=== PATIENT | female | born 1995 | race Caucasian/White ===

== ENCOUNTER 2023-08-15 21:17 | Outpatient (REF) | payer BC, OTHER, SELFPAY ==
[2023-08-21 12:09] LABS: Age Gdln ACOG Testing Note (.); IGP, rfx Aptima HPV ASCU Note (.)
== END 2023-08-15 21:18 | disposition home or self-care (01) ==
LOC: LAB 21:17
PROVIDERS: Family Provider Family Medicine; Visit Provider Physician Assistant
DX: Z01.419 Encounter for gynecological examination (general) (routine) without abnormal findings (principal)
CPT/HCPCS: G0145

== ENCOUNTER 2024-01-15 07:55 | Outpatient (OUT) | payer BC, OTHER, SELFPAY ==
--- NOTE | 2024-01-15 07:57 | US_ITS ---
[address] [address] Patient Name: JUHI COPE MRN: [id number] date: 1995 Sex: F Assigned Patient Location: [facility] Current Patient Location: [facility] Accession/Order Number: [id number] Exam Date: 01/15/2024 07:57 Report Date: 01/15/2024 11:42 At the request of: JONY MEJÍA Procedure: US pelvis w/ transvaginal EXAMINATION: US pelvis w/ transvaginal HISTORY: PELVIC PAIN COMPARISON: No relevant comparison available. TECHNIQUE: Transabdominal and/or transvaginal sonographic examination was performed as indicated by examination type. FINDINGS: UTERUS: Normal size and appearance. Uterus size: 7.3 x 3.1 x 4.4 cm ENDOMETRIUM: Normal homogeneous appearance. Endometrial thickness: 3 mm RIGHT OVARY: Normal size and appearance. Duplex Doppler demonstrates normal waveform and flow; resistive index 0.6. Ovary size: 2.5 x 1.3 x 2.7 cm LEFT OVARY: Normal size and appearance. Duplex Doppler demonstrates normal waveform and flow; resistive index 0.6. Ovary size: 3.6 x 1.2 x 2.3 cm CUL-DE-SAC: Unremarkable. No significant free fluid. BLADDER: Unremarkable. OTHER: None. US/US pelvis w/ transvaginal IMPRESSION: 1. Normal pelvic ultrasound. No suspicious findings to account for patient's symptoms. Electronically authenticated by: JOE WATERMAN Date: 01/15/2024 11:42
== END 2024-01-15 07:56 | disposition home or self-care (01) ==
LOC: NOMS 07:55
PROVIDERS: Family Provider Family Medicine; Visit Provider Obstetrics & Gynecology
DX: R10.2 Pelvic and perineal pain (principal)
CPT/HCPCS: 76830; 76856

== ENCOUNTER 2024-02-13 14:30 | Outpatient (OUT) | payer BC, OTHER, SELFPAY ==
--- NOTE | 2024-02-13 14:32 | ECG_ITS ---
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
--- OUTSIDE RECORDS SUMMARY | 2024-02-13 14:46 | XMS_ITS | CCD ---
Author Organization [facility] Care Team Providers Care Compressor Technician Name Role Phone Unavailable Unavailable OPAL LARA Referring Unavailable RODRÍGUEZ, CRUZ Primary Care Unavailable OPAL LARA Referring Unavailable RODRÍGUEZ, CRUZ Primary Care Unavailable RODRÍGUEZ, CRUZ Primary Care Physician Domo Hodges Unavailable PAOLO DIALLO Attending Unavailable KATHE RYDER Admitting Unavailable KATHE RYDER Attending Unavailable Rodríguez, Cruz Primary Care Unavailable PrintyCurz Admitting Unavailable Cruz Meza Attending Unavailable Rodríguez, Cruz Admitting Unavailable Rodríguez, Cruz Primary Care Unavailable RodríguezCruz Attending Unavailable Rodríguez, Cruz Primary Care Unavailable RodríguezCruz Attending Unavailable Rodríguez, Cruz Admitting Unavailable Rodríguez Cruz BLACKWELL Primary Care Provider Lara, Astrit H Admitting Unavailable Nathan POP Attending Unavailable MD Cruz Meza Admitting Unavailable MD Cruz Meza Attending Unavailable Von Loco Attending Unavailable Haferoz, Astrit H Attending Unavailable Fredi DORSEY Admitting Unavailable Fredi DORSEY Attending Unavailable GRIS DOWNSIN N Attending Unavailable MARGIER SRINIVASA N Referring Unavailable RODRÍGUEZ, CRUZ SAHIL Primary Care Unavailable MARCY RODRIGUEZN Attending Unavailable RODRÍGUEZ, CRUZ SAHIL Primary Care Unavailable MARGIER SRINIVASA Attending Unavailable RODRÍGUEZ, CRUZ SAHIL Primary Care Unavailable CHARLENE RODRIGUEZ Attending Unavailable RODRÍGUEZ, CRUZ SAHIL Primary Care Unavailable CHARLENE RODRIGUEZ Attending Unavailable RODRÍGUEZ, CRUZ SAHIL Primary Care Unavailable REAPER, SRINIVASA Referring Unavailable REAPER, SRINIVASA Attending Unavailable RODRÍGUEZ, CRUZ SAHIL Referring Unavailable CRUZ RODRÍGUEZ Primary Care Unavailable CHARLENE RODRIGUEZ Attending Unavailable CRUZ RODRÍGUEZ Primary Care Unavailable CHARLENE RODRIGUEZ Referring Unavailable Cruz Rodríguez MD Unavailable Cruz Rodríguez MD Primary Care Provider [phone] Cruz Rodríguez MD Unavailable iKta BLEACH ANALYST, Zenobia Unavailable Keesha BLEACH ANALYST, Trista Hurtado Unavailable [phone] NATHAN POP Attending Unavailable NATHAN POP Attending Unavailable CRUZ RODRÍGUEZ Attending Unavailable Allergies Allergy Classification Reported Allergen(s) Allergy Type Date of Onset Reaction(s) Facility (1 source) No Known Medication Allergies; Translations: [No Known Medication Allergies] Propensity to adverse reactions (disorder) [facility] Medications Current Medications Medication Drug Class(es) Dates Sig (Normalized) Sig (Original) atenolol 25 mg oral tablet (3 sources) beta-Adrenergic Negro Start: 02-02-2021 take 1 mg by mouth once daily atenolol 25 mg Tab mg tab(s), Oral, Daily, Refills(s) 0 Start Date: 02/02/21 Status: Ordered cephalexin 500 mg oral capsule (5 sources) Cephalosporin Antibacterial Start: 02-14-2021 End: 07-21-2022 take 1 capsule by mouth every twelve hours Keflex 500 mg Cap 500 mg = 1 cap(s), Oral, q12hr, X 7 day(s), # 14 cap(s), Refills(s) 0 Start Date: 07/14/22 Stop Date: 07/21/22 Status: Ordered cyproheptadine hydrochloride 4 mg oral tablet (8 sources) Start: 02-02-2021 take 1 mg by mouth three times daily cyproheptadine 4 mg Tab mg tab(s), Oral, TID, Refills(s) 0 Start Date: 02/02/21 Status: Ordered Dasetta 7/7/7 oral tablet (1 source) Start: 11-23-2016 take 1 tablet by mouth once daily Dasetta 7/7/7 oral tablet 1 tab(s), Oral, Daily, Refill(s) 0, control/menstrual regulation Start Date: 11/23/16 Status: Ordered docusate sodium 100 mg oral capsule (2 sources) Start: 07-14-2022 End: 07-24-2022 take 1 capsule by mouth twice daily Colace 100 mg Cap 100 mg = 1 cap(s), Oral, BID, X 10 day(s), # 20 cap(s), Refills(s) 0 Start Date: 07/14/22 Stop Date: 07/24/22 Status: Ordered ergocalciferol 0.05 mg oral capsule (1 source) Provitamin D2 Compound Start: 02-02-2021 Vitamin D2 2000 intl units oral capsule Oral, Daily, Refills(s) 0 Start Date: 02/02/21 Status: Ordered Ethinyl Estradiol / Levonorgestrel (2 sources) Progestin, Estrogen, Progestin-containin g Intrauterine Device Start: 01-10-2024 End: 04-09-2024 take 1 tablet by mouth in the morning, then take 1 tablet by mouth once daily levonorgestrel-ethi nyl estradiol (Jolessa) 0.15-0.03 MG tablet Indications: Uses control Take 1 tablet by mouth in the morning. Take 1 tablet by mouth daily. 90 tablet 0 01/10/2024 04/09/2024 Active {7 (Ethinyl Estradiol 0.035 MG / Norethindrone 0.5 MG Oral Tablet) / 7 (Ethinyl Estradiol 0.035 MG / Norethindrone 0.75 MG Oral Tablet) / 7 (Ethinyl Estradiol 0.035 MG / Norethindrone 1 MG Oral Tablet) / 7 (Inert Ingredients 1 MG Oral Tablet) } Pack [Dase (2 sources) Estrogen Start: 11-23-2016 take 1 tablet by mouth once daily Dasetta 7//7 oral tablet 1 tab(s), Oral, Daily, Refill(s) 0, control/menstrual regulation Start Date: 11/23/16 Status: Ordered ethinyl estradiol 0.035 mg / norgestimate 0.25 mg oral tablet (3 sources) Progestin, Estrogen Start: 01-15-2023 norgestimate-ethiny l estradiol (Ortho-Cyclen) 0.25-35 MG-MCG tablet 1 (one) time each day at the same time. 0 01/15/2023 Active Bibb-Linyah 0.25 -35 MG-MCG Oral for 28 Not-Taking hydrOXYzine hydrochloride 25 mg oral tablet (8 sources) Antihistamine Start: 02-02-2021 take 1 mg by mouth four times daily hydrOXYzine hydrochloride 25 mg Tab mg tab(s), Oral, QID, Refills(s) 0 Start Date: 02/02/21 Status: Ordered hyoscyamine sulfate 0.125 mg oral tablet (8 sources) Start: 03-10-2021 take 1 tablet by mouth every six hours Levsin 0.125 mg SL Tab 0.125 mg = 1 tab(s), Oral, q6hr, # 20 tab(s), Refills(s) 1, [facility]: [id number], 161, cm, 03/10/21 11:21:00 EDT, Height/Length Dosing, 56, kg, 03/10/21 11:21:00 EDT, Weight Dosing Start Date: 03/10/21 Status: Ordered ibuprofen 600 mg oral tablet (8 sources) Nonsteroidal Anti-inflammatory Drug Start: 01-23-2022 take 1 tablet by mouth every six hours ibuprofen 600 mg Tab 600 mg = 1 tab(s), Oral, q6hr, # 40 tab(s), Refills(s) 0, [facility]: [facility], 157, cm, 01/23/22 7:20:00 EST, Height/Length Dosing, 55, kg, 01/23/22 7:20:00 EST, Weight Dosing Start Date: 01/23/22 Status: Ordered meloxicam 15 mg oral tablet (3 sources) Nonsteroidal Anti-inflammatory Drug Start: 02-02-2021 take 1 mg by mouth once daily meloxicam 15 mg oral tablet mg tab(s), Oral, Daily, Refills(s) 0 Start Date: 02/02/21 Status: Ordered 24 hr metoprolol succinate 25 mg extended release oral tablet (15 sources) beta-Adrenergic Negro Start: 10-23-2023 take 1 tablet by mouth once daily metoprolol succinate XL (Toprol-XL) 25 MG 24 hr tablet Indications: Hypertension, unspecified type (CMS/HCC) Take 1 tablet by mouth daily 90 tablet 1 10/23/2023 Active Start: 02-27-2023 metoprolol suc cinate ER (TOPROL XL) 25 mg 24 hr tablet norethindrone acetate 5 mg oral tablet (20 sources) Start: 05-17-2023 End: 07-01-2024 take 2 tablets by mouth once daily norethindrone (AYGESTIN) 5 mg tablet Take 2 tablets by mouth once daily. 60 tablet 5 01/03/2024 07/01/2024 Active Start: 04-11-2023 End: 04-10-2024 norethindrone (Aygestin) 5 M G tablet Start: 07-21-2020 take 1 tablet by ghada th once daily Norethindrone Acetate 5 MG Oral Tablet TAKE 1 TABLET DAILY. Quantity: 1 Refills: 0 Ordered: 21-Jul-2020 Meñofanny Charlene DAY Start : 21-Jul-2020 Active Comment on above: Take 1 tablet by ghada th once daily. Take 2 tablets by [facility] once daily. ondansetron 4 mg oral tablet (8 sources) Serotonin-3 Receptor Antagonist Start: 07-14-2022 take 1 tablet by mouth every six hours as needed for nausea Zofran 4 mg Tab 1 tab(s), Oral, q6hr, PRN Nausea, # 8, Refills(s) 0 Start Date: 07/14/22 Status: Ordered Start: 06-08-2020 take 1 tablet by ghada th three times daily Zofran 4 MG 1 tablet Orally THREE TIMES A DAY for 30 day(s) May, Not-Taking pramoxine hydrochloride 10 mg/ml rectal foam (2 sources) Start: 07-14-2022 End: 07-21-2022 take 15 g rectal route twice daily ProctoFoam 1% Foam apply, Rectal, BID for 7 day(s), 15 gm, Refill(s) 0 Start Date: 07/14/22 Stop Date: 07/21/22 Status: Ordered Multivitamins with Vitamin B Complex, Vitamin C, Minerals and L-Methylfolate oral capsule (7 sources) Start: 07-14-2022 Multivitamins with Vitamin B Complex, Vitamin C, Minerals and L-Methylfolate oral capsule 1 cap(s), Oral, Daily, 30 cap(s), Refill(s) 0 Start Date: 07/14/22 Status: Ordered SUMAtriptan 100 mg oral tablet (8 sources) Serotonin-1b and Serotonin-1d Receptor Agonist Start: 02-02-2021 take 1 mg by mouth once Imitrex 100 mg Tab mg tab(s), Oral, Once, Refills(s) 0 Start Date: 02/02/21 Status: Ordered tiZANidine 4 mg oral tablet (3 sources) Central alpha-2 Adrenergic Agonist Start: 02-02-2021 take 1 mg by mouth every eight hours tiZANidine 4 mg Tab mg tab(s), Oral, q8hr, Refills(s) 0 Start Date: 02/02/21 Status: Ordered Vitamin D2 2000 intl units oral capsule (7 sources) Start: 02-02-2021 Vitamin D2 200 0 intl units oral capsule Oral, Daily, Refills(s) 0 Start Date: 02/02/21 Status: Ordered Completed/Discontinued Medications Medication Drug Class(es) Dates Sig (Normalized) Sig (Original) atropine sulfate 0.0194 mg / hyoscyamine sulfate 0.1037 mg / PHENobarbital 16.2 mg / scopolamine hydrobromide 0.0065 mg oral tablet (1 source) Anticholinergic, Cholinergic Muscarinic Antagonist Start: 05-27-2020 take 1 tablet by mouth every eight hours 16.2 MG 1 tablet Orally Three times a day for 30 day(s) May, Not-Taking baclofen suppository 10 mg (CPD) (6 sources) Start: 08-24-2023 baclofen suppository 10 mg (CPD) Indications: High-tone pelvic floor dysfunction , Chronic pelvic pain in female Unwrap and insert one suppository vaginally daily at bedtime. 30 Suppository 2 08/24/2023 Active Comment on above: Unwrap and insert on e suppository vaginally daily at bedtime. chlordiazePOXIDE hydrochloride 5 mg / clidinium bromide 2.5 mg oral capsule (1 source) Anticholinergic, Benzodiazepine Start: 06-02-2020 take 1 capsule by mouth every eight hours chlordiazePOXIDE-Cl idinium 5-2.5 MG 1 capsule before meals Orally Three times a day for 30 day(s) May, Not-Taking cyclobenzaprine hydrochloride 5 mg oral tablet (20 sources) Muscle Relaxant Start: 05-01-2023 End: 01-10-2024 take 1 tablet by mouth every twenty-four hours as needed cyclobenzaprine (Flexeril) 5 MG tablet Take 5 mg by mouth Daily as needed. 0 05/01/2023 01/10/2024 Discontinued (Therapy completed) Start: 11-07-2021 take 1 tablet by ghada th three times daily as needed for muscle spasms cyclobenzaprine 10 mg Tab 10 mg = 1 tab(s), Oral, TID, PRN for spasm, # 30 tab(s), Refills(s) 0, Pharmacy: [facility], 157, cm, 01/23/22 7:20:00 EST, Height/Length Dosing, 55, kg, 01/23/22 7:20:00 EST, Weight Dosing Start Date: 01/23/22 Status: Ordered Comment on above: Take 1 tablet by ghada th at bedtime as needed. elagolix 150 mg oral tablet (11 sources) Start: 07-16-2023 End: 07-15-2024 take 1 tablet by mouth in the morning Orilissa tablet Take 150 mg by mouth in the morning. 0 07/16/2023 01/10/2024 Discontinued (Therapy completed) Start: 02-09-2022 take 1 tablet by ghada th twice daily Orilissa 200 MG Oral Tablet take 1 tablet by mouth twice a day Quantity: 60 Refills: 4 Ordered: 09-Feb-2022 Charlene Rodriguez DO Start : 09-Feb-2022 Active Comment on above: Take 1 tablet (150 m g) by mouth once daily. FLUoxetine 20 mg oral capsule (14 sources) Serotonin Reuptake Inhibitor Start: 06-02-2021 take 1 capsule by mouth once daily FLUoxetine HCl - 20 MG Oral Capsule TAKE 1 CAPSULE Daily Quantity: 30 Refills: 11 Ordered: 02-Jun-2021 Charlene Rodriguez DO Start : 02-Jun-2021 Active take 1 capsule by mouth once chapis ly FLUoxetine (PROZAC) 10 mg capsule Take 10 mg by mouth once daily. 0 Active Comment on above: Take 10 mg by mouth once daily. iv contrast (will be provided with radiology test) (10 sources) Start: 023 iv contrast (will be provided with radiology test) MRI Female Pelvis Inject, intravenously, once for 1 dose. No IV access, insert saline lock prior to the beginning of sedation, infusion, injection of imaging exam. Discontinue saline lock post exam. If Pt has a central line or IVAD, may access for administration according to line specific nursing protocol. Once exam is complete flush line and de-access according to line specific nursing protocol in the MR contrast administration guidelines link. 1 Each 0 05/17/2023 Active Comment on above: MRI Female Pelvis In ject, intravenously, once for 1 dose. No IV access, insert saline lock prior to the beginning of sedation, infusion, injection of imaging exam. Discontinue saline lock post exam. If Pt has a central line or IVAD, may access for administration according to line specific nursing protocol. Once exam is complete flush line and de-access according to line specific nursing protocol in the MR contrast administration guidelines link. metoclopramide 10 mg oral tablet (1 source) Dopamine-2 Receptor Antagonist Start: 020 take 1 tablet by mouth every eight hours Reglan 10 MG 1 tablet before meals Orally tid for 30 day(s) March, Not-Taking naproxen 500 mg oral tablet (20 sources) Nonsteroidal Anti-inflammatory Drug Start: 021 take 1 tablet by mouth twice daily naproxen 500 mg oral enteric coated tablet 500 mg = 1 tab(s), Oral, BID, # 28 tab(s), Refills(s) 0 Start Date: 11/07/21 Status: Ordered Start: 03-04-2021 End: 07-10-2023 take 1 tablet by mouth every twelve hours as needed naproxen (NAPROSYN) 500 mg tablet Take 1 tablet by mouth twice daily as needed. for pain. Take with food. 30 tablet 3 04/11/2023 07/10/2023 Comment on above: Take 1 tablet by ghada twice daily as needed. for pain. Take with food. nitrofurantoin, macrocrystals 25 mg / nitrofurantoin, monohydrate 75 mg oral capsule (6 sources) Nitrofuran Antibacterial Start: 021 Nitrofurantoin Monohyd Macro 100 MG Oral Capsule TAKE 1 CAPSULE Other Please take one capsule after sexual intercourse to prevent UTI Quantity: 30 Refills: 11 Ordered: 01-Apr-2021 Nicholas Chau MD Start : 01-Apr-2021 Active phenazopyridine hydrochloride 200 mg oral tablet (8 sources) Start: take 1 tablet by mouth three times daily Pyridium 200 mg Tab 200 mg = 1 tab(s), Oral, TID, Take one tab by mouth three times a day for three days, # 9 tab(s), Refills(s) 0, Pharmacy: [facility], 157, cm, 03/04/21 7:22:00 EDT, Height/Length Dosing, 52, kg, 03/04/21 7:22:00 EDT, Weight Dosing Start Date: 03/04/21 Status: Ordered predniSONE 10 mg oral tablet (2 sources) Start: End: take 2 tablets by mouth twice daily, then take 1 tablet by mouth twice daily, then take 1 tablet by mouth once daily predniSONE (Deltasone) 10 MG tablet Indications: Plantar fasciitis Take 2 pills by mouth twice daily for 5 days, take 1 pill twice daily for 5 days then 1 pill once daily for 5 days. 35 tablet 0 09/10/2023 01/10/2024 Discontinued (Therapy completed) Surgical Lubricant Jelly gel (10 sources) Start: Surgical Lubricant Jelly gel For MRI Female Pelvis, MRI department to provide. Administer intra-vaginal Surgilube immediately prior the MRI procedure (total amount to patient toleranace). 1 g 0 05/17/2023 Active Comment on above: For MRI Female Pelvi s, MRI department to provide. Administer intra-vaginal Surgilube immediately prior the MRI procedure (total amount to patient toleranace). traMADol hydrochloride 50 mg oral tablet (7 sources) Opioid Agonist Start: take 1 tablet by mouth every four hours as needed for pain traMADol (ULTRAM) 50 mg tablet Indications: Pelvic pain in female Take 1 tablet by mouth every 4 hours as needed for pain. 20 tablet 0 08/30/2023 Active Start: 08-18-2020 take 1 tablet by ghada th every six hours traMADol HCl - 50 MG Oral Tablet TAKE 1 TABLET Every 6 hours Quantity: 20 Refills: 0 Ordered: 18-Aug-2020 Charlene Rodriguez DO Start : 18-Aug-2020 Active Comment on above: Take 1 tablet by ghada th every 4 hours as needed for pain. Problems Active Problems Problem Classification Problem Date Documented Da te Episodic/Chronic Abdominal pain (16 sources) Epigastric pain; Translations: [Epigastric pain] Onset: 07-14-2022 Episodic Anxiety disorders (16 sources) Anxiety; Translations: [Anxiety state, unspecified] Onset: 10-08-2020 10-08-2020 Chronic Cardiac dysrhythmias (2 sources) Paroxysmal tachycardia; Translations: [Paroxysmal tachycardia, unspecified] Onset: 03-29-2023 03-29-2023 Chronic Deficiency and other anemia (1 source) Anemia, unspecified; Translations: [Anemia, unspecified] Onset: 03-23-2023 Episodic Endometriosis (7 sources) Endometriosis (clinical); Translations: [Endometriosis, site unspecified] Onset: 03-29-2023 Chronic Essential hypertension (16 sources) Essential (primary) hypertension; Translations: [Hypertensive disorder] Onset: 03-23-2023 10-08-2020 Chronic Genitourinary symptoms and ill-defined conditions (20 sources) Microscopic hematuria; Translations: [Nocturia] 02-02-2021 Episodic Headache; including migraine (20 sources) Migraine; Translations: [Migraine, unspecified, not intractable, without status migrainosus] Onset: 10-08-2020 08-07-2018 Chronic Headache; including migraine (10 sources) Headache; Translations: [Headache, unspecified] Onset: 01-31-2023 02-14-2021 Episodic Hemorrhoids (1 source) Hemorrhoids; Translations: [Unspecified hemorrhoids] Onset: 07-14-2022 Episodic Hypertension complicating ; childbirth and the puerperium (4 sources) Severe pre-eclampsia complicating childbirth; Translations: [Severe pre-eclampsia, third trimester] Onset: 11-28-2022 Episodic Joint disorders and dislocations; trauma-related (2 sources) Disorder of left patellofemoral joint; Translations: [Patellofemoral disorders, left knee] Onset: 03-29-2023 03-29-2023 Chronic Joint disorders and dislocations; trauma-related (2 sources) Disorder of right patellofemoral joint; Translations: [Patellofemoral disorders, right knee] Onset: 03-29-2023 03-29-2023 Chronic Menstrual disorders (20 sources) Dysmenorrhea; Translations: [Dysmenorrhea, unspecified] Onset: 10-08-2020 04-23-2019 Chronic Nausea and vomiting (1 source) Nausea and vomiting; Translations: [Nausea with vomiting, unspecified] Episodic Nonspecific chest pain (1 source) Chest pain; Translations: [Chest pain, unspecified] Episodic Nutritional deficiencies (2 sources) Vitamin D deficiency; Translations: [Vitamin D deficiency, unspecified] Onset: 03-29-2023 03-29-2023 Chronic Other acquired deformities (2 sources) Scoliosis deformity of spine; Translations: [Scoliosis, unspecified] Onset: 03-29-2023 03-29-2023 Chronic Other bone disease and musculoskeletal deformities (8 sources) Disorder of bone 08-07-2018 Episodic Comment on above: right shoulder right shoulder Other circulatory disease (1 source) Elevated blood-pressure reading without diagnosis of hypertension; Translations: [Elevated blood-pressure reading, without diagnosis of hypertension] Onset: 09-12-2023 Episodic Other complications of ; puerperium affecting management of mother (1 source) Delayed AND/OR secondary hemorrhage; Translations: [Delayed and secondary hemorrhage] Onset: 12-30-2022 Episodic Other complications of (1 source) Finding related to ; Translations: [Other specified related conditions, unspecified trimester] Onset: 07-14-2022 Episodic Other connective tissue disease (1 source) Diastasis recti; Translations: [Separation of muscle (nontraumatic), other site] Episodic Other female genital disorders (8 sources) Abnormal uterine bleeding 04-23-2019 Chronic Other female genital disorders (1 source) Dyspareunia; Translations: [Other specified dyspareunia] Chronic Other female genital disorders (2 sources) Pain in female genitalia on intercourse; Translations: [Unspecified dyspareunia] Onset: 03-29-2023 03-29-2023 Chronic Other female genital disorders (2 sources) Pelvic floor dysfunction; Translations: [Other specified conditions associated with female genital organs and menstrual cycle] Episodic Other gastrointestinal disorders (1 source) Constipation, unspecified; Translations: [Constipation, unspecified] Onset: 07-14-2022 Episodic Other hereditary and degenerative nervous system conditions (2 sources) Finding of scapular structure; Translations: [Other specified extrapyramidal and movement disorders] Onset: 05-04-2023 05-04-2023 Chronic Other nervous system disorders (1 source) Other chronic pain; Translations: [Chronic pelvic pain in female] Onset: 08-24-2023 Chronic Other nervous system disorders (2 sources) Chronic pain; Translations: [Other chronic pain] Onset: 03-29-2023 03-29-2023 Chronic Other screening for suspected conditions (not mental disorders or infectious disease) (2 sources) Elevated liver enzymes level; Translations: [Other specified abnormal findings of blood chemistry] Onset: 04-18-2022 Resolved: 04-18-2022 Episodic Other upper respiratory disease (2 sources) Allergic rhinitis due to pollen; Translations: [Allergic rhinitis due to pollen] Onset: 03-29-2023 03-29-2023 Chronic Residual codes; unclassified (2 sources) Contraception ; Translations: [Other specified health status] 01-10-2024 Episodic Spondylosis; intervertebral disc disorders; other back problems (2 sources) 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; Translations: [Other cervical disc displacement, unspecified cervical region] Onset: 03-29-2023 03-29-2023 Chronic Unclassified (1 source) Paroxysmal tachycardia, unspecified; Translations: [Paroxysmal tachycardia, unspecified] Onset: 08-23-2022 Unclassified (1 source) Z34.01 - Encounter for supervision of normal first , first trimester; Translations: [Z34.01 - Encounter for supervision of normal first , first trimester] Onset: 05-16-2022 Urinary tract infections (20 sources) Recurrent urinary tract infection; Translations: [Urinary tract infection, site not specified] Onset: 07-14-2022 03-10-2021 Episodic Past or Other Problems Problem Classification Problem Date Documented Da te Episodic/Chronic Acquired foot deformities (2 sources) Acquired equinus deformity of foot; Translations: [Other acquired deformities of unspecified foot] Onset: 03-29-2023 03-29-2023 Episodic Nutritional deficiencies (2 sources) Cobalamin deficiency; Translations: [Deficiency of other specified B group vitamins] Onset: 03-29-2023 03-29-2023 Episodic Other connective tissue disease (2 sources) Posterior calcaneal exostosis; Translations: [Calcaneal spur, unspecified foot] Onset: 03-29-2023 03-29-2023 Episodic Other disorders of stomach and duodenum (3 sources) Gastroparesis syndrome; Translations: [Gastroparesis] Onset: 03-29-2023 03-29-2023 Episodic Other female genital disorders (1 source) Other specified conditions associated with female genital organs and menstrual cycle; Translations: [High-tone pelvic floor dysfunction] Onset: 08-24-2023 Episodic Other gastrointestinal disorders (15 sources) Constipation; Translations: [Constipation, unspecified] Onset: 10-08-2020 10-08-2020 Episodic Other gastrointestinal disorders (2 sources) Swallowing painful; Translations: [Dysphagia, unspecified] Onset: 03-29-2023 03-29-2023 Episodic Other nutritional; endocrine; and metabolic disorders (14 sources) Loss of appetite; Translations: [Anorexia] Onset: 05-27-2020 10-08-2020 Episodic Syncope (13 sources) Vasovagal syncope; Translations: [Syncope and collapse] Onset: 12-08-2014 12-08-2014 Episodic Unclassified (7 sources) Onset: 07-14-2022 Resolved: 03-26-2023 07-14-2022 Results Test Name Value Interpretation Reference Range Facility [facility] 12-12-2023 [facility] Telephone ([facility]) DRISS COPE ([id number]) 1995 F Date Time Provider Department 12/12/23 CHARLENE RODRIGUEZ [facility] During your visit today, we recorded the following information about you: Christa Garces 12/12/2023 2:16 PM Signed 1st attempt to contact the patient to schedule surgery. Allergies As of Date: 12/12/2023 (No Known Allergies) Date Reviewed: 12/10/2023 Reviewed by: Alayna Faye - Fully Assessed Reason for Visit: Schedule Surgery [1330] Prescriptions as of 12/12/2023 - traMADol (ULTRAM) 50 mg tablet Take 1 tablet by mouth every 4 hours as needed for pain. - baclofen suppository 10 mg (CPD) Unwrap and insert one suppository vaginally daily at bedtime. - elagolix (ORILISSA) 150 mg tablet Take 1 tablet (150 mg) by mouth once daily. - norethindrone (AYGESTIN) 5 mg tablet Take 2 tablets by mouth once daily. - iv contrast (will be provided with radiology test) MRI Female Pelvis Inject, intravenously, once for 1 dose. No IV access, insert saline lock prior to the beginning of sedation, infusion, injection of imaging exam. Discontinue saline lock post exam. If Pt has a central line or IVAD, may access for administration according to line specific nursing protocol. Once exam is complete flush line and de-access according to line specific nursing protocol in the MR contrast administration guidelines link. - Surgical Lubricant Jelly gel For MRI Female Pelvis, MRI department to provide. Administer intra-vaginal Surgilube immediately prior the MRI procedure (total amount to patient toleranace). - cyclobenzaprine (FLEXERIL) 5 mg tablet Take 1 tablet by mouth at bedtime as needed. - metoprolol succinate ER (TOPROL XL) 25 mg 24 hr tablet - norethindrone (AYGESTIN) 5 mg tablet Take 1 tablet by mouth once daily. - FLUoxetine (PROZAC) 10 mg capsule Take 10 mg by mouth once daily. Problem List As Of Date 12/12/2023 Noted Resolved Vasovagal attack [R55] 12/08/2014 Dysmenorrhea [N94.6] 10/08/2020 Anorexia [R63.0] 05/27/2020 Anxiety [F41.9] 10/08/2020 Constipation [K59.00] 10/08/2020 Migraine [G43.909] 10/08/2020 HTN (hypertension) [I10] Encounter Status:Closed by CHRISTA GARCES on 12/12/23 [facility] CNOVon 12-10-2023 [facility] DRISS COPE ([id number]) 1995 F Date Time Provider Department 12/10/23 10:30 AM CHARLENE RODRIGUEZ During your visit today, we recorded the following information about you: Pulse Blood pressure Weight 98/minute 124/84 68.9 kg MeñoCharlene escobedoDO 12/10/2023 3:[address] [facility] SECTION FOR MINIMALLY INVASIVE GYNECOLOGIC SURGERY OUTPATIENT VISIT DATE 12/10/2023 OUTPATIENT VISIT TYPE Follow-up visit PRIMARY CARE PHYSICIAN: Cruz Rodríguez [address] [place] [address] REFERRING PHYSICIAN: Self CHIEF COMPLAINT: No chief complaint on file. HISTORY OF PRESENT ILLNESS: Driss Cope is a pleasant 28 year old female who presents for evaluation of pelvic pain. ========= MEGAN 07/16/23: IMPRESSION: Ms. Cope is a 28 year old female who presents today with pelvic pain Reviewed pelvic MRI. Discussed findings with patient. Discussed medical and surgical management options. Rx'd Orilissa 150 mg daily. If patient continues to have pain, will proceed with diagnostic laparoscopy. Encouraged follow up with pelvic floor PT. Written and verbal health teaching given to patient, patient verbalizes understanding and agrees with treatment plan. Charlene DO Kuldip In clinic today, pt reports she still has pain monthly but no bleeding. States Orilissa has not improved her pain. She continues to have cramping and discomfort. Has failed norethindrone and Orilissa. 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 History Comments: Sexual Activity: Never; No partner data on record Contraception: Pill Past Obstetrical History: OB History T0 L1 SAB0 IAB0 Ectopic0 Multiple0 Live Births0 Past Medical History: PAST MEDICAL HISTORY Diagnosis Date Endometriosis HTN (hypertension) PONV (postoperative nausea and vomiting) Past Surgical History: PAST SURGICAL HISTORY Procedure Laterality Date APPENDECTOMY 2016 COLONOSCOPY COLONOSCOPY 10/25/2020 repeat 5 years PAST SURGICAL HISTORY OF 02/2019; 08/2020 laparoscopy for endometriosis Family History: FAMILY HISTORY Problem Relation Age of Onset Cancer Father Hypertension Maternal Grandfather Anesthesia Problems No Family History Blood Clots No Family History Clotting Disorder No Family History Social History: Social History Tobacco Use Smoking status: Never Smokeless tobacco: Never Substance Use Topics Alcohol use: Yes Comment: maybe a few drinks a month Drug use: No Current Outpatient Medications Medication Sig traMADol (ULTRAM) 50 mg tablet Take 1 tablet by mouth every 4 hours as needed for pain. elagolix (ORILISSA) 150 mg tablet Take 1 tablet (150 mg) by mouth once daily. metoprolol succinate ER (TOPROL XL) 25 mg 24 hr tablet norethindrone (AYGESTIN) 5 mg tablet Take 1 tablet by mouth once daily. baclofen suppository 10 mg (CPD) Unwrap and insert one suppository vaginally daily at bedtime. (Patient not taking: Reported on 12/10/2023) norethindrone (AYGESTIN) 5 mg tablet Take 2 tablets by mouth once daily. iv contrast (will be provided with radiology test) MRI Female Pelvis Inject, intravenously, once for 1 dose. No IV access, insert saline lock prior to the beginning of sedation, infusion, injection of imaging exam. Discontinue saline lock post exam. If Pt has a central line or IVAD, may access for administration according to line specific nursing protocol. Once exam is complete flush line and de-access according to line specific nursing protocol in the MR contrast administration guidelines link. Surgical Lubricant Jelly gel For MRI Female Pelvis, MRI department to provide. Administer intra-vaginal Surgilube immediately prior the MRI procedure (total amount to patient toleranace). cyclobenzaprine (FLEXERIL) 5 mg tablet Take 1 tablet by mouth at bedtime as needed. (Patient not taking: Reported on 12/10/2023) FLUoxetine (PROZAC) 10 mg capsule Take 10 mg by mouth once daily. (Patient not taking: Reported on 05/01/2023) No current facility-administered medications for this visit. Allergies As of Date: 12/10/2023 (No Known Allergies) Fully Assessed 12/10/2023 REVIEW OF SYSTEMS: POSITIVES IN BOLD Constitutional: Denies fever or chills GI: Denies abdominal pain, nausea, vomiting, bloody stools or diarrhea : Denies dysuria Psychiatric: Denies depression or anxiety PHYSICAL EXAMINATION: Vital Signs: 12/10/23 1019 BP: 124/84 Pulse: 98 Weight: 68.9 kg (151 lb 14.4 oz) Body mass index is 27.78 kg/m?. General appearance: Well appearing, alert, in no acute distress, well-hydrated, well nourished. Skin: Skin color, texture (more content not included)... [facility] Consent for Treatmenton 08-26 Consent for Treatment [id number] IFF [facility] Discharge Instructionson Discharge Instructions [id number] IFF [facility] ED Clinical Summaryon 2022 ED Clinical Summary (Inserted Image. Poly ble to display) [place] [id number] ED Clinical Summary Person Information Name: DRISS COPE [facility] Age: 28 Years : 1995 Sex: Female Language: Paraguayan PCP: CRUZ RODRÍGUEZ MD Marital Status: Single Visit Id: Visit Reason: Blood pressure check; Headache; HEADACHE Speciality: Acuity: 3 Enc Type: Emergency Med Service: Emergency Arrival: 09/12/2023 17:21:17 Discharge: 09/12/2023 18:18:02 LOS: 000 00:57 Checkin: 09/12/2023 17:21:17 Checkout: 09/12/2023 18:18:02 Dispo Type: Home (Routine DC) EVENTS: Event Name Event Status Request Date/Time Start Date/Time Complete Date/Time Arrive Complete 09/12/2023 17:21:17 09/12/2023 17:21:17 09/12/2023 17:21:17 Document Home Meds Request 09/12/2023 17:21:17 Triage Complete 09/12/2023 17:21:17 09/12/2023 17:36:42 09/12/2023 17:36:42 Registration Complete 09/12/2023 17:23:06 09/12/2023 17:23:06 09/12/2023 17:23:06 Reg Complete Request 09/12/2023 17:23:06 Reg Bed Request Complete 09/12/2023 17:23:06 09/12/2023 17:23:06 09/12/2023 17:23:06 Bed Assign Complete 09/12/2023 17:23:45 09/12/2023 17:23:45 09/12/2023 17:23:45 Dr Exam Complete 09/12/2023 17:23:45 09/12/2023 17:27:54 09/12/2023 17:27:54 RN Exam Complete 09/12/2023 17:23:45 09/12/2023 17:38:29 09/12/2023 17:38:29 Registration Request 09/12/2023 17:27:54 Dr Exam Complete 09/12/2023 17:28:07 09/12/2023 17:28:07 09/12/2023 17:28:07 Meds Admin Complete 09/12/2023 18:02:41 09/12/2023 18:13:56 Discharge Complete 09/12/2023 18:03:45 09/12/2023 18:18:13 09/12/2023 18:18:13 Transfer Complete 09/12/2023 18:18:13 09/12/2023 18:18:13 09/12/2023 18:18:13 ADDRESS: [address] [place] [id number] PHYS DOC NOTES: MEDICAL INFORMATION: Prescriptions Given: Medications to Continue with No Changes Other Medications cyclobenzaprine (cyclobenzaprine 10 mg Tab) 1 Tablets By Mouth 3 times a day as needed for spasm. Refills: 0. cyclobenzaprine (cyclobenzaprine 10 mg Tab) 1 Tablets By Mouth 3 times a day as needed Spasm. Refills: 0. cyproheptadine (cyproheptadine 4 mg Tab) By Mouth 3 times a day. ergocalciferol (Vitamin D2 2000 intl units oral capsule) By Mouth every day. hydrOXYzine (hydrOXYzine hydrochloride 25 mg Tab) By Mouth 4 times a day. hyoscyamine (Levsin 0.125 mg SL Tab) 1 Tablets By Mouth every 6 hours. Refills: 1. ibuprofen (ibuprofen 600 mg Tab) 1 Tablets By Mouth every 6 hours. Refills: 0. multivitamin, ( Multivitamins with Vitamin B Complex, Vitamin C, Minerals and L-Methylfolate oral capsule) 1 Capsules By Mouth every day. naproxen (naproxen 500 mg oral enteric coated tablet) 1 Tablets By Mouth 2 times a day. Refills: 0. naproxen (naproxen 500 mg Tab) 1 Tablets By Mouth 2 times a day. Take one tab by mouth two times a day. Refills: 0. ondansetron (Zofran 4 mg Tab) By Mouth every 6 hours as needed Nausea. phenazopyridine (Pyridium 200 mg Tab) 1 Tablets By Mouth 3 times a day. Take one tab by mouth three times a day for three days. Refills: 0. sumatriptan (Imitrex 100 mg Tab) By Mouth Once. PATIENT EDUCATION INFORMATION: Instructions: How to Take Your Blood Pressure; Hypertension, Adult, Uopg-iu-Pbyx; General Headache Without Cause, Pcwp-bi-Xcqp Follow up: With: Address: When: CRUZ RODRÍGUEZ [facility] [place] [id number] [facility] () In 3 days 09/15/2023 Comments: Follow-up with your primary care provider in 3 to 5 days. If symptoms worsen, do not improve, or new symptoms arise please report back to emergency department for further evaluation. DIAGNOSIS: Elevated blood pressure reading; Headache [facility] ED Note-Physicianon 09-12-20 ED Note-Physician Basic Information Time Seen: Eric CLAYTON, Nikita Justin. 09/12/2023 17:27 Chief Complaint patient states that her blood pressure has been fluctuating and headache. Patient sttaes frontal headache. History of Present Illness 28-year-old female reports to the emergency department with a chief complaint of a frontal headache. Reports has been going on for the last week or so. She states that she has noticed her blood pressure has been fluctuating as well. Reports that she takes it at random times throughout the day. Reports that she is currently on metoprolol for this. States that she is on the lower dose. Reports that she does have a history of preeclampsia with during , and just wanted to get checked out. Denies any visual changes, chest pain or shortness of breath. Denies any heart issues otherwise. Review of Systems A 10 point review of systems is negative except as noted above. Medical and Surgical History: Reviewed and noted Social history: Lives at home Family History: Reviewed. Tobacco: Denies Physical Exam Vitals & Measurements T: 37.2 ?C(Oral) HR: 122(Peripheral) RR: 16 BP: 135/91 HT: 157 cm WT: 65 kg BMI: 26.37 General: The patient appears well and in no apparent distress. Patient is resting comfortably in chair. Afebrile Skin: Warm, dry, no pallor noted. Head: Normocephalic, atraumatic Neck: No JVD Eye: PERRLA, EOMI ENT: Moist mucus membranes Cardiovascular: Regular rate normal peripheral perfusion Respiratory: No respiratory distress no accessory muscle use no obvious audible wheezing Chest Wall: no deformity Musculoskeletal: normal ROM, no deformity, no swelling GI: No obvious distention soft nontender nondistended no guarding rebounding or rigidity Neurological: A&Ox4. moves all extremities equal strength and symmetry. No focal neurological defects. Psychiatric: Cooperative and appropriate Medical Decision Making MEDICAL DECISION MAKING Number and Complexity of Problems Differential Diagnosis: [] [facility] Data External documents reviewed: [] My EKG interpretation: [] My CT interpretation: [] My X-ray interpretation: [] My Ultrasound interpretation: [] Decision rules/scores evaluated: [] Discussed with: [] Treatment and Disposition ED Course: 28-year-old female reports to the emergency department with a chief complaint of headache, as well as changes in the blood pressure. Reports that she does have a history of migraines. Reports that headache is in the front of her headache. Denies any visual changes or nausea or vomiting. She states that she has not any chest pain or shortness of breath. Physical exam of the patient is completely benign. No focal neurological defects. Her blood pressure here initially is 135/91. Is relatively benign blood pressure. Due for headache, I am not seeing any warning red flag symptoms. Denies the worst headache of her life. States it was gradual in onset and not sudden. Denies any thunderclap headache. Due to this, no CT was performed. Due to her symptoms, I did give her Benadryl, ibuprofen, and Reglan. Discussed follow-up with PCP. Follow-up with your primary care provider in 3 to 5 days. If symptoms worsen, do not improve, or new symptoms arise please report back to emergency department for further evaluation. The patient was understanding and agreeable to plan moving forward. Shared decision making: [] Code status: [] Assessment/Plan Elevated blood pressure reading (R03.0: Elevated blood-pressure reading, without diagnosis of hypertension) Headache (R51.9: Headache, unspecified) Orders: diphenhydrAMINE, 25 mg = 1 cap(s), Cap, Oral, Once, Stop date 09/12/23 18:02:00 EDT, STAT, Start date 09/12/23 18:02:00 EDT, 09/12/23 18:02:00 EDT ibuprofen, 800 mg = 1 tab(s), Tab, Oral, Once, Stop date 09/12/23 18:01:00 EDT, STAT, Start date 09/12/23 18:01:00 EDT, 09/12/23 18:01:00 EDT metoclopramide, 10 mg = 2 tab(s), Tab, Oral, Once, Stop date 09/12/23 18:02:00 EDT, STAT, Start date 09/12/23 18:02:00 EDT, 09/12/23 18:02:00 EDT Disposition Plan Patient Discharge Condition Stable Discharge Disposition to home Discharge Prescription List Prescriptions No active prescription medications Follow-up With When Contact Information CRUZ RODRÍGUEZ In 3 days 09/15/2023 EDT [address] [place] [address]- Business (1) Additional Instructions: Follow-up with your primary care provider in 3 to 5 days. If symptoms worsen, do not improve, or new symptoms arise please report back to emergency department for further evaluation. Patient Education How to Take Your Blood Pressure Hypertension, Adult, Oipd-av-Bmkb General Headache Without Cause, Zmks-if-Epzu Attestation Patient seen and evaluated by the physician health center assistant. Attending physician was present in the emergency department and supervised care. This visit was performed by both the physician and an APC. I performed all aspects of the MDM as doc (more content not included)... [facility] Comment on above: Result Comment: Elec tronically Signed By: Nikita Reyes PA-C\.br\Date and Time Signed: 09/12/23 18:09 EDT\.br\Electronically Co-Signed By: Von Loco DO\.br\Date and Time Co-Signed: 09/12/23 19:10 EDT ED Patient Education Noteon 09-12-2023 ED Patient Education Note Cardiovascular Hypertension, Adult Hypertension is another name for high blood pressure. High blood pressure forces your heart to work harder to pump blood. This can cause problems over time. There are two numbers in a blood pressure reading. There is a top number (systolic) over a bottom number (diastolic). It is best to have a blood pressure that is below 120/80. What are the causes? The cause of this condition is not known. Some other conditions can lead to high blood pressure. What increases the risk? Some lifestyle factors can make you more likely to develop high blood pressure: ? Smoking. ? Not getting enough exercise or physical activity. ? Being overweight. ? Having too much fat, sugar, calories, or salt (sodium) in your diet. ? Drinking too much alcohol. Other risk factors include: ? Having any of these conditions: ? Heart disease. ? Diabetes. ? High cholesterol. ? Kidney disease. ? Obstructive sleep apnea. ? Having a family history of high blood pressure and high cholesterol. ? Age. The risk increases with age. ? Stress. What are the signs or symptoms? High blood pressure may not cause symptoms. Very high blood pressure (hypertensive crisis) may cause: ? Headache. ? Fast or uneven heartbeats (palpitations). ? Shortness of breath. ? Nosebleed. ? Vomiting or feeling like you may vomit (nauseous). ? Changes in how you see. ? Very bad chest pain. ? Feeling dizzy. ? Seizures. How is this treated? ? This condition is treated by making healthy lifestyle changes, such as: ? Eating healthy foods. ? Exercising more. ? Drinking less alcohol. ? Your doctor may prescribe medicine if lifestyle changes do not help enough and if: ? Your top number is above 130. ? Your bottom number is above 80. ? Your personal target blood pressure may vary. Follow these instructions at home: Eating and drinking ? If told, follow the DASH eating plan. To follow this plan: ? Fill one half of your plate at each meal with fruits and vegetables. ? Fill one fourth of your plate at each meal with whole grains. Whole grains include whole-wheat pasta, brown rice, and whole-grain bread. ? Eat or drink low-fat dairy products, such as skim milk or low-fat yogurt. ? Fill one fourth of your plate at each meal with low-fat (lean) proteins. Low-fat proteins include fish, chicken without skin, eggs, beans, and tofu. ? Avoid fatty meat, cured and processed meat, or chicken with skin. ? Avoid pre-made or processed food. ? Limit the amount of salt in your diet to less than 1,500 mg each day. ? Do not drink alcohol if: ? Your doctor tells you not to drink. ? You are , may be , or are planning to become . ? If you drink alcohol: ? Limit how much you have to: ? 0?1 drink a day for women. ? 0?2 drinks a day for men. ? Know how much alcohol is in your drink. In the [place] one drink equals one 12 oz bottle of beer (355 mL), one 5 oz glass of wine (148 mL), or one 1? oz glass of hard liquor (44 mL). Lifestyle ? Work with your doctor to stay at a healthy weight or to lose weight. Ask your doctor what the best weight is for you. ? Get at least 30 minutes of exercise that causes your heart to beat faster (aerobic exercise) most days of the week. This may include walking, swimming, or biking. ? Get at least 30 minutes of exercise that strengthens your muscles (resistance exercise) at least 3 days a week. This may include lifting weights or doing Pilates. ? Do not smoke or use any products that contain nicotine or tobacco. If you need help quitting, ask your doctor. ? Check your blood pressure at home as told by your doctor. ? Keep all follow-up visits. Medicines ? Take fezf-sxw-sjymtvj and prescription medicines only as told by your doctor. Follow directions carefully. ? Do not skip doses of blood pressure medicine. The medicine does not work as well if you skip doses. Skipping doses also puts you at risk for problems. ? Ask your doctor about side effects or reactions to medicines that you should watch for. Contact a doctor if: ? You think you are having a reaction to the medicine you are taking. ? You have headaches that keep coming back. ? You feel dizzy. ? You have swelling in your ankles. ? You have trouble with your vision. Get help right away if: ? You get a very bad headache. ? You start to feel mixed up (confused). ? You feel weak or numb. ? You feel faint. ? You have very bad pain in your: ? Chest. ? Belly (abdomen). ? You vomit more than once. ? You have trouble breathing. These symptoms may be an emergency. Get help right away. Call 911. ? Do not wait to see if the symptoms will go away. ? Do not drive yourself to the hospital. Summary ? Hypertension is another name for high blood pressure. ? High blood pressure forces your heart to work harder to pump blood. ? For m (more content not included)... [facility] ED Patient Summaryon 023 ED Patient Summary (Inserted Image. Poly ble to display) [place] [id number] Patient Discharge Instructions Person Information Name: DRISS COPE Age: 28 Years Arrival Date: 09/12/2023 17:21:17 Discharge Diagnosis: Elevated blood pressure reading; Headache Primary Care Physician: CRUZ RODRÍGUEZ MD Provider Information Primary Provider: Von Loco DO Advanced Seismic Plotter:None The exam and treatment you received in the Emergency Department were for an urgent problem and are not intended as complete care. It is important that you follow up with a doctor, nurse practitioner, or physician?s health center assistant for ongoing care. If your symptoms become worse or you do not improve as expected and you are unable to reach your usual health care provider, you should return to the Emergency Department. We are available 24 hours a day. DRISS COPE has been given the following list of patient education materials, prescriptions and follow-up instructions: Follow-up Instructions: With: Address: When: CRUZ RODRÍGUEZ [facility] [place] [address] Business (1) In 3 days 09/15/2023 Comments: Follow-up with your primary care provider in 3 to 5 days. If symptoms worsen, do not improve, or new symptoms arise please report back to emergency department for further evaluation. In the event that this physician does not participate in your insurance network, please consult with your insurance company to find a nearby participating provider. Patient Education Materials: How to Take Your Blood Pressure; Hypertension, Adult, Ysos-sm-Lwmj; General Headache Without Cause, Ztge-ai-Rsxc A MESSAGE TO ALL PATIENTS REGARDING OPIOIDS PRESCRIPTION OPIOIDS: WHAT YOU NEED TO KNOW Prescription opioids can be used to help relieve esfireyh-hc-kdjyha pain and are often prescribed following a surgery or injury, or for certain health conditions. These medications can be an important part of the treatment but also come with serious risks. It is important to work with your healthcare provider to make sure you are getting the safest, most effective care. WHAT ARE THE RISKS AND SIDE EFFECTS OF OPIOID USE? Prescription opioids carry serious risks of addiction and overdose, especially with prolonged use. An opioid overdose, often marked by slowed breathing, can cause sudden . The use of prescription opioids can have a number of side effects as well, even when taken as directed: ? Tolerance?meaning you might need to take more of the medication for the same pain relief ? Physical dependence?meaning you have symptoms of withdrawal when a medication is stopped ? Increased sensitivity to pain ? Constipation ? Nausea, vomiting, and dry mouth ? Sleepiness and dizziness ? Confusion ? Depression ? Low levels of testosterone that can result in lower sex drive, energy, and strength ? Itching and sweating RISKS ARE GREATER WITH: ? History of drug misuse, substance use disorder, or overdose ? Mental health conditions (such as depression or anxiety) ? Sleep apnea ? Older age (65 years and older) ? Avoid alcohol while taking prescription opioids. Also, unless specifically advised by your health care provider, medications to avoid include: ? Benzodiazepines (such as Xanax or Valium) ? Muscle relaxants (such as Soma or Flexeril) ? Hypnotics (such as Ambien or Lunesta) ? Other prescription opioids KNOW YOUR OPTIONS Talk to your health care provider about ways to manage your pain that don?t involve prescription opioids. Some of these options may actually work better and have fewer risks and side effects. Options may include: ? Pain relievers such as acetaminophen, ibuprofen, and naproxen ? Some medication that are also used for depression or seizures ? Physical therapy and exercise ? Cognitive behavioral therapy, a psychological, goal-directed approach, in which patients learn how to modify physical, behavioral, and emotional triggers of pain and stress. IF YOU ARE PRESCRIBED OPIOIDS FOR PAIN: ? Never take opioids in greater amounts or more often than prescribed. ? Follow up with your primary health care provider. o Work together to create a plan on how to manage your pain. o Talk about ways to help manage your pain that don?t involve prescription opioids. o Talk about any and all concerns and side effects. ? Help prevent misuse and abuse o Never sell or share prescription opioids. o Never use another person?s prescription opioids. ? Store prescription opioids in a secure place and out of reach of others (this may include visitors, children, friends, and family). ? Safely dispose of unused prescription opioids: Find your community drug take-back program or your pharmacy mail-back program, or flush them down the toilet, following guidance from the Food and Drug Administration (www.fda.gov/Drugs/Reso (more content not included)... [facility] Cytology Cervical or vaginal smear or scraping [facility] 08-15-2023 [facility] DRISS COPE ([id number]) 1995 F Date Time Provider Department 08/02/23 CHARLENE RODRIGUEZ [facility] During your visit today, we recorded the following information about you: Lesley Lynn 08/02/2023 10:06 AM Signed Pt calling stating that Dr. Rodriguez prescribed Orilissa 150 mg on 07/16. Pt states pharmacy needed a Authorization sent to the pharmacy. Says the pharmacy sent it but still has not heard anything and would like to follow up and see when it is going to be authorized. Pt said she is at work, and if you need to leave a message you are able too. Please advise. Thanks. Christa Suárez RN 08/02/2023 12:02 PM Signed PA for orilissa completed via Cover MyMeds. Driss Cope (Morales: [id number]) - [id number] Orilissa 150MG tablets Status: Sent To Plan Created: August 02, 2023 Sent: August 02, 2023 DIALLO Coffey Ashley 08/03/2023 10:22 AM Signed Christa Suárez RN 08/09/2023 1:36 PM Signed Patient notified of approval via MyC message. Encounter closed. Christa Suárez RN Allergies As of Date: 08/02/2023 (No Known Allergies) Date Reviewed: 07/16/2023 Reviewed by: Zenobia Lyman RN - Fully Assessed Reason for Visit: Insurance Authorization [[id number]] Cmt: Orilissa Prescriptions as of 08/09/2023 - elagolix (ORILISSA) 150 mg tablet Take 1 tablet (150 mg) by mouth once daily. - norethindrone (AYGESTIN) 5 mg tablet Take 2 tablets by mouth once daily. - iv contrast (will be provided with radiology test) MRI Female Pelvis Inject, intravenously, once for 1 dose. No IV access, insert saline lock prior to the beginning of sedation, infusion, injection of imaging exam. Discontinue saline lock post exam. If Pt has a central line or IVAD, may access for administration according to line specific nursing protocol. Once exam is complete flush line and de-access according to line specific nursing protocol in the MR contrast administration guidelines link. - Surgical Lubricant Jelly gel For MRI Female Pelvis, MRI department to provide. Administer intra-vaginal Surgilube immediately prior the MRI procedure (total amount to patient toleranace). - cyclobenzaprine (FLEXERIL) 5 mg tablet Take 1 tablet by mouth at bedtime as needed. - metoprolol succinate ER (TOPROL XL) 25 mg 24 hr tablet - norethindrone (AYGESTIN) 5 mg tablet Take 1 tablet by mouth once daily. - FLUoxetine (PROZAC) 10 mg capsule Take 10 mg by mouth once daily. Problem List As Of Date 08/02/2023 Noted Resolved Vasovagal attack [R55] 12/08/2014 Dysmenorrhea [N94.6] 10/08/2020 Anorexia [R63.0] 05/27/2020 Anxiety [F41.9] 10/08/2020 Constipation [K59.00] 10/08/2020 Migraine [G43.909] 10/08/2020 HTN (hypertension) [I10] Encounter Status:Closed by LESLEY LYNN on 08/02/23 [facility] CNOVon 07-16-2023 CNOV Office Visit ([facility] ) DRISS COPE ([id number]) 1995 F Date Time Provider Department 07/16/23 11:30 AM CHARLENE RODRIGUEZ During your visit today, we recorded the following information about you: Blood pressure Last Period 136/90 07/08/23 Charlene Rodriguez DO 07/16/2023 12:41 PM Signed [facility] SECTION FOR MINIMALLY INVASIVE GYNECOLOGIC SURGERY OUTPATIENT VISIT DATE 07/16/2023 OUTPATIENT VISIT TYPE Follow-up visit PRIMARY CARE PHYSICIAN: Cruz Rodríguez [address] [place] [address] REFERRING PHYSICIAN: Cruz Rodríguez CHIEF COMPLAINT: No chief complaint on file. HISTORY OF PRESENT ILLNESS: Driss Cope is a pleasant 28 year old female who presents for evaluation of endometriosis, pelvic pain On daily norethindrone 10 mg - continues to have pelvic pain and bleeding. Sharp, stabbing, cramping pain Lower back and pelvic area Week prior to bleeding Pelvic floor PT - went to one session No bladder/bowel symptoms Flexeril: did not help Constipation: tried miralax Pelvic MRI: RESULT: Uterus: Size: 7.0 x 3.4 x 4.8cm Orientation: Anteverted Endometrium: Homogeneous signal intensity with no mass measuring 6 mm. Junctional zone: Maximum thickness: 7 mm, Homogeneous T2 hypointense signal Cervix: Normal Leiomyomas: None Anterior compartment: Bladder: Normal with no endometriosis Ureters: No involvement. No hydronephrosis. Vesicouterine pouch: No endometriosis Vesicovaginal septum: No endometriosis Prevesicular space: No endometriosis Middle Compartment Disease: Ovaries: - Right ovary: 2.6 x 1.5 x 3.6cm Physiologic follicles present, no endometrioma - Left ovary: 3.1 x 2.0 x 3.1 cm Physiologic follicles present, no endometrioma Fallopian tubes: No hydrosalpinx Torus uterinus (Uterine body): Normal Uterine ligaments: Unremarkable Vagina: No endometriosis Posterior compartment disease: Retrocervical Space: No evidence of endometriosis Anterior rectal wall: No rectal wall involvement Uterosacral ligament: No thickening to suggest endometriosis Rectovaginal space / septum: Normal Additional bowel lesions present? 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 History LMP: 07/08/2023 (Exact Date), Having periods Age at Menarche: 14 Age at First : 27 Age at Menopause: Business Support Specialist History Comments: Sexual Activity: Never; No partner data on record Contraception: Pill Past Obstetrical History: OB History T0 L1 SAB0 IAB0 Ectopic0 Multiple0 Live Births0 Past Medical History: PAST MEDICAL HISTORY Diagnosis Date Endometriosis HTN (hypertension) PONV (postoperative nausea and vomiting) Past Surgical History: PAST SURGICAL HISTORY Procedure Laterality Date APPENDECTOMY 2016 COLONOSCOPY COLONOSCOPY 10/25/2020 repeat 5 years PAST SURGICAL HISTORY OF 02/2019; 08/2020 laparoscopy for endometriosis Family History: FAMILY HISTORY Problem Relation Age of Onset Cancer Father Hypertension Maternal Grandfather Anesthesia Problems No Family History Blood Clots No Family History Clotting Disorder No Family History Social History: Social History Tobacco Use Smoking status: Never Smokeless tobacco: Never Substance Use Topics Alcohol use: Yes Comment: maybe a few drinks a month Drug use: No Current Outpatient Medications Medication Sig elagolix (ORILISSA) 150 mg tablet Take 1 tablet (150 mg) by mouth once daily. norethindrone (AYGESTIN) 5 mg tablet Take 2 tablets by mouth once daily. iv contrast (will be provided with radiology test) MRI Female Pelvis Inject, intravenously, once for 1 dose. No IV access, insert saline lock prior to the beginning of sedation, infusion, injection of imaging exam. Discontinue saline lock post exam. If Pt has a central line or IVAD, may access for administration according to line specific nursing protocol. Once exam is complete flush line and de-access according to line specific nursing protocol in the MR contrast administration guidelines link. Surgical Lubricant Jelly gel For MRI Female Pelvis, MRI department to provide. Administer intra-vaginal Surgilube immediately prior the MRI procedure (total amount to patient toleranace). cyclobenzaprine (FLEXERIL) 5 mg tablet Take 1 tablet by mouth at bedtime as needed. metoprolol succinate ER (TOPROL XL) 25 mg 24 hr tablet norethindrone (AYGESTIN) 5 mg tablet Take 1 tablet by mouth once daily. FLUoxetine (PROZAC) 10 mg capsule Take 10 mg by mouth once daily. (Patient not taking: Reported on 05/01/2023) No current facility-administered medications for this visit. Allergies As of Date: 07/16/2023 (No Known Allergies) Fully Assessed 07/16/2023 REVIEW OF SYSTEMS: POSITIVES IN BOLD Cons (more content not included)... [facility] Nonvisit Note - PTon 023 Nonvisit Note - PT she canceled in the reminder system on 06-18-23 for her appointment 06-19-23. [facility] PT - Otheron 06-18-2023 PT - Other [id number]#[id number] CD:127 [facility] MRI FEMALE PELVIS WO/W IVCON on 06-12-2023 MRI FEMALE PELVIS WO/W IVCON * * *Final Report* * * DATE OF EXAM: Jun 12 2023 2:47PM BRM [id number] - MRI FEMALE PELVIS WO/W IVCON / PROCEDURE REASON: Pelvic and perineal pain * * * * Physician Interpretation * * * * MRI OF THE PELVIS WITHOUT AND WITH CONTRAST (ENDOMETRIOSIS PROTOCOL) CLINICAL HISTORY: History of laparoscopy confirmed endometriosis (2020). Back/pelvic pain. Evaluate for deep infiltrative endometriosis. TECHNIQUE: Magnet: Siemens 3T Skyra scanner. Coil: Torso phased array Sequences / planes: Multisequence, multiplanar MR imaging of the pelvis was performed with and without intravenous contrast. Contrast: Contrast Media 1: IV administration of 14 ml of Dotarem Contrast Media 2: Vaginal administration of 30 ml of gel COMPARISON: MRI pelvis 05/17/2016 RESULT: Uterus: Size: 7.0 x 3.4 x 4.8cm Orientation: Anteverted Endometrium: Homogeneous signal intensity with no mass measuring 6 mm. Junctional zone: Maximum thickness: 7 mm, Homogeneous T2 hypointense signal Cervix: Normal Leiomyomas: None Anterior compartment: Bladder: Normal with no endometriosis Ureters: No involvement. No hydronephrosis. Vesicouterine pouch: No endometriosis Vesicovaginal septum: No endometriosis Prevesicular space: No endometriosis Middle Compartment Disease: Ovaries: - Right ovary: 2.6 x 1.5 x 3.6cm Physiologic follicles present, no endometrioma - Left ovary: 3.1 x 2.0 x 3.1 cm Physiologic follicles present, no endometrioma Fallopian tubes: No hydrosalpinx Torus uterinus (Uterine body): Normal Uterine ligaments: Unremarkable Vagina: No endometriosis Posterior compartment disease: Retrocervical Space: No evidence of endometriosis Anterior rectal wall: No rectal wall involvement Uterosacral ligament: No thickening to suggest endometriosis Rectovaginal space / septum: Normal Additional bowel lesions present? (Sigmoid colon/ small bowel): -No additional bowel lesions identified Additional sites of endometriosis: - No abdominal wall lesions Pelvis free fluid: None Lymph nodes: No lymph nodes enlarged by size criteria. Bones:Normal marrow signal. Localizer: No additional findings. IMPRESSION: No deep infiltrating endometriosis. 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 [facility] Nonvisit Note - PTon 023 Nonvisit Note - PT didn't show for her appointment today. [facility] Insurance Correspondenceon 0 05-14-2023 Insurance Correspondence [id number] D:127 [facility] Gladys 05-11-2023 CNPN Telephone (GYNMN) DRISS COPE ([id number]) 1995 F Date Time Provider Department 05/11/23 CHARLENE RODRIGUEZ [facility] During your visit today, we recorded the following information about you: Tawana Joanie [facility] 05/11/2023 1:21 PM Signed Reason for call: other - Vaginal bleeding Provider name: Dr Rodriguez Additional comments: patient having more vaginal bleeding and concerned she is getting worse. Recommendation: routed to nurse triage pool Christa Suárez RN 05/11/2023 4:32 PM Signed Reports vaginal bleeding, using panty liners, changing a few times a day, not severe. Biggest complaint is cramping. Has had 3 periods of bleeding recently - 04/22/2023 LMP, last a few days, 05/04-05/10 bleeding again 05/11/2023 started again today. Takes aygestin 5mg daily. She did not crop picker flexeril. Encourage to crop picker the flexeril as this will help with the cramping. Reviewed red flag bleeding symptoms that require trip to ER (soaking greater than one overnight pad per hour, chest pain, shortness of breath, fatigue, palpitations).. Advised keep appt. Gives verbal understanding. Appointments for Next 60 Days Date Time Provider Location Dept Phone 05/17/2023 1:00 PM CHARLENE RODRIGUEZ [facility] Stro [phone] Christa Suárez RN Allergies As of Date: 05/11/2023 (No Known Allergies) Date Reviewed: 05/09/2023 Reviewed by: Srinivasa Downs APRN.[facility] - Fully Assessed Reason for Visit: Vaginal Bleeding [203] Prescriptions as of 05/11/2023 - cyclobenzaprine (FLEXERIL) 5 mg tablet Take 1 tablet by mouth at bedtime as needed. - metoprolol succinate ER (TOPROL XL) 25 mg 24 hr tablet - norethindrone (AYGESTIN) 5 mg tablet Take 1 tablet by mouth once daily. - naproxen (NAPROSYN) 500 mg tablet Take 1 tablet by mouth twice daily as needed. for pain. Take with food. - FLUoxetine (PROZAC) 10 mg capsule Take 10 mg by mouth once daily. Problem List As Of Date 05/11/2023 Noted Resolved Vasovagal attack [R55] 12/08/2014 Dysmenorrhea [N94.6] 10/08/2020 Anorexia [R63.0] 05/27/2020 Anxiety [F41.9] 10/08/2020 Constipation [K59.00] 10/08/2020 Migraine [G43.909] 10/08/2020 HTN (hypertension) [I10] Encounter Status:Closed by CHRISTA WILLINGHAM on 05/11/23 [facility] Operative Reporton 3 Operative Report SURGERY DATE: 12/30/2022 TECHNICAL OPERATIONS MANAGER: None PREOPERATIVE DIAGNOSES: 1. Vaginal bleeding 2. Retained products of conception POSTOPERATIVE DIAGNOSES: 1. Vaginal bleeding 2. Retained products of conception OPERATION: Suction dilation and curettage ANESTHESIA: General URINE OUTPUT: Yellow and clear FINDINGS: Products of conception SPECIMEN: Products of conception BLOOD LOSS: 20 mL PROCEDURE: The patient was taken back to the Operating Room where she was given general anesthesia without difficulty. She was prepped and draped in normal sinus rhythm after being placed in dorsal lithotomy position. A weighted speculum was placed in the patient's vagina. The anterior lip of the cervix was identified and grasped with a single tooth tenaculum. The patient was then gently sounded to roughly 9 cm. The patient was then gently dilated using Hegar dilators. The suction curette attached to the wall was then used and products of conception were gently removed. Exploration of the patient utilizing the curettes was performed without difficulty. All instruments were then removed from the patient's vagina. The patient tolerated the procedure well. Sponge, lap and needle counts were correct x2. The patient taken to Recovery Room in stable condition. Nathan Pop D.O. stanislav Dictated: 12/30/2022 [id number] Transcribed: 01/01/2023 [facility] Comment on above: Result Comment: Elec tronically Signed By: Nathan POP DO\Date and Time Signed: 05/10/23 11:28 EDT PT - Consentson 05-10-2023 PT - Consents [id number]#1.00C D:127 [facility] Consent for Treatmenton 04-26 Consent for Treatment [id number] D:127 [facility] PT - Orderson 05-09-2023 PT - Orders [id number]#1.00 CD:127 [facility] Nonvisit Note - PTon 023 Nonvisit Note - PT Chart reviewed with eval prepped for scheduled eval. [facility] CNOVon 05-01-2023 [facility] DRISS COPE ([id number]) 1995 F Date Time Provider Department 05/01/23 10:30 AM SRINIVASA DOWNS [facility] During your visit today, we recorded the following information about you: Blood pressure Weight Height Last Period 148/64 64.9 kg 1.575 m 04/22/23 Srinivasa Downs APRN.ACCOUNT INSTALLATION SPECIALIST 05/09/2023 11:46 AM Signed Driss Cope is a 28 year old female who presents for problem visit for pain HPI: Pain is week before period and week of period. Worse on her period for every day she's bleeding Urinary - No symptoms GI - Always constipated. No meds [place] - painful always Pain is on left side and goes to the back. Whole lower back. Sometimes on right but not very often. No concerns No falls, car accidents, scoliosis. No trauma history Endo. 2 lap - 2020 - pain improved after surgery In the past Aygestin had helped No Pelvic floor physical therapy. Dr Rodriguez recommend but hasn't been able to go. Tore with delivery but doesn't think it was bad. Here with a friend and her baby. 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 History LMP: 03/26/2023 (Approximate), Having periods Age at Menarche: Age at First : Age at Menopause: Business Support Specialist History Comments: Sexual Activity: Never; No partner data on record Contraception: Pill PAST MEDICAL HISTORY Diagnosis Date - HTN (hypertension) - PONV (postoperative nausea and vomiting) PAST SURGICAL HISTORY Procedure Laterality Date - APPENDECTOMY 2015 - COLONOSCOPY - COLONOSCOPY 10/25/2020 repeat 5 years - PAST SURGICAL HISTORY OF 02/2019; 08/2020 laparoscopy for endometriosis FAMILY HISTORY Problem Relation Age of Onset - Cancer Father - Hypertension Maternal Grandfather - Anesthesia Problems No Family History - Blood Clots No Family History - Clotting Disorder No Family History Social History Tobacco Use - Smoking status: Never - Smokeless tobacco: Never Substance Use Topics - Alcohol use: Yes Comment: maybe a few drinks a month - Drug use: No Current Outpatient Medications Medication Sig - metoprolol succinate ER (TOPROL XL) 25 mg 24 hr tablet - norethindrone (AYGESTIN) 5 mg tablet Take 1 tablet by mouth once daily. - naproxen (NAPROSYN) 500 mg tablet Take 1 tablet by mouth twice daily as needed. for pain. Take with food. - FLUoxetine (PROZAC) 10 mg capsule Take 10 mg by mouth once daily. No current facility-administered medications for this visit. Allergies As of Date: 05/01/2023 (No Known Allergies) Fully Assessed 04/11/2023 REVIEW OF SYSTEMS See HPI EXAM: BP 148/64 Ht 5' 2 (1.58m) Wt 143 lb (64.9kg) LMP 04/22/2023 BMI 26.15 kg/(m2). GENERAL: pleasant, female in no apparent distress HEENT: Normocephalic and atraumatic NECK: Supple and full range of motion DERMATOLOGY: BREAST: deferred CHEST: Normal inspiratory effort MWDPAINEXAM Spine tenderness negative SI joint nontender Pubic symphysis tenderness negative Pubic bones negative Abdominal tenderness left side Abdominal myofacial trigger points - equivocal Diastasis recti noted on exam Vaginal Vestibular tenderness negative Rectal tenderness negative, stool noted on exam Bladder base tenderness negative Uterus nontender, mobile Pelvic Floor Musculature - tender and high tone bilaterally RV exam - deferred NEURO: alert and oriented x3,exam grossly non-focal EXTREMITIES: normal ASSESSMENT AND PLAN: Encounter Diagnosis ICD-10-CM 1. Chronic pelvic pain in female R10.2 cyclobenzaprine (FLEXERIL) 5 mg tablet G89.29 CONSULT TO PHYSICAL THERAPY 2. Constipation, unspecified constipation type K59.00 CONSULT TO PHYSICAL THERAPY 3. High-tone pelvic floor dysfunction N94.89 CONSULT TO PHYSICAL THERAPY 4. Diastasis of rectus abdominis M62.08 CONSULT TO PHYSICAL THERAPY 5. Dysmenorrhea N94.6 cyclobenzaprine (FLEXERIL) 5 mg tablet CONSULT TO PHYSICAL THERAPY 6. Other specified dyspareunia N94.19 CONSULT TO PHYSICAL THERAPY Pelvic floor physical therapy - or can go locally [facility] Trial flexeril at bedtime Can consider Baclofen suppositories Continue Norethindrone - can take up to 3 months for it to stop periods, take at same time every day Relaxation techniques Srinivasa Downs APRN.CNP Medical Decision Making: Problems: Moderate: New problem with uncertain prognosis Data: Unique source(s) for external note(s) reviewed: 1 Unique test result(s) reviewed: 1 Risk: Moderate: Drug management Medical Decision Making Level: 4 - Moderate Srinivasa Downs APRN.CNP 05/01/2023 11:49 AM Addendum Plan Pelvic floor physical therapy - or can go locally [facility] Trial flexeril at bedtime Can consider Baclofen suppositories - let me know if you want to trial after you go to PT Contin (more content not included)... [facility] CNOVon 04-11-2023 CNOV Office Visit (GY[facility] ) DRISS CPOE ([id number]) 1995 F Date Time Provider Department 04/11/23 11:00 AM CHARLENE RODRIGUEZ During your visit today, we recorded the following information about you: Blood pressure Last Period 123/84 03/26/23 Charlene Rodriguez DO 04/11/2023 8:18 PM Signed [facility] SECTION FOR MINIMALLY INVASIVE GYNECOLOGIC SURGERY OUTPATIENT VISIT DATE 04/11/2023 OUTPATIENT VISIT TYPE NEW PRIMARY CARE PHYSICIAN: Cruz Rodríguez [address] [place] [address] REFERRING PHYSICIAN: Self Patient is a former [facility] patient with confirmed endometriosis. CHIEF COMPLAINT: Menstrual Problem HISTORY OF PRESENT ILLNESS: Driss Cope is a pleasant 28 year old female who presents for evaluation of endometriosis. 2020 - diagnostic laparoscopy, confirmed endometriosis at [facility] No issues getting : nov 30, 2022 - no complications - but had heavy bleeding and had dANDC 12/30/2022 due to retained POC Since january, she has had pain with menses - feels like endometriosis. No current contraception. Not . 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 LMP: 03/26/2023 (Approximate), Having periods Age at Menarche: Age at First : Age at Menopause: Business Support Specialist History Comments: Sexual Activity: Never; No partner data on record Contraception: Pill Past Obstetrical History: OB History T0 L0 SAB0 IAB0 Ectopic0 Multiple0 Live Births0 Past Medical History: PAST MEDICAL HISTORY Diagnosis Date HTN (hypertension) PONV (postoperative nausea and vomiting) Past Surgical History: PAST SURGICAL HISTORY Procedure Laterality Date APPENDECTOMY 2016 COLONOSCOPY COLONOSCOPY 10/25/2020 repeat 5 years PAST SURGICAL HISTORY OF 02/2019; 08/2020 laparoscopy for endometriosis Family History: FAMILY HISTORY Problem Relation Age of Onset Cancer Father Hypertension Maternal Grandfather Anesthesia Problems No Family History Blood Clots No Family History Clotting Disorder No Family History Social History: Social History Tobacco Use Smoking status: Never Smokeless tobacco: Never Substance Use Topics Alcohol use: Yes Comment: maybe a few drinks a month Drug use: No Current Outpatient Medications Medication Sig metoprolol succinate ER (TOPROL XL) 25 mg 24 hr tablet norethindrone (AYGESTIN) 5 mg tablet Take 1 tablet by mouth once daily. naproxen (NAPROSYN) 500 mg tablet Take 1 tablet by mouth twice daily as needed. for pain. Take with food. FLUoxetine (PROZAC) 10 mg capsule Take 10 mg by mouth once daily. No current facility-administered medications for this visit. Allergies As of Date: 04/11/2023 (No Known Allergies) Fully Assessed 04/11/2023 REVIEW OF SYSTEMS: POSITIVES IN BOLD Constitutional: Denies fever or chills GI: Denies abdominal pain, nausea, vomiting, bloody stools or diarrhea : Denies dysuria Psychiatric: Denies depression or anxiety PHYSICAL EXAMINATION: Vital Signs: 04/11/23 1111 BP: 123/84 There is no height or weight on file to calculate BMI. General appearance: Well appearing, alert, in no acute distress, well-hydrated, well nourished. Skin: Skin color, texture, turgor normal, no suspicious rashes or lesions IMPRESSION: Ms. Cope is a 28 year old female who presents today with endometriosis Endometriosis: reviewed history, etiology, diagnosis and management options. Patient did well on norethindrone. Rx'd norethindrone 5 mg daily. Rtc in 3 months. Written and verbal health teaching given to patient, patient verbalizes understanding and agrees with treatment plan. DO Alena Johnson 04/25/2023 11:41 AM Signed Pt calling because still having terribly painful periods. Had to leave work. Please call [phone] Referring Provider: SELF [[id number]] Allergies As of Date: 04/11/2023 (No Known Allergies) Date Reviewed: 04/11/2023 Reviewed by: Zenobia Lyman RN - Fully Assessed Reason for Visit: Menstrual Problem [67] Primary Visit Diagnosis:Pelvic pain in female [R10.2] Other Visit Diagnosis:Endometriosis [N80.9] Order(s):norethindrone (AYGESTIN) 5 mg tabletTake 1 tablet by mouth once daily.Disp: 30 tabletRfl: 11 naproxen (NAPROSYN) 500 mg tabletTake 1 tablet by mouth twice daily as needed. for pain. Take with food.Disp: 30 tabletRfl: 3 CONSULT TO PHYSICAL THERAPY [9826] Order #: [id number]: 1 FUTURE Prescriptions as of 04/25/2023 - metoprolol succinate ER (TOPROL XL) 25 mg 24 hr tablet - norethindrone (AYGESTIN) 5 mg tablet Take 1 tablet (more content not included)... Normal [facility] Metabolic Pane siomara 03-23-2023 Albumin [Mass/Vol] 4.4 g/dL Normal 3.5-5.7 [facility] Comment on above: Order Comment: Reaso n for Exam Hypertension Reason for Exam Anemia Performed By: #### M G, CMP, CBC #### [facility] [address] [place] [id number] [facility] Albumin/Globulin [Mass ratio] 1.4 {ratio} Normal [facility] Comment on above: Order Comment: Reaso n for Exam Hypertension Reason for Exam Anemia Performed By: #### M G, CMP, CBC #### [facility] [address] [place] [address] [place] ALP [Catalytic activity/Vol] 104 U/L Normal 34-104 [facility] Comment on above: Order Comment: Reaso n for Exam Hypertension Reason for Exam Anemia Performed By: #### M G, CMP, CBC #### [facility] [address] [place] [address] [place] ALT [Catalytic activity/Vol] 32 U/L Normal 7-52 [facility] Comment on above: Order Comment: Reaso n for Exam Hypertension Reason for Exam Anemia Performed By: #### M G, CMP, CBC #### [facility] [address] [place] [address] [place] Anion gap [Moles/Vol] 11.2 mmol/L Normal 6.0-15.0 [facility] Comment on above: Order Comment: Reaso n for Exam Hypertension Reason for Exam Anemia Performed By: #### M G, CMP, CBC #### [facility] [address] [place] [id number] [facility] AST [Catalytic activity/Vol] 23 U/L Normal 13-39 [facility] Comment on above: Order Comment: Reaso n for Exam Hypertension Reason for Exam Anemia Performed By: #### M G, CMP, CBC #### [facility] [address] [place] [id number] [place] Bilirubin [Mass/Vol] 0.6 mg/dL Normal 0.3-1.0 [facility] Comment on above: Order Comment: Reaso n for Exam Hypertension Reason for Exam Anemia Performed By: #### M G, CMP, CBC #### [facility] [address] Calcium [Mass/Vol] 9.1 mg/dL Normal 8.6-10.3 [facility] Comment on above: Order Comment: Reaso n for Exam Hypertension Reason for Exam Anemia Performed By: #### M G, CMP, CBC #### [facility] [address] [place] [address] [place] Chloride [Moles/Vol] 103 mmol/L Normal 98-107 [facility] Comment on above: Order Comment: Reaso n for Exam Hypertension Reason for Exam Anemia Performed By: #### M G, CMP, CBC #### [facility] [address] [place] [address] [place] CO2 [Moles/Vol] 26.9 mmol/L Normal 21.0-31.0 [facility] Comment on above: Order Comment: Reaso n for Exam Hypertension Reason for Exam Anemia Performed By: #### M G, CMP, CBC #### [facility] [address] [place] [id number] [place] Creatinine [Mass/Vol] 0.87 mg/dL Normal 0.60-1.20 [facility] Comment on above: Order Comment: Reaso n for Exam Hypertension Reason for Exam Anemia Performed By: #### M G, CMP, CBC #### [facility] [address] [place] [id number] [place] GFR/1.73 sq M.predicted MDRD (S/P/Bld) [Vol rate/Area] mL/min/{1.73_m2} [facility] Comment on above: Order Comment: Reaso n for Exam Hypertension Reason for Exam Anemia Performed By: #### M G, CMP, CBC #### [facility] [address] [place] [id number] [place] Globulin (S) [Mass/Vol] 3.1 g/dL [facility] Comment on above: Order Comment: Reaso n for Exam Hypertension Reason for Exam Anemia Performed By: #### M G, CMP, CBC #### [facility] [address] Glucose [Mass/Vol] 100 mg/dL Normal 70-100 [facility] Comment on above: Order Comment: Reaso n for Exam Hypertension Reason for Exam Anemia Result Comment: [facility] Glucose Reference Range is dependent on time and content of last meal. Glucose of more than 200 mg/dL in a nonstressed, ambulatory subject supports the diagnosis of Diabetes Mellitus. ADA recommended reference range Performed By: #### M G, CMP, CBC #### [facility] [address] [place] [address] [place] Potassium [Moles/Vol] 4.1 mmol/L Normal 3.5-5.1 [facility] Comment on above: Order Comment: Reaso n for Exam Hypertension Reason for Exam Anemia Performed By: #### M G, CMP, CBC #### [facility] [address] [place] [id number] [place] Protein [Mass/Vol] 7.5 g/dL Normal 6.4-8.9 [facility] Comment on above: Order Comment: Reaso n for Exam Hypertension Reason for Exam Anemia Performed By: #### M G, CMP, CBC #### [facility] [address] [place] [id number] [place] Sodium [Moles/Vol] 137 mmol/L Normal 136-145 [facility] Comment on above: Order Comment: Reaso n for Exam Hypertension Reason for Exam Anemia Performed By: #### M G, CMP, CBC #### [facility] [address] [place] [id number] [facility] Urea nitrogen [Mass/Vol] 14 mg/dL Normal 7-25 [facility] Comment on above: Order Comment: Reaso n for Exam Hypertension Reason for Exam Anemia Performed By: #### M G, CMP, CBC #### [facility] [address] [place] [address] [place] Ferritinon 03-23-2023 Ferritin [Mass/Vol] 2.8 ng/mL Low 11.0-306.8 [facility] Comment on above: Order Comment: Reaso n for Exam Hypertension Reason for Exam Anemia Performed By: #### M G, CMP, CBC #### [facility] [address] [place] [address] [place] Iron and TIBC Profileon 02-25 % Iron Saturation 3.9 % Low 20-50 [facility] Comment on above: Order Comment: Reaso n for Exam Hypertension Reason for Exam Anemia Performed By: #### M G, CMP, CBC #### [facility] [address] [place] [id number] [facility] Iron [Mass/Vol] 21 ug/dL Low 50-212 [facility] Comment on above: Order Comment: Reaso n for Exam Hypertension Reason for Exam Anemia Performed By: #### M G, CMP, CBC #### [facility] [address] [place] [address] [facility] Total Iron Binding Capacity 538 ug/dL High 255-450 [facility] Comment on above: Order Comment: Reaso n for Exam Hypertension Reason for Exam Anemia Performed By: #### M G, CMP, CBC #### [facility] [address] [place] [id number] [place] Transferrin [Mass/Vol] 384 mg/dL High 203-362 [facility] Comment on above: Order Comment: Reaso n for Exam Hypertension Reason for Exam Anemia Performed By: #### M G, CMP, CBC #### [facility] [address] [place] [address] [place] Magnesiumon 03-23-2023 Magnesium [Mass/Vol] 1.9 mg/dL Normal 1.9-2.7 [facility] Comment on above: Order Comment: Reaso n for Exam Hypertension Reason for Exam Anemia Performed By: #### M G, CMP, CBC #### [facility] [address] Scan and CBCon 03-23-2023 Anisocytosis Ql (Bld) Slight Normal [facility] Comment on above: Order Comment: Reaso n for Exam Hypertension;Anemia Performed By: #### M G, CMP, CBC #### [facility] [address] [place] [address] [place] Basophils (Bld) [#/Vol] 0.1 10*3/uL Normal 0.0-0.2 [facility] Comment on above: Order Comment: Reaso n for Exam Hypertension;Anemia Performed By: #### M G, CMP, CBC #### [facility] [address] Basophils/100 WBC (Bld) 1.3 % Normal . [facility] Comment on above: Order Comment: Reaso n for Exam Hypertension;Anemia Performed By: #### M G, CMP, CBC #### [facility] [address] Eosinophils (Bld) [#/Vol] 0.1 10*3/uL Normal 0.0-0.45 [facility] Comment on above: Order Comment: Reaso n for Exam Hypertension;Anemia Performed By: #### M G, CMP, CBC #### [facility] [address] [place] [address] [place] Eosinophils/100 WBC (Bld) 1.3 % Normal . [facility] Comment on above: Order Comment: Reaso n for Exam Hypertension;Anemia Performed By: #### M G, CMP, CBC #### [facility] [address] Erythrocyte distribution width (RBC) [Ratio] 16.1 % High 11.9-15.3 [facility] Comment on above: Order Comment: Reaso n for Exam Hypertension;Anemia Performed By: #### M G, CMP, CBC #### [facility] [address] Hematocrit (Bld) [Volume fraction] 32.9 % Low 34.0-46.4 [facility] Comment on above: Order Comment: Reaso n for Exam Hypertension;Anemia Performed By: #### M G, CMP, CBC #### [address] Hemoglobin (Bld) [Mass/Vol] 10.1 g/dL Low 11.8-15.4 [facility] Comment on above: Order Comment: Reaso n for Exam Hypertension;Anemia Performed By: #### M G, CMP, CBC #### [address] Lymphocytes (Bld) [#/Vol] 3.3 10*3/uL Normal 1.00-4.8 [facility] Comment on above: Order Comment: Reaso n for Exam Hypertension;Anemia Performed By: #### M G, CMP, CBC #### [address] Lymphocytes/100 WBC (Bld) 41.6 % Normal . [facility] Comment on above: Order Comment: Reaso n for Exam Hypertension;Anemia Performed By: #### M G, CMP, CBC #### [address] MCH (RBC) [Entitic mass] 21.2 pg Low 24.7-34.3 [facility] Comment on above: Order Comment: Reaso n for Exam Hypertension;Anemia Performed By: #### M G, CMP, CBC #### [facility] [address] [place] [address] MCV (RBC) [Entitic vol] 69.2 fL Low 80-100 [facility] Comment on above: Order Comment: Reaso n for Exam Hypertension;Anemia Performed By: #### M G, CMP, CBC #### [facility] [address] [place] [address] Mean Corpuscular HGB Conc 30.6 g/dL Low 32.0-35.0 [facility] Comment on above: Order Comment: Reaso n for Exam Hypertension;Anemia Performed By: #### M G, CMP, CBC #### [address] [place] [address] [place] Microcytosis Moderate Normal [facility] Comment on above: Order Comment: Reaso n for Exam Hypertension;Anemia Performed By: #### M G, CMP, CBC #### [facility] [address] Monocytes (Bld) [#/Vol] 0.7 10*3/uL Normal 0.0-0.8 [facility] Comment on above: Order Comment: Reaso n for Exam Hypertension;Anemia Performed By: #### M G, CMP, CBC #### [facility] [address] [place] [address] Monocytes/100 WBC (Bld) 8.2 % Normal . [facility] Comment on above: Order Comment: Reaso n for Exam Hypertension;Anemia Performed By: #### M G, CMP, CBC #### [facility] [address] [place] [address] [place] Neutrophils (Bld) [#/Vol] 3.8 10*3/uL Normal 1.8-7.7 [facility] Comment on above: Order Comment: Reaso n for Exam Hypertension;Anemia Performed By: #### M G, CMP, CBC #### [facility] [address] [place] [address] Neutrophils/100 WBC (Bld) 47.6 % Normal . [facility] Comment on above: Order Comment: Reaso n for Exam Hypertension;Anemia Performed By: #### M G, CMP, CBC #### [facility] [address] [place] [address] [place] NRBC% 0.1 /100{WBC} Normal 0-0.5 [facility] Comment on above: Order Comment: Reaso n for Exam Hypertension;Anemia Performed By: #### M G, CMP, CBC #### [facility] [address] [place] [address] [place] Platelet Estimate Normal Normal Normal [facility] Comment on above: Order Comment: Reaso n for Exam Hypertension;Anemia Result Comment: PERF ORMED BY: [place] [address] PATHOLOGIST DOOR MANAGER JESUS JIN M.D. Performed By: #### M G, CMP, CBC #### [address] Platelet mean volume (Bld) [Entitic vol] 8.2 fL Normal 6.3-10.7 [facility] Comment on above: Order Comment: Reaso n for Exam Hypertension;Anemia Performed By: #### M G, CMP, CBC #### [address] Platelets (Bld) [#/Vol] 393 10*3/uL Normal 150-450 [facility] Comment on above: Order Comment: Reaso n for Exam Hypertension;Anemia Performed By: #### M G, CMP, CBC #### [address] RBC (Bld) [#/Vol] 4.75 10*6/uL Normal 3.60-5.00 [facility] Comment on above: Order Comment: Reaso n for Exam Hypertension;Anemia Performed By: #### M G, CMP, CBC #### [address] WBC (Bld) [#/Vol] 8.0 10*3/uL Normal 3.8-11.6 [facility] Comment on above: Order Comment: Reaso n for Exam Hypertension;Anemia Performed By: #### M G, CMP, CBC #### [address] Thyroid Stimulating Hormoneo n 03-23-2023 TSH Qn 1.24 m[IU]/L Normal 0.45-5.33 [facility] Comment on above: Order Comment: Reaso n for Exam Hypertension Reason for Exam Anemia Performed By: #### M G, CMP, CBC #### [address] Vitamin B12on 03-23-2023 Cobalamin (Vitamin B12) [Mass/Vol] 238 pg/mL Normal 180-914 [facility] Comment on above: Order Comment: Reaso n for Exam Hypertension Reason for Exam Anemia Performed By: #### M G, CMP, CBC #### [facility] [address] [place] [address] [facility] Vitamin D 25 Hydroxy Totalon 03-23-2023 Vitamin D 25 Hydroxy Total 19.2 ng/mL Low 30-100 [facility] Comment on above: Order Comment: Reaso n for Exam Hypertension Reason for Exam Anemia Result Comment: KIRSTIE MIN D STATUS 25(OH)VITAMIN D RANGE (ng/mL) Deficient <20 Insufficient 20 to <30 Sufficient 30 to 100 Reference: Aaron MF,Lee STEWART, Gloria USH, et al. Evaluation,treatment, and prevention of vitamin D deficiency; an Endocrine Society clinical practice guideline. JCEM. 2010; 96(7):1911-30. PERFORMED BY: [place] [id number] PATHOLOGIST DOOR MANAGER JESUS JIN M.D. Performed By: #### M G, CMP, CBC #### [facility] [address] [id number] [facility] Coding Summary.on 02-03-2023 Coding Summary. [id number] Gh0 bWw+PGhlYWQ+CA4NOWGfI18 mhAZwuY4bV5FWEQdDPkjnGA FVCGiSUtAjloRvMQ9tcJBjC XJu IC8+PI5aLXOvRiauhTBsp5H 5jWT2Q02emm3nBKxjpJA5CM IyGlAkxdtfy8vvpFu8YLqgT mluOyBt IYGisZ70DMB8pY34Cm18fBX jqXYmy3zluZu9UiTpPWDdMZ U5qOenLRsno4PsBBOqB56ka UBgw6K7 NQViuUihuUMfYzEfeFW0rI2 bDLftergxk0ofrsykSlj0at 73dZYvj8S7cBT0O7JwqbJ6X GJvbGQg McwomLSKlF7nhmhtm8qhatn aNvLdZPDwZWj1JWa1YXXdfE azJoBsBM46HYH3OKIkdoPrQ 2FsLWFs nWebJiW9x8U1Si5WW1MWDgd bH9JHGUBXYHkpxNY+PC90cj 56M4FxVeyfMyy3NIQiJST9m LN0aY9e UXCuBFtbj7Q1rTI5J5JpfuY zxw5nd9ueNECeGUvlZ47bgB Pcj0K5MZIfsKC9GXDzdFzsL iBzaG93 Oyc+BVEkwDjdq1QiVsupf3i np0qktUh3LsgaQVOwwuYkoD tnXSG0t1NiXi9nAWAjcBW1m RJ6wU6v QkVsQkJ6ZVpiH531SzJmmYK xMcphN76oS9YvmYS+PHRyPj z8HTFujVgbZH2tA6YiQCNsa mctbGVm hArpDI4kEGRfdwxjEZRbxU3 oRIEcG3c6TuTsStP8OHlcO5 JwROMfgcrjFu68oJ5wVuJyP kG7QBad D2ZobfY8MOVneLOkXYxhPPB 5P32tz8K7NHXxYGVfWCM3uC T4rF4crXrivetglIAshWhjw mVydGlj VVynBYtyJ170ISCvvXfoShF vZGluZyBEYXRlOiAgMDMvMT EvMjAyMzwvdGQ+BLEmTPH7w WxlPSAn cEJjLOhbYb9iaYmtnHewTB6 mIWDufsaiRFVcsO7hPWYpvD SseOpeNF3fRNWsjyukf679Q iAxMHB0 GZMnuTJrF1McxL3jUcQhFYY cLOUrW1QhfEOlNJbxR643WU xzQbL3WMQjqrCuA5OnDERtw WduOiB0 u4Z6Hi5Mc8IryzscV4DlnJR xLhGfAmhkBGc3F5TzUrovpN I+ZT84OVEeEP31VJc0QKO0i WxlPSdi CUNyV8QpwU4eVkNvOWUoOVN kOyc+PHRhYmxlIHdpZHRoPS zkKIRzQdHmpPjqGG3yNm9uQ GVyLWNv mNdrrYWnEaYwc2gaCHJlXGk fAE4kkWkuR4EonVE8UZZiq8 n8Ac16P19hU7QqdOA+PGNvb CC9bBB7 nE1aQiWdQvP9YEalB837JfL vhPIyFppmn1igg9chyZs2Vz O7WHIbtbIoxUtkXSL4y5SoG e50K65s IHdpZHRoPSIxNSUiIHZhbGl ucc5oeU4gHk0+SXIdfBC8iP N6eG8jCoSsCiM6DZcsR776N nRvcCIv Bzanp1yty3csmEd7BsGlBAQ egoLkjNfbIFD1h6EfXu01T2 ThwPgrm1MoAtj0vm77mBBhy 8H2vMF9 M0XrVHDmjqgycEUezKmrSB2 kTLWnoxpgADGstQ5uYEOwD2 c2IvOjTiP6XMftK2KnuwJ4I GJvbGQg OXRvrOMXlN5hsqlvk8tvxbt sCvXmYXMaAVo3XZu0MUJkkY cwKsQuZOV8ShT9DNQ2bZJda P3mmZwt ogtvuT5jAzv+ZQP2fMLxnKG GUO0zTqdclYE+SGEhXSZ1zU jjOWszVHBvuQ1mHGHrE4q8N iAwLjA1 QYcaU8FtrfC4OFPpvGGzAPK lxJRCzL2nwpckw0obkgkxTs JqTBMsMJo4BQg2WSEwaOhuZ iBsZWZ0 VcN0NOV3cEUdwE6xzTfwohz dzI0uXao+HebecRvpSDQ0MP a8L9ZxMeu3THOgaVviRY7gj GFkZGlu Ch7laRmjdCwpKC2hHVPfzol dc299VbYfb9hjWLQwxNLyML vhCAT4U52fm0P2NABmWTNuL PA2eSM8 eF9jqCptuwxtfQNnjJvlxpB gtCmuZBdbYAicA855UXFksP bgSkSfAJk0R0QgMrq1EYIwa GvqYZ1b rCNaPDnbSj4jwHblfIbfLO7 nFESzidmog445HyRzr0lxHK HbmTFdWIgoINA2L72ry9P9X CMwMDAw MHQ8pOJ6sY3adQlorzmypCA mdDsgdmVydGljYWwtYWxpZ2 81QZIakBrkObEtwHd0O0ZaN uz3XPLs rGffAV8xhFEoIVgrCw0qmVr frZihMN1xAHExzqhth661Pr Llt0npRTJsaICpKPvkLMY3G 58ht4H5 HWToANEfRHH8lJU2vG6fmCu nbjogbGVmdDsgdmVydGljYW joIZlcY916GVIxdLabMgDni GllbnQg JZheMRz7C3RdReybzSG+PC9 2RXJxKK63cZSgmURcz9bgzI v4HyXzBFQrWHH3sKzgSHwkv 3JkZXIt J45mxUDbz0V7MHZhiQqkhYC oLgVurHH7kF0qMDclruyqf4 sgvlxmIbtjq7ibyf27tQ95U 29sIHdp ZHRoPSIzMCUiIHZhbGlnbj0 gtH7iYr4+DHBmrCR9dUQ2bD 8iOPEjTaP9EWknN839NwOet CIvPjxj l3usk0mjpEr6WvH4JMMwurA ctOqkIDI4w8HqMz09F89dMI dpZHRoPSIyMCUiIHZhbGlnb z2bfT2x Ii8+NJVhqQM1hCH4yT2hTgE hJhG6KZzzH980ItZpjHPrJe zjA19mE9RbaNT+ASIhUur6K CBzdHls UC7hlKVzOKuiPz7iRDY5YoQ vJuFvRTspJ0SlOXGftayjgw rlmXA4DLBhOKMuoG54Uk0be DogMTBw zTTDyY9cakuuo5qqucigGlO pHWNhAAf7WBl9QUOkeBtxIc VlKCW0NtD2IWA4wZSylS8xi Glnbjog eH7cH4SdVWOpnuneEc58jG8 oMrVeSwU1PHdiYql+Q0FOVE nPBLfuTCoNDAzSGS34T9SmO yn6JBRq oJjlBN6eqEAmUOwwHg6nuYf hyGqgYI1iCCDatjuqBXFxfC 7mGQJumVOzhLehNR7lMKAmz aqhx464 WuEyKTN3UFAkcJUhO6NfbR7 jKeIaFPPdFZIuZ4LwuMRlQE imJ675LKcfWfR4ENLevaQmN 2FsLWFs iMnrWoL3s7J7Dk9gDE9kLV5 tJYq6ZI77BF35hIWou3I6nH S7I3VxREKkyuuupdkpqBK5J DAuMDUw qH14dNNsZTvtPx5sx1C7y65 3SNQzLDHrtI24Va4kwTqoZD XckKWMaM1eysczk0qdduztM zAwMDAw KSd0QNb9ARGbwEjyMlDkETI 0GcI6DBP3fTGmuU4xkRwtyt wqtR4zHrq+XopeXFXdwbH4O 8UsLwh7 ZSXkzZquOM6hzHRbFMxqLv0 hzSjugGrkBF8oLLXrpjiwVK GllZ0gREZnbDHvwXqdUI3jJ TBpbjtm k774LzIiPMI7WHCcmVYtV0S viY3jLjBoKVRhLUKaZ9MfqX BdRJgxV491TKrvAfH2PHUku uLiF7Fy FLBubJlxAzQ9r4H1Ge7ZVI4 wyYH5Z3KhEre8OYYuoCorKR 8zfOMmEQqjMm7ikWflgIfjQ U5qPHLw asbzOSDmxD5eJVZatCJsmFw tSK0qSDHikujuw120NbSxAA I3WBLbpHNsS7OcqY3sLmFbD DAwMDAw V2IgbOEgTVokC176EZzaDiG 7VFTvuaYvJ8JoIWGdmApxRt Z2u9W7Be5MeIJqN8QiW7v3E 3RkPjwv dHI+UU06UFLjQG19hIGzyOP gx6tgbGk0TyLnBLNlBZB2tS mwSXydm5DeWFGtI00cwRScr 6J6WQZc uDovzJKlAuWhwWG0mC9iSEs yazunz8bcizuyCytaa7gkbl 15xC96X97yJBpfPUGeBHEcI CUiIHZh nVnxka8trS9wXa3+PGNvbCB 2wBY0fC3gOuWsNyK4UHduA0 81JmAouYIxTfuge4vqk3wsk Pl9NyGm LJCtjeShoKhzMGJ1y7VvEq3 7K43kPBpbJCYhRNXpXTImXL YygEesnt0qaV9wAo5+PC9jb 2dblw33 kH14wHD+VQSnCLS9qLbxJHd vKKNprM5nDMczOjL6HPGeNe UubR05hYYgURiwWz8ocOroa ViwHS1z GVQayklyv309DgFpu0twNKV jtRFnWLpsUZH1K72pe8C8AV VyLYQgKQY2bVN5qG4ibLlql jogbGVm nJbmayWtoGsdEMgvRAtrJ15 0SOModZerQpHzdFUfE9bsey HVXI8rRitkuEM+WGGjPDZ7o WxlPSdw KFZmgM8kGBHmI8d8SzUqLfJ 8OAwwS9MaqyN9PRQbbNXqOO ZooEGKiQ3olhtqx5utatiaL zAwMDAw THo4TJe0JSDgeJljCbMoQRQ 0RnP3CAR8cLIkjA2xsOcayt nkxW0yAlz+RklOOjwvdGQ+P HRkIHN0 jNdcCXrfGOTbfR9nZMGfS4k 0UqZcLkJ9NSqdH8NoefU9XY NgfWItEWCveGYReQ9obgiwg 2xvcjog OlFkYHLyMWb9EXh7QSZcxOy uUtLrXVO3VcC4FVD0hUHwfK 2cjVsxdcqjqU4ySsa+TVJOO jwvdGQ+ YBSeMFY2kBoqQGviOPCdgL2 lJJBrE8j5YmUzJtG1VAmhQ6 IittM1SKZkyEWmDNEkkACCt I2bussx p9wyzdpmDfTnTTUqODr4XAx 9FHKvmCbfNuBqGSK8ZcV0IS I1lQLzvD7bsXuahurdiC5qC yc+UGF5 FNM6MQ80OE04A4SzFzkevCR ibGU+PHRhYmxlIHdpZHRoPS wtWVHaZnYdrEglYA2mSq2pD GVyLWNv bGxh (more content not included)... Normal [facility] Auto Diffon 01-31-2023 Basophils/100 WBC (Bld) 0.7 % Normal 0.0-2.0 [facility] Comment on above: Order Comment: Order Added by Discern Expert. Performed By: #### 2 [id number], 2567670, 2634455, 68615500, [id number], [id number] ####[facility] [address] [place] [address] Basophils/Leukocytes Auto (Bld) [Pure # fraction] 0.1 E9/L Normal 0.0-0.2 [facility] Comment on above: Order Comment: Order Added by Dominick Expert. Performed By: #### 2 087622, 1764146, 0146015, 88564427, [id number], 6222574 ####[facility] [address] [place] [address] Eosinophils/100 WBC (Bld) 1.1 % Normal 0.0-8.0 [facility] Comment on above: Order Comment: Order Added by Discern Expert. Performed By: #### 2 [id number], 6847486, 3323428, 53101627, 26352538, 6695981 ####[address] [place] [address] Eosinophils/Leukocyte s Auto (Bld) [Pure # fraction] 0.1 E9/L Normal 0.0-0.5 [facility] Comment on above: Order Comment: Order Added by Dominick Expert. Performed By: #### 2 803053, 9930257, 8362519, 88236542, [id number], 2438119 ####[address] [place] [address] Lymphocytes/100 WBC (Bld) 31.7 % Normal 14.0-50.0 [facility] Comment on above: Order Comment: Order Added by Dominick Expert. Performed By: #### 2 609276, 8661842, 9878957, 33803198, 01109733, 5509635 ####[address] [place] [address] Lymphocytes/Leukocyte s Auto (Bld) [Pure # fraction] 2.4 E9/L Normal 1.0-4.0 [facility] Comment on above: Order Comment: Order Added by Dominick Expert. Performed By: #### 2 648268, 7606680, 9760483, 48984652, 72106654, 2055338 ####[address] [place] [address] Monocytes/100 WBC (Bld) 9.1 % Normal 4.0-14.0 [facility] Comment on above: Order Comment: Order Added by Dominick Expert. Performed By: #### 2 136531, 1750844, 9050176, 79194192, 54955475, 0887810 ####[facility] [address] [place] [address] Monocytes/Leukocytes Auto (Bld) [Pure # fraction] 0.7 E9/L Normal 0.2-1.0 [facility] Comment on above: Order Comment: Order Added by Discern Expert. Performed By: #### 2 336799, 9321841, 4624188, 36605112, 97711457, 5283431 ####[address] [place] [address] Neutrophils/100 WBC (Bld) 57.4 % Normal 36.0-75.0 [facility] Comment on above: Order Comment: Order Added by Discern Expert. Performed By: #### 2 801839, 4551054, 0343826, 38842728, 92041407, 2565848 ####[address] [address] Neutrophils/Leukocyte s Auto (Bld) [Pure # fraction] 4.3 E9/L Normal 2.0-7.5 [facility] Comment on above: Order Comment: Order Added by Discern Expert. Performed By: #### 2 148546, 5243727, 8682688, 54245907, 69343502, 9910035 ####[address] [place] [address] BMPon 01-31-2023 Creatinine [Mass/Vol] 1.0 mg/dL Normal 0.5-1.3 [facility] Comment on above: Performed By: #### 2 236235, 7982197, 5256438, 46379888, 36581185, 4283371 ####[address] [place] [address] Urea nitrogen [Mass/Vol] 10 mg/dL Normal 5-21 [facility] Comment on above: Performed By: #### 2 116260, 9722289, 2919598, 52130210, 95043699, 5468944 ####[address] [place] [address] Urea nitrogen/Creatinine [Mass ratio] 10 No Units Normal 10-20 [facility] Comment on above: Performed By: #### 2 281424, 7756094, 9218901, 96342707, 77129007, 0192213 ####[facility] [address] [place] [address] Anion gap [Moles/Vol] 14 mmol/L Normal 6-16 [facility] Comment on above: Performed By: #### 2 078752, 7340829, 2660982, 81154592, 18735707, 8636594 ####[facility] [address] [place] [address] Calcium [Mass/Vol] 8.8 mg/dL Low 8.9-11.1 [facility] Comment on above: Performed By: #### 2 067395, 7010644, 2257813, 06235093, [id number], 9439060 ####[facility] [address] [place] [address] Chloride [Moles/Vol] 100 mmol/L Low 101-111 [facility] Comment on above: Performed By: #### 2 258347, 8476504, 0902113, 30921546, 37677842, 4246158 ####[facility] [address] [facility] [address] CO2 [Moles/Vol] 24 mmol/L Normal 21-[address] [facility] Comment on above: Performed By: #### 2 796088, 3423609, 3628878, 54982946, 40617594, 4707150 ####[facility] [address] [place] [address] Glucose [Mass/Vol] 104 mg/dL Normal 55-199 [facility] Comment on above: Result Comment: If t his glucose result represents a fasting glucose, interpretation should refer to the following reference range: 55-99 mg/dL Performed By: #### 2 404835, 1072986, 3458703, 85962217, 64406769, 0587927 ####[facility] [address] [place] [address] Potassium [Moles/Vol] 3.6 mmol/L Normal 3.5-5.3 [facility] Comment on above: Performed By: #### 2 273094, 8822912, 8904606, 23973763, 36445215, 1631183 ####[facility] [address] [place] [address] Sodium [Moles/Vol] 134 mmol/L Low 135-145 [facility] Comment on above: Performed By: #### 2 396413, 1225510, 5138390, 90548170, 73967704, 3478075 ####[address] [address] CBC w/ Auto Diffon Erythrocyte distribution width (RBC) [Ratio] 15.8 % High 10.9-14.2 [facility] Comment on above: Performed By: #### 2 940912, 4993211, 4831144, 84183720, 25705358, 4950298 ####[address] [address] Hematocrit (Bld) [Volume fraction] 31.7 % Low 34.0-46.0 [facility] Comment on above: Performed By: #### 2 929341, 9155881, 0168451, 91707781, 48778391, 0529347 ####[address] [address] Hemoglobin (Bld) [Mass/Vol] 9.8 g/dL Low 12.0-16.0 [facility] Comment on above: Performed By: #### 2 021166, 7656929, 9179688, 53573704, 90917161, 9420461 ####[facility] [address] [place] [address] MCH (RBC) [Entitic mass] 22.8 pg Low 27.0-34.0 [facility] Comment on above: Performed By: #### 2 942104, 8870069, 3116099, 90616152, 30558497, 4815534 ####[address] [address] MCHC (RBC) [Mass/Vol] 30.9 g/dL Low 31.4-36.0 [facility] Comment on above: Performed By: #### 2 645289, 9134444, 2553129, 77074545, 22620053, 5401067 ####[address] [address] MCV (RBC) [Entitic vol] 73.9 fL Low 80.0-100.0 [facility] Comment on above: Performed By: #### 2 530538, 8734360, 7488779, 46456393, 83521290, 9035913 ####[address] [address] Platelet mean volume (Bld) [Entitic vol] 7.0 fL Normal 6.4-10.8 [facility] Comment on above: Performed By: #### 2 210822, 3568584, 6189251, 14862694, 44497994, 9350808 ####[address] [address] Platelets (Bld) [#/Vol] 471.0 E9/L Normal 150.0-500.0 [facility] Comment on above: Performed By: #### 2 740676, 7547910, 3252741, 65829764, 63728335, 8396059 ####[address] [address] RBC (Bld) [#/Vol] 4.3 E12/L Normal 4.3-5.9 [facility] Comment on above: Performed By: #### 2 904279, 2620601, 2316110, 58404729, 14825728, 6552213 ####[address] [address] WBC corrected for nucl RBC Auto (Bld) [#/Vol] 7.6 E9/L Normal 4.0-11.0 [facility] Comment on above: Performed By: #### 2 066354, 0657150, 6105080, 70006176, 26626809, 6564045 ####[facility] [address] [place] [address] CHEMISTRYOrdered By: SYSTEM SYSTEM on 01-31-2023 Albumin [Mass/Vol] 4.3 g/dL Normal 3.3 - 5.0 gm/dL [facility] Albumin/Globulin [Mass ratio] 1.2 {ratio} Normal 1.1 - 2.2 [facility] ALP [Catalytic activity/Vol] 106 [iU]/d High 21 - 98 Int._Unit/L [facility] ALT No additional P-5'-P [Catalytic activity/Vol] 46 [iU]/d Normal 6 - 46 Int._Unit/L [facility] Anion gap [Moles/Vol] 14 mmol/L Normal 6 - 16 mEq/L F [facility] AST [Catalytic activity/Vol] 37 [iU]/d Normal 5 - 43 Int._Unit/L [facility] Bilirubin [Mass/Vol] 1.2 mg/dL High 0.0 - 1 .1 mg/dL [facility] Bilirubin.direct [Mass/Vol] mg/dL Normal 0.1 - 0.4 mg/dL [facility] Bilirubin.indirect [Mass or moles/Vol] Unable to Calculate mg/dL Invalid Interpretation Code 0.1 - 0.9 mg/dL [facility] Calcium [Mass/Vol] 8.8 mg/dL Low 8.9 - 11. 1 mg/dL [facility] Chloride [Moles/Vol] 100 mmol/L Low 101 - 1 11 mmol/L [facility] CO2 [Moles/Vol] 24 mmol/L Normal 21 - 31 mmol/L [facility] Creatinine [Mass/Vol] 1.0 mg/dL Normal 0.5 - 1.3 mg/dL [facility] GFR/1.73 sq M.predicted among blacks MDRD (S/P/Bld) [Vol rate/Area] mL/min/1.73 m2 Normal >=59mL/min/1 .73 m2 [facility] Chem S GFR/1.73 sq M.predicted among non-blacks MDRD (S/P/Bld) [Vol rate/Area] mL/min/1.73 m2 Normal >=59mL/min/1 .73 m2 [facility] [place] Globulin (S) [Mass/Vol] 3.6 g/dL Normal 1.4 - 4.0 gm/dL [facility] Glucose [Mass/Vol] 104 mg/dL Normal 55 - 199 mg/dL [facility] Potassium [Moles/Vol] 3.6 mmol/L Normal 3.5 - 5.3 mmol/L [facility] Protein [Mass/Vol] 7.9 g/dL High 6.0 - 7.8 gm/dL [facility] Sodium [Moles/Vol] 134 mmol/L Low 135 - 145 mmol/L [facility] Urea nitrogen [Mass/Vol] 10 mg/dL Normal 5 - 21 mg/dL [facility] Urea nitrogen/Creatinine [Mass ratio] 10 mg/mg Normal 10 - 20 [facility] CTA Cheston 01-31-2023 CTA Chest Exam Date/Time: 01/31/2023 17:06 EST Reason for Exam: Pulmonary embolism (PE) suspected, high prob;Other (please specify) Report IMPRESSION: No CT evidence of pulmonary embolism or other acute process in the thorax. EXAMINATION: CHEST CT WITH CONTRAST (PULMONARY EMBOLISM PROTOCOL) CLINICAL HISTORY: Pulmonary embolism (PE) suspected, high prob right-sided chest pain radiating to the flank. Headache. Technique: Spiral CTA acquisition of the chest from the thoracic inlet to the upper abdomen following IV contrast. Including MIP reconstructions in coronal plane. Other sagittal and coronal reconstructions. Contrast: IV administration of 58 ml [address] scans at this facility use dose modulation, iterative reconstruction, and/or weight based dosing when appropriate to reduce radiation dose to as low as reasonably achievable. Comparison: Chest x-ray 01/23/2022. No prior CTA chest. RESULT: Evaluation for thromboembolic disease: No evidence for thromboembolic disease in the main, lobar, segmental, and visualized subsegmental pulmonary arteries. No evidence for right heart strain. Lung parenchyma and pleura: Central airways are patent. No consolidation. No suspicious pulmonary nodules. No pleural effusion. No pneumothorax. Thoracic inlet, heart, and mediastinum: Visualized thyroid unremarkable. No axillary, mediastinal, or hilar lymphadenopathy. Normal thoracic aorta. Normal pulmonary artery size. Normal heart size. No coronary artery calcifications. No pericardial effusion or thickening. Esophagus nondilated. Bones: No acute osseous findings. No destructive osseous lesions. Soft tissues: Unremarkable. Upper abdomen: No acute abnormality in the imaged upper abdomen. Report Ordering Provider: Mayur Mabry FINAL REPORT Dictated: 01/31/2023 5:16 pm Roberto Hughes MD Signed (Electronic Signature): 01/31/2023 5:16 pm Signed by: Roberto Hughes MD Transcribed by: ELOISA Technologist: CHRISTIANO Technical Comments GFR (mL/min/1/73m2) na/ age Contrast: Isovue 370 Contrast amount in ml's: 58 [facility] Consent for Treatmenton Consent for Treatment [id number] D:127 [facility] Discharge Instructionson Discharge Instructions [id number] CD:127 [facility] ED Clinical Summaryon 2022 ED Clinical Summary (Inserted Image. Poly ble to display) [place] [id number] ED Clinical Summary Person Information Name: DRISS COPE [facility] Age: 27 Years : 1995 Sex: Female Language: Paraguayan PCP: CRUZ RODRÍGUEZ MD Marital Status: Single Visit Id: Visit Reason: Abdominal pain; Flank pain; RIGHT FLANK PAIN Speciality: Acuity: 3 Enc Type: Emergency Med Service: Emergency Arrival: 01/31/2023 13:41:52 Discharge: 01/31/2023 19:20:28 LOS: 000 05:39 Checkin: 01/31/2023 13:41:52 Checkout: 01/31/2023 19:20:28 Dispo Type: Home (Routine DC) EVENTS: Event Name Event Status Request Date/Time Start Date/Time Complete Date/Time Arrive Complete 01/31/2023 13:41:52 01/31/2023 13:41:52 01/31/2023 13:41:52 Document Home Meds Request 01/31/2023 13:41:52 Triage Complete 01/31/2023 13:41:52 01/31/2023 13:51:26 01/31/2023 13:51:26 Pending Labs Complete 01/31/2023 13:53:04 01/31/2023 14:47:17 Lab Complete 01/31/2023 13:53:04 01/31/2023 14:47:17 Urine Collect Complete 01/31/2023 13:53:04 01/31/2023 14:47:17 Pending Labs Complete 01/31/2023 14:14:51 01/31/2023 14:14:51 01/31/2023 14:45:24 Lab Complete 01/31/2023 14:14:51 01/31/2023 14:14:51 01/31/2023 14:45:24 Pending Labs Complete 01/31/2023 14:40:50 01/31/2023 14:40:50 01/31/2023 14:41:01 Lab Complete 01/31/2023 14:40:50 01/31/2023 14:40:50 01/31/2023 14:41:01 Pending Labs Complete 01/31/2023 14:40:50 01/31/2023 14:40:50 01/31/2023 14:41:41 Pending Labs Complete 01/31/2023 14:47:30 01/31/2023 14:47:30 01/31/2023 14:47:30 Bed Assign Complete 01/31/2023 15:27:23 01/31/2023 15:27:23 01/31/2023 15:27:23 Dr Exam Complete 01/31/2023 15:27:23 01/31/2023 15:30:22 01/31/2023 15:30:22 RN Exam Complete 01/31/2023 15:27:23 01/31/2023 16:04:10 01/31/2023 16:04:10 Registration Complete 01/31/2023 15:30:22 01/31/2023 16:13:04 01/31/2023 16:13:04 Dr Exam Complete 01/31/2023 15:31:01 01/31/2023 15:31:01 01/31/2023 15:31:01 Dr Exam Complete 01/31/2023 15:34:28 01/31/2023 15:34:28 01/31/2023 15:34:28 Reg Complete Request 01/31/2023 16:13:04 Reg Bed Request Complete 01/31/2023 16:13:04 01/31/2023 16:13:04 01/31/2023 16:13:04 CT Complete 01/31/2023 16:23:00 01/31/2023 16:51:12 01/31/2023 17:06:40 Pending Labs Cancel 01/31/2023 16:23:00 01/31/2023 16:27:42 Lab Cancel 01/31/2023 16:23:00 01/31/2023 16:27:42 Pending Labs Complete 01/31/2023 16:28:21 01/31/2023 16:28:21 01/31/2023 17:10:04 Lab Complete 01/31/2023 16:28:21 01/31/2023 16:28:21 01/31/2023 17:10:04 Discharge Complete 01/31/2023 18:59:54 01/31/2023 19:20:33 01/31/2023 19:20:33 Transfer Complete 01/31/2023 19:20:33 01/31/2023 19:20:33 01/31/2023 19:20:33 ADDRESS: [address] [place] [address] [id number] PHYS DOC NOTES: MEDICAL INFORMATION: Prescriptions Given: Medications to Continue with No Changes Other Medications cyclobenzaprine (cyclobenzaprine 10 mg Tab) 1 Tablets By Mouth 3 times a day as needed for spasm. Refills: 0. cyclobenzaprine (cyclobenzaprine 10 mg Tab) 1 Tablets By Mouth 3 times a day as needed Spasm. Refills: 0. cyproheptadine (cyproheptadine 4 mg Tab) By Mouth 3 times a day. ergocalciferol (Vitamin D2 2000 intl units oral capsule) By Mouth every day. hydrOXYzine (hydrOXYzine hydrochloride 25 mg Tab) By Mouth 4 times a day. hyoscyamine (Levsin 0.125 mg SL Tab) 1 Tablets By Mouth every 6 hours. Refills: 1. ibuprofen (ibuprofen 600 mg Tab) 1 Tablets By Mouth every 6 hours. Refills: 0. multivitamin, ( Multivitamins with Vitamin B Complex, Vitamin C, Minerals and L-Methylfolate oral capsule) 1 Capsules By Mouth every day. naproxen (naproxen 500 mg oral enteric coated tablet) 1 Tablets By Mouth 2 times a day. Refills: 0. naproxen (naproxen 500 mg Tab) 1 Tablets By Mouth 2 times a day. Take one tab by mouth two times a day. Refills: 0. ondansetron (Zofran 4 mg Tab) By Mouth every 6 hours as needed Nausea. phenazopyridine (Pyridium 200 mg Tab) 1 Tablets By Mouth 3 times a day. Take one tab by mouth three times a day for three days. Refills: 0. sumatriptan (Imitrex 100 mg Tab) By Mouth Once. PATIENT EDUCATION INFORMATION: Instructions: Flank Pain, Adult Follow up: With: Address: When: Cruz Meza In 3 days 02/03/2023 Comments: Follow-up for evaluation of hypertension in context of known preeclampsia in the period With: Address: When: CRUZ RODRÍGUEZ [facility] [place] [address] [facility] () In 3 days DIAGNOSIS: Flank pain; Headache [facility] ED Note-Physicianon 02-01-20 ED Note-Physician Basic Information Time Seen: Mayur Mabry PA-C 01/31/2023 15:30 Chief Complaint Pt states R sided pain that radiates to flank area that started this morning. SUH this morning. Denies dysuria, n/v. History of Present Illness Patient is a 27-year-old female presents the ED complaining of right-sided flank pain, headache, elevated blood pressure since this morning. Patient is just short of 5 weeks , with a history of preeclampsia necessitating early induction. Patient reports that she has been well since that time. Patient reports that she daily takes her blood pressure, is not currently on any blood pressure medication. Patient is endorsing a dull global headache. Patient denies thunderclap onset, worst headache of life. Patient has any focal neurologic deficits. Patient is also endorsing a right-sided flank pain which is sharp and exacerbated by movement. Patient denies any known injury. Patient denies any dysuria or hematuria. Patient denies any nausea or vomiting. Patient denies any fever or chills. Patient denies any respiratory symptoms. Patient reports to feeling overall well. Patient main concern was that her blood pressure has been elevated today in the 150s over 90s. Review of Systems Full 10 system ROS performed. Pt denies symptoms except as noted above in the HPI. Physical Exam Vitals & Measurements T: 36.6 ?C(Oral) HR: 110(Monitored) RR: 16 BP: 138/92 SpO2: 99% HT: 157 cm WT: 66 kg BMI: 26.78 VITALS: I have reviewed the triage vital signs. GENERAL: Well developed, well appearing adult in no acute distress. NEURO: Alert and oriented. Moves all extremities. Face is symmetric and expressive. EYES: PERRL. No scleral icterus or conjunctival injection. No discharge. HENT: Normocephalic, atraumatic. Hearing is grossly intact. Nares grossly patent and without discharge. Mucous membranes moist. NECK: No JVD. Patient moves neck without restriction. CARDIO: Rhythm regular. Tachycardic. No murmur, rub, or gallop. Pulses equal bilaterally in the upper and lower extremity. No lower extremity edema. PULM: Lungs clear to auscultation in all muro. No wheezes, rales, or rhonchi. No conversational dyspnea. No splinting, stridor, or accessory muscle use. GI/: Abdomen is soft and non-tender. Normoactive bowel sounds. EXTREMITIES: Symmetric muscle bulk. No joint swelling. No clubbing, cyanosis, or deformity. SKIN: Warm and dry. Normal turgor. No rash or lesions appreciated. PSYCH: Mood, affect, and interaction is appropriate to the setting. Medical Decision Making MEDICAL DECISION MAKING Number and Complexity of Problems Differential Diagnosis: PE, nephrolithiasis, preeclampsia, viral illness MDM Data External documents reviewed: [] My EKG interpretation: [] My CT interpretation: No evidence of PE My X-ray interpretation: [] My Ultrasound interpretation: [] Decision rules/scores evaluated: [] Discussed with: Patient discussed with patient BELL HOLE DIGGER, Dr Meza. Patient INSULATION ESTIMATOR was unconcerned with patient presentation as described and work-up as described. Instructed patient to follow-up in about 1 week. Treatment and Disposition ED Course: Patient presents ED for evaluation of headache, elevated blood pressure, flank pain. On exam, patient flank pain most consistent with musculoskeletal injury. Due to the fact the patient was tachycardic on presentation the ED as well as with pain close to the right ribs, did obtain a CTA to rule out PE. No evidence of PE on CTA. No evidence of RAYO on labs, no evidence of nephrolithiasis on UA, patient presentation inconsistent with nephrolithiasis overall. Concerns for preeclampsia discussed with patient INSULATION ESTIMATOR, who stated the patient blood pressure may still be elevated due to preeclampsia, was not concerned overall. Patient most likely with a musculoskeletal injury versus viral illness. Patient tachycardia and hypertension resolved over the course of patient's stay in the ED. Return precautions discussed with patient. Patient discharged home for outpatient follow-up with INSULATION ESTIMATOR. Shared decision making: [] Code status: [] Assessment/Plan Flank pain (R10.9: Unspecified abdominal pain) Headache (R51.9: Headache, unspecified) Orders: CTA Chest Hepatic Function Panel Disposition Plan Patient Discharge Condition Stable Discharge Disposition To home Discharge Prescription List Prescriptions No active prescription medications Follow-up With When Contact Information Cruz Meza In 3 days 02/03/2023 EST Additional Instructions: Follow-up for evaluation of hypertension in context of known preeclampsia in the period CRUZ RODRÍGUEZ In 3 days [address] [place] [address]- Business (1) Additional Instructions: Patient Education Flank Pain, Adult Attestation Patient seen and evaluated by the physician health center assistant. Attending physician was present in the emergency department and supervised care. This (more content not included)... [facility] Comment on above: Result Comment: Elec tronically Signed By: Mayur Mabry PA-C\.br\Date and Time Signed: 01/31/23 19:22 EST\.br\Electronically Co-Signed By: Edin Bermudez M.D..br\Date and Time Co-Signed: 01/31/23 19:42 EST ED Patient Education Noteon 01-31-2023 ED Patient Education Note Urology Flank Pain, Adult Flank pain is pain that is located on the side of the body between the upper abdomen and the back. This area is called the flank. The pain may occur over a short period of time (acute), or it may be long-term or recurring (chronic). It may be mild or severe. Flank pain can be caused by many things, including: ? Muscle soreness or injury. ? Kidney stones or kidney disease. ? Stress. ? A disease of the spine (vertebral disk disease). ? A lung infection (pneumonia). ? Fluid around the lungs (pulmonary edema). ? A skin rash caused by the chickenpox virus (shingles). ? Tumors that affect the back of the abdomen. ? Gallbladder disease. Follow these instructions at home: ? Drink enough fluid to keep your urine clear or pale yellow. ? Rest as told by your health care provider. ? Take gbxp-nac-nhwbrmr and prescription medicines only as told by your health care provider. ? Keep a journal to track what has caused your flank pain and what has made it feel better. ? Keep all follow-up visits as told by your health care provider. This is important. Contact a health care provider if: ? Your pain is not controlled with medicine. ? You have new symptoms. ? Your pain gets worse. ? You have a fever. ? Your symptoms last longer than 2?3 days. ? You have trouble urinating or you are urinating very frequently. Get help right away if: ? You have trouble breathing or you are short of breath. ? Your abdomen hurts or it is swollen or red. ? You have nausea or vomiting. ? You feel faint or you pass out. ? You have blood in your urine. Summary ? Flank pain is pain that is located on the side of the body between the upper abdomen and the back. ? The pain may occur over a short period of time (acute), or it may be long-term or recurring (chronic). It may be mild or severe. ? Flank pain can be caused by many things. ? Contact your health care provider if your symptoms get worse or they last longer than 2?3 days. This information is not intended to replace advice given to you by your health care provider. Make sure you discuss any questions you have with your health care provider. Document Released: 01/03/2007 Document Revised: 10/25/2018 Document Reviewed: 01/25/2018 Elsevier Patient Education ? 2019 [employer]. [facility] ED Patient Summaryon 023 ED Patient Summary (Inserted Image. Poly ble to display) [address] [address] Patient Discharge Instructions Person Information Name: DRISS COPE Age: 27 Years Arrival Date: 01/31/2023 13:41:52 Discharge Diagnosis: Flank pain; Headache Primary Care Physician: CRUZ RODRÍGUEZ MD Provider Information Primary Provider: Edin Bermudez M.D. Advanced Seismic Plotter:Mayur Mabry PA-C The exam and treatment you received in the Emergency Department were for an urgent problem and are not intended as complete care. It is important that you follow up with a doctor, nurse practitioner, or physician?s health center assistant for ongoing care. If your symptoms become worse or you do not improve as expected and you are unable to reach your usual health care provider, you should return to the Emergency Department. We are available 24 hours a day. DRISS COPE has been given the following list of patient education materials, prescriptions and follow-up instructions: Follow-up Instructions: With: Address: When: Cruz Meza In 3 days 02/03/2023 Comments: Follow-up for evaluation of hypertension in context of known preeclampsia in the period With: Address: When: CRUZ RODRÍGUEZ [address] [place] [address] [facility] (1) In 3 days In the event that this physician does not participate in your insurance network, please consult with your insurance company to find a nearby participating provider. Patient Education Materials: Flank Pain, Adult A MESSAGE TO ALL PATIENTS REGARDING OPIOIDS PRESCRIPTION OPIOIDS: WHAT YOU NEED TO KNOW Prescription opioids can be used to help relieve udfabxcw-hr-dqvzth pain and are often prescribed following a surgery or injury, or for certain health conditions. These medications can be an important part of the treatment but also come with serious risks. It is important to work with your healthcare provider to make sure you are getting the safest, most effective care. WHAT ARE THE RISKS AND SIDE EFFECTS OF OPIOID USE? Prescription opioids carry serious risks of addiction and overdose, especially with prolonged use. An opioid overdose, often marked by slowed breathing, can cause sudden . The use of prescription opioids can have a number of side effects as well, even when taken as directed: ? Tolerance?meaning you might need to take more of the medication for the same pain relief ? Physical dependence?meaning you have symptoms of withdrawal when a medication is stopped ? Increased sensitivity to pain ? Constipation ? Nausea, vomiting, and dry mouth ? Sleepiness and dizziness ? Confusion ? Depression ? Low levels of testosterone that can result in lower sex drive, energy, and strength ? Itching and sweating RISKS ARE GREATER WITH: ? History of drug misuse, substance use disorder, or overdose ? Mental health conditions (such as depression or anxiety) ? Sleep apnea ? Older age (65 years and older) ? Avoid alcohol while taking prescription opioids. Also, unless specifically advised by your health care provider, medications to avoid include: ? Benzodiazepines (such as Xanax or Valium) ? Muscle relaxants (such as Soma or Flexeril) ? Hypnotics (such as Ambien or Lunesta) ? Other prescription opioids KNOW YOUR OPTIONS Talk to your health care provider about ways to manage your pain that don?t involve prescription opioids. Some of these options may actually work better and have fewer risks and side effects. Options may include: ? Pain relievers such as acetaminophen, ibuprofen, and naproxen ? Some medication that are also used for depression or seizures ? Physical therapy and exercise ? Cognitive behavioral therapy, a psychological, goal-directed approach, in which patients learn how to modify physical, behavioral, and emotional triggers of pain and stress. IF YOU ARE PRESCRIBED OPIOIDS FOR PAIN: ? Never take opioids in greater amounts or more often than prescribed. ? Follow up with your primary health care provider. o Work together to create a plan on how to manage your pain. o Talk about ways to help manage your pain that don?t involve prescription opioids. o Talk about any and all concerns and side effects. ? Help prevent misuse and abuse o Never sell or share prescription opioids. o Never use another person?s prescription opioids. ? Store prescription opioids in a secure place and out of reach of others (this may include visitors, children, friends, and family). ? Safely dispose of unused prescription opioids: Find your community drug take-back program or your pharmacy mail-back program, or flush them down the toilet, following guidance from the Food and Drug Administration (www.fda.gov/Drugs/Reso hildaForTwinu). ? Visit www.cdc.gov/drugoverdos e to learn about the risks of opioids abuse and overdose. ? If you believe you may be (more content not included)... Normal [facility] HEMATOLOGYOrdered By: Rufus Jenkins on 01-31-2023 Anisocytosis Ql (Bld) Present (01/31/23 2:10 PM) Normal [facility] HemeManSS Erythrocyte distribution width (RBC) [Ratio] 15.8 % High 10.9 - 14.2 % [facility] HemeAutoSS Hematocrit (Bld) [Volume fraction] 31.7 % Low 34.0 - 46.0 % [facility] HemeAutoSS Hemoglobin (Bld) [Mass/Vol] 9.8 g/dL Low 12.0 - 16.0 gm/dL [facility]eAutoSS Hypochromia Auto Ql (Bld) Present (01/31/23 2:10 PM) Normal [facility] HemeManSS MCH (RBC) [Entitic mass] 22.8 pg Low 27.0 - 34.0 pg [facility] HemeAutoSS MCHC (RBC) [Mass/Vol] 30.9 g/dL Low 31.4 - 36.0 gm/dL [facility]eAuto[facility] MCV (RBC) [Entitic vol] 73.9 fL Low 80.0 - 100.0 fL [facility] HemeAutoSS Morphology Blair (Bld) [Interp] See Morphology (01/31/23 2:10 PM) Normal [facility] HemeManSS Platelet mean volume (Bld) [Entitic vol] 7.0 fL Normal 6.4 - 10.8 fL [facility] HemeAutoSS Platelets (Bld) [#/Vol] 471.0 E9/L Normal 150.0 - 500.0 E9/L [facility] HemeAutoSS RBC (Bld) [#/Vol] 4.3 E12/L Normal 4.3 - 5.9 E12/L [facility]eAuto[facility] WBC corrected for nucl RBC Auto (Bld) [#/Vol] 7.6 E9/L Normal 4.0 - 11.0 E9/L [facility] HemeAutoSS HEMATOLOGYOrdered By: SYSTEM SYSTEM on 01-31-2023 Basophils/100 WBC (Bld) 0.7 % Normal 0.0 - 2.0 % [facility] HemeAutoSS Basophils/Leukocytes Auto (Bld) [Pure # fraction] 0.1 E9/L Normal 0.0 - 0.2 E9/L [facility]eAutoSS Eosinophils/100 WBC (Bld) 1.1 % Normal 0.0 - 8.0 % [facility] HemeAutoSS Eosinophils/Leukocyte s Auto (Bld) [Pure # fraction] 0.1 E9/L Normal 0.0 - 0.5 E9/L [facility]eAutoSS Lymphocytes/100 WBC (Bld) 31.7 % Normal 14.0 - 50.0 % [facility] HemeAutoSS Lymphocytes/Leukocyte s Auto (Bld) [Pure # fraction] 2.4 E9/L Normal 1.0 - 4.0 E9/L [facility] HemeAutoSS Monocytes/100 WBC (Bld) 9.1 % Normal 4.0 - 14.0 % [facility] HemeAutoSS Monocytes/Leukocytes Auto (Bld) [Pure # fraction] 0.7 E9/L Normal 0.2 - 1.0 E9/L [facility]Auto[facility] Neutrophils/100 WBC (Bld) 57.4 % Normal 36.0 - 75.0 % [facility] HemeAutoSS Neutrophils/Leukocyte s Auto (Bld) [Pure # fraction] 4.3 E9/L Normal 2.0 - 7.5 E9/L [facility] HemeAutoSS Hep Func Panelon 01-31-2023 Bilirubin.indirect [Mass or moles/Vol] UTC Abnormal 0.1-0.9 [facility] Comment on above: Result Comment: Resu lt verified by Discern Rule. Performed result UTC (Unable to Calculate) was sent as an Alpha code due the inability to calculate a valid numeric value. Performed By: #### 2 518503, 4523779, 1682711, [id number], [id number], 7479028 ####[facility] [address] [place] [address] Albumin [Mass/Vol] 4.3 g/dL Normal 3.3-5.0 [facility] Comment on above: Performed By: #### 2 621637, 6099031, 2654942, 17911541, 03334041, 2864879 ####[facility] [address] [place] [address] Albumin/Globulin (S) [Mass conc ratio] 1.2 Normal 1.1-2.2 [facility] Comment on above: Performed By: #### 2 229803, 9760301, 6509098, 82735557, 24771474, 6038823 ####[facility] [address] [place] [address] ALP [Catalytic activity/Vol] 106 Int._Unit/L High 21-98 [facility] Comment on above: Performed By: #### 2 617713, 5809964, 9343648, 69488407, 85617088, 6841678 ####[address] [address] ALT No additional P-5'-P [Catalytic activity/Vol] 46 Int._Unit/L Normal 6-46 [facility] Comment on above: Performed By: #### 2 325312, 4776350, 4166591, 32702125, 47728414, 4825256 ####[facility] [address] [place] [address] AST [Catalytic activity/Vol] 37 Int._Unit/L Normal 5-43 [facility] Comment on above: Performed By: #### 2 795206, 2923863, 0847553, 97466761, 25300620, 8383222 ####[facility] [address] [place] [address] Bilirubin [Mass/Vol] 1.2 mg/dL High 0.0-1.1 [facility] Comment on above: Performed By: #### 2 719992, 0482636, 0510131, 05141482, 87504489, 9639737 ####[facility] [address] [place] [address] Bilirubin.direct [Mass/Vol] mg/dL Normal 0.1-0.4 [facility] Comment on above: Performed By: #### 2 577890, 8615446, 5671988, 43394631, 75391665, 3899779 ####[facility] [address] [place] [address] Globulin (S) [Mass/Vol] 3.6 g/dL Normal 1.4-4.0 [facility] Comment on above: Performed By: #### 2 026950, 5821900, 7625815, 68463832, 60896657, 1272795 ####[facility] [address] [place] [address] Protein [Mass/Vol] 7.9 g/dL High 6.0-7.8 [facility] Comment on above: Performed By: #### 2 297630, 8660584, 6338751, 26487635, 12902755, 7516220 ####[facility] [address] [place] [address] Morphon 01-31-2023 Anisocytosis Ql (Bld) Present Normal [facility] Comment on above: Order Comment: Order Added by Discern Expert. Performed By: #### 2 359171, 7937717, 3720182, 04791332, 99217667, 6236036 ####[facility] [address] [place] [address] Hypochromia Auto Ql (Bld) Present Normal [facility] Comment on above: Order Comment: Order Added by Discern Expert. Performed By: #### 2 241509, 8633961, 8349403, 62337315, 98531386, 4736296 ####[facility] [address] [place] [address] Morphology Blair (Bld) [Interp] See Morphology Normal [facility] Comment on above: Order Comment: Order Added by Discern Expert. Performed By: #### 2 177996, 0150855, 4721657, 52956907, 77102854, 3952538 ####[facility] [address] [place] [address] SEROLOGYOrdered By: Eleonora Newton on 01-31-2023 HCG.beta subunit (U) [Moles/Vol] Negative Normal [facility] [place] Sero U BetaHcg Qualon 01-31-2023 HCG.beta subunit (U) [Moles/Vol] Negative Normal [facility] Comment on above: Performed By: #### 1 [id number], 89315204 ####[facility] [address] [place] [address] UA With Cult Reflexon 2022 Bilirubin Ql (U) Negative Normal Negative [facility] Comment on above: Performed By: #### 1 2918263, 60790029 ####[facility] [address] [place] [address] Clarity (U) CLEAR Normal Clear [facility] Comment on above: Performed By: #### 1 0080192, 58725318 ####[facility] [address] [place] [address] Color (U) YELLOW Normal Yellow [facility] Comment on above: Performed By: #### 1 5088681, 33648643 ####[address] [address] Epithelial cells.squamous LM.HPF (Urine sed) [#/Area] 3-4 Normal 0-2 [facility] Comment on above: Performed By: #### 1 7953355, 40944411 ####[facility] [address] [place] [address] Glucose Test strip (U) [Mass/Vol] Negative Normal Negative [facility] Comment on above: Performed By: #### 1 6450471, 11501739 ####[facility] [address] [place] [address] Hemoglobin Ql (U) Negative Normal Negative [facility] Comment on above: Performed By: #### 1 6030304, 27690567 ####[facility] [address] [place] [address] Ketones (U) [Mass/Vol] Negative Normal Negative [facility] Comment on above: Performed By: #### 1 1470267, 26581059 ####[address] [address] [facility].plasma/Lithiu m.RBC (Bld) [Mass ratio] 0-3 Normal 0-3 [facility] Comment on above: Performed By: #### 1 0910997, 14744991 ####[place] [address] Nitrite Ql (U) Negative Normal Negative [facility] Comment on above: Performed By: #### 1 0203172, 02865909 ####[place] [address] pH (U) 6.0 [pH] Invalid Interpretation Code 5.0-9.0 [facility] Comment on above: Performed By: #### 1 2276580, 02146325 ####[place] [address] Protein (U) [Mass/Vol] Negative Normal Negative [facility] Comment on above: Performed By: #### 1 7182340, 89974963 ####[place] [address]34[address] Specific gravity (U) [Rel density] 1.010 Invalid Interpretation Code 1.005-1.030 [facility] Comment on above: Performed By: #### 1 7935305, 26965979 ####[place] [address] Type of Urine collection method Clean Catch Normal [facility] Comment on above: Performed By: #### 1 8033422, 14118493 ####[address] [address] Urobilinogen Qn (U) 0.2 {Aspen'U}/dL Normal 0.0-1.0 [facility] Comment on above: Performed By: #### 1 8380327, 09235534 ####[address] [address] WBC Auto Ql (U) Negative Normal Negative [facility] Comment on above: Performed By: #### 1 3710302, 89103329 ####[facility] [address] [place] [address] WBC LM.HPF (Urine sed) [#/Area] 0-5 Normal 0-5 [facility] Comment on above: Performed By: #### 1 6754129, 53885254 ####[facility] [address] [place] [address] URINALYSISOrdered By: Solomon flores on 01-31-2023 Bilirubin Ql (U) Negative (01/31/23 1:57 PM) Normal Negative [facility] UA Auto SS Clarity (U) Clear (01/31/23 1:57 PM) Normal Clear [facility] UA Auto SS Color (U) Yellow (01/31/23 1:57 PM) Normal Yellow [facility] UA Auto SS Epithelial cells.squamous LM.HPF (Urine sed) [#/Area] 3-4 /HPF Normal 0-2/HPF [facility] UA Aut o SS Glucose Test strip (U) [Mass/Vol] Negative (01/31/23 1:57 PM) Normal Negative [facility] UA Auto SS Hemoglobin Ql (U) Negative (01/31/23 1:57 PM) Normal Negative [facility] UA Auto SS Ketones (U) [Mass/Vol] Negative (01/31/23 1:57 PM) Normal Negative [facility] UA Auto SS [facility].plasma/Lithiu m.RBC (Bld) [Mass ratio] 0-3 /HPF Normal 0-3/HPF [facility] UA Auto SS Nitrite Ql (U) Negative (01/31/23 1:57 PM) Normal Negative [facility] UA Auto SS pH (U) 6.0 *NA* (01/31/23 1:57 PM) Invalid Interpretation Code 5.0 - 9.0 [facility] UA Auto SS Protein (U) [Mass/Vol] Negative (01/31/23 1:57 PM) Normal Negative [facility] UA Auto SS Specific gravity (U) [Rel density] 1.010 *NA* (01/31/23 1:57 PM) Invalid Interpretation Code 1.005 - 1.030 [facility] UA Auto SS UA Spec Desc Clean Catch (01/31/23 1:57 PM) Normal [facility] UA Auto SS Urobilinogen Qn (U) 0.0949499 {Aspen'U}/dL Normal 0.0 - 1.0 EU/dL [facility] UA Auto SS WBC Auto Ql (U) Negative (01/31/23 1:57 PM) Normal Negative [facility] UA Auto SS WBC LM.HPF (Urine sed) [#/Area] 0-5 /HPF Normal 0-5/HPF [facility] UA Auto SS eGFRon 01-31-2023 GFR/1.73 sq M.predicted among blacks MDRD (S/P/Bld) [Vol rate/Area] mL/min/{1.73_m2} Normal >=59 [facility] Comment on above: Order Comment: Order added by Discern Expert. Result Comment: eGFR is race adjusted. AA=. Performed By: #### 2 708058, 3876265, 1575508, 23787094, 34270192, 2510088 ####[facility] [address] [place] [address] GFR/1.73 sq M.predicted among non-blacks MDRD (S/P/Bld) [Vol rate/Area] mL/min/{1.73_m2} Normal >=59 [facility] Comment on above: Order Comment: Order added by Discern Expert. Result Comment: Volcanology Professor jose kidney disease could be indicated at eGFR's of less than 60 mL/min/1.73m2. Kidney failure is indicated at less than 15 mL/min/1.73m2. Performed By: #### 2 624062, 9074824, 5448670, 03676037, 05237960, 7193076 ####[facility] [address] [place] [address] IntraOperative Documentson 0 01-08-2023 IntraOperative Documents [id number] CD:127 Normal [facility] Coding Summary.on 01-02-2023 Coding Summary. CD:[id number] Gh0 bWw+PGhlYWQ+JS4FMAXdU69 qdTIjpG7HM5lMPF5DYNMLXB BCVN5ECE5yaVQ9BLmjG5Vaa iAv ViykyKDrXO32SXd3IYW6bXu hMVedfA3liWSeI7c6UdGkKH 19uI17LLxpHQYaGhM0QlTxf jsgbWFy M5jlKqKsuYNqJzq+PHRhYmx lIHdpZHRoPScxMDAlJyBzdH bqQM5oZx2fILGvYJBdqUkbb HNlOiBj r9icVRSxPXbnZN9epCzyH9U vbPP4WNTjf0e3Xm28eWW+PH KzWSW9oLcyFIidc907HvCbg 6xzCNB7 bCMbJZtxTYR5J10iw9N6JVA eZZJqOJE6wPF1kJ8cuRtexl lpW7NvgNDfLkC9YCY0jNPem E9ebSac wcpyxD6pVot+V67ETH3PMRC NJN1SJdf2X8FnBoxuvOK+PC 55XXDvHU13yXNxhCVbi0qox Hn0RlQo DWYzPPG6bYuuHOacd1NpULS qA50lgVBba6I9HUNkpBluiQ LrAoItyMF9eU0oDImsrwgjm 2hvdzsn Zifcj7ikde40wU92W93yICa yEAFoIQV2GOVbCBEnmVvvqf 6toB5ySw9+GErou6csi8nxx Xy8PwDa UZRevdRnuZvtMKX6f5DbFz2 8K3VfaTcmv8VlMes1ue69sA Qwy0V0hBX7GHkrTLOkgK2cF WxlZnQ6 AJVlSuEbdN28jMRsAJftBf1 fiNdmgHjuMP5yJDUklwerQK FkpX2rIBKupQFanEwqRQ6dG TBpbjtm r570HfQmAUF8MLPbvWYaU2U rtD6uAbMaZOCiEZAgJ6AvzZ KlXHfyZ549AGvvHmL5KSThc hZdE6Fu PXIisRcrXtA0g5A4Ow1Qa9W uytqcPBI0ULhhLPDxMpZ8Eu CnKtV0Z0SdJml0HBDlcEitC F8qQ6Ek LHEhetekfkexiMP3QEIgDOQ bwB07gXIfXDttSi1cj8K8u8 34HIFmJHQzvB32Le6wfLusF TBwdCBU vL6yalcha0mprnlxNeMtLFO eBQj3BGy3OFTmcOjlLiJwVY Y1JlT8TQC7oYJvvG6wzJyed ewdzW6v Oyc+K38vvZ5zSDO4NKF0coa lTDQwmtYxYG32TH64V5KdJu wvdGFibGU+PGRpdiBzdHlsZ T4aRbVr k8bmj8YoQHfoY9NfJBGoSTq sMdq2RCYpZNI1xMH7mA0mVQ MyTPwih2F1uFB7A2RbfvLiz u8rf6oe PFQcWOtrL48xqJZaf2L0NWQ xcKI0SUMpvOowQuTqtI92Vg c+JJYhoFcxn4BlWmihp1voz 9brkKm2 DcPsRVIwljEsjWbfVKA2b8F bHh90S52ySSzzZAWpOKYoNB HgBRVwqZgdlm2ozM9wHi9+P GNvbCB3 pYB1pY8kTLInVyY2KYekL47 8SpIvbZPeQbtqc6mwn9sabR e0AxQtSOQhdkBapOziDXO9m 2RpHx81 J16cUDrqYUBxGDOlESQlDSX vfMbecd4riN0fCv5+PC9jb2 qnee79dQ77eYT+JZFyDZH7b WxlPSdw ALQkpN5fJHiiTcB8RDNbKbB ioK21iWJmCYjwZo5btSfnxW aqLV4pWUKlkltgc419VpFrf 2xkIDEw lZRzQHlaFRX3N96tt3R8XKV zXFCtARL6mFO0qX4dlHgngf ogbGVmdDsgdmVydGljYWwtY TyhR781 IHRvcDsnPlBhdGllbnQgTmF gUBo5D9DdVev3LNFupOoeIU 9kfVZcEHpvUl9afXbiuGfbL S2pYZNj echqs954AiFxj9wsXDCpqGY nBCqnVFT7G56lj7S2XVNvSP DoTYF9aXC8jX2drNvjhenty GVmdDsg txUahAgtZEthOKdlV890ZTT beCqyElCedaJuWITwdOU8KS 55IP59cEVkg7S6dTK8M9OyP GRpbmct wspxxXO3EVEjITLmjO28Av4 exDarXw9sTFFzPJR0PBBzfQ DrL0RvdS8sJnTiRAJcORDlS 3RleHQt UExlT389EHekOeX1OWAdauU nN2DqRQPwnJbkPfZ0y7D9Jb 9SM2I6CI60IJ52jSLrs0W8w MD4B9Kb AGCqoyxoglzajIA3FBQpRKB nmD21Uz7uxAlqKc5aYBKeIE L1ZJZriXMkH0TqdW5jZxRnD DAwMDAw L6VunNPgVUfpD863NOeqUdM 5LZConyGtV7HoVSKdzOjyMa M0t7C8Ur2NITj7VE69PR28b KXis4E4 eON3U4GlOHNzbpirnsgngQG 7SKAyGEBmaI46Hh3wwWxqOr 2cTIGoNZF8GHNpyYEyL2Azk R8cUsQz ONMxFCZiA9FwcXBuLQntQ97 0XYjpBwE9AEFvdbHoY1RkRK GgfFyhOoK9d0I8Mo4WCXExP B59YVR5 cLH0XR04KX51J9FuQxiouNM ibGU+PHRhYmxlIHdpZHRoPS mmGURdOnVcyBmlAE4iSm3fF GVyLWNv lHhwmRXpReBtk0xcHTOxHTl gGX6eiVhpQ0ZfhCL6TSJrd8 d6Va47I87sM8SkmIS+PGNvb RY7yLX0 wQ5yQmWzRaQ6WSefN103VrY jfRGoEvwex3qhb6xmfKm6Mz W2WAMxfyQesIipSLD5n1AtP v37Q48l IHdpZHRoPSIxNSUiIHZhbGl hbo0qqT7sGf9+CZJnnZL2nB O1cD6gPjFeBzS1DXoeB888W nRvcCIv Ihqhf7ikp1tjaQe3OuDfSBT kntVloFfqZSJ8l2KgHl61S2 LhmVbkq6ToFxs9np47vZFao 5Y6fGV3 N7DkDZOkakjwqGDzoIdtNP2 qCTSuysiwGEFvjM1bCOTkR9 h7DcPfXoJ2ALmcT6UcmfR6R DEwcHQg EBliZOH0H26ri7D2DWRdYRI eXCI2tOH3vS2xgNrfdktkqD VmdDsgdmVydGljYWwtYWxpZ 246IHRv kWvsNHUllM2vTLOshBYatKt pIZ4cRVMeierbKeLHOaWSWE ajTSYVVZgITaZTAN96PP73d LFuj0I1 fRI0G1QfMVSejqtewwnscGW 7FSIhJJZytX80fPYuPWysQw 4wn8M2i980ZZCcSHNeeZ57Q l4lkBuv NUTisKIUmG1iysseb3vlnga rBqJiSRMgJCq7PNt2HZShhA zeWfWtBCD6BwP9BIZ2sKWvh Q6tnCwf whjetI9tRre+MDQvMDgvMTk 5NTwvdGQ+FVOcFTZ8vMpwRR gjHWRqcH0pLDAeK1x3GkEdE gN4MLlz R9PhCPShcqjoMd83qG6uWhZ sOiI9SCqtQ8LadsN6QURifC FtFYwyBKG1T98ss4M1WOZnD DAwMDA7 xJK1uA9byOnmeazqmEVfaVj tpkQyvIyjSGazVWqhW313WS OebWrqSzC5QKowUWLpTW34H S28kKSm v3N3aAI4C6VdOPEivqjxcce rbKV7YOZaMBEtiL90jEVgPM guJc8mq2I3k336LIOuZDXjc J08Vv2c jUsyVRWfuLNKgR2uvbcwc6v jqgqqBcRgWHLeVFw1DTa9VK GjoGhpAiQvXJE4WvX7JOC5v VUjjZ8u tXlhqheowL9hAzh+RmVtYWx gUF49UJ37kDBpa0U6kBW7A1 BnEDPefkjuqxtlkEN9OZHtL DUwaW47 dAXfTKlnPp4qf4M7l851GXC mSXWyaA82Cw6ebZfsOTJgrC OQaO8uqvrqs4uhgmgqRgXwU DAwMDt0 RZt9EXJrbWjsDqUwMUN6KrV 5PZS2qHMosL4nyWndkhblhF 9wOyc+J7Z3rAV7hOMrySuxa GQ+PC90 sg03J9WxKpuoRqx3ZQTbKNH 9aLL2kB6nTBYdHJyoa8B5fB F6Z9OivwWtvk4tm6szGVAzB WbcL60s yXEwd8A6FJXeiDF3LUEghLl iBkTndC72Goi+PGNvbGdyb3 XlQimur6mpw1sjfUg9FmIeB SIgdmFs oFucBQG9j5LhNf18Q56wBYj pZHRoPSIzMCUiIHZhbGlnbj 0zhD5rLh7+NUNsbDJ5mKQ4z P6uUjWx BzC0HOfrZ825QiSwhQMjRsd qq4fqi1xkyXf1EzSrNHHpmo FukSxeFGW9n6OiXf37P3Xzh Esiw7Uz Ija8eu04rOVly9P4nVZ7N4F qKUPnbvxycREncEwaLD2uYV OvtndjWMViyY5wPNMmO2y2R iAwLjA1 VZloP2SeqsB8KELdpZKnXYI ycUUWgV6fvumft0ewoopyDf WfJZXpWHm5YJp6VUNgeHngA iBsZWZ0 SyD8DIY6pPRxvS7dhLkozvd kzY2jLhf+GCd4k8ippGXhPS 7ttNJ8HB19QN57mJFth8Q8j RD3H9Bd TMYfbhfuulkabUA7GJTxOIK izM50Uu7mxKdoXf6oUVQtRO I2XSQblVFhA5SwfQ5fIqPkS DAwMDAw Z2IgiZIdHOcoZ874DBcxUcX 9CPDdegDbD2LbFZRbrUhyFz I0k8M2Ki0HXO88EM55FU54d BFka3O9 vEP4A6PlJEAzrkmxxxpyzXJ 2YTSvLBTehS44Jv9czIzxKt 2nKREpAGH1XYEkmUXxK1Rxr P1vTpUt DQJlIPEhD0YxlBYxDNyhX42 6KYeeCyI1PPCnfrHdQ4WiTG SkjQtkMvY1m6E0Ri4EGp26E N09ZK57 uHJlm4A5gXE5N8DdMOCljgh dsuztvVN8WZIwPGMrdL66Pa 9mlBxfSo9fIDXmOEC4XZWrs KVnI1Ha bN8mGsKnZTLxGZHlP0JdjBB rASljD833XLufVnD6LPBwbw HqO5JhJJMsnQuaQwD3l9V6A n3OUUqj tgp8Y2SoMatqbSS+KL76RWN lEF25qGIokHWou2mheVm3In LcHIOmSXD5hAllAQrzx4HjZ FXzC39i bGFw (more content not included)... Normal [facility] Main OR Intraoperative Recor don 01-02-2023 Main OR Intraoperative Record IntraOp Document Type FT Summary Primary Physician: Nathan POP DO Finalized Date/Time: 01/02/23 14:06:20 Pt. Name: DRISS COPE/Sex: 1995 Female Med Rec #: [id number] Physician: Edin Bermudez M.D. Financial #: [id number] Pt. Type: O Room/Bed: / Admit/Disch: 12/30/22 08:13:06 - 12/30/22 15:00:09 Institution: Case Times FT Entry 1 Patient Times In Room 12/30/22 12:21:00 Out Room 12/30/22 13:04:00 Procedure Times Start 12/30/22 12:40:00 Stop 12/30/22 12:56:00 Anesthesia Times Start 12/30/22 12:21:00 Stop 12/30/22 13:04:00 Last Modified By: Danny Cortez RN 12/30/22 13:47:39 General Comments: 01/02/23 Chart opened to review and send charges LRoth CSFA Case Attendance FT Entry 1 Entry 2 Entry 3 Case Attendee Vamsi BLACKWELL, Nathan Morris DO, RN, Andrea L Role Performed Anesthesiologist of Surgeon - Primary Cream Gatherer - Primary Record Time In 12/30/22 12:21:00 12/30/22 12:21:00 12/30/22 12:21:00 Time Out 12/30/22 13:04:00 12/30/22 13:04:00 12/30/22 13:04:00 Procedure DILATATION and SUCTION DILATATION and SUCTION DILATATION and SUCTION CURETTAGE CURETTAGE CURETTAGE Comments Preceptor and room assist Last Modified By: Diego RN, Danny Cortez RN, Danny Vidal RN 12/30/22 13:47:48 12/30/22 13:47:48 12/30/22 13:47:48 Entry 4 Entry 5 Case Attendee Danny Cortez RN, CST, Yahaira Perkins Role Performed Cream Gatherer - Primary Scrub - Primary Time In 12/30/22 12:21:00 12/30/22 12:21:00 Time Out 12/30/22 13:04:00 12/30/22 13:04:00 Procedure DILATATION and SUCTION DILATATION and SUCTION CURETTAGE CURETTAGE Comments Orientation Last Modified By: Danny Cortez RN, RN, Sheminith A 12/30/22 13:47:48 12/30/22 13:47:48 Perioperative Protocols FT Pre-Care Text: Implements protective measures prior to operative or invasive procedure, confirms identity before the operative or invasive procedure, verifies operative procedure, surgical site, and laterality Entry 1 Procedure(s) DILATATION and SUCTION Patient Identity Birthday, Blood Band, CURETTAGE Verified (select at ID Band Check, Patient least 2): Participation Consents / H and P Anesthesia Consent, Operative Site N/A Verified HandP, Surgery/Procedure Marking Verified Consent, Transfusion Consent Surgical Site Yes Laterality Verified Yes Verified Procedure Verified Yes Correct Patient Yes Position Verified Availability Equipment, Medication Prep Dry No Verified (If Applicable) PreOp Antibiotic No Time Out Vamsi BLACKWELL, Art Barron, Given Participants Nathan POP DO, Krupp RN, Diego Mireles RN, Sheminith A, McClain CST, Yahaira Perkins Time Out Complete 12/30/22 12:39:00 Outcomes Met? Yes Last Modified By: Danny Cortez RN 12/30/22 12:53:32 Post-Care Text: The patient is free from signs and symptoms of injury caused by extraneous objects Allergy Information FT Pre-Care Text: Verifies allergies Entry 1 Allergies Reviewed? Yes Allergies Reviewed Self/Patient With Outcomes Met? Yes Last Modified By: Danny Cortez RN 12/30/22 13:13:01 Post-Care Text: The patient received appropriate medication(s) safely administered during the perioperative period Surgical Procedures FT Entry 1 Procedure Description Procedure DILATATION and SUCTION Surgeon Description SUCTION DILATATION AND CURETTAGE CURETTAGE Primary Procedure Yes Primary Surgeon Nathan POP DO Start 12/30/22 12:40:00 Stop 12/30/22 12:56:00 Anesthesia Type General Surgical Service Obstetric Gynecology Wound Class 2 - Clean-Contaminated Last Modified By: Danny Cortez RN 12/30/22 13:52:19 General Case Data FT Pre-Care Text: Classifies surgical wound, implements aseptic technique, initiates traffic control Entry 1 Case Information OR OR 2 FT Case Level Level 2 Wound Class 2 - Clean-Contaminated Specialty Obstetric Gynecology ASA Class 2E Preop Diagnosis RETAINED PRODUCTS OF Postop Same As Preop Yes CONCEPTION WITH HEMORRHAGE Postop Diagnosis RETAINED PRODUCTS OF Outcomes Met? Yes CONCEPTION WITH HEMORRHAGE Last Modified By: Danny Cortez RN 12/30/22 13:14:49 Post-Care Text: The patient is free from signs and symptoms of infection Skin Assessment (Pre Procedure) FT Pre-Care Text: Implements protective measures to prevent skin/ tissue injury due to thermal or mechanical sources Evaluates for signs and symptoms of physical injury to skin and tissue Entry 1 Skin Integrity Intact, [place], Warm, and Skin Abnormality No Dry Outcomes Met? Yes Last Modified By: Danny Cortez RN 12/30/22 13:14:59 Post-Care Text: The patient is free from signs and symptoms of injury caused by extraneous objects Patient Positioning FT Pre-Care Text: Identifies physical alterations that require additional precautions for procedure-specific positioning, verifies presence of prost (more content not included)... [facility] Consent for Anesthesiaon Consent for Anesthesia [id number]#1.00C D:127 [facility] Consent for Procedure/Surger yon 01-01-2023 Consent for Procedure/Surgery [id number]#1.00C D:127 [facility] Discharge Instructionson Discharge Instructions [id number]#1.00C D:127 [facility] IntraOperative Documentson 0 01-01-2023 IntraOperative Documents [id number]#1.00C D:127 [facility] IntraOperative Documents [id number]#1.00C D:127 [facility] IntraOperative Documents [id number]#1.00C D:127 [facility] Prescriptions/Work Noteson 0 01-01-2023 Prescriptions/Work Notes [id number]#1.00C D:127 [facility] ABO/Rhon 12-30-2022 ABO/Rh Positive Invalid Interpretation Code [facility] Comment on above: Performed By: #### 1 [id number] #### [facility] [address] [place] [address] ABO/Rh History Checkon 12-30 ABO/Rh History Check Patient discharged prior [facility] Comment on above: Performed By: #### 1 [id number] #### [facility] [address] [place] [address] ABSCon 12-30-2022 ABSC Gel Interp Negative Normal [facility] Comment on above: Performed By: #### 1 [id number] #### [facility] [address] [place] [address] Auto Diffon 12-30-2022 Basophils/100 WBC (Bld) 1.2 % Normal 0.0-2.0 [facility] Comment on above: Order Comment: Order Added by Discern Expert. Performed By: #### 1 [id number] #### [facility] [address] [place] [address] Basophils/Leukocytes Auto (Bld) [Pure # fraction] 0.1 E9/L Normal 0.0-0.2 [facility] Comment on above: Order Comment: Order Added by Discern Expert. Performed By: #### 1 [id number] #### [facility] [address] [place] [address] Eosinophils/100 WBC (Bld) 4.1 % Normal 0.0-8.0 [facility] Comment on above: Order Comment: Order Added by Discern Expert. Performed By: #### 1 [id number] #### [facility] [address] [place] [address] Eosinophils/Leukocyte s Auto (Bld) [Pure # fraction] 0.2 E9/L Normal 0.0-0.5 [facility] Comment on above: Order Comment: Order Added by Discern Expert. Performed By: #### 1 [id number] #### [facility] [address] [place] [address] Lymphocytes/100 WBC (Bld) 40.5 % Normal 14.0-50.0 [facility] Comment on above: Order Comment: Order Added by Discern Expert. Performed By: #### 1 [id number] #### [facility] [address] [place] [address] Lymphocytes/Leukocyte s Auto (Bld) [Pure # fraction] 2.3 E9/L Normal 1.0-4.0 [facility] Comment on above: Order Comment: Order Added by Discern Expert. Performed By: #### 1 [id number] #### [facility] [address] [place] [address] Monocytes/100 WBC (Bld) 7.6 % Normal 4.0-14.0 [facility] Comment on above: Order Comment: Order Added by Discern Expert. Performed By: #### 1 [id number] #### [facility] [address] [place] [address] Monocytes/Leukocytes Auto (Bld) [Pure # fraction] 0.4 E9/L Normal 0.2-1.0 [facility] Comment on above: Order Comment: Order Added by Discern Expert. Performed By: #### 1 [id number] #### [facility] [address] [place] [address] Neutrophils/100 WBC (Bld) 46.6 % Normal 36.0-75.0 [facility] Comment on above: Order Comment: Order Added by Discern Expert. Performed By: #### 1 [id number] #### [facility] [address] [place] [address] Neutrophils/Leukocyte s Auto (Bld) [Pure # fraction] 2.6 E9/L Normal 2.0-7.5 [facility] Comment on above: Order Comment: Order Added by Discern Expert. Performed By: #### 1 [id number] #### [facility] [address] [place] [address] BLOOD BANKOrdered By: Teena Quiroz on 12-30-2022 ABO/Rh Interp Positive Invalid Interpretation Code [facility] [place] Subsection ABSC Gel Interp Negative (12/30/22 11:28 AM) Normal [facility] [place] Subsection BMPon 12-30-2022 Creatinine [Mass/Vol] 0.9 mg/dL Normal 0.5-1.3 [facility] Comment on above: Performed By: #### 1 [id number] #### [facility] [address] [place] [address] Urea nitrogen [Mass/Vol] 17 mg/dL Normal 5-21 [facility] Comment on above: Performed By: #### 1 [id number] #### [facility] [address] [place] [address] Urea nitrogen/Creatinine [Mass ratio] 19 No Units Normal 10-20 [facility] Comment on above: Performed By: #### 1 [id number] #### [facility] [address] [place] [address] Anion gap [Moles/Vol] 12 mmol/L Normal 6-16 [facility] Comment on above: Performed By: #### 1 [id number] #### [facility] [address] [place] [address] Calcium [Mass/Vol] 8.6 mg/dL Low 8.9-11.1 [facility] Comment on above: Performed By: #### 1 [id number] #### [facility] [address] [place] [address] Chloride [Moles/Vol] 103 mmol/L Normal 101-111 [facility] Comment on above: Performed By: #### 1 [id number] #### [facility] [address] [place] [address] CO2 [Moles/Vol] 26 mmol/L Normal 21-[address] [facility] Comment on above: Performed By: #### 1 [id number] #### [facility] [address] [place] [address] Glucose [Mass/Vol] 105 mg/dL Normal 55-199 [facility] Comment on above: Result Comment: If t his glucose result represents a fasting glucose, interpretation should refer to the following reference range: 55-99 mg/dL Performed By: #### 1 [id number] #### [facility] [address] [place] [address] Potassium [Moles/Vol] 3.8 mmol/L Normal 3.5-5.3 [facility] Comment on above: Performed By: #### 1 [id number] #### [facility] [address] [place] [address] Sodium [Moles/Vol] 137 mmol/L Normal 135-145 [facility] Comment on above: Performed By: #### 1 [id number] #### [facility] [address] [place] [address] Blood Bank ID#on 12-30-2022 BBID# [id number] Invalid Interpretation Code [facility] Comment on above: Performed By: #### 1 [id number] #### [facility] [address] [place] [address] CBC w/ Auto Diffon 3 Erythrocyte distribution width (RBC) [Ratio] 14.1 % Normal 10.9-14.2 [facility] Comment on above: Performed By: #### 1 [id number], [id number], [id number], [id number], [id number] ####[facility] [address] [place] [address] Hematocrit (Bld) [Volume fraction] 31.5 % Low 34.0-46.0 [facility] Comment on above: Performed By: #### 1 [id number], [id number], 2998946, [id number], 5001400 ####[facility] [address] [place] [address] Hemoglobin (Bld) [Mass/Vol] 10.0 g/dL Low 12.0-16.0 [facility] Comment on above: Performed By: #### 1 [id number], [id number], 8681712, 2566048, [id number] ####[place] [address] [place] [id number] MCH (RBC) [Entitic mass] 25.3 pg Low 27.0-34.0 [facility] Comment on above: Performed By: #### 1 [id number], [id number], 0715756, 8291280, 7259098 ####[place] [address] MCHC (RBC) [Mass/Vol] 31.8 g/dL Normal 31.4-36.0 [facility] Comment on above: Performed By: #### 1 [id number], [id number], 8269578, 4380413, 5902965 ####[place] [address] MCV (RBC) [Entitic vol] 79.6 fL Low 80.0-100.0 [facility] Comment on above: Performed By: #### 1 [id number], 21255015, 7174605, 2518820, 6886589 ####[place] [address] Platelet mean volume (Bld) [Entitic vol] 7.7 fL Normal 6.4-10.8 [facility] Comment on above: Performed By: #### 1 [id number], [id number], 2303226, 2896925, 9019893 ####[place] [address] Platelets (Bld) [#/Vol] 264.0 E9/L Normal 150.0-500.0 [facility] Comment on above: Performed By: #### 1 [id number], 04554284, 0412367, 7567064, 8134975 ####[address] [address] RBC (Bld) [#/Vol] 4.0 E12/L Low 4.3-5.9 [facility] Comment on above: Performed By: #### 1 [id number], 82610103, 8958146, 3860484, 0238783 ####[facility] [address] [place] [address] WBC corrected for nucl RBC Auto (Bld) [#/Vol] 5.7 E9/L Normal 4.0-11.0 [facility] Comment on above: Performed By: #### 1 [id number], 62723514, 6160047, 5359220, 1208957 ####[facility] [address] [place] [address] CHEMISTRYOrdered By: SYSTEM SYSTEM on 12-30-2022 Anion gap [Moles/Vol] 12 mmol/L Normal 6 - 16 mEq/L [facility] Remisol Calcium [Mass/Vol] 8.6 mg/dL Low 8.9 - 11. 1 mg/dL [facility] Remisol Chloride [Moles/Vol] 103 mmol/L Normal 101 - 1 11 mmol/L [facility] Remisol CO2 [Moles/Vol] 26 mmol/L Normal 21 - 31 mmol/L [facility] Remisol Creatinine [Mass/Vol] 0.9 mg/dL Normal 0.5 - 1.3 mg/dL [facility] Remisol GFR/1.73 sq M.predicted among blacks MDRD (S/P/Bld) [Vol rate/Area] mL/min/1.73 m2 Normal >=59mL/min/1 .73 m2 [facility] S GFR/1.73 sq M.predicted among non-blacks MDRD (S/P/Bld) [Vol rate/Area] mL/min/1.73 m2 Normal >=59mL/min/1 .73 m2 [facility] Chem S Glucose [Mass/Vol] 105 mg/dL Normal 55 - 199 mg/dL [facility] Remisol Potassium [Moles/Vol] 3.8 mmol/L Normal 3.5 - 5.3 mmol/L [facility] Sodium [Moles/Vol] 137 mmol/L Normal 135 - 145 mmol/L [facility] Urea nitrogen [Mass/Vol] 17 mg/dL Normal 5 - 21 mg/dL [facility] Urea nitrogen/Creatinine [Mass ratio] 19 mg/mg Normal 10 - 20 [facility]isol COAGULATIONOrdered By: Courtney Case on 12-30-2022 aPTT Coag (PPP) [Time] 31.5 s Normal 25.1 - 36.5 second(s) [facility] Auto Coag INR Coag (PPP) [Relative time] 1.0 {INR} Invalid Interpretation Code [facility] Auto Coag PT Coag (PPP) [Time] 11.7 s Normal 9.4 - 1 2.5 second(s) [facility] Auto Coag Consent for Treatmenton Consent for Treatment [id number] D:127 Normal [facility] ED Note-Physicianon 12-30-19 ED Note-Physician Basic Information Time Seen: Edin Bermudez M.D. 12/30/2022 08:22 Chief Complaint pt rorts heavy vaginal bleeding and come cramping. states she had a baby a month ago. denies any other symtpoms. no complications, vaginal . History of Present Illness The patient is 27-year-old female who presented to the emergency room with vaginal bleeding. The patient states a month ago she gave to her son. It was vaginal delivery. The patient states she continued to have spotting after the delivery until yesterday her bleeding got worse. The patient is complaining of lower pelvic cramping. The patient denies passing any tissues. She states her bleeding is worse than her menstrual cycle. The patient states she has not started having sex yet. She denies any fever, denies any chills. She denies any burning with urination. The patient denies any other associated symptoms. Review of Systems Additional ROS info: Except as noted in the above Review of Systems and in the History of Present Illness all other systems have been reviewed and are negative or noncontributory. Physical Exam Vitals & Measurements T: 36.8 ?C(Oral) HR: 89(Monitored) RR: 14 BP: 143/103 SpO2: 96% HT: 157 cm WT: 66 kg BMI: 26.78 General: alert, no acute distress Skin: warm, dry Head: no trauma, normocephalic Neck: Trachea midline Eye: normal conjunctiva, sclera clear Cardiovascular: regular rate and rhythm Respiratory: Lungs CTA, respirations non labored, breath sounds equal Gastrointestinal: soft, non distended, mild tenderness in the suprapubic region, no guarding Extremities: no deformity, no trauma Neurological: Alert and oriented, speech normal, no focal neuro deficits Psychiatric: cooperative, affect appropriate for age Medical Decision Making MEDICAL DECISION MAKING Number and Complexity of Problems Differential Diagnosis: [] MDM Data External documents reviewed: [] My EKG interpretation: [] My CT interpretation: [] My X-ray interpretation: [] My Ultrasound interpretation: [] Decision rules/scores evaluated: [] Discussed with: Dr. Pop Treatment and Disposition ED Course: The patient presented with vaginal bleeding post delivery. Blood work reviewed. The ultrasound of the pelvis shows retained products. The case was discussed with Dr. Pop who will take patient to the operating room for D&C. Shared decision making: [] Code status: [] Assessment/Plan 1. Retained products of conception with hemorrhage (O72.2: Delayed and secondary hemorrhage) Orders: ABO/Rh ABO/Rh History Check Antibody Screen Automated Diff Basic Metabolic Panel Blood Bank ID# CBC w/ Auto Diff eGFR Extra SST Tube PT & PTT Saline Lock Insert UA With Cult Reflex US Pelvis Non-OB Complete Disposition Plan Patient Discharge Condition Stable Discharge Disposition Taken to the operating room Discharge Prescription List Prescriptions No active prescription medications Follow-up With When Contact Information CRUZ RODRÍGUEZ In 3 days 01/02/2023 EST [address] [place] [address]- Business (1) Additional Instructions: Problem List/Past Medical History Ongoing Abnormal uterine bleeding Dysmenorrhea Headache Microscopic hematuria Nocturia Postinfective urethral stricture in female Recurrent UTI UTI symptoms Historical No qualifying data Procedure/Surgical History Cystoscopy (02/28/2021), RIGHT SHOULDER OPEN DISTAL CLAVICLE EXCISION (08/07/2018), Appendectomy, Betamethasone, Colonoscopy. Medications Inpatient No active inpatient medications Home cyclobenzaprine 10 mg Tab, 10 mg= 1 tab(s), Oral, TID, PRN, Not taking cyclobenzaprine 10 mg Tab, 10 mg= 1 tab(s), Oral, TID, PRN, Not taking cyproheptadine 4 mg Tab, Oral, TID, Not taking hydrOXYzine hydrochloride 25 mg Tab, Oral, QID, Not taking ibuprofen 600 mg Tab, 600 mg= 1 tab(s), Oral, q6hr, Not taking Imitrex 100 mg Tab, Oral, Once, Not taking Levsin 0.125 mg SL Tab, 0.125 mg= 1 tab(s), Oral, q6hr, 1 refills, Not taking naproxen 500 mg oral enteric coated tablet, 500 mg= 1 tab(s), Oral, BID, Not taking naproxen 500 mg Tab, 500 mg= 1 tab(s), Oral, BID, Not taking Multivitamins with Vitamin B Complex, Vitamin C, Minerals and L-Methylfolate oral capsule, 1 cap(s), Oral, Daily Pyridium 200 mg Tab, 200 mg= 1 tab(s), Oral, TID, Not taking Vitamin D2 2000 intl units oral capsule, Oral, Daily, Not taking Zofran 4 mg Tab, Oral, q6hr, PRN, Not taking Allergies No Known Medication Allergies Social History Alcohol - Denies Alcohol Use, 11/27/2022 Employment/School 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 Never Smokeless Tob (more content not included)... Normal [facility] Comment on above: Result Comment: Elec tronically Signed By: Lara Murphy, Edin Friend\.br\Date and Time Signed: 12/30/22 13:18 EST HEMATOLOGYOrdered By: SYSTEM SYSTEM on 12-30-2022 Basophils/100 WBC (Bld) 1.2 % Normal 0.0 - 2.0 % [facility] HemeAutoSS Basophils/Leukocytes Auto (Bld) [Pure # fraction] 0.1 E9/L Normal 0.0 - 0.2 E9/L [facility]eAutoSS Eosinophils/100 WBC (Bld) 4.1 % Normal 0.0 - 8.0 % [facility]eAutoSS Eosinophils/Leukocyte s Auto (Bld) [Pure # fraction] 0.2 E9/L Normal 0.0 - 0.5 E9/L [facility]eAutoSS Lymphocytes/100 WBC (Bld) 40.5 % Normal 14.0 - 50.0 % [facility] HemeAutoSS Lymphocytes/Leukocyte s Auto (Bld) [Pure # fraction] 2.3 E9/L Normal 1.0 - 4.0 E9/L [facility]eAutoSS Monocytes/100 WBC (Bld) 7.6 % Normal 4.0 - 14.0 % [facility]eAutoSS Monocytes/Leukocytes Auto (Bld) [Pure # fraction] 0.4 E9/L Normal 0.2 - 1.0 E9/L [facility] Neutrophils/100 WBC (Bld) 46.6 % Normal 36.0 - 75.0 % [facility] Neutrophils/Leukocyte s Auto (Bld) [Pure # fraction] 2.6 E9/L Normal 2.0 - 7.5 E9/L [facility] HEMATOLOGYOrdered By: Courtney elizabeth on 12-30-2022 Erythrocyte distribution width (RBC) [Ratio] 14.1 % Normal 10.9 - 14.2 % [facility] Hematocrit (Bld) [Volume fraction] 31.5 % Low 34.0 - 46.0 % [facility] Hemoglobin (Bld) [Mass/Vol] 10.0 g/dL Low 12.0 - 16.0 gm/dL [facility] MCH (RBC) [Entitic mass] 25.3 pg Low 27.0 - 34.0 pg [facility] MCHC (RBC) [Mass/Vol] 31.8 g/dL Normal 31.4 - 36.0 gm/dL [facility] MCV (RBC) [Entitic vol] 79.6 fL Low 80.0 - 100.0 fL [facility]Auto[facility] Platelet mean volume (Bld) [Entitic vol] 7.7 fL Normal 6.4 - 10.8 fL [facility]eAuto[facility] Platelets (Bld) [#/Vol] 264.0 E9/L Normal 150.0 - 500.0 E9/L [facility]eAuto[facility] RBC (Bld) [#/Vol] 4.0 E12/L Low 4.3 - 5.9 E12/L [facility] WBC corrected for nucl RBC Auto (Bld) [#/Vol] 5.7 E9/L Normal 4.0 - 11.0 E9/L [facility] Inpatient Patient Summaryon 12-30-2022 Inpatient Patient Summary [address] [address] [facility] Clinical Discharge Instructions PERSON INFORMATION Name: DRISS COPE [facility]#:[id number] PHYSICIANS Admitting Physician: Edin Bermudez M.D. Attending Physician: Edin Bermudez M.D. PCP: NICK BLACKWELL, CRUZ Discharge Diagnosis: 1:Retained products of conception with hemorrhage Comment: PATIENT EDUCATION INFORMATION Instructions: BRIDGE DESIGN ENGINEER - Post D&C, Hysteroscopy, LEEP or Essure/Laparoscopy (Custom); Post Op Patient Instructions - FT (Custom) (Custom); BRIDGE DESIGN ENGINEER - Post D&C, Hysteroscopy, LEEP or Essure/Laparoscopy (Custom) Medication Leaflets: Follow up: With: Address: When: Cruz Meza [address] [place] [address] Business (1) Comments: follow up in 1-2 weeks With: Address: When: CRUZ RODRÍGUEZ [address] [place] [address] Business (1) In 3 days 01/02/2023 MEDICATION LIST Medications to Continue with No Changes Other Medications cyclobenzaprine (cyclobenzaprine 10 mg Tab) 1 Tablets By Mouth 3 times a day as needed for spasm. Refills: 0. cyclobenzaprine (cyclobenzaprine 10 mg Tab) 1 Tablets By Mouth 3 times a day as needed Spasm. Refills: 0. cyproheptadine (cyproheptadine 4 mg Tab) By Mouth 3 times a day. ergocalciferol (Vitamin D2 2000 intl units oral capsule) By Mouth every day. hydrOXYzine (hydrOXYzine hydrochloride 25 mg Tab) By Mouth 4 times a day. hyoscyamine (Levsin 0.125 mg SL Tab) 1 Tablets By Mouth every 6 hours. Refills: 1. ibuprofen (ibuprofen 600 mg Tab) 1 Tablets By Mouth every 6 hours. Refills: 0. multivitamin, ( Multivitamins with Vitamin B Complex, Vitamin C, Minerals and L-Methylfolate oral capsule) 1 Capsules By Mouth every day. naproxen (naproxen 500 mg oral enteric coated tablet) 1 Tablets By Mouth 2 times a day. Refills: 0. naproxen (naproxen 500 mg Tab) 1 Tablets By Mouth 2 times a day. Take one tab by mouth two times a day. Refills: 0. ondansetron (Zofran 4 mg Tab) By Mouth every 6 hours as needed Nausea. phenazopyridine (Pyridium 200 mg Tab) 1 Tablets By Mouth 3 times a day. Take one tab by mouth three times a day for three days. Refills: 0. sumatriptan (Imitrex 100 mg Tab) By Mouth Once. Comment: [facility] Main OR PACU I [facility] Main OR PACU I Record PACU Phase I Docum ent Type FT Summary Primary Physician: Nathan POP DO Finalized Date/Time: 12/30/22 13:56:42 Pt. Name: DRISS COPE/Sex: 1995 Female Med Rec #: [id number] Physician: Edin Bermudez M.D. Financial #: [id number] Pt. Type: O Room/Bed: / Admit/Disch: 12/30/22 08:13:06 - Institution: Case Times PACU I FT Pre-Care Text: Identifies barriers to communication and implements measures to provide psychological support Develops individualized plan of care, and ensures continuity of care Maintains patient's dignity and privacy, and maintains patient confidentiality Identifies and reports philosophical, cultural, and spiritual beliefs and values Identifies individual values and wishes concerning care Implements aseptic technique, and administers prescribed antibiotic therapy and immunizing agents as ordered Evaluates postoperative tissue perfusion Implements thermoregulation measures, and monitors body temperature Evaluates postoperative respiratory status Evaluates postoperative cardiac status Evaluates postoperative neurological status Assesses pain control, collaborated in initiating patient-controlled analgesia and implements alternative methods of pain control Verifies allergies, administers prescribed medications and solutions, evaluates response to medications Entry 1 In PACU I 12/30/22 13:06:00 Discharge from PACU 12/30/22 13:36:00 I Outcomes Met? Yes Last Modified By: Ligia Bowden RN 12/30/22 13:56:27 Post-Care Text: The patient demonstrates knowledge of the expected response to the operative or invasive procedure The patient's care is consistent with the individualized perioperative plan of care The patient's right to privacy is maintained The patient's value system, lifestyle, ethnicity, and culture are considered, respected, and incorporated into the perioperative plan of care The patient participates in decisions affecting his or her perioperative plan of care The patient is free from signs and symptoms of infection The patient has wound/tissue perfusion consistent with or improved from baseline levels established preoperatively The patient is at or returning to normothermia at the conclusion of the immediate postoperative period The patient's respiratory function is consistent with or improved from baseline levels established preoperatively The patient's cardiovascular status is consistent with or improved from baseline levels established preoperatively The patient's cardiovascular status is consistent with or improved from baseline levels established preoperatively The patient demonstrates and/or reports adequate pain control throughout the perioperative period The patient received appropriate medication(s), safely administered during the perioperative period Acuity Level PACU I FT Entry 1 Start Time 12/30/22 13:06:00 Stop Time 12/30/22 13:36:00 Acuity Level Acuity Level I Last Modified By: Ligia Bowden RN 12/30/22 13:56:40 Finalized By: Ligia Bowden RN Document Signatures Signed By: Ligia Bowden RN 12/30/22 13:56 [facility] Main OR PACU II [facility] Main OR PACU II Record PACU Phase II Document Type FT Summary Primary Physician: Nathan POP DO Finalized Date/Time: 12/30/22 15:18:57 Pt. Name: DRISS COPE/Sex: 1995 Female Med Rec #: [id number] Physician: Edin Bermudez M.D. Financial #: [id number] Pt. Type: O Room/Bed: / Admit/Disch: 12/30/22 08:13:06 - Institution: Case Times PACU II FT Pre-Care Text: Identifies barriers to communication and implements measures to provide psychological support and determines knowledge level Develops individualized plan of care, and ensures continuity of care Maintains patient's dignity and privacy, and maintains patient confidentiality Identifies and reports philosophical, cultural, and spiritual beliefs and values Identifies individual values and wishes concerning care administers prescribed antibiotic therapy and immunizing agents as ordered, Evaluates postoperative tissue perfusion Implements thermoregulation measures, and monitors body temperature Evaluates postoperative respiratory status Evaluates postoperative cardiac status Evaluates postoperative neurological status Assesses pain control, collaborated in initiating patient-controlled analgesia and implements alternative methods of pain control Verifies allergies, administers prescribed medications and solutions, evaluates response to medications Entry 1 In PACU II 12/30/22 13:36:00 Discharge from PACU 12/30/22 15:00:00 II Outcomes Met? Yes Last Modified By: Ligia Bowden RN 12/30/22 15:18:49 Post-Care Text: The patient demonstrates knowledge of the expected response to the operative or invasive procedure The patient's care is consistent with the individualized perioperative plan of care The patient's right to privacy is maintained The patient's value system, lifestyle, ethnicity, and culture are considered, respected, and incorporated into the perioperative plan of care The patient participates in decisions affecting his or her perioperative plan of care. The patient is free from signs and symptoms of infection The patient has wound/tissue perfusion consistent with or improved from baseline levels established preoperatively The patient is at or returning to normothermia at the conclusion of the immediate postoperative period The patient's respiratory function is consistent with or improved from baseline levels established preoperatively The patient's cardiovascular status is consistent with or improved from baseline levels established preoperatively The patient's neurological status is consistent with or improved from baseline levels established preoperatively The patient demonstrates and/or reports adequate pain control throughout the perioperative period The patient received appropriate medication(s), safely administered during the perioperative period Finalized By: Ligia Bowden RN Document Signatures Signed By: Ligia Bowden RN 12/30/22 15:18 [facility] Main OR Preoperative Recordo n 12-30-2022 Main OR Preoperative Record Holding Area Document Type FT Summary Primary Physician: Nathan POP DO Finalized Date/Time: 12/30/22 14:07:12 Pt. Name: DRISS COPE/Sex: 1995 Female Med Rec #: [id number] Physician: Edin Bermudez M.D. Financial #: [id number] Pt. Type: O Room/Bed: / Admit/Disch: 12/30/22 08:13:06 - Institution: Case Times Holding FT Pre-Care Text: Verifies consent for planned procedure, identifies individual values and wishes concerning care, includes family members in perioperative teaching Secures patient's records' belongings, and valuables, maintains patient's dignity and privacy, and maintains patient confidentiality Entry 1 In Holding 12/30/22 12:10:00 Outcomes Met? Yes Last Modified By: Danny Cortez RN 12/30/22 13:48:24 Post-Care Text: The patient participates in decisions affecting his or her perioperative plan of care The patient's right to privacy is maintained Surgery Checklist FT Entry 1 Patient Birthday, Blood Band, Procedure Blood Consent, History Identification: ID Band Check, Patient Verification: and Physical, Surgical Participation Consent, With Family NPO after Midnight: Yes Date/Time: 12/30/22 12:10:00 Preop Results Labs Personal Items: Glasses, Jewelry Reviewed: Personal Items Clothes, underwear Complaints of Pain: No Comment: placed inside the plastic bag, ring x 1 Operative Site n/a Availability Equipment Marking: Verified: Does Patient Smoke No Patient states Yes Comment - Adult Yes - fiance present postop adult Supervision supervision available Case Cancelled in No Holding Area see comments below for reason Last Modified By: Danny Cortez RN 12/30/22 14:07:08 Finalized By: Danny Cortez RN Document Signatures Signed By: Danny Cortez RN 12/30/22 13:50 Danny Cortez RN 12/30/22 14:07 [facility] Monitor Recordon 12-30-2022 Monitor Record [id number] CD:127 [facility] Monitor Record [id number] CD:127 [facility] Outpatient Surgery Discharge Instructionon 12-30-2022 Outpatient Surgery Discharge Instruction [address] [address] Patient Discharge Instructions PERSON INFORMATION Name: DRISS COPE Date of : 1995 Current Date: 12/30/2022 13:59:53 PHYSICIANS Admitting Physician: Edin Bermudez M.D. Discharge Diagnosis: 1:Retained products of conception with hemorrhage DRISS COPE has been given the following list of follow-up instructions, prescriptions, and patient education materials: PATIENT FOLLOW-UP INFORMATION Diet: Regular Discharge Activity: Arrange for a responsible adult supervision for 24 hours, Expect minimal amount of drainage and/or bleeding Discharge Restrictions: No driving for 24 hrs, Do not operate machinery or tools, Do not make important decisions for 24 hours, Do not drink alcoholic beverages for 24 hours Call Your Doctor For: Persistent or heavy bleeding, Temperature above 101.5 degrees, Severe pain at the operative site, Persistent vomiting Additional Instructions: may have some light bleeding for next few weeks IF UNABLE TO CONTACT YOUR PHYSICIAN AND YOU FEEL IT IS AN EMERGENCY, GO TO THE NEAREST EMERGENCY ROOM OR CALL 911 I, DRISS COPE, have received the attached patient education materials/instructions and have verbalized understanding: May we do a follow up call? Yes No I was present when discharge instructions were given Patient Signature Date Clinican/Nurse Signature _ Date Follow up: With: Address: When: [facility] [address], [place] [address] Business (1) Comments: follow up in 1-2 weeks With: Address: When: [facility] [address] [place] [address] Business (1) In 3 days 01/02/2023 Pharmacy Information: You may receive a survey from [employer] asking you to rate your care experience. Your feedback is important and will help us understand what we do well and how we can improve the quality of care we provide to you, your loved ones and our community. It?s an honor to serve you. Thank you for choosing [facility] HERE ARE THE MEDICATION CHANGES THAT OCCURRED DURING YOUR HOSPITAL STAY Medications to Continue with No Changes Other Medications cyclobenzaprine (cyclobenzaprine 10 mg Tab) 1 Tablets By Mouth 3 times a day as needed for spasm. Refills: 0. cyclobenzaprine (cyclobenzaprine 10 mg Tab) 1 Tablets By Mouth 3 times a day as needed Spasm. Refills: 0. cyproheptadine (cyproheptadine 4 mg Tab) By Mouth 3 times a day. ergocalciferol (Vitamin D2 2000 intl units oral capsule) By Mouth every day. hydrOXYzine (hydrOXYzine hydrochloride 25 mg Tab) By Mouth 4 times a day. hyoscyamine (Levsin 0.125 mg SL Tab) 1 Tablets By Mouth every 6 hours. Refills: 1. ibuprofen (ibuprofen 600 mg Tab) 1 Tablets By Mouth every 6 hours. Refills: 0. multivitamin, ( Multivitamins with Vitamin B Complex, Vitamin C, Minerals and L-Methylfolate oral capsule) 1 Capsules By Mouth every day. naproxen (naproxen 500 mg oral enteric coated tablet) 1 Tablets By Mouth 2 times a day. Refills: 0. naproxen (naproxen 500 mg Tab) 1 Tablets By Mouth 2 times a day. Take one tab by mouth two times a day. Refills: 0. ondansetron (Zofran 4 mg Tab) By Mouth every 6 hours as needed Nausea. phenazopyridine (Pyridium 200 mg Tab) 1 Tablets By Mouth 3 times a day. Take one tab by mouth three times a day for three days. Refills: 0. sumatriptan (Imitrex 100 mg Tab) By Mouth Once. PATIENT EDUCATION INFORMATION Instructions: Instructions post D & C, hysteroscopy, LEEP or Essure/laparoscopy You can resume all normal activities within 24 hours following surgery. For 24 hours: no driving, making any important decisions, drinking alcohol ? and a responsible adult should stay with you today. Please refrain from intercourse, douches, and tampons for the next two weeks. You can expect some vaginal spotting, cramps, or light bleeding for a week and up to ten days after surgery. This is normal. If you are soaking a pad an hour or more frequently ? you need to call your doctor. Your first period may not be normal, but most women resume their normal cycles within a month or two. It is helpful for your doctor if you keep a written record of your bleeding following surgery. When abnormal bleeding persists for 2-3 cycles, please bring the record to your doctor. Return to the office for post-operative check, and to go over any biopsy results at your scheduled appointment; usually two weeks following surgery. If you are uncertain if an appointment has been made, please call the office. CALL THE DOCTOR if you have severe loida (more content not included)... [facility] PT & PTTon 12-30-2022 aPTT Coag (PPP) [Time] 31.5 second(s) Normal 25.1-36.5 [facility] Comment on above: Result Comment: Para meter 15 days - 4 weeks 1 - 5 months 6 - 11 months 1 - 5 years 6 - 10 years 11 - 17 years PTT Mean: 35.4 (27.6-45.6) Mean: 33.5 (24.8-40.7) Mean: 32.4 (25.1-40.7) Mean: 31.6 (24.0-39.2) Mean: 31.6 (26.9-38.7) Mean: 31.0 (24.6-38.4) Pediatric Reference ranges were obtained from a study by lex Coker al. prepared from 1437 samples obtained at 7 different centers using the same coagulation reagent and instrumentation [place] [facility] Currently there are no coagulation studies available worldwide for children to 14 days, and no normal ranges. Heparin therapeutic range (represented by Anti-Factor Xa activity of 0.2 - 0.4 U/mL) corresponds to PTT of 56.6 - 109.0 sec. Performed By: #### 1 [id number] #### [facility] [address] [place] [address] INR Coag (PPP) [Relative time] 1.0 {INR} Invalid Interpretation Code [facility] Comment on above: Result Comment: INR results are specifically intended to assess patients stabilized on long-term Anticoagulation therapy suggested INR?s ?Less Intensive Anticoagulation? 2.0 ? 3.0 Conventional Range 3.0 ? 4.5 Performed By: #### 1 [id number] #### [facility] [address] [place] [address] PT Coag (PPP) [Time] 11.7 second(s) Normal 9.4-12.5 [facility] Comment on above: Result Comment: 15 d ays - 4 weeks 1 - 5 months 6 -11 months 1- 5 years 6-10 years 11 -17 years Mean: 11.2 (9.5-12.6) Mean: 11.0 (9.7-12.8) Mean: 11.0 (9.8-13.0) Mean: 11.3 (9.9-13.4) Mean: 11.7 (10.0-14.6) Mean: 11.8 (10.0 - 14.1) Pediatric Reference ranges were obtained from a study by Javi Moore et al. prepared from 1437 samples obtained at 7 different centers using the same coagulation reagent and instrumentation [place] [facility]. Currently there are no coagulation studies available worldwide for children to 14 days, and no normal ranges. Performed By: #### 1 [id number] #### [facility] [address] [place] [address] Patient Education - Texton 0 12-30-2022 Patient Education - Text Instructions post D & C, hysteroscopy, LEEP or Essure/laparoscopy You can resume all normal activities within 24 hours following surgery. For 24 hours: no driving, making any important decisions, drinking alcohol ? and a responsible adult should stay with you today. Please refrain from intercourse, douches, and tampons for the next two weeks. You can expect some vaginal spotting, cramps, or light bleeding for a week and up to ten days after surgery. This is normal. If you are soaking a pad an hour or more frequently ? you need to call your doctor. Your first period may not be normal, but most women resume their normal cycles within a month or two. It is helpful for your doctor if you keep a written record of your bleeding following surgery. When abnormal bleeding persists for 2-3 cycles, please bring the record to your doctor. Return to the office for post-operative check, and to go over any biopsy results at your scheduled appointment; usually two weeks following surgery. If you are uncertain if an appointment has been made, please call the office. CALL THE DOCTOR if you have severe pain, heavy bleeding, or a temperature of 100.5 or higher. Resume your regular home medication schedule as soon as you are eating a regular diet. You can either take the prescribed medications as directed for pain, or you can take over the counter pain medication such as Motrin, as indicated on the package for pain or cramps. PLEASE CALL FOR ANY PROBLEMS Instructions post D & C, hysteroscopy, LEEP or Essure/laparoscopy You can resume all normal activities within 24 hours following surgery. For 24 hours: no driving, making any important decisions, drinking alcohol ? and a responsible adult should stay with you today. Please refrain from intercourse, douches, and tampons for the next two weeks. You can expect some vaginal spotting, cramps, or light bleeding for a week and up to ten days after surgery. This is normal. If you are soaking a pad an hour or more frequently ? you need to call your doctor. Your first period may not be normal, but most women resume their normal cycles within a month or two. It is helpful for your doctor if you keep a written record of your bleeding following surgery. When abnormal bleeding persists for 2-3 cycles, please bring the record to your doctor. Return to the office for post-operative check, and to go over any biopsy results at your scheduled appointment; usually two weeks following surgery. If you are uncertain if an appointment has been made, please call the office. CALL THE DOCTOR if you have severe pain, heavy bleeding, or a temperature of 100.5 or higher. Resume your regular home medication schedule as soon as you are eating a regular diet. You can either take the prescribed medications as directed for pain, or you can take over the counter pain medication such as Motrin, as indicated on the package for pain or cramps. PLEASE CALL FOR ANY PROBLEMS [facility] Progress Note-Physicianon Progress Note-Physician Patient: DRISS COPE Age: 27 years Sex: Female : 1995 Associated Diagnoses: None Author: Art Agustin MD Postoperative Information Postoperative disposition: Postoperative disposition: To PACU. Optimetrix number: Optimetrix number [id number]. Anesthetic utilized: General. Special techniques: Warming device. Health Status Problem list: All Problems Abnormal uterine bleeding / SNOMED CT 4681707052 / Confirmed Bony prominence / SNOMED CT 3318453724 / Confirmed right shoulder Dysmenorrhea / SNOMED CT 097657181 / Confirmed Headache / SNOMED CT 32527571 / Confirmed Microscopic hematuria / SNOMED CT 981042549 / Confirmed Migraine / SNOMED CT 59641488 / Confirmed Nocturia / SNOMED CT 437888167 / Confirmed Postinfective urethral stricture in female / SNOMED CT 8381065819 / Confirmed / SNOMED CT 527494119 / Confirmed Recurrent UTI / SNOMED CT 634482648 / Confirmed UTI symptoms / SNOMED CT 608885443 / Confirmed Physical Examination Vital Signs 12/30/2022 13:00 EST Heart Rate Monitored 100 bpm bpm Respiratory Rate 12 br/min br/min Systolic Blood Pressure 117 mmHg mmHg Diastolic Blood Pressure 76 mmHg mmHg SpO2 97 % % Pain Assessment: Controlled. General: Awake, Alert, Appropriate. Respiratory: Adequate air exchange. Cardiovascular: Stable. Neurological: Normal sensory function, Normal motor function. Assessment Anesthetic outcome No anesthetic complications noted. Adequate pain relief. Review / Management Condition: Stable. Plan Transfer/Discharge: Transfer/Discharge Discharge when meets criteria ( From PACU to Ambulatory Surgery Unit, and To home ). [facility] Comment on above: Result Comment: Elec tronically Signed By: Vamsi BLACKWELL, Art Ngo.br\Date and Time Signed: 12/30/22 13:12 EST Progress Note-Physician Patient: DRISS COPE Age: 27 years Sex: Female : 1995 Associated Diagnoses: None Author: Nathan POP DO Chief Complaint 12/30/2022 8:15 EST pt rorts heavy vaginal bleeding and come cramping. states she had a baby a month ago. denies any other symtpoms. no complications, vaginal . (Modified) History of Present Illness ultrasound revealed retained products of conception Review of Systems Constitutional: Negative. Cardiovascular: Negative. Gastrointestinal: Negative. Gynecologic: Negative. All other systems are negative Health Status Allergies: Allergic Reactions (All) No Known Medication Allergies, Allergies (1) Active Reaction No Known Medication Allergies None Documented Current medications: (Selected) Inpatient Medications Ordered HYDROmorphone 1 mg/mL injectable solution: 0.2 mg = 0.2 mL, Injection, IV Push, q2min PRN Pain for 10 dose(s), Stop date Limited # of times, Routine, Start date 12/30/22 11:43:00 EST, 12/30/22 11:43:00 EST Lactated Ringers IV Karina 1000 mL 1,000 mL: 1,000 mL, IV, 100 mL/hr, Routine, Start date 12/30/22 11:43:00 EST, 10 hour(s), Total volume (mL): 1,000, 66 kg, 1.7, m2 Phenergan 25 mg/mL Injection: 12.5 mg = 0.5 mL, Injection, IV Push, q2min PRN Other (see comment) for 2 dose(s), Stop date Limited # of times, Routine, Start date 12/30/22 11:43:00 EST, 12/30/22 11:43:00 EST Prescriptions Prescribed Levsin 0.125 mg SL Tab: 0.125 mg = 1 tab(s), Oral, q6hr, # 20 tab(s), Refills(s) 1, [facility]: [facility], 161, cm, 03/10/21 11:21:00 EDT, Height/Length Dosing, 56, kg, 03/10/21 11:21:00 EDT, Weight Dosing Pyridium 200 mg Tab: 200 mg = 1 tab(s), Oral, TID, Take one tab by mouth three times a day for three days, # 9 tab(s), Refills(s) 0, [facility]acy: [facility], 157, cm, 03/04/21 7:22:00 EDT, Height/Length Dosing, 52, kg, 03/04/21 7:22:00 EDT, Weight Dosing cyclobenzaprine 10 mg Tab: 10 mg = 1 tab(s), Oral, TID, PRN Spasm, # 12 tab(s), Refills(s) 0 cyclobenzaprine 10 mg Tab: 10 mg = 1 tab(s), Oral, TID, PRN for spasm, # 30 tab(s), Refills(s) 0, [facility]: [facility], 157, cm, 01/23/22 7:20:00 EST, Height/Length Dosing, 55, kg, 01/23/22 7:20:00 EST, Weight Dosing ibuprofen 600 mg Tab: 600 mg = 1 tab(s), Oral, q6hr, # 40 tab(s), Refills(s) 0, [facility]: [facility], 157, cm, 01/23/22 7:20:00 EST, Height/Length Dosing, 55, kg, 01/23/22 7:20:00 EST, Weight Dosing naproxen 500 mg Tab: 500 mg = 1 tab(s), Oral, BID, Take one tab by mouth two times a day, # 14 tab(s), Refills(s) 0, [facility]: [facility], 157, cm, 03/04/21 7:22:00 EDT, Height/Length Dosing, 52, kg, 03/04/21 7:22:00 EDT, Weight Dosing naproxen 500 mg oral enteric coated tablet: 500 mg = 1 tab(s), Oral, BID, # 28 tab(s), Refills(s) 0 Documented Medications Documented Imitrex 100 mg Tab: mg tab(s), Oral, Once, Refills(s) 0 Multivitamins with Vitamin B Complex, Vitamin C, Minerals and L-Methylfolate oral capsule...: 1 cap(s), Oral, Daily, 30 cap(s), Refill(s) 0 Vitamin D2 2000 intl units oral capsule: Oral, Daily, Refills(s) 0 Zofran 4 mg Tab: 1 tab(s), Oral, q6hr, PRN Nausea, # 8, Refills(s) 0 cyproheptadine 4 mg Tab: mg tab(s), Oral, TID, Refills(s) 0 hydrOXYzine hydrochloride 25 mg Tab: mg tab(s), Oral, QID, Refills(s) 0, Home Medications (13) Active cyclobenzaprine 10 mg Tab 10 mg = 1 tab(s), PRN, Oral, TID cyclobenzaprine 10 mg Tab 10 mg = 1 tab(s), PRN, Oral, TID cyproheptadine 4 mg Tab , Oral, TID hydrOXYzine hydrochloride 25 mg Tab , Oral, QID ibuprofen 600 mg Tab 600 mg = 1 tab(s), Oral, q6hr Imitrex 100 mg Tab , Oral, Once Levsin 0.125 mg SL Tab 0.125 mg = 1 tab(s), Oral, q6hr naproxen 500 mg oral enteric coated tablet 500 mg = 1 tab(s), Oral, BID naproxen 500 mg Tab 500 mg = 1 tab(s), Oral, BID Multivitamins with Vitamin B Complex, Vitamin C, Minerals and L-Methylfolate oral capsule 1 cap(s), Oral, Daily Pyridium 200 mg Tab 200 mg = 1 tab(s), Oral, TID Vitamin D2 2000 intl units oral capsule , Oral, Daily Zofran 4 mg Tab 1, PRN, Oral, q6hr Problem list: All Problems Abnormal uterine bleeding / SNOMED CT 6871368146 / Confirmed Bony prominence / SNOMED CT 6513464617 / Confirmed right shoulder Dysmenorrhea / SNOMED CT 932843649 / Confirmed Headache / SNOMED CT 79192891 / Confirmed Microscopic hematuria / SNOMED CT 655063695 / Confirmed Migraine / SNOMED CT 00449165 / Confirmed Nocturia / SNOMED CT 543183377 / Confirmed Postinfective urethral 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 [facility] Comment on above: Result Comment: Elec tronically Signed By: Nathan POP DO\Date and Time Signed: 12/30/22 13:00 EST Progress Note-Physician Patient: DRISS COPE Age: 27 years Sex: Female : 1995 Associated Diagnoses: None Author: Art Agustin MD Preoperative Information Anesthesia Preop Info: Time patient last ate or drank 12/30/2022 09:30:00. Anesthesia history: Patient history: None. Family history+: None. Anesthesia results: Anesthesia results from flowsheet : Results 12/30/2022 8:43 EST WBC 5.7 E9/L RBC 4.0 E12/L LOW HGB 10.0 gm/dL LOW Hct 31.5 % LOW MCV 79.6 fL LOW MCH 25.3 pg LOW MCHC 31.8 gm/dL RDW 14.1 % Platelet 264.0 E9/L MPV 7.7 fL Neutro Auto 46.6 % Lymph Auto 40.5 % Bibb Auto 7.6 % Eos Auto 4.1 % Basophil Auto 1.2 % Neutro Absolute 2.6 E9/L Lymph Absolute 2.3 E9/L Bibb Absolute 0.4 E9/L Eos Absolute 0.2 E9/L Basophil Absolute 0.1 E9/L PT 11.7 second(s) INR 1.0 NA PTT 31.5 second(s) Glucose Lvl 105 mg/dL BUN 17 mg/dL Creatinine 0.9 mg/dL eGFR >60 mL/min/1.73 m2 eGFR AA >60 mL/min/1.73 m2 BUN/Creat Ratio 19 Sodium Lvl 137 mmol/L Potassium Lvl 3.8 mmol/L Chloride 103 mmol/L CO2 26 mmol/L AGAP 12 mEq/L Calcium Lvl 8.6 mg/dL LOW . Informed consent: Signed by patient. Including risks, benefits, and alternatives related to the: Anesthetic plan. Re-evaluation prior to induction: Vamsi MD, Art S.. Initial evaluation reviewed: No significant change. Review of Systems Eye: Negative. Ear/Nose/Mouth/Throat: Negative. Respiratory: Negative. Cardiovascular: Negative. Gastrointestinal: Negative. Genitourinary: Negative except as documented in history of present illness. Hematology/Lymphatics: Negative. Endocrine: Negative. Musculoskeletal: Negative. Neurologic: Negative. Health Status Allergies: Allergic Reactions (Selected) No Known Medication Allergies, Allergies (1) Active Reaction No Known Medication Allergies None Documented Current medications: (Selected) Inpatient Medications Ordered HYDROmorphone 1 mg/mL injectable solution: 0.2 mg = 0.2 mL, Injection, IV Push, q2min PRN Pain for 10 dose(s), Stop date Limited # of times, Routine, Start date 12/30/22 11:43:00 EST, 12/30/22 11:43:00 EST Lactated Ringers IV Karina 1000 mL 1,000 mL: 1,000 mL, IV, 100 mL/hr, Routine, Start date 12/30/22 11:43:00 EST, 10 hour(s), Total volume (mL): 1,000, 66 kg, 1.7, m2 Phenergan 25 mg/mL Injection: 12.5 mg = 0.5 mL, Injection, IV Push, q2min PRN Other (see comment) for 2 dose(s), Stop date Limited # of times, Routine, Start date 12/30/22 11:43:00 EST, 12/30/22 11:43:00 EST Prescriptions Prescribed Levsin 0.125 mg SL Tab: 0.125 mg = 1 tab(s), Oral, q6hr, # 20 tab(s), Refills(s) 1, [facility]: [facility], 161, cm, 03/10/21 11:21:00 EDT, Height/Length Dosing, 56, kg, 03/10/21 11:21:00 EDT, Weight Dosing Pyridium 200 mg Tab: 200 mg = 1 tab(s), Oral, TID, Take one tab by mouth three times a day for three days, # 9 tab(s), Refills(s) 0, [facility]: [facility], 157, cm, 03/04/21 7:22:00 EDT, Height/Length Dosing, 52, kg, 03/04/21 7:22:00 EDT, Weight Dosing cyclobenzaprine 10 mg Tab: 10 mg = 1 tab(s), Oral, TID, PRN Spasm, # 12 tab(s), Refills(s) 0 cyclobenzaprine 10 mg Tab: 10 mg = 1 tab(s), Oral, TID, PRN for spasm, # 30 tab(s), Refills(s) 0, [facility]: [facility], 157, cm, 01/23/22 7:20:00 EST, Height/Length Dosing, 55, kg, 01/23/22 7:20:00 EST, Weight Dosing ibuprofen 600 mg Tab: 600 mg = 1 tab(s), Oral, q6hr, # 40 tab(s), Refills(s) 0, [facility]: [facility], 157, cm, 01/23/22 7:20:00 EST, Height/Length Dosing, 55, kg, 01/23/22 7:20:00 EST, Weight Dosing naproxen 500 mg Tab: 500 mg = 1 tab(s), Oral, BID, Take one tab by mouth two times a day, # 14 tab(s), Refills(s) 0, [facility]: [facility], 157, cm, 03/04/21 7:22:00 EDT, Height/Length Dosing, 52, kg, 03/04/21 7:22:00 EDT, Weight Dosing naproxen 500 mg oral enteric coated tablet: 500 mg = 1 tab(s), Oral, BID, # 28 tab(s), Refills(s) 0 Documented Medications Documented Imitrex 100 mg Tab: mg tab(s), Oral, Once, Refills(s) 0 Multivitamins with Vitamin B Complex, Vitamin C, Minerals and L-Methylfolate oral capsule...: 1 cap(s), Oral, Daily, 30 cap(s), Refill(s) 0 Vitamin D2 2000 intl units oral capsule: Oral, Daily, Refills(s) 0 Zofran 4 mg Tab: 1 tab(s), Oral, q6hr, PRN Nausea, # 8, Refills(s) 0 cyproheptadine 4 mg Tab: mg tab(s), Oral, TID, Refills(s) 0 hydrOXYzine hydrochloride 25 mg Tab: mg tab(s), Oral, QID, Refills(s) 0, Home Medications (13) Active cyclobenzaprine 10 mg Tab 10 mg = 1 tab(s), PRN, Oral, TID cyclobenzaprine 10 mg Tab 10 mg = 1 tab(s), PRN, Oral, TID cyproheptadine 4 mg Tab , Oral, TID hydrOXYzine hydrochloride 25 mg Tab , Oral, QID ibuprofen 600 mg Tab 600 mg = 1 tab(s), Oral, q6hr Imitrex 100 mg Tab , Oral, Once Levsin 0.125 mg SL Tab 0.125 mg = 1 tab(s), Oral, q6hr naproxen 500 mg oral enteric coated tablet 500 mg = 1 tab(s), Oral, BID naproxen 500 mg Tab 500 mg = 1 tab(s), Oral, BID Multivitamin (more content not included)... [facility] Comment on above: Result Comment: Elec tronically Signed By: Vamsi BLACKWELL, Art Barron\.br\Date and Time Signed: 12/30/22 11:46 EST UA With Cult Reflexon 2022 Bacteria LM Ql (Urine sed) TRACE [facility] Comment on above: Performed By: #### 1 [id number] #### [facility] [address] [place] [address] Bilirubin Ql (U) Negative Normal Negative [facility] Comment on above: Performed By: #### 1 [id number] #### [facility] [address] [place] [address] Clarity (U) CLEAR Normal [facility] Comment on above: Performed By: #### 1 [id number] #### [facility] [address] [place] [address] Color (U) YELLOW Normal Yellow [facility] Comment on above: Performed By: #### 1 [id number] #### [facility] [address] [place] [address] Epithelial cells.squamous LM.HPF (Urine sed) [#/Area] 0-2 Normal 0-2 [facility] Comment on above: Performed By: #### 1 [id number] #### [facility] [address] [place] [address] Glucose Test strip (U) [Mass/Vol] Negative Normal Negative [facility] Comment on above: Performed By: #### 1 [id number] #### [facility] [address] [place] [address] Hemoglobin Ql (U) 2+ Abnormal Negative [facility] Comment on above: Performed By: #### 1 [id number] #### [facility] [address] [place] [address] Ketones (U) [Mass/Vol] Negative Normal Negative [facility] Comment on above: Performed By: #### 1 [id number] #### [facility] [address] [place] [address] [facility].plasma/Lithiu m.RBC (Bld) [Mass ratio] 4-20 Normal 0-3 [facility] Comment on above: Performed By: #### 1 [id number] #### [facility] [address] [place] [address] Nitrite Ql (U) Negative Normal Negative [facility] Comment on above: Performed By: #### 1 [id number] #### [facility] [address] [place] [address] pH (U) 6.0 [pH] Invalid Interpretation Code 5.0-9.0 [facility] Comment on above: Performed By: #### 1 [id number] #### [facility] [address] [place] [address] Protein (U) [Mass/Vol] Negative Normal Negative [facility] Comment on above: Performed By: #### 1 [id number] #### [facility] [address] [place] [address] Specific gravity (U) [Rel density] 1.025 Invalid Interpretation Code 1.005-1.030 [facility] Comment on above: Performed By: #### 1 [id number] #### [facility] [address] [place] [address] Type of Urine collection method Clean Catch Normal [facility] Comment on above: Performed By: #### 1 [id number] #### [facility] [address] [place] [address] Urobilinogen Qn (U) 0.2 {Aspen'U}/dL Normal 0.0-1.0 [facility] Comment on above: Performed By: #### 1 [id number] #### [facility] [address] [place] [address] WBC Auto Ql (U) Negative Normal Negative [facility] Comment on above: Performed By: #### 1 [id number] #### [facility] [address] [place] [address] WBC LM.HPF (Urine sed) [#/Area] 0-5 Normal 0-5 [facility] Comment on above: Performed By: #### 1 [id number] #### [facility] [address] [place] [address] URINALYSISOrdered By: Courtney elizabeth on 12-30-2022 Bacteria LM Ql (Urine sed) Trace /HPF Normal Trace/HPF [facility] UA Auto SS Bilirubin Ql (U) Negative (12/30/22 8:53 AM) Normal Negative [facility] UA Auto SS Clarity (U) Clear (12/30/22 8:53 AM) Normal Clear [facility] Auto SS Color (U) Yellow (12/30/22 8:53 AM) Normal Yellow [facility] UA Auto SS Epithelial cells.squamous LM.HPF (Urine sed) [#/Area] 0-2 /HPF Normal 0-2/HPF [facility] UA Aut o SS Glucose Test strip (U) [Mass/Vol] Negative (12/30/22 8:53 AM) Normal Negative [facility] UA Auto SS Hemoglobin Ql (U) 2+ *ABN* (12/30/22 8:53 AM) Invalid Interpretation Code Negative [facility] UA Auto SS Ketones (U) [Mass/Vol] Negative (12/30/22 8:53 AM) Normal Negative [facility] UA Auto SS [facility].plasma/Lithiu m.RBC (Bld) [Mass ratio] 4-20 /HPF Normal 0-3/HPF [facility] UA Auto SS Nitrite Ql (U) Negative (12/30/22 8:53 AM) Normal Negative [facility] Auto SS pH (U) 6.0 *NA* (12/30/22 8:53 AM) Invalid Interpretation Code 5.0 - 9.0 [facility] UA Auto SS Protein (U) [Mass/Vol] Negative (12/30/22 8:53 AM) Normal Negative [facility] UA Auto SS Specific gravity (U) [Rel density] 1.025 *NA* (12/30/22 8:53 AM) Invalid Interpretation Code 1.005 - 1.030 [facility] UA Auto SS UA Spec Desc Clean Catch (12/30/22 8:53 AM) Normal [facility] UA Auto SS Urobilinogen Qn (U) 0.3285239 {Aspen'U}/dL Normal 0.0 - 1.0 EU/dL [facility]A Auto SS WBC Auto Ql (U) Negative (12/30/22 8:53 AM) Normal Negative [facility] UA Auto SS WBC LM.HPF (Urine sed) [#/Area] 0-5 /HPF Normal 0-5/HPF [facility] UA Auto SS US Pelvis Non-OB Completeon 12-30-2022 US Pelvis Non-OB Complete Exam Date/Time: 12/30/2022 09:58 EST Reason for Exam: Rule out retained products of conception;Abnormal vaginal bleeding Report IMPRESSION: THICKENED HETEROGENEOUS HYPERVASCULAR CENTRAL ENDOMETRIAL COMPLEX WITHIN THE FUNDUS SUGGESTING RETAINED PRODUCTS OF CONCEPTION AND/OR ENDOMETRITIS. EXAM: US Pelvis Non-OB Complete DATE: 12/30/2022 CLINICAL HISTORY: Abnormal vaginal bleeding, Rule out retained products of conception. Spontaneous vaginal delivery 4 weeks ago. COMPARISON: CT abdomen and pelvis 12/28/2021. TECHNIQUE: Transabdominal ultrasound was performed of the pelvis. FINDINGS: The central endometrial complex is thickened heterogeneous and hypervascular in the fundus, suggesting retained products of conception and/or endometritis. The uterus is normal in size and otherwise unremarkable in appearance. Both ovaries appear within normal limits for the patient's age group, with small follicles. Equivalent blood flow is noted to both ovaries on Doppler analysis. There is no significant free fluid, abnormal adnexal masses, or other findings of concern identified. The uterus is anteverted and mildly anteflexed in position, with measurements and estimated volume: Uterus Length: 9.1 cm Uterus Width: 6.0 cm Uterus Height: 4.5 cm Uterus Volume: 127.3 cm3 Endometrium Thickness: 1.6 cm The right ovary measurements and estimated volume: Right Ovary Length: 1.7 cm Right Ovary Width: 2.1 cm Right Ovary Height: 1.7 cm Report Right Ovary Volume: 3.1 cm3 The left ovary measurements and an estimated volume are: Left Ovary Length: 2.9 cm Left Ovary Width: 2.9 cm Left Ovary Height: 3.0 cm Left Ovary Volume: 13.1 cm3 FINAL REPORT Dictated: 12/30/2022 10:10 am Bruno Foy MD Signed (Electronic Signature): 12/30/2022 10:10 am Signed by: Bruno Foy MD Transcribed by: ELOISA Technologist: RAE Technical Comments Transabdominal Ultrasound Performed Normal [facility] eGFRon 12-30-2022 GFR/1.73 sq M.predicted among blacks MDRD (S/P/Bld) [Vol rate/Area] mL/min/{1.73_m2} Normal >=59 [facility] Comment on above: Order Comment: Order added by Discern Expert. Result Comment: eGFR is race adjusted. AA=. Performed By: #### 1 [id number] #### [facility] [address] [place] [address] GFR/1.73 sq M.predicted among non-blacks MDRD (S/P/Bld) [Vol rate/Area] mL/min/{1.73_m2} Normal >=59 [facility] Comment on above: Order Comment: Order added by Discern Expert. Result Comment: Volcanology Professor jose kidney disease could be indicated at eGFR's of less than 60 mL/min/1.73m2. Kidney failure is indicated at less than 15 mL/min/1.73m2. Performed By: #### 1 [id number] #### [facility] [address] [place] [address] Office Visiton 12-05-2022 Follow-up visit [id number] Aislinn Cope 1995 F Date Provider Department Center 12/05/2022 [facility] None Chart Close Cosign Required by: Opal Ross MD[VARUND] No family history on file Level of Service:78003 MO OFFICE/OUTPATIENT ESTABLISHED LOW MDM 20-29 MIN (GE,GC) Reason for Visit and Comments: Blood Pressure Check [299] Normal [facility] Progress Noteon 12-05-2022 Progress Note --- Attestation signed by Opal Ross MD at 12/05/2022 3:19 PM [facility]: This patient was seen in the [facility] by the resident. I reviewed and agree with the care provided by the resident during or immediately following the visit including the patient's medical history, the resident's finding in the physical exam, patient's diagnosis and treatment plan. Driss Cope 12/05/2022 27 y.o. Chief Complaint Patient presents with Blood Pressure Check HPI: Patient here today for BP check. She was diagnosed with PreEwSF due to persistent severe range BPs requiring acute treatment. She is s/p on 11/30/22. She received magnesium sulfate for seizure prophylaxis. She was started on Procardia XL 30 mg daily and her BPs were well controlled upon discharge. Today she is doing well. She denies headache, vision changes, chest pain, shortness of breath, RUQ pain, or increased swelling in extremities. Her pain is minimal. Her lochia is light. She is bottle feeding. She does not want any contraception at this time. There were no vitals filed for this visit. Gen: No acute distress Cardio: RRR Pulm: CTA b/l Abdomen: No RUQ tenderness Neuro: AOx3, no gross motor deficits Assessment and Plan: Diagnosis Plan 1. Pre-eclampsia, severe, delivered - BP 127/87 today - Antihypertensive agent: Procardia XL 30 mg daily - Return precautions reviewed - Patient will follow up in 4 weeks for visit Follow up in about 4 weeks (around 01/02/2023) for Visit . Normal [facility] Progress Note Vital signs BP 127/87 Weight 149.2lb Pulse 106 Temp 96.7 Normal [facility] Coding Summary.on 12-04-2022 Coding Summary. CD:[id number] Gh0 bWw+PGhlYWQ+DQ7VHTEzM66 vmUGbhG5MG6wROB2GKCPSBW TKYC2PGQ1onYB1IGiuK2Dqu iAv FifwmOEvBB93ZPc0RGW6aQk lXGlewF7xgAPnR1b0NwDpPI 67vJ00KQsgONKbBxT9TcSmg jsgbWFy X3jiOcKbbUHwJcc+PHRhYmx lIHdpZHRoPScxMDAlJyBzdH xlHB4cHi1jHCUlPEMisEgoo HNlOiBj u1ztDQLbBPbrSS3vhVltP0V rdAD3UMEfd3q3Kc68eHL+PH EkCZH6jRmhUKqxj572BlBnp 9cuSOL7 kQKyJZzcFJV9C13nk8O2ETL iNAJkEBL9sHS3xM8igVxfwk poH7BcaUOlRfD2UGZ6uVTga I0ejEvr iqodcQ8aHrm+J91FDM1YKSE DRE1RPig4T5DsVjpfrEW+PC 78WKGjGO06sAQmuHNan3lhy Pg2QmKf IAGvLMZ1sXrvZGxuy8GjVUN xA44ahHFzb0H1SKHsmQjmrH CyUgMiyRZ7qS0uKFxdprlmx 2hvdzsn Agpkf1fphu45qA48B08iOHl fCWOdRKO8YYOvKVYvkZdqmj 5lrU1eIw2+JJluf5anf4opw Do7NvVi XVNklmEwvSqbAZW4s7WyXg4 7D2UqxMzza5HaOif7al08mV Wvo0Y4bHW6PXdeUMBipM2hD WxlZnQ6 QUSaDrYutW19aBCiTSdnJi6 lmHcumMyiTD4cTOCvezitBC AmpF3nEACsjUZecTenKX6cF TBpbjtm b277HwYwZEO6ONAtiNHqP8R efG0lNyBqKXQbOSIfB9DneO QlCNocL530RVkvZrT6HJNbl zOfT1Js HKSzwHokCmI7n0H2Uz5Hz0X ykfbqIGX8VKjjJVIzFmU5Dj AeJgY9N6OsRhl9NGXsrMtiK Q0gL2Vj SOSephssdftugEI1SUKsMBL krC11qIAkFLypGm8kr8S3v2 82JTXcSPWokO87Yh8fmRfvW TBwdCBU cC8pdzjqn7bsoimeSdWxZIL bBCy4RBp1ONQahOhbDuRaJN L4ZzN6BOU5uQGecO3kcIdkp nlxaE6w Oyc+S98lxF2dDBR3QNF0phk qPYMhwcYcMI58VE74N5IvSt wvdGFibGU+PGRpdiBzdHlsZ W9zVlCj i0qmb2IzNNvgC2OxALVuNGl mRwv3BUDlKYH6cRJ7oG8nWB FcOZvng4V7kPE3G9QxplVhu o0ad4fh NOQoFHjvJ16hlLKoy2P2XMQ opFM3NBDiwVmuQpYkbL64Id c+BXElyWuri4AhYfunx7zaf 9dseJh4 QsXlVZBzhrLvuQniLNG2i6P uKw74J44uTGltHQUoXPEfPW XdUPRauLyfsm1clL7cWf8+P GNvbCB3 nVJ8zQ7aIQCyDmM3TDhfP88 3GlLwcXRtQumtf0vfz4lmpR u9RcNkNKYjtdAdaDxpZHE3b 5FlKo00 S97fTAkeMSJvJDBqAZHfAJN dhVuxbh5jcT1hRv7+PC9jb2 yvuz00kF85aQT+BYJsBYU4h WxlPSdw QZAotC0eAXycZvN6MHMyNzB lbU30nMGnPSudOa1rsAwjaV wzNU7sBPAqxsdxx127JjTdz 2xkIDEw oABxVSktTMJ7N14qb7R0UPO zXNRpTBD9cUG3vS7dhQyzoi ogbGVmdDsgdmVydGljYWwtY OjtI491 IHRvcDsnPlBhdGllbnQgTmF iYDh9U3SnHuq1WSFsoGozXO 2blNWqKDeiTk5tvPzudIiyP J7zDTDy pqglh825SkSub7stILIpwSB bXObhONV6Y26ol2M3AOFhNN ThCUT3nGV5oF8kyIwubxlfw GVmdDsg eyZygSjrTFetXTtxI402PWC nkPwqWzOhxvIcEPJbvHB6OE 90YN15rWEfm0E2lBL3S6McE GRpbmct auzajJI8GVJeQJPqdA29Sa6 quPkfFi3bVAPhGJS7DKFomH RlQ1MwbU7nIfXaFWVfWHSfF 3RleHQt KPesL091IOomSrY2GRQghwP vZ3HhQRFhpMszJcQ7x2Z9Rq 0NY4B2HC72QU11bZXqf1D4m WD1W2Qz WOYfnvdrmfscnCX7OAOvPFE bjG89Xk0yeDmsGc0bUVOeKL I3GBOvuQBmO4MxsM6wZoOcG DAwMDAw N6YwhKAsDUtjU803ZOnoLvE 8YIHzeaDxG9WoLQBzaHicWf L5z4G3Eg4YQGh0UD17RX35l GKjo1X8 cDU4U3KqZKJnckuxxocgbGP 3HZCoYWXjsR72Xj7isPitVq 9iXTUcXPW0FPIxaQFmY2Gqt Z9oDtDw OUKtRLKsE4LhjEPfMEkyA11 3VKxqKdF4PSHiapCyG8LwPO WryYqpUxW8l5Q5Pu7WWRXsY S83FOD0 rTO2CZ22GJ74O2FtRyymkLQ ibGU+PHRhYmxlIHdpZHRoPS xjBXVkPyGamPdlXM8lEb4wM GVyLWNv rNljaHGvYwHzc5kaOTAcKQl dSC0zxTdrT1DzlUD4BCGgf9 o1Jq52T83bH5XzkRJ+PGNvb RN5dUH5 sE6aGzLdAzM9PZnjN081MhY tkNCiLgopm7fgp5ozrNl8Pv X9MDLdkeKcwGxcOWX5f0KtN s63N64r IHdpZHRoPSIxNSUiIHZhbGl eqk1ixZ5lCl9+JVLfoXZ9lU H7jS9bBgNvYkK9DLzoV117A nRvcCIv Mewfm1kpd9kqsAn3AxWgXTF htxYmbDemNPF5t1PtUv16C5 JktDsyb2EtVqc5np34gPFpj 7E9sAD8 F4QtBOCteibptVJnyOikZI2 eUFBfcsjfOBAayQ8eSZHwJ7 v4KuDhDcQ3OHgaO4EpqaC2U DEwcHQg HTzeRUU2F53nw8T0BCFrXKR dQPU9yZF5bO9xsYoqclavzA VmdDsgdmVydGljYWwtYWxpZ 246IHRv wTksNMTisP7dAFFfwJAmtFd vYI5vMEAenmxmZxPJVpQNGE xtNHEWZQyOCiRLOX73VD85f RJhi6H5 vAC0C9JnXIAmigzfckhzjPW 2XWGkXVUtdG47wVHrKRveCc 3cv2L8m203MNJoELLgrG22Y c9hxAui CRQrwGPMyL9kroutz1xgbco eYpIzHOCeSQl5GIs0NMIkrL ikMgDtKHC8HbF9FOI3mCSex U4xyGdy ptttxM1jUzh+MDQvMDgvMTk 5NTwvdGQ+GGXwBFP9yPysLU mlQHGhyP3hHWSoB1o2VlSzJ eD6FNii P4ChWODpbemlAn76zL1iBqH yCbA7IYwsK3FqnyC1YYYsnX UuYNtaEFX3X74it3U4NXRdL DAwMDA7 yJV1gA2whCxeetsywNCcqVg skiPtaUuyYZlhBIabX461AB GenNhfDjV7XKntTELpGC08M J47cYGl o1H7rID2H4NeODOgzqntsdy egJM7UOMaUHHczD61ySAfKY poSf1rc6T8k226WFChAPLye B47Ag5d oFyhVGPwqSPBiV4ldkqvv0a jheuxBuKePMRjZCn5ABg7AS DspYwsQyUpFZV8LaR3XQF3a MXgyZ9o xIxneicqjI8aCrb+RmVtYWx vGN51YB18wPQti8Z0mNQ8Z5 MfOAAgdbebpbbfqHB9IABvL DUwaW47 yIUfUFhdIn2wv0M5h211PKS lQEQmrF73Xy9trNwiPPKcgT LSoG4pyxfcl6itmmsaAzJbN DAwMDt0 GQk3HQWylXsfQtCiTKE6VvL 7OKR2rDEcaD7ysWmpblqueP 9wOyc+X4DaYVKsHDntKQ10W F72F5Hu PjwvdGFibGU+PHRhYmxlIHd pZHRoPScxMDAlJyBzdHlsZT 4fIp5kAYPbMKNrzTifmFSeI gTnb9lb SIZuVWogAK7asPsvP8LwtZF 4KMGha7t7Sa39L69sU2ZayY A+JBEkbUY1nXM2yA4hXuNmX dK2VQra F500FsKsgYEfHrtee8tcs4x hiEu7IxTzIRVnhcLyrMstPH F0d4IfGc04G86eRVdrJFQuG SIyMCUi HHWflYeoxr5cqY1tQy1+PGN enNJ2yHP3cN9bWcElEaQ8QE auJ248ZfEjaZKyLzvcI06nW 3JvdXA+ CQWuWsf6EIEwlZhmVB2geYR jANrqRa2oCJZ5QvAsLzFbKU ugR8CoEJAfjcatgytgdOR9F DAuMDUw pM28Gk3zlLwhWo4nAXClRSM 9DNOwfPHhD9FunF4cIeQeJR TpGTOoL2JylCAuHLbkA945Z GxlZnQ7 RVGkzoDqF6RdBILxoAxqUmQ 6i3I8Gy8QkMzjhSIeYE3jAb QlLQk6M1UlIpr1KYBaqBcmW P1tpUVu XGfdXa4kgOstbQovLR4zCJK vjqkzg783SeJha4nhFBGmuS VpFWytLQT3D44mg8N8LXKfB DAwMDA7 kYL7wO4odFnkckzfzCZliYs edpKthNjfZKkdOAhcY933QU UywTbiYtQJAbm2M0WsGgv4C CBzdHls TD2liZScQVdkZq4ruEujdUu qRC9nSXJplugwt534HsFna0 tpMOIzgTAiXCmiNCH2K62xk 9R2AFVv TZYrHRJ1gSL0oW2hxWzmrvw gbGVmdDsgdmVydGljYWwtYW weF705LKMxtRxpRe0BRub4D 2ErRth7 HXXwnDzgMW3xhREiMMhkEy3 efYmkbNypNA5dRYCwmvdbs5 92AiByu3ruZISoiMAiXZpbQ QX3K47m l9H2UKCbOJMjNSO0rPP0pR6 hbGlnbjogbGVmdDsgdmVydG fnMDszHUkuW704SIZaoIymF lBheWVy OjwvdGQ+WL85bq75K3RwAho cHeg3YBDzQAF1eAZ1xO8eAE ZkUOlva3K2uJE7H4WpnkEdf c3pv3jy YXBz (more content not included)... [facility] Coding Summary. CD:[id number] Gh0 bWw+PGhlYWQ+OJ3QZNLfN37 gjQZetM7IG4uHAB5QHUYTUK AGTT7YKR2tcHP2SElqV0Hzg iAv MarorJPoQZ10EGe1KGC9zGq lYRtevZ7utLIsX3h5RcGgWW 99nI69AEiqQDRqVeA7MnGrn jsgbWFy U7tcMjWfvCWxYxn+PHRhYmx lIHdpZHRoPScxMDAlJyBzdH bkPD4sJx7nGNNtRYMnuOehw HNlOiBj s5zmIQHvPHsaSC0smEfwM3Z hhRA1GCKww2d0Jz14qOA+PH XgYNU1fPlfORlts180KoWpo 9hkUGD3 fWFrVPjjRLP0J08dr6K9LOD jMKWiAZE6jMW8wV0uyIdngq mgJ3NxrOKmIoA8KSC2wAWgu P1qkDxq wgxxmT5oTro+R82BHI7YSNF EJM3EJda3U4YqBqebpGP+PC 38OVTjSJ11bOHumJItb7jrh Bu8KpQx FMDtXJL2bTqeWVibq0HiBVL bM32myPCpc3R6QCPghKghcH WfXzBfgOG9cY1fCNpxsjfxd 2hvdzsn Swfif4rvsk50bB28B49lDGz oKVFpLTY9BUKvRPZujTgymw 8obL5tJt0+NRund6lby8xyt Nv9LpIa ACMwocGazNduDAD4f6QaXh9 5L3EgfRuai4SsXwg2eh63fO Gll3L8zUN2BXcrHYKpeQ4qV WxlZnQ6 GLKbIzXlwX59kJAmEOjjKi8 ymLaqaApoLM8nCXLelysyXV GfkX2rQVUeaPEodEqbMF4qM TBpbjtm h385ZfBdGPR2DMMbdOLyW3W jaA5aUkWbHLFpOFCaD4NcyB VqOBwvG312WEchQvQ9FSUdy zAmU7Uh HZUayIsjHzE1c8S5Zs5Ok0K ehcbdJOI3KMidPMQxXrM5Ws SlTcK0C3LvDkv2DFCnzUhzW B4dS8Ry TATmklywglsuwMN5OZWsHWG bbP03bNPzTLelVi3az8A2a9 55YMUyRVZoyS00Qe2csUssS TBwdCBU tO2ieusru3zodykgAtRyMOW bGRo5QUq8THKkkGfrInRvTH Z9RhY5TNB0mJRuxS0gyAeuh zmwkS0u Oyc+P76nfU6vEZI2PCM6wnv pEKVbwfAbXY29TT24L6LxPh wvdGFibGU+PGRpdiBzdHlsZ A2oBsGq c1qej8NxQKpyH5SuRXJmPVx wZpg0THHnAVZ6mFP9hN8tQQ TrUBxxp2I9zIO2U5KvhuFsb r7oj9jt YQDtJAweE09qbOMky0Y0LLD fsNL9OUTmaXyxTdVieS72Be c+UENhzSeie1QbCgrxp7fqi 9bpbOz2 DbDvOUBgbwWerRdzSQU5u4X gPc15B91hSDqlDXEsPIQhQF QgBQMkuBacvq9toX1rZu8+P GNvbCB3 cGC4zO8hURDqJkK5GXwtG44 6LvMtlHEeBgyma6cpl7wqlY e2GlDsOXVecjDaqKgrVDS8u 3NpOy74 Y29yWWipOGXbTWVpBEDgZEY lzXkynq9tnV8wNz7+PC9jb2 kvbp01vE70cGQ+COLfTUU9w WxlPSdw JJToeM3yJRkyXnY0YQJjFmQ efB47iHFoQBftOo8vvXfbhR twUS9xVHXawmttw555WtWih 2xkIDEw lEXlXGlcROS2U98rv3X2BHO wIAJfPTB7bQE3rX4wsBkoti ogbGVmdDsgdmVydGljYWwtY ZjnQ840 IHRvcDsnPlBhdGllbnQgTmF zDJx1L7WyGng8MWJnvTruWW 0okHRkKOjrAn5kvDczhVclW Q5bBHSw ipvov819RzWor3ypKRExaMO xOTioPYV0A30im0H2PXPxVA HlAGV7oFY1hH8moKrluntyn GVmdDsg mdOkrCayDMuzNUikF763UER bxGlwZcHmcmOqYYYtbBE7WU 98TO98hGQaq4M4nCL3C5DsO GRpbmct qiploZS1BXXuZRFznN13Sq9 rtBrxCy4eMYWuLXT7UPEogV YzW0NwhB2jDrRqEAUeHEMkW 3RleHQt CSbaX679PGmyQxH6OVIijbZ hQ2HvSFGesIujBbM1b0J7Un 9EQ0H8BW63KM26wCMru7N1n NA4V7Jx OHIbdwjnqvqhrUV5KJCsAVA grX23Ms7vvQtfSr5qXDIwPL T6RSVaoGIkI2EwmQ4zPpUdK DAwMDAw F5VemKSiWGusD246WEklZbR 8XUDtuzHwB6KmKJDshHzoIf Y0u1M8Bb4LVHo8TJ11MC89u HMtw8A8 mEU4V4ZbHDQcbrdafxhkaGO 3MXAvROQdrB38Uf1lxPjwYu 1oQEUhTJI2IPUlcYFaO6Shv D1sBaSr RODsHEBjP0JmwOUzKPtnG62 4YUsrDnQ2XTUfbtKeS3HbAW CaxQtgJnJ6j8Z5Rw8ZRFBqZ Z19OPL9 dCW4GD79XW78I0ZbUfaoaDO ibGU+PHRhYmxlIHdpZHRoPS rnLHCuBeUngGgjHA1jJy2iQ GVyLWNv mXnoiKJiGfBww5ieSWRdVBe jMP1joVotB8HkoKD4ZQVcr6 w7Nw21Y89hJ7SddUW+PGNvb EL9sDN7 hM3dRaJsFdO3XGruS990HtK gkABuTvedv3uab7wvzPy7Tx P6EUZslrMheJrxQLL8o1YzC a57M73i IHdpZHRoPSIxNSUiIHZhbGl adl6vvS1lTk8+QQZxhQC7mE C1eA5hRsXkZkM8XKbxB280S nRvcCIv Tyqdx5lgh6dhpEo0AaAzWEV lkyRzdIpiCYR0v2KnFv01F7 AxyRoej3OzTya8tm95dZOpw 2J6wED0 Y3QmGWYxzdyugTWdrJzrZU7 mSJMkbhyqJAZcyU1sUPVaE8 k6WpUuKbA6NRviM0YvkyN5O DEwcHQg VVjbKQL2X20yp5X9NANhVNU fXCX9xTT4cT8cwAdlrjykqQ VmdDsgdmVydGljYWwtYWxpZ 246IHRv cKamPKWfpS8mYZTolRNlrIh uLU5pAXWqwtdhMeQSLyPGID ogKZXOPEfQHfUWBG10OX55f IGdb1G2 fQF1X9GkSPRdbvvqdhcfnTS 1UBXrZDZdmJ37bMNpGTzoEh 8di4U3v274GIMiOJFdnJ77M s9tbDmj XAGswSYWrN5xzbbjk3wvpva uDlWeAOEpXDm3DLv9OHNjtF ioDqRfEBV0CaL0JJZ9oPGlz M1dzAto dqoumW7rRxs+MDQvMDgvMTk 5NTwvdGQ+AVEqNDY8uOfpNG epPTEspY5eRWVdW8e5AoTpN yC1NPih C8IuGCDdtggrNb87zK6vGfC mJaN5QEroR6AzqvL9TMPkrN FvEFktOBT4V16zg9S2IDOhD DAwMDA7 iCW9tM0luTvyrnlllNSopNq bjwKrpFrwVJrlHLbcN014VE CjaHpdDuW0JEdrNGHnEU69T B31sGId u3E0nIP3E2IwSJZdpfttxkx vbQP5QWXxMRSbaE22bSRtHT pnSr7fe2H0y475KREzNNOcv T74Be1e iZgkVRKftBVKuI8tfzyrc3x hipwoOxLtSNVdMDs2TLp9PI CfiSidPjHdCMV2IeD5VTF9l RMfjN2w vYwxtqtdvV4iAut+RmVtYWx nWU39GU86mKDhc8K7bNB6J0 ZrNRAclxkimwglgKE8QIImX DUwaW47 lBArQFsiQj6ii7Q9x074MPM vSPHxoE60At8qyFuyZRIvxN SAeK1zlxlis9rsfuovQuLoQ DAwMDt0 KSk3HOPbqKatTxNaUIZ8XoH 3AUD3bZXezX1djEjfxqrvyE 9wOyc+E4TrHMVfVSyoVA04U W04A0Oi PjwvdGFibGU+PHRhYmxlIHd pZHRoPScxMDAlJyBzdHlsZT 2lEn5dJMUfZFOutJpmlOYrX yAwb8gh UNFoPVpbVE2eoOoaY8EsdEN 6MBXmq0k3Hx92O15jJ1FaoM A+CNHrbDN8iNK4aF4qYaWuD iW1OKle P639ZxQfbHQyHjopu8mbv7o mxEq1DkQkTVNytjLchOkwLR Z3v2UaPm25J83nCKxyJPLzZ SIyMCUi OBCssCiaud4qkX1cVo1+PGN gyKG7cQG3bJ4qCcFnVpH6VI eyY182YsIrdMYyBsmgN26lK 3JvdXA+ SVYrBng2LGAvgZwnXK4sxCZ yOTypRv2xXHJ7BvLeRiZqCN mkM4BtYGQybxhijxcjbKZ3A DAuMDUw dJ20Sd4wzTbkJk3mBODwFBL 5XDPsxDGhX7KkjH8dApSjBL TzXZYzS1EelTKoORgfD659T GxlZnQ7 LNZvwlFmU1TbSQQlxBvrZoB 3b4E8Hl5NpWpaaSFaII9fHe KkHIp5F0UmMsu6NVAhuJucH J1ciWQh XMzjPg7ryWuroKqfZE7uEFX cpgrgr498EiNpy7ydBFOifT NhGMhxUGN2I91we9Q5FJOpU DAwMDA7 mRN1pN7khRukkuvetEAfnHi pfjFdjDgzQLwkQZirS124HA FgcIndGiVPMmx5P2XkVlt2P CBzdHls LC4njNKlAZesNr7zfFubnZl pUJ6kILYvlwyll476KhVpu7 iqLMIkgLWxDAktCKS9H66eg 8R3NAJx XAUuNTW9iKJ1eV3zlNcnqsm gbGVmdDsgdmVydGljYWwtYW jeL046HUSvtZmdWt9PNvm8E 3IyUxp4 BRFsuFbqFB6dgZOsXOpkEn4 yfOfnuMizRX5vHPNldlseb6 51VnMuu9qxWGWkpEJoRRikE SB0V49p f2T6UZFxAOIxQWV1lWS2vR3 hbGlnbjogbGVmdDsgdmVydG xzKUtqZFsdY792FKZxmNpeY lBheWVy OjwvdGQ+DJ86nx78A0YuBkh wVuu0TUCrIZF2qRR4gU1vKE RbDVknz5Q1aNS0H1TvmcEug x8of8dk YXBz (more content not included)... [facility] Coding Summary. CD:[id number]:3092300O Gh0 bWw+PGhlYWQ+DV0VZUIuZ66 svPRefK0UZ8wHHO2LDAOSID SUYC9MCG6axEJ3NGljK6Zrg iAv RvjenJMvLL46GHb0HKU5qBd xLQsfhJ5hiQThP5p4PrNlXG 66bX83BHsbWTGpRiU1YqIjl jsgbWFy V2sfVwWuhIMmXyw+PHRhYmx lIHdpZHRoPScxMDAlJyBzdH ktZG4eLb8cPAScDVWrrMtjj HNlOiBj f3mzGRSkNAfmTX4rmOchR3Q kxRX8OJPtg3s7Tx78tYL+PH RqZXZ8kFixXCdar938OvLdp 1gqFMU8 wYOlGGyyNYL5J32su8C2OJR qBUFvJCQ7dHE5uI9loMudiy gsU8OpiZMoVrZ1ISF8yCJwf P8fcKub djjrfW0rUkc+P73YXS2HMLL GIT2WPld0V3ZrAsskxEG+PC 47TDJyCH62pWLhyIEvu7cyp Sd9EnWp RDCyGOC2rFuuMAedd9XrTLI mB31auVUil7Y4FOWpvCiqqU PrPnTmrBO4dT4dDYzjemtdg 2hvdzsn Hxhck6sjam00fY47B41nYCu bZVElQPH9CHYwDXVcxGjcbr 3nvW6tVz7+YYkwz2hrv6rxx Ry9VcVo FATpndKkzXweWQS6a8LhHn4 6Z6RiuYwvj0JnKcp8mr98xA Yuw8K1uBP8SHfyHFTuiL9lF WxlZnQ6 SVJtPmBhbU55jWHdDWssAu2 mrMqerYjiPT7uFEWylufkVD TcdS6bDOCsdGGicYdyAV8gZ TBpbjtm j613AcNiXIX2MKZrjVQhN9B slE8uFsGbYIWxKDSsK8OnrH LsJVwaE497ITrcVfY4ODWnc iXiZ0Nu BKGxvAinEwR6u2T2Cd1Ap5M wydfrJZG2RSdnAQZiWgP4Et PtSbE0L7JkTnx7WULtcPnlB F8jF6Qs GVCqkbxnfdyhiBA3CERzSCX txL01kXLkIUowGe8uf3N6y1 88HTHmRPYpbC38Yl9nqJuvU TBwdCBU kV1zalrpl0vcpewvOmPnDXU wTHs9KDd0WAPpkHxcKiJvTD Z2YsN4ASN4lYJmlO8gqPiop fhlcL2l Oyc+G02shR1sUEW2KPZ5myb bJPRsaxRkNX91JO69S1XdJh wvdGFibGU+PGRpdiBzdHlsZ F0cJfTn w5cif1JvOYgpI9PzIKPzSJz hOyh3TCLyLZE7vPT7iY0pVU AnNIzkk0M8xVI8B2HpmvUdu v9ep5ph YDPhBTksA55nyFFfj6G3VOU mgIW7SUTyfAtzAoUpbX53Jz c+YTDdaJsyn5OjKchkv1iqs 2cvfWi9 NuLcESZskdGayLubJOE8o4R oAo65E21fIUgwDNYfMWYhPO LsCXFzeTmhdu1baL6sWh1+P GNvbCB3 gVT3wY7zYPFfJuX7WKmbS36 9VdJfrPPyGvaop0izw9tfwZ j4CkEiLXHtfrRckIgmYHJ4i 9XuIu97 D09lNHylLWVdOMOqGDWaYCM knZsqpc3cpS4oDb0+PC9jb2 tclv47nE24nMC+SKHpCTX9s WxlPSdw PDJxsQ6xSJucDsA8WDVlZvM uaT07zMTmZXmjRi0pfPvwzN dcHU4bZFNxhvqew423KlObc 2xkIDEw oSXtAUwpPYG7A30gq9L9TBU kMTClVGA1dAV6aC1soCoayb ogbGVmdDsgdmVydGljYWwtY IqiT782 IHRvcDsnPlBhdGllbnQgTmF bJSp3N9DuGob3QQCjiBhrXC 1maQFfBXtaZd9sdHcftEhaS L7fKSDo flyhr261EeTsi3akQIHpdAH nVIcvHPP1B65rw6C6GKQeRP RlPPK5bJT6wZ4hxVuhuaetf GVmdDsg gaOiwRieFRnrZUvkS647EJE hmXhkIoAqezEyEBIxgSI2HL 46ER10hJGld3G8vZB0Z6RnF GRpbmct pxgbwOR1YBYtMJPnlB23Es9 raDfgGm8uSSXoTRU5IJAdoX MlB1KfmI5eJxJsKPPzMZRzR 3RleHQt LVbrC426EUqkGaW3ZLWqaaB gC4GsLASggHfiPuS9w8B7Yq 4HC1I2FX10UL36bWMby0E0c FY7I0Lk TCBxrnxsgfbgyKN5LBOoYSJ idN46Ke2ggRzlHk4wCXAjIX E3GLNmzXStE0FtlL2vCqVxE DAwMDAw H5SspRBjJHieP622TBivTlY 0KCXtbaKoO9UiKYNbnItsNr K6z2K5Ep1SBNt6UW16NZ08v IUut2X9 kAP8W2TsEEKcrgtkjuxnxZE 0YAVbOFGggV35Dw1feTxxEw 9oURNiXTL5BWOvwHLnT2Pux V9rXzQw EVEeTROuZ9LnlGQmRXozP58 8IPsaRnE0EXHqiiBsR7WpNQ ZerFkxXyU5i8R4To2VCZQkM K62YZP8 xQL7DS52NG79C0OuYqtjqSA ibGU+PHRhYmxlIHdpZHRoPS evGLPpVwSjeGtnLG3mSf4vW GVyLWNv aAxbkPPlZwXmj0vlEIMnPVz tTY9bgYbfF5OpvDN2IWBmf7 h2Dd14N45vJ0XoxFL+PGNvb YK6gLO4 pE8uQsJkOtL7EWteP791LeM zzEMpXigof4ttj5uogPm2Fi Z3TAFvxpXmyIxsRSA9o9NuL t60L43y IHdpZHRoPSIxNSUiIHZhbGl nbp6vpH7rLh5+PHMqcYL8eK N5jS7xUpPwMwS0RJsaI637M nRvcCIv Gqlfx1nwe7jbxVu7ZaJeGGI temMdxMkxYAF2c0TmOw27P0 RecQoal8KiJnk6qn28zGDlk 0W1dVS1 E1CfWYOvynebcZUcuTpvHD8 xVZQrrwbdEIJwhR8tEPGuH5 x9OsYhHqI7JPkuG8VdgfY9A DEwcHQg NBpuTWB6X29ly5D7TLSnIGI sBNJ8cJT4pG9ltJufqxgqpF VmdDsgdmVydGljYWwtYWxpZ 246IHRv qBxzJKSifP6dFCOfbUTonDk cMQ2xCOCdjetuFiQGMoMATZ xcKWUKXSqBAmVYJP82UL89l JBzs5N6 bRQ2K4YnHPUinxyuhdebnPE 2RKHrJPNkgU40nJQvYQowCu 0pv3B4d598YVUfXEXkjP28G m4sbJyw JYBguZRUsL7hiqkix1rsxkz oXsDeMFYoFLm4MJd4ZYEghF dcMnUpSFM6QlI8KCG2tSFmb F7wnRwg firvtA8dCel+MDQvMDgvMTk 5NTwvdGQ+XIRpPTO6uOgaDE yaDEWfwJ9yTFMaX3v8YaTpI uC8SKyq J1PzNJBqabuvTm73uV4lJmU pVkW4NHbpW6YnzhY0YBIjkB ZyIKwjVUI4J04zf2Q0KGGnY DAwMDA7 bAP1mW2muKcbcnibcOGjoCw truEklXmoUKnlHDncQ247ZQ QhcGbcOhP2IKzuSBPpRN78L P56aQVm x8L8gWA2Z7KdUVUzvkqcgcv koPG8MSAvRRPkhX07vAZcVF jlSj9jr6E3o008XBXmSRVnj Z20Ng4l nWqkVWPupWGLsD3ihdglx7n wdrddPdLtOIZwUUl4UHm5HZ YnmPzcGyMsZJT6HxL6FDH9z IJdpP8w vUhaaawwkQ3sDwr+RmVtYWx hXU44YM84gVWyc8N6oFV3L0 YkNKEvbvsfdpzhwKH7XSTyS DUwaW47 vUXiMVidHr3zq1O6z456PRT pFZWllV84Pl7ifDczWZZvdU MJtW9uxzkge5zpalhnFiXjB DAwMDt0 TSb9GVUlvJplPyYtINZ0DeG 4OPW8kPDvcX6uqRmgblfrjR 9wOyc+V7NuZKOiYSafKA62Q L25H0Uf PjwvdGFibGU+PHRhYmxlIHd pZHRoPScxMDAlJyBzdHlsZT 9eKi6iEIBcPETkdLxfzXNdO bDcw5rw XXIqAJrgVJ9daCpqD2YavNS 0HFFcw7p7As55J11lK5SwoV A+MWAaiKV8vGO5uV6fPmOvN oG7UQfu B869NqFryWEyLnmca1fyj6a nwTd4KoQzFFEjpaDbqTolCI X0e8NhZe28U24wFOhdFUNaW SIyMCUi SYTteFkjgp3qaW7vEc7+PGN eqWW5lPI4yZ7zGcObBuO1ES emC492QxMmfUHhUqutZ48oB 3JvdXA+ GKHqQue2SVHzlInsCK3fkIY hBYwdEo6iFLE9PrFnHhFeUE ylU5RvNECfsvqnbgqzjPU4X DAuMDUw oA99Hv9pqJacFp9hNZOgACT 5BRZyyGMrW5CavC4xXeKgPC CdMONhV4ZioMIrKNrqS538G GxlZnQ7 YATrktWqS0NpEVCvjXccMwY 9m6P0Ai4YjPkqkEScQU5aGq UmNGy2P2ZoLbj5MWWhzRflQ K2zrMDf OXneHg8rvWvpzJjeBX4sFSX xyiosw156WmYov2wpKPWgaQ VxIKkuKSR9U13ib0M4LVZjH DAwMDA7 vZX2xU2wyMemjfocdSJngAw lndPlfFgmXStdAPgpR163WX ZigExvNaGDJuw0T0PmXil4T CBzdHls LD4nhEEjKWrlLo4wqFgfjAh uRR5rVJVnlsmrn510FtRml4 onBVTuwEZtGYzdVUW5F90cz 7U9OLRj BGUqJGA1mMK1vF2yqZbkarc gbGVmdDsgdmVydGljYWwtYW ufJ981ZFAiwEvqPb6AEgt8N 4EmSyr5 PGWvkYdqTP9riRTtDVbeAe1 soVznhFxqBP6aAXWvmrdwm8 56EtDgc8zeCHTzsZMzOBllC IY5R25s d8Q0FYOaBNOjMNN9dRY3tT0 hbGlnbjogbGVmdDsgdmVydG suLXetUEdyI458EGOogJakP lBheWVy OjwvdGQ+FE09no77J4ZxAia eLbi5VMJzBDX5gKM6tX6tEQ PzPWvez8K3nPW7X3HzafStc o6lv0nb YXBz (more content not included)... [facility] Progress Noteon 12-02-2022 Progress Note Late entry due to patient care. Resident Diallo notified of B.P 138/96 heart rate 119 around 1236 see flowsheet. Also notified checked in 1 hour via orders and B.P 143/87 pulse 111. Clarified if should check in 1 hour according to orders. . Also notified patient has discharge order in. Resident Diallo states No on rechecking. Ok to discharge. Will make patient aware. [facility] Progress Note VAGINAL DELIVERY POST DAY # 2 Driss Cope, 27 y.o. This patient was seen & examined today. Her was complicated by: Patient Active Problem List Diagnosis Preeclampsia, severe, third trimester Today she is doing well without any chief complaint. Her lochia is light. She denies Headache, Chest Pain, Vision Changes, Shortness of Breath, and Epigastric Pain. She is ambulating well. She is tolerating solids. Vital Signs: Vitals: 12/01/22 0757 12/01/22 1048 12/01/22 1528 12/01/22 2327 BP: 134/84 132/85 130/80 139/88 BP Location: Right arm Left arm Patient Position: Sitting Sitting Pulse: 85 104 93 94 Resp: 18 18 16 16 Temp: 36.8 ?C (98.3 ?F) 37.4 ?C (99.4 ?F) 36.9 ?C (98.4 ?F) 36.1 ?C (97 ?F) TempSrc: Temporal Temporal Temporal Temporal SpO2: 98% 96% 97% 98% Weight: Height: Physical Exam: GENERAL APPEARANCE: alert, well appearing, in no apparent distress LUNGS: clear to auscultation, no wheezes, rales or rhonchi, symmetric air entry HEART: no murmurs ABDOMEN : benign non-tender, without masses or organomegaly palpable EXTREMITIES: no redness or tenderness in the calves or thighs, no edema SKIN: normal coloration and turgor, no rashes, no suspicious skin lesions noted Lab: Lab Results Component Value Date HGB 11.2 (L) 11/28/2022 Lab Results Component Value Date HCT 33.8 (L) 11/28/2022 O Antibody Screen: No results found for: LABANTI No results found for: RUBELLAIGG LABOR DELIVERY ??? SCD's ONLY (labor through ambulation) SCD's PLUS Prophylactic Anticoagulation until discharge SCD's PLUS Prophylactic Anticoagulation for 6 weeks SCD's PLUS Therapeutic Anticoagulation for 6 weeks Vaginal Delivery [] BMI ? 40 kg/m2 Delivery All patients Vaginal Delivery [] BMI ? 40 kg/m2 AND [] Antepartum hospitalization ? 72 hours within the past month Delivery 1 Major Risk Factor: [] BMI ? 35 kg/m2 [] Low Risk Thrombophilia [] PPH+RBCs, IR, or operation [] Infection+Antibiotics [] Antepartum hospitalization ? 72 hours within the past month [] PMH: Sickle Cell, SLE, Cardiac Dz, Active IBD, Active Cancer, Nephrotic Syndrome OR 2 Minor Risk Factors: [] Multiple gestation [] Age > 40 [] PPH ? 1,000cc [] (+)FMH of VTE [] Smoker [] Preeclampsia [] BMI ? 40 kg/m2 AND [] Low Risk Thrombophilia OR ANY OF THE FOLLOWING: [] High Risk Thrombophilia without prior VTE [] Low Risk Thrombophilia with (+)FMH of VTE [] Any single prior VTE ANY OF THE FOLLOWING: [] Already on LMWH/UFH [] Multiple prior VTE [] High Risk Thrombophilia with prior VTE Low Risk Thrombophilia: FVL (heterozygous), Prothrombin (heterozygous), Protein C, Protein S High Risk Thrombophilia: FVL (homozygous), Prothrombin (homozygous), FVL+Prothrombin (heterozygous), Antithrombin III, APLS Assessment/Plan: Driss Cope is PPD # 2 s/p Care - Doing well, VSS - Female - breast feeding - Contraception: Per Private Attending - Encourage ambulation - VTE Prophylaxis: Not Indicated PreEwSF - s/p magnesium sulfate for 24 hours for seizure ppx - BP normotensive overnight - continue procardia 30mg XL daily - asymptomatic Urinary retention- Resolved Disposition: Continue current care. Based on my clinical assessment, this patient is safe for self discharge (does not need transport by wheelchair) if she so chooses. Provider's Name: DO Vanessa Zambrano DO 12/02/2022, 5:09 AM [facility] 42on 12-01-2022 42 22.5mm flanges given to patient. Encouraged her to call for observation of pump session and smaller flanges. Martha in NICU to assist with personal pump. [facility] CARECOORDon 12-01-2022 CARECOORD 27 year old admitted for induction of labor for preeclampsia at 34/6 weeks. Vaginal delivery. in NICU. Patient is independent and has insurance. She is prepared with her baby supplies. Denies any needs for housing, transportation or food. Discussion on the A. B. C's of safe sleep. Always place your baby on his or her back to sleep, use a firm sleep surface and your baby should not sleep in an adult bed, on a couch or chair. Keep soft objects, toys and loose bedding out of your baby's sleep area. Reviewed post depression. It is common to have blues. This is a normal response to many of the hormonal changes, stress and lack of sleep that go with raising a and physically recovering from the . Don't hesitate to talk to your provider with any concerns. There are resources in your home going booklet. To help prevent germs from spreading to you and your baby, make sure everyone washes their hands before they handle your . Avoid crowds, and keep away from sick people, anyone who is sick with a cough or fever, including family members. To be discharged to home. Denies any concerns at this time. [facility] Progress Noteon 12-01-2022 Progress Note NOTE - VAGINAL DELIVERY POST DAY #1 Driss Cope, 27 y.o. This patient was seen & examined today. Her was complicated by: Patient Active Problem List Diagnosis Preeclampsia, severe, third trimester Today she is doing well without any chief complaint. Her lochia is light. She denies chest pain, shortness of breath, headache, blurred vision, and RUQ pain. She is ambulating well. She is tolerating solids. She was not able to void after delivery and required straight cath'd x2. Again was not able to void and therefore chauhan catheter was placed, still in place this AM. Vital Signs: Vitals: 11/30/22 1512 11/30/22 1932 11/30/22 2302 12/01/22 0308 BP: (!) 125/90 138/84 131/80 125/79 BP Location: Right arm Right arm Patient Position: Sitting Lying Pulse: 98 110 92 94 Resp: 17 16 16 Temp: 37.4 ?C (99.4 ?F) 37.6 ?C (99.6 ?F) 37.2 ?C (99 ?F) TempSrc: Temporal Temporal Temporal SpO2: 96% 95% 96% 96% Weight: Height: Physical Exam: GENERAL APPEARANCE: alert, well appearing, in no apparent distress LUNGS: no increased work of breathing, good air exchange HEART: regular rate and rhythm ABDOMEN : benign, appropriately tender to palpation without masses or organomegaly UTERUS : normal size, well involuted, firm, non-tender Lab: Lab Results Component Value Date HGB 11.2 (L) 11/28/2022 Lab Results Component Value Date HCT 33.8 (L) 11/28/2022 O Antibody Screen: No results found for: LABANTI No results found for: RUBELLAIGG LABOR DELIVERY ??? SCD's ONLY (labor through ambulation) SCD's PLUS Prophylactic Anticoagulation until discharge SCD's PLUS Prophylactic Anticoagulation for 6 weeks SCD's PLUS Therapeutic Anticoagulation for 6 weeks Vaginal Delivery [] BMI ? 40 kg/m2 Delivery All patients Vaginal Delivery [] BMI ? 40 kg/m2 AND [] Antepartum hospitalization ? 72 hours within the past month Delivery 1 Major Risk Factor: [] BMI ? 35 kg/m2 [] Low Risk Thrombophilia [] PPH+RBCs, IR, or operation [] Infection+Antibiotics [] Antepartum hospitalization ? 72 hours within the past month [] PMH: Sickle Cell, SLE, Cardiac Dz, Active IBD, Active Cancer, Nephrotic Syndrome OR 2 Minor Risk Factors: [] Multiple gestation [] Age > 40 [] PPH ? 1,000cc [] (+)FMH of VTE [] Smoker [] Preeclampsia [] BMI ? 40 kg/m2 AND [] Low Risk Thrombophilia OR ANY OF THE FOLLOWING: [] High Risk Thrombophilia without prior VTE [] Low Risk Thrombophilia with (+)FMH of VTE [] Any single prior VTE ANY OF THE FOLLOWING: [] Already on LMWH/UFH [] Multiple prior VTE [] High Risk Thrombophilia with prior VTE Low Risk Thrombophilia: FVL (heterozygous), Prothrombin (heterozygous), Protein C, Protein S High Risk Thrombophilia: FVL (homozygous), Prothrombin (homozygous), FVL+Prothrombin (heterozygous), Antithrombin III, APLS Assessment/Plan: Driss Cope is PPD #1 s/p Care - Doing well, VSS - Female infant - breast feeding - Contraception: Per Private Attending - Encourage ambulation - VTE Prophylaxis: Not Indicated PreEwSF - Met criteria at OSH with persistent headache and severe range BPs requiring acute treatment with IV Labetalol 20 mg - PreE labs negative, UPC 0.53 on admission - S/p magnesium sulfate x24 hours for seizure prophylaxis - BP normotensive to low mild range past 24 hours - Asymptomatic this AM - Continue Procardia XL 30 mg daily, titrate as needed Urinary Retention - Patient unable to void after delivery and required straight cath x2 - Still unable to void spontaneously and chauhan catheter placed on 11/30 - Plan to remove chauhan catheter this AM Disposition: Continue current care. Based on my clinical assessment, this patient is safe for self discharge (does not need transport by wheelchair) if she so chooses. Provider's Name: DO PAOLO Zambrano DO 12/01/2022, 5:32 AM Attestation Statement I saw and evaluated the patient. I agree with the findings and plans of the resident physician, and agree as documented in her note. Doing well PPD#1, chauhan catheter still in place for urinary retention - plan to remove today and re-attempt spontaneous void. Blood pressures stable on Procardia 30XL, continue to monitor. Consider discharge tomorrow if blood pressures remain controlled and urinary retention resolved. I spent 15 minutes in the visit, with more than 50% of the total [id number] time of the visit in counseling/coordination of care. , 9:22 AM [facility] 42on 11-30-2022 42 Swabs given to patie nt and educated how to use and to bring to infant [facility] 42 Breast pump use indicated for this pt. Due to: in [facility] breast pump, supplies kit, swabs and colostrum collectors provided and set up for patient at the bedside. Instruction given on pump operation, settings, technique and frequency/duration. Return demonstration given by patient. Observation of pumping session and flange fitting done. Flange size 25mm (needs 22.5 flanges but not available). Mom instructed to double pump every 2-3 hours for 8-10 times per day with at least one pump session between 12 and 6 AM. Suction to be set for comfort but recommend between 20-60%. Reassured patient that it is normal to not collect any significant amounts of breast milk in the first days of pumping, but consistent pumping is important and typically results in increased milk production. Discussed projected amounts and daily goals. Reviewed breast massage and hand expression for increasing milk production. Reviewed colostrum collectors and swabs- how to use and collect colostrum and label swabs/syringes. Breast milk storage guidelines reviewed. Cleaning of pump parts reviewed and basin, soap and clean towels provided for this purpose. Encouraged skin to skin as soon as baby's condition is stable. Discussed plans for home electric breast pump. All questions answered. Will continue to monitor, encourage and support patient. Script sent to aminata huffman and info given to patient Educated patient that she will most likely need 21 or 19 mm flanges for home pump and how to measure flange size for home pump Told patient to check with in [facility] for smaller flange sizes [facility] Labor and Delivery Noteon Labor and Delivery Note Attestation with edits by Carol Bowden MD at 12/01/2022 8:22 AM Procedures or Surgery: I was present for all morales elements of the procedure or surgery as described in the resident note. Vaginal Delivery Note Department of Obstetrics and Gynecology Patient: Driss Cope : 1995 Date of delivery: 11/30/2022 Pre-operative Diagnosis: Driss Cope at 35w1d 1. <37 weeks 2. 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 Bowden; Dr. Kramer Information: Information for the patient's : Francie Cope [[id number]] Information for the patient's : Francie Cope [[id number]] Description: normal Meconium Noted: No Anesthesia: epidural anesthesia Complications: None Application and Delivery: Driss Cope at 35w1d admitted for IOL-PreEwSF. Her labor course consisted of cytotec, 60 ml chauhan bulb, pitocin, and AROM. Once complete she pushed for 1.5-2 hrs prior to . She was known to be GBS negative and did not receive prophylaxis. After pushing with contractions the head delivered Cephalic, right occiput anterior over an intact perineum. A nuchal cord was present, found to be loose and delivered over. The anterior, then posterior shoulder delivered easily and atraumatically followed by the rest of the infant. The was placed on the maternal abdomen and attended by the RN for evaluation. The was stimulated and dried. The cord was clamped and cut. The delivery of the placenta was spontaneous and appeared intact. Pitocin was started. The vagina was swept of all clots and debris. The perineum and vagina were evaluated. 1000 mcg rectal cytotec were given for uterine tone and persistent bleeding. A 2nd degree perineal laceration was found and repaired in standard fashion with 3-0 Vicryl. A right labial laceration was found and repaired with 4-0 vicryl. Her bleeding was controlled and uterine tone was firm. All counts were correct. Mother and baby tolerated procedure well. EBL: 400ml QBL: VTE Prophylaxis: Not Indicated LABOR DELIVERY ??? SCD's ONLY (labor through ambulation) SCD's PLUS Prophylactic Anticoagulation until discharge SCD's PLUS Prophylactic Anticoagulation for 6 weeks SCD's PLUS Therapeutic Anticoagulation for 6 weeks Vaginal Delivery [] BMI ? 40 kg/m2 Delivery All patients Vaginal Delivery [] BMI ? 40 kg/m2 AND [] Antepartum hospitalization ? 72 hours within the past month Delivery 1 Major Risk Factor: [] BMI ? 35 kg/m2 [] Low Risk Thrombophilia [] PPH+RBCs, IR, or operation [] Infection+Antibiotics [] Antepartum hospitalization ? 72 hours within the past month [] PMH: Sickle Cell, SLE, Cardiac Dz, Active IBD, Active Cancer, Nephrotic Syndrome OR 2 Minor Risk Factors: [] Multiple gestation [] Age > 40 [] PPH ? 1,000cc [] (+)FMH of VTE [] Smoker [] Preeclampsia [] BMI ? 40 kg/m2 AND [] Low Risk Thrombophilia OR ANY OF THE FOLLOWING: [] High Risk Thrombophilia without prior VTE [] Low Risk Thrombophilia with (+)FMH of VTE [] Any single prior VTE ANY OF THE FOLLOWING: [] Already on LMWH/UFH [] Multiple prior VTE [] High Risk Thrombophilia with prior VTE Low Risk Thrombophilia: FVL (heterozygous), Prothrombin (heterozygous), Protein C, Protein S High Risk Thrombophilia: FVL (homozygous), Prothrombin (homozygous), FVL+Prothrombin (heterozygous), Antithrombin III, APLS Delivery Summary: Specimen: placenta Blood Type and Rh: O Rubella Immunity Status: No results found for: RUBELLAIGG Irina Kramer DO 11/30/2022, 4:04 AM [facility] Progress Noteon 11-30-2022 Progress Note Chauhan catheter inser tank by Andi Bacon RN, catheter drained and emptied for 900cc. Catheter secured to leg. [facility] Progress Note Patient up to bathro om but remains unable to void. Bladder scan completed and reads >570. Sent secure message to Dr. Ruiz letting her know the above. Instructed to place chauhan catheter. [facility] Progress Note Secure message sent to Dr. Gamez stating patient is having difficulty voiding, patient's perineum is very swollen, and that patient was straight cathed for 950ml at noon. Received order for benadryl to help with swelling. [facility] Progress Note Nutrition rescreen completed. Chart reviewed. Patient to be monitored and followed by the diet network control technician. CRISS Oshea [facility] Progress Note Patient unable to vo id, last straight cathed at 0400. Bladder scan obtained for >928 ml, fundus +2 and shifted to right. Patient straight cathed on attempt x2 by Andi Bacon RN for 950cc. Will continue to monitor. [facility] CAREPLNon 11-29-2022 CAREPLN The patient will continue to make cervical change. Clotilde Mg RN [facility] Coding Summary.on 11-29-2022 Coding Summary. [id number] Gh0 bWw+PGhlYWQ+OP2MGBAeI83 knGEvqV8XG0aHAE1DQLEIKP XPVN5HWG1leOW3EBveH0Lgl iAv XegorBZeFH43XNj4FCR3xQm dRAmkjG7pwWTiD9w1FtVkEU 74vW11GXqpNPQmZcB0NfAud jsgbWFy X0pxNlKzaPIlDid+PHRhYmx lIHdpZHRoPScxMDAlJyBzdH onNI8qKd0hLGVvFBOvkXlqb HNlOiBj o9hpOQIfVHxoUK4noSskK2C pwIK5VHRcv3c6Cq72sMX+PH KoGIF0vUzqYZygw510XwQfv 7rcNXL2 aKAeBUmiHZT3O03at4Z9ZYF dEGIpHYT1jGY5oB7ngMalka ttZ0XsuZYgBrV6BWL5sKXbk G8itJez xftoqX6bGjl+V13WXI8FQEA KSJ2GPsl8M8SgFzuaqWH+PC 02LKVcQI15gTBrqKYwc2dvh La5UgCf OEQrMYJ2cDwlQPown0NzKJV sO93ikGRsn7X6TNApyMmjjX XiLeLugRA4dN1iJTjyehqmj 2hvdzsn Txznc0tplf78aG38M06zLCd wQUXwBSU8GLUvANQmkRdjqr 2hoH9jSy6+DYoyp4ywo4scc Pw4TuIl RVPrmpGgaItuQJG8z8YlAu8 8A8KknFhjt6GcHfa3vg96jR Wmq4A6xQO9VMjiTFIiwS2xV WxlZnQ6 GVPiOnUemK13nRBbSWsaSe2 zyWkljJlbSA7wSNLnhcpxVO EhmT2nQZAgwVHcuDxkBZ4pZ TBpbjtm p442ZpNsRAL3APFxmHNbU3Q wbD1nUcKtORRiNDCxN1CfyK AyWRtvU885VPgtRpM3GJRxp hLkD1Zv FDDscWcvZcW1b9E5Gd9Fe7C emlseHJG1RPlfWBJmZfO3Kb MsFnM4J0LcTgm0KVZvvEpnW F3rW3Sx KUGyfslulicmvFO7UAGnBJL ucC09pSYiZIchRl0cc3W5n1 68MOScRJXobW36Tp9ylIuzB TBwdCBU eJ2flubyv6xghgmaBtOrZHF eZTm1PKy0RXBvrEfdBhEbHO H6SeV5ZRW6xLBnfI1yhPlav wxhgZ7j Oyc+J26svV6vMEU4BYA4zwl wPNLxanXyPK74GV21J6JkBp wvdGFibGU+PGRpdiBzdHlsZ L8fAoKp f5sfy6NgLSpqI3HhIRHhRHq bYqe1WPHpVBT9iXT0xP5qCH FeWCgww3H4zBA0L6OifoLql c1ae9db WRFoVRcxM18jfLDhq0E3ERY zrNA6OKHfxHpzDpKrrR46Ke c+KISvjKwte0PaDxooz5wob 6zkhAv3 FaZwELPpftAvwFoaUCZ8p4M oCg71A23aJNkoTIKcFAIsFO UsCECfgHodpv0qlO0dYq0+P GNvbCB3 lTS4kQ2eLRWgZbY6JKbhY26 3JeMdeLCvClsco3nfd3oamE l9QbHfCOCbumMsiHlqRXZ4y 6BzDx00 J27cWPjfSDCmALSuROFzBMH wdVbnkx3wxZ5cGn4+PC9jb2 cvdb37tV32gMH+VUOkGYS4a WxlPSdw HUHlaX9qBAqsBnG9CODhOdX gbF38uCPvQKxoEc5hcZubtQ dwNX6hXBKiodczw514CmNji 2xkIDEw iEWbPDpaMXI6W16sz6K9VBV wGUOpMXB5qOS4uY0ywPtcho ogbGVmdDsgdmVydGljYWwtY BrxS080 IHRvcDsnPlBhdGllbnQgTmF fWYl3I3QsAlu7CMKciGnkPX 5zzELaZOrwIw2jaQslmWvfU P0vSYPs yrnfd891NoUek3fzKLNnaOM sOEexQFD3T86bt5V8BHUwMU UaFJR3bPR2gS8wyQajoauav GVmdDsg kxEzbHhkEExhXXgrO568CZI ddZrvEmNnjpPlXYXoiYD0HE 25XN86mDDub4F4uGC5P7BfR GRpbmct zfekgIX3XSWvWMIxxC87Ug5 tjJztPp5aCXNrWPN8SGMzgI IuE2NuoO2qXqEoMGQdVZRtG 3RleHQt JYziE334FEexRmU9BHQhmrS yG2CvFZYcgLxbKmT6a1N5Mp 9UQ3C4XH13AN04tEGgr1U5j XW0A1Ns VEKhkclpwopbgEQ1RKTrIKE foE15Ep2tyIokTw6gJUDjXJ C7NAXjwPCaU8WueI2cRrZyA DAwMDAw Z8NimGMzFBfpK355VRofGhY 0ALWqolVuH9FgLRGsvZbtKn A4r2G3Qx8MEWe7EU31BD51u ODxt9V6 qEV7G9QpIIAynvvxssymoPL 4SPHmMRPczY92If8iqZbcYe 1uXBKdNFG3AKBvbELhC9Swx H7eLlSm TYBxFDVuB4PnuMZwKGtlP63 4LVjsQkX1PCFsmeCtS6WrBZ QxzVjzIsF2r8I3Pb4ZIWMfN K06LQU7 bEE6BB26UL48W8HzJdhauKK ibGU+PHRhYmxlIHdpZHRoPS tjIDPiSjHtwZukFV2hQx8vH GVyLWNv aIikjCWlYtJgx7igOWEaOAi yWH6woQpdR7KuqIW1JWMmb3 m0Rz96Z67xU2JjgYW+PGNvb MF9bBL7 fP8fUrVfBdC5HGsfK687OtE apXDaHxatw4zfy6pwpJz6Sd F4FVWwrwMewJloVEA1n7TcY g68Y15f IHdpZHRoPSIxNSUiIHZhbGl jsn4ksI3gQz3+RXTbxFW4mU A2dJ3wUfVcAhJ5NHqlJ476P nRvcCIv Uyvqk2ema6jwdAy0AzGcZHZ hpvDpuDdyGCK3w0UqIq90E2 CpgMwpg7CcXqm6rg63iDWgj 5U8rXX6 T2QjHZPubrsupDNysOobYU5 vUYYgteiyKYUgbJ0kRMUrN8 l5KcPvOrX2FOdoB4ClikE9D DEwcHQg KXdxNRX5O10bm2Y1TTCvMLL vNZP3tUX5xT4bmJdxjhqzpN VmdDsgdmVydGljYWwtYWxpZ 246IHRv tKgvFPZwrS8yVQZzuLPygSu vGY5cHQJaaewsCvTQBnZVSR ezUHBXHJfLPxZZYW51CG26r CGbs5H7 jNY8K1DnFPPvgaasmbdxoYF 9JECsHJCbwB95tWAvGHjaEs 0vl5I6c024VNWdJATzvA32U r4owMqf ODJzpKMFwY8rwlgkw0ssgzh bTkOpDXFiMQc5QXe3LDSwnQ yyWtAjMJO0IkO4ZKL3sMAlo S6kyYsr kvvxfO9zJlp+MDQvMDgvMTk 5NTwvdGQ+KFYmWEX3iCgcIN fkIIWxaS4vJKTvB7s3UfWkJ aP3KMcn F7NvHFSulzoiVz44eD2tDxH cAyT9KShqK9KoaoD5QZBjnA HjIElzLNH7L21hc1A8VXDcJ DAwMDA7 rPL9aS4cyUaargwseIPbhLa poaYfqHrlYHxiQHptY096DJ PijCjlSfH4LXuxGVMoYY99S D21uVDu f3Y5rUJ1Y9JwHCScnguguci ixEZ3TLJmAFPlwR19mCBgUZ yqKf4kk5V4e734VWGaHHXnb Y23Zy0a jZvjYUKaiAZMfN9rqdrvv2t farbyPgUcHUXbUVc6DOq3BX ZujXzsLqDgXAF7OkK4LHG1t RRysG5l nOwhcidtwU7sJns+RmVtYWx vBD44PS89kSJal7P2qRR4Q4 IxTKPdlcehoddveEN4FJWpD DUwaW47 yDDdBHrzYw9wx3K9n631IUP vKFPdfS48Yy5eqRdgGNPbpD VEvU3mxndgb8otmbsvRlPuA DAwMDt0 IPg6THUsrOjvVcErMDJ4SoZ 6GAW8lLPgqF7atWnsqosdcJ 9wOyc+D9NdGDZpILwfAT47E H58V9Tg PjwvdGFibGU+PHRhYmxlIHd pZHRoPScxMDAlJyBzdHlsZT 8aFs4nUAXnZRHyhHderCThG mXvq9st JMZePVjiVW3kaCkdG6YcqWQ 3CZAnu8a0Ly19S26dA8GanP A+AKMzpJG0pEN0sY8wAfCyD yV4KRim D436UvOufXZkRbnze3bud5z kkTt8BjJqQYSzyrLmgGwwMS M8v6ThZw86U61rIIjcQJZkY SIyMCUi GNWzqIqqee3yhK1sFk3+PGN foTD9dNZ8yX8qAlXyLvD8VX seF776YyUjbPGrJbsrD55eE 3JvdXA+ ICUaGrt5YYUumCrbFE2fpFW iMWdqXm5zSTE8NgWtYtYtFK ugZ7HsBXZneamvgszqqUQ9V DAuMDUw hM78Hk2avHekJk6sCOIpTSA 1KFBevKZkP3OlyN9rGjLiJT KhHORwG8AleEBgBEowD517T GxlZnQ7 FDKtjwElM9QkHIPdzKeeIaX 3u5J3Al6IdFaybYCmIK2wDz KbRZr1P3NbZhl4NMOuxPifL X7yrEJf UTxcUk4hpMiueXhuKG9sCHD pbmsdg549FhLev2jbPLNvaR ScPIooNZV1U59ne4I4USHhR DAwMDA7 sPS5wS9otOptufgztMCseIk ztqQpxNsuWVmkEZcwB273IF NidDftEnTJYcs1D8KrTox9G CBzdHls XA7xfPOrSLfxPc6dcBurgCh rPD4gKLFgokxxt696CwDrl5 hsKYTeyUIlGTkrZYS2N44vz 3G4BYTt RTSzBXJ4tTH8hB0eqJwzgjv gbGVmdDsgdmVydGljYWwtYW zoJ915LGSlrCldAb7MScp2Y 6BgUmz8 IQQiqZrhJF7egETgPWgfQs6 qwCxkyMjuGX8lVEWutnuje2 52OhLvm0qcJEAakSHyJNydQ GH6A73v x5X0GZJoQLHwIUC4oMB0xX1 hbGlnbjogbGVmdDsgdmVydG voADtfGBcgH011WCCjlAwjD lBheWVy OjwvdGQ+YR19tt93W9PmFne hWiq3KZXsMZC6rXF0uG5kDL TbJEbmx4U6eCV9H0VdlzTkk m0ha9vi YXBz (more content not included)... [facility] In[facility] Clinical Summaryon 11-28-2022 Inpatient Clinical Summary [address] [address] Clinical Summary Person Information Name: DRISS COPE Chela/[facility]Export Age: 27 Years : 1995 Sex: Female PCP: CRUZ RODRÍGUEZ MD Marital Status: Single Race: White Ethnicity: Non- or Language: Paraguayan Visit Id: Visit Reason: CRAMPING, VAGINAL PAIN Speciality: Acuity: Obs Enc Type: OB Triage Med Service: Obstetrics Arrival: 11/27/2022 13:42:15 Discharge: 11/27/2022 22:26:00 Dispo Type: Short-Term Hosp as IP Address: [address] [place] [phone] Provider Notes: Diagnosis: Problems Active (07/14/2022) Recurrent UTI Nocturia Postinfective urethral stricture in female Headache Microscopic hematuria UTI symptoms Abnormal uterine bleeding Dysmenorrhea Smoking Status: Never Smoker Functional Status: Sensory Deficits: History of Falls: Mobility Assistance Prior to Admission: ADLs: Current Level of Assistance for Self-Care/Mobility: Cognitive Status: Allergies No Known Medication Allergies Laboratory or Other Results This Visit (last charted value for your 11/27/2022 visit) Hematology 11/27/2022 3:14 PM Hct: 34.2 % -- Normal range between ( 34.0 and 46.0 ) HGB: 11.0 gm/dL -- Normal range between ( 12.0 and 16.0 ) RBC: 4.0 E12/L -- Normal range between ( 4.3 and 5.9 ) RDW: 12.9 % -- Normal range between ( 10.9 and 14.2 ) MCH: 27.3 pg -- Normal range between ( 27.0 and 34.0 ) MCHC: 32.3 gm/dL -- Normal range between ( 31.4 and 36.0 ) MCV: 84.6 fL -- Normal range between ( 80.0 and 100.0 ) MPV: 8.2 fL -- Normal range between ( 6.4 and 10.8 ) Platelet: 273.0 E9/L -- Normal range between ( 150.0 and 500.0 ) WBC: 15.7 E9/L -- Normal range between ( 4.0 and 11.0 ) Coagulation 11/27/2022 3:14 PM FSP: >10 and <40 INR: 0.9 Fibrinogen: 539 mg/dL -- Normal range between ( 200 and 393 ) PT: 10.1 second(s) -- Normal range between ( 9.4 and 12.5 ) PTT: 25.3 second(s) -- Normal range between ( 25.1 and 36.5 ) Urinalysis 11/27/2022 1:55 PM UA Bili: Negative UA Color: Yellow UA Glucose: Negative UA Ketones: Negative UA Leuk Est: Negative UA Nitrite: Negative UA Protein: Negative UA RBC: 4-20 /HPF UA Squam Epithelial: 3-4 /HPF UA Urobilinogen: 0.2 EU/dL -- Normal range between ( 0.0 and 1.0 ) UA WBC: 0-5 /HPF UA Spec Desc: Clean Catch UA Blood: 1+ UA Clarity: Clear UA pH: 6.5 -- Normal range between ( 5.0 and 9.0 ) UA Spec Grav: 1.010 -- Normal range between ( 1.005 and 1.030 ) Chemistry 11/27/2022 6:54 PM FTI: 5.98 ng/dL -- Normal range between ( 5.90 and 13.10 ) T3 Uptake: 31.9 % -- Normal range between ( 32.0 and 48.4 ) T4: 7.5 mcg/dL -- Normal range between ( 4.6 and 9.1 ) TSH: 1.65 mcIU/mL -- Normal range between ( 0.34 and 5.60 ) 11/27/2022 3:14 PM Creatinine: 0.6 mg/dL -- Normal range between ( 0.5 and 1.3 ) A/G Ratio: 0.8 -- Normal range between ( 1.1 and 2.2 ) AGAP: 16 mEq/L -- Normal range between ( 6 and 16 ) Albumin Lvl: 3.1 gm/dL -- Normal range between ( 3.3 and 5.0 ) Alk Phos: 145 Int._Unit/L -- Normal range between ( 21 and 98 ) ALT: 13 Int._Unit/L -- Normal range between ( 6 and 46 ) AST: 22 Int._Unit/L -- Normal range between ( 5 and 43 ) Bili Direct: <0.1 mg/dL -- Normal range between ( 0.1 and 0.4 ) Bili Total: 1.0 mg/dL -- Normal range between ( 0.0 and 1.1 ) CO2: 18 mmol/L -- Normal range between ( 21 and 31 ) Sodium Lvl: 132 mmol/L -- Normal range between ( 135 and 145 ) Total Protein: 7.1 gm/dL -- Normal range between ( 6.0 and 7.8 ) BUN: 7 mg/dL -- Normal range between ( 5 and 21 ) Potassium Lvl: 3.7 mmol/L -- Normal range between ( 3.5 and 5.3 ) Uric Acid: 4.9 mg/dL -- Normal range between ( 2.2 and 7.4 ) Chloride: 102 mmol/L -- Normal range between ( 101 and 111 ) Bili Indirect: Unable to Calculate mg/dL -- Normal range between ( 0.1 and 0.9 ) eGFR: >60 mL/min/1.73 m2 eGFR AA: >60 mL/min/1.73 m2 Globulin: 4.0 gm/dL -- Normal range between ( 1.4 and 4.0 ) Measurements: Height: 157.5 cm Weight: 66 kg Blood Pressure: 154 mmHg / 97 mmHg BMI: 26.61 kg/m2 Procedures Betamethasone Immunizations No Immunizations Documented This Visit Final Med List: cyclobenzaprine (cyclobenzaprine 10 mg Tab) 1 Tablets By Mouth 3 times a day as needed for spasm. Refills: 0. cyclobenzaprine (cyclobenzaprine 10 mg Tab) 1 Tablets By Mouth 3 times a day as needed Spasm. Refills: 0. cyproheptadine (cyproheptadine 4 mg Tab) By Mouth 3 times a day. ergocalciferol (Vitamin D2 2000 intl units oral capsule) By Mouth every day. hydrOXYzine (hydrOXYzine hydrochloride 25 mg Tab) By Mouth 4 times a day. hyoscyamine (Levsin 0.125 mg SL Tab) 1 Tablets By Mouth every 6 hours. Refills: 1. ibuprofen (ibuprofen 600 mg Tab) 1 Tablets By Mouth every 6 hours. Refills: 0. (more content not included)... [facility] Inpatient Patient Summaryon 11-28-2022 Inpatient Patient Summary [place] [address] Patient Discharge Instructions PERSON INFORMATION Name: DRISS COPE Date of : 1995 Current Date: 11/27/2022 23:40:35 PHYSICIANS Admitting Physician: Fredi DORSEY MD Primary Care Physician: NICK BLACKWELL, CRUZ PCP Comment: Discharge Diagnosis: Condition at Discharge: DRISS COPE has been given the following list of follow-up instructions, prescriptions, and patient education materials: PATIENT FOLLOW-UP INFORMATION Diet: Activity: Wound Care Instructions: Remove Your Dressing IN: Days Call Your Doctor For: IF UNABLE TO CONTACT YOUR PHYSICIAN AND YOU FEEL IT IS AN EMERGENCY, GO TO THE NEAREST EMERGENCY ROOM OR CALL 911 Home Treatment: Devices/Equipment: Special Services: Additional Instructions: Physician to provide the following pending test results: Follow up: In the event that this physician does not participate in your insurance network, please consult with your insurance company to find a nearby participating provider. Comment: Divya SUNILDRISS NIX, have received the attached patient education materials/instructions and have verbalized understanding. Patient Signature Date Clinican/Nurse Signature _ Date MEDICATION LIST Medications to Continue with No Changes Other Medications cyclobenzaprine (cyclobenzaprine 10 mg Tab) 1 Tablets By Mouth 3 times a day as needed for spasm. Refills: 0. Last Dose: __Next Dose: __ cyclobenzaprine (cyclobenzaprine 10 mg Tab) 1 Tablets By Mouth 3 times a day as needed Spasm. Refills: 0. Last Dose: __Next Dose: __ cyproheptadine (cyproheptadine 4 mg Tab) By Mouth 3 times a day. Last Dose: __Next Dose: __ ergocalciferol (Vitamin D2 2000 intl units oral capsule) By Mouth every day. Last Dose: __Next Dose: __ hydrOXYzine (hydrOXYzine hydrochloride 25 mg Tab) By Mouth 4 times a day. Last Dose: __Next Dose: __ hyoscyamine (Levsin 0.125 mg SL Tab) 1 Tablets By Mouth every 6 hours. Refills: 1. Last Dose: __Next Dose: __ ibuprofen (ibuprofen 600 mg Tab) 1 Tablets By Mouth every 6 hours. Refills: 0. Last Dose: __Next Dose: __ multivitamin, ( Multivitamins with Vitamin B Complex, Vitamin C, Minerals and L-Methylfolate oral capsule) 1 Capsules By Mouth every day. Last Dose: __Next Dose: __ naproxen (naproxen 500 mg oral enteric coated tablet) 1 Tablets By Mouth 2 times a day. Refills: 0. Last Dose: __Next Dose: __ naproxen (naproxen 500 mg Tab) 1 Tablets By Mouth 2 times a day. Take one tab by mouth two times a day. Refills: 0. Last Dose: __Next Dose: __ ondansetron (Zofran 4 mg Tab) By Mouth every 6 hours as needed Nausea. Last Dose: __Next Dose: __ phenazopyridine (Pyridium 200 mg Tab) 1 Tablets By Mouth 3 times a day. Take one tab by mouth three times a day for three days. Refills: 0. Last Dose: __Next Dose: __ sumatriptan (Imitrex 100 mg Tab) By Mouth Once. Last Dose: __Next Dose: __ Pharmacy Information: [facility]al[facility] PATIENT EDUCATION INFORMATION Instructions: Medication Leaflets: You may receive a survey from Tony Leggett asking you to rate your care experience. Your feedback is important and will help us understand what we do well and how we can improve the quality of care we provide to you, your loved ones and our community. It?s an honor to serve you. Thank you for choosing [facility] Insurance Correspondenceon 0 11-28-2022 Insurance Correspondence [id number]#1.00 CD:127 [facility] Nursing Assessmenton Nursing Assessment [id number] 020 [id number]#1.00 CD:127 [facility] Transfer Documentson 023 Transfer Documents 88. 020 [id number]#1.00 CD:127 [facility] Transfer Documents .88. 020 [id number]#1.00 CD:127 [facility] Transfer Documents . 020 [id number]#1.00 CD:127 [facility] Comment on above: Other Comment: Not l abeled Transfer Documents 88. 020 [id number]#1.00 CD:127 [facility] BB Draw & Holdon 11-27-2022 BB D&H Sample drawn for Blo od Ba [facility] Comment on above: Performed By: #### 2 681417, 5432477, 7150671, 3805582, 8727451, 11373233, 8284262, 3053461, 82800058, 6795069, 93058901 ####[facility] [address] [place] [address] BUNon 11-27-2022 Urea nitrogen [Mass/Vol] 7 mg/dL Normal 5-21 [facility] Comment on above: Performed By: #### 2 985149, 7625614, 4573473, 0272571, 5249627, 26185564, 8022952, 6135313, 34820073, 9956745, 73657906 #### [facility] [address] [place] [address] CBC w/Indiceson 11-27-2022 Erythrocyte distribution width (RBC) [Ratio] 12.9 % Normal 10.9-14.2 [facility] Comment on above: Performed By: #### 2 742768, 5200532, 4930393, 5836750, 2277386, 63646431, 7450007, 9228305, 03552478, 4753241, 89442419 ####[facility] [address] [place] [address] Hematocrit (Bld) [Volume fraction] 34.2 % Normal 34.0-46.0 [facility] Comment on above: Performed By: #### 2 705007, 6145808, 6127022, 4700646, 4195694, 51748065, 7103796, 7656729, 59080916, 1481429, 17179630 ####[facility] [address] [place] [address] Hemoglobin (Bld) [Mass/Vol] 11.0 g/dL Low 12.0-16.0 [facility] Comment on above: Performed By: #### 2 525716, 9755535, 0746319, 3928196, 6850203, 51462138, 9610850, 5124673, 58057996, 7277236, 91215811 ####[facility] [address] [place] [address] MCH (RBC) [Entitic mass] 27.3 pg Normal 27.0-34.0 [facility] Comment on above: Performed By: #### 2 998665, 6928407, 6216108, 8580053, 4205377, 17716767, 4161012, 8220063, 36581033, 7494073, 13051990 ####[facility] [address] [place] [address] MCHC (RBC) [Mass/Vol] 32.3 g/dL Normal 31.4-36.0 [facility] Comment on above: Performed By: #### 2 567882, 8531298, 1519753, 1422909, 3351734, 71146502, 6215593, 1079657, 27872039, 4696015, 80549751 ####[address] [address] MCV (RBC) [Entitic vol] 84.6 fL Normal 80.0-100.0 [facility] Comment on above: Performed By: #### 2 868211, 9076067, 1824345, 2694476, 1041226, 57930614, 5478797, 6801192, 51914973, 8444017, 43819113 ####[address] [address] Platelet mean volume (Bld) [Entitic vol] 8.2 fL Normal 6.4-10.8 [facility] Comment on above: Performed By: #### 2 097759, 9583749, 6102803, 5119523, 8127851, 13331103, 7864290, 5341368, 81284084, 5320689, 62253075 ####[address] [address] Platelets (Bld) [#/Vol] 273.0 E9/L Normal 150.0-500.0 [facility] Comment on above: Performed By: #### 2 855274, 1254295, 0992462, 8688918, 9823641, 41764625, 2643090, 1341623, 27892788, 8575190, 24815080 ####[place] [address] [place] [address] RBC (Bld) [#/Vol] 4.0 E12/L Low 4.3-5.9 [facility] Comment on above: Performed By: #### 2 820640, 7908368, 7163162, 5516524, 7198988, 14815958, 7397966, 9479618, 47054329, 7094073, 71904130 ####[facility] [address] [place] [address] WBC corrected for nucl RBC Auto (Bld) [#/Vol] 15.7 E9/L High 4.0-11.0 [facility] Comment on above: Result Comment: Slid e reviewed by ts Unable to obtain accurate platelet count due to platelet clumping. Platelet count estimate appears normal on slide.. Performed By: #### 2 373897, 5560925, 6700944, 2165736, 5157816, 55415524, 1638437, 6428003, 32353081, 3214932, 42609132 ####[facility] [address] [place] [address] CHEMISTRYOrdered By: SYSTEM SYSTEM on 11-27-2022 Free T4 index Calc [Mass/Vol] 5.98 ng/dL Normal 5.90 - 13.10 ng/dL [facility] T4 [Mass/Vol] 7.5 ug/dL Normal 4.6 - 9.1 mcg/dL [facility] T4 uptake [Mass/Vol] 31.9 % Low 32.0 - 48.4 % [facility] TSH Qn 1.65 m[IU]/L Normal 0.34 - 5.60 mcIU/mL [facility] Albumin [Mass/Vol] 3.1 g/dL Low 3.3 - 5.0 gm/dL [facility] Albumin/Globulin [Mass ratio] 0.8 {ratio} Low 1.1 - 2.2 [facility] ALP [Catalytic activity/Vol] 145 [iU]/d High 21 - 98 Int._Unit/L [facility] ALT No additional P-5'-P [Catalytic activity/Vol] 13 [iU]/d Normal 6 - 46 Int._Unit/L [facility] Anion gap [Moles/Vol] 16 mmol/L Normal 6 - 16 mEq/L F [facility] AST [Catalytic activity/Vol] 22 [iU]/d Normal 5 - 43 Int._Unit/L [facility] Bilirubin [Mass/Vol] 1.0 mg/dL Normal 0.0 - 1 .1 mg/dL [facility] Bilirubin.direct [Mass/Vol] mg/dL Normal 0.1 - 0.4 mg/dL [facility] Bilirubin.indirect [Mass or moles/Vol] Unable to Calculate mg/dL Invalid Interpretation Code 0.1 - 0.9 mg/dL [facility] Chloride [Moles/Vol] 102 mmol/L Normal 101 - 1 11 mmol/L [facility] CO2 [Moles/Vol] 18 mmol/L Low 21 - 31 mmol/L [facility] Creatinine [Mass/Vol] 0.6 mg/dL Normal 0.5 - 1.3 mg/dL [facility] GFR/1.73 sq M.predicted among blacks MDRD (S/P/Bld) [Vol rate/Area] mL/min/1.73 m2 Normal >=59mL/min/1 .73 m2 FT Chem S GFR/1.73 sq M.predicted among non-blacks MDRD (S/P/Bld) [Vol rate/Area] mL/min/1.73 m2 Normal >=59mL/min/1 .73 m2 FT Chem S Globulin (S) [Mass/Vol] 4.0 g/dL Normal 1.4 - 4.0 gm/dL [facility] Potassium [Moles/Vol] 3.7 mmol/L Normal 3.5 - 5.3 mmol/L [facility] Protein [Mass/Vol] 7.1 g/dL Normal 6.0 - 7.8 gm/dL [facility] Sodium [Moles/Vol] 132 mmol/L Low 135 - 145 mmol/L [facility] Urate [Mass/Vol] 4.9 mg/dL Normal 2.2 - 7.4 mg/dL [facility] Urea nitrogen [Mass/Vol] 7 mg/dL Normal 5 - 21 mg/dL [facility] COAGULATIONOrdered By: Amol Jenkins on 11-27-2022 aPTT Coag (PPP) [Time] 25.3 s Normal 25.1 - 36.5 second(s) [facility] Auto Coag Fibrin+Fibrinogen fragments (S) [Mass/Vol] >10 and <40 *ABN* (11/27/22 3:14 PM) Invalid Interpretation Code <10 [facility] [place] Fibrinogen Coag (PPP) [Mass/Vol] 539 mg/dL High 200 - 393 mg/dL [facility] Auto Coag INR Coag (PPP) [Relative time] 0.9 {INR} Invalid Interpretation Code [facility] Auto Coag PT Coag (PPP) [Time] 10.1 s Normal 9.4 - 1 2.5 second(s) [facility] Auto Coag Consent for Treatmenton Consent for Treatment [id number] D:127 [facility] Creatinineon 11-27-2022 Creatinine [Mass/Vol] 0.6 mg/dL Normal 0.5-1.3 [facility] Comment on above: Performed By: #### 2 250503, 9521624, 7187352, 3311595, 2821875, 59392324, 3675214, 0197736, 17203141, 4413208, 09183827 #### [facility] [address] [place] [address] FSPon 11-27-2022 Fibrin+Fibrinogen fragments (S) [Mass/Vol] >10 and <40 Abnormal <10 [facility] Comment on above: Performed By: #### 2 922040, 2074920, 6922851, 6259201, 6765524, 55810554, 4301668, 5346574, 39746094, 4721018, 30392779 ####[facility] [address] [place] [address] Fibrinogenon 11-27-2022 Fibrinogen Coag (PPP) [Mass/Vol] 539 mg/dL High 200-393 [facility] Comment on above: Performed By: #### 2 921318, 0332311, 2074572, 2747603, 3947021, 32609795, 0951755, 6773283, 33729021, 0404948, 37853682 #### [facility] [address] [place] [address] HEMATOLOGYOrdered By: Raquel Arteaga on 11-27-2022 Erythrocyte distribution width (RBC) [Ratio] 12.9 % Normal 10.9 - 14.2 % [facility]SS Hematocrit (Bld) [Volume fraction] 34.2 % Normal 34.0 - 46.0 % [facility] Hemoglobin (Bld) [Mass/Vol] 11.0 g/dL Low 12.0 - 16.0 gm/dL [facility] HemeAutoSS MCH (RBC) [Entitic mass] 27.3 pg Normal 27.0 - 34.0 pg [facility]eAutoSS MCHC (RBC) [Mass/Vol] 32.3 g/dL Normal 31.4 - 36.0 gm/dL [facility]eAutoSS MCV (RBC) [Entitic vol] 84.6 fL Normal 80.0 - 100.0 fL [facility]eAutoSS Platelet mean volume (Bld) [Entitic vol] 8.2 fL Normal 6.4 - 10.8 fL [facility] HemeAutoSS Platelets (Bld) [#/Vol] 273.0 E9/L Normal 150.0 - 500.0 E9/L [facility]eAutoSS RBC (Bld) [#/Vol] 4.0 E12/L Low 4.3 - 5.9 E12/L [facility]eAutoSS WBC corrected for nucl RBC Auto (Bld) [#/Vol] 15.7 E9/L High 4.0 - 11.0 E9/L [facility] Comment on above: Result Comment: Slid e reviewed by ts Unable to obtain accurate platelet count due to platelet clumping. Platelet count estimate appears normal on slide.. Hep Func Panelon 11-27-2022 Bilirubin.indirect [Mass or moles/Vol] UTC Abnormal 0.1-0.9 [facility] Comment on above: Result Comment: Resu lt verified by Discern Rule. Performed result UTC (Unable to Calculate) was sent as an Alpha code due the inability to calculate a valid numeric value. Performed By: #### 2 386050, 3999334, 5149559, 9462240, 0892015, 54521730, 2404102, 5012513, 88037959, 9577290, 72958112 ####[facility] [address] [place] [address] Albumin [Mass/Vol] 3.1 g/dL Low 3.3-5.0 [facility] Comment on above: Performed By: #### 2 952636, 3324863, 6646017, 9567563, 4504454, 27721722, 5832135, 0632189, 23663398, 6598806, 22891839 ####[facility] [address] [place] [address] Albumin/Globulin (S) [Mass conc ratio] 0.8 Low 1.1-2.2 [facility] Comment on above: Performed By: #### 2 592740, 0032837, 0035512, 2213933, 9115944, 56248200, 6237285, 0443778, 05053079, 6998515, 13341987 ####[place] [address] [place] [address] ALP [Catalytic activity/Vol] 145 Int._Unit/L High 21-98 [facility] Comment on above: Performed By: #### 2 076395, 1220247, 0588097, 4150325, 4578433, 29509001, 0135739, 6573929, 69375199, 7252728, 96337227 ####[facility] [address] [place] [address] ALT No additional P-5'-P [Catalytic activity/Vol] 13 Int._Unit/L Normal 6-46 [facility] Comment on above: Performed By: #### 2 178213, 7365416, 5794394, 1916853, 5879678, 46533334, 9901741, 3127954, 04908741, 3776815, 43646095 ####[facility] [address] [place] [address] AST [Catalytic activity/Vol] 22 Int._Unit/L Normal 5-43 [facility] Comment on above: Performed By: #### 2 793444, 6087967, 7420215, 1653740, 4449753, 23758866, 7851835, 7948115, 15162564, 6557456, 28550933 ####[facility] [address] [place] [address] Bilirubin [Mass/Vol] 1.0 mg/dL Normal 0.0-1.1 [facility] Comment on above: Performed By: #### 2 305883, 3601752, 2540915, 4947143, 7166092, 73795906, 9408716, 5896858, 96706745, 8124566, 13944656 ####[facility] [address] [place] [address] Bilirubin.direct [Mass/Vol] mg/dL Normal 0.1-0.4 [facility] Comment on above: Performed By: #### 2 424086, 1792938, 2477812, 6723936, 2513651, 17229121, 0034126, 5413485, 34649706, 8320686, 03462571 ####[facility] [address] [place] [address] Globulin (S) [Mass/Vol] 4.0 g/dL Normal 1.4-4.0 [facility] Comment on above: Performed By: #### 2 630768, 8036352, 6150915, 0025373, 9593028, 58716095, 7643950, 8018042, 70757061, 4442136, 50562873 ####[facility] [address] [place] [address] Protein [Mass/Vol] 7.1 g/dL Normal 6.0-7.8 [facility] Comment on above: Performed By: #### 2 567900, 9577017, 3301323, 5364555, 7207291, 85785576, 7901426, 0667178, 45489484, 4022332, 63663631 ####[facility] [address] [place] [address] Lyteson 11-27-2022 Anion gap [Moles/Vol] 16 mmol/L Normal 6-16 [facility] Comment on above: Performed By: #### 2 105955, 8144706, 7166092, 8030158, 7327058, 47564419, 0447548, 0921254, 27822243, 9884608, 86664737 #### [facility] [address] [place] [address] Chloride [Moles/Vol] 102 mmol/L Normal 101-111 [facility] Comment on above: Performed By: #### 2 213228, 7297001, 6322483, 6476294, 0735120, 20921386, 0307581, 6525243, 00320764, 3630773, 69130961 #### [facility] [address] [place] [address] CO2 [Moles/Vol] 18 mmol/L Low 21-[address] [facility] Comment on above: Performed By: #### 2 866080, 0243347, 5099055, 4927508, 4865052, 96657219, 5261465, 6353192, 51689152, 4959882, 12704034 #### [facility] [address] [place] [address] Potassium [Moles/Vol] 3.7 mmol/L Normal 3.5-5.3 [facility] Comment on above: Performed By: #### 2 451635, 9639704, 6268542, 2540172, 1611565, 64320075, 4578714, 3645841, 11195971, 2509101, 68357875 #### [facility] [address] [place] [address] Sodium [Moles/Vol] 132 mmol/L Low 135-145 [facility] Comment on above: Performed By: #### 2 553499, 1582923, 8882451, 4843857, 4974235, 20657640, 9373842, 5625565, 84887345, 5520557, 81840134 #### [facility] [address] [place] [address] PT & PTTon 11-27-2022 aPTT Coag (PPP) [Time] 25.3 second(s) Normal 25.1-36.5 [facility] Comment on above: Result Comment: Para meter 15 days - 4 weeks 1 - 5 months 6 - 11 months 1 - 5 years 6 - 10 years 11 - 17 years PTT Mean: 35.4 (27.6-45.6) Mean: 33.5 (24.8-40.7) Mean: 32.4 (25.1-40.7) Mean: 31.6 (24.0-39.2) Mean: 31.6 (26.9-38.7) Mean: 31.0 (24.6-38.4) Pediatric Reference ranges were obtained from a study by Javi Moore et al. prepared from 1437 samples obtained at 7 different centers using the same coagulation reagent and instrumentation as [facility]. Currently there are no coagulation studies available worldwide for children to 14 days, and no normal ranges. Heparin therapeutic range (represented by Anti-Factor Xa activity of 0.2 - 0.4 U/mL) corresponds to PTT of 56.6 - 109.0 sec. Performed By: #### 2 071375, 6778316, 3342446, 1451313, 0104749, 24875403, 8714840, 7769485, 18781423, 9396597, 53923222 #### [facility] [address] [place] [address] INR Coag (PPP) [Relative time] 0.9 {INR} Invalid Interpretation Code [facility] Comment on above: Result Comment: INR results are specifically intended to assess patients stabilized on long-term Anticoagulation therapy suggested INR?s ?Less Intensive Anticoagulation? 2.0 ? 3.0 Conventional Range 3.0 ? 4.5 Performed By: #### 2 172936, 1526586, 6942836, 4290748, 5947607, 53946017, 1510330, 7743426, 65309543, 4868541, 56224269 #### [facility] [address] [place] [address] PT Coag (PPP) [Time] 10.1 second(s) Normal 9.4-12.5 [facility] Comment on above: Result Comment: 15 d ays - 4 weeks 1 - 5 months 6 -11 months 1 ? 5 years 6 ? 10 years 11 -17 years Mean: 11.2 (9.5 ? 12.6) Mean: 11.0 (9.7 ? 12.8) Mean: 11.0 (9.8 ? 13.0) Mean: 11.3 (9.9 ? 13.4) Mean: 11.7 (10.0 ? 14.6) Mean: 11.8 (10.0 - 14.1) Pediatric Reference ranges were obtained from a study by Javi Moore et al. prepared from 1437 samples obtained at 7 different centers using the same coagulation reagent and instrumentation as [facility]. Currently there are no coagulation studies available worldwide for children to 14 days, and no normal ranges. Performed By: #### 2 464345, 7926525, 0416626, 2393067, 8084021, 97823928, 6787233, 9623151, 89009064, 3909779, 02958853 #### [facility] [address] [place] [address] Thyroid IIon 11-27-2022 TSH Qn 1.65 m[IU]/L Normal 0.34-5.60 [facility] Comment on above: Performed By: #### 1 9739831 ####[facility] [address] [place] [address] Free T4 index Calc [Mass/Vol] 5.98 ng/dL Normal 5.90-13.10 [facility] Comment on above: Performed By: #### 1 1503285 ####[facility] [address] [place] [address] T4 [Mass/Vol] 7.5 microgram/dL Normal 4.6-9.1 [facility] Comment on above: Performed By: #### 1 9471480 ####[place] [address] [place] [address] T4 uptake [Mass/Vol] 31.9 % Low 32.0-48.4 [facility] Comment on above: Performed By: #### 1 1615350 ####[facility] [address] [place] [address] UA With Cult Reflexon 2022 Bilirubin Ql (U) Negative Normal Negative [facility] Comment on above: Performed By: #### 1 7383542 ####[facility] [address] [place] [address] Clarity (U) CLEAR Normal Clear [facility] Comment on above: Performed By: #### 1 7861717 ####[place] [address] [place] [address] Color (U) YELLOW Normal Yellow [facility] Comment on above: Performed By: #### 1 1762806 ####[facility] [address] [place] [address] Epithelial cells.squamous LM.HPF (Urine sed) [#/Area] 3-4 Normal 0-2 [facility] Comment on above: Performed By: #### 1 8957206 ####[facility] [address] [place] [address], [place] [address] Glucose Test strip (U) [Mass/Vol] Negative Normal Negative [facility] Comment on above: Performed By: #### 1 3462647 ####[facility] [address] [place] [address] Hemoglobin Ql (U) 1+ Abnormal Negative [facility] Comment on above: Performed By: #### 1 8118080 ####[facility] [address] [place] [address] Ketones (U) [Mass/Vol] Negative Normal Negative [facility] Comment on above: Performed By: #### 1 9560724 ####[facility] [address] [place] [address] [facility].plasma/Lithiu m.RBC (Bld) [Mass ratio] 4-20 Normal 0-3 [facility] Comment on above: Performed By: #### 1 2435745 ####[facility] [address] [place] [address] Nitrite Ql (U) Negative Normal Negative [facility] Comment on above: Performed By: #### 1 1870495 ####[place] [address] pH (U) 6.5 [pH] Invalid Interpretation Code 5.0-9.0 [facility] Comment on above: Performed By: #### 1 2297322 ####[address] [address] Protein (U) [Mass/Vol] Negative Normal Negative [facility] Comment on above: Performed By: #### 1 6205798 ####[address] [address] Specific gravity (U) [Rel density] 1.010 Invalid Interpretation Code 1.005-1.030 [facility] Comment on above: Performed By: #### 1 3717669 ####[place] [address] Type of Urine collection method Clean Catch Normal [facility] Comment on above: Performed By: #### 1 1407686 ####[place] [address] Urobilinogen Qn (U) 0.2 {Aspen'U}/dL Normal 0.0-1.0 [facility] Comment on above: Performed By: #### 1 [id number] ####[address] [address] WBC Auto Ql (U) Negative Normal Negative [facility] Comment on above: Performed By: #### 1 [id number] ####[place] [id number] WBC LM.HPF (Urine sed) [#/Area] 0-5 Normal 0-5 [facility] Comment on above: Performed By: #### 1 [id number] ####[address] [address] URINALYSISOrdered By: Rufus Jenkins on 11-27-2022 Bilirubin Ql (U) Negative (11/27/22 1:55 PM) Normal Negative [facility] Auto SS Clarity (U) Clear (11/27/22 1:55 PM) Normal Clear [facility] UA Auto SS Color (U) Yellow (11/27/22 1:55 PM) Normal Yellow [facility] UA Auto SS Epithelial cells.squamous LM.HPF (Urine sed) [#/Area] 3-4 /HPF Normal 0-2/HPF [facility] UA Aut o SS Glucose Test strip (U) [Mass/Vol] Negative (11/27/22 1:55 PM) Normal Negative [facility] UA Auto SS Hemoglobin Ql (U) 1+ *ABN* (11/27/22 1:55 PM) Invalid Interpretation Code Negative [facility] UA Auto SS Ketones (U) [Mass/Vol] Negative (11/27/22 1:55 PM) Normal Negative [facility] UA Auto SS [place].plasma/Lithiu m.RBC (Bld) [Mass ratio] 4-20 /HPF Normal 0-3/HPF [facility] UA Auto SS Nitrite Ql (U) Negative (11/27/22 1:55 PM) Normal Negative [facility] UA Auto SS pH (U) 6.5 *NA* (11/27/22 1:55 PM) Invalid Interpretation Code 5.0 - 9.0 [facility] UA Auto SS Protein (U) [Mass/Vol] Negative (11/27/22 1:55 PM) Normal Negative [facility] UA Auto SS Specific gravity (U) [Rel density] 1.010 *NA* (11/27/22 1:55 PM) Invalid Interpretation Code 1.005 - 1.030 [facility] UA Auto SS UA Spec Desc Clean Catch (11/27/22 1:55 PM) Normal [facility] UA Auto SS Urobilinogen Qn (U) 0.8287972 {Aspen'U}/dL Normal 0.0 - 1.0 EU/dL [facility] UA Auto SS WBC Auto Ql (U) Negative (11/27/22 1:55 PM) Normal Negative [facility] UA Auto SS WBC LM.HPF (Urine sed) [#/Area] 0-5 /HPF Normal 0-5/HPF [facility] UA Auto SS Uric Acidon 11-27-2022 Urate [Mass/Vol] 4.9 mg/dL Normal 2.2-7.4 [facility] Comment on above: Performed By: #### 2 [id number], [id number], [id number], 0159944, 5800906, [id number], 8534762, 9990363, [id number], 1469012, [id number] ####[facility] [address] [place] [address] eGFRon 11-27-2022 GFR/1.73 sq M.predicted among blacks MDRD (S/P/Bld) [Vol rate/Area] mL/min/{1.73_m2} Normal >=59 [facility] Comment on above: Order Comment: Order added by Discern Expert. Result Comment: eGFR is race adjusted. AA=. Performed By: #### 2 [id number], [id number], 3038149, 6232779, 1070472, [id number], 0786634, 5930102, [id number], 7019892, [id number] #### [facility] [address] [place] [address] GFR/1.73 sq M.predicted among non-blacks MDRD (S/P/Bld) [Vol rate/Area] mL/min/{1.73_m2} Normal >=59 [facility] Comment on above: Order Comment: Order added by Discern Expert. Result Comment: Volcanology Professor jose kidney disease could be indicated at eGFR's of less than 60 mL/min/1.73m2. Kidney failure is indicated at less than 15 mL/min/1.73m2. Performed By: #### 2 078516, [id number], 9466960, 4949867, 6693235, 87792760, 1573123, 6600430, 28709861, 9494708, 07779841 #### [facility] [address] [place] [address] Coding Summary.on 09-27-2022 Coding Summary. CD:[id number] Gh0 bWw+PGhlYWQ+NA7RIGQqP23 txFZbjY4BK3rPWD5DJLUSZD ZRAS3HLN7gePM2OMkzD0Epg iAv AyjqwNOoFJ36ARf1GUH0vLl zRVejlE1laRAuZ5n9OtJqQI 61bL92TNtzFQNxNmK3BaYzw jsgbWFy I9jqInQtyURvRgk+PHRhYmx lIHdpZHRoPScxMDAlJyBzdH kiNY5sZz6uHUIdZOZicDjwx HNlOiBj k8vhAROyRHmaCE2icVomK9Z npXN3KZQnt9o0Pj66mEE+PH BwWTC2aFuzZUdox641NkSkj 9xsXPC8 nYAuNNbiBEP6Y78ti5O0CKF dBTZuEAH8fZI5gT7vyBtxkx fiO4EcnDFnWvS8QNB2dNHdc P6mtBmq fitfgC4pRhm+L15JYG6EALS MNL9ZCms8Q7ZoYnvdlKO+PC 11ZLNqXT64aIUpnWWxt2afi Ws5TqTz XQUtFXU7nKxjMLwkn2IeCUC pM20ydFAdw2Q3BZRcbHgggZ SlXyBliXZ1xW3sDTpnhpylu 2hvdzsn Uyozj3ftxv06aJ61G65rQXi dHHWlRXE7EGUqOKLmdKosdb 7tvV7jUj1+GHjwe3jjx9njl Wn8KuAb DLNglbKblSfmPIF1n4HaEt1 7K9NclTfok9KkXhi8yq44fB Nwx2B3zIH0JOjzMOCmnN4dZ WxlZnQ6 CPXmLdAqyB71dEBzFJhpVv6 wuPxpvMsrWL9gNZZqsafbTI McfT3vGCOwfSKxsDfwDS4wH TBpbjtm g962DqYiOGR7QOPboVXzH6K mhH7tEvRyXHPpZXIsF8GbwC OxRMxvW686YSjkRnA0STExi mUvA4Rk WDMweGpvUrB7e3B9Mh7Kb9O djnttTFO1ETrfCSEfWvEpKn FhZlO9U9OmPrb8TAEmtJkoR M2hN7Cp AQWxjyojucdhrEX5HEJnMPE aoV92lXTgQOicEb4lu7P5s9 28MFRzYERwpT42Mp3rrNaeL TBwdCBU hN3yqslda6nyropkJtEbWJQ qELs9ODy1EKTzvPjcXoIjXZ C4YrZ6SSA9oHRysM8vbPmnd lardY2g Oyc+B81ieM8zWDW4BMS3iil fCRKdfsUmTU02OG31C3ViBc wvdGFibGU+PGRpdiBzdHlsZ O2bCoOy j2osy4AjFEcsA2FaKARgHCx pLie4RFEfQGJ0yIO9aM2yCG NiPEeks3A8cAD4F1DlzsKyy g2og2mf VASdCTuiK93wcFUwx1N9OSK cjFH1GYAodFspZwFouL29Nd c+FJPvzRqhc5QeAikqz5fmh 1hieIy6 IiQsKWYesdDrsZdhHOQ2t5W tHn60D91pLBbjPKEmLUXdSR ReVQIqzQgpxw4ktQ0bLc8+P GNvbCB3 bVC4gM1rSQJrFoD3XAnsE31 6RdVvzTXaFndkj4kbd6cnoD o1GfDkDPJalaCooSfeIGU4r 9YrZe56 Y86sGNwzZJIkYRMbSAUxAOS xxSzuhh3pqG9mFv2+PC9jb2 ezew32xS41uNM+JGBnOWQ7y WxlPSdw DRMkcU7cCGebScL7FVWqJuV dvX33uZSoQHjbTa2ihWpscZ xpPE0dAASgtifea258SqIno 2xkIDEw gIFdGEngISZ7A14jf2E0TQW eYSYvTKL3qMA3qD6slEmucf ogbGVmdDsgdmVydGljYWwtY ZvgV565 IHRvcDsnPlBhdGllbnQgTmF bCHc2R6DnMex0BAWidQgdRL 2qhXNjXByyVa0orCvmnNsjC Q1uTERt mvack240YsYgr1thMYBicYS tDIjtJLF3Q75hi0B4OVOmSV LzTLG6bRO3yA8pgCbdjedlf GVmdDsg yfKdqLniQYrjLBvjF482TFR ddKehNwUniuBrXBUbsCU7SX 57UE85pXAlz2Z2lNL9B4RcF GRpbmct epngtZJ6VMTdOQYqfM01Lz1 xrKxrOm0lFITbANO4PNNzqK TpL8KolE0zJsBeDQGlCCBvF 3RleHQt ZTcrD037PFhkFoW6VCAndfR dP3NiBJXogXrwJvQ3m4K9Pv 9RN5J3LY07KG73zSPxp7P8h JN5J6Es VRKdbjfljbyksFE8XCVzFDC rbX77Zq2adZnnYi8fXYZwEZ R2KYGkiZSkJ1AwbL5sWuFqG DAwMDAw T0JroCIuDTmnE829FUosSwN 8XAXmzeGkG9TzVJPafBqtPj K1p3B5Dk1RPOj0MP68LQ26f COwk9Z5 kXH3E2OaKDTmverfkfdmmRK 2RSOnGNHfvB14Lg3wcZwwKw 5aEVWsZDU3QPRlcUXiC1Uey G1lJkGu IXJeAGCkJ9CctVTkHVbaV77 9UDcmOqK4SABchmToV1ArNO OcvTjgLpF7f0K0Ye4QBOLoW D69WAU6 dTS8UI53UB50I2QsQwqvjBX ibGU+PHRhYmxlIHdpZHRoPS dqQJMgKtXrsCejFE7hGz9tN GVyLWNv tGyvqKFxQuAzi6ioZBKuUTf uWU5dbHrcT7SokXY4ZMFtp2 n4Ir18T30yB0OehQH+PGNvb QH3zAD7 yS9bBcBnCrQ2FHiaD611MmO ppGBeUdkfj7zyx1uigVg9Xf K2QMJikvVmiYbmXKH1t3PoB m48S73u IHdpZHRoPSIxNSUiIHZhbGl lmx6fxQ4lRf1+PIWsrRH6eX S3qV4vBxZlFuG7ZDvjX464H nRvcCIv Srfwd8nhx7tkdKk4LeDtWVX aanYpvUpeCCX5n5FjTa37Q4 LizLayk1JuCwy4zy18aFYab 7I0sEJ2 X5VsNPOmomeqrDCsvYjqGB3 iAKYvcwupQQLbbD8vQPGfI9 g3HiIgReS6YQsiV3LepcS0A DEwcHQg PMioXNJ2I22mz3X6VVXxUYX pWBG6rGG0mK1fyXemjxnvlD VmdDsgdmVydGljYWwtYWxpZ 246IHRv wRhgYSDdfR2bMHHydJBmrLv iYY0dYEQthhrrCdSOTpGIFA bxCMKAHYqXTwKWRT61NN52a WDxt3S8 qIJ5O7XnZWNrfvsrtoaihBP 6ODPjHXSiwL00xCWdSCldFq 5bj5V6o050XRMrAMBpwR12N p7yyUxp VNFroIANjB7oktdzw2oqvpi aNxOwYSPlUMm9JZv7HWEvbM ytJmMmWTI3EhJ9VPF0eRUvy A9mnIvs atiloX6nUna+MDQvMDgvMTk 5NTwvdGQ+CMAtCQI3qMqnJG toWEWvpF1eUAGbW4p9EqJiB gV9VTpk N8CfPXYgtslyGm56hV2xWmL rQyD7YJwmO5VxrnD7HXJvkY KtEElkFWN3J24uk4D6CFIaB DAwMDA7 dZG9pE7ioNccxkzsoXKojKx ceoNqeVlkQRfzOWitU723QT GaeMlcLaW8QHkbKSOvJW56M C12sKUa s5K6hEJ8D5QtSNMjwncjojy wsWJ8LUOfPOSrkL03dYBxFC vdUt1bh7I6e881PWXpWSDvq R03Wc5k pTncEBRcmNHEqR5tbqiot3v yrtqdXvEzUJTkQGr9VFf5KC XayVqcTwFvXVL3OkH7PCD0c JRjgK0w rInnydcicH2zLxq+RmVtYWx yZR97EQ52tUCwx5Q9aAC3J2 ToWISppvdfioxcfOL2WUVnT DUwaW47 fFSfQHtlAk7as4P1e985CQN xVALmnC79Ic2bvJruQSDrzR BHsK9ahsivw9ldbaeoApHvZ DAwMDt0 NMr5RROwwRarSiTrHNW8MxJ 9XMA5zIErzD3flEmozidxdP 9wOyc+D5L1dAM6hNSsqXxsf GQ+PC90 uf84D9EqXivrVub6VGEfMOB 7jEP0pU7zTJEySNhzr7K3fO V7R9JwzuVyqb9aq0vvBDWgV PnoI38t sGAmk6C8SVJdxLA6UAYxaJl gOqFflB28Ipm+PGNvbGdyb3 AlNncat2chi0qfuHs5BmWoA SIgdmFs hKyvPKB7i4LpNo89G17sFWw pZHRoPSIzMCUiIHZhbGlnbj 0xfD6vEj5+SVPpuNJ8rDM5x Y5rOaDt XbE7MPrwI801BuKqsNJzRvq ov2qld3ureKj7UdPpNQTfrx UheTnaBXT6i4XnVh23E8Lhu Ogzv3Lw Cmp0ni96zKJdu7H2rZD0M1N yWXYhznkdkHRxuMojOF5gZO BlbnybCBCsfB6dCKXwC3k3W iAwLjA1 WGgpY1WwtqZ7USNgnFNySUD fpGPSqT5bjuxts9vgbpxlHu CrRSMlQSo8SEf7BKCzlLypW iBsZWZ0 LeQ1LSV7nSQgvW0hlNpmafn qgG0mCcp+DCi5x7pbvAIkKT 2fkLN8DZ99NH69dXRqa8M9j QJ0I1Cg SUXuiwjctnymjJM1XPTxDDC fnK37Wv4byHxlNv1jXPMnSH J7QDJgoIDjC4RvvV4kNtIrJ DAwMDAw Z7DvvXNkDQfjI737ADvyYqT 7LRSkldLtO8RzAYVpdRmaRu Z4b4A1Fn8RJC96WU02IS90a KZvw4U1 qXU1C5ToKAFubwgdmrtmxPK 1CLKxGCJecZ63Pv7wyAcyMs 8aGXQdDPJ4LFKoiMIoG0Dzw Z1iJtOk MTBhICSnL7GqiFApGCdzG66 0XLvuSuQ2JRKicjOfY9UzLQ QlsHbdOfF4q5R1Nv7ZCq41H S98KZ02 pDEew4W7dVB2X6NhMHWdhwt lxmpzoXJ3RJCmDFIubV44Mt 8dqOaoGt8lLRNbHNT0RJMcy YFeK5Rf nM4cHwAiTBXfPDLeN2DxbTU pZPzxS329JQcaZdF4HGUevz XlT5JfDVLbpNcxWgY7z1H8Q h9NVJmv jfo6N8YuHylnqLW+QE67HJM hFS69bVQjrEAym2bvpXe3Bh AvOSQhOKX6dDprFJjaw9BzW BKuU86b bGFw (more content not included)... [facility] Consent for Treatmenton 08-27 Consent for Treatment [id number] D:127 Normal [facility] Gest Scr Glu 1 Hron 09-20-20 Glucose [Mass/Vol] 140 mg/dL Normal 55-140 [facility] Comment on above: Result Comment: Posi tive Screen =1 HR > 140mg/dL Performed By: #### 3 [id number], [id number] ####[facility] [address] [place] [address] Hct & Hgbon 09-20-2022 Hematocrit (Bld) [Volume fraction] 29.7 % Low 34.0-46.0 [facility] Comment on above: Performed By: #### 3 [id number], [id number] ####[facility] [address] [place] [address] Hemoglobin (Bld) [Mass/Vol] 10.1 g/dL Low 12.0-16.0 [facility] Comment on above: Performed By: #### 3 [id number], [id number] ####[facility] [address] [place] [address] Physician Orderon 09-20-2022 Physician Order [id number] CD:127 Normal [facility] Complete Blood Count Auto Di ffon 08-23-2022 Basophils (Bld) [#/Vol] 0.0 10*3/uL Normal 0.0-0.2 [facility] Comment on above: Result Comment: PERF ORMED BY: [place] [address] PATHOLOGIST DOOR MANAGER JESUS JIN M.D. Performed By: #### M G, CMP, CBC #### [facility] [address] [place] [address] [place] Basophils/100 WBC (Bld) 0.4 % Normal . [facility] Comment on above: Performed By: #### M G, CMP, CBC #### [facility] [address] [place] [address] [place] Eosinophils (Bld) [#/Vol] 0.0 10*3/uL Normal 0.0-0.45 [facility] Comment on above: Performed By: #### M G, CMP, CBC #### [facility] [address] [place] [address] [place] Eosinophils/100 WBC (Bld) 0.5 % Normal . [facility] Comment on above: Performed By: #### M G, CMP, CBC #### [facility] [address] Erythrocyte distribution width (RBC) [Ratio] 13.0 % Normal 11.9-15.3 [facility] Comment on above: Performed By: #### M G, CMP, CBC #### [address] Hematocrit (Bld) [Volume fraction] 33.9 % Low 34.0-46.4 [facility] Comment on above: Performed By: #### M G, CMP, CBC #### [facility] [address] Hemoglobin (Bld) [Mass/Vol] 11.3 g/dL Low 11.8-15.4 [facility] Comment on above: Performed By: #### M G, CMP, CBC #### [place] [address] [place] Lymphocytes (Bld) [#/Vol] 1.7 10*3/uL Normal 1.00-4.8 [facility] Comment on above: Performed By: #### M G, CMP, CBC #### [facility] [address] [place] [address] [place] Lymphocytes/100 WBC (Bld) 18.4 % Normal . [facility] Comment on above: Performed By: #### M G, CMP, CBC #### [facility] [address] [place] [address] [place] MCH (RBC) [Entitic mass] 28.8 pg Normal 24.7-34.3 [facility] Comment on above: Performed By: #### M G, CMP, CBC #### [facility] [address] [place] [address] [place] MCV (RBC) [Entitic vol] 86.5 fL Normal 80-100 [facility] Comment on above: Performed By: #### M G, CMP, CBC #### [facility] [address] Mean Corpuscular HGB Conc 33.3 g/dL Normal 32.0-35.0 [facility] Comment on above: Performed By: #### M G, CMP, CBC #### [facility] [address] Monocytes (Bld) [#/Vol] 0.7 10*3/uL Normal 0.0-0.8 [facility] Comment on above: Performed By: #### M G, CMP, CBC #### [facility] [address] Monocytes/100 WBC (Bld) 7.7 % Normal . [facility] Comment on above: Performed By: #### M G, CMP, CBC #### [address] Neutrophils (Bld) [#/Vol] 6.8 10*3/uL Normal 1.8-7.7 [facility] Comment on above: Performed By: #### M G, CMP, CBC #### [place] [address] [place] Neutrophils/100 WBC (Bld) 73.0 % Normal . [facility] Comment on above: Performed By: #### M G, CMP, CBC #### [facility] [address] [place] [address] [place] Nucleated RBC/100 WBC (Bld) [Ratio] 0.1 % Normal 0-0.5 [facility] Comment on above: Performed By: #### M G, CMP, CBC #### [facility] [address] [place] [address] [place] Platelet mean volume (Bld) [Entitic vol] 8.1 fL Normal 6.3-10.7 [facility] Comment on above: Performed By: #### M G, CMP, CBC #### [facility] [address] [place] [address] [place] Platelets (Bld) [#/Vol] 305 10*3/uL Normal 150-450 [facility] Comment on above: Performed By: #### M Yomaira, CMP, CBC #### [facility] [address] [place] [address] RBC (Bld) [#/Vol] 3.92 10*6/uL Normal 3.60-5.00 [facility] Comment on above: Performed By: #### M Yomaira, CMP, CBC #### [address] WBC (Bld) [#/Vol] 9.3 10*3/uL Normal 4.5-11.0 [facility] Comment on above: Performed By: #### M Yomaira CMP, CBC #### [address] Comprehensive Metabolic Pane siomara 08-23-2022 Albumin [Mass/Vol] 3.4 g/dL Normal 3.2-5.5 [facility] Comment on above: Performed By: #### M Yomaira, CMP, CBC #### [address] Albumin/Globulin [Mass ratio] 1.2 {ratio} Normal [facility] Comment on above: Performed By: #### Daniel Burnette, CMP, CBC #### [address] ALP [Catalytic activity/Vol] 56 U/L Normal 32-92 [facility] Comment on above: Performed By: #### M Yomaira, CMP, CBC #### [facility] [address] [place] [address] ALT [Catalytic activity/Vol] 26 U/L Normal 10-60 [facility] Comment on above: Performed By: #### M Yomaira CMP, CBC #### [address] Anion gap [Moles/Vol] 12.9 mmol/L Normal 6.0-15.0 [facility] Comment on above: Performed By: #### Daniel Burnette, CMP, CBC #### [address] [place] [address] [facility] AST [Catalytic activity/Vol] 22 U/L Normal 10-42 [facility] Comment on above: Performed By: #### M Yomaira CMP, CBC #### [facility] [address] [place] [id number] [place] Bilirubin [Mass/Vol] 1.0 mg/dL Normal 0.3-1.2 [facility] Comment on above: Performed By: #### Daniel Burnette CMP, CBC #### [facility] [address] [place] [address] [place] Calcium [Mass/Vol] 9.2 mg/dL Normal 8.2-10.2 [facility] Comment on above: Performed By: #### Daniel Burnette CMP, CBC #### [address] Chloride [Moles/Vol] 100 mmol/L Normal 95-114 [facility] Comment on above: Performed By: #### M Yomaira CMP, CBC #### [place] [address] [place] CO2 [Moles/Vol] 23.0 mmol/L Normal 22.0-30.0 [facility] Comment on above: Performed By: #### Daniel Burnette CMP, CBC #### [place] [address] [place] Creatinine [Mass/Vol] 0.53 mg/dL Normal 0.44-1.03 [facility] Comment on above: Performed By: #### Daniel Burnette CMP, CBC #### [facility] [address] [place] [address] [place] Estimated GFR ( [place] > 60 Normal [facility] Comment on above: Result Comment: GFR estimated reference range: According to KDOQI guidelines, <60 ml/min/1.73m2 is sufficient to diagnose a patient with chronic kidney disease. Performed By: #### Daniel Burnette CMP, CBC #### [facility] [address] [place] [address] [place] Estimated GFR (Non- Am > 60 Normal [facility] Comment on above: Performed By: #### M G, CMP, CBC #### [facility] [address] Globulin (S) [Mass/Vol] 2.9 g/dL Normal [facility] Comment on above: Performed By: #### Daniel Burnette CMP, CBC #### [address] Glucose [Mass/Vol] 85 mg/dL Normal 70-100 [facility] Comment on above: Result Comment: [facility] Glucose Reference Range is dependent on time and content of last meal. Glucose of more than 200 mg/dL in a nonstressed, ambulatory subject supports the diagnosis of Diabetes Mellitus. ADA recommended reference range Performed By: #### M HA Burnette, CBC #### [address] Potassium [Moles/Vol] 3.9 mmol/L Normal 3.5-5.1 [facility] Comment on above: Performed By: #### Daniel Burnette CMP, CBC #### [address] Protein [Mass/Vol] 6.3 g/dL Normal 6.1-7.9 [facility] Comment on above: Performed By: #### Daniel Burnette CMP, CBC #### [address] Sodium [Moles/Vol] 132 mmol/L Low 136-146 [facility] Comment on above: Performed By: #### Daniel Burnette CMP, CBC #### [facility] [address] [place] [address] Urea nitrogen [Mass/Vol] 5 mg/dL Low 9-23 [facility] Comment on above: Performed By: #### Daniel Burnette CMP, CBC #### [facility] [address] [place] [address] Magnesiumon 08-23-2022 Magnesium [Mass/Vol] 1.6 mg/dL Normal 1.6-2.6 [facility] Comment on above: Result Comment: PERF ORMED BY: [place] [address] PATHOLOGIST DOOR MANAGER JESUS JIN M.D. Performed By: #### M G, CMP, CBC #### [facility] [address] CHEMISTRYOrdered By: SYSTEM SYSTEM on 07-14-2022 Albumin [Mass/Vol] 3.6 g/dL Normal 3.3 - 5.0 gm/dL [facility] Albumin/Globulin [Mass ratio] 1.1 {ratio} Normal 1.1 - 2.2 [facility] ALP [Catalytic activity/Vol] 41 [iU]/d Normal 21 - 98 Int._Unit/L [facility] ALT No additional P-5'-P [Catalytic activity/Vol] 19 [iU]/d Normal 6 - 46 Int._Unit/L [facility] Anion gap [Moles/Vol] 11 mmol/L Normal 6 - 16 mEq/L [facility] AST [Catalytic activity/Vol] 21 [iU]/d Normal 5 - 43 Int._Unit/L [facility] Bilirubin [Mass/Vol] 0.7 mg/dL Normal 0.0 - 1 .1 mg/dL [facility] Bilirubin.direct [Mass/Vol] 0.1 mg/dL Normal 0.1 - 0.4 mg/dL [facility] Bilirubin.indirect [Mass or moles/Vol] 0.6 mg/dL Normal 0.1 - 0.9 mg/dL [facility] Calcium [Mass/Vol] 8.9 mg/dL Normal 8.9 - 11. 1 mg/dL [facility] Chloride [Moles/Vol] 107 mmol/L Normal 101 - 1 11 mmol/L [facility] CO2 [Moles/Vol] 22 mmol/L Normal 21 - 31 mmol/L [facility] Creatinine [Mass/Vol] 0.6 mg/dL Normal 0.5 - 1.3 mg/dL [facility] GFR/1.73 sq M.predicted among blacks MDRD (S/P/Bld) [Vol rate/Area] mL/min/1.73 m2 Normal >=59mL/min/1 .73 m2 [facility] Chem S GFR/1.73 sq M.predicted among non-blacks MDRD (S/P/Bld) [Vol rate/Area] mL/min/1.73 m2 Normal >=59mL/min/1 .73 m2 [facility] Chem S Globulin (S) [Mass/Vol] 3.3 g/dL Normal 1.4 - 4.0 gm/dL [facility] Remisol Glucose [Mass/Vol] 99 mg/dL Normal 55 - 199 mg/dL [facility] Remisol Potassium [Moles/Vol] 3.5 mmol/L Normal 3.5 - 5.3 mmol/L [facility] Remisol Protein [Mass/Vol] 6.9 g/dL Normal 6.0 - 7.8 gm/dL [facility] Remisol Sodium [Moles/Vol] 136 mmol/L Normal 135 - 145 mmol/L [facility] Remisol Urea nitrogen [Mass/Vol] 8 mg/dL Normal 5 - 21 mg/dL [facility] Remisol Urea nitrogen/Creatinine [Mass ratio] 13 mg/mg Normal 10 - 20 [facility] Remisol HEMATOLOGYOrdered By: SYSTEM SYSTEM on 07-14-2022 Basophils/100 WBC (Bld) 0.3 % Normal 0.0 - 2.0 % [facility] HemeAutoSS Basophils/Leukocytes Auto (Bld) [Pure # fraction] 0.0 E9/L Normal 0.0 - 0.2 E9/L [facility]eAutoSS Eosinophils/100 WBC (Bld) 0.0 % Normal 0.0 - 8.0 % [facility]eAutoSS Eosinophils/Leukocyte s Auto (Bld) [Pure # fraction] 0.0 E9/L Normal 0.0 - 0.5 E9/L [facility] Lymphocytes/100 WBC (Bld) 6.9 % Low 14.0 - 50.0 % [facility]eAutoSS Lymphocytes/Leukocyte s Auto (Bld) [Pure # fraction] 1.0 E9/L Normal 1.0 - 4.0 E9/L [facility] Monocytes/100 WBC (Bld) 4.1 % Normal 4.0 - 14.0 % [facility]eAutoSS Monocytes/Leukocytes Auto (Bld) [Pure # fraction] 0.6 E9/L Normal 0.2 - 1.0 E9/L [facility] Neutrophils/100 WBC (Bld) 88.7 % High 36.0 - 75.0 % [facility]SS Neutrophils/Leukocyte s Auto (Bld) [Pure # fraction] 12.3 E9/L High 2.0 - 7.5 E9/L [facility] HEMATOLOGYOrdered By: Teena Quiroz on 07-14-2022 Erythrocyte distribution width (RBC) [Ratio] 12.9 % Normal 10.9 - 14.2 % [facility]SS Hematocrit (Bld) [Volume fraction] 33.6 % Low 34.0 - 46.0 % [facility] Hemoglobin (Bld) [Mass/Vol] 11.5 g/dL Low 12.0 - 16.0 gm/dL [facility] MCH (RBC) [Entitic mass] 28.5 pg Normal 27.0 - 34.0 pg [facility] MCHC (RBC) [Mass/Vol] 34.1 g/dL Normal 31.4 - 36.0 gm/dL [facility] MCV (RBC) [Entitic vol] 83.5 fL Normal 80.0 - 100.0 fL [facility] Platelet mean volume (Bld) [Entitic vol] 8.1 fL Normal 6.4 - 10.8 fL [facility] Platelets (Bld) [#/Vol] 271.0 E9/L Normal 150.0 - 500.0 E9/L [facility] RBC (Bld) [#/Vol] 4.0 E12/L Low 4.3 - 5.9 E12/L [facility] WBC corrected for nucl RBC Auto (Bld) [#/Vol] 13.9 E9/L High 4.0 - 11.0 E9/L [facility] URINALYSISOrdered By: Alliso n Tawana on 07-14-2022 Bacteria LM Ql (Urine sed) Trace /HPF Normal Trace/HPF [facility] UA Auto SS Bilirubin Ql (U) Negative (07/14/22 5:00 AM) Normal Negative [facility] UA Auto SS Clarity (U) Clear (07/14/22 5:00 AM) Normal Clear [facility] UA Auto SS Color (U) Yellow (07/14/22 5:00 AM) Normal Yellow [facility] UA Auto SS Epithelial cells.squamous LM.HPF (Urine sed) [#/Area] 3-4 /HPF Normal 0-2/HPF [facility] UA Aut o SS Glucose Test strip (U) [Mass/Vol] Negative (07/14/22 5:00 AM) Normal Negative [facility] UA Auto SS Hemoglobin Ql (U) Trace *ABN* (07/14/22 5:00 AM) Invalid Interpretation Code Negative [facility] UA Auto SS Ketones (U) [Mass/Vol] Negative (07/14/22 5:00 AM) Normal Negative [facility] UA Auto SS [place].plasma/Lithiu m.RBC (Bld) [Mass ratio] 0-3 /HPF Normal 0-3/HPF [facility] UA Auto SS Mucus Ql (Urine sed) Trace (07/14/22 5:00 AM) Normal [facility]A Auto SS Nitrite Ql (U) Negative (07/14/22 5:00 AM) Normal Negative [facility] UA Auto SS pH (U) 6.0 *NA* (07/14/22 5:00 AM) Invalid Interpretation Code 5.0 - 9.0 [facility] [place] Protein (U) [Mass/Vol] Negative (07/14/22 5:00 AM) Normal Negative [facility] UA Auto SS Specific gravity (U) [Rel density] 1.020 *NA* (07/14/22 5:00 AM) Invalid Interpretation Code 1.005 - 1.030 [facility] UA Auto SS UA Spec Desc Clean Catch (07/14/22 5:00 AM) Normal [facility] [place] [facility] Urobilinogen Qn (U) [id number] {Asepn'U}/dL Normal 0.0 - 1.0 EU/dL [facility] UA Auto SS WBC Auto Ql (U) Negative (07/14/22 5:00 AM) Normal Negative [facility] UA Auto SS WBC LM.HPF (Urine sed) [#/Area] 0-5 /HPF Normal 0-5/HPF [facility] UA Auto SS Complete Blood Count Auto Di ffon 05-16-2022 Basophils (Bld) [#/Vol] 0.0 10*3/uL Normal 0.0-0.2 [facility] Comment on above: Order Comment: Reaso n for Exam Encounter for care in first trimester of first preg Result Comment: PERF ORMED BY: [address] [place] [address] PATHOLOGIST DOOR MANAGER JESUS JIN M.D. Performed By: #### R MO W RFX, VZIGG, RUBELLA IGG, HIV SCREEN, HBSAG #### [facility] , #### CUU, CBC, HCGQNT #### [facility] [address] [place] [address] Basophils/100 WBC (Bld) 0.5 % Normal . [facility] Comment on above: Order Comment: Reaso n for Exam Encounter for care in first trimester of first preg Performed By: #### R MO W RFX, VZIGG, RUBELLA IGG, HIV SCREEN, HBSAG #### [facility] , #### CUU, CBC, HCGQNT #### [facility] [address] [place] [address] Eosinophils (Bld) [#/Vol] 0.1 10*3/uL Normal 0.0-0.45 [facility] Comment on above: Order Comment: Reaso n for Exam Encounter for care in first trimester of first preg Performed By: #### R MO W RFX, VZIGG, RUBELLA IGG, HIV SCREEN, HBSAG #### [facility] , #### CUU, CBC, HCGQNT #### [address] Eosinophils/100 WBC (Bld) 0.7 % Normal . [facility] Comment on above: Order Comment: Reaso n for Exam Encounter for care in first trimester of first preg Performed By: #### R MO W RFX, VZIGG, RUBELLA IGG, HIV SCREEN, HBSAG #### [facility] , #### CUU, CBC, HCGQNT #### [place] [facility] [address] [place] [address] Erythrocyte distribution width (RBC) [Ratio] 13.0 % Normal 11.9-15.3 [facility] Comment on above: Order Comment: Reaso n for Exam Encounter for care in first trimester of first preg Performed By: #### R MO W RFX, VZIGG, RUBELLA IGG, HIV SCREEN, HBSAG #### [facility] , #### CUU, CBC, HCGQNT #### [facility] [address] [place] [address] [place] Hematocrit (Bld) [Volume fraction] 37.8 % Normal 34.0-46.4 [facility] Comment on above: Order Comment: Reaso n for Exam Encounter for care in first trimester of first preg Performed By: #### R MO W RFX, VZIGG, RUBELLA IGG, HIV SCREEN, HBSAG #### [facility] , #### CUU, CBC, HCGQNT #### [facility] [address] [place] [address] [place] Hemoglobin (Bld) [Mass/Vol] 12.7 g/dL Normal 11.8-15.4 [facility] Comment on above: Order Comment: Reaso n for Exam Encounter for care in first trimester of first preg Performed By: #### R MO W RFX, VZIGG, RUBELLA IGG, HIV SCREEN, HBSAG #### [facility] , #### CUU, CBC, HCGQNT #### [place] [address] [place] Lymphocytes (Bld) [#/Vol] 2.0 10*3/uL Normal 1.00-4.8 [facility] Comment on above: Order Comment: Reaso n for Exam Encounter for care in first trimester of first preg Performed By: #### R MO W RFX, VZIGG, RUBELLA IGG, HIV SCREEN, HBSAG #### [facility] , #### CUU, CBC, HCGQNT #### [facility] [address] [place] [address] [place] Lymphocytes/100 WBC (Bld) 24.2 % Normal . [facility] Comment on above: Order Comment: Reaso n for Exam Encounter for care in first trimester of first preg Performed By: #### R MO W RFX, VZIGG, RUBELLA IGG, HIV SCREEN, HBSAG #### [facility] , #### CUU, CBC, HCGQNT #### [address] MCH (RBC) [Entitic mass] 28.4 pg Normal 24.7-34.3 [facility] Comment on above: Order Comment: Reaso n for Exam Encounter for care in first trimester of first preg Performed By: #### R MO W RFX, VZIGG, RUBELLA IGG, HIV SCREEN, HBSAG #### [facility] , #### CUU, CBC, HCGQNT #### [address] MCV (RBC) [Entitic vol] 85.0 fL Normal 80-100 [facility] Comment on above: Order Comment: Reaso n for Exam Encounter for care in first trimester of first preg Performed By: #### R MO W RFX, VZIGG, RUBELLA IGG, HIV SCREEN, HBSAG #### [facility] , #### CUU, CBC, HCGQNT #### [address] Mean Corpuscular HGB Conc 33.5 g/dL Normal 32.0-35.0 [facility] Comment on above: Order Comment: Reaso n for Exam Encounter for care in first trimester of first preg Performed By: #### R MO W RFX, VZIGG, RUBELLA IGG, HIV SCREEN, HBSAG #### [facility] , #### CUU, CBC, HCGQNT #### [address] Monocytes (Bld) [#/Vol] 0.8 10*3/uL Normal 0.0-0.8 [facility] Comment on above: Order Comment: Reaso n for Exam Encounter for care in first trimester of first preg Performed By: #### R MO W RFX, VZIGG, RUBELLA IGG, HIV SCREEN, HBSAG #### [facility] , #### CUU, CBC, HCGQNT #### [address] Monocytes/100 WBC (Bld) 9.1 % Normal . [facility] Comment on above: Order Comment: Reaso n for Exam Encounter for care in first trimester of first preg Performed By: #### R MO W RFX, VZIGG, RUBELLA IGG, HIV SCREEN, HBSAG #### [facility] , #### CUU, CBC, HCGQNT #### [facility] [address] [place] [address] [place] Neutrophils (Bld) [#/Vol] 5.5 10*3/uL Normal 1.8-7.7 [facility] Comment on above: Order Comment: Reaso n for Exam Encounter for care in first trimester of first preg Performed By: #### R MO W RFX, VZIGG, RUBELLA IGG, HIV SCREEN, HBSAG #### [facility] , #### CUU, CBC, HCGQNT #### [facility] [address] [place] [address] Neutrophils/100 WBC (Bld) 65.5 % Normal . [facility] Comment on above: Order Comment: Reaso n for Exam Encounter for care in first trimester of first preg Performed By: #### R MO W RFX, VZIGG, RUBELLA IGG, HIV SCREEN, HBSAG #### [facility] , #### CUU, CBC, HCGQNT #### [facility] [address] [place] [address] [place] Nucleated RBC/100 WBC (Bld) [Ratio] 0.0 % Normal 0-0.5 [facility] Comment on above: Order Comment: Reaso n for Exam Encounter for care in first trimester of first preg Performed By: #### R MO W RFX, VZIGG, RUBELLA IGG, HIV SCREEN, HBSAG #### [facility] , #### CUU, CBC, HCGQNT #### [facility] [address] [place] [address] Platelet mean volume (Bld) [Entitic vol] 7.9 fL Normal 6.3-10.7 [facility] Comment on above: Order Comment: Reaso n for Exam Encounter for care in first trimester of first preg Performed By: #### R MO W RFX, VZIGG, RUBELLA IGG, HIV SCREEN, HBSAG #### [facility] , #### CUU, CBC, HCGQNT #### [facility] [address] Platelets (Bld) [#/Vol] 347 10*3/uL Normal 150-450 [facility] Comment on above: Order Comment: Reaso n for Exam Encounter for care in first trimester of first preg Performed By: #### R MO W RFX, VZIGG, RUBELLA IGG, HIV SCREEN, HBSAG #### [facility] , #### CUU, CBC, HCGQNT #### [address] RBC (Bld) [#/Vol] 4.45 10*6/uL Normal 3.60-5.00 [facility] Comment on above: Order Comment: Reaso n for Exam Encounter for care in first trimester of first preg Performed By: #### R MO W RFX, VZIGG, RUBELLA IGG, HIV SCREEN, HBSAG #### [facility] , #### CUU, CBC, HCGQNT #### [address] WBC (Bld) [#/Vol] 8.4 10*3/uL Normal 4.5-11.0 [facility] Comment on above: Order Comment: Reaso n for Exam Encounter for care in first trimester of first preg Performed By: #### R MO W RFX, VZIGG, RUBELLA IGG, HIV SCREEN, HBSAG #### [facility] , #### CUU, CBC, HCGQNT #### [address] HCG,Quantitativeon 2 HCG,Quantitative 992998.00 m[iU]/mL Normal [facility] Comment on above: Order Comment: Reaso n for Exam Encounter for care in first trimester of first preg Result Comment: Appr oximate Approximate hCG Gestational Age Range (mIU/ml) (weeks) 0.2-1 5-50 1-2 50-500 2-3 100-5,000 3-4 500-10,000 4-5 1,000-50,000 5-6 10,000-100,000 6-8 15,000-200,000 8-12 10,000-100,000 PERFORMED BY: [place] [address] PATHOLOGIST DOOR MANAGER JESUS JIN M.D. Performed By: #### R MO W RFX, VZIGG, RUBELLA IGG, HIV SCREEN, HBSAG #### [facility] , #### CUU, CBC, HCGQNT #### [facility] [address] [place], [place] [address] [facility] HIV 1/O/2 Antigen/Antibodyon 05-16-2022 HIV Screen 4th Generation Non-Reactive Normal Non Reactive [facility] Comment on above: Order Comment: Reaso n for Exam Encounter for care in first trimester of first preg Result Comment: HIV Negative HIV-1/HIV-2 antibodies and HIV-1 p24 antigen were NOT detected. There is no laboratory evidence of HIV infection. Performed at: [facility] [employer] [id number] Apparel Designer: Cm Sandoval PhD, Phone: [phone] Performed By: #### M G, CMP, CBC #### [facility] [address] [place], [place] [id number] [facility] Hepatitis B Surface Antigeno n 05-16-2022 HBsAg Screen Negative Normal Negative [facility] Comment on above: Order Comment: Reaso n for Exam Encounter for care in first trimester of first preg Result Comment: Perf ormed at: [place] [id number] Apparel Designer: Cm Sandoval PhD, Phone: [phone] PERFORMED BY: [place] [address] PATHOLOGIST DOOR MANAGER JESUS JIN M.D. Performed By: #### R MO W RFX, VZIGG, RUBELLA IGG, HIV SCREEN, HBSAG #### [facility] , #### CUU, CBC, HCGQNT #### [facility] [address] [place] [address] [place] RPR w/rfx to Quant TP Abson 05-16-2022 RPR, Rfx Quant RPR Non-Reactive Normal Non Reactive [facility] Comment on above: Order Comment: Reaso n for Exam Encounter for care in first trimester of first preg Result Comment: PERF ORMED BY: [place] [address] PATHOLOGIST DOOR MANAGER JESUS JIN M.D. Performed By: #### M G, CMP, CBC #### [facility] [address] [place] [address] [place] Rubella IgG Antibodyon 05-16 Rubella IgG Antibody <0.90 Low Immune >0.99 [facility] Comment on above: Order Comment: Reaso n for Exam Encounter for care in first trimester of first preg Result Comment: Non- immune <0.90 Equivocal 0.90 - 0.99 Immune >0.99 Performed at: [facility] [address] [id number] Apparel Designer: Cm Sandoval PhD, Phone: [phone] Performed By: #### R MO W RFX, VZIGG, RUBELLA IGG, HIV SCREEN, HBSAG #### [facility] , #### CUU, CBC, HCGQNT #### [facility] [address] [place] [address] [place] Type and Screenon 05-16-2022 ABO and Rh group Nom (Bld) Blood group O Rh(D) positive Normal [facility] Comment on above: Order Comment: Reaso n for Exam Encounter for care in first trimester of first preg Result Comment: PERF ORMED BY: [place] [address] PATHOLOGIST DOOR MANAGER JESUS JIN M.D. Performed By: #### R MO W RFX, VZIGG, RUBELLA IGG, HIV SCREEN, HBSAG #### [facility] , #### CUU, CBC, HCGQNT #### [facility] [address] [place] [address] Urine Cultureon 05-16-2022 Bacteria identified Cx Nom (U) Reason for Exam Encounter for care in first trimester of first preg Reason for Exam: Encounter for care in first trimester of first preg 50,000 colonies/ml mixed bacterial skin contaminants 2 Days PERFORMED BY: [place] [address] PATHOLOGIST DOOR MANAGER JESUS JIN M.D. Normal [facility] Comment on above: Performed By: #### R MO W RFX, VZIGG, RUBELLA IGG, HIV SCREEN, HBSAG #### [facility] , #### CUU, CBC, HCGQNT #### [facility] [address] [place] [address] Varicella IgG Antibodyon Varicella IgG Antibody <135 Low Immune >165 [facility] Comment on above: Order Comment: Reaso n for Exam Encounter for care in first trimester of first preg Result Comment: Nega tive <135 Equivocal 135 - 165 Positive >165 A positive result generally indicates exposure to the pathogen or administration of specific immunoglobulins, but it is not indication of active infection or stage of disease. Performed at: [facility] [address] [id number] Apparel Designer: Cm Sandoval PhD, Phone: [phone] Performed By: #### R MO W RFX, VZIGG, RUBELLA IGG, HIV SCREEN, HBSAG #### [facility] , #### CUU, CBC, HCGQNT #### [facility] [address] [place] [address] CHEMISTRYOrdered By: SYSTEM SYSTEM on 04-25-2022 Albumin [Mass/Vol] 4.4 g/dL Normal 3.3 - 5.0 gm/dL [facility] Albumin/Globulin [Mass ratio] 1.1 {ratio} Normal 1.1 - 2.2 [facility] ALP [Catalytic activity/Vol] 64 [iU]/d Normal 21 - 98 Int._Unit/L [facility] ALT No additional P-5'-P [Catalytic activity/Vol] 107 [iU]/d High 6 - 46 Int._Unit/L [facility] AST [Catalytic activity/Vol] 63 [iU]/d High 5 - 43 Int._Unit/L [facility] Bilirubin [Mass/Vol] 1.5 mg/dL High 0.0 - 1 .1 mg/dL [facility] Bilirubin.direct [Mass/Vol] 0.2 mg/dL Normal 0.1 - 0.4 mg/dL [facility] Bilirubin.indirect [Mass or moles/Vol] 1.3 mg/dL High 0.1 - 0.9 mg/dL [facility] Cholesterol [Mass/Vol] 193 mg/dL Normal 120 - 200 mg/dL [facility] Cholesterol in HDL [Mass/Vol] 64 mg/dL Invalid Interpretation Code [facility] Cholesterol in LDL [Mass/Vol] 116 mg/dL Normal <=129mg/dL [facility] Cholesterol in VLDL [Mass/Vol] 13 mg/dL Normal 7 - 40 mg/dL [facility] Globulin (S) [Mass/Vol] 3.9 g/dL Normal 1.4 - 4.0 gm/dL [facility] Protein [Mass/Vol] 8.3 g/dL High 6.0 - 7.8 gm/dL [facility] Triglyceride [Mass/Vol] 67 mg/dL Normal <=149mg/dL [facility] COAGULATIONOrdered By: Courtney Case on 04-25-2022 INR Coag (PPP) [Relative time] 1.0 {INR} Invalid Interpretation Code [facility] Auto Coag PT Coag (PPP) [Time] 12.4 s Normal 10.2 - 12.9 second(s) [facility] HEMATOLOGYOrdered By: SYSTEM SYSTEM on 04-25-2022 Basophils/100 WBC (Bld) 0.7 % Normal 0.0 - 2.0 % [facility] Basophils/Leukocytes Auto (Bld) [Pure # fraction] 0.0 E9/L Normal 0.0 - 0.2 E9/L [facility] Eosinophils/100 WBC (Bld) 3.2 % Normal 0.0 - 8.0 % [facility] Eosinophils/Leukocyte s Auto (Bld) [Pure # fraction] 0.2 E9/L Normal 0.0 - 0.5 E9/L [facility] Lymphocytes/100 WBC (Bld) 31.9 % Normal 14.0 - 50.0 % [facility] Lymphocytes/Leukocyte s Auto (Bld) [Pure # fraction] 1.9 E9/L Normal 1.0 - 4.0 E9/L [facility] Monocytes/100 WBC (Bld) 9.1 % Normal 4.0 - 14.0 % [facility] Monocytes/Leukocytes Auto (Bld) [Pure # fraction] 0.5 E9/L Normal 0.2 - 1.0 E9/L [facility] Neutrophils/100 WBC (Bld) 55.1 % Normal 36.0 - 75.0 % [facility] Neutrophils/Leukocyte s Auto (Bld) [Pure # fraction] 3.3 E9/L Normal 2.0 - 7.5 E9/L [facility] HEMATOLOGYOrdered By: Sean Ward on 04-25-2022 Erythrocyte distribution width (RBC) [Ratio] 12.9 % Normal 10.9 - 14.2 % [facility] Hematocrit (Bld) [Volume fraction] 40.1 % Normal 34.0 - 46.0 % [facility] Hemoglobin (Bld) [Mass/Vol] 13.2 g/dL Normal 12.0 - 16.0 gm/dL [facility] MCH (RBC) [Entitic mass] 27.7 pg Normal 27.0 - 34.0 pg [facility] MCHC (RBC) [Mass/Vol] 32.8 g/dL Normal 31.4 - 36.0 gm/dL [facility] MCV (RBC) [Entitic vol] 84.3 fL Normal 80.0 - 100.0 fL [facility] Platelet mean volume (Bld) [Entitic vol] 8.5 fL Normal 6.4 - 10.8 fL [facility] Platelets (Bld) [#/Vol] 299.0 E9/L Normal 150.0 - 500.0 E9/L [facility] RBC (Bld) [#/Vol] 4.8 E12/L Normal 4.3 - 5.9 E12/L [facility] WBC corrected for nucl RBC Auto (Bld) [#/Vol] 5.9 E9/L Normal 4.0 - 11.0 E9/L [facility] LMPon 02-09-2022 Fall risk assessment a) No falls within the last year [id number] man 320 Work Phone: Last menstrual period start date unsure [id number] man 320 Work Phone: Tobacco use status CPHS b) No [id number] man 320 Work Phone: 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 ANTHONY DONAHUE History of Present [id number] yo presents as a follow up for endometriosis pain worsening recently states she is not bleeding but is having cramping and new dyspareunia 2020 - lx excision of endo cramping - so bad she had to leave work end of month, beginning of month several days off and on nothing helps has tried NSAIDs GI issues: constipation issues: none pelvic floor PT: no due to insurance issues dyspareunia: yes, had prior to surgery then was doing well and now starting again engaged x 1 year working at [employer] in [employer] Review of Systems Constitutional: no fever, no chills, no recent weight gain, no recent weight loss and no fatigue. Eyes: no eye pain, no vision problems and no dryness of the eyes. ENT: no hearing loss, no nosebleeds, no sinus congestion, no mouth sores and no sore throat. Cardiovascular: no chest pain, no palpitations and no orthopnea. Respiratory: no shortness of breath, no cough and no wheezing. Gastrointestinal: no abdominal pain, no constipation, no nausea, no diarrhea, no vomiting and no melena. Genitourinary: no dysuria, no urinary incontinence, no vaginal dryness, no vaginal itching, no dyspareunia, no pelvic pain, no dysmenorrhea, no sexual problems, no change in urinary frequency, no vaginal discharge, no unexplained vaginal bleeding, no lesion/sore and no vulvar/vaginal pain. Musculoskeletal: no back pain, no joint swelling, no leg edema and no myalgias. Integumentary: no rashes, no skin lesions, no nipple discharge, no breast pain, no breast lump, no acne and no itching. Neurological: no headache, no numbness, no dizziness, no confusion and no memory loss. Psychiatric: no sleep disturbances, no anxiety and no depression. Endocrine: no hot flashes, no loss of hair, no hirsutism, no muscle weakness and no deepening of the voice. Hematologic/Lymphatic: no swollen glands, no tendency for easy bleeding and no tendency for easy bruising. All other systems have been reviewed and are negative for complaint. Active Problems Problems Anxiety (300.00) (F41.9) Endometriosis (617.9) (N80.9) Recurrent UTI (599.0) (N39.0) Surgical History Problems History of Exploratory laparoscopy Family History Mother No pertinent family history Social History Problems Always uses seat belt Never smoker Allergies Medication No Known Drug Allergies Recorded By: Sue Shen; 07/12/2020 1:58:50 PM Current Meds Medication NameInstruction FLUoxetine HCl - 20 MG Oral CapsuleTAKE 1 CAPSULE Daily Nitrofurantoin Monohyd Macro 100 MG Oral CapsuleTAKE 1 CAPSULE Other Please take one capsule after sexual intercourse to prevent UTI Nitrofurantoin Monohyd Macro 100 MG Oral CapsuleTAKE 1 CAPSULE Twice daily PRN as needed for UTI Norethindrone Acetate 5 MG Oral TabletTAKE 1 TABLET DAILY. traMADol HCl - 50 MG Oral TabletTAKE 1 TABLET Every 6 hours Vitals Vital Signs Recorded: 09Feb2022 11:41AM [id number] Eocnpyezp33 Height5 ft 2 in Eyvbob143 lb BMI Kthgbghifw96.51 kg/m2 BSA Calculated1.61 Tobacco Useb) No Fall Screeninga) No falls within the last year LMPunsure Gravida0 Para0 Pain Scale0 Physical Exam Constitutional: Alert and in no acute distress. Well developed, well nourished Abdomen: soft nontender; no abdominal mass palpated Genitourinary: external genitalia: normal Vagina: normal. Cervix: Normal. Uterus: Normal. Right Adnexa/parametria: Normal. Left Adnexa/parametria: Normal. Signatures Electronically signed by : Charlene Rodriguez DO; Feb 09 2022 12:21PM EST (Author) Normal [facility] XR KNEE LEFT (MIN 4 VIEWS)on 09-29-2021 XR KNEE LEFT (MIN 4 VIEWS) EXAM: XR KNEE LEFT (MIN 4 VIEWS) HISTORY: M25.562 Left knee pain. COMPARISON: None. FINDINGS: 4 views of the left knee were obtained. No acute fracture or dislocation. Joint spaces maintained. Articular surfaces smooth in contour. The patella is appropriately positioned. No significant joint effusion. Visualized portions of right knee are unremarkable. IMPRESSION: No acute abnormality in the left knee. Interpreted by: Tashi Lopez MD Signed by: Tashi Lopez MD 09/29/21 Final result Normal [facility] INSULATION ESTIMATOR - Office Visiton 07-0 INSULATION ESTIMATOR - Office Visit Diagnoses/Problems Assessed Anxiety (300.00) (F41.9) Orders Start: FLUoxetine HCl - 20 MG Oral Capsule; TAKE 1 CAPSULE Daily Provider Impressions 26 yo 1. 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 Eyes: no eye pain, no vision problems and no dryness of the eyes. ENT: no hearing loss, no nosebleeds, no sinus congestion, no mouth sores and no sore throat. Cardiovascular: no chest pain, no palpitations and no orthopnea. Respiratory: no shortness of breath, no cough and no wheezing. Gastrointestinal: abdominal pain, but no constipation, no nausea, no diarrhea, no vomiting and no melena. Genitourinary: dyspareunia, pelvic pain and vaginal discharge, but no dysuria, no urinary incontinence, no vaginal dryness, no vaginal itching, no dysmenorrhea, no sexual problems, no change in urinary frequency, no unexplained vaginal bleeding, no lesion/sore and no vulvar/vaginal pain. Musculoskeletal: no back pain, no joint swelling, no leg edema and no myalgias. Integumentary: no rashes, no skin lesions, no nipple discharge, no breast pain, no breast lump, no acne and no itching. Neurological: no headache, no numbness, no dizziness, no confusion and no memory loss. Psychiatric: no sleep disturbances, no anxiety and no depression. Endocrine: no hot flashes, no loss of hair, no hirsutism, no muscle weakness and no deepening of the voice. Hematologic/Lymphatic: no swollen glands, no tendency for easy bleeding and no tendency for easy bruising. All other systems have been reviewed and are negative for complaint. Active Problems Problems Endometriosis (617.9) (N80.9) Recurrent UTI (599.0) (N39.0) Surgical History Problems History of Exploratory laparoscopy Family History Mother No pertinent family history Social History Problems Always uses seat belt Never smoker Allergies Medication No Known Drug Allergies Recorded By: Sue Shen; 07/12/2020 1:58:50 PM Current Meds Medication NameInstruction Nitrofurantoin Monohyd Macro 100 MG Oral CapsuleTAKE 1 CAPSULE Other Please take one capsule after sexual intercourse to prevent UTI Nitrofurantoin Monohyd Macro 100 MG Oral CapsuleTAKE 1 CAPSULE Twice daily PRN as needed for UTI Norethindrone Acetate 5 MG Oral TabletTAKE 1 TABLET DAILY. traMADol HCl - 50 MG Oral TabletTAKE 1 TABLET Every 6 hours Vitals Vital Signs Recorded: 02Jun2021 01:19PM [id number] Yfaleygxh38 Height5 ft 2 in Ppsvir111 lb BMI Giinjrixzm01.58 kg/m2 BSA Calculated1.53 Tobacco Useb) No Fall Screeninga) No falls within the last year [id number] Pain Scale0 Signatures Electronically signed by : Charlene Rodriguez DO; Jun 03 2021 10:55AM EST (Author) Normal [facility] INSULATION ESTIMATOR - Office Visiton 03-27 INSULATION ESTIMATOR - Office Visit Diagnoses/Problems Assessed Endometriosis (617.9) (N80.9) Never smoker Orders Stop: Norethindrone Acetate 5 MG Oral Tablet Tobacco Use Screening; Status:Complete; Done: [id number] Provider Impressions 26 yo 1. 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 Eyes: no eye pain, no vision problems and no dryness of the eyes. ENT: no hearing loss, no nosebleeds and no sinus congestion. Cardiovascular: no chest pain, no palpitations and no orthopnea. Respiratory: no shortness of breath, no cough and no wheezing. Gastrointestinal: abdominal pain, but no constipation, no nausea, no diarrhea and no vomiting. Genitourinary: dysuria, dysmenorrhea and sexual problems, but no urinary incontinence, no vaginal dryness, no vaginal itching, no dyspareunia, no pelvic pain, no change in urinary frequency, no vaginal discharge, no unexplained vaginal bleeding and no lesion/sore. Musculoskeletal: no back pain, no joint swelling and no leg edema. Integumentary: no rashes, no skin lesions, no nipple discharge, no breast pain and no breast lump. Neurological: no headache, no numbness and no dizziness. Psychiatric: no sleep disturbances, no anxiety and no depression. Endocrine: no hot flashes, no loss of hair and no hirsutism. Hematologic/Lymphatic: no swollen glands, no tendency for easy bleeding and no tendency for easy bruising. All other systems have been reviewed and are negative for complaint. Active Problems Problems Endometriosis (617.9) (N80.9) Recurrent UTI (599.0) (N39.0) Surgical History Problems History of Exploratory laparoscopy Family History Mother No pertinent family history Social History Problems Always uses seat belt Never smoker Allergies Medication No Known Drug Allergies Recorded By: Sue Shen; 07/12/2020 1:58:50 PM Current Meds Medication NameInstruction Nitrofurantoin Monohyd Macro 100 MG Oral CapsuleTAKE 1 CAPSULE Other Please take one capsule after sexual intercourse to prevent UTI Nitrofurantoin Monohyd Macro 100 MG Oral CapsuleTAKE 1 CAPSULE Twice daily PRN as needed for UTI Norethindrone Acetate 5 MG Oral TabletTAKE 1 TABLET DAILY. traMADol HCl - 50 MG Oral TabletTAKE 1 TABLET Every 6 hours Signatures Electronically signed by : Charlene Rodriguez DO; Apr 20 2021 11:04AM EST (Author) Normal [employer] Tobacco Screening.on Fall risk assessment a) No falls within the last year [id number] man 320 Work Phone: Last menstrual period start date 11Apr2021 [id number] man 320 Work Phone: Tobacco Screening. b) No MG-OBG YN-Ris man 320 Work Phone: Radiologyon 04-14-2021 US Kidney - bilateral Normal [facility] [place] Work Phone: US RENAL BILATon 04-14-2021 US RENAL BILAT Patient Name: DRSIS COPE STUDY: US RENAL BILAT; 04/14/2021 1:14 pm INDICATION: Recurrent UTI. COMPARISON: None. ACCESSION NUMBER(S): [id number] ORDERING CLINICIAN: NICHOLAS CHAU TECHNIQUE: Multiple images of the kidneys were obtained . FINDINGS: RIGHT KIDNEY: The right kidney measures 8.9 cm in length. The renal cortical echogenicity and thickness are within normal limits. No hydronephrosis is present; no evidence of nephrolithiasis. LEFT KIDNEY: The left kidney measures 10.5 cm in length. The renal cortical echogenicity and thickness are within normal limits. No hydronephrosis is present; no evidence of nephrolithiasis. BLADDER: Unremarkable. IMPRESSION: Unremarkable renal ultrasound. Electronically signed by: GENEVIEVE BREEN MD Normal [facility] Office Visit (Urology)on Follow-up visit Diagnoses/Problems Assessed Recurrent UTI (599.0) (N39.0) Orders Recurrent UTI Start: Nitrofurantoin Monohyd Macro 100 MG Oral Capsule; TAKE 1 CAPSULE Other Please take one capsule after sexual intercourse to prevent UTI Rx By: Nicholas Chau; Dispense: 30 Days ; #:30 Capsule; Refill: 11;For: Recurrent UTI; ROSY = N; Verified Transmission to [place] [address] Ultrasound Kidney Bilateral; Status:Hold For - Scheduling; Requested for:[id number]; Perform:[facility] Radiology Services Imaging; Due:[id number]; Last Updated By:Isela Terrazas; 04/01/2021 9:16:17 AM;Ordered; For:Recurrent UTI; Ordered By:Nicholas Chau; Radiologist to Determine Optimal Study : Y What are the patient's signs and symptoms? : Recurrent UTI Start: Nitrofurantoin Monohyd Macro 100 MG Oral Capsule; TAKE 1 CAPSULE Twice daily PRN as needed for UTI Rx By: Nicholas Chau; Dispense: 5 Days ; #:10 Capsule; Refill: 15;For: Recurrent UTI; ROSY = N; Verified Transmission to [place] [address] Provider Impressions 26 year old female with history of endometriosis presents today via telehealth as a new patient for evaluation of recurrent UTIs. She reports getting UTIs at least once per month, noting occasional nocturia. Symptoms include burning, frequency, and back pain. She states that some UTIs are related to sexual intercourse but most are not. Patient reports she saw Dr. Booth at [facility] in [place], noting she was only treated with medications and urethral dilation for a supposed stricture. Denies gross hematuria. Patient is a non-smoker. Urine culture from [facility] on 03/04/21 was positive for E. coli, susceptible to Ciprofloxacin and Cefazolin, resistant to Bactrim. Cystoscopy results were reviewed and were negative. I recommend a renal ultrasound for further evaluation, explained. We recommend D-Mannose for preventing frequent UTIs. We recommend 2 g once daily or 1 g twice daily. We discussed that side effects are rare but some patients may have loose stools or diarrhea. We discussed with the patient that post coital antibiotic prophylaxis is an effective measure to prevent UTIs in women when sexual activity usually precedes UTI. Postcoital treatment involves taking an antibiotic within 2 hours of intercourse. Common side effects of antibiotics were discussed including rash, yeast infections, diarrhea, and antibiotic resistance. Patient understands all of the risks and wishes to proceed. Will initiate postcoital Macrobid. She will follow up in a few weeks for re-evaluation of symptoms after the renal ultrasound. All questions and concerns were addressed. Patient verbalizes understanding and has no other questions at this time. IPatricia, am scribing for and in the presence of Dr. Chau. I, Nicholas Chau, agree that all documentation by the scribe, Patricia Ruano, was under my direction and is an accurate representation of the discussion, physical exam, assessment and plan. Chief Complaint An interactive audio and video telecommunication system which permits real time communications between the patient (at the originating site) and provider (at the distant site) was utilized to provide this telehealth service. Verbal consent was requested and obtained from DRISS ANATOLIY on this date, 04/01/2021 08:40 AM , for a telehealth visit. NPV - recurrent UTI History of Present Swcyerh88 year old female with history of endometriosis presents today via telehealth as a new patient for evaluation of recurrent UTIs. She reports getting UTIs at least once per month, noting occasional nocturia. Symptoms include burning, frequency, and back pain. She states that some UTIs are related to sexual intercourse but most are not. Patient reports she saw Dr. Booth at [facility] in [place], noting she was only treated with medications and urethral dilation for a supposed stricture. Denies gross hematuria. Patient is a non-smoker. Review of Systems Please refer to intake forms, which have been scanned into the chart. Active Problems Problems Endometriosis (617.9) (N80.9) Surgical History Problems History of Exploratory laparoscopy Social History Problems Always uses seat belt Never smoker Allergies Medication No Known Drug Allergies Recorded By: Sue Shen; 07/12/2020 1:58:50 PM Current Meds Medication NameInstruction Norethindrone Acetate 5 MG Oral TabletTAKE 1 TABLET DAILY. traMADol HCl - 50 MG Oral TabletTAKE 1 TABLET Every 6 hours Physical Exam Constitutional: No acute distress, well appearing and well nourished. Pulmonary: Respiratory effort: No retractions, no use of accessory muscles, normal diaphragmatic movement. Skin: No rash, no lesions, no ulcers, no pretibial edema, no jaundice. Neurological: Alert and oriented to person, place, and time. Sensation: Grossly intact, no focal deficit. Psychiatric: No appreciable depression, no anxiety, no agitation. Normal mood and affect. Signature (more content not included)... Normal [employer] [place] GASTRIC EMPTYING SOLIDon 11-05-2020 NM GASTRIC EMPTYING SOLID * * *Final Report* * * DATE OF EXAM: Nov 05 2020 12:26PM [facility] 0017 - [place] GASTRIC EMPTYING SOLID / PROCEDURE REASON: Nausea * * * * Physician Interpretation * * * * SOLID MEAL GASTRIC EMPTYING STUDY 11/05/2020 1:09 PM: CLINICAL HISTORY: History of nausea. To assess for abnormal gastric emptying of a solid meal. TECHNIQUE: 1.1 mCi Tc-99m sulfur colloid was given orally in a meal consisting of 8 oz Ensure, consumed over 5 to 10 minutes. 1-minute posterior and anterior spot images of the stomach region at times 0, 1, 2, and 4 hours were obtained. Geometric mean was used to plot a time-activity curve. RESULT: Solid study demonstrates 71% gastric retention at 1 hour (normal range, 37-90%), 51% retention at 2 hours (normal range, 30-60%), and 17% retention at 4 hours (normal range, 0-10%). There is no evidence of accelerated emptying of gastric contents, with 71% retention at 1 hour (rapid emptying is <30% retention at 1 hour). IMPRESSION: REDUCED RATE OF GASTRIC EMPTYING OF A SOLID MEAL. 11-20% GASTRIC RETENTION AT 4 HOURS IS CONSISTENT WITH MILD GASTROPARESIS. Ammunition Storage Superintendent: DAVID Transcribe Date/Time: Nov 05 2020 1:09P Dictated by : BRUNO PEREA MD This examination was interpreted and the report reviewed and electronically signed by: BRUNO PEREA MD on Nov 05 2020 1:24PM EST [id number] Normal [facility] ANES POSTPROC EVALon 020 ANES POSTPROC EVAL HNO ID: [id number] Author: Austin Story Service: ? Author Type: Anesthesiologist Type: Anesthesia Postprocedure Evaluation Filed: 10/25/2020 2:52 PM Note Text: POST ANESTHESIA EVALUATION NOTE : 1995 Procedure Summary Date: 10/25/20 Room / Location: AV ENDO 01 / ENDO Anesthesia Start: 1324 Anesthesia Stop: 1352 Procedures: COLONOSCOPY (N/A Colon Sigmoid) EGD (N/A Throat) Diagnosis: Gastroesophageal reflux disease without esophagitis Surgeons: David Cruz Responsible Provider: Austin Story Anesthesia Type: MAC ASA Status: 1 Anesthesia Type: MAC Last vitals Vitals Value Taken Time BP 116/76 10/25/20 1420 Temp 36.1 ?C (96.9 ?F) 10/25/20 1354 HR SpO2 77 10/25/20 1420 Resp 16 10/25/20 1420 SpO2 99 % 10/25/20 1420 Post Anesthesia Patient Status Patient Evaluation: PACU. PACU/ICU Patient Condition: stable. Anticipated Disposition: phase 2 then home. Neurological Status: aware and responsive. Pulmonary Status: breathing comfortably on room air Airway Control: returned to baseline unsupported. Cardiovascular Status: stable. Pain Management: clinically adequate - multimodal analgesia pain management approach Postoperative Hydration: acceptable. Intraoperative Events: no significant anesthesia events Post Operative Nausea/Vomiting Status: Anesthetic Observations: no significant anesthetic observations Recommendation: continue current plan of care. SIGNATURE: Austin Story MD PATIENT NAME: Driss Cope DATE: October 25, 2020 TIME: 2:52 PM CSN: [id number] [facility] ANES PRE-OPon 10-25-2020 ANES PRE-OP HNO ID: [id number] Author: Austin Story Service: ? Author Type: Anesthesiologist Type: Anesthesia Preprocedure Evaluation Filed: 10/25/2020 1:09 PM Note Text: ANESTHESIOLOGY DAY OF SURGERY NOTE : 1995 Procedure(s) (LRB): COLONOSCOPY (N/A) EGD (N/A) Surgeon(s): David Cruz Estimated body mass index is 21.95 kg/m? as calculated from the following: Height as of 10/08/20: 157.5 cm (5' 2 ). Weight as of 10/08/20: 54.4 kg (120 lb). Most recent hematocrit and potassium results: No results found for this basename: HCT,HEMATOCRIT,K,POTASS IUM Relevant Problems CARDIO (+) HTN (hypertension) (+) Migraine I - PHYSICAL EVALUATION AIRWAY Patient intubated: No. Mallampati: II. TM distance: >3 FB. Neck ROM: full ROM without neurological symptoms. Mouth opening: adequate. Short neck: no. Thick neck: no DENTAL Normal dental observations. Dental findings: teeth intact. Additional exam findings: no II - ANESTHESIA PLAN ASA Score: 1 Anesthetic Plan: MAC NPO Status: adequate Monitoring plan: Standard ASA. Postoperative analgesic plan: parenteral or oral opioids and multimodal analgesia. Anesthetic Risks, Benefits, Alternatives, Personnel Discussed. Consent obtained from: patient. Patient / Surrogate agrees to blood products: blood products not planned DNR status not reviewed with patient and/or family prior to surgery. Significant changes in the patient condition since the History and Physical, not otherwise documented in primary service progress note: no. Potential Anesthesia issues that may suggest increased risk of complications or contraindication to planned procedure: none. No vitals data found for the desired time range. Facility-Administered Medications as of 10/25/2020 Medication Dose Route Frequency - NaCl 0.9% iv infusion 30 mL/hr INTRAVENOUS CONTINUOUS Outpatient Medications as of 10/25/2020 Medication Sig - polyethylene glycol 3350 (MIRALAX, GLYCOLAX) 17 gram/dose powder TAKE 17GM (DISSOLVED IN WATER) BY MOUTH TWICE A DAY - levonorgestrel-ethinyl estradiol (JOLESSA) 0.15 mg-30 mcg per tab, 3 month pack Take 1 tablet by mouth once daily. - NORETHINDRONE-ETHINYL ESTRAD (ALYACEN , 28, ORAL) Take by mouth once daily. I have interviewed and examined the patient. I have reviewed the medical record and/or the pre-anesthesia evaluation, pertinent labs, and test results. This contains updated information obtained within 48 hours of Surgery/Procedure. SIGNATURE: Austin Story MD PATIENT NAME: Driss Cope DATE: October 25, 2020 TIME: 1:08 PM CSN: [id number] Normal [facility] SURGICAL PATHOLOGYon 020 SURGICAL PATHOLOGY Specimen originated from [facility] Specimen #: [id number] Submitting Physician: DAVID CRUZ MD FINAL DIAGNOSIS 1. Small bowel, biopsy (A) - Small bowel mucosa with no pathologic diagnostic abnormality; negative for celiac disease, granulomas and dysplasia. 2. Stomach, biopsy (B) - Gastric oxyntic-type mucosa with no pathologic diagnostic abnormality; see comment. /[facility] 10/26/2020 COMMENT 2. No microorganisms morphologically compatible with H.pylori are identified on routine FARHAN-stained sections. Radha Golden M.D. (Electronic Signature) SPECIMEN SUBMITTED A: SMALL BOWEL, BIOPSY B: GASTRIC, BIOPSY CLINICAL DATA GASTROESOPHAGEAL REFLUX DISEASE WITHOUT ESOPHAGITIS A: R/O CELIAC B: R/O H.PYLORI GROSS DESCRIPTION A. Received in alcoholic formalin are multiple pieces of russell, soft tissue aggregating to 1.2 x 0.3 x 0.2 cm. Totally submitted in one cassette. B. Received in alcoholic formalin are multiple pieces of russell, soft tissue aggregating to 1.4 x 0.2 x 0.2 cm. Totally submitted in one cassette. Gross examination performed at [facility], [address] [place] [address] EJ 10/25/2020 7:59:40 PM Date of Report: 10/26/2020 Date of Procedure: 10/25/2020 Date of Receipt: 10/25/2020 Submitted by: DAVID CRUZ MD Location: [facility] Diagnostic interpretation performed at [facility], [address] [place] [address]. CLIA Number: [id number] Normal [facility] Reference Lab Comment on above: Performed By: #### S #### See report for performing lab information. SURGICAL PATHOLOGY Specimen originated from [facility] Specimen #: [id number] Submitting Physician: DAVID CRUZ MD FINAL DIAGNOSIS 1. Small bowel, biopsy (A) - Small bowel mucosa with no pathologic diagnostic abnormality; negative for celiac disease, granulomas and dysplasia. 2. Stomach, biopsy (B) - Gastric oxyntic-type mucosa with no pathologic diagnostic abnormality; see comment. /[facility] 10/26/2020 COMMENT 2. No microorganisms morphologically compatible with H.pylori are identified on routine H&E-stained sections. Radha Golden M.D. (Electronic Signature) SPECIMEN SUBMITTED A: SMALL BOWEL, BIOPSY B: GASTRIC, BIOPSY CLINICAL DATA GASTROESOPHAGEAL REFLUX DISEASE WITHOUT ESOPHAGITIS A: R/O CELIAC B: R/O H.PYLORI GROSS DESCRIPTION A. Received in alcoholic formalin are multiple pieces of russell, soft tissue aggregating to 1.2 x 0.3 x 0.2 cm. Totally submitted in one cassette. B. Received in alcoholic formalin are multiple pieces of russell, soft tissue aggregating to 1.4 x 0.2 x 0.2 cm. Totally submitted in one cassette. Gross examination performed at [facility], [address] [place] [address] EJL 10/25/2020 7:59:40 PM Date of Report: 10/26/2020 Date of Procedure: 10/25/2020 Date of Receipt: 10/25/2020 Submitted by: DAVID CRUZ MD Location: [facility] Diagnostic interpretation performed at [facility], [address] [place] [address]. CLIA Number: [id number] [facility] ABO/RH GROUP TESTon 09-01-20 ABO TYPE O Normal [facility] Comment on above: Performed By: #### V ERAB #### [facility] [address] [place] [address] RH TYPE Positive Normal [facility] Comment on above: Performed By: #### V ERAB #### [facility] [address] [place] [address] [facility] Surgical Pathology Dep artmenton 09-01-2020 [facility] Surgical Pathology Department Name DRISS COPE Pathologist: ASHLEY HURTADO MD Date of Procedure: 09/01/2020 Date Received: 09/01/2020 Date Reported 09/03/2020 Submitting Physician: CHARLENE RODRIGUEZ D.O. Location: [facility] External # FINAL DIAGNOSIS A. LEFT PELVIC SIDE WALL PERITONEUM, BIOPSY: - BENIGN FIBROADIPOSE TISSUE WITH FEATURES CONSISTENT WITH ENDOMETRIOSIS. B. LEFT URETERAL SACRAL LIGAMENT NODULE, BIOPSY: - BENIGN FIBROADIPOSE TISSUE. C. RIGHT PELVIC SIDE WALL NODULE, BIOPSY: - BENIGN FIBROADIPOSE TISSUE WITH FEATURES CONSISTENT WITH ENDOMETRIOSIS. D. RIGHT PELVIC SIDE WALL PERITONEUM, BIOPSY: - BENIGN FIBROADIPOSE TISSUE WITH FEATURES CONSISTENT WITH ENDOMETRIOSIS. E. RIGHT URETERAL SACRAL LIGAMENT, BIOPSY: - BENIGN FIBROADIPOSE TISSUE WITH FEATURES CONSISTENT WITH ENDOMETRIOSIS. F. RECTAL VAGINAL, BIOPSY: - BENIGN FIBROADIPOSE TISSUE WITH FEATURES CONSISTENT WITH ENDOMETRIOSIS. G. ANTERIOR PELVIC PERITONEUM, BIOPSY: - BENIGN FIBROADIPOSE TISSUE WITH FEATURES CONSISTENT WITH ENDOMETRIOSIS. Electronically Signed Out By ASHLEY HURTADO MD/DOMINIK By the signature on this report, the individual or group listed as making the Final Interpretation/Diagnosi s certifies that they have reviewed this case. Clinical History: Acute pain in female pelvis, R/O endometriosis Specimens Submitted As: A: LEFT PELVIC SIDE WALL PERITONEUM B: LEFT URETERAL SACRAL LIGAMENT NODULE C: RIGHT PELVIC SIDE WALL NODULE D: RIGHT PELVIC SIDE WALL PERITONEUM E: RIGHT URETERAL SACRAL LIGAMENT F: RECTAL VAGINAL G: ANTERIOR PELVIC PERITONEUM Gross Description: A: Received in formalin, labeled with the patient's name, number and A. Left pelvic sidewall peritoneum are multiple pink-russell, irregular fragments of tissue measuring 3.7 x 3.5 x 0.8 cm in aggregate. The larger fragments are trisected. The smaller fragments are bisected. The specimen is filtered and entirely submitted in 3 cassettes. SB B: Received in formalin, labeled with the patient's name, number and B. Left uterosacral ligament nodule is one pink-russell, irregular fragmented tissue measuring 1.1 x 0.7 x 0.4 cm. The specimen is trisected and entirely submitted in one cassette. SB C: Received in formalin, labeled with the patient's name, number and C. Right pelvic sidewall nodule are 3 pink-russell, irregular fragments of tissue measuring 0.3 x 0.3 x 0.1 cm, 1.2 x 0.7 x 0.2 cm and 1.4 x 1.1 x 0.5 cm. The largest fragment is serially sectioned. The specimen is filtered and entirely submitted in one cassette. SB D: Received in formalin, labeled with the patient's name, number and D. Right pelvic sidewall peritoneum are 2 [id number], irregular fragments of tissue measuring 1.3 x 0.8 x 0.2 cm and 2.4 x 1.1 x 0.1 cm. The larger fragment is trisected. The smaller fragment is bisected. The specimen is filtered and entirely submitted in one cassette. SB E: Received in formalin, labeled with the patient's name, number and E. Right uterosacral ligament are 3 pink-russell, irregular fragments of tissue measuring 0.7 x 0.5 x 0.4 cm, 1.2 x 0.7 x 0.1 cm and 1.3 x 0.8 x 0.5 cm. The 2 largest fragments are bisected. The specimen is filtered and entirely submitted in one cassette. SB F: Received in formalin, labeled with the patient's name, number and F. Rectal vaginal are 3 pink-russell, irregular fragments of tissue measuring 0.4 x 0.3 x 0.2 cm, 0.6 x 0.3 x 0.2 cm and 0.7 x 0.3 x 0.2 cm. The specimen is filtered and submitted in toto in one cassette. SB G: Received in formalin, labeled with the patient's name, number and G. Anterior pelvic peritoneum are multiple pink-russell, irregular fragments of tissue measuring 1.7 x 1.5 x 0.5 cm in aggregate. The specimen is filtered and submitted in toto in one cassette. SB amisha/09/02/2020 [facility] Department of Pathology [address] [place] [address] Comment on above: Performed By: #### A #### [facility] [address] [facility] [address] History and Physical - Surge ry > 30 dayson 09-01-2020 History and Physical - Surgery > 30 days History of Present Illness: /Lactating: Are You no Are You Currently Breastfeedingno History Present Illness: Reason for surgery: endometriosis/pelvic pain HPI: 25-year-old G0 presenting for laparoscopic endometriosis excision due to pelvic pain. Patient had an ablation of endometriosis on the uterosacral ligament in 02/2019 which relieved her pain for approximately one year; however, over the past few months her pain has been worsening. She has regular menses with pain one week prior to menses and cramping with her menses. Admits to dyspareunia. Continuous cOPCs have not relieved her pain. Labs: 08/30: Hgb: 12.6, platelets: 333, T&S: O+, COVID-19: negative OB Hx: None. Business Support Specialist Hx: As above. PMHx: endometriosis Surg Hx: diagnostic laparoscopy, appendectomy (2015) Meds: Meloxicam, Bibb-Linyah, Norethindrone acetate Social Hx: No tobacco, no alcohol, no illicit drugs Family Hx: CRC (father in 30s, grandparent), Breast CA (grandmother) Home Medication Review: Home Medications Reviewed: yes Impression/Procedure: Impression and Planned Procedure: laparoscopic endometriosis excision ERAS (Enhanced Recovery After Surgery): ERAS Patient: no Physical Exam by System: Constitutional: NAD Eyes: Nonicteric ENMT: MMM Head/Neck: NCAT Respiratory/Thorax: Breathing well on RA Cardiovascular: Hemodynamically stable Musculoskeletal: ROM grossly normal Extremities: No LE edema Neurological: Grossly intact Psychological: Appropriate affect Skin: WWP Consent: COVID-19 Consent: COVID-19 Risk ConsentSurgeon has reviewed morales risks related to the risk of rudi COVID-19 and if they contract COVID-19 what the risks are. Signatures/Attestation: Note Completion: I am a: Resident/Fellow Attending AttestationI saw and evaluated the patient. I personally obtained the morales and critical portions of the history and physical exam or was physically present for morales and critical portions performed by the resident/fellow. I reviewed the resident/fellows documentation and discussed the patient with the resident/fellow. I agree with the resident/fellows medical decision making as documented in the note. I personally evaluated the patient [id number] Attending Provider Inpatient Certification StatementObservation patient/other outpatient visits Electronic Signatures: Charlene Rodriguez () (Signed 01-Sep-2020 10:04) Authored: Note Completion Co-Signer: History of Present Illness, Home Medication Review, Impression/Procedure, ERAS, Physical Exam, Consent, Note Completion Chelsie Leal (Resident)) (Signed 31-Aug-2020 15:44) Authored: History of Present Illness, Home Medication Review, Impression/Procedure, ERAS, Physical Exam, Consent, Note Completion Last Updated: 01-Sep-2020 10:04 by Charlene Rodriguez () Normal [facility] Homegoing Instructionson Homegoing Instructions Additional Instructions: Handouts Given: Topic 1Anesthesia Homegoing Instructions Topic 2Surgical Site Infection Handout Topic 3New Medication Education Topic 4Suggamedex handout Electronic Signatures: Aminata Gomez) (Signed 01-Sep-2020 16:07) Authored: Additional Instructions Last Updated: 01-Sep-2020 16:07 by Aminata Gomez (DIALLO) Normal [facility] Patient Profile - Preop v2on 09-01-2020 Patient Profile - Preop v2 Profile: Initial Info: How to be Addressedalexis Spoken Language PreferredEnglish Are you currently using the Personal Electronic Health Record or Connectyx TechnologiesTransfer To Stated Reason for Admissionseeing if my endometriosis is back Primary Contact Name and Numberlogan [phone] Patient Belongingsclothing locker glasses with bf Medications Brought to Hospitalno General Health: Weight in kg55.6 kilogram(s) Weight in rtl972.5 pound(s) Weight Methodactual (measured) Scale Typestanding Height in feet5 feet Height in inches2 inch(es) Height in cm157.4 centimeter(s) Height Methodstated BMI (kg/m2)22.442 square meter Patient or Family Member Reaction to Anesthesiano previous reaction Blood Avoidance/Restrictionsn one Previous Transfusion Reactionno Health Mgmt: Symptoms/Conditions Managed at Homeendometriosis Are You no Are You Currently Breastfeedingno (1) Barriers to Managing Healthnone Relationship/Environ: Living Arrangementshouse Lives Withparent(s) Resource/Environmental Concernsnone Anticipated Transition Toloop Services Anticipated at Transitionnone Substance: Current or Former Substance Use never: Cigarette/Tobacco, e-Cigarette/Vaping, Alcohol, Street Drugs Risk Screens: COVID-19 Screening Completedno exposure or symptoms Advance Directive/DNRno Advance Directive Information Givenpatient/family declined During the past month, have you often been bothered by feeling down, depressed or hopelessno During the past month, have you often had little interest or pleasure in doing thingsno Have you had any thoughts of harming yourselfno Have you had any thoughts of harming anyone elseno Are you or have you been threatened or abused physically,emotionally or sexually abused by anyoneno Do you feel UNSAFE going back to the place you are livingno Patient is Able to be Assessed for Learningyes Factors Influencing Readiness to Learnanxiety Factors that Impact Ability to Learnnone Devices/Methods Used to Communicateglasses Learning Preferencesverbal instruction Cultural Considerationsnone Developmental Considerationsnone Cheondoism Considerationsnone Other learner availableno Falls RiskPatient location auto qualifies him/her for HIGH RISK. Are there any cultural, spiritual, restorationism practices/values/needs that are important for us to knowno Pain Scalenumerical 0-10 Pain Scale Educationteaching provided Current Pain Level0 = None Acceptable Pain Level5 = Moderate Chronic Painno Information Review: Allergies, Home Meds and Significant Events have been Reviewed and Verified with Patient/Familyyes Allergy, Intolerance, Adverse Event: Allergies: No Known Allergies: Active Electronic Signatures: Sierra Kraft (DIALLO) (Signed 01-Sep-2020 12:39) Authored: Initial Info, General Health, Health Mgmt, Relationship/Environ, Substance, Risk Screens, Additional Information Last Updated: 01-Sep-2020 12:39 by Sierra Kraft (DIALLO) References: 1. Data Referenced From History and Physical - Surgery > 30 days 01-Sep-2020 03:42 Normal [facility] Preop Checkliston 09-01-2020 Preop Checklist Preop Checklist: Preop Checklist: Arrival [id number] Arrival Time12:30 Procedure Typelaparoscopic endometriosis excision NPO [id number] 00:00 ID Band Onyes Allergy Bandno known allergies Consent Signedyes H&P Completepending Anesthesia Assessment Completedpending EKG Performedsee results tab Chest X-Ray Performedsee results tab HCG Urine TestComplete Chlorhexadine Bath Givennot applicable Nasal Antiseptic Appliednot applicable Hair Washedyes Soap and water bath with hair shampoo the night before surgeryyes Hat placed on infant prior to transportnot applicable SCD's Appliedsent to OR TANK Hose Appliedyes Denturesnot applicable Prostheticsnot applicable Hearing Aidsnot applicable Valuables Securedplaced in locker Glasses / Contactssent with family Bowel Prepno Cardiovascular Assessment: Extremitieswarm Respiratory Assessment: Respirationsunlabored Air Exchangeequal Neurological Assessment: Level of Consciousnessalert, oriented Mobilitymoves all extremities Able to Express Selfyes Age Appropriateyes Emotional Statuscalm Preop Education: Surgical Site Infection Preventionyes Pain Scales and Managementyes Language / Communication: Language / CommunicationEnglish Electronic Signatures: Sierra Kraft (RN) (Signed 01-Sep-2020 12:35) Authored: Preop Checklist Last Updated: 01-Sep-2020 12:35 by Sierra Kraft (RN) Normal [facility] ANTIBODY IDENT.on 08-31-2020 ANTIBODY IDENT. SEE BELOW Normal [facility] Comment on above: Result Comment: NO C LINICALLY SIGNIFICANT ANTIBODIES IDENTIFIED. Performed By: #### A BID #### [facility] [address] [place] [address] CBCon 08-30-2020 Erythrocyte distribution width (RBC) [Ratio] 12.1 % Normal 11.5 - 14.5 [facility] Comment on above: Performed By: #### C BC #### [address] [id number] Hematocrit (Bld) [Volume fraction] 39.6 % Normal 36.0 - 46.0 [facility] Comment on above: Performed By: #### C BC #### [address] [id number] Hemoglobin (Bld) [Mass/Vol] 12.6 g/dL Normal 12.0 - 16.0 [facility] Comment on above: Performed By: #### C BC #### [address] [id number] MCHC (RBC) [Mass/Vol] 31.8 g/dL Low 32.0 - 36.0 [facility] Comment on above: Performed By: #### C BC #### [address] [id number] MCV (RBC) [Entitic vol] 90 fL Normal 80 - 100 [facility] Comment on above: Performed By: #### C BC #### [address] [id number] Platelets (Bld) [#/Vol] 333 10*3/uL Normal 150 - 450 [facility] Comment on above: Performed By: #### C BC #### [address] [id number] RBC 4.42 x10E12/L Normal 4.00 - 5.20 [facility] Comment on above: Performed By: #### C BC #### [address] [id number] WBC (Bld) [#/Vol] 5.6 10*3/uL Normal 4.4 - 11.3 [facility] [place] Comment on above: Performed By: #### C BC #### [address] [id number] CORONAVIRUS 2019, SCREEN ASY MPTOMATICon 08-30-2020 SARS-CoV-2 (COVID-19) RNA TENA+probe Ql (Unsp spec) Not detected Normal Not Detected [facility] Comment on above: Result Comment: This assay is designed to detect the N, ORF1ab and/or S genes of SARS-CoV-2 via nucleic acid amplification. A Negative (NOT DETECTED) result does not preclude 2019-nCoV infection since the adequacy of sample collection and/or low viral burden may result in presence of viral nucleic acids below the clinical sensitivity of this test method. Negative (NOT DETECTED) result should not be used as the sole basis for treatment or other patient management decisions. Rather negative results should be combined with clinical observations, patient history, and epidemiological information to make patient management decisions. Fact sheet for providers: https://www.fda.gov/media/498615/download Fact sheet for patients: https://www.fda.gov/media/422881/download This test has received FDA Emergency Use Authorization (EUA) and has been verified by [facility] ([facility]). This test is only authorized for the duration of time that circumstances exist to justify the authorization of the emergency use of in vitro diagnostic tests for the detection of SARS-CoV-2 virus and/or diagnosis of COVID-19 infection under section 564(b)(1) of the Act, 21 U.S.C. 360bbb-3(b)(1), unless the authorization is terminated or revoked sooner. [facility] is certified under CLIA-88 as qualified to perform high complexity testing. Testing is performed in the [facility] laboratories located at [address] [place] [address]. Performed By: #### C OVSC #### [place] [address] Lab Specimen Source Nasal, Nasopharyngeal Normal [facility] Comment on above: Performed By: #### C OVSC #### [place] [address] TYPE + SCREENon 08-30-2020 ABO TYPE O Normal [facility] Comment on above: Performed By: #### T +S #### [facility] [address] [place] [address] RH TYPE Positive Normal [facility] Comment on above: Performed By: #### T +S #### [facility] [address] [place] [address] ABO TYPE Canceled Normal [facility] Comment on above: Order Comment: TEST TYPE + SCREEN WAS CANCELLED, 08/30/2020 13:37 JOP. Performed By: #### T +S #### [place] [address] RH TYPE Canceled Normal [facility] Comment on above: Order Comment: TEST TYPE + SCREEN WAS CANCELLED, 08/30/2020 13:37 JOP. Performed By: #### T +S #### [place] [address] HOSPon 07-29-2020 HOSP Patient:Flavio Cope MRN: Height:5' 2 (1.575 m) Weight:120 lb (54.432 kg) Outpatient Medications as of 10/25/20: polyethylene glycol 3350 (MIRALAX, GLYCOLAX) 17 gram/dose powder polyethylene glycol 3350 (MIRALAX, GLYCOLAX) 17 gram/dose powder Gatorade Sports Drink Bisacodyl (DULCOLAX) 5 mg tab levonorgestrel-ethinyl estradiol (JOLESSA) 0.15 mg-30 mcg per tab, 3 month pack NORETHINDRONE-ETHINYL ESTRAD (ALYACEN , 28, ORAL) Admission/Clinic Administered Medications as of 10/25/20: NaCl 0.9% iv infusion Problem List: Vasovagal attack [R55] Dysmenorrhea [N94.6] Anorexia [R63.0] Anxiety [F41.9] Constipation [K59.00] Migraine [G43.909] HTN (hypertension) [I10] Allergies: No Known Allergies Date Verified:10/25/20 Lab Values No results within the last 30 days for the following basenames: K,HCT Progress Notes ([facility] REJ AV4): Jaquelin Wesley Ma 10/19/2020 2:35 PM Signed COVID-19 testing is required to be completed 72 hours prior to your procedure. You be contacted to schedule your testing . If your testing is not completed within the appropriate time frame your procedure will be rescheduled. The surgical center will call you the afternoon prior to your procedure with your arrival time. The time you see om your MyChart does not reflect your arrival time and is inaccurate. You will need to have a responsible adult to come and remain with you until discharge. If you have joint or valve Replacement, are diabetic or are taking taking blood thinners; please contact your doctor who ordered these medications or your surgeon and ask if you need to take any antibiotics or need to change your dosages. Take all other medications as instructed by your doctor. On the day of the procedure take your medications with a sip of water. ? ? ?Miralax Prep ? ? What you need to obtain now: ? 1. Purchase one (1) Miralax 238 gram bottle (over the counter) 2. Purchase four (2) Ducolax laxative tablets (over the counter) 3. Purchase one (1) 64 oz Gatorade, Propel, or Powerade (No red , blue or purple) 4. 1 10 oz. Bottle of Magnesium Citrate (Lemon/[place]) ? A test for COVID 19 test MUST be completed within 3 days prior to your scheduled procedure or you run the risk of your procedure not being done. Everyone's safety is our highest priority. ? Medications Some of the medicines you take may need to be stopped or adjusted before your colonoscopy. You MUST call the doctor who ordered any of the following medicines at least 2 weeks before your colonoscopy. Blood Thinners -- such as Coumadin? (warfarin), Plavix ? (clopidogrel), Ticlid ? (ticlopidine hydorchloride), Agrylin ? (anagrelide), Xarelto (Rivaroxaban), Pradaxa (Dabigatran), and Effient (Prasugrel). ? Insulin or diabetes pills. Please call the doctor that monitors your glucose levels. Your insulin and/or diabetes pills dosages may need to be adjusted due to diet restrictions required with this bowel preparation. (Please bring your diabetes medications with you on the day of your procedure.) ? If you take seizure, blood pressure,or thyroid medications-?You should take them?on the day of your colonoscopy with a sip of water. ? Five (5) Days Before Your Colonoscopy ? Do NOT take medications that stop diarrhea-- such as Imodium?, Kaopectate?, or Pepto Bismol?. ? Do NOT take fiber supplements--such as Metamucil?, Citrucel?, or Perdiem?. ? Do NOT take products that contain iron--such as multi-vitamins--(the label lists what is in the products). ? Do not take vitamin E, Fish oil, Flax seed oil ? Three (3) Days Before Your Colonoscopy ? Do not eat high-fiber foods--such as popcorn, beans, seeds (flax, sunflower, quinoa), multigrain bread, nuts, salad/vegetables, or fresh and dried fruit. ? Some low fiber foods that are acceptable to have 2 and 3 days before your colonoscopy include: ?chicken, turkey, fish; eggs; smooth peanut butter; bread/rolls/biscuits/cr oissants/zafar toast without seeds (not multigrain); pretzels; waffles, [place] toast and pancakes; white rice, noodles, pasta, macaroni, peeled cooked potatoes; Special K, Rice Krispies or [place] Flakes cereals; ripe bananas; melons (except watermelon because of the seeds); milk, yogurt, ice cream, cottage cheese; plain cakes and cookies. ? One (1) Day Before Your Colonoscopy ? You will receive a call the afternoon before your procedure to provide your exact arrival time, or on a Sunday afternoon if your procedure is on a Sunday. ? ? Only drink clear liquids the ENTIRE DAY before your colonoscopy. Do not eat any solid foods. Drink at least 8 ounces of clear liquids every hour after waking up. The clear liquids you can drink include: water, apple or white grape juice; broth; coffee or tea (without milk or creamer); clear carbonated beverages such as chi aislinn or lemon-[place] soda; Gatorade? or other sports drinks (not red or purple); Cheko-Aid? or other flavored drinks (not red or purple); plain jello or other gelatins (not red or purple); popsicles (not red or purple) Do not drink alcohol on the day before or the day of the procedure. ? IF PROCEDURE IS BEFORE 9:00A.M. : ? ?1-In the morning mix a pitcher- 64 oz sport drink and the entire bottle of Miralax powder and refrigerate. ? 2-No solid food the entire day. Drink one glass of clear liquid every hour until bedtime (or until midnight whichever comes first). Examples of clear liquids include: water, lemonade, Sprite, apple juice, coffee or tea with NO creamer, jello or popsicles (no red, blue or purple)..... ? 3-At 3 pm take (2) Ducolax tablets ? 4-At 5 pm drink the Miralax prep sports drink that you should have mixed up this morning. Drink one large glass (8 oz) ?Every 15 minutes until gone. ? 5-9:00 pm Drink bottle of Magnesium Citrate. ? 6-Follow a clear liquid diet until bedtime or midnight (whichever comes first). ? NO solid food the day of your procedure until the procedure is completed. You may have up to a cup (8 oz) of clear liquids up until 4 hours prior to your procedure. ? Follow a clear liquid diet until bedtime or midnight (whichever comes first). ? IF YOUR PROCEDURE IS AFTER 9:00 A.M. ? 1-In the morning mix a pitcher- 64 oz sport drink and the entire bottle of Mirilax powder and refrigerate ? 2-No solid food the entire day. Drink one glass of clear liquid every hour until bedtime (or until midnight whichever comes first). Examples of clear liquids include: water, lemonade, Sprite, apple juice, coffee or tea with NO creamer, jello or popsicles (no red, blue or purple)..... ? 3-At 3 pm take (2) Ducolax tablets ? 4-At 5 pm drink the Miralax prep sports drink that you should have mixed up this morning. Drink one large glass (8 oz) ?Every 15 minutes until gone. ? 5-Follow a clear liquid diet until bedtime or midnight (whichever comes first). ? ? NO solid food the day of your procedure until the procedure is completed. You may have up to a cup (8 oz) of clear liquids up until 4 hours prior to your procedure. DAY OF PROCEDURE: 1. 6:00 a.m. - Drink bottle of Magneseum Citrate. ? Please make sure you have a responsible adult commercial driver to take you home after procedure. Due to having sedation, you may not drive the rest of the day. ? If you need to reschedule, please call [phone] ?Date/Provider Dr Cruz Procedure:colonoscpy Facility:[facility] Prep ordered( if aware):miralax Knowledge of prep instructions:posted to shoply Diabetic:no Blood Thinners:no Pacemaker with defibrillator:no left message for patient to return call. Nurse triage please give below message. PLEASE READ PATIENT INSTRUCTIONS BELOW. THANK YOU. Normal [facility] PROGRESSon 07-29-2020 PROGRESS HNO ID: [id number] Author: Fito Stapleton (Rt) Service: Radiology Author Type: Stave Inspector Type: Progress Notes Filed: 07/29/2020 11:06 AM Note Text: Radiology Service Progress Note PATIENT NAME: Driss Cope DATE OF SERVICE: July 29, 2020 TIME: 11:01 AM PATIENT IDENTITY VERIFICATION COMPLETED USING TWO (2) IDENTIFIERS: Name and Date of confirmed by patient verbally and Name and Date of confirmed by identification band. FALL SCREENING: Has the patient had 2 falls in the last year or 1 fall with injury or currently using an Ambulatory Assistive Device (Walker, Cane, Wheelchair, Crutches, etc.)? No PATIENT GENDER DATA: Female. status: : No status: NO. PATIENT RELEVANT IMPLANT DATA REVIEWED: Yes RADIOLOGY DEPARTMENT: General X-ray: Exam(s) Completed: Abdomen X-Ray Abdomen PERIPHERAL IV DATA: Not applicable SIGNED BY: RT Daya July 29, 2020 11:01 AM [facility] XR ABD 2V SUPINE W UPR/DECUB /CTLon 07-29-2020 XR ABD 2V SUPINE W UPR/DECUB/CTL * * *Final Report* * * DATE OF EXAM: Jul 29 2020 11:09AM [id number] - XR ABD 2V SUPINE W UPR/DECUB/CTL / PROCEDURE REASON: Constipation, unspecified constipation type * * * * Physician Interpretation * * * * EXAMINATION: XR ABD 2V SUPINE W UPR/DECUB/CTL HISTORY: RECENT NAUSEA/VOMITING, CONSTIPATION Constipation, unspecified constipation type . TECHNIQUE: XR ABD 2V SUPINE W UPR/DECUB/CTL Laterality: NOT APPLICABLE Number of different views (projections): 2 M: XB_1 COMPARISON: None RESULT: See impression IMPRESSION: No gaseous dilation of bowel. Moderate stool burden throughout the colon and rectum. No pathologic calcifications. Bony structures are normal. No other significant abnormality. 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 Transcribe Date/Time: Jul 29 2020 11:19A Dictated by : LALI ORNELAS MD This examination was interpreted and the report reviewed and electronically signed by: LALI ORNELAS MD on Jul 29 2020 11:19AM EST [id number] [facility] Vital Signs Date Time Vital Sign Value Performing Clinician Facility 01-10-2024 10:55-0500 Body mass index (BMI) [Ratio] 28.17 kg/m2 [employer] Work Phone: [facility] 01-10-2024 10:55-0500 Body weight 69.85 kg Nathan Kiesha DO Work Phone: [facility] 01-10-2024 10:55-0500 Diastolic blood pressure 84 mm[Hg] Nathan Kiesha DO Work Phone: [facility] 01-10-2024 10:55-0500 Systolic blood pressure 128 mm[Hg] Nathan Kiesha DO Work Phone: [facility] 09-12-2023 17:31-0400 Body temperature 98.96 [degF] [facility] 09-12-2023 17:31-0400 Diastolic blood pressure 91 mm[Hg] [facility] 09-12-2023 17:31-0400 FIO2 99 % [facility] 09-12-2023 17:31-0400 Heart rate 122 /min [facility] 09-12-2023 17:31-0400 Respiratory rate 16 /min [facility] 09-12-2023 17:31-0400 Systolic blood pressure 135 mm[Hg] [facility] 05-01-2023 10:55-0400 Body height 157.5 cm Srinivasa Reaper CMS EXPERT.ACCOUNT INSTALLATION SPECIALIST Work Phone: [facility] 05-01-2023 10:55-0400 Body weight 64.86 kg Srinivasa Reaper CMS EXPERT.ACCOUNT INSTALLATION SPECIALIST Work Phone: [facility] 05-01-2023 10:55-0400 Diastolic blood pressure 64 mm[Hg] Srinivasa Reaper CMS EXPERT.ACCOUNT INSTALLATION SPECIALIST Work Phone: [facility] 05-01-2023 10:55-0400 Systolic blood pressure 148 mm[Hg] Srinivasa Reaper CMS EXPERT.ACCOUNT INSTALLATION SPECIALIST Work Phone: [facility] 01-31-2023 19:18-0500 Diastolic blood pressure 82 mm[Hg] [facility] 01-31-2023 19:18-0500 Heart rate 98 /min [facility] 01-31-2023 19:18-0500 Nursing Progress Note Reason Other: this RN discharged pt. pt verbalizes understanding and denies questiosn prior to discharge. [facility] 01-31-2023 19:18-0500 Respiratory rate 16 /min [facility] 01-31-2023 19:18-0500 SaO2% (BldA) [Mass fraction] 100 % [facility] 01-31-2023 19:18-0500 Systolic blood pressure 126 mm[Hg] [facility] 01-31-2023 18:00-0500 Diastolic blood pressure 92 mm[Hg] [facility] 01-31-2023 18:00-0500 Heart rate 110 /min [facility] 01-31-2023 18:00-0500 Mean blood pressure 107 mm[Hg] [facility] 01-31-2023 18:00-0500 SaO2% (BldA) [Mass fraction] 99 % [facility] 01-31-2023 18:00-0500 Systolic blood pressure 138 mm[Hg] [facility] 01-31-2023 17:00-0500 Diastolic blood pressure 97 mm[Hg] [facility] 01-31-2023 17:00-0500 Mean blood pressure 104 mm[Hg] [facility] 01-31-2023 17:00-0500 Systolic blood pressure 117 mm[Hg] [facility] 01-31-2023 16:38-0500 Heart rate 105 /min [facility] 01-31-2023 16:38-0500 Mean blood pressure 114 mm[Hg] [facility] 01-31-2023 16:38-0500 Respiratory rate 18 /min [facility] 01-31-2023 13:49-0500 Body temperature 97.88 [degF] [facility] 01-31-2023 13:49-0500 Heart rate 118 /min [facility] 12-30-2022 14:55-0500 Body temperature 97.88 [degF] [facility] 12-30-2022 14:55-0500 Diastolic blood pressure 81 mm[Hg] [facility] 12-30-2022 14:55-0500 Heart rate 84 /min [facility] 12-30-2022 14:55-0500 Mean blood pressure 100 mm[Hg] [facility] 12-30-2022 14:55-0500 Respiratory rate 20 /min [facility] 12-30-2022 14:55-0500 SaO2% (BldA) [Mass fraction] 98 % [facility] 12-30-2022 14:55-0500 Systolic blood pressure 137 mm[Hg] [facility] 12-30-2022 14:35-0500 Body temperature 97.88 [degF] [facility] 12-30-2022 14:35-0500 Diastolic blood pressure 79 mm[Hg] [facility] 12-30-2022 14:35-0500 Heart rate 82 /min [facility] 12-30-2022 14:35-0500 Mean blood pressure 94 mm[Hg] [facility] 12-30-2022 14:35-0500 Respiratory rate 16 /min [facility] 12-30-2022 14:35-0500 SaO2% (BldA) [Mass fraction] 97 % [facility] 12-30-2022 14:35-0500 Systolic blood pressure 123 mm[Hg] [facility] 12-30-2022 13:35-0500 Body temperature 97.88 [degF] [facility] 12-30-2022 13:35-0500 Diastolic blood pressure 70 mm[Hg] [facility] 12-30-2022 13:35-0500 Heart rate 80 /min [facility] 12-30-2022 13:35-0500 Mean blood pressure 89 mm[Hg] [facility] 12-30-2022 13:35-0500 Respiratory rate 17 /min [facility] 12-30-2022 13:35-0500 SaO2% (BldA) [Mass fraction] 96 % [facility] 12-30-2022 13:35-0500 Systolic blood pressure 126 mm[Hg] [facility] 12-30-2022 13:00-0500 Respiratory rate 12 /min [facility] 12-30-2022 12:55-0500 Respiratory rate 9 /min [facility] 12-30-2022 12:50-0500 Respiratory rate 10 /min [facility] 12-30-2022 08:15-0500 Body temperature 98.24 [degF] [facility] 12-30-2022 08:15-0500 Heart rate 111 /min [facility] 11-27-2022 22:26-0500 [facility] Comment on above: Result Comment: ensured that all pt belo ngings are sent with pt. pt has no questions or concerns. report given to EMS. pt stable and no s/s of distress. pt off unit to transfer 11-27-2022 22:00-0500 Diastolic blood pressure 97 mm[Hg] [facility] 11-27-2022 22:00-0500 Heart rate 134 /min [facility] 11-27-2022 22:00-0500 Hourly Rounding [facility]i [facility] 11-27-2022 22:00-0500 Mean blood pressure 116 mm[Hg] [facility]i [facility] 11-27-2022 22:00-0500 Systolic blood pressure 154 mm[Hg] [facility]i [facility] 11-27-2022 21:50-0500 Blood Pressure Location Fredi [facility] 11-27-2022 21:50-0500 Diastolic blood pressure 90 mm[Hg] [facility]i [facility] 11-27-2022 21:50-0500 Heart rate 133 /min Fredi [facility] 11-27-2022 21:50-0500 Hourly Rounding Fredi [facility] 11-27-2022 21:50-0500 Mean blood pressure 113 mm[Hg] [facility]i [facility] 11-27-2022 21:50-0500 Respiratory rate 18 /min [facility]i [facility] 11-27-2022 21:50-0500 SaO2% (BldA) [Mass fraction] 98 % Fredi [facility] 11-27-2022 21:50-0500 Systolic blood pressure 159 mm[Hg] Fredi [facility] 11-27-2022 21:37-0500 Blood Pressure Location Fredi K[facility] 11-27-2022 21:37-0500 Diastolic blood pressure 88 mm[Hg] Fredi [facility] 11-27-2022 21:37-0500 Heart rate 131 /min Fredi [facility] 11-27-2022 21:37-0500 Mean blood pressure 111 mm[Hg] Fredi [facility] 11-27-2022 21:37-0500 SaO2% (BldA) [Mass fraction] 97 % Fredi [facility]UMACHERAS[facility] 11-27-2022 21:37-0500 Systolic blood pressure 158 mm[Hg] Fredi [facility] 11-27-2022 21:30-0500 Blood Pressure Location Fredi [facility]UMACHERAS[facility] 11-27-2022 21:30-0500 Body temperature 98.6 [degF] Fredi [facility] 11-27-2022 19:00-0500 Body temperature 98.24 [degF] Fredi [facility] 11-27-2022 17:15-0500 Body temperature 98.06 [degF] [facility]i [facility] 11-27-2022 14:02-0500 Heart rate 99 /min Fredi [facility] 07-14-2022 07:00-0400 Body temperature 98.6 [degF] Charlottesveta Villagomez [facility] 07-14-2022 07:00-0400 Diastolic blood pressure 67 mm[Hg] Kaylinn D[facility]ken [facility] 07-14-2022 07:00-0400 Heart rate 80 /min Kaylinn D[facility] 07-14-2022 07:00-0400 Mean blood pressure 83 mm[Hg] Kaylinn D[facility] 07-14-2022 07:00-0400 Respiratory rate 17 /min Kaylinn D[facility] 07-14-2022 07:00-0400 Systolic blood pressure 115 mm[Hg] Kaylinn D[facility] 07-14-2022 06:07-0400 Body temperature 98.24 [degF] Kaylinn D[facility] 07-14-2022 06:07-0400 Diastolic blood pressure 79 mm[Hg] Kaylinn D[facility]ken [facility] 07-14-2022 06:07-0400 Heart rate 90 /min Kaylinn Dokken [facility] 07-14-2022 06:07-0400 Respiratory rate 18 /min Kaylinn D[facility]ken [facility] 07-14-2022 06:07-0400 SaO2% (BldA) [Mass fraction] 100 % Kaylinn D[facility]ken [facility] 07-14-2022 06:07-0400 Systolic blood pressure 134 mm[Hg] Kaylinn Dokken [facility] 07-14-2022 05:30-0400 Hourly Rounding Nathan POP [facility] Comment on above: Result Comment: Pt discharged per physic santiago orders. Pt ambulates off unit with a steady gait 07-14-2022 05:15-0400 Diastolic blood pressure 77 mm[Hg] Nathan KIESHA [facility] 07-14-2022 05:15-0400 Heart rate 105 /min Nathan KIESHA [facility] 07-14-2022 05:15-0400 Hourly Rounding Nathan KIESHA [facility] 07-14-2022 05:15-0400 Mean blood pressure 89 mm[Hg] Nathan KIESHA [facility] 07-14-2022 05:15-0400 Respiratory rate 18 /min Nathan KIESHA [facility] 07-14-2022 05:15-0400 Systolic blood pressure 113 mm[Hg] Nathan KIESHA [facility] 04-18-2022 11:00-0400 Body height 160.02 cm Domo Hodges Other [facility] [employer] Other 04-18-2022 11:00-0400 Body mass index (BMI) [Ratio] 23.03 kg/m2 Domo Hodges Other [employer] Other 04-18-2022 11:00-0400 Body weight 58.97 kg Domo Genotrisha Other [employer] Other 02-09-2022 11:41-0400 Body height 157.48 cm Charlene Billow DO Work Phone: BM-AWAPS-Obeuwy 320 Work Phone: 02-09-2022 11:41-0400 Body mass index (BMI) [Ratio] 24.51 kg/m2 Charlene Billow DO Work Phone: ZE-YQVAP-Vwcnjb 320 Work Phone: 02-09-2022 11:41-0400 Body surface area Derived from formula 1.61 m2 Charlene Billow DO Work Phone: UZ-DKMTG-Otmlhw 320 Work Phone: 02-09-2022 11:41-0400 Body weight 60.78 kg Charlene Billow DO Work Phone: EC-JNUIJ-Dystst 320 Work Phone: 02-09-2022 11:41-0400 Diastolic blood pressure 87 mm[Hg] Charlene Billow DO Work Phone: BY-PUGYO-Bkutki 320 Work Phone: 02-09-2022 11:41-0400 Systolic blood pressure 136 mm[Hg] Charlene Billow DO Work Phone: LI-LEKWC-Klstce 320 Work Phone: 02-09-2022 11:41-0400 0 1 Charlene Billow DO Work Phone: AU-IHZQT-Mnagfr 320 Work Phone: Comment on above: GRAV PARA [employer] 04-19-2021 14:53-0400 Body height 157.48 cm Charlene Billow DO Work Phone: RV-BKTWD-Hppjwt 320 Work Phone: 04-19-2021 14:53-0400 Body mass index (BMI) [Ratio] 21.77 kg/m2 Charlene Billow DO Work Phone: VM-YNDDP-Qarwik 320 Work Phone: 04-19-2021 14:53-0400 Body surface area Derived from formula 1.53 m2 Charlene Billow DO Work Phone: MG-EBQXC-Esggun 320 Work Phone: 04-19-2021 14:53-0400 Body weight 53.98 kg Charlene Billow DO Work Phone: XY-PAVVT-Wbemvz 320 Work Phone: 04-19-2021 14:53-0400 Diastolic blood pressure 83 mm[Hg] Charlene Billow DO Work Phone: EM-FAGNP-Wpyamh 320 Work Phone: 04-19-2021 14:53-0400 Heart rate 108 /min Charlene Billow DO Work Phone: FZ-AXIRB-Goftvt 320 Work Phone: 04-19-2021 14:53-0400 Systolic blood pressure 142 mm[Hg] Charlene Billow DO Work Phone: NK-CZLPN-Zohskl 320 Work Phone: 04-19-2021 14:53-0400 0 1 Charlene Billow DO Work Phone: HL-BZVJS-Xjirrx 320 Work Phone: Comment on above: GRAV PARA [employer] Encounters Encounter Date Encounter Type Care Provider Facility Start: 01-30-2024 End: 01-30-2024 ambulatory NATHAN KIESHA Not Available Start: 01-10-2024 End: 01-10-2024 ambulatory NATHAN KIESHA Not Available Start: 01-10-2024 End: 01-10-2024 Office outpatient visit 15 minutes Nathan Kiesha DO Work Phone: [facility] Comment on above: Menorrhagia with reg ular cycle; Pelvic pain in female; Uses control Start: 01-02-2024 Refill Charlene Billow D O Work Phone: [facility] Comment on above: Refill Request Start: 12-31-2023 ambulatory Charlene Billow D O Work Phone: Obstetrics/Gynecology Comment on above: pain Start: 12-10-2023 End: 12-10-2023 ambulatory CRUZ RODRÍGUEZ Facility:[facility] Start: 10-23-2023 End: 10-23-2023 ambulatory CRUZ Gregorio NICK Not Available Start: 10-22-2023 ambulatory Charlene Billow D O Work Phone: [facility] Start: 10-22-2023 Patient encounter procedure Charlene Billow DO Work Phone: Obstetrics/Gynecology Comment on above: office visit Start: 09-12-2023 End: 09-12-2023 Emergency department patient visit [facility] Start: 09-12-2023 End: 09-12-2023 Emergency department patient visit [facility] Start: 08-30-2023 Manual pelvic examination Charlene Billow DO Work Phone: Obstetrics/Gynecology Comment on above: Pelvic pain in femal e (Primary Dx) Start: 08-26-2023 ambulatory Charlene Billow D O Work Phone: Obstetrics/Gynecology Comment on above: painful periods Start: 08-24-2023 End: 08-24-2023 [facility] Start: 08-24-2023 End: 08-24-2023 Manual pelvic examination Srinivasa Himanshu FARRELL.ACCOUNT INSTALLATION SPECIALIST Work Phone: Gynecology Comment on above: High-tone pelvic stella or dysfunction (Primary Dx); Chronic pelvic pain in female Start: 08-24-2023 End: 08-24-2023 Telemedicine consultation with patient Srinivasa Hickmaner CMS EXPERT.ACCOUNT INSTALLATION SPECIALIST Work Phone: [facility] Start: 08-13-2023 ambulatory Charlene Billow D O Work Phone: Obstetrics/Gynecology Comment on above: painful period Start: 08-02-2023 Telephone encounter Charlene Bill ow DO Work Phone: Gynecology Comment on above: Insurance Authorizat ion (Orilissa) Start: 07-16-2023 End: 07-16-2023 ambulatory CRUZ RODRÍGUEZ Facility:[facility] Start: 06-12-2023 End: 06-12-2023 ambulatory [facility] Facility:[facility] Start: 06-12-2023 End: 06-12-2023 Subsequent hospital visit by physician [facility] Suki (I-Stat/1.5t) Radiology Comment on above: Pelvic and perineal pain [R10.2] Start: 05-17-2023 End: 05-17-2023 ambulatory [facility] Facility:[facility] Start: 05-17-2023 End: 05-17-2023 Manual pelvic examination Charlene Rodriguez DO Work Phone: Obstetrics/Gynecology Comment on above: Endometriosis (Prima ry Dx); Pelvic and perineal pain Start: 05-17-2023 End: 05-17-2023 Telemedicine consultation with patient Charlene Rodriguez DO Work Phone: [facility] Start: 05-11-2023 Telephone encounter Charlene escobedo DO Work Phone: Gynecology Comment on above: Vaginal Bleeding Start: 05-09-2023 End: 07-20-2023 ambulatory SRINIVASA DOWNS [place] Start: 05-01-2023 End: 05-01-2023 ambulatory [facility] Facility:[facility] Start: 05-01-2023 End: 05-01-2023 Patient encounter procedure Srinivasa Hickmaner CMS EXPERT.ACCOUNT INSTALLATION SPECIALIST Work Phone: Gynecology Comment on above: Chronic pelvic pain in female (Primary Dx); Constipation, unspecified constipation type; High-tone pelvic floor dysfunction; Diastasis of rectus abdominis; Dysmenorrhea; Other specified dyspareunia Start: 04-22-2023 ambulatory Charlene Rodriguez D O Work Phone: Obstetrics/Gynecology Comment on above: painful Start: 04-11-2023 End: 04-11-2023 ambulatory [facility] Facility:[facility] Start: 03-23-2023 End: 03-23-2023 [facility] Facility:[facility] Start: 01-31-2023 End: 01-31-2023 Emergency department patient visit Edin Bermudez [facility] Start: 01-31-2023 End: 01-31-2023 [facility] Start: 12-30-2022 End: 12-30-2022 ambulatory Edin Bermudez [facility] Start: 12-30-2022 End: 12-30-2022 Patient encounter procedure Edin [facility] Start: 12-05-2022 End: 12-05-2022 [facility] Start: 11-28-2022 End: 12-02-2022 Evaluation and management of inpatient KATHE [facility] Start: 11-28-2022 End: 12-27-2022 Pre-admission assessment [facility]i [facility] Start: 11-27-2022 End: 11-28-2022 ambulatory Fredi DORSEY [facility] Start: 11-27-2022 End: 11-27-2022 OB Triage [facility]i [facility] Start: 09-20-2022 End: 09-21-2022 ambulatory MD Cruz Meza [facility] Start: 08-23-2022 End: 08-23-2022 ambulatory Cruz Rodríguez Facility:[facility] Start: 07-14-2022 End: 07-14-2022 Emergency department patient visit Kumar [facility] Start: 07-14-2022 End: 07-14-2022 OB Triage Nathan POP [facility] Start: 05-16-2022 End: 05-16-2022 ambulatory Cruz Rodríguez Facility:[facility] Start: 04-25-2022 End: 04-25-2022 Patient encounter procedure [facility] Start: 04-18-2022 End: 04-18-2022 ambulatory Domo Hodges Other [facility] [employer] Other Start: 04-18-2022 Patient encounter procedure Domo Carroll [facility] Start: 02-09-2022 Office outpatient vi sit 15 minutes Charlene Rodriguez DO Work Phone: MQ-UXSWA-Kxsrls 320 Work Phone: Start: 09-29-2021 End: 10-02-2021 ambulatory [facility] Start: 09-29-2021 End: 10-02-2021 ambulatory OPAL [facility] Start: 04-19-2021 AUDIT Charlene Rodriguez D O Work Phone: CB-KHAPX-Tzdlmb 320 Work Phone: Start: 04-19-2021 PLVCPOBGYN, Provider : Charlene Rodriguez, Status: Pen, Time: 2:45 PM Nicholas Chau MD Work Phone: RY-Aynnvtf-Lueesdyxs Work Phone: Start: 04-18-2021 Chart Update Nicholas Keating Work Phone: RX-Wcpzzpl-Winrhryfd Work Phone: Procedures Date Procedure Procedure Detail Performing Clinician Start: 08-15-2023 Cytp cerv/vag auto t hin layer prep mnl screen Nathan Kiesha DO Work Phone: Start: 06-12-2023 Mri pelvis w/o & w/c ontrast material Charlene Rodriguez DO Work Phone: Start: 05-16-2022 Antibody screen Cruz parra Comment on above: Order Comment: Reaso n for Exam Encounter for care in first trimester of first preg Result Comment: PERF ORMED BY: [facility] [address] [place] [address] PATHOLOGIST DOOR MANAGER JESUS JIN M.D. Performed By: #### R MO W RFX, VZIGG, RUBELLA IGG, HIV SCREEN, HBSAG #### [facility] , #### CUU, CBC, HCGQNT #### [facility] [address] Start: 02-28-2021 Cystoscopy DOMO BROWNE Start: 08-30-2020 End: 08-30-2020 Antibody screen Comment on above: Performed By: #### T +S #### [facility] [address] [place] [address] Order Comment: TEST TYPE + SCREEN WAS CANCELLED, 08/30/2020 13:37 JOP. Performed By: #### T +S #### [facility] [address] [place] [address] Start: 08-07-2018 RIGHT SHOULDER OPEN DISTAL CLAVICLE EXCISION 1 DOMO HODGES Comment on above: RIGHT SHOULDER OPEN DISTAL CLAVICLE EXCISION RIGHT SHOULDER OPEN DISTAL CLAVICLE EXCISION Appendectomy DOMO HODGES Betamethasone (substance) Gr dorinarosa BRADYK Comment on above: Dose #1: 11/27/22 Colonoscopy DOMO HODGES Endoscope, device (p hysical object) [facility] Nicholas Chau MD Work Phone: Plan of Treatment Date Care Activity Detail Author Start: 08-18-2024 End: 08-18-2024 Patient encounter procedure 08/18/2024 11:00 AM EDT Office Visit [facility] [address] [place] [address] Nathan Pop, DO [address] [address] [facility] Start: 05-25-2024 Influenza vaccination Influenza Vacc ine (#1) [facility] Comment on above: Postponed from 07/27 (Patient Refused) Start: 04-22-2024 End: 04-22-2024 Patient encounter procedure 04/22/2024 9:00 AM EDT Office Visit [facility] [address] [place] [address] Cruz Rodríguez MD [address] [place] [address] [facility] Start: 2024 Urine microalbumin profile DTaP,Tdap,Td Vaccine (7 - Td or Tdap) [facility] Start: 01-30-2024 End: 01-30-2024 Patient encounter procedure 01/30/2024 11:10 AM EST Consult [facility] [address] [id number] Nathan Pop, DO [address] [place] [address] [facility] Start: 01-15-2024 End: 01-15-2024 Professional / ancillary services management 01/15/2024 8:00 AM EST Ancillary Procedure [facility] [address] [id number] [facility] Start: 01-10-2024 End: 01-10-2025 US for US PELVIS-TRANSVAG IF INDICATED Imaging Routine Pelvic pain in female Expected: 01/10/2024 (Approximate), Expires: 01/10/2025 [facility] Work Phone: Comment on above: Expected: 01/10/2024 (Approximate), Expires: 01/10/2025 Start: 11-26-2023 Depression Assessment Depression Ass essment [facility] Start: 07-27-2023 Influenza vaccination [facility] Start: 11-26-2022 DEPRESSION ASSESSMENT DEPRESSION ASS ESSMENT [facility] Start: 05-23-2022 FUV, Provider: Charlene Rodriguez, Status: Pen, Time: 1:30 PM FUV, Provider: Charlene Rodriguez, Status: Pen, Time: 1:30 PM RP-JZLKI-Suebak 320 Work Phone: Start: 08-16-2021 FUV, Provider: Charlene Rodriguez, Status: Pen, Time: 11:15 AM FUV, Provider: Charlene Rodriguez, Status: Pen, Time: 11:15 AM AW-UIUDS-Pmyzng 320 Work Phone: Start: 2016 PAP TESTING PAP TESTING [facility] Start: 2016 Screening for malign ant neoplasm of cervix Pap Testing [facility] Start: [address] 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 Start: 2013 BP CONTROLLED (<130/80) BP CON TROLLED (<130/80) [facility] Start: 2013 HEPATITIS C SCREENING HEPATITIS C [facility] Start: 2013 Hepatitis C screening Hepatitis C [facility] Start: 2013 HIV SCREENING HIV SCREENING [facility] Start: 2013 HIV screening HIV Screening [facility] Start: 1995 COVID-19 VACCINE (#1) COVID-19 VACCI NE (#1) [facility] Start: 1995 HEPATITIS B (1 of 3 - 3-dose series) HEPATITIS B (1 of 3 - 3-dose series) [facility] Start: 1995 Hepatitis B Vaccine (1 of 3 - 3-dose series) Hepatitis B Vaccine (1 of 3 - 3-dose series) [facility] End: 06-15-2024 Mri pelvis w/o & w/contrast material MRI FEMALE PELVIS WO/W IVCON Radiology Routine Pelvic and perineal pain 1 Occurrences starting 05/17/2023 until 06/15/2024 [facility] Work Phone: Comment on above: 1 Occurrences starti ng 05/17/2023 until 06/15/2024 [facility] Immunizations Immunization Date Immunization Notes Care Provider [facility] 09-11-2014 hepatitis A vaccine, adult dosage Nathan Kiesha DO Work Phone: [facility] 09-11-2014 human papilloma viru s vaccine, quadrivalent Nathan Kiesha DO Work Phone: [facility] 09-11-2014 influenza, seasonal, injectable, preservative free Nathan Kiesha DO Work Phone: [facility] 09-11-2014 influenza virus vacc ine, unspecified formulation Charlene Rodriguez DO Work Phone: [facility] 05-04-2014 human papilloma viru s vaccine, quadrivalent Nathna Kiesha DO Work Phone: [facility] 2014 hepatitis A vaccine, adult dosage Nathan Kiesha DO Work Phone: [facility] 2014 human papilloma viru s vaccine, quadrivalent Nathan Kiesha DO Work Phone: [facility] 2014 tetanus toxoid, redu quinton diphtheria toxoid, and acellular pertussis vaccine, adsorbed Nathan Kiesha DO Work Phone: [facility] 04-03-2007 meningococcal polysaccharide (groups A, C, Y and W-135) diphtheria toxoid conjugate vaccine (MCV4P) Nathan Kiesha DO Work Phone: [facility] 05-03-2000 diphtheria, tetanus toxoids and acellular pertussis vaccine, unspecified formulation Nathan Kiesha DO Work Phone: [facility] 05-03-2000 measles, mumps and rubella virus vaccine Nathan Kiesha DO Work Phone: [facility] 05-03-2000 poliovirus vaccine, inactivated Nathan Kiesha DO Work Phone: [facility] 12-29-1997 diphtheria, tetanus toxoids and acellular pertussis vaccine, unspecified formulation Nathan Kiesha DO Work Phone: [facility] 08-01-1996 DTP-Haemophilus influenzae type b conjugate vaccine Nathan Kiesha DO Work Phone: [facility] 08-01-1996 hepatitis B vaccine, pediatric or pediatric/adolescent dosage Nathan Kiesha DO Work Phone: [facility] 08-01-1996 measles, mumps and rubella virus vaccine Nathan Kiesha DO Work Phone: [facility] 08-01-1996 trivalent poliovirus vaccine, live, oral Nathan Kiesha DO Work Phone: [facility] 1995 DTP-Haemophilus influenzae type b conjugate vaccine Nathan Kiesha DO Work Phone: [facility] 1995 hepatitis B vaccine, pediatric or pediatric/adolescent dosage Nathan Kiesha DO Work Phone: [facility] 1995 trivalent poliovirus vaccine, live, oral Nathan Kiesha DO Work Phone: [facility] 1995 DTP-Haemophilus influenzae type b conjugate vaccine Nathan Kiesha DO Work Phone: [facility] 1995 hepatitis B vaccine, pediatric or pediatric/adolescent dosage Nathan Kiesha DO Work Phone: [facility] 1995 trivalent poliovirus vaccine, live, oral Nathan Kiesah DO Work Phone: [facility] Payers Date Payer Category Payer Unknown 2022 Unknown [id number] 2022 Medicaid [id number] 2022 Private Health Insurance [id number] 2022 Self-pay 2020 Unknown [id number] 2018 Private Health Insurance [id number] 1995 Unknown [id number] 2.16.8 [id number] 1995 Unknown [id number] 2.16.8 [id number] 1995 Unknown [id number] 2.16.8 [id number] 1995 Unknown [id number] 2.16.8 [id number] 1995 Unknown [id number] 2.16.8 [id number] 1995 Unknown [id number] 2.16.8 [id number] 1995 Unknown [id number] 2.16.8 [id number] 1995 Unknown [id number] 2.16.8 [id number] 1995 Unknown [id number] 2.16.84 [id number] 1995 Unknown [id number] 2.16.84 [id number] 1995 Unknown [id number] Unknown [id number] 2.16.8 [id number] Unknown [id number] 2.16.8 [id number] Unknown [id number] 2.16.8 [id number] Social History Date Type Detail Facility Start: 07-16-2023 End: 09-19-2023 Always uses seat belt Always uses seat belt [facility] Start: 03-10-2021 End: 05-01-2023 Tobacco smoking status Never smoked tobacco (finding) [facility] Tobacco smoking status Never [facility] Start: 07-16-2023 End: 09-19-2023 Sex Assigned At Female [facility] [employer] Other [facility] Comment on above: denies. Tobacco smoking status No Smokin g Status Entered [facility] Start: 04-11-2023 End: 05-01-2023 Tobacco use and exposure Smokeless tobacco non-user [facility] Start: 04-11-2023 End: 12-10-2023 Alcohol intake Current drinker of alcohol (finding) [facility] Start: 10-08-2020 Alcohol Comment maybe a few dr martinez a month [facility] Start: 1995 Sex Assigned At Not on file [facility] Start: 01-10-2024 Alcohol intake Lifetime non-d rome (finding) [facility] Within the last year , have you been afraid of your partner or ex-partner? No [facility] Are you now , , , , never or living with a partner? Living with partner [facility] How often to you hav e a drink containing alcohol? Monthly or less [facility] How many standard drinks containing alcohol do you have on a typical day? 1 or 2 [facility] How often do you hav e 6 or more drinks on 1 occasion? Never [facility] Do you feel stress - tense, restless, nervous, or anxious, or unable to sleep at night because your mind is troubled all the time - these days [OSQ] Not at all [facility] (I/We) worried wheth er (my/our) food would run out before (I/we) got money to buy more. Never true [facility] Start: 04-23-2023 Education 13 [facility] Start: 04-23-2023 Alcohol Comment caffeine: 1-2 cups per day, coffee and pop [facility] Functional Status Date Assessment Result Facility 09-12-2023 Functional Status N/A [facility] 01-31-2023 Functional Status N/A [facility] 12-30-2022 Functional Status N/A [facility] 11-27-2022 Functional Status N/A [facility] 07-14-2022 N/A [facility] Clinical Notes 04-18-2022 to 01-10-2024 Nathan Pop DO - 01/10/2024 10:30 AM ESTTelephone Encounter - Pippa Simon RN - 01/03/2024 4:29 PM ESTTelephone Encounter - Alena Tracy - 01/02/2024 3:52 PM EST Note Date & Type Note Facility 01-10-2024 History of Presen t illness Narrative Reason for Appointment: Patient ID: Driss Cope is a 28 y.o. female who presents for Menorrhagia (Cramping with bleeding) Patient presents today for Acute Visit appointment. Current Medications: has a current medication list which includes the following prescription(s): levonorgestrel-ethinyl estradiol, metoprolol succinate xl, norethindrone, and norgestimate-ethinyl estradiol. Medical History: Active Ambulatory Problems Diagnosis Date Noted Acquired equinus deformity of foot 03/29/2023 Displacement of cervical intervertebral disc without myelopathy 03/29/2023 Dysmenorrhea 03/29/2023 Endometriosis 03/29/2023 Gastroparesis 03/29/2023 Hypertension (CMS/HCC) 03/29/2023 Intractable migraine without aura and with status migrainosus (CMS/HCC) 03/29/2023 Migraines (CMS/HCC) 03/29/2023 Chronic pelvic pain in female 03/29/2023 Pain in female genitalia on intercourse 03/29/2023 Pain on swallowing 03/29/2023 Panic disorder (CMS/HCC) 03/29/2023 Patellofemoral disorders, left knee 03/29/2023 Patellofemoral disorders, right knee 03/29/2023 Posterior calcaneal exostosis 03/29/2023 Scapular dyskinesis 03/29/2023 Scoliosis 03/29/2023 Seasonal allergic rhinitis due to pollen 03/29/2023 Tachycardia, paroxysmal (CMS/HCC) 03/29/2023 Tension headache 03/29/2023 Vitamin B12 deficiency 03/29/2023 Vitamin D deficiency 03/29/2023 Other chronic pain 03/29/2023 Resolved Ambulatory Problems Diagnosis Date Noted No Resolved Ambulatory Problems Past Medical History: Diagnosis Date Amenorrhea d/t oral contraceptive pills John San infection History of menstrual cramps Varicella zoster Visual impairment Family History Problem Relation Name Age of Onset Hypertension Mother Colon cancer Father Anemia Father Breast cancer Maternal Grandmother Hypertension Maternal Grandfather Cancer Maternal Grandfather Colon cancer Paternal Grandfather Social History Tobacco Use Smoking status: Never Smokeless tobacco: Never Substance Use Topics Alcohol use: Never Comment: caffeine: 1-2 cups per day, coffee and pop Drug use: Never Past Surgical History: Procedure Laterality Date APPENDECTOMY 05/2016 at [facility] 12/2022 retained placenta DISTAL CLAVICLE EXCISION Right 07/2018 Shoulder - open - DAP LAPAROSCOPY DIAGNOSTIC / BIOPSY / ASPIRATION / LYSIS 02/2019 endometriosis, 2019 SHOULDER SURGERY Right open distal clavicle excision-DAP VAGINAL DELIVERY 11/2022 No Known Allergies Review of Systems: Review of Systems Constitutional: Negative. HENT: Negative. Eyes: Negative. Respiratory: Negative. Cardiovascular: Negative. Gastrointestinal: Negative. Genitourinary: Negative. Musculoskeletal: Negative. Skin: Negative. Neurological: Negative. All other systems reviewed and are negative. Hematological: Negative. Endocrine: Negative. Allergic/Immunologic: Negative. Objective Physical Exam Constitutional: Appearance: Normal appearance. She is well-developed. Cardiovascular: Rate and Rhythm: Normal rate and regular rhythm. Pulmonary: Effort: Pulmonary effort is normal. Breath sounds: Normal breath sounds. Abdominal: General: Bowel sounds are normal. There is no distension. Palpations: Abdomen is soft. Tenderness: There is no abdominal tenderness. There is no guarding or rebound. Musculoskeletal: General: No swelling. Normal range of motion. Right lower leg: No edema. Left lower leg: No edema. Neurological: Mental Status: She is alert and oriented to person, place, and time. Skin: General: Skin is warm and dry. Psychiatric: Mood and Affect: Mood normal. Behavior: Behavior normal. Vitals and nursing note reviewed. Exam conducted with a low emission automobile designer present. Vitals: Estimated body mass index is 28.17 kg/m as calculated from the following: Height as of 10/23/23: 5' 2 . Weight as of this encounter: 154 lb. BP: 128/84 No LMP recorded. Assessment/Plan Encounter Diagnoses Name Primary? Menorrhagia with regular cycle Pelvic pain in female Uses control Will stop current ocp regimen, will switch to jolessa, obtain ultrasound, pt desires surgical mgmt for ho endometriosis, will schedule pt for dx lap with possibles, discussed myfembree and orilissa, states tried orilissa before, pt desire future fertility Documented by Nathan Pop DO on behalf of: Nathan Pop DO documented in this encounter [facility] 01-03-2024 Miscellaneous Notes Refill(s) request: Requested Prescriptions Pending Prescriptions Disp Refills norethindrone (AYGESTIN) 5 mg tablet 60 tablet 5 Sig: Take 2 tablets by mouth once daily. Request from: Patient Last order: Disp Refills Start End norethindrone (AYGESTIN) 5 mg tablet 60 tablet 5 05/17/2023 11/13/2023 Sig: Take 2 tablets by mouth once daily. Sent to pharmacy as: norethindrone (AYGESTIN) 5 mg tablet Class: Normal Route: ORAL Order: [id number] E-Prescribing Status: Receipt confirmed by pharmacy (05/17/2023 1:16 PM EDT) Last visit: Office visit with provider Dr. Rodriguez on date 12/10/23 IMPRESSION: Ms. Cope is a 28 year old female who presents today with pelvic pain, endometriosis We discussed at length what is known about the pathophysiology of endometriosis. Educated that there is little if any correlation between the severity of endometriosis seen at the time of surgery and the severity of pain symptoms or even implications for fertility. The diagnosis can only be confirmed by surgery with tissue sample examined by pathology. Educated that endometriosis is often a chronic condition that may recur and often requires a senior care treatment plan. Once endometriosis is identified, there are many effective therapies for endometriosis, but, unfortunately, there is no single therapy that is effective for all women with endometriosis-related pelvic pain. The first line therapy for women with endometriosis who are not trying to conceive is often hormonal suppression and approximately 70% of women experience improvement in their pain with hormonal suppression (i.e., progestins, oral contraceptives). Surgical therapy with excision and/or ablation of endometriosis provides a similar chance for pain improvement (~ 70%), but the risk of recurrent pain approaches 50% just 2 - 4 years after surgery. Repetitive surgeries tend to be less successful than the initial surgery for the treatment of pain. Finally, we also discussed that even when endometriosis is identified in women with pelvic pain, it is often not the only cause of pain and other possible sources of pain should be identified and treated. These causes may include gastrointestinal, genitourinary, psychological, or musculoskeletal. Patient has failed multiple non-surgical treatment modalities. Patient desires to proceed with surgical management. We discussed proceeding with diagnostic laparoscopy, excision of endometriosis. We discussed the risks of the procedure including risks of bleeding, infection and injury to surrounding organ structures such as bowel, bladder and major vessels. Surgical consent signed. Future appointments: Future Appointments Date Time Provider Department Center 05/20/2024 10:00 AM Kevin Crenshaw [facility] 06/23/2024 10:30 AM Charlene Rodriguez DO [facility] Appointment scheduled: As listed above Action taken: Refill request routed to clinician Pippa Simon RN January 03, 2024 4:29 PM Patient: Driss Cope : 1995 Provider: Charlene Rodriguez DO Caller Phone #: [phone] (home) [phone] (cell) Reason for call: b/c refill Message routed to nurse triage Date of next visit: MEGAN: 12/10/2023 documented in this encounter [facility] 12-10-2023 Note HNO ID: [id number] Author: CHARLENE RODRIGUEZ DO Service: ? Author Type: Physician Type: Progress Notes Filed: 12/10/2023 15:14 Note Text: [facility] SECTION FOR MINIMALLY INVASIVE GYNECOLOGIC SURGERY OUTPATIENT VISIT DATE 12/10/2023 OUTPATIENT VISIT TYPE Follow-up visit PRIMARY CARE PHYSICIAN: Cruz Rodríguez [address] [place] [id number] REFERRING PHYSICIAN: Self CHIEF COMPLAINT: No chief complaint on file. HISTORY OF PRESENT ILLNESS: Driss Cope is a pleasant 28 year old female who presents for evaluation of pelvic pain. ========= MEGAN 07/16/23: IMPRESSION: Ms. Cope is a 28 year old female who presents today with pelvic pain Reviewed pelvic MRI. Discussed findings with patient. Discussed medical and surgical management options. Rx'd Orilissa 150 mg daily. If patient continues to have pain, will proceed with diagnostic laparoscopy. Encouraged follow up with pelvic floor PT. Written and verbal health teaching given to patient, patient verbalizes understanding and agrees with treatment plan. Charlene Rodriguez, DO In clinic today, pt reports she still has pain monthly but no bleeding. States Orilissa has not improved her pain. She continues to have cramping and discomfort. Has failed norethindrone and Orilissa. 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 History Comments: Sexual Activity: Never; No partner data on record Contraception: Pill Past Obstetrical History: OB History T0 L1 SAB0 IAB0 Ectopic0 Multiple0 Live Births0 Past Medical History: PAST MEDICAL HISTORY Diagnosis Date Endometriosis HTN (hypertension) PONV (postoperative nausea and vomiting) Past Surgical History: PAST SURGICAL HISTORY Procedure Laterality Date APPENDECTOMY 2016 COLONOSCOPY COLONOSCOPY 10/25/2020 repeat 5 years PAST SURGICAL HISTORY OF 02/2019; 08/2020 laparoscopy for endometriosis Family History: FAMILY HISTORY Problem Relation Age of Onset Cancer Father Hypertension Maternal Grandfather Anesthesia Problems No Family History Blood Clots No Family History Clotting Disorder No Family History Social History: Social History Tobacco Use Smoking status: Never Smokeless tobacco: Never Substance Use Topics Alcohol use: Yes Comment: maybe a few drinks a month Drug use: No Current Outpatient Medications Medication Sig traMADol (ULTRAM) 50 mg tablet Take 1 tablet by mouth every 4 hours as needed for pain. elagolix (ORILISSA) 150 mg tablet Take 1 tablet (150 mg) by mouth once daily. metoprolol succinate ER (TOPROL XL) 25 mg 24 hr tablet norethindrone (AYGESTIN) 5 mg tablet Take 1 tablet by mouth once daily. baclofen suppository 10 mg (CPD) Unwrap and insert one suppository vaginally daily at bedtime. (Patient not taking: Reported on 12/10/2023) norethindrone (AYGESTIN) 5 mg tablet Take 2 tablets by mouth once daily. iv contrast (will be provided with radiology test) MRI Female Pelvis Inject, intravenously, once for 1 dose. No IV access, insert saline lock prior to the beginning of sedation, infusion, injection of imaging exam. Discontinue saline lock post exam. If Pt has a central line or IVAD, may access for administration according to line specific nursing protocol. Once exam is complete flush line and de-access according to line specific nursing protocol in the MR contrast administration guidelines link. Surgical Lubricant Jelly gel For MRI Female Pelvis, MRI department to provide. Administer intra-vaginal Surgilube immediately prior the MRI procedure (total amount to patient toleranace). cyclobenzaprine (FLEXERIL) 5 mg tablet Take 1 tablet by mouth at bedtime as needed. (Patient not taking: Reported on 12/10/2023) FLUoxetine (PROZAC) 10 mg capsule Take 10 mg by mouth once daily. (Patient not taking: Reported on 05/01/2023) No current facility-administered medications for this visit. Allergies As of Date: 12/10/2023 (No Known Allergies) Fully Assessed 12/10/2023 REVIEW OF SYSTEMS: POSITIVES IN BOLD Constitutional: Denies fever or chills GI: Denies abdominal pain, nausea, vomiting, bloody stools or diarrhea : Denies dysuria Psychiatric: Denies depression or anxiety PHYSICAL EXAMINATION: Vital Signs: 12/10/23 1019 BP: 124/84 Pulse: 98 Weight: 68.9 kg (151 lb 14.4 oz) Body mass index is 27.78 kg/m?. General appearance: Well appearing, alert, in no acute distress, well-hydrated, well nourished. Skin: Skin color, texture, turgor normal, no suspicious rashes or lesions Abdomen: Normal abdominal exam, Abdomen soft, non-tender. Bowel sounds normal. No masses, organomegaly see below IMPRESSION: Ms. Cope is a 28 year old female who presents today with pelvic (more content not included)... [facility] 09-12-2023 Hospital Discharg e instructions Patient Education 09/12/2023 18:18:13 How to Take Your Blood Pressure How to Take Your Blood Pressure Blood pressure is a measurement of how strongly your blood is pressing against the guidry of your arteries. Arteries are blood vessels that carry blood from your heart throughout your body. Your health care provider takes your blood pressure at each office visit. You can also take your own blood pressure at home with a blood pressure monitor. You may need to take your own blood pressure to: Confirm a diagnosis of high blood pressure (hypertension). Monitor your blood pressure over time. Make sure your blood pressure medicine is working. Supplies needed: Blood pressure monitor. A chair to sit in. This should be a chair where you can sit upright with your back supported. Do not sit on a soft couch or an armchair. Table or desk. Small notebook and pencil or pen. How to prepare To get the most accurate reading, avoid the following for 30 minutes before you check your blood pressure: Drinking caffeine. Drinking alcohol. Eating. Smoking. Exercising. Five minutes before you check your blood pressure: Use the bathroom and urinate so that you have an empty bladder. Sit quietly in a chair. Do not talk. How to take your blood pressure To check your blood pressure, follow the instructions in the manual that came with your blood pressure monitor. If you have a digital blood pressure monitor, the instructions may be as follows: 1.Sit up straight in a chair. 2.Place your feet on the floor. Do not cross your ankles or legs. 3.Rest your left arm at the level of your heart on a table or desk or on the arm of a chair. 4.Pull up your shirt sleeve. 5.Wrap the blood pressure cuff around the upper part of your left arm, 1 inch (2.5 cm) above your elbow. It is best to wrap the cuff around bare skin. 6.Fit the cuff snugly, but not too tightly, around your arm. You should be able to place only one finger between the cuff and your arm. 7.Position the cord so that it rests in the bend of your elbow. 8.Press the power button. 9.Sit quietly while the cuff inflates and deflates. 10.Read the digital reading on the monitor screen and write the numbers down (record them) in a notebook. 11.Wait 2 3 minutes, then repeat the steps, starting at step 1. What does my blood pressure reading mean? A blood pressure reading consists of a higher number over a lower number. Ideally, your blood pressure should be below 120/80. The first ( top ) number is called the systolic pressure. It is a measure of the pressure in your arteries as your heart beats. The second ( bottom ) number is called the diastolic pressure. It is a measure of the pressure in your arteries as the heart relaxes. Blood pressure is classified into four stages. The following are the stages for adults who do not have a short-term serious illness or a chronic condition. Systolic pressure and diastolic pressure are measured in a unit called mm Hg (millimeters of mercury). Normal Systolic pressure: below 120. Diastolic pressure: below 80. Elevated Systolic pressure: 120 129. Diastolic pressure: below 80. Hypertension stage 1 Systolic pressure: 130 139. Diastolic pressure: 80 89. Hypertension stage 2 Systolic pressure: 140 or above. Diastolic pressure: 90 or above. You can have elevated blood pressure or hypertension even if only the systolic or only the diastolic number in your reading is higher than normal. Follow these instructions at home: Medicines Take dtwn-xec-xrdwddn and prescription medicines only as told by your health care provider. Tell your health care provider if you are having any side effects from blood pressure medicine. General instructions Check your blood pressure as often as recommended by your health care provider. Check your blood pressure at the same time every day. Take your monitor to the next appointment with your health care provider to make sure that: ?You are using it correctly. ?It provides accurate readings. Understand what your goal blood pressure numbers are. Keep all follow-up visits. This is important. General tips Your health care provider can suggest a reliable monitor that will meet your needs. There are several types of home blood pressure monitors. Choose a monitor that has an arm cuff. Do not choose a monitor that measures your blood pressure from your wrist or finger. Choose a cuff that wraps snugly, not too tight or too loose, around your upper arm. You should be able to fit only one finger between your arm and the cuff. You can buy a blood pressure monitor at most [employer] or online. Where to find more information [place] [employer]: www.heart.org Contact a health care provider if: Your blood pressure is consistently high. Your blood pressure is suddenly low. Get help right away if: Your systolic blood pressure is higher than 180. Your diastolic blood pressure is higher than 120. These symptoms may be an emergency. Get help right away. Call 911. Do not wait to see if the symptoms will go away. Do not drive yourself to the hospital. Summary Blood pressure is a measurement of how strongly your blood is pressing against the guidry of your arteries. A blood pressure reading consists of a higher number over a lower number. Ideally, your blood pressure should be below 120/80. Check your blood pressure at the same time every day. Avoid caffeine, alcohol, smoking, and exercise for 30 minutes prior to checking your blood pressure. These agents can affect the accuracy of the blood pressure reading. This information is not intended to replace advice given to you by your health care provider. Make sure you discuss any questions you have with your health care provider. Document Revised: 07/27/2022 Document Reviewed: 07/27/2022 [employer] Patient Education 2022 [employer]. 09/12/2023 18:18:13 Hypertension, Adult, Rktr-ds-Rtcw Hypertension, Adult Hypertension is another name for high blood pressure. High blood pressure forces your heart to work harder to pump blood. This can cause problems over time. There are two numbers in a blood pressure reading. There is a top number (systolic) over a bottom number (diastolic). It is best to have a blood pressure that is below 120/80. What are the causes? The cause of this condition is not known. Some other conditions can lead to high blood pressure. What increases the risk? Some lifestyle factors can make you more likely to develop high blood pressure: Smoking. Not getting enough exercise or physical activity. Being overweight. Having too much fat, sugar, calories, or salt (sodium) in your diet. Drinking too much alcohol. Other risk factors include: Having any of these conditions: ?Heart disease. ?Diabetes. ? High cholesterol. ?Kidney disease. ?Obstructive sleep apnea. Having a family history of high blood pressure and high cholesterol. Age. The risk increases with age. Stress. What are the signs or symptoms? High blood pressure may not cause symptoms. Very high blood pressure (hypertensive crisis) may cause: Headache. Fast or uneven heartbeats (palpitations). Shortness of breath. Nosebleed. Vomiting or feeling like you may vomit (nauseous). Changes in how you see. Very bad chest pain. Feeling dizzy. Seizures. How is this treated? This condition is treated by making healthy lifestyle changes, such as: ?Eating healthy foods. ?Exercising more. ?Drinking less alcohol. Your doctor may prescribe medicine if lifestyle changes do not help enough and if: ?Your top number is above 130. ?Your bottom number is above 80. Your personal target blood pressure may vary. Follow these instructions at home: Eating and drinking If told, follow the DASH eating plan. To follow this plan: ?Fill one half of your plate at each meal with fruits and vegetables. ?Fill one fourth of your plate at each meal with whole grains. Whole grains include whole-wheat pasta, brown rice, and whole-grain bread. ?Eat or drink low-fat dairy products, such as skim milk or low-fat yogurt. ?Fill one fourth of your plate at each meal with low-fat (lean) proteins. Low-fat proteins include fish, chicken without skin, eggs, beans, and tofu. ?Avoid fatty meat, cured and processed meat, or chicken with skin. ?Avoid pre-made or processed food. Limit the amount of salt in your diet to less than 1,500 mg each day. Do not drink alcohol if: ?Your doctor tells you not to drink. ?You are , may be , or are planning to become . If you drink alcohol: ?Limit how much you have to: ?0 1 drink a day for women. ?0 2 drinks a day for men. ?Know how much alcohol is in your drink. In the [place] one drink equals one 12 oz bottle of beer (355 mL), one 5 oz glass of wine (148 mL), or one 1 oz glass of hard liquor (44 mL). Lifestyle Work with your doctor to stay at a healthy weight or to lose weight. Ask your doctor what the best weight is for you. Get at least 30 minutes of exercise that causes your heart to beat faster (aerobic exercise) most days of the week. This may include walking, swimming, or biking. Get at least 30 minutes of exercise that strengthens your muscles (resistance exercise) at least 3 days a week. This may include lifting weights or doing Pilates. Do not smoke or use any products that contain nicotine or tobacco. If you need help quitting, ask your doctor. Check your blood pressure at home as told by your doctor. Keep all follow-up visits. Medicines Take qdba-pwe-ogbyfmq and prescription medicines only as told by your doctor. Follow directions carefully. Do not skip doses of blood pressure medicine. The medicine does not work as well if you skip doses. Skipping doses also puts you at risk for problems. Ask your doctor about side effects or reactions to medicines that you should watch for. Contact a doctor if: You think you are having a reaction to the medicine you are taking. You have headaches that keep coming back. You feel dizzy. You have swelling in your ankles. You have trouble with your vision. Get help right away if: You get a very bad headache. You start to feel mixed up (confused). You feel weak or numb. You feel faint. You have very bad pain in your: ?Chest. ?Belly (abdomen). You vomit more than once. You have trouble breathing. These symptoms may be an emergency. Get help right away. Call 911. Do not wait to see if the symptoms will go away. Do not drive yourself to the hospital. Summary Hypertension is another name for high blood pressure. High blood pressure forces your heart to work harder to pump blood. For most people, a normal blood pressure is less than 120/80. Making healthy choices can help lower blood pressure. If your blood pressure does not get lower with healthy choices, you may need to take medicine. This information is not intended to replace advice given to you by your health care provider. Make sure you discuss any questions you have with your health care provider. Document Revised: 08/31/2022 Document Reviewed: 08/31/2022 [employer] Patient Education 2022 [employer]. 09/12/2023 18:18:13 General Headache Without Cause, Assg-kq-Mjlv General Headache Without Cause A headache is pain or discomfort you feel around the head or neck area. There are many causes and types of headaches. In some cases, the cause may not be found. Follow these instructions at home: Watch your condition for any changes. Let your doctor know about them. Take these steps to help with your condition: Managing pain Take ywzt-rzf-thwjlzq and prescription medicines only as told by your doctor. This includes medicines for pain that are taken by mouth or put on the skin. Lie down in a dark, quiet room when you have a headache. If told, put ice on your head and neck area: ?Put ice in a plastic bag. ?Place a towel between your skin and the bag. ?Leave the ice on for 20 minutes, 2 3 times per day. ?Take off the ice if your skin turns bright red. This is very important. If you cannot feel pain, heat, or cold, you have a greater risk of damage to the area. If told, put heat on the affected area. Use the heat source that your doctor recommends, such as a moist heat pack or a heating pad. ? Place a towel between your skin and the heat source. ?Leave the heat on for 20 30 minutes. ?Take off the heat if your skin turns bright red. This is very important. If you cannot feel pain, heat, or cold, you have a greater risk of getting burned. Keep lights dim if bright lights bother you or make your headaches worse. Eating and drinking Eat meals on a regular schedule. If you drink alcohol: ?Limit how much you have to: ?0 1 drink a day for women who are not . ? 0 2 drinks a day for men. ?Know how much alcohol is in a drink. In the [place] one drink equals one 12 oz bottle of beer (355 mL), one 5 oz glass of wine (148 mL), or one 1 oz glass of hard liquor (44 mL). Stop drinking caffeine, or drink less caffeine. General instructions Keep a journal to find out if certain things bring on headaches. For example, write down: ?What you eat and drink. ?How much sleep you get. ?Any change to your diet or medicines. Get a massage or try other ways to relax. Limit stress. Sit up straight. Do not tighten (tense) your muscles. Do not smoke or use any products that contain nicotine or tobacco. If you need help quitting, ask your doctor. Exercise regularly as told by your doctor. Get enough sleep. This often means 7 9 hours of sleep each night. Keep all follow-up visits. This is important. Contact a doctor if: Medicine does not help your symptoms. You have a headache that feels different than the other headaches. You feel like you may vomit (nauseous) or you vomit. You have a fever. Get help right away if: Your headache: ?Gets very bad quickly. ?Gets worse after a lot of physical activity. You have any of these symptoms: ?You continue to vomit. ?A stiff neck. ?Trouble seeing. ?Your eye or ear hurts. ?Trouble speaking. ?Weak muscles or you lose muscle control. ?You lose your balance or have trouble walking. You feel like you will pass out (faint) or you pass out. You are mixed up (confused). You have a seizure. These symptoms may be an emergency. Get help right away. Call your local emergency services (911 in the [place] Do not wait to see if the symptoms will go away. Do not drive yourself to the hospital. Summary A headache is pain or discomfort that is felt around the head or neck area. There are many causes and types of headaches. In some cases, the cause may not be found. Keep a journal to help find out what causes your headaches. Watch your condition for any changes. Let your doctor know about them. Contact a doctor if you have a headache that is different from usual, or if medicine does not help your headache. Get help right away if your headache gets very bad, you throw up, you have trouble seeing, you lose your balance, or you have a seizure. This information is not intended to replace advice given to you by your health care provider. Make sure you discuss any questions you have with your health care provider. Document Revised: 04/12/2022 Document Reviewed: 04/12/2022 [employer] Patient Education 2022 [employer]. Follow Up Care 09/12/2023 17:21:57 With:CRUZ RODRÍGUEZ Address[address] [place] [address] Business (1) When:09/15/2023 18:03:37 Comments:Follow-up with your primary care provider in 3 to 5 days. If symptoms worsen, do not improve, or new symptoms arise please report back to emergency department for further evaluation. [facility] 09-12-2023 Evaluation + Plan note Extrac tank from: Title:ED Note Author:Nikita Reyes PA-C te:09/12/23 Elevated blood pressure read ing (R03.0: Elevated blood-pressure reading, without diagnosis of hypertension) Headache (R51.9: Headache, unspecified) Orders: diphenhydrAMINE, 25 mg = 1 cap(s), Cap, Oral, Once, Stop date 09/12/23 18:02:00 EDT, STAT, Start date 09/12/23 18:02:00 EDT, 09/12/23 18:02:00 EDT ibuprofen, 800 mg = 1 tab(s), Tab, Oral, Once, Stop date 09/12/23 18:01:00 EDT, STAT, Start date 09/12/23 18:01:00 EDT, 09/12/23 18:01:00 EDT metoclopramide, 10 mg = 2 tab(s), Tab, Oral, Once, Stop date 09/12/23 18:02:00 EDT, STAT, Start date 09/12/23 18:02:00 EDT, 09/12/23 18:02:00 EDT [facility]10-16[facility]20[facility] Instructions* Patient Instructions* Srinivasa Downs APRN.CNP - 09/10/2023 9:52 AM EDT Plan: Trial baclofen suppositories - can switch to pill vaginally if suppositories are not affordable Consider Pelvic floor physical therapy - can find local provider [email or web address] Consider going back to see Dr Kuldip Downs APRN.ACCOUNT INSTALLATION SPECIALIST documented [facility] NoteHNO ID: [id number] Author: Charlene Rodriguez DO Service: ? Author Type: Physician Type: Progress Notes Filed: 08/30/2023 11:15 AM Note Text: Tramadol rx sent to pharmacy.[facility]10-05-2023 History of Present illness Narrative* Charlene Rodriguez DO - 08/30/2023 11:13 AM EDT Tramadol rx sent to pharmacy. documented in this encounterSt. [facility]10-[facility]23 Miscellaneous Notes* Telephone Encounter - Chelsie Dueñas RN - 08/30/2023 10:50 AM EDT Last office visit: 08/24/2023 Assessment and Plan No diagnosis found. Trial baclofen suppositories Will send list of PTs Consider going back to [facility] SIGNATURE: Srinivasa Downs APRN.ACCOUNT INSTALLATION SPECIALIST Office visit with Dr. Rodriguez 07/16/2023 IMPRESSION: Ms. Cope is a 28 year old female who presents today with pelvic pain Reviewed pelvic MRI. Discussed findings with patient. Discussed medical and surgical management options. Rx'd Orilissa 150 mg daily. If patient continues to have pain, will proceed with diagnostic laparoscopy. Encouraged follow up with pelvic floor PT. Written and verbal health teaching given to patient, patient verbalizes understanding and agrees with treatment plan. Charlene Rodriguez DO documented in this encounterSt. [facility]09-29-2023 NoteHNO ID: [id number] Author: Srinivasa Downs APRN.ANA LAURA Service: ? Author Type: Nurse Practitioner Type: Progress Notes Filed: 09/10/2023 9:53 AM Note Text: [facility] PATIENT NAME: Driss Cope DATE: 08/24/2023 Patient Name and verified: Yes Patient Location: [place] This Virtual Visit was completed using My Chart Zoom platform. I have communicated my name and active licensure. The patient's identity and physical location were verified at the time of this visit. Either the patient or their legal patient admitting representative has been informed of the risks and benefits of -- and alternatives to -- treatment through a remote evaluation and consents to proceed with the evaluation remotely. Chief Complaint CC/REASON FOR VIRTUAL VISIT: Pelvic pain History of Present Illness: Driss is a 28 year old who presents for a Distance Health visit to discuss pelvic pain. Pain is worsening. Dr Rodriguez put her on Orlissa - not helping. Has only been on it less than a month. Taking muscle relaxer at bedtime. Still having pain at night. Still bleeding but not biggest concern. Left side of stomach and lower back. Naproxen helps for an hour. Pelvic floor physical therapy - hard with baby and work. Hasn't tried to get appointment yet. GI - constipation is improved [place] - hasn't tried due to pain and bleeding 07/16/23 IMPRESSION: Ms. Cope is a 28 year old female who presents today with pelvic pain Reviewed pelvic MRI. Discussed findings with patient. Discussed medical and surgical management options. Rx'd Orilissa 150 mg daily. If patient continues to have pain, will proceed with diagnostic laparoscopy. Encouraged follow up with pelvic floor PT. Written and verbal health teaching given to patient, patient verbalizes understanding and agrees with treatment plan. Charlene Rodriguez, DO 05/01/23 Pelvic floor physical therapy - or can go locally [facility] Trial flexeril at bedtime Can consider Baclofen suppositories Continue Norethindrone - can take up to 3 months for it to stop periods, take at same time every day Relaxation techniques Srinivasa Downs, JAMI.ACCOUNT INSTALLATION SPECIALIST OB History T0 L1 SAB0 IAB0 Ectopic0 Multiple0 Live Births0 Business Support Specialist History LMP: 07/08/2023 (Exact Date), Having periods Age at Menarche: 14 Age at First : 27 Age at Menopause: Business Support Specialist History Comments: Sexual Activity: Never; No partner data on record Contraception: Pill Review of Systems: See HPI Past Medical History: PAST MEDICAL HISTORY Diagnosis Date Endometriosis HTN (hypertension) PONV (postoperative nausea and vomiting) Family History: Family History Problem Relation Age of Onset Cancer Father Hypertension Maternal Grandfather Anesthesia Problems No Family History Blood Clots No Family History Clotting Disorder No Family History Past Surgical History: PAST SURGICAL HISTORY Procedure Laterality Date APPENDECTOMY 2016 COLONOSCOPY COLONOSCOPY 10/25/2020 repeat 5 years PAST SURGICAL HISTORY OF 02/2019; 08/2020 laparoscopy for endometriosis Social History: Social History Tobacco Use Smoking status: Never Smokeless tobacco: Never Substance Use Topics Alcohol use: Yes Comment: maybe a few drinks a month Drug use: No Allergies: ALLERGIES No Known Allergies Allergies updated: Yes Medications: Current Outpatient Medications Medication Sig elagolix (ORILISSA) 150 mg tablet Take 1 tablet (150 mg) by mouth once daily. norethindrone (AYGESTIN) 5 mg tablet Take 2 tablets by mouth once daily. iv contrast (will be provided with radiology test) MRI Female Pelvis Inject, intravenously, once for 1 dose. No IV access, insert saline lock prior to the beginning of sedation, infusion, injection of imaging exam. Discontinue saline lock post exam. If Pt has a central line or IVAD, may access for administration according to line specific nursing protocol. Once exam is complete flush line and de-access according to line specific nursing protocol in the MR contrast administration guidelines link. Surgical Lubricant Jelly gel For MRI Female Pelvis, MRI department to provide. Administer intra-vaginal Surgilube immediately prior the MRI procedure (total amount to patient toleranace). cyclobenzaprine (FLEXERIL) 5 mg tablet Take 1 tablet by mouth at bedtime as needed. metoprolol succinate ER (TOPROL XL) 25 mg 24 hr tablet norethindrone (AYGESTIN) 5 mg tablet Take 1 tablet by mouth once daily. FLUoxetine (PROZAC) 10 mg capsule Take 10 mg by mouth once daily. (Patient not taking: Reported on 05/01/2023) No current facility-administered medications for this visit. Medications reviewed in detail and updated PRN. Yes Physical Exam: VS: not taken General Appearance: 28 year old female in no apparent distress; not ill or toxic appearing HEENT nor (more content not included)...[facility]09-29-2023 History of Present illness Narrative* Srinivasa Downs APRN.ACCOUNT INSTALLATION SPECIALIST - 08/24/2023 9:24 AM EDT Images from the original note were not included. [facility] PATIENT NAME: Driss Cope DATE: 08/24/2023 Patient Name and verified: Yes Patient Location: [place] This Virtual Visit was completed using My Chart Zoom platform. I have communicated my name and active licensure. The patient's identity and physical location wereverified at the time of this visit. Either the patient or their legal patient admitting representative has been informed of the risks and benefits of -- and alternatives to -- treatment through a remote evaluation andconsents to proceed with the evaluation remotely. Chief Complaint CC/REASON FOR VIRTUAL VISIT: Pelvic pain History of Present Illness: Driss is a 28 year old who presents for a Distance Health visit to discuss pelvic pain. Pain is worsening. Dr Rodriguez put her on Orlissa - not helping. Has only been on it less than a month. Taking muscle relaxer at bedtime. Still having pain at night. Still bleeding but not biggest concern. Left side of stomach and lower back. Naproxen helps for an hour. Pelvic floor physical therapy - hard with baby and work. Hasn't tried to get appointment yet. GI - constipation is improved [place] - hasn't tried due to pain and bleeding 07/16/23 IMPRESSION: Ms. Cope is a 28 year old female who presents today with pelvic pain Reviewed pelvic MRI. Discussed findings with patient. Discussed medical and surgical management options. Rx'd Orilissa 150 mg daily. If patient continues to have pain, will proceed with diagnostic laparoscopy. Encouraged follow up with pelvic floor PT. Written and verbal health teaching given to patient, patient verbalizes understanding and agrees with treatment plan. Charlene Rodriguez, DO 05/01/23 Pelvic floor physical therapy - or can go locally [facility] Trial flexeril at bedtime Can consider Baclofen suppositories Continue Norethindrone - can take up to 3 months for it to stop periods, take at same time every day Relaxation techniques Srinivasa Downs APRN.ACCOUNT INSTALLATION SPECIALIST OB History T0 L1 SAB0 IAB0 Ectopic0 Multiple0 Live Births0 Business Support Specialist History LMP: 07/08/2023 (Exact Date), Having periods Age at Menarche: 14 Age at First : 27 Age at Menopause: Business Support Specialist History Comments: Sexual Activity: Never; No partner data on record Contraception: Pill Review of Systems: See HPI Past Medical History: PAST MEDICAL HISTORY Diagnosis Date Endometriosis HTN (hypertension) PONV (postoperative nausea and vomiting) Family History: Family History Problem Relation Age of Onset Cancer Father Hypertension Maternal Grandfather Anesthesia Problems No Family History Blood Clots No Family History Clotting Disorder No Family History Past Surgical History: PAST SURGICAL HISTORY Procedure Laterality Date APPENDECTOMY 2016 COLONOSCOPY COLONOSCOPY 10/25/2020 repeat 5 years PAST SURGICAL HISTORY OF 02/2019; 08/2020 laparoscopy for endometriosis Social History: Social History Tobacco Use Smoking status: Never Smokeless tobacco: Never Substance Use Topics Alcohol use: Yes Comment: maybe a few drinks a month Drug use: No Allergies: ALLERGIES No Known Allergies Allergies updated: Yes Medications: Current Outpatient Medications Medication Sig elagolix (ORILISSA) 150 mg tablet Take 1 tablet (150 mg) by mouth once daily. norethindrone (AYGESTIN) 5 mg tablet Take 2 tablets by mouth once daily. iv contrast (will be provided with radiology test) MRI Female Pelvis Inject, intravenously, once for 1 dose. No IV access, insert saline lock prior to the beginning of sedation, infusion, injection of imaging exam. Discontinue saline lock post exam. If Pt has a central line or IVAD, may access for administration according to line specific nursing protocol. Once exam is complete flush line and de-access according to line specific nursing protocol in the MR contrast administration guidelines link. Surgical Lubricant Jelly gel For MRI Female Pelvis, MRI department to provide. Administer intra-vaginal Surgilube immediately prior the MRI procedure (total amount to patient toleranace). cyclobenzaprine (FLEXERIL) 5 mg tablet Take 1 tablet by mouth at bedtime as needed. metoprolol succinate ER (TOPROL XL) 25 mg 24 hr tablet norethindrone (AYGESTIN) 5 mg tablet Take 1 tablet by mouth once daily. FLUoxetine (PROZAC) 10 mg capsule Take 10 mg by mouth once daily. (Patient not taking: Reported on 05/01/2023) No current facility-administered medications for this visit. Medications reviewed in detail and updated PRN. Yes Physical Exam: VS: not taken General Appearance: 28 year old female in no apparent distress; not ill or toxic appearing HEENT normal facies, no self-reported vision or hearing impairment, normal speech CHEST normal speech pace and normal respiratory effort Recent labs/Diagnostic studies: I have thoroughly reviewed this patients previous notes, encounters, labs, and results prior to this visit. Assessment and Plan Encounter Diagnosis ICD-10-CM 1. High-tone pelvic floor dysfunction N94.89 baclofen suppository 10 mg (CPD) 2. Chronic pelvic pain in female R10.2 baclofen suppository 10 mg (CPD) G89.29 Trial baclofen suppositories Consider Pelvic floor physical therapy - can find local provider [email or web address] Consider going back to see Dr Rodriguez SIGNATURE: Srinviasa Downs APRN.ANA LAURA Medical Decision Making: Problems: Low: Stable chronic illness Risk: Moderate: Drug management Medical Decision Making Level: 3 - Low documented [facility] encounter[facility] Miscellaneous Notes* Telephone Encounter - Marilee Valdez APRN.CNP - 08/17/2023 3:17 PM EDT Recommend sooner appt with [facility] if available vs appt with Srinivasa Downs CNP with CPP team in addition to keeping her scheduled follow up with DR. Rodriguez. Marilee Valdze APRN.CNP August 17, 2023 3:18 PM * Telephone Encounter - Jenn Lopez RN - 08/17/2023 11:45 AM EDT Called pt; verified name/. Pt started Orilissa 150 mg/day on Sunday (pt also taking Aygestin 10 mg/day). Pt says her bleeding has been fine; is only spotting and can wear a panty liner (confirmed LMP 07/08/23). However, pt states she already had severe lower abdominal and lower back cramping before starting Orilissa, which has not improved at all. Pt has tried Motrin, Tylenol, and heat without relief of symptoms; says Naproxen slightly helpful for one hour. RN advised pt to rotate/alternate Motrin and Tylenol (Motrin at 12:00 and 6:00, Tylenolat 3:00 and 9:00, for example), use in combination with heat. Pt open and receptive to trying. Pt also advised to go to ER for severe pain unresolved by home remedies. Routing to providers for additional recommendations. Pt advised providers out of office today and would not respond until next week. MEGAN - Dr. Rodriguez 07/16/23 IMPRESSION: Ms. Cope is a 28 year old female who presents today with pelvic pain Reviewed pelvic MRI. Discussed findings with patient. Discussed medical and surgical management options. Rx'd Orilissa 150 mg daily. If patient continues to have pain, will proceed with diagnostic laparoscopy. Encouraged follow up with pelvic floor PT. Jenn Lopez RN August 17, 2023 11:57 AM * Telephone Encounter - Alena Tracy - 08/16/2023 11:19 AM EDT Patient: Driss Cope : 1995 Provider: Charlene Rodriguez DO Caller Phone #: [phone] (home) [phone] (cell) Reason for call: pt calling regarding message., still in pain. Please call [phone] Message routed to nurse triage Date of next visit: documented in this encounterSt[facility] Miscellaneous Notes* Telephone Encounter - Christa Suárez RN - 08/02/2023 11:29 AM EDT PA for orilissa completed via Cover MyMeds. Driss Cope (Morales: [id number]) - [id number] Orilissa 150MG tablets Status: Sent To Plan Created: August 02, 2023 Sent: August 02, 2023 Christa Suárez RN * Telephone Encounter - Lesley Lynn - 08/02/2023 10:03 AM EDT Pt calling stating that Dr. Rodriguez prescribed Orilissa 150 mg on 07/16. Pt states pharmacy needed a Authorization sent to the pharmacy. Says the pharmacy sent it but still has not heard anything and would like to follow up and see when it is going to be authorized. Pt said she is at work, and if you need to leave a message you are able too. Please advise. Thanks. documented in this encounterSt. [facility]08-[facility]23 NoteHNO ID: [id number] Author: Charlene Rodriguez, DO Service: ? Author Type: Physician Type: Progress Notes Filed: 07/16/2023 12:41 PM Note Text: [facility] FOR MINIMALLY INVASIVE GYNECOLOGIC SURGERY OUTPATIENT VISIT DATE 07/16/2023 OUTPATIENT VISIT TYPE Follow-up visit PRIMARY CARE PHYSICIAN: Cruz Rodríguez [address] [place] [address] REFERRING PHYSICIAN: Cruz Rodríguez CHIEF COMPLAINT: No chief complaint on file. HISTORY OF PRESENT ILLNESS: Driss Cope is a pleasant 28 year old female who presents for evaluation of endometriosis, pelvic pain On daily norethindrone 10 mg - continues to have pelvic pain and bleeding. Sharp, stabbing, cramping pain Lower back and pelvic area Week prior to bleeding Pelvic floor PT - went to one session No bladder/bowel symptoms Flexeril: did not help Constipation: tried miralax Pelvic MRI: RESULT: Uterus: Size: 7.0 x 3.4 x 4.8cm Orientation: Anteverted Endometrium: Homogeneous signal intensity with no mass measuring 6 mm. Junctional zone: Maximum thickness: 7 mm, Homogeneous T2 hypointense signal Cervix: Normal Leiomyomas: None Anterior compartment: Bladder: Normal with no endometriosis Ureters: No involvement. No hydronephrosis. Vesicouterine pouch: No endometriosis Vesicovaginal septum: No endometriosis Prevesicular space: No endometriosis Middle Compartment Disease: Ovaries: - Right ovary: 2.6 x 1.5 x 3.6cm Physiologic follicles present, no endometrioma - Left ovary: 3.1 x 2.0 x 3.1 cm Physiologic follicles present, no endometrioma Fallopian tubes: No hydrosalpinx Torus uterinus (Uterine body): Normal Uterine ligaments: Unremarkable Vagina: No endometriosis Posterior compartment disease: Retrocervical Space: No evidence of endometriosis Anterior rectal wall: No rectal wall involvement Uterosacral ligament: No thickening to suggest endometriosis Rectovaginal space / septum: Normal Additional bowel lesions present? 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 History LMP: 07/08/2023 (Exact Date), Having periods Age at Menarche: 14 Age at First : 27 Age at Menopause: Business Support Specialist History Comments: Sexual Activity: Never; No partner data on record Contraception: Pill Past Obstetrical History: OB History T0 L1 SAB0 IAB0 Ectopic0 Multiple0 Live Births0 Past Medical History: PAST MEDICAL HISTORY Diagnosis Date Endometriosis HTN (hypertension) PONV (postoperative nausea and vomiting) Past Surgical History: PAST SURGICAL HISTORY Procedure Laterality Date APPENDECTOMY 2016 COLONOSCOPY COLONOSCOPY 10/25/2020 repeat 5 years PAST SURGICAL HISTORY OF 02/2019; 08/2020 laparoscopy for endometriosis Family History: FAMILY HISTORY Problem Relation Age of Onset Cancer Father Hypertension Maternal Grandfather Anesthesia Problems No Family History Blood Clots No Family History Clotting Disorder No Family History Social History: Social History Tobacco Use Smoking status: Never Smokeless tobacco: Never Substance Use Topics Alcohol use: Yes Comment: maybe a few drinks a month Drug use: No Current Outpatient Medications Medication Sig elagolix (ORILISSA) 150 mg tablet Take 1 tablet (150 mg) by mouth once daily. norethindrone (AYGESTIN) 5 mg tablet Take 2 tablets by mouth once daily. iv contrast (will be provided with radiology test) MRI Female Pelvis Inject, intravenously, once for 1 dose. No IV access, insert saline lock prior to the beginning of sedation, infusion, injection of imaging exam. Discontinue saline lock post exam. If Pt has a central line or IVAD, may access for administration according to line specific nursing protocol. Once exam is complete flush line and de-access according to line specific nursing protocol in the MR contrast administration guidelines link. Surgical Lubricant Jelly gel For MRI Female Pelvis, MRI department to provide. Administer intra-vaginal Surgilube immediately prior the MRI procedure (total amount to patient toleranace). cyclobenzaprine (FLEXERIL) 5 mg tablet Take 1 tablet by mouth at bedtime as needed. metoprolol succinate ER (TOPROL XL) 25 mg 24 hr tablet norethindrone (AYGESTIN) 5 mg tablet Take 1 tablet by mouth once daily. FLUoxetine (PROZAC) 10 mg capsule Take 10 mg by mouth once daily. (Patient not taking: Reported on 05/01/2023) No current facility-administered medications for this visit. Allergies As of Date: 07/16/2023 (No Known Allergies) Fully Assessed 07/16/2023 REVIEW OF SYSTEMS: POSITIVES IN BOLD Constitutional: Denies fever or chills GI: Denies abdominal pain, nausea, vomiting, bloody stools or diarrhea : Denies dysuria Psychiatric: Denies depression or anxiety PHYSICAL EXAMINATION: Vital Signs: 07/16/23 1115 BP: (more content not included)...[facility]07-18-2023 NoteHNO ID: [id number] Author: Rosio Malcolm RT(R) Service: ? Author Type: Stave Inspector Type: Progress Notes Filed: 06/12/2023 4:32 PM Note Text: Radiology Service Progress Note PATIENT NAME: Driss Cope DATE OF SERVICE: June 12, 2023 TIME: 4:32 PM PATIENT IDENTITY VERIFICATION COMPLETED USING TWO (2) IDENTIFIERS: Name and Date of confirmed by patient verbally. FALL SCREENING: Has the patient had 2 falls in the last year or 1 fall with injury or currently using an Ambulatory Assistive Device (Walker, Cane, Wheelchair, Crutches, etc.)? No PATIENT GENDER DATA: Female. status: : No status: NO. PATIENT RELEVANT IMPLANT DATA REVIEWED: Yes RADIOLOGY DEPARTMENT: MR; Exam(s) Completed: Body: Female Pelvis PERIPHERAL IV DATA: Site assessment: Clean,Dry and Intact, Site disposition Discontinued SIGNED BY: RT Claudia(R) June 12, 2023 4:32 [facility]07-18-2023 NoteHNO ID: [id number] Author: Boo Singh RN Service: Nursing Author Type: Registered Nurse Type: Progress Notes Filed: 06/12/2023 1:49 PM Note Text: Radiology Service Progress Note DATE OF SERVICE: June 12, 2023 TIME: 1:43 PM PATIENT WEIGHT: 140 LBS PATIENT IDENTITY VERIFICATION COMPLETED USING TWO (2) STANDARD IDENTIFIERS: Name and Date of confirmed by patient verbally. FALL SCREENING: Has the patient had 2 falls in the last year or 1 fall with injury or currently using an Ambulatory Assistive Device (Walker, Cane, Wheelchair, Crutches, etc.)? No PATIENT GENDER DATA: Female. status: : No status: NO. ALLERGIES: Reviewed and unchanged CONTRAST ALLERGY: No EXAM: MRI - CONTRAST TYPE: GROUP II IV SITE: Ambulatory: A peripheral IV was started in the Right antecubital site with a Angio cath: 22 gauge. IV SITE APPEARANCE: Clean,Dry and Intact SIGNATURE: Boo Singh RN PATIENT NAME: Driss Cope DATE: June 12, 2023 TIME: 1:[facility] History of Present illness Narrative* Boo Singh RN - 06/12/2023 1:30 PM EDT Radiology Service Progress Note DATE OF SERVICE: June 12, 2023 TIME: 1:43 PM PATIENT WEIGHT: 140 LBS PATIENT IDENTITY VERIFICATION COMPLETED USING TWO (2) STANDARD IDENTIFIERS: Name and Date of confirmed by patient verbally. FALL SCREENING: Has the patient had 2 falls in the last year or 1 fall with injury or currently using an Ambulatory Assistive Device (Walker, Cane, Wheelchair, Crutches, etc.)? No PATIENT GENDER DATA: Female. status: : No status: NO. ALLERGIES: Reviewed and unchanged CONTRAST ALLERGY: No EXAM: MRI - CONTRAST TYPE: GROUP II IV SITE: Ambulatory: A peripheral IV was started in the Right antecubital site with a Angio cath: 22 gauge. IV SITE APPEARANCE: Clean,Dry and Intact SIGNATURE: Boo Singh RN PATIENT NAME: Driss Cope DATE: June 12, 2023 TIME: 1:43 PM * Rosio Malcolm, RT(R) - 06/12/2023 1:30 PM EDT Radiology Service Progress Note PATIENT NAME: Driss Cope DATE OF SERVICE: June 12, 2023 TIME: 4:32 PM PATIENT IDENTITY VERIFICATION COMPLETED USING TWO (2) IDENTIFIERS: Name and Date of confirmedby patient verbally. FALL SCREENING: Has the patient had 2 falls in the last year or 1 fall with injury or currently using an Ambulatory Assistive Device (Walker, Cane, Wheelchair, Crutches, etc.)? No PATIENT GENDER DATA: Female. status: : No status: NO. PATIENT RELEVANT IMPLANT DATA REVIEWED: Yes RADIOLOGY DEPARTMENT: MR; Exam(s) Completed: Body: Female Pelvis PERIPHERAL IV DATA: Site assessment: Clean,Dry and Intact, Site disposition Discontinued SIGNED BY: RT Claudia(R) June 12, 2023 4:32 PM documented in this encounterSt. [facility] NoteHNO ID: [id number] Author: Charlene Rodriguez, DO Service: ? Author Type: Physician Type: Progress Notes Filed: 05/21/2023 10:15 AM Note Text: [facility] SECTION FOR MINIMALLY INVASIVE GYNECOLOGIC SURGERY OUTPATIENT VISIT DATE 05/17/2023 OUTPATIENT VISIT TYPE FUV - zoom virtual visit CHIEF COMPLAINT: Endometriosis, pelvic pain HISTORY OF PRESENT ILLNESS: Driss Cope is a pleasant 28 year old female who presents for follow up visit. 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 LMP: 04/22/2023 (Exact Date), Having periods Age at Menarche: 14 Age at First : 27 Age at Menopause: Business Support Specialist History Comments: Sexual Activity: Never; No partner data on record Contraception: Pill Past Obstetrical History: OB History T0 L1 SAB0 IAB0 Ectopic0 Multiple0 Live Births0 Past Medical History: PAST MEDICAL HISTORY Diagnosis Date Endometriosis HTN (hypertension) PONV (postoperative nausea and vomiting) Past Surgical History: PAST SURGICAL HISTORY Procedure Laterality Date APPENDECTOMY 2016 COLONOSCOPY COLONOSCOPY 10/25/2020 repeat 5 years PAST SURGICAL HISTORY OF 02/2019; 08/2020 laparoscopy for endometriosis Family History: FAMILY HISTORY Problem Relation Age of Onset Cancer Father Hypertension Maternal Grandfather Anesthesia Problems No Family History Blood Clots No Family History Clotting Disorder No Family History Social History: Social History Tobacco Use Smoking status: Never Smokeless tobacco: Never Substance Use Topics Alcohol use: Yes Comment: maybe a few drinks a month Drug use: No Current Outpatient Medications Medication Sig cyclobenzaprine (FLEXERIL) 5 mg tablet Take 1 tablet by mouth at bedtime as needed. metoprolol succinate ER (TOPROL XL) 25 mg 24 hr tablet norethindrone (AYGESTIN) 5 mg tablet Take 1 tablet by mouth once daily. naproxen (NAPROSYN) 500 mg tablet Take 1 tablet by mouth twice daily as needed. for pain. Take with food. FLUoxetine (PROZAC) 10 mg capsule Take 10 mg by mouth once daily. (Patient not taking: Reported on 05/01/2023) No current facility-administered medications for this visit. Allergies As of Date: 05/17/2023 (No Known Allergies) Fully Assessed 05/09/2023 REVIEW OF SYSTEMS: POSITIVES IN BOLD Constitutional: Denies fever or chills GI: Denies abdominal pain, nausea, vomiting, bloody stools or diarrhea : Denies dysuria Psychiatric: Denies depression or anxiety PHYSICAL EXAMINATION: Vital Signs: There were no vitals filed for this visit. There is no height or weight on file to calculate BMI. General appearance: Well appearing, alert, in no acute distress, well-hydrated, well nourished. Skin: Skin color, texture, turgor normal, no suspicious rashes or lesions IMPRESSION: Ms. Cope is a 28 year old female Endometriosis: Ordered pelvic MRI to evaluate for Deep endometriosis. Discussed increasing aygestin to 10 mg vs adding Orilissa 150 mg daily. Patient desires to increase aygestin. She will follow up after pelvic MRI. If pain worsens, discussed possible laparoscopy. All questions answered. Written and verbal health teaching given to patient, patient verbalizes understanding and agrees with treatment plan. Charlene Rodriguez DO Tt: [facility] History of Present illness Narrative* Charlene Rodriguez DO - 05/17/2023 1:05 PM EDT Images from the original note were not included. [facility] SECTION FOR MINIMALLY INVASIVE GYNECOLOGIC SURGERY OUTPATIENT VISIT DATE 05/17/2023 OUTPATIENT VISIT TYPE FUV - zoom virtual visit CHIEF COMPLAINT: Endometriosis, pelvic pain HISTORY OF PRESENT ILLNESS: Driss Cope is a pleasant 28 year old female who presents for follow up visit. 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 LMP: 04/22/2023 (Exact Date), Having periods Age at Menarche: 14 Age at First : 27 Age at Menopause: Business Support Specialist History Comments: Sexual Activity: Never; No partner data on record Contraception: Pill Past Obstetrical History: OB History T0 L1 SAB0 IAB0 Ectopic0 Multiple0 Live Births0 Past Medical History: PAST MEDICAL HISTORY Diagnosis Date Endometriosis HTN (hypertension) PONV (postoperative nausea and vomiting) Past Surgical History: PAST SURGICAL HISTORY Procedure Laterality Date APPENDECTOMY 2016 COLONOSCOPY COLONOSCOPY 10/25/2020 repeat 5 years PAST SURGICAL HISTORY OF 02/2019; 08/2020 laparoscopy for endometriosis Family History: FAMILY HISTORY Problem Relation Age of Onset Cancer Father Hypertension Maternal Grandfather Anesthesia Problems No Family History Blood Clots No Family History Clotting Disorder No Family History Social History: Social History Tobacco Use Smoking status: Never Smokeless tobacco: Never Substance Use Topics Alcohol use: Yes Comment: maybe a few drinks a month Drug use: No Current Outpatient Medications Medication Sig cyclobenzaprine (FLEXERIL) 5 mg tablet Take 1 tablet by mouth at bedtime as needed. metoprolol succinate ER (TOPROL XL) 25 mg 24 hr tablet norethindrone (AYGESTIN) 5 mg tablet Take 1 tablet by mouth once daily. naproxen (NAPROSYN) 500 mg tablet Take 1 tablet by mouth twice daily as needed. for pain. Take withfood. FLUoxetine (PROZAC) 10 mg capsule Take 10 mg by mouth once daily. (Patient not taking: Reported on 05/01/2023) No current facility-administered medications for this visit. Allergies As of Date: 05/17/2023 (No Known Allergies) Fully Assessed 05/09/2023 REVIEW OF SYSTEMS: POSITIVES IN BOLD Constitutional: Denies fever or chills GI: Denies abdominal pain, nausea, vomiting, bloody stools or diarrhea : Denies dysuria Psychiatric: Denies depression or anxiety PHYSICAL EXAMINATION: Vital Signs: There were no vitals filed for this visit. There is no height or weight on file to calculate BMI. General appearance: Well appearing, alert, in no acute distress, well-hydrated, well nourished. Skin: Skin color, texture, turgor normal, no suspicious rashes or lesions IMPRESSION: Ms. Cope is a 28 year old female Endometriosis: Ordered pelvic MRI to evaluate for Deep endometriosis. Discussed increasing aygestinto 10 mg vs adding Orilissa 150 mg daily. Patient desires to increase aygestin. She will follow up after pelvic MRI. If pain worsens, discussed possible laparoscopy. All questions answered. Written and verbal health teaching given to patient, patient verbalizes understanding and agrees with treatment plan. Charlene Rodriguez DO Tt: 20 minutes documented in this encounterSt. [facility]06-16-2023 Miscellaneous Notes* Telephone Encounter - Christa Suárez RN - 05/11/2023 4:19 PM EDT Reports vaginal bleeding, using panty liners, changing a few times a day, not severe. Biggest complaint is cramping. Has had 3 periods of bleeding recently - 04/22/2023 LMP, last a few days, 05/04-05/10 bleeding again 05/11/2023 started again today. Takes aygestin 5mg daily. She did not crop picker flexeril. Encourage to crop picker the flexeril as this will help with the cramping. Reviewed red flag bleeding symptoms that require trip to ER (soaking greater than one overnight padper hour, chest pain, shortness of breath, fatigue, palpitations).. Advised keep appt. Gives verbal understanding. Appointments for Next 60 Days Date Time Provider Location Dept Phone 05/17/2023 1:00 PM [facility]LEN[facility]IGUE[facility] [phone] Christa Suárez RN * Telephone Encounter - Tawana Barragan - 05/11/2023 1:19 PM EDT Reason for call: other - Vaginal bleeding Provider name: Dr Rodriguez Additional comments: patient having more vaginal bleeding and concerned she is getting worse. Recommendation: routed to nurse triage pool documented in this encounterSt. [facility]06-[facility]-2023 NoteHNO ID: [id number] Author: Srinivasa Downs APRN.ANA LAURA Service: ? Author Type: Nurse Practitioner Type: Progress Notes Filed: 05/09/2023 11:46 AM Note Text: Driss Cope is a 28 year old female who presents for problem visit for pain HPI: Pain is week before period and week of period. Worse on her period for every day she's bleeding Urinary - No symptoms GI - Always constipated. No meds [place] - painful always Pain is on left side and goes to the back. Whole lower back. Sometimes on right but not very often. No concerns No falls, car accidents, scoliosis. No trauma history Endo. 2 lap - 2020 - pain improved after surgery In the past Aygestin had helped No Pelvic floor physical therapy. Dr Rodriguez recommend but hasn't been able to go. Tore with delivery but doesn't think it was bad. Here with a friend and her baby. 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 History LMP: 03/26/2023 (Approximate), Having periods Age at Menarche: Age at First : Age at Menopause: Business Support Specialist History Comments: Sexual Activity: Never; No partner data on record Contraception: Pill PAST MEDICAL HISTORY Diagnosis Date - HTN (hypertension) - PONV (postoperative nausea and vomiting) PAST SURGICAL HISTORY Procedure Laterality Date - APPENDECTOMY 2015 - COLONOSCOPY - COLONOSCOPY 10/25/2020 repeat 5 years - PAST SURGICAL HISTORY OF 02/2019; 08/2020 laparoscopy for endometriosis FAMILY HISTORY Problem Relation Age of Onset - Cancer Father - Hypertension Maternal Grandfather - Anesthesia Problems No Family History - Blood Clots No Family History - Clotting Disorder No Family History Social History Tobacco Use - Smoking status: Never - Smokeless tobacco: Never Substance Use Topics - Alcohol use: Yes Comment: maybe a few drinks a month - Drug use: No Current Outpatient Medications Medication Sig - metoprolol succinate ER (TOPROL XL) 25 mg 24 hr tablet - norethindrone (AYGESTIN) 5 mg tablet Take 1 tablet by mouth once daily. - naproxen (NAPROSYN) 500 mg tablet Take 1 tablet by mouth twice daily as needed. for pain. Take with food. - FLUoxetine (PROZAC) 10 mg capsule Take 10 mg by mouth once daily. No current facility-administered medications for this visit. Allergies As of Date: 05/01/2023 (No Known Allergies) Fully Assessed 04/11/2023 REVIEW OF SYSTEMS See HPI EXAM: BP 148/64 Ht 5' 2 (1.58m) Wt 143 lb (64.9kg) LMP 04/22/2023 BMI 26.15 kg/(m2). GENERAL: pleasant, female in no apparent distress HEENT: Normocephalic and atraumatic NECK: Supple and full range of motion DERMATOLOGY: BREAST: deferred CHEST: Normal inspiratory effort MWDPAINEXAM Spine tenderness negative SI joint nontender Pubic symphysis tenderness negative Pubic bones negative Abdominal tenderness left side Abdominal myofacial trigger points - equivocal Diastasis recti noted on exam Vaginal Vestibular tenderness negative Rectal tenderness negative, stool noted on exam Bladder base tenderness negative Uterus nontender, mobile Pelvic Floor Musculature - tender and high tone bilaterally RV exam - deferred NEURO: alert and oriented x3,exam grossly non-focal EXTREMITIES: normal ASSESSMENT AND PLAN: Encounter Diagnosis ICD-10-CM 1. Chronic pelvic pain in female R10.2 cyclobenzaprine (FLEXERIL) 5 mg tablet G89.29 CONSULT TO PHYSICAL THERAPY 2. Constipation, unspecified constipation type K59.00 CONSULT TO PHYSICAL THERAPY 3. High-tone pelvic floor dysfunction N94.89 CONSULT TO PHYSICAL THERAPY 4. Diastasis of rectus abdominis M62.08 CONSULT TO PHYSICAL THERAPY 5. Dysmenorrhea N94.6 cyclobenzaprine (FLEXERIL) 5 mg tablet CONSULT TO PHYSICAL THERAPY 6. Other specified dyspareunia N94.19 CONSULT TO PHYSICAL THERAPY Pelvic floor physical therapy - or can go locally [facility] Trial flexeril at bedtime Can consider Baclofen suppositories Continue Norethindrone - can take up to 3 months for it to stop periods, take at same time every day Relaxation techniques Srinivasa Downs APRN.CNP Medical Decision Making: Problems: Moderate: New problem with uncertain prognosis Data: Unique source(s) for external note(s) reviewed: 1 Unique test result(s) reviewed: 1 Risk: Moderate: Drug management Medical Decision Making Level: 4 - [facility]erateSelect [facility] [place] Instructions* Patient Instructions* Srinivasa Downs APRN.CNP - 05/01/2023 11:47 AM EDT Plan Pelvic floor physical therapy - or can go locally [facility] Trial flexeril at bedtime Can consider Baclofen suppositories - let me know if you want to trial after you go to PT Continue Norethindrone - can take up to 3 months for it to stop periods, take at same time every day Relaxation techniques Srinivasa Downs APRN.ANA LAURA Relaxation techniques for pain flares: Heating pads Stretching Hot bath (can add Epsom salts or soothing scents (caution if you have been diagnosed with vulvodynia in the past) Non-narcotic pain medications: Tylenol and Ibuprofen alternating Muscle relaxers*: Tizanidine, Flexeril, Baclofen suppositories, Valium suppositories Mindfulness/meditation/relaxation techniques Massage therapy Yoga Distraction Exercise, slow walks * May cause drowsiness, so caution with driving, performing tasks that require full attention Caution do not keep pad or bottle on >30 minutes, and do not heat too hot for risk of gaines and/or temporary or permanent skin changes. [email or web address] Pelvic Floor Dysfunction (PFD) The pelvic floor is made up of the bony pelvis (hip bones) together with different layers of muscles, fascia, and ligaments. The pelvic floor acts like a hammock to support the pelvic organs including the uterus, bladder, and rectum. If the muscles become overactive, strained or uncoordinated, theymay cause pain in the pelvis. This pain may lead the muscles to not contract, relax, or work together. This in turn can lead to shifting of your bony pelvis with subsequent pain in your lower back, hips, knees, or ankles. Symptoms Symptoms related to PFD may include pain of the lower abdomen and pelvic region, a sensation of vaginal heaviness or pressure, pain with vaginal penetration, and low back pain that cannot be explained by other reasons. PFD can also impact bladder and bowel function. Bladder symptoms may include urinary urgency and frequency, feeling of incomplete emptying, intermittent urinary stream or the need to strain, and urinary incontinence (leakage). Bowel symptoms may include constipation, pain with bowel movements, frequent bowel movements and fecal incontinence (leakage of stool.) Symptoms of PFD tend to develop slowly and worsen over time. Main causes of PFD While the cause of PFD is not always known contributing factors may include , vaginal delivery, pelvic trauma, pelvic surgery and obesity. PFD is also frequently found alongside pelvic diseases such as endometriosis, bladder pain syndrome, irritable bowel syndrome and vulvar pain. PFD may also arise due to repeated straining (such as with bowel movements) leading to poor coordination of the pelvic floor muscles. The pelvic floor muscles may also be involved in compensating for other musculoskeletal conditions, such as low back or hip pain. Treatment Physical Therapy is performed by a physical therapist who has been specifically trained in pelvic health. The physical therapist will perform a complete initial evaluation and, together with the patient, will establish goals and develop an individualized treatment plan. The treatment plan may include patient education, manual therapy, therapeutic exercise, postural training, breathing exercises, n euromuscular reeducation (teaching how to improve pelvic floor muscle control including relaxation,contraction, and coordination), biofeedback, and home exercise program. Modalities such as cold laser, interferential current, electrical stimulation, ultrasound, heat, and ice may also be used. Medications in the form of muscle relaxants or nerve pain medicines can be given to relax the pelvic muscles, desensitize the nervous system, and help the patient tolerate physical therapy. Trigger point injections are injections placed directly in the dysfunctional muscles to control pain, treat inflammation, and reduce spasm. Injections may include a numbing agent, a steroid, or even botulinum toxin. PFD often requires a combination of treatments in addition to physical therapy. In patients with chronic pain, other interventions such as stress control, lifestyle modification, cognitive behavioral therapy (CBT), relationship therapy, meditation, yoga, and acupuncture may be used to reduce pain and improve function. This information is from the international pelvic pain society ([email or web address].org) documented in this encounterSt. [facility]06-[facility]-20[facility] History of Present illness Narrative* Srinivasa Downs APRN.ACCOUNT INSTALLATION SPECIALIST - 05/01/2023 10:30 AM EDT Driss Cope is a 28 year old female who presents for problem visit for pain HPI: Pain is week before period and week of period. Worse on her period for every day she's bleeding Urinary - No symptoms GI - Always constipated. No meds [place] - painful always Pain is on left side and goes to the back. Whole lower back. Sometimes on right but not very often. No concerns No falls, car accidents, scoliosis. No trauma history Endo. 2 lap - 2020 - pain improved after surgery In the past Aygestin had helped No Pelvic floor physical therapy. Dr Rodriguez recommend but hasn't been able to go. Tore with delivery but doesn't think it was bad. Here with a friend and her baby. 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 History LMP: 03/26/2023 (Approximate), Having periods Age at Menarche: Age at First : Age at Menopause: Business Support Specialist History Comments: Sexual Activity: Never; No partner data on record Contraception: Pill PAST MEDICAL HISTORY Diagnosis Date HTN (hypertension) PONV (postoperative nausea and vomiting) PAST SURGICAL HISTORY Procedure Laterality Date APPENDECTOMY 2016 COLONOSCOPY COLONOSCOPY 10/25/2020 repeat 5 years PAST SURGICAL HISTORY OF 02/2019; 08/2020 laparoscopy for endometriosis FAMILY HISTORY Problem Relation Age of Onset Cancer Father Hypertension Maternal Grandfather Anesthesia Problems No Family History Blood Clots No Family History Clotting Disorder No Family History Social History Tobacco Use Smoking status: Never Smokeless tobacco: Never Substance Use Topics Alcohol use: Yes Comment: maybe a few drinks a month Drug use: No Current Outpatient Medications Medication Sig metoprolol succinate ER (TOPROL XL) 25 mg 24 hr tablet norethindrone (AYGESTIN) 5 mg tablet Take 1 tablet by mouth once daily. naproxen (NAPROSYN) 500 mg tablet Take 1 tablet by mouth twice daily as needed. for pain. Take withfood. FLUoxetine (PROZAC) 10 mg capsule Take 10 mg by mouth once daily. No current facility-administered medications for this visit. Allergies As of Date: 05/01/2023 (No Known Allergies) Fully Assessed 04/11/2023 REVIEW OF SYSTEMS See HPI EXAM: BP 148/64 Ht 5' 2 (1.58m) Wt 143 lb (64.9kg) LMP 04/22/2023 BMI 26.15 kg/(m^2). GENERAL: pleasant, female in no apparent distress HEENT: Normocephalic and atraumatic NECK: Supple and full range of motion DERMATOLOGY: BREAST: deferred CHEST: Normal inspiratory effort MWDPAINEXAM Spine tenderness negative SI joint nontender Pubic symphysis tenderness negative Pubic bones negative Abdominal tenderness left side Abdominal myofacial trigger points - equivocal Diastasis recti noted on exam Vaginal Vestibular tenderness negative Rectal tenderness negative, stool noted on exam Bladder base tenderness negative Uterus nontender, mobile Pelvic Floor Musculature - tender and high tone bilaterally RV exam - deferred NEURO: alert and oriented x3,exam grossly non-focal EXTREMITIES: normal ASSESSMENT AND PLAN: Encounter Diagnosis ICD-10-CM 1. Chronic pelvic pain in female R10.2 cyclobenzaprine (FLEXERIL) 5 mg tablet G89.29 CONSULT TO PHYSICAL THERAPY 2. Constipation, unspecified constipation type K59.00 CONSULT TO PHYSICAL THERAPY 3. High-tone pelvic floor dysfunction N94.89 CONSULT TO PHYSICAL THERAPY 4. Diastasis of rectus abdominis M62.08 CONSULT TO PHYSICAL THERAPY 5. Dysmenorrhea N94.6 cyclobenzaprine (FLEXERIL) 5 mg tablet CONSULT TO PHYSICAL THERAPY 6. Other specified dyspareunia N94.19 CONSULT TO PHYSICAL THERAPY Pelvic floor physical therapy - or can go locally [facility] Trial flexeril at bedtime Can consider Baclofen suppositories Continue Norethindrone - can take up to 3 months for it to stop periods, take at same time every day Relaxation techniques Srinivasa Downs APRN.CNP Medical Decision Making: Problems: Moderate: New problem with uncertain prognosis Data: Unique source(s) for external note(s) reviewed: 1 Unique test result(s) reviewed: 1 Risk: Moderate: Drug management Medical Decision Making Level: 4 - Moderate documented in this [facility] Miscellaneous Notes* Telephone Encounter - Marilee Valdez APRN.CNP - 04/25/2023 3:48 PM EDT She has 3 month follow up scheduled with Dr. Rodriguez in June. Recommend VV with Srinivasa Downs CNP to discuss pain management strategies. She can consider calling for a sooner follow up with Dr. Rodriguez if she desires. Relaxation techniques for pain flares: Heating pads Stretching Hot bath (can add Epsom salts or soothing scents (caution if you have been diagnosed with vulvodynia in the past) Non-narcotic pain medications: Tylenol and Ibuprofen alternating Mindfulness/meditation/relaxation techniques Massage therapy Yoga Distraction Exercise, slow walks * May cause drowsiness, so caution with driving, performing tasks that require full attention Caution do not keep pad or bottle on >30 minutes, and do not heat too hot for risk of gaines and/or temporary or permanent skin changes. Marilee Valdez APRN.ANA LAURA April 25, 2023 3:49 PM * Telephone Encounter - Lucila Foss RN - 04/25/2023 2:48 PM EDT Spoke to pt for clarification Verified name/ Reports severe menstrual cramps - worsening since January Cramps across pelvic, low back, mostly left pelvic Had to leave work Sunday due to pain No relief since starting Norethindrone 04/11/23 No relief with Naprosyn, Tylenol, or Ibuprofen LV 04/11/23 IMPRESSION: Ms. Cope is a 28 year old female who presents today with endometriosis Endometriosis: reviewed history, etiology, diagnosis and management options. Patient did well on norethindrone. Rx'd norethindrone 5 mg daily. Rtc in 3 months. Lucila Foss RN documented in this encounterSt. [facility]23 NoteHNO ID: [id number] Author: Alena Tracy Service: ? Author Type: ? Type: Progress Notes Filed: 04/25/2023 11:41 AM Note Text: Pt calling because still having terribly painful periods. Had to leave work. Please call [phone] NoteHNO ID: [id number] Author: Charlene Rodriguez DO Service: ? Author Type: Physician Type: Progress Notes Filed: 04/11/2023 8:18 PM Note Text: [facility] SECTION FOR MINIMALLY INVASIVE GYNECOLOGIC SURGERY OUTPATIENT VISIT DATE 04/11/2023 OUTPATIENT VISIT TYPE NEW PRIMARY CARE PHYSICIAN: Cruz Rodríguez [address] [place] [address] REFERRING PHYSICIAN: Self Patient is a former [facility] patient with confirmed endometriosis. CHIEF COMPLAINT: Menstrual Problem HISTORY OF PRESENT ILLNESS: Driss Cope is a pleasant 28 year old female who presents for evaluation of endometriosis. 2020 - diagnostic laparoscopy, confirmed endometriosis at [facility] No issues getting : nov 30, 2022 - no complications - but had heavy bleeding and had dANDC 12/30/2022 due to retained POC Since january, she has had pain with menses - feels like endometriosis. No current contraception. Not . 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 LMP: 03/26/2023 (Approximate), Having periods Age at Menarche: Age at First : Age at Menopause: Business Support Specialist History Comments: Sexual Activity: Never; No partner data on record Contraception: Pill Past Obstetrical History: OB History T0 L0 SAB0 IAB0 Ectopic0 Multiple0 Live Births0 Past Medical History: PAST MEDICAL HISTORY Diagnosis Date HTN (hypertension) PONV (postoperative nausea and vomiting) Past Surgical History: PAST SURGICAL HISTORY Procedure Laterality Date APPENDECTOMY 2016 COLONOSCOPY COLONOSCOPY 10/25/2020 repeat 5 years PAST SURGICAL HISTORY OF 02/2019; 08/2020 laparoscopy for endometriosis Family History: FAMILY HISTORY Problem Relation Age of Onset Cancer Father Hypertension Maternal Grandfather Anesthesia Problems No Family History Blood Clots No Family History Clotting Disorder No Family History Social History: Social History Tobacco Use Smoking status: Never Smokeless tobacco: Never Substance Use Topics Alcohol use: Yes Comment: maybe a few drinks a month Drug use: No Current Outpatient Medications Medication Sig metoprolol succinate ER (TOPROL XL) 25 mg 24 hr tablet norethindrone (AYGESTIN) 5 mg tablet Take 1 tablet by mouth once daily. naproxen (NAPROSYN) 500 mg tablet Take 1 tablet by mouth twice daily as needed. for pain. Take with food. FLUoxetine (PROZAC) 10 mg capsule Take 10 mg by mouth once daily. No current facility-administered medications for this visit. Allergies As of Date: 04/11/2023 (No Known Allergies) Fully Assessed 04/11/2023 REVIEW OF SYSTEMS: POSITIVES IN BOLD Constitutional: Denies fever or chills GI: Denies abdominal pain, nausea, vomiting, bloody stools or diarrhea : Denies dysuria Psychiatric: Denies depression or anxiety PHYSICAL EXAMINATION: Vital Signs: 04/11/23 1111 BP: 123/84 There is no height or weight on file to calculate BMI. General appearance: Well appearing, alert, in no acute distress, well-hydrated, well nourished. Skin: Skin color, texture, turgor normal, no suspicious rashes or lesions IMPRESSION: Ms. Cope is a 28 year old female who presents today with endometriosis Endometriosis: reviewed history, etiology, diagnosis and management options. Patient did well on norethindrone. Rx'd norethindrone 5 mg daily. Rtc in 3 months. Written and verbal health teaching given to patient, patient verbalizes understanding and agrees with treatment plan. Charlene Rodriguez, [facility]03-08-2023 Hospital Discharge instructions Patient Education 01/31/2023 18:59:59 Flank Pain, Adult Flank Pain, Adult Flank pain is pain that is located on the side of the body between the upper abdomen and the back. This area is called the flank. The pain may occur over a short period of time (acute), or it may be long-term or recurring (chronic). It may be mild or severe. Flank pain can be caused by many things,including: Muscle soreness or injury. Kidney stones or kidney disease. Stress. A disease of the spine (vertebral disk disease). A lung infection (pneumonia). Fluid around the lungs (pulmonary edema). A skin rash caused by the chickenpox virus (shingles). Tumors that affect the back of the abdomen. Gallbladder disease. Follow these instructions at home: Drink enough fluid to keep your urine clear or pale yellow. Rest as told by your health care provider. Take osco-ick-qczhfre and prescription medicines only as told by your health care provider. Keep a journal to track what has caused your flank pain and what has made it feel better. Keep all follow-up visits as told by your health care provider. This is important. Contact a health care provider if: Your pain is not controlled with medicine. You have new symptoms. Your pain gets worse. You have a fever. Your symptoms last longer than 2 3 days. You have trouble urinating or you are urinating very frequently. Get help right away if: You have trouble breathing or you are short of breath. Your abdomen hurts or it is swollen or red. You have nausea or vomiting. You feel faint or you pass out. You have blood in your urine. Summary Flank pain is pain that is located on the side of the body between the upper abdomen and the back. The pain may occur over a short period of time (acute), or it may be long-term or recurring (chronic). It may be mild or severe. Flank pain can be caused by many things. Contact your health care provider if your symptoms get worse or they last longer than 2 3 days. This information is not intended to replace advice given to you by your health care provider. Make sure you discuss any questions you have with your health care provider. Document Released: 01/03/2007 Document Revised: 10/25/2018 Document Reviewed: 01/25/2018 [employer] Patient Education 2020 [employer]. Follow Up Care 01/31/2023 13:43:01 With:Cruz Meza Address:Unknown When:02/03/2023 18:59:31 Comments:Follow-up for evaluation of hypertension in context of known preeclampsia in the period With:CRUZ RODRÍGUEZ Address: [address] [place] [address]- Business (1) When:Within 3 Day(s) [facility] Evaluation + Plan noteExtracted from: Title:ED Note Author:Mayur Mabry PA-C e:01/31/23 Flank pain (R10.9: Unspecifi ed abdominal pain) Headache (R51.9: Headache, unspecified) Orders: CTA Chest Hepatic Function Panel [facility] Hospital Discharge instructions Patient Education 12/30/2022 13:59:51 BRIDGE DESIGN ENGINEER - Post D&C, Hysteroscopy, LEEP or Essure/Laparoscopy (Custom) Instructions post D & C, hysteroscopy, LEEP or Essure/laparoscopy You can resume all normal activities within 24 hours following surgery. For 24 hours: no driving, making any important decisions, drinking alcohol and a responsible adult should stay with you today. Please refrain from intercourse, douches, and tampons for the next two weeks. You can expect some vaginal spotting, cramps, or light bleeding for a week and up to ten days aftersurgery. This is normal. If you are soaking a pad an hour or more frequently you need to call your doctor. Your first period may not be normal, but most women resume their normal cycles within a month or two. It is helpful for your doctor if you keep a written record of your bleeding following surgery. Whenabnormal bleeding persists for 2-3 cycles, please bring the record to your doctor. Return to the office for post-operative check, and to go over any biopsy results at your scheduled appointment; usually two weeks following surgery. If you are uncertain if an appointment has been made, please call the office. CALL THE DOCTOR if you have severe pain, heavy bleeding, or a temperature of 100.5 or higher. Resume your regular home medication schedule as soon as you are eating a regular diet. You can either take the prescribed medications as directed for pain, or you can take over the counter pain medication such as Motrin, as indicated on the package for pain or cramps. PLEASE CALL FOR ANY PROBLEMS 12/30/2022 13:55:16 Post Op Patient Instructions - FT (Custom) (Custom) 12/30/2022 13:55:16 BRIDGE DESIGN ENGINEER - Post D&C, Hysteroscopy, LEEP or Essure/Laparoscopy (Custom) Instructions post D & C, hysteroscopy, LEEP or Essure/laparoscopy You can resume all normal activities within 24 hours following surgery. For 24 hours: no driving, making any important decisions, drinking alcohol and a responsible adult should stay with you today. Please refrain from intercourse, douches, and tampons for the next two weeks. You can expect some vaginal spotting, cramps, or light bleeding for a week and up to ten days aftersurgery. This is normal. If you are soaking a pad an hour or more frequently you need to call your doctor. Your first period may not be normal, but most women resume their normal cycles within a month or two. It is helpful for your doctor if you keep a written record of your bleeding following surgery. Whenabnormal bleeding persists for 2-3 cycles, please bring the record to your doctor. Return to the office for post-operative check, and to go over any biopsy results at your scheduled appointment; usually two weeks following surgery. If you are uncertain if an appointment has been made, please call the office. CALL THE DOCTOR if you have severe pain, heavy bleeding, or a temperature of 100.5 or higher. Resume your regular home medication schedule as soon as you are eating a regular diet. You can either take the prescribed medications as directed for pain, or you can take over the counter pain medication such as Motrin, as indicated on the package for pain or cramps. PLEASE CALL FOR ANY PROBLEMS Follow Up Care 12/30/2022 08:14:12 With:Cruz Meza Address: [address], [place] [address] [place] [address]- Business (1) When: Unknown Comments:follow up in 1-2 weeks With:CRUZ RODRÍGUEZ Address: [address] [place] [address]- Business (1) When:01/02/2023 09:21:18 [facility] Evaluation + Plan noteExtracted from: Title:ANES Post-operative Note Author:Art Agustin MD Date:12/30/22 Plan Transfer/Discharge: Transfer/Discharge Discharge when meets criteria ( From PACU to Ambulatory Surgery Unit, and To home ). Extracted from: Title:Gynecology Visit * Author:Nathan POP DO Date:12/30/22 Impression and Plan retained products of conception, s/p 4wks-ultrasound reviewed, discussed options with patient, conservative tx vs surgical tx, consent obtained, mmc reviewed, procedure reviewed, Extracted from: Title:ANES Pre-operative Note Author:Bryant Agustin MD Date:12/30/22 Plan [place] [employer]esthesi[employer] (ASA) physical status classification: Class II, E. Anesthetic Preoperative Plan: Anesthesia General. Extracted from: Title:ED Note Author:Lara Murphy, Edin Thomas te:12/30/22 1. Retained products of conc eption with hemorrhage (O72.2: Delayed and secondary hemorrhage) Orders: ABO/Rh ABO/Rh History Check Antibody Screen Automated Diff Basic Metabolic Panel Blood Bank ID# CBC w/ Auto Diff eGFR Extra SST Tube PT & PTT Saline Lock Insert UA With Cult Reflex US Pelvis Non-OB Complete [facility]23 NoteDepartment of Obstetrics and Gynecology Delivery Discharge Summary Admission on 11/28/2022 12:24 AM Hospital course: Driss Cope at 35w1d admitted as a transfer from [facility] for PreEwSF. She was started on Magnesium there and transported here for delivery. She has persistent severe range BP on admission acutely treated with 20 IV Labetalol. Her labor course consisted of cytotec, 60 ml chauhan bulb, pitocin, and AROM. Once complete she pushed for 1.5-2 hrs prior to . course & complications: - Uncomplicated Surgical Operations & Procedures: Date of delivery: 11/30/22 Procedure: Vaginal: Spontaneous Anesthesia: Epidural anesthesia Laceration(s): 2nd degree Delivery Complications: none EBL: 400 mL Pertinent Findings & Procedures: Information for the patient's : Francie Cope [[id number]] female 2425 g (5 lb 5.5 oz) Apgars: Information for the patient's : Francie Cope [[id number]] : : Girl Blood Type/Rh: O Antibody Screen: No results found for: LABANTI Rubella: No results found for: RUBELLAIGG Contraception: d/w pt at her 6 wk pp visit. : VTE Prophylaxis: Not Indicated Meds at Discharge: Medication List START taking these medications docusate sodium 100 MG capsule Commonly known as: Colace Take 1 capsule (100 mg) by mouth 2 times daily as needed for constipation (Vaginal Delivery) for up to 10 days. ibuprofen 600 MG tablet Take 1 tablet (600 mg) by mouth every 6 hours as needed for mild pain (1-3) for up to 10 days. NIFEdipine XL 30 MG 24 hr tablet Commonly known as: Procardia XL Take 1 tablet (30 mg) by mouth daily. Do not crush, chew, or split. Do not start before December 02, 2022. CONTINUE taking these medications Vitamin 27-0.8 MG tablet Where to Get Your Medications These medications were sent to [facility] [address] [place], [place] [id number] Hours: Sunday to Sunday 10 am to 6 pm docusate sodium 100 MG capsule ibuprofen 600 MG tablet NIFEdipine XL 30 MG 24 hr tablet Activity: Activity as tolerated Diet: Regular diet Follow-up Appointments: - visit - Blood pressure check If a patient meets criteria for hypertension, make sure the following are done prior to discharge: [] Order a blood pressure kit through [facility] (or the patient's own pharmacy on the weekend) [] Order the blood pressure log through [facility] [x] Place an office visit or telephone encounter for a 3-to-5-day blood pressure check. [] Include blood pressure dot phrase (.sumobhypertension) in discharge instructions [] Check here if the patient does NOT meet criteria for hypertension Condition on discharge: Stable Discharge to: Home Discharge date: 12/02/22 Discharge Dx: S/p PreEwSF Preeclampsia, severe, third trimester [O14.13] Patient Active Problem List Diagnosis Preeclampsia, severe, third trimester Comments: Home care, Follow-up care and control were reviewed. Signs and symptoms of mastitis and Depression were reviewed. The patient is to notify her physician if any of these occur.[facility] [id number] NotePatient: Driss Cope Procedure Summary Date: 11/29/22 Room / Location: Anesthesia Start: 1814 Anesthesia Stop: 11/30/22247 Procedure: Labor Analgesia Diagnosis: Scheduled Providers: Responsible Provider: Cruz Fung MD Anesthesia Type: epidural ASA Status: 3 Anesthesia Type: epidural Vitals Value Taken Time BP 133/89 11/30/22 0345 Temp 37.1 11/30/22 0354 Pulse 103 11/30/22 0345 Resp 17 11/30/22 0354 SpO2 99 11/30/22 0354 Anesthesia Post Evaluation Patient location during evaluation: bedside Patient participation: complete - patient participated Level of consciousness: awake and alert Pain management: satisfactory to patient Airway patency: patent Dental Injury: no Cardiovascular status: acceptable, blood pressure returned to baseline and hemodynamically stable Respiratory status: acceptable and spontaneous ventilation Hydration status: euvolemic Nausea/Vomiting: controlled No notable events documented. Patient can be discharged once all PACU criteria has been met.[facility] [id number] NotePatient: Driss Cope Procedure Summary Date: 11/29/22 Room / Location: Anesthesia Start: 1814 Anesthesia Stop: 11/30/22247 Procedure: Labor Analgesia Diagnosis: Scheduled Providers: Responsible Provider: Cruz Fung MD Anesthesia Type: epidural ASA Status: 3 Anesthesia Type: epidural Vitals Value Taken Time BP 133/89 11/30/22 0342 Temp 37.1 11/30/22 0353 Pulse 103 11/30/22 0342 Resp 17 11/30/22 0353 SpO2 99 11/30/22 0353 Vitals shown include unvalidated device data. Anesthesia Post Evaluation Patient location during evaluation: PACU Patient participation: complete - patient participated Level of consciousness: awake and alert Pain management: satisfactory to patient Multimodal analgesia pain management approach Airway patency: patent Two or more strategies used to mitigate risk of obstructive sleep apnea Cardiovascular status: acceptable and hemodynamically stable Respiratory status: acceptable Hydration status: acceptable No notable events documented. Anesthesia Post Evaluation I completed my handoff to the receiving clinician during which we: 1. Identified the patient 2. Identified the responsible provider 3. Reviewed the pertinent medical history 4. Discussed the surgical course 5. Reviewed intra-op anesthesia management and issues during anesthesia 6. Set expectations for post-procedure period 7. Allowed opportunity for questions and acknowledgement of understanding.[facility] [id number] NoteEpidural Block Time Out: 11/29/2022 6:17 PM Patient location during procedure: OB Start time: 11/29/2022 6:18 PM End time: 11/29/2022 6:45 PM Reason for block: labor analgesia Staffing Performed: PORTABLE TRACK LINE MARKER Resident/PORTABLE TRACK LINE MARKER: JAMI Yanez CRNA Preanesthetic Checklist Completed: patient identified, IV checked, site marked, risks and benefits discussed, surgical consent, monitors and equipment checked, pre-op evaluation, timeout performed, IV bolus and anesthesia consent given Block Placement Patient position: sitting Prep: ChloraPrep Sterility prep: drape, gloves, cap, hand and mask Patient monitoring: heart rate Approach: midline Location: lumbar Lumbar location: L3-L4 Epidural Loss of resistance technique: saline Guidance: landmark technique Needle Needle type: Joshua Needle gauge: 17 G Needle length: 9 cm Needle insertion depth: 5 cm Catheter type: multi-orifice Catheter size: 19 G Catheter at skin depth: 10 cm Catheter securement method: surgical tape, liquid medical adhesive and clear occlusive dressing Test dose: negative Assessment Sensory level: T10 Block outcome: pain improved Number of attempts: 1 Procedure assessment: patient tolerated procedure well with no immediate [facility] NotePatient: Driss Cope Procedure Information Date: 11/28/22 Procedure: Labor Analgesia Relevant Problems Cardio (+) Preeclampsia, severe, third trimester Clinical information reviewed: Tobacco Allergies Meds Med Hx Surg Hx Fam Hx Soc Hx Physical Exam Airway Mallampati: II TM distance: >3 FB Neck ROM: full Mouth Open: normalendotracheal tube not in place Cardiovascular - normal exam Dental Pulmonary - normal exam Abdominal - normal exam Anesthesia Plan ASA 3 epidural The patient is not a current smoker. Anesthetic plan and risks discussed with patient. Use of blood products discussed with who consented to blood products. patient is not NPO Additional [facility]sAsc[facility]01-03-2023 NoteLabor Progress Note Date: 11/28/2022 Time: 2:14 AM Subjective: Driss Cope is a 27 y.o. female at 34w6d admitted for PreEwSF Complications: PreEwSF - 20 labetalol, 30 procardia daily SVE on admission: closed GBS: []Pos []Neg [x]Unknown; collected on admisison Cytotec placed at this time. Cat I. PRINCE BRADY DO 11/28/2022 2:15 AM 2.d cytotec placed at this time. Cervix unchanged. FHT cat II for periods of minimal variability. Pt resting comfortably in bed. Per Dr. Tran, continue cytotec and defer FB until 2 cm. Cytotec x3 placed at this time. FHT cat I and reassuring. CCM. Cx:1/70/-3 FHT: Cat 1 [place]:q3-4 min A/P: 1. IOL-PreEwSF. FHT 130 baseline, with moderate variability, Accelerations present Yes, and rare late deceleration . Cervical exam unchanged. Cytotec x4 placed at this time. Patient intermittently feeling contractions. BP mild range. Cx: 1-270/-3 FHP: defer FHT: Cat I [place]: a3-4min A/P: 1. IOL-PreEwSF: FHT Category I, with modertae variability, accelerations present, and decelerations absent. BP NT largely throughout today, most recently mild range. UOP has not been documented today, day nurse did not document. Discussed with night nurse. Magnesium running for seizure prophylaxis. 2nd dose of BMZ received. Dr Keita updated. PRINCE BRADY DO 11/28/2022 7:43 PM Cx: unchanged FHP: defer FHT: Cat I [place]: q4min A/P: 1. IOL-PreEwSF: FHT Category I, with moderate variability, accelerations present, and decelerations absent. Blood pressure mild. UOP adequate. Cytotec #6 placed at this time. Magnesium running for seizure prophylaxis. PRINCE BRADY DO 11/29/2022 1:42 AM Cat I for past 4 hours. Cytotec time is up. Although discussed with Dr Keita patient will eat breakfast at this time. Plan for SVE after. PRINCE BRADY DO 11/29/2022 6:17 AM Cx:1-260/-3 FHT: Cat I [place]:q4-5mins A/P: 1. IOL-PreEwSF: Cat I FHT with baseline 130, moderate variability, spontaneous accelerations, and no decelerations. BP normotensive to low mild range since last note time. 60 ml chauhan bulb placed without difficulty. Will start low dose pitocin. Magnesium sulfate running for seizure prophylaxis, UOP adequate at 900 ml past 4 hours. CCM. Patient in pain from chauhan bulb, will give IV morphine 4 mg. FHT category I. CCM. Patient doing well, 60 ml FB remains in place and low dose pitocin at 1 ml/hr. FHT cat I and reassuring. Pt pain improved with morphine. BP overall mild range. Magnesium sulfate running at 2g per hour, UOP adequate. CCM. Chauhan bulb now out. Pitocin @ 1 ml/hr, will titrate per protocol. CCM. Cx:defer FHT: Cat I [place]:q4-6mins A/P: 1. IOL-PreEwSF: Cat I FHT with baseline 120, moderate variability, spontaneous accelerations, and no decelerations. BP normotensive to mild range since last note time. Pitocin @ 2 cc/hr, continue to titrate per protocol. Magnesium sulfate running for seizure prophylaxis, UOP 400 ml over past 4 hours. CCM. Cx:defer FHT: Cat I [place]:q4-5mins A/P: 1. IOL-PreEwSF: Cat I FHT with baseline 135, moderate variability, spontaneous accelerations, and no decelerations. BP normotensive to mild range since last note time. Pitocin @ 6 cc/hr, continue to titrate per protocol. Magnesium sulfate running for seizure prophylaxis, UOP 600 ml over past 4 hours. Will plan for AROM soon. CCM. Cx:defer FHT: Cat I [place]:irritability A/P: 1. IOL-PreEwSF: Pit @ 8 mu/min. Patient resting comfortably and only irritability tracing on toco. BP most recently mild range. On magnesium sulfate for seizure prophylaxis. UOP adequate. Continue magnesium and continue to titrate pitocin per protocol. Plan for AROM once patient rudi more regularly. Electronically signed by Cortney Velasquez DO 11/29/2022 4:21 PM Cx:/-3 FHT: Cat 1 [place]:Not tracing A/P: 1. IOL-PreEwSF. FHT 135 baseline, with moderate variability, Accelerations present Yes, and no decelerations seen . AROM at this time for moderate amount blood tinged fluid. Pitocin at 8cc/hr. Maternal BP mild range. On Magnesium for Seizure prophylaxis. Patient with adequate urinary output. CCM. Cx: defer FHP: defer FHT: Cat II [place]: not tracing well A/P: 1. IOL-PreEwSF: FHT Category II for brief period of lates vs early deceleration (more content not included)...[facility]01-[facility]2023 NoteObstetrical History and Physical CHIEF COMPLAINT: SUH HISTORY OF PRESENT ILLNESS: The patient is a 27 y.o. female at 34w6d OB History 1 Para Term AB Living SAB IAB Ectopic Multiple Live Births Patient presents with a chief complaint as above and is being admitted for PreEwSF. Denies DFM/VB/LOF/SUH/EpigastricPain/Visual changes Estimated Due Date: Estimated Date of Delivery: 01/03/23 PC-01 HARDSTOP. Current EGA is 34w6d Is this patient being delivered between 68z6q-52p3e weeks with an acceptable medical indication (obstetric, maternal, and/or )? NA: Not Applicable: This patient is being delivered outside of the PC-01 range (43i6s-16k0x) for reasons indicated in the medical record. CARE: Complications: See below PAST OB HISTORY: OB History Para Term AB Living 1 SAB IAB Ectopic Multiple Live Births # Outcome Date GA Lbr Suresh/2nd Weight Sex Delivery Anes PTL Lv 1 Current Detailed OB History G1 Current Past Medical History: Past Medical History: Diagnosis Date Endometriosis Past Surgical History: Past Surgical History: Procedure Laterality Date APPENDECTOMY Allergies: No Known Allergies Social History: Social History Socioeconomic History Marital status: Not on file Spouse name: Not on file Number of children: Not on file Years of education: Not on file Highest education level: Not on file Occupational History Not on file Tobacco Use Smoking status: Never Smokeless tobacco: Never Vaping Use Vaping Use: Never used Substance and Sexual Activity Alcohol use: Never Drug use: Never Sexual activity: Not on file Other Topics Concern Not on file Social History Narrative Not on file Social Determinants of Health Financial Resource Strain: Not on file Food Insecurity: Not on file Transportation Needs: Not on file Physical Activity: Not on file Stress: Not on file Social Connections: Not on file Intimate Partner Violence: Not on file Housing Stability: Not on file Family History: @FAMHXNH@ Medications Prior to Admission: No medications prior to admission. REVIEW OF SYSTEMS: Const: Negative HEENT: Negative Resp: Negative CVS: Negative GI: Negative : Negative MSK: Negative Breast: Negative Skin: Negative Heme/Lymph:Negative Endo: Negative Neuro: Negative Psych: Negative PHYSICAL EXAM: Vitals: 11/28/22 0045 BP: (!) 162/73 Pulse: (!) 130 Resp: 16 Temp: 36.8 ?C (98.2 ?F) General appearance: awake, alert, cooperative, no apparent distress, and appears stated age Neurologic: Awake, alert, oriented to name, place and time. Lungs: No increased work of breathing, good air exchange Abdomen: Soft, non tender, gravid, consistent with her gestational age Cervix: closed Contraction frequency: rare Labs: Pending Blood Type/Rh: No results found for: RH Group B Strep: No components found for: GRPBPCR Fetus: EFW: 5# leopolds Presentation: Vertex by U/S Pratt Score: 0 0 1 2 3 Position Posterior Mid Anterior - Consistency Firm Medium Soft - Effacement 0-30% 40-50% 60-70% 80% or > Dilation 0cm 1-2cm 3-4cm 5cm or > Station -3 -2 -1, 0 +1, +2 LABOR DELIVERY ??? SCD's ONLY (labor through ambulation) SCD's PLUS Prophylactic Anticoagulation until discharge SCD's PLUS Prophylactic Anticoagulation for 6 weeks SCD's PLUS Therapeutic Anticoagulation for 6 weeks Vaginal Delivery [] BMI ? 40 kg/m2 Delivery All patients Vaginal Delivery [] BMI ? 40 kg/m2 AND [] Antepartum hospitalization ? 72 hours within the past month Delivery 1 Major Risk Factor: [] BMI ? 35 kg/m2 [] Low Risk Thrombophilia [] PPH+RBCs, IR, or operation [] Infection+Antibiotics [] Antepartum hospitalization ? 72 hours within the past month [] PMH: Sickle Cell, SLE, Cardiac Dz, Active IBD, Active Cancer, Nephrotic Syndrome OR 2 Minor Risk Factors: [] Multiple gestation [] Age > 40 [] PPH ? 1,000cc [] (+)FMH of VTE [] Smoker [] Preeclampsia [] BMI ? 40 kg/m2 AND [] Low Risk Thrombophilia OR ANY OF THE FOLLOWING: [] High Risk Thrombophilia without prior VTE [] Low Risk Thrombophilia with (+)FMH of VTE [] Any single prior VTE ANY OF THE FOLLOWING: [] Already on LMWH/UFH [] Multiple prior VTE [] High Risk Thrombophilia with prior VTE Low Risk Thrombophilia: FVL (heterozygous), Prothrombin (heterozygous), Protein C, Protein S High Risk Thrombophilia: FVL (homozygous), Prothrombin (homozygous), FVL+Prothrombin (heterozygous), Antithrombin III, APLS ASSESSMENT AND PLAN: 1. IOL-PreEwSF Admission: Admit to L&D FHR: Category 1 Celestone: indicated and ordered Pain control plan: desires Epidural anesthesia Delivery Plan: Cytotec GBS: GBS unknown , Pen G for GBS prophylaxis LARC: declines Intrapartum SCDs: Not Indicated VTE Prophylaxis: Not Indicated (more content not included)...[facility]01-03-2023 NoteThe following Patient Education Materials have been given to the patient: [facility]01-02-2023 NotePatient: DRISS COPE Age: 27 years Sex: Female : 1995 Associated Diagnoses: None Author: Fredi DORSEY MD Basic Information /Para: Para Information: : 1 Para Term: 0 Para : 0 Para Abortions: 0 Para Livin. Chief Complaint Intermittent contractions. Interval History 27-year-old 1 with intrauterine at 34 weeks 5 days presented to the OB departmenttoday complaining of intermittent contractions. She initially denied any headache vision disturbances or epigastric pain. She was found to have elevated blood pressures in 130s to 140s over 80s and 90s. Her records are not available but she denies any problems during . She denies any relevant medical history. During my examination she complained of increasing headache. She denies vision disturbances or epigastric pain. Histories History No significant maternal complications Review of Systems Constitutional: Negative. Eye: Negative. Respiratory: Negative. Cardiovascular: Negative. Gastrointestinal: Negative. Gynecologic: Negative. Musculoskeletal: Negative. Neurologic: Negative. Health Status Current medications: None Physical Examination Reviewed Results: Vital Signs(Date Range: 11/26/2022 0:00 EST - 11/27/2022 21:03 EST) General: Alert and oriented. Eye: Pupils are equal, round and reactive to light. HENT: Normocephalic. Respiratory: Lungs are clear to auscultation. Cardiovascular: Maternal tachycardia with heart rate in 120s noted.. Gastrointestinal: Soft, Non-tender. Genitourinary: No costovertebral angle tenderness. Obstetric Exam Cervix: Cervix is closed, 50%, soft posterior. -2 station. Vertex.. Uterus: gravid. Baby: heart tones reactive. Lymphatics: No lymphadenopathy neck, axilla, groin. Musculoskeletal Normal range of motion. Neurologic: Alert, Oriented. Psychiatric: Cooperative. Review / Management Results review: Interpretation: Labs unremarkable. Condition: Stable. Impression and Plan Diagnosis 34 weeks 5 days. Preeclampsia. contractions. Maternal tachycardia.. Course: Worsening, New onset headache may be a signal of worsening symptoms of preeclampsia.. Orders I discussed this case with the maternal- medicine department at [facility] in [facility], Dr. Thea Nieves, she accepted to transfer due to preeclampsia. Plan: Magnesium sulfate per protocol, betamethasone, transfer arrangements are in progress..[facility] Center[facility] on above:Result Comment: Electronically Signed By: WILLIAN BLACKWELL, Fredi\.br\Date and Time Signed: 11/27/22 21:08 [id number] Evaluation + Plan noteExtracted from: Title:OB High Risk Antepartum Visit * Author:Fredi HOANG MD Date:11/27/22 Impression and Plan Diagnosis 34 weeks 5 days. Preeclampsia. contractions. Maternal tachycardia.. Course: Worsening, New onset headache may be a signal of worsening symptoms of preeclampsia.. Orders I discussed this case with the maternal- medicine department at [facility] in [facility], Dr. Thea Nieves, she accepted to transfer due to preeclampsia. Plan: Magnesium sulfate per protocol, betamethasone, transfer arrangements are in progress.. [facility] Evaluation + Plan noteExtracted from: Title:ED Note Author:Kumar Villagomez DO Date :07/14/22 Abdominal pain in (O26.899: Other specified related conditions, unspecified trimester) Bleeding hemorrhoid (K64.9: Unspecified hemorrhoids) Unspecified abdominal pain (R10.9: Unspecified abdominal pain) Orders: acetaminophen, 650 mg = 2 tab(s), Tab, Oral, Once, Stop date 07/14/22 6:28:00 EDT, STAT, Start date 07/14/22 6:28:00 EDT, 07/14/22 6:28:00 EDT ondansetron, 4 mg = 2 mL, Injection, IV Push, Once, Stop date 07/14/22 6:28:00 EDT, STAT, Start date 07/14/22 6:28:00 EDT, 07/14/22 6:28:00 EDT Sodium Chloride 0.9% intravenous solution, 1,000 mL, Soln-IV, IV, Once, Stop date 07/14/22 6:28:00 EDT, STAT, Start date 07/14/22 6:28:00 EDT, mL/hr, Infuse over 61, minute(s) Basic Metabolic Panel CBC w/ Auto Diff Hepatic Function Panel UA With Cult Reflex Addendum by Leon Kincaid DO on July 14, 2022 07:26:26 EDT Patient was signed out to by the prior physician I did review full work-up here in the emergency department. Patient was already seen by the OB department and sent here for further evaluation. Urinalysis does reveal some bacteria in the urine and the patient does have left-sided abdominal pain therefore given the leukocytosis associated with this patient will be covered with Keflex for possible UTI with culture pending. 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 She is provided with a note for work. Additional diagnosis: Constipation, UTI and [facility] Hospital Discharge instructions Follow Up Care 07/14/2022 06:07:36 With:Cruz Meza Address:Unknown When:07/17/2022 07:24:48 With:CRUZ RODRÍGUEZ Address: [address] [place] [address]- Business (1) When:Within 3 Day(s) [facility] Hospital Discharge instructions Follow Up Care 07/14/2022 04:40:16 With:Cruz Meza Address: [address], [facility] [address] [place] [address]- Business (1) When:07/17/2022 Comments:Appointment has already been scheduledCall Dr if fever>100.5 F, heavy bleedingCall for any problems.Call for severe abdominal painCall physician for heavy vaginal bleedingCall physician if symptoms worsenPlease call if you need to rescheduleReturn for contractions closer, longer, harderReturn ifruptured membranes or vaginal bleeding [facility]05-[facility] Evaluation + Plan note Diagnostic Tests Pending * [id number] 04/25/22 * NIGEL w/Reflex if POS 04/25/22 * Ceruloplasmin 04/25/22 * HCV Antibody RFX to Quant PCR 04/25/22 * HBV Core Ab 04/25/22 * Hepatitis B Surface Antibody 04/25/22 * Hepatitis B Surface Antigen 04/25/22 * Smooth Muscle Antibody Screen 04/25/22 [facility] Evaluation note* Encounter Date Diagnosis Assessment Notes Treatment Notes Treatment Clinical Notes March, Elevated liver function tests (ICD-10 - R79.89) LABS INDICATED ABOVE FIBROSCAN [employer] Other Evaluation note* Diagnosis Pelvic pain in female- Primary Unspecified symptom associated with female genital organs [facility] Diagnosis Chronic pelvic pain in female- Primary Unspecified symptom associated with female genital organs Constipation, unspecified constipation type High-tone pelvic floor dysfunction Other specified disorders of female genital organs Diastasis of rectus abdominis Dysmenorrhea Other specified dyspareunia [facility]* Diagnosis Endometriosis- Primary Endometriosis, site unspecified Pelvic and perineal pain Unspecified symptom associated with female genital organs [facility] Diagnosis Pelvic pain in female- Primary Unspecified symptom associated with female genital organs [facility] this [facility]* Diagnosis Pelvic pain in female- Primary Unspecified symptom associated with female genital organs [facility] Diagnosis High-tone pelvic floor dysfunction- Primary Other specified disorders of female genital organs Chronic pelvic pain in female Unspecified symptom associated with female genital organs [facility] Diagnosis Pelvic and perineal pain Unspecified symptom associated with female genital organs [facility]* Diagnosis Menorrhagia with regular cycle Pelvic pain in female Unspecified symptom associated with female genital organs Uses control documented [facility] N[facility]ative - Reported* Type Description Date Medical History headache Surgical History appendectomy Surgical History shoulder surgery Surgical History endometriosis [facility] [employer] Other History of Present illness Narrative* 26 yo presents as a follow up for endometriosis * pain worsening recently * states she is not bleeding but is having cramping and new dyspareunia * 2020 - lx excision of endo * cramping - so bad she had to leave work * end of month, beginning of month * several days * off and on * nothing helps * has tried NSAIDs * GI issues: constipation * issues: none * pelvic floor PT: no due to insurance issues * dyspareunia: yes, had prior to surgery then was doing well and now starting again * engaged x 1 year * working at [employer] in [place] [address] Work Phone: Hospital course Narrative No data available for this section [facility] No data available for this section [facility] No data available for this section [facility]Reason for visit NarrativePT HERE AT REQUEST OF DR RODRÍGUEZ FOR EVALUATION AND TREATMENT OF ELVATED LIVER FUNCTION- ( DR. SAMUEL PT), LABS FROM DR RODRÍGUEZ REVIEWED BY DR [facility] [employer] Other Summary Purpose Family History No Family History Records FoundUnknown Family Member Name Dates Details No pertinent family history: Mother(V49.89, Z78.9) Status:Active Advance Directives No Advanced Directives Records FoundNo Advanced Directives Records FoundNo Advanced Directives Records FoundNo Advanced Directives Records FoundNo Advanced Directives Records FoundNo Advanced Directives Records FoundNo Advanced Directives Records FoundNo Advanced Directives Records FoundNo Advanced Directives Records FoundNo Advanced Directives Records FoundNo Advanced Directives Records FoundNo Advanced Directives Records Found Procedure Findings Note Post Operative Note: PreOp D iagnosis: chronic pelvic pain Post-Procedure Diagnosis: endometriosis Procedure: 1. Laparoscopic excision of endometriosis 2. Bilateral ureterolysis Surgeon: Dr. Charlene Rodriguez Resident/Fellow/Other Tool Clerk: Glory Palacio Anesthesia: general I.V. Fluids: 500 mL LR Estimated Blood Loss (mL): 5 Blood Replacement: none Specimen: yes. left and right pelvic side wall peritoneum, left and right uterosacral ligament peritoneum, rectovaginal peritoneum, anterior pelvic peritoneum Complications: none Findings: see operative report Patient Returned To/Condition: PACU/Satisfactory Urine Output: 600 mL Operative Report Dictated: Dictation: not applicable - note contains Operative Report Operative Report: FINDINGS: Laparoscopic assessment of the abdomen revealed evidence endometriosis like adhesive disease, particularly in the anterior and posterior cul de sac and the bilateral uterosacral ligaments and pelvic side guidry. Normal appearing uterus, bilateral fallopian tubes an (more content not included)... 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 Reason for Referral Specialty Diagnoses / Procedures Referred By Michaela house Referred To Contact [facility] IMAGING Diagnoses Pelvic and perineal pain Procedures MRI FEMALE PELVIS WO/W IVCON MRI PELVIS W/O & W/CONTRAST MATERIAL Charlene Rodriguez, [address] [facility] [address] [place] [address] Mr Imaging Referral ID Status Reason Start Date Expiration Date Visits Requested Visits Authorized [id number] Authorized Auto-Generat ed Referral 05/17/2023 06/15/2024 1 1 Specialty Diagnoses / Procedures Referred By Michaela house Referred To Contact [facility] Diagnoses Constipation, unspecified constipation type High-tone pelvic floor dysfunction Diastasis of rectus abdominis Dysmenorrhea Other specified dyspareunia Chronic pelvic pain in female Procedures CONSULT TO PHYSICAL THERAPY PHYSICAL THERAPY EVALUATION HIGH COMPLEX 45 MINS Srinivasa Downs, CMS EXPERT.ACCOUNT INSTALLATION SPECIALIST [address] [place] [address] [facility] [address] [place] [address] Referral ID Status Reason Start Date Expiration Date Visits Requested Visits Authorized [id number] Pending Review Auto-Generat ed Referral 05/01/2023 04/30/2024 1 1 Additional Source Comments INFORMATION SOURCE (unrecogn ized section and content) DATE CREATED AUTHOR 10/26/2020 [facility] DATE CREATED AUTHOR AUTHOR'S ORGANIZ ATION 11/06/2020 [facility] DATE CREATED AUTHOR AUTHOR'S ORGANIZ ATION 12/17/[address] [facility] DATE CREATED AUTHOR AUTHOR'S ORGANIZ ATION 04/21/2021 [facility] DATE CREATED AUTHOR AUTHOR'S ORGANIZ ATION 06/05/2021 [facility] ical Center DATE CREATED AUTHOR AUTHOR'S ORGANIZ ATION 10/02/2021 [facility] DATE CREATED AUTHOR AUTHOR'S ORGANIZ ATION 02/10/2022 [facility] DATE CREATED AUTHOR AUTHOR'S ORGANIZ ATION 12/05/2022 [facility] DATE CREATED AUTHOR AUTHOR'S ORGANIZ ATION 04/05/2023 [facility] DATE CREATED AUTHOR AUTHOR'S ORGANIZ ATION 09/14/2023 [facility] DATE CREATED AUTHOR AUTHOR'S ORGANIZ ATION 12/13/2023 [facility] DATE CREATED AUTHOR AUTHOR'S ORGANIZ ATION 01/31/2024 [facility] dical Specialists EPIC Care Team (unrecognized sect ion and content) Compressor Technician Relationship Specialty Start Date End Date Cruz Rodríguez MD [address] [place] [address] PCP - General Family Medicine 12/03/14 Compressor Technician Relationship Specialty Start Date End Date Cruz Rodríguez MD [address] [place] [address] PCP - General Family Medicine 12/03/14 Compressor Technician Relationship Specialty Start Date End Date Cruz Rodríguez MD [address] [place] [address] PCP - General Family Medicine 12/03/14 Compressor Technician Relationship Specialty Start Date End Date Cruz Rodríguez MD [address] [place] [address] PCP - General Family Medicine 12/03/14 Compressor Technician Relationship Specialty Start Date End Date Cruz Rodríguez MD [address] [place] [address] PCP - General Family Medicine 12/03/14 Compressor Technician Relationship Specialty Start Date End Date Cruz Rodríguez MD [address] [place] [address] PCP - General Family Medicine 12/03/14 Compressor Technician Relationship Specialty Start Date End Date Cruz Rodríguez MD [address] [place] [address] PCP - General Family Medicine 12/03/14 Compressor Technician Relationship Specialty Start Date End Date Cruz Rodríguez MD [address] [place] [address] PCP - General Family Medicine 12/03/14 Compressor Technician Relationship Specialty Start Date End Date Cruz Rodríguez MD [address] [place] [address] PCP - General Family Medicine 12/03/14 Compressor Technician Relationship Specialty Start Date End Date Cruz Rodríguez MD [address] [place] [address] PCP - General Family Medicine 12/03/14 Compressor Technician Relationship Specialty Start Date End Date Cruz Rodríguez MD [address] [place] [address] [facility] Cruz Rodríguez MD [address] [place] [address] PCP - General Family Medicine 04/10/23 Cruz Rodríguez MD [address] [place] [address] PCP - [facility] 02/24/23 Zenobia East NP [address] [place] [address] Nurse Practitioner Family Medicine 10/05/23 Trista Thao NP [address] [place] [address] Nurse Practitioner Pulmonary Disease 10/05/23 Source Comments (unrecognize d section and content) In the event this informatio n is protected by the Federal Confidentiality of Alcohol and Drug Abuse Patient Records regulations: The Federal rules restrict any use of the information to criminally investigate or prosecute any alcohol or drug abuse patient.[facility] the event this information is protected by the Federal Confidentiality of Alcohol and Drug Abuse Patient Records regulations: The Federal rules restrict any use of the information to criminally investigate or prosecute any alcohol or drug abuse patient.[facility] the event this information is protected by the Federal Confidentiality of Alcohol and Drug Abuse Patient Records regulations: The Federal rules restrict any use of the information to criminally investigate or prosecute any alcohol or drug abuse patient.[facility] the event this information is protected by the Federal Confidentiality of Alcohol and Drug Abuse Patient Records regulations: The Federal rules restrict any use of the information to criminally investigate or prosecute any alcohol or drug abuse patient.[facility] the event this information is protected by the Federal Confidentiality of Alcohol and Drug Abuse Patient Records regulations: The Federal rules restrict any use of the information to criminally investigate or prosecute any alcohol or drug abuse patient.[facility] the event this information is protected by the Federal Confidentiality of Alcohol and Drug Abuse Patient Records regulations: The Federal rules restrict any use of the information to criminally investigate or prosecute any alcohol or drug abuse patient.[facility] Hospital[facility] the event this information is protected by the Federal Confidentiality of Alcohol and Drug Abuse Patient Records regulations: The Federal rules restrict any use of the information to criminally investigate or prosecute any alcohol or drug abuse patient.[facility] Hospital[facility] the event this information is protected by the Federal Confidentiality of Alcohol and Drug Abuse Patient Records regulations: The Federal rules restrict any use of the information to criminally investigate or prosecute any alcohol or drug abuse patient.[facility] Hospital[facility] the event this information is protected by the Federal Confidentiality of Alcohol and Drug Abuse Patient Records regulations: The Federal rules restrict any use of the information to criminally investigate or prosecute any alcohol or drug abuse patient.[facility] the event this information is protected by the Federal Confidentiality of Alcohol and Drug Abuse Patient Records regulations: The Federal rules restrict any use of the information to criminally investigate or prosecute any alcohol or drug abuse patient.[facility] Hospital[facility] the event this information is protected by the Federal Confidentiality of Alcohol and Drug Abuse Patient Records regulations: The Federal rules restrict any use of the information to criminally investigate or prosecute any alcohol or drug abuse patient.[facility] the event this information is protected by the Federal Confidentiality of Alcohol and Drug Abuse Patient Records regulations: The Federal rules restrict any use of the information to criminally investigate or prosecute any alcohol or drug abuse patient.[facility] Hospital[facility] the event this information is protected by the Federal Confidentiality of Alcohol and Drug Abuse Patient Records regulations: The Federal rules restrict any use of the information to criminally investigate or prosecute any alcohol or drug abuse patient.[facility] Reason for Visit (unrecogniz ed section and content) Reason Comments Menstrual Problem Reason Comments Vaginal Bleeding Reason Comments Endometriosis Reason Comments Insurance Authorization [place] Reason Comments Pelvic Pain Specialty Diagnoses / Procedures Referred By Contac t Referred To Contact INSULATION ESTIMATOR / GYNECOLOGY Diagnoses Painful menstrual periods Painful Periods Procedures OFFICE/OUTPATIENT ESTABLISHED SF MDM 10-19 MIN EST WHI PATIENT Srinivasa Downs, CMS EXPERT.ACCOUNT INSTALLATION SPECIALIST [address] [place] [id number] Srinivasa Downs, CMS EXPERT.ACCOUNT INSTALLATION SPECIALIST [address] [place] [id number] Referral ID Status Reason Start Date Expiration Date V isits Requested Visits Authorized [id number] Authorized 08/20/2023 11/25/2023 1 99 Reason Comments Radiology MRI Specialty Diagnoses / Procedures Referred By Contac t Referred To Contact MR IMAGING Diagnoses Pelvic and perineal pain Procedures MRI FEMALE PELVIS WO/W IVCON MRI PELVIS W/O & W/CONTRAST MATERIAL Charlene Rodriguez, DO [address] [facility] [address] [place] [address] Mr Imaging [id number] Referral ID Status Reason Start Date Expiration Date V isits Requested Visits Authorized [id number] Closed Auto-Generate d Referral 05/17/2023 06/15/2024 1 1 Reason Onset Date Comments Refill Request 01/02/2024 Reason Comments Menorrhagia Cramping with bleedi ng FOR RECORDS PERTAINING TO PATIENTS WHO ARE OR HAVE BEEN ENROLLED IN A CHEMICAL DEPENDENCY/SUBSTANCEABUSE PROGRAM, SOME INFORMATION MAY BE OMITTED. This clinical summary was aggregated from multiple sources. Caution should be exercised in using it in the provision of clinical care. This summary normalizes information from multiple sources, and as a consequence, information in this document may materially change the coding, format and clinical context of patient data. In addition, data may be omitted in some cases. CLINICAL DECISIONS SHOULD BE BASED ON THE PRIMARY CLINICAL RECORDS. [email or web address] provides no warranty or guarantee of the accuracy or completeness of information in this document.
== END 2024-02-13 14:31 | disposition home or self-care (01) ==
LOC: PST 14:30
PROVIDERS: Family Provider Family Medicine; Visit Provider Obstetrics & Gynecology
DX: Z01.810 Encounter for preprocedural cardiovascular examination (principal); R10.2 Pelvic and perineal pain
CPT/HCPCS: 93005

== ENCOUNTER 2024-02-29 06:18 | Day surgery (SDC) | payer BC, OTHER, SELFPAY ==
[2024-02-13 14:56] VITALS: BP 130/89; PULSE 91; RESP 16; TEMP 36.8; O2SAT 100; BMI 27.6
[2024-02-29] VITALS (17 sets, daily range): BP systolic 120–158; BP diastolic 80–98; PULSE 81–120; TEMP 36.6–36.9; O2SAT 93–99; BMI 27.2
--- OUTSIDE RECORDS SUMMARY | 2024-02-29 06:21 | XMS_ITS | CCD ---
Author Organization [facility] Care Team Providers Care Credit Risk Officer Name Role Phone Unavailable Unavailable OPAL LARA Referring Unavailable RODRÍGUEZ, CRUZ Primary Care Unavailable OPAL LARA Referring Unavailable RODRÍGUEZ, CRUZ Primary Care Unavailable RODRÍGUEZ, CRUZ Primary Care Physician Domo Hodges Unavailable PAOLO DIALLO Attending Unavailable KATHE RYDER Admitting Unavailable KATHE RYDER Attending Unavailable Rodríguez, Cruz Primary Care Unavailable PrintyCruz Admitting Unavailable Cruz Meza Attending Unavailable Rodríguez, [...] Unavailable Cruz Rodríguez MD Primary Care Provider Cruz Rodríguez MD Unavailable [phone] Kita MANAGER BUSINESS INFORMATION, Zenobia Unavailable Keesha MANAGER BUSINESS INFORMATION, Trista R Unavailable NATHAN POP Attending Unavailable NATHAN POP Attending Unavailable CRUZ RODRÍGUEZ Attending Unavailable NAY CHOUDHARY Attending Unavailable CRUZ RODRÍGUEZ Referring Unavailable Allergies Allergy Classification Reported Allergen(s) Allergy Type Date of Onset Reaction(s) Facility (1 source) No Known Medication Allergies; Translations: [No Known Medication Allergies] Propensity to adverse reactions (disorder) [facility] Repository Medications Current Medications Medication [...] at the same time. 0 01/15/2023 Active Davie-Linyah 0.25 -35 MG-MCG Oral for 28 Not-Taking [...] DAILY. Quantity: 1 Refills: 0 Ordered: 21-Jul-2020 Kuldip DAYCharlene Start : 21-Jul-2020 Active Comment on above: Take 1 tablet by ghada th once daily. Take 2 tablets by mo [facility] once daily. 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 Other nervous system disorders (1 source) [...] Test Name Value Interpretation Reference Range Facility [facility] 12-12-2023 [facility] Telephone ([facility]) RDISS COPE ([id number]) 1995 F Date Time Provider Department 12/12/23 CHARLENE RODRIGUEZ [facility] During your visit today, we recorded [...] Encounter Status:Closed by CHRISTA GARCES on 12/12/23 [facility] Guru 12-10-2023 CNOV Office Visit [facility] DRISS COPE ([id number]) 1995 F Date Time Provider Department 12/10/23 10:30 AM GEORGEMARCY JIMENEZRonen GRACIA During your visit today, we recorded the following information about you: Pulse Blood pressure Weight 98/minute 124/84 68.9 kg Charlene Rodriguez 12/10/2023 3:14 PM Signed [facility] SECTION FOR MINIMALLY INVASIVE GYNECOLOGIC SURGERY OUTPATIENT VISIT DATE 12/10/2023 OUTPATIENT VISIT TYPE Follow-up visit PRIMARY CARE PHYSICIAN: Cruz Rodríguez [address] [place] [address] REFERRING PHYSICIAN: Self CHIEF COMPLAINT: No chief [...] understanding and agrees with treatment plan. Charlene RodriguezDO In clinic today, pt reports she still has pain monthly but no bleeding. States Orilissa has not improved her pain. She continues to have cramping and discomfort. Has failed norethindrone and Orilissa. 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 Normal [facility] Consent for Treatmenton 08-26 Consent for Treatment [id number]#1.00T IFF Normal [facility] Discharge Instructionson Discharge Instructions [id number]#[id number] IFF Normal [facility] ED Clinical Summaryon 2022 ED Clinical Summary (Inserted Image. Poly ble to display) [place] [id number] ED Clinical Summary Person Information Name: DRISS COPE [facility] Age: 28 Years : 1995 Sex: Female Language: [place] Citizen PCP: CRUZ RODRÍGUEZ MD Marital Status: Single [...] 09/12/2023 18:18:13 09/12/2023 18:18:13 09/12/2023 18:18:13 ADDRESS: [address] [place] [id number] [facility] DOC NOTES: MEDICAL INFORMATION: Prescriptions Given: Medications [...] to Take Your Blood Pressure; Hypertension, Adult, Hvat-al-Rphn; General Headache Without Cause, Fsxa-jm-Pswd Follow up: With: Address: When: CRUZ RODRÍGUEZ [facility] [place] [id number] [facility] () In 3 days 09/15/2023 Comments: Follow-up with your primary care provider in 3 to 5 days. If symptoms worsen, do not improve, or new symptoms arise please report back to emergency department for further evaluation. DIAGNOSIS: Elevated blood pressure reading; Headache Normal [facility] ED Note-Physicianon 09-12-20 ED Note-Physician Basic Information Time Seen: Eric CLAYTON, Nikita Escamilla 09/12/2023 17:27 Chief Complaint patient states that [...] and Complexity of Problems Differential Diagnosis: [] [facility] Data External documents reviewed: [] My [...] medications Follow-up With When Contact Information CRUZ NICK In 3 days 09/15/2023 EDT [address] [place] [address]- Business (1) Additional Instructions: Follow-up with your primary care provider in 3 to 5 days. If symptoms worsen, do not improve, or new symptoms arise please report back to emergency department for further evaluation. Patient Education How to Take Your Blood Pressure Hypertension, Adult, Fwdc-mq-Qfke General Headache Without Cause, Rzfk-me-Rqyg Attestation Patient seen and evaluated by the physician assistant drafter. Attending physician was present in the emergency department and supervised care. This visit was performed by both the physician and an APC. I performed all aspects of the MDM as doc (more content not included)... Normal [facility] Comment on above: Result Comment: [...] Keep all follow-up visits. Medicines ? Take hqlk-ygn-akuewzg and prescription medicines only as told by [...] For m (more content not included)... Normal [facility] ED Patient Summaryon 023 ED Patient Summary (Inserted Image. Poly ble to display) [place] [id number] Patient Discharge Instructions Person Information Name: DRISS COPE Age: 28 Years Arrival Date: 09/12/2023 17:21:17 Discharge Diagnosis: Elevated blood pressure reading; Headache Primary Care Physician: CRUZ RODRÍGUEZ MD Provider Information Primary Provider: Von Loco DO Advanced Fabricator Industrial Furnace:None The exam and treatment you received in the Emergency Department were for an urgent problem and are not intended as complete care. It is important that you follow up with a doctor, nurse practitioner, or physician?s assistant drafter for ongoing care. If your symptoms become worse or you do not improve as expected and you are unable to reach your usual health care provider, you should return to the Emergency Department. We are available 24 hours a day. SUNILBOYDDRISS has been given the following list of patient education materials, prescriptions and follow-up instructions: Follow-up Instructions: With: Address: When: CRUZ NICK [address] [place] [address] Business (1) In 3 days 09/15/2023 Comments: [...] to Take Your Blood Pressure; Hypertension, Adult, Bxau-gs-Nstp; General Headache Without Cause, Kwqb-gq-Kdzj A MESSAGE TO ALL PATIENTS REGARDING OPIOIDS PRESCRIPTION OPIOIDS: WHAT YOU NEED TO KNOW Prescription opioids can be used to help relieve pbhureuh-ec-bddklu pain and are often prescribed following a [...] Administration (www.fda.gov/Drugs/Reso (more content not included)... Normal [facility] Cytology Cervical or vaginal smear or scraping [facility] 08-15-2023 [facility] 08-02-2023 [facility] Telephone ([facility]) DRISS COPE ([id number]) 1995 F Date Time Provider Department 08/02/23 CHARLENE RODRIGUEZ [facility] During your visit today, we recorded [...] completed via Cover MyMeds. Driss Cope (Morales: [id number]) - [id number] Orilissa 150MG tablets Status: Sent To Plan [...] Encounter Status:Closed by LESLEY LYNN on 08/02/23 [facility] CNOVon 07-16-2023 CNOV Office Visit ([facility] ) SUNILDRISS NIX ([id number]) 1995 F Date Time Provider Department 07/16/23 11:30 AM CHARLENE RODRIGUEZ During your visit today, we recorded the following information about you: Blood pressure Last Period 136/90 07/08/23 Charlene Rodriguez DO 07/16/2023 12:41 PM Signed [facility] SECTION FOR MINIMALLY INVASIVE GYNECOLOGIC SURGERY OUTPATIENT VISIT DATE 07/16/2023 OUTPATIENT VISIT TYPE Follow-up visit PRIMARY CARE PHYSICIAN: Cruz Rodríguez [address] [place] [address] REFERRING PHYSICIAN: Cruz Rodríguez CHIEF COMPLAINT: No [...] additional bowel lesions identified 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 Normal [facility] Nonvisit Note - PTon 023 Nonvisit Note - PT she canceled in the reminder system on 06-18-23 for her appointment 06-19-23. Normal [facility] PT - Otheron 06-18-2023 PT - Other [id number] CD:127 Normal [facility] MRI FEMALE PELVIS WO/W IVCON [...] additional findings. IMPRESSION: No deep infiltrating endometriosis. Sorter Lumber Straightener: DAVID Transcribe Date/Time: Jun 12 2023 2:54P Dictated by : ASHLEY DUKE MD This examination was interpreted and the report reviewed and electronically signed by: SONIDO FLAHERTY MD on Jun 12 2023 4:51PM EST [id number] Normal [facility] Nonvisit Note - PTon 023 Nonvisit Note - PT canceled in the reminder system. KK Normal [facility] Nonvisit Note - PTon 023 Nonvisit Note - PT didn't show for her appointment today. Normal [facility] Insurance Correspondenceon 0 05-14-2023 Insurance Correspondence [id number] D:127 [facility] CNPNon 05-11-2023 CNPN Telephone ([facility]) DRISS COPE ([id number]) 1995 F Date Time Provider Department 05/11/23 CHARLENE RODRIGUEZ [facility] During your visit today, we recorded the following information about you: [facility]11[facility]23 1:21 PM Signed Reason for call: [...] Takes aygestin 5mg daily. She did not belt picker flexeril. Encourage to belt picker the flexeril as this will help with the cramping. Reviewed red flag bleeding symptoms that require trip to ER (soaking greater than one overnight pad per hour, chest pain, shortness of breath, fatigue, palpitations).. Advised keep appt. Gives verbal understanding. Appointments for Next 60 Days Date Time Provider Location Dept Phone 05/17/2023 1:00 PM CHARLENE RODRIGUEZ [facility] Stro [phone] Christa Suárez RN Allergies As of Date: 05/11/2023 (No Known Allergies) Date Reviewed: 05/09/2023 Reviewed by: Srinivasa Reaper, MUSTANGER.SENIOR DIRECTOR INSIGHT - Fully Assessed Reason for Visit: Vaginal [...] Encounter Status:Closed by CHRISTA WILLINGHAM on 05/11/23 [facility] Operative Reporton 3 Operative Report SURGERY DATE: 12/30/2022 VACUUM DRUM DRIER OPERATOR: None PREOPERATIVE DIAGNOSES: 1. Vaginal bleeding 2. [...] taken to Recovery Room in stable condition. Marlen Gonzalez Dictated: 12/30/2022 [id number] Transcribed: 01/01/2023 [facility] Comment on above: Result Comment: Elec tronically Signed By: Nathan POP DObr\Date and Time Signed: 05/10/23 11:28 EDT PT - Consentson 05-10-2023 PT - Consents [id number] D:127 [facility] Consent for Treatmenton 04-26 Consent for Treatment [id number] D:127 [facility] PT - Orderson 05-09-2023 PT - Orders [id number] CD:127 [facility] Nonvisit Note - PTon 023 Nonvisit Note - PT Chart reviewed with eval prepped for scheduled eval. KK [facility] CNOVon 05-01-2023 [facility] DRISS COPE ([id number]) 1995 F Date Time Provider Department 05/01/23 10:30 AM [facility] During your visit today, we recorded the following information about you: Blood pressure Weight Height Last Period 148/64 64.9 kg 1.575 m 04/22/23 Srinivasa Downs APRN.SENIOR DIRECTOR INSIGHT 05/09/2023 11:46 AM Signed Driss Cope is a 28 year old female who presents for problem visit for pain HPI: Pain is week before period and week of period. Worse on her period for every day she's bleeding Urinary - No symptoms GI - Always constipated. No meds [place] - painful always Pain is on left [...] L0 SAB0 IAB0 Ectopic0 Multiple0 Live Births0 Customer Acquisition Manager History LMP: 03/26/2023 (Approximate), Having periods Age at Menarche: Age at First : Age at Menopause: Customer Acquisition Manager History Comments: Sexual Activity: Never; No partner [...] physical therapy - or can go locally Creabilis Trial flexeril at bedtime Can consider Baclofen [...] physical therapy - or can go locally Creabilis Trial flexeril at bedtime Can consider Baclofen suppositories - let me know if you want to trial after you go to PT Contin (more content not included)... Normal [facility] CNOVon 04-11-2023 CNOV Office Visit ([facility] ) DRISS COPE ([id number]) 1995 F Date Time Provider Department 04/11/23 11:00 AM CHARLENE RODRIGUEZ During your visit today, we recorded the following information about you: Blood pressure Last Period 123/84 03/26/23 Charlene Rodriguez DO 04/11/2023 8:18 PM Signed [facility] SECTION FOR MINIMALLY INVASIVE GYNECOLOGIC SURGERY OUTPATIENT VISIT DATE 04/11/2023 OUTPATIENT VISIT TYPE NEW PRIMARY CARE PHYSICIAN: Cruz Rodríguez [address] [place] [address] REFERRING PHYSICIAN: Self Patient is a former [facility] patient with confirmed endometriosis. CHIEF COMPLAINT: Menstrual Problem HISTORY OF PRESENT ILLNESS: Driss Cope is a pleasant 28 year old female who presents for evaluation of endometriosis. 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 Had to leave work. Please call [phone] Referring Provider: SELF [200] Allergies As of [...] 30 tabletRfl: 3 CONSULT TO PHYSICAL THERAPY [2568] Order #: [id number]: 1 FUTURE Prescriptions as of 04/25/2023 - metoprolol succinate ER (TOPROL XL) 25 mg 24 hr tablet - norethindrone (AYGESTIN) 5 mg tablet Take 1 tablet (more content not included)... Normal [facility] Metabolic Pane siomara 03-23-2023 Albumin [Mass/Vol] 4.4 g/dL Normal 3.5-5.7 [facility] Comment on above: Order Comment: Reaso n for Exam Hypertension Reason for Exam Anemia Performed By: #### M G, CMP, CBC #### [facility] [address] [place] [address] [place] Albumin/Globulin [Mass ratio] 1.4 {ratio} Normal [facility] Comment on above: Order Comment: Reaso n for Exam Hypertension Reason for Exam Anemia Performed By: #### M G, CMP, CBC #### [facility] [address] [place] [address] [place] ALP [Catalytic activity/Vol] 104 U/L Normal 34-104 [facility] Comment on above: Order Comment: Reaso n for Exam Hypertension Reason for Exam Anemia Performed By: #### M G, CMP, CBC #### [facility] [address] [place] [address] [place] ALT [Catalytic activity/Vol] 32 U/L Normal 7-52 [facility] Comment on above: Order Comment: Reaso n for Exam Hypertension Reason for Exam Anemia Performed By: #### M G, CMP, CBC #### [facility] [address] [place] [address] [place] Anion gap [Moles/Vol] 11.2 mmol/L Normal 6.0-15.0 [facility] Comment on above: Order Comment: Reaso n for Exam Hypertension Reason for Exam Anemia Performed By: #### M G, CMP, CBC #### [facility] [address] AST [Catalytic activity/Vol] 23 U/L Normal 13-39 [facility] Comment on above: Order Comment: Reaso n for Exam Hypertension Reason for Exam Anemia Performed By: #### M G, CMP, CBC #### [facility] [address] Bilirubin [Mass/Vol] 0.6 mg/dL Normal 0.3-1.0 [facility] Comment on above: Order Comment: Reaso n for Exam Hypertension Reason for Exam Anemia Performed By: #### M G, CMP, CBC #### [facility] [address] Calcium [Mass/Vol] 9.1 mg/dL Normal 8.6-10.3 [facility] Comment on above: Order Comment: Reaso n for Exam Hypertension Reason for Exam Anemia Performed By: #### M G, CMP, CBC #### [facility] [address] [place] [address] [place] Chloride [Moles/Vol] 103 mmol/L Normal 98-107 [facility] Comment on above: Order Comment: Reaso n for Exam Hypertension Reason for Exam Anemia Performed By: #### M G, CMP, CBC #### [facility] [address] [place] [address] [place] CO2 [Moles/Vol] 26.9 mmol/L Normal 21.0-31.0 [facility] Comment on above: Order Comment: Reaso n for Exam Hypertension Reason for Exam Anemia Performed By: #### M G, CMP, CBC #### [facility] [address] [place] [address] [place] Creatinine [Mass/Vol] 0.87 mg/dL Normal 0.60-1.20 [facility] Comment on above: Order Comment: Reaso n for Exam Hypertension Reason for Exam Anemia Performed By: #### M G, CMP, CBC #### [facility] [address] [place] [address] [place] GFR/1.73 sq M.predicted MDRD (S/P/Bld) [Vol rate/Area] mL/min/{1.73_m2} [facility] Comment on above: Order Comment: Reaso n for Exam Hypertension Reason for Exam Anemia Performed By: #### M G, CMP, CBC #### [facility] [address] [place] [id number] [place] Globulin (S) [Mass/Vol] 3.1 g/dL [facility] Comment on above: Order Comment: Reaso n for Exam Hypertension Reason for Exam Anemia Performed By: #### M G, CMP, CBC #### [facility] [address] Glucose [Mass/Vol] 100 mg/dL Normal 70-100 [facility] Comment on above: Order Comment: Reaso n for Exam Hypertension Reason for Exam Anemia Result Comment: [facility] Glucose Reference Range is dependent on time and content of last meal. Glucose of more than 200 mg/dL in a nonstressed, ambulatory subject supports the diagnosis of Diabetes Mellitus. ADA recommended reference range Performed By: #### M G, CMP, CBC #### [facility] [address] [place] [address] [place] Potassium [Moles/Vol] 4.1 mmol/L Normal 3.5-5.1 [facility] Comment on above: Order Comment: Reaso n for Exam Hypertension Reason for Exam Anemia Performed By: #### M G, CMP, CBC #### [facility] [address] [place] [id number] [place] Protein [Mass/Vol] 7.5 g/dL Normal 6.4-8.9 [facility] Comment on above: Order Comment: Reaso n for Exam Hypertension Reason for Exam Anemia Performed By: #### M G, CMP, CBC #### [facility] [address] [place] [id number] [place] Sodium [Moles/Vol] 137 mmol/L Normal 136-145 [facility] Comment on above: Order Comment: Reaso n for Exam Hypertension Reason for Exam Anemia Performed By: #### M G, CMP, CBC #### [facility] [address] [place] [address] [facility] Urea nitrogen [Mass/Vol] 14 mg/dL Normal 7-25 [facility] Comment on above: Order Comment: Reaso n for Exam Hypertension Reason for Exam Anemia Performed By: #### M G, CMP, CBC #### [facility] [address] [place] [address] [place] Ferritinon 03-23-2023 Ferritin [Mass/Vol] 2.8 ng/mL Low 11.0-306.8 [facility] Comment on above: Order Comment: Reaso n for Exam Hypertension Reason for Exam Anemia Performed By: #### M G, CMP, CBC #### [facility] [address] [place] [id number] [facility] Iron and TIBC Profileon 02-25 % Iron Saturation 3.9 % Low 20-50 [facility] Comment on above: Order Comment: Reaso n for Exam Hypertension Reason for Exam Anemia Performed By: #### M G, CMP, CBC #### [facility] [address] [place] [address] [facility] Iron [Mass/Vol] 21 ug/dL Low 50-212 [facility] Comment on above: Order Comment: Reaso n for Exam Hypertension Reason for Exam Anemia Performed By: #### M G, CMP, CBC #### [facility] [address] [place] [address] [facility] Total Iron Binding Capacity 538 ug/dL High 255-450 [facility] Comment on above: Order Comment: Reaso n for Exam Hypertension Reason for Exam Anemia Performed By: #### M G, CMP, CBC #### [facility] [address] [place] [address] [place] Transferrin [Mass/Vol] 384 mg/dL High 203-362 [facility] Comment on above: Order Comment: Reaso n for Exam Hypertension Reason for Exam Anemia Performed By: #### M G, CMP, CBC #### [facility] [address] [place] [address] [place] Magnesiumon 03-23-2023 Magnesium [Mass/Vol] 1.9 mg/dL Normal 1.9-2.7 [facility] Comment on above: Order Comment: Reaso n for Exam Hypertension Reason for Exam Anemia Performed By: #### M G, CMP, CBC #### [facility] [address] Scan and CBCon 03-23-2023 Anisocytosis Ql (Bld) Slight Normal [facility] Comment on above: Order Comment: Reaso n for Exam Hypertension;Anemia Performed By: #### M G, CMP, CBC #### [facility] [address] Basophils (Bld) [#/Vol] 0.1 10*3/uL Normal 0.0-0.2 [facility] Comment on above: Order Comment: Reaso n for Exam Hypertension;Anemia Performed By: #### M G, CMP, CBC #### [facility] [address] [place] [address] Basophils/100 WBC (Bld) 1.3 % Normal . [facility] Comment on above: Order Comment: Reaso n for Exam Hypertension;Anemia Performed By: #### M G, CMP, CBC #### [facility] [address] [place] [address] [place] Eosinophils (Bld) [#/Vol] 0.1 10*3/uL Normal 0.0-0.45 [facility] Comment on above: Order Comment: Reaso n for Exam Hypertension;Anemia Performed By: #### M G, CMP, CBC #### [facility] [address] [place] [address] [place] Eosinophils/100 WBC (Bld) 1.3 % Normal . [facility] Comment on above: Order Comment: Reaso n for Exam Hypertension;Anemia Performed By: #### M G, CMP, CBC #### [facility] [address] Erythrocyte distribution width (RBC) [Ratio] 16.1 % High 11.9-15.3 [facility] Comment on above: Order Comment: Reaso n for Exam Hypertension;Anemia Performed By: #### M G, CMP, CBC #### [facility] [address] [place] [address] Hematocrit (Bld) [Volume fraction] 32.9 % Low 34.0-46.4 [facility] Comment on above: Order Comment: Reaso n for Exam Hypertension;Anemia Performed By: #### M G, CMP, CBC #### [facility] [address] [place] [address] Hemoglobin (Bld) [Mass/Vol] 10.1 g/dL Low 11.8-15.4 [facility] Comment on above: Order Comment: Reaso n for Exam Hypertension;Anemia Performed By: #### M G, CMP, CBC #### [facility] [address] [place] [address] Lymphocytes (Bld) [#/Vol] 3.3 10*3/uL Normal 1.00-4.8 [facility] Comment on above: Order Comment: Reaso n for Exam Hypertension;Anemia Performed By: #### M G, CMP, CBC #### [facility] [address] [place] [address] Lymphocytes/100 WBC (Bld) 41.6 % Normal . [facility] Comment on above: Order Comment: Reaso n for Exam Hypertension;Anemia Performed By: #### M G, CMP, CBC #### [facility] [address] [place] [address] MCH (RBC) [Entitic mass] 21.2 pg Low 24.7-34.3 [facility] Comment on above: Order Comment: Reaso n for Exam Hypertension;Anemia Performed By: #### M G, CMP, CBC #### [facility] [address] [place] [address] MCV (RBC) [Entitic vol] 69.2 fL Low 80-100 [facility] Comment on above: Order Comment: Reaso n for Exam Hypertension;Anemia Performed By: #### M G, CMP, CBC #### [facility] [address] [place] [address] Mean Corpuscular HGB Conc 30.6 g/dL Low 32.0-35.0 [facility] Comment on above: Order Comment: Reaso n for Exam Hypertension;Anemia Performed By: #### M G, CMP, CBC #### [facility] [address] [place] [address] Microcytosis Moderate Normal [facility] Comment on above: Order Comment: Reaso n for Exam Hypertension;Anemia Performed By: #### M G, CMP, CBC #### [facility] [address] Monocytes (Bld) [#/Vol] 0.7 10*3/uL Normal 0.0-0.8 [facility] Comment on above: Order Comment: Reaso n for Exam Hypertension;Anemia Performed By: #### M G, CMP, CBC #### [facility] [address] [place] [address] Monocytes/100 WBC (Bld) 8.2 % Normal . [facility] Comment on above: Order Comment: Reaso n for Exam Hypertension;Anemia Performed By: #### M G, CMP, CBC #### [facility] [address] [place] [address] [place] Neutrophils (Bld) [#/Vol] 3.8 10*3/uL Normal 1.8-7.7 [facility] Comment on above: Order Comment: Reaso n for Exam Hypertension;Anemia Performed By: #### M G, CMP, CBC #### [address] Neutrophils/100 WBC (Bld) 47.6 % Normal . [facility] Comment on above: Order Comment: Reaso n for Exam Hypertension;Anemia Performed By: #### M G, CMP, CBC #### [facility] [address] [place] [address] NRBC% 0.1 /100{WBC} Normal 0-0.5 [facility] Comment on above: Order Comment: Reaso n for Exam Hypertension;Anemia Performed By: #### M G, CMP, CBC #### [facility] [address] [place] [address] Platelet Estimate Normal Normal Normal [facility] Comment on above: Order Comment: Reaso n for Exam Hypertension;Anemia Result Comment: PERF ORMED BY: [place] [address] PATHOLOGIST CAPACITOR TESTER JESUS JIN M.D. Performed By: #### M G, CMP, CBC #### [address] Platelet mean volume (Bld) [Entitic vol] 8.2 fL Normal 6.3-10.7 [facility] Comment on above: Order Comment: Reaso n for Exam Hypertension;Anemia Performed By: #### M G, CMP, CBC #### [address] Platelets (Bld) [#/Vol] 393 10*3/uL Normal 150-450 [facility] Comment on above: Order Comment: Reaso n for Exam Hypertension;Anemia Performed By: #### M G, CMP, CBC #### [address] RBC (Bld) [#/Vol] 4.75 10*6/uL Normal 3.60-5.00 [facility] Comment on above: Order Comment: Reaso n for Exam Hypertension;Anemia Performed By: #### M G, CMP, CBC #### [address] WBC (Bld) [#/Vol] 8.0 10*3/uL Normal 3.8-11.6 [facility] Comment on above: Order Comment: Reaso n for Exam Hypertension;Anemia Performed By: #### M G, CMP, CBC #### [facility] [address] [place] [address] Thyroid Stimulating Hormoneo n 03-23-2023 TSH Qn 1.24 m[IU]/L Normal 0.45-5.33 [facility] Comment on above: Order Comment: Reaso n for Exam Hypertension Reason for Exam Anemia Performed By: #### M G, CMP, CBC #### [address] Vitamin B12on 03-23-2023 Cobalamin (Vitamin B12) [Mass/Vol] 238 pg/mL Normal 180-914 [facility] Comment on above: Order Comment: Reaso n for Exam Hypertension Reason for Exam Anemia Performed By: #### M G, CMP, CBC #### [facility] [id number] [facility] Vitamin D 25 Hydroxy Totalon 03-23-2023 Vitamin D 25 Hydroxy Total 19.2 ng/mL Low 30-100 [facility] Comment on above: Order Comment: Reaso n for Exam Hypertension Reason for Exam Anemia Result Comment: KIRSTIE MIN D STATUS 25(OH)VITAMIN D RANGE (ng/mL) Deficient <20 Insufficient 20 to <30 Sufficient 30 to 100 Reference: Aaron MF,Lee NC, Gloria SUH, et al. Evaluation,treatment, and prevention of vitamin D deficiency; an Endocrine Society clinical practice guideline. JCEM. 2010; 96(7):1911-30. PERFORMED BY: [place] [address] PATHOLOGIST CAPACITOR TESTER JESUS JIN M.D. Performed By: #### M G, CMP, CBC #### [facility] [id number] [facility] Coding Summary.on 02-03-2023 Coding Summary. CD:[id number] Gh0 bWw+PGhlYWQ+ZI2KEBWwK26 ikWXkrB2xG9KNJKmJQmziCW YDHArHRjUhbyBdRX6epDNhV XJu IC8+KK0rGMVnGpwasYHon1H 5mRN4I33djp1jYDlhkHY2NU AdDjRaamykf3xygJy4KHrtZ mluOyBt ZPNpcR16VSI2eR68Aw70qIC baYYxd5feoHa5DvWxOLJfJD M3xVdoYEekx9WvYSXvS26dy WVsq6Z6 ZVKaoZxnqFIsIuDkyXI9fA9 fSEgymsasd8unqticIra4oz 81vQAuc9Q6sZC2H5AzdpQ7S GJvbGQg UjdvcFIWtG5ztutli7juuwa uZuLwDSEgWWh5BNf9DFDbyF odPrDbBA56IGU5ETZtkiMzB 2FsLWFs zZcsTlJ3f2S2Qo6WM0HZBue wP2LIZLQMHWmqgUA+PC90cj 45Q0GzMvnyToq5UTYdUKL3p GW2aU4a GOTdZLibl2E9bOQ8G7GqasN nba9sx9gwIZHoFRggF75xjU Rtu2N1XWZveZP7LFKpdCcbG iBzaG93 Oyc+QPWfxCamr3VfEucfd2t im4gtiKe6IawlWZMkvgMghR qrFVB7s8VgOo0gTCOphWY8w BJ2vI6v NuMwJzS0CChyN926XhKdcES jQnftR27iK1VpqYM+PHRyPj f5XMTupCfaGS5rH6KqXYYgs mctbGVm uFolXA0uBJOdhfhmFFZgkG0 yDZQgH1i7QiGhMeB8KKvlQ6 WnQUScgfrdJf79hN9eZbOjJ cY4YDjm C8SusvW2ZBMwhQHfROelFKR 5Q63qn1Q0OXAqMEKyONW7wV H2iA0xzAwcswdpkIHjhPcwb mVydGlj CCegLImdG833NFCtmVwoNhN vZGluZyBEYXRlOiAgMDMvMT EvMjAyMzwvdGQ+JIDzCFX9w WxlPSAn fMRaKPbfGb4crJmjgVdzTA5 gPWTgqkbvPUAzsN0dEIQrsY LqmCmjRI7vMBFoacjjy712X iAxMHB0 WYLklRVzP1BceU4fNaPlIUT sZVNyI0XivURwTNxqM265WB vfWzW5QPEfigIhN9BeMDIoo WduOiB0 c2H4Pn3Cj1UdafmtZ6OmuWN dLpOaOxzmWBa7F5GnRucqrY I+OV39TGGfTI06AAw5NPB2h WxlPSdi LPMeY1XrpQ3eAiHuOFZvBGO kOyc+PHRhYmxlIHdpZHRoPS qmYLKuDkSseVtgHN2eMg4uQ GVyLWNv pCsywNQpPkYdl6dwWTMeZOp xCU3roVmnY5PspHJ3FLAmk8 n6Pi54A92qU6SaoGS+PGNvb JF8xPZ1 yE5gMqXsRdQ6LGfwZ109OpU suCNeRfcnk6snc0qgjHa6Nn I1BOOjarWfiCcbHSW1d8NdK e57N04h IHdpZHRoPSIxNSUiIHZhbGl jdo2qdF3pYz1+AFWxfJZ4uP M3fN8hUeOtVjS7FJwpB612L nRvcCIv Rkiwa1itu3sexVu7OrZxYTD zxnBcxWypXZT7j0ZrFd99V4 WhbPifx4UuMso7xe52xAPyc 2V7bZU5 L9SfZQNenfknnWUwdDpcPF5 qWVUrzhelMDNtiO8sNPOfN1 r5KjHvGgR7WHofT2GhagU7C GJvbGQg EHUbfSUIdH3ophrbh3bkacx wZrMrRAWxRQr5XQx6TPWhiT eeBcRhFDH7LsG8EUO0lIUjs X4qzBrz zgczwI6sUor+HWR1sVYgjOM HDK6yPgygcYA+BMRgYAL4fT edVPjhXNSuaI7vWYTnA5i4Y iAwLjA1 UDsuW6QlizM5MTEqlCMfHOO yfOOLhJ8arjmwo2fldwncXd AeXRCqUGt4RXv6WWWtyKlxA iBsZWZ0 TiH5LZO1lBPyoD5zzIwoeuh rpO8bDnn+HgnoiTvtCEX9BW l3Z7LjVor6NRUssAbeHP3ly GFkZGlu De6ueVljrBptPR7yGWVnvib uy067NaYab2enFCWojVZcTW iuHQC8M59fl8I2ISAnBWOeH IC9hXJ2 cA4wxOmxtsmpuYXupKqoiuB exGhgHFupQNpgF520TMJhrP lqYuFuEUq1R4JbEgo3UJVqa TkoGK0w aLMiWIrpKk9xtUyneDlgHV1 fLVZgiecbz630BkMqd2yaNG VzyGVcJYkdKXD7A36ug8O7V CMwMDAw MVP7hUQ9hD9xsHlmgidqiMT mdDsgdmVydGljYWwtYWxpZ2 81TLRanYhvSrTydOu8P2GnD uv3HHNa bIqoLY8jvQBaPAqrFu5piXm pxWyxVX8yELMfhnyai703Kn Bpm2dbMXAbrRGiMVsuJGU2H 50jf1J3 GGEwCYNlCRP6fOU3eS6yvLv nbjogbGVmdDsgdmVydGljYW vuWQufB419UYMjyUkhJyXqj GllbnQg CAhsWUm5M8LcCwjjpWQ+PC9 3GWJkPU53rAUwtXMju8rzcV j4KfLpNPKoKCS2dFlwDLvgh 3JkZXIt D63cjCYuh4G0FMYskGxztFY wPjPzyVZ9nQ6wEVpghqepv3 vihhlgCwmeu2cqkj98lE06J 29sIHdp ZHRoPSIzMCUiIHZhbGlnbj0 afH1pYv0+GNGxiMJ4xIQ3tR 0kXCMwXvW1VJhkF988GpOaq CIvPjxj p1zdc8ywgJh0RfP2WYVmooZ xeHvbERI6j7EiQl73V11aHY dpZHRoPSIyMCUiIHZhbGlnb n6nfP5a Ii8+CVUumHV5jCB4iF5lUvL lIbR1TZcfS948IcNplSYsXp kaD15oT8BsnVT+LVEsKzc5G CBzdHls EO8ngYMeLRleOj7wQHZ4ApP zEaKqZNjdF1DxPGGisjvbyq bnhFK2JYCvNIQncL50Rv9gi DogMTBw hOEJhH8kpjvmw5supgxuErP wALYkDWm9SRr4PNMzaUyoXu SrHDG3CfZ7LGA0dJUteC0le Glnbjog tR0rK6RhSPLfonszXm89rM3 cWkQuGpZ4UMbwEue+Q0FOVE yLEIqtERiGFUmWGJ99S6MsJ ok2PJBl vDmsAN5jfHCzKPrmRk1biXm bzMimUW0yGDGdgwekEUNkvE 7nSBQpnFOaoKohBH5fFDMju sjiy400 OrQcEPP0KITwhQYhY9PhjV9 zArKrMMVpZZFdG8FfjXAfBS zkN492YYmlBcL5DUHvbnLpC 2FsLWFs oBanTiP5s9T9Gm9yGT1wDI3 vABd9LP60EO70jCOac7E7hP R9W6HmRQNntienyyflfUG2D DAuMDUw cX42dCAnNLbdAb7xu3O9l32 8ISXlRWHxuO90Jk6aaElaUK IyiUILyN7vkulxo2svookjO zAwMDAw WVx1QWg6RMZiuXpkRfFiASR 3WnJ1OAB3wHJoqX3pfJyqro jfnP3cIew+QwvuXFQefqK3K 1KeMgg3 LWPvzYmeSO9xhEQsWBrdPn3 fbJkecUwiJC6hYBWzxmooFV UqnY1tLRIntMJiiNqgBN0hC TBpbjtm b128VtUpUMP4IFZbgKTcI2D nxM6lEaAoCSDbGZQgJ0HkkM NyKGxrX153TVnqRuE2ZROvf qRlW6Sn AYFmsZnmGxW5j7Q3Qw1RMQ8 gmEY5V6CtRne1YDNsyUlzHA 4hfBFcXMdqRd8hfYsodVdvE M3ePXYs ocmpGCFaxH9nGJDkeYXzwQw fDI2cYPZwngmjh133WpVeUU X4WXYijTQcC4DefE5cUzNuY DAwMDAw I3IudCSeHPszG211RDkfNxU 1BYGsykJuT9WeYLQnpCuoVw C2r2H6Qq7LdAVmD7OwX1t8O 3RkPjwv dHI+OD90CYRfPN50gAIvnKD rm2ersQq1ZeVcDIMsSZG8fF gjMQkiq3HrPCHdV70tkAOyy 2T6JAXx iBsgkPYyEmYfhFB3dC1fECg bwysou2xlejriUzrvy9thrn 57vP78C92nPYlyOPJbZDLqE CUiIHZh dTwzny0dyN9wNj7+PGNvbCB 3cES1jQ3eKvDoDfR4RAxrJ1 16GzRwjJEiRbpga3fcf7ute Vt3HoQn ZXAibuPvuKykXUI5c2NgRd0 6V45tBVsgMYIkVWPnYADvXA HonVcfvt7frQ2iDi7+PC9jb 6iymi81 jF01eGP+TBIfCPF7aYprHMp iFVCmcF7bFJyfKnC7YKTxWx VryL40wDBsSXudIc5orWoar BrlNF0l OCRwlwjir650RbZwj7njDQN pfNAlUHpbHMT3M09jm6E3EY IoBPIaPWI0sQV1yK4jlOhyk jogbGVm sTgdowIiqEwwBEgdHAnxK18 0FAYpdCrcNbUqiGMgB5vqyp OULN8fVwdxsPT+OZBcZAL1x WxlPSdw RKXsqK5eXQPjD4r5GqTbKmP 1UXxgV9TnoqE4ZDCdkYJoBB TleXBUrF0hpclbp7yivyoxF zAwMDAw EAn0TEu8FJIvoNrnKfOwGTW 7CuJ3IDE8aHGzvV7rqDfkxw ggrQ8zCbl+RklOOjwvdGQ+P HRkIHN0 rCpoWMltQBEirX8qRMOmZ5m 0HoUrXhS5ATrsS4EsxlM2MA ZqeYBtZGJakUIVsV2zcaufb 2xvcjog DiQrUNQqJRb7ROe8JSIkzAd yHwCfRWX4WoG7CAC1fRSksQ 5zjCbyaneubZ8dXoe+TVJOO jwvdGQ+ PYKxDNV0hImrTFtcYSYyiY3 hOFMdU0r8MmRmVaW4UGkcN5 DompN8QVFldGDsCINocKAYu M4rgppv j3tyqrzwWoKdYNOeREe8SEv 2TWVtpGntXmEwSFZ4PhU9LE S2xYGceS4orHkgcbjsvY5oT yc+UGF5 QQR6JV88SH25C1FxVnvimJE ibGU+PHRhYmxlIHdpZHRoPS iuAYUaMuIwwDeeJI7nVi4wN GVyLWNv bGxh (more content not included)... Normal [facility] Auto Diffon 01-31-2023 Basophils/100 WBC (Bld) 0.7 % Normal 0.0-2.0 [facility] Comment on above: Order Comment: Order Added by Discern Expert. Performed By: #### 2 076614, 8965049, 9429973, 13263777, 91247576, 1370556 ####[facility] [address] [place] [address] Basophils/Leukocytes Auto (Bld) [Pure # fraction] 0.1 E9/L Normal 0.0-0.2 [facility] Comment on above: Order Comment: Order Added by Discern Expert. Performed By: #### 2 077998, 2457198, 4177469, 60689286, 56028735, 6499147 ####[facility] [address] [place] [address] Eosinophils/100 WBC (Bld) 1.1 % Normal 0.0-8.0 [facility] Comment on above: Order Comment: Order Added by Discern Expert. Performed By: #### 2 150678, 2411727, 7992268, 81787996, 89909544, 8550438 ####[address] [place] [address] Eosinophils/Leukocyte s Auto (Bld) [Pure # fraction] 0.1 E9/L Normal 0.0-0.5 [facility] Comment on above: Order Comment: Order Added by Dominick Expert. Performed By: #### 2 456757, 3651812, 3043976, 47426129, 88938550, 0006390 ####[address] [place] [address] Lymphocytes/100 WBC (Bld) 31.7 % Normal 14.0-50.0 [facility] Comment on above: Order Comment: Order Added by Dominick Expert. Performed By: #### 2 745464, 0049345, 5692655, 63165690, 66603366, 4632038 ####[address] [place] [address] Lymphocytes/Leukocyte s Auto (Bld) [Pure # fraction] 2.4 E9/L Normal 1.0-4.0 [facility] Comment on above: Order Comment: Order Added by Dominick Expert. Performed By: #### 2 163908, 5767752, 3079225, 93404922, 06118397, 4569269 ####[address] [place] [address] Monocytes/100 WBC (Bld) 9.1 % Normal 4.0-14.0 [facility] Comment on above: Order Comment: Order Added by Discern Expert. Performed By: #### 2 944837, 2572554, 4326604, 90034729, 69511060, 3656792 ####[facility] [address] [place] [address] Monocytes/Leukocytes Auto (Bld) [Pure # fraction] 0.7 E9/L Normal 0.2-1.0 [facility] Comment on above: Order Comment: Order Added by Discern Expert. Performed By: #### 2 692588, 9680699, 0070252, 09390707, 22200581, 5378415 ####[facility] [address] [place] [address] Neutrophils/100 WBC (Bld) 57.4 % Normal 36.0-75.0 [facility] Comment on above: Order Comment: Order Added by Dominick Expert. Performed By: #### 2 011143, 4614296, 6969928, 22406352, 47142128, 9038656 ####[facility] [address] [place] [address] Neutrophils/Leukocyte s Auto (Bld) [Pure # fraction] 4.3 E9/L Normal 2.0-7.5 [facility] Comment on above: Order Comment: Order Added by Dominick Expert. Performed By: #### 2 686879, 9323374, 7461646, 20533224, 68954158, 7322524 ####[facility] [address] [place] [address] BMPon 01-31-2023 Creatinine [Mass/Vol] 1.0 mg/dL Normal 0.5-1.3 [facility] Comment on above: Performed By: #### 2 788110, 6079464, 3274607, 06400712, 45564085, 7436207 ####[facility] [address] [place] [address] Urea nitrogen [Mass/Vol] 10 mg/dL Normal 5-21 [facility] Comment on above: Performed By: #### 2 738327, 4050917, 9210693, 21634178, 20352575, 8660450 ####[facility] [address] [place] [address] Urea nitrogen/Creatinine [Mass ratio] 10 No Units Normal 10-20 [facility] Comment on above: Performed By: #### 2 587555, 5522445, 0053296, 47992610, 57269578, 9384872 ####[facility] [address] [place] [address] Anion gap [Moles/Vol] 14 mmol/L Normal 6-16 [facility] Comment on above: Performed By: #### 2 664451, 0313715, 6952206, 03236178, 03686432, 8669688 ####[facility] [address] [place] [address] Calcium [Mass/Vol] 8.8 mg/dL Low 8.9-11.1 [facility] Comment on above: Performed By: #### 2 844487, 4330606, 0440030, 94854994, 03534508, 6552468 ####[facility] [address] [place] [address] Chloride [Moles/Vol] 100 mmol/L Low 101-111 [facility] Comment on above: Performed By: #### 2 462423, 1266988, 3883353, 87819687, 36960731, 7235307 ####[facility] [address] [place] [address] CO2 [Moles/Vol] 24 mmol/L Normal 21-31 [facility] Comment on above: Performed By: #### 2 559446, 0140433, 5353999, 83235579, 96633449, 8887790 ####[facility] [address] [place] [address] Glucose [Mass/Vol] 104 mg/dL Normal 55-199 [facility] Comment on above: Result Comment: If t his glucose result represents a fasting glucose, interpretation should refer to the following reference range: 55-99 mg/dL Performed By: #### 2 751231, 4494608, 1253402, 62911036, 41677079, 2284429 ####[facility] [address] [place] [address] Potassium [Moles/Vol] 3.6 mmol/L Normal 3.5-5.3 [facility] Comment on above: Performed By: #### 2 712333, 4412095, 6211262, 53702354, 61818402, 2198916 ####[facility] [address] [place] [address] Sodium [Moles/Vol] 134 mmol/L Low 135-145 [facility] Comment on above: Performed By: #### 2 689121, 6083944, 3134197, 32342963, 02664264, 2282163 ####[facility] [address] [place] [address] CBC w/ Auto Diffon Erythrocyte distribution width (RBC) [Ratio] 15.8 % High 10.9-14.2 [facility] Comment on above: Performed By: #### 2 758589, 3276512, 1921699, 31857496, 88856970, 4643080 ####[facility] [address] [place] [address] Hematocrit (Bld) [Volume fraction] 31.7 % Low 34.0-46.0 [facility] Comment on above: Performed By: #### 2 578789, 3649803, 2247244, 04252049, 04961541, 0630226 ####[facility] [address] [place] [address] Hemoglobin (Bld) [Mass/Vol] 9.8 g/dL Low 12.0-16.0 [facility] Comment on above: Performed By: #### 2 340207, 4617453, 5297132, 36383462, 83800634, 7477242 ####[facility] [address] [place] [address] MCH (RBC) [Entitic mass] 22.8 pg Low 27.0-34.0 [facility] Comment on above: Performed By: #### 2 243130, 0515478, 8287200, 62340939, 76459434, 6970740 ####[facility] [address] [place] [address] MCHC (RBC) [Mass/Vol] 30.9 g/dL Low 31.4-36.0 [facility] Comment on above: Performed By: #### 2 411796, 1312128, 8858760, 18228819, 67642904, 3622181 ####[address] [address] MCV (RBC) [Entitic vol] 73.9 fL Low 80.0-100.0 [facility] Comment on above: Performed By: #### 2 712268, 3533213, 6859604, 70441465, 35023103, 2606463 ####[place] [address] Platelet mean volume (Bld) [Entitic vol] 7.0 fL Normal 6.4-10.8 [facility] Comment on above: Performed By: #### 2 821168, 3971801, 4620201, 25781953, 37414694, 8143148 ####[address] [address] Platelets (Bld) [#/Vol] 471.0 E9/L Normal 150.0-500.0 [facility] Comment on above: Performed By: #### 2 183789, 4549213, 7976541, 47920166, 33714689, 8956796 ####[facility] [address] [place] [address] RBC (Bld) [#/Vol] 4.3 E12/L Normal 4.3-5.9 [facility] Comment on above: Performed By: #### 2 878433, 9202985, 8316444, 64258898, 25641986, 4221026 ####[facility] [address] [place] [address] WBC corrected for nucl RBC Auto (Bld) [#/Vol] 7.6 E9/L Normal 4.0-11.0 [facility] Comment on above: Performed By: #### 2 595330, 1095122, 9957517, 26294321, 00383129, 3080636 ####[facility] [address] [place] [address] CHEMISTRYOrdered By: SYSTEM SYSTEM on 01-31-2023 Albumin [...] rate/Area] mL/min/1.73 m2 Normal >=59mL/min/1 .73 m2 [facility] Chem S GFR/1.73 sq M.predicted among non-blacks MDRD (S/P/Bld) [Vol rate/Area] mL/min/1.73 m2 Normal >=59mL/min/1 .73 m2 [facility] Chem S Globulin (S) [Mass/Vol] 3.6 g/dL Normal 1.4 - 4.0 gm/dL FT Remisol Glucose [Mass/Vol] 104 mg/dL Normal 55 - 199 mg/dL FT Remisol Potassium [Moles/Vol] 3.6 mmol/L Normal 3.5 - 5.3 mmol/L [facility] Remisol Protein [Mass/Vol] 7.9 g/dL High 6.0 - 7.8 gm/dL [facility] Remisol Sodium [Moles/Vol] 134 mmol/L Low 135 - 145 mmol/L [facility] Remisol Urea nitrogen [Mass/Vol] 10 mg/dL Normal 5 - 21 mg/dL [facility] Remisol Urea nitrogen/Creatinine [Mass ratio] 10 mg/mg Normal 10 - 20 [facility] Remisol CTA Cheston 01-31-2023 CTA Chest Exam [...] 370 Contrast amount in ml's: 58 Normal [facility] Consent for Treatmenton Consent for Treatment [id number] D:127 Normal [facility] Discharge Instructionson Discharge Instructions [id number] CD:127 Normal [facility] ED Clinical Summaryon 2022 ED Clinical Summary (Inserted Image. Poly ble to display) [place] [address] ED Clinical Summary Person Information Name: DRISS COPE [facility] Age: 27 Years : 1995 Sex: Female Language: [place] Citizen PCP: CRUZ RODRÍGUEZ MD Marital Status: Single [...] 01/31/2023 19:20:33 01/31/2023 19:20:33 01/31/2023 19:20:33 ADDRESS: [address] [place] [id number] [facility] DOC NOTES: MEDICAL INFORMATION: Prescriptions Given: Medications [...] the period With: Address: When: CRUZ RODRÍGUEZ [address] [place] [id number] [facility] () In 3 days DIAGNOSIS: Flank pain; Headache Normal [facility] ED Note-Physicianon 02-01-20 ED Note-Physician [...] [] Discussed with: Patient discussed with patient VIDEO COORDINATOR, Dr Meza. Patient PRODUCT INSPECTION SUPERVISOR was unconcerned with patient presentation as described [...] overall. Concerns for preeclampsia discussed with patient PRODUCT INSPECTION SUPERVISOR, who stated the patient blood pressure may still be elevated due to preeclampsia, was not concerned overall. Patient most likely with a musculoskeletal injury versus viral illness. Patient tachycardia and hypertension resolved over the course of patient's stay in the ED. Return precautions discussed with patient. Patient discharged home for outpatient follow-up with PRODUCT INSPECTION SUPERVISOR. Shared decision making: [] Code status: [] [...] period CRUZ RODRÍGUEZ In 3 days [address] [place] [address] [facility] (1) Additional Instructions: Patient Education Flank Pain, Adult Attestation Patient seen and evaluated by the physician assistant drafter. Attending physician was present in the emergency department and supervised care. This (more content not included)... Normal [facility] Comment on above: Result Comment: Elec tronically Signed By: Clotilde CLAYTON, Mayur Henson\.br\Date and Time Signed: 03/08/23 19:22 EST\.br\Electronically Co-Signed By: Edin Bermudez M.D.\.br\Date and Time Co-Signed: 01/31/23 19:42 EST ED [...] by your health care provider. ? Take vdca-pxl-lamjygx and prescription medicines only as told by [...] Reviewed: 01/25/2018 Elsevier Patient Education ? 2019 [employer]. Normal [facility] ED Patient Summaryon 023 ED Patient Summary (Inserted Image. Poly ble to display) [address] [address] Patient Discharge Instructions Person Information Name: DRISS COPE Age: 27 Years Arrival Date: 01/31/2023 13:41:52 Discharge Diagnosis: Flank pain; Headache Primary Care Physician: CRUZ RODRÍGUEZ MD Provider Information Primary Provider: Edin Bermudez M.D. [employer]:Mayur Mabry PA-C The exam and treatment you received in the Emergency Department were for an urgent problem and are not intended as complete care. It is important that you follow up with a doctor, nurse practitioner, or physician?s assistant drafter for ongoing care. If your symptoms become [...] the period With: Address: When: CRUZ RODRÍGUEZ [facility] [place] [address] [facility] (1) In 3 days In the event that this physician does not participate in your insurance network, please consult with your insurance company to find a nearby participating provider. Patient Education Materials: Flank Pain, Adult A MESSAGE TO ALL PATIENTS REGARDING OPIOIDS PRESCRIPTION OPIOIDS: WHAT YOU NEED TO KNOW Prescription opioids can be used to help relieve sxirlmqo-sf-qloaws pain and are often prescribed following a [...] from the Food and Drug Administration (www.fda.gov/Drugs/Reso urcesForYou). ? Visit www.cdc.gov/drugoverdos e to learn about the risks of opioids abuse and overdose. ? If you believe you may be (more content not included)... Normal [facility] HEMATOLOGYOrdered By: Rufus Jenkins on [...] Bilirubin.indirect [Mass or moles/Vol] UTC Abnormal 0.1-0.9 [facility] Comment on above: Result Comment: Resu lt verified by Discern Rule. Performed result UTC (Unable to Calculate) was sent as an Alpha code due the inability to calculate a valid numeric value. Performed By: #### 2 513705, 5934937, 8445923, 08085694, 64250506, 0550905 ####[address] [place] [address] Albumin [Mass/Vol] 4.3 g/dL Normal 3.3-5.0 [facility] Comment on above: Performed By: #### 2 180035, 6881521, 2639337, 50930968, 98785566, 5497238 ####[facility] [address] [place] [address] Albumin/Globulin (S) [Mass conc ratio] 1.2 Normal 1.1-2.2 [facility] Comment on above: Performed By: #### 2 964878, 7740947, 7840362, 87335179, 27703803, 6172170 ####[facility] [address] [place] [address] ALP [Catalytic activity/Vol] 106 Int._Unit/L High 21-98 [facility] Comment on above: Performed By: #### 2 523820, 3330626, 3202169, 11456948, 63712543, 2683494 ####[facility] [address] [place] [address] ALT No additional P-5'-P [Catalytic activity/Vol] 46 Int._Unit/L Normal 6-46 [facility] Comment on above: Performed By: #### 2 705486, 7173694, 6581430, 30597742, 26968464, 0678350 ####[facility] [address] [place] [address] AST [Catalytic activity/Vol] 37 Int._Unit/L Normal 5-43 [facility] Comment on above: Performed By: #### 2 017624, 6622100, 8742598, 07224633, 74705011, 5300936 ####[facility] [address] [place] [address] Bilirubin [Mass/Vol] 1.2 mg/dL High 0.0-1.1 [facility] Comment on above: Performed By: #### 2 097478, 7599083, 4044208, 58853535, 36028763, 3513524 ####[facility] [address] [place] [address] Bilirubin.direct [Mass/Vol] mg/dL Normal 0.1-0.4 [facility] Comment on above: Performed By: #### 2 974823, 8219385, 6382749, 98694052, 03529017, 6175885 ####[facility] [address] [place] [address] Globulin (S) [Mass/Vol] 3.6 g/dL Normal 1.4-4.0 [facility] Comment on above: Performed By: #### 2 965784, 6839031, 2516802, 50600041, 50023142, 5223937 ####[facility] [address] [place] [address] Protein [Mass/Vol] 7.9 g/dL High 6.0-7.8 [facility] Comment on above: Performed By: #### 2 477777, 1839426, 8932079, 55490206, 02597223, 3796279 ####[facility] [address] [place] [address] Morphon 01-31-2023 Anisocytosis Ql (Bld) Present Normal [facility] Comment on above: Order Comment: Order Added by Discern Expert. Performed By: #### 2 535379, 7878213, 2967283, 30083466, 90909080, 0768585 ####[address] [place] [address] Hypochromia Auto Ql (Bld) Present Normal [facility] Comment on above: Order Comment: Order Added by Discern Expert. Performed By: #### 2 370856, 9205115, 2461598, 75900294, 53412878, 8139024 ####[address] [place] [address] Morphology Blair (Bld) [Interp] See Morphology Normal [facility] Comment on above: Order Comment: Order Added by Discern Expert. Performed By: #### 2 573600, 2487953, 6043903, 40896271, 59657048, 5068062 ####[facility] [address] [address] SEROLOGYOrdered By: Eleonora Newton on 01-31-2023 HCG.beta subunit (U) [Moles/Vol] Negative Normal [facility] Man Sero U BetaHcg Qualon 01-31-2023 HCG.beta subunit (U) [Moles/Vol] Negative Normal [facility] Comment on above: Performed By: #### 1 4518033, 76234512 ####[address] [address] UA With Cult Reflexon 2022 Bilirubin Ql (U) Negative Normal Negative [facility] Comment on above: Performed By: #### 1 6820778, [id number] ####[address] [address] Clarity (U) CLEAR Normal Clear [facility] Comment on above: Performed By: #### 1 2960955, 75279532 ####[address] [address] Color (U) YELLOW Normal Yellow [facility] Comment on above: Performed By: #### 1 8914705, 26374776 ####[address] [address] Epithelial cells.squamous LM.HPF (Urine sed) [#/Area] 3-4 Normal 0-2 [facility] Comment on above: Performed By: #### 1 5605397, 94862407 ####[address] [address] Glucose Test strip (U) [Mass/Vol] Negative Normal Negative [facility] Comment on above: Performed By: #### 1 6816982, 86010787 ####[address] [address] Hemoglobin Ql (U) Negative Normal Negative [facility] Comment on above: Performed By: #### 1 2392757, 00262949 ####[address] [address] Ketones (U) [Mass/Vol] Negative Normal Negative [facility] Comment on above: Performed By: #### 1 4298207, 64562315 ####[address] [address] [place].plasma/Lithiu m.RBC (Bld) [Mass ratio] 0-3 Normal 0-3 [facility] Comment on above: Performed By: #### 1 4082804, 17865761 ####[address] Nitrite Ql (U) Negative Normal Negative [facility] Comment on above: Performed By: #### 1 4043220, 55254927 ####[address] pH (U) 6.0 [pH] Invalid Interpretation Code 5.0-9.0 [facility] Comment on above: Performed By: #### 1 1719969, 94250557 ####[address] Protein (U) [Mass/Vol] Negative Normal Negative [facility] Comment on above: Performed By: #### 1 1676436, 31656887 ####[address] Specific gravity (U) [Rel density] 1.010 Invalid Interpretation Code 1.005-1.030 [facility] Comment on above: Performed By: #### 1 4903767, 54118332 ####[address] [address] Type of Urine collection method Clean Catch Normal [facility] Comment on above: Performed By: #### 1 0015481, 26316968 ####[address] [address] Urobilinogen Qn (U) 0.2 {Aspen'U}/dL Normal 0.0-1.0 [facility] Comment on above: Performed By: #### 1 2495097, 62128244 ####[address] [place] [address] WBC Auto Ql (U) Negative Normal Negative [facility] Comment on above: Performed By: #### 1 0879856, 73023806 ####[facility] [address] [place] [address] WBC LM.HPF (Urine sed) [#/Area] 0-5 Normal 0-5 [facility] Comment on above: Performed By: #### 1 8338369, 30206929 ####[facility] [address] [place] [address] URINALYSISOrdered By: Solomon flores on 01-31-2023 Bilirubin [...] PM) Normal Negative [facility] UA Auto SS [place].plasma/Lithiu m.RBC (Bld) [Mass ratio] 0-3 /HPF Normal [...] Desc Clean Catch (01/31/23 1:57 PM) Normal [facility] UA Auto SS Urobilinogen Qn (U) 0.0111914 {Aspen'U}/dL Normal 0.0 - 1.0 EU/dL [facility] UA Auto SS WBC Auto Ql (U) Negative (01/31/23 1:57 PM) Normal Negative [facility] UA Auto SS WBC LM.HPF (Urine sed) [#/Area] 0-5 /HPF Normal 0-5/HPF [facility] UA Auto SS eGFRon 01-31-2023 GFR/1.73 sq M.predicted among blacks MDRD (S/P/Bld) [Vol rate/Area] mL/min/{1.73_m2} Normal >=59 [facility] Comment on above: Order Comment: Order added by Discern Expert. Result Comment: eGFR is race adjusted. AA=. Performed By: #### 2 178862, 1749055, 4268957, 47128045, 95303292, 0099492 ####[facility] [address] [place] [address] GFR/1.73 sq M.predicted among non-blacks MDRD (S/P/Bld) [Vol rate/Area] mL/min/{1.73_m2} Normal >=59 [facility] Comment on above: Order Comment: Order added by Discern Expert. Result Comment: Director Of [employer] jose kidney disease could be indicated at eGFR's of less than 60 mL/min/1.73m2. Kidney failure is indicated at less than 15 mL/min/1.73m2. Performed By: #### 2 806983, 1677638, 8748143, 70052903, 09084843, 0567034 ####[facility] [address] [place] [address] IntraOperative Documentson 0 01-08-2023 IntraOperative Documents [id number] CD:127 Normal [facility] Coding Summary.on 01-02-2023 Coding Summary. CD:[id number] Gh0 bWw+PGhlYWQ+XV7MTFGzK23 prOMivJ4XD0bDPD4AFHFRLN ZRBY2LQN0gjSE5CVwzY9Ypl iAv UaxwrBHvPR51TDr8UKW5tKx vFFrxiP8qvEOcP3w3OcCmHB 39tL61CIojWENdAfZ0FwGnh jsgbWFy O7mxXyMujJHiDgn+PHRhYmx lIHdpZHRoPScxMDAlJyBzdH tvAV9wYu3bDNTeOLPkgKcag HNlOiBj z3ekPNTpAXoySH3wjJkaG1B pvHB4APYcs9c5Yg55kUR+PH YkXOP3pTrbUBlyo300UnRoj 5jeUQE0 gVImKCjzIEG4W33wq8M8SEM kBNFpIOE1bVD0qP3pmJwvav ijQ8HaxGAzMaT3MVA5vWZlp L9umKwt zesojA7hNze+W64EPH2EQOP HEV2DZvp8D3FpRaecoDZ+PC 68JVVhXD15hEOybQZmn7sln Hb6JmZj RHVsIUW7oFkfMYssf0DsCLK kH71veUDxl3J2HXJniVxoaI IlXiErxAG7fQ9gJZubsoboz 2hvdzsn Jfcgr0jyft76vH82V25vKVi uWPQyXJR0MYEgYAMvvAyerd 1xpS5tOr3+HPmfo6pet2axr Na5KyTe WMVeocNelXvmGKE9s5FdOm9 5H3MsiPpge8RlVhx4yo44sW Uup8K4mMD6ULzxXRTyjV7lE WxlZnQ6 JPKpBmAyfF18qPPlTMcnSn6 wpOyvhYaiFM0vEZPmclaqCZ RzrW2fQOEbdQXrpCkjAV3hZ TBpbjtm j718ZzCkNBU5DNYnxFRjW8I ofF4pFcOqARPqDPKnZ7AreK NcWCveC185LGerMoP7QOEdq nXhZ0Kw SDWkeYeyCaV1g5S8Cq1Lx7B vnsbaPKG6WLusPTMkEyB2Xt BnSxN5P6TcXge9SXXedTidV L5fN7Sh ZSZsqjehhwhqyCN9OLMzENM baK81kBWzCPmiEz3ty5R8g7 18YXSgJIFshJ40Wq5vlAkmR TBwdCBU tD6rnmqnn6xoacgzArAuWJW hQWk6XUw4RLFnoNfgJwBbLF E0ReO3YGD6hUFeiG6qjSpgi mpytY1j Oyc+W73bqX2eYDX0NZB7bqh zLQHpruTsUB06SJ08S2VqSs wvdGFibGU+PGRpdiBzdHlsZ A8gEoNz k9jdl9SqILzmT8IfZSCxSSj pAlq1LVOyKXZ6tBU8lO4lPI OwTYodx3S9pEJ5S1GppuHdb x5nn4ny JEXbMMmnI82vpXPhm8J6RBY zvWW7SXSxbOvhYjIlvJ27Aw c+PPDfqTqzp3DyRfhbw6axd 7qauEu9 QxUeZJCxztMifQfuKFT2t9Q mWk86F24nLLqqCODgPJGdXF ZpWXBugMuyxv5hrE0bNl5+P GNvbCB3 aYA8sV1tSBUmUxD5GIldU83 2DwJugEQpOrrnp5dgh7mjuK p0HkMyNDHpefMgpTkyXYH3p 5RuWe33 X64oJPlsNGXpTJCnPSSgNFW fsBqvnm2riN7zLm3+PC9jb2 qtpn97yM57xYB+NCRmDOE1y WxlPSdw SSRozD1qDRgbHvZ9RDXaOtU doH32zBVhXUtdFl0kmBglqK vrDY1eWVUrkakbu921PdPjx 2xkIDEw tVPsBTrkXHC5T84tn7U6JHL oJUOoIAX9mTG3kC5uoThxry ogbGVmdDsgdmVydGljYWwtY HbdO257 IHRvcDsnPlBhdGllbnQgTmF dYEk2F5TsPuv3JQKcaMfjVI 3ddHGtWFasZv0ooQpolEoeM I1nHOXf ilyox243FuSfq9joZXTrcUS uPVojBBZ2W28ol7T8TMIxTI AoYRQ7kNS7gQ1rfPhoxuidt GVmdDsg bqZotPqhLFlkUHzjD385EUC xkFptQaYomyPvTLJyuLM0KB 88BW54pQWzp9X6iVB1R4UkC GRpbmct gbihjDW1PASdZEWrxY95Ti3 raKrcSj5vXYJqADX3VRFkaB JrG6TtgL9sTbOoMXKqAVQbM 3RleHQt SUpsL956LYnmQtE0LYKjwcC yJ1ScUSFrzKglZdT0z7W1Je 3OR7O1OZ69ZC18jJCgc6F2k OZ4V7Oe BCUkhjvtylwkzHS8DSDdVNI jpG10Xm1dhUhcXh4vYIIcWK F5RXShnQWhO7FzaP2vQsJvR DAwMDAw Z2ArzJMyBQdhR095JCktAzZ 2EVTchnEcK4ViQUFpwVllEk C3q5K4Gy9OTRv1HN21TA21g YSxe1I6 gFJ9Q2XmCAVbjpldrmuyqKH 2QAHzKANojI05Yd9qtJzdLw 0tCCYjMKB4FFZpwQZoI8Vsj E2cBoMd YHExDYTuS7QffESxHUntA18 1KAxmTvU1OEWplzIlU1HmHN WymQoxIoL8k5K4Uh4EZCEqG N27BQY4 lOS2AI67VE75J6HlXmlotYQ ibGU+PHRhYmxlIHdpZHRoPS tdGRXrSnZmbYggEA3xAm9oC GVyLWNv wOieoEUdWiBmm5zjZCNlPTv tHP7vbKqeG7LooRM3QPAld1 k6Es35Y11yT6FdbVI+PGNvb FO4zIX7 bP7lUzBmOqF6MQcbL144DiF wbVMsUzvnr3fpt2gdaLv7Ad X2RPGfddIgrPjzEIO4t7DuW o13M32z IHdpZHRoPSIxNSUiIHZhbGl frn5mnG2uWr0+XOYhuJB1pC G0pX2sDaNrIwX3IZbfW810J nRvcCIv Vvxhl2gsl6qxgOy4ZaQcFXQ ujqGhaUzhLEB9u5OpRp06K6 VekLyei0GgYcl2ow86rJOyf 2Z5pBY2 L5WlZEOdchqmyXWhqWypMC8 oMAAytvpqLHYclY7dMQYoZ9 j9WtQuHoF4EYpoV5ApneJ2V DEwcHQg YUvyXXZ5D44uw1R7NTAlNBH vBVT0lTY6fN4riKkwfzatiI VmdDsgdmVydGljYWwtYWxpZ 246IHRv iRjaLSVdqW6yEONrtBQqyAv mBT4pFMAaucdzIwITQvMFUE bvISTLBIlYVjUZSM87WW53a GJft7E3 rFK3U4FyBQOqgkorfmgxtZP 0NSGaGXIaoR10kMUxABuiWn 1vf8I7a310RRGpKNPopO59W n5riVlg NDEzgBJJgR6nrgjjc4rfdwu wKrJeYAGnLRh1WXw5CVAsvG xwTiXyOZR1CnM6NTA0uSTkk B8gxEvg nrlbxY6wTqp+MDQvMDgvMTk 5NTwvdGQ+LNNjAFW9zFvuBO vkFGItdZ5oEKDbV3g3HiRwQ gK9AFiu F7RiSYOgabuaQa10wO9qReS pIvI1NGiuB9VgyuG6YQSicQ QeGAclZXK7C39fq3L9HVAxW DAwMDA7 uJE5kW5chYjtpwezbSMmdAd sygJehBveVPaxRXpnC157LF BkdFteXqF9NYyjCDSpHU28V Q71tVJk s2U5iWF9S6SxMGEejwqrcin vvAE3ZMRkJXYujU70kDFgKX kbEh0me3P2k906UZQiKSIku Y76Yj9w pDsxFTUebONXgA6xofxqf4b piewdUhNnSBOgMOv8GTt8XX AjvRwrXaIyYSY9PqT1GBV3d IPthT5i eNpfozcjmW4lPja+RmVtYWx sOW00CH35qIHuf3B5wUJ3Z2 HaLPOnpovhpfsmtCT4ANEoP DUwaW47 tPNhOGavGf2zg4A7y465XED vIWBcaU92Zd2haNjcBMExpU BQgY4vpnqjf5ddlmseAjAtK DAwMDt0 WXx0XSOpuHvsYcOoKNE1ZnZ 9BSQ1jSFsoK0keQxkhqhveP 9wOyc+H6P9lDH0fYXqhIhfa GQ+PC90 yx39F5TzZxpuCjo5PVTjAYA 9gAS1yE8iNTFoJClas6D2rW Q9S4NgllItcf7ze9yhYUIlC ZtqS08f zGVve1D7NUJevWU2XOKrnGx sVyMhvJ96Mxz+PGNvbGdyb3 XhQnwom5bnp5ntlVy3WzLlG SIgdmFs wSybEVS9t1XaJm84K90bIMz pZHRoPSIzMCUiIHZhbGlnbj 4zbF1vXt6+ZOPzqIU1rLF1l W9fJhBe YgR7DUgnE740EjQebTMtIkr zt6kqy9unaDz2ZwWbXWDeit CgzOzrYKT9u6XhAy53K7Rdl Ntim8Kh Kof3vd69rDBwa4F0uKA6Q8Q zGUWvkrmzoISjyAjxRX0dRX YmjaehOHOhsN6mLHTdR2c8D iAwLjA1 OEclT2AlqzY9DOMadDZePXW odQLDnO8uljohz3mrqkkcUm PpFHAxXUx9JJn1VUGjcFhkO iBsZWZ0 LyI2PTW0oQHimE2xbGgqoko ioQ8lPjn+JUk3a6rmoZLqPN 7lmJC3CL49YO21oZEzm2B8h JA0Y8Dc ZYWxpqvmxnnrpEF5USCyMUO riD12Fo6rdJscTf0sCRXdMY F0GSNwlDWjW2EfgK5gJoVcT DAwMDAw T4ZvzXNePOrpI648DRryOcH 6CEQkbfSlE3HgAUZybBtiHg J9m9U6Ke7NDL93IM47JW73h TCjs4R9 sBR0E2UqKNSyyckgdwnhzAO 7EAMeHRKnzJ60Qp8ouVqyOq 9qNHFhPSI4ANKaiFVlG0Erp Z8jSiXi VVMkMIKeC1TslGKhPFrwM97 8SCpyBtV7PUYpriTvI8BqFJ LrgTdaLkL5x1D1Ch1AZf95Z W04BX41 hFPua4F6mNJ6H1NxFASrfnu plahrzIV8CZQlNBIcnE25Fm 1evGozUi8sNKRfJOW9IMZht QYuK9Gl eO2wAdPtTMAkHOJdV3IbpIH yVUypY896RTizAlA3RGZbnp WuW5NlHCGmbBhjLlX8h5P2C j0LGToq gte0B9QxHuegsSW+ST94EJN aOP89hBHadUEqo6wviAx7Su RuKNCqQUK4nQddBViwv7BnD MGdP78y bGFw (more content not included)... Normal [facility] Main OR Intraoperative Recor don 01-02-2023 Main OR Intraoperative Record IntraOp Document Type FT Summary Primary Physician: Nathan POP DO Finalized Date/Time: 01/02/23 14:06:20 Pt. Name: DRISS COPE/Sex: 1995 Female Med Rec #: [id number] Physician: Edin Bermudez M.D. Financial #: [id number] Pt. Type: O Room/Bed: / Admit/Disch: 12/30/22 [...] Role Performed Anesthesiologist of Surgeon - Primary Rn Traveling - Primary Record Time In 12/30/22 12:21:00 12/30/22 12:21:00 12/30/22 12:21:00 Time Out 12/30/22 13:04:00 12/30/22 13:04:00 12/30/22 13:04:00 Procedure DILATATION and SUCTION DILATATION and SUCTION DILATATION and SUCTION CURETTAGE CURETTAGE CURETTAGE Comments Preceptor and room assist Last Modified By: Danny Cortez RN, RN, Sheminith A Cantal RN, Sheminith A 12/30/22 13:47:48 12/30/22 13:47:48 12/30/22 13:47:48 Entry 4 Entry 5 Case Attendee Danny Cortez RN, CST, Yahaira Perkins Role Performed Rn Traveling - Primary Scrub - Primary Time In [...] and tissue Entry 1 Skin Integrity Intact, [place], Warm, and Skin Abnormality No Dry Outcomes Met? Yes Last Modified By: Danny Cortez RN 12/30/22 13:14:59 Post-Care Text: The patient is free from signs and symptoms of injury caused by extraneous objects Patient Positioning FT Pre-Care Text: Identifies physical alterations that require additional precautions for procedure-specific positioning, verifies presence of prost (more content not included)... Normal [facility] Consent for Anesthesiaon Consent for Anesthesia [id number]#1.00C D:127 Normal [facility] Consent for Procedure/Surger yon 01-01-2023 Consent for Procedure/Surgery [id number]#1.00C D:127 [facility] Discharge Instructionson Discharge Instructions [id number]#1.00C D:127 [facility] IntraOperative Documentson 0 01-01-2023 IntraOperative Documents [id number]#1.00C D:127 [facility] IntraOperative Documents [id number]#1.00C D:127 Normal [facility] IntraOperative Documents [id number]#1.00C D:127 Normal [facility] Prescriptions/Work Noteson 0 01-01-2023 Prescriptions/Work Notes [id number]#1.00C D:127 Normal [facility] ABO/Rhon 12-30-2022 ABO/Rh Positive Invalid Interpretation Code [facility] Comment on above: Performed By: #### 1 [id number] #### [facility] [address] [place] [address] ABO/Rh History Checkon 12-30 ABO/Rh History Check Patient discharged prior Normal [facility] Comment on above: Performed By: #### 1 [id number] #### [facility] [address] [place] [address] ABSCon 12-30-2022 ABSC Gel Interp Negative Normal [facility] Comment on above: Performed By: #### 1 [id number] #### [facility] [address] [place] [address] Auto Diffon 12-30-2022 Basophils/100 WBC (Bld) 1.2 % Normal 0.0-2.0 [facility] Comment on above: Order Comment: Order Added by Discern Expert. Performed By: #### 1 [id number] #### [facility] [address] [place] [address] Basophils/Leukocytes Auto (Bld) [Pure # fraction] 0.1 E9/L Normal 0.0-0.2 [facility] Comment on above: Order Comment: Order Added by Discern Expert. Performed By: #### 1 [id number] #### [facility] [address] [place] [address] Eosinophils/100 WBC (Bld) 4.1 % Normal 0.0-8.0 [facility] Comment on above: Order Comment: Order Added by Discern Expert. Performed By: #### 1 [id number] #### [facility] [address] [place] [address] Eosinophils/Leukocyte s Auto (Bld) [Pure # fraction] 0.2 E9/L Normal 0.0-0.5 [facility] Comment on above: Order Comment: Order Added by Discern Expert. Performed By: #### 1 [id number] #### [facility] [address] [place] [address] Lymphocytes/100 WBC (Bld) 40.5 % Normal 14.0-50.0 [facility] Comment on above: Order Comment: Order Added by Discern Expert. Performed By: #### 1 [id number] #### [facility] [address] [place] [address] Lymphocytes/Leukocyte s Auto (Bld) [Pure # fraction] 2.3 E9/L Normal 1.0-4.0 [facility] Comment on above: Order Comment: Order Added by Discern Expert. Performed By: #### 1 [id number] #### [facility] [address] [place] [address] Monocytes/100 WBC (Bld) 7.6 % Normal 4.0-14.0 [facility] Comment on above: Order Comment: Order Added by Discern Expert. Performed By: #### 1 [id number] #### [facility] [address] [place] [address] Monocytes/Leukocytes Auto (Bld) [Pure # fraction] 0.4 E9/L Normal 0.2-1.0 [facility] Comment on above: Order Comment: Order Added by Discern Expert. Performed By: #### 1 [id number] #### [facility] [address] [place] [address] Neutrophils/100 WBC (Bld) 46.6 % Normal 36.0-75.0 [facility] Comment on above: Order Comment: Order Added by Discern Expert. Performed By: #### 1 [id number] #### [facility] [address] [place] [address] Neutrophils/Leukocyte s Auto (Bld) [Pure # fraction] 2.6 E9/L Normal 2.0-7.5 [facility] Comment on above: Order Comment: Order Added by Discern Expert. Performed By: #### 1 [id number] #### [facility] [address] [place] [address] BLOOD BANKOrdered By: Teena Quiroz on 12-30-2022 ABO/Rh Interp Positive Invalid Interpretation Code [facility] BB Subsection ABSC Gel Interp Negative (12/30/22 11:28 AM) Normal [facility] BB Subsection BMPon 12-30-2022 Creatinine [Mass/Vol] 0.9 mg/dL Normal 0.5-1.3 [facility] Comment on above: Performed By: #### 1 [id number] #### [facility] [address] [place] [address] Urea nitrogen [Mass/Vol] 17 mg/dL Normal 5-21 [facility] Comment on above: Performed By: #### 1 [id number] #### [facility] [address] [place] [address] Urea nitrogen/Creatinine [Mass ratio] 19 No Units Normal 10-20 [facility] Comment on above: Performed By: #### 1 [id number] #### [facility] [address] [place] [address] Anion gap [Moles/Vol] 12 mmol/L Normal 6-16 [facility] Comment on above: Performed By: #### 1 [id number] #### [facility] [address] [place] [address] Calcium [Mass/Vol] 8.6 mg/dL Low 8.9-11.1 [facility] Comment on above: Performed By: #### 1 [id number] #### [facility] [address] [place] [address] Chloride [Moles/Vol] 103 mmol/L Normal 101-111 [facility] Comment on above: Performed By: #### 1 [id number] #### [facility] [address] [place] [address] CO2 [Moles/Vol] 26 mmol/L Normal 21-31 [facility] Comment on above: Performed By: #### 1 [id number] #### [facility] [address] [place] [address] Glucose [Mass/Vol] 105 mg/dL Normal 55-199 [facility] Comment on above: Result Comment: If t his glucose result represents a fasting glucose, interpretation should refer to the following reference range: 55-99 mg/dL Performed By: #### 1 [id number] #### [facility] [address] [place] [address] Potassium [Moles/Vol] 3.8 mmol/L Normal 3.5-5.3 [facility] Comment on above: Performed By: #### 1 [id number] #### [facility] [address] [place] [address] Sodium [Moles/Vol] 137 mmol/L Normal 135-145 [facility] Comment on above: Performed By: #### 1 [id number] #### [facility] [address] [place] [address] Blood Bank ID#on 12-30-2022 BBID# [id number] Invalid Interpretation Code [facility] Comment on above: Performed By: #### 1 [id number] #### [facility] [address] [place] [address] CBC w/ Auto Diffon 3 Erythrocyte distribution width (RBC) [Ratio] 14.1 % Normal 10.9-14.2 [facility] Comment on above: Performed By: #### 1 [id number] ####[facility] [id number] [place] [address] Hematocrit (Bld) [Volume fraction] 31.5 % Low 34.0-46.0 [facility] Comment on above: Performed By: #### 1 [id number], [id number] ####[facility] [address] [place] [address] Hemoglobin (Bld) [Mass/Vol] 10.0 g/dL Low 12.0-16.0 [facility] Comment on above: Performed By: #### 1 [id number], [id number] ####[place] [id number] [place] [id number] MCH (RBC) [Entitic mass] 25.3 pg Low 27.0-34.0 [facility] Comment on above: Performed By: #### 1 [id number], [id number], [id number], [id number], [id number] ####[place] [id number] MCHC (RBC) [Mass/Vol] 31.8 g/dL Normal 31.4-36.0 [facility] Comment on above: Performed By: #### 1 [id number], [id number], 1014150, 8883486, 7448904 ####[place] [address] MCV (RBC) [Entitic vol] 79.6 fL Low 80.0-100.0 [facility] Comment on above: Performed By: #### 1 7555667, [id number], 4936965, 0945739, 9228974 ####[place] [address] Platelet mean volume (Bld) [Entitic vol] 7.7 fL Normal 6.4-10.8 [facility] Comment on above: Performed By: #### 1 [id number], 32172520, 2414629, 3801944, 0708960 ####[address] [address] Platelets (Bld) [#/Vol] 264.0 E9/L Normal 150.0-500.0 [facility] Comment on above: Performed By: #### 1 8055741, 94818838, 1935029, 6012933, 7023594 ####[address] [address] RBC (Bld) [#/Vol] 4.0 E12/L Low 4.3-5.9 [facility] Comment on above: Performed By: #### 1 2524971, 15482344, 8819207, 9962291, 8148426 ####[facility] [address] [place] [address] WBC corrected for nucl RBC Auto (Bld) [#/Vol] 5.7 E9/L Normal 4.0-11.0 [facility] Comment on above: Performed By: #### 1 4433224, 12143160, 4659740, 6845497, 7608712 ####[facility] [address] [place] [address] CHEMISTRYOrdered By: SYSTEM SYSTEM on 12-30-2022 Anion gap [Moles/Vol] 12 mmol/L Normal 6 - 16 mEq/L F C Remisol Calcium [Mass/Vol] 8.6 mg/dL Low 8.9 - 11. 1 mg/dL FT Remisol Chloride [Moles/Vol] 103 mmol/L Normal 101 - 1 11 mmol/L FT Remisol CO2 [Moles/Vol] 26 mmol/L Normal 21 - 31 mmol/L FT Remisol Creatinine [Mass/Vol] 0.9 mg/dL Normal 0.5 - 1.3 mg/dL FT Remisol GFR/1.73 sq M.predicted among blacks MDRD (S/P/Bld) [Vol rate/Area] mL/min/1.73 m2 Normal >=59mL/min/1 .73 m2 FT Chem S GFR/1.73 sq M.predicted among non-blacks MDRD (S/P/Bld) [Vol rate/Area] mL/min/1.73 m2 Normal >=59mL/min/1 .73 m2 [facility] Chem S Glucose [Mass/Vol] 105 mg/dL Normal 55 - 199 mg/dL [facility] Remisol Potassium [Moles/Vol] 3.8 mmol/L Normal 3.5 - 5.3 mmol/L [facility] Remisol Sodium [Moles/Vol] 137 mmol/L Normal 135 - 145 mmol/L [facility] Remisol Urea nitrogen [Mass/Vol] 17 mg/dL Normal 5 - 21 mg/dL [facility] Remisol Urea nitrogen/Creatinine [Mass ratio] 19 mg/mg Normal 10 - 20 [facility] Remisol COAGULATIONOrdered By: Courtney Tang on 12-30-2022 aPTT Coag (PPP) [Time] 31.5 s Normal 25.1 - 36.5 second(s) [facility] Auto Coag INR Coag (PPP) [Relative time] 1.0 {INR} Invalid Interpretation Code [facility] Auto Coag PT Coag (PPP) [Time] 11.7 s Normal 9.4 - 1 2.5 second(s) [facility] Auto Coag Consent for Treatmenton Consent for Treatment [id number] D:127 Normal [facility] ED Note-Physicianon 12-30-19 ED Note-Physician [...] In 3 days 01/02/2023 EST [address] [place] [address] [facility] (1) Additional Instructions: Problem List/Past Medical History [...] Alcohol Use, 11/27/2022 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 Never Smokeless Tob (more content not included)... Normal [facility] Comment on above: Result Comment: Elec tronically Signed By: Edin Bermudez M.D.\.br\Date and Time Signed: 12/30/22 13:18 EST HEMATOLOGYOrdered [...] 5.7 E9/L Normal 4.0 - 11.0 E9/L [facility] HemeAutoSS Inpatient Patient Summaryon 12-30-2022 Inpatient Patient Summary [address] [address] [facility] Clinical Discharge Instructions PERSON INFORMATION Name: DRISS COPE PHYSICIANS Admitting Physician: Edin Bermudez M.D. Attending Physician: Edin Bermudez M.D. PCP: CRUZ RODRÍGUEZ MD Discharge Diagnosis: 1:Retained products of conception with hemorrhage Comment: PATIENT EDUCATION INFORMATION Instructions: ASSISTANT IN NURSING - Post D&C, Hysteroscopy, LEEP or Essure/Laparoscopy (Custom); Post Op Patient Instructions - FT (Custom) (Custom); ASSISTANT IN NURSING - Post D&C, Hysteroscopy, LEEP or Essure/Laparoscopy (Custom) Medication Leaflets: Follow up: With: Address: When: Cruz Meza [address] [place] [address] Business (1) Comments: follow up in 1-2 weeks With: Address: When: CRUZ RODRÍGUEZ [address] [place] [address] Business (1) In 3 days [...] mg Tab) By Mouth Once. Comment: Dina [facility] Main OR PACU I Recordon Main OR PACU I Record PACU Phase I Docum ent Type FT Summary Primary Physician: Nathan POP DO Finalized Date/Time: 12/30/22 13:56:42 Pt. Name: DIRSS COPE/Sex: 1995 Female Med Rec #: [id number] Physician: Edin Bermudez M.D. Financial #: [id number] Pt. Type: O Room/Bed: / Admit/Disch: 12/30/22 [...] By: Ligia Bowden RN 12/30/22 13:56 Normal [facility] Main OR PACU II Recordon Main OR PACU II Record PACU Phase II Document Type FT Summary Primary Physician: Nathan POP DO Finalized Date/Time: 12/30/22 15:18:57 Pt. Name: DRISS COPE/Sex: 1995 Female Med Rec #: [id number] Physician: Edin Bermudez M.D. Financial #: [id number] Pt. Type: O Room/Bed: / Admit/Disch: 12/30/22 [...] By: Ligia Bowden RN 12/30/22 15:18 Normal [facility] Main OR Preoperative Recordo n 12-30-2022 Main OR Preoperative Record Holding Area Document Type FT Summary Primary Physician: Nathan POP DO Finalized Date/Time: 12/30/22 14:07:12 Pt. Name: DRISS COPE/Sex: 1995 Female Med Rec #: [id number] Physician: Edin Bermudez M.D. Financial #: [id number] Pt. Type: O Room/Bed: / Admit/Disch: 12/30/22 [...] 13:50 Danny Cortez RN 12/30/22 14:07 Normal [facility] Monitor Recordon 12-30-2022 Monitor Record [id number] CD:127 Normal [facility] Monitor Record [id number] CD:127 Normal [facility] Outpatient Surgery Discharge Instructionon 12-30-2022 Outpatient Surgery Discharge Instruction [address] [address] Patient Discharge Instructions PERSON INFORMATION Name: DRISS COPE Date of : 1995 Current Date: 12/30/2022 13:59:53 PHYSICIANS Admitting Physician: Edin Bremudez M.D. Discharge Diagnosis: 1:Retained products of conception [...] Cruz Meza [address] [place] [address] Business (1) Comments: follow up in 1-2 weeks With: Address: When: CRUZ RODRÍGUEZ [address] [place] [address] Business (1) In 3 days 01/02/2023 Pharmacy Information: You may receive a survey from Tony Leggett asking you to rate your care experience. Your feedback is important and will help us understand what we do well and how we can improve the quality of care we provide to you, your loved ones and our community. It?s an honor to serve you. Thank you for choosing [facility] HERE ARE THE MEDICATION CHANGES THAT OCCURRED [...] severe loida (more content not included)... Normal [facility] PT & PTTon 12-30-2022 aPTT Coag (PPP) [Time] 31.5 second(s) Normal 25.1-36.5 [facility] Comment on above: Result Comment: Para meter 15 days - 4 weeks 1 - 5 months 6 - 11 months 1 - 5 years 6 - 10 years 11 - 17 years PTT Mean: 35.4 (27.6-45.6) Mean: 33.5 (24.8-40.7) Mean: 32.4 (25.1-40.7) Mean: 31.6 (24.0-39.2) Mean: 31.6 (26.9-38.7) Mean: 31.0 (24.6-38.4) Pediatric Reference ranges were obtained from a study by elx Coker al. prepared from 1437 samples obtained at 7 different centers using the same coagulation reagent and instrumentation as [facility]. Currently there are no coagulation studies available worldwide for children to 14 days, and no normal ranges. Heparin therapeutic range (represented by Anti-Factor Xa activity of 0.2 - 0.4 U/mL) corresponds to PTT of 56.6 - 109.0 sec. Performed By: #### 1 [id number] #### [facility] [address] [place] [address] INR Coag (PPP) [Relative time] 1.0 {INR} Invalid Interpretation Code [facility] Comment on above: Result Comment: INR results are specifically intended to assess patients stabilized on long-term Anticoagulation therapy suggested INR?s ?Less Intensive Anticoagulation? 2.0 ? 3.0 Conventional Range 3.0 ? 4.5 Performed By: #### 1 [id number] #### [facility] [address] [place] [address] PT Coag (PPP) [Time] 11.7 second(s) Normal 9.4-12.5 [facility] Comment on above: Result Comment: [...] the same coagulation reagent and instrumentation as [facility]. Currently there are no coagulation studies available worldwide for children to 14 days, and no normal ranges. Performed By: #### 1 [id number] #### [facility] [address] [place] [address] Patient Education - Texton 0 12-30-2022 Patient [...] or cramps. PLEASE CALL FOR ANY PROBLEMS [facility] Progress Note-Physicianon Progress Note-Physician Patient: DRISS COPE Age: 27 years Sex: Female : 1995 Associated Diagnoses: None Author: Art Agustin MD Postoperative Information Postoperative disposition: Postoperative disposition: To PACU. Optimetrix number: Optimetrix number [id number]. Anesthetic utilized: General. Special techniques: Warming device. Health Status Problem list: All Problems Abnormal uterine bleeding / SNOMED CT 0237805679 / Confirmed Bony prominence / SNOMED CT 1894564540 / Confirmed right shoulder Dysmenorrhea / SNOMED CT 387078055 / Confirmed Headache / SNOMED CT 45986285 / Confirmed Microscopic hematuria / SNOMED CT 598271625 / Confirmed Migraine / SNOMED CT 16896461 / Confirmed Nocturia / SNOMED CT 092292528 / Confirmed Postinfective urethral stricture in female / SNOMED CT 3426970132 / Confirmed / SNOMED CT 266323745 / Confirmed Recurrent UTI / SNOMED CT 399913947 / Confirmed UTI symptoms / SNOMED CT 056507328 / Confirmed Physical Examination Vital Signs 12/30/2022 [...] Ambulatory Surgery Unit, and To home ). [facility] Comment on above: Result Comment: Elec tronically [...] days, # 9 tab(s), Refills(s) 0, Pharmacy: [facility] 858, 157, cm, 03/04/21 7:22:00 EDT, Height/Length Dosing, 52, kg, 03/04/21 7:22:00 EDT, Weight Dosing cyclobenzaprine 10 mg Tab: 10 mg = 1 tab(s), Oral, TID, PRN Spasm, # 12 tab(s), Refills(s) 0 cyclobenzaprine 10 mg Tab: 10 mg = 1 tab(s), Oral, TID, PRN for spasm, # 30 tab(s), Refills(s) 0, [facility], 157, cm, 01/23/22 7:20:00 EST, Height/Length Dosing, 55, kg, 01/23/22 7:20:00 EST, Weight Dosing ibuprofen 600 mg Tab: 600 mg = 1 tab(s), Oral, q6hr, # 40 tab(s), Refills(s) 0, Pharmacy: [facility] 858, 157, cm, 01/23/22 7:20:00 EST, Height/Length Dosing, 55, kg, 01/23/22 7:20:00 EST, Weight Dosing naproxen 500 mg Tab: 500 mg = 1 tab(s), Oral, BID, Take one tab by mouth two times a day, # 14 tab(s), Refills(s) 0, Pharmacy: [facility] 858, 157, cm, 03/04/21 7:22:00 EDT, [...] Problems Abnormal uterine bleeding / SNOMED CT 3501735362 / Confirmed Bony prominence / SNOMED CT 1255973259 / Confirmed right shoulder Dysmenorrhea / SNOMED CT 347690898 / Confirmed Headache / SNOMED CT 21116560 / Confirmed Microscopic hematuria / SNOMED CT 048305736 / Confirmed Migraine / SNOMED CT 92889435 / Confirmed Nocturia / SNOMED CT 097204184 / Confirmed Postinfective urethral stricture in female / SNOMED CT 5350621906 / Confirmed / SNOMED CT 383959218 / Confirmed Recurrent UTI / SNOMED CT 237354677 / Confirmed UTI symptoms / SNOMED CT 740525546 / Confirmed, Active Problems (11) Abnormal uterine bleeding Bony prominence Dysmenorrhea Headache Microscopic hematuria Migraine Nocturia Postinfective urethral 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 Normal [facility] Comment on above: Result Comment: [...] Auto 46.6 % Lymph Auto 40.5 % Davie Auto 7.6 % Eos Auto 4.1 % Basophil Auto 1.2 % Neutro Absolute 2.6 E9/L Lymph Absolute 2.3 E9/L Davie Absolute 0.4 E9/L Eos Absolute 0.2 E9/L [...] the: Anesthetic plan. Re-evaluation prior to induction: Art Agustin MD. Initial evaluation reviewed: No significant change. Review [...] q6hr, # 20 tab(s), Refills(s) 1, [facility]: [facility], 161, cm, 03/10/21 11:21:00 EDT, Height/Length Dosing, 56, kg, 03/10/21 11:21:00 EDT, Weight Dosing Pyridium 200 mg Tab: 200 mg = 1 tab(s), Oral, TID, Take one tab by mouth three times a day for three days, # 9 tab(s), Refills(s) 0, Pharmacy: [facility], 157, cm, 03/04/21 7:22:00 EDT, Height/Length Dosing, 52, kg, 03/04/21 7:22:00 EDT, Weight Dosing cyclobenzaprine 10 mg Tab: 10 mg = 1 tab(s), Oral, TID, PRN Spasm, # 12 tab(s), Refills(s) 0 cyclobenzaprine 10 mg Tab: 10 mg = 1 tab(s), Oral, TID, PRN for spasm, # 30 tab(s), Refills(s) 0, [facility] [place] [id number], 157, cm, 01/23/22 7:20:00 EST, Height/Length Dosing, 55, kg, 01/23/22 7:20:00 EST, Weight Dosing ibuprofen 600 mg Tab: 600 mg = 1 tab(s), Oral, q6hr, # 40 tab(s), Refills(s) 0, Pharmacy: [place] [id number], 157, cm, 01/23/22 7:20:00 EST, Height/Length Dosing, 55, kg, 01/23/22 7:20:00 EST, Weight Dosing naproxen 500 mg Tab: 500 mg = 1 tab(s), Oral, BID, Take one tab by mouth two times a day, # 14 tab(s), Refills(s) 0, Pharmacy: [place] [address], 157, cm, 03/04/21 7:22:00 EDT, Height/Length Dosing, [...] BID Multivitamin (more content not included)... Normal [facility] Comment on above: Result Comment: Elec tronically Signed By: Vamsi BLACKWELL, Art Barron\.br\Date and Time Signed: 12/30/22 11:46 EST UA With Cult Reflexon 2022 Bacteria LM Ql (Urine sed) TRACE Normal Trace [facility] Comment on above: Performed By: #### 1 [id number] #### [facility] [address] [place] [address] Bilirubin Ql (U) Negative Normal Negative [facility] Comment on above: Performed By: #### 1 [id number] #### [facility] [address] [place] [address] Clarity (U) CLEAR Normal Clear [facility] Comment on above: Performed By: #### 1 [id number] #### [facility] [address] [place] [address] Color (U) YELLOW Normal Yellow [facility] Comment on above: Performed By: #### 1 [id number] #### [facility] [address] [place] [address] Epithelial cells.squamous LM.HPF (Urine sed) [#/Area] 0-2 Normal 0-2 [facility] Comment on above: Performed By: #### 1 [id number] #### [facility] [address] [place] [address] Glucose Test strip (U) [Mass/Vol] Negative Normal Negative [facility] Comment on above: Performed By: #### 1 [id number] #### [facility] [address] [place] [address] Hemoglobin Ql (U) 2+ Abnormal Negative [facility] Comment on above: Performed By: #### 1 [id number] #### [facility] [address] [place] [address] Ketones (U) [Mass/Vol] Negative Normal Negative [facility] Comment on above: Performed By: #### 1 [id number] #### [facility] [address] [place] [address] Grafton.plasma/Lithiu m.RBC (Bld) [Mass ratio] 4-20 Normal 0-3 [facility] Comment on above: Performed By: #### 1 [id number] #### [facility] [address] [place] [address] Nitrite Ql (U) Negative Normal Negative [facility] Comment on above: Performed By: #### 1 [id number] #### [facility] [address] [place] [address] pH (U) 6.0 [pH] Invalid Interpretation Code 5.0-9.0 [facility] Comment on above: Performed By: #### 1 [id number] #### [facility] [address] [place] [address] Protein (U) [Mass/Vol] Negative Normal Negative [facility] Comment on above: Performed By: #### 1 [id number] #### [facility] [address] [place] [address] Specific gravity (U) [Rel density] 1.025 Invalid Interpretation Code 1.005-1.030 [facility] Comment on above: Performed By: #### 1 [id number] #### [facility] [address] [place] [address] Type of Urine collection method Clean Catch Normal [facility] Comment on above: Performed By: #### 1 [id number] #### [facility] [address] [place] [address] Urobilinogen Qn (U) 0.2 {Aspen'U}/dL Normal 0.0-1.0 [facility] Comment on above: Performed By: #### 1 [id number] #### [facility] [address] [place] [address] WBC Auto Ql (U) Negative Normal Negative [facility] Comment on above: Performed By: #### 1 [id number] #### [facility] [address] [place] [address] WBC LM.HPF (Urine sed) [#/Area] 0-5 Normal 0-5 [facility] Comment on above: Performed By: #### 1 [id number] #### [facility] [address] [place] [address] URINALYSISOrdered By: Courtney elizabeth on 12-30-2022 Bacteria LM Ql (Urine sed) Trace /HPF Normal Trace/HPF [facility] UA Auto SS Bilirubin Ql (U) Negative (12/30/22 8:53 AM) Normal Negative [facility] UA Auto SS Clarity (U) Clear (12/30/22 8:53 AM) Normal Clear [facility] UA Auto SS Color (U) Yellow (12/30/22 [...] AM) Normal Negative [facility] UA Auto SS Grafton.plasma/Lithiu m.RBC (Bld) [Mass ratio] 4-20 /HPF Normal 0-3/HPF [facility] UA Auto SS Nitrite Ql (U) Negative (12/30/22 8:53 AM) Normal Negative [facility] UA Auto SS pH (U) 6.0 *NA* (12/30/22 8:53 AM) Invalid Interpretation Code 5.0 - 9.0 [facility] UA Auto SS Protein (U) [Mass/Vol] Negative (12/30/22 8:53 AM) Normal Negative [facility] UA Auto SS Specific gravity (U) [Rel density] 1.025 *NA* (12/30/22 8:53 AM) Invalid Interpretation Code 1.005 - 1.030 [facility] UA Auto SS UA Spec Desc Clean Catch (12/30/22 8:53 AM) Normal [facility] UA Auto SS Urobilinogen Qn (U) 0.2381760 {Aspen'U}/dL Normal 0.0 - 1.0 EU/dL [facility] UA Auto SS WBC Auto Ql (U) Negative (12/30/22 8:53 AM) Normal Negative [facility] UA Auto SS WBC LM.HPF (Urine sed) [#/Area] 0-5 /HPF Normal 0-5/HPF [facility] UA Auto SS US Pelvis Non-OB Completeon [...] RAE Technical Comments Transabdominal Ultrasound Performed Normal [facility] eGFRon 12-30-2022 GFR/1.73 sq M.predicted among blacks MDRD (S/P/Bld) [Vol rate/Area] mL/min/{1.73_m2} Normal >=59 [facility] Comment on above: Order Comment: Order added by Discern Expert. Result Comment: eGFR is race adjusted. AA=. Performed By: #### 1 [id number] #### [facility] [address] [place] [address] GFR/1.73 sq M.predicted among non-blacks MDRD (S/P/Bld) [Vol rate/Area] mL/min/{1.73_m2} Normal >=59 [facility] Comment on above: Order Comment: Order added by Discern Expert. Result Comment: Director Of [employer] jose kidney disease could be indicated at eGFR's of less than 60 mL/min/1.73m2. Kidney failure is indicated at less than 15 mL/min/1.73m2. Performed By: #### 1 [id number] #### [facility] [address] [place] [address] Office Visiton 12-05-2022 Follow-up visit [id number] Aislinn Cope 1995 F Date Provider Department Center 12/05/2022 [facility] WOM None Chart Close Cosign Required by: Opal Ross MD[MONGD] No family history on file Level of Service:88175 [facility] OFFICE/OUTPATIENT ESTABLISHED LOW MDM 20-29 MIN (GE,GC) Reason for Visit and Comments: Blood Pressure Check [299] Normal [facility] Progress Noteon 12-05-2022 Progress Note --- Attestation signed by Opal Ross MD at 12/05/2022 3:19 PM [facility]: This patient was seen in the [facility] by the resident. I reviewed and [...] weeks (around 01/02/2023) for Visit . Normal [facility] Progress Note Vital signs BP 127/87 Weight 149.2lb Pulse 106 Temp 96.7 Normal [facility] Coding Summary.on 12-04-2022 Coding Summary. CD:[id number] Gh0 bWw+PGhlYWQ+AP1LYVRrW13 eoZOquU5SA5uVTZ0VQDMJZQ IYZA8XZE2dbRO0LHmhH9Udw iAv EucfzFSnJV34OSa0FLW1hCm qYOsaaD7fdRGyB8c2QwVaMZ 00uB46USfmVPZxEnU2BsXjs jsgbWFy S3ahShKkxTAmTju+PHRhYmx lIHdpZHRoPScxMDAlJyBzdH hrSU0pUh0oYCJrVCWjiHjpt HNlOiBj t4tkYTGeGLwzSF2knVrlS8A wqCL8JEHje1f9Mj63gSN+PH GtMFS8eExjZZifp885OpEop 5oiFEK3 qBHqUBznQUP7S73dv3K2HZM lLHAlNZK3dZH3sU0keSwaxs knV5MdiWCmGbB0HEE5bFWzp R6cfFxe yelolV6sVwv+M79BDL8CJFM YHZ5CCtf8Q7JxAyyfrSS+PC 52DXLfDL74zMNvvQDdg7jyo Hh8OhUa AJVqVBN1qSvaPNqwa6QhPVZ fH86mqMVkd1V8XFQwcVexiJ IxZsEzoSB8pO0iVYtzhmzsw 2hvdzsn Jpvyt5almy98fB01Q08jBEq zTOOzHCH0ICTpAATgqTqwux 7ipL5vPl2+XOfuw8nnw0lyg Hx5VrDx XLGepiBttTahRLK1f5VmSk9 0W5QutBhjt4MhYtp9iv67eQ Jps1J1qAD2XKjsFXHjlS4cU WxlZnQ6 OQYvOjUfiA74rZBiUNosJc5 hcHdpnEmkRE0eWCMnxvqrPB NjlI2oPGFoePTvhAylXW7rO TBpbjtm p439XkRoVGD6MIRyuWDkF2M guT2dZgAzTZOfXTXaW7JjdW XoZAgvK594EDgoVzI1ABBlb pWjB7Zo FJEjzLfhJmX7e8Q9Nn3Sq4H qxbtlXYH8VBheRYNzJxW1Re BeEnF5S0EyQhb8BVXluBpyB A7kG2Uw QLYqseeyvwmbmIN5NLFnSQH kbQ86mAQyIJwzVp2cw3C3m4 19DNKaSSJtlY08Go8pySffJ TBwdCBU yD8zeyera2bjderqBiZqFSW rDNq1XAn6LJRgzWgaDqByTT G9SuN1ZNO4aDEuhY4crZssr jhekY0b Oyc+I75rkD5uWCQ7EEP7ark fGPRuufUgKV91LP68O6ByZg wvdGFibGU+PGRpdiBzdHlsZ R9kAfJu n6owv1TzEAchP5SnHMPdUBb xRpj3JNOyTAG8kVG9kK4gWB WtGUzio5L6uFV3F9FhbhMsr c2uy9cl DBNwPFgrP65mfSIul1X3CNA bhBQ5RDUjtTsiIsXugO86Jo c+YWKlwYzhj5FgHdvjv0nzs 1wzxVf0 YpXtCQVqrkGixLypVWF0e5V qIo15P67zKRbfSBPeBEZkNH ZeMIRbwGmluf0ygD4oFb4+P GNvbCB3 zVJ9tS0sITCjGyN9JIwtH60 5NgOihBTrLyjkl1niz7pqqE d1PtJxSTEevyEedTskIZR1b 7GcBo18 M37kEEtvHLVxJXHvZLUlUIW ljGyqcp6erG0nQu6+PC9jb2 ewar95hV42rWY+RSNzFAY2x WxlPSdw DIPmbE0wVOkvFqC2ODEuPuL liO58fKSsQQzmIk0fuRcgzL sjIF3hBQMenfxgv130TnEqh 2xkIDEw rKJoBNviVNY4G93qy0M0BWO vVHPsXZJ9nHB5lS6jxBmbzg ogbGVmdDsgdmVydGljYWwtY LbaD404 IHRvcDsnPlBhdGllbnQgTmF tGLv7C7CySrl6RFJcwUeoDC 5ilFWnJSonCe0hcUrxuExsU D1rLNNc mpakn092KqKxd1vgCXMdpKL nYCutMHP5F24lp7J6MKTsRZ HnMQV3bPW8jY9auZihqlslg GVmdDsg ciZsaTuuASznTWjzR325TYD huYzwFaSfvsFwGHMhaSN3LD 18SD67gUXxg1G7mEC9F9PtH GRpbmct jkhirQC9SXRxNKTugC48Fp8 gbTwqFy5oAKRoQAW8UURknC TsZ7GniC6lXrGyGORiSUDnP 3RleHQt DFovQ494TFqwWfL2MLFwcjK mY5LrTLFxrTphOdB0y3Y0Yc 8XN8I9VO79IC81oYCcw6R5n KH4P2Jc LEWymffinanvbKT8JTVdOYK veR18In8teGeyTh0xENEuJX V4CXDylGLfX0ExuC1sUeTiQ DAwMDAw F0FnfYRcONpvZ019GCsoVjQ 1XQKznuRnI6VzNHRswJjqKy H7b5X0Ja9AKVl8TM96EH34j DZbn2L9 kLR7A0GyJVQtbcnxzlwdiPV 8WXZnCJNyfN96Dw5kzNocEs 6zUPMgLLY2KZIwrOTaV2Ypq L6fEkPl JHFlQVDqD5JklBXwVOnzK82 7KFbmIpQ1WXPdiwVgJ8RvVK JdnDuiYeP1y3W6Om6SPNTfI L34CMT3 gDI6NE21SR37N5EnQlzqpWF ibGU+PHRhYmxlIHdpZHRoPS rcOTRdUlWpoRjrDL0xWc8cC GVyLWNv kDxdvAKoUcMbu6tiFGPlVDc tBF9yeIdwB1ZseMR4YBPct5 g9Qp93C80fY4DhuFA+PGNvb YX7uMF5 sZ5eXaCsEbS8ZMvoH758UgU mfKGlAiawy4hhs4griBh9Zs E3FIMkueWnlAqhOOA2g9UrS u49F80t IHdpZHRoPSIxNSUiIHZhbGl sws3ajC0pPl5+BQOevCX5pV A4fI9lCyHaHkE3JWkpX846N nRvcCIv Rpgrx3agi6zdvAl4TpBlLFJ nmqBeuIbhZXZ8b4IaXd62R2 HgdOqhu3WkYbz0rv50zWOfq 2A7aDB5 M1VqUCCaudhnvFEqwTxfBM7 mOONpzjobUCKleZ4xHZKzA3 e1UzObOtJ1PZblC0CiqyJ2N DEwcHQg LRwhVEZ9Z74jh9M2LDYpEDI qKFL8pMN0mU3lzVlnrszpoS VmdDsgdmVydGljYWwtYWxpZ 246IHRv tDwqYQBviV4wHDByuVBkhUv hWI8zKPWgareeXnAKMdPFVH mcWECSJSrXAsZJZI64IV82o GOsl7F4 aZB7B9ZhGCMgvujhsvrntUU 5DYRhMWIqfD61gSVkXBpeLd 6jf3U8a862KTFjCBLcxW53G s3nnBus JBPgpXYNkT3atlelw2pxsvi yMuJbYXZkHNd5ATg2SCTwcG ezYkUsYFW4TcY2IFO9zBMrq A9vtAwa pesmnN4iHvg+MDQvMDgvMTk 5NTwvdGQ+ISUwXUP1zUlfAY saXTZpcI1dJJVmX9y7OgNkX xD9SZyg M3GgZGLqbiwoMx35iA2tEnW jJsN2LYdbS7TqwvM0GVHmeT UsPUncVEM2G64yq0A3JGTpM DAwMDA7 sBC2kP4zgValhzvqwPNhjFl oekGbqBhiWFabXMesR454BO HonUzcCtB7ADyjXTWvRU36U I07qEOd z6O5iXE3H0GhUBUkbpglswg vzXO5LXLjHEBshW89jNDjVA giLv8iq5D6s977MXAqPWVgi K64Ys9a xFjcLSFpfDYKpD1tbchox8n einaqUiTeNTIhQBc0ZMb5HF IpkUheCvVlDUE5JmV3SOE4v FJfuG4w tDkfqphhwN0yDjl+RmVtYWx pDR12YB90yANfr2V6vUT3O8 SqGOKfdpqgflsmtGP8UMGaW DUwaW47 sXMvWLfgSd4lo6R1x680TZJ uCUUwoI62Ka4qdDqbWCRvhE IWwU6xdxdag3csamzoAtIwQ DAwMDt0 LAa2RUQkeGvwKtMzYBG8CxJ 7WGL3tFDclJ0ddWgyggyypD 9wOyc+X7BvFIYcPBiqZT52V S45Y8Hc PjwvdGFibGU+PHRhYmxlIHd pZHRoPScxMDAlJyBzdHlsZT 8aJx3xOAEaEWLbsIfwbWKlC kYpq9lz WHSlOXrxVB1laPhzL3VubBV 6BNSue0p9Kh90D07cX9PibK A+HGYriLY3sLF5iV8tKyNrJ xY4QPlj X325ExIgdNTkOhvxc7sam5g cmGz5IuPgZMHmeyJadUzfOP X6z1KgLq72P99qNSzkVINdS SIyMCUi OKBnrVitak0dhM6jWm1+PGN faZG0oJM1lG7xJjApVyD7UU sdA376UfEjxRXbZeyuS48nB 3JvdXA+ AVFwSph5MVWujArjLF2nxAQ sGLgqKy4fHXP2CbAnTjSvOR deD6IeRWKazikibsaquEY1V DAuMDUw zQ11Wm8nmOaiLb2bPYCrMGZ 8FEJmxUDgE7ZliB7wKcOoWW KjWZXoB6EhuPTqFPtpV554N GxlZnQ7 KUZvkaZcH7GyMLOylVugDvF 8b6J1Fx2OpRqcnBEsWV0rCh NqFKl0Z2PxBqw9USMjzZjxP W4mkASs GHriGz8mkEbggTbuLO1sGLB qlddav356KyKma0ftUKBmoC MoRGlfZQM4C98qw2C4NXAoC DAwMDA7 qJU3yE5rpYzetipirDZavOv jvtSvuPwxTJktZNgiU853TG CbmJvfDlUSZfu2O2CoMgq2P CBzdHls CS7xkJWwNYesSd2edYrbhNt vJB2aQNHxbwbix766GyZhh0 clZQOwiOQwBGrpPCA6Q56cu 3C3GQMx UDWwHTQ5hRN7rC7ekSsbmub gbGVmdDsgdmVydGljYWwtYW wnA953CRHolUdeMq3YMho4E 2RyTdv0 AYTlwMqtSC9dpGEdCZkcPx7 quTysjCefZZ7gGXOibwbtq2 28DrUkq2bqBUNukVQxXGgyK TC5H22e l7J7AUWgMWCiUDI2tNY1nA6 hbGlnbjogbGVmdDsgdmVydG agHMbzEVscU001OQHstMjsD lBheWVy OjwvdGQ+OE78ll32V2EkGxp gOuu1NMOlSPQ2jUF5jG0nSB PoCRmfm8Q7oBL7Q8YavdQib m8hc3ih YXBz (more content not included)... [facility] Coding Summary. CD:[id number]:[id number] Gh0 bWw+PGhlYWQ+DJ8WVHZyM10 yhGVloT9TZ5rLRU2AHJLYYC BZAO6WKY1krKF9ZVmxS1Rwq iAv TgrakQCjUI17HDf7IWJ1pNm sETqatG6eyHKdN6t4IeBuGS 77rM05BLyuPJZhXgO3DrZku jsgbWFy T4kfHjLobDJoSgo+PHRhYmx lIHdpZHRoPScxMDAlJyBzdH yxVH6tTk7yAMRgDKKgbLlqi HNlOiBj c5rfJQErBEvnVS8zhJtoS8C toBO1EHRjt6r5Xt18lJF+PH NkZQD9uNreBJfdp738MgHll 9otKVR3 qYRmUAaiVMB8C02by1K6HTL sCTJmSZN5mCN3iY3yeBzbuv wmI8EqtLFuDpB0SFF4cIUlb O1prWak jjohgC6tQsd+S85NSQ8MFYZ YGN4YFqv4U4YqWquepSI+PC 02ATDoCR89nTQexPAlv8vwa Gm2KkPi VLWqIGE8nIgiLFspg6TsTSA dH29xkQNju3R8YNYhgXzihC YyByXeoZS1yD3kEQbolasly 2hvdzsn Htdir0zlxf99bW26F03rJSg jPIWiKAZ9CRPvLURywTwkla 0afF9fMi3+IHmqa8lpy4rxr Jn4EbMi BZYxynUszCmnVMH2k3YzGo1 1R3QziNaxi1DzQkt4fo20xD Vlc1B8eCF2YLpmGSKzpY4yX WxlZnQ6 LUCsIwAmyV89oPNoLIlxYj5 szJjihHzsFE3eFONnrpyvDS QehY6dSLFnfCKwdFluTU7eN TBpbjtm f410RdZbJBS8TLAorNBdB0D baT7lJgMvYGDeSFRdR4RmeX OxDZuwY989ZUquZcS7RUGrm eKdG8Qy KYGkfWzoJsF0j0S6Ff1Ca2S gwikvWVZ5IYhvMOAaMrC6Lq TqGrZ1Z9IuXvc7EKVpwHxcH C2sZ4Lp TCCuanarfqmrwXU4YHPtABK jlZ60qUSkOJzrZh1ap1Y4o2 32CJYgLFQxaS07Ms7vwMdaJ TBwdCBU rH7odogis8ykbijkOjCpTIM cZBb7DWa1MJOdgSuvAyFvXU O2EkB0EWF8yRSylN6arTuxs potfU7v Oyc+U81hgQ6lYZH4MAM2hdx vTEBnriGjIC95PB45X3CuAu wvdGFibGU+PGRpdiBzdHlsZ L0yHiRk f5jre5AmSVpoU6DqFZKpILu jTzd5HVVlXXU5fQT7cK8xLL GaHJhov8A8iVR6J8NbcyMby c9hs3na GFFtXEklC18zkCLrp7P1IOI elYV3PQZnnCwjNgQelA09Aq c+OGJhwQisu1QbUbjko4ahx 6eviKg7 MxPmPSMutzTkfCcdUBT1p5W kKv72W18vJMzjCEIfDCDiYN BbLGPemMkuco8dwE1vWq3+P GNvbCB3 wII6oC7vHXHuUsN4XSlrK58 3HeVhwZNqSpglh2snk9qegC h3PzPwVTGtyuUffQgfLCN5n 3LcAw86 K60mWMpyPYQeFKSbXJJaYYG gtOjhbv9eqZ7lLo0+PC9jb2 tdky55hA05eAM+MBOcPLM4a WxlPSdw CIRmeD0yKQhoJpI4OPViZpM gtX84vPLrBNpjYd9fhRxfdF lwVR8vOHSbglcwi692UuHgi 2xkIDEw aSMcVMcrVIB8P56qp8J8FSS yOOEuYVA9eVF7hE8uiNzbdl ogbGVmdDsgdmVydGljYWwtY GgvC848 IHRvcDsnPlBhdGllbnQgTmF oTIb3O7UeTax4JVKduQxqFE 5dpKGkVQzwUv3zbIaesKqhU K3dJGPb jscsk700BgPfz4kiUGYcwON zSPxvLOC2M31ev8Z3MYPzNO LcTMR8hQW2rH9oaOuisulkg GVmdDsg axOdaCnxHYgpZGlnA077ZZG tlUipYmCzxbJaDKZzjZE5GZ 14UC88lAVxd9W6aEY0L0VvO GRpbmct jkvbsQA0YTRhGTRrzN87Xf6 uoApqFl0xVNMvHUW7UOMurM TiG6WamX8wOqRbRFYwAJZvW 3RleHQt PNucG860HPkqVxR2WBYjzxV lW7JnRWPbdUznRyW1f1Y0Qq 5FI9O1IS34YI24iWQdo6Z7i CH5V8Tp BPZlaxwjpgunePE6EIKtSAM saK23Mz0zlGhhUr9vQAHxIP I8XKMenYEoE7RcoT0qVgUmW DAwMDAw E9YmkEJtCQrrW889SSmhTpJ 9PQXlnnWpI6TqOWDyrYejFx T5c0Q0Ot3OFIz6TT03FQ02r RRsc0V7 uYS9A5JhPTMjyfagrvlofRM 6FEUzIBFjvO10Fr3qqUejQb 1gURNrJPP0KJYpdFXcN7Pli L6eUyTu VXRxKBUlY0BcwEXnPQamV10 9NVpkYtO0KENeweVuF5KaPD JbfNysZtK2z1S5Kv2JHWZbB W26RPY2 zYD4NF36EQ50F9ZrEnvhmJO ibGU+PHRhYmxlIHdpZHRoPS iiDSDlGxRamRabUM0zVt1zU GVyLWNv yKlrrISaHtEgv0tpRQLtJBf cCW0zxPsxN6SzuAC9LYMvi8 n8Ds20O24wU8LknJT+PGNvb CB6hDC1 xJ0iAtXlHsS1VDeoZ223GdB ezKUdXjszb7joj8dfcIv9Vy K1WVJwdrKutKliUWS0e7GxQ w11A50a IHdpZHRoPSIxNSUiIHZhbGl wnz3ewV0dQw2+NXFsiLZ8vX U0oA9pXzLlKgF3DGqnY105G nRvcCIv Yxwwm9ecf0tflZy0EzGqDXU pzyHyvVjeHQR7m1JbKw89Q6 OifWtwf3TfFmn7bu08hYVcw 9U5kJK0 R1XzOHHrvqinqHIgfBbjSZ8 iAPAlktheBTItzR5eTUVlA0 i9KsHmQtK0HBrkF7GxgsE1U DEwcHQg TTxrLCZ4Y26da3S8BNWaIXR xNGH0bEP7bR4qvNuvzmoykP VmdDsgdmVydGljYWwtYWxpZ 246IHRv yXdyQPAaiV9cIRZtpMZpoNs qWM7mOMJwkszjBgKEHmELTQ zoGWJTNGzPHtSSNQ40OU20m KGtj7D0 dDK0I1AcVKYbrzpnsbcshSL 1RHGwIJQyqC54jXWeTRupRk 3sg5Y6j365KNBpALMtcY66H z5fzAqr CGLhnYKUoW9uxdsjr5iqqyd rZbFyFKXnTSq1SMo5IJUbzN alBbOaCRG5OrR3WLJ2gYUon F2lfUsk degqdF2oVar+MDQvMDgvMTk 5NTwvdGQ+TPEwMNN0cXzcWQ ahKGSbcO9dZMXqD8s8FnLbX qT8SDge D6QdGMJtdttcCx61kN2hLbC qKiJ6FOlpP7MztdZ5RXPkzA GgMHxgZNC2V06tw2C9ZJNjD DAwMDA7 tAM1cJ9tcEhaunbuuYTgdLh xtgPgwRxzUUvxPOspT646YC GslLcrAvL6UYtiZCJyNZ27G Z81sHFz m3T5jDO4K8BaUWAyilrayoa ooIL6LLXjHZFvlA72wOEnHL xiGj8dj0W6c265WVImALSgc C08Cu2i pMcnCKXsuWRJeE9acnzmq8n ctzrcAzGqFQMpWQf3ESt2QT ZmzBfsTjVfTZQ9ZdQ9QZS9v VBlxE4z jDrivkeniS4gOci+RmVtYWx qLR73VH22lJTws2G0nFP1J8 TwAJQvwjgpstpetLZ4QOLzB DUwaW47 sKVvJVmnRw6rs2N3y364MJI rIMEziI63Is2qqMhaTGOoyO BMzE3cffdsv9rrtanzFkKbP DAwMDt0 SDd5NRYzdTmySpLbNRX6QbS 5DZI1zEFaaH4epVcezarilF 9wOyc+S2XuUEAfKUvgYZ26Z G92W7Fe PjwvdGFibGU+PHRhYmxlIHd pZHRoPScxMDAlJyBzdHlsZT 3xZt8fKKRfIAMreUxlcGPsS dNfa3ya NHAlJVaxID8edHymZ8QtkCM 9VGZzo2v7Vo58N79nU6JryR A+LEQvdBX8gRG0kL8cFlKzH yP9MRzx R204HkTbwERpCckwd4jch0d rbUu6JiShLLUmtlCgwNcwVX X6v8QuMu00X75qHGlkCORfP SIyMCUi HJRanZdpwx7ltF7eLh7+PGN ptSC2jUD9oY7bTkOnHiL8ZR qqX835ZaKufUWuFkccX43xS 3JvdXA+ NTSoRkg7PAFbcVjyIL8vqEQ sXUlwRj4wGER3GnOmLxOxZC qyH8YyXXEtanquafcnmOF4L DAuMDUw hL59Ig4xlAbaEc9cSUXjCNI 7VITqbMQkK2FcsK2vIlOaXL KjUZBuW4YhbWQzSTaeU533P GxlZnQ7 SKIinqZwA6LaJYDgkLcdFdE 6o5T4Ox7VkBkmnLXyOK5cZf AzPYr2U9LnBel7WKRfrGxmU K2cfSWy ZQkqTk8qxFryeGpjOB9sQAS xihwyh635UqQbw7wzKTRjuW VzFNpuSXW6P48xl7I7BAFoB DAwMDA7 cAP3tT2iaGavebeegQUduKv ywyPisVdvYGeyUGhmB793QZ NfhNrqYqHFIid9N4CmQhq4I CBzdHls CV3vrLDcVBmbPm6ibRtfiTh mYA5vPEMmscdrg046NvIjv2 ecCMGsyQPsPFrvCVD3G20qt 1U0GSVb IGBjPQQ4zXR5bK0awYfqxto gbGVmdDsgdmVydGljYWwtYW yfU550YGNimZamQs0GZsi2N 6MdYkf6 BIDqbVdiLH0ohMErPCaqKi7 vcSmypHicTF6pAEQjpakbj5 08OwRoy0wwWWLypVXvCBgdE FR7I19p i9D1RSMpHCUlLWM5mML0eO5 hbGlnbjogbGVmdDsgdmVydG ybXPxmGSveL988EJXvqMzxC lBheWVy OjwvdGQ+RK66wl01V2NoThq xDot6AFBrWIP9bQO6gI7fKM SyEGwql1A8tAB7N8OficVix c4cz1xa YXBz (more content not included)... [facility] Coding Summary. CD:[id number]:[id number] Gh0 bWw+PGhlYWQ+CW1DNZQjA53 fzRYowI4CM3rSQA5GFSBGON DWWM0RKZ6ahQK3GZitD3Kmp iAv GytqsDUsEL35OTs9BOO8sHo nIKeouJ8yvKDiU9s5IxUxLZ 12xA00ZKjtDEZaTcA0BsBxk jsgbWFy Y0woNgAinJNvZiy+PHRhYmx lIHdpZHRoPScxMDAlJyBzdH atBB5uUg6sWALeVAGrzNren HNlOiBj s1voEQNsJUhqNT0giVwxS0A doNC8XDCld4g5Wo37iCB+PH TvEKO2yNdtCEkyn783GfKof 7vgZNJ9 sWZvMWdnLWF6C61dp3L1DJR gRMWwEBM3mXK2xK2gmUxenb deU0SlwBOaTxP5FHW4hNXwh E1vgKbn xinarB4rXlt+V80ZWY5WTKC BHT1IRqo1U6DlRvzwfOS+PC 49EZKpNL42pSRufKQae6rbx Up0JiDr AVBcTOB3kHqkKOdeg4IcATC wR90aeFIlp3L0XYXjiQuxuQ ZrEqUbrFQ2nG1aLGuclbwxp 2hvdzsn Zjpyp2bsnq12fL71C35hHMe bEZNlLOP2LYVoHXXfyMsaim 4mvK2iHy0+REicx9xrl0kqm Dq4RcAy NKZsrtIupNpjCZR4w1BsBq7 7H5NvcHfsg9QjTlu8dn90gD Ubu7F0dBR3MPhiGCLvhB6dE WxlZnQ6 ZDJiWqLhzN47zAKsNDqxKk9 xtOpceTctSK7nGJHbdtdbRM JqyS6cCSCunGStaDmtCR7eG TBpbjtm k180XqHgNST0AIMnmBXvE4V qxJ9yMjLpZSUjZMXaN4WlmT TdCEpiB804MHywJdK1DFYdx qYnW4Al FQMauFgtSiS4p4Z4Ge1Bn0D dvhmbNQP9SIwcYXUyMpM9Zc CyMzU2T2ZzHqh6TNOwfFpeL Q9sA6Xr CMRqrudylcxwaKF1CMTvOMY bxL75jANaXKgmAh5jo3E0g8 45KNHgIJXvcD99Hq0gnDmkJ TBwdCBU dX6hrdjig7hoenirTgCaEFD iRVu8XFb2MMCnnGyeTtOaDQ Q8LtE0XDH7rTSnuE2onOsjg qeinR5l Oyc+I25fzR7dHQK0NKU1pfd lEIGugmJiBC16RA66L0FkMk wvdGFibGU+PGRpdiBzdHlsZ R7aPuOd e8lgo7YzCGohA9QvOWCjQKo sRbc2MFZiGGP0hRH6qX2nAP OyDDlep6Z3wXM0U2TbkgLog h6ow0nt OMKrGLddL72cuWOrn4W2XUI ddVU3TYCmbGujRpWjxH98Wz c+ECTrqJoaz1HfFvgcd2odk 5jnuZy6 MvZhFSBjteXoqYitEBP2f1P rNb02G00rMHbdHVXaENFbRR TxIHVyiDzeav2eoB6hQt9+P GNvbCB3 eFU2eE7tPYUkKyL4NHikM83 2OqTgaADhHydyz8bct5vgnS j3MpGhPDKjjlIwnHpzUGY4r 7EoMr83 V54pKJvmNOYxJECtPEYrMMS ecEbnks4yaX3wEc0+PC9jb2 kbre27vA64hRV+YJZjXNL0d WxlPSdw AIKneM2mSBmvJbS1TLYlJoR umZ13oJCySChiSp3ijJkiwG lqCE6gCEVgvmscg566CmNpo 2xkIDEw bBFoCGouVWJ2U79sw5D5TVS gRDEmEZB8hVZ2aE4ubQcmxw ogbGVmdDsgdmVydGljYWwtY DueC649 IHRvcDsnPlBhdGllbnQgTmF qIBy7G3JnMjy2AZRmhYnpJT 0plTMaABmhZi2xtXbkjArfK H0rGVCt kevsx582OfTwk9ttMXRrcXM nTXnySMN9S99zl2X6BVShFR XfNOQ9tDO4lU0clJergbsag GVmdDsg yiSliXsaQHkvNMzaN326ZGK awFghWvCcimPhQQSpnZO3ZY 84VJ32pZZob5I3pXQ5P3FpE GRpbmct tvuwvKR7EUKnPLTgqF02Hc6 xkVlaEr0mABPtFPL9OCBgvB KzO2QdjJ7oYyCxILXfCTFoA 3RleHQt XQosB388GRrePfJ0BAOwpvH cN3SjYIPqhXyvPfF1m0A5Kx 4KH3U6CE49PC17xEGhk2G0w NR6U3Iy UGQzoltengmbfLV9HUDgTAR heZ37Om7xaDwiIm2aMIJyBX H3FAQyhYXeB0UgsJ5uJiZrL DAwMDAw X9KwhRHuXIwsF023UMyxJqF 6PDWzseKkQ1PgSJLjpVnnNb P8m1H7Mm6THQk3YC34WP57w BVgr4T6 wFK8F8TuQWXhgkrsyfalxLK 1VPRzDKNioN87Ct4zpMynJw 6gNLOqMMK9ERYofTVgP0Bfy V7gOxXe BEGoCVOvQ6LhyYQtZYptI06 5TNnaAoH3KGHsppNnT4XsWG KvdUfaCiK0z6F4Kv5NMFLvF H15MGO3 dQF6OH58MR66I4AeQeytdOE ibGU+PHRhYmxlIHdpZHRoPS snLDKdZhIfzVfhTT9iWd5kL GVyLWNv uAtyrCYvAeHmw8ivCKRlHOy wMZ8mlFpqH0GrqJZ4TDDwv1 t8Uy76K62lI1QqxQK+PGNvb NA2qVW4 wT0zVhZsYeJ7QHkhQ731VyP hnIHnBypwc2ryo6sbwOx7Et Z1FWKeqtFppQcgKLE5q5ApZ q76V73p IHdpZHRoPSIxNSUiIHZhbGl xpo7ppT3ySm1+OWLtuAG6wY T0pL5qCgKmFzG6GZdiP766X nRvcCIv Tqext7xhx9ltrZc0MiBrUWN zfyIokPkiGHV8q5SiCn86K9 VpqYkrc4CrNev2te78mNXdh 3B2lRH9 J5QcULZrnpbgwNGpsCmwWA2 pTOOiwoirXKNtjN1lKNAvF7 f8RkPuWzT0OKmrU9HivqL9S DEwcHQg IRzlCTP3U29xx0G9TXFjZSZ nJTO1nMF0iF2wgYkprtylsP VmdDsgdmVydGljYWwtYWxpZ 246IHRv bTaiIZDwcY0eCTWyjZKcjJb xTE1hULOiokzuLsFPKlYPEL hwBJTTALtYWkYDWA06TU72m VOcq6K9 rSV3I3EeTYQzchzenljveEL 1UVYkCTWcgA48xGDsYIbvQi 3yf8U1o222CEYzMRQzlL30V b3zmCfr JWQzfZYFyG9nflwaj0aoupv xNhQaLFKiLTz7ZTo1LARjjC ngMrWsOMH5HmZ9MTQ5mIAvi F8juXho rgvijJ0zUfx+MDQvMDgvMTk 5NTwvdGQ+FPBwRHA6tRfvOT psTSUsaC1kTSBoN7v3KzZwH zI2LAej W5OaUELuxlqtQd38sJ4fGnZ qVfX3RKceJ3GfleQ0KSNccX UcKQvkARN2D12ta9F8IJLjI DAwMDA7 nUY4oF3zsWrqplygaKIyeNw uewXacItaVXjbVGzoE167FN AjcIfdTtC6NFnjDLHbDK14P K71uTCn r0U7iEC5W5VfAEYyszpaitx xySF9ABBwNCKgmP80yUMvOU ptXo4ms6Y9q875BZQjSYGyu W15Kw4e rUtrDZNecYJEaH9wumrqs7p tlvogKfGrSFEpTNc1HHx7JI BvsUljGkXqIZE7RaQ0VBX3s CWxxK8r mLghjloxvN2sAqe+RmVtYWx kSO82HW65cHDbv1T6cFN9U6 VhISWyikbtlftdxVE1ILQaF DUwaW47 oNBoRHojHj2ic1P8w224DQP zRXNnhB68Ac6ukZkuUFHltC AVsC4eeuqmn7yzmrlkUeGfR DAwMDt0 JIn4JVQowBriHnDjUQK9KiH 5KJF5uWLfwR0dqMrxpugrzN 9wOyc+X3NiFYCyTQdrCF91Z D83F7Cx PjwvdGFibGU+PHRhYmxlIHd pZHRoPScxMDAlJyBzdHlsZT 7yBe1qGFHhKREzfFlycZMuK rAvj9sr SZDnYGolEB4hbEqxO8IgoNN 8PBOub2q1Io34F83oP7WfsG A+ITJciSN6gUY3nS0aJrUfW fV5TYxy I221DwDgdRDoTaloi9qbj7f xdHs4PrKuWFIvwdFsaHyeGB D6e2GePi67U90zBZkxVZHvA SIyMCUi FCQdiMobgx1ucW6fGi7+PGN wvBY5wOF1dA7qQuCyPtU9QZ lzP024LxQlqDQtIpixN96dD 3JvdXA+ CGUiKnj2EDIqkRkfTO8mlBL sXJpzSx5qXJP1UqTdGhYeSP icJ1QqQDZvvuchyxplzKC8Z DAuMDUw mT38Gw3ubJxeMw1vINSiWFS 0QTDhgNOtV8RlsI4jKfYcFA HlNKGlM9RegIPzXIkwU502B GxlZnQ7 GJPxeoPdK5BnGTXkkDuhIuY 5v7H8Yb8CdXpitCZcLD4eWy AsKPv6E6RcFei1MALprRquH G9vbYBt LFrvLl0jzAqndRfzCI4qYRS sgqckp878BtVka1wgAPZggK RvCMqtBUM2V35tp9W7QPTwM DAwMDA7 bSS2uC9aoZbadbyfnACtjPp kawRvhIzkBGjlRTewN227RK DhgIuqVqGSBya1M4RbOsg5Z CBzdHls GA3mlVBnKLitGq3rqNilwMy eFT5jMDCttekqj084FvVua9 jaVXTqdIIdJLhqXBM4L71sb 8E2CFFj RJOoACJ6yBC9aE6cbLpdmte gbGVmdDsgdmVydGljYWwtYW xfP237VYYcaIhxKm2KYag3E 1NgOhd2 IMWptMydFM8etCJsULckJl5 clReyqWfrPH6hDPNufasho3 06GvSpn7auQRBazUVsGChuN SC6U68j s4M3ZCBeGNWpCPF6jQV5vH8 hbGlnbjogbGVmdDsgdmVydG xgVHdcBOhrV904KVQjgOwbS lBheWVy OjwvdGQ+TH61xe44W9AmHxb cPlf5ALRfJZA1iYK6qX4dMJ QzKVxcr4O2aTQ8T1CbbzXzx c0ls3oj YXBz (more content not included)... Normal [facility] Progress Noteon 12-02-2022 Progress Note [...] Ok to discharge. Will make patient aware. [facility] Progress Note VAGINAL DELIVERY POST DAY # [...] DO Vanessa Zambrano DO 12/02/2022, 5:09 AM Normal [facility] 42on 12-01-2022 42 22.5mm flanges given to patient. Encouraged her to call for observation of pump session and smaller flanges. Martha in NICU to assist with personal pump. Normal [facility] CARECOORDon 12-01-2022 CARECOORD 27 year old admitted for induction of labor for preeclampsia at 34/6 weeks. Vaginal delivery. Infant in NICU. Patient is independent and has [...] handle your . Avoid crowds, and keep infant away from sick people, anyone who is sick with a cough or fever, including family members. To be discharged to home. Denies any concerns at this time. [facility] Progress Noteon 12-01-2022 Progress Note NOTE - VAGINAL DELIVERY POST DAY #1 Driss Anatoliy, 27 y.o. This patient was seen & [...] with more than 50% of the total fnyc-hi-ohqy time of the visit in counseling/coordination of care. , 9:[address] [facility] 42on 11-30-2022 42 Swabs given to patikiesha nt and educated how to use and to bring to [facility] 42 Breast pump use indicated for this pt. Due to: in [facility] Hospital breast pump, supplies kit, swabs [...] pump Told patient to check with in [facility] for smaller flange sizes 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 Bowden; Dr. Kramer Information: Information for the patient's : Francie Cope [[id number]] Information for the patient's : Francie Cope [[id number]] Description: normal Meconium Noted: No Anesthesia: epidural [...] by the rest of the infant. The infant was placed on the maternal abdomen and [...] Status: No results found for: RUBELLAIGG Irina Kramer, 11/30/2022, 4:[address] [facility] Progress Noteon 11-30-2022 Progress Note Chauhan catheter inser tank by Andi Bacon RN, catheter drained and emptied for 900cc. Catheter secured to leg. Normal [facility] Progress Note Patient up to bathro om but remains unable to void. Bladder scan completed and reads >570. Sent secure message to Dr. Ruiz letting her know the above. Instructed to place chauhan catheter. Normal [facility] Progress Note Secure message sent to Dr. Gamez stating patient is having difficulty voiding, patient's perineum is very swollen, and that patient was straight cathed for 950ml at noon. Received order for benadryl to help with swelling. Normal [facility] Progress Note Nutrition rescreen completed. Chart reviewed. Patient to be monitored and followed by the diet nanoscience technician. CRISS Oshea [facility] Progress Note Patient unable to vo id, last straight cathed at 0400. Bladder scan obtained for >928 ml, fundus +2 and shifted to right. Patient straight cathed on attempt x2 by Andi aBcon RN for 950cc. Will continue to monitor. Normal [facility] CAREPLNon 11-29-2022 CAREPLN The patient will continue to make cervical change. Clotilde Mg RN [facility] Coding Summary.on 11-29-2022 Coding Summary. [id number] Gh0 bWw+PGhlYWQ+OV8ZXSSxU32 kpRCijQ6AE4aXKM4NFXEXFW EGOS3TUK3efKT3YVqdU8Yem iAv YvjutAUiAG24YQr9SQU8wHd pOFqauB9srWPlF4x4ZuGpOP 97kE92QIknCYPvEuQ7IjWjx jsgbWFy P4vaLzIujYRzWkp+PHRhYmx lIHdpZHRoPScxMDAlJyBzdH bwFJ3lVg0vPELbXOIiuJgmm HNlOiBj x9voSIAzCKnzRI1tcFggA7D ikAW1PGNmr7q0Ns53oQT+PH ReVBN5gGsyDPvsa256EvJep 9hoNRP5 oETdEDakXQB4M99zm9E1JAM kPLDoZLS8mMK6kB7lqThfgu ohC6RolESqYmW6XBB7vFLna H4smHjo ulprwX6qHix+Y08MZC0UERQ GNI8VGiv3K3FeNhicbZN+PC 95SDRyVA62iWGvwCDbl3vqp Lr8ZuOm DLKqBBN6qLnzCOjzu3EdBXB aD02rhCYrk4M5PZIalTnbjA FxHiTjlNV2lL5lDOmfmcasj 2hvdzsn Mphfu3cwwk88cG57U82fBHo lKSUoQZC5XHQyUNYqzOdlnp 5btX2oSm6+NIwoh2lns5ghg Cr6UiIj LCZmfhLccOqtENR0s9NoSb8 7G9KnaLxvh2KhPox6lc94sP Dqc2H1gDP0SPclIGYxdV4zI WxlZnQ6 JEEiWaRwcK51xLEvHIhzTi7 zvZdcuLmtSK0dOBKlxbbyJM DwmF6bCHLtbURyePvxPB9wH TBpbjtm z945BsJpLGH6ZURefCEnM7I stU4kHrNaHUMnHNPyS6YphI UyKNqyU491WYddOzX5UPIuz aInY7Nt LZNlxWafOcA9j7S8Ha8Rz2E doxbdNLS1PXhjOYZcLrN8Mr HqErI7I3SfJpg8FZMhvWjhE C8aK5Hz RDVeeongwhpawBJ3YIRjAEQ ksN14qEQrGMpuNi2nm3E3j0 63FBJlRRQskN68Tn5deTwzX TBwdCBU sY1nhpkoa8bojkreCxGjCFL pCEb0YHc9EFBktMrrEoCpBF V6ZbU9EEI1vCCgdX4nmMwxp mcldP4e Oyc+M29jrJ8iIQO2NGJ3mms pZKHyorRyYG09CE18Z5PqWc wvdGFibGU+PGRpdiBzdHlsZ G1kKfVt g9vgv0LxOTsdW7YbKFCmYXo pBuf9QVUlOJW0uNY2hB5uEX QjDRvax3N1dHM1I7GqjzLgd i6ko0mn MYQrVDciA95rsQDav5E2HPS lfNR4WLRcfTeqWzNqzZ06Hu c+KOHfyZzqq3GzGumhk9sgy 6pxmQw5 TkWfAORpqxHzzUfxXYT8p8D kZm74A17rUAngZVFuPOAdAF LnSZNtuWpwqt8olK2lPd6+P GNvbCB3 zQH5cK6dUAAoVtL7COlgH57 5FtAycRDwEevfd3iex4hjuH w5KfPhKILuypAicHncORI5h 7AfPe57 N68tBMspMSJyEPBsVFIkXSO spIwxda7xnP3nMa8+PC9jb2 neax70zW98iZT+JFRsQZN3q WxlPSdw EUFmmE2xXBgeVtJ4RKAoJlD gzP89mQEuERyqTu1usMxlvY iiHI1nDVNafozkb627EbPwt 2xkIDEw oLJkOYumKBZ7Z60ah3R5UAC oGLRpRYI5cGK1rF7oqXnpxa ogbGVmdDsgdmVydGljYWwtY IndU345 IHRvcDsnPlBhdGllbnQgTmF uVBu9T0WkHof2FFYouXzqNF 3gyVQzPBocVu0yhViwpWhqH Y1aKERn lanit472WnHvk0tyIIRrsKU fROeyHWO8L61rw3K5GJKqRR SjMGX4iDR3zO4ooTfvsgnwj GVmdDsg loZfpFocRGvcAExvY980MRJ vyUsiVbVecbDwNOXpcDL3CD 43JN42oZRgz2O2jSZ1T0TqA GRpbmct ihmjbMT0QXUwLDUvlJ65Dj4 gdEvtAt5zTITxFRR4MSCmfI WmZ6BesA7bReViMEFxJBIuK 3RleHQt SIueF726DFrxLkY0MJLqcqX oB0UbNIBotUaeViB3d0Q4La 9AC6T1TN26AQ00gMFnh2B0k VF7L8Ka WDBtlbovxkcvxVT6WEOrLKG viF96Hq3dxGwbGl8kLMDnJZ M3JIHcpQUmR3QimZ5wEpCzX DAwMDAw M3MqgONkRJqsQ753CKsvScZ 6RPDeiqHrS6IrNXIhpFhhFq U3m5P0Rb2EZNk2SN76BO43o HQsj0W6 oIU1G6RjYSGxrpfexaldwGN 3KHHoUZKtlD86Dp9tpZvgGm 3tOJMaTTV5SFCrwJXkK3Mnx R2rWzFb GTNxPXAoA0VigZZuVLjvY07 7VFfwMdG3CYJdbsQeG6HlUJ KfmUgrRhH2c0A8Tn3OELNmU N00ATA8 bBC5YO97HI87N0VxHtrxlDF ibGU+PHRhYmxlIHdpZHRoPS kcYJKtUeHeqBakSI9kIp7qV GVyLWNv cCvztKElPlFot4weFQOjFAm uLC0kvUhuA0NhxKX5ZFNyr7 i7Zu63M00vN8NfkGM+PGNvb IF8qTP0 aR3oBgOiLjY4ZDrfH977VrE riKKjEnxfz2jrh5yecIl6Pr Z9CAZyfzZhjCtxYGS4j6IlI r93F88z IHdpZHRoPSIxNSUiIHZhbGl xcq9fvB3jHa8+RPHszHH0vB X2nV5iOwSgQvR1LIwzB120C nRvcCIv Sjhlg3awi8suzGo6FfBaFOL friBbpTiaLUV1a9OhIj98X4 PjuLypl7DtSqd4xx25aSZfg 3A2xMM3 F8BvBZCpdozqhMCubCctZC3 uWJWtbcsrPAEweM6xGNYjS0 t1ShFxLrQ7JXoxQ0DotqF7O DEwcHQg DUtyHJF0H19px2W9ANUxHVK eYPZ6kBV7oB8abPohxiehvY VmdDsgdmVydGljYWwtYWxpZ 246IHRv jKkbKYVzfJ3vZPUjdVMpyTz zUO6wPZKtotrhXiZKRfJMJT hwEXLGTIuOHaBCDH79BW91g JYzb6I5 yEC0G3ScOEWvmvndeorxnNP 9JAMlZCSliI77cAIjLOgsVy 5bd8J4p432VJSiEHNgqR44G q6neQml QDEblILLhH1nmiauz3xjydc aAkRePIPxKFt0IFh2LRGinJ vrKrQzAAF9EoU3SUT5aDWsb X6ghAoz bzczuM7oDub+MDQvMDgvMTk 5NTwvdGQ+MEMqVKN4lSmpQG xoVUMgrR3qTHQvI8c3EnUbI rX0COrj E9YsVCSnhbjuUj94rC7eKkH oBcF0HDriZ1YmgaX5LSBilW FuTKhjNAU7J89sn8F0HRExX DAwMDA7 fJM1mW2nnPanmfgdsXEksSv utcBptIasFDmbJJddX994SS HkcDghYiW0NRbnSFXxDA19D R45bXLa r2Z5tJR5I8FwQCRezracweg auOB3YLShGLBtaG94gHDjSS kiGz6dl6R0p111MVLeXSCbr V01Vr5v kTvnPOVrmDUIoT5poqfqz5f dodwjKnIyZZHqWMa4TFo1NT QgdRmiRcMbKKT7KpD5BGB0c QEksI1j nJohejlcjB4oGqj+RmVtYWx vTM80IR53jBVyz9F0uAI0R3 JrWYHvbabpfwecoDI7PMJvU DUwaW47 dAAbXKewDi8zn0O1k488ITZ wZCUewH12Mk0nzNpoVFIboP FDoU1otthpm3xnyjojWgEkG DAwMDt0 DPo9VIRtpMibHyCaRRB3VnK 6RXU0vCHegE7uzZkhtpmteP 9wOyc+T5BcCTQrHJfkEL67V S82L9Fp PjwvdGFibGU+PHRhYmxlIHd pZHRoPScxMDAlJyBzdHlsZT 0yCa6iHKXoWHXfmLrjsHIaF zJsz8pz JZIvEMpwCR2puZmuJ6JfiIF 4QTRiv3a8Ic57L79qP7FbvE A+LIUdfBX6sSL8kU8wBmUnP mE5CUpu G012KkQftHVnJsosj8pwx5i iwCl0HoQlGOMfvaHojWmnZZ M7m6JjCc17X65rTRfhDFBiQ SIyMCUi QSUcjMuhxw1scA4vGz6+PGN vcJP0kHB2dQ6fQnBvFxB4LZ oqQ369AyRdnVQnSbiqD54oW 3JvdXA+ ICOmBqw4ICBgtZzaNW0rjWN qMRwiIm2bCLZ4CqVjQxTaJX lrB5OyZKWoaxogwcvlrLY7K DAuMDUw xG13Vy9icUelKf9cIQPmPDJ 2SXJyiQAhP6ZafM7nVhWiJY CmJJTlW5IzfJKuIWuiB221A GxlZnQ7 QDGqfiAuJ0TwKVDztKauBzU 7b2D1Rs1MuNudvBSqRL5jPx WnTId3I7WyQdr8QHMtvXtjV T8qtCPg XJwgTs8ihTuozZwoCP5vJAJ okpjvn032OmUvu5gySJOftD IeHRpcCPK3J63vk2B3UJJdP DAwMDA7 zWA1lK9cxNwiomyqwDVugJr gipLbzYqgQZnmPLybM898GZ YpiMlcWwESPgz8X9FmZhb8Q CBzdHls HU5vqHIbVVzlRb7utQelxVq bSF4yVJLmjzftq230MjRfb9 viAPJeuEOlYXzxEWB5G25wh 5O9FXTw BCZnPTI6xSY0sU2mwRqbeex gbGVmdDsgdmVydGljYWwtYW bkY054PDQbbRzlSg9KFrn1P 9TdLjb6 VVTqnYaeFC9zjVEqMOvcYz3 qlQnlxVyjOD8bTXHcxnkwh7 08GrPrw8noENVhzLPtNBrwQ OQ8Y15r z8V1YPLiWLKeOCQ7uFD1hT6 hbGlnbjogbGVmdDsgdmVydG knVYnoUUuyN958FUDtqWqxM lBheWVy OjwvdGQ+CG93no36W9GaOew fFws1XSTsVPV5zZX4dR8zQL GtFQbnr6T1wSU8B5KrnuCex e5yv4cm YXBz (more content not included)... Normal [facility] Inpatient Clinical Summaryon 11-28-2022 Inpatient Clinical Summary [address] [address] Clinical Summary Person Information Name: DRISS COPE [facility] Age: 27 Years : 1995 Sex: Female PCP: CRUZ RODRÍGUEZ MD Marital Status: Single Race: White Ethnicity: Non- or Language: [place] Citizen Visit Id: Visit Reason: CRAMPING, VAGINAL PAIN Speciality: Acuity: Obs Enc Type: OB Triage Med Service: Obstetrics Arrival: 11/27/2022 13:42:15 Discharge: 11/27/2022 22:26:00 Dispo Type: Short-Term Hosp as IP Address: [address] [place] [phone] Provider Notes: Diagnosis: Problems Active (07/14/2022) Recurrent [...] Refills: 0. (more content not included)... Normal [facility] Inpatient Patient Summaryon 11-28-2022 Inpatient Patient Summary [place] [address] Patient Discharge Instructions PERSON INFORMATION Name: DRISS [...] find a nearby participating provider. Comment: Divya SUNILBOYDNITOCLARK Sanchez, have received the attached patient education materials/instructions [...] to serve you. Thank you for choosing [facility] Insurance Correspondenceon 0 11-28-2022 Insurance Correspondence .[phone] [id number]#1.00 CD:127 [facility] Nursing Assessmenton Nursing Assessment [phone] 020 [id number]#1.00 CD:127 [facility] Transfer Documentson 023 Transfer Documents . 020 [id number]#1.00 CD:127 [facility] Transfer Documents . 020 [id number]#1.00 CD:127 [facility] Transfer Documents . 020 [id number]#1.00 CD:127 [facility] Comment on above: Other Comment: Not l abeled Transfer Documents . 020 [id number]#1.00 CD:127 [facility] BB Draw & Holdon 11-27-2022 BB D&H Sample drawn for Blo od Ba [facility] Comment on above: Performed By: #### 2 [id number], [id number], 0764239, 8660486, 0994427, [id number], 4156281, 2891663, 74662525, 1412119, [id number] ####[facility] [address] [place] [address] BUNon 11-27-2022 Urea nitrogen [Mass/Vol] 7 mg/dL Normal 5-21 [facility] Comment on above: Performed By: #### 2 [id number], 9361469, 1733141, 4459802, 0461060, [id number], 6722969, 7867085, 17979418, 3316912, [id number] #### [facility] Laboratory [address] [place] [address] CBC w/Indiceson 11-27-2022 Erythrocyte distribution width (RBC) [Ratio] 12.9 % Normal 10.9-14.2 [facility] Comment on above: Performed By: #### 2 [id number], [id number], 6450565, 6137072, 0963612, 81538763, 6268262, 8935541, 92262262, 5439006, [id number] ####[facility] [address] [place] [address] Hematocrit (Bld) [Volume fraction] 34.2 % Normal 34.0-46.0 [facility] [facility] Comment on above: Performed By: #### 2 737542, 2660309, 1973807, 0123512, 3828717, 85573425, 6387235, 4847732, 73198428, 0446299, 12615596 ####[facility] [address] [place] [address] Hemoglobin (Bld) [Mass/Vol] 11.0 g/dL Low 12.0-16.0 [facility] Comment on above: Performed By: #### 2 619582, 5659357, 9327099, 0443212, 4960706, 49320722, 7467299, 7032357, 26491322, 9664788, 61663241 ####[facility] [address] [place] [address] MCH (RBC) [Entitic mass] 27.3 pg Normal 27.0-34.0 [facility] Comment on above: Performed By: #### 2 622130, 8593601, 1197433, 8300291, 3187656, 42721242, 3285841, 0126918, 48138873, 6943603, 35917031 ####[facility] [address] [place] [address] MCHC (RBC) [Mass/Vol] 32.3 g/dL Normal 31.4-36.0 [facility] Comment on above: Performed By: #### 2 833157, 7888461, 8349142, 2861311, 2962484, 03129779, 8651095, 6649277, 15257405, 1167822, 61397844 ####[facility] [address] [place] [address] MCV (RBC) [Entitic vol] 84.6 fL Normal 80.0-100.0 [facility] Comment on above: Performed By: #### 2 394042, 2304271, 7135963, 6847998, 8991563, 90400369, 2789558, 2731275, 85345352, 0276365, 49467694 ####[address] [address] Platelet mean volume (Bld) [Entitic vol] 8.2 fL Normal 6.4-10.8 [facility] Comment on above: Performed By: #### 2 691517, 5273068, 3010030, 9608380, 2495092, 09554238, 7381856, 7131138, 14724021, 3409799, 85927384 ####[facility] [address] [place] [address] Platelets (Bld) [#/Vol] 273.0 E9/L Normal 150.0-500.0 [facility] Comment on above: Performed By: #### 2 811789, 5025893, 4681230, 6495640, 0196843, 81287328, 1870943, 2490624, 16318334, 9673817, 98940024 ####[address] [place] [address] RBC (Bld) [#/Vol] 4.0 E12/L Low 4.3-5.9 [facility] Comment on above: Performed By: #### 2 730645, 8495426, 7488125, 0522753, 9975245, 20057349, 0793841, 2433610, 77714545, 4067166, 68293748 ####[facility] [address] [place] [address] WBC corrected for nucl RBC Auto (Bld) [#/Vol] 15.7 E9/L High 4.0-11.0 [facility] Comment on above: Result Comment: Slid e reviewed by ts Unable to obtain accurate platelet count due to platelet clumping. Platelet count estimate appears normal on slide.. Performed By: #### 2 884036, 1030364, 0535955, 7716560, 8720700, 64525059, 1695318, 5360799, 36067694, 3014035, 57940920 ####[facility] [address] [place] [address] CHEMISTRYOrdered By: SYSTEM SYSTEM on 11-27-2022 Free [...] rate/Area] mL/min/1.73 m2 Normal >=59mL/min/1 .73 m2 [facility] Chem S Globulin (S) [Mass/Vol] 4.0 g/dL Normal 1.4 - 4.0 gm/dL FT Remisol Potassium [Moles/Vol] 3.7 mmol/L Normal 3.5 - 5.3 mmol/L FT Remisol Protein [Mass/Vol] 7.1 g/dL Normal 6.0 [...] (11/27/22 3:14 PM) Invalid Interpretation Code <10 [facility] Man Sero Fibrinogen Coag (PPP) [Mass/Vol] 539 mg/dL High 200 - 393 mg/dL [facility] Auto Coag INR Coag (PPP) [Relative time] 0.9 {INR} Invalid Interpretation Code [facility] Auto Coag PT Coag (PPP) [Time] 10.1 s Normal 9.4 - 1 2.5 second(s) [facility] Auto Coag Consent for Treatmenton Consent for Treatment [id number] D:127 Normal [facility] Creatinineon 11-27-2022 Creatinine [Mass/Vol] 0.6 mg/dL Normal 0.5-1.3 [facility] Comment on above: Performed By: #### 2 418718, 0927596, 2487591, 4709936, 5022089, 07064168, 6017397, 6782268, 30415831, 4926253, 48689633 #### [facility] [address] [place] [address] FSPon 11-27-2022 Fibrin+Fibrinogen fragments (S) [Mass/Vol] >10 and <40 Abnormal <10 [facility] Comment on above: Performed By: #### 2 764990, 3977965, 5551021, 5164118, 2971628, 05559280, 3070224, 9451651, 66153082, 0434674, 88021947 ####[facility] [address] [place] [address] Fibrinogenon 11-27-2022 Fibrinogen Coag (PPP) [Mass/Vol] 539 mg/dL High 200-393 [facility] Comment on above: Performed By: #### 2 127032, 5086757, 3310573, 3269181, 0440454, 31687800, 7302816, 3024544, 43674790, 4009928, 78779596 #### [facility] [address] [facility] [place] [address] HEMATOLOGYOrdered By: Raquel Arteaga on 11-27-2022 Erythrocyte distribution width (RBC) [Ratio] 12.9 % Normal 10.9 - 14.2 % FT HemeAutoSS Hematocrit (Bld) [Volume fraction] 34.2 % Normal 34.0 - 46.0 % [facility] HemeAutoSS Hemoglobin (Bld) [Mass/Vol] 11.0 g/dL Low [...] Bilirubin.indirect [Mass or moles/Vol] UTC Abnormal 0.1-0.9 [facility] Comment on above: Result Comment: Resu lt verified by Discern Rule. Performed result UTC (Unable to Calculate) was sent as an Alpha code due the inability to calculate a valid numeric value. Performed By: #### 2 339880, 1209988, 7173022, 1073531, 9269364, 44726941, 4671303, 0266254, 40395839, 0542509, 17557352 ####[facility] [address] [place] [address] Albumin [Mass/Vol] 3.1 g/dL Low 3.3-5.0 [facility] Comment on above: Performed By: #### 2 538042, 4606651, 1477513, 3647750, 7126786, 88942385, 6876688, 4372047, 85094348, 5189063, 86430321 ####[address] [address] Albumin/Globulin (S) [Mass conc ratio] 0.8 Low 1.1-2.2 [facility] Comment on above: Performed By: #### 2 931657, 4669287, 9925092, 9700035, 4393527, 22511977, 8645976, 2876979, 80226120, 1705885, 11228916 ####[address] [address] ALP [Catalytic activity/Vol] 145 Int._Unit/L High 21-98 [facility] Comment on above: Performed By: #### 2 137870, 3881579, 5308775, 3771437, 3374438, 47314670, 8420085, 0449714, 85395692, 9374497, 28654245 ####[address] [address] ALT No additional P-5'-P [Catalytic activity/Vol] 13 Int._Unit/L Normal 6-46 [facility] Comment on above: Performed By: #### 2 922703, 1830129, 1217730, 6949750, 5827140, 10861020, 4020080, 9232301, 65978197, 8652349, 64165125 ####[address] [address] AST [Catalytic activity/Vol] 22 Int._Unit/L Normal 5-43 [facility] Comment on above: Performed By: #### 2 397999, 0819085, 6188171, 1738502, 4378461, 53732831, 6594024, 9843377, 23847384, 2020888, 36891059 ####[facility] [address] [place] [address] Bilirubin [Mass/Vol] 1.0 mg/dL Normal 0.0-1.1 [facility] Comment on above: Performed By: #### 2 529442, 9164692, 2349276, 9387076, 7073073, 18451872, 6087013, 0642147, 51397648, 3544998, 23203546 ####[facility] [address] [place] [address] Bilirubin.direct [Mass/Vol] mg/dL Normal 0.1-0.4 [facility] Comment on above: Performed By: #### 2 870195, 0601847, 2525315, 2626254, 0531865, 29281916, 6628231, 8596690, 35458789, 1870376, 98531290 ####[facility] [address] [place] [address] Globulin (S) [Mass/Vol] 4.0 g/dL Normal 1.4-4.0 [facility] Comment on above: Performed By: #### 2 438682, 8866248, 2007561, 7864111, 1825379, 21023324, 9316720, 6028000, 09200082, 0696578, 11742611 ####[facility] [address] [place] [address] Protein [Mass/Vol] 7.1 g/dL Normal 6.0-7.8 [facility] Comment on above: Performed By: #### 2 175417, 4565857, 9483761, 9934233, 4838548, 33638534, 9280697, 3654177, 65803534, 1952721, 25414319 ####[facility] [address] [place] [address] Lyteson 11-27-2022 Anion gap [Moles/Vol] 16 mmol/L Normal 6-16 [facility] Comment on above: Performed By: #### 2 549766, 6430819, 2371684, 7653733, 1878550, 94886270, 6420330, 2756622, 00581271, 5635439, 38758109 #### [facility] [address] [place] [address] Chloride [Moles/Vol] 102 mmol/L Normal 101-111 [facility] Comment on above: Performed By: #### 2 632793, 6163452, 0474777, 3254445, 0344216, 66688569, 0438229, 3890776, 47916042, 6777624, 98926447 #### [facility] [address] [place] [address] CO2 [Moles/Vol] 18 mmol/L Low 21-31 [facility] Comment on above: Performed By: #### 2 978755, 4937185, 6736552, 7842632, 6512931, 23965078, 9564298, 4432697, 22964895, 7961901, 14361860 #### [facility] [address] [place] [address] Potassium [Moles/Vol] 3.7 mmol/L Normal 3.5-5.3 [facility] Comment on above: Performed By: #### 2 613368, 2780476, 6084592, 4563718, 5260162, 56400176, 3517860, 8142584, 11115825, 3199117, 28379209 #### [facility] [address] [place] [address] Sodium [Moles/Vol] 132 mmol/L Low 135-145 [facility] Comment on above: Performed By: #### 2 354509, 1566378, 3848574, 7692463, 7371055, 40056977, 5508252, 7048001, 01519695, 9458209, 02613675 #### [facility] [address] [place] [address] PT & PTTon 11-27-2022 aPTT Coag (PPP) [Time] 25.3 second(s) Normal 25.1-36.5 [facility] Comment on above: Result Comment: [...] the same coagulation reagent and instrumentation as [facility]. Currently there are no coagulation studies available worldwide for children to 14 days, and no normal ranges. Heparin therapeutic range (represented by Anti-Factor Xa activity of 0.2 - 0.4 U/mL) corresponds to PTT of 56.6 - 109.0 sec. Performed By: #### 2 931158, 7467223, 3742386, 1985466, 9928892, 49445528, 0771605, 8007467, 46714580, 2493857, 32792272 #### [facility] [address] [place] [address] INR Coag (PPP) [Relative time] 0.9 {INR} Invalid Interpretation Code [facility] Comment on above: Result Comment: INR results are specifically intended to assess patients stabilized on long-term Anticoagulation therapy suggested INR?s ?Less Intensive Anticoagulation? 2.0 ? 3.0 Conventional Range 3.0 ? 4.5 Performed By: #### 2 717381, 1560674, 8884566, 6810786, 7300749, 04628430, 1570855, 5894732, 63173720, 1904539, 95036737 #### [facility] [address] [place] [address] PT Coag (PPP) [Time] 10.1 second(s) Normal 9.4-12.5 [facility] Comment on above: Result Comment: [...] the same coagulation reagent and instrumentation as [facility]. Currently there are no coagulation studies available worldwide for children to 14 days, and no normal ranges. Performed By: #### 2 205670, 5632906, 1068767, 3779634, 2700842, 65193925, 3013988, 9980719, 00685479, 8892913, 04881551 #### [facility] [address] [place] [address] Thyroid IIon 11-27-2022 TSH Qn 1.65 m[IU]/L Normal 0.34-5.60 [facility] Comment on above: Performed By: #### 1 7265993 ####[facility] [address] [place] [address] Free T4 index Calc [Mass/Vol] 5.98 ng/dL Normal 5.90-13.10 [facility] Comment on above: Performed By: #### 1 9274858 ####[facility] [address] [place] [address] T4 [Mass/Vol] 7.5 microgram/dL Normal 4.6-9.1 [place] Comment on above: Performed By: #### 1 4275495 ####[facility] [address] [place] [address] T4 uptake [Mass/Vol] 31.9 % Low 32.0-48.4 [facility] Comment on above: Performed By: #### 1 5812898 ####[facility] [address] [place] [address] UA With Cult Reflexon 2022 Bilirubin Ql (U) Negative Normal Negative [facility] Comment on above: Performed By: #### 1 3722940 ####[facility] [address] [place] [address] Clarity (U) CLEAR Normal Clear [facility] Comment on above: Performed By: #### 1 8503101 ####[address] [place] [address] Color (U) YELLOW Normal Yellow [facility] Comment on above: Performed By: #### 1 5205846 ####[address] [address] Epithelial cells.squamous LM.HPF (Urine sed) [#/Area] 3-4 Normal 0-2 [facility] Comment on above: Performed By: #### 1 5481521 ####[address] [address] Glucose Test strip (U) [Mass/Vol] Negative Normal Negative [facility] Comment on above: Performed By: #### 1 8673956 ####[address] [address] Hemoglobin Ql (U) 1+ Abnormal Negative [facility] Comment on above: Performed By: #### 1 9628507 ####[facility] [address] [place] [address] Ketones (U) [Mass/Vol] Negative Normal Negative [facility] Comment on above: Performed By: #### 1 4633010 ####[address] [place] [address] [place].plasma/Lithiu m.RBC (Bld) [Mass ratio] 4-20 Normal 0-3 [facility] Comment on above: Performed By: #### 1 3033970 ####[facility] [address] [place] [address] Nitrite Ql (U) Negative Normal Negative [facility] Comment on above: Performed By: #### 1 9390441 ####[address] [address] pH (U) 6.5 [pH] Invalid Interpretation Code 5.0-9.0 [facility] Comment on above: Performed By: #### 1 6441836 ####[address] [address] Protein (U) [Mass/Vol] Negative Normal Negative [facility] Comment on above: Performed By: #### 1 1619776 ####[address] [address] Specific gravity (U) [Rel density] 1.010 Invalid Interpretation Code 1.005-1.030 [facility] Comment on above: Performed By: #### 1 8374866 ####[address] [address] Type of Urine collection method Clean Catch Normal [facility] Comment on above: Performed By: #### 1 7062660 ####[address] [address] Urobilinogen Qn (U) 0.2 {Aspen'U}/dL Normal 0.0-1.0 [facility] Comment on above: Performed By: #### 1 4335852 ####[address] [address] WBC Auto Ql (U) Negative Normal Negative [facility] Comment on above: Performed By: #### 1 6688614 ####[address] [address] WBC LM.HPF (Urine sed) [#/Area] 0-5 Normal 0-5 [facility] Comment on above: Performed By: #### 1 3254067 ####[address] [address] URINALYSISOrdered By: Rufus Jenkins on 11-27-2022 Bilirubin Ql (U) Negative (11/27/22 1:55 PM) Normal Negative [facility] UA Auto SS Clarity (U) Clear (11/27/22 [...] PM) Normal Negative [facility] UA Auto SS [place].plasma/Lithiu m.RBC (Bld) [Mass ratio] 4-20 /HPF Normal [...] [facility] UA Auto SS Urobilinogen Qn (U) 0.1458988 {Aspen'U}/dL Normal 0.0 - 1.0 EU/dL [facility] UA Auto SS WBC Auto Ql (U) Negative (11/27/22 1:55 PM) Normal Negative [facility] UA Auto SS WBC LM.HPF (Urine sed) [#/Area] 0-5 /HPF Normal 0-5/HPF [facility] UA Auto SS Uric Acidon 11-27-2022 Urate [Mass/Vol] 4.9 mg/dL Normal 2.2-7.4 [facility] Comment on above: Performed By: #### 2 479982, 6311355, 3328350, 3492182, 7367095, 14898731, 5955100, 2077382, 93120240, 2047355, 28413462 ####[facility] [address] [place] [address] eGFRon 11-27-2022 GFR/1.73 sq M.predicted among blacks MDRD (S/P/Bld) [Vol rate/Area] mL/min/{1.73_m2} Normal >=59 [facility] Comment on above: Order Comment: Order added by Discern Expert. Result Comment: eGFR is race adjusted. AA=. Performed By: #### 2 445117, 0411153, 5186899, 2242706, 3639259, 45408103, 6706663, 1250304, 16046423, 3973440, 47782663 #### [facility] [address] [place] [address] GFR/1.73 sq M.predicted among non-blacks MDRD (S/P/Bld) [Vol rate/Area] mL/min/{1.73_m2} Normal >=59 [facility] Comment on above: Order Comment: Order added by Discern Expert. Result Comment: Director Of [employer] jose kidney disease could be indicated at eGFR's of less than 60 mL/min/1.73m2. Kidney failure is indicated at less than 15 mL/min/1.73m2. Performed By: #### 2 475142, 8398995, 9119642, 6466876, 9853524, 72533439, 1023472, 7289578, 10189950, 3665806, 97221211 #### [facility] [address] [place] [address] Coding Summary.on 09-27-2022 Coding Summary. CD:[id number] Gh0 bWw+PGhlYWQ+MM5ZHHSuH02 nrHXhsL9YC5aPAQ1SPPAZMX UMRJ1MGD4puGW4LEmaT2Afv iAv TencjXNzPQ43MZc1WKI6dAt sYJdnmA5seAQtE8c1OwDvOL 02eF26GRsjZTNlEbU9QeHay jsgbWFy W0kuPwXdcPNrNtc+PHRhYmx lIHdpZHRoPScxMDAlJyBzdH zfZX4fQe1hJJSzYOPldKtbv HNlOiBj m0inSCUzTYpdDW7vhQbxW3D qnED8XAAmn2z6Hi22yRR+PH NiZXS4rRvzRHyov124DvMoh 4yrIZV8 jUNiVZsfUWD8L77zm0Y7MXC wDXAuPKT9lMV1mX2moIpoha ufY2XzgWWaJaO5UZH5xFRcg E6ydCrl oggtyQ4qTll+U17CDV8NIOD XAK9POac6P5MrLaulsTA+PC 16FNMePO93pBHwbOBkh8wvc Gf4ErUn SSPzBTW8nSgmFYokq1JgXSO qH61agSWrm7O6YMZhlUysgL HzOwBljKY8vH2tURvjpxepv 2hvdzsn Kiflz5iyxy89kW21L62jLAn cGUXlIUG6XNFgWSSjkDubcd 4bqB9pLf2+XWwwy1xga3bev Ec7GnZz MTMtihQnkLwcIEZ5m8NzCn4 3T9NnwCslf3QfTom9xg77wC Rxn8E9fOK5GCprDXNlcA9iQ WxlZnQ6 NYZlJxAviV86wEKkHNsuQe1 vsXbybBfmSA2zMWXeawafRU KvaI8tFGJecGBawWxlOX2uT TBpbjtm s260KvCjAXL0WWCtzKYvF6V myO9eKpVhBEEyGYQxC1CatD HtXOnrQ965CBzoVeB8TZZqm tTfC3Ph VTWmcUsnToJ2m8V5Bi8Zv1Z pfjocTQF1KNtcGHEiNaQrRp UrIwQ4L5EzOjn7EDKjyIwdW H5oQ8Sr EDRpitjbnbztkPW6PHRuJOP ngS27vJIsVPlnZj6nx6O8y9 37UQYoBASawC39Gq0exIvqI TBwdCBU dY4niaudc8fjyiqoKcRwXTT mHNt2ITy3FGUujHiuXvAmXL U9BpK8GTB0rQPnzO7kyHpdj qycaH7t Oyc+R84wzW3wKEB4IRL6doe gMZScvsFgAV67MQ70Z8FmHf wvdGFibGU+PGRpdiBzdHlsZ V4lRwOl m0tvl0KwMAsoZ2ShXOVuSNn tIta2TARyAJN6uXX8vK0qXM XxRIehi3Y8dLJ0N7NgzbLnr h6bj5kt URJrJQvwE18btJXcf0C6AMK wzNY5PHDbvLjoMsHbhY63Oh c+LKApiYzzm5QhYrtrx7xvy 3bqnLh8 CdYiBMUpbmGgySypLSI2q7N cWw15E18aMJzoXHRvEBAdHY ZcSENhiGqjsc1kbN2bRr7+P GNvbCB3 cWL2pM6cHRYsFuD9SRsdH81 0WtPgkFBhYenuu5vad3eybQ a3SqLcWUSmtcYzmEpeFBE6c 5JuAx64 S33dBMluMEVqEQReZXDuYUS nzZgkbt6uxO2oTs9+PC9jb2 dmxu79eM48zBH+NMQqRYO1n WxlPSdw LWGpmT9uKVhbDtB7RLMpBrR ycQ43uYCmSShqCx7fjLeybJ ynHH2lGBDxrpgrj248XlXzv 2xkIDEw rLUzRLkvTPY8N61gt7S8PKT wHKRjRPR6mFP1eZ0cvEdozh ogbGVmdDsgdmVydGljYWwtY QscK966 IHRvcDsnPlBhdGllbnQgTmF oRQv1B2VeXxv8QBUcxEfzLW 8blMZoKNsbUe6rfNbfaPsjP U3eNKHq sblrt156OeWgi9fnSCGhjTQ uGDccROV4W61az1P8HOVmJE ZoEHH0jAH2lL0vpNncyxlpu GVmdDsg pdGhgXdsAAgqNKbkU591YZE pkKakVgQzpdHnFADcxCE5SS 11AX72sMJgh9B2vFL2E8JoO GRpbmct gpvyaCE8SODhJBQaoX04Tv5 mwWsvVz3pWNRfRQR0PRLwhK SiA7JghW0oIpZvSPSzVCUxG 3RleHQt IFxhF113STlvMkC9VRUcvnJ dO1SgRRFxeXkeHgU8y6R2Mx 9XG2H2OM47ZY00mJHdv4C0x EN1A7Ur FLFvhhxzynznwEA4LDXjXMN suW96Hj9vjDpeDp5bIJXpAX O4HMHkhZSlC4IvzH4pUkVsC DAwMDAw A7IclNNeDChfT108TIqdYnI 5CJWyqqMhR5YcVXRboYdaIe G1u2W2Fx8WKAt3MC80AK05b BQlv0T7 jFA2A8MqQZBoewnwzndkgSZ 3XKCmULSvxD72Te3ivLswMe 2gBMIiNSQ7OBJwmBRaD5Zil C7hQvFt YBPdNKZbU0KyaOAiOPdmI40 2KIggGwS7UYVglySbS7BmXI HpgUdmRqW6s5O5Rr4IJCSwK T43EHB6 hGU8ZB69DL04E3JpJkhqoTE ibGU+PHRhYmxlIHdpZHRoPS jnFGCwFbHnhSmfZA2aKh2wQ GVyLWNv uQuqqZRzStDio1foRQZsBTh uHT4xyZsbV4IbkHI8VJGsy2 x8Ut86J37uF9XjmGE+PGNvb JT5yRQ0 hL8iEfCdCoN1KOltQ693ZnR akIVdHnctj1nbl1yoaIq9Kg S5CMZkrcQipIwwMNM7b4WiG e73I64q IHdpZHRoPSIxNSUiIHZhbGl ixm8kpP7rWj2+SYEfbAY8iF G1oH5uFdDiTiL4BTgyU233O nRvcCIv Dstww3wry7cexRu7GyQxSEE epcDouZwpMUT6b1GnCs10X1 BrnKqxq8MrMjs9wm92vFIke 6E2sBN0 C3UdSFUztmgukHQohHwyAM9 pWDOnijmhYKAwyC0xSQJwG0 q4AxCyThR4PJtqV1ZshcN0R DEwcHQg QHlbFTW7F44db5Y8IVGaPTU dHPR7hRJ7qV0lfBbjjwxeuU VmdDsgdmVydGljYWwtYWxpZ 246IHRv mFrtOXRetY9gVNBjkHYmzFn vPR9eJXAcnwxlIgCOXaADGA tjTYEFNQhZDnZSYJ09GJ66j AWva3W7 iIS6V2BlOCPmmjzhisgczVI 6NXAnTJCjyK54nIFhZMofXi 9jg0K0a725TUOyOJCrtK89P i3sqYmo YCHbgXFCsD6nietut7updvy vScAmFECqRKx1MJk4RVQrxX vcXdUuIBF8BjW0ZSH9dFHta F5crUfx edtenP8oHqb+MDQvMDgvMTk 5NTwvdGQ+YFIoFPS7zZvxDZ myNEOjmR0gSVVeK5c9ZyUaO bQ8CNuu Y2VxLORemqysTg16rB9eUiN tHpP5XRurX6OaqrA4AJCwiM PxMBdiEJQ4S45gx8U4XZGvH DAwMDA7 kLH4aU2deFamppqarMGcjNh lgoSpoVhnFLejBWavE155AP MlzYuuAsZ7RErsUTNbTU67Q Z00bCMj a7Z4mGN9F8DuDRQvsuxvbhv nmVY9FJIdSIBtxY09qYTeYJ taYr1xl4E9w046YEQvYNHyg I27Xa0m cHwrOVDqbKAEnY7svcxli4e qttomTyCoTJWySXp0PGn8GZ BzzYcyEwXmSRS9WtY0GVL6l TEstD0y vIbcrzvedP8yUnn+RmVtYWx tQT66RD79rBBso8F0eMB4Q7 EmPDHkbimmegsasKF5NDRhG DUwaW47 uWSvZVyyHi5tb4D5v024AUN bJOYjbD58Vq2fhKsfNLScjN TToK4sadmmd5allcljFnAeV DAwMDt0 VQp5MSNnbNifNhMfMAL5MzC 4FII8jPYyhO1roYayuuzheD 9wOyc+K1S0vED3kYLtxCayw GQ+PC90 oy97C6RhQtfjWse9KSLoYTB 1xWL6fY0jASVgPAlkf1S7qX S5I2MrjbNerg2yb6ioNZSnK KjmU00n eFLeh0G2KMSwtGB7QMCuyGd nToKxeJ50Uxe+PGNvbGdyb3 PcGvllw8ksp5shcFz3GiOkQ SIgdmFs rGarXHI0w7KtWz69F10bICy pZHRoPSIzMCUiIHZhbGlnbj 3ftW0eGy8+GVUehRN4zLT4w F8lBkSc BdO0KQqqS316QeIhjXMjJlj rf6sow0ujySz6UoVtFHWrtd NvsWlkRML8x4CqZt41Q3Bto Vbmh6Py Ncw3gl67jBJwp5Y0lQY4Z6X mXRJrfuqzqFLqmAgfZN5gQX VpenejNZVzmI9kCMEpJ5m2O iAwLjA1 DSqtP7NiafQ5SWLgqVTdOLT ncROJbU3biogud2odthurTi EtVXExFJr0BYw5KBWxiAikU iBsZWZ0 UkH1HPV0nKFijW8jxNaxsne fxN4vTui+HLw7n6qhjONdHZ 1yeMU9FM66AY16xVQcm6B3k SD0B8Aa DXTqhweubuvltDX6RWPeNQN wwR81Oo1pcFzyQf6aKLXnTM Q9YAXghDIzL0DwsA6uUwMsS DAwMDAw E1ZedJCwVLxsH636NSaaJzY 2UVEomxZyQ2PiHFJbcMydZg T1h9B5Kt1RAX04KO91TP37c HXgq4L2 sQM7I8GwBSBozwcouzannMH 6QAGoHRPjxI83Uv1pgOztPi 6aYCFnRNZ2CIOboEMrE5Ynv O0bDtEy SATzQYUdN8FkoWSyBWknK48 8MEbpDlL8SWYlhyZzM9KhMU KqiSrnCaH7r6T8Xr7IGv83I A37SG05 cEUbz4Q6uBT4S9ZuXODqicc uunnpnOC5AZOlTUHhmZ58Ck 6tiRdcJz4hPHIbFSE8AMTwb RNnS5Bi bK5fOlRpGNMuPBStT9ZceTU aNFidY985WAjsXnG6EUEyym XpZ5JoMXJzlYzyEoW5l5L1T s0VOWlw ziz1W9KyKkurnYC+FD79OKF qCZ49fDZmiNEwp8yqxFn7Zg XlGFUxHKZ7sXkrOHber9YnP EKwO44n bGFw (more content not included)... Normal [facility] Consent for Treatmenton 10-2 Consent for Treatment [id number] D:127 Normal [facility] Gest Scr Glu 1 Hron 09-20-20 Glucose [Mass/Vol] 140 mg/dL Normal 55-140 [facility] Comment on above: Result Comment: Posi tive Screen =1 HR > 140mg/dL Performed By: #### 3 [id number] ####[facility] [address] [place] [address] Hct & Hgbon 09-20-2022 Hematocrit (Bld) [Volume fraction] 29.7 % Low 34.0-46.0 [facility] Comment on above: Performed By: #### 3 [id number] ####[facility] [address] [place] [address] Hemoglobin (Bld) [Mass/Vol] 10.1 g/dL Low 12.0-16.0 [facility] Comment on above: Performed By: #### 3 [id number] ####[facility] [address] [place] [address] Physician Orderon 09-20-2022 Physician Order [id number] CD:127 Normal [facility] Complete Blood Count Auto Di ffon 08-23-2022 Basophils (Bld) [#/Vol] 0.0 10*3/uL Normal 0.0-0.2 [facility] Comment on above: Result Comment: PERF ORMED BY: [place] [address] PATHOLOGIST [employer] JESUS JIN M.D. Performed By: #### M G, CMP, CBC #### [facility] [address] [place] [address] [place] Basophils/100 WBC (Bld) 0.4 % Normal . [facility] Comment on above: Performed By: #### M G, CMP, CBC #### [facility] [address] [place] [address] [place] Eosinophils (Bld) [#/Vol] 0.0 10*3/uL Normal 0.0-0.45 [facility] Comment on above: Performed By: #### M G, CMP, CBC #### [address] Eosinophils/100 WBC (Bld) 0.5 % Normal . [facility] Comment on above: Performed By: #### M G, CMP, CBC #### [address] Erythrocyte distribution width (RBC) [Ratio] 13.0 % Normal 11.9-15.3 [facility] Comment on above: Performed By: #### M Yomaira, CMP, CBC #### [address] Hematocrit (Bld) [Volume fraction] 33.9 % Low 34.0-46.4 [facility] Comment on above: Performed By: #### M Yomaira, CMP, CBC #### [address] Hemoglobin (Bld) [Mass/Vol] 11.3 g/dL Low 11.8-15.4 [facility] Comment on above: Performed By: #### M Yomaira, CMP, CBC #### [address] Lymphocytes (Bld) [#/Vol] 1.7 10*3/uL Normal 1.00-4.8 [facility] Comment on above: Performed By: #### Daniel G, CMP, CBC #### [address] Lymphocytes/100 WBC (Bld) 18.4 % Normal . [facility] Comment on above: Performed By: #### M G, CMP, CBC #### [address] MCH (RBC) [Entitic mass] 28.8 pg Normal 24.7-34.3 [facility] Comment on above: Performed By: #### M G, CMP, CBC #### [address] MCV (RBC) [Entitic vol] 86.5 fL Normal 80-100 [facility] Comment on above: Performed By: #### Daniel Burnette CMP, CBC #### [address] Mean Corpuscular HGB Conc 33.3 g/dL Normal 32.0-35.0 [facility] Comment on above: Performed By: #### Daniel Burnette, CMP, CBC #### [address] Monocytes (Bld) [#/Vol] 0.7 10*3/uL Normal 0.0-0.8 [facility] Comment on above: Performed By: #### Daniel Burnette CMP, CBC #### [address] Monocytes/100 WBC (Bld) 7.7 % Normal . [facility] Comment on above: Performed By: #### Daniel Burnette CMP, CBC #### [address] Neutrophils (Bld) [#/Vol] 6.8 10*3/uL Normal 1.8-7.7 [facility] Comment on above: Performed By: #### Daniel Burnette CMP, CBC #### [address] Neutrophils/100 WBC (Bld) 73.0 % Normal . [facility] Comment on above: Performed By: #### Daniel Burnette CMP, CBC #### [address] Nucleated RBC/100 WBC (Bld) [Ratio] 0.1 % Normal 0-0.5 [facility] Comment on above: Performed By: #### Daniel Burnette CMP, CBC #### [address] Platelet mean volume (Bld) [Entitic vol] 8.1 fL Normal 6.3-10.7 [facility] Comment on above: Performed By: #### Daniel Burnette CMP, CBC #### [place] [id number] [place] Platelets (Bld) [#/Vol] 305 10*3/uL Normal 150-450 [facility] Comment on above: Performed By: #### M Yomaira, CMP, CBC #### [facility] [address] [place] [address] RBC (Bld) [#/Vol] 3.92 10*6/uL Normal 3.60-5.00 [facility] Comment on above: Performed By: #### Daniel Burnette, CMP, CBC #### [address] WBC (Bld) [#/Vol] 9.3 10*3/uL Normal 4.5-11.0 [facility] Comment on above: Performed By: #### Daniel Burnette, CMP, CBC #### [address] Comprehensive Metabolic Pane siomara 08-23-2022 Albumin [Mass/Vol] 3.4 g/dL Normal 3.2-5.5 [facility] Comment on above: Performed By: #### Daniel Burnette, CMP, CBC #### [address] Albumin/Globulin [Mass ratio] 1.2 {ratio} Normal [facility] Comment on above: Performed By: #### Daniel Burnette, CMP, CBC #### [address] ALP [Catalytic activity/Vol] 56 U/L Normal 32-92 [facility] Comment on above: Performed By: #### Daniel Burnette, CMP, CBC #### [facility] [address] [place] [address] ALT [Catalytic activity/Vol] 26 U/L Normal 10-60 [facility] Comment on above: Performed By: #### Daniel Burnette, CMP, CBC #### [facility] [address] [place] [address] Anion gap [Moles/Vol] 12.9 mmol/L Normal 6.0-15.0 [facility] Comment on above: Performed By: #### Daniel Burnette, CMP, CBC #### [facility] [address] [place] [address] [place] AST [Catalytic activity/Vol] 22 U/L Normal 10-42 [facility] Comment on above: Performed By: #### M G, CMP, CBC #### [facility] [address] [place] [address] [place] Bilirubin [Mass/Vol] 1.0 mg/dL Normal 0.3-1.2 [facility] Comment on above: Performed By: #### M G, CMP, CBC #### [facility] [address] [place] [id number] [place] Calcium [Mass/Vol] 9.2 mg/dL Normal 8.2-10.2 [facility] Comment on above: Performed By: #### M Yomaira, CMP, CBC #### [facility] [address] [place] [id number] [place] Chloride [Moles/Vol] 100 mmol/L Normal 95-114 [facility] Comment on above: Performed By: #### M Yomaira, CMP, CBC #### [facility] [address] [place] [id number] [place] CO2 [Moles/Vol] 23.0 mmol/L Normal 22.0-30.0 [facility] Comment on above: Performed By: #### M Yomaira, CMP, CBC #### [facility] [address] [place] [id number] [place] Creatinine [Mass/Vol] 0.53 mg/dL Normal 0.44-1.03 [facility] Comment on above: Performed By: #### M Yomaira, CMP, CBC #### [facility] [address] [place] [id number] [place] Estimated GFR ( Chela > 60 [facility] Comment on above: Result Comment: GFR estimated reference range: According to KDOQI guidelines, <60 ml/min/1.73m2 is sufficient to diagnose a patient with chronic kidney disease. Performed By: #### M G, CMP, CBC #### [facility] [address] [place] [id number] [place] Estimated GFR (Non- Am > 60 [facility] Comment on above: Performed By: #### M Yomaira CMP, CBC #### [facility] [address] Globulin (S) [Mass/Vol] 2.9 g/dL Normal [facility] Comment on above: Performed By: #### M Yomaira CMP, CBC #### [facility] [address] [place] [address] [place] Glucose [Mass/Vol] 85 mg/dL Normal 70-100 [facility] Comment on above: Result Comment: [facility] Glucose Reference Range is dependent on time and content of last meal. Glucose of more than 200 mg/dL in a nonstressed, ambulatory subject supports the diagnosis of Diabetes Mellitus. ADA recommended reference range Performed By: #### M HA Burnette, CBC #### [facility] [address] Potassium [Moles/Vol] 3.9 mmol/L Normal 3.5-5.1 [facility] Comment on above: Performed By: #### Daniel Burnette CMP, CBC #### [facility] [address] Protein [Mass/Vol] 6.3 g/dL Normal 6.1-7.9 [facility] Comment on above: Performed By: #### Daniel Burnette CMP, CBC #### [facility] [address] Sodium [Moles/Vol] 132 mmol/L Low 136-146 [facility] Comment on above: Performed By: #### Daniel Burnette CMP, CBC #### [facility] [address] [place] [id number] [place] Urea nitrogen [Mass/Vol] 5 mg/dL Low 9-23 [facility] Comment on above: Performed By: #### Daniel Burnette CMP, CBC #### [facility] [address] [place] [id number] [place] Magnesiumon 08-23-2022 Magnesium [Mass/Vol] 1.6 mg/dL Normal 1.6-2.6 [facility] Comment on above: Result Comment: PERF ORMED BY: [facility] [address] [place] [address] PATHOLOGIST CAPACITOR TESTER JESUS JIN M.D. Performed By: #### M G, CMP, CBC #### [facility] [address] CHEMISTRYOrdered By: SYSTEM SYSTEM on 07-14-2022 [...] rate/Area] mL/min/1.73 m2 Normal >=59mL/min/1 .73 m2 [facility] Chem S Globulin (S) [Mass/Vol] 3.3 g/dL Normal 1.4 - 4.0 gm/dL [facility] Glucose [Mass/Vol] 99 mg/dL Normal 55 - 199 mg/dL [facility] Potassium [Moles/Vol] 3.5 mmol/L Normal 3.5 [...] 12.3 E9/L High 2.0 - 7.5 E9/L [facility] HemeAutoSS HEMATOLOGYOrdered By: Teena Quiroz on 07-14-2022 Erythrocyte distribution width (RBC) [Ratio] 12.9 % Normal 10.9 - 14.2 % [facility]eAuto[facility] Hematocrit (Bld) [Volume fraction] 33.6 % Low 34.0 - 46.0 % [facility]eAutoSS Hemoglobin (Bld) [Mass/Vol] 11.5 g/dL Low 12.0 - 16.0 gm/dL [facility]eAuto[facility] MCH (RBC) [Entitic mass] 28.5 pg Normal 27.0 - 34.0 pg [facility] MCHC (RBC) [Mass/Vol] 34.1 g/dL Normal 31.4 - 36.0 gm/dL [facility] MCV (RBC) [Entitic vol] 83.5 fL Normal 80.0 - 100.0 fL [facility] Platelet mean volume (Bld) [Entitic vol] 8.1 fL Normal 6.4 - 10.8 fL [facility]eAuto[facility] Platelets (Bld) [#/Vol] 271.0 E9/L Normal 150.0 - 500.0 E9/L [facility] RBC (Bld) [#/Vol] 4.0 E12/L Low 4.3 - 5.9 E12/L [facility]eAuto[facility] WBC corrected for nucl RBC Auto (Bld) [#/Vol] 13.9 E9/L High 4.0 - 11.0 E9/L [facility] URINALYSISOrdered By: Alliso n Tawana on [...] (Urine sed) [#/Area] 3-4 /HPF Normal 0-2/HPF [facility] UA Aut o SS Glucose Test strip (U) [Mass/Vol] Negative (07/14/22 5:00 AM) Normal Negative [facility] Auto SS Hemoglobin Ql (U) Trace *ABN* (07/14/22 5:00 AM) Invalid Interpretation Code Negative [facility] Auto SS Ketones (U) [Mass/Vol] Negative (07/14/22 5:00 AM) Normal Negative [facility] UA Auto SS [place]on.plasma/Lithiu m.RBC (Bld) [Mass ratio] 0-3 /HPF Normal 0-3/HPF [facility] UA Auto SS Mucus Ql (Urine sed) Trace (07/14/22 5:00 AM) Normal [facility] UA Auto SS Nitrite Ql (U) Negative (07/14/22 5:00 AM) Normal Negative [facility] UA Auto SS pH (U) 6.0 *NA* (07/14/22 5:00 AM) Invalid Interpretation Code 5.0 - 9.0 [facility] UA Auto SS Protein (U) [Mass/Vol] Negative (07/14/22 5:00 AM) Normal Negative [facility] UA Auto SS Specific gravity (U) [Rel density] 1.020 *NA* (07/14/22 5:00 AM) Invalid Interpretation Code 1.005 - 1.030 [facility] UA Auto SS UA Spec Desc Clean Catch (07/14/22 5:00 AM) Normal [facility] UA Auto SS Urobilinogen Qn (U) [id number] {Aspen'U}/dL Normal 0.0 - 1.0 EU/dL [facility] UA Auto SS WBC Auto Ql (U) Negative (07/14/22 5:00 AM) Normal Negative [facility] UA Auto SS WBC LM.HPF (Urine sed) [#/Area] 0-5 /HPF Normal 0-5/HPF [facility] UA Auto SS Complete Blood Count Auto Di ffon 05-16-2022 Basophils (Bld) [#/Vol] 0.0 10*3/uL Normal 0.0-0.2 [facility] Comment on above: Order Comment: Reaso n for Exam Encounter for care in first trimester of first preg Result Comment: PERF ORMED BY: [facility] [address] [place] [address] PATHOLOGIST CAPACITOR TESTER JESUS JIN M.D. Performed By: #### R VA W RFX, VZIGG, RUBELLA IGG, HIV SCREEN, HBSAG #### [facility] , #### CUU, CBC, HCGQNT #### [address] Basophils/100 WBC (Bld) 0.5 % Normal . [facility] Comment on above: Order Comment: Reaso n for Exam Encounter for care in first trimester of first preg Performed By: #### R VA W RFX, VZIGG, RUBELLA IGG, HIV SCREEN, HBSAG #### [facility] , #### CUU, CBC, HCGQNT #### [address] Eosinophils (Bld) [#/Vol] 0.1 10*3/uL Normal 0.0-0.45 [facility] Comment on above: Order Comment: Reaso n for Exam Encounter for care in first trimester of first preg Performed By: #### R VA W RFX, VZIGG, RUBELLA IGG, HIV SCREEN, HBSAG #### [facility] , #### CUU, CBC, HCGQNT #### [address] Eosinophils/100 WBC (Bld) 0.7 % Normal . [facility] Comment on above: Order Comment: Reaso n for Exam Encounter for care in first trimester of first preg Performed By: #### R VA W RFX, VZIGG, RUBELLA IGG, HIV SCREEN, HBSAG #### [facility] , #### CUU, CBC, HCGQNT #### [address] Erythrocyte distribution width (RBC) [Ratio] 13.0 % Normal 11.9-15.3 [facility] Comment on above: Order Comment: Reaso n for Exam Encounter for care in first trimester of first preg Performed By: #### R VA W RFX, VZIGG, RUBELLA IGG, HIV SCREEN, HBSAG #### [facility] , #### CUU, CBC, HCGQNT #### [facility] [address] Hematocrit (Bld) [Volume fraction] 37.8 % Normal 34.0-46.4 [facility] Comment on above: Order Comment: Reaso n for Exam Encounter for care in first trimester of first preg Performed By: #### R VA W RFX, VZIGG, RUBELLA IGG, HIV SCREEN, HBSAG #### [facility] , #### CUU, CBC, HCGQNT #### [address] Hemoglobin (Bld) [Mass/Vol] 12.7 g/dL Normal 11.8-15.4 [facility] Comment on above: Order Comment: Reaso n for Exam Encounter for care in first trimester of first preg Performed By: #### R VA W RFX, VZIGG, RUBELLA IGG, HIV SCREEN, HBSAG #### [facility] , #### CUU, CBC, HCGQNT #### [place] [address] [place] Lymphocytes (Bld) [#/Vol] 2.0 10*3/uL Normal 1.00-4.8 [facility] Comment on above: Order Comment: Reaso n for Exam Encounter for care in first trimester of first preg Performed By: #### R VA W RFX, VZIGG, RUBELLA IGG, HIV SCREEN, HBSAG #### [facility] , #### CUU, CBC, HCGQNT #### [facility] [address] [place] [address] [place] Lymphocytes/100 WBC (Bld) 24.2 % Normal . [facility] Comment on above: Order Comment: Reaso n for Exam Encounter for care in first trimester of first preg Performed By: #### R VA W RFX, VZIGG, RUBELLA IGG, HIV SCREEN, HBSAG #### [facility] , #### CUU, CBC, HCGQNT #### [address] MCH (RBC) [Entitic mass] 28.4 pg Normal 24.7-34.3 [facility] Comment on above: Order Comment: Reaso n for Exam Encounter for care in first trimester of first preg Performed By: #### R VA W RFX, VZIGG, RUBELLA IGG, HIV SCREEN, HBSAG #### [facility] , #### CUU, CBC, HCGQNT #### [address] MCV (RBC) [Entitic vol] 85.0 fL Normal 80-100 [facility] Comment on above: Order Comment: Reaso n for Exam Encounter for care in first trimester of first preg Performed By: #### R VA W RFX, VZIGG, RUBELLA IGG, HIV SCREEN, HBSAG #### [facility] , #### CUU, CBC, HCGQNT #### [address] Mean Corpuscular HGB Conc 33.5 g/dL Normal 32.0-35.0 [facility] Comment on above: Order Comment: Reaso n for Exam Encounter for care in first trimester of first preg Performed By: #### R VA W RFX, VZIGG, RUBELLA IGG, HIV SCREEN, HBSAG #### [facility] , #### CUU, CBC, HCGQNT #### [address] Monocytes (Bld) [#/Vol] 0.8 10*3/uL Normal 0.0-0.8 [facility] Comment on above: Order Comment: Reaso n for Exam Encounter for care in first trimester of first preg Performed By: #### R VA W RFX, VZIGG, RUBELLA IGG, HIV SCREEN, HBSAG #### [facility] , #### CUU, CBC, HCGQNT #### [place] [address] [place] [address] [place] Monocytes/100 WBC (Bld) 9.1 % Normal . [facility] Comment on above: Order Comment: Reaso n for Exam Encounter for care in first trimester of first preg Performed By: #### R VA W RFX, VZIGG, RUBELLA IGG, HIV SCREEN, HBSAG #### [facility] , #### CUU, CBC, HCGQNT #### [address] Neutrophils (Bld) [#/Vol] 5.5 10*3/uL Normal 1.8-7.7 [facility] Comment on above: Order Comment: Reaso n for Exam Encounter for care in first trimester of first preg Performed By: #### R VA W RFX, VZIGG, RUBELLA IGG, HIV SCREEN, HBSAG #### [facility] , #### CUU, CBC, HCGQNT #### [address] Neutrophils/100 WBC (Bld) 65.5 % Normal . [facility] Comment on above: Order Comment: Reaso n for Exam Encounter for care in first trimester of first preg Performed By: #### R VA W RFX, VZIGG, RUBELLA IGG, HIV SCREEN, HBSAG #### [facility] , #### CUU, CBC, HCGQNT #### [facility] [address] [place] [address] [place] Nucleated RBC/100 WBC (Bld) [Ratio] 0.0 % Normal 0-0.5 [facility] Comment on above: Order Comment: Reaso n for Exam Encounter for care in first trimester of first preg Performed By: #### R VA W RFX, VZIGG, RUBELLA IGG, HIV SCREEN, HBSAG #### [facility] , #### CUU, CBC, HCGQNT #### [facility] [address] [place] [address] Platelet mean volume (Bld) [Entitic vol] 7.9 fL Normal 6.3-10.7 [facility] Comment on above: Order Comment: Reaso n for Exam Encounter for care in first trimester of first preg Performed By: #### R VA W RFX, VZIGG, RUBELLA IGG, HIV SCREEN, HBSAG #### [facility] , #### CUU, CBC, HCGQNT #### [facility] [address] Platelets (Bld) [#/Vol] 347 10*3/uL Normal 150-450 [facility] Comment on above: Order Comment: Reaso n for Exam Encounter for care in first trimester of first preg Performed By: #### R VA W RFX, VZIGG, RUBELLA IGG, HIV SCREEN, HBSAG #### [facility] , #### CUU, CBC, HCGQNT #### [facility] [address] RBC (Bld) [#/Vol] 4.45 10*6/uL Normal 3.60-5.00 [facility] Comment on above: Order Comment: Reaso n for Exam Encounter for care in first trimester of first preg Performed By: #### R VA W RFX, VZIGG, RUBELLA IGG, HIV SCREEN, HBSAG #### [facility] , #### CUU, CBC, HCGQNT #### [facility] [address] WBC (Bld) [#/Vol] 8.4 10*3/uL Normal 4.5-11.0 [facility] Comment on above: Order Comment: Reaso n for Exam Encounter for care in first trimester of first preg Performed By: #### R VA W RFX, VZIGG, RUBELLA IGG, HIV SCREEN, HBSAG #### [facility] , #### CUU, CBC, HCGQNT #### [facility] [address] HCG,Quantitativeon 2 HCG,Quantitative 329279.00 m[iU]/mL Normal [facility] Comment on above: Order Comment: Reaso n for Exam Encounter for care in first trimester of first preg Result Comment: Appr oximate Approximate hCG Gestational Age Range (mIU/ml) (weeks) 0.2-1 5-50 1-2 50-500 2-3 100-5,000 3-4 500-10,000 4-5 1,000-50,000 5-6 10,000-100,000 6-8 15,000-200,000 8-12 10,000-100,000 PERFORMED BY: [place] [address] PATHOLOGIST CAPACITOR TESTER JESUS IJN M.D. Performed By: #### R VA W RFX, VZIGG, RUBELLA IGG, HIV SCREEN, HBSAG #### [facility] , #### CUU, CBC, HCGQNT #### [facility] [address] [place] [address] HIV 1/O/2 Antigen/Antibodyon 05-16-2022 HIV Screen 4th Generation Non-Reactive Normal Non Reactive [facility] Comment on above: Order Comment: Reaso n for Exam Encounter for care in first trimester of first preg Result Comment: HIV Negative HIV-1/HIV-2 antibodies and HIV-1 p24 antigen were NOT detected. There is no laboratory evidence of HIV infection. Performed at: [facility] [id number] Investigator: Cm Sandoval PhD, Phone: [phone] Performed By: #### M G, CMP, CBC #### [facility] [address] [place] [address] Hepatitis B Surface Antigeno n 05-16-2022 HBsAg Screen Negative Normal Negative [facility] Comment on above: Order Comment: Reaso n for Exam Encounter for care in first trimester of first preg Result Comment: Perf ormed at: [address] [id number] Investigator: Cm Sandoval PhD, Phone: [phone] PERFORMED BY: [address] [place] [address] PATHOLOGIST CAPACITOR TESTER JESUS JIN M.D. Performed By: #### R VA W RFX, VZIGG, RUBELLA IGG, HIV SCREEN, HBSAG #### [facility] , #### CUU, CBC, HCGQNT #### [facility] [address] [place] [address] RPR w/rfx to Quant TP Abson 05-16-2022 RPR, Rfx Quant RPR Non-Reactive Normal Non Reactive [facility] Comment on above: Order Comment: Reaso n for Exam Encounter for care in first trimester of first preg Result Comment: PERF ORMED BY: [place] [address] PATHOLOGIST CAPACITOR TESTER JESUS JIN M.D. Performed By: #### M G, CMP, CBC #### [place] [address] [place] Rubella IgG Antibodyon 05-16 Rubella IgG Antibody <0.90 Low Immune >0.99 [facility] Comment on above: Order Comment: Reaso n for Exam Encounter for care in first trimester of first preg Result Comment: Non- immune <0.90 Equivocal 0.90 - 0.99 Immune >0.99 Performed at: [facility] [id number] Investigator: Cm Sandoval PhD, Phone: [phone] Performed By: #### R VA W RFX, VZIGG, RUBELLA IGG, HIV SCREEN, HBSAG #### [facility] , #### CUU, CBC, HCGQNT #### [facility] [address] [place] [address] Type and Screenon 05-16-2022 ABO and Rh group Nom (Bld) Blood group O Rh(D) positive Normal [facility] Comment on above: Order Comment: Reaso n for Exam Encounter for care in first trimester of first preg Result Comment: PERF ORMED BY: [address] [place] [address] PATHOLOGIST CAPACITOR TESTER JESUS JIN M.D. Performed By: #### R VA W RFX, VZIGG, RUBELLA IGG, HIV SCREEN, HBSAG #### [facility] , #### CUU, CBC, HCGQNT #### [facility] [address] [place] [address] Urine Cultureon 05-16-2022 Bacteria identified Cx Nom (U) Reason for Exam Encounter for care in first trimester of first preg Reason for Exam: Encounter for care in first trimester of first preg 50,000 colonies/ml mixed bacterial skin contaminants 2 Days PERFORMED BY: [place] [address] PATHOLOGIST CAPACITOR TESTER JESUS JIN M.D. [facility] Comment on above: Performed By: #### R VA W RFX, VZIGG, RUBELLA IGG, HIV SCREEN, HBSAG #### [facility] , #### CUU, CBC, HCGQNT #### [place] [address] [place] Varicella IgG Antibodyon Varicella IgG Antibody <135 Low Immune >165 [facility] Comment on above: Order Comment: Reaso n for Exam Encounter for care in first trimester of first preg Result Comment: Nega tive <135 Equivocal 135 - 165 Positive >165 A positive result generally indicates exposure to the pathogen or administration of specific immunoglobulins, but it is not indication of active infection or stage of disease. Performed at: - [facility] [address] [id number] Investigator: Cm Sandoval PhD, Phone: [phone] Performed By: #### R VA W RFX, VZIGG, RUBELLA IGG, HIV SCREEN, HBSAG #### [facility] , #### CUU, CBC, HCGQNT #### [facility] [address] [place] [address] CHEMISTRYOrdered By: SYSTEM SYSTEM on 04-25-2022 Albumin [...] 299.0 E9/L Normal 150.0 - 500.0 E9/L [facility] HemeAutoSS RBC (Bld) [#/Vol] 4.8 E12/L Normal 4.3 - 5.9 E12/L [facility] HemeAutoSS WBC corrected for nucl RBC Auto (Bld) [#/Vol] 5.9 E9/L Normal 4.0 - 11.0 E9/L [facility] HemeAutoSS LMPon 02-09-2022 Fall risk assessment a) No falls within the last year [id number] man 320 Work Phone: Last menstrual period start date unsure [id number] man 320 Work Phone: Tobacco use status CPHS b) No [id number] man 320 Work Phone: 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 endometriosis: discussed options continue norethindrone rx'd orilissa 200 mg bid rtc in 3 months Chief Complaint patient here to discuss pain related to endometriosis, declined manager mobility. [employer] History of Present Awzwxyw6 yo presents as a follow up for [...] again engaged x 1 year working at [employer] in [place] Review of Systems Constitutional: no fever, no [...] hours Vitals Vital Signs Recorded: 09Feb2022 11:41AM [id number] Twpxcecrn77 Height5 ft 2 in Wotthi094 lb BMI Mwesljaebr43.51 kg/m2 BSA Calculated1.61 Tobacco Useb) No Fall [...] Tashi Lopez MD 09/29/21 Final result Normal [facility] PRODUCT INSPECTION SUPERVISOR - Office Visiton 07-0 PRODUCT INSPECTION SUPERVISOR - Office Visit Diagnoses/Problems Assessed Anxiety (300.00) (F41.9) Orders Start: FLUoxetine HCl - 20 MG Oral Capsule; TAKE 1 CAPSULE Daily Provider Impressions 26 yo 1. endometriosis - discussed treatment options rx'd Prozac for mood rx'd norethindrone rtc in 3 months Chief Complaint patient to follow up on medication from last visit in march 2021, declined manager mobility. [employer] History of Present Kglwqqe26 yo with endometriosis was on norethindrone d/c'd [...] Every 6 hours Vitals Vital Signs Recorded: [id number] 01:19PM [id number] Yqxniijwb16 Height5 ft 2 in Wgjfys111 lb BMI Jlpmbwyrno15.58 kg/m2 BSA Calculated1.53 Tobacco Useb) No Fall Screeninga) No falls within the last year [id number] Pain Scale0 Signatures Electronically signed by : Charlene Rodriguez DO; Jun 03 2021 10:55AM EST (Author) Normal [employer] PRODUCT INSPECTION SUPERVISOR - Office Visiton 05-2 PRODUCT INSPECTION SUPERVISOR - Office Visit Diagnoses/Problems Assessed Endometriosis (617.9) (N80.9) Never smoker Orders Stop: Norethindrone Acetate 5 MG Oral Tablet Tobacco Use Screening; Status:Complete; Done: [id number] Provider Impressions 26 yo 1. endometriosis: rx'd norethindrone referral to pelvic floor PT rtc in 3-6 months if continues to have pain, will consider centrally acting neuromodulator Chief Complaint Patient presents today for f/u for endometriosis PAP per patient 2019 WNL Dedicated Driver declined -CATY,REGIONAL FORESTER LMP 04/11/21 History of Present Hqdgmac35 yo with endometriosis bleeding once per month, [...] Apr 20 2021 11:04AM EST (Author) [facility] [employer] Tobacco Screening.on Fall risk assessment a) No falls within the last year CL-SFDWB-Ixa man 320 Work Phone: Last menstrual period start date 11Apr2021 UM-THPAN-Rjc man 320 Work Phone: Tobacco Screening. b) No MG-OBG YN-Ris man 320 Work Phone: Radiologyon 04-14-2021 US Kidney - bilateral Normal [facility]- U[facility] [place] Work Phone: US RENAL BILATon 04-14-2021 US RENAL BILAT Patient Name: DRISS COPE STUDY: US RENAL BILAT; 04/14/2021 1:14 pm INDICATION: Recurrent UTI. COMPARISON: None. ACCESSION NUMBER(S): [id number] ORDERING CLINICIAN: NICHOLAS CHAU TECHNIQUE: Multiple images [...] Electronically signed by: GENEVIEVE BREEN MD Normal [facility] Office Visit (Urology)on Follow-up visit Diagnoses/Problems Assessed Recurrent UTI (599.0) (N39.0) Orders Recurrent UTI Start: Nitrofurantoin Monohyd Macro 100 MG Oral Capsule; TAKE 1 CAPSULE Other Please take one capsule after sexual intercourse to prevent UTI Rx By: Nicholas Chau; Dispense: 30 Days ; #:30 Capsule; Refill: 11;For: Recurrent UTI; ROSY = N; Verified Transmission to [facility] Ultrasound Kidney Bilateral; Status:Hold For - Scheduling; Requested for:[id number]; Perform:[facility] Imaging; Due:[id number]; Last Updated By:Isela Terrazas; 04/01/2021 9:16:17 AM;Ordered; [...] UTI; ROSY = N; [facility] Provider Impressions 26 year old female with history of endometriosis presents today via telehealth as a new patient for evaluation of recurrent UTIs. She reports getting UTIs at least once per month, noting occasional nocturia. Symptoms include burning, frequency, and back pain. She states that some UTIs are related to sexual intercourse but most are not. Patient reports she saw Dr. Booth at [facility] in [place], noting she was only treated with medications and urethral dilation for a supposed stricture. Denies gross hematuria. Patient is a non-smoker. Urine culture from [facility] on 03/04/21 was positive for E. coli, [...] has no other questions at this time. I, Patricia Ruano, am scribing for and in the presence [...] consent was requested and obtained from DRISS COPE on this date, 04/01/2021 08:40 AM , for a telehealth visit. NPV - recurrent UTI History of Present Ztnvbny46 year old female with history of endometriosis presents today via telehealth as a new patient for evaluation of recurrent UTIs. She reports getting UTIs at least once per month, noting occasional nocturia. Symptoms include burning, frequency, and back pain. She states that some UTIs are related to sexual intercourse but most are not. Patient reports she saw Dr. Booth at [facility] in [place], noting she was only treated with medications [...] DATE OF EXAM: Nov 05 2020 12:26PM [facility] 0017 - [place] GASTRIC EMPTYING SOLID / PROCEDURE REASON: Nausea [...] 4 HOURS IS CONSISTENT WITH MILD GASTROPARESIS. Sorter Lumber Straightener: PSCB Transcribe Date/Time: Nov 05 2020 1:09P Dictated by : BRUNO PEREA MD This examination was interpreted and the report reviewed and electronically signed by: BRUNO PEREA MD on Nov 05 2020 1:24PM EST [id number] [facility] ANES POSTPROC EVALon 020 ANES POSTPROC EVAL HNO ID: [id number] Author: Austin Story Service: ? Author Type: Anesthesiologist Type: Anesthesia Postprocedure Evaluation Filed: 10/25/2020 2:52 PM Note Text: POST ANESTHESIA EVALUATION NOTE : 1995 Procedure Summary Date: 10/25/20 Room / Location: ENDO 01 / ENDO Anesthesia Start: 1324 [...] October 25, 2020 TIME: 2:52 PM CSN: [id number] [facility] ANES PRE-OPon 10-25-2020 ANES PRE-OP HNO ID: [id number] Author: Austin Story Service: ? Author Type: [...] October 25, 2020 TIME: 1:08 PM CSN: [id number] Normal [facility] SURGICAL PATHOLOGYon 020 SURGICAL PATHOLOGY Specimen originated from [facility] Specimen #: [id number] Submitting Physician: DAVID CRUZ MD FINAL DIAGNOSIS 1. Small bowel, biopsy (A) - Small bowel mucosa with no pathologic diagnostic abnormality; negative for celiac disease, granulomas and dysplasia. 2. Stomach, biopsy (B) - Gastric oxyntic-type mucosa with no pathologic diagnostic abnormality; see comment. /[facility] 10/26/2020 COMMENT 2. No microorganisms morphologically compatible [...] in one cassette. Gross examination performed at [facility], [address] [place] [address] EJ 10/25/2020 7:59:40 PM Date of Report: 10/26/2020 Date of Procedure: 10/25/2020 Date of Receipt: 10/25/2020 Submitted by: DAVID CRUZ MD Location: AV[facility] Diagnostic interpretation performed at [facility], [address] [place] [address]. CLIA Number: [id number] Normal [facility] Reference Lab Comment on above: Performed By: #### S #### See report for performing lab information. SURGICAL PATHOLOGY Specimen originated from [facility] Specimen #: [id number] Submitting Physician: DAVID CRUZ MD FINAL DIAGNOSIS 1. Small bowel, biopsy (A) - Small bowel mucosa with no pathologic diagnostic abnormality; negative for celiac disease, granulomas and dysplasia. 2. Stomach, biopsy (B) - Gastric oxyntic-type mucosa with no pathologic diagnostic abnormality; see comment. SS/ee 10/26/2020 COMMENT 2. No microorganisms morphologically compatible [...] in one cassette. Gross examination performed at [facility], [address] [place] [address] 10/25/2020 7:59:40 PM Date of Report: 10/26/2020 Date of Procedure: 10/25/2020 Date of Receipt: 10/25/2020 Submitted by: DAVID CRUZ MD Location: [facility] Diagnostic interpretation performed at [facility], [address] [place] [address]. CLIA Number: [id number] [facility] ABO/RH GROUP TESTon 09-01-20 ABO TYPE O Normal [facility] Comment on above: Performed By: #### V ERAB #### [facility] [address] [place] [address] RH TYPE Positive Normal [facility] Comment on above: Performed By: #### V ERAB #### [facility] [address] [place] [address] [facility] Surgical Pathology Dep artmenton 09-01-2020 [facility] Surgical Pathology Department Name DRISS COPE Pathologist: ASHLEY HURTADO MD Date of Procedure: 09/01/2020 Date Received: 09/01/2020 Date Reported 09/03/2020 Submitting Physician: CHARLENE RODRIGUEZ D.O. Location: [facility] External # FINAL DIAGNOSIS A. LEFT PELVIC [...] D. Right pelvic sidewall peritoneum are 2 ruzb-fup-cgv, irregular fragments of tissue measuring 1.3 x [...] in toto in one cassette. SB amisha/09/02/2020 [facility] Department of Pathology [address] [place] [address] Comment on above: Performed By: #### A #### [facility] [address] [facility] [address] History and Physical - Surge ry > [...] T&S: O+, COVID-19: negative OB Hx: None. Customer Acquisition Manager Hx: As above. PMHx: endometriosis Surg Hx: diagnostic laparoscopy, appendectomy (2015) Meds: Meloxicam, Davie-Linyah, Norethindrone acetate Social Hx: No tobacco, no [...] the note. I personally evaluated the patient [id number] Attending Provider Inpatient Certification StatementObservation patient/other outpatient [...] 01-Sep-2020 10:04 by Charlene Rodriguez () Normal [facility] Homegoing Instructionson Homegoing Instructions Additional Instructions: Handouts Given: Topic 1Anesthesia Homegoing Instructions Topic 2Surgical Site Infection Handout Topic 3New Medication Education Topic 4Suggamedex handout Electronic Signatures: Aminata Gomez) (Signed 01-Sep-2020 16:07) Authored: Additional Instructions Last Updated: 01-Sep-2020 16:07 by Aminata Gomez (DIALLO) Normal [facility] Patient Profile - Preop v2on 09-01-2020 Patient Profile - Preop v2 Profile: Initial Info: How to be Addressedalexis Spoken Language PreferredEnglish Are you currently using the Personal Electronic Health Record or [employer] Stated Reason for Admissionseeing if my endometriosis is back Primary Contact Name and Numberlogan [phone] Patient Belongingsclothing locker glasses with bf Medications Brought to Hospital[facility] General Health: Weight in kg55.6 kilogram(s) Weight in hnw758.5 pound(s) Weight Methodactual (measured) Scale Typestanding Height [...] Arrangementshouse Lives Withparent(s) Resource/Environmental Concernsnone Anticipated Transition [employer] Anticipated at Transitionnone Substance: Current or [...] Learning Preferencesverbal instruction Cultural Considerationsnone Developmental Considerationsnone Nondenominational Considerationsnone Other learner availableno [place] RiskPatient location auto qualifies him/her for HIGH RISK. Are there any cultural, spiritual, adventism practices/values/needs that are important for us to [...] Surgery > 30 days 01-Sep-2020 03:42 Normal [facility] Preop Checkliston 09-01-2020 Preop Checklist Preop Checklist: Preop Checklist: Arrival [id number] Arrival Time12:30 Procedure Typelaparoscopic endometriosis excision NPO [id number] 00:00 ID Band Onyes Allergy Bandno known allergies Consent Signedyes H&P Completepending Anesthesia Assessment Completedpending EKG Performedsee results tab Chest X-Ray Performedsee results tab HCG Urine TestComplete Chlorhexadine Bath Givennot applicable Nasal Antiseptic Appliednot applicable Hair Washedyes Soap and water bath with hair shampoo the night before surgeryyes Hat placed on prior to transportnot applicable SCD's Appliedsent to [...] Language / CommunicationEnglish Electronic Signatures: Sierra Kraft (DIALLO) (Signed 01-Sep-2020 12:35) Authored: Preop Checklist Last Updated: 01-Sep-2020 12:35 by Sierra Kraft (DIALLO) Normal [facility] ANTIBODY IDENT.on 08-31-2020 ANTIBODY IDENT. SEE BELOW Normal [facility] Comment on above: Result Comment: NO C LINICALLY SIGNIFICANT ANTIBODIES IDENTIFIED. Performed By: #### A BID #### [facility] [address] [place] [address] CBCon 08-30-2020 Erythrocyte distribution width (RBC) [Ratio] 12.1 % Normal 11.5 - 14.5 [facility] Comment on above: Performed By: #### C BC #### [address] [id number] Hematocrit (Bld) [Volume fraction] 39.6 % Normal 36.0 - 46.0 [facility] Comment on above: Performed By: #### C BC #### [address] [id number] Hemoglobin (Bld) [Mass/Vol] 12.6 g/dL Normal 12.0 - 16.0 [facility] Comment on above: Performed By: #### C BC #### [address] [id number] MCHC (RBC) [Mass/Vol] 31.8 g/dL Low 32.0 - 36.0 [facility] Comment on above: Performed By: #### C BC #### [address] [id number] MCV (RBC) [Entitic vol] 90 fL Normal 80 - 100 [facility] Comment on above: Performed By: #### C BC #### [address] [id number] Platelets (Bld) [#/Vol] 333 10*3/uL Normal 150 - 450 [facility] Comment on above: Performed By: #### C BC #### [address] [id number] RBC 4.42 x10E12/L Normal 4.00 - 5.20 [facility] Comment on above: Performed By: #### C BC #### [address] [id number] WBC (Bld) [#/Vol] 5.6 10*3/uL Normal 4.4 - 11.3 [facility] Comment on above: Performed By: #### C BC #### [address] [id number] CORONAVIRUS 2019, SCREEN ASY MPTOMATICon 08-30-2020 SARS-CoV-2 (COVID-19) RNA TEAN+probe Ql (Unsp spec) Not detected Normal Not Detected [facility] Comment on above: Result Comment: This assay [...] patient management decisions. Fact sheet for providers: https://www.fda.gov/media/585676/download Fact sheet for patients: https://www.fda.gov/media/291099/download This test has received FDA Emergency Use Authorization (EUA) and has been verified by [facility] ([facility]). This test is only authorized for the duration of time that circumstances exist to justify the authorization of the emergency use of in vitro diagnostic tests for the detection of SARS-CoV-2 virus and/or diagnosis of COVID-19 infection under section 564(b)(1) of the Act, 21 U.S.C. 360bbb-3(b)(1), unless the authorization is terminated or revoked sooner. [facility] is certified under CLIA-88 as qualified to perform high complexity testing. Testing is performed in the [facility] laboratories located at [address] [place] [address]. Performed By: #### C OVSC #### [place] [address] Lab Specimen Source Nasal, Nasopharyngeal Normal [facility] Comment on above: Performed By: #### C OVSC #### [place] [address] TYPE + SCREENon 08-30-2020 ABO TYPE O Normal [facility] Comment on above: Performed By: #### T +S #### [facility] [address] [place] [address] RH TYPE Positive Normal [facility] Comment on above: Performed By: #### T +S #### [facility] [address] [place] [address] ABO TYPE Canceled Normal [facility] Comment on above: Order Comment: TEST TYPE + SCREEN WAS CANCELLED, 08/30/2020 13:37 JOP. Performed By: #### T +S #### [address] [place] [address] RH TYPE Canceled Normal [facility] Comment on above: Order Comment: TEST TYPE + SCREEN WAS CANCELLED, 08/30/2020 13:37 JOP. Performed By: #### T +S #### [address] [place] [address] HOSPon 07-29-2020 HOSP Patient:Nito Cope MRN: Height:5' 2 (1.575 m) Weight:120 [...] for the following basenames: K,HCT Progress Notes ([facility] REJ AV4): Jaquelin Wesley Ma 10/19/2020 2:35 [...] 1 10 oz. Bottle of Magnesium Citrate (Lemon/Andreafski) ? A test for COVID 19 test [...] toast without seeds (not multigrain); pretzels; waffles, Polish toast and pancakes; white rice, noodles, pasta, macaroni, peeled cooked potatoes; Special K, Rice Krispies or [place] Flakes cereals; ripe bananas; melons (except watermelon [...] carbonated beverages such as chi aislinn or lemon-chilkoot soda; Gatorade? or other sports drinks (not [...] make sure you have a responsible adult electric lift truck driver to take you home after procedure. Due to having sedation, you may not drive the rest of the day. ? If you need to reschedule, please call [phone] ?Date/Provider Dr Cruz Procedure:colonoscpy Facility:[facility] Prep ordered( if aware):miralax Knowledge of prep instructions:posted to [facility] Diabetic:no Blood Thinners:no Pacemaker with defibrillator:no left message for patient to return call. Nurse triage please give below message. PLEASE READ PATIENT INSTRUCTIONS BELOW. THANK YOU. Normal [facility] PROGRESSon 07-29-2020 PROGRESS HNO ID: [id number] Author: Fito Stapleton (Rt) Service: Radiology Author Type: Irrigation Technician Type: Progress Notes Filed: 07/29/2020 11:06 AM [...] RT Daya July 29, 2020 11:01 AM [facility] XR ABD 2V SUPINE W UPR/DECUB /CTLon 07-29-2020 XR ABD 2V SUPINE W UPR/DECUB/CTL * * *Final Report* * * DATE OF EXAM: Jul 29 2020 11:09AM X 5356 - XR ABD 2V SUPINE W [...] structures are normal. No other significant abnormality. Sorter Lumber Straightener: PSCB Transcribe Date/Time: Jul 29 2020 11:19A Dictated by : LALI ORNELAS MD This examination was interpreted and the report reviewed and electronically signed by: LALI ORNELAS MD on Jul 29 2020 11:19AM EST [id number] [facility] Vital Signs Date Time Vital Sign Value Performing Clinician Facility 01-10-2024 10:55-0500 Body mass index (BMI) [Ratio] 28.17 kg/m2 Nathan Kiesha DO Work Phone: [facility] 01-10-2024 10:55-0500 Body weight 69.85 kg Nathan Kiesha DO Work Phone: [facility] 01-10-2024 10:55-0500 Diastolic blood pressure 84 mm[Hg] Nathan Kiesha DO Work Phone: [facility] 01-10-2024 10:55-0500 Systolic blood pressure 128 mm[Hg] Nathan Kiesha DO Work Phone: [facility] 09-12-2023 17:31-0400 Body temperature 98.96 [degF] [facility] 09-12-2023 17:31-0400 Diastolic blood pressure 91 mm[Hg] [facility] 09-12-2023 17:31-0400 FIO2 99 % Vongabriela Loco [facility] 09-12-2023 17:31-0400 Heart rate 122 /min Vongabriela Loco [facility] 09-12-2023 17:31-0400 Respiratory rate 16 /min Vongabriela Lcoo [facility] 09-12-2023 17:31-0400 Systolic blood pressure 135 mm[Hg] [facility] 05-01-2023 10:55-0400 Body height 157.5 cm Srinivasa Reaper MUSTANGER.SENIOR DIRECTOR INSIGHT Work Phone: [facility] 05-01-2023 10:55-0400 Body weight 64.86 kg Srinivasa Reaper MUSTANGER.SENIOR DIRECTOR INSIGHT Work Phone: [facility] 05-01-2023 10:55-0400 Diastolic blood pressure 64 mm[Hg] Srinivasa Reaper MUSTANGER.SENIOR DIRECTOR INSIGHT Work Phone: [facility] 05-01-2023 10:55-0400 Systolic blood pressure 148 mm[Hg] Srinivasa Downs APRN.SENIOR DIRECTOR INSIGHT Work Phone: [facility] 01-31-2023 19:18-0500 Diastolic blood pressure 82 mm[Hg] [facility] 01-31-2023 19:18-0500 Heart rate 98 /min [facility] 01-31-2023 19:18-0500 Nursing Progress Note Reason Other: this RN discharged pt. pt verbalizes understanding and denies questiosn prior to discharge. [facility] 01-31-2023 19:18-0500 Respiratory rate 16 /min [facility] 01-31-2023 19:18-0500 SaO2% (BldA) [Mass fraction] 100 % [facility] 01-31-2023 19:18-0500 Systolic blood pressure 126 mm[Hg] [facility] 01-31-2023 18:00-0500 Diastolic blood pressure 92 mm[Hg] [facility] 01-31-2023 18:00-0500 Heart rate 110 /min [facility] 01-31-2023 18:00-0500 Mean blood pressure 107 mm[Hg] [facility] 01-31-2023 18:00-0500 SaO2% (BldA) [Mass fraction] 99 % [facility] 01-31-2023 18:00-0500 Systolic blood pressure 138 mm[Hg] [facility] 01-31-2023 17:00-0500 Diastolic blood pressure 97 mm[Hg] [facility] 01-31-2023 17:00-0500 Mean blood pressure 104 mm[Hg] [facility] 01-31-2023 17:00-0500 Systolic blood pressure 117 mm[Hg] [facility] 01-31-2023 16:38-0500 Heart rate 105 /min [facility] 01-31-2023 16:38-0500 Mean blood pressure 114 mm[Hg] [facility] 01-31-2023 16:38-0500 Respiratory rate 18 /min [facility] 01-31-2023 13:49-0500 Body temperature 97.88 [degF] [facility] 01-31-2023 13:49-0500 Heart rate 118 /min [facility] 12-30-2022 14:55-0500 Body temperature 97.88 [degF] [facility] 12-30-2022 14:55-0500 Diastolic blood pressure 81 mm[Hg] [facility] 12-30-2022 14:55-0500 Heart rate 84 /min [facility] 12-30-2022 14:55-0500 Mean blood pressure 100 mm[Hg] [facility] 12-30-2022 14:55-0500 Respiratory rate 20 /min [facility] 12-30-2022 14:55-0500 SaO2% (BldA) [Mass fraction] 98 % [facility] 12-30-2022 14:55-0500 Systolic blood pressure 137 mm[Hg] [facility] 12-30-2022 14:35-0500 Body temperature 97.88 [degF] [facility] 12-30-2022 14:35-0500 Diastolic blood pressure 79 mm[Hg] [facility] 12-30-2022 14:35-0500 Heart rate 82 /min [facility] 12-30-2022 14:35-0500 Mean blood pressure 94 mm[Hg] [facility] 12-30-2022 14:35-0500 Respiratory rate 16 /min [facility] 12-30-2022 14:35-0500 SaO2% (BldA) [Mass fraction] 97 % [facility] 12-30-2022 14:35-0500 Systolic blood pressure 123 mm[Hg] [facility] 12-30-2022 13:35-0500 Body temperature 97.88 [degF] [facility] 12-30-2022 13:35-0500 Diastolic blood pressure 70 mm[Hg] [facility] 12-30-2022 13:35-0500 Heart rate 80 /min [facility] 12-30-2022 13:35-0500 Mean blood pressure 89 mm[Hg] [facility] 12-30-2022 13:35-0500 Respiratory rate 17 /min [facility] 12-30-2022 13:35-0500 SaO2% (BldA) [Mass fraction] 96 % [facility] 12-30-2022 13:35-0500 Systolic blood pressure 126 mm[Hg] [facility] 12-30-2022 13:00-0500 Respiratory rate 12 /min [facility] 12-30-2022 12:55-0500 Respiratory rate 9 /min [facility] 12-30-2022 12:50-0500 Respiratory rate 10 /min [facility] 12-30-2022 08:15-0500 Body temperature 98.24 [degF] [facility] 12-30-2022 08:15-0500 Heart rate 111 /min [facility] 11-27-2022 22:26-0500 Hourly Rounding Fredi DORSEY [facility] Comment on above: Result Comment: ensured that all pt belo ngings are sent with pt. pt has no questions or concerns. report given to EMS. pt stable and no s/s of distress. pt off unit to transfer 11-27-2022 22:00-0500 Diastolic blood pressure 97 mm[Hg] Fredi KARASIK [facility] 11-27-2022 22:00-0500 Heart rate 134 /min Fredi KARASIK [facility] 11-27-2022 22:00-0500 Hourly Rounding Fredi KARASIK [facility] 11-27-2022 22:00-0500 Mean blood pressure 116 mm[Hg] Fredi KARASIK [facility] 11-27-2022 22:00-0500 Systolic blood pressure 154 mm[Hg] Fredi KARASIK [facility] 11-27-2022 21:50-0500 Blood Pressure Location Fredi KARASIK [facility] 11-27-2022 21:50-0500 Diastolic blood pressure 90 mm[Hg] Fredi KARASIK [facility] 11-27-2022 21:50-0500 Heart rate 133 /min Fredi KARASIK [facility] 11-27-2022 21:50-0500 Hourly Rounding Fredi KARASIK [facility] 11-27-2022 21:50-0500 Mean blood pressure 113 mm[Hg] Fredi KARASIK [facility] 11-27-2022 21:50-0500 Respiratory rate 18 /min Fredi KARASIK [facility] 11-27-2022 21:50-0500 SaO2% (BldA) [Mass fraction] 98 % Fredi KARASIK [facility] 11-27-2022 21:50-0500 Systolic blood pressure 159 mm[Hg] Fredi KARASIK [facility] 11-27-2022 21:37-0500 Blood Pressure Location Fredi SCHUMACHERASIK [facility] 11-27-2022 21:37-0500 Diastolic blood pressure 88 mm[Hg] Fredi KARASIK [facility] 11-27-2022 21:37-0500 Heart rate 131 /min Fredi KARASIK [facility] 11-27-2022 21:37-0500 Mean blood pressure 111 mm[Hg] Fredi KARASIK [facility] 11-27-2022 21:37-0500 SaO2% (BldA) [Mass fraction] 97 % Fredi SCHUMACHERASIK [facility] 11-27-2022 21:37-0500 Systolic blood pressure 158 mm[Hg] Fredi KARASIK [facility] 11-27-2022 21:30-0500 Blood Pressure Location Fredi SCHUMACHERASIK [facility] 11-27-2022 21:30-0500 Body temperature 98.6 [degF] Fredi KARASIK [facility] 11-27-2022 19:00-0500 Body temperature 98.24 [degF] Fredi KARASIK [facility] 11-27-2022 17:15-0500 Body temperature 98.06 [degF] Fredi KARASIK [facility] 11-27-2022 14:02-0500 Heart rate 99 /min Fredi KARASIK [facility] 07-14-2022 07:00-0400 Body temperature 98.6 [degF] Kumar Villagomez [facility] 07-14-2022 07:00-0400 Diastolic blood pressure 67 mm[Hg] Kaylinn Dokken [facility] 07-14-2022 07:00-0400 Heart rate 80 /min Kaylinn Dokken [facility] 07-14-2022 07:00-0400 Mean blood pressure 83 mm[Hg] Kaylinn Dokken [facility] 07-14-2022 07:00-0400 Respiratory rate 17 /min Kaylinn Dokken [facility] 07-14-2022 07:00-0400 Systolic blood pressure 115 mm[Hg] Kaylinn Dokken [facility] 07-14-2022 06:07-0400 Body temperature 98.24 [degF] Kaylinn Dokken [facility] 07-14-2022 06:07-0400 Diastolic blood pressure 79 mm[Hg] Kaylinn Dokken [facility] 07-14-2022 06:07-0400 Heart rate 90 /min Kaylinn Dokken [facility] 07-14-2022 06:07-0400 Respiratory rate 18 /min Kaylinn Dokken [facility] 07-14-2022 06:07-0400 SaO2% (BldA) [Mass fraction] 100 % Kaylinn Dokken [facility] 07-14-2022 06:07-0400 Systolic blood pressure 134 mm[Hg] Kaylinn Dokken [facility] 07-14-2022 05:30-0400 Hourly Rounding Nathan KIESHA [facility] Comment on above: Result Comment: Pt discharged per physic santiago orders. Pt ambulates off unit with a steady gait 07-14-2022 05:15-0400 Diastolic blood pressure 77 mm[Hg] Nathan KIESHA [facility] 07-14-2022 05:15-0400 Heart rate 105 /min Nathan KIESHA [facility] 07-14-2022 05:15-0400 Hourly Rounding Nathan KIESHA [facility] 07-14-2022 05:15-0400 Mean blood pressure 89 mm[Hg] Nathan KIESHA [facility] 07-14-2022 05:15-0400 Respiratory rate 18 /min Nathan KIESHA [facility] 07-14-2022 05:15-0400 Systolic blood pressure 113 mm[Hg] Nathan KIESHA [facility] 04-18-2022 11:00-0400 Body height 160.02 cm Domo Hodges Other [facility] [employer] Other 04-18-2022 11:00-0400 Body mass index (BMI) [Ratio] 23.03 kg/m2 Domo Hodges Other [employer] Other 04-18-2022 11:00-0400 Body weight 58.97 kg Domo Hodges Other [employer] Other 02-09-2022 11:41-0400 Body height 157.48 cm Charlene Billow DO Work Phone: OG-PTRWA-Jcuffh 320 Work Phone: 02-09-2022 11:41-0400 Body mass index (BMI) [Ratio] 24.51 kg/m2 Charlene Billow DO Work Phone: XB-BSILG-Vcxyfs 320 Work Phone: 02-09-2022 11:41-0400 Body surface area Derived from formula 1.61 m2 Charlene Billow DO Work Phone: KN-OWRGI-Bwpkdt 320 Work Phone: 02-09-2022 11:41-0400 Body weight 60.78 kg Charlene Billow DO Work Phone: VW-BRFCE-Mznxyg 320 Work Phone: 02-09-2022 11:41-0400 Diastolic blood pressure 87 mm[Hg] Charlene Billow DO Work Phone: ZS-LDOFE-Knkxzo 320 Work Phone: 02-09-2022 11:41-0400 Systolic blood pressure 136 mm[Hg] Charlene Billow DO Work Phone: WC-QDSFM-Xuglgz 320 Work Phone: 02-09-2022 11:41-0400 0 1 Charlene Wilderow DO Work Phone: RJ-CUTKD-Onzcdm 320 Work Phone: Comment on above: GRAV PARA [employer] 04-19-2021 14:53-0400 Body height 157.48 cm Charlene Billow DO Work Phone: RH-EZDAA-Xqpdsi 320 Work Phone: 04-19-2021 14:53-0400 Body mass index (BMI) [Ratio] 21.77 kg/m2 Charlene Billow DO Work Phone: UH-VPHBV-Jpibrx 320 Work Phone: 04-19-2021 14:53-0400 Body surface area Derived from formula 1.53 m2 Charlene Billow DO Work Phone: DB-DQRJU-Dzyvsq 320 Work Phone: 04-19-2021 14:53-0400 Body weight 53.98 kg Charlene Billow DO Work Phone: FN-DDGKP-Hesqud 320 Work Phone: 04-19-2021 14:53-0400 Diastolic blood pressure 83 mm[Hg] Charlene Billow DO Work Phone: AB-KQMYQ-Kxgazd 320 Work Phone: 04-19-2021 14:53-0400 Heart rate 108 /min Charlene Billow DO Work Phone: IA-HDKDI-Qnymas 320 Work Phone: 04-19-2021 14:53-0400 Systolic blood pressure 142 mm[Hg] Charlene Billow DO Work Phone: HW-NIORV-Mgjzww 320 Work Phone: 04-19-2021 14:53-0400 0 1 Charlene Billow DO Work Phone: VG-AUXNC-Dahlev 320 Work Phone: Comment on above: GRAV PARA [employer] Encounters Encounter Date Encounter Type Care Provider Facility Start: 02-19-2024 End: 02-19-2024 ambulatory NAY CHOUDHARY Not Available Start: 01-30-2024 End: 01-30-2024 ambulatory NATHAN KIESHA Not Available Start: 01-10-2024 End: 01-10-2024 ambulatory NATHAN KIESHA Not Available Start: 01-10-2024 End: 01-10-2024 Office outpatient visit 15 minutes Nathan Kiesha DO Work Phone: [facility] Comment on above: Menorrhagia with reg ular cycle; Pelvic pain in female; Uses control Start: 01-02-2024 Refill Charlene Billow D O Work Phone: [facility] Comment on above: Refill Request Start: 12-31-2023 ambulatory Charlene Billow D O Work Phone: Obstetrics/Gynecology Comment on above: pain Start: 12-10-2023 End: 12-10-2023 ambulatory CRUZ BROUSSARDTER Facility:[facility] Start: 10-23-2023 End: 10-23-2023 ambulatory CRUZ RODRÍGUEZ Not Available Start: 10-22-2023 ambulatory Charlene Billow D O Work Phone: [facility] Start: 10-22-2023 Patient encounter procedure Charlene Billow DO Work Phone: Obstetrics/Gynecology Comment on above: office visit Start: 09-12-2023 End: 09-12-2023 Emergency department patient visit Von Loco Facility:[facility] Start: 09-12-2023 End: 09-12-2023 Emergency department patient visit Von Loco [facility] Start: 08-30-2023 Manual pelvic examination Charlene Billow DO Work Phone: Obstetrics/Gynecology Comment on above: Pelvic pain in femal e (Primary Dx) Start: 08-26-2023 ambulatory Charlene Billow D O Work Phone: Obstetrics/Gynecology Comment on above: painful periods Start: 08-24-2023 End: 08-24-2023 ambulatory CRUZ RODRÍGUEZ Facility:[facility] Start: 08-24-2023 End: 08-24-2023 Manual pelvic examination Srinivasa Downs APRN.SENIOR DIRECTOR INSIGHT Work Phone: Gynecology Comment on above: High-tone pelvic stella or dysfunction (Primary Dx); Chronic pelvic pain in female Start: 08-24-2023 End: 08-24-2023 Telemedicine consultation with patient Srinivasa Reaper MUSTANGER.SENIOR DIRECTOR INSIGHT Work Phone: [facility] Start: 08-13-2023 ambulatory Charlene Billow D O Work Phone: Obstetrics/Gynecology Comment on above: painful period Start: 08-02-2023 Telephone encounter Charlene Bill ow DO Work Phone: Gynecology Comment on above: Insurance Authorizat ion (Orilissa) Start: 07-16-2023 End: 07-16-2023 ambulatory [facility] Facility:[facility] Start: 06-12-2023 End: 06-12-2023 ambulatory [facility] Facility:[facility] Start: 06-12-2023 End: 06-12-2023 Subsequent hospital visit by physician [facility] Suki (I-Stat/1.5t) Radiology Comment on above: Pelvic and perineal pain [R10.2] Start: 05-17-2023 End: 05-17-2023 ambulatory [facility] Facility:[facility] Start: 05-17-2023 End: 05-17-2023 Manual pelvic examination Charlene Rodriguez DO Work Phone: Obstetrics/Gynecology Comment on above: Endometriosis (Prima ry Dx); Pelvic and perineal pain Start: 05-17-2023 End: 05-17-2023 Telemedicine consultation with patient Charlene Rodriguez DO Work Phone: [facility] Start: 05-11-2023 Telephone encounter Charlene jimenez DO Work Phone: Gynecology Comment on above: Vaginal Bleeding Start: 05-09-2023 End: 07-20-2023 ambulatory SRINIVASA DOWNS Facility:[facility] Start: 05-01-2023 End: 05-01-2023 ambulatory [facility] Facility:[facility] Start: 05-01-2023 End: 05-01-2023 Patient encounter procedure Srinivasa Downs MUSTANGER.SENIOR DIRECTOR INSIGHT Work Phone: Gynecology Comment on above: Chronic pelvic pain in female (Primary Dx); Constipation, unspecified constipation type; High-tone pelvic floor dysfunction; Diastasis of rectus abdominis; Dysmenorrhea; Other specified dyspareunia Start: 04-22-2023 ambulatory Charlene Keating O Work Phone: Obstetrics/Gynecology Comment on above: painful Start: 04-11-2023 End: 04-11-2023 ambulatory [facility] Facility:[facility] Start: 03-23-2023 End: 03-23-2023 ambulatory Cruz Rodríguez Facility:[facility] Start: 01-31-2023 End: 01-31-2023 Emergency department patient visit Edin Bermudez Facility:[facility] Start: 01-31-2023 End: 01-31-2023 Emergency department patient visit [facility] Phuc Bermudez [facility] Start: 12-30-2022 End: 12-30-2022 ambulatory [facility] Phuc Bermudez Facility:[facility] Start: 12-30-2022 End: 12-30-2022 Patient encounter procedure [facility] Phuc Bermudez [facility] Start: 12-05-2022 End: 12-05-[address] [facility] Start: 11-28-2022 End: 12-02-2022 Evaluation and management of inpatient [facility] Start: 11-28-2022 End: 12-27-2022 Pre-admission assessment Fredi DORSEY [facility] Start: 11-27-2022 End: 11-28-2022 ambulatory Fredi DORSEY Facility:[facility] Start: 11-27-2022 End: 11-27-2022 OB Triage Fredi DORSEY [facility] Start: 09-20-2022 End: 09-21-2022 ambulatory MD Cruz Meza Facility:[facility] Start: 08-23-2022 End: 08-23-2022 ambulatory Cruz Rodríguez Facility:[facility] Start: 07-14-2022 End: 07-14-2022 Emergency department patient visit Kumar Villagomez [facility] Start: 07-14-2022 End: 07-14-2022 OB Triage Nathan POP [facility] Start: 05-16-2022 End: 05-16-2022 ambulatory Cruz Rodríguez Facility:[facility] Start: 04-25-2022 End: 04-25-2022 Patient encounter procedure DOMO HODGES [facility] Start: 04-18-2022 End: 04-18-2022 ambulatory Domo Hodges Other [facility] [employer] Other Start: 04-18-2022 Patient encounter procedure Domo Genodemianpearl [facility] Gastroenterology Start: 02-09-2022 Office outpatient vi sit 15 minutes Charlene Rodriguez DO Work Phone: LC-NPTTV-Fsornn 320 Work Phone: Start: 09-29-2021 End: 10-02-2021 ambulatory [facility] Start: 09-29-2021 End: 10-02-2021 ambulatory OPAL LARA [facility] Start: 04-19-2021 AUDIT Charlene Valladares Work Phone: YX-GMWBW-Absupz 320 Work Phone: Start: 04-19-2021 PLVCPOBGYN, Provider : Charlene Rodriguez, Status: Pen, Time: 2:45 PM Nicholas Chau MD Work Phone: MW-Cfjmeob-Nqbdverjq Work Phone: Start: 04-18-2021 Chart Update Nicholas Keating Work Phone: ON-Ltqpywu-Gitvjnywx Work Phone: Procedures Date Procedure Procedure Detail [...] first preg Result Comment: PERF ORMED BY: [place] [address] PATHOLOGIST CAPACITOR TESTER JESUS JIN M.D. Performed By: #### R VA W RFX, VZIGG, RUBELLA IGG, HIV SCREEN, HBSAG #### [facility] , #### CUU, CBC, HCGQNT #### [address] Start: 02-28-2021 Cystoscopy DOMO BROWNE Start: 08-30-2020 End: 08-30-2020 Antibody screen Comment on above: Performed By: #### T +S #### [facility] [address] [place] [address] Order Comment: TEST TYPE + SCREEN WAS CANCELLED, 08/30/2020 13:37 JOP. Performed By: #### T +S #### [facility] [address] [place] [address] Start: 08-07-2018 RIGHT SHOULDER OPEN DISTAL CLAVICLE EXCISION 1 DOMO HODGES Comment on above: RIGHT SHOULDER OPEN DISTAL CLAVICLE EXCISION RIGHT SHOULDER OPEN DISTAL CLAVICLE EXCISION Appendectomy DOMO HODGES Betamethasone (substance) Gr dorinarosa WILLIAN Comment on above: Dose #1: 11/27/22 Colonoscopy DOMO HODGES Endoscope, device (p hysical object) [facility] Nicholas Chau MD Work Phone: Plan of Treatment Date Care Activity Detail Author Start: 08-18-2024 End: 08-18-2024 Patient encounter procedure 08/18/2024 11:00 AM EDT Office Visit [facility] [address] [place] [id number] Nathan Pop, DO [address] [place], [place] [id number] [facility] Start: 05-25-2024 Influenza vaccination Influenza Vacc ine (#1) [facility] Comment on above: Postponed from 07/27 (Patient Refused) Start: 04-22-2024 End: 04-22-2024 Patient encounter procedure 04/22/2024 9:00 AM EDT [facility] [address] [place] [id number] Cruz Rodríguez MD [address] [place] [address] [facility] Start: 2024 Urine microalbumin profile DTaP,Tdap,Td Vaccine (7 - Td or Tdap) [facility] Start: 01-30-2024 End: 01-30-2024 Patient encounter procedure 01/30/2024 11:10 AM EST Consult [facility] [address] [place] [phone] Nathan Pop, DO [address] [place] [address] [facility] Start: 01-15-2024 End: 01-15-2024 Professional / ancillary services management 01/15/2024 8:00 AM EST Ancillary Procedure [facility] [address] [place] [phone] [facility] Start: 01-10-2024 End: 01-10-2025 US for US PELVIS-TRANSVAG IF INDICATED Imaging Routine Pelvic pain in female Expected: 01/10/2024 (Approximate), Expires: 01/10/2025 [facility] Work Phone: Comment on above: Expected: 01/10/2024 (Approximate), Expires: 01/10/2025 Start: 11-26-2023 Depression Assessment Depression Ass [facility] Start: 07-27-2023 Influenza vaccination [facility] Start: 11-26-2022 DEPRESSION ASSESSMENT DEPRESSION ASS [facility] Start: 05-23-2022 FUV, Provider: Charlene Rodriguez, Status: Pen, Time: 1:30 PM FUV, Provider: Charlene Rodriguez, Status: Pen, Time: 1:30 PM AD-AHPUH-Cpiqwd 320 Work Phone: Start: 08-16-2021 FUV, Provider: Charlene Rodriguez, Status: Pen, Time: 11:15 AM FUV, Provider: Charlene Rodriguez, Status: Pen, Time: 11:15 AM SH-JHATS-Ilvkye 320 Work Phone: Start: 2016 PAP TESTING PAP TESTING [facility] Start: 2016 Screening for malign ant neoplasm of cervix Pap Testing [facility] Start: 2014 Urine microalbumin profile [facility] Start: 2013 ANNUAL PCP TEAM HOT METAL CHARGER JOSE DISEASE VISIT ANNUAL PCP TEAM CHRONIC DISEASE VISIT [facility] Start: 2013 BP CONTROLLED (<130/80) BP CON TROLLED (<130/80) [facility] Start: 2013 HEPATITIS C SCREENING HEPATITIS C [facility] Start: 2013 Hepatitis C screening Hepatitis C [facility] Start: 2013 HIV SCREENING HIV SCREENING [facility] Start: 2013 HIV screening HIV Screening [facility] Start: 1995 COVID-19 VACCINE (#1) COVID-19 VACCI NE (#1) [facility] Start: 1995 HEPATITIS B (1 of 3 - 3-dose series) HEPATITIS B (1 of 3 - 3-dose series) [facility] Start: 1995 Hepatitis B Vaccine (1 of 3 - 3-dose series) Hepatitis B Vaccine (1 of 3 - 3-dose series) [facility] End: 06-15-2024 Mri pelvis w/o & w/contrast material MRI FEMALE PELVIS WO/W IVCON Radiology Routine Pelvic and perineal pain 1 Occurrences starting 05/17/2023 until 06/15/2024 [facility] Work Phone: Comment on above: 1 Occurrences starti ng 05/17/2023 until 06/15/2024 [facility] Immunizations Immunization Date Immunization Notes Care Provider [facility] 09-11-2014 hepatitis A vaccine, adult dosage Nathan Kiesha DO Work Phone: [facility] 09-11-2014 human papilloma viru s vaccine, quadrivalent Nathan Kiesha DO Work Phone: [facility] 09-11-2014 influenza, seasonal, injectable, preservative free Nathan Kiesha DO Work Phone: [facility] 09-11-2014 influenza virus vacc ine, unspecified formulation Charlene Wilderfanny DO Work Phone: [facility] 05-04-2014 human papilloma viru s vaccine, quadrivalent Nathan Kiesha DO Work Phone: [facility] 2014 hepatitis A vaccine, adult dosage Nathan Kiesha DO Work Phone: [facility] 2014 human papilloma viru s vaccine, quadrivalent Nathan Kiesha DO Work Phone: [facility] 2014 tetanus toxoid, redu quinton diphtheria toxoid, and acellular pertussis vaccine, adsorbed Nathan Kiesha DO Work Phone: [facility] 04-03-2007 meningococcal polysaccharide (groups A, C, Y and W-135) diphtheria toxoid conjugate vaccine (MCV4P) Nathan Kiesha DO Work Phone: [facility] 05-03-2000 diphtheria, tetanus toxoids and acellular pertussis vaccine, unspecified formulation Nathan Kiesha DO Work Phone: [facility] 05-03-2000 measles, mumps and rubella virus vaccine Nathan Kiesha DO Work Phone: [facility] 05-03-2000 poliovirus vaccine, inactivated Nathan Kiesha DO Work Phone: [facility] 12-29-1997 diphtheria, tetanus toxoids and acellular pertussis vaccine, unspecified formulation Nathan Kiesha DO Work Phone: [facility] 08-01-1996 DTP-Haemophilus influenzae type b conjugate vaccine Nathan Kiesha DO Work Phone: [facility] 08-01-1996 hepatitis B vaccine, pediatric or pediatric/adolescent dosage Nathan Kiesha DO Work Phone: [facility] 08-01-1996 measles, mumps and rubella virus vaccine Nathan Kiesha DO Work Phone: [facility] 08-01-1996 trivalent poliovirus vaccine, live, oral Nathan Kiesha DO Work Phone: [facility] 1995 DTP-Haemophilus influenzae type b conjugate vaccine Nathan Kiesha DO Work Phone: [facility] 1995 hepatitis B vaccine, pediatric or pediatric/adolescent dosage Nathan Kiesha DO Work Phone: [facility] 1995 trivalent poliovirus vaccine, live, oral Nathan Kiesha DO Work Phone: [facility] 1995 DTP-Haemophilus influenzae type b conjugate vaccine Nathan Kiesha DO Work Phone: [facility] 1995 hepatitis B vaccine, pediatric or pediatric/adolescent dosage Nathan Kiesha DO Work Phone: [facility] 1995 trivalent poliovirus vaccine, live, oral Nathan Kiesha DO Work Phone: [facility] Payers Date Payer Category Payer Unknown 2022 Unknown [id number] 2022 Medicaid [id number] 2022 Private Health Insurance [id number] 2022 Self-pay 2020 Unknown [id number] 2018 Private Health Insurance [id number] 1995 Unknown [id number] 2.16.8 [id number] 1995 Unknown [id number] 2.16.8 [id number] 1995 Unknown [id number] 2.16.8 [id number] 1995 Unknown [id number] 2.16.8 [id number] 1995 Unknown [id number] 2.16.8 [id number] 1995 Unknown [id number] 2.16.8 [id number] 1995 Unknown [id number] 2.16.8 [id number] 1995 Unknown [id number] 2.16.8 [id number] 1995 Unknown [id number] 2.16.84 [id number] 1995 Unknown [id number] 2.16.84 [id number] 1995 Unknown [id number] 2.16.84 [id number] 1995 Unknown [id number] 2.16.840 .[id number] Unknown [id number] 2.16.8 [id number] Unknown [id number] 2.16.8 [id number] Unknown [id number] 2.16.8 [id number] Social History Date Type Detail Facility Start: 07-16-2023 End: 09-19-2023 Always uses seat belt Always uses seat belt [facility] Start: 03-10-2021 End: 05-01-2023 Tobacco smoking status Never smoked tobacco (finding) [facility] Tobacco smoking status Never [facility] Start: 07-16-2023 End: 09-19-2023 Sex Assigned At Female [facility] Creative Citizen Other Tobacco [facility] Comment on above: denies. Tobacco smoking status No Smokin g Status Entered [facility] Start: 04-11-2023 End: 05-01-2023 Tobacco use and exposure Smokeless tobacco non-user [facility] Start: 04-11-2023 End: 12-10-2023 Alcohol intake Current drinker of alcohol (finding) [facility] Start: 10-08-2020 Alcohol Comment maybe a few dr martinez a month [facility] Start: 1995 Sex Assigned At Not on file [facility] Start: 01-10-2024 Alcohol intake Lifetime [...] Assessment Result Facility 09-12-2023 Functional Status N/A [facility] 01-31-2023 Functional Status N/A [facility] 12-30-2022 Functional Status N/A [facility] 11-27-2022 Functional Status N/A [facility] 07-14-2022 N/A [facility] Clinical Notes 04-18-2022 to 01-10-2024 Nathan Pop [...] History: Procedure Laterality Date APPENDECTOMY 05/2016 at [facility] DILATION AND CURETTAGE 12/2022 retained placenta DISTAL [...] nursing note reviewed. Exam conducted with a manager mobility present. Vitals: Estimated body mass index is 28.17 kg/m as calculated from the following: Height as of 11/28/23: 5' 2 . Weight as of this [...] Nathan Pop DO documented in this encounter [facility] 01-03-2024 Miscellaneous Notes Refill(s) request: Requested [...] mg tablet Class: Normal Route: ORAL Order: [id number] E-Prescribing Status: Receipt confirmed by pharmacy (05/17/2023 [...] that may recur and often requires a middle or intermediate school principal treatment plan. Once endometriosis is identified, there [...] Department Center 05/20/2024 10:00 AM Kevin Crenshaw Customer Acquisition Manager [facility] 06/23/2024 10:30 AM Charlene Rodriguez DO [facility] Appointment scheduled: As listed above Action taken: Refill request routed to clinician Pippa Simon RN January 03, 2024 4:29 PM Patient: Driss Cope : 1995 Provider: Charlene Rodriguez DO Caller Phone #: [phone] (home) [phone] (cell) Reason for call: b/c refill Message routed to nurse triage Date of next visit: MEGAN: 12/10/2023 documented in this encounter [facility] 12-10-2023 Note HNO ID: [id number] Author: CHARLENE RODRIGUEZ DO Service: ? Author Type: Physician Type: Progress Notes Filed: 12/10/2023 15:14 Note Text: [facility] SECTION FOR MINIMALLY INVASIVE GYNECOLOGIC SURGERY OUTPATIENT VISIT DATE 12/10/2023 OUTPATIENT VISIT TYPE Follow-up visit PRIMARY CARE PHYSICIAN: Cruz Rodríguez [address] [place] [address] REFERRING PHYSICIAN: Self CHIEF COMPLAINT: No chief [...] MRI: no evidence of Past Gynecologic History: Customer Acquisition Manager History LMP: 07/08/2023 (Exact Date), Having periods Age at Menarche: 14 Age at First : 27 Age at Menopause: Customer Acquisition Manager History Comments: Sexual Activity: Never; No partner [...] today with pelvic (more content not included)... [facility] 09-12-2023 Hospital Discharg e instructions Patient Education [...] Follow these instructions at home: Medicines Take pjiz-asz-zyjxitg and prescription medicines only as told by [...] buy a blood pressure monitor at most [employer] or online. Where to find more information [employer]: www.heart.org Contact a health care [...] provider. Document Revised: 07/27/2022 Document Reviewed: 07/27/2022 [employer] Patient Education 2022 [employer]. 09/12/2023 18:18:13 Hypertension, Adult, Fdel-zv-Xwli Hypertension, Adult Hypertension is another name for [...] doctor. Keep all follow-up visits. Medicines Take ntbi-vwl-czhunkk and prescription medicines only as told by [...] provider. Document Revised: 08/31/2022 Document Reviewed: 08/31/2022 [employer] Patient Education 2022 [employer] 09/12/2023 18:18:13 General Headache Without Cause, Osnd-st-Cqxa General Headache Without Cause A headache is pain or discomfort you feel around the head or neck area. There are many causes and types of headaches. In some cases, the cause may not be found. Follow these instructions at home: Watch your condition for any changes. Let your doctor know about them. Take these steps to help with your condition: Managing pain Take prbv-rsk-izqkprb and prescription medicines only as told by [...] provider. Document Revised: 04/12/2022 Document Reviewed: 04/12/2022 [employer] Patient Education 2022 Meal Ticket. Follow Up Care 09/12/2023 17:21:57 With:CRUZ RODRÍGUEZ Address: [address] [place] [address]- Business (1) When:09/15/2023 18:03:37 Comments:Follow-up with your primary care provider in 3 to 5 days. If symptoms worsen, do not improve, or new symptoms arise please report back to emergency department for further evaluation. [facility] 09-12-2023 Evaluation + Plan note Extrac tank [...] date 09/12/23 18:02:00 EDT, 09/12/23 18:02:00 EDT [facility]10-16-2023 Instructions* Patient Instructions* Srinivasa Downs APRN.CNP - 09/10/2023 9:52 AM EDT Plan: Trial baclofen suppositories - can switch to pill vaginally if suppositories are not affordable Consider Pelvic floor physical therapy - can find local provider [email or web address] Consider going back to see Dr Kuldip Downs APRN.SENIOR DIRECTOR INSIGHT documented in this encounterUniversity Hospitals Geneva Medical Center10-05-2023 NoteHNO ID: [id number] Author: Charlene Rodriguez DO Service: ? Author Type: Physician Type: Progress Notes Filed: 08/30/2023 11:15 AM Note Text: Tramadol rx sent to pharmacy.[facility]10-05-2023 History of Present illness Narrative* Charlene Rodriguez DO - 08/30/2023 11:13 AM EDT Tramadol rx sent to pharmacy. documented in this encounterUniversity Hospitals Geneva Medical Center10-05-2023 Miscellaneous Notes* Telephone Encounter - Chelsie Dueñas RN - 08/30/2023 10:50 AM EDT Last office visit: 08/24/2023 Assessment and Plan No diagnosis found. Trial baclofen suppositories Will send list of PTs Consider going back to Kuldip SIGNATURE: Srinivasa Downs APRN.SENIOR DIRECTOR INSIGHT Office visit with Dr. Rodriguez 07/16/2023 IMPRESSION: [...] plan. Charlene Rodriguez DO documented in this encounterUniversity Hospitals Geneva Medical Center09-29-2023 NoteHNO ID: [id number] Author: Srinivasa Downs APRN.ANA LAURA Service: ? Author Type: Nurse Practitioner Type: Progress Notes Filed: 09/10/2023 9:53 AM Note Text: [facility] Department of Benign Gynecology [facility] PATIENT NAME: Driss Cope DATE: 08/24/2023 Patient Name and verified: Yes Patient Location: [place] This Virtual Visit was completed using My Chart Zoom platform. I have communicated my name and active licensure. The patient's identity and physical location were verified at the time of this visit. Either the patient or their legal community health program representative has been informed of the risks [...] appointment yet. GI - constipation is improved [place] - hasn't tried due to pain and [...] physical therapy - or can go locally [facility] Trial flexeril at bedtime Can consider Baclofen suppositories Continue Norethindrone - can take up to 3 months for it to stop periods, take at same time every day Relaxation techniques Srinivasa Downs APRN.SENIOR DIRECTOR INSIGHT OB History T0 L1 SAB0 IAB0 Ectopic0 Multiple0 Live Births0 Customer Acquisition Manager History LMP: 07/08/2023 (Exact Date), Having periods Age at Menarche: 14 Age at First : 27 Age at Menopause: Customer Acquisition Manager History Comments: Sexual Activity: Never; No partner [...] toxic appearing HEENT nor (more content not included)...[facility]09-29-2023 History of Present illness Narrative* Srinivasa Downs APRN.SENIOR DIRECTOR INSIGHT - 08/24/2023 9:24 AM EDT Images from the original note were not included. [facility] Department of Benign Gynecology [facility] PATIENT NAME: Driss Cope DATE: 08/24/2023 Patient Name and verified: Yes Patient Location: [place] This Virtual Visit was completed using My Chart Zoom platform. I have communicated my name and active licensure. The patient's identity and physical location wereverified at the time of this visit. Either the patient or their legal community health program representative has been informed of the risks [...] appointment yet. GI - constipation is improved [place] - hasn't tried due to pain and [...] and agrees with treatment plan. Charlene Rodriguez, 05/01/23 Pelvic floor physical therapy - or can go locally [facility] Trial flexeril at bedtime Can consider Baclofen suppositories Continue Norethindrone - can take up to 3 months for it to stop periods, take at same time every day Relaxation techniques Srinivasa Downs APRN.SENIOR DIRECTOR INSIGHT OB History T0 L1 SAB0 IAB0 Ectopic0 Multiple0 Live Births0 Customer Acquisition Manager History LMP: 07/08/2023 (Exact Date), Having periods Age at Menarche: 14 Age at First : 27 Age at Menopause: Customer Acquisition Manager History Comments: Sexual Activity: Never; No partner [...] going back to see Dr Rodriguez SIGNATURE: Srinivasa Downs APRN.CNP Medical Decision Making: Problems: Low: Stable chronic illness Risk: Moderate: Drug management Medical Decision Making Level: 3 - Low documented in this encounterUniversity Hospitals Geneva Medical Center09-22-2023 Miscellaneous Notes* Telephone Encounter - Marilee Valdez APRN.CNP - 08/17/2023 3:17 PM EDT Recommend sooner appt with Kuldip if available vs appt with Srinivasa Downs CNP with CPP team in addition to keeping her scheduled follow up with DR. Rodriguez. Marilee Valdez APRN.CNP August 17, 2023 3:18 PM * [...] Provider: Charlene Rodriguez DO Caller Phone #: [phone] (home) [phone] (cell) Reason for call: pt calling regarding mc message., still in pain. Please call [phone] Message routed to nurse triage Date of next visit: documented in this encounterUniversity Hospitals Geneva Medical Center09-07-2023 Miscellaneous Notes* Telephone Encounter - Christa Suárez RN - 08/02/2023 11:29 AM EDT PA for orilissa completed via Cover MyMeds. Driss Cope (Morales: [id number]) - [id number] Orilissa 150MG tablets Status: Sent To Plan [...] too. Please advise. Thanks. documented in this encounterUniversity Hospitals Geneva Medical Center08-21-2023 NoteHNO ID: [id number] Author: Charlene Rodriguez, DO Service: ? Author Type: Physician Type: Progress Notes Filed: 07/16/2023 12:41 PM Note Text: [facility] SECTION FOR MINIMALLY INVASIVE GYNECOLOGIC SURGERY OUTPATIENT VISIT DATE 07/16/2023 OUTPATIENT VISIT TYPE Follow-up visit PRIMARY CARE PHYSICIAN: Cruz Rodríguez [address] [place] [address] REFERRING PHYSICIAN: Cruz Rodríguez CHIEF COMPLAINT: No [...] additional bowel lesions identified Past Gynecologic History: Customer Acquisition Manager History LMP: 07/08/2023 (Exact Date), Having periods Age at Menarche: 14 Age at First : 27 Age at Menopause: Customer Acquisition Manager History Comments: Sexual Activity: Never; No partner data on record Contraception: Pill Past Obstetrical History: OB History T0 L1 SAB0 IAB0 Ectopic0 Multiple0 Live Births0 Past Medical History: PAST MEDICAL HISTORY Diagnosis Date Endometriosis HTN (hypertension) PONV (postoperative nausea and vomiting) Past Surgical History: PAST SURGICAL HISTORY Procedure Laterality Date APPENDECTOMY 2015 COLONOSCOPY COLONOSCOPY 10/25/2020 repeat 5 years PAST [...] Signs: 07/16/23 1115 BP: (more content not included)...[facility]07-18-2023 NoteHNO ID: [id number] Author: Rosio Malcolm RT(R) Service: ? Author Type: Irrigation Technician Type: Progress Notes Filed: 06/12/2023 4:32 PM [...] Intact, Site disposition Discontinued SIGNED BY: RT Claudia(Bryant) June 12, 2023 4:32 [facility]07-18-2023 NoteHNO ID: [id number] Author: Boo Singh RN Service: Nursing Author [...] Cope DATE: June 12, 2023 TIME: 1:43 [facility]07-18-2023 History of Present illness Narrative* Boo Singh [...] 12, 2023 TIME: 1:43 PM * Rosio Malcolm RT(R) - 06/12/2023 1:30 PM EDT Radiology [...] Intact, Site disposition Discontinued SIGNED BY: RT Claudia(Bryant) June 12, 2023 4:32 PM documented in this encounterUniversity Hospitals Geneva Medical Center06-22-2023 NoteHNO ID: [id number] Author: Charlene Rodriguez, DO Service: ? Author Type: Physician Type: Progress Notes Filed: 05/21/2023 10:15 AM Note Text: [facility] SECTION FOR MINIMALLY INVASIVE GYNECOLOGIC SURGERY OUTPATIENT [...] to appointment last week Past Gynecologic History: Customer Acquisition Manager History LMP: 04/22/2023 (Exact Date), Having periods Age at Menarche: 14 Age at First : 27 Age at Menopause: Customer Acquisition Manager History Comments: Sexual Activity: Never; No partner [...] treatment plan. Charlene Rodriguez DO Tt: 20 minutesMercy Health [facility] Hospital06-22-2023 History of Present illness Narrative* Charlene oRdriguez DO - 05/17/2023 1:05 PM EDT Images from the original note were not included. [facility] SECTION FOR MINIMALLY INVASIVE GYNECOLOGIC SURGERY OUTPATIENT [...] to appointment last week Past Gynecologic History: Customer Acquisition Manager History LMP: 04/22/2023 (Exact Date), Having periods Age at Menarche: 14 Age at First : 27 Age at Menopause: Customer Acquisition Manager History Comments: Sexual Activity: Never; No partner data on record Contraception: Pill Past Obstetrical History: OB History T0 L1 SAB0 IAB0 Ectopic0 Multiple0 Live Births0 Past Medical History: PAST MEDICAL HISTORY Diagnosis Date Endometriosis HTN (hypertension) PONV (postoperative nausea and vomiting) Past Surgical History: PAST SURGICAL HISTORY Procedure Laterality Date APPENDECTOMY 2015 COLONOSCOPY COLONOSCOPY 10/25/2020 repeat 5 years PAST [...] DO Tt: 20 minutes documented in this encounterUniversity Hospitals Geneva Medical Center06-16-2023 Miscellaneous Notes* Telephone Encounter - Christa Suárez RN - 05/11/2023 4:19 PM EDT Reports vaginal bleeding, using panty liners, changing a few times a day, not severe. Biggest complaint is cramping. Has had 3 periods of bleeding recently - 04/22/2023 LMP, last a few days, 05/04-05/10 bleeding again 05/11/2023 started again today. Takes aygestin 5mg daily. She did not belt picker flexeril. Encourage to belt picker the flexeril as this will help with the cramping. Reviewed red flag bleeding symptoms that require trip to ER (soaking greater than one overnight padper hour, chest pain, shortness of breath, fatigue, palpitations).. Advised keep appt. Gives verbal understanding. Appointments for Next 60 Days Date Time Provider Location Dept Phone 05/17/2023 1:00 PM CHARLENE RODRIGUEZ [facility] [phone] Christa Suárez RN * Telephone Encounter - Tawana Barragan - 05/11/2023 1:19 PM EDT Reason for call: other - Vaginal bleeding Provider name: Dr Rodriguez Additional comments: patient having more vaginal bleeding and concerned she is getting worse. Recommendation: routed to nurse triage pool documented in this encounterUniversity Hospitals Geneva Medical Center06-06-2023 NoteHNO ID: [id number] Author: Srinivasa Downs APRN.ANA LAURA Service: ? [...] symptoms GI - Always constipated. No meds [place] - painful always Pain is on left [...] L0 SAB0 IAB0 Ectopic0 Multiple0 Live Births0 Customer Acquisition Manager History LMP: 03/26/2023 (Approximate), Having periods Age at Menarche: Age at First : Age at Menopause: Customer Acquisition Manager History Comments: Sexual Activity: Never; No partner [...] physical therapy - or can go locally [email or web address] Trial flexeril at bedtime Can consider Baclofen [...] management Medical Decision Making Level: 4 - ModerateMercy Health [facility]06-06-2023 Instructions* Patient Instructions* Srinivasa Downs APRN.CNP - 05/01/2023 11:47 AM EDT Plan Pelvic floor physical therapy - or can go locally [email or web address] Trial flexeril at bedtime Can consider Baclofen suppositories - let me know if you want to trial after you go to PT Continue Norethindrone - can take up to 3 months for it to stop periods, take at same time every day Relaxation techniques Srinivasa Downs APRN.AN ALAURA Relaxation techniques for pain flares: Heating pads [...] pelvic pain society ([email or web address].org) documented in this encounterUniversity Hospitals Geneva Medical Center06-06-2023 History of Present illness Narrative* Srinivasa Downs APRN.ANA LAURA - 05/01/2023 10:30 AM EDT Driss Cope is a 28 year old female who presents for problem visit for pain HPI: Pain is week before period and week of period. Worse on her period for every day she's bleeding Urinary - No symptoms GI - Always constipated. No meds [place] - painful always Pain is on left [...] L0 SAB0 IAB0 Ectopic0 Multiple0 Live Births0 Customer Acquisition Manager History LMP: 03/26/2023 (Approximate), Having periods Age at Menarche: Age at First : Age at Menopause: Customer Acquisition Manager History Comments: Sexual Activity: Never; No partner data on record Contraception: Pill PAST MEDICAL HISTORY Diagnosis Date HTN (hypertension) PONV (postoperative nausea and vomiting) PAST SURGICAL HISTORY Procedure Laterality Date APPENDECTOMY 2015 COLONOSCOPY COLONOSCOPY 10/25/2020 repeat 5 years PAST [...] physical therapy - or can go locally [facility] Trial flexeril at bedtime Can consider Baclofen [...] Level: 4 - Moderate documented in this encounterUniversity Hospitals Geneva Medical Center05-31-2023 Miscellaneous Notes* Telephone Encounter - Marilee Valdez [...] temporary or permanent skin changes. Marilee Valdez APRN.CNP April 25, 2023 3:49 PM * Telephone [...] months. Lucila Foss RN documented in this encounterUniversity Hospitals Geneva Medical Center05-31-2023 NoteHNO ID: [id number] Author: Alena Tracy Service: ? Author Type: ? Type: Progress Notes Filed: 04/25/2023 11:41 AM Note Text: Pt calling because still having terribly painful periods. Had to leave work. Please call [phone]05-17-2023 NoteHNO ID: [id number] Author: Charlene Rodriguez, DO Service: ? Author Type: Physician Type: Progress Notes Filed: 04/11/2023 8:18 PM Note Text: [facility] SECTION FOR MINIMALLY INVASIVE GYNECOLOGIC SURGERY OUTPATIENT VISIT DATE 04/11/2023 OUTPATIENT VISIT TYPE NEW PRIMARY CARE PHYSICIAN: Cruz Rodríguez [address] [place] [address] REFERRING PHYSICIAN: Self Patient is a former [facility] patient with confirmed endometriosis. CHIEF COMPLAINT: Menstrual Problem HISTORY OF PRESENT ILLNESS: Driss Cope is a pleasant 28 year old female who presents for evaluation of endometriosis. 2020 - diagnostic laparoscopy, confirmed endometriosis at [facility] No issues getting : nov 30, [...] Psurghx: laparoscopy x 2 Past Gynecologic History: Customer Acquisition Manager History LMP: 03/26/2023 (Approximate), Having periods Age at Menarche: Age at First : Age at Menopause: Customer Acquisition Manager History Comments: Sexual Activity: Never; No partner [...] and agrees with treatment plan. Charlene Rodriguez, [facility]03-08-2023 Hospital Discharge instructions Patient Education 01/31/2023 [...] told by your health care provider. Take elyp-aef-kohdqxq and prescription medicines only as told by [...] 01/03/2007 Document Revised: 10/25/2018 Document Reviewed: 01/25/2018 [employer] Patient Education 2020 Me[employer]icket. Follow Up Care 01/31/2023 13:43:01 With:Cruz Meza Address:Unknown When:02/03/2023 18:59:31 Comments:Follow-up for evaluation of hypertension in context of known preeclampsia in the period With:CRUZ RODRÍGUEZ Address: [address] [place] [address] Business (1) When:Within 3 Day(s) [facility]03-08-2023 Evaluation + Plan noteExtracted from: Title:ED Note Author:Mayur Mabry PA-C e:01/31/23 Flank pain (R10.9: Unspecifi ed abdominal pain) Headache (R51.9: Headache, unspecified) Orders: CTA Chest Hepatic Function Panel [facility]02-04-2023 Hospital Discharge instructions Patient Education 12/30/2022 13:59:51 ASSISTANT IN NURSING - Post D&C, Hysteroscopy, LEEP or Essure/Laparoscopy [...] Instructions - FT (Custom) (Custom) 12/30/2022 13:55:16 ASSISTANT IN NURSING - Post D&C, Hysteroscopy, LEEP or Essure/Laparoscopy [...] With:Cruz Meza Address: [address], [place] [address] [place] [address]- Business (1) When: Unknown Comments:follow up in 1-2 weeks With:CRUZ RODRÍGUEZ Address: [address] [place] [address]- Business (1) When:01/02/2023 09:21:18 [facility]02-04-2023 Evaluation + Plan noteExtracted from: Title:ANES Post-operative [...] procedure reviewed, Extracted from: Title:ANES Pre-operative Note Author:Vamsi BLACKWELL R aric S. Date:12/30/22 Plan [place] [employer] Anesthesiologists (ASA) physical status classification: Class II, E. Anesthetic Preoperative Plan: Anesthesia General. Extracted from: Title:ED Note Author:Edin Bermudez M.D. te:12/30/22 1. Retained products of conc eption with hemorrhage (O72.2: Delayed and secondary hemorrhage) Orders: ABO/Rh ABO/Rh History Check Antibody Screen Automated Diff Basic Metabolic Panel Blood Bank ID# CBC w/ Auto Diff eGFR Extra SST Tube PT & PTT Saline Lock Insert UA With Cult Reflex US Pelvis Non-OB Complete [facility]01-07-2023 NoteDepartment of Obstetrics and Gynecology Delivery Discharge Summary Admission on 11/28/2022 12:24 AM Hospital course: Driss Cope at 35w1d admitted as a transfer from [facility] for PreEwSF. She was started on [...] Information for the patient's : Francie Cope [[id number]] female 2425 g (5 lb 5.5 oz) Apgars: Information for the patient's : Francie Cope [[id number]] : : Girl Blood Type/Rh: O Antibody [...] Your Medications These medications were sent to [facility] [address] [place], [place] [id number] Hours: Sunday to Sunday 10 am to 6 pm docusate sodium 100 MG capsule ibuprofen 600 MG tablet NIFEdipine XL 30 MG 24 hr tablet Activity: Activity as tolerated Diet: Regular diet Follow-up Appointments: - visit - Blood pressure check If a patient meets criteria for hypertension, make sure the following are done prior to discharge: [] Order a blood pressure kit through [facility] (or the patient's own pharmacy on the weekend) [] Order the blood pressure log through [facility] [x] Place an office visit or telephone encounter for a 3-to-5-day blood pressure check. [] Include blood pressure dot phrase (.sumobhypertension) in discharge instructions [] Check here if the patient does NOT meet criteria for hypertension Condition on discharge: Stable Discharge to: Home Discharge date: 12/02/22 Discharge Dx: S/p PreEwSF infant Preeclampsia, severe, third trimester [O14.13] Patient Active Problem List Diagnosis Preeclampsia, severe, third trimester Comments: Home care, Follow-up care and control were reviewed. Signs and symptoms of mastitis and Depression were reviewed. The patient is to notify her physician if any of these occur.[facility] [id number] NotePatient: Driss Cope Procedure Summary Date: 11/29/22 Room / Location: Anesthesia Start: 1814 Anesthesia Stop: 11/30/22247 Procedure: Labor Analgesia Diagnosis: Scheduled Providers: Responsible Provider: Cruz Fung MD Anesthesia Type: epidural ASA Status: 3 Anesthesia Type: epidural Vitals Value Taken Time BP 133/89 11/30/225 Temp 37.1 11/30/22 035 Pulse 103 11/30/22 0345 Resp 17 11/30/22 [...] discharged once all PACU criteria has been met.[facility]01-05-2023 NotePatient: Driss Cope Procedure Summary Date: 11/29/22 Room / Location: Anesthesia Start: 1814 Anesthesia Stop: 11/30/22247 Procedure: Labor Analgesia Diagnosis: Scheduled Providers: Responsible Provider: Cruz Fung MD Anesthesia Type: epidural ASA Status: 3 Anesthesia Type: epidural Vitals Value Taken Time BP 133/89 11/30/22 0342 Temp 37.1 11/30/22 0353 Pulse 103 11/30/22 0342 Resp 17 11/30/22 0353 SpO2 99 11/30/22352 Vitals shown include unvalidated device data. Anesthesia [...] Allowed opportunity for questions and acknowledgement of understanding.[facility]01-04-2023 NoteEpidural Block Time Out: 11/29/2022 6:17 PM Patient location during procedure: OB Start time: 11/29/2022 6:18 PM End time: 11/29/2022 6:45 PM Reason for block: labor analgesia Staffing Performed: TARIFF INSPECTOR Resident/TARIFF INSPECTOR: Jimmie Kaur APRN - JASMYN Preanesthetic Checklist Completed: patient identified, IV checked, [...] patient tolerated procedure well with no immediate complicationsHealthSource [facility]agin[facility]01-03-2023 NotePatient: Driss Cope Procedure Information Date: 11/28/22 [...] products. patient is not NPO Additional Equipment RequestsHealthSource [facility]01-03-2023 NoteLabor Progress Note Date: 11/28/2022 Time: 2:14 [...] time. FHT cat I and reassuring. CCM. Cx:/70/-3 FHT: Cat 1 [place]:q3-4 min A/P: 1. IOL-PreEwSF. FHT 130 baseline, with moderate variability, Accelerations present Yes, and rare late deceleration . Cervical exam unchanged. Cytotec x4 placed at this time. Patient intermittently feeling contractions. BP mild range. Cx: 1-2/70/-3 FHP: defer FHT: Cat I [place]: a3-4min A/P: 1. IOL-PreEwSF: FHT Category I, [...] Cx: unchanged FHP: defer FHT: Cat I [place]: q4min A/P: 1. IOL-PreEwSF: FHT Category I, [...] 11/29/2022 6:17 AM Cx:1-260/-3 FHT: Cat I [place]:q4-5mins A/P: 1. IOL-PreEwSF: Cat I FHT with [...] per protocol. CCM. Cx:defer FHT: Cat I [place]:q4-6mins A/P: 1. IOL-PreEwSF: Cat I FHT with baseline 120, moderate variability, spontaneous accelerations, and no decelerations. BP normotensive to mild range since last note time. Pitocin @ 2 cc/hr, continue to titrate per protocol. Magnesium sulfate running for seizure prophylaxis, UOP 400 ml over past 4 hours. CCM. Cx:defer FHT: Cat I [place]:q4-5mins A/P: 1. IOL-PreEwSF: Cat I FHT with baseline 135, moderate variability, spontaneous accelerations, and no decelerations. BP normotensive to mild range since last note time. Pitocin @ 6 cc/hr, continue to titrate per protocol. Magnesium sulfate running for seizure prophylaxis, UOP 600 ml over past 4 hours. Will plan for AROM soon. CCM. Cx:defer FHT: Cat I [place]:irritability A/P: 1. IOL-PreEwSF: Pit @ 8 mu/min. Patient resting comfortably and only irritability tracing on toco. BP most recently mild range. On magnesium sulfate for seizure prophylaxis. UOP adequate. Continue magnesium and continue to titrate pitocin per protocol. Plan for AROM once patient rudi more regularly. Electronically signed by Cortney Velasquez DO 11/29/2022 4:21 PM Cx:/-3 FHT: Cat 1 [place]:Not tracing A/P: 1. IOL-PreEwSF. FHT 135 baseline, with moderate variability, Accelerations present Yes, and no decelerations seen . AROM at this time for moderate amount blood tinged fluid. Pitocin at 8cc/hr. Maternal BP mild range. On Magnesium for Seizure prophylaxis. Patient with adequate urinary output. CCM. Cx: defer FHP: defer FHT: Cat II [place]: not tracing well A/P: 1. IOL-PreEwSF: FHT Category II for brief period of lates vs early deceleration (more content not included)...[facility]01-03-2023 NoteObstetrical History and Physical CHIEF COMPLAINT: SUH [...] 34w6d Is this patient being delivered between 29t3e-71l7h weeks with an acceptable medical indication (obstetric, maternal, and/or )? NA: Not Applicable: This patient is being delivered outside of the PC-01 range (55t4d-48v8z) for reasons indicated in the medical record. [...] VTE Prophylaxis: Not Indicated (more content not included)...[facility]01-03-2023 NoteThe following Patient Education Materials have been given to the patient: [facility] NotePatient: DRISS COPE Age: 27 years [...] case with the maternal- medicine department at [facility] in [facility], Dr. Thea Nieves, she accepted to transfer due to preeclampsia. Plan: Magnesium sulfate per protocol, betamethasone, transfer arrangements are in progress..[facility] CenterComment on above:Result Comment: Electronically Signed By: Fredi DORSEY MD\.br\Date and Time Signed: 11/27/22 21:08 [id number] Evaluation + Plan noteExtracted from: Title:OB High Risk Antepartum Visit * Author:Fredi HOANG MD Date:11/27/22 Impression and Plan Diagnosis 34 weeks 5 days. Preeclampsia. contractions. Maternal tachycardia.. Course: Worsening, New onset headache may be a signal of worsening symptoms of preeclampsia.. Orders I discussed this case with the maternal- medicine department at [facility] in [facility], Dr. Thea Nieves, she accepted to transfer due to preeclampsia. Plan: Magnesium sulfate per protocol, betamethasone, transfer arrangements are in progress.. [facility]08-19-2022 Evaluation + Plan noteExtracted from: Title:ED Note Author:Dahlia Charlotte DAYsveta Perkins Date :07/14/22 Abdominal pain in (O26.899: Other [...] Colace and Proctofoam and follow-up with her ASSISTANT IN NURSING physician in the outpatient setting. She is provided with a note for work. Additional diagnosis: Constipation, UTI and [facility]08-19-2022 Hospital Discharge instructions Follow Up Care 07/14/2022 06:07:36 With:Cruz Meza Address:Unknown When:07/17/2022 07:24:48 With:CRUZ RODRÍGUEZ Address: [address] [place] [address] Business (1) When:Within 3 Day(s) [facility]08-19-2022 Hospital Discharge instructions Follow Up Care 07/14/2022 04:40:16 With:Cruz Meza Address: [address] [place] [address]- Business (1) When:07/17/2022 Comments:Appointment has already been scheduledCall Dr if fever>100.5 F, heavy bleedingCall for any problems.Call for severe abdominal painCall physician for heavy vaginal bleedingCall physician if symptoms worsenPlease call if you need to rescheduleReturn for contractions closer, longer, harderReturn ifruptured membranes or vaginal bleeding [facility]05-31-2022 Evaluation + Plan note Diagnostic Tests Pending * [id number] 04/25/22 * NIGEL w/Reflex if POS 04/25/22 * Ceruloplasmin 04/25/22 * HCV Antibody RFX to Quant PCR 04/25/22 * HBV Core Ab 04/25/22 * Hepatitis B Surface Antibody 04/25/22 * Hepatitis B Surface Antigen 04/25/22 * Smooth Muscle Antibody Screen 04/25/22 [facility]05-24-2022 Evaluation note* Encounter Date Diagnosis Assessment Notes Treatment Notes Treatment Clinical Notes March, Elevated liver function tests (ICD-10 - R79.89) LABS INDICATED ABOVE [facility] Other Evaluation note* Diagnosis Pelvic pain in female- Primary Unspecified symptom associated with female genital organs documented in this encounter [facility]* Diagnosis Chronic pelvic pain in female- Primary Unspecified symptom associated with female genital organs Constipation, unspecified constipation type High-tone pelvic floor dysfunction Other specified disorders of female genital organs Diastasis of rectus abdominis Dysmenorrhea Other specified dyspareunia documented in this encounter [facility]* Diagnosis Endometriosis- Primary Endometriosis, site unspecified Pelvic and perineal pain Unspecified symptom associated with female genital organs documented in this encounter [facility]* Diagnosis Pelvic pain in female- Primary Unspecified symptom associated with female genital organs documented in this encounter [facility] note* Diagnosis Pelvic pain in female- Primary Unspecified symptom associated with female genital organs documented in this encounter [facility] note* Diagnosis High-tone pelvic floor dysfunction- Primary Other specified disorders of female genital organs Chronic pelvic pain in female Unspecified symptom associated with female genital organs documented in this encounter [facility] note* Diagnosis Pelvic and perineal pain Unspecified symptom associated with female genital organs documented in this encounter [facility] note* Diagnosis Menorrhagia with regular cycle Pelvic pain in female Unspecified symptom associated with female genital organs Uses control documented [facility] N[facility]ative - Reported* Type Description Date Medical History headache Surgical History appendectomy Surgical History shoulder surgery Surgical History endometriosis [facility] [employer] Other History of Present illness Narrative* 26 [...] engaged x 1 year * working at [employer] in [place] [address] Work Phone: Hospital course Narrative No data available for this section [facility] No data available for this section [facility] CenterProgress note No data available for this section [facility] CenterReason for visit NarrativePT HERE AT REQUEST OF DR RODRÍGUEZ FOR EVALUATION AND TREATMENT OF ELVATED LIVER FUNCTION- ( DR. SAMUEL PT), LABS FROM DR RODRÍGUEZ REVIEWED BY DR [facility] [employer] Other Summary Purpose Family History No Family [...] Bilateral ureterolysis Surgeon: Dr. Charlene Rodriguez Resident/Fellow/Other Side Seam Envelope Machine Operator: Glory Palacio Anesthesia: general I.V. Fluids: 500 [...] to discuss pain related to endometriosis, declined manager mobility. [facility] Reason for Referral Specialty Diagnoses / Procedures Referred By Michaela house Referred To Contact MR IMAGING Diagnoses Pelvic and perineal pain Procedures MRI FEMALE PELVIS WO/W IVCON MRI PELVIS W/O & W/CONTRAST MATERIAL Charlene Rodriguez DO [address] [address] Mr Imaging Referral ID Status Reason Start Date Expiration Date Visits Requested Visits Authorized [id number] Authorized Auto-Generat ed Referral 05/17/2023 06/15/2024 1 1 Specialty Diagnoses / Procedures Referred By Michaela house Referred To Contact [facility] Diagnoses Constipation, unspecified constipation type High-tone pelvic floor dysfunction Diastasis of rectus abdominis Dysmenorrhea Other specified dyspareunia Chronic pelvic pain in female Procedures CONSULT TO PHYSICAL THERAPY PHYSICAL THERAPY EVALUATION HIGH COMPLEX 45 MINS Srinivasa Downs, MUSTANGER.SENIOR DIRECTOR INSIGHT [address] [place] [address] [facility] [address] [place] [address] Referral ID Status Reason Start Date Expiration Date Visits Requested Visits Authorized [id number] Pending Review Auto-Generat ed Referral 05/01/2023 04/30/2024 1 1 Additional Source Comments INFORMATION SOURCE (unrecogn ized section and content) DATE CREATED AUTHOR 10/26/2020 [facility] DATE CREATED AUTHOR AUTHOR'S ORGANIZ ATION 11/06/2020 [facility] DATE CREATED AUTHOR AUTHOR'S ORGANIZ ATION 12/17/2020 [facility] DATE CREATED AUTHOR AUTHOR'S ORGANIZ ATION 04/21/2021 [facility] DATE CREATED AUTHOR AUTHOR'S ORGANIZ ATION 06/05/2021 [facility] ical Center DATE CREATED AUTHOR AUTHOR'S ORGANIZ ATION 10/02/2021 [facility] DATE CREATED AUTHOR AUTHOR'S ORGANIZ ATION 02/10/2022 [facility] DATE CREATED AUTHOR AUTHOR'S ORGANIZ ATION 12/05/2022 [facility] DATE CREATED AUTHOR AUTHOR'S ORGANIZ ATION 04/05/2023 [facility] DATE CREATED AUTHOR AUTHOR'S ORGANIZ ATION 09/14/2023 [facility] DATE CREATED AUTHOR AUTHOR'S ORGANIZ ATION 12/13/2023 [facility] DATE CREATED AUTHOR AUTHOR'S ORGANIZ ATION 02/20/2024 [facility] dical Specialists EPIC Care Team (unrecognized sect ion and content) Credit Risk Officer Relationship Specialty Start Date End Date Cruz Rodríguez MD [address] [place] [phone] PCP - General Family Medicine 12/03/14 Credit Risk Officer Relationship Specialty Start Date End Date Cruz Rodríguez MD [address] [place] [phone] PCP - General Family Medicine 12/03/14 Credit Risk Officer Relationship Specialty Start Date End Date Cruz Rodríguez MD [address] [place] [phone] PCP - General Family Medicine 12/03/14 Credit Risk Officer Relationship Specialty Start Date End Date Cruz Rodríguez MD [address] [place] [phone] PCP - General Family Medicine 12/03/14 Credit Risk Officer Relationship Specialty Start Date End Date Cruz Rodríguez MD [address] [place] [phone] PCP - General Family Medicine 12/03/14 Credit Risk Officer Relationship Specialty Start Date End Date Cruz Rodríguez MD [address] [place] [address] PCP - General Family Medicine 12/03/14 Credit Risk Officer Relationship Specialty Start Date End Date Cruz Rodríguez MD [address] [place] [address] PCP - General Family Medicine 12/03/14 Credit Risk Officer Relationship Specialty Start Date End Date Cruz Rodríguez MD [address] [place] [address] PCP - General Family Medicine 12/03/14 Credit Risk Officer Relationship Specialty Start Date End Date Cruz Rodríguez MD [address] [place] [phone] PCP - General Family Medicine 12/03/14 Credit Risk Officer Relationship Specialty Start Date End Date Cruz Rodríguez MD [address] [place] [address] PCP - General Family Medicine 12/03/14 Credit Risk Officer Relationship Specialty Start Date End Date Cruz Rodríguez MD [address] [place] [address] PCP - [facility] 09/26/21 Cruz Rodríguez MD [address] [place] [address] PCP - General Family Medicine 04/10/23 Cruz Rodríguez MD [address] [place] [address] PCP - [facility] 02/24/23 Zenobia East NP [address] [place] [address] Nurse Practitioner Family Medicine 10/05/23 Trista Thao NP [address] [place] [address] Nurse Practitioner Pulmonary Disease 10/05/23 Source Comments (unrecognize d section and content) In the event this informatio n is protected by the Federal Confidentiality of Alcohol and Drug Abuse Patient Records regulations: The Federal rules restrict any use of the information to criminally investigate or prosecute any alcohol or drug abuse patient.[facility] CenterIn the event this information is protected by the Federal Confidentiality of Alcohol and Drug Abuse Patient Records regulations: The Federal rules restrict any use of the information to criminally investigate or prosecute any alcohol or drug abuse patient.[facility] CenterIn the event this information is protected by the Federal Confidentiality of Alcohol and Drug Abuse Patient Records regulations: The Federal rules restrict any use of the information to criminally investigate or prosecute any alcohol or drug abuse patient.[facility] CenterIn the event this information is protected by the Federal Confidentiality of Alcohol and Drug Abuse Patient Records regulations: The Federal rules restrict any use of the information to criminally investigate or prosecute any alcohol or drug abuse patient.[facility] CenterIn the event this information is protected by the Federal Confidentiality of Alcohol and Drug Abuse Patient Records regulations: The Federal rules restrict any use of the information to criminally investigate or prosecute any alcohol or drug abuse patient.[facility] CenterIn the event this information is protected by the Federal Confidentiality of Alcohol and Drug Abuse Patient Records regulations: The Federal rules restrict any use of the information to criminally investigate or prosecute any alcohol or drug abuse patient.[facility] CenterIn the event this information is protected by the Federal Confidentiality of Alcohol and Drug Abuse Patient Records regulations: The Federal rules restrict any use of the information to criminally investigate or prosecute any alcohol or drug abuse patient.[facility] CenterIn the event this information is protected by the Federal Confidentiality of Alcohol and Drug Abuse Patient Records regulations: The Federal rules restrict any use of the information to criminally investigate or prosecute any alcohol or drug abuse patient.[facility] CenterIn the event this information is protected by the Federal Confidentiality of Alcohol and Drug Abuse Patient Records regulations: The Federal rules restrict any use of the information to criminally investigate or prosecute any alcohol or drug abuse patient.[facility] CenterIn the event this information is protected by the Federal Confidentiality of Alcohol and Drug Abuse Patient Records regulations: The Federal rules restrict any use of the information to criminally investigate or prosecute any alcohol or drug abuse patient.[facility] CenterIn the event this information is protected by the Federal Confidentiality of Alcohol and Drug Abuse Patient Records regulations: The Federal rules restrict any use of the information to criminally investigate or prosecute any alcohol or drug abuse patient.[facility] CenterIn the event this information is protected by the Federal Confidentiality of Alcohol and Drug Abuse Patient Records regulations: The Federal rules restrict any use of the information to criminally investigate or prosecute any alcohol or drug abuse patient.[facility] CenterIn the event this information is protected by the Federal Confidentiality of Alcohol and Drug Abuse Patient Records regulations: The Federal rules restrict any use of the information to criminally investigate or prosecute any alcohol or drug abuse patient.[facility] Reason for Visit (unrecogniz ed section and content) Reason Comments Menstrual Problem Reason Comments Vaginal Bleeding Reason Comments Endometriosis Reason Comments Insurance Authorization [place] Reason Comments Pelvic Pain Specialty Diagnoses / Procedures Referred By Contac t Referred To Contact PRODUCT INSPECTION SUPERVISOR / GYNECOLOGY Diagnoses Painful menstrual periods Painful Periods Procedures OFFICE/OUTPATIENT ESTABLISHED [facility] 10-19 MIN EST WHI PATIENT Srinivasa Downs, MUSTANGER.SENIOR DIRECTOR INSIGHT [address] [place] [address] Srinivasa Downs, MUSTANGER.SENIOR DIRECTOR INSIGHT [address] [place] [address] Referral ID Status Reason Start Date Expiration Date V isits Requested Visits Authorized [id number] Authorized 08/20/2023 11/25/2023 1 99 Reason Comments Radiology MRI Specialty Diagnoses / Procedures Referred By Contac t Referred To Contact MR IMAGING Diagnoses Pelvic and perineal pain Procedures MRI FEMALE PELVIS WO/W IVCON MRI PELVIS W/O & W/CONTRAST MATERIAL Charlene Rodriguez, DO [address] [facility] [address] [place] [address] [place] [address] Referral ID Status Reason Start Date Expiration Date V isits Requested Visits Authorized [id number] Closed Auto-Generate d Referral 05/17/2023 06/15/2024 1 [...] BE BASED ON THE PRIMARY CLINICAL RECORDS. [facility]. provides no warranty or guarantee of the accuracy or completeness of information in this document.
[2024-02-29 06:26] LABS: Basophils Absolute Auto 0.1 10^3/uL (0.0-0.1); Basophils Percent Auto 0.8 % (0.2-2.0); Eosinophils Absolute Auto 0.1 10^3/uL (0.0-0.7); Eosinophils Percent Auto 1.4 % (0.9-7.0); Hematocrit 40.8 % (36.0-48.0); Hemoglobin 13.1 g/dL (12.0-16.0); Immature Granulocytes Abs Auto 0.02 10^3/uL (0.00-0.03); Immature Granulocytes Pct Auto 0.3 % (0.0-0.5); Lymphocytes Absolute Auto 3.5 10^3/uL (1.2-3.8); Lymphocytes Percent Auto 45.2 % (20.5-60.0); Mean Corpuscular HGB Conc 32.1 g/dL (29.9-35.2); Mean Corpuscular Volume 87.2 fL (81.0-99.0); Mean Platelet Volume 9.9 fL (9.5-13.5); Monocytes Absolute Auto 0.6 10^3/uL (0.3-0.8); Neutrophils Absolute Auto 3.4 10^3/uL (1.4-6.5); Neutrophils Percent Auto 44.3 % (43.0-75.0); Platelet Count 344 10^3/uL (150-450); Red Blood Count 4.68 10^6/uL (4.20-5.40); Red Cell Distribution Width 12.5 % (11.0-15.0); White Blood Count 7.7 10^3/uL (4.0-11.0)
[2024-02-29 06:53] LABS: HCG Quantitative <1 mIU/mL
[2024-02-29] MEDS: LACTATED RINGER'S SOLUTION 1,000 ML 50 ML IV ×2 (06:55→08:37)
--- NOTE | 2024-02-29 09:06 | P.ON_ITS ---
Brief Operative Note Date of procedure: 02/29/24 Pre-op diagnosis general: pelvic pain Post-op diagnosis: same as pre-op Procedure: NAME OF PROCEDURE: [diagnostic laparoscopy ] findings-pelvic vascular congestion syndrome PROCEDURE: The patient was taken back to the Operating Room where she was placed in dorsal lithotomy position after given general anesthesia. The patient was prepped and draped in normal sterile fashion. A sponge stick was placed into the patient's vagina. Attention was turned to the patient's abdomen, where a small umbilical incision was made. The fascia was tented using Kumar clamps and the fascia was entered sharply. Confirmation of intraabdominal placement of the 10 mm port was confirmed under direct visualization using a laparoscope. The patient's abdomen was then insufflated using CO2 gas with approximately 4 liters. A second port was placed left laterally, this was done under direct visualization with a 5 mm port. Survey of the patient's abdomen demonstrated normal liver and gallbladder. Survey of the patient's pelvic anatomy demonstrated normal appearing rt and lt ovary and tubes as well as normal appearing uterus. No endometrial implants could be noted, no evidence of any pelvic disease was seen, normal appearing pelvic cavity. All instruments were removed from the patient's abdomen. The patient's abdomen was deinsufflated of CO2 gas. The patient tolerated the procedure well. Sponge stick was removed from the patient's vagina. The patient's infraumbilical fascia was closed using #0 Vicryl on a GI needle. The patient's skin was closed laterally and infraumbilically using 4-0 Vicryl. The patient tolerated the procedure well. Sponge, lap and needle counts were correct x 2. The patient was taken to Recovery Room in stable condition. Anesthesia: SARAHA Surgeon: Nathan Pop Soyfreeze Operator: Jenn Garg Estimated blood loss (mL): 5 Pathology: none sent Condition: stable Disposition: PACU Urinary Catheter Management Urinary Catheter Management Urethral: Cath placed during this visit: no
[2024-02-29] MEDS: LACTATED RINGER'S SOLUTION 1,000 ML 150 ML IV (11:30)
[2024-02-29] MEDS: HYDROCODONE/ACET 5-325 MG TABLET 1 TAB PO (11:39)
[2024-02-29] MEDS: LACTATED RINGER'S SOLUTION 1,000 ML 75 ML IV (13:33)
== END 2024-02-29 14:20 | disposition home or self-care (01) ==
PROVIDERS: Family Provider Family Medicine; Visit Provider Obstetrics & Gynecology
PROC: (CPT 00840; principal; 2024-02-29 08:30)
DX: R10.2 Pelvic and perineal pain (principal); N94.89 Other specified conditions associated with female genital organs and menstrual cycle; I10 Essential (primary) hypertension; N94.6 Dysmenorrhea, unspecified; N80.9 Endometriosis, unspecified
CPT/HCPCS: 00840; 49320; 36415; 51701; 51702; 51798; 84702; 85025; J1094; J2704

== ENCOUNTER 2024-08-18 20:40 | Outpatient (REF) | payer BC, OTHER, SELFPAY ==
--- OUTSIDE RECORDS SUMMARY | 2024-08-18 20:48 | XMS_ITS | CCD ---
Author Organization [facility] Care Team Providers Care Center Director Lead Teacher Name Role Phone Unavailable Unavailable OPAL LARA Referring Unavailable CRUZ RODRÍGUEZ Primary Care Unavailable OPAL LARA Referring Unavailable CRUZ RODRÍGUEZ Primary Care Unavailable CRUZ RODRÍGUEZ Primary Care Physician [phone] Domo Hodges Unavailable PAOLO DIALLO Attending Unavailable KATHE RYDER Admitting Unavailable KATHE RYDER Attending Unavailable Rodríguez, Cruz Primary Care Unavailable Cruz Meza Admitting Unavailable Cruz Meza Attending Unavailable Rodríguez, Cruz Admitting Unavailable Rodríguez, Cruz Primary Care Unavailable RodríguezCruz Attending Unavailable Rodríguez, Cruz Primary Care Unavailable RodríguezCruz Attending Unavailable Rodríguez Cruz Admitting Unavailable Cruz Rodríguez MD Primary Care Provider Lara, Astrit H Admitting Unavailable Nathan POP Attending Unavailable MD Cruz Meza Admitting Unavailable MD Cruz Meza Attending Unavailable Von Loco Attending Unavailable Lara, Astrit H Attending Unavailable Fredi DORSEY Admitting Unavailable Fredi DORSEY Attending Unavailable SRINIVASA DOWNS Attending Unavailable SRINIVASA DOWNS Referring Unavailable Cruz Rodríguez MD Unavailable [phone] Cruz Rodríguez MD Primary Care Provider Cruz Rodríguez MD Unavailable Kita WHITE METAL CORROSION PROOFER, Zenobia Unavailable Keesha WHITE METAL CORROSION PROOFER, Trista Hurtado Unavailable Cruz Rodríguez MD Primary Care Provider CHARLENE RODRIGUEZ Referring Unavailable RODRÍGUEZ, CRUZ BAXTER Primary Care Unavailable CHARLENE RODRIGUEZ Attending Unavailable RODRÍGUEZ, CRUZ BAXTER Referring Unavailable RODRÍGUEZ, CRUZ BAXTER Primary Care Unavailable BILLBARBARA, CHARLENE Attending Unavailable RODRÍGUEZ, CRUZ BAXTER Primary Care Unavailable RODRÍGUEZ, CRUZ BAXTER Primary Care Unavailable BILLOW, CHARLENE Attending Unavailable REAPER, SRINIVASA Referring Unavailable REAPER, SRINIVASA Attending Unavailable RODRÍGUEZ, CRUZ BAXTER Primary Care Unavailable RODRÍGUEZ, CRUZ BAXTER Primary Care Unavailable REAPER, SRINIVASA Attending Unavailable KIESHA, NATHAN Attending Unavailable KIESHA, NATHAN Attending Unavailable NAY CHOUDHARY Attending Unavailable RODRÍGUEZ, CRUZ Perkins Referring Unavailable ZENOBIA MUELLER Attending Unavailable RODRÍGUEZ, CRUZ Perkins Attending Unavailable KIESHA, NATHAN Attending Unavailable Allergies Allergy Classification Reported Allergen(s) Allergy Type Date of Onset Reaction(s) Facility (1 source) No Known Medication Allergies; Translations: [No Known Medication Allergies] Propensity to adverse reactions (disorder) [facility] Repository Medications Current Medications Medication Drug Class(es) Dates Sig (Normalized) Sig (Original) atenolol 25 mg oral tablet (3 sources) beta-Adrenergic Negro Start: 02-02-2021 take 1 mg by mouth once daily atenolol 25 mg Tab mg tab(s), Oral, Daily, Refills(s) 0 Start Date: 02/02/21 Status: Ordered baclofen suppository 10 mg (CPD) (8 sources) Start: 08-24-2023 baclofen suppository 10 mg (CPD) Indications: High-tone pelvic floor dysfunction , Chronic pelvic pain in female Unwrap and insert one suppository vaginally daily at bedtime. 30 Suppository 2 08/24/2023 Active Comment on above: Unwrap and insert on e suppository vaginally daily at bedtime. cephalexin 500 mg oral capsule (5 sources) Cephalosporin Antibacterial Start: 02-14-2021 End: 07-21-2022 take 1 capsule by mouth every twelve hours Keflex 500 mg Cap 500 mg = 1 cap(s), Oral, q12hr, X 7 day(s), # 14 cap(s), Refills(s) 0 Start Date: 07/14/22 Stop Date: 07/21/22 Status: Ordered cyclobenzaprine hydrochloride 5 mg oral tablet (20 sources) Muscle Relaxant Start: 05-01-2023 End: 01-10-2024 take 1 tablet by mouth at bedtime as needed cyclobenzaprine (FLEXERIL) 5 mg tablet Indications: Dysmenorrhea , Chronic pelvic pain in female Take 1 tablet by mouth at bedtime as needed. 30 tablet 1 05/01/2023 Active Start: 11-07-2021 take 1 tablet by ghada th three times daily as needed for muscle spasms cyclobenzaprine 10 mg Tab 10 mg = 1 tab(s), Oral, TID, PRN for spasm, # 30 tab(s), Refills(s) 0, [facility], 157, cm, 01/23/22 7:20:00 EST, Height/Length Dosing, 55, kg, 01/23/22 7:20:00 EST, Weight Dosing Start Date: 01/23/22 Status: Ordered Comment on above: Take 1 tablet by ghada at bedtime as needed. cyproheptadine hydrochloride 4 mg oral tablet (8 sources) Start: 1 take 1 mg by mouth three times daily cyproheptadine 4 mg Tab mg tab(s), Oral, TID, Refills(s) 0 Start Date: 02/02/21 Status: Ordered Dasetta oral tablet (1 source) Start: 6 take 1 tablet by mouth once daily Dasetta oral tablet 1 tab(s), Oral, Daily, Refill(s) 0, control/menstrual regulation Start Date: 11/23/16 Status: Ordered docusate sodium 100 mg oral capsule (2 sources) Start: 2 End: 2 take 1 capsule by mouth twice daily Colace 100 mg Cap 100 mg = 1 cap(s), Oral, BID, X 10 day(s), # 20 cap(s), Refills(s) 0 Start Date: 07/14/22 Stop Date: 07/24/22 Status: Ordered elagolix 150 mg oral tablet (13 sources) Start: 3 End: 4 take 1 tablet by mouth once daily elagolix (ORILISSA) 150 mg tablet Take 1 tablet (150 mg) by mouth once daily. 30 tablet 11 07/16/2023 07/15/2024 Active Start: 02-09-2022 take 1 tablet by ghada th twice daily Orilissa 200 MG Oral Tablet take 1 tablet by mouth twice a day Quantity: 60 Refills: 4 Ordered: 09-Feb-2022 Charlene Rodriguez DO Start : 09-Feb-2022 Active Comment on above: Take 1 tablet (150 m g) by mouth once daily. ergocalciferol 0.05 mg oral capsule (1 source) Provitamin D2 Compound Start: 1 Vitamin D2 2000 intl units oral capsule Oral, Daily, Refills(s) 0 Start Date: 02/02/21 Status: Ordered Ethinyl Estradiol / Levonorgestrel (2 sources) Progestin, Estrogen, Progestin-containing Intrauterine Device Start: 4 End: 4 take 1 tablet by mouth in the morning, then take 1 tablet by mouth once daily levonorgestrel-eth inyl estradiol (Jolessa) 0.15-0.03 MG tablet Indications: Uses [...] } Pack [Dase (2 sources) Estrogen Start: 6 take 1 tablet by mouth once daily Dasetta 7// oral tablet 1 tab(s), Oral, Daily, Refill(s) 0, control/menstrual regulation Start Date: 11/23/16 Status: Ordered ethinyl estradiol 0.035 mg / norgestimate 0.25 mg oral tablet (3 sources) Progestin, Estrogen Start: 3 norgestimate-ethin yl estradiol (Ortho-Cyclen) 0.25-35 MG-MCG tablet 1 (one) time each day at the same time. 0 01/15/2023 Active Bedford-Linyah 0.25 -35 MG-MCG Oral for 28 Not-Taking [...] Weight Dosing Start Date: 01/23/22 Status: Ordered iv contrast (will be provided with radiology test) (12 sources) Start: 05-17-2023 iv contrast (will be provided with radiology [...] in the MR contrast administration guidelines link. meloxicam 15 mg oral tablet (3 sources) Nonsteroidal Anti-inflammatory Drug Start: 02-02-2021 take 1 mg by mouth once daily meloxicam 15 mg oral tablet mg tab(s), Oral, Daily, Refills(s) 0 Start Date: 02/02/21 Status: Ordered 24 hr metoprolol succinate 25 mg extended release oral tablet (17 sources) beta-Adrenergic Negro Start: 10-23-2023 take 1 [...] 01/03/2024 07/01/2024 Active Start: 04-11-2023 End: 04-10-2024 take 1 tablet by mouth once daily norethindrone (AYGESTIN) 5 mg tablet Take 1 tablet by mouth once daily. 30 tablet 11 04/11/2023 Active Start: 07-21-2020 take 1 tablet by ghada th once daily Norethindrone Acetate 5 MG Oral Tablet TAKE 1 TABLET DAILY. Quantity: 1 Refills: 0 Ordered: 21-Jul-2020 Charlene Rodriguez DO Start : 21-Jul-2020 Active Comment on above: Take 1 tablet by ghada th once daily. Take 2 tablets by mo uth once daily. ondansetron 4 mg oral tablet [...] Refills(s) 0 Start Date: 02/02/21 Status: Ordered Surgical Lubricant Jelly gel (12 sources) Start: 05-17-2023 Surgical Lubricant Jelly gel For MRI Female Pelvis, MRI department to provide. Administer intra-vaginal Surgilube immediately prior the MRI procedure (total amount to patient toleranace). 1 g 0 05/17/2023 Active Comment on above: For MRI Female Pelvi s, MRI department to provide. Administer intra-vaginal Surgilube immediately prior the MRI procedure (total amount to patient toleranace). tiZANidine 4 mg oral tablet (3 sources) Central alpha-2 Adrenergic Agonist Start: 02-02-2021 take 1 mg by mouth every eight hours tiZANidine 4 mg Tab mg tab(s), Oral, q8hr, Refills(s) 0 Start Date: 02/02/21 Status: Ordered traMADol hydrochloride 50 mg oral tablet (9 sources) Opioid Agonist Start: 08-30-2023 take 1 tablet by mouth every four [...] every 4 hours as needed for pain. Vitamin D2 1999 intl units oral capsule (7 sources) Start: 02-02-2021 Vitamin D2 2000 intl units [...] a day for 30 day(s) May, Not-Taking chlordiazePOXIDE hydrochloride 5 mg / clidinium bromide 2.5 mg oral capsule (1 source) Anticholinergic, Benzodiazepine Start: 06-02-2020 take 1 capsule by mouth every eight hours chlordiazePOXID E-Clidinium 5-2.5 MG 1 capsule before meals Orally Three times a day for 30 day(s) May, Not-Taking FLUoxetine 20 mg oral capsule (16 sources) Serotonin Reuptake Inhibitor Start: 06-02-2021 take [...] Take 10 mg by mouth once daily. metoclopramide 10 mg oral tablet (1 source) Dopamine-2 Receptor Antagonist Start: 0 take 1 tablet by mouth every eight hours Reglan 10 MG 1 tablet before meals Orally tid for 30 day(s) March, Not-Taking naproxen 500 mg oral tablet (20 sources) Nonsteroidal Anti-inflammatory Drug Start: 1 take 1 tablet by mouth twice daily [...] above: Take 1 tablet by ghada th twice daily as needed. for pain. Take with food. nitrofurantoin, macrocrystals 25 mg / nitrofurantoin, monohydrate 75 mg oral capsule (6 sources) Nitrofuran Antibacterial Start: Nitrofurantoin Monohyd Macro 100 MG Oral Capsule [...] days, # 9 tab(s), Refills(s) 0, Pharmacy: [facility] 858, 157, cm, 03/04/21 7:22:00 EDT, [...] tablet 0 09/10/2023 01/10/2024 Discontinued (Therapy completed) Problems Active Problems Problem Classification Problem Date Documented Da te Episodic/Chronic Anxiety disorders (18 sources) Anxiety; Translations: [Anxiety state, unspecified] Onset: 10-08-2020 10-08-2020 Chronic Cardiac dysrhythmias (2 sources) Paroxysmal tachycardia; Translations: [Paroxysmal tachycardia, unspecified] Onset: 03-29-2023 03-29-2023 Chronic Deficiency and other anemia (1 source) Anemia, unspecified; Translations: [Anemia, unspecified] Onset: 03-23-2023 Episodic Endometriosis (7 sources) Endometriosis (clinical); Translations: [Endometriosis, site unspecified] Onset: 03-29-2023 Chronic Essential hypertension (18 sources) Essential (primary) hypertension; Translations: [Hypertensive disorder] [...] 03-29-2023 03-29-2023 Chronic Other nervous system disorders (2 sources) Chronic pain; Translations: [Other chronic pain] Onset: 03-29-2023 03-29-2023 Chronic Other nervous system disorders (1 source) Other chronic pain; Translations: [Chronic pelvic pain in female] Onset: 08-24-2023 Chronic Other screening for suspected conditions (not [...] pain; Translations: [Epigastric pain] Onset: 07-14-2022 Episodic Acquired foot deformities (2 sources) Acquired equinus [...] dysfunction] Onset: 08-24-2023 Episodic Other gastrointestinal disorders (17 sources) Constipation; Translations: [Constipation, unspecified] Onset: 10-08-2020 10-08-2020 Episodic Other gastrointestinal disorders (2 sources) Swallowing painful; Translations: [Dysphagia, unspecified] Onset: 03-29-2023 03-29-2023 Episodic Other nutritional; endocrine; and metabolic disorders (16 sources) Loss of appetite; Translations: [Anorexia] Onset: 05-27-2020 10-08-2020 Episodic Syncope (15 sources) Vasovagal syncope; Translations: [Syncope and collapse] Onset: 12-08-2014 12-08-2014 Episodic Unclassified (7 sources) Onset: 07-14-2022 Resolved: 03-26-2023 07-14-2022 Results Test Name Value Interpretation Reference Range Facility [facility] 04-29-2024 [facility] Telephone ([facility]) DRISS COPE ([id number]) 1995 F Date Time Provider Department 04/29/24 CHARLENE RODRIGUEZ [facility] During your visit today, we recorded the following information about you: Christa Garces 04/29/2024 8:24 AM Signed Received message from admin Anna Webb to cancel surgery and all appts as pt had services elsewhere Allergies As of Date: 04/29/2024 (No Known Allergies) Date Reviewed: 12/10/2023 Reviewed by: Alayna Faye - Fully Assessed Prescriptions as of 04/29/2024 - norethindrone (AYGESTIN) 5 mg tablet Take 2 tablets by mouth once daily. - traMADol (ULTRAM) 50 mg tablet Take 1 tablet by mouth every 4 hours as needed for pain. - baclofen suppository 10 mg (CPD) Unwrap and insert one suppository vaginally daily at bedtime. - elagolix (ORILISSA) 150 mg tablet Take 1 tablet (150 mg) by mouth once daily. - iv contrast [...] once daily. Problem List As Of Date 04/29/2024 Noted Resolved Vasovagal attack [R55] 12/08/2014 Dysmenorrhea [N94.6] 10/08/2020 Anorexia [R63.0] 05/27/2020 Anxiety [F41.9] 10/08/2020 Constipation [K59.00] 10/08/2020 Migraine [G43.909] 10/08/2020 HTN (hypertension) [I10] En[facility] Status:[facility] DRISS COPE ([id number]) 1995 F Date Time Provider Department 04/25/24 CHARLENE RODRIGUEZ During your visit today, we recorded the following information about you: Anna De Leon 04/25/2024 1:10 PM Signed Pt got in sooner for surgery with her local inventory control specialist. Please cancel surgery and all pre and post op appts. Allergies As of Date: 04/25/2024 (No Known Allergies) Date Reviewed: 12/10/2023 Reviewed by: Alayna Faye E - Fully Assessed Reason for Visit: Surgery Cancelled [[id number]] Prescriptions as of 04/25/2024 - norethindrone (AYGESTIN) 5 mg tablet Take 2 tablets by mouth once daily. - traMADol (ULTRAM) 50 mg tablet Take 1 tablet by mouth every 4 hours as needed for pain. - baclofen suppository 10 mg (CPD) Unwrap and insert one suppository vaginally daily at bedtime. - elagolix (ORILISSA) 150 mg tablet Take 1 tablet (150 mg) by mouth once daily. - iv contrast [...] once daily. Problem List As Of Date 04/25/2024 Noted Resolved Vasovagal attack [R55] 12/08/2014 Dysmenorrhea [N94.6] 10/08/2020 Anorexia [R63.0] 05/27/2020 Anxiety [F41.9] 10/08/2020 Constipation [K59.00] 10/08/2020 Migraine [G43.909] 10/08/2020 HTN (hypertension) [I10] Encounter Status:Closed by ANNA DE LEON on 04/25[facility] Telephone (Q) DRISS COPE ([id number]) 1995 F Date Time Provider Department 12/12/23 CHARLENE RODRIGUEZ [facility] During your visit today, we recorded the [...] Encounter Status:Closed by CHRISTA GARCES on 12/12/23 [facility] 12-10-2023 CNOV Office Visit ([facility] ) DRISS COPE ([id number]) 1995 F Date Time Provider Department 12/10/23 10:30 AM CHARLENE RODRIGUEZ During your visit today, we recorded the following information about you: Pulse Blood pressure Weight 98/minute 124/84 68.9 kg Charlene Rodriguez DO 12/10/2023 3:14 PM Signed [facility] SECTION FOR MINIMALLY INVASIVE GYNECOLOGIC SURGERY OUTPATIENT VISIT DATE 12/10/2023 OUTPATIENT VISIT TYPE Follow-up visit PRIMARY CARE PHYSICIAN: Cruz Rodríguez [address] [place] [address] REFERRING PHYSICIAN: Self CHIEF COMPLAINT: No chief [...] MRI: no evidence of 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 [facility] Consent for Treatmenton 08-26 Consent for Treatment [id number] IFF [facility] Discharge Instructionson Discharge Instructions [id number] IFF [facility] ED Clinical Summaryon 2022 ED Clinical Summary (Inserted Image. Poly ble to display) [place] [id number] ED Clinical Summary Person Information Name: DRISS COPE [facility] Age: 28 Years : 1995 Sex: Female Language: Chilean PCP: CRUZ RODRÍGUEZ MD Marital Status: Single [...] 09/12/2023 18:18:13 09/12/2023 18:18:13 09/12/2023 18:18:13 ADDRESS: [address] [place] [phone] PHYS DOC NOTES: MEDICAL INFORMATION: Prescriptions Given: [...] to Take Your Blood Pressure; Hypertension, Adult, Wmax-lf-Ghco; General Headache Without Cause, Dmzz-lm-Ximf Follow up: With: Address: When: CRUZ RODRÍGUEZ [facility] [place] [address] Business (1) In 3 days 09/15/2023 Comments: Follow-up with your primary care provider in 3 to 5 days. If symptoms worsen, do not improve, or new symptoms arise please report back to emergency department for further evaluation. DIAGNOSIS: Elevated blood pressure reading; Headache [facility] ED Note-Physicianon 09-12-20 ED Note-Physician Basic Information [...] and Complexity of Problems Differential Diagnosis: [] [facility] Data External documents reviewed: [] My EKG [...] RODRÍGUEZ In 3 days 09/15/2023 EDT [address] [place] [address]- Business (1) Additional Instructions: Follow-up with your primary care provider in 3 to 5 days. If symptoms worsen, do not improve, or new symptoms arise please report back to emergency department for further evaluation. Patient Education How to Take Your Blood Pressure Hypertension, Adult, Lxby-qn-Ridj General Headache Without Cause, Cjkk-ft-Rknx Attestation Patient seen and evaluated by the physician assistant front desk manager. Attending physician was present in the emergency department and supervised care. This visit was performed by both the physician and an APC. I performed all aspects of the MDM as doc (more content not included)... [facility] Comment on above: Result Comment: Elec tronically Signed By: Nikita Reyes PA-C\.br\Date and Time Signed: 09/12/23 18:09 EDT\.br\Electronically Co-Signed By: oVn Loco DO\.br\Date and Time Co-Signed: 09/12/23 19:10 [...] Keep all follow-up visits. Medicines ? Take okqz-mei-jytaszr and prescription medicines only as told by [...] For m (more content not included)... [facility] ED Patient Summaryon 023 ED Patient Summary (Inserted Image. Poly ble to display) [address] [address] Patient Discharge Instructions Person Information Name: DRISS COPE Age: 28 Years Arrival Date: 09/12/2023 17:21:17 Discharge Diagnosis: Elevated blood pressure reading; Headache Primary Care Physician: CRUZ RODRÍGUEZ MD Provider Information Primary Provider: Von Loco DO Advanced End Touching Machine Operator:None The exam and treatment you received in the Emergency Department were for an urgent problem and are not intended as complete care. It is important that you follow up with a doctor, nurse practitioner, or physician?s assistant front desk manager for ongoing care. If your symptoms become worse or you do not improve as expected and you are unable to reach your usual health care provider, you should return to the Emergency Department. We are available 24 hours a day. DRISS COPE has been given the following list of patient education materials, prescriptions and follow-up instructions: Follow-up Instructions: With: Address: When: CRUZ RODRÍGUEZ [address] [place] [address] [place] [address] [facility] (1) In 3 days 09/15/2023 Comments: Follow-up [...] to Take Your Blood Pressure; Hypertension, Adult, Gdzd-ae-Ytwu; General Headache Without Cause, Ydxd-tr-Qpus A MESSAGE TO ALL PATIENTS REGARDING OPIOIDS PRESCRIPTION OPIOIDS: WHAT YOU NEED TO KNOW Prescription opioids can be used to help relieve tqidvppe-wd-rrxbey pain and are often prescribed following a [...] Administration (www.fda.gov/Drugs/Reso (more content not included)... [facility] Cytology Cervical or vaginal smear or scraping [facility] 08-15-2023 [facility] 08-02-20[facility] DRISS COPE ([id number]) 1995 F Date Time Provider Department 08/02/23 CHARLENE RODRIGUEZ [facility] During your visit today, we recorded [...] are able too. Please advise. Thanks. Christa Suárez, RN 08/02/2023 12:02 PM Signed PA for orilissa completed via Cover [employer]. Driss Cope (Morales: [id number]) - [id number] Orilissa 150MG tablets Status: Sent To Plan Created: August 02, 2023 Sent: August 02, 2023 Christa Suárez RN Anna De Leon 08/03/2023 10:22 AM Signed Christa Suárez RN 08/09/2023 1:36 PM Signed Patient notified of approval via MyC message. Encounter closed. Christa Suárez RN Allergies As of Date: 08/02/2023 (No Known Allergies) Date Reviewed: 07/16/2023 Reviewed by: Zenobia Lyman RN - Fully Assessed Reason for Visit: Insurance Authorization [[id number]] Cmt: Orilissa Prescriptions as of 08/09/2023 - [...] Encounter Status:Closed by LESLEY LYNN on 08/02/23 [facility]16-[facility]23 CNOV Office Visit ([facility] ) DRISS COPE ([id number]) 1995 F Date Time Provider Department 07/16/23 11:30 AM CHARLENE RODRIGUEZ During your visit today, we recorded the following information about you: Blood pressure Last Period 136/90 07/08/23 Charlene Rodriguez DO 07/16/2023 12:41 PM Signed [facility] SECTION FOR MINIMALLY INVASIVE GYNECOLOGIC SURGERY OUTPATIENT VISIT DATE 07/16/2023 OUTPATIENT VISIT TYPE Follow-up visit PRIMARY CARE PHYSICIAN: Cruz Rodríguez [address] [place] [address] REFERRING PHYSICIAN: Cruz Rodríguez CHIEF COMPLAINT: No [...] additional bowel lesions identified 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 [facility] Nonvisit Note - PTon 023 Nonvisit Note - PT she canceled in the reminder system on 06-18-23 for her appointment 06-19-23. [facility] PT - Otheron 06-18-2023 PT - Other [id number] CD:127 [facility] MRI FEMALE PELVIS WO/W IVCON on 06-12-2023 [...] additional findings. IMPRESSION: No deep infiltrating endometriosis. Patient Service Rep: PSCB Transcribe Date/Time: Jun 12 2023 2:54P Dictated by : ASHLEY DUKE MD This examination was interpreted and the report reviewed and electronically signed by: SONIDO FLAHERTY MD on Jun 12 2023 4:51PM EST [id number] [facility] Nonvisit Note - PTon 023 Nonvisit Note - PT canceled in the reminder system. KK [facility] Nonvisit Note - PTon 023 Nonvisit Note - PT didn't show for her appointment today. [facility] Insurance Correspondenceon 0 05-14-2023 Insurance Correspondence [id number] D:127 [facility] CNPNon 05-11-2023 CNPN Telephone (GYNMN) DRISS COPE ([id number]) 1995 F Date Time Provider Department 05/11/23 CHARLENE RODRIGUEZ [facility] During your visit today, we recorded the following information about you: Tawana Nair [facility] 05/11/2023 1:21 PM Signed Reason for call: [...] Takes aygestin 5mg daily. She did not rock picker flexeril. Encourage to rock picker the flexeril as this will help with the cramping. Reviewed red flag bleeding symptoms that require trip to ER (soaking greater than one overnight pad per hour, chest pain, shortness of breath, fatigue, palpitations).. Advised keep appt. Gives verbal understanding. Appointments for Next 60 Days Date Time Provider Location Dept Phone 05/17/2023 1:00 PM CHARLENE RODRIGUEZ [facility] [phone] Christa Suárez RN Allergies As of Date: 05/11/2023 (No Known Allergies) Date Reviewed: 05/09/2023 Reviewed by: Srinivasa Downs APRN.TERRAZZO LAYER HELPER - Fully Assessed Reason for Visit: Vaginal [...] Encounter Status:Closed by CHRISTA WILLINGHAM on 05/11/23 [facility] Operative Reporton Operative Report SURGERY DATE: 12/30/2022 [employer]: None PREOPERATIVE DIAGNOSES: 1. Vaginal bleeding 2. [...] in stable condition. Marlen Gonzalez Dictated: 12/30/2022 [id number] Transcribed: 01/01/2023 [facility] Comment on above: Result Comment: Elec tronically Signed By: Nathan POP DO\.br\Date and Time Signed: 05/10/23 11:28 EDT PT - Consentson 05-10-2023 PT - Consents [id number]#[id number] D:127 [facility] Consent for Treatmenton 04-26 Consent for Treatment [id number] D:127 [facility] PT - Orderson 05-09-2023 PT - Orders [id number]#[id number] CD:127 [facility] Nonvisit Note - PTon 023 Nonvisit Note - PT Chart reviewed with eval prepped for scheduled eval. KK [facility] CNOVon 05-01-2023 CNOV Office Visit ([facility] ) ANATOLIYDRISS ([id number]) 1995 F Date Time Provider Department 05/01/23 10:30 AM SRINIVASA DOWNS JA During your visit today, we recorded the following information about you: Blood pressure Weight Height Last Period 148/64 64.9 kg 1.575 m 04/22/23 Srinivasa Downs APRN.[employer]ER HELPER 05/09/2023 11:46 AM Signed Driss Cope is a 28 year old female who presents for problem visit for pain HPI: Pain is week before period and week of period. Worse on her period for every day she's bleeding Urinary - No symptoms GI - Always constipated. 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 Normal [facility] Metabolic Pane siomara 03-23-2023 Albumin [Mass/Vol] 4.4 g/dL Normal 3.5-5.7 [facility] Comment on above: Order Comment: Reaso n for Exam Hypertension Reason for Exam Anemia Performed By: #### M G, CMP, CBC #### [facility] [address] Albumin/Globulin [Mass ratio] 1.4 {ratio} Normal [facility] Comment on above: Order Comment: Reaso n for Exam Hypertension Reason for Exam Anemia Performed By: #### M G, CMP, CBC #### [facility] [address] [place] [address] [place] ALP [Catalytic activity/Vol] 104 U/L Normal 34-104 [facility] Comment on above: Order Comment: Reaso n for Exam Hypertension Reason for Exam Anemia Performed By: #### M G, CMP, CBC #### [facility] [address] [place] [address] [place] ALT [Catalytic activity/Vol] 32 U/L Normal 7-52 [facility] Comment on above: Order Comment: Reaso n for Exam Hypertension Reason for Exam Anemia Performed By: #### M G, CMP, CBC #### [facility] [address] Anion gap [Moles/Vol] 11.2 mmol/L Normal 6.0-15.0 [facility] Comment on above: Order Comment: Reaso n for Exam Hypertension Reason for Exam Anemia Performed By: #### M G, CMP, CBC #### [facility] [address] AST [Catalytic activity/Vol] 23 U/L Normal 13-39 [facility] Comment on above: Order Comment: Reaso n for Exam Hypertension Reason for Exam Anemia Performed By: #### M G, CMP, CBC #### [facility] [address] [place] [address] [place] Bilirubin [Mass/Vol] 0.6 mg/dL Normal 0.3-1.0 [facility] Comment on above: Order Comment: Reaso n for Exam Hypertension Reason for Exam Anemia Performed By: #### M G, CMP, CBC #### [facility] [address] [place] [address] [place] Calcium [Mass/Vol] 9.1 mg/dL Normal 8.6-10.3 [facility] Comment on above: Order Comment: Reaso n for Exam Hypertension Reason for Exam Anemia Performed By: #### M G, CMP, CBC #### [facility] [address] [place] [address] [place] Chloride [Moles/Vol] 103 mmol/L Normal 98-107 [facility] Comment on above: Order Comment: Reaso n for Exam Hypertension Reason for Exam Anemia Performed By: #### M G, CMP, CBC #### [facility] [address] [place] [address] [place] CO2 [Moles/Vol] 26.9 mmol/L Normal 21.0-31.0 [facility] Comment on above: Order Comment: Reaso n for Exam Hypertension Reason for Exam Anemia Performed By: #### M G, CMP, CBC #### [facility] [address] [place] [address] [place] Creatinine [Mass/Vol] 0.87 mg/dL Normal 0.60-1.20 [facility] Comment on above: Order Comment: Reaso n for Exam Hypertension Reason for Exam Anemia Performed By: #### M G, CMP, CBC #### [facility] [address] [place] [address] [place] GFR/1.73 sq M.predicted MDRD (S/P/Bld) [Vol rate/Area] mL/min/{1.73_m2} [facility] Comment on above: Order Comment: Reaso n for Exam Hypertension Reason for Exam Anemia Performed By: #### M G, CMP, CBC #### [facility] [address] [place] [address] [place] Globulin (S) [Mass/Vol] 3.1 g/dL [facility] Comment on above: Order Comment: Reaso n for Exam Hypertension Reason for Exam Anemia Performed By: #### M G, CMP, CBC #### [facility] [address] [place] [id number] [place] Glucose [Mass/Vol] 100 mg/dL Normal 70-100 [facility] Comment on above: Order Comment: Reaso n for Exam Hypertension Reason for Exam Anemia Result Comment: Jal Glucose Reference Range is dependent on time and content of last meal. Glucose of more than 200 mg/dL in a nonstressed, ambulatory subject supports the diagnosis of Diabetes Mellitus. ADA recommended reference range Performed By: #### M G, CMP, CBC #### [facility] [address] [place] [address] [place] Potassium [Moles/Vol] 4.1 mmol/L Normal 3.5-5.1 [facility] Comment on above: Order Comment: Reaso n for Exam Hypertension Reason for Exam Anemia Performed By: #### M G, CMP, CBC #### [facility] [address] Protein [Mass/Vol] 7.5 g/dL Normal 6.4-8.9 [facility] Comment on above: Order Comment: Reaso n for Exam Hypertension Reason for Exam Anemia Performed By: #### M G, CMP, CBC #### [facility] [address] Sodium [Moles/Vol] 137 mmol/L Normal 136-145 [facility] Comment on above: Order Comment: Reaso n for Exam Hypertension Reason for Exam Anemia Performed By: #### M G, CMP, CBC #### [facility] [address] [place] [address] Urea nitrogen [Mass/Vol] 14 mg/dL Normal 7-25 [facility] Comment on above: Order Comment: Reaso n for Exam Hypertension Reason for Exam Anemia Performed By: #### M G, CMP, CBC #### [facility] [address] [place] [id number] [facility] Ferritinon 03-23-2023 Ferritin [Mass/Vol] 2.8 ng/mL Low 11.0-306.8 [facility] Comment on above: Order Comment: Reaso n for Exam Hypertension Reason for Exam Anemia Performed By: #### M G, CMP, CBC #### [facility] [address] [place] [id number] [place] Iron and TIBC Profileon 02-25 % Iron Saturation 3.9 % Low 20-50 [facility] Comment on above: Order Comment: Reaso n for Exam Hypertension Reason for Exam Anemia Performed By: #### M G, CMP, CBC #### [facility] [address] [place] [id number] [facility] Iron [Mass/Vol] 21 ug/dL Low 50-212 [facility] Comment on above: Order Comment: Reaso n for Exam Hypertension Reason for Exam Anemia Performed By: #### M G, CMP, CBC #### [facility] [address] Total Iron Binding Capacity 538 ug/dL High 255-450 [facility] Comment on above: Order Comment: Reaso n for Exam Hypertension Reason for Exam Anemia Performed By: #### M G, CMP, CBC #### [facility] [address] Transferrin [Mass/Vol] 384 mg/dL High 203-362 [facility] Comment on above: Order Comment: Reaso n for Exam Hypertension Reason for Exam Anemia Performed By: #### M G, CMP, CBC #### [facility] [address] Magnesiumon 03-23-2023 Magnesium [Mass/Vol] 1.9 mg/dL Normal 1.9-2.7 [facility] Comment on above: Order Comment: Reaso n for Exam Hypertension Reason for Exam Anemia Performed By: #### M G, CMP, CBC #### [facility] [address] Scan and CBCon 03-23-2023 Anisocytosis Ql (Bld) Slight Normal [facility] Comment on above: Order Comment: Reaso n for Exam Hypertension;Anemia Performed By: #### M G, CMP, CBC #### [facility] [address] [place] [address] Basophils (Bld) [#/Vol] 0.1 10*3/uL Normal 0.0-0.2 [facility] Comment on above: Order Comment: Reaso n for Exam Hypertension;Anemia Performed By: #### M G, CMP, CBC #### [facility] [address] [place] [address] [place] Basophils/100 WBC (Bld) 1.3 % Normal . [facility] Comment on above: Order Comment: Reaso n for Exam Hypertension;Anemia Performed By: #### M G, CMP, CBC #### [facility] [address] [place] [address] [place] Eosinophils (Bld) [#/Vol] 0.1 10*3/uL Normal 0.0-0.45 [facility] Comment on above: Order Comment: Reaso n for Exam Hypertension;Anemia Performed By: #### M G, CMP, CBC #### [facility] [address] [place] [address] Eosinophils/100 WBC (Bld) 1.3 % Normal . [facility] Comment on above: Order Comment: Reaso n for Exam Hypertension;Anemia Performed By: #### M G, CMP, CBC #### [facility] [address] [place] [address] Erythrocyte distribution width (RBC) [Ratio] 16.1 % High 11.9-15.3 [facility] Comment on above: Order Comment: Reaso n for Exam Hypertension;Anemia Performed By: #### M G, CMP, CBC #### [address] Hematocrit (Bld) [Volume fraction] 32.9 % Low 34.0-46.4 [facility] Comment on above: Order Comment: Reaso n for Exam Hypertension;Anemia Performed By: #### M G, CMP, CBC #### [facility] [address] [place] [address] Hemoglobin (Bld) [Mass/Vol] 10.1 g/dL Low 11.8-15.4 [facility] Comment on above: Order Comment: Reaso n for Exam Hypertension;Anemia Performed By: #### M G, CMP, CBC #### [facility] [address] [place] [address] Lymphocytes (Bld) [#/Vol] 3.3 10*3/uL Normal 1.00-4.8 [facility] Comment on above: Order Comment: Reaso n for Exam Hypertension;Anemia Performed By: #### M G, CMP, CBC #### [facility] [address] [place] [address] [place] Lymphocytes/100 WBC (Bld) 41.6 % Normal . [facility] Comment on above: Order Comment: Reaso n for Exam Hypertension;Anemia Performed By: #### M G, CMP, CBC #### [facility] [address] [place] [address] MCH (RBC) [Entitic mass] 21.2 pg Low 24.7-34.3 [facility] Comment on above: Order Comment: Reaso n for Exam Hypertension;Anemia Performed By: #### M G, CMP, CBC #### [facility] [address] MCV (RBC) [Entitic vol] 69.2 fL Low 80-100 [facility] Comment on above: Order Comment: Reaso n for Exam Hypertension;Anemia Performed By: #### M G, CMP, CBC #### [facility] [address] [place] [address] Mean Corpuscular HGB Conc 30.6 g/dL Low 32.0-35.0 [facility] Comment on above: Order Comment: Reaso n for Exam Hypertension;Anemia Performed By: #### M G, CMP, CBC #### [address] Microcytosis Moderate Normal [facility] Comment on above: Order Comment: Reaso n for Exam Hypertension;Anemia Performed By: #### M G, CMP, CBC #### [facility] [address] [place] [address] [place] Monocytes (Bld) [#/Vol] 0.7 10*3/uL Normal 0.0-0.8 [facility] Comment on above: Order Comment: Reaso n for Exam Hypertension;Anemia Performed By: #### M G, CMP, CBC #### [facility] [address] [place] [address] [place] Monocytes/100 WBC (Bld) 8.2 % Normal . [facility] Comment on above: Order Comment: Reaso n for Exam Hypertension;Anemia Performed By: #### M G, CMP, CBC #### [facility] [address] [place] [address] [place] Neutrophils (Bld) [#/Vol] 3.8 10*3/uL Normal 1.8-7.7 [facility] Comment on above: Order Comment: Reaso n for Exam Hypertension;Anemia Performed By: #### M G, CMP, CBC #### [facility] [address] [place] [address] [place] Neutrophils/100 WBC (Bld) 47.6 % Normal . [facility] Comment on above: Order Comment: Reaso n for Exam Hypertension;Anemia Performed By: #### M G, CMP, CBC #### [facility] [address] NRBC% 0.1 /100{WBC} Normal 0-0.5 [facility] Comment on above: Order Comment: Reaso n for Exam Hypertension;Anemia Performed By: #### M G, CMP, CBC #### [address] Platelet Estimate Normal Normal Normal [facility] Comment on above: Order Comment: Reaso n for Exam Hypertension;Anemia Result Comment: PERF ORMED BY: [place] [address] PATHOLOGIST HAND SOLE SEWER JESUS JIN M.D. Performed By: #### M G, CMP, CBC #### [address] Platelet mean volume (Bld) [Entitic vol] 8.2 fL Normal 6.3-10.7 [facility] Comment on above: Order Comment: Reaso n for Exam Hypertension;Anemia Performed By: #### M G, CMP, CBC #### [place] [address] [place] Platelets (Bld) [#/Vol] 393 10*3/uL Normal 150-450 [facility] Comment on above: Order Comment: Reaso n for Exam Hypertension;Anemia Performed By: #### M G, CMP, CBC #### [place] [address] [place] RBC (Bld) [#/Vol] 4.75 10*6/uL Normal 3.60-5.00 [facility] Comment on above: Order Comment: Reaso n for Exam Hypertension;Anemia Performed By: #### M G, CMP, CBC #### [address] WBC (Bld) [#/Vol] 8.0 10*3/uL Normal 3.8-11.6 [facility] Comment on above: Order Comment: Reaso n for Exam Hypertension;Anemia Performed By: #### M G, CMP, CBC #### [facility] [address] [place] [id number] [facility] Thyroid Stimulating Hormoneo n 03-23-2023 TSH Qn 1.24 m[IU]/L Normal 0.45-5.33 [facility] Comment on above: Order Comment: Reaso n for Exam Hypertension Reason for Exam Anemia Performed By: #### M G, CMP, CBC #### [facility] [address] [place] [id number] [facility] Vitamin B12on 03-23-2023 Cobalamin (Vitamin B12) [Mass/Vol] 238 pg/mL Normal 180-914 [facility] Comment on above: Order Comment: Reaso n for Exam Hypertension Reason for Exam Anemia Performed By: #### M G, CMP, CBC #### [facility] [address] Vitamin D 25 Hydroxy Totalon 03-23-2023 Vitamin D 25 Hydroxy Total 19.2 ng/mL Low 30-100 [facility] Comment on above: Order Comment: Reaso n for Exam Hypertension Reason for Exam Anemia Result Comment: KIRSTIE MIN D STATUS 25(OH)VITAMIN D RANGE (ng/mL) Deficient <20 Insufficient 20 to <30 Sufficient 30 to 100 Reference: Aaron MF,Lee NC, Gloria SUH, et al. Evaluation,treatment, and prevention of vitamin D deficiency; an Endocrine Society clinical practice guideline. JCEM. 2010; 96(7):1911-30. PERFORMED BY: [place] [address] PATHOLOGIST HAND SOLE SEWER JESUS JIN M.D. Performed By: #### M G, CMP, CBC #### [facility] [address] [place], [place] [id number] [facility] Coding Summary.on 02-03-2023 Coding Summary. CD:[id number] Gh0 bWw+PGhlYWQ+GY8NCRZyP67 kzQMhrV4cU9IVSNbVCjolWX KVKHhCRxSgsaGlMR6llBDnC XJu IC8+FN7tRBBfIogxmTMsk0S 9kDI5X06kvh7xCAksbIX1ZK PnAgKbivjpe1dgdSu7GKitU mluOyBt AJHptX57HRK4iV31Kz79uJH hnTJij3vpqMl6XnFcHVYqNC T4xZloKKkyn6BxQPQmP26cq CVka1C9 BMCerNrtnTCtAeJqiTL0iB5 eLGrpyhtlg9ncnvapDcb1gl 04yQSzc3W1sRX3R3HjdtE0H GJvbGQg FshroJUQcP5soleoh7outgn tWdJpMHYoPDw3MDw2PPHygZ aqFbDeTX48ITD8UAGqnxTgL 2FsLWFs lIywZcH0f7A8Yj9BX9LSNlv oM1HTIZTVTYxhiFB+PC90cj 52W2SyOotgTav0KJGtTIJ5p HO5qF3z MYQwFTmil0H7qTF6X6AsaqC nos9rj2exPYTwNQlpZ16jqP Jmh3Q1IRVthPD5ZLWtaCirL iBzaG93 Oyc+YTTxlRjec0LwZvrnw2t ca6nvfHp9SwlvARWwsvXhlU ioSNE1v4GeIi3vXCKdiMV6b CU0nJ5p WqTvJnI0GOfpJ768StXjbHS gEybvX15dD5CqiSD+PHRyPj j1STBqeLhoFI9xY6OoJLZro mctbGVm fEuhIG0uEFJgztbyZSRuqX7 tIOBqD2u2OgHxOmR8XDojN0 VgQQReuvujKl07cP1kUlKbJ dF5GYrs P8QjzyK9RNZnuPImUBctSSR 7K85yn4F4VYSdXIViQDR6sZ Z0cH6jeZkvhutnmAPyrXogy mVydGlj IVnmGCjaB862OWUlmUvwPxK vZGluZyBEYXRlOiAgMDMvMT EvMjAyMzwvdGQ+EBRnFQH9r WxlPSAn sPSeNBvyXe7taWkhrVwwOR9 fRUYpxusoIRHglV3zUASgcR KylHoxPX4uQZNoylsao794V iAxMHB0 PBVifAFaC3JixF6mBjJcHDF qIYAhN5YirSWiBDxxO357LQ vxJfG3NPSrwnKpY9KuEEPpk WduOiB0 d9H9Dq2Qt4SrkhptQ1RssMW eVlVkCejcVDq5J4XbYnqszB I+FU43HVNaFQ14JVe4XQU2o WxlPSdi VRJjJ7GyjJ1oNmHoZDDmEBM kOyc+PHRhYmxlIHdpZHRoPS lpXOJzDxOixAzpVM5dWa9jK GVyLWNv pTwqxTMjDmHjy4htMZPpTBr hLR6fmYtxG3OkwLG7HNYfy1 a5Tm23H65oP6ZnwDT+PGNvb OS8qMT1 rS4fSnUuSfS1OSahR795MjO gxXYxRgehe9ord2dxwKk3Uh C8DXWxnqDslPqbRWN8f2SeV h09K43y IHdpZHRoPSIxNSUiIHZhbGl sai5hkC3yMf9+NLFkkKY6wN U8oV3lMtOdJfN1KWvuC724M nRvcCIv Asnhk5hav6kxeRz3JuAqJKM knuVcyDxuWAW9x7TvTc02S8 FjrMait9MzWod3jq51eNSdy 6I9aOZ2 M1PdOTEpveaotQMhhOblIK7 pUYTwxdatJACwbG6wIMScT1 w0SjRsTbU7CGkzE3ZuetT3A GJvbGQg JQOwlIHCvG5klgvnz6ghjlw rYaMwZVFvQQr8ZVm4EFBayR gcIeHbIIP4TcT8VMH5iVFvc D5hePwz mshzkT2oXfr+LYK0fVTovBM TDG5bXzahnKW+OPWvDYZ2kX bhVKmmNFMjvS5ySOQiV2y6W iAwLjA1 AEedC7ZvlzV4QNJbfTZuPRX ozEPFiT8sdbozs1zyqruxTj HwXIWuIHf0TBt8FAWqxTpuT iBsZWZ0 UoW6KZJ5uRXobK2ejVakimk fxB9sBfz+IldlaWlpNGY4ZH q4L4YwSeo2KQGyeIuyFG5vs GFkZGlu Gu5hsOskjFmoFL9xZLYvfdw oz875WqMzh4atXCTqgBIhJY faFWL5W00vt0X6EWRtUQXpG WK3sOW8 cS5fkToyhwykmZLzpJtbuoY wfZsoQBwvLOugF011YPYyxT czAzYgCJu0M7SuHok6RLNpn DsyZQ4p tDFpICfrEs9jaPtuuHdmEB3 nZGIcfugbe259JkErd0kvWQ XbqRQoGWtdEIB5S33oe5I5N CMwMDAw DET9nWD4eV5rhSkvmfhfhWK mdDsgdmVydGljYWwtYWxpZ2 73BCCvgChiNpRpuTo0B7BbK pk5BLXm wOarYZ2tgIXnQZzaLk9leYo bzOdgWQ0iNLYzxariq420Mu Uud6xjUPDqeSBzYAboWMH8N 11ze8M0 NPCnCCGrSYX3oKE7fK9dcFq nbjogbGVmdDsgdmVydGljYW syVEmsT422QIThiRbqHhRhu GllbnQg QCzsXEz4H1TeWoikrRY+PC9 6PIWnZA85gQPkkKWgh2bgeL r5KsQrXWTjZID0gGylINqnw 3JkZXIt P57ziOQcy3Q2VGZdbLrxcQJ vMzIwgES1fF9xKQrwmoaao1 lxmvbkWgqop0vyox81jL01C 29sIHdp ZHRoPSIzMCUiIHZhbGlnbj0 ijB4pHx4+OFXepKS6jVQ9jR 2pDHJcNzP1JBxbI400LbMcn CIvPjxj g5jai9fypMt3DdU6YQDzrdV qmZuoTLT5j8GoKf88T89eMT dpZHRoPSIyMCUiIHZhbGlnb t3ckZ2l Ii8+YDDhhOD2xRF5vF2cYzF eCiO0OBziD465BhBnqMIwIz goQ12nD6CsnEB+HYWbCpk7B CBzdHls JF0zpTYzICjtZn5aUMU1LpU sSsIhNXqrO9VwJEYfviaofk jvlVU2NULtMPBggF50Jd1ip DogMTBw sPBXmW0tajoou3ouaxmtNpN wLZSvRPx5GDd5FEWbzSyqHm DmSKG4UfO4OSE3aDEjlX5vw Glnbjog bA2tW6VgRIAwvnfuVl55kT7 bCqUsFoQ2RJwlDoy+Q0FOVE lZYWkyTLlHWXaFGM24X4JjI qw8JLAu jPkcEO2hmFRbMNezWf6onLd ihOkdEO9yIYOowugpHGCenO 0bDTIffBEmkBpsOU9rCKFoz yjwi207 NnFnLOQ0SWDwxBPjZ9JoeH9 rDmRgNLPwKKJoF4HjjCBlTE twO923SCynMwC6QJCkbdYgQ 2FsLWFs lTocCtX2h1I2Lk2dYQ7dVW3 pVEo5QI54QB03eHZzw2Z2mH E4T5OeYPSvrlfzfvymhCH4K DAuMDUw kX49aGVkHArwGl1it7X1u35 2ICMbIWUecH83Pu7ygIklYG RbmVYJpH0jxrvwe9frbcfxS zAwMDAw ODg3XPc9IZJxrPtkBhTqTWA 2IdT2PXB7gREmzO3tcOuabw mhzE6fLge+EsanFNHehpZ2F 1WrUig8 BLMgxCpbWN6wkDZdNGasSy8 jfCvibGkcEP5wSABeqhbkYB PewC7rZISbvXFxyIrsRN2gA TBpbjtm j297AzQoYYF3CMZdmYPsS3Z xjN9pXxArAJFsVUIhJ9JncC UdJNirN950SZjgGtO4WVApi zOvY5Ta CDOufAuaWvI8o8J8Sp4MXV4 qkYK5L9WmUol7NMWxlSbgJP 3szKEtQIqsQf3rcPtxaGzoW X9wBEAt buawWXTysO8nHSWxuRWmkCq cIV1rJHPnangbq831HvRnDM S5BDYinMQwP0XbpE2iOwNwG DAwMDAw E1ShsSQxGOokO066DTaiFzU 6XRWankUtY2BzXMIivQygAh V4y9C4Jf3SgQQbP2VdF6i4P 3RkPjwv dHI+AW85XMKnKY54vUMikIV bp9ayqYi8CkNqDMKwFYW9uY ixFIgoy8YrGXWnZ96esJVwr 3A8MMDu fNlgbMYfYbZrcFC7gJ8zCDg urtxny9qtzwfkQlgth9jaze 79oU33D14vMYtjRJUsNALxY CUiIHZh fIbvpz0byR9nSa7+PGNvbCB 2cKB6bK6lGcYiNcG0MItuF2 64NlLxaQYzIguhb0lcb6yxx Rh5KgWq QZRqylPmcWluHBZ2u9SwNt7 0B61hVZwwQUPtOBFqZXGuFG DvjIhyur9cmH4fSq0+PC9jb 5yfhf04 wV45aLN+YDYuYMD2qMjsEGl fKQZkgC6gWNvlKlJ3NWWmFd EuaU84pIWqZLwxQi3sfWaqv EqfYO8u AJFctelmi189YdLkz1muZXM lzHVgYKziZGI8G84zi1S9AD YaZMGwQAJ9zHJ0jQ6fdJusd jogbGVm lUyyucJgdXeoTReyUMihC44 2OWKowUpzLaFsjZBjF4ziau CJNA2oGzaptIN+SEOuCKD1r WxlPSdw REWwwT4zJKNkE5l3CmTpJeM 9VGnnZ4FvmiY0ABQkdALpZV CwrJTXpY1zccerp3xdvfhoL zAwMDAw JMp6UBa1DYQogKkcTpVyJKC 1ZcV4QCT6nDEvyM1urWozos vrbT4aQga+RklOOjwvdGQ+P HRkIHN0 fTxeNKnbOQSqeD6fVNLkY6b 4LnHbHoP7CCyxF8YejtY7GX IskFKdSDDqcTWAiA9efrrqg 2xvcjog WxUuSXRpPPy7HDb7LSRvlMq lVfGeRXN7UjF2KEW4dMEonH 5asTreheanhH8qEwa+TVJOO jwvdGQ+ ZJCwASK6wHvxOYpgIDFlvL9 mHSJrP1e8XiPmTeH8TZinX0 UuanA4ZNReaAQxYNIpzTQOm W2yyxdk y7genrmnKvMnCKPrAYp5PMm 1RGCevEdvUmLdWCT0KdG5QB D4vRUrtW5unAbtkpjmoX2dY yc+UGF5 NER6DE99NR86B7OoPxezhZN ibGU+PHRhYmxlIHdpZHRoPS agXSLdAiDnqApbZS5nRt9tR GVyLWNv bGxh (more content not included)... Normal [facility] Auto Diffon 01-31-2023 Basophils/100 WBC (Bld) 0.7 % Normal 0.0-2.0 [facility] Comment on above: Order Comment: Order Added by Discern Expert. Performed By: #### 2 [id number], [id number], [id number], [id number], [id number], [id number] ####[id number] [place] [address] Basophils/Leukocytes Auto (Bld) [Pure # fraction] 0.1 E9/L Normal 0.0-0.2 [facility] Comment on above: Order Comment: Order Added by Discern Expert. Performed By: #### 2 [id number], [id number], 7115509, [id number], [id number], [id number] ####[facility] [id number] [place] [address] Eosinophils/100 WBC (Bld) 1.1 % Normal 0.0-8.0 [facility] Comment on above: Order Comment: Order Added by Discern Expert. Performed By: #### 2 [id number], 8933925, 6218525, [id number], [id number], [id number] ####[address] [place] [address] Eosinophils/Leukocyte s Auto (Bld) [Pure # fraction] 0.1 E9/L Normal 0.0-0.5 [facility] Comment on above: Order Comment: Order Added by Discern Expert. Performed By: #### 2 043425, 3359449, 0776634, [id number], [id number], [id number] ####[facility] [address] [place] [address] Lymphocytes/100 WBC (Bld) 31.7 % Normal 14.0-50.0 [facility] Comment on above: Order Comment: Order Added by Discern Expert. Performed By: #### 2 745362, 3102278, 1300664, 11102213, 93493715, 4831279 ####[address] [place] [address] Lymphocytes/Leukocyte s Auto (Bld) [Pure # fraction] 2.4 E9/L Normal 1.0-4.0 [facility] Comment on above: Order Comment: Order Added by Discern Expert. Performed By: #### 2 004996, 1900216, 9368021, 86271600, 84669497, 9348359 ####[address] [address] Monocytes/100 WBC (Bld) 9.1 % Normal 4.0-14.0 [facility] Comment on above: Order Comment: Order Added by Discern Expert. Performed By: #### 2 692469, 1744142, 2009733, 68193014, 79320590, 8700029 ####[address] [address] Monocytes/Leukocytes Auto (Bld) [Pure # fraction] 0.7 E9/L Normal 0.2-1.0 [facility] Comment on above: Order Comment: Order Added by Discern Expert. Performed By: #### 2 503279, 5040283, 3382692, 78177312, 44383897, 1066116 ####[address] [address] Neutrophils/100 WBC (Bld) 57.4 % Normal 36.0-75.0 [facility] Comment on above: Order Comment: Order Added by Discern Expert. Performed By: #### 2 [id number], 3344106, 5681109, 22593164, 63991362, 2145448 ####[address] [place] [address] Neutrophils/Leukocyte s Auto (Bld) [Pure # fraction] 4.3 E9/L Normal 2.0-7.5 [facility] Comment on above: Order Comment: Order Added by Discern Expert. Performed By: #### 2 985338, 2444198, 0658069, 35339451, 28956187, 7927920 ####[facility] [address] [place] [address] BMPon 01-31-2023 Creatinine [Mass/Vol] 1.0 mg/dL Normal 0.5-1.3 [facility] Comment on above: Performed By: #### 2 076242, 3466367, 4097611, 27583381, 01495330, 0573890 ####[facility] [address] [place] [address] Urea nitrogen [Mass/Vol] 10 mg/dL Normal 5-21 [facility] Comment on above: Performed By: #### 2 443746, 3602739, 3923274, 79972294, 17433605, 7202478 ####[facility] [address] [place] [address] Urea nitrogen/Creatinine [Mass ratio] 10 No Units Normal 10-20 [facility] Comment on above: Performed By: #### 2 209969, 7225178, 0715964, 80944750, 96594843, 3787429 ####[facility] [address] [place] [address] Anion gap [Moles/Vol] 14 mmol/L Normal 6-16 [facility] Comment on above: Performed By: #### 2 108891, 1281052, 6160188, 77632074, 84006024, 4173067 ####[facility] [address] [place] [address] Calcium [Mass/Vol] 8.8 mg/dL Low 8.9-11.1 [facility] Comment on above: Performed By: #### 2 140802, 2537398, 8079673, 90962103, 51241939, 3012699 ####[facility] [address] [place] [address] Chloride [Moles/Vol] 100 mmol/L Low 101-111 [facility] Comment on above: Performed By: #### 2 792405, 4044787, 5290621, 80455244, 64004285, 2012474 ####[facility] [address] [place] [address] CO2 [Moles/Vol] 24 mmol/L Normal 21-31 [facility] Comment on above: Performed By: #### 2 326369, 8506105, 3873086, 48766669, 66964855, 2691690 ####[facility] [address] [place] [address] Glucose [Mass/Vol] 104 mg/dL Normal 55-199 [facility] Comment on above: Result Comment: If t his glucose result represents a fasting glucose, interpretation should refer to the following reference range: 55-99 mg/dL Performed By: #### 2 593192, 9127683, 9610161, 42088845, 92448443, 5332492 ####[facility] [address] [place] [address] Potassium [Moles/Vol] 3.6 mmol/L Normal 3.5-5.3 [facility] Comment on above: Performed By: #### 2 974894, 1251598, 9546760, 10273959, 06175110, 1801519 ####[facility] [address] [place] [address] Sodium [Moles/Vol] 134 mmol/L Low 135-145 [facility] Comment on above: Performed By: #### 2 493974, 3034328, 6474109, 34607431, 21338126, 1716851 ####[facility] [address] [place] [address] CBC w/ Auto Diffon 3 Erythrocyte distribution width (RBC) [Ratio] 15.8 % High 10.9-14.2 [facility] Comment on above: Performed By: #### 2 495277, 1871053, 3844490, 65411338, 79627843, 9390197 ####[facility] [address] [place] [address] Hematocrit (Bld) [Volume fraction] 31.7 % Low 34.0-46.0 [facility] Comment on above: Performed By: #### 2 333845, 7600460, 5776121, 99069639, 21865943, 5341489 ####[facility] [address] [place] [address] Hemoglobin (Bld) [Mass/Vol] 9.8 g/dL Low 12.0-16.0 [facility] Comment on above: Performed By: #### 2 484674, 3136669, 6187780, 54094045, 29081914, 3255622 ####[facility] [address] [place] [address] MCH (RBC) [Entitic mass] 22.8 pg Low 27.0-34.0 [facility] Comment on above: Performed By: #### 2 455217, 6580409, 8681535, 97279989, 80471985, 5270808 ####[address] MCHC (RBC) [Mass/Vol] 30.9 g/dL Low 31.4-36.0 [facility] Comment on above: Performed By: #### 2 314552, 3260620, 7318363, 42745483, 50785760, 5989027 ####[address] [address] MCV (RBC) [Entitic vol] 73.9 fL Low 80.0-100.0 [facility] Comment on above: Performed By: #### 2 683343, 6901427, 9946866, 55397726, 43753090, 4846594 ####[address] [address] Platelet mean volume (Bld) [Entitic vol] 7.0 fL Normal 6.4-10.8 [facility] Comment on above: Performed By: #### 2 046167, 4882500, 5345693, 31196546, 63382930, 5157200 ####[address] [address] Platelets (Bld) [#/Vol] 471.0 E9/L Normal 150.0-500.0 [facility] Comment on above: Performed By: #### 2 998271, 2868834, 5264561, 21801239, 96447349, 3183270 ####[facility] [address] [place] [address] RBC (Bld) [#/Vol] 4.3 E12/L Normal 4.3-5.9 [facility] Comment on above: Performed By: #### 2 019630, 4601918, 4672717, 84582604, 93969850, 8899502 ####[facility] [address] [place] [address] WBC corrected for nucl RBC Auto (Bld) [#/Vol] 7.6 E9/L Normal 4.0-11.0 [facility] Comment on above: Performed By: #### 2 718355, 0827746, 5822498, 50416107, 00165221, 2091974 ####[facility] [address] [place] [address] CHEMISTRYOrdered By: SYSTEM SYSTEM on 01-31-2023 Albumin [...] rate/Area] mL/min/1.73 m2 Normal >=59mL/min/1 .73 m2 [facility] Chem S GFR/1.73 sq M.predicted among non-blacks MDRD (S/P/Bld) [Vol rate/Area] mL/min/1.73 m2 Normal >=59mL/min/1 .73 m2 [facility] Chem S Globulin (S) [Mass/Vol] 3.6 g/dL Normal 1.4 - 4.0 gm/dL [facility] Remisol Glucose [Mass/Vol] 104 mg/dL Normal 55 - 199 mg/dL [facility] Remisol Potassium [Moles/Vol] 3.6 mmol/L Normal 3.5 [...] 370 Contrast amount in ml's: 58 Normal [facility] Consent for Treatmenton Consent for Treatment [id number] D:127 Normal [facility] Discharge Instructionson Discharge Instructions [id number]#[id number] CD:127 Normal [facility] ED Clinical Summaryon 2022 ED Clinical Summary (Inserted Image. Poly ble to display) [address] [address] ED Clinical Summary Person Information Name: DRISS COPE/NewJose Age: 27 Years : 1995 Sex: Female Language: Chilean PCP: CRUZ RODRÍGUEZ MD Marital Status: Single [...] 01/31/2023 19:20:33 01/31/2023 19:20:33 01/31/2023 19:20:33 ADDRESS: [address] [place] [id number] PHYS DOC NOTES: MEDICAL INFORMATION: Prescriptions Given: [...] With: Address: When: CRUZ RODRÍGUEZ [address] [place] [address] Business (1) In 3 days DIAGNOSIS: Flank pain; Headache Normal [facility] ED Note-Physicianon 02-01-20 ED Note-Physician Basic Information [...] [] Discussed with: Patient discussed with patient MANAGER OF RECRUITING, Dr Meza. Patient ARCHAEOLOGY PROFESSOR was unconcerned with patient presentation as described [...] overall. Concerns for preeclampsia discussed with patient ARCHAEOLOGY PROFESSOR, who stated the patient blood pressure may still be elevated due to preeclampsia, was not concerned overall. Patient most likely with a musculoskeletal injury versus viral illness. Patient tachycardia and hypertension resolved over the course of patient's stay in the ED. Return precautions discussed with patient. Patient discharged home for outpatient follow-up with ARCHAEOLOGY PROFESSOR. Shared decision making: [] Code status: [] [...] period CRUZ RODRÍGUEZ In 3 days [address] [place] [address] Business (1) Additional Instructions: Patient Education Flank Pain, Adult Attestation Patient seen and evaluated by the physician assistant front desk manager. Attending physician was present in the emergency department and supervised care. This (more content not included)... Normal [facility] Comment on above: Result Comment: Elec tronically Signed By: Mayur Mabry PA-C\.br\Date and Time Signed: 01/31/23 19:22 EST\.br\Electronically Co-Signed By: Edin Bermudez M.D.\.br\Date [...] by your health care provider. ? Take tppc-tee-czrrdee and prescription medicines only as told by [...] 01/03/2007 Document Revised: 10/25/2018 Document Reviewed: 01/25/2018 g2One Patient Education ? 2019 [employer]. Normal [facility] ED Patient Summaryon 023 ED Patient Summary (Inserted Image. Poly ble to display) [id number] Patient Discharge Instructions Person Information Name: DRISS COPE Age: 27 Years Arrival Date: 01/31/2023 13:41:52 Discharge Diagnosis: Flank pain; Headache Primary Care Physician: CRUZ RODRÍGUEZ MD Provider Information Primary Provider: Edin Bermudez M.D. Advanced End Touching Machine Operator:Mayur Mabry PA-C The exam and treatment you received in the Emergency Department were for an urgent problem and are not intended as complete care. It is important that you follow up with a doctor, nurse practitioner, or physician?s assistant front desk manager for ongoing care. If your symptoms become worse or you do not improve as expected and you are unable to reach your usual health care provider, you should return to the Emergency Department. We are available 24 hours a day. DRISS COPE has been given the following list of patient education materials, prescriptions and follow-up instructions: Follow-up Instructions: With: Address: When: Cruz Foleypearl In 3 days 02/03/2023 Comments: Follow-up for evaluation of hypertension in context of known preeclampsia in the period With: Address: When: CRUZ RODRÍGUEZ [address] [place] [address] Business (1) In 3 days In the event that this physician does not participate in your insurance network, please consult with your insurance company to find a nearby participating provider. Patient Education Materials: Flank Pain, Adult A MESSAGE TO ALL PATIENTS REGARDING OPIOIDS PRESCRIPTION OPIOIDS: WHAT YOU NEED TO KNOW Prescription opioids can be used to help relieve qvesjucl-mn-yirlyq pain and are often prescribed following a [...] may be (more content not included)... Normal [facility] HEMATOLOGYOrdered By: Rufus Jenkins on 01-31-2023 Anisocytosis Ql (Bld) Present (01/31/23 2:10 PM) Normal [facility] HemeManSS Erythrocyte distribution width (RBC) [Ratio] 15.8 % High 10.9 - 14.2 % [facility] HemeAutoSS Hematocrit (Bld) [Volume fraction] 31.7 % Low 34.0 - 46.0 % [facility] HemeAutoSS Hemoglobin (Bld) [Mass/Vol] 9.8 g/dL Low 12.0 - 16.0 gm/dL [facility] HemeAutoSS Hypochromia Auto Ql (Bld) Present (01/31/23 2:10 PM) Normal [facility] HemeManSS MCH (RBC) [Entitic mass] 22.8 pg Low 27.0 - 34.0 pg [facility] HemeAutoSS MCHC (RBC) [Mass/Vol] 30.9 g/dL Low 31.4 - 36.0 gm/dL FT HemeAutoSS MCV (RBC) [Entitic vol] 73.9 fL Low 80.0 - 100.0 fL [facility] HemeAutoSS Morphology Blair (Bld) [Interp] See Morphology (01/31/23 2:10 PM) Normal [facility] HemeManSS Platelet mean volume (Bld) [Entitic vol] 7.0 fL Normal 6.4 - 10.8 fL [facility] HemeAutoSS Platelets (Bld) [#/Vol] 471.0 E9/L Normal 150.0 - 500.0 E9/L [facility] HemeAutoSS RBC (Bld) [#/Vol] 4.3 E12/L Normal 4.3 - 5.9 E12/L [facility] HemeAutoSS WBC corrected for nucl RBC Auto (Bld) [#/Vol] 7.6 E9/L Normal 4.0 - 11.0 E9/L [facility] HemeAuto[facility] HEMATOLOGYOrdered By: SYSTEM SYSTEM on 01-31-2023 Basophils/100 WBC (Bld) 0.7 % Normal 0.0 - 2.0 % FT HemeAutoSS Basophils/Leukocytes Auto (Bld) [Pure # fraction] 0.1 E9/L Normal 0.0 - 0.2 E9/L FT HemeAutoSS Eosinophils/100 WBC (Bld) 1.1 % Normal 0.0 - 8.0 % FT HemeAutoSS Eosinophils/Leukocyte s Auto (Bld) [Pure # fraction] 0.1 E9/L Normal 0.0 - 0.5 E9/L FT HemeAutoSS Lymphocytes/100 WBC (Bld) 31.7 % Normal 14.0 - 50.0 % FT HemeAutoSS Lymphocytes/Leukocyte s Auto (Bld) [Pure # fraction] 2.4 E9/L Normal 1.0 - 4.0 E9/L [facility] HemeAutoSS Monocytes/100 WBC (Bld) 9.1 % Normal 4.0 - 14.0 % FT HemeAutoSS Monocytes/Leukocytes Auto (Bld) [Pure # fraction] 0.7 E9/L Normal 0.2 - 1.0 E9/L [facility] HemeAutoSS Neutrophils/100 WBC (Bld) 57.4 % Normal 36.0 - 75.0 % FT HemeAutoSS Neutrophils/Leukocyte s Auto (Bld) [Pure # fraction] 4.3 E9/L Normal 2.0 - 7.5 E9/L [facility] HemeAutoSS Hep Func Panelon 01-31-2023 Bilirubin.indirect [Mass or moles/Vol] UTC Abnormal 0.1-0.9 [facility] Comment on above: Result Comment: Resu lt verified by Discern Rule. Performed result UT (Unable to Calculate) was sent as an Alpha code due the inability to calculate a valid numeric value. Performed By: #### 2 573713, 0613578, 9766878, 91976644, 52920679, 6675794 ####[address] [place] [address] Albumin [Mass/Vol] 4.3 g/dL Normal 3.3-5.0 [facility] Comment on above: Performed By: #### 2 424039, 9555539, 1659055, 69596445, 20153126, 8260089 ####[facility] [address] [place] [address] Albumin/Globulin (S) [Mass conc ratio] 1.2 Normal 1.1-2.2 [facility] Comment on above: Performed By: #### 2 939703, 7627594, 0727692, 63422339, 53707188, 4286447 ####[facility] [address] [place] [address] ALP [Catalytic activity/Vol] 106 Int._Unit/L High 21-98 [facility] Comment on above: Performed By: #### 2 250526, 7318006, 1650331, 95201410, 11684493, 8926305 ####[facility] [address] [place] [address] ALT No additional P-5'-P [Catalytic activity/Vol] 46 Int._Unit/L Normal 6-46 [facility] Comment on above: Performed By: #### 2 989429, 6668207, 6547591, 41199760, 82840651, 2824564 ####[facility] [address] [place] [address] AST [Catalytic activity/Vol] 37 Int._Unit/L Normal 5-43 [facility] Comment on above: Performed By: #### 2 089217, 6720673, 8742045, 08492824, 16260226, 5965291 ####[facility] [address] [place] [address] Bilirubin [Mass/Vol] 1.2 mg/dL High 0.0-1.1 [facility] Comment on above: Performed By: #### 2 097758, 8192713, 8076576, 99701895, 77608401, 3315291 ####[facility] [address] [place] [address] Bilirubin.direct [Mass/Vol] mg/dL Normal 0.1-0.4 [facility] Comment on above: Performed By: #### 2 969805, 9646598, 9969693, 16389131, 57801154, 6786533 ####[facility] [address] [place] [address] Globulin (S) [Mass/Vol] 3.6 g/dL Normal 1.4-4.0 [facility] Comment on above: Performed By: #### 2 669688, 5393844, 3860540, 22883570, 71400750, 5390527 ####[facility] [address] [place] [address] Protein [Mass/Vol] 7.9 g/dL High 6.0-7.8 [facility] Comment on above: Performed By: #### 2 108023, 5827961, 7425146, 35803955, 62833969, 1276922 ####[facility] [address] [place] [address] Morphon 01-31-2023 Anisocytosis Ql (Bld) Present Normal [facility] Comment on above: Order Comment: Order Added by Discern Expert. Performed By: #### 2 720598, 0174084, 8512499, 74378699, 80677010, 0270259 ####[facility] [address] [place] [address] Hypochromia Auto Ql (Bld) Present Normal [facility] Comment on above: Order Comment: Order Added by Discern Expert. Performed By: #### 2 589642, 8307716, 7710943, 11460022, 86590713, 2170752 ####[address] [place] [address] Morphology Blair (Bld) [Interp] See Morphology Normal [facility] Comment on above: Order Comment: Order Added by Discern Expert. Performed By: #### 2 452541, 1859610, 4549058, 68897919, 67639258, 7617227 ####[address] [address] SEROLOGYOrdered By: Eleonora Newton on 01-31-2023 HCG.beta subunit (U) [Moles/Vol] Negative Normal [facility] Man Sero U BetaHcg Qualon 01-31-2023 HCG.beta subunit (U) [Moles/Vol] Negative Normal [facility] Comment on above: Performed By: #### 1 3253430, 89753138 ####[address] [address] UA With Cult Reflexon 2022 Bilirubin Ql (U) Negative Normal Negative [facility] Comment on above: Performed By: #### 1 2151873, 97833069 ####[address] [address] Clarity (U) CLEAR Normal Clear [facility] Comment on above: Performed By: #### 1 0675779, 98168485 ####[address] [address] Color (U) YELLOW Normal Yellow [facility] Comment on above: Performed By: #### 1 8562112, 87467994 ####[address] [address] Epithelial cells.squamous LM.HPF (Urine sed) [#/Area] 3-4 Normal 0-2 [facility] Comment on above: Performed By: #### 1 6025532, 67762423 ####[facility] [address] [place] [address] Glucose Test strip (U) [Mass/Vol] Negative Normal Negative [facility] Comment on above: Performed By: #### 1 5369961, 92722748 ####[address] [address] Hemoglobin Ql (U) Negative Normal Negative [facility] Comment on above: Performed By: #### 1 4539027, 79533977 ####[address] [address] Ketones (U) [Mass/Vol] Negative Normal Negative [facility] Comment on above: Performed By: #### 1 6448013, 06697343 ####[address] [address] [place].plasma/Lithiu m.RBC (Bld) [Mass ratio] 0-3 Normal 0-3 [facility] Comment on above: Performed By: #### 1 5037588, 87419840 ####[address] [address] Nitrite Ql (U) Negative Normal Negative [facility] Comment on above: Performed By: #### 1 1439992, 68004528 ####[address] [address] pH (U) 6.0 [pH] Invalid Interpretation Code 5.0-9.0 [facility] Comment on above: Performed By: #### 1 7631314, 60432487 ####[address] [address] Protein (U) [Mass/Vol] Negative Normal Negative [facility] Comment on above: Performed By: #### 1 4322491, 29784799 ####[address] [address] Specific gravity (U) [Rel density] 1.010 Invalid Interpretation Code 1.005-1.030 [facility] Comment on above: Performed By: #### 1 3382987, 58284982 ####[place] [address] Type of Urine collection method Clean Catch Normal [facility] Comment on above: Performed By: #### 1 9601341, 42949544 ####[place] [address] Urobilinogen Qn (U) 0.2 {Aspen'U}/dL Normal 0.0-1.0 [facility] Comment on above: Performed By: #### 1 0517612, 08616401 ####[place] [address] WBC Auto Ql (U) Negative Normal Negative [facility] Comment on above: Performed By: #### 1 6962101, 84513081 ####[place] [address] WBC LM.HPF (Urine sed) [#/Area] 0-5 Normal 0-5 [facility] Comment on above: Performed By: #### 1 7685522, 37921174 ####[place] [address] URINALYSISOrdered By: Solomon flores on 01-31-2023 Bilirubin [...] [Mass/Vol] Negative (01/31/23 1:57 PM) Normal Negative [facility] UA Auto SS [place].plasma/Lithiu m.RBC (Bld) [Mass ratio] 0-3 /HPF Normal 0-3/HPF [facility] UA Auto SS Nitrite Ql (U) Negative (01/31/23 1:57 PM) Normal Negative [facility] UA Auto SS pH (U) 6.0 *NA* (01/31/23 1:57 PM) Invalid Interpretation Code 5.0 - 9.0 FT UA Auto SS Protein (U) [Mass/Vol] Negative (01/31/23 1:57 PM) Normal Negative [facility] UA Auto SS Specific gravity (U) [Rel density] 1.010 *NA* (01/31/23 1:57 PM) Invalid Interpretation Code 1.005 - 1.030 FT UA Auto SS UA Spec Desc Clean Catch (01/31/23 1:57 PM) Normal [facility] UA Auto SS Urobilinogen Qn (U) 0.8043551 {Aspen'U}/dL Normal 0.0 - 1.0 EU/dL [facility] UA Auto SS WBC Auto Ql (U) Negative (01/31/23 1:57 PM) Normal Negative [facility] UA Auto SS WBC LM.HPF (Urine sed) [#/Area] 0-5 /HPF Normal 0-5/HPF [facility] UA Auto SS eGFRon 01-31-2023 GFR/1.73 sq M.predicted among blacks MDRD (S/P/Bld) [Vol rate/Area] mL/min/{1.73_m2} Normal >=59 [facility] Comment on above: Order Comment: Order added by Discern Expert. Result Comment: eGFR is race adjusted. AA=. Performed By: #### 2 666740, 1547071, 8219168, 57121855, 95268871, 7272109 ####[facility] [address] [place] [address] GFR/1.73 sq M.predicted among non-blacks MDRD (S/P/Bld) [Vol rate/Area] mL/min/{1.73_m2} Normal >=59 [facility] Comment on above: Order Comment: Order added by Discern Expert. Result Comment: Pillowcase Folder jose kidney disease could be indicated at eGFR's of less than 60 mL/min/1.73m2. Kidney failure is indicated at less than 15 mL/min/1.73m2. Performed By: #### 2 494463, 9712405, 0098537, 63230276, 13352795, 2322145 ####[facility] [address] [place] [address] IntraOperative Documentson 0 01-08-2023 IntraOperative Documents [id number] CD:127 Normal [facility] Coding Summary.on 01-02-2023 Coding Summary. CD:[id number]:[id number] Gh0 bWw+PGhlYWQ+EE0FUNXsY43 mcVUxzK6KZ8sYPP3GKBMPFC FIMU2YOM1eyEE4UXzeT8Jli iAv SfswfDQeLS59YBn5DLG1dRg nDKpmxF9mfHZrW6p9LrJcBS 56kL43ETvjADDfLxO0OwRii jsgbWFy Q0gqKqXteBNbYao+PHRhYmx lIHdpZHRoPScxMDAlJyBzdH odTJ1pFp2yVMBjJRIzoHcby HNlOiBj w6qhRJSgKBmmSX1xuBumV8L tfFM2FOGba5e9Dg84pCT+PH FhBHD4iPsxWSugi159CjAmm 1daOQR4 aGUwMYobPEN7W88jp3P3VIM zNXYmOXZ3kTH6tZ7bzUoaaz udZ0RizQVbXaU1BRD4zFImh Q8uoDhh cvgmiO1gRsq+V06CIW0ZWJQ MHA2CKwv6N5TeOcgojJK+PC 53KHVeDP54xZHxqPJrq1kyc Vd3NkGq ZATrCDD8gKfaSKwjg8FkHZY sA41geQKab5H2EZUsoRqfvF FsXiTkhIB1dW9sDGoenkoer 2hvdzsn Naoab8nwip46eG74S81fKFe nSFUgTVY0SOWnTHXbwNsjgo 6svG4kEa5+NZtkt2vvf1xsd Fp8LbQz GDPtgfRezBinOSN4l1ZkTr1 2Z7JxmRhtg7UzXyf1fg40eI Nbj4W4hBZ5BIqwLAYreS7sG WxlZnQ6 LXUrYnQqiT94hCQvUJwqEz1 cvSpihZhwKB3lTTRkqtewML SjzQ9tWZXjpCLucJvuKO5sM TBpbjtm e295CyCoYKD7DOSwnMIkY6F ueD9lUaCsKQHoMAMkF4NmdN FhWOgrP996YUmyIgN8GRUzk xMfG9Ex DIIwnThmUzR7n0L5Qo6Pq1F robbfCUL2WPygVISfBtS1Yt WyCyK7Q1RnKnh4AUXgqHqnG R1wT4Bg XRNccyvncbcwfQL3ONEnCBA oyL02kZAyHYmdMk7em1S2h2 49OXRcLXTpzT90Fo5ohYcgU TBwdCBU yR2snxpyn2zfdpcsUfHdAKB wFHx5OXn3RNPdvHhrIxUiWY L0RpB7MRJ6sBXogC0hvFasx fhexR1a Oyc+S25zkK8nNUX2QXK0xbo mMRFooeGnDO67NP87Z2IsGi wvdGFibGU+PGRpdiBzdHlsZ R9qKaSp u0gwv9GdNVhrP3PtQKJrCUq kPho0IQSvYMD1zPY6zE9dRU UuKBuex6B0oBP6V4XdaqAdj s1ch5mb BQNjGJqnV15waMZwp0P0JXH xoUA9BLTcoBlyXdRnnR29Nj c+ZYKtgUxco4CwReztd1bmj 3ipcGn4 HuFsPCIxgfIhhXnsHPD2w3E gGw14B55eKPdtBVLdXQFdCA YnOTYenIkebc5sfD1xFt2+P GNvbCB3 iUW8zX7jFWEzItH5CWjyJ56 0YfQooWZjCemlx9rax0sipF m1SfCuEZUwulIdePjjHNF3t 7SfXr44 E55mRByjRFRgSKWaFNPiPGB qyIteiy3ujQ8oFy3+PC9jb2 vdvi34rH77rRZ+TFEgHYO1k WxlPSdw TQOuaL5fYYjaTbK3XLDwPhB ttA43hWPuCYhwAz4huVyxzD tlKO8hFNNvqashp334GtOzd 2xkIDEw mBMqNOptQKU8B42nt8H5ISM rELFmXXJ3bMB0oJ0reCvous ogbGVmdDsgdmVydGljYWwtY GvyY317 IHRvcDsnPlBhdGllbnQgTmF lLJq6W6VeAuw0HWXryLliRJ 1ryBUkOXhbEb2ecPdocQocE D5pIOPd ipknq416AzNbt9jzSGIwjGW rSLkeTHR5H71bq9I3YHTaFV HwDBO8iIG1sG1jpPwptneas GVmdDsg ovZoyBelHEnnBHafC413QVE ycXepPiCqpzBmWMPpqDZ2KE 30RC82xFPik8J0qNG1R6ZjI GRpbmct yhmhrZK1CCBsSVFfkB49Bb1 msAqgHw0yQTHpEIF8KXFuqH YxU8CuoZ3jVkGcLCVkIORqA 3RleHQt ESkhG536HZqnGyX0FJMfdkE uQ6HuTUTiuNcoNbW7f2A8Ph 9EC3D4FS11RM92bQTrd7F7o KT8E9Tk UKHxdxkvtukitBV9EPWbEDZ mbQ61Ut6nkGkpLb3uWRGsIB A2OEYmoMZrK2UvuY5sQvIkP DAwMDAw Y0YofVAqAIadT225JNszEtF 3SAUwroWaF1LpFCInfNfdId K7z5E9Ux9ZOWl7ZU17VG62a NEsy4L3 pKI4Y6AdZCYtuwwsmqjooKW 5BRJmJGHvmV39Vc7dlUnoWn 4jAKOsXIL5NNRquJPoG2Znz K8jStMq BMDkZOEuM9OjhAJzGPthB14 4ZXtuAiK5MPBrvcIeD9SiCX EbnMfkZkD9n5I5Mx5BJUSdU Y63NWC1 eVC5CK74TV31D1ZzFlobwWD ibGU+PHRhYmxlIHdpZHRoPS qzTWMgHvBskMmySS2sGg1hH GVyLWNv yUnkfDMpZpKhb2qcCJOpSRm cQQ9ycRekA6HxmFH4DKSlo7 s7Ub41Y87nM4NdqCN+PGNvb YP2eBF1 cE9aTpWjFzC0XQuhK716EyG wpYLcLinli9pou9ftdBb5Pl T2GCChsdPgoBhpEQI1z7VzX e48X49k IHdpZHRoPSIxNSUiIHZhbGl nli4yuZ3mWv9+NZXuhZH7sO B5pY3yJiCfIwU6YBauI834Z nRvcCIv Xnymi9bvv9kheTd7YcQyJUR csjZgyEkeMIT6y3BdVc49X4 HfsEucg2UyDgc2si74oBFdf 7C5oWY6 R3GuWYZmopussMMdlWqwHA8 oDXJhtajaTDParE1cKJQhN0 n7ZbMfBsR9MNswP7XuafN9A DEwcHQg UCoaUPS1S30bf6F1ANJyYZE qWMG6vIO8pD4gnRydgencdA VmdDsgdmVydGljYWwtYWxpZ 246IHRv wWqkWGAzrR8bZURyqQCxhXk hAL5uEIRqjbmhBbMJHbYBWV ehWQAAWQxATaTJMI41WK99u EOwe4E4 qHT5V6OxLTQlcpmsmoswbJT 9NUDlYNVdtO73sAAvQZhbAk 4yj0J7i343BMSgOGUoiA34I s8ezYkb IXFqtIXFpC0ypvnxy0ztkcn zFhPjRKBmOPe9FQj8ACFpeP mwSrMzGIL3UdQ9IMV5oWYvm J0ffNhp gnuvyJ9xDan+MDQvMDgvMTk 5NTwvdGQ+SYRuEWV3uApgHS vbHVXiqP8iMVWmG5v8VdHqF tA8ICxi M8FsFHCzhttwKw45cF3yJeO yRlU0ELyyM1AktqR5CJLzpW MqEActYNV5C73zp9I9ZHSnQ DAwMDA7 uMU1lR8brKwlrjnorNWrdJw mkgEffGeqPBjhZHmiO978ZH WruHzyFeI8INpkITRvHZ49G Y38lKEu g2P0hZI9Q0TjFNKyiujyuky nqLX9GPCkTGJigG41cXXvZW kgJh8vm0I1u715RKXoQJEdw V36Cl9v lMvxQGGjtKDEaO8ganbyo2a hmznjGuXsBZIsPWw7MFw2KF LfmWkfLcQxVYC3GpB8QUW7k NZwvE3r lWqpmjrdoA6kZcb+RmVtYWx lQS45WI16eMIlw3B8eGH8P0 BiCKKeaexxufcraAO4JIMbW DUwaW47 zPKjJAlfGn5es2J4j763RDT mYGPneI56Eu0szRkqXLXhzK RKfE7fulbzv9knwxnhUcOmB DAwMDt0 GRs9LOLheVliShYfASD8KwS 4TWG7cKCmmO6ycXalrfxziV 9wOyc+V1I5jHV4hQWfcJpjm GQ+PC90 ac21F8ZoQyhbLmr1DVQeJHK 0vGC3oS1fCNMtFTvhu2E1mQ M3A7ZpktBqee9xj8tdGFQgX VdrY68d pVJxq5P5POFobNU5AMUopDf kRxHjbC53Ktg+PGNvbGdyb3 KfJabpm7ejv2bbkPe0PhSdQ SIgdmFs iYezXRK6b9FpVu53E73sQSx pZHRoPSIzMCUiIHZhbGlnbj 1qlD0aMs1+XCBhnBY0eGN8k F5iZqVm EoI2RWirQ012KbZvqJGkQga oi2rin5uygOw5IqIzLPOqrh WkxUhzOGI2t9GuSb99I7Lli Rrnf5Eg Ejl5mm35fCHek6U7iJG1S2P xIKHmpczxhZDhkNwnSW9nXT BeqbazAYHcfP8uIKDjT3s5K iAwLjA1 RAhgJ0AnthN3LIAkgRKdIMG hsHTGpR4cyubbu0zktjhrJf OtBYMkPFa4WSs4BSZlvZqhP iBsZWZ0 AtD6RCJ4pAPbvP5ouWgrenc vhE9uWnh+IIk3n3cppVZhFF 5viUO4OL83GY80xARjr0G0j GR2B0Jk IIJdzdmwseyimEV8UCFdSMV mbC89Wh7vjWbmPp9uVQXgLY J2SCXgyGZeR5ItyB8uJrZeG DAwMDAw O0BduQRbSZqlR317HIkjDhV 9ALIbboClE9TgYUXhtKkhBx T1d8N5Pn1TMP58CF73VB48x AUpt3G5 bZT9R4BiSAIruhnqjwwhmRH 1EEFhQVRvbY66Zs9ceQeqXv 8lSBSkNZL7ZDNokHQlZ1Hvj H5rJuQv XUUeVDCtM6ZqxFVmSNobX57 2DPfcClI6URZklnNaY3KiKL WilZiaSmV9f0U5Cn9KLw58Z H55ZD02 jJDcz3H4eXF5V2RvRWTkngz xxgdtrRH2AKTiVLYmiQ97Re 0gbWdiUs0rXLWvMHQ6JULmw CJrE8Sp dN3kZfUwQLMyXBWnL4HapLI tBCpcQ897IEluBgU7MFBwnp IuS6UpVFJzsAflJdE1l0C2A p6OMFiz ifo8R1YiIilbfJS+ZD90YOW kKQ43aCSsqEUvl8nchEh1Zn HjMVBvDZF9cZrgCCyaz7ScS RFiK86m bGFw (more content not included)... Normal [facility] Main OR Intraoperative Recor don 01-02-2023 Main OR Intraoperative Record IntraOp Document Type FT Summary Primary Physician: Nathan POP DO Finalized Date/Time: 01/02/23 14:06:20 Pt. Name: DRISS COPE D.O.B./Sex: 1995 Female Med Rec #: [id number] Physician: Edin Bermudez M.D. Financial #: [id number] Pt. Type: O Room/Bed: / Admit/Disch: 12/30/22 [...] Attendee Vamsi BLACKWELL, Nathan Morris DO, RN, Darryl Mcgovern Role Performed Anesthesiologist of Surgeon - Primary Surveillance Systems Engineer - Primary Record Time In 12/30/22 12:21:00 12/30/22 12:21:00 12/30/22 12:21:00 Time Out 12/30/22 13:04:00 12/30/22 13:04:00 12/30/22 13:04:00 Procedure DILATATION and SUCTION DILATATION and SUCTION DILATATION and SUCTION CURETTAGE CURETTAGE CURETTAGE Comments Preceptor and room assist Last Modified By: Diego RN, Danny Cortez RN, Danny Vidal RN 12/30/22 13:47:48 12/30/22 13:47:48 12/30/22 13:47:48 Entry 4 Entry 5 Case Attendee Diego LANDRUM, Danny Hampton CST, Yahaira Perkins Role Performed Surveillance Systems Engineer - Primary Scrub - Primary Time In 12/30/22 12:21:00 12/30/22 12:21:00 Time Out 12/30/22 13:04:00 12/30/22 13:04:00 Procedure DILATATION and SUCTION DILATATION and SUCTION CURETTAGE CURETTAGE Comments Orientation Last Modified By: Diego RN, Danny Vidal RN 12/30/22 13:47:48 12/30/22 13:47:48 Perioperative Protocols FT [...] Given Participants Nathan POP DO, Krupp RN, Darryl Mcgovern, Diego LANDRUM, Memo Guzman CST, Yahaira Perkins Time Out Complete 12/30/22 [...] and tissue Entry 1 Skin Integrity Intact, [place], Warm, and Skin Abnormality No Dry Outcomes Met? Yes Last Modified By: Danny oCrtez RN 12/30/22 13:14:59 Post-Care Text: The patient is free from signs and symptoms of injury caused by extraneous objects Patient Positioning FT Pre-Care Text: Identifies physical alterations that require additional precautions for procedure-specific positioning, verifies presence of prost (more content not included)... Normal [facility] Consent for Anesthesiaon Consent for Anesthesia [id number]#1.00C D:127 Normal [facility] Consent for Procedure/Surger yon 01-01-2023 Consent for Procedure/Surgery [id number]#1.00C D:127 Normal [facility] Discharge Instructionson Discharge Instructions [id number]#1.00C D:127 Normal [facility] IntraOperative Documentson 0 01-01-2023 IntraOperative Documents [id number]#1.00C D:127 Normal [facility] IntraOperative Documents [id number]#1.00C D:127 Normal [facility] IntraOperative Documents [id number]#1.00C D:127 Normal [facility] Prescriptions/Work Noteson 0 01-01-2023 Prescriptions/Work Notes [id number]#1.00C D:127 Normal [facility] ABO/Rhon 12-30-2022 ABO/Rh Positive Invalid Interpretation Code [facility] Comment on above: Performed By: #### 1 [id number] #### [facility] Laboratory [address] [place] [address] ABO/Rh History Checkon 12-30 ABO/Rh History Check Patient discharged prior Normal [facility] Comment on above: Performed By: #### 1 [id number] #### [facility] [address] [place] [address] ABSCon 12-30-2022 ABSC Gel Interp Negative Normal [facility] Comment on above: Performed By: #### 1 [id number] #### [facility] [address] [place] [address] Auto Diffon 12-30-2022 Basophils/100 WBC (Bld) 1.2 % Normal 0.0-2.0 [facility] Comment on above: Order Comment: Order Added by Discern Expert. Performed By: #### 1 [id number] #### [facility] [address] [place] [address] Basophils/Leukocytes Auto (Bld) [Pure # fraction] 0.1 E9/L Normal 0.0-0.2 [facility] Comment on above: Order Comment: Order Added by Discern Expert. Performed By: #### 1 [id number] #### [facility] [address] [place] [address] Eosinophils/100 WBC (Bld) 4.1 % Normal 0.0-8.0 [facility] Comment on above: Order Comment: Order Added by Discern Expert. Performed By: #### 1 [id number] #### [facility] [address] [place] [address] Eosinophils/Leukocyte s Auto (Bld) [Pure # fraction] 0.2 E9/L Normal 0.0-0.5 [facility] Comment on above: Order Comment: Order Added by Discern Expert. Performed By: #### 1 [id number] #### [facility] [address] [place] [address] Lymphocytes/100 WBC (Bld) 40.5 % Normal 14.0-50.0 [facility] Comment on above: Order Comment: Order Added by Discern Expert. Performed By: #### 1 [id number] #### [facility] [address] [place] [address] Lymphocytes/Leukocyte s Auto (Bld) [Pure # fraction] 2.3 E9/L Normal 1.0-4.0 [facility] Comment on above: Order Comment: Order Added by Discern Expert. Performed By: #### 1 [id number] #### [facility] [address] [place] [address] Monocytes/100 WBC (Bld) 7.6 % Normal 4.0-14.0 [facility] Comment on above: Order Comment: Order Added by Discern Expert. Performed By: #### 1 [id number] #### [facility] [address] [place] [address] Monocytes/Leukocytes Auto (Bld) [Pure # fraction] 0.4 E9/L Normal 0.2-1.0 [facility] Comment on above: Order Comment: Order Added by Discern Expert. Performed By: #### 1 [id number] #### [facility] [address] [place] [address] Neutrophils/100 WBC (Bld) 46.6 % Normal 36.0-75.0 [facility] Comment on above: Order Comment: Order Added by Discern Expert. Performed By: #### 1 [id number] #### [facility] [address] [place] [address] Neutrophils/Leukocyte s Auto (Bld) [Pure # fraction] 2.6 E9/L Normal 2.0-7.5 [facility] Comment on above: Order Comment: Order Added by Discern Expert. Performed By: #### 1 [id number] #### [facility] [address] [place] [address] BLOOD BANKOrdered By: Teena Quiroz on 12-30-2022 ABO/Rh Interp Positive Invalid Interpretation Code [facility] BB Subsection ABSC Gel Interp Negative (12/30/22 11:28 AM) Normal [facility] BB Subsection BMPon 12-30-2022 Creatinine [Mass/Vol] 0.9 mg/dL Normal 0.5-1.3 [facility] Comment on above: Performed By: #### 1 [id number] #### [facility] [address] [place] [address] Urea nitrogen [Mass/Vol] 17 mg/dL Normal 5-21 [facility] Comment on above: Performed By: #### 1 [id number] #### [facility] [address] [place] [address] Urea nitrogen/Creatinine [Mass ratio] 19 No Units Normal 10-20 [facility] Comment on above: Performed By: #### 1 [id number] #### [facility] [address] [place] [address] Anion gap [Moles/Vol] 12 mmol/L Normal 6-16 [facility] Comment on above: Performed By: #### 1 [id number] #### [facility] [address] [place] [address] Calcium [Mass/Vol] 8.6 mg/dL Low 8.9-11.1 [facility] Comment on above: Performed By: #### 1 [id number] #### [facility] [address] [place] [address] Chloride [Moles/Vol] 103 mmol/L Normal 101-111 [facility] Comment on above: Performed By: #### 1 [id number] #### [facility] [address] [place] [address] CO2 [Moles/Vol] 26 mmol/L Normal 21-31 [facility] Comment on above: Performed By: #### 1 [id number] #### [facility] [address] [place] [address] Glucose [Mass/Vol] 105 mg/dL Normal 55-199 [facility] Comment on above: Result Comment: If t his glucose result represents a fasting glucose, interpretation should refer to the following reference range: 55-99 mg/dL Performed By: #### 1 [id number] #### [facility] [address] [place] [address] Potassium [Moles/Vol] 3.8 mmol/L Normal 3.5-5.3 [facility] Comment on above: Performed By: #### 1 [id number] #### [facility] [address] [place] [address] Sodium [Moles/Vol] 137 mmol/L Normal 135-145 [facility] Comment on above: Performed By: #### 1 [id number] #### [facility] [address] [place] [address] Blood Bank ID#on 12-30-2022 BBID# [id number] Invalid Interpretation Code [facility] Comment on above: Performed By: #### 1 [id number] #### [facility] [address] [place] [address] CBC w/ Auto Diffon 02-04-202 3 Erythrocyte distribution width (RBC) [Ratio] 14.1 % Normal 10.9-14.2 [facility] Comment on above: Performed By: #### 1 [id number], 01423519, 9985663, 9256257, 7264566 ####[facility] [address] [place] [address] Hematocrit (Bld) [Volume fraction] 31.5 % Low 34.0-46.0 [facility] Comment on above: Performed By: #### 1 9666124, 22978368, 5535329, 4616265, 1379198 ####[facility] [address] [place] 8839357 Hemoglobin (Bld) [Mass/Vol] 10.0 g/dL Low 12.0-16.0 [facility] Comment on above: Performed By: #### 1 8962701, 08842856, 6453015, 6783870, 8190430 ####[place] [address]2457 MCH (RBC) [Entitic mass] 25.3 pg Low 27.0-34.0 [facility] Comment on above: Performed By: #### 1 1697952, 52600453, 9825840, 0863333, 4147078 ####[facility] [address] [place] [address] MCHC (RBC) [Mass/Vol] 31.8 g/dL Normal 31.4-36.0 [facility] Comment on above: Performed By: #### 1 8983712, 76737512, 3083670, 4794340, 1961301 ####[facility] [address] [place] [address] MCV (RBC) [Entitic vol] 79.6 fL Low 80.0-100.0 [facility] Comment on above: Performed By: #### 1 2911118, 81703061, 6272499, 5120344, 2283597 ####[place] [address] [place] 8839357 Platelet mean volume (Bld) [Entitic vol] 7.7 fL Normal 6.4-10.8 [facility] Comment on above: Performed By: #### 1 8484405, 29483959, 9548225, 0791515, 9031111 ####[facility] [address] [place] [address] Platelets (Bld) [#/Vol] 264.0 E9/L Normal 150.0-500.0 [facility] Comment on above: Performed By: #### 1 3073324, 27543541, 9825202, 4006806, 2674617 ####[facility] [address] [place] [address] RBC (Bld) [#/Vol] 4.0 E12/L Low 4.3-5.9 [facility] Comment on above: Performed By: #### 1 3868018, 40689601, 1686686, 3202969, 7784353 ####[facility] [address] [place] [address] WBC corrected for nucl RBC Auto (Bld) [#/Vol] 5.7 E9/L Normal 4.0-11.0 [facility] Comment on above: Performed By: #### 1 7509372, 17642368, 7234544, 8755151, 0458817 ####[facility] [address] [place] [address] CHEMISTRYOrdered By: SYSTEM SYSTEM on 12-30-2022 Anion gap [Moles/Vol] 12 mmol/L Normal 6 - 16 mEq/L [facility]isol Calcium [Mass/Vol] 8.6 mg/dL Low 8.9 - 11. 1 mg/dL [facility] Chloride [Moles/Vol] 103 mmol/L Normal 101 - 1 11 mmol/L [facility] CO2 [Moles/Vol] 26 mmol/L Normal 21 - 31 mmol/L [facility] Creatinine [Mass/Vol] 0.9 mg/dL Normal 0.5 - 1.3 mg/dL [facility] GFR/1.73 sq M.predicted among blacks MDRD (S/P/Bld) [Vol rate/Area] mL/min/1.73 m2 Normal >=59mL/min/1 .73 m2 [facility] Chem S GFR/1.73 sq M.predicted among non-blacks MDRD (S/P/Bld) [Vol rate/Area] mL/min/1.73 m2 Normal >=59mL/min/1 .73 m2 [facility] Chem S Glucose [Mass/Vol] 105 mg/dL Normal 55 - 199 mg/dL [facility] Remisol Potassium [Moles/Vol] 3.8 mmol/L Normal 3.5 - 5.3 mmol/L [facility] Remisol Sodium [Moles/Vol] 137 mmol/L Normal 135 - 145 mmol/L [facility] Remisol Urea nitrogen [Mass/Vol] 17 mg/dL Normal 5 - 21 mg/dL [facility] Remisol Urea nitrogen/Creatinine [Mass ratio] 19 mg/mg Normal 10 - 20 [facility] Remisol COAGULATIONOrdered By: Courtney Tang on 12-30-2022 aPTT Coag (PPP) [Time] 31.5 s Normal 25.1 - 36.5 second(s) [facility] Auto Coag INR Coag (PPP) [Relative time] 1.0 {INR} Invalid Interpretation Code [facility] Auto Coag PT Coag (PPP) [Time] 11.7 s Normal 9.4 - 1 2.5 second(s) [facility] Auto Coag Consent for Treatmenton Consent for Treatment [id number]#1.00C D:127 Normal [facility] ED Note-Physicianon 12-30-19 23 ED Note-Physician Basic Information Time Seen: Edin [...] and Complexity of Problems Differential Diagnosis: [] [facility] Data External documents reviewed: [] My EKG [...] In 3 days 01/02/2023 EST [address] [place] [address]- Business (1) Additional Instructions: Problem List/Past Medical [...] Alcohol Use, 11/27/2022 Employment/School Employed, Work/School description: [employer]., 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 Never Smokeless Tob (more content not included)... Normal [facility] Comment on above: Result Comment: Elec tronically Signed By: Edin Bermudez M.D.\Date and Time Signed: 12/30/22 13:18 EST HEMATOLOGYOrdered [...] 5.7 E9/L Normal 4.0 - 11.0 E9/L [facility] HemeAutoSS Inpatient Patient Summaryon 12-30-2022 Inpatient Patient Summary [place] [id number] [facility] Clinical Discharge Instructions PERSON INFORMATION Name: DRISS COPE [facility]YSICIANS Admitting Physician: Edin Bermudez M.D. Attending Physician: Edin Bermudez M.D. PCP: CRUZ RODRÍGUEZ MD Discharge Diagnosis: 1:Retained products of conception with hemorrhage Comment: PATIENT EDUCATION INFORMATION Instructions: CHASSIS WIRER - Post D&C, Hysteroscopy, LEEP or Essure/Laparoscopy (Custom); Post Op Patient Instructions - FT (Custom) (Custom); CHASSIS WIRER - Post D&C, Hysteroscopy, LEEP or Essure/Laparoscopy (Custom) Medication Leaflets: Follow up: With: Address: When: Cruz Meza [address] [place] [address] Business (1) Comments: follow up in 1-2 weeks With: Address: When: CRUZ RODRÍGUEZ [address] [place] [address] Business (1) In 3 days [...] 100 mg Tab) By Mouth Once. Comment: Normal [facility] Main OR PACU I Recordon Main OR PACU I Record PACU Phase I Docum ent Type FT Summary Primary Physician: Nathan POP DO Finalized Date/Time: 12/30/22 13:56:42 Pt. Name: DRISS COPE/Sex: 1995 Female Med Rec #: [id number] Physician: Edin Bermudez M.D. Financial #: [id number] Pt. Type: O Room/Bed: / Admit/Disch: 12/30/22 [...] By: Ligia Bowden RN 12/30/22 13:56 Normal [facility] Main OR PACU II Recordon Main OR PACU II Record PACU Phase II Document Type FT Summary Primary Physician: Nathan POP DO Finalized Date/Time: 12/30/22 15:18:57 Pt. Name: DRISS COPE/Sex: 1995 Female Med Rec #: [id number] Physician: Edin Bermudez M.D. Financial #: [id number] Pt. Type: O Room/Bed: / Admit/Disch: 12/30/22 [...] By: Ligia Bowden RN 12/30/22 15:18 Normal [facility] Main OR Preoperative Recordo n 12-30-2022 Main OR Preoperative Record Holding Area Document Type FT Summary Primary Physician: Nathan POP DO Finalized Date/Time: 12/30/22 14:07:12 Pt. Name: DRISS COPE/Sex: 1995 Female Med Rec #: [id number] Physician: Edin Bermudez M.D. Financial #: [id number] Pt. Type: O Room/Bed: / Admit/Disch: 12/30/22 [...] 13:50 Danny Cortez RN 12/30/22 14:07 Normal [facility] Monitor Recordon 12-30-2022 Monitor Record [id number] CD:127 Normal [facility] Monitor Record [id number]#1.00 CD:127 Normal [facility] Outpatient Surgery Discharge Instructionon 12-30-2022 Outpatient Surgery Discharge Instruction [place] [id number] Patient Discharge Instructions PERSON INFORMATION Name: DRISS [...] THE NEAREST EMERGENCY ROOM OR CALL 911 IANATOLIY ALEXIS M, have received the attached patient education materials/instructions and have verbalized understanding: May we do a follow up call? Yes No I was present when discharge instructions were given Patient Signature Date Clinican/Nurse Signature _ Date Follow up: With: Address: When: Cruz Meza [address] [place] [address] Business (1) Comments: follow up in 1-2 weeks With: Address: When: CRUZ RODRÍGUEZ [address] [place] [address] Business (1) In 3 days 01/02/2023 Pharmacy [...] to serve you. Thank you for choosing [facility] HERE ARE THE MEDICATION CHANGES THAT [...] severe loida (more content not included)... Normal [facility] PT & PTTon 12-30-2022 aPTT Coag (PPP) [Time] 31.5 second(s) Normal 25.1-36.5 [facility] Comment on above: Result Comment: Para meter [...] the same coagulation reagent and instrumentation as [facility]. Currently there are no coagulation studies available worldwide for children to 14 days, and no normal ranges. Heparin therapeutic range (represented by Anti-Factor Xa activity of 0.2 - 0.4 U/mL) corresponds to PTT of 56.6 - 109.0 sec. Performed By: #### 1 [id number] #### [facility] [address] [place] [address] INR Coag (PPP) [Relative time] 1.0 {INR} Invalid Interpretation Code [facility] Comment on above: Result Comment: INR results are specifically intended to assess patients stabilized on long-term Anticoagulation therapy suggested INR?s ?Less Intensive Anticoagulation? 2.0 ? 3.0 Conventional Range 3.0 ? 4.5 Performed By: #### 1 [id number] #### [facility] [address] [place] [address] PT Coag (PPP) [Time] 11.7 second(s) Normal 9.4-12.5 [facility] Comment on above: Result Comment: 15 d [...] the same coagulation reagent and instrumentation as [facility]. Currently there are no coagulation studies available worldwide for children to 14 days, and no normal ranges. Performed By: #### 1 [id number] #### [facility] [address] [place] [address] Patient Education - Texton 0 12-30-2022 Patient [...] cramps. PLEASE CALL FOR ANY PROBLEMS Normal [facility] Progress Note-Physicianon Progress Note-Physician Patient: DRISS COPE Age: 27 years Sex: Female : 1995 Associated Diagnoses: None Author: Art Agustin MD Postoperative Information Postoperative disposition: Postoperative disposition: To PACU. Optimetrix number: Optimetrix number [id number]. Anesthetic utilized: General. Special techniques: Warming device. 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 Normal [facility] Comment on above: Result Comment: Elec tronically Signed By: Vamsi BLACKWELL, Art Barron\.br\Date and Time Signed: 12/30/22 13:12 EST Progress [...] q6hr, # 20 tab(s), Refills(s) 1, Pharmacy: [facility], 161, cm, 03/10/21 11:21:00 EDT, Height/Length Dosing, 56, kg, 03/10/21 11:21:00 EDT, Weight Dosing Pyridium 200 mg Tab: 200 mg = 1 tab(s), Oral, TID, Take one tab by mouth three times a day for three days, # 9 tab(s), Refills(s) 0, Pharmacy: [facility] 858, 157, cm, 03/04/21 7:22:00 EDT, Height/Length Dosing, 52, kg, 03/04/21 7:22:00 EDT, Weight Dosing cyclobenzaprine 10 mg Tab: 10 mg = 1 tab(s), Oral, TID, PRN Spasm, # 12 tab(s), Refills(s) 0 cyclobenzaprine 10 mg Tab: 10 mg = 1 tab(s), Oral, TID, PRN for spasm, # 30 tab(s), Refills(s) 0, Pharmacy: [facility] 858, 157, cm, 01/23/22 7:20:00 EST, Height/Length Dosing, 55, kg, 01/23/22 7:20:00 EST, Weight Dosing ibuprofen 600 mg Tab: 600 mg = 1 tab(s), Oral, q6hr, # 40 tab(s), Refills(s) 0, Pharmacy: [facility] 858, 157, cm, 01/23/22 7:20:00 EST, Height/Length Dosing, 55, kg, 01/23/22 7:20:00 EST, Weight Dosing naproxen 500 mg Tab: 500 mg = 1 tab(s), Oral, BID, Take one tab by mouth two times a day, # 14 tab(s), Refills(s) 0, [facility]acy: [id number], [...] Problems Abnormal uterine bleeding / SNOMED CT 3377892938 / Confirmed Bony prominence / SNOMED CT 7920319178 / Confirmed right shoulder Dysmenorrhea / SNOMED CT 938073534 / Confirmed Headache / SNOMED CT 94352301 / Confirmed Microscopic hematuria / SNOMED CT 582686453 / Confirmed Migraine / SNOMED CT 98495811 / Confirmed Nocturia / SNOMED CT 998262007 / Confirmed Postinfective urethral 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 Normal [facility] Comment on above: Result Comment: Elec tronically Signed By: Nathan POP DO\.br\Date and Time Signed: 12/30/22 13:00 EST Progress Note-Physician Patient: DRISS COPE Age: 27 years Sex: Female : 1995 Associated Diagnoses: None Author: Vamsi BLACKWELL, Art Barron Preoperative Information Anesthesia Preop Info: Time patient [...] Auto 46.6 % Lymph Auto 40.5 % [place] Auto 7.6 % Eos Auto 4.1 % Basophil Auto 1.2 % Neutro Absolute 2.6 E9/L Lymph Absolute 2.3 E9/L [place] Absolute 0.4 E9/L Eos Absolute 0.2 E9/L [...] BID Multivitamin (more content not included)... Normal [facility] Comment on above: Result Comment: Elec tronically Signed By: Vamsi BLACKWELL, Art Barron\.br\Date and Time Signed: 12/30/22 11:46 EST UA With Cult Reflexon 2022 Bacteria LM Ql (Urine sed) TRACE Normal Trace [facility] Comment on above: Performed By: #### 1 [id number] #### [facility] [address] [place] [address] Bilirubin Ql (U) Negative Normal Negative [facility] Comment on above: Performed By: #### 1 [id number] #### [facility] [address] [place] [address] Clarity (U) CLEAR Normal Clear [facility] Comment on above: Performed By: #### 1 [id number] #### [facility] [address] [place] [address] Color (U) YELLOW Normal Yellow [facility] Comment on above: Performed By: #### 1 [id number] #### [facility] [address] [place] [address] Epithelial cells.squamous LM.HPF (Urine sed) [#/Area] 0-2 Normal 0-2 [facility] Comment on above: Performed By: #### 1 [id number] #### [facility] [address] [place] [address] Glucose Test strip (U) [Mass/Vol] Negative Normal Negative [facility] Comment on above: Performed By: #### 1 [id number] #### [facility] [address] [place] [address] Hemoglobin Ql (U) 2+ Abnormal Negative [facility] Comment on above: Performed By: #### 1 [id number] #### [facility] [address] [place] [address] Ketones (U) [Mass/Vol] Negative Normal Negative [facility] Comment on above: Performed By: #### 1 [id number] #### [facility] [address] [place] [address] [place].plasma/Lithiu m.RBC (Bld) [Mass ratio] 4-20 Normal 0-3 [facility] Comment on above: Performed By: #### 1 [id number] #### [facility] [address] [place] [address] Nitrite Ql (U) Negative Normal Negative [facility] Comment on above: Performed By: #### 1 [id number] #### [facility] [address] [place] [address] pH (U) 6.0 [pH] Invalid Interpretation Code 5.0-9.0 [facility] Comment on above: Performed By: #### 1 [id number] #### [facility] [address] [place] [address] Protein (U) [Mass/Vol] Negative Normal Negative [facility] Comment on above: Performed By: #### 1 [id number] #### [facility] [address] [place] [address] Specific gravity (U) [Rel density] 1.025 Invalid Interpretation Code 1.005-1.030 [facility] Comment on above: Performed By: #### 1 [id number] #### [facility] [address] [place] [address] Type of Urine collection method Clean Catch Normal [facility] Comment on above: Performed By: #### 1 [id number] #### [facility] [address] [place] [address] Urobilinogen Qn (U) 0.2 {[place]'U}/dL Normal 0.0-1.0 [facility] Comment on above: Performed By: #### 1 [id number] #### [facility] [address] [place] [address] WBC Auto Ql (U) Negative Normal Negative [facility] Comment on above: Performed By: #### 1 [id number] #### [facility] [address] [place] [address] WBC LM.HPF (Urine sed) [#/Area] 0-5 Normal 0-5 [facility] Comment on above: Performed By: #### 1 [id number] #### [facility] [address] [place] [address] URINALYSISOrdered By: Courtney elizaebth on 12-30-2022 Bacteria LM Ql (Urine sed) Trace /HPF Normal Trace/HPF [facility] Auto SS Bilirubin Ql (U) Negative (12/30/22 8:53 AM) Normal Negative [facility] Auto SS Clarity (U) Clear (12/30/22 8:53 AM) Normal Clear [facility] UA Auto SS Color (U) Yellow (12/30/22 8:53 AM) Normal Yellow [facility] UA Auto SS Epithelial cells.squamous LM.HPF (Urine sed) [#/Area] 0-2 /HPF Normal 0-2/HPF [facility] UA Aut o SS Glucose Test strip (U) [Mass/Vol] Negative (12/30/22 8:53 AM) Normal Negative [facility] UA Auto SS Hemoglobin Ql (U) 2+ *ABN* (12/30/22 8:53 AM) Invalid Interpretation Code Negative [facility] UA Auto SS Ketones (U) [Mass/Vol] Negative (12/30/22 8:53 AM) Normal Negative [facility] UA Auto SS [place].plasma/Lithiu m.RBC (Bld) [Mass ratio] 4-20 /HPF Normal 0-3/HPF [facility] UA Auto SS Nitrite Ql (U) Negative (12/30/22 8:53 AM) Normal Negative [facility] UA Auto SS pH (U) 6.0 *NA* (12/30/22 8:53 AM) Invalid Interpretation Code 5.0 - 9.0 [facility] UA Auto SS Protein (U) [Mass/Vol] Negative (12/30/22 8:53 AM) Normal Negative [facility] UA Auto SS Specific gravity (U) [Rel density] 1.025 *NA* (12/30/22 8:53 AM) Invalid Interpretation Code 1.005 - 1.030 [facility] UA Auto SS UA Spec Desc Clean Catch (12/30/22 8:53 AM) Normal [facility] UA Auto SS Urobilinogen Qn (U) 0.2573728 {[place]'U}/dL Normal 0.0 - 1.0 EU/dL [facility] UA Auto SS WBC Auto Ql (U) Negative (12/30/22 8:53 AM) Normal Negative [facility] UA Auto SS WBC LM.HPF (Urine sed) [#/Area] 0-5 /HPF Normal 0-5/HPF [facility] UA Auto SS US Pelvis Non-OB Completeon [...] RAE Technical Comments Transabdominal Ultrasound Performed Normal [facility] eGFRon 12-30-2022 GFR/1.73 sq M.predicted among blacks MDRD (S/P/Bld) [Vol rate/Area] mL/min/{1.73_m2} Normal >=59 [facility] Comment on above: Order Comment: Order added by Discern Expert. Result Comment: eGFR is race adjusted. AA=. Performed By: #### 1 [id number] #### [facility] [address] [place] [address] GFR/1.73 sq M.predicted among non-blacks MDRD (S/P/Bld) [Vol rate/Area] mL/min/{1.73_m2} Normal >=59 [facility] Comment on above: Order Comment: Order added by Discern Expert. Result Comment: Pillowcase Folder jose kidney disease could be indicated at eGFR's of less than 60 mL/min/1.73m2. Kidney failure is indicated at less than 15 mL/min/1.73m2. Performed By: #### 1 [id number] #### [facility] [address] [place] [address] Office Visiton 12-05-2022 Follow-up visit [id number] Aislinn Cope 1995 F Date Provider Department Center 12/05/2022 [id number], [facility] None Chart Close Cosign Required by: Opal Ross MD[VARUND] No family history on file Level of Service:44034 SD OFFICE/OUTPATIENT ESTABLISHED LOW MDM 20-29 MIN (GE,GC) Reason for Visit and Comments: Blood Pressure Check [299] Normal [facility] Progress Noteon 12-05-2022 Progress Note --- Attestation signed by Opal Ross MD at 12/05/2022 3:19 PM [facility]: [facility] by the resident. I reviewed and [...] weeks (around 01/02/2023) for Visit . Normal [facility] Progress Note Vital signs BP 127/87 Weight 149.2lb Pulse 106 Temp 96.7 Normal [facility] Coding Summary.on 12-04-2022 Coding Summary. CD:[id number] Gh0 bWw+PGhlYWQ+ER6WJAVcL06 lxSLnlQ1AS9lNDM9XFVWRXM MJYU7PWH5hiDM9IXseW0Nak iAv YjxfwRRbRO86APb0ZWL4sWy eEOyknH2seZBgS4e9NyUqBP 16jY81OYgtVLViYlT7KpHob jsgbWFy F4gqTcRdrRJkNog+PHRhYmx lIHdpZHRoPScxMDAlJyBzdH dbXG0rOn9mJFIxLYThkNhil HNlOiBj o8nfOBAjCFdaDL1xoQhhI8W bmHA7BVQmw1r0Ea59pRA+PH OzCOU8kOsjEAdfs553EnWea 4eyBFA1 lTZdEDifFSE1Y07me5Y3UOZ cXZPuQGY1zKV7xT7jhRpqgo rhH8YbzFFzHoY7VQS9wVDsu M6toUzn qqknjE0sIqn+J59USO3LGMT DFU1SAeg8H7NtEkolyXH+PC 33JUEuTH67iNJarFXkm7xax Az8HmEb CNXnDEK9oElnBRzer2UyFVV pL13luYCbo4U0MALnyUfywM KxOkFxsHE6kG6nDZduaezgk 2hvdzsn Jgtwy2rdbj69zP07I94xDWs rLAUiUJI4PRXtOZInuEpcvg 9meR0vZl7+MEdep4amk4ege On3MrBp SRRflcXaiRziCPQ9e2DxVq6 3L0CatBpgk4PrQsl5fe91qQ Dwj8A9lMX6VBgmNVIdqU8rY WxlZnQ6 WAJtCxOsuZ56oCGqVDplDz1 cpVhexPtpXZ4cAMHosmujNB GlfR6rIGWrcKIwtZfwPE5rN TBpbjtm c997JuBfOOY0HNCpmWSmN7P frB7nLaQkLJCqOEQqB3LwqW XmYJptA741GHwjEwP4RPSix qLmE7Mg MCThuSobHhE7r4Z4Hy8Vv8A ycxreINC0HHzlCFEqXjG5Bn QpSgA3I4RoXsv7QOIbmUeoW X2gZ6Xj HPMorjluqbolcYU7HSHaEBL afF91sELdNManTu3au0C0y2 70EEElUPAgbB60Cq2nhZtgD TBwdCBU xF8grbhbl6wfrtvgNyNkNUR iBJp6NBe5EAVeiKswPoYfSS H3CzR9FUQ3hAXqrH7aeSawp cdufU6a Oyc+Y05nwF6fHDO9QWM2rla nTILwplGmGC52JQ91T9KgMq wvdGFibGU+PGRpdiBzdHlsZ P8jUnXf g9gfg2JgZJmjM7YlJSByUXl uWww6EKYiJYE2rHN5eQ3fHV ZpKOtej1M9tVF8J0UrgfOqu z8fi6uw NEBuXMhdR69fuHAtd2P4MDP ygYY5WJCdhWaqCxHhgE01Vu c+EPPmnDctt2PjPokxr1txy 2lucOw5 DcEcNJGzxwTcfGooEED3l8E ySw61T03iAUiePHJbFVDjTH DuXLFteXslsl8myS6tFh9+P GNvbCB3 lDP3pN0aUICvQkA8FXhyT14 3ZqSkbYToXuakq6now2rxhX r3IwSnTULbvqGqfMcsEZP9v 7MnRx10 C95oYWhqNZQyOJPxMPGkABW uoGsmgt2rjD9qKb8+PC9jb2 mylu02hZ71sHU+JZFoUDU8e WxlPSdw BYAebM1fYSdcSzT8QZBfFgT trR44aDFjONsyWg3gaQxecY wzMB8jYSEcqtmvo832XxBbm 2xkIDEw dGZgOExjMLB1G24jj0X0FJE oVQBlHTI0rNJ7bO5ieTbajw ogbGVmdDsgdmVydGljYWwtY YwgK820 IHRvcDsnPlBhdGllbnQgTmF oKPf5H3IhZpx4DVEndCieDM 9mmEOhJMohHq9psLufvVhcO O0yQTWd dygsk164AtRkh5mtAPHleWJ jYZbbXRI2O36np5E6XIRcCL NgDRD2yPK2eN4zmWiajbpgl GVmdDsg toPqjRcwFRdzOGbhY468OJG taGawGxEltyTdWEWfnJN9XR 00RA50lMNmb0F0lCP8H7DmC GRpbmct ilddzZD7CFSwBKNmaM45Ea9 qvJucSj7pHWCjPNI6ZHZvsA HqD7NkhB8fGqRjRXXvYZTiP 3RleHQt YGbwJ150KTyzXvF1WNOhlxH aD0GeWXQwpSgcDdV2u6X8Je 4SS7F0WX60RF48dLJfn8N2q WS5R7Vx CHPabdurxrcgiCI1KSJcDOU yeX64Wc7zrLlkFt4fWLBcQV X9RKSrtKHkU8ZfhK0cIeXdE DAwMDAw Q5LoeVEoMWaiG842XBkbRxO 7KGJyodJmU6AjXRSdtNqtFb N6i9P2Mx8CCFh4OU90DK50a ADux9G9 zOD3T1EcLTUehljckscarMH 2SZSkMHHcuI91Nd8sxEagYu 8xPUFqXJL8QOWjiFOsG5Ljm V4qGbGy XRZmELXzP0OtbTBaGHukF96 7GOyvNdE7AEKxjtZmC7MkLH ZawEiyYmW5b1N9Rb0DSGLuJ C29DDH9 fOY5RR93XH06E6MvXxryxTG ibGU+PHRhYmxlIHdpZHRoPS xzTJTmVgKuyGgzXP9oWc2rU GVyLWNv gCgxeNXsKkSxq4fnBRIbMZc uHX8ikNjeR3ZysCK8FNRiz4 d2Gi76E41lH9XtmKR+PGNvb YK9eLB1 tS5aLbVkHcO2GYsnN284AtJ nsNOnSxjxj8lis5cgfUe6Xo Z0ZJEyihLaiSmiAHA5r4BzB z85A94s IHdpZHRoPSIxNSUiIHZhbGl rln1siZ0qRo7+FDCwaAT2aY B3vE0bGrTiTrW7LQgeZ747Y nRvcCIv Dwwwn1soe0jueVd8KlQxSBE capYuyXecHCQ5s7QrJe20X8 YamDhyb9DuQwc3gn39uMBst 7Y3tTQ8 S2UmOIJsgzrdySAaoPmfQA6 eQWJyozrsIRRfiZ1dXQLpS1 m2IbFdOnB9PUzzN9HddyR9N DEwcHQg UIfdAIV4V66yz0U3ATTcVNF jBAX0yXJ9oW6rsUzdcfeobU VmdDsgdmVydGljYWwtYWxpZ 246IHRv fPlfJMPfxE1qXOJsdXUjjRw uYU9zSWKgaaqkLdKNNmADNU xtMIQUSBoSRpRKFK27KE47i SPhe9M4 eKM1I1SlNEJjmgzwygnqcKP 0CXRnNZRfoH92kPKsECixPo 9ea2B8u634LDHyXPAmhH76K w9wuMwn KIVmuTCLfH9cdpmxq3gqtca gHkGwHETaVPn9RVf7FTCvnP uiThNxTDO8DjU9JLQ2fNBkt D6tuSaq paktsP7iWsf+MDQvMDgvMTk 5NTwvdGQ+DEGgPSK2nOwwMI ndVLQsfS1kAKPpT4w1YgLhC lD4CBtz P0LjOFYqqjyrYh52jB6zCmI qKsO3MXdcZ2YphjM5QBLtiF MyKYdaFQB1V12lj9I1UOMaB DAwMDA7 vYG2mJ5umZlpxiqxhLXxaCm ztjWexTitREobDRoeR440FR PerGrzZzH9HWhmDLQhPX18P M65uHQi n5J7xKP5R8WrYOOgkjrrkzo luJW1LBZlPNJfvQ75pOEqBP upAe7ty1G2h514ORCcZFCmz B11Am0x tAcvKIRfqSRLdN9cdmgqu1c qvbajDjDxFTIeJOv8LVz3FC WsnGmhOcQrDHE4PmD0HYV7n DOnkJ6b yPzfnbsgcP8cAut+RmVtYWx pPY84GO04kWXts5V7mIS6O7 LaIGUmulcolaukbEV7BAGlL DUwaW47 nDMvMYbfWv3xi7W4x395PVU tRFKzmX72Qg3toLdeUWNigJ IAkJ7gnpjou2qmpvnyDkKhK DAwMDt0 DPh7BWJeuVvmWiZqVPQ5QeF 8FZN4qPEbmT7hiTeexfpskK 9wOyc+K2GhDNUzGQwjLZ93E X68H2Me PjwvdGFibGU+PHRhYmxlIHd pZHRoPScxMDAlJyBzdHlsZT 7zBv1sJJMoFKHpaHayjWOyD wGrg0uf VTSqRFsuJP3krKwcG5EhnID 1VZTbq6z7Dw40M01uN8VuiH A+ZZKkmRV3uJX0fV9wQuJcA sA2WLau L101YcIyvXNhDinyg7spl3b jiGu7DbHrPTGxyjMykYmbMQ P3k0WlEj01A82tVRkbVQGaA SIyMCUi GQBnkMaqot6tlE9qLl1+PGN wdTU7pJI6oH3iSuEcIvA8SS hcF914QuCyxJIuXwufM10fV 3JvdXA+ XINiKsl0XCTmkDuuOG6tlEK qWGmfYf4xIEP8VrFmLgEmNR hsM0ViZEUejcphzoawgVV7K DAuMDUw jE01Dt7wmVgfAg7cXSYnWBG 7KYIbeVOuC3DkgG8rDrMsNN CiGPEmZ0DkfEFnLFzxO561L GxlZnQ7 LMYqqjVjW4MaDEHjaYxzLdO 2e3Y6Yt0DyGghcMPlFI6uHn AbWQu3I4WqQxj8EYZafDvaC A9vcWVw IRkrHn7xkRhmvMxcES4uDWY oxnacd503YjVrv0fbIRFivC KzUPqjTDA3M97cp2X6DPKsL DAwMDA7 nEV0zC2mwBbpndheeHKcmUe cskKygOfdLXzbSZlgF809JS BtkJcfOmYPHab4W6CsLgv6V CBzdHls QO0wwEFnSTkoDy9reWciqDm aCS3yBWGrqaklk192WvXci4 euBUAvmNNqORmwLNK3U17ct 6Q9UICz ILNvRYH3dWA4bN6vgStywjj gbGVmdDsgdmVydGljYWwtYW suE568RSJjtPskMq4OVal0F 2KrRwm6 LBOxxRbgCM8ydZCaDXqrQh8 aqMixjBqvZQ7xDLXvdxfmh4 18XvXdh4dhHHZybDUxMVrkB ZQ4D53y k8A3MHQxHRUbTDC2rMQ5zZ3 hbGlnbjogbGVmdDsgdmVydG gjYXeiEVmhJ355CULslTxwS lBheWVy OjwvdGQ+CB88sm30H4TiGpb jYwu5SWKmMQL4oFM3pY0iHM ZaJHpnp1D2mND0P9HwieSuf e0ub5uj YXBz (more content not included)... Normal [facility] Coding Summary. CD:[id number] Gh0 bWw+PGhlYWQ+BE2EDYWmQ04 lsMYatD6OX0oRNX1KCIKYRI BVIR5TQT9jqBG8KVqdS5Txp iAv MmoncNOuCU22XMa8AJD3oRu pUChtgF5ezDLmJ9l0AvCaRW 90mN18KViaFKBbBrA2ZaXpn jsgbWFy F2uoQxYocVEtQmw+PHRhYmx lIHdpZHRoPScxMDAlJyBzdH yuAS1xJt8vFXEgLWJniZhnc HNlOiBj f6seOZOuQYjfBR0ymJpmU0W efJJ9LKOxh9p7Tq18fNL+PH IyFPU5kGpuQLred564HnLhe 1rkHXP6 hYOaMBacHGP0I94xc7U5EAZ iVDLpBBS9aJQ3vX9wcBusll avI4BujTOtMgS1DMO2nLKrj Z0gbDvd wwyvhS0lHvs+B17QBR4PBXQ DSY8PHty1T7BbWnmmpZH+PC 30PPLlFJ28cYTzcVDmq1bcd Id5MmYa AHUsWAK0pEfrJKdas5EmUPF uI94fhPGdy6L9SVKnfAgomW PdQwJvuTI4uP1tIWcrkktcu 2hvdzsn Yjntb4vlgs66oU10J69bARh sWBJoPDA4MMWpUAJwrNlads 3kaR1sKe2+ZSlrp8rmq0jwz Pg2PkAl LOSnfxOexQjgRKF1l3UyPa3 9V4IgeNypu6UkGrj4sj40fS Prm5G5oKF8DDynAPQnhH6xK WxlZnQ6 ZHAsCkUwiP51cDXgODneOf7 hcQudzUqiGB0dRLPtknbwAA XncB5gPKRcxSVenNfwNN5gG TBpbjtm h447GpQtUBF2JKXzuIVgT0N ziQ9dFkDyXAVuUERrE1QzoO BtXFfwE040DZaqCwO9IQCje jOsQ9Sv MKKgcLpeGkL3v1U4Dj3Cc2U rmgwdFUU1WLpkPHGiQzV0Qk TcDtT6U9TtUow9UBIafXuiL Y4yC8Pk RFFrlughlpzjcQB3PZMpGUD gmP45bMIyDSkcYl9uz7V3c0 62RXKhRBBjwO98Td7cnRmhY TBwdCBU dC8lgbmtf5hgslnwGfVuWXB wLGm8RLc2XIBtqDlzQgPiBR B6SlE9SEY6bXTkpU8rxZpba esylO4e Oyc+C64iuS0qGIA5PWE4ayp oXYHygnRhJV56WJ07N4WiWy wvdGFibGU+PGRpdiBzdHlsZ F1pWeAs w6usk0TzDPpaC4OvHYIvALk hQbt7KFEnFGF3iWJ8yY8vED DyDIfkq3K3qVO0N3UboiEox c6cf9vk FWUdCXgwX77ikBKnm1L3IGJ pmUR8XONqpVjtBaNcfW37Yj c+NVUzrFzrg0ZrAgxbi1fnk 4tgyRu0 EzIgQLWylnJzmIznJLL9u2U rAs27G42dZYowTIDcXAAlWJ BfLZHonAqmef0yvX2jJt4+P GNvbCB3 wPV6eJ3fCHVpIsO5TZziN87 3DcCvjPUxSsvhe2vtp4fpmK x8RgNwCCQradBsfKylWNS0m 1JnQz30 K92sLYdoOHGeEBHoAIJqANN apQdnqr1syN5mIv8+PC9jb2 psxk09dM25xYK+CEGsHKS1e WxlPSdw VJJfhA5iYVlbQwT2HETzEfP edG94oDAbYJyzWd8tdJofzU skLL6bDRJhkuhcj229NcQqy 2xkIDEw mOHbMBhbASR5P27ep8H7KJA hJJXqERZ7fHG6tJ1nrQrsur ogbGVmdDsgdmVydGljYWwtY NrwO399 IHRvcDsnPlBhdGllbnQgTmF nYXg8U4SsAvn6JPQtfEmnKU 2pgUBgEXndOa7luGwdtGjkZ R4vOBVl xujzv155GdLxq8vbWUBkiJA uOHdpLNL7Y68jq8U2DCMlYW AwFCT4sEB3vV7ujAmyfwffi GVmdDsg qoZrzMwdSQdrTNicF095XKC dtKenYiQddwUmHGMbmTN4BD 30DY90gMMck1U4fNO4B8QeF GRpbmct miqzpPA9ACQhYWFenN16Rl4 viAzsHg7hPLPkSTV0DUSohY SfD8IglR1bTvDdQPZiHTDxM 3RleHQt KEafC918IIuwYoC0ALMphdZ hV4IvUTHqmJhzVtH2c1Z8Co 3PU1B5PV46HU40cXEnk3T2y YH8N2Wm XHXzdahxlowcuEN7VGGwPDP duA70Bb7ppCgjMf3dNFAmRB J4FXNjcTIlI4YtoQ0vPtMyH DAwMDAw N3YbrYNgNQwrB376FNmnBmY 8UOUyiqQeN8XqQLIykSysSu H7u7T7Pe6DTYr6EH25HZ75w AXwu6A9 uTW6O4ApEBTivwwdelylwDU 2KGZdEYCzkK83Qc5izWnsGi 2uBWPyBFV3AVOkySVkU8Dny Y5mBaOq CVJkHQXkE2FfkOSdAPusY59 0TAzyMvA3RRAmtqUeI7HtBS PooPjyGaG6r9R5Ma3HFVGvD G37FKK8 iWJ3RR64RB57N4DrFctpiFX ibGU+PHRhYmxlIHdpZHRoPS cmULPvZkEbbOfyBF6kOz7mL GVyLWNv dDkhxSRxRnCxz8luIYRnVVo bCF5ibAkuM2BtiLM2KIPuj7 k4Zl22F60mV8KsrER+PGNvb ND5lNO4 cS0qWrLtSiR1IFasA301PqY wyJXzRvobs9rsn3bgmJk4Xi G6MILhmzOfaUzeNWR7m1HnZ i72Y68t IHdpZHRoPSIxNSUiIHZhbGl bvj7ayX1tLh1+RPSbkJO0iG F5uZ4gVeLxAxI1LQdhN283X nRvcCIv Fceox4wlu6bxrBh9KeNuRYW pluGhaYknPLO7f8CwEq69I6 TfxSyoz8PzUzt5yh17bEIoy 0Z7cNE5 K1EbIYUhhrmdoLSasHbiAT0 ePVElsqtwYPPjhL4jCTIlG7 c0FlSnXaW5TZlkS9YmjuZ8P DEwcHQg IKrbXKF9R70ky4L6GEXmCBQ xDNI5oDO4jD8coVyknrpswI VmdDsgdmVydGljYWwtYWxpZ 246IHRv kVcbLPVbfA4wYPJmfBXaeYw kHS9iHZYufaltAwLWWwYIYB meEHBJUFnJIkOTID28QQ34w UOgl1D7 mWX9Z5HgPWLzlfqoyrldnXL 6VMYsUZCjxU86jDVsNGzcGo 1rj3Z8w081NZRkYDLtfT50H l3jmYon JNZzwLREbN1xxyzkn9iqxoa bZyVlAIEoKJn6YZy8QPXrwQ ssYlDnYNW0NyJ5INC0lRZfe O0qmZpt gqsluQ4aOyg+MDQvMDgvMTk 5NTwvdGQ+MMDtXWS8dYykQE qgHBNhkH4xNMPaA2s9DnFyD nE3ZHiy N3ZxAVNvefujDt17bU8oWoY fJsO4AAxxX1GiweZ7ZAYvqN PrPEudNZU4E07ac9L2DILrO DAwMDA7 uHR1yY5kxSobciczjKRndZr btcDmhScqLAnrIQduJ146OK VckErfDeX9LHbkRGYnYP56Z B74tCXy m7F5xVA2V4IyETLsqpslafc kiLV9ETJqUIXvcD70fLBmAE ocAx3qh6I6f083CASnPRGej Q14Vi0d hVgjATPbjRIUuA3wpxtcv1s ejmkyYeQtUSXcMWq9GCe8HU IjsWrkTaCcHOQ8SfD9CLR6o GLfiE5v ePhwdsotyM9uLpy+RmVtYWx wNZ95IG45aZDtt5O9fEO9K5 ApXGPlrwjpqvjzqWY7ZWKwR DUwaW47 dWMdFQyqXr3co4A7k946XQH cJFTtnK53Xy0vsFfeNTZktD XWgB6yuyizj2znehhuDfQlG DAwMDt0 RJu2FFJucNcpFjTrLPI0RkJ 9XEZ1qQQwuN5jtUfjukggiJ 9wOyc+T7AtPFPcWGgvBU88O M87Y1Gj PjwvdGFibGU+PHRhYmxlIHd pZHRoPScxMDAlJyBzdHlsZT 1jBl1vTHOhHGVdfEkrqDImP yOmh8nx XLBfJPeoEO7eoOtuI9KfbLE 0KWWlp1m9Md45B54kH0IokY A+TBKukGC7iWQ8vU7dQtBgV dM3JUhi T702MgBboTInNebvo2git1q fjBt7NvNvGQZzcsQmqItlCS W7m5DuZf30S79aYPoeHHAbZ SIyMCUi BBSxsKkbvt6yyM5hAz8+PGN xkGH2dNN8pV7hPiDbEtN9XR qzB620HnBwwFRnMvobL31yN 3JvdXA+ UGCsDel9EWZboDiiLQ4lcWR xOJvrWk9gLTC5LgAsWlKqFM ltM8VwKVEezeywcsutzRK0I DAuMDUw zL42Vy8zbFlyPn9uUVYeTAA 2LYOayOEtZ7PhyS6kLyDpUV SyLRVvN5IyjGJcDWgmM369E GxlZnQ7 MMOzmnBuC9ByVTYheBqzDtH 9q3C9Rt5VnOgemERfXN7jYg KsSKq0Y6HvMoh4ALFarEluL K9guSKk PXamBd7mjZngyGmlPV9hHCP swpufz342BiSxf8hfXPVnvM IoAJnrELD2R93de5S9JYZoW DAwMDA7 sNR9nE0lfBwddfvesZHtmWo dopKsjZytWTgjUSbeL032OB ColQswQtLJQni2Z2XvNzn6Q CBzdHls RE7uhKFtZBrxWh2apYstdXk aKS6fTHHosucuk070JoCsy7 aeRVCksQNtBUboIDC3E10dg 1H2JKIa YNDpXUV2xRR1fJ1knSfaxxl gbGVmdDsgdmVydGljYWwtYW dpJ264QDXczSxjEt6IEfy6A 8QnYvq9 HVLzcNpcFF3ysIQvOQvtSp7 jdFqbkZrlNC3wZIIvywolk6 26OeXua8xeJWHmzKXeRZdbF PU1N98e x5L2UDBrRRVkBBK8uSG3sQ0 hbGlnbjogbGVmdDsgdmVydG dtUTupAUvaA235TJMgiHozW lBheWVy OjwvdGQ+BP40lu79D2WpXqs bCnm9GOTwSNO0iLA7qZ9lSD ApSOzep8N3yTX6R3DbsjPvo a9go7ce YXBz (more content not included)... [facility] Coding Summary. CD:[id number] Gh0 bWw+PGhlYWQ+BF5MLSJyH71 nfNQfuN1ZI2bJQH0SPBFIJK GRNU8PMS2qwHA9QHnrT9Pvs iAv EmlqoVGdEF05SVk9HGN7hYp qBMxbfW0ioWCeD2y9TvVwFN 09vE36QXdbEUQuEpR8HjOmu jsgbWFy M0uuGqWpyAJdDes+PHRhYmx lIHdpZHRoPScxMDAlJyBzdH dnXD6zFe0qJRJuBHPrlIogo HNlOiBj n0noFGLbLIkkHD4gmQktA8N xeEP0XCJbc5w7Zz72lEV+PH IhDXQ7yUjtQXgrj271FyGcb 2mvAPX6 bAZgQKolGLF3R59lj0V1SVQ uYTPyVZG9xNX6nY1pqSyjgg vcW9PibPEqTlT2YVP9mFHwz J8kqQpo unlpoB4pZsp+S16YEM5ODSZ WRL8SYks9R8JwZncehCM+PC 16UGTvEQ70iTBtwZSri4xqs Fy1PoMn XKWhTIA0iXnwFXrgt1QeNJD tQ20hcZAmx3G3WQNwbBezdX TqLnGaoUQ3xH4eLGbplaqce 2hvdzsn Rzmlk5pegr13sU50C29mTGi bSYMvZQH6EJWpVPWqpPvihk 9xyQ9lUt0+UKdbi1fyg9uko He2NrOi KJClzuHocTniVZG7j1PhOq5 7N8LhgVuac1RuHxa4fg47pU Ucn3L4fNI9DLwfSSTchM4cY WxlZnQ6 YLVlQuVryD97rJQeFPhuMk4 dfVaagSzrSW4jRTDfcipbJU BptC7mNXRewOMscGppWG5wS TBpbjtm s378CvRcFYW0BWRzmAOyB2T meK7fOsQgITBzFMXcH3FstY ZgGNahS814IErjIxD5VRYnm zCzK8La FEPmuIduImS7c5I4Mc6Kp2Q ldpssNRR8QWxkTCElXfX7Zp FwFxD3Y8VsDok6BOAcxXkvY F8pE7Mi XLCespulrmsuoLX7FHPqOBO abJ14jHJxVGbxCh8yf4B5d3 78UGIvLTElhH70Dz0imXikV TBwdCBU rY0unnkoz4liymxeWdZaJRB aJMy4MMa4ADUjsAesFtMcRW O8AaH6ZXM6xAXynC6byWwix azgxE1k Oyc+B76qoQ0uKAM2ONU4qra wTPWmucVqEC33PV77O9LhWe wvdGFibGU+PGRpdiBzdHlsZ P5rCjVj a6xbe4PmOHffU3QtMJXmGUf sHyv0OLDeOXD6sJH9cW6bYJ ZxZBpuf2Q6wLE1Z4WxlsUuo u4jp3cm JHWdZRahS23adPLqi5H8RDE zwSP7TIQdyTivApNirL57Fk c+SUKxnMjwe9KkSdojb4gsc 5ylwSp6 XxPnUWMkbrTvmTkeWWP0y5C eFr45V53dGHfzUPVvREAdBD CxPYMerDcasa8cyM6hTd4+P GNvbCB3 vAF7sC8nQMXiRwB4HVclE43 5EcNaiDOeBncty0omc2kszI y1SyPkSTApluYdtWkkTHC8a 6WtHt43 X69dHFbsQVGgBRIpXBBhHEF elFbfbr9nnC9sLg6+PC9jb2 sklc38uO75xRG+GCTgZFE7l WxlPSdw WUKvsY6jCZzdZtL9IKFiWrQ xxR96lCJpQIbuVv5tcQxhtI ebAQ6eVWTkqtfvj705GtRhr 2xkIDEw hDLyNLkhMHG7T89tl6O6PGN rGDHzNJG8vBS0qR6hjMqwnn ogbGVmdDsgdmVydGljYWwtY YxfT652 IHRvcDsnPlBhdGllbnQgTmF wRMi3Z3QoIkp6NQShdOuhPS 5xpOVbKJqvJs2xsVamoEzsC J9pWBSb mucjh081JaTqw2roJLDrwAD vWHsaIEZ7Q75nj2R2UGXrXN PiKGM8bAU8aW8qeFunurggp GVmdDsg kfQamCgiTDmmJWkgR290RJN ybZogPrHcijDvKSZqsFD0IT 53ET99fASso1V5uTR3R8UeV GRpbmct adspaMD0UWTrMGDusL56Go2 tpLxkEn3cDTHzHMC6QBKvgI LhA0HneS6uTlBsOLWaXTMqO 3RleHQt MXsiV309ILgdYdO7EIJygmE kF5ZpDMDzaDqlEbJ0s9Z8Xs 2PY8M6VF67NM84xSEjk4H3e SS3T7Er DKKeujzmxqqsxEQ9HICgVLM ozS82Wa8axCgxXe5sBVBqCJ K6EISdpZSjN3WaaI0oCkSzX DAwMDAw X4XhsCVrBNqmP684QLuiWdL 2TCQedqBpA3MkNSZaiTanXu X9w0S7Lo1JQQp7YP70JR42u QJpc8C2 dNT2W5QeCBGjoazytiofrBI 2AGDiOVBfeN60Ge5twEmuSa 0iKXKyUFK3HDIalQFeT8Hpu A3jJiIj SPXiOSHmV1UjxCVvTYuqG90 9FYpzQlS2LEYtktIcJ1ObUU MzlVxuOfY8i9Z6Wg8PZSRiP K84PHI7 mDZ6QI64LV90H9HcPcydtBI ibGU+PHRhYmxlIHdpZHRoPS nlGCUwCwKbzNmnXU6kAo6bF GVyLWNv wHjaoPBlLxEgk7gqBFAjBQg jRQ5rdWkgE5WqfGV4BRMps8 w6Dr97U07iL6ZuvEP+PGNvb VN4wMN9 lU3aEnIxLgN5YEavF550DzI ysQWwGaula0ubb5bxqBc4Hu Q5DFRlgdUcnFxiTLW1m9NtV n06Q40e IHdpZHRoPSIxNSUiIHZhbGl sbd4bdF4lKj6+FSBedSM0xV M7oO6qMkQzBsB4RWzlL525E nRvcCIv Apmqz6uho2sbgVk0XcQtLFP ayuBidZxdVKQ8n2KkYj84F8 AkzJrxj3UvGmy6mu70kLLui 9F0iNC5 M8DmECVfxumdvQKfuGerSB2 bEWGmdqalHLDcnL9oKSZzW5 n2CaDsHhJ6HCwbK8YawpK3I DEwcHQg PDqvBDU2Z75cp0T1HXGdGTZ pAVR0tMC3jP1fvBvpnnqedB VmdDsgdmVydGljYWwtYWxpZ 246IHRv oZfoEMPnwP1zIJTjqPQemPx rTS9jPAGzzsdkDkNERbHWBH mmYXHTYZuWXcWUTO20FE66p CKvp7N8 lUZ7M8FwANMxcqpxjcqaiBW 6KDFxAHZbsJ19hHDmSFqvIx 0mh7G5o618YCRfNVGnxA80Z f9gsBel CILjiLQLrD2qmdcmi3rydym xTjGnTBPtUBh0PFd8BXNikY kpTyDdWFC0ItZ9MHA8rPDtn V8vpXlv uppqwH7uZlp+MDQvMDgvMTk 5NTwvdGQ+HIScAOJ8cNouNJ cnRLHxdB9kNRAxI4v3IaPbC eX5JBrr L7XfXVPrsqxlGk83jB2zMlF fEkB3NOdqQ5XzysB7HKBriJ FzNEpiEOM6O05tp2M3XNPhZ DAwMDA7 lFB5tV3mtEkfkahctLEqbTv hdjMtrKwgXAgrDLmbZ335QC OgsXkwAjG6UMcyPGSoUU69S G02xSJk s6O7xYC0A7NaPUQmstalywa iaTP4FOTsXSRpsL12gUBhKO qbDy1is3X5b646JZUmZYOqd T11Oz0p iNvjRCZcqZTJrT3fjzijw7u botmfKaJgEQCoMRd7IPk8FI QtxRvgZkFaALJ7JpR3PTK6g SGiuE7r fHphbqtxoJ1kWyt+RmVtYWx kFC85MJ76oXArh3E9oOY6R6 HhZLGilcfpxwdthBW5RTKxL DUwaW47 yFXuUCpbKy0nb0K2o413CNV dCLMosX59Ox2vaXmhITRfiD FFlF8dtowvm0whcjguLiJcR DAwMDt0 SYa3VSEczTpzZtEsKVD2QvO 6NLJ1dBXpwU2tqZqlmrvrxY 9wOyc+N7AbFGCfAVvzMB50A Z21F3Pf PjwvdGFibGU+PHRhYmxlIHd pZHRoPScxMDAlJyBzdHlsZT 5wIk8jGEVuKAWewAzcmXPqF hRjt8sx WLIcAWuiSB5niKjsL0VhqTX 0UCOkm6c3Yx29Q17wY0BevL A+GJUobUK6pAO0yJ0lIdBpK nV5WIsb G857RoRnyCHoMesbb7bhu7o azXj0XtHgJFYoquUpcUzsXG R7g9IlUw05O04rOLvhTKPmW SIyMCUi SVPqhEawfp5klQ1wEm9+PGN ntDD4uRS7lS4nVjMeZqR0QH rsI951AdSruFOdSfaxH83dA 3JvdXA+ HLSqYee7JTKnzKwiJI3ayQL oUKmuXu3vBEY8LgTzJgKlGJ lrA8AkNHBryudepfvwoPS3T DAuMDUw bG74Ni9tbCpzEp4dCTSjHZE 9XFHzhCVvE6JdyN9tZzJaLW LgOCDdV8UoxQXtZWrgS175V GxlZnQ7 TFMjrpNrC8DtYQQskWroIgZ 3e6D9Zz9OkVzyqQRhRY1fTz YoJZg4M4MxIay8VHTqaQmiI A5msNOy PMkcSy9onPcibGeoQA6xGXG udrrld734RoInt1psGRPwuM SjKCvhMVP2O16ft8Q2UYCqY DAwMDA7 fVL4mU2cbGemdehdyOWezNf xilRvuPbaKCsyTRngQ319YH NhuTrfFfMOUuw2E5PzPgh4B CBzdHls YT0btWQeYDuuVj9mqIxrmLq cIL9xIRYlcepor714OfYrs1 lvCJXzrJLtVRgfLHU7X72vs 4N6EGNc OVHsMME2oIO2xB5vqUwsggy gbGVmdDsgdmVydGljYWwtYW zuB491LNZshUkqSp8AMcv5Y 8OaHsd3 QQApvHfaKA9meDDhXLrzHj0 ksMzwfFksSH6oVIRxfxsfx0 23HoFci2qpWOMgbCVrXEsdA TM9U55z s8P8RCEjGARoADX6qIH4gC3 hbGlnbjogbGVmdDsgdmVydG jcBQouGKvwJ862VVQrnWsyJ lBheWVy OjwvdGQ+UB34de75C8CtFmp zXvr4MDMrJCP8rQX9eX6tAK BzCSjkh0E1lNH5F0UjfeDqc n9ml8sa YXBz (more content not included)... [facility] Progress Noteon 12-02-2022 Progress Note Late entry due to patient care. Resident Lacy notified of B.P 138/96 heart rate 119 around 1236 see flowsheet. Also notified checked in 1 hour via orders and B.P 143/87 pulse 111. Clarified if should check in 1 hour according to orders. . Also notified patient has discharge order in. Resident Lacy states No on rechecking. Ok to discharge. Will make patient aware. [facility] Progress Note VAGINAL DELIVERY POST DAY # [...] FVL+Prothrombin (heterozygous), Antithrombin III, APLS Assessment/Plan: Driss Coep is PPD # 2 s/p Care - [...] Vanessa Zambrano DO 12/02/2022, 5:09 AM Normal [facility] 42on 12-01-2022 42 22.5mm flanges given to patient. Encouraged her to call for observation of pump session and smaller flanges. Martha in NICU to assist with personal pump. Normal [facility] CARECOORDon 12-01-2022 CARECOORD 27 year old [...] Denies any concerns at this time. Normal [facility] Progress Noteon 12-01-2022 Progress Note NOTE [...] with more than 50% of the total zust-gc-rvbd time of the visit in counseling/coordination of care. , 9:[address] [facility] 42on 11-30-2022 42 Swabs given to patie nt and educated how to [facility] Breast pump use indicated for this pt. Due to: infant in [facility] breast pump, supplies kit, swabs and [...] and support patient. Script sent to [employer] and info given to patient Educated patient that she will most likely need 21 or 19 mm flanges for home pump and how to measure flange size for home pump Told patient to check with in [facility] for smaller flange sizes [facility] Labor and Delivery Noteon Labor and Delivery Note Attestation with edits by Carol Bowden MD at 12/01/2022 8:22 AM Procedures or Surgery: I was present for all morales elements of the procedure or surgery as described in the resident note. Vaginal Delivery Note Department of Obstetrics and Gynecology Patient: Driss Cope : 1995 Date of delivery: 11/30/2022 Pre-operative Diagnosis: Driss Mojica0 at 35w1d 1. <37 weeks 2. PreEwSF Post-operative Diagnosis: Live Born female Delivering Lease Picker & Batch Maker(s): Dr. Bowden; Dr. Kramer Information: Information for the patient's : AngeloFrancie dia [[id number]] Information for the patient's : Megan CopeDriss [[id number]] Description: normal Meconium Noted: No Anesthesia: epidural anesthesia Complications: None Application and Delivery: Driss Sidhu at 35w1d admitted for IOL-PreEwSF. Her labor [...] attended by the RN for evaluation. The infant was stimulated and dried. The cord was [...] Rubella Immunity Status: No results found for: RUBELLATAMMI Kramer DO 11/30/2022, 4:[address] [facility] Progress Noteon 11-30-2022 Progress Note Chauhan catheter inser tank by Andi Bacon RN, catheter drained and emptied for 900cc. Catheter secured to leg. Normal [facility] Progress Note Patient up to bathro om but remains unable to void. Bladder scan completed and reads >570. Sent secure message to Dr. Ruiz letting her know the above. Instructed to place chauhan catheter. Normal [facility] Progress Note Secure message sent to Dr. Gamez stating patient is having difficulty voiding, patient's perineum is very swollen, and that patient was straight cathed for 950ml at noon. Received order for benadryl to help with swelling. Normal [facility] Progress Note Nutrition rescreen completed. Chart reviewed. Patient to be monitored and followed by the diet claim technician. CRISS Oshea Normal [facility] Progress Note Patient unable to vo id, last straight cathed at 0400. Bladder scan obtained for >928 ml, fundus +2 and shifted to right. Patient straight cathed on attempt x2 by Andi Bacon RN for 950cc. Will continue to monitor. Normal [facility] CAREPLNon 11-29-2022 CAREPLN The patient will continue to make cervical change. Clotilde Mg RN [facility] Coding Summary.on 11-29-2022 Coding Summary. CD:[id number] Gh0 bWw+PGhlYWQ+GU5BVPUpT83 jkTHygY9OG0cAUD0ZWXUEFQ YKTR4BJZ0cmSM8ZSkjU7Fwk iAv HmqbjVYnHT97PEx5CRD5dOx iCWgahP5jjZYdG7w3NjGqNP 10mI89LUrrKMZjIaP0VhMfb jsgbWFy V9crTbCpyLDzHxb+PHRhYmx lIHdpZHRoPScxMDAlJyBzdH axTW3lHr8nTFQwETFfrPhox HNlOiBj d5edLYNdWTlqBQ0pdYxeD1M qyEP0LUOji6d9Yn94dTQ+PH XiPPP3hDjrNSbdi907JuVqj 7lnHDQ0 eZYmBExlBFX2B27hx1U1GNH aRZOtQXO4qYO7kV7mnOsojm dxS2HtlZGtDqT5AGE5cOIzx F0vrZjg xpaoeM8fKvs+J38HXL1SHTB XTI6MLis6J5DvJsvckVS+PC 97WAYuFR60vNIewZXoz6ayg Wx9MiRi TUKmYBA0iOokIEhlb7MzZLB cX74fnUJiw4D6UIPkbSctgT QoGpSopUX9gQ3rSEwmdvgrh 2hvdzsn Lteqd5nwyi30aP32O82jCHn yIVSsCFF5JLPtLFXusRmluk 4rnF7tUx7+YKhmw1lkj7jma Hc2KcKc OEMvovGkmEcfGPT5x8QpBg9 5M0ArwRqod0MaQug8nl33jN Ete9H2gBW5PEqpUBWyxZ1mQ WxlZnQ6 VWYaZmCamA21dKOoIRkkOc1 riQbnrNkcCV5kMKOxdlcqBF JsmA9yIHGhpBKsyYjnFN2sT TBpbjtm h722OwLmTHQ5LCUzeAFlA2T qqT5gVxHzQBKdGIZgV0UefU ZzWVagO987ZYekLjI1LNDkk wUcG7Tg ZBXkdZinKrN6t4A2Iw3Oz2Y bribbVGP3PWkhJSMxFkM5Va DtXkK6Q2GqGbc8MLKxgNhlV M8eF8Dh OLXcdwdbeyihtMV4WWKpEJN mdB38oLLdHPysNk7wy4C0d4 81AVBlBZRojO32Wb8xjXnlH TBwdCBU iK5rfxlxi3rvvrgxXgGfPNO yCVz3UPe2KANpuEjfXwOcBM Y2SrQ4CNW3hGDdnL8llZudn xkyoX7l Oyc+O86knN5fZEQ9QNF9qtb jODQfrtQxMY57CZ28V2TbMh wvdGFibGU+PGRpdiBzdHlsZ Y5vOtZq c7kmq5InMFbmE5YdXESiPYl tRtm4MRIsWOX7pAZ3pI4gRG YoVCypp5O2kUK7B4BdkvCwi o2ox5pl CDTlZNrhE00mcLGoj5Z0UIA wxSJ0FWBqtYpjCoGipH88Xs c+SBVglGzaf8DlZgobu7zet 2zgbTu9 GoYbXGDewsNpgZblZTJ7i1E xFg34B67iMWnrCAAwMCNrTW PxVYQciFvjnl5xlB9iSo5+P GNvbCB3 nNE6gR6rIPZfTeH6RCzhZ08 9SvMdfQAqOhurt2sbz4aeoU l4ThQvGDZgwfWtbHmlIYX6r 6WbVh86 S27sTSjnKSPiHNAtKYPnCXO bmYfkro9rvL4kEd7+PC9jb2 yhjk59cB01lLM+ZSBkQQV7g WxlPSdw XPNkuL9tAAjuDtR3TLJeDmK nmI52sSPbVObaGj9lxDsftU yxZD1nQKXttazhm413VkWjl 2xkIDEw cYNmFZjqTWO2F49jm8N8QWI pMJPiHKT6eYI3yY0ymGhxzu ogbGVmdDsgdmVydGljYWwtY LrgV482 IHRvcDsnPlBhdGllbnQgTmF uNXs7X0TtQgb7JICbaDzsRW 7pcJYbVRseQd7dgPzshVwlI C8jICUq vwrtp912NvPrq2rsEARucFS bOXceFMA2S24on5A6DTWwYJ LpXEA8uHA1iD0omRddjfqou GVmdDsg dfMddUvrPZyaAOadN694DDH whFjpJvTlzmCmVBAfpLB4VJ 68QY45uHDak1E3oCB4J3EwE GRpbmct cridgXR8IWXeWCXfyN62Bx7 xeRvaMq9fMITxMAT2MEKbdY OsE1XgsR7jHwYgENMtLUErI 3RleHQt XDyaP730THolZkS2VLTaqcQ tX1OzVMXgqNehLlN0o2D5Ge 4CM1L6VH12GR53zFMkj4O1w KR3I6Nw OSDkcnxocmwtoMB0HJDkKMV tfO62Qq6mdUocRs4qAFLjSB R2LGSwuOOjG7MnvY5jSsHsU DAwMDAw B2NeoNHkJTvjQ827PGrnYmP 3QCFbijXlC8DoEOZmqJauIk P3q5K7Qr9JBWy2ED06ZM50j MRqv4W9 nEH4V0UvYPAqpopwzzpwsCJ 5CPYfZSDdcN86Dv4ofLcvXp 8fEBPiUOW0AAQgjNYtU8Ljz T1vLsUq WKZuTIAeZ4XgrILbIDbpL01 3MWkyVeY9ISHjdrEzG2HzLD HmuBwkEdC7y7O7Qo5GDQOaM H84TYW2 uGM3IW21RB32C5HiXmbxmSZ ibGU+PHRhYmxlIHdpZHRoPS ueYLClNxGkbEecIO7wWj6eG GVyLWNv vUthrAZmZrLfb7lhOHZkDCn nEN0bxPwqQ0IpuZU2NTZgh5 c6Qt68U30vM7VzvNA+PGNvb OO5yEI1 kO7pCoVeJbR4QDtgH335FcL uhMCjUfjka9vqr1tnfMl7Ic G5CJWysuDekCiwQJM6e7AzL v33B01l IHdpZHRoPSIxNSUiIHZhbGl bwk7srS5tVn9+RBSnzYD5bG W1qX1uYyOhPiT1AJfwV818I nRvcCIv Ohvyo6ses3vgoUp2UyYlQAW okzHweRmpOJZ0s4UgXa73I2 XdhQhni8JrZaw5yj07lNXoy 5J7eLE1 P5PyXADdrjrstJJqpBaaSU4 zJYVwyyclPZTapM7iXVLtW0 v8KqMyQrP1VPjdV4ThwkL0A DEwcHQg VAfpGGE5X34ja9L4SIGqGEG sXAE1dYY4kC0lpUgkjpexcH VmdDsgdmVydGljYWwtYWxpZ 246IHRv xUbnHHSgrR7bLEKqkQQmfDh tOH8wKXYiqkquXnUJAbOEIJ xnIOYUHOcZHwPIRP14OZ95m MHfk2T1 jUI0V6CxUAKtamkphmdgnKX 8SIFqBOBohM29hGMiEQnxMl 8yj5E6d746XKFiREBzkJ64R m1tgOtb IPUtpRKDoS5rmhctu2sxyao eAlUeUHQlDVi7BDb7RDIzdL glVhMlOOY4UiC3EPR6wVCgv U7avSvk chmncM2lPne+MDQvMDgvMTk 5NTwvdGQ+FVBgFSX0yIsiNK emLWRilI2pOIJfI3u8LcDxT mK5AKnf R7RyZQQrakdoJi69lX1hMrK gOaL4FAmyH7XmhrI4IRQcsE ZrKZlqPQL5V19yf1W0ICPsE DAwMDA7 xFS3sH5puWbyfwrusLWriEe fwbEotKlbMHwpPInpR556QD CzyZwaChK0QMaeKQZfBW56Y C91xJDl h7K1tGJ0A7CwOBWfqjlyjua deGG5JSSlJLUenB98fYJiZI teJk0lw7K7x621RJRdUXLqv O64Gj4f uMmrWXZsdAGVkO6iferip0d ccsycDsSpBOYtROo2STu6IY RwlWpsNaTdQAS9UjE6XSD1i NSezT9v mZcrfrxpjU5qKum+RmVtYWx vDD07CK97hSKnl0J3lIZ2Z9 KfBQCetvstidgalSX5UMFqV DUwaW47 tIXkKKanMs4rc5K3u917ISB oJXPzlL49Im0tmVtbIWFjbK IHrA9wwhias0aaensdXnKdN DAwMDt0 ATw6KBSpxWonTlSdMMG9IdO 9LOF5fONqlV9nmRirhqnsmH 9wOyc+I2PeUGWjGUxfNI03B B42K6Vz PjwvdGFibGU+PHRhYmxlIHd pZHRoPScxMDAlJyBzdHlsZT 4nHm6aIGDpUJFkcAgtdWZkL yPdm9wo XUScLVunRR5vqNivF3FevSX 4LTYbe6j5Uc26B61kR3ImoJ A+DQMijNX8zED0rN9fFxVoQ sP4XLkg D636RqKatQCsOycbo1nyd9k tvRg2XmGaYQMeowSozDhcKK H8u7QzMl69H64dIIgqHVLrS SIyMCUi IOIbcKnwdm4zpV7bWr8+PGN kjVH6xCN3sD4aOyYcUiW3XZ jqO697EgHhqOZrFoajY10dY 3JvdXA+ PEQwNgk8NNUdqVovYV1vbPG lSQljOq0lSOE5IoUvUmFdHY adD7EsNDWloubyhqjwmTB2X DAuMDUw sE82Dy3dlUunCi1pZMEnLIS 6KRSmgWFbV4ZvgU9qCiTcGT NlZAGsL5VwvUNjGAzxP655K GxlZnQ7 JLQndiWlB3FhZYBaiTkwKuX 5c9K4Zb8EdFdcoBRmDB5zCn OdHAf6R4NbSbk1SACkuCmfY F5rdRLj DYujRk6hfHvenGsyKZ6xXVO vozahr332HtPsk0phKUFiwH WtOHdfDKK9E07mt8A9XFCcB DAwMDA7 jSG9bL2bmWwavmlnyDQzcSs towHdnNlxFApkXLcqL483FS YhdTqvYzFEGxb1L0JwBll2O CBzdHls IX4cdCFgDRoxXn7xsAdnmFt kRE9nLRFowcohs325MkVdv0 bmTAXipRBjNKnsNAL9W32zv 2E3UANh WCQsGUM1kYX8gS4rmTxfvpo gbGVmdDsgdmVydGljYWwtYW loM581JSZhxWbjBt9RWdh6E 1PdGiy5 LQVrxMtrYK3eiNXmMBaoRv0 tgNfwwOrbPT2uWTSkqokzc2 76JxLhc4lzOHVhcTXgDPruR ZY9F28x e4X1UBVrMXWdKAU1wHH8fN0 hbGlnbjogbGVmdDsgdmVydG nmHZgvQWjgG569UEKkqPeyZ lBheWVy OjwvdGQ+UH53dk68E9UqKig lFui1IYYzVDB8aFN0qF6eGI QlAGtzy3E6tVM7A7ZfeaAyv d2lm7tf YXBz (more content not included)... Normal [facility] Inpatient Clinical Summaryon 11-28-2022 Inpatient Clinical Summary [address] [address] Clinical Summary Person Information Name: DRISS COPE [facility] Age: 27 Years : 1995 Sex: Female PCP: CRUZ RODRÍGUEZ MD Marital Status: Single Race: White Ethnicity: Non- or Language: Chilean Visit Id: Visit Reason: CRAMPING, VAGINAL PAIN Speciality: Acuity: Obs Enc Type: OB Triage Med Service: Obstetrics Arrival: 11/27/2022 13:42:15 Discharge: 11/27/2022 22:26:00 Dispo Type: Short-Term Hosp as IP Address: [address] [facility] [id number] Provider Notes: Diagnosis: Problems Active (07/14/2022) Recurrent [...] Refills: 0. (more content not included)... Normal [facility] Inpatient Patient Summaryon 11-28-2022 Inpatient Patient Summary [place] [address] Patient Discharge Instructions PERSON INFORMATION Name: DRISS COPE Date of : 1995 Current Date: 11/27/2022 23:40:35 [facility] Admitting Physician: Fredi DORSEY MD Primary Care Physician: CRUZ RODRÍGUEZ MD PCP Comment: Discharge Diagnosis: Condition at Discharge: [...] to find a nearby participating provider. Comment: I, CANTLEY, DRISS M, have received the attached patient education materials/instructions [...] to serve you. Thank you for choosing [facility] Normal [facility] Insurance Correspondenceon 0 11-28-2022 Insurance Correspondence .[id number]#1.00 CD:127 Normal [facility] Nursing Assessmenton 023 Nursing Assessment .[id number] 020 [id number]#1.00 CD:127 Normal [facility] Transfer Documentson 023 Transfer Documents .[id number] [id number]#1.00 CD:127 Normal [facility] Transfer Documents .[id number] [id number]#1.00 CD:127 Normal [facility] Transfer Documents .[id number] [id number]#1.00 CD:127 Normal [facility] Comment on above: Other Comment: Not l abeled Transfer Documents [id number]#1.00 CD:127 Normal [facility] BB Draw & Holdon 11-27-2022 BB D&H Sample drawn for Blo od Ba Normal [facility] Comment on above: Performed By: #### 2 401348, 5490726, 2809944, 7293785, 4399195, 96034102, 2850724, 4998020, 11164880, 0897160, 78007769 ####[facility] [address] [place] [address] BUNon 11-27-2022 Urea nitrogen [Mass/Vol] 7 mg/dL Normal 5-21 [facility] Comment on above: Performed By: #### 2 921769, 5408350, 6789329, 7780157, 7925045, 88755443, 1786041, 3585517, 36351128, 9042242, 95202362 #### [facility] Laboratory [address] [place] [address] CBC w/Indiceson 11-27-2022 Erythrocyte distribution width (RBC) [Ratio] 12.9 % Normal 10.9-14.2 [facility] Comment on above: Performed By: #### 2 856943, 0436947, 7616928, 8100542, 0138587, 71900015, 3055131, 3049982, 03411415, 7088278, 49623948 ####[facility] [address] [place] [address] Hematocrit (Bld) [Volume fraction] 34.2 % Normal 34.0-46.0 [facility] Comment on above: Performed By: #### 2 591392, 9204501, 4709948, 3768759, 3894639, 44085466, 9507289, 5521478, 84373409, 7988783, 77792296 ####[facility] [address] [place] [address] Hemoglobin (Bld) [Mass/Vol] 11.0 g/dL Low 12.0-16.0 [facility] Comment on above: Performed By: #### 2 647766, 6568152, 8260714, 6269665, 8861675, 22184867, 3756299, 7155763, 20217109, 8555934, 12936901 ####[facility] [address] [place] [address] MCH (RBC) [Entitic mass] 27.3 pg Normal 27.0-34.0 [facility] Comment on above: Performed By: #### 2 126484, 8240794, 3113504, 1483338, 8704059, 39193252, 0891201, 8489509, 76512320, 6068026, 97826663 ####[facility] [address] [place] [address] MCHC (RBC) [Mass/Vol] 32.3 g/dL Normal 31.4-36.0 [facility] Comment on above: Performed By: #### 2 032951, 8356582, 1143466, 7308393, 6053228, 92039435, 8525246, 1781144, 21130358, 9534368, 96308761 ####[facility] [address] [place] [address] MCV (RBC) [Entitic vol] 84.6 fL Normal 80.0-100.0 [facility] Comment on above: Performed By: #### 2 521988, 6122377, 1322427, 2967863, 7150026, 65596505, 0671627, 4159401, 87589446, 6497630, 59329585 ####[facility] [address] [place] [address] Platelet mean volume (Bld) [Entitic vol] 8.2 fL Normal 6.4-10.8 [facility] Comment on above: Performed By: #### 2 112752, 3033320, 9162441, 2852417, 1198089, 91072297, 9069998, 2809040, 01003033, 0521195, 70542294 ####[facility] [address] [place] [address] Platelets (Bld) [#/Vol] 273.0 E9/L Normal 150.0-500.0 [facility] Comment on above: Performed By: #### 2 085172, 2448206, 2241798, 8863104, 5137188, 52989044, 1522112, 6060446, 27512139, 4987836, 86170166 ####[facility] [address] [place] [address] RBC (Bld) [#/Vol] 4.0 E12/L Low 4.3-5.9 [facility] Comment on above: Performed By: #### 2 442497, 6825215, 2012538, 7912234, 3669770, 36693267, 1368771, 0966829, 69700990, 5256136, 80578775 ####[facility] [address] [place] [address] WBC corrected for nucl RBC Auto (Bld) [#/Vol] 15.7 E9/L High 4.0-11.0 [facility] Comment on above: Result Comment: Slid e reviewed by ts Unable to obtain accurate platelet count due to platelet clumping. Platelet count estimate appears normal on slide.. Performed By: #### 2 051903, 4332986, 3813064, 9778968, 8180124, 74520277, 7830335, 8935149, 36593910, 6042501, 63415155 ####[facility] [address] [place] [address] CHEMISTRYOrdered By: SYSTEM SYSTEM on 11-27-2022 Free [...] m2 [facility] Chem S Globulin (S) [Mass/Vol] 4.0 g/dL Normal 1.4 - 4.0 gm/dL [facility] Remisol Potassium [Moles/Vol] 3.7 mmol/L Normal 3.5 - 5.3 mmol/L [facility] Remisol Protein [Mass/Vol] 7.1 g/dL Normal 6.0 - 7.8 gm/dL [facility] Sodium [Moles/Vol] 132 mmol/L Low 135 - 145 mmol/L [facility] Urate [Mass/Vol] 4.9 mg/dL Normal 2.2 - 7.4 mg/dL [facility] Urea nitrogen [Mass/Vol] 7 mg/dL Normal 5 - 21 mg/dL [facility] COAGULATIONOrdered By: Amol Jenkins on 11-27-2022 aPTT Coag (PPP) [Time] 25.3 s Normal 25.1 - 36.5 second(s) FT Auto Coag Fibrin+Fibrinogen fragments (S) [Mass/Vol] >10 and <40 *ABN* (11/27/22 3:14 PM) Invalid Interpretation Code <10 [facility] Fibrinogen Coag (PPP) [Mass/Vol] 539 mg/dL High 200 - 393 mg/dL FT Auto Coag INR Coag (PPP) [Relative time] 0.9 {INR} Invalid Interpretation Code FT Auto Coag PT Coag (PPP) [Time] 10.1 s Normal 9.4 - 1 2.5 second(s) FT Auto Coag Consent for Treatmenton Consent for Treatment [id number]#1.00C D:127 Normal [facility] Creatinineon 11-27-2022 Creatinine [Mass/Vol] 0.6 mg/dL Normal 0.5-1.3 [facility] Comment on above: Performed By: #### 2 153290, 7578200, 9909575, 3012679, 5751525, 26410101, 0220171, 2221453, 55847408, 4989364, 30752981 #### [facility] [address] [place] [address] FSPon 11-27-2022 Fibrin+Fibrinogen fragments (S) [Mass/Vol] >10 and <40 Abnormal <10 [facility] Comment on above: Performed By: #### 2 756767, 5166471, 4665209, 0008076, 4593913, 02530470, 7010396, 9456596, 17382549, 1522821, 65818178 ####[facility] [address] [place] [address] Fibrinogenon 11-27-2022 Fibrinogen Coag (PPP) [Mass/Vol] 539 mg/dL High 200-393 [facility] Comment on above: Performed By: #### 2 925903, 3601157, 6572838, 6500655, 0408322, 19145451, 5355060, 1115328, 79941436, 3120791, 30999340 #### [facility] [address] [place] [address] HEMATOLOGYOrdered By: Raquel Arteaga on 11-27-2022 Erythrocyte [...] 15.7 E9/L High 4.0 - 11.0 E9/L [facility] Comment on above: Result Comment: Slid e reviewed by ts Unable to obtain accurate platelet count due to platelet clumping. Platelet count estimate appears normal on slide.. Hep Func Panelon 11-27-2022 Bilirubin.indirect [Mass or moles/Vol] UTC Abnormal 0.1-0.9 [facility] Comment on above: Result Comment: Resu lt verified by [employer]. Performed result UT (Unable to Calculate) was sent as an Alpha code due the inability to calculate a valid numeric value. Performed By: #### 2 008048, 9941780, 8701996, 4930694, 3139699, 03844710, 8141715, 6910788, 74163756, 8103451, 78316308 ####[facility] [address] [place] [address] Albumin [Mass/Vol] 3.1 g/dL Low 3.3-5.0 [facility] Comment on above: Performed By: #### 2 900190, 7067089, 7376314, 7563921, 7530037, 22580094, 0223592, 1059607, 34696241, 2874012, 81720101 ####[facility] [address] [place] [address] Albumin/Globulin (S) [Mass conc ratio] 0.8 Low 1.1-2.2 [facility] Comment on above: Performed By: #### 2 513194, 2568466, 4411908, 3045240, 4318273, 94248506, 7251331, 2024145, 71890435, 7272172, 70669026 ####[facility] [address] [place] [address] ALP [Catalytic activity/Vol] 145 Int._Unit/L High 21-98 [facility] Comment on above: Performed By: #### 2 973678, 8685058, 0883257, 6056884, 6864315, 13395745, 1368425, 0290458, 42259073, 3114893, 08690860 ####[facility] [address] [place] [address] ALT No additional P-5'-P [Catalytic activity/Vol] 13 Int._Unit/L Normal 6-46 [facility] Comment on above: Performed By: #### 2 359858, 8142404, 3266617, 8608740, 5050453, 60655368, 1302546, 9682022, 25250273, 4415702, 01703058 ####[facility] [address] [place] [address] AST [Catalytic activity/Vol] 22 Int._Unit/L Normal 5-43 [facility] Comment on above: Performed By: #### 2 676669, 1590591, 9748806, 2461051, 6648210, 63084907, 6321988, 1645244, 88038502, 5150150, 75069318 ####[address] [address] Bilirubin [Mass/Vol] 1.0 mg/dL Normal 0.0-1.1 [facility] Comment on above: Performed By: #### 2 856045, 3903610, 3396073, 2989503, 5162600, 58109427, 5511726, 3628636, 51217978, 0194787, 08484966 ####[facility] [address] [place] [address] Bilirubin.direct [Mass/Vol] mg/dL Normal 0.1-0.4 [facility] Comment on above: Performed By: #### 2 282004, 1538427, 6640985, 7483169, 5706307, 56392612, 6972410, 1043504, 19613138, 2635100, 98939250 ####[address] [address] Globulin (S) [Mass/Vol] 4.0 g/dL Normal 1.4-4.0 [facility] Comment on above: Performed By: #### 2 647963, 1061744, 9314573, 8200420, 0150213, 15068968, 8730350, 3469090, 29610194, 9019344, 81980115 ####[facility] [address] [place] [address] Protein [Mass/Vol] 7.1 g/dL Normal 6.0-7.8 [facility] Comment on above: Performed By: #### 2 203683, 1925635, 7316787, 9466152, 1331410, 73781078, 8647657, 5470267, 00403593, 3952110, 22139593 ####[facility] [address] [place] [address] [place] 11-27-2022 Anion gap [Moles/Vol] 16 mmol/L Normal 6-16 [facility] Comment on above: Performed By: #### 2 245146, 0854262, 7058249, 3261746, 9537756, 25755305, 4759907, 1552241, 59437002, 1502739, 25555682 #### [facility] [address] [place] [address] Chloride [Moles/Vol] 102 mmol/L Normal 101-111 [facility] Comment on above: Performed By: #### 2 413711, 6927089, 7525600, 1129589, 5668067, 88796974, 6634474, 0145175, 04072673, 8606739, 20183391 #### [facility] [address] [place] [address] CO2 [Moles/Vol] 18 mmol/L Low 21-31 [facility] Comment on above: Performed By: #### 2 122099, 0540579, 4345471, 9132863, 9691477, 62039335, 4328982, 0464510, 94341815, 8054022, 81742349 #### [facility] [address] [place] [address] Potassium [Moles/Vol] 3.7 mmol/L Normal 3.5-5.3 [facility] Comment on above: Performed By: #### 2 151513, 5655953, 3958540, 0893450, 4928519, 80243555, 5053566, 5830345, 73963427, 0958301, 17991988 #### [facility] [address] [place] [address] Sodium [Moles/Vol] 132 mmol/L Low 135-145 [facility] Comment on above: Performed By: #### 2 514744, 5306273, 5880338, 2396130, 4385458, 51993187, 0934190, 6670510, 25879628, 4998452, 69156456 #### [facility] [address] [place] [address] PT & PTTon 11-27-2022 aPTT Coag (PPP) [Time] 25.3 second(s) Normal 25.1-36.5 [facility] Comment on above: Result Comment: Para meter [...] the same coagulation reagent and instrumentation as [facility] Currently there are no coagulation studies available worldwide for children to 14 days, and no normal ranges. Heparin therapeutic range (represented by Anti-Factor Xa activity of 0.2 - 0.4 U/mL) corresponds to PTT of 56.6 - 109.0 sec. Performed By: #### 2 996000, 7161266, 4291194, 5113233, 0942511, 50019801, 7634294, 3859099, 16698827, 4237793, 95556810 #### [facility] [address] [place] [address] INR Coag (PPP) [Relative time] 0.9 {INR} Invalid Interpretation Code [facility] Comment on above: Result Comment: INR results are specifically intended to assess patients stabilized on long-term Anticoagulation therapy suggested INR?s ?Less Intensive Anticoagulation? 2.0 ? 3.0 Conventional Range 3.0 ? 4.5 Performed By: #### 2 972567, 9525988, 5675477, 1691277, 8371903, 16176447, 3666465, 4945063, 35375190, 5690234, 26648166 #### [facility] [address] [place] [address] PT Coag (PPP) [Time] 10.1 second(s) Normal 9.4-12.5 [facility] Comment on above: Result Comment: 15 d [...] the same coagulation reagent and instrumentation as [facility]. Currently there are no coagulation studies available worldwide for children to 14 days, and no normal ranges. Performed By: #### 2 868214, 8878116, 1029547, 6195343, 7139011, 66054545, 5013853, 3370713, 53835603, 9887589, 85300228 #### [facility] [address] [place] [address] Thyroid IIon 11-27-2022 TSH Qn 1.65 m[IU]/L Normal 0.34-5.60 [facility] Comment on above: Performed By: #### 1 [id number] ####[facility] [address] [place] [address] Free T4 index Calc [Mass/Vol] 5.98 ng/dL Normal 5.90-13.10 [facility] Comment on above: Performed By: #### 1 [id number] ####[facility] [address] [place] [address] T4 [Mass/Vol] 7.5 microgram/dL Normal 4.6-9.1 [facility] Comment on above: Performed By: #### 1 [id number] ####[facility] [address] [place] [address] T4 uptake [Mass/Vol] 31.9 % Low 32.0-48.4 [facility] Comment on above: Performed By: #### 1 2709380 ####[facility] [address] [place] [address] UA With Cult Reflexon 2022 Bilirubin Ql (U) Negative Normal Negative [facility] Comment on above: Performed By: #### 1 [id number] ####[facility] [address] [place] [address] Clarity (U) CLEAR Normal Clear [facility] Comment on above: Performed By: #### 1 [id number] ####[address] [place] [address] Color (U) YELLOW Normal Yellow [facility] Comment on above: Performed By: #### 1 [id number] ####[address] [address] Epithelial cells.squamous LM.HPF (Urine sed) [#/Area] 3-4 Normal 0-2 [facility] Comment on above: Performed By: #### 1 [id number] ####[facility] [address] [place] [address] Glucose Test strip (U) [Mass/Vol] Negative Normal Negative [facility] Comment on above: Performed By: #### 1 [id number] ####[facility] [address] [place] [address] Hemoglobin Ql (U) 1+ Abnormal Negative [facility] Comment on above: Performed By: #### 1 [id number] ####[address] [place] [address] Ketones (U) [Mass/Vol] Negative Normal Negative [facility] Comment on above: Performed By: #### 1 [id number] ####[address] [place] [address] [place].plasma/Lithiu m.RBC (Bld) [Mass ratio] 4-20 Normal 0-3 [facility] Comment on above: Performed By: #### 1 [id number] ####[address] [place] [address] Nitrite Ql (U) Negative Normal Negative [facility] Comment on above: Performed By: #### 1 [id number] ####[address] [address] pH (U) 6.5 [pH] Invalid Interpretation Code 5.0-9.0 [facility] Comment on above: Performed By: #### 1 [id number] ####[address] [address] Protein (U) [Mass/Vol] Negative Normal Negative [facility] Comment on above: Performed By: #### 1 [id number] ####[address] [address] Specific gravity (U) [Rel density] 1.010 Invalid Interpretation Code 1.005-1.030 [facility] Comment on above: Performed By: #### 1 [id number] ####[address] [address] Type of Urine collection method Clean Catch Normal [facility] Comment on above: Performed By: #### 1 [id number] ####[address] [address] Urobilinogen Qn (U) 0.2 {Aspen'U}/dL Normal 0.0-1.0 [facility] Comment on above: Performed By: #### 1 [id number] ####[address] [place] [address] WBC Auto Ql (U) Negative Normal Negative [facility] Comment on above: Performed By: #### 1 [id number] ####[facility] [address] [place] [address] WBC LM.HPF (Urine sed) [#/Area] 0-5 Normal 0-5 [facility] Comment on above: Performed By: #### 1 [id number] ####[facility] [address] [place] [address] URINALYSISOrdered By: Rufus Jenkins on 11-27-2022 Bilirubin Ql (U) Negative (11/27/22 1:55 PM) Normal Negative [facility] UA Auto SS Clarity (U) Clear (11/27/22 [...] PM) Normal Negative [facility] UA Auto SS [place].plasma/Lithiu m.RBC (Bld) [Mass ratio] 4-20 /HPF Normal [...] Desc Clean Catch (11/27/22 1:55 PM) Normal [facility] UA Auto SS Urobilinogen Qn (U) 0.9192908 {Aspen'U}/dL Normal 0.0 - 1.0 EU/dL [facility] UA Auto SS WBC Auto Ql (U) Negative (11/27/22 1:55 PM) Normal Negative [facility] UA Auto SS WBC LM.HPF (Urine sed) [#/Area] 0-5 /HPF Normal 0-5/HPF [facility] UA Auto SS Uric Acidon 11-27-2022 Urate [Mass/Vol] 4.9 mg/dL Normal 2.2-7.4 [facility] Comment on above: Performed By: #### 2 [id number], [id number], 8369635, 1908837, 0948057, 87898760, 7996860, 3939941, 54108143, 0452776, [id number] ####[facility] [address] [place] [address] eGFRon 11-27-2022 GFR/1.73 sq M.predicted among blacks MDRD (S/P/Bld) [Vol rate/Area] mL/min/{1.73_m2} Normal >=59 [facility] Comment on above: Order Comment: Order added by Discern Expert. Result Comment: eGFR is race adjusted. AA=. Performed By: #### 2 786908, 6935383, 4278162, 0541669, 8608807, 07578783, 8140775, 2688328, 68898545, 9749213, [id number] #### [facility] [address] [place] [address] GFR/1.73 sq M.predicted among non-blacks MDRD (S/P/Bld) [Vol rate/Area] mL/min/{1.73_m2} Normal >=59 [facility] Comment on above: Order Comment: Order added by Discern Expert. Result Comment: Pillowcase Folder jose kidney disease could be indicated at eGFR's of less than 60 mL/min/1.73m2. Kidney failure is indicated at less than 15 mL/min/1.73m2. Performed By: #### 2 802566, 7996924, 4577882, 8900278, 0869993, 56861878, 9848433, 7955018, 22535677, 6127313, 26137058 #### [facility] [address] [place], [place] [address]ros[place] [address] Coding Summary.on 09-27-2022 Coding Summary. CD:[id number] Gh0 bWw+PGhlYWQ+TU6DMZHaY58 hlFSvmJ7EM9qEOO0ZLPPIRM IBTQ5TJM9ilPH6JJqpL0Pij iAv XfcoxKAcEL86GGe8PPP6yKp pTPhzlJ6qkTAaR8c1PgAwTI 17qC57DQvyWYWqCeF2YrLwn jsgbWFy O3fwNoUykASsQeh+PHRhYmx lIHdpZHRoPScxMDAlJyBzdH ghRT4gHv6aNKTmLVBofHzux HNlOiBj o2nqRREnMXzoKX2ihAbcI9I cwYB8CUPni6d1Vo33rZU+PH IhGYG1dLorPJlad439IuIpj 6dqOEI3 eABmMPinUFD4L97iz1V4HHA jJIHsJCN0dPB8aH0peNsfcu kxL3AlhOEeQiY9OER8qBHyf D8rfSji duocoP7gRaq+M90ACC5IPBJ HAQ3WSpu8U5ByWfmypUE+PC 97QADdSX97mGXyiSBkl6yaj Lf6OzAb HYGiYSL7gMpjDGnel7AlNCT uK34lcNXlq2P2CKOyuByukF ZcMmOklOU4dK0fXSmoerwjk 2hvdzsn Wpafd5iowf96vM23T40nMCk gGIRaDWP4FOKkYRDjyMirap 5byW4nVh3+LYoec4edo7oad Gu1VkBc KKDdcdZcmPgdCZQ9s3DkBk9 6B3UthEouh4KxRzh1to48aZ Exg3D4uUD3UGwfZREbpY3vC WxlZnQ6 ZCVnQtUygJ20xTDuVWewYa3 frUnrvAeoKD8cOWJjozjyOV QslM7vTJBlcNOcfUwpPG4uS TBpbjtm v462RfAhXLI9IWJasWLtL6E jzK5lBlSoWIVuIFLtW4FcfZ RiZSsrI974FDlvTyN3KFTox eOvA0Ky QYXgvDseVjD5y3V7Mb7Fc4C bsgssTYJ3YJfeUIXaDfEvIb TbEoE7E6RuUtn0OROohGxvK R7wY1Bi LSRknyjnrpvmfMR4LRUiPLL txY48fLDeIJabPd4gb9I4x8 50EEIyTVEroF52Jq9kuYpnI TBwdCBU tZ8ybcvvv3qkfoxgItCdKHL kORb1LEf4WLIieTxsWyBrRP O1SmX6XYJ1tCBhaO0wqRmec irroM6i Oyc+J13bqP1gIYY2EOO0nap jLCZcflCcET96DI76U4MzUg wvdGFibGU+PGRpdiBzdHlsZ R1nIeQe z9dsz0HrBSahN3YrNXKsOSb oHvd6WAUuTCJ8rEK5zY9lOZ EiMNnjm1C1fXX9V0UwvdSll j4wg9ok DDQvOZibY10gzNUbc1V9TFX gvDU7LNAqvWytTrTfvJ67Lv c+AJDqzFbdj9FqQtdmc5all 8iikBq1 VxAyVOEhavVmuYnmHIO5k1D jFh33H32yNNvzDUQuOFAzQN WdCNGzmDdxfn1ygI6iOj4+P GNvbCB3 wCJ6oQ6lLAQwPuP6ZMpnM06 3YeJfyQRvJkvii5gzk7ohjX m7EtIjBPLrtbHadWvjGGH7k 8FsYw85 P11kRAtgDDKoELNkGKWqIBT ujYowzh4evW1nRd7+PC9jb2 gwzn80fO32uXJ+NEQjABD4t WxlPSdw WUGsaU8gQMcuOhY2AZShBuO ieU06xUFxKCsoWo1tkOovjD bvAU0cJRNqxorik789ApRpe 2xkIDEw vOSmYHchRGT0N71pf7V5AIK zUEWpQXL3nDB0tR2vqSrewf ogbGVmdDsgdmVydGljYWwtY CfxY217 IHRvcDsnPlBhdGllbnQgTmF eYAf0Z9CoKxs8LBBjzBgrCV 1vbIWvLFzdNj0maAveuXlcU I9uTOUj dutmt555BzCpr7ftNWHzxMP fXEyeRSY4R61eh3M9FIYsMS IoUME4wTC9aN4myCgbropdr GVmdDsg hqQbhCruLPonVYwcI730FTS ixAwlAtSoreOkPOScwEX9WQ 88CI48gQQoh8Q9aKX4U2SaN GRpbmct ybwovML1SZWfMAOepM24Sj4 mpWfkPq1nXIGhRGE8VOKwoS SwI4DgwZ6nBjOmSPDuLFQhU 3RleHQt BQbmA571WTvtVhD8WPQzijM kU6FiBVIsfIceIyC0d1G0Il 3OO6E6LC40JM82dGBmi8P8n PD1W6Ng OQGafcuzccqbwBL9LKRuUMG uiY87Tu5mxOpbVn0xAVYcFO J4XVEkkRRlX3RiwL8oVjNyW DAwMDAw T6WlnCRmVLrfC545UGraCcW 1FKPpctPoL4QySFWptTdlXm E6s5K2Mz8SFOr5AB32LV51z YGpz8I0 bUH3T8YcQEMtohodqrtlwCQ 4BMSgGFPbpU36Am8rjFjaCt 4lEADbNAT9VGVacMVaL3Nnl E2zQyOm BRLwATGsR3MptCPdCRdvF41 2XLkoPyH5TAMkliJpW6XxVS JhnPapToC6x6K7An1WZBWiW F75BNC9 iIS0KF32HE00M5XcDtaegES ibGU+PHRhYmxlIHdpZHRoPS ltZYFnFqTodNgnTT8iYf7oC GVyLWNv qCyfmJVkJdDhp7nkPNCbGDy pGI0csLrdH3YoaTI4WGFnr5 t5Uj19X00nZ6EixID+PGNvb HM9cCW0 fH7nAkDfMfG1LLirV600OoI znIYeUhbca8naa2aybZu5An R9VCAbwnEifGxiLRM0g9StT v58F01d IHdpZHRoPSIxNSUiIHZhbGl ecy2laU5zUg6+BIDdlNO0jG Z5oH8mAqWnMxI5IIhsE783Q nRvcCIv Zsckt9fle9nrqTv1EjYfGRY lwbPaeQzhZZO9g5LpZu71W2 RagGgyb6PkGgo5kw78wVPef 3V6cDX8 Y9OwLCMdrxsfnJPodCtrVZ2 aJLAidamwUMJagA9fHNOgX2 q8HbIjTnG7ODgdM8WvgdB6I DEwcHQg FSxgKBH8K60lc3W1CGRqJYY gXCJ7aSR8xV1qaYwdipjwlN VmdDsgdmVydGljYWwtYWxpZ 246IHRv yHwoIKExfQ8cOFQatUTsgZf gXP7oXERvdyilWtNRFsMLGD ylBEVJLTfYEkFAKD03NO74u YRjr4B6 cWU3F5UbHYAfjvmlcsmqmGU 9ZOFpHKWsfV52eMDyCNavGz 5ti2S1h266KPIhAGOseL75C m0inEkw UFRxzQAPoQ8pgmtqf0xvdtt yHcXaCHZfSVx5JQe7VKLmmG vhKmFeXAL5CtT9HTT9aBFic C5eeCmq utmjyE7qSwz+MDQvMDgvMTk 5NTwvdGQ+XPQdGQS0pUwpQJ mpIYWcpW0rPGMmQ9h5UhHmN aK2LTue Z5MpDBTittbaEo81aV2pKhP lPcJ1HGitD2EhzdD5KZDgyO CrSMybJUZ7D06ti9E3LYBlF DAwMDA7 aZD3iY6saTeldiycxDXgxEh mgaQihNbyOCvbOKtwP404AC HflLbnAoS7AJhkAWIkIW19P H14bGDx n4X0dFI0I0RjDPRbbcklyco jpZQ8UDGhAQRdyY75cAFhJF ifUf2it6S3h639RYEfXJZur E59Kk3q iYetRYPlpELYmP3zgyrlk7u cmvwvDcKsZOPuXIn6YBk5XS IwrYcsMvRsYNN6LaX8QRZ2i FKasO9g qOkxjragzR1vGbm+RmVtYWx uHF90QX75hCNpv9S8xRG0L5 ToXPHbjaakmtehfQX8LVWfI DUwaW47 oFXoZNbtHf2sb6K7k963CKM iSNHnbZ76Sw7gnXwyLEYbzL DDoC7hdipag6lfcbgiFsEcD DAwMDt0 LZw4TOCqrXhkEqIgXXF4LqR 0ONK1wEXmpB1izKdfdxybeI 9wOyc+L4D5yLS1wSRljWrtj GQ+PC90 qp67L5MpZjajEtd1DYVaSGV 0bRI5qV4sCMAnATqfn1Y1oD R9B7VphoSxpv2xa6nzNRDxF KdyI34i kBVsk0X7YCFioEY2AMUufEr kAsTliA49Jmg+PGNvbGdyb3 JtGajaa7ffh5cxcTb8RmJmA SIgdmFs eMftZSK3t0GpRx66K27tYLt pZHRoPSIzMCUiIHZhbGlnbj 5jnZ6eXs2+GEXwvCN1dFE5z D4tOyCj JkW0UKxzC206ZgGodRUgYci bp3qtg7akaUl3KoAbDBNjlo OkqFsuESO5u3HfFs25A0Qpx Urqi0Ld Jdc1dn67kXHtp5E5nVU4D2H eBEKstnnyuYCbtKflRO4dID PptexmMLGncW0kUYZeF5q6W iAwLjA1 NUsiL1EajdF3LRVnpGBlKZS fmLDQbB9dkjrff2aiwsknWk LzMDMfRVa4JYt6AEQfsMdiF iBsZWZ0 NgH5XRM2bJLdgH5qmFaqykm caI1sCjs+QAi9t0ffgXAbFS 8jgEH2CW57LY29lUSeb6X8m JU7R2Pf PZXzcodrqairuSJ1ZNNfMTB zcX45Tt9dgItzXv5bHSMuRT D8VXEgyDRxB7WllY0sAtSfU DAwMDAw I7KsvVDyZFtwE163ZCqtNdP 8WHYwqcFmP4ExJYJaeMsaIp N4d5L6Uf8WNA20CI31IM33x NCya4A5 oRE4O7VrOXXoqzbbayksnOH 0NVItODUlwW69Aw9mbIsgPr 9hJCEnRUH9ELCtmHGeF3Dse P1mXoAb XSHaDWBrD9HbgCJmYBxdJ62 5PQcaTeD6PHSxqsKtS4AcTS BlxQmeHkX2w2A4Yj7XZo18U P95OH15 qJObc7O6mNT6D5UnNUQyxjv nktqrkXS1DCGcTGYlrQ91Ht 3yjKqxIf6dSMYnJZD7PAKzv RZmH4Br iM2vWzMzGSWtLANmY9AxrRQ qSZnpE041GXlsYbJ3DYSiwq GlR5RqIDOheNjoBfC9b8C1F z8XQOcg yyt3Q1KzWaoanGZ+IC24IBN oMD26eIAdyGKdd1zkxJm9Pm OfLALdROK1iBiiPKboz1KkY QQpD07e bGFw (more content not included)... Normal [facility] Consent for Treatmenton 08-27 Consent for Treatment [id number] D:127 Normal [facility] Gest Scr Glu 1 Hron 09-20-20 Glucose [Mass/Vol] 140 mg/dL Normal 55-140 [facility] Comment on above: Result Comment: Posi tive Screen =1 HR > 140mg/dL Performed By: #### 3 [id number], [id number] ####[facility] [address] [place] [address] Hct & Hgbon 09-20-2022 Hematocrit (Bld) [Volume fraction] 29.7 % Low 34.0-46.0 [facility] Comment on above: Performed By: #### 3 [id number], [id number] ####[address] [place] [address] Hemoglobin (Bld) [Mass/Vol] 10.1 g/dL Low 12.0-16.0 [facility] Comment on above: Performed By: #### 3 [id number], [id number] ####[address] [place] [address] Physician Orderon 09-20-2022 Physician Order [id number] [facility] [id number]#[id number] CD:127 Normal [facility] Complete Blood Count Auto Di ffon 08-23-2022 Basophils (Bld) [#/Vol] 0.0 10*3/uL Normal 0.0-0.2 [facility] Comment on above: Result Comment: PERF ORMED BY: [place] [address] PATHOLOGIST HAND SOLE SEWER JESUS JIN M.D. Performed By: #### M G, CMP, CBC #### [facility] [address] [place] [address] [place] Basophils/100 WBC (Bld) 0.4 % Normal . [facility] Comment on above: Performed By: #### M G, CMP, CBC #### [facility] [address] [place] [address] [place] Eosinophils (Bld) [#/Vol] 0.0 10*3/uL Normal 0.0-0.45 [facility] Comment on above: Performed By: #### M G, CMP, CBC #### [facility] [address] [place] [address] [place] Eosinophils/100 WBC (Bld) 0.5 % Normal . [facility] Comment on above: Performed By: #### M G, CMP, CBC #### [facility] [address] [place] [address] Erythrocyte distribution width (RBC) [Ratio] 13.0 % Normal 11.9-15.3 [facility] Comment on above: Performed By: #### M G, CMP, CBC #### [facility] [address] [place] [address] [place] Hematocrit (Bld) [Volume fraction] 33.9 % Low 34.0-46.4 [facility] Comment on above: Performed By: #### M G, CMP, CBC #### [facility] [address] [place] [address] [place] Hemoglobin (Bld) [Mass/Vol] 11.3 g/dL Low 11.8-15.4 [facility] Comment on above: Performed By: #### M G, CMP, CBC #### [facility] [address] [place] [address] [place] Lymphocytes (Bld) [#/Vol] 1.7 10*3/uL Normal 1.00-4.8 [facility] Comment on above: Performed By: #### M G, CMP, CBC #### [address] Lymphocytes/100 WBC (Bld) 18.4 % Normal . [facility] Comment on above: Performed By: #### M G, CMP, CBC #### [facility] [address] MCH (RBC) [Entitic mass] 28.8 pg Normal 24.7-34.3 [facility] Comment on above: Performed By: #### M G, CMP, CBC #### [address] MCV (RBC) [Entitic vol] 86.5 fL Normal 80-100 [facility] Comment on above: Performed By: #### M G, CMP, CBC #### [address] Mean Corpuscular HGB Conc 33.3 g/dL Normal 32.0-35.0 [facility] Comment on above: Performed By: #### M G, CMP, CBC #### [place] [address] [place] Monocytes (Bld) [#/Vol] 0.7 10*3/uL Normal 0.0-0.8 [facility] Comment on above: Performed By: #### M G, CMP, CBC #### [place] [address] [place] Monocytes/100 WBC (Bld) 7.7 % Normal . [facility] Comment on above: Performed By: #### M G, CMP, CBC #### [facility] [address] [place] [address] [place] Neutrophils (Bld) [#/Vol] 6.8 10*3/uL Normal 1.8-7.7 [facility] Comment on above: Performed By: #### M G, CMP, CBC #### [place] [address] [place] Neutrophils/100 WBC (Bld) 73.0 % Normal . [facility] Comment on above: Performed By: #### M Yomaira, CMP, CBC #### [facility] [address] [place] [address] Nucleated RBC/100 WBC (Bld) [Ratio] 0.1 % Normal 0-0.5 [facility] Comment on above: Performed By: #### M Yomaira, CMP, CBC #### [address] Platelet mean volume (Bld) [Entitic vol] 8.1 fL Normal 6.3-10.7 [facility] Comment on above: Performed By: #### M Yomaira, CMP, CBC #### [address] Platelets (Bld) [#/Vol] 305 10*3/uL Normal 150-450 [facility] Comment on above: Performed By: #### Daniel Burnette, CMP, CBC #### [address] RBC (Bld) [#/Vol] 3.92 10*6/uL Normal 3.60-5.00 [facility] Comment on above: Performed By: #### M Yomaira, CMP, CBC #### [address] WBC (Bld) [#/Vol] 9.3 10*3/uL Normal 4.5-11.0 [facility] Comment on above: Performed By: #### M Yomaira, CMP, CBC #### [address] Comprehensive Metabolic Pane siomara 08-23-2022 Albumin [Mass/Vol] 3.4 g/dL Normal 3.2-5.5 [facility] Comment on above: Performed By: #### M Yomaira, CMP, CBC #### [address] Albumin/Globulin [Mass ratio] 1.2 {ratio} Normal [facility] Comment on above: Performed By: #### M Yomaira, CMP, CBC #### [facility] [id number] [facility] ALP [Catalytic activity/Vol] 56 U/L Normal 32-92 [facility] Comment on above: Performed By: #### M Yomaira, CMP, CBC #### [facility] [address] [place] [address] [facility] ALT [Catalytic activity/Vol] 26 U/L Normal 10-60 [facility] Comment on above: Performed By: #### M Yomaira, CMP, CBC #### [facility] [address] Anion gap [Moles/Vol] 12.9 mmol/L Normal 6.0-15.0 [facility] Comment on above: Performed By: #### M Yomaira, CMP, CBC #### [facility] [address] AST [Catalytic activity/Vol] 22 U/L Normal 10-42 [facility] Comment on above: Performed By: #### M Yomaira, CMP, CBC #### [facility] [address] Bilirubin [Mass/Vol] 1.0 mg/dL Normal 0.3-1.2 [facility] Comment on above: Performed By: #### M Yomaira, CMP, CBC #### [facility] [address] Calcium [Mass/Vol] 9.2 mg/dL Normal 8.2-10.2 [facility] Comment on above: Performed By: #### M Yomaira, CMP, CBC #### [facility] [address] [place] [id number] [place] Chloride [Moles/Vol] 100 mmol/L Normal 95-114 [facility] Comment on above: Performed By: #### M Yomaira, CMP, CBC #### [facility] [address] [place] [place] CO2 [Moles/Vol] 23.0 mmol/L Normal 22.0-30.0 [facility] Comment on above: Performed By: #### Daniel Burnette, CMP, CBC #### [facility] [address] Creatinine [Mass/Vol] 0.53 mg/dL Normal 0.44-1.03 [facility] Comment on above: Performed By: #### M Yomaira, CMP, CBC #### [facility] [address] [place] [address] [place] Estimated GFR ( Chela > 60 Normal [facility] Comment on above: Result Comment: GFR estimated reference range: According to KDOQI guidelines, <60 ml/min/1.73m2 is sufficient to diagnose a patient with chronic kidney disease. Performed By: #### M Yomaira, CMP, CBC #### [facility] [address] Estimated GFR (Non- Am > 60 Normal [facility] Comment on above: Performed By: #### M Yomaira CMP, CBC #### [facility] [address] Globulin (S) [Mass/Vol] 2.9 g/dL [facility] Comment on above: Performed By: #### M Yomaira, CMP, CBC #### [facility] [address] Glucose [Mass/Vol] 85 mg/dL Normal 70-100 [facility] Comment on above: Result Comment: Jal Glucose Reference Range is dependent on time and content of last meal. Glucose of more than 200 mg/dL in a nonstressed, ambulatory subject supports the diagnosis of Diabetes Mellitus. ADA recommended reference range Performed By: #### M G, CMP, CBC #### [facility] [address] Potassium [Moles/Vol] 3.9 mmol/L Normal 3.5-5.1 [facility] Comment on above: Performed By: #### M G, CMP, CBC #### [facility] [address] [id number] [facility] Protein [Mass/Vol] 6.3 g/dL Normal 6.1-7.9 [facility] Comment on above: Performed By: #### M G, CMP, CBC #### [facility] [address] [id number] [facility] Sodium [Moles/Vol] 132 mmol/L Low 136-146 [facility] Comment on above: Performed By: #### M Yomaira, CMP, CBC #### [facility] [address] [place] [id number] [facility] Urea nitrogen [Mass/Vol] 5 mg/dL Low 9-23 [facility] Comment on above: Performed By: #### M Yomaira, CMP, CBC #### [facility] [address] [place] [id number] [facility] Magnesiumon 08-23-2022 Magnesium [Mass/Vol] 1.6 mg/dL Normal 1.6-2.6 [facility] Comment on above: Result Comment: PERF ORMED BY: [place] [address] PATHOLOGIST HAND SOLE SEWER JESUS JIN M.D. Performed By: #### M Yomaira, CMP, CBC #### [facility] [address] [id number] [facility] CHEMISTRYOrdered By: SYSTEM SYSTEM on 07-14-2022 Albumin [Mass/Vol] 3.6 g/dL Normal 3.3 - 5.0 gm/dL [facility] Albumin/Globulin [Mass ratio] 1.1 {ratio} Normal [...] 0.6 mg/dL Normal 0.1 - 0.9 mg/dL [facility] Calcium [Mass/Vol] 8.9 mg/dL Normal 8.9 - 11. 1 mg/dL [facility] Chloride [Moles/Vol] 107 mmol/L Normal 101 - 1 11 mmol/L [facility] CO2 [Moles/Vol] 22 mmol/L Normal 21 - 31 mmol/L [facility] Creatinine [Mass/Vol] 0.6 mg/dL Normal 0.5 - 1.3 mg/dL [facility] GFR/1.73 sq M.predicted among blacks MDRD (S/P/Bld) [Vol rate/Area] mL/min/1.73 m2 Normal >=59mL/min/1 .73 m2 [facility] [place] S GFR/1.73 sq M.predicted among non-blacks MDRD (S/P/Bld) [Vol rate/Area] mL/min/1.73 m2 Normal >=59mL/min/1 .73 m2 [facility] S Globulin (S) [Mass/Vol] 3.3 g/dL Normal 1.4 - 4.0 gm/dL [facility] Glucose [Mass/Vol] 99 mg/dL Normal 55 - 199 mg/dL [facility] Potassium [Moles/Vol] 3.5 mmol/L Normal 3.5 - 5.3 mmol/L [facility] Protein [Mass/Vol] 6.9 g/dL Normal 6.0 - 7.8 gm/dL [facility] Sodium [Moles/Vol] 136 mmol/L Normal 135 - 145 mmol/L [facility] Urea nitrogen [Mass/Vol] 8 mg/dL Normal 5 - 21 mg/dL [facility] Urea nitrogen/Creatinine [Mass ratio] 13 mg/mg Normal 10 - 20 [facility] HEMATOLOGYOrdered By: SYSTEM SYSTEM on 07-14-2022 [...] - 11.0 E9/L [facility] HemeAutoSS URINALYSISOrdered By: Veena Gilliam on 07-14-2022 Bacteria LM Ql (Urine sed) [...] [facility] UA Auto SS Hemoglobin Ql (U) Trace *ABN* (07/14/22 5:00 AM) Invalid Interpretation Code Negative [facility] UA Auto SS Ketones (U) [Mass/Vol] Negative (07/14/22 5:00 AM) Normal Negative [facility] UA Auto SS [place].plasma/Lith[place] m.RBC (Bld) [Mass ratio] 0-3 /HPF Normal 0-3/HPF [facility] UA Auto SS Mucus Ql (Urine sed) Trace (07/14/22 5:00 AM) Normal [facility] UA Auto SS Nitrite Ql (U) Negative (07/14/22 5:00 AM) Normal Negative [facility] UA Auto SS pH (U) 6.0 *NA* (07/14/22 5:00 AM) Invalid Interpretation Code 5.0 - 9.0 [facility] UA Auto SS Protein (U) [Mass/Vol] Negative (07/14/22 5:00 AM) Normal Negative [facility] UA Auto SS Specific gravity (U) [Rel density] 1.020 *NA* (07/14/22 5:00 AM) Invalid Interpretation Code 1.005 - 1.030 [facility] UA Auto SS UA Spec Desc Clean Catch (07/14/22 5:00 AM) Normal [facility] UA Auto SS Urobilinogen Qn (U) [id number] {[place]'U}/dL Normal 0.0 - 1.0 EU/dL [facility] UA Auto SS WBC Auto Ql (U) Negative (07/14/22 5:00 AM) Normal Negative [facility] UA Auto SS WBC LM.HPF (Urine sed) [#/Area] 0-5 /HPF Normal 0-5/HPF [facility] UA Auto SS Complete Blood Count Auto Di ffon 05-16-2022 Basophils (Bld) [#/Vol] 0.0 10*3/uL Normal 0.0-0.2 [facility] Comment on above: Order Comment: Reaso n for Exam Encounter for care in first trimester of first preg Result Comment: PERF ORMED BY: [place] [address] PATHOLOGIST HAND SOLE SEWER JESUS JIN M.D. Performed By: #### R SD W RFX, VZIGG, RUBELLA IGG, HIV SCREEN, HBSAG #### [facility] , #### CUU, CBC, HCGQNT #### [facility] [address] [place] [address] Basophils/100 WBC (Bld) 0.5 % Normal . [facility] Comment on above: Order Comment: Reaso n for Exam Encounter for care in first trimester of first preg Performed By: #### R SD W RFX, VZIGG, RUBELLA IGG, HIV SCREEN, HBSAG #### [facility] , #### CUU, CBC, HCGQNT #### [facility] [address] [place] [address] Eosinophils (Bld) [#/Vol] 0.1 10*3/uL Normal 0.0-0.45 [facility] Comment on above: Order Comment: Reaso n for Exam Encounter for care in first trimester of first preg Performed By: #### R SD W RFX, VZIGG, RUBELLA IGG, HIV SCREEN, HBSAG #### [facility] , #### CUU, CBC, HCGQNT #### [facility] [address] [place] [address] [place] Eosinophils/100 WBC (Bld) 0.7 % Normal . [facility] Comment on above: Order Comment: Reaso n for Exam Encounter for care in first trimester of first preg Performed By: #### R SD W RFX, VZIGG, RUBELLA IGG, HIV SCREEN, HBSAG #### [facility] , #### CUU, CBC, HCGQNT #### [address] Erythrocyte distribution width (RBC) [Ratio] 13.0 % Normal 11.9-15.3 [facility] Comment on above: Order Comment: Reaso n for Exam Encounter for care in first trimester of first preg Performed By: #### R SD W RFX, VZIGG, RUBELLA IGG, HIV SCREEN, HBSAG #### [facility] , #### CUU, CBC, HCGQNT #### [address] Hematocrit (Bld) [Volume fraction] 37.8 % Normal 34.0-46.4 [facility] Comment on above: Order Comment: Reaso n for Exam Encounter for care in first trimester of first preg Performed By: #### R SD W RFX, VZIGG, RUBELLA IGG, HIV SCREEN, HBSAG #### [facility] , #### CUU, CBC, HCGQNT #### [address] Hemoglobin (Bld) [Mass/Vol] 12.7 g/dL Normal 11.8-15.4 [facility] Comment on above: Order Comment: Reaso n for Exam Encounter for care in first trimester of first preg Performed By: #### R SD W RFX, VZIGG, RUBELLA IGG, HIV SCREEN, HBSAG #### [facility] , #### CUU, CBC, HCGQNT #### [address] Lymphocytes (Bld) [#/Vol] 2.0 10*3/uL Normal 1.00-4.8 [facility] Comment on above: Order Comment: Reaso n for Exam Encounter for care in first trimester of first preg Performed By: #### R SD W RFX, VZIGG, RUBELLA IGG, HIV SCREEN, HBSAG #### [facility] , #### CUU, CBC, HCGQNT #### [address] Lymphocytes/100 WBC (Bld) 24.2 % Normal . [facility] Comment on above: Order Comment: Reaso n for Exam Encounter for care in first trimester of first preg Performed By: #### R SD W RFX, VZIGG, RUBELLA IGG, HIV SCREEN, HBSAG #### [facility] , #### CUU, CBC, HCGQNT #### [address] MCH (RBC) [Entitic mass] 28.4 pg Normal 24.7-34.3 [facility] Comment on above: Order Comment: Reaso n for Exam Encounter for care in first trimester of first preg Performed By: #### R SD W RFX, VZIGG, RUBELLA IGG, HIV SCREEN, HBSAG #### [facility] , #### CUU, CBC, HCGQNT #### [address] MCV (RBC) [Entitic vol] 85.0 fL Normal 80-100 [facility] Comment on above: Order Comment: Reaso n for Exam Encounter for care in first trimester of first preg Performed By: #### R SD W RFX, VZIGG, RUBELLA IGG, HIV SCREEN, HBSAG #### [facility] , #### CUU, CBC, HCGQNT #### [address] Mean Corpuscular HGB Conc 33.5 g/dL Normal 32.0-35.0 [facility] Comment on above: Order Comment: Reaso n for Exam Encounter for care in first trimester of first preg Performed By: #### R SD W RFX, VZIGG, RUBELLA IGG, HIV SCREEN, HBSAG #### [facility] , #### CUU, CBC, HCGQNT #### [facility] [address] [place] [address] [place] Monocytes (Bld) [#/Vol] 0.8 10*3/uL Normal 0.0-0.8 [facility] Comment on above: Order Comment: Reaso n for Exam Encounter for care in first trimester of first preg Performed By: #### R SD W RFX, VZIGG, RUBELLA IGG, HIV SCREEN, HBSAG #### [facility] , #### CUU, CBC, HCGQNT #### [place] [address] [place] Monocytes/100 WBC (Bld) 9.1 % Normal . [facility] Comment on above: Order Comment: Reaso n for Exam Encounter for care in first trimester of first preg Performed By: #### R SD W RFX, VZIGG, RUBELLA IGG, HIV SCREEN, HBSAG #### [facility] , #### CUU, CBC, HCGQNT #### [place] [address] [place] Neutrophils (Bld) [#/Vol] 5.5 10*3/uL Normal 1.8-7.7 [facility] Comment on above: Order Comment: Reaso n for Exam Encounter for care in first trimester of first preg Performed By: #### R SD W RFX, VZIGG, RUBELLA IGG, HIV SCREEN, HBSAG #### [facility] , #### CUU, CBC, HCGQNT #### [facility] [address] [place] [address] [place] Neutrophils/100 WBC (Bld) 65.5 % Normal . [facility] Comment on above: Order Comment: Reaso n for Exam Encounter for care in first trimester of first preg Performed By: #### R SD W RFX, VZIGG, RUBELLA IGG, HIV SCREEN, HBSAG #### [facility] , #### CUU, CBC, HCGQNT #### [facility] [address] Nucleated RBC/100 WBC (Bld) [Ratio] 0.0 % Normal 0-0.5 [facility] Comment on above: Order Comment: Reaso n for Exam Encounter for care in first trimester of first preg Performed By: #### R SD W RFX, VZIGG, RUBELLA IGG, HIV SCREEN, HBSAG #### [facility] , #### CUU, CBC, HCGQNT #### [facility] [address] Platelet mean volume (Bld) [Entitic vol] 7.9 fL Normal 6.3-10.7 [facility] Comment on above: Order Comment: Reaso n for Exam Encounter for care in first trimester of first preg Performed By: #### R SD W RFX, VZIGG, RUBELLA IGG, HIV SCREEN, HBSAG #### [facility] , #### CUU, CBC, HCGQNT #### [place] [address] [place] Platelets (Bld) [#/Vol] 347 10*3/uL Normal 150-450 [facility] Comment on above: Order Comment: Reaso n for Exam Encounter for care in first trimester of first preg Performed By: #### R SD W RFX, VZIGG, RUBELLA IGG, HIV SCREEN, HBSAG #### [facility] , #### CUU, CBC, HCGQNT #### [facility] [address] [place] [address] [place] RBC (Bld) [#/Vol] 4.45 10*6/uL Normal 3.60-5.00 [facility] Comment on above: Order Comment: Reaso n for Exam Encounter for care in first trimester of first preg Performed By: #### R SD W RFX, VZIGG, RUBELLA IGG, HIV SCREEN, HBSAG #### [facility] , #### CUU, CBC, HCGQNT #### [facility] [address] WBC (Bld) [#/Vol] 8.4 10*3/uL Normal 4.5-11.0 [facility] Comment on above: Order Comment: Reaso n for Exam Encounter for care in first trimester of first preg Performed By: #### R SD W RFX, VZIGG, RUBELLA IGG, HIV SCREEN, HBSAG #### [facility] , #### CUU, CBC, HCGQNT #### [facility] [address] HCG,Quantitativeon 2 HCG,Quantitative 706341.00 m[iU]/mL Normal [facility] Comment on above: Order Comment: Reaso n for Exam Encounter for care in first trimester of first preg Result Comment: Appr oximate Approximate hCG Gestational Age Range (mIU/ml) (weeks) 0.2-1 5-50 1-2 50-500 2-3 100-5,000 3-4 500-10,000 4-5 1,000-50,000 5-6 10,000-100,000 6-8 15,000-200,000 8-12 10,000-100,000 PERFORMED BY: [place] [address] PATHOLOGIST HAND SOLE SEWER JESUS JIN M.D. Performed By: #### R SD W RFX, VZIGG, RUBELLA IGG, HIV SCREEN, HBSAG #### [facility] , #### CUU, CBC, HCGQNT #### [facility] [address] HIV 1/O/2 Antigen/Antibodyon 05-16-2022 HIV Screen 4th Generation Non-Reactive Normal Non Reactive [facility] Comment on above: Order Comment: Reaso n for Exam Encounter for care in first trimester of first preg Result Comment: HIV Negative HIV-1/HIV-2 antibodies and HIV-1 p24 antigen were NOT detected. There is no laboratory evidence of HIV infection. Performed at: [facility] [id number] Order Puller: Cm Sandoval PhD, Phone: [phone] Performed By: #### M G, CMP, CBC #### [facility] [address] [place] [address] Hepatitis B Surface Antigeno n 05-16-2022 HBsAg Screen Negative Normal Negative [facility] Comment on above: Order Comment: Reaso n for Exam Encounter for care in first trimester of first preg Result Comment: Perf ormed at: [address] [id number] Order Puller: Cm Sandoval PhD, Phone: [phone] PERFORMED BY: [place] [address] PATHOLOGIST HAND SOLE SEWER JESUS JIN M.D. Performed By: #### R SD W RFX, VZIGG, RUBELLA IGG, HIV SCREEN, HBSAG #### [facility] , #### CUU, CBC, HCGQNT #### [facility] [address] [place] [address] RPR w/rfx to Quant TP Abson 05-16-2022 RPR, Rfx Quant RPR Non-Reactive Normal Non Reactive [facility] Comment on above: Order Comment: Reaso n for Exam Encounter for care in first trimester of first preg Result Comment: PERF ORMED BY: [place] [address] PATHOLOGIST HAND SOLE SEWER JESUS JIN M.D. Performed By: #### M G, CMP, CBC #### [facility] [address] [place] [address] [place] Rubella IgG Antibodyon 05-16 Rubella IgG Antibody <0.90 Low Immune >0.99 [facility] Comment on above: Order Comment: Reaso n for Exam Encounter for care in first trimester of first preg Result Comment: Non- immune <0.90 Equivocal 0.90 - 0.99 Immune >0.99 Performed at: [facility] [id number] [place], [place] [id number] Order Puller: Cm Sandoval PhD, Phone: [phone] Performed By: #### R SD W RFX, VZIGG, RUBELLA IGG, HIV SCREEN, HBSAG #### [facility] , #### CUU, CBC, HCGQNT #### [facility] [address] [place] [address] [place] Type and Screenon 05-16-2022 ABO and Rh group Nom (Bld) Blood group O Rh(D) positive Normal [facility] Comment on above: Order Comment: Reaso n for Exam Encounter for care in first trimester of first preg Result Comment: PERF ORMED BY: [place] [address] PATHOLOGIST HAND SOLE SEWER JESUS JIN M.D. Performed By: #### R SD W RFX, VZIGG, RUBELLA IGG, HIV SCREEN, HBSAG #### [facility] , #### CUU, CBC, HCGQNT #### [facility] [address] [place] [address] Urine Cultureon 05-16-2022 Bacteria identified Cx Nom (U) Reason for Exam Encounter for care in first trimester of first preg Reason for Exam: Encounter for care in first trimester of first preg 50,000 colonies/ml mixed bacterial skin contaminants 2 Days PERFORMED BY: [place] [address] PATHOLOGIST HAND SOLE SEWER JESUS JIN M.D. [facility] Comment on above: Performed By: #### R SD W RFX, VZIGG, RUBELLA IGG, HIV SCREEN, HBSAG #### [facility] , #### CUU, CBC, HCGQNT #### [facility] [address] [place] [address] [place] Varicella IgG Antibodyon Varicella IgG Antibody <135 Low Immune >165 [facility] Comment on above: Order Comment: Reaso n for Exam Encounter for care in first trimester of first preg Result Comment: Nega tive <135 Equivocal 135 - 165 Positive >165 A positive result generally indicates exposure to the pathogen or administration of specific immunoglobulins, but it is not indication of active infection or stage of disease. Performed at: - [facility] [address] [id number] Order Puller: Cm Sandoval PhD, Phone: [phone] Performed By: #### R SD W RFX, VZIGG, RUBELLA IGG, HIV SCREEN, HBSAG #### [facility] , #### CUU, CBC, HCGQNT #### [facility] [address] CHEMISTRYOrdered By: SYSTEM SYSTEM on 04-25-2022 Albumin [...] Normal <=149mg/dL [facility] Remisol COAGULATIONOrdered By: Courtney Tang on 04-25-2022 INR Coag (PPP) [Relative time] [...] 299.0 E9/L Normal 150.0 - 500.0 E9/L [facility] HemeAutoSS RBC (Bld) [#/Vol] 4.8 E12/L Normal 4.3 - 5.9 E12/L [facility] HemeAutoSS WBC corrected for nucl RBC Auto (Bld) [#/Vol] 5.9 E9/L Normal 4.0 - 11.0 E9/L [facility] HemeAutoSS LMPon 02-09-2022 Fall risk assessment a) No falls within the last year OS-UQRCP-Pzh man 320 Work Phone: Last menstrual period start date unsure KE-AUVWE-Avw man 320 Work Phone: Tobacco use status [facility] b) No VJ-EZADT-Ddy man 320 Work Phone: ARCHAEOLOGY PROFESSOR - 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 endometriosis: discussed options continue norethindrone rx'd orilissa 200 mg bid rtc in 3 months Chief Complaint patient here to discuss pain related to endometriosis, declined customer success representative. 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 History of Present Ksasakk43 yo presents as a follow up for [...] again engaged x 1 year working at [employer] in [place] Review of Systems Constitutional: no fever, no [...] hours Vitals Vital Signs Recorded: 09Feb2022 11:41AM Grjrocfx993 Lsgplyifq05 Height5 ft 2 in Fhjjmu194 lb BMI Hludyoajxr52.51 kg/m2 BSA Calculated1.61 Tobacco Useb) No Fall [...] Tashi Lopez MD 09/29/21 Final result Normal [facility] ARCHAEOLOGY PROFESSOR - Office Visiton 07-0 ARCHAEOLOGY PROFESSOR - Office Visit Diagnoses/Problems Assessed Anxiety (300.00) (F41.9) Orders Start: FLUoxetine HCl - 20 MG Oral Capsule; TAKE 1 CAPSULE Daily Provider Impressions 26 yo 1. endometriosis - discussed treatment options rx'd Prozac for mood rx'd norethindrone rtc in 3 months Chief Complaint patient to follow up on medication from last visit in march 2021, declined customer success representative. 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 History of Present Diilhjn66 yo with endometriosis was on norethindrone d/c'd [...] hours Vitals Vital Signs Recorded: 02Jun2021 01:19PM Gervekbx985 Kljlhbasd98 Height5 ft 2 in Kbhvce040 lb BMI Ptvfsjovrl08.58 kg/m2 BSA Calculated1.53 Tobacco Useb) No Fall Screeninga) No falls within the last year [id number] Pain Scale0 Signatures Electronically signed by : Charlene Rodriguez DO; Jun 03 2021 10:55AM EST (Author) Normal [employer] ARCHAEOLOGY PROFESSOR - Office Visiton 03-27 ARCHAEOLOGY PROFESSOR - Office Visit Diagnoses/Problems Assessed Endometriosis (617.9) (N80.9) Never smoker Orders Stop: Norethindrone Acetate 5 MG Oral Tablet Tobacco Use Screening; Status:Complete; Done: [id number] Provider Impressions 26 yo 1. endometriosis: rx'd norethindrone referral to pelvic floor PT rtc in 3-6 months if continues to have pain, will consider centrally acting neuromodulator Chief Complaint Patient presents today for f/u for endometriosis PAP per patient 2019 WNL Nude Model declined -GODFREY BYRNE LMP 04/11/21 History of Present Lyqjrxn74 yo with endometriosis bleeding once per month, [...] Apr 20 2021 11:04AM EST (Author) Normal [employer] Tobacco Screening.on 021 Fall risk assessment a) No falls within the last year FC-PBIXY-Jun man 320 Work Phone: Last menstrual period start date 11Apr2021 UI-FCQJN-Bhk man 320 Work Phone: Tobacco Screening. b) No MG-OBG YN-Ris man 320 Work Phone: Radiologyon 04-14-2021 US Kidney - bilateral Normal [facility]- [facility] [place] Work Phone: US RENAL BILATon 04-14-2021 US RENAL BILAT Patient Name: DRISS COPE STUDY: US RENAL BILAT; 04/14/2021 1:14 pm INDICATION: Recurrent UTI. COMPARISON: None. ACCESSION NUMBER(S): [id number] ORDERING CLINICIAN: NICHOLAS CHAU TECHNIQUE: Multiple images [...] Electronically signed by: GENEVIEVE BREEN MD Normal [facility] Office Visit (Urology)on Follow-up visit Diagnoses/Problems Assessed Recurrent UTI (599.0) (N39.0) Orders Recurrent UTI Start: Nitrofurantoin Monohyd Macro 100 MG Oral Capsule; TAKE 1 CAPSULE Other Please take one capsule after sexual intercourse to prevent UTI Rx By: Nicholas Chau; Dispense: 30 Days ; #:30 Capsule; Refill: 11;For: Recurrent UTI; ROSY = N; Verified Transmission to [facility] Ultrasound Kidney Bilateral; Status:Hold For - Scheduling; Requested for:[id number]; Perform:[facility] Services [facility]; Due:[id number]; Last Updated By:Isela Terrazas; 04/01/2021 9:16:17 AM;Ordered; [...] UTI; ROSY = N; Verified Transmission to [facility] Provider Impressions 26 year old female with history of endometriosis presents today via telehealth as a new patient for evaluation of recurrent UTIs. She reports getting UTIs at least once per month, noting occasional nocturia. Symptoms include burning, frequency, and back pain. She states that some UTIs are related to sexual intercourse but most are not. Patient reports she saw Dr. Booth at [facility] in [place], noting she was only treated with medications and urethral dilation for a supposed stricture. Denies gross hematuria. Patient is a non-smoker. Urine culture from [facility] on 03/04/21 was positive for E. coli, [...] NPV - recurrent UTI History of Present Sw[age]czxq89 year old female with history of endometriosis presents today via telehealth as a new patient for evaluation of recurrent UTIs. She reports getting UTIs at least once per month, noting occasional nocturia. Symptoms include burning, frequency, and back pain. She states that some UTIs are related to sexual intercourse but most are not. Patient reports she saw Dr. Booth at [facility] in [place], noting she was only treated with medications [...] affect. Signature (more content not included)... Normal [employer] [place] GASTRIC [place] SOLID[place] 11-05-2020 [place] * * *Final Report* * * DATE OF EXAM: Nov 05 2020 12:26PM [facility] 0017 - [place] GASTRIC [place] SOLID [...] 4 HOURS IS CONSISTENT WITH MILD GASTROPARESIS. Patient Service Rep: PSCTracey Transcribe Date/Time: Nov 05 2020 1:09P Dictated by : BRUNO PEREA MD This examination was interpreted and the report reviewed and electronically signed by: BRUNO PEREA MD on Nov 05 2020 1:24PM EST [id number] [facility] ANES POSTPROC EVALon 020 ANES POSTPROC EVAL HNO ID: [id number] Author: Austin Story Service: ? Author Type: [...] October 25, 2020 TIME: 2:52 PM CSN: [id number] [facility] ANES PRE-OPon 10-25-2020 ANES PRE-OP HNO ID: [id number] Author: Austin Hornesudha Service: ? Author Type: Anesthesiologist Type: Anesthesia Preprocedure Evaluation Filed: 10/25/2020 1:09 PM Note Text: ANESTHESIOLOGY DAY OF SURGERY NOTE : 1995 Procedure(s) (LRB): COLONOSCOPY (N/A) EGD (N/A) Surgeon(s): David Arango) Aravind Estimated body mass index is 21.95 kg/m? [...] October 25, 2020 TIME: 1:08 PM CSN: [id number] Normal [facility] SURGICAL PATHOLOGYon 020 SURGICAL PATHOLOGY Specimen originated from [facility] Specimen #: [id number] Submitting Physician: DAVID CRUZ MD FINAL DIAGNOSIS 1. Small bowel, biopsy (A) - Small bowel mucosa with no pathologic diagnostic abnormality; negative for celiac disease, granulomas and dysplasia. 2. Stomach, biopsy (B) - Gastric oxyntic-type mucosa with no pathologic diagnostic abnormality; see comment. /[facility] 10/26/2020 COMMENT 2. No microorganisms [...] in one cassette. Gross examination performed at [facility], [address] [place] [address] EJL 10/25/2020 7:59:40 PM Date of Report: 10/26/2020 Date of Procedure: 10/25/2020 Date of Receipt: 10/25/2020 Submitted by: DAVID CRUZ MD Location: [facility] Diagnostic interpretation performed at [facility], [address] [place] [address]. CLIA Number: [id number] Normal [facility] Comment on above: Performed By: #### S #### See report for performing lab information. SURGICAL PATHOLOGY Specimen originated from [facility] Specimen #: [id number] Submitting Physician: DAVID CRUZ MD FINAL DIAGNOSIS 1. Small bowel, biopsy (A) - Small bowel mucosa with no pathologic diagnostic abnormality; negative for celiac disease, granulomas and dysplasia. 2. Stomach, biopsy (B) - Gastric oxyntic-type mucosa with no pathologic diagnostic abnormality; see comment. /[facility] 10/26/2020 COMMENT 2. No microorganisms [...] in one cassette. Gross examination performed at [facility], [address] [place] [address] EJL 10/25/2020 7:59:40 PM Date of Report: 10/26/2020 Date of Procedure: 10/25/2020 Date of Receipt: 10/25/2020 Submitted by: DAVID CRUZ MD Location: [facility] OF [facility] Diagnostic interpretation performed at [facility], [address] [place] [address]. CLIA Number: [id number] Normal [facility] ABO/RH GROUP TESTon 09-01-20 20 ABO TYPE O Normal [facility] Comment on above: Performed By: #### V ERAB #### [facility] [address] [place] [address] RH TYPE Positive Normal [facility] Comment on above: Performed By: #### V ERAB #### [facility] [address] Surgical Pathology Dep artmenton 09-01-2020 [facility] Surgical Pathology Department Name DRISS COPE Pathologist: ASHLEY HURTADO MD Date of Procedure: 09/01/2020 Date Received: 09/01/2020 Date Reported 09/03/2020 Submitting Physician: CHARLENE RODRIGUEZ D.O. Location: [facility] External # FINAL DIAGNOSIS A. LEFT [...] ENDOMETRIOSIS. Electronically Signed Out By ASHLEY HURTADO MD/AWP By the signature on this report, the [...] D. Right pelvic sidewall peritoneum are 2 otus-lcg-kev, irregular fragments of tissue measuring 1.3 x [...] in toto in one cassette. SB amisha/09/02/2020 [facility] Department of Pathology [address] [place] [address] Normal [facility] Comment on above: Performed By: #### A #### [facility] Surgical Pathology Department [address] [place] [address] History and Physical - Surge ry > [...] T&S: O+, COVID-19: negative OB Hx: None. 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 PMHx: endometriosis Surg Hx: diagnostic laparoscopy, appendectomy (2016) Meds: Meloxicam, Bedford-Linyah, Norethindrone acetate Social Hx: No tobacco, no [...] the note. I personally evaluated the patient [id number] Attending Provider Inpatient Certification StatementObservation patient/other outpatient visits Electronic Signatures: Charleen Rodriguez () (Signed 01-Sep-2020 10:04) Authored: Note Completion Co-Signer: History of Present Illness, Home Medication Review, Impression/Procedure, ERAS, Physical Exam, Consent, Note Completion Chelsie Leal ( (Resident)) (Signed 31-Aug-2020 15:44) Authored: History of Present Illness, Home Medication Review, Impression/Procedure, ERAS, Physical Exam, Consent, Note Completion Last Updated: 01-Sep-2020 10:04 by Charlene Rodriguez () Normal [facility] Homegoing Instructionson Homegoing Instructions Additional Instructions: Handouts Given: Topic 1Anesthesia Homegoing Instructions Topic 2Surgical Site Infection Handout Topic 3New Medication Education Topic 4Suggamedex handout Electronic Signatures: Aminata Gomez) (Signed 01-Sep-2020 16:07) Authored: Additional Instructions Last Updated: 01-Sep-2020 16:07 by Aminata Gomez) Normal [facility] Patient Profile - Preop v2on 09-01-2020 Patient Profile - Preop v2 Profile: Initial Info: How to be Addressedalexis Spoken Language PreferredEnglish Are you currently using the Personal [employer] Health Record or Onaro Stated Reason for Admissionseeing if my endometriosis is back Primary Contact Name and Numberlogan [phone] Patient Belongingsclothing locker glasses with bf Medications Brought to Hospitalno General Health: Weight in kg55.6 kilogram(s) Weight in tqp877.5 pound(s) Weight Methodactual (measured) Scale Typestanding Height [...] Arrangementshouse Lives Withparent(s) Resource/Environmental Concernsnone [facility] Anticipated at Transitionnone Substance: Current or [...] Learning Preferencesverbal instruction Cultural Considerationsnone Developmental Considerationsnone Protestant Considerationsnone Other learner availableno Falls RiskPatient location auto qualifies him/her for HIGH RISK. Are there any cultural, spiritual, restoration practices/values/needs that are important for us to knowno Pain Scalenumerical 0-10 Pain Scale Educationteaching provided Current Pain Level0 = None Acceptable Pain Level5 = Moderate Chronic Painno Information Review: Allergies, Home Meds and Significant Events have been Reviewed and Verified with Patient/Familyyes Allergy, Intolerance, Adverse Event: Allergies: No Known Allergies: Active Electronic Signatures: Sierra Kraft (RN) (Signed 01-Sep-2020 12:39) Authored: Initial Info, General Health, Health Mgmt, Relationship/Environ, Substance, Risk Screens, Additional Information Last Updated: 01-Sep-2020 12:39 by Sierra Kraft (RN) References: 1. Data Referenced From History and Physical - Surgery > 30 days 01-Sep-2020 03:42 Normal [facility] Preop Checkliston 09-01-2020 Preop Checklist Preop Checklist: Preop Checklist: Arrival [id number] Arrival Time12:30 Procedure Typelaparoscopic endometriosis excision NPO [id number] 00:00 ID Band Onyes Allergy Bandno known [...] 01-Sep-2020 12:35 by Sierra Kraft (RN) Normal [facility] ANTIBODY IDENT.on 08-31-2020 ANTIBODY IDENT. SEE BELOW Normal [facility] Comment on above: Result Comment: NO C LINICALLY SIGNIFICANT ANTIBODIES IDENTIFIED. Performed By: #### A BID #### [facility] [address] [place] [address] CBCon 08-30-2020 Erythrocyte distribution width (RBC) [Ratio] 12.1 % Normal 11.5 - 14.5 [facility] Comment on above: Performed By: #### C BC #### [address] [id number] Hematocrit (Bld) [Volume fraction] 39.6 % Normal 36.0 - 46.0 [facility] Comment on above: Performed By: #### C BC #### [address] [id number] Hemoglobin (Bld) [Mass/Vol] 12.6 g/dL Normal 12.0 - 16.0 [facility] Comment on above: Performed By: #### C BC #### [address] [id number] MCHC (RBC) [Mass/Vol] 31.8 g/dL Low 32.0 - 36.0 [facility] Comment on above: Performed By: #### C BC #### [address] [id number] MCV (RBC) [Entitic vol] 90 fL Normal 80 - 100 [facility] Comment on above: Performed By: #### C BC #### [address] [id number] Platelets (Bld) [#/Vol] 333 10*3/uL Normal 150 - 450 [facility] Comment on above: Performed By: #### C BC #### [address] [id number] RBC 4.42 x10E12/L Normal 4.00 - 5.20 [facility] Comment on above: Performed By: #### C BC #### [address] [id number] WBC (Bld) [#/Vol] 5.6 10*3/uL Normal 4.4 - 11.3 [facility] Comment on above: Performed By: #### C BC #### [address] [id number] CORONAVIRUS 2019, SCREEN ASY MPTOMATICon 08-30-2020 SARS-CoV-2 (COVID-19) RNA TENA+probe Ql (Unsp spec) Not detected Normal Not Detected [facility] Comment on above: Result [...] patient management decisions. Fact sheet for providers: https://www.fda.gov/media/542518/download Fact sheet for patients: https://www.fda.gov/media/017305/download This test has received FDA Emergency Use Authorization (EUA) and has been verified by [facility] ([facility]). This test is only authorized for the duration of time that circumstances exist to justify the authorization of the emergency use of in vitro diagnostic tests for the detection of SARS-CoV-2 virus and/or diagnosis of COVID-19 infection under section 564(b)(1) of the Act, 21 U.S.C. 360bbb-3(b)(1), unless the authorization is terminated or revoked sooner. [facility] is certified under CLIA-88 as qualified to perform high complexity testing. Testing is performed in the [facility] laboratories located at [address] [place] [address]. Performed By: #### C OVSC #### [place] [address] Lab Specimen Source Nasal, Nasopharyngeal Normal [facility] Comment on above: Performed By: #### C OVSC #### [address] [place] [address] TYPE + SCREENon 08-30-2020 ABO TYPE O Normal [facility] Comment on above: Performed By: #### T +S #### [facility] 2[place] [address] [id number] RH TYPE Positive Normal [facility] Comment on above: Performed By: #### T +S #### [facility] [address] [id number] ABO TYPE Canceled Normal [facility] Comment on above: Order Comment: TEST TYPE + SCREEN WAS CANCELLED, 08/30/2020 13:37 JOP. Performed By: #### T +S #### [facility] [address] [place] [id number] RH TYPE Canceled Normal [facility] Comment on above: Order Comment: TEST TYPE + SCREEN WAS CANCELLED, 08/30/2020 13:37 JOP. Performed By: #### T +S #### [facility] [address] [place] [id number] HOSPon 07-29-2020 HOSP Patient:Flavio Cope MRN: Height:5' [...] for the following basenames: K,HCT Progress Notes ([facility] REJ AV4): Jaquelin Wesley Ma 10/19/2020 [...] 1 10 oz. Bottle of Magnesium Citrate (Lemon/Augustine) ? A test for COVID 19 test [...] toast without seeds (not multigrain); pretzels; waffles, Czech toast and pancakes; white rice, noodles, pasta, macaroni, peeled cooked potatoes; Special K, Rice Krispies or [place] Flakes cereals; ripe bananas; melons (except watermelon [...] carbonated beverages such as chi aislinn or lemon-ouzinkie soda; Gatorade? or other sports drinks (not [...] make sure you have a responsible adult water truck driver to take you home after procedure. Due to having sedation, you may not drive the rest of the day. ? If you need to reschedule, please call [phone] ?Date/Provider Dr Cruz Procedure:colonoscpy Facility:[facility] Prep ordered( if aware):miralax Knowledge of prep instructions:posted to [employer] Diabetic:no Blood Thinners:no Pacemaker with defibrillator:no left message for patient to return call. Nurse triage please give below message. PLEASE READ PATIENT INSTRUCTIONS BELOW. THANK YOU. [facility] PROGRESSon 07-29-2020 PROGRESS HNO ID: [id number] Author: Leon Perkins (Rt) Fito Blanchard Service: Radiology Author Type: Lamp [place]ades Supervisor Type: Progress Notes Filed: 07/29/2020 11:06 AM [...] RT Daya July 29, 2020 11:01 AM [facility] XR ABD 2V SUPINE W UPR/DECUB /CTLon [...] structures are normal. No other significant abnormality. Patient Service Rep: DAVID Transcribe Date/Time: Jul 29 2020 11:19A Dictated by : LALI ORNELAS MD This examination was interpreted and the report reviewed and electronically signed by: LALI ORNELAS MD on Jul 29 2020 11:19AM EST [id number] Normal [facility] Vital Signs Date Time Vital Sign Value Performing Clinician Facility 01-10-2024 10:55-0500 Body mass index (BMI) [Ratio] 28.17 kg/m2 [employer] Work Phone: [facility] 01-10-2024 10:55-0500 Body weight 69.85 kg [employer] Work Phone: [facility] 01-10-2024 10:55-0500 Diastolic blood pressure 84 mm[Hg] [employer] [facility] Work Phone: [facility] 01-10-2024 10:55-0500 Systolic blood pressure 128 mm[Hg] Nathan Kiesha [employer] Work Phone: [facility] 09-12-2023 17:31-0400 Body temperature 98.96 [degF] [facility] 09-12-2023 17:31-0400 Diastolic blood pressure 91 mm[Hg] [facility] 09-12-2023 17:31-0400 FIO2 99 % [facility] 09-12-2023 17:31-0400 Heart rate 122 /min [facility] 09-12-2023 17:31-0400 Respiratory rate 16 /min [facility] 09-12-2023 17:31-0400 Systolic blood pressure 135 mm[Hg] [facility] 05-01-2023 10:55-0400 Body height 157.5 cm Srinivasa Reaper HOT STICK WORKER.TERRAZZO LAYER HELPER Work Phone: [facility] 05-01-2023 10:55-0400 Body weight 64.86 kg Srinivasa Reaper HOT STICK WORKER.TERRAZZO LAYER HELPER Work Phone: [facility] 05-01-2023 10:55-0400 Diastolic blood pressure 64 mm[Hg] Srinivasa Reaper HOT STICK WORKER.TERRAZZO LAYER HELPER Work Phone: [facility] 05-01-2023 10:55-0400 Systolic blood pressure 148 mm[Hg] Srinivasa Reaper HOT STICK WORKER.TERRAZZO LAYER HELPER Work Phone: [facility] 01-31-2023 19:18-0500 Diastolic blood pressure 82 mm[Hg] [facility] 01-31-2023 19:18-0500 Heart rate 98 /min [facility] 01-31-2023 19:18-0500 Nursing Progress Note Reason Other: this RN discharged pt. pt verbalizes understanding and denies questiosn prior to discharge. [facility] 01-31-2023 19:18-0500 Respiratory rate 16 /min [facility] 01-31-2023 19:18-0500 SaO2% (BldA) [Mass fraction] 100 % [facility] 01-31-2023 19:18-0500 Systolic blood pressure 126 mm[Hg] [facility] 01-31-2023 18:00-0500 Diastolic blood pressure 92 mm[Hg] [facility] 01-31-2023 18:00-0500 Heart rate 110 /min [facility] 01-31-2023 18:00-0500 Mean blood pressure 107 mm[Hg] [facility] 01-31-2023 18:00-0500 SaO2% (BldA) [Mass fraction] 99 % [facility] 01-31-2023 18:00-0500 Systolic blood pressure 138 mm[Hg] [facility] 01-31-2023 17:00-0500 Diastolic blood pressure 97 mm[Hg] [facility] 01-31-2023 17:00-0500 Mean blood pressure 104 mm[Hg] [facility] 01-31-2023 17:00-0500 Systolic blood pressure 117 mm[Hg] [facility] 01-31-2023 16:38-0500 Heart rate 105 /min [facility] 01-31-2023 16:38-0500 Mean blood pressure 114 mm[Hg] [facility] 01-31-2023 16:38-0500 Respiratory rate 18 /min [facility] 01-31-2023 13:49-0500 Body temperature 97.88 [degF] [facility] 01-31-2023 13:49-0500 Heart rate 118 /min [facility] 12-30-2022 14:55-0500 Body temperature 97.88 [degF] [facility] 12-30-2022 14:55-0500 Diastolic blood pressure 81 mm[Hg] [facility] 12-30-2022 14:55-0500 Heart rate 84 /min [facility] 12-30-2022 14:55-0500 Mean blood pressure 100 mm[Hg] [facility] 12-30-2022 14:55-0500 Respiratory rate 20 /min [facility] 12-30-2022 14:55-0500 SaO2% (BldA) [Mass fraction] 98 % [facility] 12-30-2022 14:55-0500 Systolic blood pressure 137 mm[Hg] [facility] 12-30-2022 14:35-0500 Body temperature 97.88 [degF] [facility] 12-30-2022 14:35-0500 Diastolic blood pressure 79 mm[Hg] [facility] 12-30-2022 14:35-0500 Heart rate 82 /min [facility] 12-30-2022 14:35-0500 Mean blood pressure 94 mm[Hg] [facility] 12-30-2022 14:35-0500 Respiratory rate 16 /min [facility] 12-30-2022 14:35-0500 SaO2% (BldA) [Mass fraction] 97 % [facility] 12-30-2022 14:35-0500 Systolic blood pressure 123 mm[Hg] [facility] 12-30-2022 13:35-0500 Body temperature 97.88 [degF] [facility] 12-30-2022 13:35-0500 Diastolic blood pressure 70 mm[Hg] [facility] 12-30-2022 13:35-0500 Heart rate 80 /min [facility] 12-30-2022 13:35-0500 Mean blood pressure 89 mm[Hg] [facility] 12-30-2022 13:35-0500 Respiratory rate 17 /min [facility] 12-30-2022 13:35-0500 SaO2% (BldA) [Mass fraction] 96 % [facility] 12-30-2022 13:35-0500 Systolic blood pressure 126 mm[Hg] [facility] 12-30-2022 13:00-0500 Respiratory rate 12 /min [facility] 12-30-2022 12:55-0500 Respiratory rate 9 /min [facility] 12-30-2022 12:50-0500 Respiratory rate 10 /min [facility] 12-30-2022 08:15-0500 Body temperature 98.24 [degF] [facility] 12-30-2022 08:15-0500 Heart rate 111 /min [facility] 11-27-2022 22:26-0500 Hourly Rounding Fredi KARASIK [facility] Comment on above: Result Comment: ensured that all pt belo ngings are sent with pt. pt has no questions or concerns. report given to EMS. pt stable and no s/s of distress. pt off unit to transfer 11-27-2022 22:00-0500 Diastolic blood pressure 97 mm[Hg] Fredi KARASIK [facility] 11-27-2022 22:00-0500 Heart rate 134 /min Fredi KARASIK [facility] 11-27-2022 22:00-0500 Hourly Rounding Fredi KARASIK [facility] 11-27-2022 22:00-0500 Mean blood pressure 116 mm[Hg] Fredi KARASIK [facility] 11-27-2022 22:00-0500 Systolic blood pressure 154 mm[Hg] Fredi KARASIK [facility] 11-27-2022 21:50-0500 Blood Pressure Location Fredi KARASIK [facility] 11-27-2022 21:50-0500 Diastolic blood pressure 90 mm[Hg] Fredi KARASIK [facility] 11-27-2022 21:50-0500 Heart rate 133 /min Fredi KARASIK [facility] 11-27-2022 21:50-0500 Hourly Rounding Fredi KARASIK [facility] 11-27-2022 21:50-0500 Mean blood pressure 113 mm[Hg] Fredi KARASIK [facility] 11-27-2022 21:50-0500 Respiratory rate 18 /min Fredi KARASIK [facility] 11-27-2022 21:50-0500 SaO2% (BldA) [Mass fraction] 98 % Fredi KARASIK [facility] 11-27-2022 21:50-0500 Systolic blood pressure 159 mm[Hg] Fredi KARASIK [facility] 11-27-2022 21:37-0500 Blood Pressure Location Fredi KARASIK [facility] 11-27-2022 21:37-0500 Diastolic blood pressure 88 mm[Hg] Fredi KARASIK [facility] 11-27-2022 21:37-0500 Heart rate 131 /min Fredi KARASIK [facility] 11-27-2022 21:37-0500 Mean blood pressure 111 mm[Hg] Fredi KARASIK [facility] 11-27-2022 21:37-0500 SaO2% (BldA) [Mass fraction] 97 % Fredi KARASIK [facility] 11-27-2022 21:37-0500 Systolic blood pressure 158 mm[Hg] Fredi KARASIK [facility] 11-27-2022 21:30-0500 Blood Pressure Location Fredi KARASIK [facility] 11-27-2022 21:30-0500 Body temperature 98.6 [degF] Fredi KARASIK [facility] 11-27-2022 19:00-0500 Body temperature 98.24 [degF] Fredi SCHUMACHERASIK [facility] 11-27-2022 17:15-0500 Body temperature 98.06 [degF] Fredi SCHUMACHERASIK [facility] 11-27-2022 14:02-0500 Heart rate 99 /min Fredi ABREUK [facility] 07-14-2022 07:00-0400 Body temperature 98.6 [degF] Kaylinn Dokken [facility] 07-14-2022 07:00-0400 Diastolic blood pressure 67 mm[Hg] Kaylinn Dokken [facility] 07-14-2022 07:00-0400 Heart rate 80 /min Kaylinn Dokken [facility] 07-14-2022 07:00-0400 Mean blood pressure 83 mm[Hg] Kaylinn Dokken [facility] 07-14-2022 07:00-0400 Respiratory rate 17 /min Kaylinn Dokken [facility] 07-14-2022 07:00-0400 Systolic blood pressure 115 mm[Hg] Kaylinn Dokken [facility] 07-14-2022 06:07-0400 Body temperature 98.24 [degF] Kaylinn Dokken [facility] 07-14-2022 06:07-0400 Diastolic blood pressure 79 mm[Hg] Kaylinn Dokken [facility] 08-19-2022 06:07-0400 Heart rate 90 /min Charlotteylinn Dokken [facility] 07-14-2022 06:07-0400 Respiratory rate 18 /min Kaylinn Dokken [facility] 07-14-2022 06:07-0400 SaO2% (BldA) [Mass fraction] 100 % Beatrisn Dokken [facility] 07-14-2022 06:07-0400 Systolic blood pressure 134 mm[Hg] Beatrisn Dokken [facility] 07-14-2022 05:30-0400 Hourly Rounding Nathan KIESHA [facility] Comment on above: Result Comment: Pt discharged per physic santiago orders. Pt ambulates off unit with a steady gait 07-14-2022 05:15-0400 Diastolic blood pressure 77 mm[Hg] Nathan KIESHA [facility] 07-14-2022 05:15-0400 Heart rate 105 /min Nathan KIESHA [facility] 07-14-2022 05:15-0400 Hourly Rounding Nathan KIESHA [facility] 07-14-2022 05:15-0400 Mean blood pressure 89 mm[Hg] Nathan KIESHA [facility] 07-14-2022 05:15-0400 Respiratory rate 18 /min Nathan KIESHA [facility] 07-14-2022 05:15-0400 Systolic blood pressure 113 mm[Hg] Nathan KIESHA [facility] 04-18-2022 11:00-0400 Body height 160.02 cm Domo Hodges Other [employer] Other 04-18-2022 11:00-0400 Body mass index (BMI) [Ratio] 23.03 kg/m2 Domo Hodges Other [place] Other 04-18-2022 11:00-0400 Body weight 58.97 kg Domo Hodges Other [place] Other 02-09-2022 11:41-0400 Body height 157.48 cm Charlene Billow DO Work Phone: MC-LBVGE-Unueae 320 Work Phone: 02-09-2022 11:41-0400 Body mass index (BMI) [Ratio] 24.51 kg/m2 Charlene Billow DO Work Phone: NH-HKLAA-Hxxhnb 320 Work Phone: 02-09-2022 11:41-0400 Body surface area Derived from formula 1.61 m2 Charlene Billow DO Work Phone: GC-DPWLQ-Hebarx 320 Work Phone: 02-09-2022 11:41-0400 Body weight 60.78 kg Charlene Billow DO Work Phone: OA-AFKOD-Denwlf 320 Work Phone: 02-09-2022 11:41-0400 Diastolic blood pressure 87 mm[Hg] Charlene Billow DO Work Phone: UO-YUTRM-Sglqon 320 Work Phone: 02-09-2022 11:41-0400 Systolic blood pressure 136 mm[Hg] Charlene Billow DO Work Phone: IF-EDYMH-Tvdklp 320 Work Phone: 02-09-2022 11:41-0400 0 1 Charlene Billow DO Work Phone: VP-DQWKH-Xwdsph 320 Work Phone: Comment on above: GRAV PARA [employer] 04-19-2021 14:53-0400 Body height 157.48 cm Charlene Billow DO Work Phone: XS-AXPQH-Ctgtfy 320 Work Phone: 04-19-2021 14:53-0400 Body mass index (BMI) [Ratio] 21.77 kg/m2 Charlene Billow DO Work Phone: QE-LPTVJ-Asbdoy 320 Work Phone: 04-19-2021 14:53-0400 Body surface area Derived from formula 1.53 m2 Charlene Billow DO Work Phone: PA-IIJTS-Uudtco 320 Work Phone: 04-19-2021 14:53-0400 Body weight 53.98 kg Charlene Billow DO Work Phone: SW-ZMJXM-Jknkvo 320 Work Phone: 04-19-2021 14:53-0400 Diastolic blood pressure 83 mm[Hg] Charlene Billow DO Work Phone: NT-STIVZ-Ebcgzg 320 Work Phone: 04-19-2021 14:53-0400 Heart rate 108 /min Charlene Billow DO Work Phone: EC-ASCMJ-Czjbjk 320 Work Phone: 04-19-2021 14:53-0400 Systolic blood pressure 142 mm[Hg] Charlene Billow DO Work Phone: SN-VZLMH-Evnoam 320 Work Phone: 04-19-2021 14:53-0400 0 1 Charlene Billow DO Work Phone: BX-SKGDP-Xvvwkd 320 Work Phone: Comment on above: GRAV PARA [employer] Encounters Encounter Date Encounter Type Care Provider Facility Start: 07-22-2024 End: 07-22-2024 ambulatory NATHAN KIESHA Not Available Start: 04-29-2024 Telephone encounter Charlene Bill ow DO Work Phone: [facility] Start: 04-25-2024 Telephone encounter Charlene Bill ow DO Work Phone: [facility] Comment on above: Surgery Cancelled Start: 03-11-2024 End: 03-11-2024 ambulatory ZENOBIA MUELLER Not Available Start: 02-19-2024 End: 02-19-2024 ambulatory NAY CHOUDHARY Not Available Start: 01-30-2024 End: 01-30-2024 ambulatory NATHAN KIESHA Not Available Start: 01-10-2024 End: 01-10-2024 Office outpatient visit 15 minutes Nathan Kiesha DO Work Phone: [facility] Comment on above: Menorrhagia with reg ular cycle; Pelvic pain in female; Uses control Start: 01-10-2024 End: 01-10-2024 ambulatory NATHAN KIESHA Not Available Start: 01-02-2024 Refill Charlene Billow D O Work Phone: [facility] Comment on above: Refill Request Start: 12-31-2023 ambulatory Charlene Billow D O Work Phone: Obstetrics/Gynecology Comment on above: pain Start: 12-10-2023 End: 12-10-2023 ambulatory CHARLENE BILLOW Facility:[facility] Start: 10-23-2023 End: 10-23-2023 ambulatory CRUZ RODRÍGUEZ Not Available Start: 10-22-2023 ambulatory Charlene Billow D O Work Phone: [facility] Start: 10-22-2023 Patient encounter procedure Charlene Billow DO Work Phone: Obstetrics/Gynecology Comment on above: office visit Start: 09-12-2023 End: 09-12-2023 Emergency department patient visit [facility] Start: 09-12-2023 End: 09-12-2023 Emergency department patient visit [facility] Start: 08-30-2023 Manual pelvic examination Charlene Billow DO Work Phone: Obstetrics/Gynecology Comment on above: Pelvic pain in femal e (Primary Dx) Start: 08-26-2023 ambulatory Charlene Billow D O Work Phone: Obstetrics/Gynecology Comment on above: painful periods Start: 08-24-2023 End: 08-24-2023 Manual pelvic examination Srinivasa Reaper HOT STICK WORKER.TERRAZZO LAYER HELPER Work Phone: Gynecology Comment on above: High-tone pelvic stella or dysfunction (Primary Dx); Chronic pelvic pain in female Start: 08-24-2023 End: 08-24-2023 Telemedicine consultation with patient Rsinivasa Reaper HOT STICK WORKER.TERRAZZO LAYER HELPER Work Phone: [facility] Start: 08-24-2023 End: 08-24-2023 ambulatory SRINIVASA REAPER Facility:[facility] Start: 08-13-2023 ambulatory Charlene Billow D O Work Phone: Obstetrics/Gynecology Comment on above: painful period Start: 08-02-2023 Telephone encounter Charlene Bill ow DO Work Phone: Gynecology Comment on above: Insurance Authorizat ion (Orilissa) Start: 07-16-2023 End: 07-16-2023 ambulatory CHARLENE BILLOW Facility:[facility] Start: 06-12-2023 End: 06-12-2023 ambulatory CHARLENE BILLOW Facility:[facility] Start: 06-12-2023 End: 06-12-2023 Subsequent hospital visit by physician Maurice [facility] Suki (I-Stat/1.5t) Radiology Comment on above: Pelvic and perineal pain [R10.2] Start: 05-17-2023 End: 05-17-2023 Manual pelvic examination Charlene Billow DO Work Phone: Obstetrics/Gynecology Comment on above: Endometriosis (Prima ry Dx); Pelvic and perineal pain Start: 05-17-2023 End: 05-17-2023 Telemedicine consultation with patient Charlene Billow DO Work Phone: [facility] Start: 05-17-2023 End: 05-17-2023 ambulatory [facility] Facility:[facility] Start: 05-11-2023 Telephone encounter Charlene escobedo DO Work Phone: Gynecology Comment on above: Vaginal Bleeding Start: 05-09-2023 End: 07-20-2023 ambulatory SRINIVASA DOWNS [facility] Start: 05-01-2023 End: 05-01-2023 [facility] Start: 05-01-2023 End: 05-01-2023 Patient encounter procedure Srinivasa Downs HOT STICK WORKER.TERRAZZO LAYER HELPER Work Phone: Gynecology Comment on above: Chronic pelvic pain in female (Primary Dx); Constipation, unspecified constipation type; High-tone pelvic floor dysfunction; Diastasis of rectus abdominis; Dysmenorrhea; Other specified dyspareunia Start: 04-22-2023 ambulatory Charlene Valladares Work Phone: Obstetrics/Gynecology Comment on above: painful Start: 03-23-2023 End: 03-23-2023 ambulatory [facility] Facility:[facility] Start: 01-31-2023 End: 01-31-2023 [facility] Start: 01-31-2023 End: 01-31-2023 Emergency department patient visit [facility] Start: 12-30-2022 End: 12-30-2022 [facility] Start: 12-30-2022 End: 12-30-2022 Patient encounter procedure [facility] Start: 12-05-2022 End: 12-05-2022 ambulatory PAOLO DIALLO [facility] Start: 11-28-2022 End: 12-02-2022 Evaluation and management of inpatient KATHE RYDER [facility] Start: 11-28-2022 End: 12-27-2022 Pre-admission assessment Fredi DORSEY [facility] Start: 11-27-2022 End: 11-28-2022 ambulatory Fredi DORSEY [facility] Start: 11-27-2022 End: 11-27-2022 OB Triage Fredi DORSEY [facility] Start: 09-20-2022 End: 09-21-2022 ambulatory MD Cruz Meza [facility] Start: 08-23-2022 End: 08-23-2022 ambulatory Cruz Rodríguez Facility:[facility] Start: 07-14-2022 End: 07-14-2022 Emergency department patient visit Kumar Villagomez [facility] Start: 07-14-2022 End: 07-14-2022 OB Triage Nathan POP [facility] Start: 05-16-2022 End: 05-16-2022 ambulatory Cruz Rodríguez Facility:[facility] Start: 04-25-2022 End: 04-25-2022 Patient encounter procedure DOMO HODGES [facility] Start: 04-18-2022 End: 04-18-2022 ambulatory Domo Hodges Other [facility] [employer] Other Start: 04-18-2022 Patient encounter procedure Domo Hodges [facility] Start: 02-09-2022 Office outpatient vi sit 15 minutes Charlene Rodriguez DO Work Phone: [facility] [address] Work Phone: Start: 09-29-2021 End: 10-02-2021 [facility] Start: 09-29-2021 End: 10-02-2021 ambulatory [facility]OW[facility] POC[facility] Start: 04-19-2021 AUDIT Charlene Keating O Work Phone: SE-YAKHO-Wlbqja 320 Work Phone: Start: 04-19-2021 PLVCPOBGYN, Provider : Charlene Rodriguez, Status: Pen, Time: 2:45 PM Nicholas Chau MD Work Phone: EZ-Odaqnno-Ehkooxcas Work Phone: Start: 04-18-2021 Chart Update Nicholas [place] Work Phone: [id number] Work Phone: Procedures Date Procedure Procedure Detail Performing Clinician Start: 08-15-2023 Cytp cerv/vag auto t hin layer prep mnl screen Nathan Pop DO Work Phone: Start: 06-12-2023 Mri pelvis w/o & w/c ontrast material Charlene Rodriguez DO Work Phone: Start: 05-16-2022 Antibody screen Cruz parra Comment on above: Order Comment: Saharao junior for Exam Encounter for care in first trimester of first preg Result Comment: PERF ORMED BY: [place] [address] PATHOLOGIST HAND SOLE SEWER JESUS JIN M.D. Performed By: #### R SD W RFX, VZIGG, RUBELLA IGG, HIV SCREEN, HBSAG #### [facility] , #### CUU, CBC, HCGQNT #### [address] Start: 02-28-2021 Cystoscopy DOMO BROWNE Start: 08-30-2020 End: 08-30-2020 Antibody screen Comment on above: Performed By: #### T +S #### [facility] [place] [address] Order Comment: TEST TYPE + SCREEN WAS CANCELLED, 08/30/2020 13:37 JOP. Performed By: #### T +S #### [facility] [address] [place] [address] Start: 08-07-2018 RIGHT SHOULDER OPEN DISTAL CLAVICLE EXCISION 1 DOMO EDWARD Comment on above: RIGHT SHOULDER OPEN DISTAL CLAVICLE EXCISION RIGHT SHOULDER OPEN DISTAL CLAVICLE EXCISION Appendectomy DOMO HODGES Betamethasone (substance) Gr uzma DORSEY Comment on above: Dose #1: 11/27/22 Colonoscopy DOMO HODGES Endoscope, device (p hysical object) Von Claudy Laparoscopy Nicholas Chau MD Work Phone: Plan of Treatment Date Care Activity Detail Author Start: 08-18-2024 End: 08-18-2024 Patient encounter procedure 08/18/2024 11:00 AM EDT Office Visit [facility] [address] [place] [address] Nathan Pop DO [address] [place], [place] [id number] [facility] Start: 07-27-2024 Influenza vaccination Influenz a Vaccine (Season Ended) [facility] Start: 06-23-2024 End: 06-23-2024 Patient encounter procedure 06/23/2024 10:30 AM EDT Office Visit Obstetrics/Gynecology [address] [address] Charlene Rodriguez DO [address] [place] [address] 2 WEEK POST OP Obstetrics/Gynecolog y Comment on above: 2 WEEK POST OP Start: 05-27-2024 End: 05-27-2024 Admission to same day surgery center 05/27/2024 7:30 AM EDT - 05/27/2024 9:30 AM EDT Surgery [facility] [address] [place] [address] Meñobarbara Charlene, [address] [place] [address] LAPAROSCOPY FULGURATION OR EXCISION OF LESIONS OF THE OVARY PELVIC VISCERA OR PERITONEAL SURFACE BY ANY METHOD [facility] Comment on above: LAPAROSCOPY FULGURAT ION OR EXCISION OF LESIONS OF THE OVARY PELVIC VISCERA OR PERITONEAL SURFACE BY ANY METHOD Start: 05-27-2024 End: 05-27-2024 Laps fulg/exc ovary viscera/peritoneal surface LAPAROSCOPY FULGURATION OR EXCISION OF LESIONS OF THE OVARY PELVIC VISCERA OR PERITONEAL SURFACE BY ANY METHOD Endometriosis 05/27/2024 7:30 AM EDT ME OR Start: 05-27-2024 Subsequent hospital visit by physician 05/27/2024 7:30 AM EDT Hospital Encounter [facility] [address] [place] [address] Charlene Rodriguez, [address] [place] [address] Endometriosis [N80.9] [facility] Comment on above: Endometriosis [N80.9 ] Start: 05-25-2024 Influenza vaccination Influenza Vacc ine (#1) [facility] Comment on above: Postponed from 07/27 (Patient Refused) Start: 05-20-2024 End: 05-20-2024 ambulatory 05/20/2024 10:00 AM EDT [facility] CHASSIS WIRER UROL PIRES [facility] [address] [address] Pires, Uro Pilot 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 Nurse [address] [address] RN TEACHING CHASSIS WIRER [facility]OL [facility] Comment on above: RN TEACHING Start: 04-22-2024 End: 04-22-2024 Patient encounter procedure 04/22/2024 9:00 AM EDT Office Visit [facility] [address] [place] [id number] Cruz Rodríguez MD [address] [place] [address] [facility] Start: 2024 Urine microalbumin profile DTaP,Tdap,Td Vaccine (7 - Td or Tdap) [facility] Start: 01-30-2024 End: 01-30-2024 Patient encounter procedure 01/30/2024 11:10 AM EST Consult [facility] [address] [place] [address] Nathan Pop, DO [address] [place] [address] [facility] Start: 01-15-2024 End: 01-15-2024 Professional / ancillary services management 01/15/2024 8:00 AM EST Ancillary Procedure [facility] [address] [place] [address] [facility] Start: 01-10-2024 End: 01-10-2025 US for US PELVIS-TRANSVAG IF INDICATED Imaging Routine Pelvic pain in female Expected: 01/10/2024 (Approximate), Expires: 01/10/2025 [facility] Work Phone: Comment on above: Expected: 01/10/2024 (Approximate), Expires: 01/10/2025 Start: 11-26-2023 Behavioral Health Screening Behavioral Health Screening [facility] Start: 11-26-2023 Depression Assessment Depression Ass [facility] Start: 07-27-2023 Covid-19 Vaccine ( season) Covid-19 Vaccine ( season) [facility] Start: 07-27-2023 Influenza vaccination [facility] Start: 11-26-2022 DEPRESSION ASSESSMENT DEPRESSION ASS [facility] Start: 05-23-2022 FUV, Provider: Charlene Rodriguez, Status: Pen, Time: 1:30 PM FUV, Provider: Charlene Rodriguez, Status: Pen, Time: 1:30 PM [id number] 320 Work Phone: Start: 08-16-2021 FUV, Provider: Charlene Rodriguez, Status: Pen, Time: 11:15 AM FUV, Provider: Charlene Rodriguez, Status: Pen, Time: 11:15 AM [id number] [address] Work Phone: Start: 2016 PAP TESTING PAP TESTING [facility] Start: 2016 Screening for malign ant neoplasm of cervix Pap Testing [facility] Start: 2014 Urine microalbumin profile [facility] Start: 2013 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 VISIT ANNUAL PCP TEAM CHRONIC DISEASE VISIT [facility] Start: 2013 BP CONTROLLED (<130/80) BP CONTROLLE D (<130/80) [facility] Start: 2013 HEPATITIS C SCREENING HEPATITIS [facility] Start: 2013 Hepatitis C screening Hepatitis C [facility] Start: 2013 HIV SCREENING HIV SCREENING [facility] Start: 2013 HIV screening HIV Screening [facility] Start: 1995 COVID-19 VACCINE (#1) COVID-19 VACCI NE (#1) [facility] Start: 1995 HEPATITIS B (1 of 3 - 3-dose series) HEPATITIS B (1 of 3 - 3-dose series) [facility] Start: 1995 Hepatitis B Vaccine (1 of 3 - 3-dose series) Hepatitis B Vaccine (1 of 3 - 3-dose series) [facility] End: 06-15-2024 Mri pelvis w/o & w/contrast material MRI FEMALE PELVIS WO/W IVCON Radiology Routine Pelvic and perineal pain 1 Occurrences starting 05/17/2023 until 06/15/2024 [facility] Work Phone: Comment on above: 1 Occurrences starti ng 05/17/2023 until 06/15/2024 [facility] [place] Immunizations Immunization Date Immunization Notes Care Provider Mary walters 09-11-2014 hepatitis A vaccine, adult dosage Nathan Pop DO Work Phone: [facility] 09-11-2014 human papilloma viru s vaccine, quadrivalent Nathan Kiesha DO Work Phone: [facility] 09-11-2014 influenza, seasonal, injectable, preservative free Nathan Kiesha DO Work Phone: [facility] 09-11-2014 influenza virus vacc ine, unspecified formulation Charlene Rodriguez DO Work Phone: [facility] 05-04-2014 human papilloma viru s vaccine, quadrivalent Nathan Kiesha DO Work Phone: [facility] 2014 hepatitis A vaccine, adult dosage Nathan Kiesha DO Work Phone: [facility] 2014 human papilloma viru s vaccine, quadrivalent Nathan Kiesha DO Work Phone: [facility] 2014 tetanus toxoid, redu quinton diphtheria toxoid, and acellular pertussis vaccine, adsorbed Nathan Kiesha DO Work Phone: [facility] 04-03-2007 meningococcal polysaccharide (groups A, C, Y and W-135) diphtheria toxoid conjugate vaccine (MCV4P) Nathan Kiesha DO Work Phone: [facility] 05-03-2000 diphtheria, tetanus toxoids and acellular pertussis vaccine, unspecified formulation Nathan Kiesha DO Work Phone: [facility] 05-03-2000 measles, mumps and rubella virus vaccine Nathan Kiesha DO Work Phone: [facility] 05-03-2000 poliovirus vaccine, inactivated Nathan Kiesha DO Work Phone: [facility] 12-29-1997 diphtheria, tetanus toxoids and acellular pertussis vaccine, unspecified formulation Nathan Kiesha DO Work Phone: [facility] 08-01-1996 DTP-Haemophilus influenzae type b conjugate vaccine Nathan Kiesha DO Work Phone: [facility] 08-01-1996 hepatitis B vaccine, pediatric or pediatric/adolescent dosage Nathan Kiesha DO Work Phone: [facility] 08-01-1996 measles, mumps and rubella virus vaccine Nathan Kiesha DO Work Phone: [facility] 08-01-1996 trivalent poliovirus vaccine, live, oral Nathan Kiesha DO Work Phone: [facility] 1995 DTP-Haemophilus influenzae type b conjugate vaccine Nathan Kiesha DO Work Phone: [facility] 1995 hepatitis B vaccine, pediatric or pediatric/adolescent dosage Nathan Kiesha DO Work Phone: [facility] 1995 trivalent poliovirus vaccine, live, oral Nathan Kiesha DO Work Phone: [facility] 1995 DTP-Haemophilus influenzae type b conjugate vaccine Nathan Kiesha DO Work Phone: [facility] 1995 hepatitis B vaccine, pediatric or pediatric/adolescent dosage Nathan Kiesha DO Work Phone: [facility] 1995 trivalent poliovirus vaccine, live, oral Nathan Kiesha DO Work Phone: [facility] Payers Date Payer Category Payer Unknown 2022 Unknown [id number] 2022 Medicaid [id number] 2022 Private Health Insurance [id number] 2022 Self-pay 2020 Unknown [id number] 2018 Private Health Insurance [id number] 1995 Unknown [id number] 2.16.8 [id number] 1995 Unknown [id number] 2.16.8 [id number] 1995 Unknown [id number] 2.16.8 [id number] 1995 Unknown [id number] 2.16.8 [id number] 1995 Unknown [id number] 2.16.8 40.1.642631.3.579.2.7 1995 Unknown [id number] 2.16.8 [id number] 1995 Unknown [id number] 2.16.8 40.1.667467.3.579.2.7 1995 Unknown [id number] 2.16.8 40.1.672529.3.579.2.727 1995 Unknown [id number] 2.16.84 [id number] 1995 Unknown [id number] 2.16.84 0.1.914223.3.579.2.9 1995 Unknown [id number] 2.16.84 [id number] 1995 Unknown [id number] 2.16.84 0.1.085633.3.579.2.9 1995 Unknown [id number] 2.16.84 0.1.250723.3.579.2.1259 1995 Unknown [id number] 2.16.840 .1.142355.3.579.2.1259 Unknown [id number] 2.16.8 [id number] Unknown [id number] 2.16.8 [id number] Unknown [id number] 2.16.8 [id number] Social History Date Type Detail Facility Start: 07-16-2023 End: 12-10-2023 Always uses seat belt Always uses seat belt [facility] Start: 03-10-2021 End: 04-11-2023 Tobacco smoking status Never smoked tobacco (finding) [facility] Tobacco smoking status Never [facility] Start: 07-16-2023 End: 12-10-2023 Sex Assigned At Female [facility] Simple Emotionzeferino [employer] [place] Other Tobacco [facility] Comment on above: denies. Tobacco smoking status No Smokin g Status Entered [facility] Start: 04-11-2023 End: 05-01-2023 Tobacco use and exposure Smokeless tobacco non-user [facility] Start: 04-11-2023 End: 12-10-2023 Alcohol intake Current drinker of alcohol (finding) [facility] Start: 10-08-2020 Alcohol Comment maybe a few dr martinez a month [facility] Start: 1995 Sex Assigned At Not on file [facility] Start: 01-10-2024 Alcohol intake Lifetime non-d rome [...] Not at all [facility] (I/We) worried whemolly er (my/our) food would run out before (I/we) got money to buy more. Never true [facility] Start: 04-23-2023 Education 13 [facility] Start: 04-23-2023 Alcohol Comment caffeine: 1-2 cups per day, coffee and pop [facility] Functional Status Date Assessment Result Facility 09-12-2023 Functional Status N/A [facility] 01-31-2023 Functional Status N/A [facility] 12-30-2022 Functional Status N/A [facility] 11-27-2022 Functional Status N/A [facility] 07-14-2022 N/A [facility] Clinical Notes 04-18-2022 to 04-29-2024 Telephone Encounter - Christa Garces - 04/29/2024 8:23 AM EDTTelephone Encounter - Christa Garces - 04/29/2024 8:23 AM EDTTelephone Encounter - Anna De Leon - 04/25/2024 1:10 PM EDT Note Date & Type Note Facility 04-29-2024 Telephone encounter Note Received message from admin Anna Webb to cancel surgery and all appts as pt had services elsewhere [facility] 04-29-2024 Miscellaneous Notes Received message from admin Anna Webb to cancel surgery and all appts as pt had services elsewhere documented in this encounter [facility] 04-25-2024 Telephone encounter Note Pt got in sooner for surgery with her local inventory control specialist. Please cancel surgery and all pre and post op appts. [facility] 04-25-2024 Miscellaneous Notes Pt got in sooner for surgery with her local inventory control specialist. Please cancel surgery and all pre and post op appts. documented in this encounter [facility] 01-10-2024 History of Presen t illness Narrative [...] Dysmenorrhea 03/29/2023 Endometriosis 03/29/2023 Gastroparesis 03/29/2023 Hypertension ([facility]) 03/29/2023 Intractable migraine without aura and with status migrainosus ([facility]) 03/29/2023 Migraines ([facility]) 03/29/2023 Chronic pelvic pain in female 03/29/2023 Pain in female genitalia on intercourse 03/29/2023 Pain on swallowing 03/29/2023 Panic disorder ([facility]) 03/29/2023 Patellofemoral disorders, left knee 03/29/2023 Patellofemoral disorders, right knee 03/29/2023 Posterior calcaneal exostosis 03/29/2023 Scapular dyskinesis 03/29/2023 Scoliosis 03/29/2023 Seasonal allergic rhinitis due to pollen 03/29/2023 Tachycardia, paroxysmal ([facility]) 03/29/2023 Tension headache 03/29/2023 Vitamin B12 deficiency [...] History: Procedure Laterality Date APPENDECTOMY 05/2016 at [facility] 12/2022 [...] nursing note reviewed. Exam conducted with a customer success representative present. Vitals: Estimated body mass index is [...] Nathan Pop DO documented in this encounter [facility] 01-03-2024 Miscellaneous Notes Refill(s) request: Requested [...] mg tablet Class: Normal Route: ORAL Order: [id number] E-Prescribing Status: Receipt confirmed by pharmacy (05/17/2023 [...] that may recur and often requires a terminal system operator treatment plan. Once endometriosis is identified, there [...] Provider Department Center 05/20/2024 10:00 AM Kevin Pires Nurse [facility] 06/23/2024 10:30 AM Charlene Rodriguez DO GYMKiesha P[facility] Appointment scheduled: As listed above Action taken: Refill request routed to clinician Pippa Simon RN January 03, 2024 4:29 PM Patient: Driss Cope : 1995 Provider: Charlene Rodriguez DO Caller Phone #: [phone] (home) [phone] (cell) Reason for call: b/c refill Message routed to nurse triage Date of next visit: MEGAN: 12/10/2023 documented in this encounter [facility] 12-10-2023 Note HNO ID: [id number] Author: CHARLENE RODRIGUEZ DO Service: ? Author Type: Physician Type: Progress Notes Filed: 12/10/2023 15:14 Note Text: [facility] SECTION FOR MINIMALLY INVASIVE GYNECOLOGIC SURGERY OUTPATIENT VISIT DATE 12/10/2023 OUTPATIENT VISIT TYPE Follow-up visit PRIMARY CARE PHYSICIAN: rCuz Rodríguez [address] [place] [address] REFERRING PHYSICIAN: Self CHIEF COMPLAINT: No chief [...] agrees with treatment plan. Charlene Rodriguez DO In clinic today, pt reports she still has pain monthly but no bleeding. States Orilissa has not improved her pain. She continues to have cramping and discomfort. Has failed norethindrone and Orilissa. 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 [facility] 09-12-2023 Hospital Discharg e instructions Patient [...] Follow these instructions at home: Medicines Take uruq-wwb-uimgijd and prescription medicines only as told by [...] buy a blood pressure monitor at most [employer] or online. Where to find more information [employer]: www.heart.org Contact a health care [...] provider. Document Revised: 07/27/2022 Document Reviewed: 07/27/2022 [email or web address] Patient Education 2022 [employer]. 09/12/2023 18:18:13 Hypertension, Adult, Axvp-ig-Famw Hypertension, Adult Hypertension is another name for [...] doctor. Keep all follow-up visits. Medicines Take zdhg-lnp-otjntbs and prescription medicines only as told by [...] provider. Document Revised: 08/31/2022 Document Reviewed: 08/31/2022 [employer]One Patient Education 2022 [employer]. 09/12/2023 18:18:13 General Headache Without Cause, Xmul-kv-Llij General Headache Without Cause A headache is pain or discomfort you feel around the head or neck area. There are many causes and types of headaches. In some cases, the cause may not be found. Follow these instructions at home: Watch your condition for any changes. Let your doctor know about them. Take these steps to help with your condition: Managing pain Take okyy-wfu-ihghjrv and prescription medicines only as told by [...] provider. Document Revised: 04/12/2022 Document Reviewed: 04/12/2022 [employer]One Patient Education 2022 [employer]. Follow Up Care 09/12/2023 17:21:57 With:CRUZ RODRÍGUEZ [facility] [place] [address] Business (1) When:09/15/2023 18:03:37 Comments:Follow-up with your primary care provider in 3 to 5 days. If symptoms worsen, do not improve, or new symptoms arise please report back to emergency department for further evaluation. [facility] 09-12-2023 Evaluation + Plan note Extrac [...] date 09/12/23 18:02:00 EDT, 09/12/23 18:02:00 EDT [facility]10-16-2023 Instructions* Patient Instructions* Srinivasa Downs APRN.TERRAZZO LAYER HELPER - 09/10/2023 9:52 AM EDT Plan: Trial baclofen suppositories - can switch to pill vaginally if suppositories are not affordable Consider Pelvic floor physical therapy - can find local provider [email or web address] Consider going back to see Dr Kulidp Downs APRN.ANA LAURA [facility]23 NoteHNO ID: [id number] Author: Charlene Rodriguez DO Service: ? Author Type: Physician Type: Progress Notes Filed: 08/30/2023 11:15 AM Note Text: Tramadol rx sent to pharmacy.[facility]10-05-2023 History of Present illness Narrative* Charlene Rodriguez DO - 08/30/2023 11:13 AM EDT Tramadol rx sent to pharmacy. [facility] Miscellaneous Notes* Telephone Encounter - Chelsie Dueñas RN - 08/30/2023 10:50 AM EDT Last office visit: 08/24/2023 Assessment and Plan No diagnosis found. Trial baclofen suppositories Will send list of PTs Consider going back to [place] SIGNATURE: Srinivasa Downs APRN.CNP Office visit with Dr. Rodriguez 07/16/2023 IMPRESSION: [...] and agrees with treatment plan. Charlene Rodriguez, [facility]2023 NoteHNO ID: [id number] Author: Srinivasa Downs APRN.ANA LAURA Service: ? Author Type: Nurse Practitioner Type: Progress Notes Filed: 09/10/2023 9:53 AM Note Text: [facility] Department of Benign Gynecology [facility] PATIENT NAME: Driss Cope DATE: 08/24/2023 Patient Name and verified: Yes Patient Location: [place] This Virtual Visit was completed using My Chart Zoom platform. I have communicated my name and active licensure. The patient's identity and physical location were verified at the time of this visit. Either the patient or their legal underwriting sales representative has been informed of the risks [...] appointment yet. GI - constipation is improved Marvel - hasn't tried due to pain and [...] agrees with treatment plan. 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 [facility] Department of Benign Gynecology [facility] PATIENT NAME: Driss Cope DATE: 08/24/2023 Patient Name and verified: Yes Patient Location: [place] This Virtual Visit was completed using My Chart Zoom platform. I have communicated my name and active licensure. The patient's identity and physical location wereverified at the time of this visit. Either the patient or their legal underwriting sales representative has been informed of the risks [...] appointment yet. 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 Please call [phone] Message routed to nurse triage Date of next visit: [facility] Miscellaneous Notes* Telephone Encounter - Christa Suárez RN - 08/02/2023 11:29 AM EDT PA for orilissa completed via Cover MyMeds. Driss Cope (Morales: [id number]) - [id number] Orilissa 150MG tablets Status: Sent To Plan [...] too. Please advise. Thanks. documented in this encounterMercy [facility] Hospital08-21-2023 NoteHNO ID: [id number] Author: Charlene Rodriguez, DO Service: ? 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 Author Type: Lamp Shades Supervisor Type: Progress Notes Filed: 06/12/2023 4:32 PM [...] BY: RT Claudia(R) June 12, 2023 4:32 [facility]07-18-2023 NoteHNO ID: [id number] Author: Boo Singh RN Service: Nursing Author [...] Cope DATE: June 12, 2023 TIME: 1:43 [facility]06-22-2023 NoteHNO ID: [id number] Author: Charlene Rodriguez, DO Service: ? 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 Charlene Rodriguez DO Tt: [facility] History of Present illness Narrative* Charlene Rodriguez DO - 05/17/2023 1:05 PM EDT Images from the original note were not included. 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 Biggest complaint is cramping. Has had 3 periods of bleeding recently - 04/22/2023 LMP, last a few days, 05/04-05/10 bleeding again 05/11/2023 started again today. Takes aygestin 5mg daily. She did not rock picker flexeril. Encourage to rock picker the flexeril as this will help with the cramping. Reviewed red flag bleeding symptoms that require trip to ER (soaking greater than one overnight padper hour, chest pain, shortness of breath, fatigue, palpitations).. Advised keep appt. Gives verbal understanding. Appointments for Next 60 Days Date Time Provider Location Dept Phone 05/17/2023 1:00 PM CHARLENE RODRIGUEZ [facility] [phone] Christa Suárez, RN * [facility] [place] 05/11/2023 1:19 PM EDT Reason for call: other - Vaginal bleeding Provider name: Dr Rodriguez Additional comments: patient having more vaginal bleeding and concerned she is getting worse. Recommendation: routed to nurse triage pool documented in this encounterMercy [facility] Hospital06-06-2023 Instructions* Patient Instructions* Srinivasa Downs APRN.CNP - 05/01/2023 11:47 AM EDT Plan Pelvic floor physical therapy - or can go locally [employer] Trial flexeril at bedtime Can consider Baclofen suppositories - let me know if you want to trial after you go to PT Continue Norethindrone - can take up to 3 months for it to stop periods, take at same time every day Relaxation techniques Srinivasa Downs APRN.TERRAZZO LAYER HELPER Relaxation techniques for pain flares: Heating pads [...] pelvic pain society (pelvicpain.org) documented in this encounterMercy [facility] Hospital06-06-2023 History of Present illness Narrative* Srinivasa Downs APRN.ANA LAURA - 05/01/2023 10:30 AM EDT Driss Cope is a 28 year old female who presents for problem visit for pain HPI: Pain is week before period and week of period. Worse on her period for every day she's bleeding Urinary - No symptoms GI - Always constipated. 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 Author Type: Nurse Practitioner Type: Progress Notes Filed: 05/09/2023 11:46 AM Note Text: Driss Cope is a 28 year old female who presents for problem visit for pain HPI: Pain is week before period and week of period. Worse on her period for every day she's bleeding Urinary - No symptoms GI - Always constipated. 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 Lucila Foss RN documented in this encounterMercy [facility] Hospital03-08-2023 Hospital Discharge instructions Patient Education 01/31/2023 [...] told by your health care provider. Take gerr-wer-qfmecge and prescription medicines only as told by [...] 01/03/2007 Document Revised: 10/25/2018 Document Reviewed: 01/25/2018 g2One Patient Education 2020 [employer] Follow Up Care 01/31/2023 13:43:01 With:Cruz Meza Address:Unknown When:02/03/2023 18:59:31 Comments:Follow-up for evaluation of hypertension in context of known preeclampsia in the period With:CRUZ RODRÍGUEZ Address: [address] [place] [address] Business (1) When:Within 3 Day(s) [facility]03-08-2023 Evaluation + Plan noteExtracted from: Title:ED Note Author:Mayur Mabry PA-C e:01/31/23 Flank pain (R10.9: Unspecifi ed abdominal pain) Headache (R51.9: Headache, unspecified) Orders: CTA Chest Hepatic Function Panel [facility]02-04-2023 Hospital Discharge instructions Patient Education 12/30/2022 13:59:51 CHASSIS WIRER - Post D&C, Hysteroscopy, LEEP or Essure/Laparoscopy [...] Instructions - FT (Custom) (Custom) 12/30/2022 13:55:16 CHASSIS WIRER - Post D&C, Hysteroscopy, LEEP or Essure/Laparoscopy [...] With:Cruz Meza Address: [address], [place] [address]- Business (1) When: Unknown Comments:follow up in 1-2 weeks With:CRUZ RODRÍGUEZ Address: [address] [place] [address]- Business (1) When:01/02/2023 09:21:18 [facility]02-04-2023 Evaluation + Plan noteExtracted from: Title:ANES [...] Pre-operative Note Author:Bryant Agustin MD Date:12/30/22 Plan [place] [employer] Anesthesiologists (ASA) physical status classification: [...] With Cult Reflex US Pelvis Non-OB Complete [facility]01-07-2023 NoteDepartment of Obstetrics and Gynecology Delivery Discharge Summary Admission on 11/28/2022 12:24 AM Hospital course: Driss Cope at 35w1d admitted as a transfer from [facility] for PreEwSF. She was started on [...] Information for the patient's : Francie Cope [[id number]] female 2425 g (5 lb 5.5 oz) Apgars: Information for the patient's : Francie Cope [[id number]] : : Girl Blood Type/Rh: O Antibody [...] Your Medications These medications were sent to [facility] [address] [place] [id number] Hours: Sunday to Sunday 10 am to 6 pm docusate sodium 100 MG capsule ibuprofen 600 MG tablet NIFEdipine XL 30 MG 24 hr tablet Activity: Activity as tolerated Diet: Regular diet Follow-up Appointments: - visit - Blood pressure check If a patient meets criteria for hypertension, make sure the following are done prior to discharge: [] Order a blood pressure kit through [facility] (or the patient's own pharmacy on the weekend) [] Order the blood pressure log through [facility] [x] Place an office visit or telephone [...] notify her physician if any of these occur.[facility]01-05-2023 NotePatient: Driss Cope Procedure Summary Date: 11/29/22 [...] discharged once all PACU criteria has been met.[facility]01-05-2023 NotePatient: Driss Cope Procedure Summary Date: 11/29/22 [...] Allowed opportunity for questions and acknowledgement of understanding.[facility]01-04-2023 NoteEpidural Block Time Out: 11/29/2022 6:17 PM Patient location during procedure: OB Start time: 11/29/2022 6:18 PM End time: 11/29/2022 6:45 PM Reason for block: labor analgesia Staffing Performed: PATIENT RESOURCE SPECIALIST Resident/PATIENT RESOURCE SPECIALIST: Jimmie Kaur APRN - JASMYN Preanesthetic Checklist [...] patient tolerated procedure well with no immediate complicationsDetroit Receiving Hospital01-03-2023 NotePatient: Driss Cope Procedure Information Date: [...] products. patient is not NPO Additional Equipment [facility]01-03-2023 NoteLabor Progress Note Date: 11/28/2022 Time: 2:14 [...] time. FHT cat I and reassuring. CCM. Cx:/-3 FHT: Cat 1 Boaz:q3-4 min A/P: 1. IOL-PreEwSF. FHT 130 baseline, with moderate variability, Accelerations present Yes, and rare late deceleration . Cervical exam unchanged. Cytotec x4 placed at this time. Patient intermittently feeling contractions. BP mild range. Cx: 1-/-3 FHP: defer FHT: Cat I Boaz: a3-4min A/P: 1. IOL-PreEwSF: FHT Category I, [...] Cx: unchanged FHP: defer FHT: Cat I Boaz: q4min A/P: 1. IOL-PreEwSF: FHT Category I, with moderate variability, accelerations present, and decelerations absent. Blood pressure mild. UOP adequate. Cytotec #6 placed at this time. Magnesium running for seizure prophylaxis. PRINCE BRADY, DO 11/29/2022 1:42 AM Cat I for past 4 hours. Cytotec time is up. Although discussed with Dr Keita patient will eat breakfast at this time. Plan for SVE after. PRINCE BRADY, DO 11/29/2022 6:17 AM Cx:1-2/60/-3 FHT: Cat I Boaz:q4-5mins A/P: 1. IOL-PreEwSF: Cat I FHT with [...] per protocol. CCM. Cx:defer FHT: Cat I Boaz:q4-6mins A/P: 1. IOL-PreEwSF: Cat I FHT with baseline 120, moderate variability, spontaneous accelerations, and no decelerations. BP normotensive to mild range since last note time. Pitocin @ 2 cc/hr, continue to titrate per protocol. Magnesium sulfate running for seizure prophylaxis, UOP 400 ml over past 4 hours. CCM. Cx:defer FHT: Cat I Boaz:q4-5mins A/P: 1. IOL-PreEwSF: Cat I FHT with baseline 135, moderate variability, spontaneous accelerations, and no decelerations. BP normotensive to mild range since last note time. Pitocin @ 6 cc/hr, continue to titrate per protocol. Magnesium sulfate running for seizure prophylaxis, UOP 600 ml over past 4 hours. Will plan for AROM soon. CCM. Cx:defer FHT: Cat I Boaz:irritability A/P: 1. IOL-PreEwSF: Pit @ 8 mu/min. Patient resting comfortably and only irritability tracing on toco. BP most recently mild range. On magnesium sulfate for seizure prophylaxis. UOP adequate. Continue magnesium and continue to titrate pitocin per protocol. Plan for AROM once patient rudi more regularly. Electronically signed by Cortney Velasquez DO 11/29/2022 4:21 PM Cx:/-3 FHT: Cat 1 Boaz:Not tracing A/P: 1. IOL-PreEwSF. FHT 135 baseline, with moderate variability, Accelerations present Yes, and no decelerations seen . AROM at this time for moderate amount blood tinged fluid. Pitocin at 8cc/hr. Maternal BP mild range. On Magnesium for Seizure prophylaxis. Patient with adequate urinary output. CCM. Cx: defer FHP: defer FHT: Cat II Boaz: not tracing well A/P: 1. IOL-PreEwSF: FHT Category II for brief period of lates vs early deceleration (more content not included)...[facility]01-03-2023 NoteObstetrical History and Physical CHIEF COMPLAINT: [...] 34w6d Is this patient being delivered between 06r8p-64u4h weeks with an acceptable medical indication (obstetric, maternal, and/or )? NA: Not Applicable: This patient is being delivered outside of the PC-01 range (63y6s-56x0e) for reasons indicated in the medical record. [...] Housing Stability: Not on file Family History: @[facility]@ Medications Prior to Admission: No medications prior [...] VTE Prophylaxis: Not Indicated (more content not included)...[facility]01-03-2023 NoteThe following Patient Education Materials have been given to the patient: [facility]01-02-2023 NotePatient: DRISS COPE Age: 27 years Sex: [...] case with the maternal- medicine department at [facility], Dr. Thea Nieves, she accepted to transfer due to preeclampsia. Plan: Magnesium sulfate per protocol, betamethasone, transfer arrangements are in progress..[facility] ColumbusComment on above:Result Comment: Electronically Signed By: Fredi DORSEY MD\.br\Date and Time Signed: 11/27/22 21:08 [id number] Evaluation + Plan noteExtracted from: Title:OB High Risk Antepartum Visit * Author:Fredi HOANG MD Date:11/27/22 Impression and Plan Diagnosis 34 weeks 5 days. Preeclampsia. contractions. Maternal tachycardia.. Course: Worsening, New onset headache may be a signal of worsening symptoms of preeclampsia.. Orders I discussed this case with the maternal- medicine department at [facility], Dr. Thea Nieves, she accepted to transfer due to preeclampsia. Plan: Magnesium sulfate per protocol, betamethasone, transfer arrangements are in progress.. [facility]08-19-2022 Evaluation + Plan noteExtracted from: Title:ED [...] Colace and Proctofoam and follow-up with her CHASSIS WIRER physician in the outpatient setting. She is provided with a note for work. Additional diagnosis: Constipation, UTI and [facility]08-19-2022 Hospital Discharge instructions Follow Up Care 07/14/2022 06:07:36 With:Cruz Meza Address:Unknown When:07/17/2022 07:24:48 With:CRUZ RODRÍGUEZ Address: [address] [place] [address]- Business (1) When:Within 3 Day(s) [facility]08-19-2022 Hospital Discharge instructions Follow Up Care 07/14/2022 04:40:16 With:Cruz Meza Address: [address] [place] [address]- Business (1) When:07/17/2022 Comments:Appointment has already been scheduledCall Dr if fever>100.5 F, heavy bleedingCall for any problems.Call for severe abdominal painCall physician for heavy vaginal bleedingCall physician if symptoms worsenPlease call if you need to rescheduleReturn for contractions closer, longer, harderReturn ifruptured membranes or vaginal bleeding [facility]05-31-2022 Evaluation + Plan note Diagnostic Tests Pending * Gwrta-0-Evpxzvehtaw 04/25/22 * NIGEL w/Reflex if POS 04/25/22 * Ceruloplasmin 04/25/22 * HCV Antibody RFX to Quant PCR 04/25/22 * HBV Core Ab 04/25/22 * Hepatitis B Surface Antibody 04/25/22 * Hepatitis B Surface Antigen 04/25/22 * Smooth Muscle Antibody Screen 04/25/22 [facility]05-24-2022 Evaluation note* Encounter Date Diagnosis Assessment Notes Treatment Notes Treatment Clinical Notes March, Elevated liver function tests (ICD-10 - R79.89) LABS INDICATED ABOVE FIBROSCAN [place] Other Evaluation note* Diagnosis Pelvic pain in female- Primary Unspecified symptom associated with female genital organs [facility]* Diagnosis Chronic pelvic pain in female- Primary Unspecified symptom associated with female genital organs Constipation, unspecified constipation type High-tone pelvic floor dysfunction Other specified disorders of female genital organs Diastasis of rectus abdominis Dysmenorrhea Other specified dyspareunia documented [facility] this [facility]* Diagnosis Endometriosis- Primary Endometriosis, site unspecified Pelvic and perineal pain Unspecified symptom associated with female genital organs documented [facility]* Diagnosis Pelvic pain in female- Primary Unspecified symptom associated with female genital organs documented [facility]* Diagnosis Pelvic pain in female- Primary Unspecified symptom associated with female genital organs documented [facility] this [facility]* Diagnosis High-tone pelvic floor dysfunction- Primary Other specified disorders of female genital organs Chronic pelvic pain in female Unspecified symptom associated with female genital organs [facility]* Diagnosis Pelvic and perineal pain Unspecified symptom associated with female genital organs [facility]* Diagnosis Menorrhagia with regular cycle Pelvic pain in female Unspecified symptom associated with female genital organs Uses control documented [facility] this [facility] N[facility]ative - Reported* Type Description Date Medical History headache Surgical History appendectomy Surgical History shoulder surgery Surgical History endometriosis [place] Other History of Present illness Narrative* 26 yo presents as a follow up for endometriosis * pain worsening recently * states she is not bleeding but is having cramping and new dyspareunia * 2019 - lx excision of endo * cramping [...] engaged x 1 year * working at [employer] in [place] [address] Work Phone: Hospital course Narrative No data available for this section [facility] No data available for this section [facility] No data available for this section [facility] HospitalReason for visit NarrativePT HERE AT REQUEST OF DR RODRÍGUEZ FOR EVALUATION AND TREATMENT OF ELVATED LIVER FUNCTION- ( DR. SAMUEL PT), LABS FROM DR RODRÍGUEZ REVIEWED BY DR Iraheta [employer] Other Summary Purpose Family History No Family [...] Bilateral ureterolysis Surgeon: Dr. Charlene Rodriguez Resident/Fellow/Other Batch Maker: Glory Palacio Anesthesia: general I.V. Fluids: 500 [...] to discuss pain related to endometriosis, declined customer success representative. 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 Reason for Referral Specialty Diagnoses / Procedures Referred By Michaela house Referred To Contact MR IMAGING Diagnoses Pelvic and perineal pain Procedures MRI FEMALE PELVIS WO/W IVCON MRI PELVIS W/O & W/CONTRAST MATERIAL Charlene Rodriguez, [address] [facility] [address] [place] [address] Mr Imaging Referral ID Status Reason Start Date Expiration Date Visits Requested Visits Authorized [id number] Authorized Auto-Generat ed Referral 05/17/2023 06/15/2024 1 1 Specialty Diagnoses / Procedures Referred By Michaela house Referred To Contact [facility] Diagnoses Constipation, unspecified constipation type High-tone pelvic floor dysfunction Diastasis of rectus abdominis Dysmenorrhea Other specified dyspareunia Chronic pelvic pain in female Procedures CONSULT TO PHYSICAL THERAPY PHYSICAL THERAPY EVALUATION HIGH COMPLEX 45 MINS Srinivasa Downs, JAMI.TERRAZZO LAYER HELPER [address] [facility] [place] [address] [facility] [place] [address] [place] [id number] Referral ID Status Reason Start Date Expiration Date Visits Requested Visits Authorized [id number] Pending Review Auto-Generat ed Referral 05/01/2023 04/30/2024 1 1 Additional Source Comments INFORMATION SOURCE (unrecogn ized section and content) DATE CREATED AUTHOR 10/26/2020 [facility] DATE CREATED AUTHOR AUTHOR'S ORGANIZ ATION 11/06/2020 [facility] DATE CREATED AUTHOR AUTHOR'S ORGANIZ ATION 12/17/2020 [facility] DATE CREATED AUTHOR AUTHOR'S ORGANIZ ATION 04/21/2021 [facility] DATE CREATED AUTHOR AUTHOR'S ORGANIZ ATION 06/05/2021 [facility] DATE CREATED AUTHOR AUTHOR'S ORGANIZ ATION 10/02/2021 [facility] DATE CREATED AUTHOR AUTHOR'S ORGANIZ ATION 02/10/2022 [employer] DATE CREATED AUTHOR AUTHOR'S ORGANIZ ATION 12/05/2022 [facility] DATE CREATED AUTHOR AUTHOR'S ORGANIZ ATION 04/05/2023 [facility] DATE CREATED AUTHOR AUTHOR'S ORGANIZ ATION 09/14/2023 [facility] ical Center DATE CREATED AUTHOR AUTHOR'S ORGANIZ ATION 04/30/2024 [facility] DATE CREATED AUTHOR AUTHOR'S ORGANIZ ATION 07/24/2024 [facility] Special[facility] Care Team (unrecognized sect ion and content) Center Director Lead Teacher Relationship Specialty Start Date End Date Cruz Rodríguez MD [address] [place] [phone] PCP - General Family Medicine 12/03/14 Center Director Lead Teacher Relationship Specialty Start Date End Date Cruz Rodríguez MD [address] [place] [phone] PCP - General Family Medicine 12/03/14 Center Director Lead Teacher Relationship Specialty Start Date End Date Cruz Rodríguez MD [address] [place] [phone] PCP - General Family Medicine 12/03/14 Center Director Lead Teacher Relationship Specialty Start Date End Date Cruz Rodríguez MD [address] [place] [phone] PCP - General Family Medicine 12/03/14 Center Director Lead Teacher Relationship Specialty Start Date End Date Cruz Rodríguez MD [address] [place] [phone] PCP - General Family Medicine 12/03/14 Center Director Lead Teacher Relationship Specialty Start Date End Date Cruz Rodríguez MD [address] [place] [address] PCP - General Family Medicine 12/03/14 Center Director Lead Teacher Relationship Specialty Start Date End Date Cruz Rodríguez MD [address] [place] [address] PCP - General Family Medicine 12/03/14 Center Director Lead Teacher Relationship Specialty Start Date End Date Cruz Rodríguez MD [address] [place] [address] PCP - General Family Medicine 12/03/14 Center Director Lead Teacher Relationship Specialty Start Date End Date Cruz Rodríguez MD [address] [place] [phone] PCP - General Family Medicine 12/03/14 Center Director Lead Teacher Relationship Specialty Start Date End Date Cruz Rodríguez MD [address] [place] [address] PCP - General Family Medicine 12/03/14 Center Director Lead Teacher Relationship Specialty Start Date End Date Cruz Rodríguez MD [address] [place] [address] PCP - [employer] 09/26/21 Cruz Rodríguez MD [address] [place] [address] PCP - General Family Medicine 04/10/23 Cruz Rodríguez MD [address] [place] [address] PCP - [facility] 02/24/23 Zenobia East NP [address] [place] [address] Nurse Practitioner Family Medicine 10/05/23 Trista Thao NP [address] [place] [id number] Nurse Practitioner Pulmonary Disease 10/05/23 Center Director Lead Teacher Relationship Specialty Start Date End Date Cruz Rodríguez MD [address] [place] [phone] PCP - General Family Medicine 12/03/14 Center Director Lead Teacher Relationship Specialty Start Date End Date Cruz Rodríguez MD [address] [place] [id number] PCP - General Family Medicine 12/03/14 Source Comments (unrecognize d section and content) In the event this informatio n is protected by the Federal Confidentiality of Alcohol and Drug Abuse Patient Records regulations: The Federal rules restrict any use of the information to criminally investigate or prosecute any alcohol or drug abuse patient.[facility] the event this information is protected by the Federal Confidentiality of Alcohol and Drug Abuse Patient Records regulations: The Federal rules restrict any use of the information to criminally investigate or prosecute any alcohol or drug abuse patient.[facility] the event this information is protected by the Federal Confidentiality of Alcohol and Drug Abuse Patient Records regulations: The Federal rules restrict any use of the information to criminally investigate or prosecute any alcohol or drug abuse patient.[facility] the event this information is protected by the Federal Confidentiality of Alcohol and Drug Abuse Patient Records regulations: The Federal rules restrict any use of the information to criminally investigate or prosecute any alcohol or drug abuse patient.[facility] HospitalIn the event this information is protected by the Federal Confidentiality of Alcohol and Drug Abuse Patient Records regulations: The Federal rules restrict any use of the information to criminally investigate or prosecute any alcohol or drug abuse patient.[facility] HospitalIn the event this information is protected by the Federal Confidentiality of Alcohol and Drug Abuse Patient Records regulations: The Federal rules restrict any use of the information to criminally investigate or prosecute any alcohol or drug abuse patient.[facility] HospitalIn the event this information is protected by the Federal Confidentiality of Alcohol and Drug Abuse Patient Records regulations: The Federal rules restrict any use of the information to criminally investigate or prosecute any alcohol or drug abuse patient.[facility] HospitalIn the event this information is protected by the Federal Confidentiality of Alcohol and Drug Abuse Patient Records regulations: The Federal rules restrict any use of the information to criminally investigate or prosecute any alcohol or drug abuse patient.[facility] HospitalIn the event this information is protected by the Federal Confidentiality of Alcohol and Drug Abuse Patient Records regulations: The Federal rules restrict any use of the information to criminally investigate or prosecute any alcohol or drug abuse patient.[facility] HospitalIn the event this information is protected by the Federal Confidentiality of Alcohol and Drug Abuse Patient Records regulations: The Federal rules restrict any use of the information to criminally investigate or prosecute any alcohol or drug abuse patient.[facility] HospitalIn the event this information is protected by the Federal Confidentiality of Alcohol and Drug Abuse Patient Records regulations: The Federal rules restrict any use of the information to criminally investigate or prosecute any alcohol or drug abuse patient.[facility] HospitalIn the event this information is protected by the Federal Confidentiality of Alcohol and Drug Abuse Patient Records regulations: The Federal rules restrict any use of the information to criminally investigate or prosecute any alcohol or drug abuse patient.[facility] HospitalIn the event this information is protected by the Federal Confidentiality of Alcohol and Drug Abuse Patient Records regulations: The Federal rules restrict any use of the information to criminally investigate or prosecute any alcohol or drug abuse patient.[facility] HospitalIn the event this information is protected by the Federal Confidentiality of Alcohol and Drug Abuse Patient Records regulations: The Federal rules restrict any use of the information to criminally investigate or prosecute any alcohol or drug abuse patient.[facility] HospitalIn the event this information is protected by the Federal Confidentiality of Alcohol and Drug Abuse Patient Records regulations: The Federal rules restrict any use of the information to criminally investigate or prosecute any alcohol or drug abuse patient.[facility] Reason for Visit (unrecogniz ed section and content) Reason Comments Menstrual Problem Reason Comments Vaginal Bleeding Reason Comments Endometriosis Reason Comments Insurance Authorization [place] Reason Comments Pelvic Pain Specialty Diagnoses / Procedures Referred By Contac t Referred To Contact ARCHAEOLOGY PROFESSOR / GYNECOLOGY Diagnoses Painful menstrual periods Painful Periods Procedures OFFICE/OUTPATIENT ESTABLISHED SF MDM 10-19 MIN EST WHI PATIENT Srinivasa Downs, HOT STICK WORKER.TERRAZZO LAYER HELPER [address] [place] [id number] Srinivasa Downs, HOT STICK WORKER.TERRAZZO LAYER HELPER [address] [place] [id number] Referral ID Status Reason Start Date Expiration Date V isits Requested Visits Authorized [id number] Authorized 08/20/2023 11/25/2023 1 99 Reason Comments Radiology MRI Specialty Diagnoses / Procedures Referred By Contac t Referred To Contact MR IMAGING Diagnoses Pelvic and perineal pain Procedures MRI FEMALE PELVIS WO/W IVCON MRI PELVIS W/O & W/CONTRAST MATERIAL Charlene Rodriguez, DO [address] [facility] [address] [place] [address] [place] [id number] Referral ID Status Reason Start Date Expiration Date V isits Requested Visits Authorized [id number] Closed Auto-Generate d Referral 05/17/2023 06/15/2024 1 1 Reason Onset Date Comments Refill Request 01/02/2024 Reason Comments Menorrhagia Cramping with bleedi ng Reason Comments Surgery Cancelled FOR RECORDS PERTAINING TO PATIENTS WHO ARE [...] BE BASED ON THE PRIMARY CLINICAL RECORDS. [employer] provides no warranty or guarantee of the accuracy or completeness of information in this document.
== END 2024-08-18 20:41 | disposition home or self-care (01) ==
LOC: LAB 20:40
PROVIDERS: Family Provider Family Medicine; Visit Provider Obstetrics & Gynecology
DX: Z01.419 Encounter for gynecological examination (general) (routine) without abnormal findings (principal)
CPT/HCPCS: 88175

== ENCOUNTER 2025-05-01 08:27 | Outpatient (OUT) | payer OTHER, SELFPAY ==
--- NOTE | 2025-05-01 08:31 | US_ITS ---
[address] [address] Patient Name: JUHI COPE MRN: [id number] date: 1995 Sex: F Assigned Patient Location: [place] Current Patient Location: [place] Accession/Order Number: [id number] Exam Date: 05/01/2025 08:57 Report Date: 05/01/2025 09:01 At the request of: JONY MEJÍA DO Procedure: US OB transvaginal US OB transvaginal 05/01/2025 8:51 AM SIGNS AND SYMPTOMS: Missed Menses, Positive COMPARISON: None. TECHNIQUE: Limited pelvic ultrasound using transvesical sonography. FINDINGS: An early intrauterine is identified. The visualized pole has an estimated gestational age of 9 weeks and 2 days by crown-rump length which measures 2.52 cm . A heart rate is identified at 166 bpm. A normal amount of amniotic fluid is present. There is a small crescentic area of hypoattenuation adjacent to a placenta measuring 1.6 x 0.9 x 0.4 cm suggesting implantation hemorrhage. Pelvic survey reveals no gross abnormalities. A presumed corpus luteum cyst is noted in the right adnexa. US/US OB transvaginal IMPRESSION: Single live IUP with an estimated gestational age of 9 weeks and 2 days with a normal heart rate. There is a small crescentic area of hypoattenuation adjacent to a placenta measuring 1.6 x 0.9 x 0.4 cm suggesting implantation hemorrhage. Impression dictated by: Will Faria M.D. 05/01/2025 9:01 AM Dictation Location: [place] [address] Electronically authenticated by: [id number] Y Date: 05/01/2025 09:01
--- OUTSIDE RECORDS SUMMARY | 2025-05-01 08:50 | XMS_ITS | CCD ---
Author Organization [facility] Care Team Providers Care Road Boss Name Role Phone Unavailable Unavailable OPAL LARA Referring Unavailable RODRÍGUEZ, CRUZ Primary Care Unavailable POCOPAL QUINTEROS Referring Unavailable RODRÍGUEZ, CRUZ Primary Care Unavailable RODRÍGUEZ CRUZ Primary Care Physician [phone] Domo Hodges Unavailable TONIA DIALLO Attending Unavailable RITU RYDER Admitting Unavailable RITU RYDER Attending Unavailable Cruz Rodríguez MD Primary Care Provider [phone] Cruz Rodríguez MD Unavailable Cruz Rodríguez MD Primary Care Provider Cruz Rodríguez MD Unavailable Kita [employer] ASSEMBLER, Zenobia Unavailable Keesha SHEPARD, Trista R Unavailable Cruz Rodríguez MD Primary Care Provider CHARLENE RODRIGUEZ Referring Unavailable RODRÍGUEZ, CRUZ SAHIL Primary Care Unavailable CHARLENE RODRIGUEZ Attending Unavailable RODRÍGUEZ, CRUZ SAHIL Referring Unavailable RODRÍGUEZ, CRUZ SAHIL Primary Care Unavailable BILLCHARLENE JIMENEZ Attending Unavailable RODRÍGUEZ, CRUZ SAHIL Primary Care Unavailable RODRÍGUEZ, CRUZ SAHIL Primary Care Unavailable BILLCHARLENE JIMENEZ Attending Unavailable REAPER, SRINIVASA Referring Unavailable REAPER, SRIINVASA Attending Unavailable RODRGÍUEZ, CRUZ SAHIL Primary Care Unavailable RODRÍGUEZ, CRUZ SAHIL Primary Care Unavailable REAPER, SRINIVASA Attending Unavailable Unavailable Primary Care Provider Unavailbreanan e Nay Beltran DO Primary Care Provider NAY BELTRAN Attending Unavailable NATHAN POP Attending Unavailable NATHAN POP Attending Unavailable NAY BELTRAN Attending Unavailable CRUZ RODRÍGUEZ Referring Unavailable ZENOBIA GUTIERREZ Attending Unavailable NATHAN POP Attending Unavailable KIESHA, NATHAN Attending Unavailable NAY MALONEY Primary Care Physician UnavailCruz Bonilla MD Primary Care Provider Nathan Pop DO Attending Provider [phone] Kiesha, Nathan Admitting Unavailable Kiesha, Nathan Attending Unavailable Cruz Rodríguez Primary Care Unavailable KIESHA, Nathan R Attending Unavailable KIESHA, Nathan R Referring Unavailable KIESHA, Nathan R Admitting Unavailable KIESHA, Nathan R Attending Unavailable KIESHA, Nathan R Admitting Unavailable KIESHA, Nathan R Attending Unavailable KIESHA, Nathan R Admitting Unavailable Allergies Allergy Classification Reported Allergen(s) Allergy Type Date of Onset Reaction(s) Facility (1 source) No Known Medication Allergies; Translations: [No Known Medication Allergies] Propensity to adverse reactions (disorder) [facility] Repository Medications Current Medications Medication Drug Class(es) Dates Sig (Normalized) Sig (Original) acetaminophen 325 mg / butalbital 50 mg / caffeine 40 mg oral tablet (12 sources) Barbiturate, Central Nervous System Stimulant, Methylxanthine Start: 02-19-2024 take 1 tablet by mouth every six hours for headache butalbital-acetam inophen-caffeine 50-325-40 MG tablet Indications: Other migraine without status migrainosus, not intractable (CMS/HCC) Take 1 tablet by mouth every 6 (six) hours if needed for headaches 20 tablet 02/19/2024 Active atenolol 25 mg oral tablet (4 sources) beta-Adrenergic Negro Start: 02-02-2021 take 1 mg by mouth once daily atenolol 25 mg Tab mg tab(s), Oral, Daily, Refills(s) 0 Start Date: 02/02/21 Status: Ordered Start: 08-06-2017 End: 10-16-2018 take 1 tablet by mouth once daily Atenolol 50 mg tablet Discontinued 50 MG PO Daily August 06, 2017 12:00am October 16, 2018 3:34pm baclofen suppository 10 mg (CPD) (8 sources) Start: 08-24-2023 baclofen suppository 10 mg (CPD) Indications: High-tone pelvic floor dysfunction , Chronic pelvic pain in female Unwrap and insert one suppository vaginally daily at bedtime. 30 Suppository 2 08/24/2023 Active Comment on above: Unwrap and insert on e suppository vaginally daily at bedtime. cephalexin 500 mg oral capsule (6 sources) Cephalosporin Antibacterial Start: 02-14-2021 End: 07-21-2022 take 1 capsule by mouth every twelve hours Keflex 500 mg Cap 500 mg = 1 cap(s), Oral, q12hr, X 7 day(s), # 14 cap(s), Refills(s) 0 Start Date: 07/14/22 Stop Date: 07/21/22 Status: Ordered Start: 03-14-2019 End: 08-04-2019 take 1 capsule by mouth every twelve hours Cephalexin (Keflex) 500 mg capsule Discontinued 500 MG PO Q12H 14 7 March 14, 2019 12:00am August 04, 2019 8:18am cyclobenzaprine hydrochloride 5 mg oral tablet (20 sources) Muscle Relaxant Start: 12-30-2024 End: 01-09-2025 take 1 tablet by mouth in the morning, then take 1 tablet by mouth in the evening, then take 1 tablet by mouth at bedtime cyclobenzaprine (Flexeril) 5 MG tablet Indications: Chronic right shoulder pain , Scapular dyskinesis Take 1 tablet (5 mg) by mouth in the morning and 1 tablet (5 mg) in the evening and 1 tablet (5 mg) before bedtime. Do all this for 10 days. 30 tablet 12/30/2024 01/09/2025 Active Start: 05-01-2023 End: 01-10-2024 take 1 tablet [...] Weight Dosing Start Date: 01/23/22 Status: Ordered Quantity: 30.0 Unit: tab(s) Repeat number: 1 Comment on above: Take 1 tablet by ghada th at bedtime as needed. cyproheptadine hydrochloride 4 mg oral tablet (10 sources) Start: 02-03-20 take 1 mg by mouth three times daily cyproheptadine 4 mg Tab mg tab(s), Oral, TID, Refills(s) 0 Start Date: 02/02/21 Status: Ordered Repeat number: 1 Dasetta oral tablet (1 source) Start: 11-23-20 take 1 tablet by mouth once daily Dasetta oral tablet 1 tab(s), Oral, Daily, Refill(s) 0, control/menstrual regulation Start Date: 11/23/16 Status: Ordered docusate sodium 100 mg oral capsule (7 sources) Start: 11-30-19 End: 12-31-19 take 1 capsule by mouth twice daily as needed for constipation Docusate Sodium (DSS) 100 MG capsule Take 1 capsule (100 mg) by mouth 2 times daily as needed for constipation (Vaginal Delivery) for up to 10 days. 60 capsule 0 12/01/2022 12/31/2022 Active Start: 07-14-2022 End: 07-24-2022 take 1 capsule by mouth twice daily Colace 100 mg Cap 100 mg = 1 cap(s), Oral, BID, X 10 day(s), # 20 cap(s), Refills(s) 0 Start Date: 07/14/22 Stop Date: 07/24/22 Status: Ordered elagolix 150 mg oral tablet (13 sources) Start: 07-16-2023 End: 07-15-2024 take 1 tablet by mouth once daily [...] 02/02/21 Status: Ordered Ethinyl Estradiol / Levonorgestrel (8 sources) Progestin, Estrogen, Progestin-containing Intrauterine Device Start: 04-03-2024 End: 08-18-2024 levonorgestrel-ethinyl estradiol (Jolessa) 0.15-0.03 MG tablet Indications: Uses control TAKE 1 TABLET BY MOUTH EVERY MORNING 91 tablet 3 04/03/2024 08/18/2024 Discontinued (Other) Start: 04-03-2024 levonorgestrel -ethinyl estradiol (Jolessa) 0.15-0.03 MG tablet Indications: Uses control TAKE 1 TABLET BY MOUTH EVERY MORNING 91 tablet 3 04/03/2024 Active Start: 01-10-2024 End: 04-09-2024 take 1 tablet by mouth in the morning, then take 1 tablet by mouth once daily levonorgestrel-ethinyl estradiol (Jolessa) 0.15-0.03 MG tablet Indications: Uses [...] Daily, Refill(s) 0, control/menstrual regulation Start Date: 12/29/16 Status: Ordered ethinyl estradiol 0.035 mg / norgestimate 0.25 mg oral tablet (4 sources) Progestin, Estrogen Start: 01-15-2023 norgestimate-ethinyl estradiol (Ortho-Cyclen) 0.25-35 MG-MCG tablet 1 (one) time each day at the same time. 0 01/15/2023 Active Start: 08-04-2019 take 1 tablet by ghada once daily Norgestimate-Ethinyl Estradiol 0.25-35 mg-mcg tablet Active 1 TAB PO Daily August 04, 2019 12:00am Donley-Linyah 0.25 -35 MG-MCG Oral for 28 Not-Taking hydrOXYzine hydrochloride 25 mg oral tablet (10 sources) Antihistamine Start: 02-02-2021 take 1 mg by mouth four times daily hydrOXYzine hydrochloride 25 mg Tab mg tab(s), Oral, QID, Refills(s) 0 Start Date: 02/02/21 Status: Ordered Repeat number: 1 hyoscyamine sulfate 0.125 mg oral tablet (10 sources) Start: 03-10-2021 take 1 tablet by mouth every six hours Levsin 0.125 mg SL Tab 0.125 mg = 1 tab(s), Oral, q6hr, # 20 tab(s), Refills(s) 1, [facility]: [facility], 161, cm, 03/10/21 11:21:00 EDT, Height/Length Dosing, 56, kg, 03/10/21 11:21:00 EDT, Weight Dosing Start Date: 03/10/21 Status: Ordered Quantity: 20.0 Unit: tab(s) Repeat number: 2 ibuprofen 600 mg oral tablet (15 sources) Nonsteroidal Anti-inflammatory Drug Start: 01-23-2022 End: 12-24-2022 take 1 tablet by mouth every six hours ibuprofen 600 mg Tab 600 mg = 1 tab(s), Oral, q6hr, # 40 tab(s), Refills(s) 0, [facility]: [facility], 157, cm, 01/23/22 7:20:00 EST, Height/Length Dosing, 55, kg, 01/23/22 7:20:00 EST, Weight Dosing Start Date: 01/23/22 Status: Ordered Quantity: 40.0 Unit: tab(s) Repeat number: 1 iv contrast (will be provided with radiology [...] guidelines link. meloxicam 15 mg oral tablet (8 sources) Nonsteroidal Anti-inflammatory Drug Start: 12-30-2024 End: 12-30-2025 take 1 tablet by mouth once daily meloxicam (Mobic) 15 MG tablet Indications: Chronic right shoulder pain , Scapular dyskinesis Take 1 tablet (15 mg) by mouth Daily 30 tablet 3 12/30/2024 12/30/2025 Active Start: 02-02-2021 take 1 mg by mouth once daily meloxicam 15 mg oral tablet mg tab(s), Oral, Daily, Refills(s) 0 Start Date: 02/02/21 Status: Ordered 24 hr metoprolol succinate 25 mg extended release oral tablet (20 sources) beta-Adrenergic Negro Start: 10-15-2024 End: 12-30-2024 take 1 tablet by mouth once daily metoprolol succinate XL (Toprol-XL) 25 MG 24 hr tablet Indications: Hypertension, unspecified type (CMS/HCC) Take 1 tablet by mouth daily 90 tablet 1 12/30/2024 Active Start: 04-23-2024 take 1 tablet by ghada th once daily metoprolol succinate XL (Toprol-XL) 25 MG 24 hr tablet Indications: Hypertension, unspecified type (CMS/HCC) Take 1 tablet by mouth daily 90 tablet 1 04/23/2024 Active Start: 10-23-2023 take 1 tablet by ghada th once daily metoprolol succinate XL (Toprol-XL) 25 MG 24 hr tablet Indications: Hypertension, unspecified type (CMS/HCC) Take 1 tablet by mouth daily 90 tablet 1 10/23/2023 Active Start: 02-27-2023 metoprolol suc cinate ER (TOPROL XL) 25 mg 24 hr tablet naproxen 500 mg delayed release oral tablet (20 sources) Nonsteroidal Anti-inflammatory Drug Start: 11-07-2021 take 1 tablet by mouth twice daily naproxen 500 mg oral enteric coated tablet 500 mg = 1 tab(s), Oral, BID, # 28 tab(s), Refills(s) 0 Start Date: 11/07/21 Status: Ordered Quantity: 28.0 Unit: tab(s) Repeat number: 1 Start: 03-04-2021 End: 07-10-2023 take 1 tablet by mouth twice daily naproxen 500 mg Tab 500 mg = 1 tab(s), Oral, BID, Take one tab by mouth two times a day, # 14 tab(s), Refills(s) 0, Pharmacy: [facility], 157, cm, 03/04/21 7:22:00 EDT, Height/Length Dosing, 52, kg, 03/04/21 7:22:00 EDT, Weight Dosing Start Date: 03/04/21 Status: Ordered Quantity: 14.0 Unit: tab(s) Repeat number: 1 Start: 11-02-2018 End: 03-12-2019 take 1 tablet by mouth twice daily as needed for pain Naproxen (Naprosyn) 500 mg tablet Discontinued 500 MG PO Twice daily as needed for pain November 02, 2018 1:00am March 12, 2019 6:15am administer with food or milk Comment on above: Take 1 tablet by ghada th twice daily as needed. for pain. Take with food. NIFEdipine 30 mg osmotic 24 hr extended release oral tablet (5 sources) Dihydropyridine Calcium Channel Negro Start: 023 End: 024 NIFEdipine XL (Procardia XL) 30 MG 24 hr tablet Take 1 tablet (30 mg) by mouth daily. Do not crush, chew, or split. Do not start before December 02, 2022. 90 tablet 0 12/02/2022 12/02/2023 Active norethindrone acetate 5 mg oral tablet (20 sources) Start: 023 End: 024 take 2 tablets by mouth once daily norethindrone (AYGESTIN) 5 mg tablet Take 2 tablets by mouth once daily. 60 tablet 5 01/03/2024 07/01/2024 Active Start: 04-11-2023 End: 04-10-2024 take 1 tablet by mouth once daily norethindrone (AYGESTIN) 5 mg tablet Take 1 tablet by mouth once daily. 30 tablet 11 04/11/2023 Active Start: 07-21-2020 take 1 tablet by ghada once daily Norethindrone Acetate 5 MG Oral Tablet TAKE 1 TABLET DAILY. Quantity: 1 Refills: 0 Ordered: 21-Jul-2020 Charlene Rodriguez DO Start : 21-Jul-2020 Active Comment on above: Take 1 tablet by ghada once daily. Take 2 tablets by mo [facility] once daily. pramoxine hydrochloride 10 mg/ml rectal foam (2 sources) Start: 2 End: 2 take 15 g rectal route twice daily ProctoFoam 1% Foam apply, Rectal, BID for 7 day(s), 15 gm, Refill(s) 0 Start Date: 07/14/22 Stop Date: 07/21/22 Status: Ordered Multivitamins with Vitamin B Complex, Vitamin C, Minerals and L-Methylfolate oral capsule (9 sources) Start: 2 Multivitamins with Vitamin B Complex, Vitamin C, Minerals and L-Methylfolate oral capsule 1 cap(s), Oral, Daily, 30 cap(s), Refill(s) 0 Start Date: 07/14/22 Status: Ordered Quantity: 30.0 Unit: cap(s) Repeat number: 1 Start: 07-14-2022 Multi vitamins with Vitamin B Complex, Vitamin C, Minerals and L-Methylfolate oral capsule 1 cap(s), Oral, Daily, 30 cap(s), Refill(s) 0 Start Date: 07/14/22 Status: Ordered Vit-Fe Fumarate-FA ( Vitamin) 27-0.8 MG tablet (3 sources) Vit-Fe Fumarate-FA ( Vitamin) 27-0.8 MG tablet Take by mouth. 0 Active SUMAtriptan 100 mg oral tablet (10 sources) Serotonin-1b and Serotonin-1d Receptor Agonist Start: 1 take 1 mg by mouth once Imitrex 100 mg Tab mg tab(s), Oral, Once, Refills(s) 0 Start Date: 02/02/21 Status: Ordered Repeat number: 1 Surgical Lubricant Jelly gel (12 sources) Start: 3 Surgical Lubricant Jelly gel For MRI Female [...] (3 sources) Central alpha-2 Adrenergic Agonist Start: 1 take 1 mg by mouth every eight hours tiZANidine 4 mg Tab mg tab(s), Oral, q8hr, Refills(s) 0 Start Date: 02/02/21 Status: Ordered traMADol hydrochloride 50 mg oral tablet (10 sources) Opioid Agonist Start: 3 take 1 tablet by mouth every four [...] Charlene Rodriguez DO Start : 18-Aug-2020 Active Start: 03-12-2019 End: 08-04-2019 take 1 tablet by mouth every four hours as needed for pain Tramadol 50 mg tablet Discontinued 50 MG PO Q4H as needed for pain 30 5 March 12, 2019 12:00am August 04, 2019 8:19am Comment on above: Take 1 tablet by ghada th every 4 hours as needed for pain. Vitamin D2 2000 intl units oral capsule (9 sources) Start: 02-02-2021 take 1 capsule by mouth once daily Vitamin D2 2000 intl units oral capsule Oral, Daily, Refills(s) 0 Start Date: 02/02/21 Status: Ordered Repeat number: 1 Start: 02-02-2021 Vitamin D2 200 0 intl units oral capsule Oral, Daily, Refills(s) 0 Start Date: 02/02/21 Status: Ordered Completed/Discontinued Medications Medication Drug Class(es) Dates Sig (Normalized) Sig (Original) acetaminophen 325 mg oral tablet (4 sources) Start: 11-30-2022 End: 12-02-2022 take 1 tablet by mouth every six hours as needed for pain 650 mg, Oral, Every 6 hours PRN, mild pain (1-3), Starting on Constance 11/30/22 at 0422 Give in addition to any other pain medication ordered at same time for any pain indication. &n bsp;Maximum dose of acetaminophen is 4000 mg from all sources in 24 hours. Alternate ibuprofen and acetaminophen every 3 hours. Start: 11-28-2022 End: 11-28-2022 acetaminophen (Tylenol) tabl et 1,000 mg acetaminophen 300 mg / codeine phosphate 30 mg oral tablet (4 sources) Opioid Agonist Start: 01-19-2025 End: 01-24-2025 take 1 tablet by mouth every six hours for pain acetaminophen-codeine (Tylenol w/ Codeine #3) 300-30 MG tablet Indications: Pain in female genitalia on intercourse , Endometriosis Take 1 tablet by mouth every 6 (six) hours if needed for severe pain for up to 5 days 20 tablet 01/19/2025 01/24/2025 Start: 07-22-2024 End: 07-27-2024 take 1 tablet by mouth every six hours for pain acetaminophen-codeine (Tylenol w/ Codein e #3) 300-30 MG tablet Indications: Dysmenorrhea, unspecified Take 1 tablet by mouth every 6 (six) hours if needed for severe pain for up to 5 days 20 tablet 07/22/2024 07/27/2024 Active atropine sulfate 0.0194 mg / hyoscyamine sulfate 0.1037 mg / PHENobarbital 16.2 mg / scopolamine hydrobromide 0.0065 mg oral tablet (1 source) Anticholinergic, Cholinergic Muscarinic Antagonist Start: 05-27-2020 take 1 tablet by mouth every eight hours 16.2 MG 1 tablet Orally Three times a day for 30 day(s) May, Not-Taking benzethonium chloride 2 mg/ml / benzocaine 200 mg/ml topical spray (2 sources) Standardized Chemical Allergen Start: 11-30-2022 End: 12-02-2022 Topical, As needed, pain, , Starting on Sun11/30/22 at 0608, Apply to perineal area. Patient is capable and may self administer at bedside. betamethasone 3 mg/ml / betamethasone acetate 3 mg/ml injectable suspension (2 sources) Corticosteroid Start: 11-28-2022 End: 11-28-2022 betamethasone acetate-betametha sone sodium phosphate (Celestone) injection 12 mg calcium chloride 0.0014 meq/ml / potassium chloride 0.004 meq/ml / sodium chloride 0.103 meq/ml / sodium lactate 0.028 meq/ml injectable solution (2 sources) Start: 11-28-2022 End: 11-30-2022 take 125 mL intravenously every hour 125 mL/hr, IntraVENous, Continuous, Starting on Sun11/28/22 at 0100, Pre-Delivery chlordiazePOXIDE hydrochloride 5 mg / clidinium bromide 2.5 mg oral capsule (1 source) Anticholinergic, Benzodiazepine Start: 06-02-2020 take 1 capsule by mouth every eight hours chlordiazePOXIDE- Clidinium 5-2.5 MG 1 capsule before meals Orally Three times a day for 30 day(s) May, Not-Taking chlorhexidine gluconate 20 mg/ml medicated pad (2 sources) Start: 11-28-2022 End: 11-30-2022 apply 1 dose topically every six hours Topical, Every 6 hours, First dose on Sun11/28/22 at 0100, Pre-Delivery Apply to the affected area. Clean entire abdomen. desogestrel 0.15 mg / ethinyl estradiol 0.03 mg oral tablet (11 sources) Progestin, Estrogen Start: 07-22-2024 End: 10-20-2025 desogestrel-ethin yl estradiol (Apri) 0.15-30 MG-MCG tablet Indications: Dysmenorrhea, unspecified Take 1 tablet by mouth Daily 21 tablet 12 10/20/2024 01/19/2025 Discontinued (Other) diphenhydrAMINE (BENADryl) injection 25 mg (2 sources) Start: 11-30-2022 End: 12-02-2022 take 25 mg intravenously every six hours as needed diphenhydrAMINE (BENADryl) injection 25 mg Norethindrone-E.Est radiol-Iron (1 source) Estrogen Start: 10-17-2017 End: 03-12-2019 take 1 tablet by mouth once daily Norethindrone-E.E stradiol-Iron (Lo Loestrin Fe) 1 mg-10 mcg (24)/10 mcg (2) tablet Discontinued 1 TAB PO Daily October 17, 2017 1:00am March 12, 2019 6:15am famotidine 20 mg oral tablet (2 sources) Histamine-2 Receptor Antagonist Start: 11-30-2022 End: 12-02-2022 take 20 mg by mouth twice daily as needed for gastroesophageal reflux disease 20 mg, Oral, 2 times daily PRN, heartburn, Starting on Constance 11/30/22 at 0608, Renal dose per pharmacy for peptic ulcer prophylaxis. ferrous sulfate 325 mg oral tablet (2 sources) Start: 11-30-2022 End: 12-02-2022 take 325 mg by mouth twice daily at mealtime 325 mg, Oral, 2 times daily with meals, First dose on Constance 11/30/22 at 0800, Start if Hgb less than 10. FLUoxetine 20 mg oral capsule (17 sources) Serotonin Reuptake Inhibitor Start: 06-02-2021 take 1 capsule by mouth once daily FLUoxetine HCl - 20 MG Oral Capsule TAKE 1 CAPSULE Daily Quantity: 30 Refills: 11 Ordered: 02-Jun-2021 Charlene Rodriguez DO Start : 02-Jun-2021 Active Start: 11-02-2018 End: 08-04-2019 take 1 capsule by mouth once daily Fluoxetine (Prozac) 20 mg capsule Discontinued 20 MG PO Daily November 02, 2018 1:00am August 04, 2019 8:19am take 1 capsule by [facility] once daily FLUoxetine (PROZAC) 10 mg capsule Take 10 mg by mouth once daily. 0 Active Comment on above: Take 10 mg by mouth once daily. labetalol hydrochloride 5 mg/ml injectable solution (4 sources) beta-Adrenergic Negro Start: 11-28-2022 End: 11-28-2022 labetalol (Normodyne,Trandate) injection 20 mg Start: 11-28-2022 End: 11-28-2022 labetalol (Normodyne,Trandat e) injection 20 mg Start: 11-28-2022 End: 11-28-2022 labetalol (Normodyne,Trandat e) 5 MG/ML injection - Pyxis ADS Override Pull lanolin 1000 mg/ml topical cream (2 sources) Start: 11-30-2022 End: 12-02-2022 Topical, As needed, dry skin , nipple discomfort, Starting on Sun11/30/22 at 0608, Apply to affected area. 500 ml magnesium sulfate 40 mg/ml injection (4 sources) Start: 11-28-2022 End: 12-01-2022 magnesium sulfate 20 GM/500M L infusion Start: 11-28-2022 End: 11-28-2022 magnesium sulfate 20 GM/500M L infusion - Pyxis ADS Override Pull metoclopramide 10 mg oral tablet (2 sources) Dopamine-2 Receptor Antagonist Start: 08-04-2019 take 1 tablet by mouth every eight hours Reglan 10 MG 1 tablet before meals Orally tid for 30 day(s) March, Not-Taking miSOPROStol 0.2 mg oral tablet (2 sources) Prostaglandin E1 Analog Start: 11-30-2022 End: 11-30-2022 miSOPROStol (Cytotec) tablet 1,000 mcg Start: 11-30-2022 End: 11-30-2022 miSOPROStol (Cytotec) tablet 1,000 mcg miSOPROStol (Cytotec) split tablet 25 mcg (2 sources) Start: 11-28-2022 End: 11-29-2022 take 1 tablet vaginal route every four hours miSOPROStol (Cytotec) split tablet 25 mcg 1 ml morphine sulfate 4 mg/ml injection (4 sources) Opioid Agonist Start: 11-28-2022 End: 11-29-2022 morphine sulfate (PF) injection 4 mg nitrofurantoin, macrocrystals 25 mg / nitrofurantoin, monohydrate 75 mg oral capsule (6 sources) Nitrofuran Antibacterial Start: 04-01-2021 Nitrofurantoin Monohyd Macro 100 MG Oral Capsule TAKE 1 CAPSULE Other Please take one capsule after sexual intercourse to prevent UTI Quantity: 30 Refills: 11 Ordered: 01-Apr-2021 Nicholas Chau MD Start : 01-Apr-2021 Active 2 ml ondansetron 2 mg/ml injection (12 sources) Serotonin-3 Receptor Antagonist Start: 11-29-2022 End: 11-30-2022 take 4 mg intravenously every six hours as needed for nausea and vomiting ondansetron (Zofran) injection 4 mg Start: 07-14-2022 take 1 tablet by ghada th every six hours as needed for nausea Zofran 4 mg Tab 1 tab(s), Oral, q6hr, PRN Nausea, # 8, Refills(s) 0 Start Date: 07/14/22 Status: Ordered Quantity: 8.0 Unit: Repeat number: 1 Start: 06-08-2020 take 1 tablet by ghada th three times daily Zofran 4 MG 1 tablet Orally THREE TIMES A DAY for 30 day(s) May, Not-Taking ondansetron ODT (Zofran-ODT) disintegrating tablet 4 mg (2 sources) Start: 11-30-2022 End: 12-02-2022 take 1 tablet by mouth every eight hours as needed for nausea and vomiting ondansetron ODT (Zofran-ODT) disintegrating tablet 4 mg oxytocin (Pitocin) 30 units in 500 mL infusion (8 sources) Start: 11-30-2022 End: 12-02-2022 125 paulo-units/min (125 mL/hr), IntraVENous, Continuous, Starting on Constance 11/30/22 at 0430 For Immediate Post Use Only. Give after delivery of placenta and initial 30 unit bolus. Bag 2 of 2: 125cc/hr (125 mu/min) for an additional infusion of 500cc (30 units). Start: 11-30-2022 End: 12-02-2022 30 Units, IntraVENous, at 30 mL/hr, Continuous, Starting on Constance 11/30/22 at 0430 Post- use ONLY after delivery of baby/ excessive bleeding/ uterine atony. Bag 1 of 2: Bolus for bag to infuse at 999 ml/hour for 15 minutes (15 units in 250cc). After initial bolus then decrease rate to 250cc/hr for 1 hour. Then discontinue. Start: 11-29-2022 End: 11-30-2022 oxytocin (Pitocin) 30 units in 500 mL infusion Start: 11-29-2022 End: 11-29-2022 oxytocin (Pitocin) 30 units in 500 mL infusion phenazopyridine hydrochloride 200 mg oral tablet (10 sources) Start: 03-04-2021 take 1 tablet by mouth three times daily Pyridium 200 mg Tab 200 mg = 1 tab(s), Oral, TID, Take one tab by mouth three times a day for three days, # 9 tab(s), Refills(s) 0, [facility] 157, cm, 03/04/21 7:22:00 EDT, Height/Length Dosing, 52, kg, 03/04/21 7:22:00 EDT, Weight Dosing Start Date: 03/04/21 Status: Ordered Quantity: 9.0 Unit: tab(s) Repeat number: 1 predniSONE 10 mg oral tablet (3 sources) Start: 09-10-2023 End: 01-10-2024 take 2 tablets by mouth twice daily, [...] tablet 0 09/10/2023 01/10/2024 Discontinued (Therapy completed) Start: 03-12-2019 End: 08-04-2019 take 3 tablets by mouth once daily at mealtime Prednisone 20 mg tablet Discontinued 60 MG PO Daily 9 March 12, 2019 12:00am August 04, 2019 8:18am administer with food or milk 5 ml sodium chloride 9 mg/ml injection (2 sources) Start: 11-28-2022 End: 11-30-2022 10 mL, IntraVENous, Every 12 hours scheduled (2 times per day), First dose on Sun11/28/22 at 0900, Pre-Delivery witch yesi 500 mg/ml medicated pad (2 sources) Start: 11-30-2022 End: 12-02-2022 Topical, As needed, hemorrho ids, For perineal pain or discomfort, Starting on Constance 11/30/22 at 0608, Apply to perineal area. Patient is capable and may self administer at bedside. Problems Active Problems Problem Classification Problem Date Documented Da te Episodic/Chronic Allergic reactions (1 source) Allergic reaction; Translations: [Allergy, unspecified, initial encounter] 11-07-2023 Episodic Comment on above: Problem List clean-u p per request of Phys. EHR [facility] Anxiety disorders (20 sources) Anxiety; Translations: [Anxiety state, unspecified] Onset: 10-08-2020 10-08-2020 Chronic Comment on above: Problem List clean-u p per request of Phys. EHR Cmte Cardiac dysrhythmias (16 sources) Paroxysmal tachycardia; Translations: [Paroxysmal tachycardia, unspecified] Onset: 03-29-2023 03-29-2023 Chronic Complications of surgical procedures or medical care (1 source) Postoperative retention of urine; Translations: [Other postprocedural complications and disorders of genitourinary system] 11-07-2023 Episodic Comment on above: Problem List clean-u p per request of Phys. EHR Cmte Endometriosis (20 sources) Endometriosis (clinical); Translations: [Endometriosis, site unspecified] Onset: 03-29-2023 Chronic Essential hypertension (20 sources) Hypertensive disorder; Translations: [Essential (primary) hypertension] Onset: 03-29-2023 10-08-2020 Chronic Genitourinary symptoms and ill-defined conditions (20 sources) Microscopic hematuria; Translations: [Nocturia] 02-02-2021 Episodic Comment on above: Problem List clean-u p per request of Phys. EHR Cmte Headache; including migraine (20 sources) Migraine; Translations: [Migraine, unspecified, not intractable, without status migrainosus] Onset: 10-08-2020 08-07-2018 Chronic Comment on above: Problem List clean-u p per request of Phys. EHR Cmte Headache; including migraine (12 sources) Headache; Translations: [Headache, unspecified] Onset: 01-31-2023 02-14-2021 Episodic Hemorrhoids (1 source) Hemorrhoids; Translations: [Unspecified hemorrhoids] Onset: 07-14-2022 Episodic Hypertension complicating ; childbirth and the puerperium (12 sources) Severe pre-eclampsia complicating childbirth; Translations: [Severe pre-eclampsia, third trimester] Onset: 11-28-2022 Episodic Joint disorders and dislocations; trauma-related (14 sources) Disorder of left patellofemoral joint; Translations: [Patellofemoral disorders, left knee] Onset: 03-29-2023 03-29-2023 Chronic Joint disorders and dislocations; trauma-related (14 sources) Disorder of right patellofemoral joint; Translations: [Patellofemoral disorders, right knee] Onset: 03-29-2023 03-29-2023 Chronic Menstrual disorders (20 sources) Dysmenorrhea; Translations: [Dysmenorrhea, unspecified] Onset: 10-08-2020 04-23-2019 Chronic Nausea and vomiting (1 source) Nausea and vomiting; Translations: [Nausea with vomiting, unspecified] Episodic Nonspecific chest pain (2 sources) Chest pain; Translations: [Chest pain, unspecified] 11-07-2023 Episodic Comment on above: Problem List clean-u p per request of Phys. EHR Cmte Nutritional deficiencies (14 sources) Vitamin D deficiency; Translations: [Vitamin D deficiency, unspecified] Onset: 03-29-2023 03-29-2023 Chronic Other acquired deformities (14 sources) Scoliosis deformity of spine; Translations: [Scoliosis, unspecified] Onset: 03-29-2023 03-29-2023 Chronic Other bone disease and musculoskeletal deformities (10 sources) Disorder of bone 08-07-2018 Episodic Comment [...] other site] Episodic Other female genital disorders (10 sources) Abnormal uterine bleeding 04-23-2019 Chronic Other female genital disorders (1 source) Dyspareunia; Translations: [Other specified dyspareunia] Chronic Other female genital disorders (16 sources) Pain in female genitalia on intercourse; Translations: [Unspecified dyspareunia] Onset: 03-29-2023 03-29-2023 Chronic Other female genital disorders (1 source) Unspecified dyspareunia; Translations: [Unspecified dyspareunia] Onset: 02-02-2025 Chronic Other female genital disorders (2 sources) Pelvic floor dysfunction; Translations: [Other specified conditions associated with female genital organs and menstrual cycle] Episodic Other gastrointestinal disorders (18 sources) Constipation; Translations: [Constipation, unspecified] Onset: 10-08-2020 10-08-2020 Episodic Comment on above: Problem List clean-u p per request of Phys. EHR Cmte Other gastrointestinal disorders (1 source) Constipation, unspecified; Translations: [Constipation, unspecified] Onset: 07-14-2022 Episodic Other hereditary and degenerative nervous system conditions (16 sources) Finding of scapular structure; Translations: [Other specified extrapyramidal and movement disorders] Onset: 03-29-2023 03-29-2023 Chronic Other nervous system disorders (9 sources) Chronic pain; Translations: [Other chronic pain] Onset: 03-29-2023 03-29-2023 Chronic Other nervous system disorders (1 source) Other chronic pain; Translations: [Chronic pelvic pain in female] Onset: 08-24-2023 Chronic Other nervous system disorders (1 source) Paresthesia of left upper limb; Translations: [Paresthesia of skin] 11-07-2023 Episodic Comment on above: Problem List clean-u p per request of Phys. EHR Cmte Other nervous system disorders (1 source) Tremor; Translations: [Tremor, unspecified] 11-07-2023 Episodic Comment on above: Problem List clean-u p per request of Phys. EHR Cmte Other nutritional; endocrine; and metabolic disorders (12 sources) Body mass index 30+ - obesity; Translations: [Obesity, unspecified] Onset: 02-19-2024 02-19-2024 Chronic Other screening for suspected conditions (not mental disorders or infectious disease) (2 sources) Elevated liver enzymes level; Translations: [Other specified abnormal findings of blood chemistry] Onset: 04-18-2022 Resolved: 04-18-2022 Episodic Other upper respiratory disease (14 sources) Allergic rhinitis due to pollen; Translations: [Allergic rhinitis due to pollen] Onset: 03-29-2023 03-29-2023 Chronic Residual codes; unclassified (2 sources) Contraception ; Translations: [Other specified health status] 01-10-2024 Episodic Spondylosis; intervertebral disc disorders; other back problems (14 sources) 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; Translations: [Other cervical disc displacement, unspecified cervical region] Onset: 03-29-2023 03-29-2023 Chronic Urinary tract infections (20 sources) Recurrent urinary tract infection; Translations: [Urinary tract infection, site not specified] Onset: 07-14-2022 03-10-2021 Episodic Past or Other Problems Problem Classification Problem Date Documented Da te Episodic/Chronic Abdominal pain (20 sources) Epigastric pain; Translations: [Epigastric pain] Onset: 07-14-2022 Episodic Acquired foot deformities (14 sources) Acquired equinus deformity of foot; Translations: [Other acquired deformities of unspecified foot] Onset: 03-29-2023 03-29-2023 Episodic Cardiac dysrhythmias (12 sources) Tachycardia; Translations: [Tachycardia, unspecified] Onset: 02-19-2024 02-19-2024 Episodic Nutritional deficiencies (14 sources) Cobalamin deficiency; Translations: [Deficiency of other specified B group vitamins] Onset: 03-29-2023 03-29-2023 Episodic Other connective tissue disease (14 sources) Posterior calcaneal exostosis; Translations: [Calcaneal spur, unspecified foot] Onset: 03-29-2023 03-29-2023 Episodic Other disorders of stomach and duodenum (15 sources) Gastroparesis syndrome; Translations: [Gastroparesis] Onset: 03-29-2023 03-29-2023 Episodic Other female genital disorders (1 source) Other specified conditions associated with female genital organs and menstrual cycle; Translations: [High-tone pelvic floor dysfunction] Onset: 08-24-2023 Episodic Other gastrointestinal disorders (14 sources) Swallowing painful; Translations: [Dysphagia, unspecified] Onset: 03-29-2023 03-29-2023 Episodic Other non-traumatic joint disorders (7 sources) Chronic pain of right upper limb; Translations: [Pain in right shoulder] Onset: 03-29-2023 12-30-2024 Episodic Other nutritional; endocrine; and metabolic disorders (16 sources) Loss of appetite; Translations: [Anorexia] Onset: 05-27-2020 10-08-2020 Episodic Syncope (15 sources) Vasovagal syncope; Translations: [Syncope and collapse] Onset: 12-08-2014 12-08-2014 Episodic Unclassified (9 sources) Onset: 07-14-2022 Resolved: 03-26-2023 07-14-2022 Results Test Name Value Interpretation Reference Range Facility CHEMISTRYOrdered By: SYSTEM SYSTEM on 03-13-2025 Progesterone Lvl 31.35 ng/mL Invalid Interpretation Code [facility] Comment on above: Result Comment: 'F N ON FOLLICULAR = 0.10 - 0.60' 'LUTEAL = 3.00 - 17.5' 'MIDLUTEAL = 3.30 - 18.6' 'POST-MENOPAUSE = 0.10 - 0.40' '-FIRST TRIMESTER = 8.30 - 66.5' 'SECOND TRIMESTER = 18.9 - 66.1' 'THIRD TRIMESTER = 35.8 - 312.4' 'MALES = 0.14 - 2.06' Progesteroneon 03-13-2025 Progesterone Lvl 31.35 ng/mL Invalid Interpretation Code [facility] Comment on above: Result Comment: 'F N ON FOLLICULAR = 0.10 - 0.60' 'LUTEAL = 3.00 - 17.5' 'MIDLUTEAL = 3.30 - 18.6' 'POST-MENOPAUSE = 0.10 - 0.40' '-FIRST TRIMESTER = 8.30 - 66.5' 'SECOND TRIMESTER = 18.9 - 66.1' 'THIRD TRIMESTER = 35.8 - 312.4' 'MALES = 0.14 - 2.06' Performed By: #### 2 [id number] #### [facility] [address] [place] [address] Progesteroneon 02-02-2025 Progesterone 0.2 ng/mL Normal . [facility] Comment on above: Result Comment: Foll icular phase 0.1 - 0.9 Luteal phase 1.8 - 23.9 Ovulation phase 0.1 - 12.0 First trimester 11.0 - 44.3 Second trimester 25.4 - 83.3 Third trimester 58.7 - 214.0 Postmenopausal 0.0 - 0.1 Performed at: - [facility] [address] [id number] Outgoing Inspector: Cm Sandoval PhD, Phone: [phone] PERFORMED BY: [facility] [place] [address] PATHOLOGIST PROFESSOR OF RHETORIC ARNULFO THOMAS M.D. Performed By: #### P CJ #### [facility] , US Transvaginal Non-OBon US Transvaginal Non-OB Exam Date/Time: 01/22/2025 16:22 EST Reason for Exam: N94.6 Report PLEASE SEE US Pelvis Non-OB Complete REPORT DATED: 01/22/2025. Ordering Provider: Nathan POP FINAL REPORT Dictated: 01/27/2025 10:11 am Bruno Foy MD Signed (Electronic Signature): 01/27/2025 10:11 am Signed by: Bruno Foy MD Transcribed by: ELOISA Technologist: GIO Arroyo [facility] US Pelvis Non-OB Completeon 01-22-2025 US Pelvis Non-OB Complete Exam Date/Time: 01/22/2025 16:24 EST Reason for Exam: N94.6 Report IMPRESSION: Negative pelvic ultrasound. CLINICAL HISTORY: N94.6 COMPARISONS: None available. TECHNICAL FACTORS: Transabdominal and transvaginal sonography with transvaginal imaging was obtained to better assess pelvic anatomy. FINDINGS: Uterus: Normal in size, shape, and echogenicity. Endometrium: Normal in appearance. Right ovary: Normal in size, shape, and echogenicity. Color flow and Doppler without anomaly. Left ovary: Normal in size, shape, and echogenicity. Color flow and Doppler without anomaly. Free fluid: None Adnexal masses: None The uterus measurements and an estimated volume are: Uterus Length: 7.7 cm Uterus Width: 3.6 cm Uterus Height: 2.4 cm Uterus Volume: 35.4 cm3 Endometrium Thickness: 0.8 cm The right ovary measurements and an estimated volume are: Right Ovary Length: 3.2 cm Right Ovary Width: 1.5 cm Right Ovary Height: 2.1 cm Right Ovary Volume: 5.2 cm3 The left ovary measurements and an estimated volume are: Left Ovary Length: 2.7 cm Left Ovary Width: 2.1 cm Left Ovary Height: 1.5 cm Report Left Ovary Volume: 4.5 cm3 Ordering Provider: Nathan POP FINAL REPORT Dictated: 01/22/2025 5:50 pm Ramsey Gonzalez MD Signed (Electronic Signature): 01/22/2025 5:50 pm Signed by: Ramsey Gonzalez MD Transcribed by: ELOISA Technologist: GIO Arroyo [facility] IGP,APTIMA HPV,AGE GDLNon AGE GDLN ACOG TESTING Note . [facility] Comment on above: TESTS RESULT FLAG UN ITS REF RANGE LAB Clinician Provided Cytology Information Source.............Cervix;Endocervix No. of containers..01 ThinPrep Vial Age Algo ACOG Sarah... -24 12 FLAG LEGEND: L-Low Normal,H-High Normal,LL-Alert Low,HH-Alert High <-Panic Low,>-Panic High,A-Abnormal,AA-Critical Abnormal Performed at: 01 =[facility] [place] [address] Loren Oneal MD, IGP, RFX APTIMA HPV ASCU Note . [facility] Comment on above: TESTS RESULT FLAG UN ITS REF RANGE LAB DIAGNOSIS: 02 NEGATIVE FOR INTRAEPITHELIAL LESION OR MALIGNANCY. Specimen adequacy: 02 Satisfactory for evaluation. Endocervical and/or squamous metaplastic cells (endocervical component) are present. Performed by: 02 Pippa Calzada, Food Sampler ([facility]) . 02 Note: Note 02 The Pap smear is a screening test designed to aid in the detection of premalignant and malignant conditions of the uterine cervix. It is not a diagnostic procedure and should not be used as the sole means of detecting cervical cancer. Both false-positive and false-negative reports do occur. Test Methodology: Note 02 This liquid based ThinPrep(R) pap test was screened with the use of an image guided system. . 02 The HPV DNA reflex criteria were not met with this specimen result therefore, no HPV testing was performed. FLAG LEGEND: L-Low Normal,H-High Normal,LL-Alert Low,HH-Alert High <-Panic Low,>-Panic High,A-Abnormal,AA-Critical Abnormal Performed at: [address] [place] [address] Loren Oneal MD, Performed at: = - [facility], [place] [id number] Outgoing Inspector: Loren Oneal MD, Phone: [phone] Performed at: WB - [facility], [place], [place] [id number] Outgoing Inspector: Loren Oneal MD, Phone: [phone] BRUSH-SPATULA CERVIX ENDOCERVIX [facility] 04-29-2024 [facility] Telephone (WHQ) DRISS COPE ([id number]) 1995 F Date Time Provider Department 04/29/24 CHARLENE RODRIGUEZ [facility] During your visit today, we recorded the following information about you: Christa Garces 04/29/2024 8:24 AM Signed Received message from admin Anna Webb to cancel surgery and all appts as pt had services elsewhere Allergies As of Date: 04/29/2024 (No Known Allergies) Date Reviewed: 12/10/2023 Reviewed by: Alayna Faye E - Fully Assessed Prescriptions as of 04/29/2024 [...] Encounter Status:Closed by [facility] Telephone (Q) DRISS COPE ([id number]) 1995 F Date Time Provider Department 04/25/24 CHARLENE RODRIGUEZ [facility] During your visit today, we recorded the following information about you: Anna De Leon 04/25/2024 1:10 PM Signed 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 Please cancel surgery and all pre and post op appts. Allergies As of Date: 04/25/2024 (No Known Allergies) Date Reviewed: 12/10/2023 Reviewed by: Alayna Faye - Fully Assessed Reason for Visit: Surgery [...] Status:Closed by ANNA DE LEON on 04/25/24 [facility] Gladys 12-12-2023 [facility] Telephone (WHQ) DRISS COPE ([id number]) 1995 F Date Time Provider Department 12/12/23 [facility] During your visit today, we recorded the following information about you: Christa Garces 12/12/2023 2:16 PM Signed 1st attempt to contact the patient to schedule surgery. Allergies As of Date: 12/12/2023 (No Known Allergies) Date Reviewed: 12/10/2023 Reviewed by: Alayna Faye E - Fully Assessed Reason for Visit: Schedule [...] Encounter Status:Closed by CHRISTA GARCES on 12/12/23 [facility] CNOVon 12-10-2023 CNOV Office Visit (GYMGME ) DRISS COPE ([id number]) 1995 F Date Time Provider Department 12/10/23 10:30 AM CHARLENE RODRIGUEZ During your visit today, we recorded the following information about you: Pulse Blood pressure Weight 98/minute 124/84 68.9 kg Charlene Rodriguez DO 12/10/2023 3:14 PM Signed [facility] SECTION FOR MINIMALLY INVASIVE GYNECOLOGIC SURGERY OUTPATIENT VISIT DATE 12/10/2023 OUTPATIENT VISIT TYPE Follow-up visit PRIMARY CARE PHYSICIAN: Cruz Rodríguez [address] [place] [address] REFERRING PHYSICIAN: Self CHIEF COMPLAINT: No chief [...] MRI: no evidence of 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 Normal [facility] Cytology Cervical or vaginal smear or scraping [facility] 08-15-2023 [facility] 08-02-2023 [facility] Telephone ([facility]) DRISS COPE ([id number]) 1995 F Date Time Provider Department 08/02/23 CHARLENE RODRIGUEZ [facility] During your visit today, we recorded [...] are able too. Please advise. Thanks. Christa Suáerz RN 08/02/2023 12:02 PM Signed PA for orilissa completed via Cover MyMeds. Driss Cope (Morales: [id number]) - [id number] Orilissa 150MG tablets Status: Sent To Plan [...] Encounter Status:Closed by LESLEY LYNN on 08/02/23 [facility] CNOVon 07-16-2023 CNOV Office Visit (GYMGME ) DRISS COPE ([id number]) 1995 F Date Time Provider Department 07/16/23 11:30 AM CHARLENE RODRIGUEZ During your visit today, we recorded the following information about you: Blood pressure Last Period 136/90 07/08/23 Charlene Rodriguez DO 07/16/2023 12:41 PM Signed [facility] SECTION FOR MINIMALLY INVASIVE GYNECOLOGIC SURGERY OUTPATIENT VISIT DATE 07/16/2023 OUTPATIENT VISIT TYPE Follow-up visit PRIMARY CARE PHYSICIAN: Cruz Rodríguez [address] [place] [address] REFERRING PHYSICIAN: Cruz Rodríguez CHIEF COMPLAINT: No [...] additional bowel lesions identified 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 Normal [facility] MRI FEMALE PELVIS WO/W IVCON on 06-12-2023 MRI FEMALE PELVIS WO/W IVCON * * *Final Report* * * DATE OF EXAM: Jun 12 2023 2:47PM [facility] 0713 - MRI FEMALE PELVIS WO/W IVCON [...] additional findings. IMPRESSION: No deep infiltrating endometriosis. 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 She did not corn picker flexeril. Encourage to corn picker the flexeril as this will help with the cramping. Reviewed red flag bleeding symptoms that require trip to ER (soaking greater than one overnight pad per hour, chest pain, shortness of breath, fatigue, palpitations).. Advised keep appt. Gives verbal understanding. Appointments for Next 60 Days Date Time Provider Location Dept Phone 05/17/2023 1:00 PM CHARLENE RODRIGUEZ [facility] [phone] Christa Suárez RN Allergies As of Date: 05/11/2023 (No Known Allergies) Date Reviewed: 05/09/2023 Reviewed by: Srinivasa Downs APRN.RECORDING CLERK - Fully Assessed Reason for Visit: Vaginal [...] Encounter Status:Closed by CHRISTA WILLINGHAM on 05/11/23 Normal [facility] CNOVon 05-01-2023 CNOV Office Visit ([facility] ) DRISS COPE ([id number]) 1995 F Date Time Provider Department 05/01/23 10:30 AM [facility] During your visit today, we recorded the following information about you: Blood pressure Weight Height Last Period 148/64 64.9 kg 1.575 m 04/22/23 Srinivasa Downs APRN.RECORDING CLERK 05/09/2023 11:46 AM Signed Driss Cope is a 28 year old female who presents for problem visit for pain HPI: Pain is week before period and week of period. Worse on her period for every day she's bleeding Urinary - No symptoms GI - Always constipated. 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 Normal [facility] CHEMISTRYOrdered By: SYSTEM SYSTEM on 01-31-2023 Albumin [...] 11. 1 mg/dL FT [facility] Chloride [Moles/Vol] 100 mmol/L Low 101 - 1 11 mmol/L [facility] Remisol CO2 [Moles/Vol] 24 mmol/L Normal 21 - 31 mmol/L FT Remisol Creatinine [Mass/Vol] 1.0 mg/dL Normal 0.5 - 1.3 mg/dL FT Remisol GFR/1.73 sq M.predicted among blacks MDRD (S/P/Bld) [Vol rate/Area] mL/min/1.73 m2 Normal >=59mL/min/1 .73 m2 FT Chem S GFR/1.73 sq M.predicted among non-blacks MDRD (S/P/Bld) [Vol rate/Area] mL/min/1.73 m2 Normal >=59mL/min/1 .73 m2 [facility] Chem S Globulin (S) [Mass/Vol] 3.6 g/dL Normal 1.4 - 4.0 gm/dL FT Remisol Glucose [Mass/Vol] 104 mg/dL Normal 55 - 199 mg/dL FT Remisol Potassium [Moles/Vol] 3.6 mmol/L Normal 3.5 - 5.3 mmol/L [facility] Protein [Mass/Vol] 7.9 g/dL High 6.0 - 7.8 gm/dL FT [facility] Sodium [Moles/Vol] 134 mmol/L Low 135 - 145 mmol/L FT [facility] Urea nitrogen [Mass/Vol] 10 mg/dL Normal 5 - 21 mg/dL FT [facility] Urea nitrogen/Creatinine [Mass ratio] 10 mg/mg Normal 10 - 20 FT [facility] HEMATOLOGYOrdered By: Rufus Jenkins on 01-31-2023 Anisocytosis Ql (Bld) Present (01/31/23 2:10 PM) Normal [facility] HemeManSS Erythrocyte distribution width (RBC) [Ratio] 15.8 % High 10.9 - 14.2 % FT HemeAutoSS Hematocrit (Bld) [Volume fraction] 31.7 % Low 34.0 - 46.0 % FT HemeAutoSS Hemoglobin (Bld) [Mass/Vol] 9.8 g/dL Low 12.0 - 16.0 gm/dL FT HemeAutoSS Hypochromia Auto Ql (Bld) Present (01/31/23 2:10 PM) Normal FT HemeManSS MCH (RBC) [Entitic mass] 22.8 pg Low 27.0 - 34.0 pg FT HemeAutoSS MCHC (RBC) [Mass/Vol] 30.9 g/dL Low 31.4 - 36.0 gm/dL FT HemeAutoSS MCV (RBC) [Entitic vol] 73.9 fL Low 80.0 - 100.0 fL FT HemeAutoSS Morphology Blair (Bld) [Interp] See Morphology (01/31/23 2:10 PM) Normal [facility] HemeManSS Platelet mean volume (Bld) [Entitic vol] 7.0 fL Normal 6.4 - 10.8 fL FT HemeAutoSS Platelets (Bld) [#/Vol] 471.0 E9/L Normal 150.0 - 500.0 E9/L FT HemeAutoSS RBC (Bld) [#/Vol] 4.3 E12/L Normal 4.3 - 5.9 E12/L FT HemeAutoSS WBC corrected for nucl RBC Auto (Bld) [#/Vol] 7.6 E9/L Normal 4.0 - 11.0 E9/L FT HemeAutoSS HEMATOLOGYOrdered By: SYSTEM SYSTEM on 01-31-2023 [...] 2.4 E9/L Normal 1.0 - 4.0 E9/L FT HemeAutoSS Monocytes/100 WBC (Bld) 9.1 % Normal 4.0 - 14.0 % [facility] HemeAutoSS Monocytes/Leukocytes Auto (Bld) [Pure # fraction] 0.7 E9/L Normal 0.2 - 1.0 E9/L [facility] HemeAutoSS Neutrophils/100 WBC (Bld) 57.4 % Normal 36.0 - 75.0 % [facility] HemeAutoSS Neutrophils/Leukocyte s Auto (Bld) [Pure # fraction] 4.3 E9/L Normal 2.0 - 7.5 E9/L [facility] HemeAutoSS SEROLOGYOrdered By: Eleonora Newton on 01-31-2023 HCG.beta subunit (U) [Moles/Vol] Negative Normal [facility] Man Sero URINALYSISOrdered By: Solomon flores on 01-31-2023 Bilirubin [...] PM) Normal Negative [facility] UA Auto SS [place].plasma/Lithiu m.RBC (Bld) [Mass ratio] 0-3 /HPF Normal [...] PM) Invalid Interpretation Code 1.005 - 1.030 [facility] UA Auto SS UA Spec Desc Clean Catch (01/31/23 1:57 PM) Normal [facility] UA Auto SS Urobilinogen Qn (U) [id number] {Aspen'U}/dL Normal 0.0 - 1.0 EU/dL [facility] UA Auto SS WBC Auto Ql (U) Negative (01/31/23 1:57 PM) Normal Negative [facility] UA Auto SS WBC LM.HPF (Urine sed) [#/Area] 0-5 /HPF Normal 0-5/HPF [facility] UA Auto SS BLOOD BANKOrdered By: Teena Quiroz on 12-30-2022 ABO/Rh Interp Positive Invalid Interpretation Code [facility] BB Subsection ABSC Gel Interp Negative (12/30/22 11:28 AM) Normal [facility] BB Subsection CHEMISTRYOrdered By: SYSTEM SYSTEM on 12-30-2022 Anion gap [Moles/Vol] 12 mmol/L Normal 6 - 16 mEq/L [facility] Remisol Calcium [Mass/Vol] 8.6 mg/dL Low 8.9 - 11. 1 mg/dL [facility] Chloride [Moles/Vol] 103 mmol/L Normal 101 - 1 11 mmol/L [facility] CO2 [Moles/Vol] 26 mmol/L Normal 21 - 31 mmol/L [facility] Creatinine [Mass/Vol] 0.9 mg/dL Normal 0.5 - 1.3 mg/dL [facility] GFR/1.73 sq M.predicted among blacks MDRD (S/P/Bld) [Vol rate/Area] mL/min/1.73 m2 Normal >=59mL/min/1 .73 m2 [facility] Chem S GFR/1.73 sq M.predicted among non-blacks MDRD (S/P/Bld) [Vol rate/Area] mL/min/1.73 m2 Normal >=59mL/min/1 .73 m2 [facility] Chem S Glucose [Mass/Vol] 105 mg/dL Normal 55 - 199 mg/dL [facility] Potassium [Moles/Vol] 3.8 mmol/L Normal 3.5 - 5.3 mmol/L [facility] Sodium [Moles/Vol] 137 mmol/L Normal 135 - 145 mmol/L [facility] Remisol Urea nitrogen [Mass/Vol] 17 mg/dL Normal 5 - 21 mg/dL [facility] Remisol Urea nitrogen/Creatinine [Mass ratio] 19 mg/mg Normal 10 - 20 [facility] Remisol COAGULATIONOrdered By: Courtney Tang on 12-30-2022 aPTT Coag (PPP) [Time] 31.5 s Normal 25.1 - 36.5 second(s) [facility] Auto Coag INR Coag (PPP) [Relative time] 1.0 {INR} Invalid Interpretation Code [facility] Auto Coag PT Coag (PPP) [Time] 11.7 s Normal 9.4 - 1 2.5 second(s) [facility] Auto Coag HEMATOLOGYOrdered By: SYSTEM SYSTEM on 12-30-2022 Basophils/100 [...] Normal 4.0 - 11.0 E9/L [facility] HemeAutoSS URINALYSISOrdered By: Courtney elizabeth on 12-30-2022 Bacteria [...] AM) Normal Negative [facility] UA Auto SS [place].plasma/Lithiu m.RBC (Bld) [Mass ratio] 4-20 /HPF Normal [...] Desc Clean Catch (12/30/22 8:53 AM) Normal [facility] UA Auto SS Urobilinogen Qn (U) [id number] {Aspen'U}/dL Normal 0.0 - 1.0 EU/dL [facility] UA Auto SS WBC Auto Ql (U) Negative (12/30/22 8:53 AM) Normal Negative [facility] UA Auto SS WBC LM.HPF (Urine sed) [#/Area] 0-5 /HPF Normal 0-5/HPF [facility] UA Auto SS Office Visiton 12-05-2022 Follow-up visit [id number] RanjanAislinn kothari 1995 F Date Provider Department Center 12/05/2022 [id number], [facility] WOM None Chart Close Cosign Required by: Opal Ross MD[MONGD] No family history on file Level of Service:14322 DE OFFICE/OUTPATIENT ESTABLISHED LOW MDM 20-29 MIN (GE,GC) Reason for Visit and Comments: Blood Pressure Check [299] Normal [facility] Progress Noteon 12-05-2022 Progress Note --- Attestation signed by Opal Ross MD at 12/05/2022 3:19 PM [facility]: This patient was seen in the Women's [...] weeks (around 01/02/2023) for Visit . Normal [facility] Progress Note Vital signs BP 127/87 Weight 149.2lb Pulse 106 Temp 96.7 Normal [facility] Progress Noteon 12-02-2022 Progress Note Late entry [...] to discharge. Will make patient aware. [facility] Progress Note VAGINAL DELIVERY POST DAY [...] DO Vanessa Zambrano DO 12/02/2022, 5:[address] [facility] 42on 12-01-2022 42 22.5mm flanges given to patient. Encouraged her to call for observation of pump session and smaller flanges. Martha in NICU to assist with personal pump. Normal [facility] CARECOORDon 12-01-2022 CARECOORD 27 year old admitted [...] Denies any concerns at this time. Normal [facility] Progress Noteon 12-01-2022 Progress Note NOTE - [...] if she so chooses. Provider's Name: DO TONIA Zambrano DO 12/01/2022, 5:32 AM Attestation Statement [...] with more than 50% of the total leoc-na-frfw time of the visit in counseling/coordination of care. , 9:[address] [facility] 42on 11-30-2022 42 Swabs given to patiyamil nt and educated how to use and to bring to infant [facility] 42 Breast pump use indicated for this pt. Due to: in [facility] breast pump, supplies kit, swabs and [...] patient to check with in [facility] for smaller flange sizes Normal [facility] Labor and Delivery Noteon Labor and Delivery Note Attestation with edits by Carol Bowden MD at 12/01/2022 8:22 AM Procedures or Surgery: I was present for all morales elements of the procedure or surgery as described in the resident note. Vaginal Delivery Note Department of Obstetrics and Gynecology Patient: Driss Cope : 1995 Date of delivery: 11/30/2022 Pre-operative Diagnosis: Driss Sidhu at 35w1d 1. <37 weeks 2. 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 Bowden; Dr. Kramer Information: Information for the patient's : Francie Cope [[id number]] Information for the patient's : Francie Cope [[id number]] Description: normal Meconium Noted: No Anesthesia: epidural [...] atraumatically followed by the rest of the . The was placed on the maternal abdomen [...] RUBELLAIGG Irina Kramer DO 11/30/2022, 4:[address] [facility] Progress Noteon 11-30-2022 Progress Note Chauhan catheter inser tank by Andi Bacon RN, catheter drained and emptied for 900cc. Catheter secured to leg. [facility] Progress Note Patient up to bathro om but remains unable to void. Bladder scan completed and reads >570. Sent secure message to Dr. Ruiz letting her know the above. Instructed to place chauhan catheter. [facility] Progress Note Secure message sent to Dr. Gamez stating patient is having difficulty voiding, patient's perineum is very swollen, and that patient was straight cathed for 950ml at noon. Received order for benadryl to help with swelling. [facility] Progress Note Nutrition rescreen completed. Chart reviewed. Patient to be monitored and followed by the diet machine operator slitter technician. CRISS Oshea [facility] Progress Note Patient unable to vo id, last straight cathed at 0400. Bladder scan obtained for >928 ml, fundus +2 and shifted to right. Patient straight cathed on attempt x2 by Andi Bacon RN for 950cc. Will continue to monitor. Normal [facility] CAREPLNon 11-29-2022 CAREPLN The patient will continue to make cervical change. Clotilde Mg RN Normal [facility] Laboratory - Hematology and Cell countsOrdered By: Lucrecia Cervantes on 11-29-2022 Platelets (Bld) [#/Vol] 386 10*3/uL 140 - 440 10*3/uL [facility] Platelets (Bld) [#/Vol]Order ed By: Lucrecia Cervantes on 11-29-2022 Interpretation and review of laboratory results Normal [facility] S. agalactiae DNA TENA+probe Ql (Unsp spec)on 11-29-2022 Group B Strep Screen Not detected Not Detected [facility] Interpretation and review of laboratory results Normal [facility] Methodology: real-ti me PCR [facility] ABO and Rh group Confirm Nom (Bld)on 11-28-2022 ABO group Nom (Bld) O [facility] D Ag Ql (RBC) Positive [facility] Blood type and Crossmatch pa chitra (Bld)on 11-28-2022 ABO group Nom (Bld) O [facility] Blood group antibody screen GEL Ql Negative [facility] D Ag Ql (RBC) Positive [facility] CBC panel Auto (Bld)Ordered By: Lauren Ayers on 11-28-2022 Erythrocyte distribution width (RBC) [Ratio] 13.3 % 11.5 - 14.5 % [facility] Hematocrit (Bld) [Volume fraction] 33.8 % Low 35.0 - 47.0 % [facility] Hemoglobin (Bld) [Mass/Vol] 11.2 g/dL Low 11.7 - 16.0 g/dL [facility] Interpretation and review of laboratory results Abnormal [facility] MCH (RBC) [Entitic mass] 28.0 pg 26.0 - 34.0 pg [facility] MCHC (RBC) [Mass/Vol] 33.1 % 32.0 - 36.0 % [facility] MCV (RBC) [Entitic vol] 84.4 fL 80.0 - 98.0 fL [facility] Platelet mean volume (Bld) [Entitic vol] 8.3 fL 7.4 - 12.4 fL [facility] Platelets (Bld) [#/Vol] 319 10*3/uL 140 - 440 10*3/uL [facility] RBC (Bld) [#/Vol] 4.00 10*6/uL 3.8 - 5.20 10*6/uL [facility] WBC (Bld) [#/Vol] 18.9 10*3/uL High 3.6 - 10.7 10*3/uL [facility] Comprehensive metabolic 1998 panelon 11-28-2022 Albumin [Mass/Vol] 3.9 g/dL 3.5 - 5.0 g/dL [facility] ALP [Catalytic activity/Vol] 201 U/L High 38 - 126 U/L [facility] ALT [Catalytic activity/Vol] 15 U/L 0 - 34 U/L [facility] Anion gap [Moles/Vol] 7 mmol/L 3 - 13 mmol/L [facility] AST [Catalytic activity/Vol] 28 U/L 15 - 46 U/L [facility] Bilirubin [Mass/Vol] 0.9 mg/dL 0.2 - 1 .3 mg/dL [facility] Calcium [Mass/Vol] 8.2 mg/dL Low 8.4 - 10. 4 mg/dL [facility] Chloride [Moles/Vol] 109 mmol/L High 98 - 10 7 mmol/L [facility] CO2 [Moles/Vol] 17 mmol/L Low 22 - 30 mmol/L [facility] Creatinine [Mass/Vol] 0.53 mg/dL 0.52 - 1.04 mg/dL [facility] GFR/1.73 sq M.predicted MDRD (S/P/Bld) [Vol rate/Area] - PINF [facility] Comment on above: Calculation based on the Chronic Kidney Disease Epidemiology Collaboration (CKD-EPI) equation refit without adjustment for race Glucose [Mass/Vol] 158 mg/dL High 70 - 100 mg/dL [facility] Interpretation and review of laboratory results Abnormal [facility] Potassium [Moles/Vol] 4.1 mmol/L 3.5 - 5.1 mmol/L [facility] Protein [Mass/Vol] 7.5 g/dL 6.3 - 8.2 g/dL [facility] Sodium [Moles/Vol] 133 mmol/L Low 135 - 145 mmol/L [facility] Urea nitrogen [Mass/Vol] 5 mg/dL Low 7 - 17 mg/dL [facility] Laboratory - Hematology and Cell countsOrdered By: Shruthi Fontana on 11-28-2022 Platelets (Bld) [#/Vol] 335 10*3/uL 140 - 440 10*3/uL [facility] Platelets (Bld) [#/Vol]Order ed By: Shruthi Fontana on 11-28-2022 Interpretation and review of laboratory results Normal [facility] CHEMISTRYOrdered By: [email or web address] SYSTEM on 11-27-2022 Free T4 index Calc [...] (11/27/22 3:14 PM) Invalid Interpretation Code <10 [facility] Man Sero Fibrinogen Coag (PPP) [Mass/Vol] 539 mg/dL High 200 - 393 mg/dL [facility] Auto Coag INR Coag (PPP) [Relative time] 0.9 {INR} Invalid Interpretation Code [facility] Auto Coag PT Coag (PPP) [Time] 10.1 s Normal 9.4 - 1 2.5 second(s) [facility] Auto Coag HEMATOLOGYOrdered By: Raquel Arteaga on 11-27-2022 Erythrocyte distribution width (RBC) [Ratio] 12.9 % Normal 10.9 - 14.2 % [facility] HemeAutoSS Hematocrit (Bld) [Volume fraction] 34.2 % [...] Platelet count estimate appears normal on slide.. URINALYSISOrdered By: Rufus Jenkins on 11-27-2022 Bilirubin [...] PM) Normal Negative [facility] UA Auto SS [place].plasma/Lithiu m.RBC (Bld) [Mass ratio] 4-20 /HPF Normal [...] [facility] UA Auto SS Urobilinogen Qn (U) 0.2612002 {Aspen'U}/dL Normal 0.0 - 1.0 EU/dL [facility] UA Auto SS WBC Auto Ql (U) Negative (11/27/22 1:55 PM) Normal Negative [facility] UA Auto SS WBC LM.HPF (Urine sed) [#/Area] 0-5 /HPF Normal 0-5/HPF [facility] UA Auto SS CHEMISTRYOrdered By: SYSTEM SYSTEM on 07-14-2022 Albumin [...] m2 [facility] S Globulin (S) [Mass/Vol] 3.3 g/dL [...] AM) Normal Negative [facility] UA Auto SS [place].plasma/Lithiu m.RBC (Bld) [Mass ratio] 0-3 /HPF Normal [...] [facility] UA Auto SS Urobilinogen Qn (U) 0.2103437 {Aspen'U}/dL Normal 0.0 - 1.0 EU/dL [facility] UA Auto SS WBC Auto Ql (U) Negative (07/14/22 5:00 AM) Normal Negative [facility] UA Auto SS WBC LM.HPF (Urine sed) [#/Area] 0-5 /HPF Normal 0-5/HPF [facility] UA Auto SS CHEMISTRYOrdered By: SYSTEM SYSTEM on 04-25-2022 Albumin [...] a) No falls within the last year BS-IEUEJ-Vnr man 320 Work Phone: Last menstrual period start date unsure TY-UDHGF-Mxs man 320 Work Phone: Tobacco use status [facility] b) No KP-VJUPJ-Hnd man 320 Work Phone: VESSEL SCRAPPER - Office Visiton 01-24 VESSEL SCRAPPER - Office Visit Diagnoses/Problems Assessed Endometriosis (617.9) (N80.9) Orders Start: Orilissa 200 MG Oral Tablet; take 1 tablet by mouth twice a day Provider Impressions 26 yo 1. endometriosis: discussed options continue norethindrone rx'd orilissa 200 mg bid rtc in 3 months Chief Complaint patient here to discuss pain related to endometriosis, declined precision farming specialist. CH UTILITY PERSON History of Present Rjriwch17 yo presents as a follow up for [...] again engaged x 1 year working at [employer] in [place] Review of Systems Constitutional: no fever, no [...] hours Vitals Vital Signs Recorded: 09Feb2022 11:41AM Tifrgkxj990 Gqjuaknyl98 Height5 ft 2 in Awcypq656 lb BMI Rcveqyzadw20.51 kg/m2 BSA Calculated1.61 Tobacco Useb) No Fall [...] Feb 09 2022 12:21PM EST (Author) Normal [facility] XR KNEE LEFT (MIN 4 VIEWS)on 09-29-2021 [...] Tashi Lopez MD 09/29/21 Final result Normal [facility] VESSEL SCRAPPER - Office Visiton 07-0 VESSEL SCRAPPER - Office Visit Diagnoses/Problems Assessed Anxiety (300.00) (F41.9) Orders Start: FLUoxetine HCl - 20 MG Oral Capsule; TAKE 1 CAPSULE Daily Provider Impressions 26 yo 1. endometriosis - discussed treatment options rx'd Prozac for mood rx'd norethindrone rtc in 3 months Chief Complaint patient to follow up on medication from last visit in march 2021, declined precision farming specialist. CH UTILITY PERSON History of Present Hoadmio64 yo with endometriosis was on norethindrone d/c'd [...] hours Vitals Vital Signs Recorded: 02Jun2021 01:19PM Qvmigkcz139 Dwzbopqsp18 Height5 ft 2 in Omylry697 lb BMI Hnovardwyy62.58 kg/m2 BSA Calculated1.53 Tobacco Useb) No Fall Screeninga) No falls within the last year [id number] Pain Scale0 Signatures Electronically signed by : Charlene Rodriguez DO; Jun 03 2021 10:55AM EST (Author) Normal [facility] Chlamydia sp identified Org specific cx Nom (Genital specimen)Ordered By: Jackelyn Dela Cruz on 05-16-2021 External Chlamydia Screen Negative Negative [facility] HBV surface Ag IA Qlon 05-16 External Hepatitis B Surface Ag Negative Negative, None Detected [facility] HIV 1+2 Ab and HIV1 p24 Ag I A.rapid Nom (S/P/Bld)on 05-16-2021 HIV-1/HIV-2 Ab Negative [facility] No Panel Informationon 05-16 External Gonorrhea Screen Negative Negative [facility] External Rubella IGG Quantitation Positive [facility] No Panel InformationOrdered By: Jackelyn Dela Cruz on 05-16-2021 [facility] Reagin Ab RPR Ql (S)on 05-16 External RPR Non-Reactive Borderline, Nonreactive, Weakly Reactive, Equivocal [facility] VESSEL SCRAPPER - Office Visiton 03-27 VESSEL SCRAPPER - Office Visit Diagnoses/Problems Assessed Endometriosis (617.9) (N80.9) Never smoker Orders Stop: Norethindrone Acetate 5 MG Oral Tablet Tobacco Use Screening; Status:Complete; Done: [id number] Provider Impressions 26 yo 1. endometriosis: rx'd norethindrone referral to pelvic floor PT rtc in 3-6 months if continues to have pain, will consider centrally acting neuromodulator Chief Complaint Patient presents today for f/u for endometriosis PAP per patient 2019 WNL Psych Assistant declined -CATYUTILITY PERSON LMP 04/11/21 History of Present Bhjffmy89 yo with endometriosis bleeding once per month, [...] Apr 20 2021 11:04AM EST (Author) Normal [facility] Tobacco Screening.on Fall risk assessment a) No falls within the last year UZ-JCTZI-Txn man 320 Work Phone: Last menstrual period start date 11Apr2021 FC-HLZAG-Juz man 320 Work Phone: Tobacco Screening. b) No MG-OBG YN-Ris man 320 Work Phone: Radiologyon 04-14-2021 US Kidney - bilateral Normal [facility]- [facility] [place] Work Phone: US RENAL BILATon 04-14-2021 US RENAL BILAT Patient Name: DRISS COPE STUDY: US RENAL BILAT; 04/14/2021 1:14 pm INDICATION: Recurrent UTI. COMPARISON: None. ACCESSION NUMBER(S): [id number] ORDERING CLINICIAN: NICHOLAS CHAU TECHNIQUE: Multiple images [...] UTI; ROSY = N; Verified Transmission to [facility] Ul[facility] Kid[facility] Bilateral; Status:Hold For - Scheduling; Requested for:[id number]; Perform:[facility]; Due:[id number]; Last Updated By:Isela Terrazas; 04/01/2021 9:16:17 AM;Ordered; [...] UTI; ROSY = N; Verified Transmission to [facility] [place] [address] Provider Impressions 26 year old female with history of endometriosis presents today via telehealth as a new patient for evaluation of recurrent UTIs. She reports getting UTIs at least once per month, noting occasional nocturia. Symptoms include burning, frequency, and back pain. She states that some UTIs are related to sexual intercourse but most are not. Patient reports she saw Dr. Booth at [facility] in [place], noting she was only treated with medications and urethral dilation for a supposed stricture. Denies gross hematuria. Patient is a non-smoker. Urine culture from [facility] on 03/04/21 was positive for E. coli, [...] NPV - recurrent UTI History of Present Jtmsvlo13 year old female with history of endometriosis presents today via telehealth as a new patient for evaluation of recurrent UTIs. She reports getting UTIs at least once per month, noting occasional nocturia. Symptoms include burning, frequency, and back pain. She states that some UTIs are related to sexual intercourse but most are not. Patient reports she saw Dr. Booth at [facility] in [place], noting she was only treated with medications [...] affect. Signature (more content not included)... Normal [facility] NM GASTRIC EMPTYING SOLIDon 11-05-2020 NM GASTRIC EMPTYING SOLID * * *Final Report* * * DATE OF EXAM: Nov 05 2020 12:26PM [facility] 0017 - NM GASTRIC EMPTYING SOLID / PROCEDURE REASON: Nausea [...] 4 HOURS IS CONSISTENT WITH MILD GASTROPARESIS. Industrial Hire Sales Assistant: DAVID Transcribe Date/Time: Nov 05 2020 1:09P Dictated by : BRUNO PEREA MD This examination was interpreted and the report reviewed and electronically signed by: BRUNO PEREA MD on Nov 05 2020 1:24PM EST [id number] Normal [facility] ANES POSTPROC EVALon 020 ANES POSTPROC EVAL HNO ID: [id number] Author: Austin Story Service: ? Author Type: [...] October 25, 2020 TIME: 2:52 PM CSN: [id number] [facility] ANES PRE-OPon 10-25-2020 ANES PRE-OP HNO ID: [id number] Author: Austin Story Service: ? Author Type: [...] October 25, 2020 TIME: 1:08 PM CSN: [id number] Normal [facility] SURGICAL PATHOLOGYon 020 SURGICAL PATHOLOGY Specimen originated from [facility] Specimen #: [id number] Submitting Physician: DAVID CRUZ MD FINAL DIAGNOSIS 1. Small bowel, biopsy (A) - Small bowel mucosa with no pathologic diagnostic abnormality; negative for celiac disease, granulomas and dysplasia. 2. Stomach, biopsy (B) - Gastric oxyntic-type mucosa with no pathologic diagnostic abnormality; see comment. /[facility] 10/26/2020 COMMENT 2. No microorganisms morphologically compatible [...] in one cassette. Gross examination performed at [facility], [address] [place] [address] 10/25/2020 7:59:40 PM Date of Report: 10/26/2020 Date of Procedure: 10/25/2020 Date of Receipt: 10/25/2020 Submitted by: DAVID CRUZ MD Location: [facility] Diagnostic interpretation performed at [place] [address]. CLIA Number: [id number] Normal [facility] Reference Lab Comment on above: Performed By: #### S #### See report for performing lab information. SURGICAL PATHOLOGY Specimen originated from [facility] Specimen #: [id number] Submitting Physician: DAVID CRUZ MD FINAL DIAGNOSIS 1. Small bowel, biopsy (A) - Small bowel mucosa with no pathologic diagnostic abnormality; negative for celiac disease, granulomas and dysplasia. 2. Stomach, biopsy (B) - Gastric oxyntic-type mucosa with no pathologic diagnostic abnormality; see comment. /ee 10/26/2020 COMMENT 2. No microorganisms morphologically compatible [...] in one cassette. Gross examination performed at [facility], [address] [place] [address] EJL 10/25/2020 7:59:40 PM Date of Report: 10/26/2020 Date of Procedure: 10/25/2020 Date of Receipt: 10/25/2020 Submitted by: DAVID CRUZ MD Location: [facility] Diagnostic interpretation performed at [place] [address]. CLIA Number: [id number] Normal [facility] ABO/RH GROUP TESTon 09-01-20 ABO TYPE O Normal [facility][note 2] Comment on above: Performed By: #### V ERAB #### [facility] [address] [place] [address] RH TYPE Positive Normal [facility] [place][note 2] Comment on above: Performed By: #### V ERAB #### [facility] [address] [place] [address] [facility] Surgical Pathology Dep artmenton 09-01-2020 [facility] Surgical Pathology Department Name DRISS COPE Pathologist: ASHLEY HURTADO MD Date of Procedure: 09/01/2020 Date Received: 09/01/2020 Date Reported 09/03/2020 Submitting Physician: CHARLENE RODRIGUEZ D.O. Location: [facility] External # FINAL DIAGNOSIS A. LEFT [...] D. Right pelvic sidewall peritoneum are 2 tcbg-gsa-eqs, irregular fragments of tissue measuring 1.3 x [...] in toto in one cassette. SB amisha/09/02/2020 [facility] Department of Pathology [address] [place] [address] Normal [facility] [place][note 2] Comment on above: Performed By: #### A #### [facility] Surgical Pathology Department [address] [place] [address] History and Physical - Surge ry > [...] T&S: O+, COVID-19: negative OB Hx: None. 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 PMHx: endometriosis Surg Hx: diagnostic laparoscopy, appendectomy (2016) Meds: Meloxicam, Donley-Linyah, Norethindrone acetate Social Hx: No tobacco, no [...] the note. I personally evaluated the patient [id number] Attending Provider Inpatient Certification StatementObservation patient/other outpatient [...] 01-Sep-2020 10:04 by Charlene Rodriguez () Normal [facility] [place][note 2] Homegoing Instructionson Homegoing Instructions Additional Instructions: Handouts Given: Topic 1Anesthesia Homegoing Instructions Topic 2Surgical Site Infection Handout Topic 3New Medication Education Topic 4Suggamedex handout Electronic Signatures: Aminata Gomez) (Signed 01-Sep-2020 16:07) Authored: Additional Instructions Last Updated: 01-Sep-2020 16:07 by Aminata Gomez (DIALLO) [facility] Patient Profile - Preop v2on 09-01-2020 Patient Profile - Preop v2 Profile: Initial Info: How to be Addressedalexis Spoken Language PreferredEnglish Are you currently using the Personal Electronic Health Record or [employer] Stated Reason for Admissionseeing if my endometriosis is back Primary Contact Name and Numberlogan [phone] Patient Belongingsclothing locker glasses with bf Medications Brought to Hospitalno General Health: Weight in kg55.6 kilogram(s) Weight in uay840.5 pound(s) Weight Methodactual (measured) Scale Typestanding Height [...] Arrangementshouse Lives Withparent(s) Resource/Environmental Concernsnone [place] Anticipated at Transitionnone Substance: Current or [...] Learning Preferencesverbal instruction Cultural Considerationsnone Developmental Considerationsnone Methodist Considerationsnone Other learner availableno [place] RiskPatient location auto qualifies him/her for HIGH RISK. Are there any cultural, spiritual, zoroastrian practices/values/needs that are important for us to [...] Surgery > 30 days 01-Sep-2020 03:42 Normal [facility] [place] 2] Preop Checkliston 09-01-2020 Preop Checklist Preop Checklist: Preop Checklist: Arrival [id number] Arrival Time12:30 Procedure Typelaparoscopic endometriosis excision NPO [id number] 00:00 ID Band Onyes Allergy Bandno known [...] 01-Sep-2020 12:35 by Sierra Kraft (RN) Normal [facility] [place][note 2] ANTIBODY IDENT.on 08-31-2020 ANTIBODY IDENT. SEE BELOW Normal [facility] [place][note 2] Comment on above: Result Comment: NO C LINICALLY SIGNIFICANT ANTIBODIES IDENTIFIED. Performed By: #### A BID #### [facility] [address] [place] [address] CBCon 08-30-2020 Erythrocyte distribution width (RBC) [Ratio] 12.1 % Normal 11.5 - 14.5 [facility] Comment on above: Performed By: #### C BC #### [address] [id number] Hematocrit (Bld) [Volume fraction] 39.6 % Normal 36.0 - 46.0 [facility] Comment on above: Performed By: #### C BC #### [address] [id number] Hemoglobin (Bld) [Mass/Vol] 12.6 g/dL Normal 12.0 - 16.0 [facility] Comment on above: Performed By: #### C BC #### [address] [id number] MCHC (RBC) [Mass/Vol] 31.8 g/dL Low 32.0 - 36.0 [facility] Comment on above: Performed By: #### C BC #### [address] [id number] MCV (RBC) [Entitic vol] 90 fL Normal 80 - 100 [facility] Comment on above: Performed By: #### C BC #### [address] [id number] Platelets (Bld) [#/Vol] 333 10*3/uL Normal 150 - 450 [facility] Comment on above: Performed By: #### C BC #### [address] [id number] RBC 4.42 x10E12/L Normal 4.00 - 5.20 [facility] Comment on above: Performed By: #### C BC #### [address] [id number] WBC (Bld) [#/Vol] 5.6 10*3/uL Normal 4.4 - 11.3 [facility] Comment on above: Performed By: #### C BC #### [address] [id number] CORONAVIRUS 2019, SCREEN ASY MPTOMATICon 08-30-2020 SARS-CoV-2 (COVID-19) RNA TENA+probe Ql (Unsp spec) Not detected Normal Not Detected [facility] Comment on above: Result Comment: This [...] patient management decisions. Fact sheet for providers: https://www.fda.gov/media/699791/download Fact sheet for patients: https://www.fda.gov/media/129664/download This test has received FDA Emergency Use Authorization (EUA) and has been verified by [facility] ([facility]). This test is only authorized for the duration of time that circumstances exist to justify the authorization of the emergency use of in vitro diagnostic tests for the detection of SARS-CoV-2 virus and/or diagnosis of COVID-19 infection under section 564(b)(1) of the Act, 21 U.S.C. 360bbb-3(b)(1), unless the authorization is terminated or revoked sooner. [facility] is certified under CLIA-88 as qualified to perform high complexity testing. Testing is performed in the [facility] laboratories located at [address] [place] [address]. Performed By: #### C OVSC #### [address] [place] [address] Lab Specimen Source Nasal, Nasopharyngeal Normal [facility] Comment on above: Performed By: #### C OVSC #### [place] [address] [address] [facility] [place] [address] TYPE + SCREENon 08-30-2020 ABO TYPE O Normal [facility] [place][note 2] Comment on above: Performed By: #### T +S #### [facility] [address] [place] [address] RH TYPE Positive Normal [facility] [place][note 2] Comment on above: Performed By: #### T +S #### [facility] [address] [place] [id number] ABO TYPE Canceled Normal [facility] Comment on above: Order Comment: TEST TYPE + SCREEN WAS CANCELLED, 08/30/2020 13:37 JOP. Performed By: #### T +S #### [address] [place] [address] RH TYPE Canceled Normal [facility] Comment on above: Order Comment: TEST TYPE + SCREEN WAS CANCELLED, 08/30/2020 13:37 JOP. Performed By: #### T +S #### [address] [facility] [address] HOSPon 07-29-2020 HOSP Patient:Flavio Cope MRN: Height:5' [...] for the following basenames: K,HCT Progress Notes ([facility] REJ AV4): Jaquelin Wesley Ma 10/19/2020 [...] 1 10 oz. Bottle of Magnesium Citrate (Lemon/[place]) ? A test for COVID 19 test [...] toast without seeds (not multigrain); pretzels; waffles, Malay toast and pancakes; white rice, noodles, pasta, macaroni, peeled cooked potatoes; Special K, Rice Krispies or [place] Flakes cereals; ripe bananas; melons (except watermelon [...] carbonated beverages such as chi aislinn or lemon-port graham soda; Gatorade? or other sports drinks (not [...] make sure you have a responsible adult team driver to take you home after procedure. Due to having sedation, you may not drive the rest of the day. ? If you need to reschedule, please call [phone] ?Date/Provider Dr Cruz Procedure:colonoscpy Facility:[facility] Prep ordered( if aware):miralax Knowledge of prep instructions:posted to Chain Diabetic:no Blood Thinners:no Pacemaker with defibrillator:no left message for patient to return call. Nurse triage please give below message. PLEASE READ PATIENT INSTRUCTIONS BELOW. THANK YOU. Normal [facility] PROGRESSon 07-29-2020 PROGRESS HNO ID: [id number] Author: Fito Stapleton (Rt) Service: Radiology Author Type: Claims Customer Service Representative Type: Progress Notes Filed: 07/29/2020 11:06 AM [...] RT Daya July 29, 2020 11:01 AM [facility] XR ABD 2V SUPINE W UPR/DECUB /CTLon [...] structures are normal. No other significant abnormality. Industrial Hire Sales Assistant: PSCB Transcribe Date/Time: Jul 29 2020 11:19A Dictated by : LALI ORNELAS MD This examination was interpreted and the report reviewed and electronically signed by: LALI ORNELAS MD on Jul 29 2020 11:19AM EST [id number] [facility] Vital Signs Date Time Vital Sign Value Performing Clinician Facility 01-19-2025 15:08-0500 Body mass index (BMI) [Ratio] 25.99 kg/m2 Cardoz Work Phone: [facility] 01-19-2025 15:08-0500 Body weight 64.47 kg Nathan Kiesha [facility] Work Phone: [facility] 01-19-2025 15:08-0500 Diastolic blood pressure 78 mm[Hg] Nathan Kiesha DO Work Phone: [facility] 01-19-2025 15:08-0500 Systolic blood pressure 122 mm[Hg] Nathan Kiesha DO Work Phone: [facility] 12-30-2024 15:53-0500 Body height 157.5 cm Nay Beltran DO Work Phone: [facility] 12-30-2024 15:53-0500 Body mass index (BMI) [Ratio] 25.61 kg/m2 Nay Beltran DO Work Phone: [facility] 12-30-2024 15:53-0500 Body temperature 97.11 [degF] Nay Beltran DO Work Phone: [facility] 12-30-2024 15:53-0500 Body weight 63.5 kg Nay Beltran DO Work Phone: [facility] 12-30-2024 15:53-0500 Diastolic blood pressure 82 mm[Hg] Nay Beltran DO Work Phone: [facility] 12-30-2024 15:53-0500 Heart rate 51 /min Nay Beltran DO Work Phone: [facility] 12-30-2024 15:53-0500 SaO2% (BldA) [Mass fraction] 98 % Nay Beltran DO Work Phone: [facility] 12-30-2024 15:53-0500 Systolic blood pressure 122 mm[Hg] Nay Beltran DO Work Phone: [facility] 08-18-2024 11:15-0400 Body mass index (BMI) [Ratio] 25.97 kg/m2 Nathan Kiesha DO Work Phone: [facility] 08-18-2024 11:15-0400 Body weight 64.41 kg Nathan Kiesha DO Work Phone: [facility] 08-18-2024 11:15-0400 Diastolic blood pressure 70 mm[Hg] Nathan Kiesha DO Work Phone: [facility] 08-18-2024 11:15-0400 Systolic blood pressure 112 mm[Hg] Nathan Kiesha DO Work Phone: [facility] 07-22-2024 10:02-0400 Body mass index (BMI) [Ratio] 25.39 kg/m2 Nathan Kiesha DO Work Phone: [facility] 07-22-2024 10:02-0400 Body weight 62.96 kg Nathan Kiesha DO Work Phone: [facility] 07-22-2024 10:02-0400 Diastolic blood pressure 72 mm[Hg] Nathan Kiesha DO Work Phone: [facility] 07-22-2024 10:02-0400 Systolic blood pressure 122 mm[Hg] Nathan Kiesha DO Work Phone: [facility] 01-10-2024 10:55-0500 Body mass index (BMI) [Ratio] 28.17 kg/m2 Nathan Kiesha DO Work Phone: [facility] 01-10-2024 10:55-0500 Body weight 69.85 kg Nathan Kiesha DO Work Phone: [facility] 01-10-2024 10:55-0500 Diastolic blood pressure 84 mm[Hg] Nathan Kiesha DO Work Phone: [facility] 01-10-2024 10:55-0500 Systolic blood pressure 128 mm[Hg] Nathan Kiesha DO Work Phone: [facility] 09-12-2023 17:31-0400 Body temperature 98.96 [degF] [facility] 09-12-2023 17:31-0400 Diastolic blood pressure 91 mm[Hg] [facility] 09-12-2023 17:31-0400 FIO2 99 % [facility] 09-12-2023 17:31-0400 Heart rate 122 /min [facility] 09-12-2023 17:31-0400 Respiratory rate 16 /min [facility] 09-12-2023 17:31-0400 Systolic blood pressure 135 mm[Hg] [facility] 05-01-2023 10:55-0400 Body height 157.5 cm Srinivasa Reaper FINANCIAL RETIREMENT PLAN SPECIALIST.RECORDING CLERK Work Phone: [facility] 05-01-2023 10:55-0400 Body weight 64.86 kg Srinivasa Reaper FINANCIAL RETIREMENT PLAN SPECIALIST.RECORDING CLERK Work Phone: [facility] 05-01-2023 10:55-0400 Diastolic blood pressure 64 mm[Hg] Srinivasa Reaper FINANCIAL RETIREMENT PLAN SPECIALIST.RECORDING CLERK Work Phone: [facility] 05-01-2023 10:55-0400 Systolic blood pressure 148 mm[Hg] Srinivasa Reaper FINANCIAL RETIREMENT PLAN SPECIALIST.RECORDING CLERK Work Phone: [facility] 01-31-2023 19:18-0500 Diastolic blood pressure 82 mm[Hg] [facility] 01-31-2023 19:18-0500 Heart rate 98 /min [facility] 01-31-2023 19:18-0500 Nursing Progress Note Reason Other: this RN discharged pt. pt verbalizes understanding and denies questiosn prior to discharge. [facility] 01-31-2023 19:18-0500 Respiratory rate 16 /min [facility] 01-31-2023 19:18-0500 SaO2% (BldA) [Mass fraction] 100 % [facility] 01-31-2023 19:18-0500 Systolic blood pressure 126 mm[Hg] [facility] 01-31-2023 18:00-0500 Diastolic blood pressure 92 mm[Hg] [facility] 01-31-2023 18:00-0500 Heart rate 110 /min [facility] 01-31-2023 18:00-0500 Mean blood pressure 107 mm[Hg] [facility] 01-31-2023 18:00-0500 SaO2% (BldA) [Mass fraction] 99 % [facility] 01-31-2023 18:00-0500 Systolic blood pressure 138 mm[Hg] [facility] 01-31-2023 17:00-0500 Diastolic blood pressure 97 mm[Hg] [facility] 01-31-2023 17:00-0500 Mean blood pressure 104 mm[Hg] [facility] 01-31-2023 17:00-0500 Systolic blood pressure 117 mm[Hg] [facility] 01-31-2023 16:38-0500 Heart rate 105 /min [facility] 01-31-2023 16:38-0500 Mean blood pressure 114 mm[Hg] [facility] 01-31-2023 16:38-0500 Respiratory rate 18 /min [facility] 01-31-2023 13:49-0500 Body temperature 97.88 [degF] [facility] 01-31-2023 13:49-0500 Heart rate 118 /min [facility] 12-30-2022 14:55-0500 Body temperature 97.88 [degF] [facility] 12-30-2022 14:55-0500 Diastolic blood pressure 81 mm[Hg] [facility] 12-30-2022 14:55-0500 Heart rate 84 /min [facility] 12-30-2022 14:55-0500 Mean blood pressure 100 mm[Hg] [facility] 12-30-2022 14:55-0500 Respiratory rate 20 /min [facility] 12-30-2022 14:55-0500 SaO2% (BldA) [Mass fraction] 98 % [facility] 12-30-2022 14:55-0500 Systolic blood pressure 137 mm[Hg] [facility] 12-30-2022 14:35-0500 Body temperature 97.88 [degF] [facility] 12-30-2022 14:35-0500 Diastolic blood pressure 79 mm[Hg] [facility] 12-30-2022 14:35-0500 Heart rate 82 /min [facility] 12-30-2022 14:35-0500 Mean blood pressure 94 mm[Hg] [facility] 12-30-2022 14:35-0500 Respiratory rate 16 /min [facility] 12-30-2022 14:35-0500 SaO2% (BldA) [Mass fraction] 97 % [facility] 12-30-2022 14:35-0500 Systolic blood pressure 123 mm[Hg] [facility] 12-30-2022 13:35-0500 Body temperature 97.88 [degF] [facility] 12-30-2022 13:35-0500 Diastolic blood pressure 70 mm[Hg] [facility] 12-30-2022 13:35-0500 Heart rate 80 /min [facility] 12-30-2022 13:35-0500 Mean blood pressure 89 mm[Hg] [facility] 12-30-2022 13:35-0500 Respiratory rate 17 /min [facility] 12-30-2022 13:35-0500 SaO2% (BldA) [Mass fraction] 96 % [facility] 12-30-2022 13:35-0500 Systolic blood pressure 126 mm[Hg] [facility] 12-30-2022 13:00-0500 Respiratory rate 12 /min [facility] 12-30-2022 12:55-0500 Respiratory rate 9 /min [facility] 12-30-2022 12:50-0500 Respiratory rate 10 /min [facility] 12-30-2022 08:15-0500 Body temperature 98.24 [degF] [facility] 12-30-2022 08:15-0500 Heart rate 111 /min [facility] 12-02-2022 13:41-0500 Body temperature 98.2 [degF] Ritu Ryder DO Work Phone: [facility] 12-02-2022 13:41-0500 Diastolic blood pressure 87 mm[Hg] Ritu Ryder DO Work Phone: [facility] [employer] 12-02-2022 13:41-0500 Heart rate 111 /min Ritu Nievese DO Work Phone: [facility] 12-02-2022 13:41-0500 Respiratory rate 18 /min Riut Ryder DO Work Phone: [facility] [employer] 12-02-2022 13:41-0500 SaO2% (BldA) [Mass fraction] 99 % Ritu Ryder DO Work Phone: [facility] [employer] 12-02-2022 13:41-0500 Systolic blood pressure 143 mm[Hg] Ritu Nievese DO Work Phone: [facility] [employer] 11-28-2022 00:45-0500 Body height 157.5 cm Ritu Ryder DO Work Phone: [facility] [employer] 11-28-2022 00:45-0500 Body mass index (BMI) [Ratio] 25.61 kg/m2 Ritu Ryder DO Work Phone: [facility] 11-28-2022 00:45-0500 Body weight 63.5 kg Ritu Ryder DO Work Phone: [facility] [employer] 11-27-2022 22:26-0500 Hourly Rounding Fredi KARASIK [facility] Comment on above: Result Comment: ensured that all pt belo ngings are sent with pt. pt has no questions or concerns. report given to EMS. pt stable and no s/s of distress. pt off unit to transfer 11-27-2022 22:00-0500 Diastolic blood pressure 97 mm[Hg] Fredi KARASIK [facility] 11-27-2022 22:00-0500 Heart rate 134 /min Fredi KARASIK [facility] 11-27-2022 22:00-0500 Hourly Rounding Fredi KARASIK [facility] 11-27-2022 22:00-0500 Mean blood pressure 116 mm[Hg] Fredi KARASIK [facility] 11-27-2022 22:00-0500 Systolic blood pressure 154 mm[Hg] Fredi KARASIK [facility] 11-27-2022 21:50-0500 Blood Pressure Location Fredi KARASIK [facility] 11-27-2022 21:50-0500 Diastolic blood pressure 90 mm[Hg] Fredi KARASIK [facility] 11-27-2022 21:50-0500 Heart rate 133 /min Fredi KARASIK [facility] 11-27-2022 21:50-0500 Hourly Rounding Fredi KARASIK [facility] 11-27-2022 21:50-0500 Mean blood pressure 113 mm[Hg] Fredi KARASIK [facility] 11-27-2022 21:50-0500 Respiratory rate 18 /min Fredi KARASIK [facility] 11-27-2022 21:50-0500 SaO2% (BldA) [Mass fraction] 98 % Fredi KARASIK [facility] 11-27-2022 21:50-0500 Systolic blood pressure 159 mm[Hg] Fredi KARASIK [facility] 11-27-2022 21:37-0500 Blood Pressure Location Fredi KARASIK [facility] 11-27-2022 21:37-0500 Diastolic blood pressure 88 mm[Hg] Fredi KARASIK [facility] 11-27-2022 21:37-0500 Heart rate 131 /min Fredi KARASIK [facility] 11-27-2022 21:37-0500 Mean blood pressure 111 mm[Hg] Fredi KARASIK [facility] 11-27-2022 21:37-0500 SaO2% (BldA) [Mass fraction] 97 % Fredi KARASIK [facility] 11-27-2022 21:37-0500 Systolic blood pressure 158 mm[Hg] Fredi KARASIK [facility] 11-27-2022 21:30-0500 Blood Pressure Location Fredi KARASIK [facility] 11-27-2022 21:30-0500 Body temperature 98.6 [degF] Fredi KARASIK [facility] 11-27-2022 19:00-0500 Body temperature 98.24 [degF] Fredi KARASIK [facility] 11-27-2022 17:15-0500 Body temperature 98.06 [degF] Fredi KARASIK [facility] 11-27-2022 14:02-0500 Heart rate 99 /min Fredi KARASIK [facility] 07-14-2022 07:00-0400 Body temperature 98.6 [degF] Kaylinn Dokken [facility] 07-14-2022 07:00-0400 Diastolic blood pressure 67 mm[Hg] Kaylinn Dokken [facility] 07-14-2022 07:00-0400 Heart rate 80 /min Kaylinn Dokken [facility] 07-14-2022 07:00-0400 Mean blood pressure 83 mm[Hg] Kaylinn Dokken [facility] 07-14-2022 07:00-0400 Respiratory rate 17 /min Kaylinn Dokken [facility] 07-14-2022 07:00-0400 Systolic blood pressure 115 mm[Hg] Kaylinn Dokken [facility] 07-14-2022 06:07-0400 Body temperature 98.24 [degF] Kaylinn Dokken [facility] 07-14-2022 06:07-0400 Diastolic blood pressure 79 mm[Hg] Kaylinn Dokken [facility] 07-14-2022 06:07-0400 Heart rate 90 /min Kaylinn Dokken [facility] 07-14-2022 06:07-0400 Respiratory rate 18 /min Kaylinn Dokken [facility] 07-14-2022 06:07-0400 SaO2% (BldA) [Mass fraction] 100 % Kumar Villagomez [facility] 07-14-2022 06:07-0400 Systolic blood pressure 134 mm[Hg] Kumar Villagomez [facility] 07-14-2022 05:30-0400 Hourly Rounding Nathan KIESHA [facility] Comment on above: Result Comment: Pt discharged per physic santiago orders. Pt ambulates off unit with a steady gait 07-14-2022 05:15-0400 Diastolic blood pressure 77 mm[Hg] Nathan KIESHA [facility] 07-14-2022 05:15-0400 Heart rate 105 /min Nathan KIESHA [facility] 07-14-2022 05:15-0400 Hourly Rounding Nathan KIESHA [facility] 07-14-2022 05:15-0400 Mean blood pressure 89 mm[Hg] Nathan KIESHA [facility] 07-14-2022 05:15-0400 Respiratory rate 18 /min Nathan KIESHA [facility] 07-14-2022 05:15-0400 Systolic blood pressure 113 mm[Hg] Nathan KIESHA [facility] 04-18-2022 11:00-0400 Body height 160.02 cm Domo Hodges Other [employer] Other 04-18-2022 11:00-0400 Body mass index (BMI) [Ratio] 23.03 kg/m2 Domo Hodges Other [employer] Other 04-18-2022 11:00-0400 Body weight 58.97 kg Domo Hodges Other [facility] [employer] Other 02-09-2022 11:41-0400 Body height 157.48 cm Charlene Billow DO Work Phone: ZJ-WIJWB-Hvlwwi 320 Work Phone: 02-09-2022 11:41-0400 Body mass index (BMI) [Ratio] 24.51 kg/m2 Charlene Billow DO Work Phone: IK-ZSYAZ-Menezv 320 Work Phone: 02-09-2022 11:41-0400 Body surface area Derived from formula 1.61 m2 Charlene Billow DO Work Phone: CD-SGIGC-Jnfqkt 320 Work Phone: 02-09-2022 11:41-0400 Body weight 60.78 kg Charlene Billow DO Work Phone: MC-MHZJM-Fpyhmw 320 Work Phone: 02-09-2022 11:41-0400 Diastolic blood pressure 87 mm[Hg] Charlene Billow DO Work Phone: SJ-CIBSA-Quzujd 320 Work Phone: 02-09-2022 11:41-0400 Systolic blood pressure 136 mm[Hg] Charlene Billow DO Work Phone: XC-BWPYO-Qukzsb 320 Work Phone: 02-09-2022 11:41-0400 0 1 Charlene Billow DO Work Phone: ND-KZCAK-Gqdadd 320 Work Phone: Comment on above: GRAV PARA [employer] 04-19-2021 14:53-0400 Body height 157.48 cm Charlene Billow DO Work Phone: US-UQXZX-Hhrpkb 320 Work Phone: 04-19-2021 14:53-0400 Body mass index (BMI) [Ratio] 21.77 kg/m2 Charlene Billow DO Work Phone: OF-GJXZO-Qwhymq 320 Work Phone: 04-19-2021 14:53-0400 Body surface area Derived from formula 1.53 m2 Charlene Billow DO Work Phone: GE-BESCU-Dnnpzh 320 Work Phone: 04-19-2021 14:53-0400 Body weight 53.98 kg Charlene Billow DO Work Phone: TW-SJTYV-Mcatgh 320 Work Phone: 04-19-2021 14:53-0400 Diastolic blood pressure 83 mm[Hg] Charlene Billow DO Work Phone: UB-HTFYC-Jkdljg 320 Work Phone: 04-19-2021 14:53-0400 Heart rate 108 /min Charlene Billow DO Work Phone: IT-JALGQ-Mfxbhu 320 Work Phone: 04-19-2021 14:53-0400 Systolic blood pressure 142 mm[Hg] Charlene Billow DO Work Phone: BQ-FAHAZ-Hilyom 320 Work Phone: 04-19-2021 14:53-0400 0 1 Charlene Billow DO Work Phone: GA-UJOZO-Dcsuxh 320 Work Phone: Comment on above: GRAV PARA [employer] Encounters Encounter Date Encounter Type Care Provider Facility Start: 03-13-2025 End: 03-13-2025 ambulatory Nathan POP Facility:[facility] Start: 03-13-2025 End: 03-13-2025 Patient encounter procedure Nathan POP [facility] Start: 02-02-2025 End: 02-02-2025 Patient encounter procedure Cruz Rodríguez MD Work Phone: [facility] Work Phone: Start: 02-02-2025 End: 02-02-2025 ambulatory Cruz Rodríguez MD Work Phone: [facility] Work Phone: Start: 01-22-2025 End: 01-22-2025 ambulatory Nathan R KIESHA Facility:[facility] Start: 01-22-2025 End: 01-22-2025 Patient encounter procedure Nathan R KIESHA [facility] Start: 01-19-2025 End: 01-19-2025 Office outpatient visit 15 minutes Nathan Kiesha DO Work Phone: [facility] Comment on above: Pain in female genit edouard on intercourse; Endometriosis Start: 01-19-2025 End: 01-19-2025 ambulatory NATHAN KIESHA Not Available Start: 01-19-2025 End: 01-19-2025 Bamboo flowsheet Nathan Kiesha DO Work Phone: [facility] Start: 01-19-2025 End: 01-19-2025 Bamboo flowsheet Nathan Kiesha DO Work Phone: [facility] Start: 12-30-2024 End: 12-30-2024 ambulatory NAY BELTRAN Not Available Start: 12-30-2024 End: 12-30-2024 Office outpatient visit 15 minutes Nay Beltran DO Work Phone: [phone] Comment on above: Hypertension, unspec ified type (CMS/HCC) (Primary Dx); Paroxysmal tachycardia, unspecified (CMS/HCC); Chronic right shoulder pain; Scapular dyskinesis Start: 08-18-2024 End: 08-18-2024 Bamboo flowsheet Nathan Kiesha DO Work Phone: [facility] Start: 08-18-2024 End: 08-22-2024 Bamboo flowsheet Nathan Kiesha DO Work Phone: [facility] Start: 08-18-2024 End: 08-22-2024 Clinisync Result Encounter Nathan Kiesha DO Work Phone: [facility] Department Unsolicited Start: 08-18-2024 End: 08-18-2024 Patient encounter procedure Nathan Kiesha DO Work Phone: [facility] Work Phone: Start: 08-18-2024 End: 08-18-2024 Periodic preventive med est patient 18-39 yrs Nathan Kiesha DO Work Phone: [facility] Comment on above: Well woman exam with routine gynecological exam Start: 08-18-2024 End: 08-18-2024 ambulatory NATHAN KIESHA Not Available Start: 07-22-2024 End: 07-22-2024 Bamboo flowsheet Nathan Kiesha DO Work Phone: [facility] Start: 07-22-2024 End: 07-22-2024 Bamboo flowsheet Nathan Kiesha DO Work Phone: [facility] Start: 07-22-2024 End: 07-22-2024 ambulatory NATHAN KIESHA Not Available Start: 07-22-2024 End: 07-22-2024 Office outpatient visit 15 minutes Nathan Kiesha DO Work Phone: [facility] Comment on above: Dysmenorrhea, unspec ified Start: 04-29-2024 Telephone encounter Charlene Wilder ow DO Work Phone: [facility] Start: 04-25-2024 Telephone encounter Charlene Bill ow DO Work Phone: [facility] Comment on above: Surgery Cancelled Start: 03-11-2024 End: 03-11-2024 ambulatory ZENOBIA GUTIERREZ Not Available Start: 02-19-2024 End: 02-19-2024 ambulatory NAY BELTRAN Not Available Start: 01-30-2024 End: 01-30-2024 ambulatory NATHAN DYERO Not Available Start: 01-10-2024 End: 01-10-2024 Office outpatient visit 15 minutes Nathan Pop DO Work Phone: [facility] Comment on above: Menorrhagia with reg ular cycle; Pelvic pain in female; Uses control Start: 01-02-2024 Refill Charlene Billow D O Work Phone: [facility] Comment on above: Refill Request Start: 12-31-2023 ambulatory Charlene Billow D O Work Phone: Obstetrics/Gynecology Comment on above: pain Start: 12-10-2023 End: 12-10-2023 ambulatory CHARLENE BILLOW Facility:[facility] Start: 10-22-2023 ambulatory Charlene Billow D O Work Phone: [facility] Start: 10-22-2023 Patient encounter procedure Charlene Billow DO Work Phone: Obstetrics/Gynecology Comment on above: office visit Start: 09-12-2023 End: 09-12-2023 Emergency department patient visit Von Loco [facility] Start: 08-30-2023 Manual pelvic examination Charlene Billow DO Work Phone: Obstetrics/Gynecology Comment on above: Pelvic pain in femal e (Primary Dx) Start: 08-26-2023 ambulatory Charlene Billow D O Work Phone: Obstetrics/Gynecology Comment on above: painful periods Start: 08-24-2023 End: 08-24-2023 Manual pelvic examination Srinivasa Reaper FINANCIAL RETIREMENT PLAN SPECIALIST.RECORDING CLERK Work Phone: Gynecology Comment on above: High-tone pelvic stella or dysfunction (Primary Dx); Chronic pelvic pain in female Start: 08-24-2023 End: 08-24-2023 Telemedicine consultation with patient Srinivasa Reaper FINANCIAL RETIREMENT PLAN SPECIALIST.RECORDING CLERK Work Phone: [facility] Start: 08-24-2023 End: 08-24-2023 ambulatory SRINIVASA REAPER Facility:[facility] Start: 08-13-2023 ambulatory Charlene Rodriguez D O Work Phone: Obstetrics/Gynecology Comment on above: painful period Start: 08-02-2023 Telephone encounter Charlene Wilder ow DO Work Phone: Gynecology Comment on above: Insurance Authorizat ion (Orilissa) Start: 07-16-2023 End: 07-16-2023 ambulatory CHARLENE BILLOW Facility:[facility] Start: 06-12-2023 End: 06-12-2023 ambulatory CHARLENE [facility] Facility:[facility] Start: 06-12-2023 End: 06-12-2023 Subsequent hospital visit by physician Maurice Maria [facility] (I-Stat/1.5t) Radiology Comment on above: Pelvic and perineal pain [R10.2] Start: 05-17-2023 End: 05-17-2023 Manual pelvic examination Charlene Rodriguez DO Work Phone: Obstetrics/Gynecology Comment on above: Endometriosis (Prima ry Dx); Pelvic and perineal pain Start: 05-17-2023 End: 05-17-2023 Telemedicine consultation with patient Charlene Rodriguez DO Work Phone: [facility] Start: 05-17-2023 End: 05-17-2023 ambulatory [facility] Facility:[facility] Start: 05-11-2023 Telephone encounter Charlene Wilder ow DO Work Phone: Gynecology Comment on above: Vaginal Bleeding Start: 05-01-2023 End: 05-01-2023 ambulatory [facility] Facility:[facility] Start: 05-01-2023 End: 05-01-2023 Patient encounter procedure Srinivasa Vicker FINANCIAL RETIREMENT PLAN SPECIALIST.RECORDING CLERK Work Phone: Gynecology Comment on above: Chronic pelvic pain in female (Primary Dx); Constipation, unspecified constipation type; High-tone pelvic floor dysfunction; Diastasis of rectus abdominis; Dysmenorrhea; Other specified dyspareunia Start: 04-22-2023 ambulatory Charlene Billbarbara D O Work Phone: Obstetrics/Gynecology Comment on above: painful Start: 01-31-2023 End: 01-31-2023 Emergency department patient visit Edin Bermudez [facility] Start: 12-30-2022 End: 12-30-2022 Patient encounter procedure Edin Bermudez [facility] Start: 12-05-2022 End: 12-05-2022 [facility] Start: 12-05-2022 End: 12-05-2022 Office outpatient visit 15 minutes [facility] Work Phone: [facility] Comment on above: Pre-eclampsia, sever e, delivered (Primary Dx) Start: 11-28-2022 End: 12-02-2022 Evaluation and management of inpatient RITU RYDER [facility] Start: 11-28-2022 End: 12-02-2022 Evaluation and management of inpatient Ritu Ryder DO Work Phone: [facility] Comment on above: Preeclampsia, severe , third trimester (Primary Dx) Start: 11-28-2022 End: 12-27-2022 Pre-admission assessment Fredi DORSEY [facility] Start: 11-27-2022 End: 11-27-2022 OB Triage Fredi DORSEY [facility] Start: 07-14-2022 End: 07-14-2022 Emergency department patient visit Kumar Villagomez [facility] Start: 07-14-2022 End: 07-14-2022 OB Triage Nathan POP [facility] Start: 04-25-2022 End: 04-25-2022 Patient encounter procedure DOMO HODGES [facility] Start: 04-18-2022 End: 04-18-2022 ambulatory Domo [facility] Other Start: 04-18-2022 Patient encounter procedure Domo Hodges [facility] G[facility] Start: 02-09-2022 Office outpatient vi sit 15 minutes Charlene Rodriguez DO Work Phone: [id number] 320 Work Phone: Start: 09-29-2021 End: 10-02-2021 ambulatory OPAL LARA [facility] Start: 09-29-2021 End: 10-02-2021 ambulatory [facility] Start: 04-19-2021 AUDIT Charlene Keating O Work Phone: [id number] 320 Work Phone: Start: 04-19-2021 PLVCPOBGYN, Provider : Charlene Rodriguez, Status: Pen, Time: 2:45 PM Nicholas Chau MD Work Phone: [id number]-Zpdajryut Work Phone: Start: 04-18-2021 Chart Update Nicholas Keating Work Phone: [id number]-Gvhdonufi Work Phone: Procedures Date Procedure Procedure Detail Performing Clinician Start: 08-18-2024 IGP,APTIMA HPV,AGE GDLN Nathan Kiesha DO Work Phone: Start: 08-15-2023 Cytp cerv/vag auto t hin layer prep mnl screen Nathan Kiesha DO Work Phone: Start: 06-12-2023 Mri pelvis w/o & w/c ontrast material Charlene Rodriguez DO Work Phone: Start: 11-29-2022 Blood count platelet automated Jimmie Kaur FINANCIAL RETIREMENT PLAN SPECIALIST - SHIPPING PACKER Work Phone: Start: 11-28-2022 Blood count platelet automated Cassie Constantino MD Work Phone: Start: 11-28-2022 Iadna streptococcus group b amplified probe tq Cassie Constantino MD Work Phone: Start: 11-28-2022 ABO and Rh group [Ty pe] in Blood by Confirmatory method Cassie Constantino MD Work Phone: Start: 11-28-2022 Blood typing serologic abo Cassie Constantino MD Work Phone: Start: 11-28-2022 Comprehensive metabo lic panel Cassie Constantino MD Work Phone: Start: 05-16-2021 Antibody hiv-1&hiv-2 single result Megadyne [id number] Start: 05-16-2021 Iaad ia hepatitis b surface antigen Megadyne [id number] Start: 02-28-2021 Cystoscopy DOMO BROWNE Start: 08-30-2020 End: 08-30-2020 Antibody screen Comment on above: Performed By: #### T +S #### [facility] [address] [place] [address] Order Comment: TEST TYPE + SCREEN WAS CANCELLED, 08/30/2020 13:37 JOP. Performed By: #### T +S #### [facility] [address] [place] [address] Start: 08-07-2018 RIGHT SHOULDER OPEN DISTAL CLAVICLE [...] Treatment Date Care Activity Detail Author Start: 2045 Zoster Vaccines (1 of 2) Zoste r Vaccines (1 of 2) GdeSlon Start: 09-07-2025 End: 09-07-2025 Patient encounter procedure 09/07/2025 4:00 PM EDT Office Visit [facility] [address] [place] [id number] Nathan Pop, DO [address] [place] [address] [facility] Start: 08-24-2025 End: 08-24-2025 Patient encounter procedure 08/24/2025 11:00 AM EDT Office Visit [facility] [address] [place] [phone] Nathan Pop, DO [address] [place] [address] [facility] Start: 01-19-2025 End: 01-19-2025 Patient encounter procedure [facility] Comment on above: Arrived Start: 01-19-2025 End: 01-19-2026 Progesterone Progesterone Lab Routine Pain in female genitalia on intercourse Endometriosis Expected: 01/19/2025 (Approximate), Expires: 01/19/2026 [facility] Work Phone: Comment on above: Expected: 01/19/2025 (Approximate), Expires: 01/19/2026 Start: 08-18-2024 End: 08-18-2024 Patient encounter procedure [facility] Comment on above: Arrived Start: 07-27-2024 [facility] Start: 07-22-2024 End: 07-22-2025 US for US PELVIS-TRANSVAG IF INDICATED Imaging Routine Dysmenorrhea, unspecified Expected: 07/22/2024 (Approximate), Expires: 07/22/2025 [facility] Work Phone: Comment on above: Expected: 07/22/2024 (Approximate), Expires: 07/22/2025 Start: 06-23-2024 End: 06-23-2024 Patient encounter procedure 06/23/2024 10:30 AM EDT Office Visit Obstetrics/Gynecology [address] [place] [address] Charlene Rodriguez DO [address] [place] [address] 2 WEEK POST OP Obstetrics/Gynecolog y Comment on above: 2 WEEK POST OP Start: 05-27-2024 End: 05-27-2024 Admission to same day surgery center 05/27/2024 7:30 AM EDT - 05/27/2024 9:30 AM EDT Surgery [facility] [address] [place] [address] Charlene Rodriguez, [address] [place] [address] LAPAROSCOPY FULGURATION OR EXCISION OF LESIONS OF THE OVARY PELVIC VISCERA OR PERITONEAL SURFACE BY ANY METHOD [facility] Comment on above: LAPAROSCOPY FULGURAT ION [...] Hospital Encounter [facility] [address] [place] [address] Charlene Rodriguez DO [address] [place] [address] Endometriosis [N80.9] [facility] Comment on above: Endometriosis [N80.9 ] Start: 05-25-2024 Influenza vaccination Influenza Vacc ine (#1) [facility] Comment on above: Postponed from 07/27 (Patient Refused) Start: 05-20-2024 End: 05-20-2024 ambulatory 05/20/2024 10:00 AM EDT [facility] 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 [employer] [facility] [address] [place] [address] [employer], [employer] Customer Service Clerk Nurse [address] [place] [address] 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 [employer] [facility] Comment on above: RN TEACHING Start: 04-22-2024 End: 04-22-2024 Patient encounter procedure 04/22/2024 9:00 AM EDT Office Visit [facility] [address] [place] [phone] Cruz Rodríguez MD [address] [place] [address] [facility] Start: 2024 DTaP/Tdap/Td Vaccine s (7 - Td or Tdap) DTaP/Tdap/Td Vaccines (7 - Td or Tdap) [facility] Start: 2024 Urine microalbumin profile DTaP,Tdap,Td Vaccine (7 - Td or Tdap) [facility] Start: 01-30-2024 End: 01-30-2024 Patient encounter procedure 01/30/2024 11:10 AM EST Consult [facility] [address] [place] [phone] Nathan Pop, DO [address] [place] [address] [facility] Start: 01-15-2024 End: 01-15-2024 Professional / ancillary services management 01/15/2024 8:00 AM EST Ancillary Procedure [facility] [address] [place] [phone] [facility] Start: 01-10-2024 End: 01-10-2025 US for US PELVIS-TRANSVAG IF INDICATED Imaging Routine Pelvic pain in female Expected: 01/10/2024 (Approximate), Expires: 01/10/2025 [facility] Work Phone: Comment on above: Expected: 01/10/2024 (Approximate), Expires: 01/10/2025 Start: 11-26-2023 Behavioral Health Screening Behavioral Health Screening [facility] Start: 11-26-2023 [facility] Start: 07-27-2023 Covid-19 Vaccine () Covid-19 Vaccine () [facility] Start: 07-27-2023 Influenza vaccination C [facility] Start: 11-26-2022 DEPRESSION ASSESSMENT DEPRESSION ASS ESSMENT [facility] Start: 07-27-2022 Influenza vaccination Influenza Vacc ine (#1) [facility] Start: 05-23-2022 FUV, Provider: Charlene Rodriguez, Status: Pen, Time: 1:30 PM FUV, Provider: Charlene Rodriguez, Status: Pen, Time: 1:30 PM [id number] 320 Work Phone: Start: 08-16-2021 FUV, Provider: Charlene Rodriguez, Status: Pen, Time: 11:15 AM FUV, Provider: Charlene Rodriguez, Status: Pen, Time: 11:15 AM [id number] 320 Work Phone: Start: 2016 PAP TESTING PAP TESTING [facility] Start: 2016 Screening for malign ant neoplasm of cervix [facility] Start: 2014 DTaP/Tdap/Td Vaccine s (1 - Tdap) DTaP/Tdap/Td Vaccines (1 - Tdap) [facility] Start: 2014 Urine microalbumin profile [facility] Start: 2013 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 Start: 2013 Hepatitis C screening Hepatitis C [facility] Start: 2013 HIV SCREENING HIV SCREENING [facility] Start: 2013 HIV screening HIV Screening [facility] Start: 05-31-2000 Varicella vaccination Varicell a Vaccines (1 of 2 - 2-dose childhood series) [facility] Start: 1996 MMR Vaccines (1 of 1 - Standard series) MMR Vaccines (1 of 1 - Standard series) [facility] Start: 1996 Varicella vaccination Varicell a Vaccines (1 of 2 - 2-dose childhood series) [facility] Start: 1995 COVID-19 VACCINE (#1) COVID-19 VACCI NE (#1) [facility] Start: 1995 HEPATITIS B (1 of 3 - 3-dose series) HEPATITIS B (1 of 3 - 3-dose series) [facility] Start: 1995 Hepatitis B Vaccine (1 of 3 - 3-dose series) Hepatitis B Vaccine (1 of 3 - 3-dose series) [facility] Start: 1995 Hepatitis B Vaccines (1 of 3 - 3-dose series) Hepatitis B Vaccines (1 of 3 - 3-dose series) [facility] Start: 1995 Lipid panel Lipid Panel [facility] Cytology Cervical or vaginal smear or scraping study Pap Smear Pathology and Cytology Routine Well woman exam with routine gynecological exam Ordered: 08/18/2024 [facility] Work Phone: Comment on above: Ordered: 08/18/2024 End: 06-15-2024 Mri pelvis w/o & w/contrast material MRI FEMALE PELVIS WO/W IVCON Radiology Routine Pelvic and perineal pain 1 Occurrences starting 05/17/2023 until 06/15/2024 [facility] Work Phone: Comment on above: 1 Occurrences starti ng 05/17/2023 until 06/15/2024 End: 11-30-2022 Tissue exam [facility] Work Phone: Comment on above: Once (Lab) for 1 Occ urrences starting 11/30/2022 until 11/30/2022, 1 completed [facility] [place] OR Immunizations Immunization Date Immunization Notes Care Provider Mary walters 09-11-2014 hepatitis A vaccine, adult dosage Nathan Kiesha DO Work Phone: [facility] 09-11-2014 human papilloma viru s vaccine, quadrivalent Nathan Kiesha DO Work Phone: [facility] 09-11-2014 influenza, seasonal, injectable, preservative free Nathan Kiesha DO Work Phone: [facility] 09-11-2014 influenza virus vaccine, unspecified formulation Tonia Moschella DO Work Phone: [facility] 05-04-2014 human papilloma viru s vaccine, quadrivalent Nathan Kiesha DO Work Phone: [facility] 2014 hepatitis A vaccine, adult dosage Nathan Kiesha DO Work Phone: [facility] 2014 human papilloma viru s vaccine, quadrivalent Nathan Kiesha DO Work Phone: [facility] 2014 tetanus toxoid, redu quinton diphtheria toxoid, and acellular pertussis vaccine, adsorbed Nathan Kiesha DO Work Phone: [facility] 04-03-2007 meningococcal polysaccharide (groups A, C, Y and W-135) diphtheria toxoid conjugate vaccine (MCV4P) Nathan Kiesha DO Work Phone: [facility] 05-03-2000 diphtheria, tetanus toxoids and acellular pertussis vaccine, unspecified formulation Nathan Kiesha DO Work Phone: [facility] 05-03-2000 measles, mumps and rubella virus vaccine Nathan Kiesha DO Work Phone: [facility] 05-03-2000 poliovirus vaccine, inactivated Nathan Kiesha DO Work Phone: [facility] 12-29-1997 diphtheria, tetanus toxoids and acellular pertussis vaccine, unspecified formulation Nathan Kiesha DO Work Phone: [facility] 08-01-1996 DTP-Haemophilus influenzae type b conjugate vaccine Nathan Kiesha DO Work Phone: [facility] 08-01-1996 hepatitis B vaccine, pediatric or pediatric/adolescent dosage Nathan Kiesha DO Work Phone: [facility] 08-01-1996 measles, mumps and rubella virus vaccine Nathan Kiesha DO Work Phone: [facility] 08-01-1996 trivalent poliovirus vaccine, live, oral Nathan Kiesha DO Work Phone: [facility] 1995 DTP-Haemophilus influenzae type b conjugate vaccine Nathan Kiesha DO Work Phone: [facility] 1995 hepatitis B vaccine, pediatric or pediatric/adolescent dosage Nathan Kiesha DO Work Phone: [facility] 1995 trivalent poliovirus vaccine, live, oral Nathan Kiesha DO Work Phone: [facility] 1995 DTP-Haemophilus influenzae type b conjugate vaccine Nathan Kiesha DO Work Phone: [facility] 1995 hepatitis B vaccine, pediatric or pediatric/adolescent dosage Nathan Kiesha DO Work Phone: [facility] 1995 trivalent poliovirus vaccine, live, oral Nathan Kiesha DO Work Phone: [facility] NEGATED: Highlighted row has not occurred!12-02-2022 measles, mumps and rubella virus vaccine Ritucarlos Ryder DO Work Phone: [facility] [employer] Comment on above: Deferred: Other - Ru haja Immune NEGATED: Highlighted row has not occurred!12-02-2022 tetanus toxoid, reduced diphtheria toxoid, and acellular pertussis vaccine, adsorbed Ritu Ryder DO Work Phone: [facility] Comment on above: Deferred: No longer needed - Refused Tdap vaccine. Payers Date Payer Category Payer Self-pay 2024 Private Health Insurance [employer] [id number] 2024 Unknown [id number] 2022 Unknown 2022 Unknown [id number] 2022 Medicaid [id number] 2020 Unknown [id number] 2018 Medicaid [id number] 2018 Private Health Insurance [id number] 1995 Unknown [id number] 1995 Unknown [id number] 1995 Unknown [id number] [id number] 1995 Unknown [id number] [id number] 1995 Unknown [id number] [id number] 1995 Unknown [id number] [id number] 1995 Unknown [id number] [id number] 1995 Unknown [id number] [id number] 1995 Unknown [id number] [id number] 1995 Unknown [id number] 1995 Unknown [id number] Unknown [id number] Social History Date Type Detail Facility Start: 07-16-2023 End: 12-29-2024 Always uses seat belt Always uses seat belt [facility] Start: 03-10-2021 End: 05-16-2022 Tobacco smoking status Never smoked tobacco (finding) [facility] Tobacco smoking status Never [facility] Start: 07-16-2023 End: 12-29-2024 Sex Assigned At Female [facility] [id number] Other Tobacco [facility] Comment on above: denies. Tobacco smoking status [facility] Start: 04-11-2023 End: 05-01-2023 Tobacco use and exposure Smokeless tobacco non-user [facility] Start: 04-11-2023 End: 12-10-2023 Alcohol intake Current drinker of alcohol (finding) [facility] Start: 10-08-2020 Alcohol Comment maybe a few dr martinez a month [facility] Start: 1995 Sex Assigned At Not on file S [facility] Start: 01-10-2024 End: 01-19-2025 Alcohol intake Lifetime non-drinker (finding) [facility] Within the last year , have you [...] Not at all [facility] (I/We) worried tammy sherman (my/our) food would run out before (I/we) got money to buy more. Never true [facility] Start: 04-23-2023 Education 13 [facility] Start: 04-23-2023 Alcohol Comment caffeine: 1-2 cups per day, coffee and pop [facility] Start: 11-28-2022 History SDOH IPV Fear 2 [facility] Start: 11-28-2022 History SDOH Housing Places Lived 1 [facility] Start: [facility]-12-2022 [facility] Start: 11-18-2022 End: 12-05-2022 Exposure to SARS-CoV-2 (event) Not sure [facility] Are you now , , , , never or living with a partner? [facility] Do you feel stress - tense, restless, nervous, or anxious, or unable to sleep at night because your mind is troubled all the time - these days [OSQ] Only a little [facility] Start: 10-11-2016 End: 02-03-2025 Sex Female (finding) [facility] Start: 1995 Sex Assigned At Female F [facility] Functional Status Date Assessment Result Facility 09-12-2023 Functional Status N/A [facility] 01-31-2023 Functional Status N/A [facility] 12-30-2022 Functional Status N/A [facility] 11-27-2022 Functional Status N/A [facility] 07-14-2022 N/A [facility] Clinical Notes 04-18-2022 to 01-19-2025 Christa Yanes, GODFREY - 01/19/2025 2:50 PM Ramon Beltran DO - 12/30/2024 3:40 PM Radha Steen LPN - 08/18/2024 11:00 AM Venus Ravi LPN - 07/22/2024 9:50 AM EDT Note Date & Type Note Facility 01-19-2025 History of Presen t illness Narrative Reason for Appointment: Patient ID: Driss Daniel Gama is a 29 y.o. female who presents for Painful [facility] Patient presents today for Consult appointment. MEDICATIONS Current Outpatient Medications Medication Instructions [id number]-klepsw ne 50-325-40 MG tablet 1 tablet, Oral, Every 6 hours PRN meloxicam (MOBIC) 15 mg, Oral, Daily metoprolol succinate XL (Toprol-XL) 25 MG 24 hr tablet Take 1 tablet by mouth daily ALLERGIES No Known Allergies PROBLEMS Active Ambulatory Problems Diagnosis Date Noted Acquired equinus deformity of foot 03/29/2023 Displacement of cervical intervertebral disc without myelopathy 03/29/2023 Dysmenorrhea 03/29/2023 Endometriosis 03/29/2023 Gastroparesis 03/29/2023 Hypertension ([facility]/HCC) 03/29/2023 Intractable migraine without aura and with status migrainosus ([facility]/HCC) 03/29/2023 Migraines (CMS/HCC) 03/29/2023 Chronic pelvic pain in female 03/29/2023 Pain in female genitalia on intercourse 03/29/2023 Pain on swallowing 03/29/2023 Panic disorder (CMS/HCC) 03/29/2023 Patellofemoral disorders, left knee 03/29/2023 Patellofemoral disorders, right knee 03/29/2023 Posterior calcaneal exostosis 03/29/2023 Scapular dyskinesis 03/29/2023 Scoliosis 03/29/2023 Seasonal allergic rhinitis due to pollen 03/29/2023 Tachycardia, paroxysmal ([facility]/HCC) 03/29/2023 Tension headache 03/29/2023 Vitamin B12 deficiency 03/29/2023 Vitamin D deficiency 03/29/2023 Chronic right shoulder pain 03/29/2023 Tachycardia 02/19/2024 Obesity (BMI 30-39.9) 02/19/2024 Resolved Ambulatory Problems Diagnosis Date Noted No Resolved Ambulatory Problems Past Medical History: Diagnosis Date Amenorrhea d/t oral contraceptive pills [place] infection Headache History of menstrual cramps Varicella zoster Visual impairment HISTORY PAST MEDICAL HISTORY SOCIAL HISTORY Past Medical History: Diagnosis Date Amenorrhea d/t oral contraceptive pills Endometriosis [facility] infection Headache History of menstrual cramps severe Hypertension (CMS/HCC) x1 Varicella zoster unsure Visual impairment w/ corrective lenses Social History Tobacco Use Smoking status: Never Smokeless tobacco: Never Substance Use Topics Alcohol use: Never Comment: caffeine: 1-2 cups per day, coffee and pop Drug use: Never FAMILY HISTORY Family History Problem Relation Name Age of Onset Hypertension Mother tracie Colon cancer Father Anemia Father Breast cancer Maternal Grandmother Hypertension Maternal Grandfather sachin Cancer Maternal Grandfather sachin Colon cancer Paternal Grandfather SURGICAL HISTORY Past Surgical History: Procedure Laterality Date APPENDECTOMY 05/2016 at [facility] DILATION AND CURETTAGE 12/2022 retained placenta DISTAL CLAVICLE EXCISION Right 07/2018 Shoulder - open - DAP LAPAROSCOPY DIAGNOSTIC / BIOPSY / ASPIRATION / LYSIS 02/2019 endometriosis, 2020 LAPAROSCOPY DIAGNOSTIC / BIOPSY / ASPIRATION / LYSIS 02/29/2024 SHOULDER SURGERY Right open distal clavicle excision-DAP VAGINAL DELIVERY 11/2022 REVIEW OF SYSTEMS Review of Systems: Review of Systems All other systems reviewed and are negative. OBJECTIVE Objective: Physical Exam Constitutional: Appearance: Normal appearance. She [...] nursing note reviewed. Exam conducted with a precision farming specialist present. Vitals: Estimated body mass index is 25.99 kg/m as calculated from the following: Height as of 12/30/24: 5' 2 . Weight as of this encounter: 142 lb 1.9 oz. BP: 122/78 No LMP recorded. ASSESSMENT & PLAN ICD-10-CM 1. Pain in female genitalia on intercourse N94.10 Patient stopped OCP beginning of December 09, 2024. Had normal cycle in December. Patient to have US done that was ordered June of 2024. Discussed fertility medication to help with conceiving. Patient has endometriosis and has had a few scopes done in the past. Patient to call office in 2 months if she desires to have Femara to help to conceive. Handout reveiwed with patient and patient given direct extension to [employer] for any questions/concerns pertaining to fertility. Documented by Christa Yanes LPN on behalf of: Nathan Pop DO documented in this encounter [facility] 12-30-2024 History of Presen t illness Narrative Images from the original note were not included. SUBJECTIVE: Driss Gama is a 29 y.o. female presents with chief complaint of Shoulder Pain Shoulder pain: Has complaints of shoulder pain. Onset: for quite a while but this is the longest episode . Described as a burning pain. OTC ibuprofen, icy hot rub, and heat with no relief. Shoulder Pain This is a recurrent problem. The current episode started more than 1 month ago. The problem occurs constantly. Pertinent negatives include no limited range of motion, numbness or stiffness. She has tried NSAIDS and heat for the symptoms. The treatment provided no relief. Review of Systems: Review of Systems Musculoskeletal: Negative for stiffness. Neurological: Negative for numbness. Problem List: Patient Active Problem List Diagnosis Acquired equinus deformity of foot Displacement of cervical intervertebral disc without myelopathy Dysmenorrhea Endometriosis Gastroparesis Hypertension (CMS/HCC) Intractable migraine without aura and with status migrainosus (CMS/HCC) Migraines (CMS/HCC) Chronic pelvic pain in female Pain in female genitalia on intercourse Pain on swallowing Panic disorder (CMS/HCC) Patellofemoral disorders, left knee Patellofemoral disorders, right knee Posterior calcaneal exostosis Scapular dyskinesis Scoliosis Seasonal allergic rhinitis due to pollen Tachycardia, paroxysmal (CMS/HCC) Tension headache Vitamin B12 deficiency Vitamin D deficiency Other chronic pain Tachycardia Obesity (BMI 30-39.9) Past Medical History: Past Medical History: Diagnosis Date Amenorrhea d/t oral contraceptive pills Endometriosis John San infection Headache History of menstrual cramps severe Hypertension (CMS/HCC) x1 Varicella zoster unsure Visual impairment w/ corrective lenses Family History: Family History Problem Relation Name Age of Onset Hypertension Mother tracie Colon cancer Father Anemia Father Breast cancer Maternal Grandmother Hypertension Maternal Grandfather sachin Cancer Maternal Grandfather sachin Colon cancer Paternal Grandfather Allergies: No Known Allergies Surgical History: Past Surgical History: Procedure Laterality Date APPENDECTOMY 05/2016 at [facility] DILATION AND CURETTAGE 12/2022 retained placenta DISTAL CLAVICLE EXCISION Right 07/2018 Shoulder - open - DAP LAPAROSCOPY DIAGNOSTIC / BIOPSY / ASPIRATION / LYSIS 02/2019 endometriosis, 2020 LAPAROSCOPY DIAGNOSTIC / BIOPSY / ASPIRATION / LYSIS 02/29/2024 SHOULDER SURGERY Right open distal clavicle excision-DAP VAGINAL DELIVERY 11/2022 Social History: Social Drivers of Health Tobacco Use: Low Risk (12/30/2024) Patient History Smoking Tobacco Use: Never Smokeless Tobacco Use: Never Passive Exposure: Not on file Alcohol Use: Not At Risk (12/29/2024) AUDIT-C Frequency of Alcohol Consumption: Monthly or less Average Number of Drinks: Patient does not drink Frequency of Binge Drinking: Never Financial Resource Strain: Low Risk (12/29/2024) Overall Financial Resource Strain (CARDIA) Difficulty of Paying Living Expenses: Not hard at all Food Insecurity: No Food Insecurity (12/29/2024) Hunger Vital Sign Worried About Running Out of Food in the Last Year: Never true Ran Out of Food in the Last Year: Never true Transportation Needs: No Transportation Needs (12/29/2024) PRAPARE - Transportation Lack of Transportation (Medical): No Lack of Transportation (Non-Medical): No Physical Activity: Insufficiently Active (12/29/2024) Exercise Vital Sign Days of Exercise per Week: 3 days Minutes of Exercise per Session: 20 min Stress: No Stress Concern Present (12/29/2024) [employer] - Occupational Stress Questionnaire Feeling of Stress : Only a little Social Connections: Unknown (12/29/2024) Social Connection and Isolation Panel [NHANES] Frequency of Communication with Friends and Family: More than three times a week Frequency of Social Gatherings with Friends and Family: Once a week Attends [employer] Services: Patient declined Active Member of Clubs or Organizations: No Attends Club or Organization Meetings: Patient declined Marital Status: Intimate Partner Violence: Not At Risk (09/19/2023) Humiliation, Afraid, Rape, and Kick questionnaire Fear of Current or Ex-Partner: No Emotionally Abused: No Physically Abused: No Sexually Abused: No Depression: Not at risk (02/19/2024) PHQ-2 PHQ-2 Score: 0 Housing Stability: Unknown (12/29/2024) Housing Stability Vital Sign Unable to Pay for Housing in the Last Year: No Number of Times Moved in the Last Year: Not on file Homeless in the Last Year: No Health Literacy: Adequate Health Literacy (12/29/2024) B1300 Health Literacy Frequency of need for help with medical instructions: Never OBJECTIVE: Visit Vitals Smoking Status Never Physical Exam Constitutional: Appearance: Normal appearance. HENT: Head: Normocephalic and atraumatic. Eyes: Extraocular Movements: Extraocular movements intact. Conjunctiva/sclera: Conjunctivae normal. Pupils: Pupils are equal, round, and reactive to light. Cardiovascular: Rate and Rhythm: Normal rate and regular rhythm. Pulmonary: Effort: Pulmonary effort is normal. Breath sounds: Normal breath sounds. Abdominal: General: Bowel sounds are normal. Palpations: Abdomen is soft. Musculoskeletal: General: Normal range of motion. Skin: General: Skin is warm and dry. Neurological: General: No focal deficit present. Mental Status: She is alert and oriented to person, place, and time. Psychiatric: Mood and Affect: Mood normal. Thought Content: Thought content normal. Judgment: Judgment normal. No results found for this or any previous visit (from the past 4 weeks). ASSESSMENT AND PLAN: Assessment/Plan Diagnoses and all orders for this visit: Hypertension, unspecified type (CMS/HCC) - metoprolol succinate XL (Toprol-XL) 25 MG 24 hr tablet; Take 1 tablet by mouth daily Paroxysmal tachycardia, unspecified (CMS/HCC) Problem is stable, will continue with current treatment plan. Call or return to clinic if any changes occur Chronic right shoulder pain Patient advised to return if symptoms worsen and/or persist despite treatment. - meloxicam (Mobic) 15 MG tablet; Take 1 tablet (15 mg) by mouth Daily - cyclobenzaprine (Flexeril) 5 MG tablet; Take 1 tablet (5 mg) by mouth in the morning and 1 tablet (5 mg) in the evening and 1 tablet (5 mg) before bedtime. Do all this for 10 days. Scapular dyskinesis - meloxicam (Mobic) 15 MG tablet; Take 1 tablet (15 mg) by mouth Daily - cyclobenzaprine (Flexeril) 5 MG tablet; Take 1 tablet (5 mg) by mouth in the morning and 1 tablet (5 mg) in the evening and 1 tablet (5 mg) before bedtime. Do all this for 10 days. Updated Medications: I have reviewed and reconciled the history and medication list with the patient today. Current Outpatient Medications: qzletbmecx-schnomqwpxlmu-mwensv ne 50-325-40 MG tablet, Take 1 tablet by mouth every 6 (six) hours if needed for headaches, Disp: 20 tablet, Rfl: 0 desogestrel-ethinyl estradiol (Apri) 0.15-30 MG-MCG tablet, Take 1 tablet by mouth Daily, Disp: 21 tablet, Rfl: 12 metoprolol succinate XL (Toprol-XL) 25 MG 24 hr tablet, Take 1 tablet by mouth daily, Disp: 90 tablet, Rfl: 1 documented in this encounter [facility] 08-18-2024 History of Presen t illness Narrative Reason for Appointment: Patient ID: Driss Cope is a 29 y.o. female who presents for Well Women Visit Patient presents today for Annual Exam. MEDICATIONS Current Outpatient Medications Medication Instructions behzxbycca-uwstklkfisfbc-czbtwn ne 50-325-40 MG tablet 1 tablet, Oral, Every 6 hours PRN desogestrel-ethinyl estradiol (Apri) 0.15-30 MG-MCG tablet 1 tablet, Oral, Daily metoprolol succinate XL (Toprol-XL) 25 MG 24 hr tablet Take 1 tablet by mouth daily ALLERGIES No Known Allergies PROBLEMS Active Ambulatory Problems Diagnosis Date Noted Acquired [...] D deficiency 03/29/2023 Other chronic pain 03/29/2023 Tachycardia 02/19/2024 Obesity (BMI 30-39.9) 02/19/2024 Resolved Ambulatory Problems Diagnosis Date Noted No Resolved Ambulatory Problems Past Medical History: Diagnosis Date Amenorrhea d/t oral contraceptive pills John San infection Headache History of menstrual cramps Varicella zoster Visual impairment HISTORY PAST MEDICAL HISTORY SOCIAL HISTORY Past Medical History: Diagnosis Date Amenorrhea d/t oral contraceptive pills Endometriosis John San infection Headache History of menstrual cramps severe Hypertension (CMS/HCC) x1 Varicella zoster unsure Visual impairment w/ corrective lenses Social History Tobacco Use Smoking status: Never Smokeless tobacco: Never Substance Use Topics Alcohol use: Never Comment: caffeine: 1-2 cups per day, coffee and pop Drug use: Never FAMILY HISTORY Family History Problem Relation Name Age of Onset Hypertension Mother tracie Colon cancer Father Anemia Father Breast cancer Maternal Grandmother Hypertension Maternal Grandfather sachin Cancer Maternal Grandfather sachin Colon cancer Paternal Grandfather SURGICAL HISTORY Past Surgical History: Procedure Laterality Date APPENDECTOMY 05/2016 at [facility] DILATION AND CURETTAGE 12/2022 retained placenta DISTAL CLAVICLE EXCISION Right 07/2018 Shoulder - open - DAP LAPAROSCOPY DIAGNOSTIC / BIOPSY / ASPIRATION / LYSIS 02/2019 endometriosis, 2020 LAPAROSCOPY DIAGNOSTIC / BIOPSY / ASPIRATION / LYSIS 02/29/2024 SHOULDER SURGERY Right open distal clavicle excision-DAP VAGINAL DELIVERY 11/2022 REVIEW OF SYSTEMS Review of Systems: Review of Systems Constitutional: Negative. HENT: Negative. Eyes: Negative. Respiratory: Negative. Cardiovascular: Negative. Gastrointestinal: Negative. Genitourinary: Negative. Musculoskeletal: Negative. Skin: Negative. Neurological: Negative. All other systems reviewed and are negative. Hematological: Negative. Endocrine: Negative. Allergic/Immunologic: Negative. OBJECTIVE Objective: Physical Exam Constitutional: Appearance: Normal appearance. She is well-developed. Genitourinary: Vulva normal. Right Adnexa: not tender and no mass present. Left Adnexa: not tender and no mass present. No cervical discharge. Breasts: Breasts are soft. Right: Normal. Left: Normal. HENT: Head: Normocephalic. Nose: Nose normal. Mouth/Throat: Mouth: Mucous membranes are moist. Cardiovascular: Rate and Rhythm: Normal rate and regular rhythm. Pulmonary: Effort: Pulmonary effort is normal. Breath sounds: Normal breath sounds. Abdominal: General: Bowel sounds are normal. There is no distension. Palpations: Abdomen is soft. Tenderness: There is no abdominal tenderness. There is no guarding or rebound. Musculoskeletal: General: No swelling. Normal range of motion. Cervical back: Normal range of motion. Right lower leg: No edema. Left lower leg: No edema. Neurological: General: No focal deficit present. Mental Status: She is alert and oriented to person, place, and time. Skin: General: Skin is warm and dry. Psychiatric: Mood and Affect: Mood normal. Behavior: Behavior normal. Vitals and nursing note reviewed. Exam conducted with a precision farming specialist present. Vitals: Estimated body mass index is 25.97 kg/m as calculated from the following: Height as of 02/19/24: 5' 2 . Weight as of this encounter: 142 lb. BP: 112/70 Patient's last menstrual period was 07/11/2024. ASSESSMENT & PLAN ICD-10-CM 1. Well woman exam with routine gynecological exam Z01.419 Pap Smear Annual Exam: Patient presents today for an annual exam. Patient states she is doing well and has no complaints. Pap was obtained without difficulty. Follow Up: Patient is to return in one year for annual unless needed otherwise. Documented by Virgen Steen LPN on behalf of: Zenobia Gutierrez PA-C documented in this encounter [facility] 07-22-2024 History of Presen t illness Narrative Reason for Appointment: Patient ID: Driss Cope is a 29 y.o. female who presents for Dysmenorrhea Patient presents today for Acute Visit. MEDICATIONS Current Outpatient Medications Medication Instructions tudrlzxjud-ewnyvponnspqy-kpzuln ne 50-325-40 MG tablet 1 tablet, Oral, Every 6 hours PRN levonorgestrel-ethinyl estradiol (Jolessa) 0.15-0.03 MG tablet 1 tablet, Oral, Every morning metoprolol succinate XL (Toprol-XL) 25 MG 24 hr tablet Take 1 tablet by mouth daily ALLERGIES No Known Allergies PROBLEMS Active Ambulatory Problems Diagnosis Date Noted Acquired equinus deformity of foot 03/29/2023 Displacement of cervical intervertebral disc without myelopathy 03/29/2023 Dysmenorrhea 03/29/2023 Endometriosis 03/29/2023 Gastroparesis 03/29/2023 Hypertension ([facility]/HCC) 03/29/2023 Intractable migraine without aura and with status migrainosus ([facility]/HCC) 03/29/2023 Migraines ([facility]/HCC) 03/29/2023 Chronic pelvic pain in female 03/29/2023 Pain in female genitalia on intercourse 03/29/2023 Pain on swallowing 03/29/2023 Panic disorder (CMS/HCC) 03/29/2023 Patellofemoral disorders, left knee 03/29/2023 Patellofemoral disorders, right knee 03/29/2023 Posterior calcaneal exostosis 03/29/2023 Scapular dyskinesis 03/29/2023 Scoliosis 03/29/2023 Seasonal allergic rhinitis due to pollen 03/29/2023 Tachycardia, paroxysmal ([facility]/HCC) 03/29/2023 Tension headache 03/29/2023 Vitamin B12 deficiency 03/29/2023 Vitamin D deficiency 03/29/2023 Other chronic pain 03/29/2023 Tachycardia 02/19/2024 Obesity (BMI 30-39.9) 02/19/2024 Resolved Ambulatory Problems Diagnosis Date Noted No Resolved Ambulatory Problems Past Medical History: Diagnosis Date Amenorrhea d/t oral contraceptive pills John San infection Headache History of menstrual cramps Varicella zoster Visual impairment HISTORY PAST MEDICAL HISTORY SOCIAL HISTORY Past Medical History: Diagnosis Date Amenorrhea d/t oral contraceptive pills Endometriosis John San infection Headache History of menstrual cramps severe Hypertension (CMS/HCC) x1 Varicella zoster unsure Visual impairment w/ corrective lenses Social History Tobacco Use Smoking status: Never Smokeless tobacco: Never Substance Use Topics Alcohol use: Never Comment: caffeine: 1-2 cups per day, coffee and pop Drug use: Never FAMILY HISTORY Family History Problem Relation Name Age of Onset Hypertension Mother tracie Colon cancer Father Anemia Father Breast cancer Maternal Grandmother Hypertension Maternal Grandfather sachin Cancer Maternal Grandfather sachin Colon cancer Paternal Grandfather SURGICAL HISTORY Past Surgical History: Procedure Laterality Date APPENDECTOMY 05/2016 at [facility] DILATION AND CURETTAGE 12/2022 retained placenta DISTAL CLAVICLE EXCISION Right 07/2018 Shoulder - open - DAP LAPAROSCOPY DIAGNOSTIC / BIOPSY / ASPIRATION / LYSIS 02/2019 endometriosis, 2020 LAPAROSCOPY DIAGNOSTIC / BIOPSY / ASPIRATION / LYSIS 02/29/2024 SHOULDER SURGERY Right open distal clavicle excision-DAP VAGINAL DELIVERY 11/2022 REVIEW OF SYSTEMS Review of Systems: Review of Systems Constitutional: Negative. HENT: Negative. Eyes: Negative. Respiratory: Negative. Cardiovascular: Negative. Gastrointestinal: Negative. Genitourinary: Negative. Musculoskeletal: Negative. Skin: Negative. Neurological: Negative. All other systems reviewed and are negative. Hematological: Negative. Endocrine: Negative. Allergic/Immunologic: Negative. OBJECTIVE Objective: Physical Exam Constitutional: Appearance: Normal appearance. She [...] nursing note reviewed. Exam conducted with a precision farming specialist present. Vitals: Estimated body mass index is 25.39 kg/m as calculated from the following: Height as of 02/19/24: 5' 2 . Weight as of this encounter: 138 lb 12.8 oz. BP: 122/72 Patient's last menstrual period was 07/11/2024. ASSESSMENT & PLAN ICD-10-CM 1. Dysmenorrhea, unspecified N94.6 Pt has complaints of pain and dysmenorrhea. Pt currently on Jolessa, has had breakthrough bleeding and more emotional with this. Discussed switching off control - rx for apri faxed to pharmacy. Pt advised to skip sugar pills. Pt to return for annual. Pt given ultrasound to have obtained. Documented by Christine Ravi LPN on behalf of: Nathan Pop DO documented in this encounter [facility] 04-29-2024 Telephone encounter Note Received message from admin Anna Webb to cancel surgery and all appts as pt had services elsewhere [facility] 04-29-2024 Miscellaneous Notes Received message from admin Anna Webb to cancel surgery and all appts as pt had services elsewhere documented in this encounter [facility] 04-25-2024 Telephone encounter Note 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 Please cancel surgery and all pre and post op appts. 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 Please cancel surgery and all pre and post op appts. documented in this encounter [facility] 01-10-2024 History of Presen t illness [...] migraine without aura and with status migrainosus ([facility]) 03/29/2023 Migraines ([facility]) 03/29/2023 Chronic pelvic pain in female 03/29/2023 Pain in female genitalia on intercourse 03/29/2023 Pain on swallowing 03/29/2023 Panic disorder ([facility]) 03/29/2023 Patellofemoral disorders, left knee 03/29/2023 Patellofemoral disorders, right knee 03/29/2023 Posterior calcaneal exostosis 03/29/2023 Scapular dyskinesis 03/29/2023 Scoliosis 03/29/2023 Seasonal allergic rhinitis due to pollen 03/29/2023 Tachycardia, paroxysmal ([facility]) 03/29/2023 Tension headache 03/29/2023 Vitamin B12 deficiency [...] History: Procedure Laterality Date APPENDECTOMY 05/2016 at [facility] DILATION AND CURETTAGE 12/2022 retained placenta DISTAL [...] nursing note reviewed. Exam conducted with a precision farming specialist present. Vitals: Estimated body mass index is 28.17 kg/m as calculated from the following: Height as of 23: 5' 2 . Weight as of this [...] Nathan Pop DO documented in this encounter [facility] 01-03-2024 Miscellaneous Notes Refill(s) request: Requested [...] mg tablet Class: Normal Route: ORAL Order: [id number] E-Prescribing Status: Receipt confirmed by pharmacy (05/17/2023 [...] that may recur and often requires a correction treatment plan. Once endometriosis is identified, there [...] Department Center 05/20/2024 10:00 AM Kevin Pires Library Customer Service Clerk Nurse [facility] 06/23/2024 10:30 AM [facility] Appointment scheduled: As listed above Action taken: Refill request routed to clinician Pippa Simon RN January 03, 2024 4:29 PM Patient: Driss Cope : 1995 Provider: Charlene Rodriguez DO Caller Phone #: [phone] (home) [phone] (cell) Reason for call: b/c refill Message routed to nurse triage Date of next visit: MEGAN: 12/10/2023 documented in this encounter [facility] 12-10-2023 Note HNO ID: [id number] Author: CHARLENE RODRIGUEZ DO Service: ? 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 [facility] 09-12-2023 Hospital Discharg e instructions Patient [...] Follow these instructions at home: Medicines Take yvqd-zqo-sojuwpw and prescription medicines only as told by [...] buy a blood pressure monitor at most [employer] or online. Where to find more information [employer] [employer]: www.heart.org Contact a health care [...] provider. Document Revised: 07/27/2022 Document Reviewed: 07/27/2022 [employer] Patient Education 2022 [employer]. 09/12/2023 18:18:13 Hypertension, Adult, Cais-eb-Btpu Hypertension, Adult Hypertension is another name for [...] doctor. Keep all follow-up visits. Medicines Take cdvo-pkv-zwagdzf and prescription medicines only as told by [...] provider. Document Revised: 08/31/2022 Document Reviewed: 08/31/2022 [employer] Patient Education 2022 [employer] 09/12/2023 18:18:13 General Headache Without Cause, Dmpn-ek-Riwd General Headache Without Cause A headache is pain or discomfort you feel around the head or neck area. There are many causes and types of headaches. In some cases, the cause may not be found. Follow these instructions at home: Watch your condition for any changes. Let your doctor know about them. Take these steps to help with your condition: Managing pain Take evfl-oqc-eydzvxz and prescription medicines only as told by [...] provider. Document Revised: 04/12/2022 Document Reviewed: 04/12/2022 [employer] Patient Education 2022 [employer]. Follow Up Care 09/12/2023 17:21:57 With:CRUZ RODRÍGUEZ Address: [place] [address] Business (1) When:09/15/2023 18:03:37 Comments:Follow-up with your primary care provider in 3 to 5 days. If symptoms worsen, do not improve, or new symptoms arise please report back to emergency department for further evaluation. [facility] 09-12-2023 Evaluation + Plan note Extrac [...] date 09/12/23 18:02:00 EDT, 09/12/23 18:02:00 EDT [facility]10-16-2023 Instructions* Patient Instructions* Srinivasa Downs APRN.CNP - 09/10/2023 9:52 AM EDT Plan: Trial baclofen suppositories - can switch to pill vaginally if suppositories are not affordable Consider Pelvic floor physical therapy - can find local provider [email or web address] Consider going back to see Dr Kuldip Downs APRN.CNP [facility] NoteHNO ID: [id number] Author: Charlene Rodriguez DO Service: ? Author Type: Physician Type: Progress Notes Filed: 08/30/2023 11:15 AM Note Text: Tramadol rx sent to pharmacy.[facility]10-05-2023 History of Present illness Narrative* Charlene Rodriguez DO - 08/30/2023 11:13 AM EDT Tramadol rx sent to pharmacy. [facility] [facility] Miscellaneous Notes* Telephone Encounter - Chelsie [...] plan. Charlene Rodriguez DO documented in this encounterOhiohealth Doctors Hospital09-29-2023 NoteHNO ID: [id number] Author: Reaper, Srinivasa, FINANCIAL RETIREMENT PLAN SPECIALIST.RECORDING CLERK Service: ? Author Type: Nurse Practitioner Type: Progress Notes Filed: 09/10/2023 9:53 AM Note Text: [facility] Department of Benign Gynecology [facility] PATIENT NAME: Driss Cope DATE: 08/24/2023 Patient Name and verified: Yes Patient Location: [place] This Virtual Visit was completed using My Chart Zoom platform. I have communicated my name and active licensure. The patient's identity and physical location were verified at the time of this visit. Either the patient or their legal sales representative business courses has been informed of the risks and [...] appointment yet. GI - constipation is improved [facility] - hasn't tried due to pain and [...] physical therapy - or can go locally [facility] Trial flexeril at bedtime Can consider Baclofen suppositories Continue Norethindrone - can take up to 3 months for it to stop periods, take at same time every day Relaxation techniques Srinivasa Downs APRN.RECORDING CLERK OB History T0 L1 SAB0 IAB0 Ectopic0 Multiple0 Live Births0 Library Customer Service Clerk History LMP: 07/08/2023 (Exact Date), Having periods Age at Menarche: 14 Age at First : 27 Age at Menopause: Library Customer Service Clerk History Comments: Sexual Activity: Never; No partner [...] toxic appearing HEENT nor (more content not included)...[facility]09-29-2023 History of Present illness Narrative* Srinivasa Downs APRN.ANA LAURA - 08/24/2023 9:24 AM EDT Images from the original note were not included. [facility] Department of Benign Gynecology [facility] PATIENT NAME: Driss Cope DATE: 08/24/2023 Patient Name and verified: Yes Patient Location: [place] This Virtual Visit was completed using My Chart Zoom platform. I have communicated my name and active licensure. The patient's identity and physical location wereverified at the time of this visit. Either the patient or their legal sales representative business courses has been informed of the risks and [...] appointment yet. GI - constipation is improved [facility] - hasn't tried due to pain and [...] physical therapy - or can go locally [facility] Trial flexeril at bedtime Can consider Baclofen suppositories Continue Norethindrone - can take up to 3 months for it to stop periods, take at same time every day Relaxation techniques Srinivasa Downs APRN.CNP OB History T0 L1 SAB0 IAB0 Ectopic0 Multiple0 Live Births0 Library Customer Service Clerk History LMP: 07/08/2023 (Exact Date), Having periods Age at Menarche: 14 Age at First : 27 Age at Menopause: Library Customer Service Clerk History Comments: Sexual Activity: Never; No partner [...] back to see Dr Rodriguez SIGNATURE: Srinivasa Dwons APRN.CNP Medical Decision Making: Problems: Low: Stable chronic illness Risk: Moderate: Drug management Medical Decision Making Level: 3 - Low documented in this encounterOhiohealth Doctors Hospital09-22-2023 Miscellaneous Notes* Telephone Encounter - Marilee [...] Provider: Charlene Rodriguez DO Caller Phone #: [phone] (home) [phone] (cell) Reason for call: pt calling regarding message., still in pain. Please call [phone] Message routed to nurse triage Date of next visit: documented in this encounterOhiohealth Doctors Hospital09-07-2023 Miscellaneous Notes* Telephone Encounter - Christa Suárez RN - 08/02/2023 11:29 AM EDT PA for orilissa completed via Cover MyMeds. Driss Cope (Morales: [id number]) - [id number] Orilissa 150MG tablets Status: Sent To Plan Created: August 02, 2023 Sent: August 02, 2023 Christa Suárez, RN * Telephone Encounter - Lesley Lynn [...] too. Please advise. Thanks. documented in this encounterOhiohealth Doctors Hospital08-21-2023 NoteHNO ID: [id number] Author: Charlene Rodriguez, DO Service: ? 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 Author Type: Claims Customer Service Representative Type: Progress Notes Filed: 06/12/2023 4:32 PM [...] BY: RT Claudia(R) June 12, 2023 4:32 [facility]07-18-2023 NoteHNO ID: [id number] Author: Boo Singh RN Service: Nursing Author [...] DATE: June 12, 2023 TIME: 1:43 [facility]06-22-2023 NoteHNO ID: [id number] Author: Charlene Rodriguez, DO Service: ? 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 Charlene Rodriguez DO Tt: 20 minutesC[facility]06-[facility]23 History of Present illness Narrative* Charlene Rodriguez DO - 05/17/2023 1:05 PM EDT Images from the original note were not included. 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 Biggest complaint is cramping. Has had 3 periods of bleeding recently - 04/22/2023 LMP, last a few days, 05/04-05/10 bleeding again 05/11/2023 started again today. Takes aygestin 5mg daily. She did not corn picker flexeril. Encourage to corn picker the flexeril as this will help with the cramping. Reviewed red flag bleeding symptoms that require trip to ER (soaking greater than one overnight padper hour, chest pain, shortness of breath, fatigue, palpitations).. Advised keep appt. Gives verbal understanding. Appointments for Next 60 Days Date Time Provider Location Dept Phone 05/17/2023 1:00 PM CHARLENE RODRIGUEZC Stro [phone] Christa Suárez, RN * Telephone Encounter - [place]awana Nair [facility] [place]11/2023 1:19 PM EDT Reason for call: other - Vaginal bleeding Provider name: Dr Rodriguez Additional comments: patient having more vaginal bleeding and concerned she is getting worse. Recommendation: routed to nurse triage pool documented in this encounterOhiohealth Doctors Hospital06-06-2023 Instructions* Patient Instructions* Srinivasa Downs APRN.CNP - 05/01/2023 11:47 AM EDT Plan Pelvic floor physical therapy - or can go locally [employer] Trial flexeril at bedtime Can consider Baclofen [...] pelvic pain society ([email or web address].org) documented in this encounterOhiohealth Doctors Hospital06-06-2023 History of Present illness Narrative* Srinivasa Downs APRN.CNP - 05/01/2023 10:30 AM EDT Driss Cope is a 28 year old female who presents for problem visit for pain HPI: Pain is week before period and week of period. Worse on her period for every day she's bleeding Urinary - No symptoms GI - Always constipated. 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 Author Type: Nurse Practitioner Type: Progress Notes Filed: 05/09/2023 11:46 AM Note Text: Driss Cope is a 28 year old female who presents for problem visit for pain HPI: Pain is week before period and week of period. Worse on her period for every day she's bleeding Urinary - No symptoms GI - Always constipated. No meds [facility] - painful always Pain is on left [...] L0 SAB0 IAB0 Ectopic0 Multiple0 Live Births0 Library Customer Service Clerk History LMP: 03/26/2023 (Approximate), Having periods Age at Menarche: Age at First : Age at Menopause: Library Customer Service Clerk History Comments: Sexual Activity: Never; No partner data on record Contraception: Pill PAST MEDICAL HISTORY Diagnosis Date - HTN (hypertension) - PONV (postoperative nausea and vomiting) PAST SURGICAL HISTORY Procedure Laterality Date - APPENDECTOMY 2016 - COLONOSCOPY - COLONOSCOPY 10/25/2020 repeat 5 [...] time every day Relaxation techniques Srinivasa Downs APRN.RECORDING CLERK Medical Decision Making: Problems: Moderate: New problem with uncertain prognosis Data: Unique source(s) for external note(s) reviewed: 1 Unique test result(s) reviewed: 1 Risk: Moderate: Drug management Medical Decision Making Level: 4 - ModerateC[facility]05-31-2023 Miscellaneous Notes* Telephone Encounter - Marilee [...] or permanent skin changes. Marilee Valdez APRN.ANA LAUAR April 25, 2023 3:49 PM * Telephone [...] months. Lucila Foss RN documented in this encounterOhiohealth Doctors Hospital03-08-2023 Hospital Discharge instructions Patient Education 01/31/2023 [...] told by your health care provider. Take krss-aeq-acrwkah and prescription medicines only as told by [...] 01/03/2007 Document Revised: 10/25/2018 Document Reviewed: 01/25/2018 [employer] Patient Education 2020 [employer]. Follow Up Care 01/31/2023 13:43:01 With:Cruz Meza Address:Unknown When:02/03/2023 18:59:31 Comments:Follow-up for evaluation of hypertension in context of known preeclampsia in the period With:CRUZ RODRÍGUEZ Address: [address] [place] [address]- Business (1) When:Within 3 Day(s) [facility]03-08-2023 Evaluation + Plan noteExtracted from: Title:ED Note Author:Mayur Mabry PA-C e:01/31/23 Flank pain (R10.9: Unspecifi ed abdominal pain) Headache (R51.9: Headache, unspecified) Orders: CTA Chest Hepatic Function Panel [facility]02-04-2023 Hospital Discharge instructions Patient Education 12/30/2022 13:59:51 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 - Post D&C, Hysteroscopy, LEEP or [...] Instructions - FT (Custom) (Custom) 12/30/2022 13:55:16 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 - Post D&C, Hysteroscopy, LEEP or [...] Up Care 12/30/2022 08:14:12 With:Cruz Meza Address: [address], [address] [address] Business (1) When: Unknown Comments:follow up in 1-2 weeks With:CRUZ RODRÍGUEZ Address: [address] [place] [address]- Business (1) When:01/02/2023 09:21:18 [facility]02-04-2023 Evaluation + Plan noteExtracted from: Title:ANES [...] Pre-operative Note Author:Bryant Agustin MD Date:12/30/22 Plan [place] [employer] Anesthesiologists (ASA) physical status classification: [...] With Cult Reflex US Pelvis Non-OB Complete [facility]01-10-2023 History of Present illness Narrative* Tory Pimentel - 12/05/2022 1:35 PM EST Vital signs BP 127/87 Weight 149.2lb Pulse 106 Temp 96.7 * Tonia Diallo DO - 12/05/2022 1:35 PM EST Images from the original note were not included. Driss Cope 12/05/2022 27 y.o. Chief Complaint [...] 4 weeks (around 01/02/2023) for Visit . Associated attestation - Opal Ross MD - 12/05/2022 3:19 PM EST [facility]: This patient was seen in the [facility] by the resident. I reviewed and agree with the care provided by the resident during or immediately following the visit including the patient's medical history, the resident's finding in the physical exam, patient's diagnosis and treatment plan. documented in this [facility]01-07-2023 NoteDepartment of Obstetrics and Gynecology Delivery Discharge Summary Admission on 11/28/2022 12:24 AM Hospital course: Driss Cope at 35w1d admitted as a transfer from [facility] for PreEwSF. She was started on [...] Information for the patient's : Francie Cope [[id number]] female 2425 g (5 lb 5.5 oz) Apgars: Information for the patient's : Francie Cope [[id number]] : Infant: Girl Blood Type/Rh: O Antibody Screen: No [...] Your Medications These medications were sent to [facility] [address] [place] [address] Hours: Sunday to Sunday 10 am to 6 pm docusate sodium 100 MG capsule ibuprofen 600 MG tablet NIFEdipine XL 30 MG 24 hr tablet Activity: Activity as tolerated Diet: Regular diet Follow-up Appointments: - visit - Blood pressure check If a patient meets criteria for hypertension, make sure the following are done prior to discharge: [] Order a blood pressure kit through [facility] (or the patient's own pharmacy on the weekend) [] Order the blood pressure log through Plurchase [x] Place an office visit or telephone [...] notify her physician if any of these occur.[facility]01-07-2023 History of Present illness Narrative* Anna Booth RN - 12/02/2022 1:41 PM EST Late entry due to patient care. Resident Lacy notified of B.P 138/96 heart rate 119 around 1236 see flowsheet. Also notified checked in 1 hour via orders and B.P 143/87 pulse 111. Clarified if should check in 1 hour according to orders. . Also notified patient has discharge order in. Resident Lacy states No on rechecking. Ok to discharge. Will make patient aware. * Vanessa Vale DO - 12/02/2022 5:09 AM EST Images from the original note were not included. VAGINAL DELIVERY POST DAY # 2 Driss [...] Resp: 18 18 16 16 Temp: 36.8 C (98.3 F) 37.4 C (99.4 F) 36.9 C (98.4 F) 36.1 C (97 F) TempSrc: Temporal Temporal Temporal Temporal SpO2: 98% [...] DO Vanessa Zambrano DO 12/02/2022, 5:09 AM * Chelsi Bernal PA-C - 12/01/2022 5:31 AM EST Images from the original note were not included. NOTE - VAGINAL DELIVERY POST DAY #1 Driss Cope, 27 y.o. This patient was seen & examined today. Her was complicated by: Patient Active Problem List Diagnosis Preeclampsia, severe, third trimester Today she is doing well without any chief complaint. Her lochia is light. She denies chest pain, shortness of breath, headache, blurred vision, and RUQ pain. She is ambulating well. She is toleratingsolids. She was not able to void after delivery and required straight cath'd x2. Again was not ableto void and therefore chauhan catheter was placed, still in place this AM. Vital Signs: Vitals: 11/30/22 1512 11/30/22 1932 11/30/22 2302 12/01/22 0308 BP: (!) 125/90 138/84 131/80 125/79 BP Location: Right arm Right arm Patient Position: Sitting Lying Pulse: 98 110 92 94 Resp: 17 16 16 Temp: 37.4 C (99.4 F) 37.6 C (99.6 F) 37.2 C (99 F) TempSrc: Temporal Temporal Temporal SpO2: 96% 95% [...] wheelchair) if she so chooses. Provider's Name: Ritu RyderDO TONIA lobo DO 12/01/2022, 5:32 AM Attestation Statement I saw and evaluated the patient. I agree with the findings and plans of the resident physician, andagree as documented in her note. Doing well PPD#1, chauhan catheter still in place for urinary retention - plan to remove today and re-attempt spontaneous void. Blood pressures stable on Procardia 30XL, continue to monitor. Consider discharge tomorrow if blood pressures remain controlled and urinary retention resolved. I spent 15 minutes in the visit, with more than 50% of the total auge-jj-kyqc time of the visit in counseling/coordination of care. , 9:22 AM * Alejandra Arcos RN - 11/30/2022 5:56 PM EST Chauhan catheter inserted by Andi Bacon RN, catheter drained and emptied for 900cc. Catheter secured to leg. * Alejandra Arcos RN - 11/30/2022 5:20 PM EST Patient up to bathroom but remains unable to void. Bladder scan completed and reads >570. Sent secure message to Dr. Ruiz letting her know the above. Instructed to place chauhan catheter. * Alejandra Arcos RN - 11/30/2022 4:25 PM EST Secure message sent to Dr. Gamez stating patient is having difficulty voiding, patient's perineum is very swollen, and that patient was straight cathed for 950ml at noon. Received order for benadryl to help with swelling. * Suad Samuels - 11/30/2022 12:26 PM EST Nutrition rescreen completed. Chart reviewed. Patient to be monitored and followed by the diet machine operator slitter technician. Suad Samuels DT * Alejandra Arcos RN - 11/30/2022 11:30 AM EST Patient unable to void, last straight cathed at 0400. Bladder scan obtained for >928 ml, fundus +2 and shifted to right. Patient straight cathed on attempt x2 by Andi Bacon RN for 950cc. Will continue to monitor. * Irina Kramer DO - 11/28/2022 2:14 AM EST Images from the original note were not included. Labor Progress Note Date: 11/28/2022 Time: 2:14 AM [...] time. FHT cat I and reassuring. CCM. Cx:-3 FHT: Cat 1 [place]:q3-4 min A/P: 1. IOL-PreEwSF. FHT 130 baseline, with moderate variability, Accelerations present Yes, and rare late deceleration . Cervical exam unchanged. Cytotec x4 placed at this time. Patient intermittently feeling contractions. BP mild range. Cx: 1--3 FHP: defer FHT: Cat I [place]: a3-4min A/P: 1. IOL-PreEwSF: FHT Category I, with modertae variability, accelerations present, and decelerations absent. BP NT largely throughout today, most recently mild range. UOP has not been documented today, day nurse did not document. Discussed with night nurse. Magnesium running for seizure prophylaxis. 2nd dose of BMZ received. Dr Keita updated. PRNICE BRADY DO 11/28/2022 7:43 PM Cx: unchanged FHP: defer FHT: Cat I [place]: q4min A/P: 1. IOL-PreEwSF: FHT Category I, [...] after. PRINCE BRADY DO 11/29/2022 6:17 AM Cx:1-/-3 FHT: Cat I [place]:q4-5mins A/P: 1. IOL-PreEwSF: Cat I FHT with [...] per protocol. CCM. Cx:defer FHT: Cat I [place]:q4-6mins A/P: 1. IOL-PreEwSF: Cat I FHT with baseline 120, moderate variability, spontaneous accelerations, and no decelerations. BP normotensive to mild range since last note time. Pitocin @ 2 cc/hr, continue to titrate per protocol. Magnesium sulfate running for seizure prophylaxis, UOP 400 ml over past 4hours. CCM. Cx:defer FHT: Cat I [place]:q4-5mins A/P: 1. IOL-PreEwSF: Cat I FHT with baseline 135, moderate variability, spontaneous accelerations, and no decelerations. BP normotensive to mild range since last note time. Pitocin @ 6 cc/hr, continue to titrate per protocol. Magnesium sulfate running for seizure prophylaxis, UOP 600 ml over past 4hours. Will plan for AROM soon. CCM. Cx:defer FHT: Cat I [place]:irritability A/P: 1. IOL-PreEwSF: Pit @ 8 mu/min. Patient resting comfortably and only irritability tracing on toco. BP most recently mild range. On magnesium sulfate for seizure prophylaxis. UOP adequate. Continue magnesium and continue to titrate pitocin per protocol. Plan for AROM once patient rudi more regularly. Electronically signed by Cortney Velasquez DO 11/29/2022 4:21 PM Cx:470/-3 FHT: Cat 1 [place]:Not tracing A/P: 1. IOL-PreEwSF. FHT 135 baseline, with moderate variability, Accelerations present Yes, and nodecelerations seen . AROM at this time for moderate amount blood tinged fluid. Pitocin at 8cc/hr. Maternal BP mild range. On Magnesium for Seizure prophylaxis. Patient with adequate urinary output. CCM. Cx: defer FHP: defer FHT: Cat II [place]: not tracing well A/P: 1. IOL-PreEwSF: FHT Category II for brief period of lates vs early deceleration prior to epidural placement, with moderate variability, accelerations present, and decelerations present. Blood pressure NT. Pit @ 8 ml/hr. Just got epidural placed. Plan for eventual SVE and possible IUPC placement if unchanged. PRINCE BRADY DO 11/29/2022 6:45 PM Cx: 80/-1 per RN FHP: defer FHT: Cat II [place]: q4min A/P: 1. IOL-PreEwSF: FHT Category II for periods of minimal variability likely due to magnesium,accelerations present, and decelerations absent. Blood pressure mild. Magensium sulfate running for seizure prophylaxis. Will plan for SVE soon to assess for adequate labor progression. PRINCE BRADY DO 11/29/2022 9:58 PM Patient complete and +1. Dr Bowden updated and on her way into the hospital. PRINCE BRADY DO 11/29/2022 10:[address] Bowden noted that she still had anterior lip. Continued to allow her more time. Now into room 10/100/+2. Started pushing at this time. Cat I with mod variability. BP normotensive to mild range. Pit at 14 ml/hr. Will continue to monitor while she pushes. Cassie Constantino MD 11/30/2022 1:09 AM 1/5 See delivery note for details documented in this [facility]01-07-[facility] Hospital course Narrative* César Geraldo DO [place] - 12/02/2022 12:32 PM EST Images from the original note were not included. Department of Obstetrics and Gynecology Delivery Discharge Summary Admission on 11/28/2022 12:24 AM Hospital course: Driss Cope at 35w1d admitted as a transfer from [facility] for [facility]. She was startedon Magnesium there and transported here for delivery. [...] Information for the patient's : Francie Cope [[id number]] female 2425 g (5 lb 5.5 oz) Apgars: Information for the patient's : Francie Cope [[id number]] : Infant: Girl Blood Type/Rh: O Antibody Screen: No [...] as needed for constipation (Vaginal Delivery) for upto 10 days. ibuprofen 600 MG tablet Take [...] Your Medications These medications were sent to [facility] [address] [place] [id number] Hours: Sunday to Sunday 10 am to 6 pm docusate sodium 100 MG capsule ibuprofen 600 MG tablet NIFEdipine XL 30 MG 24 hr tablet Activity: Activity as tolerated Diet: Regular diet Follow-up Appointments: - visit - Blood pressure check If a patient meets criteria for hypertension, make sure the following are done prior to discharge: [] Order a blood pressure kit through [facility] (or the patient's own pharmacy on the weekend) [] Order the blood pressure log through Plurchase [x] Place an office visit or telephone [...] notify her physician if any of these occur. documented in this [facility]01-06-2023 Note* Care Coordination - Christine Michelle RN - 12/01/2022 10:53 AM EST 27 year old admitted for induction of [...] surface and your baby should not sleep inan adult bed, on a couch or chair. Keep soft objects, toys and loose bedding out of your baby's sleep area. Reviewed post depression. It is common to have blues. This is a normal response to many of the hormonal changes, stress and lack of sleep that go with raising a and p hysically recovering from the . Don't hesitate to [...] home. Denies any concerns at this time. [facility] [id number] Note* Care Coordination - Christine Michelle RN - 12/01/2022 10:53 AM EST 27 year old admitted for induction of [...] surface and your baby should not sleep inan adult bed, on a couch or chair. Keep soft objects, toys and loose bedding out of your baby's sleep area. Reviewed post depression. It is common to have blues. This is a normal response to many of the hormonal changes, stress and lack of sleep that go with raising a and p hysically recovering from the . Don't hesitate to [...] home. Denies any concerns at this time. curated.by [facility] [id number] Miscellaneous Notes* Care Coordination - Christine Michelle RN - 12/01/2022 10:53 AM EST 27 year old admitted for induction of [...] surface and your baby should not sleep inan adult bed, on a couch or chair. Keep soft objects, toys and loose bedding out of your baby's sleep area. Reviewed post depression. It is common to have blues. This is a normal response to many of the hormonal changes, stress and lack of sleep that go with raising a and p hysically recovering from the . Don't hesitate to [...] home. Denies any concerns at this time. * Note - Ligia Bridges RN - 12/01/2022 9:00 AM EST 22.5mm flanges given to patient. Encouraged her to call for observation of pump session and smallerflanges. Martha in NICU to assist with personal pump. * Note - Sheila Harrell RN - 11/30/2022 10:37 AM EST Swabs given to patient and educated how to use and to bring to infant CRISTIAN * Note - Sheila Harrell RN - 11/30/2022 10:30 AM EST Breast pump use indicated for this pt. Due to: in [facility] breast pump, supplies kit, swabs and [...] label swabs/syringes. Breast milk storage guidelines reviewed. C leaning of pump parts reviewed and basin, soap [...] home pump Told patient to check with LC in [facility] for smaller flange sizes * L&D Delivery Note - Irina Kramer DO - 11/30/2022 4:04 AM EST Images from the original note were not included. Vaginal Delivery Note Department of Obstetrics and Gynecology Patient: Driss Cope : 1995 Date of delivery: 11/30/2022 Pre-operative Diagnosis: Driss Cope at 35w1d 1. <37 weeks 2. 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 Bowden; Dr. Kramer Infant Information: Information for the patient's : Francie Cope [[id number]] Information for the patient's : Francie Cope [[id number]] Description: normal Meconium Noted: No Anesthesia: epidural anesthesia Complications: None Application and Delivery: Driss Cope at 35w1d admitted for IOL-PreEwSF. Her labor course consisted of cytotec, 60 mlfoley bulb, pitocin, and AROM. Once complete she [...] delivery of the placenta was spontaneous and appearedintact. Pitocin was started. The vagina was swept of all clots and debris. The perineum and vagina were evaluated. 1000 mcg rectal cytotec were given for uterine tone and persistent bleeding. A 2nd degree perineal laceration was found and repaired in standard fashion with 3-0 Vicryl. A right labiallaceration was found and repaired with 4-0 vicryl. Her bleeding was controlled and uterine tone wasfirm. All counts were correct. Mother and baby [...] Rubella Immunity Status: No results found for: RUBELLAMILADYG Irina Kramer DO 11/30/2022, 4:04 AM Associated attestation - Carol Bowden MD - 12/01/2022 8:22 AM EST Procedures or Surgery: I was present for all morales elements of the procedure or surgery as described in the resident note. * Care Plan - Clotilde Mg RN - 11/29/2022 7:45 AM EST The patient will continue to make cervical change. Clotilde Mg RN documented in this [facility]01-06-2023 Obstetrics Note* Note - Ligia Bridges RN - 12/01/2022 9:00 AM EST 22.5mm flanges given to patient. Encouraged her to call for observation of pump session and smallerflanges. Martha in NICU to assist with personal pump. [place] [id number] Hospital Discharge instructions* Discharge Instructions* Carol Bowden MD - 12/01/2022 8:27 AM EST Images from the original note were not included. After Your Delivery (the Period): Your Care Instructions Congratulations on the of your baby. Like , the period can be a time of excitement, akash, and exhaustion. You may look at your wondrous little baby and feel happy. You may also be overwhelmed by your new sleep hours and new responsibilities. In these first weeks after delivery, try to take good care of yourself. It may take 4 to 6 weeks to feel like yourself again, and possibly longer if you had a . You will likely feel very tired for several weeks. Your dayswill be full of ups and downs, but lots of akash as well. FOLLOW-UP: Your follow-up care is a morales part of your treatment and safety. Follow-up with your OB doctor in 4-6 weeks or as specified by your physician. Be sure to make and go to all appointments, and call yourdoctor if you are having problems. It's also a good idea to know your test results and keep a list of the medicines you take. BLEEDING Vaginal bleeding will decrease in amount over the next few weeks but may be present for as long as 8 weeks after delivery. Bleeding may corn picker and then decrease again around 7-10 days . Use pads instead of tampons for the bloody flow that may last as long as 2 weeks. You will notice that as your activity increases, your flow may increase. Call your doctor if you are saturating one maxi pad in an hour & passing large clots for 3 hours or more. ACTIVITY NO SEXUAL activity for 6 weeks or until advised by your doctor. Nothing in the vagina for 6 weeks: e.g.) intercourse, tampons, or douching. Showering is okay; NO tub baths, swimming, or hot tubs for 6 weeks. Gradually increase your activity. Resume exercise regimen only after advice by your doctor. Avoid lifting anything heavier than your baby or a gallon of milk for six weeks. Avoid driving 1 week for vaginal delivery and 2 weeks for section, or longer if you are onprescription pain medicine unless otherwise instructed by your doctor. Rise slowly from a lying to sitting and then a standing position. Climb stairs carefully. Use caution when carrying your baby up and down the stairs. You may feel tired or have a lack of energy. Nap when baby naps to catch up on sleep. You may continue your vitamin to replenish nutrients post delivery. EMOTIONS You may feel murguia, sad, teary, & overwhelmed for the first 2 weeks ; however, feelings of post depression may occur any time within the first year after delivery. Contact your OB provider if you feel you may be showing signs of depression, or have thoughts of harming yourself or your infant. If infant will not stop crying, contact another adult for help or place infant in their crib on their back and take a break. NEVER shake your . WOUND CARE For Vaginal Delivery: Shower daily, and cleanse your perineum (bottom) with mild soap from front to Back. Use the plasticsquirt bottle until bleeding stops each time you use the restroom instead of wiping with toilet paper. Ease soreness of hemorrhoids and the area between your vagina and rectum with ice compresses or witch yesi pads. If used, stitches will dissolve in 4-6 weeks on their own. You may use a sitz bath or soak in a clean tub with drain open and water running for comfort. Kegel exercises will help restore bladder control. To do these tighten your muscles as if you were stopping your urine flow. Hold for a few seconds and then relax. Do these throughout the day. For Section Delivery: Keep your incision clean and dry. If you had steri-strips you may remove these once they start peeling off. If you have altaf they need to be removed 3-10 days after delivery. If you have steri-strips, remove after 10-14 days. Do not wear clothing that irritates the incision line. If your incision in in a crease that is not dry, use a hair-dryer to dry the area 3 times a day. If you develop fever, shaking chills, redness, swelling, drainage or discharge from your wound, or if your wound looks like it's coming apart call your doctor immediately. For Tubal Ligation: Remove dressing 3 days after being discharged from the hospital. If you develop fever, shaking chills, redness, swelling, drainage or discharge from your wound, or if your wound looks like it's coming apart call your doctor immediately. BREAST CARE If you develop a warm, red, tender area on your breast or develop a fever contact your doctor. For moms: If you become engorged, feeding may be more difficult or painful for 1-2 days. You may find it helpful to hand express some milk so that the infant can latch on more easily or ease soreness with wet, warm washcloths. While , continue to take your vitamins as directed by your doctor. For non- moms: You may apply ice packs to your breasts over you bra for twenty minutes at a time for comfort. Cabbage leaves may be applied to breasts, replace when wilted. Avoid stimulation to your breasts, when showering allow the water to strike your back not your breasts. Do not express milk or your body will make more. Wear a good fitting bra until your milk dries, such as a sports bra. DIET & CONSTIPATION Eat a well balanced diet focusing on foods high in fiber and protein such as: whole grain cereals and breads, fruits and vegetables and legumes (eg, beans, lentils) Drink 8-10 glasses of fluids daily, especially water. To avoid constipation you may take a mild kyuh-fvs-mhhafym stool softener (such as colace) as recommended by your doctor. SWELLING Try to keep your legs elevated when you are sitting or lying down. Stay hydrated and take walks. BABY Babies sleep safest on their back in a crib without bumpers, blankets or stuffed animals. DO NOT sleep with your baby in your bed or the couch. DO NOT expose baby to smoke, this can increase risks of asthma and sudden infant syndrome. Ifyou or someone around baby smokes have them change their shirt and wash any facial hair before holding baby. Do not smoke inside the house and change the ventilation filters in the house before bringing baby home. WHEN TO CALL THE DOCTOR Signs of infection, including fever (101oF) and chills. Increased bleeding: soaking more than one sanitary pad an hour. Wounds that become red, swollen or drain pus. Vaginal discharge that smells foul. Headaches that lasts several hours and will not go away even with headache medications. Visual changes that last several hours and will not go away. Significant pain immediately below your rib cage. New pain, swelling, or tenderness in your legs Pain that you can't control with the medications you've been given. Pain, burning, urgency or frequency of urination, or persistent bleeding in the urine. Cough, shortness of breath, or chest pain. Depression, suicidal thoughts, or feelings of harming your baby. Breasts that are hot, red and accompanied by fever. Any cracking or bleeding from the nipple or areola (the dark-colored area of the breast). In case of an emergency, call 911 immediately. If you are Covid-19 positive or a Person Under Investigation (PUI) Wkegfb-hl-fljpu transmission of COVID-19 during is unlikely, but after a baby is susceptible to hphiig-jc-fswtfe spread. After your baby is born, your health care provider may recommend you not hold your baby and/or thatyou stay in a separate room from your baby until you get better. If you and your baby are not , wear a facemask at all times and wash your hands thoroughlybefore touching, holding or feeding your baby. Baby Care & Feeding has many benefits for you and your baby and is the best food for your baby. From whatexperts know so far, COVID-19 has not been found in breastmilk. Having a healthy adult who can assist with baby care until you get better is important, you may want to have a healthy adult feed your baby your expressed breast milk or formula if you chose to not breastfeed. You may use a breast pump to express your breast milk. Wear a face mask, wash your breasts, then wash your hands thoroughly before touching the breast pump and bottle parts. Clean all pump parts after each use. If you choose to breastfeed from your breast, wear a face mask, wash your breasts, wash your hands thoroughly before feeding your baby. These could be signs that your COVID-19 symptoms are worsening and you may need emergency care: You are severely dizzy or lightheaded. You are confused or can't think clearly. Your face and lips have a blue color. You are unable to respond to others or are very hard to wake up. Prevention steps for People with confirmed or suspected COVID-19 (including persons under investigation) who do not need to be hospitalized AND People with confirmed COVID-19 who were hospitalized and determined to be medically stable to go home Your healthcare provider and public health staff will evaluate whe ther you can be cared for at home. If it is determined that you do not need to be hospitalized and can be isolated at home, you willbe monitored by staff from your local or state health department. You should follow the prevention steps below until a healthcare provider or local or state health department says you can return to your normal activities. Stay home except to get medical care People who are mildly ill with COVID-19 are able to isolate at home during their illness. You should restrict activities outside your home, except for getting medical care. Do not go to work, school,or public areas. Avoid using public transportation, ride-sharing, or taxis. Separate yourself from other people and animals in your home People: As much as possible, you should stay in a specific room and away from other people in your home. Also, you should use a separate bathroom, if available. Animals: You should restrict contact with pets and other animals while you are sick with COVID-19, just like you would around other people. Although there have not been reports of pets or other animals becoming sick with COVID-19, it is still recommended that people sick with COVID-19 limit contactwith animals until more information is known about the virus. When possible, have another member ofyour household care for your animals while you are sick. If you are sick with COVID-19, avoid contact with your pet, including petting, snuggling, being kissed or licked, and sharing food. If you must care for your pet or be around animals while you are sick, wash your hands before and after you interact with pets and wear a facemask. Call ahead before visiting your doctor If you have a medical appointment, call the healthcare provider and tell them that you have or may have COVID-19. This will help the healthcare provider's office take steps to keep other people from getting infected or exposed. Wear a facemask You should wear a facemask when you are around other people (e.g., sharing a room or vehicle) or pets and before you enter a healthcare provider's office. If you are not able to wear a facemask (for example, because it causes trouble breathing), then people who live with you should not stay in the same room with you, or they should wear a facemask if they enter your room. Cover your coughs and sneezes Cover your mouth and nose with a tissue when you cough or sneeze. Throw used tissues in a lined trash can. Immediately wash your hands with soap and water for at least 20 seconds or, if soap and water are not available, clean your hands with an alcohol-based hand retort unloader that contains at least 60% alcohol. Clean your hands often Wash your hands often with soap and water for at least 20 seconds, especially after blowing your nose, coughing, or sneezing; going to the bathroom; and before eating or preparing food. If soap and water are not readily available, use an alcohol-based hand retort unloader with at least 60% alcohol, covering all surfaces of your hands and rubbing them together until they feel dry. Soap and water are the best option if hands are visibly dirty. Avoid touching your eyes, nose, and mouth with unwashed hands. Avoid sharing personal household items You should not share dishes, drinking glasses, cups, eating utensils, towels, or bedding with otherpeople or pets in your home. After using these items, they should be washed thoroughly with soap and water. Clean all high-touch surfaces everyday High touch surfaces include counters, tabletops, doorknobs, bathroom fixtures, toilets, phones, keyboards, tablets, and bedside tables. Also, clean any surfaces that may have blood, stool, or body fluids on them. Use a household cleaning spray or wipe, according to the label instructions. Labels contain instructions for safe and effective use of the cleaning product including precautions you should take when applying the product, such as wearing gloves and making sure you have good ventilation during use of the product. Monitor your symptoms Seek prompt medical attention if your illness is worsening (e.g., difficulty breathing). Before seeking care, call your healthcare provider and tell them that you have, or are being evaluated for, COVID-19. Put on a facemask before you enter the facility. These steps will help the healthcare provider's office to keep other people in the office or waiting room from getting infected or exposed. Askyour healthcare provider to call the local or [facility] health department. Persons who are placed underactive monitoring or facilitated self- monitoring should follow instructions provided by their localhealth department or occupational health professionals, as appropriate. When working with your local health department check their available hours. If you have a medical emergency and need to call 911, notify the dispatch personnel that you have, or are being evaluated for COVID-19. If possible, put on a facemask before emergency medical services arrive. Discontinuing home isolation Patients with confirmed COVID-19 should remain under home isolation precautions until the risk of secondary transmission to others is thought to be low. The decision to discontinue home isolation precautions should be made on a rftf-qw-xcsk basis, in consultation with healthcare providers and [facility] health departments. Information on COVID-19 for ALL patients Call your provider before your next appointment if you develop any of the following symptoms: fever, cough, fatigue, anorexia, shortness of breath, sputum production, and muscle pains. Headache, confusion, rhinorrhea, sore throat, hemoptysis, vomiting, and diarrhea have been reported but are less common. Some persons with COVID-19 have experienced gastrointestinal symptoms such as diarrhea and nausea prior to developing fever and lower respiratory tract signs and symptoms. Ways to [place] with Anxiety & Stress It is normal to feel anxious or worried about COVID-19. You might feel sad about canceling celebrations and staying away from family and friends. Keep in mind that most people do not get severely ill from COVID-19. It is important to have a planin case you get sick to prevent spreading the disease to others including an Advanced Care Plan (communicating and documenting your desired health care plan with family and healthcare team). You can take care of yourself by: Taking a break from watching the news Take deep breaths, stretch or meditate Getting exercise, eating healthy foods, and drinking plenty of water Finding activities you can enjoy inside your home Staying in touch with your family and friends. Tell your partner, family, and friends how you are feeling. Advance Care Planning People with COVID-19 may have no symptoms, mild symptoms, such as fever, cough, and shortness of breath or they may have more severe illness, developing severe and fatal pneumonia. As a result, Advance Care Planning with attention to naming a health care decision maker (someone you trust to make healthcare decisions for you if you could not speak for yourself) and sharing other health care preferences is important BEFORE a possible health crisis. Please contact your Primary Care Provider to discuss Advance Care Planning. LEARNING ABOUT THE CORONAVIRUS (COVID-19): Coronavirus (COVID-19): Overview What is coronavirus (COVID-19)? The coronavirus disease (COVID-19) is caused by a virus. It is an illness that was first found in [facility], in October 2019. It has since spread worldwide. The virus can cause fever, cough, and trouble breathing. In severe cases, it can cause pneumonia and make it hard to breathe without help. It can cause . Coronaviruses are a large group of viruses. They cause the common cold. They also cause more serious illnesses like [place] respiratory syndrome (MERS) and severe acute respiratory syndrome (SARS). COVID-19 is caused by a novel coronavirus. That means it's a new type that has not been seen in people before. This virus spreads jmujdp-wb-qlnoae through droplets from coughing and sneezing. It can also spreadwhen you are close to someone who is infected. And it can spread when you touch something that has the virus on it, such as a doorknob or a tabletop. What can you do to protect yourself from coronavirus (COVID-19)? The best way to protect yourself from getting sick is to: Avoid areas where there is an outbreak. Avoid contact with people who may be infected. Wash your hands often with soap or alcohol-based hand sanitizers. Avoid crowds and try to stay at least 6 feet away from other people. Wash your hands often, especially after you cough or sneeze. Use soap and water, and scrub for at least 20 seconds. If soap and water aren't available, use an alcohol-based hand retort unloader. Call 911 anytime you think you may need emergency care. For example, call if: You have severe trouble breathing. (You can't talk at all.) You have constant chest pain or pressure. You are severely dizzy or lightheaded. You are confused or can't think clearly. Your face and lips have a blue color. You pass out (lose consciousness) or are very hard to wake up. Call your doctor now if you develop symptoms such as: Shortness of breath. Fever. Cough. If you need to get care, call ahead to the doctor's office for instructions before you go. Make sure you wear a face mask, if you have one, to prevent exposing other people to the virus. Where can you get the latest information? The following health organizations are tracking and studying this virus. Their websites contain themost up-to-date information. You'll also learn what to do if you think you may have been exposed tothe virus. U.S. Centers for Disease Control and Prevention (CDC): The CDC provides updated news about the disease and travel advice. The website also tells you how to prevent the spread of infection. www.cdc.gov World Health Organization (WHO): WHO offers information about the virus outbreaks. WHO also has travel advice. www.who.int Current as of: February 25, 2020 Content Version: 12.4 [employer]. Care instructions adapted under license by your healthcare professional. If you have questions about a medical condition or this instruction, always ask your healthcare professional. [employer] disclaims any warranty or liability for your use of this information. General Recommendations for Routine Cleaning and Disinfection of Households Community members can practice routine cleaning of frequently touched surfaces (for example: tables, doorknobs, light switches, handles, desks, toilets, faucets, sinks) with household machining associate and EPA-registered disinfectants that are appropriate for the surface, following label instructions. Labels contain instructions for safe and effective use of the cleaning product including precautions you should take when applying the product, such as wearing gloves and making sure you have good ventilation during use of the product. These guidelines are focused on household settings and are meant for the general public. Cleaning refers to the removal of germs, dirt, and impurities from surfaces. Cleaning does not killgerms, but by removing them, it lowers their numbers and the risk of spreading infection. Disinfecting refers to using chemicals to kill germs on surfaces. This process does not necessarilyclean dirty surfaces or remove germs, but by killing germs on a surface after cleaning, it can further lower the risk of spreading infection. General Recommendations for Cleaning and Disinfection of Households with People Isolated in Home Care - Confirmed or suspected COVID 19 Household members should educate themselves about COVID-19 symptoms and preventing the spread of COVID-19 in homes. Clean and disinfect high-touch surfaces daily in household common areas (e.g. tables, hard-backed chairs, doorknobs, light switches, remotes, handles, desks, toilets, sinks) In the bedroom/bathroom dedicated for an ill person: consider reducing cleaning frequency to as-needed (e.g., soiled items and surfaces) to avoid unnecessary contact with the ill person. As much as possible, an ill person should stay in a specific room and away from other people in their home. The caregiver can provide personal cleaning supplies for an ill person's room and bathroom, unless the room is occupied by child or another person for whom such supplies would not be appropriate. These supplies include tissues, paper towels, machining associate and EPA-registered disinfectants (see list link at CDC website). If a separate bathroom is not available, the bathroom should be cleaned and disinfected after each use by an ill person. If this is not possible, the caregiver should wait as long as practical after use by an ill person to clean and disinfect the high-touch surfaces. How to clean and disinfect: Hard Surfaces Wear disposable gloves when cleaning and disinfecting surfaces. Gloves should be discarded after each cleaning. If reusable gloves are used, those gloves should be dedicated for cleaning and disinfection of surfaces for COVID-19 and should not be used for other purposes. Consult the clubhouse manager's instructions for cleaning and disinfection products used. Clean hands immediately after gloves are removed. If surfaces are dirty, they should be cleaned using a detergent or soap and water prior to disinfection. For disinfection, diluted household bleach solutions, alcohol solutions with at least 70% alcohol, and most common EPA-registered household disinfectants should be effective. Diluted household bleach solutions can be used if appropriate for the surface. Follow clubhouse manager's instructions for application and proper ventilation. Check to ensure the product is not past its expiration date. Never mix household bleach with ammonia or any other cleanser. Unexpired household bleach will be effective against coronaviruses when properly diluted. Prepare a bleach solution by mixin tablespoons (1/3rd cup) bleach per gallon of water or 4 teaspoons bleach per quart of water Products with EPA-approved emerging viral pathogens [facility] iconexternal icon are expected to be effective against COVID-19 based on data for harder to kill viruses. Follow the clubhouse manager's instructions for all cleaning and disinfection products (e.g., concentration, application method and contact time, etc.). Soft (porous) surfaces such as carpeted floor, rugs, and drapes Remove visible contamination if present and clean with appropriate machining associate indicated for use on these surfaces. After cleaning: Launder items as appropriate in accordance with the clubhouse manager's instructions. If possible, launder items using the warmest appropriate water setting for the items and dry items completely, or Clothing, towels, linens and other items that go in the laundry Wear disposable gloves when handling dirty laundry from an ill person and then discard after each use. If using reusable gloves, those gloves should be dedicated for cleaning and disinfection of surfaces for COVID-19 and should not be used for other household purposes. Clean hands immediately aftergloves are removed. If no gloves are used when handling dirty laundry, be sure to wash hands afterwards. If possible, do not shake dirty laundry. This will minimize the possibility of dispersing virus through the air. Launder items as appropriate in accordance with the clubhouse manager's instructions. If possible, launder items using the warmest appropriate water setting for the items and dry items completely. Dirty laundry from an ill person can be washed with other people's items. Clean and disinfect clothes hampers according to guidance above for surfaces. If possible, considerplacing a harness and bag inspector that is either disposable (can be thrown away) or can be laundered. CDC has a list of EPA approved cleaning products on their website - https://www.cdc.gov/coronavirus/ 2019-ncov/community/home/cleaning-disinfection.html https://www.Razume.com/Hugwr-Jycndwaxpqn-Xfqbwfxr-Products-List.pdf LOG607cerCoupons Near Me Stores with delivery and corn picker services: [facility]: Free corn picker at locations Delivery is $12.95 a month Website - [employer]: Director Of Teenage Activities $2.95 (1st order is free) Delivery is $14.95 Website - [employer]: ruling machine set up operator is free Delivery is $5.95 Website - [employer]: ruling machine set up operator is $4.95 Delivery is $9.95 Website - [employer]: ruling machine set up operator is $4.95 Delivery is $9.95 Website - [employer]: Can be ordered for delivery and corn picker with [employer] Website - [facility] [employer]: Free deliver for first 3 orders of $35 or more Website - [employer] Will deliver from [facility], [employer], [employer], and [employer]. Annual membership is $99 Monthly membership is $14 * Attachments The following attachments cannot be sent through Care Everywhere. * Preeclampsia Discharge Instructions (Greek) documented in this [facility]01-05-2023 Obstetrics Note* Note - Sheila Harrell RN - 11/30/2022 10:37 AM EST Swabs given to patient and educated how to use and to bring to [id number] Obstetrics Note* Note - Sheila Harrell RN - 11/30/2022 10:30 AM EST Breast pump use indicated for this pt. Due to: in [facility] breast pump, supplies kit, swabs and [...] label swabs/syringes. Breast milk storage guidelines reviewed. C leaning of pump parts reviewed and basin, soap [...] home pump Told patient to check with LC in [facility] for smaller flange sizes [facility] [id number] NotePatient: Driss Cope Procedure Summary Date: 11/29/22 Room / Location: Anesthesia Start: 1814 Anesthesia Stop: 11/30/22247 Procedure: Labor Analgesia Diagnosis: Scheduled Providers: Responsible Provider: Cruz Fung MD Anesthesia Type: epidural ASA Status: 3 Anesthesia Type: epidural Vitals Value Taken Time BP 133/89 11/30/22 0345 Temp 37.1 11/30/22 0354 Pulse 103 11/30/22 0345 Resp 17 11/30/22 0354 SpO2 99 11/30/22 035 Anesthesia Post Evaluation Patient location during evaluation: [...] discharged once all PACU criteria has been met.[facility]01-05-2023 NotePatient: Driss Cope Procedure Summary Date: 11/29/22 [...] Allowed opportunity for questions and acknowledgement of understanding.[facility]01-05-2023 Labor and delivery summary note* L&D Delivery Note - Irina Kramer DO - 11/30/2022 4:04 AM EST Images from the original note were not included. Vaginal Delivery Note Department of Obstetrics and Gynecology Patient: Driss Cope : 1995 Date of delivery: 11/30/2022 Pre-operative Diagnosis: Driss Mojica0 at 35w1d 1. <37 weeks 2. 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 Bowden; Dr. Kramer Information: Information for the patient's : Francie Cope [[id number]] Information for the patient's : Francie Cope [[id number]] Description: normal Meconium Noted: No Anesthesia: epidural anesthesia Complications: None Application and Delivery: Driss Sidhu at 35w1d admitted for IOL-PreEwSF. Her labor course consisted of cytotec, 60 mlfoley bulb, pitocin, and AROM. Once complete she [...] delivery of the placenta was spontaneous and appearedintact. Pitocin was started. The vagina was swept of all clots and debris. The perineum and vagina were evaluated. 1000 mcg rectal cytotec were given for uterine tone and persistent bleeding. A 2nd degree perineal laceration was found and repaired in standard fashion with 3-0 Vicryl. A right labiallaceration was found and repaired with 4-0 vicryl. Her bleeding was controlled and uterine tone wasfirm. All counts were correct. Mother and baby [...] Rubella Immunity Status: No results found for: CAITY Irina Kramer DO 11/30/2022, 4:04 AM Associated attestation - Carol Bowden MD - 12/01/2022 8:22 AM EST Procedures or Surgery: I was present for all morales elements of the procedure or surgery as described in the resident note. [facility] [id number] NoteEpidural Block Time Out: 11/29/2022 6:17 PM Patient location during procedure: OB Start time: 11/29/2022 6:18 PM End time: 11/29/2022 6:45 PM Reason for block: labor analgesia Staffing Performed: SHIPPING PACKER Resident/SHIPPING PACKER: Jimmie Kaur APRN - SHIPPING PACKER Preanesthetic Checklist Completed: patient identified, IV checked, [...] patient tolerated procedure well with no immediate complicationsP[facility] Rest [facility]-04[facility] Plan of care note* Care Plan - Clotilde Mg RN - 11/29/2022 7:45 AM EST The patient will continue to make cervical change. Clotilde Mg RN [facility]01-03-2023 NotePatient: Driss Cope Procedure Information Date: [...] products. patient is not NPO [facility]01[facility]23 NoteLabor Progress Note Date: 11/28/2022 Time: [...] time. FHT cat I and reassuring. CCM. Cx:-3 FHT: Cat 1 [place]:q3-4 min A/P: 1. IOL-PreEwSF. FHT 130 baseline, with moderate variability, Accelerations present Yes, and rare late deceleration . Cervical exam unchanged. Cytotec x4 placed at this time. Patient intermittently feeling contractions. BP mild range. Cx: 1-/-3 FHP: defer FHT: Cat I [place]: a3-4min A/P: 1. IOL-PreEwSF: FHT Category I, [...] Cx: unchanged FHP: defer FHT: Cat I [place]: q4min A/P: 1. IOL-PreEwSF: FHT Category I, [...] after. PRINCE BRADY DO 11/29/2022 6:17 AM Cx:1-2/60/-3 FHT: Cat I [place]:q4-5mins A/P: 1. IOL-PreEwSF: Cat I FHT with [...] per protocol. CCM. Cx:defer FHT: Cat I [place]:q4-6mins A/P: 1. IOL-PreEwSF: Cat I FHT with baseline 120, moderate variability, spontaneous accelerations, and no decelerations. BP normotensive to mild range since last note time. Pitocin @ 2 cc/hr, continue to titrate per protocol. Magnesium sulfate running for seizure prophylaxis, UOP 400 ml over past 4 hours. CCM. Cx:defer FHT: Cat I [place]:q4-5mins A/P: 1. IOL-PreEwSF: Cat I FHT with baseline 135, moderate variability, spontaneous accelerations, and no decelerations. BP normotensive to mild range since last note time. Pitocin @ 6 cc/hr, continue to titrate per protocol. Magnesium sulfate running for seizure prophylaxis, UOP 600 ml over past 4 hours. Will plan for AROM soon. CCM. Cx:defer FHT: Cat I [place]:irritability A/P: 1. IOL-PreEwSF: Pit @ 8 mu/min. Patient resting comfortably and only irritability tracing on toco. BP most recently mild range. On magnesium sulfate for seizure prophylaxis. UOP adequate. Continue magnesium and continue to titrate pitocin per protocol. Plan for AROM once patient rudi more regularly. Electronically signed by Cortney Velasquez DO 11/29/2022 4:21 PM Cx:/-3 FHT: Cat 1 [place]:Not tracing A/P: 1. IOL-PreEwSF. FHT 135 baseline, with moderate variability, Accelerations present Yes, and no decelerations seen . AROM at this time for moderate amount blood tinged fluid. Pitocin at 8cc/hr. Maternal BP mild range. On Magnesium for Seizure prophylaxis. Patient with adequate urinary output. CCM. Cx: defer FHP: defer FHT: Cat II [place]: not tracing well A/P: 1. IOL-PreEwSF: FHT Category II for brief period of lates vs early deceleration (more content not included)...[facility]01-03-2023 NoteObstetrical History and Physical CHIEF COMPLAINT: SUH [...] 34w6d Is this patient being delivered between 37r7m-57q5d weeks with an acceptable medical indication (obstetric, maternal, and/or )? NA: Not Applicable: This patient is being delivered outside of the PC-01 range (03q0v-55r0t) for reasons indicated in the medical record. [...] VTE Prophylaxis: Not Indicated (more content not included)...[facility]01-03-2023 History and physical note* Cassie Constantino MD - 11/28/2022 12:48 AM EST Images from the original note were not included. Obstetrical History and Physical CHIEF COMPLAINT: SUH HISTORY [...] 34w6d Is this patient being delivered between 12z5o-01h0v weeks with an acceptable medical indication (obstetric, maternal, and/or )? NA: Not Applicable: This patient is being delivered outside of the PC-01 range (86u5z-35r6q) for reasons indicated in the medical record. [...] Housing Stability: Not on file Family History: @FAMXNH@ Medications Prior to Admission: No medications prior to admission. REVIEW OF SYSTEMS: Const: Negative HEENT: Negative Resp: Negative CVS: Negative GI: Negative : Negative MSK: Negative Breast: Negative Skin: Negative Heme/Lymph:Negative Endo: Negative Neuro: Negative Psych: Negative PHYSICAL EXAM: Vitals: 11/28/22 0045 BP: (!) 162/73 Pulse: (!) 130 Resp: 16 Temp: 36.8 C (98.2 F) General appearance: awake, alert, cooperative, no apparent [...] SCDs: Not Indicated VTE Prophylaxis: Not Indicated 2. PreEwSF - Met criteria at outside hospital with elevated BP - Started on Magnesium there and transported here for delivery - Persistent severe range BP on admission - Acutely treated with 20 IV Labetalol - PreE labs at OSH wnl, will repeat on admission - Endorsing SUH on admission with treat with tylenol Discussed with Dr Ryder and Kal, who agrees with plan. Cassie Constantino MD 11/28/2022, 12:48 AM [facility] [id number] History and physical note* Cassie Constantino MD - 11/28/2022 12:48 AM EST Images from the original note were not included. Obstetrical History and Physical CHIEF COMPLAINT: SUH HISTORY [...] 34w6d Is this patient being delivered between 87c1b-23k8o weeks with an acceptable medical indication (obstetric, maternal, and/or )? NA: Not Applicable: This patient is being delivered outside of the PC-01 range (05e3u-25r4i) for reasons indicated in the medical record. [...] Housing Stability: Not on file Family History: @FAMXNH@ Medications Prior to Admission: No medications prior to admission. REVIEW OF SYSTEMS: Const: Negative HEENT: Negative Resp: Negative CVS: Negative GI: Negative : Negative MSK: Negative Breast: Negative Skin: Negative Heme/Lymph:Negative Endo: Negative Neuro: Negative Psych: Negative PHYSICAL EXAM: Vitals: 11/28/22 0045 BP: (!) 162/73 Pulse: (!) 130 Resp: 16 Temp: 36.8 C (98.2 F) General appearance: awake, alert, cooperative, no apparent [...] SCDs: Not Indicated VTE Prophylaxis: Not Indicated 2. PreEwSF - Met criteria at outside hospital with elevated BP - Started on Magnesium there and transported here for delivery - Persistent severe range BP on admission - Acutely treated with 20 IV Labetalol - PreE labs at OSH wnl, will repeat on admission - Endorsing SUH on admission with treat with tylenol Discussed with Dr Ryder and Kal, who agrees with plan. Cassie Constantino MD 11/28/2022, 12:48 AM documented in this [facility]01-02-2023 Evaluation + Plan note Extracted from: Title:OB High Risk Antepartum Visit * Author:WINSOME PRESCOTT MD [employer] Date:11/27/22 Impression and Plan Diagnosis 34 weeks 5 days. Preeclampsia. contractions. Maternal tachycardia.. Course: Worsening, New onset headache may be a signal of worsening symptoms of preeclampsia.. Orders I discussed this case with the maternal- medicine department at [facility] in [facility], Dr. Thea Nieves, she accepted to transfer due to preeclampsia. Plan: Magnesium sulfate per protocol, betamethasone, transfer arrangements are in progress.. 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 She is provided with a note for work. Additional diagnosis: Constipation, UTI and [facility]08-19-2022 Hospital Discharge instructions Follow Up Care 07/14/2022 06:07:36 With:Cruz Meza Address:Unknown When:07/17/2022 07:24:48 With:CRUZ RODRÍGUEZ Address: [address] [place] [address]- Business (1) When:Within 3 Day(s) [facility]08-19-2022 Hospital Discharge instructions Follow Up Care 07/14/2022 04:40:16 With:Cruz Meza Address: [address], [address] [place] [address]- Business (1) When:07/17/2022 Comments:Appointment has already been scheduledCall Dr if fever>100.5 F, heavy bleedingCall for any problems.Call for severe abdominal painCall physician for heavy vaginal bleedingCall physician if symptoms worsenPlease call if you need to rescheduleReturn for contractions closer, longer, harderReturn ifruptured membranes or vaginal bleeding [facility]05-31-2022 Evaluation + Plan note Diagnostic Tests Pending * [id number] 04/25/22 * NIGEL w/Reflex if POS 04/25/22 * Ceruloplasmin 04/25/22 * HCV Antibody RFX to Quant PCR 04/25/22 * HBV Core Ab 04/25/22 * Hepatitis B Surface Antibody 04/25/22 * Hepatitis B Surface Antigen 04/25/22 * Smooth Muscle Antibody Screen 04/25/22 [facility]05-24-2022 Evaluation note* Encounter Date Diagnosis Assessment Notes Treatment Notes Treatment Clinical Notes March, Elevated liver function tests (ICD-10 - R79.89) LABS INDICATED ABOVE [facility] [employer] Other Evaluation note* Diagnosis Pelvic pain in female- Primary Unspecified symptom associated with female genital organs [facility] Diagnosis Chronic pelvic pain in female- Primary Unspecified symptom associated with female genital organs Constipation, unspecified constipation type High-tone pelvic floor dysfunction Other specified disorders of female genital organs Diastasis of rectus abdominis Dysmenorrhea Other specified dyspareunia [facility] Diagnosis Endometriosis- Primary Endometriosis, site unspecified Pelvic and perineal pain Unspecified symptom associated with female genital organs [facility] Diagnosis Pelvic pain in female- Primary Unspecified symptom associated with female genital organs [facility] Diagnosis Pelvic pain in female- Primary Unspecified symptom associated with female genital organs [facility] Diagnosis High-tone pelvic floor dysfunction- Primary Other specified disorders of female genital organs Chronic pelvic pain in female Unspecified symptom associated with female genital organs [facility] Diagnosis Pelvic and perineal pain Unspecified symptom associated with female genital organs [facility] Diagnosis Menorrhagia with regular cycle Pelvic pain in female Unspecified symptom associated with female genital organs Uses control documented in this encounter [facility]* Diagnosis Preeclampsia, severe, third trimester- Primary Preeclampsia, severe, third trimester documented in this encounter [facility]* Diagnosis Pre-eclampsia, severe, delivered- Primary documented in this encounter [facility]* Diagnosis Dysmenorrhea, unspecified documented in this encounter [facility] HealthcareEvaluation note* Diagnosis Well woman exam with routine gynecological exam Routine gynecological examination documented in this encounter [facility]Evaluation note* Diagnosis Hypertension, unspecified type (CMS/HCC)- Primary Paroxysmal tachycardia, unspecified (CMS/HCC) Paroxysmal tachycardia, unspecified Chronic right shoulder pain Pain in joint, shoulder region Scapular dyskinesis Lack of coordination documented in this encounter [facility] HealthcareEvaluation note* Diagnosis Pain in female genitalia on intercourse Dyspareunia Endometriosis Endometriosis, site unspecified documented in this encounter [facility] HealthcareEvaluation noteNo assessment information availableJ.W. [facility] Work Phone: History general Narrative - Reported* Type Description Date Medical History headache Surgical History appendectomy Surgical History shoulder surgery Surgical History endometriosis [employer] Other History of Present illness Narrative* 26 [...] engaged x 1 year * working at [employer] in [place] [address] Work Phone: Hospital course Narrative No data available for this section [facility] No data available for this section [facility] No data available for this section [facility]Reason for visit NarrativePT HERE AT REQUEST OF DR RODRÍGUEZ FOR EVALUATION AND TREATMENT OF ELVATED LIVER FUNCTION- ( DR. SAMUEL PT), LABS FROM DR RODRÍGUEZ REVIEWED BY DR Iraheta TM Other Summary Purpose Family History No Family History Records FoundUnknown Family Member Name Dates Details No pertinent family history: Mother(V49.89, Z78.9) Status:Active Relationship Condition Age at Onset Recorded Date/T laney father Malignant neoplasm of colon Unknown grandparent Malignant neoplasm of colon Unknown Malignant neoplasm of breast Unknown grandparent Malignant neoplasm of breast Unknown father Family history of colon cancer Unknown Unknown Malignant neoplasm Unknown family member Unknown mother Hypertension Unknown Advance Directives No Advanced Directives Records FoundLatest Code Status on File Code Status Date Activated Date Inactivated Comments Full Code 11/28/2022 12:47 AM 12/02/2022 8:31 PM Latest Code Status on File Code Status Date Activated Date Inactivated Comments Full Code 11/28/2022 12:47 AM 12/02/2022 8:31 PM Advance Directive Response Recorded Date/ Time Advance Directives No May 16 12:02pm Procedure Findings Note Post Operative Note: PreOp D iagnosis: chronic pelvic pain Post-Procedure Diagnosis: endometriosis Procedure: 1. Laparoscopic excision of endometriosis 2. Bilateral ureterolysis Surgeon: Dr. Charlene Rodriguez Resident/Fellow/Other Order Analyst: Glory Palacio Anesthesia: general I.V. Fluids: 500 [...] to discuss pain related to endometriosis, declined precision farming specialist. UTILITY PERSON Reason for Referral Specialty Diagnoses / Procedures Referred By Michaela t Referred To Contact [facility] Diagnoses Pelvic and perineal pain Procedures MRI FEMALE PELVIS WO/W IVCON MRI PELVIS W/O & W/CONTRAST MATERIAL Charlene Rodriguez DO [address] [address] Mr Imaging Referral ID Status Reason Start Date Expiration Date Visits Requested Visits Authorized [id number] Authorized Auto-Generat ed Referral 05/17/2023 06/15/2024 1 1 Specialty Diagnoses / Procedures Referred By Michaela house Referred To Contact [facility] Diagnoses Constipation, unspecified constipation type High-tone pelvic floor dysfunction Diastasis of rectus abdominis Dysmenorrhea Other specified dyspareunia Chronic pelvic pain in female Procedures CONSULT TO PHYSICAL THERAPY PHYSICAL THERAPY EVALUATION HIGH COMPLEX 45 MINS Srinivasa Downs, FINANCIAL RETIREMENT PLAN SPECIALIST.RECORDING CLERK [address] [facility] [place], [place] [id number] [address] [place] [address] Referral ID Status Reason Start Date Expiration Date Visits Requested Visits Authorized [id number] Pending Review Auto-Generat ed Referral 05/01/2023 04/30/2024 1 1 Chief Complaint and Reason for Visit Chief Complaint Admit Date N94.10 N80.9 February 02, 2025 3:1 6pm Additional Source Comments INFORMATION SOURCE (unrecogn ized section and content) DATE CREATED AUTHOR 10/26/2020 [facility] DATE CREATED AUTHOR AUTHOR'S ORGANIZ ATION 11/06/2020 [facility] DATE CREATED AUTHOR AUTHOR'S ORGANIZ ATION 12/17/2020 [facility] [place][note 2] DATE CREATED AUTHOR AUTHOR'S ORGANIZ ATION 04/21/2021 [facility] DATE CREATED AUTHOR AUTHOR'S ORGANIZ ATION 06/05/2021 [facility] DATE CREATED AUTHOR AUTHOR'S ORGANIZ ATION 10/02/2021 [facility] DATE CREATED AUTHOR AUTHOR'S ORGANIZ ATION 02/10/2022 [facility] DATE CREATED AUTHOR AUTHOR'S ORGANIZ ATION 12/05/2022 [facility] DATE CREATED AUTHOR AUTHOR'S ORGANIZ ATION 04/30/2024 [facility] DATE CREATED AUTHOR AUTHOR'S ORGANIZ ATION 01/21/2025 [facility] DATE CREATED AUTHOR AUTHOR'S ORGANIZ ATION 02/09/2025 [facility] DATE CREATED AUTHOR AUTHOR'S ORGANIZ ATION 03/15/2025 [facility] DATE CREATED AUTHOR AUTHOR'S ORGANIZ ATION 03/24/2025 [facility] Care Team (unrecognized sect ion and content) Road Boss Relationship Specialty Start Date End Date Cruz Rodríguez MD [address] [place] [phone] PCP - General Family Medicine 12/03/14 Road Boss Relationship Specialty Start Date End Date Cruz Rodríguez MD [address] [place] [phone] PCP - General Family Medicine 12/03/14 Road Boss Relationship Specialty Start Date End Date Cruz Rodríguez MD [address] [place] [phone] PCP - General Family Medicine 12/03/14 Road Boss Relationship Specialty Start Date End Date Cruz Rodríguez MD [address] [place] [phone] PCP - General Family Medicine 12/03/14 Road Boss Relationship Specialty Start Date End Date Cruz Rodríguez MD [address] [place] [phone] PCP - General Family Medicine 12/03/14 Road Boss Relationship Specialty Start Date End Date Cruz Rodríguez MD [address] [place] [phone] PCP - General Family Medicine 12/03/14 Road Boss Relationship Specialty Start Date End Date Cruz Rodríguez MD [address] [place] [phone] PCP - General Family Medicine 12/03/14 Road Boss Relationship Specialty Start Date End Date Cruz Rodríguez MD [address] [place] [address] PCP - General Family Medicine 12/03/14 Road Boss Relationship Specialty Start Date End Date Cruz Rodríguez MD [address] [place] [phone] PCP - General Family Medicine 12/03/14 Road Boss Relationship Specialty Start Date End Date Cruz Rodríguez MD [address] [place] [phone] PCP - General Family Medicine 12/03/14 Road Boss Relationship Specialty Start Date End Date Cruz Rodríguez MD [address] [place] [address] PCP - [facility] 09/26/21 Cruz Rodríguez MD [address] [place] [address] PCP - General Family Medicine 04/10/23 Cruz Rodríguez MD [address] [place] [address] PCP - [facility] 02/24/23 Zenobia East NP [address] [place] [address] Nurse Practitioner Family Medicine 10/05/23 Trista Thao NP [address] [place] [phone] Nurse Practitioner Pulmonary Disease 10/05/23 Road Boss Relationship Specialty Start Date End Date Cruz Rodríguez MD [address] [place] [phone] PCP - General Family Medicine 12/03/14 Road Boss Relationship Specialty Start Date End Date Cruz Rodríguez MD [address] [place] [phone] PCP - General Family Medicine 12/03/14 Road Boss Relationship Specialty Start Date End Date Cruz Rodríguez MD [address] [place] [address] PCP - [facility] 09/26/21 Cruz Rodríguez MD [address] [place] [address] PCP - [facility] 02/24/23 Nay Beltran DO [address] [place] [address] PCP - General Family Medicine 02/14/24 Road Boss Relationship Specialty Start Date End Date Cruz Rodríguez MD [address] [place] [address] PCP - [facility] 09/26/21 Cruz Rodríguez MD [address] [place] [address] PCP - [facility] 02/24/23 Nay Beltran DO [address] [place] [address] PCP - General Family Medicine 02/14/24 Road Boss Relationship Specialty Start Date End Date Cruz Rodríguez MD [address] [place] [address] PCP - [facility] 09/26/21 Cruz Rodríguez MD [address] [place] [address] PCP - [facility] 02/24/23 Nay Beltran DO [address] [facility] [address] [place] [address] PCP - General Family Medicine 02/14/24 Road Boss Relationship Specialty Start Date End Date Cruz Rodríguez MD [address] [place] [address] PCP - [facility] 09/26/21 Cruz Rodríguez MD [address] [place] [address] PCP - [facility] 02/24/23 Nay Beltran DO [address] [facility] [address] [place] [address] PCP - General Family Medicine 02/14/24 Road Boss Relationship Specialty Start Date End Date Cruz Rodríguez MD [address] [place] [address] PCP - [facility] 09/26/21 Cruz Rodríguez MD [address] [place] [address] PCP - [facility] 02/24/23 Nay Beltran DO [address] [place] [address] PCP - General Family Medicine 02/14/24 Road Boss Relationship Specialty Start Date End Date Cruz Rodríguez MD [address] [place] [address] PCP - [facility] 09/26/21 Nay Beltran DO [address] [place] [address] PCP - General Family Medicine 02/14/24 Road Boss Relationship Specialty Start Date End Date Nay Beltran DO [address] [place] [address] PCP - General Family Medicine 02/14/24 Road Boss Relationship Specialty Start Date End Date Nay Beltran DO [address] [place] [address] PCP - General Family Medicine 02/14/24 Team Status: Active Member Role Status Dates Cruz Rodríguez MD Primary Care Provider Active Team Status: Inactive Member Role Status Dates Cruz Rodríguez MD Primary Care Provider Active S tart: February 02, 2025 End: February 02, 2025 Nathan Pop DO Attending Provider Active Start : February 02, 2025 End: February 02, 2025 Source Comments (unrecognize d section and content) In the event this informatio n is protected by the Federal Confidentiality of Alcohol and Drug Abuse Patient Records regulations: The Federal rules restrict any use of the information to criminally investigate or prosecute any alcohol or drug abuse patient.[facility] the event this information is protected by the Federal Confidentiality of Alcohol and Drug Abuse Patient Records regulations: The Federal rules restrict any use of the information to criminally investigate or prosecute any alcohol or drug abuse patient.[facility] Hospital[facility] the event this information is protected by the Federal Confidentiality of Alcohol and Drug Abuse Patient Records regulations: The Federal rules restrict any use of the information to criminally investigate or prosecute any alcohol or drug abuse patient.[facility] Hospital[facility] the event this information is protected by the Federal Confidentiality of Alcohol and Drug Abuse Patient Records regulations: The Federal rules restrict any use of the information to criminally investigate or prosecute any alcohol or drug abuse patient.[facility] Hospital[facility] the event this information is protected by the Federal Confidentiality of Alcohol and Drug Abuse Patient Records regulations: The Federal rules restrict any use of the information to criminally investigate or prosecute any alcohol or drug abuse patient.[facility] HospitalIn the event this information is protected by the Federal Confidentiality of Alcohol and Drug Abuse Patient Records regulations: The Federal rules restrict any use of the information to criminally investigate or prosecute any alcohol or drug abuse patient.[facility] HospitalIn the event this information is protected by the Federal Confidentiality of Alcohol and Drug Abuse Patient Records regulations: The Federal rules restrict any use of the information to criminally investigate or prosecute any alcohol or drug abuse patient.[facility] HospitalIn the event this information is protected by the Federal Confidentiality of Alcohol and Drug Abuse Patient Records regulations: The Federal rules restrict any use of the information to criminally investigate or prosecute any alcohol or drug abuse patient.[facility] HospitalIn the event this information is protected by the Federal Confidentiality of Alcohol and Drug Abuse Patient Records regulations: The Federal rules restrict any use of the information to criminally investigate or prosecute any alcohol or drug abuse patient.[facility] HospitalIn the event this information is protected by the Federal Confidentiality of Alcohol and Drug Abuse Patient Records regulations: The Federal rules restrict any use of the information to criminally investigate or prosecute any alcohol or drug abuse patient.[facility] HospitalIn the event this information is protected by the Federal Confidentiality of Alcohol and Drug Abuse Patient Records regulations: The Federal rules restrict any use of the information to criminally investigate or prosecute any alcohol or drug abuse patient.[facility] HospitalIn the event this information is protected by the Federal Confidentiality of Alcohol and Drug Abuse Patient Records regulations: The Federal rules restrict any use of the information to criminally investigate or prosecute any alcohol or drug abuse patient.[facility] HospitalIn the event this information is protected by the Federal Confidentiality of Alcohol and Drug Abuse Patient Records regulations: The Federal rules restrict any use of the information to criminally investigate or prosecute any alcohol or drug abuse patient.[facility] HospitalIn the event this information is protected by the Federal Confidentiality of Alcohol and Drug Abuse Patient Records regulations: The Federal rules restrict any use of the information to criminally investigate or prosecute any alcohol or drug abuse patient.[facility] HospitalIn the event this information is protected by the Federal Confidentiality of Alcohol and Drug Abuse Patient Records regulations: The Federal rules restrict any use of the information to criminally investigate or prosecute any alcohol or drug abuse patient.[facility] Reason for Visit (unrecogniz ed section and content) Reason Comments Menstrual Problem Reason Comments Vaginal Bleeding Reason Comments Endometriosis Reason Comments Insurance Authorization [place] Reason Comments Pelvic Pain Specialty Diagnoses / Procedures Referred By Contac t Referred To Contact VESSEL SCRAPPER / GYNECOLOGY Diagnoses Painful menstrual periods Painful Periods Procedures OFFICE/OUTPATIENT ESTABLISHED SF MDM 10-19 MIN EST WHI PATIENT Srinivasa Downs, FINANCIAL RETIREMENT PLAN SPECIALIST.RECORDING CLERK [address] [place] [address] Srinivasa Downs APRN.RECORDING CLERK [address] [place] [address] Referral ID Status Reason Start Date Expiration Date V isits Requested Visits Authorized [id number] Authorized 08/20/2023 11/25/2023 1 99 Reason Comments Radiology MRI Specialty Diagnoses / Procedures Referred By Contac t Referred To Contact MR IMAGING Diagnoses Pelvic and perineal pain Procedures MRI FEMALE PELVIS WO/W IVCON MRI PELVIS W/O & W/CONTRAST MATERIAL Charlene Rodriguez, DO [address] [facility] [address] [place] [address] [place] [address] Referral ID Status Reason Start Date Expiration Date V isits Requested Visits Authorized [id number] Closed Auto-Generate d Referral 05/17/2023 06/15/2024 1 1 Reason Onset Date Comments Refill Request 01/02/2024 Reason Comments Menorrhagia Cramping with bleedi ng Reason Comments Surgery Cancelled Specialty Diagnoses / Procedures Referred By Contac t Referred To Contact Diagnoses Preeclampsia, severe, third trimester Procedures O14.13 - Preeclampsia, severe, third trimester Ritu Ryder, [address] [place] [address] [facility] [address] [place] [address] Referral ID Status Reason Start Date Expiration Date Visits Re quested Visits Authorized [id number] 1 1 Reason Comments Blood Pressure Check Reason Comments Dysmenorrhea Reason Comments [facility] Visit Reason Comments Shoulder Pain Reason Comments Painful [facility] Scheduled Active and Recently Administ ered Medications (unrecognized section and content) Medication Order 11/30/2022 12/01/2022 12/02/2022 ferrous sulfate tablet 325 mg 325 mg, Oral, 2 times daily with meals, First dose on Sun11/30/22 at 0800, , Start if Hgb less than 10. 0800 (Not Given - Provider: Alejandra Arcos RN - Reason: Order parameters not met)1700 (Canceled Entry - Provider: Automatic Discharge Provider - Comment: Automatically canceled at discontinue of medication order) 0800 (Not Given - Provider: Alejandra Arcos RN - Reason: Order parameters not met)1700 (Canceled Entry - Provider: Automatic Discharge Provider - Comment: Automatically canceled at discontinue of medication order) 0800 (Not Given - Provider: Anna Booth RN - Reason: Order parameters not met)1700 (Canceled Entry - Provider: Automatic Discharge Provider - Comment: Automatically canceled at discontinue of medication order) miSOPROStol (Cytotec) tablet 1,000 mcg (COMPLETED) 1,000 mcg, Rectal, Once, On Sun11/30/22 at 0315, For 1 dose 0302 (Given - Provider: Chelsi Carlson RN - Comment: given emergently for post hemm) NIFEdipine XL (Procardia XL) 24 hr tablet 30 mg 30 mg, Oral, Daily, First dose on Sun11/28/22 at 0115, Do not crush, chew, or split. 0808 (Given - Provider: Alejandra Arcos RN) 0803 (Given - Provider: Alejandra Arcos RN) 0942 (Given - Provider: Anna Booth RN) Continuous Medication Order 11/30/2022 12/01/2022 12/02/2022 magnesium sulfate 20 GM/500ML infusion () 2,000 mg/hr (50 mL/hr), IntraVENous, Continuous, Starting on Sun11/28/22 at 0100, For 3 days 2 hours 0536 (New Bag - Provider: Chelsi Carlson RN)1502 (New Bag - Provider: Alejandra Arcos RN) 0112 (New Bag - Provider: Lani Fraga, DIALLO)0300 (Stopped - Provider: Lani Fraga RN) oxytocin (Pitocin) 30 units in 500 mL infusion (CANCELED) 1-20 paulo-units/min (1-20 mL/hr), IntraVENous, Continuous, Starting on Sun11/29/22 at 1115, Begin infusion at 1 paulo-unit/min (1 paulo-unit per min = 1 mL per hour) and increase by 1 paulo-unit/min after 30 minutes. Then increase by 2 paulo-units/min as needed, no faster than every 30 minutes, until labor is achieved. Labor is defined as contractions every 2-3 minutes with cervical changes or Wellesley units (MVU) greater than 200 in a 10-minute window. Maximum infusion rate: 20 paulo-unit/min. Contact provider if maximum rate does not achieve desired response. Provider may order alternative titration goal or other clinically appropriate goal of titration rate (s). Smaller titration increments of 1 paulo-units/min, not faster than every 30 minutes, may be used when approaching therapeutic goal. 0059 (Rate/Dose Change - Provider: Chelsi Carlson RN)0223 (Rate/Dose Change - Provider: Chelsi Carlson RN) oxytocin (Pitocin) 30 units in 500 mL infusion 30 Units, IntraVENous, at 30 mL/hr, Continuous, Starting on Constance 11/30/22 at 0430, Post- use ONLY after delivery of baby/ excessive bleeding/ uterine atony. Bag 1 of 2: Bolus for bag to infuse at 999 ml/hour for 15 minutes (15 units in 250cc). After initial bolus then decrease rate to 250cc/hr for 1 hour. Then discontinue. 0430 (Canceled Entry - Provider: Automatic Discharge Provider - Comment: Automatically canceled at discontinue of medication order) oxytocin (Pitocin) 30 units in 500 mL infusion 125 paulo-units/min (125 mL/hr), IntraVENous, Continuous, Starting on Constance 11/30/22 at 0430, For Immediate Post Use Only. Give after delivery of placenta and initial 30 unit bolus. Bag 2 of 2: 125cc/hr (125 mu/min) for an additional infusion of 500cc (30 units). 0430 (Canceled Entry - Provider: Automatic Discharge Provider - Comment: Automatically canceled at discontinue of medication order) PRN Medication Order 11/30/2022 12/01/2022 12/02/2022 acetaminophen (Tylenol) tablet 650 mg 650 mg, Oral, Every 6 hours PRN, mild pain (1-3), Starting on Constance 11/30/22 at 0422, Give in addition to any other pain medication ordered at same time for any pain indication. Maximum dose of acetaminophen is 4000 mg from all sources in 24 hours. Alternate ibuprofen and acetaminophen every 3 hours. 0531 (Given - Provider: Chelsi Carlson RN)1204 (Given - Provider: Alejandra Arcos RN)1931 (Given - Provider: Lani Fraga RN) 0551 (Given - Provider: Lani Fraga RN)1221 (Given - Provider: Alejandra Arcos RN)232 (Given - Provider: Lida Mark RN) 0942 (Given - Provider: Anna Booth RN)1601 (Given - Provider: Anna Booth, RN) Benzocaine-Benzethonium 20-0.2 % spray Topical, As needed, pain, , Starting on Constance 11/30/22 at 0608, , Apply to perineal area. Patient is capable and may self administer at bedside. diphenhydrAMINE (BENADryl) injection 25 mg(Linked Group 1) 25 mg, IntraVENous, Every 6 hours PRN, itching, Starting on Constance 11/30/22 at 1635 1654 (Given - Provider: Alejandra Arcos RN) diphenhydrAMINE (BENADryl) tablet/capsule 25 mg(Linked Group 1) 25 mg, Oral, Every 6 hours PRN, itching, Starting on Constance 11/30/22 at 1635 1654 (See Alternative - Provider: Alejandra Arcos RN) docusate sodium (Colace) capsule 100 mg 100 mg, Oral, 2 times daily PRN, constipation, Vaginal Delivery, Starting on Constance 11/30/22 at 0422, Do not crush or break. famotidine (Pepcid) tablet 20 mg 20 mg, Oral, 2 times daily PRN, heartburn, Starting on Constance 11/30/22 at 0608, , Renal dose per pharmacy for peptic ulcer prophylaxis. ibuprofen tablet 600 mg 600 mg, Oral, Every 6 hours PRN, mild pain (1-3), Starting on Constance /04/17 at 0422, Alternate ibuprofen and acetaminophen every 3 hours. 0531 (Given - Provider: Chelsi Carlson RN)1204 (Given - Provider: Alejandra Arcos RN)193 (Given - Provider: Lani Fraga RN) 0551 (Given - Provider: Lani Fraga RN)1221 (Given - Provider: Alejandra Arcos RN)232 (Given - Provider: Lida Mark RN) 0942 (Given - Provider: Anna Booth RN)1601 (Given - Provider: Anna Booth RN) lanolin (Lansinoh) cream Topical, As needed, dry skin, nipple discomfort, Starting on Constance 11/30/22 at 0608, , Apply to affected area. ondansetron (Zofran) injection 4 mg(Linked Group 2) 4 mg, IntraVENous, Every 6 hours PRN, nausea, vomiting, Starting on Constance 11/30/22 at 0422, 1st Line. Give IV if patient is unable to take orally. If inadequate response within 60 minutes, proceed to next-line agent or contact provider if no further options ordered. ondansetron ODT (Zofran-ODT) disintegrating tablet 4 mg(Linked Group 2) 4 mg, Oral, Every 8 hours PRN, nausea, vomiting, Starting on Constance 11/30/22 at 0422, 1st Line. If inadequate response within 60 minutes, proceed to next-line agent or contact provider if no further options ordered. Patient should allow tablet to dissolve on tongue. Do not remove from blister pack until just before administering. oxytocin bolus from bag 30 Units (CANCELED) 30 Units, IntraVENous, Administer over 11 Minutes, PRN, Bleeding, Starting on e 11/28/22 at 0042, Pre-Delivery, For Immediate Post Use Only. Give after delivery of placenta. Bag 1 of 2: Bolus for bag to infuse at 999 ml/hour for 15 minutes (15 units in 250cc). After initial bolus then decrease rate to 250cc/hr for 1 hour. Then discontinue. 0251 (Bolus from Bag - Provider: Chelsi Carlson RN) witch yesi-glycerin (Tucks) pad Topical, As needed, hemorrhoids, For perineal pain or discomfort, Starting on Constance 11/30/22 at 0608, , Apply to perineal area. Patient is capable and may self administer at bedside. Linked Groups Order Group 1: diphenhydrAMINE (BENADryl) injection 25 mgJump to med 25 mg, IntraVENous, Every 6 hours PRN, itching, Starting on Constance 11/30/22 at 1635 Or diphenhydrAMINE (BENADryl) tablet/capsule 25 mgJump to med 25 mg, Oral, Every 6 hours PRN, itching, Starting on Constance 11/30/22 at 1635 Group 2: ondansetron ODT (Zofran-ODT) disintegrating tablet 4 mgJump to med 4 mg, Oral, Every 8 hours PRN, nausea, vomiting, Starting on Constance 11/30/22 at 0422
1st Line. If inadequate response within 60 minutes, proceed to next-line agent or contact provider if no further options ordered. Patient should allow tablet to dissolve on tongue. Do not remove from blister pack until just before administering.
Or ondansetron (Zofran) injection 4 mgJump to med 4 mg, IntraVENous, Every 6 hours PRN, nausea, vomiting, Starting on Constance 11/30/22 at 0422
1st Line. Give IV if patient is unable to take orally. If inadequate response within 60 minutes, proceed to next-line agent or contact provider if no further options ordered.
Goals (unrecognized section and content) Goals may be documented in a n alternate section FOR RECORDS PERTAINING TO PATIENTS WHO ARE [...] BE BASED ON THE PRIMARY CLINICAL RECORDS. [employer] [facility]. provides no warranty or guarantee of the accuracy or completeness of information in this document.
== END 2025-05-01 08:28 | disposition home or self-care (01) ==
LOC: US 08:27
PROVIDERS: Family Provider Family Medicine; Visit Provider Obstetrics & Gynecology
DX: Z32.01 Encounter for pregnancy test, result positive (principal); Z3A.09 9 weeks gestation of pregnancy; N92.6 Irregular menstruation, unspecified
CPT/HCPCS: 76817

== ENCOUNTER 2025-05-04 10:47 | Outpatient (OUT) | payer OTHER, SELFPAY ==
--- OUTSIDE RECORDS SUMMARY | 2025-05-01 09:00 | XMS_ITS | Encounter Summary ---
Author Organization [facility] Address [address] [place] [address] Care Team Providers Care Char Dust Cleaner And Salvager Name Role Phone NirajEliceo kauffman Bryant DAY Primary Care Provider [phone] Ruby Eliceo Hurtado DO Unavailable [phone] Reason for Visit * Reason Comments Amenorrhea Encounter Details Date Type Department Care Team (Late Contact Info) Description 05/01/2025 9:00 AM EDT Initial [facility] [address] [place] [address] GA: 9w6d Social History Tobacco Use Types Packs/Day Years Used Date Smoking Tobacco: Never Smokeless Tobacco: Never Alcohol Use Standard Drinks/Week Comments Never 0 (1 standard drink = 0.6 oz pure alcohol) caffeine: 1-2 cups per day, coffee and pop B1300 Health Literacy Answer Date Recor ded How often do you need to hav e someone help you when you read instructions, pamphlets, or other written material from your doctor or pharmacy? Never 12/29/2024 Humiliation, Afraid, Rape, and Kick questionnair e Answer Date Recorded Within the last year, have y ou been afraid of your partner or ex-partner? No 09/19/2023 Within the last year, have y ou been humiliated or emotionally abused in other ways by your partner or ex-partner? No Within the last year, have y ou been kicked, hit, slapped, or otherwise physically hurt by your partner or ex-partner? No 09/19/2023 Within the last year, have y ou been raped or forced to have any kind of sexual activity by your partner or ex-partner? No 09/19/2023 Social Connection and Isolat ion Panel [NHANES] Answer Date Recorded In a typical week, how many times do you talk on the phone with family, friends, or neighbors? More than three times a week 12/29/2024 How often do you get togethe r with friends or relatives? Once a week 12/29/2024 How often do you attend chur or sabianist services? Patient declined 12/29/2024 Do you belong to any clubs o r organizations such as buddhist groups, unions, fraternal or athletic groups, or school groups? No 12/29/2024 How often do you attend meet ings of the clubs or organizations you belong to? Patient declined 12/29/2024 Are you , , di vorced, , never , or living with a partner? 12/29/2024 AUDIT-C Answer Date Recorded Q1: How often do you have a drink containing alcohol? Monthly or less 12/29/2024 Q2: How many drinks containi ng alcohol do you have on a typical day when you are drinking? Patient does not drink Q3: How often do you have si x or more drinks on one occasion? Never 12/29/2024 Overall Financial Resource Strain (CARDIA) Answe r Date Recorded How hard is it for you to pa y for the very basics like food, housing, medical care, and heating? Not hard at all 12/29/2024 PHQ-2 Answer Date Recorded Patient Health Questionnaire-2 Score 0 12/30/2024 [facility] - Occupational Stress Questionnaire Answer Date Recorded Do you feel stress - tense, restless, nervous, or anxious, or unable to sleep at night because your mind is troubled all the time - these days? Only a little 12/29/2024 Exercise Vital Sign Answer Date Recorde d On average, how many days pe r week do you engage in moderate to strenuous exercise (like a brisk walk)? 3 days 12/29/2024 On average, how many minutes do you engage in exercise at this level? 20 min 12/29/2024 Hunger Vital Sign Answer Date Recorded Within the past 12 months, y ou worried that your food would run out before you got the money to buy more. Never true 12/29/19 25 Within the past 12 months, t he food you bought just didn't last and you didn't have money to get more. Never true 12/29/2024 PRAPARE - Transportation Answer Date Re corded In the past 12 months, has l ack of transportation kept you from medical appointments or from getting medications? No 01/2025 In the past 12 months, has l ack of transportation kept you from meetings, work, or from getting things needed for daily living? No 12/29/2024 Housing Stability Vital Sign Answer Kang e Recorded In the last 12 months, was t here a time when you were not able to pay the mortgage or rent on time? No 09/19/2023 Number of Places Lived in the Last Year Not on f ile 09/19/2023 In the last 12 months, was t here a time when you did not have a steady place to sleep or slept in a prison (including now)? No 09/19/2023 Housing Stability Vital Sign Answer Kang e Recorded In the last 12 months, was t here a time when you were not able to pay the mortgage or rent on time? No 12/29/2024 Number of Times Moved in the Last Year Not on fi le 12/29/2024 At any time in the past 12 m [facility], were you homeless or living in a prison (including now)? No 12/29/2024 Education Answer Date Recorded What is the highest level of school you have completed or the highest degree you have received? 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 female who presents for Amenorrhea Patient presents today for a Nurse OB Intake appointment. Patient is 9w6d with a Estimated Date of Delivery: 11/28/25 OB History Para Term AB Living 2 1 SAB IAB Ectopic Multiple Live Births # Outcome Date GA Lbr Suresh/2nd Weight Sex Type Anes PTL Lv 2 Current 1 Current Medications: has a current medication list which includes the following prescription(s): metoprolol succinate xland vitamins. Medical History: Active Ambulatory Problems Diagnosis Date [...] 03/29/2023 Tachycardia 02/19/2024 Obesity (BMI 30-39.9) 02/19/2024 Diarrhea 03/24/2025 Resolved Ambulatory Problems Diagnosis Date Noted No Resolved Ambulatory Problems Past Medical History: Diagnosis Date Amenorrhea d/t oral contraceptive pills John San infection Headache History of menstrual cramps Varicella zoster Visual impairment Family History Problem Relation Name Age of Onset Hypertension Mother dayanna Colon cancer Father Anemia Father Breast cancer Maternal Grandmother Hypertension Maternal Grandfather sachin Cancer Maternal Grandfather sachin Colon cancer Paternal Grandfather Social History Tobacco Use Smoking status: Never Smokeless tobacco: Never Substance Use Topics Alcohol use: Never Comment: caffeine: 1-2 cups per day, coffee and pop Drug use: Never Past Surgical History: Procedure Laterality Date APPENDECTOMY 05/2016 at [facility] 12/2022 retained placenta DISTAL CLAVICLE EXCISION Right 07/2018 Shoulder - open - DAP LAPAROSCOPY DIAGNOSTIC / BIOPSY / ASPIRATION / LYSIS 02/2019 endometriosis, 2020 LAPAROSCOPY DIAGNOSTIC / BIOPSY / ASPIRATION / LYSIS 02/29/2024 SHOULDER SURGERY Right open distal clavicle excision-DAP VAGINAL DELIVERY 11/2022 No Known Allergies Vitals: Estimated body mass index is 25.68 kg/m?? as calculated from the following: Height as of 12/30/24: 5' 2 . Weight as of this encounter: 140 lb 6.4 oz. BP: Patient's last menstrual period was 02/21/2025. Assessment/Plan Diagnoses and all orders for this visit: Missed menses - Type and screen; Future - ABO/Rh; Future - CBC and differential - Hemoglobin A1c - RPR - Rubella antibody, IgG - Hepatitis B surface antigen - Hepatitis C antibody - HIV-1 and HIV-2 antibodies - Urine culture - POCT , urine manually resulted - POCT urinalysis dipstick manually resulted , unspecified gestational age - Type and screen; Future - ABO/Rh; Future - CBC and differential - Hemoglobin A1c - RPR - Rubella antibody, IgG - Hepatitis B surface antigen - Hepatitis C antibody - HIV-1 and HIV-2 antibodies - Rapid drug screen, urine; Future - Vit-Fe Fumarate-FA ( Vitamins) 28-0.8 MG tablet; Take 1 tablet by mouth Daily Encounter for supervision of normal first in first trimester - Rapid drug screen, urine; Future - Vit-Fe Fumarate-FA ( Vitamins) 28-0.8 MG tablet; Take 1 tablet by mouth Daily Nurse Note: OB Intake: Patient presents today for first OB visit. Patients history has been reviewed in great detail including any potential risks. Patient signed consent forms and patient desires testing in both trimesters. Patient currently has no complaints and has been advised to drink 6-8 glasses of water a day, eatno raw or undercooked meat, and stay away from [facility]. Patient has also been advised to not change litter boxes and eat 6 small meals a day. Patient has been consulted regarding the do's and don'ts ofpregnancy. Patient was given labs and all questions and concerns were answered. Follow Up: Patient is to return in 4 weeks for routine OB appointment. Follow Up: Patient is to have labs drawn at directed and return to office for initial OB appointment with provider. Patient may call office as needed with any concerns or questions. Nurse Visit Completed by: Maurisio Go LPN documented in this encounter Miscellaneous Notes * Addendum Note - Maurisio Go LPN - 05/01/2025 9:00 AM EDTAddended by: MAURISIO GO on: 05/01/2025 11:47 AM Modules accepted: Orders documented in this encounter Plan of Treatment Upcoming Encounters Date Type Department Care Team (Late st Contact Info) Description 05/25/2025 2:40 PM EDT Routine [facility] [address] [place] [address] Nathan Pop DO [address] [place] [address] [place] [address] 09/07/2025 4:00 PM EDT Office Visit [facility] [address] [place] [id number] [facility] [address] [place], [place] [id number] Scheduled Orders Name Type Priority Associated Diagnoses Orde r Schedule Type and screen Lab Routine Missed menses , unspecified gestational age Expected: 05/01/2025 (Approximate), Expires: 05/01/2026 ABO/Rh Lab Routine Missed menses , unspecified gestational age Expected: 05/01/2025 (Approximate), Expires: 05/01/2026 CBC and differential Lab Routine Missed menses , unspecified gestational age Ordered: 05/01/2025 Hemoglobin A1c Lab Routine Missed menses , unspecified gestational age Ordered: 05/01/2025 RPR Lab Routine Missed menses , unspecified gestational age Ordered: 05/01/2025 Rubella antibody, IgG Lab Routine Missed menses , unspecified gestational age Ordered: 05/01/2025 Hepatitis B surface antigen Lab Routine Missed menses , unspecified gestational age Ordered: 05/01/2025 Hepatitis C antibody Lab Routine Missed menses , unspecified gestational age Ordered: 05/01/2025 HIV-1 and HIV-2 antibodies Lab Routine Missed menses , unspecified gestational age Ordered: 05/01/2025 Urine culture Microbiology Routine Missed menses Ordered: 05/01/2025 Rapid drug screen, urine Lab Routine , unspecified gestational age Encounter for supervision of normal first in first trimester Expected: 05/01/2025 (Approximate), Expires: 05/01/2026 documented as of this encounter Procedures Procedure Name Priority Date/Time Associated Diagnosis Comments POCT , URINE Routine 05/01/2025 10:31 AM EDT Missed menses POCT URINALYSIS DIPSTICK Routine 05/01/2025 10:31 AM EDT Missed menses documented in this encounter Results * POCT urinalysis dipstick manually resulted (05/01/2025 10:31 AM EDT) Color, UA Yellow Clarity, UA Clear Glucose, UA Negative Negative - 1999(110) ++++ mg/dL Bilirubin, UA Negative Negative - 4(70) +++ mg/dL Ketones, UA Negative Negative - 160(16) ++++ mg/dL Spec Grav, UA 1.020 1 - 1.03 Blood, UA Negative Negative - 50 Teodoro/mcL pH, UA 5.5 5 - 9 Protein, UA Negative Negative - 1999(20) ++++ mg/dL Urobilinogen, UA 1.0 0.2 - 12 mg/dL Leukocytes, UA Negative Negative - 500+++ Robinson/mcL Nitrite, UA Negative Negative - Positive Urine 05/01/2025 10:3 1 AM EDT Nathan Kiesha DO POINT OF CARE TEST ENTER/EDIT OR DERABLES Final Result * (ABNORMAL) POCT , urine manually resulted (05/01/2025 10:31 AM EDT) Preg Test, Ur Positive Negative Urine 05/01/2025 10:3 1 AM EDT Keepio Kiesha DO POINT OF CARE TEST ENTER/EDIT OR DERABLES Final Result documented in this encounter Visit Diagnoses Diagnosis Missed menses , unspecified gestational age Encounter for supervision of normal first in first trimester headache in first trimester documented in this encounter Care Teams Char Dust Cleaner And Salvager Relationship Specialty Start Date End Date Eliceo Beltran DO [address] [place] [address] PCP - General Family Medicine 02/14/24 Eliceo Beltran DO [address] [place] [address] PCP - Medical [place] [employer] 07/27/24 11/25/99 documented as of this encounter
--- OUTSIDE RECORDS SUMMARY | 2025-05-04 10:53 | XMS_ITS | Encounter Summary ---
Author Organization [facility] Address [address] [place] [address] Care Team Providers Care Printing Sign Machine Operator Name Role Phone Cruz Rodríguez MD Unavailable + 54 Cruz Rodríguez MD Primary Care Provider + Cruz Rodríguez MD Unavailable + 54 Zenobia [place] SERVICE ATTENDANT Unavailable + Trista Thao SERVICE ATTENDANT Unavailable [phone] Eliceo Beltran DO Primary Care Provider +[phone] Eliceo Beltran DO Unavailable [phone] Encounter Details Date Type Department Care Team (Late st Contact Info) Description 09/10/2023 Abstract [facility] [address] [facility] [address] [place] [id number] Rosio Booth DPM [address] [facility] [address] [place] [address] Social History Tobacco Use Types Packs/Day Years Used Date Smoking Tobacco: Never Smokeless Tobacco: Never Tobacco Cessation:Counseling Given: Not Answered Alcohol Use Standard Drinks/Week Comments Never 0 (1 standard drink = 0.6 oz pure alcohol) caffeine: 1-2 cups per day, coffee and pop Education Answer Date Recorded What is the highest level of school you have completed or the highest degree you have received? 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 No / Unsure 09/09/2023 1:42 PM EDT documented as of this encounter Plan of Treatment Upcoming Encounters Date Type Department Care Team (Late st Contact Info) Description 05/25/2025 2:40 PM EDT Routine [facility] [address] [facility] [place] [phone] Nathan Pop, DO [address] [facility] [place] [address] 09/07/2025 4:00 PM EDT Office Visit [facility] [address] [place] [phone] Nathan Pop, DO [address] [facility] [place] [address] documented as of this encounter Visit Diagnoses Not on filedocumented in this encounter Care Teams Printing Sign Machine Operator Relationship Specialty Start Date End Date Cruz Rodríguez MD [address] [place] [address] PCP - [place] [employer] 09/26/2111/25 Cruz Rodríguez MD [address] [place] [address] PCP - General Family Medicine 04/10/23 02/13/24 Cruz Rodríguez MD [address] [place] [address] PCP - [facility] 02/24/23 4 Eliceo Belrtan DO [address] [place] [address] PCP - General Family Medicine 02/14/24 Eliceo Beltran DO [address] [place] [address] PCP - Medical [place] [employer] 07/27/24 11/25/99 Zenobia East NP [address] [place] [address] Nurse Practitioner Family Medicine 10/05/23 04/14/24 Trista Thao NP [address] [place] [address] Nurse Practitioner Pulmonary Disease 10/05/23 04/14/24 documented as of this encounter
--- OUTSIDE RECORDS SUMMARY | 2025-05-04 10:53 | XMS_ITS | Patient Health Record ---
Author Organization [facility] Address [address] [place] [address] Care Team Providers Care Rollway Worker Name Role Phone Cruz Rodríguez Primary Care Provider UnavailAyanna Rivera Unavailable Kelli, Lisa Unavailable [phone] Allergies No Known Allergies Results Component Value Reference Range Notes BLOOD GLUCOSE (IH) Reviewed date:08/03/2024 09:05:58 AM Interpretation:Normal Performing Lab: Notes/Report: Normal Blood Glucose 91 70 - 100 mg/dl Lipid Panel (IH) Reviewed date:08/03/2024 09:05:27 AM Interpretation:Abnormal Performing Lab: Notes/Report: Abnormal TChol 194 0 - 199 mg/dl HDL 49 0 - 59 mg/dl TC/HDL 4.0 0 - 5.1 LDL 122 0 - 99 mg/dl TRG 116 0 - 149 mg/dl Urine Culture and Sensitivit y Reviewed date:07/10/2024 02:49:27 PM Interpretation:Positive Performing Lab:QPT, [facility]-[address], [address] [place], [place] [id number] Gabino Perales MD Notes/Report: 0 Received Date: [id number] CULTURE, URINE, ROUTINE SEE NOTE E.coli INT SEVERIANO AMOX/CLAVULANATE S <=2 AMPICILLIN S <=2 AMP/SULBACTAM S <=2 CEFAZOLIN NR <=4 2 CEFEPIME S <=1 CEFTAZIDIME S <=1 CEFTRIAXONE S <=1 CIPROFLOXACIN S <=0.25 GENTAMICIN S <=1 IMIPENEM S <=0.25 LEVOFLOXACIN S <=0.12 NITROFURANTOIN S <=16 PIP/TAZOBACTAM S <=4 TOBRAMYCIN S <=1 TRIMETHOPRIM/SULFA S <=20 S=Susceptible I=Intermediate R=Resistant * = Not Tested NR = Not Reported NN = See Therapy Comments THERAPY COMMENTS Note 1: For infections other than uncomplicated UTI caused by E. coli, K. pneumoniae or P. mirabilis: Cefazolin is resistant if SEVERIANO > or = 8 mcg/mL. (Distinguishing susceptible versus intermediate for isolates with SEVERIANO < or = 4 mcg/mL requires additional testing.) Note 2: For uncomplicated UTI caused by E. coli, K. pneumoniae or P. mirabilis: Cefazolin is susceptible if SEVERIANO <32 mcg/mL and predicts susceptible to the oral agents cefaclor, cefdinir, cefpodoxime, cefprozil, cefuroxime, cephalexin and loracarbef. CULTURE, URINE, ROUTINE Micro Number: [id number] Test Status: Final Specimen Source: Urine Specimen Quality: Adequate Result: 10,000-49,000 CFU/mL of Escherichia coli Urinalysis (IH) Reviewed date:07/06/2024 01:40:42 PM Interpretation:Abnormal Performing Lab: Notes/Report: Abnormal Blood Non-Hemolyzed 50 negative - c a. 250 Teodoro/ml Urobili normal normal - 12 mg/dL Bili negative negative - large Protein negative negative - 500 mg/dL Nitrites positive negative - positive Ketone negative negative - large mg/dL Ascorbic Acid negative trace - large Glucose negative negative - > 1000 mg/dL pH 7 5.0 - 9.0 Spec. Gr. 1.015 1.000 - 1.030 LEUK 25 negative - ca. 5 00 Robinson/ml Reason For Referral No Information Medications Medication SIG (Take, Route, Frequency, Duration) Notes Start Date End Date Status Jolessa 0.15-0.03 MG 1 tablet Orally Once a day Active Metoprolol Succinate 25 MG 1 capsule Ora lly Once a day Active Immunizations Vaccine Route Administration Date Status Comme nts z2018 Fluzone Quad MDV (0.5m L Admin) 3y/o & older Unknown 02/09/2020 Refused z202 FluBLOK Quad PFS (0.5m L Admin) 18 y/o & older Unknown 05/25/2023 Refused z2022 Fluzone Quad PFS (0.5m L Admin) 6 months & older Unknown 09/11/2021 Refused z2023 Fluzone, 6mo & older, Quad MDV (0.5mL Admin) Unknown 07/16/2023 Refused z2023 Fluzone, 6mo & older, Quad PFS (0.5mL Admin) Unknown 11/12/2023 Contraindications z2023 Fluzone, 6mo & older, Quad PFS (0.5mL Admin) Unknown 04/14/2024 Refused Social History Tobacco Use: Social History Observation Description Date Details (start date - stop date) Never Smoker NA - NA Alcohol Misuse/Abuse (Audit C): Question Answer Notes Did you have a drink containing alcohol in the p ast year? No Points: 0 Interpretation: Negative Tobacco Control (Standard) Question Answer Notes Tobacco use: Nonsmoker Problems Problem Type SNOMED Code ICD Code Onset Dates Problem Status W/U Status Risk Notes Problem Tachycardia (R00.0) Active confirmed Problem [id number] Obesity (BMI 30-39.9) (E66.9) Active confirmed Vital Signs Temperature 97.7 degrees Fahrenheit 07/06/2024 Respiratory Rate 16 /min 07/06/2024 Blood pressure diastolic 74 mm Hg 08/03/2024 Height 64 in 08/03/2024 Blood pressure systolic 112 mm Hg 08/03/2024 Weight 140 lbs 08/03/2024 BMI 24.03 kg/m2 08/03/2024 Encounters Encounter Location Date Provider Diagnosis [id number] [place] [address] 07/06/2024 Ayanna Denson Acute cystitis without hematuria N30.00 [address] [place] [address] 08/03/2024 Cathi Pereira Screening for hypertension Z13.6 ; Screening for lipid disorders Z13.220 and Screening for diabetes mellitus Z13.1 Assessments Encounter Date Diagnosis (ICD Code) Assessment Notes Treatment Notes Treatment Clinical Notes Section Notes 07/06/2024 Acute cystitis without hematuria (ICD-10 - N30.00) Urinary Tract Infection (UTI) in Women: Care Instructions material was published, Diet for a Healthy Bladder: Care Instructions material was published Complete the entire course of antibiotics as prescribed, even when symptoms have improved, to prevent a relapse of infection and the development of antibiotic resistance. Follow up in the clinic or with PCP in 4-5 days if no improvement or worsening of symptoms. Specimen will be sent to outside lab and patient will receive third democrat bill from laboratory. Patient verbalized understanding and agrees to plan of care. Please avoid carbonated drinks and caffeine. They can irritate the bladder. Urinate often and try to empty the bladder each time. Avoid bubble baths as these cause irritation. For women: empty bladder after sexual relations, avoid using feminine hygiene products if possible as these can cause irritation. Call your PCP or return to the clinic if symptoms do not resolve in 3-5 days. Please seek immediate care at ER/UC if worsening symptoms or new symptoms including fever, nausea, vomiting, worsening urinary symptoms, chills, body aches, increased discomfort, groin or belly pain or discomfort, or back discomfort/pain just below rib cage (flank pain). For post-menopausal women: if symptoms do not resolve, consider follow up with [facility] for evaluation of alternative causes that can mimic symptoms of UTI. URINE CX: SECOND WATCH SERGEANT notified TLC will notify patient/parent with urine cx results. Negative results will be published to patient portal. TLC will call with positive results and will treat with antibiotic if indicated and If not prescribed at time of visit. Please take all medications as prescribed including antibiotic through completion to decrease the risk of developing antibiotic resistance. Follow up with PCP if any further concerns or complaints. Follow up with UC/ED if any worsening symptoms including fever and flank discomfort. Patient agreeable and verbalized understanding. All questions answered. Patient has been explained that specimen will be sent to outside lab and agrees to outside third democrat bill from laboratory. 08/03/2024 Screening for hypertension (ICD-10 - Z13.6) 08/03/2024 Screening for lipid disorders (ICD-10 - Z13.220) 08/03/2024 Screening for diabetes mellitus (ICD-10 - Z13.1) 07/06/2024 Other Sulfamethoxazole/ Trimethoprim Oral Tablet (SULFAMETHOXAZOLE /TRIMETHOPRIM- ORAL) material was published, Urine Culture: About This Test material was published Visit summary given to and discussed with patient and/or parent who verbalizes understanding and agreement with plan of care Thank you for your visit. Please look for the satisfaction survey that you will receive via email. We look forward to receiving your feedback regarding your experience at [facility]. 08/03/2024 Other Reviewed results of screening with patient as well as recommendations for lifestyle changes as appropriate. Patient expressed understanding. Reminder to document amount of time spent with patient on Biometric Screening and counseling of their results in the Preventative Medicine section. Plan Of Treatment No Information Insurance Providers Payer Name Payer Address Payer Phone Subscriber Number Group Number Insured Name Patient Relationship to Insured Coverage Start Date Coverage End Date [facility] [facility] [address] [place] [address] [id number] Driss Woodruff Self - patient is the insured Medical [place] [employer] [place] [address] [place] [address] [id number] Driss Woodruff Self - patient is the insured Medical (General) History Medical History History ICD Code Tachycardia R00.0 Surgical History Surgery Date(Month/Year) right shoulder surgery appendectomy endometriosis Hospitalization History Reason Date(Month/Year) surgeries childbirth
--- OUTSIDE RECORDS SUMMARY | 2025-05-04 10:53 | XMS_ITS | Encounter Summary ---
Author Organization [facility] Address [address] [place] [address] Care Team Providers Care Fisher Eel Name Role Phone Cruz Rodríguez MD Unavailable + 54 Cruz Rodríguez MD Primary Care Provider + Cruz Rodríguez MD Unavailable + 54 Zenobia [place] REFRIGERATOR ASSEMBLER Unavailable + Trista Thao REFRIGERATOR ASSEMBLER Unavailable +[phone] Eliceo Beltran DO Primary Care Provider +[phone] Eliceo Beltran DO Unavailable [phone] Encounter Details Date Type Department Care Team (Late st Contact Info) Description 09/17/2023 Abstract [facility] [address] [place] [address] Cruz Rodríguez MD [address] [place] [address] Social History Tobacco Use Types Packs/Day Years Used Date Smoking Tobacco: Never Smokeless Tobacco: Never Alcohol Use Standard Drinks/Week Comments Never 0 (1 standard drink = 0.6 oz pure alcohol) caffeine: 1-2 cups per day, coffee and pop Humiliation, Afraid, Rape, and Kick questionnair e [...] neighbors? More than three times a week 09/19/2023 How often do you get togethe r with friends or relatives? More than three times a week 09/19/2023 How often do you attend chur or episcopal services? Patient declined 09/19/2023 Do you belong to any clubs o r organizations such as temple groups, unions, fraternal or athletic groups, or school groups? No 09/19/2023 How often do you attend meet ings of the clubs or organizations you belong to? Never 09/19/2023 Are you , , di vorced, , never , or living with a partner? Living with partner 09/19/2023 AUDIT-C Answer Date Recorded Q1: How often do you have a drink containing alc ohol? Monthly or less 09/19/2023 Q2: How many drinks containi ng alcohol do you have on a typical day when you are drinking? 1 or 2 09/19/2023 Q3: How often do you have si x or more drinks on one occasion? Never 09/19/2023 Overall Financial Resource Strain (CARDIA) Answe r Date Recorded How hard is it for you to pa y for the very basics like food, housing, medical care, and heating? Not hard at all 09/19/2023 [facility] of Occupat ional Health - Occupational Stress Questionnaire Answer Date Recorded Do you feel stress - tense, restless, nervous, or anxious, or unable to sleep at night because your mind is troubled all the time - these days? Not at all 09/19/2023 Hunger Vital Sign Answer Date Recorded Within the past 12 months, y ou worried that your food would run out before you got the money to buy more. Never true 09/19/20 23 Within the past 12 months, t he food you bought just didn't last and you didn't have money to get more. Never true 09/19/2023 PRAPARE - Transportation Answer Date Re corded In the past 12 months, has l ack of transportation kept you from medical appointments or from getting medications? No 08/27 In the past 12 months, has l ack of transportation kept you from meetings, work, or from getting things needed for daily living? No 09/19/2023 Housing Stability Vital Sign Answer [...] place to sleep or slept in a halfway (including now)? 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 No / Unsure 09/19/2023 8:30 AM EDT documented as of this encounter Functional Status * Audit-C Score Answer Date of Assessment Author 1 09/19/2023 8:30 AM EDT Christine, Generic * Q1: How often do you have a drink containing alcohol? Answer Date of Assessment Author Monthly or less 09/19/2023 8:30 AM EDT Christine, Generic * Q2: How many drinks containing alcohol do you have on a typical day when you are drinking? Answer Date of Assessment Author 1 or 2 09/19/2023 8:30 AM EDT Christine, Generic * Q3: How often do you have six or more drinks on one occasion? Answer Date of Assessment Author Karen 09/19/2023 8:30 AM EDT Mychart, Generic documented as of this encounter Plan of Treatment Upcoming Encounters Date Type Department Care Team (Late st Contact Info) Description 05/25/2025 2:40 PM EDT Routine [facility] [address] [place] [id number] Nathan Pop, DO [address] [place] [place], [place] [id number] 09/07/2025 4:00 PM EDT Office Visit [facility] [address] [place] [address] Nathan Pop, DO [address] [place], [place] [id number] documented as of this encounter Visit Diagnoses Not on filedocumented in this encounter Care Teams Fisher Eel Relationship Specialty Start Date End Date Cruz Rodríguez MD [address] [place] [address] PCP - [facility] 09/26/2111/25 Cruz Rodríguez MD [address] [place] [address] PCP - General Family Medicine 04/10/23 02/13/24 Cruz Rodríguez MD [address] [place] [address] PCP - [facility] 02/24/23 4 Eliceo Beltran DO [address] [place] [address] PCP - General Family Medicine 02/14/24 Eliceo Beltran DO [address] [place] [address] PCP - Medical [employer] 07/27/24 11/25/99 Zenobia East NP [address] [place] [address] Nurse Practitioner Family Medicine 10/05/23 04/14/24 Trista Thao NP [address] [place] [address] Nurse Practitioner Pulmonary Disease 10/05/23 04/14/24 documented as of this encounter
--- OUTSIDE RECORDS SUMMARY | 2025-05-04 10:53 | XMS_ITS | Encounter Summary ---
Author Organization [facility] Address [address] [place] [address] Care Team Providers Care Scientific Research Associate Name Role Phone Cruz Rodríguez MD Unavailable + 54 Cruz Rodríguez MD Primary Care Provider + Cruz Rodríguez MD Unavailable + 54 Zenobia East SCOUTS Unavailable Trista Thao SCOUTS Unavailable +-[phone] Eliceo Beltran DO Primary Care Provider +[phone] Eliceo Beltran DO Unavailable [phone] Encounter Details Date Type Department Care Team (Late st Contact Info) Description 02/13/2024 Clinisync Result Encounter [facility] External Department Unsolicited Jony Pop DO [address] [place] [address] Social History Tobacco Use Types Packs/Day Years [...] week 09/19/2023 How often do you attend [facility] or [facility] services? Patient declined 09/19/2023 Do you belong to any clubs o r organizations such as mosque groups, unions, fraternal or athletic groups, or [...] and heating? Not hard at all 09/19/2023 PHQ-2 Answer Date Recorded Patient Health Questionnaire-2 Score 0 10/23/2023 [facility] [place] of Occupat ional Health - Occupational Stress [...] place to sleep or slept in a half-way (including now)? 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 on file Not on file documented as of this encounter Plan of Treatment Upcoming Encounters Date Type Department Care Team (Late st Contact Info) Description 05/25/2025 2:40 PM EDT Routine [facility] [address] [place] [address] Jony Pop, DO [address] [place] [address] 09/07/2025 4:00 PM EDT Office Visit [facility] OB [facility] [place] [address] Jony Pop, DO [address] [place] [address] documented as of this encounter Procedures Procedure Name Priority Date/Time Associated Diagnosis Comments ECG 12-LEAD 02/13/2024 2:55 PM EDT documented in this encounter Results * ECG 12-LEAD (02/13/2024 2:55 PM EDT) Anatomical Region Laterality Modality Other 02/13/2024 2:55 PM EDT Narrative 02/14/2024 6:50 [place] [address] Electrocardiograph Report Signed Patient: DRISS COPE MR#: [id number] : 1995 Acct:[id number] Age/Sex: 28 / F ADM Date: 02/13/24 Loc: [facility] Attending Dr: Jony Pop D.O. Ordering Physician: Jony Pop D.O. Date of Service: 02/13/24 Procedure(s): ECG 12 lead Accession Number(s): [id number] cc: [facility] Test Date: 2024-02-13 Pat Name: DRISS COPE Department: Room: - Gender: Female Circuit Design Engineer: : 1995 Requested By: JONY POP Order Number: [id number] Reading MD: RAMSEY ORDAZ Measurements Intervals [place] Rate: 86 P: 31 IN: 133 QRS: 20 QRSD: 89 T: 47 QT: 374 QTc: 449 Interpretive Statements SINUS RHYTHM No previous ECG available for comparison Electronically Signed On 02-14-2024 6:50:27 EDT by RAMSEY ORDAZ Dictated By: Ramsey Ordaz D.O. Signed By: 02/14/24 0650 DD/ 1455 TD/TT: News Reel Cameraman: Procedure Note Radiology, Radiologist, - 02/14/2024 [id number] Electrocardiograph Report Signed Patient: DRISS COPE MMR#: [id number] : 1995Acct:[id number] Age/Sex: 28 / FADM Date: 02/13/24 Loc: PST Attending Dr: Jony Pop D.O. Ordering Physician: Jony Pop D.O. Date of Service: 02/13/24 Procedure(s): ECG 12 lead Accession Number(s): [id number] cc: [facility] Test Date: 2024-02-13 Pat Name: DRISS COPE Department: Room: - Gender: Female Circuit Design Engineer: : 1995 Requested By: JONY POP Order Number: [id number] Reading MD: RAMSEY ORDAZ Measurements Intervals [place] Rate: 86 P: 31 IN: 133 QRS: 20 QRSD: 89 T: 47 QT: 374 QTc: 449 Interpretive Statements SINUS RHYTHM No previous ECG available for comparison Electronically Signed On 02-14-2024 6:50:27 EDT by RAMSEY ORDAZ Dictated By: Ramsey Ordaz D.O. Signed By:02/14/24 0650 DD/ 1455 TD/TT: News Reel Cameraman: us Jony Pop DO [facility] Final Result documented in this encounter Visit Diagnoses Not on filedocumented in this encounter Care Teams Scientific Research Associate Relationship Specialty Start Date End Date Cruz Rodríguez MD [address] [place] [address] [facility] 09/[facility]111[facility]25 Cruz Rodríguez MD [address] [place] [address] PCP - General Family Medicine 04/10/23 02/13/24 Cruz Rodríguez MD [address] [place] [address] PCP - [facility] 02/24/23 4 Eliceo Beltran DO [address] [place] [address] [address] [place] [address] PCP - General Family Medicine 02/14/24 Eliceo Beltran DO [address] [address] PCP - Medical [facility] 07/27/24 11/25/99 Zenobia East NP [address] [place] [address] Nurse Practitioner Family Medicine 10/05/23 04/14/24 Trista Thao NP [address] [place] [address] Nurse Practitioner Pulmonary Disease 10/05/23 04/14/24 documented as of this encounter
--- OUTSIDE RECORDS SUMMARY | 2025-05-04 10:53 | XMS_ITS | Encounter Summary ---
Author Organization [facility] Address [address] [facility] [place] [address] Care Team Providers Care Textile Knitter Name Role Phone Cruz Rodríguez MD Unavailable + 54 Cruz Rodríguez MD Primary Care Provider + Cruz Rodríguez MD Unavailable + 54 [place] BOARD SAW RUNNER Unavailable Trista Thao BOARD SAW RUNNER Unavailable +-[phone] Eliceo Beltran DO Primary Care Provider +1200 Eliceo Beltran DO Unavailable +[phone] Encounter Details Date Type Department Care Team (Late st Contact Info) Description 01/15/2024 Clinisync Result Encounter [facility] External Department Unsolicited Jony Pop DO [address] [facility] [place] [address] Social History Tobacco Use Types Packs/Day Years [...] week 09/19/2023 How often do you attend [facility] or christian services? Patient declined 09/19/2023 Do you belong to any clubs o r organizations such as latter day groups, unions, fraternal or athletic groups, or [...] Recorded Patient Health Questionnaire-2 Score 0 10/23/2023 [facility] [place] of Occupat ional Health - Occupational Stress [...] place to sleep or slept in a chcf (including now)? 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 on file Not on file documented as of this encounter Plan of Treatment Upcoming Encounters Date Type Department Care Team (Late st Contact Info) Description 05/25/2025 2:40 PM EDT Routine [facility] OB [address] [place] [address] Jony Pop, DO [address] [place] [address] 09/07/2025 4:00 PM EDT Office Visit [facility] OB [facility] [place] [address] Jony Pop, DO [address] [place] [address] (work) documented as of this encounter Procedures Procedure Name Priority Date/Time Associated Diagnosis Comments US PELVIS W/ TRANSVAGINAL 01/15/2024 11:42 AM EST documented in this encounter Results * US PELVIS W/ TRANSVAGINAL (01/15/2024 11:42 AM EST) Anatomical Region Laterality Modality Other 01/15/2024 11:4 2 AM EST Narrative 01/15/2024 11:44 AM EST [address] [address] Ultrasound Report Signed Patient: DRISS COPE MR#: [id number] : 1995 Acct:[id number] Age/Sex: 28 / F ADM Date: 01/15/24 Loc: [facility] Attending Dr: Jony Pop D.O. Ordering Physician: Jony Pop D.O. Date of Service: 01/15/24 Procedure(s): US pelvis w/ transvaginal Accession Number(s): [id number] cc: Jony Pop D.O.; Physician,Non-Staff Katherine The [address] [address] Patient Name: DRISS COPE MRN: [id number] date: 1995 Sex: F Assigned Patient Location: [facility] Current Patient Location: [facility] Accession/Order Number: [id number] Exam Date: 01/15/2024 07:57 Report Date: 01/15/2024 11:42 At the request of: JONY POP Procedure: US pelvis w/ transvaginal EXAMINATION: US pelvis w/ transvaginal HISTORY: PELVIC PAIN COMPARISON: No relevant comparison available. TECHNIQUE: Transabdominal and/or transvaginal sonographic examination was performed as indicated by examination type. FINDINGS: UTERUS: Normal size and appearance. Uterus size: 7.3 x 3.1 x 4.4 cm ENDOMETRIUM: Normal homogeneous appearance. Endometrial thickness: 3 mm RIGHT OVARY: Normal size and appearance. Duplex Doppler demonstrates normal waveform and flow; resistive index 0.6. Ovary size: 2.5 x 1.3 x 2.7 cm LEFT OVARY: Normal size and appearance. Duplex Doppler demonstrates normal waveform and flow; resistive index 0.6. Ovary size: 3.6 x 1.2 x 2.3 cm CUL-DE-SAC: Unremarkable. No significant free fluid. BLADDER: Unremarkable. OTHER: None. US/US pelvis w/ transvaginal IMPRESSION: 1. Normal pelvic ultrasound. No suspicious findings to account for patient's symptoms. Electronically authenticated by: TASHI SANTIZO Date: 01/15/2024 11:42 Dictated By: Tashi Santizo M.D. Signed By: 01/15/24 1144 DD/ 1142 TD/TT: Satellite Dish Technician: Procedure Note Radiology, Radiologist, MD - 01/15/2024 [place] [address] Ultrasound Report Signed Patient: DRISS COPE MMR#: [id number] : 1995Acct:[id number] Age/Sex: 28 / FADM Date: 01/15/24 Loc: [facility] Attending Dr: Jony Pop D.O. Ordering Physician: Jony Pop D.O. Date of Service: 01/15/24 Procedure(s): US pelvis w/ transvaginal Accession Number(s): [id number] cc: Jony Pop D.O.; Physician,Non-Staff Katherine The [place] [id number] Patient Name: DRISS COPE MRN: [id number] date: 1995 Sex: F Assigned Patient Location: [facility] Current Patient Location: [facility] Accession/Order Number: [id number] Exam Date: 01/15/2024 07:57 Report Date: 01/15/2024 11:42 At the request of: JONY POP Procedure: US pelvis w/ transvaginal EXAMINATION: US pelvis w/ transvaginal HISTORY: PELVIC PAIN COMPARISON: No relevant comparison available. TECHNIQUE: Transabdominal and/or transvaginal sonographic examination was performed as indicated by examination type. FINDINGS: UTERUS: Normal size and appearance. Uterus size: 7.3 x 3.1 x 4.4 cm ENDOMETRIUM: Normal homogeneous appearance. Endometrial thickness: 3 mm RIGHT OVARY: Normal size and appearance. Duplex Doppler demonstratesnormal waveform and flow; resistive index 0.6. Ovary size: 2.5 x 1.3 x 2.7 cm LEFT OVARY: Normal size and appearance. Duplex Doppler demonstrates normal waveform and flow; resistive index 0.6. Ovary size: 3.6 x 1.2 x 2.3 cm CUL-DE-SAC: Unremarkable. No significant free fluid. BLADDER: Unremarkable. OTHER: None. US/US pelvis w/ transvaginal IMPRESSION: 1. Normal pelvic ultrasound. No suspicious findings to account forpatient's symptoms. Electronically authenticated by: TASHI SANTIZO Date: 01/15/2024 11:42 Dictated By: Tashi Santizo M.D. Signed By:01/15/24 1144 DD/ 1142 TD/TT: Satellite Dish Technician: us Jony Kiesha DO [facility] Final Result documented in this encounter Visit Diagnoses Not on filedocumented in this encounter Care Teams Textile Knitter Relationship Specialty Start Date End Date Cruz Rodríguez MD [address] [place] [address] PCP - [facility] 09/26/2111/25 Cruz Rodríguez MD [address] [place] [address] PCP - General Family Medicine 04/10/23 02/13/24 Cruz Rodríguez MD [address] [place] [address] PCP - [facility] 02/24/23 4 Eliceo Beltran DO [address] [place] [address] PCP - General Family Medicine 02/14/24 Eliceo Beltran DO [address] [place] [address] PCP - Medical [place] [employer] 07/27/24 11/25/99 [place] NP [address] [place] [address] Nurse Practitioner Family Medicine 10/05/23 04/14/24 Trista Thao NP [address] [place] [address] Nurse Practitioner Pulmonary Disease 10/05/23 04/14/24 documented as of this encounter
--- OUTSIDE RECORDS SUMMARY | 2025-05-04 10:54 | XMS_ITS | Encounter Summary ---
Author Organization [facility] Address [address] [facility] [place] [address] Care Team Providers Care Undercover Agent Name Role Phone Cruz Rodríguez MD Unavailable + 54 Cruz Rodríguez MD Primary Care Provider + Cruz Rodríguez MD Unavailable + 54 [place] MECHANISM INSPECTOR Unavailable + Trista Thao MECHANISM INSPECTOR Unavailable +-[phone] Eliceo Beltran DO Primary Care Provider +1200 Eliceo Beltran DO Unavailable +[phone] Encounter Details Date Type Department Care Team (Late st Contact Info) Description 05/23/2023 Abstract [facility] [address] [facility] [address] [place] [phone] Briana Robles LPN [address] [facility] [place] [address] [place] [phone] Social History Tobacco Use Types Packs/Day Years [...] 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 No / Unsure 04/25/2023 8:36 AM EDT documented as of this encounter Plan of Treatment Upcoming Encounters Date Type Department Care Team (Late st Contact Info) Description 05/25/2025 2:40 PM EDT Routine [facility] OB [address] [facility] [place] [phone] Nathan Pop, [address] [place] [address] 09/07/2025 4:00 PM EDT Office Visit [facility] OB [address] [facility] [place] [address] Nathan Pop, DO [address] [place] [address] [place] [address] documented as of this encounter Visit Diagnoses Not on filedocumented in this encounter Care Teams Undercover Agent Relationship Specialty Start Date End Date Cruz Rodríguez MD [address] [place] [address] PCP - [place] [employer] 09/26/2111/25 Cruz Rodríguez MD [address] [place] [address] PCP - General Family Medicine 04/10/23 02/13/24 Cruz Rodríguez MD [address] [place] [address] PCP - [facility] 02/24/23 4 Eliceo Beltran DO [address] [place] [address] PCP - General Family Medicine 02/14/24 Eliceo Beltran DO [address] [place] [address] PCP - Medical [place] [employer] 07/27/24 11/25/99 [place] NP [address] [place] [address] Nurse Practitioner Family Medicine 10/05/23 04/14/24 Trista Thao NP [address] [place] [address] Nurse Practitioner Pulmonary Disease 10/05/23 04/14/24 documented as of this encounter
--- OUTSIDE RECORDS SUMMARY | 2025-05-04 10:54 | XMS_ITS | Encounter Summary ---
Author Organization [facility] Address [address] [facility] [place] [address] Care Team Providers Care Er Medical Technician Name Role Phone Cruz Rodríguez MD Unavailable + 54 Cruz Rodríguez MD Primary Care Provider + Cruz Rodríguez MD Unavailable + 54 [place] GLUELINE WORKER Unavailable + Trista Thao GLUELINE WORKER Unavailable +-[phone] Eliceo Beltran DO Primary Care Provider + Eliceo Beltran DO Unavailable [phone] Encounter Details Date Type Department Care Team (Late st Contact Info) Description 04/23/2023 Abstract [facility] [address] [place] [address] Cruz Rodríguez MD [address] [place] [address] Social History Tobacco Use Types Packs/Day Years Used Date Smoking Tobacco: Never Tobacco Cessation:Counseling Given: Not Answered [...] 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 No / Unsure 04/25/2023 8:36 AM EDT documented as of this encounter Plan of Treatment Upcoming Encounters Date Type Department Care Team (Late st Contact Info) Description 05/25/2025 2:40 PM EDT Routine [facility] OB [address] [facility] [place] [phone] Nathan Pop, [address] [place] [address] 09/07/2025 4:00 PM EDT Office Visit [facility] OB [address] [facility] [place] [address] Nathan Pop, [address] [place] [address] documented as of this encounter Visit Diagnoses Not on filedocumented in this encounter Care Teams Er Medical Technician Relationship Specialty Start Date End Date Cruz Rodríguez MD [address] [place] [address] PCP - [place] [employer] 09/26/2111/25 Cruz Rodríguez MD [address] [place] [address] PCP - General Family Medicine 04/10/23 02/13/24 Cruz Rodríguez MD [address] [place] [address] PCP - [facility] 02/24/23 4 Eliceo Beltran DO [address] [place] [address] PCP - General Family Medicine 02/14/24 Eliceo Beltran DO [address] [place] [address] PCP - Medical [place] [employer] 07/27/24 11/25/99 [place] NP [address] [place] [address] Nurse Practitioner Family Medicine 10/05/23 04/14/24 Trista Thao NP [address] [place] [address] Nurse Practitioner Pulmonary Disease 10/05/23 04/14/24 documented as of this encounter
--- OUTSIDE RECORDS SUMMARY | 2025-05-04 10:54 | XMS_ITS | Encounter Summary ---
Author Organization [facility] Address [address] [place] [address] Care Team Providers Care River Tester Name Role Phone NirajEliceo kauffman Primary Care Provider [phone] Ruby Eliceo Hurtado DO Unavailable [phone] Encounter Details Date Type Department Care Team (Late st Contact Info) Description 03/16/2025 Abstract [facility] OB [address] [place] [address] Nathan Pop, DO [address] [facility] [address] [place], [facility] Social History Tobacco Use Types Packs/Day Years [...] How often do you attend chur or confucianist services? Patient declined 12/29/2024 Do you belong to any clubs o r organizations such as sikhism groups, unions, fraternal or athletic groups, or [...] Recorded Patient Health Questionnaire-2 Score 0 12/30/2024 [facility] of Occupat ional Health - Occupational [...] money to buy more. Never true 12/29/19 Within the past 12 months, t he [...] place to sleep or slept in a fdc (including now)? No 09/19/2023 Housing Stability Vital Sign Answer Kang e Recorded In the last 12 months, was t here a time when you were not able to pay the mortgage or rent on time? No 12/29/2024 Number of Times Moved in the Last Year Not on fi le 12/29/2024 At any time in the past 12 m [facility], were you homeless or living in a fdc (including now)? 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 on file Not on file documented as of this encounter Plan of Treatment Upcoming Encounters Date Type Department Care Team (Late st Contact Info) Description 05/25/2025 2:40 PM EDT Routine [facility] OB [address] [place] [address] [place] [address] Nathan Pop, DO [address] [facility] [place] [address] 09/07/2025 4:00 PM EDT Office Visit [facility] OB [address] [facility] [place] [address] Nathan Pop, DO [address] [facility] [place] [address] documented as of this encounter Visit Diagnoses Not on filedocumented in this encounter Care Teams River Tester Relationship Specialty Start Date End Date Eliceo Beltran DO [address] [place] [address] PCP - General Family Medicine 02/14/24 Eliceo Beltran DO [address] [place] [address] PCP - Medical [place] [employer] 07/27/24 11/25/99 documented as of this encounter
--- OUTSIDE RECORDS SUMMARY | 2025-05-04 10:54 | XMS_ITS | Encounter Summary ---
Author Organization [facility] Address [address] [facility] [place] [address] Care Team Providers Care Turret Lathe Operator Name Role Phone Cruz Rodríguez MD Unavailable + 54 Cruz Rodríguez MD Primary Care Provider + Cruz Rodríguez MD Unavailable + 54 [place] MAGICIAN HELPER Unavailable Trista Thao MAGICIAN HELPER Unavailable +[phone] Eliceo Beltran DO Primary Care Provider +[phone] Eliceo Beltran DO Unavailable [phone] Encounter Details Date Type Department Care Team (Late st Contact Info) Description 07/24/2023 Abstract [facility] [address] [facility] [address] [place] [address] Kellee Starkey LPN Social History Tobacco Use Types Packs/Day Years [...] 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 Not on file documented as of this encounter Plan of Treatment Upcoming Encounters Date Type Department Care Team (Late st Contact Info) Description 05/25/2025 2:40 PM EDT Routine [facility] B[facility] OB [address] [facility] [place] [address] Nathan Pop, DO [address] [place], [place] [address] 09/07/2025 4:00 PM EDT Office Visit [facility] OB [address] [facility] [place] [place] [address] Nathan Pop, DO [address] [place], [place] [address] documented as of this encounter Visit Diagnoses Not on filedocumented in this encounter Care Teams Turret Lathe Operator Relationship Specialty Start Date End Date Cruz Rodríguez MD [address] [place] [id number] PCP - [facility] 09/26/2111/25 Cruz Rodríguez MD [address] [place] [id number] PCP - General Family Medicine 04/10/23 02/13/24 Cruz Rodríguez MD [address] [place] [id number] PCP - [facility] 02/24/23 4 Eliceo Beltran DO [address] [facility] [address] [place] [address] PCP - General Family Medicine 02/14/24 Eliceo Beltran DO [address] [place] [address] PCP - Medical [place] [employer] 07/27/24 11/25/99 [place] NP [address] [place] [address] Nurse Practitioner Family Medicine 10/05/23 04/14/24 Trista Thao NP [address] [place] [address] Nurse Practitioner Pulmonary Disease 10/05/23 04/14/24 documented as of this encounter
--- OUTSIDE RECORDS SUMMARY | 2025-05-04 10:54 | XMS_ITS | Encounter Summary ---
Author Organization [facility] Address [address] [facility] [place] [address] Care Team Providers Care Bearing Machine Operator Name Role Phone RubyEliceo Bryant DAY Primary Care Provider [phone] CharlottecarolEliceo Bryant DAY Unavailable [phone] Encounter Details Date Type Department Care Team (Latest Contact Info) Description 04/24/2025 Travel Social History Tobacco Use Types Packs/Day Years [...] 12/29/2024 How often do you attend chur ch or judaism services? Patient declined 12/29/2024 Do you belong to any clubs o r organizations such as scientologist groups, unions, fraternal or athletic groups, or [...] Recorded Patient Health Questionnaire-2 Score 0 12/30/2024 [facility] of Occupat ional Health - Occupational Stress [...] place to sleep or slept in a mcc (including now)? No 09/19/2023 Housing Stability Vital Sign Answer Kang e Recorded In the last 12 months, was t here a time when you were not able to pay the mortgage or rent on time? No 12/29/2024 Number of Times Moved in the Last Year Not on fi le 12/29/2024 At any time in the past [address] [facility], were you homeless or living in a mcc (including now)? 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 [place] [address] documented as of this encounter Visit Diagnoses Not on filedocumented in this encounter Care Teams Bearing Machine Operator Relationship Specialty Start Date End Date Eliceo Beltran DO [address] [facility] 230 [place] [address] PCP - General Family Medicine 02/14/24 Eliceo Beltran DO [address] [facility] [address] [place] [address] PCP - Medical [place] [employer] 07/27/24 11/25/99 documented as of this encounter
--- OUTSIDE RECORDS SUMMARY | 2025-05-04 10:54 | XMS_ITS | Clinical Summary ---
Author Organization [facility] Address [address] [facility] [place] [address] Care Team Providers Care Spark Tester Name Role Phone Eliceo Beltran DO Primary Care Provider [phone] Eliceo Beltran DO Unavailable [phone] Allergies No known active allergies Medications metoprolol succinate XL (Toprol-XL) 25 MG 24 hr tabletIndications :Hypertension, unspecified type (CMS/HCC) Take 1 tablet by mouth daily 90 tablet 1 12/30/19 25 Active Vit-Fe Fumarate-FA ( Vitamins) 28-0.8 MG tabletIndications :, unspecified gestational age,Encounter for supervision of normal first in first trimester Take 1 tablet by mouth Daily 30 tablet 11 05/01/20 25 026 Active magnesium oxide (Mag-Ox) 400 MG tabletIndications : headache in first trimester Take 1 tablet (400 mg) by mouth Daily 30 tablet 3 05/01/20 25 025 Active butalbital-acetam inophen-caffeine 50-325-40 MG tabletIndications :Other migraine without status migrainosus, not intractable Take 1 tablet by mouth every 6 (six) hours if needed for headaches 20 tablet 02/19/20 24 025 Discontinued meloxicam (Mobic) 15 MG tabletIndications :Chronic right shoulder pain,Scapular dyskinesis Take 1 tablet (15 mg) by mouth Daily 30 tablet 3 12/30/19 25 025 Discontinued ondansetron ODT (Zofran-ODT) 4 MG disintegrating tabletIndications :Nausea and vomiting in Take 1 tablet (4 mg) by mouth every 6 (six) hours if needed for nausea or vomiting 30 tablet 2 03/23/20 25 025 Active Problems Problem Noted Date Diagnosed Date Diarrhea 03/24/2025 Tachycardia 02/19/2024 Obesity (BMI 30-39.9) 02/19/2024 Acquired equinus deformity of foot 03/29/2023 Displacement of cervical int ervertebral disc without myelopathy 03/29/2023 Dysmenorrhea 03/29/2023 Endometriosis 03/29/2023 Gastroparesis 03/29/2023 Hypertension 03/29/2023 Intractable migraine without aura and with status migrainosus 03/29/2023 Migraines 03/29/2023 Chronic pelvic pain in female 03/29/2023 Pain in female genitalia on intercourse 03/29/20 23 Pain on swallowing 03/29/2023 Panic disorder 03/29/2023 Patellofemoral disorders, left knee 03/29/2023 Patellofemoral disorders, right knee 03/29/2023 Posterior calcaneal exostosis 03/29/2023 Scapular dyskinesis 03/29/2023 Scoliosis 03/29/2023 Seasonal allergic rhinitis due to pollen 023 Tachycardia, paroxysmal 03/29/2023 Tension headache 03/29/2023 Vitamin B12 deficiency 03/29/2023 Vitamin D deficiency 03/29/2023 Chronic right shoulder pain 03/29/2023 Estimated Date of Delivery Comme nts Yes 11/28/2025 Based on last me nstrual period of 02/21/2025 Encounters Date Type Department Care Team Description 05/01/2025 9:00 AM EDT Initial [facility] [address] [facility] [address] [place]: 9w6d 05/01/2025 Clinisync Result Encounter [facility] External Department Unsolicited Jony Pop DO 04/24/2025 Travel 03/24/2025 Telephone [facility] [address] [facility] [place] [address] Candis Yanes LPN 03/23/2025 Telephone [facility] OB [address] [facility] [place] [address] Radha Rahman MA 03/16/2025 Abstract [facility] OB [address] [place] [address] [place] [address] Jony Pop, 02/24/2025 Telephone [facility] OB [address] [facility] [place] [address] Candis Yanes LPN 02/19/2025 Telephone [facility] OB [address] [place] [address] [place] [address] Jony Pop, DO 02/04/2025 Telephone [facility] OB [address] [facility] [place] [address] Candis Yanes, GODFREY from Last 3 Months Immunizations Immunization Administration Dates Next Due DTP / HiB 08/01/1996,1995,1995 DTaP, Unspecified 05/03/2000,12/29/1997 HPV, Quadrivalent 09/11/2014,05/04/2014,03/03/20 14 Hep A, Adult 09/11/2014,2014 Hep B, Adolescent or Pediatric 08/01/1996,1995,1995 IPV 05/03/2000 Influenza, seasonal, injecta ble, preservative free 09/11/2014 MMR 05/03/2000,08/01/1996 Meningococcal MCV4P 04/03/2007 OPV 08/01/1996,1995,1995 Tdap 2014 Family History Medical History Relation Name Comments Anemia Father Colon cancer Father Cancer Maternal Grandfather [place] Hypertension Maternal Grandfather [place] Breast cancer Maternal Grandmother Hypertension Mother dayanna Colon cancer Paternal Grandfather Relation Name Status Comments Father Maternal Grandfather [place] Maternal Grandmother Mother dayanna Alive Paternal Grandfather Paternal Grandmother Alive Social History Tobacco Use Types Packs/Day Years [...] How often do you attend chur or samaritan services? Patient declined 12/29/2024 Do you belong to any clubs o r organizations such as oriental orthodox groups, unions, fraternal or athletic groups, or [...] Recorded Patient Health Questionnaire-2 Score 0 12/30/2024 [facility]at ional [facility] - [...] place to sleep or slept in a group home (including now)? No 09/19/2023 Housing Stability Vital Sign Answer Kang e Recorded In the last 12 months, was t here a time when you were not able to pay the mortgage or rent on time? No 12/29/2024 Number of Times Moved in the Last Year Not on fi le 12/29/2024 At any time in the past 12 m [facility], were you homeless or living in a group home (including now)? 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 file Not on file Last Filed Vital Signs Vital Sign Reading Time Taken Comments Blood Pressure 122/78 01/19/2025 3:08 PM EST Pulse 51 12/30/2024 3:53 PM EST Temperature 36.2 C (97.1 F) 12/30/2024 3:53 PM EST Respiratory Rate 16 10/23/2023 4:16 PM EST Oxygen Saturation 98% 12/30/2024 3:53 PM EST Inhaled Oxygen Concentration - - Weight 63.7 kg (140 lb 6.4 oz) 05/01/2025 10:29 AM EDT Height 157.5 cm (5' 2 ) 12/30/2024 3:53 PM EST Body Mass Index 25.68 12/30/2024 3:53 PM EST Plan of Treatment Upcoming Encounters Date Type Department Care Team (Late st Contact Info) Description 05/25/2025 2:40 PM EDT Routine [facility] OB [address] [facility] [place] [address] Jony Pop, DO [address] [place] [address] 09/07/2025 4:00 PM EDT Office Visit [facility] OB [address] [place] [address] Jony Pop, [facility] [address] [place], [place] [id number] Health Maintenance Due Date Last Done Comments Influenza Vaccine (Season Ended) 2025 09/11/20 14 Pap Smear 08/18/2027 08/18/2024, 07/28, 06/20/2022, Additional history exists Cervical Cancer Screening 09/03/2028 HPV/Cotest 09/03/2028 09/03/2023 Procedures Procedure Name Priority Date/Time Associated Diagnosis Comments POCT URINALYSIS DIPSTICK Routine 05/01/2025 10:31 AM EDT Missed menses POCT , URINE Routine 05/01/2025 10:31 AM EDT Missed menses US OB TRANSVAGINAL 05/01/2025 9: 01 AM EDT PAP SMEAR Routine 08/18/2024 12:00 AM EDT THINPREP PAP AND HPV MRNA E6/E7 W/RFL HPV 16,18/45 Routine 09/03/2023 4:00 PM EDT Well woman exam with routine gynecological exam from Last 3 Months or Most Recently Relevant to Health Maintenance Results * (ABNORMAL) POCT , urine manually resulted (05/01/2025 10:31 AM EDT) Preg Test, Ur Positive Negative Urine 05/01/2025 10:3 1 AM EDT Jony Pop DO POINT OF CARE TEST ENTER/EDIT OR DERABLES Final Result * POCT urinalysis dipstick manually resulted (05/01/2025 10:31 AM EDT) Color, UA Yellow Clarity, UA Clear Glucose, UA Negative Negative - 2000(110) ++++ mg/dL Bilirubin, UA Negative Negative - [...] Positive Urine 05/01/2025 10:3 1 AM EDT us Jony Pop DO POINT OF CARE TEST ENTER/EDIT OR DERABLES Final Result * US OB TRANSVAGINAL (05/01/2025 9:01 AM EDT) Anatomical Region Laterality Modality Other 05/01/2025 9:01 AM EDT Narrative 05/01/2025 9:04 [place] [address] Ultrasound Report Signed Patient: DRISS COPE MR#: [id number] : 1995 Acct:[id number] Age/Sex: 30 / F ADM Date: 05/01/25 Loc: US Attending Dr: Jony Pop D.O. Ordering Physician: Jony Pop D.O. Date of Service: 05/01/25 Procedure(s): US OB transvaginal Accession Number(s): [id number] cc: Jony Pop D.O.; Physician,Non-Staff [place] [id number] Patient Name: DRISS COPE MRN: [id number] date: 1995 Sex: F Assigned Patient Location: US Current Patient Location: US Accession/Order Number: [id number] Exam Date: 05/01/2025 08:57 Report Date: 05/01/2025 09:01 At the request of: JONY POP DO Procedure: US OB transvaginal US OB transvaginal 05/01/2025 8:51 AM SIGNS AND SYMPTOMS: Missed Menses, Positive COMPARISON: None. TECHNIQUE: Limited pelvic ultrasound using transvesical sonography. FINDINGS: An early intrauterine is identified. The visualized pole has an estimated gestational age of 9 weeks and 2 days by crown-rump length which measures 2.52 cm . A heart rate is identified at 166 bpm. A normal amount of amniotic fluid is present. There is a small crescentic area of hypoattenuation adjacent to a placenta measuring 1.6 x 0.9 x 0.4 cm suggesting implantation hemorrhage. Pelvic survey reveals no gross abnormalities. A presumed corpus luteum cyst is noted in the right adnexa. US/US OB transvaginal IMPRESSION: Single live IUP with an estimated gestational age of 9 weeks and 2 days with a normal heart rate. There is a small crescentic area of hypoattenuation adjacent to a placenta measuring 1.6 x 0.9 x 0.4 cm suggesting implantation hemorrhage. Impression dictated by: Will Faria M.D. 05/01/2025 9:01 AM Dictation Location: [place] [address] Electronically authenticated by: [id number] Y Date: 05/01/2025 09:01 Dictated By: Will Faria M.D. Signed By: 05/01/25903 DD/ 0 TD/TT: Metallographic Technician: Procedure Note Radiology, Radiologist, MD - 05/01/2025 [place] [address] Ultrasound Report Signed Patient: DRISS COPE MMR#: [id number] : 1995Acct:[id number] Age/Sex: 30 / FADM Date: 05/01/25 Loc: US Attending Dr: Jony Pop D.O. Ordering Physician: Jony Pop D.O. Date of Service: 05/01/25 Procedure(s): US OB transvaginal Accession Number(s): [id number] cc: Jony Pop D.O.; Physician,Non-Staff [place] [id number] Patient Name: DRISS COPE MRN: [id number] date: 1995 Sex: F Assigned Patient Location: US Current Patient Location: US Accession/Order Number: [id number] Exam Date: 05/01/2025 08:57 Report Date: 05/01/2025 09:01 At the request of: JONY POP DO Procedure: US OB transvaginal US OB transvaginal 05/01/2025 8:51 AM SIGNS AND SYMPTOMS: Missed Menses, Positive COMPARISON: None. TECHNIQUE: Limited pelvic ultrasound using transvesical sonography. FINDINGS: An early intrauterine is identified. The visualized polehas an estimated gestational age of 9 weeks and 2 days by crown-rump lengthwhich measures 2.52 cm . A heart rate is identified at 166 bpm. A normal amountof amniotic fluid is present. There is a small crescentic area of hypoattenuation adjacent to a placenta measuring 1.6 x 0.9 x 0.4 cmsuggesting implantation hemorrhage. Pelvic survey reveals no gross abnormalities. A presumed corpus luteumcyst is noted in the right adnexa. US/US OB transvaginal IMPRESSION: Single live IUP with an estimated gestational age of 9 weeks and 2 dayswith a normal heart rate. There is a small crescentic area of hypoattenuation adjacent to a placenta measuring 1.6 x 0.9 x 0.4 cm suggesting implantation hemorrhage. Impression dictated by: Will Faria M.D. 05/01/2025 9:01 AM Dictation Location: [place] [address] Electronically authenticated by: [id number] Y Date: 9:01 Dictated By: Will Faria M.D. Signed By:05/01/2504 DD/ 0 TD/TT: Metallographic Technician: Jony Pop DO [facility] Final Result * Pap Smear (08/18/2024 12:00 AM EDT) Swab Cervical swab / Unknown us [facility] Ob Kiesha Nurse LAB CYTOLOGY ORDERABLES Final Result EXTERNAL LAB * THINPREP PAP AND HPV MRNA E6/E7 W/RFL HPV 16,18/45 (09/03/2023 4:00 PM EDT) us [facility] LAB BLOOD ORDERABLES Final Resul t EXTERNAL LAB from Last 3 Months or Most Recently Relevant to Health Maintenance Insurance [employer] Care Teams Spark Tester Relationship Specialty Start Date End Date Eliceo Beltran DO [address] [address] PCP - General Family Medicine 02/14/24 Eliceo Beltran DO [address] [facility] [address] [place] [address] PCP - Medical [place] [employer] 07/27/24 11/25/99
--- OUTSIDE RECORDS SUMMARY | 2025-05-04 10:54 | XMS_ITS | Encounter Summary ---
Author Organization [facility] Address [address] [place] [address] Care Team Providers Care Cellophane Tester Name Role Phone Cruz Rodríguez MD Unavailable + 54 Cruz Rodríguez MD Primary Care Provider + Cruz Rodríguez MD Unavailable + 54 [place] HYSTER DRIVER Unavailable + Trista Thao HYSTER DRIVER Unavailable [phone] Eliceo Beltran DO Primary Care Provider +[phone] Eliceo Beltran DO Unavailable [phone] Encounter Details Date Type Department Care Team (Late Contact Info) Description 06/12/2023 Clinisync Result Encounter [facility] External Department Unsolicited Provider, Generic External Data Social History Tobacco Use Types Packs/Day Years [...] 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 file Not on file documented as of this encounter Plan of Treatment Upcoming Encounters Date Type Department Care Team (Late Contact Info) Description 05/25/2025 2:40 PM EDT Routine [facility] OB [address] [place] [address] Nathan Pop, DO [address] [place] [address] 09/07/2025 4:00 PM EDT Office Visit [facility] OB [address] [place] [place] [address] Nathan Pop, DO [address] [place], [place] [address] [place] [address] documented as of this encounter Procedures Procedure Name Priority Date/Time Associated Diagnosis Comments MRI FEMALE PELVIS WO/W IVCON 06/12/2023 2:47 PM EDT documented in this encounter Results * MRI FEMALE PELVIS WO/W IVCON (06/12/2023 2:47 PM EDT) Anatomical Region Laterality Modality Other 06/12/2023 2:47 PM EDT Narrative 06/12/2023 4:53 PM EDT * * *Final Report* * * DATE OF EXAM: Jun 12 2023 2:47PM [facility] 0713 - MRI FEMALE PELVIS WO/W IVCON [...] additional findings. IMPRESSION: No deep infiltrating endometriosis. Paperhanger Pipe: DAVID Transcribe Date/Time: Jun 12 2023 2:54P Dictated by : ASHLEY DUKE MD This examination was interpreted and the report reviewed and electronically signed by: SONIDO FLAHERTY MD on Jun 12 2023 4:51PM EST [id number]^SI^ACN Procedure Note Radiology, Radiologist, - 06/13/2023 * * *Final Report* * * DATE OF EXAM: Jun 12 2023 2:47PM [facility] 0713 - MRI FEMALE PELVIS WO/W IVCON [...] additional findings. IMPRESSION: No deep infiltrating endometriosis. Paperhanger Pipe: DAVID Transcribe Date/Time: Jun 12 2023 2:54P Dictated by : ASHLEY DUKE MD This examination was interpreted and the report reviewed and electronically signed by: SONIDO FLAHERTY MD on Jun 12 2023 4:51PM EST [id number]^AGFA_[id number]^SI^ACN us Generic External Data Provider [facility] Final Result documented in this encounter Visit Diagnoses Not on filedocumented in this encounter Care Teams Cellophane Tester Relationship Specialty Start Date End Date Cruz Rodríguez MD [address] [place] [address] PCP - [place] [employer] 09/26/2111/25 Cruz Rodríguez MD [address] [place] [address] PCP - General Family Medicine 04/10/23 02/13/24 Cruz Rodríguez MD [address] [place] [address] PCP - [facility] 02/24/23 4 Eliceo Beltran DO [address] [place] [address] [place] [address] PCP - General Family Medicine 02/14/24 Eliceo Beltran DO [address] [place] [address] [place] [address] PCP - Medical [place] [employer] 07/27/24 11/25/99 [facility] [place] NP [address] [place] [address] Nurse Practitioner Family Medicine 10/05/23 04/14/24 Trista Thao NP [address] [place] [address] Nurse Practitioner Pulmonary Disease 10/05/23 04/14/24 documented as of this encounter
--- OUTSIDE RECORDS SUMMARY | 2025-05-04 10:54 | XMS_ITS | Encounter Summary ---
Author Organization [facility] Address [address] [place] [address] Care Team Providers Care Chief Crna Name Role Phone Cruz Rodríguez MD Unavailable + 54 Cruz Rodríguez MD Unavailable + 54 Eliceo Beltran DO Primary Care Provider +[phone] Eliceo Beltran DO Unavailable + [phone] Encounter Details Date Type Department Care Team (Late st Contact Info) Description 08/25/2024 Orders Only [facility] OB [address] [place] [address] Virgen Steen LPN [address] [place] [address] Social History Tobacco Use Types Packs/Day Years [...] 09/19/2023 How often do you attend chur ch or church services? Patient declined 09/19/2023 Do you belong to any clubs o r organizations such as mu-ism groups, unions, fraternal or athletic groups, or [...] Date Recorded Patient Health Questionnaire-2 Score 0 02/19/2024 [facility] Occupat ional Health - [...] place to sleep or slept in a intermediate (including now)? 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 on file Not on file documented as of this encounter Plan of Treatment Upcoming Encounters Date Type Department Care Team (Late st Contact Info) Description 05/25/2025 2:40 PM EDT Routine [facility] OB [address] [place] [address] Nathan Pop, [address] [place] [address] 09/07/2025 4:00 PM EDT Office Visit [facility] OB [address] [place] [address] Nathan Pop, [address] [place], [place] [address] documented as of this encounter Procedures Procedure Name Priority Date/Time Associated Diagnosis Comments PAP SMEAR Routine 08/18/2024 12:00 AM EDT documented in this encounter Results * Pap Smear (08/18/2024 12:00 AM EDT) Swab Cervical swab / Unknown us [facility] B[facility] Ob K[place]ha Nurse LAB CYTOLOGY ORDERABLES Final Result EXTERNAL LAB documented in this encounter Visit Diagnoses Not on filedocumented in this encounter Care Teams Chief Crna Relationship Specialty Start Date End Date Cruz Rodríguez MD [address] [place] [address] PCP - [place] [employer] 09/26/2111/25 Cruz Rodríguez MD [address] [place] [address] PCP - [facility] 02/24/23 4 Eliceo Beltran DO [address] [place] [address] PCP - General Family Medicine 02/14/24 Eliceo Beltran DO [address] [address] [place] [address] PCP - Medical [place] [employer] 07/27/24 11/25/99 documented as of this encounter
--- OUTSIDE RECORDS SUMMARY | 2025-05-04 10:54 | XMS_ITS | Encounter Summary ---
Author Organization [facility] Address [address] [facility] [place] [address] Care Team Providers Care Movers Name Role Phone Cruz Rodríguez MD Unavailable + 54 Cruz Rodríguez MD Primary Care Provider + Cruz Rodríguez MD Unavailable + 54 [facility] MAINTENANCE COORDINATOR Unavailable + Trista Thao MAINTENANCE COORDINATOR Unavailable [phone] Eliceo Beltran DO Primary Care Provider + Eliceo Beltran DO Unavailable [phone] Encounter Details Date Type Department Care Team (Late st Contact Info) Description 09/19/2023 Orders Only [facility] [address] [place] [address] Cruz Rodríguez MD [address] [place] [address] Social History Tobacco Use Types Packs/Day Years [...] How often do you attend chur or jew services? Patient declined 09/19/2023 Do you belong to any clubs o r organizations such as restorationist groups, unions, fraternal or athletic groups, or [...] and heating? Not hard at all 09/19/2023 [facility] of Occupat ional Health - Occupational Stress [...] place to sleep or slept in a fpc (including now)? 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 [...] PM EDT Routine [facility] OB [address] [place] [address] Nathan Pop, DO [address] [facility] [address] [place], [place] [id number] 09/07/2025 4:00 PM EDT Office Visit [facility] OB [address] [place] [address] Nathan Pop, DO [address] [facility] [address] [place], [place] [phone] documented as of this encounter Visit Diagnoses Not on filedocumented in this encounter Care Teams Movers Relationship Specialty Start Date End Date Cruz Rodríguez MD [address] [place] [address] PCP - [facility] 09/26/2111/25 Cruz Rodríguez MD [address] [place] [address] PCP - General Family Medicine 04/10/23 02/13/24 Cruz Rodríguez MD [address] [place] [address] PCP - [facility] 02/24/23 4 Eliceo Beltran DO [address] [place] [address] PCP - General Family Medicine 02/14/24 Eliceo Beltrna DO [address] [place] [address] [place] [address] PCP - Medical [place] [employer] 07/27/24 11/25/99 [facility] [place] NP [address] [place] [address] Nurse Practitioner Family Medicine 10/05/23 04/14/24 Trista Thao NP [address] [place] [address] Nurse Practitioner Pulmonary Disease 10/05/23 04/14/24 documented as of this encounter
--- OUTSIDE RECORDS SUMMARY | 2025-05-04 10:54 | XMS_ITS | Encounter Summary ---
Author Organization [facility] Address [address] [place] [address] Care Team Providers Care Manager Statistical Programming Name Role Phone Cruz Rodríguez MD Unavailable + 54 Cruz Rodríguez MD Primary Care Provider + Cruz Rodríguez MD Unavailable + 54 [place] CIGARETTE ROLLER Unavailable + Trista Thao CIGARETTE ROLLER Unavailable +[phone] Eliceo Beltran DO Primary Care Provider +[phone] Eliceo Beltran DO Unavailable [phone] Encounter Details Date Type Department Care Team (Late st Contact Info) Description 05/01/2023 Abstract [facility] [address] 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 [...] PM EDT Routine [facility] OB [address] [facility] [place] [phone] Nathan Pop, DO [address] [facility] [address], [place] [address] 09/07/2025 4:00 PM EDT Office Visit [facility] OB [address] [place] [phone] Nathan Pop, DO [address] [facility] [place] [address] documented as of this encounter Visit Diagnoses Not on filedocumented in this encounter Care Teams Manager Statistical Programming Relationship Specialty Start Date End Date Cruz Rodríguez MD [address] [place] [address] PCP - [place] [employer] 09/26/2111/25 Cruz Rodríguez MD [address] [place] [address] PCP - General Family Medicine 04/10/23 02/13/24 Cruz Rodríguez MD [address] [place] [address] PCP - [facility] 02/24/23 4 Eliceo Beltran DO [address] [place] [address] PCP - General Family Medicine 02/14/24 Eliceo Beltran DO [address] [place] [address] PCP - Medical [place] [employer] 07/27/24 11/25/99 [place] NP [address] [place] [address] Nurse Practitioner Family Medicine 10/05/23 04/14/24 Trista Thao CIGARETTE ROLLER [address] [place] [address] Nurse Practitioner Pulmonary Disease 10/05/23 04/14/24 documented as of this encounter
--- OUTSIDE RECORDS SUMMARY | 2025-05-04 10:54 | XMS_ITS | Encounter Summary ---
Author Organization [facility] Address [address] [place] [address] Care Team Providers Care Rand Tacker Name Role Phone Eliceo Beltran DO Primary Care Provider [phone] Eliceo Beltran DO Unavailable [phone] Encounter Details Date Type Department Care Team (Late st Contact Info) Description 05/01/2025 Clinisync Result Encounter NOMS External Department Unsolicited Jony Pop DO [address] [facility] [place] [address] Social History Tobacco Use Types Packs/Day Years [...] How often do you attend chur or hindu services? Patient declined 12/29/2024 Do you belong to any clubs o r organizations such as caodaism groups, unions, fraternal or athletic groups, or [...] Recorded Patient Health Questionnaire-2 Score 0 12/30/2024 [facility] of Occupat ional Health - [...] place to sleep or slept in a detention (including now)? No 09/19/2023 Housing Stability Vital Sign Answer Kang e Recorded In the last 12 months, was t here a time when you were not able to pay the mortgage or rent on time? No 12/29/2024 Number of Times Moved in the Last Year Not on fi le 12/29/2024 At any time in the past 12 m [facility], were you homeless or living in a detention (including now)? 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 documented as of this encounter Procedures Procedure Name Priority Date/Time Associated Diagnosis Comments US OB TRANSVAGINAL 05/01/2025 9: 01 AM EDT documented in this encounter Results * US OB TRANSVAGINAL (05/01/2025 9:01 AM EDT) Anatomical Region Laterality Modality Other 05/01/2025 9:01 AM EDT Narrative 05/01/2025 9:04 [place] [address] Ultrasound Report Signed Patient: DRISS COPE MR#: [id number] : 1995 Acct:[id number] Age/Sex: 30 / F ADM Date: 05/01/25 Loc: US Attending Dr: Jony Pop D.O. Ordering Physician: Jony oPp D.O. Date of Service: 05/01/25 Procedure(s): US OB transvaginal Accession Number(s): [id number] cc: Jony Pop D.O.; Physician,Non-Staff Katherine The [address] [address] Patient Name: DRISS COPE MRN: [id number] date: 1995 Sex: F Assigned Patient Location: US Current Patient Location: US Accession/Order Number: [id number] Exam Date: 05/01/2025 08:57 Report Date: 05/01/2025 [...] Faria M.D. 05/01/2025 9:01 AM Dictation Location: [place] [address] Electronically authenticated by: [id number] Y Date: 05/01/2025 09:01 Dictated By: Will Faria M.D. Signed By: 05/01/25 0904 DD/ 0 TD/TT: Table Cut Off Saw Operator: Procedure Note Radiology, Radiologist, MD - 05/01/2025 [place] [address] Ultrasound Report Signed Patient: DRISS COPE MMR#: [id number] : 1995Acct:[id number] Age/Sex: 30 / FADM Date: 05/01/25 Loc: US Attending Dr: Jony Pop D.O. Ordering Physician: Jony Pop D.O. Date of Service: 05/01/25 Procedure(s): US OB transvaginal Accession Number(s): [id number] cc: Jony Pop D.O.; Physician,Non-Staff Katherine [place] [id number] Patient Name: DRISS COPE MRN: [id number] date: 1995 Sex: F Assigned Patient Location: US Current Patient Location: US Accession/Order Number: [id number] Exam Date: 05/01/2025 08:57 Report Date: 05/01/2025 [...] Faria M.D. 05/01/2025 9:01 AM Dictation Location: [place] [address] Electronically authenticated by: [id number] Y Date: 509:01 Dictated By: Will Faria M.D. Signed By:05/01/25903 DD/ 0 TD/TT: Table Cut Off Saw Operator: us Jony Pop DO [facility] Final Result documented in this encounter Visit Diagnoses Not on filedocumented in this encounter Care Teams Rand Tacker Relationship Specialty Start Date End Date Eliceo Beltran DO [address] [place] [address] PCP - General Family Medicine 02/14/24 Eliceo Beltran DO [address] [place] [address] PCP - Medical [place] [employer] 07/27/24 11/25/99 documented as of this encounter
[2025-05-04 11:32] LABS: BOX Test Reference Lab unity; BOX Test Sent Out unity; Basophils Percent Auto 0.3 % (0.2-2.0); Eosinophils Absolute Auto 0.1 10^3/uL (0.0-0.7); Eosinophils Percent Auto 0.8 % (0.9-7.0); Hematocrit 39.8 % (36.0-48.0); Hemoglobin 13.2 g/dL (12.0-16.0); Immature Granulocytes Abs Auto 0.04 10^3/uL (0.00-0.03); Immature Granulocytes Pct Auto 0.4 % (0.0-0.5); Lymphocytes Absolute Auto 2.6 10^3/uL (1.2-3.8); Lymphocytes Percent Auto 28.3 % (20.5-60.0); Mean Corpuscular HGB Conc 33.2 g/dL (29.9-35.2); Mean Corpuscular Hemoglobin 28.1 pg (26.7-34.0); Mean Corpuscular Volume 84.7 fL (81.0-99.0); Mean Platelet Volume 9.9 fL (9.5-13.5); Monocytes Absolute Auto 0.6 10^3/uL (0.3-0.8); Monocytes Percent Auto 6.6 % (1.7-12.0); Neutrophils Absolute Auto 5.7 10^3/uL (1.4-6.5); Neutrophils Percent Auto 63.6 % (43.0-75.0); Platelet Count 390 10^3/uL (150-450)
[2025-05-04 11:58] LABS: Amphetamine Screen Urine NEGATIVE (NEGATIVE); Barbiturates Screen Urine NEGATIVE (NEGATIVE); Benzodiazepines Screen Urine NEGATIVE (NEGATIVE); Buprenorphine Screen Urine NEGATIVE (NEGATIVE); Cannabinoid Screen Urine NEGATIVE (NEGATIVE); Cocaine Screen Urine NEGATIVE (NEGATIVE); Methadone Screen Urine NEGATIVE (NEGATIVE); Methamphetamines Screen Urine NEGATIVE (NEGATIVE); Opiate Screen Urine NEGATIVE (NEGATIVE); Oxycodone Screen Urine NEGATIVE (NEGATIVE); Phencyclidine Screen Urine NEGATIVE (NEGATIVE); Tricyclic Antidepressant Urine NEGATIVE (NEGATIVE)
[2025-05-04 13:06] LABS: Estimated Average Glucose 105 mg/dL; Glycohemoglobin A1C 5.3 % (4.5-6.2)
[2025-05-05 05:07] LABS: HIV Ab/p24 Ag Screen Non Reactive (Non Reactive)
[2025-05-05 06:08] LABS: HBsAg Screen Negative (Negative)
[2025-05-05 10:08] LABS: Rubella Antibodies, IgG <0.90 index (Immune >0.99)
[2025-05-05 12:08] LABS: Rapid Plasma Reagin, Quant Non Reactive titer (NonRea<1:1)
== END 2025-05-04 10:48 | disposition home or self-care (01) ==
LOC: LAB 10:51
PROVIDERS: Family Provider Family Medicine; Visit Provider Obstetrics & Gynecology
DX: Z34.01 Encounter for supervision of normal first pregnancy, first trimester (principal); Z36.0 Encounter for antenatal screening for chromosomal anomalies; N92.6 Irregular menstruation, unspecified
CPT/HCPCS: 36415; 80307; 83036; 85025; 86592; 86762; 86803; 86850; 86900; 86901; 87086; 87340; 87389

== ENCOUNTER 2025-07-15 16:44 | Outpatient (OUT) | payer OTHER, SELFPAY ==
--- OUTSIDE RECORDS SUMMARY | 2025-07-15 14:30 | XMS_ITS | Encounter Summary ---
Author Organization [facility] Address [address] [place] [address] Care Team Providers Care School Cafeteria Head Cook Name Role Phone Ruby Eliceo Hurtado DO Primary Care Provider [phone] Eliceo Beltran DO Unavailable [phone] Encounter Details Date Type Department Care Team (Latest Contact Info) Description 07/15/2025 2:30 PM EDT Ancillary Procedure [facility] [place] [facility] [address] [place] [address] [place] [address] Screening, , for anatomic survey ([facility]) Social History Tobacco Use Types Packs/Day Years [...] How often do you attend chur or latter-day services? 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 file Not on file documented as of this encounter Plan of Treatment Upcoming Encounters Date Type Department Care Team (Late st Contact Info) Description 08/12/2025 2:40 PM EDT Routine [facility] [place] MOODY [address] [place] [address] Nathan Pop, DO [address] [place] [address] 09/07/2025 4:00 PM EDT Office Visit [facility] OBGYN [address] [facility] [address] Nathan Pop, DO [address] [facility] [place] [address] Pending Results Name Type Priority Associated Diagnoses Date /Time US OB 14+ weeks anatomy scan Imaging Routine Screening, , for anatomic survey ([facility] 07/15/2025 3:26 PM EDT documented as of this encounter Visit Diagnoses Diagnosis Screening, , for anatomic survey ([facility]) Encounter for anatomic survey documented in this encounter Care Teams School Cafeteria Head Cook Relationship Specialty Start Date End Date Eliceo Beltran DO [address] [place] [address] PCP - General Family Medicine 02/14/24 Eliceo Beltran DO [address] [place] [address] PCP - Medical [place] [employer] 07/27/24 11/25/99 documented as of this encounter
--- OUTSIDE RECORDS SUMMARY | 2025-07-15 15:30 | XMS_ITS | Encounter Summary ---
Author Organization [facility] Address [address] [place] [address] Care Team Providers Care Tube Sizer And Cutter Operator Name Role Phone Eliceo Beltran Primary Care Provider [phone] CharlottecarolEliceo Bryant DAY Unavailable [phone] Reason for Visit * Reason Comments Routine Visit Encounter Details Date Type Department Care Team (Late Contact Info) Description 07/15/2025 3:30 PM EDT Routine [facility]BG[facility] [address] [place] [address] Nathan Pop DO [address] [facility] [place] [address] 20 weeks gestation of ([facility]); Second trimester ([facility]); Diabetes mellitus screening Social History Tobacco Use Types Packs/Day Years [...] How often do you attend chur or advent services? Patient declined 12/29/2024 Do you belong to any clubs o r organizations such as moravian groups, unions, fraternal or athletic groups, or [...] Recorded Patient Health Questionnaire-2 Score 0 12/30/2024 [facility] [place] of Occupat ional Health - Occupational Stress [...] No 12/29/2024 Housing Stability Vital Sign Answer Kagn e Recorded In the last 12 months, [...] place to sleep or slept in a senior care (including now)? No 09/19/2023 Housing Stability Vital Sign Answer Kang e Recorded In the last 12 months, was t here a time when you were not able to pay the mortgage or rent on time? No 12/29/2024 Number of Times Moved in the Last Year Not on fi le 12/29/2024 At any time in the past 12 m [facility], were you homeless or living in a senior care (including now)? 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 Not on file Not on file documented as of this encounter Last Filed Vital Signs Vital Sign Reading Time Taken Comments Blood Pressure 120/80 07/15/2025 3:42 PM EDT Pulse - - Temperature - - Respiratory Rate - - Oxygen Saturation - - Inhaled Oxygen Concentration - - Weight 65.7 kg (144 lb 12.8 oz) 07/15/2025 3:42 PM EDT Height - - Body Mass Index 26.48 12/30/2024 3:53 PM EST documented in this encounter Plan of Treatment Upcoming Encounters Date Type Department Care Team (Late st Contact Info) Description 08/12/2025 2:40 PM EDT Routine [facility] MOODY [address] [place] [address] [place] [phone] Nathan Pop, [address] [place], [place] [id number] 09/07/2025 4:00 PM EDT Office Visit LAN[facility]TE MOODY [address] [place] [address] [place] [phone] Nathan Pop, DO [address] [facility] [address] [place], [place] [phone] Scheduled Orders Name Type Priority Associated Diagnoses Orde r Schedule CBC Lab Routine Diabetes mellitus screening Expected: 07/15/2025 (Approximate), Expires: 07/15/2026 Glucose tolerance, 1 hour Lab Routine Diabetes mellitus screening Expected: 07/15/2025 (Approximate), Expires: 07/15/2026 documented as of this encounter Procedures Procedure Name Priority Date/Time Associated Diagnosis Comments POCT URINALYSIS DIPSTICK Routine 07/15/2025 3:50 PM EDT 20 weeks gestation of ([facility]) Second trimester ([facility]) documented in this encounter Results * POCT urinalysis dipstick manually resulted (07/15/2025 3:50 PM EDT) Color, UA Yellow Clarity, UA Clear Glucose, UA Negative Negative - 1999(110) ++++ mg/dL Bilirubin, UA Negative Negative - 4(70) +++ mg/dL Ketones, UA Negative Negative - 160(16) ++++ mg/dL Spec Grav, UA 1.010 1 - 1.03 Blood, UA Negative Negative - 50 Teodoro/mcL pH, UA 6.0 5 - 9 Protein, UA Negative Negative - 1999(20) ++++ mg/dL Urobilinogen, UA 1.0 0.2 - 12 mg/dL Leukocytes, UA Negative Negative - 500+++ Robinson/mcL Nitrite, UA Negative Negative - Positive Urine 07/15/2025 3:50 PM EDT Nathan Pop DO POINT OF CARE TEST ENTER/EDIT OR DERABLES Final Result documented in this encounter Visit Diagnoses Diagnosis 20 weeks gestation of ([facility]) Second trimester ([facility]) state, incidental Diabetes mellitus screening Screening for diabetes mellitus documented in this encounter Care Teams Tube Sizer And Cutter Operator Relationship Specialty Start Date End Date Eliceo Beltran DO [address] [place] [address] PCP - General Family Medicine 02/14/24 Eliceo Beltran DO [address] [place] [address] PCP - Medical [place] [employer] 07/27/24 11/25/99 documented as of this encounter
--- OUTSIDE RECORDS SUMMARY | 2025-07-15 16:49 | XMS_ITS | Encounter Summary ---
Author Organization [facility] Address [address] [facility] [place] [address] Care Team Providers Care Management Accounts Manager Name Role Phone Cruz Rodríguez MD Unavailable + [phone] Cruz Rodríguez MD Unavailable + [phone] Eliceo Beltran DO Primary Care Provider [phone] Eliceo Beltran DO Unavailable [phone] Encounter Details Date Type Department Care Team (Late st Contact Info) Description 08/25/2024 Orders Only [facility] OBGYRonen [address] [place] [address] Virgen Steen LPN [address] [place] [address] Social History Tobacco Use Types Packs/Day [...] often do you attend chur ch or adventism services? Patient declined 09/19/2023 Do you belong to any clubs o r organizations such as hindu groups, unions, fraternal or athletic groups, or [...] Recorded Patient Health Questionnaire-2 Score 0 02/19/2024 [facility] of Occupat ional Health - [...] in a detention (including now)? 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 [place] [address] Nathan Pop, [address] [place], [place] [address] 09/07/2025 4:00 PM EDT Office Visit [facility]TE MOODY [address] [place] [address] Nathan Pop DO [address] [place], [place] [address] documented as of this encounter Procedures Procedure Name Priority Date/Time Associated Diagnosis Comments PAP SMEAR Routine 08/18/2024 12:00 AM EDT documented in this encounter Results * Pap Smear (08/18/2024 12:00 AM EDT) Swab Cervical swab / Unknown Kiesha Nurse [facility] Bcp Ob LAB CYTOLOGY ORDERABLES Final Result EXTERNAL LAB documented in this encounter Visit Diagnoses Not on filedocumented in this encounter Care Teams Management Accounts Manager Relationship Specialty Start Date End Date Cruz Rodríguez MD [address] [place] [address] PCP - [employer] 09/26/2111/25 Cruz Rodríguez MD [address] [place] [address] PCP - [facility] 02/24/23 4 Eliceo Beltran DO [address] [place] [address] PCP - General Family Medicine 02/14/24 Eliceo Beltran DO [address] [place] [address] PCP - Medical [place] [employer] 07/27/24 11/25/99 documented as of this encounter
--- OUTSIDE RECORDS SUMMARY | 2025-07-15 16:49 | XMS_ITS | Encounter Summary ---
Author Organization [facility] Address [address] [facility] [place] [address] Care Team Providers Care Meat Pickler Name Role Phone Cruz Rodríguez MD Unavailable + [phone] Cruz Rodríguez MD Primary Care Provider [phone] Cruz Rodríguez MD Unavailable + 54 [place] RIVET DRIVER Unavailable Trista Thao RIVET DRIVER Unavailable [phone] Eliceo Beltran DO Primary Care Provider [phone] Eliceo Beltran DO Unavailable [phone] Encounter Details Date Type Department Care Team (Late st Contact Info) Description 09/19/2023 Orders Only [facility] [place] Family Medicine [address] [place] [address] Cruz Rodríguez MD [address] [place] [address] Social History Tobacco Use Types Packs/Day Years [...] week 09/19/2023 How often do you attend [facility] or baptism services? 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 Not [...] Info) Description 08/12/2025 2:40 PM EDT Routine NOMShalonda MOODY [address] [facility] [place] [phone] Nathan Pop, DO [address] [facility] [address] [place], [place] [address] 09/07/2025 4:00 PM EDT Office Visit [facility]TE MOODY [address] [place] [address] Nathan Pop, DO [address] [facility] [address] [place], [place] [id number] documented as of this encounter Visit Diagnoses Not on filedocumented in this encounter Care Teams Meat Pickler Relationship Specialty Start Date End Date Cruz Rodríguez MD [address] [place] [address] PCP - [facility] 09/26/2111/25 Cruz Rodríguez MD [address] [place] [address] PCP - General Family Medicine 04/10/23 02/13/24 Cruz Rodríguez MD [address] [place] [address] PCP - [facility] 02/24/23 4 Eliceo Beltran DO [address] [place] [address] PCP - General Family Medicine 02/14/24 Eliceo Beltran DO [address] [place] [address] PCP - Medical [place] [employer] 07/27/24 11/25/99 [place] NP [address] [place] [address] Nurse Practitioner Family Medicine 10/05/23 04/14/24 Trista Thao NP [address] [place] [address] Nurse Practitioner Pulmonary Disease 10/05/23 04/14/24 documented as of this encounter
--- OUTSIDE RECORDS SUMMARY | 2025-07-15 16:49 | XMS_ITS | Encounter Summary ---
Author Organization [facility] Address [address] [place] [address] Care Team Providers Care Quencher Operator Name Role Phone NirajEliceo kauffman Primary Care Provider [phone] Charlottecarol Eliceo Hurtado DO Unavailable [phone] Encounter Details Date Type Department Care Team (Late st Contact Info) Description 03/16/2025 Abstract [facility] [address] [facility] [place] [phone] Nathan Pop DO [address] [facility] [address] [place], [facility] Social History Tobacco Use Types Packs/Day [...] How often do you attend chur or jain services? Patient declined 12/29/2024 Do you belong to any clubs o r organizations such as tenriism groups, unions, fraCatapulter or athletic groups, or school groups? No [...] Recorded Patient Health Questionnaire-2 Score 0 12/30/2024 [facility] of Occupat ional Health - Occupational [...] place to sleep or slept in a fci (including now)? No 09/19/2023 Housing Stability Vital Sign Answer Kang e Recorded In the last 12 months, was t here a time when you were not able to pay the mortgage or rent on time? No 12/29/2024 Number of Times Moved in the Last Year Not on fi le 12/29/2024 At any time in the past 12 m [facility], were you homeless or living in a fci (including now)? 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 [place] [address] 09/07/2025 4:00 PM EDT Office Visit NOMShalonda MOODY [address] [facility] [place] [address] Nathan Pop, DO [address] [facility] [place] [address] documented as of this encounter Visit Diagnoses Not on filedocumented in this encounter Care Teams Quencher Operator Relationship Specialty Start Date End Date Eliceo Beltran DO [address] [place] [address] PCP - General Family Medicine 02/14/24 Eliceo Beltran DO [address] [place] [address] PCP - Medical [employer] [employer] 07/27/24 11/25/99 documented as of this encounter
--- OUTSIDE RECORDS SUMMARY | 2025-07-15 16:49 | XMS_ITS | Encounter Summary ---
Author Organization [facility] Address [address] [facility] [place] [address] Care Team Providers Care Tire Center Supervisor Name Role Phone Cruz Rodríguez MD Unavailable + [phone] Cruz Rodríguez MD Primary Care Provider [phone] Cruz Rodríguez MD Unavailable + 54 [place] WOUND CARE TECHNICIAN Unavailable Trista Thao WOUND CARE TECHNICIAN Unavailable [phone] Eliceo Beltran DO Primary Care Provider [phone] Eliceo Beltran DO Unavailable [phone] Encounter Details Date Type Department Care Team (Late st Contact Info) Description 09/10/2023 Abstract [facility] [place] Podiatry [address] [facility] [address] [place] [phone] Rosio Booth DPM [address] [facility] [address] [place] [address] Social History Tobacco Use Types Packs/Day Years [...] 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 Not [...] 08/12/2025 2:40 PM EDT Routine [facility]TE MOODY [address] [place] [address] [place] [phone] Nathan Pop, [address] [facility] [place] [address] 09/07/2025 4:00 PM EDT Office Visit LANETTE MOODY [address] [place] [address] Nathan Pop, [address] [facility] [place] [address] documented as of this encounter Visit Diagnoses Not on filedocumented in this encounter Care Teams Tire Center Supervisor Relationship Specialty Start Date End Date Cruz Rodríguez MD [address] [place] [phone] PCP - [employer] 09/26/2111/25 Cruz Rodríguez MD [address] [place] [address] PCP - General Family Medicine 04/10/23 02/13/24 Cruz Rodríguez MD [address] [place] [address] PCP - [facility] 02/24/23 4 Eliceo Beltran DO [address] [place] [address] PCP - General Family Medicine 02/14/24 Eliceo Beltran DO [address] [place] [address] PCP - Medical [place] [employer] 07/27/24 11/25/99 [place] NP [address] [place] [address] Nurse Practitioner Family Medicine 10/05/23 04/14/24 Trista Thao WOUND CARE TECHNICIAN [address] [place] [address] Nurse Practitioner Pulmonary Disease 10/05/23 04/14/24 documented as of this encounter
--- OUTSIDE RECORDS SUMMARY | 2025-07-15 16:49 | XMS_ITS | Encounter Summary ---
Author Organization [facility] Address [address] [facility] [place] [address] Care Team Providers Care Doffer Name Role Phone Cruz Rodríguez MD Unavailable + [phone] Cruz Rodríguez MD Primary Care Provider [phone] Cruz Rodríguez MD Unavailable + 54 [facility] REINSURANCE ANALYST Unavailable Trista Thao REINSURANCE ANALYST Unavailable [phone] Eliceo Beltran DO Primary Care Provider [phone] Eliceo Beltran DO Unavailable [phone] Encounter Details Date Type Department Care Team (Late st Contact Info) Description 09/17/2023 Abstract [facility] [address] [place] [address] Cruz Rodríguez MD [address] [place] [address] Social History Tobacco Use Types Packs/Day Years [...] How often do you attend chur or sikh services? Patient declined 09/19/2023 Do you belong to any clubs o r organizations such as anabaptist groups, unions, fraternal or athletic groups, or [...] and heating? Not hard at all 09/19/2023 [facility] of Occupat ional Health - Occupational Stress [...] a group home (including now)? 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 Answer Date of Assessment Author Karen 09/19/2023 8:30 AM EDT Mychart, Generic documented as of this encounter Plan of Treatment Upcoming Encounters Date Type Department Care Team (Late st Contact Info) Description 08/12/2025 2:40 PM EDT Routine [facility] MOODY [address] [facility] [place] [address] Nathan Pop, DO [address] [facility] [place] [address] 09/07/2025 4:00 PM EDT Office Visit LANETTE MOODY [address] [place] [address] Ntahan Pop, DO [address] [facility] [place] [address] documented as of this encounter Visit Diagnoses Not on filedocumented in this encounter Care Teams Doffer Relationship Specialty Start Date End Date Cruz Rodríguez MD [address] [place] [address] PCP - [facility] 09/26/2111/25 Cruz Rodríguez MD [address] [place] [address] PCP - General Family Medicine 04/10/23 02/13/24 Cruz Rodríguez MD [address] [place] [address] PCP - [facility] 02/24/23 4 Eliceo Beltran DO [address] [place] [address] PCP - General Family Medicine 02/14/24 Eliceo Beltran DO [address] [place] [address] [place] [address] PCP - Medical [place] [employer] 07/27/24 11/25/99 Zen[facility] [place] NP [address] [place] [address] Nurse Practitioner Family Medicine 10/05/23 04/14/24 Trista Thao NP [address] [place] [address] Nurse Practitioner Pulmonary Disease 10/05/23 04/14/24 documented as of this encounter
--- OUTSIDE RECORDS SUMMARY | 2025-07-15 16:49 | XMS_ITS | Encounter Summary ---
Author Organization [facility] Address [address] [facility] [place] [address] Care Team Providers Care Costume Cutter Name Role Phone Cruz Rodríguez MD Unavailable + [phone] Cruz Rodríguez MD Primary Care Provider + [phone] Cruz Rodríguez MD Unavailable + 54 [place] SYSTEM DESIGNER Unavailable Trista Thao SYSTEM DESIGNER Unavailable +[phone] Eliceo Beltran DO Primary Care Provider [phone] Eliceo Beltran DO Unavailable [phone] Encounter Details Date Type Department Care Team (Late st Contact Info) Description 01/15/2024 Clinisync Result Encounter [facility] External Department Unsolicited Jony Pop DO [address] [facility] [place] [address] Social History Tobacco Use Types Packs/Day Years [...] week 09/19/2023 How often do you attend [facility] or yarsani services? Patient declined 09/19/2023 Do you belong to any clubs o r organizations such as catholic groups, unions, fraternal or athletic groups, or [...] Recorded Patient Health Questionnaire-2 Score 0 10/23/2023 [facility] [place] of Occupat ional Health - Occupational Stress [...] place to sleep or slept in a custodial (including now)? 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 Not on file Not on file documented as of this encounter Plan of Treatment Upcoming Encounters Date Type Department Care Team (Late st Contact Info) Description 08/12/2025 2:40 PM EDT Routine LANET[facility] MOODY [address] [place] [address] Jony Pop, DO [address] [place], [place] [id number] 09/07/2025 4:00 PM EDT Office Visit LANETTE MOODY [address] [place] [phone] Jony Pop, DO [address] [place] [address] [phone] (work) documented as of this encounter Procedures Procedure Name Priority Date/Time Associated Diagnosis Comments US PELVIS W/ TRANSVAGINAL 01/15/2024 11:42 AM EST documented in this encounter Results * US PELVIS W/ TRANSVAGINAL (01/15/2024 11:42 AM EST) Anatomical Region Laterality Modality Other 01/15/2024 11:4 2 AM EST Narrative 01/15/2024 11:44 AM EST [address] [address] Ultrasound Report Signed Patient: DRISS COPE MR#: [id number] : 1995 Acct:[id number] Age/Sex: 28 / F ADM Date: 01/15/24 Loc: [facility] Attending Dr: Jony Pop D.O. Ordering Physician: Jony Pop D.O. Date of Service: 01/15/24 Procedure(s): US pelvis w/ transvaginal Accession Number(s): [id number] cc: Jony Pop D.O.; Physician,Non-Staff MShelly The [address] [address] Patient Name: DRISS COPE MRN: [id number] date: 1995 Sex: F Assigned Patient Location: [facility] Current Patient Location: [facility] Accession/Order Number: [id number] Exam Date: 01/15/2024 07:57 Report Date: 01/15/2024 [...] Signed By: 01/15/24 1144 DD/ 1142 TD/TT: Inventory Control Manager: Procedure Note Radiology, Radiologist, MD - 01/15/2024 [place] [address] Ultrasound Report Signed Patient: DRISS COPE MMR#: [id number] : 1995Acct:[id number] Age/Sex: 28 / FADM Date: 01/15/24 Loc: [facility] Attending Dr: Jony Pop D.O. Ordering Physician: Jony Pop D.O. Date of Service: 01/15/24 Procedure(s): US pelvis w/ transvaginal Accession Number(s): [id number] cc: Jony Pop D.O.; Physician,Non-Staff M.DKaren The [place] [id number] Patient Name: DRISS COPE MRN: [id number] date: 1995 Sex: F Assigned Patient Location: [facility] Current Patient Location: [facility] Accession/Order Number: [id number] Exam Date: 01/15/2024 07:57 Report Date: 01/15/2024 [...] M.D. Signed By:01/15/24 1144 DD/ 1142 TD/TT: Inventory Control Manager: us Jony Kiesha DO [facility] Final Result documented in this encounter Visit Diagnoses Not on filedocumented in this encounter Care Teams Costume Cutter Relationship Specialty Start Date End Date Cruz Rodríguez MD [address] [place] [address] PCP - [facility] 09/26/2111/25 Cruz Rodríguez MD [address] [place] [address] PCP - General Family Medicine 04/10/23 02/13/24 Cruz Rodríguez MD [address] [place] [address] PCP - [facility] 02/24/23 4 Eliceo Beltran DO [address] [place] [address] PCP - General Family Medicine 02/14/24 Eliceo Beltran DO [address] [place] [address] PCP - Medical [place] [employer] 07/27/24 11/25/99 [facility] NP [address] [place] [address] Nurse Practitioner Family Medicine 10/05/23 04/14/24 Trista Thao SYSTEM DESIGNER [address] [place] [address] Nurse Practitioner Pulmonary Disease 10/05/23 04/14/24 documented as of this encounter
--- OUTSIDE RECORDS SUMMARY | 2025-07-15 16:49 | XMS_ITS | Encounter Summary ---
Author Organization [facility] Address [address] [place] [address] Care Team Providers Care Typing Checker Name Role Phone NirajEliceo kauffman Primary Care Provider [phone] Charlottecarol Eliceo Hurtado DO Unavailable [phone] Encounter Details Date Type Department Care Team (Late st Contact Info) Description 05/11/2025 Abstract [facility] [address] [facility] [place] [address] Nathan Pop DO [address] [facility] [address] [place], [facility] Social History Tobacco Use Types Packs/Day Years [...] How often do you attend chur or orthodox services? Patient declined 12/29/2024 Do you belong to any clubs o r organizations such as bahai groups, unions, fraVOSS or athletic groups, or school groups? No [...] Recorded Patient Health Questionnaire-2 Score 0 12/30/2024 [facility] of Occupat ional Health - Occupational [...] place to sleep or slept in a retirement (including now)? No 09/19/2023 Housing Stability Vital Sign Answer Kang e Recorded In the last 12 months, was t here a time when you were not able to pay the mortgage or rent on time? No 12/29/2024 Number of Times Moved in the Last Year Not on fi le 12/29/2024 At any time in the past 12 m [facility], were you homeless or living in a retirement (including now)? 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 Not on file Not on file documented as of this encounter Plan of Treatment Upcoming Encounters Date Type Department Care Team (Late st Contact Info) Description 08/12/2025 2:40 PM EDT Routine NOM[facility]alonda MOODY [address] [place] [address] [place] [address] Nathan Pop, DO [address] [facility] [place] [address] 09/07/2025 4:00 PM EDT Office Visit LANETTE MOODY [address] [place] [address] Nathan Pop, DO [address] [facility] [address] [place], [place] [address] documented as of this encounter Visit Diagnoses Not on filedocumented in this encounter Care Teams Typing Checker Relationship Specialty Start Date End Date Eliceo Beltran DO [address] [facility] [address] [place] [address] PCP - General Family Medicine 02/14/24 Eliceo Beltran DO [address] [facility] [address] [place] [address] PCP - Medical [place] [employer] 07/27/24 11/25/99 documented as of this encounter
--- OUTSIDE RECORDS SUMMARY | 2025-07-15 16:49 | XMS_ITS | Encounter Summary ---
Author Organization [facility] Address [address] [place] [address] Care Team Providers Care Owner Professional Engineer Name Role Phone Cruz Rodríguez MD Unavailable + 54 Cruz Rodríguez MD Primary Care Provider + [phone] Cruz Rodríguez MD Unavailable + 54 [place] VACUUM FORMING MACHINE OPERATOR Unavailable Trista Thao VACUUM FORMING MACHINE OPERATOR Unavailable [phone] Eliceo Beltran DO Primary Care Provider [phone] Eliceo Beltran DO Unavailable [phone] Encounter Details Date Type Department Care Team (Late st Contact Info) Description 02/13/2024 Clinisync Result Encounter [facility] External Department Unsolicited Jony Pop DO [address] [facility] [place] [address] Social History Tobacco Use Types Packs/Day Years [...] week 09/19/2023 How often do you attend [facility] or yazidi services? Patient declined 09/19/2023 Do you belong to any clubs o r organizations such as roman catholic groups, unions, fraternal or athletic groups, [...] Recorded Patient Health Questionnaire-2 Score 0 10/23/2023 [facility] [place] of Occupat ional Health - Occupational Stress [...] place to sleep or slept in a longterm (including now)? 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 Not on file Not on file documented as of this encounter Plan of Treatment Upcoming Encounters Date Type Department Care Team (Late st Contact Info) Description 08/12/2025 2:40 PM EDT Routine LANETTE MOODY [address] [place] [address] Jony Pop, DO [address] [place], [place] [id number] 09/07/2025 4:00 PM EDT Office Visit LANETTE MOODY [address] [place] [address] Jony Pop, DO [address] [place], [place] [address] documented as of this encounter Procedures Procedure Name Priority Date/Time Associated Diagnosis Comments ECG 12-LEAD 02/13/2024 2:55 PM EDT documented in this encounter Results * ECG 12-LEAD (02/13/2024 2:55 PM EDT) Anatomical Region Laterality Modality Other 02/13/2024 2:55 PM EDT Narrative 02/14/2024 6:50 AM EDT [place] [id number] Electrocardiograph Report Signed Patient: DRISS COPE MR#: [id number] : 1995 Acct:[id number] Age/Sex: 28 / F ADM Date: 02/13/24 Loc: [facility] Attending Dr: Jony Pop D.O. Ordering Physician: Jony Pop D.O. 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 Signed By: 02/14/24 0650 DD/ 1455 TD/TT: School Speech Language Pathologist: Procedure Note Radiology, Radiologist, - 02/14/[address] [address] Electrocardiograph Report Signed Patient: DRISS COPE MMR#: [id number] : 1995Acct:[id number] Age/Sex: 28 / FADM Date: 02/13/24 Loc: PST Attending Dr: Jony Pop D.O. Ordering Physician: Jony Pop D.O. 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 Signed By:02/14/24 0650 DD/ 1455 TD/TT: School Speech Language Pathologist: Jony Pop DO [facility] Final Result documented in this encounter Visit Diagnoses Not on filedocumented in this encounter Care Teams Owner Professional Engineer Relationship Specialty Start Date End Date Cruz Rodrígeuz MD [address] [place] [address] PCP - [place] [employer] 09/26/2111/25 Cruz Rodríguez MD [address] [place] [address] PCP - General Family Medicine 04/10/23 02/13/24 Cruz Rodríguez MD [address] [place] [address] PCP - [facility] 02/24/23 4 Eliceo Beltran DO [address] [place] [address] PCP - General Family Medicine 02/14/24 Eliceo Beltran DO [address] [facility] [address] [place] [address] PCP - Medical [place] [employer] 07/27/24 11/25/99 [facility] [place] NP [address] [place] [place] [address] Nurse Practitioner Family Medicine 10/05/23 04/14/24 Trista Thao NP [address] [place] [address] Nurse Practitioner Pulmonary Disease 10/05/23 04/14/24 documented as of this encounter
--- OUTSIDE RECORDS SUMMARY | 2025-07-15 16:49 | XMS_ITS | Patient Health Record ---
Author Organization [facility] Address [address] [place] [address] Care Team Providers Care Child Care Teacher Name Role Phone Cruz Rodríguez Primary Care Provider Laura McintoshCathi sandoval Unavailable [phone] Allergies No Known Allergies Results Component Value [...] mg/dl TRG 116 0 - 149 mg/dl Reason For Referral No Information Medications Medication SIG (Take, Route, Frequency, Duration) Notes Start Date End Date Status Jolessa 0.15-0.03 MG 1 tablet Orally Once a day Active Metoprolol Succinate 25 MG 1 capsule Ora lly Once a day Active Immunizations Vaccine Route Administration Date Status [facility] Fluzone Quad MDV (0.5m L Admin) 3y/o & older Unknown 02/09/2020 Refused z2022 FluBLOK Quad PFS (0.5m L Admin) 18 [...] Status W/U Status Risk Notes Problem Tachycardia (0278030) Tachycardia (R00.0) Active confirmed Problem Obesity (BMI 30-39.9) (E66.9) Active confirmed Vital Signs Blood pressure diastolic 74 mm Hg 08/03/2024 Height 64 in 08/03/2024 Blood pressure systolic 112 mm Hg 08/03/2024 Weight 140 lbs 08/03/2024 BMI 24.03 kg/m2 08/03/2024 Encounters Encounter Location Date Provider Diagnosis [address] [place] [address] [place] [address] 08/03/2024 Cathi Pereira Screening for hypertension Z13.6 ; Screening for lipid disorders Z13.220 and Screening for diabetes mellitus Z13.1 Assessments Encounter Date Diagnosis (ICD Code) Assessment Notes Treatment Notes Treatment Clinical Notes Section Notes 08/03/2024 Screening for hypertension (ICD-10 - Z13.6) 08/03/2024 Screening for lipid disorders (ICD-10 - Z13.220) 08/03/2024 Screening for diabetes mellitus (ICD-10 - Z13.1) 08/03/2024 Other Reviewed results of screening with patient as well as recommendatio ns for lifestyle changes as appropriate. Patient expressed understanding . Reminder to document amount of time spent with patient on Biometric Screening and counseling of their results in the Preventative Medicine section. Plan Of Treatment No Information Insurance Providers Payer Name Payer Address Payer Phone Subscriber Number Group Number Insured Name Patient Relationship to Insured Coverage Start Date Coverage End Date [employer] [place] [address] [place] [address] [id number] Driss Woodruff Self - patient is the insured Medical [employer] [place] [address] [place] [address] [id number] Driss Woodruff Self - patient is the insured Medical (General) History Medical History History ICD Code Tachycardia R00.0 Surgical History Surgery Date(Month/Year) right shoulder surgery endometriosis appendectomy Hospitalization History Reason Date(Month/Year) surgeries childbirth
--- OUTSIDE RECORDS SUMMARY | 2025-07-15 16:49 | XMS_ITS | Clinical Summary ---
Author Organization [facility] Address [address] [place] [address] Care Team Providers Care Dental Insurance Biller Name Role Phone Eliceo Beltran DO Primary Care Provider [phone] Eliceo Beltran DO Unavailable [phone] Allergies No known active allergies Medications metoprolol succinate XL (Toprol-XL) 25 MG 24 hr tabletIndicatio ns:Hypertension , unspecified type Take 1 tablet by mouth daily 90 tablet 1 12/30/19 25 Active Vit-Fe Fumarate-FA ( Vitamins) 28-0.8 MG tabletIndicatio ns:, unspecified gestational age ([facility]),Encou nter for supervision of normal first in first trimester ([facility]) Take 1 tablet by mouth Daily 30 tablet 05/01/20 026 Active promethazine (Phenergan) 12.5 MG tabletIndicatio ns:Nonintractab le episodic headache, unspecified headache type Take 1 tablet (12.5 mg) by mouth every 6 (six) hours if needed for nausea or vomiting for up to 30 doses Take 1 tablet by mouth every 6 hours as needed for nausea. 30 tablet 2 05/25/20 25 025 Discontinued cetirizine (ZyrTEC ALLERGY) 10 MG tabletIndicatio ns:Allergy, sequela Take 1 tablet (10 mg) by mouth Daily 30 tablet 11 06/09/20 25 025 Discontinued fluticasone (Flonase) 50 MCG/ACT nasal sprayIndication s:Sinusitis, unspecified chronicity, unspecified location Administer 1 spray into each nostril Daily Shake gently. Before first use, prime pump. After use, clean tip and replace cap. 16 g 12 06/22/20 25 025 Discontinued metroNIDAZOLE (Flagyl) 500 MG tabletIndicatio ns:BV (bacterial vaginosis) Take 1 tablet (500 mg) by mouth in the morning and 1 tablet (500 mg) before bedtime. Do all this for 7 days. Do not drink alcohol while taking this medication. 14 tablet 06/25/20 25 025 Active Problems Problem Noted Date [...] Encounters Date Type Department Care Team Description 07/15/2025 3:30 PM EDT Routine [facility] OBGYR[facility] [address] [place] [address] [place] [address] Jony Pop, 20 weeks gestation of ([facility]); Second trimester ([facility]); Diabetes mellitus screening 07/15/2025 2:30 PM EDT Ancillary Procedure [facility] YOUNGN [address] [place] [address] Screening, , for anatomic survey ([facility]) 06/25/2025 [place] [address] Jony Pop, DO 06/22/2025 2:10 [place] [address] Jony Pop DO Sinusitis, unspecified chronicity, unspecified location (Primary Dx); Second trimester ([facility]); 17 weeks gestation of ([facility]); Screening, , for anatomic survey ([facility]) 06/22/2025 External Result Encounter NOMS External Department Unsolicited Jony Pop, DO 06/22/2025 Bamboo flowsheet [facility] MOODY [address] [place] [address] Jony Pop, DO 06/15/2025 Travel 06/09/2025 Telephone [facility] MOODY [address] [place] [address] Hina Go LPN 05/25/2025 2:40 PM EDT Routine [facility] Ptati YOUNGN [address] [place] [address] Jony Pop, Nonintractable episodic headache, unspecified headache type (Primary Dx); Second trimester ([facility]); 13 weeks gestation of ([facility]) 05/25/2025 Bamboo flowsheet [facility] MOODY [address] [place] [address] Dmitri Popy, DO 05/18/2025 Travel 05/11/2025 Abstract [facility] MOODY [address] [place] [address] Kiesha Jony, DO 05/04/2025 Clinisync Result Encounter NOMS External Department Unsolicited Kiesha Jony, DO 05/01/2025 9:00 AM [place] [id number] [place]: 9w6d 05/01/2025 Clinisync Result Encounter NOMS External Department Unsolicited Jony Pop, DO 04/24/2025 Travel from Last 3 Months Immunizations Immunization Administration [...] How often do you attend chur or moravian services? Patient declined 12/29/2024 Do you belong to any clubs o r organizations such as advent groups, unions, fraternal or athletic groups, or [...] Recorded Patient Health Questionnaire-2 Score 0 12/30/2024 [facility] - Occupational Stress Questionnaire Answer Date Recorded [...] place to sleep or slept in a jail (including now)? No 09/19/2023 Housing Stability Vital Sign Answer Kang e Recorded In the last 12 months, was t here a time when you were not able to pay the mortgage or rent on time? No 12/29/2024 Number of Times Moved in the Last Year Not on fi le 12/29/2024 At any time in the past 12 m [facility], were you homeless or living in a jail (including now)? 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 file Not on file Last Filed Vital Signs Vital Sign Reading Time Taken Comments Blood Pressure 120/80 07/15/2025 3:42 PM EDT Pulse 51 12/30/2024 3:53 PM EST Temperature 36.2 C (97.1 F) 12/30/2024 3:53 PM EST Respiratory Rate 16 10/23/2023 4:16 PM EST Oxygen Saturation 98% 12/30/2024 3:53 PM EST Inhaled Oxygen Concentration - - Weight 65.7 kg (144 lb 12.8 oz) 07/15/2025 3:42 PM EDT Height 157.5 cm (5' 2 ) 12/30/2024 3:53 PM EST Body Mass Index 26.48 12/30/2024 3:53 PM EST Plan of Treatment Upcoming Encounters Date Type Department Care Team (Late st Contact Info) Description 08/12/2025 2:40 PM EDT Routine NOMShalonda MOODY [address] [place] [address] [place] [address] Jony Pop, [address] [place], [place] [address] [address] 09/07/2025 4:00 PM EDT Office Visit LANETTE MOODY [address] [place], [place] [address] [address] Jony Pop, [address] [place] [address] Health Maintenance Due Date Last Done Comments Influenza Vaccine (#1) 2025 09/11/2014 Pap Smear 08/18/2027 08/18/2024, 07/28, 06/20/2022, Additional history exists Cervical Cancer Screening 09/03/2028 HPV/Cotest 09/03/2028 09/03/2023 Procedures Procedure Name Priority Date/Time Associated Diagnosis Comments POCT URINALYSIS DIPSTICK Routine 07/15/2025 3:50 PM EDT 20 weeks gestation of ([facility]) Second trimester ([facility]) RECURRENT VAGINITIS (HTRX) Routine 06/22/2025 4:25 PM EDT POCT URINALYSIS DIPSTICK Routine 06/22/2025 2:39 PM EDT Second trimester ([facility]) 17 weeks gestation of ([facility]) POCT URINALYSIS DIPSTICK Routine 05/25/2025 2:56 PM EDT Second trimester ([facility]) CULTURE, URINE, ROUTINE Routine 05/21/2025 1:00 PM EDT Missed menses HCV ANTIBODY RFX TO QUANT PCR Routine 05/04/2025 11:17 AM EDT ALL RUBELLA IGG AB Routine 05/04/2025 11 :17 AM EDT HBSAG SCREEN Routine 05/04/2025 11:17 AM EDT RAPID PLASMA REAGIN, QUANT Routine 05/04/2025 11:17 AM EDT HIV AB/P24 AG WITH REFLEX Routine 05/04/2025 11:17 AM EDT MLR HEMOGLOBIN A1C Routine 05/04/2025 11 :17 AM EDT ALL TYPE AND SCREEN Routine 05/04/2025 1 1:17 AM EDT ALL CBC WITH AUTO DIFF Routine 05/04/2025 11:17 AM EDT BOX TEST Routine 05/04/2025 11:17 AM EDT [facility] DRUG SCREEN RAPID (URINE) Routine 05/04/2025 10:56 AM EDT POCT URINALYSIS DIPSTICK Routine 05/01/2025 10:31 AM [...] Recently Relevant to Health Maintenance Results * POCT urinalysis dipstick manually resulted (07/15/2025 3:50 PM EDT) Only the most recent of4 resultswithin the time period is included. Color, UA Yellow Clarity, UA Clear Glucose, UA Negative Negative - 2000(110) ++++ mg/dL Bilirubin, UA Negative Negative - 4(70) +++ mg/dL Ketones, UA Negative Negative - 160(16) ++++ mg/dL Spec Grav, UA 1.010 1 - 1.03 Blood, UA Negative Negative - 50 Teodoro/mcL pH, UA 6.0 5 - 9 Protein, UA Negative Negative - 2000(20) ++++ mg/dL Urobilinogen, UA 1.0 0.2 - 12 mg/dL Leukocytes, UA Negative Negative - 500+++ Robinson/mcL Nitrite, UA Negative Negative - Positive Urine 07/15/2025 3:50 PM EDT Jony Pop DO POINT OF CARE TEST ENTER/EDIT OR DERABLES Final Result * (ABNORMAL) RECURRENT VAGINITIS (HTRX) (06/22/2025 4:25 PM EDT) ATOPOBIUM VAGINAE 0 19.961 - 24.689 ppm 06/24/2025 6:19 AM EDT [facility] ATOPOBIUM VAGINAE Not Detected 19.961 - 24.689 ppm 06/24/2025 6:19 AM EDT [facility] BVAB 2,3 (BACTERIAL VAGINOSIS ASSOCIATED BACTERIA 2, 3); MOBILUNCUS SPP 0 19.961 - 24.689 ppm 06/24/2025 6:19 AM EDT [facility] BVAB 2,3 (BACTERIAL VAGINOSIS ASSOCIATED BACTERIA 2, 3); MOBILUNCUS SPP Not Detected 19.961 - 24.689 ppm 06/24/2025 6:19 AM EDT [facility] RADHA ALBICANS, PARAPSILOSIS, TROPICALIS 0 23.000 - 30.347 ppm 06/24/2025 6:19 AM EDT [facility] RADHA ALBICANS, PARAPSILOSIS, TROPICALIS Not Detected 23.000 - 30.347 ppm 06/24/2025 6:19 AM EDT [facility] RADHA GLABRATA 0 23.000 - 31.618 ppm 06/24/2025 6:19 AM EDT [facility] RADHA GLABRATA Not Detected 23.000 - 31.618 ppm 06/24/2025 6:19 AM EDT [facility] RADHA KRUSEI 0 23.000 - 30.873 ppm 06/24/2025 6:19 AM EDT [facility] RADHA KRUSEI Not Detected 23.000 - 30.873 ppm 06/24/2025 6:19 AM EDT [facility] CHLAMYDIA TRACHOMATIS 0 23.000 - 31.586 ppm 06/24/2025 6:19 AM EDT [facility] CHLAMYDIA TRACHOMATIS Not Detected 23.000 - 31.586 ppm 06/24/2025 6:19 AM EDT [facility] GARDNERELLA VAGINALIS 17.967(A) 19.961 - 24.689 ppm 06/24/2025 6:38 AM EDT [facility] GARDNERELLA VAGINALIS Detected(A) 19.961 - 24.689 ppm 06/24/2025 6:38 AM EDT [facility] MEGASPHAERA (TYPES 1, 2) 0 19.961 - 24.689 ppm 06/24/2025 6:19 AM EDT [facility] ALEXANDRIAHAERA (TYPES 1, 2) Not Detected 19.961 - 24.689 ppm 06/24/2025 6:19 AM EDT [facility] NEISSERIA GONORRHOEAE 0 23.000 - 32.587 ppm 06/24/2025 6:19 AM EDT [facility] NEISSERIA GONORRHOEAE Not Detected 23.000 - 32.587 ppm 06/24/2025 6:19 AM EDT [facility] TRICHOMONAS VAGINALIS 0 23.000 - 31.995 ppm 06/24/2025 6:19 AM EDT [facility] TRICHOMONAS VAGINALIS Not Detected 23.000 - 31.995 ppm 06/24/2025 6:19 AM EDT [facility] MYCOPLASMA GENITALIUM 0 19.961 - 24.689 ppm 06/24/2025 6:19 AM EDT [facility] MYCOPLASMA GENITALIUM Not Detected 19.961 - 24.689 ppm 06/24/2025 6:19 AM EDT [facility] 06/22/2025 4:25 PM EDT 06/24/2025 1:21 AM EDT us Jony Kiesha DO LAB BLOOD ORDERABLES Final Resul t [facility] [address] [address] * Urine culture (05/21/2025 1:00 PM EDT) Urine Urine specimen obtained by clean catch procedure / Unknown Jony Kiesha DO LAB MICROBIOLOGY - GENERAL ORDER NATE Final Result Performing Organization Address City/[facility]/ZIP Co de Phone Number EXTERNAL LAB * BOX TEST (05/04/2025 11:17 AM EDT) Pathologist [facility] BOX TEST SENT OUT [facility] BOX1 [facility] BOX2 05/04/25 [facility] 05/04/2025 11:1 7 AM EDT 05/04/2025 11:24 AM EDT Narrative CL[facility]NC - 05/04/2025 11:32 AM EDT UNITY BOX Jony Kiesha DO LAB BLOOD ORDERABLES Final Resul t Performing Organization Address [facility] Co de Phone Number [facility] * HBSAG SCREEN (05/04/2025 11:17 AM EDT) Pathologist [facility] HBSAG SCREEN Negative Negative [facility] Comment: Performed at: [address] [id number] Pipelines Manager: Cm Sandoval PhD, Phone: [phone] 05/04/2025 11:1 7 AM EDT 05/04/2025 11:24 AM EDT Narrative CLINISYNC - 05/05/2025 12:08 PM EDT us Jony Kiesha DO LAB BLOOD ORDERABLES Final Resul t Performing Organization Address [facility] Co de Phone Number [facility] * RAPID PLASMA REAGIN, QUANT (05/04/2025 11:17 AM EDT) Pathologist [facility] RAPID PLASMA REAGIN, QUANT Non Reactive NonRea<1: 1 titer [facility] Comment: Please Note: This test does not meet current guidelines for screening and diagnosis of syphilis. This test is intended for following treatment response in patients being treated for syphilis infection. To screen for syphilis infection, a reflex cascade that includes both RPR and a treponema-specific assay should be utilized, such as Treponema pallidum (Syphilis) Screening Mccormick (447565) or Rapid Plasma Reagin (RPR) Test With Reflex to Quantitative RPR and Confirmatory Treponema pallidum Antibodies (507465). Performed at: [address] [id number] Pipelines Manager: Cm Sandoval PhD, Phone: [phone] 05/04/2025 11:1 7 AM EDT 05/04/2025 11:24 AM EDT Narrative CLINISYMS - 05/05/2025 12:08 PM EDT us Jony Kiesha DO LAB BLOOD ORDERABLES Final Resul t Performing Organization Address [facility] Co de Phone Number [facility] * HIV AB/P24 AG WITH REFLEX (05/04/2025 11:17 AM EDT) HIV AB/P24 AG SCREEN Non Reactive Non Reactive TB Comment: HIV-1/HIV-2 antibodies and HIV-1 p24 antigen were NOT detected. There is no laboratory evidence of HIV infection. HIV Negative Performed at: [address] [id number] Pipelines Manager: Cm Sandoval PhD, Phone: [phone] 05/04/2025 11:1 7 AM EDT 05/04/2025 11:24 AM EDT Narrative CLINISYMS - 05/05/2025 5:07 AM EDT us Jony Kiesha DO LAB BLOOD ORDERABLES Final Resul t Performing Organization Address [facility] Co de Phone Number [facility] * HCV ANTIBODY RFX TO QUANT PCR (05/04/2025 11:17 AM EDT) HCV AB Non Reactive TB INTERPRETATION: [facility] Comment: Not infected with HCV unless early or acute infection is suspected (which may be delayed in an immunocompromised individual), or other evidence exists to indicate HCV infection. 05/04/2025 11:1 7 AM EDT 05/04/2025 11:24 AM EDT Narrative CLINISYNC - 05/11/2025 2:37 PM EDT us Jony Kiesha DO LAB BLOOD ORDERABLES Final Resul t [facility] * MLR HEMOGLOBIN A1C (05/04/2025 11:17 AM EDT) [facility] GLYCOHEMOGLOBIN A1C 5.3 4.5 - 6.2 % [facility] Comment: ADA RECOMMENDED LIMIT 4.0 - 6.0 ADA THERAPEUTIC TARGET < 7.0 ACTION SUGGESTED > 7.0 ESTIMATED AVERAGE GLUCOSE 105 mg/dL [facility] 05/04/2025 11:1 7 AM EDT 05/04/2025 11:24 AM EDT Narrative CLINISYNC - 05/04/2025 1:37 PM EDT Jony Kiesha DO CLINISYNC Final Result Performing Organization Address [facility]/ZIP Co de Phone Number [facility] * ALL TYPE AND SCREEN (05/04/2025 11:17 AM EDT) [facility] BLOOD TYPE O Positive [facility] ANTIBODY SCREEN NEGATIVE [facility] 05/04/2025 11:1 7 AM EDT 05/04/2025 11:24 AM EDT Narrative CLINISYNC - 05/04/2025 12:22 PM EDT [facility] Kiesha DO CLINISYNC Final Result Performing Organization Address City/[facility] Co de Phone Number [facility] * (ABNORMAL) ALL RUBELLA IGG AB (05/04/2025 11:17 AM EDT) [facility] RUBELLA ANTIBODIES, IGG <0.90(A) Immune >0.99 index [facility] Comment: Non-immune <0.90 Equivocal 0.90 - 0.99 Immune >0.99 Performed at: [address] [id number] Pipelines Manager: Cm Sandoval PhD, Phone: [phone] 05/04/2025 11:1 7 AM EDT 05/04/2025 11:24 AM EDT Narrative CLINISYNC - 05/11/2025 2:37 PM EDT us Jony Pop DO CLINISYNC Final Result [facility] * (ABNORMAL) ALL CBC WITH AUTO DIFF (05/04/2025 11:17 AM EDT) [facility] WBC 9.0 4.0 - 11.0 10 3/uL [facility] TB[facility] RBC 4.70 4.20 - 5.40 10 6/uL [facility] TBH HGB 13.2 12.0 - 16.0 g/dL [facility] TBH HCT 39.8 36.0 - 48.0 % [facility] MCV 84.7 81.0 - 99.0 fL [facility] TBH MCH 28.1 26.7 - 34.0 pg TB[facility] TBH MCHC 33.2 29.9 - 35.2 g/dL [facility] TBH RDW 12.0 11.0 - 15.0 % [facility] TBH PLT 390 150 - 450 10 3/uL [facility]H TBH MPV 9.9 9.5 - 13.5 fL [facility]H NEUTROPHILS PERCENT AUTO 63.6 43.0 - 75.0 % [facility] LYMPHOCYTES PERCENT AUTO 28.3 20.5 - 60.0 % [facility] MONOCYTES PERCENT AUTO 6.6 1.7 - 12.0 % [facility]H EO % 0.8(L) 0.9 - 7.0 % [facility] BASOPHILS PERCENT AUTO 0.3 0.2 - 2.0 % [facility] IMMATURE GRANULOCYTES PCT AUTO 0.4 0.0 - 0.5 % [facility] NEUTROPHILS ABSOLUTE AUTO 5.7 1.4 - 6.5 10 3/uL [facility] LYMPHOCYTES ABSOLUTE AUTO 2.6 1.2 - 3.8 10 3/uL [facility] MONOCYTES ABSOLUTE AUTO 0.6 0.3 - 0.8 10 3/uL TBH TBH EO # 0.1 0.0 - 0.7 10 3/uL [facility] BASOPHILS ABSOLUTE AUTO 0.0 0.0 - 0.1 10 3/uL [facility] IMMATURE GRANULOCYTES ABS AUTO 0.04(H) 0.00 - 0.03 10 3/uL [facility] 05/04/2025 11:1 7 AM EDT 05/04/2025 11:24 AM EDT Narrative CLINISYNC - 05/04/2025 11:39 AM EDT Jony Cabrerao DO CLINISYNC Final Result Performing Organization Address [facility]/ZIP Co de Phone Number CLINISYMS TB * [facility] DRUG SCREEN RAPID (URINE) (05/04/2025 10:56 AM EDT) CANNABINOID SCREEN URINE NEGATIVE NEGATIVE TBH PHENCYCLIDINE SCREEN URINE NEGATIVE NEGATIVE TBH COCAINE SCREEN URINE NEGATIVE NEGATIVE TBH METHAMPHETAMINES SCREEN URINE NEGATIVE NEGATIVE TBH OPIATE SCREEN URINE NEGATIVE NEGATIVE TBH AMPHETAMINE SCREEN URINE NEGATIVE NEGATIVE TBH BENZODIAZEPINES SCREEN URINE NEGATIVE NEGATIVE TBH TRICYCLIC ANTIDEPRESSANT URINE NEGATIVE NEGATIVE TBH METHADONE SCREEN URINE NEGATIVE NEGATIVE TBH BARBITURATES SCREEN URINE NEGATIVE NEGATIVE TBH OXYCODONE SCREEN URINE NEGATIVE NEGATIVE TBH BUPRENORPHINE SCREEN URINE NEGATIVE NEGATIVE TBH Comment: DRUG CLASS TEST SYSTEM CUT-OFF CONCENTRATIONS ARE FOLLOWS: AMP (Amphetamine): 500 ng/mL BAR (Barbiturates): 200 ng/mL BZO (Benzodiazepines): 150 ng/mL BUP (Buprenorphine): 10 ng/mL ROSALIA (Cocaine): 150 ng/mL mAMP (Methamphetamine): 500 ng/mL MTD (Methadone): 200 ng/mL OPI (Opiates): 100 ng/mL OXY (Oxycodone): 100 ng/mL PCP (Phencyclidine): 25 ng/mL THC (Cannabinoids): 50 ng/mL TCA (Trycyclic Antidepressants): 300 ng/mL 05/04/2025 10:5 6 AM EDT 05/04/2025 11:24 AM EDT Narrative CLINISYNC - 05/04/2025 11:58 AM EDT Jony Pop DO CLINISYNC Final Result [facility] * (ABNORMAL) POCT , urine manually resulted (05/01/2025 10:31 AM EDT) Preg Test, Ur Positive Negative Urine 05/01/2025 10:3 1 AM EDT us Jony Pop DO POINT OF CARE TEST ENTER/EDIT OR DERABLES Final Result * US OB TRANSVAGINAL (05/01/2025 9:01 AM EDT) Anatomical Region Laterality Modality Other 05/01/2025 9:01 AM EDT Narrative 05/01/2025 9:04 [place] [address] Ultrasound Report Signed Patient: DRISS COPE MR#: [id number] : 1995 Acct:[id number] Age/Sex: 30 / F ADM Date: 05/01/25 Loc: US Attending Dr: Jony Pop D.O. Ordering Physician: Jony Pop D.O. Date of Service: 05/01/25 Procedure(s): US OB transvaginal Accession Number(s): [id number] cc: Jony Pop D.O.; Physician,Non-Staff [place] [id number] Patient Name: DRISS COPE MRN: [id number] date: 1995 Sex: F Assigned Patient Location: Current Patient Location: US Accession/Order Number: [id number] Exam Date: 05/01/2025 08:57 Report Date: 05/01/2025 [...] Faria M.D. 05/01/2025 9:01 AM Dictation Location: [place] [address] Electronically authenticated by: [id number] Y Date: 05/01/2025 09:01 Dictated By: Will Faria M.D. Signed By: 05/01/25903 DD/ 0 TD/TT: Title Officer: Procedure Note Radiology, Radiologist, MD - 05/01/2025 [place] [address] Ultrasound Report Signed Patient: DRISS COPE MMR#: [id number] : 1995Acct:[id number] Age/Sex: 30 / FADM Date: 05/01/25 Loc: US Attending Dr: Jony Pop D.O. Ordering Physician: Jony Pop D.O. Date of Service: 05/01/25 Procedure(s): US OB transvaginal Accession Number(s): [id number] cc: Jony Pop D.O.; Physician,Non-Staff [place] [id number] Patient Name: DRISS COPE MRN: [id number] date: 1995 Sex: F Assigned Patient Location: US Current Patient Location: US Accession/Order Number: [id number] Exam Date: 05/01/2025 08:57 Report Date: 05/01/2025 [...] Faria M.D. 05/01/2025 9:01 AM Dictation Location: [place] [address] Electronically authenticated by: [id number] Y Date: 509:01 Dictated By: Will Faria M.D. Signed By:05/01/25903 DD/ 0 TD/TT: Title Officer: Jony Pop DO [facility] IMAGING Final Result * Pap Smear (08/18/2024 12:00 AM EDT) Swab Cervical swab / Unknown Kiesha Nurse [facility] Ob LAB CYTOLOGY ORDERABLES Final Result EXTERNAL LAB * THINPREP PAP AND HPV MRNA E6/E7 W/RFL HPV 16,18/45 (09/03/2023 4:00 PM EDT) [facility] LAB BLOOD ORDERABLES Final Resul t EXTERNAL LAB from Last 3 Months or Most Recently Relevant to Health Maintenance Insurance [employer] Care Teams Dental Insurance Biller Relationship Specialty Start Date End Date Eliceo Beltran DO [address] [facility] [address] [place] [address] PCP - General Family Medicine 02/14/24 Eliceo Beltran DO [address] [facility] [address] [place] [address] PCP - Medical [place] [employer] 07/27/24 11/25/99
--- OUTSIDE RECORDS SUMMARY | 2025-07-15 16:50 | XMS_ITS | Encounter Summary ---
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 on file Not on file documented as of this encounter Plan of Treatment Upcoming Encounters Date Type Department Care Team (Late Contact Info) Description 08/12/2025 2:40 PM EDT Routine [facility] YOUNGN [address] [place] [address] [place] [phone] Nathan Pop, DO [address] [facility] [place] [address] 09/07/2025 4:00 PM EDT Office Visit LANETTE MOODY [address] [place] [address] [place] [phone] Nathan Pop, DO [address] [place] [address] documented as of this encounter Procedures Procedure [...] OF EXAM: Jun 12 2023 2:47PM [facility] 0713 - MRI FEMALE PELVIS [...] additional findings. IMPRESSION: No deep infiltrating endometriosis. Critical Systems Technician[facility] Transcribe Date/Time: Jun 12 2023 2:54P Dictated by : ASHLEY DUKE MD This examination was interpreted and the report reviewed and electronically signed by: SONIDO FLAHERTY MD on Jun 12 2023 4:51PM EST [id number]^SI^ACN Procedure Note Radiology, Radiologist, - 06/13/2023 * * *Final Report* * * DATE OF EXAM: Jun 12 2023 2:47PM [facility] 0713 - MRI FEMALE PELVIS [...] additional findings. IMPRESSION: No deep infiltrating endometriosis. Critical Systems Technician: DAVID Transcribe Date/Time: Jun 12 2023 2:54P Dictated by : ASHLEY DUKE MD This examination was interpreted and the report reviewed and electronically signed by: SONIDO FLAHERTY MD on Jun 12 2023 4:51PM EST [id number]^SI^ACN us Generic External Data Provider [facility] IMAG[facility] Final Result documented in this encounter Visit Diagnoses Not on filedocumented in this encounter Care Teams Marine Superintendent Relationship Specialty Start Date End Date Cruz Rodríguez MD [address] [place] [address] PCP - [place] [employer] 09/26/2111/25 Cruz Rodríguez MD [address] [place] [address] PCP - General Family Medicine 04/10/23 02/13/24 Cruz Rodríguez MD [address] [place] [address] PCP - [facility] 02/24/23 4 Eliceo Beltran DO [address] [place] [address] [place] [address] PCP - General Family Medicine 02/14/24 Eliceo Beltran DO [address] [place] [address] [place] [address] PCP - Medical [place] [employer] 07/27/24 11/25/99 [facility] [place] NP [address] [place] [address] Nurse Practitioner Family Medicine 10/05/23 04/14/24 Trista Thao NP [address] [place] [address] Nurse Practitioner Pulmonary Disease 10/05/23 04/14/24 documented as of this encounter
--- OUTSIDE RECORDS SUMMARY | 2025-07-15 16:50 | XMS_ITS | Encounter Summary ---
Author Organization [facility] Address [address] [facility] [place] [address] Care Team Providers Care Senior Clinician Name Role Phone Cruz Rodríguez MD Unavailable + 54 Cruz Rodríguez MD Primary Care Provider +54 Cruz Rodríguez MD Unavailable + 54 [place] FASTENER TECHNOLOGIST Unavailable Trista Thao FASTENER TECHNOLOGIST Unavailable +[phone] Eliceo Beltran DO Primary Care Provider [phone] Eliceo Beltran DO Unavailable [phone] Encounter Details Date Type Department Care Team (Late st Contact Info) Description 05/01/2023 Abstract [facility] [place] [facility] [address] [facility] [address] [place] [phone] Briana Robles LPN [address] [facility] [place] [address] [place] [address] Social History Tobacco Use Types Packs/Day Years [...] 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 [...] 08/12/2025 2:40 PM EDT Routine LANETTE MOODY [address] [place] [address] [place] [phone] Pop [address] [place], [place] [address] 09/07/2025 4:00 PM EDT Office Visit LANETTE MOODY [address] [place] [address] [place] [phone] Nathan Pop [address] [facility] [place] [address] documented as of this encounter Visit Diagnoses Not on filedocumented in this encounter Care Teams Senior Clinician Relationship Specialty Start Date End Date Cruz Rodríguez MD [address] [place] [id number] PCP - [place] [employer] 09/26/2111/25 Cruz Rodríguez MD [address] [place] [address] PCP - General Family Medicine 04/10/23 02/13/24 Cruz Rodríguez MD [address] [place] [address] PCP - [facility] 02/24/23 4 Eliceo Beltran DO [address] [place] [address] PCP - General Family Medicine 02/14/24 Eliceo Beltran DO [address] [place] [address] PCP - Medical [place] [employer] 07/27/24 11/25/99 [place] NP [address] [place] [address] Nurse Practitioner Family Medicine 10/05/23 04/14/24 Trista Thao NP [address] [place] [address] Nurse Practitioner Pulmonary Disease 10/05/23 04/14/24 documented as of this encounter
--- OUTSIDE RECORDS SUMMARY | 2025-07-15 16:50 | XMS_ITS | Encounter Summary ---
Author Organization [facility] Address [address] [facility] [place] [address] Care Team Providers Care Patrol Guard Name Role Phone Cruz Rodríguez MD Unavailable + 54 Cruz Rodríguez MD Primary Care Provider +54 Cruz Rodríguez MD Unavailable + 54 [place] DATA CAPTURE SPECIALIST Unavailable Trista Thao DATA CAPTURE SPECIALIST Unavailable +[phone] Eliceo Beltran DO Primary Care Provider +[phone] Eliceo Beltran DO Unavailable [phone] Encounter Details Date Type Department Care Team (Late st Contact Info) Description 07/24/2023 Abstract [facility] [place] [facility] [address] [facility] [address] [place] [address] Kellee Starkey LPN Social History Tobacco Use [...] 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 on file Not on file documented as of this encounter Plan of Treatment Upcoming Encounters Date Type Department Care Team (Late st Contact Info) Description 08/12/2025 2:40 PM EDT Routine NOM[facility] MOODY [address] [facility] [place] [phone] Nathan Pop, DO [address] [place], [place] [address] 09/07/2025 4:00 PM EDT Office Visit LANETTE MOODY [address] [place] [address] Nathan Pop, DO [address] [place], [place] [phone] documented as of this encounter Visit Diagnoses Not on filedocumented in this encounter Care Teams Patrol Guard Relationship Specialty Start Date End Date Cruz Rodríguez MD [address] [place] [id number] PCP - [facility] 09/26/2111/25 Cruz Rodríguez MD [address] [place] [address] PCP - General Family Medicine 04/10/23 02/13/24 Cruz Rodríguez MD [address] [place] [address] PCP - [facility] 02/24/23 4 Eliceo Beltran DO [address] [place] [address] PCP - General Family Medicine 02/14/24 Eliceo Beltran DO [address] [place] [address] PCP - Medical [place] [employer] 07/27/24 11/25/99 [place] NP [address] [place] [address] Nurse Practitioner Family Medicine 10/05/23 04/14/24 Trista Thao DATA CAPTURE SPECIALIST [address] [place] [address] Nurse Practitioner Pulmonary Disease 10/05/23 04/14/24 documented as of this encounter
--- OUTSIDE RECORDS SUMMARY | 2025-07-15 16:50 | XMS_ITS | Encounter Summary ---
Author Organization [facility] Address [address] [facility] [place] [address] Care Team Providers Care Ham Stripper Name Role Phone Cruz Rodríguez MD Unavailable + 54 Cruz Rodríguez MD Primary Care Provider [phone] Cruz Rodríguez MD Unavailable + 54 [place] POCKETED SPRING MACHINE OPERATOR Unavailable Trista Thao POCKETED SPRING MACHINE OPERATOR Unavailable [phone] Eliceo Beltran DO Primary Care Provider [phone] Eliceo Beltran DO Unavailable [phone] Encounter Details Date Type Department Care Team (Late st Contact Info) Description 04/23/2023 Abstract [facility] [place] Family Medicine [address] [place] [address] Cruz Rodríguez MD [address] [place] [address] Social History Tobacco Use Types Packs/Day Years [...] 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 on file [...] 2:40 PM EDT Routine LANETTE MOODY [address] [place] [phone] Nathan Pop, DO [address] [facility] [place] [address] 09/07/2025 4:00 PM EDT Office Visit LANETTE MOODY [address] [place] [phone] Nathan Pop, DO [address] [facility] [place] [address] documented as of this encounter Visit Diagnoses Not on filedocumented in this encounter Care Teams Ham Stripper Relationship Specialty Start Date End Date Cruz Rodríguez MD [address] [place] [address] PCP - [place] [employer] 09/26/2111/25 Cruz Rodríguez MD [address] [place] [address] PCP - General Family Medicine 04/10/23 02/13/24 Cruz Rodríguez MD [address] [place] [address] PCP - [facility] 02/24/23 4 Eliceo Beltran DO [address] [place] [address] PCP - General Family Medicine 02/14/24 Eliceo Beltran DO [address] [place] [address] PCP - Medical [place] [employer] 07/27/24 11/25/99 [place] NP [address] [place] [address] Nurse Practitioner Family Medicine 10/05/23 04/14/24 Trista Thao POCKETED SPRING MACHINE OPERATOR [address] [place] [address] Nurse Practitioner Pulmonary Disease 10/05/23 04/14/24 documented as of this encounter
--- OUTSIDE RECORDS SUMMARY | 2025-07-15 16:50 | XMS_ITS ---
Author Organization [facility] Source Produ ction (ClinicalSummary Clone) Address Unknown Care Team Providers Care Revenue Research Analyst Name Role Phone Unavailable Primary Care Physician Unavailab le Results * [UNITY] ANEUPLOIDY NIPT Performed by: timeplazza Component Value Range Date Fraction 8.3% 05/11/2025 02 :21 am UT Rh(D) NIPT RhD DETECTED 05/11/2025 02:2 1 am [facility] Sex Chromosome Aneuploidy NOT DETECTED 02:21 am UT Monosomy X LOW RISK <1 in 10,000 2024 02:21 am [facility] Trisomy 13 LOW RISK <1 in 10,000 2024 02:21 am UT Trisomy 18 LOW RISK <1 in 10,000 2024 02:21 am UT Trisomy 21 LOW RISK <1 in 10,000 2024 02:21 am UT Sex MALE 05/11/2025 02:2 1 am UT Gestation MOYA 05/11/20 02:21 am [facility] For detailed report, see PDF See PDF 05/11/2025 02:21 am UTC 05/11/2025 02:2 1 am [facility] Social History Observation Value Start Date End Date
--- OUTSIDE RECORDS SUMMARY | 2025-07-15 16:50 | XMS_ITS | Encounter Summary ---
Author Organization [facility] Address [address] [facility] [place] [address] Care Team Providers Care Sprinkling System Installer Name Role Phone Cruz Rodríguez MD Unavailable + 54 Cruz Rodríguez MD Primary Care Provider +54 Cruz Rodríguez MD Unavailable + 54 [place] DISTRIBUTION OPERATIONS MANAGER Unavailable Trista Thao DISTRIBUTION OPERATIONS MANAGER Unavailable [phone] Eliceo Beltran DO Primary Care Provider [phone] Eliceo Beltran DO Unavailable [phone] Encounter Details Date Type Department Care Team (Late st Contact Info) Description 05/23/2023 Abstract [facility] [place] [facility] [address] 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 on file Not [...] 08/12/2025 2:40 PM EDT Routine LANETTE MOODY [address] [place] [address] [place] [phone] Nathan Pop, [address] [facility] [place] [address] 09/07/2025 4:00 PM EDT Office Visit LANETTE MOODY [address] [place] [address] [place] [phone] Nathan Pop, DO [address] [facility] [address] [place], [place] [address] documented as of this encounter Visit Diagnoses Not on filedocumented in this encounter Care Teams Sprinkling System Installer Relationship Specialty Start Date End Date Cruz Rodríguez MD [address] [place] [address] PCP - [place] [employer] 09/26/2111/25 Cruz Rodríguez MD [address] [place] [address] PCP - General Family Medicine 04/10/23 02/13/24 Cruz Rodríguez MD [address] [place] [address] PCP - [facility] 02/24/23 4 Eliceo Beltran DO [address] [place] [address] PCP - General Family Medicine 02/14/24 Eliceo Beltran DO [address] [place] [address] PCP - Medical [place] [employer] 07/27/24 11/25/99 [place] NP [address] [place] [address] Nurse Practitioner Family Medicine 10/05/23 04/14/24 Trista Thao DISTRIBUTION OPERATIONS MANAGER [address] [place] [address] Nurse Practitioner Pulmonary Disease 10/05/23 04/14/24 documented as of this encounter
== END 2025-07-15 16:45 | disposition home or self-care (01) ==
PROVIDERS: Family Provider Family Medicine; PCP Family Medicine; Visit Provider Obstetrics & Gynecology
DX: Z34.92 Encounter for supervision of normal pregnancy, unspecified, second trimester (principal)
CPT/HCPCS: 36415; 82105

== ENCOUNTER 2025-08-19 15:20 | Outpatient (RCR) | payer OTHER, SELFPAY ==
[2025-08-19] MEDS: FERRIC CARBOXYMALTOSE 750 MG in 0.9 % SODIUM CHLORIDE 250 ML 795 MG IV (15:32)
[2025-08-19 15:35] VITALS: BP 127/78; PULSE 95; TEMP 36.6; O2SAT 97
== END 2025-08-25 23:59 | disposition home or self-care (01) ==
LOC: INF 15:20
PROVIDERS: Family Provider Family Medicine; PCP Family Medicine; Visit Provider Obstetrics & Gynecology
DX: D50.9 Iron deficiency anemia, unspecified (principal)
CPT/HCPCS: 96365; J1439

== ENCOUNTER 2025-08-25 07:54 | Observation (INO) | payer OTHER, SELFPAY ==
--- OUTSIDE RECORDS SUMMARY | 2025-08-12 14:00 | XMS_ITS | Encounter Summary ---
Author Organization [facility] Address [address] [place] [address] Care Team Providers Care Principal Systems Architect Name Role Phone Ruby Eliceo Hurtado DO Primary Care Provider Eliceo Beltran DO Unavailable [phone] Encounter Details Date Type Department Care Team (Latest Contact Info) Description 08/12/2025 2:00 PM EDT Ancillary Procedure [facility] [place] [facility] [address] [place] [address] [place] [phone] Encounter for follow-up ultrasound of anatomy ([facility]) Social History Tobacco Use Types Packs/Day Years [...] How often do you attend chur or caodaism services? Patient declined 12/29/2024 Do you belong to any clubs o r organizations such as confucianist groups, unions, fraternal or athletic groups, or [...] Date Recorded Patient Health Questionnaire-2 Score 0 07/30/2025 [facility] - Occupational [...] place to sleep or slept in a mcfp (including now)? No 09/19/2023 Housing Stability Vital Sign Answer Kang e Recorded In the last 12 months, was t here a time when you were not able to pay the mortgage or rent on time? No 12/29/2024 Number of Times Moved in the Last Year Not on fi le 12/29/2024 At any time in the past 12 m [facility], were you homeless or living in a mcfp (including now)? 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 file Not on file documented as of this encounter Plan of Treatment Upcoming Encounters Date Type Department Care Team (Late st Contact Info) Description 08/27/2025 3:20 PM EDT Routine [facility]S Patti MOODY [address] [place] [address] [place] [phone] Steph Keane, CURRENCY MACHINE OPERATOR [address] [facility] [place] [phone] 09/07/2025 4:00 PM EDT Office Visit [facility] Patti YOUNGN [address] [facility] [place] [address] Nathan Pop DO [address] [facility] [address] [place], [place] [address] documented as of this encounter Procedures Procedure Name Priority Date/Time Associated Diagnosis Comments US OB LIMITED 1+ FETUSES Routine 08/12/2025 2:22 PM EDT Encounter for follow-up ultrasound of anatomy ([facility]) documented in this encounter Results * US OB limited 1+ fetuses (08/12/2025 2:22 PM EDT) Anatomical Region Laterality Modality Body Ultrasound 08/12/2025 5:01 PM EDT Impressions 08/13/2025 7:46 AM EDT Appropriate cardiac and outflow tract anatomy, appropriate for this age. TRANSCRIBED BY: ELECTRONICALLY SIGNED BY: Junito Alas MD Narrative 08/13/2025 7:46 AM EDT FINDINGS: Single viable intrauterine with cephalic presentation and antegrade cardiac and activity, 144 bpm. Appropriate adequate visualization of the LVOT, RVOT and four-chamber view seen currently. Gestational age of 24 weeks, 4 days with a estimated delivery date of November 28, 2025. Procedure Note Junito Alas MD - 08/13/2025 FINDINGS: Single viable intrauterine with cephalic presentation and antegradecardiac and activity, 144 bpm. Appropriate adequate visualization of the LVOT, RVOT and four-chamber viewseen currently. Gestational age of 24 weeks, 4 days with a estimated delivery date ofNovember 28, 2025. IMPRESSION: Appropriate cardiac and outflow tract anatomy, appropriate for thisage. TRANSCRIBED BY: ELECTRONICALLY SIGNED BY: Junito Alas MD us Nathan Pop DO IMG OB US PROCEDURES Final Resul t documented in this encounter Visit Diagnoses Diagnosis Encounter for follow-up ultrasound of anatomy ([facility]) documented in this encounter Care Teams Principal Systems Architect Relationship Specialty Start Date End Date Eliceo Beltran DO [address] [place] [address] PCP - General Family Medicine 02/14/24 Eliceo Beltran DO [address] [place] [address] PCP - Medical [place] [employer] 07/27/24 11/25/99 documented as of this encounter
--- OUTSIDE RECORDS SUMMARY | 2025-08-12 14:40 | XMS_ITS | Encounter Summary ---
Author Organization [facility] Address [address] [place] [address] Care Team Providers Care Director Television Name Role Phone NirajEliceo kauffman Primary Care Provider [phone] Charlottecarol Eliceo Hurtado DO Unavailable [phone] Reason for Visit * Reason Comments Routine Visit Encounter Details Date Type Department Care Team (Late Contact Info) Description 08/12/2025 2:40 PM EDT Routine [facility] [address] [facility] [place] [phone] Nathan Pop DO [address] [facility] [place] [address] 24 weeks gestation of ([facility]); Second trimester ([facility]); Elevated glucose tolerance test Social History Tobacco Use Types Packs/Day Years [...] How often do you attend chur or pentecostalism services? 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 female who presents for Routine Visit Patient presents today for Return OB appointment. MEDICATIONS Current Outpatient Medications Medication Instructions labetalol (NORMODYNE) 100 mg, Oral, 2 times daily metoprolol succinate XL (Toprol-XL) 25 MG 24 hr tablet Take 1 tablet by mouth daily Vit-Fe Fumarate-FA ( Vitamins) 28-0.8 MG tablet 1 tablet, Oral, Daily ALLERGIES No Known Allergies PROBLEMS Active Ambulatory Problems Diagnosis Date Noted Acquired equinus deformity of foot 03/29/2023 Displacement of cervical intervertebral disc without myelopathy 03/29/2023 Dysmenorrhea 03/29/2023 Endometriosis 03/29/2023 Gastroparesis 03/29/2023 Hypertension 03/29/2023 Intractable migraine without aura and with status migrainosus 03/29/2023 Migraines 03/29/2023 Chronic pelvic pain in female 03/29/2023 Pain in female genitalia on intercourse 03/29/2023 Pain on swallowing 03/29/2023 Panic disorder 03/29/2023 Patellofemoral disorders, left knee 03/29/2023 Patellofemoral disorders, right knee 03/29/2023 Posterior calcaneal exostosis 03/29/2023 Scapular dyskinesis 03/29/2023 Scoliosis 03/29/2023 Seasonal allergic rhinitis due to pollen 03/29/2023 Tachycardia, paroxysmal (HCC) 03/29/2023 Tension headache 03/29/2023 Vitamin B12 deficiency 03/29/2023 Vitamin D deficiency 03/29/2023 Chronic right shoulder pain 03/29/2023 Tachycardia 02/19/2024 Obesity (BMI 30-39.9) 02/19/2024 Diarrhea 03/24/2025 Resolved Ambulatory Problems Diagnosis Date Noted No Resolved Ambulatory Problems Past Medical History: Diagnosis Date Amenorrhea d/t oral contraceptive pills [place] infection Headache History of menstrual cramps ([facility]) Varicella zoster Visual impairment HISTORY PAST MEDICAL HISTORY SOCIAL HISTORY Past Medical History: Diagnosis Date Amenorrhea d/t oral contraceptive pills Endometriosis [place] infection Headache History of menstrual cramps severe Hypertension ([facility]) x1 Varicella zoster unsure Visual impairment w/ [...] Procedure Laterality Date APPENDECTOMY 05/2016 at [facility] DILATION AND [...] nursing note reviewed. Exam conducted with a pharmacy sales assistant present. Vitals: Estimated body mass index is 27.82 kg/m?? as calculated from the following: Height as of 07/30/25: 5' 2 . Weight as of this encounter: 152 lb 1.9 oz. BP: 138/82 Patient's last menstrual period was 02/21/2025. ASSESSMENT & PLAN ICD-10-CM 1. 24 weeks gestation of ([facility]) Z3A.24 POCT urinalysis dipstick manually resulted 2. Second trimester ([facility]) Z34.92 POCT urinalysis dipstick manually resulted 3. Elevated glucose tolerance test R73.09 Glucose tolerance, 3 hours Glucose tolerance, 3 hours Return OB: Patient presents today for a routine obstetrics appointment. Patient is currently 24w4d . Patient states she is doing well but has complaints of being tired due to current . Patient has verbalizes frequent movement. labor precautions was discussed/given and patient was instructed to perform kick counts three times a day. Orders Placed This Encounter Procedures Glucose tolerance, 3 hours POCT urinalysis dipstick manually resulted Follow Up: Patient is to return to office in 2 week for routine OB appointment. Patient with a history of pre eclampsia and HTN currently on Labetalol 100mg BID. Will refer to [facility] for evaluation. Patient deniesany Headache or blurred vision. Documented by Steph Keane NP on behalf of: Nathan Pop DO documented in this encounter Plan of Treatment Upcoming Encounters Date Type Department Care Team (Late st Contact Info) Description 08/27/2025 3:20 PM EDT Routine [facility] [address] [place] [address] Steph Keane NP [address] [place] [address] 09/07/2025 4:00 PM EDT Office Visit [facility] [address] [facility] [place] [address] Nathan Pop DO [address] [facility] [place] [address] Scheduled Orders Name Type Priority Associated Diagnoses Orde r Schedule Glucose tolerance, 3 hours Lab Routine Elevated glucose tolerance test Expected: 08/12/2025 (Approximate), Expires: 08/12/2026 documented as of this encounter Procedures Procedure Name Priority Date/Time Associated Diagnosis Comments POCT URINALYSIS DIPSTICK Routine 08/12/2025 2:39 PM EDT 24 weeks gestation of ([facility]) Second trimester ([facility]) documented in this encounter Results * (ABNORMAL) POCT urinalysis dipstick manually resulted (08/12/2025 2:39 PM EDT) Color, UA Yellow Clarity, UA [...] Nitrite, UA Negative Negative - Positive Urine 08/12/2025 2:39 PM EDT Nathan Pop DO POINT OF CARE TEST ENTER/EDIT OR DERABLES Final Result documented in this encounter Visit Diagnoses Diagnosis 24 weeks gestation of ([facility]) Second trimester ([facility]) state, incidental Elevated glucose tolerance test Impaired glucose tolerance test documented in this encounter Care Teams Director Television Relationship Specialty Start Date End Date Eliceo Beltran DO [address] [place] [address] PCP - General Family Medicine 02/14/24 Eliceo Beltran DO [address] [place] [address] PCP - Medical [place] [employer] 07/27/24 11/25/99 documented as of this encounter
--- OUTSIDE RECORDS SUMMARY | 2025-08-24 13:17 | XMS_ITS ---
Author Organization [place] Support Name Relationship Address Phone WEN HOPE Unknown [address] [facility] [place] [address] Unavailable WEN HOPE Spouse [address] [place] [facility] [place] [address] + SINWALD, DAYANNA Mother Unknown [phone] WEN HOPE Spouse [address] [place] [facility] [place] [address] + SINWALD, DAYANNA Mother Unknown +[phone] WEN HOPE Spouse [address] [place] [facility] [address] + SINWALD, DAYANNA Mother Unknown +[phone] WNE HOPE Spouse [address] [place] [facility] [place] [address] + SINWALD, DAYANNA Mother Unknown +[phone] JAYY, WEN Spouse [address] [place] [facility] [place] [address] + SINWALD, DAYANNA Mother Unknown +[phone] WEN HOPE Spouse [address] [place] [place] [address] + SINWALD, DAYANNA Mother Unknown +[phone] JAYY, WEN Spouse [address] [place] [facility] [place] [address] + SINWALD, DAYANNA Mother Unknown +[phone] JAYY, WEN Spouse [address] [place] [facility] [place] [address] + SINWALD, DAYANNA Mother Unknown +[phone] Sinwald, Dayanna Mother [address] [place] [address] [place] [address] + Sinwald, Dedra Grandparent [address] [place] [address] + WEN HOPE Spouse [address] [place] [place] [address] + DAYANNA CARDONA Mother Unknown +[phone] WEN HOPE Spouse [address] [place] [place] [address] + DAYANNA CARDONA Mother Unknown +[phone] Care Team Providers Care Clay Caster Name Role Phone NAY HCOUDHARY Attending Unavailable KIESHA, JONY Attending Unavailable KIESHA, JONY Attending Unavailable KIESHA, JONY Attending Unavailable KIESHA, JONY Attending Unavailable KAFTNAY MARQUEZ Attending Unavailable KIESHA, JONY Attending Unavailable KAYomaira BUNDY Attending Unavailable KAFTYomaira MARQUEZ Admitting Unavailable KIESHA, Jony R Admitting Unavailable KIESHA, Jony R Attending Unavailable KIESHA, Jony R Referring Unavailable Yomaira CHOUDHARY Admitting Unavailable KIESHA, Jony R Consulting Unavailable Yomaira CHOUDHARY Attending Unavailable KIESHA, DO Rizviy R Consulting Unavailable KIESHA, Jony R Consulting Unavailable KIESHA, Jony R Attending Unavailable KIESHA, Jony R Admitting Unavailable ELSAMARBELLA Admitting Unavailable ELSA, MARBELLA Attending Unavailable KIEHSA, Jony R Admitting Unavailable KIESHA, Jony R Attending Unavailable KAYomaira BUNDY Attending Unavailable Yomaira CHOUDHARY Admitting Unavailable KAYomaira BUNDY Attending Unavailable Yomaira CHOUDHARY Admitting Unavailable KIESHA, Jony R Admitting Unavailable KIESHA, Jony R Attending Unavailable ELSAMARBELLA DUMONT Admitting Unavailable ELSA, MARBELLA Attending Unavailable KIESHA, Jony R Admitting Unavailable KIESHA, Jony R Attending Unavailable RAMIRO AUGUSTIN Attending Unavailable KIESHA, JONY Bryant Referring Unavailable DENNY RODRÍGUEZ Primary Care Unavailable Denny Rodríguez Primary Care Unavailable Kiesha, Jony Attending Unavailable Kiesha, Jony Admitting Unavailable Purpose PROBLEMS DATE TYPE CONDITION / CODE ATTENDING STATUS [facility] 08/24/2025 Unknown Gestational diab etes mellitus in , unspecified control / O24.419(ICD-10) RAMIRO AUGUSTIN [facility] 08/24/2025 Unknown Gestational Diab etes / FREETEXT(AOF) RAMIRO AUGUSTIN [facility] 02/02/2025 Unknown Unspecified dysp areunia / N94.10(ICD-10) Jony Pop Active [facility] PROCEDURES No Procedure Records Found VITAL SIGNS No Vital Signs Records Found RESULTS GLU 3 HR Collected: 11:43 AM Status: F Source: [facility] TYPE CODE TESTS RESULT OUT OF RANGE REFERENCE UNITS LAB [id number](LOINC) Gluc 3 Hr 141 High 55-140 mg/dL Performed By: #### [id number] # ### [facility] [address] [place] [address] 18041 GLU 2 HR Collected: 10:43 AM Status: F Source: [facility] TYPE CODE TESTS RESULT OUT OF RANGE REFERENCE UNITS LAB [id number](LOINC) Gluc 2 Hr 169 High 55-155 mg/dL Performed By: #### [id number] # ### [facility] [address] [place] [address] 48066 GLU 1 HR Collected: 9:43 AM Status: F Source: [facility] TYPE CODE TESTS RESULT OUT OF RANGE REFERENCE UNITS LAB [id number](LOINC) Gluc 1 Hr 152 Normal 55-180 mg/dL Performed By: #### [id number] # ### [facility] [address] [place] [address] 92534 GLU FASTING Collected: 08/15/2025 8:40 AM Status: F Source: [facility] TYPE CODE TESTS RESULT OUT OF RANGE REFERENCE UNITS LAB [id number](LOINC) Glucose Fasting 82 Normal 55-99 mg/dL Performed By: #### [id number] # ### [facility] [address] [place] [address] 95897 CAPILLARY GLUCOSE POC Collected: 2024 8:38 AM Status: F Source: [facility] TYPE CODE TESTS RESULT OUT OF RANGE REFERENCE UNITS LAB 00074412(LOINC) Glucose Cap 88 Normal 55-99 mg/d L Performed By: #### [id number] #### [facility] [address] [place] [address] US OB LIMITED 1+ FETUSES Observed: 08/12 1:53 PM Status: F Source: [facility] EPIC Order Comment: US OB INCOMPL ETE ANATOMY Estimated Date of Delivery: 11/28/25 Gestational Age as of 07/21/2025: 21w3d FINDINGS: Single viable intrauterine with cephalic presentation and antegrade cardiac and activity, 144 bpm. Appropriate adequate visualization of the LVOT, RVOT and four-chamber view seen currently. Gestational age of 24 weeks, 4 days with a estimated delivery date of November 28, 2025. IMPRESSION: Appropriate cardiac and outflow tract anatomy, appropriate for this age. TRANSCRIBED BY: ELECTRONICALLY SIGNED BY: Junito Alas MD CBC W/ AUTO DIFF Collected: 10:16 AM Status: F Source: [facility] TYPE CODE TESTS RESULT OUT OF RANGE REFERENCE UNITS LAB [id number](LOINC) WBC 10.1 Normal 4.0-11.0 E9/L LAB 99241166(LOINC) RBC 3.8 Low 4.3-5.9 E12/L LAB 67590775(LOINC) HGB 11.4 Low 12.0-16.0 gm/dL LAB 37838919(LOINC) Hct 33.1 Low 34.0-46.0 % LAB 45508614(LOINC) RDW 12.9 Normal 10.9-14.2 % LAB 37530531(LOINC) MCH 29.9 Normal 27.0-34.0 pg LAB 72618814(LOINC) MCHC 34.4 Normal 31.4-36.0 gm/dL LAB [id number](LOINC) MCV 86.7 Normal 80.0-100.0 fL LAB 53219221(LOINC) MPV 8.1 Normal 6.4-10.8 fL LAB 51430258(LOINC) Platelet 294.0 Normal 150.0-500.0 E9/ L LAB 03070932(LOINC) Neutro Auto 74.2 Normal 36.0-75.0 % LAB 40551105(LOINC) Lymph Auto 19.6 Normal 14.0-50.0 % LAB 65817925(LOINC) [place]land Auto 4.6 Normal 4.0-14.0 % LAB 45766474(LOINC) Eos Auto 1.0 Normal 0.0-8.0 % LAB 95474111(LOINC) Basophil Auto 0.6 Normal 0.0-2.0 % LAB 44073357(LOINC) Neutro Absolute 7.5 Normal 2.0-7.5 E9/L LAB 33010282(LOINC) Lymph Absolute 2.0 Normal 1.0-4.0 E9/L LAB 87152163(LOINC) [place] Absolute 0.5 Normal 0.2-1.0 E9 /L LAB 80490861(LOINC) Eos Absolute 0.1 Normal 0.0-0.5 E9/ L LAB 02595490(LOINC) Basophil Absolute 0.1 Normal 0.0-0.2 E9/L Performed By: #### [id number] # ### [facility] [address] [place] [address] GEST SCR GLU 1 HR Collected: 10:16 AM Status: F Source: [facility] TYPE CODE TESTS RESULT OUT OF RANGE REFERENCE UNITS LAB [id number]([facility]) Glucose Gest Scr 1Hr 155 High 55-140 mg/dL Performed By: #### [id number] #### [facility] [address] [place] [address] TIBC CALCULATED Collected: 5 10:16 AM Status: F Source: [facility] TYPE CODE TESTS RESULT OUT OF RANGE REFERENCE UNITS LAB [id number]([facility]) TIBC 637 High 250-400 microgra m/ dL LAB 05358192([facility]) Transferrin 455 High 200-370 mg/d L Performed By: #### [id number] #### [facility] [address] [id number] IRON Collected: 5 10:16 AM Status: F Source: [facility] TYPE CODE TESTS RESULT OUT OF RANGE REFERENCE UNITS LAB 65808741([facility]) Iron 55 Normal 35-153 microgra m/ dL Performed By: #### [id number] # ### [facility] [address] 2434357 VIT B12 Collected: 5 10:16 AM Status: F Source: [facility] TYPE CODE TESTS RESULT OUT OF RANGE REFERENCE UNITS LAB 36007833(LOINC) Vitamin B12 Lvl 205 Normal 50-1500 pg/mL Performed By: #### [id number] # ### [facility] [address] [place] [address] 56411 FOLATE Collected: 5 10:16 AM Status: F Source: [facility] TYPE CODE TESTS RESULT OUT OF RANGE REFERENCE UNITS LAB 74006880(LOINC) Folate Lvl >22.3 Normal >=6.7 ng/mL Performed By: #### [id number] # ### [facility] [address] [place] [address] 10376 FERRITIN Collected: 5 10:16 AM Status: F Source: [facility] TYPE CODE TESTS RESULT OUT OF RANGE REFERENCE UNITS LAB 47377758(LOINC) Ferritin Lvl 7 Low 11-307 ng/ mL Performed By: #### [id number] # ### [facility] [address] [place] [address] 64089 LIPID PANEL Collected: 5 9:43 AM Status: F Source: [facility] TYPE CODE TESTS RESULT OUT OF RANGE REFERENCE UNITS LAB 66912437(LOINC) Chol 239 High 120-200 mg/dL LAB 00958326(LOINC) HDL 88 Unknown mg/dL Result Comment: '>= 60 LOW R ISK' '<= 40 HIGH RISK' LAB 77957430(LOINC) LDL Direct 144 High <=129 mg/dL LAB 83776841(LOINC) Trig 202 High <=149 mg/dL LAB 83789829(LOINC) VLDL 40 Normal 7-40 mg/dL Performed By: #### [id number] # ### [facility] [address] [place] [address] 83314 CBC W/ AUTO DIFF Collected: 5 9:43 AM Status: F Source: [facility] TYPE CODE TESTS RESULT OUT OF RANGE REFERENCE UNITS LAB 26367760(LOINC) WBC 12.8 High 4.0-11.0 E9/L LAB 41704204(LOINC) RBC 3.7 Low 4.3-5.9 E12/L LAB 50174649(LOINC) HGB 11.1 Low 12.0-16.0 gm/dL LAB 16732427(LOINC) Hct 31.9 Low 34.0-46.0 % LAB 04251054(LOINC) RDW 13.0 Normal 10.9-14.2 % LAB 62470320(LOINC) MCH 29.9 Normal 27.0-34.0 pg LAB 39478800(LOINC) MCHC 34.8 Normal 31.4-36.0 gm/dL LAB 32831471(LOINC) MCV 85.7 Normal 80.0-100.0 fL LAB 23876463(LOINC) MPV 8.0 Normal 6.4-10.8 fL LAB 43459564(LOINC) Platelet 307.0 Normal 150.0-500.0 E9/ L LAB 24641007(LOINC) Neutro Auto 76.1 High 36.0-75.0 % LAB 90905915(LOINC) Lymph Auto 16.2 Normal 14.0-50.0 % LAB 98267678(LOINC) Midland Auto 7.0 Normal 4.0-14.0 % LAB 94820405(LOINC) Eos Auto 0.5 Normal 0.0-8.0 % LAB 66543515(LOINC) Basophil Auto 0.2 Normal 0.0-2.0 % LAB 22200994(LOINC) Neutro Absolute 9.7 High 2.0-7.5 E9/L LAB 16368341(LOINC) Lymph Absolute 2.1 Normal 1.0-4.0 E9/L LAB 53309122(LOINC) [place] Absolute 0.9 Normal 0.2-1.0 E9 /L LAB 47081215(LOINC) Eos Absolute 0.1 Normal 0.0-0.5 E9/ L LAB 01609068(LOINC) Basophil Absolute 0.0 Normal 0.0-0.2 E9/L Performed By: #### [id number] # ### [facility] [address] [place] [address] EGFR Collected: 5 9:43 AM Status: F Source: [facility] TYPE CODE TESTS RESULT OUT OF RANGE REFERENCE UNITS LAB 78291445([facility]) eGFR 123 Normal >=59 mL/min/1 .7 3 m2 Performed By: #### [id number] #### [facility] [address] [place] [address] CMP Collected: 08/01/2025 9:43 AM Status: F Source: [facility] TYPE CODE TESTS RESULT OUT OF RANGE REFERENCE UNITS LAB 75318477([facility]) Glucose Lvl 92 Normal 55-199 mg/d L LAB 51590991([facility]) BUN 11 Normal 5-21 mg/dL LAB 8000776([facility]) Creatinine 0.6 Normal 0.5-1.3 mg/dL LAB 09346765([facility]) Calcium Lvl 8.9 Normal 8.9-11.1 mg/ dL LAB 88421813([facility]) Sodium Lvl 136 Normal 135-145 mmol/ L LAB 82050841([facility]) Potassium Lvl 3.7 Normal 3.5-5.3 mm ol/L LAB 82972903([facility]) Chloride 104 Normal 101-111 mmol/L LAB 63355187([facility]) CO2 20 Low 21-31 mmol/L LAB 51659375([facility]) Alk Phos 78 Normal 21-98 Int._Un it /L LAB 70475275([facility]) Bili Total 0.8 Normal 0.0-1.1 mg/dL LAB 05193612([facility]) Albumin Lvl 3.8 Normal 3.3-5.0 gm/d L LAB 89226798([facility]) Total Protein 6.8 Normal 6.0-7.8 gm /dL LAB 46330375([facility]) ALT 21 Normal 6-46 Int._Uni t /L LAB 89822284([facility]) AST 17 Normal 5-43 Int._Uni t /L LAB 62608249([facility]) BUN/Creat Ratio 18 Normal 10-20 No Units LAB 31928957([facility]) AGAP 16 Normal 6-16 mEq/L LAB 35971230([facility]) Globulin 3.0 Normal 1.4-4.0 gm/dL LAB 90883610([facility]) A/G Ratio 1.3 Normal 1.1-2.2 Performed By: #### [id number] # ### [facility] [address] [place] [address] US OB 14+ WEEKS ANATOMY SCAN Observed: 0 07/15/2025 2:28 PM Status: F Source: [facility] EPIC Order Comment: US OB ANATOMY SINGLE W US OB CERVICAL LENGTH Estimated Date of Delivery: 11/28/25 Gestational Age as of 06/22/2025: 17w2d EXAM: US OB 14+ WEEKS ANATOM Y SCAN HISTORY: anatomy. COMPARISON: Ob ultrasound 05/01/2025. TECHNIQUE: Two-dimensional transabdominal grayscale ultrasound imaging of the pelvis was performed. FINDINGS: Gestation: Single Presentation: Breech Cardiac Activity: 149 beats per minute Placental Location: Anterior with no sonographic abnormalities identified. Distance from Placental Tip to Cervix: 2.7 cm Cervical Length: 4.4 cm Amniotic Fluid: Appears adequate MEASUREMENTS: BPD: 4.9 cm EGA: 20 weeks 5 days HC: 18.3 cm EGA: 20 weeks 5 days AC: 16.1 cm EGA: 21 weeks 2 days FL: 3.3 cm EGA: 20 weeks 2 days HC/AC Ratio: 1.13 The gestational age by today's ultrasound is 20 weeks 5 days (+/- 10 days gestation). Estimated Weight: 378 grams, +/- 57 grams ( 0 lb 13 oz). Weight Percentile for gestational age: 58 % ANATOMY C-Spine: Unremarkable T-Spine: Unremarkable L-Spine: Unremarkable Sacrum: Unremarkable Four Chamber Heart: Unremarkable LVOT: Not visualized RVOT: Not visualized Stomach: Unremarkable Kidneys: Unremarkable Bladder: Unremarkable Diaphragm: Unremarkable Cord insertion: Unremarkable Cord vessels: Three Lateral Ventricles: Unremarkable Cerebellum: Unremarkable Cisterna Magna: Unremarkable Posterior Fossa: Unremarkable Right Femur: Unremarkable Left Femur: Unremarkable Right Tib/Fib: Unremarkable Left Tib/Fib: Unremarkable Right Rad/Ulnar: Unremarkable Left Rad/Ulnar: Unremarkable Right Humerus: Unremarkable Left Humerus: Unremarkable Nose/Lips: Unremarkable Profile: Unremarkable Orbits: Unremarkable IMPRESSION: 1. Single, live intrauterine gestation 20 weeks, 4 days by LMP. Today's ultrasound measurements correlate with a gestational age of 20 weeks 5 days. Estimated weight is 378 grams, +/- 57 grams ( 0 lb 13 oz) which correlates to 58 %. WEI by today's ultrasound is 11/27/2025. 2. Unremarkable anatomy with non-visualization of the outflow tracts. A short-term follow-up ultrasound is recommended. Interpreted by: Electronically signed by TRAVIS RUEDA II, MD, PHD at 16-Jul-2025 08:07:07 AM [facility] PROGESTERONE Collected: 03/13/2025 12:55 PM Status: F Source: [facility] TYPE CODE TESTS RESULT OUT OF RANGE REFERENCE UNITS LAB [id number](LOINC ) Progesterone Lvl 31.35 Unknown ng/mL Result Comment: 'F NONPREGNA NT FOLLICULAR = 0.10 - 0.60' 'LUTEAL = 3.00 - 17.5' 'MIDLUTEAL = 3.30 - 18.6' 'POST-MENOPAUSE = 0.10 - 0.40' '-FIRST TRIMESTER = 8.30 - 66.5' 'SECOND TRIMESTER = 18.9 - 66.1' 'THIRD TRIMESTER = 35.8 - 312.4' 'MALES = 0.14 - 2.06' Performed By: #### [id number] # ### [facility] [address] [place] [address] PROGESTERONE Collected: 5 3:23 PM Status: F Source: [facility] TYPE CODE TESTS RESULT OUT OF RANGE REFERENCE UNITS LAB PROG Progesterone 0.2 . ng/mL Result Comment: Follicular p hase 0.1 - 0.9 Luteal phase 1.8 - 23.9 Ovulation phase 0.1 - 12.0 First trimester 11.0 - 44.3 Second trimester 25.4 - 83.3 Third trimester 58.7 - 214.0 Postmenopausal 0.0 - 0.1 Performed at: - [facility] [address] [id number] Food And Beverage Service Manager: Cm Sandoval PhD, Phone: [phone] PERFORMED BY: [facility] [address] [place] [address] PATHOLOGIST CAN MARKER ARNULFO THOMAS M.D. Performed By: #### PROG #### [facility] , US TRANSVAGINAL NON-OB Observed: 025 4:21 PM Status: F Source: [facility] Exam Date/Time: 01/22/2025 16:22 EST Reason for Exam: N94.6 Report PLEASE SEE US Pelvis Non-OB Complete REPORT DATED: 01/22/2025. Ordering Provider: Jony POP FINAL REPORT Dictated: 01/27/2025 10:11 am Siddharth Foy MD Signed (Electronic Signature): 01/27/2025 10:11 am Signed by: Siddharth Foy MD Transcribed by: ELOISA Technologist: GIO US PELVIS NON-OB COMPLETE Observed: 12/28 4:00 PM Status: F Source: [facility] Exam Date/Time: 01/22/2025 16:24 EST Reason for [...] Left Ovary Volume: 4.5 cm3 Ordering Provider: Jony POP FINAL REPORT Dictated: 01/22/2025 5:50 pm Ramsey Gonzalez MD Signed (Electronic Signature): 01/22/2025 5:50 pm Signed by: Ramsey Gonzalez MD Transcribed by: ELOISA Technologist: GIO ALLERGIES DATE TYPE / CODE NAME / CODE REACTION SEVERITY SOURCE 09/02/2020 Drug Allergy/5821721 02(SNOMED CT) No Known Allergies/[id number]( RXNORM) Unknown [facility] Drug Class/761599041 (SNOMED CT) NO KNOWN ALLERGIES [facility] /609047551(SN OMED CT) No Known Medication Allergies [facility] ENCOUNTERS ADMIT/DISCHARGE ACCOUNT NUMBER ADMITTING ENCOUNTER CLASS LOCATION SOURCE 08/24/2025/08/24/20 [id number] Ambulatory Buildin 4 [facility] 08/15/2025/08/15/20 [id number] MARBELLA HUNTER [facility] 08/15/2025 [id number] MARBELLA HUNTER [facility] 08/12/2025/08/12/20 [id number] Ambulatory Building:NOM S [facility] OB [facility] 08/12/2025/08/12/20 [id number] Ambulatory Building:NOM S [facility] OB [facility] 08/12/2025/08/12/20 [id number] Jony POP [facility] 08/12/2025 [id number] Jony POP Ambulatory [facility] 08/12/2025/08/12/20 [id number] Yomaira CHOUDHARY Ambulatory [facility] : LAB [facility] 08/12/2025 [id number] Yomaira CHOUDHARY Ambulatory [facility]FT LAB [facility] 08/01/2025 [id number] Yomaira CHOUDHARY Ambulatory [facility] 08/01/2025/08/01/20 [id number] Yomaira CHOUDHARY Ambulatory [facility] 07/30/2025/07/30/20 [id number] Ambulatory Building:NOM S [facility] EPIC 07/15/2025/07/15/20 [id number] Ambulatory Building:NOM S [facility] OB [facility] EPIC 07/15/2025/07/15/20 25 [id number] Ambulatory Building:NOM S [facility] OB [facility] EPIC 06/22/2025/06/22/20 [id number] Ambulatory Building:NOM S [facility] OB [facility] 05/25/2025/05/25/20 25 [id number] Ambulatory Building:NOM S [facility] OB [facility] 05/01/2025/05/01/20 25 [id number] Ambulatory Building:NOM S [facility] OB [facility] 03/13/2025/03/13/20 [id number] Jony POP Ambulatory [facility] LAB [facility] 03/13/2025 [id number] Jony POP Ambulatory [facility] :FT LAB [facility] 02/02/2025/02/03/20 [id number] [facility] 01/22/2025/01/22/20 [id number] Jony POP Ambulatory [facility] :FT [facility] 01/19/2025/01/19/20 25 [id number] Ambulatory Building:NOM S [facility] 12/30/2024/12/30/19 [id number] Ambulatory Building:NOM S [facility] FUNCTIONAL STATUS No Functional Status Records Found EQUIPMENT No Equipment Records Found PAYERS ENCOUNTER GUARANTOR PAYER SUBSCRIBER SOURCE 08/24/2025 DRISS JONES: [place], [place] [address]Nos: () [place] [place] [employer] Number: [id number] Date:2024-07-27 DRISS JONES: [id number] [place], [place] [address]Qmx: (HP) () [facility] 08/15/2025 DRISS JONES: [facility] STTel: [phone]~~[phone] (HP) Primary Insurance:MEDICAL MUTUALPolicy Number: [id number] Date:[id number] [address] [address]QZ: DRISS CISNEROS [facility] 08/12/2025 DRISS Sanchez MARCIANOONEGLYDOB: [place] [id number]: (HP) Primary Insurance:MEDICAL MUTUALPolicy Number: [id number] Date:2024-07-27 DRISS Sanchez MARCIANOONEGLYDOB: [id number] [place] [id number] [facility] 08/12/2025 DRISS Sanchez MARCIANOONEGLYDOB: [address]: (HP) Primary Insurance:MEDICAL MUTUALPolicy Number: [id number] Date:2024-07-27 DRISS Sanchez MARCIANONORMLYDOB: [id number] [place] [id number] [facility] 08/12/2025 DRISS Sanchez MARCIANOONEGLYDOB: [facility] STTel: [phone]~~[phone] (HP) Primary Insurance:MEDICAL MUTUALPolicy Number: [id number] Date:[id number] [address] [address]ES: DRISS CISNEROS [facility] 08/12/2025 DRISS GARCIAONEGLYDOB: [facility] STTel: [phone]~~[phone] (HP) Primary Insurance:MEDICAL MUTUALPolicy Number: [id number] Date:5744-02-14MM [address] [address]DW: DRISS CISNEROS [facility] 08/01/2025 DRISS Sanchez MCCONEGLYDOB: [facility] STTel: [phone]~~[phone] (HP) Primary Insurance:MEDICAL MUTUALPolicy Number: [id number] Date:3784-37-24[address] [address]IO: DRISS CISNEROS [facility] 07/30/2025 DRISS Sanchez MARCIANOONEGLYDOB: [place] [id number]: (HP) Primary Insurance:MEDICAL MUTUALPolicy Number: [id number] Date:2024-07-27 DRISS Sanchez MARCIANOONEGLYDOB: [id number] [place] [address] [facility] EPIC 07/15/2025 DRISS Sanchez MARCIANOONEGLYDOB: [place] [address]Iaf: (HP) Primary Insurance:MEDICAL MUTUALPolicy Number: [id number] Date:2024-07-27 DRISS Sanchez MARCIANOONEGLYDOB: [id number] [place] [address] [facility] EPIC 07/15/2025 DRISS Sanchez MARCIANOONEGLYDOB: [place] [address]Wpe: (HP) Primary Insurance:MEDICAL MUTUALPolicy Number: [id number] Date:2024-07-27 DRISS Sanchez MARCIANOONEGLYDOB: [id number] [place] [address] [facility] EP[facility] 06/22/2025 DRISS Sanchez MARCIANOONEGLYDOB: [place] [address]Kzq: (HP) Primary Insurance:MEDICAL MUTUALPolicy Number: [id number] Date:2024-07-27 DRISS GARCIAONEGLYDOB: [id number] [place] [address] [facility] EPIC 05/25/2025 DRISS GARCIAONEGLYDOB: [place] [address]Fcz: (HP) Primary Insurance:MEDICAL MUTUALPolicy Number: [id number] Date:2024-07-27 DRISS Sanchez MARCIANOONEGLYDOB: [id number] [place] [address] [facility] EPIC 05/01/2025 DRISS Sanchez MARCIANOONEGLYDOB: [place] [address]Zwg: (HP) Primary Insurance:MEDICAL MUTUALPolicy Number: [id number] Date:2024-07-27 DRISS GARCIAONEGLYDOB: [id number] [place] [address] [facility] EPIC 03/13/2025 DRISS GARCIAONEGLYDOB[facility] [id number] (HP) Primary Insurance:MEDICAL MUTUALPolicy Number: [id number] Date:[id number] [address]CV: DRISS Sanchez BLAYNE [facility] 02/02/2025 Driss Sanchez Cl[address]ij08 [place] [address]Xqi: () Primary Insurance:MMOPolicy Number: [id number] Date:[id number] [id number] [place] [address]IN: Driss Sanchez MarcianooneglyDOB: [id number] [place] [address]Auw: (HP) [facility] 02/02/2025 Secondary Insurance:Self PayPolicy Number: Effective Date:2025-02-02 NOT GIVENUNK [facility] 01/22/2025 DRISS Sanchez BLAZEB: [facility] STTel: [phone]~~[phone] () Primary Insurance:MEDICAL MUTUALPolicy Number: [id number] Date:[id number] [address]HN: DRISS CISNEROS [facility] 01/19/2025 DRISS Daniel THAKURB: [place] [id number]: () Primary Insurance:MEDICAL MUTUALPolicy Number: [id number] Date:2024-07-27 DRISS Daniel THAKURB: [id number] [place] [address] [facility] 12/30/2024 DRISS PETIT: [place] [address]Fkw: () Primary Insurance:MEDICAL MUTUALPolicy Number: [id number] Date:2024-07-27 DRISS PETIT: [id number] [place] [address] [facility] EPIC SOCIAL HISTORY No Social History Records Found FAMILY HISTORY No Family History Records Found ADVANCE DIRECTIVES No Advanced Directives Records Found INFORMATION SOURCE DATE CREATED AUTHOR AUTHOR'S ANUEL GIMENEZ 08/25/2025 MICHAEL
--- OUTSIDE RECORDS SUMMARY | 2025-08-24 13:30 | XMS_ITS | Encounter Summary ---
Author Organization [facility] tem Address [facility]-[id number] [address] [place] [address] Care Team Providers Care Nutrition Educator Name Role Phone Cruz Rodríguez MD Primary Care Provider [phone] Reason for Visit * Reason Comments Gestational Diabetes * Consultation (Routine) - Pending Review Specialty Diagnoses / Procedures Referred By Michaela t Referred To Contact Maternal and Medicine Diagnoses Gestational diabetes mellitus (GDM) in second trimester, gestational diabetes method of control unspecified Nathan Pop, DO [address] [place] [address] [place] [address] Phone: tel: fax: Maternal- Medicine at [facility] [address] [place] [address] Phone: tel: fax: Referral ID Status Reason Start Date Expiration Date Visits Requested Visits Authorized [id number] Pending Review Specialty Services Required 08/20/2025 08/20/2026 1 1 Encounter Details Date Type Department Care Team (Late st Contact Info) Description 08/24/2025 1:30 PM EDT Support Visit Maternal- Medicine at [facility] [address] [place] [address] Teena Sarmiento RN [address] [address] Kerline Steiner, RAYNA [address] [place] [address] Gestational diabetes mellitus (GDM) in second trimester, [...] 09/10/2025 9:45 AM EDT Appointment Maternal Medicine [place] [address] [address] 09/10/2025 11:00 AM EDT Telemedicine Maternal Medicine [place] [address] [address] Quynh Clements MD [address] [address] documented as of this encounter Visit Diagnoses Diagnosis Gestational diabetes mellitus (GDM) in second trimester, gestational diabetes method of control unspecified documented in this encounter Care Teams Nutrition Educator Relationship Specialty Start Date End Date Cruz Rodríguez MD [address] [place] [address] PCP - General Family Medicine 12/02/18 documented as of this encounter
--- OUTSIDE RECORDS SUMMARY | 2025-08-25 08:02 | XMS_ITS | Encounter Summary ---
Author Organization [email or web address] tem Address [facility]-[id number] [address] [place] [address] Care Team Providers Care Chief Medical Officer Name Role Phone Cruz Rodríguez MD Primary Care Provider [phone] Encounter Details Date Type Department Care Team (Latest Contact Info) Description 08/23/2025 Travel Social History Tobacco Use Types Packs/Day [...] 09/10/2025 9:45 AM EDT Appointment Maternal Medicine [place] [address] [facility] [address] [place] [address] 09/10/2025 11:00 AM EDT Telemedicine Maternal Medicine [place] [address] [facility] 4 [place] [address] Quynh Clements MD [address] [facility], [address] [place] [address] documented as of this encounter Visit Diagnoses Not on filedocumented in this encounter Care Teams Chief Medical Officer Relationship Specialty Start Date End Date Cruz Rodríguez MD [address] [place] [address] PCP - General Family Medicine 12/02/18 documented as of this encounter
--- OUTSIDE RECORDS SUMMARY | 2025-08-25 08:02 | XMS_ITS | Encounter Summary ---
Author Organization [facility] Address [address] [facility] [place] [address] Care Team Providers Care Chief Data Officer Name Role Phone Cruz Rodríguez MD Unavailable [phone] Cruz Rodríguez MD Primary Care Provider [phone] Cruz Rodríguez MD Unavailable + [phone] [employer] [facility] INSPECTOR [employer] Unavailable Trista Thao INSPECTOR [employer] Unavailable [phone] Eliceo Beltran DO Primary Care Provider [phone] Eliceo Beltran DO Unavailable [phone] Encounter Details Date Type Department Care Team (Late st Contact Info) Description 09/17/2023 Abstract [facility] [place] [facility] [address] [place] [address] Cruz Rodríguez MD [address] [place] [address] Social History Tobacco Use Types Packs/Day Years [...] How often do you attend chur or taoist services? Patient declined 09/19/2023 Do you belong to any clubs o r organizations such as gnosticism groups, unions, fraternal or athletic groups, or [...] and heating? 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 on file [...] Info) Description 08/27/2025 3:20 PM EDT Routine [facility] MO[facility] [address] [place] [address] Steph Keane, INSPECTOR [employer]ODU[employer] [address] [facility] [address] [place] [address] 09/07/2025 4:00 PM EDT Office Visit [facility] MO[facility] [address] [place] [address] Nathan Pop DO [address] [facility] [place] [address] documented as of this encounter Visit Diagnoses Not on filedocumented in this encounter Care Teams Chief Data Officer Relationship Specialty Start Date End Date Cruz Rodríguez MD [address] [facility] PCP - [facility] 09/26/2111/25 Cruz Rodríguez MD [address] [facility] PCP - General Family Medicine 04/10/23 02/13/24 Cruz Rodríguez MD [address] [place] [address] PCP - [facility] 02/24/23 4 Eliceo Beltran DO [address] [place] [address] PCP - General Family Medicine 02/14/24 Eliceo Beltran DO [address] [place] [address] [place] [address] PCP - [employer] 07/27/24 11/25/99 [facility] [place] NP [address] [place] [address] Nurse Practitioner Family Medicine 10/05/23 04/14/24 Trista Thao NP [address] [place] [address] Nurse Practitioner Pulmonary Disease 10/05/23 04/14/24 documented as of this encounter
--- OUTSIDE RECORDS SUMMARY | 2025-08-25 08:02 | XMS_ITS | Encounter Summary ---
Author Organization [employer] tem Address [facility]-[id number] [address] [place] [address] Care Team Providers Care Pasteurizer Helper Name Role Phone Cruz Rodríguez MD Primary Care Provider [phone] Encounter Details Date Type Department Care Team (Late st Contact Info) Description 08/25/2020 [facility] [address] [place] [address] [phone] Christen Maxwell RN Social History Tobacco Use Types Packs/Day Years [...] Employment Answer Date Recorded Employment Unknown 05/08/2019 Comments Unknown Sex and Gender Information Value Date Recorded Sex Assigned at Not on file Legal Sex Female 2:55 PM EST Gender Identity Not on file Sexual Orientation Not on file documented as of this encounter Miscellaneous Notes * Telephone Encounter - Christen Maxwell RN - 08/25/2020 4:36 PM EDT Did she ever have her ct?? Does she need appt? Christen Maxwell RN 08/25/20 1637 * Telephone Encounter - Pam Christianson LPN - 08/25/2020 4:36 PM EDT Images from the original note were not included. Maybe a certified letter should be sent next. Pam Christianson LPN 08/26/20 0809 * Telephone Encounter - Christen Maxwell RN - 08/25/2020 4:36 PM EDT Yes needs certified letter * Telephone Encounter - Christen Maxwell RN - 08/25/2020 4:36 PM EDT sent documented in this encounter Plan of Treatment Upcoming Encounters Date Type Department Care Team (Late st Contact Info) Description 09/10/2025 9:45 AM EDT Appointment Maternal Medicine [place] [address] [address] 09/10/2025 11:00 AM EDT Telemedicine Maternal Medicine [place] [address] [address] Quynh Clements MD [address] [address] documented as of this encounter Visit Diagnoses Not on filedocumented in this encounter Care Teams Pasteurizer Helper Relationship Specialty Start Date End Date Cruz Rodríguez MD [address] [place] [address] PCP - General Family Medicine 12/02/18 documented as of this encounter
--- OUTSIDE RECORDS SUMMARY | 2025-08-25 08:02 | XMS_ITS | Clinical Summary ---
Author Organization [employer] tem Address [id number] [address] [place] [address] Care Team Providers Care Aging Room Operator Name Role Phone Cruz Rodríguez MD Primary Care Provider [phone] Allergies No known active allergies Medications rizatriptan OUTDOOR ADVENTURE INSTRUCTOR (MAXALT-OUTDOOR ADVENTURE INSTRUCTOR) 5 mg disintegrating tablet Dissolve 1 tablet (5 mg total) on tongue as needed. 0 10/24/20 18 Active norethindrone ac-eth estradiol (MICROGESTIN 12/15) 1-20 mg-mcg per tablet Take 1 tablet by mouth in the evening. 0 12/01/19 19 Active cholecalciferol, vitamin D3, (VITAMIN D3) 5,000 units capsule Take 1 capsule (5,000 Units total) by mouth in the morning. 0 10/25/20 18 Active cyanocobalamin, vitamin B-12, (VITAMIN B-12) 1,000 mcg tablet extended release Take 1 tablet (1 mg total) by mouth in the morning. 0 10/25/20 18 Active ASCORBIC ACID WITH ISAURO HIPS 500 MG tablet Take 2 tablets (1,000 mg total) by mouth in the morning. 0 10/25/20 18 Active metoprolol succinate XL (TOPROL XL) 25 mg 24 hr tablet Take 1 tablet (25 mg total) by mouth in the morning. Active labetaloL (NORMODYNE) 100 mg tablet Take 1 tablet (100 mg total) by mouth in the morning and 1 tablet (100 mg total) before bedtime. Active fluticasone propionate (FLONASE) 50 mcg/actuation nasal spray Administer 1 spray into each nostril in the morning. Active cetirizine (ZyrTEC) 10 mg tablet Take 1 tablet (10 mg total) by mouth in the morning. Active promethazine (PHENERGAN) 12.5 mg suppository Insert 1 suppository (12.5 mg total) into the rectum every 6 (six) hours as needed for nausea or vomiting. Active PNV no.95-ferrous fumarate-FA () 28 mg iron- 800 mcg tablet Take 1 tablet by mouth in the morning. Active magnesium oxide (MAGOX) 400 mg tablet Take 1 tablet (400 mg total) by mouth in the morning. Active meloxicam (MOBIC) 15 mg tablet Take 1 tablet (15 mg total) by mouth in the morning. Active butalbital-aspirin -caffeine (FIORINAL) 50-325-40 mg per capsule Take 1 capsule by mouth every 4 (four) hours as needed for headaches. Active Active Problems Problem Noted Date Diagnosed Date Diet controlled gestational diabetes mellitus (GDM) in second trimester 08/21/2025 Estimated Date of Delivery Comme nts Yes 11/28/2025 Based on last me nstrual period of 02/21/2025 (Exact Date) Encounters Date Type Department Care Team Description 08/24/2025 1:30 PM EDT Support Visit Maternal- Medicine at [facility] [address] [place] [address] Teena Sarmiento, RN Kerline Steiner, RD Gestational diabetes mellitus (GDM) in second trimester, gestational diabetes method of control unspecified 08/23/2025 Travel 08/22/2025 Travel 08/21/2025 Abstract Maternal- Medicine at [facility] [address] [place] [address] External, Scanning Provider 08/19/2025 Orders Only Maternal- Medicine at [facility] [address] [place] [address] Ref Prov, Not In System 08/18/2025 Abstract Maternal- Medicine at [facility] [address] [address] Quynh Clements MD 08/18/2025 Orders Only Maternal- Medicine at [address] [address] Khalida Garrett RN History of pre-eclampsia in prior , currently (Primary Dx) from Last 3 Months Family History Medical History Relation Name Comments Anemia Father Colon cancer Father Cancer Maternal Grandfather Hypertension Maternal Grandfather Breast cancer Maternal Grandmother Hypertension Mother Colon cancer Paternal Grandfather Relation Name Status Comments Father Maternal Grandfather Maternal Grandmother Mother Alive Paternal Grandfather Social History Tobacco Use Types Packs/Day Years [...] on file Sexual Orientation Not on file Last Filed Vital Signs Vital Sign Reading Time Taken Comments Blood Pressure 158/98 12/10/2018 11:10 AM EST Pulse 118 12/10/2018 11:10 AM EST has been on atenolol in the past Temperature - - Respiratory Rate 14 12/10/2018 11:1 0 AM EST Oxygen Saturation 98% 12/10/2018 11: 10 AM EST Inhaled Oxygen Concentration - - Weight 73 kg (161 lb) 08/24/2025 3:55 PM EDT Height 157.5 cm (5' 2 ) 12/10/2018 11:1 0 AM EST Body Mass Index 29.45 12/10/2018 11:10 AM EST Plan of Treatment Upcoming Encounters Date Type Department Care Team (Late st Contact Info) Description 09/10/2025 9:45 AM EDT Appointment Maternal Medicine [place] [address] [facility] [address] [place] [address] 09/10/2025 11:00 AM EDT Telemedicine Maternal Medicine [place] [address] [facility] [address] [place] [address] Quynh Clements MD [address] [facility], [address] [place] [address] Health Maintenance Due Date Last Done Comments Depression Screening 2007 Tobacco Screening 2007 Adult BMI Screening 2013 08/24/2025 DTaP,Tdap and Td Vaccines (7 - Td or Tdap) 2024 2014, 05/03/2000, 12/29/1997, Additional history exists Influenza Vaccine 07/27/2025 09/11/2014 Pap Smear 08/18/2027 08/18/2024 Medical Devices Not on file Procedures Procedure Name Priority Date/Time Associated Diagnosis Comments GLUCOSE TOLERANCE, 3 HOURS Routine 08/15/2025 GLUCOSE TOLERANCE, FASTING Routine 08/15/2025 GLUCOSE TOLERANCE, 1 HOUR Routine 08/15/2025 SECOND HOUR GLUCOSE TOLERANCE 100 GM LOAD Routine 08/15/2025 ULTRASOUND OFFICE Routine 08/12/2025 3:3 9 PM EDT GLU 1H POST 50G LOAD Routine 08/12/2025 ULTRASOUND OFFICE Routine 07/15/2025 3:4 3 PM EDT AFP SINGLE MARKER SCRN, MATERNAL, SERUM Routine 07/15/2025 10:17 AM EDT UNLISTED LAB TEST Routine 07/04/2025 11: 17 AM EDT from Last 3 Months Results * 2nd hr Glucose Tolerance 100 gm load (08/15/2025) Glucose Tolerance Test 2 Hour 169 MANUALLY TRANSCRIBED RESULTS Blood Venous blood / Unknown us Not In System Ref Prov LAB BLOOD ORDERABLES Jayla l Result Performing Organization Address [facility] de Phone Number MANUALLY TRANSCRIBED RESULTS * Glucose tolerance, 1 hour (08/15/2025) Glucose Tolerance Test 1 Hour 152 MANUALLY TRANSCRIBED RESULTS Blood Venous blood / Unknown us Not In System Ref Prov LAB BLOOD ORDERABLES Jayla l Result Performing Organization Address [facility] de Phone Number MANUALLY TRANSCRIBED RESULTS * Glucose tolerance, 3 hours (08/15/2025) Glucose Tolerance Test 3 Hour 141 MANUALLY TRANSCRIBED RESULTS Blood Venous blood / Unknown us Not In System Ref Prov LAB BLOOD ORDERABLES Jayla l Result Performing Organization Address [facility] de Phone Number MANUALLY TRANSCRIBED RESULTS * Glucose, tolerance fasting (08/15/2025) Glucose Tolerance Test Fasting 82 MANUALLY TRANSCRIBED RESULTS Blood Venous blood / Unknown us Not In System Ref Prov LAB BLOOD ORDERABLES Jayla l Result Performing Organization Address [facility] Phone Number MANUALLY TRANSCRIBED RESULTS * Ultrasound - Office (08/12/2025 3:39 PM EDT) Only the most recent of2 resultswithin the time period is included. Anatomical Region Laterality Modality AMB Ultrasound us Not In System Ref Prov IMG US ORDERABLES Final R esult * Glucose 1h post 50g load (08/12/2025) Glucose, 1 hr PP 50GM dose 155 MANUALLY TRANSCRIBED RESULTS Blood Venous blood / Unknown us Not In System Ref Prov LAB BLOOD ORDERABLES Jayla l Result Performing Organization Address [facility]/ZIP Co de Phone Number MANUALLY TRANSCRIBED RESULTS * AFP Single Marker Scrn, Maternal, Serum (07/15/2025 10:17 AM EDT) Blood Venous blood / Unknown us Not In System Ref Prov LAB BLOOD ORDERABLES Jayla l Result Performing Organization Address City/[facility]/ZIP Co de Phone Number MANUALLY TRANSCRIBED RESULTS * Unlisted Lab Test (07/04/2025 11:17 AM EDT) us Not In System Ref Prov LAB BLOOD ORDERABLES Jayla l Result Performing Organization Address City/[facility]/ZIP Co de Phone Number MANUALLY TRANSCRIBED RESULTS from Last 3 Months Insurance [employer] Care Teams Aging Room Operator Relationship Specialty Start Date End Date Cruz Rodríguez MD [address] [place] [address] PCP - General Family Medicine 12/02/18
--- OUTSIDE RECORDS SUMMARY | 2025-08-25 08:02 | XMS_ITS | Encounter Summary ---
Author Organization [facility] Address [address] [place] [address] Care Team Providers Care Musical Instrument Supervisor Name Role Phone NirajEliceo kauffman Primary Care Provider CharlottecarolEliceo Bryant DAY Unavailable [phone] Encounter Details Date Type Department Care Team (Late st Contact Info) Description 08/20/2025 Telephone [facility] [address] [place] [address] Steph Keane, DEVYN [address] [facility] [place] [address] Social History Tobacco Use Types Packs/Day Years [...] any clubs o r organizations such as scientology groups, unions, fraternal or athletic groups, or [...] Recorded Patient Health Questionnaire-2 Score 0 07/30/2025 [facility] - Occupational Stress Questionnaire Answer Date [...] place to sleep or slept in a usp (including now)? No 09/19/2023 Housing Stability Vital Sign Answer Kang e Recorded In the last 12 months, was t here a time when you were not able to pay the mortgage or rent on time? No 12/29/2024 Number of Times Moved in the Last Year Not on fi le 12/29/2024 At any time in the past 12 [facility], were you homeless or living in a usp (including now)? 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 PVU documented in this encounter Plan of Treatment Upcoming Encounters Date Type Department Care Team (Late st Contact Info) Description 08/27/2025 3:20 PM EDT Routine [facility] [address] [place] [address] Steph Keane, DEVYN [address] [place] [address] 09/07/2025 4:00 PM EDT Office Visit [facility] [address] [place] [address] Nathan Pop DO [address] [place], [place] [id number] documented as of this encounter Visit Diagnoses Diagnosis Gestational diabetes mellitus (GDM), antepartum, gestational diabetes method of control unspecified (HHS-HCC) Elevated glucose tolerance test Impaired glucose tolerance test documented in this encounter Care Teams Musical Instrument Supervisor Relationship Specialty Start Date End Date Eliceo Beltran DO [address] [place] [address] PCP - General Family Medicine 02/14/24 Eliceo Beltran DO [address] [place] [address] PCP - Medical [place] [employer] 07/27/24 11/25/99 documented as of this encounter
--- OUTSIDE RECORDS SUMMARY | 2025-08-25 08:02 | XMS_ITS | Encounter Summary ---
Author Organization [facility] Address [address] [facility] [place] [address] Care Team Providers Care Floriculture Teacher Name Role Phone Cruz Rodríguez MD Unavailable + [phone] Cruz Rodríguez MD Primary Care Provider [phone] Cruz Rodríguez MD Unavailable + [phone] [place] FREIGHT AND PASSENGER AGENT Unavailable Trista Thao FREIGHT AND PASSENGER AGENT Unavailable [phone] Eliceo Beltran DO Primary Care Provider [phone] Eliceo Beltran DO Unavailable [phone] Encounter Details Date Type Department Care Team (Late st Contact Info) Description 09/19/2023 Orders Only [facility] [address] [place] [address] Cruz Rodríguez MD [address] [place] [address] Social History Tobacco Use Types Packs/Day Years [...] week 09/19/2023 How often do you attend [facility] or rastafari services? Patient declined 09/19/2023 Do you belong to any clubs o r organizations such as holiness groups, unions, fraternal or athletic groups, or [...] and heating? 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 on file Not [...] 3:20 PM EDT Routine [facility] [address] [facility] [place] [address] Steph Keane, DEVYN [address] [facility] [place] [address] 09/07/2025 4:00 PM EDT Office Visit [facility] MOODY [address] [facility] [place] [address] Nathan Pop DO [address] [facility] [place] [address] documented as of this encounter Visit Diagnoses Not on filedocumented in this encounter Care Teams Floriculture Teacher Relationship Specialty Start Date End Date Cruz Rodríguez MD [address] [facility] PCP - [facility] 09/26/2111/25 Cruz Rodríguez MD [address] [place] [id number] PCP - General Family Medicine 04/10/23 02/13/24 Cruz Rodríguez MD [address] [place] [address] [address] [facility] 02/24/23 4 Eliceo Beltran DO [address] [place] [address] PCP - General Family Medicine 02/14/24 Eliceo Beltran DO [address] [place] [address] PCP - Medical [place] [employer] 07/27/24 11/25/99 [place] NP [address] [place] [address] Nurse Practitioner Family Medicine 10/05/23 04/14/24 Trista Thao NP [address] [place] [address] Nurse Practitioner Pulmonary Disease 10/05/23 04/14/24 documented as of this encounter
--- OUTSIDE RECORDS SUMMARY | 2025-08-25 08:02 | XMS_ITS | Encounter Summary ---
Author Organization [facility] [employer] [facility] tem Address [id number] [address] [place] [address] Care Team Providers Care Sorter Lumber Straightener Name Role Phone Cruz Rodríguez MD Primary Care Provider [phone] Encounter Details Date Type Department Care Team (Late Contact Info) Description 08/19/2025 Orders Only Maternal- Medicine at [facility] [address] [place] [address] Ref Prov, [place] [address] Social History Tobacco Use Types Packs/Day Years [...] 09/10/2025 9:45 AM EDT Appointment Maternal Medicine [place] [address] [facility] [address] [place] [address] 09/10/2025 11:00 AM EDT Telemedicine Maternal Medicine [place] [address] [facility] [address] [place] [address] Quynh Clements MD [address] [facility], [address] [place] [address] documented as of this encounter Procedures Procedure Name Priority Date/Time Associated Diagnosis Comments AFP SINGLE MARKER SCRN, MATERNAL, SERUM Routine 07/15/2025 10:17 AM EDT UNLISTED LAB TEST Routine 07/04/2025 11: 17 AM EDT ULTRASOUND OFFICE Routine 05/01/2025 10: 15 AM EDT documented in this encounter Results * AFP Single Marker Scrn, Maternal, Serum (07/15/2025 10:17 AM EDT) Blood Venous blood / Unknown us Not In System Ref Prov LAB BLOOD ORDERABLES Jayla l Result Performing Organization Address [facility] de Phone Number MANUALLY TRANSCRIBED RESULTS * Unlisted Lab Test (07/04/2025 11:17 AM EDT) us Not In System Ref Prov LAB BLOOD ORDERABLES Jayla l Result Performing Organization Address [facility] de Phone Number MANUALLY TRANSCRIBED RESULTS * Ultrasound - Office (05/01/2025 10:15 AM EDT) Anatomical Region Laterality Modality AMB Ultrasound us Not In System Ref Prov IMG US ORDERABLES Final R esult documented in this encounter Visit Diagnoses Not on filedocumented in this encounter Care Teams Sorter Lumber Straightener Relationship Specialty Start Date End Date Cruz Rodríguez MD [address] [place] [address] PCP - General Family Medicine 12/02/18 documented as of this encounter
--- OUTSIDE RECORDS SUMMARY | 2025-08-25 08:02 | XMS_ITS | Encounter Summary ---
Author Organization [facility] tem Address [id number] [address] [place] [address] Care Team Providers Care Lighting Designer Name Role Phone Cruz Rodríguez MD Primary Care Provider [phone] Encounter Details Date Type Department Care Team (Late Contact Info) Description 08/21/2025 Abstract Maternal- Medicine at [facility] [address] [facility] [place] [address] External, Scanning Provider Social History Tobacco Use Types Packs/Day Years [...] Department Care Team (Late Contact Info) Description 09/10/2025 9:45 AM EDT Appointment Maternal Medicine [place] [address] [place] [address] 09/10/2025 11:00 AM EDT Telemedicine Maternal Medicine [place] [address] [facility] [address] [place] [address] Quynh Clements MD [address], [address] [place] [address] documented as of this encounter Procedures Procedure Name Priority Date/Time Associated Diagnosis Comments SECOND HOUR GLUCOSE TOLERANCE 100 GM LOAD Routine 08/15/2025 GLUCOSE TOLERANCE, 1 HOUR Routine 08/15/2025 GLUCOSE TOLERANCE, 3 HOURS Routine 08/15/2025 GLUCOSE TOLERANCE, FASTING Routine 08/15/2025 GLU 1H POST 50G LOAD Routine 08/12/2025 documented in this encounter Results * Glucose tolerance, 3 hours (08/15/2025) Glucose Tolerance Test 3 Hour 141 MANUALLY TRANSCRIBED RESULTS Blood Venous blood / Unknown us Not In System Ref Prov LAB BLOOD ORDERABLES Jayla l Result Performing Organization Address City/[facility]/ZIP Co de Phone Number MANUALLY TRANSCRIBED RESULTS * Glucose, tolerance fasting (08/15/2025) Glucose Tolerance Test Fasting 82 MANUALLY TRANSCRIBED RESULTS Blood Venous blood / Unknown us Not In System Ref Prov LAB BLOOD ORDERABLES Jayla l Result MANUALLY TRANSCRIBED RESULTS * Glucose tolerance, 1 hour (08/15/2025) Glucose Tolerance Test 1 Hour 152 MANUALLY TRANSCRIBED RESULTS Blood Venous blood / Unknown us Not In System Ref Prov LAB BLOOD ORDERABLES Jayla l Result Performing Organization Address City/[facility] de Phone Number MANUALLY TRANSCRIBED RESULTS * 2nd hr Glucose Tolerance 100 gm load (08/15/2025) Glucose Tolerance Test 2 Hour 169 MANUALLY TRANSCRIBED RESULTS Blood Venous blood / Unknown us Not In System Ref Prov LAB BLOOD ORDERABLES Jayla l Result Performing Organization Address [facility] de Phone Number MANUALLY TRANSCRIBED RESULTS * Glucose 1h post 50g load (08/12/2025) Glucose, 1 hr PP 50GM dose 155 MANUALLY TRANSCRIBED RESULTS Blood Venous blood / Unknown us Not In System Ref Prov LAB BLOOD ORDERABLES Jayla l Result Performing Organization Address [facility] de Phone Number MANUALLY TRANSCRIBED RESULTS documented in this encounter Visit Diagnoses Not on filedocumented in this encounter Care Teams Lighting Designer Relationship Specialty Start Date End Date Cruz Rodríguez MD [address] [place] [address] PCP - General Family Medicine 12/02/18 documented as of this encounter
--- OUTSIDE RECORDS SUMMARY | 2025-08-25 08:02 | XMS_ITS | Encounter Summary ---
Author Organization [facility] Address [address] [facility] [place] [address] Care Team Providers Care Industrial Roof Plumber Name Role Phone Eliceo Beltran DO Primary Care Provider [phone] Eliceo Beltran DO Unavailable [phone] Encounter Details Date Type Department Care Team (Late st Contact Info) Description 08/17/2025 Abstract [facility] [place] [facility] [address] [facility] [address] [place] [phone] Eliceo Beltran DO [address] [facility] [address] [place] [address] Social History Tobacco Use Types Packs/Day Years [...] often do you attend chur ch or synagogue services? Patient declined 12/29/2024 Do you belong to any clubs o r organizations such as voodoo groups, unions, fraProcureNetworks or athletic groups, or school groups? No [...] Recorded Patient Health Questionnaire-2 Score 0 07/30/2025 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 [place] [address] 09/07/2025 4:00 PM EDT Office Visit [facility] MOODY [address] [facility] [place] [phone] Nathan Pop DO [address] [facility] [place] [address] documented as of this encounter Visit Diagnoses Not on filedocumented in this encounter Care Teams Industrial Roof Plumber Relationship Specialty Start Date End Date Eliceo Beltran DO [address] [facility] [address] [place] [address] PCP - General Family Medicine 02/14/24 Eliceo Beltran DO [address] [place] [address] PCP - Medical [place] [employer] 07/27/24 11/25/99 documented as of this encounter
--- OUTSIDE RECORDS SUMMARY | 2025-08-25 08:02 | XMS_ITS | Encounter Summary ---
Author Organization [facility] Address [id number] [address] [place] [address] Care Team Providers Care Folding Machine Setter Name Role Phone Cruz Rodríguez MD Primary Care Provider [phone] Reason for Referral * Diagnostic Imaging (Routine) - Pending Review Specialty Diagnoses / Procedures Referred By Michaela house Referred To Contact Maternal and Medicine Diagnoses History of pre-eclampsia in prior , currently Procedures US [facility] with or without consult Nathan Pop DO [address] [place] [address] [place] [address] Phone: tel: fax: Maternal- Medicine at [facility] [address] [place] [address] Phone: tel: fax: Referral ID Status Reason Start Date Expiration Date V isits Requested Visits Authorized [id number] Pending Review 08/18/2025 08/18/2026 1 1 Encounter Details Date Type Department Care Team (Late st Contact Info) Description 08/18/2025 Orders Only Maternal- Medicine at [facility] [address] [place] [address] Khalida Garrett RN History of pre-eclampsia in prior , currently (Primary Dx) Social History Tobacco Use Types Packs/Day Years [...] 09/10/2025 9:45 AM EDT Appointment Maternal Medicine [place] [address] [address] 09/10/2025 11:00 AM EDT Telemedicine Maternal Medicine [place] [address] [address] Quynh Clements MD [address] [address] Scheduled Orders Name Type Priority Associated Diagnoses Orde r Schedule US MFM with or without consult Imaging Routine History of pre-eclampsia in prior , currently Expected: 09/17/2025 (Approximate), Expires: 08/18/2026 documented as of this encounter Procedures Procedure Name Priority Date/Time Associated Diagnosis Comments ULTRASOUND OFFICE Routine 08/12/2025 3:39 PM EDT ULTRASOUND OFFICE Routine 07/15/2025 3:43 PM EDT documented in this encounter Results * Ultrasound - Office (08/12/2025 3:39 PM EDT) Anatomical Region Laterality Modality AMB Ultrasound us Not In System Ref Prov IMG US ORDERABLES Final R esult * Ultrasound - Office (07/15/2025 3:43 PM EDT) Anatomical Region Laterality Modality AMB Ultrasound us Not In System Ref Prov IMG US ORDERABLES Final R esult documented in this encounter Visit Diagnoses Diagnosis History of pre-eclampsia in prior , currently - Primary with other poor obstetric history documented in this encounter Care Teams Folding Machine Setter Relationship Specialty Start Date End Date Cruz Rodríguez MD [address] [place] [address] PCP - General Family Medicine 12/02/18 documented as of this encounter
--- OUTSIDE RECORDS SUMMARY | 2025-08-25 08:02 | XMS_ITS | Encounter Summary ---
Author Organization [facility] Address [address] [facility] [place] [address] Care Team Providers Care Rib Cloth Knitter Name Role Phone Eliceo Beltran DO Primary Care Provider Eliceo Beltran DO Unavailable [phone] Reason for Visit * Reason Onset Date Comments Results 08/12/2025 Encounter Details Date Type Department Care Team (Late st Contact Info) Description 08/12/2025 Telephone [facility] [place] [facility] [address] [place] [address] Bill Gould LPN [address] [facility] [place] [address] Results Social History Tobacco Use Types Packs/Day Years [...] How often do you attend chur or denominational services? 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 Advised to call office with any questions or concerns. * Telephone Encounter - Bill Gould LPN - 08/12/2025 4:45 PM EDT Images from the original note were not included. RE: Scan Received: Today DO Bill Zambrano LPN Hemoglobin is a little low, but I think it is consistent. No changes recommended documented in this encounter Plan of Treatment Upcoming Encounters Date Type Department Care Team (Late st Contact Info) Description 08/27/2025 3:20 PM EDT Routine [facility] MO[facility] [address] [place] [phone] Steph Keane, ROASTERMAN [address] [place] [phone] 09/07/2025 4:00 PM EDT Office Visit LANETTE MOODY [address] [place] [phone] Nathan Pop DO [address] [place] [address] documented as of this encounter Visit Diagnoses Not on filedocumented in this encounter Care Teams Rib Cloth Knitter Relationship Specialty Start Date End Date Eliceo Beltran DO [address] [place] [address] PCP - General Family Medicine 02/14/24 Eliceo Beltran DO [address] [place] [address] PCP - Medical [place] [employer] 07/27/24 11/25/99 documented as of this encounter
--- OUTSIDE RECORDS SUMMARY | 2025-08-25 08:02 | XMS_ITS | Encounter Summary ---
Author Organization [facility] Address [address] [facility] [place] [address] Care Team Providers Care Body Coverer Name Role Phone Cruz Rodríguez MD Unavailable + [phone] Cruz Rodríguez MD Primary Care Provider [phone] Cruz Rodríguez MD Unavailable + [phone] [facility] [place] FORESTRY ADVISER Unavailable Trista Thao FORESTRY ADVISER Unavailable [phone] Eliceo Beltran DO Primary Care Provider [phone] Eliceo Beltran DO Unavailable [phone] Encounter Details Date Type Department Care Team (Late st Contact Info) Description 01/15/2024 Clinisync Result Encounter [facility] External Department Unsolicited Jony Pop DO [address] [facility] [place] [address] Social History Tobacco Use Types Packs/Day Years [...] week 09/19/2023 How often do you attend [facility] or jehovah's witness services? 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 Not on file documented as of this encounter Plan of Treatment Upcoming Encounters Date Type Department Care Team (Late st Contact Info) Description 08/27/2025 3:20 PM EDT Routine LANETTE MOODY [address] [place] [address] Steph Keane, DEVYN [address] [facility] [place] [address] 09/07/2025 4:00 PM EDT Office Visit LANETTE MOODY [address] [place] [address] Jony Pop DO [address] [facility] [place] [address] [phone] (work) documented as of this encounter Procedures Procedure Name Priority Date/Time Associated Diagnosis Comments US PELVIS W/ TRANSVAGINAL 01/15/2024 11:42 AM EST documented in this encounter Results * US PELVIS W/ TRANSVAGINAL (01/15/2024 11:42 AM EST) Anatomical Region Laterality Modality Other 01/15/2024 11:4 2 AM EST Narrative 01/15/2024 11:44 AM EST [place] [id number] Ultrasound Report Signed Patient: DRISS COPE MR#: [id number] : 1995 Acct:[id number] Age/Sex: 28 / F ADM Date: 01/15/24 Loc: [facility] Attending Dr: Jony Pop D.O. Ordering Physician: Jony Pop D.O. Date of Service: 01/15/24 Procedure(s): US pelvis w/ transvaginal Accession Number(s): [id number] cc: Jony Pop D.O.; Physician,Non-Staff Katherine [address] [address] Patient Name: DRISS COPE MRN: [id number] date: 1995 Sex: F Assigned Patient Location: [facility] Current Patient Location: [facility] Accession/Order Number: [id number] Exam Date: 01/15/2024 07:57 Report Date: 01/15/2024 [...] Signed By: 01/15/24 1144 DD/ 1142 TD/TT: Loan Expeditor: Procedure Note Radiology, Radiologist, MD - 01/15/2024 [place] [address] Ultrasound Report Signed Patient: DRISS COPE MMR#: [id number] : 1995Acct:[id number] Age/Sex: 28 / FADM Date: 01/15/24 Loc: [facility] Attending Dr: Jony Pop D.O. Ordering Physician: Jony Pop D.O. Date of Service: 01/15/24 Procedure(s): US pelvis w/ transvaginal Accession Number(s): [id number] cc: Jony Pop D.O.; Physician,Non-Staff M.Mark Anthony The [place] [id number] Patient Name: DRISS COPE MRN: [id number] date: 1995 Sex: F Assigned Patient Location: [facility] Current Patient Location: [facility] Accession/Order Number: [id number] Exam Date: 01/15/2024 07:57 Report Date: 01/15/2024 [...] M.D. Signed By:01/15/24 1144 DD/ 1142 TD/TT: Loan Expeditor: us Jony Kiesha DO [facility] Final Result documented in this encounter Visit Diagnoses Not on filedocumented in this encounter Care Teams Body Coverer Relationship Specialty Start Date End Date Cruz Rodríguez MD [address] [place] [address] PCP - [facility] 09/26/2111/25 Cruz Rodríguez MD [address] [place] [address] PCP - General Family Medicine 04/10/23 02/13/24 Cruz Rodríguez MD [address] [place] [address] PCP - [facility] 02/24/23 4 Eliceo Beltran DO [address] [place] [address] PCP - General Family Medicine 02/14/24 Eliceo Beltran DO [address] [place] [address] PCP - Medical [place] [employer] 07/27/24 11/25/99 [facility] [place] NP [address] [place] [address] Nurse Practitioner Family Medicine 10/05/23 04/14/24 Trista Thao NP [address] [place] [address] Nurse Practitioner Pulmonary Disease 10/05/23 04/14/24 documented as of this encounter
--- OUTSIDE RECORDS SUMMARY | 2025-08-25 08:02 | XMS_ITS | Encounter Summary ---
Author Organization [facility] Address [address] [facility] [place] [address] Care Team Providers Care Locker Room Attendant Name Role Phone Eliceo Beltran DO Primary Care Provider [phone] Eliceo Beltran DO Unavailable [phone] Encounter Details Date Type Department Care Team (Late st Contact Info) Description 08/17/2025 Abstract [facility] [place] [facility] [address] [facility] [address] [place] [phone] Eliceo Beltran DO [address] [facility] [address] [place] [address] Social History Tobacco Use Types Packs/Day Years [...] often do you attend chur ch or caodaism services? Patient declined 12/29/2024 Do you belong to any clubs o r organizations such as anabaptist groups, unions, fraEZ-Ticket or athletic groups, or school groups? No [...] place to sleep or slept in a snf (including now)? No 09/19/2023 Housing Stability Vital Sign Answer Kang e Recorded In the last 12 months, was t here a time when you were not able to pay the mortgage or rent on time? No 12/29/2024 Number of Times Moved in the Last Year Not on fi le 12/29/2024 At any time in the past 12 m [facility], were you homeless or living in a snf (including now)? 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 file Not on file documented as of this encounter Plan of Treatment Upcoming Encounters Date Type Department Care Team (Late st Contact Info) Description 08/27/2025 3:20 PM EDT Routine NOM[facility]al[facility] MOODY [address] [place] [address] Steph Keane, DEVYN [address] [facility] [place] [phone] 09/07/2025 4:00 PM EDT Office Visit LANETTE MOODY [address] [place] [phone] Nathan Pop DO [address] [facility] [place] [address] documented as of this encounter Visit Diagnoses Not on filedocumented in this encounter Care Teams Locker Room Attendant Relationship Specialty Start Date End Date Eliceo Beltran DO [address] [facility] [address] [place] [address] PCP - General Family Medicine 02/14/24 Eliceo Beltran DO [address] [place] [address] PCP - Medical [place] [employer] 07/27/24 11/25/99 documented as of this encounter
--- OUTSIDE RECORDS SUMMARY | 2025-08-25 08:02 | XMS_ITS | Patient Health Record ---
Author Organization [facility] Address [address] [place] [address] Care Team Providers Care Hybrid Car Mechanic Name Role Phone Cruz Rodríguez Primary Care Provider Unavailabl e Allergies No Known Allergies Reason For Referral No Information Medications Medication [...] Status W/U Status Risk Notes Problem Tachycardia (9904034) Tachycardia (R00.0) Active confirmed Problem Obesity (252270745) Obesity (BMI 30-39.9) (E66.9) Active confirmed Plan Of Treatment No Information Insurance Providers Payer Name Payer Address Payer Phone Subscriber Number Group Number Insured Name Patient Relationship to Insured Coverage Start Date Coverage End Date [facility] [address] [place] [address] [id number] Driss Woodruff Self - patient is the insured Medical [place] [employer] [place] [address] [place] [address] [id number] Driss Woodruff Self - patient is the insured Medical (General) History Medical History History ICD Code Tachycardia R00.0 Surgical History Surgery Date(Month/Year) right shoulder surgery endometriosis appendectomy Hospitalization History Reason Date(Month/Year) surgeries childbirth
--- OUTSIDE RECORDS SUMMARY | 2025-08-25 08:02 | XMS_ITS | Encounter Summary ---
Author Organization [facility] Address [address] [place] [address] Care Team Providers Care Property Appraiser Name Role Phone NirajEliceo kauffman Bryant DAY Primary Care Provider [phone] Eliceo Beltran DO Unavailable [phone] Encounter Details Date Type Department Care Team (Late st Contact Info) Description 08/17/2025 Telephone [facility] Patti IYERGYRonen [address] [place] [address] Nathan Pop DO [address], [facility] Social History Tobacco Use Types Packs/Day Years [...] How often do you attend chur or scientologist services? Patient declined 12/29/2024 Do you belong to any clubs o r organizations such as tenriism groups, unions, fraNational Technical Systems or athletic groups, or school groups? No [...] Recorded Patient Health Questionnaire-2 Score 0 07/30/2025 [facility] - Occupational Stress Questionnaire Answer [...] in a longterm (including now)? No 09/19/2023 Housing Stability Vital Sign Answer Kang e Recorded In the last 12 months, was t here a time when you were not able to pay the mortgage or rent on time? No 12/29/2024 Number of Times Moved in the Last Year Not on fi le 12/29/2024 At any time in the past 12 m [facility], were you homeless or living in a longterm (including now)? 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 PVU * Telephone Encounter - Virgen Steen LPN - 08/19/2025 3:20 PM EDT 3 hour glucose testing was sent to PCP this was sent to ordering provider for review. * Telephone Encounter - Virgen Steen LPN - 08/17/2025 11:45 AM EDT Patient called and she states that she did get her labs drawn over the weekend and she saw them on the portal and a couple of numbers are high and she is wanting to know if we have these yet. Patientwas advised that it does take a little while for us to get labs from [facility] and that we will have to call to get these results and sometimes they wait until they all are back prior to sending. PVU documented in this encounter Plan of Treatment Upcoming Encounters Date Type Department Care Team (Late st Contact Info) Description 08/27/2025 3:20 PM EDT Routine LANETTE MOODY [address] [place] [address] Steph Keane, DEVYN [address] [place] [address] 09/07/2025 4:00 PM EDT Office Visit LANETTE MOODY [address] [place] [address] Nathan Pop DO [address] [place] [address] documented as of this encounter Visit Diagnoses Not on filedocumented in this encounter Care Teams Property Appraiser Relationship Specialty Start Date End Date Eliceo Beltran DO [address] [facility] [address] [place] [address] PCP - General Family Medicine 02/14/24 Eliceo Beltran DO [address] [facility] [address] [place] [address] PCP - Medical [place] [employer] 07/27/24 11/25/99 documented as of this encounter
--- OUTSIDE RECORDS SUMMARY | 2025-08-25 08:02 | XMS_ITS | Encounter Summary ---
Author Organization [facility] Address [address] [place] [address] Care Team Providers Care Printing Roller Handler Name Role Phone NirajEliceo kauffman Primary Care Provider [phone] Charlottecarol Eliceo Hurtado DO Unavailable [phone] Encounter Details Date Type Department Care Team (Late st Contact Info) Description 03/16/2025 Abstract [facility] OBGYN [address] [place] [phone] Nathan Pop DO [address] [facility] [address] [facility] [address], [facility] Social History Tobacco Use Types Packs/Day [...] any clubs o r organizations such as uatsdin groups, unions, fraWild Wild East, [employer] or athletic groups, or school groups? No [...] Patient Health Questionnaire-2 Score 0 12/30/2024 [facility] of Occupat ional Health - Occupational Stress [...] place to sleep or slept in a penitentiary (including now)? No 09/19/2023 Housing Stability Vital Sign Answer Kang e Recorded In the last 12 months, was t here a time when you were not able to pay the mortgage or rent on time? No 12/29/2024 Number of Times Moved in the Last Year Not on fi le 12/29/2024 At any time in the past [address] [facility], were you homeless or living in a penitentiary (including now)? 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 [address] Steph Keane, POWDER NIPPER [address] [facility] [place] [address] 09/07/2025 4:00 PM EDT Office Visit [facility]S Patti YOUNGN [address] [place] [address] Nathan Pop DO [address] [facility] [address] [place], [place] [address] documented as of this encounter Visit Diagnoses Not on filedocumented in this encounter Care Teams Printing Roller Handler Relationship Specialty Start Date End Date Eliceo Beltran DO [address] [place] [address] PCP - General Family Medicine 02/14/24 Eliceo Beltran DO [address] [place] [address] PCP - Medical [place] [employer] 07/27/24 11/25/99 documented as of this encounter
--- OUTSIDE RECORDS SUMMARY | 2025-08-25 08:02 | XMS_ITS | Encounter Summary ---
Author Organization [facility] tem Address [id number] [address] [place] [address] Care Team Providers Care Real Estate Portfolio Manager Name Role Phone Cruz Rodríguez MD Primary Care Provider [phone] Encounter Details Date Type Department Care Team (Late st Contact Info) Description 08/18/2025 Abstract Maternal- Medicine at [facility] [address] [place] [address] Quynh Clements MD [address] [address] Social History Tobacco Use Types Packs/Day Years [...] 09/10/2025 9:45 AM EDT Appointment [facility] [place] [address] [phone] 09/10/2025 11:00 AM EDT Telemedicine Maternal [facility] [place] [address] [phone] Quynh Clements MD [address] [facility], [address] [place] [phone] documented as of this encounter Procedures Procedure Name Priority Date/Time Associated Diagnosis Comments HIV 1&2 AB/AG SCREEN (P24 AG) Routine 05/04/2025 RUBELLA IGG IMMUNE STATUS Routine 05/04/2025 HEPATITIS C(HCV) ANTIBODY W/REFLEX TO PCR Routine 05/04/2025 DRUG SCREEN, URINE Routine 05/04/2025 HEPATITIS B SURFACE ANTIGEN Routine 05/04/2025 CBC (NO DIFF) Routine 05/04/2025 TYPE AND SCREEN Routine 05/04/2025 HEMOGLOBIN A1C Routine 05/04/2025 documented in this encounter Results * Drug Screen, Urine (05/04/2025) Methadone negative MANUALLY TRANSCRIBED RESULTS Opiates negative MANUALLY TRANSCRIBED RESULTS Amphetamine/Methamp hetamine negative MANUALLY TRANSCRIBED RESULTS Cocaine Metabolite negative M ANUALLY TRANSCRIBED RESULTS Phencyclidine negative MANUAL LY TRANSCRIBED RESULTS Thc Marijuana, Urine negative MANUALLY TRANSCRIBED RESULTS Oxycodone negative MANUALLY TRANSCRIBED RESULTS Barbiturates negative MANUALL Y TRANSCRIBED RESULTS Benzodiazepines negative MANU ALLY TRANSCRIBED RESULTS Urine us Not In System Ref Prov URINE ORDERABLES Final Re sult Performing Organization Address [facility] Co de Phone Number MANUALLY TRANSCRIBED RESULTS * CBC without diff (05/04/2025) Hemoglobin 13.2 MANUALLY TRANSCRIBED RESULTS Hematocrit 39.8 MANUALLY TRANSCRIBED RESULTS Rbc Mcv (Fl) By Automated Count 84.7 MANUALLY TRANSCRIBED RESULTS Platelets 390 MANUALLY TRANSCRIBED RESULTS Blood Venous blood / Unknown us Not In System Ref Prov LAB BLOOD ORDERABLES Jayla l Result Performing Organization Address [facility] de Phone Number MANUALLY TRANSCRIBED RESULTS * Type and screen (05/04/2025) Abo/Rh(D) O Positive MANUALLY TRANSCRIBED RESULTS Antibody Screen negative MANUALLY TRANSCRIBED RESULTS Blood Venous blood / Unknown us Not In System Ref Prov BLOOD BANK TEST ORDERABLE S Final Result Performing Organization Address [facility] de Phone Number MANUALLY TRANSCRIBED RESULTS * Hemoglobin A1c (05/04/2025) Hemoglobin A1C 5.3 4.0 - 6.0 % MANUALLY TRANSCRIBED RESULTS Blood Venous blood / Unknown us Nathan R Kiesha DO LAB BLOOD ORDERABLES Final Resu lt Performing Organization Address [facility] de Phone Number MANUALLY TRANSCRIBED RESULTS * Hepatitis B surface antigen (05/04/2025) Hepatitis B Surface Antigen negative MANUALLY TRANSCRIBED RESULTS Blood Venous blood / Unknown us Not In System Ref Prov LAB BLOOD ORDERABLES Jayla l Result Performing Organization Address [facility] de Phone Number MANUALLY TRANSCRIBED RESULTS * Hepatitis C(HCV) Ab w/ Reflex to PCR (05/04/2025) Hepatitis C Antibody non-reacti ve MANUALLY TRANSCRIBED RESULTS Blood Venous blood / Unknown us Not In System Ref Prov LAB BLOOD ORDERABLES Jayla l Result MANUALLY TRANSCRIBED RESULTS * HIV 1&2 AB/AG Screen (P24 AG) (05/04/2025) HIV 1&2 AB/AG non-reacti ve MANUALLY TRANSCRIBED RESULTS Blood Venous blood / Unknown us Not In System Ref Prov LAB BLOOD ORDERABLES Jayla l Result Performing Organization Address [facility] Co de Phone Number MANUALLY TRANSCRIBED RESULTS * Rubella IGG immune status (05/04/2025) Rubella immune IgG <0.90 MANUALLY TRANSCRIBED RESULTS Blood Venous blood / Unknown us Not In System Ref Prov LAB BLOOD ORDERABLES Jayla l Result Performing Organization Address [facility] Co de Phone Number MANUALLY TRANSCRIBED RESULTS documented in this encounter Visit Diagnoses Not on filedocumented in this encounter Care Teams Real Estate Portfolio Manager Relationship Specialty Start Date End Date Cruz Rodríguez MD [address] [place] [address] PCP - General Family Medicine 12/02/18 documented as of this encounter
--- OUTSIDE RECORDS SUMMARY | 2025-08-25 08:02 | XMS_ITS | Encounter Summary ---
Author Organization [facility] Address [address] [place] [address] Care Team Providers Care Sole Conforming Machine Operator Name Role Phone NirajEliceo kauffman Primary Care Provider Charlottecarol Eliceo Hurtado DO Unavailable [phone] Encounter Details Date Type Department Care Team (Late st Contact Info) Description 08/20/2025 Abstract [facility] [address] [phone] Nathan Pop DO [address] [facility] [facility] [address] [place], [facility] Social History Tobacco Use Types Packs/Day [...] How often do you attend chur or roman catholic services? Patient declined 12/29/2024 Do you belong to any clubs o r organizations such as mu-ism groups, unions, framySBX or athletic groups, or school groups? No [...] Patient Health Questionnaire-2 Score 0 07/30/2025 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 [place] [phone] 09/07/2025 4:00 PM EDT Office Visit [facility] [address] [phone] aNthan Pop DO [address] [place] [address] documented as of this encounter Visit Diagnoses Not on filedocumented in this encounter Care Teams Sole Conforming Machine Operator Relationship Specialty Start Date End Date Eliceo Beltran DO [address] [place] [address] PCP - General Family Medicine 02/14/24 Eliceo Beltran DO [address] [place] [address] PCP - Medical [place] [employer] 07/27/24 11/25/99 documented as of this encounter
--- OUTSIDE RECORDS SUMMARY | 2025-08-25 08:02 | XMS_ITS | Encounter Summary ---
Author Organization [facility] Address [address] [facility] [place] [address] Care Team Providers Care Test Desk Supervisor Name Role Phone Eliceo Beltran DO Primary Care Provider [phone] Eliceo Beltran DO Unavailable [phone] Encounter Details Date Type Department Care Team (Late st Contact Info) Description 08/12/2025 Abstract [facility] [address] [facility] [address] [place] [phone] Eliceo Beltran DO [address] [facility] [address] [place] [address] Social History Tobacco Use Types Packs/Day Years [...] often do you attend chur ch or jew services? Patient declined 12/29/2024 Do you belong to any clubs o r organizations such as temple groups, unions, fraBildero or athletic groups, or school groups? No [...] Recorded Patient Health Questionnaire-2 Score 0 07/30/2025 [facility] - Occupational [...] place to sleep or slept in a assisted (including now)? No 09/19/2023 Housing Stability Vital Sign Answer Kang e Recorded In the last 12 months, was t here a time when you were not able to pay the mortgage or rent on time? No 12/29/2024 Number of Times Moved in the Last Year Not on fi le 12/29/2024 At any time in the past 12 m [facility], were you homeless or living in a assisted (including now)? 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 on file Not on file documented as of this encounter Plan of Treatment Upcoming Encounters Date Type Department Care Team (Late st Contact Info) Description 08/27/2025 3:20 PM EDT Routine [facility] [address] [facility] [address] [address] [phone] Steph Keane, DEVYN [address] [facility] [place] [phone] 09/07/2025 4:00 PM EDT Office Visit [facility]TE MO[facility] [address] [facility] [place] [phone] Nathan Pop DO [address] [facility] [place] [address] documented as of this encounter Visit Diagnoses Not on filedocumented in this encounter Care Teams Test Desk Supervisor Relationship Specialty Start Date End Date Eliceo Beltran DO [address] [facility] [address] [place] [address] PCP - General Family Medicine 02/14/24 Eliceo Beltran DO [address] [place] [address] PCP - Medical [employer] [employer] 07/27/24 11/25/99 documented as of this encounter
--- OUTSIDE RECORDS SUMMARY | 2025-08-25 08:02 | XMS_ITS | Clinical Summary ---
Author Organization [facility] Address [address] [facility] [place] [address] Care Team Providers Care Keyboarding Teacher Name Role Phone Eliceo Beltran DO Primary Care Provider [phone] Eliceo Beltran DO Unavailable [phone] Allergies No known active allergies Medications metoprolol succinate XL (Toprol-XL) 25 MG 24 hr tabletIndication s:Hypertension, unspecified type Take 1 tablet by mouth daily 90 tablet 1 5 Active Vit-Fe Fumarate-FA ( Vitamins) 28-0.8 MG tabletIndication s:, unspecified gestational age ([facility]),Encoun ter for supervision of normal first in first trimester ([facility]) Take 1 tablet by mouth Daily 30 tablet 11 5 05/01/20 26 Active labetalol (Normodyne) 100 MG tabletIndication s:Hypertension, unspecified type Take 1 tablet (100 mg) by mouth in the morning and 1 tablet (100 mg) before bedtime. 60 tablet 5 5 07/30/20 26 Active Lancets Ultra Thin miscIndications: Gestational diabetes mellitus (GDM), antepartum, gestational diabetes method of control unspecified ([facility]),Elevat ed glucose tolerance test 1 each by In Vitro route Daily Use to check FSBS four times daily 150 each 3 5 09/19/20 25 Active Alcohol Swabs (Alcohol Prep Pad) 70 % padsIndications: Gestational diabetes mellitus (GDM), antepartum, gestational diabetes method of control unspecified ([facility]),Elevat ed glucose tolerance test Apply 1 Pad topically Daily Use four times daily to check FSBS. 150 each 3 5 Active Glucose Blood (Blood Glucose Test) stripIndications :Gestational diabetes mellitus (GDM), antepartum, gestational diabetes method of control unspecified ([facility]),Elevat ed glucose tolerance test 1 strip by In Vitro route Daily Use in the morning prior to breakfast, 1 hour after each meal for a total of 4times daily. 150 strip 3 5 09/19/20 25 Active Blood Glucose Monitoring Suppl ([employer]rid[employer]ory[employer] Funding Glucometer) w/Device kitIndications:G estational diabetes mellitus (GDM), antepartum, gestational diabetes method of control unspecified ([facility]),Elevat ed glucose tolerance test 1 kit Daily Use four times daily to check FSBS. In the morning prior to breakfast & 1 hour after each meal for a total of 4times daily. 1 kit 5 08/20/20 Active Active Problems Problem Noted Date Diagnosed Date Diarrhea 03/24/2025 Tachycardia 02/19/2024 Obesity (BMI 30-39.9) 02/19/2024 Acquired equinus deformity of foot 03/29/2023 Displacement of cervical int ervertebral disc without myelopathy 03/29/2023 Dysmenorrhea 03/29/2023 Endometriosis 03/29/2023 Gastroparesis 03/29/2023 Hypertension 03/29/2023 Assessment & Plan (07/30/2025 4:00 PM EDT): Record Blood Pressures 2-4 times weekly and record. Return with readings at next appointment. Call with readings if sees significant changes Intractable migraine without aura and with status [...] Encounters Date Type Department Care Team Description 08/20/2025 Abstract [facility] [address] [place] [address] Nathan Pop, DO 08/20/2025 Telephone [facility] [address] [place] [address] Steph Keane NP 08/17/2025 Abstract [facility] [address] [place] [address] Eliceo Beltran, 08/17/2025 Abstract [facility] [address] [place] [address] Eliceo Beltran, DO 08/17/2025 Telephone [facility] [address] [place] [address] Nathan Pop, 08/12/2025 2:40 PM EDT Routine [facility] [address] [place] [address] Nathan Pop, DO 24 weeks gestation of ([facility]); Second trimester ([facility]); Elevated glucose tolerance test 08/12/2025 2:00 PM EDT [place] [address] Encounter for follow-up ultrasound of anatomy ([facility]) 08/12/2025 Telephone [facility] [address] [place] [address] Bill Gould CUTTER FIRST Results 08/12/2025 Abstract [facility] [address] [place] [address] Eliceo Beltran, DO 08/04/2025 Telephone [facility] [address] [place] [address] Bill Gould LPN Results 07/30/2025 3:40 PM EDT Office Visit [facility] [address] [place] [address] Eliceo Beltran, DO Wellness examination (Primary Dx); Hypertension, unspecified type ; Lipid screening 07/30/2025 Bamboo flowsheet [facility] [address] [place] [address] Eliceo Beltran, DO 07/30/2025 Travel 07/21/20[place] [address] Nathan Pop, DO 07/15/2025 3:30 PM [place] [address] Nathan Pop, DO 20 weeks gestation of ([facility]); Second trimester ([facility]); Diabetes mellitus screening 07/15/2025 2:30 PM EDT [place] [address] Screening, , for anatomic survey ([facility]) 07/15/2025 Clinisync Result Encounter [facility] External Department Unsolicited Nathan Pop, DO 06/25/20[place] [address] Nathan Pop, DO 06/22/2025 2:10 PM [place] [address] Nathan Pop DO Sinusitis, unspecified chronicity, unspecified location (Primary Dx); Second trimester ([facility]); 17 weeks gestation of ([facility]); Screening, , for anatomic survey ([facility]) 06/22/2025 External Result Encounter [facility] External Department Unsolicited Nathan Pop DO 06/22/2025 Bamboo flowsheet [facility] [address] [place] [address] [place] [address] Nathan Pop DO 06/15/2025 Travel 06/09/2025 Telephone [facility] [address] [place] [address] [place] [address] Abbi HinaGODFREY cochran 05/25/2025 2:40 PM EDT Routine [facility] [address] [place] [address] [place] [address] Nathan Pop DO Nonintractable episodic headache, unspecified headache type (Primary Dx); Second trimester ([facility]); 13 weeks gestation of ([facility]) 05/25/2025 Bamboo flowsheet [facility] [address] [place] [address] [place] [phone] Nathan Pop DO from Last 3 Months Immunizations Immunization Administration [...] often do you attend chur ch or pentecostalism services? Patient declined 12/29/2024 Do you belong to any clubs o r organizations such as sabianist groups, unions, fraternal or athletic groups, or [...] 0 07/30/2025 [facility] - Occupational [...] in a chcf (including now)? No 09/19/2023 Housing Stability Vital Sign Answer Kang e Recorded In the last 12 months, was t here a time when you were not able to pay the mortgage or rent on time? No 12/29/2024 Number of Times Moved in the Last Year Not on fi le 12/29/2024 At any time in the past 12 m [facility], were you homeless or living in a chcf (including now)? 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 Not on file Last Filed Vital Signs Vital Sign Reading Time Taken Comments Blood Pressure 138/82 08/12/2025 2:32 PM EDT Pulse 97 07/30/2025 3:36 PM EDT Temperature 36.2 C (97.1 F) 07/30/2025 3:36 PM EDT Respiratory Rate 16 10/23/2023 4:16 PM EST Oxygen Saturation 98% 07/30/2025 3:36 PM EDT Inhaled Oxygen Concentration - - Weight 69 kg (152 lb 1.9 oz) 08/12/2025 2:32 PM EDT Height 157.5 cm (5' 2 ) 07/30/2025 3:36 PM EDT Body Mass Index 27.82 07/30/2025 3:36 PM EDT Plan of Treatment Upcoming Encounters Date Type Department Care Team (Late st Contact Info) Description 08/27/2025 3:20 PM EDT Routine [facility] [address] [place] [address] [place] [address] ENGINEER [address] [facility] [place] [address] 09/07/2025 4:00 PM EDT Office Visit [facility] [address] [facility] [place] [phone] Nathan Pop, [address] [facility] [address] [place], [place] [phone] Health Maintenance Due Date Last Done Comments Influenza Vaccine (#1) 2025 09/11/2014 Pap Smear 08/18/2027 08/18/2024, 07/28, 06/20/2022, Additional history exists Cervical Cancer Screening 09/03/2028 HPV/Cotest 09/03/2028 09/03/2023 Procedures Procedure Name Priority Date/Time Associated Diagnosis Comments POCT URINALYSIS DIPSTICK Routine 08/12/2025 2:39 PM EDT 24 weeks gestation of ([facility]) Second trimester ([facility]) US OB LIMITED 1+ FETUSES Routine 08/12/2025 2:22 PM EDT Encounter for follow-up ultrasound of anatomy ([facility]) AFP, SERUM, OPEN SPINA BIFIDA Routine 07/15/2025 5:07 PM EDT POCT URINALYSIS DIPSTICK Routine 07/15/2025 3:50 PM EDT 20 weeks gestation of ([facility]) Second trimester ([facility]) US OB 14+ WEEKS ANATOMY SCAN Routine 07/15/2025 3:26 PM EDT Screening, , for anatomic survey ([facility]) RECURRENT VAGINITIS (HTRX) Routine 06/22/2025 4:25 PM EDT POCT URINALYSIS DIPSTICK Routine 06/22/2025 2:39 PM EDT Second trimester ([facility]) 17 weeks gestation of ([facility]) POCT URINALYSIS DIPSTICK Routine 05/25/2025 2:56 PM EDT Second trimester ([facility]) PAP SMEAR Routine 08/18/2024 12:00 AM EDT THINPREP PAP AND HPV MRNA E6/E7 W/RFL HPV 16,18/45 Routine 09/03/2023 4:00 PM EDT Well woman exam with routine gynecological exam from Last 3 Months or Most Recently Relevant to Health Maintenance Results * (ABNORMAL) POCT urinalysis dipstick manually resulted (08/12/2025 2:39 PM EDT) Only the most recent of4 [...] - Positive Urine 08/12/2025 2:39 PM EDT us Nathan Kiesha DO POINT OF CARE TEST ENTER/EDIT OR DERABLES Final Result * US OB limited 1+ fetuses (08/12/2025 [...] SIGNED BY: Junito Alas MD us Nathan Kiesha DO IMG OB US PROCEDURES Final Resul t * AFP, SERUM, OPEN SPINA BIFIDA (07/15/2025 5:07 PM EDT) RESULTS Report . [facility] TEST RESULTS: *Screen Negative* . [facility] GEST. AGE ON COLLECTION DATE 20.6 . weeks [facility] GESTAT. AGE BASED ON LMP . [facility] Comment: Recalculations are not recommended when gestational dating by LMP and ultrasound are within 10 days. [age]I [age] . [age] [facility] RACE . [facility] WEIGHT 146 . lbs [facility] INSULIN DEP DIABETES No . [facility]H MULTIPLE GESTATION No . [facility] AFP VALUE 59.2 . ng/mL [facility] AFP MOM 0.95 . [facility] [place] [address] [place] [id number] . [facility] INTERPRETATION Comment . [facility] Comment: Interpretation: Screen Negative This result is screen negative for OSB. The AFP MoM calculated is based on the gestational age provided. MS-AFP can identify up to 80% of open neural tube defects. Closed neural tube defects and some open defects may not be detected by this test. This test does not screen for Down Syndrome or Trisomy 18. If screening for Down Syndrome or Trisomy 18 is desired, contact [facility] to discuss available options. The [employer] recommends amniocentesis be offered to women age 35 and older. COMMENT: Comment . [facility] Comment: Amy Ramos, Ph.D., [facility] Director References: Available Upon Request. Multiples Of Median Cutoffs For AFP Elevations Hsieh 2.5 Black 2.8 IDD 2.0 Twins 4.5 Abbreviation Definitions IDD - Insulin Dep Diabetes OSBR - Open Spina Bifida Risk For further inquiries contact [facility] at [phone]. This test was developed and its performance characteristics determined by [facility]. It has not been cleared or approved by the Food and Drug Administration. Performed at: [address] [id number] Ice Cream Dispenser: Dona Justin [facility], Phone: [phone] 07/15/2025 5:07 PM EDT 07/15/2025 5:10 PM EDT Narrative JENNIFER - 07/18/2025 1:07 AM EDT N N LMP [id number] 2 17 N 1 Y 146 N N N N N White/ us Generic External Data Provider LAB BLOOD ORDERAB LES Final Result TRICIAAR TB * US OB 14+ weeks anatomy scan (07/15/2025 3:26 PM EDT) Anatomical Region Laterality Modality Body Ultrasound 07/16/2025 8:08 AM EDT Narrative 07/16/2025 8:08 AM EDT EXAM: US OB 14+ WEEKS ANATOMY SCAN HISTORY: anatomy. COMPARISON: Ob ultrasound 05/01/2025. [...] II, MD, PHD at 16-Jul-2025 08:07:07 AM [facility] Procedure Note Travis Rueda MD - 07/16/2025 EXAM: US OB 14+ WEEKS ANATOMY SCAN HISTORY: anatomy. COMPARISON: Ob ultrasound 05/01/2025. TECHNIQUE: Two-dimensional transabdominal grayscale ultrasound imaging ofthe pelvis was performed. FINDINGS: Gestation: Single Presentation: Breech Cardiac Activity: 149 beats per minute Placental Location: Anterior with no sonographic abnormalitiesidentified. Distance from Placental Tip to Cervix: 2.7 [...] is 20 weeks 5 days (+/- 10 daysgestation). Estimated Weight: 378 grams, +/- 57 grams [...] gestation 20 weeks, 4 days by LMP. Today'sultrasound measurements correlate with a gestational age of 20 weeks 5days. Estimated weight is 378 grams, +/- 57 grams ( 0 lb 13 oz)which correlates to 58 %. WEI by today's ultrasound is 11/27/2025. 2. Unremarkable anatomy with non-visualization of the outflowtracts. A short-term follow-up ultrasound is recommended. Interpreted by: Electronically signed by TRAVIS RUEDA II, MD, PHD 08:07:07 AM [facility] us Nathan Kiesha DO IMG OB US PROCEDURES Final Resul t * (ABNORMAL) RECURRENT VAGINITIS (HTRX) (06/22/2025 4:25 PM EDT) ATOPOBIUM VAGINAE 0 19.961 - 24.689 ppm 06/24/2025 6:19 AM EDT [facility] ATOPOBIUM VAGINAE Not Detected 19.961 - 24.689 ppm 06/24/2025 6:19 AM EDT [facility] BVAB 2,3 (BACTERIAL VAGINOSIS ASSOCIATED BACTERIA 2, 3); MOBILUNCUS SPP 0 19.961 - 24.689 ppm 06/24/2025 6:19 AM EDT [facility] BVAB 2,3 (BACTERIAL VAGINOSIS ASSOCIATED BACTERIA 2, 3); MOBILUNCUS SPP Not Detected 19.961 - 24.689 ppm 06/24/2025 6:19 AM EDT [facility] RADHA ALBICANS, PARAPSILOSIS, TROPICALIS 0 23.000 - 30.347 ppm 06/24/2025 6:19 AM EDT [facility] RADHA ALBICANS, PARAPSILOSIS, TROPICALIS Not Detected 23.000 - 30.347 ppm 06/24/2025 6:19 AM EDT [facility] RADHA GLABRATA 0 23.000 - 31.618 ppm 06/24/2025 6:19 AM EDT [facility] RADHA GLABRATA Not Detected 23.000 - 31.618 ppm 06/24/2025 6:19 AM EDT [facility] RADHA KRUSEI 0 23.000 - 30.873 ppm 06/24/2025 6:19 AM EDT [facility] RADHA KRUSEI Not Detected 23.000 - 30.873 ppm 06/24/2025 6:19 AM EDT [facility] CHLAMYDIA TRACHOMATIS 0 23.000 - 31.586 ppm 06/24/2025 6:19 AM EDT [facility] CHLAMYDIA TRACHOMATIS Not Detected 23.000 - 31.586 ppm 06/24/2025 6:19 AM EDT [facility] GARDNERELLA VAGINALIS 17.967(A) 19.961 - 24.689 ppm 06/24/2025 6:38 AM EDT [facility] GARDNERELLA VAGINALIS Detected(A) 19.961 - 24.689 ppm 06/24/2025 6:38 AM EDT [facility] MEGASPHAERA (TYPES 1, 2) 0 19.961 - 24.689 ppm 06/24/2025 6:19 AM EDT [facility] MEGASPHAERA (TYPES 1, 2) Not Detected 19.961 - 24.689 ppm 06/24/2025 6:19 AM EDT [facility] NEISSERIA GONORRHOEAE 0 23.000 - 32.587 ppm 06/24/2025 6:19 AM EDT [facility] NEISSERIA GONORRHOEAE Not Detected 23.000 - 32.587 ppm 06/24/2025 6:19 AM EDT [facility] TRICHOMONAS VAGINALIS 0 23.000 - 31.995 ppm 06/24/2025 6:19 AM EDT [facility] TRICHOMONAS VAGINALIS Not Detected 23.000 - 31.995 ppm 06/24/2025 6:19 AM EDT [facility] MYCOPLASMA GENITALIUM 0 19.961 - 24.689 ppm 06/24/2025 6:19 AM EDT [facility] MYCOPLASMA GENITALIUM Not Detected 19.961 - 24.689 ppm 06/24/2025 6:19 AM EDT [facility] Tissue 06/22/2025 4:25 PM EDT 06/24/2025 1:21 AM EDT Nathan Pop DO LAB BLOOD ORDERABLES Final Resul t [facility] [address] [place] [address] * Pap Smear (08/18/2024 12:00 AM EDT) [...] Health Maintenance Insurance [employer] Care Teams Keyboarding Teacher Relationship Specialty Start Date End Date Eliceo Beltran DO [address] [place] [address] PCP - General Family Medicine 02/14/24 Eliceo Beltran DO [address] [place] [address] PCP - Medical [employer] 07/27/24 11/25/99
--- OUTSIDE RECORDS SUMMARY | 2025-08-25 08:02 | XMS_ITS | Encounter Summary ---
Author Organization [facility] Address [address] [place] [address] Care Team Providers Care Electroformer Name Role Phone Cruz Rodríguez MD Unavailable + 54 Cruz Rodríguez MD Primary Care Provider + [phone] Cruz Rodríguez MD Unavailable + [phone] [place] STITCH BONDER MACHINE OPERATOR HELPER Unavailable Trista Thao STITCH BONDER MACHINE OPERATOR HELPER Unavailable [phone] Eliceo Beltran DO Primary Care Provider [phone] Eliceo Beltran DO Unavailable [phone] Encounter Details Date Type Department Care Team (Late st Contact Info) Description 09/10/2023 Abstract [facility] [address] [facility] [address] [place] [phone] Rosio Booth DPM [address] [facility] [address] [place] [address] Social History Tobacco Use Types Packs/Day Years [...] 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 Not [...] 3:20 PM EDT Routine [facility] [address] [place] [phone] Steph Keane, STITCH BONDER MACHINE OPERATOR HELPER [address] [facility] [place] [phone] 09/07/2025 4:00 PM EDT Office Visit [facility] [address] [facility] [place] [address] Nathan Pop DO [address] [facility] [facility] [address] [place], [place] [phone] documented as of this encounter Visit Diagnoses Not on filedocumented in this encounter Care Teams Electroformer Relationship Specialty Start Date End Date Cruz Rodríguez MD [address] [place] [address] PCP - [place] [employer] 09/26/2111/25 Cruz Rodríguez MD [address] [place] [address] PCP - General Family Medicine 04/10/23 02/13/24 Cruz Rodríguez MD [address] [place] [address] PCP - [facility] 02/24/23 4 Eliceo Beltran DO [address] [place] [address] PCP - General Family Medicine 02/14/24 Eliceo Beltran DO [address] [place] [address] PCP - Medical [place] [employer] 07/27/24 11/25/99 [place] NP [address] [place] [address] Nurse Practitioner Family Medicine 10/05/23 04/14/24 Trista Thao, STITCH BONDER MACHINE OPERATOR HELPER [address] [place] [address] Nurse Practitioner Pulmonary Disease 10/05/23 04/14/24 documented as of this encounter
--- OUTSIDE RECORDS SUMMARY | 2025-08-25 08:02 | XMS_ITS | Encounter Summary ---
Author Organization [facility] Address [address] [facility] [place] [address] Care Team Providers Care Police Dispatcher Name Role Phone Cruz Rodríguez MD Unavailable + [phone] Cruz Rodríguez MD Unavailable + [phone] Eliceo Beltran DO Primary Care Provider [phone] Eliceo Beltran DO Unavailable [phone] Encounter Details Date Type Department Care Team (Late st Contact Info) Description 08/25/2024 Orders Only [facility] [address] [place] [address] Virgen Steen LPN [address] [place] [address] Social History Tobacco Use Types Packs/Day [...] often do you attend chur ch or druze services? Patient declined 09/19/2023 Do you belong to any clubs o r organizations such as baptism groups, unions, fraternal or athletic groups, or [...] Recorded Patient Health Questionnaire-2 Score 0 02/19/2024 [facility] - Occupational [...] place to sleep or slept in a alf (including now)? 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 [place] [address] 09/07/2025 4:00 PM EDT Office Visit [facility] [address] [place] [address] Nathan Pop DO [address] [facility] [place] [address] documented as of this encounter Procedures [...] on filedocumented in this encounter Care Teams Police Dispatcher Relationship Specialty Start Date End Date Cruz Rodríguez MD [address] [place] [address] PCP - [place] [employer] 09/26/2111/25 Cruz Rodríguez MD [address] [place] [address] PCP - [facility] 02/24/23 4 Eliceo Beltran DO [address] [place] [address] PCP - General Family Medicine 02/14/24 Eliceo Beltran DO [address] [place] [address] PCP - Medical [place] [employer] 07/27/24 11/25/99 documented as of this encounter
--- OUTSIDE RECORDS SUMMARY | 2025-08-25 08:02 | XMS_ITS | Encounter Summary ---
Author Organization [facility] Address [address] [place] [address] Care Team Providers Care Dancing Instructor Name Role Phone NirajEliceo kauffman Primary Care Provider [phone] Charlottecarol Eliceo Hurtado DO Unavailable [phone] Encounter Details Date Type Department Care Team (Late st Contact Info) Description 05/11/2025 Abstract [facility] [address] [facility] [place] [phone] Nathan Pop DO [address] [facility] [address] [place], [facility] Social History Tobacco Use Types Packs/Day [...] How often do you attend chur or latter day services? Patient declined 12/29/2024 Do you belong to any clubs o r organizations such as moravian groups, unions, fraJambo or athletic groups, or school groups? No [...] Recorded Patient Health Questionnaire-2 Score 0 12/30/2024 [facility] of Occupat ional Health - Occupational Stress [...] in a custodial (including now)? No 09/19/2023 Housing Stability Vital Sign Answer Kang e Recorded In the last 12 months, was t here a time when you were not able to pay the mortgage or rent on time? No 12/29/2024 Number of Times Moved in the Last Year Not on fi le 12/29/2024 At any time in the past 12 m [facility], were you homeless or living in a custodial (including now)? 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 [place] [address] 09/07/2025 4:00 PM EDT Office Visit LANETTE MOODY [address] [facility] [place] [address] Nathan Pop DO [address] [facility] [place] [address] documented as of this encounter Visit Diagnoses Not on filedocumented in this encounter Care Teams Dancing Instructor Relationship Specialty Start Date End Date Eliceo Beltran DO [address] [place] [address] PCP - General Family Medicine 02/14/24 Eliceo Beltran DO [address] [place] [address] PCP - Medical [place] [employer] 07/27/24 11/25/99 documented as of this encounter
--- OUTSIDE RECORDS SUMMARY | 2025-08-25 08:02 | XMS_ITS | Encounter Summary ---
Author Organization [facility] Address [address] [place] [address] Care Team Providers Care Pillow Agent Name Role Phone Cruz Rodríguez MD Unavailable + 54 Cruz Rodríguez MD Primary Care Provider + [phone] Cruz Rodríguez MD Unavailable + [address] FREIGHT BRAKE COUPLER Unavailable Trista Thao RO[address] FREIGHT BRAKE COUPLER Unavailable +[phone] Eliceo Beltran DO Primary Care Provider [phone] Eliceo Beltran DO Unavailable [phone] Encounter Details Date Type Department Care Team (Late st Contact Info) Description 02/13/2024 Clinisync Result Encounter NOMS External Department Unsolicited Jony Pop DO [address] [facility] [place] [address] Social History Tobacco Use Types Packs/Day Years [...] week 09/19/2023 How often do you attend [facility] or caodaism services? Patient declined 09/19/2023 Do you belong to any clubs o r organizations such as tenriism groups, unions, fraternal or athletic groups, or [...] Recorded Patient Health Questionnaire-2 Score 0 10/23/2023 [facility] of Occupat ional Health - Occupational Stress [...] in a penitentiary (including now)? 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 Not on file Not on file documented as of this encounter Plan of Treatment Upcoming Encounters Date Type Department Care Team (Late st Contact Info) Description 08/27/2025 3:20 PM EDT Routine LANETTE MOODY [address] [facility] [place] [address] Steph Keane, DEVNY [address] [facility] [place] [address] 09/07/2025 4:00 PM EDT Office Visit LANETTE MOODY [address] [facility] [place] [address] Jony Pop DO [address] [facility] [place] [address] documented as of this encounter Procedures Procedure Name Priority Date/Time Associated Diagnosis Comments ECG 12-LEAD 02/13/2024 2:55 PM EDT documented in this encounter Results * ECG 12-LEAD (02/13/2024 2:55 PM EDT) Anatomical Region Laterality Modality Other 02/13/2024 2:55 PM EDT Narrative 02/14/2024 6:50 AM EDT The [address] [address] Electrocardiograph Report Signed Patient: DRISS COPE MR#: [id number] : 1995 Acct:[id number] Age/Sex: 28 / F ADM Date: 02/13/24 Loc: [facility] Attending Dr: Jony Pop D.O. Ordering Physician: Jony Pop D.O. Date of Service: 02/13/24 Procedure(s): ECG 12 lead Accession Number(s): [id number] cc: [facility] Test Date: 2024-02-13 Pat Name: DRISS COPE Department: Room: - Gender: Female Superintendent Transportation: : 1995 Requested By: JONY POP Order Number: [id number] Reading MD: RAMSEY ORDAZ Measurements Intervals Solen Rate: 86 P: 31 MS: 133 QRS: 20 QRSD: 89 T: 47 QT: 374 QTc: 449 Interpretive Statements SINUS RHYTHM No previous ECG available for comparison Electronically Signed On 02-14-2024 6:50:27 EDT by RAMSEY ORDAZ Dictated By: Ramsey Ordaz D.O. Signed By: 02/14/24 0650 DD/ 1455 TD/TT: Stitch Bonding Machine Drawer In: Procedure Note Radiology, Radiologist, - 02/14/[address] [address] Electrocardiograph Report Signed Patient: DRISS COPE MMR#: [id number] : 1995Acct:[id number] Age/Sex: 28 / FADM Date: 02/13/24 Loc: PST Attending Dr: Jony Pop D.O. Ordering Physician: Jony Pop D.O. Date of Service: 02/13/24 Procedure(s): ECG 12 lead Accession Number(s): [id number] cc: [facility] Test Date: 2024-02-13 Pat Name: DRISS COPE Department: Room: - Gender: Female Superintendent Transportation: : 1995 Requested By: JONY POP Order Number: [id number] Reading MD: RAMSEY ORDAZ Measurements Intervals [place] Rate: 86 P: 31 MS: 133 QRS: 20 QRSD: 89 T: 47 QT: 374 QTc: 449 Interpretive Statements SINUS RHYTHM No previous ECG available for comparison Electronically Signed On 02-14-2024 6:50:27 EDT by RAMSEY ORDAZ Dictated By: Ramsey Ordaz D.O. Signed By:02/14/24 0650 DD/ 1455 TD/TT: Stitch Bonding Machine Drawer In: us Jony Pop DO [facility] Final Result documented in this encounter Visit Diagnoses Not on filedocumented in this encounter Care Teams Pillow Agent Relationship Specialty Start Date End Date Cruz Rodríguez MD [address] [place] [address] PCP - [place] [employer] 09/26/2111/25 Cruz Rodríguez MD [address] [place] [address] PCP - General Family Medicine 04/10/23 02/13/24 Cruz Rodríguez MD [address] [place] [address] PCP - [facility] 02/24/23 4 Eliceo Beltran DO [address] [place] [address] PCP - General Family Medicine 02/14/24 Eliceo Beltran DO [address] [facility] [address] [place] [address] PCP - Medical [place] [employer] 07/27/24 11/25/99 [place] NP [address] [place] [address] Nurse Practitioner Family Medicine 10/05/23 04/14/24 Trista Thao NP [address] [place] [address] Nurse Practitioner Pulmonary Disease 10/05/23 04/14/24 documented as of this encounter
--- OUTSIDE RECORDS SUMMARY | 2025-08-25 08:03 | XMS_ITS | Encounter Summary ---
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 Not on file documented as of this encounter Plan of Treatment Upcoming Encounters Date Type Department Care Team (Late Contact Info) Description 08/27/2025 3:20 PM EDT Routine NOMShalonda MOODY [address] [facility] [place] [address] Steph Keane, DEVYN [address] [facility] [place] [address] 09/07/2025 4:00 PM EDT Office Visit LANETTE MOODY [address] [facility] [address] Nathan Pop DO [address] [facility] [place] [address] documented as of this encounter Procedures [...] DATE OF EXAM: Jun 12 2023 2:47PM [facility] 0713 - MRI FEMALE PELVIS WO/W IVCON [...] additional findings. IMPRESSION: No deep infiltrating endometriosis. School Based Therapist: [facility] Transcribe Date/Time: Jun 12 2023 2:54P Dictated by : ASHLEY DUKE MD This examination was interpreted and the report reviewed and electronically signed by: SONIDO FLAHERTY MD on Jun 12 2023 4:51PM EST [id number]^[id number]^SI^ACN Procedure Note Radiology, Radiologist, - 06/13/2023 * * *Final Report* * * DATE OF EXAM: Jun 12 2023 2:47PM [facility] 0713 - MRI FEMALE PELVIS WO/W IVCON [...] additional findings. IMPRESSION: No deep infiltrating endometriosis. School Based Therapist: [facility] Transcribe Date/Time: Jun 12 2023 2:54P Dictated by : ASHLEY DUKE MD This examination was interpreted and the report reviewed and electronically signed by: SONIDO FLAHERTY MD on Jun 12 2023 4:51PM EST [id number]^[id number]^SI^ACN us Generic External Data Provider [facility] Final Result documented in this encounter Visit Diagnoses Not on filedocumented in this encounter Care Teams Gravedigger Relationship Specialty Start Date End Date Cruz Rodríguez MD [address] [place] [address] PCP - [place] [employer] 09/26/2111/25 Cruz Rodríguez MD [address] [place] [address] PCP - General Family Medicine 04/10/23 02/13/24 Cruz Rodríguez MD [address] [place] [address] PCP - [facility] 02/24/23 4 Eliceo Beltran DO [address] [place] [address] PCP - General Family Medicine 02/14/24 Eliceo Beltran DO [address] [place] [address] PCP - Medical [place] [employer] 07/27/24 11/25/99 [place] NP [address] [place] [address] Nurse Practitioner Family Medicine 10/05/23 04/14/24 Trista Thao NP [address] [place] [address] Nurse Practitioner Pulmonary Disease 10/05/23 04/14/24 documented as of this encounter
--- OUTSIDE RECORDS SUMMARY | 2025-08-25 08:03 | XMS_ITS | Encounter Summary ---
Author Organization [facility] Address [address] [facility] [place] [address] Care Team Providers Care Battery Recharger Name Role Phone Cruz Rodríguez MD Unavailable + 54 Cruz Rodríguez MD Primary Care Provider +54 Cruz Rodríguez MD Unavailable + 54 [address] SOUTHEAST REGIONAL SALES MANAGER Unavailable Trista Thao SOUTHEAST REGIONAL SALES MANAGER Unavailable +-[phone] Eliceo Beltran DO Primary Care Provider [phone] Eliceo Beltran DO Unavailable [phone] Encounter Details Date Type Department Care Team (Late st Contact Info) Description 05/23/2023 Abstract N[facility] [place] Podiat[facility] [address] [facility] [address] [place] [phone] Briana Robles LPN [address] [facility] [place] [address] [place] [address] Social History Tobacco Use Types Packs/Day Years [...] 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 Not [...] 3:20 PM EDT Routine LANETTE MOODY [address] [facility] [place] [address] Steph Keane, SOUTHEAST REGIONAL SALES MANAGER [address] [facility] [place] [address] 09/07/2025 4:00 PM EDT Office Visit LANETTE MOODY [address] [facility] [place] [address] Nathan Pop DO [address] [facility] [address] [place], [place] [address] documented as of this encounter Visit Diagnoses Not on filedocumented in this encounter Care Teams Battery Recharger Relationship Specialty Start Date End Date Cruz Rodríguez MD [address] [place] [address] PCP - [place] [employer] 09/26/2111/25 Cruz Rodríguez MD [address] [place] [address] PCP - General Family Medicine 04/10/23 02/13/24 Cruz Rodríguez MD [address] [place] [address] PCP - [facility] 02/24/23 4 Eliceo Beltran DO [address] [place] [address] PCP - General Family Medicine 02/14/24 Eliceo Beltran DO [address] [place] [address] PCP - Medical [place] [employer] 07/27/24 11/25/99 [place] NP [address] [place] [address] Nurse Practitioner Family Medicine 10/05/23 04/14/24 Trista Thao, SOUTHEAST REGIONAL SALES MANAGER [address] [place] [address] Nurse Practitioner Pulmonary Disease 10/05/23 04/14/24 documented as of this encounter
--- OUTSIDE RECORDS SUMMARY | 2025-08-25 08:03 | XMS_ITS | Encounter Summary ---
Author Organization [employer] [facility] Address [id number] [address] [place] [address] Care Team Providers Care Technical Marketing Consultant Name Role Phone Cruz Rodríguez MD Primary Care Provider [phone] Encounter Details Date Type Department Care Team (Latest Contact Info) Description 08/22/2025 Travel Social History Tobacco Use Types Packs/Day [...] Upcoming Encounters Date Type Department Care Team ( st Contact Info) Description 09/10/2025 9:45 AM EDT Appointment [facility] [place] [address] [facility] [address] [place] [address] 09/10/2025 11:00 AM EDT Telemedicine [facility] [place] [address] [facility] 4 [place] [address] Quynh Clements MD [address] [facility], [address] [place] [address] documented as of this encounter Visit Diagnoses Not on filedocumented in this encounter Care Teams Technical Marketing Consultant Relationship Specialty Start Date End Date Cruz Rodríguez MD [address] [place] [address] PCP - General Family Medicine 12/02/18 documented as of this encounter
--- OUTSIDE RECORDS SUMMARY | 2025-08-25 08:03 | XMS_ITS | Encounter Summary ---
Author Organization [facility] Address [address] [facility] [place] [address] Care Team Providers Care Manufacturing Quality Manager Name Role Phone Cruz Rodríguez MD Unavailable + 54 Cruz Rodríguez MD Primary Care Provider [phone] Cruz Rodríguez MD Unavailable + 54 [address] [place] CHILDCARE CENTER ADMINISTRATOR Unavailable Trista Thao CHILDCARE CENTER ADMINISTRATOR Unavailable +[phone] Eliceo Beltran DO Primary Care Provider [phone] Eliceo Beltran DO Unavailable [phone] Encounter Details Date Type Department Care Team (Late st Contact Info) Description 04/23/2023 Abstract LANETTE [place] Family Medicine [address] [place] [address] Cruz Rodríguez MD [address] [place] [address] Social History Tobacco Use Types Packs/Day Years [...] 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 on 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 Not [...] 3:20 PM EDT Routine LANETTE MOODY [address] [facility] [place] [address] Steph Keane, DEVYN [address] [facility] [place] [address] 09/07/2025 4:00 PM EDT Office Visit LANETTE MOODY [address] [facility] [address] [place], [facility] Nathan Pop DO [address] [facility] [address] [place], [place] [address] documented as of this encounter Visit Diagnoses Not on filedocumented in this encounter Care Teams Manufacturing Quality Manager Relationship Specialty Start Date End Date Cruz Rodríguez MD [address] [place] [address] PCP - [place] [employer] 09/26/2111/25 Cruz Rodríguez MD [address] [place] [address] PCP - General Family Medicine 04/10/23 02/13/24 Cruz Rodríguez MD [address] [place] [address] PCP - [facility] 02/24/23 4 Eliceo Beltran DO [address] [place] [address] PCP - General Family Medicine 02/14/24 Eliceo Beltran DO [address] [place] [address] PCP - Medical [place] [employer] 07/27/24 11/25/99 Zenobia a[place] NP [address] [place] [address] Nurse Practitioner Family Medicine 10/05/23 04/14/24 Trista Thao CHILDCARE CENTER ADMINISTRATOR [address] [place] [address] Nurse Practitioner Pulmonary Disease 10/05/23 04/14/24 documented as of this encounter
--- OUTSIDE RECORDS SUMMARY | 2025-08-25 08:03 | XMS_ITS | Encounter Summary ---
Author Organization [facility] Address [address] [facility] [place] [address] Care Team Providers Care Joinery Setter Out Name Role Phone Cruz Rodríguez MD Unavailable + 54 Cruz Rodríguez MD Primary Care Provider +54 Cruz Rodríguez MD Unavailable + 54 [place] SYSTEMS SUPPORT OFFICER Unavailable Trista Thao SYSTEMS SUPPORT OFFICER Unavailable +-[phone] Eliceo Beltran DO Primary Care Provider [phone] Eliceo Beltran DO Unavailable [phone] Encounter Details Date Type Department Care Team (Late st Contact Info) Description 05/01/2023 Abstract [facility] [place] Podiat[facility] [address] [facility] [address] [place] [address] Briana Robles LPN [address] [facility] [place] [address] [place] [address] Social History Tobacco Use Types Packs/Day Years [...] 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 Not [...] 3:20 PM EDT Routine LANETTE MOODY [address] [facility] [place] [address] Steph Keane, SYSTEMS SUPPORT OFFICER [address] [facility] [place] [address] 09/07/2025 4:00 PM EDT Office Visit LANETTE MOODY [address] [facility] [place] [address] Nathan Pop DO [address] [facility] [address] [place], [place] [address] documented as of this encounter Visit Diagnoses Not on filedocumented in this encounter Care Teams Joinery Setter Out Relationship Specialty Start Date End Date Cruz Rodríguez MD [address] [place] [address] PCP - [place] [employer] 09/26/2111/25 Cruz Rodríguez MD [address] [place] [address] PCP - General Family Medicine 04/10/23 02/13/24 Cruz Rodríguez MD [address] [place] [address] PCP - [facility] 02/24/23 4 Eliceo Beltran DO [address] [place] [address] PCP - General Family Medicine 02/14/24 Eliceo Beltran DO [address] [place] [address] PCP - Medical [place] [employer] 07/27/24 11/25/99 [place] NP [address] [place] [address] Nurse Practitioner Family Medicine 10/05/23 04/14/24 Trista Thao SYSTEMS SUPPORT OFFICER [address] [place] [address] Nurse Practitioner Pulmonary Disease 10/05/23 04/14/24 documented as of this encounter
--- OUTSIDE RECORDS SUMMARY | 2025-08-25 08:03 | XMS_ITS | Encounter Summary ---
Author Organization [facility] Address [address] [facility] [place] [address] Care Team Providers Care Web Development Director Name Role Phone Cruz Rodríguez MD Unavailable + 54 Cruz Rodríguez MD Primary Care Provider +54 Cruz Rodríguez MD Unavailable + 54 [place] JAMMER OPERATOR Unavailable Trista Thao JAMMER OPERATOR Unavailable +-[phone] Eliceo Beltran DO Primary Care Provider +[phone] Eliceo Beltran DO Unavailable [phone] Encounter Details Date Type Department Care Team (Late st Contact Info) Description 07/24/2023 Abstract [facility] [place] Podiat[facility] [address] [facility] [address] [place] [address] Kellee Starkey LPN Social History Tobacco Use [...] 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 Not on file documented as of this encounter Plan of Treatment Upcoming Encounters Date Type Department Care Team (Late st Contact Info) Description 08/27/2025 3:20 PM EDT Routine NOMShalonda MOODY [address] [facility] [place] [phone] Steph Keane, JAMMER OPERATOR [address] [facility] [place] [address] 09/07/2025 4:00 PM EDT Office Visit LANETTE MOODY [address] [facility] [place] [address] Nathan Pop DO [address] [facility] [address] [place], [place] [address] documented as of this encounter Visit Diagnoses Not on filedocumented in this encounter Care Teams Web Development Director Relationship Specialty Start Date End Date Cruz Rodríguez MD [address] [place] [address] PCP - [facility] 09/26/2111/25 Cruz Rodríguez MD [address] [place] [address] PCP - General Family Medicine 04/10/23 02/13/24 Cruz Rodríguez MD [address] [place] [address] PCP - [facility] 02/24/23 4 Eliceo Beltran DO [address] [place] [address] PCP - General Family Medicine 02/14/24 Eliceo Beltran DO [address] [place] [address] PCP - Medical [place] [employer] 07/27/24 11/25/99 [place] NP [address] [place] [address] Nurse Practitioner Family Medicine 10/05/23 04/14/24 Trista Thao JAMMER OPERATOR [address] [place] [address] Nurse Practitioner Pulmonary Disease 10/05/23 04/14/24 documented as of this encounter
[2025-08-25 08:12] VITALS: BP 144/87; PULSE 95
[2025-08-25 08:33] LABS: Glucose Urine UA NEGATIVE (NEGATIVE)
[2025-08-25 08:47] LABS: Cast Seen? NONE SEEN #/LPF (NONE SEEN); Crystals Seen? None Seen #/HPF (None Seen); Urine Culture Indicated YES-LC
[2025-08-25 08:56] VITALS: BP 139/98; PULSE 117
[2025-08-25] MEDS: LABETALOL HCL 100 MG TABLET 200 MG PO (09:06)
[2025-08-25 09:11] VITALS: BP 147/79; PULSE 101
[2025-08-25 09:17] LABS: Hematocrit 33.0 % (36.0-48.0); Hemoglobin 11.0 g/dL (12.0-16.0); Immature Granulocytes Abs Auto 0.42 10^3/uL (0.00-0.03); Immature Granulocytes Pct Auto 3.7 % (0.0-0.5); Lymphocytes Absolute Auto 2.3 10^3/uL (1.2-3.8); Mean Corpuscular HGB Conc 33.3 g/dL (29.9-35.2); Mean Corpuscular Hemoglobin 29.3 pg (26.7-34.0); Mean Corpuscular Volume 87.8 fL (81.0-99.0); Platelet Count 299 10^3/uL (150-450); Red Blood Count 3.76 10^6/uL (4.20-5.40); White Blood Count 11.2 10^3/uL (4.0-11.0)
[2025-08-25 09:26] VITALS: BP 132/79; PULSE 100
[2025-08-25 09:31] LABS: Total Protein Urine Random <6.0 mg/dL (<=11.9)
[2025-08-25 09:35] LABS: INR 0.94; Partial Thromboplastin Time 25.1 sec (22.3-36.2); Prothrombin Time 10.0 sec (9.0-11.6)
[2025-08-25 09:37] LABS: Alanine Aminotransferase 34 U/L (14-59); Aspartate Amino Transferase 23 U/L (15-37); Blood Urea Nitrogen 7.0 mg/dL (7.0-18.0); Estimated GFR (African America >60 (>=60 mL/min/1.73m^2); Estimated GFR (Non-African Ame >60 (>=60 mL/min/1.73m^2); Uric Acid 4.3 mg/dL (2.6-6.0)
[2025-08-25 09:38] LABS: Fibrinogen 394 mg/dL (200-400)
[2025-08-25 09:41] VITALS: BP 122/75; PULSE 97
== END 2025-08-25 09:50 | disposition home or self-care (01) ==
PROVIDERS: Admitting Provider Obstetrics & Gynecology; Family Provider Family Medicine; PCP Family Medicine; Visit Provider Obstetrics & Gynecology
DX: O99.891 Other specified diseases and conditions complicating pregnancy (principal); R10.2 Pelvic and perineal pain; Z3A.26 26 weeks gestation of pregnancy
CPT/HCPCS: 36415; 59025; 81001; 82565; 82570; 84156; 84450; 84460; 84520; 84550; 85025; 85384; 85610; 85730; 87086; G0378; G0379

== ENCOUNTER 2025-08-26 15:20 | Outpatient (RCR) | payer OTHER, SELFPAY ==
[2025-08-26 15:25] VITALS: BP 122/74; PULSE 97; TEMP 36.6; O2SAT 98
[2025-08-26] MEDS: FERRIC CARBOXYMALTOSE 750 MG in 0.9 % SODIUM CHLORIDE 250 ML 795 MG IV (15:34)
== END 2025-09-25 23:59 | disposition home or self-care (01) ==
LOC: INF 15:20
PROVIDERS: Family Provider Family Medicine; PCP Family Medicine; Visit Provider Obstetrics & Gynecology
DX: D50.9 Iron deficiency anemia, unspecified (principal)
CPT/HCPCS: 96365; J1439

== ENCOUNTER 2025-08-27 16:37 | Outpatient (OUT) | payer OTHER, SELFPAY ==
--- OUTSIDE RECORDS SUMMARY | 2025-08-24 13:30 | XMS_ITS | Encounter Summary ---
Author Organization [facility] tem Address [facility]-[id number] [address] [place] [address] Care Team Providers Care Sole Tier Name Role Phone Cruz Rodríguez MD Primary Care Provider [phone] Reason for Visit * Reason Comments Gestational Diabetes * Consultation (Routine) - Pending Review Specialty Diagnoses / Procedures Referred By Michaela t Referred To Contact Maternal and Medicine Diagnoses Gestational diabetes mellitus (GDM) in second trimester, gestational diabetes method of control unspecified Nathan Pop, DO [address] [place] [address] [place] [address] Phone: tel: fax: Maternal- Medicine at [facility] [address] [place] [address] Phone: tel: fax: Referral ID Status Reason Start Date Expiration Date Visits Requested Visits Authorized [id number] Pending Review Specialty Services Required 08/20/2025 08/20/2026 1 1 Encounter Details Date Type Department Care Team (Late st Contact Info) Description 08/24/2025 1:30 PM EDT Support Visit Maternal- Medicine at [facility] [address] [place] [address] Teena Sarmiento RN [address] [address] Kerline Steiner, RAYNA [address] [place] [address] Gestational diabetes mellitus (GDM) in second trimester, gestational diabetes method of control unspecified Social History Tobacco Use Types Packs/Day Years Used Date Smoking Tobacco: Never Smokeless Tobacco: Never Alcohol Use Standard Drinks/Week Comments No 0 (1 standard drink = 0.6 oz pur e alcohol) AUDIT-C Answer Date Recorded Frequency of Alcohol Consumption Never 12/10/2018 Average Number of Drinks Not on file 019 Frequency of Binge Drinking Not on file 11/26 Childcare Answer Date Recorded Childcare Unknown 05/08/2019 Employment Answer Date Recorded Employment Unknown 05/08/2019 Purpose - Life Answer Date Recorded Purpose and direction in life Unknown Estimated Date of Delivery Comme nts Yes 11/28/2025 Based on last me nstrual period of 02/21/2025 (Exact Date) Sex and Gender Information Value Date Recorded Sex Assigned at Not on file Legal Sex Female 2:55 PM EST Gender Identity Not on file Sexual Orientation Not on file documented as of this encounter Last Filed Vital Signs Vital Sign Reading Time Taken Comments Blood Pressure - - Pulse - - Temperature - - Respiratory Rate - - Oxygen Saturation - - Inhaled Oxygen Concentration - - Weight 73 kg (161 lb) 08/24/2025 3:55 PM EDT Height - - Body Mass Index 29.45 12/10/2018 11:10 AM EST documented in this encounter Miscellaneous Notes * Group Note - Kerline Steiner RD - 08/24/2025 1:30 PM EDT Patient: Driss Galvanaishwarya Date: 08/24/2025 Vitals: 08/24/25 1555 Weight: 73 kg (161 lb) Patient present for diabetes education group class per doctor order secondary to diagnosis of GDM and/or abnormal glucose tolerance. Food recall suggests patient typically consumes a diet of mainly convenience choices. Pt has gained 21 # to date. Weight gain goal is 15-25#. Pt appears willing to make changes. Nutrition diagnosis: inconsistent carbohydrate intake related to lack of nutrition knowledge as evidenced by food log. Instructed pt in 1900 kcal meal plan of 3 meals and 3 snacks, carbohydrate counting, label reading, dining out, and portion control. Energy content of meal plan to be adjusted as needed based on patient's blood glucose control and weight gain/loss. Discussed foods rich in iron and calcium. Encouraged pt to limit dining out and measure carbohydrates for 2 days. To send 2 day food log and blood glucoses. Please refer to health habits for other goals. Face to face time was 80 minutes. documented in this encounter Plan of Treatment Upcoming Encounters Date Type Department Care Team (Late st Contact Info) Description 09/10/2025 9:45 AM EDT Appointment Maternal Medicine [place] [address] [address] 09/10/2025 11:00 AM EDT Telemedicine Maternal Medicine [place] [address] [address] Quynh Clements MD [address] [address] documented as of this encounter Visit Diagnoses Diagnosis Gestational diabetes mellitus (GDM) in second trimester, gestational diabetes method of control unspecified documented in this encounter Care Teams Sole Tier Relationship Specialty Start Date End Date Cruz Rodríguez MD [address] [place] [address] PCP - General Family Medicine 12/02/18 documented as of this encounter
--- OUTSIDE RECORDS SUMMARY | 2025-08-27 15:20 | XMS_ITS | Encounter Summary ---
Author Organization [facility] Address [address] [place] [address] Care Team Providers Care Hvac Specialist Name Role Phone Eliceo Beltran Primary Care Provider [phone] CharlottegeovaniEliceo kauffman Unavailable [phone] Reason for Visit * Reason Comments Routine Visit Encounter Details Date Type Department Care Team ([facility] Contact Info) Description 08/27/2025 3:20 PM EDT Routine [facility] [address] [place] [address] Steph Keane, DEVYN [address] [place] [address] 26 weeks gestation of ([facility]); Second trimester ([facility]); induced hypertension, antepartum ([facility]); Gestational diabetes mellitus (GDM) in second trimester, gestational diabetes method of control unspecified ([facility]) Social History Tobacco Use Types Packs/Day Years [...] week 12/29/2024 How often do you attend [facility] or restorationism services? 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 [phone] Steph Keane, DEVYN [address] [place] [address] 09/07/2025 4:00 PM EDT Office Visit LANETTE MOODY [address] [phone] Nathan Pop DO [address] [place], [place] [phone] Scheduled Orders Name Type Priority Associated Diagnoses Orde r Schedule Creatinine Lab Routine induced hypertension, antepartum ([facility]) Expected: 08/27/2025 (Approximate), Expires: 08/27/2026 Protein, urine, 24 hour Lab Routine induced hypertension, antepartum ([facility]) Expected: 08/27/2025 (Approximate), Expires: 08/27/2026 Pt and ptt Lab Routine induced hypertension, antepartum ([facility]) Expected: 08/27/2025, Expires: 08/27/2026 CBC and differential Lab Routine induced hypertension, antepartum ([facility]) Expected: 08/27/2025 (Approximate), Expires: 08/27/2026 Uric acid Lab Routine induced hypertension, antepartum ([facility]) Expected: 08/27/2025 (Approximate), Expires: 08/27/2026 Lactate dehydrogenase Lab Routine induced hypertension, antepartum ([facility]) Expected: 08/27/2025, Expires: 08/27/2026 ALT Lab Routine induced hypertension, antepartum ([facility]) Expected: 08/27/2025 (Approximate), Expires: 08/27/2026 AST Lab Routine induced hypertension, antepartum ([facility]) Expected: 08/27/2025 (Approximate), Expires: 08/27/2026 BUN Lab Routine induced hypertension, antepartum ([facility]) Expected: 08/27/2025, Expires: 08/27/2026 US biophysical profile w non stress test Imaging Routine induced hypertension, antepartum ([facility]) Gestational diabetes mellitus (GDM) in second trimester, gestational diabetes method of control unspecified ([facility]) Expected: 08/27/2025 (Approximate), Expires: 02/25/2026 documented as of this encounter Procedures Procedure Name Priority Date/Time Associated Diagnosis Comments POCT URINALYSIS DIPSTICK Routine 08/27/2025 3:53 PM EDT 26 weeks gestation of ([facility]) documented in this encounter Results * POCT urinalysis dipstick manually resulted (08/27/2025 3:53 PM EDT) Color, UA Yellow Clarity, UA Clear Glucose, UA Negative Negative - 1999(110) ++++ mg/dL Bilirubin, UA Negative Negative - 4(70) +++ mg/dL Ketones, UA Negative Negative - 160(16) ++++ mg/dL Spec Grav, UA 1.015 1 - 1.03 Blood, UA Negative Negative - 50 Teodoro/mcL pH, UA 6.0 5 - 9 Protein, UA Negative Negative - 2000(20) ++++ mg/dL Urobilinogen, UA 2.0 0.2 - 12 mg/dL Leukocytes, UA Negative Negative - 500+++ Robinson/mcL Nitrite, UA Negative Negative - Positive Urine 08/27/2025 3:53 PM EDT Steph Keane WEATHERIZATION TECHNICIAN POINT OF CARE TEST ENTER/EDIT ORDERABLES Final Result documented in this encounter Visit Diagnoses Diagnosis 26 weeks gestation of ([facility]) Second trimester ([facility]) state, incidental induced hypertension, antepartum ([facility]) Transient hypertension of , antepartum Gestational diabetes mellitus (GDM) in second trimester, gestational diabetes method of control unspecified ([facility]) documented in this encounter Care Teams Hvac Specialist Relationship Specialty Start Date End Date Eliceo Beltran DO [address] [place] [address] PCP - General Family Medicine 02/14/24 Eliceo Beltran DO [address] [place] [address] PCP - Medical [place] [employer] 07/27/24 11/25/99 documented as of this encounter
--- OUTSIDE RECORDS SUMMARY | 2025-08-27 16:41 | XMS_ITS | Encounter Summary ---
Author Organization [facility] Address [address] [facility] [place] [address] Care Team Providers Care Stock Handler Name Role Phone Eliceo Beltran DO Primary Care Provider [phone] Eliceo Beltran DO Unavailable [phone] Encounter Details Date Type Department Care Team (Late st Contact Info) Description 08/17/2025 Abstract [facility] [address] [facility] [address] [place] [phone] Eliceo Beltran DO [address] [facility] [address] [place] [address] Social History Tobacco Use Types Packs/Day Years [...] often do you attend chur ch or latter-day services? Patient declined 12/29/2024 Do you belong to any clubs o r organizations such as jain groups, unions, fraJamdat Mobile or athletic groups, or school groups? No [...] Recorded Patient Health Questionnaire-2 Score 0 07/30/2025 [facility] of Occupat ional Health - Occupational [...] place to sleep or slept in a care home (including now)? No 09/19/2023 Housing Stability Vital Sign Answer Kang e Recorded In the last 12 months, was t here a time when you were not able to pay the mortgage or rent on time? No 12/29/2024 Number of Times Moved in the Last Year Not on fi le 12/29/2024 At any time in the past 12 m [facility], were you homeless or living in a care home (including now)? 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 Not on file Not on file documented as of this encounter Plan of Treatment Upcoming Encounters Date Type Department Care Team (Late st Contact Info) Description 09/03/2025 3:50 PM EDT Routine NOMShalonda MOODY [address] [place] [phone] Steph Keane, DEVYN [address] [place] [phone] 09/07/2025 4:00 PM EDT Office Visit LANETTE MOODY [address] [place] [phone] Nathan Pop DO [address] [place] [address] documented as of this encounter Visit Diagnoses Not on filedocumented in this encounter Care Teams Stock Handler Relationship Specialty Start Date End Date Eliceo Beltran DO [address] [facility] [address] [place] [address] PCP - General Family Medicine 02/14/24 Eliceo Beltran DO [address] [place] [address] PCP - Medical [place] [employer] 07/27/24 11/25/99 documented as of this encounter
--- OUTSIDE RECORDS SUMMARY | 2025-08-27 16:41 | XMS_ITS | Encounter Summary ---
Author Organization [facility] Address [address] [place] [address] Care Team Providers Care Principal Consulting Engineer Name Role Phone NirajEliceo kauffman Primary Care Provider [phone] Charlottecarol Eliceo Hurtado DO Unavailable [phone] Encounter Details Date Type Department Care Team (Late st Contact Info) Description 03/16/2025 Abstract [facility] [address] [place] [phone] Nathan Pop DO [address] [place], [facility] Social History Tobacco Use Types Packs/Day Years [...] How often do you attend chur or yazidi services? Patient declined 12/29/2024 Do you belong to any clubs o r organizations such as moravian groups, unions, fraBaxano or athletic groups, or school groups? No [...] Recorded Patient Health Questionnaire-2 Score 0 12/30/2024 [facility] of Occupat ional Health - [...] place to sleep or slept in a long term (including now)? No 09/19/2023 Housing Stability Vital Sign Answer Kang e Recorded In the last 12 months, was t here a time when you were not able to pay the mortgage or rent on time? No 12/29/2024 Number of Times Moved in the Last Year Not on fi le 12/29/2024 At any time in the past 12 m [facility], were you homeless or living in a long term (including now)? 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 on file Not on file documented as of this encounter Plan of Treatment Upcoming Encounters Date Type Department Care Team (Late st Contact Info) Description 09/03/2025 3:50 PM EDT Routine [facility] Patti MOODY [address] [place] [phone] Steph Keane, RIDING INSTRUCTOR [address] [place] [phone] 09/07/2025 4:00 PM EDT Office Visit [facility]S Patti YOUNGN [address] [place] [address] Nathan Pop DO [address] [place], [place] [id number] documented as of this encounter Visit Diagnoses Not on filedocumented in this encounter Care Teams Principal Consulting Engineer Relationship Specialty Start Date End Date Eliceo Beltran DO [address] [place] [address] PCP - General Family Medicine 02/14/24 Eliceo Beltran DO [address] [place] [address] PCP - Medical [employer] 07/27/24 11/25/99 documented as of this encounter
--- OUTSIDE RECORDS SUMMARY | 2025-08-27 16:41 | XMS_ITS | Encounter Summary ---
Author Organization [facility] Address [address] [facility] [place] [address] Care Team Providers Care Senior Economist Name Role Phone Eliceo Beltran DO Primary Care Provider [phone] Eliceo Beltran DO Unavailable [phone] Encounter Details Date Type Department Care Team (Late st Contact Info) Description 08/17/2025 Abstract [facility] [place] [facility] [address] [facility] [address] [place] [phone] Eliceo Beltran DO [address] [facility] [address] [place] [address] Social History Tobacco Use Types Packs/Day Years [...] often do you attend chur ch or hinduism services? Patient declined 12/29/2024 Do you belong to any clubs o r organizations such as taoism groups, unions, fraTop Prospect or athletic groups, or school groups? 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 [place] [address] 09/07/2025 4:00 PM EDT Office Visit [place] [address] [facility] [phone] Nathan Pop DO [address] [facility] [place] [address] documented as of this encounter Visit Diagnoses Not on filedocumented in this encounter Care Teams Senior Economist Relationship Specialty Start Date End Date Eliceo Beltran DO [address] [facility] 230 [place] [address] PCP - General Family Medicine 02/14/24 Eliceo Beltran DO [address] [place] [address] PCP - Medical [place] [employer] 07/27/24 11/25/99 documented as of this encounter
--- OUTSIDE RECORDS SUMMARY | 2025-08-27 16:41 | XMS_ITS | Encounter Summary ---
Author Organization [facility] Address [address] [facility] [address] Care Team Providers Care Director Title Name Role Phone Cruz Rodríguez MD Unavailable + [phone] Cruz Rodríguez MD Primary Care Provider [phone] Cruz Rodríguez MD Unavailable + [phone] [place] QUALITY ASSURANCE SUPERVISOR BODY Unavailable Trista Thao QUALITY ASSURANCE SUPERVISOR BODY Unavailable [phone] Eliceo Beltran DO Primary Care Provider [phone] Eliceo Beltran DO Unavailable [phone] Encounter Details Date Type Department Care Team (Late st Contact Info) Description 01/15/2024 Clinisync Result Encounter [facility] External Department Unsolicited Jony Pop DO [address] [facility] [place] [address] Social History Tobacco Use Types Packs/Day Years [...] you attend [facility] or lutheran services? Patient declined 09/19/2023 Do you belong to any clubs o r organizations such as christian groups, unions, fraternal or athletic groups, or [...] Recorded Patient Health Questionnaire-2 Score 0 10/23/2023 [facility] of Occupat ional Health - Occupational Stress [...] place to sleep or slept in a residential (including now)? 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 on file Not on file documented as of this encounter Plan of Treatment Upcoming Encounters Date Type Department Care Team (Late st Contact Info) Description 09/03/2025 3:50 PM EDT Routine [place] MOODY [address] [place] [address] Steph Keane, DEVYN [address] [facility] [place] [address] 09/07/2025 4:00 PM EDT Office Visit [place] MOODY [address] [place] [address] Jony Pop DO [address] [facility] [place] [address] [phone] (work) documented as of this encounter Procedures Procedure Name Priority Date/Time Associated Diagnosis Comments US PELVIS W/ TRANSVAGINAL 01/15/2024 11:42 AM EST documented in this encounter Results * US PELVIS W/ TRANSVAGINAL (01/15/2024 11:42 AM EST) Anatomical Region Laterality Modality Other 01/15/2024 11:4 2 AM EST Narrative 01/15/2024 11:44 AM EST [place] [id number] Ultrasound Report Signed Patient: DRISS COPE MR#: [id number] : 1995 Acct:[id number] Age/Sex: 28 / F ADM Date: 01/15/24 Loc: [facility] Attending Dr: Jony Pop D.O. Ordering Physician: Jony Pop D.O. Date of Service: 01/15/24 Procedure(s): US pelvis w/ transvaginal Accession Number(s): [id number] cc: Jony Pop D.O.; Physician,Non-Staff Katherine [address] [address] Patient Name: DRISS COPE MRN: [id number] date: 1995 Sex: F Assigned Patient Location: [facility] Current Patient Location: [facility] Accession/Order Number: [id number] Exam Date: 01/15/2024 07:57 Report Date: 01/15/2024 [...] Signed By: 01/15/24 1144 DD/ 1142 TD/TT: Community Organization Worker: Procedure Note Radiology, Radiologist, MD - 01/15/2024 [place] [address] Ultrasound Report Signed Patient: DRISS COPE MMR#: [id number] : 1995Acct:[id number] Age/Sex: 28 / FADM Date: 01/15/24 Loc: [facility] Attending Dr: Jony Pop D.O. Ordering Physician: Jony Pop D.O. Date of Service: 01/15/24 Procedure(s): US pelvis w/ transvaginal Accession Number(s): [id number] cc: Jony Pop D.O.; Physician,Non-Staff M.Mark Anthony [place] [id number] Patient Name: DRISS COPE MRN: [id number] date: 1995 Sex: F Assigned Patient Location: [facility] Current Patient Location: [facility] Accession/Order Number: [id number] Exam Date: 01/15/2024 07:57 Report Date: 01/15/2024 [...] M.D. Signed By:01/15/24 1144 DD/ 1142 TD/TT: Community Organization Worker: us Jony Kiesha DO [facility] Final Result documented in this encounter Visit Diagnoses Not on filedocumented in this encounter Care Teams Director Title Relationship Specialty Start Date End Date Cruz Rodríguez MD [address] [place] [address] [facility] 09/26/2111/25 Cruz Rodríguez MD [address] [place] [address] PCP - General Family Medicine 04/10/23 02/13/24 Cruz Rodríguez MD [address] [place] [address] PCP - [facility] 02/24/23 4 Eliceo Beltran DO [address] [place] [address] PCP - General Family Medicine 02/14/24 Eliceo Beltran DO [address] [place] [address] PCP - Medical [place] [employer] 07/27/24 11/25/99 Zenobia [place] NP [address] [place] [address] Nurse Practitioner Family Medicine 10/05/23 04/14/24 Trista Thao NP [address] [place] [address] Nurse Practitioner Pulmonary Disease 10/05/23 04/14/24 documented as of this encounter
--- OUTSIDE RECORDS SUMMARY | 2025-08-27 16:41 | XMS_ITS | Encounter Summary ---
Author Organization [facility] Address [address] [facility] [place] [address] Care Team Providers Care Electronic Engineering Technician Name Role Phone Eliceo Beltran DO Primary Care Provider [phone] Eliceo Beltran DO Unavailable [phone] Encounter Details Date Type Department Care Team (Late st Contact Info) Description 08/12/2025 Abstract [facility] [place] [facility] [address] [facility] [address] [place] [phone] Eliceo Beltran DO [address] [facility] [address] [place] [address] Social History Tobacco Use Types Packs/Day Years [...] often do you attend chur ch or scientologist services? Patient declined 12/29/2024 Do you belong to any clubs o r organizations such as lutheran groups, unions, fraiStreamPlanet or athletic groups, or school groups? 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 on file Not on file documented as of this encounter Plan of Treatment Upcoming Encounters Date Type Department Care Team (Late st Contact Info) Description 09/03/2025 3:50 PM EDT Routine NOMShalonda MOODY [address] [facility] [phone] Steph Keane, DEVYN [address] [facility] [place] [phone] 09/07/2025 4:00 PM EDT Office Visit LANETTE MOODY [address] [facility] [phone] Nathan Pop DO [address] [facility] [place] [address] documented as of this encounter Visit Diagnoses Not on filedocumented in this encounter Care Teams Electronic Engineering Technician Relationship Specialty Start Date End Date Eliceo Beltran DO [address] [facility] 230 [place] [address] PCP - General Family Medicine 02/14/24 Eliceo Beltran DO [address] [place] [address] PCP - Medical [place] [employer] 07/27/24 11/25/99 documented as of this encounter
--- OUTSIDE RECORDS SUMMARY | 2025-08-27 16:41 | XMS_ITS | Encounter Summary ---
Author Organization [facility] Address [address] [place] [address] Care Team Providers Care Assembly Department Supervisor Name Role Phone NirajEliceo kauffman Primary Care Provider [phone] Charlottecarol Eliceo Hurtado DO Unavailable [phone] Encounter Details Date Type Department Care Team (Late st Contact Info) Description 08/20/2025 Abstract [facility] [place] [facility] [address] [facility] [place] [phone] Nathan Pop DO [address] [facility] [address] [place], [facility] Social History Tobacco Use Types Packs/Day [...] any clubs o r organizations such as worship groups, unions, fraKuliza or athletic groups, or school groups? No [...] Recorded Patient Health Questionnaire-2 Score 0 07/30/2025 [facility] - Occupational Stress Questionnaire [...] in a fpc (including now)? No 09/19/2023 Housing Stability Vital [...] were you homeless or living in a fpc (including now)? 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 Not on file Not on file documented as of this encounter Plan of Treatment Upcoming Encounters Date Type Department Care Team (Late st Contact Info) Description 09/03/2025 3:50 PM EDT Routine NOMShalonda MOODY [address] [facility] [place] [phone] Steph Keane, DEVYN [address] [facility] [place] [address] 09/07/2025 4:00 PM EDT Office Visit LANET[place] MOODY [address] [facility] [place] [phone] Nathan Pop DO [address] [facility] [place] [address] documented as of this encounter Visit Diagnoses Not on filedocumented in this encounter Care Teams Assembly Department Supervisor Relationship Specialty Start Date End Date Eliceo Beltran DO [address] [place] [address] PCP - General Family Medicine 02/14/24 Eliceo Beltran DO [address] [place] [address] PCP - Medical [place] [employer] 07/27/24 11/25/99 documented as of this encounter
--- OUTSIDE RECORDS SUMMARY | 2025-08-27 16:41 | XMS_ITS | Encounter Summary ---
Author Organization [facility] Address [address] [place] [address] Care Team Providers Care Drawer Waxer Name Role Phone NirajEliceo kauffman Bryant DAY Primary Care Provider [phone] Eliceo Beltran DO Unavailable [phone] Encounter Details Date Type Department Care Team (Late st Contact Info) Description 08/17/2025 Telephone [facility] [place] IYERGYRonen [address] [place] [address] Nathan Pop DO [address] [place], [facility] Social History Tobacco Use Types Packs/Day [...] How often do you attend chur or christian services? Patient declined 12/29/2024 Do you belong to any clubs o r organizations such as adventism groups, unions, fraUnique Home Designs or athletic groups, or school groups? 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 PVU documented in this encounter Plan of Treatment Upcoming Encounters Date Type Department Care Team (Late st Contact Info) Description 09/03/2025 3:50 PM EDT Routine LAN[place] MOODY [address] [place] [address] Steph Keane, DEVYN [address] [place] [address] 09/07/2025 4:00 PM EDT Office Visit LANETTE MOODY [address] [place] [address] Nathan Pop DO [address] [place] [address] documented as of this encounter Visit Diagnoses Not on filedocumented in this encounter Care Teams Drawer Waxer Relationship Specialty Start Date End Date Eliceo Beltran DO [address] [facility] [address] [place] [address] PCP - General Family Medicine 02/14/24 Eliceo Beltran DO [address] [facility] [address] [place] [address] PCP - Medical [place] [employer] 07/27/24 11/25/99 documented as of this encounter
--- OUTSIDE RECORDS SUMMARY | 2025-08-27 16:41 | XMS_ITS | Encounter Summary ---
Author Organization [facility] tem Address [id number] [address] [place] [address] Care Team Providers Care Histotechnologist Name Role Phone Cruz Rodríguez MD Primary Care Provider [phone] Encounter Details Date Type Department Care Team (Late st Contact Info) Description 08/18/2025 Abstract Maternal- Medicine at [facility] [address] [place] [address] Quynh Clements MD [address] [address] Social History Tobacco Use Types Packs/Day Years [...] 09/10/2025 9:45 AM EDT Appointment [facility] [place] [address] [phone] 09/10/2025 11:00 AM EDT Telemedicine Maternal Medicine [place] [address] [address] Quynh Clements MD [address] [facility], [address] [place] [address] documented as of this encounter Procedures Procedure [...] ORDERABLES Final Re sult Performing Organization Address [facility] Co de Phone Number MANUALLY TRANSCRIBED RESULTS * CBC without diff (05/04/2025) Hemoglobin 13.2 MANUALLY TRANSCRIBED RESULTS Hematocrit 39.8 MANUALLY TRANSCRIBED RESULTS Rbc Mcv (Fl) By Automated Count 84.7 MANUALLY TRANSCRIBED RESULTS Platelets 390 MANUALLY TRANSCRIBED RESULTS Blood Venous blood / Unknown us Not In System Ref Prov LAB BLOOD ORDERABLES Jayla l Result Performing Organization Address [facility] de Phone Number MANUALLY TRANSCRIBED RESULTS * Type and screen (05/04/2025) Abo/Rh(D) O Positive MANUALLY TRANSCRIBED RESULTS Antibody Screen negative MANUALLY TRANSCRIBED RESULTS Blood Venous blood / Unknown us Not In System Ref Prov BLOOD BANK TEST ORDERABLE S Final Result Performing Organization Address [facility] de Phone Number MANUALLY TRANSCRIBED RESULTS * Hemoglobin A1c (05/04/2025) Hemoglobin A1C 5.3 4.0 - 6.0 % MANUALLY TRANSCRIBED RESULTS Blood Venous blood / Unknown us Nathan R Kiesha DO LAB BLOOD ORDERABLES Final Resu lt Performing Organization Address [facility] de Phone Number MANUALLY TRANSCRIBED RESULTS * Hepatitis B surface antigen (05/04/2025) Hepatitis B Surface Antigen negative MANUALLY TRANSCRIBED RESULTS Blood Venous blood / Unknown us Not In System Ref Prov LAB BLOOD ORDERABLES Jayla l Result Performing Organization Address [facility] de Phone Number MANUALLY TRANSCRIBED [...] ORDERABLES Jayla l Result Performing Organization Address City/[facility] Co de Phone Number MANUALLY TRANSCRIBED RESULTS * Rubella IGG immune status (05/04/2025) Rubella immune IgG <0.90 MANUALLY TRANSCRIBED RESULTS Blood Venous blood / Unknown us Not In System Ref Prov LAB BLOOD ORDERABLES Jayla l Result Performing Organization Address City/[facility] Co de Phone Number MANUALLY TRANSCRIBED RESULTS documented in this encounter Visit Diagnoses Not on filedocumented in this encounter Care Teams Histotechnologist Relationship Specialty Start Date End Date Cruz Rodríguez MD [address] [place] [address] PCP - General Family Medicine 12/02/18 documented as of this encounter
--- OUTSIDE RECORDS SUMMARY | 2025-08-27 16:41 | XMS_ITS | Encounter Summary ---
Author Organization [facility] tem Address [id number] [address] [place] [address] Care Team Providers Care Home Health Scheduler Name Role Phone Cruz Rodríguez MD Primary Care Provider [phone] Encounter Details Date Type Department Care Team (Late st Contact Info) Description 08/25/2020 [facility]phone [facility] Pulmonary[facility]Sleep Medicine [address] [place] [address] [phone] Christen Maxwell RN Social History Tobacco Use [...] 09/10/2025 9:45 AM EDT Appointment Maternal Medicine [place] [address] [address] 09/10/2025 11:00 AM EDT Telemedicine Maternal Medicine [place] [address] [address] Quynh Clements MD [address] [address] documented as of this encounter Visit Diagnoses Not on filedocumented in this encounter Care Teams Home Health Scheduler Relationship Specialty Start Date End Date Cruz Rodríguez MD [address] [place] [address] PCP - General Family Medicine 12/02/18 documented as of this encounter
--- OUTSIDE RECORDS SUMMARY | 2025-08-27 16:41 | XMS_ITS | Encounter Summary ---
Author Organization [facility] Address [address] [place] [address] Care Team Providers Care Manager Of Marketing Name Role Phone Eliceo Beltran DO Primary Care Provider [phone] Eliceo Beltran DO Unavailable [phone] Encounter Details Date Type Department Care Team (Late st Contact Info) Description 08/25/2025 Clinisync Result Encounter [facility] External Department Unsolicited [...] often do you attend chur ch or lutheran services? Patient declined 12/29/2024 Do you belong to any clubs o r organizations such as sikh groups, unions, fraternal or athletic groups, or [...] Recorded Patient Health Questionnaire-2 Score 0 07/30/2025 [facility] of Occupat ional [facility] - Occupational Stress Questionnaire Answer Date Recorded [...] in the past [address] 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 file Not on file documented as of this encounter Plan of Treatment Upcoming Encounters Date Type Department Care Team (Late st Contact Info) Description 09/03/2025 3:50 PM EDT Routine [facility] [place] [facility] [address] [place] [address] Steph Keane, DEVYN [address] [place] [address] 09/07/2025 4:00 PM EDT Office Visit [facility] [place] [facility] [address] [facility] [place] [phone] Nathan Pop DO [address] [facility] [address] [place], [place] [phone] documented as of this encounter Procedures Procedure Name Priority Date/Time Associated Diagnosis Comments URINE CULTURE, ROUTINE Routine 08/25/2025 8:10 AM EDT documented in this encounter Results * URINE CULTURE, ROUTINE (08/25/2025 8:10 AM EDT) URINE CULTURE, ROUTINE Urine Culture, Routine TB URINE CULTURE, ROUTINE Mixed urogenital robert TB URINE CULTURE, ROUTINE 25,000-50,000 colony forming units per mL [facility] URINE CULTURE, ROUTINE Performed at: [facility] UR[facility]ULT[facility], ROUTINE [address] [place] [id number] [facility] URINE CULTURE, ROUTINE Smoking Pipe Repairer: Cm Sandoval PhD, Phone: [phone] [facility] 08/25/2025 8:10 AM EDT 08/25/2025 8:30 AM EDT Narrative [facility] - 08/26/2025 10:07 PM EDT us Generic External Data Provider LAB BLOOD ORDERAB LES Final Result [facility] documented in this encounter Visit Diagnoses Not on filedocumented in this encounter Care Teams Manager Of Marketing Relationship Specialty Start Date End Date Eliceo Beltran DO [address] [place] [address] PCP - General Family Medicine 02/14/24 Eliceo Beltran DO [address] [place] [address] PCP - Medical [place] [employer] 07/27/24 11/25/99 documented as of this encounter
--- OUTSIDE RECORDS SUMMARY | 2025-08-27 16:41 | XMS_ITS | Encounter Summary ---
Author Organization [facility] Address [address] [facility] [place] [place] [address] Care Team Providers Care Wallpaper Printer Name Role Phone Cruz Rodríguez MD Unavailable + [phone] Cruz Rodríguez MD Primary Care Provider + [phone] Cruz Rodríguez MD Unavailable + 54 [facility] [place] NAME PLATE STAMPING MACHINE OPERATOR Unavailable Trista Thao NAME PLATE STAMPING MACHINE OPERATOR Unavailable [phone] Eliceo Bletran DO Primary Care Provider [phone] Eliceo Beltran DO Unavailable [phone] Encounter Details Date Type Department Care Team (Late st Contact Info) Description 02/13/2024 Clinisync Result Encounter [facility] External Department Unsolicited Jony Pop DO [address] [facility] [place] [address] Social History Tobacco Use Types Packs/Day Years [...] week 09/19/2023 How often do you attend [facility] center or hinduism services? Patient declined 09/19/2023 Do you belong [...] Recorded Patient Health Questionnaire-2 Score 0 10/23/2023 [facility] [place] of Occupat ional Health - Occupational Stress [...] place to sleep or slept in a [place] facility (including now)? 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 [place] [address] 09/07/2025 4:00 PM EDT Office Visit LANETTE MOODY [address] [place] [address] Jnoy Pop DO [address] [facility] [place] [address] documented as of this encounter Procedures Procedure Name Priority Date/Time Associated Diagnosis Comments ECG 12-LEAD 02/13/2024 2:55 PM EDT documented in this encounter Results * ECG 12-LEAD (02/13/2024 2:55 PM EDT) Anatomical Region Laterality Modality Other 02/13/2024 2:5 5 PM EDT Narrative 02/14/2024 6:50 [place] [address] Electrocardiograph Report Signed Patient: DRISS COPE MR#: [id number] : 1995 Acct:[id number] Age/Sex: 28 / F ADM Date: 02/13/24 Loc: [facility] Attending Dr: Jony Pop D.O. Ordering Physician: Jony Pop D.O. Date of Service: 02/13/24 Procedure(s): ECG 12 lead Accession Number(s): [id number] cc: [facility] Test Date: 2024-02-13 Pat Name: DRISS COPE Department: Room: - Gender: Female Tire Design Engineer: : 1995 Requested By: JONY POP Order Number: [id number] Reading MD: RAMSEY ORDAZ Measurements Intervals Sultan Rate: 86 P: 31 ME: 133 QRS: 20 QRSD: 89 T: 47 QT: 374 QTc: 449 Interpretive Statements SINUS RHYTHM No previous ECG available for comparison Electronically Signed On 02-14-2024 6:50:27 EDT by RAMSEY ORDAZ Dictated By: Ramsey Ordaz D.O. Signed By: 02/14/24 0650 DD/ 1455 TD/TT: Heel Finisher: Procedure Note Radiology, Radiologist, - 02/14/[address] [address] Electrocardiograph Report Signed Patient: DRISS COPE MMR#: [id number] : 1995Acct:[id number] Age/Sex: 28 / FADM Date: 02/13/24 Loc: PST Attending Dr: Jony Pop D.O. Ordering Physician: Jony Pop D.O. Date of Service: 02/13/24 Procedure(s): ECG 12 lead Accession Number(s): [id number] cc: [facility] Test Date: 2024-02-13 Pat Name: DRISS COPE Department: Room: - Gender: Female Tire Design Engineer: : 1995 Requested By: JONY POP Order Number: [id number] Reading MD: RAMSEY ORDAZ Measurements Intervals Sultan Rate: 86 P: 31 ME: 133 QRS: 20 QRSD: 89 T: 47 QT: 374 QTc: 449 Interpretive Statements SINUS RHYTHM No previous ECG available for comparison Electronically Signed On 02-14-2024 6:50:27 EDT by RAMSEY ORDAZ Dictated By: Ramsey Ordaz D.O. Signed By:02/14/24 0650 DD/ 1455 TD/TT: Heel Finisher: us Jony Pop DO [facility] Final Result documented in this encounter Visit Diagnoses Not on filedocumented in this encounter Care Teams Wallpaper Printer Relationship Specialty Start Date End Date Cruz Rodríguez MD [address] [place] [address] PCP - [facility] [employer] 09/26/2111/25 Cruz Rodrgíuez MD [address] [place] [address] PCP - General Family Medicine 04/10/23 02/13/24 Cruz Rodríguez MD [address] [place] [address] PCP - [facility] 02/24/23 4 Eliceo Beltran DO [address] [place] [address] PCP - General Family Medicine 02/14/24 Eliceo Beltran DO [address] [facility] [address] [place] [address] PCP - Medical [place] [employer] 07/27/24 11/25/99 [facility] [place] NP [address] [place] [address] Nurse Practitioner Family Medicine 10/05/23 04/14/24 Trista Thao NP [address] [place] [address] Nurse Practitioner Pulmonary Disease 10/05/23 04/14/24 documented as of this encounter
--- OUTSIDE RECORDS SUMMARY | 2025-08-27 16:41 | XMS_ITS | Encounter Summary ---
Author Organization [facility] Address [address] [facility] [place] [address] Care Team Providers Care Photograph Retoucher Name Role Phone Cruz Rodríguez MD Unavailable + 54 Cruz Rodríguez MD Primary Care Provider [phone] Cruz Rodríguez MD Unavailable + 54 [facility] [place] WATER FILTERER Unavailable Trista Thao WATER FILTERER Unavailable [phone] Eliceo Beltran DO Primary Care Provider [phone] Eliceo Beltran DO Unavailable [phone] Encounter Details Date Type Department Care Team (Late st Contact Info) Description 09/17/2023 Abstract [facility] [place] [facility] [address] [place] [address] Cruz Rodríguez MD [address] [place] [address] Social History Tobacco Use Types Packs/Day Years [...] How often do you attend chur or oriental orthodox services? Patient declined 09/19/2023 Do you belong [...] and heating? Not hard at all 09/19/2023 [facility] [place] of Occupat ional Health - Occupational Stress [...] in a jail (including now)? 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 Answer Date of Assessment Author Kaern 09/19/2023 8:30 AM EDT Mychart, Generic documented as of this encounter Plan of Treatment Upcoming Encounters Date Type Department Care Team (Late st Contact Info) Description 09/03/2025 3:50 PM EDT Routine NOMShalonda MOODY [address] [facility] [place] [address] Steph Keane, DEVYN [address] [place] [address] 09/07/2025 4:00 PM EDT Office Visit LANETTE MOODY [address] [facility] [place] [address] Nathan Pop DO [address] [place] [address] documented as of this encounter Visit Diagnoses Not on filedocumented in this encounter Care Teams Photograph Retoucher Relationship Specialty Start Date End Date Cruz Rodríguez MD [address] [facility] PCP - [facility] 09/26/2111/25 Cruz Rodríguez MD [address] [facility] PCP - General Family Medicine 04/10/23 02/13/24 Cruz Rodríguez MD [address] [place] [address] PCP - [facility] 02/24/23 4 Eliceo Beltran DO [address] [place] [address] PCP - General Family Medicine 02/14/24 Eliceo Beltran DO [address] [place] [address] PCP - Medical [employer] [employer] 07/27/24 11/25/99 [facility] [place] NP [address] [place] [address] Nurse Practitioner Family Medicine 10/05/23 04/14/24 Trista Thao NP [address] [place] [address] Nurse Practitioner Pulmonary Disease 10/05/23 04/14/24 documented as of this encounter
--- OUTSIDE RECORDS SUMMARY | 2025-08-27 16:41 | XMS_ITS | Encounter Summary ---
Author Organization [facility] Address [address] [facility] [place] [address] Care Team Providers Care Panel Laminator Name Role Phone Cruz Rodríguez MD Unavailable + 54 Cruz Rodríguez MD Unavailable + 54 Eliceo Beltran DO Primary Care Provider [phone] Eliceo Beltran DO Unavailable [phone] Encounter Details Date Type Department Care Team (Late st Contact Info) Description 08/25/2024 Orders Only [facility] [address] [place] [address] Virgen Steen LPN [address] [employer] [address] [place] [address] Social History Tobacco Use Types Packs/Day [...] often do you attend chur ch or quaker services? 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 on file Not on file documented as of this encounter Plan of Treatment Upcoming Encounters Date Type Department Care Team (Late st Contact Info) Description 09/03/2025 3:50 PM EDT Routine LANETTE MOODY [address] [facility] [place] [address] Steph Keane, DEVYN [address] [facility] [place] [address] 09/07/2025 4:00 PM EDT Office Visit LANETTE MOODY [address] [place] [address] Nathan Pop DO [address] [facility] [place] [address] documented as of this encounter Procedures [...] on filedocumented in this encounter Care Teams Panel Laminator Relationship Specialty Start Date End Date Cruz Rodríguez MD [address] [place] [address] PCP - [place] [employer] 09/26/2111/25 Cruz Rodríguez MD [address] [place] [address] PCP - [employer] 02/24/23 4 Eliceo Beltran DO [address] [place] [address] PCP - General Family Medicine 02/14/24 Eliceo Beltran DO [address] [place] [address] PCP - Medical [place] [employer] 07/27/24 11/25/99 documented as of this encounter
--- OUTSIDE RECORDS SUMMARY | 2025-08-27 16:41 | XMS_ITS | Encounter Summary ---
Author Organization [facility] Address [address] [place] [address] Care Team Providers Care Riprap Placing Supervisor Name Role Phone NirajEliceo kauffman Primary Care Provider [phone] CharlottecarolEliceo Bryant DAY Unavailable [phone] Encounter Details Date Type Department Care Team (Late st Contact Info) Description 08/20/2025 Telephone [facility] Patti MOODY [address] [employer] [place] [address] Steph Keane, DEVYN [address] [facility] [place] [address] Social History Tobacco Use Types Packs/Day [...] attend chur or episcopal services? Patient declined 12/29/2024 Do you belong to any clubs o r organizations such as yarsanism groups, unions, fraternal or athletic groups, or [...] Recorded Patient Health Questionnaire-2 Score 0 07/30/2025 [facility] - Occupational Stress Questionnaire Answer Date [...] in a halfway (including now)? No 09/19/2023 Housing Stability Vital Sign Answer Kang e Recorded In the last 12 months, was t here a time when you were not able to pay the mortgage or rent on time? No 12/29/2024 Number of Times Moved in the Last Year Not on fi le 12/29/2024 At any time in the past 12 m [facility], were you homeless or living in a halfway (including now)? 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 PVU documented in this encounter Plan of Treatment Upcoming Encounters Date Type Department Care Team (Late st Contact Info) Description 09/03/2025 3:50 PM EDT Routine NOMShalonda MOODY [address] [place] [address] Steph Keane, DEVYN [address] [place] [address] 09/07/2025 4:00 PM EDT Office Visit LANETTE MOODY [address] [place] [address] Nathan Pop DO [address] [place], [place] [address] documented as of this encounter Visit Diagnoses Diagnosis Gestational diabetes mellitus (GDM), antepartum, gestational diabetes method of control unspecified (HHS-HCC) Elevated glucose tolerance test Impaired glucose tolerance test documented in this encounter Care Teams Riprap Placing Supervisor Relationship Specialty Start Date End Date Eliceo Beltran DO [address] [place] [address] PCP - General Family Medicine 02/14/24 Eliceo Beltran DO [address] [place] [address] PCP - Medical [facility] [employer] 07/27/24 11/25/99 documented as of this encounter
--- OUTSIDE RECORDS SUMMARY | 2025-08-27 16:41 | XMS_ITS | Clinical Summary ---
Author Organization [facility] Address [address] [facility] [place] [address] Care Team Providers Care Foreign Service Officer Name Role Phone Eliceo Beltran DO Primary Care Provider [phone] Eliceo Beltran DO Unavailable [phone] Allergies No known active allergies Medications metoprolol succinate XL (Toprol-XL) 25 MG 24 hr tabletIndication s:Hypertension, unspecified type Take 1 tablet by mouth daily 90 tablet 1 5 Active Vit-Fe Fumarate-FA ( Vitamins) 28-0.8 MG tabletIndication s:, unspecified gestational age ([facility]),Encoun ter for supervision of normal first in first trimester ([facility]) Take 1 tablet by mouth Daily 30 tablet 11 5 05/01/20 26 Active labetalol (Normodyne) 100 MG tabletIndication s:Hypertension, unspecified type Take 1 tablet (100 mg) by mouth in the morning and 1 tablet (100 mg) before bedtime. 60 tablet 5 5 07/30/20 26 Active Lancets Ultra Thin miscIndications: Gestational diabetes mellitus (GDM), antepartum, gestational diabetes method of control unspecified ([facility]),Elevat ed glucose tolerance test 1 each [...] 09/19/20 25 Active Blood Glucose Monitoring Suppl ([employer] Glucometer) w/Device kitIndications:G estational diabetes mellitus (GDM), [...] Encounters Date Type Department Care Team Description 08/27/2025 3:20 PM EDT Routine [facility] Patti MOODY [address] [place] [address] Steph Keane, DEVYN 26 weeks gestation of ([facility]); Second trimester ([facility]); induced hypertension, antepartum ([facility]); Gestational diabetes mellitus (GDM) in second trimester, gestational diabetes method of control unspecified ([facility]) 08/27/2025 Bamboo flowsheet [facility] Patti MOODY [address] [place] [address] Steph Keane NP 08/25/2025 Clinisync Result Encounter NOMS External Department Unsolicited Provider, Generic External Data 08/20/2025 Abstract [facility] Patti MOODY [address] [place] [address] Nathan Pop, 08/20/2025 Telephone [facility] Patti MOODY [address] [place] [address] Steph Keane, DEVYN 08/17/2025 Abstract [facility] [address] [facility] [address] [place] [address] Eliceo Beltran, DO 08/17/2025 Abstract [facility] [address] [place] [address] Eliceo Beltran, DO 08/17/2025 Telephone [facility] Patti MOODY [address] [place] [address] Nathan Pop, 08/12/2025 2:40 [place] [address] Nathan Pop, DO 24 weeks gestation of ([facility]); Second trimester ([facility]); Elevated glucose tolerance test 08/12/2025 2:00 PM EDT [place] [address] Encounter for follow-up ultrasound of anatomy ([facility]) 08/12/2025 Telephone [facility] [address] [place] [address] Bill Gould LPN Results 08/12/2025 [facility] [address] [place] [address] Eliceo Beltran, 08/04/2025 [facility] [address] [place] [address] Bill Gould LPN Results 07/30/2025 3:40 PM EDT Office Visit [facility] [address] [place] [address] Eliceo Beltran, DO Wellness examination (Primary Dx); Hypertension, unspecified type ; Lipid screening 07/30/2025 [facility] [address] [place] [address] Eliceo Beltran, 07/30/2025 Travel 07/21/2025 Telephone [facility] Patti MOODY [address] [place], [place] [address] [address] Nathan Pop, 07/15/2025 3:30 PM [place] [address] Nathan Pop, DO 20 weeks gestation of ([facility]); Second trimester ([facility]); Diabetes mellitus screening 07/15/2025 2:30 PM EDT [place] [address] Screening, , for anatomic survey ([facility]) 07/15/2025 Clinisync Result Encounter NOMS External Department Unsolicited Nathan Pop, DO 06/25/20[place] [address] Nathan Pop, DO 06/22/2025 2:10 PM [place] [address] Nathan Pop, DO Sinusitis, unspecified chronicity, unspecified location (Primary Dx); Second trimester ([facility]); 17 weeks gestation of ([facility]); Screening, , for anatomic survey ([facility]) 06/22/2025 External Result Encounter NOMS External Department Unsolicited Nathan Pop, DO 06/22/2025 Bamboo flowsheet [facility] Patti MOODY [address] [place], [place] [address] [address] Nathan Pop, DO 06/15/2025 Travel 06/09/2025 Telephone [facility] [place] [address] Hina Go LPN from Last 3 Months Immunizations Immunization Administration [...] week 12/29/2024 How often do you attend [facility] or taoist services? 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 file Not on file Last Filed Vital Signs Vital Sign Reading Time Taken Comments Blood Pressure 158/92 08/27/2025 3:37 PM EDT Pulse 97 07/30/2025 3:36 PM EDT Temperature 36.2 C (97.1 F) 07/30/2025 3:36 PM EDT Respiratory Rate 16 10/23/2023 4:16 PM EST Oxygen Saturation 98% 07/30/2025 3:36 PM EDT Inhaled Oxygen Concentration - - Weight 72.5 kg (159 lb 12.8 oz) 08/27/2025 3:37 PM EDT Height 157.5 cm (5' 2 ) 07/30/2025 3:36 PM EDT Body Mass Index 29.23 07/30/2025 3:36 PM EDT Plan of Treatment Upcoming Encounters Date Type Department Care Team (Late st Contact Info) Description 09/03/2025 3:50 PM EDT Routine [facility] [place] [facility] [address] [address] Steph Keane, PAD MACHINE OFFBEARER [address] [place] [address] 09/07/2025 4:00 PM EDT Office Visit LANETTE MOODY [address] [address] Nathan Pop DO [address] [place] [address] Health Maintenance Due Date Last Done Comments Influenza Vaccine (#1) 2025 09/11/2014 Pap Smear 08/18/2027 08/18/2024, 07/28, 06/20/2022, Additional history exists Cervical Cancer Screening 09/03/2028 HPV/Cotest 09/03/2028 09/03/2023 Procedures Procedure Name Priority Date/Time Associated Diagnosis Comments POCT URINALYSIS DIPSTICK Routine 08/27/2025 3:53 PM EDT 26 weeks gestation of ([facility]) URINE CULTURE, ROUTINE Routine 08/25/2025 8:10 AM EDT POCT URINALYSIS DIPSTICK Routine 08/12/2025 2:39 PM EDT 24 weeks gestation of ([facility]) Second trimester ([facility]) US OB LIMITED 1+ FETUSES Routine 08/12/2025 2:22 PM EDT Encounter for follow-up ultrasound of anatomy ([facility]) AFP, SERUM, OPEN SPINA BIFIDA Routine 07/15/2025 5:07 PM EDT POCT URINALYSIS DIPSTICK Routine 07/15/2025 3:50 PM EDT 20 weeks gestation of ([facility]) Second trimester ([facility]) US OB 14+ WEEKS ANATOMY SCAN Routine 07/15/2025 3:26 PM EDT Screening, , for anatomic survey ([facility]) RECURRENT VAGINITIS (HTRX) Routine 06/22/2025 4:25 PM EDT POCT URINALYSIS DIPSTICK Routine 06/22/2025 2:39 PM EDT Second trimester ([facility]) 17 weeks gestation of ([facility]) PAP SMEAR Routine 08/18/2024 12:00 AM EDT THINPREP PAP AND HPV MRNA E6/E7 W/RFL HPV 16,18/45 Routine 09/03/2023 4:00 PM EDT Well woman exam with routine gynecological exam from Last 3 Months or Most Recently Relevant to Health Maintenance Results * POCT urinalysis dipstick manually resulted (08/27/2025 3:53 PM EDT) Only the most recent of4 [...] OF CARE TEST ENTER/EDIT ORDERABLES Final Result * URINE CULTURE, ROUTINE (08/25/2025 8:10 AM EDT) URINE CULTURE, ROUTINE Urine Culture, Routine [facility] URINE CULTURE, ROUTINE Mixed urogenital robert [facility] URINE CULTURE, ROUTINE 25,000-50,000 colony forming units per mL [facility] URINE CULTURE, ROUTINE Performed at: [facility]INE C[facility]URE, ROUTINE [address] [place], [place] [id number] [facility] URINE CULTURE, ROUTINE Harvest Worker Field Crop: Cm Sandoval PhD, Phone: [phone] [facility] 08/25/2025 8:10 AM EDT 08/25/2025 8:30 AM EDT Narrative MATTHEWISYNC - 08/26/2025 10:07 PM EDT us Generic External Data Provider LAB BLOOD ORDERAB LES Final Result [facility] * US OB limited 1+ fetuses (08/12/2025 [...] OPEN SPINA BIFIDA (07/15/2025 5:07 PM EDT) Pathologist [facility] RESULTS Report . [facility] TEST RESULTS: *Screen Negative* . [facility] GEST. AGE ON COLLECTION DATE 20.6 . weeks [facility] GESTAT. AGE BASED ON LMP . [facility] Comment: Recalculations are not recommended when gestational dating by LMP and ultrasound are within 10 days. [age] [facility] RACE . [facility] WEIGHT 146 . lbs [facility] INSULIN DEP DIABETES No . [facility] MULTIPLE GESTATION No . [facility] AFP VALUE 59.2 . ng/mL [facility] AFP MOM 0.95 . [facility] [place] [address] [place] [address] . [facility] INTERPRETATION Comment . [facility] Comment: Interpretation: Screen Negative This result [...] Customer Services to discuss available options. The [employer] recommends amniocentesis be offered to women age 35 and older. COMMENT: Comment . [facility] Comment: Amy Ramos, Ph.D., [facility] Director References: Available Upon Request. Multiples Of Median Cutoffs For AFP Elevations Hsieh 2.5 Black 2.8 IDD 2.0 Twins 4.5 Abbreviation Definitions IDD - Insulin Dep Diabetes OSBR - Open Spina Bifida Risk For further inquiries contact [employer] at [phone]. This test was developed and its performance characteristics determined by [employer]. It has not been cleared or approved by the Food and Drug Administration. Performed at: [facility] [employer] [address] [facility], [place], [place] [id number] Harvest Worker Field Crop: Dona Justin [facility], Phone: [phone] 07/15/2025 5:07 PM EDT 07/15/2025 5:10 PM EDT Narrative CLINISYNC - 07/18/2025 1:07 AM EDT N N LMP [id number] 2 17 N 1 Y 146 N N N N N White/ us Generic External Data Provider LAB BLOOD ORDERAB LES Final Result [facility] * US OB 14+ weeks anatomy scan [...] recommended. Interpreted by: Electronically signed by TRAVIS FRAGOSO II, MD, PHD at 16-Jul-2025 08:07:07 AM [facility] Procedure Note Travis Fragoso MD - 07/16/2025 EXAM: US OB 14+ [...] recommended. Interpreted by: Electronically signed by TRAVIS FRAGOSO II, MD, PHD [id number] 08:07:07 AM [facility] us Nathan Kiesha DO IMG OB US PROCEDURES Final Resul t * (ABNORMAL) RECURRENT VAGINITIS (HTRX) (06/22/2025 4:25 PM EDT) [facility] ATOPOBIUM VAGINAE 0 19.961 - 24.689 ppm 06/24/2025 6:19 AM EDT [facility] ATOPOBIUM VAGINAE Not Detected 19.961 - 24.689 [...] at [facility] NEISSERIA GONORRHOEAE Not Detected 23.000 - 32.587 ppm 06/24/2025 6:19 AM EDT [facility] TRICHOMONAS VAGINALIS 0 23.000 - 31.995 ppm 06/24/2025 6:19 AM EDT [facility] TRICHOMONAS VAGINALIS Not Detected 23.000 - 31.995 ppm 06/24/2025 6:19 AM EDT [facility] MYCOPLASMA GENITALIUM 0 19.961 - 24.689 ppm 06/24/2025 6:19 AM EDT [facility] MYCOPLASMA GENITALIUM Not Detected 19.961 - 24.689 ppm 06/24/2025 6:19 AM EDT [facility] Tissue 06/22/2025 4:25 PM EDT 06/24/2025 1:21 AM EDT us Nathan Pop DO LAB BLOOD ORDERABLES Final Resul t Performing Organization Address City/[facility]/ZIP Co de Phone Number [facility] [address] [address] * Pap Smear (08/18/2024 12:00 AM EDT) Swab Cervical swab / Unknown us Kiesha Nurse N[facility] Bcp Ob LAB CYTOLOGY ORDERABLES Final Result EXTERNAL LAB * THINPREP PAP AND HPV MRNA E6/E7 W/RFL HPV 16,18/45 (09/03/2023 4:00 PM EDT) us [facility] TAL[facility]ERA LAB BLOOD ORDERABLES Final Resul t Performing Organization Address City/[facility]/ZIP Co de Phone Number EXTERNAL LAB from Last 3 Months or Most Recently Relevant to Health Maintenance Insurance [employer] Care Teams Foreign Service Officer Relationship Specialty Start Date End Date Eliceo Beltran DO [address] [place] [address] PCP - General Family Medicine 02/14/24 Eliceo Beltran DO [address] [place] [address] PCP - Medical [place] [employer] 07/27/24 11/25/99
--- OUTSIDE RECORDS SUMMARY | 2025-08-27 16:41 | XMS_ITS | Encounter Summary ---
Author Organization [facility] Address [address] [facility] [place] [address] Care Team Providers Care Fitness Floor Attendant Name Role Phone Cruz Rodríguez MD Unavailable + [phone] Cruz Rodríguez MD Primary Care Provider [phone] Cruz Rodríguez MD Unavailable + [phone] [facility] [place] FILM REPRODUCER Unavailable Trista Thao FILM REPRODUCER Unavailable [phone] Eliceo Beltran DO Primary Care Provider [phone] Eliceo Beltran DO Unavailable [phone] Encounter Details Date Type Department Care Team (Late st Contact Info) Description 09/19/2023 Orders Only [facility] Family Medicine [address] [place] [address] Cruz Rodríguez MD [address] [place] [address] Social History Tobacco Use Types Packs/Day Years [...] How often do you attend [facility] or anabaptism services? Patient declined 09/19/2023 Do you belong [...] and heating? 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 [facility] [place] [address] 09/07/2025 4:00 PM EDT Office Visit LANETTE MOODY [address] [place] [address] Nathan Pop DO [address] [facility] [facility] [address] [facility] [place] [address] documented as of this encounter Visit Diagnoses Not on filedocumented in this encounter Care Teams Fitness Floor Attendant Relationship Specialty Start Date End Date Cruz Rodríguez MD [address] [facility] PCP - [facility] 09/26/2111/25 Cruz Rodríguez MD [address] [place] [id number] PCP - General Family Medicine 04/10/23 02/13/24 Cruz Rodríguez MD [address] [place] [id number] PCP - [facility] 02/24/23 4 Eliceo Beltran DO [address] [place] [address] PCP - General Family Medicine 02/14/24 Eliceo Beltran DO [address] [place] [address] PCP - Medical [place] [employer] 07/27/24 11/25/99 [facility] [place] NP [address] [place] [address] Nurse Practitioner Family Medicine 10/05/23 04/14/24 Trista Thao NP [address] [place] [address] Nurse Practitioner Pulmonary Disease 10/05/23 04/14/24 documented as of this encounter
--- OUTSIDE RECORDS SUMMARY | 2025-08-27 16:41 | XMS_ITS | Encounter Summary ---
Author Organization [facility] tem Address [id number] [address] [place] [address] Care Team Providers Care Air Tube Releaser Name Role Phone Crzu Rodríguez MD Primary Care Provider [phone] Encounter Details Date Type Department Care Team (Late st Contact Info) Description 08/18/2025 Orders Only Maternal- Medicine at [facility] [address] [facility] [place] [address] Khalida Garrett RN History of pre-eclampsia in [...] 09/10/2025 9:45 AM EDT Appointment Maternal Medicine [place] [address] [facility] [address] [place] [address] 09/10/2025 11:00 AM EDT Telemedicine Maternal Medicine [place] [address] [facility] [address] [place] [address] Quynh Clements MD [address], [address] [place] [address] documented as of this encounter Procedures Procedure [...] history documented in this encounter Care Teams Air Tube Releaser Relationship Specialty Start Date End Date Cruz Rodríguez MD [address] [place] [address] PCP - General Family Medicine 12/02/18 documented as of this encounter
--- OUTSIDE RECORDS SUMMARY | 2025-08-27 16:41 | XMS_ITS | Encounter Summary ---
Author Organization [facility] Address [address] [place] [address] Care Team Providers Care Braid Cutter Name Role Phone Eliceo Beltran Primary Care Provider [phone] CharlottecarolEliceo Unavailable [phone] Encounter Details Date Type Department Care Team (Late st Contact Info) Description 08/27/2025 Bamboo flowsheet [facility]BGYN [address] [place] [address] Steph Keane, CHIEF EXECUTIVE [address] [place] [address] Social History Tobacco Use Types Packs/Day [...] ways by your partner or ex-partner? 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 file Not on file documented as of this encounter Plan of Treatment Upcoming Encounters Date Type Department Care Team (Eliezer yo Contact Info) Description 09/03/2025 3:50 PM EDT Routine NOMShalonda MOODY [address] [place] [address] Steph Keane, DEVYN [address] [facility] [address] [place] [address] 09/07/2025 4:00 PM EDT Office Visit LANETTE MOODY [address] [place] [address] Nathan Pop DO [address] [facility] [address] [place], [place] [address] documented as of this encounter Visit Diagnoses Not on filedocumented in this encounter Care Teams Braid Cutter Relationship Specialty Start Date End Date Eliceo Beltran DO [address] [place] [address] PCP - General Family Medicine 02/14/24 Eliceo Beltran DO [address] [place] [address] PCP - Medical [place] [employer] 07/27/24 11/25/99 documented as of this encounter
--- OUTSIDE RECORDS SUMMARY | 2025-08-27 16:41 | XMS_ITS | Patient Health Record ---
Author Organization [facility] Address [address] [place] [address] Care Team Providers Care Sales Support Representative Name Role Phone Cruz Rodríguez Primary Care [...] Status W/U Status Risk Notes Problem Tachycardia (2235666) Tachycardia (R00.0) Active confirmed Problem Obesity (716911602) Obesity (BMI 30-39.9) (E66.9) Active confirmed Plan Of Treatment No Information Insurance Providers Payer Name Payer Address Payer Phone Subscriber Number Group Number Insured Name Patient Relationship to Insured Coverage Start Date Coverage End Date NEGRA LOZANO [facility] [address] [place] [address] [id number] Driss Woodruff Self - patient is the insured [employer] [place] [address] [place] [address] [id number] Driss Woodruff Self - patient is the insured Medical (General) History Medical History History ICD Code Tachycardia R00.0 Surgical History Surgery Date(Month/Year) right shoulder surgery endometriosis appendectomy Hospitalization History Reason Date(Month/Year) surgeries childbirth
--- OUTSIDE RECORDS SUMMARY | 2025-08-27 16:41 | XMS_ITS | Encounter Summary ---
Author Organization [facility] Address [address] [place] [address] Care Team Providers Care Licensed And Certified Midwife Name Role Phone Cruz Rodríguez MD Unavailable + [phone] Cruz Rodríguez MD Primary Care Provider [phone] Cruz Rodríguez MD Unavailable + 54 [place] ONLINE EDUCATION MANAGER Unavailable Trista Thao ONLINE EDUCATION MANAGER Unavailable [phone] Eliceo Beltran DO Primary Care Provider [phone] Eliceo Beltran DO Unavailable [phone] Encounter Details Date Type Department Care Team (Late st Contact Info) Description 09/10/2023 Abstract [facility] Podiatry [address] [facility] [address] [place] [phone] Rosio Booth DPM [address] [facility] [address] [place] [address] Social History Tobacco Use Types Packs/Day Years [...] 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 Not [...] 3:50 PM EDT Routine NOMShalonda MOODY [address] [facility] [place] [address] Steph Keane, ONLINE EDUCATION MANAGER [address] [place] [address] 09/07/2025 4:00 PM EDT Office Visit LANETTE MOODY [address] [facility] [place] [address] Nathan Pop DO [address] [place], [place] [id number] documented as of this encounter Visit Diagnoses Not on filedocumented in this encounter Care Teams Licensed And Certified Midwife Relationship Specialty Start Date End Date Cruz Rodríguez MD [address] [place] [address] PCP - [place] [employer] 09/26/2111/25 Cruz Rodríguez MD [address] [place] [address] PCP - General Family Medicine 04/10/23 02/13/24 Cruz Rodríguez MD [address] [place] [address] PCP - [facility] 02/24/23 4 Eliceo Beltran DO [address] [place] [address] PCP - General Family Medicine 02/14/24 Eliceo Beltran DO [address] [place] [address] PCP - Medical [place] [employer] 07/27/24 11/25/99 [facility] [place] NP [address] [place] [address] Nurse Practitioner Family Medicine 10/05/23 04/14/24 Trista Thao, ONLINE EDUCATION MANAGER [address] [place] [address] Nurse Practitioner Pulmonary Disease 10/05/23 04/14/24 documented as of this encounter
--- OUTSIDE RECORDS SUMMARY | 2025-08-27 16:41 | XMS_ITS | Encounter Summary ---
Author Organization [facility] Address [address] [place] [address] Care Team Providers Care Supervisor Aluminum Fabrication Name Role Phone NirajEliceo kauffman Primary Care Provider [phone] Charlottecarol Eliceo Hurtado DO Unavailable [phone] Encounter Details Date Type Department Care Team (Late st Contact Info) Description 05/11/2025 Abstract [facility] [address] [facility] [place] [phone] Nathan Pop DO [address] [facility] [address] [place], [facility] Social History Tobacco Use Types Packs/Day [...] How often do you attend chur or church services? Patient declined 12/29/2024 Do you belong to any clubs o r organizations such as oriental orthodox groups, unions, [email or web address] or athletic groups, or school groups? No [...] Patient Health Questionnaire-2 Score 0 12/30/2024 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 Not on file documented as of this encounter Plan of Treatment Upcoming Encounters Date Type Department Care Team (Late st Contact Info) Description 09/03/2025 3:50 PM EDT Routine NOMShalonda MOODY [address] [place] [address] Steph Keane, DEVYN [address] [facility] [place] [address] 09/07/2025 4:00 PM EDT Office Visit LANETTE MOODY [address] [place] [address] Nathan Pop DO [address] [facility] [place] [address] documented as of this encounter Visit Diagnoses Not on filedocumented in this encounter Care Teams Supervisor Aluminum Fabrication Relationship Specialty Start Date End Date Eliceo Beltran DO [address] [place] [address] PCP - General Family Medicine 02/14/24 Eliceo Beltran DO [address] [place] [address] PCP - Medical [place] [employer] 07/27/24 11/25/99 documented as of this encounter
--- OUTSIDE RECORDS SUMMARY | 2025-08-27 16:42 | XMS_ITS | Encounter Summary ---
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] DATE OF EXAM: Jun 12 2023 2:47PM [facility] 0713 - MRI FEMALE PELVIS WO/W IVCON [...] additional findings. IMPRESSION: No deep infiltrating endometriosis. Photographic Equipment Assembler: PSCB Transcribe Date/Time: Jun 12 2023 2:54P Dictated by : ASHLEY DUKE MD This examination was interpreted and the report reviewed and electronically signed by: SONIDO FLAHERTY MD on Jun 12 2023 4:51PM EST [id number]^SI^ACN Procedure Note Radiology, Radiologist, - 06/13/2023 * * *Final Report* * * DATE OF EXAM: Jun 12 2023 2:47PM [facility] 0713 - MRI FEMALE PELVIS WO/W IVCON [...] additional findings. IMPRESSION: No deep infiltrating endometriosis. Photographic Equipment Assembler: [facility] Transcribe Date/Time: Jun 12 2023 2:54P Dictated by : ASHLEY DUKE MD This examination was interpreted and the report reviewed and electronically signed by: SONIDO FLAHERTY MD on Jun 12 2023 4:51PM EST [id number]^SI^ACN us Generic External Data Provider [facility] Final Result documented in this encounter Visit Diagnoses Not on filedocumented in this encounter Care Teams Network Internship Relationship Specialty Start Date End Date Cruz Rodríguez MD [address] [place] [address] PCP - [place] [employer] 09/26/2111/25 Cruz Rodríguez MD [address] [place] [address] PCP - General Family Medicine 04/10/23 02/13/24 Cruz Rodríguez MD [address] [place] [address] PCP - [facility] 02/24/23 4 Eliceo Beltran DO [address] [place] [address] PCP - General Family Medicine 02/14/24 Eliceo Beltran DO [address] [place] [address] PCP - Medical [place] [employer] 07/27/24 11/25/99 [facility] [place] NP [address] [place] [address] Nurse Practitioner Family Medicine 10/05/23 04/14/24 Trista Thao NP [address] [place] [address] Nurse Practitioner Pulmonary Disease 10/05/23 04/14/24 documented as of this encounter
--- OUTSIDE RECORDS SUMMARY | 2025-08-27 16:42 | XMS_ITS | Encounter Summary ---
Author Organization [facility] Address [address] [facility] [place] [address] Care Team Providers Care Cat Scan Tech Name Role Phone Cruz Rodríguez MD Unavailable + 54 Cruz Rodríguez MD Primary Care Provider [phone] Cruz Rodríguez MD Unavailable + 54 [facility] [place] BIOLOGICAL LAB TECHNICIAN Unavailable Trista Thao BIOLOGICAL LAB TECHNICIAN Unavailable [phone] Eliceo Beltran DO Primary Care Provider [phone] Eliceo Beltran DO Unavailable [phone] Encounter Details Date Type Department Care Team (Late st Contact Info) Description 04/23/2023 Abstract LANETTE Davalos Family Medicine [address] [place] [address] Cruz Rodríguez MD [address] [place] [address] Social History Tobacco Use Types Packs/Day Years [...] 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 [...] 3:50 PM EDT Routine NOMShalonda MOODY [address] [facility] [place] [address] Steph Keane, DEVYN [address] [facility] [place] [address] 09/07/2025 4:00 PM EDT Office Visit LANETTE MOODY [address] [facility] [address] [place], [phone] Nathan oPp DO [address] [facility] [address] [place], [place] [phone] documented as of this encounter Visit Diagnoses Not on filedocumented in this encounter Care Teams Cat Scan Tech Relationship Specialty Start Date End Date Cruz Rodríguez MD [address] [place] [address] PCP - [place] [employer] 09/26/2111/25 Cruz Rodríguez MD [address] [place] [address] PCP - General Family Medicine 04/10/23 02/13/24 Cruz Rodríguez MD [address] [place] [address] PCP - [facility] 02/24/23 4 Eliceo Beltran DO [address] [place] [address] PCP - General Family Medicine 02/14/24 Eliceo Beltran DO [address] [place] [address] PCP - Medical [place] [employer] 07/27/24 11/25/99 [facility] [place] NP [address] [place] [address] Nurse Practitioner Family Medicine 10/05/23 04/14/24 Trista Thao BIOLOGICAL LAB TECHNICIAN [address] [place] [address] Nurse Practitioner Pulmonary Disease 10/05/23 04/14/24 documented as of this encounter
--- OUTSIDE RECORDS SUMMARY | 2025-08-27 16:42 | XMS_ITS | Encounter Summary ---
Author Organization [employer] tem Address [id number] [address] [place] [address] Care Team Providers Care Manager Qa Name Role Phone Cruz Rodríguez MD Primary Care Provider [phone] Encounter Details Date Type Department Care Team [...] 09/10/2025 9:45 AM EDT Appointment Maternal Medicine [place] [address] [facility] [address] [place] [address] 09/10/2025 11:00 AM EDT Telemedicine Maternal Medicine [place] [address] [facility] 4 [place] [address] Quynh Clements MD [address] [facility], [address] [place] [address] documented as of this encounter Visit Diagnoses Not on filedocumented in this encounter Care Teams Manager Qa Relationship Specialty Start Date End Date Cruz Rodríguez MD [address] [place] [address] PCP - General Family Medicine 12/02/18 documented as of this encounter
--- OUTSIDE RECORDS SUMMARY | 2025-08-27 16:42 | XMS_ITS | Encounter Summary ---
Author Organization [facility] Address [address] [facility] [place] [address] Care Team Providers Care Wild Life Manager Name Role Phone Cruz Rodríguez MD Unavailable + 54 Cruz Rodríguez MD Primary Care Provider +54 Cruz Rodríguez MD Unavailable + 54 [facility] [place] TEMPLATE CLERK Unavailable Trista Thao TEMPLATE CLERK Unavailable +[phone] Eliceo Beltran DO Primary Care Provider [phone] Eliceo Beltran DO Unavailable [phone] Encounter Details Date Type Department Care Team (Late st Contact Info) Description 05/23/2023 Abstract NOMShalonda lIia Podiatry [address] [facility] [address] [place] [address] Briana Robles LPN [address] [facility] [place] [address] [place] [address] Social History Tobacco Use Types Packs/Day Years [...] 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 Not [...] 3:50 PM EDT Routine LANETTE MOODY [address] [facility] [place] [address] Steph Keane, TEMPLATE CLERK [address] [facility] [place] [address] 09/07/2025 4:00 PM EDT Office Visit LANETTE MOODY [address] [facility] [place] [address] Nathan Pop DO [address] [facility] [address] [place], [place] [address] documented as of this encounter Visit Diagnoses Not on filedocumented in this encounter Care Teams Wild Life Manager Relationship Specialty Start Date End Date Cruz Rodríguez MD [address] [place] [address] PCP - [place] [employer] 09/26/2111/25 Cruz Rodríguez MD [address] [place] [address] PCP - General Family Medicine 04/10/23 02/13/24 Cruz Rodríguez MD [address] [place] [address] [address] - [facility] 02/24/23 4 Eliceo Beltran DO [address] [place] [address] PCP - General Family Medicine 02/14/24 Eliceo Beltran DO [address] [place] [address] PCP - Medical [place] [employer] 07/27/24 11/25/99 [facility] [place] NP [address] [place] [address] Nurse Practitioner Family Medicine 10/05/23 04/14/24 Trista Thao, TEMPLATE CLERK [address] [place] [address] Nurse Practitioner Pulmonary Disease 10/05/23 04/14/24 documented as of this encounter
--- OUTSIDE RECORDS SUMMARY | 2025-08-27 16:42 | XMS_ITS | Encounter Summary ---
Author Organization [facility] Address [address] [facility] [place] [address] Care Team Providers Care Corporate Administrator Name Role Phone Cruz Rodríguez MD Unavailable + 54 Cruz Rodríguez MD Primary Care Provider +54 Cruz Rodríguez MD Unavailable + 54 [facility] CIRCULATION SUPERVISOR Unavailable Trista Thao CIRCULATION SUPERVISOR Unavailable +[phone] Eliceo Beltran DO Primary Care Provider +[phone] Eliceo Beltran DO Unavailable [phone] Encounter Details Date Type Department Care Team (Late st Contact Info) Description 07/24/2023 Abstract NOMShalonda [place] Podiatry [address] [facility] [address] [place] [address] Kellee Starkey LPN Social History Tobacco Use [...] 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 on file documented as of this encounter Plan of Treatment Upcoming Encounters Date Type Department Care Team (Late st Contact Info) Description 09/03/2025 3:50 PM EDT Routine NOMShalonda MOODY [address] [facility] [place] [address] Steph Keane, CIRCULATION SUPERVISOR [address] [facility] [place] [address] 09/07/2025 4:00 PM EDT Office Visit LANETTE MOODY [address] [facility] [place] [address] Nathan Pop DO [address] [facility] [address] [place], [place] [address] documented as of this encounter Visit Diagnoses Not on filedocumented in this encounter Care Teams Corporate Administrator Relationship Specialty Start Date End Date Cruz Rodríguez MD [address] [facility] PCP - [facility] 09/26/2111/25 Cruz Rodríguez MD [address] [place] [address] PCP - General Family Medicine 04/10/23 02/13/24 Cruz Rodríguez MD [address] [place] [address] PCP - [facility] 02/24/23 4 Eliceo Beltran DO [address] [place] [address] PCP - General Family Medicine 02/14/24 Eliceo Beltran DO [address] [place] [address] PCP - Medical [place] [employer] 07/27/24 11/25/99 [facility] [place] NP [address] [place] [address] Nurse Practitioner Family Medicine 10/05/23 04/14/24 Trista Thao CIRCULATION SUPERVISOR [address] [place] [address] Nurse Practitioner Pulmonary Disease 10/05/23 04/14/24 documented as of this encounter
--- OUTSIDE RECORDS SUMMARY | 2025-08-27 16:42 | XMS_ITS | Encounter Summary ---
Author Organization [facility]ive [facility] tem Address [id number] [address] [place] [address] Care Team Providers Care Direct Sales Consultant Name Role Phone Cruz Rodríguez MD Primary Care Provider [phone] Encounter Details Date Type Department Care Team (Late Contact Info) Description 08/19/2025 Orders Only Maternal- Medicine at [facility] [address] [place] [address] Ref Prov, [place] [address] Social History Tobacco Use Types Packs/Day Years [...] 09/10/2025 9:45 AM EDT Appointment Maternal Medicine [place] [address] [facility] 4 [place] [address] 09/10/2025 11:00 AM EDT Telemedicine Maternal Medicine [place] [address] [facility] 4 [place] [address] Quynh Clements MD [address] [facility] [address] [facility], [address] [place] [address] documented as of this encounter Procedures Procedure [...] ORDERABLES Jayla l Result Performing Organization Address [facility] de Phone Number MANUALLY TRANSCRIBED RESULTS * Unlisted Lab Test (07/04/2025 11:17 AM EDT) us Not In System Ref Prov LAB BLOOD ORDERABLES Jayla l Result Performing Organization Address [facility] de Phone Number MANUALLY TRANSCRIBED RESULTS * Ultrasound - Office (05/01/2025 10:15 AM EDT) Anatomical Region Laterality Modality AMB Ultrasound us Not In System Ref Prov IMG US ORDERABLES Final R esult documented in this encounter Visit Diagnoses Not on filedocumented in this encounter Care Teams Direct Sales Consultant Relationship Specialty Start Date End Date Cruz Rodríguez MD [address] [place] [address] PCP - General Family Medicine 12/02/18 documented as of this encounter
--- OUTSIDE RECORDS SUMMARY | 2025-08-27 16:42 | XMS_ITS | Encounter Summary ---
Author Organization [employer] tem Address [id number] [address] [place] [address] Care Team Providers Care Manager Technical Sales Name Role Phone Cruz Rodríguez MD Primary Care Provider [phone] Encounter Details Date Type Department Care Team [...] 09/10/2025 9:45 AM EDT Appointment Maternal Medicine [place] [address] [facility] [address] [place] [address] 09/10/2025 11:00 AM EDT Telemedicine Maternal Medicine [place] [address] [facility] 4 [place] [address] Quynh Clements MD [address] [facility], [address] [place] [address] documented as of this encounter Visit Diagnoses Not on filedocumented in this encounter Care Teams Manager Technical Sales Relationship Specialty Start Date End Date Cruz Rodríguez MD [address] [place] [address] PCP - General Family Medicine 12/02/18 documented as of this encounter
--- OUTSIDE RECORDS SUMMARY | 2025-08-27 16:42 | XMS_ITS | Encounter Summary ---
Author Organization [facility] Address [address] [place] [facility] [address] Care Team Providers Care Compositor Apprentice Name Role Phone Cruz Rodríguez MD Unavailable + 54 Cruz Rodríguez MD Primary Care Provider +54 Cruz Rodríguez MD Unavailable + 54 [facility] NETWORK SYSTEMS OPERATOR Unavailable Trista Thao NETWORK SYSTEMS OPERATOR Unavailable +-[phone] Eliceo Beltran DO Primary Care Provider [phone] Eliceo Beltran DO Unavailable [phone] Encounter Details Date Type Department Care Team (Late st Contact Info) Description 05/01/2023 Abstract [facility] [place] Podiat[facility] [address] [facility] [address] [place] [address] Briana Robles LPN [address] [facility] [place] [address] [place] [address] Social History Tobacco Use Types Packs/Day Years [...] 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 [...] 3:50 PM EDT Routine LANETTE MOODY [address] [facility] [place] [address] Steph Keane, NETWORK SYSTEMS OPERATOR [address] [facility] [place] [address] 09/07/2025 4:00 PM EDT Office Visit LANETTE MOODY [address] [facility] [place] [address] Nathan Pop DO [address] [facility] [address] [place], [place] [address] documented as of this encounter Visit Diagnoses Not on filedocumented in this encounter Care Teams Compositor Apprentice Relationship Specialty Start Date End Date Cruz Rodríguez MD [address] [place] [address] PCP - [place] [employer] 09/26/2111/25 Cruz Rodríguez MD [address] [place] [address] PCP - General Family Medicine 04/10/23 02/13/24 Cruz Rodríguez MD [address] [place] [address] PCP - [facility] 02/24/23 4 Eliceo Beltran DO [address] [place] [address] PCP - General Family Medicine 02/14/24 Eliceo Beltran DO [address] [place] [address] PCP - Medical [place] [employer] 07/27/24 11/25/99 [facility] [place] NP [address] [place] [address] Nurse Practitioner Family Medicine 10/05/23 04/14/24 Trista Thao NETWORK SYSTEMS OPERATOR [address] [place] [address] Nurse Practitioner Pulmonary Disease 10/05/23 04/14/24 documented as of this encounter
--- OUTSIDE RECORDS SUMMARY | 2025-08-27 16:42 | XMS_ITS | Encounter Summary ---
Author Organization [facility] tem Address [id number] [address] [place] [address] Care Team Providers Care Child Caregiver Name Role Phone Cruz Rodríguez MD Primary Care Provider [phone] Encounter Details Date Type Department Care Team (Late Contact Info) Description 08/21/2025 Abstract Maternal- Medicine at [facility] [address] [facility] [place] [address] External, Scanning Provider Social History Tobacco Use [...] 09/10/2025 9:45 AM EDT Appointment Maternal Medicine [place] [address] [place] [address] 09/10/2025 11:00 AM EDT Telemedicine Maternal Medicine [place] [address] [facility] 4 [place] [address] Quynh Clements MD [address], [address] [place] [address] documented as of this encounter Procedures Procedure [...] ORDERABLES Jayla l Result Performing Organization Address City/[facility]/ZIP Co de Phone Number MANUALLY TRANSCRIBED RESULTS [...] ORDERABLES Jayla l Result Performing Organization Address [facility] de Phone Number MANUALLY TRANSCRIBED RESULTS * 2nd hr Glucose Tolerance 100 gm load (08/15/2025) Glucose Tolerance Test 2 Hour 169 MANUALLY TRANSCRIBED RESULTS Blood Venous blood / Unknown us Not In System Ref Prov LAB BLOOD ORDERABLES Jayla l Result Performing Organization Address [facility] de Phone Number MANUALLY TRANSCRIBED RESULTS * Glucose 1h post 50g load (08/12/2025) Glucose, 1 hr PP 50GM dose 155 MANUALLY TRANSCRIBED RESULTS Blood Venous blood / Unknown us Not In System Ref Prov LAB BLOOD ORDERABLES Jayla l Result Performing Organization Address [facility] de Phone Number MANUALLY TRANSCRIBED RESULTS documented in this encounter Visit Diagnoses Not on filedocumented in this encounter Care Teams Child Caregiver Relationship Specialty Start Date End Date Cruz Rodríguez MD [address] [place] [address] PCP - General Family Medicine 12/02/18 documented as of this encounter
--- OUTSIDE RECORDS SUMMARY | 2025-08-27 16:42 | XMS_ITS | Clinical Summary ---
Author Organization [employer] Address [facility] [id number] [address] [place] [address] Care Team Providers Care Political Director Name Role Phone Cruz Rodríguez MD Primary Care Provider [phone] Allergies No known active allergies Medications rizatriptan CLIENT RENEWAL SPECIALIST (MAXALT-CLIENT RENEWAL SPECIALIST) 5 mg disintegrating tablet Dissolve 1 tablet [...] PM EDT Support Visit Maternal- Medicine at [facility] [address] [place] [address] Teena Sarmiento, RN Kerline Steiner, RD Gestational diabetes mellitus (GDM) in second trimester, gestational diabetes method of control unspecified 08/23/2025 Travel 08/22/2025 Travel 08/21/2025 Abstract Maternal- Medicine at [facility] [address] [place] [address] External, Scanning Provider 08/19/2025 Orders Only Maternal- Medicine at [facility] [address] [place] [address] Ref Prov, Not In System 08/18/2025 Abstract Maternal- Medicine at [facility] [address] [address] Quynh Clements MD 08/18/2025 Orders Only Maternal- Medicine at [address] [phone] Khalida Garrett RN History of pre-eclampsia in [...] 09/10/2025 9:45 AM EDT Appointment [facility] [place] [address] [facility] [address] [place] [address] 09/10/2025 11:00 AM EDT Telemedicine [facility] [place] [address] [facility] [address] [place] [phone] Quynh Clements MD [address] [facility], [address] [place] [id number] Health Maintenance Due Date Last Done Comments Depression Screening 2007 Tobacco Screening 2007 DTaP,Tdap and Td Vaccines (7 - Td or Tdap) 2024 2014, 05/03/2000, 12/29/1997, Additional history exists Influenza Vaccine 07/27/2025 09/11/2014 Adult BMI Screening 08/24/2026 08/24/2025 Pap Smear 08/18/2027 08/18/2024 Medical Devices Not [...] ORDERABLES Jayla l Result Performing Organization Address [facility] de Phone Number MANUALLY TRANSCRIBED RESULTS * Glucose tolerance, 1 hour (08/15/2025) Glucose Tolerance Test 1 Hour 152 MANUALLY TRANSCRIBED RESULTS Blood Venous blood / Unknown us Not In System Ref Prov LAB BLOOD ORDERABLES Jayla l Result Performing Organization Address [facility] de Phone Number MANUALLY TRANSCRIBED RESULTS * Glucose tolerance, 3 hours (08/15/2025) Glucose Tolerance Test 3 Hour 141 MANUALLY TRANSCRIBED RESULTS Blood Venous blood / Unknown us Not In System Ref Prov LAB BLOOD ORDERABLES Jayla l Result Performing Organization Address [facility] Phone Number MANUALLY TRANSCRIBED RESULTS * Glucose, tolerance fasting (08/15/2025) Glucose Tolerance Test Fasting 82 MANUALLY TRANSCRIBED RESULTS Blood Venous blood / Unknown us Not In System Ref Prov LAB BLOOD ORDERABLES Jayla l Result Performing Organization Address [facility] Phone Number MANUALLY TRANSCRIBED RESULTS * Ultrasound [...] ORDERABLES Jayla l Result Performing Organization Address [facility]/ZIP Co de Phone Number MANUALLY TRANSCRIBED RESULTS * AFP Single Marker Scrn, Maternal, Serum (07/15/2025 10:17 AM EDT) Blood Venous blood / Unknown us Not In System Ref Prov LAB BLOOD ORDERABLES Jayla l Result MANUALLY TRANSCRIBED RESULTS * Unlisted Lab Test (07/04/2025 11:17 AM EDT) us Not In System Ref Prov LAB BLOOD ORDERABLES Jayla l Result MANUALLY TRANSCRIBED RESULTS from Last 3 Months Insurance [employer] Care Teams Political Director Relationship Specialty Start Date End Date Cruz Rodríguez MD [address] [place] [address] PCP - General Family Medicine 12/02/18
[2025-08-27 17:05] LABS: Hematocrit 34.4 % (36.0-48.0); Hemoglobin 11.3 g/dL (12.0-16.0); Immature Granulocytes Abs Auto 0.59 10^3/uL (0.00-0.03); Immature Granulocytes Pct Auto 4.4 % (0.0-0.5); Lymphocytes Absolute Auto 2.4 10^3/uL (1.2-3.8); Mean Corpuscular HGB Conc 32.8 g/dL (29.9-35.2); Mean Corpuscular Hemoglobin 29.4 pg (26.7-34.0); Mean Corpuscular Volume 89.4 fL (81.0-99.0); Platelet Count 270 10^3/uL (150-450); Red Blood Count 3.85 10^6/uL (4.20-5.40); White Blood Count 13.3 10^3/uL (4.0-11.0)
[2025-08-27 17:17] LABS: Aspartate Amino Transferase 21 U/L (15-37); Blood Urea Nitrogen 9.0 mg/dL (7.0-18.0); Estimated GFR (African America >60 (>=60 mL/min/1.73m^2); Estimated GFR (Non-African Ame >60 (>=60 mL/min/1.73m^2); Uric Acid 3.3 mg/dL (2.6-6.0)
[2025-08-27 17:19] LABS: Partial Thromboplastin Time 25.6 sec (22.3-36.2); Prothrombin Time 9.7 sec (9.0-11.6)
[2025-08-27 17:21] LABS: INR <0.93
[2025-08-27 18:09] LABS: Total Protein Urine Random <6.0 mg/dL (<=11.9)
--- OUTSIDE RECORDS SUMMARY | 2025-08-27 20:02 | XMS_ITS | CCD ---
Author Organization [facility] Care Team Providers Care Manager Business Intelligence Name Role Phone Unavailable Unavailable POCOPAL QUINTEROS Referring Unavailable CRUZ RODRÍGUEZ Primary Care Unavailable OPAL LARA Referring Unavailable CRUZ RODRÍGUEZ Primary Care Unavailable CRUZ RODRÍGUEZ Primary Care Physician Domo Hodges Unavailable TONIA DIALLO Attending Unavailable RITU RYDER Admitting Unavailable RITU RYDER Attending Unavailable Cruz Rodríguez MD Primary Care Provider Cruz Rodríguez MD Unavailable Cruz Rodríguez MD Primary Care Provider [phone] Cruz Rodríguez MD Unavailable Kita [facility] [place] Unavailable Keesha [facility], Trista R Unavailable [phone] Cruz Rodríguez MD Primary Care Provider CHARLENE RODRIGUEZ Referring Unavailable RODRÍGUEZ, CRUZ SAHIL Primary Care Unavailable CHARLENE RODRIGUEZ Attending Unavailable RODRÍGUEZ, CRUZ SAHIL Referring Unavailable RODRÍGUEZ, CRUZ SAHIL Primary Care Unavailable CHARLENE RODRIGUEZ Attending Unavailable RODRÍGUEZ, CRUZ SAHIL Primary Care Unavailable RODRÍGUEZ, CRUZ SAHIL Primary Care Unavailable CHARLENE RODRIGUEZ Attending Unavailable REAPER, SRINIVASA Referring Unavailable REAPER, SRINIVASA Attending Unavailable RODRÍGUEZ, CRUZ SAHIL Primary Care Unavailable RODRÍGUEZ, CRUZ SAHIL Primary Care Unavailable REAPER, SRINIVASA Attending Unavailable Unavailable Primary Care Provider Unavailabl e Nay Beltran DO Primary Care Provider NAY MALONEY Primary Care Physician Unavailab Cruz Ross MD Primary Care Provider Kiesha DO, Nathan Attending Provider [phone] Keisha, Nathan Admitting Unavailable Kiesha, Nathan Attending Unavailable Cruz Rodríguez Primary Care Unavailable KIESHA, Nathan R Attending Unavailable KIESHA, Nathan R Referring Unavailable KIESHA, Nathan R Admitting Unavailable KIESHA, Nathan R Attending Unavailable KIESHA, Nathan R Admitting Unavailable Kaftan DO, Nay R Unavailable [phone] Yomaira BELTRAN Attending Unavailable KAFTAN, G KENNETH Admitting Unavailable KIESHA, Nathan R Attending Unavailable KIESHA, Nathan R Admitting Unavailable KIESHA, Nathan R Admitting Unavailable KIESHA, Nathan R Attending Unavailable KAFTAN, G KENNETH Admitting Unavailable KAFTAN, Yomaira COOPER Attending Unavailable KAFTAN, Yomaira COOPER Admitting Unavailable KAFTAN, Yomaira COOPER Attending Unavailable KAFTAN, NAY Hurtado Attending Unavailable KIESHA, NATHAN Attending Unavailable KIESHA, NATHAN Attending Unavailable KIESHA, NATHAN Attending Unavailable KIESHA, NATHAN Attending Unavailable KIESHA, NATHAN Attending Unavailable KAFTAN, NAY Hurtado Attending Unavailable KIESHA, NATHAN Attending Unavailable MARBELLA KEANE Attending Unavailable MARBELLA KEANE Admitting Unavailable Cruz Rodríguez MD Primary Care Provider MARBELLA KEANE Attending Unavailable MARBELLA KEANE Admitting Unavailable KAFTJIMMY, Yomaira COOPER Attending Unavailable KAFTJIMMY, Yomaira COOPER Admitting Unavailable KIESHA, Nathan R Consulting Unavailable KIESHA, DO Nathan R Consulting Unavailable KIESHA, Nathan R Consulting Unavailable KIESHA, Nathan R Attending Unavailable KIESHA, Nathan R Admitting Unavailable Allergies Allergy Classification Reported Allergen(s) Allergy Type Date of Onset Reaction(s) Facility (4 sources) No Known Medication Allergies; Translations: [No Known Medication Allergies] Propensity to adverse reactions (disorder) [facility] Repository Medications Current Medications Medication Drug Class(es) Dates Sig (Normalized) Sig (Original) acetaminophen 325 mg / butalbital 50 mg / caffeine 40 mg oral tablet (14 sources) Barbiturate, Central Nervous System Stimulant, Methylxanthine Start: 02-19-2024 End: 05-01-2025 take 1 tablet by mouth every six hours for headache butalbital-acetam inophen-caffeine 50-325-40 MG tablet Indications: Other migraine without status migrainosus, not intractable Take 1 tablet by mouth every 6 (six) hours if needed for headaches 20 tablet 02/19/2024 05/01/2025 Discontinued ascorbic acid 500 mg oral tablet (2 sources) Vitamin C Start: 10-25-2018 take 2 tablets by mouth in the morning ASCORBIC ACID WITH ISAURO HIPS 500 MG tablet Take 2 tablets (1,000 mg total) by mouth in the morning. 0 10/25/2018 Active aspirin 325 mg / butalbital 50 mg / caffeine 40 mg oral capsule (2 sources) Platelet Aggregation Inhibitor, Barbiturate, Nonsteroidal Anti-inflammatory Drug, Central Nervous System Stimulant, Methylxanthine take 1 capsule by mouth every four hours as needed for headache butalbital-aspiri n-caffeine (FIORINAL) 50-325-40 mg per capsule Take 1 capsule by mouth every 4 (four) hours as needed for headaches. Active atenolol 25 mg oral tablet (4 [...] capsule Discontinued 500 MG PO Q12H 14 March 14, 2019 12:00am August 04, 2019 8:18am cholecalciferol 0.125 mg oral capsule (2 sources) Vitamin D Start: 10-25-2018 take 1 capsule by mouth in the morning cholecalciferol, vitamin D3, (VITAMIN D3) 5,000 units capsule Take 1 capsule (5,000 Units total) by mouth in the morning. 0 10/25/2018 Active cyclobenzaprine hydrochloride 5 mg oral tablet (20 [...] spasm, # 30 tab(s), Refills(s) 0, Pharmacy: [facility] 858, 157, cm, 01/23/22 7:20:00 EST, Height/Length [...] daily. 90 tablet 0 01/10/2024 04/09/2024 Active Ethinyl Estradiol / Norethindrone (4 sources) Estrogen Start: 12-01-2018 take 0.05 ug by mouth once in the evening norethindrone ac-eth estradiol (MICROGESTIN 12/15) 1-20 mg-mcg per tablet Take 1 tablet by mouth in the evening. 0 12/01/2018 Active Start: 11-23-2016 take 1 tablet by ghada th once daily Chris oral tablet 1 tab(s), Oral, Daily, Refill(s) 0, control/menstrual regulation Start Date: 11/23/16 Status: Ordered ethinyl estradiol 0.035 mg / norgestimate 0.25 mg oral tablet (4 sources) Progestin, Estrogen Start: 01-15-2023 norgestimate-ethinyl estradiol (Ortho-Cyclen) 0.25-35 MG-MCG tablet 1 (one) time each day at the same time. 0 01/15/2023 Active Start: 08-04-2019 take 1 tablet by ghada th once daily Norgestimate-Ethinyl Estradiol 0.25-35 mg-mcg tablet Active 1 TAB PO Daily August 04, 2019 12:00am [place] 0.25 -35 MG-MCG Oral for 28 Not-Taking [...] in the MR contrast administration guidelines link. labetalol hydrochloride 100 mg oral tablet (10 sources) beta-Adrenergic Negro Start: 07-30-2025 End: 07-30-2026 take 1 tablet by mouth in the morning labetalol (Normodyne) 100 MG tablet Indications: Hypertension, unspecified type Take 1 tablet (100 mg) by mouth in the morning and 1 tablet (100 mg) before bedtime. 60 tablet 5 07/30/2025 07/30/2026 Active Start: 11-28-2022 End: 11-28-2022 labetalol (Normodyne,Trandat e) injection 20 mg Start: 11-28-2022 End: 11-28-2022 labetalol (Normodyne,Trandat e) injection 20 mg Start: 11-28-2022 End: 11-28-2022 labetalol (Normodyne,Trandat e) 5 MG/ML injection - Pyxis ADS Override Pull magnesium oxide 400 mg oral tablet (6 sources) Start: 05-01-2025 End: 05-31-2025 take 1 tablet by mouth once daily magnesium oxide (Mag-Ox) 400 MG tablet Indications: headache in first trimester ([facility]HS-HCC) Take 1 tablet (400 mg) by mouth Daily 30 tablet 3 05/01/2025 05/31/2025 Active meloxicam 15 mg oral tablet (12 sources) Nonsteroidal Anti-inflammatory Drug Start: 02-02-2021 End: 12-30-2025 take 1 tablet by mouth once daily meloxicam (Mobic) 15 MG tablet Indications: Chronic right shoulder pain , Scapular dyskinesis Take 1 tablet (15 mg) by mouth Daily 30 tablet 3 12/30/2024 05/01/2025 Discontinued 24 hr metoprolol succinate 25 mg extended release oral tablet (20 sources) beta-Adrenergic Negro Start: 10-15-2024 End: 12-30-2024 take 1 tablet by mouth once daily metoprolol succinate XL (Toprol-XL) 25 MG 24 hr tablet Indications: Hypertension, unspecified type Take 1 tablet by mouth [...] Dihydropyridine Calcium Channel Negro Start: 023 End: NIFEdipine XL (Procardia XL) 30 MG 24 hr tablet Take 1 tablet (30 mg) by mouth daily. Do not crush, chew, or split. Do not start before December 02, 2022. 90 tablet 0 12/02/2022 12/02/2023 Active norethindrone acetate 5 mg oral tablet (20 sources) Start: End: take 2 tablets by mouth once daily [...] once daily. Take 2 tablets by mo [facility] once daily. PNV no.95-ferrous fumarate-FA () 28 mg iron- 800 mcg tablet (2 sources) take 1 tablet by mouth in the morning PNV no.95-ferrous fumarate-FA () 28 mg iron- 800 mcg tablet Take 1 tablet by mouth in the morning. Active pramoxine hydrochloride 10 mg/ml rectal foam (2 sources) Start: 2 End: 2 take 15 g rectal route twice daily ProctoFoam 1% Foam apply, Rectal, BID for 7 day(s), 15 gm, Refill(s) 0 Start Date: 07/14/22 Stop Date: 07/21/22 Status: Ordered Multivitamins with Vitamin B Complex, Vitamin C, Minerals and L-Methylfolate oral capsule (9 sources) Start: Multivitamins with Vitamin B Complex, Vitamin C, [...] MG tablet Take by mouth. 0 Active Vit-Fe Fumarate-FA ( Vitamins) 28-0.8 MG tablet (17 sources) Start: 05-01-2025 End: 05-01-2026 take 1 tablet by mouth once daily Vit-Fe Fumarate-FA ( Vitamins) 28-0.8 MG tablet Indications: , unspecified gestational age ([facility]) , Encounter for supervision of normal first in first trimester ([facility]) Take 1 tablet by mouth Daily 30 tablet 05/01/2025 05/01/2026 Active Start: 05-01-2025 End: 05-01-2026 take 1 tablet by mouth once daily Vit-Fe Fumarate-FA ( Vitamins) 28-0.8 MG tablet Indications: , unspecified gestational age , Encounter for supervision of normal first in first trimester Take 1 tablet by mouth Daily 30 tablet 05/01/2025 05/01/2026 Active rizatriptan 5 mg disintegrating oral tablet (2 sources) Serotonin-1b and Serotonin-1d Receptor Agonist Start: 10-24-2018 rizatriptan LANDSCAPER (MAXALT-LANDSCAPER) 5 mg disintegrating tablet Dissolve 1 tablet (5 mg total) on tongue as needed. 0 10/24/2018 Active SUMAtriptan 100 mg oral tablet (10 [...] oral tablet (10 sources) Opioid Agonist Start: 08-30-2023 take 1 [...] PO Q4H as needed for pain 30 March 12, 2019 12:00am August 04, 2019 8:19am Comment on above: Take 1 tablet by ghada th every 4 hours as needed for pain. vitamin b12 1 mg extended release oral tablet (2 sources) Vitamin B12 Start: 10-25-2018 take 1 tablet by mouth in the morning cyanocobalamin, vitamin B-12, (VITAMIN B-12) 1,000 mcg tablet extended release Take 1 tablet (1 mg total) by mouth in the morning. 0 10/25/2018 Active Vitamin D2 2000 intl units oral capsule [...] Continuous, Starting on Sun11/28/22 at 0100, Pre-Delivery cetirizine hydrochloride 10 mg oral tablet (8 sources) Histamine-1 Receptor Antagonist Start: 06-09-2025 End: 06-09-2026 take 1 tablet by mouth once daily cetirizine (ZyrTEC ALLERGY) 10 MG tablet Indications: Allergy, sequela Take 1 tablet (10 mg) by mouth Daily 30 tablet 06/09/2025 07/15/2025 Discontinued chlordiazePOXIDE hydrochloride 5 mg / clidinium bromide [...] 2 times daily PRN, heartburn, Starting on Sun11/30/22 at 0608, Renal dose per pharmacy for peptic ulcer prophylaxis. ferrous sulfate 325 mg oral tablet (2 sources) Start: 11-30-2022 End: 12-02-2022 take 325 mg by mouth twice daily at mealtime 325 mg, Oral, 2 times daily with meals, First dose on Sun11/30/22 at 0800, Start if Hgb less than [...] 04, 2019 8:19am take 1 capsule by [facility] once daily FLUoxetine (PROZAC) 10 mg capsule Take 10 mg by mouth once daily. 0 Active Comment on above: Take 10 mg by mouth once daily. fluticasone propionate 0.05 mg/actuat metered dose nasal spray (7 sources) Corticosteroid Start: 5 End: 6 take 1 spray(s) nasal route once daily fluticasone (Flonase) 50 MCG/ACT nasal spray Indications: Sinusitis, unspecified chronicity, unspecified location Administer 1 spray into each nostril Daily Shake gently. Before first use, prime pump. After use, clean tip and replace cap. 16 g 12 06/22/2025 07/15/2025 Discontinued take 1 spray(s) nasa l route in the morning fluticasone propionate (FLONASE) 50 mcg/actuation nasal spray Administer 1 spray into each nostril in the morning. Active lanolin 1000 mg/ml topical cream (2 sources) [...] days, # 9 tab(s), Refills(s) 0, Pharmacy: [facility] 858, 157, cm, 03/04/21 7:22:00 EDT, [...] 2019 8:18am administer with food or milk promethazine hydrochloride 12.5 mg oral tablet (10 sources) Phenothiazine Start: 05-25-2025 End: 07-15-2025 take 1 tablet by mouth every six hours as needed for nausea and vomiting and headache and headache promethazine (Phenergan) 12.5 MG tablet Indications: Nonintractable episodic headache, unspecified headache type Take 1 tablet (12.5 mg) by mouth every 6 (six) hours if needed for nausea or vomiting for up to 30 doses Take 1 tablet by mouth every 6 hours as needed for nausea. 30 tablet 2 05/25/2025 07/15/2025 Discontinued take 12.5 mg rectal route every six hours as needed for nausea and vomiting promethazine (PHENERGAN) 12.5 mg suppository Insert 1 suppository (12.5 mg total) into the rectum every 6 (six) hours as needed for nausea or vomiting. Active 5 ml sodium chloride 9 mg/ml injection (2 sources) Start: 11-28-2022 End: 11-30-2022 10 mL, IntraVENous, Every 12 hours scheduled (2 times per day), First dose on Sun11/28/22 at 0900, Pre-Delivery witch yesi 500 mg/ml medicated pad (2 sources) Start: 11-30-2022 End: 12-02-2022 Topical, As needed, hemorrho ids, For perineal pain or discomfort, Starting on Sun11/30/22 at 0608, Apply to perineal area. Patient is capable and may self administer at bedside. Problems Active Problems Problem Classification Problem Date Documented Da te Episodic/Chronic Allergic reactions (1 source) Allergic reaction; Translations: [Allergy, unspecified, initial encounter] 11-07-2023 Episodic Comment on above: Problem List clean-u p per request of Phys. EHR Cmte Anxiety disorders (20 sources) Anxiety; Translations: [Anxiety state, unspecified] Onset: 10-08-2020 10-08-2020 Chronic Comment on above: Problem List clean-u p per request of Phys. EHR Cmte Cardiac dysrhythmias (20 sources) Paroxysmal tachycardia; Translations: [Paroxysmal tachycardia, unspecified] Onset: 03-29-2023 03-29-2023 Chronic Complications of surgical procedures or medical care (1 source) Postoperative retention of urine; Translations: [Other postprocedural complications and disorders of genitourinary system] 11-07-2023 Episodic Comment on above: Problem List clean-u p [facility] Diabetes mellitus without complication (2 sources) Abnormal glucose tolerance test; Translations: [Other abnormal glucose] 08-12-2025 Episodic Diabetes or abnormal glucose tolerance complicating ; childbirth; or the puerperium (1 source) Gestational diabetes mellitus; Translations: [Gestational diabetes mellitus in , diet controlled] Onset: 08-21-2025 08-21-2025 Episodic Endometriosis (20 sources) Endometriosis (clinical); Translations: [Endometriosis, [...] of Phys. EHR Cmte Headache; including migraine (14 sources) Headache; Translations: [Headache, unspecified] Onset: 01-31-2023 02-14-2021 Episodic Hemorrhoids (1 source) Hemorrhoids; Translations: [Unspecified hemorrhoids] Onset: 07-14-2022 Episodic Hypertension complicating ; childbirth and the puerperium (12 sources) Severe pre-eclampsia complicating childbirth; Translations: [Severe pre-eclampsia, third trimester] Onset: 11-28-2022 Episodic Joint disorders and dislocations; trauma-related (20 sources) Disorder of left patellofemoral joint; Translations: [Patellofemoral disorders, left knee] Onset: 03-29-2023 03-29-2023 Chronic Joint disorders and dislocations; trauma-related (20 sources) Disorder of right patellofemoral joint; Translations: [...] request of Phys. EHR Cmte Nutritional deficiencies (20 sources) Vitamin D deficiency; Translations: [Vitamin D deficiency, unspecified] Onset: 03-29-2023 03-29-2023 Chronic Other acquired deformities (20 sources) Scoliosis deformity of spine; Translations: [Scoliosis, [...] specified dyspareunia] Chronic Other female genital disorders (20 sources) Pain in female genitalia on intercourse; [...] Other hereditary and degenerative nervous system conditions (20 sources) Finding of scapular structure; Translations: [Other [...] Cmte Other nutritional; endocrine; and metabolic disorders (20 sources) Body mass index 30+ - obesity; Translations: [Obesity, unspecified] Onset: 02-19-2024 02-19-2024 Chronic Other and delivery including normal (10 sources) ; Translations: [Encounter for supervision of normal , unspecified, unspecified trimester] 05-01-2025 Episodic Other screening for suspected conditions (not mental disorders or infectious disease) (8 sources) Elevated liver enzymes level; Translations: [Other specified abnormal findings of blood chemistry] Onset: 04-18-2022 Resolved: 04-18-2022 Episodic Other upper respiratory disease (20 sources) Allergic rhinitis due to pollen; Translations: [Allergic rhinitis due to pollen] Onset: 03-29-2023 03-29-2023 Chronic Other upper respiratory infections (2 sources) Sinusitis; Translations: [Chronic sinusitis, unspecified] 06-22-2025 Chronic Residual codes; unclassified (2 sources) Contraception ; Translations: [Other specified health status] 01-10-2024 Episodic Residual codes; unclassified (2 sources) Gestation period, 13 weeks; Translations: [13 weeks gestation of ] 05-25-2025 Episodic Residual codes; unclassified (2 sources) Gestation period, 17 weeks; Translations: [17 weeks gestation of ] 06-22-2025 Episodic Residual codes; unclassified (2 sources) Gestation period, 20 weeks; Translations: [20 weeks gestation of ] 07-15-2025 Episodic Residual codes; unclassified (2 sources) Gestation period, 24 weeks; Translations: [24 weeks gestation of ] 08-12-2025 Episodic Spondylosis; intervertebral disc disorders; other back problems (20 sources) 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; [...] pain] Onset: 07-14-2022 Episodic Acquired foot deformities (20 sources) Acquired equinus deformity of foot; Translations: [Other acquired deformities of unspecified foot] Onset: 03-29-2023 03-29-2023 Episodic Cardiac dysrhythmias (20 sources) Tachycardia; Translations: [Tachycardia, unspecified] Onset: 02-19-2024 02-19-2024 Episodic Nutritional deficiencies (20 sources) Cobalamin deficiency; Translations: [Deficiency of other specified B group vitamins] Onset: 03-29-2023 03-29-2023 Episodic Other connective tissue disease (20 sources) Posterior calcaneal exostosis; Translations: [Calcaneal spur, unspecified foot] Onset: 03-29-2023 03-29-2023 Episodic Other disorders of stomach and duodenum (20 sources) Gastroparesis syndrome; Translations: [Gastroparesis] Onset: 03-29-2023 03-29-2023 Episodic Other female genital disorders (1 source) Other specified conditions associated with female genital organs and menstrual cycle; Translations: [High-tone pelvic floor dysfunction] Onset: 08-24-2023 Episodic Other gastrointestinal disorders (20 sources) Swallowing painful; Translations: [Dysphagia, unspecified] Onset: 03-29-2023 03-29-2023 Episodic Other gastrointestinal disorders (18 sources) Diarrhea; Translations: [Diarrhea, unspecified] Onset: 03-24-2025 03-24-2025 Episodic Other non-traumatic joint disorders (20 sources) Chronic pain of right upper limb; Translations: [Pain in right shoulder] Onset: 03-29-2023 12-30-2024 Episodic Other nutritional; endocrine; and metabolic disorders (16 sources) Loss of appetite; Translations: [Anorexia] Onset: 05-27-2020 10-08-2020 Episodic Syncope (15 sources) Vasovagal syncope; Translations: [Syncope and collapse] Onset: 12-08-2014 12-08-2014 Episodic Unclassified (9 sources) Onset: 07-14-2022 Resolved: 03-26-2023 07-14-2022 NEGATED: Highlighted row has been ruled out!Unclassified (1 source) No known active problems 12-11-2018 Results Test Name Value Interpretation Reference Range Facility 2nd hr Glucose Tolerance 100 gm loadon 08-15-2025 Glucose Tolerance Test 2 Hour 169 [facility] Capillary Glucose POCon 07-28 Glucose [Mass/Vol] 88 mg/dL Normal 55-99 [facility] Comment on above: Performed By: #### 2 [id number] #### [facility] [address] [place] [address] Glu 1 Hron 08-15-2025 Glucose [Mass/Vol] 152 mg/dL Normal 55-180 [facility] Comment on above: Performed By: #### 2 [id number] #### [facility] [address] [place] [address] Glu 2 Hron 08-15-2025 Glucose [Mass/Vol] 169 mg/dL High 55-155 [facility] Comment on above: Performed By: #### 2 [id number] #### [facility] [address] [place] [address] Glu 3 Hron 08-15-2025 Glucose [Mass/Vol] 141 mg/dL High 55-140 [facility] Comment on above: Performed By: #### 2 [id number] #### [facility] [address] [place] [address] Glu Fastingon 08-15-2025 Glucose [Mass/Vol] 82 mg/dL Normal 55-99 [facility] Comment on above: Performed By: #### 2 [id number] #### [facility] [address] [place] [address] Glucose tolerance, 1 houron 08-15-2025 Glucose Tolerance Test 1 Hour 152 [facility] Gl[facility] tolerance, 3 hourson 08-15-2025 Glucose Tolerance Test 3 Hour 141 [facility] Glucose, tolerance fastingon 08-15-2025 Glucose Tolerance Test Fasting 82 [facility] No Panel Informationon 08-15 [facility] CBC w/ Auto Diffon 5 Basophil Absolute 0.1 E9/L Normal 0.0-0.2 [facility] Comment on above: Performed By: #### 2 [id number] #### [facility] [address] [place] [address] Basophils/100 WBC (Bld) 0.6 % Normal 0.0-2.0 [facility] Comment on above: Performed By: #### 2 [id number] #### [facility] [address] [place] [address] Eos Absolute 0.1 E9/L Normal 0.0-0.5 [facility] Comment on above: Performed By: #### 2 [id number] #### [facility] [address] [place] [address] Eosinophils/100 WBC (Bld) 1.0 % Normal 0.0-8.0 [facility] Comment on above: Performed By: #### 2 [id number] #### [facility] [address] [place] [address] Erythrocyte distribution width (RBC) [Ratio] 12.9 % Normal 10.9-14.2 [facility] Comment on above: Performed By: #### 2 [id number] #### [facility] [address] [place] [address] Hematocrit (Bld) [Volume fraction] 33.1 % Low 34.0-46.0 [facility] Comment on above: Performed By: #### 2 [id number] #### [facility] [address] [place] [address] Hemoglobin (Bld) [Mass/Vol] 11.4 g/dL Low 12.0-16.0 [facility] Comment on above: Performed By: #### 2 [id number] #### [facility] [address] [place] [address] Lymph Absolute 2.0 E9/L Normal 1.0-4.0 [facility] Comment on above: Performed By: #### 2 [id number] #### [facility] [address] [place] [address] Lymphocytes/100 WBC (Bld) 19.6 % Normal 14.0-50.0 [facility] Comment on above: Performed By: #### 2 [id number] #### [facility] [address] [place] [address] MCH (RBC) [Entitic mass] 29.9 pg Normal 27.0-34.0 [facility] Comment on above: Performed By: #### 2 [id number] #### [facility] [address] [place] [address] MCHC (RBC) [Mass/Vol] 34.4 g/dL Normal 31.4-36.0 [facility] Comment on above: Performed By: #### 2 [id number] #### [facility] [address] [place] [address] MCV (RBC) [Entitic vol] 86.7 fL Normal 80.0-100.0 [facility] Comment on above: Performed By: #### 2 [id number] #### [facility] [address] [place] [address] [place] Absolute 0.5 E9/L Normal 0.2-1.0 [facility] Comment on above: Performed By: #### 2 [id number] #### [facility] [address] [place] [address] Monocytes/100 WBC (Bld) 4.6 % Normal 4.0-14.0 [facility] Comment on above: Performed By: #### 2 [id number] #### [facility] [address] [place] [address] Neutro Absolute 7.5 E9/L Normal 2.0-7.5 [facility] Comment on above: Performed By: #### 2 [id number] #### [facility] [address] [place] [address] Neutro Auto 74.2 % Normal 36.0-75.0 [facility] Comment on above: Performed By: #### 2 [id number] #### [facility] [address] [place] [address] Platelet 294.0 E9/L Normal 150.0-500.0 [facility] Comment on above: Performed By: #### 2 [id number] #### [facility] [address] [place] [address] Platelet mean volume (Bld) [Entitic vol] 8.1 fL Normal 6.4-10.8 [facility] Comment on above: Performed By: #### 2 [id number] #### [facility] [address] [place] [address] RBC 3.8 E12/L Low 4.3-5.9 [facility] Comment on above: Performed By: #### 2 [id number] #### [facility] [address] [place] [address] WBC 10.1 E9/L Normal 4.0-11.0 [facility] Comment on above: Performed By: #### 2 [id number] #### [facility] [address] [place] [address] Ferritinon 08-12-2025 Ferritin Lvl 7 ng/mL Low 11-307 [facility] Comment on above: Performed By: #### 2 [id number] #### [facility] [address] [place] [address] Folateon 08-12-2025 Folate Lvl >22.3 Normal >=6.7 [facility] Comment on above: Performed By: #### 2 [id number] #### [facility] [address] [place] [address] Gest Scr Glu 1 Hron 08-12-20 25 Glucose [Mass/Vol] 155 mg/dL High 55-140 [facility] Comment on above: Performed By: #### 3 [id number] #### [facility] [address] [place] [address] Glucose 1h post 50g loadon 0 08-12-2025 Glucose, 1 hr PP 50GM dose 155 [facility] Ironon 08-12-2025 Iron 55 microgram/dL Normal 35-153 [facility] Comment on above: Performed By: #### 2 [id number] #### [facility] [address] [place] [address] No Panel Informationon 08-12 [facility] TIBC Calculatedon 08-12-2025 TIBC 637 microgram/dL High 250-400 [facility] Comment on above: Performed By: #### 1 [id number] #### [facility] [address] [place] [address] Transferrin [Mass/Vol] 455 mg/dL High 200-370 [facility] Comment on above: Performed By: #### 1 [id number] #### [facility] [address] [place] [address] US OB LIMITED 1+ FETUSESon 0 08-12-2025 US OB LIMITED 1+ FETUSES FINDINGS: Single viable intrauterine with cephalic presentation and antegrade cardiac and activity, 144 bpm. Appropriate adequate visualization of the LVOT, RVOT and four-chamber view seen currently. Gestational age of 24 weeks, 4 days with a estimated delivery date of November 28, 2025. IMPRESSION: Appropriate cardiac and outflow tract anatomy, appropriate for this age. TRANSCRIBED BY: ELECTRONICALLY SIGNED BY: Junito Alas MD Normal Not Available Comment on above: Order Comment: US OB INCOMPLETE ANATOMY Estimated Date of Delivery: 11/28/25 Gestational Age as of 07/21/2025: 21w3d Urinalysis macro (dipstick) panel (U)on 08-12-2025 Bilirubin, UA Negative Negative - 4(70) +++ mg/dL [facility] Blood, UA Negative Negative - 50 Teodoro/mcL [facility] Clarity, UA Clear [facility] Color, UA Yellow [facility] Glucose, UA Negative Negative - 2000(110) ++++ mg/dL [facility] Interpretation and review of laboratory results Abnormal [facility] Ketones, UA Negative Negative - 160(16) ++++ mg/dL [facility] Leukocytes, UA Negative Negative - 500+++ Robinson/mcL [facility] Nitrite, UA Negative Negative - Positive [facility] pH, UA 6 5 - 9 [facility] Protein, UA Negative Negative - 2000(20) ++++ mg/dL [facility] Spec Grav, UA 1.01 1 - 1.03 [facility] Urobilinogen, UA 1.0 0.2 - 12 mg/dL [facility] Vit B12on 08-12-2025 Cobalamin (Vitamin B12) [Mass/Vol] 205 pg/mL Normal 50-1500 [facility] Comment on above: Performed By: #### 2 [id number] #### [facility] [address] [place] [address] CBC w/ Auto Diffon 5 Basophil Absolute 0.0 E9/L Normal 0.0-0.2 [facility] Comment on above: Performed By: #### 2 [id number] #### [facility] [address] [place] [address] Basophils/100 WBC (Bld) 0.2 % Normal 0.0-2.0 [facility] Comment on above: Performed By: #### 2 [id number] #### [facility] [address] [place] [address] Eos Absolute 0.1 E9/L Normal 0.0-0.5 [facility] Comment on above: Performed By: #### 2 [id number] #### [facility] [address] [place] [address] Eosinophils/100 WBC (Bld) 0.5 % Normal 0.0-8.0 [facility] Comment on above: Performed By: #### 2 [id number] #### [facility] [address] [place] [address] Erythrocyte distribution width (RBC) [Ratio] 13.0 % Normal 10.9-14.2 [facility] Comment on above: Performed By: #### 2 [id number] #### [facility] [address] [place] [address] Hematocrit (Bld) [Volume fraction] 31.9 % Low 34.0-46.0 [facility] Comment on above: Performed By: #### 2 [id number] #### [facility] [address] [place] [address] Hemoglobin (Bld) [Mass/Vol] 11.1 g/dL Low 12.0-16.0 [facility] Comment on above: Performed By: #### 2 [id number] #### [facility] [address] [place] [address] Lymph Absolute 2.1 E9/L Normal 1.0-4.0 [facility] Comment on above: Performed By: #### 2 055625 #### [facility] [address] [place] [address] Lymphocytes/100 WBC (Bld) 16.2 % Normal 14.0-50.0 [facility] Comment on above: Performed By: #### 2 884574 #### [facility] [address] [place] [address] MCH (RBC) [Entitic mass] 29.9 pg Normal 27.0-34.0 [facility] Comment on above: Performed By: #### 2 406251 #### [facility] [address] [place] [address] MCHC (RBC) [Mass/Vol] 34.8 g/dL Normal 31.4-36.0 [facility] Comment on above: Performed By: #### 2 503679 #### [facility] [address] [place] [address] MCV (RBC) [Entitic vol] 85.7 fL Normal 80.0-100.0 [facility] Comment on above: Performed By: #### 2 916241 #### [facility] [address] [place] [address] [place] Absolute 0.9 E9/L Normal 0.2-1.0 [facility] Comment on above: Performed By: #### 2 585361 #### [facility] [address] [place] [address] Monocytes/100 WBC (Bld) 7.0 % Normal 4.0-14.0 [facility] Comment on above: Performed By: #### 2 442185 #### [facility] [address] [place] [address] Neutro Absolute 9.7 E9/L High 2.0-7.5 [facility] Comment on above: Performed By: #### 2 553761 #### [facility] [address] [place] [address] Neutro Auto 76.1 % High 36.0-75.0 [facility] Comment on above: Performed By: #### 2 147430 #### [facility] [address] [place] [address] Platelet 307.0 E9/L Normal 150.0-500.0 [facility] Comment on above: Performed By: #### 2 195599 #### [facility] [address] [place] [address] Platelet mean volume (Bld) [Entitic vol] 8.0 fL Normal 6.4-10.8 [facility] Comment on above: Performed By: #### 2 [id number] #### [facility] [address] [place] [address] RBC 3.7 E12/L Low 4.3-5.9 [facility] Comment on above: Performed By: #### 2 722254 #### [facility] [address] [place] [address] WBC 12.8 E9/L High 4.0-11.0 [facility] Comment on above: Performed By: #### 2 170194 #### [facility] [address] [place] [address] CMPon 08-01-2025 CO2 [Moles/Vol] 20 mmol/L Low 21-31 [facility] Comment on above: Performed By: #### 2 067495 #### [facility] [address] [place] [address] Anion gap [Moles/Vol] 16 mmol/L Normal 6-16 [facility] Comment on above: Performed By: #### 2 [id number] #### [facility] [address] [place] [address] Albumin [Mass/Vol] 3.8 g/dL Normal 3.3-5.0 [facility] Comment on above: Performed By: #### 2 868341 #### [facility] [address] [place] [address] Albumin/Globulin [Mass ratio] 1.3 {ratio} Normal 1.1-2.2 [facility] Comment on above: Performed By: #### 2 [id number] #### [facility] [address] [place] [address] Alk Phos 78 Int._Unit/L Normal 21-98 [facility] Comment on above: Performed By: #### 2 [id number] #### [facility] [address] [place] [address] ALT 21 Int._Unit/L Normal 6-46 [facility] Comment on above: Performed By: #### 2 142283 #### [facility] [address] [place] [address] AST 17 Int._Unit/L Normal 5-43 [facility] Comment on above: Performed By: #### 2 273144 #### [facility] [address] [place] [address] Bili Total 0.8 mg/dL Normal 0.0-1.1 [facility] Comment on above: Performed By: #### 2 226796 #### [facility] [address] [place] [address] BUN/Creat Ratio 18 No Units Normal 10-20 [facility] Comment on above: Performed By: #### 2 594904 #### [facility] [address] [place] [address] Calcium [Mass/Vol] 8.9 mg/dL Normal 8.9-11.1 [facility] Comment on above: Performed By: #### 2 842551 #### [facility] [address] [place] [address] Chloride [Moles/Vol] 104 mmol/L Normal 101-111 [facility] Comment on above: Performed By: #### 2 008929 #### [facility] [address] [place] [address] Creatinine [Mass/Vol] 0.6 mg/dL Normal 0.5-1.3 [facility] Comment on above: Performed By: #### 2 603833 #### [facility] [address] [place] [address] Globulin (S) [Mass/Vol] 3.0 g/dL Normal 1.4-4.0 [facility] Comment on above: Performed By: #### 2 233165 #### [facility] [address] [place] [address] Glucose [Mass/Vol] 92 mg/dL Normal 55-199 [facility] Comment on above: Performed By: #### 2 856528 #### [facility] [address] [place] [address] Potassium [Moles/Vol] 3.7 mmol/L Normal 3.5-5.3 [facility] Comment on above: Performed By: #### 2 673079 #### [facility] [address] [place] [address] Protein [Mass/Vol] 6.8 g/dL Normal 6.0-7.8 [facility] Comment on above: Performed By: #### 2 [id number] #### [facility] [address] [place] [address] Sodium [Moles/Vol] 136 mmol/L Normal 135-145 [facility] Comment on above: Performed By: #### 2 549267 #### [facility] [address] [place] [address] Urea nitrogen [Mass/Vol] 11 mg/dL Normal 5-21 [facility] Comment on above: Performed By: #### 2 [id number] #### [facility] [address] [place] [address] Lipid Panelon 08-01-2025 Cholesterol [Mass/Vol] 239 mg/dL High 120-200 [facility] Comment on above: Performed By: #### 2 806248 #### [facility] [address] [place] [address] Cholesterol in HDL [Mass/Vol] 88 mg/dL Invalid Interpretation Code [facility] Comment on above: Result Comment: '>= 60 LOW RISK' '<= 40 HIGH RISK' Performed By: #### 2 [id number] #### [facility] [address] [place] [address] Cholesterol in LDL [Mass/Vol] 144 mg/dL High <=129 [facility] Comment on above: Performed By: #### 2 [id number] #### [facility] [address] [place] [address] Cholesterol in VLDL [Mass/Vol] 40 mg/dL Normal 7-40 [facility] Comment on above: Performed By: #### 2 839336 #### [facility] [address] [place] [address] Triglyceride [Mass/Vol] 202 mg/dL High <=149 [facility] Comment on above: Performed By: #### 2 [id number] #### [facility] [address] [place] [address] eGFRon 08-01-2025 eGFR 123 mL/min/1.73 m2 Normal >=59 [facility] Comment on above: Performed By: #### 1 [id number] #### [facility] [address] [place] [address] AFP, SERUM, OPEN SPINA BIFID Aon 07-18-2025 AFP MOM 0.95 . [facility] AFP VALUE 59.2 ng/mL . [facility] COMMENT: Comment . [facility] Comment on above: Amy Ramos , Ph.D., [facility] Director References: Available Upon Request. Multiples Of Median Cutoffs For AFP Elevations Hsieh 2.5 Black 2.8 IDD 2.0 Twins 4.5 Abbreviation Definitions IDD - Insulin Dep Diabetes OSBR - Open Spina Bifida Risk For further inquiries contact [employer] at [phone]. This test was developed and its performance characteristics determined by [employer]. It has not been cleared or approved by the Food and Drug Administration. Performed at: [facility] [address] [place], [place] [id number] Mat Gauger: Dona Justin [facility], Phone: [phone] GEST. AGE ON COLLECTION DATE 20.6 . weeks [facility] GESTAT. AGE BASED ON LMP . [facility] Comment on above: Recalculations are n ot recommended when gestational dating by LMP and ultrasound are within 10 days. INSULIN DEP DIABETES No . [facility] INTERPRETATION Comment . [facility] Comment on above: Interpretation: Scre en Negative This result is screen negative for [...] Customer Services to discuss available options. [employer] recommends amniocentesis be offered to women age 35 and older. [age] [facility] MULTIPLE GESTATION No . [facility] OSBR RISK 1 [place] [address] . [facility] RACE . [facility] RESULTS Report . [facility] TEST RESULTS: Negative . [facility] WEIGHT 146 . lbs [facility] N N LMP [id number] 2 17 N 1 Y 146 N N N N N White/ [facility] US OB 14+ WEEKS ANATOMY SCAN on 07-15-2025 US OB 14+ WEEKS ANATOMY SCAN EXAM: US OB 14+ WEEKS ANATOMY SCAN [...] II, MD, PHD at 16-Jul-2025 08:07:07 AM [facility] Normal Not Available Comment on above: Order Comment: US OB ANATOMY SINGLE W US OB CERVICAL LENGTH Estimated Date of Delivery: 11/28/25 Gestational Age as of 06/22/2025: 17w2d Urinalysis macro (dipstick) panel (U)on 07-15-2025 Bilirubin, UA Negative Negative - 4(70) +++ mg/dL [facility] Blood, UA Negative Negative - 50 Teodoro/mcL [facility] Clarity, UA Clear [facility] Color, UA Yellow [facility] Glucose, UA Negative Negative - 2000(110) ++++ mg/dL [facility] Interpretation and review of laboratory results Normal [facility] Ketones, UA Negative Negative - 160(16) ++++ mg/dL [facility] Leukocytes, UA Negative Negative - 500+++ Robinson/mcL [facility] Nitrite, UA Negative Negative - Positive [facility] pH, UA 6 5 - 9 [facility] Protein, UA Negative Negative - 2000(20) ++++ mg/dL [facility] Spec Grav, UA 1.01 1 - 1.03 [facility] Urobilinogen, UA 1.0 0.2 - 12 mg/dL [facility] RECURRENT VAGINITIS (HTRX)on 06-24-2025 ATOPOBIUM VAGINAE 0 [facility] ATOPOBIUM VAGINAE Not detected [facility] BVAB 2,3 (BACTERIAL VAGINOSIS ASSOCIATED BACTERIA 2, 3); MOBILUNCUS SPP 0 [facility] BVAB 2,3 (BACTERIAL VAGINOSIS ASSOCIATED BACTERIA 2, 3); MOBILUNCUS SPP Not detected [facility] RADHA ALBICANS, PARAPSILOSIS, TROPICALIS 0 [facility] RADHA ALBICANS, PARAPSILOSIS, TROPICALIS Not detected [facility] RADHA GLABRATA 0 [facility] RADHA GLABRATA Not detected [facility] RADHA KRUSEI 0 [facility] RADHA KRUSEI Not detected [facility] CHLAMYDIA TRACHOMATIS 0 [facility] CHLAMYDIA TRACHOMATIS Not detected N [facility] GARDNERELLA VAGINALIS 17.967 Abnormal [facility] GARDNERELLA VAGINALIS Detected Abnormal [facility] Interpretation and review of laboratory results Abnormal [facility] MEGASPHAERA (TYPES 1, 2) 0 [facility] MEGASPHAERA (TYPES 1, 2) Not detected [facility] MYCOPLASMA GENITALIUM 0 [facility] MYCOPLASMA GENITALIUM Not detected N [facility] NEISSERIA GONORRHOEAE 0 [facility] NEISSERIA GONORRHOEAE Not detected N [facility] TRICHOMONAS VAGINALIS 0 [facility] TRICHOMONAS VAGINALIS Not detected N [facility] Urinalysis macro (dipstick) panel (U)on 06-22-2025 Bilirubin, UA Negative Negative - 4(70) +++ mg/dL [facility] Blood, UA Negative Negative - 50 Teodoro/mcL [facility] Clarity, UA Clear [facility] Color, UA Yellow [facility] Glucose, UA Negative Negative - 1999(110) ++++ mg/dL [facility] Interpretation and review of laboratory results Normal [facility] Ketones, UA Negative Negative - 160(16) ++++ mg/dL [facility] Leukocytes, UA Negative Negative - 500+++ Robinson/mcL [facility] Nitrite, UA Negative Negative - Positive [facility] pH, UA 6 5 - 9 [facility] Protein, UA Negative Negative - 1999(20) ++++ mg/dL [facility] Spec Grav, UA 1.005 1 - 1.03 [facility] Urobilinogen, UA 1.0 0.2 - 12 mg/dL [facility] Urinalysis macro (dipstick) panel (U)on 05-25-2025 Bilirubin, UA Negative Negative - 4(70) +++ mg/dL [facility] Blood, UA Negative Negative - 50 Teodoro/mcL [facility] Clarity, UA Clear [facility] Color, UA Yellow [facility] Glucose, UA Negative Negative - 1999(110) ++++ mg/dL [facility] Interpretation and review of laboratory results Normal [facility] Ketones, UA Negative Negative - 160(16) ++++ mg/dL [facility] Leukocytes, UA Positive Negative - 500+++ Robinson/mcL [facility] Comment on above: small Nitrite, UA Negative Negative - Positive [facility] pH, UA 6.5 5 - 9 [facility] Protein, UA Negative Negative - 1999(20) ++++ mg/dL [facility] Spec Grav, UA 1.01 1 - 1.03 [facility] Urobilinogen, UA 0.2 0.2 - 12 mg/dL [facility] BOX TESTon 05-04-2025 BOX TEST SENT OUT [facility] [address] [facility] [address] 05/04/25 [facility] CBC without diffon Hematocrit (Bld) [Volume fraction] 39.8 % [facility] Hemoglobin (Bld) [Mass/Vol] 13.2 g/dL [facility] Platelets (Bld) [#/Vol] 390 10*3/uL [facility] Rbc Mcv (Fl) By Automated Count 84.7 [facility] Drug Screen, Urineon 025 Amphetamine/Methamphet amine Negative [facility] Barbiturates Negative [facility] Benzodiazepines Negative [facility] Cocaine Metabolite Negative [facility] Methadone Negative [facility] Opiates Negative [facility] Oxycodone Negative [facility] Phencyclidine Negative [facility] Thc Marijuana, Urine Negative [facility] HBV surface Ag IA Qlon 05-04 Hepatitis B Surface Antigen Negative [facility] HCV Ab IA Qlon 05-04-2025 HCV Ab Ql (S) Non-Reactive [facility] HIV 1+2 Ab+HIV1 p24 Ag IA Ql on 05-04-2025 HIV 1&2 AB/AG Non-Reactive [facility] Hemoglobin A1con 05-04-2025 HbA1c (Bld) [Mass fraction] 5.3 % 4.0 - 6.0 % [facility] No Panel Informationon 05-04 [facility] Rubella IGG immune statusOrd ered By: Angeline Velasquez on 05-04-2025 Rubella immune IgG [facility] Type and screenon 05-04-2025 Abo/Rh(D) Positive [facility] HCG ( test) Ql (U)o n 05-01-2025 Interpretation and review of laboratory results Abnormal [facility] Preg Test, Ur Positive Negative [facility] US OB TRANSVAGINALon [address] [place] [address] Ultrasound Report Signed Patient: DRISS COPE MR#: [id number] : 1995 Acct:[id number] Age/Sex: 30 / F ADM Date: 05/01/25 Loc: US Attending Dr: Nathan Pop D.O. Ordering Physician: Nathan Pop D.O. Date of Service: 05/01/25 Procedure(s): US OB transvaginal Accession Number(s): [id number] cc: Nathan Pop D.O.; Physician,Non-Staff [place] [address] Patient Name: DRISS COPE MRN: [id number] date: 1995 Sex: F Assigned Patient Location: US Current Patient Location: US Accession/Order Number: [id number] Exam Date: 05/01/2025 08:57 Report Date: 05/01/2025 09:01 At the request of: NATHAN POP DO Procedure: US OB transvaginal US [...] Faria M.D. 05/01/2025 9:01 AM Dictation Location: [facility] Electronically authenticated by: [id number] Y Date: 05/01/2025 09:01 Dictated By: Will Faria M.D. Signed By: 05/01/25903 DD/ 0 TD/TT: Aesthetician: [facility] Radiology, Radiologandra yo MD - 05/01/2025 [place] [address] Ultrasound Report Signed Patient: DRISS COPE MR#: [id number] : 1995 Acct:[id number] Age/Sex: 30 / F ADM Date: 05/01/25 Loc: US Attending Dr: Nathan Pop D.O. Ordering Physician: Nathan Pop D.O. Date of Service: 05/01/25 Procedure(s): US OB transvaginal Accession Number(s): [id number] cc: Nathan Pop D.O.; Physician,Non-Staff [place] [address] Patient Name: DRISS COPE MRN: [facility]:[id number] date: 1995 Sex: F Assigned Patient Location: US Current Patient Location: US Accession/Order Number: [id number] Exam Date: 05/01/2025 08:57 Report Date: 05/01/2025 09:01 At the request of: NATHAN POP DO Procedure: US OB transvaginal US [...] Faria M.D. 05/01/2025 9:01 AM Dictation Location: [facility] Electronically authenticated by: [id number] Y Date: 05/01/2025 09:01 Dictated By: Will Faria M.D. Signed By: 05/01/25903 DD/ 0 TD/TT: Aesthetician: [facility] Radiology Study observation (narrative) [facility] US OB TRANSVAGINALOrdered By : Radiologist Radiology on 05-01-2025 [facility] Work Phone: Urinalysis macro (dipstick) panel (U)on 05-01-2025 Bilirubin, UA Negative Negative - 4(70) +++ mg/dL [facility] Blood, UA Negative Negative - 50 Teodoro/mcL [facility] Clarity, UA Clear [facility] Color, UA Yellow [facility] Glucose, UA Negative Negative - 1999(110) ++++ mg/dL [facility] Interpretation and review of laboratory results Normal [facility] Ketones, UA Negative Negative - 160(16) ++++ mg/dL [facility] Leukocytes, UA Negative Negative - 500+++ Robinson/mcL [facility] Nitrite, UA Negative Negative - Positive [facility] pH, UA 5.5 5 - 9 [facility] Protein, UA Negative Negative - 2000(20) ++++ mg/dL [facility] Spec Grav, UA 1.02 1 - 1.03 [facility] Urobilinogen, UA 1.0 0.2 - 12 mg/dL [facility] CHEMISTRYOrdered By: SYSTEM SYSTEM on 03-13-2025 Progesterone [...] Progesterone Lvl 31.35 ng/mL Invalid Interpretation Code [facility] Comment on above: Result Comment: 'F N ON FOLLICULAR = 0.10 - 0.60' 'LUTEAL = 3.00 - 17.5' 'MIDLUTEAL = 3.30 - 18.6' 'POST-MENOPAUSE = 0.10 - 0.40' '-FIRST TRIMESTER = 8.30 - 66.5' 'SECOND TRIMESTER = 18.9 - 66.1' 'THIRD TRIMESTER = 35.8 - 312.4' 'MALES = 0.14 - 2.06' Performed By: #### 2 [id number] #### [facility] [address] [place] [address] Progesteroneon 02-02-2025 Progesterone 0.2 ng/mL Normal . [facility] Comment on above: Result Comment: Foll icular phase 0.1 - 0.9 Luteal phase 1.8 - 23.9 Ovulation phase 0.1 - 12.0 First trimester 11.0 - 44.3 Second trimester 25.4 - 83.3 Third trimester 58.7 - 214.0 Postmenopausal 0.0 - 0.1 Performed at: [facility] [facility] [address] [id number] Mat Gauger: Cm Sandoval PhD, Phone: [phone] PERFORMED BY: [address] [address] PATHOLOGIST SOFTWARE RELEASE MANAGER ARNULFO THOMAS M.D. Performed By: #### P [...] Foy MD Transcribed by: ELOISA Technologist: GIO [facility] US Pelvis Non-OB Completeon 01-22-2025 US [...] Gonzalez MD Transcribed by: ELOISA Technologist: GIO [facility] IGP,APTIMA HPV,AGE GDLNon AGE GDLN ACOG TESTING Note . [facility] Comment on above: TESTS RESULT FLAG UN ITS REF RANGE LAB Clinician Provided Cytology Information Source.............Cervix;Endocervix No. of containers..01 ThinPrep Vial Age Gina MCFADDEN Sarah... FLAG LEGEND: L-Low Normal,H-High Normal,LL-Alert Low,HH-Alert High <-Panic Low,>-Panic High,A-Abnormal,AA-Critical Abnormal Performed at: 01 =G [address] [place] [address] Loren Oneal MD, IGP, RFX APTIMA HPV ASCU Note . [facility] Comment on above: TESTS RESULT FLAG UN ITS REF RANGE LAB DIAGNOSIS: 02 NEGATIVE FOR INTRAEPITHELIAL LESION OR MALIGNANCY. Specimen adequacy: 02 Satisfactory for evaluation. Endocervical and/or squamous metaplastic cells (endocervical component) are present. Performed by: Sophia Calzada, Hris Specialist ([facility]) . 02 Note: Note 02 The [...] <-Panic Low,>-Panic High,A-Abnormal,AA-Critical Abnormal Performed at: [address] [address] Loren Oneal MD, Performed at: = - [address] [id number] Mat Gauger: Loren Oneal MD, Phone: [phone] Performed at: [facility] [address] [id number] Mat Gauger: Loren Oneal MD, Phone: [phone] [facility] Tele[facility] ([facility]) DRISS COPE ([id number]) 1995 F Date Time Provider Department 04/29/24 CHARLENE RODRIGUEZ [facility] During your visit today, we recorded the [...] Encounter Status:Closed by CHRISTA GARCES on 04/29/24 [facility] 04-25-2024 TONYA Telephone (Q) DRISS COPE ([id number]) 1995 F Date Time Provider Department 04/25/24 GEORGEBARBARA CHARLENE [facility] During your visit today, we recorded the following information about you: EmilypearlAnna 04/25/2024 1:10 PM Signed Pt got in sooner for surgery with 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 Please cancel surgery and all pre and [...] Status:Closed by ANNA DE LEON on 04/25/24 [facility] DRISS COPE ([id number]) 1995 F Date Time Provider Department 12/12/23 CHARLENE RODRIGUEZ [facility] During your visit today, we recorded the [...] Encounter Status:Closed by CHRISTA GARCES on 12/12/23 [facility] CNOVon 12-10-2023 CNOV Office Visit ([facility] ) DRISS COPE ([id number]) 1995 F Date Time Provider Department 12/10/23 10:30 AM CHARLENE RODRIGUEZ [facility] During your visit today, we recorded the following information about you: Pulse Blood pressure Weight 98/minute 124/84 68.9 kg Charelne Rodriguez DO 12/10/2023 3:14 PM Signed [facility] SECTION FOR MINIMALLY INVASIVE GYNECOLOGIC SURGERY OUTPATIENT VISIT DATE 12/10/2023 OUTPATIENT VISIT TYPE Follow-up visit PRIMARY CARE PHYSICIAN: Cruz Rodrgíuez [address] [place] [address] REFERRING PHYSICIAN: Self CHIEF COMPLAINT: No chief [...] MRI: no evidence of 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 Normal [facility] Cytology Cervical or vaginal smear or scraping studyon 08-15-2023 [facility] 08-02-2023 CNPN Telephone ([facility]) DRISS COPE ([id number]) 1995 F Date Time Provider Department 08/02/23 CHARLENE RODRIGUEZ [facility] During your visit today, we [...] Signed PA for orilissa completed via Cover [employer]. Driss Cope (Morales: [id number]) - [id number] Orilissa 150MG tablets Status: Sent To Plan [...] Fully Assessed Reason for Visit: Insurance Authorization [[id number]] Cmt: Orilissa Prescriptions as of 08/09/2023 - [...] Encounter Status:Closed by LESLEY LYNN on 08/02/23 [facility] Guru 07-16-2023 [facility] DRISS COPE ([id number]) 1995 F Date Time Provider Department 07/16/23 11:30 AM CHARLENE RODRIGUEZ During your visit today, we recorded the following information about you: Blood pressure Last Period 136/90 07/08/23 Charlene Rodriguez DO 07/16/2023 12:41 PM Signed [facility] SECTION FOR MINIMALLY INVASIVE GYNECOLOGIC SURGERY OUTPATIENT VISIT DATE 07/16/2023 OUTPATIENT VISIT TYPE Follow-up visit PRIMARY CARE PHYSICIAN: Cruz Rodríguez [address] [place] [address] REFERRING PHYSICIAN: Cruz Rodríguez CHIEF COMPLAINT: No [...] additional bowel lesions identified 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 Normal [facility] MRI FEMALE PELVIS WO/W IVCON on 06-12-2023 MRI FEMALE PELVIS WO/W IVCON * * *Final Report* * * DATE OF EXAM: Jun 12 2023 2:47PM [facility] 0713 - MRI FEMALE PELVIS [...] additional findings. IMPRESSION: No deep infiltrating endometriosis. Aesthetician: DAVID Transcribe Date/Time: Jun 12 2023 2:54P Dictated by : ASHLEY DUKE MD This examination was interpreted and the report reviewed and electronically signed by: SONIDO FLAHERTY MD on Jun 12 2023 4:51PM EST [id number] Normal [facility] CNPNon 05-11-2023 CNPN Telephone ([facility]) DRISS COPE ([id number]) 1995 F Date Time Provider Department 05/11/23 CHARLENE RODRIGUEZ GY[facility]N During your visit today, we recorded the following information about you: Tawana Nair [facility] 05/11/2023 1:21 PM Signed Reason for call: [...] Takes aygestin 5mg daily. She did not pickle cutter flexeril. Encourage to pickle cutter the flexeril as this will help with the cramping. Reviewed red flag bleeding symptoms that require trip to ER (soaking greater than one overnight pad per hour, chest pain, shortness of breath, fatigue, palpitations).. Advised keep appt. Gives verbal understanding. Appointments for Next 60 Days Date Time Provider Location Dept Phone 05/17/2023 1:00 PM CHARLENE RODRIGUEZ [facility] Stro [phone] Christa Suárez RN Allergies As of Date: 05/11/2023 (No Known Allergies) Date Reviewed: 05/09/2023 Reviewed by: Srinivasa Downs APRN.RFP WRITER - Fully Assessed Reason for Visit: Vaginal [...] Encounter Status:Closed by CHRISTA WILLINGHAM on 05/11/23 [facility] CNOVon 05-01-2023 [facility] DRISS COP[facility] ([id number]) 1995 F Date Time Provider Department 05/01/23 10:30 AM [facility]ASA [facility] During your visit today, we recorded the following information about you: Blood pressure Weight Height Last Period 148/64 64.9 kg 1.575 m 04/22/23 Srinivasa DownsJAMI.ANA LAURA 05/09/2023 11:46 AM Signed Driss Cope is a 28 year old female who presents for problem visit for pain HPI: Pain is week before period and week of period. Worse on her period for every day she's bleeding Urinary - No symptoms GI - Always constipated. No meds Laplace - painful always Pain is on left [...] L0 SAB0 IAB0 Ectopic0 Multiple0 Live Births0 Flight Crew Time Clerk History LMP: 03/26/2023 (Approximate), Having periods Age at Menarche: Age at First : Age at Menopause: Flight Crew Time Clerk History Comments: Sexual Activity: Never; No [...] PT Contin (more content not included)... Normal [facility] CHEMISTRYOrdered By: SYSTEM SYSTEM on 01-31-2023 Albumin [...] 14 mmol/L Normal 6 - 16 mEq/L [facility] Remisol AST [Catalytic activity/Vol] 37 [iU]/d Normal [...] MDRD (S/P/Bld) [Vol rate/Area] mL/min/1.73 m2 Normal >=59mL/min/ 1.73 m2 [facility] Chem S GFR/1.73 sq M.predicted among non-blacks MDRD (S/P/Bld) [Vol rate/Area] mL/min/1.73 m2 Normal >=59mL/min/ 1.73 m2 [facility] Chem S Globulin (S) [Mass/Vol] 3.6 g/dL [...] 10 - 20 [facility] Remisol HEMATOLOGYOrdered By: Rufus Jenkins on 01-31-2023 Anisocytosis Ql (Bld) Present (01/31/23 2:10 PM) Normal [facility] HemeManSS Erythrocyte distribution width (RBC) [Ratio] 15.8 % High 10.9 - 14.2 % [facility] HemeAutoSS Hematocrit (Bld) [Volume fraction] 31.7 % Low 34.0 - 46.0 % [facility] HemeAutoSS Hemoglobin (Bld) [Mass/Vol] 9.8 g/dL Low 12.0 - 16.0 gm/dL FT HemeAutoSS Hypochromia Auto Ql (Bld) Present (01/31/23 2:10 PM) Normal [facility] HemeManSS MCH (RBC) [Entitic mass] 22.8 pg Low 27.0 - 34.0 pg FT HemeAutoSS MCHC (RBC) [Mass/Vol] 30.9 g/dL Low 31.4 - 36.0 gm/dL [facility] HemeAutoSS MCV (RBC) [Entitic vol] 73.9 fL Low 80.0 - 100.0 fL [facility] HemeAutoSS Morphology Blair (Bld) [Interp] See Morphology (01/31/23 2:10 PM) Normal [facility] HemeManSS Platelet mean volume (Bld) [Entitic vol] [...] Normal 0.0 - 8.0 % [facility] HemeAutoSS Eosinophils/Leukocytes Auto (Bld) [Pure # fraction] 0.1 E9/L Normal 0.0 - 0.5 E9/L [facility] HemeAutoSS Lymphocytes/100 WBC (Bld) 31.7 % Normal 14.0 - 50.0 % [facility] HemeAutoSS Lymphocytes/Leukocytes Auto (Bld) [Pure # fraction] 2.4 E9/L Normal 1.0 - 4.0 E9/L [facility] HemeAutoSS Monocytes/100 WBC (Bld) 9.1 % Normal 4.0 - 14.0 % [facility] HemeAutoSS Monocytes/Leukocytes Auto (Bld) [Pure # fraction] 0.7 E9/L Normal 0.2 - 1.0 E9/L [facility] HemeAutoSS Neutrophils/100 WBC (Bld) 57.4 % Normal 36.0 - 75.0 % [facility] HemeAutoSS Neutrophils/Leukocytes Auto (Bld) [Pure # fraction] 4.3 E9/L [...] PM) Normal Negative [facility] UA Auto SS Princeton.plasma/Princ[place] .RBC (Bld) [Mass ratio] 0-3 /HPF Normal 0-3/HPF [...] Desc Clean Catch (01/31/23 1:57 PM) Normal [facility] UA Auto SS Urobilinogen Qn (U) 0.7578561 {Aspen'U}/dL Normal 0.0 - 1.0 EU/dL [facility] UA Auto SS WBC Auto Ql (U) Negative (01/31/23 1:57 PM) Normal Negative [facility] UA Auto SS WBC LM.HPF (Urine sed) [#/Area] 0-5 /HPF Normal 0-5/HPF [facility] UA Auto SS BLOOD BANKOrdered By: Teena Quiroz on 12-30-2022 ABO/Rh Interp Positive Invalid Interpretation Code [facility] BB Subsection ABSC Gel Interp Negative (12/30/22 11:28 AM) Normal [facility] BB Subsection CHEMISTRYOrdered By: SYSTEM SYSTEM on 12-30-2022 Anion gap [Moles/Vol] 12 mmol/L Normal 6 - 16 mEq/L [facility] Remisol Calcium [Mass/Vol] 8.6 mg/dL Low 8.9 - 11. 1 mg/dL [facility] Remisol Chloride [Moles/Vol] 103 mmol/L Normal 101 - 1 11 mmol/L [facility] CO2 [Moles/Vol] 26 mmol/L Normal 21 - 31 mmol/L [facility] Remisol Creatinine [Mass/Vol] 0.9 mg/dL Normal 0.5 - 1.3 mg/dL [facility] Remisol GFR/1.73 sq M.predicted among blacks MDRD (S/P/Bld) [Vol rate/Area] mL/min/1.73 m2 Normal >=59mL/min/ 1.73 m2 [facility] Chem S GFR/1.73 sq M.predicted among non-blacks MDRD (S/P/Bld) [Vol rate/Area] mL/min/1.73 m2 Normal >=59mL/min/ 1.73 m2 [facility] Chem S Glucose [Mass/Vol] 105 mg/dL Normal [...] 1.2 % Normal 0.0 - 2.0 % FT HemeAutoSS Basophils/Leukocytes Auto (Bld) [Pure # fraction] 0.1 E9/L Normal 0.0 - 0.2 E9/L [facility] HemeAutoSS Eosinophils/100 WBC (Bld) 4.1 % Normal 0.0 - 8.0 % [facility] HemeAutoSS Eosinophils/Leukocytes Auto (Bld) [Pure # fraction] 0.2 E9/L Normal 0.0 - 0.5 E9/L [facility] HemeAutoSS Lymphocytes/100 WBC (Bld) 40.5 % Normal 14.0 - 50.0 % [facility] HemeAutoSS Lymphocytes/Leukocytes Auto (Bld) [Pure # fraction] 2.3 E9/L Normal 1.0 - 4.0 E9/L [facility] HemeAutoSS Monocytes/100 WBC (Bld) 7.6 % Normal 4.0 - 14.0 % [facility] HemeAutoSS Monocytes/Leukocytes Auto (Bld) [Pure # fraction] 0.4 E9/L Normal 0.2 - 1.0 E9/L [facility] HemeAutoSS Neutrophils/100 WBC (Bld) 46.6 % Normal 36.0 - 75.0 % [facility] HemeAutoSS Neutrophils/Leukocytes Auto (Bld) [Pure # fraction] 2.6 E9/L [...] AM) Normal Negative [facility] UA Auto SS Princeton.plasma/Princeton .RBC (Bld) [Mass ratio] 4-20 /HPF Normal 0-3/HPF [...] [facility] UA Auto SS Urobilinogen Qn (U) 0.3639562 {Aspen'U}/dL Normal 0.0 - 1.0 EU/dL [facility]A Auto SS WBC Auto Ql (U) Negative (12/30/22 8:53 AM) Normal Negative [facility] UA Auto SS WBC LM.HPF (Urine sed) [#/Area] 0-5 /HPF Normal 0-5/HPF [facility] UA Auto SS Office Visiton 12-05-2022 Follow-up visit [id number] Aislinn Cope 1995 F Date Provider Department Center 12/05/2022 [id number], GINA [facility] WOM None Chart Close Cosign Required by: Opal Ross MD[VARUND] No family history on file Level of Service:[id number] [place] OFFICE/OUTPATIENT ESTABLISHED LOW MDM 20-29 MIN (GE,GC) Reason for Visit and Comments: Blood Pressure Check [299] Normal [facility] Progress Noteon 12-05-2022 Progress Note --- Attestation signed by Opal Ross MD at 12/05/2022 3:19 PM [facility]: This [facility] by the resident. I reviewed and [...] weeks (around 01/02/2023) for Visit . Normal [facility] Progress Note Vital signs BP 127/87 Weight 149.2lb Pulse 106 Temp 96.7 Normal [facility] Progress Noteon 12-02-2022 Progress Note Late entry [...] to discharge. Will make patient aware. Normal [facility] Progress Note VAGINAL DELIVERY POST DAY [...] Vanessa Zambrano DO 12/02/2022, 5:09 AM Normal [facility] 42on 12-01-2022 42 22.5mm flanges given to patient. Encouraged her to call for observation of pump session and smaller flanges. Martha in NICU to assist with personal pump. Normal [facility] CARECOORDon 12-01-2022 CARECOORD 27 year old [...] home. Denies any concerns at this time. [facility] Progress Noteon 12-01-2022 Progress Note [...] so chooses. Provider's Name: Ritu RyderDO TONIA DO 12/01/2022, 5:32 AM Attestation Statement I [...] with more than 50% of the total glxo-my-pfwv time of the visit in counseling/coordination of care. , 9:22 AM [facility] 42on 11-30-2022 42 Swabs given to patie nt and educated how to use and to [facility] Breast pump use indicated for this pt. Due to: infant in [facility] breast pump, supplies kit, swabs and [...] pump Told patient to check with in [facility] for smaller flange sizes [facility] Labor and Delivery Noteon Labor [...] PreEwSF Post-operative Diagnosis: Live Born female Delivering Manager Program & Media Analyst(s): Dr. Bowden; Dr. Kramer Infant Information: Information for the patient's : Francie Cope [[id number]] Information for the patient's : Francie Cope [[id number]] Description: normal Meconium Noted: No Anesthesia: epidural [...] Status: No results found for: RUBELLAMILADYG Irina Nia, 11/30/2022, 4:04 AM [facility] Progress Noteon 11-30-2022 Progress Note Chauhan catheter inser tank by Andi Bacon RN, catheter drained and emptied for 900cc. Catheter secured to leg. Normal [facility] Progress Note Patient up to bathro om but remains unable to void. Bladder scan completed and reads >570. Sent secure message to Dr. Ruiz letting her know the above. Instructed to place chauhan catheter. [facility] Progress Note Secure message sent to Dr. Gamez stating patient is having difficulty voiding, patient's perineum is very swollen, and that patient was straight cathed for 950ml at noon. Received order for benadryl to help with swelling. Normal [facility] Progress Note Nutrition rescreen completed. Chart reviewed. Patient to be monitored and followed by the diet certified control systems technician. CRISS Oshea [facility] Progress Note Patient unable to vo id, last straight cathed at 0400. Bladder scan obtained for >928 ml, fundus +2 and shifted to right. Patient straight cathed on attempt x2 by Andi Bacon RN for 950cc. Will continue to monitor. Normal [facility] CAREPLNon 11-29-2022 CAREPLN The patient will continue to make cervical change. Clotilde Mg RN [facility] Laboratory - Hematology and Cell countsOrdered By: Lucrecia Cervantes on 11-29-2022 Platelets (Bld) [#/Vol] 386 10*3/uL 140 - 440 10*3/uL [facility] Platelets (Bld) [#/Vol]Order ed By: Lucrecia Cervantes on 11-29-2022 Interpretation and review of laboratory results Normal [facility] S. agalactiae DNA TENA+probe Ql (Unsp spec)on 11-29-2022 Group B Strep Screen Not detected Not Detected [facility] Interpretation and review of laboratory results Normal [facility] Methodology: real-ti me PCR [facility] ABO and Rh group Confirm Nom (Bld)on 11-28-2022 ABO group Nom (Bld) O [facility] D Ag Ql (RBC) Positive [facility] Blood type and Crossmatch pa chitra (Bld)on 11-28-2022 ABO group Nom (Bld) O [facility] Blood group antibody screen GEL Ql Negative [facility] D Ag Ql (RBC) Positive [facility] CBC panel Auto (Bld)Ordered By: Lauren Ayers on 11-28-2022 Erythrocyte distribution width (RBC) [Ratio] 13.3 % 11.5 - 14.5 % [facility] Hematocrit (Bld) [Volume fraction] 33.8 % Low 35.0 - 47.0 % [facility] Hemoglobin (Bld) [Mass/Vol] 11.2 g/dL Low 11.7 - 16.0 g/dL [facility] Interpretation and review of laboratory results Abnormal [facility] MCH (RBC) [Entitic mass] 28.0 pg 26.0 - 34.0 pg [facility] MCHC (RBC) [Mass/Vol] 33.1 % 32.0 - 36.0 % [facility] MCV (RBC) [Entitic vol] 84.4 fL 80.0 - 98.0 fL [facility] Platelet mean volume (Bld) [Entitic vol] 8.3 fL 7.4 - 12.4 fL [facility] Platelets (Bld) [#/Vol] 319 10*3/uL 140 - 440 10*3/uL [facility] RBC (Bld) [#/Vol] 4.00 10*6/uL 3.8 - 5.20 10*6/uL [facility] WBC (Bld) [#/Vol] 18.9 10*3/uL High 3.6 - 10.7 10*3/uL [facility] Comprehensive metabolic 1998 panelon 11-28-2022 Albumin [Mass/Vol] 3.9 g/dL 3.5 - 5.0 g/dL [facility] ALP [Catalytic activity/Vol] 201 U/L High 38 - 126 U/L [facility] ALT [Catalytic activity/Vol] 15 U/L 0 - 34 U/L [facility] Anion gap [Moles/Vol] 7 mmol/L 3 - 13 mmol/L [facility] AST [Catalytic activity/Vol] 28 U/L 15 - 46 U/L [facility] Bilirubin [Mass/Vol] 0.9 mg/dL 0.2 - 1 .3 mg/dL [facility] Calcium [Mass/Vol] 8.2 mg/dL Low 8.4 - 10. 4 mg/dL [facility] Chloride [Moles/Vol] 109 mmol/L High 98 - 10 7 mmol/L [facility] CO2 [Moles/Vol] 17 mmol/L Low 22 - 30 mmol/L [facility] Creatinine [Mass/Vol] 0.53 mg/dL 0.52 - 1.04 mg/dL [facility] GFR/1.73 sq M.predicted MDRD (S/P/Bld) [Vol rate/Area] - PINF [facility] Comment on above: Calculation based on the Chronic Kidney Disease Epidemiology Collaboration (CKD-EPI) equation refit without adjustment for race Glucose [Mass/Vol] 158 mg/dL High 70 - 100 mg/dL [facility] Interpretation and review of laboratory results Abnormal [facility] Potassium [Moles/Vol] 4.1 mmol/L 3.5 - 5.1 mmol/L [facility] Protein [Mass/Vol] 7.5 g/dL 6.3 - 8.2 g/dL [facility] Sodium [Moles/Vol] 133 mmol/L Low 135 - 145 mmol/L [facility] Urea nitrogen [Mass/Vol] 5 mg/dL Low 7 - 17 mg/dL [facility] Laboratory - Hematology and Cell countsOrdered By: Shruthi Fontana on 11-28-2022 Platelets (Bld) [#/Vol] 335 10*3/uL 140 - 440 10*3/uL [facility] Platelets (Bld) [#/Vol]Order ed By: Shruthi Fontana on 11-28-2022 Interpretation and review of laboratory results Normal [facility] CHEMISTRYOrdered By: [place] [employer] SYSTEM on 11-27-2022 Free T4 index Calc [...] 16 mmol/L Normal 6 - 16 mEq/L [facility] Remisol AST [Catalytic activity/Vol] 22 [iU]/d Normal [...] MDRD (S/P/Bld) [Vol rate/Area] mL/min/1.73 m2 Normal >=59mL/min/ 1.73 m2 [facility] Chem S GFR/1.73 sq M.predicted among non-blacks MDRD (S/P/Bld) [Vol rate/Area] mL/min/1.73 m2 Normal >=59mL/min/ 1.73 m2 [facility] S Globulin (S) [Mass/Vol] [...] (11/27/22 3:14 PM) Invalid Interpretation Code <10 [facility] Sero Fibrinogen Coag (PPP) [Mass/Vol] 539 [...] 11.0 g/dL Low 12.0 - 16.0 gm/dL [facility] HemeAutoSS MCH (RBC) [Entitic mass] 27.3 pg [...] PM) Normal Negative [facility] UA Auto SS Princeton.plasma/[place] .RBC (Bld) [Mass ratio] 4-20 /HPF Normal 0-3/HPF [...] [facility] UA Auto SS Urobilinogen Qn (U) 0.4437511 {Aspen'U}/dL Normal 0.0 - 1.0 EU/dL [facility] [...] 11 mmol/L Normal 6 - 16 mEq/L [facility] Remisol AST [Catalytic activity/Vol] 21 [iU]/d Normal [...] MDRD (S/P/Bld) [Vol rate/Area] mL/min/1.73 m2 Normal >=59mL/min/ 1.73 m2 [facility] Chem S GFR/1.73 sq M.predicted among non-blacks MDRD (S/P/Bld) [Vol rate/Area] mL/min/1.73 m2 Normal >=59mL/min/ 1.73 m2 [facility] Chem S Globulin (S) [Mass/Vol] 3.3 g/dL [...] Normal 0.0 - 8.0 % [facility] HemeAutoSS Eosinophils/Leukocytes Auto (Bld) [Pure # fraction] 0.0 E9/L Normal 0.0 - 0.5 E9/L [facility] HemeAutoSS Lymphocytes/100 WBC (Bld) 6.9 % Low 14.0 - 50.0 % [facility] HemeAutoSS Lymphocytes/Leukocytes Auto (Bld) [Pure # fraction] 1.0 E9/L Normal 1.0 - 4.0 E9/L [facility] HemeAutoSS Monocytes/100 WBC (Bld) 4.1 % Normal 4.0 - 14.0 % [facility] HemeAutoSS Monocytes/Leukocytes Auto (Bld) [Pure # fraction] 0.6 E9/L Normal 0.2 - 1.0 E9/L [facility] HemeAutoSS Neutrophils/100 WBC (Bld) 88.7 % High 36.0 - 75.0 % [facility] HemeAutoSS Neutrophils/Leukocytes Auto (Bld) [Pure # fraction] 12.3 E9/L [...] AM) Normal Negative [facility] UA Auto SS Princeton.plasma/[place] .RBC (Bld) [Mass ratio] 0-3 /HPF Normal 0-3/HPF [...] [facility] UA Auto SS Urobilinogen Qn (U) 0.9721000 {Aspen'U}/dL Normal 0.0 - 1.0 EU/dL [facility] [...] Normal 0.0 - 8.0 % [facility] HemeAutoSS Eosinophils/Leukocytes Auto (Bld) [Pure # fraction] 0.2 E9/L Normal 0.0 - 0.5 E9/L [facility] HemeAutoSS Lymphocytes/100 WBC (Bld) 31.9 % Normal 14.0 - 50.0 % [facility] HemeAutoSS Lymphocytes/Leukocytes Auto (Bld) [Pure # fraction] 1.9 E9/L Normal 1.0 - 4.0 E9/L [facility] HemeAutoSS Monocytes/100 WBC (Bld) 9.1 % Normal 4.0 - 14.0 % [facility] HemeAutoSS Monocytes/Leukocytes Auto (Bld) [Pure # fraction] 0.5 E9/L Normal 0.2 - 1.0 E9/L [facility] HemeAutoSS Neutrophils/100 WBC (Bld) 55.1 % Normal 36.0 - 75.0 % [facility] HemeAutoSS Neutrophils/Leukocytes Auto (Bld) [Pure # fraction] 3.3 E9/L Normal 2.0 - 7.5 E9/L [facility] HemeAutoSS HEMATOLOGYOrdered By: Sean aWrd on 04-25-2022 Erythrocyte distribution width (RBC) [Ratio] [...] a) No falls within the last year [id number] man 320 Work Phone: Last menstrual period start date unsure PO-VALGD-Did man 320 Work Phone: Tobacco use status CPHS b) No JC-JOKQM-Bmn man 320 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 [employer]UTIVE [employer] History of Present Rccfhap6 yo presents as a follow up for [...] again engaged x 1 year working at [employer] in [place] Review of Systems Constitutional: no fever, no [...] hours Vitals Vital Signs Recorded: 09Feb2022 11:41AM Oimauhls623 Kvfkvpioo20 Height5 ft 2 in Pnqfjb424 lb BMI Kaxgnztddj03.51 kg/m2 BSA Calculated1.61 Tobacco Useb) No Fall [...] Tashi Lopez MD 09/29/21 Final result Normal [facility] SWIMMING PROFESSOR - Office Visiton 07-0 SWIMMING PROFESSOR - Office Visit Diagnoses/Problems Assessed Anxiety (300.00) (F41.9) Orders Start: FLUoxetine HCl - 20 MG Oral Capsule; TAKE 1 CAPSULE Daily Provider Impressions 26 yo 1. 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 History of Present Dssieee1 yo with endometriosis was on norethindrone d/c'd [...] hours Vitals Vital Signs Recorded: 02Jun2021 01:19PM Hpxbdmxq254 Ppgfcbzfm65 Height5 ft 2 in Dqsmfe448 lb BMI Guveqhmvfq97.58 kg/m2 BSA Calculated1.53 Tobacco Useb) No Fall Screeninga) No falls within the last year [id number] Pain Scale0 Signatures Electronically signed by : Charlene Rodriguez DO; Jun 03 2021 10:55AM EST (Author) Normal [facility] Chlamydia sp identified Org specific cx Nom (Genital specimen)Ordered By: Jackelyn Dela Cruz on 05-16-2021 External Chlamydia Screen Negative Negative [facility] HBV surface Ag IA Qlon 05-16 External Hepatitis B Surface Ag Negative Negative, None Detected [facility] HIV 1+2 Ab and HIV1 p24 Ag I A.rapid Nom (S/P/Bld)on 05-16-2021 HIV-1/HIV-[address] [facility] No Panel Informationon 05-16 External Gonorrhea Screen Negative Negative [facility] External Rubella IGG Quantitation Positive [facility] No Panel InformationOrdered By: Jackelyn Dela Cruz on 05-16-2021 [facility] Reagin Ab RPR Ql (S)on 05-16 External RPR Non-Reactive Borderline, Nonreactive , Weakly Reactive, Equivocal [facility] SWIMMING PROFESSOR - Office Visiton 03-27 SWIMMING PROFESSOR - Office Visit Diagnoses/Problems Assessed Endometriosis (617.9) (N80.9) Never smoker Orders Stop: Norethindrone Acetate 5 MG Oral Tablet Tobacco Use Screening; Status:Complete; Done: [id number] Provider Impressions 26 yo 1. endometriosis: rx'd norethindrone referral to pelvic floor PT rtc in 3-6 months if continues to have pain, will consider centrally acting neuromodulator Chief Complaint Patient presents today for f/u for endometriosis PAP per patient 2019 WNL Circuit Board Drafter declined -CATY,EXECUTIVE CASINO HOST LMP 04/11/21 History of Present Zyqvzrm8 yo with endometriosis bleeding once per month, [...] Apr 20 2021 11:04AM EST (Author) Normal [facility] Tobacco Screening.on 021 Fall risk assessment a) No falls within the last year ZX-PSFPA-Puj man 320 Work Phone: Last menstrual period start date 11Apr2021 OA-KINKZ-Fab man 320 Work Phone: Tobacco Screening. b) No MG-OBG YN-Ris man 320 Work Phone: Radiologyon 04-14-2021 Kidney - bilateral Normal [facility]- [facility] [place] Work Phone: US RENAL BILATon 04-14-2021 US RENAL BILAT Patient Name: DRISS COPE STUDY: US RENAL BILAT; 04/14/2021 1:14 pm INDICATION: Recurrent UTI. COMPARISON: None. ACCESSION NUMBER(S): [id number] ORDERING CLINICIAN: NICHOLAS CHAU TECHNIQUE: Multiple images [...] ultrasound. Electronically signed by: GENEVIEVE BREEN MD [facility] Office Visit (Urology)on Follow-up visit Diagnoses/Problems Assessed Recurrent UTI (599.0) (N39.0) Orders Recurrent UTI Start: Nitrofurantoin Monohyd Macro 100 MG Oral Capsule; TAKE 1 CAPSULE Other Please take one capsule after sexual intercourse to prevent UTI Rx By: Nicholas Chau; Dispense: 30 Days ; #:30 Capsule; Refill: 11;For: Recurrent UTI; ROSY = N; Verified Transmission to [facility] Kidney Bilateral; Status:Hold For - Scheduling; Requested for:[id number]; Perform:[facility]; Due:[id number]; Last Updated By:Isela Terrazas; 04/01/2021 9:16:17 AM;Ordered; [...] UTI; ROSY = N; Verified Transmission to [facility] Provider Impressions 26 year old female with history of endometriosis presents today via telehealth as a new patient for evaluation of recurrent UTIs. She reports getting UTIs at least once per month, noting occasional nocturia. Symptoms include burning, frequency, and back pain. She states that some UTIs are related to sexual intercourse but most are not. Patient reports she saw Dr. Booth at [facility] in [place], noting she was only treated with medications and urethral dilation for a supposed stricture. Denies gross hematuria. Patient is a non-smoker. Urine culture from [facility] on 03/04/21 was positive for E. coli, [...] NPV - recurrent UTI History of Present Ewmqaex9 year old female with history of endometriosis presents today via telehealth as a new patient for evaluation of recurrent UTIs. She reports getting UTIs at least once per month, noting occasional nocturia. Symptoms include burning, frequency, and back pain. She states that some UTIs are related to sexual intercourse but most are not. Patient reports she saw Dr. Booth at [facility] in [place], noting she was only treated with medications [...] affect. Signature (more content not included)... Normal [facility] ID GASTRIC EMPTYING SOLIDon 11-05-2020 ID GASTRIC EMPTYING SOLID * * *Final Report* * * DATE OF EXAM: Nov 05 2020 12:26PM [facility] 0017 - ID GASTRIC EMPTYING SOLID / PROCEDURE REASON: Nausea [...] 4 HOURS IS CONSISTENT WITH MILD GASTROPARESIS. Aesthetician: DAVID Transcribe Date/Time: Nov 05 2020 1:09P Dictated by : BRUNO PEREA MD This examination was interpreted and the report reviewed and electronically signed by: BRUNO PEREA MD on Nov 05 2020 1:24PM EST [id number] Normal [facility] ANES POSTPROC EVALon 020 ANES POSTPROC EVAL HNO ID: [id number] Author: Austin Story Service: ? Author Type: [...] October 25, 2020 TIME: 2:52 PM CSN: [id number] [facility] ANES PRE-OPon 10-25-2020 ANES PRE-OP HNO ID: [id number] Author: Austin Story Service: ? Author Type: [...] October 25, 2020 TIME: 1:08 PM CSN: [id number] Normal [facility] SURGICAL PATHOLOGYon 020 SURGICAL PATHOLOGY Specimen originated from [facility] Specimen #: [id number] Submitting Physician: DAVID CRUZ MD FINAL DIAGNOSIS 1. Small bowel, biopsy (A) - Small bowel mucosa with no pathologic diagnostic abnormality; negative for celiac disease, granulomas and dysplasia. 2. Stomach, biopsy (B) - Gastric oxyntic-type mucosa with no pathologic diagnostic abnormality; see comment. /community health 10/26/2020 COMMENT 2. No microorganisms morphologically compatible [...] in one cassette. Gross examination performed at [facility], [address] [place] [address] EJL 10/25/2020 7:59:40 PM Date of Report: 10/26/2020 Date of Procedure: 10/25/2020 Date of Receipt: 10/25/2020 Submitted by: DAVID CRUZ MD Location: [facility] Diagnostic interpretation performed at [facility], [address] [place] [address]. CLIA Number: [id number] Normal [facility] Reference Lab Comment on above: Performed By: #### S #### See report for performing lab information. SURGICAL PATHOLOGY Specimen originated from [facility] Specimen #: [id number] Submitting Physician: DAVID CRUZ MD FINAL DIAGNOSIS 1. Small bowel, biopsy (A) - Small bowel mucosa with no pathologic diagnostic abnormality; negative for celiac disease, granulomas and dysplasia. 2. Stomach, biopsy (B) - Gastric oxyntic-type mucosa with no pathologic diagnostic abnormality; see comment. /community health 10/26/2020 COMMENT 2. No microorganisms morphologically compatible [...] in one cassette. Gross examination performed at [facility], [address] [place] [address] 10/25/2020 7:59:40 PM Date of Report: 10/26/2020 Date of Procedure: 10/25/2020 Date of Receipt: 10/25/2020 Submitted by: DAVID CRUZ MD Location: [facility] Diagnostic interpretation performed at [facility], [address] [place] [address]. CLIA Number: [id number] Normal [facility] ABO/RH GROUP TESTon 09-01-20 20 ABO TYPE O Normal [facility] Comment on above: Performed By: #### V ERAB #### [facility]R [address] [place] [address] RH TYPE Positive Normal [facility] Comment on above: Performed By: #### V ERAB #### [facility]R [address] Surgical Pathology Dep artmenton 09-01-2020 [facility] Surgical Pathology Department Name DRISS COPE Pathologist: ASHLEY HURTADO MD Date of Procedure: 09/01/2020 Date Received: 09/01/2020 Date Reported 09/03/2020 Submitting Physician: CHARLENE RODRIGUEZ D.O. Location: [facility] External # FINAL DIAGNOSIS A. LEFT PELVIC [...] D. Right pelvic sidewall peritoneum are 2 hhno-cpw-rdk, irregular fragments of tissue measuring 1.3 x [...] in toto in one cassette. SB amisha/09/02/2020 [facility] Department of Pathology [address] [place] [address] Normal [facility] Comment on above: Performed By: #### A #### [facility] Surgical Pathology Department [address] [place] [address] History and Physical - Surge ry > [...] T&S: O+, COVID-19: negative OB Hx: None. 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 PMHx: endometriosis Surg Hx: diagnostic laparoscopy, appendectomy (2016) Meds: Meloxicam, [place], Norethindrone acetate Social Hx: No tobacco, no [...] the note. I personally evaluated the patient [id number] Attending Provider Inpatient Certification StatementObservation patient/other outpatient [...] 01-Sep-2020 10:04 by Charlene Rodriguez () Normal [facility] Homegoing Instructionson Homegoing Instructions Additional Instructions: Handouts Given: Topic 1Anesthesia Homegoing Instructions Topic 2Surgical Site Infection Handout Topic 3New Medication Education Topic 4Suggamedex handout Electronic Signatures: Aminata Gomez) (Signed 01-Sep-2020 16:07) Authored: Additional Instructions Last Updated: 01-Sep-2020 16:07 by Aminata Gomez) Normal [facility] Patient Profile - Preop v2on 09-01-2020 Patient Profile - Preop v2 Profile: Initial Info: How to be Addressedalexis Spoken Language PreferredEnglish Are you currently using the Personal Electronic Health Record or VoCareCAREyes Stated Reason for Admissionseeing if my endometriosis is back Primary Contact Name and Numberlogan [phone] Patient Belongingsclothing locker glasses with bf Medications Brought to Hospitalno General Health: Weight in kg55.6 kilogram(s) Weight in dia172.5 pound(s) Weight Methodactual (measured) Scale Typestanding Height [...] Arrangementshouse Lives Withparent(s) Resource/Environmental Concernsnone [facility] Anticipated at Transitionnone Substance: [...] Learning Preferencesverbal instruction Cultural Considerationsnone Developmental Considerationsnone Catholic Considerationsnone Other learner availableno Falls RiskPatient location auto qualifies him/her for HIGH RISK. Are there any cultural, spiritual, taoist practices/values/needs that are important for us to knowno Pain Scalenumerical 0-10 Pain Scale Educationteaching provided Current Pain Level0 = None Acceptable Pain Level5 = Moderate Chronic Painno Information Review: Allergies, Home Meds and Significant Events have been Reviewed and Verified with Patient/Familyyes Allergy, Intolerance, Adverse Event: Allergies: No Known Allergies: Active Electronic Signatures: Sierra Kraft) (Signed 01-Sep-2020 12:39) Authored: Initial Info, General Health, Health Mgmt, Relationship/Environ, Substance, Risk Screens, Additional Information Last Updated: 01-Sep-2020 12:39 by Sierra Kraft (DIALLO) References: 1. Data Referenced From History and Physical - Surgery > 30 days 01-Sep-2020 03:42 Normal [facility] Preop Checkliston 09-01-2020 Preop Checklist Preop Checklist: Preop Checklist: Arrival [id number] Arrival Time12:30 Procedure Typelaparoscopic endometriosis excision NPO [id number] 00:00 ID Band Onyes Allergy Bandno known [...] Communication: Language / CommunicationEnglish Electronic Signatures: Sierra Kraft) (Signed 01-Sep-2020 12:35) Authored: Preop Checklist Last Updated: 01-Sep-2020 12:35 by Sierra Kraft (RN) Normal [facility] ANTIBODY IDENT.on 08-31-2020 ANTIBODY IDENT. SEE BELOW Normal [facility] Comment on above: Result Comment: NO C LINICALLY SIGNIFICANT ANTIBODIES IDENTIFIED. Performed By: #### A BID #### [facility]R [address] [place] [address] CBCon 08-30-2020 Erythrocyte distribution width (RBC) [Ratio] 12.1 % Normal 11.5 - 14.5 [facility] Comment on above: Performed By: #### C BC #### [address] [id number] Hematocrit (Bld) [Volume fraction] 39.6 % Normal 36.0 - 46.0 [facility] Comment on above: Performed By: #### C BC #### [address] [id number] Hemoglobin (Bld) [Mass/Vol] 12.6 g/dL Normal 12.0 - 16.0 [facility] Comment on above: Performed By: #### C BC #### [address] [id number] MCHC (RBC) [Mass/Vol] 31.8 g/dL Low 32.0 - 36.0 [facility] Comment on above: Performed By: #### C BC #### [address] [id number] MCV (RBC) [Entitic vol] 90 fL Normal 80 - 100 [facility] Comment on above: Performed By: #### C BC #### [address] [id number] Platelets (Bld) [#/Vol] 333 10*3/uL Normal 150 - 450 [facility] Comment on above: Performed By: #### C BC #### [address] [id number] RBC 4.42 x10E12/L Normal 4.00 - 5.20 [facility] Comment on above: Performed By: #### C BC #### [address] [id number] WBC (Bld) [#/Vol] 5.6 10*3/uL Normal 4.4 - 11.3 [facility] Comment on above: Performed By: #### C BC #### [address] [id number] CORONAVIRUS 2019, SCREEN ASY MPTOMATICon 08-30-2020 SARS-CoV-2 (COVID-19) RNA TENA+probe Ql (Unsp spec) Not detected Normal Not Detected [facility] Comment on above: Result Comment: [...] patient management decisions. Fact sheet for providers: https://www.fda.gov/media/212686/download Fact sheet for patients: https://www.fda.gov/media/396174/download This test has received FDA Emergency Use Authorization (EUA) and has been verified by [facility] ([facility]). This test is only authorized for the duration of time that circumstances exist to justify the authorization of the emergency use of in vitro diagnostic tests for the detection of SARS-CoV-2 virus and/or diagnosis of COVID-19 infection under section 564(b)(1) of the Act, 21 U.S.C. 360bbb-3(b)(1), unless the authorization is terminated or revoked sooner. [facility] is certified under CLIA-88 as qualified to perform high complexity testing. Testing is performed in the [facility] laboratories located at [address] [place] [address]. Performed By: #### C OVSC #### [place] [address] Lab Specimen Source Nasal, Nasopharyngeal Normal [facility] Comment on above: Performed By: #### C OVSC #### [address] [place] [address] TYPE + SCREENon 08-30-2020 ABO TYPE O Normal [facility] Comment on above: Performed By: #### T +S #### [facility]R [address] [place] [id number] RH TYPE Positive Normal [facility] Comment on above: Performed By: #### T +S #### [facility]R [address] [place] [id number] ABO TYPE Canceled Normal [facility] Comment on above: Order Comment: TEST TYPE + SCREEN WAS CANCELLED, 08/30/2020 13:37 JOP. Performed By: #### T +S #### [facility] [address] [place] [id number] RH TYPE Canceled Normal [facility] Comment on above: Order Comment: TEST TYPE + SCREEN WAS CANCELLED, 08/30/2020 13:37 JOP. Performed By: #### T +S #### [facility] [address] [place] [id number] HOSPon 07-29-2020 HOSP Patient:Flavio Cope MRN: Height:5' [...] for the following basenames: K,HCT Progress Notes ([facility] REJ AV4): Jaquelin Wesley Jay 10/19/2020 2:35 PM Signed COVID-19 testing is [...] 1 10 oz. Bottle of Magnesium Citrate (Lemon/[place]) ? A test for COVID 19 test [...] toast without seeds (not multigrain); pretzels; waffles, German toast and pancakes; white rice, noodles, pasta, macaroni, peeled cooked potatoes; Special K, Rice Krispies or [place] Flakes cereals; ripe bananas; melons (except watermelon [...] carbonated beverages such as chi aislinn or lemon-kasigluk soda; Gatorade? or other sports drinks (not [...] make sure you have a responsible adult equipment driver to take you home after procedure. Due to having sedation, you may not drive the rest of the day. ? If you need to reschedule, please call [phone] ?Date/Provider Dr Cruz Procedure:colonoscpy Facility:[facility] Prep ordered( if aware):miralax Knowledge of prep instructions:posted to Oculus VR Diabetic:no Blood Thinners:no Pacemaker with defibrillator:no left message for patient to return call. Nurse triage please give below message. PLEASE READ PATIENT INSTRUCTIONS BELOW. THANK YOU. [facility] PROGRESSon 07-29-2020 PROGRESS HNO ID: [id number] Author: Leon EliRtFito Pittman Service: Radiology Author Type: Consulting Intern Type: Progress Notes Filed: 07/29/2020 11:06 AM [...] RT Daya July 29, 2020 11:01 AM [facility] XR ABD 2V SUPINE W UPR/DECUB [...] structures are normal. No other significant abnormality. Aesthetician: PSCB Transcribe Date/Time: Jul 29 2020 11:19A Dictated by : LALI ORNELAS MD This examination was interpreted and the report reviewed and electronically signed by: LALI ORNELAS MD on Jul 29 2020 11:19AM EST [id number] [facility] Vital Signs Date Time Vital Sign Value Performing Clinician Facility 08-12-2025 14:32-0400 Body mass index (BMI) [Ratio] 27.82 kg/m2 [facility] Work Phone: [facility] 08-12-2025 14:32-0400 Body weight 69 kg [facility] Work Phone: [facility] 08-12-2025 14:32-0400 Diastolic blood pressure 82 mm[Hg] [facility] Work Phone: [facility] 08-12-2025 14:32-0400 Systolic blood pressure 138 mm[Hg] [facility] Work Phone: [facility] 07-30-2025 15:36-0400 Body height 157.5 cm Nay Beltran [facility] Work Phone: [facility] 07-30-2025 15:36-0400 Body mass index (BMI) [Ratio] 27.62 kg/m2 Nay Beltran [facility] Work Phone: [facility] 07-30-2025 15:36-0400 Body temperature 97.11 [degF] Nay Beltran [facility] Work Phone: [facility] 07-30-2025 15:36-0400 Body weight 68.49 kg Nay Beltran DO Work Phone: [facility] 07-30-2025 15:36-0400 Diastolic blood pressure 68 mm[Hg] Nay Beltran DO Work Phone: [facility] 07-30-2025 15:36-0400 Heart rate 97 /min Nay Beltran DO Work Phone: [facility] 07-30-2025 15:36-0400 SaO2% (BldA) [Mass fraction] 98 % Nay Beltran DO Work Phone: [facility] 07-30-2025 15:36-0400 Systolic blood pressure 102 mm[Hg] Nay Beltran DO Work Phone: [facility] 07-15-2025 15:42-0400 Body mass index (BMI) [Ratio] 26.48 kg/m2 Nathan Kiesha DO Work Phone: [facility] 07-15-2025 15:42-0400 Body weight 65.68 kg Nathan Kiesha DO Work Phone: [facility] 07-15-2025 15:42-0400 Diastolic blood pressure 80 mm[Hg] Nathan Kiesha DO Work Phone: [facility] 07-15-2025 15:42-0400 Systolic blood pressure 120 mm[Hg] Nathan Kiesha DO Work Phone: [facility] 06-22-2025 14:33-0400 Body mass index (BMI) [Ratio] 26.73 kg/m2 Nathan Kiesha DO Work Phone: [facility] 06-22-2025 14:33-0400 Body weight 66.28 kg Nathan Kiesha DO Work Phone: [facility] 06-22-2025 14:33-0400 Diastolic blood pressure 74 mm[Hg] Nathan Kiesha DO Work Phone: [facility] 06-22-2025 14:33-0400 Systolic blood pressure 118 mm[Hg] Nathan Kiesha DO Work Phone: [facility] 05-25-2025 14:45-0400 Body mass index (BMI) [Ratio] 25.24 kg/m2 Nathan Kiesha DO Work Phone: [facility] 05-25-2025 14:45-0400 Body weight 62.6 kg Nathan Kiesha DO Work Phone: [facility] 05-25-2025 14:45-0400 Diastolic blood pressure 80 mm[Hg] Nathan Kiesha DO Work Phone: [facility] 05-25-2025 14:45-0400 Systolic blood pressure 122 mm[Hg] Nathan Kiesha DO Work Phone: [facility] 05-01-2025 10:29-0400 Body mass index (BMI) [Ratio] 25.68 kg/m2 Nom Nurse [facility] 05-01-2025 10:29-0400 Body weight 63.69 kg [facility] Nurse [facility] 01-19-2025 15:08-0500 Body mass index (BMI) [Ratio] 25.99 kg/m2 Nathan Kiesha DO Work Phone: [facility] 01-19-2025 15:08-0500 Body weight 64.47 kg Nathan Kiesha DO Work Phone: [facility] 01-19-2025 15:08-0500 Diastolic blood pressure 78 mm[Hg] Nathan Kiesha DO Work Phone: [facility] 01-19-2025 15:08-0500 Systolic blood pressure 122 mm[Hg] Nathan Kiesha DO Work Phone: [facility] 12-30-2024 15:53-0500 Body height 157.5 cm Nay Beltran DO Work Phone: [facility] 12-30-2024 15:53-0500 Body mass index (BMI) [Ratio] 25.61 kg/m2 Nay Beltran DO Work Phone: [facility] 12-30-2024 15:53-0500 Body temperature 97.11 [degF] Nay Beltran DO Work Phone: [facility] 12-30-2024 15:53-0500 Body weight 63.5 kg Nay Beltran DO Work Phone: [facility] 12-30-2024 15:53-0500 Diastolic blood pressure 82 mm[Hg] Nay Beltran DO Work Phone: [facility] 12-30-2024 15:53-0500 Heart rate 51 /min Nay Beltran DO Work Phone: [facility] 12-30-2024 15:53-0500 SaO2% (BldA) [Mass fraction] 98 % Nay Beltran DO Work Phone: [facility] 12-30-2024 15:53-0500 Systolic blood pressure 122 mm[Hg] Nay Beltran DO Work Phone: [facility] 08-18-2024 11:15-0400 Body mass index (BMI) [Ratio] 25.97 kg/m2 Nathan Kiesha DO Work Phone: [facility] 08-18-2024 11:15-0400 Body weight 64.41 kg Nathan Kiesha DO Work Phone: [facility] 08-18-2024 11:15-0400 Diastolic blood pressure 70 mm[Hg] Nathan Kiesha DO Work Phone: [facility] 08-18-2024 11:15-0400 Systolic blood pressure 112 mm[Hg] Nathan Kiesha DO Work Phone: [facility] 07-22-2024 10:02-0400 Body mass index (BMI) [Ratio] 25.39 kg/m2 Nathan Kiesha DO Work Phone: [facility] 07-22-2024 10:02-0400 Body weight 62.96 kg Nathan Kiesha DO Work Phone: [facility] 07-22-2024 10:02-0400 Diastolic blood pressure 72 mm[Hg] Nathan Kiesha DO Work Phone: [facility] 07-22-2024 10:02-0400 Systolic blood pressure 122 mm[Hg] Nathan Kiesha DO Work Phone: [facility] 01-10-2024 10:55-0500 Body mass index (BMI) [Ratio] 28.17 kg/m2 Nathan Kiesha DO Work Phone: [facility] 01-10-2024 10:55-0500 Body weight 69.85 kg Nathan Kiesha DO Work Phone: [facility] 01-10-2024 10:55-0500 Diastolic blood pressure 84 mm[Hg] Nathan Kiesha DO Work Phone: [facility] 01-10-2024 10:55-0500 Systolic blood pressure 128 mm[Hg] Nathan Kiesha DO Work Phone: [facility] 09-12-2023 17:31-0400 Body temperature 98.96 [degF] [facility] 09-12-2023 17:31-0400 Diastolic blood pressure 91 mm[Hg] [facility] 09-12-2023 17:31-0400 FIO2 99 % Vongabriela [facility] 09-12-2023 17:31-0400 Heart rate 122 /min [facility] 09-12-2023 17:31-0400 Respiratory rate 16 /min [facility] 09-12-2023 17:31-0400 Systolic blood pressure 135 mm[Hg] [facility] 05-01-2023 10:55-0400 Body height 157.5 cm Srinivasa Reaper QUANTITY SURVEYOR.RFP WRITER Work Phone: [facility] 05-01-2023 10:55-0400 Body weight 64.86 kg Srinivasa Reaper QUANTITY SURVEYOR.RFP WRITER Work Phone: [facility] 05-01-2023 10:55-0400 Diastolic blood pressure 64 mm[Hg] Srinivasa Reaper QUANTITY SURVEYOR.RFP WRITER Work Phone: [facility] 05-01-2023 10:55-0400 Systolic blood pressure 148 mm[Hg] Srinivasa Reaper QUANTITY SURVEYOR.RFP WRITER Work Phone: [facility] 01-31-2023 19:18-0500 Diastolic blood pressure 82 mm[Hg] [facility] 01-31-2023 19:18-0500 Heart rate 98 /min [facility] 01-31-2023 19:18-0500 Nursing Progress Note Reason Other: this RN discharged pt. pt verbalizes understanding and denies questiosn prior to discharge. [facility] 01-31-2023 19:18-0500 Respiratory rate 16 /min [facility] 01-31-2023 19:18-0500 SaO2% (BldA) [Mass fraction] 100 % [facility] 01-31-2023 19:18-0500 Systolic blood pressure 126 mm[Hg] [facility] 01-31-2023 18:00-0500 Diastolic blood pressure 92 mm[Hg] [facility] 01-31-2023 18:00-0500 Heart rate 110 /min [facility] 01-31-2023 18:00-0500 Mean blood pressure 107 mm[Hg] [facility] 01-31-2023 18:00-0500 SaO2% (BldA) [Mass fraction] 99 % [facility] 01-31-2023 18:00-0500 Systolic blood pressure 138 mm[Hg] [facility] 01-31-2023 17:00-0500 Diastolic blood pressure 97 mm[Hg] [facility] 01-31-2023 17:00-0500 Mean blood pressure 104 mm[Hg] [facility] 01-31-2023 17:00-0500 Systolic blood pressure 117 mm[Hg] [facility] 01-31-2023 16:38-0500 Heart rate 105 /min [facility] 01-31-2023 16:38-0500 Mean blood pressure 114 mm[Hg] [facility] 01-31-2023 16:38-0500 Respiratory rate 18 /min [facility] 01-31-2023 13:49-0500 Body temperature 97.88 [degF] [facility] 01-31-2023 13:49-0500 Heart rate 118 /min [facility] 12-30-2022 14:55-0500 Body temperature 97.88 [degF] [facility] 12-30-2022 14:55-0500 Diastolic blood pressure 81 mm[Hg] [facility] 12-30-2022 14:55-0500 Heart rate 84 /min [facility] 12-30-2022 14:55-0500 Mean blood pressure 100 mm[Hg] [facility] 12-30-2022 14:55-0500 Respiratory rate 20 /min [facility] 12-30-2022 14:55-0500 SaO2% (BldA) [Mass fraction] 98 % [facility] 12-30-2022 14:55-0500 Systolic blood pressure 137 mm[Hg] [facility] 12-30-2022 14:35-0500 Body temperature 97.88 [degF] [facility] 12-30-2022 14:35-0500 Diastolic blood pressure 79 mm[Hg] [facility] 12-30-2022 14:35-0500 Heart rate 82 /min [facility] 12-30-2022 14:35-0500 Mean blood pressure 94 mm[Hg] [facility] 12-30-2022 14:35-0500 Respiratory rate 16 /min [facility] 12-30-2022 14:35-0500 SaO2% (BldA) [Mass fraction] 97 % [facility] 12-30-2022 14:35-0500 Systolic blood pressure 123 mm[Hg] [facility] 12-30-2022 13:35-0500 Body temperature 97.88 [degF] [facility] 12-30-2022 13:35-0500 Diastolic blood pressure 70 mm[Hg] [facility] 12-30-2022 13:35-0500 Heart rate 80 /min [facility] 12-30-2022 13:35-0500 Mean blood pressure 89 mm[Hg] [facility] 12-30-2022 13:35-0500 Respiratory rate 17 /min [facility] 12-30-2022 13:35-0500 SaO2% (BldA) [Mass fraction] 96 % [facility] 12-30-2022 13:35-0500 Systolic blood pressure 126 mm[Hg] [facility] 12-30-2022 13:00-0500 Respiratory rate 12 /min [facility] 12-30-2022 12:55-0500 Respiratory rate 9 /min [facility] 12-30-2022 12:50-0500 Respiratory rate 10 /min [facility] 12-30-2022 08:15-0500 Body temperature 98.24 [degF] [facility] 12-30-2022 08:15-0500 Heart rate 111 /min [facility] 12-02-2022 13:41-0500 Body temperature 98.2 [degF] Ritu Ryder DO Work Phone: [facility] 12-02-2022 13:41-0500 Diastolic blood pressure 87 mm[Hg] Ritu Ryder DO Work Phone: [facility] 12-02-2022 13:41-0500 Heart rate 111 /min Ritu Ryder DO Work Phone: [facility] 12-02-2022 13:41-0500 Respiratory rate 18 /min Ritu Ryder DO Work Phone: [facility] 12-02-2022 13:41-0500 SaO2% (BldA) [Mass fraction] 99 % Ritu Ryder DO Work Phone: [facility] 12-02-2022 13:41-0500 Systolic blood pressure 143 mm[Hg] Ritu Ryder DO Work Phone: [facility] 11-28-2022 00:45-0500 Body height 157.5 cm Ritu Ryder DO Work Phone: [facility] 11-28-2022 00:45-0500 Body mass index (BMI) [Ratio] 25.61 kg/m2 Ritu Ryder DO Work Phone: [facility] 11-28-2022 00:45-0500 Body weight 63.5 kg Ritu Ryder DO Work Phone: [facility] 11-27-2022 22:26-0500 Hourly Rounding Fredi DORSEY [facility] Comment on above: Result Comment: ensured that all pt belo ngings are sent with pt. pt has no questions or concerns. report given to EMS. pt stable and no s/s of distress. pt off unit to transfer 11-27-2022 22:00-0500 Diastolic blood pressure 97 mm[Hg] Fredi DORSEY [facility] 11-27-2022 22:00-0500 Heart rate 134 /min Fredi DORSEY [facility] 11-27-2022 22:00-0500 Hourly Rounding Fredi KARASIK [facility] 11-27-2022 22:00-0500 Mean blood pressure 116 mm[Hg] Fredi KARASIK [facility] 11-27-2022 22:00-0500 Systolic blood pressure 154 mm[Hg] Fredi KARASIK [facility] 11-27-2022 21:50-0500 Blood Pressure Location Fredi KARASIK [facility] 11-27-2022 21:50-0500 Diastolic blood pressure 90 mm[Hg] Fredi KARASIK [facility] 11-27-2022 21:50-0500 Heart rate 133 /min Fredi KARASIK [facility] 11-27-2022 21:50-0500 Hourly Rounding Fredi KARASIK [facility] 11-27-2022 21:50-0500 Mean blood pressure 113 mm[Hg] Fredi KARASIK [facility] 11-27-2022 21:50-0500 Respiratory rate 18 /min Fredi KARASIK [facility] 11-27-2022 21:50-0500 SaO2% (BldA) [Mass fraction] 98 % Fredi KARASIK [facility] 11-27-2022 21:50-0500 Systolic blood pressure 159 mm[Hg] Fredi KARASIK [facility] 11-27-2022 21:37-0500 Blood Pressure Location Fredi KARASIK [facility] 11-27-2022 21:37-0500 Diastolic blood pressure 88 mm[Hg] Fredi KARASIK [facility] 11-27-2022 21:37-0500 Heart rate 131 /min Fredi ABREUK [facility] 11-27-2022 21:37-0500 Mean blood pressure 111 mm[Hg] Fredi SCHUMACHERASIK [facility] 11-27-2022 21:37-0500 SaO2% (BldA) [Mass fraction] 97 % Fredi DORSEY [facility] 11-27-2022 21:37-0500 Systolic blood pressure 158 mm[Hg] Fredi ABREUK [facility] 11-27-2022 21:30-0500 Blood Pressure Location Fredi DORSEY [facility] 11-27-2022 21:30-0500 Body temperature 98.6 [degF] Fredi ABREUK [facility] 11-27-2022 19:00-0500 Body temperature 98.24 [degF] Fredi SCHUMACHERASIK [facility] 11-27-2022 17:15-0500 Body temperature 98.06 [degF] Fredi SCHUMACHERASIK [facility] 11-27-2022 14:02-0500 Heart rate 99 /min Fredi DORSEY [facility] 07-14-2022 07:00-0400 Body temperature 98.6 [degF] Kaylinn Dokken [facility] 07-14-2022 07:00-0400 Diastolic blood pressure 67 mm[Hg] Kaylinn Dokken [facility] 07-14-2022 07:00-0400 Heart rate 80 /min Kaylinn Dokken [facility] 07-14-2022 07:00-0400 Mean blood pressure 83 mm[Hg] Kaylinn Dokken [facility] 07-14-2022 07:00-0400 Respiratory rate 17 /min Kaylinn Dokken [facility] 07-14-2022 07:00-0400 Systolic blood pressure 115 mm[Hg] Kaylinn Dokken [facility] 07-14-2022 06:07-0400 Body temperature 98.24 [degF] Kaylinn Dokken [facility] 07-14-2022 06:07-0400 Diastolic blood pressure 79 mm[Hg] Kaylinn Dokken [facility] 07-14-2022 06:07-0400 Heart rate 90 /min Charlotteylinn Dokken [facility] 07-14-2022 06:07-0400 Respiratory rate 18 /min Charlotteylinn Dokken [facility] 07-14-2022 06:07-0400 SaO2% (BldA) [Mass fraction] 100 % Kaylinn Dokken [facility] 07-14-2022 06:07-0400 Systolic blood pressure 134 mm[Hg] Kaylinn Dokken [facility] 07-14-2022 05:30-0400 Hourly Rounding Nathan KIESHA [facility] Comment on above: Result Comment: Pt discharged per physic santiago orders. Pt ambulates off unit with a steady gait 07-14-2022 05:15-0400 Diastolic blood pressure 77 mm[Hg] Nathan KIESHA [facility] 07-14-2022 05:15-0400 Heart rate 105 /min Nathan KIESHA [facility] 07-14-2022 05:15-0400 Hourly Rounding Nathan KIESHA [facility] 07-14-2022 05:15-0400 Mean blood pressure 89 mm[Hg] Nathan KIESHA [facility] 07-14-2022 05:15-0400 Respiratory rate 18 /min Nathan KIESHA [facility] 07-14-2022 05:15-0400 Systolic blood pressure 113 mm[Hg] Nathan KIESHA [facility] 04-18-2022 11:00-0400 Body height 160.02 cm Domo Hodges Other [employer] [facility] [employer] Other 04-18-2022 11:00-0400 Body mass index (BMI) [Ratio] 23.03 kg/m2 Domo Genolandon Other [facility] [employer] Other 04-18-2022 11:00-0400 Body weight 58.97 kg Domo Genolandon Other [employer] Other 02-09-2022 11:41-0400 Body height 157.48 cm Charlene Billow DO Work Phone: OJ-BFBND-Cprzly 320 Work Phone: 02-09-2022 11:41-0400 Body mass index (BMI) [Ratio] 24.51 kg/m2 Charlene Billow DO Work Phone: HA-ETZXM-Kxgsee 320 Work Phone: 02-09-2022 11:41-0400 Body surface area Derived from formula 1.61 m2 Charlene Billow DO Work Phone: QW-UWIZK-Kxbspe 320 Work Phone: 02-09-2022 11:41-0400 Body weight 60.78 kg Charlene Billow DO Work Phone: UL-BRXCH-Hroozw 320 Work Phone: 02-09-2022 11:41-0400 Diastolic blood pressure 87 mm[Hg] Charlene Billow DO Work Phone: TI-TQGCC-Jduqhh 320 Work Phone: 02-09-2022 11:41-0400 Systolic blood pressure 136 mm[Hg] Charlene Wilderow DO Work Phone: FC-OKZUR-Bztdzt 320 Work Phone: 02-09-2022 11:41-0400 0 1 Charlene Wilderow DO Work Phone: MF-SRTKP-Bmzqoq 320 Work Phone: Comment on above: GRAV PARA [employer] 04-19-2021 14:53-0400 Body height 157.48 cm Charlene Wilderow DO Work Phone: AB-XNKMF-Lhcyle 320 Work Phone: 04-19-2021 14:53-0400 Body mass index (BMI) [Ratio] 21.77 kg/m2 Charlene Billow DO Work Phone: LE-LTEWW-Fcaggu 320 Work Phone: 04-19-2021 14:53-0400 Body surface area Derived from formula 1.53 m2 Charlene Billow DO Work Phone: QD-MFFZY-Qiczwu 320 Work Phone: 04-19-2021 14:53-0400 Body weight 53.98 kg Charlene Billow DO Work Phone: CP-CYBEJ-Evfagu 320 Work Phone: 04-19-2021 14:53-0400 Diastolic blood pressure 83 mm[Hg] Charlene Billow DO Work Phone: UU-PDBZX-Glhhwz 320 Work Phone: 04-19-2021 14:53-0400 Heart rate 108 /min Charlene Billow DO Work Phone: QW-NMXVN-Fxlboe 320 Work Phone: 04-19-2021 14:53-0400 Systolic blood pressure 142 mm[Hg] Charlene Billow DO Work Phone: WF-DKYNV-Sexjsm 320 Work Phone: 04-19-2021 14:53-0400 0 1 Charlene Billow DO Work Phone: IY-PDIYG-Apqtfw 320 Work Phone: Comment on above: GRAV PARA [employer] Encounters Encounter Date Encounter Type Care Provider Facility Start: 08-21-2025 End: 08-21-2025 Chart abstracting Scanning Provider External [facility] Start: 08-18-2025 End: 08-19-2025 Chart abstracting Quynh Clements MD Work Phone: [facility] Start: 08-15-2025 End: 08-15-2025 ambulatory MARBELLA KEANE Facility:[facility] Start: 08-12-2025 End: 08-12-2025 flow sheet Nathan Pop DO Work Phone: [facility] Comment on above: 24 weeks gestation o f ([facility]); Second trimester ([facility]); Elevated glucose tolerance test Start: 08-12-2025 End: 08-12-2025 ambulatory NATHAN POP Not Available Start: 08-12-2025 End: 08-12-2025 ambulatory Nathan POP Facility:[facility] Start: 08-01-2025 End: 08-01-2025 ambulatory Yomaira BELTRAN Facility:[facility] Start: 07-30-2025 End: 07-30-2025 Patient encounter status Nay Beltran DO Work Phone: [facility] Work Phone: Start: 07-30-2025 End: 07-30-2025 Periodic preventive med est patient 18-39 yrs Nay Beltran DO Work Phone: [facility] Comment on above: Wellness examination (Primary Dx); Hypertension, unspecified type ; Lipid screening Start: 07-30-2025 End: 07-30-2025 ambulatory NAY BELTRAN Not Available Start: 07-30-2025 End: 07-30-2025 Bamboo flowsheet Nay Beltran DO Work Phone: [facility] Start: 07-30-2025 End: 07-30-2025 Bamboo flowsheet Nay Beltran DO Work Phone: [facility] Start: 07-15-2025 End: 07-15-2025 flow sheet Nathan Kiesha DO Work Phone: [facility] Comment on above: 20 weeks gestation o f ([facility]); Second trimester ([facility]); Diabetes mellitus screening Start: 07-15-2025 End: 07-15-2025 ambulatory ANTHAN KIESHA Not Available Start: 07-15-2025 End: 07-18-2025 Clinisync Result Encounter Nathan Kiesha DO Work Phone: [facility] Unsolicited Start: 07-15-2025 End: 07-18-2025 Clinisync Result Encounter Nathan Kiesha DO Work Phone: [facility] Unsolicited Start: 06-22-2025 End: 06-22-2025 flow sheet Nathan Kiesha DO Work Phone: [facility] Comment on above: Sinusitis, unspecifi ed chronicity, unspecified location (Primary Dx); Second trimester ([facility]); 17 weeks gestation of ([facility]); Screening, , for anatomic survey ([facility]) Start: 06-22-2025 End: 06-22-2025 ambulatory NATHAN KIESHA Not Available Start: 06-22-2025 End: 06-22-2025 Bamboo flowsheet Nathan Kiesha DO Work Phone: [facility] Start: 06-22-2025 End: 06-24-2025 Bamboo flowsheet Nathan Kiesha DO Work Phone: [facility] Start: 06-22-2025 End: 06-24-2025 External Result Encounter Nathan Kiesha DO Work Phone: [facility] Unsolicited Start: 05-25-2025 End: 05-25-2025 ambulatory NATHAN KIESHA Not Available Start: 05-25-2025 End: 05-25-2025 flow sheet Nathan Kiesha DO Work Phone: [facility] Comment on above: Nonintractable episo dic headache, unspecified headache type (Primary Dx); Second trimester ([facility]); 13 weeks gestation of ([facility]) Start: 05-25-2025 End: 05-25-2025 Bamboo flowsheet Nathan Kiesha DO Work Phone: [facility] Start: 05-25-2025 End: 05-25-2025 Bamboo flowsheet Nathan Kiesha DO Work Phone: [facility] Start: 05-04-2025 End: 05-04-2025 Clinisync Result Encounter Nathan Kiesha DO Work Phone: [facility] Unsolicited Start: 05-04-2025 End: 05-04-2025 Clinisync Result Encounter Nathan Kiesha DO Work Phone: [facility] Unsolicited Start: 05-01-2025 End: 05-01-2025 Clinisync Result Encounter Nathan Kiesha DO Work Phone: [facility] Unsolicited Start: 05-01-2025 End: 05-01-2025 Clinisync Result Encounter Nathan Kiesha DO Work Phone: [facility] Unsolicited Start: 05-01-2025 End: 05-01-2025 ambulatory NAY BELTRAN Not Available Start: 05-01-2025 End: 05-01-2025 Office outpatient visit 5 minutes [facility] Kiesha Nurse [facility] Comment on above: GA: 9w6d Start: 03-13-2025 End: 03-13-2025 ambulatory Nathan R KIESHA Facility:[facility] Start: 03-13-2025 End: 03-13-2025 Patient encounter procedure Nathan R KIESHA [facility] Start: 02-02-2025 End: 02-02-2025 Patient encounter procedure Cruz Rodríguez MD Work Phone: [facility] [place] Work Phone: Start: 02-02-2025 End: 02-02-2025 ambulatory Cruz Rodríguez MD Work Phone: [facility] Work Phone: Start: 01-22-2025 End: 01-22-2025 ambulatory Nathan R KIESHA Facility:[facility] Start: 01-22-2025 End: 01-22-2025 Patient encounter procedure Nathan R KIESHA [facility] Start: 01-19-2025 End: 01-19-2025 Office outpatient [...] [facility] Start: 07-22-2024 End: 07-22-2024 Office outpatient visit 15 minutes Nathan Kiesha DO Work Phone: [facility] Comment on above: Dysmenorrhea, unspec ified Start: 04-29-2024 Telephone encounter Charlene Bill ow DO Work Phone: [facility] Start: 04-25-2024 Telephone encounter Charlene Bill ow DO Work Phone: [facility] Comment on above: Surgery Cancelled Start: 01-10-2024 End: 01-10-2024 Office outpatient visit 15 minutes Nathan Kiesha DO Work Phone: [facility] Comment on above: Menorrhagia with reg ular cycle; Pelvic pain in female; Uses control Start: 01-02-2024 Refill Charlene Billow D O Work Phone: [facility] Comment on above: Refill Request Start: 12-31-2023 ambulatory Charlene Billow D O Work Phone: Obstetrics/Gynecology Comment on above: pain Start: 12-10-2023 End: 12-10-2023 ambulatory CHARLENE BILLOW Facility:[facility] Start: 10-22-2023 ambulatory Charlene Billow D O Work Phone: [facility] Start: 10-22-2023 Patient encounter procedure Charlene Billow DO Work Phone: Obstetrics/Gynecology Comment on above: office visit Start: 09-12-2023 End: 09-12-2023 Emergency department patient visit [facility] Start: 08-30-2023 Manual pelvic examination Charlene Billow DO Work Phone: Obstetrics/Gynecology Comment on above: Pelvic pain in femal e (Primary Dx) Start: 08-26-2023 ambulatory Charlene Billow D O Work Phone: Obstetrics/Gynecology Comment on above: painful periods Start: 08-24-2023 End: 08-24-2023 Manual pelvic examination Srinivasa Downs APRN.RFP WRITER Work Phone: Gynecology Comment on above: High-tone pelvic stella or dysfunction (Primary Dx); Chronic pelvic pain in female Start: 08-24-2023 End: 08-24-2023 Telemedicine consultation with patient Srinivasa Hickmaner QUANTITY SURVEYOR.RFP WRITER Work Phone: [facility] Start: 08-24-2023 End: 08-24-2023 ambulatory SRINIVASA MARGIER Facility:[facility] Start: 08-13-2023 ambulatory Charlene Rodriguez D O Work Phone: Obstetrics/Gynecology Comment on above: painful period Start: 08-02-2023 Telephone encounter Charlene Wilder ow DO Work Phone: Gynecology Comment on above: Insurance Authorizat ion (Oril[employer]) Start: 07-16-2023 End: 07-16-2023 ambulatory CHARLENE MICHAEL Facility:[facility] Start: 06-12-2023 End: 06-12-2023 ambulatory CHARLENE MICHAEL Facility:[facility] Start: 06-12-2023 End: 06-12-2023 Subsequent hospital visit by physician [facility] (I-Stat/1.5t) Radiology Comment on above: Pelvic and perineal pain [R10.2] Start: 05-17-2023 End: 05-17-2023 Manual pelvic examination Charlene Rodriguez DO Work Phone: Obstetrics/Gynecology Comment on above: Endometriosis (Prima ry Dx); Pelvic and perineal pain Start: 05-17-2023 End: 05-17-2023 Telemedicine consultation with patient Charlene Rodriguez DO Work Phone: [facility] Start: 05-17-2023 End: 05-17-2023 ambulatory CRUZ SAHIL RODRÍGUEZ Facility:[facility] Start: 05-11-2023 Telephone encounter Charlene Wilder ow DO Work Phone: Gynecology Comment on above: Vaginal Bleeding Start: 05-01-2023 End: 05-01-2023 ambulatory CRUZ SAHIL RODRÍGUEZ Facility:[facility] Start: 05-01-2023 End: 05-01-2023 Patient encounter procedure Srinivasa Downs QUANTITY SURVEYORKarenRFP WRITER Work Phone: Gynecology Comment on above: Chronic pelvic pain in female (Primary Dx); Constipation, unspecified constipation type; High-tone pelvic floor dysfunction; Diastasis of rectus abdominis; Dysmenorrhea; Other specified dyspareunia Start: 04-22-2023 ambulatory Charlene Valladares Work Phone: Obstetrics/Gynecology Comment on above: painful Start: 01-31-2023 End: 01-31-2023 Emergency department patient visit [facility] Start: 12-30-2022 End: 12-30-2022 Patient encounter procedure [facility] Start: 12-05-2022 End: 12-05-2022 ambulatory [facility] Start: 12-05-2022 End: 12-05-2022 Office outpatient visit 15 minutes [facility] Work Phone: [facility] Comment on above: Pre-eclampsia, sever e, delivered (Primary Dx) Start: 11-28-2022 End: 12-02-2022 Evaluation and management of inpatient [facility] Start: 11-28-2022 End: 12-02-2022 Evaluation and management of inpatient Ritu Ryder DO Work Phone: [facility] Comment on above: Preeclampsia, severe , third trimester (Primary Dx) Start: 11-28-2022 End: 12-27-2022 Pre-admission assessment Fredi DORSEY [facility] Start: 11-27-2022 End: 11-27-2022 OB Triage Fredi DORSEY [facility] Start: 07-14-2022 End: 07-14-2022 Emergency department patient visit Kumar Villagomez [facility] Start: 07-14-2022 End: 07-14-2022 OB Triage Nathan POP [facility] Start: 04-25-2022 End: 04-25-2022 Patient encounter procedure DOMO HODGES [facility] Start: 04-18-2022 End: 04-18-2022 ambulatory Domo Hodges Other [facility] [employer] Other Start: 04-18-2022 Patient encounter procedure Domo Alemanlandon [facility] Start: 02-09-2022 Office outpatient vi sit 15 minutes Charlene Rodriguez DO Work Phone: SK-BYFCS-Seszzo 320 Work Phone: Start: 09-29-2021 End: 10-02-2021 ambulatory [facility] Start: 09-29-2021 End: 10-02-2021 ambulatory [facility] Start: 04-19-2021 AUDIT Charlene Valladares Work Phone: GX-DVMIX-Egcqzi 320 Work Phone: Start: 04-19-2021 PLVCPOBGYN, Provider : Charlene Rodriguez, Status: Pen, Time: 2:45 PM Nicholas Chau MD Work Phone: BX-Tifrsxs-Ohrafhkkn Work Phone: Start: 04-18-2021 Chart Update Nicholas Keating Work Phone: YA-Jeudvcv-Lvcwbjwiu Work Phone: Procedures Date Procedure Procedure Detail Performing Clinician Start: 08-15-2025 Glucose quantitative blood xcpt reagent strip Not In System Ref Prov Start: 08-15-2025 SECOND HOUR GLUCOSE TOLERANCE 100 GM LOAD Not In System Ref Prov Start: 08-12-2025 Urnls dip stick/tabl et rgnt non-auto w/o micrscp Nathan Kiesha DO Work Phone: Start: 08-12-2025 GLU 1H POST 50G LOAD No t In System Ref Prov Start: 07-15-2025 AFP, SERUM, OPEN [facility] Nathan Kiesha DO Work Phone: Start: 07-15-2025 Urnls dip stick/tabl et rgnt non-auto w/o micrscp Nathan Kiesha DO Work Phone: Start: 06-22-2025 RECURRENT VAGINITIS (HTRX) Nathan Kiesha DO Work Phone: Start: 06-22-2025 Urnls dip stick/tabl et rgnt non-auto w/o micrscp Nathan Kiesha DO Work Phone: Start: 05-25-2025 Urnls dip stick/tabl et rgnt non-auto w/o micrscp Nathan Kiesha DO Work Phone: Start: 05-04-2025 Antibody screen Cullen Clements MD Work Phone: Start: 05-04-2025 Drug scrn 1+ class nonchromo Not In System Ref Prov Start: 05-04-2025 Hemoglobin glycosylated a1c Nathan R Kiesha DO Work Phone: Start: 05-04-2025 Hepatitis c antibody No t In System Ref Prov Start: 05-04-2025 HIV 1&2 AB/AG SCREEN (P24 AG) Not In System Ref Prov Start: 05-04-2025 Iaad ia hepatitis b surface antigen Not In System Ref Prov Start: 05-04-2025 TYPE AND SCREEN Not In System Ref Prov Start: 05-04-2025 BOX TEST Nathan Fazi o DO Work Phone: Start: 05-01-2025 Urnls dip stick/tabl et rgnt non-auto w/o micrscp Nathan Kiesha DO Work Phone: Start: 05-01-2025 US OB TRANSVAGINAL Core y Kiesha DO Work Phone: Start: 08-18-2024 IGP,APTIMA HPV,AGE GDLN Nathan Pop DO Work Phone: Start: 08-18-2024 Microscopic observat ion [Identifier] in Cervix by Cyto stain Nathan Pop DO Work Phone: Start: 08-15-2023 Cytp cerv/vag auto t hin layer prep mnl screen Nathan Pop DO Work Phone: Start: 06-12-2023 Mri pelvis w/o & w/c ontrast material Charlene Rodriguez DO Work Phone: Start: 11-29-2022 Blood count platelet automated Jimmie Vincent QUANTITY SURVEYOR - ADJUNCT SOCIOLOGY PROFESSOR Work Phone: Start: 11-28-2022 Blood count platelet [...] Start: 05-16-2021 Antibody hiv-1&hiv-2 single result Megadyne [id number] Start: 05-16-2021 Iaad ia hepatitis b surface antigen Megadyne [id number] Start: 02-28-2021 Cystoscopy DOMO ALEMAN LANDON Start: 08-30-2020 End: 08-30-2020 Antibody screen Comment on above: Performed By: #### T +S #### [facility] [address] [place] [address] Order Comment: TEST TYPE + SCREEN WAS CANCELLED, 08/30/2020 13:37 JOP. Performed By: #### T +S #### [facility] [address] [place] [address] Start: 08-07-2018 RIGHT SHOULDER OPEN DISTAL CLAVICLE EXCISION 1 DOMO ALEMANCADEPearl Comment on above: RIGHT SHOULDER OPEN DISTAL CLAVICLE EXCISION RIGHT SHOULDER OPEN DISTAL CLAVICLE EXCISION Appendectomy DOMO ALEMANCADEPearl Betamethasone (substance) Gr uzma DORSEY Comment on above: Dose #1: 11/27/22 Colonoscopy DOMO EDWARD Endoscope, device (p hysical object) Von Loco Laparoscopy Nicholas Chau MD Work Phone: Plan of Treatment Date Care Activity Detail Author Start: 2045 Zoster Vaccines (1 of 2) Zoste r Vaccines (1 of 2) [employer]illing[employer] Start: 09-03-2028 Screening for malign ant neoplasm of cervix [facility] Start: 08-18-2027 Screening for malign ant neoplasm of cervix Pap Smear [facility] Start: 09-10-2025 End: 09-10-2025 Telemedicine consultation with patient 09/10/2025 11:00 AM EDT Telemedicine [facility] [address] [address] Quynh Clements MD [address] [facility], [address] [place] [address] [facility] Start: 09-10-2025 End: 09-10-2025 Patient encounter procedure 09/10/2025 9:45 AM EDT Appointment [facility] [address] [facility] [address] [place] [address] [facility] Start: 09-07-2025 End: 09-07-2025 Patient encounter procedure [facility] Start: 08-27-2025 End: 08-27-2025 Patient encounter procedure 08/27/2025 3:20 PM EDT Routine [facility] [address] [place] [phone] Marbella Keane, [facility] [address] [place] [phone] [facility] Start: 08-24-2025 End: 08-24-2025 ambulatory 08/24/2025 1:30 PM EDT Support Visit Maternal- Medicine at [facility] [address] [facility] [place] [phone] Teena Sarmiento RN [address] [facility] [place], [address] [place] [address] Kerline Steiner, RAYNA [address], [address] [place] [address] M[facility]- Medicine at [facility] Start: 08-24-2025 End: 08-24-2025 Patient encounter procedure 08/24/2025 11:00 AM EDT Office Visit [facility] [address] [place] [phone] Nathan Pop, DO [address] [place] [address] [facility] Start: 08-12-2025 End: 08-12-2025 Patient encounter procedure 08/12/2025 2:40 PM EDT Routine [facility] [address] [place] [phone] Nathan Pop, DO [address] [place] [address] [facility] Start: 08-12-2025 End: 08-12-2026 Measurement of glucose 3 hours after glucose challenge for glucose tolerance test Glucose tolerance, 3 hours Lab Routine Elevated glucose tolerance test Expected: 08/12/2025 (Approximate), Expires: 08/12/2026 [facility] Work Phone: Comment on above: Expected: 08/12/2025 (Approximate), Expires: 08/12/2026 Start: 08-12-2025 End: 08-12-2025 Professional / ancillary services management 08/12/2025 2:00 PM EDT Ancillary Procedure [facility] [address] [place] [phone] [facility] Start: 07-31-2025 End: 08-29-2025 CBC W Auto Differential panel - Blood CBC and differential Lab Routine Hypertension, unspecified type Wellness examination Expected: 07/31/2025 (Approximate), Expires: 08/29/2025 [facility] Work Phone: Comment on above: Expected: 07/31/2025 (Approximate), Expires: 08/29/2025 Start: 07-31-2025 End: 08-29-2025 Comprehensive metabolic 2000 panel - Serum or Plasma Comprehensive metabolic panel Lab Routine Hypertension, unspecified type Wellness examination Expected: 07/31/2025 (Approximate), Expires: 08/29/2025 [facility] Comment on above: Expected: 07/31/2025 (Approximate), Expires: 08/29/2025 Start: 07-31-2025 End: 08-29-2025 Lipid 1996 panel - Serum or Plasma Lipid panel Lab Routine Wellness examination Lipid screening Expected: 07/31/2025 (Approximate), Expires: 08/29/2025 [facility] Comment on above: Expected: 07/31/2025 (Approximate), Expires: 08/29/2025 Start: 07-30-2025 End: 07-30-2025 Patient encounter procedure 07/30/2025 3:40 PM EDT Office Visit [place] [facility] [address] [place] [phone] Kaftan, Nay R, DO [address] [place] [address] Arrived [facility] [place] 230 Comment on above: Arrived Start: 07-27-2025 Influenza vaccination [facility] Start: 07-15-2025 End: 07-15-2025 Patient encounter procedure 07/15/2025 3:30 PM EDT Routine [facility] [place] [facility] [address] [facility] [place] [address] Nathan Pop DO [address], [place] [address] [facility] Start: 07-15-2025 End: 07-15-2025 Professional / ancillary services management 07/15/2025 2:30 PM EDT Ancillary Procedure [facility] [address] [facility] [place] [address] [facility] Start: 07-15-2025 End: 07-15-2026 CBC panel - Blood by Automated count CBC Lab Routine Diabetes mellitus screening Expected: 07/15/2025 (Approximate), Expires: 07/15/2026 [facility] Work Phone: Comment on above: Expected: 07/15/2025 (Approximate), Expires: 07/15/2026 Start: 07-15-2025 End: 07-15-2026 Measurement of glucose 1 hour after glucose challenge for glucose tolerance test Glucose tolerance, 1 hour Lab Routine Diabetes mellitus screening Expected: 07/15/2025 (Approximate), Expires: 07/15/2026 [facility] Comment on above: Expected: 07/15/2025 (Approximate), Expires: 07/15/2026 Start: 06-22-2025 End: 06-22-2025 Patient encounter procedure 06/22/2025 2:10 PM EDT Routine [facility] [place] [facility] [address] [place] [address] Nathan Pop DO [address] [place] [address] Arrived [facility] Comment on above: Arrived Start: 06-22-2025 End: 12-23-2025 Alpha fetoprotein, maternal Alpha fetoprotein, maternal Lab Routine Second trimester ([facility]) 17 weeks gestation of ([facility]) Expected: 06/22/2025 (Approximate), Expires: 12/23/2025 [facility] Comment on above: Expected: 06/22/2025 (Approximate), Expires: 12/23/2025 Start: 06-22-2025 End: 09-22-2025 US for US OB 14+ weeks anatomy scan Imaging Routine Screening, , for anatomic survey ([facility]) Expected: 06/22/2025, Expires: 09/22/2025 [facility] Work Phone: Comment on above: Expected: 06/22/2025 , Expires: 09/22/2025 Start: 05-25-2025 End: 05-25-2025 Patient encounter procedure 05/25/2025 2:40 PM EDT Routine [facility] [address] [place] [phone] Nathan Pop, [address] [facility] [place] [address] [facility] Start: 05-01-2025 End: 05-01-2026 ABO/Rh ABO/Rh Lab Routine Missed menses , unspecified gestational age Expected: 05/01/2025 (Approximate), Expires: 05/01/2026 [facility] Comment on above: Expected: 05/01/2025 (Approximate), Expires: 05/01/2026 Start: 05-01-2025 End: 05-01-2026 Blood type and Indirect antibody screen panel - Blood Type and screen Lab Routine Missed menses , unspecified gestational age Expected: 05/01/2025 (Approximate), Expires: 05/01/2026 [facility] Work Phone: Comment on above: Expected: 05/01/2025 (Approximate), Expires: 05/01/2026 Start: 05-01-2025 End: 05-01-2026 Drugs of abuse panel - Urine by Screen method Rapid drug screen, urine Lab Routine , unspecified gestational age Encounter for supervision of normal first in first trimester Expected: 05/01/2025 (Approximate), Expires: 05/01/2026 [facility] Comment on above: Expected: 05/01/2025 (Approximate), Expires: 05/01/2026 Start: 01-19-2025 End: 01-19-2025 Patient encounter procedure [facility] Comment on above: Arrived Start: 01-19-2025 End: 01-19-2026 Progesterone Progesterone Lab Routine Pain in female genitalia on intercourse Endometriosis Expected: 01/19/2025 (Approximate), Expires: 01/19/2026 [facility] Work Phone: Comment on above: Expected: 01/19/2025 (Approximate), Expires: 01/19/2026 Start: 08-18-2024 End: 08-18-2024 Patient encounter procedure [facility] Comment on above: Arrived Start: 07-27-2024 Influ[facility] Start: 07-22-2024 End: 07-22-2025 US for US PELVIS-TRANSVAG IF INDICATED Imaging Routine Dysmenorrhea, unspecified Expected: 07/22/2024 (Approximate), Expires: 07/22/2025 [facility] Work Phone: Comment on above: Expected: 07/22/2024 (Approximate), Expires: 07/22/2025 Start: 06-23-2024 End: 06-23-2024 Patient encounter procedure 06/23/2024 10:30 AM EDT Office Visit Obstetrics/Gynecology [address] [address] Charlene Rodriguez DO [address] [place] [address] 2 WEEK POST OP Obstetrics/Gynecolog y Comment on above: 2 WEEK POST OP Start: 05-27-2024 End: 05-27-2024 Admission to same day surgery center 05/27/2024 7:30 AM EDT - 05/27/2024 9:30 AM EDT Surgery [facility] [address] [place] [address] Charlene Rodriguez, [address] [place] [address] LAPAROSCOPY FULGURATION OR EXCISION OF LESIONS OF THE OVARY PELVIC VISCERA OR PERITONEAL SURFACE BY ANY METHOD [facility] Comment on above: LAPAROSCOPY FULGURAT ION [...] physician 05/27/2024 7:30 AM EDT Hospital Encounter [facility] [address] [place] [address] Charlene Rodriguez, DO [address] [place] [address] Endometriosis [N80.9] [facility] Comment on above: Endometriosis [N80.9 ] Start: 05-25-2024 Influenza vaccination Influenza Vacc ine (#1) [facility] Comment on above: Postponed from 07/27 (Patient Refused) Start: 05-20-2024 End: 05-20-2024 ambulatory 05/20/2024 10:00 AM EDT [facility] MANAGER BOOK [employer] [facility] [address] [phone] Kevin Pires Flight Crew Time Clerk Nurse [address] [id number] RN TEACHING MANAGER BOOK [employer]OL [facility]ES [facility] Comment on above: RN TEACHING Start: 04-22-2024 End: 04-22-2024 Patient encounter procedure 04/22/2024 9:00 AM EDT Office Visit [facility] [address] [place] [address] Cruz Rodríguez MD [address] [place] [address] [facility] Start: 2024 DTaP/Tdap/Td Vaccine s (7 - Td or Tdap) DTaP/Tdap/Td Vaccines (7 - Td or Tdap) [facility] Start: 2024 Urine microalbumin profile DTaP,Tdap,Td Vaccine (7 - Td or Tdap) [facility] Start: 01-30-2024 End: 01-30-2024 Patient encounter procedure 01/30/2024 11:10 AM EST Consult [facility] [address] [facility] [facility] [place] [address] Nathan Pop, DO [address] [facility] [address] [place], [place] [phone] [facility] Start: 01-15-2024 End: 01-15-2024 Professional / ancillary services management 01/15/2024 8:00 AM EST Ancillary Procedure [facility] [address] [place] [address] [facility] Start: 01-10-2024 End: 01-10-2025 US for US PELVIS-TRANSVAG IF INDICATED Imaging Routine Pelvic pain in female Expected: 01/10/2024 (Approximate), Expires: 01/10/2025 [facility] Work Phone: Comment on above: Expected: 01/10/2024 (Approximate), Expires: 01/10/2025 Start: 11-26-2023 Behavioral Health Screening Behavioral Health Screening [facility] Start: 11-26-2023 Depression Assessment [facility] Start: 07-27-2023 Covid-19 Vaccine ( season) Covid-19 Vaccine ( season) [facility] Start: 07-27-2023 Influenza vaccination [facility] Start: 11-26-2022 DEPRESSION ASSESSMENT DEPRESSION ASS ESSMENT [facility] Start: 07-27-2022 Influenza vaccination Influenza Vacc ine (#1) [facility] Start: 05-23-2022 FUV, Provider: Charlene Rodriguez, Status: Pen, Time: 1:30 PM FUV, Provider: Charlene Rodriguez, Status: Pen, Time: 1:30 PM [id number] Work Phone: Start: 08-16-2021 FUV, Provider: Charlene Rodriguez, Status: Pen, Time: 11:15 AM FUV, Provider: Charlene Rodriguez, Status: Pen, Time: 11:15 AM [id number] Work Phone: Start: 2016 PAP TESTING PAP TESTING [facility] Start: 2016 Screening for malign ant neoplasm of cervix [facility] Start: 2014 DTaP,Tdap and Td Vaccines (1 - Tdap) DTaP,Tdap and Td Vaccines (1 - Tdap) [facility] Start: 2014 DTaP/Tdap/Td Vaccine s (1 - Tdap) DTaP/Tdap/Td Vaccines (1 - Tdap) [facility] Start: 2014 Urine microalbumin profile [facility] Start: 2013 Adult BMI Screening Adult BMI Screen ing [facility] Start: 2013 ANNUAL PCP TEAM RECREATION CENTER DIRECTOR RIGO DISEASE VISIT ANNUAL PCP TEAM CHRONIC DISEASE VISIT [facility] Start: 2013 BP CONTROLLED (<130/80) BP CONTROLLE D (<130/80) [facility] Start: 2013 HEPATITIS C SCREENING HEPATITIS C [facility] Start: 2013 Hepatitis C screening Hepatitis C [facility] Start: 2013 HIV SCREENING HIV SCREENING [facility] Start: 2013 HIV screening HIV Screening [facility] Start: 2007 [facility]: 2007 Tobacco Screening Tobacco Screening [facility] Start: 05-31-2000 Varicella vaccination Varicell a Vaccines (1 of 2 - 2-dose childhood series) [facility] Start: 1996 MMR Vaccines (1 of 1 - Standard series) MMR Vaccines (1 of 1 - Standard series) [facility] Start: 1996 Varicella vaccination Varicell a Vaccines (1 of 2 - 2-dose childhood series) [facility] Start: 1995 COVID-19 VACCINE (#1) COVID-19 VACCI NE (#1) [facility] Start: 1995 HEPATITIS B (1 of 3 - 3-dose series) HEPATITIS B (1 of 3 - 3-dose series) [facility] Start: 1995 Hepatitis B Vaccine (1 of 3 - 3-dose series) Hepatitis B Vaccine (1 of 3 - 3-dose series) [facility] Start: 1995 Hepatitis B Vaccines (1 of 3 - 3-dose series) Hepatitis B Vaccines (1 of 3 - 3-dose series) [facility] Start: [address] Lip[address] Lipid Panel [facility] Bacteria identified in Urine by Culture Urine culture Microbiology Routine Missed menses Ordered: 05/01/2025 [facility] Comment on above: Ordered: 05/01/2025 CBC W Auto Different ial panel - Blood CBC and differential Lab Routine Missed menses , unspecified gestational age Ordered: 05/01/2025 [facility] Comment on above: Ordered: 05/01/2025 Cytology Cervical or vaginal smear or scraping study Pap Smear Pathology and Cytology Routine Well woman exam with routine gynecological exam Ordered: 08/18/2024 [facility] Work Phone: Comment on above: Ordered: 08/18/2024 Hemoglobin A1c/Hemoglobin.total in Blood Hemoglobin A1c Lab Routine Missed menses , unspecified gestational age Ordered: 05/01/2025 [facility] Comment on above: Ordered: 05/01/2025 Hepatitis B virus surface Ag [Presence] in Serum or Plasma by Immunoassay Hepatitis B surface antigen Lab Routine Missed menses , unspecified gestational age Ordered: 05/01/2025 [facility] Comment on above: Ordered: 05/01/2025 Hepatitis C virus Ab [Presence] in Serum or Plasma by Immunoassay Hepatitis C antibody Lab Routine Missed menses , unspecified gestational age Ordered: 05/01/2025 [facility] Comment on above: Ordered: 05/01/2025 HIV-1/HIV-2 antigen/antibody combination immunoassay HIV-1 and HIV-2 antibodies Lab Routine Missed menses , unspecified gestational age Ordered: 05/01/2025 [facility] Comment on above: Ordered: 05/01/2025 End: 06-15-2024 Mri pelvis w/o & w/contrast material MRI FEMALE PELVIS WO/W IVCON Radiology Routine Pelvic and perineal pain 1 Occurrences starting 05/17/2023 until 06/15/2024 [facility] Work Phone: Comment on above: 1 Occurrences starti ng 05/17/2023 until 06/15/2024 Reagin Ab [Presence] in Serum by RPR RPR Lab Routine Missed menses , unspecified gestational age Ordered: 05/01/2025 [facility] Comment on above: Ordered: 05/01/2025 Rubella antibody, IgG Rubella an tibody, IgG Lab Routine Missed menses , unspecified gestational age Ordered: 05/01/2025 [facility] Comment on above: Ordered: 05/01/2025 End: 11-30-2022 Tissue exam [facility] Work Phone: Comment on above: Once (Lab) for 1 Occ urrences starting 11/30/2022 until 11/30/2022, 1 completed [facility] c [facility] c [facility] [place] Immunizations Immunization Date Immunization Notes Care Provider [facility] 09-11-2014 hepatitis A vaccine, adult dosage Nathan Kiesha DO Work Phone: [facility] 09-11-2014 human papilloma viru s vaccine, quadrivalent Nathan Kiesha DO Work Phone: [facility] 09-11-2014 influenza, seasonal, injectable, preservative free Nathan Kiesha DO Work Phone: [facility] 09-11-2014 influenza virus vaccine, unspecified formulation Tonia Moschella DO Work Phone: [facility] 05-04-2014 human papilloma viru s vaccine, quadrivalent Nathan Kiesha DO Work Phone: [facility] 2014 hepatitis A vaccine, adult dosage Nathan Kiesha DO Work Phone: [facility] 2014 human papilloma viru s vaccine, quadrivalent Nathan Kiesha DO Work Phone: [facility] 2014 tetanus toxoid, redu quinton diphtheria toxoid, and acellular pertussis vaccine, adsorbed Nathan Kiesha DO Work Phone: [facility] 04-03-2007 meningococcal polysaccharide (groups A, C, Y and W-135) diphtheria toxoid conjugate vaccine (MCV4P) Nathan Kiesha DO Work Phone: [facility] 05-03-2000 diphtheria, tetanus toxoids and acellular pertussis vaccine, unspecified formulation Nathan Kiesha DO Work Phone: [facility] 05-03-2000 measles, mumps and rubella virus vaccine Nathan Kiesha DO Work Phone: [facility] 05-03-2000 poliovirus vaccine, inactivated Nathan Kiesha DO Work Phone: [facility] 12-29-1997 diphtheria, tetanus toxoids and acellular pertussis vaccine, unspecified formulation Nathan Kiesha DO Work Phone: [facility] 08-01-1996 DTP-Haemophilus influenzae type b conjugate vaccine Nathan Kiesha DO Work Phone: [facility] 08-01-1996 hepatitis B vaccine, pediatric or pediatric/adolescent dosage Nathan Kiesha DO Work Phone: [facility] 08-01-1996 measles, mumps and rubella virus vaccine Nathan Kiesha DO Work Phone: [facility] 08-01-1996 trivalent poliovirus vaccine, live, oral Nathan Kiesha DO Work Phone: [facility] 1995 DTP-Haemophilus influenzae type b conjugate vaccine Nathan Kiesha DO Work Phone: [facility] 1995 hepatitis B vaccine, pediatric or pediatric/adolescent dosage Nathan Kiesha DO Work Phone: [facility] 1995 trivalent poliovirus vaccine, live, oral Nathan Kiesha DO Work Phone: [facility] 1995 DTP-Haemophilus influenzae type b conjugate vaccine Nathan Kiesha DO Work Phone: [facility] 1995 hepatitis B vaccine, pediatric or pediatric/adolescent dosage Nathan Kiesha DO Work Phone: [facility] 1995 trivalent poliovirus vaccine, live, oral Nathan Kiesha DO Work Phone: [facility] NEGATED: Highlighted row has not occurred!12-02-2022 measles, mumps and rubella virus vaccine Ritu Ryder DO Work Phone: [employer] Comment on above: Deferred: Other - Ru haja Immune NEGATED: Highlighted row has not occurred!12-02-2022 tetanus toxoid, reduced diphtheria toxoid, and acellular pertussis vaccine, adsorbed Ritu Ryder DO Work Phone: [employer] Comment on above: Deferred: No longer needed - Refused Tdap vaccine. Payers Date Payer Category Payer Self-pay 2024 Commercial Managed Care - [employer] [id number] 2024 Private Health Insurance [employer] [id number] 2024 Unknown [id number] 2022 Medicaid HMO [facility] MEDICAID [id number] 2022 Medicaid [id number] 2022 Unknown 2022 Unknown [id number] 2020 Unknown [id number] 2018 Medicaid [id number] 2018 Private Health Insurance [id number] 1995 Unknown [id number] [id number] 1995 Unknown [id number] [id number] 1995 Unknown [id number] [id number] 1995 Unknown [id number] [id number] 1995 Unknown [id number] [id number] 1995 Unknown [id number] 2.7 1995 Unknown [id number] 2.7 1995 Unknown [id number]. 2.1258 1995 Unknown [id number] [id number]. 2.1258 1995 Unknown [id number] 2.16.840.1.061149.3.579. 2.1258 1995 Unknown [id number] 2.16.840.1.611894.3.579. 2.1258 1995 Unknown [id number] 2.16.840.1.655178.3.579. 2.1258 1995 Unknown [id number] 2.16.840.1.964919.3.579. 2.1258 1995 Unknown [id number] 2.16.840.1.911134.3.579. 2.1258 1995 Unknown [id number] 2.16.840.1.364515.3.579. 2.1258 1995 Unknown [id number] 2.16.840.1.525763.3.579. 2.1258 1995 Unknown [id number] 2.16.840.1.205935.3.579. 2.1258 1995 Unknown [id number] 2.16.840.1.996310.3.579. 2.1258 1995 Unknown [id number] 2.16.840.1.067408.3.579. 2.727 Unknown [id number] [id number]. 2.531 Social History Date Type Detail Facility Start: 01-06-2021 End: 07-16-2023 Always uses seat belt Always uses seat belt [facility] Start: 12-10-2018 End: 03-10-2021 Tobacco smoking status Never smoked tobacco (finding) [facility] Tobacco smoking status Never [facility] Start: 01-06-2021 End: 07-16-2023 Sex Assigned At Female [place] Ashley Macdonald [employer] Other Tobacco [facility] Comment on above: denies. Tobacco smoking status [facility] Start: 12-10-2018 End: 04-11-2023 Tobacco use and exposure Smokeless tobacco non-user [facility] Start: 04-11-2023 End: 12-10-2023 Alcohol intake Current drinker of alcohol (finding) [facility] Start: 10-08-2020 Alcohol Comment maybe a few dr martinez a month [facility] Start: 1995 Sex Assigned At Not on file [facility] Start: 01-10-2024 End: 08-12-2025 Alcohol intake Lifetime non-drinker (finding) [facility] Within the last year , have [...] 11-28-2022 History SDOH IPV Fear 2 S [facility] Start: 11-28-2022 History SDOH Housing Places Lived 1 [facility] Start: 04-12-2022 [facility] Start: 11-18-2022 End: 12-05-2022 Exposure to SARS-CoV-2 (event) Not sure [facility] Are you now , , , , never or living with a partner? [facility] Do you feel stress - tense, restless, nervous, or anxious, or unable to sleep at night because your mind is troubled all the time - these days [OSQ] Only a little [facility] Start: 12-02-2018 End: 02-03-2025 Sex Female (finding) [facility] Start: 1995 Sex Assigned At Female F [facility] Start: 08-19-2025 Alcoholic beverage intake Current non-drinker of alcohol (finding) [facility] Functional Status Date Assessment Result Facility 07-30-2025 Patient Health Quest ionnaire 2 item (PHQ-2) [Reported] [facility] 09-12-2023 Functional Status N/A [facility] 01-31-2023 Functional Status N/A [facility] 12-30-2022 Functional Status N/A [facility] 11-27-2022 Functional Status N/A [facility] 07-14-2022 N/A [facility] Clinical Notes 04-18-2022 to 08-12-2025 Marbella Keane, DEVYN - 08/12/2025 2:40 PM Sharon Beltran, - 07/30/2025 3:40 PM Sharon Beltran, DO - 07/30/2025 3:40 PM Venus Ravi LPN - 07/15/2025 3:30 PM EDT Note Date & Type Note Facility 08-12-2025 History of Presen t illness Narrative Reason for Appointment: Patient ID: Driss Gama [...] San infection Headache History of menstrual cramps ([facility]) Varicella zoster Visual impairment HISTORY PAST MEDICAL HISTORY SOCIAL HISTORY Past Medical History: Diagnosis Date Amenorrhea d/t oral contraceptive pills Endometriosis John San infection Headache History of menstrual cramps severe Hypertension ([facility]) x1 Varicella zoster unsure Visual impairment w/ [...] Procedure Laterality Date APPENDECTOMY 05/2016 at [facility] DILATION AND CURETTAGE [...] nursing note reviewed. Exam conducted with a metal polisher and buffer apprentice present. Vitals: Estimated body mass index is 27.82 kg/m as calculated from the following: Height as of 07/30/25: 5' 2 . Weight as of this encounter: 152 lb 1.9 oz. BP: 138/82 Patient's last menstrual period was 02/21/2025. ASSESSMENT & PLAN ICD-10-CM 1. 24 weeks gestation of ([facility]) Z3A.24 POCT urinalysis dipstick manually resulted 2. Second trimester ([facility]) Z34.92 POCT urinalysis dipstick manually resulted 3. [...] on Labetalol 100mg BID. Will refer to [facility] for evaluation. Patient denies any Headache or blurred vision. Documented by Marbella Keane NP on behalf of: Nathan Pop DO documented in this encounter [facility] 07-30-2025 History of Presen t illness Narrative Associated Problem(s): Hypertension Record Blood Pressures 2-4 times weekly and record. Return with readings at next appointment. Call with readings if sees significant changes Images from the original note were not included. Subjective ?Quick Links Last Note in Specialty Snapshot Current Meds Patient ID: Driss Gama is a 30 y.o. female who presents for Well Visit. Subjective Driss Gama is a 30 y.o. female and is here for a comprehensive physical exam. The patient reports no problems. Currently 22 weeks . Do you take any herbs or supplements that were not prescribed by a doctor? no Are you taking calcium supplements? no Are you taking aspirin daily? no Review of Systems Constitutional: Negative for appetite change and fatigue. HENT: Negative for hearing loss. Respiratory: Negative for chest tightness and shortness of breath. Gastrointestinal: Negative for abdominal pain, blood in stool, constipation and diarrhea. Genitourinary: Negative for dysuria. Musculoskeletal: Negative for arthralgias and gait problem. Skin: Negative for rash. Neurological: Negative for dizziness, light-headedness and headaches. Psychiatric/Behavioral: Negative for sleep disturbance. The patient is not nervous/anxious. Hematological: Does not bruise/bleed easily. ?Quick Review Review Full History Meds - metoprolol succinate XL (Toprol-XL) 25 MG 24 hr tablet Vit-Fe Fumarate-FA ( Vitamins) 28-0.8 MG tablet --- PMH - Amenorrhea d/t oral contraceptive pills Endometriosis John San infection Headache History of menstrual cramps Hypertension ([facility]) Varicella zoster Visual impairment Objective ?Quick Links Timeline (Adult) Labs Imaging Results Review Trend Vitals ?? Avoid pulling in long tables of results. Comment on relevant results to support your medical decision making. LMP 02/21/2025 Physical Exam Constitutional: Appearance: Normal appearance. She is normal weight. HENT: Head: Normocephalic and atraumatic. Right Ear: Tympanic membrane normal. Mouth/Throat: Mouth: Mucous membranes are moist. Pharynx: Oropharynx is clear. Eyes: Extraocular Movements: Extraocular movements intact. Pupils: Pupils are equal, round, and reactive to light. Cardiovascular: Rate and Rhythm: Normal rate and regular rhythm. Pulses: Normal pulses. Pulmonary: Effort: Pulmonary effort is normal. Breath sounds: Normal breath sounds. No wheezing, rhonchi or rales. Abdominal: General: Bowel sounds are normal. Palpations: Abdomen is soft. There is no mass. Tenderness: There is no abdominal tenderness. Musculoskeletal: General: Normal range of motion. Cervical back: Normal range of motion and neck supple. No tenderness. Skin: General: Skin is warm and dry. Neurological: General: No focal deficit present. Mental Status: She is alert and oriented to person, place, and time. Psychiatric: Mood and Affect: Mood normal. Thought Content: Thought content normal. Judgment: Judgment normal. ?Quick Links Full Problem List Allergy Cardiology Chronic Pain GI Headache Hypertension Assessment & Plan Hypertension, unspecified type Record Blood Pressures 2-4 times weekly and record. Return with readings at next appointment. Call with readings if sees significant changes Wellness examination Completed wellness visit, no restrictions. Completed forms for participation. Call or return to clinic as problems arise or for next annual wellness visit Orders: CBC and differential; Future Comprehensive metabolic panel; Future Lipid panel; Future Lipid screening Orders: Lipid panel; Future documented in this encounter [facility] 07-15-2025 History of Presen t illness Narrative Reason for Appointment: Patient ID: Driss Gama is a 30 y.o. female who presents for Routine Visit Patient presents today for Return OB appointment. MEDICATIONS Current Outpatient Medications Medication Instructions metoprolol succinate XL (Toprol-XL) 25 MG 24 [...] San infection Headache History of menstrual cramps ([facility]) Varicella zoster Visual impairment HISTORY PAST MEDICAL [...] Procedure Laterality Date APPENDECTOMY 05/2016 at [facility] [place] DILATION AND CURETTAGE [...] nursing note reviewed. Exam conducted with a metal polisher and buffer apprentice present. Vitals: Estimated body mass index is 26.48 kg/m as calculated from the following: Height as of 12/30/24: 5' 2 . Weight as of this encounter: 144 lb 12.8 oz. BP: 120/80 Patient's last menstrual period was 02/21/2025. ASSESSMENT & PLAN ICD-10-CM 1. 20 weeks gestation of ([facility]) Z3A.20 POCT urinalysis dipstick manually resulted 2. Second trimester ([facility]) Z34.92 POCT urinalysis dipstick manually resulted 3. Diabetes mellitus screening Z13.1 CBC Glucose tolerance, 1 hour CBC Glucose tolerance, 1 hour Patient presents today for a routine obstetrics appointment. Patient is currently 20w4d with a Estimated Date of Delivery: 11/28/25. Pt had anatomy scan prior to appt. Pt has skin tag towards bottom of vaginal opening. Hymenal remnant noted. Pt to return in 4 weeks for scheduled ob appt. Pt given glucola and cbc Documented by Christine Ravi LPN on behalf of: Nathan Pop DO documented in this encounter [facility] 06-22-2025 History of Presen t illness Narrative Reason for Appointment: Patient ID: Driss Gama is a 30 y.o. female who presents for Routine Visit Patient presents today for Return OB appointment. MEDICATIONS Current Outpatient Medications Medication Instructions cetirizine (ZYRTEC ALLERGY) 10 mg, Oral, Daily metoprolol succinate XL (Toprol-XL) 25 MG 24 hr tablet Take 1 tablet by mouth daily Vit-Fe Fumarate-FA ( Vitamins) 28-0.8 MG tablet 1 tablet, Oral, Daily promethazine (PHENERGAN) 12.5 mg, Oral, Every 6 hours PRN, Take 1 tablet by mouth every 6 hours as needed for nausea. ALLERGIES No Known Allergies PROBLEMS Active Ambulatory [...] San infection Headache History of menstrual cramps ([facility]) Varicella zoster Visual impairment HISTORY PAST MEDICAL [...] Procedure Laterality Date APPENDECTOMY 05/2016 at [facility] [place] DILATION AND CURETTAGE [...] nursing note reviewed. Exam conducted with a metal polisher and buffer apprentice present. Vitals: Estimated body mass index is 26.73 kg/m as calculated from the following: Height as of 25: 5' 2 . Weight as of this encounter: 146 lb 1.9 oz. BP: 118/74 Patient's last menstrual period was 02/21/2025. ASSESSMENT & PLAN (Z34.92) Second trimester ([facility]) Plan: POCT urinalysis dipstick manually resulted, Alpha fetoprotein, maternal, Alpha fetoprotein, maternal (Z3A.17) 17 weeks gestation of ([facility]) Plan: POCT urinalysis dipstick manually resulted, Alpha fetoprotein, maternal, Alpha fetoprotein, maternal (Z36.89) Screening, , for anatomic survey ([facility]) Plan: US OB 14+ weeks anatomy scan Return OB: Patient presents today for a routine obstetrics appointment. Patient is currently 17w2d . Patient states she is doing well but has complaints of being tired due to current . Patient has verbalizes frequent movement. labor precautions was discussed/given and patient was instructed to perform kick counts three times a day. Orders Placed This Encounter Procedures US OB 14+ weeks anatomy scan Alpha fetoprotein, maternal POCT urinalysis dipstick manually resulted Follow Up: Patient with continued sinus complaints and has trialed zyrtec without relief. She is going to trial Flonase. Patient is to return to office in 4 week for routine OB appointment. Documented by Marbella Keane NP on behalf of: Nathan Pop DO documented in this encounter [facility] 05-25-2025 History of Presen t illness Narrative Reason for Appointment: Patient ID: Driss Gama is a 30 y.o. female who presents for Routine Visit Patient presents today for Return OB appointment. MEDICATIONS Current Outpatient Medications Medication Instructions magnesium oxide (MAG-OX) 400 mg, Oral, Daily metoprolol succinate XL (Toprol-XL) [...] San infection Headache History of menstrual cramps ([facility]) Varicella zoster Visual impairment HISTORY PAST MEDICAL [...] Procedure Laterality Date APPENDECTOMY 05/2016 at [facility] [place] DILATION AND CURETTAGE [...] of Systems Constitutional: Negative. HENT: Negative. Headache continuing Magnesium does not seem to be helping Eyes: Negative. Respiratory: Negative. Cardiovascular: Negative. Gastrointestinal: [...] nursing note reviewed. Exam conducted with a metal polisher and buffer apprentice present. Vitals: Estimated body mass index is 25.24 kg/m as calculated from the following: Height as of 12/30/24: 5' 2 . Weight as of this encounter: 138 lb. BP: 122/80 Patient's last menstrual period was 02/21/2025. ASSESSMENT & PLAN ICD-10-CM 1. Second trimester ([facility]) Z34.92 POCT urinalysis dipstick manually resulted 2. 13 weeks gestation of ([facility]) Z3A.13 Return OB: Patient presents today for a routine obstetrics appointment. Patient is currently 13w2d . Patient states she is doing well but has complaints of being tired due to current . Patient has verbalizes frequent movement. labor precautions was discussed/given and patient was instructed to perform kick counts three times a day. Orders Placed This Encounter Procedures POCT urinalysis dipstick manually resulted Follow Up: Patient is to return to office in 4 week for routine OB appointment. Documented by Marbella Keane NP on behalf of: Nathan Pop DO documented in this encounter [facility] 05-01-2025 History of Presen t illness Narrative Reason for Appointment: Patient ID: Driss Gama [...] which includes the following prescription(s): metoprolol succinate xl and vitamins. Medical History: Active Ambulatory Problems Diagnosis [...] Procedure Laterality Date APPENDECTOMY 05/2016 at [facility] [place] DILATION AND CURETTAGE 12/2022 retained placenta DISTAL CLAVICLE EXCISION Right 07/2018 Shoulder - open - DAP LAPAROSCOPY DIAGNOSTIC / BIOPSY / ASPIRATION / LYSIS 02/2019 endometriosis, 2020 LAPAROSCOPY DIAGNOSTIC / BIOPSY / ASPIRATION / LYSIS 02/29/2024 SHOULDER SURGERY Right open distal clavicle excision-DAP VAGINAL DELIVERY 11/2022 No Known Allergies Vitals: Estimated body mass index is 25.68 kg/m as calculated from the following: Height [...] drink 6-8 glasses of water a day, eat no raw or undercooked meat, and stay away from [facility]. Patient has also been advised to not change litter boxes and eat 6 small meals a day. Patient has been consulted regarding the do's and don'ts of . Patient was given labs and all questions and concerns were answered. Follow Up: Patient is to return in 4 weeks for routine OB appointment. Follow Up: Patient is to have labs drawn at directed and return to office for initial OB appointment with provider. Patient may call office as needed with any concerns or questions. Nurse Visit Completed by: Hina Go LPN documented in this encounter [facility] 01-19-2025 History of Presen t illness Narrative Reason for Appointment: Patient ID: Driss Gama is a 29 y.o. female who presents for Painful [place] Patient presents today for Consult appointment. MEDICATIONS Current Outpatient Medications Medication Instructions ncckpypwyk-tmnlsvcvftold-orycdl ne 50-325-40 MG tablet 1 tablet, Oral, [...] Dysmenorrhea 03/29/2023 Endometriosis 03/29/2023 Gastroparesis 03/29/2023 Hypertension ([facility]/HCC) 03/29/2023 Intractable migraine without aura and with status migrainosus ([facility]/HCC) 03/29/2023 Migraines (CMS/HCC) 03/29/2023 Chronic pelvic pain in female 03/29/2023 Pain in female genitalia on intercourse 03/29/2023 Pain on swallowing 03/29/2023 Panic disorder ([facility]/HCC) 03/29/2023 Patellofemoral disorders, left knee 03/29/2023 Patellofemoral disorders, right knee 03/29/2023 Posterior calcaneal exostosis 03/29/2023 Scapular dyskinesis 03/29/2023 Scoliosis 03/29/2023 Seasonal allergic rhinitis due to pollen 03/29/2023 Tachycardia, paroxysmal ([facility]) 03/29/2023 Tension headache 03/29/2023 Vitamin [...] Headache History of menstrual cramps severe Hypertension ([facility]) x1 Varicella zoster unsure Visual impairment w/ [...] Procedure Laterality Date APPENDECTOMY 05/2016 at [facility] [place] DILATION AND CURETTAGE [...] nursing note reviewed. Exam conducted with a metal polisher and buffer apprentice present. Vitals: Estimated body mass index is [...] patient and patient given direct extension to Manager Entry for any questions/concerns pertaining to fertility. Documented by Christa Yanes LPN on behalf of: Nathan Pop DO documented in this encounter [facility] 12-30-2024 History of Presen t illness Narrative [...] Procedure Laterality Date APPENDECTOMY 05/2016 at [facility] [place] DILATION AND CURETTAGE 12/2022 retained placenta DISTAL CLAVICLE EXCISION Right 07/2018 Shoulder - open - DAP LAPAROSCOPY DIAGNOSTIC / BIOPSY / ASPIRATION / LYSIS 02/2019 endometriosis, 2020 LAPAROSCOPY DIAGNOSTIC / BIOPSY / ASPIRATION / LYSIS 02/29/2024 SHOULDER SURGERY Right open distal clavicle excision-DAP VAGINAL DELIVERY 11/2022 Social History: Social Drivers of Optiant Tobacco Use: Low Risk (12/30/2024) Patient History [...] min Stress: No Stress Concern Present (12/29/2024) [place] [employer] - Occupational Stress Questionnaire Feeling of Stress : Only a little Social Connections: Unknown (12/29/2024) Social Connection and Isolation Panel [NHANES] Frequency of Communication with Friends and Family: More than three times a week Frequency of Social Gatherings with Friends and Family: Once a week Attends [employer] Services: Patient declined Active Member of Clubs [...] with the patient today. Current Outpatient Medications: qrjllraumz-vpvlbwibszrkp-tfftsq ne 50-325-40 MG tablet, Take 1 tablet by mouth every 6 (six) hours if needed for headaches, Disp: 20 tablet, Rfl: 0 desogestrel-ethinyl estradiol (Apri) 0.15-30 MG-MCG tablet, Take 1 tablet by mouth Daily, Disp: 21 tablet, Rfl: 12 metoprolol succinate XL (Toprol-XL) 25 MG 24 hr tablet, Take 1 tablet by mouth daily, Disp: 90 tablet, Rfl: 1 documented in this encounter [facility] 08-18-2024 History of Presen t illness Narrative Reason for Appointment: Patient ID: Driss Cope is a 29 y.o. female who presents for Well Women Visit Patient presents today for Annual Exam. MEDICATIONS Current Outpatient Medications Medication Instructions otcglijvjf-zhvllvwfnbhsv-cbvxou ne 50-325-40 MG tablet 1 tablet, Oral, [...] Procedure Laterality Date APPENDECTOMY 05/2016 at [facility] [place] DILATION AND CURETTAGE [...] nursing note reviewed. Exam conducted with a metal polisher and buffer apprentice present. Vitals: Estimated body mass index is [...] Zenobia Gutierrez PA-C documented in this encounter [facility] 07-22-2024 History of Presen t illness Narrative Reason for Appointment: Patient ID: Driss Cope is a 29 y.o. female who presents for Dysmenorrhea Patient presents today for Acute Visit. MEDICATIONS Current Outpatient Medications Medication Instructions xpzxstodmv-zsyrwxszpkmal-byjtnu ne 50-325-40 MG tablet 1 tablet, Oral, [...] 03/29/2023 Pain on swallowing 03/29/2023 Panic disorder ([facility]/HCC) 03/29/2023 Patellofemoral disorders, left knee 03/29/2023 Patellofemoral disorders, right knee 03/29/2023 Posterior calcaneal exostosis 03/29/2023 Scapular dyskinesis 03/29/2023 Scoliosis 03/29/2023 Seasonal allergic rhinitis due to pollen 03/29/2023 Tachycardia, paroxysmal ([facility]) 03/29/2023 Tension headache 03/29/2023 Vitamin [...] Headache History of menstrual cramps severe Hypertension ([facility]) x1 Varicella zoster unsure Visual impairment w/ [...] Procedure Laterality Date APPENDECTOMY 05/2016 at [facility] [place] DILATION AND CURETTAGE [...] nursing note reviewed. Exam conducted with a metal polisher and buffer apprentice present. Vitals: Estimated body mass index is [...] Nathan Pop DO documented in this encounter [facility] 04-29-2024 Telephone encounter Note Received message from albert Webb to cancel surgery and all appts as pt had services elsewhere [facility] 04-29-2024 Miscellaneous Notes Received message from albert Webb to cancel surgery and all appts as pt had services elsewhere documented in this encounter [facility] 04-25-2024 Telephone encounter Note Pt got in sooner for surgery with 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 Please cancel surgery and all pre and post op appts. [facility] 04-25-2024 Miscellaneous Notes Pt got in sooner for surgery with 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 Please cancel surgery and all pre and post op appts. documented in this encounter [facility] 01-10-2024 History of Presen t [...] Procedure Laterality Date APPENDECTOMY 05/2016 at [facility] [place] DILATION AND CURETTAGE [...] nursing note reviewed. Exam conducted with a metal polisher and buffer apprentice present. Vitals: Estimated body mass index is [...] Nathan Pop DO documented in this encounter [facility] 01-03-2024 Miscellaneous Notes Refill(s) request: Requested Prescriptions [...] mg tablet Class: Normal Route: ORAL Order: [id number] E-Prescribing Status: Receipt confirmed by pharmacy (05/17/2023 [...] that may recur and often requires a watermaster treatment plan. Once endometriosis is identified, there [...] Department Center 05/20/2024 10:00 AM Kevin Pires Flight Crew Time Clerk Nurse [facility] 06/23/2024 10:30 AM Charlene Rodriguez DO [facility] Appointment scheduled: As listed above Action taken: Refill request routed to clinician Pippa Simon RN January 03, 2024 4:29 PM Patient: Driss Cope : 1995 Provider: Charlene Rodriguez DO Caller Phone #: [phone] (home) [phone] (cell) Reason for call: b/c refill Message routed to nurse triage Date of next visit: MEGAN: 12/10/2023 documented in this encounter [facility] 12-10-2023 Note HNO ID: [id number] Author: CHARLENE RODRIGUEZ DO Service: ? 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 [facility] 09-12-2023 Hospital Discharg e instructions Patient Education [...] Follow these instructions at home: Medicines Take tewj-rtx-lfgghgc and prescription medicines only as told by [...] buy a blood pressure monitor at most [employer] or online. Where to find more information [employer]: www.heart.org Contact a health care [...] provider. Document Revised: 07/27/2022 Document Reviewed: 07/27/2022 [employer] Patient Education 2022 [employer]. 09/12/2023 18:18:13 Hypertension, Adult, Hbvk-qc-Miyy Hypertension, Adult Hypertension is another name for [...] doctor. Keep all follow-up visits. Medicines Take zlye-zfu-hczvufo and prescription medicines only as told by [...] provider. Document Revised: 08/31/2022 Document Reviewed: 08/31/2022 [employer] Patient Education 2022 [employer] 09/12/2023 18:18:13 General Headache Without Cause, Fsru-zx-Crwp General Headache Without Cause A headache is pain or discomfort you feel around the head or neck area. There are many causes and types of headaches. In some cases, the cause may not be found. Follow these instructions at home: Watch your condition for any changes. Let your doctor know about them. Take these steps to help with your condition: Managing pain Take matf-woi-heyafnd and prescription medicines only as told by [...] provider. Document Revised: 04/12/2022 Document Reviewed: 04/12/2022 [employer] Patient Education 2022 [employer]. Follow Up Care 09/12/2023 17:21:57 With:CRUZ RODRÍGUEZ [facility] [place] [address] Business (1) When:09/15/2023 18:03:37 Comments:Follow-up with your primary care provider in 3 to 5 days. If symptoms worsen, do not improve, or new symptoms arise please report back to emergency department for further evaluation. [facility] 09-12-2023 Evaluation + Plan note Extrac [...] date 09/12/23 18:02:00 EDT, 09/12/23 18:02:00 EDT [facility]10-16-2023 Instructions* Patient Instructions* Srinivasa Downs APRN.CNP - 09/10/2023 9:52 AM EDT Plan: Trial baclofen suppositories - can switch to pill vaginally if suppositories are not affordable Consider Pelvic floor physical therapy - can find local provider [email or web address] Consider going back to see Dr Michael Downs APRN.CNP documented in this encounterHolmes [facility]10-[facility]-2023 NoteHNO ID: [id number] Author: Charlene Rodriguez DO Service: ? Author Type: Physician Type: Progress Notes Filed: 08/30/2023 11:15 AM Note Text: Tramadol rx sent to pharmacy.[facility]10-05-2023 History of Present illness Narrative* Charlene Rodriguez DO - 08/30/2023 11:13 AM EDT Tramadol rx sent to pharmacy. documented in this encounterHolmes County [facility]10-05-2023 Miscellaneous Notes* Telephone Encounter - Chelsie Dueñas RN - 08/30/2023 10:50 AM EDT Last office visit: 08/24/2023 Assessment and Plan No diagnosis found. Trial baclofen suppositories Will send list of PTs Consider going back to Michael SIGNATURE: Srinivasa Downs APRN.RFP WRITER Office visit with Dr. Rodriguez 07/16/2023 IMPRESSION: [...] plan. Charlene Rodriguez DO documented in this encounterHolmes County [facility]09-29-2023 NoteHNO ID: [id number] Author: Srinivasa Downs APRN.RFP WRITER Service: ? Author Type: Nurse Practitioner Type: Progress Notes Filed: 09/10/2023 9:53 AM Note Text: [facility] of Benign Gynecology [facility] PATIENT NAME: Driss Cope DATE: 08/24/2023 Patient Name and verified: Yes Patient Location: [place] This Virtual Visit was completed using My Chart Zoom platform. I have communicated my name and active licensure. The patient's identity and physical location were verified at the time of this visit. Either the patient or their legal medical claims representative has been informed of the risks [...] appointment yet. 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 [facility] Benign Gyne[facility] PATIENT NAME: Driss Cope DATE: 08/24/2023 Patient Name and verified: Yes Patient Location: [place] This Virtual Visit was completed using My Chart Zoom platform. I have communicated my name and active licensure. The patient's identity and physical location wereverified at the time of this visit. Either the patient or their legal medical claims representative has been informed of the risks [...] appointment yet. 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 Please call [phone] Message routed to nurse triage Date of next visit: documented in this encounterHolmes County [facility]09-07-2023 Miscellaneous Notes* Telephone Encounter - Christa Suárez RN - 08/02/2023 11:29 AM EDT PA for orilissa completed via Cover MyMeds. Driss Cope (Morales: [id number]) - [id number] Orilissa 150MG tablets Status: Sent To Plan [...] too. Please advise. Thanks. documented in this encounterHolmes County [facility]08-21-2023 NoteHNO ID: [id number] Author: Charlene Rodriguez, DO Service: ? 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 Author Type: Consulting Intern Type: Progress Notes Filed: 06/12/2023 4:32 PM [...] BY: RT Claudia(Bryant) June 12, 2023 4:32 [facility]CWestern [facility]07-[facility]-2023 NoteHNO ID: [id number] Author: Boo Singh RN Service: Nursing Author [...] Cope DATE: June 12, 2023 TIME: 1:43 [facility]06-22-2023 NoteHNO ID: [id number] Author: Charlene Rodriguez, DO Service: ? 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 Charlene Rodriguez DO Tt: 20 minutesChildren[facility]06-22-2023 History of Present illness Narrative* Charlene Rodriguez DO - 05/17/2023 1:05 PM EDT Images from the original note were not included. 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 Biggest complaint is cramping. Has had 3 periods of bleeding recently - 04/22/2023 LMP, last a few days, 05/04-05/10 bleeding again 05/11/2023 started again today. Takes aygestin 5mg daily. She did not pickle cutter flexeril. Encourage to pickle cutter the flexeril as this will help with the cramping. Reviewed red flag bleeding symptoms that require trip to ER (soaking greater than one overnight padper hour, chest pain, shortness of breath, fatigue, palpitations).. Advised keep appt. Gives verbal understanding. Appointments for Next 60 Days Date Time Provider Location Dept Phone 05/17/2023 1:00 PM CHARLENE RODRIGUEZ [facility] [phone] Christa Suárez RN * Telephone Encounter - Tawana Nair [facility] - 05/11/2023 1:19 PM EDT Reason for call: other - Vaginal bleeding Provider name: Dr Rodriguez Additional comments: patient having more vaginal bleeding and concerned she is getting worse. Recommendation: routed to nurse triage pool documented in this encounterHolmes County [facility]06-06-2023 Instructions* Patient Instructions* Srinivasa Downs APRN.CNP - 05/01/2023 11:47 AM EDT Plan Pelvic floor physical therapy - or can go locally pelvicFashion For Home.[facility] [facility] Home Trial flexeril at bedtime Can consider Baclofen [...] pelvic pain society ([email or web address].org) documented in this encounterHolmes County [facility]06-06-2023 History of Present illness Narrative* Srinivasa Downs APRN.RFP WRITER - 05/01/2023 10:30 AM EDT Driss Cope is a 28 year old female who presents for problem visit for pain HPI: Pain is week before period and week of period. Worse on her period for every day she's bleeding Urinary - No symptoms GI - Always constipated. No meds Laplace - painful always Pain is on left side and goes to the back. Whole lower back. Sometimes on right but not very often. No concerns No falls, car accidents, scoliosis. No trauma history Endo. 2 lap - 2016, 2020 - pain improved after surgery In the past Aygestin had helped No Pelvic floor physical therapy. Dr Rodriguez recommend but hasn't been able to go. Tore with delivery but doesn't think it was bad. Here with a friend and her baby. They are present for the entire exam OB History T0 L0 SAB0 IAB0 Ectopic0 Multiple0 Live Births0 [employer] Time [employer] History LMP: 03/26/2023 (Approximate), Having periods Age at Menarche: Age at First : Age at Menopause: [employer] Time Clerk History Comments: Sexual Activity: Never; No [...] physical therapy - or can go locally pelvicProspectvisionabHelioVolt Trial flexeril at bedtime Can consider Baclofen suppositories Continue Norethindrone - can take up to 3 months for it to stop periods, take at same time every day Relaxation techniques Srinviasa Downs APRN.CNP Medical Decision Making: Problems: Moderate: New problem with uncertain prognosis Data: Unique source(s) for external note(s) reviewed: 1 Unique test result(s) reviewed: 1 Risk: Moderate: Drug management Medical Decision Making Level: 4 - Moderate documented in this encounterHolmes County [facility]06-06-2023 NoteHNO ID: [id number] Author: Srinivasa Downs APRN.CNP Service: ? Author Type: Nurse Practitioner Type: Progress Notes Filed: 05/09/2023 11:46 AM Note Text: Driss Cope is a 28 year old female who presents for problem visit for pain HPI: Pain is week before period and week of period. Worse on her period for every day she's bleeding Urinary - No symptoms GI - Always constipated. No meds Laplace - painful always Pain is on left [...] L0 SAB0 IAB0 Ectopic0 Multiple0 Live Births0 [employer] Time Clerk History LMP: 03/26/2023 (Approximate), Having periods Age at Menarche: Age at First : Age at Menopause: Flight [employer] Time Clerk History Comments: Sexual Activity: Never; No [...] physical therapy - or can go locally [place] Trial flexeril at bedtime Can consider Baclofen suppositories Continue Norethindrone - can take up to 3 months for it to stop periods, take at same time every day Relaxation techniques Srinivasa Downs APRN.ANA LAURA Medical Decision Making: Problems: Moderate: New problem with uncertain prognosis Data: Unique source(s) for external note(s) reviewed: 1 Unique test result(s) reviewed: 1 Risk: Moderate: Drug management Medical Decision Making Level: 4 - ModerateChildren[facility]05-[facility]-2023 Miscellaneous Notes* Telephone Encounter - Marilee Valdez [...] months. Lucila Foss RN documented in this encounterHolmes County [facility]03-08-2023 Hospital Discharge instructions Patient Education [...] told by your health care provider. Take sxyu-uap-bbfvgwo and prescription medicines only as told by [...] 01/03/2007 Document Revised: 10/25/2018 Document Reviewed: 01/25/2018 [employer] Patient Education 2020 [employer]. Follow Up Care 01/31/2023 13:43:01 With:Cruz Meza Address:Unknown When:02/03/2023 18:59:31 Comments:Follow-up for evaluation of hypertension in context of known preeclampsia in the period With:CRUZ RODRÍGUEZ Address: [address] [place] [address]- Business (1) When:Within 3 Day(s) [facility]03-08-2023 Evaluation + Plan noteExtracted from: Title:ED Note Author:Mayur Mabry PA-C e:01/31/23 Flank pain (R10.9: Unspecifi ed abdominal pain) Headache (R51.9: Headache, unspecified) Orders: CTA Chest Hepatic Function Panel [facility]02-04-2023 Hospital Discharge instructions Patient Education 12/30/2022 13:59:51 MANAGER BOOK - Post D&C, Hysteroscopy, LEEP or Essure/Laparoscopy [...] Instructions - FT (Custom) (Custom) 12/30/2022 13:55:16 MANAGER BOOK - Post D&C, Hysteroscopy, LEEP or Essure/Laparoscopy [...] With:Cruz Meza Address: [address], [address] [address]- Business (1) When: Unknown Comments:follow up in 1-2 weeks With:CRUZ RODRÍGUEZ Address: [address] [place] [address] Business (1) When:01/02/2023 09:21:18 [facility]02-04-2023 Evaluation + Plan noteExtracted from: Title:ANES Post-operative Note Author:Kenneth Agustin MD Date:12/30/22 Plan Transfer/Discharge: Transfer/Discharge Discharge when meets criteria ( From PACU to Ambulatory Surgery Unit, and To home ). Extracted from: Title:Gynecology Visit * Author:Nathan POP DO Date:12/30/22 Impression and Plan retained products of conception, s/p 4wks-ultrasound reviewed, discussed options with patient, conservative tx vs surgical tx, consent obtained, mmc reviewed, procedure reviewed, Extracted from: Title:ANES Pre-operative Note Author:Vamsi BLACKWELL, Bryant Barron Date:12/30/22 Plan [place] [employer]esthesiologists (ASA) physical status classification: [...] With Cult Reflex US Pelvis Non-OB Complete [facility]01-10-2023 History of Present illness Narrative* Tory [...] Ross MD - 12/05/2022 3:19 PM EST [facility]: This patient was seen in the [facility] by the resident. I reviewed and agree with the care provided by the resident during or immediately following the visit including the patient's medical history, the resident's finding in the physical exam, patient's diagnosis and treatment plan. documented in this [facility]01-07-2023 NoteDepartment of Obstetrics and Gynecology Delivery Discharge Summary Admission on 11/28/2022 12:24 AM Hospital course: Driss Cope at 35w1d admitted as a transfer from [facility]. She was started on Magnesium there and [...] & Procedures: Information for the patient's : Megan CopeMark Anthonysudha [[id number]] female 2425 g (5 lb 5.5 oz) Apgars: Information for the patient's : Francie Cope [[id number]] : : Girl Blood Type/Rh: O Antibody [...] Your Medications These medications were sent to [facility] [address] [place] [address] Hours: Sunday to Sunday 10 am to 6 pm docusate sodium 100 MG capsule ibuprofen 600 MG tablet NIFEdipine XL 30 MG 24 hr tablet Activity: Activity as tolerated Diet: Regular diet Follow-up Appointments: - visit - Blood pressure check If a patient meets criteria for hypertension, make sure the following are done prior to discharge: [] Order a blood pressure kit through [facility] (or the patient's own pharmacy on the weekend) [] Order the blood pressure log through [employer] [x] Place an office visit or telephone [...] notify her physician if any of these occur.[facility]01-07-2023 History of Present illness Narrative* Anna Booth [...] discharge. Will make patient aware. * Vanessa Vale, - 12/02/2022 5:09 AM EST Images from [...] - VAGINAL DELIVERY POST DAY #1 Driss Stephensifeoma, 27 y.o. This patient was seen & [...] so chooses. Provider's Name: Ritu RyderDO TONIA DO 12/01/2022, 5:32 AM Attestation Statement I [...] with more than 50% of the total ocbd-rl-znow time of the visit in counseling/coordination of [...] be monitored and followed by the diet certified control systems technician. CRISS Oshea * Alejandra Arcos RN - 11/30/2022 11:30 [...] placed at this time. Cat I. PRINCE JOSE ANTONIO, DO 11/28/2022 2:15 AM 2.d cytotec placed at this time. Cervix unchanged. FHT cat II for periods of minimal variability. Pt resting comfortably in bed. Per Dr. Tran, continue cytotec and defer FB until 2 cm. Cytotec x3 placed at this time. FHT cat I and reassuring. CCM. Cx:1/70/-3 FHT: Cat 1 [place]:q3-4 min A/P: 1. IOL-PreEwSF. FHT 130 baseline, with moderate variability, Accelerations present Yes, and rare late deceleration . Cervical exam unchanged. Cytotec x4 placed at this time. Patient intermittently feeling contractions. BP mild range. Cx: 1-270/-3 FHP: defer FHT: Cat I [place]: a3-4min A/P: 1. IOL-PreEwSF: FHT Category I, [...] Cx: unchanged FHP: defer FHT: Cat I [place]: q4min A/P: 1. IOL-PreEwSF: FHT Category I, [...] 11/29/2022 6:17 AM Cx:1-260/-3 FHT: Cat I [place]:q4-5mins A/P: 1. IOL-PreEwSF: Cat I FHT with [...] per protocol. CCM. Cx:defer FHT: Cat I [place]:q4-6mins A/P: 1. IOL-PreEwSF: Cat I FHT with baseline 120, moderate variability, spontaneous accelerations, and no decelerations. BP normotensive to mild range since last note time. Pitocin @ 2 cc/hr, continue to titrate per protocol. Magnesium sulfate running for seizure prophylaxis, UOP 400 ml over past 4hours. CCM. Cx:defer FHT: Cat I [place]:q4-5mins A/P: 1. IOL-PreEwSF: Cat I FHT with baseline 135, moderate variability, spontaneous accelerations, and no decelerations. BP normotensive to mild range since last note time. Pitocin @ 6 cc/hr, continue to titrate per protocol. Magnesium sulfate running for seizure prophylaxis, UOP 600 ml over past 4hours. Will plan for AROM soon. CCM. Cx:defer FHT: Cat I [place]:irritability A/P: 1. IOL-PreEwSF: Pit @ 8 mu/min. Patient resting comfortably and only irritability tracing on toco. BP most recently mild range. On magnesium sulfate for seizure prophylaxis. UOP adequate. Continue magnesium and continue to titrate pitocin per protocol. Plan for AROM once patient rudi more regularly. Electronically signed by Cortney Velasquez DO 11/29/2022 4:21 PM Cx:/-3 FHT: Cat 1 [place]:Not tracing A/P: 1. IOL-PreEwSF. FHT 135 baseline, with moderate variability, Accelerations present Yes, and nodecelerations seen . AROM at this time for moderate amount blood tinged fluid. Pitocin at 8cc/hr. Maternal BP mild range. On Magnesium for Seizure prophylaxis. Patient with adequate urinary output. [facility]. Cx: defer FHP: defer FHT: Cat II [place]: not tracing well A/P: 1. IOL-PreEwSF: FHT Category II for brief period of lates vs early deceleration prior to epidural placement, with moderate variability, accelerations present, and decelerations present. Blood pressure NT. Pit @ 8 ml/hr. Just got epidural placed. Plan for eventual SVE and possible IUPC placement if unchanged. PRINCE BRADY DO 11/29/2022 6:45 PM Cx: 6/80/-1 per RN FHP: defer FHT: Cat II [place]: q4min A/P: 1. IOL-PreEwSF: FHT Category II [...] pushes. Cassie Constantino MD 11/30/2022 1:09 AM 11/30 See delivery note for details documented in this [facility]01-07-2023 Hospital course Narrative* César Tran DO - 12/02/2022 12:32 PM EST Images from the original note were not included. Department of Obstetrics and Gynecology Delivery Discharge Summary Admission on 11/28/2022 12:24 AM Hospital course: Driss Cope at 35w1d admitted as a transfer from [facility]. She was startedon Magnesium there and transported [...] Information for the patient's : Francie Cope [[id number]] female 2425 g (5 lb 5.5 oz) Apgars: Information for the patient's : Francie Cope [[id number]] : : Girl Blood Type/Rh: O Antibody [...] Your Medications These medications were sent to [facility] [address] [place] [address] Hours: Sunday to Sunday 10 am to 6 pm docusate sodium 100 MG capsule ibuprofen 600 MG tablet NIFEdipine XL 30 MG 24 hr tablet Activity: Activity as tolerated Diet: Regular diet Follow-up Appointments: - visit - Blood pressure check If a patient meets criteria for hypertension, make sure the following are done prior to discharge: [] Order a blood pressure kit through [facility] (or the patient's own pharmacy on the weekend) [] Order the blood pressure log through [facility] [x] Place an office visit or telephone [...] any of these occur. documented in this [facility]01-06-2023 Note* Care Coordination - Christine Michelle [...] home. Denies any concerns at this time. [facility] [id number] Note* Care Coordination - Christine Michelle RN [...] home. Denies any concerns at this time. [facility] [id number] Miscellaneous Notes* Care Coordination - Christine Michelle [...] to use and to bring to [facility] * Note - Sheila Harrell RN - 11/30/2022 10:30 AM EST Breast pump use indicated for this pt. Due to: in [facility] breast pump, supplies kit, swabs and [...] Told patient to check with LC in [facility] for smaller flange sizes * L&D Delivery Note - Irina Kramer DO - 11/30/2022 4:04 AM EST Images from the original note were not included. Vaginal Delivery Note Department of Obstetrics and Gynecology Patient: Driss Cope : 1995 Date of delivery: 11/30/2022 Pre-operative Diagnosis: Driss Mojica0 at 35w1d 1. <37 weeks 2. PreEwSF Post-operative Diagnosis: Live Born female Delivering Manager Program & Media Analyst(s): Dr. Bowden; Dr. Kramer Infant Information: Information for the patient's : Francie Cope [[id number]] Information for the patient's : Francie Cope [[id number]] Description: normal Meconium Noted: No Anesthesia: epidural [...] Status: No results found for: RUBELLAMILADYG Irina DO Nia 11/30/2022, 4:04 AM Associated attestation - Carol Bowden MD - 12/01/2022 8:22 AM EST Procedures or Surgery: I was present for all morales elements of the procedure or surgery as described in the resident note. * Care Plan - Clotilde Mg RN - 11/29/2022 7:45 AM EST The patient will continue to make cervical change. Clotilde Mg RN documented in this [facility]01-06-2023 Obstetrics Note* Note - Ligia Bridges RN - 12/01/2022 9:00 AM EST 22.5mm flanges given to patient. Encouraged her to call for observation of pump session and smallerflanges. Martha in NICU to assist with personal pump. [id number] [facility] Discharge instructions* Discharge Instructions* Carol Bowden [...] as 8 weeks after delivery. Bleeding may pickle cutter and then decrease again around 7-10 days [...] have thoughts of harming yourself or your . If will not stop crying, contact another adult for help or place infant in their crib on their back and take a break. NEVER shake your infant. WOUND CARE For Vaginal Delivery: Shower daily, [...] hand express some milk so that the can latch on more easily or ease [...] avoid constipation you may take a mild tjhs-pug-krsycoo stool softener (such as colace) as recommended [...] can increase risks of asthma and sudden syndrome. Ifyou or someone around baby smokes [...] positive or a Person Under Investigation (PUI) Lzypiv-iw-jhfdl transmission of COVID-19 during is unlikely, but after a baby is susceptible to zvdgys-lg-wyrxco spread. After your baby is born, your [...] clean your hands with an alcohol-based hand plant protection superintendent that contains at least 60% alcohol. Clean your hands often Wash your hands often with soap and water for at least 20 seconds, especially after blowing your nose, coughing, or sneezing; going to the bathroom; and before eating or preparing food. If soap and water are not readily available, use an alcohol-based hand plant protection superintendent with at least 60% alcohol, covering all [...] healthcare provider to call the local or state health department. Persons who are placed underactive [...] isolation precautions should be made on a epdy-ih-eyqp basis, in consultation with healthcare providers and [facility] local health departments. Information on COVID-19 for ALL [...] respiratory tract signs and symptoms. Ways to [place] with Anxiety & Stress It is normal [...] an illness that was first found in [facility], in October 2019. It has since spread [...] seen in people before. This virus spreads zfuqri-ta-sbqwub through droplets from coughing and sneezing. It [...] water aren't available, use an alcohol-based hand plant protection superintendent. Call 911 anytime you think you may [...] as of: February 25, 2020 Content Version: 12. [employer]. Care instructions adapted under license by your healthcare professional. If you have questions about a medical condition or this instruction, always ask your healthcare professional. [employer] disclaims any warranty or liability for your use of this information. General Recommendations for Routine Cleaning and Disinfection of Households Community members can practice routine cleaning of frequently touched surfaces (for example: tables, doorknobs, light switches, handles, desks, toilets, faucets, sinks) with household service mechanic and EPA-registered disinfectants that are appropriate for [...] appropriate. These supplies include tissues, paper towels, service mechanic and EPA-registered disinfectants (see list link at [facility] website). If a separate bathroom is not [...] be used for other purposes. Consult the psychological tests sales agent's instructions for cleaning and disinfection products used. [...] used if appropriate for the surface. Follow psychological tests sales agent's instructions for application and proper ventilation. Check [...] water Products with EPA-approved emerging viral pathogens [facility] iconexternal icon are expected to be effective against COVID-19 based on data for harder to kill viruses. Follow the psychological tests sales agent's instructions for all cleaning and disinfection products (e.g., concentration, application method and contact time, etc.). Soft (porous) surfaces such as carpeted floor, rugs, and drapes Remove visible contamination if present and clean with appropriate service mechanic indicated for use on these surfaces. After cleaning: Launder items as appropriate in accordance with the psychological tests sales agent's instructions. If possible, launder items using the [...] items as appropriate in accordance with the psychological tests sales agent's instructions. If possible, launder items using the warmest appropriate water setting for the items and dry items completely. Dirty laundry from an ill person can be washed with other people's items. Clean and disinfect clothes hampers according to guidance above for surfaces. If possible, considerplacing a garbage pick up man that is either disposable (can be thrown away) or can be laundered. CDC has a list of EPA approved cleaning products on their website - https://www.cdc.gov/coronavirus/ 2019-ncov/community/home/cleaning-disinfection.html https://www.MessageOne/Zrvwt-Clmcswzezyh-Sspjtine-Products-List.pdf [employer] Stores with delivery and pickle cutter services: [employer] Soil: Free pickle cutter at locations Delivery is $12.95 a month Website - Module[employer] Arnett: Campus Recruiter $2.95 (1st order is free) Delivery is $14.95 Website - DeliveryEdge Cheesh-Na: solution make up operator is free Delivery is $5.95 Website - Hotel [employer]ger: solution make up operator is $4.95 Delivery is $9.95 Website [employer] Meijer: solution make up operator is $4.95 Delivery is $9.95 Website [employer]ged [employer].rHelioVolt Whole Foods Market: Can be ordered for delivery and pickle cutter with ZEEF.com Website - www.[employer] Aldi: Free deliver for first 3 orders of $35 or more Website - aldi.[employer] Will deliver from [employer], Me[employer], Pet[employer], and Target. Annual membership is $99 Monthly membership is $14 * Attachments The following attachments cannot be sent through Care Everywhere. * Preeclampsia Discharge Instructions (Mauritian) documented in this encounterSOhio[facility] [id number] Obstetrics Note* Note - Sheila Harrell RN - 11/30/2022 10:37 AM EST Swabs given to patient and educated how to use and to bring to CRISTIAN [facility] [id number] Obstetrics Note* Note - Sheila Harrell RN - 11/30/2022 10:30 AM EST Breast pump use indicated for this pt. Due to: in [facility] breast pump, supplies kit, swabs and [...] encourage and support patient. Script sent to mommy express and info given to patient Educated patient that she will most likely need 21 or 19 mm flanges for home pump and how to measure flange size for home pump Told patient to check with LC in [place]N for smaller flange sizes [facility] [id number] NotePatient: Driss Cope Procedure Summary Date: 11/29/22 [...] discharged once all PACU criteria has been met.[facility]01-05-2023 NotePatient: Driss Cope Procedure Summary Date: [...] Allowed opportunity for questions and acknowledgement of understanding.[facility]01-05-2023 Labor and delivery summary note* L&D Delivery Note - Irina Kramer DO - 11/30/2022 4:04 AM EST Images from the original note were not included. Vaginal Delivery Note Department of Obstetrics and Gynecology Patient: Driss Cope : 1995 Date of delivery: 11/30/2022 Pre-operative Diagnosis: Driss Mojica0 at 35w1d 1. <37 weeks 2. PreEwSF Post-operative Diagnosis: Live Born female Delivering Manager Program & Media Analyst(s): Dr. Bowden; Dr. Kramer Infant Information: Information for the patient's : Francie Cope [[id number]] Information for the patient's : Francie Cope [[id number]] Description: normal Meconium Noted: No Anesthesia: epidural [...] Rubella Immunity Status: No results found for: JULIANELLATAMMI Kramer DO 11/30/2022, 4:04 AM Associated attestation - Carol Bowden MD - 12/01/2022 8:22 AM EST Procedures or Surgery: I was present for all morales elements of the procedure or surgery as described in the resident note. [facility] [id number] NoteEpidural Block Time Out: 11/29/2022 6:17 PM Patient location during procedure: OB Start time: 11/29/2022 6:18 PM End time: 11/29/2022 6:45 PM Reason for block: labor analgesia Staffing Performed: ADJUNCT SOCIOLOGY PROFESSOR Resident/ADJUNCT SOCIOLOGY PROFESSOR: Jimmie Kaur APRN - JASMYN Preanesthetic Checklist [...] saline Guidance: landmark technique Needle Needle type: Justinmindming Needle gauge: 17 G Needle length: 9 cm Needle insertion depth: 5 cm Catheter type: multi-orifice Catheter size: 19 G Catheter at skin depth: 10 cm Catheter securement method: surgical tape, liquid medical adhesive and clear occlusive dressing Test dose: negative Assessment Sensory level: T10 Block outcome: pain improved Number of attempts: 1 Procedure assessment: patient tolerated procedure well with no immediate complicationsHavenwyck Hospital01-04-2023 Plan of care note* Care Plan - Clotilde Mg RN - 11/29/2022 7:45 AM EST The patient will continue to make cervical change. Clotilde Mg RN [facility] [id number] NotePatient: Driss Cope Procedure Information Date: 11/28/22 [...] products. patient is not NPO Additional Equipment [facility]01-03-2023 NoteLabor Progress Note Date: 11/28/2022 Time: 2:14 [...] and reassuring. CCM. Cx:/-3 FHT: Cat 1 [place]:q3-4 min A/P: 1. IOL-PreEwSF. FHT 130 baseline, with moderate variability, Accelerations present Yes, and rare late deceleration . Cervical exam unchanged. Cytotec x4 placed at this time. Patient intermittently feeling contractions. BP mild range. Cx: 1-/-3 FHP: defer FHT: Cat I [place]: a3-4min A/P: 1. IOL-PreEwSF: FHT Category I, [...] Cx: unchanged FHP: defer FHT: Cat I [place]: q4min A/P: 1. IOL-PreEwSF: FHT Category I, with moderate variability, accelerations present, and decelerations absent. Blood pressure mild. UOP adequate. Cytotec #6 placed at this time. Magnesium running for seizure prophylaxis. PRINCE BRADYDO 11/29/2022 1:42 AM Cat I for past 4 hours. Cytotec time is up. Although discussed with Dr Keita patient will eat breakfast at this time. Plan for SVE after. PRINCE BRADYDO 11/29/2022 6:17 AM Cx:1-2/60/-3 FHT: Cat I [place]:q4-5mins A/P: 1. IOL-PreEwSF: Cat I FHT with [...] per protocol. CCM. Cx:defer FHT: Cat I [place]:q4-6mins A/P: 1. IOL-PreEwSF: Cat I FHT with baseline 120, moderate variability, spontaneous accelerations, and no decelerations. BP normotensive to mild range since last note time. Pitocin @ 2 cc/hr, continue to titrate per protocol. Magnesium sulfate running for seizure prophylaxis, UOP 400 ml over past 4 hours. CCM. Cx:defer FHT: Cat I [place]:q4-5mins A/P: 1. IOL-PreEwSF: Cat I FHT with baseline 135, moderate variability, spontaneous accelerations, and no decelerations. BP normotensive to mild range since last note time. Pitocin @ 6 cc/hr, continue to titrate per protocol. Magnesium sulfate running for seizure prophylaxis, UOP 600 ml over past 4 hours. Will plan for AROM soon. CCM. Cx:defer FHT: Cat I [place]:irritability A/P: 1. IOL-PreEwSF: Pit @ 8 mu/min. Patient resting comfortably and only irritability tracing on toco. BP most recently mild range. On magnesium sulfate for seizure prophylaxis. UOP adequate. Continue magnesium and continue to titrate pitocin per protocol. Plan for AROM once patient rudi more regularly. Electronically signed by Cortney Velasquez DO 11/29/2022 4:21 PM Cx:/-3 FHT: Cat 1 [place]:Not tracing A/P: 1. IOL-PreEwSF. FHT 135 baseline, with moderate variability, Accelerations present Yes, and no decelerations seen . AROM at this time for moderate amount blood tinged fluid. Pitocin at 8cc/hr. Maternal BP mild range. On Magnesium for Seizure prophylaxis. Patient with adequate urinary output. CCM. Cx: defer FHP: defer FHT: Cat II [place]: not tracing well A/P: 1. IOL-PreEwSF: FHT Category II for brief period of lates vs early deceleration (more content not included)...[facility]01-03-2023 NoteObstetrical History and Physical CHIEF COMPLAINT: [...] 34w6d Is this patient being delivered between 14e1v-78o2z weeks with an acceptable medical indication (obstetric, maternal, and/or )? NA: Not Applicable: This patient is being delivered outside of the PC-01 range (71o5p-48q7v) for reasons indicated in the medical record. [...] VTE Prophylaxis: Not Indicated (more content not included)...[facility]01-03-2023 History and physical note* Cassie Constantino MD [...] 34w6d Is this patient being delivered between 11l2i-51x7m weeks with an acceptable medical indication (obstetric, maternal, and/or )? NA: Not Applicable: This patient is being delivered outside of the PC-01 range (59n0e-42w2r) for reasons indicated in the medical record. [...] plan. Cassie Constantino MD 11/28/2022, 12:48 AM [facility] [id number] History and physical note* Cassie Constantino MD [...] 34w6d Is this patient being delivered between 16e5v-08y5a weeks with an acceptable medical indication (obstetric, maternal, and/or )? NA: Not Applicable: This patient is being delivered outside of the PC-01 range (55k6k-28d5d) for reasons indicated in the medical record. [...] MD 11/28/2022, 12:48 AM documented in this [facility]01-02-2023 Evaluation + Plan note Extracted from: Title:OB High Risk Antepartum Visit * Author:WINSOME PRESCOTT MD [place] Date:11/27/22 Impression and Plan Diagnosis 34 weeks 5 days. Preeclampsia. contractions. Maternal tachycardia.. Course: Worsening, New onset headache may be a signal of worsening symptoms of preeclampsia.. Orders I discussed this case with the maternal- medicine department at [facility], Dr. Thea Nieves, she accepted to transfer due to preeclampsia. Plan: Magnesium sulfate per protocol, betamethasone, transfer arrangements are in progress.. [facility]08-19-2022 Evaluation + Plan noteExtracted from: Title:ED [...] Colace and Proctofoam and follow-up with her MANAGER BOOK physician in the outpatient setting. She is provided with a note for work. Additional diagnosis: Constipation, UTI and [facility]08-19-2022 Hospital Discharge instructions Follow Up Care 07/14/2022 06:07:36 With:Cruz Meza Address:Unknown When:07/17/2022 07:24:48 With:CRUZ RODRÍGUEZ Address: [address] [address]- Business (1) When:Within 3 Day(s) [facility]08-19-2022 Hospital Discharge instructions Follow Up Care 07/14/2022 04:40:16 With:Cruz Meza Address: [address], [address] [place] [address]- Business (1) When:07/17/2022 Comments:Appointment has already been scheduledCall Dr if fever>100.5 F, heavy bleedingCall for any problems.Call for severe abdominal painCall physician for heavy vaginal bleedingCall physician if symptoms worsenPlease call if you need to rescheduleReturn for contractions closer, longer, harderReturn ifruptured membranes or vaginal bleeding [facility]05-31-2022 Evaluation + Plan note Diagnostic Tests Pending * [id number]-[id number] 04/25/22 * NIGEL w/Reflex if POS 04/25/22 * Ceruloplasmin 04/25/22 * HCV Antibody RFX to Quant PCR 04/25/22 * HBV Core Ab 04/25/22 * Hepatitis B Surface Antibody 04/25/22 * Hepatitis B Surface Antigen 04/25/22 * Smooth Muscle Antibody Screen 04/25/22 [facility]05-24-2022 Evaluation note* Encounter Date Diagnosis Assessment Notes Treatment Notes Treatment Clinical Notes March, Elevated liver function tests (ICD-10 - R79.89) LABS INDICATED ABOVE [employer] Other Evaluation note* Diagnosis Pelvic pain in female- Primary Unspecified symptom associated with female genital organs documented in this encounter [facility]* Diagnosis Chronic pelvic pain in female- Primary Unspecified symptom associated with female genital organs Constipation, unspecified constipation type High-tone pelvic floor dysfunction Other specified disorders of female genital organs Diastasis of rectus abdominis Dysmenorrhea Other specified dyspareunia documented in this encounter [facility]* Diagnosis Endometriosis- Primary Endometriosis, site unspecified Pelvic and perineal pain Unspecified symptom associated with female genital organs documented in this encounter [facility]* Diagnosis Pelvic pain in female- Primary Unspecified symptom associated with female genital organs documented in this encounter [facility]* Diagnosis Pelvic pain in female- Primary Unspecified symptom associated with female genital organs documented in this encounter [facility]* Diagnosis High-tone pelvic floor dysfunction- Primary Other specified disorders of female genital organs Chronic pelvic pain in female Unspecified symptom associated with female genital organs documented in this encounter [facility]* Diagnosis Pelvic and perineal pain Unspecified symptom associated with female genital organs documented in this encounter [facility]* Diagnosis Menorrhagia with regular cycle Pelvic pain in female Unspecified symptom associated with female genital organs Uses control [facility]* Diagnosis Preeclampsia, severe, third trimester- Primary Preeclampsia, severe, third trimester documented in this encounter [facility]* Diagnosis Pre-eclampsia, severe, delivered- Primary [facility]* Diagnosis Dysmenorrhea, unspecified documented in this encounter [facility]* Diagnosis Well woman exam with routine gynecological exam Routine gynecological examination documented in this encounter [facility]* Diagnosis Hypertension, unspecified type (CMS/HCC)- Primary Paroxysmal tachycardia, unspecified (CMS/HCC) Paroxysmal tachycardia, unspecified Chronic right shoulder pain Pain in joint, shoulder region Scapular dyskinesis Lack of coordination [facility]* Diagnosis Pain in female genitalia on intercourse Dyspareunia Endometriosis Endometriosis, site unspecified documented in this encounter [facility] noteNo assessment information availableSalem [facility] Work Phone: Evaluation note* Diagnosis Missed menses , unspecified gestational age Encounter for supervision of normal first in first trimester documented [facility] this [facility]* Diagnosis Nonintractable episodic headache, unspecified headache type- Primary Second trimester ([facility]) state, incidental 13 weeks gestation of ([facility]) documented in this [facility]* Diagnosis Sinusitis, unspecified chronicity, unspecified location- Primary Second trimester ([facility]) state, incidental 17 weeks gestation of ([facility]) Screening, , for anatomic survey ([facility]) Encounter for anatomic survey documented in this encounter [facility]* Diagnosis 20 weeks gestation of ([facility]) Second trimester ([facility]) state, incidental Diabetes mellitus screening Screening for diabetes mellitus documented in this [facility]* Diagnosis Wellness examination- Primary Hypertension, unspecified type Lipid screening Screening for lipoid disorders documented [facility]* Diagnosis Wellness examination- Primary Hypertension, unspecified type Lipid screening Screening for lipoid disorders 24 weeks gestation of ([facility]) Second trimester ([facility]) state, incidental Elevated glucose tolerance test Impaired glucose tolerance test documented in this encounter [facility] general Narrative - Reported* Type Description Date Medical History headache Surgical History appendectomy Surgical History shoulder surgery Surgical History endometriosis Wenwo Other History of Present illness Narrative* 26 [...] engaged x 1 year * working at [employer] in [place] [address] Work Phone: Hospital course Narrative No data available for this section [facility] No data available for this section [facility] HospitalInstructionsNot on filedocumented in this encounter [facility]Progress note No data available for this section [facility] HospitalReason for visit NarrativePT HERE AT REQUEST OF DR RODRÍGUEZ FOR EVALUATION AND TREATMENT OF ELVATED LIVER FUNCTION- ( DR. SAMUEL PT), LABS FROM DR RODRÍGUEZ REVIEWED BY DR Iraheta [email or web address] Other Summary Purpose Family History Unknown Family Member Name Dates Details No pertinent family history: Mother(V49.89, Z78.9) Status:Active Relationship Condition Age at Onset Recorded Date/T laney father Malignant neoplasm of colon Unknown grandparent Malignant neoplasm of colon Unknown Malignant neoplasm of breast Unknown grandparent Malignant neoplasm of breast Unknown father Family history of colon cancer Unknown Unknown Malignant neoplasm Unknown family member Unknown mother Hypertension Unknown Advance Directives Latest Code Status on File Code Status [...] Bilateral ureterolysis Surgeon: Dr. Charlene Rodriguez Resident/Fellow/Other Media Analyst: Glory Palacio Anesthesia: general I.V. 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 [employer]INO [employer] Reason for Referral Specialty Diagnoses / Procedures Referred By Michaela house Referred To Contact MR IMAGING Diagnoses Pelvic and perineal pain Procedures MRI FEMALE PELVIS WO/W IVCON MRI PELVIS W/O & W/CONTRAST MATERIAL Charlene Rodriguez, DO [address] [facility] [address] [place] [address] Mr Imaging Referral ID Status Reason Start Date Expiration Date Visits Requested Visits Authorized [id number] Authorized Auto-Generat ed Referral 05/17/2023 06/15/2024 1 1 Specialty Diagnoses / Procedures Referred By Michaela house Referred To Contact [facility] Diagnoses Constipation, unspecified constipation type High-tone pelvic floor dysfunction Diastasis of rectus abdominis Dysmenorrhea Other specified dyspareunia Chronic pelvic pain in female Procedures CONSULT TO PHYSICAL THERAPY PHYSICAL THERAPY EVALUATION HIGH COMPLEX 45 MINS Srinivasa Downs, QUANTITY SURVEYOR.RFP WRITER [address] [facility]/[address] [place] [address] [facility] [address] [place] [address] Referral ID Status Reason Start Date Expiration Date Visits Requested Visits Authorized [id number] Pending Review Auto-Generat ed Referral 05/01/2023 04/30/2024 1 1 Chief Complaint and Reason for Visit Chief Complaint Admit Date N94.10 N80.9 February 02, 2025 3:1 6pm Additional Source Comments INFORMATION SOURCE (unrecogn ized section and content) DATE CREATED AUTHOR 10/26/2020 [facility] DATE CREATED AUTHOR AUTHOR'S ORGANIZ ATION 11/06/2020 [facility] DATE CREATED AUTHOR AUTHOR'S ORGANIZ ATION 12/17/2020 [facility] DATE CREATED AUTHOR AUTHOR'S ORGANIZ ATION 04/21/2021 [facility] DATE CREATED AUTHOR AUTHOR'S ORGANIZ ATION 06/05/2021 [facility] DATE CREATED AUTHOR AUTHOR'S ORGANIZ ATION 10/02/2021 Tonya archuleta DATE CREATED AUTHOR AUTHOR'S ORGANIZ ATION 02/10/2022 [facility] DATE CREATED AUTHOR AUTHOR'S ORGANIZ ATION 12/05/2022 [facility] DATE CREATED AUTHOR AUTHOR'S ORGANIZ ATION 04/30/2024 [facility] DATE CREATED AUTHOR AUTHOR'S ORGANIZ ATION 02/09/2025 [facility] DATE CREATED AUTHOR AUTHOR'S ORGANIZ ATION 03/15/2025 [facility] DATE CREATED AUTHOR AUTHOR'S ORGANIZ ATION 08/03/2025 [facility] DATE CREATED AUTHOR AUTHOR'S ORGANIZ ATION 08/13/2025 [facility] DATE CREATED AUTHOR AUTHOR'S ORGANIZ ATION 08/14/2025 [facility] DATE CREATED AUTHOR AUTHOR'S ORGANIZ ATION 08/16/2025 [facility] DATE CREATED AUTHOR AUTHOR'S ORGANIZ ATION 08/20/2025 [facility] DATE CREATED AUTHOR AUTHOR'S ORGANIZ ATION 08/21/2025 [facility] Care Team (unrecognized sect ion and content) Manager Business Intelligence Relationship Specialty Start Date End Date Cruz Rodríguez MD [address] [place] [address] PCP - General Family Medicine 12/03/14 Manager Business Intelligence Relationship Specialty Start Date End Date Cruz Rodríguez MD [address] [place] [address] PCP - General Family Medicine 12/03/14 Manager Business Intelligence Relationship Specialty Start Date End Date Cruz Rodríguez MD [address] [place] [address] PCP - General Family Medicine 12/03/14 Manager Business Intelligence Relationship Specialty Start Date End Date Cruz Rodríguez MD [address] [place] [address] PCP - General Family Medicine 12/03/14 Manager Business Intelligence Relationship Specialty Start Date End Date Cruz Rodríguez MD [address] [place] [address] PCP - General Family Medicine 12/03/14 Manager Business Intelligence Relationship Specialty Start Date End Date Cruz Rodríguez MD [address] [place] [address] PCP - General Family Medicine 12/03/14 Manager Business Intelligence Relationship Specialty Start Date End Date Cruz Rodríguez MD [address] [place] [address] PCP - General Family Medicine 12/03/14 Manager Business Intelligence Relationship Specialty Start Date End Date Cruz Rodríguez MD [address] [place] [address] PCP - General Family Medicine 12/03/14 Manager Business Intelligence Relationship Specialty Start Date End Date Cruz Rodríguez MD [address] [place] [address] PCP - General Family Medicine 12/03/14 Manager Business Intelligence Relationship Specialty Start Date End Date Cruz Rodríguez MD [address] [place] [address] PCP - General Family Medicine 12/03/14 Manager Business Intelligence Relationship Specialty Start Date End Date Cruz Rodríguez MD [address] [place] [address] PCP - [place] [facility] 09/26/21 Cruz Rodríguez MD [address] [place] [address] PCP - General Family Medicine 04/10/23 Cruz Rodríguez MD [address] [place] [address] PCP - [facility] 02/24/23 Zenobia East NP [address] [place] [address] Nurse Practitioner Family Medicine 10/05/23 Trista Thao NP [address] [place] [address] Nurse Practitioner Pulmonary Disease 10/05/23 Manager Business Intelligence Relationship Specialty Start Date End Date Cruz Rodríguez MD [address] [place] [address] PCP - General Family Medicine 12/03/14 Manager Business Intelligence Relationship Specialty Start Date End Date Cruz Rodríguez MD [address] [place] [address] PCP - General Family Medicine 12/03/14 Manager Business Intelligence Relationship Specialty Start Date End Date Cruz Rodríguez MD [address] [place] [address] PCP - [facility] 09/26/21 Cruz Rodríguez MD [address] [place] [address] PCP - [facility] 02/24/23 Nay Beltran DO [address] [place] [address] PCP - General Family Medicine 02/14/24 Manager Business Intelligence Relationship Specialty Start Date End Date Cruz Rodríguez MD [address] [place] [address] PCP - [facility] 09/26/21 Cruz Rodríguez MD [address] [place] [address] PCP - [facility] 02/24/23 Nay Beltran DO [address] [place] [address] PCP - General Family Medicine 02/14/24 Manager Business Intelligence Relationship Specialty Start Date End Date Cruz Rodríguez MD [address] [place] [address] PCP - [facility] 09/26/21 Cruz Rodríguez MD [address] [place] [address] PCP - [facility] 02/24/23 Nay Beltran DO [address] [place] [address] PCP - General Family Medicine 02/14/24 Manager Business Intelligence Relationship Specialty Start Date End Date Cruz Rodríguez MD [address] [place] [address] PCP - [facility] 09/26/21 Cruz Rodríguez MD [address] [place] [address] PCP - [facility] 02/24/23 Nay Beltran DO [address] [place] [address] PCP - General Family Medicine 02/14/24 Manager Business Intelligence Relationship Specialty Start Date End Date Cruz Rodríguez MD [address] [place] [address] PCP - [facility] 09/26/21 Cruz Rodríguez MD [address] [place] [address] PCP - [facility] 02/24/23 Nay Beltran DO [address] [place] [address] PCP - General Family Medicine 02/14/24 Manager Business Intelligence Relationship Specialty Start Date End Date Cruz Rodríguez MD [address] [place] [address] PCP - [facility] 09/26/21 Nay Beltran DO [address] [place] [address] PCP - General Family Medicine 02/14/24 Manager Business Intelligence Relationship Specialty Start Date End Date Nay Beltran DO [address] [place] [address] PCP - General Family Medicine 02/14/24 Manager Business Intelligence Relationship Specialty Start Date End Date Nay Beltran DO [address] [place] [address] PCP - General Family Medicine 02/14/24 Team Status: Active Member Role Status Dates Cruz Rodríguez MD Primary Care Provider Active Team Status: Inactive Member Role Status Dates Cruz Rodríguez MD Primary Care Provider Active S tart: February 02, 2025 End: February 02, 2025 Nathan Pop DO Attending Provider Active Start : February 02, 2025 End: February 02, 2025 Manager Business Intelligence Relationship Specialty Start Date End Date Nay Beltran DO [address] [place] [address] PCP - General Family Medicine 02/14/24 Nay Beltran DO [address] [place] [address] PCP - [facility] 07/27/24 11/25/99 Manager Business Intelligence Relationship Specialty Start Date End Date Nay Beltran DO [address] [place] [address] PCP - General Family Medicine 02/14/24 Nya Beltran DO [address] [place] [address] PCP - [facility] 07/27/24 11/25/99 Manager Business Intelligence Relationship Specialty Start Date End Date Nay Beltran DO [address] [place] [address] PCP - General Family Medicine 02/14/24 Nay Beltran DO [address] [place] [address] PCP - [facility] 07/27/24 11/25/99 Manager Business Intelligence Relationship Specialty Start Date End Date Nay Beltran DO [address] [place] [address] PCP - General Family Medicine 02/14/24 Nay Beltran, DO [address] [place] [address] PCP - [facility] 07/27/24 11/25/99 Manager Business Intelligence Relationship Specialty Start Date End Date Nay Beltran DO [address] [place] [address] PCP - General Family Medicine 02/14/24 Nay Beltran, DO [address] [place] [address] PCP - [facility] 07/27/24 11/25/99 Manager Business Intelligence Relationship Specialty Start Date End Date Nay Beltran, DO [address] [place] [address] PCP - General Family Medicine 02/14/24 Nay Beltran, DO [address] [place] [address] PCP - [facility] 07/27/24 11/25/99 Manager Business Intelligence Relationship Specialty Start Date End Date Nay Beltran DO [address] [place] [address] PCP - General Family Medicine 02/14/24 Nay Beltran DO [address] [place] [address] PCP - [facility] 07/27/24 11/25/99 Manager Business Intelligence Relationship Specialty Start Date End Date Nay Beltran DO [address] [place] [address] PCP - General Family Medicine 02/14/24 Nay Beltran, DO [address] [place] [address] PCP - [facility] 07/27/24 11/25/99 Manager Business Intelligence Relationship Specialty Start Date End Date Nay Beltran DO [address] [place] [address] PCP - General Family Medicine 02/14/24 Nay Beltran DO [address] [place] [address] PCP - [facility] 07/27/24 11/25/99 Manager Business Intelligence Relationship Specialty Start Date End Date Nay Beltran DO [address] [place] [address] PCP - General Family Medicine 02/14/24 Nay Beltran DO [address] [place] [address] PCP - [facility] 07/27/24 11/25/99 Manager Business Intelligence Relationship Specialty Start Date End Date Nay Beltran DO [address] [place] [address] PCP - General Family Medicine 02/14/24 Nay Beltran DO [address] [place] [address] PCP - [facility] 07/27/24 11/25/99 Manager Business Intelligence Relationship Specialty Start Date End Date Cruz Rodríguez MD [address] [place] [address] PCP - General Family Medicine 12/02/18 Manager Business Intelligence Relationship Specialty Start Date End Date Cruz Rodríguez MD [address] [place] [address] PCP - General Family Medicine 12/02/18 Source Comments (unrecognize d section and content) In the event this informatio n is protected by the Federal Confidentiality of Alcohol and Drug Abuse Patient Records regulations: The Federal rules restrict any use of the information to criminally investigate or prosecute any alcohol or drug abuse patient.[facility] the event this information is protected by the Federal Confidentiality of Alcohol and Drug Abuse Patient Records regulations: The Federal rules restrict any use of the information to criminally investigate or prosecute any alcohol or drug abuse patient.[facility] the event this information is protected by the Federal Confidentiality of Alcohol and Drug Abuse Patient Records regulations: The Federal rules restrict any use of the information to criminally investigate or prosecute any alcohol or drug abuse patient.[facility] the event this information is protected by the Federal Confidentiality of Alcohol and Drug Abuse Patient Records regulations: The Federal rules restrict any use of the information to criminally investigate or prosecute any alcohol or drug abuse patient.[facility] the event this information is protected by the Federal Confidentiality of Alcohol and Drug Abuse Patient Records regulations: The Federal rules restrict any use of the information to criminally investigate or prosecute any alcohol or drug abuse patient.[facility] the event this information is protected by the Federal Confidentiality of Alcohol and Drug Abuse Patient Records regulations: The Federal rules restrict any use of the information to criminally investigate or prosecute any alcohol or drug abuse patient.[facility] the event this information is protected by the Federal Confidentiality of Alcohol and Drug Abuse Patient Records regulations: The Federal rules restrict any use of the information to criminally investigate or prosecute any alcohol or drug abuse patient.[facility] the event this information is protected by the Federal Confidentiality of Alcohol and Drug Abuse Patient Records regulations: The Federal rules restrict any use of the information to criminally investigate or prosecute any alcohol or drug abuse patient.[facility] Hospital[facility] the event this information is protected by the Federal Confidentiality of Alcohol and Drug Abuse Patient Records regulations: The Federal rules restrict any use of the information to criminally investigate or prosecute any alcohol or drug abuse patient.[facility] HospitalIn the event this information is protected by the Federal Confidentiality of Alcohol and Drug Abuse Patient Records regulations: The Federal rules restrict any use of the information to criminally investigate or prosecute any alcohol or drug abuse patient.[facility] Hospital[facility] the event this information is protected by the Federal Confidentiality of Alcohol and Drug Abuse Patient Records regulations: The Federal rules restrict any use of the information to criminally investigate or prosecute any alcohol or drug abuse patient.[facility] Hospital[facility] the event this information is protected by the Federal Confidentiality of Alcohol and Drug Abuse Patient Records regulations: The Federal rules restrict any use of the information to criminally investigate or prosecute any alcohol or drug abuse patient.[facility] Hospital[facility] the event this information is protected by the Federal Confidentiality of Alcohol and Drug Abuse Patient Records regulations: The Federal rules restrict any use of the information to criminally investigate or prosecute any alcohol or drug abuse patient.[facility] Hospital[facility] the event this information is protected by the Federal Confidentiality of Alcohol and Drug Abuse Patient Records regulations: The Federal rules restrict any use of the information to criminally investigate or prosecute any alcohol or drug abuse patient.[facility] HospitalIn the event this information is protected by the Federal Confidentiality of Alcohol and Drug Abuse Patient Records regulations: The Federal rules restrict any use of the information to criminally investigate or prosecute any alcohol or drug abuse patient.[facility] Reason for Visit (unrecogniz ed section and content) Reason Comments Menstrual Problem Reason Comments Vaginal Bleeding Reason Comments Endometriosis Reason Comments Insurance Authorization [place] Reason Comments Pelvic Pain Specialty Diagnoses / Procedures Referred By Contac t Referred To Contact SWIMMING PROFESSOR / GYNECOLOGY Diagnoses Painful menstrual periods Painful Periods Procedures OFFICE/OUTPATIENT ESTABLISHED SF MDM 10-19 MIN EST WHI PATIENT Srinivasa Downs, QUANTITY SURVEYOR.RFP WRITER [address] [place] [address] Srinivasa Downs, QUANTITY SURVEYOR.RFP WRITER [address] [place] [address] Referral ID Status Reason Start Date Expiration Date V isits Requested Visits Authorized [id number] Authorized 08/20/2023 11/25/2023 1 99 Reason Comments Radiology MRI Specialty Diagnoses / Procedures Referred By Contac t Referred To Contact MR IMAGING Diagnoses Pelvic and perineal pain Procedures MRI FEMALE PELVIS WO/W IVCON MRI PELVIS W/O & W/CONTRAST MATERIAL Charlene Rodriguez, [address] [facility] [address] [place] [address] Mr Imaging [place] [address] Referral ID Status Reason Start Date Expiration Date V isits Requested Visits Authorized [id number] Closed Auto-Generate d Referral 05/17/2023 06/15/2024 1 1 Reason Onset Date Comments Refill Request 01/02/2024 Reason Comments Menorrhagia Cramping with bleedi ng Reason Comments Surgery Cancelled Specialty Diagnoses / Procedures Referred By Contac t Referred To Contact Diagnoses Preeclampsia, severe, third trimester Procedures O14.13 - Preeclampsia, severe, third trimester Ritu Ryder, [address] [place] [address] [facility] [address] [place] [address] Referral ID Status Reason Start Date Expiration Date Visits Re quested Visits Authorized [id number] 1 1 Reason Comments Blood Pressure Check Reason Comments Dysmenorrhea Reason Comments Well Women Visit Reason Comments Shoulder Pain Reason Comments Painful [place] Reason Comments Amenorrhea Reason Comments Routine Visit Scheduled Active and Recently Administ ered Medications [...] or split. 0808 (Given - Provider: Alejandra Arcos, RN) 0803 (Given - Provider: Alejandra Arcos, RN) 0942 (Given - Provider: Anna Booth RN) Continuous Medication Order 11/30/2022 12/01/2022 12/02/2022 magnesium sulfate 20 GM/500ML infusion () 2,000 mg/hr (50 mL/hr), IntraVENous, Continuous, Starting on Sun11/28/22 at 0100, For 3 days 2 hours 0536 (New Bag - Provider: Chelsi Carlson RN)1502 (New Bag - Provider: Alejandra Arcos RN) 0112 (New Bag - Provider: Lani Fraga, RN)0300 (Stopped - Provider: Lani Fraga, DIALLO) oxytocin (Pitocin) 30 units in 500 mL [...] every 2-3 minutes with cervical changes or [place] units (MVU) greater than 200 in a [...] IntraVENous, at 30 mL/hr, Continuous, Starting on Sun11/30/22 at 0430, Post- use ONLY after delivery [...] Alejandra Arcos RN)1931 (Given - Provider: Lani Fraga, DIALLO) 0551 (Given - Provider: Lani Fraga, DIALLO)1221 (Given - Provider: Alejandra Arcos, DIALLO)2327 (Given - Provider: Lida Mark RN) 0942 (Given - Provider: Anna Booth, DIALLO)1601 (Given - Provider: Anna Booth, RN) Benzocaine-Benzethonium [...] (1-3), Starting on Constance 11/30/22 at 0422, Alternate ibuprofen and acetaminophen every 3 hours. 0531 (Given - Provider: Chelsi Carlson RN)1204 (Given - Provider: Alejandra Arcos RN)1931 (Given - Provider: Lani Fraga RN) 0551 (Given - Provider: Lani Fraga RN)1221 (Given - Provider: Alejandra Arcos RN)2327 (Given - Provider: Lida Mark RN) 0942 [...] over 11 Minutes, PRN, Bleeding, Starting on Sun11/28/22 at 0042, Pre-Delivery, For Immediate Post Use [...] For perineal pain or discomfort, Starting on Sun11/30/22 at 0608, , Apply to perineal area. Patient is capable and may self administer at bedside. Linked Groups Order Group 1: diphenhydrAMINE (BENADryl) injection 25 mgJump to med 25 mg, IntraVENous, Every 6 hours PRN, itching, Starting on Sun11/30/22 at 1635 Or diphenhydrAMINE (BENADryl) tablet/capsule 25 mgJump to med 25 mg, Oral, Every 6 hours PRN, itching, Starting on Sun11/30/22 at 1635 Group 2: ondansetron ODT (Zofran-ODT) disintegrating tablet 4 mgJump to med 4 mg, Oral, Every 8 hours PRN, nausea, vomiting, Starting on Sun11/30/22 at 0422
1st Line. If inadequate response [...] BE BASED ON THE PRIMARY CLINICAL RECORDS. [facility]. provides no warranty or guarantee of the accuracy or completeness of information in this document.
== END 2025-08-27 16:38 | disposition home or self-care (01) ==
PROVIDERS: Family Provider Family Medicine; PCP Family Medicine; Visit Provider Nurse Practitioner Family
DX: O13.9 Gestational [pregnancy-induced] hypertension without significant proteinuria, unspecified trimester (principal)
CPT/HCPCS: 36415; 82565; 82570; 83615; 84156; 84450; 84520; 84550; 85025; 85610; 85730

== ENCOUNTER 2025-08-27 16:42 | Observation (INO) | payer OTHER, SELFPAY ==
--- NOTE | 2025-08-27 16:47 | US_ITS ---
[place] [id number] Patient Name: JUHI HOPE MRN: [id number] date: 1995 Sex: F Assigned Patient Location: LAB Current Patient Location: LAB Accession/Order Number: [id number] Exam Date: 08/27/2025 17:37 Report Date: 08/27/2025 18:02 At the request of: MARBELLA HUNTER Procedure: US OB BPP w non-stress Ultrasound biophysical profile HISTORY: Increased blood pressure Adequate breathing movement, gross body movement, tone and amniotic fluid volume for total score of 8 out of 8. The amniotic fluid index is 11.7cm within normal limits. The heart rate 131 bpm. US/US OB BPP w non-stress IMPRESSION: Adequate ultrasound biophysical profile Impression dictated by: Jp Morillo M.D. 08/27/2025 6:02 PM Dictation Location: [facility]ling[facility] Electronically authenticated by: [id number] Y Date: 08/27/2025 18:02
[2025-08-27 17:20] VITALS: BP 135/83; PULSE 101
[2025-08-27 17:36] VITALS: BP 139/83; PULSE 109
--- OUTSIDE RECORDS SUMMARY | 2025-08-27 20:07 | XMS_ITS | CCD ---
Author Organization [facility] Care Team Providers Care Hot Oiler Name Role Phone Unavailable Unavailable POCOPAL QUINTEROS [...] Care Provider Cruz Rodríguez MD Unavailable Kita SUBSTATION DESIGNER, Zenobia Unavailable Keesha SUBSTATION DESIGNER, Trista R Unavailable Cruz Rodríguez MD Primary [...] Care Provider Kiesha DO, Nathan Attending Provider Kiesha, Nathan Admitting Unavailable Kiesha, Nathan Attending Unavailable Cruz Rodríguez Primary Care Unavailable KIESHA, Nathan R Attending Unavailable KIESHA, Nathan R Referring Unavailable KIESHA, Nathan R Admitting Unavailable KIESHA, Nathan R Attending Unavailable KIESHA, Nathan R Admitting Unavailable Kaftan DO, Nay R Unavailable Yomaira BELTRAN Attending Unavailable KAFTAN, G KENNETH [...] Unavailable Cruz Rodríguez MD Primary Care Provider [phone] MARBELLA KEANE Attending Unavailable MARBELLA KEANE Admitting [...] Medication Allergies] Propensity to adverse reactions (disorder) [facility] Repository Medications Current Medications Medication Drug [...] spasm, # 30 tab(s), Refills(s) 0, Pharmacy: [facility] 858, 157, cm, 01/23/22 7:20:00 [...] TAB PO Daily August 04, 2019 12:00am [place] 0.25 -35 MG-MCG Oral for 28 Not-Taking [...] once daily. Take 2 tablets by mo [facility] once daily. PNV no.95-ferrous fumarate-FA () 28 [...] MG tablet Indications: , unspecified gestational age ([facility]) , Encounter for supervision of normal first in first trimester ([facility]) Take 1 tablet by mouth Daily 30 [...] and Serotonin-1d Receptor Agonist Start: 10-24-2018 rizatriptan RESEARCH DIRECTOR (MAXALT-RESEARCH DIRECTOR) 5 mg disintegrating tablet Dissolve 1 tablet [...] 04, 2019 8:19am take 1 capsule by [facility] once daily FLUoxetine (PROZAC) 10 mg [...] days, # 9 tab(s), Refills(s) 0, Pharmacy: [facility] 858, 157, cm, 03/04/21 7:22:00 [...] clean-u p per request of Phys. EHR [facility] Diabetes mellitus without complication (2 sources) Abnormal [...] Glucose Tolerance Test 2 Hour 169 [facility] Capillary Glucose POCon 07-28 Glucose [Mass/Vol] 88 mg/dL Normal 55-99 [facility] Comment on above: Performed By: #### 2 [id number] #### [facility] [address] [place] [address] Glu 1 Hron 08-15-2025 Glucose [Mass/Vol] 152 mg/dL Normal 55-180 [facility] Comment on above: Performed By: #### 2 [id number] #### [facility] [address] [place] [address] Glu 2 Hron 08-15-2025 Glucose [Mass/Vol] 169 mg/dL High 55-155 [facility] Comment on above: Performed By: #### 2 [id number] #### [facility] [address] [place] [address] Glu 3 Hron 08-15-2025 Glucose [Mass/Vol] 141 mg/dL High 55-140 [facility] Comment on above: Performed By: #### 2 [id number] #### [facility] [address] [place] [address] Glu Fastingon 08-15-2025 Glucose [Mass/Vol] 82 mg/dL Normal 55-99 [facility] Comment on above: Performed By: #### 2 [id number] #### [facility] [address] [place] [address] Glucose tolerance, 1 houron 08-15-2025 Glucose Tolerance Test 1 Hour [facility] tolerance, 3 hourson 08-15-2025 Glucose Tolerance Test 3 Hour 141 [facility] Glucose, tolerance fastingon 08-15-2025 Glucose Tolerance Test Fasting 82 [facility] No Panel Informationon 08-15 [facility] CBC w/ Auto Diffon 5 Basophil Absolute 0.1 E9/L Normal 0.0-0.2 [facility] Comment on above: Performed By: #### 2 [id number] #### [facility] [address] [place] [address] Basophils/100 WBC (Bld) 0.6 % Normal 0.0-2.0 [facility] Comment on above: Performed By: #### 2 [id number] #### [facility] [address] [place] [address] Eos Absolute 0.1 E9/L Normal 0.0-0.5 [facility] Comment on above: Performed By: #### 2 [id number] #### [facility] [address] [place] [address] Eosinophils/100 WBC (Bld) 1.0 % Normal 0.0-8.0 [facility] Comment on above: Performed By: #### 2 [id number] #### [facility] [address] [place] [address] Erythrocyte distribution width (RBC) [Ratio] 12.9 % Normal 10.9-14.2 [facility] Comment on above: Performed By: #### 2 [id number] #### [facility] [address] [place] [address] Hematocrit (Bld) [Volume fraction] 33.1 % Low 34.0-46.0 [facility] Comment on above: Performed By: #### 2 567124 #### [facility] [address] [place] [address] Hemoglobin (Bld) [Mass/Vol] 11.4 g/dL Low 12.0-16.0 [facility] Comment on above: Performed By: #### 2 [id number] #### [facility] [address] [place] [address] Lymph Absolute 2.0 E9/L Normal 1.0-4.0 [facility] Comment on above: Performed By: #### 2 280911 #### [facility] [address] [place] [address] Lymphocytes/100 WBC (Bld) 19.6 % Normal 14.0-50.0 [facility] Comment on above: Performed By: #### 2 237750 #### [facility] [address] [place] [address] MCH (RBC) [Entitic mass] 29.9 pg Normal 27.0-34.0 [facility] Comment on above: Performed By: #### 2 078675 #### [facility] [address] [place] [address] MCHC (RBC) [Mass/Vol] 34.4 g/dL Normal 31.4-36.0 [facility] Comment on above: Performed By: #### 2 194270 #### [facility] [address] [place] [address] MCV (RBC) [Entitic vol] 86.7 fL Normal 80.0-100.0 [facility] Comment on above: Performed By: #### 2 357897 #### [facility] [address] [place] [address] [place] Absolute 0.5 E9/L Normal 0.2-1.0 [facility] Comment on above: Performed By: #### 2 085959 #### [facility] [address] [place] [address] Monocytes/100 WBC (Bld) 4.6 % Normal 4.0-14.0 [facility] Comment on above: Performed By: #### 2 [id number] #### [facility] [address] [place] [address] Neutro Absolute 7.5 E9/L Normal 2.0-7.5 [facility] Comment on above: Performed By: #### 2 350725 #### [facility] [address] [place] [address] Neutro Auto 74.2 % Normal 36.0-75.0 [facility] Comment on above: Performed By: #### 2 670031 #### [facility] [address] [place] [address] Platelet 294.0 E9/L Normal 150.0-500.0 [facility] Comment on above: Performed By: #### 2 649008 #### [facility] [address] [place] [address] Platelet mean volume (Bld) [Entitic vol] 8.1 fL Normal 6.4-10.8 [facility] Comment on above: Performed By: #### 2 178291 #### [facility] [address] [place] [address] RBC 3.8 E12/L Low 4.3-5.9 [facility] Comment on above: Performed By: #### 2 [id number] #### [facility] [address] [place] [address] WBC 10.1 E9/L Normal 4.0-11.0 [facility] Comment on above: Performed By: #### 2 113445 #### [facility] [address] [place] [address] Ferritinon 08-12-2025 Ferritin Lvl 7 ng/mL Low 11-307 [facility] Comment on above: Performed By: #### 2 716734 #### [facility] [address] [place] [address] Folateon 08-12-2025 Folate Lvl >22.3 Normal >=6.7 [facility] Comment on above: Performed By: #### 2 050590 #### [facility] [address] [place] [address] Gest Scr Glu 1 Hron 08-12-20 25 Glucose [Mass/Vol] 155 mg/dL High 55-140 [facility] Comment on above: Performed By: #### 3 [id number] #### [facility] [address] [place] [address] Glucose 1h post 50g loadon 0 08-12-2025 Glucose, 1 hr PP 50GM dose 155 [facility] Ironon 08-12-2025 Iron 55 microgram/dL Normal 35-153 [facility] Comment on above: Performed By: #### 2 [id number] #### [facility] [address] [place] [address] No Panel Informationon 08-12 [facility] TIBC Calculatedon 08-12-2025 TIBC 637 microgram/dL High 250-400 [facility] Comment on above: Performed By: #### 1 [id number] #### [facility] [address] [place] [address] Transferrin [Mass/Vol] 455 mg/dL High 200-370 [facility] Comment on above: Performed By: #### 1 [id number] #### [facility] [address] [place] [address] US OB LIMITED 1+ FETUSESon 0 08-12-2025 [...] UA Negative Negative - 4(70) +++ mg/dL [facility] Blood, UA Negative Negative - 50 Teodoro/mcL [facility] Clarity, UA Clear [facility] Color, UA Yellow [facility] Glucose, UA Negative Negative - 2000(110) ++++ mg/dL [facility] Interpretation and review of laboratory results Abnormal [facility] Ketones, UA Negative Negative - 160(16) ++++ mg/dL [facility] Leukocytes, UA Negative Negative - 500+++ Robinson/mcL [facility] Nitrite, UA Negative Negative - Positive [facility] pH, UA 6 5 - 9 [facility] Protein, UA Negative Negative - 2000(20) ++++ mg/dL [facility] Spec Grav, UA 1.01 1 - 1.03 [facility] Urobilinogen, UA 1.0 0.2 - 12 mg/dL [facility] Vit B12on 08-12-2025 Cobalamin (Vitamin B12) [Mass/Vol] 205 pg/mL Normal 50-1500 [facility] Comment on above: Performed By: #### 2 301014 #### [facility] [address] [place] [address] CBC w/ Auto Diffon 5 Basophil Absolute 0.0 E9/L Normal 0.0-0.2 [facility] Comment on above: Performed By: #### 2 743576 #### [facility] [address] [place] [address] Basophils/100 WBC (Bld) 0.2 % Normal 0.0-2.0 [facility] Comment on above: Performed By: #### 2 [id number] #### [facility] [address] [place] [address] Eos Absolute 0.1 E9/L Normal 0.0-0.5 [facility] Comment on above: Performed By: #### 2 241696 #### [facility] [address] [place] [address] Eosinophils/100 WBC (Bld) 0.5 % Normal 0.0-8.0 [facility] Comment on above: Performed By: #### 2 174050 #### [facility] [address] [place] [address] Erythrocyte distribution width (RBC) [Ratio] 13.0 % Normal 10.9-14.2 [facility] Comment on above: Performed By: #### 2 238176 #### [facility] [address] [place] [address] Hematocrit (Bld) [Volume fraction] 31.9 % Low 34.0-46.0 [facility] Comment on above: Performed By: #### 2 949517 #### [facility] [address] [place] [address] Hemoglobin (Bld) [Mass/Vol] 11.1 g/dL Low 12.0-16.0 [facility] Comment on above: Performed By: #### 2 398949 #### [facility] [address] [place] [address] Lymph Absolute 2.1 E9/L Normal 1.0-4.0 [facility] Comment on above: Performed By: #### 2 595752 #### [facility] [address] [place] [address] Lymphocytes/100 WBC (Bld) 16.2 % Normal 14.0-50.0 [facility] Comment on above: Performed By: #### 2 573359 #### [facility] [address] [place] [address] MCH (RBC) [Entitic mass] 29.9 pg Normal 27.0-34.0 [facility] Comment on above: Performed By: #### 2 367968 #### [facility] [address] [place] [address] MCHC (RBC) [Mass/Vol] 34.8 g/dL Normal 31.4-36.0 [facility] Comment on above: Performed By: #### 2 118679 #### [facility] [address] [place] [address] MCV (RBC) [Entitic vol] 85.7 fL Normal 80.0-100.0 [facility] Comment on above: Performed By: #### 2 175720 #### [facility] [address] [place] [address] [place] Absolute 0.9 E9/L Normal 0.2-1.0 [facility] Comment on above: Performed By: #### 2 095789 #### [facility] [address] [place] [address] Monocytes/100 WBC (Bld) 7.0 % Normal 4.0-14.0 [facility] Comment on above: Performed By: #### 2 882229 #### [facility] [address] [place] [address] Neutro Absolute 9.7 E9/L High 2.0-7.5 [facility] Comment on above: Performed By: #### 2 937394 #### [facility] [address] [place] [address] Neutro Auto 76.1 % High 36.0-75.0 [facility] Comment on above: Performed By: #### 2 357381 #### [facility] [address] [place] [address] Platelet 307.0 E9/L Normal 150.0-500.0 [facility] Comment on above: Performed By: #### 2 481578 #### [facility] [address] [place] [address] Platelet mean volume (Bld) [Entitic vol] 8.0 fL Normal 6.4-10.8 [facility] Comment on above: Performed By: #### 2 247930 #### [facility] [address] [place] [address] RBC 3.7 E12/L Low 4.3-5.9 [facility] Comment on above: Performed By: #### 2 912469 #### [facility] [address] [place] [address] WBC 12.8 E9/L High 4.0-11.0 [facility] Comment on above: Performed By: #### 2 492531 #### [facility] [address] [place] [address] CMPon 08-01-2025 CO2 [Moles/Vol] 20 mmol/L Low 21-31 [facility] Comment on above: Performed By: #### 2 074790 #### [facility] [address] [place] [address] Anion gap [Moles/Vol] 16 mmol/L Normal 6-16 [facility] Comment on above: Performed By: #### 2 018769 #### [facility] [address] [place] [address] Albumin [Mass/Vol] 3.8 g/dL Normal 3.3-5.0 [facility] Comment on above: Performed By: #### 2 967311 #### [facility] [address] [place] [address] Albumin/Globulin [Mass ratio] 1.3 {ratio} Normal 1.1-2.2 [facility] Comment on above: Performed By: #### 2 004747 #### [facility] [address] [place] [address] Alk Phos 78 Int._Unit/L Normal 21-98 [facility] Comment on above: Performed By: #### 2 195345 #### [facility] [address] [place] [address] ALT 21 Int._Unit/L Normal 6-46 [facility] Comment on above: Performed By: #### 2 111954 #### [facility] [address] [place] [address] AST 17 Int._Unit/L Normal 5-43 [facility] Comment on above: Performed By: #### 2 893858 #### [facility] [address] [place] [address] Bili Total 0.8 mg/dL Normal 0.0-1.1 [facility] Comment on above: Performed By: #### 2 696416 #### [facility] [address] [place] [address] BUN/Creat Ratio 18 No Units Normal 10-20 [facility] Comment on above: Performed By: #### 2 258808 #### [facility] [address] [place] [address] Calcium [Mass/Vol] 8.9 mg/dL Normal 8.9-11.1 [facility] Comment on above: Performed By: #### 2 579013 #### [facility] [address] [place] [address] Chloride [Moles/Vol] 104 mmol/L Normal 101-111 [facility] Comment on above: Performed By: #### 2 003802 #### [facility] [address] [place] [address] Creatinine [Mass/Vol] 0.6 mg/dL Normal 0.5-1.3 [facility] Comment on above: Performed By: #### 2 797046 #### [facility] [address] [place] [address] Globulin (S) [Mass/Vol] 3.0 g/dL Normal 1.4-4.0 [facility] Comment on above: Performed By: #### 2 408534 #### [facility] [address] [place] [address] Glucose [Mass/Vol] 92 mg/dL Normal 55-199 [facility] Comment on above: Performed By: #### 2 045784 #### [facility] [address] [place] [address] Potassium [Moles/Vol] 3.7 mmol/L Normal 3.5-5.3 [facility] Comment on above: Performed By: #### 2 763488 #### [facility] [address] [place] [address] Protein [Mass/Vol] 6.8 g/dL Normal 6.0-7.8 [facility] Comment on above: Performed By: #### 2 581378 #### [facility] [address] [place] [address] Sodium [Moles/Vol] 136 mmol/L Normal 135-145 [facility] Comment on above: Performed By: #### 2 746877 #### [facility] [address] [place] [address] Urea nitrogen [Mass/Vol] 11 mg/dL Normal 5-21 [facility] Comment on above: Performed By: #### 2 479975 #### [facility] [address] [place] [address] Lipid Panelon 08-01-2025 Cholesterol [Mass/Vol] 239 mg/dL High 120-200 [facility] Comment on above: Performed By: #### 2 628920 #### [facility] [address] [place] [address] Cholesterol in HDL [Mass/Vol] 88 mg/dL Invalid Interpretation Code [facility] Comment on above: Result Comment: '>= 60 LOW RISK' '<= 40 HIGH RISK' Performed By: #### 2 [id number] #### [facility] [address] [place] [address] Cholesterol in LDL [Mass/Vol] 144 mg/dL High <=129 [facility] Comment on above: Performed By: #### 2 768762 #### [facility] [address] [place] [address] Cholesterol in VLDL [Mass/Vol] 40 mg/dL Normal 7-40 [facility] Comment on above: Performed By: #### 2 588295 #### [facility] [address] [place] [address] Triglyceride [Mass/Vol] 202 mg/dL High <=149 [facility] Comment on above: Performed By: #### 2 806164 #### [facility] [address] [place] [address] eGFRon 08-01-2025 eGFR 123 mL/min/1.73 m2 Normal >=59 [facility] Comment on above: Performed By: #### 1 [id number] #### [facility] [address] [place] [address] AFP, SERUM, OPEN SPINA BIFID Aon 07-18-2025 AFP MOM 0.95 . [facility] AFP VALUE 59.2 ng/mL . [facility] COMMENT: Comment . [facility] Comment on above: Amy Ramos , Ph.D., [facility] Director References: Available Upon Request. Multiples Of Median Cutoffs For AFP Elevations Hsieh 2.5 Black 2.8 IDD 2.0 Twins 4.5 Abbreviation Definitions IDD - Insulin Dep Diabetes OSBR - Open Spina Bifida Risk For further inquiries contact [email or web address] [facility] at [phone]. This test was developed and its performance characteristics determined by [employer] It has not been cleared or approved by the Food and Drug Administration. Performed at: [facility] [employer] [address] [place], [place] [id number] [employer]: Dona Justin [facility], Phone: [phone] GEST. AGE ON COLLECTION DATE 20.6 . weeks [facility] GESTAT. AGE BASED ON LMP . [facility] Comment on above: Recalculations are n ot recommended when gestational dating by LMP and ultrasound are within 10 days. INSULIN DEP DIABETES No . [facility] INTERPRETATION Comment . [facility] Comment on above: Interpretation: Scre en Negative [...] Customer Services to discuss available options. The [place] recommends amniocentesis be offered to women age 35 and older. [age] [facility] MULTIPLE GESTATION No . [facility] OS[place] [address] [place] [id number] . [facility] RACE . [facility] RESULTS Report . [facility] TEST RESULTS: Negative . [facility] WEIGHT 146 . lbs [facility] N N LMP [id number] 2 17 N 1 Y 146 N N N N N White/ [facility] US OB 14+ WEEKS ANATOMY SCAN on [...] II, MD, PHD at 16-Jul-2025 08:07:07 AM [facility] Normal Not Available Comment on above: Order Comment: US OB ANATOMY SINGLE W US OB CERVICAL LENGTH Estimated Date of Delivery: 11/28/25 Gestational Age as of 06/22/2025: 17w2d Urinalysis macro (dipstick) panel (U)on 07-15-2025 Bilirubin, UA Negative Negative - 4(70) +++ mg/dL [facility] Blood, UA Negative Negative - 50 Teodoro/mcL [facility] Clarity, UA Clear [facility] Color, UA Yellow [facility] Glucose, UA Negative Negative - 2000(110) ++++ mg/dL [facility] Interpretation and review of laboratory results Normal [facility] Ketones, UA Negative Negative - 160(16) ++++ mg/dL [facility] Leukocytes, UA Negative Negative - 500+++ Robinson/mcL [facility] Nitrite, UA Negative Negative - Positive [facility] pH, UA 6 5 - 9 [facility] Protein, UA Negative Negative - 2000(20) ++++ mg/dL [facility] Spec Grav, UA 1.01 1 - 1.03 [facility] Urobilinogen, UA 1.0 0.2 - 12 mg/dL [facility] RECURRENT VAGINITIS (HTRX)on 06-24-2025 ATOPOBIUM VAGINAE 0 [facility] ATOPOBIUM VAGINAE Not detected [facility] BVAB 2,3 (BACTERIAL VAGINOSIS ASSOCIATED BACTERIA 2, 3); MOBILUNCUS SPP 0 [facility] BVAB 2,3 (BACTERIAL VAGINOSIS ASSOCIATED BACTERIA 2, 3); MOBILUNCUS SPP Not detected [facility] RADHA ALBICANS, PARAPSILOSIS, TROPICALIS 0 [facility] RADHA ALBICANS, PARAPSILOSIS, TROPICALIS Not detected [facility] RADHA GLABRATA 0 [facility] RADHA GLABRATA Not detected [facility] RADHA KRUSEI 0 [facility] RADHA KRUSEI Not detected [facility] CHLAMYDIA TRACHOMATIS 0 [facility] CHLAMYDIA TRACHOMATIS Not detected N [facility] GARDNERELLA VAGINALIS 17.967 Abnormal [facility] GARDNERELLA VAGINALIS Detected Abnormal [facility] Interpretation and review of laboratory results Abnormal [facility] MEGASPHAERA (TYPES 1, 2) 0 [facility] MEGASPHAERA (TYPES 1, 2) Not detected [facility] MYCOPLASMA GENITALIUM 0 [facility] MYCOPLASMA GENITALIUM Not detected N [facility] NEISSERIA GONORRHOEAE 0 [facility] NEISSERIA GONORRHOEAE Not detected N [facility] TRICHOMONAS VAGINALIS 0 [facility] TRICHOMONAS VAGINALIS Not detected N [facility] Urinalysis macro (dipstick) panel (U)on 06-22-2025 Bilirubin, UA Negative Negative - 4(70) +++ mg/dL [facility] Blood, UA Negative Negative - 50 Teodoro/mcL [facility] Clarity, UA Clear [facility] Color, UA Yellow [facility] Glucose, UA Negative Negative - 1999(110) ++++ mg/dL [facility] Interpretation and review of laboratory results Normal [facility] Ketones, UA Negative Negative - 160(16) ++++ mg/dL [facility] Leukocytes, UA Negative Negative - 500+++ Robinson/mcL [facility] Nitrite, UA Negative Negative - Positive [facility] pH, UA 6 5 - 9 [facility] Protein, UA Negative Negative - 1999(20) ++++ mg/dL [facility] Spec Grav, UA 1.005 1 - 1.03 [facility] Urobilinogen, UA 1.0 0.2 - 12 mg/dL [facility] Urinalysis macro (dipstick) panel (U)on 05-25-2025 Bilirubin, UA Negative Negative - 4(70) +++ mg/dL [facility] Blood, UA Negative Negative - 50 Teodoro/mcL [facility] Clarity, UA Clear [facility] Color, UA Yellow [facility] Glucose, UA Negative Negative - 1999(110) ++++ mg/dL [facility] Interpretation and review of laboratory results Normal [facility] Ketones, UA Negative Negative - 160(16) ++++ mg/dL [facility] Leukocytes, UA Positive Negative - 500+++ Robinson/mcL [facility] Comment on above: small Nitrite, UA Negative Negative - Positive [facility] pH, UA 6.5 5 - 9 [facility] Protein, UA Negative Negative - 1999(20) ++++ mg/dL [facility] Spec Grav, UA 1.01 1 - 1.03 [facility] Urobilinogen, UA 0.2 0.2 - 12 mg/dL [facility] BOX TESTon 05-04-2025 BOX TEST SENT OUT [facility] BOX1 berhane [facility] BOX2 05/04/25 [facility]ly [facility] CLINISYNC CBC without diffon Hematocrit (Bld) [Volume fraction] 39.8 % [facility] Hemoglobin (Bld) [Mass/Vol] 13.2 g/dL [facility] Platelets (Bld) [#/Vol] 390 10*3/uL [facility] Rbc Mcv (Fl) By Automated Count 84.7 [facility] Drug Screen, Urineon 025 Amphetamine/Methamphet amine Negative [facility] Barbiturates Negative [facility] Benzodiazepines Negative [facility] Cocaine Metabolite Negative [facility] Methadone Negative [facility] Opiates Negative [facility] Oxycodone Negative [facility] Phencyclidine Negative [facility] Thc Marijuana, Urine Negative [facility] HBV surface Ag IA Qlon 05-04 Hepatitis B Surface Antigen Negative [facility] HCV Ab IA Qlon 05-04-2025 HCV Ab Ql (S) Non-Reactive [facility] HIV 1+2 Ab+HIV1 p24 Ag IA Ql on 05-04-2025 HIV 1&2 AB/AG Non-Reactive [facility] Hemoglobin A1con 05-04-2025 HbA1c (Bld) [Mass fraction] 5.3 % 4.0 - 6.0 % [facility] No Panel Informationon 05-04 [facility] Rubella IGG immune statusOrd ered By: Angeline Velasquez on 05-04-2025 Rubella immune IgG [facility] Type and screenon 05-04-2025 Abo/Rh(D) Positive [facility] HCG ( test) Ql (U)o n 05-01-2025 Interpretation and review of laboratory results Abnormal [facility] Preg Test, Ur Positive Negative [facility] US OB TRANSVAGINALon [address] [place] [address] Ultrasound Report Signed Patient: DRISS COPE MR#: [id number] : 1995 Acct:[id number] Age/Sex: 30 / F ADM Date: 05/01/25 Loc: US Attending Dr: Nathan Ppo D.O. Ordering Physician: Nathan Pop D.O. Date of Service: 05/01/25 Procedure(s): US OB transvaginal Accession Number(s): [id number] cc: Nathan Pop D.O.; Physician,Non-Staff [place] [address] Patient Name: DRISS COPE MRN: [id number] date: 1995 Sex: F Assigned Patient Location: US Current Patient Location: US Accession/Order Number: [id number] Exam Date: 05/01/2025 08:57 Report Date: 05/01/2025 [...] Faria M.D. 05/01/2025 9:01 AM Dictation Location: [employer] Electronically authenticated by: [id number] Y Date: 05/01/2025 09:01 Dictated By: Will Faria M.D. Signed By: 05/01/25903 DD/ 0 TD/TT: Therapeutic Case Manager: [facility] Radiology, Radiologandra yo MD - 05/01/2025 [place] [address] Ultrasound Report Signed Patient: DRISS COPE MR#: [id number] : 1995 Acct:[id number] Age/Sex: 30 / F ADM Date: 05/01/25 Loc: US Attending Dr: Nathan Pop D.O. Ordering Physician: Nathan Pop D.O. Date of Service: 05/01/25 Procedure(s): US OB transvaginal Accession Number(s): [id number] cc: Nathan Pop D.O.; Physician,Non-Staff [place] [address] Patient Name: DRISS COPE MRN: [facility]:[id number] date: 1995 Sex: F Assigned Patient Location: US Current Patient Location: US Accession/Order Number: [id number] Exam Date: 05/01/2025 08:57 Report Date: 05/01/2025 [...] Faria M.D. 05/01/2025 9:01 AM Dictation Location: [employer] Electronically authenticated by: [id number] Y Date: 05/01/2025 09:01 Dictated By: Will Faria M.D. Signed By: 05/01/25903 DD/ 0 TD/TT: Therapeutic Case Manager: [facility] Radiology Study observation (narrative) [facility] US OB TRANSVAGINALOrdered By : Radiologist Radiology on 05-01-2025 [facility] Work Phone: Urinalysis macro (dipstick) panel (U)on 05-01-2025 Bilirubin, UA Negative Negative - 4(70) +++ mg/dL [facility] Blood, UA Negative Negative - 50 Teodoro/mcL [facility] Clarity, UA Clear [facility] Color, UA Yellow [facility] Glucose, UA Negative Negative - 1999(110) ++++ mg/dL [facility] Interpretation and review of laboratory results Normal [facility] Ketones, UA Negative Negative - 160(16) ++++ mg/dL [facility] Leukocytes, UA Negative Negative - 500+++ Robinson/mcL [facility] Nitrite, UA Negative Negative - Positive [facility] pH, UA 5.5 5 - 9 [facility] Protein, UA Negative Negative - 2000(20) ++++ mg/dL [facility] Spec Grav, UA 1.02 1 - 1.03 [facility] Urobilinogen, UA 1.0 0.2 - 12 mg/dL [facility] CHEMISTRYOrdered By: SYSTEM SYSTEM on 03-13-2025 Progesterone [...] Progesterone Lvl 31.35 ng/mL Invalid Interpretation Code [facility] Comment on above: Result Comment: 'F N ON FOLLICULAR = 0.10 - 0.60' 'LUTEAL = 3.00 - 17.5' 'MIDLUTEAL = 3.30 - 18.6' 'POST-MENOPAUSE = 0.10 - 0.40' '-FIRST TRIMESTER = 8.30 - 66.5' 'SECOND TRIMESTER = 18.9 - 66.1' 'THIRD TRIMESTER = 35.8 - 312.4' 'MALES = 0.14 - 2.06' Performed By: #### 2 [id number] #### [facility] [address] [place] [address] Progesteroneon 02-02-2025 Progesterone 0.2 ng/mL Normal . [facility] Comment on above: Result Comment: Foll icular phase 0.1 - 0.9 Luteal phase 1.8 - 23.9 Ovulation phase 0.1 - 12.0 First trimester 11.0 - 44.3 Second trimester 25.4 - 83.3 Third trimester 58.7 - 214.0 Postmenopausal 0.0 - 0.1 Performed at: [facility] [address] [id number] Cradle Placer: Cm Sandoval PhD, Phone: [phone] PERFORMED BY: [address] [address] PATHOLOGIST MANAGER OF FINANCIAL REPORTING ARNULFO THOMAS M.D. Performed By: #### P [...] Foy MD Transcribed by: ELOISA Technologist: GIO [facility] US Pelvis Non-OB Completeon 01-22-2025 US Pelvis [...] Gonzalez MD Transcribed by: ELOISA Technologist: GIO [facility] IGP,APTIMA HPV,AGE GDLNon AGE GDLN ACOG TESTING Note . [facility] Comment on above: TESTS RESULT FLAG UN ITS REF RANGE LAB Clinician Provided Cytology Information Source.............Cervix;Endocervix No. of containers..01 ThinPrep Vial Age Gina MCFADDEN Sarah... FLAG LEGEND: L-Low Normal,H-High Normal,LL-Alert Low,HH-Alert High <-Panic Low,>-Panic High,A-Abnormal,AA-Critical Abnormal Performed at: 01 =G [address] [place] [address] Loren Oneal MD, IGP, RFX APTIMA HPV ASCU Note . [facility] Comment on above: TESTS RESULT FLAG UN ITS REF RANGE LAB DIAGNOSIS: 02 NEGATIVE FOR INTRAEPITHELIAL LESION OR MALIGNANCY. Specimen adequacy: 02 Satisfactory for evaluation. Endocervical and/or squamous metaplastic cells (endocervical component) are present. Performed by: Sophia Calzada, Traveling Engineer ([facility]) . 02 [...] <-Panic Low,>-Panic High,A-Abnormal,AA-Critical Abnormal Performed at: [address] [address] Loren Oneal MD, Performed at: = - [address] [id number] Cradle Placer: Loren Oneal MD, Phone: [phone] Performed at: [facility] [address] [id number] Cradle Placer: Loren Oneal MD, Phone: [phone] [facility] Tele[facility] ([facility]) DRISS COPE ([id number]) 1995 F Date Time Provider Department 04/29/24 CHARLENE RODRIGUEZ [facility] During your visit today, we recorded [...] Encounter Status:Closed by CHRISTA GARCES on 04/29/24 [facility] 04-25-2024 TONYA Telephone (Q) DRISS COPE ([id number]) 1995 F Date Time Provider Department 04/25/24 GEORGEBARBARA CHARLENE [facility] During your visit today, we recorded the following information about you: EmilypearlAnna 04/25/2024 1:10 PM Signed Pt got in sooner for surgery with her local coding quality coordinator. Please cancel surgery and all pre and [...] Status:Closed by ANNA DE LEON on 04/25/24 [facility] DRISS COPE ([id number]) 1995 F Date Time Provider Department 12/12/23 CHARLENE RODRIGUEZ [facility] During your visit today, we recorded [...] Encounter Status:Closed by CHRISTA GARCES on 12/12/[address] [facility] CNOVon 12-10-2023 CNOV Office Visit ([facility] ) DRISS COPE ([id number]) 1995 F Date Time Provider Department 12/10/23 10:30 AM CHARLENE RODRIGUEZ [facility] During your visit today, we recorded the following information about you: Pulse Blood pressure Weight 98/minute 124/84 68.9 kg Charlene Rodriguez DO 12/10/2023 3:14 PM Signed [facility] SECTION FOR MINIMALLY INVASIVE GYNECOLOGIC SURGERY OUTPATIENT VISIT DATE 12/10/2023 OUTPATIENT VISIT TYPE Follow-up visit PRIMARY CARE PHYSICIAN: Cruz Rodríguez [address] [place] [address] REFERRING PHYSICIAN: Self CHIEF COMPLAINT: No chief [...] MRI: no evidence of 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 Normal [facility] Cytology Cervical or vaginal smear or scraping studyon 08-15-2023 [facility] 08-02-2023 CNPN Telephone ([facility]) DRISS COPE ([id number]) 1995 F Date Time Provider Department 08/02/23 CHARLENE RODRIGUEZ [facility] During your visit today, we recorded [...] Signed PA for orilissa completed via Cover [place]. Driss Cope (Morales: [id number]) - [id number] Orilissa 150MG tablets Status: Sent To Plan [...] Fully Assessed Reason for Visit: Insurance Authorization [[id number]] Cmt: Orilissa Prescriptions as of 08/09/2023 - [...] Encounter Status:Closed by LESLEY LYNN on 08/02/[address] [facility] Guru 07-16-2023 CNOV Office Visit ([facility] ) DRISS COPE ([id number]) 1995 F Date Time Provider Department 07/16/23 11:30 AM CHARLENE RODRIGUEZ During your visit today, we recorded the following information about you: Blood pressure Last Period 136/90 07/08/23 Charlene Rodriguez DO 07/16/2023 12:41 PM Signed [facility] SECTION FOR MINIMALLY INVASIVE GYNECOLOGIC SURGERY OUTPATIENT VISIT DATE 07/16/2023 OUTPATIENT VISIT TYPE Follow-up visit PRIMARY CARE PHYSICIAN: Cruz Rodríguez [address] [place] [address] REFERRING PHYSICIAN: Cruz Rodríguez CHIEF COMPLAINT: No [...] additional bowel lesions identified 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 Normal [facility] MRI FEMALE PELVIS WO/W IVCON on 06-12-2023 MRI FEMALE PELVIS WO/W IVCON * * *Final Report* * * DATE OF EXAM: Jun 12 2023 2:47PM [facility] 0713 - MRI FEMALE PELVIS WO/W [...] additional findings. IMPRESSION: No deep infiltrating endometriosis. Therapeutic Case Manager: DAVID Transcribe Date/Time: Jun 12 2023 2:54P Dictated by : ASHLEY DUKE MD This examination was interpreted and the report reviewed and electronically signed by: SONIDO FLAHERTY MD on Jun 12 2023 4:51PM EST [id number] Normal [facility] CNPNon 05-11-2023 CNPN Telephone ([facility]) DRISS COPE ([id number]) 1995 F Date Time Provider Department 05/11/23 CHARLENE RODRIGUEZ [facility] During your visit today, we recorded the following information about you: Tawana Nair [facility] 05/11/2023 1:21 PM Signed Reason for call: [...] Takes aygestin 5mg daily. She did not picker packer flexeril. Encourage to picker packer the flexeril as this will help with the cramping. Reviewed red flag bleeding symptoms that require trip to ER (soaking greater than one overnight pad per hour, chest pain, shortness of breath, fatigue, palpitations).. Advised keep appt. Gives verbal understanding. Appointments for Next 60 Days Date Time Provider Location Dept Phone 05/17/2023 1:00 PM CHARLENE RODRIGUEZ [facility] Stro [phone] Christa Suárez RN Allergies As of Date: 05/11/2023 (No Known Allergies) Date Reviewed: 05/09/2023 Reviewed by: Srinivasa Downs APRN.PHOTOFINISHING LABORATORY WORKER - Fully Assessed Reason for Visit: Vaginal [...] Encounter Status:Closed by CHRISTA WILLINGHAM on 05/11/[address] [facility] CNOVon 05-01-2023 [facility] DRISS COPE ([id number]) 1995 F Date Time Provider Department 05/01/23 10:30 AM SRINIVASA DOWNS [facility] During your visit today, we recorded the [...] symptoms GI - Always constipated. 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 Normal [facility] CHEMISTRYOrdered By: SYSTEM SYSTEM on 01-31-2023 [...] rate/Area] mL/min/1.73 m2 Normal >=59mL/min/ 1.73 m2 [facility] Chem S Globulin (S) [...] Ql (Bld) Present (01/31/23 2:10 PM) Normal [facility] HemeManSS Erythrocyte distribution width (RBC) [Ratio] 15.8 % High 10.9 - 14.2 % [facility] HemeAutoSS Hematocrit (Bld) [Volume fraction] 31.7 % Low 34.0 - 46.0 % [facility] HemeAutoSS Hemoglobin (Bld) [Mass/Vol] 9.8 g/dL Low 12.0 - 16.0 gm/dL FT HemeAutoSS Hypochromia Auto Ql (Bld) Present (01/31/23 2:10 PM) Normal [facility] HemeManSS MCH (RBC) [Entitic mass] 22.8 pg Low 27.0 - 34.0 pg FT HemeAutoSS MCHC (RBC) [Mass/Vol] 30.9 g/dL Low 31.4 - 36.0 gm/dL [facility] HemeAutoSS MCV (RBC) [Entitic vol] 73.9 fL Low 80.0 - 100.0 fL [facility] HemeAutoSS Morphology Blair (Bld) [Interp] See Morphology (01/31/23 2:10 PM) Normal [facility] HemeManSS Platelet mean volume (Bld) [Entitic vol] [...] PM) Normal Negative [facility] UA Auto SS Mayfield.plasma/Mayfield .RBC (Bld) [Mass ratio] 0-3 /HPF Normal [...] [facility] UA Auto SS Urobilinogen Qn (U) 0.9219525 {Aspen'U}/dL Normal 0.0 - 1.0 EU/dL [facility] [...] rate/Area] mL/min/1.73 m2 Normal >=59mL/min/ 1.73 m2 [facility] Chem S GFR/1.73 sq M.predicted among non-blacks MDRD (S/P/Bld) [Vol rate/Area] mL/min/1.73 m2 Normal >=59mL/min/ 1.73 m2 [facility] Chem S Glucose [Mass/Vol] [...] AM) Normal Negative [facility] UA Auto SS Mayfield.plasma/[place] .RBC (Bld) [Mass ratio] 4-20 /HPF Normal [...] [facility] UA Auto SS Urobilinogen Qn (U) 0.9309886 {Aspen'U}/dL Normal 0.0 - 1.0 EU/dL FT UA Auto SS WBC Auto Ql (U) Negative (12/30/22 8:53 AM) Normal Negative [facility] UA Auto SS WBC LM.HPF (Urine sed) [#/Area] 0-5 /HPF Normal 0-5/HPF [facility] UA Auto SS Office Visiton 12-05-2022 Follow-up visit [id number] Aislinn Cope 1995 F Date Provider Department Center 12/05/2022 [id number]-ENISPAXLC, GINA [facility] WOM None Chart Close Cosign Required by: Opal Ross MD[VARUND] No family history on file Level of Service:84440 ND OFFICE/OUTPATIENT ESTABLISHED LOW MDM 20-29 MIN (GE,GC) Reason for Visit and Comments: Blood Pressure Check [299] Normal [facility] Progress Noteon 12-05-2022 Progress Note --- Attestation signed by Opal Ross MD at 12/05/2022 3:19 PM [facility]: This patient was seen in the [facility] by the resident. I reviewed and [...] weeks (around 01/02/2023) for Visit . Normal [facility] Progress Note Vital signs BP 127/87 Weight 149.2lb Pulse 106 Temp 96.7 Normal [facility] Progress Noteon 12-02-2022 Progress Note Late [...] to discharge. Will make patient aware. Normal [facility] Progress Note VAGINAL DELIVERY POST DAY [...] Vanessa Zambrano DO 12/02/2022, 5:09 AM Normal [facility] 42on 12-01-2022 42 22.5mm flanges given to patient. Encouraged her to call for observation of pump session and smaller flanges. Martha in NICU to assist with personal pump. Normal [facility] CARECOORDon 12-01-2022 CARECOORD 27 year old [...] home. Denies any concerns at this time. [facility] Progress Noteon 12-01-2022 Progress Note NOTE - [...] with more than 50% of the total zhar-as-agew time of the visit in counseling/coordination of care. , 9:22 AM [facility] 42on 11-30-2022 42 Swabs given to patie nt and educated how to use and [facility] Breast pump use indicated for this pt. Due to: infant in [facility] breast pump, supplies kit, swabs and colostrum [...] pump Told patient to check with in [facility] for smaller flange sizes [facility] Labor and Delivery Noteon Labor and Delivery [...] PreEwSF Post-operative Diagnosis: Live Born female Delivering Arborist & Obiee Consultant(s): Dr. Bowden; Dr. Kramer Infant Information: Information for the patient's : Francie Cope [[id number]] Information for the patient's : Francie Cope [[id number]] Description: normal Meconium Noted: No Anesthesia: epidural [...] for: RUBELLAMILADYG Irina Nia, 11/30/2022, 4:04 AM [facility] Progress Noteon 11-30-2022 Progress Note Chauhan catheter inser tank by Andi Bacon RN, catheter drained and emptied for 900cc. Catheter secured to leg. Normal [facility] Progress Note Patient up to bathro om but remains unable to void. Bladder scan completed and reads >570. Sent secure message to Dr. Ruiz letting her know the above. Instructed to place chauhan catheter. [facility] Progress Note Secure message sent to Dr. Gamez stating patient is having difficulty voiding, patient's perineum is very swollen, and that patient was straight cathed for 950ml at noon. Received order for benadryl to help with swelling. Normal [facility] Progress Note Nutrition rescreen completed. Chart reviewed. Patient to be monitored and followed by the diet rf technician. CRISS Oshea [facility] Progress Note Patient unable to vo id, last straight cathed at 0400. Bladder scan obtained for >928 ml, fundus +2 and shifted to right. Patient straight cathed on attempt x2 by Andi Bacon RN for 950cc. Will continue to monitor. Normal [facility] CAREPLNon 11-29-2022 CAREPLN The patient will continue to make cervical change. Clotilde Mg RN [facility] Laboratory - Hematology and Cell countsOrdered By: Lucrecia Cervantes on 11-29-2022 Platelets (Bld) [#/Vol] 386 10*3/uL 140 - 440 10*3/uL [facility] Platelets (Bld) [#/Vol]Order ed By: Lucrecia Cervantse on 11-29-2022 Interpretation and review of laboratory results Normal [facility] S. agalactiae DNA TENA+probe Ql (Unsp spec)on 11-29-2022 Group B Strep Screen Not detected Not Detected [facility] Interpretation and review of laboratory results Normal [facility] Methodology: real-ti me PCR [facility] ABO and Rh group Confirm Nom (Bld)on 11-28-2022 ABO group Nom (Bld) O [facility] D Ag Ql (RBC) Positive [facility] Blood type and Crossmatch pa chitra (Bld)on 11-28-2022 ABO group Nom (Bld) O [facility] Blood group antibody screen GEL Ql Negative [facility] D Ag Ql (RBC) Positive [facility] CBC panel Auto (Bld)Ordered By: Lauren Ayers on 11-28-2022 Erythrocyte distribution width (RBC) [Ratio] 13.3 % 11.5 - 14.5 % [facility] Hematocrit (Bld) [Volume fraction] 33.8 % Low 35.0 - 47.0 % [facility] Hemoglobin (Bld) [Mass/Vol] 11.2 g/dL Low 11.7 - 16.0 g/dL [facility] Interpretation and review of laboratory results Abnormal [facility] MCH (RBC) [Entitic mass] 28.0 pg 26.0 - 34.0 pg [facility] MCHC (RBC) [Mass/Vol] 33.1 % 32.0 - 36.0 % [facility] MCV (RBC) [Entitic vol] 84.4 fL 80.0 - 98.0 fL [facility] Platelet mean volume (Bld) [Entitic vol] 8.3 fL 7.4 - 12.4 fL [facility] Platelets (Bld) [#/Vol] 319 10*3/uL 140 - 440 10*3/uL [facility] RBC (Bld) [#/Vol] 4.00 10*6/uL 3.8 - 5.20 10*6/uL [facility] WBC (Bld) [#/Vol] 18.9 10*3/uL High 3.6 - 10.7 10*3/uL [facility] Comprehensive metabolic 1998 panelon 11-28-2022 Albumin [Mass/Vol] 3.9 g/dL 3.5 - 5.0 g/dL [facility] ALP [Catalytic activity/Vol] 201 U/L High 38 - 126 U/L [facility] ALT [Catalytic activity/Vol] 15 U/L 0 - 34 U/L [facility] Anion gap [Moles/Vol] 7 mmol/L 3 - 13 mmol/L [facility] AST [Catalytic activity/Vol] 28 U/L 15 - 46 U/L [facility] Bilirubin [Mass/Vol] 0.9 mg/dL 0.2 - 1 .3 mg/dL [facility] Calcium [Mass/Vol] 8.2 mg/dL Low 8.4 - 10. 4 mg/dL [facility] Chloride [Moles/Vol] 109 mmol/L High 98 - 10 7 mmol/L [facility] CO2 [Moles/Vol] 17 mmol/L Low 22 - 30 mmol/L [facility] Creatinine [Mass/Vol] 0.53 mg/dL 0.52 - 1.04 mg/dL [facility] GFR/1.73 sq M.predicted MDRD (S/P/Bld) [Vol rate/Area] - PINF [facility] Comment on above: Calculation based on the Chronic Kidney Disease Epidemiology Collaboration (CKD-EPI) equation refit without adjustment for race Glucose [Mass/Vol] 158 mg/dL High 70 - 100 mg/dL [facility] Interpretation and review of laboratory results Abnormal [facility] Potassium [Moles/Vol] 4.1 mmol/L 3.5 - 5.1 mmol/L [facility] Protein [Mass/Vol] 7.5 g/dL 6.3 - 8.2 g/dL [facility] Sodium [Moles/Vol] 133 mmol/L Low 135 - 145 mmol/L [facility] Urea nitrogen [Mass/Vol] 5 mg/dL Low 7 - 17 mg/dL [facility] [facility] Hematology and Cell countsOrdered By: Shruthi Fontana on 11-28-2022 Platelets (Bld) [#/Vol] 335 10*3/uL 140 - 440 10*3/uL [facility] Platelets (Bld) [#/Vol]Order ed By: Shruthi Fontana on 11-28-2022 Interpretation and review of laboratory results Normal [facility] CHEMISTRYOrdered By: Guide Financial SYSTEM on 11-27-2022 Free T4 index Calc [...] PM) Normal Negative [facility] UA Auto SS Mayfield.plasma/Mayfield .RBC (Bld) [Mass ratio] 4-20 /HPF Normal [...] [facility] UA Auto SS Urobilinogen Qn (U) 0.3475436 {Aspen'U}/dL Normal 0.0 - 1.0 EU/dL [facility] [...] rate/Area] mL/min/1.73 m2 Normal >=59mL/min/ 1.73 m2 [facility] Chem S Globulin (S) [...] AM) Normal Negative [facility] UA Auto SS Mayfield.plasma/Mayfield .RBC (Bld) [Mass ratio] 0-3 /HPF Normal [...] [facility] UA Auto SS Urobilinogen Qn (U) 0.0164996 {Aspen'U}/dL Normal 0.0 - 1.0 EU/dL [facility] [...] a) No falls within the last year CE-JQGRL-Veu man 320 Work Phone: Last menstrual period start date unsure HH-MWDME-Vdp man 320 Work Phone: Tobacco use status CPHS b) No BN-SLBMC-Tkw man 320 Work Phone: CREATIVE PROJECT MANAGER - Office Visiton 01-24 CREATIVE PROJECT MANAGER - Office Visit Diagnoses/Problems Assessed Endometriosis (617.9) (N80.9) Orders Start: Orilissa 200 MG Oral Tablet; take 1 tablet by mouth twice a day Provider Impressions 26 yo 1. endometriosis: discussed options continue norethindrone rx'd orilissa 200 mg bid rtc in 3 months Chief Complaint patient here to discuss pain related to endometriosis, declined analytical clerk. 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 History of Present Hsrrgzh41 yo presents as a follow up for [...] again engaged x 1 year working at [employer] in [place] Review of Systems Constitutional: no fever, no [...] hours Vitals Vital Signs Recorded: 09Feb2022 11:41AM Olstgumi920 Idzmotpij87 Height5 ft 2 in Mtcvtb449 lb BMI Fdpovddhkj32.51 kg/m2 BSA Calculated1.61 Tobacco Useb) No Fall [...] Tashi Lopez MD 09/29/21 Final result Normal [facility] CREATIVE PROJECT MANAGER - Office Visiton 07-0 CREATIVE PROJECT MANAGER - Office Visit Diagnoses/Problems Assessed Anxiety (300.00) (F41.9) Orders Start: FLUoxetine HCl - 20 MG Oral Capsule; TAKE 1 CAPSULE Daily Provider Impressions 26 yo 1. endometriosis - discussed treatment options rx'd Prozac for mood rx'd norethindrone rtc in 3 months Chief Complaint patient to follow up on medication from last visit in march 2021, declined analytical clerk. 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 History of Present Cigryeb4 yo with endometriosis was on norethindrone d/c'd [...] hours Vitals Vital Signs Recorded: 02Jun2021 01:19PM Nrvtgvok501 Vjtslbkis55 Height5 ft 2 in Zoixuo325 lb BMI Pmsomrsndx91.58 kg/m2 BSA Calculated1.53 Tobacco Useb) No Fall Screeninga) No falls within the last year [id number] Pain Scale0 Signatures Electronically signed by : Charlene Rodriguez DO; Jun 03 2021 10:55AM EST (Author) Normal [facility] Chlamydia sp identified Org specific cx Nom (Genital specimen)Ordered By: Jackelyn Dela Cruz on 05-16-2021 External Chlamydia Screen Negative Negative [facility] HBV surface Ag IA Qlon 05-16 External Hepatitis B Surface Ag Negative Negative, None Detected [facility] HIV 1+2 Ab and HIV1 p24 Ag I A.rapid Nom (S/P/Bld)on 05-16-2021 HIV-1/HIV-2 Ab Negative [facility] No Panel Informationon 05-16 External Gonorrhea Screen Negative Negative [facility] External Rubella IGG Quantitation Positive [facility] No Panel InformationOrdered By: Jackelyn Dela Cruz on 05-16-2021 [facility] Reagin Ab RPR Ql (S)on 05-16 External RPR Non-Reactive Borderline, Nonreactive , Weakly Reactive, Equivocal [facility] CREATIVE PROJECT MANAGER - Office Visiton 03-27 CREATIVE PROJECT MANAGER - Office Visit Diagnoses/Problems Assessed Endometriosis (617.9) (N80.9) Never smoker Orders Stop: Norethindrone Acetate 5 MG Oral Tablet Tobacco Use Screening; Status:Complete; Done: [id number] Provider Impressions 26 yo 1. endometriosis: rx'd norethindrone referral to pelvic floor PT rtc in 3-6 months if continues to have pain, will consider centrally acting neuromodulator Chief Complaint Patient presents today for f/u for endometriosis PAP per patient 2019 WNL Brand Planner declined -CATY,COLD STRIP ROLLER LMP 04/11/21 History of Present Hwocfoh69 yo with endometriosis bleeding once per month, [...] Apr 20 2021 11:04AM EST (Author) Normal [facility] Tobacco Screening.on 021 Fall risk assessment a) No falls within the last year IT-FSFSH-Wao man 320 Work Phone: Last menstrual period start date 11Apr2021 CJ-SYCXT-Ikf man 320 Work Phone: Tobacco Screening. b) No MG-OBG YN-Ris man 320 Work Phone: Radiologyon 04-14-2021 Kidney - bilateral Normal [facility]- Urology-[facility] [place] Work Phone: US RENAL BILATon 04-14-2021 US RENAL BILAT Patient Name: DRISS COPE STUDY: US RENAL BILAT; 04/14/2021 1:14 pm INDICATION: Recurrent UTI. COMPARISON: None. ACCESSION NUMBER(S): [id number] ORDERING CLINICIAN: NICHOLAS CHAU TECHNIQUE: Multiple images [...] ultrasound. Electronically signed by: GENEVIEVE BREEN MD [facility] Office Visit (Urology)on Follow-up visit Diagnoses/Problems Assessed Recurrent UTI (599.0) (N39.0) Orders Recurrent UTI Start: Nitrofurantoin Monohyd Macro 100 MG Oral Capsule; TAKE 1 CAPSULE Other Please take one capsule after sexual intercourse to prevent UTI Rx By: Nicholas Chau; Dispense: 30 Days ; #:30 Capsule; Refill: 11;For: Recurrent UTI; ROSY = N; Verified Transmission to [facility] Ultrasound Kidney Bilateral; Status:Hold For - Scheduling; Requested for:[id number]; Perform:[facility]; Due:[id number]; Last Updated By:Isela Terrazas; 04/01/2021 9:16:17 AM;Ordered; [...] UTI; ROSY = N; Verified Transmission to [facility] Provider Impressions 26 year old female with history of endometriosis presents today via telehealth as a new patient for evaluation of recurrent UTIs. She reports getting UTIs at least once per month, noting occasional nocturia. Symptoms include burning, frequency, and back pain. She states that some UTIs are related to sexual intercourse but most are not. Patient reports she saw Dr. Booth at [facility] in [place], noting she was only treated with medications and urethral dilation for a supposed stricture. Denies gross hematuria. Patient is a non-smoker. Urine culture from [facility] on 03/04/21 was positive for E. [...] NPV - recurrent UTI History of Present Gegdijl8 year old female with history of endometriosis presents today via telehealth as a new patient for evaluation of recurrent UTIs. She reports getting UTIs at least once per month, noting occasional nocturia. Symptoms include burning, frequency, and back pain. She states that some UTIs are related to sexual intercourse but most are not. Patient reports she saw Dr. Booth at [facility] in [place], noting she was only treated with medications [...] affect. Signature (more content not included)... Normal [facility] [place] GASTRIC [place] SOLIDon 11-05-2020 [place] * * *Final Report* * * DATE OF EXAM: Nov 05 2020 12:26PM [facility] 0017 - [place] GASTRIC EMPTYING SOLID / PROCEDURE REASON: Nausea [...] 4 HOURS IS CONSISTENT WITH MILD GASTROPARESIS. Therapeutic Case Manager: DAVID Transcribe Date/Time: Nov 05 2020 1:09P Dictated by : BRUNO PREEA MD This examination was interpreted and the report reviewed and electronically signed by: BRUNO PEREA MD on Nov 05 2020 1:24PM EST [id number] Normal [facility] ANES POSTPROC EVALon 020 ANES POSTPROC EVAL HNO ID: [id number] Author: Austin Story Service: ? Author Type: [...] October 25, 2020 TIME: 2:52 PM CSN: [id number] [facility] ANES PRE-OPon 10-25-2020 ANES PRE-OP HNO ID: [id number] Author: Austin Story Service: ? Author Type: [...] October 25, 2020 TIME: 1:08 PM CSN: [id number] Normal [facility] SURGICAL PATHOLOGYon 020 SURGICAL PATHOLOGY Specimen originated from [facility] Specimen #: [id number] Submitting Physician: DAVID CRUZ MD FINAL DIAGNOSIS [...] in one cassette. Gross examination performed at [facility], [address] [place] [address] EJL 10/25/2020 7:59:40 PM Date of Report: 10/26/2020 Date of Procedure: 10/25/2020 Date of Receipt: 10/25/2020 Submitted by: DAVID CRUZ MD Location: [facility] Diagnostic interpretation performed at [facility], [address] [place] [address]. CLIA Number: [id number] Normal [facility] Reference [facility] Comment on above: Performed By: #### S #### See report for performing lab information. SURGICAL PATHOLOGY Specimen originated from [facility] Specimen #: [id number] Submitting Physician: DAVID CRUZ MD FINAL DIAGNOSIS [...] in one cassette. Gross examination performed at [facility], [address] [place] [address] 10/25/2020 7:59:40 PM Date of Report: 10/26/2020 Date of Procedure: 10/25/2020 Date of Receipt: 10/25/2020 Submitted by: DAVID CRUZ MD Location: [facility] Diagnostic interpretation performed at [facility], [address] [place] [address]. CLIA Number: [id number] Normal [facility] ABO/RH GROUP TESTon 09-01-20 20 ABO TYPE O Normal [facility] Comment on above: Performed By: #### V ERAB #### [facility] [address] [place] [address] RH TYPE Positive Normal [facility] Comment on above: Performed By: #### V ERAB #### [facility] [address] Surgical Pathology Dep artmenton 09-01-2020 [facility] Surgical Pathology Department Name DRISS COPE Pathologist: ASHLEY HURTADO MD Date of Procedure: 09/01/2020 Date Received: 09/01/2020 Date Reported 09/03/2020 Submitting Physician: CHARLENE RODRIGUEZ D.O. Location: [facility] External # FINAL DIAGNOSIS A. LEFT [...] D. Right pelvic sidewall peritoneum are 2 vwyi-rsd-gbh, irregular fragments of tissue measuring 1.3 x [...] in toto in one cassette. SB amisha/09/02/2020 [facility] Department of Pathology [address] [place] [address] Normal [facility] Comment on above: Performed By: #### A #### [facility] Surgical Pathology Department [address] [place] [address] History and Physical - Surge ry > [...] T&S: O+, COVID-19: negative OB Hx: None. 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 PMHx: endometriosis Surg Hx: diagnostic laparoscopy, appendectomy (2016) Meds: Meloxicam, [place]-Linyah, Norethindrone acetate Social Hx: No tobacco, no [...] the note. I personally evaluated the patient [id number] Attending Provider Inpatient Certification StatementObservation patient/other outpatient [...] 01-Sep-2020 10:04 by Charlene Rodriguez () Normal [facility] Homegoing Instructionson Homegoing Instructions Additional Instructions: Handouts Given: Topic 1Anesthesia Homegoing Instructions Topic 2Surgical Site Infection Handout Topic 3New Medication Education Topic 4Suggamedex handout Electronic Signatures: Aminata Gomez) (Signed 01-Sep-2020 16:07) Authored: Additional Instructions Last Updated: 01-Sep-2020 16:07 by Aminata Gomez) Normal [facility] Patient Profile - Preop v2on 09-01-2020 Patient Profile - Preop v2 Profile: Initial Info: How to be Addressedalexis Spoken Language PreferredEnglish Are you currently using the Personal Electronic Health Record or MonetateCAREyes Stated Reason for Admissionseeing if my endometriosis is back Primary Contact Name and Numberlogan [phone] Patient Belongingsclothing locker glasses with bf Medications Brought to Hospitalno General Health: Weight in kg55.6 kilogram(s) Weight in xpu243.5 pound(s) Weight Methodactual (measured) Scale Typestanding Height [...] Arrangementshouse Lives Withparent(s) Resource/Environmental Concernsnone [facility] Anticipated at Transitionnone Substance: [...] Learning Preferencesverbal instruction Cultural Considerationsnone Developmental Considerationsnone Jehovah'S Witness Considerationsnone Other learner availableno [place] RiskPatient location auto qualifies him/her for HIGH RISK. Are there any cultural, spiritual, zoroastrianism practices/values/needs that are important for us to [...] Surgery > 30 days 01-Sep-2020 03:42 Normal [facility] Preop Checkliston 09-01-2020 Preop Checklist Preop Checklist: Preop Checklist: Arrival [id number] Arrival Time12:30 Procedure Typelaparoscopic endometriosis excision NPO [id number] 00:00 ID Band Onyes Allergy Bandno known [...] 01-Sep-2020 12:35 by Sierra Kraft (RN) Normal [facility] ANTIBODY IDENT.on 08-31-2020 ANTIBODY IDENT. SEE BELOW Normal [facility] Comment on above: Result Comment: NO C LINICALLY SIGNIFICANT ANTIBODIES IDENTIFIED. Performed By: #### A BID #### [facility] [address] [place] [address] CBCon 08-30-2020 Erythrocyte distribution width (RBC) [Ratio] 12.1 % Normal 11.5 - 14.5 [facility] Comment on above: Performed By: #### C BC #### [address] [id number] Hematocrit (Bld) [Volume fraction] 39.6 % Normal 36.0 - 46.0 [facility] Comment on above: Performed By: #### C BC #### [address] [id number] Hemoglobin (Bld) [Mass/Vol] 12.6 g/dL Normal 12.0 - 16.0 [facility] Comment on above: Performed By: #### C BC #### [address] [id number] MCHC (RBC) [Mass/Vol] 31.8 g/dL Low 32.0 - 36.0 [facility] Comment on above: Performed By: #### C BC #### [address] [id number] MCV (RBC) [Entitic vol] 90 fL Normal 80 - 100 [facility] Comment on above: Performed By: #### C BC #### [address] [id number] Platelets (Bld) [#/Vol] 333 10*3/uL Normal 150 - 450 [facility] Comment on above: Performed By: #### C BC #### [address] [id number] RBC 4.42 x10E12/L Normal 4.00 - 5.20 [facility] Comment on above: Performed By: #### C BC #### [address] [id number] WBC (Bld) [#/Vol] 5.6 10*3/uL Normal 4.4 - 11.3 [facility] Comment on above: Performed By: #### C BC #### [address] [id number] CORONAVIRUS 2019, SCREEN ASY MPTOMATICon 08-30-2020 SARS-CoV-2 (COVID-19) RNA TENA+probe Ql (Unsp spec) Not detected Normal Not Detected [facility] Comment on above: Result Comment: This assay [...] patient management decisions. Fact sheet for providers: https://www.fda.gov/media/808963/download Fact sheet for patients: https://www.fda.gov/media/765816/download This test has received FDA Emergency Use Authorization (EUA) and has been verified by [facility] ([facility]). This test is only authorized for the duration of time that circumstances exist to justify the authorization of the emergency use of in vitro diagnostic tests for the detection of SARS-CoV-2 virus and/or diagnosis of COVID-19 infection under section 564(b)(1) of the Act, 21 U.S.C. 360bbb-3(b)(1), unless the authorization is terminated or revoked sooner. [facility] is certified under CLIA-88 as qualified to perform high complexity testing. Testing is performed in the [facility] laboratories located at [address] [place] [address]. Performed By: #### C OVSC #### [place] [address] Lab Specimen Source Nasal, Nasopharyngeal Normal [facility] Comment on above: Performed By: #### C OVSC #### [address] [place] [address] TYPE + SCREENon 08-30-2020 ABO TYPE O Normal [facility] Comment on above: Performed By: #### T +S #### [facility] [address] [place] [id number] RH TYPE Positive Normal [facility] Comment on above: Performed By: #### T +S #### [facility] [address] [place] [id number] ABO TYPE Canceled Normal [facility] Comment on above: Order Comment: TEST TYPE + SCREEN WAS CANCELLED, 08/30/2020 13:37 JOP. Performed By: #### T +S #### [facility] [address] [place] [id number] RH TYPE Canceled Normal [facility] Comment on above: Order Comment: TEST TYPE + SCREEN WAS CANCELLED, 08/30/2020 13:37 JOP. Performed By: #### T +S #### [facility] [address] [place] [id number] HOSPon 07-29-2020 HOSP Patient:Flavio Cope MRN: Height:5' [...] for the following basenames: K,HCT Progress Notes ([facility] REJ AV4): Jaquelin Wesley Jay 10/19/2020 2:35 [...] 1 10 oz. Bottle of Magnesium Citrate (Lemon/[place]) ? A test for COVID 19 test [...] toast without seeds (not multigrain); pretzels; waffles, Hebrew toast and pancakes; white rice, noodles, pasta, macaroni, peeled cooked potatoes; Special K, Rice Krispies or Troy Flakes cereals; ripe bananas; melons (except watermelon [...] carbonated beverages such as chi aislinn or lemon-santa rosa soda; Gatorade? or other sports drinks (not [...] make sure you have a responsible adult airport driver to take you home after procedure. Due to having sedation, you may not drive the rest of the day. ? If you need to reschedule, please call [phone] ?Date/Provider Dr Cruz Procedure:colonoscpy Facility:[facility] Prep ordered( if aware):miralax Knowledge of prep instructions:posted to pic5 Diabetic:no Blood Thinners:no Pacemaker with defibrillator:no left message for patient to return call. Nurse triage please give below message. PLEASE READ PATIENT INSTRUCTIONS BELOW. THANK YOU. [facility] PROGRESSon 07-29-2020 PROGRESS HNO ID: [id number] Author: Leon EliRtFito Pittman Service: Radiology Author Type: Rn Testing Type: Progress Notes Filed: 07/29/2020 11:06 AM [...] RT Daya July 29, 2020 11:01 AM [facility] XR ABD 2V SUPINE W UPR/DECUB [...] structures are normal. No other significant abnormality. Therapeutic Case Manager: PSCB Transcribe Date/Time: Jul 29 2020 11:19A Dictated by : LALI ORNELAS MD This examination was interpreted and the report reviewed and electronically signed by: LALI ORNELAS MD on Jul 29 2020 11:19AM EST [id number] [facility] Vital Signs Date Time Vital Sign Value Performing Clinician Facility 08-12-2025 14:32-0400 Body mass index (BMI) [Ratio] 27.82 kg/m2 [employer] Work Phone: [facility] 08-12-2025 14:32-0400 Body weight 69 kg [employer] Work Phone: [facility] 08-12-2025 14:32-0400 Diastolic blood pressure 82 mm[Hg] [employer] Work Phone: [facility] 08-12-2025 14:32-0400 Systolic blood pressure 138 mm[Hg] [employer] Work Phone: [facility] 07-30-2025 15:36-0400 Body height 157.5 cm Nay Beltran [employer] Work Phone: [facility] 07-30-2025 15:36-0400 Body mass index (BMI) [Ratio] 27.62 kg/m2 Nay Beltran [employer] Work Phone: [facility] 07-30-2025 15:36-0400 Body temperature 97.11 [degF] Nay Beltran [employer] Work Phone: [facility] 07-30-2025 15:36-0400 Body weight 68.49 kg Nay Beltran DO Work Phone: [facility] 07-30-2025 15:36-0400 Diastolic blood pressure 68 mm[Hg] Nay Beltran DO Work Phone: [facility] 07-30-2025 15:36-0400 Heart rate 97 /min Nay Beltran DO Work Phone: [facility] 07-30-2025 15:36-0400 SaO2% (BldA) [Mass fraction] 98 % Nay Beltran DO Work Phone: [facility] 07-30-2025 15:36-0400 Systolic blood pressure 102 mm[Hg] Nay Beltran DO Work Phone: [facility] 07-15-2025 15:42-0400 Body mass index (BMI) [Ratio] 26.48 kg/m2 Nathan Kiesha DO Work Phone: [facility] 07-15-2025 15:42-0400 Body weight 65.68 kg Nathan Kiesha DO Work Phone: [facility] 07-15-2025 15:42-0400 Diastolic blood pressure 80 mm[Hg] Nathan Kiesha DO Work Phone: [facility] 07-15-2025 15:42-0400 Systolic blood pressure 120 mm[Hg] Nathan Kiesha DO Work Phone: [facility] 06-22-2025 14:33-0400 Body mass index (BMI) [Ratio] 26.73 kg/m2 Nathan Kiesha DO Work Phone: [facility] 06-22-2025 14:33-0400 Body weight 66.28 kg Nathan Kiesha DO Work Phone: [facility] 06-22-2025 14:33-0400 Diastolic blood pressure 74 mm[Hg] Nathan Kiesha DO Work Phone: [facility] 06-22-2025 14:33-0400 Systolic blood pressure 118 mm[Hg] Nathan Kiesha DO Work Phone: [facility] 05-25-2025 14:45-0400 Body mass index (BMI) [Ratio] 25.24 kg/m2 Nathan Kiesha DO Work Phone: [facility] 05-25-2025 14:45-0400 Body weight 62.6 kg Nathan Kiesha DO Work Phone: [facility] 05-25-2025 14:45-0400 Diastolic blood pressure 80 mm[Hg] Nathan Kiesha DO Work Phone: [facility] 05-25-2025 14:45-0400 Systolic blood pressure 122 mm[Hg] Nathan Kiesha DO Work Phone: [facility] 05-01-2025 10:29-0400 Body mass index (BMI) [Ratio] 25.68 kg/m2 Nom Nurse [facility] 05-01-2025 10:29-0400 Body weight 63.69 kg [facility] Nurse [facility] 01-19-2025 15:08-0500 Body mass index (BMI) [Ratio] 25.99 kg/m2 Nathan Kiesha DO Work Phone: [facility] 01-19-2025 15:08-0500 Body weight 64.47 kg Nathan Kiesha DO Work Phone: [facility] 01-19-2025 15:08-0500 Diastolic blood pressure 78 mm[Hg] Nathan Kiesha DO Work Phone: [facility] 01-19-2025 15:08-0500 Systolic blood pressure 122 mm[Hg] Nathan Kiesha DO Work Phone: [facility] 12-30-2024 15:53-0500 Body height 157.5 cm Nay Beltran DO Work Phone: [facility] 12-30-2024 15:53-0500 Body mass index (BMI) [Ratio] 25.61 kg/m2 Nay Beltran DO Work Phone: [facility] 12-30-2024 15:53-0500 Body temperature 97.11 [degF] Nay Beltran DO Work Phone: [facility] 12-30-2024 15:53-0500 Body weight 63.5 kg Nay Beltran DO Work Phone: [facility] 12-30-2024 15:53-0500 Diastolic blood pressure 82 mm[Hg] Nay Beltran DO Work Phone: [facility] 12-30-2024 15:53-0500 Heart rate 51 /min Nay Beltran DO Work Phone: [facility] 12-30-2024 15:53-0500 SaO2% (BldA) [Mass fraction] 98 % Nay Beltran DO Work Phone: [facility] 12-30-2024 15:53-0500 Systolic blood pressure 122 mm[Hg] Nay Beltran DO Work Phone: [facility] 08-18-2024 11:15-0400 Body mass index (BMI) [Ratio] 25.97 kg/m2 Nathan Kiesha DO Work Phone: [facility] 08-18-2024 11:15-0400 Body weight 64.41 kg Nathan Kiesha DO Work Phone: [facility] 08-18-2024 11:15-0400 Diastolic blood pressure 70 mm[Hg] Nathan Kiesha DO Work Phone: [facility] 08-18-2024 11:15-0400 Systolic blood pressure 112 mm[Hg] Nathan Kiesha DO Work Phone: [facility] 07-22-2024 10:02-0400 Body mass index (BMI) [Ratio] 25.39 kg/m2 Nathan Kiesha DO Work Phone: [facility] 07-22-2024 10:02-0400 Body weight 62.96 kg Nathan Kiesha DO Work Phone: [facility] 07-22-2024 10:02-0400 Diastolic blood pressure 72 mm[Hg] Nathan Kiesha DO Work Phone: [facility] 07-22-2024 10:02-0400 Systolic blood pressure 122 mm[Hg] Nathan Kiesha DO Work Phone: [facility] 01-10-2024 10:55-0500 Body mass index (BMI) [Ratio] 28.17 kg/m2 Nathan Kiesha DO Work Phone: [facility] 01-10-2024 10:55-0500 Body weight 69.85 kg Nathan Kiesha DO Work Phone: [facility] 01-10-2024 10:55-0500 Diastolic blood pressure 84 mm[Hg] Nathan Kiesha DO Work Phone: [facility] 01-10-2024 10:55-0500 Systolic blood pressure 128 mm[Hg] Nathan Kiesha DO Work Phone: [facility] 09-12-2023 17:31-0400 Body temperature 98.96 [degF] [facility] 09-12-2023 17:31-0400 Diastolic blood pressure 91 mm[Hg] [facility] 09-12-2023 17:31-0400 FIO2 99 % Vongabri[facility] 09-12-2023 17:31-0400 Heart rate 122 /min [facility] 09-12-2023 17:31-0400 Respiratory rate 16 /min [facility] 09-12-2023 17:31-0400 Systolic blood pressure 135 mm[Hg] [facility] 05-01-2023 10:55-0400 Body height 157.5 cm Srinivasa Reaper HUMAN RESOURCES BENEFITS ADMINISTRATOR.PHOTOFINISHING LABORATORY WORKER Work Phone: [facility] 05-01-2023 10:55-0400 Body weight 64.86 kg Srinivasa Reaper HUMAN RESOURCES BENEFITS ADMINISTRATOR.PHOTOFINISHING LABORATORY WORKER Work Phone: [facility] 05-01-2023 10:55-0400 Diastolic blood pressure 64 mm[Hg] Srinivasa Reaper HUMAN RESOURCES BENEFITS ADMINISTRATOR.PHOTOFINISHING LABORATORY WORKER Work Phone: [facility] 05-01-2023 10:55-0400 Systolic blood pressure 148 mm[Hg] Srinivasa Reaper HUMAN RESOURCES BENEFITS ADMINISTRATOR.PHOTOFINISHING LABORATORY WORKER Work Phone: [facility] 01-31-2023 19:18-0500 Diastolic blood pressure 82 mm[Hg] [facility] 01-31-2023 19:18-0500 Heart rate 98 /min [facility] 01-31-2023 19:18-0500 Nursing Progress Note Reason Other: this RN discharged pt. pt verbalizes understanding and denies questiosn prior to discharge. [facility] 01-31-2023 19:18-0500 Respiratory rate 16 /min [facility] 01-31-2023 19:18-0500 SaO2% (BldA) [Mass fraction] 100 % [facility] 01-31-2023 19:18-0500 Systolic blood pressure 126 mm[Hg] [facility] 01-31-2023 18:00-0500 Diastolic blood pressure 92 mm[Hg] [facility] 01-31-2023 18:00-0500 Heart rate 110 /min [facility] 01-31-2023 18:00-0500 Mean blood pressure 107 mm[Hg] [facility] 01-31-2023 18:00-0500 SaO2% (BldA) [Mass fraction] 99 % [facility] 01-31-2023 18:00-0500 Systolic blood pressure 138 mm[Hg] [facility] 01-31-2023 17:00-0500 Diastolic blood pressure 97 mm[Hg] [facility] 01-31-2023 17:00-0500 Mean blood pressure 104 mm[Hg] [facility] 01-31-2023 17:00-0500 Systolic blood pressure 117 mm[Hg] [facility] 01-31-2023 16:38-0500 Heart rate 105 /min [facility] 01-31-2023 16:38-0500 Mean blood pressure 114 mm[Hg] [facility] 01-31-2023 16:38-0500 Respiratory rate 18 /min [facility] 01-31-2023 13:49-0500 Body temperature 97.88 [degF] [facility] 01-31-2023 13:49-0500 Heart rate 118 /min [facility] 12-30-2022 14:55-0500 Body temperature 97.88 [degF] [facility] 12-30-2022 14:55-0500 Diastolic blood pressure 81 mm[Hg] [facility] 12-30-2022 14:55-0500 Heart rate 84 /min [facility] 12-30-2022 14:55-0500 Mean blood pressure 100 mm[Hg] [facility] 12-30-2022 14:55-0500 Respiratory rate 20 /min [facility] 12-30-2022 14:55-0500 SaO2% (BldA) [Mass fraction] 98 % [facility] 12-30-2022 14:55-0500 Systolic blood pressure 137 mm[Hg] [facility] 12-30-2022 14:35-0500 Body temperature 97.88 [degF] [facility] 12-30-2022 14:35-0500 Diastolic blood pressure 79 mm[Hg] [facility] 12-30-2022 14:35-0500 Heart rate 82 /min [facility] 12-30-2022 14:35-0500 Mean blood pressure 94 mm[Hg] [facility] 12-30-2022 14:35-0500 Respiratory rate 16 /min [facility] 12-30-2022 14:35-0500 SaO2% (BldA) [Mass fraction] 97 % [facility] 12-30-2022 14:35-0500 Systolic blood pressure 123 mm[Hg] [facility] 12-30-2022 13:35-0500 Body temperature 97.88 [degF] [facility] 12-30-2022 13:35-0500 Diastolic blood pressure 70 mm[Hg] [facility] 12-30-2022 13:35-0500 Heart rate 80 /min [facility] 12-30-2022 13:35-0500 Mean blood pressure 89 mm[Hg] [facility] 12-30-2022 13:35-0500 Respiratory rate 17 /min [facility] 12-30-2022 13:35-0500 SaO2% (BldA) [Mass fraction] 96 % [facility] 12-30-2022 13:35-0500 Systolic blood pressure 126 mm[Hg] [facility] 12-30-2022 13:00-0500 Respiratory rate 12 /min [facility] 12-30-2022 12:55-0500 Respiratory rate 9 /min [facility] 12-30-2022 12:50-0500 Respiratory rate 10 /min [facility] 12-30-2022 08:15-0500 Body temperature 98.24 [degF] [facility] 12-30-2022 08:15-0500 Heart rate 111 /min [facility] 12-02-2022 13:41-0500 Body temperature 98.2 [degF] Ritu Ryder DO Work Phone: [facility] [employer] 12-02-2022 13:41-0500 Diastolic blood pressure 87 mm[Hg] Ritu Ryder DO Work Phone: [facility] [employer] 12-02-2022 13:41-0500 Heart rate 111 /min Ritu Ryder DO Work Phone: [facility] [employer] 12-02-2022 13:41-0500 Respiratory rate 18 /min Ritu Ryder DO Work Phone: [facility] [employer] 12-02-2022 13:41-0500 SaO2% (BldA) [Mass fraction] 99 % Ritu Ryder DO Work Phone: [facility] [employer] 12-02-2022 13:41-0500 Systolic blood pressure 143 mm[Hg] Ritu Ryder DO Work Phone: [facility] [employer] 11-28-2022 00:45-0500 Body height 157.5 cm Ritu Ryder DO Work Phone: [facility] [employer] 11-28-2022 00:45-0500 Body mass index (BMI) [Ratio] 25.61 kg/m2 Ritu Ryder DO Work Phone: [facility] [employer] 11-28-2022 00:45-0500 Body weight 63.5 kg Ritu Ryder DO Work Phone: [facility] [employer] 11-27-2022 22:26-0500 Hourly Rounding Fredi DORSEY [facility] Comment on above: Result Comment: ensured that all pt belo ngings are sent with pt. pt has no questions or concerns. report given to EMS. pt stable and no s/s of distress. pt off unit to transfer 11-27-2022 22:00-0500 Diastolic blood pressure 97 mm[Hg] Fredi DORSEY [facility] 11-27-2022 22:00-0500 Heart rate 134 /min Fredi DORSEY [facility] 11-27-2022 22:00-0500 Hourly Rounding Fredi KARASIK [facility] 11-27-2022 22:00-0500 Mean blood pressure 116 mm[Hg] Fredi KARASIK [facility] 11-27-2022 22:00-0500 Systolic blood pressure 154 mm[Hg] Fredi KARASIK [facility] 11-27-2022 21:50-0500 Blood Pressure Location Fredi KARASIK [facility] 11-27-2022 21:50-0500 Diastolic blood pressure 90 mm[Hg] Fredi KARASIK [facility] 11-27-2022 21:50-0500 Heart rate 133 /min Fredi KARASIK [facility] 11-27-2022 21:50-0500 Hourly Rounding Fredi KARASIK [facility] 11-27-2022 21:50-0500 Mean blood pressure 113 mm[Hg] Fredi KARASIK [facility] 11-27-2022 21:50-0500 Respiratory rate 18 /min Fredi KARASIK [facility] 11-27-2022 21:50-0500 SaO2% (BldA) [Mass fraction] 98 % Fredi KARASIK [facility] 11-27-2022 21:50-0500 Systolic blood pressure 159 mm[Hg] Fredi KARASIK [facility] 11-27-2022 21:37-0500 Blood Pressure Location Fredi KARASIK [facility] 11-27-2022 21:37-0500 Diastolic blood pressure 88 mm[Hg] Fredi KARASIK [facility] 11-27-2022 21:37-0500 Heart rate 131 /min Fredi ABREUK [facility] 11-27-2022 21:37-0500 Mean blood pressure 111 mm[Hg] Fredi SCHUMACHERASIK [facility] 11-27-2022 21:37-0500 SaO2% (BldA) [Mass fraction] 97 % Fredi DORSEY [facility] 11-27-2022 21:37-0500 Systolic blood pressure 158 mm[Hg] Fredi ABREUK [facility] 11-27-2022 21:30-0500 Blood Pressure Location Fredi DORSEY [facility] 11-27-2022 21:30-0500 Body temperature 98.6 [degF] Fredi ABREUK [facility] 11-27-2022 19:00-0500 Body temperature 98.24 [degF] Fredi SCHUMACHERASIK [facility] 11-27-2022 17:15-0500 Body temperature 98.06 [degF] Fredi SCHUMACHERASIK [facility] 11-27-2022 14:02-0500 Heart rate 99 /min Fredi DORSEY [facility] 07-14-2022 07:00-0400 Body temperature 98.6 [degF] Kaylinn Dokken [facility] 07-14-2022 07:00-0400 Diastolic blood pressure 67 mm[Hg] Kaylinn Dokken [facility] 07-14-2022 07:00-0400 Heart rate 80 /min Kaylinn Dokken [facility] 07-14-2022 07:00-0400 Mean blood pressure 83 mm[Hg] Kaylinn Dokken [facility] 07-14-2022 07:00-0400 Respiratory rate 17 /min Kaylinn Dokken [facility] 07-14-2022 07:00-0400 Systolic blood pressure 115 mm[Hg] Kaylinn Dokken [facility] 07-14-2022 06:07-0400 Body temperature 98.24 [degF] Kaylinn Dokken [facility] 07-14-2022 06:07-0400 Diastolic blood pressure 79 mm[Hg] Kaylinn Dokken [facility] 07-14-2022 06:07-0400 Heart rate 90 /min Charlotteylinn Dokken [facility] 07-14-2022 06:07-0400 Respiratory rate 18 /min Charlotteylinn Dokken [facility] 07-14-2022 06:07-0400 SaO2% (BldA) [Mass fraction] 100 % Kaylinn Dokken [facility] 07-14-2022 06:07-0400 Systolic blood pressure 134 mm[Hg] Kaylinn Dokken [facility] 07-14-2022 05:30-0400 Hourly Rounding Nathan KIESHA [facility] Comment on above: Result Comment: Pt discharged per physic santiago orders. Pt ambulates off unit with a steady gait 07-14-2022 05:15-0400 Diastolic blood pressure 77 mm[Hg] Nathan KIESHA [facility] 07-14-2022 05:15-0400 Heart rate 105 /min Nathan KIESHA [facility] 07-14-2022 05:15-0400 Hourly Rounding Nathan KIESHA [facility] 07-14-2022 05:15-0400 Mean blood pressure 89 mm[Hg] Nathan KIESHA [facility] 07-14-2022 05:15-0400 Respiratory rate 18 /min Nathan KIESHA [facility] 07-14-2022 05:15-0400 Systolic blood pressure 113 mm[Hg] Nathan KIESHA [facility] 04-18-2022 11:00-0400 Body height 160.02 cm Domo Hodges Other [employer] [facility] [employer] Other 04-18-2022 11:00-0400 Body mass index (BMI) [Ratio] 23.03 kg/m2 Domo Genolandon Other [facility] Other 04-18-2022 11:00-0400 Body weight 58.97 kg Domo Genolandon Other [employer] Other 02-09-2022 11:41-0400 Body height 157.48 cm Charlene Billow DO Work Phone: IC-CTKVU-Lebmkg 320 Work Phone: 02-09-2022 11:41-0400 Body mass index (BMI) [Ratio] 24.51 kg/m2 Charlene Billow DO Work Phone: [id number]-[id number] 320 Work Phone: 02-09-2022 11:41-0400 Body surface area Derived from formula 1.61 m2 Hcarlene Billow DO Work Phone: AJ-VXMHQ-Hsvuab 320 Work Phone: 02-09-2022 11:41-0400 Body weight 60.78 kg Charlene Billow DO Work Phone: HU-ORBRM-Qyezkr 320 Work Phone: 02-09-2022 11:41-0400 Diastolic blood pressure 87 mm[Hg] Charlene Billow DO Work Phone: ED-VSDAS-Enneli 320 Work Phone: 02-09-2022 11:41-0400 Systolic blood pressure 136 mm[Hg] Charlene Wilderow DO Work Phone: CI-BBVYF-Hczrgh 320 Work Phone: 02-09-2022 11:41-0400 0 1 Charlene Wilderow DO Work Phone: TP-SZQWV-Gdvbao 320 Work Phone: Comment on above: GRAV PARA [employer] 04-19-2021 14:53-0400 Body height 157.48 cm Charlene Wilderow DO Work Phone: SH-CPZXV-Peevma 320 Work Phone: 04-19-2021 14:53-0400 Body mass index (BMI) [Ratio] 21.77 kg/m2 Charlene Billow DO Work Phone: QU-VQHQI-Rqhtqx 320 Work Phone: 04-19-2021 14:53-0400 Body surface area Derived from formula 1.53 m2 Charlene Billow DO Work Phone: GU-MWMBD-Dulyeh 320 Work Phone: 04-19-2021 14:53-0400 Body weight 53.98 kg Charlene Billow DO Work Phone: NT-APQAW-Vhqmnk 320 Work Phone: 04-19-2021 14:53-0400 Diastolic blood pressure 83 mm[Hg] Charlene Billow DO Work Phone: CQ-VNRZI-Naytnt 320 Work Phone: 04-19-2021 14:53-0400 Heart rate 108 /min Charlene Billow DO Work Phone: LK-LFOMI-Qyfprt 320 Work Phone: 04-19-2021 14:53-0400 Systolic blood pressure 142 mm[Hg] Charlene Billow DO Work Phone: SU-RQLTI-Gkdfjw 320 Work Phone: 04-19-2021 14:53-0400 0 1 Charlene Billow DO Work Phone: [id number]-Vbhwjd 320 Work Phone: Comment on above: GRAV PARA [employer] Encounters Encounter Date Encounter Type Care Provider Facility Start: 08-21-2025 End: 08-21-2025 Chart abstracting Scanning Provider External [facility] Start: 08-18-2025 End: 08-19-2025 Chart abstracting Quynh Clements MD Work Phone: [facility] Start: 08-15-2025 End: 08-15-2025 ambulatory MARBELLA KEANE Facility:[facility] Start: 08-12-2025 End: 08-12-2025 flow sheet Nathan Pop DO Work Phone: [facility] Comment on above: 24 weeks gestation o f ([facility]); Second trimester ([facility]); Elevated glucose tolerance test Start: 08-12-2025 End: 08-12-2025 ambulatory NATHAN POP Not Available Start: 08-12-2025 End: 08-12-2025 ambulatory Nahtan POP Facility:[facility] Start: 08-01-2025 End: 08-01-2025 ambulatory Yomaira BELTRAN Facility:[facility] Start: 07-30-2025 End: 07-30-2025 Patient encounter status Nay Beltran DO Work Phone: [facility] Work Phone: Start: 07-30-2025 End: 07-30-2025 Periodic preventive med est patient 18-39 yrs Nay Beltran DO Work Phone: [facility] 230 Comment on above: Wellness examination (Primary Dx); Hypertension, unspecified type ; Lipid screening Start: 07-30-2025 End: 07-30-2025 ambulatory NAY BELTRAN Not Available Start: 07-30-2025 End: 07-30-2025 Bamboo flowsheet Nay Beltran DO Work Phone: [facility] [address] Start: 07-30-2025 End: 07-30-2025 Bamboo flowsheet Nay Beltran DO Work Phone: [facility] Start: 07-15-2025 End: 07-15-2025 flow sheet Nathan Kiesha DO Work Phone: [facility] Comment on above: 20 weeks gestation o f ([facility]); Second trimester ([facility]); Diabetes mellitus screening Start: 07-15-2025 End: 07-15-2025 ambulatory NATHAN KIESHA Not Available Start: 07-15-2025 End: 07-18-2025 Clinisync Result Encounter Nathan Kiesha DO Work Phone: [facility] Unsolicited Start: 07-15-2025 End: 07-18-2025 Clinisync Result Encounter Nathan Kiesha DO Work Phone: [facility] Unsolicited Start: 06-22-2025 End: 06-22-2025 flow sheet Nathan Kiesha DO Work Phone: [facility] Comment on above: Sinusitis, unspecifi ed chronicity, unspecified location (Primary Dx); Second trimester ([facility]); 17 weeks gestation of ([facility]); Screening, , for anatomic survey ([facility]) Start: 06-22-2025 End: 06-22-2025 ambulatory NATHAN KIESHA Not Available Start: 06-22-2025 End: 06-22-2025 Bamboo flowsheet Nathan Kiesha DO Work Phone: [facility] Start: 06-22-2025 End: 06-24-2025 Bamboo flowsheet Nathan Kiesha DO Work Phone: [facility] Start: 06-22-2025 End: 06-24-2025 External Result Encounter Nathan Kiesha DO Work Phone: [facility] Unsolicited Start: 05-25-2025 End: 05-25-2025 ambulatory NATHAN KIESHA Not Available Start: 05-25-2025 End: 05-25-2025 flow sheet Nathan Kiesha DO Work Phone: [facility] Comment on above: Nonintractable episo dic headache, unspecified headache type (Primary Dx); Second trimester ([facility]); 13 weeks gestation of ([facility]) Start: 05-25-2025 End: 05-25-2025 Bamboo flowsheet Nathan [...] Department Unsolicited Start: 05-01-2025 End: 05-01-2025 ambulatory NYA BELTRAN Not Available Start: 05-01-2025 End: 05-01-2025 Office outpatient visit 5 minutes [facility] Kiesha Nurse [facility] Comment on above: GA: 9w6d Start: 03-13-2025 End: 03-13-2025 ambulatory Nathan R KIESHA Facility:[facility] Start: 03-13-2025 End: 03-13-2025 Patient encounter procedure Nathan R KIESHA [facility] Start: 02-02-2025 End: 02-02-2025 Patient encounter procedure Cruz Rodríguez MD Work Phone: [facility] [place] Work Phone: Start: 02-02-2025 End: 02-02-2025 ambulatory Cruz Rodríguez MD Work Phone: [facility] Work Phone: Start: 01-22-2025 End: 01-22-2025 ambulatory Nathan R KIESHA Facility:[facility] Start: 01-22-2025 End: 01-22-2025 Patient encounter procedure Nathan R KIESHA [facility] Start: 01-19-2025 End: 01-19-2025 Office outpatient visit [...] encounter Charlene Bill ow DO Work Phone: [facility] Start: 04-25-2024 Telephone encounter Charlene Bill ow DO Work Phone: [facility] Comment on above: Surgery Cancelled Start: 01-10-2024 End: 01-10-2024 Office outpatient visit 15 minutes Nathan Kiesha DO Work Phone: [facility] Comment on above: Menorrhagia with reg ular cycle; Pelvic pain in female; Uses control Start: 01-02-2024 Refill Charlene Billow D O Work Phone: [facility] Comment on above: Refill Request Start: 12-31-2023 ambulatory Charlene Billow D O Work Phone: Obstetrics/Gynecology Comment on above: pain Start: 12-10-2023 End: 12-10-2023 ambulatory CHARLENE BILLOW Facility:[facility] Start: 10-22-2023 ambulatory Charlene Billow D O Work Phone: [facility] Start: 10-22-2023 Patient encounter procedure Charlene Billow DO Work Phone: Obstetrics/Gynecology Comment on above: office visit Start: 09-12-2023 End: 09-12-2023 Emergency department patient visit [facility] Start: 08-30-2023 Manual pelvic examination Charlene Billow DO Work Phone: Obstetrics/Gynecology Comment on above: Pelvic pain in femal e (Primary Dx) Start: 08-26-2023 ambulatory Charlene Billow D O Work Phone: Obstetrics/Gynecology Comment on above: painful periods Start: 08-24-2023 End: 08-24-2023 Manual pelvic examination Srinivasa Downs APRN.PHOTOFINISHING LABORATORY WORKER Work Phone: Gynecology Comment on above: High-tone pelvic stella or dysfunction (Primary Dx); Chronic pelvic pain in female Start: 08-24-2023 End: 08-24-2023 Telemedicine consultation with patient Srinivasa Hickmaner HUMAN RESOURCES BENEFITS ADMINISTRATOR.PHOTOFINISHING LABORATORY WORKER Work Phone: [facility] Start: 08-24-2023 End: 08-24-2023 ambulatory SRINIVASA MARGIER Facility:[facility] Start: 08-13-2023 ambulatory Charlene Rodriguez D O Work Phone: Obstetrics/Gynecology Comment on above: painful period Start: 08-02-2023 Telephone encounter Charlene Wilder ow DO Work Phone: Gynecology Comment on above: Insurance Authorizat ion (Oril[employer]) Start: 07-16-2023 End: 07-16-2023 ambulatory CHARLENE MICHAEL Facility:[facility] Start: 06-12-2023 End: 06-12-2023 ambulatory CHARLENE MICHAEL Facility:[facility] Start: 06-12-2023 End: 06-12-2023 Subsequent hospital visit by physician [facility] Suki (I-Stat/1.5t) Radiology Comment on above: Pelvic and perineal pain [R10.2] Start: 05-17-2023 End: 05-17-2023 Manual pelvic examination Charlene Rodriguez DO Work Phone: Obstetrics/Gynecology Comment on above: Endometriosis (Prima ry Dx); Pelvic and perineal pain Start: 05-17-2023 End: 05-17-2023 Telemedicine consultation with patient Charlene Rodriguez DO Work Phone: [facility] Start: 05-17-2023 End: 05-17-2023 ambulatory CRUZ SAHIL RODRÍGUEZ Facility:[facility] Start: 05-11-2023 Telephone encounter Charlene Wilder ow DO Work Phone: Gynecology Comment on above: Vaginal Bleeding Start: 05-01-2023 End: 05-01-2023 ambulatory CRUZ SAHIL RODRÍGUEZ Facility:[facility] Start: 05-01-2023 End: 05-01-2023 Patient encounter procedure Srinivasa Downs HUMAN RESOURCES BENEFITS ADMINISTRATORKarnePHOTOFINISHING LABORATORY WORKER Work Phone: Gynecology Comment on above: Chronic pelvic pain in female (Primary Dx); Constipation, unspecified constipation type; High-tone pelvic floor dysfunction; Diastasis of rectus abdominis; Dysmenorrhea; Other specified dyspareunia Start: 04-22-2023 ambulatory Charlene Valladares Work Phone: Obstetrics/Gynecology Comment on above: painful Start: 01-31-2023 End: 01-31-2023 Emergency department patient visit [facility] Start: 12-30-2022 End: 12-30-2022 Patient encounter procedure [facility] Start: 12-05-2022 End: 12-05-2022 ambulatory [facility] Start: 12-05-2022 End: 12-05-2022 Office outpatient visit 15 minutes [facility] Work Phone: [facility] Comment on above: Pre-eclampsia, sever e, delivered (Primary Dx) Start: 11-28-2022 End: 12-02-2022 Evaluation and management of inpatient [facility] Start: 11-28-2022 End: 12-02-2022 Evaluation and management of inpatient Ritu Ryder DO Work Phone: [facility] Comment on above: Preeclampsia, severe , third trimester (Primary Dx) Start: 11-28-2022 End: 12-27-2022 Pre-admission assessment Fredi DORSEY [facility] Start: 11-27-2022 End: 11-27-2022 OB Triage Fredi DORSEY [facility] Start: 07-14-2022 End: 07-14-2022 Emergency department patient visit Kumar Villagomez [facility] Start: 07-14-2022 End: 07-14-2022 OB Triage Nathan POP [facility] Start: 04-25-2022 End: 04-25-2022 Patient encounter procedure DOMO HODGES [facility] Start: 04-18-2022 End: 04-18-2022 ambulatory Domo Hodges Other [facility] Other Start: 04-18-2022 Patient encounter procedure Domo Alemanlandon [facility] Start: 02-09-2022 Office outpatient vi sit 15 minutes Charlene Rodriguez DO Work Phone: [id number]-Svesul 320 Work Phone: Start: 09-29-2021 End: 10-02-2021 ambulatory [facility] Start: 09-29-2021 End: 10-02-2021 ambulatory [facility] Start: 04-19-2021 AUDIT Charlene Valladares Work Phone: [id number] 320 Work Phone: Start: 04-19-2021 PLVCPOBGYN, Provider : Charlene Rodriguez, Status: Pen, Time: 2:45 PM Nicholas Chau MD Work Phone: [id number]-Msaacpejz Work Phone: Start: 04-18-2021 Chart Update Nicholas Keating Work Phone: [id number] Work Phone: Procedures Date Procedure Procedure Detail [...] 11-29-2022 Blood count platelet automated Jimmie Vincent HUMAN RESOURCES BENEFITS ADMINISTRATOR - CORPORATE WEBMASTER Work Phone: Start: 11-28-2022 Blood count platelet [...] Start: 05-16-2021 Antibody hiv-1&hiv-2 single result Megadyne [id number] Start: 05-16-2021 Iaad ia hepatitis b surface antigen Megadyne [id number] Start: 02-28-2021 Cystoscopy DOMO ALEMAN LANDON Start: 08-30-2020 End: 08-30-2020 Antibody screen Comment on above: Performed By: #### T +S #### [facility] [address] [place] [address] Order Comment: TEST TYPE + SCREEN WAS CANCELLED, 08/30/2020 13:37 JOP. Performed By: #### T +S #### [facility] [address] [place] [address] Start: 08-07-2018 RIGHT SHOULDER OPEN DISTAL CLAVICLE [...] 2) Zoste r Vaccines (1 of 2) [facility] Start: 09-03-2028 Screening for malign ant neoplasm of cervix [facility] Start: 08-18-2027 Screening for malign ant neoplasm of cervix Pap Smear [facility] Start: 09-10-2025 End: 09-10-2025 Telemedicine consultation with patient 09/10/2025 11:00 AM EDT Telemedicine [facility] [place] [address] [address] Quynh Clements MD [address] [facility], [address] [place] [address] [facility] Start: 09-10-2025 End: 09-10-2025 Patient encounter procedure 09/10/2025 9:45 AM EDT Appointment [facility] [place] [address] [facility] [address] [place] [address] [facility] [place] Start: 09-07-2025 End: 09-07-2025 Patient encounter procedure [facility] Start: 08-27-2025 End: 08-27-2025 Patient encounter procedure 08/27/2025 3:20 PM EDT Routine [facility] [address] [place] [phone] Marbella Keane, SUBSTATION DESIGNER [address] [place] [phone] [facility] Start: 08-24-2025 End: 08-24-2025 ambulatory 08/24/2025 1:30 PM EDT Support Visit Maternal- Medicine at [facility] [address] [facility] [place] [phone] Teena Sarmiento RN [address] [facility] [address], [address] [place] [address] Kerline Steiner, RAYNA [address], [address] [place] [address] [facility]- [facility] at [facility] Start: 08-24-2025 End: 08-24-2025 Patient encounter procedure 08/24/2025 11:00 AM EDT Office Visit [facility] [address] [place] [phone] Nathan Pop, DO [address] [place] [address] [facility] Start: 08-12-2025 End: 08-12-2025 Patient encounter procedure 08/12/2025 2:40 PM EDT Routine [facility] [address] [place] [phone] Nathan Pop, DO [address] [place] [address] [facility] Start: 08-12-2025 End: 08-12-2026 Measurement of glucose 3 hours after glucose challenge for glucose tolerance test Glucose tolerance, 3 hours Lab Routine Elevated glucose tolerance test Expected: 08/12/2025 (Approximate), Expires: 08/12/2026 [facility] Work Phone: Comment on above: Expected: 08/12/2025 (Approximate), Expires: 08/12/2026 Start: 08-12-2025 End: 08-12-2025 Professional / ancillary services management 08/12/2025 2:00 PM EDT Ancillary Procedure [facility] [address] [facility] [place] [phone] [facility] Start: 07-31-2025 End: 08-29-2025 CBC W Auto Differential panel - Blood CBC and differential Lab Routine Hypertension, unspecified type Wellness examination Expected: 07/31/2025 (Approximate), Expires: 08/29/2025 [facility] Work Phone: Comment on above: Expected: 07/31/2025 (Approximate), Expires: 08/29/2025 Start: 07-31-2025 End: 08-29-2025 Comprehensive metabolic 2000 panel - Serum or Plasma Comprehensive metabolic panel Lab Routine Hypertension, unspecified type Wellness examination Expected: 07/31/2025 (Approximate), Expires: 08/29/2025 [facility] Comment on above: Expected: 07/31/2025 (Approximate), Expires: 08/29/2025 Start: 07-31-2025 End: 08-29-2025 Lipid 1996 panel - Serum or Plasma Lipid panel Lab Routine Wellness examination Lipid screening Expected: 07/31/2025 (Approximate), Expires: 08/29/2025 [facility] Comment on above: Expected: 07/31/2025 (Approximate), Expires: 08/29/2025 Start: 07-30-2025 End: 07-30-2025 Patient encounter procedure 07/30/2025 3:40 PM EDT Office Visit LANETTE [facility] [address] [place] [phone] Kaftan, Nay R, DO [address] [place] [address] Arrived [facility] 230 Comment on above: Arrived Start: 07-27-2025 Influenza vaccination N [facility] Start: 07-15-2025 End: 07-15-2025 Patient encounter procedure 07/15/2025 3:30 PM EDT Routine [facility] [place] [facility] [address] [facility] [place] [address] Nathan Pop DO [address], [place] [address] [facility] Start: 07-15-2025 End: 07-15-2025 Professional / ancillary services management 07/15/2025 2:30 PM EDT Ancillary Procedure [facility] [address] [facility] [place] [address] [facility] Start: 07-15-2025 End: 07-15-2026 CBC panel - Blood by Automated count CBC Lab Routine Diabetes mellitus screening Expected: 07/15/2025 (Approximate), Expires: 07/15/2026 [facility] Work Phone: Comment on above: Expected: 07/15/2025 (Approximate), Expires: 07/15/2026 Start: 07-15-2025 End: 07-15-2026 Measurement of glucose 1 hour after glucose challenge for glucose tolerance test Glucose tolerance, 1 hour Lab Routine Diabetes mellitus screening Expected: 07/15/2025 (Approximate), Expires: 07/15/2026 [facility] Comment on above: Expected: 07/15/2025 (Approximate), Expires: 07/15/2026 Start: 06-22-2025 End: 06-22-2025 Patient encounter procedure 06/22/2025 2:10 PM EDT Routine [facility] [place] [facility] [address] [place] [address] Nathan Pop DO [address] [place] [address] Arrived [facility] P[facility]ODY Comment on above: Arrived Start: 06-22-2025 End: 12-23-2025 Alpha fetoprotein, maternal Alpha fetoprotein, maternal Lab Routine Second trimester ([facility]) 17 weeks gestation of ([facility]) Expected: 06/22/2025 (Approximate), Expires: 12/23/2025 [facility] Comment on above: Expected: 06/22/2025 (Approximate), Expires: 12/23/2025 Start: 06-22-2025 End: 09-22-2025 US for US OB 14+ weeks anatomy scan Imaging Routine Screening, , for anatomic survey ([facility]) Expected: 06/22/2025, Expires: 09/22/2025 [facility] Work Phone: Comment on above: Expected: 06/22/2025 , Expires: 09/22/2025 Start: 05-25-2025 End: 05-25-2025 Patient encounter procedure 05/25/2025 2:40 PM EDT Routine [facility] [address] [facility] [place] [phone] Nathan Pop, [address] [facility] [place] [address] [facility] Start: 05-01-2025 End: 05-01-2026 [...] above: Arrived Start: 07-27-2024 Influenza vaccination [facility] Start: 07-22-2024 End: 07-22-2025 US for US PELVIS-TRANSVAG IF INDICATED Imaging Routine Dysmenorrhea, unspecified Expected: 07/22/2024 (Approximate), Expires: 07/22/2025 [facility] Work Phone: Comment on above: Expected: 07/22/2024 (Approximate), Expires: 07/22/2025 Start: 06-23-2024 End: 06-23-2024 Patient encounter procedure 06/23/2024 10:30 AM EDT Office Visit Obstetrics/Gynecology [address] [address] Charlene Rodriguez DO [address] [place] [address] 2 WEEK POST OP Obstetrics/Gynecolog y Comment on above: 2 WEEK POST OP Start: 05-27-2024 End: 05-27-2024 Admission to same day surgery center 05/27/2024 7:30 AM EDT - 05/27/2024 9:30 AM EDT Surgery [facility] [address] [place] [address] Charlene Rodriguez, [address] [place] [address] LAPAROSCOPY FULGURATION OR EXCISION OF LESIONS OF THE OVARY PELVIC VISCERA OR PERITONEAL SURFACE BY ANY METHOD [facility] Comment on above: LAPAROSCOPY FULGURAT ION [...] physician 05/27/2024 7:30 AM EDT Hospital Encounter [facility] [address] [place] [address] Charlene Rodriguez, DO [address] [place] [address] Endometriosis [N80.9] [facility] Comment on above: Endometriosis [N80.9 ] Start: 05-25-2024 Influenza vaccination Influenza Vacc ine (#1) [facility] Comment on above: Postponed from 07/27 (Patient Refused) Start: 05-20-2024 End: 05-20-2024 ambulatory 05/20/2024 10:00 AM EDT [facility] SR. SOCIAL MEDIA & MOBILE MANAGER [facility] [address] [phone] Kevin Pires Financial Service Professional Nurse [address] [phone] RN TEACHING SR. SOCIAL MEDIA & MOBILE MANAGER [facility] Comment on above: RN TEACHING Start: 04-22-2024 End: 04-22-2024 Patient encounter procedure 04/22/2024 9:00 AM EDT Office Visit [facility] [address] [place] [address] Cruz Rodríguez MD [address] [place] [address] [facility] Start: 2024 DTaP/Tdap/Td Vaccine s (7 - Td or Tdap) DTaP/Tdap/Td Vaccines (7 - Td or Tdap) [facility] Start: 2024 Urine microalbumin profile DTaP,Tdap,Td Vaccine (7 - Td or Tdap) [facility] Start: 01-30-2024 End: 01-30-2024 Patient encounter procedure 01/30/2024 11:10 AM EST Consult [facility] [address] [facility] [place] [address] Nathan Pop, DO [address] [facility] [address] [place], [place] [phone] [facility] Start: 01-15-2024 End: 01-15-2024 Professional / ancillary services management 01/15/2024 8:00 AM EST Ancillary Procedure [facility] [address] [place] [address] [facility] Start: 01-10-2024 End: 01-10-2025 US for US PELVIS-TRANSVAG IF INDICATED Imaging Routine Pelvic pain in female Expected: 01/10/2024 (Approximate), Expires: 01/10/2025 [facility] Work Phone: Comment on above: Expected: 01/10/2024 (Approximate), Expires: 01/10/2025 Start: 11-26-2023 Behavioral Health Screening Behavioral Health Screening [facility] Start: 11-26-2023 Depression Assessment Depression Ass [facility] Start: 07-27-2023 Covid-19 Vaccine ( season) Covid-19 Vaccine ( season) [facility] Start: 07-27-2023 Influenza vaccination [facility] Start: 11-26-2022 DEPRESSION ASSESSMENT DEPRESSION ASS ESSMENT [facility] Start: 07-27-2022 Influenza vaccination Influenza Vacc ine (#1) [facility] Start: 05-23-2022 FUV, Provider: Charlene Rodriguez, Status: Pen, Time: 1:30 PM FUV, Provider: Charlene Rodriguez, Status: Pen, Time: 1:30 PM [id number] Work Phone: Start: 08-16-2021 FUV, Provider: Charlene Rodriguez, Status: Pen, Time: 11:15 AM FUV, Provider: Charlene Rodriguez, Status: Pen, Time: 11:15 AM [id number] Work Phone: Start: 2016 PAP TESTING PAP TESTING [facility] Start: 2016 Screening for malign ant neoplasm of cervix [facility] Start: 2014 DTaP,Tdap and Td Vaccines (1 - Tdap) DTaP,Tdap and Td Vaccines (1 - Tdap) [facility] Start: 2014 DTaP/Tdap/Td Vaccine s (1 - Tdap) DTaP/Tdap/Td Vaccines (1 - Tdap) [facility] Start: 2014 Urine microalbumin profile [facility] Start: 2013 Adult BMI Screening Adult BMI Screen ing [facility] Start: 2013 ANNUAL PCP TEAM SCRATCHER RIGO DISEASE VISIT ANNUAL PCP TEAM CHRONIC DISEASE VISIT [facility] Start: 2013 BP CONTROLLED (<130/80) BP CONTROLLE D (<130/80) [facility] Start: 2013 HEPATITIS C SCREENING HEPATITIS C [facility] Start: 2013 Hepatitis C screening Hepatitis C [facility] Start: 2013 HIV SCREENING HIV SCREENING [facility] Start: 2013 HIV screening HIV Screening [facility] Start: 2007 [facility]: 2007 Tobacco Screening Tobacco Screening [facility] Start: 05-31-2000 Varicella vaccination Varicell a Vaccines (1 of 2 - 2-dose childhood series) [facility] Start: 1996 MMR Vaccines (1 of 1 - Standard series) MMR Vaccines (1 of 1 - Standard series) [facility] Start: 1996 Varicella vaccination Varicell a Vaccines (1 of 2 - 2-dose childhood series) [facility] Start: 1995 COVID-19 VACCINE (#1) COVID-19 VACCI NE (#1) [facility] Start: 1995 HEPATITIS B (1 of 3 - 3-dose series) HEPATITIS B (1 of 3 - 3-dose series) [facility] Start: 1995 Hepatitis B Vaccine (1 of 3 - 3-dose series) Hepatitis B Vaccine (1 of 3 - 3-dose series) [facility] Start: 1995 Hepatitis B Vaccines (1 of 3 - 3-dose series) Hepatitis B Vaccines (1 of 3 - 3-dose series) [facility] Start: 1995 Lipid panel Lipid Panel [facility] Bacteria identified in Urine by Culture Urine culture Microbiology Routine Missed menses Ordered: 05/01/2025 [facility] Comment on above: Ordered: 05/01/2025 CBC W Auto Different ial panel - Blood CBC and differential Lab Routine Missed menses , unspecified gestational age Ordered: 05/01/2025 [facility] Comment on above: Ordered: 05/01/2025 Cytology Cervical or vaginal smear or scraping study Pap Smear Pathology and Cytology Routine Well woman exam with routine gynecological exam Ordered: 08/18/2024 [facility] Work Phone: Comment on above: Ordered: 08/18/2024 Hemoglobin A1c/Hemoglobin.total in Blood Hemoglobin A1c Lab Routine Missed menses , unspecified gestational age Ordered: 05/01/2025 [facility] Comment on above: Ordered: 05/01/2025 Hepatitis B virus surface Ag [Presence] in Serum or Plasma by Immunoassay Hepatitis B surface antigen Lab Routine Missed menses , unspecified gestational age Ordered: 05/01/2025 [facility] Comment on above: Ordered: 05/01/2025 Hepatitis C virus Ab [Presence] in Serum or Plasma by Immunoassay Hepatitis C antibody Lab Routine Missed menses , unspecified gestational age Ordered: 05/01/2025 [facility] Comment on above: Ordered: 05/01/2025 HIV-1/HIV-2 antigen/antibody combination immunoassay HIV-1 and HIV-2 antibodies Lab Routine Missed menses , unspecified gestational age Ordered: 05/01/2025 [facility] Comment on above: Ordered: 05/01/2025 End: 06-15-2024 Mri pelvis w/o & w/contrast material MRI FEMALE PELVIS WO/W IVCON Radiology Routine Pelvic and perineal pain 1 Occurrences starting 05/17/2023 until 06/15/2024 [facility] Work Phone: Comment on above: 1 Occurrences starti ng 05/17/2023 until 06/15/2024 Reagin Ab [Presence] in Serum by RPR RPR Lab Routine Missed menses , unspecified gestational age Ordered: 05/01/2025 [facility] Comment on above: Ordered: 05/01/2025 Rubella antibody, IgG Rubella an tibody, IgG Lab Routine Missed menses , unspecified gestational age Ordered: 05/01/2025 [facility] Comment on above: Ordered: 05/01/2025 End: 11-30-2022 Tissue exam [facility] Work Phone: Comment on above: Once (Lab) for 1 Occ urrences starting 11/30/2022 until 11/30/2022, 1 completed [facility] c [facility] [place] Immunizations Immunization Date Immunization Notes Care Provider [facility] 09-11-2014 hepatitis A vaccine, adult dosage Nathan Kiesha DO Work Phone: [facility] 09-11-2014 human papilloma viru s vaccine, quadrivalent Nathan Kiesha DO Work Phone: [facility] 09-11-2014 influenza, seasonal, injectable, preservative free Nathan Kiesha DO Work Phone: [facility] 09-11-2014 influenza virus vaccine, unspecified formulation Tonia Moschella DO Work Phone: [facility] 05-04-2014 human papilloma viru s vaccine, quadrivalent Ntahan Kiesha DO Work Phone: [facility] 2014 hepatitis A vaccine, adult dosage Nathan Kiesha DO Work Phone: [facility] 2014 human papilloma viru s vaccine, quadrivalent Nathan Kiesha DO Work Phone: [facility] 2014 tetanus toxoid, redu quinton diphtheria toxoid, and acellular pertussis vaccine, adsorbed Nathan Kiesha DO Work Phone: [facility] 04-03-2007 meningococcal polysaccharide (groups A, C, Y and W-135) diphtheria toxoid conjugate vaccine (MCV4P) Nathan Kiesha DO Work Phone: [facility] 05-03-2000 diphtheria, tetanus toxoids and acellular pertussis vaccine, unspecified formulation Nathan Kiesha DO Work Phone: [facility] 05-03-2000 measles, mumps and rubella virus vaccine Nathan Kiesha DO Work Phone: [facility] 05-03-2000 poliovirus vaccine, inactivated Nathan Kiesha DO Work Phone: [facility] 12-29-1997 diphtheria, tetanus toxoids and acellular pertussis vaccine, unspecified formulation Nathan Kiesha DO Work Phone: [facility] 08-01-1996 DTP-Haemophilus influenzae type b conjugate vaccine Nathan Kiesha DO Work Phone: [facility] 08-01-1996 hepatitis B vaccine, pediatric or pediatric/adolescent dosage Nathan Kiesha DO Work Phone: [facility] 08-01-1996 measles, mumps and rubella virus vaccine Nathan Kiesha DO Work Phone: [facility] 08-01-1996 trivalent poliovirus vaccine, live, oral Nathan Kiesha DO Work Phone: [facility] 1995 DTP-Haemophilus influenzae type b conjugate vaccine Nathan Kiesha DO Work Phone: [facility] 1995 hepatitis B vaccine, pediatric or pediatric/adolescent dosage Nathan Kiesha DO Work Phone: [facility] 1995 trivalent poliovirus vaccine, live, oral Nathan Kiesha DO Work Phone: [facility] 1995 DTP-Haemophilus influenzae type b conjugate vaccine Nathan Kiesha DO Work Phone: [facility] 1995 hepatitis B vaccine, pediatric or pediatric/adolescent dosage Nathan Kiesha DO Work Phone: [facility] 1995 trivalent poliovirus vaccine, live, oral Nathan Kiesha DO Work Phone: [facility] NEGATED: Highlighted row has not occurred!12-02-2022 measles, mumps and rubella virus vaccine Ritu Ryder DO Work Phone: [facility] Comment on above: Deferred: Other - Ru haja Immune NEGATED: Highlighted row has not occurred!12-02-2022 tetanus toxoid, reduced diphtheria toxoid, and acellular pertussis vaccine, adsorbed Ritu Ryder DO Work Phone: [facility] Comment on above: Deferred: No longer needed - Refused Tdap vaccine. Payers Date Payer Category Payer Self-pay 2024 Commercial Managed Care - [employer] [id number] 2024 Private Health Insurance [employer] [id number] 2024 Unknown [id number] 2022 Medicaid HMO [facility] MEDICAID [id number] 2022 Medicaid [id number] 2022 Unknown 2022 Unknown [id number] 2020 Unknown [id number] 2018 Medicaid [id number] 2018 Private Health Insurance [id number] 1995 Unknown [id number] 2.16.840.1.928715.3.579. 2.174 1995 Unknown [id number] 2.16.840.1.076495.3.579. 2.174 1995 Unknown [id number] 2.16.840.1.989609.3.579. 2.727 1995 Unknown [id number] 2.16.840.1.589959.3.579. 2.727 1995 Unknown [id number] 2.16.840.1.509275.3.579. 2.727 1995 Unknown [id number] 2.16.840.1.743343.3.579. 2.7 1995 Unknown [id number] 2.16.840.1.742234.3.579. 2.7 1995 Unknown [id number] 2.16.840.1.165305.3.579. 2.1258 1995 Unknown [id number] 2.16.840.1.351418.3.579. 2.1258 1995 Unknown [id number] 2.16.840.1.035612.3.579. 2.1258 1995 Unknown [id number] 2.16.840.1.893232.3.579. 2.1258 1995 Unknown [id number] 2.16.840.1.254764.3.579. 2.1258 1995 Unknown [id number] 2.16.840.1.186860.3.579. 2.1258 1995 Unknown [id number] 2.16.840.1.900436.3.579. 2.1258 1995 Unknown [id number] 2.16.840.1.102635.3.579. 2.1258 1995 Unknown [id number] 2.16.840.1.777282.3.579. 2.1258 1995 Unknown [id number] 2.16.840.1.831024.3.579. 2.1258 1995 Unknown [id number] 2.16.840.1.381345.3.579. 2.1258 1995 Unknown [id number] 2.16.840.1.919596.3.579. 2.727 Unknown [id number] 2.16.840.1.325180.3.579. 2.531 Social History Date Type Detail Facility Start: 01-06-2021 End: 07-16-2023 Always uses seat belt Always uses seat belt [facility] Start: 12-10-2018 End: 03-10-2021 Tobacco smoking status Never smoked tobacco (finding) [facility] Tobacco smoking status Never [facility] Start: 01-06-2021 End: 07-16-2023 Sex Assigned At Female [place] Madconald [employer] Other Tobacco [facility] Comment on above: denies. Tobacco smoking status [facility] Start: 12-10-2018 End: 04-11-2023 Tobacco use and exposure Smokeless tobacco non-user [facility] Start: 04-11-2023 End: 12-10-2023 Alcohol intake Current drinker of alcohol (finding) [facility] Start: 10-08-2020 Alcohol Comment maybe a few dr martinez a month [facility] Start: 1995 Sex Assigned At Not on file [facility] Start: 01-10-2024 End: 08-12-2025 Alcohol intake Lifetime non-drinker (finding) [facility] Within the last year , have [...] 11-28-2022 History SDOH IPV Fear 2 [facility] Start: 11-28-2022 History SDOH Housing Places Lived 1 [facility] Start: 04-12-2022 [facility] Start: 11-18-2022 End: 12-05-2022 Exposure to SARS-CoV-2 (event) Not sure [facility] Are you now , , , , never or living with a partner? [facility] Do you feel stress - tense, restless, nervous, or anxious, or unable to sleep at night because your mind is troubled all the time - these days [OSQ] Only a little [facility] Start: 12-02-2018 End: 02-03-2025 Sex Female (finding) [facility] Start: 1995 Sex Assigned At Female F [facility] Start: 08-19-2025 Alcoholic beverage intake Current non-drinker of alcohol (finding) [facility] Functional Status Date Assessment Result Facility 07-30-2025 Patient Health Quest ionnaire 2 item (PHQ-2) [Reported] [facility] 09-12-2023 Functional Status N/A [facility] 01-31-2023 Functional Status N/A [facility] 12-30-2022 Functional Status N/A [facility] 11-27-2022 Functional Status N/A [facility] 07-14-2022 N/A [facility] Clinical Notes 04-18-2022 to 08-12-2025 Marbella Keane, [...] San infection Headache History of menstrual cramps ([facility]) Varicella zoster Visual impairment HISTORY PAST MEDICAL HISTORY SOCIAL HISTORY Past Medical History: Diagnosis Date Amenorrhea d/t oral contraceptive pills Endometriosis [place] infection Headache History of menstrual cramps severe Hypertension ([facility]) x1 Varicella zoster unsure Visual impairment w/ [...] History: Procedure Laterality Date APPENDECTOMY 05/2016 at [facility] 12/2022 retained placenta DISTAL [...] nursing note reviewed. Exam conducted with a analytical clerk present. Vitals: Estimated body mass index is 27.82 kg/m as calculated from the following: Height as of 07/30/25: 5' 2 . Weight as of this encounter: 152 lb 1.9 oz. BP: 138/82 Patient's last menstrual period was 02/21/2025. ASSESSMENT & PLAN ICD-10-CM 1. 24 weeks gestation of ([facility]) Z3A.24 POCT urinalysis dipstick manually resulted 2. Second trimester ([facility]) Z34.92 POCT urinalysis dipstick manually resulted 3. [...] on Labetalol 100mg BID. Will refer to [facility] for evaluation. Patient denies any Headache or blurred vision. Documented by Marbella Keane NP on behalf of: Nathan Pop DO documented in this encounter [facility] 07-30-2025 History of Presen t illness Narrative [...] infection Headache History of menstrual cramps Hypertension ([facility]) Varicella zoster Visual impairment Objective ?Quick Links [...] Lipid panel; Future documented in this encounter [facility] 07-15-2025 History of Presen t illness Narrative [...] History: Procedure Laterality Date APPENDECTOMY 05/2016 [place] [facility] 12/2022 retained placenta DISTAL [...] nursing note reviewed. Exam conducted with a analytical clerk present. Vitals: Estimated body mass index is 26.48 kg/m as calculated from the following: Height as of 12/30/24: 5' 2 . Weight as of this encounter: 144 lb 12.8 oz. BP: 120/80 Patient's last menstrual period was 02/21/2025. ASSESSMENT & PLAN ICD-10-CM 1. 20 weeks gestation of ([facility]) Z3A.20 POCT urinalysis dipstick manually resulted 2. Second trimester ([facility]) Z34.92 POCT urinalysis dipstick manually resulted 3. [...] Nathan Pop DO documented in this encounter [facility] 06-22-2025 History of Presen t illness Narrative [...] History: Procedure Laterality Date APPENDECTOMY 05/2016 [place] [facility] 12/2022 retained placenta DISTAL [...] nursing note reviewed. Exam conducted with a analytical clerk present. Vitals: Estimated body mass index is 26.73 kg/m as calculated from the following: Height as of 25: 5' 2 . Weight as of this encounter: 146 lb 1.9 oz. BP: 118/74 Patient's last menstrual period was 02/21/2025. ASSESSMENT & PLAN (Z34.92) Second trimester ([facility]) Plan: POCT urinalysis dipstick manually resulted, Alpha fetoprotein, maternal, Alpha fetoprotein, maternal (Z3A.17) 17 weeks gestation of ([facility]) Plan: POCT urinalysis dipstick manually resulted, Alpha fetoprotein, maternal, Alpha fetoprotein, maternal (Z36.89) Screening, , for anatomic survey ([facility]) Plan: US OB 14+ weeks anatomy scan [...] Nathan Pop DO documented in this encounter [facility] 05-25-2025 History of Presen t illness Narrative [...] History: Procedure Laterality Date APPENDECTOMY 05/2016 [place] [facility] 12/2022 retained placenta DISTAL [...] nursing note reviewed. Exam conducted with a analytical clerk present. Vitals: Estimated body mass index is 25.24 kg/m as calculated from the following: Height as of 12/30/24: 5' 2 . Weight as of this encounter: 138 lb. BP: 122/80 Patient's last menstrual period was 02/21/2025. ASSESSMENT & PLAN ICD-10-CM 1. Second trimester ([facility]) Z34.92 POCT urinalysis dipstick manually resulted 2. 13 weeks gestation of ([facility]) Z3A.13 Return OB: Patient presents today for [...] Nathan Pop DO documented in this encounter [facility] 05-01-2025 History of Presen t illness Narrative [...] Relation Name Age of Onset Hypertension Mother trcaie Colon cancer Father Anemia Father Breast cancer Maternal Grandmother Hypertension Maternal Grandfather sachin Cancer Maternal Grandfather sachin Colon cancer Paternal Grandfather Social History Tobacco Use Smoking status: Never Smokeless tobacco: Never Substance Use Topics Alcohol use: Never Comment: caffeine: 1-2 cups per day, coffee and pop Drug use: Never Past Surgical History: Procedure Laterality Date APPENDECTOMY 05/2016 [place] [facility] 12/2022 retained placenta DISTAL [...] or undercooked meat, [facility]. [facility] has also been advised [...] Hina Go LPN documented in this encounter [facility] 01-19-2025 History of Presen t illness Narrative Reason for Appointment: Patient ID: Driss Gama is a 29 y.o. female who presents for Painful Sentinel Patient presents today for Consult appointment. MEDICATIONS Current Outpatient Medications Medication Instructions pvrgncmzhg-eukegwqpyvrdp-kyayki ne 50-325-40 MG tablet 1 tablet, Oral, [...] Dysmenorrhea 03/29/2023 Endometriosis 03/29/2023 Gastroparesis 03/29/2023 Hypertension ([facility]) 03/29/2023 Intractable migraine without aura and with status migrainosus ([facility]) 03/29/2023 Migraines ([facility]/HCC) 03/29/2023 Chronic pelvic pain in female 03/29/2023 Pain in female genitalia on intercourse 03/29/2023 Pain on swallowing 03/29/2023 Panic disorder ([facility]) 03/29/2023 Patellofemoral disorders, left knee 03/29/2023 Patellofemoral disorders, right knee 03/29/2023 Posterior calcaneal exostosis 03/29/2023 Scapular dyskinesis 03/29/2023 Scoliosis 03/29/2023 Seasonal allergic rhinitis due to pollen 03/29/2023 Tachycardia, paroxysmal ([facility]) 03/29/2023 Tension headache 03/29/2023 Vitamin B12 deficiency [...] Headache History of menstrual cramps severe Hypertension ([facility]) x1 Varicella zoster unsure Visual impairment w/ [...] History: Procedure Laterality Date APPENDECTOMY 05/2016 [place] [facility] 12/2022 retained placenta DISTAL [...] nursing note reviewed. Exam conducted with a analytical clerk present. Vitals: Estimated body mass index is [...] patient and patient given direct extension to [employer] for any questions/concerns pertaining to fertility. Documented by Christa Yanes LPN on behalf of: Nathan Pop DO documented in this encounter [facility] 12-30-2024 History of Presen t illness Narrative [...] History: Procedure Laterality Date APPENDECTOMY 05/2016 at [facility] 12/2022 retained placenta DISTAL CLAVICLE EXCISION Right 07/2018 Shoulder - open - DAP LAPAROSCOPY DIAGNOSTIC / BIOPSY / ASPIRATION / LYSIS 02/2019 endometriosis, 2020 LAPAROSCOPY DIAGNOSTIC / BIOPSY / ASPIRATION / LYSIS 02/29/2024 SHOULDER SURGERY Right open distal clavicle excision-DAP VAGINAL DELIVERY 11/2022 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 Current Outpatient Medications: hbgxfencnz-xdcgxwshpdjzr-ueczua ne 50-325-40 MG tablet, Take 1 tablet by mouth every 6 (six) hours if needed for headaches, Disp: 20 tablet, Rfl: 0 desogestrel-ethinyl estradiol (Apri) 0.15-30 MG-MCG tablet, Take 1 tablet by mouth Daily, Disp: 21 tablet, Rfl: 12 metoprolol succinate XL (Toprol-XL) 25 MG 24 hr tablet, Take 1 tablet by mouth daily, Disp: 90 tablet, Rfl: 1 documented in this encounter [facility] 08-18-2024 History of Presen t illness Narrative Reason for Appointment: Patient ID: Driss Cope is a 29 y.o. female who presents for Well Women Visit Patient presents today for Annual Exam. MEDICATIONS Current Outpatient Medications Medication Instructions fjzjqefvtd-itnkhhihrcqxn-ipimbw ne 50-325-40 MG tablet 1 tablet, Oral, [...] History: Procedure Laterality Date APPENDECTOMY 05/2016 [place] [facility] 12/2022 retained placenta DISTAL [...] nursing note reviewed. Exam conducted with a analytical clerk present. Vitals: Estimated body mass index is [...] Zenobia Gutierrez PA-C documented in this encounter [facility] 07-22-2024 History of Presen t illness Narrative Reason for Appointment: Patient ID: Driss Cope is a 29 y.o. female who presents for Dysmenorrhea Patient presents today for Acute Visit. MEDICATIONS Current Outpatient Medications Medication Instructions ycgxdtawbh-wglihgcdtwgsb-krdeot ne 50-325-40 MG tablet 1 tablet, Oral, [...] 03/29/2023 Pain on swallowing 03/29/2023 Panic disorder ([facility]) 03/29/2023 Patellofemoral disorders, left knee 03/29/2023 Patellofemoral disorders, right knee 03/29/2023 Posterior calcaneal exostosis 03/29/2023 Scapular dyskinesis 03/29/2023 Scoliosis 03/29/2023 Seasonal allergic rhinitis due to pollen 03/29/2023 Tachycardia, paroxysmal ([facility]) 03/29/2023 Tension headache 03/29/2023 Vitamin B12 deficiency [...] Headache History of menstrual cramps severe Hypertension ([facility]) x1 Varicella zoster unsure Visual impairment w/ [...] History: Procedure Laterality Date APPENDECTOMY 05/2016 at [facility] 12/2022 retained placenta DISTAL [...] nursing note reviewed. Exam conducted with a analytical clerk present. Vitals: Estimated body mass index is [...] Nathan Pop DO documented in this encounter [facility] 04-29-2024 Telephone encounter Note Received message from albert Webb to cancel surgery and all appts as pt had services elsewhere [facility] 04-29-2024 Miscellaneous Notes Received message from albert Webb to cancel surgery and all appts as pt had services elsewhere documented in this encounter [facility] 04-25-2024 Telephone encounter Note Pt got in sooner for surgery with her local coding quality coordinator. Please cancel surgery and all pre and post op appts. [facility] 04-25-2024 Miscellaneous Notes Pt got in sooner for surgery with her local coding quality coordinator. Please cancel surgery and all pre and post op appts. documented in this encounter [facility] 01-10-2024 History of Presen t illness [...] History: Procedure Laterality Date APPENDECTOMY 05/2016 at [facility] 12/2022 retained placenta DISTAL [...] nursing note reviewed. Exam conducted with a analytical clerk present. Vitals: Estimated body mass index is [...] Nathan Pop DO documented in this encounter [facility] 01-03-2024 Miscellaneous Notes Refill(s) request: Requested Prescriptions [...] mg tablet Class: Normal Route: ORAL Order: [id number] E-Prescribing Status: Receipt confirmed by pharmacy (05/17/2023 [...] that may recur and often requires a termite exterminator treatment plan. Once endometriosis is identified, there [...] Department Center 05/20/2024 10:00 AM Kevin Pires Financial Service Professional [facility] 10:30 AM Charlene Rodriguez DO [facility] Appointment scheduled: As listed above Action taken: Refill request routed to clinician Pippa Simon RN January 03, 2024 4:29 PM Patient: Driss Cope : 1995 Provider: Charlene Rodriguez DO Caller Phone #: [phone] (home) [phone] (cell) Reason for call: b/c refill Message routed to nurse triage Date of next visit: MEGAN: 12/10/2023 documented in this encounter [facility] 12-10-2023 Note HNO ID: [id number] Author: CHARLENE RODRIGUEZ DO Service: ? 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 [facility] 09-12-2023 Hospital Discharg e instructions Patient [...] Follow these instructions at home: Medicines Take vxve-zkr-rlankos and prescription medicines only as told by [...] buy a blood pressure monitor at most [employer] or online. Where to find more information [place] [employer]: www.heart.org Contact a health care [...] provider. Document Revised: 07/27/2022 Document Reviewed: 07/27/2022 [employer] Patient Education 2022 [employer]. 09/12/2023 18:18:13 Hypertension, Adult, Vxxy-wg-Smqo Hypertension, Adult Hypertension is another name for [...] doctor. Keep all follow-up visits. Medicines Take dgpx-jva-sfvqpsy and prescription medicines only as told by [...] provider. Document Revised: 08/31/2022 Document Reviewed: 08/31/2022 [employer] Patient Education 2022 [employer] 09/12/2023 18:18:13 General Headache Without Cause, Cftn-ur-Qewr General Headache Without Cause A headache is pain or discomfort you feel around the head or neck area. There are many causes and types of headaches. In some cases, the cause may not be found. Follow these instructions at home: Watch your condition for any changes. Let your doctor know about them. Take these steps to help with your condition: Managing pain Take oahh-nhy-vjlvgzg and prescription medicines only as told by [...] provider. Document Revised: 04/12/2022 Document Reviewed: 04/12/2022 [employer] Patient Education 2022 [employer]. Follow Up Care 09/12/2023 17:21:57 With:CRUZ RODRÍGUEZ [facility] [place] [address] Business (1) When:09/15/2023 18:03:37 Comments:Follow-up with your primary care provider in 3 to 5 days. If symptoms worsen, do not improve, or new symptoms arise please report back to emergency department for further evaluation. [facility] 09-12-2023 Evaluation + Plan note Extrac tank [...] date 09/12/23 18:02:00 EDT, 09/12/23 18:02:00 EDT [facility]10-16-2023 Instructions* Patient Instructions* Srinivasa Downs APRN.CNP - 09/10/2023 9:52 AM EDT Plan: Trial baclofen suppositories - can switch to pill vaginally if suppositories are not affordable Consider Pelvic floor physical therapy - can find local provider [email or web address] Consider going back to see Dr Michael Downs APRN.CNP [facility] NoteHNO ID: [id number] Author: Charlene Rodriguez DO Service: ? Author Type: Physician Type: Progress Notes Filed: 08/30/2023 11:15 AM Note Text: Tramadol rx sent to pharmacy.[facility]10-05-2023 History of Present illness Narrative* Charlene Rodriguez DO - 08/30/2023 11:13 AM EDT Tramadol rx sent to pharmacy. [facility] Miscellaneous Notes* Telephone Encounter - Chelsie Dueñas RN - 08/30/2023 10:50 AM EDT Last office visit: 08/24/2023 Assessment and Plan No diagnosis found. Trial baclofen suppositories Will send list of PTs Consider going back to Michael SIGNATURE: Srinivasa Downs APRN.PHOTOFINISHING LABORATORY WORKER Office visit with Dr. Rodriguez 07/16/2023 IMPRESSION: [...] plan. Charlene Rodriguez DO [facility]23 NoteHNO ID: [id number] Author: Srinivasa Downs APRN.PHOTOFINISHING LABORATORY WORKER Service: ? Author Type: Nurse Practitioner Type: Progress Notes Filed: 09/10/2023 9:53 AM Note Text: [facility] [place] Department of Benign Gynecology [facility] PATIENT NAME: Driss Cope DATE: 08/24/2023 Patient Name and verified: Yes Patient Location: [place] This Virtual Visit was completed using My Chart Zoom platform. I have communicated my name and active licensure. The patient's identity and physical location were verified at the time of this visit. Either the patient or their legal client services representative has been informed of the risks [...] appointment yet. 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 [facility] Department of Benign Gynecology [facility] PATIENT NAME: Driss Cope DATE: 08/24/2023 Patient Name and verified: Yes Patient Location: [place] This Virtual Visit was completed using My Chart Zoom platform. I have communicated my name and active licensure. The patient's identity and physical location wereverified at the time of this visit. Either the patient or their legal client services representative has been informed of the risks [...] appointment yet. GI - constipation is improved Sentinel - hasn't tried due to pain and [...] physical therapy - or can go locally [facility] Trial flexeril at bedtime Can consider Baclofen suppositories Continue Norethindrone - can take up to 3 months for it to stop periods, take at same time every day Relaxation techniques Srinivasa Downs APRN.PHOTOFINISHING LABORATORY WORKER OB History T0 L1 SAB0 IAB0 Ectopic0 Multiple0 Live Births0 Financial Service Professional History LMP: 07/08/2023 (Exact Date), Having periods Age at Menarche: 14 Age at First : 27 Age at Menopause: Financial Service Professional History Comments: Sexual Activity: Never; No partner [...] Level: 3 - Low [facility] Miscellaneous Notes* Telephone Encounter - Marilee [...] Provider: Charlene Rodriguez DO Caller Phone #: [phone] (home) [phone] (cell) Reason for call: pt calling regarding mc message., still in pain. Please call [phone] Message routed to nurse triage Date of next visit: [facility] Miscellaneous Notes* Telephone Encounter - Christa Suárez RN - 08/02/2023 11:29 AM EDT PA for orilissa completed via Cover MyMeds. Driss Cope (Morales: [id number]) - [id number] Orilissa 150MG tablets Status: Sent To Plan [...] too. Please advise. Thanks. documented in [facility] encounter[facility]08-[facility]-2023 NoteHNO ID: [id number] Author: Charlene Rodriguez, DO Service: ? 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 Author Type: Rn Testing Type: Progress Notes Filed: 06/12/2023 4:32 PM [...] BY: RT Claudia(Bryant) June 12, 2023 4:32 [facility]23 NoteHNO ID: [id number] Author: Boo Singh RN Service: Nursing Author [...] Cope DATE: June 12, 2023 TIME: 1:43 [facility]06-22-2023 NoteHNO ID: [id number] Author: Charlene Rodriguez, DO Service: ? 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 Charlene Rodriguez DO Tt: 20 minutesTri[facility] History of Present illness Narrative* Charlene Rodriguez DO - 05/17/2023 1:05 PM EDT Images from the original note were not included. 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 Biggest complaint is cramping. Has had 3 periods of bleeding recently - 04/22/2023 LMP, last a few days, 05/04-05/10 bleeding again 05/11/2023 started again today. Takes aygestin 5mg daily. She did not picker packer flexeril. Encourage to picker packer the flexeril as this will help with the cramping. Reviewed red flag bleeding symptoms that require trip to ER (soaking greater than one overnight padper hour, chest pain, shortness of breath, fatigue, palpitations).. Advised keep appt. Gives verbal understanding. Appointments for Next 60 Days Date Time Provider Location Dept Phone 05/17/2023 1:00 PM CHARLENE RODRIGUEZ [facility] [phone] Christa Suárez RN * Telephone Encounter - Tawana Nair [facility] - 05/11/2023 1:19 PM EDT Reason for call: other - Vaginal bleeding Provider name: Dr Rodriguez Additional comments: patient having more vaginal bleeding and concerned she is getting worse. Recommendation: routed to nurse triage pool documented in this encounterPark[facility] Hospital06-06-2023 Instructions* Patient Instructions* Srinivasa Downs APRN.CNP - 05/01/2023 11:47 AM EDT Plan Pelvic floor physical therapy - or can go locally [email or web address] Trial flexeril at bedtime Can consider Baclofen [...] pelvic pain society ([email or web address]) documented in this encounterPark[facility] Hospital06-06-2023 History of Present illness Narrative* Srinivasa Downs APRN.PHOTOFINISHING LABORATORY WORKER - 05/01/2023 10:30 AM EDT Driss Cope is a 28 year old female who presents for problem visit for pain HPI: Pain is week before period and week of period. Worse on her period for every day she's bleeding Urinary - No symptoms GI - Always constipated. 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 Author Type: Nurse Practitioner Type: Progress Notes Filed: 05/09/2023 11:46 AM Note Text: Driss Cope is a 28 year old female who presents for problem visit for pain HPI: Pain is week before period and week of period. Worse on her period for every day she's bleeding Urinary - No symptoms GI - Always constipated. 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 Lucila Foss RN documented in [facility]Park[facility] Hospital Discharge instructions Patient Education 01/31/2023 [...] told by your health care provider. Take nssv-ntt-cdkplzh and prescription medicines only as told by [...] 01/03/2007 Document Revised: 10/25/2018 Document Reviewed: 01/25/2018 [employer] Patient Education 2020 [employer]. Follow Up Care 01/31/2023 13:43:01 With:Cruz Meza Address:Unknown When:02/03/2023 18:59:31 Comments:Follow-up for evaluation of hypertension in context of known preeclampsia in the period With:CRUZ RODRÍGUEZ Address: [address] [place] [address]- Business (1) When:Within 3 Day(s) [facility]03-08-2023 Evaluation + Plan noteExtracted from: Title:ED Note Author:Mayur Mabry PA-C e:01/31/23 Flank pain (R10.9: Unspecifi ed abdominal pain) Headache (R51.9: Headache, unspecified) Orders: CTA Chest Hepatic Function Panel [facility]02-04-2023 Hospital Discharge instructions Patient Education 12/30/2022 13:59:51 SR. SOCIAL MEDIA & MOBILE MANAGER - Post D&C, Hysteroscopy, LEEP or Essure/Laparoscopy [...] Instructions - FT (Custom) (Custom) 12/30/2022 13:55:16 SR. SOCIAL MEDIA & MOBILE MANAGER - Post D&C, Hysteroscopy, LEEP or Essure/Laparoscopy [...] With:Cruz Meza Address: [address], [address] [address]- Business (1) When: Unknown Comments:follow up in 1-2 weeks With:CRUZ RODRÍGUEZ Address: [address] [place] [address] Business (1) When:01/02/2023 09:21:18 [facility]02-04-2023 Evaluation + Plan noteExtracted from: Title:ANES Post-operative [...] Note Author:Vamsi BLACKWELL, Bryant Barron Date:12/30/22 Plan [place] [employer] Anesthesiologists (ASA) physical status classification: [...] With Cult Reflex US Pelvis Non-OB Complete [facility]01-10-2023 History of Present illness Narrative* Tory Pimentel [...] WHC: This patient was seen in the [facility] by the resident. I reviewed and agree with the care provided by the resident during or immediately following the visit including the patient's medical history, the resident's finding in the physical exam, patient's diagnosis and treatment plan. documented in this [facility]01-07-2023 NoteDepartment of Obstetrics and Gynecology Delivery Discharge Summary Admission on 11/28/2022 12:24 AM Hospital course: Driss Cope at 35w1d admitted as a transfer from [facility]. She was started on Magnesium there and [...] for the patient's : Megan CopeMark Anthonysudha [[id number]] female 2425 g (5 lb 5.5 oz) Apgars: Information for the patient's : Francie Cope [[id number]] : : Girl Blood Type/Rh: O Antibody [...] Your Medications These medications were sent to [facility] [address] [place] [address] Hours: Sunday to Sunday 10 am to 6 pm docusate sodium 100 MG capsule ibuprofen 600 MG tablet NIFEdipine XL 30 MG 24 hr tablet Activity: Activity as tolerated Diet: Regular diet Follow-up Appointments: - visit - Blood pressure check If a patient meets criteria for hypertension, make sure the following are done prior to discharge: [] Order a blood pressure kit through [facility] (or the patient's own pharmacy on the weekend) [] Order the blood pressure log through [facility] [x] Place an office visit or telephone [...] notify her physician if any of these occur.[facility]01-07[facility] History of Present illness Narrative* Anna [...] with more than 50% of the total xiuh-dr-fsna time of the visit in counseling/coordination of [...] be monitored and followed by the diet rf technician. CRISS Oshea * Alejandra Arcos RN [...] and reassuring. CCM. Cx:1/70/-3 FHT: Cat 1 Escobares:q3-4 min A/P: 1. IOL-PreEwSF. FHT 130 baseline, with moderate variability, Accelerations present Yes, and rare late deceleration . Cervical exam unchanged. Cytotec x4 placed at this time. Patient intermittently feeling contractions. BP mild range. Cx: 1-270/-3 FHP: defer FHT: Cat I Escobares: a3-4min A/P: 1. IOL-PreEwSF: FHT Category I, [...] Cx: unchanged FHP: defer FHT: Cat I Escobares: q4min A/P: 1. IOL-PreEwSF: FHT Category I, [...] 11/29/2022 6:17 AM Cx:1-260/-3 FHT: Cat I Escobares:q4-5mins A/P: 1. IOL-PreEwSF: Cat I FHT with [...] per protocol. CCM. Cx:defer FHT: Cat I Escobares:q4-6mins A/P: 1. IOL-PreEwSF: Cat I FHT with baseline 120, moderate variability, spontaneous accelerations, and no decelerations. BP normotensive to mild range since last note time. Pitocin @ 2 cc/hr, continue to titrate per protocol. Magnesium sulfate running for seizure prophylaxis, UOP 400 ml over past 4hours. CCM. Cx:defer FHT: Cat I Escobares:q4-5mins A/P: 1. IOL-PreEwSF: Cat I FHT with baseline 135, moderate variability, spontaneous accelerations, and no decelerations. BP normotensive to mild range since last note time. Pitocin @ 6 cc/hr, continue to titrate per protocol. Magnesium sulfate running for seizure prophylaxis, UOP 600 ml over past 4hours. Will plan for AROM soon. CCM. Cx:defer FHT: Cat I Escobares:irritability A/P: 1. IOL-PreEwSF: Pit @ 8 mu/min. Patient resting comfortably and only irritability tracing on toco. BP most recently mild range. On magnesium sulfate for seizure prophylaxis. UOP adequate. Continue magnesium and continue to titrate pitocin per protocol. Plan for AROM once patient rudi more regularly. Electronically signed by Cortney Velasquez DO 11/29/2022 4:21 PM Cx:/-3 FHT: Cat 1 Escobares:Not tracing A/P: 1. IOL-PreEwSF. FHT 135 baseline, with moderate variability, Accelerations present Yes, and nodecelerations seen . AROM at this time for moderate amount blood tinged fluid. Pitocin at 8cc/hr. Maternal BP mild range. On Magnesium for Seizure prophylaxis. Patient with adequate urinary output. [facility]. Cx: defer FHP: defer FHT: Cat II Escobares: not tracing well A/P: 1. IOL-PreEwSF: FHT [...] per RN FHP: defer FHT: Cat II Escobares: q4min A/P: 1. IOL-PreEwSF: FHT Category II [...] delivery note for details documented in this [facility]01-07-2023 Hospital course Narrative* César Trna DO - 12/02/2022 12:32 PM EST Images from the original note were not included. Department of Obstetrics and Gynecology Delivery Discharge Summary Admission on 11/28/2022 12:24 AM Hospital course: Driss Cope at 35w1d admitted as a transfer from [facility] for [facility]. She was startedon Magnesium there and transported [...] Information for the patient's : Francie Cope [[id number]] female 2425 g (5 lb 5.5 oz) Apgars: Information for the patient's : Francie Cope [[id number]] : : Girl Blood Type/Rh: O Antibody [...] Your Medications These medications were sent to [facility] [address] [place] [address] Hours: Sunday to Sunday 10 am to 6 pm docusate sodium 100 MG capsule ibuprofen 600 MG tablet NIFEdipine XL 30 MG 24 hr tablet Activity: Activity as tolerated Diet: Regular diet Follow-up Appointments: - visit - Blood pressure check If a patient meets criteria for hypertension, make sure the following are done prior to discharge: [] Order a blood pressure kit through [facility] (or the patient's own pharmacy on the weekend) [] Order the blood pressure log through [facility] [x] Place an office visit or telephone [...] any of these occur. documented in this [facility]01-06-2023 Note* Care Coordination - Christine Michelle [...] home. Denies any concerns at this time. [facility] [id number] Note* Care Coordination - Christine Michelle RN [...] home. Denies any concerns at this time. [facility] [id number] Miscellaneous Notes* Care Coordination - Christine Michelle [...] indicated for this pt. Due to: in [facility] Hospital breast pump, supplies kit, swabs and [...] Told patient to check with LC in [facility] for smaller flange sizes * L&D Delivery Note - Irina Karmer DO - 11/30/2022 4:04 AM EST Images from the original note were not included. Vaginal Delivery Note Department of Obstetrics and Gynecology Patient: Driss Cope : 1995 Date of delivery: 11/30/2022 Pre-operative Diagnosis: Driss Mojica0 at 35w1d 1. <37 weeks 2. PreEwSF Post-operative Diagnosis: Live Born female Delivering Arborist & Obiee Consultant(s): Dr. Bowden; Dr. Kramer Infant Information: Information for the patient's : Francie Cope [[id number]] Information for the patient's : Francie Cope [[id number]] Description: normal Meconium Noted: No Anesthesia: epidural [...] change. Clotilde Mg RN documented in this [facility]01-06-2023 Obstetrics Note* Note - Ligia Bridges RN - 12/01/2022 9:00 AM EST 22.5mm flanges given to patient. Encouraged her to call for observation of pump session and smallerflanges. Martha in NICU to assist with personal pump. [facility] [id number] Hospital Discharge instructions* Discharge Instructions* Carol Bowden [...] as 8 weeks after delivery. Bleeding may picker packer and then decrease again around 7-10 days [...] avoid constipation you may take a mild ygxr-yew-jlddtot stool softener (such as colace) as recommended [...] positive or a Person Under Investigation (PUI) Zihrbl-wh-xrbzw transmission of COVID-19 during is unlikely, but after a baby is susceptible to itoziv-ro-cgngwg spread. After your baby is born, your [...] clean your hands with an alcohol-based hand retail stocker that contains at least 60% alcohol. Clean your hands often Wash your hands often with soap and water for at least 20 seconds, especially after blowing your nose, coughing, or sneezing; going to the bathroom; and before eating or preparing food. If soap and water are not readily available, use an alcohol-based hand retail stocker with at least 60% alcohol, covering all [...] isolation precautions should be made on a pxqb-tk-xzzm basis, in consultation with healthcare providers and [facility] local health departments. Information on COVID-19 [...] respiratory tract signs and symptoms. Ways to [place] with Anxiety & Stress It is normal [...] an illness that was first found in [facility], in October 2019. It has since spread [...] seen in people before. This virus spreads prkgsn-br-zsxnvd through droplets from coughing and sneezing. It [...] water aren't available, use an alcohol-based hand retail stocker. Call 911 anytime you think you may [...] of: February 25, 2020 Content Version: 12. [employer]. Care instructions adapted under license by your healthcare professional. If you have questions about a medical condition or this instruction, always ask your healthcare professional. [employer] disclaims any warranty or liability for your use of this information. General Recommendations for Routine Cleaning and Disinfection of Households Community members can practice routine cleaning of frequently touched surfaces (for example: tables, doorknobs, light switches, handles, desks, toilets, faucets, sinks) with household home health registered nurse and EPA-registered disinfectants that are appropriate for [...] appropriate. These supplies include tissues, paper towels, home health registered nurse and EPA-registered disinfectants (see list link at [facility] website). If a separate bathroom is not [...] be used for other purposes. Consult the liner machine operator helper's instructions for cleaning and disinfection products used. [...] used if appropriate for the surface. Follow liner machine operator helper's instructions for application and proper ventilation. Check [...] EPA-approved emerging viral pathogens [facility] iconexternal icon are expected to be effective against COVID-19 based on data for harder to kill viruses. Follow the liner machine operator helper's instructions for all cleaning and disinfection products (e.g., concentration, application method and contact time, etc.). Soft (porous) surfaces such as carpeted floor, rugs, and drapes Remove visible contamination if present and clean with appropriate home health registered nurse indicated for use on these surfaces. After cleaning: Launder items as appropriate in accordance with the liner machine operator helper's instructions. If possible, launder items using the [...] items as appropriate in accordance with the liner machine operator helper's instructions. If possible, launder items using the warmest appropriate water setting for the items and dry items completely. Dirty laundry from an ill person can be washed with other people's items. Clean and disinfect clothes hampers according to guidance above for surfaces. If possible, considerplacing a food bagging machine operator that is either disposable (can be thrown away) or can be laundered. CDC has a list of EPA approved cleaning products on their website - https://www.cdc.gov/coronavirus/ 2019-ncov/community/home/cleaning-disinfection.html https://www.Notrefamille.com/Qmslp-Lpxazvdsmzn-Ixwyihpf-Products-List.pdf [employer] with delivery and picker packer services: [employer]: Free picker packer at locations Delivery is $12.95 a month Website - Propriet[employer]Direto Berthold: Balance Recesser $2.95 (1st order is free) Delivery is $14.95 Website - [employer] [place]: histology supervisor is free Delivery is $5.95 Website - twidoxeaEquiomeContext Labs [employer]: histology supervisor is $4.95 Delivery is $9.95 Website [employer]: histology supervisor is $4.95 Delivery is $9.95 Website [employer]: Can be ordered for delivery and picker packer with [employer] Website - www.[employer]: Free deliver for first 3 orders of $35 or more Website - aldi.SafetyPay Will deliver from [employer], [employer], [employer], and [employer]. Annual membership is $99 Monthly membership is $14 * Attachments The following attachments cannot be sent through Care Everywhere. * Preeclampsia Discharge Instructions (Surinamese) documented in this encounterSShelby Memorial [id number] Obstetrics Note* Note - Sheila Harrell RN - 11/30/2022 10:37 AM EST Swabs given to patient and educated how to use and to bring to CRISTIAN [facility] [id number] Obstetrics Note* Note - Sheila Harrell RN - 11/30/2022 10:30 AM EST Breast pump use indicated for this pt. Due to: in [facility] Hospital breast pump, supplies kit, swabs and [...] LC in SCN for smaller flange sizes [facility] [id number] NotePatient: Driss Cope Procedure Summary Date: 11/29/22 [...] discharged once all PACU criteria has been met.[facility]01-05-2023 NotePatient: Driss Cope Procedure Summary Date: [...] Allowed opportunity for questions and acknowledgement of understanding.[facility]01-05-2023 Labor and delivery summary note* L&D Delivery Note - Irina Kramer DO - 11/30/2022 4:04 AM EST Images from the original note were not included. Vaginal Delivery Note Department of Obstetrics and Gynecology Patient: Driss Cope : 1995 Date of delivery: 11/30/2022 Pre-operative Diagnosis: Driss Mojica0 at 35w1d 1. <37 weeks 2. PreEwSF Post-operative Diagnosis: Live Born female Delivering Arborist & Obiee Consultant(s): Dr. Bowden; Dr. Kramer Infant Information: Information for the patient's : Francie Cope [[id number]] Information for the patient's : Francie Cope [[id number]] Description: normal Meconium Noted: No Anesthesia: epidural [...] surgery as described in the resident note. [facility] [id number] NoteEpidural Block Time Out: 11/29/2022 6:17 PM Patient location during procedure: OB Start time: 11/29/2022 6:18 PM End time: 11/29/2022 6:45 PM Reason for block: labor analgesia Staffing Performed: CORPORATE WEBMASTER Resident/CORPORATE WEBMASTER: Jimmie Kaur APRN - JASMYN Preanesthetic Checklist [...] saline Guidance: landmark technique Needle Needle type: AWAKming Needle gauge: 17 G Needle length: 9 cm Needle insertion depth: 5 cm Catheter type: multi-orifice Catheter size: 19 G Catheter at skin depth: 10 cm Catheter securement method: surgical tape, liquid medical adhesive and clear occlusive dressing Test dose: negative Assessment Sensory level: T10 Block outcome: pain improved Number of attempts: 1 Procedure assessment: patient tolerated procedure well with no immediate complicationsProMedica [facility]01-04-2023 Plan of care note* Care Plan - Clotilde Mg RN - 11/29/2022 7:45 AM EST The patient will continue to make cervical change. Clotilde Mg RN [facility] [id number] NotePatient: Driss Cope Procedure Information Date: 11/28/22 [...] patient is not NPO Additional Equipment [facility]01-03-2023 NoteLabor Progress Note Date: 11/28/2022 Time: [...] and reassuring. CCM. Cx:/-3 FHT: Cat 1 Escobares:q3-4 min A/P: 1. IOL-PreEwSF. FHT 130 baseline, with moderate variability, Accelerations present Yes, and rare late deceleration . Cervical exam unchanged. Cytotec x4 placed at this time. Patient intermittently feeling contractions. BP mild range. Cx: 1-/-3 FHP: defer FHT: Cat I Escobares: a3-4min A/P: 1. IOL-PreEwSF: FHT Category I, [...] Cx: unchanged FHP: defer FHT: Cat I Escobares: q4min A/P: 1. IOL-PreEwSF: FHT Category I, [...] 11/29/2022 6:17 AM Cx:1-2/60/-3 FHT: Cat I Escobares:q4-5mins A/P: 1. IOL-PreEwSF: Cat I FHT with [...] per protocol. CCM. Cx:defer FHT: Cat I Escobares:q4-6mins A/P: 1. IOL-PreEwSF: Cat I FHT with baseline 120, moderate variability, spontaneous accelerations, and no decelerations. BP normotensive to mild range since last note time. Pitocin @ 2 cc/hr, continue to titrate per protocol. Magnesium sulfate running for seizure prophylaxis, UOP 400 ml over past 4 hours. CCM. Cx:defer FHT: Cat I Escobares:q4-5mins A/P: 1. IOL-PreEwSF: Cat I FHT with baseline 135, moderate variability, spontaneous accelerations, and no decelerations. BP normotensive to mild range since last note time. Pitocin @ 6 cc/hr, continue to titrate per protocol. Magnesium sulfate running for seizure prophylaxis, UOP 600 ml over past 4 hours. Will plan for AROM soon. CCM. Cx:defer FHT: Cat I Escobares:irritability A/P: 1. IOL-PreEwSF: Pit @ 8 mu/min. Patient resting comfortably and only irritability tracing on toco. BP most recently mild range. On magnesium sulfate for seizure prophylaxis. UOP adequate. Continue magnesium and continue to titrate pitocin per protocol. Plan for AROM once patient rudi more regularly. Electronically signed by Cortney Velasquez DO 11/29/2022 4:21 PM Cx:/-3 FHT: Cat 1 Escobares:Not tracing A/P: 1. IOL-PreEwSF. FHT 135 baseline, with moderate variability, Accelerations present Yes, and no decelerations seen . AROM at this time for moderate amount blood tinged fluid. Pitocin at 8cc/hr. Maternal BP mild range. On Magnesium for Seizure prophylaxis. Patient with adequate urinary output. CCM. Cx: defer FHP: defer FHT: Cat II Escobares: not tracing well A/P: 1. IOL-PreEwSF: FHT Category II for brief period of lates vs early deceleration (more content not included)...[facility]01-03-2023 NoteObstetrical History and Physical CHIEF COMPLAINT: [...] 34w6d Is this patient being delivered between 48b2r-57h0r weeks with an acceptable medical indication (obstetric, maternal, and/or )? NA: Not Applicable: This patient is being delivered outside of the PC-01 range (99e0u-32x8c) for reasons indicated in the medical record. [...] VTE Prophylaxis: Not Indicated (more content not included)...[facility]01-03-2023 History and physical note* Cassie Constantino [...] 34w6d Is this patient being delivered between 83v2f-53u5v weeks with an acceptable medical indication (obstetric, maternal, and/or )? NA: Not Applicable: This patient is being delivered outside of the PC-01 range (80i4z-77a4h) for reasons indicated in the medical record. [...] plan. Cassie Constantino MD 11/28/2022, 12:48 AM [facility] [id number] History and physical note* Cassie Constantino MD [...] 34w6d Is this patient being delivered between 91l8z-46t9k weeks with an acceptable medical indication (obstetric, maternal, and/or )? NA: Not Applicable: This patient is being delivered outside of the PC-01 range (81q6g-75w0p) for reasons indicated in the medical record. [...] MD 11/28/2022, 12:48 AM documented in this [facility]01-02-2023 Evaluation + Plan note Extracted from: Title:OB High Risk Antepartum Visit * Author:WINSOME PRESCOTT MD [place] Date:11/27/22 Impression and Plan Diagnosis 34 weeks 5 days. Preeclampsia. contractions. Maternal tachycardia.. Course: Worsening, New onset headache may be a signal of worsening symptoms of preeclampsia.. Orders I discussed this case with the maternal- medicine department at [facility] in [facility], Dr. Thea Nieves, she accepted to transfer due to preeclampsia. Plan: Magnesium sulfate per protocol, betamethasone, transfer arrangements are in progress.. 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 She is provided with a note for work. Additional diagnosis: Constipation, UTI and [facility]08-19-2022 Hospital Discharge instructions Follow Up Care 07/14/2022 06:07:36 With:Cruz Meza Address:Unknown When:07/17/2022 07:24:48 With:CRUZ RODRÍGUEZ Address: [address] [place] [address]- Business (1) When:Within 3 Day(s) [facility]08-19-2022 Hospital Discharge instructions Follow Up Care 07/14/2022 04:40:16 With:Cruz Meza Address: [address], [address] [place] [address]- Business (1) When:07/17/2022 Comments:Appointment has already been scheduledCall Dr if fever>100.5 F, heavy bleedingCall for any problems.Call for severe abdominal painCall physician for heavy vaginal bleedingCall physician if symptoms worsenPlease call if you need to rescheduleReturn for contractions closer, longer, harderReturn ifruptured membranes or vaginal bleeding [facility] Evaluation + Plan note Diagnostic Tests Pending * [id number] 04/25/22 * NIGEL w/Reflex if POS 04/25/22 * Ceruloplasmin 04/25/22 * HCV Antibody RFX to Quant PCR 04/25/22 * HBV Core Ab 04/25/22 * Hepatitis B Surface Antibody 04/25/22 * Hepatitis B Surface Antigen 04/25/22 * Smooth Muscle Antibody Screen 04/25/22 [facility]05-24-2022 Evaluation note* Encounter Date Diagnosis Assessment Notes Treatment Notes Treatment Clinical Notes March, Elevated liver function tests (ICD-10 - R79.89) LABS INDICATED ABOVE [employer] I-Shake Other Evaluation note* Diagnosis Pelvic pain in female- Primary Unspecified symptom associated with female genital organs documented [facility] encounter [facility]* Diagnosis Chronic pelvic pain in female- Primary Unspecified symptom associated with female genital organs Constipation, unspecified constipation type High-tone pelvic floor dysfunction Other specified disorders of female genital organs Diastasis of rectus abdominis Dysmenorrhea Other specified dyspareunia documented in this encounter [facility]* Diagnosis Endometriosis- Primary Endometriosis, site unspecified Pelvic and perineal pain Unspecified symptom associated with female genital organs documented in this [facility]* Diagnosis Pelvic pain in female- Primary Unspecified symptom associated with female genital organs documented in this encounter [facility]* Diagnosis Pelvic pain in female- Primary Unspecified symptom associated with female genital organs documented in [facility]* Diagnosis High-tone pelvic floor dysfunction- Primary Other specified disorders of female genital organs Chronic pelvic pain in female Unspecified symptom associated with female genital organs documented in this encounter [facility]* Diagnosis Pelvic and perineal pain Unspecified symptom associated with female genital organs documented in this encounter [facility]* Diagnosis Menorrhagia with regular cycle Pelvic pain in female Unspecified symptom associated with female genital organs Uses control [facility] Diagnosis Preeclampsia, severe, third trimester- Primary Preeclampsia, severe, third trimester [facility] Diagnosis Pre-eclampsia, severe, delivered- Primary [facility]* Diagnosis Dysmenorrhea, unspecified [facility] Diagnosis Well woman exam with routine gynecological exam Routine gynecological examination [facility]* Diagnosis Hypertension, unspecified type (CMS/HCC)- Primary Paroxysmal tachycardia, unspecified (CMS/HCC) Paroxysmal tachycardia, unspecified Chronic right shoulder pain Pain in joint, shoulder region Scapular dyskinesis Lack of coordination [facility] Diagnosis Pain in female genitalia on intercourse Dyspareunia Endometriosis Endometriosis, site unspecified [facility] noteNo assessment information availableK[facility] Work Phone: Evaluation note* Diagnosis Missed menses , unspecified gestational age Encounter for supervision of normal first in first trimester [facility]* Diagnosis Nonintractable episodic headache, unspecified headache type- Primary Second trimester ([facility]) state, incidental 13 weeks gestation of ([facility]) [facility]* Diagnosis Sinusitis, unspecified chronicity, unspecified location- Primary Second trimester ([facility]) state, incidental 17 weeks gestation of ([facility]) Screening, , for anatomic survey ([facility]) Encounter for anatomic survey [facility]* Diagnosis 20 weeks gestation of ([facility]) Second trimester ([facility]) state, incidental Diabetes mellitus screening Screening for diabetes mellitus [facility]* Diagnosis Wellness examination- Primary Hypertension, unspecified type Lipid screening Screening for lipoid disorders [facility]* Diagnosis Wellness examination- Primary Hypertension, unspecified type Lipid screening Screening for lipoid disorders 24 weeks gestation of ([facility]) Second trimester ([facility]) state, incidental Elevated glucose tolerance test Impaired glucose tolerance test documented [facility] this [facility] Narrative - Reported* Type Description Date Medical History headache Surgical History appendectomy Surgical History shoulder surgery Surgical History endometriosis I-Shake Other History of Present illness Narrative* 26 [...] engaged x 1 year * working at [employer] in [place] [address] Work Phone: Hospital course Narrative No data available for this section [facility] No data available for this section [facility]ructionsNot on filedocumented in this encounter [facility] No data available for this section [facility] for visit NarrativePT HERE AT REQUEST OF DR RODRÍGUEZ FOR EVALUATION AND TREATMENT OF ELVATED LIVER FUNCTION- ( DR. SAMUEL PT), LABS FROM DR RODRÍGUEZ REVIEWED BY DR Iraheta Vastari Other Summary Purpose Family History Unknown Family [...] Bilateral ureterolysis Surgeon: Dr. Charlene Rodriguez Resident/Fellow/Other Obiee Consultant: Glory Palacio Anesthesia: general I.V. 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 Reason for Referral Specialty Diagnoses / Procedures Referred By Mihcaela house Referred To Contact MR IMAGING Diagnoses Pelvic and perineal pain Procedures MRI FEMALE PELVIS WO/W IVCON MRI PELVIS W/O & W/CONTRAST MATERIAL Charlene Rodriguez, DO [address] [facility] [address] [place] [address] Mr Imaging Referral ID Status Reason Start Date Expiration Date Visits Requested Visits Authorized [id number] Authorized Auto-Generat ed Referral 05/17/2023 06/15/2024 1 1 Specialty Diagnoses / Procedures Referred By Michaela house Referred To Contact [facility] Diagnoses Constipation, unspecified constipation type High-tone pelvic floor dysfunction Diastasis of rectus abdominis Dysmenorrhea Other specified dyspareunia Chronic pelvic pain in female Procedures CONSULT TO PHYSICAL THERAPY PHYSICAL THERAPY EVALUATION HIGH COMPLEX 45 MINS Srinivasa Downs, HUMAN RESOURCES BENEFITS ADMINISTRATOR.PHOTOFINISHING LABORATORY WORKER [address] [facility] [place] [address] [facility] [place] [address] [place] [address] Referral ID Status Reason Start Date Expiration Date Visits Requested Visits Authorized [id number] Pending Review Auto-Generat ed Referral 05/01/2023 04/30/2024 1 1 Chief Complaint and Reason for Visit Chief Complaint Admit Date N94.10 N80.9 February 02, 2025 3:1 6pm Additional Source Comments INFORMATION SOURCE (unrecogn ized section and content) DATE CREATED AUTHOR 10/26/2020 [facility] DATE CREATED AUTHOR AUTHOR'S ORGANIZ ATION 11/06/2020 [facility] DATE CREATED AUTHOR AUTHOR'S ORGANIZ ATION 12/17/2020 [facility] DATE CREATED AUTHOR AUTHOR'S ORGANIZ ATION 04/21/2021 [facility] DATE CREATED AUTHOR AUTHOR'S ORGANIZ ATION 06/05/2021 [facility] DATE CREATED AUTHOR AUTHOR'S ORGANIZ ATION 10/02/2021 Tonya archuleta DATE CREATED AUTHOR AUTHOR'S ORGANIZ ATION 02/10/2022 [facility] DATE CREATED AUTHOR AUTHOR'S ORGANIZ ATION 12/05/2022 [facility] DATE CREATED AUTHOR AUTHOR'S ORGANIZ ATION 04/30/2024 [facility] DATE CREATED AUTHOR AUTHOR'S ORGANIZ ATION 02/09/2025 [facility] DATE CREATED AUTHOR AUTHOR'S ORGANIZ ATION 03/15/2025 [facility] DATE CREATED AUTHOR AUTHOR'S ORGANIZ ATION 08/03/2025 [facility] DATE CREATED AUTHOR AUTHOR'S ORGANIZ ATION 08/13/2025 [facility] DATE CREATED AUTHOR AUTHOR'S ORGANIZ ATION 08/14/2025 [facility] DATE CREATED AUTHOR AUTHOR'S ORGANIZ ATION 08/16/2025 [facility] DATE CREATED AUTHOR AUTHOR'S ORGANIZ ATION 08/20/2025 [facility] DATE CREATED AUTHOR AUTHOR'S ORGANIZ ATION 08/21/2025 [facility] Care Team (unrecognized sect ion and content) Hot Oiler Relationship Specialty Start Date End Date Cruz Rodríguez MD [address] [place] [address] PCP - General Family Medicine 12/03/14 Hot Oiler Relationship Specialty Start Date End Date Cruz Rodríguez MD [address] [place] [address] PCP - General Family Medicine 12/03/14 Hot Oiler Relationship Specialty Start Date End Date Cruz Rodríguez MD [address] [place] [address] PCP - General Family Medicine 12/03/14 Hot Oiler Relationship Specialty Start Date End Date Cruz Rodríguez MD [address] [place] [address] PCP - General Family Medicine 12/03/14 Hot Oiler Relationship Specialty Start Date End Date Cruz Rodríguez MD [address] [place] [address] PCP - General Family Medicine 12/03/14 Hot Oiler Relationship Specialty Start Date End Date Cruz Rodríguez MD [address] [place] [address] PCP - General Family Medicine 12/03/14 Hot Oiler Relationship Specialty Start Date End Date Cruz Rodríguez MD [address] [place] [address] PCP - General Family Medicine 12/03/14 Hot Oiler Relationship Specialty Start Date End Date Cruz Rodríguez MD [address] [place] [address] PCP - General Family Medicine 12/03/14 Hot Oiler Relationship Specialty Start Date End Date Cruz Rodríguez MD [address] [place] [address] PCP - General Family Medicine 12/03/14 Hot Oiler Relationship Specialty Start Date End Date Cruz Rodríguez MD [address] [place] [address] PCP - General Family Medicine 12/03/14 Hot Oiler Relationship Specialty Start Date End Date Cruz Rodríguez MD [address] [place] [address] PCP - [place] [employer] 09/26/21 Cruz Rodríguez MD [address] [place] [address] PCP - General Family Medicine 04/10/23 Cruz Rodríguez MD [address] [place] [address] PCP - [facility] 02/24/23 Zenobia East NP [address] [place] [address] Nurse Practitioner Family Medicine 10/05/23 Trista Thao NP [address] [place] [address] Nurse Practitioner Pulmonary Disease 10/05/23 Hot Oiler Relationship Specialty Start Date End Date Cruz Rodríguez MD [address] [place] [address] PCP - General Family Medicine 12/03/14 Hot Oiler Relationship Specialty Start Date End Date Cruz Rodríguez MD [address] [place] [address] PCP - General Family Medicine 12/03/14 Hot Oiler Relationship Specialty Start Date End Date Cruz Rodríguez MD [address] [place] [address] PCP - [place] [employer] 09/26/21 Cruz Rodríguez MD [address] [place] [address] PCP - [facility] 02/24/23 Nay Beltran DO [address] [place] [address] PCP - General Family Medicine 02/14/24 Hot Oiler Relationship Specialty Start Date End Date Cruz Rodríguez MD [address] [place] [address] PCP - [place] [employer] 09/26/21 Cruz Rodríguez MD [address] [place] [address] PCP - [facility] 02/24/23 Nay Beltran DO [address] [place] [address] PCP - General Family Medicine 02/14/24 Hot Oiler Relationship Specialty Start Date End Date Cruz Rodríguez MD [address] [place] [address] PCP - [place] [employer] 09/26/21 Cruz Rodríguez MD [address] [place] [address] PCP - [facility] 02/24/23 Nay Beltran DO [address] [place] [address] PCP - General Family Medicine 02/14/24 Hot Oiler Relationship Specialty Start Date End Date Cruz Rodríguez MD [address] [place] [address] PCP - [place] [employer] 09/26/21 Cruz Rodríguez MD [address] [place] [address] PCP - [facility] 02/24/23 Nay Beltran DO [address] [place] [address] PCP - General Family Medicine 02/14/24 Hot Oiler Relationship Specialty Start Date End Date Cruz Rodríguez MD [address] [place] [address] PCP - [place] [employer] 09/26/21 Cruz Rodríguez MD [address] [place] [address] PCP - [facility] 02/24/23 Nay Beltran DO [address] [place] [address] PCP - General Family Medicine 02/14/24 Hot Oiler Relationship Specialty Start Date End Date Cruz Rodríguez MD [address] [place] [address] PCP - [place] [employer] 09/26/21 Nay Beltran DO [address] [place] [address] PCP - General Family Medicine 02/14/24 Hot Oiler Relationship Specialty Start Date End Date Nay Beltran DO [address] [place] [address] PCP - General Family Medicine 02/14/24 Hot Oiler Relationship Specialty Start Date End Date Nay Beltran DO [address] [place] [address] PCP - General Family Medicine 02/14/24 Team Status: Active Member Role Status Dates Cruz Rodríguez MD Primary Care Provider Active Team Status: Inactive Member Role Status Dates Cruz Rodríguez MD Primary Care Provider Active S tart: February 02, 2025 End: February 02, 2025 Nathan Pop DO Attending Provider Active Start : February 02, 2025 End: February 02, 2025 Hot Oiler Relationship Specialty Start Date End Date Nay Beltran DO [address] [place] [address] PCP - General Family Medicine 02/14/24 Nay Beltran DO [address] [place] [address] PCP - [facility] 07/27/24 11/25/99 Hot Oiler Relationship Specialty Start Date End Date Nay Beltran DO [address] [place] [address] PCP - General Family Medicine 02/14/24 Nay Beltran DO [address] [place] [address] PCP - [facility] [place] [employer] 07/27/24 11/25/99 Hot Oiler Relationship Specialty Start Date End Date Nay Beltran DO [address] [place] [address] PCP - General Family Medicine 02/14/24 Nay Beltran DO [address] [place] [address] PCP - [facility] [place] [employer] 07/27/24 11/25/99 Hot Oiler Relationship Specialty Start Date End Date Nay Beltran DO [address] [place] [address] PCP - General Family Medicine 02/14/24 Nay Beltran, DO [address] [place] [address] PCP - [facility] [place] [employer] 07/27/24 11/25/99 Hot Oiler Relationship Specialty Start Date End Date Nay Beltran DO [address] [place] [address] PCP - General Family Medicine 02/14/24 Nay Beltran, DO [address] [place] [address] PCP - [facility] [place] [employer] 07/27/24 11/25/99 Hot Oiler Relationship Specialty Start Date End Date Nay Beltran, DO [address] [place] [address] PCP - General Family Medicine 02/14/24 Nay Beltran, DO [address] [place] [address] PCP - [facility] [place] [employer] 07/27/24 11/25/99 Hot Oiler Relationship Specialty Start Date End Date Nay Beltran DO [address] [place] [address] PCP - General Family Medicine 02/14/24 Nay Beltran DO [address] [place] [address] PCP - [facility] [place] [employer] 07/27/24 11/25/99 Hot Oiler Relationship Specialty Start Date End Date Nay Beltran DO [address] [place] [address] PCP - General Family Medicine 02/14/24 Nay Beltran, DO [address] [place] [address] PCP - [facility] [place] [employer] 07/27/24 11/25/99 Hot Oiler Relationship Specialty Start Date End Date Nay Beltran DO [address] [place] [address] PCP - General Family Medicine 02/14/24 Nay Beltran DO [address] [place] [address] PCP - [facility] [place] [employer] 07/27/24 11/25/99 Hot Oiler Relationship Specialty Start Date End Date Nay Beltran DO [address] [place] [address] PCP - General Family Medicine 02/14/24 Nay Beltran DO [address] [place] [address] PCP - [facility] [place] [employer] 07/27/24 11/25/99 Hot Oiler Relationship Specialty Start Date End Date Nay Beltran DO [address] [place] [address] PCP - General Family Medicine 02/14/24 Nay Beltran DO [address] [place] [address] PCP - [facility] [place] [employer] 07/27/24 11/25/99 Hot Oiler Relationship Specialty Start Date End Date Cruz Rodríguez MD [address] [place] [address] PCP - General Family Medicine 12/02/18 Hot Oiler Relationship Specialty Start Date End Date Cruz Rodríguez MD [address] [place] [address] PCP - General Family Medicine 12/02/18 Source Comments (unrecognize d section and content) In the event this informatio n is protected by the Federal Confidentiality of Alcohol and Drug Abuse Patient Records regulations: The Federal rules restrict any use of the information to criminally investigate or prosecute any alcohol or drug abuse patient.[facility] the event this information is protected by the Federal Confidentiality of Alcohol and Drug Abuse Patient Records regulations: The Federal rules restrict any use of the information to criminally investigate or prosecute any alcohol or drug abuse patient.[facility] Hospital[facility] the event this information is protected by the Federal Confidentiality of Alcohol and Drug Abuse Patient Records regulations: The Federal rules restrict any use of the information to criminally investigate or prosecute any alcohol or drug abuse patient.[facility] HospitalIn the event this information is protected by the Federal Confidentiality of Alcohol and Drug Abuse Patient Records regulations: The Federal rules restrict any use of the information to criminally investigate or prosecute any alcohol or drug abuse patient.[facility] HospitalIn the event this information is protected by the Federal Confidentiality of Alcohol and Drug Abuse Patient Records regulations: The Federal rules restrict any use of the information to criminally investigate or prosecute any alcohol or drug abuse patient.[facility] HospitalIn the event this information is protected by the Federal Confidentiality of Alcohol and Drug Abuse Patient Records regulations: The Federal rules restrict any use of the information to criminally investigate or prosecute any alcohol or drug abuse patient.[facility] HospitalIn the event this information is protected by the Federal Confidentiality of Alcohol and Drug Abuse Patient Records regulations: The Federal rules restrict any use of the information to criminally investigate or prosecute any alcohol or drug abuse patient.[facility] HospitalIn the event this information is protected by the Federal Confidentiality of Alcohol and Drug Abuse Patient Records regulations: The Federal rules restrict any use of the information to criminally investigate or prosecute any alcohol or drug abuse patient.[facility] HospitalIn the event this information is protected by the Federal Confidentiality of Alcohol and Drug Abuse Patient Records regulations: The Federal rules restrict any use of the information to criminally investigate or prosecute any alcohol or drug abuse patient.[facility] HospitalIn the event this information is protected by the Federal Confidentiality of Alcohol and Drug Abuse Patient Records regulations: The Federal rules restrict any use of the information to criminally investigate or prosecute any alcohol or drug abuse patient.[facility] HospitalIn the event this information is protected by the Federal Confidentiality of Alcohol and Drug Abuse Patient Records regulations: The Federal rules restrict any use of the information to criminally investigate or prosecute any alcohol or drug abuse patient.[facility] HospitalIn the event this information is protected by the Federal Confidentiality of Alcohol and Drug Abuse Patient Records regulations: The Federal rules restrict any use of the information to criminally investigate or prosecute any alcohol or drug abuse patient.[facility] HospitalIn the event this information is protected by the Federal Confidentiality of Alcohol and Drug Abuse Patient Records regulations: The Federal rules restrict any use of the information to criminally investigate or prosecute any alcohol or drug abuse patient.[facility] HospitalIn the event this information is protected by the Federal Confidentiality of Alcohol and Drug Abuse Patient Records regulations: The Federal rules restrict any use of the information to criminally investigate or prosecute any alcohol or drug abuse patient.[facility] HospitalIn the event this information is protected by the Federal Confidentiality of Alcohol and Drug Abuse Patient Records regulations: The Federal rules restrict any use of the information to criminally investigate or prosecute any alcohol or drug abuse patient.[facility] Reason for Visit (unrecogniz ed section and content) Reason Comments Menstrual Problem Reason Comments Vaginal Bleeding Reason Comments Endometriosis Reason Comments Insurance Authorization [place] Reason Comments Pelvic Pain Specialty Diagnoses / Procedures Referred By Contac t Referred To Contact CREATIVE PROJECT MANAGER / GYNECOLOGY Diagnoses Painful menstrual periods Painful Periods Procedures OFFICE/OUTPATIENT ESTABLISHED SF MDM 10-19 MIN EST WHI PATIENT Srinivasa Downs, HUMAN RESOURCES BENEFITS ADMINISTRATOR.PHOTOFINISHING LABORATORY WORKER [address] [place] [address] Srinivasa Downs, HUMAN RESOURCES BENEFITS ADMINISTRATOR.PHOTOFINISHING LABORATORY WORKER [address] [place] [address] Referral ID Status Reason Start Date Expiration Date V isits Requested Visits Authorized [id number] Authorized 08/20/2023 11/25/2023 1 99 Reason Comments Radiology MRI Specialty Diagnoses / Procedures Referred By Contac t Referred To Contact MR IMAGING Diagnoses Pelvic and perineal pain Procedures MRI FEMALE PELVIS WO/W IVCON MRI PELVIS W/O & W/CONTRAST MATERIAL Charlene Rodriguez, [address] [facility] [address] [place] [address] Mr Imaging [place] [address] Referral ID Status Reason Start Date Expiration Date V isits Requested Visits Authorized [id number] Closed Auto-Generate d Referral 05/17/2023 06/15/2024 1 1 Reason Onset Date Comments Refill Request 01/02/2024 Reason Comments Menorrhagia Cramping with bleedi ng Reason Comments Surgery Cancelled Specialty Diagnoses / Procedures Referred By Contac t Referred To Contact Diagnoses Preeclampsia, severe, third trimester Procedures O14.13 - Preeclampsia, severe, third trimester Ritu Ryder, [address] [place] [address] [facility] [address] [place] [address] Referral ID Status Reason Start Date Expiration Date Visits Re quested Visits Authorized [id number] 1 1 Reason Comments Blood Pressure Check Reason Comments Dysmenorrhea Reason Comments Well Women Visit Reason Comments Shoulder Pain Reason Comments Painful Sentinel Reason Comments Amenorrhea Reason Comments Routine Visit [...] every 2-3 minutes with cervical changes or [place] units (MVU) greater than 200 in a [...] BE BASED ON THE PRIMARY CLINICAL RECORDS. [employer] [facility]. provides no warranty or guarantee of the accuracy or completeness of information in this document.
== END 2025-08-27 18:27 | disposition home or self-care (01) ==
LOC: FBC 16:45
PROVIDERS: Admitting Provider Obstetrics & Gynecology; Family Provider Family Medicine; PCP Family Medicine; Visit Provider Obstetrics & Gynecology
DX: O13.2 Gestational [pregnancy-induced] hypertension without significant proteinuria, second trimester (principal); Z3A.26 26 weeks gestation of pregnancy
CPT/HCPCS: 36415; 76818; 82565; 82570; 83615; 84156; 84450; 84520; 84550; 85025; 85610; 85730; G0378; G0379

== ENCOUNTER 2025-08-29 10:32 | Outpatient (REF) | payer OTHER, SELFPAY ==
--- OUTSIDE RECORDS SUMMARY | 2025-08-24 13:30 | XMS_ITS | Encounter Summary ---
Author Organization [facility] tem Address [facility]-[id number] [address] [place] [address] Care Team Providers Care Automotive Brake Specialist Name Role Phone Cruz Rodríguez MD Primary Care Provider [phone] Reason for Visit * Reason Comments Gestational Diabetes * Consultation (Routine) - Pending Review Specialty Diagnoses / Procedures Referred By Michaela t Referred To Contact Maternal and Medicine Diagnoses Gestational diabetes mellitus (GDM) in second trimester, gestational diabetes method of control unspecified Nathan Pop, DO [address] [place] [address] [place] [address] Phone: tel: fax: Maternal- Medicine at [facility] [address] [place] [address] Phone: tel: fax: Referral ID Status Reason Start Date Expiration Date Visits Requested Visits Authorized [id number] Pending Review Specialty Services Required 08/20/2025 08/20/2026 1 1 Encounter Details Date Type Department Care Team (Late st Contact Info) Description 08/24/2025 1:30 PM EDT Support Visit Maternal- Medicine at [facility] [address] [place] [address] Teena Sarmiento RN [address] [address] Kerline Steiner, RAYNA [address], [address] [place] [address] Gestational diabetes mellitus (GDM) in second trimester, [...] 09/10/2025 9:45 AM EDT Appointment Maternal Medicine [place] [address] [address] 09/10/2025 11:00 AM EDT Telemedicine Maternal Medicine [place] [address] [address] Quynh Clements MD [address] [address] documented as of this encounter Visit Diagnoses Diagnosis Gestational diabetes mellitus (GDM) in second trimester, gestational diabetes method of control unspecified documented in this encounter Care Teams Automotive Brake Specialist Relationship Specialty Start Date End Date Cruz Rodríguez MD [address] [place] [address] PCP - General Family Medicine 12/02/18 documented as of this encounter
--- OUTSIDE RECORDS SUMMARY | 2025-08-27 15:20 | XMS_ITS | Encounter Summary ---
Author Organization [facility] Address [address] [place] [address] Care Team Providers Care Slab Tripper Name Role Phone Eliceo Beltran DO Primary Care Provider [phone] CharlottegeovaniEliceo kauffman Unavailable [phone] Reason for Visit * Reason Comments Routine Visit Encounter Details Date Type Department Care Team ([facility] [address] [facility] Contact Info) Description 08/27/2025 3:20 PM EDT Routine [facility] [address] [place] [address] Steph Keane, DEVYN [address] [place] [address] 26 weeks gestation of ([facility]); Second trimester ([facility]); induced hypertension, antepartum ([facility]); Gestational diabetes mellitus (GDM) in second trimester, gestational diabetes method of control unspecified ([facility]) Social History Tobacco Use Types Packs/Day Years [...] week 12/29/2024 How often do you attend [facility] or amish services? Patient declined 12/29/2024 Do you belong to any clubs o r organizations such as adventism groups, unions, fraternal or athletic groups, or [...] Recorded Patient Health Questionnaire-2 Score 0 07/30/2025 [facility] of Occupat ional Health - Occupational Stress [...] any time in the past [address] 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 female who presents for Routine Visit Patient presents today for Return OB appointment. MEDICATIONS Current Outpatient Medications Medication Instructions Alcohol Swabs (Alcohol Prep Pad) 70 % pads 1 Pad, Topical, Daily, Use four times daily to check FSBS. Blood Glucose Monitoring Suppl (D-Care Glucometer) w/Device kit 1 kit, Does not apply, Daily, Use four times daily to check FSBS. In the morning prior to breakfast & 1 hour after each meal for a total of 4times daily. Glucose Blood (Blood Glucose Test) strip 1 strip, In Vitro, Daily, Use in the morning prior to breakfast, 1 hour after each meal for a total of 4times daily. labetalol (NORMODYNE) 100 mg, Oral, 2 times daily Lancets Ultra Thin misc 1 each, In Vitro, Daily, Use to check FSBS four times daily metoprolol succinate XL (Toprol-XL) 25 [...] San infection Headache History of menstrual cramps ([facility]) Varicella zoster Visual impairment HISTORY PAST MEDICAL HISTORY SOCIAL HISTORY Past Medical History: Diagnosis Date Amenorrhea d/t oral contraceptive pills Endometriosis John San infection Headache History of menstrual cramps severe Hypertension ([facility]) x1 Varicella zoster unsure Visual impairment w/ [...] History: Procedure Laterality Date APPENDECTOMY 05/2016 at [facility] DILATION AND CURETTAGE 12/2022 retained placenta DISTAL CLAVICLE EXCISION Right 07/2018 Shoulder - open - DAP LAPAROSCOPY DIAGNOSTIC / BIOPSY / ASPIRATION / LYSIS 02/2019 endometriosis, 2020 LAPAROSCOPY DIAGNOSTIC / BIOPSY / ASPIRATION / LYSIS 02/29/2024 SHOULDER SURGERY Right open distal clavicle excision-DAP VAGINAL DELIVERY 11/2022 REVIEW OF SYSTEMS Review of Systems: Review of Systems Constitutional: Negative. HENT: Negative. Headache Eyes: Negative. Respiratory: Negative. Cardiovascular: Negative. Gastrointestinal: [...] nursing note reviewed. Exam conducted with a paper box maker present. Vitals: Estimated body mass index is 29.23 kg/m?? as calculated from the following: Height as of 07/30/25: 5' 2 . Weight as of this encounter: 159 lb 12.8 oz. BP: (!) 158/92 Patient's last menstrual period was 02/21/2025. ASSESSMENT & PLAN ICD-10-CM 1. 26 weeks gestation of ([facility]) Z3A.26 POCT urinalysis dipstick manually resulted 2. Second trimester ([facility]) Z34.92 Return OB: Patient presents today for a routine obstetrics appointment. Patient is currently 26w5d . Patient states she is doing well but has complaints of being tired due to current . Patient has verbalizes frequent movement. labor precautions was discussed/given and patient was instructed to perform kick counts three times a day. Patient with complaints of headache intermittently since Sunday. She was evaluated in the OB department on Sunday this week and ultimately discharged. Will obtain pre eclampsia labs and have her evaluated today at [facility]. I discussed with OB today and they are aware that patient is coming to be ev aluated. Orders Placed This Encounter Procedures POCT urinalysis dipstick manually resulted Follow Up: Patient is to return to office in 2 week for routine OB appointment. Documented by Steph Keane NP on behalf of: Steph Keane NP documented in this encounter Plan of Treatment Upcoming Encounters Date Type Department Care Team (Late st Contact Info) Description 09/03/2025 3:50 PM EDT Routine NOMShalonda YOUNGN [address] [place] [phone] Steph Keane NP [address] [place] [address] 09/07/2025 4:00 PM EDT Office Visit LANETTE MOODY [address] [place] [address] Nathan Pop DO [address] [place] [address] Scheduled Orders Name Type Priority Associated Diagnoses [...] 08/27/2026 AST Lab Routine induced hypertension, antepartum ([facility]) Expected: 08/27/2025 (Approximate), Expires: 08/27/2026 BUN Lab Routine induced hypertension, antepartum ([facility]) Expected: 08/27/2025, Expires: 08/27/2026 US biophysical profile w non stress test Imaging Routine induced hypertension, antepartum ([facility]) Gestational diabetes mellitus (GDM) in second trimester, gestational diabetes method of control unspecified ([facility]) Expected: 08/27/2025 (Approximate), Expires: 02/25/2026 documented as of this encounter Procedures Procedure Name Priority Date/Time Associated Diagnosis Comments POCT URINALYSIS DIPSTICK Routine 08/27/2025 3:53 PM EDT 26 weeks gestation of ([facility]) documented in this encounter Results [...] Urine 08/27/2025 3:53 PM EDT Steph Keane NP POINT OF CARE TEST ENTER/EDIT ORDERABLES Final Result documented in this encounter Visit Diagnoses Diagnosis 26 weeks gestation of ([facility]) Second trimester ([facility]) state, incidental induced hypertension, antepartum ([facility]) Transient hypertension of , antepartum Gestational diabetes mellitus (GDM) in second trimester, gestational diabetes method of control unspecified ([facility]) documented in this encounter Care Teams Slab Tripper Relationship Specialty Start Date End Date Eliceo Beltran DO [address] [place] [address] PCP - General Family Medicine 02/14/24 Eliceo Beltran DO [address] [place] [address] PCP - Medical [place] [employer] 07/27/24 11/25/99 documented as of this encounter
--- OUTSIDE RECORDS SUMMARY | 2025-08-29 10:35 | XMS_ITS | Encounter Summary ---
Author Organization [facility] Address [address] [place] [address] Care Team Providers Care Machine Trimmer Name Role Phone NirajEliceo kauffman Bryant DAY Primary Care Provider [phone] Eliceo Beltran DO Unavailable [phone] Encounter Details Date Type Department Care Team (Late st Contact Info) Description 08/17/2025 Telephone [facility] [place] IYERGYRonen [address] [place] [address] Nathan Pop DO [address] [place], [facility] Social History Tobacco Use Types Packs/Day Years [...] How often do you attend chur or spiritism services? Patient declined 12/29/2024 Do you belong to any clubs o r organizations such as protestant groups, unions, fraGraduway or athletic groups, or school groups? 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 PVU documented in this encounter Plan of Treatment Upcoming Encounters Date Type Department Care Team (Late st Contact Info) Description 09/03/2025 3:50 PM EDT Routine [facility] [address] [place] [address] Steph Keane, DEVYN [address] [place] [address] 09/07/2025 4:00 PM EDT Office Visit LANETTE MOODY [address] [place] [address] Nathan Pop DO [address] [place] [address] documented as of this encounter Visit Diagnoses Not on filedocumented in this encounter Care Teams Machine Trimmer Relationship Specialty Start Date End Date Eliceo Beltran DO [address] [facility] [address] [place] [address] PCP - General Family Medicine 02/14/24 Eliceo Beltran DO [address] [facility] [address] [place] [address] PCP - Medical [place] [employer] 07/27/24 11/25/99 documented as of this encounter
--- OUTSIDE RECORDS SUMMARY | 2025-08-29 10:35 | XMS_ITS | Encounter Summary ---
Author Organization [facility] Address [address] [place] [address] Care Team Providers Care Custom Bike Builder Name Role Phone Eliceo Beltran DO Primary Care Provider [phone] Eliceo Beltran DO Unavailable [phone] Encounter Details Date Type Department Care Team (Late st Contact Info) Description 08/17/2025 Abstract [facility] [place] [facility] [address] [facility] [address] [place] [phone] Eliceo Beltran DO [address] [place] [address] Social History Tobacco Use Types Packs/Day Years [...] often do you attend chur ch or nondenominational services? Patient declined 12/29/2024 Do you belong to any clubs o r organizations such as restorationism groups, unions, fraRoboEd or athletic groups, or school groups? No [...] Recorded Patient Health Questionnaire-2 Score 0 07/30/2025 [facility] of Occupat ional Health - Occupational [...] health care facility (including now)? No 09/19/2023 Housing Stability Vital [...] were you homeless or living in a [place] health care facility (including now)? 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 file Not on file documented as of this encounter Plan of Treatment Upcoming Encounters Date Type Department Care Team (Late st Contact Info) Description 09/03/2025 3:50 PM EDT Routine NOMShalonda MOODY [address] [facility] [place] [address] Steph Keane, DEVYN [address] [facility] [place] [address] 09/07/2025 4:00 PM EDT Office Visit [facility]ETTE MOODY [address] [facility] [place] [phone] Nathan Pop DO [address] [facility] [place] [address] documented as of this encounter Visit Diagnoses Not on filedocumented in this encounter Care Teams Custom Bike Builder Relationship Specialty Start Date End Date Eliceo Beltran DO [address] [facility] [address] [place] [address] PCP - General Family Medicine 02/14/24 Eliceo Beltran DO [address] [place] [address] PCP - Medical [place] [employer] 07/27/24 11/25/99 documented as of this encounter
--- OUTSIDE RECORDS SUMMARY | 2025-08-29 10:35 | XMS_ITS | Encounter Summary ---
Author Organization [facility] Address [address] [place] [address] Care Team Providers Care Vending Route Servicer Name Role Phone NirajEliceo kauffman Primary Care Provider [phone] CharlottecarolEliceo Bryant DAY Unavailable [phone] Encounter Details Date Type Department Care Team (Late st Contact Info) Description 08/20/2025 Telephone [facility] [place] [facility] [address] [place] [address] Steph Keane, DEVYN [address] [facility] [place] [address] Social History Tobacco Use Types Packs/Day [...] How often do you attend chur or gnosticist services? Patient declined 12/29/2024 Do you belong to any clubs o r organizations such as zoroastrianism groups, unions, fraternal or athletic groups, or [...] Patient Health Questionnaire-2 Score 0 07/30/2025 [facility] Health - Occupational Stress Questionnaire Answer Date [...] place to sleep or slept in a nursing home (including now)? No 09/19/2023 Housing Stability [...] were you homeless or living in a nursing home (including now)? 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 PVU documented in this encounter Plan of Treatment Upcoming Encounters Date Type Department Care Team (Late st Contact Info) Description 09/03/2025 3:50 PM EDT Routine NOMShalonda MOODY [address] [place] [address] Steph Keane, DEVYN [address] [place] [phone] 09/07/2025 4:00 PM EDT Office Visit [facility]TE MOODY [address] [place] [phone] Nathan Pop DO [address] [place], [place] [phone] documented as of this encounter Visit Diagnoses Diagnosis Gestational diabetes mellitus (GDM), antepartum, gestational diabetes method of control unspecified (HHS-HCC) Elevated glucose tolerance test Impaired glucose tolerance test documented in this encounter Care Teams Vending Route Servicer Relationship Specialty Start Date End Date Eliceo Beltran DO [address] [place] [address] PCP - General Family Medicine 02/14/24 Eliceo Beltran DO [address] [place] [address] PCP - Medical [place] [employer] 07/27/24 11/25/99 documented as of this encounter
--- OUTSIDE RECORDS SUMMARY | 2025-08-29 10:35 | XMS_ITS | Encounter Summary ---
Author Organization [facility] Address [address] [place] [address] Care Team Providers Care Patrol Captain Name Role Phone Eliceo Beltran DO Primary Care Provider [phone] Eliceo Beltran DO Unavailable [phone] Encounter Details Date Type Department Care Team (Late st Contact Info) Description 08/17/2025 Abstract [facility] [place] [facility] [address] [facility] [address] [place] [phone] Eliceo Beltran DO [address] [facility] [address] [place] [address] Social History Tobacco Use Types Packs/Day Years [...] often do you attend chur ch or christianity services? Patient declined 12/29/2024 Do you belong to any clubs o r organizations such as mandaen groups, unions, fraFileforce or athletic groups, or school groups? 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 file Not on file documented as of this encounter Plan of Treatment Upcoming Encounters Date Type Department Care Team (Late st Contact Info) Description 09/03/2025 3:50 PM EDT Routine NOMShalonda MOODY [address] [facility] [place] [address] Steph Keane, DEVYN [address] [facility] [place] [address] 09/07/2025 4:00 PM EDT Office Visit [facility]ETTE MOODY [address] [facility] [place] [address] Nathan Pop DO [address] [facility] [place] [address] documented as of this encounter Visit Diagnoses Not on filedocumented in this encounter Care Teams Patrol Captain Relationship Specialty Start Date End Date Eliceo Beltran DO [address] [facility] 230 [place] [address] PCP - General Family Medicine 02/14/24 Eliceo Beltran DO [address] [place] [address] PCP - Medical [place] [employer] 07/27/24 11/25/99 documented as of this encounter
--- OUTSIDE RECORDS SUMMARY | 2025-08-29 10:36 | XMS_ITS | Encounter Summary ---
Author Organization [facility] Address [address] [facility] [place] [address] Care Team Providers Care Internet Specialist Name Role Phone Cruz Rodríguez MD Unavailable [phone] Cruz Rodríguez MD Primary Care Provider [phone] Cruz Rodríguez MD Unavailable + [phone] [place] LEARNING SPECIALIST Unavailable Trista Thao LEARNING SPECIALIST Unavailable [phone] Eliceo Beltran DO Primary Care Provider [phone] Eliceo Beltran DO Unavailable [phone] Encounter Details Date Type Department Care Team (Late st Contact Info) Description 09/10/2023 Abstract [facility] [address] [facility] [address] [place] [phone] Roiso Booth DPM [address] [facility] [address] [place] [address] Social History Tobacco Use Types Packs/Day Years [...] 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 [...] 3:50 PM EDT Routine NOMShalonda MOODY [address] [place] [address] Steph Keane, LEARNING SPECIALIST [address] [facility] [place] [address] 09/07/2025 4:00 PM EDT Office Visit [place] MOODY [address] [place] [address] Nathan Pop DO [address] [facility] [address] [place], [place] [address] documented as of this encounter Visit Diagnoses Not on filedocumented in this encounter Care Teams Internet Specialist Relationship Specialty Start Date End Date Cruz Rodríguez MD [address] [place] [address] PCP - [place] [employer] 09/26/2111/25 Cruz Rodríguez MD [address] [place] [address] PCP - General Family Medicine 04/10/23 02/13/24 Cruz Rodríguez MD [address] [place] [address] PCP - [facility] 02/24/23 4 Eliceo Beltran DO [address] [place] [address] PCP - General Family Medicine 02/14/24 Eliceo Beltran DO [address] [place] [address] PCP - Medical [place] [employer] 07/27/24 11/25/99 [place] NP [address] [place] [address] Nurse Practitioner Family Medicine 10/05/23 04/14/24 Trista Thao, LEARNING SPECIALIST [address] [place] [address] Nurse Practitioner Pulmonary Disease 10/05/23 04/14/24 documented as of this encounter
--- OUTSIDE RECORDS SUMMARY | 2025-08-29 10:36 | XMS_ITS | Encounter Summary ---
Author Organization [facility] Address [address] [place] [address] Care Team Providers Care Studio Couch Frame Builder Name Role Phone NirajEliceo kauffman Primary Care Provider [phone] [place] Eliceo Hurtado DO Unavailable [phone] Encounter Details Date Type Department Care Team (Late st Contact Info) Description 05/11/2025 Abstract [facility] [place] [facility] [address] [place] [phone] Nathan Pop DO [address] [facility] [address] [place], [facility] Social History Tobacco Use Types [...] How often do you attend chur or tenriism services? Patient declined 12/29/2024 Do you belong to any clubs o r organizations such as mandaeism groups, unions, fraYesmywine or athletic groups, or school groups? 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 file Not on file documented as of this encounter Plan of Treatment Upcoming Encounters Date Type Department Care Team (Late st Contact Info) Description 09/03/2025 3:50 PM EDT Routine NOMShalonda MOODY [address] [place] [address] Steph Keane, DEVYN [address] [facility] [place] [address] 09/07/2025 4:00 PM EDT Office Visit LANETTE MOODY [address] [place] [address] Nathan Pop DO [address] [facility] [place] [address] documented as of this encounter Visit Diagnoses Not on filedocumented in this encounter Care Teams Studio Couch Frame Builder Relationship Specialty Start Date End Date Eliceo Beltran DO [address] [place] [address] PCP - General Family Medicine 02/14/24 Eliceo Beltran DO [address] [place] [address] PCP - Medical [place] [employer] 07/27/24 11/25/99 documented as of this encounter
--- OUTSIDE RECORDS SUMMARY | 2025-08-29 10:36 | XMS_ITS | Encounter Summary ---
Author Organization [facility] Address [address] [place] [address] Care Team Providers Care Woodworking Machine Operator Name Role Phone Eliceo Beltran DO Primary Care Provider [phone] Eliceo Beltran DO Unavailable [phone] Encounter Details Date Type Department Care [...] often do you attend chur ch or baptism services? Patient declined 12/29/2024 Do you belong to any clubs o r organizations such as mandaen groups, unions, fraternal or athletic groups, or [...] Recorded Patient Health Questionnaire-2 Score 0 07/30/2025 [facility] of Occupat ional [facility] - Occupational Stress Questionnaire Answer Date Recorded [...] any time in the past 12 m 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 file Not on file documented as of this encounter Plan of Treatment Upcoming Encounters Date Type Department Care Team (Late st Contact Info) Description 09/03/2025 3:50 PM EDT Routine [facility] [place] [facility] [address] [place] [address] Steph Keane, DEVYN [address] [place] [address] 09/07/2025 4:00 PM EDT Office Visit [facility] [place] [facility] [address] [facility] [address] Nathan Pop DO [address] [facility] [address] [place], [place] [address] documented as of this encounter Procedures Procedure Name Priority Date/Time Associated Diagnosis Comments URINE CULTURE, ROUTINE Routine 08/25/2025 8:10 AM EDT documented in this encounter Results * URINE CULTURE, ROUTINE (08/25/2025 8:10 AM EDT) URINE CULTURE, ROUTINE Urine Culture, Routine TB URINE CULTURE, ROUTINE Mixed urogenital robert TB URINE CULTURE, ROUTINE 25,000-50,000 colony forming units per mL [facility] URINE CULTURE, ROUTINE [facility]formed at[facility], ROUTINE [address] [place] [id number] [facility] URINE CULTURE, ROUTINE Web Graphic Designer: Cm Sandoval PhD, Phone: [phone] [facility] 08/25/2025 8:10 AM EDT 08/25/2025 8:30 AM EDT Narrative [facility] - 08/26/2025 10:07 PM EDT us Generic External Data Provider LAB BLOOD ORDERAB LES Final [facility] documented in this encounter Visit Diagnoses Not on filedocumented in this encounter Care Teams Woodworking Machine Operator Relationship Specialty Start Date End Date Eliceo Beltran DO [address] [place] [address] PCP - General Family Medicine 02/14/24 Eliceo Beltran DO [address] [place] [address] PCP - Medical [place] [employer] 07/27/24 11/25/99 documented as of this encounter
--- OUTSIDE RECORDS SUMMARY | 2025-08-29 10:36 | XMS_ITS | Encounter Summary ---
Author Organization [facility] Address [address] [place] [address] Care Team Providers Care Fuel Verification Technician Name Role Phone RubyEliceo Bryant DAY Primary Care Provider [phone] Ruby Eliceo Hurtado DO Unavailable [phone] Encounter Details Date Type Department Care Team (Late st Contact Info) Description 08/28/2025 Telephone [facility] [place] [facility] [address] [place] [address] Radha Rahman MA [address] [place] [address] Social History Tobacco Use Types Packs/Day Years [...] How often do you attend chur or jehovah's witness services? 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 CASINO GAMING INSPECTOR Steph sent ptover for evaluation. However, pt states she was sent home w/an elevated b/p. Pt states she woke up this morning with a horrible pounding headache. Pt was advised to go get seen at the ER and someone there will have [facility] come and get you. PVU. I did call [facility] to notify them of what was going on w/patient. Spoke w/cleveland from [facility] and nurse ANAHI. Episode of was sent over to [facility]. documented in this encounter Plan of Treatment Upcoming Encounters Date Type Department Care Team (Late st Contact Info) Description 09/03/2025 3:50 PM EDT Routine [facility] [place] [facility] [address] [facility] [address] Steph Keane, CASINO GAMING INSPECTOR [address] [facility] [place] [address] 09/07/2025 4:00 PM EDT Office Visit NOMShalonda MOODY [address] [place] [address] Nathan Pop DO [address] [facility] [address] [place], [place] [phone] documented as of this encounter Visit Diagnoses Not on filedocumented in this encounter Care Teams Fuel Verification Technician Relationship Specialty Start Date End Date Eliceo Beltran DO [address] [place] [address] PCP - General Family Medicine 02/14/24 Eliceo Beltran DO [address] [place] [address] PCP - Medical [place] [employer] 07/27/24 11/25/99 documented as of this encounter
--- OUTSIDE RECORDS SUMMARY | 2025-08-29 10:36 | XMS_ITS | Encounter Summary ---
Author Organization [facility] Address [address] [place] [place] [address] Care Team Providers Care Asbestos Wire Finisher Name Role Phone Eliceo Beltran DO Primary Care Provider [phone] Eliceo Beltran DO Unavailable [phone] Encounter Details Date Type Department Care Team (Late st Contact Info) Description 08/28/2025 Abstract [facility] [place] [facility] [address] [facility] [address] [place] [phone] Eliceo Beltran DO [address] [facility] [address] [place] [address] Social History Tobacco Use Types Packs/Day Years [...] chur ch or quaker services? Patient declined 12/29/2024 Do you belong to any clubs o r organizations such as confucianism groups, unions, fraSimply Pasta & More or athletic groups, or school groups? No [...] to sleep or slept in a senior living (including now)? No 09/19/2023 Housing Stability Vital Sign Answer Kang e Recorded In the last 12 months, was t here a time when you were not able to pay the mortgage or rent on time? No 12/29/2024 Number of Times Moved in the Last Year Not on fi le 12/29/2024 At any time in the past 12 m [facility], were you homeless or living in a senior living (including now)? 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 on file documented as of this encounter Plan of Treatment Upcoming Encounters Date Type Department Care Team (Late st Contact Info) Description 09/03/2025 3:50 PM EDT Routine NOMShalonda MOODY [address] [place] [address] Steph Keane, DEVYN [address] [facility] [place] [address] 09/07/2025 4:00 PM EDT Office Visit LANETTE MOODY [address] [place] [address] Nathan Pop DO [address] [facility] [place] [address] documented as of this encounter Visit Diagnoses Not on filedocumented in this encounter Care Teams Asbestos Wire Finisher Relationship Specialty Start Date End Date Eliceo Beltran DO [address] [facility] [address] [place] [address] PCP - General Family Medicine 02/14/24 Eliceo Beltran DO [address] [place] [address] PCP - Medical [place] [employer] 07/27/24 11/25/99 documented as of this encounter
--- OUTSIDE RECORDS SUMMARY | 2025-08-29 10:36 | XMS_ITS | Clinical Summary ---
Author Organization [facility] Address [address] [place] [address] Care Team Providers Care Finish Saw Operator Name Role Phone Eliceo Beltran DO Primary Care Provider [phone] Eliceo Beltran DO Unavailable [phone] Allergies No known active allergies Medications metoprolol succinate XL (Toprol-XL) 25 MG 24 hr tabletIndication s:Hypertension, unspecified type Take 1 tablet by mouth daily 90 tablet 1 5 Active Vit-Fe Fumarate-FA ( Vitamins) 28-0.8 MG tabletIndication s:, unspecified gestational age ([facility]),Encoun ter for supervision of normal first in first trimester ([facility]) Take 1 tablet by mouth Daily 30 tablet 11 5 05/01/20 26 Active labetalol (Normodyne) 100 MG tabletIndication s:Hypertension, unspecified type Take 1 tablet (100 mg) by mouth in the morning and 1 tablet (100 mg) before bedtime. 60 tablet 5 5 07/30/20 26 Active Lancets Ultra Thin miscIndications: Gestational diabetes mellitus (GDM), antepartum, gestational diabetes method of control unspecified ([facility]),Elevat ed glucose tolerance test 1 each by [...] 09/19/20 25 Active Blood Glucose Monitoring Suppl (Base79-SurgiLight Glucometer) w/Device kitIndications:G estational diabetes mellitus (GDM), [...] Encounters Date Type Department Care Team Description 08/28/2025 Abstract [facility] [place] [facility] [address] [place] [address] Eliceo Beltran DO 08/28/2025 Telephone [facility] [address] [place] [address] Radha Rahman MA 08/27/2025 3:20 PM EDT Routine [facility] [address] [place] [address] Steph Keane, DEVYN 26 weeks gestation of ([facility]); Second trimester ([facility]); induced hypertension, antepartum ([facility]); Gestational diabetes mellitus (GDM) in second trimester, gestational diabetes method of control unspecified ([facility]) 08/27/2025 Clinisync Result Encounter [facility] External Department Unsolicited Steph Keane NP 08/27/2025 Clinisync Result Encounter [facility]OM[facility] External Department Unsolicited Steph Keane NP 08/27/2025 Bamboo flowsheet [facility] [address] [place] [address] Steph Keane NP 08/25/2025 Clinisync Result Encounter [facility]OMS External Department Unsolicited Provider, Generic External Data 08/20/2025 Abstract [facility] [address] [place] [address] Nathan Pop DO 08/20/2025 Telephone [facility] [address] [place] [address] Steph Keane, DEVYN 08/17/2025 Abstract [facility] [address] [place] [address] Eliceo Beltran, 08/17/2025 Abstract [facility] [address] [place] [address] Eliceo Beltran, DO 08/17/2025 Telephone [facility] [address] [place] [address] [place] [address] Nathan Pop, 08/12/2025 2:40 PM EDT Routine [facility] [address] [place] [address] [place] [address] Nathan Pop, 24 weeks gestation of ([facility]); Second trimester ([facility]); Elevated glucose tolerance test 08/12/2025 2:00 PM EDT Ancillary Procedure [facility] [address] [place] [address] [place] [address] Encounter for follow-up ultrasound of anatomy ([facility]) 08/12/2025 Telephone [facility] [address] [place] [address] Bill Gould LPN Results 08/12/2025 Abstract [facility] [address] [place] [address] Eliceo Beltran, 08/04/2025 [facility] [address] [place] [address] Bill Gould LPN Results 07/30/2025 3:40 PM EDT [facility] [address] [place] [address] Eliceo Beltran, DO Wellness examination (Primary Dx); Hypertension, unspecified type ; Lipid screening 07/30/2025 Bamboo flowsheet [facility] [place] [facility] [address] [place] [phone] Eliceo Beltran, DO 07/30/2025 Travel 07/21/2025 Telephone [facility] [address] [place] [address] Nathan Pop, DO 07/15/2025 3:30 PM EDT Routine [facility] [address] [place] [address] Nathan Pop, DO 20 weeks gestation of ([facility]); Second trimester ([facility]); Diabetes mellitus screening 07/15/2025 2:30 PM EDT Ancillary Procedure [facility] [address] [place] [address] Screening, , for anatomic survey ([facility]) 07/15/2025 Clinisync Result Encounter [facility]OM[facility] External Department Unsolicited Nathan Pop, DO 06/25/2025 Telephone [facility] [address] [place] [address] Nathan Pop, DO 06/22/2025 2:10 PM EDT Routine [facility] [address] [place] [address] Nathan Pop, Sinusitis, unspecified chronicity, unspecified location (Primary Dx); Second trimester ([facility]); 17 weeks gestation of ([facility]); Screening, , for anatomic survey ([facility]) 06/22/2025 External Result Encounter [facility]OM[facility] External Department Unsolicited Nathan Pop, DO 06/22/2025 Bamboo flowsheet [facility] [address] [place] [address] Nathan Pop, DO 06/15/2025 Travel 06/09/2025 Telephone [facility] [address] [place] [address] [place] [address] Hina Go LPN from Last 3 Months [...] Recorded Patient Health Questionnaire-2 Score 0 07/30/2025 [facility] - Occupational [...] any time in the past 12 m [facility], were you homeless or living [...] 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 Not on file Not [...] 3:50 PM EDT Routine [facility] [address] [place] [phone] Steph Keane, PULP AND PAPER TESTER [address] [place] [phone] 09/07/2025 4:00 PM EDT Office Visit [facility] [address] [place] [address] Nathan Pop DO [address] [place], [place] [id number] Health Maintenance Due Date Last Done Comments Influenza Vaccine (#1) 2025 09/11/2014 Pap Smear 08/18/2027 08/18/2024, 07/28, 06/20/2022, Additional history exists Cervical Cancer Screening 09/03/2028 HPV/Cotest 09/03/2028 09/03/2023 Procedures Procedure Name Priority Date/Time Associated Diagnosis Comments US OB BPP W NON-STRESS 08/27/2025 6:02 PM EDT TBH URINE T PROTEIN CREAT RATIO Routine 08/27/2025 5:50 PM EDT [facility] APTT Routine 08/27/2025 5:00 PM EDT SRMCOH PROTHROMBIN TIME INR W/O COUM Routine 08/27/2025 5:00 PM EDT ALL LDH Routine 08/27/2025 5:00 PM EDT CCF AST Routine 08/27/2025 5:00 PM EDT ALL URIC ACID Routine 08/27/2025 5:00 PM EDT TBH CREATININE Routine 08/27/2025 5:00 PM EDT ALL BUN Routine 08/27/2025 5:00 PM EDT ALL CBC WITH AUTO DIFF Routine 08/27/2025 5:00 PM EDT POCT URINALYSIS DIPSTICK Routine 08/27/2025 3:53 PM EDT 26 weeks gestation of ([facility]) URINE CULTURE, ROUTINE Routine 08/25/2025 8:10 AM EDT POCT URINALYSIS DIPSTICK Routine 08/12/2025 2:39 PM EDT 24 weeks gestation of ([facility]) Second trimester ([facility]) US OB LIMITED 1+ FETUSES Routine 08/12/2025 2:22 PM EDT Encounter for follow-up ultrasound of anatomy ([facility]) AFP, SERUM, OPEN SPINA BIFIDA Routine 07/15/2025 5:07 PM EDT POCT URINALYSIS DIPSTICK Routine 07/15/2025 3:50 PM EDT 20 weeks gestation of ([facility]) Second trimester ([facility]) US OB 14+ WEEKS ANATOMY SCAN Routine 07/15/2025 3:26 PM EDT Screening, , for anatomic survey ([facility]) RECURRENT VAGINITIS (HTRX) Routine 06/22/2025 4:25 PM EDT POCT URINALYSIS DIPSTICK Routine 06/22/2025 2:39 PM EDT Second trimester ([facility]) 17 weeks gestation of ([facility]) PAP SMEAR Routine 08/18/2024 12:00 AM EDT THINPREP PAP AND HPV MRNA E6/E7 W/RFL HPV 16,18/45 Routine 09/03/2023 4:00 PM EDT Well woman exam with routine gynecological exam from Last 3 Months or Most Recently Relevant to Health Maintenance Results * US OB BPP W NON-STRESS (08/27/2025 6:02 PM EDT) Anatomical Region Laterality Modality Other 08/27/2025 6:02 PM EDT Narrative 08/27/2025 6:05 [place] [address] Ultrasound Report Signed Patient: DRISS GAMA MR#: [id number] : 1995 Acct:[id number] Age/Sex: 30 / F ADM Date: Loc: [facility] 250- Attending Dr: KUNAL HYATT M.D. Ordering Physician: Steph Keane Date of Service: 08/27/25 Procedure(s): US OB BPP w non-stress Accession Number(s): [id number] cc: Steph Keane; Yomaira BELTRAN [place] [id number] Patient Name: DRISS GAMA MRN: [id number] date: 1995 Sex: F Assigned Patient Location: LAB Current Patient Location: LAB Accession/Order Number: [id number] Exam Date: 08/27/2025 17:37 Report Date: 08/27/2025 18:02 At the request of: STEPH KEANE Procedure: US OB BPP w non-stress Ultrasound biophysical profile HISTORY: Increased blood pressure Adequate breathing movement, gross body movement, tone and amniotic fluid volume for total score of 8 out of 8. The amniotic fluid index is 11.7cm within normal limits. The heart rate 131 bpm. US/US OB BPP w non-stress IMPRESSION: Adequate ultrasound biophysical profile Impression dictated by: Jp Morillo M.D. 08/27/2025 6:02 PM Dictation Location: [place] [address] Electronically authenticated by: [id number] Y Date: 08/27/2025 18:02 Dictated By: Jp Morillo D.O. Signed By: 08/27/251804 DD/ 01 TD/TT: Associate Professor Of Philosophy: Procedure Note Radiology, Radiologist, - 08/27/2025 [place] [address] Ultrasound Report Signed Patient: DRISS GAMA MMR#: [id number] : 1995Acct:[id number] Age/Sex: FADM Date: Loc: [facility] [address]: KUNAL HYATT M.D. Ordering Physician: Steph Keane Date of Service: 08/27/25 Procedure(s): US OB BPP w non-stress Accession Number(s): [id number] cc: Steph Keane; Yomaira BELTRAN [place] [address] Patient Name: DRISS GAMA MRN: [id number] date: 1995 Sex: F Assigned Patient Location: LAB Current Patient Location: LAB Accession/Order Number: [id number] Exam Date: 08/27/2025 17:37 Report Date: 08/27/2025 18:02 At the request of: STEPH KEANE Procedure: US OB BPP w non-stress Ultrasound biophysical profile HISTORY: Increased blood pressure Adequate breathing movement, gross body movement, tone and amniotic fluid volume for total score of 8 out of 8. The amniotic fluidindex is 11.7cm within normal limits. The heart rate 131 bpm. US/US OB BPP w non-stress IMPRESSION: Adequate ultrasound biophysical profile Impression dictated by: Jp Morillo M.D. 08/27/2025 6:02 PM Dictation Location: [place] [address] Electronically authenticated by: [id number] Y Date: 8:02 Dictated By: Jp Morillo D.O. Signed By:08/27/251804 DD/ 01 TD/TT: Associate Professor Of Philosophy: us Steph Keane NP [facility]AG[facility] Final Resul t * (ABNORMAL) TBH URINE T PROTEIN CREAT RATIO (08/27/2025 5:50 PM EDT) TOTAL PROTEIN URINE RANDOM <6.0 <=11.9 mg/dL TBH CREATININE URINE RANDOM <13.00(L) 20.00 - 300.00 mg/dL TBH 08/27/2025 5:50 PM EDT 08/27/2025 5:58 PM EDT Narrative CLINISYNC - 08/27/2025 6:10 PM EDT us Steph Keane NP CLINISYTERRY Final Result Performing Organization Address [facility] de Phone Number CLIN[facility]YNC TBH * (ABNORMAL) TBH CREATININE (08/27/2025 5:00 PM EDT) CREATININE 0.45(L) 0.55 - 1.02 mg/dL TBH TBH EGFR-AF [place] >60 >=60 mL/min/1.7 3m 2 TBH TBH EGFR-NON AF [place] >60 >=60 mL/min/1.7 3m 2 TBH 08/27/2025 5:00 PM EDT 08/27/2025 5:01 PM EDT Narrative CLINISYNC - 08/27/2025 5:19 PM EDT us Steph Keane NP CLINISYNC Final Result [facility] * SRMCOH PROTHROMBIN TIME INR W/O COUM (08/27/2025 5:00 PM EDT) PROTHROMBIN TIME 9.7 9.0 - 11.6 sec TB TBH INR <0.93 TBH Comment: DESIRED INR: 2.0-3.0 CONDITIONS NOT LISTED BELOW 2.5-3.5 FOR PROSTHETIC HEART VALVE REPLACEMENT 2.5-3.5 RECURRENT THROMBOSIS 08/27/2025 5:00 PM EDT 08/27/2025 5:01 PM EDT Narrative CLINISYNC - 08/27/2025 5:21 PM EDT us Steph Keane NP CLINISYNC Final Result Performing Organization Address [facility] Co de Phone Number [facility] * [facility] AST (08/27/2025 5:00 PM EDT) ASPARTATE AMINO TRANSFERASE 21 15 - 37 U/L TB 08/27/2025 5:00 PM EDT 08/27/2025 5:01 PM EDT Narrative CLINISYNC - 08/27/2025 5:19 PM EDT us Steph Keane NP CLINISYNC Final Result Performing Organization Address [facility] de Phone Number [facility] * [facility] APTT (08/27/2025 5:00 PM EDT) PARTIAL THROMBOPLASTIN TIME 25.6 22.3 - 36.2 sec TB 08/27/2025 5:00 PM EDT 08/27/2025 5:01 PM EDT Narrative CLINISYNC - 08/27/2025 5:21 PM EDT us Steph Keane NP CLINISYNC Final Result Performing Organization Address [facility]/ZIP Co de Phone Number [facility] * ALL URIC ACID (08/27/2025 5:00 PM EDT) URIC ACID 3.3 2.6 - 6.0 mg/dL TB 08/27/2025 5:00 PM EDT 08/27/2025 5:01 PM EDT Narrative CLINISYNC - 08/27/2025 5:19 PM EDT Steph Keane NP CLINISYNC Final Result Performing Organization Address City/[facility]/ZIP Co de Phone Number CLINISYNC TB * ALL LDH (08/27/2025 5:00 PM EDT) Pathologist [facility] LACTATE DEHYDROGENASE 151 81 - 234 U/L TB 08/27/2025 5:00 PM EDT 08/27/2025 5:01 PM EDT Narrative CLINISYNC - 08/27/2025 5:19 PM EDT Steph Keane NP CLINISYNC Final Result Performing Organization Address [facility] de Phone Number CL[facility]YNC [facility] * (ABNORMAL) ALL CBC WITH AUTO DIFF (08/27/2025 5:00 PM EDT) Pathologist [facility] TB WBC 13.3(H) 4.0 - 11.0 10 3/uL TBH TB RBC 3.85(L) 4.20 - 5.40 10 6/uL TBH TB HGB 11.3(L) 12.0 - 16.0 g/dL TB TB HCT 34.4(L) 36.0 - 48.0 % TBH TB MCV 89.4 81.0 - 99.0 fL TB TBH MCH 29.4 26.7 - 34.0 pg TBH TBH MCHC 32.8 29.9 - 35.2 g/dL TB TBH RDW 13.0 11.0 - 15.0 % TBH TBH PLT 270 150 - 450 10 3/uL TBH TBH MPV 9.6 9.5 - 13.5 fL TBH NEUTROPHILS PERCENT AUTO 67.8 43.0 - 75.0 % TBH LYMPHOCYTES PERCENT AUTO 17.8(L) 20.5 - 60.0 % TBH MONOCYTES PERCENT AUTO 8.1 1.7 - 12.0 % TBH TBH EO % 1.4 0.9 - 7.0 % TBH BASOPHILS PERCENT AUTO 0.5 0.2 - 2.0 % TBH IMMATURE GRANULOCYTES PCT AUTO 4.4(H) 0.0 - 0.5 % TBH NEUTROPHILS ABSOLUTE AUTO 9.0(H) 1.4 - 6.5 10 3/uL TBH LYMPHOCYTES ABSOLUTE AUTO 2.4 1.2 - 3.8 10 3/uL TBH MONOCYTES ABSOLUTE AUTO 1.1(H) 0.3 - 0.8 10 3/uL TBH TBH EO # 0.2 0.0 - 0.7 10 3/uL TBH BASOPHILS ABSOLUTE AUTO 0.1 0.0 - 0.1 10 3/uL TBH IMMATURE GRANULOCYTES ABS AUTO 0.59(H) 0.00 - 0.03 10 3/uL TBH 08/27/2025 5:00 PM EDT 08/27/2025 5:01 PM EDT Narrative CLINISYNC - 08/27/2025 5:08 PM EDT Generic External Data Provider CLINISYNC F inal Result Performing Organization Address City/[facility] Co de Phone Number CLINISYNC [facility] * ALL BUN (08/27/2025 5:00 PM EDT) BLOOD UREA NITROGEN 9.0 7.0 - 18.0 mg/dL TB 08/27/2025 5:00 PM EDT 08/27/2025 5:01 PM EDT Narrative CLINISYNC - 08/27/2025 5:19 PM EDT Steph Keane NP CLINISYNC Final Result Performing Organization Address City/[facility] Co de Phone Number CLINISYNC [facility] * POCT urinalysis dipstick manually resulted (08/27/2025 [...] Negative - 1999(20) ++++ mg/dL Urobilinogen, UA 2.0 0.2 - 12 mg/dL Leukocytes, UA Negative Negative - 500+++ Robinson/mcL Nitrite, UA Negative Negative - Positive Urine 08/27/2025 3:53 PM EDT Steph Keane NP POINT OF CARE TEST ENTER/EDIT ORDERABLES Final Result * URINE CULTURE, ROUTINE (08/25/2025 8:10 AM EDT) Pathologist [facility] URINE CULTURE, ROUTINE Urine Culture, Routine [facility] URINE CULTURE, ROUTINE Mixed urogenital robert [facility] URINE CULTURE, ROUTINE 25,000-50,000 colony forming units per mL [facility] URINE CULTURE, ROUTINE Performed at: - [facility] URINE CULTURE, ROUTINE [address] [place] [phone] [facility] URINE CULTURE, ROUTINE Manager Ambulatory: Cm Sandoval PhD, Phone: [phone] [facility] 08/25/2025 8:10 AM EDT 08/25/2025 8:30 AM EDT Narrative CLINISYNC - 08/26/2025 10:07 PM EDT us Generic External Data Provider LAB BLOOD ORDERAB LES Final Result [facility]ISYNC [facility] * US OB limited 1+ fetuses [...] (07/15/2025 5:07 PM EDT) RESULTS Report . [facility] TEST RESULTS: *Screen Negative* . [facility] GEST. AGE ON COLLECTION DATE 20.6 . weeks [facility] GESTAT. AGE BASED ON LMP . [facility] Comment: Recalculations are not recommended when gestational dating by LMP and ultrasound are within 10 days. [age] [facility] RACE . [facility] WEIGHT 146 . lbs [facility] INSULIN DEP DIABETES No . [facility] MULTIPLE GESTATION No . H AFP VALUE 59.2 . ng/mL [facility] AFP MOM 0.95 . [facility] [place] [address] [place] [id number] . [facility] INTERPRETATION Comment . [facility] Comment: Interpretation: Screen Negative This result [...] Customer Services to discuss available options. The [place] [employer] recommends amniocentesis be offered to women age 35 and older. COMMENT: Comment . [facility] Comment: Amy Ramos, Ph.D., [facility] Director References: Available Upon Request. Multiples Of Median Cutoffs For AFP Elevations Hsieh 2.5 Black 2.8 IDD 2.0 Twins 4.5 Abbreviation Definitions IDD - Insulin Dep Diabetes OSBR - Open Spina Bifida Risk For further inquiries contact [employer] at [phone]. This test was developed and its performance characteristics determined by [employer] It has not been cleared or approved by the Food and Drug Administration. Performed at: [facility] [place], [place] [id number] Manager Ambulatory: Dona Justin [facility], Phone: [phone] 07/15/2025 5:07 PM EDT 07/15/2025 5:10 PM EDT Narrative JENNIFER - 07/18/2025 1:07 AM EDT N N LMP [id number] 2 17 N 1 Y 146 N N N N N White/ us Generic External Data Provider LAB BLOOD ORDERAB LES Final Result [facility] * US OB 14+ weeks anatomy scan [...] II, MD, PHD at 16-Jul-2025 08:07:07 AM [facility] Procedure Note Travis Rueda MD - [...] TRAVIS RUEDA II, MD, PHD 08:07:07 AM [facility] us Nathan Kiesha DO IMG OB US PROCEDURES Final Resul t * (ABNORMAL) RECURRENT VAGINITIS (HTRX) (06/22/2025 4:25 PM EDT) ATOPOBIUM VAGINAE 0 19.961 - 24.689 ppm 06/24/2025 6:19 AM EDT [facility] ATOPOBIUM VAGINAE Not Detected 19.961 - 24.689 ppm 06/24/2025 6:19 AM EDT [facility] BVAB 2,3 (BACTERIAL VAGINOSIS ASSOCIATED BACTERIA 2, 3); MOBILUNCUS SPP 0 19.961 - 24.689 ppm 06/24/2025 6:19 AM EDT [facility] BVAB 2,3 (BACTERIAL VAGINOSIS ASSOCIATED BACTERIA 2, 3); MOBILUNCUS SPP Not Detected 19.961 - 24.689 ppm 06/24/2025 6:19 AM EDT [facility] RADHA ALBICANS, PARAPSILOSIS, TROPICALIS 0 23.000 - 30.347 ppm 06/24/2025 6:19 AM EDT [facility] RADHA ALBICANS, PARAPSILOSIS, TROPICALIS Not Detected 23.000 - 30.347 ppm 06/24/2025 6:19 AM EDT [facility] RADHA GLABRATA 0 23.000 - 31.618 ppm 06/24/2025 6:19 AM EDT [facility] RADHA GLABRATA Not Detected 23.000 - 31.618 ppm 06/24/2025 6:19 AM EDT [facility] RADHA KRUSEI 0 23.000 - 30.873 ppm 06/24/2025 6:19 AM EDT [facility] RADHA KRUSEI Not Detected 23.000 - 30.873 ppm 06/24/2025 6:19 AM EDT [facility] CHLAMYDIA TRACHOMATIS 0 23.000 - 31.586 ppm 06/24/2025 6:19 AM EDT [facility] CHLAMYDIA TRACHOMATIS Not Detected 23.000 - 31.586 ppm 06/24/2025 6:19 AM EDT [facility] GARDNERELLA VAGINALIS 17.967(A) 19.961 - 24.689 ppm 06/24/2025 6:38 AM EDT [facility] GARDNERELLA VAGINALIS Detected(A) 19.961 - 24.689 ppm 06/24/2025 6:38 AM EDT [facility] MEGASPHAERA (TYPES 1, 2) 0 19.961 - 24.689 ppm 06/24/2025 6:19 AM EDT [facility] MEGASPHAERA (TYPES 1, 2) Not Detected 19.961 - 24.689 ppm 06/24/2025 6:19 AM EDT [facility] NEISSERIA GONORRHOEAE 0 23.000 - 32.587 [...] Final Resul t [facility] [address] [place] [address] * Pap Smear (08/18/2024 12:00 AM EDT) Swab Cervical swab / Unknown Kiesha Nurse [facility] Ob LAB CYTOLOGY ORDERABLES Final Result EXTERNAL LAB * THINPREP PAP AND HPV MRNA E6/E7 W/RFL HPV 16,18/45 (09/03/2023 4:00 PM EDT) us Zenobia [facility] LAB BLOOD ORDERABLES Final Resul t EXTERNAL LAB from Last 3 Months or Most Recently Relevant to Health Maintenance Insurance [employer] Care Teams Finish Saw Operator Relationship Specialty Start Date End Date Eliceo Beltran DO [address] [place] [address] PCP - General Family Medicine 02/14/24 Eliceo Beltran DO [address] [place] [address] PCP - Medical [place] [employer] 07/27/24 11/25/99
--- OUTSIDE RECORDS SUMMARY | 2025-08-29 10:36 | XMS_ITS | Encounter Summary ---
Author Organization [facility] Address [address] [facility] [place] [address] Care Team Providers Care Roll Changer Name Role Phone Cruz Rodríguez MD Unavailable + [phone] Cruz Rodríguez MD Primary Care Provider + [phone] Cruz Rodríguez MD Unavailable + 54 [place] MARINA MANAGER Unavailable Trista Thao MARINA MANAGER Unavailable [phone] Eliceo Beltran DO Primary Care Provider [phone] Eliceo Beltran DO Unavailable [phone] Encounter Details Date Type Department Care Team (Late st Contact Info) Description 02/13/2024 Clinisync Result Encounter NOMS External Department Unsolicited Jony Pop DO [address] [facility] [address] [place] [address] Social History Tobacco Use Types Packs/Day Years [...] week 09/19/2023 How often do you attend [facility] or anabaptism services? Patient declined 09/19/2023 Do [...] Recorded Patient Health Questionnaire-2 Score 0 10/23/2023 [facility] [place] of Occupat ional Health - Occupational Stress [...] a nursing home (including now)? 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 Not on file Not on file documented as of this encounter Plan of Treatment Upcoming Encounters Date Type Department Care Team (Late st Contact Info) Description 09/03/2025 3:50 PM EDT Routine LANETTE MOODY [address] [facility] [place] [address] Steph Keane, DEVYN [address] [facility] [place] [address] 09/07/2025 4:00 PM EDT Office Visit LANETTE MOODY [address] [facility] [place] [address] Jony Pop DO [address] [facility] [place] [address] documented as of this encounter Procedures Procedure Name Priority Date/Time Associated Diagnosis Comments ECG 12-LEAD 02/13/2024 2:55 PM EDT documented in this encounter Results * ECG 12-LEAD (02/13/2024 2:55 PM EDT) Anatomical Region Laterality Modality Other 02/13/2024 2:5 5 PM EDT Narrative 02/14/2024 6:50 [place] [address] Electrocardiograph Report Signed Patient: DRISS COPE MR#: [id number] : 1995 Acct:[id number] Age/Sex: 28 / F ADM Date: 02/13/24 Loc: [facility] Attending Dr: Jony Pop D.O. Ordering Physician: Jony Pop D.O. 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 Signed By: 02/14/24 0650 DD/ 1455 TD/TT: Energy Conservation Director: Procedure Note Radiology, Radiologist, - 02/14/[address] [address] Electrocardiograph Report Signed Patient: DRISS COPE MMR#: [id number] : 1995Acct:[id number] Age/Sex: 28 / FADM Date: 02/13/24 Loc: PST Attending Dr: Jony Pop D.O. Ordering Physician: Jony Pop D.O. 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 Signed By:02/14/24 0650 DD/ 1455 TD/TT: Energy Conservation Director: us Jony Pop DO [facility] Final Result documented in this encounter Visit Diagnoses Not on filedocumented in this encounter Care Teams Roll Changer Relationship Specialty Start Date End Date Cruz Rodríguez MD [address] [place] [address] PCP - [place] [employer] 09/26/2111/25 Cruz Rodríguez MD [address] [place] [address] PCP - General Family Medicine 04/10/23 02/13/24 Cruz Rodríguez MD [address] [place] [address] PCP - [facility] 02/24/23 4 Eliceo Beltran DO [address] [place] [address] PCP - General Family Medicine 02/14/24 Eliceo Beltran DO [address] [facility] [address] [place] [address] PCP - Medical [place] [employer] 07/27/24 11/25/99 [place] NP [address] [place] [address] Nurse Practitioner Family Medicine 10/05/23 04/14/24 Trista Thao NP [address] [place] [address] Nurse Practitioner Pulmonary Disease 10/05/23 04/14/24 documented as of this encounter
--- OUTSIDE RECORDS SUMMARY | 2025-08-29 10:36 | XMS_ITS | Encounter Summary ---
Author Organization [facility] Address [address] [place] [address] Care Team Providers Care Equipment Oiler Name Role Phone Eliceo Beltran Primary Care Provider CharlottecarolEliceo Unavailable [phone] Encounter Details Date Type Department Care Team (Late st Contact Info) Description 08/27/2025 Bamboo flowsheet [facility] Patti OBGYN [address] [facility] [place] [address] Steph Keane, RUBBER INSULATOR [address] [facility] [place] [address] Social History Tobacco Use Types Packs/Day [...] any clubs o r organizations such as synagogue groups, unions, fraternal or athletic groups, or [...] Recorded Patient Health Questionnaire-2 Score 0 07/30/2025 [facility] [place] of Occupat ional Health - Occupational Stress [...] any time in the past 12 m [facility], were you homeless or living in [...] 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 on file Not on file documented as of this encounter Plan of Treatment Upcoming Encounters Date Type Department Care Team (Eliezer yo Contact Info) Description 09/03/2025 3:50 PM EDT Routine NOMShalonda MOODY [address] [facility] [place] [address] Steph Keane, DEVYN [address] [facility] [place] [address] 09/07/2025 4:00 PM EDT Office Visit LANETTE MOODY [address] [facility] [place] [address] Nathan Pop DO [address] [facility] [address] [facility] [address] [place], [place] [address] documented as of this encounter Visit Diagnoses Not on filedocumented in this encounter Care Teams Equipment Oiler Relationship Specialty Start Date End Date Eliceo Beltran DO [address] [place] [address] PCP - General Family Medicine 02/14/24 Eliceo Beltran DO [address] [place] [address] PCP - Medical [place] [employer] 07/27/24 11/25/99 documented as of this encounter
--- OUTSIDE RECORDS SUMMARY | 2025-08-29 10:36 | XMS_ITS | Encounter Summary ---
Author Organization [facility] Address [address] [facility] [place] [address] Care Team Providers Care Machine Slat Basket Maker Name Role Phone Eliceo Beltran DO Primary Care Provider [phone] Eliceo Beltran DO Unavailable [phone] Encounter Details Date Type Department Care Team (Late st Contact Info) Description 08/12/2025 Abstract [facility] [place] [facility] [address] [facility] [address] [place] [phone] Eliceo Beltran DO [address] [facility] [address] [place] [address] Social History Tobacco Use Types Packs/Day Years [...] often do you attend chur ch or yazdanism services? Patient declined 12/29/2024 Do you belong to any clubs o r organizations such as zoroastrianism groups, unions, fraPinoccio or athletic groups, or school groups? 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 file Not on file documented as of this encounter Plan of Treatment Upcoming Encounters Date Type Department Care Team (Late st Contact Info) Description 09/03/2025 3:50 PM EDT Routine NOMShalonda MOODY [address] [place] [address] Steph Keane, DEVYN [address] [facility] [place] [address] 09/07/2025 4:00 PM EDT Office Visit LANETTE MOODY [address] [place] [address] Nathan Ppo DO [address] [facility] [place] [address] documented as of this encounter Visit Diagnoses Not on filedocumented in this encounter Care Teams Machine Slat Basket Maker Relationship Specialty Start Date End Date Eliceo Beltran DO [address] [facility] 230 [place] [address] PCP - General Family Medicine 02/14/24 Eliceo Beltran DO [address] [place] [address] PCP - Medical [place] [employer] 07/27/24 11/25/99 documented as of this encounter
--- OUTSIDE RECORDS SUMMARY | 2025-08-29 10:36 | XMS_ITS | Encounter Summary ---
Author Organization [employer] Address [id number] [address] [place] [address] Care Team Providers Care Paper Conservator Name Role Phone Cruz Rodríguez MD Primary Care Provider [phone] Encounter Details Date Type Department Care Team (Late st Contact Info) Description 08/25/2020 Telephone [facility] Pul[facility]Sleep Medicine [address] [phone] Christen Maxwell RN Social History Tobacco Use [...] 09/10/2025 9:45 AM EDT Appointment Maternal Medicine [place] [address] [address] 09/10/2025 11:00 AM EDT Telemedicine Maternal Medicine [place] [address] [address] Quynh Clements MD [address] [address] documented as of this encounter Visit Diagnoses Not on filedocumented in this encounter Care Teams Paper Conservator Relationship Specialty Start Date End Date Cruz Rodríguez MD [address] [place] [address] PCP - General Family Medicine 12/02/18 documented as of this encounter
--- OUTSIDE RECORDS SUMMARY | 2025-08-29 10:36 | XMS_ITS | Encounter Summary ---
Author Organization [facility] Address [address] [place] [facility] [place] [address] Care Team Providers Care Hydraulic Strainer Operator Name Role Phone Cruz Rodríguez MD Unavailable + [phone] Cruz Rodríguez MD Primary Care Provider + [phone] Cruz Rodríguez MD Unavailable + 54 [place] SAND DIGGER Unavailable Trista Thao SAND DIGGER Unavailable [phone] Eliceo Beltran DO Primary Care Provider [phone] Eliceo Beltran DO Unavailable [phone] Encounter Details Date Type Department Care Team (Late st Contact Info) Description 01/15/2024 Clinisync Result Encounter NOMS External Department Unsolicited Jony Pop DO [address] [facility] [place] [address] Social History Tobacco Use Types Packs/Day Years [...] week 09/19/2023 How often do you attend [facility] or buddhist services? 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 Not on file documented as of this encounter Plan of Treatment Upcoming Encounters Date Type Department Care Team (Late st Contact Info) Description 09/03/2025 3:50 PM EDT Routine LANETTE MOODY [address] [facility] [place] [address] Steph Keane, DEVYN [address] [facility] [place] [address] 09/07/2025 4:00 PM EDT Office Visit LANETTE MOODY [address] [facility] [place] [address] Jony Pop DO [address] [facility] [place] [address] [phone] (work) documented as of this encounter Procedures Procedure Name Priority Date/Time Associated Diagnosis Comments US PELVIS W/ TRANSVAGINAL 01/15/2024 11:42 AM EST documented in this encounter Results * US PELVIS W/ TRANSVAGINAL (01/15/2024 11:42 AM EST) Anatomical Region Laterality Modality Other 01/15/2024 11:4 2 AM EST Narrative 01/15/2024 11:44 AM EST [place] [id number] Ultrasound Report Signed Patient: DRISS COPE MR#: [id number] : 1995 Acct:[id number] Age/Sex: 28 / F ADM Date: 01/15/24 Loc: N[facility] Attending Dr: Jony Pop D.O. Ordering Physician: Jony Pop D.O. Date of Service: 01/15/24 Procedure(s): US pelvis w/ transvaginal Accession Number(s): [id number] cc: Jony Pop D.O.; Physician,Non-Staff Katherine [address] [address] Patient Name: DRISS COPE MRN: [id number] date: 1995 Sex: F Assigned Patient Location: [facility] Current Patient Location: [facility] Accession/Order Number: [id number] Exam Date: 01/15/2024 07:57 Report Date: 01/15/2024 [...] Signed By: 01/15/24 1144 DD/ 1142 TD/TT: Sausage Linker: Procedure Note Radiology, Radiologist, MD - 01/15/2024 [place] [address] Ultrasound Report Signed Patient: DRISS COPE MMR#: [id number] : 1995Acct:[id number] Age/Sex: 28 / FADM Date: 01/15/24 Loc: [facility] Attending Dr: Jony Pop D.O. Ordering Physician: Jony Pop D.O. Date of Service: 01/15/24 Procedure(s): US pelvis w/ transvaginal Accession Number(s): [id number] cc: Jony Pop D.O.; Physician,Non-Staff M.Mark Anthony The [place] [id number] Patient Name: DRISS COPE MRN: [id number] date: 1995 Sex: F Assigned Patient Location: [facility] Current Patient Location: [facility] Accession/Order Number: [id number] Exam Date: 01/15/2024 07:57 Report Date: 01/15/2024 [...] M.D. Signed By:01/15/24 1144 DD/ 1142 TD/TT: Sausage Linker: us Jony Kiesha DO [facility] Final Result documented in this encounter Visit Diagnoses Not on filedocumented in this encounter Care Teams Hydraulic Strainer Operator Relationship Specialty Start Date End Date Cruz Rodríguez MD [address] [place] [address] PCP - [facility] 09/26/2111/25 Cruz Rodríguez MD [address] [place] [address] PCP - General Family Medicine 04/10/23 02/13/24 Cruz Rodríguez MD [address] [place] [address] PCP - [facility] 02/24/23 4 Eliceo Beltran DO [address] [place] [address] PCP - General Family Medicine 02/14/24 Eliceo Beltran DO [address] [place] [address] PCP - Medical [place] [employer] 07/27/24 11/25/99 [place] NP [address] [place] [address] Nurse Practitioner Family Medicine 10/05/23 04/14/24 Trista Thao NP [address] [place] [address] Nurse Practitioner Pulmonary Disease 10/05/23 04/14/24 documented as of this encounter
--- OUTSIDE RECORDS SUMMARY | 2025-08-29 10:36 | XMS_ITS | Encounter Summary ---
Author Organization [facility] Address [address] [place] [address] Care Team Providers Care Senior Dot Net Developer Name Role Phone NirajEliceo kauffman Bryant DAY Primary Care Provider CharlottecarolEliceo Bryant DAY Unavailable [phone] Encounter Details Date Type Department Care Team (Late st Contact Info) Description 08/27/2025 Clinisync Result Encounter NOMS External Department Unsolicited Steph Keane, DEVYN [address] [facility] [place] [address] Social History Tobacco Use Types Packs/Day [...] How often do you attend chur or yazidism services? 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 Not on file documented as of this encounter Plan of Treatment Upcoming Encounters Date Type Department Care Team (Late st Contact Info) Description 09/03/2025 3:50 PM EDT Routine NOMS Patti IYERGYN [address] [facility] [place] [address] Steph Keane, RETAIL CENTER RECEPTIONIST [address] [facility] [place] [address] 09/07/2025 4:00 PM EDT Office Visit LANETTE YOUNGN [address] [facility] [place] [address] Nathan Pop DO [address] [place] [address] documented as of this encounter Procedures Procedure Name Priority Date/Time Associated Diagnosis Comments H CREATININE Routine 08/27/2025 5:00 PM EDT [facility] PROTHROMBIN TIME INR W/O COUM Routine 08/27/2025 5:00 PM EDT [facility] AST Routine 08/27/2025 5:00 PM EDT [facility] APTT Routine 08/27/2025 5:00 PM EDT ALL URIC ACID Routine 08/27/2025 5:00 PM EDT ALL LDH Routine 08/27/2025 5:00 PM EDT ALL CBC WITH AUTO DIFF Routine 08/27/2025 5:00 PM EDT ALL BUN Routine 08/27/2025 5:00 PM EDT documented in this encounter Results * [facility] APTT (08/27/2025 5:00 PM EDT) PARTIAL THROMBOPLASTIN TIME 25.6 22.3 - 36.2 sec [facility] 08/27/2025 5:00 PM EDT 08/27/2025 5:01 PM EDT Narrative [facility] - 08/27/2025 5:21 PM EDT us Steph Keane NP [facility] Final Result Performing Organization Address [facility] de Phone Number [facility] * [facility] PROTHROMBIN TIME INR W/O COUM (08/27/2025 5:00 PM EDT) PROTHROMBIN TIME 9.7 9.0 - 11.6 sec TBH TB INR <0.93 TBH Comment: DESIRED INR: 2.0-3.0 CONDITIONS NOT LISTED BELOW 2.5-3.5 FOR PROSTHETIC HEART VALVE REPLACEMENT 2.5-3.5 RECURRENT THROMBOSIS 08/27/2025 5:00 PM EDT 08/27/2025 5:01 PM EDT Narrative [facility] - 08/27/2025 5:21 PM EDT us Steph Keane NP [facility] Final Result Performing Organization Address [facility] de Phone Number [facility] * ALL LDH (08/27/2025 5:00 PM EDT) LACTATE DEHYDROGENASE 151 81 - 234 U/L TB 08/27/2025 5:00 PM EDT 08/27/2025 5:01 PM EDT Narrative [facility] - 08/27/2025 5:19 PM EDT us Steph Keane NP [facility] Final Result Performing Organization Address [facility] de Phone Number [facility] * [facility] AST (08/27/2025 5:00 PM EDT) ASPARTATE AMINO TRANSFERASE 21 15 - 37 U/L TB 08/27/2025 5:00 PM EDT 08/27/2025 5:01 PM EDT Narrative [facility]IN[facility] - 08/27/2025 5:19 PM EDT us Steph Keane NP [facility] Final Result Performing Organization Address [facility] Co de Phone Number CLIN[facility]NC TB * ALL URIC ACID (08/27/2025 5:00 PM EDT) URIC ACID 3.3 2.6 - 6.0 mg/dL TB 08/27/2025 5:00 PM EDT 08/27/2025 5:01 PM EDT Narrative CLIN[facility]NC - 08/27/2025 5:19 PM EDT us Steph Keane NP [facility]IN[facility] Final Result Performing Organization Address [facility] de Phone Number [facility]NC TB * (ABNORMAL) TBH CREATININE (08/27/2025 5:00 PM EDT) CREATININE 0.45(L) 0.55 - 1.02 mg/dL TBH TBH EGFR-AF VENEZUELAN >60 >=60 mL/min/1.7 3m 2 TBH TBH EGFR-NON AF VENEZUELAN >60 >=60 mL/min/1.7 3m 2 TBH 08/27/2025 5:00 PM EDT 08/27/2025 5:01 PM EDT Narrative CLINISYNC - 08/27/2025 5:19 PM EDT us Steph Keane NP [facility] Final Result Performing Organization Address [facility] de Phone Number [facility] TB * ALL BUN (08/27/2025 5:00 PM EDT) BLOOD UREA NITROGEN 9.0 7.0 - 18.0 mg/dL TB 08/27/2025 5:00 PM EDT 08/27/2025 5:01 PM EDT Narrative [facility]IN[facility] - 08/27/2025 5:19 PM EDT us Steph Keane NP [facility] Final Result Performing Organization Address [facility] Co de Phone Number CLIN[facility]NC TB * (ABNORMAL) ALL CBC WITH AUTO DIFF (08/27/2025 5:00 PM EDT) [facility] TBH WBC 13.3(H) 4.0 - 11.0 10 3/uL TBH TBH RBC 3.85(L) 4.20 - 5.40 10 6/uL TBH TBH HGB 11.3(L) 12.0 - 16.0 g/dL TBH TBH HCT 34.4(L) 36.0 - 48.0 % TBH TBH MCV 89.4 81.0 - 99.0 fL TBH TBH MCH 29.4 26.7 - 34.0 pg TBH TBH MCHC 32.8 29.9 - 35.2 g/dL TBH TBH RDW 13.0 11.0 - 15.0 % [...] Narrative [facility]IN[facility]NC - 08/27/2025 5:08 PM EDT us Generic External Data Provider JENNIFER F inal Result [facility] documented in this encounter Visit Diagnoses Not on filedocumented in this encounter Care Teams Senior Dot Net Developer Relationship Specialty Start Date End Date Eliceo Beltran DO [address] [place] [address] PCP - General Family Medicine 02/14/24 Eliceo Beltran DO [address] [place] [address] PCP - Medical [place] [employer] 07/27/24 11/25/99 documented as of this encounter
--- OUTSIDE RECORDS SUMMARY | 2025-08-29 10:36 | XMS_ITS | Encounter Summary ---
Author Organization [facility] Address [address] [place] [address] Care Team Providers Care Meat Counter Clerk Name Role Phone NirajEliceo kauffman Primary Care Provider [phone] Charlottecarol Eliceo Hurtado DO Unavailable [phone] Encounter Details Date Type Department Care Team (Late st Contact Info) Description 03/16/2025 Abstract [facility] Patti OBGYN [address] [facility] [place] [phone] Nathan Pop DO [address] [facility] [address] [place], [id number] Social History Tobacco Use Types Packs/Day Years [...] How often do you attend chur or voodoo services? Patient declined 12/29/2024 Do you belong to any clubs o r organizations such as gnosticist groups, unions, fraManga Corta or athletic groups, or school groups? No [...] Recorded Patient Health Questionnaire-2 Score 0 12/30/2024 [facility] of Occupat ional Health - [...] in a alf (including now)? No 09/19/2023 Housing Stability Vital Sign Answer Kang e Recorded In the last 12 months, was t here a time when you were not able to pay the mortgage or rent on time? No 12/29/2024 Number of Times Moved in the Last Year Not on fi le 12/29/2024 At any time in the past 12 m [facility], were you homeless or living in a alf (including now)? 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 on file Not on file documented as of this encounter Plan of Treatment Upcoming Encounters Date Type Department Care Team (Late st Contact Info) Description 09/03/2025 3:50 PM EDT Routine [facility]OM[facility] Patti MOODY [address] [facility] [place] [address] Steph Keane, ONCOLOGY REP [address] [facility] [place] [address] 09/07/2025 4:00 PM EDT Office Visit [facility]OMS Patti YOUNGN [address] [facility] [place] [address] Nathan Pop DO [address] [facility] [address] [place] [place], [place] [address] documented as of this encounter Visit Diagnoses Not on filedocumented in this encounter Care Teams Meat Counter Clerk Relationship Specialty Start Date End Date Eliceo Beltran DO [address] [place] [address] PCP - General Family Medicine 02/14/24 Eliceo Beltran DO [address] [place] [address] PCP - Medical [place] [employer] 07/27/24 11/25/99 documented as of this encounter
--- OUTSIDE RECORDS SUMMARY | 2025-08-29 10:36 | XMS_ITS | Encounter Summary ---
Author Organization [facility] Address [address] [place] [address] Care Team Providers Care Plant Maintenance Technician Name Role Phone NirajEliceo kauffman Primary Care Provider [phone] Charlottecarol Eliceo Hurtado DO Unavailable [phone] Encounter Details Date Type Department Care Team (Late st Contact Info) Description 08/20/2025 Abstract [facility] [place] [facility] [address] [place] [phone] Nathan Pop DO [address] [place], [facility] Social History Tobacco Use Types Packs/Day Years [...] How often do you attend chur or yarsanism services? Patient declined 12/29/2024 Do you belong to any clubs o r organizations such as confucianist groups, unions, fraRewarder or athletic groups, or school groups? No [...] Recorded Patient Health Questionnaire-2 Score 0 07/30/2025 [facility] - Occupational Stress Questionnaire [...] in a half-way (including now)? No 09/19/2023 Housing Stability Vital Sign Answer Kang e Recorded In the last 12 months, was t here a time when you were not able to pay the mortgage or rent on time? No 12/29/2024 Number of Times Moved in the Last Year Not on fi le 12/29/2024 At any time in the past 12 m [facility], were you homeless or living in a half-way (including now)? 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 Not on file documented as of this encounter Plan of Treatment Upcoming Encounters Date Type Department Care Team (Late st Contact Info) Description 09/03/2025 3:50 PM EDT Routine NOMShalonda [place] [address] [place] [address] Steph Keane, DEVYN [address] [place] [address] 09/07/2025 4:00 PM EDT Office Visit [place] [address] [place] [address] Nathan Pop DO [address] [place] [address] documented as of this encounter Visit Diagnoses Not on filedocumented in this encounter Care Teams Plant Maintenance Technician Relationship Specialty Start Date End Date Eliceo Beltran DO [address] [place] [address] PCP - General Family Medicine 02/14/24 Eliceo Beltran DO [address] [place] [address] PCP - Medical [place] [employer] 07/27/24 11/25/99 documented as of this encounter
--- OUTSIDE RECORDS SUMMARY | 2025-08-29 10:36 | XMS_ITS | Encounter Summary ---
Author Organization [facility] Address [address] [facility] [place] [address] Care Team Providers Care Osteopathy Doctor Name Role Phone Cruz Rodríguez MD Unavailable + [phone] Cruz Rodríguez MD Primary Care Provider [phone] Cruz Rodríguez MD Unavailable + 54 [place] CRAB BUTCHER Unavailable Trista Thao CRAB BUTCHER Unavailable [phone] Eliceo Beltran DO Primary Care Provider [phone] Eliceo Beltran DO Unavailable [phone] Encounter Details Date Type Department Care Team (Late st Contact Info) Description 09/19/2023 Orders Only [place] Family Medicine [address] [place] [address] Cruz Rodríguez MD [address] [place] [address] Social History Tobacco Use Types Packs/Day Years [...] week 09/19/2023 How often do you attend [facility] or [facility] services? Patient declined 09/19/2023 Do you belong [...] and heating? Not hard at all 09/19/2023 [facility] [place] of Occupat ional Health - Occupational Stress [...] in a snf (including now)? 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 file [...] 3:50 PM EDT Routine NOMShalonda MOODY [address] [place] [address] Steph Keane, DEVYN [address] [facility] [place] [address] 09/07/2025 4:00 PM EDT Office Visit [place] [address] [place] [address] Nathan Pop DO [address] [facility] [place] [address] documented as of this encounter Visit Diagnoses Not on filedocumented in this encounter Care Teams Osteopathy Doctor Relationship Specialty Start Date End Date Cruz Rodríguez MD [address] [facility] PCP - [facility] 09/26/2111/25 Cruz Rodríguez MD [address] [place] [place] [id number] PCP - General Family Medicine 04/10/23 02/13/24 Cruz Rodríguez MD [address] [place] [id number] PCP - [facility] 02/24/23 4 Eliceo Beltran DO [address] [place] [address] PCP - General Family Medicine 02/14/24 Eliceo Beltran DO [address] [place] [address] PCP - Medical [place] [employer] 07/27/24 11/25/99 Zenobia [place] NP [address] [place] [address] Nurse Practitioner Family Medicine 10/05/23 04/14/24 Trista Thao NP [address] [place] [phone] Nurse Practitioner Pulmonary Disease 10/05/23 04/14/24 documented as of this encounter
--- OUTSIDE RECORDS SUMMARY | 2025-08-29 10:36 | XMS_ITS | Encounter Summary ---
Author Organization [facility] Address [address] [facility] [place] [address] Care Team Providers Care Cloth Printing Back Tender Name Role Phone Cruz Rodríguez MD Unavailable + 54 Cruz Rodríguez MD Unavailable + 54 Eliceo Beltran DO Primary Care Provider [phone] Eliceo Beltran DO Unavailable [phone] Encounter Details Date Type Department Care Team (Late st Contact Info) Description 08/25/2024 Orders Only [facility] [place] [facility] [address] [place] [address] Virgen Steen LPN [address] [place] [address] Social History Tobacco Use Types Packs/Day [...] often do you attend chur ch or moravian services? 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 file Not on file documented as of this encounter Plan of Treatment Upcoming Encounters Date Type Department Care Team (Late st Contact Info) Description 09/03/2025 3:50 PM EDT Routine [place] MOODY [address] [place] [address] Steph Keane, DEVYN [address] [place] [address] 09/07/2025 4:00 PM EDT Office Visit [place] MOODY [address] [place] [address] Nathan Pop DO [address] [place] [address] documented as of this encounter Procedures [...] on filedocumented in this encounter Care Teams Cloth Printing Back Tender Relationship Specialty Start Date End Date Cruz Rodríguez MD [address] [place] [address] PCP - [place] [employer] 09/26/2111/25 Cruz Rodríguez MD [address] [place] [address] PCP - [facility] 02/24/23 4 Eliceo Beltran DO [address] [place] [address] PCP - General Family Medicine 02/14/24 Eliceo Beltran DO [address] [place] [address] PCP - Medical [place] [employer] 07/27/24 11/25/99 documented as of this encounter
--- OUTSIDE RECORDS SUMMARY | 2025-08-29 10:36 | XMS_ITS | Encounter Summary ---
Author Organization [facility] Address [address] [place] [address] Care Team Providers Care Transformer Inspector Name Role Phone NirajEliceo kauffman Bryant DAY Primary Care Provider [phone] CharlottecarolEliceo Bryant DAY Unavailable [phone] Encounter Details Date Type Department Care Team (Late st Contact Info) Description 08/27/2025 Clinisync Result Encounter NOMS External Department Unsolicited Steph Keane, DEVYN [address] [facility] [place] [address] Social History Tobacco Use Types [...] How often do you attend chur or baptist services? 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 [facility] [place] [address] 09/07/2025 4:00 PM EDT Office Visit [facility] [place] [facility] [address] [place] [address] Nathan Pop DO [address] [facility] [facility] [address] [place], [place] [address] documented as of this encounter Procedures Procedure Name Priority Date/Time Associated Diagnosis Comments US OB BPP W NON-STRESS 08/27/2025 6:02 PM EDT TB URINE T PROTEIN CREAT RATIO Routine 08/27/2025 5:50 PM EDT documented in this encounter Results * US OB BPP W NON-STRESS (08/27/2025 6:02 PM EDT) Anatomical Region Laterality Modality Other 08/27/2025 6:02 PM EDT Narrative 08/27/2025 6:05 PM EDT The [address] [address] Ultrasound Report Signed Patient: DRISS GAMA MR#: [id number] : 1995 Acct:[id number] Age/Sex: 30 / F ADM Date: Loc: [facility] 250-[address]: KUNAL HYATT M.D. Ordering Physician: Steph Keane Date of Service: 08/27/25 Procedure(s): US OB BPP w non-stress Accession Number(s): [id number] cc: Steph Keane; Yomaira BELTRAN The [address] [address] Patient Name: DRISS GAMA MRN: [facility]:[id number] date: 1995 Sex: F Assigned Patient Location: LAB Current Patient Location: LAB Accession/Order Number: [id number] Exam Date: 08/27/2025 17:37 Report Date: 08/27/2025 [...] Morillo M.D. 08/27/2025 6:02 PM [facility]ation [facility] Electron[facility] authenticated by: [id number] Y Date: 08/27/2025 18:02 Dictated By: Jp Morillo D.O. Signed By: 08/27/251804 DD/ 01 TD/TT: Slip Mixer: Procedure Note Radiology, Radiologist, MD - 08/27/2025 [place] [address] Ultrasound Report Signed Patient: DRISS GAMA MMR#: [id number] : 1995Acct:[id number] Age/Sex: 30 / FADM Date: Loc: [facility] 250-[address]: KUNAL HYATT M.D. Ordering Physician: Steph Keane Date of Service: 08/27/25 Procedure(s): US OB BPP w non-stress Accession Number(s): [id number] cc: Steph Keane; Yomaira BELTRAN The [address] [address] Patient Name: DRISS GAMA MRN: [id number] date: 1995 Sex: F Assigned Patient Location: LAB Current Patient Location: LAB Accession/Order Number: [id number] Exam Date: 08/27/2025 17:37 Report Date: 08/27/2025 [...] Morillo M.D. 08/27/2025 6:02 PM Dictation Location: [employer] Electronically authenticated by: [id number] Y Date: 8:02 Dictated By: Jp Morillo D.O. Signed By:08/27/251804 DD/ 01 TD/TT: Slip Mixer: Steph Keane NP [facility] Final Resul t * (ABNORMAL) TBH URINE T PROTEIN CREAT RATIO (08/27/2025 5:50 PM EDT) TOTAL PROTEIN URINE RANDOM <6.0 <=11.9 mg/dL [facility] CREATININE URINE RANDOM <13.00(L) 20.00 - 300.00 mg/dL TBH 08/27/2025 5:50 PM EDT 08/27/2025 5:58 PM EDT Narrative [facility] - 08/27/2025 6:10 PM EDT Steph Keane NP [facility] Final Result [facility] TB documented in this encounter Visit Diagnoses Not on filedocumented in this encounter Care Teams Transformer Inspector Relationship Specialty Start Date End Date Eliceo Beltran DO [address] [place] [address] PCP - General Family Medicine 02/14/24 Eliceo Beltran DO [address] [facility] [address] [place] [address] PCP - Medical [place] [employer] 07/27/24 11/25/99 documented as of this encounter
--- OUTSIDE RECORDS SUMMARY | 2025-08-29 10:36 | XMS_ITS | Encounter Summary ---
Author Organization [facility] tem Address [id number] [address] [place] [address] Care Team Providers Care Support Analyst Name Role Phone Cruz Rodríguez MD Primary Care Provider [phone] Encounter Details Date Type Department Care Team (Late st Contact Info) Description 08/18/2025 Abstract Maternal- Medicine at [facility] [address] [place] [address] Quynh Clements MD [address] [address] Social History Tobacco Use Types Packs/Day Years [...] 09/10/2025 9:45 AM EDT Appointment Maternal Medicine [place] [address] [phone] 09/10/2025 11:00 AM EDT Telemedicine Maternal Medicine [place] [address] [address] Quynh Clements MD [address] [facility], [address] [place] [address] documented as of this encounter Procedures Procedure [...] ORDERABLES Final Re sult Performing Organization Address [facility] Co de Phone Number MANUALLY TRANSCRIBED RESULTS * CBC without diff (05/04/2025) Hemoglobin 13.2 MANUALLY TRANSCRIBED RESULTS Hematocrit 39.8 MANUALLY TRANSCRIBED RESULTS Rbc Mcv (Fl) By Automated Count 84.7 MANUALLY TRANSCRIBED RESULTS Platelets 390 MANUALLY TRANSCRIBED RESULTS Blood Venous blood / Unknown us Not In System Ref Prov LAB BLOOD ORDERABLES Jayla l Result Performing Organization Address [facility] de Phone Number MANUALLY TRANSCRIBED RESULTS * Type and screen (05/04/2025) Abo/Rh(D) O Positive MANUALLY TRANSCRIBED RESULTS Antibody Screen negative MANUALLY TRANSCRIBED RESULTS Blood Venous blood / Unknown us Not In System Ref Prov BLOOD BANK TEST ORDERABLE S Final Result Performing Organization Address [facility] de Phone Number MANUALLY TRANSCRIBED RESULTS * Hemoglobin A1c (05/04/2025) Hemoglobin A1C 5.3 4.0 - 6.0 % MANUALLY TRANSCRIBED RESULTS Blood Venous blood / Unknown us Nathan R Kiesha DO LAB BLOOD ORDERABLES Final Resu lt Performing Organization Address [facility] de Phone Number MANUALLY TRANSCRIBED RESULTS * Hepatitis B surface antigen (05/04/2025) Hepatitis B Surface Antigen negative MANUALLY TRANSCRIBED RESULTS Blood Venous blood / Unknown us Not In System Ref Prov LAB BLOOD ORDERABLES Jayla l Result Performing Organization Address [facility] de Phone Number MANUALLY [...] ORDERABLES Jayla l Result Performing Organization Address City/[facility] Co de Phone Number MANUALLY TRANSCRIBED RESULTS * Rubella IGG immune status (05/04/2025) Rubella immune IgG <0.90 MANUALLY TRANSCRIBED RESULTS Blood Venous blood / Unknown us Not In System Ref Prov LAB BLOOD ORDERABLES Jayla l Result Performing Organization Address City/[facility] Co de Phone Number MANUALLY TRANSCRIBED RESULTS documented in this encounter Visit Diagnoses Not on filedocumented in this encounter Care Teams Support Analyst Relationship Specialty Start Date End Date Cruz Rodríguez MD [address] [place] [address] PCP - General Family Medicine 12/02/18 documented as of this encounter
--- OUTSIDE RECORDS SUMMARY | 2025-08-29 10:36 | XMS_ITS | Encounter Summary ---
Author Organization [facility] Address [address] [facility] [place] [address] Care Team Providers Care Roto Mixer Operator Name Role Phone Cruz Rodríguez MD Unavailable + 54 Cruz Rodríguez MD Primary Care Provider [phone] Cruz Rodríguez MD Unavailable + 54 [place] SALES RESEARCH ANALYST Unavailable Trista Thao SALES RESEARCH ANALYST Unavailable [phone] Eliceo Beltran DO Primary Care Provider [phone] Eliceo Beltran DO Unavailable [phone] Encounter Details Date Type Department Care Team (Late st Contact Info) Description 09/17/2023 Abstract [facility] Family Medicine [address] [place] [address] Cruz Rodríguez MD [address] [place] [address] Social History Tobacco Use Types Packs/Day Years [...] attend chur or pentecostalism services? Patient declined 09/19/2023 Do you belong [...] and heating? 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 Not [...] 3:50 PM EDT Routine NOMShalonda MOODY [address] [place] [address] Steph Keane, DEVYN [address] [facility] [place] [address] 09/07/2025 4:00 PM EDT Office Visit [place] [address] [place] [address] Nathan Pop DO [address] [facility] [place] [address] documented as of this encounter Visit Diagnoses Not on filedocumented in this encounter Care Teams Roto Mixer Operator Relationship Specialty Start Date End Date Cruz Rodríguez MD [address] [facility] PCP - [facility] 09/26/2111/25 Cruz Rodríguez MD [address] [facility] PCP - General Family Medicine 04/10/23 02/13/24 Cruz Rodríguez MD [address] [place] [address] PCP - [facility] 02/24/23 4 Eliceo Beltran DO [address] [place] [address] PCP - General Family Medicine 02/14/24 Eliceo Beltran DO [address] [place] [address] PCP - Medical [place] [employer] 07/27/24 11/25/99 Zenobia [place] NP [address] [place] [address] Nurse Practitioner Family Medicine 10/05/23 04/14/24 Trista Thao NP [address] [place] [address] Nurse Practitioner Pulmonary Disease 10/05/23 04/14/24 documented as of this encounter
--- OUTSIDE RECORDS SUMMARY | 2025-08-29 10:36 | XMS_ITS | Patient Health Record ---
Author Organization [facility] Address [address] [place] [address] Care Team Providers Care Customer Service Advisor Name Role Phone Cruz Rodríguez Primary Care [...] Status W/U Status Risk Notes Problem Tachycardia (0760188) Tachycardia (R00.0) Active confirmed Problem Obesity (808857112) Obesity (BMI 30-39.9) (E66.9) Active confirmed Plan Of Treatment No Information Insurance Providers Payer Name Payer Address Payer Phone Subscriber Number Group Number Insured Name Patient Relationship to Insured Coverage Start Date Coverage End Date [facility] [address] [place] [address] [id number] Driss Woodruff Self - patient is the insured Medical [place] [address] [place] [address] [id number] Driss Woodruff Self - patient is the insured Medical (General) History Medical History History ICD Code Tachycardia R00.0 Surgical History Surgery Date(Month/Year) right shoulder surgery endometriosis appendectomy Hospitalization History Reason Date(Month/Year) surgeries childbirth
--- OUTSIDE RECORDS SUMMARY | 2025-08-29 10:36 | XMS_ITS | Encounter Summary ---
Author Organization [facility] tem Address [id number] [address] [place] [address] Care Team Providers Care Therapeutic Radiologist Name Role Phone Cruz Rodríguez MD Primary Care Provider [phone] Encounter Details Date Type Department Care Team (Late st Contact Info) Description 08/18/2025 Orders Only Maternal- Medicine at [facility] [address] [facility] [place] [address] Khalida Garrett RN History of pre-eclampsia in [...] 09/10/2025 9:45 AM EDT Appointment Maternal Medicine [place] [address] [facility] [address] [place] [address] 09/10/2025 11:00 AM EDT Telemedicine Maternal Medicine [place] [address] [facility] 4 [place] [address] Quynh Clements MD [address], [address] [place] [address] documented as of this encounter Procedures Procedure [...] history documented in this encounter Care Teams Therapeutic Radiologist Relationship Specialty Start Date End Date Cruz Rodríguez MD [address] [place] [address] PCP - General Family Medicine 12/02/18 documented as of this encounter
--- OUTSIDE RECORDS SUMMARY | 2025-08-29 10:37 | XMS_ITS | Encounter Summary ---
Author Organization [facility] [employer] [facility] tem Address [facility]549[facility] [address] [place] [address] Care Team Providers Care Pool Finisher Name Role Phone Cruz Rodríguez MD Primary Care Provider [phone] Encounter Details Date Type Department Care Team (Late Contact Info) Description 08/19/2025 Orders Only Maternal- Medicine at [facility] [address] [place] [address] Ref Prov, [place] [address] Social History Tobacco Use Types Packs/Day Years [...] 09/10/2025 9:45 AM EDT Appointment Maternal Medicine [place] [address] [facility] 4 [place] [address] 09/10/2025 11:00 AM EDT Telemedicine Maternal Medicine [place] [address] [facility] 4 [place] [address] Quynh Clements MD [address] [facility], [address] [place] [address] documented as of this encounter Procedures Procedure [...] ORDERABLES Jayla l Result Performing Organization Address [facility] de Phone Number MANUALLY TRANSCRIBED RESULTS * Unlisted Lab Test (07/04/2025 11:17 AM EDT) us Not In System Ref Prov LAB BLOOD ORDERABLES Ajyla l Result Performing Organization Address [facility] de Phone Number MANUALLY TRANSCRIBED RESULTS * Ultrasound - Office (05/01/2025 10:15 AM EDT) Anatomical Region Laterality Modality AMB Ultrasound us Not In System Ref Prov IMG US ORDERABLES Final R esult documented in this encounter Visit Diagnoses Not on filedocumented in this encounter Care Teams Pool Finisher Relationship Specialty Start Date End Date Cruz Rodríguez MD [address] [place] [address] PCP - General Family Medicine 12/02/18 documented as of this encounter
--- OUTSIDE RECORDS SUMMARY | 2025-08-29 10:37 | XMS_ITS | Clinical Summary ---
Author Organization [employer] tem Address [facility]-[id number] [address] 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 DRIVER) 5 mg disintegrating tablet Dissolve 1 tablet [...] PM EDT Support Visit Maternal- Medicine at [facility] [address] [place] [address] Teena Sarmiento, RN Kerline Steiner, RD Gestational diabetes mellitus (GDM) in second trimester, gestational diabetes method of control unspecified 08/23/2025 Travel 08/22/2025 Travel 08/21/2025 Abstract Maternal- Medicine at [facility] [address] [place] [address] External, Scanning Provider 08/19/2025 Orders Only Maternal- Medicine at [facility] [address] [place] [address] Ref Prov, Not In System 08/18/2025 Abstract Maternal- Medicine at [facility] [address] [address] Quynh Clements MD 08/18/2025 Orders Only Maternal- Medicine at [address] [address] Khalida Garrett RN History of pre-eclampsia in [...] 09/10/2025 9:45 AM EDT Appointment Maternal Medicine [place] [address] [facility] [address] [place] [address] 09/10/2025 11:00 AM EDT Telemedicine Maternal Medicine [place] [address] [facility] [address] [place] [address] Quynh Clements MD [address] [facility], [address] [place] [address] Health Maintenance Due Date Last Done Comments [...] ORDERABLES Jayla l Result Performing Organization Address [facility] de Phone Number MANUALLY TRANSCRIBED RESULTS * Glucose tolerance, 1 hour (08/15/2025) Glucose Tolerance Test 1 Hour 152 MANUALLY TRANSCRIBED RESULTS Blood Venous blood / Unknown us Not In System Ref Prov LAB BLOOD ORDERABLES Jayla l Result Performing Organization Address [facility] de Phone Number MANUALLY TRANSCRIBED RESULTS * Glucose tolerance, 3 hours (08/15/2025) Glucose Tolerance Test 3 Hour 141 MANUALLY TRANSCRIBED RESULTS Blood Venous blood / Unknown us Not In System Ref Prov LAB BLOOD ORDERABLES Jayla l Result Performing Organization Address [facility] Phone Number MANUALLY TRANSCRIBED RESULTS * Glucose, tolerance fasting (08/15/2025) Glucose Tolerance Test Fasting 82 MANUALLY TRANSCRIBED RESULTS Blood Venous blood / Unknown us Not In System Ref Prov LAB BLOOD ORDERABLES Jayla l Result Performing Organization Address [facility] Phone Number MANUALLY TRANSCRIBED RESULTS * [...] ORDERABLES Jayla l Result Performing Organization Address [facility]/ZIP Co de Phone Number MANUALLY TRANSCRIBED [...] 3 Months Insurance [employer] Care Teams Cytogenetics Laboratory Manager Relationship Specialty Start Date End Date Cruz Rodríguez MD [address] [place] [address] PCP - General Family Medicine 12/02/18
--- OUTSIDE RECORDS SUMMARY | 2025-08-29 10:37 | XMS_ITS | Encounter Summary ---
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 Not on file documented as of this encounter Plan of Treatment Upcoming Encounters Date Type Department Care Team (Late Contact Info) Description 09/03/2025 3:50 PM EDT Routine NOMShalonda MOODY [address] [place] [address] Steph Keane, DEVYN [address] [facility] [place] [address] 09/07/2025 4:00 PM EDT Office Visit LANETTE MOODY [address] [place] [address] Nathan Pop DO [address] [facility] [place] [address] documented as of this encounter Procedures [...] DATE OF EXAM: Jun 12 2023 2:47PM [facility] 0713 - MRI FEMALE PELVIS [...] additional findings. IMPRESSION: No deep infiltrating endometriosis. Thermal Cutter Hand: PSCB Transcribe Date/Time: Jun 12 2023 2:54P Dictated by : ASHLEY DUKE MD This examination was interpreted and the report reviewed and electronically signed by: SONIDO FLAHERTY MD on Jun 12 2023 4:51PM EST [id number]^ACN Procedure Note Radiology, Radiologist, - 06/13/2023 * * *Final Report* * * DATE OF EXAM: Jun 12 2023 2:47PM [facility] 0713 - MRI FEMALE PELVIS [...] additional findings. IMPRESSION: No deep infiltrating endometriosis. Thermal Cutter Hand: [facility] Transcribe Date/Time: Jun 12 2023 2:54P Dictated by : ASHLEY DUKE MD This examination was interpreted and the report reviewed and electronically signed by: SONIDO FLAHERTY MD on Jun 12 2023 4:51PM EST [id number]^ACN us Generic External Data Provider [facility] Final Result documented in this encounter Visit Diagnoses Not on filedocumented in this encounter Care Teams Drainage Engineer Relationship Specialty Start Date End Date Cruz Rodríguez MD [address] [place] [address] PCP - [place] [employer] 09/26/2111/25 Cruz Rodríguez MD [address] [place] [address] PCP - General Family Medicine 04/10/23 02/13/24 Cruz Rodríguez MD [address] [place] [address] PCP - [facility] 02/24/23 4 Eliceo Beltran DO [address] [place] [address] PCP - General Family Medicine 02/14/24 Eliceo Beltran DO [address] [place] [address] PCP - Medical [place] [employer] 07/27/24 11/25/99 [facility] [place] NP [address] [place] [address] Nurse Practitioner Family Medicine 10/05/23 04/14/24 Trista Thao NP [address] [place] [address] Nurse Practitioner Pulmonary Disease 10/05/23 04/14/24 documented as of this encounter
--- OUTSIDE RECORDS SUMMARY | 2025-08-29 10:37 | XMS_ITS | Encounter Summary ---
Author Organization [facility] Address [address] [facility] [place] [address] Care Team Providers Care Instructional Support Technician Name Role Phone Cruz Rodríguez MD Unavailable + 54 Cruz Rodríguez MD Primary Care Provider +54 Cruz Rodríguez MD Unavailable + 54 [place] ROLLER SKATES ASSEMBLER Unavailable Trista Thao ROLLER SKATES ASSEMBLER Unavailable +-[phone] Eliceo Beltran DO Primary Care Provider [phone] Eliceo Beltran DO Unavailable [phone] Encounter Details Date Type Department Care Team (Late st Contact Info) Description 05/01/2023 Abstract [facility] [place] [facility] [address] 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 [...] [address] [facility] [place] [address] Steph Keane, ROLLER SKATES ASSEMBLER [address] [facility] [place] [address] 09/07/2025 4:00 PM EDT Office Visit LANETTE MOODY [address] [facility] [place] [address] Nathan Pop DO [address] [facility] [address] [place], [place] [phone] documented as of this encounter Visit Diagnoses Not on filedocumented in this encounter Care Teams Instructional Support Technician Relationship Specialty Start Date End Date Cruz Rodríguez MD [address] [place] [address] PCP - [place] [employer] 09/26/2111/25 Cruz Rodríguez MD [address] [place] [address] PCP - General Family Medicine 04/10/23 02/13/24 Cruz Rodríguez MD [address] [place] [address] PCP - [facility] 02/24/23 4 Eliceo Beltran DO [address] [place] [address] PCP - General Family Medicine 02/14/24 Eliceo Beltran DO [address] [place] [address] PCP - Medical [place] [employer] 07/27/24 11/25/99 [facility] NP [address] [place] [address] Nurse Practitioner Family Medicine 10/05/23 04/14/24 Trista Thao ROLLER SKATES ASSEMBLER [address] [place] [address] Nurse Practitioner Pulmonary Disease 10/05/23 04/14/24 documented as of this encounter
--- OUTSIDE RECORDS SUMMARY | 2025-08-29 10:37 | XMS_ITS | Encounter Summary ---
Author Organization [employer] tem Address [facility]-[id number] [address] [place] [address] Care Team Providers Care Nurseryman Assistant Name Role Phone Cruz Rodríguez MD Primary Care Provider [phone] Encounter Details Date Type Department Care Team [...] 09/10/2025 9:45 AM EDT Appointment Maternal Medicine [place] [address] [facility] [address] [place] [address] 09/10/2025 11:00 AM EDT Telemedicine Maternal Medicine [place] [address] [facility] 4 [place] [address] Quynh Clements MD [address] [facility], [address] [place] [address] documented as of this encounter Visit Diagnoses Not on filedocumented in this encounter Care Teams Nurseryman Assistant Relationship Specialty Start Date End Date Curz Rodríguez MD [address] [place] [address] PCP - General Family Medicine 12/02/18 documented as of this encounter
--- OUTSIDE RECORDS SUMMARY | 2025-08-29 10:37 | XMS_ITS | Encounter Summary ---
Author Organization [facility] Address [address] [facility] [place] [address] Care Team Providers Care Hand Molder Name Role Phone Cruz Rodríguez MD Unavailable + 54 Cruz Rodríguez MD Primary Care Provider +54 Cruz Rodríguez MD Unavailable + 54 [place] ENERGY PROJECTS LEAD Unavailable Trista Thao ENERGY PROJECTS LEAD Unavailable +-[phone] Eliceo Beltran DO Primary Care Provider [phone] Eliceo Beltran DO Unavailable [phone] Encounter Details Date Type Department Care Team (Late st Contact Info) Description 05/23/2023 Abstract [facility] [place] [facility] [address] [facility] [address] [place] [address] Briana Robles LPN [address] [facility] [place] [address] [place] [address] Social History Tobacco Use Types Packs/Day Years [...] 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 [...] 3:50 PM EDT Routine LANETTE MOODY [address] [facility] [place] [address] Steph Keane, ENERGY PROJECTS LEAD [address] [facility] [place] [address] 09/07/2025 4:00 PM EDT Office Visit LANETTE MOODY [address] [facility] [place] [address] Nathan Pop DO [address] [facility] [address] [place], [place] [address] documented as of this encounter Visit Diagnoses Not on filedocumented in this encounter Care Teams Hand Molder Relationship Specialty Start Date End Date Cruz Rodríguez MD [address] [place] [address] PCP - [place] [employer] 09/26/2111/25 Cruz Rodríguez MD [address] [place] [address] PCP - General Family Medicine 04/10/23 02/13/24 Cruz Rodríguez MD [address] [place] [address] PCP - [facility] 02/24/23 4 Eliceo Beltran DO [address] [place] [address] PCP - General Family Medicine 02/14/24 Eliceo Beltran DO [address] [place] [address] PCP - Medical [place] [employer] 07/27/24 11/25/99 [facility] NP [address] [place] [address] Nurse Practitioner Family Medicine 10/05/23 04/14/24 Trista Thao, ENERGY PROJECTS LEAD [address] [place] [address] Nurse Practitioner Pulmonary Disease 10/05/23 04/14/24 documented as of this encounter
--- OUTSIDE RECORDS SUMMARY | 2025-08-29 10:37 | XMS_ITS | Encounter Summary ---
Author Organization [employer] tem Address [facility]-[id number] [address] [place] [address] Care Team Providers Care Shells Inspector Name Role Phone Cruz Rodríguez MD Primary Care Provider [phone] Encounter Details Date Type Department Care Team [...] 09/10/2025 9:45 AM EDT Appointment Maternal Medicine [place] [address] [facility] [address] [place] [address] 09/10/2025 11:00 AM EDT Telemedicine Maternal Medicine [place] [address] [facility] 4 [place] [address] Quynh Clements MD [address] [facility], [address] [place] [address] documented as of this encounter Visit Diagnoses Not on filedocumented in this encounter Care Teams Shells Inspector Relationship Specialty Start Date End Date Cruz Rodríguez MD [address] [place] [address] PCP - General Family Medicine 12/02/18 documented as of this encounter
--- OUTSIDE RECORDS SUMMARY | 2025-08-29 10:37 | XMS_ITS | Encounter Summary ---
Author Organization [facility] Address [address] [facility] [place] [address] Care Team Providers Care Cyber Intelligence Analyst Name Role Phone Cruz Rodríguez MD Unavailable + 54 Cruz Rordíguez MD Primary Care Provider +54 Cruz Rodríguez MD Unavailable + 54 [place] HEAVY FORGER HELPER Unavailable Trista Thao HEAVY FORGER HELPER Unavailable +-[phone] Eliceo Beltran DO Primary Care Provider +[phone] Eliceo Beltran DO Unavailable [phone] Encounter Details Date Type Department Care Team (Late st Contact Info) Description 07/24/2023 Abstract [facility] [place] Podiat[facility] [address] [facility] [address] [place] [address] Kellee Starkey LPN Social History Tobacco Use [...] 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 [place] [address] 09/07/2025 4:00 PM EDT Office Visit LANETTE MOODY [address] [facility] [place] [address] Nathan Pop DO [address] [facility] [address] [place], [place] [address] documented as of this encounter Visit Diagnoses Not on filedocumented in this encounter Care Teams Cyber Intelligence Analyst Relationship Specialty Start Date End Date Cruz Rodríguez MD [address] [facility] PCP - [facility] 09/26/2111/25 Cruz Rodríguez MD [address] [place] [address] PCP - General Family Medicine 04/10/23 02/13/24 Cruz Rodríguez MD [address] [place] [address] PCP - [facility] 02/24/23 4 Eliceo Beltran DO [address] [place] [address] PCP - General Family Medicine 02/14/24 Eliceo Beltran DO [address] [place] [address] PCP - Medical [place] [employer] 07/27/24 11/25/99 [facility] [place] NP [address] [place] [address] Nurse Practitioner Family Medicine 10/05/23 04/14/24 Trista Thao HEAVY FORGER HELPER [address] [place] [address] Nurse Practitioner Pulmonary Disease 10/05/23 04/14/24 documented as of this encounter
--- OUTSIDE RECORDS SUMMARY | 2025-08-29 10:37 | XMS_ITS | Encounter Summary ---
Author Organization [facility] tem Address [facility]-[id number] [address] [place] [address] Care Team Providers Care Host/Hostess Ground Name Role Phone Cruz Rodríguez MD Primary Care Provider [phone] Encounter Details Date Type Department Care Team (Late Contact Info) Description 08/21/2025 Abstract Maternal- Medicine at [facility] [address] [facility] [place] [address] External, Scanning Provider Social History Tobacco Use [...] 09/10/2025 9:45 AM EDT Appointment Maternal Medicine [place] [address] [place] [address] 09/10/2025 11:00 AM EDT Telemedicine Maternal Medicine [place] [address] [facility] 4 [place] [address] Quynh Clements MD [address], [address] [place] [address] documented as of this encounter Procedures Procedure [...] ORDERABLES Jayla l Result Performing Organization Address [facility]/ZIP Co de Phone Number MANUALLY TRANSCRIBED [...] ORDERABLES Jayla l Result Performing Organization Address [facility] de Phone Number MANUALLY TRANSCRIBED RESULTS * 2nd hr Glucose Tolerance 100 gm load (08/15/2025) Glucose Tolerance Test 2 Hour 169 MANUALLY TRANSCRIBED RESULTS Blood Venous blood / Unknown us Not In System Ref Prov LAB BLOOD ORDERABLES Jayla l Result Performing Organization Address [facility] de Phone Number MANUALLY TRANSCRIBED RESULTS * Glucose 1h post 50g load (08/12/2025) Glucose, 1 hr PP 50GM dose 155 MANUALLY TRANSCRIBED RESULTS Blood Venous blood / Unknown us Not In System Ref Prov LAB BLOOD ORDERABLES Jayla l Result Performing Organization Address [facility] de Phone Number MANUALLY TRANSCRIBED RESULTS documented in this encounter Visit Diagnoses Not on filedocumented in this encounter Care Teams Host/Hostess Ground Relationship Specialty Start Date End Date Cruz Rodríguez MD [address] [place] [address] PCP - General Family Medicine 12/02/18 documented as of this encounter
--- OUTSIDE RECORDS SUMMARY | 2025-08-29 10:37 | XMS_ITS | Encounter Summary ---
Author Organization [facility] Address [address] [facility] [place] [address] Care Team Providers Care Grievance And Appeals Specialist Name Role Phone Cruz Rodríguez MD Unavailable + 54 Cruz Rodríguez MD Primary Care Provider [phone] Cruz Rodríguez MD Unavailable + 54 [place] GOLF TECHNICIAN Unavailable Trista Thao GOLF TECHNICIAN Unavailable [phone] Eliceo Beltran DO Primary Care Provider [phone] Eliceo Beltran DO Unavailable [phone] Encounter Details Date Type Department Care Team (Late st Contact Info) Description 04/23/2023 Abstract [facility] [place] Family Medicine [address] [place] [address] Cruz Rodríguez MD [address] [place] [address] Social History Tobacco Use Types Packs/Day Years [...] 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 [...] [address] [facility] [place] [address] Steph Keane, DEVYN [address] [facility] [place] [address] 09/07/2025 4:00 PM EDT Office Visit LANETTE MOODY [address] [facility] [address] [place], [phone] Nathan Pop DO [address] [facility] [address] [place], [place] [phone] documented as of this encounter Visit Diagnoses Not on filedocumented in this encounter Care Teams Grievance And Appeals Specialist Relationship Specialty Start Date End Date Cruz Rodríguez MD [address] [place] [address] PCP - [place] [employer] 09/26/2111/25 Cruz Rodríguez MD [address] [place] [address] PCP - General Family Medicine 04/10/23 02/13/24 Cruz Rodríguez MD [address] [place] [address] [address] - [facility] 02/24/23 4 Eliceo Beltran DO [address] [place] [address] PCP - General Family Medicine 02/14/24 Eliceo Beltran DO [address] [place] [address] PCP - Medical [place] [employer] 07/27/24 11/25/99 [facility] NP [address] [place] [address] Nurse Practitioner Family Medicine 10/05/23 04/14/24 Trista Thao GOLF TECHNICIAN [address] [place] [address] Nurse Practitioner Pulmonary Disease 10/05/23 04/14/24 documented as of this encounter
--- OUTSIDE RECORDS SUMMARY | 2025-08-29 10:37 | XMS_ITS | CCD ---
Author Organization [facility] Care Team Providers Care Manager Unix Name Role Phone Unavailable Unavailable OPAL LARA Referring Unavailable CRUZ RODRÍGUEZ Primary Care Unavailable OPAL LARA Referring Unavailable CRUZ RODRÍGUEZ Primary Care Unavailable CRUZ RODRÍGUEZ Primary Care Physician [phone] Domo Hodges Unavailable TONIA DIALLO Attending Unavailable RITU RYDER Admitting Unavailable RITU RYDER Attending Unavailable Cruz Rodríguez MD Primary Care Provider Cruz Rodríguez MD Unavailable Cruz Rodríguez MD Primary Care Provider [phone] Cruz Rodríguez MD Unavailable Kita INFECTIOUS DISEASES PHYSICIAN, Zenobia Unavailable Keesha INFECTIOUS DISEASES PHYSICIAN, Trista R Unavailable Cruz Rodríguez MD Primary [...] SRINIVASA Attending Unavailable Unavailable Primary Care Provider UnavailNay Gibbons DO Primary Care Provider NAY MALONEY Primary Care Physician Unavailab Cruz Ross MD Primary Care Provider [phone] Kiesha DO, Nathan Attending Provider [phone] Kiesha, Nathan Admitting Unavailable Kiesha, Nathan Attending Unavailable Cruz Rodríguez Primary Care Unavailable KIESHA, Nathan R Attending Unavailable KIESHA, Nathan R Referring Unavailable KIESHA, Nathan R Admitting Unavailable KIESHA, Nathan R Attending Unavailable KIESHA, Nathan R Admitting Unavailable Kaftan DO, Nay R Unavailable [phone] Yomaira BELTRAN Attending Unavailable KAFTAN, Yomaira COOPER Admitting Unavailable KIESHA, Nathan R Attending Unavailable KIESHA, Nathan R Admitting Unavailable KIESHA, Nathan R Admitting Unavailable KIESHA, Nathan R Attending Unavailable KAFTAN, Yomaira COOPER Admitting Unavailable KAFTAN, Yomaira COOPER Attending Unavailable KAFTANYomaira Admitting Unavailable KAFTAN, Yomaira COOPER Attending Unavailable KAFTAN, NAY Hurtado Attending Unavailable KIESHA, NATHAN Attending Unavailable KIESHA, NATHAN Attending Unavailable KIESHA, NATHAN Attending Unavailable KIESHA, NATHAN Attending Unavailable KIESHA, NATHAN Attending Unavailable KAFTAN, NAY R Attending Unavailable KIESHA, NATHAN Attending Unavailable MARBELLA KEANE Attending Unavailable MARBELLA KEANE Admitting Unavailable Cruz Rodríguez MD Primary Care Provider [phone] MARBELLA KEANE Attending Unavailable MARBELLA KEANE Admitting [...] Medication Allergies] Propensity to adverse reactions (disorder) [facility] Repository Medications Current Medications Medication Drug [...] Discontinued ascorbic acid 500 mg oral tablet (3 sources) Vitamin C Start: 10-25-2018 take 2 tablets by mouth in the morning ASCORBIC ACID WITH ISAURO HIPS 500 MG tablet Take 2 tablets (1,000 mg total) by mouth in the morning. 0 10/25/2018 Active aspirin 325 mg / butalbital 50 mg / caffeine 40 mg oral capsule (3 sources) Platelet Aggregation Inhibitor, Barbiturate, Nonsteroidal Anti-inflammatory [...] on e suppository vaginally daily at bedtime. Blood Glucose Monitoring Suppl (D-Care Glucometer) w/Device kit (6 sources) Start: 08-20-2025 End: 08-20-2026 Blood Glucose Monitoring Suppl (D-Care Glucometer) w/Device kit Indications: Gestational diabetes mellitus (GDM), antepartum, gestational diabetes method of control unspecified ([facility]) , Elevated glucose tolerance test 1 kit Daily Use four times daily to check FSBS. In the morning prior to breakfast & 1 hour after each meal for a total of 4times daily. 1 kit 08/20/2025 08/20/2026 Active cephalexin 500 mg oral capsule (6 sources) [...] 2019 8:18am cholecalciferol 0.125 mg oral capsule (3 sources) Vitamin D Start: 10-25-2018 take 1 [...] spasm, # 30 tab(s), Refills(s) 0, Pharmacy: [facility] 858, 157, cm, 01/23/22 7:20:00 EST, [...] 01/10/2024 04/09/2024 Active Ethinyl Estradiol / Norethindrone (5 sources) Estrogen Start: 12-01-2018 take 0.05 ug by mouth once in the evening norethindrone ac-eth estradiol (MICROGESTIN 12/15) 1-20 mg-mcg per tablet Take 1 tablet by mouth in the evening. 0 12/01/2018 Active Start: 11-23-2016 take 1 tablet by ghada th once daily Dasetta oral tablet 1 tab(s), [...] TAB PO Daily August 04, 2019 12:00am [place]-Linyah 0.25 -35 MG-MCG Oral for 28 Not-Taking [...] Quantity: 40.0 Unit: tab(s) Repeat number: 1 isopropyl alcohol 0.7 ml/ml medicated pad (6 sources) Start: 08-20-2025 Alcohol Swabs (Alcohol Prep Pad) 70 % pads Indications: Gestational diabetes mellitus (GDM), antepartum, gestational diabetes method of control unspecified ([facility]) , Elevated glucose tolerance test Apply 1 Pad topically Daily Use four times daily to check FSBS. 150 each 3 08/20/2025 Active iv contrast (will be provided with radiology [...] link. labetalol hydrochloride 100 mg oral tablet (17 sources) beta-Adrenergic Negro Start: 07-30-2025 End: 07-30-2026 [...] Pull magnesium oxide 400 mg oral tablet (7 sources) Start: 05-01-2025 End: 05-31-2025 take 1 tablet by mouth once daily magnesium oxide (Mag-Ox) 400 MG tablet Indications: headache in first trimester ([facility]) Take 1 tablet (400 mg) by mouth Daily 30 tablet 3 05/01/2025 05/31/2025 Active meloxicam 15 mg oral tablet (13 sources) Nonsteroidal Anti-inflammatory Drug Start: 02-02-2021 End: [...] day, # 14 tab(s), Refills(s) 0, Pharmacy: [facility] 858, 157, cm, 03/04/21 7:22:00 [...] (5 sources) Dihydropyridine Calcium Channel Negro Start: End: NIFEdipine XL (Procardia XL) 30 MG 24 hr tablet Take 1 tablet (30 mg) by mouth daily. Do not crush, chew, or split. Do not start before December 02, 2022. 90 tablet 0 12/02/2022 12/02/2023 Active norethindrone acetate 5 mg oral tablet (20 sources) Start: 023 End: take 2 tablets by mouth once [...] once daily. Take 2 tablets by mo [facility] once daily. PNV no.95-ferrous fumarate-FA () 28 mg iron- 800 mcg tablet (3 sources) take 1 tablet by mouth in [...] Vit-Fe Fumarate-FA ( Vitamins) 28-0.8 MG tablet (20 sources) Start: 05-01-2025 End: 05-01-2026 take 1 tablet by mouth once daily Vit-Fe Fumarate-FA ( Vitamins) 28-0.8 MG tablet Indications: , unspecified gestational age ([facility]) , Encounter for supervision of normal first in first trimester ([facility]) Take 1 tablet by mouth Daily 30 tablet 11 05/01/2025 05/01/2026 Active Start: 05-01-2025 End: 05-01-2026 take 1 tablet by mouth once daily Vit-Fe Fumarate-FA ( Vitamins) 28-0.8 MG tablet Indications: , unspecified gestational age , Encounter for supervision of normal first in first trimester Take 1 tablet by mouth Daily 30 tablet 11 05/01/2025 05/01/2026 Active rizatriptan 5 mg disintegrating oral tablet (3 sources) Serotonin-1b and Serotonin-1d Receptor Agonist Start: 10-24-2018 rizatriptan HYDROLOGIST (MAXALT-HYDROLOGIST) 5 mg disintegrating tablet Dissolve 1 tablet [...] b12 1 mg extended release oral tablet (3 sources) Vitamin B12 Start: 10-25-2018 take 1 [...] , Starting on [place]stance 11/30/22 at 0608, Apply [...] Pre-Delivery cetirizine hydrochloride 10 mg oral tablet (9 sources) Histamine-1 Receptor Antagonist Start: 06-09-2025 End: 06-09-2026 take 1 tablet by mouth once daily cetirizine (ZyrTEC ALLERGY) 10 MG tablet Indications: Allergy, sequela Take 1 tablet (10 mg) by mouth Daily 30 tablet 11 06/09/2025 07/15/2025 Discontinued chlordiazePOXIDE hydrochloride 5 mg [...] 04, 2019 8:19am take 1 capsule by [facility] once daily FLUoxetine (PROZAC) 10 mg capsule Take 10 mg by mouth once daily. 0 Active Comment on above: Take 10 mg by mouth once daily. fluticasone propionate 0.05 mg/actuat metered dose nasal spray (8 sources) Corticosteroid Start: 5 End: 6 take [...] days, # 9 tab(s), Refills(s) 0, Pharmacy: [facility] 858, 157, cm, 03/04/21 7:22:00 [...] milk promethazine hydrochloride 12.5 mg oral tablet (11 sources) Phenothiazine Start: 05-25-2025 End: 07-15-2025 take [...] clean-u p per request of Phys. [facility] Anxiety disorders (20 sources) Anxiety; Translations: [Anxiety state, unspecified] Onset: 10-08-2020 10-08-2020 Chronic Comment on above: Problem List clean-u p per request of Phys. [facility] Cardiac dysrhythmias (20 sources) Paroxysmal tachycardia; Translations: [Paroxysmal tachycardia, unspecified] Onset: 03-29-2023 03-29-2023 Chronic Complications of surgical procedures or medical care (1 source) Postoperative retention of urine; Translations: [Other postprocedural complications and disorders of genitourinary system] 11-07-2023 Episodic Comment on above: Problem List clean-u p per request of Phys. [facility] Diabetes mellitus without complication (2 sources) Abnormal glucose tolerance test; Translations: [Other abnormal glucose] 08-12-2025 Episodic Diabetes or abnormal glucose tolerance complicating ; childbirth; or the puerperium (5 sources) Gestational diabetes mellitus; Translations: [Gestational diabetes mellitus [...] Hypertension complicating ; childbirth and the puerperium (14 sources) Severe pre-eclampsia complicating childbirth; Translations: [Severe [...] 02-19-2024 Chronic Other and delivery including normal (12 sources) ; Translations: [Encounter for supervision of [...] [24 weeks gestation of ] 08-12-2025 Episodic Residual codes; unclassified (2 sources) Gestation period, 26 weeks; Translations: [26 weeks gestation of ] 08-27-2025 Episodic Spondylosis; intervertebral disc disorders; other back [...] pelvic floor dysfunction] Onset: 08-24-2023 Episodic Other female genital disorders (6 sources) Chronic pelvic pain of female; Translations: [Chronic pelvic pain in female] Onset: 03-29-2023 03-29-2023 Episodic Other gastrointestinal disorders (20 sources) Swallowing painful; Translations: [Dysphagia, unspecified] Onset: 03-29-2023 03-29-2023 Episodic Other gastrointestinal disorders (20 sources) Diarrhea; Translations: [Diarrhea, unspecified] Onset: 03-24-2025 [...] Test Name Value Interpretation Reference Range Facility ALL CBC WITH AUTO DIFFon BASOPHILS ABSOLUTE AUTO 0.1 [facility] Basophils/100 WBC (Bld) 0.5 % 0.2 - 2.0 % [facility] Eosinophils/100 WBC (Bld) 1.4 % 0.9 - 7.0 % [facility] Erythrocyte distribution width (RBC) [Ratio] 13 % 11.0 - 15.0 % [facility] Hematocrit (Bld) [Volume fraction] 34.4 % Low 36.0 - 48.0 % [facility] Hemoglobin (Bld) [Mass/Vol] 11.3 g/dL Low 12.0 - 16.0 g/dL [facility] IMMATURE GRANULOCYTES ABS AUTO 0.59 High [facility] Immature granulocytes/100 WBC (Bld) 4.4 % High 0.0 - 0.5 % [facility] Interpretation and review of laboratory results Abnormal [facility] LYMPHOCYTES ABSOLUTE AUTO 2.4 [facility] Lymphocytes/100 WBC (Bld) 17.8 % Low 20.5 - 60.0 % [facility] MCH (RBC) [Entitic mass] 29.4 pg 26.7 - 34.0 pg [facility] MCHC (RBC) [Mass/Vol] 32.8 g/dL 29.9 - 35.2 g/dL [facility] MCV (RBC) [Entitic vol] 89.4 fL 81.0 - 99.0 fL [facility] MONOCYTES ABSOLUTE AUTO 1.1 High [facility] Monocytes/100 WBC (Bld) 8.1 % 1.7 - 12.0 % [facility] NEUTROPHILS ABSOLUTE AUTO 9 High [facility] Neutrophils/100 WBC (Bld) 67.8 % 43.0 - 75.0 % [facility] Platelet mean volume (Bld) [Entitic vol] 9.6 fL 9.5 - 13.5 fL [facility] EO # 0.2 [facility] TB PLT 270 [facility] RBC 3.85 Low [facility] WBC 13.3 High [facility] URINE T PROTEIN CREAT RA TIOon 08-27-2025 CREATININE URINE RANDOM <13.00 Low 20.00 - 300.00 mg/dL [facility] Interpretation and review of laboratory results Abnormal [facility] TOTAL PROTEIN URINE RANDOM <6.0 NINF - 11.9 mg/dL [facility] US OB BPP W NON-STRESS on 08-27-2025 [place] [address] Ultrasound Report Signed Patient: DRISS GAMA MR#: [id number] : 1995 Acct:[id number] Age/Sex: 30 / F ADM Date: Loc: [place] [address]: KUNAL HYATT M.D. Ordering Physician: Marbella Keane Date of Service: 08/27/25 Procedure(s): US OB BPP w non-stress Accession Number(s): [id number] cc: Marbella Keane; Yomaira BELTRAN [place] [address] Patient Name: DRISS GAMA MRN: [facility]:[id number] date: 1995 Sex: F Assigned Patient Location: LAB Current Patient Location: LAB Accession/Order Number: [id number] Exam Date: 08/27/2025 17:37 Report Date: 08/27/2025 18:02 At the request of: MARBELLA KEANE Procedure: US OB BPP w non-stress [...] Morillo M.D. 08/27/2025 6:02 PM Dictation Location: [employer] Electronically authenticated by: [id number] Y Date: 08/27/2025 18:02 Dictated By: Jp Morillo D.O. Signed By: 08/27/251804 DD/ 01 TD/TT: Clay Worker: [facility] Radiology, Radiologandra yo MD - 08/27/2025 [place] [address] Ultrasound Report Signed Patient: DRISS GAMA MR#: [id number] : 1995 Acct:[id number] Age/Sex: 30 / F ADM Date: Loc: [place] [address]- Attending Dr: KUNAL HYATT M.D. Ordering Physician: Marbella Keane Date of Service: 08/27/25 Procedure(s): US OB BPP w non-stress Accession Number(s): [id number] cc: Marbella Keane; Yomaira BELTRAN [place]EN[place] [address] Patient Name: DRISS GAMA MRN: [facility]:[id number] date: 1995 Sex: F Assigned Patient Location: LAB Current Patient Location: LAB Accession/Order Number: [id number] Exam Date: 08/27/2025 17:37 Report Date: 08/27/2025 18:02 At the request of: MARBELLA KEANE Procedure: US OB BPP w non-stress [...] Morillo M.D. 08/27/2025 6:02 PM Dictation Location: [employer] Electronically authenticated by: [id number] Y Date: 08/27/2025 18:02 Dictated By: Jp Morillo D.O. Signed By: 08/27/251804 DD/ 01 TD/TT: Clay Worker: [facility] Radiology Study observation (narrative) [facility] US OB BPP W NON-STRESS Ordered By: Radiologist Radiology on 08-27-2025 [facility] Work Phone: Urinalysis macro (dipstick) panel (U)on 08-27-2025 Bilirubin, UA Negative Negative - 4(70) +++ mg/dL [facility] Blood, UA Negative Negative - 50 Teodoro/mcL [facility] Clarity, UA Clear [facility] Color, UA Yellow [facility] Glucose, UA Negative Negative - 2000(110) ++++ mg/dL [facility] Interpretation and review of laboratory results Normal [facility] Ketones, UA Negative Negative - 160(16) ++++ mg/dL [facility] Leukocytes, UA Negative Negative - 500+++ Robinson/mcL [facility] Nitrite, UA Negative Negative - Positive [facility] pH, UA 6 5 - 9 [facility] Protein, UA Negative Negative - 2000(20) ++++ mg/dL [facility] Spec Grav, UA 1.015 1 - 1.03 [facility] Urobilinogen, UA 2.0 0.2 - 12 mg/dL [facility] URINE CULTURE, ROUTINEon Bacteria identified Cx Nom (U) Urine Culture, Routine [facility] Bacteria identified Cx Nom (U) Mixed urogenital robert [facility] Bacteria identified Cx Nom (U) 25,000-50,000 colony forming units per mL [facility] Bacteria identified Cx Nom (U) Performed at: - [facility] Bacteria identified Cx Nom (U) [address], [place] [id number] [facility] Bacteria identified Cx Nom (U) Plant Quality Manager: Cm Sandoval PhD, Phone: [phone] [facility] 2nd hr Glucose Tolerance 100 gm loadon 08-15-2025 Glucose Tolerance Test 2 Hour 169 [facility] Capillary Glucose POCon 07-28 Glucose [Mass/Vol] 88 mg/dL Normal 55-99 [facility] Comment on above: Performed By: #### 2 [id number] #### [facility] [address] [place] [address] Glu 1 Hron 08-15-2025 Glucose [Mass/Vol] 152 mg/dL Normal 55-180 [facility] Comment on above: Performed By: #### 2 [id number] #### [facility] [address] [place] [address] Glu 2 Hron 08-15-2025 Glucose [Mass/Vol] 169 mg/dL High 55-155 [facility] Comment on above: Performed By: #### 2 [id number] #### [facility] [address] [place] [address] Glu 3 Hron 08-15-2025 Glucose [Mass/Vol] 141 mg/dL High 55-140 [facility] Comment on above: Performed By: #### 2 [id number] #### [facility] [address] [place] [address] Glu Fastingon 08-15-2025 Glucose [Mass/Vol] 82 mg/dL Normal 55-99 [facility] Comment on above: Performed By: #### 2 [id number] #### [facility] [address] [place] [address] Glucose tolerance, 1 houron 08-15-2025 Glucose Tolerance Test 1 Hour 152 [facility] Glucose tolerance, 3 hourson 08-15-2025 Glucose Tolerance Test [address] [facility] Glucose, tolerance fastingon 08-15-2025 Glucose Tolerance Test Fasting 82 [facility] No Panel Informationon 08-15 [facility] CBC w/ Auto Diffon 5 Basophil Absolute 0.1 E9/L Normal 0.0-0.2 [facility] Comment on above: Performed By: #### 2 [id number] #### [facility] [address] [place] [address] Basophils/100 WBC (Bld) 0.6 % Normal 0.0-2.0 [facility] Comment on above: Performed By: #### 2 [id number] #### [facility] [address] [place] [address] Eos Absolute 0.1 E9/L Normal 0.0-0.5 [facility] Comment on above: Performed By: #### 2 [id number] #### [facility] [address] [place] [address] Eosinophils/100 WBC (Bld) 1.0 % Normal 0.0-8.0 [facility] Comment on above: Performed By: #### 2 [id number] #### [facility] [address] [place] [address] Erythrocyte distribution width (RBC) [Ratio] 12.9 % Normal 10.9-14.2 [facility] Comment on above: Performed By: #### 2 [id number] #### [facility] [address] [place] [address] Hematocrit (Bld) [Volume fraction] 33.1 % Low 34.0-46.0 [facility] Comment on above: Performed By: #### 2 [id number] #### [facility] [address] [place] [address] Hemoglobin (Bld) [Mass/Vol] 11.4 g/dL Low 12.0-16.0 [facility] Comment on above: Performed By: #### 2 [id number] #### [facility] [address] [place] [address] Lymph Absolute 2.0 E9/L Normal 1.0-4.0 [facility] Comment on above: Performed By: #### 2 292823 #### [facility] [address] [place] [address] Lymphocytes/100 WBC (Bld) 19.6 % Normal 14.0-50.0 [facility] Comment on above: Performed By: #### 2 688751 #### [facility] [address] [place] [address] MCH (RBC) [Entitic mass] 29.9 pg Normal 27.0-34.0 [facility] Comment on above: Performed By: #### 2 [id number] #### [facility] [address] [place] [address] MCHC (RBC) [Mass/Vol] 34.4 g/dL Normal 31.4-36.0 [facility] Comment on above: Performed By: #### 2 [id number] #### [facility] [address] [place] [address] MCV (RBC) [Entitic vol] 86.7 fL Normal 80.0-100.0 [facility] Comment on above: Performed By: #### 2 527232 #### [facility] [address] [place] [address] [place] Absolute 0.5 E9/L Normal 0.2-1.0 [facility] Comment on above: Performed By: #### 2 675935 #### [facility] [address] [place] [address] Monocytes/100 WBC (Bld) 4.6 % Normal 4.0-14.0 [facility] Comment on above: Performed By: #### 2 [id number] #### [facility] [address] [place] [address] Neutro Absolute 7.5 E9/L Normal 2.0-7.5 [facility] Comment on above: Performed By: #### 2 [id number] #### [facility] [address] [place] [address] Neutro Auto 74.2 % Normal 36.0-75.0 [facility] Comment on above: Performed By: #### 2 [id number] #### [facility] [address] [place] [address] Platelet 294.0 E9/L Normal 150.0-500.0 [facility] Comment on above: Performed By: #### 2 [id number] #### [facility] [address] [place] [address] Platelet mean volume (Bld) [Entitic vol] 8.1 fL Normal 6.4-10.8 [facility] Comment on above: Performed By: #### 2 714136 #### [facility] [address] [place] [address] RBC 3.8 E12/L Low 4.3-5.9 [facility] Comment on above: Performed By: #### 2 [id number] #### [facility] [address] [place] [address] WBC 10.1 E9/L Normal 4.0-11.0 [facility] Comment on above: Performed By: #### 2 [id number] #### [facility] [address] [place] [address] Ferritinon 08-12-2025 Ferritin Lvl 7 ng/mL Low 11-307 [facility] Comment on above: Performed By: #### 2 [id number] #### [facility] [address] [place] [address] Folateon 08-12-2025 Folate Lvl >22.3 Normal >=6.7 [facility] Comment on above: Performed By: #### 2 656211 #### [facility] [address] [place] [address] Gest Scr Glu 1 Hron 08-12-20 25 Glucose [Mass/Vol] 155 mg/dL High 55-140 [facility] Comment on above: Performed By: #### 3 [id number] #### [facility] [address] [place] [address] Glucose 1h post 50g loadon 0 08-12-2025 Glucose, 1 hr PP 50GM dose 155 [facility] Ironon 08-12-2025 Iron 55 microgram/dL Normal 35-153 [facility] Comment on above: Performed By: #### 2 [id number] #### [facility] [address] [place] [address] No Panel Informationon 08-12 [facility] TIBC Calculatedon 08-12-2025 TIBC 637 microgram/dL High 250-400 [facility] Comment on above: Performed By: #### 1 [id number] #### [facility] [address] [place] [address] Transferrin [Mass/Vol] 455 mg/dL High 200-370 [facility] Comment on above: Performed By: #### 1 [id number] #### [facility] [address] [place] [address] US OB LIMITED 1+ FETUSESon 0 08-12-2025 [...] UA Negative Negative - 4(70) +++ mg/dL [facility] Blood, UA Negative Negative - 50 Teodoro/mcL [facility] Clarity, UA Clear [facility] Color, UA Yellow [facility] Glucose, UA Negative Negative - 2000(110) ++++ mg/dL [facility] Interpretation and review of laboratory results Abnormal [facility] Ketones, UA Negative Negative - 160(16) ++++ mg/dL [facility] Leukocytes, UA Negative Negative - 500+++ Robinson/mcL [facility] Nitrite, UA Negative Negative - Positive [facility] pH, UA 6 5 - 9 [facility] Protein, UA Negative Negative - 2000(20) ++++ mg/dL [facility] Spec Grav, UA 1.01 1 - 1.03 [facility] Urobilinogen, UA 1.0 0.2 - 12 mg/dL [facility] Vit B12on 08-12-2025 Cobalamin (Vitamin B12) [Mass/Vol] 205 pg/mL Normal 50-1500 [facility] Comment on above: Performed By: #### 2 [id number] #### [facility] [address] [place] [address] CBC w/ Auto Diffon 5 Basophil Absolute 0.0 E9/L Normal 0.0-0.2 [facility] Comment on above: Performed By: #### 2 [id number] #### [facility] [address] [place] [address] Basophils/100 WBC (Bld) 0.2 % Normal 0.0-2.0 [facility] Comment on above: Performed By: #### 2 [id number] #### [facility] [address] [place] [address] Eos Absolute 0.1 E9/L Normal 0.0-0.5 [facility] Comment on above: Performed By: #### 2 599071 #### [facility] [address] [place] [address] Eosinophils/100 WBC (Bld) 0.5 % Normal 0.0-8.0 [facility] Comment on above: Performed By: #### 2 316382 #### [facility] [address] [place] [address] Erythrocyte distribution width (RBC) [Ratio] 13.0 % Normal 10.9-14.2 [facility] Comment on above: Performed By: #### 2 [id number] #### [facility] [address] [place] [address] Hematocrit (Bld) [Volume fraction] 31.9 % Low 34.0-46.0 [facility] Comment on above: Performed By: #### 2 745106 #### [facility] [address] [place] [address] Hemoglobin (Bld) [Mass/Vol] 11.1 g/dL Low 12.0-16.0 [facility] Comment on above: Performed By: #### 2 [id number] #### [facility] [address] [place] [address] Lymph Absolute 2.1 E9/L Normal 1.0-4.0 [facility] Comment on above: Performed By: #### 2 355283 #### [facility] [address] [place] [address] Lymphocytes/100 WBC (Bld) 16.2 % Normal 14.0-50.0 [facility] Comment on above: Performed By: #### 2 889543 #### [facility] [address] [place] [address] MCH (RBC) [Entitic mass] 29.9 pg Normal 27.0-34.0 [facility] Comment on above: Performed By: #### 2 [id number] #### [facility] [address] [place] [address] MCHC (RBC) [Mass/Vol] 34.8 g/dL Normal 31.4-36.0 [facility] Comment on above: Performed By: #### 2 [id number] #### [facility] [address] [place] [address] MCV (RBC) [Entitic vol] 85.7 fL Normal 80.0-100.0 [facility] Comment on above: Performed By: #### 2 [id number] #### [facility] [address] [place] [address] [place] Absolute 0.9 E9/L Normal 0.2-1.0 [facility] Comment on above: Performed By: #### 2 819505 #### [facility] [address] [place] [address] Monocytes/100 WBC (Bld) 7.0 % Normal 4.0-14.0 [facility] Comment on above: Performed By: #### 2 133005 #### [facility] [address] [place] [address] Neutro Absolute 9.7 E9/L High 2.0-7.5 [facility] Comment on above: Performed By: #### 2 838548 #### [facility] [address] [place] [address] Neutro Auto 76.1 % High 36.0-75.0 [facility] Comment on above: Performed By: #### 2 361039 #### [facility] [address] [place] [address] Platelet 307.0 E9/L Normal 150.0-500.0 [facility] Comment on above: Performed By: #### 2 449602 #### [facility] [address] [place] [address] Platelet mean volume (Bld) [Entitic vol] 8.0 fL Normal 6.4-10.8 [facility] Comment on above: Performed By: #### 2 126686 #### [facility] [address] [place] [address] RBC 3.7 E12/L Low 4.3-5.9 [facility] Comment on above: Performed By: #### 2 092143 #### [facility] [address] [place] [address] WBC 12.8 E9/L High 4.0-11.0 [facility] Comment on above: Performed By: #### 2 078517 #### [facility] [address] [place] [address] CMPon 08-01-2025 CO2 [Moles/Vol] 20 mmol/L Low 21-31 [facility] Comment on above: Performed By: #### 2 191356 #### [facility] [address] [place] [address] Anion gap [Moles/Vol] 16 mmol/L Normal 6-16 [facility] Comment on above: Performed By: #### 2 106363 #### [facility] [address] [place] [address] Albumin [Mass/Vol] 3.8 g/dL Normal 3.3-5.0 [facility] Comment on above: Performed By: #### 2 729014 #### [facility] [address] [place] [address] Albumin/Globulin [Mass ratio] 1.3 {ratio} Normal 1.1-2.2 [facility] Comment on above: Performed By: #### 2 920491 #### [facility] [address] [place] [address] Alk Phos 78 Int._Unit/L Normal 21-98 [facility] Comment on above: Performed By: #### 2 042097 #### [facility] [address] [place] [address] ALT 21 Int._Unit/L Normal 6-46 [facility] Comment on above: Performed By: #### 2 999109 #### [facility] [address] [place] [address] AST 17 Int._Unit/L Normal 5-43 [facility] Comment on above: Performed By: #### 2 021777 #### [facility] [address] [place] [address] Bili Total 0.8 mg/dL Normal 0.0-1.1 [facility] Comment on above: Performed By: #### 2 995134 #### [facility] [address] [place] [address] BUN/Creat Ratio 18 No Units Normal 10-20 [facility] Comment on above: Performed By: #### 2 728853 #### [facility] [address] [place] [address] Calcium [Mass/Vol] 8.9 mg/dL Normal 8.9-11.1 [facility] Comment on above: Performed By: #### 2 406790 #### [facility] [address] [place] [address] Chloride [Moles/Vol] 104 mmol/L Normal 101-111 [facility] Comment on above: Performed By: #### 2 326020 #### [facility] [address] [place] [address] Creatinine [Mass/Vol] 0.6 mg/dL Normal 0.5-1.3 [facility] Comment on above: Performed By: #### 2 481646 #### [facility] [address] [place] [address] Globulin (S) [Mass/Vol] 3.0 g/dL Normal 1.4-4.0 [facility] Comment on above: Performed By: #### 2 804202 #### [facility] [address] [place] [address] Glucose [Mass/Vol] 92 mg/dL Normal 55-199 [facility] Comment on above: Performed By: #### 2 539651 #### [facility] [address] [place] [address] Potassium [Moles/Vol] 3.7 mmol/L Normal 3.5-5.3 [facility] Comment on above: Performed By: #### 2 562312 #### [facility] [address] [place] [address] Protein [Mass/Vol] 6.8 g/dL Normal 6.0-7.8 [facility] Comment on above: Performed By: #### 2 588024 #### [facility] [address] [place] [address] Sodium [Moles/Vol] 136 mmol/L Normal 135-145 [facility] Comment on above: Performed By: #### 2 780919 #### [facility] [address] [place] [address] Urea nitrogen [Mass/Vol] 11 mg/dL Normal 5-21 [facility] Comment on above: Performed By: #### 2 179752 #### [facility] [address] [place] [address] Lipid Panelon 08-01-2025 Cholesterol [Mass/Vol] 239 mg/dL High 120-200 [facility] Comment on above: Performed By: #### 2 516108 #### [facility] [address] [place] [address] Cholesterol in HDL [Mass/Vol] 88 mg/dL Invalid Interpretation Code [facility] Comment on above: Result Comment: '>= 60 LOW RISK' '<= 40 HIGH RISK' Performed By: #### 2 602040 #### [facility] [address] [place] [address] Cholesterol in LDL [Mass/Vol] 144 mg/dL High <=129 [facility] Comment on above: Performed By: #### 2 124349 #### [facility] [address] [place] [address] Cholesterol in VLDL [Mass/Vol] 40 mg/dL Normal 7-40 [facility] Comment on above: Performed By: #### 2 716666 #### [facility] [address] [place] [address] Triglyceride [Mass/Vol] 202 mg/dL High <=149 [facility] Comment on above: Performed By: #### 2 983879 #### [facility] [address] [place] [address] eGFRon 08-01-2025 eGFR 123 mL/min/1.73 m2 Normal >=59 [facility] Comment on above: Performed By: #### 1 [id number] #### [facility] [address] [place] [address] AFP, SERUM, OPEN SPINA BIFID Aon 07-18-2025 AFP MOM 0.95 . [facility] AFP VALUE 59.2 ng/mL . [facility] COMMENT: Comment . [facility] Comment on above: Amy Ramos , Ph.D., [facility] Director References: Available Upon Request. Multiples Of Median Cutoffs For AFP Elevations Hsieh 2.5 Black 2.8 IDD 2.0 Twins 4.5 Abbreviation Definitions IDD - Insulin Dep Diabetes OSBR - Open Spina Bifida Risk For further inquiries contact [employer] [facility] at [phone]. This test was developed and its performance characteristics determined by [facility]. It has not been cleared or approved by the Food and Drug Administration. Performed at: [facility] [address] [place], [place] [id number] Plant Quality Manager: Dona Justin [facility], Phone: [phone] GEST. AGE ON COLLECTION DATE 20.6 . weeks [facility] GESTAT. AGE BASED ON LMP . [facility] Comment on above: Recalculations are n ot recommended when gestational dating by LMP and ultrasound are within 10 days. INSULIN DEP DIABETES No . [facility] INTERPRETATION Comment . [facility] Comment on above: Interpretation: Scre en Negative [...] Customer Services to discuss available options. The [employer] recommends amniocentesis be offered to women age 35 and older. [age] [facility] MULTIPLE GESTATION No . [facility] [place] [address] . [facility] RACE . [facility] RESULTS Report . [facility] TEST RESULTS: Negative . [facility] WEIGHT 146 . lbs [facility] N N LMP [id number] 2 17 N 1 Y 146 N N N N N White/ [facility] US OB 14+ WEEKS ANATOMY SCAN on [...] II, MD, PHD at 16-Jul-2025 08:07:07 AM [facility] Normal Not Available Comment on above: Order Comment: US OB ANATOMY SINGLE W US OB CERVICAL LENGTH Estimated Date of Delivery: 11/28/25 Gestational Age as of 06/22/2025: 17w2d Urinalysis macro (dipstick) panel (U)on 07-15-2025 Bilirubin, UA Negative Negative - 4(70) +++ mg/dL [facility] Blood, UA Negative Negative - 50 Teodoro/mcL [facility] Clarity, UA Clear [facility] Color, UA Yellow [facility] Glucose, UA Negative Negative - 1999(110) ++++ mg/dL [facility] Interpretation and review of laboratory results Normal [facility] Ketones, UA Negative Negative - 160(16) ++++ mg/dL [facility] Leukocytes, UA Negative Negative - 500+++ Robinson/mcL [facility] Nitrite, UA Negative Negative - Positive [facility] pH, UA 6 5 - 9 [facility] Protein, UA Negative Negative - 2000(20) ++++ mg/dL [facility] Spec Grav, UA 1.01 1 - 1.03 [facility] Urobilinogen, UA 1.0 0.2 - 12 mg/dL [facility] RECURRENT VAGINITIS (HTRX)on 06-24-2025 ATOPOBIUM VAGINAE 0 [facility] ATOPOBIUM VAGINAE Not detected [facility] BVAB 2,3 (BACTERIAL VAGINOSIS ASSOCIATED BACTERIA 2, 3); MOBILUNCUS SPP 0 [facility] BVAB 2,3 (BACTERIAL VAGINOSIS ASSOCIATED BACTERIA 2, 3); MOBILUNCUS SPP Not detected [facility] RADHA ALBICANS, PARAPSILOSIS, TROPICALIS 0 [facility] RADHA ALBICANS, PARAPSILOSIS, TROPICALIS Not detected [facility] RADHA GLABRATA 0 [facility] RADHA GLABRATA Not detected [facility] KRUSEI 0 [facility] RADHA KRUSEI Not [facility] CHLAMYDIA TRACHOMATIS 0 [facility] CHLAMYDIA TRACHOMATIS Not detected N [facility] GARDNERELLA VAGINALIS 17.967 Abnormal [facility] GARDNERELLA VAGINALIS Detected Abnormal [facility] Interpretation and review of laboratory results Abnormal [facility] MEGASPHAERA (TYPES 1, 2) 0 [facility] MEGASPHAERA (TYPES 1, 2) Not detected [facility] MYCOPLASMA GENITALIUM 0 [facility] MYCOPLASMA GENITALIUM Not detected N [facility] NEISSERIA GONORRHOEAE 0 [facility] NEISSERIA GONORRHOEAE Not detected N [facility] TRICHOMONAS VAGINALIS 0 [facility] TRICHOMONAS VAGINALIS Not detected N [facility] Urinalysis macro (dipstick) panel (U)on 06-22-2025 Bilirubin, UA Negative Negative - 4(70) +++ mg/dL [facility] Blood, UA Negative Negative - 50 Teodoro/mcL [facility] Clarity, UA Clear [facility] Color, UA Yellow [facility] Glucose, UA Negative Negative - 1999(110) ++++ mg/dL [facility] Interpretation and review of laboratory results Normal [facility] Ketones, UA Negative Negative - 160(16) ++++ mg/dL [facility] Leukocytes, UA Negative Negative - 500+++ Robinson/mcL [facility] Nitrite, UA Negative Negative - Positive [facility] pH, UA 6 5 - 9 [facility] Protein, UA Negative Negative - 2000(20) ++++ mg/dL [facility] Spec Grav, UA 1.005 1 - 1.03 [facility] Urobilinogen, UA 1.0 0.2 - 12 mg/dL [facility] Urinalysis macro (dipstick) panel (U)on 05-25-2025 Bilirubin, UA Negative Negative - 4(70) +++ mg/dL [facility] Blood, UA Negative Negative - 50 Teodoro/mcL [facility] Clarity, UA Clear [facility] Color, UA Yellow [facility] Glucose, UA Negative Negative - 1999(110) ++++ mg/dL [facility] Interpretation and review of laboratory results Normal [facility] Ketones, UA Negative Negative - 160(16) ++++ mg/dL [facility] Leukocytes, UA Positive Negative - 500+++ Robinson/mcL [facility] Comment on above: small Nitrite, UA Negative Negative - Positive [facility] pH, UA 6.5 5 - 9 [facility] Protein, UA Negative Negative - 2000(20) ++++ mg/dL [facility] Spec Grav, UA 1.01 1 - 1.03 [facility] Urobilinogen, UA 0.2 0.2 - 12 mg/dL [facility] BOX TESTon 05-04-2025 BOX TEST SENT OUT [facility] BOX1 [facility] BOX2 05/04/25 [facility] CBC without diffon Hematocrit (Bld) [Volume fraction] 39.8 % [facility] Hemoglobin (Bld) [Mass/Vol] 13.2 g/dL [facility] Platelets (Bld) [#/Vol] 390 10*3/uL [facility] Rbc Mcv (Fl) By Automated Count 84.7 [facility] Drug Screen, Urineon 025 Amphetamine/Methamphet amine Negative [facility] Barbiturates Negative [facility] Benzodiazepines Negative [facility] Cocaine Metabolite Negative [facility] Methadone Negative [facility] Opiates Negative [facility] Oxycodone Negative [facility] Phencyclidine Negative [facility] Thc Marijuana, Urine Negative [facility] HBV surface Ag IA Qlon 05-04 Hepatitis B Surface Antigen Negative [facility] HCV Ab IA Qlon 05-04-2025 HCV Ab Ql (S) Non-Reactive [facility] HIV 1+2 Ab+HIV1 p24 Ag IA Ql on 05-04-2025 HIV 1&2 AB/AG Non-Reactive [facility] Hemoglobin A1con 05-04-2025 HbA1c (Bld) [Mass fraction] 5.3 % 4.0 - 6.0 % [facility] No Panel Informationon 05-04 [facility] Rubella IGG immune statusOrd ered By: Angeline Velasquez on 05-04-2025 Rubella immune IgG [facility] Type and screenon 05-04-2025 Abo/Rh(D) Positive [facility] HCG ( test) Ql (U)o n 05-01-2025 Interpretation and review of laboratory results Abnormal [facility] Preg Test, Ur Positive Negative [facility] OB TRANSVAGINALon [address] [place] [address] Ultrasound Report Signed Patient: DRISS COPE MR#: [id number] : 1995 Acct:[id number] Age/Sex: 30 / F ADM Date: 05/01/25 Loc: US Attending Dr: Nathan Pop D.O. Ordering Physician: Nathan Pop D.O. Date of Service: 05/01/25 Procedure(s): US OB transvaginal Accession Number(s): [id number] cc: Nathan Pop D.O.; Physician,Non-Staff M.DKaren [place] [address] Patient Name: DRISS COPE MRN: [id number] date: 1995 Sex: F Assigned Patient Location: US Current Patient Location: US Accession/Order Number: [id number] Exam Date: 05/01/2025 08:57 Report Date: 05/01/2025 [...] Faria M.D. 05/01/2025 9:01 AM Dictation Location: [place] [address] Electronically authenticated by: [id number] Y Date: 05/01/2025 09:01 Dictated By: Will Faria M.D. Signed By: 05/01/25903 DD/ 0 TD/TT: Clay Worker: [facility] Radiology, Radiologi MD srinath - 05/01/2025 [place] [address] Ultrasound Report Signed Patient: DRISS COPE MR#: [id number] : 1995 Acct:[id number] Age/Sex: 30 / F ADM Date: 05/01/25 Loc: US Attending Dr: Nathan Pop D.O. Ordering Physician: Nathan Pop D.O. Date of Service: 05/01/25 Procedure(s): US OB transvaginal Accession Number(s): [id number] cc: Nathan Pop D.O.; Physician,Non-Staff [place] [id number] Patient Name: DRISS COPE MRN: [facility]:[id number] date: 1995 Sex: F Assigned Patient Location: US Current Patient Location: US Accession/Order Number: [id number] Exam Date: 05/01/2025 08:57 Report Date: 05/01/2025 [...] Faria M.D. 05/01/2025 9:01 AM Dictation Location: [facility] Electronically authenticated by: [id number] Y Date: 05/01/2025 09:01 Dictated By: Will Faria M.D. Signed By: 05/01/25 0904 DD/ 0 TD/TT: Clay Worker: [facility] Radiology Study observation (narrative) [facility] US OB TRANSVAGINALOrdered By : Radiologist Radiology on 05-01-2025 [facility] Work Phone: Urinalysis macro (dipstick) panel (U)on 05-01-2025 Bilirubin, UA Negative Negative - 4(70) +++ mg/dL [facility] Blood, UA Negative Negative - 50 Teodoro/mcL [facility] Clarity, UA Clear [facility] Color, UA Yellow [facility] Glucose, UA Negative Negative - 1999(110) ++++ mg/dL [facility] Interpretation and review of laboratory results Normal [facility] Ketones, UA Negative Negative - 160(16) ++++ mg/dL [facility] Leukocytes, UA Negative Negative - 500+++ Robinson/mcL [facility] Nitrite, UA Negative Negative - Positive [facility] pH, UA 5.5 5 - 9 [facility] Protein, UA Negative Negative - 1999(20) ++++ mg/dL [facility] Spec Grav, UA 1.02 1 - 1.03 [facility] Urobilinogen, UA 1.0 0.2 - 12 mg/dL [facility] CHEMISTRYOrdered By: SYSTEM SYSTEM on 03-13-2025 Progesterone [...] Progesterone Lvl 31.35 ng/mL Invalid Interpretation Code [facility] Comment on above: Result Comment: 'F N ON FOLLICULAR = 0.10 - 0.60' 'LUTEAL = 3.00 - 17.5' 'MIDLUTEAL = 3.30 - 18.6' 'POST-MENOPAUSE = 0.10 - 0.40' '-FIRST TRIMESTER = 8.30 - 66.5' 'SECOND TRIMESTER = 18.9 - 66.1' 'THIRD TRIMESTER = 35.8 - 312.4' 'MALES = 0.14 - 2.06' Performed By: #### 2 [id number] #### [facility] [address] [place] [address] Progesteroneon 02-02-2025 Progesterone 0.2 ng/mL Normal . [facility] Comment on above: Result Comment: Foll icular phase 0.1 - 0.9 Luteal phase 1.8 - 23.9 Ovulation phase 0.1 - 12.0 First trimester 11.0 - 44.3 Second trimester 25.4 - 83.3 Third trimester 58.7 - 214.0 Postmenopausal 0.0 - 0.1 Performed at: - [facility] [id number] Plant Quality Manager: Cm Sandoval PhD, Phone: [phone] PERFORMED BY: [address] [place] [address] PATHOLOGIST FILLER PICKER ARNULFO THOMAS M.D. Performed By: #### P [...] MD Transcribed by: ELOISA Technologist: GIO Arroyo [facility] US Pelvis Non-OB Completeon 01-22-2025 US [...] Gonzalez MD Transcribed by: ELOISA Technologist: GIO Rivera [facility] IGP,APTIMA HPV,AGE GDLNon AGE GDLN ACOG TESTING Note . [facility] Comment on above: TESTS RESULT FLAG UN ITS REF RANGE LAB Clinician Provided Cytology Information Source.............Cervix;Endocervix No. of containers..01 ThinPrep Vial Age Algo ACOG Sarah... FLAG LEGEND: L-Low Normal,H-High Normal,LL-Alert Low,HH-Alert High <-Panic Low,>-Panic High,A-Abnormal,AA-Critical Abnormal Performed at: 01 =G [facility] [place] [address] Loren Oneal MD, IGP, RFX APTIMA HPV ASCU Note . [facility] Comment on above: TESTS RESULT FLAG UN ITS REF RANGE LAB DIAGNOSIS: 02 NEGATIVE FOR INTRAEPITHELIAL LESION OR MALIGNANCY. Specimen adequacy: 02 Satisfactory for evaluation. Endocervical and/or squamous metaplastic cells (endocervical component) are present. Performed by: 02 Pippa Calzada, Snagger ([facility]) . 02 Note: Note 02 The Pap [...] <-Panic Low,>-Panic High,A-Abnormal,AA-Critical Abnormal Performed at: [address] [address] Loren Oneal MD, Performed at: = - [facility] [address], [place] [id number] Plant Quality Manager: Loren Oneal MD, Phone: [phone] Performed at: - [facility] [id number] Plant Quality Manager: Loren Oneal MD, Phone: [phone] BRUSH-SPATULA CERVIX ENDOCERVIX [facility] 04-29-2024 [facility] Telephone ([facility]) ANATOLIYDRISS ([id number]) 1995 F Date Time Provider Department 04/29/24 CHARLENE RODRIGUEZ During your visit today, we recorded the following information about you: DeandraChrista thomas 04/29/2024 8:24 AM Signed Received message from [...] Encounter Status:Closed by CHRI[facility] GARCES [facility]29/24 [facility] DRISS COPE ([id number]) 1995 F Date Time Provider Department 04/25/24 CHARLENE RODRIGUEZ [facility] During your visit today, we recorded the following information about you: Anna De Leon 04/25/2024 1:10 PM Signed Pt got in sooner for surgery with her local order 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 Please cancel surgery and all pre and [...] Status:Closed by ANNA DE LEON on 04/25/24 [facility]ys [facility] DRISS COPE ([id number]) 1995 F Date Time Provider Department 12/12/23 CHARLENE RODRIGUEZ [facility] During your visit today, we recorded [...] Encounter Status:Closed by CHRISTA GARCES on 12/12/23 [facility] CNOVon 12-10-2023 CNOV Office Visit (GYMGME ) DRISS COPE ([id number]) 1995 F Date Time Provider Department 12/10/23 10:30 AM CHARLENE RODRIGUEZ During your visit today, we recorded the following information about you: Pulse Blood pressure Weight 98/minute 124/84 68.9 kg Charlene Rodriguez DO 12/10/2023 3:14 PM Signed [facility] SECTION FOR MINIMALLY INVASIVE GYNECOLOGIC SURGERY OUTPATIENT VISIT DATE 12/10/2023 OUTPATIENT VISIT TYPE Follow-up visit PRIMARY CARE PHYSICIAN: Cruz Rodríguez [address] [place] [address] REFERRING PHYSICIAN: Self CHIEF COMPLAINT: No chief complaint on file. HISTORY OF PRESENT ILLNESS: Driss Cope is a pleasant 28 year old female who presents for evaluation of pelvic pain. ========= MEGAN 07/16/23: IMPRESSION: Ms. Cpoe is a 28 year old female who [...] MRI: no evidence of Past Gynecologic History: Information Clerk History LMP: 07/08/2023 (Exact Date), Having periods Age at Menarche: 14 Age at First : 27 Age at Menopause: Information Clerk History Comments: Sexual Activity: Never; No [...] color, texture (more content not included)... Normal [facility] Cytology Cervical or vaginal smear or scraping studyon 08-15-2023 [facility] DRISS COPE ([id number]) 1995 F Date Time Provider Department 08/02/23 CHARLENE RODRIGUEZ [facility] During your visit today, we [...] Signed PA for orilissa completed via Cover [employer]. Driss Cope (Morales: [id number]) - [id number] Orilissa 150MG tablets Status: Sent To Plan [...] Fully Assessed Reason for Visit: Insurance Authorization [[id number]] Cmt: Orilissa Prescriptions as of 08/09/2023 - [...] Encounter Status:Closed by LESLEY LYNN on 08/02/23 [facility] CNOVon 07-16-2023 CNOV Office Visit (GYMGME ) DRISS COPE ([id number]) 1995 F Date Time Provider Department 07/16/23 11:30 AM CHARLENE RODRIGUEZ During your visit today, we recorded the following information about you: Blood pressure Last Period 136/90 07/08/23 Charlene Rodriguez DO 07/16/2023 12:41 PM Signed [facility] SECTION FOR MINIMALLY INVASIVE GYNECOLOGIC SURGERY OUTPATIENT VISIT DATE 07/16/2023 OUTPATIENT VISIT TYPE Follow-up visit PRIMARY CARE PHYSICIAN: Cruz Rodríguez [address] [place] [address] REFERRING PHYSICIAN: Cruz Rodríguez CHIEF COMPLAINT: No [...] additional bowel lesions identified Past Gynecologic History: Information Clerk History LMP: 07/08/2023 (Exact Date), Having periods Age at Menarche: 14 Age at First : 27 Age at Menopause: Information Clerk History Comments: Sexual Activity: Never; No [...] BOLD Cons (more content not included)... Normal [facility] MRI FEMALE PELVIS WO/W IVCON on 06-12-2023 MRI FEMALE PELVIS WO/W IVCON * * *Final Report* * * DATE OF EXAM: Jun 12 2023 2:47PM [facility] 0713 - MRI FEMALE PELVIS WO/W [...] additional findings. IMPRESSION: No deep infiltrating endometriosis. Clay Worker: DAVID Transcribe Date/Time: Jun 12 2023 2:54P Dictated by : ASHLEY DUKE MD This examination was interpreted and the report reviewed and electronically signed by: SONIDO FLAHERTY MD on Jun 12 2023 4:51PM EST [id number] Normal [facility] CNP[facility] Telephone (GYNMN) DRISS COPE ([id number]) 1995 F Date Time Provider Department 05/11/23 CHARLENE RODRIGUEZ GYNMN During your visit today, we recorded the following information about you: Tawana [facility]Kenton [facility] 05/11/2023 1:21 PM Signed Reason for call: [...] Takes aygestin 5mg daily. She did not pear picker flexeril. Encourage to pear picker the flexeril as this will help with the cramping. Reviewed red flag bleeding symptoms that require trip to ER (soaking greater than one overnight pad per hour, chest pain, shortness of breath, fatigue, palpitations).. Advised keep appt. Gives verbal understanding. Appointments for Next 60 Days Date Time Provider Location Dept Phone 05/17/2023 1:00 PM CHARLENE RODRIGUEZ [facility] [phone] Christa Suárez RN Allergies As of Date: 05/11/2023 (No Known Allergies) Date Reviewed: 05/09/2023 Reviewed by: Srinivasa Downs APRN.ALTERNATIVE ENERGY ENGINEER - Fully Assessed Reason for Visit: Vaginal [...] Encounter Status:Closed by CHRISTA WILLINGHAM on 05/11/23 [facility] CNOVon 05-01-2023 CNOV Office Visit (WHICCP ) DRISS COPE ([id number]) 1995 F Date Time Provider Department 05/01/23 10:30 AM SRINIVASA DOWNS During your visit today, we recorded the following information about you: Blood pressure Weight Height Last Period 148/64 64.9 kg 1.575 m 04/22/23 Srinivasa Downs APRN.CNP 05/09/2023 11:46 AM Signed Driss Cope is a 28 year old female who presents for problem visit for pain HPI: Pain is week before period and week of period. Worse on her period for every day she's bleeding Urinary - No symptoms GI - Always constipated. No meds Pritchett - painful always Pain is on left [...] L0 SAB0 IAB0 Ectopic0 Multiple0 Live Births0 Information Clerk History LMP: 03/26/2023 (Approximate), Having periods Age at Menarche: Age at First : Age at Menopause: Information Clerk History Comments: Sexual Activity: Never; No [...] physical therapy - or can go locally [facility] Trial flexeril at bedtime Can consider Baclofen [...] physical therapy - or can go locally [employer] Trial flexeril at bedtime Can consider Baclofen suppositories - let me know if you want to trial after you go to PT Contin (more content not included)... Normal [facility] CHEMISTRYOrdered By: SYSTEM SYSTEM on 01-31-2023 [...] mL/min/1.73 m2 Normal >=59mL/min/ 1.73 m2 [facility] Chem S Globulin (S) [Mass/Vol] 3.6 g/dL [...] (Bld) Present (01/31/23 2:10 PM) Normal [facility] HemeManSS Erythrocyte distribution width (RBC) [Ratio] 15.8 % High 10.9 - 14.2 % FT HemeAutoSS Hematocrit (Bld) [Volume fraction] 31.7 % Low 34.0 - 46.0 % FT HemeAutoSS Hemoglobin (Bld) [Mass/Vol] 9.8 g/dL Low 12.0 - 16.0 gm/dL FT HemeAutoSS Hypochromia Auto Ql (Bld) Present (01/31/23 2:10 PM) Normal [facility] HemeManSS MCH (RBC) [Entitic mass] 22.8 pg Low 27.0 - 34.0 pg FT HemeAutoSS MCHC (RBC) [Mass/Vol] 30.9 g/dL Low 31.4 - 36.0 gm/dL FT HemeAutoSS MCV (RBC) [Entitic vol] 73.9 fL Low 80.0 - 100.0 fL FT HemeAutoSS Morphology Blair (Bld) [Interp] See Morphology (01/31/23 2:10 PM) Normal [facility] HemeManSS Platelet mean volume (Bld) [Entitic vol] [...] Normal 14.0 - 50.0 % FT HemeAutoSS Lymphocytes/Leukocytes Auto (Bld) [Pure # fraction] [...] 4.3 E9/L Normal 2.0 - 7.5 E9/L FT HemeAutoSS SEROLOGYOrdered By: Eleonora Newton on 01-31-2023 HCG.beta subunit (U) [Moles/Vol] Negative Normal FT [facility] Sero URINALYSISOrdered By: Solomon flores on [...] PM) Normal Negative [facility] UA Auto SS [place].plasma/[place] .RBC (Bld) [Mass ratio] 0-3 /HPF Normal [...] Desc Clean Catch (01/31/23 1:57 PM) Normal FT UA Auto SS Urobilinogen Qn (U) 0.9649518 {Aspen'U}/dL Normal 0.0 - 1.0 EU/dL [facility] UA Auto SS WBC Auto Ql (U) Negative (01/31/23 1:57 PM) Normal Negative FT UA Auto SS WBC LM.HPF (Urine sed) [#/Area] 0-5 /HPF Normal 0-5/HPF [facility] Auto SS BLOOD BANKOrdered By: Teena Quiroz on 12-30-2022 ABO/Rh Interp Positive Invalid Interpretation Code [facility] BB Subsection ABSC Gel Interp Negative (12/30/22 11:28 AM) Normal [facility] BB Subsection CHEMISTRYOrdered By: SYSTEM SYSTEM on [...] mL/min/1.73 m2 Normal >=59mL/min/ 1.73 m2 [facility] Chem S GFR/1.73 sq M.predicted among non-blacks MDRD (S/P/Bld) [Vol rate/Area] mL/min/1.73 m2 Normal >=59mL/min/ 1.73 m2 [facility] Chem S Glucose [Mass/Vol] 105 mg/dL Normal 55 - 199 mg/dL FT Remisol Potassium [Moles/Vol] 3.8 mmol/L Normal 3.5 - 5.3 mmol/L [facility]isol Sodium [Moles/Vol] 137 mmol/L Normal 135 - 145 mmol/L [facility] Urea nitrogen [Mass/Vol] 17 mg/dL Normal 5 - 21 mg/dL [facility] Urea nitrogen/Creatinine [Mass ratio] 19 mg/mg [...] AM) Normal Negative [facility] UA Auto SS [place].plasma/[place] .RBC (Bld) [Mass ratio] 4-20 /HPF Normal 0-3/HPF [facility] UA Auto SS Nitrite Ql (U) Negative (12/30/22 8:53 AM) Normal Negative [facility] UA Auto SS pH (U) 6.0 *NA* (12/30/22 8:53 AM) Invalid Interpretation Code 5.0 - 9.0 FT [facility] Auto SS Protein (U) [Mass/Vol] Negative (12/30/22 8:53 AM) Normal Negative [facility] UA Auto SS Specific gravity (U) [Rel density] 1.025 *NA* (12/30/22 8:53 AM) Invalid Interpretation Code 1.005 - 1.030 FT UA Auto SS UA Spec Desc Clean Catch (12/30/22 8:53 AM) Normal [facility] Auto SS Urobilinogen Qn (U) 0.8444444 {Aspen'U}/dL Normal 0.0 - 1.0 EU/dL [facility] U[facility] Auto SS WBC Auto Ql (U) Negative (12/30/22 8:53 AM) Normal Negative [facility] Auto SS WBC LM.HPF (Urine sed) [#/Area] 0-5 /HPF Normal 0-5/HPF [facility] UA Auto SS Office Visiton 12-05-2022 Follow-up visit [id number] Aislinn Cope 1995 F Date Provider Department Center 12/05/2022 [id number], GINA MG [facility] WOM None Chart Close Cosign Required by: Opal Ross MD[MONGD] No family history on file Level of Service:10188 ND OFFICE/OUTPATIENT ESTABLISHED LOW MDM 20-29 MIN (GE,GC) Reason for Visit and Comments: Blood Pressure Check [299] Normal [facility] Progress Noteon 12-05-2022 Progress Note --- Attestation signed by Opal Ross MD at 12/05/2022 3:19 PM [facility]: This patient was seen in the [facility] by the resident. I reviewed [...] weeks (around 01/02/2023) for Visit . Normal [facility] Progress Note Vital signs BP 127/87 Weight 149.2lb Pulse 106 Temp 96.[address] [facility] Progress Noteon 12-02-2022 Progress Note Late [...] to discharge. Will make patient aware. Normal [facility] Progress Note VAGINAL DELIVERY POST DAY [...] Vanessa Zambrano DO 12/02/2022, 5:09 AM Normal [facility] 42on 12-01-2022 42 22.5mm flanges given to patient. Encouraged her to call for observation of pump session and smaller flanges. Martha in NICU to assist with personal pump. Normal [facility] CARECOORDon 12-01-2022 CARECOORD 27 year old [...] home. Denies any concerns at this time. [facility] Progress Noteon 12-01-2022 Progress Note NOTE [...] FVL+Prothrombin (heterozygous), Antithrombin III, APLS Assessment/Plan: Driss Anatoliy is PPD #1 s/p Care - Doing [...] with more than 50% of the total qxrh-ur-calq time of the visit in counseling/coordination of care. , 9:22 AM [facility] 42on 11-30-2022 42 Swabs given to patie nt and educated how to [facility] Breast pump use indicated for this pt. 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 Bowden; Dr. Kramer Information: Information for the patient's : Francie Coep [[id number]] Information for the patient's : Francie Cope [[id number]] Description: normal Meconium Noted: No Anesthesia: epidural [...] Status: No results found for: RUBELLAMILADYG Irina Kramer, 11/30/2022, 4:04 AM [facility] Progress Noteon 11-30-2022 Progress Note Chauhan catheter inser tank by Andi Bacon RN, catheter drained and emptied for 900cc. Catheter secured to leg. Normal [facility] Progress Note Patient up to bathro om but remains unable to void. Bladder scan completed and reads >570. Sent secure message to Dr. Ruiz letting her know the above. Instructed to place chauhan catheter. [facility] Progress Note Secure message sent to Dr. Gamez stating patient is having difficulty voiding, patient's perineum is very swollen, and that patient was straight cathed for 950ml at noon. Received order for benadryl to help with swelling. Normal [facility] Progress Note Nutrition rescreen completed. Chart reviewed. Patient to be monitored and followed by the diet general technician. CRISS Oshea [facility] Progress Note Patient unable to vo id, last straight cathed at 0400. Bladder scan obtained for >928 ml, fundus +2 and shifted to right. Patient straight cathed on attempt x2 by Andi Bacon RN for 950cc. Will continue to monitor. Normal [facility] CAREPLNon 11-29-2022 CAREPLN The patient will continue to make cervical change. Clotilde Mg RN [facility] Laboratory - Hematology and Cell countsOrdered By: Lucrecia Cervantes on 11-29-2022 Platelets (Bld) [#/Vol] 386 10*3/uL 140 - 440 10*3/uL [facility] Platelets (Bld) [#/Vol]Order ed By: Lucrecia Cervantes on 11-29-2022 Interpretation and review of laboratory results Normal [facility] S. agalactiae DNA TENA+probe Ql (Unsp spec)on 11-29-2022 Group B Strep Screen Not detected Not Detected [facility] Interpretation and review of laboratory results Normal [facility] Methodology: real-ti me PCR [facility] ABO and Rh group Confirm Nom (Bld)on 11-28-2022 ABO group Nom (Bld) O [facility] D Ag Ql (RBC) Positive [facility] Blood type and Crossmatch pa chitra (Bld)on 11-28-2022 ABO group Nom (Bld) O [facility] Blood group antibody screen GEL Ql Negative [facility] D Ag Ql (RBC) Positive [facility] CBC panel Auto (Bld)Ordered By: Lauren Ayers on 11-28-2022 Erythrocyte distribution width (RBC) [Ratio] 13.3 % 11.5 - 14.5 % [facility] Hematocrit (Bld) [Volume fraction] 33.8 % Low 35.0 - 47.0 % [facility] Hemoglobin (Bld) [Mass/Vol] 11.2 g/dL Low 11.7 - 16.0 g/dL [facility] Interpretation and review of laboratory results Abnormal [facility] MCH (RBC) [Entitic mass] 28.0 pg 26.0 - 34.0 pg [facility] MCHC (RBC) [Mass/Vol] 33.1 % 32.0 - 36.0 % [facility] MCV (RBC) [Entitic vol] 84.4 fL 80.0 - 98.0 fL [facility] Platelet mean volume (Bld) [Entitic vol] 8.3 fL 7.4 - 12.4 fL [facility] Platelets (Bld) [#/Vol] 319 10*3/uL 140 - 440 10*3/uL [facility] RBC (Bld) [#/Vol] 4.00 10*6/uL 3.8 - 5.20 10*6/uL [facility] WBC (Bld) [#/Vol] 18.9 10*3/uL High 3.6 - 10.7 10*3/uL [facility] Comprehensive metabolic 1998 panelon 11-28-2022 Albumin [Mass/Vol] 3.9 g/dL 3.5 - 5.0 g/dL [facility] ALP [Catalytic activity/Vol] 201 U/L High 38 - 126 U/L [facility] ALT [Catalytic activity/Vol] 15 U/L 0 - 34 U/L [facility] Anion gap [Moles/Vol] 7 mmol/L 3 - 13 mmol/L [facility] AST [Catalytic activity/Vol] 28 U/L 15 - 46 U/L [facility] Bilirubin [Mass/Vol] 0.9 mg/dL 0.2 - 1 .3 mg/dL [facility] Calcium [Mass/Vol] 8.2 mg/dL Low 8.4 - 10. 4 mg/dL [facility] Chloride [Moles/Vol] 109 mmol/L High 98 - 10 7 mmol/L [facility] CO2 [Moles/Vol] 17 mmol/L Low 22 - 30 mmol/L [facility] Creatinine [Mass/Vol] 0.53 mg/dL 0.52 - 1.04 mg/dL [facility] GFR/1.73 sq M.predicted MDRD (S/P/Bld) [Vol rate/Area] - PINF [facility] Comment on above: Calculation based on the Chronic Kidney Disease Epidemiology Collaboration (CKD-EPI) equation refit without adjustment for race Glucose [Mass/Vol] 158 mg/dL High 70 - 100 mg/dL [facility] Interpretation and review of laboratory results Abnormal [facility] Potassium [Moles/Vol] 4.1 mmol/L 3.5 - 5.1 mmol/L [facility] Protein [Mass/Vol] 7.5 g/dL 6.3 - 8.2 g/dL [facility] Sodium [Moles/Vol] 133 mmol/L Low 135 - 145 mmol/L [facility] Urea nitrogen [Mass/Vol] 5 mg/dL Low 7 - 17 mg/dL [facility] Laboratory - Hematology and Cell countsOrdered By: Shruthi Fontana on 11-28-2022 Platelets (Bld) [#/Vol] 335 10*3/uL 140 - 440 10*3/uL [facility] Platelets (Bld) [#/Vol]Order ed By: Shruthi Fontana on 11-28-2022 Interpretation and review of laboratory results Normal [facility] CHEMISTRYOrdered By: [employer] SYSTEM on 11-27-2022 Free T4 index Calc [...] PM) Normal Negative [facility] UA Auto SS [place].plasma/[place] .RBC (Bld) [Mass ratio] 4-20 /HPF Normal [...] [facility] UA Auto SS Urobilinogen Qn (U) 0.0486414 {Aspen'U}/dL Normal 0.0 - 1.0 EU/dL [facility] [...] mg/dL Normal 0.0 - 1 .1 mg/dL [facility] Bilirubin.direct [Mass/Vol] 0.1 mg/dL Normal 0.1 - 0.4 mg/dL [facility] Bilirubin.indirect [Mass or moles/Vol] 0.6 mg/dL [...] mL/min/1.73 m2 Normal >=59mL/min/ 1.73 m2 [facility] Chem S GFR/1.73 sq M.predicted among non-blacks MDRD (S/P/Bld) [Vol rate/Area] mL/min/1.73 m2 Normal >=59mL/min/ 1.73 m2 [facility] Chem S Globulin (S) [Mass/Vol] 3.3 g/dL [...] AM) Normal Negative [facility] UA Auto SS [place].plasma/[place] .RBC (Bld) [Mass ratio] 0-3 /HPF Normal [...] [facility] UA Auto SS Urobilinogen Qn (U) 0.0821117 {Aspen'U}/dL Normal 0.0 - 1.0 EU/dL [facility] [...] a) No falls within the last year [id number]-Lbo man 320 Work Phone: Last menstrual period start date unsure [id number]-[id number] man 320 Work Phone: Tobacco use status [facility] b) No EZ-XEHOX-Lby man 320 Work Phone: [employer] - Office Visiton 01-24 [employer] - Office Visit Diagnoses/Problems Assessed Endometriosis (617.9) (N80.9) Orders Start: Orilissa 200 MG Oral Tablet; take 1 tablet by mouth twice a day Provider Impressions 26 yo 1. 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 History of Present Yqxigbf75 yo presents as a follow up for [...] again engaged x 1 year working at [employer] in [place] Review of Systems Constitutional: no fever, no [...] hours Vitals Vital Signs Recorded: 09Feb2022 11:41AM Etmqcehn456 Jwugjofox56 Height5 ft 2 in Costeu630 lb BMI Nmjtaxwfga29.51 kg/m2 BSA Calculated1.61 Tobacco Useb) No Fall [...] Feb 09 2022 12:21PM EST (Author) Normal Butter XR KNEE LEFT (MIN 4 VIEWS)on 09-29-2021 [...] Tashi Lopez MD 09/29/21 Final result Normal [facility] [employer] - Office Visiton 07-0 [employer] - Office Visit Diagnoses/Problems Assessed Anxiety (300.00) (F41.9) Orders Start: FLUoxetine HCl - 20 MG Oral Capsule; TAKE 1 CAPSULE Daily Provider Impressions 26 yo 1. 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 History of Present Ftfwilb40 yo with endometriosis was on norethindrone d/c'd [...] hours Vitals Vital Signs Recorded: 02Jun2021 01:19PM Nwehmqyx857 Ldjxyywzz80 Height5 ft 2 in Clqytx577 lb BMI Hudzxidgco56.58 kg/m2 BSA Calculated1.53 Tobacco Useb) No Fall Screeninga) No falls within the last year [id number] Pain Scale0 Signatures Electronically signed by : Charlene Rodriguez DO; Jun 03 2021 10:55AM EST (Author) Normal [facility] Chlamydia sp identified Org specific cx Nom (Genital specimen)Ordered By: Jackleyn Dela Cruz on 05-16-2021 External Chlamydia Screen Negative Negative [facility] HBV surface Ag IA Qlon 05-16 External Hepatitis B Surface Ag Negative Negative, None Detected [facility] HIV 1+2 Ab and HIV1 p24 Ag I A.rapid Nom (S/P/Bld)on 05-16-2021 HIV-1/HIV-2 Ab Negative [facility] No Panel Informationon 05-16 External Gonorrhea Screen Negative Negative [facility] External Rubella IGG Quantitation Positive [facility] No Panel InformationOrdered By: Jackelyn Dela Cruz on 05-16-2021 [facility] Reagin Ab RPR Ql (S)on 05-16 External RPR Non-Reactive Borderline, Nonreactive , Weakly Reactive, Equivocal [facility] [employer] - Office Visiton 03-27 [employer] - Office Visit Diagnoses/Problems Assessed Endometriosis (617.9) (N80.9) Never smoker Orders Stop: Norethindrone Acetate 5 MG Oral Tablet Tobacco Use Screening; Status:Complete; Done: 20Apr2021 Provider Impressions 26 yo 1. 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 b) No MG-OBG YN-Ris man 320 Work Phone: Radiologyon 04-14-2021 US Kidney - bilateral Normal MP- Urology-L yjeant Work Phone: US RENAL BILATon 04-14-2021 US RENAL BILAT Patient Name: DRISS COPE STUDY: US RENAL BILAT; 04/14/2021 1:14 pm INDICATION: Recurrent UTI. COMPARISON: None. ACCESSION NUMBER(S): [id number] ORDERING CLINICIAN: NICHOLAS CHAU TECHNIQUE: Multiple images [...] Electronically signed by: GENEVIEVE BREEN MD Normal [facility] Office Visit (Urology)on Follow-up visit Diagnoses/Problems Assessed Recurrent UTI (599.0) (N39.0) Orders Recurrent UTI Start: Nitrofurantoin Monohyd Macro 100 MG Oral Capsule; TAKE 1 CAPSULE Other Please take one capsule after sexual intercourse to prevent UTI Rx By: Nicholas Chau; Dispense: 30 Days ; #:30 Capsule; Refill: 11;For: Recurrent UTI; ROSY = N; Verified Transmission to [place] [address] Ultrasound Kidney Bilateral; Status:Hold For - Scheduling; Requested for:01Apr2021; Perform:[facility]; Due:[id number]; Last Updated By:Isela Terrazas; 04/01/2021 9:16:17 AM;Ordered; [...] UTI; ROSY = N; Verified Transmission to [place] [address] Provider Impressions 26 year old female with history of endometriosis presents today via telehealth as a new patient for evaluation of recurrent UTIs. She reports getting UTIs at least once per month, noting occasional nocturia. Symptoms include burning, frequency, and back pain. She states that some UTIs are related to sexual intercourse but most are not. Patient reports she saw Dr. Booth at [facility] in [place], noting she was only treated with medications and urethral dilation for a supposed stricture. Denies gross hematuria. Patient is a non-smoker. Urine culture from [facility] on 03/04/21 was positive for E. [...] NPV - recurrent UTI History of Present Ngunpav6 year old female with history of endometriosis presents today via telehealth as a new patient for evaluation of recurrent UTIs. She reports getting UTIs at least once per month, noting occasional nocturia. Symptoms include burning, frequency, and back pain. She states that some UTIs are related to sexual intercourse but most are not. Patient reports she saw Dr. Booth at [facility] in [place], noting she was only treated with medications [...] affect. Signature (more content not included)... Normal Butter [place] GASTRIC EMPTYING SOLIDon 11-05-2020 NM GASTRIC EMPTYING SOLID * * *Final Report* * * DATE OF EXAM: Nov 05 2020 12:26PM [facility] 0017 - NM GASTRIC EMPTYING SOLID [...] 4 HOURS IS CONSISTENT WITH MILD GASTROPARESIS. Clay Worker: DAVID Transcribe Date/Time: Nov 05 2020 1:09P Dictated by : BRUNO PEREA MD This examination was interpreted and the report reviewed and electronically signed by: BRUNO PEREA MD on Nov 05 2020 1:24PM EST [id number] Normal [facility] ANES POSTPROC EVALon 020 ANES POSTPROC EVAL HNO ID: [id number] Author: Austin Story Service: ? Author Type: Anesthesiologist Type: Anesthesia Postprocedure Evaluation Filed: 10/25/2020 2:52 PM Note Text: POST ANESTHESIA EVALUATION NOTE : 1995 Procedure Summary Date: 10/25/20 Room / Location: ENDO 01 / ENDO Anesthesia Start: 1324 Anesthesia Stop: 1352 Procedures: COLONOSCOPY (N/A Colon Sigmoid) EGD (N/A Throat) Diagnosis: Gastroesophageal reflux disease without esophagitis Surgeons: David Arango) Aravind Responsible Provider: Austin Story Anesthesia Type: MAC [...] October 25, 2020 TIME: 2:52 PM CSN: [id number] [facility] ANES PRE-OPon 10-25-2020 ANES PRE-OP HNO ID: [id number] Author: Austin Story Service: ? Author Type: [...] October 25, 2020 TIME: 1:08 PM CSN: [id number] Normal [facility] SURGICAL PATHOLOGYon 020 SURGICAL PATHOLOGY Specimen originated from [facility] Specimen #: [id number] Submitting Physician: DAVID CRUZ MD FINAL DIAGNOSIS 1. Small bowel, biopsy (A) - Small bowel mucosa with no pathologic diagnostic abnormality; negative for celiac disease, granulomas and dysplasia. 2. Stomach, biopsy (B) - Gastric oxyntic-type mucosa with no pathologic diagnostic abnormality; see comment. /[facility] 10/26/2020 COMMENT 2. No microorganisms morphologically compatible [...] one cassette. Gross examination performed at [facility], [address] [place] [address] 10/25/2020 7:59:40 PM Date of Report: 10/26/2020 Date of Procedure: 10/25/2020 Date of Receipt: 10/25/2020 Submitted by: DAVID CRUZ MD Location: AVEN Diagnostic interpretation performed at [place] [address]. CLIA Number: [id number] Normal [facility] Reference Lab Comment on above: Performed By: #### S #### See report for performing lab information. SURGICAL PATHOLOGY Specimen originated from [facility] Specimen #: [id number] Submitting Physician: DAVID CRUZ MD FINAL DIAGNOSIS 1. Small bowel, biopsy (A) - Small bowel mucosa with no pathologic diagnostic abnormality; negative for celiac disease, granulomas and dysplasia. 2. Stomach, biopsy (B) - Gastric oxyntic-type mucosa with no pathologic diagnostic abnormality; see comment. /[facility] 10/26/2020 COMMENT 2. No microorganisms morphologically compatible [...] one cassette. Gross examination performed at [facility], [address] [place] [address] 10/25/2020 7:59:40 PM Date of Report: 10/26/2020 Date of Procedure: 10/25/2020 Date of Receipt: 10/25/2020 Submitted by: DAVID CRUZ MD Location: [facility] Diagnostic interpretation performed at [facility], [address] [place] [address]. [facility] Number: [id number] [facility] ABO/RH GROUP TESTon 09-01-20 ABO TYPE O Normal [facility] Comment on above: Performed By: #### V ERAB #### [facility] [address] [place] [address] RH TYPE Positive Normal [facility] Comment on above: Performed By: #### V ERAB #### [facility] [address] Surgical Pathology Dep artmenton 09-01-2020 [facility] Surgical Pathology Department Name DRISS COPE Pathologist: ASHLEY HURTADO MD Date of Procedure: 09/01/2020 Date Received: 09/01/2020 Date Reported 09/03/2020 Submitting Physician: CHARLENE RODRIGUEZ D.O. Location: [facility] External # FINAL DIAGNOSIS A. LEFT PELVIC [...] D. Right pelvic sidewall peritoneum are 2 [id number], irregular fragments of tissue measuring 1.3 x [...] submitted in toto in one cassette. SB /09/02/2020 [facility] Department of Pathology [address] [place] [address] Normal [facility] Comment on above: Performed By: #### A #### [facility] Surgical Pathology Department [address] [place] [address] History and Physical - Surge ry > [...] T&S: O+, COVID-19: negative OB Hx: None. Information Clerk Hx: As above. PMHx: endometriosis Surg Hx: diagnostic laparoscopy, appendectomy (2016) Meds: Meloxicam, Lunenburg-Linyah, Norethindrone acetate Social Hx: No tobacco, no [...] the note. I personally evaluated the patient [id number] Attending Provider Inpatient Certification StatementObservation patient/other outpatient visits Electronic Signatures: Charlene Rodriguez (DO) (Signed 01-Sep-2020 10:04) Authored: Note Completion Co-Signer: History of Present Illness, Home Medication Review, Impression/Procedure, ERAS, Physical Exam, Consent, Note Completion Chelsie Leal (Resident)) (Signed 31-Aug-2020 15:44) Authored: History of Present Illness, Home Medication Review, Impression/Procedure, ERAS, Physical Exam, Consent, Note Completion Last Updated: 01-Sep-2020 10:04 by Charlene Rodriguez () Normal [facility] Homegoing Instructionson Homegoing Instructions Additional Instructions: Handouts Given: Topic 1Anesthesia Homegoing Instructions Topic 2Surgical Site Infection Handout Topic 3New Medication Education Topic 4Suggamedex handout Electronic Signatures: Aminata GomezRN) (Signed 01-Sep-2020 16:07) Authored: Additional Instructions Last Updated: 01-Sep-2020 16:07 by Aminata Gomez) Normal [facility] Patient Profile - Preop v2on 09-01-2020 Patient Profile - Preop v2 Profile: Initial Info: How to be Addressedalexis Spoken Language PreferredEnglish Are you currently using the Personal Electronic Health Record or DividedCommun.it Stated Reason for Admissionseeing if my endometriosis is back Primary Contact Name and Numberlogan [phone] Patient Belongingsclothing locker glasses with bf Medications Brought to Hospitalno General Health: Weight in kg55.6 kilogram(s) Weight in szt979.5 pound(s) Weight Methodactual (measured) Scale Typestanding Height [...] Arrangementshouse Lives Withparent(s) Resource/Environmental Concernsnone Anticipated Transition To[place]ing[facility] Services Anticipated at Transitionnone Substance: Current or [...] Learning Preferencesverbal instruction Cultural Considerationsnone Developmental Considerationsnone Church Considerationsnone Other learner availableno Falls RiskPatient location auto qualifies him/her for HIGH RISK. Are there any cultural, spiritual, latter-day practices/values/needs that are important for us to [...] Surgery > 30 days 01-Sep-2020 03:42 Normal [facility] Preop Checkliston 09-01-2020 Preop Checklist Preop Checklist: Preop Checklist: Arrival [id number] Arrival Time12:30 Procedure Typelaparoscopic endometriosis excision NPO [id number] 00:00 ID Band Onyes Allergy Bandno known [...] 01-Sep-2020 12:35 by Sierra Kraft (RN) Normal [facility] ANTIBODY IDENT.on 08-31-2020 ANTIBODY IDENT. SEE BELOW Normal [facility] Comment on above: Result Comment: NO C LINICALLY SIGNIFICANT ANTIBODIES IDENTIFIED. Performed By: #### A BID #### [facility] [address] [place] [address] CBCon 08-30-2020 Erythrocyte distribution width (RBC) [Ratio] 12.1 % Normal 11.5 - 14.5 [facility] Comment on above: Performed By: #### C BC #### [address] [id number] Hematocrit (Bld) [Volume fraction] 39.6 % Normal 36.0 - 46.0 [facility] Comment on above: Performed By: #### C BC #### [address] [id number] Hemoglobin (Bld) [Mass/Vol] 12.6 g/dL Normal 12.0 - 16.0 [facility] Comment on above: Performed By: #### C BC #### [address] [id number] MCHC (RBC) [Mass/Vol] 31.8 g/dL Low 32.0 - 36.0 [facility] Comment on above: Performed By: #### C BC #### [address] [id number] MCV (RBC) [Entitic vol] 90 fL Normal 80 - 100 [facility] Comment on above: Performed By: #### C BC #### [address] [id number] Platelets (Bld) [#/Vol] 333 10*3/uL Normal 150 - 450 [facility] Comment on above: Performed By: #### C BC #### [facility] [address] [place], [place] [id number] RBC 4.42 x10E12/L Normal 4.00 - 5.20 [facility] Comment on above: Performed By: #### C BC #### [facility] [address] [place], [place] [id number] WBC (Bld) [#/Vol] 5.6 10*3/uL Normal 4.4 - 11.3 [facility] Comment on above: Performed By: #### C BC #### [facility] [address] [place], [place] [id number] CORONAVIRUS 2019, SCREEN ASY MPTOMATICon 08-30-2020 SARS-CoV-2 (COVID-19) RNA TENA+probe Ql (Unsp spec) Not detected Normal Not Detected [facility] Comment on above: Result Comment: This assay [...] patient management decisions. Fact sheet for providers: https://www.fda.gov/media/478049/download Fact sheet for patients: https://www.fda.gov/media/594000/download This test has received FDA Emergency Use Authorization (EUA) and has been verified by [facility] ([facility]). This test is only authorized for the duration of time that circumstances exist to justify the authorization of the emergency use of in vitro diagnostic tests for the detection of SARS-CoV-2 virus and/or diagnosis of COVID-19 infection under section 564(b)(1) of the Act, 21 U.S.C. 360bbb-3(b)(1), unless the authorization is terminated or revoked sooner. [facility] is certified under CLIA-88 as qualified to perform high complexity testing. Testing is performed in the [facility] laboratories [place] at [address] [place] [address]. Performed By: #### C OVSC #### [facility] [address] [facility] [place] [address] Lab Specimen Source Nasal, Nasopharyngeal Normal [facility] Comment on above: Performed By: #### C OVSC #### [facility] [address] [place] [id number] TYPE + SCREENon 08-30-2020 ABO TYPE O Normal [facility] Comment on above: Performed By: #### T +S #### [facility] [address] [place] [address] RH TYPE Positive Normal [facility] Comment on above: Performed By: #### T +S #### [facility] [address] [place] [address] ABO TYPE Canceled Normal [facility] Comment on above: Order Comment: TEST TYPE + SCREEN WAS CANCELLED, 08/30/2020 13:37 JOP. Performed By: #### T +S #### [facility] [address] [facility] [place] [place] [address] RH TYPE Canceled Normal [facility] Comment on above: Order Comment: TEST TYPE + SCREEN WAS CANCELLED, 08/30/2020 13:37 JOP. Performed By: #### T +S #### [facility] [address] [facility] [place] [place] [address] HOSPon 07-29-2020 HOSP Patient:Flavio Cope MRN: Height:5' [...] for the following basenames: K,HCT Progress Notes ([facility] REJ AV4): Jaquelin Wesley Jay 10/19/2020 [...] 1 10 oz. Bottle of Magnesium Citrate (Lemon/[place]) ? A test for COVID 19 test [...] toast without seeds (not multigrain); pretzels; waffles, Qatari toast and pancakes; white rice, noodles, pasta, macaroni, peeled cooked potatoes; Special K, Rice Krispies or [place] Flakes cereals; ripe bananas; melons (except watermelon [...] carbonated beverages such as chi aislinn or lemon-tribe soda; Gatorade? or other sports drinks (not [...] make sure you have a responsible adult driver's education instructor to take you home after procedure. Due to having sedation, you may not drive the rest of the day. ? If you need to reschedule, please call [phone] ?Date/Provider Dr Cruz Procedure:colonoscpy Facility:[facility] Prep ordered( if aware):miralax Knowledge of prep instructions:posted to [facility] Diabetic:no Blood Thinners:no Pacemaker with defibrillator:no left message for patient to return call. Nurse triage please give below message. PLEASE READ PATIENT INSTRUCTIONS BELOW. THANK YOU. Normal [facility] PROGRESSon 07-29-2020 PROGRESS HNO ID: [id number] Author: Fito Stapleton (Rt) Service: Radiology Author Type: Flame Cutting Supervisor Type: Progress Notes Filed: 07/29/2020 11:06 [...] July 29, 2020 11:01 AM [facility] XR ABD 2V SUPINE W UPR/DECUB /CTLon [...] structures are normal. No other significant abnormality. Clay Worker: PSCB Transcribe Date/Time: Jul 29 2020 11:19A Dictated by : LALI ORNELAS MD This examination was interpreted and the report reviewed and electronically signed by: LALI ORNELAS MD on Jul 29 2020 11:19AM EST [id number] [facility] Vital Signs Date Time Vital Sign Value Performing Clinician Facility 08-27-2025 15:37-0400 Body mass index (BMI) [Ratio] 29.23 kg/m2 Marbella Keane INFECTIOUS DISEASES PHYSICIAN Work Phone: [facility] 08-27-2025 15:37-0400 Body weight 72.48 kg Marbella Keane INFECTIOUS DISEASES PHYSICIAN Work Phone: [facility] 08-27-2025 15:37-0400 Diastolic blood pressure 92 mm[Hg] Marbella Keane INFECTIOUS DISEASES PHYSICIAN Work Phone: [facility] 08-27-2025 15:37-0400 Systolic blood pressure 158 mm[Hg] Marbella Keane INFECTIOUS DISEASES PHYSICIAN Work Phone: [facility] 08-24-2025 15:55-0400 Body mass index (BMI) [Ratio] 29.45 kg/m2 Teena Sarmiento RN Work Phone: [facility] 08-24-2025 15:55-0400 Body weight 73.03 kg Teena Sarmiento RN Work Phone: [facility] 08-12-2025 14:32-0400 Body mass index (BMI) [Ratio] 27.82 kg/m2 Nathan Kiesha DO Work Phone: [facility] 08-12-2025 14:32-0400 Body weight 69 kg Nathan Kiesha DO Work Phone: [facility] 08-12-2025 14:32-0400 Diastolic blood pressure 82 mm[Hg] Nathan Kiesha DO Work Phone: [facility] 08-12-2025 14:32-0400 Systolic blood pressure 138 mm[Hg] Nathan Kiesha DO Work Phone: [facility] 07-30-2025 15:36-0400 Body height 157.5 cm Nay Beltran DO Work Phone: [facility] 07-30-2025 15:36-0400 Body mass index (BMI) [Ratio] 27.62 kg/m2 Nay Beltran DO Work Phone: [facility] 07-30-2025 15:36-0400 Body temperature 97.11 [degF] Nay Beltran DO Work Phone: [facility] 07-30-2025 15:36-0400 Body weight 68.49 kg Nay Beltran DO Work Phone: [facility] 07-30-2025 15:36-0400 Diastolic blood pressure 68 mm[Hg] Nay Beltran DO Work Phone: [facility] 07-30-2025 15:36-0400 Heart rate 97 /min Nay Beltran DO Work Phone: [facility] 07-30-2025 15:36-0400 SaO2% (BldA) [Mass fraction] 98 % Nay Beltran DO Work Phone: [facility] 07-30-2025 15:36-0400 Systolic blood pressure 102 mm[Hg] Nay Beltran DO Work Phone: [facility] 07-15-2025 15:42-0400 Body mass index (BMI) [Ratio] 26.48 kg/m2 Nathan Kiesha DO Work Phone: [facility] 07-15-2025 15:42-0400 Body weight 65.68 kg Nathan Kiesha DO Work Phone: [facility] 07-15-2025 15:42-0400 Diastolic blood pressure 80 mm[Hg] Nathan Kiesha DO Work Phone: [facility] 07-15-2025 15:42-0400 Systolic blood pressure 120 mm[Hg] Nathan Kiesha DO Work Phone: [facility] 06-22-2025 14:33-0400 Body mass index (BMI) [Ratio] 26.73 kg/m2 Nathan Kiesha DO Work Phone: [facility] 06-22-2025 14:33-0400 Body weight 66.28 kg Nathan Kiesha DO Work Phone: [facility] 06-22-2025 14:33-0400 Diastolic blood pressure 74 mm[Hg] Nathan Kiesha DO Work Phone: [facility] 06-22-2025 14:33-0400 Systolic blood pressure 118 mm[Hg] Nathan Kiesha DO Work Phone: [facility] 05-25-2025 14:45-0400 Body mass index (BMI) [Ratio] 25.24 kg/m2 Nathan Kiesha DO Work Phone: [facility] 05-25-2025 14:45-0400 Body weight 62.6 kg Nathan Kiesha DO Work Phone: [facility] 05-25-2025 14:45-0400 Diastolic blood pressure 80 mm[Hg] Nathan Kiesha DO Work Phone: [facility] 05-25-2025 14:45-0400 Systolic blood pressure 122 mm[Hg] Nathan Kiesha DO Work Phone: [facility] 05-01-2025 10:29-0400 Body mass index (BMI) [Ratio] 25.68 kg/m2 Nom Nurse [facility] 05-01-2025 10:29-0400 Body weight 63.69 kg [facility] Nurse [facility] 01-19-2025 15:08-0500 Body mass index (BMI) [Ratio] 25.99 kg/m2 Nathan Kiesha DO Work Phone: [facility] 01-19-2025 15:08-0500 Body weight 64.47 kg Nathan Kiesha DO Work Phone: [facility] 01-19-2025 15:08-0500 Diastolic blood pressure 78 mm[Hg] Nathan Kiesha DO Work Phone: [facility] 01-19-2025 15:08-0500 Systolic blood pressure 122 mm[Hg] Nathan Kiesha DO Work Phone: [facility] 12-30-2024 15:53-0500 Body height 157.5 cm Nay Beltran DO Work Phone: [facility] 12-30-2024 15:53-0500 Body mass index (BMI) [Ratio] 25.61 kg/m2 Nay Beltran DO Work Phone: [facility] 12-30-2024 15:53-0500 Body temperature 97.11 [degF] Nay Beltran DO Work Phone: [facility] 12-30-2024 15:53-0500 Body weight 63.5 kg Nay Beltran DO Work Phone: [facility] 12-30-2024 15:53-0500 Diastolic blood pressure 82 mm[Hg] Nay Beltran DO Work Phone: [facility] 12-30-2024 15:53-0500 Heart rate 51 /min Nay Beltran DO Work Phone: [facility] 12-30-2024 15:53-0500 SaO2% (BldA) [Mass fraction] 98 % Nay Beltran DO Work Phone: [facility] 12-30-2024 15:53-0500 Systolic blood pressure 122 mm[Hg] Nay Beltran DO Work Phone: [facility] 08-18-2024 11:15-0400 Body mass index (BMI) [Ratio] 25.97 kg/m2 Nathan Kiesha DO Work Phone: [facility] 08-18-2024 11:15-0400 Body weight 64.41 kg Nathan Kiesha DO Work Phone: [facility] 08-18-2024 11:15-0400 Diastolic blood pressure 70 mm[Hg] Nathan Kiesha DO Work Phone: [facility] 08-18-2024 11:15-0400 Systolic blood pressure 112 mm[Hg] Nathan Kiesha DO Work Phone: [facility] 07-22-2024 10:02-0400 Body mass index (BMI) [Ratio] 25.39 kg/m2 Nathan Kiesha DO Work Phone: [facility] 07-22-2024 10:02-0400 Body weight 62.96 kg Nathan Kiesha DO Work Phone: [facility] 07-22-2024 10:02-0400 Diastolic blood pressure 72 mm[Hg] Nathan Kiesha DO Work Phone: [facility] 07-22-2024 10:02-0400 Systolic blood pressure 122 mm[Hg] Nathan Kiesha DO Work Phone: [facility] 01-10-2024 10:55-0500 Body mass index (BMI) [Ratio] 28.17 kg/m2 Nathan Kiesha DO Work Phone: [facility] 01-10-2024 10:55-0500 Body weight 69.85 kg Nathan Kiesha DO Work Phone: [facility] 01-10-2024 10:55-0500 Diastolic blood pressure 84 mm[Hg] Nathan Kiesha DO Work Phone: [facility] 01-10-2024 10:55-0500 Systolic blood pressure 128 mm[Hg] Nathan Kiesha DO Work Phone: [facility] 09-12-2023 17:31-0400 Body temperature 98.96 [degF] [facility] 09-12-2023 17:31-0400 Diastolic blood pressure 91 mm[Hg] [facility] 09-12-2023 17:31-0400 FIO2 99 % [facility] 09-12-2023 17:31-0400 Heart rate 122 /min [facility] 09-12-2023 17:31-0400 Respiratory rate 16 /min [facility] 09-12-2023 17:31-0400 Systolic blood pressure 135 mm[Hg] [facility] 05-01-2023 10:55-0400 Body height 157.5 cm Srinivasa Reaper BEHAVIORAL SCIENCES INSTRUCTOR.ALTERNATIVE ENERGY ENGINEER Work Phone: [facility] 05-01-2023 10:55-0400 Body weight 64.86 kg Srinivasa Reaper BEHAVIORAL SCIENCES INSTRUCTOR.ALTERNATIVE ENERGY ENGINEER Work Phone: [facility] 05-01-2023 10:55-0400 Diastolic blood pressure 64 mm[Hg] Srinivasa Reaper BEHAVIORAL SCIENCES INSTRUCTOR.ALTERNATIVE ENERGY ENGINEER Work Phone: [facility] 05-01-2023 10:55-0400 Systolic blood pressure 148 mm[Hg] Srinivasa Reaper BEHAVIORAL SCIENCES INSTRUCTOR.ALTERNATIVE ENERGY ENGINEER Work Phone: [facility] 01-31-2023 19:18-0500 Diastolic blood pressure 82 mm[Hg] [facility] 01-31-2023 19:18-0500 Heart rate 98 /min [facility] 01-31-2023 19:18-0500 Nursing Progress Note Reason Other: this RN discharged pt. pt verbalizes understanding and denies questiosn prior to discharge. [facility] 01-31-2023 19:18-0500 Respiratory rate 16 /min [facility] 01-31-2023 19:18-0500 SaO2% (BldA) [Mass fraction] 100 % [facility] 01-31-2023 19:18-0500 Systolic blood pressure 126 mm[Hg] [facility] 01-31-2023 18:00-0500 Diastolic blood pressure 92 mm[Hg] [facility] 01-31-2023 18:00-0500 Heart rate 110 /min [facility] 01-31-2023 18:00-0500 Mean blood pressure 107 mm[Hg] [facility] 01-31-2023 18:00-0500 SaO2% (BldA) [Mass fraction] 99 % [facility] 01-31-2023 18:00-0500 Systolic blood pressure 138 mm[Hg] [facility] 01-31-2023 17:00-0500 Diastolic blood pressure 97 mm[Hg] [facility] 01-31-2023 17:00-0500 Mean blood pressure 104 mm[Hg] [facility] 01-31-2023 17:00-0500 Systolic blood pressure 117 mm[Hg] [facility] 01-31-2023 16:38-0500 Heart rate 105 /min [facility] 01-31-2023 16:38-0500 Mean blood pressure 114 mm[Hg] [facility] 01-31-2023 16:38-0500 Respiratory rate 18 /min [facility] 01-31-2023 13:49-0500 Body temperature 97.88 [degF] [facility] 01-31-2023 13:49-0500 Heart rate 118 /min [facility] 12-30-2022 14:55-0500 Body temperature 97.88 [degF] [facility] 12-30-2022 14:55-0500 Diastolic blood pressure 81 mm[Hg] [facility] 12-30-2022 14:55-0500 Heart rate 84 /min [facility] 12-30-2022 14:55-0500 Mean blood pressure 100 mm[Hg] [facility] 12-30-2022 14:55-0500 Respiratory rate 20 /min [facility] 12-30-2022 14:55-0500 SaO2% (BldA) [Mass fraction] 98 % [facility] 12-30-2022 14:55-0500 Systolic blood pressure 137 mm[Hg] [facility] 12-30-2022 14:35-0500 Body temperature 97.88 [degF] [facility] 12-30-2022 14:35-0500 Diastolic blood pressure 79 mm[Hg] [facility] 12-30-2022 14:35-0500 Heart rate 82 /min [facility] 12-30-2022 14:35-0500 Mean blood pressure 94 mm[Hg] [facility] 12-30-2022 14:35-0500 Respiratory rate 16 /min [facility] 12-30-2022 14:35-0500 SaO2% (BldA) [Mass fraction] 97 % [facility] 12-30-2022 14:35-0500 Systolic blood pressure 123 mm[Hg] [facility] 12-30-2022 13:35-0500 Body temperature 97.88 [degF] [facility] 12-30-2022 13:35-0500 Diastolic blood pressure 70 mm[Hg] [facility] 12-30-2022 13:35-0500 Heart rate 80 /min [facility] 12-30-2022 13:35-0500 Mean blood pressure 89 mm[Hg] [facility] 12-30-2022 13:35-0500 Respiratory rate 17 /min [facility] 12-30-2022 13:35-0500 SaO2% (BldA) [Mass fraction] 96 % [facility] 12-30-2022 13:35-0500 Systolic blood pressure 126 mm[Hg] [facility] 12-30-2022 13:00-0500 Respiratory rate 12 /min [facility] 12-30-2022 12:55-0500 Respiratory rate 9 /min [facility] 12-30-2022 12:50-0500 Respiratory rate 10 /min [facility] 12-30-2022 08:15-0500 Body temperature 98.24 [degF] [facility] 12-30-2022 08:15-0500 Heart rate 111 /min [facility] 12-02-2022 13:41-0500 Body temperature 98.2 [degF] Ritu Ryder DO Work Phone: [facility] 12-02-2022 13:41-0500 Diastolic blood pressure 87 mm[Hg] Ritu Nievese DO Work Phone: [facility] 12-02-2022 13:41-0500 Heart rate 111 /min Ritu Ryder DO Work Phone: [facility] 12-02-2022 13:41-0500 Respiratory rate 18 /min Ritu Nievese DO Work Phone: [facility] 12-02-2022 13:41-0500 SaO2% (BldA) [Mass fraction] 99 % Ritu Ryder DO Work Phone: [facility] 12-02-2022 13:41-0500 Systolic blood pressure 143 mm[Hg] Ritu Ryder DO Work Phone: [facility] 11-28-2022 00:45-0500 Body height 157.5 cm Ritu Ryder DO Work Phone: [facility] 11-28-2022 00:45-0500 Body mass index (BMI) [Ratio] 25.61 kg/m2 Ritu Ryder DO Work Phone: [facility] 11-28-2022 00:45-0500 Body weight 63.5 kg Ritu Ryder DO Work Phone: [facility] 11-27-2022 22:26-0500 [employer] [facility]i DORSEY [facility] Comment on above: Result Comment: ensured that all pt belo ngings are sent with pt. pt has no questions or concerns. report given to EMS. pt stable and no s/s of distress. pt off unit to transfer 11-27-2022 22:00-0500 Diastolic blood pressure 97 mm[Hg] [facility]i ABREUK [facility] 11-27-2022 22:00-0500 Heart rate 134 /min [facility] DORSE[facility] 11-27-2022 22:00-0500 [employer] [facility] DORSE[facility] 11-27-2022 22:00-0500 Mean blood pressure 116 mm[Hg] Fredi ABREUK [facility] 11-27-2022 22:00-0500 Systolic blood pressure 154 mm[Hg] Fredi SCHUMACHERASIK [facility] 01-02-2023 21:50-0500 Blood Pressure Location Fredi KARASIK [facility] 11-27-2022 21:50-0500 Diastolic blood pressure 90 mm[Hg] [facility]i KARASIK [facility] 11-27-2022 21:50-0500 Heart rate 133 /min [facility]i KARASIK [facility] 11-27-2022 21:50-0500 [employer] Fredi KARASIK [facility] 11-27-2022 21:50-0500 Mean blood pressure 113 mm[Hg] Fredi KARASIK [facility] 11-27-2022 21:50-0500 Respiratory rate 18 /min Fredi KARASIK [facility] 11-27-2022 21:50-0500 SaO2% (BldA) [Mass fraction] 98 % Fredi KARASIK [facility] 11-27-2022 21:50-0500 Systolic blood pressure 159 mm[Hg] Fredi KARASIK [facility] 11-27-2022 21:37-0500 Blood Pressure Location Fredi KARASIK [facility] 11-27-2022 21:37-0500 Diastolic blood pressure 88 mm[Hg] Fredi KARASIK [facility] 11-27-2022 21:37-0500 Heart rate 131 /min Fredi KARASIK [facility] 11-27-2022 21:37-0500 Mean blood pressure 111 mm[Hg] Fredi KARASIK [facility] 11-27-2022 21:37-0500 SaO2% (BldA) [Mass fraction] 97 % Fredi KARASIK [facility] 11-27-2022 21:37-0500 Systolic blood pressure 158 mm[Hg] Fredi KARASIK [facility] 11-27-2022 21:30-0500 Blood Pressure Location Fredi KARAS[facility] 11-27-2022 21:30-0500 Body temperature 98.6 [degF] [facility]i KARAS[facility] 11-27-2022 19:00-0500 Body temperature 98.24 [degF] [facility]i KARAS[facility] 11-27-2022 17:15-0500 Body temperature 98.06 [degF] [facility]i KARAS[facility] 11-27-2022 14:02-0500 Heart rate 99 /min Fredi KARAS[facility] 07-14-2022 07:00-0400 Body temperature 98.6 [degF] [facility] 07-14-2022 07:00-0400 Diastolic blood pressure 67 mm[Hg] [facility] 07-14-2022 07:00-0400 Heart rate 80 /min [facility] 07-14-2022 07:00-0400 Mean blood pressure 83 mm[Hg] [facility] 07-14-2022 07:00-0400 Respiratory rate 17 /min [facility] 07-14-2022 07:00-0400 Systolic blood pressure 115 mm[Hg] [facility] 07-14-2022 06:07-0400 Body temperature 98.24 [degF] Charlotteylinn [facility]ken [facility] 07-14-2022 06:07-0400 Diastolic blood pressure 79 mm[Hg] Kaylinn Dokken [facility] 07-14-2022 06:07-0400 Heart rate 90 /min Kaylinn Dokken [facility] 07-14-2022 06:07-0400 Respiratory rate 18 /min Charlotteylinn Dokken [facility] 07-14-2022 06:07-0400 SaO2% (BldA) [Mass fraction] 100 % Alfredinn Dokken [facility] 07-14-2022 06:07-0400 Systolic blood pressure 134 mm[Hg] Alfredinn Dokken [facility] 07-14-2022 05:30-0400 Hourly Rounding Nathan KIESHA [facility] Comment on above: Result Comment: Pt discharged per physic santiago orders. Pt ambulates off unit with a steady gait 07-14-2022 05:15-0400 Diastolic blood pressure 77 mm[Hg] Nathan KIESHA [facility] 07-14-2022 05:15-0400 Heart rate 105 /min Nathan KIESHA [facility] 07-14-2022 05:15-0400 Hourly Rounding Nathan KIESHA [facility] 07-14-2022 05:15-0400 Mean blood pressure 89 mm[Hg] Nathan KIESHA [facility] 07-14-2022 05:15-0400 Respiratory rate 18 /min Nathan CABRERAO [facility] 07-14-2022 05:15-0400 Systolic blood pressure 113 mm[Hg] Nathan CABRERAO [facility] 04-18-2022 11:00-0400 Body height 160.02 cm Domo Hodges Other [facility] Other 04-18-2022 11:00-0400 Body mass index (BMI) [Ratio] 23.03 kg/m2 Domo Hodges Other [facility] Other 04-18-2022 11:00-0400 Body weight 58.97 kg Domo Hodges Other [place] [employer] Other 02-09-2022 11:41-0400 Body height 157.48 cm Charlene Billow DO Work Phone: ID-ZOQNN-Fxwyre 320 Work Phone: 02-09-2022 11:41-0400 Body mass index (BMI) [Ratio] 24.51 kg/m2 Charlene Billow DO Work Phone: RK-ZZPRK-Jgelof 320 Work Phone: 02-09-2022 11:41-0400 Body surface area Derived from formula 1.61 m2 Charlene Billow DO Work Phone: UY-KBFZC-Tqrpcw 320 Work Phone: 02-09-2022 11:41-0400 Body weight 60.78 kg Charlene Billow DO Work Phone: EX-EHVGI-Sumgor 320 Work Phone: 02-09-2022 11:41-0400 Diastolic blood pressure 87 mm[Hg] Charlene Billow DO Work Phone: DF-ANAVJ-Mefqoj 320 Work Phone: 02-09-2022 11:41-0400 Systolic blood pressure 136 mm[Hg] Charlene Billow DO Work Phone: CX-NXATT-Rpoxfm 320 Work Phone: 02-09-2022 11:41-0400 0 1 Charlene Billow DO Work Phone: WW-QCAKM-Annbsy 320 Work Phone: Comment on above: GRAV PARA [employer] 04-19-2021 14:53-0400 Body height 157.48 cm Charlene Billow DO Work Phone: BP-FVBUE-Vqsfgz 320 Work Phone: 04-19-2021 14:53-0400 Body mass index (BMI) [Ratio] 21.77 kg/m2 Charlene Billow DO Work Phone: SY-ETSMK-Hxkaos 320 Work Phone: 04-19-2021 14:53-0400 Body surface area Derived from formula 1.53 m2 Charlene Billow DO Work Phone: XH-JQUSV-Lcmdea 320 Work Phone: 04-19-2021 14:53-0400 Body weight 53.98 kg Charlene Billow DO Work Phone: HG-NNUZB-Zjmrwo 320 Work Phone: 04-19-2021 14:53-0400 Diastolic blood pressure 83 mm[Hg] Charlene Billow DO Work Phone: LT-VPJPK-Fjmmzg 320 Work Phone: 04-19-2021 14:53-0400 Heart rate 108 /min Charlene Billow DO Work Phone: DF-PUYPU-Pwxbaw 320 Work Phone: 04-19-2021 14:53-0400 Systolic blood pressure 142 mm[Hg] Charlene Billow DO Work Phone: AA-HTUAK-Mselua 320 Work Phone: 04-19-2021 14:53-0400 0 1 Charlene Rodriguez DO Work Phone: BG-PHEKY-Zsuguy 320 Work Phone: Comment on above: GRAV PARA [employer] Encounters Encounter Date Encounter Type Care Provider Facility Start: 08-27-2025 End: 08-27-2025 flow sheet Marbella Keane INFECTIOUS DISEASES PHYSICIAN Work Phone: [facility] Comment on above: 26 weeks gestation o f ([facility]); Second trimester ([facility]); induced hypertension, antepartum ([facility]); Gestational diabetes mellitus (GDM) in second trimester, gestational diabetes method of control unspecified ([facility]) Start: 08-27-2025 End: 08-27-2025 Bamboo flowsheet Marbella Keane INFECTIOUS DISEASES PHYSICIAN Work Phone: [facility] Patti YOUNGN Start: 08-27-2025 End: 08-27-2025 Bamboo flowsheet Marbella Keane INFECTIOUS DISEASES PHYSICIAN Work Phone: [facility] Patti OBMICHELLEN Start: 08-27-2025 End: 08-27-2025 Clinisync Result Encounter Marbella Keane NP Work Phone: [facility] External Department Unsolicited Start: 08-25-2025 End: 08-26-2025 Clinisync Result Encounter Generic External Data Provider [facility] External Department Unsolicited Start: 08-25-2025 End: 08-26-2025 Clinisync Result Encounter Generic External Data Provider [facility] External Department Unsolicited Start: 08-24-2025 End: 08-24-2025 ambulatory Teena Sarmiento RN Work Phone: [facility] Comment on above: Gestational diabetes mellitus (GDM) in second trimester, gestational diabetes method of control unspecified Start: 08-21-2025 End: 08-21-2025 Chart abstracting Scanning Provider External [facility] Start: 08-18-2025 End: 08-19-2025 Chart abstracting Quynh Clements MD Work Phone: [facility] Start: 08-15-2025 End: 08-15-2025 ambulatory MARBELLA KEANE Facility:[facility] Start: 08-12-2025 End: 08-12-2025 flow sheet Nathan Kiesha DO Work Phone: NOMSudha [facility]ODY Comment on above: 24 weeks gestation o f ([facility]); Second trimester ([facility]); Elevated glucose tolerance test Start: 08-12-2025 End: 08-12-2025 ambulatory NATHAN KIESHA Not Available Start: 08-12-2025 End: 08-12-2025 ambulatory Nathan R KIESHA Facility:[facility] Start: 08-01-2025 End: 08-01-2025 ambulatory Yomaira BELTRAN Facility:[facility] Start: 07-30-2025 End: 07-30-2025 Patient encounter status Nay Beltran DO Work Phone: [facility] Work Phone: Start: 07-30-2025 End: 07-30-2025 Periodic preventive med est patient 18-39 yrs Nay Beltran DO Work Phone: [facility] 230 Comment on above: Wellness examination (Primary Dx); Hypertension, unspecified type ; Lipid screening Start: 07-30-2025 End: 07-30-2025 ambulatory NAY BELTRAN Not Available Start: 07-30-2025 End: 07-30-2025 Bamboo flowsheet Nay Beltran DO Work Phone: [facility] 230 Start: 07-30-2025 End: 07-30-2025 Bamboo flowsheet Nay Beltran DO Work Phone: [facility] 230 Start: 07-15-2025 End: 07-15-2025 flow sheet Nathan Kiesha DO Work Phone: [facility] Comment on above: 20 weeks gestation o f ([facility]); Second trimester ([facility]); Diabetes mellitus screening Start: 07-15-2025 End: 07-15-2025 ambulatory NATHAN KIESHA Not Available Start: 07-15-2025 End: 07-18-2025 Clinisync Result Encounter Nathan Kiesha DO Work Phone: [facility] External Department Unsolicited Start: 07-15-2025 End: 07-18-2025 Clinisync Result Encounter Nathan Kiesha DO Work Phone: [facility] External Department Unsolicited Start: 06-22-2025 End: 06-22-2025 flow sheet Nathan Kiesha DO Work Phone: [facility] Comment on above: Sinusitis, unspecifi ed chronicity, unspecified location (Primary Dx); Second trimester ([facility]); 17 weeks gestation of ([facility]); Screening, , for anatomic survey ([facility]) Start: 06-22-2025 End: 06-22-2025 ambulatory NATHAN KIESHA Not Available Start: 06-22-2025 End: 06-22-2025 Bamboo flowsheet Nathan Kiesha DO Work Phone: [facility] Start: 06-22-2025 End: 06-24-2025 Bamboo flowsheet Nathan Kiesha DO Work Phone: [facility] Start: 06-22-2025 End: 06-24-2025 External Result Encounter Nathan Kiesha DO Work Phone: [facility] External Department Unsolicited Start: 05-25-2025 End: 05-25-2025 ambulatory NATHAN KIESHA Not Available Start: 05-25-2025 End: 05-25-2025 flow sheet Nathan Kiesha DO Work Phone: NOM[facility]ha IYER Comment on above: Nonintractable episo dic headache, unspecified headache type (Primary Dx); Second trimester ([facility]); 13 weeks gestation of ([facility]) Start: 05-25-2025 End: 05-25-2025 Bamboo flowsheet Nathan [...] End: 03-13-2025 ambulatory Nathan R KIESHA Facility:[facility] Start: 03-13-2025 End: 03-13-2025 Patient encounter procedure Nathan R KIESHA [facility] Start: 02-02-2025 End: 02-02-2025 Patient encounter procedure Cruz Rodríguez MD Work Phone: [facility] [place] Work Phone: Start: 02-02-2025 End: 02-02-2025 ambulatory Curz Rodríguez MD Work Phone: [facility] Work Phone: Start: 01-22-2025 End: 01-22-2025 ambulatory Nathan R KIESHA Facility:[facility] Start: 01-22-2025 End: 01-22-2025 Patient encounter procedure Nathan R KIESHA [facility] Start: 01-19-2025 End: 01-19-2025 Office outpatient [...] minutes Nay Beltran DO Work Phone: [facility] 230 Comment on above: Hypertension, unspec [...] encounter Charlene Bill ow DO Work Phone: [facility] Start: 04-25-2024 Telephone encounter Charlene Bill ow DO Work Phone: [facility] Comment on above: Surgery Cancelled Start: 01-10-2024 End: 01-10-2024 Office outpatient visit 15 minutes Nathan Kiesha DO Work Phone: [facility] Comment on above: Menorrhagia with reg ular cycle; Pelvic pain in female; Uses control Start: 01-02-2024 Refill Charlene Billow D O Work Phone: [facility] Comment on above: Refill Request Start: 12-31-2023 ambulatory Charlene Billow D O Work Phone: Obstetrics/Gynecology Comment on above: pain Start: 12-10-2023 End: 12-10-2023 ambulatory CHARLENE BILLOW Facility:[facility] Start: 10-22-2023 ambulatory Charlene Billow D O Work Phone: [facility] Start: 10-22-2023 Patient encounter procedure Charlene Billow DO Work Phone: Obstetrics/Gynecology Comment on above: office visit Start: 09-12-2023 End: 09-12-2023 Emergency department patient visit [facility] Start: 08-30-2023 Manual pelvic examination Charlene Billow DO Work Phone: Obstetrics/Gynecology Comment on above: Pelvic pain in femal e (Primary Dx) Start: 08-26-2023 ambulatory Charlene Billow D O Work Phone: Obstetrics/Gynecology Comment on above: painful periods Start: 08-24-2023 End: 08-24-2023 Manual pelvic examination Srinivasa Reaper BEHAVIORAL SCIENCES INSTRUCTOR.ALTERNATIVE ENERGY ENGINEER Work Phone: Gynecology Comment on above: High-tone pelvic stella or dysfunction (Primary Dx); Chronic pelvic pain in female Start: 08-24-2023 End: 08-24-2023 Telemedicine consultation with patient Srinivasa Vicker BEHAVIORAL SCIENCES INSTRUCTOR.ALTERNATIVE ENERGY ENGINEER Work Phone: [facility] Start: 08-24-2023 End: 08-24-2023 ambulatory SRINIVASA REAPER Facility:[facility] Start: 08-13-2023 ambulatory Charlene Billow D O Work Phone: Obstetrics/Gynecology Comment on above: painful period Start: 08-02-2023 Telephone encounter Charlene Bill ow DO Work Phone: Gynecology Comment on above: Insurance Authorizat ion (Orilissa) Start: 07-16-2023 End: 07-16-2023 ambulatory CHARLENE BILLOW Facility:[facility] Start: 06-12-2023 End: 06-12-2023 ambulatory CHARLENE BILLOW Facility:[facility] Start: 06-12-2023 End: 06-12-2023 Subsequent hospital visit by physician Maurice Cohn (I-Stat/1.5t) Radiology Comment on above: Pelvic and perineal pain [R10.2] Start: 05-17-2023 End: 05-17-2023 Manual pelvic examination Charlene Rodriguez DO Work Phone: Obstetrics/Gynecology Comment on above: Endometriosis (Prima ry Dx); Pelvic and perineal pain Start: 05-17-2023 End: 05-17-2023 Telemedicine consultation with patient Charlene Rodriguez DO Work Phone: [facility] Start: 05-17-2023 End: 05-17-2023 ambulatory [facility] Facility:[facility] Start: 05-11-2023 Telephone encounter Charlene jimenez DO Work Phone: Gynecology Comment on above: Vaginal Bleeding Start: 05-01-2023 End: 05-01-2023 [facility] Facility:[facility] Start: 05-01-2023 End: 05-01-2023 Patient encounter procedure Srinivasa Downs APRN.ALTERNATIVE ENERGY ENGINEER Work Phone: Gynecology Comment on above: Chronic pelvic pain in female (Primary Dx); Constipation, unspecified constipation type; High-tone pelvic floor dysfunction; Diastasis of rectus abdominis; Dysmenorrhea; Other specified dyspareunia Start: 04-22-2023 ambulatory Charlene Rodriguez D O Work Phone: Obstetrics/Gynecology Comment on above: painful Start: 01-31-2023 End: 01-31-2023 Emergency department patient visit [facility] Start: 12-30-2022 End: 12-30-2022 Patient encounter procedure [facility] Start: 12-05-2022 End: 12-05-2022 [facility] Start: 12-05-2022 End: 12-05-2022 Office outpatient visit 15 minutes Tonia Diallo DO Work Phone: [facility] Comment on above: Pre-eclampsia, sever e, delivered (Primary Dx) Start: 11-28-2022 End: 12-02-2022 Evaluation and management of inpatient RITU RYDER [facility] Start: 11-28-2022 End: 12-02-2022 Evaluation and management of inpatient Ritu Ryder DO Work Phone: [facility] Comment on above: Preeclampsia, severe , third trimester (Primary Dx) Start: 11-28-2022 End: 12-27-2022 Pre-admission assessment Fredi DORSEY [facility] Start: 11-27-2022 End: 11-27-2022 OB Triage Fredi DORSEY [facility] Start: 07-14-2022 End: 07-14-2022 Emergency department patient visit Kumar Villagomez [facility] Start: 07-14-2022 End: 07-14-2022 OB Triage Nathan POP [facility] Start: 04-25-2022 End: 04-25-2022 Patient encounter procedure DOMO HODGES [facility] Start: 04-18-2022 End: 04-18-2022 ambulatory Domo Hodges Other [facility] Other Start: 04-18-2022 Patient encounter procedure Domo Hodges [facility] Start: 02-09-2022 Office outpatient vi sit 15 minutes Charlene Rodriguez DO Work Phone: [facility] 320 Work Phone: Start: 09-29-2021 End: 10-02-2021 amb[facility] Start: 09-29-2021 End: 10-02-2021 ambulatory [facility] Start: 04-19-2021 AUDIT Charlene Keating O Work Phone: WS-FLMAM-Efsuqb 320 Work Phone: Start: 04-19-2021 PLVCPOBGYN, Provider : Charlene Rodriguez, Status: Pen, Time: 2:45 PM Nicholas Chau MD Work Phone: QB-Ildigsq-Rjpgvfoqg Work Phone: Start: 04-18-2021 Chart Update Nicholas Keating Work Phone: DW-Orkidld-Qoridcjlk Work Phone: Procedures Date Procedure Procedure Detail Performing Clinician Start: 08-27-2025 US OB BPP W NON-STRESS Marbella Keane INFECTIOUS DISEASES PHYSICIAN Work Phone: Start: 08-27-2025 TBH URINE T PROTEIN CREAT RATIO Generic External Data Provider Start: 08-27-2025 ALL CBC WITH AUTO DIFF Generic External Data Provider Start: 08-27-2025 Urnls dip stick/tabl et rgnt non-auto w/o micrscp Marbella Keane INFECTIOUS DISEASES PHYSICIAN Work Phone: Start: 08-25-2025 Bacteria identified in Urine by Culture Generic External Data Provider Start: 08-15-2025 Glucose quantitative blood xcpt reagent [...] stick/tabl et rgnt non-auto w/o micrscp Nathan Pop DO Work Phone: Start: 06-22-2025 RECURRENT VAGINITIS (HTRX) Nathan Pop DO Work Phone: Start: 06-22-2025 Urnls dip stick/tabl et rgnt non-auto w/o micrscp Nathan Cabrerao DO Work Phone: Start: 05-25-2025 Urnls dip stick/tabl et rgnt non-auto w/o micrscp Nathan Pop DO Work Phone: Start: 05-04-2025 Antibody screen Cullen Clements MD Work Phone: Start: 05-04-2025 Drug scrn 1+ class nonchromo Not In System Ref Prov Start: 05-04-2025 Hemoglobin glycosylated a1c Nathan Pop DO Work Phone: Start: 05-04-2025 Hepatitis c antibody No t In System Ref Prov Start: 05-04-2025 HIV 1&2 AB/AG SCREEN (P24 AG) Not In System Ref Prov Start: 05-04-2025 Iaad ia hepatitis b surface antigen Not In System Ref Prov Start: 05-04-2025 TYPE AND SCREEN Not In System Ref Prov Start: 05-04-2025 BOX TEST Nathan joseph DO Work Phone: Start: 05-01-2025 Urnls dip stick/tabl et rgnt non-auto w/o micrscp Nathan Pop DO Work Phone: Start: 05-01-2025 US OB TRANSVAGINAL Core pearl Pop DO Work Phone: Start: 08-18-2024 IGP,APTIMA HPV,AGE [...] 11-29-2022 Blood count platelet automated Jimmie Kaur BEHAVIORAL SCIENCES INSTRUCTOR - SIDE PANEL PADDER Work Phone: Start: 11-28-2022 Blood count platelet [...] Start: 05-16-2021 Antibody hiv-1&hiv-2 single result Megadyne [id number] Start: 05-16-2021 Iaad ia hepatitis b surface antigen Megadyne [id number] Start: 02-28-2021 Cystoscopy DOMO BROWNE Start: 08-30-2020 End: 08-30-2020 Antibody screen Comment on above: Performed By: #### T +S #### [facility] [address] [place] [address] Order Comment: TEST TYPE + SCREEN WAS CANCELLED, 08/30/2020 13:37 JOP. Performed By: #### T +S #### [facility] [address] [place] [address] Start: 08-07-2018 RIGHT SHOULDER OPEN DISTAL CLAVICLE EXCISION 1 DOMO HODGES Comment on above: RIGHT SHOULDER OPEN DISTAL CLAVICLE EXCISION RIGHT SHOULDER OPEN DISTAL CLAVICLE EXCISION Appendectomy DOMO HODGES Betamethasone (substance) Gr egory WILLIAN Comment on above: Dose #1: 11/27/22 Colonoscopy DOMO DITTY Endoscope, device (p hysical object) Vongabriela Loco Laparoscopy Nicholas Chau MD Work Phone: Plan of Treatment Date Care Activity Detail Author Start: 2045 Zoster Vaccines (1 of 2) Zoste r Vaccines (1 of 2) [facility] Start: 09-03-2028 Screening for malign ant neoplasm of cervix [facility] Start: 08-18-2027 Screening for malign ant neoplasm of cervix Pap Smear [facility] Start: 09-10-2025 End: 09-10-2025 Telemedicine consultation with patient 09/10/2025 11:00 AM EDT Telemedicine [facility] [address] [facility] [address] [place] [address] Quynh Clements MD [address] [facility], [address] [place] [address] [facility] Start: 09-10-2025 End: 09-10-2025 Patient encounter procedure 09/10/2025 9:45 AM EDT Appointment [facility] [address] [place] [address] [place] [address] [facility] Start: 09-07-2025 End: 09-07-2025 Patient encounter procedure [facility] Start: 09-03-2025 End: 09-03-2025 Patient encounter procedure 09/03/2025 3:50 PM EDT Routine [facility] [address] [facility] [place] [address] Marbella Keane, DEVYN [address] [place] [id number] [facility] Start: 08-27-2025 End: 08-27-2025 Patient encounter procedure 08/27/2025 3:20 PM EDT Routine LAN[facility] MOODY [address] [place] [address] Marbella Keane, INFECTIOUS DISEASES PHYSICIAN [address] [place] [address] [facility] MOODY Start: 08-27-2025 End: 08-27-2026 Alanine aminotransferase [Enzymatic activity/volume] in Serum or Plasma ALT Lab Routine induced hypertension, antepartum ([facility]HS-HCC) Expected: 08/27/2025 (Approximate), Expires: 08/27/2026 [facility] Comment on above: Expected: 08/27/2025 (Approximate), Expires: 08/27/2026 Start: 08-27-2025 End: 08-27-2026 Aspartate aminotransferase [Enzymatic activity/volume] in Serum or Plasma AST Lab Routine induced hypertension, antepartum ([facility]HS-HCC) Expected: 08/27/2025 (Approximate), Expires: 08/27/2026 [facility] Comment on above: Expected: 08/27/2025 (Approximate), Expires: 08/27/2026 Start: 08-27-2025 End: 08-27-2026 CBC W Auto Differential panel - Blood CBC and differential Lab Routine induced hypertension, antepartum ([facility]HS-HCC) Expected: 08/27/2025 (Approximate), Expires: 08/27/2026 [facility] Comment on above: Expected: 08/27/2025 (Approximate), Expires: 08/27/2026 Start: 08-27-2025 End: 08-27-2026 Creatinine [Mass/volume] in Serum or Plasma Creatinine Lab Routine induced hypertension, antepartum ([facility]HS-HCC) Expected: 08/27/2025 (Approximate), Expires: 08/27/2026 [facility] Work Phone: Comment on above: Expected: 08/27/2025 (Approximate), Expires: 08/27/2026 Start: 08-27-2025 End: 08-27-2026 Lactate dehydrogenase [Enzymatic activity/volume] in Serum or Plasma by Lactate to pyruvate reaction Lactate dehydrogenase Lab Routine induced hypertension, antepartum ([facility]HS-HCC) Expected: 08/27/2025, Expires: 08/27/2026 [facility] Comment on above: Expected: 08/27/2025 , Expires: 08/27/2026 Start: 08-27-2025 End: 08-27-2026 Protein, urine, 24 hour Protein, urine, 24 hour Lab Routine induced hypertension, antepartum ([facility]HS-HCC) Expected: 08/27/2025 (Approximate), Expires: 08/27/2026 [facility] Comment on above: Expected: 08/27/2025 (Approximate), Expires: 08/27/2026 Start: 08-27-2025 End: 08-27-2026 Pt and ptt Pt and ptt Lab Routine induced hypertension, antepartum ([facility]HS-HCC) Expected: 08/27/2025, Expires: 08/27/2026 [facility] Comment on above: Expected: 08/27/2025 , Expires: 08/27/2026 Start: 08-27-2025 End: 08-27-2026 Urate [Mass/volume] in Serum or Plasma Uric acid Lab Routine induced hypertension, antepartum ([facility]HS-HCC) Expected: 08/27/2025 (Approximate), Expires: 08/27/2026 [facility] Comment on above: Expected: 08/27/2025 (Approximate), Expires: 08/27/2026 Start: 08-27-2025 End: 08-27-2026 Urea nitrogen [Mass/volume] in Serum or Plasma BUN Lab Routine induced hypertension, antepartum ([facility]HS-HCC) Expected: 08/27/2025, Expires: 08/27/2026 [facility] Comment on above: Expected: 08/27/2025 , Expires: 08/27/2026 Start: 08-27-2025 End: 02-25-2026 US biophysical profile w non stress test US biophysical profile w non stress test Imaging Routine induced hypertension, antepartum ([facility]HS-HCC) Gestational diabetes mellitus (GDM) in second trimester, gestational diabetes method of control unspecified ([facility]HS-HCC) Expected: 08/27/2025 (Approximate), Expires: 02/25/2026 [facility] Comment on above: Expected: 08/27/2025 (Approximate), Expires: 02/25/2026 Start: 08-24-2025 End: 08-24-2025 ambulatory 08/24/2025 1:30 PM EDT Support Visit [facility] [address] [facility] [place] [address] Teena Sarmiento RN [address] [facility] [address], [address] [place] [address] Kerline Steiner, RD [address], [address] [place] [address] [facility] Start: 08-24-2025 End: 08-24-2025 Patient encounter procedure 08/24/2025 11:00 AM EDT Office Visit [facility] [address] [facility] [place] [phone] Nathan Pop, DO [address] [place] [address] [facility] Start: 08-12-2025 End: 08-12-2025 Patient encounter procedure 08/12/2025 2:40 PM EDT [facility] [address] [facility] [place] [phone] Nathan Pop, DO [address] [place], [place] [phone] [facility] Start: 08-12-2025 End: 08-12-2026 Measurement of glucose 3 hours after glucose challenge for glucose tolerance test Glucose tolerance, 3 hours Lab Routine Elevated glucose tolerance test Expected: 08/12/2025 (Approximate), Expires: 08/12/2026 [facility] Work Phone: Comment on above: Expected: 08/12/2025 (Approximate), Expires: 08/12/2026 Start: 08-12-2025 End: 08-12-2025 Professional / ancillary services management 08/12/2025 2:00 PM EDT Ancillary Procedure [facility] Patti MO[facility] [address] [place] [address] [place] [address] [facility] Start: 07-31-2025 End: 08-29-2025 CBC W Auto Differential panel - Blood CBC and differential Lab Routine Hypertension, unspecified type Wellness examination Expected: 07/31/2025 (Approximate), Expires: 08/29/2025 [facility] Work Phone: Comment on above: Expected: 07/31/2025 (Approximate), Expires: 08/29/2025 Start: 07-31-2025 End: 08-29-2025 Comprehensive metabolic 2000 panel - Serum or Plasma Comprehensive metabolic panel Lab Routine Hypertension, unspecified type Wellness examination Expected: 07/31/2025 (Approximate), Expires: 08/29/2025 [facility] Comment on above: Expected: 07/31/2025 (Approximate), Expires: 08/29/2025 Start: 07-31-2025 End: 08-29-2025 Lipid 1996 panel - Serum or Plasma Lipid panel Lab Routine Wellness examination Lipid screening Expected: 07/31/2025 (Approximate), Expires: 08/29/2025 [facility] Comment on above: Expected: 07/31/2025 (Approximate), Expires: 08/29/2025 Start: 07-30-2025 End: 07-30-2025 Patient encounter procedure 07/30/2025 3:40 PM EDT Office Visit [facility] [address] [place] [address] Nay Beltran DO [address] [place] [address] Arrived [facility] 230 Comment on above: Arrived Start: 07-27-2025 Influenza vaccination [facility] Start: 07-15-2025 End: 07-15-2025 Patient encounter procedure 07/15/2025 3:30 PM EDT Routine [facility] [address] [phone] Nathan Pop DO [address] [place] [address] [facility] Start: 07-15-2025 End: 07-15-2025 Professional / ancillary services management 07/15/2025 2:30 PM EDT Ancillary Procedure [facility] [address] [facility] [place] [phone] [facility] Start: 07-15-2025 End: 07-15-2026 CBC panel - Blood by Automated count CBC Lab Routine Diabetes mellitus screening Expected: 07/15/2025 (Approximate), Expires: 07/15/2026 [facility] Work Phone: Comment on above: Expected: 07/15/2025 (Approximate), Expires: 07/15/2026 Start: 07-15-2025 End: 07-15-2026 Measurement of glucose 1 hour after glucose challenge for glucose tolerance test Glucose tolerance, 1 hour Lab Routine Diabetes mellitus screening Expected: 07/15/2025 (Approximate), Expires: 07/15/2026 [facility] Comment on above: Expected: 07/15/2025 (Approximate), Expires: 07/15/2026 Start: 06-22-2025 End: 06-22-2025 Patient encounter procedure 06/22/2025 2:10 PM EDT Routine [facility] [address] [phone] Nathan Pop DO [address] [place] [address] Arrived [facility] Comment on above: Arrived Start: 06-22-2025 End: 12-23-2025 Alpha fetoprotein, maternal Alpha fetoprotein, maternal Lab Routine Second trimester ([facility]) 17 weeks gestation of ([facility]) Expected: 06/22/2025 (Approximate), Expires: 12/23/2025 [facility] Comment on above: Expected: 06/22/2025 (Approximate), Expires: 12/23/2025 Start: 06-22-2025 End: 09-22-2025 US for US OB 14+ weeks anatomy scan Imaging Routine Screening, , for anatomic survey ([facility]) Expected: 06/22/2025, Expires: 09/22/2025 [facility] Work Phone: Comment on above: Expected: 06/22/2025 , Expires: 09/22/2025 Start: 05-25-2025 End: 05-25-2025 Patient encounter procedure 05/25/2025 2:40 PM EDT Routine [facility] [address] [place] [id number] Nathan Pop, DO [address] [place] [address] [facility] Start: 05-01-2025 End: 05-01-2026 ABO/Rh ABO/Rh Lab Routine Missed menses , unspecified gestational age Expected: 05/01/2025 (Approximate), Expires: 05/01/2026 [facility] Comment on above: Expected: 05/01/2025 (Approximate), Expires: 05/01/2026 Start: 05-01-2025 End: 05-01-2026 Blood type and Indirect antibody screen panel - Blood Type and screen Lab Routine Missed menses , unspecified gestational age Expected: 05/01/2025 (Approximate), Expires: 05/01/2026 [facility] Work Phone: Comment on above: Expected: [...] above: Arrived Start: 07-27-2024 Influenza [facility] Start: 07-22-2024 End: 07-22-2025 US for US PELVIS-TRANSVAG IF INDICATED Imaging Routine Dysmenorrhea, unspecified Expected: 07/22/2024 (Approximate), Expires: 07/22/2025 [facility] Work Phone: Comment on above: Expected: 07/22/2024 (Approximate), Expires: 07/22/2025 Start: 06-23-2024 End: 06-23-2024 Patient encounter procedure 06/23/2024 10:30 AM EDT Office Visit Obstetrics/Gynecology [address] [address] Charlene Rodriguez DO [address] [place] [address] 2 WEEK POST OP Obstetrics/Gynecolo gy Comment on above: 2 WEEK POST OP Start: 05-27-2024 End: 05-27-2024 Admission to same day surgery center 05/27/2024 7:30 AM EDT - 05/27/2024 9:30 AM EDT [facility] [address] [place] [address] Charlene Rodriguez DO [address] [place] [address] LAPAROSCOPY FULGURATION OR EXCISION OF LESIONS OF THE OVARY PELVIC VISCERA OR PERITONEAL SURFACE BY ANY METHOD [facility] Comment on above: LAPAROSCOPY FULGURAT ION [...] physician 05/27/2024 7:30 AM EDT Hospital Encounter [facility] [address] [place] [address] Charlene Rodriguez DO [address] [place] [address] Endometriosis [N80.9] [facility] Comment on above: Endometriosis [N80.9 ] Start: 05-25-2024 Influenza vaccination Influenza Vacc ine (#1) [facility] Comment on above: Postponed from 07/27 (Patient Refused) Start: 05-20-2024 End: 05-20-2024 ambulatory 05/20/2024 10:00 AM EDT [facility] Emergency Department Health WORKFORCE MANAGEMENT ANALYST UROL MARCELLUS [facility] [address] [address] [place], [facility] Information Clerk Nurse [address] [address] RN TEACHING WORKFORCE MANAGEMENT ANALYST [facility] Comment on above: RN TEACHING Start: 04-22-2024 End: 04-22-2024 Patient encounter procedure 04/22/2024 9:00 AM EDT Office Visit [facility] [address] [place] [phone] Cruz Rodríguez MD [address] [place] [address] [facility] Start: 2024 DTaP,Tdap and Td Vac cines (7 - Td or Tdap) DTaP,Tdap and Td Vaccines (7 - Td or Tdap) [facility] Start: 2024 DTaP/Tdap/Td Vaccine s (7 - Td or Tdap) DTaP/Tdap/Td Vaccines (7 - Td or Tdap) [facility] Start: 2024 Urine microalbumin profile DTa P,Tdap,Td Vaccine (7 - Td or Tdap) [facility] Start: 01-30-2024 End: 01-30-2024 Patient encounter procedure 01/30/2024 11:10 AM EST Consult [facility] [address] [place] [phone] Nathan Pop, DO [address] [facility] [address] [place], [place] [phone] [facility] Start: 01-15-2024 End: 01-15-2024 Professional / ancillary services management 01/15/2024 8:00 AM EST Ancillary Procedure [facility] [address] [place] [phone] [facility] Start: 01-10-2024 End: 01-10-2025 US for US PELVIS-TRANSVAG IF INDICATED Imaging Routine Pelvic pain in female Expected: 01/10/2024 (Approximate), Expires: 01/10/2025 [facility] Work Phone: Comment on above: Expected: 01/10/2024 (Approximate), Expires: 01/10/2025 Start: 11-26-2023 Behavioral Health Screening Behavioral Health Screening [facility] Start: 11-26-2023 Depression Assessment Depression Ass essment [facility] Start: 07-27-2023 Covid-19 Vaccine ( season) Covid-19 Vaccine ( season) [facility] Start: 07-27-2023 Influenza vaccination [facility] Start: 11-26-2022 DEPRESSION ASSESSMENT DEPRESSION ASS ESSMENT [facility] Start: 07-27-2022 Influenza vaccination Influenza Vacc ine (#1) [facility] Start: 05-23-2022 FUV, Provider: Charlene Rodriguez, Status: Pen, Time: 1:30 PM FUV, Provider: Charlene Rodriguez, Status: Pen, Time: 1:30 PM [id number] Work Phone: Start: 08-16-2021 FUV, Provider: Charlene Rodriguez, Status: Eric, Time: 11:15 AM FUV, Provider: Charlene Rodriguez, Status: Eric, Time: 11:15 AM [id number] Work Phone: Start: 2016 PAP TESTING PAP TESTING [facility] Start: 2016 Screening for malign ant neoplasm of cervix [facility] Start: 2014 DTaP,Tdap and Td Vac cines (1 - Tdap) DTaP,Tdap and Td Vaccines (1 - Tdap) [facility] Start: 2014 DTaP/Tdap/Td Vaccine s (1 - Tdap) DTaP/Tdap/Td Vaccines (1 - Tdap) [facility] Start: 2014 Urine microalbumin profile [facility] Start: 2013 Adult BMI Screening Adult BMI Screen ing [facility] Start: 2013 ANNUAL PCP TEAM PHARMACY ORDER ENTRY TECHNICIAN RIGO DISEASE VISIT ANNUAL PCP TEAM CHRONIC DISEASE VISIT [facility] Start: 2013 BP CONTROLLED (<130/80) BP CONTROLLE D (<130/80) [facility] Start: 2013 HEPATITIS C SCREENING HEPATITIS C [facility] Start: 2013 Hepatitis C screening [facility] Start: 2013 HIV SCREENING HIV SCREENING [facility] Start: 2013 HIV screening HIV Screening [facility] Start: 2007 Depression Screening Depression Scre ening [facility] Start: 2007 Tobacco Screening Tobacco Screening [facility] Start: 05-31-2000 Varicella vaccination Varicell a Vaccines (1 of 2 - 2-dose childhood series) [facility] Start: 1996 MMR Vaccines (1 of 1 - Standard series) MMR Vaccines (1 of 1 - Standard series) [facility] Start: 1996 Varicella vaccination Varicell a Vaccines (1 of 2 - 2-dose childhood series) [facility] Start: 1995 COVID-19 VACCINE (#1) COVID-19 VACCI NE (#1) [facility] Start: 1995 HEPATITIS B (1 of 3 - 3-dose series) HEPATITIS B (1 of 3 - 3-dose series) [facility] Start: 1995 Hepatitis B Vaccine (1 of 3 - 3-dose series) Hepatitis B Vaccine (1 of 3 - 3-dose series) [facility] Start: 1995 Hepatitis B Vaccines (1 of 3 - 3-dose series) Hepatitis B Vaccines (1 of 3 - 3-dose series) [facility] Start: 1995 Lipid panel Lipid Panel [facility] Bacteria identified in Urine by Culture Urine culture Microbiology Routine Missed menses Ordered: 05/01/2025 [facility] Comment on above: Ordered: 05/01/2025 CBC W Auto Different ial panel - Blood CBC and differential Lab Routine Missed menses , unspecified gestational age Ordered: 05/01/2025 [facility] Comment on above: Ordered: 05/01/2025 Cytology Cervical or vaginal smear or scraping study Pap Smear Pathology and Cytology Routine Well woman exam with routine gynecological exam Ordered: 08/18/2024 [facility] Work Phone: Comment on above: Ordered: 08/18/2024 Hemoglobin A1c/Hemoglobin.total in Blood Hemoglobin A1c Lab Routine Missed menses , unspecified gestational age Ordered: 05/01/2025 [facility] Comment on above: Ordered: 05/01/2025 Hepatitis B virus siddiqui rface Ag [Presence] in Serum or Plasma by Immunoassay Hepatitis B surface antigen Lab Routine Missed menses , unspecified gestational age Ordered: 05/01/2025 [facility] Comment on above: Ordered: 05/01/2025 Hepatitis C virus Ab [Presence] in Serum or Plasma by Immunoassay Hepatitis C antibody Lab Routine Missed menses , unspecified gestational age Ordered: 05/01/2025 [facility] Comment on above: Ordered: 05/01/2025 HIV-1/HIV-2 antigen/antibody combination immunoassay HIV-1 and HIV-2 antibodies Lab Routine Missed menses , unspecified gestational age Ordered: 05/01/2025 [facility] Comment on above: Ordered: 05/01/2025 End: 06-15-2024 Mri pelvis w/o & w/contrast material MRI FEMALE PELVIS WO/W IVCON Radiology Routine Pelvic and perineal pain 1 Occurrences starting 05/17/2023 until 06/15/2024 [facility] Work Phone: Comment on above: 1 Occurrences starti ng 05/17/2023 until 06/15/2024 Reagin Ab [Presence] in Serum by RPR RPR Lab Routine Missed menses , unspecified gestational age Ordered: 05/01/2025 [facility] Comment on above: Ordered: 05/01/2025 Rubella antibody, IgG Rubella an tibody, IgG Lab Routine Missed menses , unspecified gestational age Ordered: 05/01/2025 [facility] Comment on above: Ordered: 05/01/2025 End: 11-30-[address] [facility] Work Phone: Comment on above: Once (Lab) for 1 Occ urrences starting 11/30/2022 until 11/30/2022, 1 [facility] [place] Immunizations Immunization Date Immunization Notes Care Provider [facility] 09-11-2014 hepatitis A vaccine, adult dosage Nathan Kiesha DO Work Phone: [facility] 09-11-2014 human papilloma viru s vaccine, quadrivalent Nathan Kiesha DO Work Phone: [facility] 09-11-2014 influenza, seasonal, injectable, preservative free Nathan Kiesha DO Work Phone: [facility] 09-11-2014 influenza virus vaccine, unspecified formulation Tonia Moschella DO Work Phone: [facility] 05-04-2014 human papilloma viru s vaccine, quadrivalent Nathan Kiesha DO Work Phone: [facility] 2014 hepatitis A vaccine, adult dosage Nathan Kiesha DO Work Phone: [facility] 2014 human papilloma viru s vaccine, quadrivalent Nathan Kiesha DO Work Phone: [facility] 2014 tetanus toxoid, redu quinton diphtheria toxoid, and acellular pertussis vaccine, adsorbed Nathan Kiesha DO Work Phone: [facility] 04-03-2007 meningococcal polysaccharide (groups A, C, Y and W-135) diphtheria toxoid conjugate vaccine (MCV4P) Nathan Kiesha DO Work Phone: [facility] 05-03-2000 diphtheria, tetanus toxoids and acellular pertussis vaccine, unspecified formulation Nathan Kiesha DO Work Phone: [facility] 05-03-2000 measles, mumps and rubella virus vaccine Nathan Kiesha DO Work Phone: [facility] 05-03-2000 poliovirus vaccine, inactivated Nathan Kiesha DO Work Phone: [facility] 12-29-1997 diphtheria, tetanus toxoids and acellular pertussis vaccine, unspecified formulation Nathan Kiesha DO Work Phone: [facility] 08-01-1996 DTP-Haemophilus influenzae type b conjugate vaccine Nathan Kiesha DO Work Phone: [facility] 08-01-1996 hepatitis B vaccine, pediatric or pediatric/adolescent dosage Nathan Kiesha DO Work Phone: [facility] 08-01-1996 measles, mumps and rubella virus vaccine Nathan Kiesha DO Work Phone: [facility] 08-01-1996 trivalent poliovirus vaccine, live, oral Nathan Kiesha DO Work Phone: [facility] 1995 DTP-Haemophilus influenzae type b conjugate vaccine Nathan Kiesha DO Work Phone: [facility] 1995 hepatitis B vaccine, pediatric or pediatric/adolescent dosage Nathan Kiesha DO Work Phone: [facility] 1995 trivalent poliovirus vaccine, live, oral Nathan Kiesha DO Work Phone: [facility] 1995 DTP-Haemophilus influenzae type b conjugate vaccine Nathan Cabrerao DO Work Phone: [facility] 1995 hepatitis B vaccine, pediatric or pediatric/adolescent dosage Nathan Kiesha DO Work Phone: [facility] 1995 trivalent poliovirus vaccine, live, oral Nathan Cabrerao DO Work Phone: [facility] NEGATED: Highlighted row has not occurred!12-02-2022 measles, mumps and rubella virus vaccine Ritu Ryder DO Work Phone: [facility] Comment on above: Deferred: Other - Ru haja Immune NEGATED: Highlighted row has not occurred!12-02-2022 tetanus toxoid, reduced diphtheria toxoid, and acellular pertussis vaccine, adsorbed Ritu Ryder DO Work Phone: [employer] Comment on above: Deferred: No longer needed - Refused Tdap vaccine. Payers Date Payer Category Payer Self-pay 2024 Commercial Managed Care - [employer] [id number] 2024 Private Health Insurance [employer] [id number] 2024 Unknown [id number] 2022 Medicaid HMO [facility] MEDICAID [id number] 2022 Medicaid [id number] 2022 Unknown 2022 Unknown [id number] 2020 Unknown [id number] 2018 Medicaid [id number] 2018 Private Health Insurance [id number] 1995 Unknown [id number] 2.16.840.1.079681.3.579. 2.174 1995 Unknown [id number] 2.16.840.1.824234.3.579. 2.174 1995 Unknown [id number] 2.16.840.1.530420.3.579. 2.727 1995 Unknown [id number] 2.16.840.1.349561.3.579. 2.727 1995 Unknown [id number] 2.16.840.1.254930.3.579. 2.727 1995 Unknown [id number] 2.16.840.1.838357.3.579. 2.727 1995 Unknown [id number] 2.16.840.1.269767.3.579. 2.727 1995 Unknown [id number] 2.16.840.1.180672.3.579. 2.1258 1995 Unknown [id number] 2.16.840.1.197374.3.579. 2.9 1995 Unknown [id number] 2.16.840.1.301113.3.579. 2.1258 1995 Unknown [id number] 2.16.840.1.644413.3.579. 2.1258 1995 Unknown [id number] 2.16.840.1.365045.3.579. 2.1258 1995 Unknown [id number] 2.16.840.1.700503.3.579. 2.1258 1995 Unknown [id number] 2.16.840.1.131639.3.579. 2.1258 1995 Unknown [id number] 2.16.840.1.890092.3.579. 2.1258 1995 Unknown [id number] 2.16.840.1.807693.3.579. 2.1258 1995 Unknown [id number] 2.16.840.1.077333.3.579. 2.9 1995 Unknown [id number] 2.16.840.1.589202.3.579. 2.1258 1995 Unknown [id number] 2.16.840.1.884807.3.579. 2.727 Unknown [id number] 2.16.840.1.938743.3.579. 2.531 Social History Date Type Detail Facility Start: 07-16-2023 End: 12-29-2024 Always uses seat belt Always uses seat belt [facility] Start: 03-10-2021 End: 05-01-2023 Tobacco smoking status Never smoked tobacco (finding) [facility] Tobacco smoking status Never [facility] Start: 07-16-2023 End: 12-29-2024 Sex Assigned At Female [facility] Renae Sanera Other Tobacco [facility] Comment on above: denies. Tobacco smoking status [facility] Start: 04-11-2023 End: 05-01-2023 Tobacco use and exposure Smokeless tobacco non-user [facility] Start: 04-11-2023 End: 12-10-2023 Alcohol intake Current drinker of alcohol (finding) [facility] Start: 10-08-2020 Alcohol Comment maybe a few dr martinez a month [facility] Start: 1995 Sex Assigned At Not on file S [facility] Start: 01-10-2024 End: 08-27-2025 Alcohol intake Lifetime non-drinker (finding) [facility] Within the last year , have [...] History SDOH IPV Fear 2 S [facility] Start: 11-28-2022 History SDOH Housing Places Lived 1 [facility] Start: 04-12-2022 [facility] th Start: 11-18-2022 End: 12-05-2022 Exposure to SARS-CoV-2 (event) Not sure [facility] Are you now , , , , never or living with a partner? [facility] Do you feel stress - tense, restless, nervous, or anxious, or unable to sleep at night because your mind is troubled all the time - these days [OSQ] Only a little [facility] Start: 12-02-2018 End: 02-03-2025 Sex Female (finding) [facility] Start: 1995 Sex Assigned At Female F [facility] Start: 08-19-2025 Alcoholic beverage intake Current non-drinker of alcohol (finding) [facility] Procedure Code Equipment Code Equipment Origin al Text Equipment Identifier Dates 1 strip by In Vi tro route Daily Use in the morning prior to breakfast, 1 hour after each meal for a total of 4times daily. [id number] Start: 08-20-2025 End: 09-19-2025 1 each by In Vit ro route Daily Use to check FSBS four times daily [id number] Start: 08-20-2025 End: 09-19-2025 Functional Status Date Assessment Result Facility 07-30-2025 Patient Health Quest ionnaire 2 item (PHQ-2) [Reported] [facility] 09-12-2023 Functional Status N/A [facility] 01-31-2023 Functional Status N/A [facility] 12-30-2022 Functional Status N/A [facility] 11-27-2022 Functional Status N/A [facility] 07-14-2022 N/A [facility] Clinical Notes 04-18-2022 to 08-27-2025 Marbella Keane NP - 08/27/2025 3:20 PM EDTGroup Note - Kelrine Steiner RD - 08/24/2025 1:30 PM EDTGroup Note - Kerline Steiner RD - 08/24/2025 1:30 PM EDTMarbella Keane NP - 08/12/2025 2:40 PM EDT Note Date & Type Note Facility 08-27-2025 History of Presen t illness Narrative Reason for Appointment: Patient ID: Driss Gama is a 30 y.o. female who presents for Routine Visit Patient presents today for Return OB appointment. MEDICATIONS Current Outpatient Medications Medication Instructions Alcohol Swabs (Alcohol Prep Pad) 70 % pads 1 Pad, Topical, Daily, Use four times daily to check FSBS. Blood Glucose Monitoring Suppl ([email or web address] Glucometer) w/Device kit 1 kit, Does not [...] Date APPENDECTOMY 05/2016 at [facility] 12/2022 retained placenta DISTAL [...] nursing note reviewed. Exam conducted with a seafood team member present. Vitals: Estimated body mass index is 29.23 kg/m as calculated from the following: Height as of 07/30/25: 5' 2 . Weight as of this encounter: 159 lb 12.8 oz. BP: (!) 158/92 Patient's last menstrual period was 02/21/2025. ASSESSMENT & PLAN ICD-10-CM 1. 26 weeks gestation of ([facility]) Z3A.26 POCT urinalysis dipstick manually resulted 2. Second trimester ([facility]) Z34.92 Return OB: Patient presents today for [...] labs and have her evaluated today at [facility] OB. I discussed with OB today and they are aware that patient is coming to be evaluated. Orders Placed This Encounter Procedures POCT urinalysis dipstick manually resulted Follow Up: Patient is to return to office in 2 week for routine OB appointment. Documented by Marbella Keane NP on behalf of: Marbella Keane NP documented in this encounter [facility] 08-24-2025 Group counseling note Patient: Driss Gama Date: 08/24/2025 Vitals: 08/24/25 1555 Weight: 73 [...] Face to face time was 80 minutes. [facility] Work Phone: 08-24-2025 Miscellaneous Notes Patient: Driss Gama Date: 08/24/2025 Vitals: 08/24/25 1555 Weight: 73 [...] was 80 minutes. documented in this encounter [facility] 08-12-2025 History of Presen t illness Narrative [...] San infection Headache History of menstrual cramps ([facility]) Varicella zoster Visual impairment HISTORY PAST MEDICAL HISTORY SOCIAL HISTORY Past Medical History: Diagnosis Date Amenorrhea d/t oral contraceptive pills Endometriosis [facility] infection Headache History of menstrual cramps severe Hypertension ([facility]) x1 Varicella zoster unsure Visual [...] Date APPENDECTOMY 05/2016 at [facility] 12/2022 retained placenta DISTAL [...] nursing note reviewed. Exam conducted with a seafood team member present. Vitals: Estimated body mass index is 27.82 kg/m as calculated from the following: Height as of 07/30/25: 5' 2 . Weight as of this encounter: 152 lb 1.9 oz. BP: 138/82 Patient's last menstrual period was 02/21/2025. ASSESSMENT & PLAN ICD-10-CM 1. 24 weeks gestation of ([facility]) Z3A.24 POCT urinalysis dipstick manually resulted 2. Second trimester ([facility]) Z34.92 POCT urinalysis dipstick manually [...] on Labetalol 100mg BID. Will refer to [facility] for evaluation. Patient denies any Headache or blurred vision. Documented by Marbella Keane NP on behalf of: Nathan Pop DO documented in this encounter [facility] 07-30-2025 History of Presen t illness Narrative [...] infection Headache History of menstrual cramps Hypertension ([facility]) Varicella zoster Visual impairment Objective ?Quick Links [...] Lipid panel; Future documented in this encounter [facility] 07-15-2025 History of Presen t illness Narrative [...] Date APPENDECTOMY 05/2016 at [facility] 12/2022 retained placenta DISTAL [...] nursing note reviewed. Exam conducted with a seafood team member present. Vitals: Estimated body mass index is 26.48 kg/m as calculated from the following: Height as of 12/30/24: 5' 2 . Weight as of this encounter: 144 lb 12.8 oz. BP: 120/80 Patient's last menstrual period was 02/21/2025. ASSESSMENT & PLAN ICD-10-CM 1. 20 weeks gestation of ([facility]) Z3A.20 POCT urinalysis dipstick manually resulted 2. Second trimester ([facility]) Z34.92 POCT urinalysis dipstick [...] Pop DO documented in this encounter [facility] 06-22-2025 History of Presen t illness Narrative [...] Date APPENDECTOMY 05/2016 at [facility] 12/2022 retained placenta DISTAL [...] nursing note reviewed. Exam conducted with a seafood team member present. Vitals: Estimated body mass index is 26.73 kg/m as calculated from the following: Height as of 25: 5' 2 . Weight as of this encounter: 146 lb 1.9 oz. BP: 118/74 Patient's last menstrual period was 02/21/2025. ASSESSMENT & PLAN (Z34.92) Second trimester ([facility]) Plan: POCT urinalysis dipstick manually resulted, Alpha fetoprotein, maternal, Alpha fetoprotein, maternal (Z3A.17) 17 weeks gestation of ([facility]) Plan: POCT urinalysis dipstick manually resulted, Alpha fetoprotein, maternal, Alpha fetoprotein, maternal (Z36.89) Screening, , for anatomic survey ([facility]) Plan: US OB 14+ weeks anatomy scan [...] Pop DO documented in this encounter [facility] 05-25-2025 History of Presen t illness Narrative [...] Date APPENDECTOMY 05/2016 at [facility] 12/2022 retained placenta DISTAL [...] nursing note reviewed. Exam conducted with a seafood team member present. Vitals: Estimated body mass index is 25.24 kg/m as calculated from the following: Height as of 12/30/24: 5' 2 . Weight as of this encounter: 138 lb. BP: 122/80 Patient's last menstrual period was 02/21/2025. ASSESSMENT & PLAN ICD-10-CM 1. Second trimester ([facility]) Z34.92 POCT urinalysis dipstick manually resulted 2. 13 weeks gestation of ([facility]) Z3A.13 Return OB: Patient presents today for [...] Pop DO documented in this encounter [facility] 05-01-2025 History of Presen t illness Narrative [...] Date APPENDECTOMY 05/2016 at [facility] 12/2022 retained placenta DISTAL [...] or undercooked meat, and [facility]. Patient has also been advised to not [...] Hina Go LPN documented in this encounter [facility] 01-19-2025 History of Presen t illness Narrative Reason for Appointment: Patient ID: Driss Gama is a 29 y.o. female who presents for Painful Pritchett Patient presents today for Consult appointment. MEDICATIONS Current Outpatient Medications Medication Instructions uemkloegba-bvlytirpgasah-ywvmku ne 50-325-40 MG tablet 1 tablet, Oral, [...] Dysmenorrhea 03/29/2023 Endometriosis 03/29/2023 Gastroparesis 03/29/2023 Hypertension ([facility]/HCC) 03/29/2023 Intractable migraine without aura and with status migrainosus ([facility]/HCC) 03/29/2023 Migraines ([facility]/HCC) 03/29/2023 Chronic pelvic pain in female 03/29/2023 Pain in female genitalia on intercourse 03/29/2023 Pain on swallowing 03/29/2023 Panic disorder ([facility]/HCC) 03/29/2023 Patellofemoral disorders, left knee 03/29/2023 Patellofemoral disorders, right knee 03/29/2023 Posterior calcaneal exostosis 03/29/2023 Scapular dyskinesis 03/29/2023 Scoliosis 03/29/2023 Seasonal allergic rhinitis due to pollen 03/29/2023 Tachycardia, paroxysmal ([facility]) 03/29/2023 Tension headache 03/29/2023 Vitamin [...] Headache History of menstrual cramps severe Hypertension ([facility]) x1 Varicella zoster unsure Visual [...] Date APPENDECTOMY 05/2016 at [facility] 12/2022 retained placenta DISTAL [...] nursing note reviewed. Exam conducted with a seafood team member present. Vitals: Estimated body mass index is [...] patient and patient given direct extension to Web Services Professional for any questions/concerns pertaining to fertility. 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 Current Outpatient Medications: vxeoglfmtq-tefprcpuxkbik-khdrki ne 50-325-40 MG tablet, Take 1 tablet by mouth every 6 (six) hours if needed for headaches, Disp: 20 tablet, Rfl: 0 desogestrel-ethinyl estradiol (Apri) 0.15-30 MG-MCG tablet, Take 1 tablet by mouth Daily, Disp: 21 tablet, Rfl: 12 metoprolol succinate XL (Toprol-XL) 25 MG 24 hr tablet, Take 1 tablet by mouth daily, Disp: 90 tablet, Rfl: 1 documented in this encounter [facility] 08-18-2024 History of Presen t illness Narrative Reason for Appointment: Patient ID: Driss Cope is a 29 y.o. female who presents for Well Women Visit Patient presents today for Annual Exam. MEDICATIONS Current Outpatient Medications Medication Instructions icoqdxotmw-mzeaheqrwjsqn-irmjoa ne 50-325-40 MG tablet 1 tablet, Oral, [...] Date APPENDECTOMY 05/2016 at [facility] 12/2022 retained placenta DISTAL [...] nursing note reviewed. Exam conducted with a seafood team member present. Vitals: Estimated body mass index is [...] Zenobia Gutierrez PA-C documented in this encounter [facility] 07-22-2024 History of Presen t illness Narrative Reason for Appointment: Patient ID: Driss Cope is a 29 y.o. female who presents for Dysmenorrhea Patient presents today for Acute Visit. MEDICATIONS Current Outpatient Medications Medication Instructions klqbimjnyg-pallbvdsnwtxl-vwqoiz ne 50-325-40 MG tablet 1 tablet, Oral, [...] 03/29/2023 Pain on swallowing 03/29/2023 Panic disorder ([facility]/HCC) 03/29/2023 Patellofemoral disorders, left knee 03/29/2023 Patellofemoral disorders, right knee 03/29/2023 Posterior calcaneal exostosis 03/29/2023 Scapular dyskinesis 03/29/2023 Scoliosis 03/29/2023 Seasonal allergic rhinitis due to pollen 03/29/2023 Tachycardia, paroxysmal ([facility]) 03/29/2023 Tension headache 03/29/2023 Vitamin [...] Headache History of menstrual cramps severe Hypertension ([facility]) x1 Varicella zoster unsure Visual [...] Date APPENDECTOMY 05/2016 at [facility] 12/2022 retained placenta DISTAL [...] nursing note reviewed. Exam conducted with a seafood team member present. Vitals: Estimated body mass index is [...] Pop DO documented in this encounter [facility] 04-29-2024 Telephone encounter Note Received message from albert Webb to cancel surgery and all appts as pt had services elsewhere [facility] 04-29-2024 Miscellaneous Notes Received message from albert Webb to cancel surgery and all appts as pt had services elsewhere documented in this encounter [facility] 04-25-2024 Telephone encounter Note Pt got in sooner for surgery with her local order processor. Please cancel surgery and all pre and post op appts. [facility] 04-25-2024 Miscellaneous Notes Pt got in sooner for surgery with her local order processor. Please cancel surgery and all pre and post op appts. documented in this encounter [facility] 01-10-2024 History of Presen t illness [...] Date APPENDECTOMY 05/2016 at [facility] 12/2022 retained placenta DISTAL [...] nursing note reviewed. Exam conducted with a seafood team member present. Vitals: Estimated body mass index is [...] Pop DO documented in this encounter [facility] 01-03-2024 Miscellaneous Notes Refill(s) request: Requested Prescriptions [...] mg tablet Class: Normal Route: ORAL Order: [id number] E-Prescribing Status: Receipt confirmed by pharmacy (05/17/2023 [...] may recur and often requires a terminal operations manager treatment plan. Once endometriosis is identified, there [...] Department Center 05/20/2024 10:00 AM Kevin Crenshaw Information Clerk [facility] 06/23/2024 10:30 AM Charlene Rodriguez DO [facility] Appointment scheduled: As listed above Action taken: Refill request routed to clinician Pippa Simon RN January 03, 2024 4:29 PM Patient: Driss Cope : 1995 Provider: Charlene Rodriguze DO Caller Phone #: [phone] (home) [phone] (cell) Reason for call: b/c refill Message routed to nurse triage Date of next visit: MEGAN: 12/10/2023 documented in this encounter [facility] 12-10-2023 Note HNO ID: [id number] Author: CHARLENE RODRIGUEZ DO Service: ? Author Type: Physician Type: Progress Notes Filed: 12/10/2023 15:14 Note Text: [facility] SECTION FOR MINIMALLY INVASIVE GYNECOLOGIC SURGERY OUTPATIENT VISIT DATE 12/10/2023 OUTPATIENT VISIT TYPE Follow-up visit PRIMARY CARE PHYSICIAN: Cruz Rodríguez [address] [place] [address] REFERRING PHYSICIAN: Self CHIEF COMPLAINT: No chief [...] MRI: no evidence of Past Gynecologic History: Information Clerk History LMP: 07/08/2023 (Exact Date), Having periods Age at Menarche: 14 Age at First : 27 Age at Menopause: Information Clerk History Comments: Sexual Activity: Never; No [...] today with pelvic (more content not included)... [facility] 09[facility]12[facility]2023 Hospital Discharg e instructions Patient [...] Follow these instructions at home: Medicines Take reak-ypa-lkmhbps and prescription medicines only as told by [...] buy a blood pressure monitor at most [employer] or online. Where to find more information [employer]: www.heart.org Contact a health care [...] provider. Document Revised: 07/27/2022 Document Reviewed: 07/27/2022 [facility] Patient Education 2022 [employer]. 09/12/2023 18:18:13 Hypertension, Adult, Lbjd-ai-Wfca Hypertension, Adult Hypertension is another name for [...] doctor. Keep all follow-up visits. Medicines Take hsng-sjd-byyjwmt and prescription medicines only as told by [...] provider. Document Revised: 08/31/2022 Document Reviewed: 08/31/2022 [facility] Patient Education 2022 [facility] 09/12/2023 18:18:13 General Headache Without Cause, Eoir-ad-Urks General Headache Without Cause A headache is pain or discomfort you feel around the head or neck area. There are many causes and types of headaches. In some cases, the cause may not be found. Follow these instructions at home: Watch your condition for any changes. Let your doctor know about them. Take these steps to help with your condition: Managing pain Take cbux-oxz-yfmaiye and prescription medicines only as told by [...] provider. Document Revised: 04/12/2022 Document Reviewed: 04/12/2022 [facility] Patient Education 2022 [employer]. Follow Up Care 09/12/2023 17:21:57 With:CRUZ RODRÍGUEZ [facility] [place] [address] Business (1) When:09/15/2023 18:03:37 Comments:Follow-up with your primary care provider in 3 to 5 days. If symptoms worsen, do not improve, or new symptoms arise please report back to emergency department for further evaluation. [facility] 09-12-2023 Evaluation + Plan note Extrac [...] date 09/12/23 18:02:00 EDT, 09/12/23 18:02:00 EDT [facility]10-16-2023 Instructions* Patient Instructions* Srinivasa Downs APRN.CNP - 09/10/2023 9:52 AM EDT Plan: Trial baclofen suppositories - can switch to pill vaginally if suppositories are not affordable Consider Pelvic floor physical therapy - can find local provider [email or web address] Consider going back to see Dr Kuldip Downs APRN.CNP [facility]23 NoteHNO ID: [id number] Author: Charlene Rodriguez DO Service: ? Author Type: Physician Type: Progress Notes Filed: 08/30/2023 11:15 AM Note Text: Tramadol rx sent to pharmacy.[facility]10-05-2023 History of Present illness Narrative* Charlene Rodriguez DO - 08/30/2023 11:13 AM EDT Tramadol rx sent to pharmacy. [facility] Miscellaneous Notes* Telephone Encounter - Chelsie Dueñas RN - 08/30/2023 10:50 AM EDT Last office visit: 08/24/2023 Assessment and Plan No diagnosis found. Trial baclofen suppositories Will send list of PTs Consider going back to Kuldip SIGNATURE: Srinivasa Downs APRN.ALTERNATIVE ENERGY ENGINEER Office visit with Dr. Rodriguez 07/16/2023 IMPRESSION: [...] plan. Charlene Rodriguez DO [facility]23 NoteHNO ID: [id number] Author: Srinivasa Downs APRN.ALTERNATIVE ENERGY ENGINEER Service: ? Author Type: Nurse Practitioner Type: Progress Notes Filed: 09/10/2023 9:53 AM Note Text: [facility] Department of Benign Gynecology [facility] PATIENT NAME: Driss Cope DATE: 08/24/2023 Patient Name and verified: Yes Patient Location: [place] This Virtual Visit was completed using My Chart Zoom platform. I have communicated my name and active licensure. The patient's identity and physical location were verified at the time of this visit. Either the patient or their legal vendor representatives has been informed of the risks and [...] appointment yet. GI - constipation is improved Pritchett - hasn't tried due to pain and [...] physical therapy - or can go locally [facility]IntervalZero Trial flexeril at bedtime Can consider Baclofen suppositories Continue Norethindrone - can take up to 3 months for it to stop periods, take at same time every day Relaxation techniques Srinivasa Downs APRN.ALTERNATIVE ENERGY ENGINEER OB History T0 L1 SAB0 IAB0 Ectopic0 Multiple0 Live Births0 Information Clerk History LMP: 07/08/2023 (Exact Date), Having periods Age at Menarche: 14 Age at First : 27 Age at Menopause: Information Clerk History Comments: Sexual Activity: Never; No [...] toxic appearing HEENT nor (more content not included)...[facility] History of Present illness Narrative* Srinivasa Downs APRN.ANA LAURA - 08/24/2023 9:24 AM EDT Images from the original note were not included. [facility] Department of Benign Gynecology [facility] PATIENT NAME: Driss Cope DATE: 08/24/2023 Patient Name and verified: Yes Patient Location: [place] This Virtual Visit was completed using My Chart Zoom platform. I have communicated my name and active licensure. The patient's identity and physical location wereverified at the time of this visit. Either the patient or their legal vendor representatives has been informed of the risks and [...] appointment yet. GI - constipation is improved Pritchett - hasn't tried due to pain and [...] physical therapy - or can go locally [facility] Trial flexeril at bedtime Can consider Baclofen suppositories Continue Norethindrone - can take up to 3 months for it to stop periods, take at same time every day Relaxation techniques Srinivasa Downs APRN.ALTERNATIVE ENERGY ENGINEER OB History T0 L1 SAB0 IAB0 Ectopic0 Multiple0 Live Births0 Information Clerk History LMP: 07/08/2023 (Exact Date), Having periods Age at Menarche: 14 Age at First : 27 Age at Menopause: Information Clerk History Comments: Sexual Activity: Never; No [...] 3 - Low [facility] Miscellaneous Notes* Telephone Encounter - Marilee [...] Provider: Charlene Rodriguez DO Caller Phone #: [phone] (home) [phone] (cell) Reason for call: pt calling regarding mc message., still in pain. Please call [phone] Message routed to nurse triage Date of next visit: documented in [facility] encounter[facility] Miscellaneous Notes* Telephone Encounter - Christa Suárez RN - 08/02/2023 11:29 AM EDT PA for orilissa completed via Cover MyMeds. Driss Cope (Morales: [id number]) - [phone] Orilissa 150MG tablets Status: Sent To Plan [...] Please advise. Thanks. documented in this encounterMer[facility]08-[facility]-2023 NoteHNO ID: [id number] Author: Charlene Rodriguez, DO Service: ? Author Type: Physician Type: Progress Notes Filed: 07/16/2023 12:41 PM Note Text: [facility] SECTION FOR MINIMALLY INVASIVE GYNECOLOGIC SURGERY OUTPATIENT VISIT DATE 07/16/2023 OUTPATIENT VISIT TYPE Follow-up visit PRIMARY CARE PHYSICIAN: Cruz Rodríguez [address] [place] [address] REFERRING PHYSICIAN: Cruz Rodríguez CHIEF COMPLAINT: No [...] additional bowel lesions identified Past Gynecologic History: Information Clerk History LMP: 07/08/2023 (Exact Date), Having periods Age at Menarche: 14 Age at First : 27 Age at Menopause: Information Clerk History Comments: Sexual Activity: Never; No [...] Signs: 07/16/23 1115 BP: (more content not included)...[facility] History of Present illness Narrative* Boo [...] 2023 4:32 PM documented in this encounterMer[facility]-2023 NoteHNO ID: [id number] Author: Rosio Malcolm RT(R) Service: ? Author Type: Flame Cutting Supervisor Type: Progress Notes Filed: 06/12/2023 4:32 [...] BY: RT Claudia(Bryant) June 12, 2023 4:32 [facility]CK[facility]23 NoteHNO ID: [id number] Author: Boo Singh RN Service: Nursing Author [...] Cope DATE: June 12, 2023 TIME: 1:43 [facility]06-22-2023 NoteHNO ID: [id number] Author: Charlene Rodriguez, DO Service: ? Author Type: Physician Type: Progress Notes Filed: 05/21/2023 10:15 AM Note Text: [facility] SECTION FOR MINIMALLY INVASIVE GYNECOLOGIC SURGERY OUTPATIENT [...] to appointment last week Past Gynecologic History: Information Clerk History LMP: 04/22/2023 (Exact Date), Having periods Age at Menarche: 14 Age at First : 27 Age at Menopause: Information Clerk History Comments: Sexual Activity: Never; No [...] treatment plan. Charlene Rodriguez DO Tt: [facility]Do[facility]06-[facility] History of Present illness Narrative* Charlene Rodriguez DO - 05/17/2023 1:05 PM EDT Images from the original note were not included. [facility] SECTION FOR MINIMALLY INVASIVE GYNECOLOGIC SURGERY OUTPATIENT [...] to appointment last week Past Gynecologic History: Information Clerk History LMP: 04/22/2023 (Exact Date), Having periods Age at Menarche: 14 Age at First : 27 Age at Menopause: Information Clerk History Comments: Sexual Activity: Never; No [...] Tt: 20 minutes documented in this encounterMer[facility]06-[facility]-2023 Miscellaneous Notes* Telephone Encounter - Christa Suárez RN - 05/11/2023 4:19 PM EDT Reports vaginal bleeding, using panty liners, changing a few times a day, not severe. Biggest complaint is cramping. Has had 3 periods of bleeding recently - 04/22/2023 LMP, last a few days, 05/04-05/10 bleeding again 05/11/2023 started again today. Takes aygestin 5mg daily. She did not pear picker flexeril. Encourage to pear picker the flexeril as this will help with the cramping. Reviewed red flag bleeding symptoms that require trip to ER (soaking greater than one overnight padper hour, chest pain, shortness of breath, fatigue, palpitations).. Advised keep appt. Gives verbal understanding. Appointments for Next 60 Days Date Time Provider Location Dept Phone 05/17/2023 1:00 PM CHARLENE RODRIGUEZ [facility] [phone] Christa Suárez RN * Telephone Encounter - Tawana Nair [facility] - 05/11/2023 1:19 PM EDT Reason for call: other - Vaginal bleeding Provider name: Dr Rodriguez Additional comments: patient having more vaginal bleeding and concerned she is getting worse. Recommendation: routed to nurse triage pool documented in this encounterMer[facility]06-06-2023 Instructions* Patient Instructions* Srinivasa Downs APRN.CNP - 05/01/2023 11:47 AM EDT Plan Pelvic floor physical therapy - or can go locally pelvicThe [facility] [employer].IntervalZero Trial flexeril at bedtime Can consider Baclofen [...] pain society ([email or web address].org) documented in this encounterMer[facility]06-06-2023 History of Present illness Narrative* Srinivasa Downs APRN.ALTERNATIVE ENERGY ENGINEER - 05/01/2023 10:30 AM EDT Driss Cope is a 28 year old female who presents for problem visit for pain HPI: Pain is week before period and week of period. Worse on her period for every day she's bleeding Urinary - No symptoms GI - Always constipated. No meds Pritchett - painful always Pain is on left [...] L0 SAB0 IAB0 Ectopic0 Multiple0 Live Births0 Information Clerk History LMP: 03/26/2023 (Approximate), Having periods Age at Menarche: Age at First : Age at Menopause: Information Clerk History Comments: Sexual Activity: Never; No [...] physical therapy - or can go locally pelvicGoAlbertabImmunoGen Trial flexeril at bedtime Can consider Baclofen [...] 4 - Moderate documented in this encounterMer[facility]06-06-2023 NoteHNO ID: [id number] Author: Srinivasa Downs APRN.CNP Service: ? Author Type: Nurse Practitioner Type: Progress Notes Filed: 05/09/2023 11:46 AM Note Text: Driss Cope is a 28 year old female who presents for problem visit for pain HPI: Pain is week before period and week of period. Worse on her period for every day she's bleeding Urinary - No symptoms GI - Always constipated. No meds Pritchett - painful always Pain is on left [...] L0 SAB0 IAB0 Ectopic0 Multiple0 Live Births0 Information Clerk History LMP: 03/26/2023 (Approximate), Having periods Age at Menarche: Age at First : Age at Menopause: Information Clerk History Comments: Sexual Activity: Never; No [...] physical therapy - or can go locally [employer] Trial flexeril at bedtime Can consider [...] management Medical Decision Making Level: 4 - [facility] Miscellaneous Notes* Telephone Encounter - Marilee [...] Lucila Foss RN documented in this encounterMer[facility]03-[facility]23 Hospital Discharge instructions Patient Education 01/31/2023 [...] told by your health care provider. Take slyh-eaw-midhzqr and prescription medicines only as told by [...] 01/03/2007 Document Revised: 10/25/2018 Document Reviewed: 01/25/2018 [facility] Patient Education 2020 [employer]. Follow Up Care 01/31/2023 13:43:01 With:Cruz Meza Address:Unknown When:02/03/2023 18:59:31 Comments:Follow-up for evaluation of hypertension in context of known preeclampsia in the period With:CRUZ RODRÍGUEZ Address: [address] [place] [address]- Business (1) When:Within 3 Day(s) [facility]03-08-2023 Evaluation + Plan noteExtracted from: Title:ED Note Author:Mayur Mabry PA-C e:01/31/23 Flank pain (R10.9: Unspecifi ed abdominal pain) Headache (R51.9: Headache, unspecified) Orders: CTA Chest Hepatic Function Panel [facility]02-04-2023 Hospital Discharge instructions Patient Education 12/30/2022 13:59:51 WORKFORCE MANAGEMENT ANALYST - Post D&C, Hysteroscopy, LEEP or Essure/Laparoscopy [...] Instructions - FT (Custom) (Custom) 12/30/2022 13:55:16 WORKFORCE MANAGEMENT ANALYST - Post D&C, Hysteroscopy, LEEP or Essure/Laparoscopy [...] With:Cruz Meza Address: [address], [address] [address]- Business (1) When: Unknown Comments:follow up in 1-2 weeks With:CRUZ RODRÍGUEZ Address: [address] [place] [address] Business (1) When:01/02/2023 09:21:18 [facility]02-04-2023 Evaluation + Plan noteExtracted from: Title:ANES [...] Note Author:Vamsi BLACKWELL, Bryant Barron Date:12/30/22 Plan [place] [employer] Anesthesiologists (ASA) physical status classification: [...] With Cult Reflex US Pelvis Non-OB Complete [facility]01-10-2023 History of Present illness Narrative* Tory Pimentel - 12/05/2022 1:35 PM EST Vital signs BP 127/87 Weight 149.2lb Pulse 106 Temp 96.7 * Tonia Dilalo DO - 12/05/2022 1:35 PM EST Images [...] WHC: This patient was seen in the [facility] by the resident. I reviewed and agree with the care provided by the resident during or immediately following the visit including the patient's medical history, the resident's finding in the physical exam, patient's diagnosis and treatment plan. documented in this [facility]01-07-2023 NoteDepartment of Obstetrics and Gynecology Delivery Discharge Summary Admission on 11/28/2022 12:24 AM Hospital course: Driss Cope at 35w1d admitted as a transfer from [facility] for [facility]. She was started on Magnesium there and [...] for the patient's : Megan CopeMark Anthonysudha [[id number]] female 2425 g (5 lb 5.5 oz) Apgars: Information for the patient's : Francie Cope [[id number]] : Infant: Girl Blood Type/Rh: O Antibody [...] Your Medications These medications were sent to [facility] [address] [place] [address] Hours: Sunday to Sunday 10 am to 6 pm docusate sodium 100 MG capsule ibuprofen 600 MG tablet NIFEdipine XL 30 MG 24 hr tablet Activity: Activity as tolerated Diet: Regular diet Follow-up Appointments: - visit - Blood pressure check If a patient meets criteria for hypertension, make sure the following are done prior to discharge: [] Order a blood pressure kit through [facility] (or the patient's own pharmacy on the weekend) [] Order the blood pressure log through [employer] [x] Place an office visit or telephone [...] notify her physician if any of these occur.[facility]01-07-[facility] History of Present illness Narrative* Anna [...] with more than 50% of the total jbik-fn-rbmn time of the visit in counseling/coordination of [...] be monitored and followed by the diet general technician. CRISS Oshea * Alejandra Arcos RN [...] and reassuring. CCM. Cx:1/70/-3 FHT: Cat 1 [place]:q3-4 min A/P: 1. IOL-PreEwSF. FHT 130 baseline, with moderate variability, Accelerations present Yes, and rare late deceleration . Cervical exam unchanged. Cytotec x4 placed at this time. Patient intermittently feeling contractions. BP mild range. Cx: 1-270/-3 FHP: defer FHT: Cat I [place]: a3-4min A/P: 1. IOL-PreEwSF: FHT Category I, [...] Cx: unchanged FHP: defer FHT: Cat I Carpend[place]: q4min A/P: 1. IOL-PreEwSF: FHT Category I, [...] 11/29/2022 6:17 AM Cx:1-260/-3 FHT: Cat I Carpend[place]:q4-5mins A/P: 1. IOL-PreEwSF: Cat I FHT with [...] per protocol. CCM. Cx:defer FHT: Cat I Carpendale:q4-6mins A/P: 1. IOL-PreEwSF: Cat I FHT with baseline 120, moderate variability, spontaneous accelerations, and no decelerations. BP normotensive to mild range since last note time. Pitocin @ 2 cc/hr, continue to titrate per protocol. Magnesium sulfate running for seizure prophylaxis, UOP 400 ml over past 4hours. CCM. Cx:defer FHT: Cat I Carpendale:q4-5mins A/P: 1. IOL-PreEwSF: Cat I FHT with baseline 135, moderate variability, spontaneous accelerations, and no decelerations. BP normotensive to mild range since last note time. Pitocin @ 6 cc/hr, continue to titrate per protocol. Magnesium sulfate running for seizure prophylaxis, UOP 600 ml over past 4hours. Will plan for AROM soon. CCM. Cx:defer FHT: Cat I Carpendale:irritability A/P: 1. IOL-PreEwSF: Pit @ 8 mu/min. Patient resting comfortably and only irritability tracing on toco. BP most recently mild range. On magnesium sulfate for seizure prophylaxis. UOP adequate. Continue magnesium and continue to titrate pitocin per protocol. Plan for AROM once patient rudi more regularly. Electronically signed by Cortney Velasquez DO 11/29/2022 4:21 PM Cx:/-3 FHT: Cat 1 Carpendale:Not tracing A/P: 1. IOL-PreEwSF. FHT 135 baseline, with moderate variability, Accelerations present Yes, and nodecelerations seen . AROM at this time for moderate amount blood tinged fluid. Pitocin at 8cc/hr. Maternal BP mild range. On Magnesium for Seizure prophylaxis. Patient with adequate urinary output. [facility]. Cx: defer FHP: defer FHT: Cat II Carpendale: not tracing well A/P: 1. IOL-PreEwSF: FHT [...] per RN FHP: defer FHT: Cat II Carpendale: q4min A/P: 1. IOL-PreEwSF: FHT Category II [...] delivery note for details documented in this [facility]01-07-2023 Hospital course Narrative* César Tran DO - 12/02/2022 12:32 PM EST Images from the original note were not included. Department of Obstetrics and Gynecology Delivery Discharge Summary Admission on 11/28/2022 12:24 AM Hospital course: Driss Cope at 35w1d admitted as a transfer from [facility] for [facility]. She was startedon Magnesium there [...] Information for the patient's : Francie Cope [[id number]] female 2425 g (5 lb 5.5 oz) Apgars: Information for the patient's : Francie Cope [[id number]] : Infant: Girl Blood Type/Rh: O Antibody [...] Your Medications These medications were sent to [facility] [address] [place] [address] Hours: Sunday to Sunday 10 am to [...] a blood pressure kit through [facility] (or the patient's own pharmacy on the weekend) [] Order the blood pressure log through [employer] [x] Place an office visit or telephone [...] any of these occur. documented in this [facility]01-06-2023 Note* Care Coordination - Christine Michelle RN [...] home. Denies any concerns at this time. [facility] [id number] Note* Care Coordination - Christine Michelle RN [...] home. Denies any concerns at this time. [facility] [id number] Miscellaneous Notes* Care Coordination - Christine Michelle [...] pt. Due to: infant in [facility] breast pump, supplies kit, swabs and [...] to check with LC in [facility] for smaller flange sizes * L&D Delivery Note - Irina Kramer DO - 11/30/2022 4:04 AM EST Images from the original note were not included. Vaginal Delivery Note Department of Obstetrics and Gynecology Patient: Driss Cope : 1995 Date of delivery: 11/30/2022 Pre-operative Diagnosis: Driss Mojica0 at 35w1d 1. <37 weeks 2. PreEwSF Post-operative Diagnosis: Live Born female Delivering Windows Desktop Support & Vessel Crew Member(s): Dr. Bowden; Dr. Kramer Information: Information for the patient's : Francie Cope [[id number]] Information for the patient's : Francie Cope [[id number]] Description: normal Meconium Noted: No Anesthesia: epidural [...] change. Clotilde Mg RN documented in this [facility]01-06-2023 Obstetrics Note* Note - Ligia Bridges RN - 12/01/2022 9:00 AM EST 22.5mm flanges given to patient. Encouraged her to call for observation of pump session and smallerflanges. Martha in NICU to assist with personal pump. [id number] Discharge instructions* Discharge Instructions* Carol Bowden [...] as 8 weeks after delivery. Bleeding may pear picker and then decrease again around 7-10 [...] avoid constipation you may take a mild nfxb-dld-mnrmejt stool softener (such as colace) as recommended [...] positive or a Person Under Investigation (PUI) Sdllqc-ra-wmoeo transmission of COVID-19 during is unlikely, but after a baby is susceptible to kzlmbc-zs-kreidc spread. After your baby is born, your [...] clean your hands with an alcohol-based hand cell room supervisor that contains at least 60% alcohol. Clean your hands often Wash your hands often with soap and water for at least 20 seconds, especially after blowing your nose, coughing, or sneezing; going to the bathroom; and before eating or preparing food. If soap and water are not readily available, use an alcohol-based hand cell room supervisor with at least 60% alcohol, covering all [...] isolation precautions should be made on a ppob-kx-rdhx basis, in consultation with healthcare providers and [facility] local health departments. Information on COVID-19 for [...] respiratory tract signs and symptoms. Ways to [place] with Anxiety & Stress It is normal [...] an illness that was first found in [facility], in October 2019. It has since [...] seen in people before. This virus spreads zxkbyl-wx-kkccrl through droplets from coughing and sneezing. It [...] water aren't available, use an alcohol-based hand cell room supervisor. Call 911 anytime you think you may [...] of: February 25, 2020 Content Version: 12. [employer]. Care instructions adapted under license by your healthcare professional. If you have questions about a medical condition or this instruction, always ask your healthcare professional. [employer] disclaims any warranty or liability for your use of this information. General Recommendations for Routine Cleaning and Disinfection of Households Community members can practice routine cleaning of frequently touched surfaces (for example: tables, doorknobs, light switches, handles, desks, toilets, faucets, sinks) with household energy audit advisor and EPA-registered disinfectants that are appropriate for [...] appropriate. These supplies include tissues, paper towels, energy audit advisor and EPA-registered disinfectants (see list link at [facility] website). If a separate bathroom is not [...] be used for other purposes. Consult the fruit grower's instructions for cleaning and disinfection products used. [...] used if appropriate for the surface. Follow fruit grower's instructions for application and proper ventilation. Check [...] water Products with EPA-approved emerging viral pathogens excela [facility] hospitalf iconexternal icon are expected to be effective against COVID-19 based on data for harder to kill viruses. Follow the fruit grower's instructions for all cleaning and disinfection products (e.g., concentration, application method and contact time, etc.). Soft (porous) surfaces such as carpeted floor, rugs, and drapes Remove visible contamination if present and clean with appropriate energy audit advisor indicated for use on these surfaces. After cleaning: Launder items as appropriate in accordance with the fruit grower's instructions. If possible, launder items using the [...] items as appropriate in accordance with the fruit grower's instructions. If possible, launder items using the warmest appropriate water setting for the items and dry items completely. Dirty laundry from an ill person can be washed with other people's items. Clean and disinfect clothes hampers according to guidance above for surfaces. If possible, considerplacing a bag mender that is either disposable (can be thrown away) or can be laundered. CDC has a list of EPA approved cleaning products on their website - https://www.cdc.gov/coronavirus/ 2019-ncov/community/home/cleaning-disinfection.html https://www.[employer]/Jkntz-Sqnxozlbnlc-Bsegwtpl-Products-List.pdf [employer] Stores with delivery and pear picker services: [employer] [place]: Free pear picker at locations Delivery is $12.95 a month Website - [employer] [place]: Router Tender $2.95 (1st order is free) Delivery is $14.95 Website - [employer] [place]: baggage agent supervisor is free Delivery is $5.95 Website - [employer]: baggage agent supervisor is $4.95 Delivery is $9.95 Website [employer]: baggage agent supervisor is $4.95 Delivery is $9.95 Website [employer] Market: Can be ordered for delivery and pear picker with [employer] Website - www.[employer] [place] [employer]: Free deliver for first 3 orders of $35 or more Website - aldi.[employer] Will deliver from [employer], [employer], [employer], and [employer]. Annual membership is $99 Monthly membership is $14 * Attachments The following attachments cannot be sent through Care Everywhere. * Preeclampsia Discharge Instructions (Hungarian) documented in this encounterSOhioHealth [facility] Methodist [id number] Obstetrics Note* Note - Sheila Harrell RN - 11/30/2022 10:37 AM EST Swabs given to patient and educated how to use and to bring to CRISTIAN [facility] [id number] Obstetrics Note* Note - Sheila Harrell RN - 11/30/2022 10:30 AM EST Breast pump use indicated for this pt. Due to: in [facility] breast pump, supplies kit, swabs and [...] LC in [facility] for smaller flange sizes [facility] [id number] NotePatient: Driss Cope Procedure Summary Date: 11/29/22 [...] discharged once all PACU criteria has been met.[facility]01-05-2023 NotePatient: Driss Cope Procedure Summary Date: [...] Allowed opportunity for questions and acknowledgement of understanding.[facility]01-05-2023 Labor and delivery summary note* L&D Delivery Note - Irina Kramer DO - 11/30/2022 4:04 AM EST Images from the original note were not included. Vaginal Delivery Note Department of Obstetrics and Gynecology Patient: Driss Cope : 1995 Date of delivery: 11/30/2022 Pre-operative Diagnosis: Driss Mojica0 at 35w1d 1. <37 weeks 2. PreEwSF Post-operative Diagnosis: Live Born female Delivering Windows Desktop Support & Vessel Crew Member(s): Dr. Bowden; Dr. Kramer Information: Information for the patient's : Francie Cope [[id number]] Information for the patient's : Francie Cope [[id number]] Description: normal Meconium Noted: No Anesthesia: epidural [...] by the rest of the . The infant was placed on the maternal [...] surgery as described in the resident note. [facility] [id number] NoteEpidural Block Time Out: 11/29/2022 6:17 PM Patient location during procedure: OB Start time: 11/29/2022 6:18 PM End time: 11/29/2022 6:45 PM Reason for block: labor analgesia Staffing Performed: SIDE PANEL PADDER Resident/SIDE PANEL PADDER: Jimmie Kaur APRN - JASMYN Preanesthetic Checklist [...] saline Guidance: landmark technique Needle Needle type: Casagemming Needle gauge: 17 G Needle length: 9 cm Needle insertion depth: 5 cm Catheter type: multi-orifice Catheter size: 19 G Catheter at skin depth: 10 cm Catheter securement method: surgical tape, liquid medical adhesive and clear occlusive dressing Test dose: negative Assessment Sensory level: T10 Block outcome: pain improved Number of attempts: 1 Procedure assessment: patient tolerated procedure well with no immediate complications[facility] Plan of care note* Care Plan - Clotilde Mg RN - 11/29/2022 7:45 AM EST The patient will continue to make cervical change. Clotilde Mg RN [facility] [id number] NotePatient: Driss Cope Procedure Information Date: 11/28/22 [...] products. patient is not NPO Additional Equipment [facility]01-03-2023 NoteLabor Progress Note Date: 11/28/2022 Time: 2:14 [...] and reassuring. CCM. Cx:/-3 FHT: Cat 1 Carpendale:q3-4 min A/P: 1. IOL-PreEwSF. FHT 130 baseline, with moderate variability, Accelerations present Yes, and rare late deceleration . Cervical exam unchanged. Cytotec x4 placed at this time. Patient intermittently feeling contractions. BP mild range. Cx: 1-/-3 FHP: defer FHT: Cat I Carpendale: a3-4min A/P: 1. IOL-PreEwSF: FHT Category I, [...] Cx: unchanged FHP: defer FHT: Cat I Carpendale: q4min A/P: 1. IOL-PreEwSF: FHT Category I, with moderate variability, accelerations present, and decelerations absent. Blood pressure mild. UOP adequate. Cytotec #6 placed at this time. Magnesium running for seizure prophylaxis. PRICNE BRADYDO 11/29/2022 1:42 AM Cat I for past 4 hours. Cytotec time is up. Although discussed with Dr Keita patient will eat breakfast at this time. Plan for SVE after. PRINCE BRADYDO 11/29/2022 6:17 AM Cx:1-2/60/-3 FHT: Cat I Carpendale:q4-5mins A/P: 1. IOL-PreEwSF: Cat I FHT with [...] per protocol. CCM. Cx:defer FHT: Cat I Carpendale:q4-6mins A/P: 1. IOL-PreEwSF: Cat I FHT with baseline 120, moderate variability, spontaneous accelerations, and no decelerations. BP normotensive to mild range since last note time. Pitocin @ 2 cc/hr, continue to titrate per protocol. Magnesium sulfate running for seizure prophylaxis, UOP 400 ml over past 4 hours. CCM. Cx:defer FHT: Cat I Carpendale:q4-5mins A/P: 1. IOL-PreEwSF: Cat I FHT with baseline 135, moderate variability, spontaneous accelerations, and no decelerations. BP normotensive to mild range since last note time. Pitocin @ 6 cc/hr, continue to titrate per protocol. Magnesium sulfate running for seizure prophylaxis, UOP 600 ml over past 4 hours. Will plan for AROM soon. CCM. Cx:defer FHT: Cat I Carpendale:irritability A/P: 1. IOL-PreEwSF: Pit @ 8 mu/min. Patient resting comfortably and only irritability tracing on toco. BP most recently mild range. On magnesium sulfate for seizure prophylaxis. UOP adequate. Continue magnesium and continue to titrate pitocin per protocol. Plan for AROM once patient rudi more regularly. Electronically signed by Cortney Velasquez DO 11/29/2022 4:21 PM Cx:/-3 FHT: Cat 1 Carpendale:Not tracing A/P: 1. IOL-PreEwSF. FHT 135 baseline, with moderate variability, Accelerations present Yes, and no decelerations seen . AROM at this time for moderate amount blood tinged fluid. Pitocin at 8cc/hr. Maternal BP mild range. On Magnesium for Seizure prophylaxis. Patient with adequate urinary output. CCM. Cx: defer FHP: defer FHT: Cat II Carpendale: not tracing well A/P: 1. IOL-PreEwSF: FHT Category II for brief period of lates vs early deceleration (more content not included)...[facility]01-03-2023 NoteObstetrical History and Physical CHIEF COMPLAINT: [...] 34w6d Is this patient being delivered between 59u9f-13p3d weeks with an acceptable medical indication (obstetric, maternal, and/or )? NA: Not Applicable: This patient is being delivered outside of the PC-01 range (12v0a-23f2c) for reasons indicated in the medical record. [...] VTE Prophylaxis: Not Indicated (more content not included)...[facility]01-03-2023 History and physical note* Cassie Constantino [...] 34w6d Is this patient being delivered between 29o1s-31l9c weeks with an acceptable medical indication (obstetric, maternal, and/or )? NA: Not Applicable: This patient is being delivered outside of the PC-01 range (13l5i-01i7k) for reasons indicated in the medical record. [...] Constantino MD 11/28/2022, 12:48 AM [facility] [id number] History and physical note* Cassie Constantino MD [...] 34w6d Is this patient being delivered between 46l4a-33d6i weeks with an acceptable medical indication (obstetric, maternal, and/or )? NA: Not Applicable: This patient is being delivered outside of the PC-01 range (92h9d-90z8q) for reasons indicated in the medical record. [...] MD 11/28/2022, 12:48 AM documented in this [facility]01-02-2023 Evaluation + Plan note Extracted from: Title:OB High Risk Antepartum Visit * Author:WINSOME PRESCOTT MD [place] Date:11/27/22 Impression and Plan Diagnosis 34 weeks 5 days. Preeclampsia. contractions. Maternal tachycardia.. Course: Worsening, New onset headache may be a signal of worsening symptoms of preeclampsia.. Orders I discussed this case with the maternal- medicine department at [facility], Dr. Thea Nieves, she accepted to transfer due to preeclampsia. Plan: Magnesium sulfate per protocol, betamethasone, transfer arrangements are in progress.. 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 She is provided with a note for work. Additional diagnosis: Constipation, UTI and [facility]08-19-2022 Hospital Discharge instructions Follow Up Care 07/14/2022 06:07:36 With:Cruz Meza Address:Unknown When:07/17/2022 07:24:48 With:CRUZ RODRÍGUEZ Address: [address] [place] [address]- Business (1) When:Within 3 Day(s) [facility]08-19-2022 Hospital Discharge instructions Follow Up Care 07/14/2022 04:40:16 With:Cruz Meza Address: [address] [place] [address]- Business (1) When:07/17/2022 Comments:Appointment has already been scheduledCall Dr if fever>100.5 F, heavy bleedingCall for any problems.Call for severe abdominal painCall physician for heavy vaginal bleedingCall physician if symptoms worsenPlease call if you need to rescheduleReturn for contractions closer, longer, harderReturn ifruptured membranes or vaginal bleeding [facility]05-31-2022 Evaluation + Plan note Diagnostic Tests Pending * Czcfy-0-Aswhlurifum 04/25/22 * NIGEL w/Reflex if POS 04/25/22 * Ceruloplasmin 04/25/22 * HCV Antibody RFX to Quant PCR 04/25/22 * HBV Core Ab 04/25/22 * Hepatitis B Surface Antibody 04/25/22 * Hepatitis B Surface Antigen 04/25/22 * Smooth Muscle Antibody Screen 04/25/22 [facility]05-24-2022 Evaluation note* Encounter Date Diagnosis Assessment Notes Treatment Notes Treatment Clinical Notes March, Elevated liver function tests (ICD-10 - R79.89) LABS INDICATED ABOVE [employer] Other Evaluation note* Diagnosis Pelvic pain in female- Primary Unspecified symptom associated with female genital organs documented [facility]* Diagnosis Chronic pelvic pain in female- Primary Unspecified symptom associated with female genital organs Constipation, unspecified constipation type High-tone pelvic floor dysfunction Other specified disorders of female genital organs Diastasis of rectus abdominis Dysmenorrhea Other specified dyspareunia documented in this encounter [facility]* Diagnosis Endometriosis- Primary Endometriosis, site unspecified Pelvic and perineal pain Unspecified symptom associated with female genital organs documented in this [facility]* Diagnosis Pelvic pain in female- Primary Unspecified symptom associated with female genital organs documented [facility]* Diagnosis Pelvic pain in female- Primary Unspecified symptom associated with female genital organs documented [facility] this [facility]* Diagnosis High-tone pelvic floor dysfunction- Primary Other specified disorders of female genital organs Chronic pelvic pain in female Unspecified symptom associated with female genital organs documented in this [facility]* Diagnosis Pelvic and perineal pain Unspecified symptom associated with female genital organs [facility] Diagnosis Menorrhagia with regular cycle Pelvic pain in female Unspecified symptom associated with female genital organs Uses control [facility] Diagnosis Preeclampsia, severe, third trimester- Primary Preeclampsia, severe, third trimester [facility] Diagnosis Pre-eclampsia, severe, delivered- Primary [facility] Diagnosis Dysmenorrhea, unspecified [facility] Diagnosis Well woman exam with routine gynecological exam Routine gynecological examination [facility]* Diagnosis Hypertension, unspecified type (CMS/HCC)- Primary Paroxysmal tachycardia, unspecified (CMS/HCC) Paroxysmal tachycardia, unspecified Chronic right shoulder pain Pain in joint, shoulder region Scapular dyskinesis Lack of coordination [facility] Diagnosis Pain in female genitalia on intercourse Dyspareunia Endometriosis Endometriosis, site unspecified [facility] noteNo assessment information [facility]Sam[facility] Work Phone: Evaluation note* Diagnosis Missed menses , unspecified gestational age Encounter for supervision of normal first in first trimester [facility]* Diagnosis Nonintractable episodic headache, unspecified headache type- Primary Second trimester ([facility]) state, incidental 13 weeks gestation of ([facility]) documented [facility]* Diagnosis Sinusitis, unspecified chronicity, unspecified location- Primary Second trimester ([facility]) state, incidental 17 weeks gestation of ([facility]) Screening, , for anatomic survey ([facility]) Encounter for anatomic survey documented [facility]* Diagnosis 20 weeks gestation of ([facility]) Second trimester ([facility]) state, incidental Diabetes mellitus screening Screening for diabetes mellitus [facility]* Diagnosis Wellness examination- Primary Hypertension, unspecified type Lipid screening Screening for lipoid disorders [facility]* Diagnosis Wellness examination- Primary Hypertension, unspecified type Lipid screening Screening for lipoid disorders 24 weeks gestation of ([facility]) Second trimester ([facility]) state, incidental Elevated glucose tolerance test Impaired glucose tolerance test [facility]* Diagnosis Gestational diabetes mellitus (GDM) in second trimester, gestational diabetes method of control unspecified [facility] Diagnosis Wellness examination- Primary Hypertension, unspecified type Lipid screening Screening for lipoid disorders 26 weeks gestation of ([facility]) Second trimester ([facility]) state, incidental induced hypertension, antepartum ([facility]) Transient hypertension of , antepartum Gestational diabetes mellitus (GDM) in second trimester, gestational diabetes method of control unspecified ([facility]) documented in this encounter [facility] Narrative - Reported* Type Description Date Medical History headache Surgical History appendectomy Surgical History shoulder surgery Surgical History endometriosis [facility] Smart Panel Other History of Present illness Narrative* 26 [...] engaged x 1 year * working at [employer] in [place] [address] Shippable Phone: Hospital course Narrative No data available for this section [facility] No data available for this section [facility]ructionsNot on filedocumented in this encounter [facility] filedocumented in this encounter [facility] No data available for this section [facility] HospitalReason for visit NarrativePT HERE AT REQUEST OF DR RODRÍGUEZ FOR EVALUATION AND TREATMENT OF ELVATED LIVER FUNCTION- ( DR. SAMUEL PT), LABS FROM DR RODRÍGUEZ REVIEWED BY DR [facility] Other Summary Purpose Family History Unknown Family [...] Bilateral ureterolysis Surgeon: Dr. Charlene Rodriguez Resident/Fellow/Other Vessel Crew Member: Glory Palacio Anesthesia: general I.V. 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 Reason for Referral Specialty Diagnoses / Procedures Referred By Michaela house Referred To Contact MR IMAGING Diagnoses Pelvic and perineal pain Procedures MRI FEMALE PELVIS WO/W IVCON MRI PELVIS W/O & W/CONTRAST MATERIAL Charlene Rodriguez, [address] [facility] [address] [place] [address] Mr Imaging Referral ID Status Reason Start Date Expiration Date Visits Requested Visits Authorized [id number] Authorized Auto-Generat ed Referral 05/17/2023 06/15/2024 1 1 Specialty Diagnoses / Procedures Referred By Michaela house Referred To Contact [facility] Diagnoses Constipation, unspecified constipation type High-tone pelvic floor dysfunction Diastasis of rectus abdominis Dysmenorrhea Other specified dyspareunia Chronic pelvic pain in female Procedures CONSULT TO PHYSICAL THERAPY PHYSICAL THERAPY EVALUATION HIGH COMPLEX 45 MINS Srinivasa Downs, BEHAVIORAL SCIENCES INSTRUCTOR.ALTERNATIVE ENERGY ENGINEER [address] [place] [address] [facility] [address] [place] [address] Referral ID Status Reason Start Date Expiration Date Visits Requested Visits Authorized [id number] Pending Review Auto-Generat ed Referral 05/01/2023 04/30/2024 1 1 Chief Complaint and Reason for Visit Chief Complaint Admit Date N94.10 N80.9 February 02, 2025 3:1 6pm Additional Source Comments INFORMATION SOURCE (unrecogn ized section and content) DATE CREATED AUTHOR 10/26/2020 [facility] DATE CREATED AUTHOR AUTHOR'S ORGANIZ ATION 11/06/2020 [facility] DATE CREATED AUTHOR AUTHOR'S ORGANIZ ATION 12/17/2020 [facility] DATE CREATED AUTHOR AUTHOR'S ORGANIZ ATION 04/21/2021 [facility] DATE CREATED AUTHOR AUTHOR'S ORGANIZ ATION 06/05/2021 [facility] DATE CREATED AUTHOR AUTHOR'S ORGANIZ ATION 10/02/2021 [facility] DATE CREATED AUTHOR AUTHOR'S ORGANIZ ATION 02/10/2022 [facility] DATE CREATED AUTHOR AUTHOR'S ORGANIZ ATION 12/05/2022 [facility] DATE CREATED AUTHOR AUTHOR'S ORGANIZ ATION 04/30/2024 [facility] DATE CREATED AUTHOR AUTHOR'S ORGANIZ ATION 02/09/2025 [facility] DATE CREATED AUTHOR AUTHOR'S ORGANIZ ATION 03/15/2025 [facility] DATE CREATED AUTHOR AUTHOR'S ORGANIZ ATION 08/03/2025 [facility] DATE CREATED AUTHOR AUTHOR'S ORGANIZ ATION 08/13/2025 [facility] DATE CREATED AUTHOR AUTHOR'S ORGANIZ ATION 08/14/2025 [facility] DATE CREATED AUTHOR AUTHOR'S ORGANIZ ATION 08/16/2025 [facility] DATE CREATED AUTHOR AUTHOR'S ORGANIZ ATION 08/20/2025 [facility] DATE CREATED AUTHOR AUTHOR'S ORGANIZ ATION 08/21/2025 [facility] Care Team (unrecognized sect ion and content) Manager Unix Relationship Specialty Start Date End Date Cruz Rodríguez MD [address] [place] [address] PCP - General Family Medicine 12/03/14 Manager Unix Relationship Specialty Start Date End Date Cruz Rodríguez MD [address] [place] [address] PCP - General Family Medicine 12/03/14 Manager Unix Relationship Specialty Start Date End Date Cruz Rodríguez MD [address] [place] [address] PCP - General Family Medicine 12/03/14 Manager Unix Relationship Specialty Start Date End Date Cruz Rodríguez MD [address] [place] [address] PCP - General Family Medicine 12/03/14 Manager Unix Relationship Specialty Start Date End Date Cruz Rodríguez MD [address] [place] [phone] PCP - General Family Medicine 12/03/14 Manager Unix Relationship Specialty Start Date End Date Cruz Rodríguez MD [address] [place] [address] PCP - General Family Medicine 12/03/14 Manager Unix Relationship Specialty Start Date End Date Cruz Rodríguez MD [address] [place] [address] PCP - General Family Medicine 12/03/14 Manager Unix Relationship Specialty Start Date End Date Cruz Rodríguez MD [address] [place] [address] PCP - General Family Medicine 12/03/14 Manager Unix Relationship Specialty Start Date End Date Cruz Rodríguez MD [address] [place] [address] PCP - General Family Medicine 12/03/14 Manager Unix Relationship Specialty Start Date End Date Cruz Rodríguez MD [address] [place] [address] PCP - General Family Medicine 12/03/14 Manager Unix Relationship Specialty Start Date End Date Cruz Rodríguez MD [address] [place] [address] PCP - [facility] 09/26/21 Cruz Rodríguez MD [address] [place] [address] PCP - General Family Medicine 04/10/23 Cruz Rodríguez MD [address] [place] [address] PCP - [facility] 02/24/23 Zenobia [place] NP [address] [place] [address] Nurse Practitioner Family Medicine 10/05/23 Trista Thao NP [address] [place] [address] Nurse Practitioner Pulmonary Disease 10/05/23 Manager Unix Relationship Specialty Start Date End Date Cruz Rodríguez MD [address] [place] [address] PCP - General Family Medicine 12/03/14 Manager Unix Relationship Specialty Start Date End Date Cruz Rodríguez MD [address] [place] [address] PCP - General Family Medicine 12/03/14 Manager Unix Relationship Specialty Start Date End Date Cruz Rodríguez MD [address] [place] [address] PCP - [facility] 09/26/21 Cruz Rodríguez MD [address] [place] [address] PCP - [facility] 02/24/23 Nay Beltran DO [address] [place] [address] PCP - General Family Medicine 02/14/24 Manager Unix Relationship Specialty Start Date End Date Cruz Rodríguez MD [address] [place] [id number] PCP - [facility] 09/26/21 Cruz Rodríguez MD [address] [place] [address] PCP - [facility] 02/24/23 Nay Beltran DO [address] [place] [address] PCP - General Family Medicine 02/14/24 Manager Unix Relationship Specialty Start Date End Date Cruz Rodríguez MD [address] [place] [address] PCP - [facility] 09/26/21 Cruz Rodríguez MD [address] [place] [address] PCP - [facility] 02/24/23 Nay Beltran DO [address] [place] [address] PCP - General Family Medicine 02/14/24 Manager Unix Relationship Specialty Start Date End Date Cruz Rodríguez MD [address] [place] [address] PCP - [facility] 09/26/21 Cruz Rodríguez MD [address] [place] [address] PCP - [facility] 02/24/23 Nay Beltran DO [address] [place] [address] PCP - General Family Medicine 02/14/24 Manager Unix Relationship Specialty Start Date End Date Cruz Rodríguez MD [address] [place] [address] PCP - [facility] 09/26/21 Cruz Rodríguez MD [address] [place] [address] PCP - [facility] 02/24/23 Nay Beltran DO [address] [place] [address] PCP - General Family Medicine 02/14/24 Manager Unix Relationship Specialty Start Date End Date Cruz Rodríguez MD [address] [place] [address] PCP - [facility] 09/26/21 Nay Beltran DO [address] [place] [address] PCP - General Family Medicine 02/14/24 Manager Unix Relationship Specialty Start Date End Date Nay Beltran DO [address] [place] [address] PCP - General Family Medicine 02/14/24 Manager Unix Relationship Specialty Start Date End Date Nay Beltran DO [address] [place] [address] PCP - General Family Medicine 02/14/24 Team Status: Active Member Role Status Dates Cruz Rodríguez MD Primary Care Provider Active Team Status: Inactive Member Role Status Dates Cruz Rodríguez MD Primary Care Provider Active S tart: February 02, 2025 End: February 02, 2025 Nathan Pop DO Attending Provider Active Start : February 02, 2025 End: February 02, 2025 Manager Unix Relationship Specialty Start Date End Date Nay Beltran DO [address] [place] [address] PCP - General Family Medicine 02/14/24 Nay Beltran DO [address] [place] [address] PCP - [facility] 07/27/24 11/25/99 Manager Unix Relationship Specialty Start Date End Date Nay Beltran DO [address] [place] [address] PCP - General Family Medicine 02/14/24 Nay Beltran DO [address] [place] [address] PCP - [facility] 07/27/24 11/25/99 Manager Unix Relationship Specialty Start Date End Date Nay Beltran DO [address] [place] [address] PCP - General Family Medicine 02/14/24 Nay Beltran, DO [address] [place] [address] PCP - [facility] 07/27/24 11/25/99 Manager Unix Relationship Specialty Start Date End Date Nay Beltran DO [address] [place] [address] PCP - General Family Medicine 02/14/24 Nay Beltran, DO [address] [place] [address] PCP - [facility] 07/27/24 11/25/99 Manager Unix Relationship Specialty Start Date End Date Nay Beltran DO [address] [place] [address] PCP - General Family Medicine 02/14/24 Nay Beltran, DO [address] [place] [address] PCP - [facility] 07/27/24 11/25/99 Manager Unix Relationship Specialty Start Date End Date Nay Beltran DO [address] [place] [address] PCP - General Family Medicine 02/14/24 Nay Beltran, [address] [place] [address] PCP - [facility] 07/27/24 11/25/99 Manager Unix Relationship Specialty Start Date End Date Nay Beltran DO [address] [place] [address] PCP - General Family Medicine 02/14/24 Nay Beltran, DO [address] [place] [address] PCP - [facility] 07/27/24 11/25/99 Manager Unix Relationship Specialty Start Date End Date Nay Beltran DO [address] [place] [address] PCP - General Family Medicine 02/14/24 Nay Beltran DO [address] [place] [address] PCP - [facility] 07/27/24 11/25/99 Manager Unix Relationship Specialty Start Date End Date Nay Beltran DO [address] [place] [address] PCP - General Family Medicine 02/14/24 Nay Beltran, [address] [place] [address] PCP - [facility] 07/27/24 11/25/99 Manager Unix Relationship Specialty Start Date End Date Nay Beltran DO [address] [place] [address] PCP - General Family Medicine 02/14/24 Nay Beltran DO [address] [place] [address] PCP - [facility] 07/27/24 11/25/99 Manager Unix Relationship Specialty Start Date End Date Nay Beltran DO [address] [place] [address] PCP - General Family Medicine 02/14/24 Nay Beltran DO [address] [place] [address] PCP - [facility] 07/27/24 11/25/99 Manager Unix Relationship Specialty Start Date End Date Cruz Rodríguez MD [address] [place] [address] PCP - General Family Medicine 12/02/18 Manager Unix Relationship Specialty Start Date End Date Cruz Rodríguez MD [address] [place] [address] PCP - General Family Medicine 12/02/18 Manager Unix Relationship Specialty Start Date End Date Nay Beltran DO [address] [place] [address] PCP - General Family Medicine 02/14/24 Nay Beltran DO [address] [place] [address] PCP - [facility] 07/27/24 11/25/99 Manager Unix Relationship Specialty Start Date End Date Nay Beltran DO [address] [place] [address] PCP - General Family Medicine 02/14/24 Nay Beltran, [address] [place] [address] PCP - [facility] 07/27/24 11/25/99 Manager Unix Relationship Specialty Start Date End Date Nay Beltran DO [address] [place] [address] PCP - General Family Medicine 02/14/24 Nay Beltran, DO [address] [place] [address] PCP - [facility] 07/27/24 11/25/99 Manager Unix Relationship Specialty Start Date End Date Nay Beltran DO [address] [place] [address] PCP - General Family Medicine 02/14/24 Nay Beltran DO [address] [place] [address] PCP - [facility] 07/27/24 11/25/99 Source Comments (unrecognize d section and content) In the event this informatio n is protected by the Federal Confidentiality of Alcohol and Drug Abuse Patient Records regulations: The Federal rules restrict any use of the information to criminally investigate or prosecute any alcohol or drug abuse patient.[facility] the event this information is protected by the Federal Confidentiality of Alcohol and Drug Abuse Patient Records regulations: The Federal rules restrict any use of the information to criminally investigate or prosecute any alcohol or drug abuse patient.[facility] the event this information is protected by the Federal Confidentiality of Alcohol and Drug Abuse Patient Records regulations: The Federal rules restrict any use of the information to criminally investigate or prosecute any alcohol or drug abuse patient.[facility] the event this information is protected by the Federal Confidentiality of Alcohol and Drug Abuse Patient Records regulations: The Federal rules restrict any use of the information to criminally investigate or prosecute any alcohol or drug abuse patient.[facility] the event this information is protected by the Federal Confidentiality of Alcohol and Drug Abuse Patient Records regulations: The Federal rules restrict any use of the information to criminally investigate or prosecute any alcohol or drug abuse patient.[facility] the event this information is protected by the Federal Confidentiality of Alcohol and Drug Abuse Patient Records regulations: The Federal rules restrict any use of the information to criminally investigate or prosecute any alcohol or drug abuse patient.[facility] the event this information is protected by the Federal Confidentiality of Alcohol and Drug Abuse Patient Records regulations: The Federal rules restrict any use of the information to criminally investigate or prosecute any alcohol or drug abuse patient.[facility] the event this information is protected by the Federal Confidentiality of Alcohol and Drug Abuse Patient Records regulations: The Federal rules restrict any use of the information to criminally investigate or prosecute any alcohol or drug abuse patient.[facility] the event this information is protected by the Federal Confidentiality of Alcohol and Drug Abuse Patient Records regulations: The Federal rules restrict any use of the information to criminally investigate or prosecute any alcohol or drug abuse patient.[facility] the event this information is protected by the Federal Confidentiality of Alcohol and Drug Abuse Patient Records regulations: The Federal rules restrict any use of the information to criminally investigate or prosecute any alcohol or drug abuse patient.[facility] the event this information is protected by the Federal Confidentiality of Alcohol and Drug Abuse Patient Records regulations: The Federal rules restrict any use of the information to criminally investigate or prosecute any alcohol or drug abuse patient.[facility] the event this information is protected by the Federal Confidentiality of Alcohol and Drug Abuse Patient Records regulations: The Federal rules restrict any use of the information to criminally investigate or prosecute any alcohol or drug abuse patient.[facility] the event this information is protected by the Federal Confidentiality of Alcohol and Drug Abuse Patient Records regulations: The Federal rules restrict any use of the information to criminally investigate or prosecute any alcohol or drug abuse patient.[facility] Hospital[facility] the event this information is protected by the [facility] Confidentiality of Alcohol and Drug Abuse Patient Records regulations: The Federal rules restrict any use of the information to criminally investigate or prosecute any alcohol or drug abuse patient.[facility] Hospital[facility] the event this information is protected by the Federal Confidentiality of Alcohol and Drug Abuse Patient Records regulations: The Federal rules restrict any use of the information to criminally investigate or prosecute any alcohol or drug abuse patient.[facility] Reason for Visit (unrecogniz ed section and content) Reason Comments Menstrual Problem Reason Comments Vaginal Bleeding Reason Comments Endometriosis Reason Comments Insurance Authorization [place] Reason Comments Pelvic Pain Specialty Diagnoses / Procedures Referred By Michaela house Referred To Contact [facility] / GYNECOLOGY Diagnoses Painful menstrual periods Painful Periods Procedures OFFICE/OUTPATIENT ESTABLISHED SF MDM 10-19 MIN EST WHI PATIENT Srinivasa Downs, BEHAVIORAL SCIENCES INSTRUCTOR.ALTERNATIVE ENERGY ENGINEER [address] [place] [address] Srinivasa Downs, BEHAVIORAL SCIENCES INSTRUCTOR.ALTERNATIVE ENERGY ENGINEER [address] [place] [address] Referral ID Status Reason Start Date Expiration Date V isits Requested Visits Authorized [id number] Authorized 08/20/2023 11/25/2023 1 99 Reason Comments Radiology MRI Specialty Diagnoses / Procedures Referred By Contac t Referred To Contact MR IMAGING Diagnoses Pelvic and perineal pain Procedures MRI FEMALE PELVIS WO/W IVCON MRI PELVIS W/O & W/CONTRAST MATERIAL Charlene Rodriguez, DO [address] [facility] [address] [place] [address] [place] [id number] Referral ID Status Reason Start Date Expiration Date V isits Requested Visits Authorized [id number] Closed Auto-Generate d Referral 05/17/2023 06/15/2024 1 1 Reason Onset Date Comments Refill Request 01/02/2024 Reason Comments Menorrhagia Cramping with bleedi ng Reason Comments Surgery Cancelled Specialty Diagnoses / Procedures Referred By Contac t Referred To Contact Diagnoses Preeclampsia, severe, third trimester Procedures O14.13 - Preeclampsia, severe, third trimester Ritu Ryder, [address] [place] [address] [facility] [address] [place] [address] Referral ID Status Reason Start Date Expiration Date Visits Re quested Visits Authorized [id number] 1 1 Reason Comments Blood Pressure Check Reason Comments Dysmenorrhea Reason Comments Well Women Visit Reason Comments Shoulder Pain Reason Comments Painful Pritchett Reason Comments Amenorrhea Reason Comments Routine Visit Reason Comments Gestational Diabetes Specialty Diagnoses / Procedures Referred By Contac t Referred To Contact Maternal and Medicine Diagnoses Gestational diabetes mellitus (GDM) in second trimester, gestational diabetes method of control unspecified Nathan Pop R, DO [address] [facility] [place] [address] [place] [address] Phone: tel: fax: [facility] [address] [place] [address] Phone: tel: fax: Referral ID Status Reason Start Date Expiration Date Visits Requested Visits Authorized [id number] Pending Review Specialty Services Required 08/20/2025 08/20/2026 1 1 Scheduled Active and Recently Administ ered Medications [...] Arcos RN) 0942 (Given - Provider: Anna Booth, DIALLO) Continuous Medication Order 11/30/2022 12/01/2022 12/02/2022 magnesium [...] every 2-3 minutes with cervical changes or [place] units (MVU) greater than 200 in a [...] Arcos RN)1931 (Given - Provider: Lani Fraga, RN) 0551 (Given - Provider: Lani Fraga, RN)1221 (Given - Provider: Alejandra Arcos RN)2327 (Given - Provider: Lida Mark RN) 0942 (Given - Provider: Anna Booth RN)1601 (Given - Provider: Anna Booth RN) Benzocaine-Benzethonium 20-0.2 % spray Topical, As needed, pain, , Starting on Constance 11/30/22 at 0608, , Apply to perineal area. Patient is capable and may self administer at bedside. diphenhydrAMINE (BENADryl) injection 25 mg(Linked Group 1) 25 mg, IntraVENous, Every 6 hours PRN, itching, Starting on Constance 11/30/22 at 1635 1654 (Given - Provider: Alejandra Arcos, DIALLO) diphenhydrAMINE (BENADryl) tablet/capsule 25 mg(Linked Group 1) 25 mg, Oral, Every 6 hours PRN, itching, Starting on Constance 11/30/22 at 1635 1654 (See Alternative - Provider: Alejandra Arcos, DIALLO) docusate sodium (Colace) capsule 100 mg 100 [...] Chelsi Carlson RN)1204 (Given - Provider: Alejandra Arcos, RN)1931 (Given - Provider: Lani Fraga, RN) 0551 (Given - Provider: Lani Fraga, RN)1221 (Given - Provider: Alejandra Arcos, RN)2327 (Given - Provider: Lida Mark RN) 0942 (Given - Provider: Anna Booth, RN)1601 (Given - Provider: Anna Booth, RN) lanolin (Lansinoh) cream Topical, As needed, [...] BE BASED ON THE PRIMARY CLINICAL RECORDS. [facility]. provides no warranty or guarantee of the accuracy or completeness of information in this document.
[2025-08-29 12:08] LABS: Total Protein Urine Random 22.6 mg/dL (<=11.9); Total Volume 24 Hour Urine 600 mL/24hr
[2025-08-29 13:23] LABS: Alanine Aminotransferase 37 U/L (14-59)
== END 2025-08-29 10:33 | disposition home or self-care (01) ==
LOC: LAB 10:32
PROVIDERS: Family Provider Family Medicine; PCP Family Medicine; Visit Provider Nurse Practitioner Family
DX: O13.9 Gestational [pregnancy-induced] hypertension without significant proteinuria, unspecified trimester (principal)
CPT/HCPCS: 36415; 84156; 84460

== ENCOUNTER 2025-09-03 16:56 | Outpatient (OUT) | payer OTHER, SELFPAY ==
--- OUTSIDE RECORDS SUMMARY | 2025-08-24 13:30 | XMS_ITS | Encounter Summary ---
Author Organization [employer] [facility] tem Address [facility]-[id number] [address] [place] [address] Care Team Providers Care Flame Channeler Name Role Phone Cruz Rodríguez MD Primary Care Provider [phone] Reason for Visit * Reason Comments Gestational Diabetes * Consultation (Routine) - Pending Review Specialty Diagnoses / Procedures Referred By Michaela house Referred To Contact Maternal and Medicine Diagnoses Gestational diabetes mellitus (GDM) in second trimester, gestational diabetes method of control unspecified Nathan Pop, DO [address] [place] [address] [place] [address] Phone: tel: fax: Maternal- Medicine at [facility] 2 [place] [address] Phone: tel: fax: Referral ID Status Reason Start Date Expiration Date Visits Requested Visits Authorized [id number] Pending Review Specialty Services Required 08/20/2025 08/20/2026 1 1 Encounter Details Date Type Department Care Team (Late st Contact Info) Description 08/24/2025 1:30 PM EDT Support Visit Maternal- Medicine at [facility] [address] [place] [address] Teena Sarmiento RN [address] [phone] Kerline Steiner, RAYNA [address], [address] [place] [address] Gestational diabetes mellitus (GDM) in second trimester, [...] 09/10/2025 9:45 AM EDT Appointment Maternal Medicine [place] [address] [address] 09/10/2025 11:00 AM EDT Telemedicine Maternal Medicine [place] [address] [address] Quynh Clements MD [address] [address] 10/05/2025 3:00 PM EST Office Visit Maternal- Medicine at [facility] [address] [place] [address] Kayleigh Rizzo, PA-C [address] [address] documented as of this encounter Visit Diagnoses Diagnosis Gestational diabetes mellitus (GDM) in second trimester, gestational diabetes method of control unspecified documented in this encounter Care Teams Flame Channeler Relationship Specialty Start Date End Date Cruz Rodríguez MD [address] [place] [address] PCP - General Family Medicine 12/02/18 documented as of this encounter
--- OUTSIDE RECORDS SUMMARY | 2025-08-27 15:20 | XMS_ITS | Encounter Summary ---
Author Organization [facility] Address [address] [place] [address] Care Team Providers Care Instrument Repair Technician Name Role Phone Eliceo Beltran DO Primary Care Provider [phone] CharlottegeovaniEliceo kauffman Unavailable [phone] Reason for Visit * Reason Comments Routine Visit Encounter Details Date Type Department Care Team ([facility] Contact Info) Description 08/27/2025 3:20 PM EDT Routine [facility] [address] [place] [address] Stehp Keane, DEVYN [address] [place] [address] 26 weeks gestation of ([facility]); Second trimester ([facility]); induced hypertension, antepartum ([facility]); Gestational diabetes mellitus (GDM) in second trimester, gestational diabetes method of control unspecified ([facility]) Social History Tobacco Use Types Packs/Day Years [...] or ex-partner? No 09/19/2023 Social Connection and Isolation Panel Answer Date Recorded In a typical week, how many times do you talk on the phone with family, friends, or neighbors? More than three times a week 12/29/2024 How often do you get togethe r with friends or relatives? Once a week 12/29/2024 How often do you attend [facility] or amish services? 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 Not on file Not [...] San infection Headache History of menstrual cramps ([facility]) Varicella zoster Visual impairment HISTORY PAST MEDICAL HISTORY SOCIAL HISTORY Past Medical History: Diagnosis Date Amenorrhea d/t oral contraceptive pills Endometriosis John San infection Headache History of menstrual cramps severe Hypertension ([facility]) x1 Varicella zoster unsure Visual impairment [...] History: Procedure Laterality Date APPENDECTOMY 05/2016 at [facility] DILATION AND CURETTAGE 12/2022 retained placenta DISTAL [...] nursing note reviewed. Exam conducted with a wheel fitter present. Vitals: Estimated body mass index is 29.23 kg/m?? as calculated from the following: Height as of 07/30/25: 5' 2 . Weight as of this encounter: 159 lb 12.8 oz. BP: (!) 158/92 Patient's last menstrual period was 02/21/2025. ASSESSMENT & PLAN ICD-10-CM 1. 26 weeks gestation of ([facility]) Z3A.26 POCT urinalysis dipstick manually resulted 2. Second trimester ([facility]) Z34.92 Return OB: Patient presents today for [...] labs and have her evaluated today at [facility]. I discussed with OB today [...] Care Team (Late st Contact Info) Description 09/15/2025 2:50 PM EDT Routine [facility] [address] [place] [phone] Zenobia Gutierrez PA [address] [place] [address] Scheduled Orders Name Type Priority Associated Diagnoses [...] stress test Imaging Routine induced hypertension, antepartum ([facility]) Gestational diabetes mellitus (GDM) in second trimester, gestational diabetes method of control unspecified ([facility]) Expected: 08/27/2025 (Approximate), Expires: 02/25/2026 documented as of this encounter Procedures Procedure Name Priority Date/Time Associated Diagnosis Comments POCT URINALYSIS DIPSTICK Routine 08/27/2025 3:53 PM EDT 26 weeks gestation of ([facility]) documented in this encounter Results * POCT [...] Visit Diagnoses Diagnosis 26 weeks gestation of ([facility]) Second trimester ([facility]) state, incidental induced hypertension, antepartum ([facility]) Transient hypertension of , antepartum Gestational diabetes mellitus (GDM) in second trimester, gestational diabetes method of control unspecified ([facility]) documented in this encounter Care Teams Instrument Repair Technician Relationship Specialty Start Date End Date Eliceo Beltran DO [address] [place] [address] PCP - General Family Medicine 02/14/24 Eliceo Beltran DO [address] [place] [id number] PCP - Medical [employer] [place] [employer] 07/27/24 11/25/99 documented as of this encounter
--- OUTSIDE RECORDS SUMMARY | 2025-09-03 15:50 | XMS_ITS | Encounter Summary ---
Author Organization [facility] Address [address] [place] [address] Care Team Providers Care Clinical Quality Assurance Specialist Name Role Phone Eliceo Beltran DO Primary Care Provider [phone] Eliceo Beltran Unavailable [phone] Reason for Visit * Reason Comments Routine Visit Encounter Details Date Type Department Care Team (Latest Contact Info) Description 09/03/2025 3:50 PM EDT Routine [facility] [address] [place] [address] Steph Keane, DEVYN [address] [place] [address] Hypertension affecting , antepartum ([facility]) (Primary Dx); 27 weeks gestation of ([facility]); Second trimester ([facility]) Social History Tobacco Use Types Packs/Day Years [...] any clubs o r organizations such as quaker groups, unions, fraternal or athletic groups, or [...] Recorded Patient Health Questionnaire-2 Score 0 07/30/2025 [facility] [place] of Occupat ional Health - Occupational Stress [...] any time in the past 12 m [facility], were you homeless or living in [...] 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 female who presents for Routine Visit Patient presents today for Return OB appointment. MEDICATIONS Current Outpatient Medications Medication Instructions Alcohol Swabs (Alcohol Prep Pad) 70 % pads 1 Pad, Topical, Daily, Use four times daily to check FSBS. Blood Glucose Monitoring Suppl (D-Rapid RMS Glucometer) w/Device kit 1 kit, Does not apply, Daily, Use four times daily to check FSBS. In the morning prior to breakfast & 1 hour after each meal for a total of 4times daily. cbsgnsuatu-lvuiyxc-aobjvedy (Fiorinal) 50-325-40 MG capsule 1 capsule, Oral, [...] San infection Headache History of menstrual cramps ([facility]) Varicella zoster Visual impairment HISTORY PAST [...] History: Procedure Laterality Date APPENDECTOMY 05/[address] [facility] DILATION AND CURETTAGE 12/2022 retained [...] nursing note reviewed. Exam conducted with a edi architect present. Vitals: Estimated body mass index is 29.41 kg/m?? as calculated from the following: Height as of 07/30/25: 5' 2 . Weight as of this encounter: 160 lb 12.8 oz. BP: 170/90 Patient's last menstrual period was 02/21/2025. ASSESSMENT & PLAN ICD-10-CM 1. 27 weeks gestation of ([facility]) Z3A.27 POCT urinalysis dipstick manually resulted 2. Second trimester ([facility]) Z34.92 Return OB: Patient presents [...] PM EDT Routine [facility] [address] [place] [address] Zenobia Gutierrez PA [address] [place], [place] [id number] documented as of this encounter Procedures Procedure Name Priority Date/Time Associated Diagnosis Comments POCT URINALYSIS DIPSTICK Routine 09/03/2025 4:26 PM EDT 27 weeks gestation of ([facility]) documented in this encounter Results * POCT urinalysis dipstick manually resulted (09/03/2025 4:26 PM EDT) Color, UA Yellow Clarity, UA Clear Glucose, UA Negative Negative - 1999(110) ++++ mg/dL Bilirubin, UA Negative Negative - 4(70) +++ mg/dL Ketones, UA Negative Negative - 160(16) ++++ mg/dL Spec Grav, UA 1.005 1 - 1.03 Blood, UA Negative Negative - 50 Teodoro/mcL pH, UA 6.5 5 - 9 Protein, UA Negative Negative - 1999(20) ++++ mg/dL Urobilinogen, UA 2.0 0.2 - 12 mg/dL Leukocytes, UA Negative Negative - 500+++ Robinson/mcL Nitrite, UA Negative Negative - Positive Urine 09/03/2025 4:26 PM EDT Steph Keane [employer] POINT OF CARE TEST ENTER/EDIT ORDERABLES Final Result documented in this encounter Visit Diagnoses Diagnosis Hypertension affecting , antepartum ([facility])- Primary 27 weeks gestation of ([facility]) Second trimester ([facility]) state, incidental documented in this encounter Care Teams Clinical Quality Assurance Specialist Relationship Specialty Start Date End Date Eliceo Betlran DO [address] [place] [address] PCP - General Family Medicine 02/14/24 Eliceo Beltran DO [address] [place] [address] PCP - Medical [place] [employer] 07/27/24 11/25/99 documented as of this encounter
--- OUTSIDE RECORDS SUMMARY | 2025-09-03 17:03 | XMS_ITS | CCD ---
Author Organization [facility] Care Team Providers Care Oracle Fusion Developer Name Role Phone Unavailable Unavailable POCOPAL QUINTEROS Referring Unavailable CRUZ RODRÍGUEZ Primary Care Unavailable OPAL LARA Referring Unavailable CRUZ RODRÍGUEZ Primary Care Unavailable CRUZ RODRÍGUEZ Primary Care Physician Domo Hodges Unavailable TONIA DIALLO Attending Unavailable RITU RYDER Admitting Unavailable RITU RYDER Attending Unavailable Cruz Rodríguez MD Primary Care Provider Cruz Rodríguez MD Unavailable Cruz Rodríguez MD Primary Care Provider Cruz Rodríguez MD Unavailable [phone] Kita SHEET COMBINING OPERATOR, Zenobia Unavailable Keesha SHEET COMBINING OPERATOR, Trista R Unavailable [phone] Cruz Rodríguez MD Primary Care Provider CHARLENE RODRIGUEZ Referring Unavailable RODRÍGUEZ, CRUZ SAHIL Primary Care Unavailable CHARLENE RODRIGUEZ Attending Unavailable RODRÍGUEZ, CRUZ SAHIL Referring Unavailable RODRÍGUEZ, CRUZ SAHIL Primary Care Unavailable CHARLEEN RODRIGUEZ Attending Unavailable RODRÍGUEZ, CRUZ SAHIL Primary [...] Admitting Unavailable Kaftan DO, Nay R Unavailable [phone] Yomaira BELTRAN Attending Unavailable KAFTAN, G KENNETH Admitting Unavailable KIESHA, Nathan R Attending Unavailable KIESHA, Nathan R Admitting Unavailable KIESHA, Nathan R Admitting Unavailable KIESHA, Nathan R Attending Unavailable KAFTDALY, G KENNETH Admitting Unavailable KAFTAN, Yomaira COOPER Attending Unavailable KAFTYomaira MARQUEZ Admitting Unavailable KAFTAN, Yomaira COOPER Attending Unavailable Cruz Rodríguez MD Primary Care Provider MARBELLA KEANE Attending Unavailable MARBELLA KEANE Admitting Unavailable KAFTYomaira MARQUEZ Attending Unavailable KAYomaira BUNDY Admitting Unavailable KIESHA, Nathan R Consulting Unavailable KIESHA, DO Nathan R Consulting Unavailable KIESHA, Nathan R Consulting Unavailable KIESHA, Nathan R Attending Unavailable KIESHA, Nathan R Admitting Unavailable ELSAANA LAURA DUMONT Attending Unavailable ELSA, ANA LAURA TYSON Admitting Unavailable KERLINE AUGUSTIN Attending Unavailable KIESHA, NATHAN R Referring Unavailable CRUZ RODRÍGUEZ Primary Care Unavailable KIMFTNAY MARQUEZ R Attending Unavailable KIESHA, NATHAN Attending Unavailable KIESHA, NATHAN Attending Unavailable KIESHA, NATHAN Attending Unavailable KIESHA, NATHAN Attending Unavailable KAFTANNAY Attending Unavailable KIESHA, NATHAN Attending Unavailable MARBELLA KEANE Attending Unavailable Allergies Allergy Classification Reported Allergen(s) Allergy Type Date of Onset Reaction(s) Facility (4 sources) No Known Medication Allergies; Translations: [No Known Medication Allergies] Propensity to adverse reactions (disorder) [facility] Repository Medications Current Medications Medication Drug [...] Discontinued ascorbic acid 500 mg oral tablet (4 sources) Vitamin C Start: 10-25-2018 take 2 tablets by mouth in the morning ASCORBIC ACID WITH ISAURO HIPS 500 MG tablet Take 2 tablets (1,000 mg total) by mouth in the morning. 0 10/25/2018 Active aspirin 325 mg / butalbital 50 mg / caffeine 40 mg oral capsule (4 sources) Platelet Aggregation Inhibitor, Barbiturate, Nonsteroidal Anti-inflammatory [...] Glucose Monitoring Suppl (D-Care Glucometer) w/Device kit (7 sources) Start: 08-20-2025 End: 08-20-2026 Blood Glucose Monitoring Suppl (D-Care Glucometer) w/Device kit Indications: Gestational diabetes mellitus (GDM), antepartum, gestational diabetes method of control unspecified ([facility]) , Elevated glucose tolerance test 1 kit [...] 2019 8:18am cholecalciferol 0.125 mg oral capsule (4 sources) Vitamin D Start: 10-25-2018 take 1 [...] spasm, # 30 tab(s), Refills(s) 0, Pharmacy: [facility] 858, 157, cm, 01/23/22 7:20:00 EST, Height/Length [...] capsule (7 sources) Start: 11-30-19 End: 12-31-19 23 take 1 capsule by mouth twice daily [...] Start: 02-09-2022 take 1 tablet by ghada twice daily Orilissa 200 MG Oral Tablet [...] 01/10/2024 04/09/2024 Active Ethinyl Estradiol / Norethindrone (6 sources) Estrogen Start: 12-01-2018 take 0.05 ug [...] TAB PO Daily August 04, 2019 12:00am [place]-Linyah 0.25 -35 MG-MCG Oral for 28 Not-Taking [...] q6hr, # 20 tab(s), Refills(s) 1, Pharmacy: [facility] 858, 161, cm, 03/10/21 11:21:00 EDT, Height/Length [...] 1 isopropyl alcohol 0.7 ml/ml medicated pad (7 sources) Start: 08-20-2025 Alcohol Swabs (Alcohol Prep Pad) 70 % pads Indications: Gestational diabetes mellitus (GDM), antepartum, gestational diabetes method of control unspecified ([facility]) , Elevated glucose tolerance test Apply 1 [...] link. labetalol hydrochloride 100 mg oral tablet (19 sources) beta-Adrenergic Negro Start: 07-30-2025 End: 07-30-2026 [...] Pull magnesium oxide 400 mg oral tablet (8 sources) Start: 05-01-2025 End: 05-31-2025 take 1 tablet by mouth once daily magnesium oxide (Mag-Ox) 400 MG tablet Indications: headache in first trimester ([facility]) Take 1 tablet (400 mg) by mouth Daily 30 tablet 3 05/01/2025 05/31/2025 Active meloxicam 15 mg oral tablet (14 sources) Nonsteroidal Anti-inflammatory Drug Start: 02-02-2021 End: [...] once daily. Take 2 tablets by mo ut once daily. PNV no.95-ferrous fumarate-FA () 28 mg iron- 800 mcg tablet (4 sources) take 1 tablet by mouth in [...] MG tablet Indications: , unspecified gestational age ([facility]) , Encounter for supervision of normal first in first trimester ([facility]) Take 1 tablet by mouth Daily [...] Active rizatriptan 5 mg disintegrating oral tablet (4 sources) Serotonin-1b and Serotonin-1d Receptor Agonist Start: 10-24-2018 rizatriptan FINE ARTS PACKER (MAXALT-FINE ARTS PACKER) 5 mg disintegrating tablet Dissolve 1 tablet [...] b12 1 mg extended release oral tablet (4 sources) Vitamin B12 Start: 10-25-2018 take 1 [...] Pre-Delivery cetirizine hydrochloride 10 mg oral tablet (10 sources) Histamine-1 Receptor Antagonist Start: 06-09-2025 End: [...] 04, 2019 8:19am take 1 capsule by [facility] once daily FLUoxetine (PROZAC) 10 mg capsule Take 10 mg by mouth once daily. 0 Active Comment on above: Take 10 mg by mouth once daily. fluticasone propionate 0.05 mg/actuat metered dose nasal spray (9 sources) Corticosteroid Start: 5 End: 6 take [...] days, # 9 tab(s), Refills(s) 0, [facility], 157, cm, 03/04/21 7:22:00 EDT, Height/Length [...] milk promethazine hydrochloride 12.5 mg oral tablet (12 sources) Phenothiazine Start: 05-25-2025 End: 07-15-2025 take [...] p per request of Phys. EHR Cmte Diabetes mellitus without complication (2 sources) Abnormal glucose tolerance test; Translations: [Other abnormal glucose] 08-12-2025 Episodic Diabetes or abnormal glucose tolerance complicating ; childbirth; or the puerperium (7 sources) Gestational diabetes mellitus; Translations: [Gestational diabetes [...] Onset: 03-29-2023 03-29-2023 Chronic Unclassified (1 source) Gestational Diabetes Onset: 08-24-2025 Urinary tract infections (20 sources) Recurrent urinary [...] Onset: 08-24-2023 Episodic Other female genital disorders (7 sources) Chronic pelvic pain of female; Translations: [...] Test Name Value Interpretation Reference Range Facility [facility] TOTAL PROTEIN 24 HOUR UR INEon 08-29-2025 Interpretation and review of laboratory results Abnormal [facility] Protein (U) [Mass/Vol] 22.6 mg/dL High NINF - 11.9 mg/dL [facility] TB TOTAL PROTEIN 24 HOUR URINE 135.6 NINF [facility] TOTAL VOLUME 24 HOUR URINE 600 mL/24hr [facility] ALL CBC WITH AUTO DIFFon BASOPHILS ABSOLUTE AUTO 0.1 [facility] Basophils/100 WBC (Bld) 0.5 % 0.2 - 2.0 % [facility] Eosinophils/100 WBC (Bld) 1.4 % 0.9 - 7.0 % [facility] Erythrocyte distribution width (RBC) [Ratio] 13 % 11.0 - 15.0 % [facility] Hematocrit (Bld) [Volume fraction] 34.4 % Low 36.0 - 48.0 % [facility] Hemoglobin (Bld) [Mass/Vol] 11.3 g/dL Low 12.0 - 16.0 g/dL [facility] IMMATURE GRANULOCYTES ABS AUTO 0.59 High [facility] Immature granulocytes/100 WBC (Bld) 4.4 % High 0.0 - 0.5 % [facility] Interpretation and review of laboratory results Abnormal [facility] LYMPHOCYTES ABSOLUTE AUTO 2.4 [facility] Lymphocytes/100 WBC (Bld) 17.8 % Low 20.5 - 60.0 % [facility] MCH (RBC) [Entitic mass] 29.4 pg 26.7 - 34.0 pg [facility] MCHC (RBC) [Mass/Vol] 32.8 g/dL 29.9 - 35.2 g/dL [facility] MCV (RBC) [Entitic vol] 89.4 fL 81.0 - 99.0 fL [facility] MONOCYTES ABSOLUTE AUTO 1.1 High [facility] Monocytes/100 WBC (Bld) 8.1 % 1.7 - 12.0 % [facility] NEUTROPHILS ABSOLUTE AUTO 9 High [facility] Neutrophils/100 WBC (Bld) 67.8 % 43.0 - 75.0 % [facility] Platelet mean volume (Bld) [Entitic vol] 9.6 fL 9.5 - 13.5 fL [facility] TBH EO # 0.2 [facility] TBH PLT 270 [facility] TB RBC 3.85 Low [facility] WBC 13.3 High [facility] URINE T PROTEIN CREAT RA TIOon 08-27-2025 CREATININE URINE RANDOM <13.00 Low 20.00 - 300.00 mg/dL [facility] Interpretation and review of laboratory results Abnormal [facility] TOTAL PROTEIN URINE RANDOM <6.0 NINF - 11.9 mg/dL [facility] US OB BPP W NON-STRESS on 08-27-2025 [place] [address] Ultrasound Report Signed Patient: DRISS GAMA MR#: [id number] : 1995 Acct:[id number] Age/Sex: 30 / F ADM Date: Loc: [facility] 250- Attending Dr: KUNAL HYATT M.D. Ordering Physician: Marbella Keane Date of Service: 08/27/25 Procedure(s): US OB BPP w non-stress Accession Number(s): [id number] cc: Marbella Keane; Yomaira BELTRAN [address] [address] Patient Name: DRISS GAMA MRN: [id number] date: 1995 Sex: F Assigned Patient Location: LAB Current Patient Location: LAB Accession/Order Number: [id number] Exam Date: 08/27/2025 17:37 Report Date: 08/27/2025 [...] Morillo M.D. 08/27/2025 6:02 PM Dictation Location: [employer] Electronically authenticated by: [id number] Y Date: 08/27/2025 18:02 Dictated By: Jp Morillo D.O. Signed By: 08/27/251804 DD/ 01 TD/TT: Hat Brim Curler: [facility] Radiology, Radiologi MD srinath - 08/27/2025 [place] [address] Ultrasound Report Signed Patient: DRISS GAMA MR#: [id number] : 1995 Acct:[id number] Age/Sex: 30 / F ADM Date: Loc: [facility] 250- Attending Dr: KUNAL HYATT M.D. Ordering Physician: Marbella Keane Date of Service: 08/27/25 Procedure(s): US OB BPP w non-stress Accession Number(s): [id number] cc: Marbella Keane; Yomaira BELTRAN The [place] [id number] Patient Name: DRISS GAMA MRN: [facility]:[id number] date: 1995 Sex: F Assigned Patient Location: LAB Current Patient Location: LAB Accession/Order Number: [id number] Exam Date: 08/27/2025 17:37 Report Date: 08/27/2025 18:02 At the request of: MARBELLA ELSA Procedure: US OB BPP w non-stress Ultrasound [...] Morillo M.D. 08/27/2025 6:02 PM Dictation Location: [employer] Electronically authenticated by: [id number] Y Date: 08/27/2025 18:02 Dictated By: Jp Morillo D.O. Signed By: 08/27/251804 DD/ 01 TD/TT: Hat Brim Curler: [facility] Radiology Study observation (narrative) [facility] US OB BPP W NON-STRESS Ordered By: Radiologist Radiology on 08-27-2025 [facility] Work Phone: Urinalysis macro (dipstick) panel (U)on 08-27-2025 Bilirubin, UA Negative Negative - 4(70) +++ mg/dL [facility] Blood, UA Negative Negative - 50 Teodoro/mcL [facility] Clarity, UA Clear [facility] Color, UA Yellow [facility] Glucose, UA Negative Negative - 2000(110) ++++ mg/dL [facility] Interpretation and review of laboratory results Normal [facility] Ketones, UA Negative Negative - 160(16) ++++ mg/dL [facility] Leukocytes, UA Negative Negative - 500+++ Robinson/mcL [facility] Nitrite, UA Negative Negative - Positive [facility] pH, UA 6 5 - 9 [facility] Protein, UA Negative Negative - 2000(20) ++++ mg/dL [facility] Spec Grav, UA 1.015 1 - 1.03 [facility] Urobilinogen, UA 2.0 0.2 - 12 mg/dL [facility] URINE CULTURE, ROUTINEon Bacteria identified Cx Nom (U) Urine Culture, Routine [facility] Bacteria identified Cx Nom (U) Mixed urogenital robert [facility] Bacteria identified Cx Nom (U) 25,000-50,000 colony forming units per mL [facility] Bacteria identified Cx Nom (U) [facility] Bacteria identified Cx Nom (U) [address] [place], [place] [id number] [facility] Bacteria identified Cx Nom (U) [employer] Curer: Cm Sandoval PhD, Phone: [phone] [facility] 2nd hr Glucose Tolerance 100 gm loadon 08-15-2025 Glucose Tolerance Test 2 Hour 169 [facility] Capillary Glucose POCon 07-28 Glucose [Mass/Vol] 88 mg/dL Normal 55-99 [facility] Comment on above: Performed By: #### 2 [id number] #### [facility] [address] [place] [address] Glu 1 Hron 08-15-2025 Glucose [Mass/Vol] 152 mg/dL Normal 55-180 [facility] Comment on above: Performed By: #### 2 [id number] #### [facility] [address] [place] [address] Glu 2 Hron 08-15-2025 Glucose [Mass/Vol] 169 mg/dL High 55-155 [facility] Comment on above: Performed By: #### 2 [id number] #### [facility] [address] [place] [address] Glu 3 Hron 08-15-2025 Glucose [Mass/Vol] 141 mg/dL High 55-140 [facility] Comment on above: Performed By: #### 2 [id number] #### [facility] [address] [place] [address] Glu Fastingon 08-15-2025 Glucose [Mass/Vol] 82 mg/dL Normal 55-99 [facility] Comment on above: Performed By: #### 2 [id number] #### [facility] [address] [place] [address] Glucose tolerance, 1 houron 08-15-2025 Glucose Tolerance Test 1 Hour 152 [employer] [facility] Glucose tolerance, 3 hourson 08-15-2025 Glucose Tolerance Test 3 Hour 141 [facility] Glucose, tolerance fastingon 08-15-2025 Glucose Tolerance Test Fasting 82 [facility] No Panel Informationon 08-15 [facility] CBC w/ Auto Diffon 5 Basophil Absolute 0.1 E9/L Normal 0.0-0.2 [facility] Comment on above: Performed By: #### 2 [id number] #### [facility] [address] [place] [address] Basophils/100 WBC (Bld) 0.6 % Normal 0.0-2.0 [facility] Comment on above: Performed By: #### 2 [id number] #### [facility] [address] [place] [address] Eos Absolute 0.1 E9/L Normal 0.0-0.5 [facility] Comment on above: Performed By: #### 2 763638 #### [facility] [address] [place] [address] Eosinophils/100 WBC (Bld) 1.0 % Normal 0.0-8.0 [facility] Comment on above: Performed By: #### 2 [id number] #### [facility] [address] [place] [address] Erythrocyte distribution width (RBC) [Ratio] 12.9 % Normal 10.9-14.2 [facility] Comment on above: Performed By: #### 2 [id number] #### [facility] [address] [place] [address] Hematocrit (Bld) [Volume fraction] 33.1 % Low 34.0-46.0 [facility] Comment on above: Performed By: #### 2 [id number] #### [facility] [address] [place] [address] Hemoglobin (Bld) [Mass/Vol] 11.4 g/dL Low 12.0-16.0 [facility] Comment on above: Performed By: #### 2 767960 #### [facility] [address] [place] [address] Lymph Absolute 2.0 E9/L Normal 1.0-4.0 [facility] Comment on above: Performed By: #### 2 374384 #### [facility] [address] [place] [address] Lymphocytes/100 WBC (Bld) 19.6 % Normal 14.0-50.0 [facility] Comment on above: Performed By: #### 2 917696 #### [facility] [address] [place] [address] MCH (RBC) [Entitic mass] 29.9 pg Normal 27.0-34.0 [facility] Comment on above: Performed By: #### 2 470028 #### [facility] [address] [place] [address] MCHC (RBC) [Mass/Vol] 34.4 g/dL Normal 31.4-36.0 [facility] Comment on above: Performed By: #### 2 263877 #### [facility] [address] [place] [address] MCV (RBC) [Entitic vol] 86.7 fL Normal 80.0-100.0 [facility] Comment on above: Performed By: #### 2 669270 #### [facility] [address] [place] [address] [place] Absolute 0.5 E9/L Normal 0.2-1.0 [facility] Comment on above: Performed By: #### 2 773205 #### [facility] [address] [place] [address] Monocytes/100 WBC (Bld) 4.6 % Normal 4.0-14.0 [facility] Comment on above: Performed By: #### 2 109739 #### [facility] [address] [place] [address] Neutro Absolute 7.5 E9/L Normal 2.0-7.5 [facility] Comment on above: Performed By: #### 2 455156 #### [facility] [address] [place] [address] Neutro Auto 74.2 % Normal 36.0-75.0 [facility] Comment on above: Performed By: #### 2 146388 #### [facility] [address] [place] [address] Platelet 294.0 E9/L Normal 150.0-500.0 [facility] Comment on above: Performed By: #### 2 [id number] #### [facility] [address] [place] [address] Platelet mean volume (Bld) [Entitic vol] 8.1 fL Normal 6.4-10.8 [facility] Comment on above: Performed By: #### 2 [id number] #### [facility] [address] [place] [address] RBC 3.8 E12/L Low 4.3-5.9 [facility] Comment on above: Performed By: #### 2 055885 #### [facility] [address] [place] [address] WBC 10.1 E9/L Normal 4.0-11.0 [facility] Comment on above: Performed By: #### 2 [id number] #### [facility] [address] [place] [address] Ferritinon 08-12-2025 Ferritin Lvl 7 ng/mL Low 11-307 [facility] Comment on above: Performed By: #### 2 818518 #### [facility] [address] [place] [address] Folateon 08-12-2025 Folate Lvl >22.3 Normal >=6.7 [facility] Comment on above: Performed By: #### 2 [id number] #### [facility] [address] [place] [address] Gest Scr Glu 1 Hron 08-12-20 25 Glucose [Mass/Vol] 155 mg/dL High 55-140 [facility] Comment on above: Performed By: #### 3 [id number] #### [facility] [address] [place] [address] Glucose 1h post 50g loadon 0 08-12-2025 Glucose, 1 hr PP 50GM dose 155 [employer] [facility] Ironon 08-12-2025 Iron 55 microgram/dL Normal 35-153 [facility] Comment on above: Performed By: #### 2 697149 #### [facility] [address] [place] [address] No Panel Informationon 08-12 [facility] TIBC Calculatedon 08-12-2025 TIBC 637 microgram/dL High 250-400 [facility] Comment on above: Performed By: #### 1 [id number] #### [facility] [address] [place] [address] Transferrin [Mass/Vol] 455 mg/dL High 200-370 [facility] Comment on above: Performed By: #### 1 [id number] #### [facility] [address] [place] [address] US OB LIMITED 1+ FETUSESon 0 08-12-2025 [...] UA Negative Negative - 4(70) +++ mg/dL [facility] Blood, UA Negative Negative - 50 Teodoro/mcL [facility] Clarity, UA Clear [facility] Color, UA Yellow [facility] Glucose, UA Negative Negative - 2000(110) ++++ mg/dL [facility] Interpretation and review of laboratory results Abnormal [facility] Ketones, UA Negative Negative - 160(16) ++++ mg/dL [facility] Leukocytes, UA Negative Negative - 500+++ Robinson/mcL [facility] Nitrite, UA Negative Negative - Positive [facility] pH, UA 6 5 - 9 [facility] Protein, UA Negative Negative - 2000(20) ++++ mg/dL [facility] Spec Grav, UA 1.01 1 - 1.03 [facility] Urobilinogen, UA 1.0 0.2 - 12 mg/dL [facility] Vit B12on 08-12-2025 Cobalamin (Vitamin B12) [Mass/Vol] 205 pg/mL Normal 50-1500 [facility] Comment on above: Performed By: #### 2 [id number] #### [facility] [address] [place] [address] CBC w/ Auto Diffon 5 Basophil Absolute 0.0 E9/L Normal 0.0-0.2 [facility] Comment on above: Performed By: #### 2 298542 #### [facility] [address] [place] [address] Basophils/100 WBC (Bld) 0.2 % Normal 0.0-2.0 [facility] Comment on above: Performed By: #### 2 783246 #### [facility] [address] [place] [address] Eos Absolute 0.1 E9/L Normal 0.0-0.5 [facility] Comment on above: Performed By: #### 2 [id number] #### [facility] [address] [place] [address] Eosinophils/100 WBC (Bld) 0.5 % Normal 0.0-8.0 [facility] Comment on above: Performed By: #### 2 667636 #### [facility] [address] [place] [address] Erythrocyte distribution width (RBC) [Ratio] 13.0 % Normal 10.9-14.2 [facility] Comment on above: Performed By: #### 2 675378 #### [facility] [address] [place] [address] Hematocrit (Bld) [Volume fraction] 31.9 % Low 34.0-46.0 [facility] Comment on above: Performed By: #### 2 341426 #### [facility] [address] [place] [address] Hemoglobin (Bld) [Mass/Vol] 11.1 g/dL Low 12.0-16.0 [facility] Comment on above: Performed By: #### 2 633649 #### [facility] [address] [place] [address] Lymph Absolute 2.1 E9/L Normal 1.0-4.0 [facility] Comment on above: Performed By: #### 2 456391 #### [facility] [address] [place] [address] Lymphocytes/100 WBC (Bld) 16.2 % Normal 14.0-50.0 [facility] Comment on above: Performed By: #### 2 307488 #### [facility] [address] [place] [address] MCH (RBC) [Entitic mass] 29.9 pg Normal 27.0-34.0 [facility] Comment on above: Performed By: #### 2 289947 #### [facility] [address] [place] [address] MCHC (RBC) [Mass/Vol] 34.8 g/dL Normal 31.4-36.0 [facility] Comment on above: Performed By: #### 2 901282 #### [facility] [address] [place] [address] MCV (RBC) [Entitic vol] 85.7 fL Normal 80.0-100.0 [facility] Comment on above: Performed By: #### 2 703230 #### [facility] [address] [place] [address] [place] Absolute 0.9 E9/L Normal 0.2-1.0 [facility] Comment on above: Performed By: #### 2 030357 #### [facility] [address] [place] [address] Monocytes/100 WBC (Bld) 7.0 % Normal 4.0-14.0 [facility] Comment on above: Performed By: #### 2 095125 #### [facility] [address] [place] [address] Neutro Absolute 9.7 E9/L High 2.0-7.5 [facility] Comment on above: Performed By: #### 2 [id number] #### [facility] [address] [place] [address] Neutro Auto 76.1 % High 36.0-75.0 [facility] Comment on above: Performed By: #### 2 812184 #### [facility] [address] [place] [address] Platelet 307.0 E9/L Normal 150.0-500.0 [facility] Comment on above: Performed By: #### 2 650014 #### [facility] [address] [place] [address] Platelet mean volume (Bld) [Entitic vol] 8.0 fL Normal 6.4-10.8 [facility] Comment on above: Performed By: #### 2 437024 #### [facility] [address] [place] [address] RBC 3.7 E12/L Low 4.3-5.9 [facility] Comment on above: Performed By: #### 2 961120 #### [facility] [address] [place] [address] WBC 12.8 E9/L High 4.0-11.0 [facility] [facility] Comment on above: Performed By: #### 2 [id number] #### [facility] [address] [place] [address] CMPon 08-01-2025 CO2 [Moles/Vol] 20 mmol/L Low 21-31 [facility] Comment on above: Performed By: #### 2 [id number] #### [facility] [address] [place] [address] Anion gap [Moles/Vol] 16 mmol/L Normal 6-16 [facility] Comment on above: Performed By: #### 2 [id number] #### [facility] [address] [place] [address] Albumin [Mass/Vol] 3.8 g/dL Normal 3.3-5.0 [facility] Comment on above: Performed By: #### 2 [id number] #### [facility] [address] [place] [address] Albumin/Globulin [Mass ratio] 1.3 {ratio} Normal 1.1-2.2 [facility] Comment on above: Performed By: #### 2 [id number] #### [facility] [address] [place] [address] Alk Phos 78 Int._Unit/L Normal 21-98 [facility] Comment on above: Performed By: #### 2 [id number] #### [facility] [address] [place] [address] ALT 21 Int._Unit/L Normal 6-46 [facility] Comment on above: Performed By: #### 2 [id number] #### [facility] [address] [place] [address] AST 17 Int._Unit/L Normal 5-43 [facility] Comment on above: Performed By: #### 2 [id number] #### [facility] [address] [place] [address] Bili Total 0.8 mg/dL Normal 0.0-1.1 [facility] Comment on above: Performed By: #### 2 [id number] #### [facility] [address] [place] [address] BUN/Creat Ratio 18 No Units Normal 10-20 [facility] Comment on above: Performed By: #### 2 [id number] #### [facility] [address] [place] [address] Calcium [Mass/Vol] 8.9 mg/dL Normal 8.9-11.1 [facility] Comment on above: Performed By: #### 2 [id number] #### [facility] [address] [place] [address] Chloride [Moles/Vol] 104 mmol/L Normal 101-111 [facility] Comment on above: Performed By: #### 2 [id number] #### [facility] [address] [place] [address] Creatinine [Mass/Vol] 0.6 mg/dL Normal 0.5-1.3 [facility] Comment on above: Performed By: #### 2 [id number] #### [facility] [address] [place] [address] Globulin (S) [Mass/Vol] 3.0 g/dL Normal 1.4-4.0 [facility] Comment on above: Performed By: #### 2 [id number] #### [facility] [address] [place] [address] Glucose [Mass/Vol] 92 mg/dL Normal 55-199 [facility] Comment on above: Performed By: #### 2 [id number] #### [facility] [address] [place] [address] Potassium [Moles/Vol] 3.7 mmol/L Normal 3.5-5.3 [facility] Comment on above: Performed By: #### 2 534653 #### [facility] [address] [place] [address] Protein [Mass/Vol] 6.8 g/dL Normal 6.0-7.8 [facility] Comment on above: Performed By: #### 2 [id number] #### [facility] [address] [place] [address] Sodium [Moles/Vol] 136 mmol/L Normal 135-145 [facility] Comment on above: Performed By: #### 2 [id number] #### [facility] [address] [place] [address] Urea nitrogen [Mass/Vol] 11 mg/dL Normal 5-21 [facility] Comment on above: Performed By: #### 2 284195 #### [facility] [address] [place] [address] Lipid Panelon 08-01-2025 Cholesterol [Mass/Vol] 239 mg/dL High 120-200 [facility] Comment on above: Performed By: #### 2 257642 #### [facility] [address] [place] [address] Cholesterol in HDL [Mass/Vol] 88 mg/dL Invalid Interpretation Code [facility] Comment on above: Result Comment: '>= 60 LOW RISK' '<= 40 HIGH RISK' Performed By: #### 2 775311 #### [facility] [address] [place] [address] Cholesterol in LDL [Mass/Vol] 144 mg/dL High <=129 [facility] Comment on above: Performed By: #### 2 040582 #### [facility] [address] [facility] [place] [address] Cholesterol in VLDL [Mass/Vol] 40 mg/dL Normal 7-40 [facility] Comment on above: Performed By: #### 2 062466 #### [facility] [address] [facility] [place] [address] Triglyceride [Mass/Vol] 202 mg/dL High <=149 [facility] Comment on above: Performed By: #### 2 980692 #### [facility] [address] [place] [address] eGFRon 08-01-2025 eGFR 123 mL/min/1.73 m2 Normal >=59 [facility] Comment on above: Performed By: #### 1 [id number] #### [facility] [address] [place] [address] AFP, SERUM, OPEN SPINA BIFID Aon 07-18-2025 AFP MOM 0.95 . [facility] AFP VALUE 59.2 ng/mL . [facility] COMMENT: Comment . [facility] Comment on above: Amy Ramos , Ph.D., [facility] Director References: Available Upon Request. Multiples Of Median Cutoffs For AFP Elevations Hsieh 2.5 Black 2.8 IDD 2.0 Twins 4.5 Abbreviation Definitions IDD - Insulin Dep Diabetes OSBR - Open Spina Bifida Risk For further inquiries contact [employer] at [phone]. This test was developed and its performance characteristics determined by [employer]. It has not been cleared or approved by the Food and Drug Administration. Performed at: [facility] [address] [place], [place] [id number] [employer] Curer: Dona Justin [facility], Phone: [phone] GEST. AGE ON COLLECTION DATE 20.6 . weeks [facility] GESTAT. AGE BASED ON LMP . [facility] Comment on above: Recalculations are n ot recommended when gestational dating by LMP and ultrasound are within 10 days. INSULIN DEP DIABETES No . [facility] INTERPRETATION Comment . [facility] Comment on above: Interpretation: Scre en Negative [...] Customer Services to discuss available options. The [employer] recommends amniocentesis be offered to women age 35 and older. [age] [facility] MULTIPLE GESTATION No . [facility] [place] [address] . [facility] RACE . [facility] RESULTS Report . [facility] TEST RESULTS: Negative . [facility] WEIGHT 146 . lbs [facility] N N LMP [id number] 2 17 N 1 Y 146 N N N N N White/ [facility] US OB 14+ WEEKS ANATOMY SCAN on [...] II, MD, PHD at 16-Jul-2025 08:07:07 AM [facility] Normal Not Available Comment on above: Order Comment: US OB ANATOMY SINGLE W US OB CERVICAL LENGTH Estimated Date of Delivery: 11/28/25 Gestational Age as of 06/22/2025: 17w2d Urinalysis macro (dipstick) panel (U)on 07-15-2025 Bilirubin, UA Negative Negative - 4(70) +++ mg/dL [facility] Healthcare Blood, UA Negative Negative - 50 Teodoro/mcL [facility] Clarity, UA Clear [facility] Color, UA Yellow [facility] Glucose, UA Negative Negative - 1999(110) ++++ mg/dL [facility] Interpretation and review of laboratory results Normal [facility] Ketones, UA Negative Negative - 160(16) ++++ mg/dL [facility] Leukocytes, UA Negative Negative - 500+++ Robinson/mcL [facility] Nitrite, UA Negative Negative - Positive [facility] pH, UA 6 5 - 9 [facility] Protein, UA Negative Negative - 2000(20) ++++ mg/dL [facility] Spec Grav, UA 1.01 1 - 1.03 [facility] Urobilinogen, UA 1.0 0.2 - 12 mg/dL [facility] RECURRENT VAGINITIS (HTRX)on 06-24-2025 ATOPOBIUM VAGINAE 0 [facility] ATOPOBIUM VAGINAE Not detected [facility] BVAB 2,3 (BACTERIAL VAGINOSIS ASSOCIATED BACTERIA 2, 3); MOBILUNCUS SPP 0 [facility] BVAB 2,3 (BACTERIAL VAGINOSIS ASSOCIATED BACTERIA 2, 3); MOBILUNCUS SPP Not detected [facility] RADHA ALBICANS, PARAPSILOSIS, TROPICALIS 0 [facility] RADHA ALBICANS, PARAPSILOSIS, TROPICALIS Not detected [facility] RADHA GLABRATA 0 [facility] RADHA GLABRATA Not detected [facility] RADHA KRUSEI 0 [facility] RADHA KRUSEI Not detected [facility] CHLAMYDIA TRACHOMATIS 0 [facility] CHLAMYDIA TRACHOMATIS Not detected N [facility] GARDNERELLA VAGINALIS 17.967 Abnormal [facility] GARDNERELLA VAGINALIS Detected Abnormal [facility] Interpretation and review of laboratory results Abnormal [facility] MEGASPHAERA (TYPES 1, 2) 0 [facility] MEGASPHAERA (TYPES 1, 2) Not detected [facility] MYCOPLASMA GENITALIUM 0 [facility] MYCOPLASMA GENITALIUM Not detected N [facility] NEISSERIA GONORRHOEAE 0 [facility] NEISSERIA GONORRHOEAE Not detected N [facility] TRICHOMONAS VAGINALIS 0 [facility] TRICHOMONAS VAGINALIS Not detected N [facility] Urinalysis macro (dipstick) panel (U)on 06-22-2025 Bilirubin, UA Negative Negative - 4(70) +++ mg/dL [facility] Blood, UA Negative Negative - 50 Teodoro/mcL [facility] Clarity, UA Clear [facility] Color, UA Yellow [facility] Glucose, UA Negative Negative - 1999(110) ++++ mg/dL [facility] Interpretation and review of laboratory results Normal [facility] Ketones, UA Negative Negative - 160(16) ++++ mg/dL [facility] Leukocytes, UA Negative Negative - 500+++ Robinson/mcL [facility] Nitrite, UA Negative Negative - Positive [facility] pH, UA 6 5 - 9 [facility] Protein, UA Negative Negative - 1999(20) ++++ mg/dL [facility] Spec Grav, UA 1.005 1 - 1.03 [facility] Urobilinogen, UA 1.0 0.2 - 12 mg/dL [facility] Urinalysis macro (dipstick) panel (U)on 05-25-2025 Bilirubin, UA Negative Negative - 4(70) +++ mg/dL [facility] Blood, UA Negative Negative - 50 Teodoro/mcL [facility] Clarity, UA Clear [facility] Color, UA Yellow [facility] Glucose, UA Negative Negative - 1999(110) ++++ mg/dL [facility] Interpretation and review of laboratory results Normal [facility] Ketones, UA Negative Negative - 160(16) ++++ mg/dL [facility] Leukocytes, UA Positive Negative - 500+++ Robinson/mcL [facility] Comment on above: small Nitrite, UA Negative Negative - Positive [facility] pH, UA 6.5 5 - 9 [facility] Protein, UA Negative Negative - 1999(20) ++++ mg/dL [facility] Spec Grav, UA 1.01 1 - 1.03 [facility] Urobilinogen, UA 0.2 0.2 - 12 mg/dL [facility] BOX TESTon 05-04-2025 BOX TEST SENT OUT [facility] BOX1 [facility] BOX2 05/04/25 [facility] BOX [facility] CBC without diffon Hematocrit (Bld) [Volume fraction] 39.8 % [facility] Hemoglobin (Bld) [Mass/Vol] 13.2 g/dL [facility] Platelets (Bld) [#/Vol] 390 10*3/uL [facility] Rbc Mcv (Fl) By Automated Count 84.7 [facility] Drug Screen, Urineon 025 Amphetamine/Methamphet amine Negative [facility] Barbiturates Negative [facility] Benzodiazepines Negative [facility] Cocaine Metabolite Negative [facility] Methadone Negative [facility] Opiates Negative [facility] Oxycodone Negative [facility] Phencyclidine Negative [facility] Thc Marijuana, Urine Negative [facility] HBV surface Ag IA Qlon 05-04 Hepatitis B Surface Antigen Negative [facility] HCV Ab IA Qlon 05-04-2025 HCV Ab Ql (S) Non-Reactive [facility] HIV 1+2 Ab+HIV1 p24 Ag IA Ql on 05-04-2025 HIV 1&2 AB/AG Non-Reactive [facility] Hemoglobin A1con 05-04-2025 HbA1c (Bld) [Mass fraction] 5.3 % 4.0 - 6.0 % [facility] No Panel Informationon 05-04 [facility] Rubella IGG immune statusOrd ered By: Angeline Velasquez on 05-04-2025 Rubella immune IgG [facility] Type and screenon 05-04-2025 Abo/Rh(D) Positive [facility] HCG ( test) Ql (U)o n 05-01-2025 Interpretation and review of laboratory results Abnormal [facility] Preg Test, Ur Positive Negative [facility] US OB TRANSVAGINALon [address] [place] [address] Ultrasound Report Signed Patient: DRISS COPE MR#: [id number] : 1995 Acct:[id number] Age/Sex: 30 / F ADM Date: 05/01/25 Loc: US Attending Dr: Nathan Pop D.O. Ordering Physician: Nathan Pop D.O. Date of Service: 05/01/25 Procedure(s): US OB transvaginal Accession Number(s): [id number] cc: Nathan Pop D.O.; Physician,Non-Staff M.DKaren [place] [id number] Patient Name: DRISS COPE MRN: [id number] date: 1995 Sex: F Assigned Patient Location: US Current Patient Location: US Accession/Order Number: [id number] Exam Date: 05/01/2025 08:57 Report Date: 05/01/2025 [...] Faria M.D. 05/01/2025 9:01 AM Dictation Location: [place] [address] Electronically authenticated by: [id number] Y Date: 05/01/2025 09:01 Dictated By: Will Faria M.D. Signed By: 05/01/25903 DD/ 0 TD/TT: Hat Brim Curler: [facility] Radiology, Radiologi MD srinath - 05/01/2025 [place] [address] Ultrasound Report Signed Patient: DRISS COPE MR#: [id number] : 1995 Acct:[id number] Age/Sex: 30 / F ADM Date: 05/01/25 Loc: US Attending Dr: Nathan Pop D.O. Ordering Physician: Nathan Pop D.O. Date of Service: 05/01/25 Procedure(s): US OB transvaginal Accession Number(s): [id number] cc: Nathan Pop D.O.; Physician,Non-Staff [place] [id number] Patient Name: DRISS COPE MRN: [id number] date: 1995 Sex: F Assigned Patient Location: US Current Patient Location: US Accession/Order Number: [id number] Exam Date: 05/01/2025 08:57 Report Date: 05/01/2025 [...] Faria M.D. 05/01/2025 9:01 AM Dictation Location: [place] [address] Electronically authenticated by: [id number] Y Date: 05/01/2025 09:01 Dictated By: Will Faria M.D. Signed By: 05/01/2504 DD/ 0 TD/TT: Hat Brim Curler: [facility] Radiology Study observation (narrative) [facility] OB TRANSVAGINALOrdered By : Radiologist Radiology on 05-01-2025 [facility] Work Phone: Urinalysis macro (dipstick) panel (U)on 05-01-2025 Bilirubin, UA Negative Negative - 4(70) +++ mg/dL [facility] Blood, UA Negative Negative - 50 Teodoro/mcL [facility] Clarity, UA Clear [facility] Color, UA Yellow [facility] Glucose, UA Negative Negative - 1999(110) ++++ mg/dL [facility] Interpretation and review of laboratory results Normal [facility] Ketones, UA Negative Negative - 160(16) ++++ mg/dL [facility] Leukocytes, UA Negative Negative - 500+++ Robinson/mcL [facility] Nitrite, UA Negative Negative - Positive [facility] pH, UA 5.5 5 - 9 [facility] Protein, UA Negative Negative - 1999(20) ++++ mg/dL [facility] Spec Grav, UA 1.02 1 - 1.03 [facility] Urobilinogen, UA 1.0 0.2 - 12 mg/dL [facility] CHEMISTRYOrdered By: SYSTEM SYSTEM on 03-13-2025 Progesterone [...] Progesterone Lvl 31.35 ng/mL Invalid Interpretation Code [facility] Comment on above: Result Comment: 'F N ON FOLLICULAR = 0.10 - 0.60' 'LUTEAL = 3.00 - 17.5' 'MIDLUTEAL = 3.30 - 18.6' 'POST-MENOPAUSE = 0.10 - 0.40' '-FIRST TRIMESTER = 8.30 - 66.5' 'SECOND TRIMESTER = 18.9 - 66.1' 'THIRD TRIMESTER = 35.8 - 312.4' 'MALES = 0.14 - 2.06' Performed By: #### 2 [id number] #### [facility] [address] [place] [address] Progesteroneon 02-02-2025 Progesterone 0.2 ng/mL Normal . [facility] Comment on above: Result Comment: Foll icular phase 0.1 - 0.9 Luteal phase 1.8 - 23.9 Ovulation phase 0.1 - 12.0 First trimester 11.0 - 44.3 Second trimester 25.4 - 83.3 Third trimester 58.7 - 214.0 Postmenopausal 0.0 - 0.1 Performed at: - [facility] [id number] [employer] Curer: Cm Sandoval PhD, Phone: [phone] PERFORMED BY: [place] [address] [place] [address] PATHOLOGIST ONYX CHIP TERRAZZO WORKER ARNULFO THOMAS M.D. Performed By: #### P [...] Foy MD Transcribed by: ELOISA Technologist: GIO Rivera [facility] US Pelvis Non-OB Completeon 01-22-2025 US [...] MD Transcribed by: ELOISA Technologist: GIO Arroyo [facility] IGP,APTIMA HPV,AGE GDLNon AGE GDLN ACOG TESTING Note . [facility] Comment on above: TESTS RESULT FLAG UN ITS REF RANGE LAB Clinician Provided Cytology Information Source.............Cervix;Endocervix No. of containers..01 ThinPrep Vial Age Algo ACOG Sarah... -24 12 FLAG LEGEND: L-Low Normal,H-High Normal,LL-Alert Low,HH-Alert High <-Panic Low,>-Panic High,A-Abnormal,AA-Critical Abnormal Performed at: 01 =G [facility] [place] [address] [place] [address] Loren Oneal MD, IGP, RFX APTIMA HPV ASCU Note . [facility] Comment on above: TESTS RESULT FLAG UN ITS REF RANGE LAB DIAGNOSIS: 02 NEGATIVE FOR INTRAEPITHELIAL LESION OR MALIGNANCY. Specimen adequacy: 02 Satisfactory for evaluation. Endocervical and/or squamous metaplastic cells (endocervical component) are present. Performed by: 02 Pippa Calzada, Finishing Operator ([facility]) . 02 Note: Note 02 The [...] <-Panic Low,>-Panic High,A-Abnormal,AA-Critical Abnormal Performed at: 02 WB [facility] [place] [address] [facility] [place] [address] Loren Oneal MD, Performed at: =G - [facility] [place] [address] [facility] [place] [id number] [employer] Curer: Loren Oneal MD, Phone: [phone] Performed at: - [facility] [place] [address] [place] [id number] [employer] Curer: Loren Onael MD, Phone: [phone] BRUSH-SPATULA CERVIX ENDOCERVIX [facility] 04-29-2024 [facility] Telephone (Q) DRISS COPE ([id number]) 1995 F Date Time Provider Department 04/29/24 CHARLENE RODRIGUEZ [facility] During your visit today, we recorded [...] Encounter Status:Closed by CHRISTA GARCES on 04/29/24 [facility] DRISS COPE ([id number]) 1995 F Date Time Provider Department 04/25/24 CHARLENE RODRIGUEZ [facility] During your visit today, we recorded the following information about you: Anna De Leon 04/25/2024 1:10 PM Signed Pt got in sooner for surgery with her local group fitness manager. Please cancel surgery and all pre and [...] Status:Closed by ANNA DE LEON on 04/25/24 [facility] Gladys 12-12-2023 [facility] Telephone (WHQ) DRISS COPE ([id number]) 1995 F Date Time Provider Department 12/12/23 CHARLENE RODRIGUEZ During your visit today, we [...] by CHRISTA GARCES on 12/12/23 [facility] CNOVon 12-10-2023 CNOV Office Visit ([facility]MG[facility] ) DRISS COPE ([id number]) 1995 F Date Time Provider Department 12/10/23 10:30 AM CHARLENE RODRIGUEZ During your visit today, we recorded the following information about you: Pulse Blood pressure Weight 98/minute 124/84 68.9 kg Charlene Rodriguez DO 12/10/2023 3:14 PM Signed [facility] SECTION FOR MINIMALLY INVASIVE GYNECOLOGIC SURGERY OUTPATIENT VISIT DATE 12/10/2023 OUTPATIENT VISIT TYPE Follow-up visit PRIMARY CARE PHYSICIAN: Cruz Rodríguez [address] [place] [address] REFERRING PHYSICIAN: Self CHIEF COMPLAINT: No chief [...] MRI: no evidence of Past Gynecologic History: Court Deputy History LMP: 07/08/2023 (Exact Date), Having periods Age at Menarche: 14 Age at First : 27 Age at Menopause: Court Deputy History Comments: Sexual Activity: Never; No partner [...] included)... Normal [facility] Cytology Cervical or vaginal smear or scraping banner 08-15-2023 [facility] 08-02-2023 [facility] Telephone ([facility]) DRISS COPE ([id number]) 1995 F Date Time Provider Department 08/02/23 CHARLENE RODRIGUEZ [facility] During your visit today, we recorded [...] completed via Cover MyMeds. Driss Cope (Morales: [id number]) - [id number] Orilissa 150MG tablets Status: Sent To Plan Created: August 02, 2023 Sent: August 02, 2023 DIALLO Coffey Ashley 08/03/2023 10:22 AM Signed Christa Suárez RN 08/09/2023 1:36 PM Signed Patient notified of approval via MyC message. Encounter closed. Christa Suárez RN Allergies As of Date: 08/02/2023 (No Known Allergies) Date Reviewed: 07/16/2023 Reviewed by: Zenobia Lyman, DIALLO - Fully Assessed Reason for Visit: Insurance [...] by LESLEY LYNN on 08/02/23 [facility] CNOVon 07-16-2023 CNOV Office Visit ([facility] ) DRISS COPE ([id number]) 1995 F Date Time Provider Department 07/16/23 11:30 AM CHARLENE RODRIGUEZ During your visit today, we recorded the following information about you: Blood pressure Last Period 136/90 07/08/23 Charlene Rodriguez DO 07/16/2023 12:41 PM Signed [facility] SECTION FOR MINIMALLY INVASIVE GYNECOLOGIC SURGERY OUTPATIENT VISIT DATE 07/16/2023 OUTPATIENT VISIT TYPE Follow-up visit PRIMARY CARE PHYSICIAN: Cruz Rodríguez [address] [place] [address] REFERRING PHYSICIAN: Cruz Rodríguez CHIEF COMPLAINT: No [...] additional bowel lesions identified Past Gynecologic History: Court Deputy History LMP: 07/08/2023 (Exact Date), Having periods Age at Menarche: 14 Age at First : 27 Age at Menopause: Court Deputy History Comments: Sexual Activity: Never; No partner [...] included)... Normal [facility] MRI FEMALE PELVIS WO/W IVCON on 06-12-2023 [...] additional findings. IMPRESSION: No deep infiltrating endometriosis. Hat Brim Curler: DAVID Transcribe Date/Time: Jun 12 2023 2:54P Dictated by : ASHLEY DUKE MD This examination was interpreted and the report reviewed and electronically signed by: SONIDO FLAHERTY MD on Jun 12 2023 4:51PM EST [id number] [facility] CNPN Telephone (GYNMN) DRISS COPE ([id number]) 1995 F Date Time Provider Department 05/11/23 CHARLENE RODRIGUEZ GYNMN During your visit today, we recorded the following information about you: Tawana Nair [facility] 05/11/2023 1:21 PM Signed Reason for call: [...] 05/17/2023 1:00 PM CHARLENE RODRIGUEZ [facility] [phone] Christa Suárez RN Allergies As of Date: 05/11/2023 (No Known Allergies) Date Reviewed: 05/09/2023 Reviewed by: Srinivasa Downs APRN.PAINT MIXER HAND - Fully Assessed Reason for Visit: Vaginal [...] Status:Closed by CHRISTA WILLINGHAM on 05/11/23 Normal [facility] CNOVon 05-01-2023 [facility]ISS [facility] ([id number]) 1995 F Date Time Provider Department 05/01/23 10:30 AM [facility] your visit today, we recorded the following information about you: Blood pressure Weight Height Last Period 148/64 64.9 kg 1.575 m 04/22/23 Srinivasa Downs APRN.[employer] HAND 05/09/2023 11:46 AM Signed Driss Cope is a 28 year old female who presents for problem visit for pain HPI: Pain is week before period and week of period. Worse on her period for every day she's bleeding Urinary - No symptoms GI - Always constipated. No meds [place] - painful always Pain is on left [...] L0 SAB0 IAB0 Ectopic0 Multiple0 Live Births0 Court Deputy History LMP: 03/26/2023 (Approximate), Having periods Age at Menarche: Age at First : Age at Menopause: Court Deputy History Comments: Sexual Activity: Never; No partner [...] physical therapy - or can go locally pelvicrehab.[employer] Trial flexeril at bedtime Can consider [...] included)... Normal [facility] CHEMISTRYOrdered By: SYSTEM SYSTEM on 01-31-2023 Albumin [Mass/Vol] 4.3 g/dL Normal 3.3 - 5.0 gm/dL FT Remisol Albumin/Globulin [Mass ratio] 1.2 {ratio} Normal [...] rate/Area] mL/min/1.73 m2 Normal >=59mL/min/ 1.73 m2 [facility] Chem S GFR/1.73 sq M.predicted among non-blacks MDRD (S/P/Bld) [Vol rate/Area] mL/min/1.73 m2 Normal >=59mL/min/ 1.73 m2 [facility] Chem S Globulin (S) [...] Present (01/31/23 2:10 PM) Normal FT HemeManSS Erythrocyte distribution width (RBC) [Ratio] 15.8 [...] [Interp] See Morphology (01/31/23 2:10 PM) Normal [facility] HemeManSS Platelet mean volume [...] Normal 0.0 - 8.0 % FT HemeAutoSS Eosinophils/Leukocytes Auto (Bld) [Pure # fraction] [...] PM) Normal Negative [facility] UA Auto SS Clarks.plasma/Clarks .RBC (Bld) [Mass ratio] 0-3 /HPF Normal [...] FT UA Auto SS Urobilinogen Qn (U) 0.9012894 {Aspen'U}/dL Normal 0.0 - 1.0 EU/dL [facility] UA Auto SS WBC Auto Ql (U) Negative (01/31/23 1:57 PM) Normal Negative [facility] UA Auto SS WBC LM.HPF (Urine sed) [#/Area] 0-5 /HPF Normal 0-5/HPF FT UA Auto SS BLOOD BANKOrdered By: Teena Quiroz on 12-30-2022 ABO/Rh Interp Positive Invalid Interpretation Code FT BB Subsection ABSC Gel Interp Negative (12/30/22 11:28 AM) Normal FT BB Subsection CHEMISTRYOrdered By: SYSTEM SYSTEM on 12-30-2022 Anion gap [Moles/Vol] 12 mmol/L Normal 6 - 16 mEq/L [facility] Remisol Calcium [Mass/Vol] 8.6 mg/dL Low 8.9 [...] Normal >=59mL/min/ 1.73 m2 FT Chem S Glucose [Mass/Vol] 105 mg/dL Normal [...] AM) Normal Negative [facility] UA Auto SS Clarks.plasma/Clarks .RBC (Bld) [Mass ratio] 4-20 /HPF Normal [...] FT UA Auto SS Urobilinogen Qn (U) 0.2160272 {Aspen'U}/dL Normal 0.0 - 1.0 EU/dL [facility] UA Auto SS WBC Auto Ql (U) Negative (12/30/22 8:53 AM) Normal Negative [facility] UA Auto SS WBC LM.HPF (Urine sed) [#/Area] 0-5 /HPF Normal 0-5/HPF [facility] UA Auto SS Office Visiton 12-05-2022 Follow-up visit [id number] Aislinn Cope 1995 F Date Provider Department Center 12/05/2022 [id number], [place] [facility] None Chart Close Cosign Required by: Opal Ross MD[MONGD] No family history on file Level of Service:22226 [place] OFFICE/OUTPATIENT ESTABLISHED LOW MDM 20-29 MIN (GE,GC) Reason for Visit and Comments: Blood Pressure Check [299] Normal [facility] Progress Noteon 12-05-2022 Progress Note --- Attestation signed by Opal Ross MD at 12/05/2022 3:19 PM [facility]: This patient was seen in [facility] by the resident. I reviewed and [...] 4 weeks (around 01/02/2023) for Visit . [facility] Progress Note Vital signs BP 127/87 Weight 149.2lb Pulse 106 Temp 96.7 Normal [facility] Progress Noteon 12-02-2022 Progress Note Late [...] to discharge. Will make patient aware. Normal [facility] Progress Note VAGINAL DELIVERY POST DAY [...] (homozygous), FVL+Prothrombin (heterozygous), Antithrombin III, APLS Assessment/Plan: Dirss Cope is PPD # 2 s/p Care [...] DO Vanessa Zambrano DO 12/02/2022, 5:09 AM [facility] 42on 12-01-2022 42 22.5mm flanges given to patient. Encouraged her to call for observation of pump session and smaller flanges. Martha in NICU to assist with personal pump. Normal [facility] CARECOORDon 12-01-2022 ARIELLECOBOSTON 27 year old admitted for induction of [...] Denies any concerns at this time. Normal [facility] Progress Noteon 12-01-2022 Progress Note NOTE [...] with more than 50% of the total vzym-am-zdld time of the visit in counseling/coordination of care. , 9:22 AM [facility] 42on 11-30-2022 42 Swabs given to sharla nt and educated how to use and to bring to [facility] 42 Breast pump use indicated for this pt. Due to: infant in [facility] Hospital breast pump, supplies [...] pump Told patient to check with in [facility] for smaller flange sizes Normal [facility] Labor and Delivery Noteon Labor and Delivery [...] PreEwSF Post-operative Diagnosis: Live Born female Delivering Diesel Engineer & Condominium Association Manager(s): Dr. Bowden; Dr. Kramer Infant Information: Information for the patient's : Francie Cope [[id number]] Information for the patient's : Francie Cope [[id number]] Description: normal Meconium Noted: No Anesthesia: epidural [...] Immunity Status: No results found for: RUBELLATAMMI Kramer, 11/30/2022, 4:04 AM [facility] Progress Noteon 11-30-2022 Progress Note Chauhan catheter inser tank by Andi Bacon RN, catheter drained and emptied for 900cc. Catheter secured to leg. Normal [facility] Progress Note Patient up to bathro om but remains unable to void. Bladder scan completed and reads >570. Sent secure message to Dr. Ruiz letting her know the above. Instructed to place chauhan catheter. Normal [facility] Progress Note Secure message sent to Dr. Gamez stating patient is having difficulty voiding, patient's perineum is very swollen, and that patient was straight cathed for 950ml at noon. Received order for benadryl to help with swelling. Normal [facility] Progress Note Nutrition rescreen completed. Chart reviewed. Patient to be monitored and followed by the diet park maintenance technician. CRISS Oshea Normal [facility] Progress Note Patient unable to vo id, last straight cathed at 0400. Bladder scan obtained for >928 ml, fundus +2 and shifted to right. Patient straight cathed on attempt x2 by Andi Bacon RN for 950cc. Will continue to monitor. Normal [facility] CAREPLNon 11-29-2022 CAREPLN The patient will continue to make cervical change. Clotilde Mg RN Normal [facility] Laboratory - Hematology and Cell countsOrdered By: Lucrecia Cervantes on 11-29-2022 Platelets (Bld) [#/Vol] 386 10*3/uL 140 - 440 10*3/uL [facility] Platelets (Bld) [#/Vol]Order ed By: Lucrecia Cervantes on 11-29-2022 Interpretation and review of laboratory results Normal [facility] S. agalactiae DNA TENA+probe Ql (Unsp spec)on 11-29-2022 Group B Strep Screen Not detected Not Detected [facility] Interpretation and review of laboratory results Normal [facility] Methodology: real-ti me PCR [facility] ABO and Rh group Confirm Nom (Bld)on 11-28-2022 ABO group Nom (Bld) O [facility] D Ag Ql (RBC) Positive [facility] Blood type and Crossmatch pa chitra (Bld)on 11-28-2022 ABO group Nom (Bld) O [facility] Blood group antibody screen GEL Ql Negative [facility] D Ag Ql (RBC) Positive [facility] CBC panel Auto (Bld)Ordered By: Lauren Ayers on 11-28-2022 Erythrocyte distribution width (RBC) [Ratio] 13.3 % 11.5 - 14.5 % [facility] Hematocrit (Bld) [Volume fraction] 33.8 % Low 35.0 - 47.0 % [facility] Hemoglobin (Bld) [Mass/Vol] 11.2 g/dL Low 11.7 - 16.0 g/dL [facility] Interpretation and review of laboratory results Abnormal [facility] MCH (RBC) [Entitic mass] 28.0 pg 26.0 - 34.0 pg [facility] MCHC (RBC) [Mass/Vol] 33.1 % 32.0 - 36.0 % [facility] MCV (RBC) [Entitic vol] 84.4 fL 80.0 - 98.0 fL [facility] Platelet mean volume (Bld) [Entitic vol] 8.3 fL 7.4 - 12.4 fL [facility] Platelets (Bld) [#/Vol] 319 10*3/uL 140 - 440 10*3/uL [facility] RBC (Bld) [#/Vol] 4.00 10*6/uL 3.8 - 5.20 10*6/uL [facility] WBC (Bld) [#/Vol] 18.9 10*3/uL High 3.6 - 10.7 10*3/uL [facility] Comprehensive metabolic 1998 panelon 11-28-2022 Albumin [Mass/Vol] 3.9 g/dL 3.5 - 5.0 g/dL [facility] ALP [Catalytic activity/Vol] 201 U/L High 38 - 126 U/L [facility] ALT [Catalytic activity/Vol] 15 U/L 0 - 34 U/L [facility] Anion gap [Moles/Vol] 7 mmol/L 3 - 13 mmol/L [facility] AST [Catalytic activity/Vol] 28 U/L 15 - 46 U/L [facility] Bilirubin [Mass/Vol] 0.9 mg/dL 0.2 - 1 .3 mg/dL [facility] Calcium [Mass/Vol] 8.2 mg/dL Low 8.4 - 10. 4 mg/dL [facility] Chloride [Moles/Vol] 109 mmol/L High 98 - 10 7 mmol/L [facility] CO2 [Moles/Vol] 17 mmol/L Low 22 - 30 mmol/L [facility] Creatinine [Mass/Vol] 0.53 mg/dL 0.52 - 1.04 mg/dL [facility] GFR/1.73 sq M.predicted MDRD (S/P/Bld) [Vol rate/Area] - PINF [facility] Comment on above: Calculation based on the Chronic Kidney Disease Epidemiology Collaboration (CKD-EPI) equation refit without adjustment for race Glucose [Mass/Vol] 158 mg/dL High 70 - 100 mg/dL [facility] Interpretation and review of laboratory results Abnormal [facility] Potassium [Moles/Vol] 4.1 mmol/L 3.5 - 5.1 mmol/L [facility] Protein [Mass/Vol] 7.5 g/dL 6.3 - 8.2 g/dL [facility] Sodium [Moles/Vol] 133 mmol/L Low 135 - 145 mmol/L [facility] Urea nitrogen [Mass/Vol] 5 mg/dL Low 7 - 17 mg/dL [facility] Laboratory - Hematology and Cell countsOrdered By: Shruthi Fontana on 11-28-2022 Platelets (Bld) [#/Vol] 335 10*3/uL 140 - 440 10*3/uL [facility] Platelets (Bld) [#/Vol]Order ed By: Shruthi Fontana on 11-28-2022 Interpretation and review of laboratory results Normal [facility] CHEMISTRYOrdered By: [employer] on 11-27-2022 Free T4 index Calc [...] Invalid Interpretation Code <10 [facility] Man Sero Fibrinogen Coag [...] 27.3 pg Normal 27.0 - 34.0 pg FT HemeAutoSS MCHC (RBC) [Mass/Vol] 32.3 g/dL Normal 31.4 - 36.0 gm/dL FT HemeAutoSS MCV (RBC) [Entitic vol] 84.6 fL Normal 80.0 - 100.0 fL FT HemeAutoSS Platelet mean volume (Bld) [Entitic vol] 8.2 fL Normal 6.4 - 10.8 fL FT HemeAutoSS Platelets (Bld) [#/Vol] 273.0 E9/L Normal 150.0 - 500.0 E9/L FT [...] PM) Normal Negative [facility] UA Auto SS Clarks.plasma/Clarks .RBC (Bld) [Mass ratio] 4-20 /HPF Normal [...] [facility] UA Auto SS Urobilinogen Qn (U) 0.7318510 {Aspen'U}/dL Normal 0.0 - 1.0 EU/dL [facility] [...] AM) Normal Negative [facility] UA Auto SS Clarks.plasma/Clarks .RBC (Bld) [Mass ratio] 0-3 /HPF Normal [...] [facility] UA Auto SS Urobilinogen Qn (U) 0.5062699 {Aspen'U}/dL Normal 0.0 - 1.0 EU/dL [facility] [...] a) No falls within the last year AT-AHTTT-Fgj man 320 Work Phone: Last menstrual period start date unsure NB-JETBI-Qnn man 320 Work Phone: Tobacco use status CP b) No JJ-YESKK-Tuo man 320 Work Phone: 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 endometriosis: discussed options continue norethindrone rx'd orilissa 200 mg bid rtc in 3 months Chief Complaint patient here to discuss pain related to endometriosis, declined french edge operator. CH PSYCHOMETRICIAN History of Present Igagyac26 yo presents as a follow up for [...] again engaged x 1 year working at [employer] in [place] Review of Systems Constitutional: no fever, no [...] hours Vitals Vital Signs Recorded: 09Feb2022 11:41AM Avgoclqa520 Xbksmxzhz61 Height5 ft 2 in Nidwnv354 lb BMI Rphkdfenln14.51 kg/m2 BSA Calculated1.61 Tobacco Useb) No Fall [...] Feb 09 2022 12:21PM EST (Author) Normal [facility] XR KNEE LEFT (MIN 4 VIEWS)on 09-29-2021 [...] Tashi Lopez MD 09/29/21 Final result Normal [facility] WAGON DRIVER SALESPERSON - Office Visiton 07-0 WAGON DRIVER SALESPERSON - Office Visit Diagnoses/Problems Assessed Anxiety (300.00) (F41.9) Orders Start: FLUoxetine HCl - 20 MG Oral Capsule; TAKE 1 CAPSULE Daily Provider Impressions 26 yo 1. endometriosis - discussed treatment options rx'd Prozac for mood rx'd norethindrone rtc in 3 months Chief Complaint patient to follow up on medication from last visit in march 2021, declined french edge operator. CH PSYCHOMETRICIAN History of Present Qlrokfn39 yo with endometriosis was on norethindrone d/c'd [...] Every 6 hours Vitals Vital Signs Recorded: [id number] 01:19PM Lskvqrgx197 Hjjsmfzxw59 Height5 ft 2 in Vkqahy267 lb BMI Lpotjpkkzw47.58 kg/m2 BSA Calculated1.53 Tobacco Useb) No Fall Screeninga) No falls within the last year [id number] Pain Scale0 Signatures Electronically signed by : Charlene Rodriguez DO; Jun 03 2021 10:55AM EST (Author) Normal [facility] Chlamydia sp identified Org specific cx Nom (Genital specimen)Ordered By: Jackelyn Dela Cruz on 05-16-2021 External Chlamydia Screen Negative Negative [facility] HBV surface Ag IA Qlon 05-16 External Hepatitis B Surface Ag Negative Negative, None Detected [facility] HIV 1+2 Ab and HIV1 p24 Ag I A.rapid Nom (S/P/Bld)on 05-16-2021 HIV-1/HIV-2 Ab Negative [facility] No Panel Informationon 05-16 External Gonorrhea Screen Negative Negative [facility] External Rubella IGG Quantitation Positive [facility] No Panel InformationOrdered By: Jackelyn Dela Cruz on 05-16-2021 [facility] Reagin Ab RPR Ql (S)on 05-16 External RPR Non-Reactive Borderline, Nonreactive , Weakly Reactive, Equivocal [facility] WAGON DRIVER SALESPERSON - Office Visiton 03-27 WAGON DRIVER SALESPERSON - Office Visit Diagnoses/Problems Assessed Endometriosis (617.9) (N80.9) Never smoker Orders Stop: Norethindrone Acetate 5 MG Oral Tablet Tobacco Use Screening; Status:Complete; Done: 36Tvx3012 Provider Impressions 26 yo 1. endometriosis: rx'd norethindrone referral to pelvic floor PT rtc in 3-6 months if continues to have pain, will consider centrally acting neuromodulator Chief Complaint Patient presents today for f/u for endometriosis PAP per patient 2019 WNL Temporary Receptionist declined -CATY,PSYCHOMETRICIAN LMP 04/11/21 History of Present Bgqfnqo67 yo with endometriosis bleeding once per month, [...] 6 hours Signatures Electronically signed by : Chalrene Rodriguez DO; Apr 20 2021 11:04AM EST (Author) Normal [facility] Tobacco Screening.on Fall risk assessment a) No falls within the last year XQ-ZKDEN-Lub man 320 Work Phone: Last menstrual period start date 11Apr2021 PJ-XMTST-Hee man 320 Work Phone: Tobacco Screening. b) No MG-OBG YN-Ris man 320 Work Phone: Radiologyon 04-14-2021 US Kidney - bilateral Normal [facility]- [facility] [place] Work Phone: US RENAL BILATon 04-14-2021 US RENAL BILAT Patient Name: DRISS COPE STUDY: US RENAL BILAT; 04/14/2021 1:14 pm INDICATION: Recurrent UTI. COMPARISON: None. ACCESSION NUMBER(S): [id number] ORDERING CLINICIAN: NICHOLAS CHAU TECHNIQUE: Multiple images [...] Electronically signed by: GENEVIEVE BREEN MD Normal [facility] Office Visit (Urology)on Follow-up visit Diagnoses/Problems Assessed Recurrent UTI (599.0) (N39.0) Orders Recurrent UTI Start: Nitrofurantoin Monohyd Macro 100 MG Oral Capsule; TAKE 1 CAPSULE Other Please take one capsule after sexual intercourse to prevent UTI Rx By: Nicholas Chau; Dispense: 30 Days ; #:30 Capsule; Refill: 11;For: Recurrent UTI; ROSY = N; [place] [address] Ultrasound Kidney Bilateral; Status:Hold For - Scheduling; Requested for:[id number]; Perform:[facility]; Due:28Hpt0222; Last Updated By:Isela Terrazas; 04/01/2021 9:16:17 AM;Ordered; [...] UTI; ROSY = N; Verified Transmission to [place] [address] Provider Impressions 26 year old female with history of endometriosis presents today via telehealth as a new patient for evaluation of recurrent UTIs. She reports getting UTIs at least once per month, noting occasional nocturia. Symptoms include burning, frequency, and back pain. She states that some UTIs are related to sexual intercourse but most are not. Patient reports she saw Dr. Booth at [facility] in [place], noting she was only treated with medications and urethral dilation for a supposed stricture. Denies gross hematuria. Patient is a non-smoker. Urine culture from [facility] on 03/04/21 was positive for E. coli, [...] consent was requested and obtained from DRISS BARBERBOYD on this date, 04/01/2021 08:40 AM , for a telehealth visit. NPV - recurrent UTI History of Present Lkfsssc34 year old female with history of endometriosis presents today via telehealth as a new patient for evaluation of recurrent UTIs. She reports getting UTIs at least once per month, noting occasional nocturia. Symptoms include burning, frequency, and back pain. She states that some UTIs are related to sexual intercourse but most are not. Patient reports she saw Dr. Booth at [facility] in [place], noting she was only treated with medications [...] DATE OF EXAM: Nov 05 2020 12:26PM [facility] 0017 - [place] GASTRIC EMPTYING SOLID / [...] 4 HOURS IS CONSISTENT WITH MILD GASTROPARESIS. Hat Brim Curler: DAVID Transcribe Date/Time: Nov 05 2020 1:09P Dictated by : BRUNO PEREA MD This examination was interpreted and the report reviewed and electronically signed by: BRUNO PEREA MD on Nov 05 2020 1:24PM EST [id number] Normal [facility] ANES POSTPROC EVALon 020 ANES POSTPROC EVAL HNO ID: [id number] Author: Austin Story Service: ? Author Type: [...] October 25, 2020 TIME: 2:52 PM CSN: [id number] [facility] ANES PRE-OPon 10-25-2020 ANES PRE-OP HNO ID: [id number] Author: Austin Story Service: ? Author Type: [...] October 25, 2020 TIME: 1:08 PM CSN: [id number] Normal [facility] SURGICAL PATHOLOGYon 020 SURGICAL PATHOLOGY Specimen originated from [facility] Specimen #: [id number] Submitting Physician: DAVID CRUZ MD FINAL DIAGNOSIS 1. Small bowel, biopsy (A) - Small bowel mucosa with no pathologic diagnostic abnormality; negative for celiac disease, granulomas and dysplasia. 2. Stomach, biopsy (B) - Gastric oxyntic-type mucosa with no pathologic diagnostic abnormality; see comment. /[facility] 10/26/2020 COMMENT 2. No microorganisms [...] in one cassette. Gross examination performed at [facility], [address] [place] [address] 10/25/2020 7:59:40 PM Date of Report: 10/26/2020 Date of Procedure: 10/25/2020 Date of Receipt: 10/25/2020 Submitted by: DAVID CRUZ MD Location: AV[facility] Diagnostic interpretation performed at [place] [address]. CLIA Number: [id number] Normal [facility] Reference Lab Comment on above: Performed By: #### S #### See report for performing lab information. SURGICAL PATHOLOGY Specimen originated from [facility] Specimen #: [id number] Submitting Physician: DAVID CRUZ MD FINAL DIAGNOSIS [...] in one cassette. Gross examination performed at [facility], [address] [place] [address] EJL 10/25/2020 7:59:40 PM Date of Report: 10/26/2020 Date of Procedure: 10/25/2020 Date of Receipt: 10/25/2020 Submitted by: DAVID CRUZ MD Location: [facility] Diagnostic interpretation performed at [facility], [address] [place] [address]. CLIA Number: [id number] Normal [facility] ABO/RH GROUP TESTon 09-01-20 ABO TYPE O Normal [facility] Comment on above: Performed By: #### V ERAB #### [facility] [address] [place] [address] RH TYPE Positive Normal [facility] Comment on above: Performed By: #### V ERAB #### [facility] [address] [place] [address] [facility] Pathology Dep artmenton 09-01-2020 [facility] Department Name DRISS COPE Pathologist: ASHLEY HURTADO MD Date of Procedure: 09/01/2020 Date Received: 09/01/2020 Date Reported 09/03/2020 Submitting Physician: CHARLENE RODRIGUEZ D.O. Location: [facility] External # FINAL DIAGNOSIS A. LEFT [...] ENDOMETRIOSIS. Electronically Signed Out By ASHLEY HURTADO MD/JESSIEP By the signature on this report, the [...] D. Right pelvic sidewall peritoneum are 2 efpd-juc-xxt, irregular fragments of tissue measuring 1.3 x [...] in toto in one cassette. SB /09/02/2020 [facility] Department of Pathology [address] [place] [address] Normal [facility] Comment on above: Performed By: #### A #### [facility] Department [address] [place] [address] History and Physical - Surge ry > [...] T&S: O+, COVID-19: negative OB Hx: None. Court Deputy Hx: As above. PMHx: endometriosis Surg Hx: diagnostic laparoscopy, appendectomy (2015) Meds: Meloxicam, [place]-Linyah, Norethindrone acetate Social Hx: No tobacco, no [...] the note. I personally evaluated the patient [id number] Attending Provider Inpatient Certification StatementObservation patient/other outpatient [...] 01-Sep-2020 10:04 by Charlene Rodriguez () Normal [facility] Homegoing Instructionson Homegoing Instructions Additional Instructions: Handouts Given: Topic 1Anesthesia Homegoing Instructions Topic 2Surgical Site Infection Handout Topic 3New Medication Education Topic 4Suggamedex handout Electronic Signatures: Aminata Gomez) (Signed 01-Sep-2020 16:07) Authored: Additional Instructions Last Updated: 01-Sep-2020 16:07 by Aminata Gomez (DIALLO) Normal [facility] Patient Profile - Preop v2on 09-01-2020 Patient Profile - Preop v2 Profile: Initial Info: How to be Addressedalexis Spoken Language PreferredEnglish Are you currently using the Personal [employer] Health Record or [employer] Stated Reason for Admissionseeing if my endometriosis is back Primary Contact Name and Numberlogan [phone] Patient Belongingsclothing locker glasses with bf Medications Brought to Hospital[facility] General Health: Weight in kg55.6 kilogram(s) Weight in otl415.5 pound(s) Weight Methodactual (measured) Scale Typestanding Height [...] Arrangementshouse Lives Withparent(s) Resource/Environmental Concernsnone Anticipated Transition [facility] Services Anticipated at Transitionnone Substance: Current or [...] Learning Preferencesverbal instruction Cultural Considerationsnone Developmental Considerationsnone Buddhist Considerationsnone Other learner availableno Falls RiskPatient location auto qualifies him/her for HIGH RISK. Are there any cultural, spiritual, christian practices/values/needs that are important for us to [...] Surgery > 30 days 01-Sep-2020 03:42 Normal [facility] Preop Checkliston 09-01-2020 Preop Checklist Preop Checklist: Preop Checklist: Arrival [id number] Arrival Time12:30 Procedure Typelaparoscopic endometriosis excision NPO Ineycj27-Pkz-2019 00:00 ID Band Onyes Allergy Bandno known [...] 01-Sep-2020 12:35 by Sierra Kraft (RN) Normal [facility] ANTIBODY IDENT.on 08-31-2020 ANTIBODY IDENT. SEE BELOW Normal [facility] Comment on above: Result Comment: NO C LINICALLY SIGNIFICANT ANTIBODIES IDENTIFIED. Performed By: #### A BID #### [facility] [address] [place] [address] CBCon 08-30-2020 Erythrocyte distribution width (RBC) [Ratio] 12.1 % Normal 11.5 - 14.5 [facility] Comment on above: Performed By: #### C BC #### [address] [id number] Hematocrit (Bld) [Volume fraction] 39.6 % Normal 36.0 - 46.0 [facility] Comment on above: Performed By: #### C BC #### [address] [id number] Hemoglobin (Bld) [Mass/Vol] 12.6 g/dL Normal 12.0 - 16.0 [facility] Comment on above: Performed By: #### C BC #### [address] [id number] MCHC (RBC) [Mass/Vol] 31.8 g/dL Low 32.0 - 36.0 [facility] Comment on above: Performed By: #### C BC #### [address] [id number] MCV (RBC) [Entitic vol] 90 fL Normal 80 - 100 [facility] Comment on above: Performed By: #### C BC #### [address] [id number] Platelets (Bld) [#/Vol] 333 10*3/uL Normal 150 - 450 [facility] Comment on above: Performed By: #### C BC #### [address] [id number] RBC 4.42 x10E12/L Normal 4.00 - 5.20 [facility] Comment on above: Performed By: #### C BC #### [address] [id number] WBC (Bld) [#/Vol] 5.6 10*3/uL Normal 4.4 - 11.3 [facility] Comment on above: Performed By: #### C BC #### [address] [id number] CORONAVIRUS 2019, SCREEN ASY MPTOMATICon 08-30-2020 SARS-CoV-2 (COVID-19) RNA TENA+probe Ql (Unsp spec) Not detected Normal Not Detected [facility] Comment on above: Result Comment: This assay [...] patient management decisions. Fact sheet for providers: https://www.fda.gov/media/715160/download Fact sheet for patients: https://www.fda.gov/media/860235/download This test has received FDA Emergency Use Authorization (EUA) and has been verified by [facility] ([facility]). This test is only authorized for the duration of time that circumstances exist to justify the authorization of the emergency use of in vitro diagnostic tests for the detection of SARS-CoV-2 virus and/or diagnosis of COVID-19 infection under section 564(b)(1) of the Act, 21 U.S.C. 360bbb-3(b)(1), unless the authorization is terminated or revoked sooner. [facility] is certified under CLIA-88 as qualified to perform high complexity testing. Testing is performed in the [facility] laboratories located at [address] [place] [address]. Performed By: #### C OVSC #### [address] [place] [address] Lab Specimen Source Nasal, Nasopharyngeal Normal [facility] Comment on above: Performed By: #### C OVSC #### [address] [place] [address] TYPE + SCREENon 08-30-2020 ABO TYPE O Normal [facility] Comment on above: Performed By: #### T +S #### [facility] [address] [place] [address] RH TYPE Positive Normal [facility] Comment on above: Performed By: #### T +S #### [facility] [address] [place] [address] ABO TYPE Canceled Normal [facility] Comment on above: Order Comment: TEST TYPE + SCREEN WAS CANCELLED, 08/30/2020 13:37 JOP. Performed By: #### T +S #### [address] [place] [address] RH TYPE Canceled Normal [facility] Comment on above: Order Comment: TEST TYPE + SCREEN WAS CANCELLED, 08/30/2020 13:37 JOP. Performed By: #### T +S #### [place] [address] HOSPon 07-29-2020 HOSP Patient:Flavio Cope MRN: Height:5' [...] for the following basenames: K,HCT Progress Notes ([facility] REJ AV4): Jaquelin Wesley Ma 10/19/2020 [...] 1 10 oz. Bottle of Magnesium Citrate (Lemon/Aniak) ? A test for COVID 19 test [...] toast without seeds (not multigrain); pretzels; waffles, Lao toast and pancakes; white rice, noodles, pasta, macaroni, peeled cooked potatoes; Special K, Rice Krispies or Assaria Flakes cereals; ripe bananas; melons (except watermelon [...] carbonated beverages such as chi aislinn or lemon-[place] point soda; Gatorade? or other sports drinks (not [...] make sure you have a responsible adult professional driver to take you home after procedure. Due to having sedation, you may not drive the rest of the day. ? If you need to reschedule, please call [phone] ?Date/Provider Dr Cruz Procedure:colonoscpy Facility:[facility] Prep ordered( if aware):miralax Knowledge of prep instructions:posted to [employer] Diabetic:no Blood Thinners:no Pacemaker with defibrillator:no left message for patient to return call. Nurse triage please give below message. PLEASE READ PATIENT INSTRUCTIONS BELOW. THANK YOU. Normal [facility] PROGRESSon 07-29-2020 PROGRESS HNO ID: [id number] Author: Fito Stapleton (Rt) Service: Radiology Author Type: School Lunch Manager Type: Progress Notes Filed: 07/29/2020 11:06 AM [...] RT Daya July 29, 2020 11:01 AM [facility] XR ABD 2V SUPINE W UPR/DECUB [...] structures are normal. No other significant abnormality. Hat Brim Curler: PSCB Transcribe Date/Time: Jul 29 2020 11:19A Dictated by : LALI ORNELAS MD This examination was interpreted and the report reviewed and electronically signed by: LALI ORNELAS MD on Jul 29 2020 11:19AM EST [id number] [facility] Vital Signs Date Time Vital Sign Value Performing Clinician Facility 08-27-2025 15:37-0400 Body mass index (BMI) [Ratio] 29.23 kg/m2 Marbella Keane NP Work Phone: [facility] 08-27-2025 15:37-0400 Body weight 72.48 kg Marbella Keane SHEET COMBINING OPERATOR Work Phone: [facility] 08-27-2025 15:37-0400 Diastolic blood pressure 92 mm[Hg] Marbella Keane SHEET COMBINING OPERATOR Work Phone: [facility] 08-27-2025 15:37-0400 Systolic blood pressure 158 mm[Hg] Marbella Keane SHEET COMBINING OPERATOR Work Phone: [facility] 08-24-2025 15:55-0400 Body mass index (BMI) [Ratio] 29.45 kg/m2 Teena Sarmiento RN Work Phone: [facility] 08-24-2025 15:55-0400 Body weight 73.03 kg Teena Sarmiento RN Work Phone: [facility] 08-12-2025 14:32-0400 Body mass index (BMI) [Ratio] 27.82 kg/m2 Nathan Kiesha DO Work Phone: [facility] 08-12-2025 14:32-0400 Body weight 69 kg Nathan Kiesha DO Work Phone: [facility] 08-12-2025 14:32-0400 Diastolic blood pressure 82 mm[Hg] Nathan Kiesha DO Work Phone: [facility] 08-12-2025 14:32-0400 Systolic blood pressure 138 mm[Hg] Nathan Kiesha DO Work Phone: [facility] 07-30-2025 15:36-0400 Body height 157.5 cm Nay Beltran DO Work Phone: [facility] 07-30-2025 15:36-0400 Body mass index (BMI) [Ratio] 27.62 kg/m2 Nay Beltran DO Work Phone: [facility] 07-30-2025 15:36-0400 Body temperature 97.11 [degF] Nay Beltran DO Work Phone: [facility] 07-30-2025 15:36-0400 Body weight 68.49 kg Nay Beltran DO Work Phone: [facility] 07-30-2025 15:36-0400 Diastolic blood pressure 68 mm[Hg] Nay Beltran DO Work Phone: [facility] 07-30-2025 15:36-0400 Heart rate 97 /min Nay Beltran DO Work Phone: [facility] 07-30-2025 15:36-0400 SaO2% (BldA) [Mass fraction] 98 % Nay Beltran DO Work Phone: [facility] 07-30-2025 15:36-0400 Systolic blood pressure 102 mm[Hg] Nay Beltran DO Work Phone: [facility] 07-15-2025 15:42-0400 Body mass index (BMI) [Ratio] 26.48 kg/m2 Nathan Kiesha DO Work Phone: [facility] 07-15-2025 15:42-0400 Body weight 65.68 kg Nathan Kiesha DO Work Phone: [facility] 07-15-2025 15:42-0400 Diastolic blood pressure 80 mm[Hg] Nathan Kiesha DO Work Phone: [facility] 07-15-2025 15:42-0400 Systolic blood pressure 120 mm[Hg] Nathan Kiesha DO Work Phone: [facility] 06-22-2025 14:33-0400 Body mass index (BMI) [Ratio] 26.73 kg/m2 Nathan Kiesha DO Work Phone: [facility] 06-22-2025 14:33-0400 Body weight 66.28 kg Nathan Kiesha DO Work Phone: [facility] 06-22-2025 14:33-0400 Diastolic blood pressure 74 mm[Hg] Nathan Kiesha DO Work Phone: [facility] 06-22-2025 14:33-0400 Systolic blood pressure 118 mm[Hg] Nathan Kiesha DO Work Phone: [facility] 05-25-2025 14:45-0400 Body mass index (BMI) [Ratio] 25.24 kg/m2 Nathan Kiesha DO Work Phone: [facility] 05-25-2025 14:45-0400 Body weight 62.6 kg Nathan Kiesha DO Work Phone: [facility] 05-25-2025 14:45-0400 Diastolic blood pressure 80 mm[Hg] Nathan Kiesha DO Work Phone: [facility] 05-25-2025 14:45-0400 Systolic blood pressure 122 mm[Hg] Nathan Kiesha DO Work Phone: [facility] 05-01-2025 10:29-0400 Body mass index (BMI) [Ratio] 25.68 kg/m2 [facility] Nurse [facility] 05-01-2025 10:29-0400 Body weight 63.69 kg [facility] Nurse [facility] 01-19-2025 15:08-0500 Body mass index (BMI) [Ratio] 25.99 kg/m2 Nathan Kiesha DO Work Phone: [facility] 01-19-2025 15:08-0500 Body weight 64.47 kg Nathan Kiesha DO Work Phone: [facility] 01-19-2025 15:08-0500 Diastolic blood pressure 78 mm[Hg] Nathan Kiesha DO Work Phone: [facility] 01-19-2025 15:08-0500 Systolic blood pressure 122 mm[Hg] Nathan Kiesha DO Work Phone: [facility] 12-30-2024 15:53-0500 Body height 157.5 cm Nay Beltran DO Work Phone: [facility] 12-30-2024 15:53-0500 Body mass index (BMI) [Ratio] 25.61 kg/m2 Nay Beltran DO Work Phone: [facility] 12-30-2024 15:53-0500 Body temperature 97.11 [degF] Nay Nirajdaly DO Work Phone: [facility] 12-30-2024 15:53-0500 Body weight 63.5 kg Nay Beltran DO Work Phone: [facility] 12-30-2024 15:53-0500 Diastolic blood pressure 82 mm[Hg] Nay Beltran DO Work Phone: [facility] 12-30-2024 15:53-0500 Heart rate 51 /min Nay Beltran DO Work Phone: [facility] 12-30-2024 15:53-0500 SaO2% (BldA) [Mass fraction] 98 % Nay Beltran DO Work Phone: [facility] 12-30-2024 15:53-0500 Systolic blood pressure 122 mm[Hg] Nay Beltran DO Work Phone: [facility] 08-18-2024 11:15-0400 Body mass index (BMI) [Ratio] 25.97 kg/m2 Nathan Kiesha DO Work Phone: [facility] 08-18-2024 11:15-0400 Body weight 64.41 kg Nathan Kiesha DO Work Phone: [facility] 08-18-2024 11:15-0400 Diastolic blood pressure 70 mm[Hg] Nathan Kiesha DO Work Phone: [facility] 08-18-2024 11:15-0400 Systolic blood pressure 112 mm[Hg] Nathan Kiesha DO Work Phone: [facility] 07-22-2024 10:02-0400 Body mass index (BMI) [Ratio] 25.39 kg/m2 Nathan Kiesha DO Work Phone: [facility] 07-22-2024 10:02-0400 Body weight 62.96 kg Nathan Kiesha DO Work Phone: [facility] 07-22-2024 10:02-0400 Diastolic blood pressure 72 mm[Hg] Nathan Kiesha DO Work Phone: [facility] 07-22-2024 10:02-0400 Systolic blood pressure 122 mm[Hg] Nathan Kiesha DO Work Phone: [facility] 01-10-2024 10:55-0500 Body mass index (BMI) [Ratio] 28.17 kg/m2 Nathan Kiesha DO Work Phone: [facility] 01-10-2024 10:55-0500 Body weight 69.85 kg Nathan Kiesha DO Work Phone: [facility] 01-10-2024 10:55-0500 Diastolic blood pressure 84 mm[Hg] Nathan Kiesha DO Work Phone: [facility] 01-10-2024 10:55-0500 Systolic blood pressure 128 mm[Hg] Nathan Kiesha DO Work Phone: [facility] 09-12-2023 17:31-0400 Body temperature 98.96 [degF] [facility] 09-12-2023 17:31-0400 Diastolic blood pressure 91 mm[Hg] [facility] 09-12-2023 17:31-0400 FIO2 99 % Vongabriela Loco [facility] 09-12-2023 17:31-0400 Heart rate 122 /min [facility] 09-12-2023 17:31-0400 Respiratory rate 16 /min [facility] 09-12-2023 17:31-0400 Systolic blood pressure 135 mm[Hg] [facility] 05-01-2023 10:55-0400 Body height 157.5 cm Srinivasa Reaper OPERATOR/ASSISTANT FOREMAN.PAINT MIXER HAND Work Phone: [facility] 05-01-2023 10:55-0400 Body weight 64.86 kg Srinivasa Reaper OPERATOR/ASSISTANT FOREMAN.PAINT MIXER HAND Work Phone: [facility] 05-01-2023 10:55-0400 Diastolic blood pressure 64 mm[Hg] Srinivasa Reaper OPERATOR/ASSISTANT FOREMAN.PAINT MIXER HAND Work Phone: [facility] 05-01-2023 10:55-0400 Systolic blood pressure 148 mm[Hg] Srinivasa Reaper OPERATOR/ASSISTANT FOREMAN.PAINT MIXER HAND Work Phone: [facility] 01-31-2023 19:18-0500 Diastolic blood pressure 82 mm[Hg] [facility] 01-31-2023 19:18-0500 Heart rate 98 /min [facility] 01-31-2023 19:18-0500 Nursing Progress Note Reason Other: this RN discharged pt. pt verbalizes understanding and denies questiosn prior to discharge. [facility] 01-31-2023 19:18-0500 Respiratory rate 16 /min [facility] 01-31-2023 19:18-0500 SaO2% (BldA) [Mass fraction] 100 % [facility] 01-31-2023 19:18-0500 Systolic blood pressure 126 mm[Hg] [facility] 01-31-2023 18:00-0500 Diastolic blood pressure 92 mm[Hg] [facility] 01-31-2023 18:00-0500 Heart rate 110 /min [facility] 01-31-2023 18:00-0500 Mean blood pressure 107 mm[Hg] [facility] 01-31-2023 18:00-0500 SaO2% (BldA) [Mass fraction] 99 % [facility] 01-31-2023 18:00-0500 Systolic blood pressure 138 mm[Hg] [facility] 01-31-2023 17:00-0500 Diastolic blood pressure 97 mm[Hg] [facility] 01-31-2023 17:00-0500 Mean blood pressure 104 mm[Hg] [facility] 01-31-2023 17:00-0500 Systolic blood pressure 117 mm[Hg] [facility] 01-31-2023 16:38-0500 Heart rate 105 /min [facility] 01-31-2023 16:38-0500 Mean blood pressure 114 mm[Hg] [facility] 01-31-2023 16:38-0500 Respiratory rate 18 /min [facility] 01-31-2023 13:49-0500 Body temperature 97.88 [degF] [facility] 01-31-2023 13:49-0500 Heart rate 118 /min [facility] 12-30-2022 14:55-0500 Body temperature 97.88 [degF] [facility] 12-30-2022 14:55-0500 Diastolic blood pressure 81 mm[Hg] [facility] 12-30-2022 14:55-0500 Heart rate 84 /min [facility] 12-30-2022 14:55-0500 Mean blood pressure 100 mm[Hg] [facility] 12-30-2022 14:55-0500 Respiratory rate 20 /min [facility] 12-30-2022 14:55-0500 SaO2% (BldA) [Mass fraction] 98 % [facility] 12-30-2022 14:55-0500 Systolic blood pressure 137 mm[Hg] [facility] 12-30-2022 14:35-0500 Body temperature 97.88 [degF] [facility] 12-30-2022 14:35-0500 Diastolic blood pressure 79 mm[Hg] [facility] 12-30-2022 14:35-0500 Heart rate 82 /min [facility] 12-30-2022 14:35-0500 Mean blood pressure 94 mm[Hg] [facility] 12-30-2022 14:35-0500 Respiratory rate 16 /min [facility] 12-30-2022 14:35-0500 SaO2% (BldA) [Mass fraction] 97 % [facility] 12-30-2022 14:35-0500 Systolic blood pressure 123 mm[Hg] [facility] 12-30-2022 13:35-0500 Body temperature 97.88 [degF] [facility] 12-30-2022 13:35-0500 Diastolic blood pressure 70 mm[Hg] [facility] 12-30-2022 13:35-0500 Heart rate 80 /min [facility] 12-30-2022 13:35-0500 Mean blood pressure 89 mm[Hg] [facility] 12-30-2022 13:35-0500 Respiratory rate 17 /min [facility] 12-30-2022 13:35-0500 SaO2% (BldA) [Mass fraction] 96 % [facility] 12-30-2022 13:35-0500 Systolic blood pressure 126 mm[Hg] [facility] 12-30-2022 13:00-0500 Respiratory rate 12 /min [facility] 12-30-2022 12:55-0500 Respiratory rate 9 /min [facility] 12-30-2022 12:50-0500 Respiratory rate 10 /min [facility] 12-30-2022 08:15-0500 Body temperature 98.24 [degF] [facility] 12-30-2022 08:15-0500 Heart rate 111 /min [facility] 12-02-2022 13:41-0500 Body temperature 98.2 [degF] Ritu Ryder DO Work Phone: [facility] [employer] 12-02-2022 13:41-0500 Diastolic blood pressure 87 mm[Hg] Ritu Ryder DO Work Phone: [facility] [employer] 12-02-2022 13:41-0500 Heart rate 111 /min Ritu Ryder DO Work Phone: [facility] [employer] 12-02-2022 13:41-0500 Respiratory rate 18 /min Ritu Ryder DO Work Phone: [facility] [employer] 12-02-2022 13:41-0500 SaO2% (BldA) [Mass fraction] 99 % Ritu Ryder DO Work Phone: [facility] [employer] 12-02-2022 13:41-0500 Systolic blood pressure 143 mm[Hg] Ritu Ryder DO Work Phone: [facility] [employer] 11-28-2022 00:45-0500 Body height 157.5 cm Ritu Ryder DO Work Phone: [facility] [employer] 11-28-2022 00:45-0500 Body mass index (BMI) [Ratio] 25.61 kg/m2 Ritu Ryder DO Work Phone: [facility] [employer] 11-28-2022 00:45-0500 Body weight 63.5 kg Ritu Ryder DO Work Phone: [facility] [employer] 11-27-2022 22:26-0500 Hourly Rounding Fredi DORSEY [facility] Comment on above: Result Comment: ensured that all pt belo ngings are sent with pt. pt has no questions or concerns. report given to EMS. pt stable and no s/s of distress. pt off unit to transfer 11-27-2022 22:00-0500 Diastolic blood pressure 97 mm[Hg] Fredi DORSEY [facility] 11-27-2022 22:00-0500 Heart rate 134 /min Fredi DORSEY [facility] 11-27-2022 22:00-0500 Hourly Rounding Fredi KARASIK [facility] 11-27-2022 22:00-0500 Mean blood pressure 116 mm[Hg] Fredi KARASIK [facility] 11-27-2022 22:00-0500 Systolic blood pressure 154 mm[Hg] Fredi KARASIK [facility] 11-27-2022 21:50-0500 Blood Pressure Location Fredi KARASIK [facility] 11-27-2022 21:50-0500 Diastolic blood pressure 90 mm[Hg] Fredi KARASIK [facility] 11-27-2022 21:50-0500 Heart rate 133 /min Fredi KARASIK [facility] 11-27-2022 21:50-0500 Hourly Rounding Fredi KARASIK [facility] 11-27-2022 21:50-0500 Mean blood pressure 113 mm[Hg] Fredi KARASIK [facility] 11-27-2022 21:50-0500 Respiratory rate 18 /min Fredi KARASIK [facility] 11-27-2022 21:50-0500 SaO2% (BldA) [Mass fraction] 98 % Fredi KARASIK [facility] 11-27-2022 21:50-0500 Systolic blood pressure 159 mm[Hg] Fredi KARASIK [facility] 11-27-2022 21:37-0500 Blood Pressure Location Fredi KARASIK [facility] 11-27-2022 21:37-0500 Diastolic blood pressure 88 mm[Hg] Fredi KARASIK [facility] 11-27-2022 21:37-0500 Heart rate 131 /min Fredi SCHUMACHERASIK [facility] 11-27-2022 21:37-0500 Mean blood pressure 111 mm[Hg] Fredi SCHUMACHERASIK [facility] 11-27-2022 21:37-0500 SaO2% (BldA) [Mass fraction] 97 % Fredi SCHUMACHERASIK [facility] 11-27-2022 21:37-0500 Systolic blood pressure 158 mm[Hg] Fredi SCHUMACHERASIK [facility] 11-27-2022 21:30-0500 Blood Pressure Location Fredi SCHUMACHERASIK [facility] 11-27-2022 21:30-0500 Body temperature 98.6 [degF] Fredi SCHUMACHERASIK [facility] 11-27-2022 19:00-0500 Body temperature 98.24 [degF] Fredi KARASIK [facility] 11-27-2022 17:15-0500 Body temperature 98.06 [degF] Fredi KARASIK [facility] 11-27-2022 14:02-0500 Heart rate 99 /min Fredi SCHUMACHERASIK [facility] 07-14-2022 07:00-0400 Body temperature 98.6 [degF] Kaylinn Dokken [facility] 07-14-2022 07:00-0400 Diastolic blood pressure 67 mm[Hg] Kaylinn Dokken [facility] 07-14-2022 07:00-0400 Heart rate 80 /min Kaylinn Dokken [facility] 07-14-2022 07:00-0400 Mean blood pressure 83 mm[Hg] Kaylinn Dokken [facility] 07-14-2022 07:00-0400 Respiratory rate 17 /min Kaylinn Dokken [facility] 07-14-2022 07:00-0400 Systolic blood pressure 115 mm[Hg] Kaylinn Dokken [facility] 07-14-2022 06:07-0400 Body temperature 98.24 [degF] Kaylinn Dokken [facility] 07-14-2022 06:07-0400 Diastolic blood pressure 79 mm[Hg] Kaylinn Dokken [facility] 07-14-2022 06:07-0400 Heart rate 90 /min Kaylinn Dokken [facility] 07-14-2022 06:07-0400 Respiratory rate 18 /min Kaylinn Dokken [facility] 07-14-2022 06:07-0400 SaO2% (BldA) [Mass fraction] 100 % Kaylinn Dokken [facility] 07-14-2022 06:07-0400 Systolic blood pressure 134 mm[Hg] Kaylinn Dokken [facility] 07-14-2022 05:30-0400 Hourly Rounding Nathan KIESHA [facility] Comment on above: Result Comment: Pt discharged per physic santiago orders. Pt ambulates off unit with a steady gait 07-14-2022 05:15-0400 Diastolic blood pressure 77 mm[Hg] Nathan KIESHA [facility] 07-14-2022 05:15-0400 Heart rate 105 /min Nathan KIESHA [facility] 07-14-2022 05:15-0400 Hourly Rounding Nathan KIESHA [facility] 07-14-2022 05:15-0400 Mean blood pressure 89 mm[Hg] Nathan KIESHA [facility] 07-14-2022 05:15-0400 Respiratory rate 18 /min Nathan KIESHA [facility] 07-14-2022 05:15-0400 Systolic blood pressure 113 mm[Hg] Nathan KIESHA [facility] 04-18-2022 11:00-0400 Body height 160.02 cm Domo Hodges Other [employer] [facility] [employer] Other 04-18-2022 11:00-0400 Body mass index (BMI) [Ratio] 23.03 kg/m2 Doom Hodges Other [employer] Other 04-18-2022 11:00-0400 Body weight 58.97 kg Domo Hodges Other [employer] Other 02-09-2022 11:41-0400 Body height 157.48 cm Charlene Billow DO Work Phone: RX-[id number]-Ulrmvt 320 Work Phone: 02-09-2022 11:41-0400 Body mass index (BMI) [Ratio] 24.51 kg/m2 Charlene Billow DO Work Phone: SW-BPJIH-Ahpjam 320 Work Phone: 02-09-2022 11:41-0400 Body surface area Derived from formula 1.61 m2 Charlene Billow DO Work Phone: UX-AJPIT-Jgcgmq 320 Work Phone: 02-09-2022 11:41-0400 Body weight 60.78 kg Charlene Billow DO Work Phone: FL-TGOLP-Unvtkt 320 Work Phone: 02-09-2022 11:41-0400 Diastolic blood pressure 87 mm[Hg] Charlene Billow DO Work Phone: JJ-KPRYP-Aokemc 320 Work Phone: 02-09-2022 11:41-0400 Systolic blood pressure 136 mm[Hg] Chralene Billow DO Work Phone: PH-BDQJF-Owicne 320 Work Phone: 02-09-2022 11:41-0400 0 1 Charlene Billow DO Work Phone: XB-LKFDD-Ngnlww 320 Work Phone: Comment on above: GRAV [employer] 04-19-2021 14:53-0400 Body height 157.48 cm Charlene Billow DO Work Phone: SI-TGWEW-Uquxir 320 Work Phone: 04-19-2021 14:53-0400 Body mass index (BMI) [Ratio] 21.77 kg/m2 Charlene Billow DO Work Phone: JB-OXUMZ-Clwghn 320 Work Phone: 04-19-2021 14:53-0400 Body surface area Derived from formula 1.53 m2 Charlene Billow DO Work Phone: DO-EWNEG-Yrcwfp 320 Work Phone: 04-19-2021 14:53-0400 Body weight 53.98 kg Charlene Billow DO Work Phone: KH-ALDEZ-Xvsfws 320 Work Phone: 04-19-2021 14:53-0400 Diastolic blood pressure 83 mm[Hg] Charlene Billow DO Work Phone: WD-LYDRT-Wzemzy 320 Work Phone: 04-19-2021 14:53-0400 Heart rate 108 /min Charlene Wilderow DO Work Phone: CL-QWDMC-Uyvqkz 320 Work Phone: 04-19-2021 14:53-0400 Systolic blood pressure 142 mm[Hg] Charlene Wilderow DO Work Phone: [id number] Work Phone: 04-19-2021 14:53-0400 0 1 Charlene Rodriguez DO Work Phone: [id number] Work Phone: Comment on above: GRAV PARA [employer] Encounters Encounter Date Encounter Type Care Provider Facility Start: 09-01-2025 End: 09-01-2025 Telephone encounter Cha Harris RN Maternal- Medic ine at [facility] Start: 08-29-2025 End: 08-29-2025 Clinisync Result Encounter Marbella Keane NP Work Phone: [facility] External [facility] Unsolicited Start: 08-29-2025 End: 08-29-2025 Clinisync Result Encounter Marbella Keane NP Work Phone: [facility] External Department Unsolicited Start: 08-27-2025 End: 08-27-2025 ambulatory MARBELLA KEANE Not Available Start: 08-27-2025 End: 08-27-2025 flow sheet Marbella Keane NP Work Phone: [facility] [place] Comment on above: 26 weeks gestation o f (HHS-HCC); Second trimester (HHS-HCC); induced hypertension, antepartum (HHS-HCC); Gestational diabetes mellitus (GDM) in second trimester, gestational diabetes method of control unspecified ([facility]) Start: 08-27-2025 End: 08-27-2025 Bamboo flowsheet Marbella Keane NP Work Phone: [facility] Start: 08-27-2025 End: 08-27-2025 Bamboo flowsheet Marbella Keane SHEET COMBINING OPERATOR Work Phone: [facility] Start: 08-27-2025 End: 08-27-2025 Clinisync Result Encounter Marbella Keane SHEET COMBINING OPERATOR Work Phone: [facility] External Department Unsolicited Start: 08-25-2025 End: 08-26-2025 Clinisync Result Encounter Generic External Data Provider [facility] External Department Unsolicited Start: 08-25-2025 End: 08-26-2025 Clinisync Result Encounter Generic External Data Provider [facility] External [facility] Unsolicited Start: 08-24-2025 End: 08-24-2025 ambulatory Teena Sarmiento RN Work Phone: Maternal- Medicine at [facility] Comment on above: Gestational diabetes mellitus (GDM) in second trimester, gestational diabetes method of control unspecified Start: 08-21-2025 End: 08-21-2025 Chart abstracting Scanning Provider External Maternal- Medicine at [facility] Start: 08-18-2025 End: 08-19-2025 Chart abstracting Quynh Clements MD Work Phone: Maternal- Medicine at [facility] Start: 08-15-2025 End: 08-15-2025 ambulatory MARBELLA KEANE Facility:[facility] Start: 08-12-2025 End: 08-12-2025 flow sheet Nathan Kiesha DO Work Phone: [facility] [place] Comment on above: 24 weeks gestation o f ([facility]); Second trimester ([facility]); Elevated glucose tolerance test Start: 08-12-2025 End: 08-12-2025 ambulatory NATHAN KIESHA Not Available Start: 08-12-2025 End: 08-12-2025 ambulatory Nathan POP Facility:[facility] Start: 08-01-2025 End: 08-01-2025 ambulatory Yomaira BELTRAN Facility:[facility] Start: 07-30-2025 End: 07-30-2025 Patient encounter status Nay Beltran DO Work Phone: [facility] Work Phone: Start: 07-30-2025 End: 07-30-2025 Periodic preventive med est patient 18-39 yrs Nay Beltran DO Work Phone: [facility] Comment on above: Wellness examination (Primary Dx); Hypertension, unspecified type ; Lipid screening Start: 07-30-2025 End: 07-30-2025 ambulatory NAY BELTRAN Not Available Start: 07-30-2025 End: 07-30-2025 Bamboo flowsheet Nay Beltran DO Work Phone: [facility] Start: 07-30-2025 End: 07-30-2025 Bamboo flowsheet Nay Beltran DO Work Phone: [facility] Start: 07-15-2025 End: 07-15-2025 flow sheet Nathan Kiesha DO Work Phone: [facility] [place] Comment on above: 20 weeks gestation o f ([facility]); Second trimester ([facility]); Diabetes mellitus screening Start: 07-15-2025 [...] chronicity, unspecified location (Primary Dx); Second trimester ([facility]); 17 weeks gestation of ([facility]); Screening, , for anatomic survey ([facility]) Start: 06-22-2025 End: 06-22-2025 ambulatory NATHAN KIESHA Not Available Start: 06-22-2025 End: 06-22-2025 Bamboo flowsheet Nathan Kiesha DO Work Phone: [facility] Start: 06-22-2025 End: 06-24-2025 Bamboo flowsheet Nathan Kiesha DO Work Phone: [facility] Start: 06-22-2025 End: 06-24-2025 External Result Encounter Nathan Kiesha DO Work Phone: [facility] External Department Unsolicited Start: 05-25-2025 End: 05-25-2025 ambulatory NATHAN KIESHA Not Available Start: 05-25-2025 End: 05-25-2025 flow sheet Nathan Kiesha DO Work Phone: [facility] Comment on above: Nonintractable episo dic headache, unspecified headache type (Primary Dx); Second trimester ([facility]); 13 weeks gestation of ([facility]) Start: 05-25-2025 End: 05-25-2025 Bamboo flowsheet Nathna Kiesha DO Work Phone: [facility] Start: 05-25-2025 End: 05-25-2025 Bamboo flowsheet Nathan Kiesha DO Work Phone: [facility] Start: 05-04-2025 End: 05-04-2025 Clinisync Result Encounter Nathan Kiesha DO Work Phone: [facility] Unsolicited Start: 05-04-2025 End: 05-04-2025 Clinisync Result Encounter Nathan Kiesha DO Work Phone: [facility] Unsolicited Start: 05-01-2025 End: 05-01-2025 Clinisync Result Encounter Nathna Kiesha DO Work Phone: [facility] Unsolicited Start: 05-01-2025 End: 05-01-2025 Clinisync Result Encounter Nathan Kiesha DO Work Phone: [facility] External [facility] Unsolicited Start: 05-01-2025 End: 05-01-2025 ambulatory NAY BELTRAN Not Available Start: 05-01-2025 End: 05-01-2025 Office outpatient visit 5 minutes [facility] Kiesha Nurse [facility] Comment on above: GA: 9w6d Start: 03-13-2025 End: 03-13-2025 ambulatory Nathan R KIESHA Facility:[facility] Start: 03-13-2025 End: 03-13-2025 Patient encounter procedure Nathan R KIESHA [facility] Start: 02-02-2025 End: 02-02-2025 Patient encounter procedure Cruz Rodríguez MD Work Phone: [facility] [place] Work Phone: Start: 02-02-2025 End: 02-02-2025 ambulatory Cruz Rodríguez MD Work Phone: [facility] Work Phone: Start: 01-22-2025 End: 01-22-2025 ambulatory Nathan R KIESHA Facility:[facility] Start: 01-22-2025 End: 01-22-2025 Patient encounter procedure Nathan R KIESHA [facility] Start: 01-19-2025 End: 01-19-2025 Office outpatient [...] woman exam with routine gynecological exam Start: 07-22-2024 End: 07-22-2024 Bamboo flowsheet Nathan Kiesha DO Work Phone: [facility] Start: 07-22-2024 End: 07-22-2024 Bamboo flowsheet Nathan Kiesha DO Work Phone: [facility] Start: 07-22-2024 End: 07-22-2024 Office outpatient visit 15 minutes Nathan Kiesha DO Work Phone: [facility] Comment on above: Dysmenorrhea, unspec ified Start: 04-29-2024 Telephone encounter Charlene Bill ow DO Work Phone: [facility] Start: 04-25-2024 Telephone encounter Charlene Bill ow DO Work Phone: [facility] Comment on above: Surgery Cancelled Start: 01-10-2024 End: 01-10-2024 Office outpatient visit 15 minutes Nathan Pop DO Work Phone: [facility] Comment on above: Menorrhagia with reg ular cycle; Pelvic pain in female; Uses control Start: 01-02-2024 Refill Charlene Billow D O Work Phone: [facility] Comment on above: Refill Request Start: 12-31-2023 ambulatory Charlene Billow D O Work Phone: Obstetrics/Gynecology Comment on above: pain Start: 12-10-2023 End: 12-10-2023 ambulatory CHARLENE BILLOW Facility:[facility] Start: 10-22-2023 ambulatory Charlene Billow D O Work Phone: [facility] Start: 10-22-2023 Patient encounter procedure Charlene Billow DO Work Phone: Obstetrics/Gynecology Comment on above: office visit Start: 09-12-2023 End: 09-12-2023 Emergency department patient visit [facility] Start: 08-30-2023 Manual pelvic examination Charlene Billow DO Work Phone: Obstetrics/Gynecology Comment on above: Pelvic pain in femal e (Primary Dx) Start: 08-26-2023 ambulatory Charlene Billow D O Work Phone: Obstetrics/Gynecology Comment on above: painful periods Start: 08-24-2023 End: 08-24-2023 Manual pelvic examination Srinivasa Downs APRN.PAINT MIXER HAND Work Phone: Gynecology Comment on above: High-tone pelvic stella or dysfunction (Primary Dx); Chronic pelvic pain in female Start: 08-24-2023 End: 08-24-2023 Telemedicine consultation with patient Srinivasa Downs JAMI.PAINT MIXER HAND Work Phone: [facility] Start: 08-24-2023 End: 08-24-2023 ambulatory SRINIVASA REAPER Facility:[facility] Start: 08-13-2023 ambulatory Charlene Rodriguez D O Work Phone: Obstetrics/Gynecology Comment on above: painful period Start: 08-02-2023 Telephone encounter Charlene Wilder ow DO Work Phone: Gynecology Comment on above: Insurance Authorizat ion (Orilissa) Start: 07-16-2023 End: 07-16-2023 ambulatory CHARLENE BILLBARBARA Facility:[facility] Start: 06-12-2023 End: 06-12-2023 ambulatory CHARLENE BILLBARBARA Facility:[facility] Start: 06-12-2023 End: 06-12-2023 Subsequent hospital visit by physician [facility] Suki (I-Stat/1.5t) Radiology Comment on above: Pelvic and perineal pain [R10.2] Start: 05-17-2023 End: 05-17-2023 Manual pelvic examination Charlene Rodriguez DO Work Phone: Obstetrics/Gynecology Comment on above: Endometriosis (Prima ry Dx); Pelvic and perineal pain Start: 05-17-2023 End: 05-17-2023 Telemedicine consultation with patient Charlene Rodriguez DO Work Phone: [facility] Start: 05-17-2023 End: 05-17-2023 [facility] Start: 05-11-2023 Telephone encounter Charlene Bill ow DO Work Phone: Gynecology Comment on above: Vaginal Bleeding Start: 05-01-2023 End: 05-01-2023 ambulatory CRUZ SAHIL RODRÍGUEZ Facility:[facility] Start: 05-01-2023 End: 05-01-2023 Patient encounter procedure Srinivasa Reaper OPERATOR/ASSISTANT FOREMAN.PAINT MIXER HAND Work Phone: Gynecology Comment on above: Chronic pelvic pain in female (Primary Dx); Constipation, unspecified constipation type; High-tone pelvic floor dysfunction; Diastasis of rectus abdominis; Dysmenorrhea; Other specified dyspareunia Start: 04-22-2023 ambulatory Charlene Valladares Work Phone: Obstetrics/Gynecology Comment on above: painful Start: 01-31-2023 End: 01-31-2023 Emergency department patient visit [facility] Start: 12-30-2022 End: 12-30-2022 Patient encounter procedure [facility] Start: 12-05-2022 End: 12-05-2022 ambulatory [facility] Start: 12-05-2022 End: 12-05-2022 Office outpatient visit 15 minutes [facility] Work Phone: [facility] Comment on above: Pre-eclampsia, sever e, delivered (Primary Dx) Start: 11-28-2022 End: 12-02-2022 Evaluation and management of inpatient [facility] Start: 11-28-2022 End: 12-02-2022 Evaluation and management of inpatient Ritu Ryder Work Phone: [facility] Comment on above: Preeclampsia, severe , third trimester (Primary Dx) Start: 11-28-2022 End: 12-27-2022 Pre-admission assessment Fredi DORSEY [facility] Start: 11-27-2022 End: 11-27-2022 OB Triage Fredi DORSEY [facility] Start: 07-14-2022 End: 07-14-2022 Emergency department patient visit Kumar Villagomez [facility] Start: 07-14-2022 End: 07-14-2022 OB Triage Nathan POP [facility] Start: 04-25-2022 End: 04-25-2022 Patient encounter procedure DOMO HODGES [facility] Start: 04-18-2022 End: 04-18-2022 ambulatory Domo Hodges Other [facility] [employer] Other Start: 04-18-2022 Patient encounter procedure Domo Genotrisha [facility] Gastro[facility]ology Start: 02-09-2022 Office outpatient vi sit 15 minutes Charlene Rodriguez DO Work Phone: [id number] Work Phone: Start: 09-29-2021 End: 10-02-2021 ambulatory [facility]an[facility] Start: 09-29-2021 End: 10-02-2021 ambulatory OP[facility] Castan[facility] Start: 04-19-2021 AUDIT Charlene Valladares Work Phone: [id number] 320 Work Phone: Start: 04-19-2021 PLVCPOBGYN, Provider : Charlene Rodriguez, Status: Pen, Time: 2:45 PM Nicholas Chau MD Work Phone: [id number] Work Phone: Start: 04-18-2021 Chart Update Nicholas Keating Work Phone: [id number] Work Phone: Procedures Date Procedure Procedure Detail Performing Clinician Start: 08-29-2025 [facility] TOTAL PROTEIN 24 HOUR URINE Generic External Data Provider Start: 08-27-2025 US OB BPP W NON-STRESS Marbella Keane SHEET COMBINING OPERATOR Work Phone: Start: 08-27-2025 [facility] URINE T PROTEIN CREAT RATIO Generic External Data Provider Start: 08-27-2025 ALL CBC WITH AUTO DIFF Generic External Data Provider Start: 08-27-2025 Urnls dip stick/tabl et rgnt non-auto w/o micrscp Marbella Keane SHEET COMBINING OPERATOR Work Phone: Start: 08-25-2025 Bacteria identified in [...] System Ref Prov Start: 05-04-2025 BOX TEST Nathanpearl Cabrera o DO Work Phone: Start: 05-01-2025 Urnls dip stick/tabl et rgnt non-auto w/o micrscp Nathanpearl Pop DO Work Phone: Start: 05-01-2025 US OB TRANSVAGINAL Core y Kiesha DO Work Phone: Start: 08-18-2024 IGP,APTIMA HPV,AGE GDLN Nathanpearl Pop DO Work Phone: Start: 08-18-2024 Microscopic observat ion [Identifier] in Cervix by Cyto stain Nathan Pop DO Work Phone: Start: 08-15-2023 Cytp cerv/vag auto t hin layer prep mnl screen Nathan Pop DO Work Phone: Start: 06-12-2023 Mri pelvis w/o & w/c ontrast material Charlene Rodriguez DO Work Phone: Start: 11-29-2022 Blood count platelet automated Jimmie Kaur APRN - SKILLED NURSING FACILITY COUNSELOR Work Phone: Start: 11-28-2022 Blood count platelet [...] Start: 05-16-2021 Antibody hiv-1&hiv-2 single result Megadyne [id number] Start: 05-16-2021 Iaad ia hepatitis b surface antigen Denisdyne [id number] Start: 02-28-2021 Cystoscopy DOMO BROWNE Start: 08-30-2020 End: 08-30-2020 Antibody screen Comment on above: Performed By: #### T +S #### [facility] [address] [place] [address] Order Comment: TEST TYPE + SCREEN WAS CANCELLED, 08/30/2020 13:37 JOP. Performed By: #### T +S #### [facility] [address] [place] [address] Start: 08-07-2018 RIGHT SHOULDER OPEN DISTAL CLAVICLE EXCISION 1 DOMO HODGES Comment on above: RIGHT SHOULDER OPEN DISTAL CLAVICLE EXCISION RIGHT SHOULDER OPEN DISTAL CLAVICLE EXCISION Appendectomy DOMO HODGES Betamethasone (substance) Gr egory KARASIK Comment on above: Dose #1: 11/27/22 Colonoscopy DOMO HODGES Endoscope, device (p hysical object) [facility] Nicholas Chau MD Work Phone: Plan of Treatment Date Care Activity Detail Author Start: 2045 Zoster Vaccines (1 of 2) Zoste r Vaccines (1 of 2) [facility] Start: 09-03-2028 Screening for malign ant neoplasm of cervix [facility] Start: 08-18-2027 Screening for malign ant neoplasm of cervix Pap Smear [facility] Start: 08-24-2026 Adult BMI Screening Adult BMI Screen [facility] Start: 09-10-2025 End: 09-10-2025 Telemedicine consultation with patient 09/10/2025 11:00 AM EDT Telemedicine [facility] [place] [address] [facility] [address] [place] [phone] Quynh Clements MD [address], [address] [place] [address] [facility] [place] Start: 09-10-2025 End: 09-10-2025 Patient encounter procedure 09/10/2025 9:45 AM EDT Appointment [facility] [place] [address] [place] [phone] [facility] [place] Start: 09-07-2025 End: 09-07-2025 Patient encounter procedure [facility] Start: 09-04-2025 End: 09-04-2025 Patient encounter procedure 09/04/2025 3:00 PM EDT Office Visit Maternal- Medicine at [facility] [address] [place] [phone] Jean Carlos Pina MD [address], [address] [place] [address] Maternal- Medicine at [facility] Start: 09-03-2025 End: 09-03-2025 Patient encounter procedure 09/03/2025 3:50 PM EDT Routine [facility] [place] [facility] [address] [place] [address] Marbella Keane, SHEET COMBINING OPERATOR [address] [place] [address] [facility] Start: 08-27-2025 End: 08-27-2025 Patient encounter procedure 08/27/2025 3:20 PM EDT Routine [facility] [address] [place] [address] Marbella Keane, SHEET COMBINING OPERATOR [address] [place] [address] [facility] YOUNGRonen Start: 08-27-2025 End: 08-27-2026 Alanine aminotransferase [Enzymatic activity/volume] in Serum or Plasma ALT Lab Routine induced hypertension, antepartum ([facility]HS-HCC) Expected: 08/27/2025 (Approximate), Expires: 08/27/2026 [facility] Comment on above: Expected: 08/27/2025 (Approximate), Expires: 08/27/2026 Start: 08-27-2025 End: 08-27-2026 Aspartate aminotransferase [Enzymatic activity/volume] in Serum or Plasma AST Lab Routine induced hypertension, antepartum (HHS-HCC) Expected: 08/27/2025 (Approximate), Expires: 08/27/2026 [facility] Comment on above: Expected: 08/27/2025 (Approximate), Expires: 08/27/2026 Start: 08-27-2025 End: 08-27-2026 CBC W Auto Differential panel - Blood CBC and differential Lab Routine induced hypertension, antepartum (HHS-HCC) Expected: 08/27/2025 (Approximate), Expires: 08/27/2026 [facility] Comment on above: Expected: 08/27/2025 (Approximate), Expires: 08/27/2026 Start: 08-27-2025 End: 08-27-2026 Creatinine [Mass/volume] in Serum or Plasma Creatinine Lab Routine induced hypertension, antepartum ([facility]HS-HCC) Expected: 08/27/2025 (Approximate), Expires: 08/27/2026 [facility] Work Phone: Comment on above: Expected: 08/27/2025 (Approximate), Expires: 08/27/2026 Start: 08-27-2025 End: 08-27-2026 Lactate dehydrogenase [Enzymatic activity/volume] in Serum or Plasma by Lactate to pyruvate reaction Lactate dehydrogenase Lab Routine induced hypertension, antepartum (HHS-HCC) Expected: 08/27/2025, Expires: 08/27/2026 [facility] Comment on above: Expected: 08/27/2025 , Expires: 08/27/2026 Start: 08-27-2025 End: 08-27-2026 Protein, urine, 24 hour Protein, urine, 24 hour Lab Routine induced hypertension, antepartum (HHS-HCC) Expected: 08/27/2025 (Approximate), Expires: 08/27/2026 [facility] Comment on above: Expected: 08/27/2025 (Approximate), Expires: 08/27/2026 Start: 08-27-2025 End: 08-27-2026 Pt and ptt Pt and ptt Lab Routine induced hypertension, antepartum (HHS-HCC) Expected: 08/27/2025, Expires: 08/27/2026 [facility] Comment on above: Expected: 08/27/2025 , Expires: 08/27/2026 Start: 08-27-2025 End: 08-27-2026 Urate [Mass/volume] in Serum or Plasma Uric acid Lab Routine induced hypertension, antepartum (HHS-HCC) Expected: 08/27/2025 (Approximate), Expires: 08/27/2026 [facility] Comment on above: Expected: 08/27/2025 (Approximate), Expires: 08/27/2026 Start: 08-27-2025 End: 08-27-2026 Urea nitrogen [Mass/volume] in Serum or Plasma BUN Lab Routine induced hypertension, antepartum (HHS-HCC) Expected: 08/27/2025, Expires: 08/27/2026 [facility] Comment on above: Expected: 08/27/2025 , Expires: 08/27/2026 Start: 08-27-2025 End: 02-25-2026 US biophysical profile w non stress test US biophysical profile w non stress test Imaging Routine induced hypertension, antepartum (HHS-HCC) Gestational diabetes mellitus (GDM) in second trimester, gestational diabetes method of control unspecified (HHS-HCC) Expected: 08/27/2025 (Approximate), Expires: 02/25/2026 [facility] Comment on above: Expected: 08/27/2025 (Approximate), Expires: 02/25/2026 Start: 08-24-2025 End: 08-24-2025 ambulatory 08/24/2025 1:30 PM EDT Support Visit Maternal- Medicine at [facility] [address] [place] [phone] Teena Sarmiento, RN [address], [address] [place] [address] Kerline Augustin, RD [address], [address] [place] [address] Maternal- Medicine at [facility] Start: 08-24-2025 End: 08-24-2025 Patient encounter procedure 08/24/2025 11:00 AM EDT Office Visit [facility] [address] [place] [address] Nathan Pop, DO [address] [place], [place] [phone] [facility] Start: 08-12-2025 End: 08-12-2025 Patient encounter procedure 08/12/2025 2:40 PM EDT Routine [facility] [address] [place] [address] Nathan Pop, DO [address] [place], [place] [phone] [facility] [place] [facility] Start: 08-12-2025 End: 08-12-2026 Measurement of glucose 3 hours after glucose challenge for glucose tolerance test Glucose tolerance, 3 hours Lab Routine Elevated glucose tolerance test Expected: 08/12/2025 (Approximate), Expires: 08/12/2026 [facility] Work Phone: Comment on above: Expected: 08/12/2025 (Approximate), Expires: 08/12/2026 Start: 08-12-2025 End: 08-12-2025 Professional / ancillary services management 08/12/2025 2:00 PM EDT Ancillary Procedure [facility] [address] [place] [address] [facility] [place] [facility] Start: 07-31-2025 End: 08-29-2025 CBC W Auto Differential panel - Blood CBC and differential Lab Routine Hypertension, unspecified type Wellness examination Expected: 07/31/2025 (Approximate), Expires: 08/29/2025 [facility] Work Phone: Comment on above: Expected: 07/31/2025 (Approximate), Expires: 08/29/2025 Start: 07-31-2025 End: 08-29-2025 Comprehensive metabolic 2000 panel - Serum or Plasma Comprehensive metabolic panel Lab Routine Hypertension, unspecified type Wellness examination Expected: 07/31/2025 (Approximate), Expires: 08/29/2025 [facility] Comment on above: Expected: 07/31/2025 (Approximate), Expires: 08/29/2025 Start: 07-31-2025 End: 08-29-2025 Lipid 1996 panel - Serum or Plasma Lipid panel Lab Routine Wellness examination Lipid screening Expected: 07/31/2025 (Approximate), Expires: 08/29/2025 [facility] Comment on above: Expected: 07/31/2025 (Approximate), Expires: 08/29/2025 Start: 07-30-2025 End: 07-30-2025 Patient encounter procedure 07/30/2025 3:40 PM EDT Office Visit [facility] [address] [place] [phone] Nay Beltran DO [address] [place] [address] Arrived [facility] Comment on above: Arrived Start: 07-27-2025 Influenza vaccination N [facility] Start: 07-15-2025 End: 07-15-2025 Patient encounter procedure 07/15/2025 3:30 PM EDT Routine [facility] [place] [address] [place] [phone] Nathan Pop DO [address] [facility] [place] [address] [facility] [place] [facility] Start: 07-15-2025 End: 07-15-2025 Professional / ancillary services management 07/15/2025 2:30 PM EDT Ancillary Procedure [facility] [place] [address] [facility] [place] [address] [facility] [place] [facility] Start: 07-15-2025 End: 07-15-2026 CBC panel - Blood by Automated count CBC Lab Routine Diabetes mellitus screening Expected: 07/15/2025 (Approximate), Expires: 07/15/2026 [facility] Work Phone: Comment on above: Expected: 07/15/2025 (Approximate), Expires: 07/15/2026 Start: 07-15-2025 End: 07-15-2026 Measurement of glucose 1 hour after glucose challenge for glucose tolerance test Glucose tolerance, 1 hour Lab Routine Diabetes mellitus screening Expected: 07/15/2025 (Approximate), Expires: 07/15/2026 [facility] Comment on above: Expected: 07/15/2025 (Approximate), Expires: 07/15/2026 Start: 06-22-2025 End: 06-22-2025 Patient encounter procedure 06/22/2025 2:10 PM EDT Routine [facility] [place] [address] [place] [id number] Nathan Pop DO [address] [place] [address] Arrived LANETTE MOODY Comment on above: Arrived Start: 06-22-2025 End: 12-23-2025 Alpha fetoprotein, maternal Alpha fetoprotein, maternal Lab Routine Second trimester ([facility]) 17 weeks gestation of ([facility]) Expected: 06/22/2025 (Approximate), Expires: 12/23/2025 [facility] Comment on above: Expected: 06/22/2025 (Approximate), Expires: 12/23/2025 Start: 06-22-2025 End: 09-22-2025 US for US OB 14+ weeks anatomy scan Imaging Routine Screening, , for anatomic survey ([facility]) Expected: 06/22/2025, Expires: 09/22/2025 [facility] Work Phone: Comment on above: Expected: 06/22/2025 , Expires: 09/22/2025 Start: 05-25-2025 End: 05-25-2025 Patient encounter procedure 05/25/2025 2:40 PM EDT Routine [facility] BCP OB [address] [place] [address] Nathan Pop, DO [address] [place] [address] [facility] Start: 05-01-2025 End: 05-01-2026 ABO/Rh ABO/Rh Lab Routine Missed menses , unspecified gestational age Expected: 05/01/2025 (Approximate), Expires: 05/01/2026 [facility] Comment on above: Expected: 05/01/2025 (Approximate), Expires: 05/01/2026 Start: 05-01-2025 End: 05-01-2026 Blood type and Indirect antibody screen panel - Blood Type and screen Lab Routine Missed menses , unspecified gestational age Expected: 05/01/2025 (Approximate), Expires: 05/01/2026 [facility] Work Phone: Comment on above: Expected: 05/01/2025 (Approximate), Expires: 05/01/2026 Start: 05-01-2025 End: 05-01-2026 Drugs of abuse panel - Urine by Screen method Rapid drug screen, urine Lab Routine , unspecified gestational age Encounter for supervision of normal first in first trimester Expected: 05/01/2025 (Approximate), Expires: 05/01/2026 [facility] Comment on above: Expected: 05/01/2025 [...] above: Arrived Start: 07-27-2024 Influenza vaccination [facility] Start: 07-22-2024 End: 07-22-2025 US for US PELVIS-TRANSVAG IF INDICATED Imaging Routine Dysmenorrhea, unspecified Expected: 07/22/2024 (Approximate), Expires: 07/22/2025 [facility] Work Phone: Comment on above: Expected: 07/22/2024 (Approximate), Expires: 07/22/2025 Start: 06-23-2024 End: 06-23-2024 Patient encounter procedure 06/23/2024 10:30 AM EDT Office Visit Obstetrics/Gynecology [address] [address] Charlene Rodriguez DO [address] [place] [address] 2 WEEK POST OP Obstetrics/Gynecolo gy Comment on above: 2 WEEK POST OP Start: 05-27-2024 End: 05-27-2024 Admission to same day surgery center 05/27/2024 7:30 AM EDT - 05/27/2024 9:30 AM EDT Surgery [facility] Surgery [address] [place] [id number] Charlene Rodriguez DO [address] [place] [address] LAPAROSCOPY FULGURATION OR EXCISION OF LESIONS OF THE OVARY PELVIC VISCERA OR PERITONEAL SURFACE BY ANY METHOD [facility] Surgery Comment on above: LAPAROSCOPY FULGURAT ION OR EXCISION OF LESIONS OF THE OVARY PELVIC VISCERA OR PERITONEAL SURFACE BY ANY METHOD Start: 05-27-2024 End: 07-02-2024 Laps fulg/exc ovary viscera/peritoneal surface LAPAROSCOPY FULGURATION OR EXCISION OF LESIONS OF THE OVARY PELVIC VISCERA OR PERITONEAL SURFACE BY ANY METHOD Endometriosis 05/27/2024 7:30 AM EDT ME OR Start: 05-27-2024 Subsequent hospital visit by physician 05/27/2024 7:30 AM EDT Hospital Encounter [facility] Surgery [address] [place] [address] Charlene Rodriguez DO [address] [place] [address] Endometriosis [N80.9] [facility] Comment on above: Endometriosis [N80.9 ] Start: 05-25-2024 Influenza vaccination Influenza Vacc ine (#1) [facility] Comment on above: Postponed from 07/27 (Patient Refused) Start: 05-20-2024 End: 05-20-2024 ambulatory 05/20/2024 10:[address] [facility] DIRECTOR OF VOCATIONAL TRAINING UROL [facility] [address] [address] [place] Deputy Nurse [address] [address] RN TEACHING DIRECTOR OF VOCATIONAL TRAINING [facility] Comment on above: RN TEACHING Start: 04-22-2024 End: 04-22-2024 Patient encounter procedure 04/22/2024 9:00 AM EDT Office Visit [facility] [address] [place] [id number] Cruz Rodríguez MD [address] [place] [address] [facility] Start: 2024 DTaP,Tdap and Td Vac cines (7 - Td or Tdap) DTaP,Tdap and Td Vaccines (7 - Td or Tdap) [facility] Start: 2024 DTaP/Tdap/Td Vaccine s (7 - Td or Tdap) DTaP/Tdap/Td Vaccines (7 - Td or Tdap) [facility] Start: 2024 Urine microalbumin profile DTa P,Tdap,Td Vaccine (7 - Td or Tdap) [facility] Start: 01-30-2024 End: 01-30-2024 Patient encounter procedure 01/30/2024 11:10 AM EST Consult [facility] OB [address] [place] [id number] Nathan Pop, DO [address] [place], [place] [id number] [facility] OB Start: 01-15-2024 End: 01-15-2024 Professional / ancillary services management 01/15/2024 8:00 AM EST Ancillary Procedure [facility] OB [address] [place] [address] [facility] Start: 01-10-2024 End: 01-10-2025 US for US PELVIS-TRANSVAG IF INDICATED Imaging Routine Pelvic pain in female Expected: 01/10/2024 (Approximate), Expires: 01/10/2025 [facility] Work Phone: Comment on above: Expected: 01/10/2024 (Approximate), Expires: 01/10/2025 Start: 11-26-2023 Behavioral Health Screening Behavioral Health Screening [facility] Start: 11-26-2023 Depression Assessment Depression Ass [facility] Start: 07-27-2023 Covid-19 Vaccine ( season) Covid-19 Vaccine ( season) [facility] Start: 07-27-2023 Influenza vaccination [facility] Start: 11-26-2022 DEPRESSION ASSESSMENT DEPRESSION ASS ESSMENT [facility] Start: 07-27-2022 Influenza vaccination Influenza Vacc ine (#1) [facility] Start: 05-23-2022 FUV, Provider: Charlene Rodriguez, Status: Pen, Time: 1:30 PM FUV, Provider: Charlene Rodriguez, Status: Pen, Time: 1:30 PM [id number] Work Phone: Start: 08-16-2021 FUV, Provider: Charlene Rodriguez, Status: Pen, Time: 11:15 AM FUV, Provider: Charlene Rodriguez, Status: Pen, Time: 11:15 AM Shahana Villa Work Phone: Start: 2016 PAP TESTING PAP TESTING [facility] Start: 2016 Screening for malign ant neoplasm of cervix [facility] Start: 2014 DTaP,Tdap and Td Vac cines (1 - Tdap) DTaP,Tdap and Td Vaccines (1 - Tdap) [facility] Start: 2014 DTaP/Tdap/Td Vaccine s (1 - Tdap) DTaP/Tdap/Td Vaccines (1 - Tdap) [facility] Start: 2014 Urine microalbumin profile [facility] Start: 2013 Adult BMI Screening Adult BMI Screen ing 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 Start: 2007 Tobacco Screening Tobacco Screening [facility] Start: 05-31-2000 Varicella vaccination Varicell a Vaccines (1 of 2 - 2-dose childhood series) [facility] Start: 1996 MMR Vaccines (1 of 1 - Standard series) MMR Vaccines (1 of 1 - Standard series) [facility] Start: 1996 Varicella vaccination Varicell a Vaccines (1 of 2 - 2-dose childhood series) [facility] Start: 1995 COVID-19 VACCINE (#1) COVID-19 VACCI NE (#1) [facility] Start: 1995 HEPATITIS B (1 of 3 - 3-dose series) HEPATITIS B (1 of 3 - 3-dose series) [facility] Start: 1995 Hepatitis B Vaccine (1 of 3 - 3-dose series) Hepatitis B Vaccine (1 of 3 - 3-dose series) [facility] Start: 1995 Hepatitis B Vaccines (1 of 3 - 3-dose series) Hepatitis B Vaccines (1 of 3 - 3-dose series) [facility] Start: 1995 Lipid panel Lipid Panel [facility] Bacteria identified in Urine by Culture Urine culture Microbiology Routine Missed menses Ordered: 05/01/2025 [facility] Comment on above: Ordered: 05/01/2025 CBC W Auto Different ial panel - Blood CBC and differential Lab Routine Missed menses , unspecified gestational age Ordered: 05/01/2025 [facility] Comment on above: Ordered: 05/01/2025 Cytology Cervical or vaginal smear or scraping study Pap Smear Pathology and Cytology Routine Well woman exam with routine gynecological exam Ordered: 08/18/2024 [facility] Work Phone: Comment on above: Ordered: 08/18/2024 Hemoglobin A1c/Hemoglobin.total in Blood Hemoglobin A1c Lab Routine Missed menses , unspecified gestational age Ordered: 05/01/2025 [facility] Comment on above: Ordered: 05/01/2025 Hepatitis B virus siddiqui rface Ag [Presence] in Serum or Plasma by Immunoassay Hepatitis B surface antigen Lab Routine Missed menses , unspecified gestational age Ordered: 05/01/2025 [facility] Comment on above: Ordered: 05/01/2025 Hepatitis C virus Ab [Presence] in Serum or Plasma by Immunoassay Hepatitis C antibody Lab Routine Missed menses , unspecified gestational age Ordered: 05/01/2025 [facility] Comment on above: Ordered: 05/01/2025 HIV-1/HIV-2 antigen/antibody combination immunoassay HIV-1 and HIV-2 antibodies Lab Routine Missed menses , unspecified gestational age Ordered: 05/01/2025 [facility] Comment on above: Ordered: 05/01/2025 End: 06-15-2024 Mri pelvis w/o & w/contrast material MRI FEMALE PELVIS WO/W IVCON Radiology Routine Pelvic and perineal pain 1 Occurrences starting 05/17/2023 until 06/15/2024 [facility] Work Phone: Comment on above: 1 Occurrences starti ng 05/17/2023 until 06/15/2024 Reagin Ab [Presence] in Serum by RPR RPR Lab Routine Missed menses , unspecified gestational age Ordered: 05/01/2025 [facility] Comment on above: Ordered: 05/01/2025 Rubella antibody, IgG Rubella an tibody, IgG Lab Routine Missed menses , unspecified gestational age Ordered: 05/01/2025 [facility] Comment on above: Ordered: 05/01/2025 End: 11-30-2022 Tissue exam [facility] Work Phone: Comment on above: Once (Lab) for 1 Occ urrences starting 11/30/2022 until 11/30/2022, 1 completed [facility] [place] Immunizations Immunization Date Immunization Notes Care Provider Fa [facility] 09-11-2014 hepatitis A vaccine, adult dosage Nathan Kiesha DO Work Phone: [facility] 09-11-2014 human papilloma viru s vaccine, quadrivalent Nathan Kiesha DO Work Phone: [facility] 09-11-2014 influenza, seasonal, injectable, preservative free Nathan Kiesha DO Work Phone: [facility] 09-11-2014 influenza virus vaccine, unspecified formulation Tonia Moschella DO Work Phone: [facility] 05-04-2014 human papilloma viru s vaccine, quadrivalent Nathan Kiesha DO Work Phone: [facility] 2014 hepatitis A vaccine, adult dosage Nathan Kiesha DO Work Phone: [facility] 2014 human papilloma viru s vaccine, quadrivalent Nathan Kiesha DO Work Phone: [facility] 2014 tetanus toxoid, redu quinton diphtheria toxoid, and acellular pertussis vaccine, adsorbed Nathan Kiesha DO Work Phone: [facility] 04-03-2007 meningococcal polysaccharide (groups A, C, Y and W-135) diphtheria toxoid conjugate vaccine (MCV4P) Nathan Kiesha DO Work Phone: [facility] 05-03-2000 diphtheria, tetanus toxoids and acellular pertussis vaccine, unspecified formulation Nathan Kiesha DO Work Phone: [facility] 05-03-2000 measles, mumps and rubella virus vaccine Nathan Kiesha DO Work Phone: [facility] 05-03-2000 poliovirus vaccine, inactivated Nathan Kiesha DO Work Phone: [facility] 12-29-1997 diphtheria, tetanus toxoids and acellular pertussis vaccine, unspecified formulation Nathan Kiesha DO Work Phone: [facility] 08-01-1996 DTP-Haemophilus influenzae type b conjugate vaccine Nathan Kiesha DO Work Phone: [facility] 08-01-1996 hepatitis B vaccine, pediatric or pediatric/adolescent dosage Nathan Kiesha DO Work Phone: [facility] 08-01-1996 measles, mumps and rubella virus vaccine Nathan Kiesha DO Work Phone: [facility] 08-01-1996 trivalent poliovirus vaccine, live, oral Nathan Kiesha DO Work Phone: [facility] 1995 DTP-Haemophilus influenzae type b conjugate vaccine Nathan Kiesha DO Work Phone: [facility] 1995 hepatitis B vaccine, pediatric or pediatric/adolescent dosage Nathan Kiesha DO Work Phone: [facility] 1995 trivalent poliovirus vaccine, live, oral Nathan Kiesha DO Work Phone: [facility] 1995 DTP-Haemophilus influenzae type b conjugate vaccine Nathan Kiesha DO Work Phone: [facility] 1995 hepatitis B vaccine, pediatric or pediatric/adolescent dosage Nathan Kiesha DO Work Phone: [facility] 1995 trivalent poliovirus vaccine, live, oral Nathan Kiesha DO Work Phone: [facility] NEGATED: Highlighted row has not occurred!12-02-2022 measles, mumps and rubella virus vaccine Ritu Ryder DO Work Phone: [facility] Comment on above: Deferred: Other - Ru haja Immune NEGATED: Highlighted row has not occurred!12-02-2022 tetanus toxoid, reduced diphtheria toxoid, and acellular pertussis vaccine, adsorbed Ritu Ryder DO Work Phone: [facility] Comment on above: Deferred: No longer needed - Refused Tdap vaccine. Payers Date Payer Category Payer Self-pay 2024 Commercial Managed Care - [facility] [employer] [id number] 2024 Private Health Insurance [employer] [id number] 2024 Unknown [id number] 2023 Medicaid HMO [employer] [id number] 2022 Medicaid [id number] 2022 Unknown 2022 Unknown [id number] 2020 Unknown [id number] 2018 Medicaid [id number] 2018 Private Health Insurance [id number] 1995 Unknown [id number] 2.16.840.1.862264.3.579. 2.174 1995 Unknown [id number] 2.16.840.1.239888.3.579. 2.174 1995 Unknown [id number] 2.16.840.1.838286.3.579. 2.7 1995 Unknown [id number] 2.16.840.1.041556.3.579. 2. 1995 Unknown [id number] 2.16.840.1.403769.3.579. 2. 1995 Unknown [id number] 2.16.840.1.224182.3.579. 2. 1995 Unknown [id number] 2.16.840.1.917503.3.579. 2.7 1995 Unknown [id number] 2.16.840.1.855660.3.579. 2.727 1995 Unknown [id number] 2.16.840.1.843271.3.579. 2.1286 1995 Unknown [id number] 2.16.840.1.213460.3.579. 2.1259 1995 Unknown [id number] 2.16.840.1.556651.3.579. 2.1259 1995 Unknown [id number] 2.16.840.1.399211.3.579. 2.9 1995 Unknown [id number] 2.16.840.1.960517.3.579. 2.1259 1995 Unknown [id number] 2.16.840.1.939507.3.579. 2.9 1995 Unknown [id number] 2.16.840.1.994922.3.579. 2.1259 1995 Unknown [id number] 2.16.840.1.349055.3.579. 2.9 1995 Unknown [id number] 2.16.840.1.283390.3.579. 2.1259 1995 Unknown [id number] 2.16.840.1.518911.3.579. 2.9 1995 Unknown [id number] 2.16.840.1.650132.3.579. 2.9 1995 Unknown [id number] 2.16.840.1.216566.3.579. 2.1259 Unknown [id number] 2.16.840.1.124012.3.579. 2.531 Social History Date Type Detail Facility Start: 01-06-2021 End: 07-16-2023 Always uses seat belt Always uses seat belt [facility] Start: 12-10-2018 End: 03-10-2021 Tobacco smoking status Never smoked tobacco (finding) [facility] Tobacco smoking status Never [facility] Start: 01-06-2021 End: 07-16-2023 Sex Assigned At Female [facility] DAT[facility]legro Other Tobacco [facility] Comment on above: denies. Tobacco smoking status [facility] Start: 12-10-2018 End: 04-11-2023 Tobacco use and exposure Smokeless tobacco non-user [facility] Start: 04-11-2023 End: 12-10-2023 Alcohol intake Current drinker of alcohol (finding) [facility] Start: 10-08-2020 Alcohol Comment maybe a few dr martinez a month [facility] Start: 1995 Sex Assigned At Not on file S [facility] Start: 01-10-2024 End: 08-27-2025 Alcohol intake Lifetime non-drinker (finding) [facility] Within the last year , have you [...] 11-28-2022 History SDOH IPV Fear 2 S [facility] Start: 11-28-2022 History SDOH Housing Places Lived 1 [facility] Start: 04-12-2022 [facility] Start: 11-18-2022 End: 12-05-2022 Exposure to SARS-CoV-2 (event) Not sure [facility] Are you now , , , , never or living with a partner? [facility] Do you feel stress - tense, restless, nervous, or anxious, or unable to sleep at night because your mind is troubled all the time - these days [OSQ] Only a little [facility] Start: 12-02-2018 End: 02-03-2025 Sex Female (finding) [facility] Start: 1995 Sex Assigned At Female F [facility] Start: 08-19-2025 Alcoholic beverage intake Current non-drinker of alcohol (finding) [facility] Medical Equipment Procedure Code Equipment Code Equipment Origin al Text Equipment Identifier Dates 1 strip by In Vi tro route Daily Use in the morning prior to breakfast, 1 hour after each meal for a total of 4times daily. [id number] Start: 08-20-2025 End: 09-19-2025 1 each by In Vit ro route Daily Use to check FSBS four times daily [id number] Start: 08-20-2025 End: 09-19-2025 Functional Status Date Assessment Result Facility 07-30-2025 Patient Health Quest ionnaire 2 item (PHQ-2) [Reported] [facility] 09-12-2023 Functional Status N/A [facility] 01-31-2023 Functional Status N/A [facility] 12-30-2022 Functional Status N/A [facility] 11-27-2022 Functional Status N/A [facility] 07-14-2022 N/A [facility] Clinical Notes 04-18-2022 to 09-01-2025 Telephone Encounter - Cha Harris RN - 09/01/2025 12:29 PM EDTTelephone Encounter - Cha Harris RN - 09/01/2025 12:29 PM EDTMarbella Keane NP - 08/27/2025 3:20 PM EDT Note Date & Type Note Facility 09-01-2025 Miscellaneous Notes Called pt to discuss her blood sugars. She has more than 20% of her blood sugars elevated and all her fastings are high. She stated she is doing an 8 hour fasting and a snack in the evening. Let her know that we recommend a medication start. Pt asked to be transferred to [facility] to make that appt. documented in this encounter [facility] 09-01-2025 Telephone encounter Note Called pt to discuss her blood sugars. She has more than 20% of her blood sugars elevated and all her fastings are high. She stated she is doing an 8 hour fasting and a snack in the evening. Let her know that we recommend a medication start. Pt asked to be transferred to the [facility] to make that appt. [facility] 08-27-2025 History of Presen t illness Narrative Reason for Appointment: Patient ID: Driss Gama is a 30 y.o. female who presents for Routine Visit Patient presents today for Return OB appointment. MEDICATIONS Current Outpatient Medications Medication Instructions Alcohol Swabs (Alcohol Prep Pad) 70 % pads 1 Pad, Topical, Daily, Use four times daily to check FSBS. Blood Glucose Monitoring Suppl (D-Pzoom Glucometer) w/Device kit 1 kit, Does not [...] infection Headache History of menstrual cramps ([facility]) Varicella zoster Visual impairment HISTORY PAST [...] Laterality Date APPENDECTOMY 05/2016 at [facility] DILATION AND CURETTAGE [...] nursing note reviewed. Exam conducted with a french edge operator present. Vitals: Estimated body mass index is 29.23 kg/m as calculated from the following: Height as of 07/30/25: 5' 2 . Weight as of this encounter: 159 lb 12.8 oz. BP: (!) 158/92 Patient's last menstrual period was 02/21/2025. ASSESSMENT & PLAN ICD-10-CM 1. 26 weeks gestation of ([facility]) Z3A.26 POCT urinalysis dipstick manually resulted 2. Second trimester ([facility] Z34.92 Return OB: Patient presents today [...] labs and have her evaluated today at [facility]. I discussed with OB today and they are aware that patient is coming to be evaluated. Orders Placed This Encounter Procedures POCT urinalysis dipstick manually resulted Follow Up: Patient is to return to office in 2 week for routine OB appointment. Documented by Marbella Keane NP on behalf of: Marbella Keane NP documented in this encounter [facility] 08-24-2025 Group counseling note Patient: Driss Gama [...] Face to face time was 80 minutes. [facility] Work Phone: 08-24-2025 Miscellaneous Notes Patient: Driss [...] was 80 minutes. documented in this encounter [facility] 08-12-2025 History of Presen t illness Narrative [...] Laterality Date APPENDECTOMY 05/2016 at [facility] DILATION AND CURETTAGE [...] nursing note reviewed. Exam conducted with a french edge operator present. Vitals: Estimated body mass index is 27.82 kg/m as calculated from the following: Height as of 25: 5' 2 . Weight as of this encounter: 152 lb 1.9 oz. BP: 138/82 Patient's last menstrual period was 02/21/2025. ASSESSMENT & PLAN ICD-10-CM 1. 24 weeks gestation of ([facility]) Z3A.24 POCT urinalysis dipstick manually resulted 2. Second trimester ([facility]) Z34.92 POCT urinalysis dipstick manually [...] on Labetalol 100mg BID. Will refer to [facility] for evaluation. Patient denies any Headache or blurred vision. Documented by Marbella Keane NP on behalf of: Nathan Pop DO documented in this encounter [facility] 07-30-2025 History of Presen t illness Narrative Associated Problem(s): Hypertension Record Blood Pressures 2-4 times weekly and record. Return with readings at next appointment. Call with readings if sees significant changes Images from the original note were not included. Subjective ?Quick Links Last Note in Specialty Snapshot Current Meds Patient ID: Driss Sanchez Natan is a 30 y.o. female who presents [...] infection Headache History of menstrual cramps Hypertension ([facility]) Varicella zoster Visual impairment Objective ?Quick Links [...] Lipid panel; Future documented in this encounter [facility] 07-15-2025 History of Presen t illness Narrative [...] Laterality Date APPENDECTOMY 05/2016 at [facility] DILATION AND CURETTAGE [...] nursing note reviewed. Exam conducted with a french edge operator present. Vitals: Estimated body mass index is 26.48 kg/m as calculated from the following: Height as of 12/30/24: 5' 2 . Weight as of this encounter: 144 lb 12.8 oz. BP: 120/80 Patient's last menstrual period was 02/21/2025. ASSESSMENT & PLAN ICD-10-CM 1. 20 weeks gestation of ([facility]) Z3A.20 POCT urinalysis dipstick manually resulted 2. Second trimester ([facility]) Z34.92 POCT urinalysis dipstick manually [...] Nathan Pop DO documented in this encounter [facility] 06-22-2025 History of Presen t illness Narrative [...] infection Headache History of menstrual cramps ([facility]) Varicella zoster Visual impairment HISTORY PAST [...] Laterality Date APPENDECTOMY 05/2016 at [facility] DILATION AND CURETTAGE [...] nursing note reviewed. Exam conducted with a french edge operator present. Vitals: Estimated body mass index is 26.73 kg/m as calculated from the following: Height as of 12/30/24: 5' 2 . Weight as of this encounter: 146 lb 1.9 oz. BP: 118/74 Patient's last menstrual period was 02/21/2025. ASSESSMENT & PLAN (Z34.92) Second trimester ([facility]) Plan: POCT urinalysis dipstick manually resulted, Alpha fetoprotein, maternal, Alpha fetoprotein, maternal (Z3A.17) 17 weeks gestation of ([facility]) Plan: POCT urinalysis dipstick manually resulted, Alpha fetoprotein, maternal, Alpha fetoprotein, maternal (Z36.89) Screening, , for anatomic survey ([facility]) Plan: US OB 14+ weeks [...] Nathan Pop DO documented in this encounter [facility] 05-25-2025 History of Presen t illness Narrative [...] Laterality Date APPENDECTOMY 05/2016 at [facility] DILATION AND CURETTAGE [...] nursing note reviewed. Exam conducted with a french edge operator present. Vitals: Estimated body mass index is 25.24 kg/m as calculated from the following: Height as of 12/30/24: 5' 2 . Weight as of this encounter: 138 lb. BP: 122/80 Patient's last menstrual period was 02/21/2025. ASSESSMENT & PLAN ICD-10-CM 1. Second trimester ([facility]) Z34.92 POCT urinalysis dipstick manually resulted 2. 13 weeks gestation of ([facility]) Z3A.13 Return OB: Patient presents [...] Nathan Pop DO documented in this encounter [facility] 05-01-2025 History of Presen t illness Narrative [...] Laterality Date APPENDECTOMY 05/2016 at [facility] DILATION AND CURETTAGE [...] or undercooked meat, and stay away from [facility]. Patient has also been advised to [...] Hina Go LPN documented in this encounter [facility] 01-19-2025 History of Presen t illness Narrative Reason for Appointment: Patient ID: Driss Gama is a 29 y.o. female who presents for Painful Stick[place] Patient presents today for Consult appointment. MEDICATIONS Current Outpatient Medications Medication Instructions qoubyoevbi-glojudlwmfkag-ulilll ne 50-325-40 MG tablet 1 tablet, Oral, [...] 03/29/2023 Endometriosis 03/29/2023 Gastroparesis 03/29/2023 Hypertension ([facility]) 03/29/2023 Intractable migraine without aura and with status migrainosus ([facility]) 03/29/2023 Migraines ([facility]) 03/29/2023 Chronic pelvic pain in female 03/29/2023 Pain in female genitalia on intercourse 03/29/2023 Pain on swallowing 03/29/2023 Panic disorder ([facility]) 03/29/2023 Patellofemoral disorders, left knee 03/29/2023 Patellofemoral [...] Laterality Date APPENDECTOMY 05/2016 at [facility] DILATION AND CURETTAGE [...] nursing note reviewed. Exam conducted with a french edge operator present. Vitals: Estimated body mass index is [...] patient and patient given direct extension to Road Mechanic for any questions/concerns pertaining to fertility. Documented by Christa Yanes LPN on behalf of: Nathan Pop DO documented in this encounter [facility] 12-30-2024 History of Presen t illness [...] Laterality Date APPENDECTOMY 05/2016 at [facility] DILATION AND CURETTAGE [...] min Stress: No Stress Concern Present (12/29/2024) [employer] [place] [facility] [employer]ational [facility] - Occupational Stress Questionnaire Feeling of Stress : Only a little Social Connections: Unknown (12/29/2024) Social Connection and Isolation Panel [NHANES] Frequency of Communication with Friends and Family: More than three times a week Frequency of Social Gatherings with Friends and Family: Once a week Attends Buddhist Services: Patient declined Active Member of Clubs [...] with the patient today. Current Outpatient Medications: azhemyuutr-fesaebaqeeofg-zbdbjt ne 50-325-40 MG tablet, Take 1 tablet by mouth every 6 (six) hours if needed for headaches, Disp: 20 tablet, Rfl: 0 desogestrel-ethinyl estradiol (Apri) 0.15-30 MG-MCG tablet, Take 1 tablet by mouth Daily, Disp: 21 tablet, Rfl: 12 metoprolol succinate XL (Toprol-XL) 25 MG 24 hr tablet, Take 1 tablet by mouth daily, Disp: 90 tablet, Rfl: 1 documented in this encounter [facility] 08-18-2024 History of Presen t illness Narrative Reason for Appointment: Patient ID: Driss Cope is a 29 y.o. female who presents for Well Women Visit Patient presents today for Annual Exam. MEDICATIONS Current Outpatient Medications Medication Instructions ilaropwomg-hfjetelrbnkrm-mtmnko ne 50-325-40 MG tablet 1 tablet, Oral, [...] Laterality Date APPENDECTOMY 05/2016 at [facility] DILATION AND CURETTAGE [...] nursing note reviewed. Exam conducted with a french edge operator present. Vitals: Estimated body mass index is 25.97 kg/m as calculated from the following: Height as of 24: 5' 2 . Weight as of this [...] Zenobia Gutierrez PA-C documented in this encounter [facility] 07-22-2024 History of Presen t illness Narrative Reason for Appointment: Patient ID: Driss Cope is a 29 y.o. female who presents for Dysmenorrhea Patient presents today for Acute Visit. MEDICATIONS Current Outpatient Medications Medication Instructions aerrxognok-gmjvpibqtdsgd-omdrnu ne 50-325-40 MG tablet 1 tablet, Oral, [...] 03/29/2023 Endometriosis 03/29/2023 Gastroparesis 03/29/2023 Hypertension ([facility]) 03/29/2023 Intractable migraine without aura and with status migrainosus ([facility]) 03/29/2023 Migraines ([facility]) 03/29/2023 Chronic pelvic pain in female 03/29/2023 Pain in female genitalia on intercourse 03/29/2023 Pain on swallowing 03/29/2023 Panic disorder ([facility]) 03/29/2023 Patellofemoral disorders, left knee 03/29/2023 Patellofemoral disorders, right knee 03/29/2023 Posterior calcaneal exostosis 03/29/2023 Scapular dyskinesis 03/29/2023 Scoliosis 03/29/2023 Seasonal allergic rhinitis due to pollen 03/29/2023 Tachycardia, paroxysmal ([facility]) 03/29/2023 Tension headache 03/29/2023 Vitamin B12 deficiency [...] Laterality Date APPENDECTOMY 05/2016 at [facility] DILATION AND CURETTAGE [...] nursing note reviewed. Exam conducted with a french edge operator present. Vitals: Estimated body mass index is [...] Nathan Pop DO documented in this encounter [facility] 04-29-2024 Telephone encounter Note Received message from admin Anna Webb to cancel surgery and all appts as pt had services elsewhere [facility] 04-29-2024 Miscellaneous Notes Received message from admin Anna Webb to cancel surgery and all appts as pt had services elsewhere documented in this encounter [facility] 04-25-2024 Telephone encounter Note Pt got in sooner for surgery with her local group fitness manager. Please cancel surgery and all pre and post op appts. [facility] 04-25-2024 Miscellaneous Notes Pt got in sooner for surgery with her local group fitness manager. Please cancel surgery and all pre and post op appts. documented in this encounter [facility] 01-10-2024 History of Presen t [...] 03/29/2023 Endometriosis 03/29/2023 Gastroparesis 03/29/2023 Hypertension ([facility]) 03/29/2023 Intractable migraine without aura and with status migrainosus ([facility]) 03/29/2023 Migraines ([facility]) 03/29/2023 Chronic pelvic pain in female 03/29/2023 Pain in female genitalia on intercourse 03/29/2023 Pain on swallowing 03/29/2023 Panic disorder ([facility]) 03/29/2023 Patellofemoral disorders, left knee 03/29/2023 Patellofemoral disorders, right knee 03/29/2023 Posterior calcaneal exostosis 03/29/2023 Scapular dyskinesis 03/29/2023 Scoliosis 03/29/2023 Seasonal allergic rhinitis due to pollen 03/29/2023 Tachycardia, paroxysmal ([facility]) 03/29/2023 Tension headache 03/29/2023 Vitamin B12 deficiency [...] Laterality Date APPENDECTOMY 05/2016 at [facility] DILATION AND CURETTAGE 12/2022 retained placenta DISTAL CLAVICLE EXCISION Right 07/2018 Shoulder - open - DAP LAPAROSCOPY DIAGNOSTIC / BIOPSY / ASPIRATION / LYSIS 02/2019 endometriosis2019 SHOULDER SURGERY Right open distal clavicle excision-DAP [...] nursing note reviewed. Exam conducted with a french edge operator present. Vitals: Estimated body mass index is [...] Nathan Pop DO documented in this encounter [facility] 01-03-2024 Miscellaneous Notes Refill(s) request: Requested [...] mg tablet Class: Normal Route: ORAL Order: [id number] E-Prescribing Status: Receipt confirmed by pharmacy (05/17/2023 [...] that may recur and often requires a mcfp treatment plan. Once endometriosis is identified, there [...] Center 05/20/2024 10:00 AM Kevin Crenshaw Nurse [facility] 06/23/2024 10:30 AM Charlene Rodriguez DO [facility] Appointment scheduled: As listed above Action taken: Refill request routed to clinician Pippa Simon RN January 03, 2024 4:29 PM Patient: Driss Cope : 1995 Provider: Charlene Rodriguez DO Caller Phone #: [phone] (home) [phone] (cell) Reason for call: b/c refill Message routed to nurse triage Date of next visit: MEGAN: 12/10/2023 documented in this encounter [facility] 12-10-2023 Note HNO ID: [id number] Author: CHARLENE RODRIGUEZ DO Service: ? Author Type: Physician Type: Progress Notes Filed: 12/10/2023 15:14 Note Text: [facility] [place] SECTION FOR MINIMALLY INVASIVE GYNECOLOGIC SURGERY OUTPATIENT VISIT DATE 12/10/2023 OUTPATIENT VISIT TYPE Follow-up visit PRIMARY CARE PHYSICIAN: Cruz Rodríguez [address] [place] [address] REFERRING PHYSICIAN: Self CHIEF COMPLAINT: No chief [...] MRI: no evidence of Past Gynecologic History: Court Deputy History LMP: 07/08/2023 (Exact Date), Having periods Age at Menarche: 14 Age at First : 27 Age at Menopause: Court Deputy History Comments: Sexual Activity: Never; No partner [...] not included)... [facility] 09-12-2023 Hospital Discharg e instructions Patient Education [...] Follow these instructions at home: Medicines Take iqim-woq-tsvgnlq and prescription medicines only as told by [...] buy a blood pressure monitor at most [employer] or online. Where to find more information [place] [employer]: www.heart.org Contact a health care [...] provider. Document Revised: 07/27/2022 Document Reviewed: 07/27/2022 [employer] Patient Education 2022 [employer]. 09/12/2023 18:18:13 Hypertension, Adult, Vkph-ka-Jtbd Hypertension, Adult Hypertension is another name for [...] doctor. Keep all follow-up visits. Medicines Take mfew-rxo-pxwfwcy and prescription medicines only as told by [...] provider. Document Revised: 08/31/2022 Document Reviewed: 08/31/2022 [employer] Patient Education 2022 [employer]. 09/12/2023 18:18:13 General Headache Without Cause, Qdfz-ql-Bsha General Headache Without Cause A headache is pain or discomfort you feel around the head or neck area. There are many causes and types of headaches. In some cases, the cause may not be found. Follow these instructions at home: Watch your condition for any changes. Let your doctor know about them. Take these steps to help with your condition: Managing pain Take foed-rhq-zhsltyp and prescription medicines only as told by [...] provider. Document Revised: 04/12/2022 Document Reviewed: 04/12/2022 [employer] Patient Education 2022 [employer]. Follow Up Care 09/12/2023 17:21:57 With:CRUZ RODRÍGUEZ [facility] [address] Business (1) When:09/15/2023 18:03:37 Comments:Follow-up with your primary care provider in 3 to 5 days. If symptoms worsen, do not improve, or new symptoms arise please report back to emergency department for further evaluation. [facility] 09-12-2023 Evaluation + Plan note Extrac [...] date 09/12/23 18:02:00 EDT, 09/12/23 18:02:[address] [facility]10-16-2023 Instructions* Patient Instructions* Srinivasa Downs APRN.ANA LAURA - 09/10/2023 9:52 AM EDT Plan: Trial baclofen suppositories - can switch to pill vaginally if suppositories are not affordable Consider Pelvic floor physical therapy - can find local provider [email or web address] Consider going back to see Dr Kuldip Downs APRN.ANA LAURA [facility]23 NoteHNO ID: [id number] Author: Charlene Rodriguez DO Service: ? Author Type: Physician Type: Progress Notes Filed: 08/30/2023 11:15 AM Note Text: Tramadol rx sent to pharmacy.[facility]10-05-2023 History of Present illness Narrative* Charlene Rodriguez DO - 08/30/2023 11:13 AM EDT Tramadol rx sent to pharmacy. documented in this encounterM[facility]10[facility]23 Miscellaneous Notes* Telephone Encounter - Chelsie Dueñas RN - 08/30/2023 10:50 AM EDT Last office visit: 08/24/2023 Assessment and Plan No diagnosis found. Trial baclofen suppositories Will send list of PTs Consider going back to [place] SIGNATURE: Srinivasa Downs APRN.ANA LAURA Office visit with Dr. Rodriguez 07/16/2023 IMPRESSION: [...] plan. Charlene Rodriguez DO documented in this encounterM[facility]09-[facility]-2023 NoteHNO ID: [id number] Author: Srinivasa Downs APRN.ANA LAURA Service: ? Author Type: Nurse Practitioner Type: Progress Notes Filed: 09/10/2023 9:53 AM Note Text: [facility] [place] Department of Benign Gynecology [facility] PATIENT NAME: Driss Cope DATE: 08/24/2023 Patient Name and verified: Yes Patient Location: [place] This Virtual Visit was completed using My Chart Zoom platform. I have communicated my name and active licensure. The patient's identity and physical location were verified at the time of this visit. Either the patient or their legal agency service representative has been informed of the risks [...] appointment yet. GI - constipation is improved Stickney - hasn't tried due to pain and [...] physical therapy - or can go locally [facility] Trial flexeril at bedtime Can consider Baclofen suppositories Continue Norethindrone - can take up to 3 months for it to stop periods, take at same time every day Relaxation techniques Srinivasa Downs APRN.CNP OB History T0 L1 SAB0 IAB0 Ectopic0 Multiple0 [address] Deputy History LMP: 07/08/2023 (Exact Date), Having periods Age at Menarche: 14 Age at First : 27 Age at Menopause: Court Deputy History Comments: Sexual Activity: Never; No partner [...] content not included)...[facility]2023 History of Present illness Narrative* Srinivasa Downs APRN.CNP - 08/24/2023 9:24 AM EDT Images from the original note were not included. [facility] [place] Department of Benign Gynecology [facility] PATIENT NAME: Driss Cope DATE: 08/24/2023 Patient Name and verified: Yes Patient Location: [place] This Virtual Visit was completed using My Chart Zoom platform. I have communicated my name and active licensure. The patient's identity and physical location wereverified at the time of this visit. Either the patient or their legal agency service representative has been informed of the risks [...] appointment yet. GI - constipation is improved Stick[place] - hasn't tried due to pain and [...] physical therapy - or can go locally [facility]ab[employer] Trial flexeril at bedtime Can consider Baclofen suppositories Continue Norethindrone - can take up to 3 months for it to stop periods, take at same time every day Relaxation techniques Srinivasa Downs APRN.CNP OB History T0 L1 SAB0 IAB0 Ectopic0 Multiple[address] Deputy History LMP: 07/08/2023 (Exact Date), Having periods Age at Menarche: 14 Age at First : 27 Age at Menopause: Court Deputy History Comments: Sexual Activity: Never; No partner [...] Level: 3 - Low documented in this encounterM[facility]09-[facility]23 Miscellaneous Notes* Telephone Encounter - [...] Provider: Charlene Rodriguez DO Caller Phone #: [phone] (home) [phone] (cell) Reason for call: pt calling regarding mc message., still in pain. Please call [phone] Message routed to nurse triage Date of next visit: documented in this encounterMarietta [facility]09-07-2023 Miscellaneous Notes* Telephone Encounter - Christa Suárez RN - 08/02/2023 11:29 AM EDT PA for orilissa completed via Cover MyMeds. Driss Cope (Morales: [id number]) - [id number] Orilissa 150MG tablets Status: Sent To Plan [...] too. Please advise. Thanks. documented in this encounterMari[facility]08-21-2023 NoteHNO ID: [id number] Author: Charlene Rodriguez, DO Service: ? Author Type: Physician Type: Progress Notes Filed: 07/16/2023 12:41 PM Note Text: [facility] [place] SECTION FOR MINIMALLY INVASIVE GYNECOLOGIC SURGERY OUTPATIENT VISIT DATE 07/16/2023 OUTPATIENT VISIT TYPE Follow-up visit PRIMARY CARE PHYSICIAN: Cruz Rodríguez [address] [place] [address] REFERRING PHYSICIAN: Cruz Rodríguez CHIEF COMPLAINT: No [...] additional bowel lesions identified Past Gynecologic History: Court Deputy History LMP: 07/08/2023 (Exact Date), Having periods Age at Menarche: 14 Age at First : 27 Age at Menopause: Court Deputy History Comments: Sexual Activity: Never; No partner [...] content not included)...[facility]07-18-2023 History of Present illness Narrative* Boo Singh [...] 12, 2023 4:32 PM documented in this encounterMari[facility]07-18-2023 NoteHNO ID: [id number] Author: Rosio Malcolm RT(Bryant) Service: ? Author Type: School Lunch Manager Type: Progress Notes Filed: 06/12/2023 4:32 PM [...] BY: RT Claudia(R) June 12, 2023 4:32 [facility]07-18-2023 NoteHNO ID: [id number] Author: Boo Singh RN Service: Nursing Author [...] Cope DATE: June 12, 2023 TIME: 1:43 [facility]06-22-2023 NoteHNO ID: [id number] Author: Charlene Rodriguez, DO Service: ? Author Type: Physician Type: Progress Notes Filed: 05/21/2023 10:15 AM Note Text: [facility] [place] SECTION FOR MINIMALLY INVASIVE GYNECOLOGIC SURGERY OUTPATIENT [...] to appointment last week Past Gynecologic History: Court Deputy History LMP: 04/22/2023 (Exact Date), Having periods Age at Menarche: 14 Age at First : 27 Age at Menopause: Court Deputy History Comments: Sexual Activity: Never; No partner [...] Tt: [facility] minutes[facility] History of Present illness Narrative* Charlene Rodriguez DO - 05/17/2023 1:05 PM EDT Images from the original note were not included. [facility] [place] SECTION FOR MINIMALLY INVASIVE GYNECOLOGIC SURGERY OUTPATIENT [...] to appointment last week Past Gynecologic History: Court Deputy History LMP: 04/22/2023 (Exact Date), Having periods Age at Menarche: 14 Age at First : 27 Age at Menopause: Court Deputy History Comments: Sexual Activity: Never; No partner [...] DO Tt: 20 minutes documented in this encounterMarietta [facility]06-16-2023 Miscellaneous Notes* Telephone Encounter - [...] 05/17/2023 1:00 PM CHARLENE RODRIGUEZ [facility] [phone] Christa Suárez, RN * Telephone Encounter - Tawana Nair [facility] - 05/11/2023 1:19 PM EDT Reason for call: other - Vaginal bleeding Provider name: Dr Rodriguez Additional comments: patient having more vaginal bleeding and concerned she is getting worse. Recommendation: routed to nurse triage pool documented in this encounterMarietta [facility] Hospital06-06-2023 Instructions* Patient Instructions* Srinivasa Downs APRN.CNP - 05/01/2023 11:47 AM EDT Plan Pelvic floor physical therapy - or can go locally [facility] Trial flexeril at bedtime Can consider Baclofen [...] pelvic pain society ([email or web address].org) documented in this encounterMarietta [facility]06-06-2023 History of Present illness Narrative* Srinivasa Downs APRN.ANA LAURA - 05/01/2023 10:30 AM EDT Driss Cope is a 28 year old female who presents for problem visit for pain HPI: Pain is week before period and week of period. Worse on her period for every day she's bleeding Urinary - No symptoms GI - Always constipated. No meds Stickney - painful always Pain is on left [...] L0 SAB0 IAB0 Ectopic0 Multiple0 Live [address] Deputy History LMP: 03/26/2023 (Approximate), Having periods Age at Menarche: Age at First : Age at Menopause: Court Deputy History Comments: Sexual Activity: Never; No partner [...] Level: 4 - Moderate documented in this encounterMarietta [facility]06-06-2023 NoteHNO ID: [id number] Author: Srinivasa Downs APRN.CNP Service: ? Author Type: Nurse Practitioner Type: Progress Notes Filed: 05/09/2023 11:46 AM Note Text: Driss Cope is a 28 year old female who presents for problem visit for pain HPI: Pain is week before period and week of period. Worse on her period for every day she's bleeding Urinary - No symptoms GI - Always constipated. No meds Stickney - painful always Pain is on left [...] L0 SAB0 IAB0 Ectopic0 Multiple[address] Deputy History LMP: 03/26/2023 (Approximate), Having periods Age at Menarche: Age at First : Age at Menopause: Court Deputy History Comments: Sexual Activity: Never; No partner [...] management Medical Decision Making Level: 4 - [place] [address]-31-2023 Miscellaneous Notes* Telephone Encounter - Marilee Valdez [...] months. Lucila Foss RN documented in this encounterM[facility]03-08-[facility]23 Hospital Discharge instructions Patient Education [...] told by your health care provider. Take hqsn-prp-kvrlvjz and prescription medicines only as told by [...] 01/03/2007 Document Revised: 10/25/2018 Document Reviewed: 01/25/2018 [employer] Patient Education 2020 [employer] Follow Up Care 01/31/2023 13:43:01 With:Cruz Meza Address:Unknown When:02/03/2023 18:59:31 Comments:Follow-up for evaluation of hypertension in context of known preeclampsia in the period With:CRUZ RODRÍGUEZ Address: [address] [place] [address] Business (1) When:Within 3 Day(s) [facility]03-08-2023 Evaluation + Plan noteExtracted from: Title:ED Note Author:Mayur Mabry PA-C e:01/31/23 Flank pain (R10.9: Unspecifi ed abdominal pain) Headache (R51.9: Headache, unspecified) Orders: CTA Chest Hepatic Function Panel [facility]02-04-2023 Hospital Discharge instructions Patient Education 12/30/2022 13:59:51 DIRECTOR OF VOCATIONAL TRAINING - Post D&C, Hysteroscopy, LEEP or Essure/Laparoscopy [...] Instructions - FT (Custom) (Custom) 12/30/2022 13:55:16 DIRECTOR OF VOCATIONAL TRAINING - Post D&C, Hysteroscopy, LEEP or Essure/Laparoscopy [...] 08:14:12 With:Cruz Meza Address: [address], [address] [place] [address] Business (1) When: Unknown Comments:follow up in 1-2 weeks With:CRUZ RODRÍGUEZ Address: [address] [place] [address] Business (1) When:01/02/2023 09:21:[address] [facility]02-04-2023 Evaluation + Plan noteExtracted from: Title:ANES [...] from: Title:ANES Pre-operative Note Author:Vamsi BLACKWELL, Bryant aric SKaren Date:12/30/22 Plan [place] [employer] Anesthesiologists (ASA) physical status classification: [...] With Cult Reflex US Pelvis Non-OB Complete [facility]01-10-2023 History of Present illness Narrative* Tory [...] Ross MD - 12/05/2022 3:19 PM EST [facility]: [facility] by the resident. I reviewed and agree with the care provided by the resident during or immediately following the visit including the patient's medical history, the resident's finding in the physical exam, patient's diagnosis and treatment plan. documented in this [facility]01-07-2023 NoteDepartment of Obstetrics and Gynecology Delivery Discharge Summary Admission on 11/28/2022 12:24 AM Hospital course: Driss Cope at 35w1d admitted as a transfer from [facility] for PreEwSF. She was started on Magnesium [...] Information for the patient's : Francie Cope [[id number]] female 2425 g (5 lb 5.5 oz) Apgars: Information for the patient's : Francie Cope [[id number]] : Infant: Girl Blood Type/Rh: O Antibody [...] Your Medications These medications were sent to [facility] [address] [place] [address] Hours: Sunday to Sunday 10 am to 6 pm docusate sodium 100 MG capsule ibuprofen 600 MG tablet NIFEdipine XL 30 MG 24 hr tablet Activity: Activity as tolerated Diet: Regular diet Follow-up Appointments: - visit - Blood pressure check If a patient meets criteria for hypertension, make sure the following are done prior to discharge: [] Order a blood pressure kit through [facility] (or the patient's own pharmacy on the weekend) [] Order the blood pressure log through [employer] [x] Place an office visit or telephone [...] notify her physician if any of these occur.[facility] History of Present illness Narrative* Anna [...] with more than 50% of the total yorn-js-qkkb time of the visit in counseling/coordination of [...] be monitored and followed by the diet park maintenance technician. CRISS Oshea * Alejandra Arcos RN [...] placed at this time. Cat I. PRINCE BRADY, 11/28/2022 2:15 AM 2.d cytotec placed at this time. Cervix unchanged. FHT cat II for periods of minimal variability. Pt resting comfortably in bed. Per Dr. Tran, continue cytotec and defer FB until 2 cm. Cytotec x3 placed at this time. FHT cat I and reassuring. CCM. Cx:/-3 FHT: Cat 1 [place]:q3-4 min A/P: 1. IOL-PreEwSF. FHT 130 baseline, with moderate variability, Accelerations present Yes, and rare late deceleration . Cervical exam unchanged. Cytotec x4 placed at this time. Patient intermittently feeling contractions. BP mild range. Cx: 1-/-3 FHP: defer FHT: Cat I [place]: a3-4min A/P: 1. IOL-PreEwSF: FHT Category I, [...] Cx: unchanged FHP: defer FHT: Cat I [place]: q4min A/P: 1. IOL-PreEwSF: FHT Category I, [...] 11/29/2022 6:17 AM Cx:1-/-3 FHT: Cat I [place]:q4-5mins A/P: 1. IOL-PreEwSF: Cat I FHT with [...] per protocol. CCM. Cx:defer FHT: Cat I [place]:q4-6mins A/P: 1. IOL-PreEwSF: Cat I FHT with baseline 120, moderate variability, spontaneous accelerations, and no decelerations. BP normotensive to mild range since last note time. Pitocin @ 2 cc/hr, continue to titrate per protocol. Magnesium sulfate running for seizure prophylaxis, UOP 400 ml over past 4hours. CCM. Cx:defer FHT: Cat I [place]:q4-5mins A/P: 1. IOL-PreEwSF: Cat I FHT with baseline 135, moderate variability, spontaneous accelerations, and no decelerations. BP normotensive to mild range since last note time. Pitocin @ 6 cc/hr, continue to titrate per protocol. Magnesium sulfate running for seizure prophylaxis, UOP 600 ml over past 4hours. Will plan for AROM soon. CCM. Cx:defer FHT: Cat I [place]:irritability A/P: 1. IOL-PreEwSF: Pit @ 8 mu/min. Patient resting comfortably and only irritability tracing on toco. BP most recently mild range. On magnesium sulfate for seizure prophylaxis. UOP adequate. Continue magnesium and continue to titrate pitocin per protocol. Plan for AROM once patient rudi more regularly. Electronically signed by Cortney Velasquez DO 11/29/2022 4:21 PM Cx:470/-3 FHT: Cat 1 [place]:Not tracing A/P: 1. IOL-PreEwSF. FHT 135 baseline, with moderate variability, Accelerations present Yes, and nodecelerations seen . AROM at this time for moderate amount blood tinged fluid. Pitocin at 8cc/hr. Maternal BP mild range. On Magnesium for Seizure prophylaxis. Patient with adequate urinary output. CCM. Cx: defer FHP: defer FHT: Cat II [place]: not tracing well A/P: 1. IOL-PreEwSF: FHT Category II for brief period of lates vs early deceleration prior to epidural placement, with moderate variability, accelerations present, and decelerations present. Blood pressure NT. Pit @ 8 ml/hr. Just got epidural placed. Plan for eventual SVE and possible IUPC placement if unchanged. PRINCE BRADY DO 11/29/2022 6:45 PM Cx: 680/-1 per RN FHP: defer FHT: Cat II [place]: q4min A/P: 1. IOL-PreEwSF: FHT Category II [...] delivery note for details documented in this [facility]01-07-2023 Hospital course Narrative* César Tran DO - 12/02/2022 12:32 PM EST Images from the original note were not included. Department of Obstetrics and Gynecology Delivery Discharge Summary Admission on 11/28/2022 12:24 AM Hospital course: Driss Cope at 35w1d admitted as a transfer from [facility] for [facility]. She was startedon Magnesium there [...] Information for the patient's : Francie Cope [[id number]] female 2425 g (5 lb 5.5 oz) Apgars: Information for the patient's : Francie Cope [[id number]] : : Girl Blood Type/Rh: O Antibody [...] Your Medications These medications were sent to [facility] [address] [place], [place] [id number] Hours: Sunday to Sunday 10 am to 6 pm docusate sodium 100 MG capsule ibuprofen 600 MG tablet NIFEdipine XL 30 MG 24 hr tablet Activity: Activity as tolerated Diet: Regular diet Follow-up Appointments: - visit - Blood pressure check If a patient meets criteria for hypertension, make sure the following are done prior to discharge: [] Order a blood pressure kit through [facility] (or the patient's own pharmacy on the weekend) [] Order the blood pressure log through [employer] [x] Place an office visit or telephone [...] any of these occur. documented in this [facility]01-06-2023 Note* Care Coordination - Christine Michelle [...] home. Denies any concerns at this time. [facility] [id number] Note* Care Coordination - Christine Michelle RN [...] home. Denies any concerns at this time. [facility] [id number] Miscellaneous Notes* Care Coordination - Christine Michelle [...] for this pt. Due to: infant in [facility] Hospital breast pump, supplies [...] pump Told patient to check with in [facility] for smaller flange sizes * L&D Delivery Note - Irina Kramer DO - 11/30/2022 4:04 AM EST Images from the original note were not included. Vaginal Delivery Note Department of Obstetrics and Gynecology Patient: Driss Cope : 1995 Date of delivery: 11/30/2022 Pre-operative Diagnosis: Driss Cope at 35w1d 1. <37 weeks 2. PreEwSF Post-operative Diagnosis: Live Born female Delivering Diesel Engineer & Condominium Association Manager(s): Dr. Bowden; Dr. Kramer Infant Information: Information for the patient's : Francie Cope [[id number]] Information for the patient's : Francie Cope [[id number]] Description: normal Meconium Noted: No Anesthesia: epidural [...] RUBELLAIGG Irina Kramer DO 11/30/2022, 4:04 AM Associated [...] change. Clotilde Mg RN documented in this [facility]01-06-2023 Obstetrics Note* Note - Ligia Bridges RN - 12/01/2022 9:00 AM EST 22.5mm flanges given to patient. Encouraged her to call for observation of pump session and smallerflanges. Martha in NICU to assist with personal pump. [facility] [id number] Hospital Discharge instructions* Discharge Instructions* Carol Bowden [...] as 8 weeks after delivery. Bleeding may crop picker and then decrease again around 7-10 [...] of harming yourself or your . If infant will not stop crying, contact [...] avoid constipation you may take a mild jagg-kqw-qszlotz stool softener (such as colace) as recommended [...] positive or a Person Under Investigation (PUI) Yiwwbr-jk-exiqt transmission of COVID-19 during is unlikely, but after a baby is susceptible to mbbrqk-bj-vrntqd spread. After your baby is born, your [...] steps below until a healthcare provider or [facility] or [facility] health department says you can return to [...] clean your hands with an alcohol-based hand spiral winding machine helper that contains at least 60% alcohol. Clean your hands often Wash your hands often with soap and water for at least 20 seconds, especially after blowing your nose, coughing, or sneezing; going to the bathroom; and before eating or preparing food. If soap and water are not readily available, use an alcohol-based hand spiral winding machine helper with at least 60% alcohol, covering all [...] to call the local or [facility] health department. Persons who are placed underactive [...] isolation precautions should be made on a eyuz-je-muce basis, in consultation with healthcare providers and [facility] health departments. Information on COVID-19 for ALL [...] respiratory tract signs and symptoms. Ways to [place] with Anxiety & Stress It is normal [...] an illness that was first found in [facility], in October 2019. It has since spread [...] seen in people before. This virus spreads wtfuiq-bp-ttbluz through droplets from coughing and sneezing. It [...] water aren't available, use an alcohol-based hand spiral winding machine helper. Call 911 anytime you think you may [...] of: February 25, 2020 Content Version: 12.4 [employer]. Care instructions adapted under license by your healthcare professional. If you have questions about a medical condition or this instruction, always ask your healthcare professional. [employer] disclaims any warranty or liability for your use of this information. General Recommendations for Routine Cleaning and Disinfection of Households Community members can practice routine cleaning of frequently touched surfaces (for example: tables, doorknobs, light switches, handles, desks, toilets, faucets, sinks) with household blood bank laboratory technologist and EPA-registered disinfectants that are appropriate for [...] appropriate. These supplies include tissues, paper towels, blood bank laboratory technologist and EPA-registered disinfectants (see list link at [facility] website). If a separate bathroom is not [...] be used for other purposes. Consult the technologist infectious disease's instructions for cleaning and disinfection products used. [...] used if appropriate for the surface. Follow technologist infectious disease's instructions for application and proper ventilation. Check [...] water Products with EPA-approved emerging viral pathogens claimspdf iconexternal icon are expected to be effective against COVID-19 based on data for harder to kill viruses. Follow the technologist infectious disease's instructions for all cleaning and disinfection products (e.g., concentration, application method and contact time, etc.). Soft (porous) surfaces such as carpeted floor, rugs, and drapes Remove visible contamination if present and clean with appropriate blood bank laboratory technologist indicated for use on these surfaces. After cleaning: Launder items as appropriate in accordance with the technologist infectious disease's instructions. If possible, launder items using the [...] items as appropriate in accordance with the technologist infectious disease's instructions. If possible, launder items using the warmest appropriate water setting for the items and dry items completely. Dirty laundry from an ill person can be washed with other people's items. Clean and disinfect clothes hampers according to guidance above for surfaces. If possible, considerplacing a hosiery bagger that is either disposable (can be thrown away) or can be laundered. CDC has a list of EPA approved cleaning products on their website - https://www.cdc.gov/coronavirus/ 2019-ncov/community/home/cleaning-disinfection.html https://www.Facebook.[employer]/Ksubu-Isdrykcrokf-Oghxjuaj-Products-List.pdf [employer] Stores with delivery and crop picker services: Aleyda: Free crop picker at locations Delivery is $12.95 a month Website - [employer]ok [place]: Multimedia Production Assistant $2.95 (1st order is free) Delivery is $14.95 Website - [employer] Marimar Jenkins: accounts payable supervisor is free Delivery is $5.95 Website - [employer]: accounts payable supervisor is $4.95 Delivery is $9.95 Website [employer]: accounts payable supervisor is $4.95 Delivery is $9.95 Website - [employer] Market: Can be ordered for delivery and crop picker with [employer] Website - [employer]: Free deliver for first 3 orders of $35 or more Website - [employer]diMicrofabrica [employer] Will deliver from [employer], [employer], [employer], and [employer]. Annual membership is $99 Monthly membership is $14 * Attachments The following attachments cannot be sent through Care Everywhere. * Preeclampsia Discharge Instructions (Gibraltarian) documented in this [facility]01-05-2023 Obstetrics Note* Note - Sheila Harrell RN - 11/30/2022 10:37 AM EST Swabs given to patient and educated how to use and to bring to infant CRISTIAN [facility] [id number] Obstetrics Note* Note - Sheila Harrell RN - 11/30/2022 10:30 AM EST Breast pump use indicated for this pt. Due to: infant in [facility] breast pump, supplies kit, swabs and [...] Told patient to check with LC in [facility] for smaller flange sizes [facility] [id number] NotePatient: Driss Cope Procedure Summary Date: 11/29/22 [...] discharged once all PACU criteria has been met.[facility]01-05-2023 NotePatient: Driss Cope Procedure Summary Date: [...] Allowed opportunity for questions and acknowledgement of understanding.[facility]01-05-2023 Labor and delivery summary note* L&D Delivery Note - Irina Kramer DO - 11/30/2022 4:04 AM EST Images from the original note were not included. Vaginal Delivery Note Department of Obstetrics and Gynecology Patient: Driss Cope : 1995 Date of delivery: 11/30/2022 Pre-operative Diagnosis: Driss Sidhu at 35w1d 1. <37 weeks 2. PreEwSF Post-operative Diagnosis: Live Born female Delivering Diesel Engineer & Condominium Association Manager(s): Dr. Bowden; Dr. Kramer Infant Information: Information for the patient's : Francie Cope [[id number]] Information for the patient's : Francie Cope [[id number]] Description: normal Meconium Noted: No Anesthesia: epidural [...] Immunity Status: No results found for: CAITY Arevalo MichellesuzanneDO 11/30/2022, 4:04 AM Associated attestation - Carol Bowden MD - 12/01/2022 8:22 AM EST Procedures or Surgery: I was present for all morales elements of the procedure or surgery as described in the resident note. [facility] [id number] NoteEpidural Block Time Out: 11/29/2022 6:17 PM Patient location during procedure: OB Start time: 11/29/2022 6:18 PM End time: 11/29/2022 6:45 PM Reason for block: labor analgesia Staffing Performed: SKILLED NURSING FACILITY COUNSELOR Resident/SKILLED NURSING FACILITY COUNSELOR: Jimmie Kaur APRN - JASMYN Preanesthetic Checklist [...] patient tolerated procedure well with no immediate complications[facility] Plan of care note* Care Plan - Clotilde Mg RN - 11/29/2022 7:45 AM EST The patient will continue to make cervical change. Clotilde Mg RN [facility] [id number] NotePatient: Driss Cope Procedure Information Date: 11/28/22 [...] products. patient is not NPO Additional Equipment [facility]01-03-2023 NoteLabor Progress Note Date: 11/28/2022 Time: 2:14 [...] time. FHT cat I and reassuring. CCM. Cx:70/-3 FHT: Cat 1 [place]:q3-4 min A/P: 1. IOL-PreEwSF. FHT 130 baseline, with moderate variability, Accelerations present Yes, and rare late deceleration . Cervical exam unchanged. Cytotec x4 placed at this time. Patient intermittently feeling contractions. BP mild range. Cx: 1-2/70/-3 FHP: defer FHT: Cat I [place]: a3-4min A/P: 1. IOL-PreEwSF: FHT Category I, [...] Cx: unchanged FHP: defer FHT: Cat I [place]: q4min A/P: 1. IOL-PreEwSF: FHT Category I, [...] 11/29/2022 6:17 AM Cx:1-2/60/-3 FHT: Cat I [place]:q4-5mins A/P: 1. IOL-PreEwSF: Cat I FHT with [...] per protocol. CCM. Cx:defer FHT: Cat I [place]:q4-6mins A/P: 1. IOL-PreEwSF: Cat I FHT with baseline 120, moderate variability, spontaneous accelerations, and no decelerations. BP normotensive to mild range since last note time. Pitocin @ 2 cc/hr, continue to titrate per protocol. Magnesium sulfate running for seizure prophylaxis, UOP 400 ml over past 4 hours. CCM. Cx:defer FHT: Cat I [place]:q4-5mins A/P: 1. IOL-PreEwSF: Cat I FHT with baseline 135, moderate variability, spontaneous accelerations, and no decelerations. BP normotensive to mild range since last note time. Pitocin @ 6 cc/hr, continue to titrate per protocol. Magnesium sulfate running for seizure prophylaxis, UOP 600 ml over past 4 hours. Will plan for AROM soon. CCM. Cx:defer FHT: Cat I [place]:irritability A/P: 1. IOL-PreEwSF: Pit @ 8 mu/min. Patient resting comfortably and only irritability tracing on toco. BP most recently mild range. On magnesium sulfate for seizure prophylaxis. UOP adequate. Continue magnesium and continue to titrate pitocin per protocol. Plan for AROM once patient rudi more regularly. Electronically signed by Cortney Velasquez DO 11/29/2022 4:21 PM Cx:/-3 FHT: Cat 1 [place]:Not tracing A/P: 1. IOL-PreEwSF. FHT 135 baseline, with moderate variability, Accelerations present Yes, and no decelerations seen . AROM at this time for moderate amount blood tinged fluid. Pitocin at 8cc/hr. Maternal BP mild range. On Magnesium for Seizure prophylaxis. Patient with adequate urinary output. CCM. Cx: defer FHP: defer FHT: Cat II [place]: not tracing well A/P: 1. IOL-PreEwSF: FHT Category II for brief period of lates vs early deceleration (more content not included)...[facility]01-03-2023 NoteObstetrical History and Physical CHIEF COMPLAINT: [...] 34w6d Is this patient being delivered between 17o5d-12s3r weeks with an acceptable medical indication (obstetric, maternal, and/or )? NA: Not Applicable: This patient is being delivered outside of the PC-01 range (31r9t-30t6w) for reasons indicated in the medical record. [...] VTE Prophylaxis: Not Indicated (more content not included)...[facility]01-03-2023 History and physical note* Cassie Constantino [...] 34w6d Is this patient being delivered between 42x0t-56o5r weeks with an acceptable medical indication (obstetric, maternal, and/or )? NA: Not Applicable: This patient is being delivered outside of the PC-01 range (36f4d-87y6o) for reasons indicated in the medical record. [...] plan. Cassie Constantino MD 11/28/2022, 12:48 AM [facility]01-03-2023 History and physical note* Cassie Constantino MD [...] 34w6d Is this patient being delivered between 65g3y-67g0r weeks with an acceptable medical indication (obstetric, maternal, and/or )? NA: Not Applicable: This patient is being delivered outside of the PC-01 range (20j3e-89d3r) for reasons indicated in the medical record. [...] wnl, will repeat on admission - Endorsing USH on admission with treat with tylenol Discussed with Dr Ryder and Kal, who agrees with plan. Cassie Constantino MD 11/28/2022, 12:48 AM documented in this [facility]01-02-2023 Evaluation + Plan note Extracted from: Title:OB High Risk Antepartum Visit * Author:WINSOME PRESCOTT MD Fredi Date:11/27/22 Impression and Plan Diagnosis 34 weeks 5 days. Preeclampsia. contractions. Maternal tachycardia.. Course: Worsening, New onset headache may be a signal of worsening symptoms of preeclampsia.. Orders I discussed this case with the maternal- medicine department at [facility], Dr. Thea Nieves, she accepted to transfer due to preeclampsia. Plan: Magnesium sulfate per protocol, betamethasone, transfer arrangements are in progress.. [facility]08-19-2022 Evaluation + Plan noteExtracted from: Title:ED [...] Colace and Proctofoam and follow-up with her DIRECTOR OF VOCATIONAL TRAINING physician in the outpatient setting. She is provided with a note for work. Additional diagnosis: Constipation, UTI and [facility]08-19-2022 Hospital Discharge instructions Follow Up Care 07/14/2022 06:07:36 With:Cruz Meza Address:Unknown When:07/17/2022 07:24:48 With:CRUZ RODRÍGUEZ Address: [address] [place] [address]- Business (1) When:Within 3 Day(s) [facility]08-19-2022 Hospital Discharge instructions Follow Up Care 07/14/2022 04:40:16 With:Cruz Meza Address: [address] [place] [address]- Business (1) When:07/17/2022 Comments:Appointment has already been scheduledCall Dr if fever>100.5 F, heavy bleedingCall for any problems.Call for severe abdominal painCall physician for heavy vaginal bleedingCall physician if symptoms worsenPlease call if you need to rescheduleReturn for contractions closer, longer, harderReturn ifruptured membranes or vaginal bleeding [facility]05-31-2022 Evaluation + Plan note Diagnostic Tests Pending * Okcmx-7-Ijgouuzdblz 04/25/22 * NIGEL w/Reflex if POS 04/25/22 * Ceruloplasmin 04/25/22 * HCV Antibody RFX to Quant PCR 04/25/22 * HBV Core Ab 04/25/22 * Hepatitis B Surface Antibody 04/25/22 * Hepatitis B Surface Antigen 04/25/22 * Smooth Muscle Antibody Screen 04/25/[address] [facility]05-24-2022 Evaluation note* Encounter Date Diagnosis Assessment Notes Treatment Notes Treatment Clinical Notes March, Elevated liver function tests (ICD-10 - R79.89) LABS INDICATED ABOVE [employer] Other Evaluation note* Diagnosis Pelvic pain in female- Primary Unspecified symptom associated with female genital organs [facility] Chronic pelvic pain in female- Primary Unspecified symptom associated with female genital organs Constipation, unspecified constipation type High-tone pelvic floor dysfunction Other specified disorders of female genital organs Diastasis of rectus abdominis Dysmenorrhea Other specified dyspareunia [facility] Diagnosis Endometriosis- Primary Endometriosis, site unspecified Pelvic and perineal pain Unspecified symptom associated with female genital organs [facility] Diagnosis Pelvic pain in female- Primary Unspecified symptom associated with female genital organs [facility] Diagnosis Pelvic pain in female- Primary Unspecified symptom associated with female genital organs [facility] Diagnosis High-tone pelvic floor dysfunction- Primary Other specified disorders of female genital organs Chronic pelvic pain in female Unspecified symptom associated with female genital organs [facility] Diagnosis Pelvic and perineal pain Unspecified symptom associated with female genital organs [facility] Diagnosis Menorrhagia with regular cycle Pelvic pain in female Unspecified symptom associated with female genital organs Uses control documented in this encounter [facility] HealthcareEvaluation note* Diagnosis Preeclampsia, severe, third trimester- Primary Preeclampsia, severe, third trimester documented in this encounter [facility]* Diagnosis Pre-eclampsia, severe, delivered- Primary documented in this encounter [facility]* Diagnosis Dysmenorrhea, unspecified documented in this encounter [facility] HealthcareEvaluation note* Diagnosis Well woman exam with routine gynecological exam Routine gynecological examination documented in this encounter [facility] HealthcareEvaluation note* Diagnosis Hypertension, unspecified type (CMS/HCC)- Primary Paroxysmal tachycardia, unspecified (CMS/HCC) Paroxysmal tachycardia, unspecified Chronic right shoulder pain Pain in joint, shoulder region Scapular dyskinesis Lack of coordination documented in this encounter [facility] HealthcareEvaluation note* Diagnosis Pain in female genitalia on intercourse Dyspareunia Endometriosis Endometriosis, site unspecified documented in this encounter [facility] HealthcareEvaluation noteNo assessment information availableT[facility] Work Phone: Evaluation note* Diagnosis Missed menses , unspecified gestational age Encounter for supervision of normal first in first trimester documented in this encounter [facility] HealthcareEvaluation note* Diagnosis Nonintractable episodic headache, unspecified headache type- Primary Second trimester (HHS-HCC) state, incidental 13 weeks gestation of ([facility]) documented in this encounter [facility] HealthcareEvaluation note* Diagnosis Sinusitis, unspecified chronicity, unspecified location- Primary Second trimester (HHS-HCC) state, incidental 17 weeks gestation of ([facility]-HCC) Screening, , for anatomic survey ([facility]) Encounter for anatomic survey documented in this encounter [facility] HealthcareEvaluation note* Diagnosis 20 weeks gestation of (HHS-HCC) Second trimester ([facility]) state, incidental Diabetes mellitus screening Screening for diabetes mellitus documented in this encounter [facility] HealthcareEvaluation note* Diagnosis Wellness examination- Primary Hypertension, unspecified type Lipid screening Screening for lipoid disorders documented in this encounter [facility] HealthcareEvaluation note* Diagnosis Wellness examination- Primary Hypertension, unspecified type Lipid screening Screening for lipoid disorders 24 weeks gestation of (HHS-HCC) Second trimester (HHS-HCC) state, incidental Elevated glucose tolerance test Impaired glucose tolerance test documented in this encounter [facility]* Diagnosis Gestational diabetes mellitus (GDM) in second trimester, gestational diabetes method of control unspecified [facility] Diagnosis Wellness examination- Primary Hypertension, unspecified type Lipid screening Screening for lipoid disorders 26 weeks gestation of (HHS-HCC) Second trimester (HHS-HCC) state, incidental induced hypertension, antepartum (HHS-HCC) Transient hypertension of , antepartum Gestational diabetes mellitus (GDM) in second trimester, gestational diabetes method of control unspecified (HHS-HCC) documented in this encounter [facility] HealthcareHistory general Narrative - Reported* Type Description Date Medical History headache Surgical History appendectomy Surgical History shoulder surgery Surgical History endometriosis [facility] [employer] Other History of Present illness Narrative* 26 [...] engaged x 1 year * working [facility] [employer] [place] [address] Work Phone: Hospital course Narrative No data available for this section [facility] No data available for this section [facility] HospitalInstructionsNot on filedocumented in this encounter [facility]Not [facility] filedocumented in this encounter [facility]InstructionsNot on filedocumented in this encounter [facility] note No data available for this section [facility] HospitalReason for visit NarrativePT HERE AT REQUEST OF DR RODRÍGUEZ FOR EVALUATION AND TREATMENT OF ELVATED LIVER FUNCTION- ( DR. SAMUEL PT), LABS FROM DR RODRÍGUEZ REVIEWED BY DR Iraheta [facility] Other Summary Purpose Family History Unknown Family [...] Bilateral ureterolysis Surgeon: Dr. Charlene Rodriguez Resident/Fellow/Other Condominium Association Manager: Glory Palacio Anesthesia: general I.V. Fluids: 500 [...] to discuss pain related to endometriosis, declined french edge operator. PSYCHOMETRICIAN Reason for Referral Specialty Diagnoses / Procedures Referred By Michaela house Referred To Contact MR IMAGING Diagnoses Pelvic and perineal pain Procedures MRI FEMALE PELVIS WO/W IVCON MRI PELVIS W/O & W/CONTRAST MATERIAL Charlene Rodriguez DO [address] [place] [address] Mr Imaging Referral ID Status Reason Start Date Expiration Date Visits Requested Visits Authorized [id number] Authorized Auto-Generat ed Referral 05/17/2023 06/15/2024 1 1 Specialty Diagnoses / Procedures Referred By Michaela house Referred To Contact [facility] Diagnoses Constipation, unspecified constipation type High-tone pelvic floor dysfunction Diastasis of rectus abdominis Dysmenorrhea Other specified dyspareunia Chronic pelvic pain in female Procedures CONSULT TO PHYSICAL THERAPY PHYSICAL THERAPY EVALUATION HIGH COMPLEX 45 MINS Srinivasa Downs, OPERATOR/ASSISTANT FOREMAN.PAINT MIXER HAND [address] [place] [id number] [facility] [place] [address] [place] [address] Referral ID Status Reason Start Date Expiration Date Visits Requested Visits Authorized [id number] Pending Review Auto-Generat ed Referral 05/01/2023 04/30/2024 1 1 Chief Complaint and Reason for Visit Chief Complaint Admit Date N94.10 N80.9 February 02, 2025 3:1 6pm Additional Source Comments INFORMATION SOURCE (unrecogn ized section and content) DATE CREATED AUTHOR 10/26/2020 [facility] DATE CREATED AUTHOR AUTHOR'S ORGANIZ ATION 11/06/2020 [facility] DATE CREATED AUTHOR AUTHOR'S ORGANIZ ATION 12/17/2020 [facility] DATE CREATED AUTHOR AUTHOR'S ORGANIZ ATION 04/21/2021 [facility] DATE CREATED AUTHOR AUTHOR'S ORGANIZ ATION 06/05/2021 [facility] DATE CREATED AUTHOR AUTHOR'S ORGANIZ ATION 10/02/2021 Tonya archuleta DATE CREATED AUTHOR AUTHOR'S ORGANIZ ATION 02/10/2022 [employer] DATE CREATED AUTHOR AUTHOR'S ORGANIZ ATION 12/05/2022 [facility] [employer] [facility] DATE CREATED AUTHOR AUTHOR'S ORGANIZ ATION 04/30/2024 [facility] DATE CREATED AUTHOR AUTHOR'S ORGANIZ ATION 02/09/2025 [facility] DATE CREATED AUTHOR AUTHOR'S ORGANIZ ATION 03/15/2025 [facility] DATE CREATED AUTHOR AUTHOR'S ORGANIZ ATION 08/03/2025 [facility] DATE CREATED AUTHOR AUTHOR'S ORGANIZ ATION 08/13/2025 [facility] DATE CREATED AUTHOR AUTHOR'S ORGANIZ ATION 08/16/2025 [facility] DATE CREATED AUTHOR AUTHOR'S ORGANIZ ATION 08/20/2025 [facility] DATE CREATED AUTHOR AUTHOR'S ORGANIZ ATION 08/21/2025 [facility] DATE CREATED AUTHOR AUTHOR'S ORGANIZ ATION 08/29/2025 [facility] DATE CREATED AUTHOR AUTHOR'S ORGANIZ ATION 08/30/2025 [facility] DATE CREATED AUTHOR AUTHOR'S ORGANIZ ATION 09/01/2025 [facility] dical Specialists [facility] Care Team (unrecognized sect ion and content) [employer] Fusion Developer Relationship Specialty Start Date End Date Cruz Rodríguez MD [address] [place] [phone] PCP - General Family Medicine 12/03/14 Oracle Fusion Developer Relationship Specialty Start Date End Date Cruz Rodríguez MD [address] [place] [phone] PCP - General Family Medicine 12/03/14 [employer] Developer Relationship Specialty Start Date End Date Cruz Rodríguez MD [address] [place] [phone] PCP - General Family Medicine 12/03/14 Oracle Fusion Developer Relationship Specialty Start Date End Date Cruz Rodríguez MD [address] [place] [phone] PCP - General Family Medicine 12/03/14 [employer] Developer Relationship Specialty Start Date End Date Cruz Rodríguez MD [address] [place] [phone] PCP - General Family Medicine 12/03/14 [employer] Developer Relationship Specialty Start Date End Date Cruz Rodríguez MD [address] [place] [phone] PCP - General Family Medicine 12/03/14 Oracle Fusion Developer Relationship Specialty Start Date End Date Cruz Rodríguez MD [address] [place] [address] PCP - General Family Medicine 12/03/14 [employer] Developer Relationship Specialty Start Date End Date Cruz Rodríguez MD [address] [place] [address] PCP - General Family Medicine 12/03/14 Oracle Fusion Developer Relationship Specialty Start Date End Date Cruz Rodríguez MD [address] [place] [phone] PCP - General Family Medicine 12/03/14 Oracle Fusion Developer Relationship Specialty Start Date End Date Cruz Rodríguez MD [address] [place] [address] PCP - General Family Medicine 12/03/14 Oracle Fusion Developer Relationship Specialty Start Date End Date Cruz Rodríguez MD [address] [place] [address] PCP - [facility] [employer] 09/26/21 Cruz Rodríguez MD [address] [place] [address] PCP - General Family Medicine 04/10/23 Cruz Rodríguez MD [address] [place] [address] PCP - [facility] 02/24/23 Zenobia [place] NP [address] [place] [address] Nurse Practitioner Family Medicine 10/05/23 Trista Thao NP [address] [place] [address] Nurse Practitioner Pulmonary Disease 10/05/23 [employer] Developer Relationship Specialty Start Date End Date Cruz Rodríguez MD [address] [place] [address] PCP - General Family Medicine 12/03/14 Oracle [employer] Developer Relationship Specialty Start Date End Date Cruz Rodríguez MD [address] [place] [address] PCP - General Family Medicine 12/03/14 Oracle Fusion Developer Relationship Specialty Start Date End Date Cruz Rodríguez MD [address] [place] [address] PCP - [facility] 09/26/21 Cruz Rodríguez MD [address] [place] [address] PCP - [facility] 02/24/23 Nay Beltran DO [address] [place] [address] PCP - General Family Medicine 02/14/24 [employer] Developer Relationship Specialty Start Date End Date Cruz Rodríguez MD [address] [place] [address] PCP - [facility] [employer] 09/26/21 Cruz Rodríguez MD [address] [place] [address] PCP - [facility] 02/24/23 Nay Beltran DO [address] [place] [address] PCP - General Family Medicine 02/14/24 Oracle Fusion Developer Relationship Specialty Start Date End Date Crzu Rodríguez MD [address] [place] [address] PCP - [facility] [employer] 09/26/21 Cruz Rodríguez MD [address] [place] [address] PCP - [facility] 02/24/23 Nay Beltran DO [address] [place] [address] PCP - General Family [facility] 02/14/24 Oracle Fusion Developer Relationship Specialty Start Date End Date Cruz Rodríguez MD [address] [place] [address] PCP - [facility] [employer] 09/26/21 Cruz Rodríguez MD [address] [place] [address] PCP - [facility] 02/24/23 Nay Beltran DO [address] [place] [id number] PCP - General Family Medicine 02/14/24 Oracle Fusion Developer Relationship Specialty Start Date End Date Cruz Rodríguez MD [address] [place] [phone] PCP - [facility] [employer] 09/26/21 Cruz Rodríguez MD [address] [place] [phone] PCP - [facility] 02/24/23 Nay Beltran DO [address] [place] [phone] PCP - General Family Medicine 02/14/24 Oracle Fusion Developer Relationship Specialty Start Date End Date Cruz Rodríguez MD [address] [place] [phone] PCP - [facility] [employer] 09/26/21 Nay Beltran DO [address] [place] [facility] PCP - General Family Medicine 02/14/24 Oracle Fusion Developer Relationship Specialty Start Date End Date Nay Beltran DO [address] [place], [facility] PCP - General Family Medicine 02/14/24 Oracle Fusion Developer Relationship Specialty Start Date End Date Nay Beltran DO [address] [place] [facility] PCP - General Family Medicine 02/14/24 Team Status: Active Member Role Status Dates Cruz Rodríguez MD Primary Care Provider Active Team Status: Inactive Member Role Status Dates Cruz Rodríguez MD Primary Care Provider Active S tart: February 02, 2025 End: February 02, 2025 Nathan Pop DO Attending Provider Active Start : February 02, 2025 End: February 02, 2025 Oracle Fusion Developer Relationship Specialty Start Date End Date Nay Beltran DO [address] [place] [address] PCP - General Family Medicine 02/14/24 Nay Beltran DO [address] [place] [address] PCP - [facility] [place] [facility] 07/27/24 11/25/99 Oracle Fusion Developer Relationship Specialty Start Date End Date Nay Beltran DO [address] [place] [address] PCP - General Family Medicine 02/14/24 Nay Beltran DO [address] [place] [address] PCP - [facility] [place] [employer] 07/27/24 11/25/99 [employer] Developer Relationship Specialty Start Date End Date Nay Beltran DO [address] [place] [address] PCP - General Family Medicine 02/14/24 Nay Beltran DO [address] [place] [address] PCP - [facility] [place] [employer] 07/27/24 11/25/99 [employer] Developer Relationship Specialty Start Date End Date Nay Beltran DO [address] [place] [address] PCP - General Family Medicine 02/14/24 Nay Beltran DO [address] [place] [address] PCP - Medical [place] [employer] 07/27/24 11/25/99 Oracle [employer] Developer Relationship Specialty Start Date End Date Nay Beltran, DO [address] [place] [address] PCP - General Family Medicine 02/14/24 Nay Beltran, DO [address] [place] [address] PCP - Medical [place] [employer] 07/27/24 11/25/99 Oracle Fusion Developer Relationship Specialty Start Date End Date Nay Beltran, DO [address] [place] [address] PCP - General Family Medicine 02/14/24 Nay Beltran, DO [address] [place] [address] PCP - Medical [place] [employer] 07/27/24 11/25/99 Oracle Fusion Developer Relationship Specialty Start Date End Date Nay Beltran, DO [address] [place] [address] PCP - General Family Medicine 02/14/24 Nay Beltran, DO [address] [place] [address] PCP - Medical [place] [employer] 07/27/24 11/25/99 Oracle Fusion Developer Relationship Specialty Start Date End Date Nay Beltran, DO [address] [place] [address] PCP - General Family Medicine 02/14/24 Nay Beltran DO [address] [place] [address] PCP - Medical [place] [employer] 07/27/24 11/25/99 Oracle Fusion Developer Relationship Specialty Start Date End Date Nay Beltran DO [address] [place] [address] PCP - General Family Medicine 02/14/24 Nay Beltran, DO [address] [place] [address] PCP - Medical [place] [employer] 07/27/24 11/25/99 [employer] Developer Relationship Specialty Start Date End Date Nay Beltran DO [address] [place] [address] PCP - General Family Medicine 02/14/24 Nay Beltran DO [address] [place] [address] PCP - Medical [place] [employer] 07/27/24 11/25/99 Oracle [employer] Developer Relationship Specialty Start Date End Date Nay Beltran DO [address] [place] [address] PCP - General Family Medicine 02/14/24 Nay Beltran, DO [address] [place] [address] PCP - Medical [place] [employer] 07/27/24 11/25/99 [employer] Developer Relationship Specialty Start Date End Date Cruz Rodríguez MD [address] [place] [address] PCP - General Family Medicine 12/02/18 Oracle Fusion Developer Relationship Specialty Start Date End Date Cruz Rodríguez MD [address] [place] [address] PCP - General Family Medicine 12/02/18 Oracle Fusion Developer Relationship Specialty Start Date End Date Nay Beltran DO [address] [place] [address] PCP - General Family Medicine 02/14/24 Nay Beltran DO [address] [place] [address] PCP - Medical [place] [employer] 07/27/24 11/25/99 [employer] Fusion Developer Relationship Specialty Start Date End Date Nay Beltran DO [address] [place], [facility] PCP - General Family Medicine 02/14/24 Nay Beltran DO [address] [place] [address] PCP - Medical [place] [employer] 07/27/24 11/25/99 Oracle Fusion Developer Relationship Specialty Start Date End Date Nay Beltran DO [address] [place] [address] PCP - General Family Medicine 02/14/24 Nay Beltran DO [address] [place] [address] PCP - Medical [place] [employer] 07/27/24 11/25/99 [employer] Developer Relationship Specialty Start Date End Date Nay Beltran DO [address] [place] [address] PCP - General Family Medicine 02/14/24 Nay Beltran DO [address] [place] [address] PCP - Medical [place] [employer] 07/27/24 11/25/99 [employer] Developer Relationship Specialty Start Date End Date Cruz Rodríguez MD [address] [place] [address] PCP - General Family Medicine 12/02/18 Source Comments (unrecognize d section and content) In the event this informatio n is protected by the Federal Confidentiality of Alcohol and Drug Abuse Patient Records regulations: The Federal rules restrict any use of the information to criminally investigate or prosecute any alcohol or drug abuse patient.[facility] the event this information is protected by the Federal Confidentiality of Alcohol and Drug Abuse Patient Records regulations: The Federal rules restrict any use of the information to criminally investigate or prosecute any alcohol or drug abuse patient.[facility] HospitalIn the event this information is protected by the Federal Confidentiality of Alcohol and Drug Abuse Patient Records regulations: The Federal rules restrict any use of the information to criminally investigate or prosecute any alcohol or drug abuse patient.[facility] HospitalIn the event this information is protected by the Federal Confidentiality of Alcohol and Drug Abuse Patient Records regulations: The Federal rules restrict any use of the information to criminally investigate or prosecute any alcohol or drug abuse patient.[facility] Hospital[facility] the event this information is protected by the Federal Confidentiality of Alcohol and Drug Abuse Patient Records regulations: The Federal rules restrict any use of the information to criminally investigate or prosecute any alcohol or drug abuse patient.[facility] HospitalIn the event this information is protected by the Federal Confidentiality of Alcohol and Drug Abuse Patient Records regulations: The Federal rules restrict any use of the information to criminally investigate or prosecute any alcohol or drug abuse patient.[facility] HospitalIn the event this information is protected by the Federal Confidentiality of Alcohol and Drug Abuse Patient Records regulations: The Federal rules restrict any use of the information to criminally investigate or prosecute any alcohol or drug abuse patient.[facility] HospitalIn the event this information is protected by the Federal Confidentiality of Alcohol and Drug Abuse Patient Records regulations: The Federal rules restrict any use of the information to criminally investigate or prosecute any alcohol or drug abuse patient.[facility] HospitalIn the event this information is protected by the Federal Confidentiality of Alcohol and Drug Abuse Patient Records regulations: The Federal rules restrict any use of the information to criminally investigate or prosecute any alcohol or drug abuse patient.[facility] HospitalIn the event this information is protected by the Federal Confidentiality of Alcohol and Drug Abuse Patient Records regulations: The Federal rules restrict any use of the information to criminally investigate or prosecute any alcohol or drug abuse patient.[facility] HospitalIn the event this information is protected by the Federal Confidentiality of Alcohol and Drug Abuse Patient Records regulations: The Federal rules restrict any use of the information to criminally investigate or prosecute any alcohol or drug abuse patient.[facility] HospitalIn the event this information is protected by the Federal Confidentiality of Alcohol and Drug Abuse Patient Records regulations: The Federal rules restrict any use of the information to criminally investigate or prosecute any alcohol or drug abuse patient.[facility] HospitalIn the event this information is protected by the Federal Confidentiality of Alcohol and Drug Abuse Patient Records regulations: The Federal rules restrict any use of the information to criminally investigate or prosecute any alcohol or drug abuse patient.[facility] HospitalIn the event this information is protected by the Federal Confidentiality of Alcohol and Drug Abuse Patient Records regulations: The Federal rules restrict any use of the information to criminally investigate or prosecute any alcohol or drug abuse patient.[facility] HospitalIn the event this information is protected by the Federal Confidentiality of Alcohol and Drug Abuse Patient Records regulations: The Federal rules restrict any use of the information to criminally investigate or prosecute any alcohol or drug abuse patient.[facility] Reason for Visit (unrecogniz ed section and content) Reason Comments Menstrual Problem Reason Comments Vaginal Bleeding Reason Comments Endometriosis Reason Comments Insurance Authorization [place] Reason Comments Pelvic Pain Specialty Diagnoses / Procedures Referred By Contac t Referred To Contact WAGON DRIVER SALESPERSON / GYNECOLOGY Diagnoses Painful menstrual periods Painful Periods Procedures OFFICE/OUTPATIENT ESTABLISHED MDM 10-19 MIN EST [facility] PATIENT Srinivasa Downs, OPERATOR/ASSISTANT FOREMAN.PAINT MIXER HAND [address] [place] [id number] Srinivasa Downs, OPERATOR/ASSISTANT FOREMAN.PAINT MIXER HAND [address] [place] [id number] Referral ID Status Reason Start Date Expiration Date V isits Requested Visits Authorized [id number] Authorized 08/20/2023 11/25/2023 1 99 Reason Comments Radiology MRI Specialty Diagnoses / Procedures Referred By Contac t Referred To Contact MR IMAGING Diagnoses Pelvic and perineal pain Procedures MRI FEMALE PELVIS WO/W IVCON MRI PELVIS W/O & W/CONTRAST MATERIAL Charlene Rodriguez, [address] [facility] [address] [place] [address] Mr Imaging [place] [address] Referral ID Status Reason Start Date Expiration Date V isits Requested Visits Authorized [id number] Closed Auto-Generate d Referral 05/17/2023 06/15/2024 1 1 Reason Onset Date Comments Refill Request 01/02/2024 Reason Comments Menorrhagia Cramping with bleedi ng Reason Comments Surgery Cancelled Specialty Diagnoses / Procedures Referred By Contac t Referred To Contact Diagnoses Preeclampsia, severe, third trimester Procedures O14.13 - Preeclampsia, severe, third trimester Ritu Ryder DO [address] [place] [address] [facility] [address] [place] [address] Referral ID Status Reason Start Date Expiration Date Visits Re quested Visits Authorized [id number] 1 1 Reason Comments Blood Pressure Check Reason Comments Dysmenorrhea Reason Comments Well Women Visit Reason Comments Shoulder Pain Reason Comments Painful Stickney Reason Comments Amenorrhea Reason Comments Routine Visit Reason Comments Gestational Diabetes Specialty Diagnoses / Procedures Referred By Contac t Referred To Contact Maternal and Medicine Diagnoses Gestational diabetes mellitus (GDM) in second trimester, gestational diabetes method of control unspecified Nathan Pop, DO [address] [facility] [address] [place] [address] Phone: tel: fax: Maternal- Medicine at [facility] [address] [place] [address] Phone: tel: fax: Referral ID Status Reason Start Date Expiration Date Visits Requested Visits Authorized [id number] Pending Review Specialty Services Required 08/20/2025 08/20/2026 1 1 Scheduled Active and Recently Administ ered Medications (unrecognized section and content) Medication Order 11/30/2022 12/01/2022 12/02/2022 ferrous sulfate tablet 325 mg 325 mg, Oral, 2 times daily with meals, First dose on Constance 11/30/22 at 0800, , Start if Hgb less [...] Carlson RN)1502 (New Bag - Provider: Alejandra Arcos, RN) 0112 (New Bag - Provider: Lani Fraga, DIALLO)0300 (Stopped - Provider: Lani Fraga RN) oxytocin (Pitocin) 30 units in 500 mL infusion (CANCELED) 1-20 paulo-units/min (1-20 mL/hr), IntraVENous, Continuous, Starting on Sun11/29/22 at 1115, Begin infusion at 1 apulo-unit/min (1 paulo-unit per min = 1 mL per hour) and increase by 1 paulo-unit/min after 30 minutes. Then increase by 2 paulo-units/min as needed, no faster than every 30 minutes, until labor is achieved. Labor is defined as contractions every 2-3 minutes with cervical changes or [place] units (MVU) greater than 200 in a [...] Carlson RN)1204 (Given - Provider: Alejandra Arcos, DIALLO)1931 (Given - Provider: Lani Fraga RN) 0551 [...] Anna Booth, DIALLO)1601 (Given - Provider: Anna Booth RN) lanolin [...] BE BASED ON THE PRIMARY CLINICAL RECORDS. [employer] provides no warranty or guarantee of the accuracy or completeness of information in this document.
[2025-09-03 17:20] VITALS: BP 136/85; PULSE 114
[2025-09-03] MEDS: LABETALOL HCL 100 MG TABLET 200 MG PO (17:23)
[2025-09-03 17:32] LABS: Hematocrit 34.5 % (36.0-48.0); Hemoglobin 11.3 g/dL (12.0-16.0); Immature Granulocytes Abs Auto 0.42 10^3/uL (0.00-0.03); Immature Granulocytes Pct Auto 3.7 % (0.0-0.5); Lymphocytes Absolute Auto 2.3 10^3/uL (1.2-3.8); Mean Corpuscular HGB Conc 32.8 g/dL (29.9-35.2); Mean Corpuscular Hemoglobin 29.2 pg (26.7-34.0); Mean Corpuscular Volume 89.1 fL (81.0-99.0); Platelet Count 270 10^3/uL (150-450); Red Blood Count 3.87 10^6/uL (4.20-5.40); White Blood Count 11.4 10^3/uL (4.0-11.0)
[2025-09-03 17:34] LABS: Total Protein Urine Random <6.0 mg/dL (<=11.9)
[2025-09-03 17:38] LABS: Alanine Aminotransferase 40 U/L (14-59); Aspartate Amino Transferase 24 U/L (15-37); Blood Urea Nitrogen 8.0 mg/dL (7.0-18.0); Estimated GFR (African America >60 (>=60 mL/min/1.73m^2); Estimated GFR (Non-African Ame >60 (>=60 mL/min/1.73m^2); Uric Acid 3.5 mg/dL (2.6-6.0)
[2025-09-03 17:41] VITALS: BP 134/78; PULSE 99
[2025-09-03 17:43] LABS: Partial Thromboplastin Time 26.1 sec (22.3-36.2); Prothrombin Time 9.8 sec (9.0-11.6)
[2025-09-03 17:45] LABS: Fibrinogen 405 mg/dL (200-400); INR <0.93
[2025-09-03 17:56] VITALS: BP 124/75; PULSE 103
--- OUTSIDE RECORDS SUMMARY | 2025-09-04 15:00 | XMS_ITS | Encounter Summary ---
Author Organization [facility] tem Address [id number] [address] [place] [address] Care Team Providers Care Material Reprocessing Associate Name Role Phone Cruz Rodríguez MD Primary Care Provider [phone] Reason for Visit * Reason Comments Gestational Diabetes Encounter Details Date Type Department Care Team (Late st Contact Info) Description 09/04/2025 3:00 PM EDT Office Visit Maternal- Medicine at [facility] [address] [facility] [place] [phone] Jean Carlos Denise MD [address] [facility] [address] [place] [address] Diet controlled gestational diabetes mellitus (GDM) in second trimester (Primary Dx); Essential hypertension affecting in third trimester Social History Tobacco Use Types Packs/Day Years [...] Employment Answer Date Recorded Employment Unknown 05/08/2019 Hunger Screening Answer Date Recorded Within the past 12 months we worried whether our food would run out before we got money to buy more. Never True 09/04/2025 Within the past 12 months th e food we bought just didn't last and we didn't have money to get more. Never True 09/04/2025 Purpose - Life Answer Date Recorded Purpose [...] Sign Reading Time Taken Comments Blood Pressure 149/93 09/04/2025 2:48 PM EDT Pulse 104 09/04/2025 2:48 PM EDT Temperature - - Respiratory Rate - - Oxygen Saturation - - Inhaled Oxygen Concentration - - Weight 72 kg (158 lb 12.8 oz) 09/04/2025 2:48 PM EDT Height 157.5 cm (5' 2.01 ) 09/04/2025 2:48 PM ED T Body Mass Index 29.04 09/04/2025 2:48 PM EDT documented in this encounter Progress Notes * Radha Magdaleno RN - 09/04/2025 3:00 PM EDT Headache/epigastric pain/blurry vision/swelling? Patient reports occasional headaches, states primary OB aware Cramping/contractions? No Spotting/vaginal bleeding? No Loss or gush of fluid like your water may have broken? No Do you have cats at home? No Do you change the litter box (reason: risk of toxoplasmosis)? N/A Genetic testing done this here or other office? Yes Have you been seen here at [facility] in a previous ? No Recent ER visits or hospitalizations? 09/03/25 Patti to r/o preeclampsia. Patient states labs WNL Bring blood sugar log or meter with you today? (Please bring them with you for every visit at [facility]) Yes Flu vaccine (Sep-January)? N/A Any concerns that you would like me to mention to the provider today? No * Jean Carlos Denise MD - 09/04/2025 3:00 PM EDT REASON FOR CONSULTATION: Maternal gestational diabetes. HISTORY OF PRESENT ILLNESS: Driss Gama is a pleasant 30 y.o. G 2 P0 101. at 27w6d due on Estimated Date of Delivery: 11/28/25 . Patient was seen today due to the following 1. Maternal essential hypertension currently on labetalol. Patient states that labetalol was increased. Patient will take 200 mg 3 times a day. 2. History of preeclampsia leading to medically indicated delivery. Patient currently not on low-dose aspirin therapy. 3. Maternal gestational diabetes A1 with persistently elevated blood glucose requiring initiation of medication. Currently the patient has no complaints. The patient denies nausea, vomiting, abdominal pain, vaginal bleeding, SOB or chest pain. Patient's PMH/PSH,SH,PSYCH Hx, MEDs, ALLERGIES, and ROS were all reviewed and updated in the appropriate sections. Patient Active Problem List Diagnosis Diet controlled gestational diabetes mellitus (GDM) in second trimester Essential hypertension affecting in third trimester Past Medical History: Diagnosis Date Endometriosis John San infection History of pre-eclampsia Hypertension Migraine Pleurisy Vision impairment PAST OBSTETRICAL HISTORY: OB History 2 Para 1 Term 0 1 AB Living 1 SAB IAB Ectopic Multiple Live Births 1 SURGICAL HISTORY: Past Surgical History: Procedure Laterality Date APPENDECTOMY 05/2016 DILATION AND CURETTAGE OF UTERUS 12/2022 retained placenta DISTAL CLAVICLE EXCISION Right 07/2018 LAPAROSCOPY DIAGNOSTIC / BIOPSY / ASPIRATION / LYSIS 02/2019 endometriosis LAPAROSCOPY DIAGNOSTIC / BIOPSY / ASPIRATION / LYSIS 02/29/2024 SHOULDER SURGERY Right 11/2022 ALLERGIES: No Known Allergies CURRENT MEDICATIONS: Current Outpatient Medications: labetaloL (NORMODYNE) 100 mg tablet, Take 1 tablet (100 mg total) by mouth 3 (three) times a day. Patient unsure exact dose, Disp: , Rfl: PNV no.95-ferrous fumarate-FA () 28 mg iron- 800 mcg tablet, Take 1 tablet by mouth in the morning., Disp: , Rfl: FAMILY/GENETIC HISTORY: No family history of VTE, cardiac defects and mental retardation . RECENT HOSPITALIZATION: none I did review all the labs results available in addition to labs which were ordered by the primary care physician, and the other consultants, we search on [employer] and all the available care everywhere epic I did review all the imaging studies of the patient available on EMR, ordered by the primary care physician and the other outbound sales consultant HABITS: Patient activity no restrictions, diet no restrictions REVIEW OF SYSTEM: Head and Neck: Negative for any dizziness and headaches. Cardiovascular and Respiratory System: Denies any chest pain, shortness of breath, and coughing. Abdominal and System: Denies any abdominal pain, nausea, vomiting, vaginal bleeding, and vaginal discharge PHYSICAL EXAMINATION: BP (!) 149/93 Pulse 104 Ht 157.5 cm (5' 2.01 ) Wt 72 kg (158 lb 12.8 oz) LMP 02/21/2025 (Exact Date) BMI 29.04 kg/m?? . Gravid abdomen, Respirations not labored. Well oriented time place person, normal gait MEDICAL DECISION MAKING DISCUSSION: We first started discussing the pathophysiology of metabolic syndrome and gestational diabetes and how it affects her care. We informed the patient that gestational diabetes is a state of carbohydrate intolerance with subsequently insulin resistance and hyperglycemia. This is a malfunctionor dysfunction of glucose sensors in the liver with inappropriate release of glucose followed by hyperinsulinemia followed by normal insulin secretion and then relatively deficiency in insulin secretion resulting in both hyperglycemia and associated hypertriglyceridemia. This along with placental hormones such as human placental lactogen and TNF alpha cause hyperglycemia . The patient eventually develops insulin resistance and hyperglycemia Thus the patient's insulin is not sufficient enough to achieve euglycemic state. We informed the patient that maternal hyperglycemia results in hyperglycemia leading to adverse outcomes in the growth and development. The patient was explained that this includes development of macrosomiaand excess fat deposits in the fetus as a result of excess insulin released from thefetal pancreas.In addition to that, she was also explained regarding relative oxygen deficiency resulting in fetalpolycythemia. This can result in sludging in small capillaries which if it occurs in critical areaslike brain can result in seizures. We also explained regarding the risk of developing hyper bilirubinemia as a result of rapid destruction of excess red blood cells after the has been delivered. We reviewed with her the strategy for improving and outcome should be to achieve euglycemic state. We explained to the patient that shewill need to maintain close contact with or diabetic team both in terms of frequent visits with her during her visits and also through electronic communication. The patient has already initiated this process and is very comfortable with this. We then discussed regarding the monitoring of the fetus in context with these risks and explained to the patient that she would require growth assessment every 4 weeks gestation. Patient was explained that the high risk of shoulder dystocia in fetuses with weight greater than 4500 gm RECOMMENDATION: 1. Labetalol increased to 200 mg q.8 hours. 2. Please obtain baseline 24 urine protein excretion of protein creatinine ratio along with a comprehensive metabolic profile through her OB office. 3. Lantus 10 units subQ at bedtime was started. Insulin teaching completed today in the office. 4. Continue checking blood glucose and remote evaluation through [facility] office until delivery. 5. Discontinue blood glucose evaluation and Lantus and offer formal glucose tolerance test. 6. Continue serial growth ultrasounds every 4 weeks at her OB office. 7. Initiate testing form once a week NST and LEONEL at 32 weeks gestation. 8. Continue labetalol 200 mg p.o. q.8 hours with a goal of keeping blood pressure at or below 140/90 and therefore medication can be titrated accordingly or Procardia can be added 9. Delivery at 38 weeks gestation based on maternal essential hypertension on medication criteria. 10. Vaginal delivery is to be anticipated with C section reserve for routine obstetrical indications. DISPOSITION: At this point the patient is in complete care of her veneer jointer operator. Patient does have ultrasound video visit scheduled with us. Thank you for allowing me to participate in Driss Gama . If there any questions please do not hesitate to contact us. Sincerely, JEAN CARLOS DENISE MD * Radha Magdaleno RN - 09/04/2025 3:00 PM EDT Patient instructed on insulin administration: when to take prescribed dose in relation to daily schedule, use of the insulin pen, how to give injection into the sub-Q tissue in relation to the gravidabdomen, rotation of injection sites, proper disposal of sharps and symptoms of hypoglycemia. Patient education materials given: insulin action chart, hypoglycemia management, proper disposal of sharps and procedure guide sheet for use of insulin pen. Patient returned demonstration. Questions answered. Encouraged to call office with questions or concerns. documented in this encounter Plan of Treatment Upcoming Encounters Date Type Department Care Team (Late st Contact Info) Description 09/10/2025 9:45 AM EDT Appointment Maternal Medicine [place] [address] [phone] 09/10/2025 11:00 AM EDT Telemedicine Maternal Medicine [place] [address] [phone] Quynh Clements MD [address] [address] 10/05/2025 3:00 PM EST Office Visit Maternal- Medicine at [facility] [address] [place] [phone] Kayleigh Rizzo PA-C [address] [address] documented as of this encounter Visit Diagnoses Diagnosis Diet controlled gestational diabetes mellitus (GDM) in second trimester- Primary Essential hypertension affecting in third trimester documented in this encounter Care Teams Material Reprocessing Associate Relationship Specialty Start Date End Date Cruz Rodríguez MD [address] [place] [address] PCP - General Family Medicine 12/02/18 documented as of this encounter
--- OUTSIDE RECORDS SUMMARY | 2025-09-06 13:21 | XMS_ITS | Encounter Summary ---
Author Organization [facility] Address [address] [place] [address] Care Team Providers Care Radiologic Electronic Specialist Name Role Phone Cruz Rodríguez MD Unavailable [phone] Cruz Rodríguez MD Primary Care Provider [phone] Cruz Rodríguez MD Unavailable + [phone] Zenobia East CHECKER IN Unavailable Trista Thao CHECKER IN Unavailable [phone] Eliceo Beltran DO Primary Care Provider [phone] Eliceo Beltran DO Unavailable [phone] Encounter Details Date Type Department Care Team (Late st Contact Info) Description 09/10/2023 Abstract [facility] [place] [address] [facility] [address] [place] [phone] Rosio Booth DPM [address] [facility] [address] [place] [address] Social History Tobacco Use Types Packs/Day Years [...] 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 file [...] PM EDT Routine [facility] [address] [place] [phone] Zenobia Gutierrez PA [address] [facility] [place] [address] documented as of this encounter Visit Diagnoses Not on filedocumented in this encounter Care Teams Radiologic Electronic Specialist Relationship Specialty Start Date End Date Cruz Rodríguez MD [address] [place] [phone] PCP - [facility] 09/26/2111/25 Cruz Rodríguez MD [address] [place] [address] PCP - General Family Medicine 04/10/23 02/13/24 Cruz Rodríguez MD [address] [place] [address] PCP - [facility] 02/24/23 4 Eliceo Beltran DO [address] [place] [address] PCP - General Family Medicine 02/14/24 Eliceo Beltran DO [address] [place] [address] PCP - Medical [employer] 07/27/24 11/25/99 Zenobia East NP [address] [place] [address] Nurse Practitioner Family Medicine 10/05/23 04/14/24 Trista Thao, CHECKER IN [address] [place] [address] Nurse Practitioner Pulmonary Disease 10/05/23 04/14/24 documented as of this encounter
--- OUTSIDE RECORDS SUMMARY | 2025-09-06 13:21 | XMS_ITS | Encounter Summary ---
Author Organization [facility] Address [address] [place] [address] Care Team Providers Care Youth Court Judge Name Role Phone NirajEliceo kauffman Primary Care Provider [phone] [place] Eliceo Hurtado DO Unavailable [phone] Encounter Details Date Type Department Care Team (Late st Contact Info) Description 05/11/2025 Abstract [facility] [address] [facility] [place] [phone] Nathan Pop DO [address] [facility] [address] Shereen Armstrong, [facility] Social History Tobacco Use Types Packs/Day [...] How often do you attend chur or evangelical services? Patient declined 12/29/2024 Do you belong [...] Recorded Patient Health Questionnaire-2 Score 0 12/30/2024 [facility] [...] in a intermediate (including now)? No 09/19/2023 Housing Stability Vital Sign Answer Kang e Recorded In the last 12 months, was t here a time when you were not able to pay the mortgage or rent on time? No 12/29/2024 Number of Times Moved in the Last Year Not on fi le 12/29/2024 At any time in the past 12 m [facility], were you homeless or living in a intermediate (including now)? 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 Not on file Not on file documented as of this encounter Plan of Treatment Upcoming Encounters Date Type Department Care Team (Late st Contact Info) Description 09/15/2025 2:50 PM EDT Routine [facility] [address] [facility] [place] [phone] Zenobia Gutierrez PA [address] [place] [address] documented as of this encounter Visit Diagnoses Not on filedocumented in this encounter Care Teams Youth Court Judge Relationship Specialty Start Date End Date Eliceo Beltran DO [address] [facility] [address] [place] [address] PCP - General Family Medicine 02/14/24 Eliceo Beltran DO [address] [facility] [address] [place] [address] PCP - Medical [place] [employer] 07/27/24 11/25/99 documented as of this encounter
--- OUTSIDE RECORDS SUMMARY | 2025-09-06 13:21 | XMS_ITS | Encounter Summary ---
Author Organization [facility] Address [address] [facility] [place] [address] Care Team Providers Care Senior Tax Manager Name Role Phone Eliceo Beltran DO Primary Care Provider [phone] Eliceo Beltran DO Unavailable [phone] Encounter Details Date Type Department Care Team (Late st Contact Info) Description 08/12/2025 Abstract [facility] [address] [facility] [address] [place] [phone] Eliceo Beltran DO [address] [facility] [address] [place] [address] Social History Tobacco Use Types Packs/Day Years [...] How often do you attend chur or sabianism services? 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 Not on file Not on file documented as of this encounter Plan of Treatment Upcoming Encounters Date Type Department Care Team (Late st Contact Info) Description 09/15/2025 2:50 PM EDT Routine [facility] [address] [facility] [place] [phone] Zenobia Gutierrez PA [address] [facility] [place] [address] documented as of this encounter Visit Diagnoses Not on filedocumented in this encounter Care Teams Senior Tax Manager Relationship Specialty Start Date End Date Eliceo Beltran DO [address] [address] PCP - General Family Medicine 02/14/24 Eliceo Beltran DO [address] [address] PCP - Medical [employer] 07/27/24 11/25/99 documented as of this encounter
--- OUTSIDE RECORDS SUMMARY | 2025-09-06 13:21 | XMS_ITS | Encounter Summary ---
Author Organization [facility] Address [address] [place] [address] Care Team Providers Care Reservoir Engineer Name Role Phone NirajEliceo kauffman Primary Care Provider [phone] [place] Eliceo Hurtado DO Unavailable [phone] Encounter Details Date Type Department Care Team (Late st Contact Info) Description 08/20/2025 Abstract [facility] [address] [facility] [place] [phone] Nathan Pop DO [address] [facility] [address] Shereen Armstrong, [facility] Social [...] How often do you attend chur or orthodoxy services? 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 Not on file Not on file documented as of this encounter Plan of Treatment Upcoming Encounters Date Type Department Care Team (Late st Contact Info) Description 09/15/2025 2:50 PM EDT Routine [facility] [address] [facility] [place] [phone] Zenobia Gutierrez PA [address] [facility] [place] [address] documented as of this encounter Visit Diagnoses Not on filedocumented in this encounter Care Teams Reservoir Engineer Relationship Specialty Start Date End Date Eliceo Beltran DO [address] [facility] [address] [place] [address] PCP - General Family Medicine 02/14/24 Eliceo Beltran DO [address] [facility] [address] [place] [address] PCP - Medical [place] [employer] 07/27/24 11/25/99 documented as of this encounter
--- OUTSIDE RECORDS SUMMARY | 2025-09-06 13:21 | XMS_ITS | Encounter Summary ---
Author Organization [facility] Address [address] [facility] [place] [address] Care Team Providers Care [employer] Special Education Teacher Name Role Phone Cruz Rodríguez MD Unavailable + 54 Cruz Rodríguez MD Primary Care Provider + [phone] Cruz Rodríguez MD Unavailable + 54 Zen[place] AERIAL HURRICANE HUNTER Unavailable Trista Thao AERIAL HURRICANE HUNTER Unavailable [phone] Eliceo Beltran DO Primary Care Provider [phone] Eliceo Beltran DO Unavailable [phone] Encounter Details Date Type Department Care Team (Late st Contact Info) Description 02/13/2024 Clinisync Result Encounter [facility] External Department Unsolicited Jony Pop DO [address] [facility] [place] [address] Social History Tobacco Use Types Packs/Day Years [...] How often do you attend [facility] or muslim services? Patient declined 09/19/2023 Do you belong to any clubs o r organizations such as rastafarian groups, unions, fraternal or athletic groups, or [...] Recorded Patient Health Questionnaire-2 Score 0 10/23/2023 [facility] [place] of Occupat ional Health - Occupational Stress [...] money to buy more. Never true 09/19/20 Within the past 12 months, t he [...] in a retirement (including now)? 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 on file Not on file documented as of this encounter Plan of Treatment Upcoming Encounters Date Type Department Care Team (Late st Contact Info) Description 09/15/2025 2:50 PM EDT Routine [facility] Patti MOODY [address] [facility] [address] Zenobia Gutierrez PA [address] [place] [address] documented as of this encounter Procedures Procedure Name Priority Date/Time Associated Diagnosis Comments ECG 12-LEAD 02/13/2024 2:55 PM EDT documented in this encounter Results * ECG 12-LEAD (02/13/2024 2:55 PM EDT) Anatomical Region Laterality Modality Other 02/13/2024 2:55 PM EDT Narrative 02/14/2024 6:50 AM EDT [place] [id number] Electrocardiograph Report Signed Patient: DRISS COPE MR#: [id number] : 1995 Acct:[id number] Age/Sex: 28 / F ADM Date: 02/13/24 Loc: PST Attending Dr: Jony Pop D.O. Ordering Physician: Jony Pop D.O. 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 Signed By: 02/14/24 0650 DD/ 1455 TD/TT: Integration Consultant: Procedure Note Radiology, Radiologist, MD - 02/14/2024 [facility] [place] [id number] Electrocardiograph Report Signed Patient: DRISS COPE MMR#: [id number] : 1995Acct:[id number] Age/Sex: 28 / FADM Date: 02/13/24 Loc: PST Attending Dr: Jony Pop D.O. Ordering Physician: Jony Pop D.O. Date of Service: 02/13/24 Procedure(s): ECG 12 lead Accession Number(s): [id number] cc: [facility] Test Date: 2024-02-13 Pat Name: DRISS COPE Department: Room: - Gender: Female Utility Worker [employer] [place]: : 1995 Requested By: JONY POP Order Number: [id number] Reading MD: RAMSEY ORDAZ Measurements Intervals [place]cano Rate: 86 P: 31 AK: 133 QRS: 20 QRSD: 89 T: 47 QT: 374 QTc: 449 Interpretive Statements SINUS RHYTHM No previous ECG available for comparison Electronically Signed On 02-14-2024 6:50:27 EDT by RAMSEY ORDAZ Dictated By: Ramsey Ordaz D.O. Signed By:02/14/24 0650 DD/ 1455 TD/TT: Integration Consultant: us Jony Pop DO [facility] Final Result documented in this encounter Visit Diagnoses Not on filedocumented in this encounter Care Teams High [employer] Special Education Teacher Relationship Specialty Start Date End Date Cruz Rodríguez MD [address] [place] [address] PCP - [place] [employer] 09/26/2111/25 Cruz Rodríguez MD [address] [place] [address] PCP - General Family Medicine 04/10/23 02/13/24 Cruz Rodríguez MD [address] [place] [address] PCP - [facility] 02/24/23 4 Eliceo Beltran DO [address] [place] [address] PCP - General Family Medicine 02/14/24 Eliceo Beltran DO [address] [place] [address] PCP - Medical [place] [employer] 07/27/24 11/25/99 Zenobia [place] NP [address] [place] [address] Nurse Practitioner Family Medicine 10/05/23 04/14/24 Trista Thao NP [address] [place] [address] Nurse Practitioner Pulmonary Disease 10/05/23 04/14/24 documented as of this encounter
--- OUTSIDE RECORDS SUMMARY | 2025-09-06 13:21 | XMS_ITS | Encounter Summary ---
Author Organization [facility] Address [address] [place] [address] Care Team Providers Care Media Planner / Buyer Name Role Phone Eliceo Beltran Primary Care Provider [phone] CharlottecarolEliceo Unavailable [phone] Encounter Details Date Type Department Care Team (Late st Contact Info) Description 08/27/2025 Bamboo flowsheet [facility] Patti OBGYN [address] [place] [address] Steph Keane, USER EXPERIENCE ARCHITECT [address] [place] [address] Social History Tobacco Use Types Packs/Day [...] week 12/29/2024 How often do you attend [facility] or jew services? 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 Not on file Not on file documented as of this encounter Plan of Treatment Upcoming Encounters Date Type Department Care Team (Late st Contact Info) Description 09/15/2025 2:50 PM EDT Routine [facility] Patti MOODY [address] [place] [phone] Zenobia Gutierrez PA [address] [place] [address] documented as of this encounter Visit Diagnoses Not on filedocumented in this encounter Care Teams Media Planner / Buyer Relationship Specialty Start Date End Date Eliceo Beltran DO [address] [place] [address] PCP - General Family Medicine 02/14/24 Eliceo Beltran DO [address] [place] [address] PCP - Medical [place] [employer] 07/27/24 11/25/99 documented as of this encounter
--- OUTSIDE RECORDS SUMMARY | 2025-09-06 13:21 | XMS_ITS | Encounter Summary ---
Author Organization [facility] Address [address] [facility] [place] [address] Care Team Providers Care Printing Supervisor Name Role Phone Eliceo Beltran DO Primary Care Provider [phone] Eliceo Beltran DO Unavailable [phone] Encounter Details Date Type Department Care Team (Late st Contact Info) Description 08/17/2025 Abstract [facility] [place] [facility] [address] [facility] [address] [place] [phone] Eliceo Beltran DO [address] [facility] [address] [place] [address] Social History Tobacco Use Types Packs/Day Years [...] How often do you attend chur or catholic services? 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 file Not on file documented as of this encounter Plan of Treatment Upcoming Encounters Date Type Department Care Team (Late st Contact Info) Description 09/15/2025 2:50 PM EDT Routine [facility] Patti MOODY [address] [facility] [place] [address] Zenobia Gutierrez PA [address] [place] [address] documented as of this encounter Visit Diagnoses Not on filedocumented in this encounter Care Teams Printing Supervisor Relationship Specialty Start Date End Date Eliceo Beltran DO [address] [address] PCP - General Family Medicine 02/14/24 Eliceo Beltran DO [address] [address] PCP - Medical [place] [employer] 07/27/24 11/25/99 documented as of this encounter
--- OUTSIDE RECORDS SUMMARY | 2025-09-06 13:21 | XMS_ITS | Encounter Summary ---
Author Organization [facility] Address [address] [facility] [place] [address] Care Team Providers Care Machine Tester Name Role Phone Cruz Rodríguez MD Unavailable + [phone] Cruz Rodríguez MD Primary Care Provider [phone] Cruz Rodríguez MD Unavailable + 54 [place] AFFIRMATIVE ACTION SPECIALIST Unavailable Trista Thao AFFIRMATIVE ACTION SPECIALIST Unavailable [phone] Eliceo Beltran DO Primary Care Provider [phone] Eliceo Beltran DO Unavailable [phone] Encounter Details Date Type Department Care Team (Late st Contact Info) Description 09/17/2023 Abstract [facility] [address] [place] [address] Cruz Rodríguez MD [address] [place] [address] Social History Tobacco Use Types Packs/Day Years [...] How often do you attend chur or baptism services? Patient declined 09/19/2023 Do you belong to any clubs o r organizations such as alevism groups, unions, fraternal or athletic groups, or [...] and heating? Not hard at all 09/19/2023 [facility] [employer] of Occupat ional Health - Occupational Stress [...] in a mcfp (including now)? 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 No / Unsure 09/19/2023 8:30 AM EDT documented as of this encounter Functional Status * AUDIT-C Score Answer Date of Assessment Author 1 [...] PM EDT Routine [facility] P[facility] OBGYN [address] [facility] [place] [address] Zenobia Gutierrez PA [address] [facility] [address] [place], [place] [address] documented as of this encounter Visit Diagnoses Not on filedocumented in this encounter Care Teams Machine Tester Relationship Specialty Start Date End Date Cruz Rodríguez MD [address] [place] [id number] PCP - [place] [employer] 09/26/2111/25 Cruz Rodríguez MD [address] [place] [id number] PCP - General Family Medicine 04/10/23 02/13/24 Cruz Rodríguez MD [address] [place] [id number] PCP - [facility] 02/24/23 4 Eliceo Beltran DO [address] [place] [address] PCP - General Family Medicine 02/14/24 Eliceo Beltran DO [address] [place] [address] PCP - Medical [place] [employer] 07/27/24 11/25/99 Zenobia [place] NP [address] [place] [id number] Nurse Practitioner Family Medicine 10/05/23 04/14/24 Trista Thao NP [address] [place] [address] Nurse Practitioner Pulmonary Disease 10/05/23 04/14/24 documented as of this encounter
--- OUTSIDE RECORDS SUMMARY | 2025-09-06 13:21 | XMS_ITS | Encounter Summary ---
Author Organization [facility] Address [address] [place] [address] Care Team Providers Care Wool Hat Hydraulicker Name Role Phone Eliceo Beltran DO Primary Care Provider [phone] Eliceo Beltran DO Unavailable [phone] Encounter Details Date Type Department Care [...] How often do you attend chur or jewish services? 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 [place] [phone] Zenobia Gutierrez PA [address] [place] [address] documented as of this encounter Procedures Procedure Name Priority Date/Time Associated Diagnosis Comments URINE CULTURE, ROUTINE Routine 08/25/2025 8:10 AM EDT documented in this encounter Results * URINE CULTURE, ROUTINE (08/25/2025 8:10 AM EDT) URINE CULTURE, ROUTINE Urine Culture, Routine [facility] URINE CULTURE, ROUTINE Mixed urogenital robert TB URINE CULTURE, ROUTINE 25,000-50,000 colony forming units per mL [facility] URINE CULTURE, ROUTINE Performed at: [facility], [facility]OUTINE [address] [place], [place] [id number] [facility] URINE CULTURE, ROUTINE Mobile Application Developer: Cm Sandoval PhD, Phone: [phone] [facility] 08/25/2025 8:10 AM EDT 08/25/2025 8:30 AM EDT Narrative [facility] - 08/26/2025 10:07 PM EDT us Generic External Data Provider LAB BLOOD ORDERAB LES Final Result Performing Organization Address City/State/[facility] Co de Phone Number [facility] documented in this encounter Visit Diagnoses Not on filedocumented in this encounter Care Teams Wool Hat Hydraulicker Relationship Specialty Start Date End Date Eliceo Beltran DO [address] [facility] [address] [place] [address] PCP - General Family Medicine 02/14/24 Eliceo Beltran DO [address] [place] [address] PCP - Medical [place] [employer] 07/27/24 11/25/99 documented as of this encounter
--- OUTSIDE RECORDS SUMMARY | 2025-09-06 13:21 | XMS_ITS | Encounter Summary ---
Author Organization [facility] Address [address] [facility] [place] [address] Care Team Providers Care Steam Crane Operator Name Role Phone Eliceo Beltran DO Primary Care Provider [phone] Eliceo Beltran DO Unavailable [phone] Encounter Details Date Type Department Care Team (Late st Contact Info) Description 08/17/2025 Abstract [facility] [place] [facility] [address] [facility] [address] [place] [phone] Eliceo Beltran DO [address] [facility] [address] [place] [address] Social History Tobacco Use Types Packs/Day Years [...] How often do you attend chur or worship services? 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 file Not on file documented as of this encounter Plan of Treatment Upcoming Encounters Date Type Department Care Team (Late st Contact Info) Description 09/15/2025 2:50 PM EDT Routine [facility] Patti MOODY [address] [facility] [place] [address] Zenobia Gutierrez PA [address] [facility] [place] [address] documented as of this encounter Visit Diagnoses Not on filedocumented in this encounter Care Teams Steam Crane Operator Relationship Specialty Start Date End Date Eliceo Beltran DO [address] [address] PCP - General Family Medicine 02/14/24 Eliceo Beltran DO [address] [address] PCP - Medical [place] [employer] 07/27/24 11/25/99 documented as of this encounter
--- OUTSIDE RECORDS SUMMARY | 2025-09-06 13:22 | XMS_ITS | Encounter Summary ---
Author Organization [facility] Address [address] [facility] [place] [address] Care Team Providers Care Student Admissions Clerk Name Role Phone Cruz Rodríguez MD Unavailable + [phone] Cruz Rodríguez MD Primary Care Provider [phone] Cruz Rodríguez MD Unavailable + 54 [place] LAND SURVEYOR MANAGER Unavailable Trista Thao LAND SURVEYOR MANAGER Unavailable [phone] Eliceo Beltran DO Primary Care Provider [phone] Eliceo Beltran DO Unavailable [phone] Encounter Details Date Type Department Care Team (Late st Contact Info) Description 04/23/2023 Abstract [facility] [address] [place] [address] Cruz Rodríguez MD [address] [place] [address] Social History Tobacco Use Types Packs/Day Years [...] 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 Not [...] [address] [facility] [place] [phone] Zenobia Gutierrez PA [address] [facility] [address] [place], [place] [phone] documented as of this encounter Visit Diagnoses Not on filedocumented in this encounter Care Teams Student Admissions Clerk Relationship Specialty Start Date End Date Cruz Rodríguez MD [address] [place] [address] PCP - [facility] 09/26/2111/25 Cruz Rodríguez MD [address] [place] [address] PCP - General Family Medicine 04/10/23 02/13/24 Cruz Rodríguez MD [address] [place] [address] PCP - [facility] 02/24/23 4 Eliceo Beltran DO [address] [place] [address] PCP - General Family Medicine 02/14/24 Eliceo Beltran DO [address] [place] [address] PCP - Medical [place] [employer] 07/27/24 11/25/99 Zenobia [place] NP [address] [place] [address] Nurse Practitioner Family Medicine 10/05/23 04/14/24 Trista Thao NP [address] [place] [address] Nurse Practitioner Pulmonary Disease 10/05/23 04/14/24 documented as of this encounter
--- OUTSIDE RECORDS SUMMARY | 2025-09-06 13:22 | XMS_ITS | Encounter Summary ---
Author Organization [facility] Address [address] [place] [address] Care Team Providers Care Swatch Maker Name Role Phone Eliceo Beltran DO Primary Care Provider [phone] Eliceo Beltran DO Unavailable [phone] Encounter Details Date Type Department Care Team (Late st Contact Info) Description 09/03/2025 Clinisync Result Encounter [facility] External Department Unsolicited Nathan Pop DO [address] [place] [address] Social History Tobacco Use Types Packs/Day Years [...] How often do you attend chur or christianity services? Patient declined 12/29/2024 Do you belong to any clubs o r organizations such as muslim groups, unions, fraternal or athletic groups, or [...] Recorded Patient Health Questionnaire-2 Score 0 07/30/2025 [facility] of Occupat ional Health [...] place to sleep or slept in a long-term (including now)? No 09/19/2023 Housing Stability Vital Sign Answer Kang e Recorded In the last 12 months, was t here a time when you were not able to pay the mortgage or rent on time? No 12/29/2024 Number of Times Moved in the Last Year Not on fi le 12/29/2024 At any time in the past 12 m [facility], were you homeless or living in a long-term (including now)? 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 Not on file documented as of this encounter Plan of Treatment Upcoming Encounters Date Type Department Care Team (Late st Contact Info) Description 09/15/2025 2:50 PM EDT Routine [facility] Patti MOODY [address] [facility] [facility] [place] [address] Zenobia Gutierrez PA [address] [place] [address] documented as of this encounter Procedures Procedure Name Priority Date/Time Associated Diagnosis Comments TBH CREATININE Routine 09/03/2025 5:15 PM EDT SRMCOH PROTHROMBIN TIME INR W/O COUM Routine 09/03/2025 5:15 PM EDT MHPT FIBRINOGEN Routine 09/03/2025 5:15 PM EDT [facility] AST Routine 09/03/2025 5:15 PM EDT [facility] APTT Routine 09/03/2025 5:15 PM EDT [facility]CF ALT Routine 09/03/2025 5:15 PM EDT ALL URIC ACID Routine 09/03/2025 5:15 PM EDT ALL CBC WITH AUTO DIFF Routine 09/03/2025 5:15 PM EDT ALL BUN Routine 09/03/2025 5:15 PM EDT TBH URINE T PROTEIN CREAT RATIO Routine 09/03/2025 5:05 PM EDT documented in this encounter Results * (ABNORMAL) ALL CBC WITH AUTO DIFF (09/03/2025 5:15 PM EDT) TBH WBC 11.4(H) 4.0 - 11.0 10 3/uL TBH TBH RBC 3.87(L) 4.20 - 5.40 10 6/uL TBH TBH HGB 11.3(L) 12.0 - 16.0 g/dL TBH TBH HCT 34.5(L) 36.0 - 48.0 % TBH TBH MCV 89.1 81.0 - 99.0 fL TBH TBH MCH 29.2 26.7 - 34.0 pg TBH TBH MCHC 32.8 29.9 - 35.2 g/dL TBH TBH RDW 13.6 11.0 - 15.0 % TBH TBH PLT 270 150 - 450 10 3/uL TBH TBH MPV 9.8 9.5 - 13.5 fL TBH NEUTROPHILS PERCENT AUTO 66.2 43.0 - 75.0 % TBH LYMPHOCYTES PERCENT AUTO 20.5 20.5 - 60.0 % TBH MONOCYTES PERCENT AUTO 7.4 1.7 - 12.0 % TBH TBH EO % 1.6 0.9 - 7.0 % TBH BASOPHILS PERCENT AUTO 0.6 0.2 - 2.0 % TBH IMMATURE GRANULOCYTES PCT AUTO 3.7(H) 0.0 - 0.5 % TBH NEUTROPHILS ABSOLUTE AUTO 7.5(H) 1.4 - 6.5 10 3/uL TBH LYMPHOCYTES ABSOLUTE AUTO 2.3 1.2 - 3.8 10 3/uL TBH MONOCYTES ABSOLUTE AUTO 0.8 0.3 - 0.8 10 3/uL TBH TBH EO # 0.2 0.0 - 0.7 10 3/uL TBH BASOPHILS ABSOLUTE AUTO 0.1 0.0 - 0.1 10 3/uL TBH IMMATURE GRANULOCYTES ABS AUTO 0.42(H) 0.00 - 0.03 10 3/uL TBH 09/03/2025 5:15 PM EDT 09/03/2025 5:21 PM EDT Narrative CLINISYNC - 09/03/2025 5:45 PM EDT us Nathan Kiesha DO CLINISYNC Final Result [facility] * (ABNORMAL) MHPT FIBRINOGEN (09/03/2025 5:15 PM EDT) FIBRINOGEN 405(H) 200 - 400 mg/dL TBH 09/03/2025 5:15 PM EDT 09/03/2025 5:21 PM EDT Narrative CLINISYNC - 09/03/2025 5:45 PM EDT Nathan Kiesha DO CLINISYNC Final Result Performing Organization Address [facility]/ZIP Co de Phone Number [facility] * CCF APTT (09/03/2025 5:15 PM EDT) PARTIAL THROMBOPLASTIN TIME 26.1 22.3 - 36.2 sec TB 09/03/2025 5:15 PM EDT 09/03/2025 5:21 PM EDT Narrative CLINISYNC - 09/03/2025 5:45 PM EDT Nathan Cabrerao DO CLINISYNC Final Result Performing Organization Address [facility] Co de Phone Number [facility] * SRMCOH PROTHROMBIN TIME INR W/O COUM (09/03/2025 5:15 PM EDT) PROTHROMBIN TIME 9.8 9.0 - 11.6 sec TB TB INR <0.93 TB Comment: DESIRED INR: 2.0-3.0 CONDITIONS NOT LISTED BELOW 2.5-3.5 FOR PROSTHETIC HEART VALVE REPLACEMENT 2.5-3.5 RECURRENT THROMBOSIS 09/03/2025 5:15 PM EDT 09/03/2025 5:21 PM EDT Narrative CLINISYNC - 09/03/2025 5:45 PM EDT Nathan Cabrerao DO CLINISYNC Final Result Performing Organization Address [facility] Co de Phone Number [facility] * CCF ALT (09/03/2025 5:15 PM EDT) ALANINE AMINOTRANSFERASE 40 14 - 59 U/L TB 09/03/2025 5:15 PM EDT 09/03/2025 5:21 PM EDT Narrative CLINISYNC - 09/03/2025 5:40 PM EDT Nathan Kiesha DO CLINISYNC Final Result CLINISYNC TB * CCF AST (09/03/2025 5:15 PM EDT) ASPARTATE AMINO TRANSFERASE 24 15 - 37 U/L TBH 09/03/2025 5:15 PM EDT 09/03/2025 5:21 PM EDT Narrative CLINISYNC - 09/03/2025 5:40 PM EDT Nathan Kiesha DO CLINISYNC Final Result Performing Organization Address [facility]/ZIP Co de Phone Number CLINISYNC TB * ALL URIC ACID (09/03/2025 5:15 PM EDT) URIC ACID 3.5 2.6 - 6.0 mg/dL TBH 09/03/2025 5:15 PM EDT 09/03/2025 5:21 PM EDT Narrative CLINISYNC - 09/03/2025 5:40 PM EDT Anthan Kiesha DO CLINISYNC Final Result Performing Organization Address [facility] Co de Phone Number CLINISYNY TB * (ABNORMAL) TBH CREATININE (09/03/2025 5:15 PM EDT) CREATININE 0.42(L) 0.55 - 1.02 mg/dL TBH TBH EGFR-AF CITIZEN [place] >60 >=60 mL/min/1.7 3m 2 TBH TBH EGFR-NON AF CITIZEN [place] >60 >=60 mL/min/1.7 3m 2 TBH 09/03/2025 5:15 PM EDT 09/03/2025 5:21 PM EDT Narrative CLINISYNC - 09/03/2025 5:40 PM EDT Nathan Kiesha DO CLINISYNC Final Result CLINISYNC TB * ALL BUN (09/03/2025 5:15 PM EDT) BLOOD UREA NITROGEN 8.0 7.0 - 18.0 mg/dL TBH 09/03/2025 5:15 PM EDT 09/03/2025 5:21 PM EDT Narrative CLINISYNC - 09/03/2025 5:40 PM EDT us Nathan Kiesha DO CLINISYNC Final Result Performing Organization Address [facility]/ZIP Co de Phone Number CLINISYNC TBH * (ABNORMAL) TBH URINE T PROTEIN CREAT RATIO (09/03/2025 5:05 PM EDT) TOTAL PROTEIN URINE RANDOM <6.0 <=11.9 mg/dL TBH CREATININE URINE RANDOM <13.00(L) 20.00 - 300.00 mg/dL TBH 09/03/2025 5:05 PM EDT 09/03/2025 5:21 PM EDT Narrative CLINISYNC - 09/03/2025 5:40 PM EDT Nathan Cabrerao DO CLINISYNC Final Result Performing Organization Address [facility] de Phone Number CLINJAMIE TB documented in this encounter Visit Diagnoses Not on filedocumented in this encounter Care Teams Swatch Maker Relationship Specialty Start Date End Date Eliceo Beltran DO [address] [place] [address] PCP - General Family Medicine 02/14/24 Eliceo Beltran DO [address] [place] [address] PCP - Medical [place] [employer] 07/27/24 11/25/99 documented as of this encounter
--- OUTSIDE RECORDS SUMMARY | 2025-09-06 13:22 | XMS_ITS | Encounter Summary ---
Author Organization [facility] Address [address] [facility] [place] [address] Care Team Providers Care Escort Blind Name Role Phone Eliceo Beltran DO Primary Care Provider [phone] Eliceo Beltran DO Unavailable [phone] Encounter Details Date Type Department Care Team (Late st Contact Info) Description 08/28/2025 Abstract [facility] [address] [facility] [address] [place] [phone] Eliceo Beltran DO [address] [facility] [address] [place] [address] Social History Tobacco Use Types Packs/Day Years [...] How often do you attend chur or zoroastrian services? 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 file Not on file documented as of this encounter Plan of Treatment Upcoming Encounters Date Type Department Care Team (Late st Contact Info) Description 09/15/2025 2:50 PM EDT Routine [facility] Patti MOODY [address] [place] [address] Zenobia Gutierrez PA [address] [facility] [place] [address] documented as of this encounter Visit Diagnoses Not on filedocumented in this encounter Care Teams Escort Blind Relationship Specialty Start Date End Date Eliceo Beltran DO [address] [address] PCP - General Family Medicine 02/14/24 Eliceo Beltran DO [address] [address] PCP - Medical [place] [employer] 07/27/24 11/25/99 documented as of this encounter
--- OUTSIDE RECORDS SUMMARY | 2025-09-06 13:22 | XMS_ITS | Encounter Summary ---
Author Organization [facility] Address [address] [facility] [place] [address] Care Team Providers Care Dining Services Director Name Role Phone Cruz Rodríguez MD Unavailable + 54 Cruz Rodríguez MD Unavailable + 54 Eliceo Beltran DO Primary Care Provider [phone] Eliceo Beltran DO Unavailable + [phone] Encounter Details Date Type Department Care Team (Late st Contact Info) Description 08/25/2024 Orders Only [facility] [place] [facility] [address] [place] [address] Virgen Steen LPN [address] [place] [address] [place] [address] Social History Tobacco Use Types Packs/Day [...] How often do you attend chur or rastafarian services? 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 Not on file documented as of this encounter Plan of Treatment Upcoming Encounters Date Type Department Care Team (Late st Contact Info) Description 09/15/2025 2:50 PM EDT Routine [facility] [address] [place] [phone] Zenobia Gutierrez PA [address] [place] [address] documented as of this encounter Procedures Procedure [...] on filedocumented in this encounter Care Teams Dining Services Director Relationship Specialty Start Date End Date Cruz Rodríguez MD [address] [place] [address] PCP - [place] [employer] 09/26/2111/25 Cruz Rodríguez MD [address] [place] [address] P[address] - [facility] 02/24/23 4 Eliceo Beltran DO [address] [address] PCP - General Family Medicine 02/14/24 Eliceo Beltran DO [address] [address] PCP - Medical [place] [employer] 07/27/24 11/25/99 documented as of this encounter
--- OUTSIDE RECORDS SUMMARY | 2025-09-06 13:22 | XMS_ITS | Encounter Summary ---
Author Organization [facility] Address [address] [facility] [place] [address] Care Team Providers Care Business Development Consultant Name Role Phone Cruz Rodríguez MD Unavailable + 54 Cruz Rodríguez MD Primary Care Provider + [phone] Cruz Rodríguez MD Unavailable + 54 [facility] PIER HAND Unavailable Trista Thao PIER HAND Unavailable [phone] Eliceo Beltran DO Primary Care Provider [phone] Eliceo Beltran DO Unavailable [phone] Encounter Details Date Type Department Care Team (Late st Contact Info) Description 01/15/2024 Clinisync Result Encounter [facility] External Department Unsolicited Jony Pop DO [address] [facility] [place] [address] Social History Tobacco Use Types Packs/Day Years [...] week 09/19/2023 How often do you attend [facility] or pentecostalism services? Patient declined 09/19/2023 Do [...] Recorded Patient Health Questionnaire-2 Score 0 10/23/2023 [facility] [place] of Occupat ional Health - Occupational Stress [...] in a fci (including now)? 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 on file Not on file documented as of this encounter Plan of Treatment Upcoming Encounters Date Type Department Care Team (Late st Contact Info) Description 09/15/2025 2:50 PM EDT Routine [facility] Patti MOODY [address] [address] Zenobia Gutierrez PA [address] [place] [address] documented as of this encounter Procedures Procedure Name Priority Date/Time Associated Diagnosis Comments US PELVIS W/ TRANSVAGINAL 01/15/2024 11:42 AM EST documented in this encounter Results * US PELVIS W/ TRANSVAGINAL (01/15/2024 11:42 AM EST) Anatomical Region Laterality Modality Other 01/15/2024 11:4 2 AM EST Narrative 01/15/2024 11:44 AM EST [address] [address] Ultrasound Report Signed Patient: DRISS COPE MR#: [id number] : 1995 Acct:[id number] Age/Sex: 28 / F ADM Date: 01/15/24 Loc: [facility] Attending Dr: Jony Pop D.O. Ordering Physician: Jony Pop D.O. Date of Service: 01/15/24 Procedure(s): US pelvis w/ transvaginal Accession Number(s): [id number] cc: Jony Pop D.O.; Physician,Non-Staff Katherine [address] [id number] Patient Name: DRISS COPE MRN: [facility]:[id number] date: 1995 Sex: F Assigned Patient Location: [facility] Current Patient Location: [facility] Accession/Order Number: [id number] Exam Date: 01/15/2024 07:57 Report Date: 01/15/2024 [...] Signed By: 01/15/24 1144 DD/ 1142 TD/TT: Relief Operator: Procedure Note Radiology, Radiologist, MD - 01/15/2024 [place] [address] Ultrasound Report Signed Patient: DRISS COPE MMR#: [id number] : 1995Acct:[id number] Age/Sex: 28 / FADM Date: 01/15/24 Loc: [facility] Attending Dr: Jony Pop D.O. Ordering Physician: Jony Pop D.O. Date of Service: 01/15/24 Procedure(s): US pelvis w/ transvaginal Accession Number(s): [id number] cc: Jony Pop D.O.; Physician,Non-Staff Katherine [address] [place] [id number] Patient Name: DRISS COPE MRN: [id number] date: 1995 Sex: F Assigned Patient Location: [facility] Current Patient Location: [facility] Accession/Order Number: [id number] Exam Date: 01/15/2024 07:57 Report Date: 01/15/2024 [...] M.D. Signed By:01/15/24 1144 DD/ 1142 TD/TT: Relief Operator: [facility] Final Result documented in this encounter Visit Diagnoses Not on filedocumented in this encounter Care Teams Business Development Consultant Relationship Specialty Start Date End Date Cruz Rodríguez MD [address] [place] [address] PCP - [facility] 09/26/2111/25 Cruz Rodríguez MD [address] [place] [address] PCP - General Family Medicine 04/10/23 02/13/24 Cruz Rodríguez MD [address] [place] [address] PCP - [employer] 02/24/23 4 Eliceo Beltran DO [address] [place] [address] PCP - General Family Medicine 02/14/24 Eliceo Beltran DO [address] [place] [address] PCP - Medical [place] [employer] 07/27/24 11/25/99 [facility] [place] NP [address] [place] [address] Nurse Practitioner Family Medicine 10/05/23 04/14/24 Trista Thao NP [address] [place] [address] Nurse Practitioner Pulmonary Disease 10/05/23 04/14/24 documented as of this encounter
--- OUTSIDE RECORDS SUMMARY | 2025-09-06 13:22 | XMS_ITS | Encounter Summary ---
Author Organization [facility] Address [address] [place] [address] Care Team Providers Care Sand Conditioner Machine Name Role Phone Eliceo Beltran Primary Care Provider [phone] CharlottecarolEliceo Unavailable [phone] Encounter Details Date Type Department Care Team (Late st Contact Info) Description 09/03/2025 Bamboo flowsheet [facility] [address] [facility] [place] [address] Steph Keane, DARKLIGHT INSPECTOR [address] [facility] [place] [address] Social History [...] week 12/29/2024 How often do you attend [facility] or jain services? 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 [phone] Zenobia Gutierrez PA [address] [facility] [place] [address] documented as of this encounter Visit Diagnoses Not on filedocumented in this encounter Care Teams Sand Conditioner Machine Relationship Specialty Start Date End Date Eliceo Beltran DO [address] [place] [address] PCP - General Family Medicine 02/14/24 Eliceo Beltran DO [address] [place] [address] PCP - Medical [place] [employer] 07/27/24 11/25/99 documented as of this encounter
--- OUTSIDE RECORDS SUMMARY | 2025-09-06 13:22 | XMS_ITS | Encounter Summary ---
Author Organization [facility] Address [address] [facility] [place] [address] Care Team Providers Care Real Estate Recruiter Name Role Phone Cruz Rodríguez MD Unavailable + 54 Cruz Rodríguez MD Primary Care Provider +54 Cruz Rodríguez MD Unavailable + 54 [facility] HEALTH SCIENCES PROGRAM COORDINATOR Unavailable Trista Thao HEALTH SCIENCES PROGRAM COORDINATOR Unavailable [phone] Eliceo Beltran DO Primary Care Provider [phone] Eliceo Beltran DO Unavailable [phone] Encounter Details Date Type Department Care Team (Late st Contact Info) Description 05/23/2023 Abstract [facility] [place] [address] [facility] [address] [place] [address] Briana Robles LPN [address] [facility] [place] [address] [place] [phone] Social History Tobacco Use Types Packs/Day Years [...] 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 Not [...] PM EDT Routine [facility] [address] [facility] [place] [address] Zenobia Gutierrez PA [address] [facility] [address] [place], [facility] documented as of this encounter Visit Diagnoses Not on filedocumented in this encounter Care Teams Real Estate Recruiter Relationship Specialty Start Date End Date Cruz Rodríguez MD [address] [place] [address] PCP - [facility] 09/26/2111/25 Cruz Rodríguez MD [address] [place] [address] PCP - General Family Medicine 04/10/23 02/13/24 Cruz Rodríguez MD [address] [place] [address] PCP - [facility] 02/24/23 4 Eliceo Beltran DO [address] [place] [address] PCP - General Family Medicine 02/14/24 Eliceo Beltran DO [address] [place] [address] PCP - Medical [employer] 07/27/24 11/25/99 [facility] [place] NP [address] [place] [address] Nurse Practitioner Family Medicine 10/05/23 04/14/24 Trista Thao NP [address] [place] [address] Nurse Practitioner Pulmonary Disease 10/05/23 04/14/24 documented as of this encounter
--- OUTSIDE RECORDS SUMMARY | 2025-09-06 13:22 | XMS_ITS | Encounter Summary ---
Author Organization [facility] Address [address] [facility] [place] [address] Care Team Providers Care Personnel Placement Specialist Name Role Phone Cruz Rodríguez MD Unavailable + 54 Cruz Rodríguez MD Primary Care Provider +54 Cruz Rodríguez MD Unavailable + 54 [facility] [place] SECONDARY EDUCATION PROFESSOR Unavailable Trista Thao SECONDARY EDUCATION PROFESSOR Unavailable [phone] Eliceo Beltran DO Primary Care Provider +[phone] Eliceo Beltran DO Unavailable [phone] Encounter Details Date Type Department Care Team (Late st Contact Info) Description 07/24/2023 Abstract [facility] [address] [facility] [address] [place] [address] Kellee Starkey LPN Social History Tobacco Use [...] 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 file Not on file documented as of this encounter Plan of Treatment Upcoming Encounters Date Type Department Care Team (Late st Contact Info) Description 09/15/2025 2:50 PM EDT Routine [facility] [address] [place] [address] Zenobia Gutierrez PA [address] [place] [address] documented as of this encounter Visit Diagnoses Not on filedocumented in this encounter Care Teams Personnel Placement Specialist Relationship Specialty Start Date End Date Cruz Rodríguez MD [address] [place] [address] PCP - [employer] 09/26/2111/25 Cruz Rodríguez MD [address] [place] [phone] PCP - General Family Medicine 04/10/23 02/13/24 Cruz Rodríguez MD [address] [place] [phone] PCP - [facility] 02/24/23 4 Eliceo Beltran DO [address] [facility] [address] [place] [address] PCP - General Family Medicine 02/14/24 Eliceo Beltran DO [address] [place] [address] PCP - Medical [place] [employer] 07/27/24 11/25/99 [facility] [place] NP [address] [place] [address] Nurse Practitioner Family Medicine 10/05/23 04/14/24 Trista Thao NP [address] [place] [address] Nurse Practitioner Pulmonary Disease 10/05/23 04/14/24 documented as of this encounter
--- OUTSIDE RECORDS SUMMARY | 2025-09-06 13:22 | XMS_ITS | Encounter Summary ---
Author Organization [facility] Address [address] [facility] [[email or web address]] [place] [address] Care Team Providers Care Delivery Route Driver Name Role Phone Cruz Rodríguez MD Unavailable + 54 Cruz Rodríguez MD Primary Care Provider [phone] Cruz Rodríguez MD Unavailable + 54 Zenobia East SENIOR INSTRUMENTATION ENGINEER Unavailable Trista Thao SENIOR INSTRUMENTATION ENGINEER Unavailable [phone] Eliceo Beltran DO Primary Care Provider [phone] Eliceo Beltran DO Unavailable [phone] Encounter Details Date Type Department Care Team (Late st Contact Info) Description 09/19/2023 Orders Only [facility] [address] [place] [address] Cruz Rodríguez MD [address] [place] [address] Social History Tobacco Use Types Packs/Day Years [...] any clubs o r organizations such as nondenominational groups, unions, fraternal or athletic groups, or [...] and heating? Not hard at all 09/19/2023 [facility] [employer] [facility] [employer] - Occupational Stress [...] a senior care (including now)? 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 Not [...] EDT Routine [facility] [address] [place] [id number] Zenobia Gutierrez PA [address] [place] [address] documented as of this encounter Visit Diagnoses Not on filedocumented in this encounter Care Teams Delivery Route Driver Relationship Specialty Start Date End Date Cruz Rodríguez MD [address] [place] [id number] PCP - [place] [employer] 09/26/2111/25 Cruz Rodríguez MD [address] [place] [id number] PCP - General Family Medicine 04/10/23 02/13/24 Cruz Rodríguez MD [address] [place] [id number] PCP - [facility] 02/24/23 4 Eliceo Beltran DO [address] [facility] [address] [place] [address] PCP - General Family Medicine 02/14/24 Eliceo Beltran DO [address] [place] [address] [place] [address] PCP - Medical [place] [employer] 07/27/24 11/25/99 Zenobia East NP [address] [place] [address] Nurse Practitioner Family Medicine 10/05/23 04/14/24 Trista Thao NP [address] [place] [address] Nurse Practitioner Pulmonary Disease 10/05/23 04/14/24 documented as of this encounter
--- OUTSIDE RECORDS SUMMARY | 2025-09-06 13:22 | XMS_ITS | Clinical Summary ---
Author Organization [facility] Address [address] [place] [address] Care Team Providers Care Museum Host/Hostess Name Role Phone Eliceo Beltran DO Primary Care Provider [phone] Eliceo Beltran DO Unavailable [phone] Allergies No known active allergies Medications metoprolol succinate XL (Toprol-XL) 25 MG 24 hr tabletIndication s:Hypertension, unspecified type Take 1 tablet by mouth daily 90 tablet 1 12/30/19 25 Active Vit-Fe Fumarate-FA ( Vitamins) 28-0.8 MG tabletIndication s:, unspecified gestational age ([facility]),Encoun ter for supervision of normal first in first trimester ([facility]) Take 1 tablet by mouth Daily 30 tablet 11 05/01/20 25 026 Active Lancets Ultra Thin miscIndications: Gestational diabetes mellitus (GDM), antepartum, gestational diabetes method of control unspecified ([facility]),Elevat ed glucose tolerance test 1 each by In Vitro route Daily Use to check FSBS four times daily 150 each 3 08/20/20 25 025 Active Alcohol Swabs (Alcohol Prep Pad) 70 % padsIndications: Gestational diabetes mellitus (GDM), antepartum, gestational diabetes method of control unspecified ([facility]),Elevat ed glucose tolerance test Apply 1 Pad topically Daily Use four times daily to check FSBS. 150 each 3 08/20/20 25 Active Glucose Blood (Blood Glucose Test) stripIndications :Gestational diabetes mellitus (GDM), antepartum, gestational diabetes method of control unspecified ([facility]),Elevat ed glucose tolerance test 1 strip by In Vitro route Daily Use in the morning prior to breakfast, 1 hour after each meal for a total of 4times daily. 150 strip 3 08/20/20 25 025 Active Blood Glucose Monitoring Suppl (D-Care Glucometer) w/Device kitIndications:G estational diabetes mellitus (GDM), antepartum, gestational diabetes method of control unspecified ([facility]),Elevat ed glucose tolerance test 1 kit Daily Use four times daily to check FSBS. In the morning prior to breakfast & 1 hour after each meal for a total of 4times daily. 1 kit 08/20/20 25 026 Active butalbital-aspir in-caffeine (Fiorinal) 50-325-40 MG capsule Take 1 capsule by mouth every 4 (four) hours if needed Active cetirizine (ZyrTEC) 10 MG tablet Take 10 mg by mouth in the morning. Active Ferrous Sulfate (IRON PO) Take 1 tablet by mouth in the morning. Active fluticasone (Flonase) 50 MCG/ACT nasal spray Administer 1 spray into affected nostril(s) in the morning. Active labetalol (Normodyne) 200 MG tabletIndication s:Gestational Hypertension Take 1 tablet (200 mg) by mouth in the morning and 1 tablet (200 mg) before bedtime. 60 tablet 3 09/03/20 Active labetalol (Normodyne) 100 MG tabletIndication s:Hypertension, unspecified type Take 1 tablet (100 mg) by mouth in the morning and 1 tablet (100 mg) before bedtime. 60 tablet 5 07/30/20 25 025 Discontinued Active Problems Problem Noted Date Diagnosed Date [...] Encounters Date Type Department Care Team Description 09/03/2025 3:50 PM EDT Routine [facility] [address] [place] [address] Steph Keane NP Hypertension affecting , antepartum ([facility]) (Primary Dx); 27 weeks gestation of ([facility]); Second trimester ([facility]) 09/03/2025 Clinisync Result Encounter [facility] External Department Unsolicited Nathan Pop DO 09/03/2025 Bamboo flowsheet [facility] [address] [place] [id number] Steph Keane NP 09/02/2025 Travel 08/29/2025 Clinisync Result Encounter [facility]OM[facility] External Department Unsolicited Steph Keane NP 08/28/2025 Abstract [facility] [place] [facility] [address] [place] [phone] Eliceo Beltran DO 08/28/2025 Telephone [facility] [address] [place] [address] Radha Rahman MA 08/27/2025 3:20 PM EDT Routine [facility] [address] [place] [address] Steph Keane, DEVYN 26 weeks gestation of ([facility]); Second trimester ([facility]); induced hypertension, antepartum ([facility]); Gestational diabetes mellitus (GDM) in second trimester, gestational diabetes method of control unspecified ([facility]) 08/27/2025 Clinisync Result Encounter [facility]OM[facility] External Department Unsolicited Steph Keane, DEVYN 08/27/2025 Clinisync Result Encounter [facility]OM[facility] External Department Unsolicited Steph Keane, DEVYN 08/27/2025 Bamboo flowsheet [facility] [address] [place] [address] Steph Keane NP 08/25/2025 Clinisync Result Encounter [facility]OM[facility] External Department Unsolicited Provider, Generic External Data 08/20/2025 Abstract [facility] [address] [place] [address] Nathan Pop, 08/20/2025 Telephone [facility] [address] [place] [address] Steph Keane, DEVYN 08/17/2025 Abstract [facility] [address] [facility] [address] [place] [phone] Eliceo Beltran, DO 08/17/2025 Abstract [facility] [address] [place] [phone] Eliceo Beltran, DO 08/17/2025 Telephone [facility] [address] [place] [address] Nathan Pop, 08/12/2025 2:40 PM [place] [address] Nathan Pop, DO 24 weeks gestation of ([facility]); Second trimester ([facility]); Elevated glucose tolerance test 08/12/2025 2:00 PM EDT [place] [address] Encounter for follow-up ultrasound of anatomy ([facility]) 08/12/2025 Telephone [facility] [address] [place] [address] Bill Gould LPN Results 08/12/2025 Abstract [facility] [address] [place] [address] Eliceo Beltran, 08/04/2025 Telephone [facility] [address] [place] [address] Bill Gould LPN Results 07/30/2025 3:40 PM EDT Office Visit [facility] [address] [place] [address] Eliceo Beltran, DO Wellness examination (Primary Dx); Hypertension, unspecified type ; Lipid screening 07/30/2025 Bamboo flowsheet [facility] [address] [place] [address] Eliceo Beltran, 07/30/2025 Travel 07/21/2025 Telephone [facility] [address] [place], [place] [address] [address] Nathan Pop, 07/15/2025 3:30 PM [place] [address] Nathan Pop, DO 20 weeks gestation of ([facility]); Second trimester ([facility]); Diabetes mellitus screening 07/15/2025 2:30 PM EDT [place] [phone] Screening, , for anatomic survey ([facility]) 07/15/2025 Clinisync Result Encounter NOMS External Department Unsolicited Nathan Pop, DO 06/25/20[place] [phone] Nathan Pop, DO 06/22/2025 2:10 PM [place] [phone] Nathan Pop, DO Sinusitis, unspecified chronicity, unspecified location (Primary Dx); Second trimester ([facility]); 17 weeks gestation of ([facility]); Screening, , for anatomic survey ([facility]) 06/22/2025 External Result Encounter NOMS External Department Unsolicited Nathan Pop, DO 06/22/2025 Bamboo flowsheet [facility] [address] [place], [place] [address] [address] Nathan Pop, DO 06/15/2025 Travel 06/09/2025 Telephone [facility] [place] [address] Hina Go LPN from Last 3 [...] do you attend [facility] or [employer]? 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 Not on file Not on file Last Filed Vital Signs Vital Sign Reading Time Taken Comments Blood Pressure 170/90 09/03/2025 3:54 PM EDT Pulse 97 07/30/2025 3:36 PM EDT Temperature 36.2 C (97.1 F) 07/30/2025 3:36 PM EDT Respiratory Rate 16 10/23/2023 4:16 PM EST Oxygen Saturation 98% 07/30/2025 3:36 PM EDT Inhaled Oxygen Concentration - - Weight 72.9 kg (160 lb 12.8 oz) 09/03/2025 3:54 PM EDT Height 157.5 cm (5' 2 ) 07/30/2025 3:36 PM EDT Body Mass Index 29.41 07/30/2025 3:36 PM EDT Plan of Treatment Upcoming Encounters Date Type Department Care Team (Late st Contact Info) Description 09/15/2025 2:50 PM EDT Routine [facility] [address] [place] [address] Zenobia Gutierrez PA [address] [place] [address] Health Maintenance Due Date Last Done Comments Influenza Vaccine (#1) 2025 09/11/2014 Pap Smear 08/18/2027 08/18/2024, 07/28, 06/20/2022, Additional history exists Cervical Cancer Screening 09/03/2028 HPV/Cotest 09/03/2028 09/03/2023 Procedures Procedure Name Priority Date/Time Associated Diagnosis Comments ALL CBC WITH AUTO DIFF Routine 09/03/2025 5:15 PM EDT MHPT FIBRINOGEN Routine 09/03/2025 5:15 PM EDT [facility] APTT Routine 09/03/2025 5:15 PM EDT SRMCOH PROTHROMBIN TIME INR W/O COUM Routine 09/03/2025 5:15 PM EDT C[facility] ALT Routine 09/03/2025 5:15 PM EDT [facility] AST Routine 09/03/2025 5:15 PM EDT ALL URIC ACID Routine 09/03/2025 5:15 PM EDT TBH CREATININE Routine 09/03/2025 5:15 PM EDT ALL BUN Routine 09/03/2025 5:15 PM EDT TBH URINE T PROTEIN CREAT RATIO Routine 09/03/2025 5:05 PM EDT POCT URINALYSIS DIPSTICK Routine 09/03/2025 4:26 PM EDT 27 weeks gestation of ([facility]) TBH TOTAL PROTEIN 24 HOUR URINE Routine 08/29/2025 8:00 AM EDT US OB BPP W NON-STRESS 08/27/2025 6:02 PM EDT TBH URINE T PROTEIN CREAT RATIO Routine 08/27/2025 5:50 PM EDT CCF ALT Routine 08/27/2025 5:00 PM EDT CCF APTT [...] 3:53 PM EDT 26 weeks gestation of ([facility]) URINE CULTURE, ROUTINE Routine 08/25/2025 8:10 AM EDT POCT URINALYSIS DIPSTICK Routine 08/12/2025 2:39 PM EDT 24 weeks gestation of ([facility]) Second trimester ([facility]) US OB LIMITED 1+ FETUSES Routine 08/12/2025 2:22 PM EDT Encounter for follow-up ultrasound of anatomy ([facility]) AFP, SERUM, OPEN SPINA BIFIDA Routine 07/15/2025 5:07 PM EDT POCT URINALYSIS DIPSTICK Routine 07/15/2025 3:50 PM EDT 20 weeks gestation of ([facility]) Second trimester ([facility]) US OB 14+ WEEKS ANATOMY SCAN Routine 07/15/2025 3:26 PM EDT Screening, , for anatomic survey ([facility]) RECURRENT VAGINITIS (HTRX) Routine 06/22/2025 4:25 PM EDT POCT URINALYSIS DIPSTICK Routine 06/22/2025 2:39 PM EDT Second trimester ([facility]) 17 weeks gestation of ([facility]) PAP SMEAR Routine 08/18/2024 12:00 AM EDT THINPREP PAP AND HPV MRNA E6/E7 W/RFL HPV 16,18/45 Routine 09/03/2023 4:00 PM EDT Well woman exam with routine gynecological exam from Last 3 Months or Most Recently Relevant to Health Maintenance Results * (ABNORMAL) TBH CREATININE (09/03/2025 5:15 PM EDT) Only the most recent of2 resultswithin the time period is included. CREATININE 0.42(L) 0.55 - 1.02 mg/dL TBH TBH EGFR-AF VINCENTIAN >60 >=60 mL/min/1.7 3m 2 TBH TBH EGFR-NON AF VINCENTIAN >60 >=60 mL/min/1.7 3m 2 TBH 09/03/2025 5:15 PM EDT 09/03/2025 5:21 PM EDT Narrative CLINISYNC - 09/03/2025 5:40 PM EDT Nathan Pop DO CLINISYNC Final Result Performing Organization Address [facility] Co de Phone Number [facility] * [facility] PROTHROMBIN TIME INR W/O COUM (09/03/2025 5:15 PM EDT) Only the most recent of2 resultswithin the time period is included. PROTHROMBIN TIME 9.8 9.0 - 11.6 sec TBH TBH INR <0.93 TBH Comment: DESIRED INR: 2.0-3.0 CONDITIONS NOT LISTED BELOW 2.5-3.5 FOR PROSTHETIC HEART VALVE REPLACEMENT 2.5-3.5 RECURRENT THROMBOSIS 09/03/2025 5:15 PM EDT 09/03/2025 5:21 PM EDT Narrative CLINISYNC - 09/03/2025 5:45 PM EDT Nathan Kiesha DO CLINISYNC Final Result Performing Organization Address [facility] de Phone Number [facility] * (ABNORMAL) MHPT FIBRINOGEN (09/03/2025 5:15 PM EDT) FIBRINOGEN 405(H) 200 - 400 mg/dL TB 09/03/2025 5:15 PM EDT 09/03/2025 5:21 PM EDT Narrative CLINISYNC - 09/03/2025 5:45 PM EDT Nathan Kiesha DO CLINISYNC Final Result Performing Organization Address [facility] de Phone Number [facility] * [facility] AST (09/03/2025 5:15 PM EDT) Only the most recent of2 resultswithin the time period is included. ASPARTATE AMINO TRANSFERASE 24 15 - 37 U/L TB 09/03/2025 5:15 PM EDT 09/03/2025 5:21 PM EDT Narrative CLINISYNC - 09/03/2025 5:40 PM EDT Nathan Kiesha DO CLINISYNC Final Result Performing Organization Address [facility] Co de Phone Number [facility] * [facility] APTT (09/03/2025 5:15 PM EDT) Only the most recent of2 resultswithin the time period is included. PARTIAL THROMBOPLASTIN TIME 26.1 22.3 - 36.2 sec TB 09/03/2025 5:15 PM EDT 09/03/2025 5:21 PM EDT Narrative CLINISYNC - 09/03/2025 5:45 PM EDT us Nathan Kiesha DO CLINISYNC Final Result Performing Organization Address [facility] de Phone Number [facility] * [facility] ALT (09/03/2025 5:15 PM EDT) Only the most recent of2 resultswithin the time period is included. ALANINE AMINOTRANSFERASE 40 14 - 59 U/L TB 09/03/2025 5:15 PM EDT 09/03/2025 5:21 PM EDT Narrative CLINISYNC - 09/03/2025 5:40 PM EDT us Nathan Kiesha DO CLINISYNC Final Result Performing Organization Address [facility] de Phone Number [facility] * ALL URIC ACID (09/03/2025 5:15 PM EDT) Only the most recent of2 resultswithin the time period is included. URIC ACID 3.5 2.6 - 6.0 mg/dL TB 09/03/2025 5:15 PM EDT 09/03/2025 5:21 PM EDT Narrative CLINISYNC - 09/03/2025 5:40 PM EDT Nathan Kiesha DO CLINISYNC Final Result Performing Organization Address [facility] Co de Phone Number [facility] * (ABNORMAL) ALL CBC WITH AUTO DIFF (09/03/2025 5:15 PM EDT) Only the most recent of2 resultswithin the time period is included. TBH WBC 11.4(H) 4.0 - 11.0 10 [...] DO CLINISYNC Final Result Performing Organization Address [facility] Co de Phone Number [facility] * ALL BUN (09/03/2025 5:15 PM EDT) Only the most recent of2 resultswithin the time period is included. BLOOD UREA NITROGEN 8.0 7.0 - 18.0 mg/dL TBH 09/03/2025 5:15 PM EDT 09/03/2025 5:21 PM EDT Narrative CLINISYNC - 09/03/2025 5:40 PM EDT Nathan Cabrerao DO MATTHEWISYMN Final Result Performing Organization Address [facility] de Phone Number [facility] * (ABNORMAL) TBH URINE T PROTEIN CREAT RATIO (09/03/2025 5:05 PM EDT) Only the most recent of2 resultswithin the time period is included. TOTAL PROTEIN URINE RANDOM <6.0 <=11.9 mg/dL TBH CREATININE URINE RANDOM <13.00(L) 20.00 - 300.00 mg/dL TB 09/03/2025 5:05 PM EDT 09/03/2025 5:21 PM EDT Narrative CLINISYNC - 09/03/2025 5:40 PM EDT us Nathan CALLEJASISYTERRY Final Result Performing Organization Address [facility] Co de Phone Number [facility] * POCT urinalysis dipstick manually resulted (09/03/2025 4:26 PM EDT) Only the most recent of5 resultswithin the time period is included. Color, [...] Urine 09/03/2025 4:26 PM EDT Steph Keane CONTRACTING SPECIALIST POINT OF CARE TEST ENTER/EDIT ORDERABLES Final Result * (ABNORMAL) TBH TOTAL PROTEIN 24 HOUR URINE (08/29/2025 8:00 AM EDT) TOTAL PROTEIN URINE RANDOM 22.6(H) <=11.9 mg/dL TBH TOTAL VOLUME 24 HOUR URINE 600 mL/24hr TBH TBH TOTAL PROTEIN 24 HOUR URINE 135.6 <=149.1 mg/24hr TBH 08/29/2025 8:00 AM EDT 08/29/2025 10:35 AM EDT Narrative CLINISYNC - 08/29/2025 12:08 PM EDT Generic External Data Provider CLINISYNC F ina Result [facility] * US OB BPP W NON-STRESS (08/27/2025 6:02 PM EDT) Anatomical Region Laterality Modality Other 08/27/2025 6:02 PM EDT Narrative 08/27/2025 6:05 [place] [address] Ultrasound Report Signed Patient: DRISS GAMA MR#: [id number] : 1995 Acct:[id number] Age/Sex: 30 / F ADM Date: Loc: [facility] 250-[address]: KUNAL HYATT M.D. Ordering Physician: Steph Keane Date of Service: 08/27/25 Procedure(s): US OB BPP w non-stress Accession Number(s): [id number] cc: Le Keane [place] [id number] Patient Name: DRISS GAMA MRN: [facility]:[id number] date: 1995 Sex: F Assigned Patient Location: LAB Current Patient Location: LAB Accession/Order Number: [id number] Exam Date: 08/27/2025 17:37 Report Date: 08/27/2025 [...] 08/27/2025 6:02 PM Dictation Location: [place] [address] Electronically authenticated by: [id number] Y Date: 08/27/2025 18:02 Dictated By: Jp Morillo D.O. Signed By: 08/27/251804 DD/ 01 TD/TT: Custodial Manager: Procedure Note Radiology, Radiologist, MD - 08/27/2025 [place] [address] Ultrasound Report Signed Patient: DRISS GAMA MMR#: [id number] : 1995Acct:[id number] Age/Sex: 30 / FADM Date: Loc: [facility] 250-[address]: KUNAL HYATT M.D. Ordering Physician: Steph Keane Date of Service: 08/27/25 Procedure(s): US OB BPP w non-stress Accession Number(s): [id number] cc: Le Keane [place] [id number] Patient Name: DRISS GAMA MRN: [id number] date: 1995 Sex: F Assigned Patient Location: LAB Current Patient Location: LAB Accession/Order Number: [id number] Exam Date: 08/27/2025 17:37 Report Date: 08/27/2025 [...] 08/27/2025 6:02 PM Dictation Location: [place] [address] Electronically authenticated by: [id number] Y Date: 8:02 Dictated By: Jp Morillo D.O. Signed By:08/27/251804 DD/ 01 TD/TT: Custodial Manager: Steph Keane NP CLINISYNC IMAGING Final Resul t * ALL LDH (08/27/2025 5:00 PM EDT) LACTATE DEHYDROGENASE 151 81 - 234 U/L TB 08/27/2025 5:00 PM EDT 08/27/2025 5:01 PM EDT Narrative CLINISYNC - 08/27/2025 5:19 PM EDT Steph Keane NP CLINISYNC Final Result [facility] * URINE CULTURE, ROUTINE (08/25/2025 8:10 AM EDT) URINE CULTURE, ROUTINE Urine Culture, Routine TBH URINE CULTURE, ROUTINE Mixed urogenital robert TB URINE CULTURE, ROUTINE 25,000-50,000 colony forming units per mL TB URINE CULTURE, ROUTINE [facility]formed at: [facility] URINE CULTURE, ROUTINE [address] [place], [place] [id number] [facility] URINE CULTURE, ROUTINE Data Analytics Developer: Cm Sandoval PhD, Phone: [phone] [facility] 08/25/2025 8:10 AM EDT 08/25/2025 8:30 AM EDT Narrative JENNIFER - 08/26/2025 10:07 PM EDT us Generic External Data Provider LAB BLOOD ORDERAB LES Final Result JENNIFER [facility] * US OB limited 1+ fetuses [...] (07/15/2025 5:07 PM EDT) RESULTS Report . TBH TEST RESULTS: *Screen Negative* . TBH GEST. AGE ON COLLECTION DATE 20.6 . weeks [facility] GESTAT. AGE BASED ON LMP . [facility] Comment: Recalculations are not recommended when gestational dating by LMP and ultrasound are within 10 days. [age] [facility] RACE . [facility] WEIGHT 146 . lbs [facility] INSULIN DEP DIABETES No . TBH MULTIPLE GESTATION No . TBH AFP VALUE 59.2 . ng/mL [facility] AFP MOM 0.95 . [facility] [place] [place] [id number] . [facility] INTERPRETATION Comment . [facility] Comment: Interpretation: Screen Negative This result [...] age 35 and older. COMMENT: Comment . [facility] Comment: Amy Ramos, Ph.D., [facility] Director References: Available Upon Request. Multiples Of Median Cutoffs For AFP Elevations Hsieh 2.5 Black 2.8 IDD 2.0 Twins 4.5 Abbreviation Definitions IDD - Insulin Dep Diabetes OSBR - Open Spina Bifida Risk For further inquiries contact [employer] [facility] at [phone]. This test was developed and its performance characteristics determined by [employer]. It has not been cleared or approved by the Food and Drug Administration. Performed at: [facility] [place], [place] [id number] Data Analytics Developer: Dona Justin [facility], Phone: [phone] 07/15/2025 5:07 PM EDT 07/15/2025 5:10 PM EDT Narrative CLINISYNC - 07/18/2025 1:07 AM EDT N N LMP [id number] 2 17 N 1 Y 146 N N N N N White/ us Generic External Data Provider LAB BLOOD ORDERAB LES Final Result CLINISYNC TB[facility] * US OB 14+ weeks anatomy [...] recommended. Interpreted by: Electronically signed by TRAVIS RUDEA II, MD, PHD at 16-Jul-2025 08:07:07 AM [facility] Procedure Note Travis Rueda MD - [...] TRAVIS RUEDA II, MD, PHD 08:07:07 AM [facility] us Nathan Kiesha DO IMG OB US PROCEDURES Final Resul t * (ABNORMAL) RECURRENT VAGINITIS (HTRX) (06/22/2025 4:25 PM EDT) [facility] ATOPOBIUM VAGINAE 0 19.961 - 24.689 ppm 06/24/2025 6:19 AM EDT [facility] ATOPOBIUM VAGINAE Not Detected 19.961 - 24.689 ppm 06/24/2025 6:19 AM EDT [facility] BVAB 2,3 (BACTERIAL VAGINOSIS ASSOCIATED BACTERIA 2, 3); MOBILUNCUS SPP 0 19.961 - 24.689 ppm 06/24/2025 6:19 AM EDT [facility] BVAB 2,3 (BACTERIAL VAGINOSIS ASSOCIATED BACTERIA 2, 3); MOBILUNCUS SPP Not Detected 19.961 - 24.689 ppm 06/24/2025 6:19 AM EDT [facility] RADHA ALBICANS, PARAPSILOSIS, TROPICALIS 0 23.000 - 30.347 ppm 06/24/2025 6:19 AM EDT [facility] RADHA ALBICANS, PARAPSILOSIS, TROPICALIS Not Detected 23.000 - 30.347 ppm 06/24/2025 6:19 AM EDT [facility] RADHA GLABRATA 0 23.000 - 31.618 ppm 06/24/2025 6:19 AM EDT [facility] RADHA GLABRATA Not Detected 23.000 - 31.618 ppm 06/24/2025 6:19 AM EDT [facility] RADHA KRUSEI 0 23.000 - 30.873 ppm 06/24/2025 6:19 AM EDT [facility] [facility] RADHA KRUSEI Not Detected 23.000 - 30.873 ppm 06/24/2025 6:19 AM EDT [facility] CHLAMYDIA TRACHOMATIS 0 23.000 - 31.586 ppm 06/24/2025 6:19 AM EDT [facility] CHLAMYDIA TRACHOMATIS Not Detected 23.000 - 31.586 ppm 06/24/2025 6:19 AM EDT [facility] GARDNERELLA VAGINALIS 17.967(A) 19.961 - 24.689 ppm 06/24/2025 6:38 AM EDT [facility] GARDNERELLA VAGINALIS Detected(A) 19.961 - 24.689 ppm 06/24/2025 6:38 AM EDT [facility] MEGASPHAERA (TYPES 1, 2) 0 19.961 - 24.689 ppm 06/24/2025 6:19 AM EDT [facility] ALEXANDRIAHAERA (TYPES 1, 2) Not Detected 19.961 - 24.689 ppm 06/24/2025 6:19 AM EDT [facility] NEISSERIA GONORRHOEAE 0 23.000 - 32.587 ppm 06/24/2025 6:19 AM EDT [facility] NEISSERIA GONORRHOEAE Not Detected 23.000 - 32.587 ppm 06/24/2025 6:19 AM EDT [facility] TRICHOMONAS VAGINALIS 0 23.000 - 31.995 ppm 06/24/2025 6:19 AM EDT [facility] TRICHOMONAS VAGINALIS Not Detected 23.000 - 31.995 ppm 06/24/2025 6:19 AM EDT [facility] MYCOPLASMA GENITALIUM 0 19.961 - 24.689 ppm 06/24/2025 6:19 AM EDT [facility] MYCOPLASMA GENITALIUM Not Detected 19.961 - 24.689 ppm 06/24/2025 6:19 AM EDT [facility] Tissue 06/22/2025 4:25 PM EDT 06/24/2025 1:21 AM EDT Nathan Pop DO LAB BLOOD ORDERABLES Final Resul t [facility] [address] [address] * Pap Smear (08/18/2024 12:00 AM EDT) Swab Cervical swab / Unknown us Kiesha Nurse [facility] Ob LAB CYTOLOGY ORDERABLES Final Result Performing Organization Address [facility]/ZIP Co de Phone Number EXTERNAL LAB * THINPREP PAP AND HPV MRNA E6/E7 W/RFL HPV 16,18/45 (09/03/2023 4:00 PM EDT) us Zenobia TALAVERA LAB BLOOD ORDERABLES Final Resul t Performing Organization Address [facility] Co de Phone Number EXTERNAL LAB from Last 3 Months or Most Recently Relevant to Health Maintenance Insurance [employer] Care Teams Museum Host/Hostess Relationship Specialty Start Date End Date Eliceo Beltran DO [address] [place] [address] PCP - General Family Medicine 02/14/24 Eliceo Beltran DO [address] [place] [address] PCP - Medical [place] [employer] 07/27/24 11/25/99
--- OUTSIDE RECORDS SUMMARY | 2025-09-06 13:22 | XMS_ITS | Patient Health Record ---
Author Organization [facility] Address [address] [place] [address] Care Team Providers Care Spray Technician Name Role Phone Cruz Rodríguez Primary Care [...] Status W/U Status Risk Notes Problem Tachycardia (2567859) Tachycardia (R00.0) Active confirmed Problem Obesity (066110806) Obesity (BMI 30-39.9) (E66.9) Active confirmed Plan Of Treatment No Information Insurance Providers Payer Name Payer Address Payer Phone Subscriber Number Group Number Insured Name Patient Relationship to Insured Coverage Start Date Coverage End Date NEGRA LOZANO [facility] [employer] [address] [place] [address] [id number] Driss Woodruff Self - patient is the insured Medical [place] [employer] [place] [address] [place] [address] [id number] Driss Woodruff Self - patient is the insured Medical (General) History Medical History History ICD Code Tachycardia R00.0 Surgical History Surgery Date(Month/Year) appendectomy endometriosis right shoulder surgery Hospitalization History Reason Date(Month/Year) surgeries childbirth
--- OUTSIDE RECORDS SUMMARY | 2025-09-06 13:22 | XMS_ITS | Encounter Summary ---
Author Organization [facility] [employer] [facility] tem Address [id number] [address] [place] [address] Care Team Providers Care Wrapping Machine Helper Name Role Phone Cruz Rodríguez MD Primary Care Provider [phone] Encounter Details Date Type Department Care Team (Late Contact Info) Description 08/19/2025 Orders Only Maternal- Medicine at [facility] [address] [place] [address] Ref Prov, [place] [address] Social History Tobacco Use Types Packs/Day Years [...] 09/10/2025 9:45 AM EDT Appointment Maternal Medicine [place] [address] [facility] [address] [place] [address] 09/10/2025 11:00 AM EDT Telemedicine Maternal Medicine [place] [address] [facility] [address] [place] [address] Quynh Clements MD [address], [address] [place] [address] 10/05/2025 3:00 PM EST Office Visit Maternal- Medicine at [facility] [address] [place] [phone] Kayleigh Rizzo PA-C [address] [place] [address] documented as of this encounter Procedures Procedure [...] ORDERABLES Jayla l Result Performing Organization Address [facility]/ZIP Co de Phone Number MANUALLY TRANSCRIBED RESULTS * Ultrasound - Office (05/01/2025 10:15 AM EDT) Anatomical Region Laterality Modality AMB Ultrasound us Not In System Ref Prov IMG US ORDERABLES Final R esult documented in this encounter Visit Diagnoses Not on filedocumented in this encounter Care Teams Wrapping Machine Helper Relationship Specialty Start Date End Date Cruz Rodríguez MD [address] [place] [address] PCP - General Family Medicine 12/02/18 documented as of this encounter
--- OUTSIDE RECORDS SUMMARY | 2025-09-06 13:22 | XMS_ITS | Encounter Summary ---
Author Organization [facility] Address [address] [place] [address] Care Team Providers Care Respiratory Technician Name Role Phone RubyEliceo Bryant DAY Primary Care Provider [phone] Ruby Eliceo Hurtado DO Unavailable [phone] Encounter Details Date Type Department Care Team (Late st Contact Info) Description 08/28/2025 Telephone [facility] [address] [place] [address] Radha Rahman MA [address] [place] [address] Social History Tobacco Use Types Packs/Day Years [...] week 12/29/2024 How often do you attend [facility] or cheondoism services? 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 RO[address] MON[facility] Steph sent ptover for evaluation. However, pt states she was sent home w/an elevated b/p. Pt states she woke up this morning with a horrible pounding headache. Pt was advised to go get seen at the ER and someone there will have [facility] come and get you. PVU. I did call [facility] to notify them of what was going on w/patient. Spoke w/cleveland from [facility] and nurse ANAHI. Episode of was sent over to [facility]. documented in this encounter Plan of Treatment Upcoming Encounters Date Type Department Care Team (Late st Contact Info) Description 09/15/2025 2:50 PM EDT Routine [facility] [address] [place] [address] Zenobia Gutierrez PA [address] [facility] [place] [address] documented as of this encounter Visit Diagnoses Not on filedocumented in this encounter Care Teams Respiratory Technician Relationship Specialty Start Date End Date Eliceo Beltran DO [address] [place] [address] PCP - General Family Medicine 02/14/24 Elicoe Beltran DO [address] [place] [address] PCP - Medical [place] [employer] 07/27/24 11/25/99 documented as of this encounter
--- OUTSIDE RECORDS SUMMARY | 2025-09-06 13:22 | XMS_ITS | Encounter Summary ---
Author Organization [facility] Address [address] [facility] [place] [address] Care Team Providers Care Life Science Research Assistant Name Role Phone NirajEliceo kauffman Bryant DAY Primary Care Provider [phone] CharlottecarolEliceo Bryant DAY Unavailable [phone] Encounter Details Date Type Department Care Team (Latest Contact Info) Description 09/02/2025 Travel Social History Tobacco Use Types Packs/Day [...] often do you attend chur ch or muslim services? 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 file Not on file documented as of this encounter Plan of Treatment Upcoming Encounters Date Type Department Care Team (Late st Contact Info) Description 09/15/2025 2:50 PM EDT Routine [facility] [address] [facility] [place] [phone] Zenobia Gutierrez PA [address] [facility] [address] [place], [place] [phone] documented as of this encounter Visit Diagnoses Not on filedocumented in this encounter Care Teams Life Science Research Assistant Relationship Specialty Start Date End Date Eliceo Beltran DO [address] [place] [address] PCP - General Family Medicine 02/14/24 Eliceo Beltran DO [address] [place] [address] PCP - Medical [place] [employer] 07/27/24 11/25/99 documented as of this encounter
--- OUTSIDE RECORDS SUMMARY | 2025-09-06 13:22 | XMS_ITS | Clinical Summary ---
Author Organization [employer] tem Address [facility][id number] [address] [place] [address] Care Team Providers Care Integration Analyst Name Role Phone Cruz Rdoríguez MD Primary Care Provider [phone] Allergies No known active allergies Medications labetaloL (NORMODYNE) 100 mg tablet Take 2 tablets (200 mg total) by mouth 3 (three) times a day. Active PNV no.95-ferrous fumarate-FA () 28 mg iron- 800 mcg tablet Take 1 tablet by mouth in the morning. Active insulin glargine-yfgn 100 unit/mL (3 mL) insulin penIndications: t controlled gestational diabetes mellitus (GDM) in second trimester,Essentia l hypertension affecting in third trimester Prime with 2 units and give 10 units subQ at bedtime. 15 mL 3 09/04/20 25 Active pen needle, diabetic (BD ULTRA-FINE REGGIE PEN NEEDLE) 32 gauge x 5/32 needleIndications: Diet controlled gestational diabetes mellitus (GDM) in second trimester,Essentia l hypertension affecting in third trimester Use pen needles to give insulin. 100 each 1 09/04/20 25 Active rizatriptan WELDING TEACHER (MAXALT-WELDING TEACHER) 5 mg disintegrating tablet Dissolve 1 tablet (5 mg total) on tongue as needed. 0 10/24/20 18 025 Discontin ued(Pregn claritza) norethindrone ac-eth estradiol (MICROGESTIN 12/15) 1-20 mg-mcg per tablet Take 1 tablet by mouth in the evening. 0 12/01/19 19 Discontin ued(Pregn claritza) cholecalciferol, vitamin D3, (VITAMIN D3) 5,000 units capsule Take 1 capsule (5,000 Units total) by mouth in the morning. 0 10/25/20 18 Discontin ued(Pregn claritza) cyanocobalamin, vitamin B-12, (VITAMIN B-12) 1,000 mcg tablet extended release Take 1 tablet (1 mg total) by mouth in the morning. 0 10/25/20 18 Discontin ued(Pregn claritza) ASCORBIC ACID WITH ISAURO HIPS 500 MG tablet Take 2 tablets (1,000 mg total) by mouth in the morning. 0 10/25/20 18 Discontin ued(Pregn claritza) metoprolol succinate XL (TOPROL XL) 25 mg 24 hr tablet Take 1 tablet (25 mg total) by mouth in the morning. Discontin ued(Pregn claritza) fluticasone propionate (FLONASE) 50 mcg/actuation nasal spray Administer 1 spray into each nostril in the morning. Discontin ued(Pregn claritza) cetirizine (ZyrTEC) 10 mg tablet Take 1 tablet (10 mg total) by mouth in the morning. Discontin ued(Pregn claritza) promethazine (PHENERGAN) 12.5 mg suppository Insert 1 suppository (12.5 mg total) into the rectum every 6 (six) hours as needed for nausea or vomiting. Discontin ued(Pregn claritza) magnesium oxide (MAGOX) 400 mg tablet Take 1 tablet (400 mg total) by mouth in the morning. Discontin ued(Pregn claritza) meloxicam (MOBIC) 15 mg tablet Take 1 tablet (15 mg total) by mouth in the morning. Discontin ued(Pregn claritza) butalbital-aspirin -caffeine (FIORINAL) 50-325-40 mg per capsule Take 1 capsule by mouth every 4 (four) hours as needed for headaches. Discontin ued(Pregn claritza) Active Problems Problem Noted Date Diagnosed Date Essential hypertension affec ting in third trimester 09/04/2025 Diet controlled gestational diabetes mellitus (GDM) in second trimester 08/21/2025 Estimated Date of Delivery Comme nts Yes 11/28/2025 Based on last me nstrual period of 02/21/2025 (Exact Date) Encounters Date Type Department Care Team Description 09/04/2025 3:00 PM EDT Office Visit Maternal- Medicine at [facility] [address] [place] [address] Jean Carlos Pina MD Diet controlled gestational diabetes mellitus (GDM) in second trimester (Primary Dx); Essential hypertension affecting in third trimester 09/02/2025 Travel 09/01/2025 Telephone Maternal- Medicine at [facility] [address] [place] [address] Cha Harris RN 08/24/2025 1:30 PM EDT Support Visit Maternal- Medicine at [facility] [address] [place] [address] Teena Sarmiento, RN Kerline Steiner RD Gestational diabetes mellitus (GDM) in second trimester, gestational diabetes method of control unspecified 08/23/2025 Travel 08/22/2025 Travel 08/21/2025 Abstract Maternal- Medicine at [facility] [address] [place] [address] External, Scanning Provider 08/19/2025 Orders Only Maternal- Medicine at [place] [address] [place] [address] Ref Prov, Not In System 08/18/2025 Abstract Maternal- Medicine at [place] [address] [place] [address] Quynh Clements MD 08/18/2025 Orders Only Maternal- Medicine at [place] [address] [place] [address] Khalida Garrett RN History of pre-eclampsia in [...] PM EDT Temperature - - Respiratory Rate 14 12/10/2018 11:10 AM EST Oxygen Saturation 98% 12/10/2018 11:10 AM EST Inhaled Oxygen Concentration - - Weight 72 kg (158 lb 12.8 oz) 09/04/2025 2:48 PM EDT Height 157.5 cm (5' 2.01 ) 09/04/2025 2:48 PM ED T Body Mass Index 29.04 09/04/2025 2:48 PM EDT Plan of Treatment Upcoming Encounters Date Type Department Care Team (Late st Contact Info) Description 09/10/2025 9:45 AM EDT Appointment Maternal Medicine [place] [address] [facility] [address] [place] [address] 09/10/2025 11:00 AM EDT Telemedicine Maternal Medicine [place] [address] [facility] [address] [place] [address] Quynh Clements MD [address] [facility], [address] [place] [address] 10/05/2025 3:00 PM EST Office Visit Maternal- Medicine at [facility] [address] [place] [address] Kayleigh Rizzo PA-C [address] [place] [address] Health Maintenance Due Date Last Done Comments Depression Screening 2007 Tobacco Screening 2007 Adult BMI Follow Up Plan 2013 DTaP,Tdap and Td Vaccines (7 - Td or Tdap) 2024 2014, 05/03/2000, 12/29/1997, Additional history exists Influenza Vaccine 07/27/2025 09/11/2014 Adult BMI Screening 09/04/2026 09/04/2025 Pap Smear 08/18/2027 08/18/2024 Medical Devices Not [...] ORDERABLES Jayla l Result Performing Organization Address [facility] Co de Phone Number MANUALLY TRANSCRIBED RESULTS * Glucose tolerance, 3 hours (08/15/2025) Glucose Tolerance Test 3 Hour 141 MANUALLY TRANSCRIBED RESULTS Blood Venous blood / Unknown us Not In System Ref Prov LAB BLOOD ORDERABLES Jayla l Result Performing Organization Address [facility]/ZIP Co de Phone Number MANUALLY TRANSCRIBED RESULTS * Glucose, tolerance fasting (08/15/2025) Glucose Tolerance Test Fasting 82 MANUALLY TRANSCRIBED RESULTS Blood Venous blood / Unknown us Not In System Ref Prov LAB BLOOD ORDERABLES Jayla l Result Performing Organization Address [facility] Co de Phone Number MANUALLY TRANSCRIBED RESULTS [...] Jayla l Result MANUALLY TRANSCRIBED RESULTS * AFP Single Marker Scrn, Maternal, Serum (07/15/2025 10:17 AM EDT) Blood Venous blood / Unknown us Not In System Ref Prov LAB BLOOD ORDERABLES Jayla l Result Performing Organization Address [facility] Co de Phone Number MANUALLY TRANSCRIBED RESULTS * Unlisted Lab Test (07/04/2025 11:17 AM EDT) us Not In System Ref Prov LAB BLOOD ORDERABLES Jayla l Result Performing Organization Address [facility]/ZIP Co de Phone Number MANUALLY TRANSCRIBED RESULTS from Last 3 Months Insurance [employer] Care Teams Integration Analyst Relationship Specialty Start Date End Date Cruz Rodríguez MD [address] [place] [address] PCP - General Family Medicine 12/02/18
--- OUTSIDE RECORDS SUMMARY | 2025-09-06 13:22 | XMS_ITS | Encounter Summary ---
Author Organization [facility] Address [address] [facility] [place] [address] Care Team Providers Care Migratory Farm Hand Name Role Phone Cruz Rodríguez MD Unavailable [phone] Cruz Rodríguez MD Primary Care Provider [phone] Cruz Rodríguez MD Unavailable + [phone] Zenobia [place] IN FLIGHT REFUELING MANAGER Unavailable Trista Thao IN FLIGHT REFUELING MANAGER Unavailable [phone] Eliceo Beltran DO Primary Care Provider [phone] Eliceo Beltran DO Unavailable [phone] Encounter Details Date Type Department Care Team (Late st Contact Info) Description 05/01/2023 Abstract [facility] [address] 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 Not [...] PM EDT Routine [facility] [address] [place] [address] Zenobia Gutierrez PA [address] [facility] [place] [address] documented as of this encounter Visit Diagnoses Not on filedocumented in this encounter Care Teams Migratory Farm Hand Relationship Specialty Start Date End Date Cruz Rodríguez MD [address] [place] [address] PCP - [facility] 09/26/2111/25 Cruz Rodríguez MD [address] [place] [address] PCP - General Family Medicine 04/10/23 02/13/24 Cruz Rodríguez MD [address] [place] [address] [address] - [facility] 02/24/23 4 Eliceo Beltran DO [address] [place] [address] PCP - General Family Medicine 02/14/24 Eliceo Beltran DO [address] [place] [address] PCP - Medical [place] [employer] 07/27/24 11/25/99 Zenobia [place] NP [address] [place] [address] Nurse Practitioner Family Medicine 10/05/23 04/14/24 Trista Thao IN FLIGHT REFUELING MANAGER [address] [place] [address] Nurse Practitioner Pulmonary Disease 10/05/23 04/14/24 documented as of this encounter
--- OUTSIDE RECORDS SUMMARY | 2025-09-06 13:22 | XMS_ITS | Encounter Summary ---
Author Organization [employer] tem Address [facility][id number] [address] [place] [address] Care Team Providers Care Quality Assurance Name Role Phone Cruz Rodríguez MD Primary Care Provider [phone] Encounter Details Date Type Department Care Team [...] 09/10/2025 9:45 AM EDT Appointment Maternal Medicine [place] [address] [facility] [address] [place] [address] 09/10/2025 11:00 AM EDT Telemedicine Maternal Medicine [place] [address] [facility] [address] [place] [address] Quynh Clements MD [address] [facility], [address] [place] [address] 10/05/2025 3:00 PM EST Office Visit Maternal- Medicine at [facility] [address] [place] [address] Kayleigh Rizzo, PAAlbinC [address] [address] documented as of this encounter Visit Diagnoses Not on filedocumented in this encounter Care Teams Quality Assurance Relationship Specialty Start Date End Date Cruz Rodríguez MD [address] [place] [address] PCP - General Family Medicine 12/02/18 documented as of this encounter
--- OUTSIDE RECORDS SUMMARY | 2025-09-06 13:22 | XMS_ITS | Encounter Summary ---
Author Organization [employer] tem Address [id number] [address] [place] [address] Care Team Providers Care Turbine Engineer Name Role Phone Cruz Rodríguez MD Primary Care Provider [phone] Encounter Details Date Type Department Care Team (Late st Contact Info) Description 08/25/2020 [facility] [address] [phone] Christen Maxwell RN Social History Tobacco Use [...] 08/25/20 1637 * Telephone Encounter - Pam Chirstianson LPN - 08/25/2020 4:36 PM EDT Images [...] 09/10/2025 9:45 AM EDT Appointment Maternal Medicine [place] [address] [address] 09/10/2025 11:00 AM EDT Telemedicine Maternal Medicine [place] [address] [address] Quynh Clements MD [address], [address] [place] [address] 10/05/2025 3:00 PM EST Office Visit Maternal- Medicine at [facility] [address] [place] [address] Kayleigh Rizzo PA-C [address] [place] [address] documented as of this encounter Visit Diagnoses Not on filedocumented in this encounter Care Teams Turbine Engineer Relationship Specialty Start Date End Date Cruz Rodríguez MD [address] [place] [address] PCP - General Family Medicine 12/02/18 documented as of this encounter
--- OUTSIDE RECORDS SUMMARY | 2025-09-06 13:22 | XMS_ITS | CCD ---
Author Organization [facility] Care Team Providers Care Perianesthesia Rn Name Role Phone Unavailable Unavailable POCOPAL QUINTEROS Referring Unavailable CRUZ RODRÍGUEZ Primary Care Unavailable OPAL LARA Referring Unavailable CRUZ RODRÍGUEZ Primary Care Unavailable CRUZ RODRÍGUEZ Primary Care Physician Domo Hodges Unavailable TONIA DIALLO Attending Unavailable RITU RYDER Admitting Unavailable RITU RYDER Attending Unavailable Cruz Rodríguez MD Primary Care Provider Cruz Rodríguez MD Unavailable Cruz Rodríguez MD Primary Care Provider [phone] Cruz Rodríguez MD Unavailable Kita WILLOWER, Zenobia Unavailable Keesha WILLOWER, Trista R Unavailable [phone] Cruz Rodríguez MD Primary Care Provider [...] Unavailab Cruz Ross MD Primary Care Provider [phone] Kiesha DO, Nathan Attending Provider Kiesha, Nathan Admitting Unavailable Kiesha, Nathan Attending Unavailable Cruz Rodríguez Primary Care Unavailable KIESHA, Nathan R Attending Unavailable KIESHA, Nathan R Referring Unavailable KIESHA, Nathan R Admitting Unavailable KIESHA, Nathan R Attending Unavailable KIESHA, Nathan R Admitting Unavailable Kaftan DO, Nay R Unavailable [phone] Yomaira BELTRAN Attending Unavailable KAFTAN, G [...] KEANE Admitting Unavailable KAFTYomaira MARQUEZ Attending Unavailable KAFTYomaira MARQUEZ Admitting Unavailable KIESHA, Nathan R Consulting Unavailable KIESHA, DO Nathan R Consulting Unavailable KIESHA, Nathan R Consulting Unavailable KIESHA, Nathan R Attending Unavailable KIESHA, Nathan R Admitting Unavailable LAKHWINDERANA LAURA DUMONT Attending Unavailable LAKHWINDER, ANA LAURA TYSON Admitting Unavailable KERLINE AUGUSTIN Attending Unavailable KIESHA, NATHAN R Referring Unavailable CRUZ RODRÍGUEZ Primary Care Unavailable KIMFTANNAY R Attending Unavailable KIESHA, NATHAN Attending Unavailable KIESHA, NATHAN Attending Unavailable KIESHA, NATHAN Attending Unavailable KIESHA, NATHAN Attending Unavailable KAFTANNAY Attending Unavailable KIESHA, NATHAN Attending Unavailable LAKHWINDERMARBELLA DUMONT Attending Unavailable LAKHWINDERMARBELLA DUMONT Attending Unavailable Allergies Allergy Classification Reported Allergen(s) Allergy Type Date of Onset Reaction(s) Facility (4 sources) No Known Medication Allergies; Translations: [No Known Medication Allergies] Propensity to adverse reactions (disorder) [facility] Repository Medications Current Medications Medication Drug [...] for headaches 20 tablet 02/19/2024 05/01/2025 Discontinued atenolol 25 mg oral tablet (4 sources) [...] Glucose Monitoring Suppl (D-Care Glucometer) w/Device kit (11 sources) Start: 08-20-2025 End: 08-20-2026 Blood Glucose Monitoring Suppl (D-Care Glucometer) w/Device kit Indications: Gestational diabetes mellitus (GDM), antepartum, gestational diabetes method of control unspecified ([facility]) , Elevated glucose tolerance test 1 kit [...] spasm, # 30 tab(s), Refills(s) 0, Pharmacy: [facility] 858, 157, cm, 01/23/22 7:20:00 [...] Date: 02/02/21 Status: Ordered Repeat number: 1 Chris oral tablet (1 source) Start: 11-23-20 take 1 tablet by mouth once daily Chris oral tablet 1 tab(s), [...] Active Start: 02-09-20[address] take [address] [facility] twice daily Orilissa 200 MG Oral Tablet [...] daily. 90 tablet 0 01/10/2024 04/09/2024 Active ethinyl estradiol 0.035 mg / norgestimate 0.25 mg oral tablet (4 sources) Progestin, Estrogen Start: 01-15-2023 norgestimate-ethinyl estradiol (Ortho-Cyclen) 0.25-35 MG-MCG tablet 1 (one) time each day at the same time. 0 01/15/2023 Active Start: 08-04-2019 take 1 tablet by ghada once daily Norgestimate-Ethinyl Estradiol 0.25-35 mg-mcg tablet Active 1 TAB PO Daily August 04, 2019 12:00am [place]ah 0.25 -35 MG-MCG Oral for 28 [...] Quantity: 40.0 Unit: tab(s) Repeat number: 1 insulin glargine-yfgn 100 unit/mL (3 mL) insulin pen (1 source) Start: 09-04-2025 inject 2 [IU] by subcutaneous injection once, then inject 10 [IU] by subcutaneous injection at bedtime insulin glargine-yfgn 100 unit/mL (3 mL) insulin pen Indications: Diet controlled gestational diabetes mellitus (GDM) in second trimester , Essential hypertension affecting in third trimester Prime with 2 units and give 10 units subQ at bedtime. 15 mL 3 09/04/2025 Active isopropyl alcohol 0.7 ml/ml medicated pad (11 sources) Start: 08-20-2025 Alcohol Swabs (Alcohol Prep Pad) 70 % pads Indications: Gestational diabetes mellitus (GDM), antepartum, gestational diabetes method of control unspecified ([facility]) , Elevated glucose tolerance test Apply 1 [...] MR contrast administration guidelines link. labetalol hydrochloride 200 mg oral tablet (20 sources) beta-Adrenergic Negro Start: 09-03-2025 take 1 tablet by mouth in the morning labetalol (Normodyne) 200 MG tablet Indications: Gestational Hypertension Take 1 tablet (200 mg) by mouth in the morning and 1 tablet (200 mg) before bedtime. 60 tablet 3 09/03/2025 Active Start: 07-30-2025 End: 07-30-2026 take 1 tablet by mouth in the morning labetalol (Normodyne) 100 MG tablet Indications: Hypertension, unspecified type Take 1 tablet (100 mg) by mouth in the morning and 1 tablet (100 mg) before bedtime. 60 tablet 5 07/30/2025 09/03/2025 Discontinued Start: 11-28-2022 End: 11-28-2022 labetalol (Normodyne,Trandat e) injection 20 mg Start: 11-28-2022 End: 11-28-2022 labetalol (Normodyne,Trandat e) injection 20 mg Start: 11-28-2022 End: 11-28-2022 labetalol (Normodyne,Trandat e) 5 MG/ML injection - Pyxis ADS Override Pull take 2 tablets by mo ut three times daily labetaloL (NORMODYNE) 100 mg tablet Take 2 tablets (200 mg total) by mouth 3 (three) times a day. Active magnesium oxide 400 mg oral tablet (9 sources) Start: 05-01-2025 End: 09-04-2025 take 1 tablet by mouth once daily magnesium oxide (Mag-Ox) 400 MG tablet Indications: headache in first trimester ([facility]) Take 1 tablet (400 mg) by mouth Daily 30 tablet 3 05/01/2025 05/31/2025 Active meloxicam 15 mg oral tablet (15 sources) Nonsteroidal Anti-inflammatory Drug Start: 02-02-2021 End: [...] 90 tablet 1 10/23/2023 Active Start: 02-27-2023 End: 09-04-2025 metoprolol succinate ER (TOP ROL XL) 25 mg 24 hr tablet naproxen [...] day, # 14 tab(s), Refills(s) 0, [facility], 157, cm, 03/04/21 7:22:00 EDT, [...] Quantity: 1 Refills: 0 Ordered: 21-Jul-2020 Charlene Rodrgiuez DO Start : 21-Jul-2020 Active Comment on above: Take 1 tablet by ghada th once daily. Take 2 tablets by mo hih once daily. PNV no.95-ferrous fumarate-FA () 28 mg iron- 800 mcg tablet (5 sources) take 1 tablet by mouth in [...] MG tablet Indications: , unspecified gestational age ([facility]) , Encounter for supervision of normal first in first trimester ([facility]) Take 1 tablet by mouth Daily 30 tablet 11 05/01/2025 05/01/2026 Active Start: 05-01-2025 End: 05-01-2026 take 1 tablet by mouth once daily Vit-Fe Fumarate-FA ( Vitamins) 28-0.8 MG tablet Indications: , unspecified gestational age , Encounter for supervision of normal first in first trimester Take 1 tablet by mouth Daily 30 tablet 11 05/01/2025 05/01/2026 Active SUMAtriptan 100 mg oral tablet (10 [...] on above: Take 1 tablet by ghada every 4 hours as needed for pain. [...] 5 days 20 tablet 07/22/2024 07/27/2024 Active ascorbic acid 500 mg oral tablet (5 sources) Vitamin C Start: 10-25-2018 End: 09-04-2025 take 2 tablets by mouth in the morning ASCORBIC ACID WITH ISAURO HIPS 500 MG tablet Take 2 tablets (1,000 mg total) by mouth in the morning. 0 10/25/2018 09/04/2025 Discontinued () aspirin 325 mg / butalbital 50 mg / caffeine 40 mg oral capsule (8 sources) Platelet Aggregation Inhibitor, Barbiturate, Nonsteroidal Anti-inflammatory Drug, Central Nervous System Stimulant, Methylxanthine End: 09-04-2025 take 1 capsule by mouth every four hours as needed for headache butalbital-aspirin -caffeine (FIORINAL) 50-325-40 mg per capsule Take 1 capsule by mouth every 4 (four) hours as needed for headaches. 09/04/2025 Discontinued () atropine sulfate 0.0194 mg / hyoscyamine sulfate [...] sources) Corticosteroid Start: 11-28-2022 End: 11-28-2022 betamethasone acetate-betamethas one sodium phosphate (Celestone) injection 12 mg calcium chloride 0.0014 meq/ml / potassium chloride 0.004 meq/ml / sodium chloride 0.103 meq/ml / sodium lactate 0.028 meq/ml injectable solution (2 sources) Start: 11-28-2022 End: 11-30-2022 take 125 mL intravenously every hour 125 mL/hr, IntraVENous, Continuous, Starting on Sun11/28/22 at 0100, Pre-Delivery cetirizine hydrochloride 10 mg oral tablet (14 sources) Histamine-1 Receptor Antagonist Start: 06-09-2025 End: 06-09-2026 take 1 tablet by mouth once daily cetirizine (ZyrTEC ALLERGY) 10 MG tablet Indications: Allergy, sequela Take 1 tablet (10 mg) by mouth Daily 30 tablet 11 06/09/2025 07/15/2025 Discontinued chlordiazePOXIDE hydrochloride 5 mg / clidinium bromide 2.5 mg oral capsule (1 source) Anticholinergic, Benzodiazepine Start: 06-02-2020 take 1 capsule by mouth every eight hours chlordiazePOXIDE-C lidinium 5-2.5 MG 1 capsule before meals Orally Three times a day for 30 day(s) May, Not-Taking chlorhexidine gluconate 20 mg/ml medicated pad (2 sources) Start: 11-28-2022 End: 11-30-2022 apply 1 dose topically every six hours Topical, Every 6 hours, First dose on Sun11/28/22 at 0100, Pre-Delivery Apply to the affected area. Clean entire abdomen. cholecalciferol 0.125 mg oral capsule (5 sources) Vitamin D Start: 10-25-2018 End: 09-04-2025 take 1 capsule by mouth in the morning cholecalciferol, vitamin D3, (VITAMIN D3) 5,000 units capsule Take 1 capsule (5,000 Units total) by mouth in the morning. 0 10/25/2018 09/04/2025 Discontinued () desogestrel 0.15 mg / ethinyl estradiol 0.03 mg oral tablet (11 sources) Progestin, Estrogen Start: 07-22-2024 End: 10-20-2025 desogestrel-ethiny l estradiol (Apri) 0.15-30 MG-MCG tablet Indications: Dysmenorrhea, unspecified Take 1 tablet by mouth Daily 21 tablet 12 10/20/2024 01/19/2025 Discontinued (Other) diphenhydrAMINE (BENADryl) injection 25 mg (2 sources) Start: 11-30-2022 End: 12-02-2022 take 25 mg intravenously every six hours as needed diphenhydrAMINE (BENADryl) injection 25 mg Norethindrone-E.Estr adiol-Iron (1 source) Estrogen Start: 10-17-2017 End: 03-12-2019 take 1 tablet by mouth once daily Norethindrone-E.Es tradiol-Iron (Lo Loestrin Fe) 1 mg-10 mcg (24)/10 mcg (2) tablet Discontinued 1 TAB PO Daily October 17, 2017 1:00am March 12, 2019 6:15am Ethinyl Estradiol / Norethindrone (7 sources) Estrogen Start: 12-01-2018 End: 09-04-2025 take 0.05 ug by mouth once in the evening norethindrone ac-eth estradiol (MICROGESTIN 1/20) 1-20 mg-mcg per tablet Take 1 tablet by mouth in the evening. 0 12/01/2018 09/04/2025 Discontinued () Start: 12-01-2018 take 0.05 ug by mout h once in the evening norethindrone ac-eth estradiol (MICROGESTIN 1/20) 1-20 mg-mcg per tablet Take 1 tablet by mouth in the evening. 0 12/01/2018 Active Start: 11-23-2016 take 1 tablet by ghada th once daily Dasetta oral tablet 1 tab(s), Oral, Daily, Refill(s) 0, control/menstrual regulation Start Date: 11/23/16 Status: Ordered famotidine 20 mg oral tablet (2 sources) Histamine-2 Receptor Antagonist Start: 11-30-2022 End: 12-02-2022 take 20 mg by mouth twice daily as needed for gastroesophageal reflux disease 20 mg, Oral, 2 times daily PRN, heartburn, Starting on Sun11/30/22 at 0608, Renal dose per pharmacy for peptic ulcer prophylaxis. ferrous sulfate 325 mg oral tablet (5 sources) Start: 11-30-2022 End: 12-02-2022 take 325 mg by mouth twice daily at mealtime 325 mg, Oral, 2 times daily with meals, First dose on Sun11/30/22 at 0800, Start if Hgb less than 10. take 1 tablet by mouth in the mo rning Ferrous Sulfate (IRON PO) Take 1 tablet by mouth in the morning. Active FLUoxetine 20 mg oral capsule (17 sources) [...] 04, 2019 8:19am take 1 capsule by [facility] once daily FLUoxetine (PROZAC) 10 mg capsule Take 10 mg by mouth once daily. 0 Active Comment on above: Take 10 mg by mouth once daily. fluticasone propionate 0.05 mg/actuat metered dose nasal spray (13 sources) Corticosteroid Start: 5 End: 6 take 1 spray(s) nasal route once daily fluticasone (Flonase) 50 MCG/ACT nasal spray Indications: Sinusitis, unspecified chronicity, unspecified location Administer 1 spray into each nostril Daily Shake gently. Before first use, prime pump. After use, clean tip and replace cap. 16 g 12 06/22/2025 07/15/2025 Discontinued End: 09-04-2025 take 1 spray(s) nasal route in the morning fluticasone propionate (FLONASE) 50 mcg/actuation nasal spray Administer 1 spray into each nostril in the morning. 09/04/2025 Discontinued () take 1 spray(s) nasa l route in the morning fluticasone (Flonase) 50 MCG/ACT nasal spray Administer 1 spray into affected nostril(s) in the morning. Active lanolin 1000 mg/ml topical cream (2 sources) Start: 11-30-2022 End: 12-02-2022 Topical, As needed, dry skin , nipple discomfort, Starting on Constance 11/30/22 at 0608, Apply to affected area. 500 [...] Start: 07-14-2022 take 1 tablet by ghada every six hours as needed for nausea [...] days, # 9 tab(s), Refills(s) 0, Pharmacy: [facility] 858, 157, cm, 03/04/21 7:22:00 [...] milk promethazine hydrochloride 12.5 mg oral tablet (13 sources) Phenothiazine Start: 05-25-2025 End: 07-15-2025 take [...] nausea. 30 tablet 2 05/25/2025 07/15/2025 Discontinued End: 09-04-2025 take 12.5 mg rectal route every six hours as needed for nausea and vomiting promethazine (PHENERGAN) 12.5 mg suppository Insert 1 suppository (12.5 mg total) into the rectum every 6 (six) hours as needed for nausea or vomiting. 09/04/2025 Discontinued () rizatriptan 5 mg disintegrating oral tablet (5 sources) Serotonin-1b and Serotonin-1d Receptor Agonist Start: 10-24-2018 End: 09-04-2025 rizatriptan RATE INSERTER (MAXALT-RATE INSERTER) 5 mg disintegrating tablet Dissolve 1 tablet (5 mg total) on tongue as needed. 0 10/24/2018 09/04/2025 Discontinued () 5 ml sodium chloride 9 mg/ml injection (2 sources) Start: 11-28-2022 End: 11-30-2022 10 mL, IntraVENous, Every 12 hours scheduled (2 times per day), First dose on Sun11/28/22 at 0900, Pre-Delivery vitamin b12 1 mg extended release oral tablet (5 sources) Vitamin B12 Start: 10-25-2018 End: 09-04-2025 take 1 tablet by mouth in the morning cyanocobalamin, vitamin B-12, (VITAMIN B-12) 1,000 mcg tablet extended release Take 1 tablet (1 mg total) by mouth in the morning. 0 10/25/2018 09/04/2025 Discontinued () witch yesi 500 mg/ml medicated pad (2 sources) Start: 11-30-2022 End: 12-02-2022 Topical, As needed, hemorrhoids, For perineal pain [...] tolerance complicating ; childbirth; or the puerperium (9 sources) Gestational diabetes mellitus; Translations: [Gestational diabetes [...] List clean-u p per request of Phys. [facility] Cmte Headache; including migraine (20 sources) Migraine; Translations: [Migraine, unspecified, not intractable, without status migrainosus] Onset: 10-08-2020 08-07-2018 Chronic Comment on above: Problem List clean-u p per request of Phys. [facility] Cmte Headache; including migraine (14 sources) Headache; Translations: [Headache, unspecified] Onset: 01-31-2023 02-14-2021 Episodic Hemorrhoids (1 source) Hemorrhoids; Translations: [Unspecified hemorrhoids] Onset: 07-14-2022 Episodic Hypertension complicating ; childbirth and the puerperium (4 sources) Hypertension complicating ; Translations: [Unspecified maternal hypertension, unspecified trimester] Onset: 09-04-2025 09-03-2025 Chronic Hypertension complicating ; childbirth and the puerperium [...] List clean-u p [facility] Nutritional deficiencies (20 sources) Vitamin D deficiency; [...] 02-19-2024 Chronic Other and delivery including normal (14 sources) ; Translations: [Encounter for supervision of [...] [26 weeks gestation of ] 08-27-2025 Episodic Residual codes; unclassified (2 sources) Gestation period, 27 weeks; Translations: [27 weeks gestation of ] 09-03-2025 Episodic Spondylosis; intervertebral disc disorders; other back [...] Onset: 08-24-2023 Episodic Other female genital disorders (11 sources) Chronic pelvic pain of female; Translations: [...] Name Value Interpretation Reference Range Facility ALL BUNon 09-03-2025 Urea nitrogen [Mass/Vol] 8 mg/dL 7.0 - 18.0 mg/dL [facility] ALL URIC ACIDon 09-03-2025 Urate [Mass/Vol] 3.5 mg/dL 2.6 - 6.0 mg/dL [facility] Isidro 09-03-2025 ALT [Catalytic activity/Vol] 40 U/L 14 - 59 [facility] 09-03-2025 AST [Catalytic activity/Vol] 24 U/L 15 - 37 U/L [facility] No Panel Informationon 09-03 Interpretation and review of laboratory results Abnormal [facility] CREATININEon 09-03-2025 Creatinine [Mass/Vol] 0.42 mg/dL Low 0.55 - 1.02 mg/dL [facility] GFR/1.73 sq M.predicted CKD-EPI (S/P/Bld) [Vol rate/Area] >60 >=60 mL/min/1.73 m 2 [facility] EGFR-NON AF MICRONESIAN >60 >=60 mL/min/1.73 m 2 [facility] URINE T PROTEIN CREAT RA Jacques 09-03-2025 CREATININE URINE RANDOM <13.00 Low 20.00 - 300.00 mg/dL [facility] TOTAL PROTEIN URINE RANDOM <6.0 NINF - 11.9 mg/dL [facility] Urinalysis macro (dipstick) panel (U)on 09-03-2025 Bilirubin, UA Negative Negative - 4(70) +++ mg/dL [facility] Blood, UA Negative Negative - 50 Teodoro/mcL [facility] Clarity, UA Clear [facility] Color, UA Yellow [facility] Glucose, UA Negative Negative - 1999(110) ++++ mg/dL [facility] Interpretation and review of laboratory results Normal [facility] Ketones, UA Negative Negative - 160(16) ++++ mg/dL [facility] Leukocytes, UA Negative Negative - 500+++ Robinson/mcL [facility] Nitrite, UA Negative Negative - Positive [facility] pH, UA 6.5 5 - 9 [facility] Protein, UA Negative Negative - 1999(20) ++++ mg/dL [facility] Spec Grav, UA 1.005 1 - 1.03 [facility] Urobilinogen, UA 2.0 0.2 - 12 mg/dL [facility] TOTAL PROTEIN 24 HOUR UR INEon 08-29-2025 Interpretation and review of laboratory results Abnormal [facility] Protein (U) [Mass/Vol] 22.6 mg/dL High NINF - 11.9 mg/dL [facility] T[facility] PR[facility]IN 24 HOUR [facility] TOTAL VOLUME 24 HOUR URINE 600 mL/24hr [facility] ALL CBC WITH AUTO DIFFon BASOPHILS ABSOLUTE AUTO 0.1 [facility] Basophils/100 WBC (Bld) 0.5 % 0.2 - 2.0 % [facility] Eosinophils/100 WBC (Bld) 1.4 % 0.9 - 7.0 % [facility] Erythrocyte distribution width (RBC) [Ratio] 13 % 11.0 - 15.0 % [facility] Hematocrit (Bld) [Volume fraction] 34.4 % Low 36.0 - 48.0 % [facility] Hemoglobin (Bld) [Mass/Vol] 11.3 g/dL Low 12.0 - 16.0 g/dL [facility] IMMATURE GRANULOCYTES ABS AUTO 0.59 High [facility] Immature granulocytes/100 WBC (Bld) 4.4 % High 0.0 - 0.5 % [facility] Interpretation and review of laboratory results Abnormal [facility] LYMPHOCYTES ABSOLUTE AUTO 2.4 [facility] Lymphocytes/100 WBC (Bld) 17.8 % Low 20.5 - 60.0 % [facility] MCH (RBC) [Entitic mass] 29.4 pg 26.7 - 34.0 pg [facility] MCHC (RBC) [Mass/Vol] 32.8 g/dL 29.9 - 35.2 g/dL [facility] MCV (RBC) [Entitic vol] 89.4 fL 81.0 - 99.0 fL [facility] MONOCYTES ABSOLUTE AUTO 1.1 High [facility] Monocytes/100 WBC (Bld) 8.1 % 1.7 - 12.0 % [facility] NEUTROPHILS ABSOLUTE AUTO 9 High [facility] Neutrophils/100 WBC (Bld) 67.8 % 43.0 - 75.0 % [facility] Platelet mean volume (Bld) [Entitic vol] 9.6 fL 9.5 - 13.5 fL [facility] TBH EO # 0.2 [facility]H PLT 270 [facility] RBC 3.85 Low [facility] WBC 13.3 High [facility] URINE T PROTEIN CREAT RA TIOon 08-27-2025 CREATININE URINE RANDOM <13.00 Low 20.00 - 300.00 mg/dL [facility] Interpretation and review of laboratory results Abnormal [facility] TOTAL PROTEIN URINE RANDOM <6.0 NINF - 11.9 mg/dL [facility] US OB BPP W NON-STRESS on 08-27-2025 [place] [address] Ultrasound Report Signed Patient: DRISS GAMA MR#: [id number] : 1995 Acct:[id number] Age/Sex: 30 / F ADM Date: Loc: [place] [address]: KUNAL HYATT M.D. Ordering Physician: Marbella Keane Date of Service: 08/27/25 Procedure(s): US OB BPP w non-stress Accession Number(s): [id number] cc: Le Keane G ROBERT [place] [id number] Patient Name: DRISS GAMA MRN: [facility]:[id number] date: 1995 Sex: F Assigned Patient Location: LAB Current Patient Location: LAB Accession/Order Number: [id number] Exam Date: 08/27/2025 17:37 Report Date: 08/27/2025 [...] Morillo M.D. 08/27/2025 6:02 PM Dictation Location: [place] [address] Electronically authenticated by: [id number] Y Date: 08/27/2025 18:02 Dictated By: Jp Morillo D.O. Signed By: 08/27/251804 DD/ 01 TD/TT: Gear Grinder: [facility] Aura Cabral MD - 08/27/2025 [place] [address] Ultrasound Report Signed Patient: DRISS GAMA MR#: [id number] : 1995 Acct:[id number] Age/Sex: 30 / F ADM Date: Loc: [facility] 250- Attending Dr: KUNAL HYATT M.D. Ordering Physician: Marbella Keane Date of Service: 08/27/25 Procedure(s): US OB BPP w non-stress Accession Number(s): [id number] cc: Le Keane G ROBERT [place] [id number] Patient Name: DRISS GAMA MRN: [facility]:[id number] date: 1995 Sex: F Assigned Patient Location: LAB Current Patient Location: LAB Accession/Order Number: [id number] Exam Date: 08/27/2025 17:37 Report Date: 08/27/2025 [...] Morillo M.D. 08/27/2025 6:02 PM Dictation Location: [place] [address] Electronically authenticated by: [id number] Y Date: 08/27/2025 18:02 Dictated By: Jp Morillo D.O. Signed By: 08/27/251804 DD/ 01 TD/TT: Gear Grinder: [facility] Radiology Study observation (narrative) [facility] US OB BPP W NON-STRESS Ordered By: Radiologist Radiology on 08-27-2025 [facility] Work Phone: Urinalysis macro (dipstick) panel (U)on 08-27-2025 Bilirubin, UA Negative Negative - 4(70) +++ mg/dL [facility] Blood, UA Negative Negative - 50 Teodoro/mcL [facility] Clarity, UA Clear [facility] Color, UA Yellow [facility] Glucose, UA Negative Negative - 1999(110) ++++ mg/dL [facility] Interpretation and review of laboratory results Normal [facility] Ketones, UA Negative Negative - 160(16) ++++ mg/dL [facility] Leukocytes, UA Negative Negative - 500+++ Robinson/mcL [facility] Nitrite, UA Negative Negative - Positive [facility] pH, UA 6 5 - 9 [facility] Protein, UA Negative Negative - 2000(20) ++++ mg/dL [facility] Spec Grav, UA 1.015 1 - 1.03 [facility] Urobilinogen, UA 2.0 0.2 - 12 mg/dL [facility] URINE CULTURE, ROUTINEon Bacteria identified Cx Nom (U) Urine Culture, Routine [facility] Bacteria identified Cx Nom (U) Mixed urogenital robert [facility] Bacteria identified Cx Nom (U) 25,000-50,000 colony forming units per mL [facility] Bacteria identified Cx Nom (U) [facility] Bacteria identified Cx Nom (U) [address], [place] [id number] [facility] Bacteria identified Cx Nom (U) Head Of Mathematics: Cm Sandoval PhD, Phone: [phone] [facility] 2nd hr Glucose Tolerance 100 gm loadon 08-15-2025 Glucose Tolerance Test 2 Hour 169 [facility] Capillary Glucose POCon 07-28 Glucose [Mass/Vol] 88 mg/dL Normal 55-99 [facility] Comment on above: Performed By: #### 2 [id number] #### [facility] [address] [place] [address] Glu 1 Hron 08-15-2025 Glucose [Mass/Vol] 152 mg/dL Normal 55-180 [facility] Comment on above: Performed By: #### 2 [id number] #### [facility] [address] [place] [address] Glu 2 Hron 08-15-2025 Glucose [Mass/Vol] 169 mg/dL High 55-155 [facility] Comment on above: Performed By: #### 2 [id number] #### [facility] [address] [place] [address] Glu 3 Hron 08-15-2025 Glucose [Mass/Vol] 141 mg/dL High 55-140 [facility] Comment on above: Performed By: #### 2 [id number] #### [facility] [address] [place] [address] Glu Fastingon 08-15-2025 Glucose [Mass/Vol] 82 mg/dL Normal 55-99 [facility] Comment on above: Performed By: #### 2 [id number] #### [facility] [address] [place] [address] Glucose tolerance, 1 houron 08-15-2025 Glucose Tolerance Test 1 Hour 152 [facility] Glucose tolerance, 3 hourson 08-15-2025 Glucose Tolerance Test 3 Hour 141 [facility] Glucose, tolerance fastingon 08-15-2025 Glucose Tolerance Test Fasting 82 [facility] No Panel Informationon 08-15 [facility] CBC w/ Auto Diffon 5 Basophil Absolute 0.1 E9/L Normal 0.0-0.2 [facility] Comment on above: Performed By: #### 2 [id number] #### [facility] [address] [place] [address] Basophils/100 WBC (Bld) 0.6 % Normal 0.0-2.0 [facility] Comment on above: Performed By: #### 2 [id number] #### [facility] [address] [place] [address] Eos Absolute 0.1 E9/L Normal 0.0-0.5 [facility] Comment on above: Performed By: #### 2 [id number] #### [facility] [address] [place] [address] Eosinophils/100 WBC (Bld) 1.0 % Normal 0.0-8.0 [facility] Comment on above: Performed By: #### 2 [id number] #### [facility] [address] [place] [address] Erythrocyte distribution width (RBC) [Ratio] 12.9 % Normal 10.9-14.2 [facility] Comment on above: Performed By: #### 2 [id number] #### [facility] [address] [place] [address] Hematocrit (Bld) [Volume fraction] 33.1 % Low 34.0-46.0 [facility] Comment on above: Performed By: #### 2 [id number] #### [facility] [address] [place] [address] Hemoglobin (Bld) [Mass/Vol] 11.4 g/dL Low 12.0-16.0 [facility] Comment on above: Performed By: #### 2 018586 #### [facility] [address] [place] [address] Lymph Absolute 2.0 E9/L Normal 1.0-4.0 [facility] Comment on above: Performed By: #### 2 [id number] #### [facility] [address] [place] [address] Lymphocytes/100 WBC (Bld) 19.6 % Normal 14.0-50.0 [facility] Comment on above: Performed By: #### 2 390015 #### [facility] [address] [place] [address] MCH (RBC) [Entitic mass] 29.9 pg Normal 27.0-34.0 [facility] Comment on above: Performed By: #### 2 092434 #### [facility] [address] [place] [address] MCHC (RBC) [Mass/Vol] 34.4 g/dL Normal 31.4-36.0 [facility] Comment on above: Performed By: #### 2 448008 #### [facility] [address] [place] [address] MCV (RBC) [Entitic vol] 86.7 fL Normal 80.0-100.0 [facility] Comment on above: Performed By: #### 2 432283 #### [facility] [address] [place] [address] [place] Absolute 0.5 E9/L Normal 0.2-1.0 [facility] Comment on above: Performed By: #### 2 [id number] #### [facility] [address] [place] [address] Monocytes/100 WBC (Bld) 4.6 % Normal 4.0-14.0 [facility] Comment on above: Performed By: #### 2 039526 #### [facility] [address] [place] [address] Neutro Absolute 7.5 E9/L Normal 2.0-7.5 [facility] Comment on above: Performed By: #### 2 883679 #### [facility] [address] [place] [address] Neutro Auto 74.2 % Normal 36.0-75.0 [facility] Comment on above: Performed By: #### 2 716794 #### [facility] [address] [place] [address] Platelet 294.0 E9/L Normal 150.0-500.0 [facility] Comment on above: Performed By: #### 2 446990 #### [facility] [address] [place] [address] Platelet mean volume (Bld) [Entitic vol] 8.1 fL Normal 6.4-10.8 [facility] Comment on above: Performed By: #### 2 541960 #### [facility] [address] [place] [address] RBC 3.8 E12/L Low 4.3-5.9 [facility] Comment on above: Performed By: #### 2 [id number] #### [facility] [address] [place] [address] WBC 10.1 E9/L Normal 4.0-11.0 [facility] Comment on above: Performed By: #### 2 482925 #### [facility] [address] [place] [address] Ferritinon 08-12-2025 Ferritin Lvl 7 ng/mL Low 11-307 [facility] Comment on above: Performed By: #### 2 377957 #### [facility] [address] [place] [address] Folateon 08-12-2025 Folate Lvl >22.3 Normal >=6.7 [facility] Comment on above: Performed By: #### 2 481794 #### [facility] [address] [place] [address] Gest Scr Glu 1 Hron 08-12-20 25 Glucose [Mass/Vol] 155 mg/dL High 55-140 [facility] Comment on above: Performed By: #### 3 [id number] #### [facility] [address] [place] [address] Glucose 1h post 50g loadon 0 08-12-2025 Glucose, 1 hr PP 50GM dose 155 [facility] Ironon 08-12-2025 Iron 55 microgram/dL Normal 35-153 [facility] Comment on above: Performed By: #### 2 011521 #### [facility] [address] [place] [address] No Panel Informationon 08-12 [facility] TIBC Calculatedon 08-12-2025 TIBC 637 microgram/dL High 250-400 [facility] Comment on above: Performed By: #### 1 [id number] #### [facility] [address] [place] [address] Transferrin [Mass/Vol] 455 mg/dL High 200-370 [facility] Comment on above: Performed By: #### 1 [id number] #### [facility] [address] [place] [address] US OB LIMITED 1+ FETUSESon 0 08-12-2025 [...] UA Negative Negative - 4(70) +++ mg/dL [facility] Blood, UA Negative Negative - 50 Teodoro/mcL [facility] Clarity, UA Clear [facility] Color, UA Yellow [facility] Glucose, UA Negative Negative - 1999(110) ++++ mg/dL [facility] Interpretation and review of laboratory results Abnormal [facility] Ketones, UA Negative Negative - 160(16) ++++ mg/dL [facility] Leukocytes, UA Negative Negative - 500+++ Robinson/mcL [facility] Nitrite, UA Negative Negative - Positive [facility] pH, UA 6 5 - 9 [facility] Protein, UA Negative Negative - 1999(20) ++++ mg/dL [facility] Spec Grav, UA 1.01 1 - 1.03 [facility] Urobilinogen, UA 1.0 0.2 - 12 mg/dL [facility] Vit B12on 08-12-2025 Cobalamin (Vitamin B12) [Mass/Vol] 205 pg/mL Normal 50-1500 [facility] Comment on above: Performed By: #### 2 [id number] #### [facility] [address] [place] [address] CBC w/ Auto Diffon 5 Basophil Absolute 0.0 E9/L Normal 0.0-0.2 [facility] Comment on above: Performed By: #### 2 761402 #### [facility] [address] [place] [address] Basophils/100 WBC (Bld) 0.2 % Normal 0.0-2.0 [facility] Comment on above: Performed By: #### 2 132556 #### [facility] [address] [place] [address] Eos Absolute 0.1 E9/L Normal 0.0-0.5 [facility] Comment on above: Performed By: #### 2 340576 #### [facility] [address] [place] [address] Eosinophils/100 WBC (Bld) 0.5 % Normal 0.0-8.0 [facility] Comment on above: Performed By: #### 2 083458 #### [facility] [address] [place] [address] Erythrocyte distribution width (RBC) [Ratio] 13.0 % Normal 10.9-14.2 [facility] Comment on above: Performed By: #### 2 635111 #### [facility] [address] [place] [address] Hematocrit (Bld) [Volume fraction] 31.9 % Low 34.0-46.0 [facility] Comment on above: Performed By: #### 2 227013 #### [facility] [address] [place] [address] Hemoglobin (Bld) [Mass/Vol] 11.1 g/dL Low 12.0-16.0 [facility] Comment on above: Performed By: #### 2 447883 #### [facility] [address] [place] [address] Lymph Absolute 2.1 E9/L Normal 1.0-4.0 [facility] Comment on above: Performed By: #### 2 634121 #### [facility] [address] [place] [address] Lymphocytes/100 WBC (Bld) 16.2 % Normal 14.0-50.0 [facility] Comment on above: Performed By: #### 2 328195 #### [facility] [address] [place] [address] MCH (RBC) [Entitic mass] 29.9 pg Normal 27.0-34.0 [facility] Comment on above: Performed By: #### 2 911129 #### [facility] [address] [place] [address] MCHC (RBC) [Mass/Vol] 34.8 g/dL Normal 31.4-36.0 [facility] Comment on above: Performed By: #### 2 152699 #### [facility] [address] [place] [address] MCV (RBC) [Entitic vol] 85.7 fL Normal 80.0-100.0 [facility] Comment on above: Performed By: #### 2 806270 #### [facility] [address] [place] [address] [place] Absolute 0.9 E9/L Normal 0.2-1.0 [facility] Comment on above: Performed By: #### 2 351788 #### [facility] [address] [place] [address] Monocytes/100 WBC (Bld) 7.0 % Normal 4.0-14.0 [facility] Comment on above: Performed By: #### 2 773466 #### [facility] [address] [place] [address] Neutro Absolute 9.7 E9/L High 2.0-7.5 [facility] Comment on above: Performed By: #### 2 034572 #### [facility] [address] [place] [address] Neutro Auto 76.1 % High 36.0-75.0 [facility] Comment on above: Performed By: #### 2 893169 #### [facility] [address] [place] [address] Platelet 307.0 E9/L Normal 150.0-500.0 [facility] Comment on above: Performed By: #### 2 270703 #### [facility] [address] [place] [address] Platelet mean volume (Bld) [Entitic vol] 8.0 fL Normal 6.4-10.8 [facility] Comment on above: Performed By: #### 2 555896 #### [facility] [address] [place] [address] RBC 3.7 E12/L Low 4.3-5.9 [facility] Comment on above: Performed By: #### 2 993942 #### [facility] [address] [place] [address] WBC 12.8 E9/L High 4.0-11.0 [facility] Comment on above: Performed By: #### 2 357030 #### [facility] [address] [place] [address] CMPon 08-01-2025 CO2 [Moles/Vol] 20 mmol/L Low 21-31 [facility] Comment on above: Performed By: #### 2 433121 #### [facility] [address] [place] [address] Anion gap [Moles/Vol] 16 mmol/L Normal 6-16 [facility] Comment on above: Performed By: #### 2 609837 #### [facility] [address] [place] [address] Albumin [Mass/Vol] 3.8 g/dL Normal 3.3-5.0 [facility] Comment on above: Performed By: #### 2 581196 #### [facility] [address] [place] [address] Albumin/Globulin [Mass ratio] 1.3 {ratio} Normal 1.1-2.2 [facility] Comment on above: Performed By: #### 2 333221 #### [facility] [address] [place] [address] Alk Phos 78 Int._Unit/L Normal 21-98 [facility] Comment on above: Performed By: #### 2 [id number] #### [facility] [address] [place] [address] ALT 21 Int._Unit/L Normal 6-46 [facility] Comment on above: Performed By: #### 2 [id number] #### [facility] [address] [place] [address] AST 17 Int._Unit/L Normal 5-43 [facility] Comment on above: Performed By: #### 2 941184 #### [facility] [address] [place] [address] Bili Total 0.8 mg/dL Normal 0.0-1.1 [facility] Comment on above: Performed By: #### 2 552331 #### [facility] [address] [place] [address] BUN/Creat Ratio 18 No Units Normal 10-20 [facility] Comment on above: Performed By: #### 2 044920 #### [facility] [address] [place] [address] Calcium [Mass/Vol] 8.9 mg/dL Normal 8.9-11.1 [facility] Comment on above: Performed By: #### 2 329168 #### [facility] [address] [place] [address] Chloride [Moles/Vol] 104 mmol/L Normal 101-111 [facility] Comment on above: Performed By: #### 2 943541 #### [facility] [address] [place] [address] Creatinine [Mass/Vol] 0.6 mg/dL Normal 0.5-1.3 [facility] Comment on above: Performed By: #### 2 646129 #### [facility] [address] [place] [address] Globulin (S) [Mass/Vol] 3.0 g/dL Normal 1.4-4.0 [facility] Comment on above: Performed By: #### 2 572014 #### [facility] [address] [place] [address] Glucose [Mass/Vol] 92 mg/dL Normal 55-199 [facility] Comment on above: Performed By: #### 2 752355 #### [facility] [address] [place] [address] Potassium [Moles/Vol] 3.7 mmol/L Normal 3.5-5.3 [facility] Comment on above: Performed By: #### 2 123628 #### [facility] [address] [place] [address] Protein [Mass/Vol] 6.8 g/dL Normal 6.0-7.8 [facility] Comment on above: Performed By: #### 2 [id number] #### [facility] [address] [place] [address] Sodium [Moles/Vol] 136 mmol/L Normal 135-145 [facility] Comment on above: Performed By: #### 2 002085 #### [facility] [address] [place] [address] Urea nitrogen [Mass/Vol] 11 mg/dL Normal 5-21 [facility] Comment on above: Performed By: #### 2 455469 #### [facility] [address] [place] [address] Lipid Panelon 08-01-2025 Cholesterol [Mass/Vol] 239 mg/dL High 120-200 [facility] Comment on above: Performed By: #### 2 628826 #### [facility] [address] [place] [address] Cholesterol in HDL [Mass/Vol] 88 mg/dL Invalid Interpretation Code [facility] Comment on above: Result Comment: '>= 60 LOW RISK' '<= 40 HIGH RISK' Performed By: #### 2 539298 #### [facility] [address] [place] [address] Cholesterol in LDL [Mass/Vol] 144 mg/dL High <=129 [facility] Comment on above: Performed By: #### 2 536247 #### [facility] [address] [place] [address] Cholesterol in VLDL [Mass/Vol] 40 mg/dL Normal 7-40 [facility] Comment on above: Performed By: #### 2 007340 #### [facility] [address] [place] [address] Triglyceride [Mass/Vol] 202 mg/dL High <=149 [facility] Comment on above: Performed By: #### 2 871253 #### [facility] [address] [place] [address] eGFRon 08-01-2025 eGFR 123 mL/min/1.73 m2 Normal >=59 [facility] Comment on above: Performed By: #### 1 [id number] #### [facility] [address] [place] [address] AFP, SERUM, OPEN SPINA BIFID Aon 07-18-2025 AFP MOM 0.95 . [facility] AFP VALUE 59.2 ng/mL . [facility] COMMENT: Comment . [facility] Comment on above: Amy Ramos , Ph.D., [facility] Director References: Available Upon Request. Multiples Of Median Cutoffs For AFP Elevations Hsieh 2.5 Black 2.8 IDD 2.0 Twins 4.5 Abbreviation Definitions IDD - Insulin Dep Diabetes OSBR - Open Spina Bifida Risk For further inquiries contact [employer] at [phone]. This test was developed and its performance characteristics determined by [employer] It has not been cleared or approved by the Food and Drug Administration. Performed at: [facility] [address] [place], [place] [id number] Head Of Mathematics: Dona Justin [facility], Phone: [phone] GEST. AGE ON COLLECTION DATE 20.6 . weeks [facility] GESTAT. AGE BASED ON LMP . [facility] Comment on above: Recalculations are n ot recommended when gestational dating by LMP and ultrasound are within 10 days. INSULIN DEP DIABETES No . [facility] INTERPRETATION Comment . [facility] Comment on above: Interpretation: Scre en Negative [...] Customer Services to discuss available options. The [employer] recommends amniocentesis be offered to women age 35 and older. [age] [facility] MULTIPLE GESTATION No . [facility] OS[place] RISK [address] [place] [address] . [facility] RACE . [facility] RESULTS Report . [facility] TEST RESULTS: Negative . [facility] WEIGHT 146 . lbs [facility] N N LMP [id number] 2 17 N 1 Y 146 N N N N N White/ [facility] US OB 14+ WEEKS ANATOMY SCAN on [...] II, MD, PHD at 16-Jul-2025 08:07:07 AM [facility] Normal Not Available Comment on above: Order Comment: US OB ANATOMY SINGLE W US OB CERVICAL LENGTH Estimated Date of Delivery: 11/28/25 Gestational Age as of 06/22/2025: 17w2d Urinalysis macro (dipstick) panel (U)on 07-15-2025 Bilirubin, UA Negative Negative - 4(70) +++ mg/dL [facility] Blood, UA Negative Negative - 50 Te[facility]oro[facility] Clarity, UA Clear [facility] Color, UA Yellow [facility] Glucose, UA Negative Negative - 1999(110) ++++ mg/dL [facility] Interpretation and review of laboratory results Normal [facility] Ketones, UA Negative Negative - 160(16) ++++ mg/dL [facility] Leukocytes, UA Negative Negative - 500+++ Robinson/mcL [facility] Nitrite, UA Negative Negative - Positive [facility] pH, UA 6 5 - 9 [facility] Protein, UA Negative Negative - 1999(20) ++++ mg/dL [facility] Spec Grav, UA 1.01 1 - 1.03 [facility] Urobilinogen, UA 1.0 0.2 - 12 mg/dL [facility] RECURRENT VAGINITIS (HTRX)on 06-24-2025 ATOPOBIUM VAGINAE 0 [facility] ATOPOBIUM VAGINAE Not detected [facility] BVAB 2,3 (BACTERIAL VAGINOSIS ASSOCIATED BACTERIA 2, 3); MOBILUNCUS SPP 0 [facility] BVAB 2,3 (BACTERIAL VAGINOSIS ASSOCIATED BACTERIA 2, 3); MOBILUNCUS SPP Not detected [facility] RADHA ALBICANS, PARAPSILOSIS, TROPICALIS 0 [facility] RADHA ALBICANS, PARAPSILOSIS, TROPICALIS Not detected [facility] RADHA GLABRATA 0 [facility] RADHA GLABRATA Not detected [facility] RADHA KRUSEI 0 [facility] RADHA KRUSEI Not detected [facility] CHLAMYDIA TRACHOMATIS 0 [facility] CHLAMYDIA TRACHOMATIS Not detected N [facility] GARDNERELLA VAGINALIS 17.967 Abnormal [facility] GARDNERELLA VAGINALIS Detected Abnormal [facility] Interpretation and review of laboratory results Abnormal [facility] MEGASPHAERA (TYPES 1, 2) 0 [facility] MEGASPHAERA (TYPES 1, 2) Not detected [facility] MYCOPLASMA GENITALIUM 0 [facility] MYCOPLASMA GENITALIUM Not detected N [facility] NEISSERIA GONORRHOEAE 0 [facility] NEISSERIA GONORRHOEAE Not detected N [facility] TRICHOMONAS VAGINALIS 0 [facility] TRICHOMONAS VAGINALIS Not detected N [facility] Urinalysis macro (dipstick) panel (U)on 06-22-2025 Bilirubin, UA Negative Negative - 4(70) +++ mg/dL [facility] Blood, UA Negative Negative - 50 Teodoro/mcL [facility] Clarity, UA Clear [facility] Color, UA Yellow [facility] Glucose, UA Negative Negative - 1999(110) ++++ mg/dL [facility] Interpretation and review of laboratory results Normal [facility] Ketones, UA Negative Negative - 160(16) ++++ mg/dL [facility] Leukocytes, UA Negative Negative - 500+++ Robinson/mcL [facility] Nitrite, UA Negative Negative - Positive [facility] pH, UA 6 5 - 9 [facility] Protein, UA Negative Negative - 1999(20) ++++ mg/dL [facility] Spec Grav, UA 1.005 1 - 1.03 [facility] Urobilinogen, UA 1.0 0.2 - 12 mg/dL [facility] Urinalysis macro (dipstick) panel (U)on 05-25-2025 Bilirubin, UA Negative Negative - 4(70) +++ mg/dL [facility] Blood, UA Negative Negative - 50 Teodoro/mcL [facility] Clarity, UA Clear [facility] Color, UA Yellow [facility] Glucose, UA Negative Negative - 1999(110) ++++ mg/dL [facility] Interpretation and review of laboratory results Normal [facility] Ketones, UA Negative Negative - 160(16) ++++ mg/dL [facility] Leukocytes, UA Positive Negative - 500+++ Robinson/mcL [facility] Comment on above: small Nitrite, UA Negative Negative - Positive [facility] pH, UA 6.5 5 - 9 [facility] Protein, UA Negative Negative - 1999(20) ++++ mg/dL [facility] Spec Grav, UA 1.01 1 - 1.03 [facility] Urobilinogen, UA 0.2 0.2 - 12 mg/dL [facility] BOX TESTon 05-04-2025 BOX [address] SENT OUT [facility] BOX1 [facility] BOX2 05/04/25 [facility] BOX [facility] CBC without diffon Hematocrit (Bld) [Volume fraction] 39.8 % [facility] Hemoglobin (Bld) [Mass/Vol] 13.2 g/dL [facility] Platelets (Bld) [#/Vol] 390 10*3/uL [facility] Rbc Mcv (Fl) By Automated Count 84.7 [facility] Drug Screen, Urineon 025 Amphetamine/Methamphet amine Negative [facility] Barbiturates Negative [facility] Benzodiazepines Negative [facility] Cocaine Metabolite Negative [facility] [facility] Methadone Negative [facility] Opiates Negative [facility] Oxycodone Negative [facility] Phencyclidine Negative [facility] Thc Marijuana, Urine Negative [facility] HBV surface Ag IA Qlon 05-04 Hepatitis B Surface Antigen Negative [facility] HCV Ab IA Qlon 05-04-2025 HCV Ab Ql (S) Non-Reactive [facility] HIV 1+2 Ab+HIV1 p24 Ag IA Ql on 05-04-2025 HIV 1&2 AB/AG Non-Reactive [facility] Hemoglobin A1con 05-04-2025 HbA1c (Bld) [Mass fraction] 5.3 % 4.0 - 6.0 % [facility] No Panel Informationon 05-04 [facility] Rubella IGG immune statusOrd ered By: Angeline Velasquez on 05-04-2025 Rubella immune IgG [facility] Type and screenon 05-04-2025 Abo/Rh(D) Positive [facility] HCG ( test) Ql (U)o n 05-01-2025 Interpretation and review of laboratory results Abnormal [facility] Preg Test, Ur Positive Negative [facility] US OB TRANSVAGINALon [address] [place] [address] Ultrasound Report Signed Patient: DRISS COPE MR#: [id number] : 1995 Acct:[id number] Age/Sex: 30 / F ADM Date: 05/01/25 Loc: US Attending Dr: Nathan Pop D.O. Ordering Physician: Nathan Pop D.O. Date of Service: 05/01/25 Procedure(s): US OB transvaginal Accession Number(s): [id number] cc: Nathan Pop D.O.; Physician,Non-Staff M.Mark Anthony The [place] [id number] Patient Name: DRISS COPE MRN: [facility]:[id number] date: 1995 Sex: F Assigned Patient Location: US Current Patient Location: US Accession/Order Number: [id number] Exam Date: 05/01/2025 08:57 Report Date: 05/01/2025 [...] Faria M.D. 05/01/2025 9:01 AM Dictation Location: [place] [address] Electronically authenticated by: [id number] Y Date: 05/01/2025 09:01 Dictated By: Will Faria M.D. Signed By: 05/01/2504 DD/ 09 TD/TT: Gear Grinder: [facility] Radiology Radiologandra yo MD - 05/01/[address] [address] Ultrasound Report Signed Patient: DRISS COPE MR#: [id number] : 1995 Acct:[id number] Age/Sex: 30 / F ADM Date: 05/01/25 Loc: US Attending Dr: Nathan Pop D.O. Ordering Physician: Nathan Pop D.O. Date of Service: 05/01/25 Procedure(s): US OB transvaginal Accession Number(s): [id number] cc: Nathan Pop D.O.; Physician,Non-Staff [place] [address] Patient Name: DRISS COPE MRN: [facility]:[id number] date: 1995 Sex: F Assigned Patient Location: US Current Patient Location: US Accession/Order Number: [id number] Exam Date: 05/01/2025 08:57 Report Date: 05/01/2025 [...] Faria M.D. 05/01/2025 9:01 AM Dictation Location: [place] [address] Electronically authenticated by: [id number] Y Date: 05/01/2025 09:01 Dictated By: Will Faria M.D. Signed By: 05/01/25903 DD/ 0 TD/TT: Gear Grinder: [facility] Radiology Study observation (narrative) [facility] US OB TRANSVAGINALOrdered By : Radiologist Radiology on 05-01-2025 [facility] Work Phone: Urinalysis macro (dipstick) panel (U)on 05-01-2025 Bilirubin, UA Negative Negative - 4(70) +++ mg/dL [facility] Blood, UA Negative Negative - 50 Teodoro/mcL [facility] Clarity, UA Clear [facility] Color, UA Yellow [facility] Glucose, UA Negative Negative - 1999(110) ++++ mg/dL [facility] Interpretation and review of laboratory results Normal [facility] Ketones, UA Negative Negative - 160(16) ++++ mg/dL [facility] Leukocytes, UA Negative Negative - 500+++ Robinson/mcL [facility] Nitrite, UA Negative Negative - Positive [facility] pH, UA 5.5 5 - 9 [facility] Protein, UA Negative Negative - 1999(20) ++++ mg/dL [facility] Spec Grav, UA 1.02 1 - 1.03 [facility] Urobilinogen, UA 1.0 0.2 - 12 mg/dL [facility] CHEMISTRYOrdered By: SYSTEM SYSTEM on 03-13-2025 [...] Progesterone Lvl 31.35 ng/mL Invalid Interpretation Code [facility] Comment on above: Result Comment: 'F N ON FOLLICULAR = 0.10 - 0.60' 'LUTEAL = 3.00 - 17.5' 'MIDLUTEAL = 3.30 - 18.6' 'POST-MENOPAUSE = 0.10 - 0.40' '-FIRST TRIMESTER = 8.30 - 66.5' 'SECOND TRIMESTER = 18.9 - 66.1' 'THIRD TRIMESTER = 35.8 - 312.4' 'MALES = 0.14 - 2.06' Performed By: #### 2 [id number] #### [facility] [address] [place] [address] Progesteroneon 02-02-2025 Progesterone 0.2 ng/mL Normal . [facility] Comment on above: Result Comment: Foll icular phase 0.1 - 0.9 Luteal phase 1.8 - 23.9 Ovulation phase 0.1 - 12.0 First trimester 11.0 - 44.3 Second trimester 25.4 - 83.3 Third trimester 58.7 - 214.0 Postmenopausal 0.0 - 0.1 Performed at: - [facility] [id number] Head Of Mathematics: Cm Sandoval PhD, Phone: [phone] PERFORMED BY: [facility] [address] [id number] PATHOLOGIST CUSTOMER QUALITY SPECIALIST ARNULFO THOMAS M.D. Performed By: #### P [...] MD Transcribed by: ELOISA Technologist: GIO Arroyo [facility] US Pelvis Non-OB Completeon 01-22-2025 US [...] MD Transcribed by: ELOISA Technologist: GIO Rivera [facility] IGP,APTIMA HPV,AGE GDLNon AGE GDLN ACOG TESTING Note . [facility] Comment on above: TESTS RESULT FLAG UN ITS REF RANGE LAB Clinician Provided Cytology Information Source.............Cervix;Endocervix No. of containers..01 ThinPrep Vial Age Algo ACOG Sarah... FLAG LEGEND: L-Low Normal,H-High Normal,LL-Alert Low,HH-Alert High <-Panic Low,>-Panic High,A-Abnormal,AA-Critical Abnormal Performed at: 01 =G [facility] [address] [facility] [address] Loren Oneal MD, IGP, RFX APTIMA HPV ASCU Note . [facility] Comment on above: TESTS RESULT FLAG UN ITS REF RANGE LAB DIAGNOSIS: 02 NEGATIVE FOR INTRAEPITHELIAL LESION OR MALIGNANCY. Specimen adequacy: 02 Satisfactory for evaluation. Endocervical and/or squamous metaplastic cells (endocervical component) are present. Performed by: Sophia Calzada, Typewriter Repairer ([facility]) . 02 Note: Note 02 The Pap [...] <-Panic Low,>-Panic High,A-Abnormal,AA-Critical Abnormal Performed at: [address] [address] Loren Oneal MD, Performed at: =G - [facility] [id number] Head Of Mathematics: Loren Oneal MD, Phone: [phone] Performed at: [facility] [id number] Head Of Mathematics: Loren Oneal MD, Phone: [phone] BRUSH-SPATULA CERVIX ENDOCERVIX [facility] 04-29-2024 CNPN Telephone ([facility]) DRISS COPE ([id number]) 1995 F Date Time Provider Department 04/29/24 CHARLENE RODRIGUEZ [facility] During your visit today, we recorded [...] Encounter Status:Closed by CHRISTA GARCES on 04/29/24 [facility] 04-25-2024 [facility] Telephone (Q) DRISS COPE ([id number]) 1995 F Date Time Provider Department 04/25/24 CHARLENE RODRIGUEZ [facility] During your visit today, we recorded the following information about you: Anna De [place] 04/25/2024 1:10 PM Signed Pt got in sooner for surgery with her local parking enforcement officer. Please cancel surgery and all pre and [...] Status:Closed by ANNA DE LEON on 04/25/24 [facility] 12-12-2023 CNPN Telephone (WHQ) DRISS COPE ([id number]) 1995 F Date Time Provider Department 12/12/23 CHARLENE RODRIGUEZ WHQ During your visit today, we recorded the [...] Encounter Status:Closed by CHRISTA GARCES on 12/12/23 [facility] CNOVon 12-10-2023 CNOV Office Visit ([facility] ) DRISS COPE ([id number]) 1995 F Date Time Provider Department 12/10/23 10:30 AM CHARLENE RODRIGUEZ During your visit today, we recorded the following information about you: Pulse Blood pressure Weight 98/minute 124/84 68.9 kg Charlene Rodriguez DO 12/10/2023 3:14 PM Signed [facility] SECTION FOR MINIMALLY INVASIVE GYNECOLOGIC SURGERY OUTPATIENT VISIT DATE 12/10/2023 OUTPATIENT VISIT TYPE Follow-up visit PRIMARY CARE PHYSICIAN: Cruz Rodríguez [address] [place] [address] REFERRING PHYSICIAN: Self CHIEF COMPLAINT: No chief [...] MRI: no evidence of 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 Normal [facility] Cytology Cervical or vaginal smear or scraping [facility] 08-15-2023 [facility] 08-02-2023 [facility] Telephone ([facility]) DRISS COPE ([id number]) 1995 F Date Time Provider Department 08/02/23 CHARLENE RODRIGUEZ [facility] During your visit today, we recorded the [...] for orilissa completed via Cover MyMeds. Driss Ranjan (Morales: [id number]) - [id number] Orilissa 150MG tablets Status: Sent To Plan [...] Encounter Status:Closed by LESLEY LYNN on 08/02/23 [facility] 07-16-2023 CNOV Office Visit ([facility] ) DRISS COPE ([id number]) 1995 F Date Time Provider Department 07/16/23 11:30 AM CHARLENE RODRIGUEZ During your visit today, we recorded the following information about you: Blood pressure Last Period 136/90 07/08/23 Charlene Rodriguez DO 07/16/2023 12:41 PM Signed [facility] SECTION FOR MINIMALLY INVASIVE GYNECOLOGIC SURGERY OUTPATIENT VISIT DATE 07/16/2023 OUTPATIENT VISIT TYPE Follow-up visit PRIMARY CARE PHYSICIAN: Cruz Rodríguez [address] [place] [address] REFERRING PHYSICIAN: Cruz Rodríguez CHIEF COMPLAINT: No [...] additional bowel lesions identified Past Gynecologic History: Managing Supervisor History LMP: 07/08/2023 (Exact Date), Having periods Age at Menarche: 14 Age at First : 27 Age at Menopause: Managing Supervisor History Comments: Sexual Activity: Never; No [...] BOLD Cons (more content not included)... Normal [facility] MRI FEMALE PELVIS WO/W IVCON on 06-12-2023 MRI FEMALE PELVIS WO/W IVCON * * *Final Report* * * DATE OF EXAM: Jun 12 2023 2:47PM M 0713 - MRI FEMALE PELVIS WO/W IVCON [...] additional findings. IMPRESSION: No deep infiltrating endometriosis. Gear Grinder: PSCTracey Transcribe Date/Time: Jun 12 2023 2:54P Dictated by : ASHLEY DUKE MD This examination was interpreted and the report reviewed and electronically signed by: SONIDO FLAHERTY MD on Jun 12 2023 4:51PM EST [id number] Normal [facility] ([facility]) DRISS COPE ([id number]) 1995 F Date Time Provider Department 05/11/23 CHARLENE RODRIGUEZ GYNIN During your visit today, we recorded the following information about you: [facility] 05/11/2023 1:21 PM Signed Reason for call: [...] Takes aygestin 5mg daily. She did not pick remover flexeril. Encourage to pick remover the flexeril as this will help with the cramping. Reviewed red flag bleeding symptoms that require trip to ER (soaking greater than one overnight pad per hour, chest pain, shortness of breath, fatigue, palpitations).. Advised keep appt. Gives verbal understanding. Appointments for Next 60 Days Date Time Provider Location Dept Phone 05/17/2023 1:00 PM CHARLENE RODRIGUEZ [facility] Stro [phone] Christa Suárez RN Allergies As of Date: 05/11/2023 (No Known Allergies) Date Reviewed: 05/09/2023 Reviewed by: Srinivasa Downs APRN.MARKETING PROGRAM MANAGER - Fully Assessed Reason for Visit: Vaginal [...] Encounter Status:Closed by CHRISTA WILLINGHAM on 05/11/23 [facility] CNOVon 05-01-2023 CNOV Office Visit ([facility] ) DRISS COPE ([id number]) 1995 F Date Time Provider Department 05/01/23 10:30 AM SRINIVASA DOWNS JA During your visit today, we recorded the following information about you: Blood pressure Weight Height Last Period 148/64 64.9 kg 1.575 m 04/22/23 Srinivasa Downs APRN.[facility] 05/09/2023 11:46 AM Signed Driss Cope is a 28 year old female who presents for problem visit for pain HPI: Pain is week before period and week of period. Worse on her period for every day she's bleeding Urinary - No symptoms GI - Always constipated. No meds [place] - painful always Pain is on left [...] L0 SAB0 IAB0 Ectopic0 Multiple0 Live Births0 Managing Supervisor History LMP: 03/26/2023 (Approximate), Having periods Age at Menarche: Age at First : Age at Menopause: Managing Supervisor History Comments: Sexual Activity: Never; No [...] physical therapy - or can go locally pelvicP4RCab.Symwave Trial flexeril at bedtime Can consider Baclofen [...] physical therapy - or can go locally pelvicP4RCab.Symwave Trial flexeril at bedtime Can consider Baclofen suppositories - let me know if you want to trial after you go to PT Contin (more content not included)... Normal [facility] CHEMISTRYOrdered By: SYSTEM SYSTEM on 01-31-2023 Albumin [Mass/Vol] 4.3 g/dL Normal 3.3 - 5.0 gm/dL [facility] [place] [place] Remisol Albumin/Globulin [Mass ratio] 1.2 {ratio} Normal 1.1 - 2.2 FT Remisol ALP [Catalytic activity/Vol] 106 [iU]/d High 21 - 98 Int._Unit/L FT Remisol ALT No additional P-5'-P [Catalytic activity/Vol] [...] rate/Area] mL/min/1.73 m2 Normal >=59mL/min/ 1.73 m2 [facility] [place] [place] Chem S GFR/1.73 sq M.predicted among non-blacks MDRD (S/P/Bld) [Vol rate/Area] mL/min/1.73 m2 Normal >=59mL/min/ 1.73 m2 [facility] [place] Chem S Globulin (S) [Mass/Vol] 3.6 g/dL [...] Ql (Bld) Present (01/31/23 2:10 PM) Normal [facility] [place] [place] HemeManSS Erythrocyte distribution width (RBC) [Ratio] 15.8 % High 10.9 - 14.2 % FT HemeAutoSS Hematocrit (Bld) [Volume fraction] 31.7 % Low 34.0 - 46.0 % FT HemeAutoSS Hemoglobin (Bld) [Mass/Vol] 9.8 g/dL Low 12.0 - 16.0 gm/dL FT HemeAutoSS Hypochromia Auto Ql (Bld) Present (01/31/23 2:10 PM) Normal [facility] [place] HemeWorleySS MCH (RBC) [Entitic mass] 22.8 pg Low 27.0 - 34.0 pg FT HemeAutoSS MCHC (RBC) [Mass/Vol] 30.9 g/dL Low 31.4 - 36.0 gm/dL FT HemeAutoSS MCV (RBC) [Entitic vol] 73.9 fL Low 80.0 - 100.0 fL FT HemeAutoSS Morphology Blair (Bld) [Interp] See Morphology (01/31/23 2:10 PM) Normal [facility] [place] HemeManSS Platelet mean volume (Bld) [Entitic vol] [...] PM) Normal Negative [facility] UA Auto SS [place].plasma/[place] .RBC (Bld) [Mass ratio] 0-3 /HPF Normal [...] [facility] UA Auto SS Urobilinogen Qn (U) 0.1465094 {Aspen'U}/dL Normal 0.0 - 1.0 EU/dL [facility] UA Auto SS WBC Auto Ql (U) Negative (01/31/23 1:57 PM) Normal Negative [facility] UA Auto SS WBC LM.HPF (Urine sed) [#/Area] 0-5 /HPF Normal 0-5/HPF [facility] UA Auto SS BLOOD BANKOrdered By: Teena Quiroz on 12-30-2022 ABO/Rh Interp Positive Invalid Interpretation Code [facility] [place] [place] BB Subsection ABSC Gel Interp Negative (12/30/22 [...] rate/Area] mL/min/1.73 m2 Normal >=59mL/min/ 1.73 m2 [facility] [place] [place] Chem S GFR/1.73 sq M.predicted among non-blacks MDRD (S/P/Bld) [Vol rate/Area] mL/min/1.73 m2 Normal >=59mL/min/ 1.73 m2 [facility] [place] [place] Chem S Glucose [Mass/Vol] 105 mg/dL Normal 55 - 199 mg/dL FT Remisol Potassium [Moles/Vol] 3.8 mmol/L Normal 3.5 - 5.3 mmol/L FT Remisol Sodium [Moles/Vol] 137 mmol/L Normal 135 - 145 mmol/L FT Remisol Urea nitrogen [Mass/Vol] 17 mg/dL Normal 5 - 21 mg/dL FT [facility]isol Urea nitrogen/Creatinine [Mass ratio] 19 mg/mg Normal 10 - 20 FT Remisol COAGULATIONOrdered By: Courtney Case on 12-30-2022 [...] 2.6 E9/L Normal 2.0 - 7.5 E9/L FT HemeAutoSS HEMATOLOGYOrdered By: Courtney elizabeth on 12-30-2022 Erythrocyte distribution width (RBC) [Ratio] 14.1 % Normal 10.9 - 14.2 % FT HemeAutoSS Hematocrit (Bld) [Volume fraction] 31.5 % [...] AM) Normal Negative [facility] UA Auto SS [place].plasma/[place] .RBC (Bld) [Mass ratio] 4-20 /HPF Normal [...] [facility] UA Auto SS Urobilinogen Qn (U) 0.2681483 {Aspen'U}/dL Normal 0.0 - 1.0 EU/dL [facility] UA Auto SS WBC Auto Ql (U) Negative (12/30/22 8:53 AM) Normal Negative [facility] UA Auto SS WBC LM.HPF (Urine sed) [#/Area] 0-5 /HPF Normal 0-5/HPF [facility] UA Auto SS Office Visiton 12-05-2022 Follow-up visit [id number] Aislinn Cope 1995 F Date Provider Department Center 12/05/2022 [id number], [facility] W[facility] None Chart Close Cosign Required by: Opal Ross MD[VARUND] No family history on file Level of Service:60388 NE OFFICE/OUTPATIENT ESTABLISHED LOW MDM 20-29 MIN (GE,GC) Reason for Visit and Comments: Blood Pressure Check [299] Normal [facility] Progress Noteon 12-05-2022 Progress Note --- Attestation signed by Opal Ross MD at 12/05/2022 3:19 PM [facility]: This patient was seen in [facility] by the resident. I reviewed [...] weeks (around 01/02/2023) for Visit . Normal [facility] Progress Note Vital signs BP 127/87 Weight 149.2lb Pulse 106 Temp 96.7 Normal [facility] Progress Noteon 12-02-2022 Progress Note Late entry [...] to discharge. Will make patient aware. Normal [facility] Progress Note VAGINAL DELIVERY POST DAY # 2 Driss Stephensifeoma, 27 y.o. This patient was [...] DO Vanessa Zambrano DO 12/02/2022, 5:09 AM [facility] 42on 12-01-2022 42 22.5mm flanges given to patient. Encouraged her to call for observation of pump session and smaller flanges. Martha in NICU to assist with personal pump. Normal [facility] CARECOORDon 12-01-2022 CARECOORD 27 year old admitted [...] Denies any concerns at this time. Normal [facility] Progress Noteon 12-01-2022 Progress Note NOTE - [...] with more than 50% of the total utcf-aj-cgcf time of the visit in counseling/coordination of care. , 9:22 AM [facility] 42on 11-30-2022 42 Swabs given to patikiesha nt and educated how to use and to bring to CRISTIAN Normal [facility] 42 Breast pump use indicated for this pt. Due to: in [facility] Hospital breast pump, supplies kit, [...] and support patient. Script sent to aminata armida and info given to patient Educated patient that she will most likely need 21 or 19 mm flanges for home pump and how to measure flange size for home pump Told patient to check with in [facility] for smaller flange sizes [facility] Labor and Delivery Noteon Labor and Delivery [...] PreEwSF Post-operative Diagnosis: Live Born female Delivering Senior Information Systems Architect & Airplane Pilot Chief(s): Dr. Bowden; Dr. Kramer Information: Information for the patient's : Francie Cope [[id number]] Information for the patient's : Francie Cope [[id number]] Description: normal Meconium Noted: No Anesthesia: epidural [...] for: RUBELLATAMMI Kramer DO 11/30/2022, 4:04 AM [facility] Progress Noteon 11-30-2022 Progress Note Chauhan catheter inser tank by Andi Bacon RN, catheter drained and emptied for 900cc. Catheter secured to leg. Normal [facility] Progress Note Patient up to bathro om but remains unable to void. Bladder scan completed and reads >570. Sent secure message to Dr. Ruiz letting her know the above. Instructed to place chauhan catheter. Normal [facility] Progress Note Secure message sent to Dr. Gamez stating patient is having difficulty voiding, patient's perineum is very swollen, and that patient was straight cathed for 950ml at noon. Received order for benadryl to help with swelling. Normal [facility] Progress Note Nutrition rescreen completed. Chart reviewed. Patient to be monitored and followed by the diet information technology technician. CRSIS Oshea Normal [facility] Progress Note Patient unable to vo id, last straight cathed at 0400. Bladder scan obtained for >928 ml, fundus +2 and shifted to right. Patient straight cathed on attempt x2 by Andi Bacon RN for 950cc. Will continue to monitor. Normal [facility] CAREPLNon 11-29-2022 CAREPLN The patient will continue to make cervical change. Clotilde Mg RN Normal [facility] Laboratory - Hematology and Cell countsOrdered By: Lucrecia Cervantes on 11-29-2022 Platelets (Bld) [#/Vol] 386 10*3/uL 140 - 440 10*3/uL [facility] Platelets (Bld) [#/Vol]Order ed By: Lucrecia Cervantes on 11-29-2022 Interpretation and review of laboratory results Normal [facility] S. agalactiae DNA TENA+probe Ql (Unsp spec)on 11-29-2022 Group B Strep Screen Not detected Not Detected [facility] Interpretation and review of laboratory results Normal [facility] Methodology: real-ti me PCR [facility] ABO and Rh group Confirm Nom (Bld)on 11-28-2022 ABO group Nom (Bld) O [facility] D Ag Ql (RBC) Positive [facility] Blood type and Crossmatch pa chitra (Bld)on 11-28-2022 ABO group Nom (Bld) O [facility] Blood group antibody screen GEL Ql Negative [facility] D Ag Ql (RBC) Positive [facility] CBC panel Auto (Bld)Ordered By: Lauren Ayers on 11-28-2022 Erythrocyte distribution width (RBC) [Ratio] 13.3 % 11.5 - 14.5 % [facility] Hematocrit (Bld) [Volume fraction] 33.8 % Low 35.0 - 47.0 % [facility] Hemoglobin (Bld) [Mass/Vol] 11.2 g/dL Low 11.7 - 16.0 g/dL [facility] Interpretation and review of laboratory results Abnormal [facility] MCH (RBC) [Entitic mass] 28.0 pg 26.0 - 34.0 pg [facility] MCHC (RBC) [Mass/Vol] 33.1 % 32.0 - 36.0 % [facility] MCV (RBC) [Entitic vol] 84.4 fL 80.0 - 98.0 fL [facility] Platelet mean volume (Bld) [Entitic vol] 8.3 fL 7.4 - 12.4 fL [facility] Platelets (Bld) [#/Vol] 319 10*3/uL 140 - 440 10*3/uL [facility] RBC (Bld) [#/Vol] 4.00 10*6/uL 3.8 - 5.20 10*6/uL [facility] WBC (Bld) [#/Vol] 18.9 10*3/uL High 3.6 - 10.7 10*3/uL [facility] Comprehensive metabolic 1998 panelon 11-28-2022 Albumin [Mass/Vol] 3.9 g/dL 3.5 - 5.0 g/dL [facility] ALP [Catalytic activity/Vol] 201 U/L High 38 - 126 U/L [facility] ALT [Catalytic activity/Vol] 15 U/L 0 - 34 U/L [facility] Anion gap [Moles/Vol] 7 mmol/L 3 - 13 mmol/L [facility] AST [Catalytic activity/Vol] 28 U/L 15 - 46 U/L [facility] Bilirubin [Mass/Vol] 0.9 mg/dL 0.2 - 1 .3 mg/dL [facility] Calcium [Mass/Vol] 8.2 mg/dL Low 8.4 - 10. 4 mg/dL [facility] Chloride [Moles/Vol] 109 mmol/L High 98 - 10 7 mmol/L [facility] CO2 [Moles/Vol] 17 mmol/L Low 22 - 30 mmol/L [facility] Creatinine [Mass/Vol] 0.53 mg/dL 0.52 - 1.04 mg/dL [facility] GFR/1.73 sq M.predicted MDRD (S/P/Bld) [Vol rate/Area] - PINF [facility] Comment on above: Calculation based on the Chronic Kidney Disease Epidemiology Collaboration (CKD-EPI) equation refit without adjustment for race Glucose [Mass/Vol] 158 mg/dL High 70 - 100 mg/dL [facility] Interpretation and review of laboratory results Abnormal [facility] Potassium [Moles/Vol] 4.1 mmol/L 3.5 - 5.1 mmol/L [facility] Protein [Mass/Vol] 7.5 g/dL 6.3 - 8.2 g/dL [facility] Sodium [Moles/Vol] 133 mmol/L Low 135 - 145 mmol/L [facility] Urea nitrogen [Mass/Vol] 5 mg/dL Low 7 - 17 mg/dL [facility] Laboratory - Hematology and Cell countsOrdered By: Shruthi Fontana on 11-28-2022 Platelets (Bld) [#/Vol] 335 10*3/uL 140 - 440 10*3/uL [facility] Platelets (Bld) [#/Vol]Order ed By: Shruthi Fontana on 11-28-2022 Interpretation and review of laboratory results Normal [facility] CHEMISTRYOrdered By: Adrenaline Mobility SYSTEM on 11-27-2022 Free T4 index Calc [...] rate/Area] mL/min/1.73 m2 Normal >=59mL/min/ 1.73 m2 [facility] [place] Chem S GFR/1.73 sq M.predicted among non-blacks MDRD (S/P/Bld) [Vol rate/Area] mL/min/1.73 m2 Normal >=59mL/min/ 1.73 m2 [facility] [place] Chem S Globulin (S) [Mass/Vol] 4.0 g/dL [...] PM) Normal Negative [facility] UA Auto SS [place].plasma/[place] .RBC (Bld) [Mass ratio] 4-20 /HPF Normal [...] [facility] UA Auto SS Urobilinogen Qn (U) 0.3564766 {Aspen'U}/dL Normal 0.0 - 1.0 EU/dL [facility] [...] Normal >=59mL/min/ 1.73 m2 [facility] Chem S Globulin (S) [Mass/Vol] [...] AM) Normal Negative [facility] UA Auto SS [place].plasma/[place] .RBC (Bld) [Mass ratio] 0-3 /HPF Normal [...] [facility] UA Auto SS Urobilinogen Qn (U) 0.9488992 {Aspen'U}/dL Normal 0.0 - 1.0 EU/dL [facility] [...] 3.3 E9/L Normal 2.0 - 7.5 E9/L [facility] HEMATOLOGYOrdered By: Sean Ward on 04-25-2022 Erythrocyte distribution width (RBC) [Ratio] 12.9 % Normal 10.9 - 14.2 % [facility] Hematocrit (Bld) [Volume fraction] 40.1 % Normal 34.0 - 46.0 % [facility] Hemoglobin (Bld) [Mass/Vol] 13.2 g/dL Normal 12.0 - 16.0 gm/dL [facility] MCH (RBC) [Entitic mass] 27.7 pg Normal 27.0 - 34.0 pg [facility] HemeAutoSS MCHC (RBC) [Mass/Vol] 32.8 g/dL Normal 31.4 - 36.0 gm/dL [facility] MCV (RBC) [Entitic vol] 84.3 fL Normal 80.0 - 100.0 fL [facility] HemeAutoSS Platelet mean volume (Bld) [Entitic vol] 8.5 fL Normal 6.4 - 10.8 fL [facility] HemeAutoSS Platelets (Bld) [#/Vol] 299.0 E9/L Normal 150.0 - 500.0 E9/L [facility] HemeAutoSS RBC (Bld) [#/Vol] 4.8 E12/L Normal 4.3 - 5.9 E12/L [facility] WBC corrected for nucl RBC Auto (Bld) [#/Vol] 5.9 E9/L Normal 4.0 - 11.0 E9/L [facility] LMPon 02-09-2022 Fall risk assessment a) No falls within the last year QZ-ECBJF-Bvx man 320 Work Phone: Last menstrual period start date unsure ZD-SPCFF-Ljn man 320 Work Phone: Tobacco use status CPHS b) No QZ-ZALDW-Bbv man 320 Work Phone: 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 endometriosis: discussed options continue norethindrone rx'd orilissa 200 mg bid rtc in 3 months Chief Complaint patient here to discuss pain related to endometriosis, declined publicity expert. 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 History of Present [age]uhuc34 yo presents as a follow up for [...] again engaged x 1 year working at [employer] in [place] Review of Systems Constitutional: no fever, no [...] hours Vitals Vital Signs Recorded: 09Feb2022 11:41AM Zrnuxtyv006 Swjsshznk27 Height5 ft 2 in Uutecw236 lb BMI Wmwiuzqgsw29.51 kg/m2 BSA Calculated1.61 Tobacco Useb) No Fall [...] Tashi Lopez MD 09/29/21 Final result Normal [facility] GRINDER OPERATOR SURFACE TOOL - Office Visiton 07-0 GRINDER OPERATOR SURFACE TOOL - Office Visit Diagnoses/Problems Assessed Anxiety (300.00) (F41.9) Orders Start: FLUoxetine HCl - 20 MG Oral Capsule; TAKE 1 CAPSULE Daily Provider Impressions 26 yo 1. endometriosis - discussed treatment options rx'd Prozac for mood rx'd norethindrone rtc in 3 months Chief Complaint patient to follow up on medication from last visit in march 2021, declined publicity expert. 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 History of Present Kooifer48 yo with endometriosis was on norethindrone d/c'd [...] Every 6 hours Vitals Vital Signs Recorded: [id number] 01:19PM Mrwnzptj018 Ynaycevhq54 Height5 ft 2 in Ckpozb777 lb BMI Ckivxbpxhz51.58 kg/m2 BSA Calculated1.53 Tobacco Useb) No Fall Screeninga) No falls within the last year [id number] Pain Scale0 Signatures Electronically signed by : Charlene Rodriguez DO; Jun 03 2021 10:55AM EST (Author) Normal [facility] Chlamydia sp identified Org specific cx Nom (Genital specimen)Ordered By: Jackelyn Dela Cruz on 05-16-2021 External Chlamydia Screen Negative Negative [facility] HBV surface Ag IA Qlon 05-16 External Hepatitis B Surface Ag Negative Negative, None Detected [facility] HIV 1+2 Ab and HIV1 p24 Ag I A.rapid Nom (S/P/Bld)on 05-16-2021 HIV-1/HIV-2 Ab Negative [facility] No Panel Informationon 05-16 External Gonorrhea Screen Negative Negative [facility] External Rubella IGG Quantitation Positive [facility] No Panel InformationOrdered By: Jackelyn Dela Cruz on 05-16-2021 [facility] Reagin Ab RPR Ql (S)on 05-16 External RPR Non-Reactive Borderline, Nonreactive , Weakly Reactive, Equivocal [facility] GRINDER OPERATOR SURFACE TOOL - Office Visiton 05-2 GRINDER OPERATOR SURFACE TOOL - Office Visit Diagnoses/Problems Assessed Endometriosis (617.9) [...] for endometriosis PAP per patient 2019 WNL Hydraulic Riveter declined -CATY,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 LMP 04/11/21 History of Present Aawjojq31 yo with endometriosis bleeding once per month, [...] Apr 20 2021 11:04AM EST (Author) Normal [facility] Tobacco Screening.on Fall risk assessment a) No falls within the last year ZV-OJHVG-Nsh man 320 Work Phone: Last menstrual period start date 11Apr2021 SD-GWPSW-Evp man 320 Work Phone: Tobacco Screening. b) No MG-OBG YN-Ris man 320 Work Phone: Radiologyon 04-14-2021 US Kidney - bilateral Normal [facility] [place] Work Phone: US RENAL BILATon 04-14-2021 US RENAL BILAT Patient Name: DRISS COPE STUDY: US RENAL BILAT; 04/14/2021 1:14 pm INDICATION: Recurrent UTI. COMPARISON: None. ACCESSION NUMBER(S): [id number] ORDERING CLINICIAN: NICHOLAS CHAU TECHNIQUE: Multiple images [...] Electronically signed by: GENEVIEVE BREEN MD Normal [facility] Office Visit (Urology)on Follow-up visit Diagnoses/Problems Assessed Recurrent UTI (599.0) (N39.0) Orders Recurrent UTI Start: Nitrofurantoin Monohyd Macro 100 MG Oral Capsule; TAKE 1 CAPSULE Other Please take one capsule after sexual intercourse to prevent UTI Rx By: Nicholas Chau; Dispense: 30 Days ; #:30 Capsule; Refill: 11;For: Recurrent UTI; ROSY = N; Verified Transmission to [facility] Ultrasound Kidney Bilateral; Status:Hold For - Scheduling; Requested for:23Izf2257; Perform:[facility]; Due:48Spb6478; Last Updated By:Isela Terrazas; 04/01/2021 9:16:17 AM;Ordered; [...] UTI; ROSY = N; Verified Transmission to [facility] Provider Impressions 26 year old female with history of endometriosis presents today via telehealth as a new patient for evaluation of recurrent UTIs. She reports getting UTIs at least once per month, noting occasional nocturia. Symptoms include burning, frequency, and back pain. She states that some UTIs are related to sexual intercourse but most are not. Patient reports she saw Dr. Booth at [facility] in [place], noting she was only treated with medications and urethral dilation for a supposed stricture. Denies gross hematuria. Patient is a non-smoker. Urine culture from [facility] on 03/04/21 was positive for E. coli, [...] NPV - recurrent UTI History of Present [age]gfghh8 year old female with history of endometriosis presents today via telehealth as a new patient for evaluation of recurrent UTIs. She reports getting UTIs at least once per month, noting occasional nocturia. Symptoms include burning, frequency, and back pain. She states that some UTIs are related to sexual intercourse but most are not. Patient reports she saw Dr. Booth at [facility] in [place], noting she was only treated with medications [...] affect. Signature (more content not included)... [facility] GASTRIC EMP[facility] SOLIDon 11-05-2020 [place] GASTRIC EMPTYING SOLID * * *Final Report* * * DATE OF EXAM: Nov 05 2020 12:26PM [facility] 0017 - [place] GASTRIC EMPTYING SOLID / PROCEDURE REASON: Nausea [...] 4 HOURS IS CONSISTENT WITH MILD GASTROPARESIS. Gear Grinder: DAVID Transcribe Date/Time: Nov 05 2020 1:09P Dictated by : BRUNO PEREA MD This examination was interpreted and the report reviewed and electronically signed by: BRUNO PEREA MD on Nov 05 2020 1:24PM EST [id number] [facility] POSTPROC EVALon 020 ANES POSTPROC EVAL HNO ID: [id number] Author: Austin Story Service: ? Author Type: [...] October 25, 2020 TIME: 2:52 PM CSN: [id number] [facility] ANES PRE-OPon 10-25-2020 ANES PRE-OP HNO ID: [id number] Author: Austin Story Service: ? Author Type: [...] October 25, 2020 TIME: 1:08 PM CSN: [id number] Normal [facility] SURGICAL PATHOLOGYon 020 SURGICAL PATHOLOGY Specimen originated from [facility] Specimen #: [id number] Submitting Physician: DAVID CRZU MD FINAL DIAGNOSIS 1. Small bowel, biopsy (A) - Small bowel mucosa with no pathologic diagnostic abnormality; negative for celiac disease, granulomas and dysplasia. 2. Stomach, biopsy (B) - Gastric oxyntic-type mucosa with no pathologic diagnostic abnormality; see comment. /[facility] 10/26/2020 COMMENT 2. No microorganisms morphologically compatible [...] in one cassette. Gross examination performed at [facility], [address] [place] [address] 10/25/2020 7:59:40 PM Date of Report: 10/26/2020 Date of Procedure: 10/25/2020 Date of Receipt: 10/25/2020 Submitted by: DAVID CRUZ MD Location: [facility] Diagnostic interpretation performed at [facility], [address] [place] [address]. CLIA Number: [id number] Normal [facility] Comment on above: Performed By: #### S #### See report for performing lab information. SURGICAL PATHOLOGY Specimen originated from [facility] Specimen #: [id number] Submitting Physician: DAVID CRUZ MD FINAL DIAGNOSIS 1. Small bowel, biopsy (A) - Small bowel mucosa with no pathologic diagnostic abnormality; negative for celiac disease, granulomas and dysplasia. 2. Stomach, biopsy (B) - Gastric oxyntic-type mucosa with no pathologic diagnostic abnormality; see comment. /[facility] 10/26/2020 COMMENT 2. No microorganisms morphologically compatible [...] in one cassette. Gross examination performed at [facility], [address] [place], [place] [id number] EJL 10/25/2020 7:59:40 PM Date of Report: 10/26/2020 Date of Procedure: 10/25/2020 Date of Receipt: 10/25/2020 Submitted by: DAVID CRUZ MD Location: [facility] Diagnostic interpretation performed at [facility], [place] [id number]. CLIA Number: [id number] Normal [facility] ABO/RH GROUP TESTon 09-01-20 ABO TYPE O Normal [facility] Comment on above: Performed By: #### V ERAB #### [facility] [address] [place] [place] [id number] RH TYPE Positive Normal [facility] Comment on above: Performed By: #### V ERAB #### [facility] [address] [place] [id number] [facility] Surgical Pathology Dep artmenton 09-01-2020 [facility] Surgical Pathology Department Name DRISS COPE Pathologist: ASHLEY HURTADO MD Date of Procedure: 09/01/2020 Date Received: 09/01/2020 Date Reported 09/03/2020 Submitting Physician: CHARLENE RODRIGUEZ D.O. Location: [facility] External # FINAL DIAGNOSIS A. LEFT [...] D. Right pelvic sidewall peritoneum are 2 culr-lle-ebk, irregular fragments of tissue measuring 1.3 x [...] in toto in one cassette. SB amisha/09/02/2020 [facility] Department of Pathology [address] [place] [address] Normal [facility] Comment on above: Performed By: #### A #### [facility] Surgical Pathology Department [address] [place] [address] History and Physical - Surge ry > [...] T&S: O+, COVID-19: negative OB Hx: None. Managing Supervisor Hx: As above. PMHx: endometriosis Surg [...] the note. I personally evaluated the patient [id number] Attending Provider Inpatient Certification StatementObservation patient/other outpatient [...] 01-Sep-2020 10:04 by Charlene Rodriguez () Normal [facility] Homegoing Instructionson Homegoing Instructions Additional Instructions: Handouts Given: Topic 1Anesthesia Homegoing Instructions Topic 2Surgical Site Infection Handout Topic 3New Medication Education Topic 4Suggamedex handout Electronic Signatures: Aminata Gomez) (Signed 01-Sep-2020 16:07) Authored: Additional Instructions Last Updated: 01-Sep-2020 16:07 by Aminata Gomez (DIALLO) Normal [facility] Patient Profile - Preop v2on 09-01-2020 Patient Profile - Preop v2 Profile: Initial Info: How to be Addressedalexis Spoken Language PreferredEnglish Are you currently using the Personal Electronic Health Record or [facility] Stated Reason for Admissionseeing if my endometriosis is back Primary Contact Name and Numberlogan [phone] Patient Belongingsclothing locker glasses with bf Medications Brought to [facility] Health: Weight in kg55.6 kilogram(s) Weight in luo470.5 pound(s) Weight Methodactual (measured) Scale Typestanding Height [...] Arrangementshouse Lives Withparent(s) Resource/Environmental Concernsnone [facility] Anticipated at Transitionnone Substance: Current or [...] Learning Preferencesverbal instruction Cultural Considerationsnone Developmental Considerationsnone Mosque Considerationsnone Other learner availableno Falls RiskPatient location auto qualifies him/her for HIGH RISK. Are there any cultural, spiritual, christianity practices/values/needs that are important for us to [...] Surgery > 30 days 01-Sep-2020 03:42 Normal [facility] Preop Checkliston 09-01-2020 Preop Checklist Preop Checklist: Preop Checklist: Arrival [id number] Arrival Time12:30 Procedure Typelaparoscopic endometriosis excision NPO [id number] 00:00 ID Band Onyes Allergy Bandno known [...] 01-Sep-2020 12:35 by Sierra Kraft (RN) Normal [facility] ANTIBODY IDENT.on 08-31-2020 ANTIBODY IDENT. SEE BELOW Normal [facility] Comment on above: Result Comment: NO C LINICALLY SIGNIFICANT ANTIBODIES IDENTIFIED. Performed By: #### A BID #### [facility] [address] [place] [address] CBCon 08-30-2020 Erythrocyte distribution width (RBC) [Ratio] 12.1 % Normal 11.5 - 14.5 [facility] Comment on above: Performed By: #### C BC #### [facility] [address] [place], [place] [id number] Hematocrit (Bld) [Volume fraction] 39.6 % Normal 36.0 - 46.0 [facility] Comment on above: Performed By: #### C BC #### [address] [id number] Hemoglobin (Bld) [Mass/Vol] 12.6 g/dL Normal 12.0 - 16.0 [facility] Comment on above: Performed By: #### C BC #### [address] [id number] MCHC (RBC) [Mass/Vol] 31.8 g/dL Low 32.0 - 36.0 [facility] Comment on above: Performed By: #### C BC #### [address] [id number] MCV (RBC) [Entitic vol] 90 fL Normal 80 - 100 [facility] Comment on above: Performed By: #### C BC #### [address] [id number] Platelets (Bld) [#/Vol] 333 10*3/uL Normal 150 - 450 [facility] Comment on above: Performed By: #### C BC #### [address] [id number] RBC 4.42 x10E12/L Normal 4.00 - 5.20 [facility] Comment on above: Performed By: #### C BC #### [address] [id number] WBC (Bld) [#/Vol] 5.6 10*3/uL Normal 4.4 - 11.3 [facility] [place] Comment on above: Performed By: #### C BC #### [address] [id number] CORONAVIRUS 2019, SCREEN ASY MPTOMATICon 08-30-2020 SARS-CoV-2 (COVID-19) RNA TENA+probe Ql (Unsp spec) Not detected Normal Not Detected [facility] Comment on above: Result Comment: This assay [...] patient management decisions. Fact sheet for providers: https://www.fda.gov/media/947204/download Fact sheet for patients: https://www.fda.gov/media/561779/download This test has received FDA Emergency Use Authorization (EUA) and has been verified by [facility] ([facility]). This test is only authorized for the duration of time that circumstances exist to justify the authorization of the emergency use of in vitro diagnostic tests for the detection of SARS-CoV-2 virus and/or diagnosis of COVID-19 infection under section 564(b)(1) of the Act, 21 U.S.C. 360bbb-3(b)(1), unless the authorization is terminated or revoked sooner. [facility] is certified under CLIA-88 as qualified to perform high complexity testing. Testing is performed in the [facility] laboratories located at [address] [place] [address]. Performed By: #### C OVSC #### [place] [address] Lab Specimen Source Nasal, Nasopharyngeal Normal [facility] Comment on above: Performed By: #### C OVSC #### [place] [address] TYPE + SCREENon 08-30-2020 ABO TYPE O Normal [facility] Comment on above: Performed By: #### T +S #### [facility] [address] [place] [address] RH TYPE Positive Normal [facility] Comment on above: Performed By: #### T +S #### [facility] [address] [place] [id number] ABO TYPE Canceled Normal [facility] Comment on above: Order Comment: TEST TYPE + SCREEN WAS CANCELLED, 08/30/2020 13:37 JOP. Performed By: #### T +S #### [place] [id number] [place] [address] RH TYPE Canceled Normal [facility] Comment on above: Order Comment: TEST TYPE + SCREEN WAS CANCELLED, 08/30/2020 13:37 JOP. Performed By: #### T +S #### [facility] [address] [place] [address] HOSPon 07-29-2020 HOSP Patient:Flavio Cope MRN: Height:5' [...] for the following basenames: K,HCT Progress Notes ([facility] RE[facility] AV4): Jaquelin Wesley Ma 10/19/2020 2:35 [...] 1 10 oz. Bottle of Magnesium Citrate (Lemon/Tribal) ? A test for COVID 19 test [...] toast without seeds (not multigrain); pretzels; waffles, Divehi toast and pancakes; white rice, noodles, pasta, macaroni, peeled cooked potatoes; Special K, Rice Krispies or Falkland Flakes cereals; ripe bananas; melons (except watermelon [...] carbonated beverages such as chi aislinn or lemon-northwestern shoshone soda; Gatorade? or other sports drinks (not [...] make sure you have a responsible adult warehouse delivery driver to take you home after procedure. Due to having sedation, you may not drive the rest of the day. ? If you need to reschedule, please call [phone] ?Date/Provider Dr Cruz Procedure:colonoscpy Facility:[facility] Prep ordered( if aware):miralax Knowledge of prep instructions:posted to [employer] Diabetic:no Blood Thinners:no Pacemaker with defibrillator:no left message for patient to return call. Nurse triage please give below message. PLEASE READ PATIENT INSTRUCTIONS BELOW. THANK YOU. [facility] PROGRESSon 07-29-2020 PROGRESS HNO ID: [id number] Author: Leon EliRtFito Pittman Service: Radiology Author Type: Poultry Offal Icer Type: Progress Notes Filed: 07/29/2020 11:06 AM [...] RT Daya July 29, 2020 11:01 AM [facility] XR ABD 2V SUPINE W UPR/DECUB [...] structures are normal. No other significant abnormality. Gear Grinder: DAVID Transcribe Date/Time: Jul 29 2020 11:19A Dictated by : LALI ORNELAS MD This examination was interpreted and the report reviewed and electronically signed by: LALI ORNELAS MD on Jul 29 2020 11:19AM EST [id number] [facility] Vital Signs Date Time Vital Sign Value Performing Clinician Facility 09-04-2025 14:48-0400 Body height 157.5 cm Mine Denise MD Work Phone: [facility] 09-04-2025 14:48-0400 Body mass index (BMI) [Ratio] 29.04 kg/m2 Mine Denise MD Work Phone: [facility] 09-04-2025 14:48-0400 Body weight 72.03 kg Mine Denise MD Work Phone: [facility] 09-04-2025 14:48-0400 Diastolic blood pressure 93 mm[Hg] Mine Denise MD Work Phone: [facility] 09-04-2025 14:48-0400 Heart rate 104 /min Mine Denise MD Work Phone: [facility] 09-04-2025 14:48-0400 Systolic blood pressure 149 mm[Hg] Mine Denise MD Work Phone: [facility] 09-03-2025 15:54-0400 Body mass index (BMI) [Ratio] 29.41 kg/m2 Marbella Keane NP Work Phone: [facility] 09-03-2025 15:54-0400 Body weight 72.94 kg Marbella Keane WILLOWER Work Phone: [facility] 09-03-2025 15:54-0400 Diastolic blood pressure 90 mm[Hg] Marbella Keane WILLOWER Work Phone: [facility] 09-03-2025 15:54-0400 Systolic blood pressure 170 mm[Hg] Marbella Keane WILLOWER Work Phone: [facility] 08-27-2025 15:37-0400 Body mass index (BMI) [Ratio] 29.23 kg/m2 Marbella Keane NP Work Phone: [facility] 08-27-2025 15:37-0400 Body weight 72.48 kg Marbella Keane WILLOWER Work Phone: [facility] 08-27-2025 15:37-0400 Diastolic blood pressure 92 mm[Hg] Marbella Suely WILLOWER Work Phone: [facility] 08-27-2025 15:37-0400 Systolic blood pressure 158 mm[Hg] Marbella Keane WILLOWER Work Phone: [facility] 08-24-2025 15:55-0400 Body mass index (BMI) [Ratio] 29.45 kg/m2 Teena Sarmiento RN Work Phone: [facility] 08-24-2025 15:55-0400 Body weight 73.03 kg Teena Sarmiento RN Work Phone: [facility] 08-12-2025 14:32-0400 Body mass index (BMI) [Ratio] 27.82 kg/m2 Nathan Kiesha DO Work Phone: [facility] 08-12-2025 14:32-0400 Body weight 69 kg Nathan Kiesha DO Work Phone: [facility] 08-12-2025 14:32-0400 Diastolic blood pressure 82 mm[Hg] Nathan Kiesha DO Work Phone: [facility] 08-12-2025 14:32-0400 Systolic blood pressure 138 mm[Hg] Nathan Kiesha DO Work Phone: [facility] 07-30-2025 15:36-0400 Body height 157.5 cm Nay Beltran DO Work Phone: [facility] 07-30-2025 15:36-0400 Body mass index (BMI) [Ratio] 27.62 kg/m2 Nay Beltran DO Work Phone: [facility] 07-30-2025 15:36-0400 Body temperature 97.11 [degF] Nay Beltran DO Work Phone: [facility] 07-30-2025 15:36-0400 Body weight 68.49 kg Nay Beltran DO Work Phone: [facility] 07-30-2025 15:36-0400 Diastolic blood pressure 68 mm[Hg] Nay Beltran DO Work Phone: [facility] 07-30-2025 15:36-0400 Heart rate 97 /min Nay Beltran DO Work Phone: [facility] 07-30-2025 15:36-0400 SaO2% (BldA) [Mass fraction] 98 % Nay Beltran DO Work Phone: [facility] 07-30-2025 15:36-0400 Systolic blood pressure 102 mm[Hg] Nay Beltran DO Work Phone: [facility] 07-15-2025 15:42-0400 Body mass index (BMI) [Ratio] 26.48 kg/m2 Nathan Kiesha DO Work Phone: [facility] 07-15-2025 15:42-0400 Body weight 65.68 kg Nathan Kiesha DO Work Phone: [facility] 07-15-2025 15:42-0400 Diastolic blood pressure 80 mm[Hg] Nathan Kiesha DO Work Phone: [facility] 07-15-2025 15:42-0400 Systolic blood pressure 120 mm[Hg] Nathan Kiesha DO Work Phone: [facility] 06-22-2025 14:33-0400 Body mass index (BMI) [Ratio] 26.73 kg/m2 Nathan Kiesha DO Work Phone: [facility] 06-22-2025 14:33-0400 Body weight 66.28 kg Nathan Kiesha DO Work Phone: [facility] 06-22-2025 14:33-0400 Diastolic blood pressure 74 mm[Hg] Nathan Kiesha DO Work Phone: [facility] 06-22-2025 14:33-0400 Systolic blood pressure 118 mm[Hg] Nathan Kiesha DO Work Phone: [facility] 05-25-2025 14:45-0400 Body mass index (BMI) [Ratio] 25.24 kg/m2 Nathan Kiesha DO Work Phone: [facility] 05-25-2025 14:45-0400 Body weight 62.6 kg Nathan Kiesha DO Work Phone: [facility] 05-25-2025 14:45-0400 Diastolic blood pressure 80 mm[Hg] Nathan Kiesha DO Work Phone: [facility] 05-25-2025 14:45-0400 Systolic blood pressure 122 mm[Hg] Nathan Kiesha DO Work Phone: [facility] 05-01-2025 10:29-0400 Body mass index (BMI) [Ratio] 25.68 kg/m2 Nom Nurse [facility] 05-01-2025 10:29-0400 Body weight 63.69 kg [facility] Nurse [facility] 01-19-2025 15:08-0500 Body mass index (BMI) [Ratio] 25.99 kg/m2 Nathan Kiesha DO Work Phone: [facility] 01-19-2025 15:08-0500 Body weight 64.47 kg Nathan Kiesha DO Work Phone: [facility] 01-19-2025 15:08-0500 Diastolic blood pressure 78 mm[Hg] Nathan Kiesha DO Work Phone: [facility] 01-19-2025 15:08-0500 Systolic blood pressure 122 mm[Hg] Nathan Kiesha DO Work Phone: [facility] 12-30-2024 15:53-0500 Body height 157.5 cm Nay Beltran DO Work Phone: [facility] 12-30-2024 15:53-0500 Body mass index (BMI) [Ratio] 25.61 kg/m2 Nay Nirajdaly DO Work Phone: [facility] 12-30-2024 15:53-0500 Body temperature 97.11 [degF] Nay Beltran DO Work Phone: [facility] 12-30-2024 15:53-0500 Body weight 63.5 kg Nay Beltran DO Work Phone: [facility] 12-30-2024 15:53-0500 Diastolic blood pressure 82 mm[Hg] Nay Beltran DO Work Phone: [facility] 12-30-2024 15:53-0500 Heart rate 51 /min Nay Beltran DO Work Phone: [facility] 12-30-2024 15:53-0500 SaO2% (BldA) [Mass fraction] 98 % Nay Beltran DO Work Phone: [facility] 12-30-2024 15:53-0500 Systolic blood pressure 122 mm[Hg] Nay Beltran DO Work Phone: [facility] 08-18-2024 11:15-0400 Body mass index (BMI) [Ratio] 25.97 kg/m2 Nathan Kiesha DO Work Phone: [facility] 08-18-2024 11:15-0400 Body weight 64.41 kg Nathan Kiesha DO Work Phone: [facility] 08-18-2024 11:15-0400 Diastolic blood pressure 70 mm[Hg] Nathan Kiesha DO Work Phone: [facility] 08-18-2024 11:15-0400 Systolic blood pressure 112 mm[Hg] Nathan Kiesha DO Work Phone: [facility] 07-22-2024 10:02-0400 Body mass index (BMI) [Ratio] 25.39 kg/m2 Nathan Kiesha DO Work Phone: [facility] 07-22-2024 10:02-0400 Body weight 62.96 kg Nathan Kiesha DO Work Phone: [facility] 07-22-2024 10:02-0400 Diastolic blood pressure 72 mm[Hg] Nathan Kiesha DO Work Phone: [facility] 07-22-2024 10:02-0400 Systolic blood pressure 122 mm[Hg] Nathan Kiesha DO Work Phone: [facility] 01-10-2024 10:55-0500 Body mass index (BMI) [Ratio] 28.17 kg/m2 Nathan Kiesha DO Work Phone: [facility] 01-10-2024 10:55-0500 Body weight 69.85 kg Nathan Kiesha DO Work Phone: [facility] 01-10-2024 10:55-0500 Diastolic blood pressure 84 mm[Hg] Nathan Kiesha DO Work Phone: [facility] 01-10-2024 10:55-0500 Systolic blood pressure 128 mm[Hg] Nathan Kiesha DO Work Phone: [facility] 09-12-2023 17:31-0400 Body temperature 98.96 [degF] [facility] 09-12-2023 17:31-0400 Diastolic blood pressure 91 mm[Hg] [facility] 09-12-2023 17:31-0400 FIO2 99 % [facility] 09-12-2023 17:31-0400 Heart rate 122 /min [facility] 09-12-2023 17:31-0400 Respiratory rate 16 /min [facility] 09-12-2023 17:31-0400 Systolic blood pressure 135 mm[Hg] [facility] 05-01-2023 10:55-0400 Body height 157.5 cm Srinivasa Downs APRN.CNP Work Phone: [facility] 05-01-2023 10:55-0400 Body weight 64.86 kg Srinivasa Reaper PEDORTHIST.MARKETING PROGRAM MANAGER Work Phone: [facility] 05-01-2023 10:55-0400 Diastolic blood pressure 64 mm[Hg] Srinivasa Reaper PEDORTHIST.MARKETING PROGRAM MANAGER Work Phone: [facility] 05-01-2023 10:55-0400 Systolic blood pressure 148 mm[Hg] Srinivasa Reaper PEDORTHIST.MARKETING PROGRAM MANAGER Work Phone: [facility] 01-31-2023 19:18-0500 Diastolic blood pressure 82 mm[Hg] [facility] 01-31-2023 19:18-0500 Heart rate 98 /min [facility] 01-31-2023 19:18-0500 Nursing Progress Note Reason Other: this RN discharged pt. pt verbalizes understanding and denies questiosn prior to discharge. [facility] 01-31-2023 19:18-0500 Respiratory rate 16 /min [facility] 01-31-2023 19:18-0500 SaO2% (BldA) [Mass fraction] 100 % [facility] 01-31-2023 19:18-0500 Systolic blood pressure 126 mm[Hg] [facility] 01-31-2023 18:00-0500 Diastolic blood pressure 92 mm[Hg] [facility] 01-31-2023 18:00-0500 Heart rate 110 /min [facility] 01-31-2023 18:00-0500 Mean blood pressure 107 mm[Hg] [facility] 01-31-2023 18:00-0500 SaO2% (BldA) [Mass fraction] 99 % [facility] 01-31-2023 18:00-0500 Systolic blood pressure 138 mm[Hg] [facility] 01-31-2023 17:00-0500 Diastolic blood pressure 97 mm[Hg] [facility] 01-31-2023 17:00-0500 Mean blood pressure 104 mm[Hg] [facility] 01-31-2023 17:00-0500 Systolic blood pressure 117 mm[Hg] [facility] 01-31-2023 16:38-0500 Heart rate 105 /min [facility] 01-31-2023 16:38-0500 Mean blood pressure 114 mm[Hg] [facility] 01-31-2023 16:38-0500 Respiratory rate 18 /min [facility] 01-31-2023 13:49-0500 Body temperature 97.88 [degF] [facility] 01-31-2023 13:49-0500 Heart rate 118 /min [facility] 12-30-2022 14:55-0500 Body temperature 97.88 [degF] [facility] 12-30-2022 14:55-0500 Diastolic blood pressure 81 mm[Hg] [facility] 12-30-2022 14:55-0500 Heart rate 84 /min [facility] 12-30-2022 14:55-0500 Mean blood pressure 100 mm[Hg] [facility] 12-30-2022 14:55-0500 Respiratory rate 20 /min [facility] 12-30-2022 14:55-0500 SaO2% (BldA) [Mass fraction] 98 % [facility] 12-30-2022 14:55-0500 Systolic blood pressure 137 mm[Hg] [facility] 12-30-2022 14:35-0500 Body temperature 97.88 [degF] [facility] 12-30-2022 14:35-0500 Diastolic blood pressure 79 mm[Hg] [facility] 12-30-2022 14:35-0500 Heart rate 82 /min [facility] 12-30-2022 14:35-0500 Mean blood pressure 94 mm[Hg] [facility] 12-30-2022 14:35-0500 Respiratory rate 16 /min [facility] 12-30-2022 14:35-0500 SaO2% (BldA) [Mass fraction] 97 % [facility] 12-30-2022 14:35-0500 Systolic blood pressure 123 mm[Hg] [facility] 12-30-2022 13:35-0500 Body temperature 97.88 [degF] [facility] 12-30-2022 13:35-0500 Diastolic blood pressure 70 mm[Hg] [facility] 12-30-2022 13:35-0500 Heart rate 80 /min [facility] 12-30-2022 13:35-0500 Mean blood pressure 89 mm[Hg] [facility] 12-30-2022 13:35-0500 Respiratory rate 17 /min [facility] 12-30-2022 13:35-0500 SaO2% (BldA) [Mass fraction] 96 % [facility] 12-30-2022 13:35-0500 Systolic blood pressure 126 mm[Hg] [facility] 12-30-2022 13:00-0500 Respiratory rate 12 /min [facility] 12-30-2022 12:55-0500 Respiratory rate 9 /min [facility] 12-30-2022 12:50-0500 Respiratory rate 10 /min [facility] 12-30-2022 08:15-0500 Body temperature 98.24 [degF] [facility] 12-30-2022 08:15-0500 Heart rate 111 /min Astrit Hajdari [facility] 12-02-2022 13:41-0500 Body temperature 98.2 [degF] Ritu Ryder DO Work Phone: [facility] [employer] 12-02-2022 13:41-0500 Diastolic blood pressure 87 mm[Hg] Ritu Ryder DO Work Phone: [facility] [employer] 12-02-2022 13:41-0500 Heart rate 111 /min Ritu Ryder DO Work Phone: [facility] [employer] 12-02-2022 13:41-0500 Respiratory rate 18 /min Ritu Ryder DO Work Phone: [facility] [employer] 12-02-2022 13:41-0500 SaO2% (BldA) [Mass fraction] 99 % Ritu Ryder DO Work Phone: [facility] [employer] 12-02-2022 13:41-0500 Systolic blood pressure 143 mm[Hg] Ritu Ryder DO Work Phone: [facility] [employer] 11-28-2022 00:45-0500 Body height 157.5 cm Ritu Ryder DO Work Phone: [facility] [employer] 11-28-2022 00:45-0500 Body mass index (BMI) [Ratio] 25.61 kg/m2 Ritu Ryder DO Work Phone: [facility] [employer] 11-28-2022 00:45-0500 Body weight 63.5 kg Ritu Ryder DO Work Phone: [facility] [employer] 11-27-2022 22:26-0500 Hourly Rounding Fredi DORSEY [facility] Comment on above: Result Comment: ensured that all pt belo ngings are sent with pt. pt has no questions or concerns. report given to EMS. pt stable and no s/s of distress. pt off unit to transfer 11-27-2022 22:00-0500 Diastolic blood pressure 97 mm[Hg] Fredi SCHUMACHERNOAMBecky [facility] 11-27-2022 22:00-0500 Heart rate 134 /min Fredi KARASIK [facility] 11-27-2022 22:00-0500 Hourly Rounding Fredi KARASIK [facility] 11-27-2022 22:00-0500 Mean blood pressure 116 mm[Hg] Fredi KARASIK [facility] 11-27-2022 22:00-0500 Systolic blood pressure 154 mm[Hg] Fredi KARASIK [facility] 11-27-2022 21:50-0500 Blood Pressure Location Fredi KARASIK [facility] 11-27-2022 21:50-0500 Diastolic blood pressure 90 mm[Hg] Fredi KARASIK [facility] 11-27-2022 21:50-0500 Heart rate 133 /min Fredi KARASIK [facility] 11-27-2022 21:50-0500 Hourly Rounding Fredi KARASIK [facility] 11-27-2022 21:50-0500 Mean blood pressure 113 mm[Hg] Fredi KARASIK [facility] 11-27-2022 21:50-0500 Respiratory rate 18 /min Fredi KARASIK [facility] 11-27-2022 21:50-0500 SaO2% (BldA) [Mass fraction] 98 % Fredi KARASIK [facility] 11-27-2022 21:50-0500 Systolic blood pressure 159 mm[Hg] Fredi KARASIK [facility] 11-27-2022 21:37-0500 Blood Pressure Location Fredi KARASIK [facility] 11-27-2022 21:37-0500 Diastolic blood pressure 88 mm[Hg] Fredi KARASIK [facility] 11-27-2022 21:37-0500 Heart rate 131 /min Fredi KARASIK [facility] 11-27-2022 21:37-0500 Mean blood pressure 111 mm[Hg] Fredi KARASIK [facility] 11-27-2022 21:37-0500 SaO2% (BldA) [Mass fraction] 97 % Fredi SCHUMACHERASIK [facility] 11-27-2022 21:37-0500 Systolic blood pressure 158 mm[Hg] Fredi KARASIK [facility] 11-27-2022 21:30-0500 Blood Pressure Location Fredi SCHUMACHERASIK [facility] 11-27-2022 21:30-0500 Body temperature 98.6 [degF] Fredi KARASIK [facility] 11-27-2022 19:00-0500 Body temperature 98.24 [degF] Fredi KARASIK [facility] 11-27-2022 17:15-0500 Body temperature 98.06 [degF] Fredi KARASIK [facility] 11-27-2022 14:02-0500 Heart rate 99 /min Fredi KARASIK [facility] 07-14-2022 07:00-0400 Body temperature 98.6 [degF] Kimylinn Dokken [facility] 07-14-2022 07:00-0400 Diastolic blood pressure 67 mm[Hg] Kaylinn Dokken [facility] 07-14-2022 07:00-0400 Heart rate 80 /min Kaylinn Dokken [facility] 07-14-2022 07:00-0400 Mean blood pressure 83 mm[Hg] Kaylinn Dokken [facility] 07-14-2022 07:00-0400 Respiratory rate 17 /min Kaylinn Dokken [facility] 07-14-2022 07:00-0400 Systolic blood pressure 115 mm[Hg] Kaylinn Dokken [facility] 07-14-2022 06:07-0400 Body temperature 98.24 [degF] Kaylinn Dokken [facility] 07-14-2022 06:07-0400 Diastolic blood pressure 79 mm[Hg] Kaylinn Dokken [facility] 07-14-2022 06:07-0400 Heart rate 90 /min Kaylinn Dokken [facility] 07-14-2022 06:07-0400 Respiratory rate 18 /min Kaylinn Dokken [facility] 07-14-2022 06:07-0400 SaO2% (BldA) [Mass fraction] 100 % Kaylinn Dokken [facility] 07-14-2022 06:07-0400 Systolic blood pressure 134 mm[Hg] Kaylinn Dokken [facility] 07-14-2022 05:30-0400 Hourly Rounding Nathan POP [facility] Comment on above: Result Comment: Pt discharged per physic santiago orders. Pt ambulates off unit with a steady gait 07-14-2022 05:15-0400 Diastolic blood pressure 77 mm[Hg] Nathan KIESHA [facility] 07-14-2022 05:15-0400 Heart rate 105 /min Nathan KIESHA [facility] 07-14-2022 05:15-0400 Hourly Rounding Nathan KIESHA [facility] 07-14-2022 05:15-0400 Mean blood pressure 89 mm[Hg] Nathan KIESHA [facility] 07-14-2022 05:15-0400 Respiratory rate 18 /min Nathan KIESHA [facility] 07-14-2022 05:15-0400 Systolic blood pressure 113 mm[Hg] Nathan KIESHA [facility] 04-18-2022 11:00-0400 Body height 160.02 cm Domo Hodges Other [facility] [employer] Other 04-18-2022 11:00-0400 Body mass index (BMI) [Ratio] 23.03 kg/m2 Domo Hodges Other [facility] [employer] Other 04-18-2022 11:00-0400 Body weight 58.97 kg Domo Hodges Other [facility] [employer] Other 02-09-2022 11:41-0400 Body height 157.48 cm Charlene Billow DO Work Phone: [id number] 320 Work Phone: 02-09-2022 11:41-0400 Body mass index (BMI) [Ratio] 24.51 kg/m2 Charlene Billow DO Work Phone: [id number]-GAOFY-Vijety 320 Work Phone: 02-09-2022 11:41-0400 Body surface area Derived from formula 1.61 m2 Charlene Billow DO Work Phone: XO-VUUXN-Crzuvx 320 Work Phone: 02-09-2022 11:41-0400 Body weight 60.78 kg Charlene Billow DO Work Phone: NA-ISIIP-Oawjtc 320 Work Phone: 02-09-2022 11:41-0400 Diastolic blood pressure 87 mm[Hg] Charlene Billow DO Work Phone: EI-VRPOG-Byvcqw 320 Work Phone: 02-09-2022 11:41-0400 Systolic blood pressure 136 mm[Hg] Charlene Billow DO Work Phone: XT-CJFHZ-Wgipal 320 Work Phone: 02-09-2022 11:41-0400 0 1 Charlene Billow DO Work Phone: TZ-RUOJZ-Lkldaw 320 Work Phone: Comment on above: GRAV [facility] [employer] 04-19-2021 14:53-0400 Body height 157.48 cm Charlene Billow DO Work Phone: ND-CTWLQ-Ptvylt 320 Work Phone: 04-19-2021 14:53-0400 Body mass index (BMI) [Ratio] 21.77 kg/m2 Charlene Billow DO Work Phone: MH-TTSWX-Swijkf 320 Work Phone: 04-19-2021 14:53-0400 Body surface area Derived from formula 1.53 m2 Charlene Billow DO Work Phone: OB-RGBAT-Pvbewv 320 Work Phone: 04-19-2021 14:53-0400 Body weight 53.98 kg Charlene Billow DO Work Phone: HS-SURDC-Wjwjzj 320 Work Phone: 04-19-2021 14:53-0400 Diastolic blood pressure 83 mm[Hg] Charlene Billow DO Work Phone: YL-GUARJ-Ygbjuq 320 Work Phone: 04-19-2021 14:53-0400 Heart rate 108 /min Charlene Billow DO Work Phone: GF-HBIQL-Jxxqwd 320 Work Phone: 04-19-2021 14:53-0400 Systolic blood pressure 142 mm[Hg] Charlene Billow DO Work Phone: RA-MRYCO-Sqwqqb 320 Work Phone: 04-19-2021 14:53-0400 0 1 Charlene Billow DO Work Phone: FC-DNOOK-Wjxprg 320 Work Phone: Comment on above: [employer] Encounters Encounter Date Encounter Type Care Provider Facility Start: 09-04-2025 End: 09-04-2025 Office consultation new/estab patient 60 min Mine Denise MD Work Phone: [facility] Comment on above: Diet controlled gest ational diabetes mellitus (GDM) in second trimester (Primary Dx); Essential hypertension affecting in third trimester Start: 09-03-2025 End: 09-03-2025 flow sheet Marbella Keane NP Work Phone: [facility] Comment on above: Hypertension affecti ng , antepartum ([facility]) (Primary Dx); 27 weeks gestation of ([facility]-H[facility]); Second trimester ([facility]) Start: 09-03-2025 End: 09-03-2025 ambulatory MARBELLA KEANE Not Available Start: 09-03-2025 End: 09-03-2025 Bamboo flowsheet Marbella Keane NP Work Phone: [facility] Start: 09-03-2025 End: 09-03-2025 Clinisync Result Encounter Nathan Kiesha DO Work Phone: [facility] External [facility] Unsolicited Start: 09-03-2025 End: 09-03-2025 Clinisync Result Encounter Nathan Kiesha DO Work Phone: [facility] Unsolicited Start: 09-01-2025 End: 09-01-2025 Telephone encounter Cha Harris RN [facility] Start: 08-29-2025 End: 08-29-2025 Clinisync Result Encounter Marbella Keane [facility] Work Phone: [facility] External [facility] Unsolicited Start: 08-29-2025 End: 08-29-2025 Clinisync Result Encounter Marbella Keane [facility] Work Phone: [facility] External Department Unsolicited Start: 08-27-2025 End: 08-27-2025 ambulatory MARBELLA KEANE Not Available Start: 08-27-2025 End: 08-27-2025 flow sheet Marbella Keane [facility] Work Phone: [facility] Comment on above: 26 weeks gestation o f ([facility]); Second trimester ([facility]); induced hypertension, antepartum ([facility]); Gestational diabetes mellitus (GDM) in second trimester, gestational diabetes method of control unspecified ([facility]) Start: 08-27-2025 End: 08-27-2025 Bamboo flowsheet Marbella Suely [facility] Work Phone: [facility] Start: 08-27-2025 End: 08-27-2025 Bamboo flowsheet Marbella Suely [facility] Work Phone: [facility] Start: 08-27-2025 End: 08-27-2025 Clinisync Result Encounter Marbella Keane [place] Work Phone: [facility] External Department Unsolicited Start: 08-25-2025 End: 08-26-2025 Clinisync Result Encounter Generic External Data Provider [facility] External [facility] Unsolicited Start: 08-25-2025 End: 08-26-2025 Clinisync Result Encounter Generic External Data Provider [facility] External Department Unsolicited Start: 08-24-2025 End: 08-24-2025 ambulatory Teena Sarmiento RN Work Phone: [facility] Comment on above: Gestational diabetes mellitus (GDM) in second trimester, gestational diabetes method of control unspecified Start: 08-21-2025 End: 08-21-2025 Chart abstracting Scanning Provider External [facility] Start: 08-18-2025 End: 08-19-2025 Chart abstracting Quynh Clements MD Work Phone: [facility] Start: 08-15-2025 End: 08-15-2025 ambulatory MARBELLA KEANE Facility:[facility] [place] Start: 08-12-2025 End: 08-12-2025 flow sheet Nathan Kiesha DO Work Phone: [facility] Comment on above: 24 weeks gestation o f ([facility]); Second trimester ([facility]); Elevated glucose tolerance test Start: 08-12-2025 End: 08-12-2025 ambulatory NATHAN KIESHA Not Available Start: 08-12-2025 End: 08-12-2025 ambulatory Nathan R KIESHA Facility:[facility] [place] Start: 08-01-2025 End: 08-01-2025 ambulatory Yomaira BELTRAN Facility:[facility] [place] Start: 07-30-2025 End: 07-30-2025 Patient encounter status Nay Beltran DO Work Phone: [facility] Work Phone: Start: 07-30-2025 End: 07-30-2025 Periodic preventive med est patient 18-39 yrs Nay Beltran DO Work Phone: [facility] 230 Comment on above: Wellness examination (Primary Dx); Hypertension, unspecified type ; Lipid screening Start: 07-30-2025 End: 07-30-2025 ambulatory NAY BELTRAN Not Available Start: 07-30-2025 End: 07-30-2025 Bamboo flowsheet Nay Beltran DO Work Phone: [facility] [address] Start: 07-30-2025 End: 07-30-2025 Bamboo flowsheet Nay Beltran DO Work Phone: [facility] [address] Start: 07-15-2025 End: 07-15-2025 flow sheet Nathan Kiesha DO Work Phone: [facility] Comment on above: 20 weeks gestation o f ([facility]); Second trimester ([facility]); Diabetes mellitus screening Start: 07-15-2025 End: 07-15-2025 [...] chronicity, unspecified location (Primary Dx); Second trimester ([facility]); 17 weeks gestation of ([facility]); Screening, , for anatomic survey ([facility]) Start: 06-22-2025 End: 06-22-2025 ambulatory NATHAN KIESHA Not Available Start: 06-22-2025 End: 06-22-2025 Bamboo flowsheet Nathan Kiesha DO Work Phone: [facility] Start: 06-22-2025 End: 06-24-2025 Bamboo flowsheet Nathan Kiesha DO Work Phone: [facility] Start: 06-22-2025 End: 06-24-2025 External Result Encounter Nathan Kiesha DO Work Phone: [facility] External Department Unsolicited Start: 05-25-2025 End: 05-25-2025 ambulatory NATHAN KIESHA Not Available Start: 05-25-2025 End: 05-25-2025 flow sheet Nathan Kiesha DO Work Phone: [facility] Comment on above: Nonintractable episo dic headache, unspecified headache type (Primary Dx); Second trimester ([facility]); 13 weeks gestation of ([facility]) Start: 05-25-2025 End: 05-25-2025 Bamboo [...] Unsolicited Start: 05-01-2025 End: 05-01-2025 ambulatory NAY NIRAJDALY Not Available Start: 05-01-2025 End: 05-01-2025 Office outpatient visit 5 minutes [facility] Kiesha Nurse [facility] Comment on above: GA: 9w6d Start: 03-13-2025 End: 03-13-2025 ambulatory Nathan R KIESHA Facility:[facility] [place] Start: 03-13-2025 End: 03-13-2025 Patient encounter procedure Nathan R KIESHA [facility] Start: 02-02-2025 End: 02-02-2025 Patient encounter procedure Cruz Rodríguez MD Work Phone: [facility] [place] Work Phone: Start: 02-02-2025 End: 02-02-2025 ambulatory Cruz Rodríguez MD Work Phone: [facility] Work Phone: Start: 01-22-2025 End: 01-22-2025 ambulatory Nathan R KIESHA Facility:[facility] [place] Start: 01-22-2025 End: 01-22-2025 Patient encounter procedure Nathan R KIESHA [facility] Start: 01-19-2025 End: 01-19-2025 Office outpatient visit [...] OB Start: 12-30-2024 End: 12-30-2024 ambulatory NAY R KAFTAN Not Available Start: 12-30-2024 End: 12-30-2024 Office outpatient visit 15 minutes Nay R Ruby DO Work Phone: [facility] 230 [...] encounter Charlene Bill ow DO Work Phone: [facility] Start: 04-25-2024 Telephone encounter Charlene Bill ow DO Work Phone: [facility] Comment on above: Surgery Cancelled Start: 01-10-2024 End: 01-10-2024 Office outpatient visit 15 minutes Nathan Kiesha DO Work Phone: [facility] Comment on above: Menorrhagia with reg ular cycle; Pelvic pain in female; Uses control Start: 01-02-2024 Refill Charlene Billow D O Work Phone: [facility] Comment on above: Refill Request Start: 12-31-2023 ambulatory Charlene Billow D O Work Phone: Obstetrics/Gynecology Comment on above: pain Start: 12-10-2023 End: 12-10-2023 ambulatory CHARLENE BILLOW Facility:[facility] Start: 10-22-2023 ambulatory Charlene Billow D O Work Phone: [facility] Start: 10-22-2023 Patient encounter procedure Charlene Billow DO Work Phone: Obstetrics/Gynecology Comment on above: office visit Start: 09-12-2023 End: 09-12-2023 Emergency department patient visit Von [facility]oco [facility] Start: 08-30-2023 Manual pelvic examination Charlene Billow DO Work Phone: Obstetrics/Gynecology Comment on above: Pelvic pain in femal e (Primary Dx) Start: 08-26-2023 ambulatory Charlene Billow D O Work Phone: Obstetrics/Gynecology Comment on above: painful periods Start: 08-24-2023 End: 08-24-2023 Manual pelvic examination Srinivasa Vicker JAMI.MARKETING PROGRAM MANAGER Work Phone: Gynecology Comment on above: High-tone pelvic stella or dysfunction (Primary Dx); Chronic pelvic pain in female Start: 08-24-2023 End: 08-24-2023 Telemedicine consultation with patient Srinivasa Reaper PEDORTHIST.MARKETING PROGRAM MANAGER Work Phone: [facility] Start: 08-24-2023 End: 08-24-2023 ambulatory SRINIVASA REAPER Facility:[facility] Start: 08-13-2023 ambulatory Charlene Billow D O Work Phone: Obstetrics/Gynecology Comment on above: painful period Start: 08-02-2023 Telephone encounter Charlene Bill ow DO Work Phone: Gynecology Comment on above: Insurance Authorizat ion (Orilissa) Start: 07-16-2023 End: 07-16-2023 ambulatory CHARLENE RODRIGUEZ Facility:[facility] Start: 06-12-2023 End: 06-12-2023 ambulatory [facility]E [facility] Facility:[facility] Start: 06-12-2023 End: 06-12-2023 Subsequent hospital visit by physician [facility] (I-Stat/1.5t) Radiology Comment on above: Pelvic and perineal pain [R10.2] Start: 05-17-2023 End: 05-17-2023 Manual pelvic examination Charlene Rodriguez DO Work Phone: Obstetrics/Gynecology Comment on above: Endometriosis (Prima ry Dx); Pelvic and perineal pain Start: 05-17-2023 End: 05-17-2023 Telemedicine consultation with patient Charlene Rodriguez DO Work Phone: ZHAO MARTIN [facility] Start: 05-17-2023 End: 05-17-20[address] [facility] Facility:[facility] Start: 05-11-2023 Telephone encounter Charlene escobedo DO Work Phone: Gynecology Comment on above: Vaginal Bleeding Start: 05-01-2023 End: 05-01-2023 ambulatory [facility] Facility:[facility] Start: 05-01-2023 End: 05-01-2023 Patient encounter procedure Srinivasa Downs PEDORTHIST.MARKETING PROGRAM MANAGER Work Phone: Gynecology Comment on above: Chronic pelvic pain in female (Primary Dx); Constipation, unspecified constipation type; High-tone pelvic floor dysfunction; Diastasis of rectus abdominis; Dysmenorrhea; Other specified dyspareunia Start: 04-22-2023 ambulatory Charlene Rodriguez D O Work Phone: Obstetrics/Gynecology Comment on above: painful Start: 01-31-2023 End: 01-31-2023 Emergency department patient visit Edin Bermudez [facility] Start: 12-30-2022 End: 12-30-2022 Patient encounter procedure Edin Bermudez [facility] Start: 12-05-2022 End: 12-05-2022 ambulatory TONIA DIALLO [facility] Start: 12-05-2022 End: 12-05-2022 Office outpatient visit 15 minutes Tonia Diallo DO Work Phone: [facility] Comment on above: Pre-eclampsia, sever e, delivered (Primary Dx) Start: 11-28-2022 End: 12-02-2022 Evaluation and management of inpatient RITU RYDER [facility] Start: 11-28-2022 End: 12-02-2022 Evaluation and management of inpatient Ritu Ryder DO Work Phone: [facility] Comment on above: Preeclampsia, severe , third trimester (Primary Dx) Start: 11-28-2022 End: 12-27-2022 Pre-admission assessment Fredi DORSEY [facility] Start: 11-27-2022 End: 11-27-2022 OB Triage Fredi WILLIAN [facility] Start: 07-14-2022 End: 07-14-2022 Emergency department patient visit Kumar Villagomez [facility] Start: 07-14-2022 End: 07-14-2022 OB Triage Nathan POP [facility] Start: 04-25-2022 End: 04-25-2022 Patient encounter procedure DOMO HODGES [facility] Start: 04-18-2022 End: 04-18-2022 ambulatory Domo Hodges Other [facility] [employer] Other Start: 04-18-2022 Patient encounter procedure Domo Hodges [facility] Gastroenterology Start: 02-09-2022 Office outpatient vi sit 15 minutes Charlene Rodriguez DO Work Phone: [id number] 320 Work Phone: Start: 09-29-2021 End: 10-02-2021 ambulatory [facility] Start: 09-29-2021 End: 10-02-2021 ambulatory OPAL LARA [facility] Start: 04-19-2021 AUDIT Charlene Keating O Work Phone: [id number] Work Phone: Start: 04-19-2021 PLVCPOBGYN, Provider : Charlene Rodriguez, Status: Pen, Time: 2:45 PM Nicohlas Chau MD Work Phone: VK-Juomnlo-Xbtirlanu Work Phone: Start: 04-18-2021 Chart Update Nicholas Keating Work Phone: RO-Quwkynp-Uxofahukr Work Phone: Procedures Date Procedure Procedure Detail Performing Clinician Start: 09-03-2025 ALL BUN Nathan Fazi o DO Work Phone: Start: 09-03-2025 ALL URIC ACID Nathan Ruchi io DO Work Phone: Start: 09-03-2025 [facility] ALT Nathan Fazi o DO Work Phone: Start: 09-03-2025 [facility] AST Nathan Fazi o DO Work Phone: Start: 09-03-2025 [facility] CREATININE Nathan Fa zio DO Work Phone: Start: 09-03-2025 [facility] URINE T PROTEIN CREAT RATIO Nathan Kiesha DO Work Phone: Start: 09-03-2025 Urnls dip stick/tabl et rgnt non-auto w/o micrscp Marbella Keane [place] Work Phone: Start: 08-29-2025 [facility] TOTAL PROTEIN 24 HOUR URINE Generic External Data Provider Start: 08-27-2025 US OB BPP W NON-STRESS Marbella Keane [place] Work Phone: Start: 08-27-2025 [facility] URINE T PROTEIN CREAT RATIO Generic External Data Provider Start: 08-27-2025 ALL CBC WITH AUTO DIFF Generic External Data Provider Start: 08-27-2025 Urnls dip stick/tabl et rgnt non-auto w/o micrscp Marbella Keane [place] Work Phone: Start: 08-25-2025 Bacteria identified in [...] pelvis w/o & w/c ontrast material Charlene Billfanny DO Work Phone: Start: 11-29-2022 Blood count platelet automated Jimmie Kaur PEDORTHIST - SIGNALER Work Phone: Start: 11-28-2022 Blood count platelet [...] Start: 05-16-2021 Antibody hiv-1&hiv-2 single result Megadyne [id number] Start: 05-16-2021 Iaad ia hepatitis b surface antigen Megadyne [id number] Start: 02-28-2021 Cystoscopy DOMO LOVE NAVARRETE Start: 08-30-2020 End: 08-30-2020 Antibody screen Comment on above: Performed By: #### T +S #### [facility] [address] [place] [address] Order Comment: TEST TYPE + SCREEN WAS CANCELLED, 08/30/2020 13:37 JOP. Performed By: #### T +S #### [facility] [address] [place] [address] Start: 08-07-2018 RIGHT SHOULDER OPEN DISTAL CLAVICLE EXCISION 1 DOMO HODGES Comment on above: RIGHT SHOULDER OPEN DISTAL CLAVICLE EXCISION RIGHT SHOULDER OPEN DISTAL CLAVICLE EXCISION Appendectomy DOMO ALEMANCADEPearl Betamethasone (substance) Gr egory KARASIK Comment on above: Dose #1: 11/27/22 Colonoscopy DOMO DICADEPearl Endoscope, device (p hysical object) [facility] Nicholas Chau MD Work Phone: Plan of Treatment Date Care Activity Detail Author Start: 2045 Zoster Vaccines (1 of 2) Zoste r Vaccines (1 of 2) [facility] Start: 09-03-2028 Screening for malign ant neoplasm of cervix [facility] Start: 08-18-2027 Screening for malign ant neoplasm of cervix Pap Smear [facility] Start: 09-04-2026 Adult BMI Screening Adult BMI Screen ing [facility] Start: 08-24-2026 Adult BMI Screening Adult BMI Screen ing [facility] Start: 10-05-2025 End: 10-05-2025 Patient encounter procedure 10/05/2025 3:00 PM EST Office Visit Maternal- Medicine at [facility] [address] [place] [address] Kayleigh Rizzo PA-C [address] [place] [address] [facility]- [facility] at [facility] Start: 09-15-2025 End: 09-15-2025 Patient encounter procedure 09/15/2025 2:50 PM EDT Routine LANETTE MOODY [address] [place] [address] Zenobia Gutierrez PA [address] [place] [address] [facility] MO[facility] Start: 09-10-2025 End: 09-10-2025 Telemedicine consultation with patient 09/10/2025 11:00 AM EDT Telemedicine [facility] [place] [address] [phone] Quynh Clements MD [address], [address] [place] [address] [facility] [place] Start: 09-10-2025 End: 09-10-2025 Patient encounter procedure 09/10/2025 9:45 AM EDT Appointment [facility] [place] [address] [facility] [address] [place] [phone] [facility] [place] Start: 09-07-2025 End: 09-07-2025 Patient encounter procedure [facility] Start: 09-04-2025 End: 09-04-2025 Patient encounter procedure 09/04/2025 3:00 PM EDT Office Visit Maternal- Medicine at [facility] [address] [place] [address] Mine Denise MD [address] [place] [address] [facility]- [facility] at [facility] Start: 09-03-2025 End: 09-03-2025 Patient encounter procedure LANETTE MOODY Comment on above: Arrived Start: 08-27-2025 End: 08-27-2025 Patient encounter procedure 08/27/2025 3:20 PM EDT Routine LANETTE MOODY [address] [place] [phone] Marbella Keane, [place] [address] [place] [phone] LANETTE [place] OBMICHELLEN Start: 08-27-2025 End: 08-27-2026 Alanine aminotransferase [Enzymatic activity/volume] in Serum or Plasma ALT Lab Routine induced hypertension, antepartum ([facility]) Expected: 08/27/2025 (Approximate), Expires: 08/27/2026 [facility] Comment on above: Expected: 08/27/2025 (Approximate), Expires: 08/27/2026 Start: 08-27-2025 End: 08-27-2026 Aspartate aminotransferase [Enzymatic activity/volume] in Serum or Plasma AST Lab Routine induced hypertension, antepartum ([facility]) Expected: 08/27/2025 (Approximate), Expires: 08/27/2026 [facility] Comment on above: Expected: 08/27/2025 (Approximate), Expires: 08/27/2026 Start: 08-27-2025 End: 08-27-2026 CBC W Auto Differential panel - Blood CBC and differential Lab Routine induced hypertension, antepartum ([facility]) Expected: 08/27/2025 (Approximate), Expires: 08/27/2026 [facility] Comment on above: Expected: 08/27/2025 (Approximate), Expires: 08/27/2026 Start: 08-27-2025 End: 08-27-2026 Creatinine [Mass/volume] in Serum or Plasma Creatinine Lab Routine induced hypertension, antepartum ([facility]) Expected: 08/27/2025 (Approximate), Expires: 08/27/2026 [facility] Work Phone: Comment on above: Expected: 08/27/2025 (Approximate), Expires: 08/27/2026 Start: 08-27-2025 End: 08-27-2026 Lactate dehydrogenase [Enzymatic activity/volume] in Serum or Plasma by Lactate to pyruvate reaction Lactate dehydrogenase Lab Routine induced hypertension, antepartum ([facility]-HCC) Expected: 08/27/2025, Expires: 08/27/2026 [facility] Comment on above: Expected: 08/27/2025 , Expires: 08/27/2026 Start: 08-27-2025 End: 08-27-2026 Protein, urine, 24 hour Protein, urine, 24 hour Lab Routine induced hypertension, antepartum ([facility]CC) Expected: 08/27/2025 (Approximate), Expires: 08/27/2026 [facility] Comment on above: Expected: 08/27/2025 (Approximate), Expires: 08/27/2026 Start: 08-27-2025 End: 08-27-2026 Pt and ptt Pt and ptt Lab Routine induced hypertension, antepartum ([facility]-HCC) Expected: 08/27/2025, Expires: 08/27/2026 [facility] Comment on above: Expected: 08/27/2025 , Expires: 08/27/2026 Start: 08-27-2025 End: 08-27-2026 Urate [Mass/volume] in Serum or Plasma Uric acid Lab Routine induced hypertension, antepartum ([facility]) Expected: 08/27/2025 (Approximate), Expires: 08/27/2026 [facility] Comment on above: Expected: 08/27/2025 (Approximate), Expires: 08/27/2026 Start: 08-27-2025 End: 08-27-2026 Urea nitrogen [Mass/volume] in Serum or Plasma BUN Lab Routine induced hypertension, antepartum ([facility]-HCC) Expected: 08/27/2025, Expires: 08/27/2026 [facility] Comment on above: Expected: 08/27/2025 , Expires: 08/27/2026 Start: 08-27-2025 End: 02-25-2026 US biophysical profile w non stress test US biophysical profile w non stress test Imaging Routine induced hypertension, antepartum ([facility]CC) Gestational diabetes mellitus (GDM) in second trimester, gestational diabetes method of control unspecified ([facility]) Expected: 08/27/2025 (Approximate), Expires: 02/25/2026 [facility] Comment on above: Expected: 08/27/2025 (Approximate), Expires: 02/25/2026 Start: 08-24-2025 End: 08-24-2025 ambulatory 08/24/2025 1:30 PM EDT Support Visit Maternal- Medicine at [facility] [address] [place] [address] Teena Sarmiento RN [address] [facility], [address] [place] [address] Kerline Augustin, RD [address] [facility], [address] [place] [address] [facility]- Medicine at [facility] Start: 08-24-2025 End: 08-24-2025 Patient encounter procedure 08/24/2025 11:00 AM EDT Office Visit [facility] [address] [place] [phone] Nathan Pop DO [address] [place] [address] [facility] Start: 08-12-2025 End: 08-12-2025 Patient encounter procedure 08/12/2025 2:40 PM EDT Routine LANETTE MOODY [address] [facility] [place] [phone] Nathan Pop DO [address] [facility] [place] [address] LANET[facility] [place] [facility] Start: 08-12-2025 End: 08-12-2026 Measurement of glucose 3 hours after glucose challenge for glucose tolerance test Glucose tolerance, 3 hours Lab Routine Elevated glucose tolerance test Expected: 08/12/2025 (Approximate), Expires: 08/12/2026 [facility] Work Phone: Comment on above: Expected: 08/12/2025 (Approximate), Expires: 08/12/2026 Start: 08-12-2025 End: 08-12-2025 Professional / ancillary services management 08/12/2025 2:00 PM EDT Ancillary Procedure LANETTE MOODY [address] [facility] [place] [address] LANETTE [place] [facility] Start: 07-31-2025 End: 08-29-2025 CBC W Auto Differential panel - Blood CBC and differential Lab Routine Hypertension, unspecified type Wellness examination Expected: 07/31/2025 (Approximate), Expires: 08/29/2025 [facility] Work Phone: Comment on above: Expected: 07/31/2025 (Approximate), Expires: 08/29/2025 Start: 07-31-2025 End: 08-29-2025 Comprehensive metabolic 2000 panel - Serum or Plasma Comprehensive metabolic panel Lab Routine Hypertension, unspecified type Wellness examination Expected: 07/31/2025 (Approximate), Expires: 08/29/2025 [facility] Comment on above: Expected: 07/31/2025 (Approximate), Expires: 08/29/2025 Start: 07-31-2025 End: 08-29-2025 Lipid 1996 panel - Serum or Plasma Lipid panel Lab Routine Wellness examination Lipid screening Expected: 07/31/2025 (Approximate), Expires: 08/29/2025 [facility] Comment on above: Expected: 07/31/2025 (Approximate), Expires: 08/29/2025 Start: 07-30-2025 End: 07-30-2025 Patient encounter procedure 07/30/2025 3:40 PM EDT Office Visit [facility] [address] [address] [place] [address] Nay Beltran DO [address] [address] [place] [address] Arrived [facility] Comment on above: Arrived Start: 07-27-2025 Influenza vaccination [facility] Start: 07-15-2025 End: 07-15-2025 Patient encounter procedure 07/15/2025 3:30 PM EDT Routine LANETTE MOODY [address] [facility] [place] [phone] Nathan Pop DO [address] [facility] [address] [place], [place] [phone] [facility] [place] [facility] Start: 07-15-2025 End: 07-15-2025 Professional / ancillary services management 07/15/2025 2:30 PM EDT Ancillary Procedure LANETTE MOODY [address] [facility] [place] [phone] [facility] Start: 07-15-2025 End: 07-15-2026 CBC panel - Blood by Automated count CBC Lab Routine Diabetes mellitus screening Expected: 07/15/2025 (Approximate), Expires: 07/15/2026 [facility] Work Phone: Comment on above: Expected: 07/15/2025 (Approximate), Expires: 07/15/2026 Start: 07-15-2025 End: 07-15-2026 Measurement of glucose 1 hour after glucose challenge for glucose tolerance test Glucose tolerance, 1 hour Lab Routine Diabetes mellitus screening Expected: 07/15/2025 (Approximate), Expires: 07/15/2026 [facility] Comment on above: Expected: 07/15/2025 (Approximate), Expires: 07/15/2026 Start: 06-22-2025 End: 06-22-2025 Patient encounter procedure 06/22/2025 2:10 PM EDT Routine [facility] [address] [facility] [place] [address] Nathan Pop, DO [address] [place] [address] Arrived [facility] Comment on above: Arrived Start: 06-22-2025 End: 12-23-2025 Alpha fetoprotein, maternal Alpha fetoprotein, maternal Lab Routine Second trimester ([facility]) 17 weeks gestation of ([facility]) Expected: 06/22/2025 (Approximate), Expires: 12/23/2025 [facility] Comment on above: Expected: 06/22/2025 (Approximate), Expires: 12/23/2025 Start: 06-22-2025 End: 09-22-2025 US for US OB 14+ weeks anatomy scan Imaging Routine Screening, , for anatomic survey ([facility]) Expected: 06/22/2025, Expires: 09/22/2025 [facility] Work Phone: Comment on above: Expected: 06/22/2025 , Expires: 09/22/2025 Start: 05-25-2025 End: 05-25-2025 Patient encounter procedure 05/25/2025 2:40 PM EDT Routine [facility] [address] [facility] [address] [phone] Nathan Pop, DO [address] [place] [address] [facility] Start: 05-01-2025 End: 05-01-2026 [...] first trimester Expected: 05/01/2025 (Approximate), Expires: 05/01/2026 [facility] Comment on above: Expected: 05/01/2025 (Approximate), [...] above: Arrived Start: 07-27-2024 Influenza vaccination [facility] Start: 07-22-2024 End: 07-22-2025 US for US PELVIS-TRANSVAG IF INDICATED Imaging Routine Dysmenorrhea, unspecified Expected: 07/22/2024 (Approximate), Expires: 07/22/2025 [facility] Work Phone: Comment on above: Expected: 07/22/2024 (Approximate), Expires: 07/22/2025 Start: 06-23-2024 End: 06-23-2024 Patient encounter procedure 06/23/2024 10:30 AM EDT Office Visit Obstetrics/Gynecology [address] [address] Charlene Rodriguez DO [address] [place] [address] 2 WEEK POST OP Obstetrics/Gynecolo gy Comment on above: 2 WEEK POST OP Start: 05-27-2024 End: 05-27-2024 Admission to same day surgery center 05/27/2024 7:30 AM EDT - 05/27/2024 9:30 AM EDT Surgery [facility] [address] [place] [address] Charlene Rodriguez DO [address] [place] [address] LAPAROSCOPY FULGURATION OR EXCISION OF LESIONS OF THE OVARY PELVIC VISCERA OR PERITONEAL SURFACE BY ANY METHOD [facility] Comment on above: LAPAROSCOPY FULGURAT [...] physician 05/27/2024 7:30 AM EDT Hospital Encounter [facility] [address] [place] [address] Charlene Rodriguez DO [address] [place] [address] Endometriosis [N80.9] [facility] Comment on above: Endometriosis [N80.9 ] Start: 05-25-2024 Influenza vaccination Influenza Vacc ine (#1) [facility] Comment on above: Postponed from 07/27 (Patient Refused) Start: 05-20-2024 End: 05-20-2024 ambulatory 05/20/2024 10:00 AM EDT [facility] CHECK PILOT UROL [facility] [address] [address] [place], Uro Managing Supervisor Nurse [address] [place] [address] RN TEACHING CHECK PILOT UROL [facility] Comment on above: RN TEACHING Start: 04-22-2024 End: 04-22-2024 Patient encounter procedure 04/22/2024 9:00 AM EDT Office Visit [facility] [address] [place] [phone] Cruz Rodríguez MD [address] [place] [address] [facility] Start: 2024 DTaP,Tdap and Td Vac cines (7 - Td or Tdap) DTaP,Tdap and Td Vaccines (7 - Td or Tdap) [facility] Start: 2024 DTaP/Tdap/Td Vaccine s (7 - Td or Tdap) DTaP/Tdap/Td Vaccines (7 - Td or Tdap) [facility] Start: 2024 Urine microalbumin profile DTa P,Tdap,Td Vaccine (7 - Td or Tdap) [facility] Start: 01-30-2024 End: 01-30-2024 Patient encounter procedure 01/30/2024 11:10 AM EST Consult [facility] [address] [place] [phone] Nathan Pop, [address] [place], [place] [phone] [facility] Start: 01-15-2024 End: 01-15-2024 Professional / ancillary services management 01/15/2024 8:00 AM EST Ancillary Procedure [facility] [address] [place] [address] [facility] Start: 01-10-2024 End: 01-10-2025 US for US PELVIS-TRANSVAG IF INDICATED Imaging Routine Pelvic pain in female Expected: 01/10/2024 (Approximate), Expires: 01/10/2025 [facility] Work Phone: Comment on above: Expected: 01/10/2024 (Approximate), Expires: 01/10/2025 Start: 11-26-2023 Behavioral Health Screening Behavioral Health Screening [facility] Start: 11-26-2023 Depression Assessment [facility] Start: 07-27-2023 Covid-19 Vaccine ( season) Covid-19 Vaccine () [facility] Start: 07-27-2023 Influenza vaccination C [facility] Start: 11-26-2022 DEPRESSION ASSESSMENT DEPRESSION ASS ESSMENT [facility] Start: 07-27-2022 Influenza vaccination Influenza Vacc ine (#1) [facility] Start: 05-23-2022 FUV, Provider: Charlene Rodriguez, Status: Pen, Time: 1:30 PM FUV, Provider: Charlene Rodriguez, Status: Pen, Time: 1:30 PM [id number] Work Phone: Start: 08-16-2021 FUV, Provider: Charlene Rodriguez, Status: Pen, Time: 11:15 AM FUV, Provider: Charlene Rodriguez, Status: Pen, Time: 11:15 AM [id number] Work Phone: Start: 2016 PAP TESTING PAP TESTING [facility] Start: 2016 Screening for malign ant neoplasm of cervix [facility] Start: 2014 DTaP,Tdap and Td Vac cines (1 - Tdap) DTaP,Tdap and Td Vaccines (1 - Tdap) [facility] Start: 2014 DTaP/Tdap/Td Vaccine s (1 - Tdap) DTaP/Tdap/Td Vaccines (1 - Tdap) [facility] Start: 2014 Urine microalbumin profile [facility] Start: 2013 Adult BMI Follow Up Plan Adult BMI Follow Up Plan [facility] Start: 2013 Adult BMI Screening Adult BMI Screen ing [facility] Start: 2013 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 AND TAXI RIGO DISEASE VISIT ANNUAL PCP TEAM CHRONIC DISEASE VISIT [facility] Start: 2013 BP CONTROLLED (<130/80) BP CONTROLLE D (<130/80) [facility] Start: 2013 HEPATITIS C SCREENING HEPATITIS C [facility] Start: 2013 Hepatitis C screening Hepatitis C [facility] Start: 2013 HIV SCREENING HIV SCREENING [facility] Start: 2013 HIV screening HIV Screening [facility] Start: 2007 Depression Screening Depression Scre ening [facility] Start: 2007 Tobacco Screening Tobacco Screening [facility] Start: 05-31-2000 Varicella vaccination Varicell a Vaccines (1 of 2 - 2-dose childhood series) [facility] Start: 1996 MMR Vaccines (1 of 1 - Standard series) MMR Vaccines (1 of 1 - Standard series) [facility] Start: 1996 Varicella vaccination Varicell a Vaccines (1 of 2 - 2-dose childhood series) [facility] Start: 1995 COVID-19 VACCINE (#1) COVID-19 VACCI NE (#1) [facility] Start: 1995 HEPATITIS B (1 of 3 - 3-dose series) HEPATITIS B (1 of 3 - 3-dose series) [facility] Start: 1995 Hepatitis B Vaccine (1 of 3 - 3-dose series) Hepatitis B Vaccine (1 of 3 - 3-dose series) [facility] Start: 1995 Hepatitis B Vaccines (1 of 3 - 3-dose series) Hepatitis B Vaccines (1 of 3 - 3-dose series) [facility] Start: 1995 Lipid panel Lipid Panel [facility] Bacteria identified in Urine by Culture Urine culture Microbiology Routine Missed menses Ordered: 05/01/2025 [facility] Comment on above: Ordered: 05/01/2025 CBC W Auto Different ial panel - Blood CBC and differential Lab Routine Missed menses , unspecified gestational age Ordered: 05/01/2025 [facility] Comment on above: Ordered: 05/01/2025 Cytology Cervical or vaginal smear or scraping study Pap Smear Pathology and Cytology Routine Well woman exam with routine gynecological exam Ordered: 08/18/2024 [facility] Work Phone: Comment on above: Ordered: 08/18/2024 Hemoglobin A1c/Hemoglobin.total in Blood Hemoglobin A1c Lab Routine Missed menses , unspecified gestational age Ordered: 05/01/2025 [facility] Comment on above: Ordered: 05/01/2025 Hepatitis B virus siddiqui rface Ag [Presence] in Serum or Plasma by Immunoassay Hepatitis B surface antigen Lab Routine Missed menses , unspecified gestational age Ordered: 05/01/2025 [facility] Comment on above: Ordered: 05/01/2025 Hepatitis C virus Ab [Presence] in Serum or Plasma by Immunoassay Hepatitis C antibody Lab Routine Missed menses , unspecified gestational age Ordered: 05/01/2025 [facility] Comment on above: Ordered: 05/01/2025 HIV-1/HIV-2 antigen/antibody combination immunoassay HIV-1 and HIV-2 antibodies Lab Routine Missed menses , unspecified gestational age Ordered: 05/01/2025 [facility] Comment on above: Ordered: 05/01/2025 End: 06-15-2024 Mri pelvis w/o & w/contrast material MRI FEMALE PELVIS WO/W IVCON Radiology Routine Pelvic and perineal pain 1 Occurrences starting 05/17/2023 until 06/15/2024 [facility] Work Phone: Comment on above: 1 Occurrences starti ng 05/17/2023 until 06/15/2024 Reagin Ab [Presence] in Serum by RPR RPR Lab Routine Missed menses , unspecified gestational age Ordered: 05/01/2025 [facility] Comment on above: Ordered: 05/01/2025 Rubella antibody, IgG Rubella an tibody, IgG Lab Routine Missed menses , unspecified gestational age Ordered: 05/01/2025 [facility] Comment on above: Ordered: 05/01/2025 End: 11-30-2022 Tissue exam [facility] Work Phone: Comment on above: Once (Lab) for 1 Occ urrences starting 11/30/2022 until 11/30/2022, 1 completed [facility] [place] Immunizations Immunization Date Immunization Notes Care Provider Mary walters 09-11-2014 hepatitis A vaccine, adult dosage Nathan Pop DO Work Phone: [facility] 09-11-2014 human papilloma viru s vaccine, quadrivalent Nathan Kiesha DO Work Phone: [facility] 09-11-2014 influenza, seasonal, injectable, preservative free Nathan Kiesha DO Work Phone: [facility] 09-11-2014 influenza virus vaccine, unspecified formulation Toinaalex Galvezlla DO Work Phone: [facility] 05-04-2014 human papilloma viru s vaccine, quadrivalent Nathan Kiesha DO Work Phone: [facility] 2014 hepatitis A vaccine, adult dosage Nathan Kiesha DO Work Phone: [facility] 2014 human papilloma viru s vaccine, quadrivalent Nathan Kiesha DO Work Phone: [facility] 2014 tetanus toxoid, redu quinton diphtheria toxoid, and acellular pertussis vaccine, adsorbed Nathan Kiesha DO Work Phone: [facility] 04-03-2007 meningococcal polysaccharide (groups A, C, Y and W-135) diphtheria toxoid conjugate vaccine (MCV4P) Nathan Kiesha DO Work Phone: [facility] 05-03-2000 diphtheria, tetanus toxoids and acellular pertussis vaccine, unspecified formulation Nathan Kiesha DO Work Phone: [facility] 05-03-2000 measles, mumps and rubella virus vaccine Nathan Kiesha DO Work Phone: [facility] 05-03-2000 poliovirus vaccine, inactivated Nathan Kiesha DO Work Phone: [facility] 12-29-1997 diphtheria, tetanus toxoids and acellular pertussis vaccine, unspecified formulation Nathan Kiesha DO Work Phone: [facility] 08-01-1996 DTP-Haemophilus influenzae type b conjugate vaccine Nathan Kiesha DO Work Phone: [facility] 08-01-1996 hepatitis B vaccine, pediatric or pediatric/adolescent dosage Nathan Kiesha DO Work Phone: [facility] 08-01-1996 measles, mumps and rubella virus vaccine Nathan Kiesha DO Work Phone: [facility] 08-01-1996 trivalent poliovirus vaccine, live, oral Nathan Kiesha DO Work Phone: [facility] 1995 DTP-Haemophilus influenzae type b conjugate vaccine Nathan Kiesha DO Work Phone: [facility] 1995 hepatitis B vaccine, pediatric or pediatric/adolescent dosage Nathan Kiesha DO Work Phone: [facility] 1995 trivalent poliovirus vaccine, live, oral Nathan Kiesha DO Work Phone: [facility] 1995 DTP-Haemophilus influenzae type b conjugate vaccine Nathan Kiesha DO Work Phone: [facility] 1995 hepatitis B vaccine, pediatric or pediatric/adolescent dosage Nathan Kiesha DO Work Phone: [facility] 1995 trivalent poliovirus vaccine, live, oral Nathan Kiesha DO Work Phone: [facility] NEGATED: Highlighted row has not occurred!12-02-2022 measles, mumps and rubella virus vaccine Ritu Ryder DO Work Phone: [facility] [employer] Comment on above: Deferred: Other - Ru haja Immune NEGATED: Highlighted row has not occurred!12-02-2022 tetanus toxoid, reduced diphtheria toxoid, and acellular pertussis vaccine, adsorbed Ritu Ryder DO Work Phone: [facility] [employer] Comment on above: Deferred: No longer needed - Refused Tdap vaccine. Payers Date Payer Category Payer Self-pay 2024 Commercial [facility] - [facility] [employer] [id number] 2024 Private Health Insurance [employer] [id number] 2024 Unknown [id number] 2022 Medicaid O [facility] MEDICAID [id number] 2022 Medicaid [id number] 2022 Unknown 2022 Unknown [id number] 2020 Unknown [id number] 2018 Medicaid [id number] 2018 Private Health Insurance [id number] 1995 Unknown [id number] 2.16.840.1.192947.3.579. 2.174 1995 Unknown [id number] 2.16.840.1.600808.3.579. 2.174 1995 Unknown [id number] 2.16.840.1.874911.3.579. 2.727 1995 Unknown [id number] 2.16.840.1.710934.3.579. 2.727 1995 Unknown [id number] 2.16.840.1.665241.3.579. 2.727 1995 Unknown [id number] 2.16.840.1.451111.3.579. 2.727 1995 Unknown [id number] 2.16.840.1.465464.3.579. 2.727 1995 Unknown [id number] 2.16.840.1.233096.3.579. 2.727 1995 Unknown [id number] 2.16.840.1.175373.3.579. 2.1286 1995 Unknown [id number] 2.16.840.1.306143.3.579. 2.9 1995 Unknown [id number] 2.16.840.1.830413.3.579. 2.1259 1995 Unknown [id number] 2.16.840.1.506690.3.579. 2.1259 1995 Unknown [id number] 2.16.840.1.013983.3.579. 2.1259 1995 Unknown [id number] 2.16.840.1.181892.3.579. 2.9 1995 Unknown [id number] 2.16.840.1.132424.3.579. 2.1259 1995 Unknown [id number] 2.16.840.1.362025.3.579. 2.1259 1995 Unknown [id number] 2.16.840.1.084744.3.579. 2.1259 1995 Unknown [id number] 2.16.840.1.668753.3.579. 2.9 1995 Unknown [id number] 2.16.840.1.758301.3.579. 2.9 1995 Unknown [id number] 2.16.840.1.281611.3.579. 2.9 1995 Unknown [id number] 2.16.840.1.210059.3.579. 2.1259 Unknown [id number] 2.16.840.1.416665.3.579. 2.531 Social History Date Type Detail Facility Start: 01-06-2021 End: 07-16-2023 Always uses seat belt Always uses seat belt [facility] Start: 12-10-2018 End: 03-10-2021 Tobacco smoking status Never smoked tobacco (finding) [facility] Tobacco smoking status Never [facility] Start: 01-06-2021 End: 07-16-2023 Sex Assigned At Female [facility] [employer] Other Tobacco [facility] Comment on above: denies. Tobacco smoking status [facility] Start: 12-10-2018 End: 04-11-2023 Tobacco use and exposure Smokeless tobacco non-user [facility] Start: 04-11-2023 End: 12-10-2023 Alcohol intake Current drinker of alcohol (finding) [facility] Start: 10-08-2020 Alcohol Comment maybe a few dr martinez a month [facility] Start: 1995 Sex Assigned At Not on file S [facility] Start: 01-10-2024 End: 09-03-2025 Alcohol intake Lifetime non-drinker (finding) [facility] Within the last year , have you been afraid of your partner or ex-partner? No [facility] Are you now , , , [...] at all [facility] (I/We) worried tammy er (my/our) food would run out before (I/we) got money to buy more. Never true [facility] Start: 04-23-2023 Education 13 [facility] Start: 04-23-2023 Alcohol Comment caffeine: 1-2 cups per day, coffee and pop [facility] Start: 11-28-2022 History SDOH IPV Fear 2 S [facility] Start: 11-28-2022 History SDOH Housing Places Lived 1 [facility] Start: 04-12-2022 [facility] Start: 11-18-2022 End: 12-05-2022 Exposure to SARS-CoV-2 (event) Not sure [facility] Are you now , , , , never or living with a partner? [facility] Do you feel stress - tense, restless, nervous, or anxious, or unable to sleep at night because your mind is troubled all the time - these days [OSQ] Only a little [facility] Start: 12-02-2018 End: 02-03-2025 Sex Female (finding) [facility] Start: 1995 Sex Assigned At Female F [facility] Start: 08-19-2025 End: 09-04-2025 Alcoholic beverage intake Current non-drinker of alcohol (finding) [employer] [facility] Procedure Code Equipment Code Equipment Origin al Text Equipment Identifier Dates 1 strip by In Vi tro route Daily Use in the morning prior to breakfast, 1 hour after each meal for a total of 4times daily. [id number] Start: 08-20-2025 End: 09-19-2025 1 each by In Vit ro route Daily Use to check FSBS four times daily [id number] Start: 08-20-2025 End: 09-19-2025 Use pen needles to give insulin. [id number] Start: 09-04-2025 Functional Status Date Assessment Result Facility 07-30-2025 Patient Health Quest ionnaire 2 item (PHQ-2) [Reported] [facility] 09-12-2023 Functional Status N/A [facility] 01-31-2023 Functional Status N/A [facility] 12-30-2022 Functional Status N/A [facility] 11-27-2022 Functional Status N/A [facility] 07-14-2022 N/A [facility] Clinical Notes 04-18-2022 to 09-04-2025 Radha Magdaleno RN - 09/04/2025 3:00 PM Roberto Denise MD - 09/04/2025 3:00 PM Laina Magdaleno RN - 09/04/2025 3:00 PM Kelly Keane NP - 09/03/2025 3:50 PM EDT Note Date & Type Note Facility 09-04-2025 History of Present illness Narrative Headache/epigastric pain/blurry vision/swelling? Patient reports occasional headaches, states primary OB aware Cramping/contractions? No Spotting/vaginal bleeding? No Loss or gush of fluid like your water may have broken? No Do you have cats at home? No Do you change the litter box (reason: risk of toxoplasmosis)? N/A Genetic testing done this here or other office? Yes Have you been seen here at [facility] in a previous ? No Recent ER visits or hospitalizations? 09/03/25 Patti to r/o preeclampsia. Patient states labs WNL Bring blood sugar log or meter with you today? (Please bring them with you for every visit at [facility]) Yes Flu vaccine (Sep-January)? N/A Any concerns that you would like me to mention to the provider today? No REASON FOR CONSULTATION: Maternal gestational diabetes. HISTORY [...] and the other consultants, we search on [facility] and all the available care everywhere epic I did review all the imaging studies of the patient available on EMR, ordered by the primary care physician and the other strategy consultant HABITS: Patient activity no restrictions, diet [...] oz) LMP 02/21/2025 (Exact Date) BMI 29.04 kg/m . Gravid abdomen, Respirations not labored. Well oriented time place person, normal gait MEDICAL DECISION MAKING DISCUSSION: We first started discussing the pathophysiology of metabolic syndrome and gestational diabetes and how it affects her care. We informed the patient that gestational diabetes is a state of carbohydrate intolerance with subsequently insulin resistance and hyperglycemia. This is a malfunction or dysfunction of glucose sensors in the liver [...] was explained that this includes development of macrosomia and excess fat deposits in the fetus as a result of excess insulin released from thefetal pancreas. In addition to that, she was also explained regarding relative oxygen deficiency resulting in polycythemia. This can result in sludging in small capillaries which if it occurs in critical areas like brain can result in seizures. We also explained regarding the risk of developing hyperbilirubinemia as a result of rapid destruction of excess red blood cells after the has been delivered. We reviewed with her the strategy for improving and outcome should be to achieve euglycemic state. We explained to the patient that she will need to maintain close contact with or [...] checking blood glucose and remote evaluation through M office until delivery. 5. Discontinue blood glucose [...] patient is in complete care of her gifts officer. Patient does have ultrasound video visit scheduled with us. Thank you for allowing me to participate in Driss Gama . If there any questions please do not hesitate to contact us. Sincerely, MINE DENISE MD Patient instructed on insulin administration: when to take prescribed dose in relation to daily schedule, use of the insulin pen, how to give injection into the sub-Q tissue in relation to the gravid abdomen, rotation of injection sites, proper disposal of sharps and symptoms of hypoglycemia. Patient education materials given: insulin action chart, hypoglycemia management, proper disposal of sharps and procedure guide sheet for use of insulin pen. Patient returned demonstration. Questions answered. Encouraged to call office with questions or concerns. [facility] History of Present illness Narrative Reason for Appointment: Patient ID: Driss Gama is a 30 y.o. female who presents for Routine Visit Patient presents today for Return OB appointment. MEDICATIONS Current Outpatient Medications Medication Instructions Alcohol Swabs (Alcohol Prep Pad) 70 % pads 1 Pad, Topical, Daily, Use four times daily to check FSBS. Blood Glucose Monitoring Suppl ([employer] Solar Glucometer) w/Device kit 1 kit, Does not apply, Daily, Use four times daily to check FSBS. In the morning prior to breakfast & 1 hour after each meal for a total of 4times daily. etdnyfgunm-ejcegld-iwxailyh (Fiorinal) 50-325-40 MG capsule 1 capsule, Oral, [...] History: Procedure Laterality Date APPENDECTOMY 05/2016 at [facility] 12/2022 retained placenta DISTAL [...] nursing note reviewed. Exam conducted with a publicity expert present. Vitals: Estimated body mass index is 29.41 kg/m as calculated from the following: Height as of 07/30/25: 5' 2 . Weight as of this encounter: 160 lb 12.8 oz. BP: 170/90 Patient's last menstrual period was 02/21/2025. ASSESSMENT & PLAN ICD-10-CM 1. 27 weeks gestation of ([facility]) Z3A.27 POCT urinalysis dipstick manually resulted 2. Second trimester ([facility]) Z34.92 Documented by Marbella Keane NP on behalf of: Marbella Keane NP documented in this encounter [facility] 09-01-2025 Miscellaneous Notes Called pt to discuss her blood sugars. She has more than 20% of her blood sugars elevated and all her fastings are high. She stated she is doing an 8 hour fasting and a snack in the evening. Let her know that we recommend a medication start. Pt asked to be transferred to the [facility] to make that appt. documented in this encounter [facility] 09-01-2025 Telephone encounter Note Called pt to discuss her blood sugars. She has more than 20% of her blood sugars elevated and all her fastings are high. She stated she is doing an 8 hour fasting and a snack in the evening. Let her know that we recommend a medication start. Pt asked to be transferred to the [facility] to make that appt. [facility] 08-27-2025 History of Present illness Narrative Reason for Appointment: Patient ID: [...] San infection Headache History of menstrual cramps ([facility]) Varicella zoster Visual impairment HISTORY PAST MEDICAL HISTORY SOCIAL HISTORY Past Medical History: Diagnosis Date Amenorrhea d/t oral contraceptive pills Endometriosis John [facility] infection Headache History of menstrual cramps severe Hypertension ([facility]) x1 Varicella zoster unsure Visual impairment w/ [...] History: Procedure Laterality Date APPENDECTOMY 05/2016 at [facility] 12/2022 retained placenta DISTAL [...] nursing note reviewed. Exam conducted with a publicity expert present. Vitals: Estimated body mass index is 29.23 kg/m as calculated from the following: Height as of 07/30/25: 5' 2 . Weight as of this encounter: 159 lb 12.8 oz. BP: (!) 158/92 Patient's last menstrual period was 02/21/2025. ASSESSMENT & PLAN ICD-10-CM 1. 26 weeks gestation of ([facility]) Z3A.26 POCT urinalysis dipstick manually resulted 2. Second trimester ([facility]) Z34.92 Return OB: Patient presents today for [...] labs and have her evaluated today at [facility] OB. I discussed with OB today and they are aware that patient is coming to be evaluated. Orders Placed This Encounter Procedures POCT urinalysis dipstick manually resulted Follow Up: Patient is to return to office in 2 week for routine OB appointment. Documented by Marbella Keane NP on behalf of: Marbella Keane NP documented in this encounter [facility] 08-24-2025 Group counseling note Patient: Driss Gama [...] Face to face time was 80 minutes. [facility] Work Phone: 08-24-2025 Miscellaneous Notes Patient: Driss [...] was 80 minutes. documented in this encounter [facility] 08-12-2025 History of Present illness Narrative Reason for Appointment: Patient ID: [...] History: Procedure Laterality Date APPENDECTOMY 05/2016 at [facility] 12/2022 retained placenta DISTAL [...] nursing note reviewed. Exam conducted with a publicity expert present. Vitals: Estimated body mass index is 27.82 kg/m as calculated from the following: Height as of 07/30/25: 5' 2 . Weight as of this encounter: 152 lb 1.9 oz. BP: 138/82 Patient's last menstrual period was 02/21/2025. ASSESSMENT & PLAN ICD-10-CM 1. 24 weeks gestation of ([facility]) Z3A.24 POCT urinalysis dipstick manually resulted 2. Second trimester ([facility]) Z34.92 POCT urinalysis dipstick manually [...] on Labetalol 100mg BID. Will refer to [facility] for evaluation. Patient denies any Headache or blurred vision. Documented by Marbella Keane NP on behalf of: Nathan Pop DO documented in this encounter [facility] 07-30-2025 History of Present illness Narrative Associated Problem(s): Hypertension Record Blood [...] infection Headache History of menstrual cramps Hypertension ([facility]) Varicella zoster Visual impairment Objective ?Quick Links [...] Lipid panel; Future documented in this encounter [facility] 07-15-2025 History of Present illness Narrative Reason for Appointment: Patient ID: [...] San infection Headache History of menstrual cramps ([facility]) Varicella zoster Visual impairment HISTORY PAST MEDICAL HISTORY SOCIAL HISTORY Past Medical History: Diagnosis Date Amenorrhea d/t oral contraceptive pills Endometriosis John [facility] infection Headache History of menstrual cramps severe Hypertension ([facility]) x1 Varicella zoster unsure Visual impairment w/ [...] History: Procedure Laterality Date APPENDECTOMY 05/2016 at [facility] 12/2022 retained placenta DISTAL CLAVICLE EXCISION Right 07/2018 Shoulder - open - DAP LAPAROSCOPY DIAGNOSTIC / BIOPSY / ASPIRATION / LYSIS 02/2019 endometriosis, 2019 LAPAROSCOPY DIAGNOSTIC / BIOPSY / ASPIRATION / [...] nursing note reviewed. Exam conducted with a publicity expert present. Vitals: Estimated body mass index is 26.48 kg/m as calculated from the following: Height as of 12/30/24: 5' 2 . Weight as of this encounter: 144 lb 12.8 oz. BP: 120/80 Patient's last menstrual period was 02/21/2025. ASSESSMENT & PLAN ICD-10-CM 1. 20 weeks gestation of ([facility]) Z3A.20 POCT urinalysis dipstick manually resulted 2. Second trimester ([facility]) Z34.92 POCT urinalysis dipstick manually resulted 3. [...] Nathan Pop DO documented in this encounter [facility] 06-22-2025 History of Present illness Narrative Reason for Appointment: Patient ID: [...] History: Procedure Laterality Date APPENDECTOMY 05/2016 at [facility] 12/2022 retained placenta DISTAL [...] nursing note reviewed. Exam conducted with a publicity expert present. Vitals: Estimated body mass index is 26.73 kg/m as calculated from the following: Height as of 12/30/24: 5' 2 . Weight as of this encounter: 146 lb 1.9 oz. BP: 118/74 Patient's last menstrual period was 02/21/2025. ASSESSMENT & PLAN (Z34.92) Second trimester ([facility]) Plan: POCT urinalysis dipstick manually resulted, Alpha fetoprotein, maternal, Alpha fetoprotein, maternal (Z3A.17) 17 weeks gestation of ([facility]) Plan: POCT urinalysis dipstick manually resulted, Alpha fetoprotein, maternal, Alpha fetoprotein, maternal (Z36.89) Screening, , for anatomic survey ([facility]) Plan: US OB 14+ weeks anatomy scan [...] Nathan Pop DO documented in this encounter [facility] 05-25-2025 History of Present illness Narrative Reason for Appointment: Patient ID: [...] Headache History of menstrual cramps severe Hypertension ([facility]) x1 Varicella zoster unsure Visual impairment w/ [...] History: Procedure Laterality Date APPENDECTOMY 05/2016 at [facility] 12/2022 retained placenta DISTAL [...] nursing note reviewed. Exam conducted with a publicity expert present. Vitals: Estimated body mass index is 25.24 kg/m as calculated from the following: Height as of 12/30/24: 5' 2 . Weight as of this encounter: 138 lb. BP: 122/80 Patient's last menstrual period was 02/21/2025. ASSESSMENT & PLAN ICD-10-CM 1. Second trimester ([facility]) Z34.92 POCT urinalysis dipstick manually resulted 2. 13 weeks gestation of ([facility]) Z3A.13 Return OB: Patient presents today for [...] Nathan Pop DO documented in this encounter [facility] 05-01-2025 History of Present illness Narrative Reason for Appointment: Patient ID: [...] History: Procedure Laterality Date APPENDECTOMY 05/2016 at [facility] 12/2022 retained placenta DISTAL [...] or undercooked meat, and stay away from [facility]. Patient has also been advised to [...] Hina Go LPN documented in this encounter [facility] 01-19-2025 History of Present illness Narrative Reason for Appointment: Patient ID: Driss Gama is a 29 y.o. female who presents for Painful [place] Patient presents today for Consult appointment. MEDICATIONS Current Outpatient Medications Medication Instructions vlwqnhvosc-ghocwsubjdyaq-aucurdzz 50-325-40 MG tablet 1 tablet, Oral, Every [...] 03/29/2023 Gastroparesis 03/29/2023 Hypertension ([facility]) 03/29/2023 Intractable migraine without aura [...] History: Procedure Laterality Date APPENDECTOMY 05/2016 at [facility] 12/2022 retained placenta DISTAL [...] nursing note reviewed. Exam conducted with a publicity expert present. Vitals: Estimated body mass index is [...] patient and patient given direct extension to Track Oiler for any questions/concerns pertaining to fertility. Documented by Christa Yanes LPN on behalf of: Nathan Pop DO documented in this encounter [facility] 12-30-2024 History of Present illness Narrative Images from the original note [...] History: Procedure Laterality Date APPENDECTOMY 05/2016 at [facility] 12/2022 retained placenta DISTAL CLAVICLE EXCISION Right 07/2018 Shoulder - open - DAP LAPAROSCOPY DIAGNOSTIC / BIOPSY / ASPIRATION / LYSIS 02/2019 endometriosis, 2020 LAPAROSCOPY DIAGNOSTIC / BIOPSY / ASPIRATION / LYSIS 02/29/2024 SHOULDER SURGERY Right open distal clavicle excision-DAP VAGINAL DELIVERY 11/2022 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 Current Outpatient Medications: nqrjyvchwa-jxroisrjgqgev-gjjnlbpf 50-325-40 MG tablet, Take 1 tablet by mouth every 6 (six) hours if needed for headaches, Disp: 20 tablet, Rfl: 0 desogestrel-ethinyl estradiol (Apri) 0.15-30 MG-MCG tablet, Take 1 tablet by mouth Daily, Disp: 21 tablet, Rfl: 12 metoprolol succinate XL (Toprol-XL) 25 MG 24 hr tablet, Take 1 tablet by mouth daily, Disp: 90 tablet, Rfl: 1 documented in this encounter [facility] 08-18-2024 History of Present illness Narrative Reason for Appointment: Patient ID: Driss Cope is a 29 y.o. female who presents for Well Women Visit Patient presents today for Annual Exam. MEDICATIONS Current Outpatient Medications Medication Instructions kkmyagjmws-hisxwmxuldosj-aocgilyr 50-325-40 MG tablet 1 tablet, Oral, Every [...] History: Procedure Laterality Date APPENDECTOMY 05/2016 at [facility] 12/2022 retained placenta DISTAL [...] nursing note reviewed. Exam conducted with a publicity expert present. Vitals: Estimated body mass index is [...] Zenobia Gutierrez PA-C documented in this encounter [facility] 07-22-2024 History of Present illness Narrative Reason for Appointment: Patient ID: Driss Cope is a 29 y.o. female who presents for Dysmenorrhea Patient presents today for Acute Visit. MEDICATIONS Current Outpatient Medications Medication Instructions ecmhkcpfxn-mqzcpjveawvgc-uurcrqkq 50-325-40 MG tablet 1 tablet, Oral, Every [...] swallowing 03/29/2023 Panic disorder ([facility]) 03/29/2023 Patellofemoral disorders, left knee 03/29/2023 Patellofemoral disorders, right knee 03/29/2023 Posterior calcaneal exostosis 03/29/2023 Scapular dyskinesis 03/29/2023 Scoliosis 03/29/2023 Seasonal allergic rhinitis due to pollen 03/29/2023 Tachycardia, paroxysmal ([facility]) 03/29/2023 Tension headache 03/29/2023 Vitamin [...] menstrual cramps severe Hypertension ([facility]) x1 Varicella zoster unsure Visual [...] History: Procedure Laterality Date APPENDECTOMY 05/2016 at [facility] 12/2022 retained placenta DISTAL [...] nursing note reviewed. Exam conducted with a publicity expert present. Vitals: Estimated body mass index is [...] Nathan Pop DO documented in this encounter [facility] 04-29-2024 Telephone encounter Note Received message from admin Anna Webb to cancel surgery and all appts as pt had services elsewhere [facility] 04-29-2024 Miscellaneous Notes Received message from admin Anna Webb to cancel surgery and all appts as pt had services elsewhere documented in this encounter [facility] 04-25-2024 Telephone encounter Note Pt got in sooner for surgery with her local parking enforcement officer. Please cancel surgery and all pre and post op appts. [facility] 04-25-2024 Miscellaneous Notes Pt got in sooner for surgery with her local parking enforcement officer. Please cancel surgery and all pre and post op appts. documented in this encounter [facility] 01-10-2024 History of Present illness Narrative Reason for Appointment: Patient ID: [...] History: Procedure Laterality Date APPENDECTOMY 05/2016 at [facility] 12/2022 retained placenta DISTAL [...] nursing note reviewed. Exam conducted with a publicity expert present. Vitals: Estimated body mass index is [...] Nathan Pop DO documented in this encounter [facility] 01-03-2024 Miscellaneous Notes Refill(s) request: Requested Prescriptions [...] mg tablet Class: Normal Route: ORAL Order: [id number] E-Prescribing Status: Receipt confirmed by pharmacy (05/17/2023 [...] that may recur and often requires a local company intermodal truck driver treatment plan. Once endometriosis is identified, there [...] Department Center 05/20/2024 10:00 AM Kevin Pires Managing Supervisor [facility] 10:30 AM Charlene Rodriguez DO [facility] Appointment scheduled: As listed above Action taken: Refill request routed to clinician Pippa Simon RN January 03, 2024 4:29 PM Patient: Driss Cope : 1995 Provider: Charlene Rodriguez DO Caller Phone #: [phone] (home) [phone] (cell) Reason for call: b/c refill Message routed to nurse triage Date of next visit: MEGAN: 12/10/2023 documented in this encounter [facility] 12-10-2023 Note HNO ID: [id number] Author: CHARLENE RODRIGUEZ DO Service: ? Author Type: Physician Type: Progress Notes Filed: 12/10/2023 15:14 Note Text: [facility] SECTION FOR MINIMALLY INVASIVE GYNECOLOGIC SURGERY OUTPATIENT VISIT DATE 12/10/2023 OUTPATIENT VISIT TYPE Follow-up visit PRIMARY CARE PHYSICIAN: Cruz Rodríguez [address] [place] [address] REFERRING PHYSICIAN: Self CHIEF COMPLAINT: No chief [...] MRI: no evidence of Past Gynecologic History: Managing Supervisor History LMP: 07/08/2023 (Exact Date), Having periods Age at Menarche: 14 Age at First : 27 Age at Menopause: Managing Supervisor History Comments: Sexual Activity: Never; No [...] today with pelvic (more content not included)... [facility] 09-12-2023 Hospital Discharge instructions Patient Education 09/12/2023 18:18:13 How to [...] Follow these instructions at home: Medicines Take jgjz-uzw-mjpneiu and prescription medicines only as told by [...] buy a blood pressure monitor at most [employer] or online. Where to find more information [place] [employer]: www.heart.org Contact a health care [...] provider. Document Revised: 07/27/2022 Document Reviewed: 07/27/2022 [employer] Patient Education 2022 [employer]. 09/12/2023 18:18:13 Hypertension, Adult, Spqp-fh-Hlut Hypertension, Adult Hypertension is another name for [...] doctor. Keep all follow-up visits. Medicines Take mtoj-djh-jzagjuq and prescription medicines only as told by [...] provider. Document Revised: 08/31/2022 Document Reviewed: 08/31/2022 [employer] Patient Education 2022 [employer] 09/12/2023 18:18:13 General Headache Without Cause, Kwrj-yt-Dqff General Headache Without Cause A headache is pain or discomfort you feel around the head or neck area. There are many causes and types of headaches. In some cases, the cause may not be found. Follow these instructions at home: Watch your condition for any changes. Let your doctor know about them. Take these steps to help with your condition: Managing pain Take hrep-pmt-bdzacgr and prescription medicines only as told by [...] provider. Document Revised: 04/12/2022 Document Reviewed: 04/12/2022 [employer] Patient Education 2022 [employer]. Follow Up Care 09/12/2023 17:21:57 With:CRUZ RODRÍGUEZ Address: [address] [place] [address] [place] [address]- Business (1) When:09/15/2023 18:03:37 Comments:Follow-up with your primary care provider in 3 to 5 days. If symptoms worsen, do not improve, or new symptoms arise please report back to emergency department for further evaluation. [facility] 09-12-2023 Evaluation + Plan note Extrac tank [...] date 09/12/23 18:02:00 EDT, 09/12/23 18:02:00 EDT [facility]10-16-2023 Instructions* Patient Instructions* Srinivasa Downs APRN.CNP - 09/10/2023 9:52 AM EDT Plan: Trial baclofen suppositories - can switch to pill vaginally if suppositories are not affordable Consider Pelvic floor physical therapy - can find local provider [email or web address] Consider going back to see Dr Kuldip Downs APRN.CNP [facility]23 NoteHNO ID: [id number] Author: Charlene Rodriguez DO Service: ? Author Type: Physician Type: Progress Notes Filed: 08/30/2023 11:15 AM Note Text: Tramadol rx sent to pharmacy.[facility]10-05-2023 History of Present illness Narrative* Charlene Rodriguez DO - 08/30/2023 11:13 AM EDT Tramadol rx sent to pharmacy. [facility] Miscellaneous Notes* Telephone Encounter - Chelsie Dueñas RN - 08/30/2023 10:50 AM EDT Last office visit: 08/24/2023 Assessment and Plan No diagnosis found. Trial baclofen suppositories Will send list of PTs Consider going back to K[facility]ip SIGNATURE: Srinivasa Downs APRN.MARKETING PROGRAM MANAGER Office visit with Dr. Rodriguez 07/16/2023 IMPRESSION: [...] plan. Charlene Rodriguez DO [facility]23 NoteHNO ID: [id number] Author: Srinivasa Downs APRN.ANA LAURA Service: ? Author Type: Nurse Practitioner Type: Progress Notes Filed: 09/10/2023 9:53 AM Note Text: [facility] Department of Benign Gynecology [facility] PATIENT NAME: Driss Cope DATE: 08/24/2023 Patient Name and verified: Yes Patient Location: [place] This Virtual Visit was completed using My Chart Zoom platform. I have communicated my name and active licensure. The patient's identity and physical location were verified at the time of this visit. Either the patient or their legal hotel services sales representative has been informed of the [...] appointment yet. GI - constipation is improved [place] - hasn't tried due to pain and [...] physical therapy - or can go locally Cimetrix Trial flexeril at bedtime Can consider Baclofen suppositories Continue Norethindrone - can take up to 3 months for it to stop periods, take at same time every day Relaxation techniques Srinivasa Downs APRN.MARKETING PROGRAM MANAGER OB History T0 L1 SAB0 IAB0 Ectopic0 Multiple0 Live Births0 Managing Supervisor History LMP: 07/08/2023 (Exact Date), Having periods Age at Menarche: 14 Age at First : 27 Age at Menopause: Managing Supervisor History Comments: Sexual Activity: Never; No [...] toxic appearing HEENT nor (more content not included)...[facility]09-29-2023 History of Present illness Narrative* Srinivasa Downs APRN.ANA LAURA - 08/24/2023 9:24 AM EDT Images from the original note were not included. [facility] Department of Benign Gynecology [facility] PATIENT NAME: Driss Cope DATE: 08/24/2023 Patient Name and verified: Yes Patient Location: [place] This Virtual Visit was completed using My Chart Zoom platform. I have communicated my name and active licensure. The patient's identity and physical location wereverified at the time of this visit. Either the patient or their legal hotel services sales representative has been informed of the [...] appointment yet. GI - constipation is improved [place] - hasn't tried due to pain and [...] physical therapy - or can go locally pelvicNanameue Trial flexeril at bedtime Can consider Baclofen suppositories Continue Norethindrone - can take up to 3 months for it to stop periods, take at same time every day Relaxation techniques Srinivasa Downs, JAMI.MARKETING PROGRAM MANAGER OB History T0 L1 SAB0 IAB0 Ectopic0 Multiple0 Live Births0 Managing Supervisor History LMP: 07/08/2023 (Exact Date), Having periods Age at Menarche: 14 Age at First : 27 Age at Menopause: Managing Supervisor History Comments: Sexual Activity: Never; No [...] Level: 3 - Low documented in this [facility] Miscellaneous Notes* Telephone Encounter - Marilee Valdez APRN.CNP - 08/17/2023 3:17 PM EDT Recommend sooner appt with Kuldip if available vs appt with Srinivasa Downs CNP with CPP team in addition to keeping her scheduled follow up with DR. Rodriguez. Mrailee Valdez APRN.CNP August 17, 2023 3:18 PM [...] Provider: Charlene Rodriguez DO Caller Phone #: [phone] (home) [phone] (cell) Reason for call: pt calling regarding mc message., still in pain. Please call [phone] Message routed to nurse triage Date of next visit: documented in this encounter[facility] Miscellaneous Notes* Telephone Encounter - Christa Suárez RN - 08/02/2023 11:29 AM EDT PA for orilissa completed via Cover MyMeds. Driss Cope (Morales: [id number]) - [id number] Orilissa 150MG tablets Status: Sent To Plan [...] too. Please advise. Thanks. documented in this encounterHol[facility]-2023 NoteHNO ID: [id number] Author: Charlene Rodriguez, DO Service: ? Author Type: Physician Type: Progress Notes Filed: 07/16/2023 12:41 PM Note Text: [facility] SECTION FOR MINIMALLY INVASIVE GYNECOLOGIC SURGERY OUTPATIENT VISIT DATE 07/16/2023 OUTPATIENT VISIT TYPE Follow-up visit PRIMARY CARE PHYSICIAN: Cruz Rodríguez [address] [place] [address] REFERRING PHYSICIAN: Cruz Rodríguez CHIEF COMPLAINT: No [...] additional bowel lesions identified Past Gynecologic History: Managing Supervisor History LMP: 07/08/2023 (Exact Date), Having periods Age at Menarche: 14 Age at First : 27 Age at Menopause: Managing Supervisor History Comments: Sexual Activity: Never; No [...] Signs: 07/16/23 1115 BP: (more content not included)...[facility]07-18-2023 History of Present illness Narrative* Boo Singh [...] 12, 2023 4:32 PM documented in this encounterHol[facility]07-[facility]-2023 NoteHNO ID: [id number] Author: Rosio Malcolm RT(R) Service: ? Author Type: Poultry Offal Icer Type: Progress Notes Filed: 06/12/2023 4:32 PM [...] BY: RT Claudia(Bryant) June 12, 2023 4:32 PMCTri[facility]23 NoteHNO ID: [id number] Author: Boo Singh RN Service: Nursing Author [...] Cope DATE: June 12, 2023 TIME: 1:43 [facility]06-22-2023 NoteHNO ID: [id number] Author: Charlene Rodriguez, DO Service: ? Author Type: Physician Type: Progress Notes Filed: 05/21/2023 10:15 AM Note Text: [facility] SECTION FOR MINIMALLY INVASIVE GYNECOLOGIC SURGERY OUTPATIENT [...] to appointment last week Past Gynecologic History: Managing Supervisor History LMP: 04/22/2023 (Exact Date), Having periods Age at Menarche: 14 Age at First : 27 Age at Menopause: Managing Supervisor History Comments: Sexual Activity: Never; No [...] treatment plan. Charlene Rodriguez DO Tt: 20 minutesKind[facility]23 History of Present illness Narrative* Charlene Rodriguez DO - 05/17/2023 1:05 PM EDT Images from the original note were not included. [facility] SECTION FOR MINIMALLY INVASIVE GYNECOLOGIC SURGERY OUTPATIENT [...] to appointment last week Past Gynecologic History: Managing Supervisor History LMP: 04/22/2023 (Exact Date), Having periods Age at Menarche: 14 Age at First : 27 Age at Menopause: Managing Supervisor History Comments: Sexual Activity: Never; No [...] DO Tt: 20 minutes documented in this encounterHol[facility]06-[facility]-2023 Miscellaneous Notes* Telephone Encounter - Christa Suárez RN - 05/11/2023 4:19 PM EDT Reports vaginal bleeding, using panty liners, changing a few times a day, not severe. Biggest complaint is cramping. Has had 3 periods of bleeding recently - 04/22/2023 LMP, last a few days, 05/04-05/10 bleeding again 05/11/2023 started again today. Takes aygestin 5mg daily. She did not pick remover flexeril. Encourage to pick remover the flexeril as this will help with the cramping. Reviewed red flag bleeding symptoms that require trip to ER (soaking greater than one overnight padper hour, chest pain, shortness of breath, fatigue, palpitations).. Advised keep appt. Gives verbal understanding. Appointments for Next 60 Days Date Time Provider Location Dept Phone 05/17/2023 1:00 PM CHARLENE RODRIGUEZ [facility] [place] [phone] Christa Suárez RN * Telephone Encounter - Tawana Barragan - 05/11/2023 1:19 PM EDT Reason for call: other - Vaginal bleeding Provider name: Dr Rodriguez Additional comments: patient having more vaginal bleeding and concerned she is getting worse. Recommendation: routed to nurse triage pool documented in this encounterHol[facility]23 Instructions* Patient Instructions* Srinivasa Downs APRN.CNP - 05/01/2023 11:47 AM EDT Plan Pelvic floor physical therapy - or can go locally pelvicTier 3.Symwave Trial flexeril at bedtime Can consider Baclofen suppositories - let me know if you want to trial after you go to PT Continue Norethindrone - can take up to 3 months for it to stop periods, take at same time every day Relaxation techniques Srinivasa Downs APRN.CNP Relaxation techniques for pain flares: Heating pads [...] pelvic pain society ([email or web address].org) documented in this encounterHol[facility] History of Present illness Narrative* Srinivasa Downs APRN.ANA LAURA - 05/01/2023 10:30 AM EDT Driss Cope is a 28 year old female who presents for problem visit for pain HPI: Pain is week before period and week of period. Worse on her period for every day she's bleeding Urinary - No symptoms GI - Always constipated. No meds [place] - painful always Pain is on left [...] L0 SAB0 IAB0 Ectopic0 Multiple0 Live Births0 Managing Supervisor History LMP: 03/26/2023 (Approximate), Having periods Age at Menarche: Age at First : Age at Menopause: Managing Supervisor History Comments: Sexual Activity: Never; No [...] physical therapy - or can go locally pelvicrehabTRAN.SL Trial flexeril at bedtime Can consider Baclofen [...] Level: 4 - Moderate documented in this encounterHolzer [facility]06-06-2023 NoteHNO ID: [id number] Author: Srinivasa Downs APRN.CNP Service: ? Author Type: Nurse Practitioner Type: Progress Notes Filed: 05/09/2023 11:46 AM Note Text: Driss Cope is a 28 year old female who presents for problem visit for pain HPI: Pain is week before period and week of period. Worse on her period for every day she's bleeding Urinary - No symptoms GI - Always constipated. No meds [place] - painful always Pain is on left [...] L0 SAB0 IAB0 Ectopic0 Multiple0 Live Births0 Managing Supervisor History LMP: 03/26/2023 (Approximate), Having periods Age at Menarche: Age at First : Age at Menopause: Managing Supervisor History Comments: Sexual Activity: Never; No [...] physical therapy - or can go locally pelvicrehabTRAN.SL Trial flexeril at bedtime Can consider Baclofen [...] management Medical Decision Making Level: 4 - [facility]erate[facility] Miscellaneous Notes* Telephone Encounter - Marilee Valdez [...] not heat too hot for risk of agines and/or temporary or permanent skin changes. Marilee [...] months. Lucila Foss RN [facility] Discharge instructions Patient Education 01/31/2023 18:59:59 [...] told by your health care provider. Take ebev-tjo-fnpjdqf and prescription medicines only as told by [...] 01/03/2007 Document Revised: 10/25/2018 Document Reviewed: 01/25/2018 [employer] Patient Education 2020 [employer]. Follow Up Care 01/31/2023 13:43:01 With:Cruz Meza Address:Unknown When:02/03/2023 18:59:31 Comments:Follow-up for evaluation of hypertension in context of known preeclampsia in the period With:CRUZ RODRÍGUEZ Address: [address] [place] [address]- Business (1) When:Within 3 Day(s) [facility]03-08-2023 Evaluation + Plan noteExtracted from: Title:ED Note Author:Mayur Mabry PA-C e:01/31/23 Flank pain (R10.9: Unspecifi ed abdominal pain) Headache (R51.9: Headache, unspecified) Orders: CTA Chest Hepatic Function Panel [facility]02-04-2023 Hospital Discharge instructions Patient Education 12/30/2022 13:59:51 CHECK PILOT - Post D&C, Hysteroscopy, LEEP or Essure/Laparoscopy [...] Instructions - FT (Custom) (Custom) 12/30/2022 13:55:16 CHECK PILOT - Post D&C, Hysteroscopy, LEEP or Essure/Laparoscopy [...] With:Cruz Meza Address: [address], [place] [address] [place] [address]- Business (1) When: Unknown Comments:follow up in 1-2 weeks With:CRUZ RODRÍGUEZ Address: [address] [place] [address]- Business (1) When:01/02/2023 09:21:18 [facility]02-04-2023 Evaluation + Plan noteExtracted from: Title:ANES Post-operative [...] Extracted from: Title:ANES Pre-operative Note Author:Vamsi BLACKWELL, R aric S. Date:12/30/22 Plan [place] [employer] Anesthesiologists (ASA) physical status classification: Class II, E. Anesthetic Preoperative Plan: Anesthesia General. Extracted from: Title:ED Note Author:Lara Murphy, Edin Friend Da te:12/30/22 1. Retained products of conc eption with hemorrhage (O72.2: Delayed and secondary hemorrhage) Orders: ABO/Rh ABO/Rh History Check Antibody Screen Automated Diff Basic Metabolic Panel Blood Bank ID# CBC w/ Auto Diff eGFR Extra SST Tube PT & PTT Saline Lock Insert UA With Cult Reflex US Pelvis Non-OB Complete [facility]01-10-2023 History of Present illness Narrative* Tory Pimentel [...] Ross MD - 12/05/2022 3:19 PM EST [facility]: This patient was seen in the [facility] by the resident. I reviewed and agree with the care provided by the resident during or immediately following the visit including the patient's medical history, the resident's finding in the physical exam, patient's diagnosis and treatment plan. documented in this [facility]01-07-2023 NoteDepartment of Obstetrics and Gynecology Delivery Discharge Summary Admission on 11/28/2022 12:24 AM Hospital course: Driss Cope at 35w1d admitted as a transfer from [facility] for [facility]. She was started on Magnesium there [...] Information for the patient's : Francie Cope [[id number]] female 2425 g (5 lb 5.5 oz) Apgars: Information for the patient's : Francie Cope [[id number]] : : Girl Blood Type/Rh: O Antibody [...] Your Medications These medications were sent to [facility] [address] [place] [address] Hours: Sunday to Sunday 10 am to 6 pm docusate sodium 100 MG capsule ibuprofen 600 MG tablet NIFEdipine XL 30 MG 24 hr tablet Activity: Activity as tolerated Diet: Regular diet Follow-up Appointments: - visit - Blood pressure check If a patient meets criteria for hypertension, make sure the following are done prior to discharge: [] Order a blood pressure kit through [facility] (or the patient's own pharmacy on the weekend) [] Order the blood pressure log through [employer] [x] Place an office visit or telephone [...] notify her physician if any of these occur.[facility] [id number] History of Present illness Narrative* Anna Booth [...] with more than 50% of the total huyi-jb-ebmd time of the visit in counseling/coordination of [...] be monitored and followed by the diet information technology technician. CRISS Oshea * Alejandra Arcos RN [...] and reassuring. CCM. Cx:/70/-3 FHT: Cat 1 Rio:q3-4 min A/P: 1. IOL-PreEwSF. FHT 130 baseline, with moderate variability, Accelerations present Yes, and rare late deceleration . Cervical exam unchanged. Cytotec x4 placed at this time. Patient intermittently feeling contractions. BP mild range. Cx: 1-2/70/-3 FHP: defer FHT: Cat I Rio: a3-4min A/P: 1. IOL-PreEwSF: FHT Category I, [...] Cx: unchanged FHP: defer FHT: Cat I Rio: q4min A/P: 1. IOL-PreEwSF: FHT Category I, [...] 11/29/2022 6:17 AM Cx:1-2/60/-3 FHT: Cat I Rio:q4-5mins A/P: 1. IOL-PreEwSF: Cat I FHT with [...] per protocol. CCM. Cx:defer FHT: Cat I Rio:q4-6mins A/P: 1. IOL-PreEwSF: Cat I FHT with baseline 120, moderate variability, spontaneous accelerations, and no decelerations. BP normotensive to mild range since last note time. Pitocin @ 2 cc/hr, continue to titrate per protocol. Magnesium sulfate running for seizure prophylaxis, UOP 400 ml over past 4hours. CCM. Cx:defer FHT: Cat I Rio:q4-5mins A/P: 1. IOL-PreEwSF: Cat I FHT with baseline 135, moderate variability, spontaneous accelerations, and no decelerations. BP normotensive to mild range since last note time. Pitocin @ 6 cc/hr, continue to titrate per protocol. Magnesium sulfate running for seizure prophylaxis, UOP 600 ml over past 4hours. Will plan for AROM soon. CCM. Cx:defer FHT: Cat I Rio:irritability A/P: 1. IOL-PreEwSF: Pit @ 8 mu/min. Patient resting comfortably and only irritability tracing on toco. BP most recently mild range. On magnesium sulfate for seizure prophylaxis. UOP adequate. Continue magnesium and continue to titrate pitocin per protocol. Plan for AROM once patient rudi more regularly. Electronically signed by Cortney Velasquez DO 11/29/2022 4:21 PM Cx:/-3 FHT: Cat 1 Rio:Not tracing A/P: 1. IOL-PreEwSF. FHT 135 baseline, with moderate variability, Accelerations present Yes, and nodecelerations seen . AROM at this time for moderate amount blood tinged fluid. Pitocin at 8cc/hr. Maternal BP mild range. On Magnesium for Seizure prophylaxis. Patient with adequate urinary output. CCM. Cx: defer FHP: defer FHT: Cat II Rio: not tracing well A/P: 1. IOL-PreEwSF: FHT [...] per RN FHP: defer FHT: Cat II Rio: q4min A/P: 1. IOL-PreEwSF: FHT Category II [...] delivery note for details documented in this [facility]01-07-2023 Hospital course Narrative* César Tran DO - 12/02/2022 12:32 PM EST Images from the original note were not included. Department of Obstetrics and Gynecology Delivery Discharge Summary Admission on 11/28/2022 12:24 AM Hospital course: Driss Cope at 35w1d admitted as a transfer [facility] for PreEw[facility]. She was startedon Magnesium there and transported [...] Information for the patient's : Francie Cope [[id number]] female 2425 g (5 lb 5.5 oz) Apgars: Information for the patient's : Francie Cope [[id number]] : Infant: Girl Blood Type/Rh: O Antibody [...] Your Medications These medications were sent to [facility] [address] [place] [address] Hours: Sunday to Sunday 10 am to 6 pm docusate sodium 100 MG capsule ibuprofen 600 MG tablet NIFEdipine XL 30 MG 24 hr tablet Activity: Activity as tolerated Diet: Regular diet Follow-up Appointments: - visit - Blood pressure check If a patient meets criteria for hypertension, make sure the following are done prior to discharge: [] Order a blood pressure kit through [facility] (or the patient's own pharmacy on the weekend) [] Order the blood pressure log through [employer] [x] Place an office visit or telephone [...] any of these occur. documented in this [facility]01-06-2023 Note* Care Coordination - Christine Michelle [...] home. Denies any concerns at this time. [facility]01-06-2023 Note* Care Coordination - Christine Michelle RN [...] home. Denies any concerns at this time. [facility]01-06-2023 Miscellaneous Notes* Care Coordination - Christine Michelle [...] this pt. Due to: in [facility] Hospital breast pump, supplies kit, [...] to check with LC in [facility] for smaller flange sizes * L&D Delivery Note - Irina Kramer DO - 11/30/2022 4:04 AM EST Images from the original note were not included. Vaginal Delivery Note Department of Obstetrics and Gynecology Patient: Driss Cope : 1995 Date of delivery: 11/30/2022 Pre-operative Diagnosis: Driss Sidhu at 35w1d 1. <37 weeks 2. PreEwSF Post-operative Diagnosis: Live Born female Delivering Senior Information Systems Architect & Airplane Pilot Chief(s): Dr. Bowden; Dr. Kramer Infant Information: Information for the patient's : Francie Cope [[id number]] Information for the patient's : Francie Cope [[id number]] Description: normal Meconium Noted: No Anesthesia: epidural [...] Immunity Status: No results found for: RUBELLATAMMI KramerDO 11/30/2022, 4:04 AM Associated attestation - Carol Bowden MD - 12/01/2022 8:22 AM EST Procedures or Surgery: I was present for all morales elements of the procedure or surgery as described in the resident note. * Care Plan - Clotilde Mg RN - 11/29/2022 7:45 AM EST The patient will continue to make cervical change. Clotilde Mg RN documented in this [facility]01-06-2023 Obstetrics Note* Note - Ligia Bridges RN - 12/01/2022 9:00 AM EST 22.5mm flanges given to patient. Encouraged her to call for observation of pump session and smallerflanges. Martha in NICU to assist with personal pump. [facility] [id number] Hospital Discharge instructions* Discharge Instructions* Carol Bowden [...] as 8 weeks after delivery. Bleeding may pick remover and then decrease again around 7-10 days [...] of harming yourself or your infant. If will not stop crying, contact another adult for help or place in their crib on their back and [...] avoid constipation you may take a mild jwie-tvw-povmtyf stool softener (such as colace) as recommended [...] positive or a Person Under Investigation (PUI) Bkbzyw-ma-cpyqo transmission of COVID-19 during is unlikely, but after a baby is susceptible to fyrhir-hc-juipto spread. After your baby is born, your [...] clean your hands with an alcohol-based hand clinical lab specialist that contains at least 60% alcohol. Clean your hands often Wash your hands often with soap and water for at least 20 seconds, especially after blowing your nose, coughing, or sneezing; going to the bathroom; and before eating or preparing food. If soap and water are not readily available, use an alcohol-based hand clinical lab specialist with at least 60% alcohol, covering all [...] healthcare provider to call the local or critical access hospital health department. Persons who are placed [...] isolation precautions should be made on a lghc-iv-wxsl basis, in consultation with healthcare providers and critical access hospitaland local health departments. Information on COVID-19 [...] respiratory tract signs and symptoms. Ways to [place] with Anxiety & Stress It is normal [...] an illness that was first found in [facility], in October 2019. It has since [...] seen in people before. This virus spreads tcbsfe-ll-qbfnmn through droplets from coughing and sneezing. It [...] water aren't available, use an alcohol-based hand clinical lab specialist. Call 911 anytime you think you may [...] of: February 25, 2020 Content Version: 12.4 [employer]. Care instructions adapted under license by your healthcare professional. If you have questions about a medical condition or this instruction, always ask your healthcare professional. [employer] disclaims any warranty or liability for your use of this information. General Recommendations for Routine Cleaning and Disinfection of Households Community members can practice routine cleaning of frequently touched surfaces (for example: tables, doorknobs, light switches, handles, desks, toilets, faucets, sinks) with household care mgr and EPA-registered disinfectants that are appropriate for [...] appropriate. These supplies include tissues, paper towels, care mgr and EPA-registered disinfectants (see list link at [...] be used for other purposes. Consult the engineering technical analyst's instructions for cleaning and disinfection products used. [...] used if appropriate for the surface. Follow engineering technical analyst's instructions for application and proper ventilation. Check [...] water Products with EPA-approved emerging viral pathogens [facility] networkpdf iconexternal icon are expected to be effective against COVID-19 based on data for harder to kill viruses. Follow the engineering technical analyst's instructions for all cleaning and disinfection products (e.g., concentration, application method and contact time, etc.). Soft (porous) surfaces such as carpeted floor, rugs, and drapes Remove visible contamination if present and clean with appropriate care mgr indicated for use on these surfaces. After cleaning: Launder items as appropriate in accordance with the engineering technical analyst's instructions. If possible, launder items using the [...] items as appropriate in accordance with the engineering technical analyst's instructions. If possible, launder items using the warmest appropriate water setting for the items and dry items completely. Dirty laundry from an ill person can be washed with other people's items. Clean and disinfect clothes hampers according to guidance above for surfaces. If possible, considerplacing a baggage agent that is either disposable (can be thrown away) or can be laundered. CDC has a list of EPA approved cleaning products on their website - https://www.cdc.gov/coronavirus/ 2019-ncov/community/home/cleaning-disinfection.html https://www.Ponominalu.ru.Symwave/Fpbtn-Cdkqaivvvpb-Wiawpbor-Products-List.pdf Clickstcery Stores with delivery and pick remover services: [employer]: Free pick remover at locations Delivery is $12.95 a month Website - [employer] [place]: Pit Operator $2.95 (1st order is free) Delivery is $14.95 Website - [employer]: meter repair shop supervisor is free Delivery is $5.95 [employer]: meter repair shop supervisor is $4.95 Delivery is $9.95 Website [employer]: meter repair shop supervisor is $4.95 Delivery is $9.95 Website [employer] Market: Can be ordered for delivery and pick remover with [employer] Website - mobile melting [employer]: Free deliver for first 3 orders of $35 or more Website - [employer] Will deliver from [employer], [employer], [employer], and [employer]. Annual membership is $99 Monthly membership is $14 * Attachments The following attachments cannot be sent through Care Everywhere. * Preeclampsia Discharge Instructions (Irish) documented in this [facility]01-05-2023 Obstetrics Note* Note - Sheila Harrell RN - 11/30/2022 10:37 AM EST Swabs given to patient and educated how to use and to bring to CRISTIAN [facility] [id number] Obstetrics Note* Note - Sheila Harrell RN - 11/30/2022 10:30 AM EST Breast pump use indicated for this pt. Due to: infant in [facility] Hospital breast pump, supplies kit, [...] patient to check with in [facility] for smaller flange sizes [facility] [id number] NotePatient: Driss Cope Procedure Summary Date: 11/29/22 [...] discharged once all PACU criteria has been met.[facility]01-05-2023 NotePatient: Driss Cope Procedure Summary Date: 11/29/22 [...] Allowed opportunity for questions and acknowledgement of understanding.[facility]01-05-2023 Labor and delivery summary note* L&D Delivery Note - Irina Kramer DO - 11/30/2022 4:04 AM EST Images from the original note were not included. Vaginal Delivery Note Department of Obstetrics and Gynecology Patient: Driss Cope : 1995 Date of delivery: 11/30/2022 Pre-operative Diagnosis: Driss ElizondoP0 at 35w1d 1. <37 weeks 2. PreEwSF Post-operative Diagnosis: Live Born female Delivering Senior Information Systems Architect & Airplane Pilot Chief(s): Dr. Bowden; Dr. Kramer Infant Information: Information for the patient's : Francie Cope [[id number]] Information for the patient's : Francie Cope [[id number]] Description: normal Meconium Noted: No Anesthesia: epidural anesthesia Complications: None Application and Delivery: Driss ElizondoP0 at 35w1d admitted for IOL-PreEwSF. Her labor [...] for: RUBELLATAMMI Kramer DO 11/30/2022, 4:04 AM Associated attestation - Carol Bowden MD - 12/01/2022 8:22 AM EST Procedures or Surgery: I was present for all morales elements of the procedure or surgery as described in the resident note. [facility] [id number] NoteEpidural Block Time Out: 11/29/2022 6:17 PM Patient location during procedure: OB Start time: 11/29/2022 6:18 PM End time: 11/29/2022 6:45 PM Reason for block: labor analgesia Staffing Performed: SIGNALER Resident/SIGNALER: Jimmie Kaur APRN - SIGNALER Preanesthetic Checklist Completed: patient identified, IV checked, [...] patient tolerated procedure well with no immediate complicationsMcLaren [facility] Region01-04-2023 Plan of care note* Care Plan - Clotilde Mg RN - 11/29/2022 7:45 AM EST The patient will continue to make cervical change. Clotilde Mg RN [facility] [id number] NotePatient: Driss Cope Procedure Information Date: 11/28/22 [...] is not NPO Additional Equipment Requests[facility] [id number] NoteLabor Progress Note Date: 11/28/2022 Time: 2:14 [...] and reassuring. CCM. Cx:/-3 FHT: Cat 1 Rio:q3-4 min A/P: 1. IOL-PreEwSF. FHT 130 baseline, with moderate variability, Accelerations present Yes, and rare late deceleration . Cervical exam unchanged. Cytotec x4 placed at this time. Patient intermittently feeling contractions. BP mild range. Cx: 1-/-3 FHP: defer FHT: Cat I Rio: a3-4min A/P: 1. IOL-PreEwSF: FHT Category I, [...] Cx: unchanged FHP: defer FHT: Cat I Rio: q4min A/P: 1. IOL-PreEwSF: FHT Category I, [...] 11/29/2022 6:17 AM Cx:1-2/60/-3 FHT: Cat I Rio:q4-5mins A/P: 1. IOL-PreEwSF: Cat I FHT with [...] per protocol. CCM. Cx:defer FHT: Cat I Rio:q4-6mins A/P: 1. IOL-PreEwSF: Cat I FHT with baseline 120, moderate variability, spontaneous accelerations, and no decelerations. BP normotensive to mild range since last note time. Pitocin @ 2 cc/hr, continue to titrate per protocol. Magnesium sulfate running for seizure prophylaxis, UOP 400 ml over past 4 hours. CCM. Cx:defer FHT: Cat I Rio:q4-5mins A/P: 1. IOL-PreEwSF: Cat I FHT with baseline 135, moderate variability, spontaneous accelerations, and no decelerations. BP normotensive to mild range since last note time. Pitocin @ 6 cc/hr, continue to titrate per protocol. Magnesium sulfate running for seizure prophylaxis, UOP 600 ml over past 4 hours. Will plan for AROM soon. CCM. Cx:defer FHT: Cat I Rio:irritability A/P: 1. IOL-PreEwSF: Pit @ 8 mu/min. Patient resting comfortably and only irritability tracing on toco. BP most recently mild range. On magnesium sulfate for seizure prophylaxis. UOP adequate. Continue magnesium and continue to titrate pitocin per protocol. Plan for AROM once patient rudi more regularly. Electronically signed by Cortney Velasquez DO 11/29/2022 4:21 PM Cx:470/-3 FHT: Cat 1 Rio:Not tracing A/P: 1. IOL-PreEwSF. FHT 135 baseline, with moderate variability, Accelerations present Yes, and no decelerations seen . AROM at this time for moderate amount blood tinged fluid. Pitocin at 8cc/hr. Maternal BP mild range. On Magnesium for Seizure prophylaxis. Patient with adequate urinary output. CCM. Cx: defer FHP: defer FHT: Cat II Rio: not tracing well A/P: 1. IOL-PreEwSF: FHT Category II for brief period of lates vs early deceleration (more content not included)...[facility]01-03-2023 NoteObstetrical History and Physical CHIEF COMPLAINT: SUH [...] 34w6d Is this patient being delivered between 23d0n-83e6v weeks with an acceptable medical indication (obstetric, maternal, and/or )? NA: Not Applicable: This patient is being delivered outside of the PC-01 range (44s3h-17x8w) for reasons indicated in the medical record. [...] VTE Prophylaxis: Not Indicated (more content not included)...[facility]01-03-2023 History and physical note* Cassie Constantino MD [...] 34w6d Is this patient being delivered between 81i9u-88d1f weeks with an acceptable medical indication (obstetric, maternal, and/or )? NA: Not Applicable: This patient is being delivered outside of the PC-01 range (48g5r-92d0s) for reasons indicated in the medical record. [...] plan. Cassie Constantino MD 11/28/2022, 12:48 AM [facility] [id number] History and physical note* Cassie Constantino MD [...] 34w6d Is this patient being delivered between 42y1p-63r8s weeks with an acceptable medical indication (obstetric, maternal, and/or )? NA: Not Applicable: This patient is being delivered outside of the PC-01 range (21e6u-03b1e) for reasons indicated in the medical record. [...] MD 11/28/2022, 12:48 AM documented in this [facility]01-02-2023 Evaluation + Plan note Extracted from: Title:OB High Risk Antepartum Visit * Author:WINSOME PRESCOTT MD Fredi Date:11/27/22 Impression and Plan Diagnosis 34 weeks 5 days. Preeclampsia. contractions. Maternal tachycardia.. Course: Worsening, New onset headache may be a signal of worsening symptoms of preeclampsia.. Orders I discussed this case with the maternal- medicine department at [facility] in [facility], Dr. Thea Nieves, she accepted to transfer due to preeclampsia. Plan: Magnesium sulfate per protocol, betamethasone, transfer arrangements are in progress.. [facility]08-19-2022 Evaluation + Plan noteExtracted from: Title:ED Note [...] Colace and Proctofoam and follow-up with her CHECK PILOT physician in the outpatient setting. She is provided with a note for work. Additional diagnosis: Constipation, UTI and [facility]08-19-2022 Hospital Discharge instructions Follow Up Care 07/14/2022 06:07:36 With:Cruz Meza Address:Unknown When:07/17/2022 07:24:48 With:CRUZ RODRÍGUEZ Address: [address] [place] [address]- Business (1) When:Within 3 Day(s) [facility]08-19-2022 Hospital Discharge instructions Follow Up Care 07/14/2022 04:40:16 With:Cruz Meza Address: [address], [address] [place] [address]- Business (1) When:07/17/2022 Comments:Appointment has already been scheduledCall Dr if fever>100.5 F, heavy bleedingCall for any problems.Call for severe abdominal painCall physician for heavy vaginal bleedingCall physician if symptoms worsenPlease call if you need to rescheduleReturn for contractions closer, longer, harderReturn ifruptured membranes or vaginal bleeding [facility]05-31-2022 Evaluation + Plan note Diagnostic Tests Pending * Dadtu-9-Vgrrpycrswy 04/25/22 * NIGEL w/Reflex if POS 04/25/22 * Ceruloplasmin 04/25/22 * HCV Antibody RFX to Quant PCR 04/25/22 * HBV Core Ab 04/25/22 * Hepatitis B Surface Antibody 04/25/22 * Hepatitis B Surface Antigen 04/25/22 * Smooth Muscle Antibody Screen 04/25/22 [facility]05-24-2022 Evaluation note* Encounter Date Diagnosis Assessment Notes Treatment Notes Treatment Clinical Notes March, Elevated liver function tests (ICD-10 - R79.89) LABS INDICATED ABOVE FIBROSCAN [facility] Other Evaluation note* Diagnosis Pelvic pain in female- Primary Unspecified symptom associated with female genital organs [facility] Diagnosis Chronic pelvic pain in female- Primary Unspecified symptom associated with female genital organs Constipation, unspecified constipation type High-tone pelvic floor dysfunction Other specified disorders of female genital organs Diastasis of rectus abdominis Dysmenorrhea Other specified dyspareunia [facility] Diagnosis Endometriosis- Primary Endometriosis, site unspecified Pelvic and perineal pain Unspecified symptom associated with female genital organs [facility] Diagnosis Pelvic pain in female- Primary Unspecified symptom associated with female genital organs [facility] Diagnosis Pelvic pain in female- Primary Unspecified symptom associated with female genital organs [facility] Diagnosis High-tone pelvic floor dysfunction- Primary Other specified disorders of female genital organs Chronic pelvic pain in female Unspecified symptom associated with female genital organs [facility] Diagnosis Pelvic and perineal pain Unspecified symptom associated with female genital organs [facility] Diagnosis Menorrhagia with regular cycle Pelvic pain in female Unspecified symptom associated with female genital organs Uses control documented in this encounter [facility]* Diagnosis Preeclampsia, severe, third trimester- Primary Preeclampsia, severe, third trimester [facility] Diagnosis Pre-eclampsia, severe, delivered- Primary [facility] Diagnosis Dysmenorrhea, unspecified documented in this encounter [facility]* Diagnosis Well woman exam with routine gynecological exam Routine gynecological examination documented in this encounter [facility]* Diagnosis Hypertension, unspecified type (CMS/HCC)- Primary Paroxysmal tachycardia, unspecified (CMS/HCC) Paroxysmal tachycardia, unspecified Chronic right shoulder pain Pain in joint, shoulder region Scapular dyskinesis Lack of coordination [facility]* Diagnosis Pain in female genitalia on intercourse Dyspareunia Endometriosis Endometriosis, site unspecified documented [facility] noteNo assessment information availableOhio[facility] Work Phone: Evaluation note* Diagnosis Missed menses , unspecified gestational age Encounter for supervision of normal first in first trimester documented [facility]* Diagnosis Nonintractable episodic headache, unspecified headache type- Primary Second trimester ([facility]) state, incidental 13 weeks gestation of ([facility]) documented [facility]* Diagnosis Sinusitis, unspecified chronicity, unspecified location- Primary Second trimester ([facility]) state, incidental 17 weeks gestation of ([facility]) Screening, , for anatomic survey ([facility]) Encounter for anatomic survey documented in [facility] encounter [facility]* Diagnosis 20 weeks gestation of ([facility]) Second trimester ([facility]) state, incidental Diabetes mellitus screening Screening for diabetes mellitus documented in this [facility]* Diagnosis Wellness examination- Primary Hypertension, unspecified type Lipid screening Screening for lipoid disorders documented [facility]* Diagnosis Wellness examination- Primary Hypertension, unspecified type Lipid screening Screening for lipoid disorders 24 weeks gestation of ([facility]) Second trimester ([facility]) state, incidental Elevated glucose tolerance test Impaired glucose tolerance test documented in this encounter [facility]* Diagnosis Gestational diabetes mellitus (GDM) in second trimester, gestational diabetes method of control unspecified [facility] Diagnosis Wellness examination- Primary Hypertension, unspecified type Lipid screening Screening for lipoid disorders 26 weeks gestation of ([facility]) Second trimester ([facility]) state, incidental induced hypertension, antepartum ([facility]) Transient hypertension of , antepartum Gestational diabetes mellitus (GDM) in second trimester, gestational diabetes method of control unspecified ([facility]) documented in this encounter [facility]* Diagnosis Wellness examination- Primary Hypertension, unspecified type Lipid screening Screening for lipoid disorders Hypertension affecting , antepartum ([facility])- Primary 27 weeks gestation of ([facility]) Second trimester ([facility]) state, incidental documented in [facility]* Diagnosis Diet controlled gestational diabetes mellitus (GDM) in second trimester- Primary Essential hypertension affecting in third trimester documented in this encounter [facility] N[facility]ative - Reported* Type Description Date Medical History headache Surgical History appendectomy Surgical History shoulder surgery Surgical History endometriosis [facility] [employer] Other History of Present illness Narrative* 26 [...] engaged x 1 year * working at [employer] in [place] [address] Work Phone: Hospital course Narrative No data available for this section [facility] instructions No data available for this section [facility] IncInstructionsNot on filedocumented in this encounter [facility]InstructionsNot on filedocumented in this encounter [facility] SystemInstructionsNot on filedocumented in this encounter [facility] SystemInstructionsNot on filedocumented in this encounter [facility] SystemProgress note No data available for this section [facility], IncReason for visit NarrativePT HERE AT REQUEST OF DR RODRÍGUEZ FOR EVALUATION AND TREATMENT OF ELVATED LIVER FUNCTION- ( DR. SAMUEL PT), LABS FROM DR RODRÍGUEZ REVIEWED BY DR [facility]ERhar[facility] [employer] Other Summary Purpose Family History No Family [...] Bilateral ureterolysis Surgeon: Dr. 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 Fluids: 500 [...] to discuss pain related to endometriosis, declined publicity expert. 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 Reason for Referral Specialty Diagnoses / Procedures Referred By Michaela house Referred To Contact MR IMAGING Diagnoses Pelvic and perineal pain Procedures MRI FEMALE PELVIS WO/W IVCON MRI PELVIS W/O & W/CONTRAST MATERIAL Charlene Rodriguez, [address] [address] Mr Imaging Referral ID Status Reason Start Date Expiration Date Visits Requested Visits Authorized [id number] Authorized Auto-Generat ed Referral 05/17/2023 06/15/2024 1 1 Specialty Diagnoses / Procedures Referred By Contac t Referred To Contact [facility] Diagnoses Constipation, unspecified constipation type High-tone pelvic floor dysfunction Diastasis of rectus abdominis Dysmenorrhea Other specified dyspareunia Chronic pelvic pain in female Procedures CONSULT TO PHYSICAL THERAPY PHYSICAL THERAPY EVALUATION HIGH COMPLEX 45 MINS Srinivasa Downs APRN.MARKETING PROGRAM MANAGER [address] [place] [address] [facility] [address] [place] [address] Referral ID Status Reason Start Date Expiration Date Visits Requested Visits Authorized [id number] Pending Review Auto-Generat ed Referral 05/01/2023 04/30/2024 1 1 Chief Complaint and Reason for Visit Chief Complaint Admit Date N94.10 N80.9 February 02, 2025 3:1 6pm Additional Source Comments INFORMATION SOURCE (unrecogn ized section and content) DATE CREATED AUTHOR 10/26/2020 [facility] DATE CREATED AUTHOR AUTHOR'S ORGANIZ ATION 11/06/2020 [facility] DATE CREATED AUTHOR AUTHOR'S ORGANIZ ATION 12/17/2020 [facility] DATE CREATED AUTHOR AUTHOR'S ORGANIZ ATION 04/21/2021 [facility] DATE CREATED AUTHOR AUTHOR'S ORGANIZ ATION 06/05/2021 [facility] DATE CREATED AUTHOR AUTHOR'S ORGANIZ ATION 10/02/2021 Tonya Zarco spialan DATE CREATED AUTHOR AUTHOR'S ORGANIZ ATION 02/10/2022 [employer] DATE CREATED AUTHOR AUTHOR'S ORGANIZ ATION 12/05/2022 [facility] DATE CREATED AUTHOR AUTHOR'S ORGANIZ ATION 04/30/2024 [facility] DATE CREATED AUTHOR AUTHOR'S ORGANIZ ATION 02/09/2025 [facility] DATE CREATED AUTHOR AUTHOR'S ORGANIZ ATION 03/15/2025 [facility] DATE CREATED AUTHOR AUTHOR'S ORGANIZ ATION 08/03/2025 [facility] DATE CREATED AUTHOR AUTHOR'S ORGANIZ ATION 08/13/2025 [facility] DATE CREATED AUTHOR AUTHOR'S ORGANIZ ATION 08/16/2025 [facility] DATE CREATED AUTHOR AUTHOR'S ORGANIZ ATION 08/20/2025 [facility] DATE CREATED AUTHOR AUTHOR'S ORGANIZ ATION 08/21/2025 [facility] DATE CREATED AUTHOR AUTHOR'S ORGANIZ ATION 08/29/2025 [facility] DATE CREATED AUTHOR AUTHOR'S ORGANIZ ATION 08/30/2025 [facility] DATE CREATED AUTHOR AUTHOR'S ORGANIZ ATION 09/06/2025 [facility] Care Team (unrecognized sect ion and content) Perianesthesia Rn Relationship Specialty Start Date End Date Cruz Rodríguez MD [address] [place] [address] PCP - General Family Medicine 12/03/14 Perianesthesia Rn Relationship Specialty Start Date End Date Cruz Rodríguez MD [address] [place] [address] PCP - General Family Medicine 12/03/14 Perianesthesia Rn Relationship Specialty Start Date End Date Cruz Rodríguez MD [address] [place] [address] PCP - General Family Medicine 12/03/14 Perianesthesia Rn Relationship Specialty Start Date End Date Cruz Rodríguez MD [address] [place] [address] PCP - General Family Medicine 12/03/14 Perianesthesia Rn Relationship Specialty Start Date End Date Cruz Rodríguez MD [address] [place] [address] PCP - General Family Medicine 12/03/14 Perianesthesia Rn Relationship Specialty Start Date End Date Cruz Rodríguez MD [address] [place] [phone] PCP - General Family Medicine 12/03/14 Perianesthesia Rn Relationship Specialty Start Date End Date Cruz Rodríguez MD [address] [place] [phone] PCP - General Family Medicine 12/03/14 Perianesthesia Rn Relationship Specialty Start Date End Date Cruz Rodríguez MD [address] [place] [phone] PCP - General Family Medicine 12/03/14 Perianesthesia Rn Relationship Specialty Start Date End Date Cruz Rodríguez MD [address] [place] [address] PCP - General Family Medicine 12/03/14 Perianesthesia Rn Relationship Specialty Start Date End Date Cruz Rodríguez MD [address] [place] [address] PCP - General Family Medicine 12/03/14 Perianesthesia Rn Relationship Specialty Start Date End Date Cruz Rodríguez MD [address] [place] [address] PCP - [employer] 09/26/21 Cruz Rodríguez MD [address] [place] [address] PCP - General Family Medicine 04/10/23 Cruz Rodríguez MD [address] [place] [address] PCP - [facility] 02/24/23 [facility] [address] [place] [address] Nurse Practitioner Family Medicine 10/05/23 Trista Thao NP [address] [place] [address] Nurse Practitioner Pulmonary Disease 10/05/23 Perianesthesia Rn Relationship Specialty Start Date End Date Cruz Rodríguez MD [address] [place] [address] PCP - General Family Medicine 12/03/14 Perianesthesia Rn Relationship Specialty Start Date End Date Cruz Rodríguez MD [address] [place] [address] PCP - General Family Medicine 12/03/14 Perianesthesia Rn Relationship Specialty Start Date End Date Cruz Rodríguez MD [address] [place] [address] PCP - [facility] [employer] 09/26/21 Cruz Rodríguez MD [address] [place] [address] PCP - [facility] 02/24/23 Nay Beltran DO [address] [place] [address] PCP - General Family Medicine 02/14/24 Perianesthesia Rn Relationship Specialty Start Date End Date Cruz Rodríguez MD [address] [place] [address] PCP - [facility] [employer] 09/26/21 Cruz Rodríguez MD [address] [place] [address] PCP - [facility] 02/24/23 Nay Beltran DO [address] [place] [address] PCP - General Family Medicine 02/14/24 Perianesthesia Rn Relationship Specialty Start Date End Date Cruz Rodríguez MD [address] [place] [address] PCP - [facility] 09/26/21 Cruz Rodríguez MD [address] [place] [address] PCP - [facility] 02/24/23 Nay Beltran DO [address] [place] [address] PCP - General Family Medicine 02/14/24 Perianesthesia Rn Relationship Specialty Start Date End Date Cruz Rodríguez MD [address] [place] [address] PCP - [employer] 09/26/21 Cruz Rodríguez MD [address] [place] [address] PCP - [facility] 02/24/23 Nay Beltran DO [address] [place] [address] PCP - General Family Medicine 02/14/24 Perianesthesia Rn Relationship Specialty Start Date End Date Cruz Rodríguez MD [address] [place] [address] PCP - [facility] [employer] 09/26/21 Cruz Rodríguez MD [address] [place] [address] PCP - [facility] 02/24/23 Nay Beltran DO [address] [place] [address] PCP - General Family Medicine 02/14/24 Perianesthesia Rn Relationship Specialty Start Date End Date Cruz Rodríguez MD [address] [place] [address] PCP - [facility] [employer] 09/26/21 Nay Beltran DO [address] [place] [address] PCP - General Family Medicine 02/14/24 Perianesthesia Rn Relationship Specialty Start Date End Date Nay Beltran DO [address] [place] [address] PCP - General Family Medicine 02/14/24 Perianesthesia Rn Relationship Specialty Start Date End Date Nay Beltran DO [address] [place] [address] PCP - General Family Medicine 02/14/24 Team Status: Active Member Role Status Dates Cruz Rodríguez MD Primary Care Provider Active Team Status: Inactive Member Role Status Dates Cruz Rodríguez MD Primary Care Provider Active S tart: February 02, 2025 End: February 02, 2025 Nathan Pop DO Attending Provider Active Start : February 02, 2025 End: February 02, 2025 Perianesthesia Rn Relationship Specialty Start Date End Date Nay Beltran, DO [address] [place] [address] PCP - General Family Medicine 02/14/24 Nay Beltran, DO [address] [place] [address] PCP - [facility] [employer] 07/27/24 11/25/99 Perianesthesia Rn Relationship Specialty Start Date End Date Nay Beltran, DO [address] [place] [address] PCP - General Family Medicine 02/14/24 Nay Beltran DO [address] [place] [address] PCP - [facility] [employer] 07/27/24 11/25/99 Perianesthesia Rn Relationship Specialty Start Date End Date Nay Beltran, DO [address] [place] [address] PCP - General Family Medicine 02/14/24 Nay Beltran, DO [address] [place] [address] PCP - [facility] [employer] 07/27/24 11/25/99 Perianesthesia Rn Relationship Specialty Start Date End Date Nay Beltran, DO [address] [place] [address] PCP - General Family Medicine 02/14/24 Nay Beltran, DO [address] [place] [address] PCP - [facility] [employer] 07/27/24 11/25/99 Perianesthesia Rn Relationship Specialty Start Date End Date Nay Beltran, DO [address] [place] [address] PCP - General Family Medicine 02/14/24 Nay Beltran DO [address] [place] [address] PCP - [facility] [employer] 07/27/24 11/25/99 Perianesthesia Rn Relationship Specialty Start Date End Date Nay Beltran, DO [address] [place] [address] PCP - General Family Medicine 02/14/24 Nay Beltran DO [address] [place] [address] PCP - [facility] [employer] 07/27/24 11/25/99 Perianesthesia Rn Relationship Specialty Start Date End Date Nay Beltran, DO [address] [place] [address] PCP - General Family Medicine 02/14/24 Nay Beltran, DO [address] [place] [address] PCP - [facility] [employer] 07/27/24 11/25/99 Perianesthesia Rn Relationship Specialty Start Date End Date Nay Beltran, DO [address] [place] [address] PCP - General Family Medicine 02/14/24 Nay Beltran, DO [address] [place] [address] PCP - [facility] [employer] 07/27/24 11/25/99 Perianesthesia Rn Relationship Specialty Start Date End Date Nay Beltran, DO [address] [place] [address] PCP - General Family Medicine 02/14/24 Nay Beltran DO [address] [place] [address] PCP - [facility] [employer] 07/27/24 11/25/99 Perianesthesia Rn Relationship Specialty Start Date End Date Nay Beltran DO [address] [place] [address] PCP - General Family Medicine 02/14/24 Nay Beltran DO [address] [place] [address] PCP - [facility] [employer] 07/27/24 11/25/99 Perianesthesia Rn Relationship Specialty Start Date End Date Nay Beltran DO [address] [place] [address] PCP - General Family Medicine 02/14/24 Nay Beltran DO [address] [place] [address] PCP - [facility] [employer] 07/27/24 11/25/99 Perianesthesia Rn Relationship Specialty Start Date End Date Cruz Rodríguez MD [address] [place] [address] PCP - General Family Medicine 12/02/18 Perianesthesia Rn Relationship Specialty Start Date End Date Cruz Rodríguez MD [address] [place] [address] PCP - General Family Medicine 12/02/18 Perianesthesia Rn Relationship Specialty Start Date End Date Nay Beltran DO [address] [place] [address] PCP - General Family Medicine 02/14/24 Nay Beltran DO [address] [place] [address] PCP - [facility] [employer] 07/27/24 11/25/99 Perianesthesia Rn Relationship Specialty Start Date End Date Nay Beltran DO [address] [place] [address] PCP - General Family Medicine 02/14/24 Nay Beltran DO [address] [place] [address] PCP - [facility] [employer] 07/27/24 11/25/99 Perianesthesia Rn Relationship Specialty Start Date End Date Nay Beltran DO [address] [place] [address] PCP - General Family Medicine 02/14/24 Nay Beltran DO [address] [place] [address] PCP - [facility] [employer] 07/27/24 11/25/99 Perianesthesia Rn Relationship Specialty Start Date End Date Nay Beltran DO [address] [place] [address] PCP - General Family Medicine 02/14/24 Nay Beltran DO [address] [place] [address] PCP - [facility] [employer] 07/27/24 11/25/99 Perianesthesia Rn Relationship Specialty Start Date End Date Cruz Rodríguez MD [address] [place] [address] PCP - General Family Medicine 12/02/18 Perianesthesia Rn Relationship Specialty Start Date End Date Nay Beltran DO [address] [place] [address] PCP - General Family Medicine 02/14/24 Nay Beltran DO [address] [place] [address] PCP - [facility] [employer] 07/27/24 11/25/99 Perianesthesia Rn Relationship Specialty Start Date End Date Nay Beltran DO [address] [place] [address] PCP - General Family Medicine 02/14/24 Nay Beltran DO [address] [place] [address] PCP - [facility] [employer] 07/27/24 11/25/99 Perianesthesia Rn Relationship Specialty Start Date End Date Cruz Rodríguez MD [address] [place] [address] PCP - General Family Medicine 12/02/18 Source Comments (unrecognize d section and content) In the event this informatio n is protected by the Federal Confidentiality of Alcohol and Drug Abuse Patient Records regulations: The Federal rules restrict any use of the information to criminally investigate or prosecute any alcohol or drug abuse patient.[facility] the event this information is protected by the Federal Confidentiality of Alcohol and Drug Abuse Patient Records regulations: The Federal rules restrict any use of the information to criminally investigate or prosecute any alcohol or drug abuse patient.[facility] the event this information is protected by the Federal Confidentiality of Alcohol and Drug Abuse Patient Records regulations: The Federal rules restrict any use of the information to criminally investigate or prosecute any alcohol or drug abuse patient.[facility] the event this information is protected by the Federal Confidentiality of Alcohol and Drug Abuse Patient Records regulations: The Federal rules restrict any use of the information to criminally investigate or prosecute any alcohol or drug abuse patient.[facility] the event this information is protected by the Federal Confidentiality of Alcohol and Drug Abuse Patient Records regulations: The Federal rules restrict any use of the information to criminally investigate or prosecute any alcohol or drug abuse patient.[facility] the event this information is protected by the Federal Confidentiality of Alcohol and Drug Abuse Patient Records regulations: The Federal rules restrict any use of the information to criminally investigate or prosecute any alcohol or drug abuse patient.[facility] the event this information is protected by the Federal Confidentiality of Alcohol and Drug Abuse Patient Records regulations: The Federal rules restrict any use of the information to criminally investigate or prosecute any alcohol or drug abuse patient.[facility] the event this information is protected by the Federal Confidentiality of Alcohol and Drug Abuse Patient Records regulations: The Federal rules restrict any use of the information to criminally investigate or prosecute any alcohol or drug abuse patient.[facility] the event this information is protected by the Federal Confidentiality of Alcohol and Drug Abuse Patient Records regulations: The Federal rules restrict any use of the information to criminally investigate or prosecute any alcohol or drug abuse patient.[facility] the event this information is protected by the Federal Confidentiality of Alcohol and Drug Abuse Patient Records regulations: The Federal rules restrict any use of the information to criminally investigate or prosecute any alcohol or drug abuse patient.[facility] the event this information is protected by the Federal Confidentiality of Alcohol and Drug Abuse Patient Records regulations: The Federal rules restrict any use of the information to criminally investigate or prosecute any alcohol or drug abuse patient.[facility] the event this information is protected by the Federal Confidentiality of Alcohol and Drug Abuse Patient Records regulations: The Federal rules restrict any use of the information to criminally investigate or prosecute any alcohol or drug abuse patient.[facility] Jackson[facility] the event this information is protected by the Federal Confidentiality of Alcohol and Drug Abuse Patient Records regulations: The Federal rules restrict any use of the information to criminally investigate or prosecute any alcohol or drug abuse patient.[facility] Jackson[facility] the event this information is protected by the Federal Confidentiality of Alcohol and Drug Abuse Patient Records regulations: The Federal rules restrict any use of the information to criminally investigate or prosecute any alcohol or drug abuse patient.[facility] Jackson[facility] the event this information is protected by the Federal Confidentiality of Alcohol and Drug Abuse Patient Records regulations: The Federal rules restrict any use of the information to criminally investigate or prosecute any alcohol or drug abuse patient.[facility] Reason for Visit (unrecogniz ed section and content) Reason Comments Menstrual Problem Reason Comments Vaginal Bleeding Reason Comments Endometriosis Reason Comments Insurance Authorization [place] Reason Comments Pelvic Pain Specialty Diagnoses / Procedures Referred By Contac t Referred To Contact GRINDER OPERATOR SURFACE TOOL / GYNECOLOGY Diagnoses Painful menstrual periods Painful Periods Procedures OFFICE/OUTPATIENT ESTABLISHED SF MDM 10-19 MIN EST WHI PATIENT Srinivasa Downs APRN.MARKETING PROGRAM MANAGER [address] [place] [address] Srinivasa Downs, PEDORTHIST.MARKETING PROGRAM MANAGER [address] [place] [address] Referral ID Status Reason Start Date Expiration Date V isits Requested Visits Authorized [id number] Authorized 08/20/2023 11/25/2023 1 99 Reason Comments Radiology MRI Specialty Diagnoses / Procedures Referred By Contac t Referred To Contact MR IMAGING Diagnoses Pelvic and perineal pain Procedures MRI FEMALE PELVIS WO/W IVCON MRI PELVIS W/O & W/CONTRAST MATERIAL Charlene Rodriguez, DO [address] [facility] [address] [place] [address] [place] [address] Referral ID Status Reason Start Date Expiration Date V isits Requested Visits Authorized [id number] Closed Auto-Generate d Referral 05/17/2023 06/15/2024 1 1 Reason Onset Date Comments Refill Request 01/02/2024 Reason Comments Menorrhagia Cramping with bleedi ng Reason Comments Surgery Cancelled Specialty Diagnoses / Procedures Referred By Contac t Referred To Contact Diagnoses Preeclampsia, severe, third trimester Procedures O14.13 - Preeclampsia, severe, third trimester Ritu Ryder, [address] [place] [address] [facility] [address] [place] [address] Referral ID Status Reason Start Date Expiration Date Visits Re quested Visits Authorized [id number] 1 1 Reason Comments Blood Pressure Check Reason Comments Dysmenorrhea Reason Comments Well Women Visit Reason Comments Shoulder Pain Reason Comments Painful [place] Reason Comments Amenorrhea Reason Comments Routine Visit Reason Comments Gestational Diabetes Specialty Diagnoses / Procedures Referred By Contac t Referred To Contact Maternal and Medicine Diagnoses Gestational diabetes mellitus (GDM) in second trimester, gestational diabetes method of control unspecified Nathan Pop, DO [address] [place] [address] Phone: tel: fax: Maternal- Medicine at [facility] [address] [place] [address] Phone: tel: fax: Referral ID Status Reason Start Date Expiration Date Visits Requested Visits Authorized [id number] Pending Review Specialty Services Required 08/20/2025 08/20/2026 [...] every 2-3 minutes with cervical changes or [place] units (MVU) greater than 200 in a [...] DIALLO)[id number] (Given - Provider: Anna Booth RN) Benzocaine-Benzethonium [...] BE BASED ON THE PRIMARY CLINICAL RECORDS. [facility]. provides no warranty or guarantee of the accuracy or completeness of information in this document.
--- OUTSIDE RECORDS SUMMARY | 2025-09-06 13:22 | XMS_ITS | Encounter Summary ---
Author Organization [employer] tem Address [id number] [address] [place] [address] Care Team Providers Care Consulting Solution Manager Name Role Phone Cruz Rodríguez MD Primary Care Provider [phone] Encounter Details Date Type Department Care Team [...] 09/10/2025 9:45 AM EDT Appointment Maternal Medicine [place] [address] [facility] [address] [place] [address] 09/10/2025 11:00 AM EDT Telemedicine Maternal Medicine [place] [address] [facility] [address] [place] [phone] Quynh Clements MD [address] [facility], [address] [place] [address] 10/05/2025 3:00 PM EST Office Visit Maternal- Medicine at [facility] [address] [place] [phone] Kayleigh Rizzo, PAAlbinC [address] [address] documented as of this encounter Visit Diagnoses Not on filedocumented in this encounter Care Teams Consulting Solution Manager Relationship Specialty Start Date End Date Cruz Rodríguez MD [address] [place] [address] PCP - General Family Medicine 12/02/18 documented as of this encounter
--- OUTSIDE RECORDS SUMMARY | 2025-09-06 13:22 | XMS_ITS | Encounter Summary ---
Author Organization [facility] Address [address] [place] [address] Care Team Providers Care Brush Cleaner Name Role Phone NirajEliceo kauffman Bryant DAY Primary Care Provider [phone] CharlottecarloEliceo Bryant DAY Unavailable [phone] Encounter Details Date Type Department Care Team (Late st Contact Info) Description 08/27/2025 Clinisync Result Encounter NOMS External Department Unsolicited Steph Keane, DEVYN [address] [facility] [place] [address] Social History Tobacco Use Types [...] How often do you attend chur or anabaptist services? 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 on file Not on file documented as of this encounter Plan of Treatment Upcoming Encounters Date Type Department Care Team (Late st Contact Info) Description 09/15/2025 2:50 PM EDT Routine [facility] Patti MOODY [address] [place] [address] Zenobia Gutierrez PA [address] [facility] [address] [place], [place] [address] documented as of this encounter Procedures Procedure Name Priority Date/Time Associated Diagnosis Comments US OB BPP W NON-STRESS 08/27/2025 6:02 PM EDT TBH URINE T PROTEIN CREAT RATIO Routine 08/27/2025 5:50 PM EDT [facility] ALT Routine 08/27/2025 5:00 PM EDT documented in this encounter Results * US OB BPP W NON-STRESS (08/27/2025 6:02 PM EDT) Anatomical Region Laterality Modality Other 08/27/2025 6:02 PM EDT Narrative 08/27/2025 6:05 PM EDT [address] [address] Ultrasound Report Signed Patient: DRISS GAMA MR#: [id number] : 1995 Acct:[id number] Age/Sex: 30 / F ADM Date: Loc: [place] [address]: KUNAL HYATT M.D. Ordering Physician: Steph Keane Date of Service: 08/27/25 Procedure(s): US OB BPP w non-stress Accession Number(s): [id number] cc: Steph Keane; Yomaira BELTRAN [address] [address] Patient Name: DRISS GAMA MRN: [facility]:[id number] date: 1995 Sex: F Assigned Patient Location: LAB Current Patient Location: LAB Accession/Order Number: [id number] Exam Date: 08/27/2025 17:37 Report Date: 08/27/2025 [...] Morillo M.D. 08/27/2025 6:02 PM Dictation Location: [place] Electronically authenticated by: [id number] Y Date: 08/27/2025 18:02 Dictated By: Jp Morillo D.O. Signed By: 08/27/251804 DD/ 01 TD/TT: [employer]: Procedure Note Radiology, Radiologist, MD - 08/27/2025 [place] [address] Ultrasound Report Signed Patient: DRISS GAMA MMR#: [id number] : 1995Acct:[id number] Age/Sex: Date: Loc: [facility] [address]: KUNAL HYATT M.D. Ordering Physician: Steph Keane Date of Service: 08/27/25 Procedure(s): US OB BPP w non-stress Accession Number(s): [id number] cc: Steph Keane; Yomaira BELTRAN [place] [address] Patient Name: DRISS GAMA MRN: [id number] date: 1995 Sex: F Assigned Patient Location: LAB Current Patient Location: LAB Accession/Order Number: [id number] Exam Date: 08/27/2025 17:37 Report Date: 08/27/2025 [...] Morillo M.D. 08/27/2025 6:02 PM Dictation Location: [place] [address] Electronically authenticated by: [id number] Y Date: 8: Dictated By: Jp Morillo D.O. Signed By:08/27/251804 DD/ 01 TD/TT: [employer]: Steph Keane NP CLINISYNC IMAGING Final Resul t * (ABNORMAL) TBH URINE T PROTEIN CREAT RATIO (08/27/2025 5:50 PM EDT) TOTAL PROTEIN URINE RANDOM <6.0 <=11.9 mg/dL TBH CREATININE URINE RANDOM <13.00(L) 20.00 - 300.00 mg/dL TBH 08/27/2025 5:50 PM EDT 08/27/2025 5:58 PM EDT Narrative CLINISYNC - 08/27/2025 6:10 PM EDT us Steph Keane NP CLINISYNC Final Result CLINISYNC TBH * CCF ALT (08/27/2025 5:00 PM EDT) ALANINE AMINOTRANSFERASE 37 14 - 59 U/L TBH 08/27/2025 5:00 PM EDT 08/29/2025 12:46 PM EDT Narrative CLINISYNC - 08/29/2025 1:28 PM EDT Generic External Data Provider CLINISYNC F inal Result CLINISYNC [facility] documented in this encounter Visit Diagnoses Not on filedocumented in this encounter Care Teams Brush Cleaner Relationship Specialty Start Date End Date Eliceo Beltran DO [address] [place] [address] PCP - General Family Medicine 02/14/24 Eliceo Beltran DO [address] [place] [address] PCP - Medical [place] [employer] 07/27/24 11/25/99 documented as of this encounter
--- OUTSIDE RECORDS SUMMARY | 2025-09-06 13:22 | XMS_ITS | Encounter Summary ---
Author Organization [facility] Address [address] [place] [address] Care Team Providers Care Senior Shipping Clerk Name Role Phone NirajEliceo kauffman Primary Care Provider Charlottecarol Eliceo Hurtado DO Unavailable [phone] Encounter Details Date Type Department Care Team (Late st Contact Info) Description 03/16/2025 Abstract [facility] Patti OBGYN [address] [facility] [phone] Nathan Pop DO [address] [facility] [address] Shereen Armstrong, [facility] Social History Tobacco Use Types [...] How often do you attend chur or islam services? 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 on file Not on file documented as of this encounter Plan of Treatment Upcoming Encounters Date Type Department Care Team (Late st Contact Info) Description 09/15/2025 2:50 PM EDT Routine [facility] Patti OBJUSTINE [address] [place] [address] [place] [address] Zenobia Gutierrez PA [address] [place] [address] [place] [address] documented as of this encounter Visit Diagnoses Not on filedocumented in this encounter Care Teams Senior Shipping Clerk Relationship Specialty Start Date End Date Eliceo Beltran DO [address] [address] PCP - General Family Medicine 02/14/24 Eliceo Beltran DO [address] [address] PCP - Medical [place] [employer] 07/27/24 11/25/99 documented as of this encounter
--- OUTSIDE RECORDS SUMMARY | 2025-09-06 13:22 | XMS_ITS | Encounter Summary ---
Author Organization [facility] Address [address] [place] [address] Care Team Providers Care Hog Pusher Name Role Phone NirajEliceo kauffman Bryant DAY Primary Care Provider [phone] CharlottecarolEliceo Bryant DAY Unavailable [phone] Encounter Details Date Type Department Care Team (Late st Contact Info) Description 08/27/2025 Clinisync Result Encounter NOMS External Department Unsolicited Steph Keane, DEVYN [address] [facility] [place] [address] Social History Tobacco Use Types [...] How often do you attend chur or mandaeism services? 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 file Not on file documented as of this encounter Plan of Treatment Upcoming Encounters Date Type Department Care Team (Late st Contact Info) Description 09/15/2025 2:50 PM EDT Routine [facility]OM[facility] Patti MOODY [address] [place] [address] Zenobia Gutierrez PA [address] [facility] [place] [address] documented as of this encounter Procedures Procedure Name Priority Date/Time Associated Diagnosis Comments [facility] CREATININE Routine 08/27/2025 5:00 PM EDT [facility] [...] THROMBOPLASTIN TIME 25.6 22.3 - 36.2 sec [facility] 08/27/2025 5:00 PM EDT 08/27/2025 5:01 PM EDT Narrative CLINISYNC - 08/27/2025 5:21 PM EDT Steph Keane NP CLINISYNC Final Result CLINISYNC [facility] * [facility] PROTHROMBIN TIME INR W/O COUM (08/27/2025 5:00 PM EDT) PROTHROMBIN TIME 9.7 9.0 - 11.6 sec TBH TBH INR <0.93 TBH Comment: DESIRED INR: 2.0-3.0 CONDITIONS NOT LISTED BELOW 2.5-3.5 FOR PROSTHETIC HEART VALVE REPLACEMENT 2.5-3.5 RECURRENT THROMBOSIS 08/27/2025 5:00 PM EDT 08/27/2025 5:01 PM EDT Narrative CLINISYNC - 08/27/2025 5:21 PM EDT Steph Keane NP CLINISYNC Final Result CLINISYNC [facility] * ALL LDH (08/27/2025 5:00 PM EDT) LACTATE DEHYDROGENASE 151 81 - 234 U/L TB 08/27/2025 5:00 PM EDT 08/27/2025 5:01 PM EDT Narrative CLINISYNC - 08/27/2025 5:19 PM EDT Steph Keane NP CLINISYNC Final Result Performing Organization Address [facility] Co de Phone Number [facility] AST (08/27/2025 5:00 PM EDT) ASPARTATE AMINO TRANSFERASE 21 15 - 37 U/L [facility] 08/27/2025 5:00 PM EDT 08/27/2025 5:01 PM EDT Narrative CLINISYNC - 08/27/2025 5:19 PM EDT Steph Keane NP CLINISYNC Final Result Performing Organization Address City/[facility]/ZIP Co de Phone Number [facility] * ALL URIC ACID (08/27/2025 5:00 PM EDT) URIC ACID 3.3 2.6 - 6.0 mg/dL TB[facility] 08/27/2025 5:00 PM EDT 08/27/2025 5:01 PM EDT Narrative CLINISYNC - 08/27/2025 5:19 PM EDT us Steph Keane NP CLINISYNC Final Result Performing Organization Address [facility] de Phone Number CLINISYNC TB * (ABNORMAL) TBH CREATININE (08/27/2025 5:00 PM EDT) CREATININE 0.45(L) 0.55 - 1.02 mg/dL TBH TBH EGFR-AF AFGHAN >60 >=60 mL/min/1.7 3m 2 TBH TBH EGFR-NON AF AFGHAN >60 >=60 mL/min/1.7 3m 2 TBH 08/27/2025 5:00 PM EDT 08/27/2025 5:01 PM EDT Narrative CLINISYNC - 08/27/2025 5:19 PM EDT us Steph Keane NP CLINISYNC Final Result Performing Organization Address [facility] de Phone Number CLINISYNC [facility] * ALL BUN (08/27/2025 5:00 PM EDT) BLOOD UREA NITROGEN 9.0 7.0 - 18.0 mg/dL TBH 08/27/2025 5:00 PM EDT 08/27/2025 5:01 PM EDT Narrative CLINISYNC - 08/27/2025 5:19 PM EDT us Steph Keane NP CLINISYNC Final Result Performing Organization Address [facility] de Phone Number CLINISYNC TBH * (ABNORMAL) ALL CBC WITH AUTO DIFF (08/27/2025 5:00 PM EDT) TBH WBC 13.3(H) 4.0 - 11.0 10 [...] PM EDT us Generic External Data Provider CLINISYTERRY F inal Result CLINISYNC [facility] documented in this encounter Visit Diagnoses Not on filedocumented in this encounter Care Teams Hog Pusher Relationship Specialty Start Date End Date Eliceo Beltran DO [address] [place] [address] PCP - General Family Medicine 02/14/24 Eliceo Beltran DO [address] [place] [phone] PCP - Medical [place] [employer] 07/27/24 11/25/99 documented as of this encounter
--- OUTSIDE RECORDS SUMMARY | 2025-09-06 13:23 | XMS_ITS | Encounter Summary ---
Author Organization [facility] tem Address [id number] [address] [place] [address] Care Team Providers Care Mural Painter Name Role Phone Cruz Rodríguez MD Primary Care Provider [phone] Encounter Details Date Type Department Care Team (Late st Contact Info) Description 09/01/2025 Telephone Maternal- Medicine at [facility] [address] [place] [phone] Cha Harris, RN Social History Tobacco Use Types Packs/Day [...] encounter Miscellaneous Notes * Telephone Encounter - Cha Harris RN - 09/01/2025 12:29 PM EDT Called pt to discuss her blood sugars. She has more than 20% of her blood sugars elevated and all her fastings are high. She stated she is doing an 8 hour fasting and a snack in the evening. Let her know that we recommend a medication start. [facility]. documented in this encounter Plan of Treatment Upcoming Encounters Date Type Department Care Team (Late st Contact Info) Description 09/10/2025 9:45 AM EDT Appointment Maternal Medicine [place] [address] [phone] 09/10/2025 11:00 AM EDT Telemedicine Maternal Medicine [place] [address] [address] Quynh Clements MD [address] [address] 10/05/2025 3:00 PM EST Office Visit Maternal- Medicine at [facility] [address] [place] [phone] Kayleigh Rizzo, PAAlbinC [address] [address] documented as of this encounter Visit Diagnoses Not on filedocumented in this encounter Care Teams Mural Painter Relationship Specialty Start Date End Date Cruz Rodríguez MD [address] [place] [address] PCP - General Family Medicine 12/02/18 documented as of this encounter
--- OUTSIDE RECORDS SUMMARY | 2025-09-06 13:23 | XMS_ITS | Encounter Summary ---
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 IMPRESSION: No deep infiltrating endometriosis. Strainer Cleaner: DAVID Transcribe Date/Time: Jun 12 2023 2:54P Dictated by : ASHLEY DUKE MD This examination was interpreted and the report reviewed and electronically signed by: SONIDO FLAHERTY MD on Jun 12 2023 4:51PM EST [id number]^SI^ACN Procedure Note Radiology, Radiologist, - 06/13/2023 * * *Final Report* * * DATE OF EXAM: Jun 12 2023 2:47PM [facility] 0713 - MRI FEMALE PELVIS [...] additional findings. IMPRESSION: No deep infiltrating endometriosis. Strainer Cleaner: DAVID Transcribe Date/Time: Jun 12 2023 2:54P Dictated by : ASHLEY DUKE MD This examination was interpreted and the report reviewed and electronically signed by: SONIDO FLAHERTY MD on Jun 12 2023 4:51PM EST [id number]^SI^ACN Generic External Data Provider CLINISYNC IMAGING Final Result documented in this encounter Visit Diagnoses Not on filedocumented in this encounter Care Teams Online Merchandising Specialist Relationship Specialty Start Date End Date Cruz Rodríguez MD [address] [place] [address] PCP - [place] [employer] 09/26/2111/25 Cruz Rodríguez MD [address] [place] [address] PCP - General Family Medicine 04/10/23 02/13/24 Cruz Rodríguez MD [address] [place] [address] PCP - [facility] 02/24/23 4 Eliceo Beltran DO [address] [place] [address] PCP - General Family Medicine 02/14/24 Eliceo Beltran DO [address] [place] [address] PCP - Medical [place] [employer] 07/27/24 11/25/99 Zenobia East NP [address] [place] [address] Nurse Practitioner Family Medicine 10/05/23 04/14/24 Trista Taho CONTACT ACID PLANT OPERATOR [address] [place] [address] Nurse Practitioner Pulmonary Disease 10/05/23 04/14/24 documented as of this encounter
== END 2025-09-03 18:15 | disposition home or self-care (01) ==
LOC: FBC 17:00 → FBCO 09-06 13:19
PROVIDERS: Family Provider Family Medicine; PCP Family Medicine; Visit Provider Obstetrics & Gynecology
DX: O13.2 Gestational [pregnancy-induced] hypertension without significant proteinuria, second trimester (principal); Z3A.27 27 weeks gestation of pregnancy; O16.2 Unspecified maternal hypertension, second trimester
CPT/HCPCS: 36415; 59025; 82565; 82570; 84156; 84450; 84460; 84520; 84550; 85025; 85384; 85610; 85730; G0378; G0379

== ENCOUNTER 2025-09-19 07:41 | Outpatient (OUT) | payer OTHER, SELFPAY ==
--- OUTSIDE RECORDS SUMMARY | 2025-09-10 11:00 | XMS_ITS | Encounter Summary ---
Author Organization [employer] tem Address [id number] [address] [place] [address] Care Team Providers Care At Risk Paraprofessional Name Role Phone Cruz Rodríguez MD Primary Care Provider [phone] Reason for Visit * ReasonCommentsMFM consult Encounter Details DateTypeDepartmentCare Team (Latest Contact Info)Raepolqxhjj37/16/2025 11:00 AM EDTTelemedicine Maternal Medicine [place] [address] [facility] [address] [place] [phone] Madhuri Clements MD [address] [facility], [address] [place] [address] 28 weeks gestation of (Primary Dx); Insulin controlled gestational diabetes mellitus (GDM) in second trimester; Essential hypertension affecting in third trimester Social History Tobacco UseTypesPacks/DayYears UsedDateSmoking Tobacco: NeverSmokeless Tobacco: NeverAlcohol UseStandard Drinks/WeekCommentsNo0 (1 standard drink = 0.6 oz pure alcohol)AUDIT-CAnswerDate RecordedQ1: How often do you have a drink containing alcohol?Never09/10/2025Q2: How many drinks containing alcohol do you have on a typical day when you are drinking?Patient does not drink09/10/2025Q3: How often do you have six or more drinks on one occasion?Never09/10/2025hildcareAnswer Date EtvpnxhrHbzgoaoitXshvkyf20/13/2019EmploymentAnswerDate RecordedEmployment Ceutdko0605/08/2019Hunger ScreeningAnswerDate RecordedWithin the past 12 months we worried whether our food would run out before we got money to buy more.Never True09/10/2025Within the past 12 months the food we bought just didn't last and we didn't have money to get more.Never True09/10/2025Purpose - LifeAnswerDate RecordedPurpose and direction in iczeUomfxeq18/11/2021Estimated Date of BsrxaoxbDnhzplpeKpz60/03/2026Based on last menstrual period of 02/21/2025 (Exact Date)Sex and Gender InformationValueDate RecordedSex Assigned at BirthNot on fileLegal KhtXlhouo88/07/2019 2:55 PM ESTGender IdentityNot on fileSexual OrientationNot on filedocumented as of this encounter Last Filed Vital Signs Vital SignReadingTime TakenCommentsBlood Wcdrmqxf753/801 10:34 AM EDT Pulse--Temperature--Respiratory Rate--Oxygen Saturation--Inhaled Oxygen Concentration--Bgeqvi11.6 kg (160 lb)09/10/2025 10:34 AM EDTHeight--Body Mass Index29.2610 2:48 PM EDTdocumented in this encounter Functional Status * AUDIT-C ScoreAnswerDate of IfybyjllphQxgixo555/16/2025 10:17 AM Danae Salazar RN * QuestionAnswerDate of AssessmentAuthorQ1: How often do you have a drink containing alcohol?Never09/10/2025 10:17 AM Danae Salazar RNQ2: How many drinks containing alcohol do you have on a typical day when you are drinking? Patient does not drink09/10/2025 10:17 AM Danae Salazar RNQ3: How often do you have six or more drinks on one occasion?Never09/10/2025 10:17 AM EDT Danae Ramirez RN documented as of this encounter Patient Instructions * Attachments The following attachments cannot be sent through Care Everywhere. * Preeclampsia (Salvadorean) documented in this encounter Progress Notes * Madhuri Clements MD - 09/10/2025 11:00 AM EDT Video Visit via Real-time Synchronous Audiovisual Provider Location: [facility], MATERNAL- MEDICINE [address] [place] [address], [address] [place] [id number] Patient Location: [facility] OB office Patient Location Lingo Cleaner: None Video Visit Consent Statement: I discussed risks, benefits, and alternatives of a real-time synchronous audiovisual consultation with the patient (and any accompanying persons) including the risks that the patient's personal health details and medical records will be discussed over real-time, synchronous, interactive video/audio/telecommunication technology, the visit will not be recorded withoutthe express consent of both the provider and the patient, and that there are some limitations compared to qowy-yv-mffq evaluations. We elected to proceed. REASON FOR OFFICE VISIT: follow up HISTORY OF PRESENT ILLNESS: Driss Gama is a pleasant 30 y.o. G 2 P0 101. at 28w5d due on Estimated Date of Delivery: 11/28/25 . Patient was seen today due to the following 1. Maternal essential hypertension currently on labetalol. Labetalol 200 mg 3 times a day. BP stable <140/90 2. History of preeclampsia leading to medically indicated delivery. 3. GDMA2 on glargine Currently the patient has no complaints. The patient denies nausea, vomiting, abdominal pain, vaginal bleeding, SOB or chest pain.Reports good movement. Denies contractions or leakage of fluid. Low risk cell free DNA MSAFP negative Patient's PMH/PSH,SH,PSYCH Hx, MEDs, ALLERGIES, and ROS were all reviewed and updated in the appropriate sections. Patient Active Problem List Diagnosis Insulin controlled gestational diabetes mellitus (GDM) in second trimester Essential hypertension affecting in third trimester Past Medical History: Diagnosis Date Endometriosis John San infection History of pre-eclampsia Hypertension Migraine Pleurisy Vision impairment PAST OBSTETRICAL HISTORY: OB History Para Term AB Living 2 1 0 1 1 SAB IAB Ectopic Multiple Live Births 1 # Outcome Date GA Lbr Suresh/2nd Weight Sex Type Anes PTL Lv 2 Current 1 11/30/22 F Vag-Spont N CHANCE Complications: Preeclampsia SURGICAL HISTORY: Past Surgical History: Procedure Laterality Date APPENDECTOMY 05/2016 DILATION AND CURETTAGE OF UTERUS 12/2022 retained placenta DISTAL CLAVICLE EXCISION Right 07/2018 LAPAROSCOPY DIAGNOSTIC / BIOPSY / ASPIRATION / LYSIS 02/2019 endometriosis LAPAROSCOPY DIAGNOSTIC / BIOPSY / ASPIRATION / LYSIS 02/29/2024 SHOULDER SURGERY Right 11/2022 ALLERGIES: No Known Allergies CURRENT MEDICATIONS: Current Outpatient Medications: insulin glargine-yfgn 100 unit/mL (3 mL) insulin pen, Prime with 2 units and give 10 units subQ at bedtime., Disp: 15 mL, Rfl: 3 labetaloL (NORMODYNE) 100 mg tablet, Take 2 tablets (200 mg total) by mouth 3 (three) times a day.,Disp: , Rfl: pen needle, diabetic (BD ULTRA-FINE REGGIE PEN NEEDLE) 32 gauge x 5/32 needle, Use pen needles to give insulin., Disp: 100 each, Rfl: 1 PNV no.95-ferrous fumarate-FA () 28 mg iron- [...] and the other consultants, we search on [employer] and all the available care everywhere epic I did review all the imaging studies of the patient available on EMR, ordered by the primary care physician and the other investment consultant HABITS: Patient activity no restrictions, diet no restrictions REVIEW OF SYSTEM: Head and Neck: Negative for any dizziness and headaches. Cardiovascular and Respiratory System: Denies any chest pain, shortness of breath, and coughing. Abdominal and System: Denies any abdominal pain, nausea, vomiting, vaginal bleeding, and vaginal discharge PHYSICAL EXAMINATION: LMP 02/21/2025 (Exact Date) video visit Vitals: 09/10/25 1034 BP: 132/80 Appears alert and oriented MEDICAL DECISION MAKING DISCUSSION: Please refer to original Maternal- Medicine note for detailed recommendation. Ultrasound was discussed with the patient today and anatomy is incomplete. I recommended that she monitors her blood pressure at home goal is less than 140/90 and she is compliant with the her current dose of labetalol. Education given on signs and symptoms of preeclampsia.I discussed that she is at an increased risk of preeclampsia recurrence. BG logs reviewed cont to have elevated fastings. She tells me that since Sunday her fastings are also in the 100. She has been compliant with a 10 units of glargine nightly, this was increased today to 13 units. Glucose goals in : Fasting 60 - 95 One hour postprandial 90 - 140 Discussed monitoring for hypogylcemia, and treatment of hypoglycemia. Discussed her current diet and her awareness of grams of carbohydrate per meal. Encouraged her to be aware of carbohydrate intake and note which foods causing values above goal. Encouraged her on diet modifications. Encouraged patient to check post prandials for all three meals, as we cannot support her to limit risk of hyperglycemia without knowing her BG. Also requested she check fasting BG levels 8-10hrs fromlast eating. RECOMMENDATION: - Continue labetalol 200 mg p.o. q.8 hours with a goal of keeping blood pressure at or below 140/90and therefore medication can be titrated accordingly or Procardia can be added. - Please obtain baseline 24 urine protein excretion of protein creatinine ratio along with a comprehensive metabolic profile through her OB office. - Lantus 13 units subQ at bedtime. - Give half the dose of long-acting insulin the night before delivery. - Continue checking blood glucose and remote evaluation through [facility] office until delivery. - Discontinue blood glucose evaluation and Lantus and offer formal glucose tolerance test around 6 weeks . - follow-up survey with the [facility] office visits scheduled. - continue serial growth ultrasounds every 4 weeks at her OB office. - Initiate testing NST and LEONEL at 32 weeks gestation weekly, increase NST x2 week at 36 weeks through OB office. - Delivery at 38 weeks gestation based on maternal essential hypertension on medication criteria. - Vaginal delivery is to be anticipated with C section reserve for routine obstetrical indications. 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 Patient does have ultrasound video visit scheduled with us. Thank you for allowing me to participate in Driss Gama . If there any questions please do not hesitate to contact us. Sincerely, MADHURI CLEMENTS MD * Danae Ramirez RN - 09/10/2025 11:00 AM EDT Headache/epigastric pain/blurry vision/swelling? Frequent headaches that usually goes away on its own, not relieved with Tylenol. Some feet ankle swelling that comes and goes Cramping/contractions? denies Spotting or vaginal bleeding? denies Loss or gush of fluid like your water may have broken? denies Recent ER visits or hospitalizations? To L&D after last 2-3 OB appointments for elevated BP. Any concerns that you would like me to mention to the provider today? none * Danae Ramirez RN - 09/10/2025 11:00 AM EDT Appt tracker processed and follow up appointment scheduled by Zora in [facility]. documented in this encounter Plan of Treatment DateTypeDepartmentCare Team (Latest Contact Info)Tntwmefjuci89/10/2025 3:00 PM ESTTelemedicine Maternal- Medicine at [facility] [address] [place] [address] Kayleigh Rizzo, PAAlbinC [address] [address] 10/08/2025 8:00 AM ESTAppointment Maternal Medicine [place] [address] [facility] [address] [place] [phone] documented as of this encounter Visit Diagnoses Diagnosis 28 weeks gestation of - Primary Insulin controlled gestational diabetes mellitus (GDM) in second trimester Essential hypertension affecting in third trimester documented in this encounter Care Teams Team MemberRelationshipSpecialtyStart DateEnd Date Cruz Rodríguez MD [address] [place] [address] PCP - GeneralFamily Medicine12/02/18documented as of this encounter
--- OUTSIDE RECORDS SUMMARY | 2025-09-16 15:20 | XMS_ITS | Encounter Summary ---
Author Organization [facility] Address [address] [place] [address] Care Team Providers Care Student Assistant Name Role Phone CharlotteEliceo medina Primary Care Provider [phone] CharlottecarolEliceo Bryant DAY Unavailable [phone] Encounter Details DateTypeDepartmentCare Team (Latest Contact Info)Ykoqiemeemu78/22/2025 3:20 PM EDTRoutine [facility] [address] [place] [id number] Nathan Pop DO [address] [place], [id number] 29 weeks gestation of ([facility]); Third trimester ([facility]); Hypertension affecting , antepartum ([facility]); Gestational diabetes mellitus (GDM), antepartum, gestational diabetes method of control unspecified([facility]) Social History Tobacco UseTypesPacks/DayYears UsedDateSmoking Tobacco: NeverSmokeless Tobacco: NeverAlcohol UseStandard Drinks/WeekCommentsNever0 (1 standard drink = 0.6 oz pure alcohol)caffeine: 1-2 cups per day, coffee and [id number] Health Literacy AnswerDate RecordedHow often do you [...] relatives?Once a week12/29/2024How often do you attend shinto or lutheran services?Patient /03/2025Do you belong to any clubs or organizations such as shinto groups, unions, fraEvolve IP or athletic leodan ups, or school groups?No12/29/2024How often do you attend meetings of the clubs or organizations you belong to?Patient nuyekwfk96/03/2025re you , , , , never , [...] hard at all12/29/2024PHQ-2AnswerDate RecordedPatient Health Questionnaire-2 Score0 07/30/2025[facility] [place] [facility] - Occupational Stress QuestionnaireAnswerDate RecordedDo you feel stress - tense, restless, nervous, or anxious, or unable to sleep at night because yourmind is troubled all the time - these days?Only a mxleoe8012/29/2024Exercise Vital SignAnswerDate Recorded On average, how many [...] steady place to sleep or slept in [facility] (including now)?No09/19/2023Housing Stability Vital SignAnswerDate RecordedIn the last 12 months, was there a time when you were not able to pay the mortgage or rent on time?No12/29/2024Number of Times Moved in the Last YearNot on file12/29/2024t any time in the past 12 months, were you homeless or living in a fci (including now)?No12/29/2024 EducationAnswerDate RecordedWhat is the highest level of school you have completed or the highest degree you have received?High school kzrymdrx13/29/2023 Estimated Date of UztppmbgHbztcondCwl34/03/2026ased on last menstrual period of 02/21/2025Sex and Gender InformationValueDate RecordedSex Assigned at BirthNot on fileLegal DtrDrculk74/15/2023 7:18 PM EDTGender IdentityNot on file Sexual OrientationNot on 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 Not on fileNot on fileNot on filedocumented as of this encounter Last Filed Vital Signs Vital SignReadingTime TakenCommentsBlood Pfcjllrn393/8010 4:04 PM EDT Pulse--Temperature--Respiratory Rate--Oxygen Saturation--Inhaled Oxygen Concentration--Gjhnfz67.8 kg (162 lb 12.8 oz)09/16/2025 4:04 PM [...] John San infection GDM (gestational diabetes mellitus) ([facility]) Headache History of menstrual cramps ([facility]) Varicella zoster Visual impairment HISTORY PAST MEDICAL HISTORY SOCIAL HISTORY Past Medical History: Diagnosis Date Amenorrhea d/t oral contraceptive pills Endometriosis John San infection GDM (gestational diabetes mellitus) ([facility]) Headache History of menstrual cramps severe Hypertension ([facility]) x1 Varicella zoster unsure Visual impairment [...] History: Procedure Laterality Date APPENDECT[facility]Y 05/2016 [facility] 12/2022 [...] nursing note reviewed. Exam conducted with a nanotechnology engineering technician present. Vitals: Estimated body mass index is 29.78 kg/m?? as calculated from the following: Height as of 07/30/25: 5' 2 . Weight as of this encounter: 162 lb 12.8 oz. BP: 120/80 Patient's last menstrual period was 02/21/2025. Assessment/Plan ICD-10-CM 1. 29 weeks gestation of ([facility]) Z3A.29 POCT urinalysis dipstick manually resulted 2. Third trimester ([facility]) Z34.93 POCT urinalysis dipstick manually resulted 3. Hypertension affecting , antepartum ([facility]) O16.9 4. Gestational diabetes mellitus (GDM), antepartum, gestational diabetes method of control unspecified ([facility]) O24.419 Return OB: Patient presents today for [...] and continues to report glucose log to [facility]. Follow up Ultrasound in 4 weeks. Orders Placed This Encounter Procedures POCT urinalysis dipstick manually resulted Follow Up: Patient is to return to office in 2 week for routine OB appointment. Documented by Steph Keane NP on behalf of: Nathan Pop DO documented in this encounter Plan of Treatment DateTypeDepartmentCare Team (Latest Contact Info)Bowzygrxyjn42/05/2025 3:00 PM ESTRoutine [facility] [address] [place] [phone] Nathan Pop DO [address] [place], [place] [id number] NameTypePriorityAssociated DiagnosesOrder ScheduleUS OB follow up transabdominal approachImagingRoutine Gestational diabetes mellitus (GDM), antepartum, gestational diabetes method of control unspecified([facility]) every 4 weeks for 2 Occurrences starting 09/16/2025 until 12/17/2025US biophysical profile w non stress testImagingRoutine Gestational diabetes mellitus (GDM), antepartum, gestational diabetes method of control unspecified([facility]) Expected: 09/16/2025, Expires: 09/16/2026documented as of this encounter Procedures Procedure NamePriorityDate/TimeAssociated DiagnosisCommentsPOCT URINALYSIS OMYYJVTYKyvvpga43/22/2025 4:09 PM EDT 29 weeks gestation of ([facility]) Third trimester ([facility]) documented in this encounter Results * [...] Visit Diagnoses Diagnosis 29 weeks gestation of ([facility]) Third trimester ([facility]) state, incidental Hypertension affecting , antepartum ([facility]) Gestational diabetes mellitus (GDM), antepartum, gestational diabetes method of control unspecified([facility]) documented in this encounter Care Teams Team MemberRelationshipSpecialtyStart DateEnd Date Eliceo Beltran DO [address] [place] [address] PCP - GeneralFamily Medicine02/14/24 Eliceo Beltran DO [address] [place] [address] PCP - Medical [employer]07/27/2412documented as of this encounter
--- NOTE | 2025-09-19 | US_ITS ---
[place] [id number] Patient Name: JUHI HOPE MRN: [id number] date: 1995 Sex: F Assigned Patient Location: [facility] Current Patient Location: Accession/Order Number: [id number] Exam Date: 09/19/2025 10:06 Report Date: 09/19/2025 12:17 At the request of: MARBELLA HUNTER Procedure: US OB BPP w non-stress Ultrasound biophysical profile HISTORY: Gestational diabetes Adequate breathing movement, gross body movement, tone and amniotic fluid volume for total score of 8 out of 8. The amniotic fluid index is 13.8cm within normal limits. The heart rate 141 bpm. US/US OB BPP w non-stress IMPRESSION: Adequate ultrasound biophysical profile Impression dictated by: Jp Morillo M.D. 09/19/2025 12:17 PM Dictation [facility] Electron[facility] authenticated by: [id number] Y Date: 09/19/2025 12:17
--- OUTSIDE RECORDS SUMMARY | 2025-09-19 07:44 | XMS_ITS | CCD ---
Author Organization [facility] Care Team Providers Care Tool Rental Technician Name Role Phone Unavailable Unavailable POCOPAL QUINTEROS Referring Unavailable DENNY RODRÍGUEZ Primary Care Unavailable OPAL LARA Referring Unavailable DENNY RODRÍGUEZ Primary Care Unavailable DENNY RODRÍGUEZ Primary Care Physician Domo Hodges Unavailable PAOLO DIALLO Attending Unavailable KATHE RYDER Admitting Unavailable KATHE RYDER Attending Unavailable Denny Rodríguez MD Primary Care Provider Denny Rodríguez MD Unavailable [phone] Denny Rodríguez MD Primary Care Provider [phone] Denny Rodríguez MD Unavailable Kita STACKER OPERATOR, Zenobia Unavailable Keesha STACKER OPERATOR, Trista R Unavailable [phone] Denny Rodríguez MD Primary Care Provider [phone] CHARLENE RODRIGUEZ Referring Unavailable RODRÍGUEZ, DENNY SAIHL Primary Care Unavailable CHARLENE RODRIGUEZ Attending Unavailable RODRÍGUEZ, DENNY SAHIL Referring Unavailable RODRÍGUEZ, DENNY SAHIL Primary Care Unavailable CHARLENE RODRIGUEZ Attending Unavailable RODRÍGUEZ, DENNY SAHIL Primary Care Unavailable RODRÍGUEZ, DENNY SAHIL Primary Care Unavailable CHARLENE RODRIGUEZ Attending Unavailable REAPER, JIHAN Referring Unavailable REAPER, JIHAN Attending Unavailable RODRÍGUEZ, DENNY SAHIL Primary Care Unavailable RODRÍGUEZ, DENNY SAHIL Primary Care Unavailable REAPER, JIHAN Attending Unavailable Unavailable Primary Care Provider Unavailabl e Eliceo Beltran DO Primary Care Provider ELICEO MALONEY Primary Care Physician Unavailab Denny Ross MD Primary Care Provider Kiesha DO, Nathan Attending Provider Kiesha, Nathan Admitting Unavailable Kiesha, Nathan Attending Unavailable Dickson Rodríguezian Primary Care Unavailable KIESHA, Nathan R Attending Unavailable KIESHA, Nathan R Referring Unavailable KIESHA, Nathan R Admitting Unavailable KIESHA, Nathan R Attending Unavailable KIESHA, Nathan R Admitting Unavailable Kaftan DO Eliceo R Unavailable [phone] Yomaira BELTRAN Attending Unavailable KAFTAN, G KENNETH Admitting Unavailable KIESHA, Nathan R Attending Unavailable KIESHA, Nathan R Admitting Unavailable KIESHA, Nathan R Admitting Unavailable KIESHA, Nathan R Attending Unavailable KAGREGOR G KENNETH Admitting Unavailable KAFTANYomaira Attending Unavailable KAYomaira BUNDY Admitting Unavailable KAFTAN, Yomaira COOPER Attending Unavailable Denny Rodríguez MD Primary Care Provider [phone] STEPH KEANE Attending Unavailable STEPH KEANE Admitting Unavailable Yomaira BELTRAN Attending Unavailable KAYomaira BUNDY Admitting Unavailable KIESHA, Nathan R Consulting Unavailable KIESHA, DO Nathan R Consulting Unavailable KIESHA, Nathan R Consulting Unavailable KIESHA, Nathan R Attending Unavailable KIESHA, Nathan R Admitting Unavailable ELSAANA LAURA MONTIEL Attending Unavailable ELSA, ANA LAURA TYSON Admitting Unavailable KERLINE AUGUSTIN Attending Unavailable KIESHA, NATHAN R Referring Unavailable RODRÍGUEZ DENNY A Primary Care Unavailable MINE DENISE Attending Unavailable KIESHA, NATHAN R Referring Unavailable RODRÍGUEZ, DENNY A Primary Care Unavailable Denny Rodríguez MD Primary Care Provider KIESHA, NATHAN R Referring Unavailable RODRÍGUEZ, DENNY A Primary Care Unavailable MADHURI MONROY Attending Unavailable DENNY RODRÍGUEZ A Referring Unavailable RODRÍGUEZDENNY A Primary Care Unavailable KAELICEO BUNDY Attending Unavailable KIESHA, NATHAN Attending Unavailable KIESHA, NATHAN Attending Unavailable KIESHA, NATHAN Attending Unavailable KIESHA, NATHAN Attending Unavailable KAFTELICEO MARQUEZ Attending Unavailable KIESHA, NATHAN Attending Unavailable STEPH KEANE Attending Unavailable STEPH KEANE Attending Unavailable NATHAN POP Attending Unavailable Allergies Allergy ClassificationReported Allergen(s)Allergy TypeDate of OnsetReaction(s) Facility (4 sources)No Known Medication Allergies; Translations: [No Known Medication Allergies]Propensity to adverse reactions (disorder)[facility] Repository Medications Current Medications MedicationDrug Class(es)DatesSig (Normalized)Sig (Original)acetaminophen 325 mg / butalbital 50 mg / caffeine 40 mg oral tablet (14 sources)Barbiturate, Central Nervous System Stimulant, MethylxanthineStart: 02-19-2024 End: 27-02-9384qcod 1 tablet by mouth every six hours for headache lckghdrgrf-oafxlekfetzbc-qiiibrih 50-325-40 MG tablet Indications: Other migraine without status migrainosus, not intractable Take 1 tablet by mouth every 6 (six) hours if needed for headaches 20 tablet 02/19/2024 05/01/2025 Discontinuedatenolol 25 mg oral tablet (4 sources)beta-Adrenergic BlockerStart: 01-89-0686ahgv 1 mg by mouth once daily atenolol 25 mg Tab mg tab(s), Oral, Daily, Refills(s) 0 Start Date: 02/02/21 Status: OrderedStart: 08-06-2017 End: 70-06-9503dvby 1 tablet by mouth once dailyAtenolol 50 mg tablet Discontinued 50 MG PO Daily August 06, 2017 12:00am October 16, 2018 3 :34pmbaclofen suppository 10 mg (CPD) (8 sources)Start: 32-06-5167zzdrjllb suppository 10 mg (CPD) Indications: High- tone pelvic floor dysfunction , Chronic pelvic pain in female Unwrap and insert one suppository vaginally daily at bedtime. 30 Suppository 2 08/24/2023 Active Comment on above:Unwrap and insert one suppository vaginally daily at bedtime. Blood Glucose Monitoring Suppl (D-Care Glucometer) w/Device kit (14 sources)Start: 08-20-2025 End: 74-58-1846Ilrje Glucose Monitoring Suppl (D-Care Glucometer) w/Device kit Indications: Gestational diabetes mellitus (GDM), antepartum, gestational diabetes method of control unspecified ([facility]) , Elevated glucose tolerance test 1 kit Daily Use four times daily to check FSBS. In the morning prior to breakfast & 1 hour after each meal for a total of 4times daily. 1 kit 08/20/2025 08/20/2026 Activecephalexin 500 mg oral capsule (6 sources)Cephalosporin AntibacterialStart: 02-14-2021 End: 00-53-6165klas 1 capsule by mouth every twelve hoursKeflex 500 mg Cap 500 mg = 1 cap(s), Oral, q12hr, X 7 day(s), # 14 cap(s), Refills(s) 0 Start Date: 07/14/22 Stop Date: 07/21/22 Status: OrderedStart: 03-14-2019 End: 44-22-0386mvlf 1 capsule by mouth every twelve hoursCephalexin (Keflex) 500 mg capsule Discontinued 500 MG PO Q12H 14 March 14, 2019 12:00am August 04, 2019 8:18amcyclobenzaprine hydrochloride 5 mg oral tablet (20 sources)Muscle RelaxantStart: 12-30-2024 End: 84-29-1359jzww 1 tablet by mouth in the morning, then take 1 tablet by mouth in the evening, then take 1 tablet by mouth at bedtimecyclobenzaprine (Flexeril) 5 MG tablet Indications: Chronic right shoulder pain , Scapular dyskinesis Take 1 tablet (5 mg) by mouth in the morning and 1 tablet (5 mg) in the evening and 1 tablet (5 mg) before bedtime. Do all this for 10 days. 30 tablet 12/30/2024 01/09/2025 ActiveStart: 05-01-2023 End: 23-27-6284balf 1 tablet by mouth at bedtime as neededcyclobenzaprine (FLEXERIL) 5 mg tablet Indications: Dysmenorrhea , Chronic pelvic pain in female Take 1 tablet by mouth at bedtime as needed. 30 tablet 1 05/01/2023 ActiveStart: 85-45-5942ddya 1 tablet by mouth three times daily as needed for muscle spasms cyclobenzaprine 10 mg Tab 10 mg = 1 tab(s), Oral, TID, PRN for spasm, # 30 tab(s), Refills(s) 0, [facility]: [facility], 157, cm, 01/23/22 7:20:00 EST, Height/Length Dosing, 55, kg, 01/23/22 7:20:00 EST, Weight Dosing Start Date: 01/23/22 Status: Ordered Quantity: 30.0 Unit: tab(s) Repeat number: 1 Comment on above:Take 1 tablet by mouth at bedtime as needed.cyproheptadine hydrochloride 4 mg oral tablet (10 sources)Start: 98-25-7870fjsp 1 mg by mouth three times dailycyproheptadine 4 mg Tab mg tab(s), Oral, TID, Refills(s) 0 Start Date: 02/02/21 Status: Ordered Repeat number: 1Dasetta oral tablet (1 source)Start: 10-36-8458zqcl 1 tablet by mouth once dailyDasetta oral tablet 1 tab(s), Oral, Daily, Refill(s) 0, control/menstrual regulation Start Date: 11/23/16 Status: Ordereddocusate sodium 100 mg oral capsule (7 sources)Start: 11-30-2022 End: 27-59-4088ijkd 1 capsule by mouth twice daily as needed for constipation Docusate Sodium (DSS) 100 MG capsule Take 1 capsule (100 mg) by mouth 2 times daily as needed for constipation (Vaginal Delivery) for up to 10 days. 60 capsule 0 12/01/2022 12/31/2022 ActiveStart: 07-14-2022 End: 96-93-8377ylsn 1 capsule by mouth twice dailyColace 100 mg Cap 100 mg = 1 cap(s), Oral, BID, X 10 day(s), # 20 cap(s), Refills(s) 0 Start Date: 07/14/22 Stop Date: 07/24/22 Status: Orderedelagolix 150 mg oral tablet (13 sources)Start: 07-16-2023 End: 64-07-5148pdxt 1 tablet by mouth once dailyelagolix (ORILISSA) 150 mg tablet Take 1 tablet (150 mg) by mouth once daily. 30 tablet 11 07/16/2023 07/15/2024 ActiveStart: 79-99-3237axqm 1 tablet by mouth twice dailyOrilissa 200 MG Oral Tablet take 1 tablet by mouth twice a day Quantity: 60 Refills: 4 Ordered: 09-Feb-2022 Charlene Rodriguez DO Start : 09-Feb-2022 ActiveComment on above:Take 1 tablet (150 mg) by mouth once daily.ergocalciferol 0.05 mg oral capsule (1 source)Provitamin D2 CompoundStart: 25-51-2517Dlqgemq D2 2000 intl units oral capsule Oral, Daily, Refills(s) 0 Start Date: 02/02/21 Status: OrderedEthinyl Estradiol / Levonorgestrel (8 sources)Progestin, Estrogen, Progestin-containing Intrauterine DeviceStart: 04-03-2024 End: 76-66-6859baqyvwmgpjtvty-ethinyl estradiol (Jolessa) 0.15-0.03 MG tablet Indications: Uses control TAKE1 TABLET BY MOUTH EVERY MORNING 91 tablet 3 04/03/2024 08/18/2024 Discontinued (Other)Start: 42-53-8837cfdyjuhqmgjyxt- ethinyl estradiol (Jolessa) 0.15-0.03 MG tablet Indications: Uses control TAKE1 TABLET BY MOUTH EVERY MORNING 91 tablet 3 04/03/2024 ActiveStart: 01-10-2024 End: 23-50-4398rmij 1 tablet by mouth in the morning, then take 1 tablet by mouth once dailylevonorgestrel-ethinyl estradiol (Jolessa) 0.15-0.03 MG tablet Indications: Uses control Take1 tablet by mouth in the morning. Take 1 tablet by mouth daily. 90 tablet 0 01/10/2024 04/09/2024 Activeethinyl estradiol 0.035 mg / norgestimate 0.25 mg oral tablet (4 sources)Progestin, EstrogenStart: 11-69-4230bbbewpjjcicg-ethinyl estradiol (Ortho-Cyclen) 0.25-35 MG-MCG tablet 1 (one) time each day at the same time. 0 01/15/2023 ActiveStart: 95-13-3945szez 1 tablet by mouth once dailyNorgestimate- Ethinyl Estradiol 0.25-35 mg-mcg tablet Active 1 TAB PO Daily August 04, 2019 12:00amMono-Linyah 0.25-35 MG-MCG Oral for 28 Not-TakinghydrOXYzine hydrochloride 25 mg oral tablet (10 sources)AntihistamineStart: 09-12-3078qyww 1 mg by mouth four times daily hydrOXYzine hydrochloride 25 mg Tab mg tab(s), Oral, QID, Refills(s) 0 Start Date: 02/02/21 Status: Ordered Repeat number: 1hyoscyamine sulfate 0.125 mg oral tablet (10 sources)Start: 45-43-8346nlgi 1 tablet by mouth every six hoursLevsin 0.125 mg SL Tab 0.125 mg = 1 tab(s), Oral, q6hr, # 20 tab(s), Refills(s) 1, Pharmacy: [facility], 161, cm, 03/10/21 11:21:00 EDT, Height/Length Dosing, 56, kg, 03/10/21 11:21:00 EDT, Weight Dosing Start Date: 03/10/21 Status: Ordered Quantity: 20.0 Unit: tab(s) Repeat number: 2ibuprofen 600 mg oral tablet (15 sources)Nonsteroidal Anti-inflammatory DrugStart: 01-23-2022 End: 60-40-2122zssf 1 tablet by mouth every six hoursibuprofen 600 mg Tab 600 mg = 1 tab(s), Oral, q6hr, # 40 tab(s), Refills(s) 0, [facility]: [facility], 157, cm, 01/23/22 7:20:00 EST, Height/Length Dosing, 55, kg, 01/23/22 7:20:00 EST, WeightDosing Start Date: 01/23/22 Status: Ordered Quantity: 40.0 Unit: tab(s) Repeat number: 1insulin glargine-yfgn (Semglee-yfgn) 100 UNIT/ML pen (2 sources)Start: 64-05-4859mkylann glargine-yfgn (Semglee-yfgn) 100 UNIT/ML pen Inject 13 Units under the skin at bedtime 09/15/2025 Activeinsulin glargine-yfgn 100 unit/mL (3 mL) insulin pen (8 sources)Start: 91-84-6241qroczpb glargine-yfgn 100 unit/mL (3 mL) insulin pen Indications: Essential hypertension affecting in third trimester Prime with 2 units and give 5 units every morning and 17 units subQ at bedtime. 15 mL 3 09/17/2025 ActiveStart: 09-15-2025 End: 73-56-7632tlthvwv glargine-yfgn 100 unit/mL (3 mL) insulin pen Indications: Essential hypertension affecting in third trimester Prime with 2 units and give 17 units subQ at bedtime. 15 mL 3 09/15/2025 09/17/2025 Discontinued Start: 44-65-7969qwrhcln glargine-yfgn 100 unit/mL (3 mL) insulin pen Indications: Essential hypertension affecting in third trimester Prime with 2 units and give 17 units subQ at bedtime. 15 mL 3 09/15/2025 ActiveStart: 09-10-2025 End: 97-76-6006bmpdnnq glargine-yfgn 100 unit/mL (3 mL) insulin pen Indications: Essential hypertension affecting in third trimester Prime with 2 units and give 13 units subQ at bedtime. 15 mL 3 09/10/2025 09/15/2025 Discontinued Start: 71-19-2230ftjolei glargine-yfgn 100 unit/mL (3 mL) insulin pen Indications: Essential hypertension affecting in third trimester Prime with 2 units and give 13 units subQ at bedtime. 15 mL 3 09/10/2025 ActiveStart: 09-04-2025 End: 17-84-4242utixbs 2 [IU] by subcutaneous injection once, then inject 10 [IU] by subcutaneous injection at bedtimeinsulin glargine-yfgn 100 unit/mL (3 mL) insulin pen Indications: Diet controlled gestational diabetes mellitus (GDM) in second trimester , Essential hypertension affecting in third trimester Prime with 2 units and give 10 units subQ at bedtime. 15 mL 3 09/04/2025 09/10/2025 DiscontinuedStart: 13-91-7056yqwglb 2 [IU] by subcutaneous injection once, then inject 10 [IU] by subcutaneous injection at bedtimeinsulin glargine- yfgn 100 unit/mL (3 mL) insulin pen Indications: Diet controlled gestational diabetes mellitus (GDM) in second trimester , Essential hypertension affecting in third trimester Prime with 2 units and give 10 units subQ at bedtime. 15 mL 3 09/04/2025 Activeisopropyl alcohol 0.7 ml/ml medicated pad (14 sources)Start: 15-69-9612Bubmdos Swabs (Alcohol Prep Pad) 70 % pads Indications: Gestational diabetes mellitus (GDM), antepartum, gestational diabetes method of control unspecified ([facility]) , Elevated glucose tolerance testApply 1 Pad topically Daily Use four times daily to check FSBS. 150 each 3 08/20/2025 Activeiv contrast (will be provided with radiology test) (12 sources)Start: 79-76-1536hh contrast (will be provided with radiology test) [...] administration guidelines link. 1 Each 0 05/17/2023 ActiveComment on above:MRI Female Pelvis Inject, intravenously, once for 1 dose. No IV access, insert saline lock prior tothe beginning of sedation, infusion, injection of imaging exam. Discontinue saline lock post exam. If Pt has a central line or IVAD, may access for administration according to line specific nursing protocol. Once exam is complete flush line and de-access according to line specific nursing protocol in the MR contrast administration guidelines link.labetalol hydrochloride 200 mg oral tablet (20 sources)beta-Adrenergic BlockerStart: 38-80-9928qqem 1 tablet by mouth in the morninglabetalol (Normodyne) 200 MG tablet Indications: Gestational Hypertension Take 1 tablet (200 mg) bymouth in the morning and 1 tablet (200 mg) before bedtime. 60 tablet 3 09/03/2025 ActiveStart: 07-30-2025 End: 99-45-8049nmkz 1 tablet by mouth in the morninglabetalol (Normodyne) 100 MG tablet Indications: Hypertension, unspecified type Take 1 tablet (100 mg) by mouth in the morning and 1 tablet (100 mg) before bedtime. 60 tablet 5 07/30/2025 09/03/2025 DiscontinuedStart: 11-28-2022 End: 39-92-8731iiplpkzni (Normodyne,Trandate) injection 20 mgStart: 11-28-2022 End: 70-30-1229gindhrfsc (Normodyne,Trandate) injection 20 mgStart: 11-28-2022 End: 83-71-3295ycqtrbyzc (Normodyne,Trandate) 5 MG/ML injection - Pyxis ADS Override Pulltake 2 tablets by mouth three times dailylabetaloL (NORMODYNE) 100 mg tablet Take 2 tablets (200 mg total) by mouth 3 (three) times a day. Active magnesium oxide 400 mg oral tablet (9 sources)Start: 05-01-2025 End: 11-35-2235bkzr 1 tablet by mouth once dailymagnesium oxide (Mag-Ox) 400 MG tablet Indications: headache in first trimester ([facility])Take 1 tablet (400 mg) by mouth Daily 30 tablet 3 05/01/2025 05/31/2025 Activemeloxicam 15 mg oral tablet (15 sources)Nonsteroidal Anti-inflammatory DrugStart: 02-02-2021 End: 02-66-1673ipqy 1 tablet by mouth once dailymeloxicam (Mobic) 15 MG tablet Indications: Chronic right shoulder pain , Scapular dyskinesis Take 1 tablet (15 mg) by mouth Daily 30 tablet 3 12/30/2024 05/01/2025 Cltcrrbutpcp31 hr metoprolol succinate 25 mg extended release oral tablet (20 sources)beta-Adrenergic BlockerStart: 10-15-2024 End: 13-31-0568ezkr 1 tablet by mouth once dailymetoprolol succinate XL (Toprol- XL) 25 MG 24 hr tablet Indications: Hypertension, unspecified type Take 1 tablet by mouth daily 90 tablet 1 12/30/2024 ActiveStart: 04-58-5423qwhy 1 tablet by mouth once dailymetoprolol succinate XL (Toprol-XL) 25 MG 24 hr tablet Indications: Hypertension, unspecified type (CMS/HCC) Take 1 tablet by mouth daily 90 tablet 1 04/23/2024 ActiveStart: 07-80-5646mudb 1 tablet by mouth once dailymetoprolol succinate XL (Toprol-XL) 25 MG 24 hr tablet Indications: Hypertension, unspecified type (CMS/HCC) Take 1 tablet by mouth daily 90 tablet 1 10/23/2023 ActiveStart: 02-27-2023 End: 84-50-5867jzlyvfypvs succinate ER (TOPROL XL) 25 mg 24 hr tabletnaproxen 500 mg delayed release oral tablet (20 sources)Nonsteroidal Anti-inflammatory DrugStart: 01-38-4392cwnx 1 tablet by mouth twice dailynaproxen 500 mg oral enteric coated tablet 500 mg = 1 tab(s), Oral, BID, # 28 tab(s), Refills(s) 0 Start Date: 11/07/21 Status: Ordered Quantity: 28.0 Unit: tab(s) Repeat number: 1Start: 03-04-2021 End: 79-00-0768roaa 1 tablet by mouth twice dailynaproxen 500 mg Tab 500 mg = 1 tab(s), Oral, BID, Take one tab by mouth two times a day, # 14 tab(s), Refills(s) 0, Pharmacy: [facility], 157, cm, 03/04/21 7:22:00 EDT, Height/Length Dosing,52, kg, 03/04/21 7:22:00 EDT, Weight Dosing Start Date: 03/04/21 Status: Ordered Quantity: 14.0 Unit:tab(s) Repeat number: 1Start: 11-02-2018 End: 68-44-5443bxlg 1 tablet by mouth twice daily as needed for painNaproxen (Naprosyn) 500 mg tablet Discontinued 500 MG PO Twice daily as needed for pain 2017 1:00am March 12, 2019 6:15am administer with food or milk Comment on above:Take 1 tablet by mouth twice daily as needed. for pain. Take with food.NIFEdipine 30 mg osmotic 24 hr extended release oral tablet (5 sources)Dihydropyridine Calcium Channel BlockerStart: 11-28-2022 End: 87-84-2391CVGKrbpyrx XL (Procardia XL) 30 MG 24 hr tablet Take 1 tablet (30 mg) by mouth daily. Do not crush,chew, or split. Do not start before December 02, 2022. 90 tablet 0 12/02/2022 12/02/2023 Activenorethindrone acetate 5 mg oral tablet (20 sources)Start: 05-17-2023 End: 62-34-4648yxyd 2 tablets by mouth once dailynorethindrone (AYGESTIN) 5 mg tablet Take 2 tablets by mouth once daily. 60 tablet 5 01/03/2024 07/01/2024 ActiveStart: 04-11-2023 End: 31-58-4488kgwg 1 tablet by mouth once dailynorethindrone (AYGESTIN) 5 mg tablet Take 1 tablet by mouth once daily. 30 tablet 11 04/11/2023 ActiveStart: 60-61-9405jakp 1 tablet by mouth once dailyNorethindrone Acetate 5 MG Oral Tablet TAKE 1 TABLET DAILY. Quantity: 1 Refills: 0 Ordered: 21-Jul-2020 Charlene Rodriguez DO Start : 21-Jul-2020 ActiveComment on above:Take 1 tablet by mouth once daily.Take 2 tablets by mouth once daily.PNV no.95-ferrous fumarate-FA () 28 mg iron- 800 mcg tablet (9 sources)take 1 tablet by mouth in the morningPNV no.95-ferrous fumarate-FA () 28 mg iron- 800 mcg tablet Take 1 tablet by mouth in the morning. Activepramoxine hydrochloride 10 mg/ml rectal foam (2 sources)Start: 07-14-2022 End: 27-34-8622yqpd 15 g rectal route twice dailyProctoFoam 1% Foam apply, Rectal, BID for 7 day(s), 15 gm, Refill(s) 0 Start Date: 07/14/22 Stop Date: 07/21/22 Status: OrderedPrenatal Multivitamins with Vitamin B Complex, Vitamin C, Minerals and L-Methylfolate oral capsule (9 sources)Start: 49-89-5843Axhyamps Multivitamins with Vitamin B Complex, Vitamin C, Minerals and L-Methylfolate oral capsule 1 cap(s), Oral, Daily, 30 cap(s), Refill(s) 0 Start Date: 07/14/22 Status: Ordered Quantity: 30.0 Unit: cap(s) Repeat number: 1Start: 20-52-4234Sdoqioje Multivitamins with Vitamin B Complex, Vitamin C, Minerals and L-Methylfolate oral capsule 1 cap(s), Oral, Daily, 30 cap(s), Refill(s) 0 Start Date: 07/14/22 Status: OrderedPrenatal Vit-Fe Fumarate-FA ( Vitamin) 27-0.8 MG tablet (3 sources) Vit-Fe Fumarate-FA ( Vitamin) 27-0.8 MG tablet Take by mouth. 0 ActivePrenatal Vit-Fe Fumarate-FA ( Vitamins) 28-0.8 MG tablet (20 sources)Start: 05-01-2025 End: 25-24-7061vdjl 1 tablet by mouth once dailyPrenatal Vit-Fe Fumarate-FA ( Vitamins) 28-0.8 MG tablet Indications: , unspecified gestational age ([facility]) , Encounter for supervision of normal first in first trimester([facility]) Take 1 tablet by mouth Daily 30 tablet 11 05/01/2025 05/01/2026 ActiveStart: 05-01-2025 End: 38-31-9795kikl 1 tablet by mouth once dailyPrenatal Vit-Fe Fumarate-FA ( Vitamins) 28-0.8 MG tablet Indications: , unspecified gestational age , Encounter for supervision of normal first in first trimester Take 1 tablet by mouth Daily 30 tablet 11 05/01/2025 05/01/2026 Active SUMAtriptan 100 mg oral tablet (10 sources)Serotonin-1b and Serotonin-1d Receptor AgonistStart: 62-59-5680rhvy 1 mg by mouth onceImitrex 100 mg Tab mg tab(s), Oral, Once, Refills(s) 0 Start Date: 02/02/21 Status: Ordered Repeat number: 1Surgical Lubricant Jelly gel (12 sources)Start: 62-95-2983Owbmathu Lubricant Jelly gel For MRI Female Pelvis, MRI department to provide. Administer intra-vaginal Surgilube immediately prior the MRI procedure (total amount to patient toleranace). 1 g 0 05/17/2023 Active Comment on above:For MRI Female Pelvis, MRI department to provide. Administer intra-vaginal Surgilube immediately prior the MRI procedure (total amount to patient toleranace).tiZANidine 4 mg oral tablet (3 sources)Central alpha-2 Adrenergic AgonistStart: 39-75-1847alnd 1 mg by mouth every eight hourstiZANidine 4 mg Tab mg tab(s), Oral, q8hr, Refills(s) 0 Start Date: 02/02/21 Status: OrderedtraMADol hydrochloride 50 mg oral tablet (10 sources)Opioid AgonistStart: 24-65-6568limd 1 tablet by mouth every four hours as needed for paintraMADol (ULTRAM) 50 mg tablet Indications: Pelvic pain in female Take 1 tablet by mouth every 4 hours as needed for pain. 20 tablet 0 08/30/2023 ActiveStart: 93-06-9727wzid 1 tablet by mouth every six hourstraMADol HCl - 50 MG Oral Tablet TAKE 1 TABLET Every 6 hours Quantity: 20 Refills: 0 Ordered: 18-Aug-2020 Charlene Rodriguez DO Start : 18-Aug-2020 ActiveStart: 03-12-2019 End: 25-25-1205yzoi 1 tablet by mouth every four hours as needed for pain Tramadol 50 mg tablet Discontinued 50 MG PO Q4H as needed for pain 30 March 12, 2019 12:00am August 04, 2019 8:19amComment on above:Take 1 tablet by mouth every 4 hours as needed for pain.Vitamin D2 2000 intl units oral capsule (9 sources)Start: 50-24-2355wcos 1 capsule by mouth once dailyVitamin D2 2000 intl units oral capsule Oral, Daily, Refills(s) 0 Start Date: 02/02/21 Status: Ordered Repeat number: 1Start: 09-96-2471Kqygxzl D2 2000 intl units oral capsule Oral, Daily, Refills(s) 0 Start Date: 02/02/21 Status: Ordered Completed/Discontinued Medications MedicationDrug Class(es)DatesSig (Normalized)Sig (Original)acetaminophen 325 mg oral tablet (4 sources)Start: 11-30-2022 End: 46-05-6354xign 1 tablet by mouth every six hours as needed for ejqb950 mg, Oral, Every 6 hours PRN, mild pain (1-3), Starting on [place] 11/30/22 at 0422 Give in addition to any other pain medication ordered at same time for any pain indication. Maximumdose of acetaminophen is 4000 mg from all sources in 24 hours. Alternate ibuprofen and acetaminophen every 3 hours.Start: 11-28-2022 End: 21-02-2304pblajhdrogoeb (Tylenol) tablet 1,000 mgacetaminophen 300 mg / codeine phosphate 30 mg oral tablet (4 sources)Opioid AgonistStart: 01-19-2025 End: 26-96-1180nexv 1 tablet by mouth every six hours for painacetaminophen- codeine (Tylenol w/ Codeine #3) 300-30 MG tablet Indications: Pain in female genitalia on intercourse , Endometriosis Take 1 tablet by mouth every 6 (six) hours if needed for severe pain for up to 5 days 20 tablet 01/19/2025 01/24/2025 ExpiredStart: 07-22-2024 End: 93-24-6492imoj 1 tablet by mouth every six hours for painacetaminophen- codeine (Tylenol w/ Codeine #3) 300-30 MG tablet Indications: Dysmenorrhea, unspecified Take 1 tablet by mouth every 6 (six) hours if needed for severe pain for up to 5 days 20 tablet 07/22/2024 07/27/2024 Activeascorbic acid 500 mg oral tablet (5 sources)Vitamin CStart: 10-25-2018 End: 82-83-1412icdo 2 tablets by mouth in the morningASCORBIC ACID WITH ISAURO HIPS 500 MG tablet Take 2 tablets (1,000 mg total) by mouth in the morning.0 10/25/2018 09/04/2025 Discontinued ()aspirin 325 mg / butalbital 50 mg / caffeine 40 mg oral capsule (11 sources)Platelet Aggregation Inhibitor, Barbiturate, Nonsteroidal Anti- inflammatory Drug, Central Nervous System Stimulant, Methylxanthine End: 82-32-6844thlg 1 capsule by mouth every four hours as needed iqvplobqve-ntytarw-pajiafmg (Fiorinal) 50-325-40 MG capsule Take 1 capsule by mouth every 4 (four) hours if needed 09/16/2025 Discontinuedatropine sulfate 0.0194 mg / hyoscyamine sulfate 0.1037 mg / PHENobarbital 16.2 mg / scopolamine hydrobromide 0.0065 mg oral tablet (1 source)Anticholinergic, Cholinergic Muscarinic AntagonistStart: 05-27-2020 take 1 tablet by mouth every eight hoursDonnatal 16.2 MG 1 tablet Orally Three times a day for 30 day(s) May, Not-Takingbenzethonium chloride 2 mg/ml / benzocaine 200 mg/ml topical spray (2 sources)Standardized Chemical AllergenStart: 11-30-2022 End: 76-20-3361Slashqa, As needed, pain, , Starting on Sun11/30/22 at 0608, Apply to perineal area. Patient is capable and may self administer at bedside.betamethasone 3 mg/ml / betamethasone acetate 3 mg/ml injectable suspension (2 sources)CorticosteroidStart: 11-28-2022 End: 83-99-6755aeggmumxnvmof acetate-betamethasone sodium phosphate (Celestone) injection 12 mgcalcium chloride 0.0014 meq/ml / potassium chloride 0.004 meq/ml / sodium chloride 0.103 meq/ml / sodium lactate 0.028 meq/ml injectable solution (2 sources)Start: 11-28-2022 End: 57-03-9173cwtx 125 mL intravenously every bxrj587 mL/hr, IntraVENous, Continuous, Starting on Sun11/28/22 at 0100, Pre-Deliverycetirizine hydrochloride 10 mg oral tablet (17 sources)Histamine-1 Receptor AntagonistStart: 06-09-2025 End: 46-08-4788ivah 1 tablet by mouth once dailycetirizine (ZyrTEC ALLERGY) 10 MG tablet Indications: Allergy, sequela Take 1 tablet (10 mg) by mouth Daily 30 tablet 06/09/2025 07/15/2025 DiscontinuedchlordiazePOXIDE hydrochloride 5 mg / clidinium bromide 2.5 mg oral capsule (1 source)Anticholinergic, BenzodiazepineStart: 77-71-8015xslt 1 capsule by mouth every eight hourschlordiazePOXIDE-Clidinium 5-2.5 MG 1 capsule before meals Orally Three times a day for 30 day(s) May, Not-Taking chlorhexidine gluconate 20 mg/ml medicated pad (2 sources)Start: 11-28-2022 End: 12-92-3065ivfph 1 dose topically every six hoursTopical, Every 6 hours, First dose on Sun11/28/22 at 0100, Pre-Delivery Apply to the affected area.&a mp;nbsp; Clean entire abdomen.cholecalciferol 0.125 mg oral capsule (5 sources)Vitamin DStart: 10-25-2018 End: 16-09-5049krxx 1 capsule by mouth in the morningcholecalciferol, vitamin D3, (VITAMIN D3) 5,000 units capsule Take 1 capsule (5,000 Units total) bymouth in the morning. 0 10/25/2018 09/04/2025 Discontinued ()desogestrel 0.15 mg / ethinyl estradiol 0.03 mg oral tablet (11 sources)Progestin, EstrogenStart: 07-22-2024 End: 58-80-3820zgkzwvdxqyi-ethinyl estradiol (Apri) 0.15-30 MG-MCG tablet Indications: Dysmenorrhea, unspecified Take 1 tablet by mouth Daily 21 tablet 12 10/20/2024 01/19/2025 Discontinued (Other)diphenhydrAMINE (BENADryl) injection 25 mg (2 sources)Start: 11-30-2022 End: 28-27-6651rcxi 25 mg intravenously every six hours as neededdiphenhydrAMINE (BENADryl) injection 25 mgNorethindrone-E.Estradiol-Iron (1 source)EstrogenStart: 10-17-2017 End: 65-39-5058susm 1 tablet by mouth once dailyNorethindrone-E.Estradiol-Iron (Lo Loestrin Fe) 1 mg-10 mcg (24)/10 mcg (2) tablet Discontinued 1 TAB PO Daily October 17, 2017 1:00am March 12, 2019 6:15amEthinyl Estradiol / Norethindrone (7 sources)EstrogenStart: 12-01-2018 End: 22-24-1980nium 0.05 ug by mouth once in the eveningnorethindrone ac-eth estradiol (MICROGESTIN 1/20) 1-20 mg-mcg per tablet Take 1 tablet by mouth in t he evening. 0 12/01/2018 09/04/2025 Discontinued ()Start: 12-01-2018 take 0.05 ug by mouth once in the eveningnorethindrone ac-eth estradiol (MICROGESTIN 1/20) 1-20 mg-mcg per tablet Take 1 tablet by mouth in the evening. 0 12/01/2018 ActiveStart: 12-28-3368cexf 1 tablet by mouth once dailyDasetta oral tablet 1 tab(s), Oral, Daily, Refill(s) 0, control/menstrual regulation Start Date: 11/23/16 Status: Orderedfamotidine 20 mg oral tablet (2 sources)Histamine-2 Receptor AntagonistStart: 11-30-2022 End: 26-01-7727cjan 20 mg by mouth twice daily as needed for gastroesophageal reflux anrlxne18 mg, Oral, 2 times daily PRN, heartburn, Starting on Constance 11/30/22 at 0608, Renal dose per pharmacy for peptic ulcer prophylaxis.ferrous sulfate 325 mg oral tablet (8 sources)Start: 11-30-2022 End: 81-45-1940bbux 325 mg by mouth twice daily at kxvqerfq199 mg, Oral, 2 times daily with meals, First dose on Constance 11/30/22 at 0800, Start if Hgb le ss than 10. End: 63-52-0684yknd 1 tablet by mouth in the morningFerrous Sulfate (IRON PO) Take 1 tablet by mouth in the morning. 09/16/2025 Discontinuedtake 1 tablet by mouth in the morningFerrous Sulfate (IRON PO) Take 1 tablet by mouth in the morning. ActiveFLUoxetine 20 mg oral capsule (17 sources)Serotonin Reuptake InhibitorStart: 24-21-3129tuke 1 capsule by mouth once dailyFLUoxetine HCl - 20 MG Oral Capsule TAKE 1 CAPSULE Daily Quantity: 30 Refills: 11 Ordered: 02-Jun-2021 Charlene Rodriguez DO Start : 02-Jun-2021 Active Start: 11-02-2018 End: 09-43-8003balm 1 capsule by mouth once dailyFluoxetine (Prozac) 20 mg capsule Discontinued 20 MG PO Daily November 02, 2018 1:00am August 04, 2019 8:19amtake 1 capsule by mouth once dailyFLUoxetine (PROZAC) 10 mg capsule Take 10 mg by mouth once daily. 0 ActiveComment on above:Take 10 mg by mouth once daily.fluticasone propionate 0.05 mg/actuat metered dose nasal spray (16 sources)CorticosteroidStart: 06-22-2025 End: 47-99-8106ptnw 1 spray(s) nasal route once dailyfluticasone (Flonase) 50 MCG/ACT nasal spray Indications: Sinusitis, unspecified chronicity, unspecified location Administer 1 spray into each nostril Daily Shake gently. Before first use, prime pump. After use, clean tip and replace cap. 16 g 12 06/22/2025 07/15/2025 Discontinued End: 88-85-0963bfkh 1 spray(s) nasal route in the morningfluticasone (Flonase) 50 MCG/ACT nasal spray Administer 1 spray into affected nostril(s) in the morn ing. 09/16/2025 Discontinued End: 57-72-4781wnah 1 spray(s) nasal route in the morningfluticasone propionate (FLONASE) 50 mcg/actuation nasal spray Administer 1 spray into each nostril in the morning. 09/04/2025 Discontinued ()lanolin 1000 mg/ml topical cream (2 sources)Start: 11-30-2022 End: 14-30-0298Bbiatwn, As needed, dry skin, nipple discomfort, Starting on Constance 11/30/22 at 0608, Apply to affected area.500 ml magnesium sulfate 40 mg/ml injection (4 sources)Start: 11-28-2022 End: 87-31-5506jzrasnkec sulfate 20 GM/500ML infusionStart: 11-28-2022 End: 34-96-9750byrdwhzfj sulfate 20 GM/500ML infusion - Pyxis ADS Override Pull metoclopramide 10 mg oral tablet (2 sources)Dopamine-2 Receptor AntagonistStart: 72-03-8885styq 1 tablet by mouth every eight hoursReglan 10 MG 1 tablet before meals Orally tid for 30 day(s) March, Not-TakingmiSOPROStol 0.2 mg oral tablet (2 sources)Prostaglandin E1 AnalogStart: 11-30-2022 End: 61-51-6360oyUBSEZJdov (Cytotec) tablet 1,000 mcgStart: 11-30-2022 End: 02-26-8393zeNIXOUHupr (Cytotec) tablet 1,000 mcgmiSOPROStol (Cytotec) split tablet 25 mcg (2 sources)Start: 11-28-2022 End: 94-54-9054aqdk 1 tablet vaginal route every four hoursmiSOPROStol (Cytotec) split tablet 25 mcg1 ml morphine sulfate 4 mg/ml injection (4 sources)Opioid AgonistStart: 11-28-2022 End: 43-76-3915isdmmlfi sulfate (PF) injection 4 mgnitrofurantoin, macrocrystals 25 mg / nitrofurantoin, monohydrate 75 mg oral capsule (6 sources)Nitrofuran AntibacterialStart: 92-47-7085Kgjqwmooukxykm Monohyd Macro 100 MG Oral Capsule TAKE 1 CAPSULE Other Please take one capsule aftersexual intercourse to prevent UTI Quantity: 30 Refills: 11 Ordered: 01-Apr-2021 Teri Chau MD Start : 01-Apr-2021 Active2 ml ondansetron 2 mg/ml injection (12 sources)Serotonin-3 Receptor AntagonistStart: 11-29-2022 End: 82-89-5201iefv 4 mg intravenously every six hours as needed for nausea and vomitingondansetron (Zofran) injection 4 mgStart: 14-28-7220fcbm 1 tablet by mouth every six hours as needed for nauseaZofran 4 mg Tab 1 tab(s), Oral, q6hr, PRN Nausea, # 8, Refills(s) 0 Start Date: 07/14/22 Status: Ordered Quantity: 8.0 Unit: Repeat number: 1Start: 22-19-5039dicm 1 tablet by mouth three times daily Zofran 4 MG 1 tablet Orally THREE TIMES A DAY for 30 day(s) May, Not-Takingondansetron ODT (Zofran-ODT) disintegrating tablet 4 mg (2 sources)Start: 11-30-2022 End: 35-43-7536zzav 1 tablet by mouth every eight hours as needed for nausea and vomitingondansetron ODT (Zofran-ODT) disintegrating tablet 4 mgoxytocin (Pitocin) 30 units in 500 mL infusion (8 sources)Start: 11-30-2022 End: paulo-units/min (125 mL/hr), IntraVENous, Continuous, Starting on Constance 11/30/22 at 0430 For Immediate Post Use Only. Give after delivery of placenta and initial 30 unit bolus. Bag 2 of 2: 125cc/hr (125 mu/min) for an additional infusion of 500cc (30 units).Start: 11-30-2022 End: Units, IntraVENous, at 30 mL/hr, Continuous, Starting on Constance 11/30/22 at 0430 Post- use ONLYafter delivery of baby/ excessive bleeding/ uterine atony. Bag 1 of 2: Bolus for bag to infuse at 999 ml/hour for 15 minutes (15 units in 250cc). After initial bolus then decrease rate to 250cc/hr for 1 hour. Then discontinue.Start: 11-29-2022 End: 66-14-6033yqjaadjv (Pitocin) 30 units in 500 mL infusionStart: 11-29-2022 End: 84-57-5119htqpklzw (Pitocin) 30 units in 500 mL infusionphenazopyridine hydrochloride 200 mg oral tablet (10 sources)Start: 31-79-2847viil 1 tablet by mouth three times dailyPyridium 200 mg Tab 200 mg = 1 tab(s), Oral, TID, Take one tab by mouth three times a day for threedays, # 9 tab(s), Refills(s) 0, [facility] [place], cm, 03/04/21 7:22:00 EDT, Height/Length Dosing, 52, kg, 03/04/21 7:22:00 EDT, Weight Dosing Start Date: 03/04/21 Status: Ordered Quantity: 9.0 Unit: tab(s) Repeat number: 1predniSONE 10 mg oral tablet (3 sources)Start: 09-10-2023 End: 17-60-1714iuoe 2 tablets by mouth twice daily, then take 1 tablet by mouth twice daily, then take 1 tablet bymouth once dailypredniSONE (Deltasone) 10 MG tablet Indications: Plantar fasciitis Take 2 pills by mouth twice daily for 5 days, take 1 pill twice daily for 5 days then 1 pill once daily for 5 days. 35 tablet 0 09/10/2023 01/10/2024 Discontinued (Therapy completed)Start: 03-12-2019 End: 80-29-5193ruag 3 tablets by mouth once daily at mealtimePrednisone 20 mg tablet Discontinued 60 MG PO Daily 9 March 12, 2019 12:00am August 04, 2019 8:18am administer with food or milkpromethazine hydrochloride 12.5 mg oral tablet (13 sources)PhenothiazineStart: 05-25-2025 End: 73-20-6310dovq 1 tablet by mouth every six hours as needed for nausea and vomiting and headache and headachepromethazine (Phenergan) 12.5 MG tablet Indications: Nonintractable episodic headache, unspecified headache type Take 1 tablet (12.5 mg) by mouth every 6 (six) hours if needed for nausea or vomiting f or up to 30 doses Take 1 tablet by mouth every 6 hours as needed for nausea. 30 tablet 2 508/ Discontinued End: 25-86-5254ftoj 12.5 mg rectal route every six hours as needed for nausea and vomitingpromethazine (PHENERGAN) 12.5 mg suppository Insert 1 suppository (12.5 mg total) into the rectum every 6 (six) hours as needed for nausea or vomiting. 09/04/2025 Discontinued ()rizatriptan 5 mg disintegrating oral tablet (5 sources)Serotonin-1b and Serotonin-1d Receptor AgonistStart: 10-24-2018 End: 45-08-5348obwinhqpadg UNDERWRITER (MAXALT-UNDERWRITER) 5 mg disintegrating tablet Dissolve 1 tablet (5 mg total) on tongue asneeded. 0 10/24/2018 09/04/2025 Discontinued ()5 ml sodium chloride 9 mg/ml injection (2 sources)Start: 11-28-2022 End: mL, IntraVENous, Every 12 hours scheduled (2 times per day), First dose on Sun11/28/22 at 0900, Pre-Deliveryvitamin b12 1 mg extended release oral tablet (5 sources)Vitamin Y30Ahxug: 10-25-2018 End: 91-96-1362igbg 1 tablet by mouth in the morningcyanocobalamin, vitamin B- 12, (VITAMIN B-12) 1,000 mcg tablet extended release Take 1 tablet (1 mg total) by mouth in the morning. 0 10/25/2018 09/04/2025 Discontinued ()witch yesi 500 mg/ml medicated pad (2 sources)Start: 11-30-2022 End: 09-50-1802Wncygvp, As needed, hemorrhoids, For perineal pain or discomfort, Starting on Sun11/30/22 at 0608, Apply to perineal area. Patient is capable and may self administer at bedside. Problems Active Problems Problem ClassificationProblemDateDocumented DateEpisodic/ChronicAllergic reactions (1 source)Allergic reaction; Translations: [Allergy, unspecified, initial encounter]61-72-4213QiyzhozwHuudhff on above:Problem List clean-up per request of Phys. EHR CmteAnxiety disorders (20 sources)Anxiety; Translations: [Anxiety state, unspecified]Onset: 10-08-2020 76-57-6652RauuwwlZsdalfo on above:Problem List clean-up per request of Phys. EHR CmteCardiac dysrhythmias (20 sources)Paroxysmal tachycardia; Translations: [Paroxysmal tachycardia, unspecified]Onset: 862498-35-3771WrkzkbwMchirhdastaow of surgical procedures or medical care (1 source)Postoperative retention of urine; Translations: [Other postprocedural complications and disorders of genitourinary system]44-09-0612InhzadyqRaqewwj on above:Problem List clean-up per request of Phys. EHR CmteDiabetes mellitus without complication (2 sources)Abnormal glucose tolerance test; Translations: [Other abnormal glucose]24-10-1928RrhhtpriXaintpsb or abnormal glucose tolerance complicating ; childbirth; or the puerperium (18 sources)Gestational diabetes mellitus; Translations: [Gestational diabetes mellitus in , diet controlled]Onset: 985087-35-2751Zjzfobrb Endometriosis (20 sources)Endometriosis (clinical); Translations: [Endometriosis, site unspecified]Onset: 33-93-4022JgieormFcuwkqzfe hypertension (20 sources)Hypertensive disorder; Translations: [Essential (primary) hypertension]Onset: 596040-92-1328EhshwffZderbvanlrgri symptoms and ill- defined conditions (20 sources)Microscopic hematuria; Translations: [Nocturia]52-31-6630Dzbmpizk Comment on above:Problem List clean-up per request of Phys. EHR CmteHeadache; including migraine (20 sources)Migraine; Translations: [Migraine, unspecified, not intractable, without status migrainosus]Onset: 437991-99-6842BgkmixxQxfkccd on above: Problem List clean-up per request of Phys. EHR CmteHeadache; including migraine (14 sources)Headache; Translations: [Headache, unspecified]Onset: 01-31-2023 91-72-1295HlysudzlQxupytubdgm (1 source)Hemorrhoids; Translations: [Unspecified hemorrhoids]Onset: 07-14-2022 EpisodicHypertension complicating ; childbirth and the puerperium (15 sources)Hypertension complicating ; Translations: [Unspecified maternal hypertension, unspecified trimester]Onset: hronic Hypertension complicating ; childbirth and the puerperium (14 sources)Severe pre-eclampsia complicating childbirth; Translations: [Severe pre-eclampsia, third trimester]Onset: 71-89-9585PbbhlqcgJedjw disorders and dislocations; trauma-related (20 sources)Disorder of left patellofemoral joint; Translations: [Patellofemoral disorders, left knee]Onset: 958079-19-2680EkjoelyXklol disorders and dislocations; trauma-related (20 sources)Disorder of right patellofemoral joint; Translations: [Patellofemoral disorders, right knee]Onset: hronic Menstrual disorders (20 sources)Dysmenorrhea; Translations: [Dysmenorrhea, unspecified]Onset: 408096-83-4482KcrqdabSvsqkq and vomiting (1 source)Nausea and vomiting; Translations: [Nausea with vomiting, unspecified] EpisodicNonspecific chest pain (2 sources)Chest pain; Translations: [Chest pain, unspecified]28-89-0572Mlztewjr Comment on above:Problem List clean-up per request of Phys. MIKAYLA CmteNutritional deficiencies (20 sources)Vitamin D deficiency; Translations: [Vitamin D deficiency, unspecified]Onset: 288056-63-3376YkismvzAgarm acquired deformities (20 sources)Scoliosis deformity of spine; Translations: [Scoliosis, unspecified] Onset: 018948-85-0710RaqdtcyKrcca bone disease and musculoskeletal deformities (10 sources)Disorder of tycm44-28-2008VvzsqxsqYngkfjp on above:right shoulder right shoulderOther circulatory disease (1 source)Elevated blood-pressure reading without diagnosis of hypertension; Translations: [Elevated blood-pressure reading, without diagnosis of hypertension]Onset: 62-70-2399NzlhzescMwiwv complications of ; puerperium affecting management of mother (1 source)Delayed AND/OR secondary hemorrhage; Translations: [Delayed and secondary hemorrhage]Onset: 49-81-0619LwhpjkztJxdyd complications of (1 source)Finding related to ; Translations: [Other specified related conditions, unspecified trimester]Onset: 58-35-3633QckwuymeByfqx complications of (1 source)Supervision of with other poor reproductive or obstetric history, unspecified trimester; Translations: [Supervision of with other poor reproductive or obstetric history, unspecified trimester]Onset: 26-87-0135OrjrhcfuTxymp connective tissue disease (1 source)Diastasis recti; Translations: [Separation of muscle (nontraumatic), other site]EpisodicOther female genital disorders (10 sources)Abnormal uterine sxwdaqlq60-82-6385UocohclFwmyo female genital disorders (1 source)Dyspareunia; Translations: [Other specified dyspareunia]ChronicOther female genital disorders (20 sources)Pain in female genitalia on intercourse; Translations: [Unspecified dyspareunia]Onset: 977727-72-1364CxqkgbfArzof female genital disorders (1 source)Unspecified dyspareunia; Translations: [Unspecified dyspareunia]Onset: 00-84-3325MzqbjaiVuril female genital disorders (2 sources)Pelvic floor dysfunction; Translations: [Other specified conditions associated with female genital organs and menstrual cycle]EpisodicOther gastrointestinal disorders (18 sources)Constipation; Translations: [Constipation, unspecified]Onset: 848676-74-2909KwtjwyylGbpymmm on above:Problem List clean-up per request of Phys. EHR CmteOther gastrointestinal disorders (1 source)Constipation, unspecified; Translations: [Constipation, unspecified] Onset: 68-31-7409DegeicwaSqmgu hereditary and degenerative nervous system conditions (20 sources)Finding of scapular structure; Translations: [Other specified extrapyramidal and movement disorders]Onset: 096702-80-7526IvysqtfVfauv nervous system disorders (9 sources)Chronic pain; Translations: [Other chronic pain]Onset: 03-29-2023 48-24-2654NyubddlRxcza nervous system disorders (1 source)Other chronic pain; Translations: [Chronic pelvic pain in female] Onset: 90-08-5006ZigluldFzfwc nervous system disorders (1 source)Paresthesia of left upper limb; Translations: [Paresthesia of skin] 08-75-4370OkjjudmvNoserci on above:Problem List clean-up per request of Phys. EHR CmteOther nervous system disorders (1 source)Tremor; Translations: [Tremor, unspecified]51-38-2554RcopqjwoGzfftkk on above:Problem List clean-up per request of Phys. EHR CmteOther nutritional; endocrine; and metabolic disorders (20 sources)Body mass index 30+ - obesity; Translations: [Obesity, unspecified] Onset: 428492-53-8361JnpucdjUfqcd and delivery including normal (16 sources); Translations: [Encounter for supervision of normal , unspecified, unspecified trimester]45-79-2755CfhaycmaArpui screening for suspected conditions (not mental disorders or infectious disease) (8 sources)Elevated liver enzymes level; Translations: [Other specified abnormal findings of blood chemistry]Onset: 04-18-2022 Resolved: 99-47-0323ZbnpksznWabzt upper respiratory disease (20 sources)Allergic rhinitis due to pollen; Translations: [Allergic rhinitis due to pollen]Onset: 014178-61-2653EpicevoTdfut upper respiratory infections (2 sources)Sinusitis; Translations: [Chronic sinusitis, unspecified]06-22-2025 ChronicResidual codes; unclassified (2 sources)Contraception ; Translations: [Other specified health status] 08-88-3136WjfryadqPirlddep codes; unclassified (2 sources)Gestation period, 13 weeks; Translations: [13 weeks gestation of ]11-03-9931InwauqqgYinnrrcs codes; unclassified (2 sources)Gestation period, 17 weeks; Translations: [17 weeks gestation of ]86-86-2942EuzkmswyUwfjmncn codes; unclassified (2 sources)Gestation period, 20 weeks; Translations: [20 weeks gestation of ]27-73-8526ZlcyyxhnEolcpzzw codes; unclassified (2 sources)Gestation period, 24 weeks; Translations: [24 weeks gestation of ]89-52-1412KytmdeveDmybkhhk codes; unclassified (2 sources)Gestation period, 26 weeks; Translations: [26 weeks gestation of ]07-42-7991FybzdvsiSiaojnzt codes; unclassified (2 sources)Gestation period, 27 weeks; Translations: [27 weeks gestation of ]00-87-4706LrvtrfeoKzcsgjod codes; unclassified (1 source)Gestation period, 28 weeks; Translations: [28 weeks gestation of ]87-09-5169CoymkwcwNldljxhl codes; unclassified (1 source)28 weeks gestation of ; Translations: [28 weeks gestation of ]Onset: 06-97-2845JbykmjfoKmoemlnd codes; unclassified (2 sources)Gestation period, 29 weeks; Translations: [29 weeks gestation of ]80-72-0991LsgqbzndWtlygmlfetn; intervertebral disc disorders; other back problems (20 sources)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; Translations: [Other cervical disc displacement, unspecified cervical region] Onset: 429318-10-4046XtzycnlTqqgxnynznpo (1 source)Gestational DiabetesOnset: 98-74-5658Vtbgkuyzzgtn (1 source)[facility] consultOnset: 99-46-9697Obedeig tract infections (20 sources)Recurrent urinary tract infection; Translations: [Urinary tract infection, site not specified]Onset: 444630-67-8956Ramdvvta Past or Other Problems Problem ClassificationProblemDateDocumented DateEpisodic/ChronicAbdominal pain (20 sources)Epigastric pain; Translations: [Epigastric pain]Onset: 07-14-2022 EpisodicAcquired foot deformities (20 sources)Acquired equinus deformity of foot; Translations: [Other acquired deformities of unspecified foot]Onset: 973281-23-2828MrzgptilPohwoeg dysrhythmias (20 sources)Tachycardia; Translations: [Tachycardia, unspecified]Onset: 767055-01-6605FfdkhlubShnbvcanvzw deficiencies (20 sources)Cobalamin deficiency; Translations: [Deficiency of other specified B group vitamins]Onset: 894397-05-5560RycuvejaWltrq connective tissue disease (20 sources)Posterior calcaneal exostosis; Translations: [Calcaneal spur, unspecified foot]Onset: 865346-75-1532UuduwaaqSjcmn disorders of stomach and duodenum (20 sources)Gastroparesis syndrome; Translations: [Gastroparesis]Onset: 669395-65-9742NfyuevkcXxvrz female genital disorders (1 source)Other specified conditions associated with female genital organs and menstrual cycle; Translations:[High-tone pelvic floor dysfunction]Onset: 92-57-4317IlaznemvGbzfk female genital disorders (14 sources)Chronic pelvic pain of female; Translations: [Chronic pelvic pain in female]Onset: 439482-95-0065KnvniweySmath gastrointestinal disorders (20 sources)Swallowing painful; Translations: [Dysphagia, unspecified]Onset: 333228-41-8994RsxmrjhfLzkkt gastrointestinal disorders (20 sources)Diarrhea; Translations: [Diarrhea, unspecified]Onset: 03-24-2025 06-79-4168UcvesvrvMwpui non-traumatic joint disorders (20 sources)Chronic pain of right upper limb; Translations: [Pain in right shoulder]Onset: 853281-85-3206OvzjrrbjEkalc nutritional; endocrine; and metabolic disorders (16 sources)Loss of appetite; Translations: [Anorexia]Onset: 05-27-2020 36-04-5136SkqniagiDnmzcdj (15 sources)Vasovagal syncope; Translations: [Syncope and collapse]Onset: [id number] (9 sources)PregnancyOnset: 07-14-2022 Resolved: [id number]: Highlighted row has been ruled out! Unclassified (1 source)No known active -[id number] Results Test NameValueInterpretationReference RangeFacilityUrinalysis macro (dipstick) panel (U)on 52-47-5919Ivhiqjqcr, UANegativeNegative - 4(70) +++ mg/dLNOMS HealthcareBlood, UANegativeNegative - 50 Teodoro/mcLNOMS HealthcareClarity, UAClear NOMS HealthcareColor, UAYellowNOMS HealthcareGlucose, UANegativeNegative - 2000(110) ++++ mg/dLNOMS HealthcareInterpretation and review of laboratory resultsNormGeisinger-Lewistown HospitalKetones, UANegativeNegative - 160(16) ++++ mg/dLAudrain Medical CenterLeukocytes, UANegativeNegative - 500+++ Robinson/mcLNOShriners Hospitals for ChildrenNitrite, UANegativeNegative - PositiveNOAZ HealthcarepH, UA6.05 - 9NOShriners Hospitals for Children Protein, UANegativeNegative - 2000(20) ++++ mg/dLAudrain Medical CenterSpec Grav, UA 1.0101 - 1.03NOShriners Hospitals for ChildrenUrobilinogen, UA1.00.2 - 12 mg/dLNOExcelsior Springs Medical Center HealthcareALL BUNon 39-75-8545Qzak nitrogen [Mass/Vol]8 mg/dL7.0 - 18.0 mg/dL [facility] URIC ACIDon 12-12-8734Rdlco [Mass/Vol]3.5 mg/dL2.6 - 6.0 mg/dLAudrain Medical CenterCCF Isidro 65-86-1576SMY [Catalytic activity/Vol]40 U/L14 - 59 U/LNScotland County Memorial HospitalCCF Odette 82-58-4881AQZ [Catalytic activity/Vol]24 U/L15 - 37 U/LNScotland County Memorial HospitalNo Panel Informationon 91-56-1749Jdscnvvzlegasz and review of laboratory resultsAbnoGeisinger-Lewistown HospitalCLINISYNPrisma Health Baptist Hospital CREATININEon 79-31-4575Onlbywivnw [Mass/Vol]0.42 mg/dLLow0.55 - 1.02 mg/dLAudrain Medical CenterGFR/1.73 sq M.predicted CKD-EPI (S/P/Bld) [Vol rate/Area]>60>=60 mL/min/1.73m [address] [place] [address] EGFR-NON AF HUNGARIAN>60>=60 mL/min/1.73m [address] [place] [address] URINE T PROTEIN CREAT RATIOon 37-05-4096TLQPGTGTJM URINE RANDOM <13.90Lpd85.00 - 300.00 mg/dLAudrain Medical CenterTOTAL PROTEIN URINE RANDOM<6.0NINF - 11.9 mg/dLAudrain Medical CenterUrinalysis macro (dipstick) panel (U)on 09-03-2025 Bilirubin, UANegativeNegative - 4(70) +++ mg/dLNOMS HealthcareBlood, UANegative Negative - 50 Teodoro/mcLLAYTON [facility] HealthcareClarity, UAClearNOAZ HealthcareColor, UA YellowNOAZ HealthcareGlucose, UANegativeNegative - 2000(110) ++++ mg/dLLAYTON HOSPITAL HealthcareInterpretation and review of laboratory resultsNormGeisinger-Lewistown Hospital Ketones, UANegativeNegative - 160(16) ++++ mg/dLAudrain Medical CenterLeukocytes, UA NegativeNegative - 500+++ Robinson/mcLLAYTON HOSPITAL HealthcareNitrite, UANegativeNegative - PositiveNOAZ HealthcarepH, UA6.55 - 9NOAZ HealthcareProtein, UANegativeNegative - 2000(20) ++++ mg/dLLAYTON HOSPITAL HealthcareSpec Grav, UA1.0051 - 1.03NOShriners Hospitals for Children Urobilinogen, UA2.00.2 - 12 mg/dLExcelsior Springs Medical Center HealthcareTBH TOTAL PROTEIN 24 HOUR URINEon 83-33-8328Xmalvizbkyfwxk and review of laboratory results AbnormalNOAZ HealthcareProtein (U) [Mass/Vol]22.6 mg/dLHighNINF - 11.9 mg/dLAudrain Medical CenterTB TOTAL PROTEIN 24 HOUR YBUML696.6NINFNOShriners Hospitals for ChildrenTOTAL VOLUME 24 HOUR QNTAC807bM/24hrNOShriners Hospitals for ChildrenCLINISYNCNCOMANCHE COUNTY [facility] HealthcareALL CBC WITH AUTO DIFFon 16-71-1922ILGIRRDSH ABSOLUTE AUTO0.1NOMS HealthcareBasophils/100 WBC (Bld)0.5 %0.2 - 2.0 %NOMS HealthcareEosinophils/100 WBC (Bld)1.4 %0.9 - 7.0 % [facility] Medical CenterErythrocyte distribution width (RBC) [Ratio]13 %11.0 - 15.0 %NOM HealthcareHematocrit (Bld) [Volume fraction]34.4 %Low36.0 - 48.0 %NOMSsm Health Cardinal Glennon Children'S HospitalHemoglobin (Bld) [Mass/Vol]11.3 g/dLLow12.0 - 16.0 g/dLAudrain Medical Center IMMATURE GRANULOCYTES ABS AUTO0.59HighAudrain Medical CenterImmature granulocytes/100 WBC (Bld)4.4 %High0.0 - 0.5 %[facility] HealthcareInterpretation and review of laboratory resultsAbnormalAudrain Medical CenterLYMPHOCYTES ABSOLUTE AUTO2.4NOShriners Hospitals for ChildrenLymphocytes/100 WBC (Bld)17.8 %Low20.5 - 60.0 %[facility] (RBC) [Entitic mass]29.4 pg26.7 - 34.0 pgOzarks Medical CenterHC (RBC) [Mass/Vol] 32.8 g/dL29.9 - 35.2 g/dLOzarks Medical CenterV (RBC) [Entitic vol]89.4 fL81.0 - 99.0 fLAudrain Medical CenterMONOCYTES ABSOLUTE AUTO1.1HighNOAZ HealthcareMonocytes/100 WBC (Bld)8.1 %1.7 - 12.0 %[facility] Medical CenterNEUTROPHILS ABSOLUTE CVJZ2LbmfXEUN HealthcareNeutrophils/100 WBC (Bld)67.8 %43.0 - 75.0 %[facility] Medical CenterPlatelet mean volume (Bld) [Entitic vol]9.6 fL9.5 - 13.5 fLAudrain Medical CenterTB EO #0.2NOMS [facility] RehabilitationTB UYF873XAOBHannibal Regional Hospital RBC3.85LowNOHannibal Regional Hospital WBC13.3High [facility] CenterCLINISYNMcLeod Health ClarendonTB URINE T PROTEIN CREAT RATIOon 31-92-7748QZXQQHVOOY URINE RANDOM<13.07Zeb26.00 - 300.00 mg/dLAudrain Medical Center Interpretation and review of laboratory resultsAbnormalAudrain Medical CenterTOTAL PROTEIN URINE RANDOM<6.0NINF - 11.9 mg/dLUNC Health Rockingham US OB BPP W NON-STRESSon 87-22-4677EnbTy[place]in[place] [address] Ultrasound Report Signed Patient: JUHI GAMA MR#: [id number] : 1995 Acct:[id number] Age/Sex: 30 / F ADM Date: Loc: [facility] 250- Attending Dr: KUNAL HYATT M.D. Ordering Physician: Steph Keane Date of Service: 08/27/25 Procedure(s): US OB BPP w non-stress Accession Number(s): [id number] cc: Steph Keane; Yomaira BELTRAN [place] [address] Patient Name: JUHI GAMA MRN: [facility]:[id number] date: 1995 Sex: F Assigned Patient Location: LAB Current Patient Location: LAB Accession/Order Number: [id number] Exam Date: 08/27/2025 17:37 Report Date: 08/27/2025 [...] Morillo M.D. 08/27/2025 6:02 PM Dictation Location: Soum Electronically authenticated by: [id number] Y Date: 08/27/2025 18:02 Dictated By: Jp Morillo D.O. Signed By: 08/27/251804 DD/ 01 TD/TT: Skiving Machine Operator:SATNAMadiologpearl, Radiologist, - 08/27/2025 [place] [address] Ultrasound Report Signed Patient: JUHI GAMA MR#: [id number] : 1995 Acct:[id number] Age/Sex: 30 / F ADM Date: Loc: [facility] [address]: KUNAL HYATT M.D. Ordering Physician: Steph Keane Date of Service: 08/27/25 Procedure(s): US OB BPP w non-stress Accession Number(s): [id number] cc: Steph Keane; Yomaira BELTRAN [place] [id number] Patient Name: JUHI GAMA MRN: [facility]:[id number] date: 1995 Sex: F Assigned Patient Location: LAB Current Patient Location: LAB Accession/Order Number: [id number] Exam Date: 08/27/2025 17:37 Report Date: 08/27/2025 [...] Morillo M.D. 08/27/2025 6:02 PM Dictation Location: Soum Electronically authenticated by: [id number] Y Date: 08/27/2025 18:02 Dictated By: Jp Morillo D.O. Signed By: 08/27/251804 DD/ 01 TD/TT: Skiving Machine Operator: LANETTE HealthcareRadiology Study observation (narrative)NOMS HealthcareUS OB BPP W NON-STRESSOrdered By: Radiologist Radiology on 08-97-7746JDXTAudrain Medical Center Work Phone: Urinalysis macro (dipstick) panel (U)on 08-27-2025 Bilirubin, UANegativeNegative - 4(70) +++ mg/dLNOMS HealthcareBlood, UANegative Negative - 50 Teodoro/mcLNOMS HealthcareClarity, UAClearNOAZ HealthcareColor, UA YellowNOMS HealthcareGlucose, UANegativeNegative - 2000(110) ++++ mg/dLNOAZ HealthcareInterpretation and review of laboratory resultsNormalNOAZ Healthcare Ketones, UANegativeNegative - 160(16) ++++ mg/dLNOMS HealthcareLeukocytes, UA NegativeNegative - 500+++ Robinson/mcLNOMS HealthcareNitrite, UANegativeNegative - PositiveNOMS HealthcarepH, UA65 - 9NOMS HealthcareProtein, UANegativeNegative - 2000(20) ++++ mg/dLNOMS HealthcareSpec Grav, UA1.0151 - 1.03NOMS Healthcare Urobilinogen, UA2.00.2 - 12 mg/dLPerson Memorial HospitalURINE CULTURE, ROUTINEon 24-24-7540Pojqkvfp identified Cx Nom (U) Urine Culture, Routine NOMS HealthcareBacteria identified Cx Nom (U)Mixed urogenital floraNOAZ HealthcareBacteria identified Cx Nom (U)25,000-50,000 colony forming units per mLNOMS HealthcareBacteria identified Cx Nom (U)[facility]formed at[facility] NOMS HealthcareBacteria identified Cx Nom (U)[address] [place], [place] [id number] HealthcareBacteria identified Cx Nom (U)Analytical Chemist: Cm Sandoval PhD, Phone: [phone] Medical CenterCLINISYNMcLeod Health Clarendon2nd hr Glucose Tolerance 100 gm loadon 19-93-4764Ufllyol Tolerance Test 2 Kcsx810 [facility] Medical CenterCapillary Glucose POCon 55-82-4038Fuydqhp [Mass/Vol]88 mg/zEEahoka41-01EgadsuCleveland Clinic Medina HospitalComment on above:Performed By: #### [id number] #### [facility] Laboratory [address] [place], [place] [address]Jgz 1 Hron 44-20-8889Ufedrhc [Mass/Vol]152 mg/zQTldnvs11-327 [facility] HospitalComment on above:Performed By: #### [id number] #### [facility] [address] [place], [place] [address]Yei 2 Hron 35-36-0169Zledkpi [Mass/Vol]169 mg/rWDyit85-981 [facility] HospitalComment on above:Performed By: #### [id number] #### [facility] [address] [place], [place] [address]Hkz 3 Hron 18-83-4582Slhdqkc [Mass/Vol]141 mg/qTOzya13-736 [facility] HospitalComment on above:Performed By: #### [id number] #### [facility] [address] [place], [place] [address]Qdt Fastingon 35-81-9273Juumkhr [Mass/Vol]82 mg/oRLqfxtj61-29 [facility] HospitalComment on above:Performed By: #### [id number] #### [facility] [address] [place], [place] [address]Edrlxel tolerance, 1 houron 25-65-3766Rvpflhn Tolerance Test 1 Jerk734EatNdpjhl Health SystemGlucose tolerance, 3 hourson 32-05-8316Ywnpwpg Tolerance Test 3 Hyrq808OgrQcvmgf Health SystemGlucose, tolerance fastingon 46-53-6138Otmdblm Tolerance Test Xnkagvf46RgpSkpgel Health SystemNo Panel Informationon 89-68-5799LijGsewub Health SystemCBC w/ Auto Diffon 08-12-2025 Basophil Absolute0.1 E9/LNormal0.0-0.2FMercy Health – The Jewish HospitalComment on above:Performed By: #### [id number] #### [facility] [address] [place] [address] 89245Udsfljwya/100 WBC (Bld)0.6 %Normal0.0-2.0[facility] HospitalComment on above:Performed By: #### [id number] #### [facility] [address] [place], [place] [address]Bzq Absolute0.1 E9/LNormal0.0-0.5FMercy Health – The Jewish Hospital Comment on above:Performed By: #### [id number] #### [facility] [address] [place] [address] 93374Mshmvphzniv/100 WBC (Bld)1.0 %Normal0.0-8.0[facility] HospitalComment on above:Performed By: #### [id number] #### [facility] [address] [place], [place] [address]Ximwzcclodc distribution width (RBC) [Ratio]12.9 %Normal 10.9-14.2FMercy Health – The Jewish HospitalComment on above:Performed By: #### [id number] #### [facility] [address] [place], [place] [address]Lqmniojedy (Bld) [Volume fraction]33.1 %Low34.0-46.0[facility] HospitalComment on above:Performed By: #### [id number] #### [facility] [address] [place], [place] [address]Yejdvmmqwx (Bld) [Mass/Vol]11.4 g/dLLow12.0-16.0[facility] HospitalComment on above:Performed By: #### [id number] #### [facility] [address] [place] [address]Begdc Absolute2.0 E9/LNormal1.0-4.0[facility] Comment on above:Performed By: #### [id number] #### [facility] [address] [place] [address] 07[address]Lgbyeirakru/100 WBC (Bld)19.6 %Brewyq10.0-50.0[facility] HospitalComment on above:Performed By: #### [id number] #### [facility] [address] [place] [address] 589[address]HJA (RBC) [Entitic mass]29.9 mmRwecvg51.0-34.0[facility] HospitalComment on above:Performed By: #### [id number] #### [facility] [address] [place] [address] 732[address]ISPQ (RBC) [Mass/Vol]34.4 g/zBJprtas72.4-36.0[facility] HospitalComment on above:Performed By: #### [id number] #### [facility] [address] [place] [address]SZY (RBC) [Entitic vol]86.7 uCHvtxdg00.0-100.0[facility] HospitalComment on above:Performed By: #### [id number] #### [facility] [address] [place] [address] 99402Bgyi Absolute0.5 E9/LNormal0.2-1.0[facility] Comment on above:Performed By: #### [id number] #### [facility] [address] [place], [place] [address]Vkdhvpwuw/100 WBC (Bld)4.6 %Normal4.0-14.0[facility] HospitalComment on above:Performed By: #### [id number] #### [facility] [address] [place] [address]65[address]Lwppsu Absolute7.5 E9/LNormal2.0-7.5FMercy Health – The Jewish Hospital Comment on above:Performed By: #### [id number] #### [facility] [address] [place] [address] 58346Kjjpwi Auto74.2 %Xiokdf77.0-75.0[facility] Comment on above:Performed By: #### [id number] #### [facility] [address] [place] [address] 704[address]Mfkvuhsz957.0 E9/WGzrxqx341.0-500.0[facility] Comment on above:Performed By: #### [id number] #### [facility] [address] [place] [address] 49[address]Hflxfpca mean volume (Bld) [Entitic vol]8.1 fLNormal6.4-10.8 [facility] HospitalComment on above:Performed By: #### [id number] #### [facility] [address] [place] [address]JUQ6.8 E12/LLow4.3-5.9[facility] HospitalComment on above:Performed By: #### [id number] #### [facility] [address] [place] [address] 77114IYK90.1 E9/LNormal4.0-11.0[facility] HospitalComment on above:Performed By: #### [id number] #### [facility] [address] [place] [address] 89624Oboqinyakp 50-10-2930Gxcxsnps Lvl7 ng/bODxv99-145BvgawaCleveland Clinic Medina HospitalComment on above:Performed By: #### [id number] #### [facility] [address] [place] [address]Elahtznv 13-23-9217Fpyapq Lvl>22.3Normal>=6.7FMercy Health – The Jewish HospitalComment on above:Performed By: #### [id number] #### [facility] [address] [place], [place] [address]Walb Scr Glu 1 Hron 74-13-8461Mtureiw [Mass/Vol]155 mg/dLHigh 55-140[facility] HospitalComment on above:Performed By: #### [id number] #### [facility] [address] [place], [place] [address]Fyvwywr 1h post 50g loadon 18-00-0754Lgokvpr, 1 hr PP 50GM dose 155ProMedica Health SystemIronon 66-15-1777Dpqg43 microgram/uDKlosja11-345XnccqlCleveland Clinic Medina HospitalComment on above:Performed By: #### [id number] #### [facility] [address], [place] [address]An Panel Informationon 14-65-6023UGUX HealthcareTIBC Calculated on 25-28-3948RTSO669 microgram/yTXtmj421-132RmduytCleveland Clinic Medina HospitalComment on above:Performed By: #### [id number] #### [facility] [address], [place] [address]Xoymkixubkf [Mass/Vol]455 mg/qDKwio624-012NfbfqlCleveland Clinic Medina HospitalComment on above:Performed By: #### [id number] #### [facility] [address], [place] [address]BS OB LIMITED 1+ FETUSESon 33-99-5833GF OB LIMITED 1+ FETUSES FINDINGS: Single viable intrauterine with cephalic presentation and antegrade cardiac and activity, 144bpm. Appropriate adequate visualization of the LVOT, RVOT and four-chamber view seen currently. Gestational age of 24 weeks, 4 days with a estimated delivery date of November 28, 2025. IMPRESSION: Appropriate cardiac and outflow tract anatomy, appropriate for this age. TRANSCRIBED BY: ELECTRONICALLY SIGNED BY: Yue EspinosaNot AvailableComment on above:Order Comment: US OB INCOMPLETE ANATOMY Estimated Date of Delivery: 11/28/25 Gestational Age as of 07/21/2025: 76b3lKeygycvijg macro (dipstick) panel (U)on 60-28-5552Vqhyvhvra, UANegativeNegative - 4(70) +++ mg/dLNOMS HealthcareBlood, UANegativeNegative - 50 Teodoro/mcLNOMS HealthcareClarity, UAClearNOMS Healthcare Color, UAYellowNOMS HealthcareGlucose, UANegativeNegative - 2000(110) ++++ mg/dL [facility] HealthcareInterpretation and review of laboratory resultsAbnormalNOAZ HealthcareKetones, UANegativeNegative - 160(16) ++++ mg/dLLAYTON [facility]ITAL Healthcare Leukocytes, UANegativeNegative - 500+++ Robinson/mcLNOAZ HealthcareNitrite, UA NegativeNegative - PositiveNOMS HealthcarepH, UA65 - 9NOMS HealthcareProtein, UA NegativeNegative - 2000(20) ++++ mg/dLLAYTON HOSPITAL HealthcareSpec Grav, UA1.011 - 1.03 NOMS HealthcareUrobilinogen, UA1.00.2 - 12 mg/dLNOAZ HealthcareVit B12on 52-52-8127Slgbaivig (Vitamin B12) [Mass/Vol]205 pg/jCTgokpl02-2577CwdaqkCleveland Clinic Medina HospitalComment on above:Performed By: #### [id number] #### [facility] [address] [place], [place] [address]PXQ w/ Auto Diffon 89-63-2012Argotuuc Absolute0.0 E9/LNormal 0.0-0.2FMercy Health – The Jewish HospitalComment on above:Performed By: #### [id number] #### [facility] [address] [place], [place] [address]Werccayyg/100 WBC (Bld)0.2 %Normal0.0-2.0[facility] HospitalComment on above:Performed By: #### [id number] #### [facility] [address] [place], [place] [address]Xmq Absolute0.1 E9/LNormal0.0-0.5FMercy Health – The Jewish Hospital Comment on above:Performed By: #### [id number] #### [facility] [address] [place], [place] [address]Ieofjhykuvx/100 WBC (Bld)0.5 %Normal0.0-8.0[facility] HospitalComment on above:Performed By: #### [id number] #### [facility] [address] [place], [place] [address]Brnoxlbmyzz distribution width (RBC) [Ratio]13.0 %Normal 10.9-14.2FMercy Health – The Jewish HospitalComment on above:Performed By: #### [id number] #### [facility] [address] [place], [place] [address]Tecyqildti (Bld) [Volume fraction]31.9 %Low34.0-46.0[facility] HospitalComment on above:Performed By: #### [id number] #### [facility] [address] [place], [place] [address]Slzkwzjoly (Bld) [Mass/Vol]11.1 g/dLLow12.0-16.0[facility] HospitalComment on above:Performed By: #### [id number] #### [facility] [address] [place], [place] [address]Fohto Absolute2.1 E9/LNormal1.0-4.0[facility] Comment on above:Performed By: #### [id number] #### [facility] [address] [place], [place] [address]Qtbhlmqtbfy/100 WBC (Bld)16.2 %Qwczok41.0-50.0[facility] HospitalComment on above:Performed By: #### [id number] #### [facility] [address] [place], [place] [address]ZXD (RBC) [Entitic mass]29.9 enJdvmlu75.0-34.0[facility] HospitalComment on above:Performed By: #### [id number] #### [facility] [address] [place], [place] [address]BDGE (RBC) [Mass/Vol]34.8 g/bNUikftr34.4-36.0[facility] HospitalComment on above:Performed By: #### [id number] #### [facility] [address] [place] [address]IQD (RBC) [Entitic vol]85.7 cMIyomms12.0-100.0[facility] HospitalComment on above:Performed By: #### [id number] #### [facility] [address] [place], [place] [address]Pfuc Absolute0.9 E9/LNormal0.2-1.0[facility] Comment on above:Performed By: #### [id number] #### [facility] [address] [place] [address] 987[address]Vzpztuesb/100 WBC (Bld)7.0 %Normal4.0-14.0[facility] HospitalComment on above:Performed By: #### [id number] #### [facility] [address] [place] [address]Diroxl Absolute9.7 E9/LHigh2.0-7.5FMercy Health – The Jewish Hospital Comment on above:Performed By: #### [id number] #### [facility] [address] [place] [address]28[address]Hawzev Auto76.1 %High36.0-75.0[facility] Comment on above:Performed By: #### [id number] #### [facility] [address] [place], [place] [address]Hoxdjtla075.0 E9/CVfnsil819.0-500.0[facility] Comment on above:Performed By: #### [id number] #### [facility] [address] [place], [place] [address]Fjwzycwy mean volume (Bld) [Entitic vol]8.0 fLNormal6.4-10.8 [facility] HospitalComment on above:Performed By: #### [id number] #### [facility] [address] [place], [place] [address]GYA8.7 E12/LLow4.3-5.9[facility] HospitalComment on above:Performed By: #### [id number] #### [facility] [address] [place] [address] 709[address]UPT87.8 E9/LHigh4.0-11.0[facility] HospitalComment on above:Performed By: #### [id number] #### [facility] [address] [place] [address] 299[address]KHSzq 85-06-0481JD1 [Moles/Vol]20 mmol/HMnn42-82XuyemlCleveland Clinic Medina HospitalComment on above:Performed By: #### [id number] #### [facility] [address] [place] [address] 647[address]Uyexf gap [Moles/Vol]16 mmol/LNormal6-16[facility] HospitalComment on above:Performed By: #### [id number] #### [facility] [address] [place] [address] 796[address]Fkoxkry [Mass/Vol]3.8 g/dLNormal3.3-5.0[facility] HospitalComment on above:Performed By: #### [id number] #### [facility] [address] [place] [address]Llsanqe/Globulin [Mass ratio]1.3 {ratio}Normal1.1-2.2FMercy Health – The Jewish HospitalComment on above:Performed By: #### [id number] #### [facility] [address] [place] [address]Ywq Phos78 Int._Unit/INecvqk33-75OshlorCleveland Clinic Medina Hospital Comment on above:Performed By: #### [id number] #### [facility] [address] [place] [address] 57[address]TYU89 Int._Unit/LNormal6-46[facility] HospitalComment on above:Performed By: #### [id number] #### [facility] [address] [place] [address] 23[address]YCH58 Int._Unit/LNormal5-43[facility] HospitalComment on above:Performed By: #### [id number] #### [facility] [address], [place] [address]Rzby Total0.8 mg/dLNormal0.0-1.1FMercy Health – The Jewish Hospital Comment on above:Performed By: #### [id number] #### [facility] [address] [place], [place] [address]IHE/Creat Ratio18 No IyskwOnsygn84-37CvsqxtCleveland Clinic Medina HospitalComment on above:Performed By: #### [id number] #### [facility] [address] [place], [place] [address]Tlblgvu [Mass/Vol]8.9 mg/dLNormal8.9-11.1FMercy Health – The Jewish HospitalComment on above:Performed By: #### [id number] #### [facility] [address] [place], [place] [address]Biintxbp [Moles/Vol]104 mmol/RUiqgkb108-575CllmxlCleveland Clinic Medina HospitalComment on above:Performed By: #### [id number] #### [facility] [address] [place], [place] [address]Gwdqxhzfhi [Mass/Vol]0.6 mg/dLNormal0.5-1.3FMercy Health – The Jewish HospitalComment on above:Performed By: #### [id number] #### [facility] [address] [place], [place] [address]Xoxiyqts (S) [Mass/Vol]3.0 g/dLNormal1.4-4.0C[facility] Medina HospitalComment on above:Performed By: #### [id number] #### [facility] [address], [place] [address]Eromheq [Mass/Vol]92 mg/sCDosxff18-186RgqqomCleveland Clinic Medina HospitalComment on above:Performed By: #### [id number] #### [facility] [address], [place] [address]Iqvexbaaq [Moles/Vol]3.7 mmol/LNormal3.5-5.3FMercy Health – The Jewish HospitalComment on above:Performed By: #### [id number] #### Rivera [facility] [address], [place] [address]Ztrslzr [Mass/Vol]6.8 g/dLNormal6.0-7.8[facility] HospitalComment on above:Performed By: #### [id number] #### [facility] [address], [place] [address]Cpvuxk [Moles/Vol]136 mmol/RHnhifd827-193NnqvrtCleveland Clinic Medina HospitalComment on above:Performed By: #### [id number] #### [facility] [address], [place] [address]Jpyk nitrogen [Mass/Vol]11 mg/dLNormal5-21[facility] HospitalComment on above:Performed By: #### [id number] #### [facility] [address], [place] [address]Kxmet Panelon 51-82-8145Tyiwgwnijwd [Mass/Vol]239 mg/dLHigh 120-200C[facility] HospitalComment on above:Performed By: #### [id number] #### [facility] [address], [place] [address]Zddqyhemjzb in HDL [Mass/Vol]88 mg/dLInvalid Interpretation CodeCleveland Clinic Medina HospitalComment on above:Result Comment: '>= 60 LOW RISK' '<= 40 HIGH RISK'Performed By: #### [id number] #### [facility] [address], [place] [address]Gbtztboqjbs in LDL [Mass/Vol]144 mg/dLHigh<=129C[facility] Medina HospitalComment on above:Performed By: #### [id number] #### [facility] [address], [place] [address]Ijpznyhwhco in VLDL [Mass/Vol]40 mg/dLNormal7-40[facility] Medina HospitalComment on above:Performed By: #### [id number] #### [facility] [address] [place] [address]Snaznzmemtdm [Mass/Vol]202 mg/dLHigh<=149[facility] HospitalComment on above:Performed By: #### [id number] #### Miguel [facility] [address] [place] [address]aTQCzi 28-01-6702rPGO347 mL/min/1.73 e6Ltaqap>=59[facility] Medina HospitalComment on above:Performed By: #### [id number] #### Miguel [facility] [address] [place] [address]FYT, SERUM, OPEN SPINA BIFIDAon 50-94-0760PSQ MOM0.95.[facility] CenterAFP VALUE59.2 ng/mL.[facility] CenterCOMMENT:Comment.[facility] Comment on above:Amy Ramos, Ph.D., [facility] Director References: Available Upon Request. Multiples Of Median Cutoffs For AFP Elevations Hsieh 2.5 Black 2.8 IDD 2.0 Twins 4.5 Abbreviation Definitions IDD - Insulin Dep Diabetes OSBR - Open Spina Bifida Risk For further inquiries contact [employer] at [phone]. This test was developed and its performance characteristics determined by [employer]. It has not been cleared or approved by the Food and Drug Administration. Performed at: [facility] [address], [place] [id number] Analytical Chemist: Dona Justin [facility], Phone: [phone] GEST. AGE ON COLLECTION DATE20.6. weeksNOAZ HealthcareGESTAT. AGE BASED ONLMP. [facility] Medical CenterComment on above:Recalculations are not recommended when gestational dating by LMP and ultrasound are within 10 days. INSULIN DEP DIABETESNo.[facility] CenterINTERPRETATIONComment.[facility] Comment on above:Interpretation: Screen Negative This result is screen negative [...] Customer Services to discuss available options. The [employer] recommends amniocentesis be offered to women age 35 and older. MATERNAL AGE AT EDD30.7. yrNOMS HealthcareMULTIPLE GESTATIONNo.[facility] OSBR RISK 1 [id number].NOMS HealthcareRACECaucasian.NOMS HealthcareRESULTSReport. NOMS HealthcareTEST RESULTS:Negative.NOMS OfbmgkrqvmIOEZRI907. lbsNOAZ HealthcarePREGNANCY N N LMP [id number] 2 17 N 1 Y 146 N N N N N White/ CLINISYNCNOMS HealthcareUS OB 14+ WEEKS ANATOMY SCANon 13-75-4897TG OB 14+ WEEKS ANATOMY SCANEXAM: US OB 14+ WEEKS ANATOMY SCAN HISTORY: [...] II, MD, PHD at 16-Jul-2025 08:07:07 AM [facility] TeleradiologyNormalNot AvailableComment on above:Order Comment: US OB ANATOMY SINGLE W US OB CERVICAL LENGTH Estimated Date of Delivery: 11/28/25 Gestational Age as of 06/22/2025: 83e9cLuwpeilnvd macro (dipstick) panel (U)on 04-39-9271Ojkywawph, UANegativeNegative - 4(70) +++ mg/dLNOMS HealthcareBlood, UANegativeNegative - 50 Teodoro/mcLNOMS HealthcareClarity, UAClearNOMS Healthcare Color, UAYellowNOMS HealthcareGlucose, UANegativeNegative - 2000(110) ++++ mg/dL NOMS HealthcareInterpretation and review of laboratory resultsNormalNOMS HealthcareKetones, UANegativeNegative - 160(16) ++++ mg/dLNOMS Healthcare Leukocytes, UANegativeNegative - 500+++ Robinson/mcLNOMS HealthcareNitrite, UA NegativeNegative - PositiveNOMS HealthcarepH, UA65 - 9NOMS HealthcareProtein, UA NegativeNegative - 2000(20) ++++ mg/dLNOMS HealthcareSpec Grav, UA1.011 - 1.03 NOMS HealthcareUrobilinogen, UA1.00.2 - 12 mg/dLNOMS HealthcareNOMS Healthcare RECURRENT VAGINITIS (HTRX)on 52-01-8976CKMCDGYBF VZWZIUW1INID Healthcare ATOPOBIUM VAGINAENot detectedNOMS HealthcareBVAB 2,3 (BACTERIAL VAGINOSIS ASSOCIATED BACTERIA 2, 3); MOBILUNCUS TMN2XMTR HealthcareBVAB 2,3 (BACTERIAL VAGINOSIS ASSOCIATED BACTERIA 2, 3); MOBILUNCUS SPPNot detectedNOMS Healthcare RADHA ALBICANS, PARAPSILOSIS, PDUIHGCJBF5USAJ HealthcareCANDIDA ALBICANS, PARAPSILOSIS, TROPICALISNot detectedNOMS HealthcareCANDIDA XMTSVYVQ1QLYL HealthcareCANDIDA GLABRATANot detectedNOMS HealthcareCANDIDA JUZAPQ8SVYB HealthcareCANDIDA KRUSEINot detectedNOMS HealthcareCHLAMYDIA SJFGESPLPBI0SFSC HealthcareCHLAMYDIA TRACHOMATISNot detectedNOMS HealthcareGARDNERELLA VAGINALIS 17.967AbnormalNOMS HealthcareGARDNERELLA VAGINALISDetectedAbnormalNOMS HealthcareInterpretation and review of laboratory resultsAbnormalNOMS Healthcare MEGASPHAERA (TYPES 1, 2)0NOMS HealthcareMEGASPHAERA (TYPES 1, 2)Not detectedNOMS HealthcareMYCOPLASMA XZHDGUCGJJ5BPFF HealthcareMYCOPLASMA GENITALIUMNot detectedNOMS HealthcareNEISSERIA BVFREEYSTEC8JKPN HealthcareNEISSERIA GONORRHOEAENot detectedNOMS HealthcareTRICHOMONAS MPKRPXBWB6WPWO Healthcare TRICHOMONAS VAGINALISNot detectedNOMS HealthcareNOMS HealthcareUrinalysis macro (dipstick) panel (U)on 26-51-3157Vypvsezwv, UANegativeNegative - 4(70) +++ mg/dL NOMS HealthcareBlood, UANegativeNegative - 50 Teodoro/mcLNOMS HealthcareClarity, UA ClearNOMS HealthcareColor, UAYellowNOMS HealthcareGlucose, UANegativeNegative - 1999(110) ++++ mg/dLNOMS HealthcareInterpretation and review of laboratory resultsNormalNOMS HealthcareKetones, UANegativeNegative - 160(16) ++++ mg/dLNOMS HealthcareLeukocytes, UANegativeNegative - 500+++ Robinson/mcLNOMS Healthcare Nitrite, UANegativeNegative - PositiveNOMS HealthcarepH, UA65 - 9N[facility] Healthcare Protein, UANegativeNegative - 2000(20) ++++ mg/dLNOMS HealthcareSpec Grav, UA 1.0051 - 1.03NOMS HealthcareUrobilinogen, UA1.00.2 - 12 mg/dLNOMS HealthcareNOMS HealthcareUrinalysis macro (dipstick) panel (U)on 80-50-6851Grmtradvz, UA NegativeNegative - 4(70) +++ mg/dLNOMS HealthcareBlood, UANegativeNegative - 50 Teodoro/mcLNOMS HealthcareClarity, UAClearNOMS HealthcareColor, UAYellowNOMS HealthcareGlucose, UANegativeNegative - 2000(110) ++++ mg/dLNOAZ Healthcare Interpretation and review of laboratory resultsNormalNOMS HealthcareKetones, UA NegativeNegative - 160(16) ++++ mg/dLNOAZ HealthcareLeukocytes, UAPositive Negative - 500+++ Robinson/mcLNOAZ HealthcareComment on above:smallNitrite, UA NegativeNegative - PositiveNOMS HealthcarepH, UA6.55 - 9NOMS HealthcareProtein, UANegativeNegative - 2000(20) ++++ mg/dLNOAZ HealthcareSpec Grav, UA1.011 - 1.03 NOMS HealthcareUrobilinogen, UA0.20.2 - 12 mg/dLNOShriners Hospitals for ChildrenNOAZ Healthcare BOX TESTon 18-17-6675EIS TEST SENT OUTunSuburban Community [facility] & [facility] TwoajkkqmzBFZ7zecsyIMDR RshskfomvxKRY93/08/20NOAZ HealthcareUNITY BOX CLINISYNCCBC without diffon 12-01-8261Wdvmjuatji (Bld) [Volume fraction]39.8 % [facility] Medical CenterHemoglobin (Bld) [Mass/Vol]13.2 g/dLRegional Medical Center SystemPlatelets (Bld) [#/Vol]390 10*3/uLCincinnati Children's Hospital Medical CenterRb Mcv (Fl) By Automated Count84.7C[facility] Medical CenterDrug Screen, Urineon 05-04-2025 Amphetamine/MethamphetamineNegativeRegional Medical Center SystemBarbituratesNegative [facility] SystemBenzodiazepinesNegativeLouis Stokes [facility] Medical Centerca [facility] SystemCocaine MetaboliteNegativeRegional Medical Center SystemMethadoneNegativeRegional Medical Center SystemOpiatesNegativeRegional Medical Center SystemOxycodoneNegativeRegional Medical Center SystemPhencyclidineNegativeCincinnati Children's Hospital Medical CenterThc Marijuana, UrineNegative [facility] SystemHBV surface Ag IA Qlon 83-25-9805Eyozvxcyc B Surface AntigenNegativeRegional Medical Center SystemHCV Ab IA Qlon 37-96-3958BJS Ab Ql (S) Non-ReactiveCincinnati Children's Hospital Medical CenterHIV 1+2 Ab+HIV1 p24 Ag IA Qlon 12-38-7698QXA 1&2 AB/AGNon-ReactiveProWadsworth-Rittman Hospital SystemHemoglobin A1con 66-61-4951KgV8q (Bld) [Mass fraction]5.3 %4.0 - 6.0 %[facility] SystemNo Panel Information on 06-42-0914TONN HealthcareRubella IGG immune statusOrdered By: Angeline Ron on 00-85-3489Botcojx immune IgGProMediia Health SystemType and screenon 33-80-2380Zyz/Rh(D)PositiveProWadsworth-Rittman Hospital SystemHCG ( test) Ql (U)on 74-62-0282Bfospwcwbovkro and review of laboratory resultsAbnormalNOAZ Healthcare Preg Test, UrPositiveNegativeNOShriners Hospitals for ChildrenNOAZ HealthcareUS OB TRANSVAGINALon 19-79-4638VkxTy[place]in[place] [address] Ultrasound Report Signed Patient: JUHI COPE MR#: [id number] : 1995 Acct:[id number] Age/Sex: 30 / F ADM Date: 05/01/25 Loc: US Attending Dr: Nathan Pop D.O. Ordering Physician: Nathan Pop D.O. Date of Service: 05/01/25 Procedure(s): US OB transvaginal Accession Number(s): [id number] cc: Nathan Pop D.O.; Physician,Non-Staff [place] [address] Patient Name: JUHI COPE MRN: [id number] date: 1995 Sex: F Assigned Patient Location: US Current Patient Location: US Accession/Order Number: [id number] Exam Date: 05/01/2025 08:57 Report Date: 05/01/2025 [...] Faria M.D. 05/01/2025 9:01 AM Dictation Location: [place] [address] Electronically authenticated by: [id number] Y Date: 05/01/2025 09:01 Dictated By: Will Faria M.D. Signed By: 05/01/25903 DD/ 0 TD/TT: Skiving Machine Operator:TBHRadiology, Radiologist, - 05/01/2025 [place] [address] Ultrasound Report Signed Patient: JUHI COPE MR#: [id number] : 1995 Acct:[id number] Age/Sex: 30 / F ADM Date: 05/01/25 Loc: US Attending Dr: Nathan Pop D.O. Ordering Physician: Nathan Pop D.O. Date of Service: 05/01/25 Procedure(s): US OB transvaginal Accession Number(s): [id number] cc: Nathan Pop D.O.; Physician,Non-Staff [place] [address] Patient Name: JUHI COPE MRN: [id number] date: 1995 Sex: F Assigned Patient Location: US Current Patient Location: US Accession/Order Number: [id number] Exam Date: 05/01/2025 08:57 Report Date: 05/01/2025 [...] Faria M.D. 05/01/2025 9:01 AM Dictation Location: [place] [address] Electronically authenticated by: [id number] Y Date: 05/01/2025 09:01 Dictated By: Will Faria M.D. Signed By: 05/01/25903 DD/ 0 TD/TT: Skiving Machine Operator: LANETTE HealthcareRadiology Study observation (narrative)[facility] HealthcareUS OB TRANSVAGINALOrdered By: Radiologist Radiology on 97-93-7480DUAM Healthcare Work Phone: Urinalysis macro (dipstick) panel (U)on 05-01-2025 Bilirubin, UANegativeNegative - 4(70) +++ mg/dLNOMS HealthcareBlood, UANegative Negative - 50 Teodoro/mcLNOMS HealthcareClarity, UAClearNOMS HealthcareColor, UA YellowNOMS HealthcareGlucose, UANegativeNegative - 2000(110) ++++ mg/dLNOAZ HealthcareInterpretation and review of laboratory resultsNormalNOAZ Healthcare Ketones, UANegativeNegative - 160(16) ++++ mg/dLNOAZ HealthcareLeukocytes, UA NegativeNegative - 500+++ Robinson/mcLNOAZ HealthcareNitrite, UANegativeNegative - PositiveNOAZ HealthcarepH, UA5.55 - 9NOMS HealthcareProtein, UANegativeNegative - 1999(20) ++++ mg/dLNOAZ HealthcareSpec Grav, UA1.021 - 1.03NOAZ Healthcare Urobilinogen, UA1.00.2 - 12 mg/dLNOShriners Hospitals for ChildrenNOAZ HealthcareCHEMISTRYOrdered By: SYSTEM SYSTEM on 87-52-6023Atyjriiprcil Lvl31.35 ng/mLInvalid Interpretation CodeRemisol ChemComment on above:Result Comment: 'F NON FOLLICULAR = 0.10 - 0.60' 'LUTEAL = 3.00 - 17.5' 'MIDLUTEAL = 3.30 - 18.6' 'POST-MENOPAUSE = 0.10 - 0.40' '-FIRST TRIMESTER = 8.30 - 66.5' 'SECOND TRIMESTER = 18.9 - 66.1' 'THIRD TRIMESTER = 35.8 - 312.4' 'MALES = 0.14 - 2.06'Progesteroneon 29-48-2847Vtojnuxukkzx Lvl31.35 ng/mLInvalid Interpretation CodeCleveland Clinic Medina HospitalComment on above:Result Comment: 'F NON FOLLICULAR = 0.10 - 0.60' 'LUTEAL = 3.00 - 17.5' 'MIDLUTEAL = 3.30 - 18.6' 'POST-MENOPAUSE = 0.10 - 0.40' '-FIRST TRIMESTER = 8.30 - 66.5' 'SECOND TRIMESTER = 18.9 - 66.1' 'THIRD TRIMESTER = 35.8 - 312.4' 'MALES = 0.14 - 2.06'Performed By: #### [id number] #### Miguel [facility] [address], [place] [address]Hezyzochyggoce 76-81-9769Rqdcxewdjwct2.2 ng/mLNormal.The Pending Sale To [facility] Physician GroupComment on above:Result Comment: Follicular phase 0.1 - 0.9 Luteal phase 1.8 - 23.9 Ovulation phase 0.1 - 12.0 First trimester 11.0 - 44.3 Second trimester 25.4 - 83.3 Third trimester 58.7 - 214.0 Postmenopausal 0.0 - 0.1 Performed at: [facility] [id number] Analytical Chemist: Cm Sandoval PhD, Phone: [phone] PERFORMED BY: [place] [address] [place] [address] PATHOLOGIST MALTHOUSE LABORER ARNULFO THOMAS M.D.Performed By: #### PROG #### [facility] ,[place] Transvaginal Non-OBon 65-04-6970RV Transvaginal Non-OBExam Date/Time: 01/22/2025 16:22 EST Reason for Exam: N94.6 Report PLEASE SEE US Pelvis Non-OB Complete REPORT DATED: 01/22/2025. Ordering Provider: Nathan POP FINAL REPORT Dictated: 01/27/2025 10:11 am Siddharth Foy MD Signed (Electronic Signature): 01/27/2025 10:11 am Signed by: Siddharth Foy MD Transcribed by: ELOISA Technologist: [facility] Pelvis Non-OB Completeon 18-34-0378QQ Pelvis Non-OB CompleteExam Date/Time: 01/22/2025 16:24 EST Reason for Exam: [...] Ramsey Gonzalez MD Transcribed by: ELOISA Technologist: Filiberto [facility] CampusIGP,APTIMA HPV,AGE GDLNon 39-76-9209VOJ GDLN ACOG TESTINGNote.NOMS HealthcareComment on above:TESTS RESULT FLAG UNITS REF RANGE LAB Clinician Provided Cytology Information Source.............Cervix;Endocervix No. of containers..01 ThinPrep Vial Age Algo ACOG Sarah... FLAG LEGEND: L-Low Normal,H-High Normal,LL-Alert Low,HH-Alert High <-Panic Low,>-Panic High,A-Abnormal,AA-Critical Abnormal Performed at: 01 =G [facility] [address] [facility] [place] [address] Loren Oneal MD, IGP, RFX APTIMA HPV ASCUNote.NOMS HealthcareComment on above:TESTS RESULT FLAG UNITS REF RANGE LAB DIAGNOSIS: 02 NEGATIVE FOR INTRAEPITHELIAL LESION OR MALIGNANCY. Specimen adequacy: 02 Satisfactory for evaluation. Endocervical and/or squamous metaplastic cells (endocervical component) are present. Performed by: Sophia Calzada, Gear Hobber Set Up Operator ([facility]) . 02 Note: Note 02 The [...] High,A-Abnormal,AA-Critical Abnormal Performed at: 02 WB [facility] [place] [address] [place] [address] Loren Oneal MD, Performed at: =G - [facility] [address]za[facility] [place] [id number] Analytical Chemist: Loren Oneal MD, Phone: [phone] Performed at: - [facility] [address] [place], [place] [id number] Analytical Chemist: Loren Oenal MD, Phone: [phone] BRUSH-SPATULA CERVIX ENDOCERVIX [facility] 07-25-0780ODIWGavcfrxup (WHQ) JUHI COPE ([id number]) 1995 F Date Time Provider Department 04/29/24 CHARLENE RODRIGUEZ WHQ During your visit today, we recorded the following information about you: Candis Garces 04/29/2024 8:24 AM Signed Received message [...] 10/08/2020 HTN (hypertension) [I10] Encounter Status:Closed by CANDIS GARCES on 04/29/24NoProMed[facility] 52-67-6708AJVHHlwrelnly (WHQ) JUHI COPE ([id number]) 1995 F Date Time Provider Department 04/25/24 CHARLENE RODRIGUEZ WHQ During your visit today, we recorded the following information about you: Anna De Leon 04/25/2024 1:10 PM Signed Pt got in sooner for surgery with 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 Please cancel surgery and all pre [...] Encounter Status:Closed by ANNA DE LEON on 04/25/24NoGrant HospitalCNPNon [id number] (JENNIFERQ) JUHI COPE ([id number]) 1995 F Date Time Provider Department 12/12/23 GEORGEBARBARACHARLENE During your visit today, we recorded the following information about you: Deandra Candis 12/12/2023 2:16 PM Signed 1st attempt to [...] 10/08/2020 HTN (hypertension) [I10] Encounter Status:Closed by CANDIS GARCES on 12/12/23[facility] [id number] Visit (GYMGME) ANATOLIYJUHI ([id number]) 1995 F Date Time Provider Department 12/10/23 10:30 AM CHARLENE RODRIGUEZ During your visit today, we recorded the following information about you: Pulse Blood pressure Weight 98/minute 124/84 68.9 kg Charlene Rodriguez DO 12/10/2023 3:14 PM Signed [facility] SECTION FOR MINIMALLY INVASIVE GYNECOLOGIC SURGERY OUTPATIENT VISIT DATE 12/10/2023 OUTPATIENT VISIT TYPE Follow-up visit PRIMARY CARE PHYSICIAN: Denny Rodríguez [address] [place] [address] REFERRING PHYSICIAN: Self CHIEF COMPLAINT: No chief complaint on file. HISTORY OF PRESENT ILLNESS: Juhi Cope is a pleasant 28 year old [...] verbalizes understanding and agrees with treatment plan. Chralene Rodriguez, DO In clinic today, pt reports she still has pain monthly but no bleeding. States Orilissa has not improved her pain. She continues to have cramping and discomfort. Has failed norethindrone and Orilissa. 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 Please advise. Thanks. Candis Suárez RN 08/02/2023 12:02 PM Signed PA for orilissa completed via Cover MyMeds. Juhi Cope (Morales: [id number]) - [id number] Orilissa 150MG tablets Status: Sent To Plan Created: August 02, 2023 Sent: August 02, 2023 DIALLO Coffey Ashley 08/03/2023 10:22 AM Signed Candis Suárez RN 08/09/2023 1:36 PM Signed Patient notified of approval via MyC message. Encounter closed. Candis Suárez RN Allergies As of Date: 08/02/2023 [...] 10/08/2020 HTN (hypertension) [I10] Encounter Status:Closed by JENIFER LYNN on 08/02/23[facility] [id number] Visit (GYMGME) ANATOLIYJUHI ([id number]) 1995 F Date Time Provider Department 07/16/23 11:30 AM CHARLENE RODRIGUEZ During your visit today, we recorded the following information about you: Blood pressure Last Period 136/90 07/08/23 Charlene Rodriguez DO 07/16/2023 12:41 PM Signed [facility] SECTION FOR MINIMALLY INVASIVE GYNECOLOGIC SURGERY OUTPATIENT VISIT DATE 07/16/2023 OUTPATIENT VISIT TYPE Follow-up visit PRIMARY CARE PHYSICIAN: Denny Rodríguez [address] [place] [address] REFERRING PHYSICIAN: Denny Rodríguez CHIEF COMPLAINT: No chief complaint on file. 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 IMPRESSION: No deep infiltrating endometriosis. Skiving Machine Operator: DAVID Transcribe Date/Time: Jun 12 2023 2:54P Dictated by : ASHLEY DUKE MD This examination was interpreted and the report reviewed and electronically signed by: SONIDO FLAHERTY MD on Jun 12 2023 4:51PM EST [id number] Township District Memorial HospitalCNPNon 75-57-2071KXHPDpmbyxmnp (GYNMN) JUHI COPE ([id number]) 1995 F Date Time Provider Department 05/11/23 CHARLENE RODRIGUEZ GYNMN During your visit today, we recorded the following information about you: Tawana Nair [facility] 05/11/2023 1:21 PM Signed Reason for call: other - Vaginal bleeding Provider name: Dr Rodriguez Additional comments: patient having more vaginal bleeding and concerned she is getting worse. Recommendation: routed to nurse triage pool Candis Suárez RN 05/11/2023 4:32 PM Signed Reports vaginal bleeding, using panty liners, changing a few times a day, not severe. Biggest complaint is cramping. Has had 3 periods of bleeding recently - 04/22/2023 LMP, last a few days, 05/04-05/10 bleeding again 05/11/2023 started again today. Takes aygestin 5mg daily. 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 Encourage to spanish moss picker the flexeril as this will help with the cramping. Reviewed red flag bleeding symptoms that require trip to ER (soaking greater than one overnight pad per hour, chest pain, shortness of breath, fatigue, palpitations).. Advised keep appt. Gives verbal understanding. Appointments for Next 60 Days Date Time Provider Location Dept Phone 05/17/2023 1:00 PM [facility]LENE [facility]ODRIGUEZ [facility] [phone] Candis Suárez RN Allergies As of Date: 05/11/2023 (No Known Allergies) Date Reviewed: 05/09/2023 Reviewed by: Jihan Downs APRN.TRUSS MAKER - Fully Assessed Reason for Visit: Vaginal [...] 10/08/2020 HTN (hypertension) [I10] Encounter Status:Closed by CANDIS WILLINGHAM on 05/11/23[facility] [id number] Visit ([facility] SUNILJUHI NIX ([id number]) 1995 F Date Time Provider Department 05/01/23 10:30 AM JIHAN DOWNS [facility] During your visit today, we recorded the following information about you: Blood pressure Weight Height Last Period 148/64 64.9 kg 1.575 m 04/22/23 Jihan Downs APRN.[facility] 05/09/2023 11:46 AM Signed Juhi Cope is a 28 year old female who presents for problem visit for pain HPI: Pain is week before period and week of period. Worse on her period for every day she's bleeding Urinary - No symptoms GI - Always constipated. 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 History Comments: Sexual Activity: Never; No partner [...] at same time every day Relaxation techniques Jihan Downs APRN.CNP Medical Decision Making: Problems: Moderate: New problem with uncertain prognosis Data: Unique source(s) for external note(s) reviewed: 1 Unique test result(s) reviewed: 1 Risk: Moderate: Drug management Medical Decision Making Level: 4 - Moderate Jihan Downs APRN.CNP 05/01/2023 11:49 AM Addendum Plan Pelvic floor physical therapy - or can go locally [email or web address] Trial flexeril at bedtime Can consider Baclofen suppositories - let me know if you want to trial after you go to PT Contin (more content not included)...NormalCleveland Clinic Lutheran HospitalCHEMISTRY Ordered By: SYSTEM SYSTEM on 30-56-6382Hcjbqhd [Mass/Vol]4.3 g/dLNormal3.3 - 5.0 gm/dLOKLAHOMA CITY [facility] [place] RemisolAlbumin/Globulin [Mass ratio]1.2 {ratio}Normal1.1 - 2.2[facility] RemisolALP [Catalytic activity/Vol]106 [iU]/dHigh21 - 98 Int._Unit/LFT[facility] Remisol ALT No additional P-5'-P [Catalytic activity/Vol]46 [iU]/dNormal6 - 46 Int._Unit/LFTMC RemisolAnion gap [Moles/Vol]14 mmol/LNormal6 - 16 mEq/LFT[facility] RemisolAST [Catalytic activity/Vol]37 [iU]/dNormal5 - 43 Int._Unit/L[facility] Remisol Bilirubin [Mass/Vol]1.2 mg/dLHigh0.0 - 1.1 mg/dLFTMC RemisolBilirubin.direct [Mass/Vol]mg/dLNormal0.1 - 0.4 mg/dLFTMC RemisolBilirubin.indirect [Mass or moles/Vol]Unable to Calculate mg/dLInvalid Interpretation Code0.1 - 0.9 mg/dL [facility] RemisolCalcium [Mass/Vol]8.8 mg/dLLow8.9 - 11.1 mg/dLFTMC RemisolChloride [Moles/Vol]100 mmol/YWlw933 - 111 mmol/LFTMC RemisolCO2 [Moles/Vol]24 mmol/L Lxokcx23 - 31 mmol/LFTMC RemisolCreatinine [Mass/Vol]1.0 mg/dLNormal0.5 - 1.3 mg/dLFTMC RemisolGFR/1.73 sq M.predicted among blacks MDRD (S/P/Bld) [Vol rate/Area]mL/min/1.73 l9Ibpgrt>=59mL/min/1.73 m2[facility] Chem SGFR/1.73 sq M.predicted among non-blacks MDRD (S/P/Bld) [Vol rate/Area]mL/min/1.73 d4Taeufa >=59mL/min/1.73 m2[facility] Chem SGlobulin (S) [Mass/Vol]3.6 g/dLNormal1.4 - 4.0 gm/dLFTMC RemisolGlucose [Mass/Vol]104 mg/jPWgixmc95 - 199 mg/dLFTMC Remisol Potassium [Moles/Vol]3.6 mmol/LNormal3.5 - 5.3 mmol/LFTMC RemisolProtein [Mass/Vol]7.9 g/dLHigh6.0 - 7.8 gm/dLFTMC RemisolSodium [Moles/Vol]134 mmol/LLow 135 - 145 mmol/LFTMC RemisolUrea nitrogen [Mass/Vol]10 mg/dLNormal5 - 21 mg/dL [facility] RemisolUrea nitrogen/Creatinine [Mass ratio]10 mg/fcAlqlxe08 - 20[facility] RemisolHEMATOLOGYOrdered By: Amairani Jenkins on 42-31-2829Dxbtvudenylx Ql (Bld) Present (01/31/23 2:10 PM)NormalFTMC HemeManSSErythrocyte distribution width (RBC) [Ratio] 15.8 %High10.9 - 14.2 %[facility] HemeAutoSSHematocrit (Bld) [Volume fraction]31.7 % Low34.0 - 46.0 %[facility] HemeAutoSSHemoglobin (Bld) [Mass/Vol]9.8 g/dLLow12.0 - 16.0 gm/dLFTMC HemeAutoSSHypochromia Auto Ql (Bld)Present (01/31/23 2:10 PM)NormalFTMC HemeManSSMCH (RBC) [Entitic mass]22.8 pgLow27.0 - 34.0 pgFTMC HemeAutoSSMCHC (RBC) [Mass/Vol]30.9 g/dLLow31.4 - 36.0 gm/dLFTMC HemeAutoSSMCV (RBC) [Entitic vol]73.9 fLLow80.0 - 100.0 fLFTMC HemeAutoSS Morphology Blair (Bld) [Interp]See Morphology (01/31/23 2:10 PM)NormalFTMC HemeManSSPlatelet mean volume (Bld) [Entitic vol]7.0 fLNormal6.4 - 10.8 fLFTMC HemeAutoSSPlatelets (Bld) [#/Vol]471.0 E9/WPqelgc606.0 - 500.0 E9/LFTMC HemeAutoSSRBC (Bld) [#/Vol]4.3 E12/LNormal4.3 - 5.9 E12/LFTMC HemeAutoSSWBC corrected for nucl RBC Auto (Bld) [#/Vol]7.6 E9/LNormal4.0 - 11.0 E9/LFTMC HemeAutoSSHEMATOLOGYOrdered By: SYSTEM SYSTEM on 01-31-2023 Basophils/100 WBC (Bld)0.7 %Normal0.0 - 2.0 %[facility] HemeAutoSSBasophils/Leukocytes Auto (Bld) [Pure # fraction]0.1 E9/LNormal0.0 - 0.2 E9/LFTMC HemeAutoSS Eosinophils/100 WBC (Bld)1.1 %Normal0.0 - 8.0 %[facility] HemeAutoSS Eosinophils/Leukocytes Auto (Bld) [Pure # fraction]0.1 E9/LNormal0.0 - 0.5 E9/L [facility] HemeAutoSSLymphocytes/100 WBC (Bld)31.7 %Cdudhm94.0 - 50.0 %[facility] HemeAutoSS Lymphocytes/Leukocytes Auto (Bld) [Pure # fraction]2.4 E9/LNormal1.0 - 4.0 E9/L [facility] HemeAutoSSMonocytes/100 WBC (Bld)9.1 %Normal4.0 - 14.0 %[facility] HemeAutoSS Monocytes/Leukocytes Auto (Bld) [Pure # fraction]0.7 E9/LNormal0.2 - 1.0 E9/L [facility] HemeAutoSSNeutrophils/100 WBC (Bld)57.4 %Kbojmg62.0 - 75.0 %[facility] HemeAutoSS Neutrophils/Leukocytes Auto (Bld) [Pure # fraction]4.3 E9/LNormal2.0 - 7.5 E9/L [facility] HemeAutoSSSEROLOGYOrdered By: Patricia Newton on 81-70-9876HJX.beta subunit (U) [Moles/Vol]NegativeNormalFTMC Man SeroURINALYSISOrdered By: Solomon Leal on 88-48-8936Gfaycypvr Ql (U)Negative (01/31/23 1:57 PM)NormalNegativeFT UA Auto SSClarity (U)Clear (01/31/23 1:57 PM)NormalClearFTMC UA Auto SSColor (U)Yellow (01/31/23 1:57 PM)NormalYellowFTMC UA Auto SSEpithelial cells.squamous LM.HPF (Urine sed) [#/Area]3-4 /HPFNormal0-2/HPFFTMC UA Auto SSGlucose Test strip (U) [Mass/Vol]Negative (01/31/23 1:57 PM)NormalNegativeFT UA Auto SSHemoglobin Ql (U)Negative (01/31/23 1:57 PM)NormalNegativeFTMC UA Auto SSKetones (U) [Mass/Vol]Negative (01/31/23 1:57 PM)NormalNegativeFT UA Auto SSLithium.plasma/Wilkinson.RBC (Bld) [Mass ratio]0-3 /HPFNormal0-3/HPFFTMC UA Auto SSNitrite Ql (U)Negative (01/31/23 1:57 PM)NormalNegativeOKLAHOMA [facility] [place] UA Auto SSpH (U)6.0 *NA* (01/31/23 1:57 PM)Invalid Interpretation Code5.0 - 9.0[facility] [place] UA Auto SSProtein (U) [Mass/Vol]Negative (01/31/23 1:57 PM)NormalNegativeOKLAHOMA CITY [facility] [place] UA Auto SSSpecific gravity (U) [Rel density] 1.010 *NA* (01/31/23 1:57 PM)Invalid Interpretation Code1.005 - 1.030[facility] [place] UA Auto SSUA Spec DescClean Catch (01/31/23 1:57 PM)NormalOKLAHOMA CITY VETER[facility] [place] UA Auto SSUrobilinogen Qn (U)0.7238898 {Aspen'U}/dL Normal0.0 - 1.0 EU/dLOKLAHOMA CITY VETER[facility] [place] UA Auto SSWBC Auto Ql (U)Negative (01/31/23 1:57 PM)NormalNegativeOKLAHOMA [facility] [place] UA Auto SSWBC LM.HPF (Urine sed) [#/Area]0-5 /HPFNormal0-5/HPFOKLAHOMA CITY VETERANS [facility] [place] UA Auto SSBLOOD BANKOrdered By: Teena Quiroz on 76-71-8835QVO/Rh InterpPositiveInvalid Interpretation CodeOKLAHOMA CITY VETERANS [facility] [place] BB SubsectionABSC Gel InterpNegative (12/30/22 11:28 AM)NormalOKLAHOMA CITY [facility] [place] BB SubsectionCHEMISTRYOrdered By: SYSTEM SYSTEM on 18-40-6004Wcydv gap [Moles/Vol]12 mmol/LNormal6 - 16 mEq/LFTMC RemisolCalcium [Mass/Vol]8.6 mg/dLLow8.9 - 11.1 mg/dLFTMC RemisolChloride [Moles/Vol]103 mmol/L Aguzxv968 - 111 mmol/LFT[facility] RemisolCO2 [Moles/Vol]26 mmol/LKlhxik14 - 31 mmol/L [facility] RemisolCreatinine [Mass/Vol]0.9 mg/dLNormal0.5 - 1.3 mg/dLFT[facility] Remisol GFR/1.73 sq M.predicted among blacks MDRD (S/P/Bld) [Vol rate/Area]mL/min/1.73 z5Ycerzn>=59mL/min/1.73 m2FT Chem SGFR/1.73 sq M.predicted among non-blacks MDRD (S/P/Bld) [Vol rate/Area]mL/min/1.73 x1Gsjpcg>=59mL/min/1.73 m2FT Chem S Glucose [Mass/Vol]105 mg/jPSupzms66 - 199 mg/dLFTMC RemisolPotassium [Moles/Vol] 3.8 mmol/LNormal3.5 - 5.3 mmol/LFT[facility] RemisolSodium [Moles/Vol]137 mmol/LNormal 135 - 145 mmol/LFTMC RemisolUrea nitrogen [Mass/Vol]17 mg/dLNormal5 - 21 mg/dL [facility] RemisolUrea nitrogen/Creatinine [Mass ratio]19 mg/adGocjsa52 - 20[facility] RemisolCOAGULATIONOrdered By: Courtney Tang on 73-78-4738gWGT Coag (PPP) [Time]31.5 cPxupit77.1 - 36.5 second(s)[facility] Auto CoagINR Coag (PPP) [Relative time]1.0 {INR}Invalid Interpretation CodeFTMC Auto CoagPT Coag (PPP) [Time]11.7 sNormal 9.4 - 12.5 second(s)[facility] Auto CoagHEMATOLOGYOrdered By: SYSTEM SYSTEM on 75-38-3496Simiyuqxk/100 WBC (Bld)1.2 %Normal0.0 - 2.0 %[facility] HemeAutoSS Basophils/Leukocytes Auto (Bld) [Pure # fraction]0.1 E9/LNormal0.0 - 0.2 E9/L [facility] HemeAutoSSEosinophils/100 WBC (Bld)4.1 %Normal0.0 - 8.0 %[facility] HemeAutoSS Eosinophils/Leukocytes Auto (Bld) [Pure # fraction]0.2 E9/LNormal0.0 - 0.5 E9/L [facility] HemeAutoSSLymphocytes/100 WBC (Bld)40.5 %Xesvwf86.0 - 50.0 %[facility] HemeAutoSS Lymphocytes/Leukocytes Auto (Bld) [Pure # fraction]2.3 E9/LNormal1.0 - 4.0 E9/L [facility] HemeAutoSSMonocytes/100 WBC (Bld)7.6 %Normal4.0 - 14.0 %[facility] HemeAutoSS Monocytes/Leukocytes Auto (Bld) [Pure # fraction]0.4 E9/LNormal0.2 - 1.0 E9/L [facility] HemeAutoSSNeutrophils/100 WBC (Bld)46.6 %Lovhlv69.0 - 75.0 %[facility] HemeAutoSS Neutrophils/Leukocytes Auto (Bld) [Pure # fraction]2.6 E9/LNormal2.0 - 7.5 E9/L [facility] HemeAutoSSHEMATOLOGYOrdered By: Courtney Tang on 84-01-8120Sxzfmgrbvkz distribution width (RBC) [Ratio]14.1 %Otjpsp23.9 - 14.2 %[facility] HemeAutoSS Hematocrit (Bld) [Volume fraction]31.5 %Low34.0 - 46.0 %[facility] HemeAutoSS Hemoglobin (Bld) [Mass/Vol]10.0 g/dLLow12.0 - 16.0 gm/dLFTMC HemeAutoSSMCH (RBC) [Entitic mass]25.3 pgLow27.0 - 34.0 pgFTMC HemeAutoSSMCHC (RBC) [Mass/Vol]31.8 g/rOXqtgpr24.4 - 36.0 gm/dLFTMC HemeAutoSSMCV (RBC) [Entitic vol]79.6 fLLow80.0 - 100.0 fLFTMC HemeAutoSSPlatelet mean volume (Bld) [Entitic vol]7.7 fLNormal6.4 - 10.8 fLFTMC HemeAutoSSPlatelets (Bld) [#/Vol]264.0 E9/WTdtmgb210.0 - 500.0 E9/LFT[facility] HemeAutoSSRBC (Bld) [#/Vol]4.0 E12/LLow4.3 - 5.9 E12/LFT[facility] HemeAutoSS WBC corrected for nucl RBC Auto (Bld) [#/Vol]5.7 E9/LNormal4.0 - 11.0 E9/LFT[facility] HemeAutoSSURINALYSISOrdered By: Courtney Tang on 50-90-6955Iwsmhdgx LM Ql (Urine sed)Trace /HPFNormalTrace/HPFFT UA Auto SSBilirubin Ql (U)Negative (12/30/22 8:53 AM)NormalNegativeOKLAHOMA CITY [facility] [place] UA Auto SSClarity (U)Clear (12/30/22 8:53 AM)NormalClearFOKLAHOMA [facility] [place] UA Auto SSColor (U)Yellow (12/30/22 8:53 AM)NormalYellowFT UA Auto SSEpithelial cells.squamous LM.HPF (Urine sed) [#/Area]0-2 /HPFNormal0-2/HPFOKLAHOMA CITY VETERANS [facility] [place] UA Auto SSGlucose Test strip (U) [Mass/Vol]Negative (12/30/22 8:53 AM)NormalNegativeOKLAHOMA [facility] [place] UA Auto SSHemoglobin Ql (U)2+ *ABN* (12/30/22 8:53 AM)Invalid Interpretation CodeNegativeOKLAHOMA CITY [facility] [place] UA Auto SSKetones (U) [Mass/Vol]Negative (12/30/22 8:53 AM)NormalNegativeOKLAHOMA CITY [facility] [place] UA Auto SSLithium.plasma/Wilkinson.RBC (Bld) [Mass ratio]4-20 /HPFNormal0-3/HPFOKLAHOMA CITY VETERANS [facility] [place] UA Auto SSNitrite Ql (U)Negative (12/30/22 8:53 AM)NormalNegativeOKLAHOMA CITY [facility] [place] UA Auto SSpH (U)6.0 *NA* (12/30/22 8:53 AM)Invalid Interpretation Code5.0 - 9.0[facility] [place] UA Auto SSProtein (U) [Mass/Vol]Negative (12/30/22 8:53 AM)NormalNegativeOKLAHOMA CITY [facility] [place] UA Auto SSSpecific gravity (U) [Rel density] 1.025 *NA* (12/30/22 8:53 AM)Invalid Interpretation Code1.005 - 1.030[facility] [place] UA Auto SSUA Spec DescClean Catch (12/30/22 8:53 AM)NormalOKLAHOMA CITY VETERANS [facility] [place] UA Auto SSUrobilinogen Qn (U)0.9581043 {Aspen'U}/dL Normal0.0 - 1.0 EU/dLOKLAHOMA CITY VETERANS [facility] [place] UA Auto SSWBC Auto Ql (U)Negative (12/30/22 8:53 AM)NormalNegativeOKLAHOMA [facility] [place] UA Auto SSWBC LM.HPF (Urine sed) [#/Area]0-5 /HPFNormal0-5/HPFFT UA Auto SSOffice Visiton [id number]-up [id number] Juhi Cope 1995 F Date Provider Department Center 12/05/2022 [id number], G[facility] None Chart Close Cosign Required by: Opal Ross MD[MONGD] No family history on file Level of Service:72742 OR OFFICE/OUTPATIENT ESTABLISHED LOW MDM 20-29 MIN (GE,GC) Reason for Visit and Comments: Blood Pressure Check [299][facility] SHSProgress Noteon 05-77-4941Cwbdkavz Note Attestation signed by Opal Ross MD at 12/05/2022 3:19 PM [facility]: This patient was [facility] in [facility] by the resident. I reviewed and agree with the care provided by the resident during or immediately following the visit including the patient's medical history, the resident's finding in the physical exam, patient's diagnosis and treatment plan. Juhi Cope 12/05/2022 27 y.o. Chief Complaint Patient [...] about 4 weeks (around 01/02/2023) for Visit .[facility] CenterProgress NoteVital signs BP 127/87 Weight 149.2lb Pulse 106 Temp 96.7NoMcKenzie County Healthcare SystemProgress Noteon 73-25-7128Xpoteodn Note Late entry due to patient care. Resident Diallo notified of B.P 138/96 heart rate 119 around 1236 see flowsheet. Also notified checked in 1 hour via orders and B.P 143/87 pulse 111. Clarified if should check in 1 hour according to orders. . Also notified patient has discharge order in. Resident Lacy states No on rechecking. Ok to discharge. Will make patient aware.[facility] SHSProgress NotePOSTPARTUM VAGINAL DELIVERY POST DAY # 2 Juhi Cope, 27 y.o. This patient was seen [...] (homozygous), FVL+Prothrombin (heterozygous), Antithrombin III, APLS Assessment/Plan: Juhi Cope is PPD # 2 s/p Care [...] Name: DO Vanessa Zambrano DO 12/02/2022, 5:09 [facility]42on 80-91-23625277.5mm flanges given to patient. Encouraged her to call for observation of pump session and smaller flanges. Martha in NICU to assist with personal pump.Normal [facility] SHSCARECOORDon 16-80-3417YCOVXZULQ61 year old admitted for induction of labor [...] to home. Denies any concerns at this time.[facility] SHSProgress Noteon 77-25-1321Spylqvrr Note NOTE - VAGINAL DELIVERY POST DAY #1 Juhi Cope, 27 y.o. This patient was seen [...] (homozygous), FVL+Prothrombin (heterozygous), Antithrombin III, APLS Assessment/Plan: Juhi Cope is PPD #1 s/p Care - [...] with more than 50% of the total vgux-kp-vuff time of the visit in counseling/coordination of care. , 9:22 [facility] TEA39fq 18-65-314023Tncem given to patient and educated how to use and to bring to [facility] UVX91Zcegec pump use indicated for this pt. Due to: infant in [facility] Hospital breast pump, supplies kit, swabs [...] pump Told patient to check with in [facility] for smaller flange sizesFlushing Hospital Medical Center SHSLabor and Delivery Noteon 05-55-8966Qoxxw and Delivery Note Attestation with edits by Carol Bowden MD at 12/01/2022 8:22 AM Procedures or Surgery: I was present for all morales elements of the procedure or surgery as described in the resident note. Vaginal Delivery Note Department of Obstetrics and Gynecology Patient: Juhi Cope : 1995 Date of delivery: 11/30/2022 Pre-operative Diagnosis: Juhi Sidhu at 35w1d 1. <37 weeks 2. 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 Bowden; Dr. Kramer Information: Information for the patient's : Francie Cope [[id number]] Information for the patient's : Francie Cope [[id number]] Description: normal Meconium Noted: No Anesthesia: epidural anesthesia Complications: None Application and Delivery: Juhi Sidhu at 35w1d admitted for IOL-PreEwSF. Her [...] Immunity Status: No results found for: CAITY Kramer, 11/30/2022, 4:04 AMNSanford [facility] Center SHSProgress Noteon 49-39-3366Hioyqgii NoteFoley catheter inserted by Andi Bacon RN, catheter drained and emptied for 900cc. Catheter secured to leg.[facility] SHSProgress NotePatient up to bathroom but remains unable to void. Bladder scan completed and reads >570. Sent secure message to Dr. Ruiz letting her know the above. Instructed to place chauhan catheter.[facility] CenterProgress Note Secure message sent to Dr. Gamez stating patient is having difficulty voiding, patient's perineum is very swollen, and that patient was straight cathed for 950ml at noon. Received order for benadryl to help with swelling. [facility] Medical CenterProess NoteNutrition rescreen completed. Chart reviewed. Patient to be monitored and followed by the diet site technician. Suad Samuels, CRISSFlushing Hospital Medical Center SHSProgress NotePatient unable to void, last straight cathed at 0400. Bladder scan obtained for >928 ml, fundus +2 and shifted to right. Patient straight cathed on attempt x2 by Andi Bacon RN for 950cc. Will continue to monitor.[facility] SHSCAREPLNon 58-07-8415LRNVFUREms patient will continue to make cervical change. Clotilde Mg, DIALLOFlushing Hospital Medical Center SHSLaboratory - Hematology and Cell countsOrdered By: Lucrecia Cervantes on 41-40-3289Tkxtmsrgz (Bld) [#/Vol]386 10*3/uL140 - 440 10*3/uLSumma HealthPlatelets (Bld) [#/Vol]Ordered By: Lucrecia Cervantes on 95-76-5095Ibyzedtmtwlpls and review of laboratory resultsNoSioux Center Health. agalactiae DNA TENA+probe Ql (Unsp spec)on 11-29-2022 Group B Strep ScreenNot detectedNot [facility]ron Children's HospitalInterpretation and review of laboratory resultsNoMarymount HospitalMethodology: real-time PCRSumSelect Medical Specialty Hospital - Cleveland-Fairhillmma HealthABO and Rh group Confirm Nom (Bld)on [id number] group Nom (Bld)OSma HealthD Ag Ql (RBC)PositiveSMain Campus Medical Center HealthBlood type and Crossmatch panel (Bld)on 63-06-6543OIX group Nom (Bld)OSbarnesville hospital HealthBlood group antibody screen GEL QlNegativeSumme HealthD Ag Ql (RBC)PositiveSMain Campus Medical Center HealthCBC panel Auto (Bld)Ordered By: Lauren Ayers on 03-52-3189Msdqoyxzvfy distribution width (RBC) [Ratio]13.3 %11.5 - 14.5 %[facility] HealthHematocrit (Bld) [Volume fraction]33.8 %Low35.0 - 47.0 %[facility] HealthHemoglobin (Bld) [Mass/Vol] 11.2 g/dLLow11.7 - 16.0 g/dLSbarnesville hospital HealthInterpretation and review of laboratory resultsAbnormalSPremier Health Miami Valley Hospital NorthH (RBC) [Entitic mass]28.0 pg26.0 - 34.0 pgSPremier Health Miami Valley Hospital NorthHC (RBC) [Mass/Vol]33.1 %32.0 - 36.0 %[facility] HospitalMCV (RBC) [Entitic vol]84.4 fL80.0 - 98.0 fLmma HealthPlatelet mean volume (Bld) [Entitic vol]8.3 fL7.4 - 12.4 fLSumma HealthPlatelets (Bld) [#/Vol]319 10*3/uL140 - 440 10*3/uL Summa HealthRBC (Bld) [#/Vol]4.00 10*6/uL3.8 - 5.20 10*6/uLSumma HealthWBC (Bld) [#/Vol]18.9 10*3/uLHigh3.6 - 10.7 10*3/uLmma [facility] HealthComprehensive metabolic 1998 panelon 13-34-8123Gtznsgr [Mass/Vol]3.9 g/dL3.5 - 5.0 g/dLSumme HealthALP [Catalytic activity/Vol]201 U/LHigh38 - 126 U/LSumma HealthALT [Catalytic activity/Vol]15 U/L0 - 34 U/LSumma HealthAnion gap [Moles/Vol]7 mmol/L3 - 13 mmol/LSumma HealthAST [Catalytic activity/Vol]28 U/L15 - 46 U/L Summa HealthBilirubin [Mass/Vol]0.9 mg/dL0.2 - 1.3 mg/dLSumma HealthCalcium [Mass/Vol]8.2 mg/dLLow8.4 - 10.4 mg/dLSumma HealthChloride [Moles/Vol]109 mmol/L High98 - 107 mmol/LSumma HealthCO2 [Moles/Vol]17 mmol/LLow22 - 30 mmol/LSumma HealthCreatinine [Mass/Vol]0.53 mg/dL0.52 - 1.04 mg/dLSumma HealthGFR/1.73 sq M.predicted MDRD (S/P/Bld) [Vol rate/Area]- [facility] Charles HospitalComment on above: Calculation based on the Chronic Kidney Disease Epidemiology Collaboration (CKD- EPI) equation refitwithout adjustment for raceGlucose [Mass/Vol]158 mg/mEBctd19 - 100 mg/dLSumma HealthInterpretation and review of laboratory resultsAbnormal Summa HealthPotassium [Moles/Vol]4.1 mmol/L3.5 - 5.1 mmol/LSumma HealthProtein [Mass/Vol]7.5 g/dL6.3 - 8.2 g/dLSumma HealthSodium [Moles/Vol]133 mmol/UOsj088 - 145 mmol/LSumma HealthUrea nitrogen [Mass/Vol]5 mg/dLLow7 - 17 mg/dLSumma HealthSumma HealthLaboratory - Hematology and Cell countsOrdered By: Shruthi Fontana on 25-47-3066Lvkdirdcv (Bld) [#/Vol]335 10*3/uL140 - 440 10*3/uLSumma HealthPlatelets (Bld) [#/Vol]Ordered By: Shruthi Fontana on 11-28-2022 Interpretation and review of laboratory resultsNormSumma Health Barber[facility] Campus Health CHEMISTRYOrdered By: ActiveSec on 80-64-9889Kqdn T4 index Calc [Mass/Vol] 5.98 ng/dLNormal5.90 - 13.10 ng/dLFTMC RemisolT4 [Mass/Vol]7.5 ug/dLNormal4.6 - 9.1 mcg/dLFTMC RemisolT4 uptake [Mass/Vol]31.9 %Low32.0 - 48.4 %[facility] RemisolTSH Qn1.65 m[IU]/LNormal0.34 - 5.60 mcIU/mLFTMC RemisolAlbumin [Mass/Vol]3.1 g/dLLow 3.3 - 5.0 gm/dLFTMC RemisolAlbumin/Globulin [Mass ratio]0.8 {ratio}Low1.1 - 2.2 [facility] RemisolALP [Catalytic activity/Vol]145 [iU]/dHigh21 - 98 Int._Unit/LFTMC RemisolALT No additional P-5'-P [Catalytic activity/Vol]13 [iU]/dNormal6 - 46 Int._Unit/LFTMC RemisolAnion gap [Moles/Vol]16 mmol/LNormal6 - 16 mEq/LFTMC RemisolAST [Catalytic activity/Vol]22 [iU]/dNormal5 - 43 Int._Unit/LFTMC Remisol Bilirubin [Mass/Vol]1.0 mg/dLNormal0.0 - 1.1 mg/dLFTMC RemisolBilirubin.direct [Mass/Vol]mg/dLNormal0.1 - 0.4 mg/dLFTMC RemisolBilirubin.indirect [Mass or moles/Vol]Unable to Calculate mg/dLInvalid Interpretation Code0.1 - 0.9 mg/dL [facility] RemisolChloride [Moles/Vol]102 mmol/SUudqjs268 - 111 mmol/LFTMC RemisolCO2 [Moles/Vol]18 mmol/LLow21 - 31 mmol/LFTMC RemisolCreatinine [Mass/Vol]0.6 mg/dL Normal0.5 - 1.3 mg/dLFTMC RemisolGFR/1.73 sq M.predicted among blacks MDRD (S/P/Bld) [Vol rate/Area]mL/min/1.73 l1Szoqvf>=59mL/min/1.73 m2[facility] Chem S GFR/1.73 sq M.predicted among non-blacks MDRD (S/P/Bld) [Vol rate/Area] mL/min/1.73 q9Fhzesw>=59mL/min/1.73 m2[facility] [place] Chem SGlobulin (S) [Mass/Vol]4.0 g/dL Normal1.4 - 4.0 gm/dLOKLAHOMA CITY VETERANS [facility]IST[facility] [place] RemisolPotassium [Moles/Vol]3.7 mmol/LNormal3.5 - 5.3 mmol/LFTMC RemisolProtein [Mass/Vol]7.1 g/dLNormal6.0 - 7.8 gm/dLOKLAHOMA CITY VETERANS [facility] [place] Remisol Sodium [Moles/Vol]132 mmol/QDcu120 - 145 mmol/LFTMC RemisolUrate [Mass/Vol]4.9 mg/dLNormal2.2 - 7.4 mg/dLOKLAHOMA CITY VETERANS [facility] [place] RemisolUrea nitrogen [Mass/Vol]7 mg/dLNormal5 - 21 mg/dLOKLAHOMA [facility] [place] RemisolCOAGULATIONOrdered By: Amairani Jenkins on [id number] Coag (PPP) [Time]25.3 nMvenbd96.1 - 36.5 second(s)[facility] [place] Auto Coag Fibrin+Fibrinogen fragments (S) [Mass/Vol]>10 and <40 *ABN* (11/27/22 3:14 PM)Invalid Interpretation Code<10FT Man SeroFibrinogen Coag (PPP) [Mass/Vol]539 mg/gUTzje086 - 393 mg/dLOKLAH[facility] [place] Auto CoagINR Coag (PPP) [Relative time]0.9 {INR}Invalid Interpretation CodeFT Auto CoagPT Coag (PPP) [Time]10.1 sNormal9.4 - 12.5 second(s)[facility] [place] Auto CoagHEMATOLOGYOrdered By: Raquel Arteaga on [id number] distribution width (RBC) [Ratio]12.9 %Cibdnh07.9 - 14.2 % FT HemeAutoSSHematocrit (Bld) [Volume fraction]34.2 %Cvpcze77.0 - 46.0 %FT HemeAutoSSHemoglobin (Bld) [Mass/Vol]11.0 g/dLLow12.0 - 16.0 gm/dLFTMC HemeAutoSSMCH (RBC) [Entitic mass]27.3 rkYlbagk20.0 - 34.0 pgFTMC HemeAutoSSMCHC (RBC) [Mass/Vol]32.3 g/fNWibqwx22.4 - 36.0 gm/dLFTMC HemeAutoSSMCV (RBC) [Entitic vol]84.6 rFSwuihb68.0 - 100.0 fLFTMC HemeAutoSSPlatelet mean volume (Bld) [Entitic vol]8.2 fLNormal6.4 - 10.8 fLFTMC HemeAutoSSPlatelets (Bld) [#/Vol]273.0 E9/MPlqwsd993.0 - 500.0 E9/LFTMC HemeAutoSSRBC (Bld) [#/Vol]4.0 E12/LLow4.3 - 5.9 E12/LFTMC HemeAutoSSWBC corrected for nucl RBC Auto (Bld) [#/Vol]15.7 E9/LHigh4.0 - 11.0 E9/LFTMC HemeAutoSSComment on above:Result Comment: Slide reviewed by ts Unable to obtain accurate platelet count due to platelet clumping. Platelet count estimate appears normal on slide..URINALYSISOrdered By: Amairani Jenkins on [id number] Ql (U)Negative (11/27/22 1:55 PM)NormalNegativeOKLAHOMA [facility] [place] UA Auto SSClarity (U)Clear (11/27/22 1:55 PM)NormalClearFOKLAHOMA [facility] [place] U[facility] Auto SSColor (U)Yellow (11/27/22 1:55 PM)NormalYellowFT UA Auto SSEpithelial cells.squamous LM.HPF (Urine sed) [#/Area]3-4 /HPFNormal0-2/HPFFTMC UA Auto SSGlucose Test strip (U) [Mass/Vol]Negative (11/27/22 1:55 PM)NormalNegativeFT UA Auto SSHemoglobin Ql (U)1+ *ABN* (11/27/22 1:55 PM)Invalid Interpretation CodeNegativeFT UA Auto SSKetones (U) [Mass/Vol]Negative (11/27/22 1:55 PM)NormalNegativeFT UA Auto SSLithium.plasma/Wilkinson.RBC (Bld) [Mass ratio]4-20 /HPFNormal0-3/HPFOKLAHOMA CITY VET[facility] [place] UA Auto SSNitrite Ql (U)Negative (11/27/22 1:55 PM)NormalNegativeOKLAHOMA CITY [facility] UA Auto SSpH (U)6.5 *NA* (11/27/22 1:55 PM)Invalid Interpretation Code5.0 - 9.0[place] [facility] UA Auto SSProtein (U) [Mass/Vol]Negative (11/27/22 1:55 PM)NormalNegativeOKLAHOMA CITY [facility] UA Auto SSSpecific gravity (U) [Rel density] 1.010 *NA* (11/27/22 1:55 PM)Invalid Interpretation Code1.005 - 1.030[place] [facility] UA Auto SSUA Spec DescClean Catch (11/27/22 1:55 PM)NormalOKLAHOMA CITY [facility] [place] UA Auto SSUrobilinogen Qn (U)0.8813767 {Aspen'U}/dL Normal0.0 - 1.0 EU/dLOKLAHOMA CITY [facility] [place] UA Auto SSWBC Auto Ql (U)Negative (11/27/22 1:55 PM)NormalNegativeOKLAHOMA CITY [facility] UA Auto SSWBC LM.HPF (Urine sed) [#/Area]0-5 /HPFNormal0-5/HPFOKLAHOMA CITY [facility] [place] UA Auto SSCHEMISTRYOrdered By: SYSTEM SYSTEM on 07-14-2022 Albumin [Mass/Vol]3.6 g/dLNormal3.3 - 5.0 gm/dLOKLAHOMA CITY V[facility] [place] RemisolAlbumin/Globulin [Mass ratio]1.1 {ratio}Normal1.1 - 2.2[facility] RemisolALP [Catalytic activity/Vol]41 [iU]/qZqifhm16 - 98 Int._Unit/LFTMC RemisolALT No additional P-5'-P [Catalytic activity/Vol]19 [iU]/dNormal6 - 46 Int._Unit/LFTMC RemisolAnion gap [Moles/Vol] 11 mmol/LNormal6 - 16 mEq/L[facility] RemisolAST [Catalytic activity/Vol]21 [iU]/d Normal5 - 43 Int._Unit/LFT[facility] RemisolBilirubin [Mass/Vol]0.7 mg/dLNormal0.0 - 1.1 mg/dLFTMC RemisolBilirubin.direct [Mass/Vol]0.1 mg/dLNormal0.1 - 0.4 mg/dLFTMC RemisolBilirubin.indirect [Mass or moles/Vol]0.6 mg/dLNormal0.1 - 0.9 mg/dLFTMC RemisolCalcium [Mass/Vol]8.9 mg/dLNormal8.9 - 11.1 mg/dLFTMC RemisolChloride [Moles/Vol]107 mmol/ZUjtxxd182 - 111 mmol/LFTMC RemisolCO2 [Moles/Vol]22 mmol/L Ytlnpu84 - 31 mmol/LFTMC RemisolCreatinine [Mass/Vol]0.6 mg/dLNormal0.5 - 1.3 mg/dLFTMC RemisolGFR/1.73 sq M.predicted among blacks MDRD (S/P/Bld) [Vol rate/Area]mL/min/1.73 z2Dahede>=59mL/min/1.73 m2[facility] Chem SGFR/1.73 sq M.predicted among non-blacks MDRD (S/P/Bld) [Vol rate/Area]mL/min/1.73 z0Wyunzp >=59mL/min/1.73 m2[facility] Chem SGlobulin (S) [Mass/Vol]3.3 g/dLNormal1.4 - 4.0 gm/dLFTMC RemisolGlucose [Mass/Vol]99 mg/yEDfqile97 - 199 mg/dLFTMC Remisol Potassium [Moles/Vol]3.5 mmol/LNormal3.5 - 5.3 mmol/LFTMC RemisolProtein [Mass/Vol]6.9 g/dLNormal6.0 - 7.8 gm/dLFTMC RemisolSodium [Moles/Vol]136 mmol/L Assnud078 - 145 mmol/LFTMC RemisolUrea nitrogen [Mass/Vol]8 mg/dLNormal5 - 21 mg/dLFTMC RemisolUrea nitrogen/Creatinine [Mass ratio]13 mg/baZldrlc27 - 20[facility] RemisolHEMATOLOGYOrdered By: SYSTEM SYSTEM on 97-60-5500Egrvqhtix/100 WBC (Bld) 0.3 %Normal0.0 - 2.0 %[facility] HemeAutoSSBasophils/Leukocytes Auto (Bld) [Pure # fraction]0.0 E9/LNormal0.0 - 0.2 E9/LFTMC HemeAutoSSEosinophils/100 WBC (Bld)0.0 %Normal0.0 - 8.0 %[facility] HemeAutoSSEosinophils/Leukocytes Auto (Bld) [Pure # fraction]0.0 E9/LNormal0.0 - 0.5 E9/LFTMC HemeAutoSSLymphocytes/100 WBC (Bld)6.9 %Low14.0 - 50.0 %[facility] HemeAutoSSLymphocytes/Leukocytes Auto (Bld) [Pure # fraction]1.0 E9/LNormal1.0 - 4.0 E9/LFTMC HemeAutoSSMonocytes/100 WBC (Bld)4.1 % Normal4.0 - 14.0 %[facility] HemeAutoSSMonocytes/Leukocytes Auto (Bld) [Pure # fraction]0.6 E9/LNormal0.2 - 1.0 E9/LFT[facility] HemeAutoSSNeutrophils/100 WBC (Bld) 88.7 %High36.0 - 75.0 %[facility] HemeAutoSSNeutrophils/Leukocytes Auto (Bld) [Pure # fraction]12.3 E9/LHigh2.0 - 7.5 E9/LFTMC HemeAutoSSHEMATOLOGYOrdered By: Teena Quiroz on 87-54-4908Jirgtzhiofw distribution width (RBC) [Ratio]12.9 %Normal 10.9 - 14.2 %[facility] HemeAutoSSHematocrit (Bld) [Volume fraction]33.6 %Low34.0 - 46.0 %[facility] HemeAutoSSHemoglobin (Bld) [Mass/Vol]11.5 g/dLLow12.0 - 16.0 gm/dL [facility] HemeAutoSSMCH (RBC) [Entitic mass]28.5 akXjataq37.0 - 34.0 pgFTMC HemeAutoSSMCHC (RBC) [Mass/Vol]34.1 g/hCOlgwbw79.4 - 36.0 gm/dLFTMC HemeAutoSS MCV (RBC) [Entitic vol]83.5 gPGzdnfu51.0 - 100.0 fLFT HemeAutoSSPlatelet mean volume (Bld) [Entitic vol]8.1 fLNormal6.4 - 10.8 fLOKLAHOMA CITY [facility] [place] HemeAutoSSPlatelets (Bld) [#/Vol]271.0 E9/KCgeexc743.0 - 500.0 E9/LFC HemeAutoSSRBC (Bld) [#/Vol] 4.0 E12/LLow4.3 - 5.9 E12/LFOKLAHOMA STATE [facility] HemeAutoSSWBC corrected for nucl RBC Auto (Bld) [#/Vol]13.9 E9/LHigh4.0 - 11.0 E9/LFOKLAHOMA STATE [facility] HemeAutoSSURINALYSISOrdered By: Deirdre Gilliam on 88-03-4787Trpvewpg LM Ql (Urine sed)Trace /HPFNormalTrace/HPFFT UA Auto SSBilirubin Ql (U)Negative (07/14/22 5:00 AM)NormalNegativeOKLAHOMA CITY [facility] [place] UA Auto SSClarity (U)Clear (07/14/22 5:00 AM)NormalClearFOKLAHOMA STATE [facility] UA Auto SSColor (U)Yellow (07/14/22 5:00 AM)NormalYellowOKLAHOMA CITY [facility] [place] [facility] UA Auto SSEpithelial cells.squamous LM.HPF (Urine sed) [#/Area]3-4 /HPFNormal0-2/HPFFT UA Auto SSGlucose Test strip (U) [Mass/Vol]Negative (07/14/22 5:00 AM)NormalNegativeOKLAHOMA CITY [facility] UA Auto SSHemoglobin Ql (U)Trace *ABN* (07/14/22 5:00 AM)Invalid Interpretation CodeNegativeOKLAHOMA CITY [facility] [place] UA Auto SSKetones (U) [Mass/Vol]Negative (07/14/22 5:00 AM)NormalNegativeOKLAHOMA CITY [facility] UA Auto SSLithium.plasma/Wilkinson.RBC (Bld) [Mass ratio]0-3 /HPFNormal0-3/HPFFT UA Auto SSMucus Ql (Urine sed)Trace (07/14/22 5:00 AM)NormalFT UA Auto SSNitrite Ql (U)Negative (07/14/22 5:00 AM)NormalNegativeOKLAHOMA CITY [facility] UA Auto SSpH (U)6.0 *NA* (07/14/22 5:00 AM)Invalid Interpretation Code5.0 - 9.0[place] [facility] UA Auto SSProtein (U) [Mass/Vol]Negative (07/14/22 5:00 AM)NormalNegativeOKLAHOMA CITY [facility] UA Auto SSSpecific gravity (U) [Rel density] 1.020 *NA* (07/14/22 5:00 AM)Invalid Interpretation Code1.005 - 1.030[place] [facility] UA Auto SSUA Spec DescClean Catch (07/14/22 5:00 AM)NormalOKLAHOMA CITY V[facility] UA Auto SSUrobilinogen Qn (U)0.5700157 {Aspen'U}/dLNormal0.0 - 1.0 EU/dLOKLAHOMA CITY [facility] UA Auto SSWBC Auto Ql (U)Negative (07/14/22 5:00 AM)NormalNegativeOKLAHOMA CITY [facility] UA Auto SSWBC LM.HPF (Urine sed) [#/Area]0-5 /HPFNormal0-5/HPFOKLAHOMA CITY [facility] [place] UA Auto SSCHEMISTRYOrdered By: SYSTEM SYSTEM on 48-60-0749Mqxyvmv [Mass/Vol]4.4 g/dLNormal3.3 - 5.0 gm/dLFT[facility] Remisol Albumin/Globulin [Mass ratio]1.1 {ratio}Normal1.1 - 2.2[facility] RemisolALP [Catalytic activity/Vol]64 [iU]/aYsxoof36 - 98 Int._Unit/LFT[facility] RemisolALT No additional P-5'-P [Catalytic activity/Vol]107 [iU]/dHigh6 - 46 Int._Unit/L[facility] RemisolAST [Catalytic activity/Vol]63 [iU]/dHigh5 - 43 Int._Unit/L[facility] Remisol Bilirubin [Mass/Vol]1.5 mg/dLHigh0.0 - 1.1 mg/dLFTMC RemisolBilirubin.direct [Mass/Vol]0.2 mg/dLNormal0.1 - 0.4 mg/dLFT[facility] RemisolBilirubin.indirect [Mass or moles/Vol]1.3 mg/dLHigh0.1 - 0.9 mg/dLFT[facility] RemisolCholesterol [Mass/Vol]193 mg/uFGubqfh961 - 200 mg/dLFT[facility] RemisolCholesterol in HDL [Mass/Vol]64 mg/dL Invalid Interpretation CodeFTMC RemisolCholesterol in LDL [Mass/Vol]116 mg/dL Normal<=129mg/dLFT[facility] RemisolCholesterol in VLDL [Mass/Vol]13 mg/dLNormal7 - 40 mg/dLFT[facility] RemisolGlobulin (S) [Mass/Vol]3.9 g/dLNormal1.4 - 4.0 gm/dL[facility] RemisolProtein [Mass/Vol]8.3 g/dLHigh6.0 - 7.8 gm/dLFT[facility] RemisolTriglyceride [Mass/Vol]67 mg/dLNormal<=149mg/dLFT[facility] RemisolCOAGULATIONOrdered By: Courtney Case on 41-10-3959PGH Coag (PPP) [Relative time]1.0 {INR}Invalid Interpretation Code [facility] Auto CoagPT Coag (PPP) [Time]12.4 sKnahyb20.2 - 12.9 second(s)[facility] Auto CoagHEMATOLOGYOrdered By: SYSTEM SYSTEM on 02-06-6762Qzxzbtqhr/100 WBC (Bld)0.7 %Normal0.0 - 2.0 %[facility] HemeAutoSSBasophils/Leukocytes Auto (Bld) [Pure # fraction]0.0 E9/LNormal0.0 - 0.2 E9/LFTMC HemeAutoSSEosinophils/100 WBC (Bld)3.2 %Normal0.0 - 8.0 %[facility] HemeAutoSSEosinophils/Leukocytes Auto (Bld) [Pure # fraction]0.2 E9/LNormal0.0 - 0.5 E9/LFTMC HemeAutoSSLymphocytes/100 WBC (Bld) 31.9 %Wkaqlf07.0 - 50.0 %[facility] HemeAutoSSLymphocytes/Leukocytes Auto (Bld) [Pure # fraction]1.9 E9/LNormal1.0 - 4.0 E9/L[facility] HemeAutoSSMonocytes/100 WBC (Bld)9.1 %Normal4.0 - 14.0 %[facility] HemeAutoSSMonocytes/Leukocytes Auto (Bld) [Pure # fraction]0.5 E9/LNormal0.2 - 1.0 E9/LFT[facility] HemeAutoSSNeutrophils/100 WBC (Bld) 55.1 %Fekbkf26.0 - 75.0 %[facility] HemeAutoSSNeutrophils/Leukocytes Auto (Bld) [Pure # fraction]3.3 E9/LNormal2.0 - 7.5 E9/LFT[facility] HemeAutoSSHEMATOLOGYOrdered By: Kayleigh Ward on 64-96-6286Zfhsfqxebyq distribution width (RBC) [Ratio]12.9 % Wrgpiw03.9 - 14.2 %[facility] HemeAutoSSHematocrit (Bld) [Volume fraction]40.1 %Normal 34.0 - 46.0 %[facility] HemeAutoSSHemoglobin (Bld) [Mass/Vol]13.2 g/cPSditlx51.0 - 16.0 gm/dLFTMC HemeAutoSSMCH (RBC) [Entitic mass]27.7 krLqwetc95.0 - 34.0 pgFTMC HemeAutoSSMCHC (RBC) [Mass/Vol]32.8 g/zGAvlnzp49.4 - 36.0 gm/dLFTMC HemeAutoSS MCV (RBC) [Entitic vol]84.3 xQHgkwhe90.0 - 100.0 fLFTMC HemeAutoSSPlatelet mean volume (Bld) [Entitic vol]8.5 fLNormal6.4 - 10.8 fLFT[facility] HemeAutoSSPlatelets (Bld) [#/Vol]299.0 E9/DJuatvy537.0 - 500.0 E9/L[facility] HemeAutoSSRBC (Bld) [#/Vol] 4.8 E12/LNormal4.3 - 5.9 E12/L[facility] HemeAutoSSWBC corrected for nucl RBC Auto (Bld) [#/Vol]5.9 E9/LNormal4.0 - 11.0 E9/L[facility] HemeAutoSSLMPon 25-73-8364Qxjv risk assessmenta) No falls within the last oadpED-MQKLC-Lzzdnp 320 Work Phone: Last menstrual period start pyltobhupaCY-NRBNL-Ypirmd 320 Work Phone: Tobacco use status CPHSb) LbZL-PVOPK-Ejnynb 320 Work Phone: OB/[employer]OC[employer]ATE [employer] OF [employer]OM[employer] - Office Visiton 90-94-0171FJ/[employer]OCI[employer]OM[employer] - Office VisitDiagnoses/Problems Assessed Endometriosis (617.9) (N80.9) Orders Start: Orilissa 200 MG Oral Tablet; take 1 tablet by mouth twice a day Provider Impressions 26 yo 1. 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 History of Present Hanshro24 yo presents as a follow up for [...] again engaged x 1 year working at [email or web address] in [place] Review of Systems Constitutional: no fever, no [...] hours Vitals Vital Signs Recorded: 09Feb2022 11:41AM Rkomatwf182 Trhvxlctn72 Height5 ft 2 in Ovyswl022 lb BMI Ofrssiseyh67.51 kg/m2 BSA Calculated1.61 Tobacco Useb) No Fall [...] DO; Feb 09 2022 12:21PM EST (Author) NormalUH TouchworksXR KNEE LEFT (MIN 4 VIEWS)on 67-25-2760EY KNEE LEFT (MIN 4 VIEWS)EXAM: XR KNEE LEFT (MIN 4 VIEWS) HISTORY: [...] by: Tashi Lopez MD Signed by: Tashi oLpez MD 09/29/21 Final resultNormalMercy Kpc Promise Of VicksburgOB/ASSOCIATE [facility] OF WOM[facility] - Office Visiton 59-17-3068QN/ASSOC[employer] - Office VisitDiagnoses/Problems Assessed Anxiety (300.00) (F41.9) Orders Start: FLUoxetine HCl - 20 MG Oral Capsule; TAKE 1 CAPSULE Daily Provider Impressions 26 yo 1. 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 History of Present Ccaalov89 yo with endometriosis was on norethindrone d/c'd [...] Every 6 hours Vitals Vital Signs Recorded: 25Qvz6921 01:19PM Tjawgcke676 Xcxjvekzt84 Height5 ft 2 in Rqrxbt980 lb BMI Yqzbofrdyh72.58 kg/m2 BSA Calculated1.53 Tobacco Useb) No Fall Screeninga) No falls within the last year AOA49Mog3232 Pain Scale0 Signatures Electronically signed by : Charlene Rodriguez DO; Jun 03 2021 10:55AM EST (Author) NormalUH TouchworksChlamydia sp identified Org specific cx Nom (Genital specimen)Ordered By: Jackelyn Dela Cruz on 34-20-5684Jogfmmil Chlamydia Screen NegativeNegativeSCommunity Regional Medical CenterHBV surface Ag IA Qlon 27-99-3102Tshljekl Hepatitis B Surface AgNegativeNegative, None DetectedSumma Delaware County HospitalHIV 1+2 Ab and HIV1 p24 Ag IA.rapid Nom (S/P/Bld)on 74-69-7624STV-1/HIV-2 AbNegativeSCommunity Regional Medical CenterNo Panel Informationon 87-84-0538Lqaeowfr Gonorrhea ScreenNegativeNegativeSCommunity Regional Medical Center External Rubella IGG QuantitationPositiveSuWhite Hospital HealthNo Panel InformationOrdered By: Jackelyn Dela Cruz on 03-15-6910Mruuy HealthRebanner gateway medical centern RPR Ql (S)on 04-80-3510Ckbjuqaq RPRNon-ReactiveBorderline, Nonreactive, Weakly Reactive, EquivocalSumma HealthOB/ASSOCIATE [facility] - Office Visiton 52-60-9731MG/ASSOCI[employer] WOM[employer] - Office VisitDiagnoses/Problems Assessed Endometriosis (617.9) (N80.9) Never smoker Orders Stop: Norethindrone Acetate 5 MG Oral Tablet Tobacco Use Screening; Status:Complete; Done: 76Snr9263 Provider Impressions 26 yo 1. 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 declined -CATY,ART EDUCATOR LMP 04/11/21 History of Present Oprwsnb46 yo with endometriosis bleeding once per month, [...] DO; Apr 20 2021 11:04AM EST (Author) NormalUH TouchworksTobacco Screening.on 16-88-6148Lfqz risk assessmenta) No falls within the last vyotBH-XIDRZ-Npspqm 320 Work Phone: Last menstrual period start dijk04Tdy5946 IH-RNVVL-Jooped 320 Work Phone: Tobacco Screening.b) GlMP-JWWPT-Gorcyo 320 Work Phone: Radiologyon 35-86-0751YZ Kidney - bilateralNormal WG-Hxadrih-Lfcfzbohe Work Phone: us RENAL BILATon 10-46-9939MS RENAL BILATMRN: [id number] Patient Name: JUHI COPE STUDY: US RENAL BILAT; 04/14/2021 1:14 pm INDICATION: Recurrent UTI. COMPARISON: None. ACCESSION NUMBER(S): [id number] ORDERING CLINICIAN: TERI CHAU TECHNIQUE: Multiple images of the kidneys [...] renal ultrasound. Electronically signed by: GENEVIEVE BREEN MDButler [facility] Office Visit (Urology)on 41-30-9529Oonpve-up visitDiagnoses/Problems Assessed Recurrent UTI (599.0) (N39.0) Orders Recurrent UTI Start: Nitrofurantoin Monohyd Macro 100 MG Oral Capsule; TAKE 1 CAPSULE Other Please take one capsule after sexual intercourse to prevent UTI Rx By: Teri Chau; Dispense: 30 Days ; #:30 Capsule; Refill: 11;For: Recurrent UTI; ROSY = N; Verified Transmission to [facility] Ultrasound Kidney Bilateral; Status:Hold For - Scheduling; Requested for:23Gad4680; Perform:[facility]; Due:10Eri3859; Last Updated By:Isela Terrazas; 04/01/2021 9:16:17 AM;Ordered; For:Recurrent UTI; Ordered By:Teri Chau; Radiologist to Determine Optimal Study : Y What are the patient's signs and symptoms? : Recurrent UTI Start: Nitrofurantoin Monohyd Macro 100 MG Oral Capsule; TAKE 1 CAPSULE Twice daily PRN as needed for UTI Rx By: Teri Chau; Dispense: 5 Days ; #:10 Capsule; Refill: 15;For: Recurrent UTI; ROSY = N; Verified Transmission to [facility] Provider Impressions 26 year old female with history of endometriosis presents today via telehealth as a new patient forevaluation of recurrent UTIs. She reports getting UTIs at least once per month, noting occasional nocturia. Symptoms include burning, frequency, and back pain. She states that some UTIs are related to sexual intercourse but most are not. Patient reports she saw Dr. Booth at [facility] in [place], noting she was only treated with medications and urethral dilation for a supposed stricture.Denies gross hematuria. Patient is a non-smoker. Urine culture from [facility] on 03/04/21 was positive for E. coli, [...] has no other questions at this time. Patricia Stokes, olena scribing for and in the presence of Dr. Chau. Teri Stokes, caitlyn all documentation by the scribe, Patricia Ruano, was under my direction and is an accurate representation of the discussion, physical exam, assessment and plan. Chief Complaint An interactive audio and video telecommunication system which permits real time communications between the patient (at the originating site) and provider (at the distant site) was utilized to providethis telehealth service. Verbal consent was requested and obtained from JUHI COPE on this date, 04/01/2021 08:40 AM , for a telehealth visit. NPV - recurrent UTI History of Present Smjdbur56 year old female with history of endometriosis presents today via telehealth as a new patient for evaluation of recurrent UTIs. She reports getting UTIs at least once per month, noting occasional nocturia. Symptoms include burning, frequency, and back pain. She states that some UTIs are related to sexual intercourse but most are not. Patient reports she saw Dr. Booth at [facility] in [place], noting she was only treated with medications and urethral dilationfor a supposed stricture. Denies gross hematuria. Patient [...] mood and affect. Signature (more content not included)...NormalUH TouchworksNM GASTRIC EMPTYING SOLIDon 07-59-3293FI GASTRIC EMPTYING SOLID* * *Final Report* * * DATE OF EXAM: Nov 05 2020 12:26PM [facility] 0017 - [place] GASTRIC EMPTYING SOLID / PROCEDURE REASON: Nausea [...] 4 HOURS IS CONSISTENT WITH MILD GASTROPARESIS. Skiving Machine Operator: [facility] Transcribe Date/Time: Nov 05 2020 1:09P Dictated by : SIDDHARTH PEREA MD This examination was interpreted and the report reviewed and electronically signed by: SIDDHARTH PEREA MD on Nov 05 2020 1:24PM EST [id number] Health Deaconess [facility] POSTPROC EVALon 32-15-8045QFTN POSTPROC EVALHNO ID: [id number] Author: Austin Story Service: ? Author Type: Anesthesiologist Type: Anesthesia Postprocedure Evaluation Filed: 10/25/2020 2:52 PM Note Text: POST ANESTHESIA EVALUATION NOTE : 1995 Procedure Summary Date: 10/25/20 Room / Location: ENDO 01 / AV ENDO Anesthesia Start: 1324 Anesthesia Stop: 1352 Procedures: COLONOSCOPY (N/A Colon Sigmoid) EGD (N/A Throat) Diagnosis: Gastroesophageal reflux disease without esophagitis Surgeons: Malcolm Cruz Responsible Provider: Austin Story Anesthesia Type: [...] care. SIGNATURE: Austin Story MD PATIENT NAME: Juhi Cope DATE: October 25, 2020 TIME: 2:52 PM CSN: [id number] HospitalANES PRE-OPon 48-87-3071JQQM PRE-OPHNO ID: [id number] Author: Austni Story Service: ? Author Type: Anesthesiologist Type: Anesthesia Preprocedure Evaluation Filed: 10/25/2020 1:09 PM Note Text: ANESTHESIOLOGY DAY OF SURGERY NOTE : 1995 Procedure(s) (LRB): COLONOSCOPY (N/A) EGD (N/A) Surgeon(s): Malcolm Cruz Estimated body mass index is 21.95 kg/m? as calculated from the following: Height as of 10/08/20: 157.5 cm (5' 2 ). Weight as of 10/08/20: 54.4 kg (120 lb). Most recent hematocrit and potassium results: No results found for this basename: HCT,HEMATOCRIT,K,POTASSIUM Relevant Problems CARDIO (+) HTN (hypertension) (+) [...] Surgery/Procedure. SIGNATURE: Austin Story MD PATIENT NAME: Juhi Cope DATE: October 25, 2020 TIME: 1:08 PM CSN: [id number] Medical Center PATHOLOGY 10-25-2020 SURGICAL PATHOLOGYSpecimen originated from [facility] Specimen #: [id number] Submitting Physician: MALCOLM CRUZ MD FINAL DIAGNOSIS 1. Small bowel, biopsy (A) - Small bowel mucosa with no pathologic diagnostic abnormality; negative for celiac disease, granulomas and dysplasia. 2. Stomach, biopsy (B) - Gastric oxyntic-type mucosa with no pathologic diagnostic abnormality; see comment. /formerly [facility] 10/26/2020 COMMENT 2. No microorganisms [...] cassette. Gross examination performed at [facility], [address] [place] [address] EJ 10/25/2020 7:59:40 PM Date of Report: 10/26/2020 Date of Procedure: 10/25/2020 Date of Receipt: 10/25/2020 Submitted by: MALCOLM CRUZ MD Location: AVEN Diagnostic interpretation performed at [facility], [address] [place] [address]. CLIA Number: [id number] Clinic Reference LabComment on above:Performed By: #### S #### See report for performing lab information.SURGICAL PATHOLOGYSpecimen originated from [facility] Specimen #: [id number] Submitting Physician: MALCOLM CRUZ MD FINAL DIAGNOSIS 1. Small bowel, biopsy (A) - Small bowel mucosa with no pathologic diagnostic abnormality; negative for celiac disease, granulomas and dysplasia. 2. Stomach, biopsy (B) - Gastric oxyntic-type mucosa with no pathologic diagnostic abnormality; see comment. /formerly [facility] 10/26/2020 COMMENT 2. No microorganisms [...] cassette. Gross examination performed at [facility], [address] [place] [address] EJ 10/25/2020 7:59:40 PM Date of Report: 10/26/2020 Date of Procedure: 10/25/2020 Date of Receipt: 10/25/2020 Submitted by: MALCOLM CRUZ MD Location: AVEN Diagnostic interpretation performed at [facility], [address] [facility] [address]. [place] Number: [id number] HospitalABO/RH GROUP TESTon 13-96-4529GMU HENRY COUNTY HOSPITALONoAtrium Health University CityComment on above: Performed By: #### VERAB #### [facility] [address] [place], [place] [address]PZ TYPEPositiveRiverside Medical CenterComment on above: Performed By: #### VERAB #### [facility] [address] [place], [place] [address]Rmguy Surgical Pathology Departmenton [id number] Surgical Pathology DepartmentNamJUHI Orozco Pathologist: ASHLEY HURTADO MD Date of Procedure: 09/01/2020 Date Received: 09/01/2020 Date Reported 09/03/2020 Submitting Physician: CHARLENE RODRIGUEZ D.O. Location: [facility] External # FINAL DIAGNOSIS A. LEFT PELVIC [...] or group listed as making the Final Interpretation/Diagnosis certifies that they have reviewed this case. [...] D. Right pelvic sidewall peritoneum are 2 jfis-ria-qcd, irregular fragments of tissue measuring 1.3 x [...] in toto in one cassette. 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 PMHx: endometriosis Surg Hx: diagnostic laparoscopy, appendectomy (2016) Meds: Meloxicam, G[place]-Linyah, Norethindrone acetate Social Hx: No tobacco, no [...] the note. I personally evaluated the patient [id number] Attending Provider Inpatient Certification StatementObservation patient/other outpatient visits Electronic Signatures: Charlene Rodriguez (DO) (Signed 01-Sep-2020 10:04) Authored: Note Completion Co-Signer: History of Present Illness, Home Medication Review, Impression/Procedure, ERAS, Physical Exam, Consent, Note Completion Chelsie Leal ( (Resident)) (Signed 31-Aug-2020 15:44) Authored: History of Present Illness, Home Medication Review, Impression/Procedure, ERAS, Physical Exam, Consent, Note Completion Last Updated: 01-Sep-2020 10:04 by Charlene Rodriguez ()[facility] CenterHomegoing Instructionson [id number] InstructionsAdditional Instructions: Handouts Given: Topic 1Anesthesia Homegoing Instructions Topic 2Surgical Site Infection Handout Topic 3New Medication Education Topic 4Suggamedex handout Electronic Signatures: Aminata Gomez) (Signed 01-Sep-2020 16:07) Authored: Additional Instructions Last Updated: 01-Sep-2020 16:07 by Aminata Gomez (DIALLO)[facility] CenterPatient Profile - Preop v2on [id number] Profile - Preop [id number]: Initial Info: How to be Addressedalexis Spoken Language PreferredEnglish Are you currently using the Personal Electronic Health Record or [employer] Stated Reason for Admissionseeing if my endometriosis is back Primary Contact Name and Numberlogan [phone] Patient Belongingsclothing locker glasses with bf Medications Brought to Hospitalno General Health: Weight in kg55.6 kilogram(s) Weight in moa724.5 pound(s) Weight Methodactual (measured) Scale Typestanding Height in feet5 feet Height in inches2 inch(es) Height in cm157.4 centimeter(s) Height Methodstated BMI (kg/m2)22.442 square meter Patient or Family Member Reaction to Anesthesiano previous reaction Blood Avoidance/Restrictionsnone Previous Transfusion Reactionno Health Mgmt: Symptoms/Conditions Managed at Homeendometriosis Are You no Are You Currently Breastfeedingno (1) Barriers to Managing Healthnone Relationship/Environ: Living Arrangementshouse Lives Withparent(s) Resource/Environmental Concernsnone [facility] Anticipated at Transitionnone Substance: [...] Learning Preferencesverbal instruction Cultural Considerationsnone Developmental Considerationsnone Christianity Considerationsnone Other learner availableno Falls RiskPatient location auto qualifies him/her for HIGH RISK. Are there any cultural, spiritual, mormonism practices/values/needs that are important for us to [...] Physical - Surgery > 30 days 01-Sep-2020 03:42[facility]Preop Checkliston 29-54-0230Blwwq Checklist Preop Checklist: Preop Checklist: Arrival [id number] Arrival Time12:30 Procedure Typelaparoscopic endometriosis excision NPO Rhhpej73-Odt-3744 00:00 ID Band Onyes Allergy Bandno known allergies Consent Signedyes H&P Completepending Anesthesia Assessment Completedpending EKG Performedsee results tab Chest X-Ray Performedsee results tab HCG Urine TestComplete Chlorhexadine Bath Givennot applicable Nasal Antiseptic Appliednot applicable Hair Washedyes Soap and water bath with hair shampoo the night before surgeryyes Hat placed on prior to transportnot applicable SCD's Appliedsent to OR SANCHEZ Hose Appliedyes Denturesnot applicable Prostheticsnot applicable Hearing [...] Last Updated: 01-Sep-2020 12:35 by Sierra Kraft (RN)[facility] CenterANTIBODY IDENT.on [id number] IDENT.SEE BELOWRiverside Medical CenterComment on above:Result Comment: NO CLINICALLY SIGNIFICANT ANTIBODIES IDENTIFIED.Performed By: #### ABID #### [facility] [address] [place], [place] [address]DMOsg 33-57-8544Qfyxqlfmnnu distribution width (RBC) [Ratio] 12.1 %Kxjffo66.5 - 14.5[facility] HospitalComment on above:Performed By: #### CBC #### [address] [id number] (Bld) [Volume fraction]39.6 %Genimh66.0 - 46.0[facility] HospitalComment on above:Performed By: #### CBC #### [address] [id number] (Bld) [Mass/Vol]12.6 g/vNJiebxs46.0 - 16.0[facility] HospitalComment on above:Performed By: #### CBC #### [address] [id number] (RBC) [Mass/Vol]31.8 g/dLLow32.0 - 36.0[facility] HospitalComment on above:Performed By: #### CBC #### [address] [id number] (RBC) [Entitic vol]90 lYRilpvd18 - 100Saint [facility] HospitalComment on above:Performed By: #### CBC #### [address] [id number] (Bld) [#/Vol]333 10*3/fYEaddxk771 - 450Saint [facility] HospitalComment on above:Performed By: #### CBC #### [address] [id number] x10E12/LNormal4.00 - 5.20[facility] Comment on above:Performed By: #### CBC #### [address] [id number] (Bld) [#/Vol]5.6 10*3/uLNormal4.4 - 11.3[facility] HospitalComment on above:Performed By: #### CBC #### [address] [id number] 2019, SCREEN ASYMPTOMATICon [id number]-CoV-2 (COVID-19) RNA TENA+probe Ql (Unsp spec)Not detectedNormalNot DetectedSaint James HospitalComment on above:Result Comment: This assay is designed to detect [...] patient management decisions. Fact sheet for providers: https://www.fda.gov/media/979850/download Fact sheet for patients: https://www.fda.gov/media/323714/download This test has received FDA Emergency Use Authorization (EUA) and has been verified by [facility] ([facility]). This test is only authorized for the duration of time that circumstances exist to justify the authorization of the emergency use of in vitro diagnostic tests for the detection of SARS-CoV-2 virus and/or diagnosis of COVID-19 infection under section 564(b)(1) of the Act, 21 U.S.C. 360bbb-3(b)(1), unless the authorization is terminated or revoked sooner. [facility] is certified under CLIA-88 as qualified to perform high complexity testing. Testing is performed in the [facility] laboratories located at [address] [place] [address].Performed By: #### COVSC #### [place], [place] [address]Lab Specimen SourceNasal, NasopharyngealNoDenver SpringsComment on above:Performed By: #### COVSC #### [place], [place] [address]TYPE + SCREENon [id number] TYPEONoAtrium Health University CityComment on above:Performed By: #### T+S #### [facility] [address] [place] [id number] TYPEPositiveRiverside Medical CenterComment on above: Performed By: #### T+S #### [facility] [address] [place] [id number] TYPECanceledOrtonville HospitalComment on above:Order Comment: TEST TYPE + SCREEN WAS CANCELLED, 08/30/2020 13:37 JOP. Performed By: #### T+S #### [facility] [address] [place], [place] [address]XH TYPECanceledNormalUH Specialty Hospital At MonmouthComment on above:Order Comment: TEST TYPE + SCREEN WAS CANCELLED, 08/30/2020 13:37 JOP. Performed By: #### T+S #### [facility] [address] [place], [place] [address]FVQUjl [id number]:Juhi Cope MRN: Height:5' 2 (1.575 m) Weight:120 [...] for the following basenames: K,HCT Progress Notes ([facility] AV[facility]): Jaquelin Wesley Ma 10/19/2020 2:35 [...] ?chicken, turkey, fish; eggs; smooth peanut butter; bread/rolls/biscuits/croissants/zafar toast without seeds (not multigrain); pretzels; waffles, Wolof toast and pancakes; white rice, noodles, pasta, macaroni, peeled cooked potatoes; Special K, Rice Krispies or [place] Flakes cereals; ripe bananas; melons (except watermelon [...] carbonated beverages such as chi aislinn or lemon-turtle mountain soda; Gatorade? or other sports drinks (not [...] make sure you have a responsible adult truck driver supervisor to take you home after procedure. Due to having sedation, you may not drive the rest of the day. ? If you need to reschedule, please call [phone] ?Date/Provider Dr Cruz Procedure:colonoscpy Facility:[facility] Prep ordered( if aware):miralax Knowledge of prep instructions:posted to 1World Onlineperkins Diabetic:no Blood Thinners:no Pacemaker with defibrillator:no left message for patient to return call. Nurse triage please give below message. PLEASE READ PATIENT INSTRUCTIONS BELOW. THANK YOU.[facility] HebronPROGRESS on [id number] ID: [id number] Author: Leon Perkins (Rt) Fito Blanchard Service: Radiology Author Type: Logging Supervisor Type: Progress Notes Filed: 07/29/2020 11:06 AM Note Text: Radiology Service Progress Note PATIENT NAME: Juhi Cope DATE OF SERVICE: July 29, 2020 [...] BY: RT Daya July 29, 2020 11:01 [facility]XR [facility] 2V SUPINE W UPR/DECUB/CTLon [id number] ABD 2V SUPINE W UPR/DECUB/CTL* * *Final Report* * * DATE OF [...] structures are normal. No other significant abnormality. Skiving Machine Operator: DAVID Transcribe Date/Time: Jul 29 2020 11:19A Dictated by : LALI ORNELAS MD This examination was interpreted and the report reviewed and electronically signed by: LALI ORNELAS MD on Jul 29 2020 11:19AM EST [id number] Brownsboro Hospital Vital Signs Date TimeVital SignValuePerforming UiawgwdqjQjhdkvhz66-81-3697 16:04-0400Body mass index (BMI) [Ratio]29.78 kg/d5Cqezz Kiesha DO Work Phone: [phone])[address]10-22-2025 16:04-0400Body svodlp08.85 kgCorey Kiesha Work Phone: 1(450)[address] [place], [place] 5322710-22-2025 16:04-0400Diastolic blood rbjsypxi98 mm[Hg][facility] Work Phone: 1(082)[facility] [place], [place] [address]Wjxyrkkjil76-75-5167 16:04-0400Systolic blood qczyugay198 mm[Hg][facility] Work Phone: 1(559)[address] [place], [place] 5322710-16-2025 10:34-0400Body mass index (BMI) [Ratio]29.26 kg/b5YdbrhjtvMadhuri Monroy MD Work Phone: 1(087)[address] [place], [place] 7746510-16-2025 10:34-0400Body kzruzr01.58 kgMadhuri Monroy MD Work Phone: 1(905)[address] [place], [place] [address]6510-16-2025 10:34-0400Diastolic blood mm[Hg]Madhuri Monroy MD Work Phone: 1(274)[address] [place], [place] [address]6510-16-2025 10:34-0400Systolic blood ywzfpwyx828 mm[Hg]Madhuri Monroy MD Work Phone: 1(098)[address] [place], [place] 7746510-10-2025 14:48-0400Body xgrmwo095.5 Daphnie Denise MD Work Phone: 1(589)[address] [place], [place] [address]6510-10-2025 14:48-0400Body mass index (BMI) [Ratio]29.04 kg/w4PqdfzdMine Denise MD Work Phone: 1(951)[address] [place], [place] 7746510-10-2025 14:48-0400Body czoorx25.03 kgMine Denise MD Work Phone: 1(357)[address] [place], [place] [address]746510-10-2025 14:48-0400Diastolic blood dwluwcgz21 mm[Hg]Mine Denise MD Work Phone: 1(419)[address] [place], [place] [address]746510-10-2025 14:48-0400Heart rate 104 /minMine Denise MD Work Phone: 1(805)[address] [place], [place] 7746510-10-2025 14:48-0400Systolic blood pvrmnpuw445 mm[Hg]Mine Denise MD Work Phone: 1(141)[address] [place], [place] [address]746510-09-2025 15:54-0400Body mass index (BMI) [Ratio]29.41 kg/m5Ugtneugw Elsa STACKER OPERATOR Work Phone: 1(525)[address] [place], [place] 5322710-09-2025 15:54-0400Body ljndij58.94 kgKristina Elsa STACKER OPERATOR Work Phone: 1([phone])[address] [place], [place] 5322710-09-2025 15:54-0400Diastolic blood umvanrht25 mm[Hg]Steph Elsa STACKER OPERATOR Work Phone: 1(849)[address] [place], [place] 5322710-09-2025 15:54-0400Systolic blood qbzypkih023 mm[Hg]Steph Elsa STACKER OPERATOR Work Phone: 1(322)[address] [place], [place] 5322710-02-2025 15:37-0400Body mass index (BMI) [Ratio]29.23 kg/l5Ltwmxksu Elsa STACKER OPERATOR Work Phone: 1(750)[address] [place], [place] 5322710-02-2025 15:37-0400Body mxesda08.48 kgKristina Elsa STACKER OPERATOR Work Phone: 1(959)[address] [place], [place] 5322710-02-2025 15:37-0400Diastolic blood solnpqhu41 mm[Hg]Steph Elsa STACKER OPERATOR Work Phone: 1(419)[address] [place] [address]-02-2025 15:37-0400Systolic blood jlzjuzsn014 mm[Hg]Steph Keane STACKER OPERATOR Work Phone: [facility] CenterBvlplawoql69-49-1975 15:55-0400Body mass index (BMI) [Ratio]29.45 kg/x2ChdwmiTeena Sarmiento RN Work Phone: 1(096)890-[address] [place], [place] 7[address]109-29-2025 15:55-0400Body unszuh89.03 kgAngejose roberto Sarmiento RN Work Phone: 1(492)597-[address] [place], [place] 7[address]109-17-2025 14:32-0400Body mass index (BMI) [Ratio]27.82 kg/f1Lohdh Kiesha DO Work Phone: [facility] CenterDzicacyzwp40-98-9014 14:32-0400Body kg Nathan Kiesha DO Work Phone: [facility] CenterYykdjznngy14-50-1451 14:32-0400Diastolic blood vlbseuhi76 mm[Hg]Nathan Kiesha DO Work Phone: [facility] CenterNnfmszwtvb57-91-2218 14:32-0400Systolic blood ahkcyccz822 mm[Hg]Nathan Kiesha DO Work Phone: [facility] CenterLtcejfqmhn49-63-2831 15:36-0400Body tmetge597.5 cmGeorge Charlotteftan DO Work Phone: [facility]OShriners [facility]als for ChildrenLnslpnmkle24-45-9213 15:36-0400Body mass index (BMI) [Ratio]27.62 kg/k5Wlwcle Kaftan DO Work Phone: [facility] CenterQodjlzmsiv91-33-5364 15:36-0400Body temperature 97.11 [degF]Eliceo Charlotteftan DO Work Phone: [place] [address]Wnmxaqdcdf20-77-0323 15:36-0400Body .49 kgGeorge Charlotteftan DO Work Phone: [place] [address]Zzerwgqusf88-52-0518 15:36-0400Diastolic blood ftibghvi86 mm[Hg]Eliceo Charlotteftan DO Work Phone: [place] [address]Vhqkyocyme38-62-0459 15:36-0400Heart rate97 /min Eliceo Beltran DO Work Phone: [facility] CenterPaxzuyynqu16-91-6841 15:36-6318FnH5% (BldA) [Mass fraction]98 %Eliceo Beltran DO Work Phone: [facility] CenterQcmwcbwisx54-45-9604 15:36-0400Systolic blood rpemwodl630 mm[Hg]Eliceo Beltran DO Work Phone: [facility] CenterVcuehxwdqx27-98-5323 15:42-0400Body mass index (BMI) [Ratio]26.48 kg/s0Exqgn Kiesha DO Work Phone: 1(599)650-[address] [place], [place] [address]Iyhnajsnaf03-57-7891 15:42-0400Body .68 kgCorey Kiesha DO Work Phone: 1(359)969-[address] [place], [place] [address]Vzbjbvsrjl45-33-8628 15:42-0400Diastolic blood jdxrbija41 mm[Hg]Nathan Kiesha DO Work Phone: 1(520)[facility] [place], [place] [address]Iltipcceyo63-01-6187 15:42-0400Systolic blood djtowsxj501 mm[Hg]Nathan Kiesha DO Work Phone: 1(384)[facility] [place], [place] [address]Wsboeqofhu11-81-3222 14:33-0400Body mass index (BMI) [Ratio]26.73 kg/x3Ceceb Kiesha DO Work Phone: 1(305)790-[address] [place], [place] [address]Vehzljkhgb92-99-3698 14:33-0400Body ayrjho37.28 kgCorey Kiesha DO Work Phone: 1(463)[facility] [place], [place] [address]Tztiawwzrw30-52-6611 14:33-0400Diastolic blood fqhdqcur07 mm[Hg]Nathan Kiesha DO Work Phone: 1(137)682-[address] [place], [place] [address]Ozfaevaioe96-52-7686 14:33-0400Systolic blood fahegvdz408 mm[Hg]Nathan Kiesha DO Work Phone: [facility] CenterMtxekqkakf93-02-6179 14:45-0400Body mass index (BMI) [Ratio]25.24 kg/h8Hrhgt Kiesha DO Work Phone: 1(419)[address] [place], [place] 5322706-30-2025 14:45-0400Body .6 kg Nathan Kiesha DO Work Phone: [facility] CenterUudyiakiff62-29-9983 14:45-0400Diastolic blood mm[Hg]Nathan Kiesha DO Work Phone: [facility] CenterStisjurwvd97-24-6605 14:45-0400Systolic blood yyuuehuv226 mm[Hg]Nathan Kiesha DO Work Phone: 1([phone] [place], [place] [address]Udgkruvgoi85-07-2446 10:29-0400Body mass index (BMI) [Ratio]25.68 kg/m2[facility]06-06-2025 10:29-0400Body yitgpi03.69 kgSt. [facility] Center02-24-2025 15:08-0500Body mass index (BMI) [Ratio]25.99 kg/b1Avodx Kiesha DO Work Phone: [facility] CenterWktyygimxe33-27-1449 15:08-0500Body .47 kgCorey Kiesha DO Work Phone: [facility] CenterWetafzzawx50-56-7651 15:08-0500Diastolic blood cgheiicm49 mm[Hg]Nathan Kiesha DO Work Phone: [facility] CenterJjxlumuqwh00-49-4256 15:08-0500Systolic blood mm[Hg]Nathan Kiesha DO Work Phone: [facility] CenterEkqkkkwnjc95-36-2423 15:53-0500Body qwwfet689.5 cmGeorjose manuel Porterftan DO Work Phone: [facility] for ChildrenHpzmgwmidq40-65-2653 15:53-0500Body mass index (BMI) [Ratio]25.61 kg/l3Pobiypmartha Healyan DO Work Phone: [facility] for ChildrenLgabonxkty65-09-4343 15:53-0500Body temperature 97.11 [degF]Eliceo Beltran DO Work Phone: [facility] for ChildrenSielgwazcd35-76-9817 15:53-0500Body ufdkke49.5 kg Eliceo Beltran DO Work Phone: noSh[facility] for ChildrenZzkcvtazhy14-71-1662 15:53-0500Diastolic blood ctqkaldp34 mm[Hg]Eliceo Beltran DO Work Phone: noShrin[facility] for ChildrenCiszgqygfx00-79-5947 15:53-0500Heart rate51 /min Eliceo Beltran DO Work Phone: noSh[facility] for ChildrenQnejvhmspq66-35-0596 15:53-2851CsI3% (BldA) [Mass fraction]98 %Eliceo Beltran DO Work Phone: noShrin[facility]als for ChildrenHndakqfeuu36-60-5469 15:53-0500Systolic blood avqcfigq827 mm[Hg]Eliceo Beltran DO Work Phone: noShrin[facility] for ChildrenGlynaxiyeq95-21-8404 11:15-0400Body mass index (BMI) [Ratio]25.97 kg/b6Mjyzp Kiesha DO Work Phone: [facility] CenterFxamomhysc97-40-9168 11:15-0400Body ujfbem33.41 kgCorey Kiesha DO Work Phone: [facility] CenterPkzqqnaoee60-45-9903 11:15-0400Diastolic blood jkkdropc02 mm[Hg]Nathan Kiesha DO Work Phone: [facility] for ChildrenOaofgoybfc97-87-3007 11:15-0400Systolic blood aatmpklh312 mm[Hg]Nathan Kiesha DO Work Phone: [facility] CenterMrkifpztym71-50-2900 10:02-0400Body mass index (BMI) [Ratio]25.39 kg/s0Lrltu Kiesha DO Work Phone: [facility] CenterQcfzmkpczj86-15-6996 10:02-0400Body jndpan16.96 kgCorey Kiesha DO Work Phone: [place] [address]Qqsdenbofw83-20-5478 10:02-0400Diastolic blood qoqlajnq11 mm[Hg]Nathan Kiesha DO Work Phone: [place] [address]Dccroxfaue68-70-0892 10:02-0400Systolic blood mm[Hg]Nathan Kiesha DO Work Phone: [facility] CenterYpdoizjdlo99-78-2326 10:55-0500Body mass index (BMI) [Ratio]28.17 kg/r7Qyunl Kiesha DO Work Phone: [facility] CenterXzynklardc35-63-1033 10:55-0500Body lxkmho88.85 kgCorey Kiesha DO Work Phone: [facility] CenterCvzbvvrjej10-36-7959 10:55-0500Diastolic blood umwyvjvg54 mm[Hg]Nathan Cabrerao DO Work Phone: [facility] CenterEdsikjbnee43-68-3062 10:55-0500Systolic blood ljkbpmxe097 mm[Hg]Nathan Pop DO Work Phone: [facility] CenterTdfaclcefq70-65-9321 17:31-0400Body temperature 98.96 [degF][place] [address]10-18-2023 17:31-0400 Diastolic blood mm[Hg][place] [address]10-18-2023 17:31-2622SUD6 99 %[place] [address] [place], [place] 6010110-18-2023 17:31-0400Heart hlnu050 /minV[place] [address] [place], [place] 6010110-18-2023 17:31-0400 Respiratory rate16 /minKevin Claudy [address] [place], [place] 6010110-18-2023 17:31-0400 Systolic blood gakdcncv477 mm[Hg][place] [address] [place], [place] 6010106-06-2023 10:55-0400Body .5 cmErin Reaper GRAPHIC ARTS TECHNICIAN.TRUSS MAKER Work Phone: [place] Xkamfy48-18-5125 10:55-0400Body zxxbaq52.86 kgErin Reaper GRAPHIC ARTS TECHNICIAN.TRUSS MAKER Work Phone: [facility]and Bhdymc51-58-1630 10:55-0400Diastolic blood paeulicn42 mm[Hg]Jihan Reaper GRAPHIC ARTS TECHNICIAN.TRUSS MAKER Work Phone: [place] Rabnzo88-93-8125 10:55-0400Systolic blood qqqcafma229 mm[Hg]Jihan Reaper GRAPHIC ARTS TECHNICIAN.TRUSS MAKER Work Phone: [place] Chgezm27-79-5310 19:18-0500Diastolic blood etkvbend79 mm[Hg][facility]03-08-2023 19:18-0500Heart rate98 /minMag[facility] Hospital03-08-2023 19:18-0500Nursing Progress Note ReasonOther: this RN discharged pt. pt verbalizes understanding and denies questiosn prior to discharge.[facility]03-08-2023 19:18-0500Respiratory rate16 /minMag[facility] Hospital03-08-2023 19:18-8971ZaG4% (BldA) [Mass fraction]100 %[facility]03-08-2023 19:18-0500 Systolic blood tmkzxkpu846 mm[Hg][facility] 01-31-2023 18:00-0500Diastolic blood olwhgytn54 mm[Hg][facility]03-08-2023 18:00-0500Heart lvfp073 /minMag[facility] Hospital03-08-2023 18:00-0500Mean blood hoyvbgfu111 mm[Hg][facility]03-08-2023 18:00-1310OoV6% (BldA) [Mass fraction]99 %[facility]03-08-2023 18:00-0500 Systolic blood vttqekte724 mm[Hg][facility] 01-31-2023 17:00-0500Diastolic blood gkcknkja60 mm[Hg][facility]03-08-2023 17:00-0500Mean blood tfheqqey697 mm[Hg][facility]03-08-2023 17:00-0500Systolic blood pressure 117 mm[Hg][facility]03-08-2023 16:38-0500Heart rqsj557 /minMag[facility]03-08-2023 16:38-0500Mean blood iwqhzpeg978 mm[Hg][facility]03-08-2023 16:38-0500Respiratory rate18 /min[facility] 01-31-2023 13:49-0500Body cmedjcbxctn50.88 [degF][facility]03-08-2023 13:49-0500Heart qksw684 /min[facility]02-04-2023 14:55-0500Body zmfmjfeeiqq69.88 [degF][facility]02-04-2023 14:55-0500Diastolic blood uplvutto64 mm[Hg][facility]02-04-2023 14:55-0500Heart rate84 /minMag[facility]02-04-2023 14:55-0500Mean blood ocrmnjzi355 mm[Hg][facility]02-04-2023 14:55-0500Respiratory rate20 /minMag[facility]02-04-2023 14:55-6080HlX3% (BldA) [Mass fraction]98 %[facility]02-04-2023 14:55-0500Systolic blood pressure 137 mm[Hg][facility]02-04-2023 14:35-0500Body ipdrwvmurcd76.88 [degF][facility]02-04-2023 14:35-0500Diastolic blood xugndrjj07 mm[Hg][facility]02-04-2023 14:35-0500Heart rate82 /minMag[facility]02-04-2023 14:35-0500Mean blood muqobbwr45 mm[Hg][facility]02-04-2023 14:35-0500Respiratory rate16 /minProm[facility]02-04-2023 14:35-0712XzI4% (BldA) [Mass fraction]97 %[facility]02-04-2023 14:35-0500Systolic blood bfqartxl875 mm[Hg][facility]02-04-2023 13:35-0500Body ceqvzshxqrx16.88 [degF][facility]02-04-2023 13:35-0500Diastolic blood utgljnfo46 mm[Hg][facility]02-04-2023 13:35-0500Heart rate80 /minProm[facility]ica [facility] Hospital02-04-2023 13:35-0500Mean blood enkeafho07 mm[Hg] [facility]02-04-2023 13:35-0500Respiratory rate 17 /minMag[facility] Hospital02-04-2023 13:35-0999CtO4% (BldA) [Mass fraction]96 %[facility]02-04-2023 13:35-0500Systolic blood nvzfjvke310 mm[Hg][facility]02-04-2023 13:00-0500Respiratory rate12 /minMag[facility]02-04-2023 12:55-0500Respiratory rate9 /minMag[facility]02-04-2023 12:50-0500Respiratory rate10 /minProm[facility]02-04-2023 08:15-0500Body rdwfgueoosy59.24 [degF] [facility]02-04-2023 08:15-0500Heart qnpe843 /minAstrit [facility]01-07-2023 13:41-0500Body geekejfkzhp93.2 [degF]Kathe Ryder DO Work Phone: [facility] HospitalUkhsrk05-78-1143 13:41-0500Diastolic blood fairgcbp77 mm[Hg]Kathe Ryder DO Work Phone: [facility] HospitalEgrblj49-42-0541 13:41-0500Heart mutv119 /min Kathe Ryder DO Work Phone: [facility] HospitalLmkhyd51-13-3632 13:41-0500Respiratory rate18 /minKathe Ryder DO Work Phone: [facility] HospitalEgjpmr15-78-8128 13:41-0980OaN0% (BldA) [Mass fraction]99 %Kathe Ryder DO Work Phone: [facility] HospitalJmcehi26-99-0315 13:41-0500Systolic blood gjdssleu130 mm[Hg]Kathe Ryder DO Work Phone: [facility] HospitalNvkruz45-88-4785 00:45-0500Body wdcder056.5 cm Kathe Ryder DO Work Phone: [facility] HospitalNhshnk49-20-5351 00:45-0500Body mass index (BMI) [Ratio]25.61 kg/a0AtxqlbhzkKathe Ryder DO Work Phone: [facility] HospitalUwuxfi78-69-3030 00:45-0500Body noukue77.5 kg Kathe Ryder DO Work Phone: [facility] HospitalQcjjhc05-92-3420 22:26-0500Hourly Rounding Fredi [facility] HospitalComment on above:Result Comment: ensured that all pt belongings are sent with pt. pt has no questions or concerns. report given to EMS. pt stable and no s/s of distress. pt off unit to pucpgctl63-15-2971 22:00-0500Diastolic blood tqfiwomg46 mm[Hg]Fredi DORSEY [address] [place], [place] 2786401-02-2023 22:00-0500Heart mfer292 /minFredi SCHUMACHERASIK [address] [place], [place] 2786401-02-2023 22:00-0500 Hourly RoundingFredi DORSEY [address] [place], [place] 2786401-02-2023 22:00-0500Mean blood crnmzule430 mm[Hg]Fredi SCHUMACHERASIK [address] [place], [place] 2786401-02-2023 22:00-0500 Systolic blood qznqvliu250 mm[Hg]Fredi SCHUMACHERASIK [address] [place], [place] 2786401-02-2023 21:50-0500Blood Pressure LocationFredi DORSEY [address] [place], [place] 2786401-02-2023 21:50-0500 Diastolic blood shlqngam25 mm[Hg]Fredi DORSEY [address] [place], [place] 2786401-02-2023 21:50-0500Heart gekv951 /minFredi SCHUMACHERASIK [address] [place], [place] 2786401-02-2023 21:50-0500 Hourly RoundingFredi DORSEY [address] [place], [place] 2786401-02-2023 21:50-0500Mean blood oybgdgim457 mm[Hg]Fredi KARASIK [address] [place], [place] 2786401-02-2023 21:50-0500 Respiratory rate18 /minFredi SCHUMACHERASIK [address] [place], [place] 2786401-02-2023 21:50-9639AaS5% (BldA) [Mass fraction]98 %Fredi SCHUMACHERASIK [address]01-02-2023 21:50-0500 Systolic blood vcfuwnaa694 mm[Hg]Fredi KARASIK [address] [place], [place] 2786401-02-2023 21:37-0500Blood Pressure LocationCjory KARASIK [address] [place], [place] 2786401-02-2023 21:37-0500 Diastolic blood rjyeoxve09 mm[Hg]Fredi KARASIK [address] [place], [place] 2786401-02-2023 21:37-0500Heart fvkg751 /minCjory KARASIK [address] [place], [place] 2786401-02-2023 21:37-0500Mean blood gcgscbuj560 mm[Hg]Fredi KARASIK [address] [place], [place] 2786401-02-2023 21:37-2290HkQ4% (BldA) [Mass fraction]97 %Fredi KARASIK [address] [place], [place] 2786401-02-2023 21:37-0500 Systolic blood gbjdlttu533 mm[Hg]Fredi KARASIK [address] [place], [place] 2786401-02-2023 21:30-0500Blood Pressure LocationFredi ABREUK [address] [place], [place] 2786401-02-2023 21:30-0500Body zjvegoaycqx20.6 [degF]Fredi KARASIK [address] [place], [place] 2786401-02-2023 19:00-0500Body ieugodjobeb54.24 [degF]Fredi KARASIK [address] [place], [place] 2786401-02-2023 17:15-0500Body vhrjgroctfq45.06 [degF]Fredi KARASIK [address] [place], [place] 2786401-02-2023 14:02-0500Heart rate99 /minCjory KARASIK [facility]08-19-2022 07:00-0400Body mflwlmrsool82.6 [degF]Kaylinn Dokken [address] [place], [place] 8704208-19-2022 07:00-0400 Diastolic blood tynqrrvo98 mm[Hg]Kaylinn Dokken [address] [place], [place] 8704208-19-2022 07:00-0400Heart rate80 /minKaylinn Dokken [address] [place], [place] 8704208-19-2022 07:00-0400Mean blood fprxmqge26 mm[Hg]Kaylinn Dokken [address] [place], [place] 8704208-19-2022 07:00-0400 Respiratory rate17 /minKaylinn Dokken [address] [place], [place] 8704208-19-2022 07:00-0400 Systolic blood lbbdcadr614 mm[Hg]Kaylinn Dokken [address] [place], [place] 8704208-19-2022 06:07-0400Body skgnrspntya12.24 [degF]Kaylinn Dokken [address] [place], [place] 8704208-19-2022 06:07-0400 Diastolic blood mm[Hg]Kaylinn Dokken [address] [place], [place] 8704208-19-2022 06:07-0400Heart rate90 /minKaylinn Dokken [address] [place], [place] 8704208-19-2022 06:07-0400 Respiratory rate18 /minKaylinn Dokken [address] [place], [place] 8704208-19-2022 06:07-9934StU2% (BldA) [Mass fraction]100 %Kaylinn Dokken [address] [place], [place] 8704208-19-2022 06:07-0400 Systolic blood lixmerez750 mm[Hg]Kumar Villagomez [facility]08-19-2022 05:30-0400 Hourly RoundingCorey KIESHA [facility] HospitalComment on above:Result Comment: Pt discharged per physician orders. Pt ambulates off unit with a steady yeuz21-98-1870 05:15-0400Diastolic blood pkyezxxo13 mm[Hg]Nathan KIESHA [facility]08-19-2022 05:15-0400Heart slvl026 /minCorey KIESHA [facility]08-19-2022 05:15-0400 Hourly RoundingCorey KIESHA [facility]08-19-2022 05:15-0400Mean blood gvwtrqug42 mm[Hg]Nathan KIESHA [facility]08-19-2022 05:15-0400 Respiratory rate18 /minCorey KIESHA [facility]08-19-2022 05:15-0400 Systolic blood rzqlydeb270 mm[Hg]Nathan KIESHA [facility]05-24-2022 11:00-0400Body .02 cmCameron Dicadey Other [employer] Other 05-24-2022 11:00-0400Body mass index (BMI) [Ratio] 23.03 kg/d3Wffqqry Ditty Other [employer] Other 05-24-2022 11:00-0400Body uhnkbw40.97 kgCameron Ditty Other [employer] Other 03-17-2022 11:41-0400Body uxhztq515.48 cmMegan Billow DO Work Phone: [phone]-BLKYU-[address] Work Phone: [phone] 11:41-0400Body mass index (BMI) [Ratio] 24.51 kg/n8Rwtxv Billow DO Work Phone: TO-YSYYU-[address] Work Phone: [phone] 11:41-0400Body surface area Derived from formula1.61 a9Ghvrv Billow DO Work Phone: [phone]-BZBNC-[address] Work Phone: [phone] 11:41-0400Body iisjuw15.78 kgMegan Billow DO Work Phone: [phone]-ORFQR-[address] Work Phone: [phone] 11:41-0400Diastolic blood ciuigqgt96 mm[Hg] Charlene Billow DO Work Phone: [phone]-JZXQD-[address] Work Phone: [phone] 11:41-0400Systolic blood tbyvikzj273 mm[Hg] Charlene Billow DO Work Phone: TP-OXSBW-[address] Work Phone: [phone]()[phone] 11:41-52872 1Megan Billow DO Work Phone: AI-NYKIL-[address] Work Phone: Comment on above:SICZTVEAOwlhXugex91-79-5193 14:53-0400Body .48 cmMegan Billow DO Work Phone: GQ-PPVKO-[address] Work Phone: [phone] 14:53-0400Body mass index (BMI) [Ratio] 21.77 kg/o3Imweb Billow DO Work Phone: GN-VOVJI-[address] Work Phone: [phone] 14:53-0400Body surface area Derived from formula1.53 t5Pcvzg Billow DO Work Phone: QF-LASGY-[address] Work Phone: [phone] 14:53-0400Body qsantt53.98 kgMegan Billow DO Work Phone: EW-QWZAF-[address] Work Phone: [phone] 14:53-0400Diastolic blood mm[Hg] Charlene Billow DO Work Phone: VS-DYVJE-[address] Work Phone: [phone] 14:53-0400Heart vwpo781 /minMegan Billow DO Work Phone: QB-RQZDZ-[address] Work Phone: [phone] 14:53-0400Systolic blood gzkviigr199 mm[Hg] Charlene Billow DO Work Phone: GI-ENFZA-[address] Work Phone: [phone] 14:53-17925 1Megan Billow DO Work Phone: DA-FTJVD-[address] Work Phone: [phone] on above:GRAVPARAPainScale Encounters Encounter DateEncounter TypeCare ProviderFacilityStart: 09-17-2025 End: 60-79-6789BxchtsMika Arciniega APRN-MARIBEL Work Phone: [phone]-Bpymk Medicine at [facility] Comment on above:Essential hypertension affecting in third trimester Start: 09-16-2025 End: 01-02-3270vdkhniwulnUVKIY FAZIONot AvailableStart: 09-16-2025 End: 93-08-7488Bjgeaflu flow sheetCorey Kiesha DO Work Phone: NOMS Armstrong OBGYNComment on above:29 weeks gestation of ([facility]); Third trimester ([facility]); Hypertension affecting , antepartum ([facility]); Gestational diabetes mellitus (GDM), antepartum, gestational diabetes method of control unspecified([facility]-HCC)Start: 09-16-2025 End: 42-85-7564Iengtj flowsheetCorey Kiesha DO Work Phone: noMS Armstrong OBGYNStart: 09-16-2025 End: 50-61-8687Qnnziu flowsheetCorey Kiesha DO Work Phone: noMS Armstrong OBGYNStart: 09-16-2025 End: 08-95-2483Zbwguthzz Nirmal Harris [facility]: 09-15-2025 End: 87-51-3317AgnufhMika Meza PA-C Work Phone: [phone]-Vxwuw Medicine at [facility] Comment on above:Essential hypertension affecting in third trimester Start: 09-10-2025 End: 37-24-2576Yypolp outpatient visit 25 minutesMadhuri Monroy MD Work Phone: Materna Medicine [place]Comment on above: 28 weeks gestation of (Primary Dx); Insulin controlled gestational diabetes mellitus (GDM) in second trimester; Essential hypertension affecting in third trimesterStart: 09-10-2025 End: 25-64-4935ecdlfhivmsXXOGYMIG P DOCHEVAGalion [facility] Start: 09-04-2025 End: 88-21-6666Ygwzby consultation new/estab patient 60 Annalee Denise MD Work Phone: [phone]-Fixwj Medicine at [facility] Comment on above:Diet controlled gestational diabetes mellitus (GDM) in second trimester (Primary Dx); Essential hypertension affecting in third trimesterStart: 09-04-2025 End: 88-88-9744xfumkoqtnrPVBKLJ KHAC[facility]AGUNA HOSPITALHIDPWooster Community Hospitaltart: 09-03-2025 End: 11-12-4435Aluwlajd flow sheetSteph Keane STACKER OPERATOR Work Phone: NOMS [facility] OBGYNComment on above:Hypertension affecting , antepartum ([facility]-HCC) (Primary Dx); 27 weeks gestation of ([facility]-HCC); Second trimester ([facility]-HCC)Start: 09-03-2025 End: 60-33-4700eqfoksfoizSAVIIUVB EBERLYNot AvailableStart: 09-03-2025 End: 87-83-9553Iudvht flowsheetSteph Suely STACKER OPERATOR Work Phone: NOND [place] OBGYNStart: 09-03-2025 End: 47-71-9222Tsumcfbmr Result EncounterCorey Kiesha DO Work Phone: noms External Department UnsolicitedStart: 09-03-2025 End: 60-62-2199Zqtkbgpes Result EncounterCorey Kiesha DO Work Phone: NOJN External Department UnsolicitedStart: 09-01-2025 End: 78-80-0439Eunxzbcok Nirmal Harris RNMaternal- Medicine at [facility] Centertart: 08-29-2025 End: 14-69-7468Ottlsppdm Result EncounterSteph Keane STACKER OPERATOR Work Phone: noms External Department UnsolicitedStart: 08-29-2025 End: 02-95-0542Ndgukaedk Result EncounterSteph Keane STACKER OPERATOR Work Phone: noms External Department UnsolicitedStart: 08-27-2025 End: 40-37-1933itymihbduwHFHPYIMJ EBERLYNot AvailableStart: 08-27-2025 End: 85-54-1939Ttnqnwzc flow sheetSheelaa Elsa STACKER OPERATOR Work Phone: NOEI Patti OBGYNComment on above:26 weeks gestation of ([facility]-HCC); Second trimester ([facility]HS-HCC); induced hypertension, antepartum ([facility]); Gestational diabetes mellitus (GDM) in second trimester, gestational diabetes method of control unspecified ([facility])Start: 08-27-2025 End: 49-04-2880Xoyzrr Bárbara Keane NP Work Phone: NORB [facility]atti OBGYNStart: 08-27-2025 End: 98-17-1375Fujewv Bárbara Keane STACKER OPERATOR Work Phone: NOMS [facility]atti OBGYNStart: 08-27-2025 End: 96-36-4756Pbmydtzap Result EncounterSteph Keane NP Work Phone: NOBT External Department UnsolicitedStart: 08-25-2025 End: 23-42-9155Hpgcaokwm Result EncounterGeneric External Data ProviderNOMS External Department UnsolicitedStart: 08-25-2025 End: 94-97-3837Fgpexehwy Result EncounterGeneric External Data ProviderNOMS External Department UnsolicitedStart: 08-24-2025 End: 32-07-6119vxirquqosdBmfitq M Frey RN Work Phone: [phone]-Islzc Medicine at [facility] Comment on above:Gestational diabetes mellitus (GDM) in second trimester, gestational diabetes method of control unspecifiedStart: 08-21-2025 End: 47-82-6515Auofg abstractingScanning Provider ExternalMaternal- Medicine at [facility] Centertart: 08-18-2025 End: 98-11-0483Whrjn Aura Monroy MD Work Phone: [phone]-Dhmbj Medicine at [facility] Start: 08-15-2025 End: 00-13-3392bahxrunodiMPMWIMBP EBERLYFacility:FTMCStart: 08-12-2025 End: 25-67-8542Sapqhsyl flow sheetCorey Kiesha DO Work Phone: noms [place] OBGYNComment on above:24 weeks gestation of ([facility]); Second trimester ([facility]); Elevated glucose tolerance testStart: 08-12-2025 End: 09-19-8375nfccincqllBNHWK FAZIONot AvailableStart: 08-12-2025 End: 25-14-3394ewnvjkdakzHxjmi R MANISHAOFacility:FTMCStart: 08-01-2025 End: 73-49-6647lzmiflkzbyS KENNETH CHARLOTTEGREGORFacility:FTMCStart: 07-30-2025 End: 18-63-1406Tyrzacz encounter statusGemartha Hurtado Nirajdaly DO Work Phone: [facility] Work Phone: Start: 07-30-2025 End: 66-79-3291Ljoowaxx preventive med est patient 18-39 yrsGeorjose manuel Beltran DO Work Phone: noms [facility] 230Comment on above: Wellness examination (Primary Dx); Hypertension, unspecified type ; Lipid screeningStart: 07-30-2025 End: 29-78-6598rgbvmimvvfDCVCSH R KAFTANNot AvailableStart: 07-30-2025 End: 39-23-2987Aihvcg flowsheetEliceo Beltran DO Work Phone: noms [facility] 230Start: 07-30-2025 End: 01-88-6759Nyqswi flowsEmi Beltran DO Work Phone: noms [facility] 230Start: 07-15-2025 End: 88-93-5238Jbwigyzn flow sheetCorey Kiesha DO Work Phone: NOXH [facility] OBGYNComment on above:20 weeks gestation of ([facility]); Second trimester ([facility]); Diabetes mellitus screeningStart: 07-15-2025 End: 35-38-2394fstzwzikhcYEOQP FAZIONot AvailableStart: 07-15-2025 End: 97-45-1771Ucitsvlwf Result EncounterCorey Kiesha DO Work Phone: noms External Department UnsolicitedStart: 07-15-2025 End: 78-04-8820Chgraerxt Result EncounterCorey Kiesha DO Work Phone: NOIY External Department UnsolicitedStart: 06-22-2025 End: 07-13-7823Zkkqtufg flow sheetCorey Kiesha DO Work Phone: noms [facility]atti OBGYNComment on above:Sinusitis, unspecified chronicity, unspecified location (Primary Dx); Second trimester ([facility]); 17 weeks gestation of ([facility]); Screening, , for anatomic survey ([facility])Start: 06-22-2025 End: 51-46-0117paetcyzhaiFWXZR FAZIONot AvailableStart: 06-22-2025 End: 52-45-8034Nyazdv flowsheetCorey Kiehsa DO Work Phone: NOBG [facility]atti OBGYNStart: 06-22-2025 End: 02-31-3498Yyzxcg flowsheetCorey Kiesha DO Work Phone: noms [place] [facility]BGYNStart: 06-22-2025 End: 24-37-5060Onawnzrl Result EncounterCorey Kiesha DO Work Phone: noms External Department UnsolicitedStart: 05-25-2025 End: 00-58-6039svnwcqtjauKPURC FAZIONot AvailableStart: 05-25-2025 End: 91-94-6661Pjtwyopm flow sheetCorey Kiesha DO Work Phone: NOTP BCP OBComment on above:Nonintractable episodic headache, unspecified headache type (Primary Dx); Second trimester ([facility]); 13 weeks gestation of ([facility])Start: 05-25-2025 End: 82-94-5507Naldpu flowsheetCorey Kiesha DO Work Phone: NOMS BCP OBStart: 05-25-2025 End: 26-82-0280Ahsmbj flowsheetCorey Kiesha DO Work Phone: NOMS BCP OBStart: 05-04-2025 End: 74-50-0830Ftobutvam Result EncounterCorey Kiesha DO Work Phone: noms External Department UnsolicitedStart: 05-04-2025 End: 09-35-9386Siaougcbc Result EncounterCorey Kiesha DO Work Phone: noms External Department UnsolicitedStart: 05-01-2025 End: 05-65-4290Yvjcskohl Result EncounterCorey Kiesha DO Work Phone: noms External Department UnsolicitedStart: 05-01-2025 End: 32-40-8085Yolpuohgq Result EncounterCorey Kiesha DO Work Phone: noms External Department UnsolicitedStart: 05-01-2025 End: 15-86-2218ayaulnktsoBJAVJR ANROLDOot AvailableStart: 05-01-2025 End: 90-64-7489Girebx outpatient visit 5 minutesNoms Bcp Ob Kiesha NurseNOMS BCP OBComment on above:GA: 0w4oJqhtd: 03-13-2025 End: 13-43-6109pivblcvqbhJvawn R FAZIOFacility:FTMCStart: 03-13-2025 End: 82-82-5059Ilovxwj encounter procedureCorey R KIESHA [facility] Start: 02-02-2025 End: 13-56-1489Jjnxezl encounter procedureDenny Rodríguez MD Work Phone: [facility] [place] Work Phone: Start: 02-02-2025 End: 20-36-5111gawtccstcqHpgfo Baxter MD Work Phone: [facility] Work Phone: Start: 01-22-2025 End: 40-06-0507wsgzyvfsyfNipkg R FAZIOFacility:FTMCStart: 01-22-2025 End: 97-23-4303Jzooktj encounter procedureCorey R KIESHA [facility] Start: 01-19-2025 End: 32-39-4393Scrovn outpatient visit 15 minutesCorey Kiesha DO Work Phone: noms BCP OBComment on above:Pain in female genitalia on intercourse; EndometriosisStart: 01-19-2025 End: 03-73-2758lxyptabmxdUAJLM FAZIONot AvailableStart: 01-19-2025 End: 05-23-8216Smazvx flowsheetCorey Kiesha DO Work Phone: noms BCP OBStart: 01-19-2025 End: 11-82-2986Hfgxry flowsheetCorey Kiesha DO Work Phone: noms BCP OBStart: 12-30-2024 End: 49-64-6653gziskojhntVTQLAL R KAFTANNot AvailableStart: 12-30-2024 End: 03-28-6579Eadfie outpatient visit 15 minutesGeorge Bryant Beltran DO Work Phone: noms [facility] 230Comment on above:Hypertension, unspecified type (CMS/HCC) (Primary Dx); Paroxysmal tachycardia, unspecified (CMS/HCC); Chronic right shoulder pain; Scapular dyskinesisStart: 08-18-2024 End: 69-55-5539Otpygi flowsheetCorey Kiesha DO Work Phone: NOEL BCP OBStart: 08-18-2024 End: 10-02-1416Koyrvr flowsheetCorey Kiesha DO Work Phone: noms BCP OBStart: 08-18-2024 End: 18-68-0802Gpzqwnkhb Result EncounterCorey Kiesha DO Work Phone: noms External Department UnsolicitedStart: 08-18-2024 End: 38-30-3659Mahgqai encounter procedureCorey Kiesha DO Work Phone: [facility] Work Phone: Start: 08-18-2024 End: 51-28-6328Mcjqvldz preventive med est patient 18-39 yrsCorey Kiesha DO Work Phone: noms BCP OBComment on above:Well woman exam with routine gynecological examStart: 07-22-2024 End: 58-66-5576Okbuku flowsheetCorey Kiesha DO Work Phone: NOPX BCP OBStart: 07-22-2024 End: 08-43-6865Hliizj flowsheetCorey Kiesha DO Work Phone: NOMJ BCP OBStart: 07-22-2024 End: 14-12-0757Fiuuhg outpatient visit 15 minutesCorey Kiesha DO Work Phone: noms BCP OBComment on above:Dysmenorrhea, unspecified Start: 85-73-5508Vbradhxrf encounterMegan Billow DO Work Phone: [facility]andtart: 24-30-9157Guzjsbsbp encounterMegan Billow DO Work Phone: [facility] ClinicsComment on above:Surgery CancelledStart: 01-10-2024 End: 73-01-4170Bzuwjn outpatient visit 15 minutesCorey Kiesha DO Work Phone: noms BCP OBComment on above:Menorrhagia with regular cycle; Pelvic pain in female; Uses controlStart: 10-59-0255FpoumbToxfu Billow DO Work Phone: [place] HospitalComment on above:Refill Request Start: 97-08-4348gesgiepeyjLuxnd Billow DO Work Phone: Obstetrics/GynecologyComment on above:painStart: 12-10-2023 End: 91-49-2596djyqxwhsmvTALUR BILLOWFacility:[facility] [place] Campustart: 53-86-0673ileeiojxylAzrxq Billow DO Work Phone: REM PIRES MCStart: 62-35-2556Ffifpoq encounter procedureMegan Billow DO Work Phone: Obstetrics/GynecologyComment on above:office visit Start: 09-12-2023 End: 41-09-7709Ytxoqctrh department patient Berny Loco [facility] Start: 92-95-8415Sxfjjy pelvic examinationMegan Billow DO Work Phone: Obstetrics/GynecologyComment on above:Pelvic pain in female (Primary Dx)Start: 64-14-9446lnamjozgioSrsnl Billow DO Work Phone: Obstetrics/GynecologyComment on above:painful periods Start: 08-24-2023 End: 27-20-6300Yafbwx pelvic examinationJihan Downs APRN.CNP Work Phone: GynecologyComment on above:High-tone pelvic floor dysfunction (Primary Dx); Chronic pelvic pain in femaleStart: 08-24-2023 End: 35-99-1489Bqbwiafppkaa consultation with Kelton Downs APRN.CNP Work Phone: [facility] MAINStart: 08-24-2023 End: 92-90-3072nqfzhphtcxUKBH REAPERFacility:[facility] [place] Campustart: 02-84-3311dbhxzbskkhEdond Billow DO Work Phone: Obstetrics/GynecologyComment on above:painful period Start: 97-25-2701Eftahvtsy encounterMegan Billow DO Work Phone: GynecologyComment on above:Insurance Authorization (Orilissa)Start: 07-16-2023 End: 18-37-3309xfcwmfnicmLVYQW BILLOWFacility:[facility] [place] Campustart: 06-12-2023 End: 85-56-5935fldtyajlvgBAUQX BILLOWFacility:[facility] [place] Campustart: 06-12-2023 End: 77-13-0274Bfmfshiprc hospital visit by Mónica Cohn (I-Stat/1.5t) RadiologyComment on above:Pelvic and perineal pain [R10.2]Start: 05-17-2023 End: 59-94-3022Qrhqug pelvic examinationCharlene Rodriguez appweevr Work Phone: Obstetrics/GynecologyComment on above:Endometriosis (Primary Dx); Pelvic and perineal painStart: 05-17-2023 End: 54-27-4867Fjhnhyizbvil consultation with patientCharlene Rodriguez DO Work Phone: CC VERONICA FHCStart: 05-17-2023 End: 71-30-9604ldyvcajpiiANLZM ALAN BAXTERFacility:[facility] Start: 70-99-3786Rvttdchwh encounterMekevin Rodriguez appweevr Work Phone: GynecologyComment on above:Vaginal BleedingStart: 05-01-2023 End: 97-94-3507vanochxqkgAOWKL ALAN BAXTERFacility:[facility] Start: 05-01-2023 End: 89-48-4723Xskmsio encounter Lisa Downs APRN.CNP Work Phone: GynecologyComment on above:Chronic pelvic pain in female (Primary Dx); Constipation, unspecified constipation type; High-tone pelvic floor dysfunction; Diastasis of rectus abdominis; Dysmenorrhea; Other specified dyspareuniaStart: 48-58-6287kephvsflsrBpits Billow appweevr Work Phone: Obstetrics/GynecologyComment on above:painfulStart: 01-31-2023 End: 23-58-5407Jkfrnlrpf department [facility] visitOur [facility] Start: 12-30-2022 End: 28-79-9762Wvrquop encounter procedureOur [facility] of [facility]cy [facility] Start: 12-05-2022 End: 84-35-7623gsqgmnjygiKHMCAdventHealth ApopkaStart: 12-05-2022 End: 35-09-1988Zrwglq outpatient visit 15 minutesGinsrinath [facility] Hospitalsoraidamountain states health alliance DO Work Phone: [facility] CenterKaiser Oakland Medical CenterComment on above:Pre- eclampsia, severe, delivered (Primary Dx)Start: 11-28-2022 End: 48-64-4515Pfplmlrfhx and management of inpatientCampbellton-Graceville HospitalStart: 11-28-2022 End: 30-05-8551Aqafelmzkt and management of inpatientSt. [facility] Work Phone: [facility] POSTPARTUMComment on above:Preeclampsia, severe, third trimester (Primary Dx)Start: 11-28-2022 End: 50-38-8008Caa-admission assessmentGregrosa DORSEY [facility] Start: 11-27-2022 End: 56-36-5598QC TriageFredi DORSEY [facility] Start: 07-14-2022 End: 01-16-6158Baqapbrju department patient visitKumar Emeryangy [facility] Start: 07-14-2022 End: 79-83-9212UA TriageCorepearl Bryant KIESHA [facility] Start: 04-25-2022 End: 88-12-1150Mqizxyw encounter procedureCAMERON DICADEY [facility] Start: 04-18-2022 End: 20-72-7487trxuicpawhKcrvogu Ditty Other [place] [employer] Other Start: 56-77-0177Rzwczya encounter procedureCameron DittyFPG GastroenterologyStart: 55-25-9795Vounfk outpatient visit 15 minutes Charlene Rodriguez DO Work Phone: [phone]-SUEXT-[address] Work Phone: Start: 09-29-2021 End: 25-31-3259kbimgpondtHEBQI ROWENA POCOSMercy Marcin HospitalStart: 09-29-2021 End: 15-51-1164dnfoeruvxdZHLIX ROWENA POCOSMercy Olean HospitalStart: 76-61-2864TROHBRctyd Kuldip DO Work Phone: [phone]-PKOTS-[address] Work Phone: Start: 60-10-0299AZNBBNIELM, Provider: Charlene Rodriguez, Status: Pen, Time: 2:45 Ina Chau MD Work Phone: [phone]-Alhncdp-[place] Work Phone: Start: 39-99-9439Ajrdf Oswaldo Chau MD Work Phone: [phone]-Jknjjie-[place] Work Phone: Procedures DateProcedureProcedure DetailPerforming ClinicianStart: 84-98-2292Ycvtt dip stick/tablet rgnt non-auto w/o micrscpCorey Kiesha DO Work Phone: Start: 45-06-1186NHO BUNCorey Kiesha DO Work Phone: Start: 01-83-1977YBU URIC ACIDCorey Kiesha DO Work Phone: Start: 28-41-2067DUP ALTCorey Kiesha DO Work Phone: Start: 72-19-5590HET ASTCorey Kiesha DO Work Phone: Start: 49-55-4688DDA CREATININECorey Kiesha DO Work Phone: Start: 60-44-7741YHL URINE T PROTEIN CREAT RATIOCorey Kiesha DO Work Phone: Start: 51-19-7038Jsaqr dip stick/tablet rgnt non-auto w/o micrscpKristina Elsa STACKER OPERATOR Work Phone: Start: 62-72-1516UIP TOTAL PROTEIN 24 HOUR URINE Generic External Data ProviderStart: 37-19-7710PV OB BPP W NON-STRESS Steph Elsa STACKER OPERATOR Work Phone: Start: 23-95-3943MFH URINE T PROTEIN CREAT RATIO Generic External Data ProviderStart: 08-37-5735MXZ CBC WITH AUTO DIFFGeneric External Data ProviderStart: 49-41-7081Pjqdw dip stick/tablet rgnt non-auto w/o kendrickNatansrinath Elsa STACKER OPERATOR Work Phone: Start: 30-28-7015Ijgtxhfr identified in Urine by CultureGeneric External Data ProviderStart: 74-16-6085Axxqcll quantitative blood xcpt reagent stripNot In System Ref ProvStart: 57-82-3722NIGERI HOUR GLUCOSE TOLERANCE 100 GM LOADNot In System Ref ProvStart: 91-04-9899Jzzdk dip stick/tablet rgnt non-auto w/o micrscpCorey Kiesha DO Work Phone: Start: 86-90-8703IUL 1H POST 50G LOADNot In System Ref ProvStart: 73-94-9925HCT, SERUM, OPEN SPINA BIFIDACorey Kiesha DO Work Phone: Start: 16-52-5543Bcqbm dip stick/tablet rgnt non-auto w/o micrscpCorey Kiesha DO Work Phone: Start: 75-30-5407RFGRLZBZI VAGINITIS (HTRX)Nathan Kiesha DO Work Phone: Start: 82-43-1163Yeinn dip stick/tablet rgnt non-auto w/o micrscpCorey Kiesha DO Work Phone: Start: 75-53-4570Dmueb dip stick/tablet rgnt non-auto w/o micrscpCorey Kiesha DO Work Phone: Start: 11-10-6757Uqkywbwz screenNikolina Docheva MD Work Phone: Start: 57-28-7705Rvuj scrn 1+ class nonchromoNot In System Ref ProvStart: 68-60-7266Qpfparwxzi glycosylated a4iJoyij R Kiesha DO Work Phone: Start: 38-76-3004Jgirjedbp c antibodyNot In System Ref ProvStart: 30-11-2810DZU 1&2 AB/AG SCREEN (P24 AG)Not In System Ref ProvStart: 45-45-7553Dife ia hepatitis b surface antigenNot In System Ref ProvStart: 22-22-3329MKXX AND SCREENNot In System Ref ProvStart: 56-29-4045MOV TESTCorey Kiesha DO Work Phone: Start: 61-00-0692Yxhmo dip stick/tablet rgnt non-auto w/o micrscpCorey [facility] DO Work Phone: Start: 84-67-7031BA OB TRANSVAGINALCorey [facility] DO Work Phone: Start: 47-46-5990ILW,APTIMA HPV,AGE GDLNCorey [facility] DO Work Phone: Start: 37-24-2840Jikimqgysvw observation [Identifier] in Cervix by Cyto stainCorey [facility] DO Work Phone: Start: 95-58-5943Jnrc cerv/vag auto thin layer prep mnl screenCorey [facility] DO Work Phone: Start: 19-09-4433Wyh pelvis w/o & w/contrast material Charlene Billow DO Work Phone: Start: 54-13-5773Qwcay count platelet automatedMichael O'Cormier GRAPHIC ARTS TECHNICIAN - AMBULANCE OPERATIONS SUPERVISOR Work Phone: Start: 16-49-8030Lzhjv count platelet automatedCassie Constantino MD Work Phone: Start: 61-26-5480Hrhef streptococcus group b amplified probe tqCassie Constantino MD Work Phone: Start: 27-65-3175DKR and Rh group [Type] in Blood by Confirmatory Carmine Constantino MD Work Phone: Start: 52-28-3166Hsisd typing serologic Cait Constantino MD Work Phone: Start: 62-81-3597Pownyafezesnq metabolic panelCassie Constantino MD Work Phone: Start: 53-48-8686Rdfrlicn hiv-1&hiv-2 single result Megadyne [phone]: 68-82-5973Rdkj ia hepatitis b surface antigenMegadyne [phone]: 80-40-7661SeqewlegldBVZMKYE [employer] Start: 08-30-2020 End: 87-45-7342Zyvehvgn screenComment on above:Performed By: #### T+S #### [facility] [address] [place], [place] [address]Mwyqc Comment: TEST TYPE + SCREEN WAS CANCELLED, 08/30/2020 13:37 JOP.Performed By: #### T+S #### [facility] [address] [place], [place] [address]Clphw: 53-22-5168JMSNV SHOULDER OPEN DISTAL CLAVICLE EXCISION 1CAMERON [employer] Comment on above:RIGHT SHOULDER OPEN DISTAL CLAVICLE EXCISIONRIGHT SHOULDER OPEN DISTAL CLAVICLE EXCISIONAppendectomyCAMERON [employer] betamethasone (substance)Fredi DORSEY comment on above:Dose #1: 11/27/22ColonoscopyCAMERON DITTY Endoscope, device (physical object)Von Loco LaparoscopyTeri Chau MD Work Phone: Plan of Treatment DateCare ActivityDetailAuthorStart: 80-23-7303Abofoh Vaccines (1 of 2)Zoster Vaccines (1 of 2)[facility] HealthStart: 38-74-8348Htxiipfjk for malignant neoplasm of cervixNOMS HealthcareStart: 63-89-2280Mlqvifzuc for malignant neoplasm of cervixPap SmearNOMS HealthcareStart: 74-80-7836Mgmrr BMI ScreeningAdult BMI ScreeningRegional Medical Center SystemStart: 21-29-3698Dvaqicd ScreeningTobacco ScreeningProWadsworth-Rittman Hospital SystemStart: 94-95-1053Oolbl BMI ScreeningAdult BMI ScreeningRegional Medical Center SystemStart: 75-63-0325Nszsk BMI ScreeningAdult BMI ScreeningProWadsworth-Rittman Hospital SystemStart: 10-08-2025 End: 74-97-8929Obxpgwv encounter kqnohuaci92/13/2025 8:00 AM EST Appointment [facility] [place] [address] [facility] [address] [place] [address] [phone] Medicine [place]Start: 10-05-2025 End: 01-88-2419Nxhydhc encounter /10/2025 3:00 PM EST Office Visit Maternal- Medicine at [facility] [address] [place] [address] Kayleigh Meza PA-C [address] [address] [facility]: 10-05-2025 End: 32-80-1308Thvdhqibinsd consultation with ttptgpc1610/05/2025 3:00 PM EST Telemedicine Maternal- Medicine at [facility] [address] [place] [address] Kayleigh Meza PA-C [address] [address] [facility]: 09-30-2025 End: 75-16-5524Ixghbhf encounter tonvbwxdi56/05/2025 3:00 PM EST Routine NOM[facility] Patti [address] [place], [id number] Nathan Pop DO [address] [facility] [place] [address] NOMShalonda [place] OBGYNStart: 09-16-2025 End: 09-71-0781UP biophysical profile w non stress testUS biophysical profile w non stress test Imaging Routine Gestational diabetes mellitus (GDM),antepartum, gestational diabetes method of control unspecified ([facility]-H[facility]) Expected: 09/16/2025, Expires: 09/16/2026NOMS HealthcareComment on above:Expected: 09/16/2025, Expires: 09/16/2026Start: 09-15-2025 End: 11-52-5910Xkdrxjv encounter gfpqvsysv54/21/2025 2:50 PM EDT Routine NOMShalonda MOODY [address] [facility] [facility] [address] [address] [place], [id number] Zenobia Gutierrez PA [address] [facility] [place] [address] NOMShalonda YOUNGNStart: 09-10-2025 End: 46-96-5719Pvykglxtaruu consultation with rzwewmf1809/10/2025 11:00 AM EDT Telemedicine [facility] [place] [address] [phone] Madhuri Monroy MD [address] [facility], [address] [place] [address] [facility] Medicine [place]: 09-10-2025 End: 01-64-7565Keameua encounter devwkxclh02/16/2025 9:45 AM EDT Appointment [facility] [place] [address] [facility] [address] [place] [address] [phone] Medicine [place]Start: 09-07-2025 End: 89-39-3088Dhzzzcz encounter procedureNOMS BCP OBStart: 09-04-2025 End: 58-29-5549Tpjreib encounter bsydxjiiq21/10/2025 3:00 PM EDT Office Visit Maternal- Medicine at [facility] [address] [place] [address] Mine Denise MD [address] [place] [address] [facility]: 09-03-2025 End: 44-45-7992Zjljymo encounter procedureNOMS [place] OBGYNComment on above: ArrivedStart: 08-27-2025 End: 66-86-9027Ameyvnk encounter /02/2025 3:20 PM EDT Routine NOM[facility] Patti YOUNGN [address] [facility] [address] [place], [id number] Steph Keane, STACKER OPERATOR [address] [facility] [place] [address] NOMS Patti OBGYNStart: 08-27-2025 End: 23-19-5811Caayhre aminotransferase [Enzymatic activity/volume] in Serum or PlasmaALT Lab Routine induced hypertension, antepartum (HHS-HCC) Expected: 08/27/2025 (Approximate), Expires: 08/27/2026NOAZ HealthcareComment on above:Expected: 08/27/2025 (Approximate), Expires: 08/27/2026Start: 08-27-2025 End: 34-88-9955Ccnwyjcfd aminotransferase [Enzymatic activity/volume] in Serum or PlasmaAST Lab Routine induced hypertension, antepartum (HHS-HCC) Expected: 08/27/2025 (Approximate), Expires: 08/27/2026[facility] HealthcareComment on above:Expected: 08/27/2025 (Approximate), Expires: 08/27/2026Start: 08-27-2025 End: 70-12-9445DLR W Auto Differential panel - BloodCBC and differential Lab Routine induced hypertension, antepartum (HHS-HCC) Expected: 12/2024 (Approximate), Expires: 08/27/2026[facility] HealthcareComment on above: Expected: 08/27/2025 (Approximate), Expires: 08/27/2026Start: 08-27-2025 End: 85-95-5175Dpqnarkuju [Mass/volume] in Serum or PlasmaCreatinine Lab Routine induced hypertension, antepartum (HHS-HCC) Expected: 08/27/2025 (Ap proximate), Expires: 08/27/2026[facility] Work Phone: comment on above:Expected: 08/27/2025 (Approximate), Expires: 08/27/2026Start: 08-27-2025 End: 11-26-4834Jpmrxta dehydrogenase [Enzymatic activity/volume] in Serum or Plasma by Lactate to pyruvate reactionLactate dehydrogenase Lab Routine induced hypertension, antepartum (HHS-HCC) Expected: 08/27/2025, Expires: 08/27/2026[facility] CenterComment on above:Expected: 08/27/2025, Expires: 08/27/2026Start: 08-27-2025 End: 49-88-8121Umbkffc, urine, 24 hourProtein, urine, 24 hour Lab Routine induced hypertension, antepartum (HHS-HCC) Expected: 08/27/2025 (Approximate), Expires: 08/27/2026[facility] HealthcareComment on above:Expected: 08/27/2025 (Approximate), Expires: 08/27/2026Start: 08-27-2025 End: 57-03-4015Wv and pttPt and ptt Lab Routine induced hypertension, antepartum (HHS-HCC) Expected: 08/27/2025, Expires: 08/27/2026[facility] Comment on above:Expected: 08/27/2025, Expires: 08/27/2026Start: 08-27-2025 End: 08-45-8084Kthns [Mass/volume] in Serum or PlasmaUric acid Lab Routine induced hypertension, antepartum (HHS-HCC) Expected: 08/27/2025 (Bouchra roximate), Expires: 08/27/2026NOMS HealthcareComment on above:Expected: 08/27/2025 (Approximate), Expires: 08/27/2026Start: 08-27-2025 End: 35-96-0793Mnbd nitrogen [Mass/volume] in Serum or PlasmaBUN Lab Routine induced hypertension, antepartum (HHS-HCC) Expected: 08/27/2025, Expires:08/27/2026NOMS HealthcareComment on above:Expected: 08/27/2025, Expires: 08/27/2026Start: 08-27-2025 End: 22-97-2953GX biophysical profile w non stress testUS biophysical profile w non stress test Imaging Routine induced hypertension, antepartum (HHS-HCC) Gestational diabetes mellitus (GDM) in second trimester, gestational diabetes method of control unspecified ([facility]) Expected: 08/27/2025 (Approximate), Expires: 02/25/2026NOMS HealthcareComment on above:Expected: 08/27/2025 (Approximate), Expires: 02/25/2026Start: 08-24-2025 End: 63-38-3035btbeukoyqs36/29/2025 1:30 PM EDT Support Visit Maternal- Medicine at [facility] [address] [place] [address] Teena Sarmiento RN [address] [facility], [address] [place] [address] Kerline Augustin, RAYNA [address] [facility] [address], [address] [place] [address] [facility]: 08-24-2025 End: 35-32-0827Qkuqfdm encounter prhvzilys82/29/2025 11:00 AM EDT Office Visit [facility]CP OB [address] [facility] [place] [phone] Nathan Pop DO [address] [place] [address] NOMShalonda INIGUEZ OBStart: 08-12-2025 End: 89-28-7009Yuwqsld encounter zwtwmmvaw17/17/2025 2:40 PM EDT Routine LANETTE MOODY [address] [facility] [address] [place], [id number] Nathan Pop, [address] [facility] [place] [address] NOMShalonda [place] OBGYNStart: 08-12-2025 End: 19-69-5878Wapwzdxppit of glucose 3 hours after glucose challenge for glucose tolerance testGlucose tolerance, 3 hours Lab Routine Elevated glucose tolerance test Expected: 08/12/2025 (Approximate), Expires: 08/12/2026[facility] Work Phone: comment on above:Expected: 08/12/2025 (Approximate), Expires: 08/12/2026Start: 08-12-2025 End: 61-71-3482Xhuipbomzhcg / ancillary services ujoomeduhk04/17/2025 2:00 PM EDT Ancillary Procedure LANETTE MOODY [address] [facility] [place] [phone] NOMS Patti OBGYNStart: 07-31-2025 End: 18-51-7744ENJ W Auto Differential panel - BloodCBC and differential Lab Routine Hypertension, unspecified type Wellness examination Expected: 07/31/2025 (Approximate), Expires: 08/29/2025[facility] Work Phone: Comment on above:Expected: 07/31/2025 (Approximate), Expires: 08/29/2025Start: 07-31-2025 End: 39-15-2458Zyjloahovjvkn metabolic 2000 panel - Serum or PlasmaComprehensive metabolic panel Lab Routine Hypertension, unspecified type Wellness examination Expected: 07/31/2025 (Approximate), Expires: 08/29/2025[facility] HealthcareComment on above:Expected: 07/31/2025 (Approximate), Expires: 08/29/2025Start: 07-31-2025 End: 91-74-0342Sywdt 1996 panel - Serum or PlasmaLipid panel Lab Routine Wellness examination Lipid screening Expected: 07/31/2025 (Approximate), Exp ires: 08/29/2025[facility] HealthcareComment on above:Expected: 07/31/2025 (Approximate), Expires: 08/29/2025Start: 07-30-2025 End: 80-45-5356Rxkierl encounter /04/2025 3:40 PM EDT Office Visit [facility] [address] [place] [address] Eliceo Beltran, [address] [place] [address] ArrivedCaroMont [facility] 230Comment on above:ArrivedStart: 76-33-1882Ouypjkwhd vaccinationLAYTON HOSPITAL HealthcareStart: 07-15-2025 End: 92-24-3886Ncoyvnt encounter kvrngydcf45/20/2025 3:30 PM EDT Routine NOMS Patti MOODY [address] [facility] [address] [place], [id number] Nathan Pop DO [address] [address] NOMShalonda [place] OBGYNStart: 07-15-2025 End: 69-69-6178Gvgwlwcutzuy / ancillary services swumfsdksl22/20/2025 2:30 PM EDT Ancillary Procedure N[facility] Patti IYERGYN [address] [place] [address] [facility] OBGYNStart: 07-15-2025 End: 82-27-3530OEK panel - Blood by Automated countCBC Lab Routine Diabetes mellitus screening Expected: 07/15/2025 (Approximate), Expires: 07/15/2026[facility] Work Phone: comment on above:Expected: 07/15/2025 (Approximate), Expires: 07/15/2026Start: 07-15-2025 End: 20-66-1985Hovtzjnvrcl of glucose 1 hour after glucose challenge for glucose tolerance testGlucose tolerance, 1 hour Lab Routine Diabetes mellitus screening Expected: 07/15/2025 (Approximate), Expires: 07/15/2026[facility] HealthcareComment on above:Expected: 07/15/2025 (Approximate), Expires: 07/15/2026Start: 06-22-2025 End: 75-80-0542Lywpkke encounter dzylwktxa27/28/2025 2:10 PM EDT Routine NOMS Patti OBGYN [address] [facility] [address] [place], [id number] Nathan Pop, [address] [place] [address] ArrivedSt. Joseph Medical Centerevue OBGYNComment on above:ArrivedStart: 06-22-2025 End: 32-97-2275Fbiat fetoprotein, maternalAlpha fetoprotein, maternal Lab Routine Second trimester ([facility]) 17 weeks gestation of ([facility]) Expected: 06/22/2025 (Approximate), Expires: 12/23/2025[facility] Comment on above:Expected: 06/22/2025 (Approximate), Expires: 12/23/2025Start: 06-22-2025 End: 97-23-9269HD for pregnancyUS OB 14+ weeks anatomy scan Imaging Routine Screening, , for anatomic survey ([facility]) Expected: 06/22/2025, Expires: 09/22/2025[facility] Work Phone: comment on above:Expected: 06/22/2025, Expires: 09/22/2025Start: 05-25-2025 End: 20-45-0708Lmkfyqb encounter ejpbioohi71/30/2025 2:40 PM EDT Routine [facility] BCP OB [address] [facility] [place] [address] Nathan Pop, DO [address] [place] [address] NOMS BCP OBStart: 05-01-2025 End: 37-19-6143EPP/RhABO/Rh Lab Routine Missed menses , unspecified gestational age Expected: 05/01/2025 (Approximate), Expires: 05/01/2026[facility] HealthcareComment on above:Expected: 05/01/2025 (Approximate), Expires: 05/01/2026Start: 05-01-2025 End: 10-39-7005Eyfgb type and Indirect antibody screen panel - BloodType and screen Lab Routine Missed menses , unspecified gestational age Expected: 05/01/2025 (Approximate), Expires: 05/01/2026[facility] Work Phone: comment on above:Expected: 05/01/2025 (Approximate), Expires: 05/01/2026Start: 05-01-2025 End: 92-29-7174Idcwe of abuse panel - Urine by Screen methodRapid drug screen, urine Lab Routine , unspecified gestational age Encounter for supervision of normal first in first trimester Expected: 05/01/2025 (Approximate), Expires: 05/01/2026[facility] HealthcareComment on above:Expected: 05/01/2025 (Approximate), Expires: 05/01/2026Start: 01-19-2025 End: 75-94-0438Bmyxbsi encounter procedureNOMS BCP OBComment on above:Arrived Start: 01-19-2025 End: 41-03-8708YbqizwrdjhscZufecxlsmodb Lab Routine Pain in female genitalia on intercourse Endometriosis Expected: 01/19/2025(Approximate), Expires: 01/19/2026 [facility] Work Phone: comment on above:Expected: 01/19/2025 (Approximate), Expires: 01/19/2026Start: 08-18-2024 End: 16-50-5826Szuutap encounter procedureNOMS BCP OBComment on above:Arrived Start: 53-84-2587Vgifjgndj vaccinationPost ClinicStart: 07-22-2024 End: 07-49-0203RO for pregnancyUS PELVIS-TRANSVAG IF INDICATED Imaging Routine Dysmenorrhea, unspecified Expected: 07/22/2024 (Approximate), Expires: 07/22/2025[facility] Work Phone: comment on above:Expected: 07/22/2024 (Approximate), Expires: 07/22/2025Start: 06-23-2024 End: 41-19-4572Tqlpgwh encounter /29/2024 10:30 AM EDT Office Visit Obstetrics/Gynecology [address] [address] Charlene Rodriguez DO [address] [place] [address] 2 WEEK POST OPObstetrics/GynecologyComment on above:2 WEEK POST OPStart: 05-27-2024 End: 90-92-1861Xfvnmhbcd to same day surgery nwwfwm1105/27/2024 7:30 AM EDT - 05/27/2024 9:30 AM EDT Surgery [facility] Surgery [address] [place] [address] Charlene Rodriguez DO [address] [place] [address] LAPAROSCOPY FULGURATION OR EXCISION OF LESIONS OF THE OVARY PELVIC VISCERA OR PERITONEAL SURFACE BY ANY METHODWilson Memorial Hospital SurgeryComment on above:LAPAROSCOPY FULGURATION OR EXCISION OF LESIONS OF THE OVARY PELVIC VISCERA OR PERITONEAL SURFACE BYANY METHODStart: 05-27-2024 End: 01-88-6761Pyyy fulg/exc ovary viscera/peritoneal surfaceLAPAROSCOPY FULGURATION OR EXCISION OF LESIONS OF THE OVARY PELVIC VISCERA OR PERITONEAL SURFACE BYANY METHOD Endometriosis 05/27/2024 7:30 AM EDTME ORStart: 05-27-2024 Subsequent hospital visit by taxzwynaf24/02/2024 7:30 AM EDT Hospital Encounter [facility] [address] [place] [address] Charlene Rodriguez DO [address] [place] [address] [phone] (F ax) Endometriosis [N80.9][facility] SurgeryComment on above:Endometriosis [N80.9]Start: 88-63-7549Qbzzgxmak vaccinationInfluenza Vaccine (#1)[facility] HealthcareComment on above:Postponed from 07/27/2023 (Patient Refused)Start: 05-20-2024 End: 93-78-4175vcncfmcybw08/25/2024 10:00 AM EDT [facility] ASSOCIATE DEAN OF WOMEN UROL ESMOND [facility] [address] [address] [place], 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 [address] [address] RN [facility] MOBComment on above:RN TEACHINGStart: 04-22-2024 End: 90-60-9079Ylztsmi encounter nkgopkyae75/28/2024 9:00 AM EDT Office Visit [facility] [address] [place] [address] Denny Rodríguez MD [address] [place] [address] NOMS [facility] FMStart: 90-25-6875JDcN,Tdap and Td Vaccines (7 - Td or Tdap)DTaP,Tdap and Td Vaccines (7 - Td or Tdap)[facility] SystemStart: 40-77-7652ULxR/Tdap/Td Vaccines (7 - Td or Tdap)DTaP/Tdap/Td Vaccines (7 - Td or Tdap)[facility] HealthStart: 66-98-6219Cyxoa microalbumin profileDTaP,Tdap,Td Vaccine (7 - Td or Tdap)[facility]: 01-30-2024 End: 59-48-1191Mcdwfhm encounter wxqxrirqr06/06/2024 11:10 AM EST Consult [facility]OM[facility] BCP OB [address] [place] [phone] Nathan Pop, DO [address] [place], [place] [phone] NOMS BCP OBStart: 01-15-2024 End: 34-23-0364Qpjvmnnzpcgk / ancillary services nsjmjajlyc78/20/2024 8:00 AM EST Ancillary Procedure [facility] OB [address] [facility] [place] [address] NOMS BCP OBStart: 01-10-2024 End: 43-95-7769YA for pregnancyUS PELVIS-TRANSVAG IF INDICATED Imaging Routine Pelvic pain in female Expected: 01/10/2024 (Approximate), Expires: 01/10/2025 [facility] Work Phone: comment on above:Expected: 01/10/2024 (Approximate), Expires: 01/10/2025Start: 48-41-2311Duzhoegwix Health ScreeningBehavioral Health ScreeningTogus VA Medical Centertart: 28-05-9025Qppzsvmvvm AssessmentDepression AssessmentTogus VA Medical Centertart: 78-04-3308Vbgwf-19 Vaccine ( season) Covid-19 Vaccine ( season)[facility]: 44-85-4123Bpbjkwfyg vaccinationTogus VA Medical Centertart: 49-20-3979JEQNTHCJON ASSESSMENTDEPRESSION ASSESSMENTTogus VA Medical Centertart: 48-60-9162Wnypseicq vaccinationInfluenza Vaccine (#1)[facility] HospitalStart: 30-00-6537HVT, Provider: Charlene Rodriguez, Status: Pen, Time: 1:30 PMFUV, Provider: Charlene Rodriguez, Status: Pen, Time: 1:30 PM WN-LDKPS-Bhhwty [address] Work Phone: Start: 72-26-4478WUS, Provider: Charlene Rodriguez, Status: Pen, Time: 11:15 AMFUV, Provider: Charlene Rodriguez, Status: Pen, Time: 11:15 AM GR-LUJKS-Dzajnc [address] Work Phone: Start: 23-49-0850YNA TESTINGPAP TESTINGTogus VA Medical Centertart: 78-95-6773Deqjtpjho for malignant neoplasm of cervixTogus VA Medical Centertart: 73-57-5379XLbR,Tdap and Td Vaccines (1 - Tdap)DTaP,Tdap and Td Vaccines (1 - Tdap)[facility]art: 11-49-6008LRyG/Tdap/Td Vaccines (1 - Tdap)DTaP/Tdap/Td Vaccines (1 - Tdap)[facility] HospitalStart: 19-55-4212Tafgv microalbumin profileTogus VA Medical Centertart: 02-72-2106Uutbx BMI Follow Up Plan Adult BMI Follow Up PlanFormerly [facility] Hospitaltart: 33-14-9687Nvfwz BMI ScreeningAdult BMI ScreeningFormerly [facility] Hospitaltart: 64-67-5858LJKDCU PCP TEAM CHRONIC DISEASE VISITANNUAL PCP TEAM CHRONIC DISEASE VISITMer[facility] Start: 06-93-2910YQ CONTROLLED (<130/80)BP CONTROLLED (<130/80)[facility] Start: 59-45-1747CIMYUTXLE C SCREENINGHEPATITIS C SCREENINGMercy Health [facility] Start: 54-24-6563Itmcgznjg C screeningHepatitis C ScreeningMercy Health [facility] Start: 14-58-0505ZCB SCREENINGHIV SCREENINGTogus VA Medical Centertart: 31-78-2379XTG screeningHIV ScreeningTogus VA Medical Centertart: 59-57-8282Pmevcraesn Screening Depression ScreeningFormerly [facility] Hospitaltart: 10-30-1633Jzmbvkl Screening Tobacco ScreeningFormerly [facility] Hospitaltart: 43-19-0836Uubqpszwr vaccination Varicella Vaccines (1 of 2 - 2-dose childhood series)[facility]: 78-54-6435[facility] Vaccines (1 of 1 - Standard series)MMR Vaccines (1 of 1 - Standard series)[facility]: 92-43-9604Wpqhcmhcl vaccinationVaricella Vaccines (1 of 2 - 2-dose childhood series)[facility]: 48-29-2245VRALS-19 VACCINE (#1)COVID-19 VACCINE (#1)[facility]: 92-56-8844ZLHUBOBBM B (1 of 3 - 3-dose series)HEPATITIS B (1 of 3 - 3-dose series)[facility]: 78-08-1382Oanxhhqpe B Vaccine (1 of 3 - 3-dose series)Hepatitis B Vaccine (1 of 3 - 3-dose series)[facility]: 21-02-4860Oqvekqprx B Vaccines (1 of 3 - 3-dose series)Hepatitis B Vaccines (1 of 3 - 3-dose series)[facility] HospitalStart: 24-81-3260Wprus panelLipid PanelSumme HealthBacteria identified in Urine by CultureUrine culture Microbiology Routine Missed menses Ordered: 05/01/2025[facility] HealthcareComment on above:Ordered: 5CBC W Auto Differential panel - BloodCBC and differential Lab Routine Missed menses , unspecified gestational age Ordered: 05/01/2025[facility] HealthcareComment on above:Ordered: 05/01/2025ytology Cervical or vaginal smear or scraping studyPap Smear Pathology and Cytology Routine Well woman exam with routine gynecological exam Ordered: 08/18/2024[facility] Work Phone: comment on above:Ordered: 08/18/2024Hemoglobin A1c/Hemoglobin.total in BloodHemoglobin A1c Lab Routine Missed menses , unspecified gestational age Ordered: 05/01/2025[facility] HealthcareComment on above: Ordered: 05/01/2025Hepatitis B virus surface Ag [Presence] in Serum or Plasma by ImmunoassayHepatitis B surface antigen Lab Routine Missed menses , unspecified gestational age Ordered: 05/01/2025[facility] HealthcareComment on above: Ordered: 05/01/2025Hepatitis C virus Ab [Presence] in Serum or Plasma by ImmunoassayHepatitis C antibody Lab Routine Missed menses , unspecified gestational age Ordered: 05/01/2025[facility] HealthcareComment on above:Ordered: 05/01/2025HIV-1/HIV-2 antigen/antibody combination immunoassayHIV-1 and HIV-2 antibodies Lab Routine Missed menses , unspecified gestational age Ordered: 05/01/2025[facility] HealthcareComment on above:Ordered: 05/01/2025 End: 24-64-3855Tzl pelvis w/o & w/contrast materialMRI FEMALE PELVIS WO/W IVCON Radiology Routine Pelvic and perineal pain 1 Occurrences starting 05/17/2023 until [facility] Work Phone: Comment on above:1 Occurrences starting 05/17/2023 until 4Reagin Ab [Presence] in Serum by RPRRPR Lab Routine Missed menses , unspecified gestational age Ordered: 05/01/2025[facility] Comment on above:Ordered: 05/01/2025Rubella antibody, IgGRubella antibody, IgG Lab Routine Missed menses , unspecified gestational age Ordered: 04/2025[facility] HealthcareComment on above:Ordered: 05/01/2025 End: 04-81-7857DsmibjWestern [facility] Center Work Phone: Comment on above:Once (Lab) for 1 Occurrences starting 11/30/2022 until 11/30/2022, 1 completed End: 46-82-6876SJ for pregnancyUS OB follow up transabdominal approach Imaging Routine Gestational diabetes mellitus (GDM), antepartum, gestational diabetes method of control unspecified ([facility]) every 4 weeks for 2 Occurrences starting 09/16/2025 until 12/17/2025[facility] Work Phone: comment on above:every 4 weeks for 2 Occurrences starting 09/16/2025 until 12/17/2025[facility] Immunizations Immunization DateImmunizationNotesCare FndlnvwnMbczfiux85-58-1754ieahwqpda A vaccine, adult dosageCorey Kiesha DO Work Phone: [facility] CenterJgokcmxszw33-01-0400pjgdx papilloma virus vaccine, quadrivalentCorey Kiesha DO Work Phone: [facility] CenterXfazzkiohe59-98-2638ococyhuvk, seasonal, injectable, preservative freeCorey Kiesha DO Work Phone: [facility] CenterCinffyrklr19-31-8725bsmqbpcqt virus vaccine, unspecified formulationGina Moschella DO Work Phone: [facility] HospitalItihuc17-99-2316dozwf papilloma virus vaccine, quadrivalentCorey Kiesha DO Work Phone: [facility] CenterSxrqjsohgi61-61-6251eyselnbqf A vaccine, adult dosageCorey Kiesha DO Work Phone: [facility] CenterUopppasinw74-47-1807liuzu papilloma virus vaccine, quadrivalentCorey Kiesha DO Work Phone: [phone] CenterWrgfmcgrmj04-12-1298bjltdsm toxoid, reduced diphtheria toxoid, and acellular pertussis vaccine, adsorbedCorey Kiesha DO Work Phone: [facility] CenterUfeufpjdlc26-76-4811iokcintdfsjlb polysaccharide (groups A, C, Y and W-135) diphtheria toxoid conjugate vaccine (MCV4P)Nathan Kiesha DO Work Phone: [phone] [place], [place] [address]Pzbxjrapzr33-75-1306egonaoihtm, tetanus toxoids and acellular pertussis vaccine, unspecified formulationCorey Kiesha DO Work Phone: [phone] [place], [place] [address]Njqektzsxx56-36-0688nuwldyo, mumps and rubella virus vaccineCorey Kiesha DO Work Phone: [facility] CenterVmnxiikcre78-15-7055bwdnayumgm vaccine, inactivatedCorey Kiesha DO Work Phone: [phone] CenterHhgwvmihfa46-50-1666zycdkrrxoe, tetanus toxoids and acellular pertussis vaccine, unspecified formulationCorey Kiesha DO Work Phone: [facility] CenterRqxafpvpxh47-78-5907ZWE-Akeiwvpahuj influenzae type b conjugate vaccineCorey Kiesha DO Work Phone: [phone] CenterTvtyivexqa94-63-3666chbfnaqqh B vaccine, pediatric or pediatric/adolescent dosageCorey Kiesha DO Work Phone: [facility] CenterRvvgsfcild93-83-0088roykbbg, mumps and rubella virus vaccineCorey Kiesha DO Work Phone: [phone] CenterAiiagnsmxk64-74-9871vtyqmsurd poliovirus vaccine, live, oralCorey Kiesha DO Work Phone: [phone] [place], [place] [address]Zwmpevdgnf17-72-9627MXK-Owgluphpvnh influenzae type b conjugate vaccineCorey Kiesha DO Work Phone: [phone] CenterQhwkdqrikz00-51-8568tjqorhsqe B vaccine, pediatric or pediatric/adolescent dosageCorey Kiesha DO Work Phone: [phone] CenterQhocdluvjq65-79-7463yvsmihvhx poliovirus vaccine, live, oralCorey Kiesha DO Work Phone: [facility] CenterDhbmzuycnc99-09-3761YFP-Krsiyveagdv influenzae type b conjugate vaccineCorey Kiesha DO Work Phone: [facility] for ChildrenBfhhdmhryo68-93-4055tqnedfylq B vaccine, pediatric or pediatric/adolescent dosageCorey Kiesha DO Work Phone: [facility] for ChildrenTimifrenam19-22-3631rlcozjkxt poliovirus vaccine, live, oralCorey Kiesha DO Work Phone: NO[facility] HealthcareNEGATED: Highlighted row has not occurred!15-05-3416rvnvkja, mumps and rubella virus vaccineKatherine Ryder DO Work Phone: [facility] HealthComment on above:Deferred: Other - Rubella ImmuneNEGATED: Highlighted row has not occurred!42-58-5477ngtytun toxoid, reduced diphtheria toxoid, and acellular pertussis vaccine, adsorbedKatcarlos Ryder DO Work Phone: [facility] HealthComment on above:Deferred: No longer needed - Refused Tdap vaccine. Payers DatePayer CategoryPayerPolicy [id number]-[id number] Managed Care - [employer] [id number] Health Insurance [employer] Member Subscriber Plan / Payer (Effective 2024-Present) Name: Juhi Gama Relation to Subscriber: Self Name: Juhi Gama Payer ID: Not on file Type: Not on file Address: [address] [place] [id number] [id number] HMO [facility] MEDICAID [id number] [id number] [id number] Health [id number] 840.1.525178.[id number] 01.11.840.1.087402.3.57[id number] 20.1.058884.3.57[id number] 20.1.432851.3.57[id number] 2.16840.1.961065.3.57[id number] 2.16840.1.122757.3.57[id number] 2.840.1.243968.3.57[id number] 2.840.1.090609.3.57[id number] 2.0.1.579468.3.57[id number] 2.0.1.367714.3.57[id number] 2..1.367858.3.57[id number] 2..1.025122.3.57[id number] 2.840.1.952310.3.57[id number] 2.0.1.006113.3.57[id number] 2.840.1.860334.3.57[id number] 2.0.1.076624.3.57[id number] 2.840.1.298396.3.57[id number] 2.840.1.700920.3.57[id number] 2.16.840.1.820811.3.57[id number] 2.16.840.1.274084.3.57[id number] 2.16.840.1.279757.3.57[id number] 2.16.840.1.407766.3.57[id number] 2.16.840.1.137119.3.57[id number] 2.16.840.1.631816.3.57[id number] 2.160.1.24[id number] 2.0.1.738177.3.579.2.531 Social History DateTypeDetailFacilityStart: 01-06-2021 End: 05-76-4367Jcruiu uses seat beltAlways uses seat beltNOMS HealthcareStart: 12-10-2018 End: 61-68-0484Tywdeje smoking statusNever smoked tobacco (finding)[facility] Clinictart: 59-61-5008Rggnqrv smoking statusNeverCleveland Clinictart: 01-06-2021 End: 79-25-0675Kdl Assigned At [facility] Albumatic Other TobaCleveland Clinic FoundationComment on above: denies.Tobacco smoking statusCleveland Clinictart: 12-10-2018 End: 42-03-6464Ojiyexw use and exposureSmokeless tobacco non-userTogus VA Medical Centertart: 04-11-2023 End: 23-77-1371Omzunww intakeCurrent drinker of alcohol (finding)[facility] Centertart: 66-49-1031Ewlsejx Commentmaybe a few drinks a monthMercy Health [facility] Start: 64-68-1327Xjc Assigned At BirthNot on [facility] HealthStart: 01-10-2024 End: 09-84-4872Xkfmzil intakeLifetime non-drinker (finding)[facility] HealthWithin the last year, have you been afraid of your partner or ex-partner?NoNOMS HealthcareAre you now , , , , never or living with a partner?Living with partnerNOMS HealthcareHow often to you have a drink containing alcohol?Monthly or lessNOMS HealthcareHow many standard drinks containing alcohol do you have on a typical day?1 or 2NOMS HealthcareHow often do you have 6 or more drinks on 1 occasion?NeverNOMS HealthcareDo you feel stress - tense, restless, nervous, or anxious, or unable to sleep at night because yourmind is troubled all the time - these days [OSQ]Not at allNOMS Healthcare(I/We) worried whether (my/our) food would run out before (I/we) got money to buy more.Never trueNOMS HealthcareStart: 44-16-9552Avuicgymj83WXEU HealthcareStart: 91-64-8658Fendkhe Commentcaffeine: 1-2 cups per day, coffee and popNOAZ HealthcareStart: 22-51-8651Tvvvvgs SDOH IPV Waxe9Srspc HealthStart: 46-80-0357Becckmn SDOH Housing Places Wudqx5Wbain HealthStart: 04-12-2022 [facility] HealthStart: 11-18-2022 End: 37-41-5494Ziuixmyl to SARS-CoV-2 (event)Not sureSuglenbeigh hospital HealthAre you now , , , , never or living with a partner? MarriedNOMS HealthcareDo you feel stress - tense, restless, nervous, or anxious, or unable to sleep at night because yourmind is troubled all the time - these days [OSQ]Only a littleNOMS HealthcareStart: 12-02-2018 End: 76-88-2883JqoVkneza (finding)[facility] Hospitaltart: 00-25-6999Dwg Assigned At [facility] Hospitaltart: 08-19-2025 End: 93-25-7556Twtvflooz beverage intakeCurrent non-drinker of alcohol (finding) [facility] Medical Equipment Procedure CodeEquipment CodeEquipment Original TextEquipment IdentifierDates [id number]: 08-20-2025 End: each by In Vitro route Daily Use to check FSBS four times daily [id number]: 08-20-2025 End: 69-46-1532Zbl pen needles to give insulin.[id number]: 09-04-2025 Functional Status IwmjCqpiuwstfeNoxojpUwujkmmm02-82-6733Gsqhi score [AUDIT-C]0 09/10/2025 10:17 AM EDT Danae Ramirez [facility]09-04-2025Patient Health Questionnaire 2 item (PHQ-2) [Reported][facility] CenterWuqwcgctco48-27-8661Fnqfnfldir StatusN/[facility]03-08-2023Functional StatusN/[facility]02-04-2023Functional StatusN/[facility] 36-73-7136Bzyuonkiuc StatusN/[facility]08-19-2022N/[facility] Clinical Notes 04-18-2022 to 09-16-2025 Note Date & VdgsAxuoLxypukdo42-44-4517 Miscellaneous Notes* Telephone Encounter - Cha Harris RN - 09/16/2025 5:47 PM EDT Called pt to discuss her blood sugars and pt let me know that she was testing per meals.Kayleigh meza reviewed her blood sugars and would santi her to increase her glargine int he evening to 17 units and since these were true pre meal numbers she would like her to start 5 units of lantus in the morning as well. Pt verbalized understanding and will start tonight. Let her know that she only needs to test 4 times per day fasting and 1 hour after first bite but if she feels more comfortable testing pre and post meals she can. She will send in new blood sugars next week. documented in this encounterCinc[facility]10-22-2025 Telephone encounter Note* Telephone Encounter - Cha Harris RN - 09/16/2025 5:47 PM EDT Called pt to discuss her blood sugars and pt let me know that she was testing per meals.Kayeligh meza reviewed her blood sugars and would santi her to increase her glargine int he evening to 17 units and since these were true pre meal numbers she would like her to start 5 units of lantus in the morning as well. Pt verbalized understanding and will start tonight. Let her know that she only needs to test 4 times per day fasting and 1 hour after first bite but if she feels more comfortable testing pre and post meals she can. She will send in new blood sugars next week. [facility]10-22-2025 History of Present illness Narrative* Steph Keane NP - 09/16/2025 3:20 PM EDT Reason for Appointment: Patient ID: Juhi Gama is a 30 y.o. female who [...] John San infection GDM (gestational diabetes mellitus) ([facility]) Headache History of menstrual cramps ([facility]) Varicella zoster Visual impairment HISTORY PAST MEDICAL HISTORY SOCIAL HISTORY Past Medical History: Diagnosis Date Amenorrhea d/t oral contraceptive pills Endometriosis John San infection GDM (gestational diabetes mellitus) ([facility]) Headache History of menstrual cramps severe Hypertension ([facility]) x1 Varicella zoster unsure Visual impairment [...] Laterality Date APPENDECTOMY 05/2016 at [facility] [place] retained placenta DISTAL [...] nursing note reviewed. Exam conducted with a director sanitation bureau present. Vitals: Estimated body mass index is 29.78 kg/m as calculated from the following: Height as of 07/30/25: 5' 2 . Weight as of this encounter: 162 lb 12.8 oz. BP: 120/80 Patient's last menstrual period was 02/21/2025. Assessment/Plan ICD-10-CM 1. 29 weeks gestation of ([facility]) Z3A.29 POCT urinalysis dipstick manually resulted 2. Third trimester ([facility]) Z34.93 POCT urinalysis dipstick manually resulted 3. Hypertension affecting , antepartum ([facility]) O16.9 4. Gestational diabetes mellitus (GDM), antepartum, gestational diabetes method of control unspecified ([facility]) O24.419 Return OB: Patient presents today [...] and continues to report glucose log to [facility]. Follow up Ultrasound in 4 weeks. Orders Placed This Encounter Procedures POCT urinalysis dipstick manually resulted Follow Up: Patient is to return to office in 2 week for routine OB appointment. Documented by Steph Keane NP on behalf of: Nathan Pop DO documented in this encounterAudrain Medical CenterTopfrqlswy55-72-3662 History of Present illness Narrative* Madhuri Monroy MD - 09/10/2025 11:00 AM EDT Video Visit via Real-time Synchronous Audiovisual Provider Location: [facility], MATERNAL- MEDICINE [address], [address] [place] [address] Patient Location: Other [place] [facility] office Patient Location Dry Mixer: None Video Visit Consent Statement: I discussed [...] that there are some limitations compared to wrta-ji-ssrm evaluations. We elected to proceed. REASON FOR OFFICE VISIT: follow up HISTORY OF PRESENT ILLNESS: Juhi Gama is a pleasant 30 y.o. G [...] and the other consultants, we search on Kasumi-sou and all the available care everywhere [facility] I did review all the imaging studies of the patient available on EMR, ordered by the primary care physician and the other corporate learning consultant HABITS: Patient activity no restrictions, diet [...] checking blood glucose and remote evaluation through [facility] office until delivery. - Discontinue blood glucose evaluation and Lantus and offer formal glucose tolerance test around 6 weeks . - follow-up survey with the [facility] office visits scheduled. - continue serial [...] patient is in complete care of her photography professor. Patient does have ultrasound video visit scheduled with us. Thank you for allowing me to participate in Juhi Gama . If there any questions please do not hesitate to contact us. Sincerely, MADHURI MONROY MD * Danae Ramirez RN - 09/10/2025 [...] to mention to the provider today? none documented in this encounterCincinnati [facility]'s [facility] Center10-10-2025 History of Present illness Narrative* Radha Magdaleno RN - 09/04/2025 3:00 PM [...] Yes Have you been seen here at [facility] in a previous ? No Recent ER visits or hospitalizations? 09/03/25 [place] to r/o preeclampsia. Patient states labs WNL Bring blood sugar log or meter with you today? (Please bring them with you for every visit at [facility]) Yes Flu vaccine (Sep-January)? N/A Any concerns that you would like me to mention to the provider today? No * Mine Denise MD - 09/04/2025 3:00 PM EDT REASON FOR CONSULTATION: Maternal gestational diabetes. HISTORY OF PRESENT ILLNESS: Juhi Gama is a pleasant 30 y.o. G [...] and the other consultants, we search on Kasumi-sou and all the available care everywhere epic I did review all the imaging studies of the patient available on EMR, ordered by the primary care physician and the other corporate learning consultant HABITS: Patient activity no restrictions, diet [...] of excess red blood cells after the infant has been delivered. We reviewed with her [...] checking blood glucose and remote evaluation through [facility] office until delivery. 5. 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 Patient does have ultrasound video visit scheduled with us. Thank you for allowing me to participate in Juhi Gama . If there any questions please do not hesitate to contact us. Sincerely, MINE DENISE MD * Radha Magdaleno RN - [...] with questions or concerns. documented in this encounterLouis Stokes Cleveland VA Medical CenterSNTMNT [facility] HospitalGqvesd68-18-7854 History of Present illness Narrative* Steph Keane, STACKER OPERATOR - 09/03/2025 3:50 PM EDT Reason for Appointment: Patient ID: Juhi Gama is a 30 y.o. female who [...] meal for a total of 4times daily. nwqvkeyufr-gznmxur-nyohztyq (Fiorinal) 50-325-40 MG capsule 1 capsule, Oral, [...] Laterality Date APPENDECTOMY 05/2016 [place] [facility] [place] retained placenta DISTAL [...] nursing note reviewed. Exam conducted with a director sanitation bureau present. Vitals: Estimated body mass index is 29.41 kg/m as calculated from the following: Height as of 25: 5' 2 . Weight as of this encounter: 160 lb 12.8 oz. BP: 170/90 Patient's last menstrual period was 02/21/2025. ASSESSMENT & PLAN ICD-10-CM 1. 27 weeks gestation of ([facility]) Z3A.27 POCT urinalysis dipstick manually resulted 2. Second trimester ([facility]) Z34.92 Documented by Steph Keane NP on behalf of: Steph Keane NP documented in this encounterAudrain Medical CenterUpaabyrxtu15-39-3972 Miscellaneous Notes* Telephone Encounter - Cha Harris RN - [...] Pt asked to be transferred to the [facility] to make that appt. documented in this encounterCincinnati [facility] Center10-07-2025 Telephone encounter Note* Telephone Encounter - Cha Harris RN - [...] Pt asked to be transferred to the [facility] to make that appt. [facility]10-02-2025 History of Present illness Narrative* Steph Keane NP - 08/27/2025 3:20 PM EDT Reason for Appointment: Patient ID: Juhi Gama is a 30 y.o. female who [...] San infection Headache History of menstrual cramps ([facility]) Varicella zoster Visual impairment HISTORY PAST MEDICAL HISTORY SOCIAL HISTORY Past Medical History: Diagnosis Date Amenorrhea d/t oral contraceptive pills Endometriosis John San infection Headache History of menstrual cramps severe Hypertension ([facility]) x1 Varicella zoster unsure Visual impairment w/ [...] Laterality Date [place]ENDECTOMY 05/2016 [place] [facility] [place] retained placenta DISTAL [...] nursing note reviewed. Exam conducted with a director sanitation bureau present. Vitals: Estimated body mass index is 29.23 kg/m as calculated from the following: Height as of 07/30/25: 5' 2 . Weight as of this encounter: 159 lb 12.8 oz. BP: (!) 158/92 Patient's last menstrual period was 02/21/2025. ASSESSMENT & PLAN ICD-10-CM 1. 26 weeks gestation of ([facility]) Z3A.26 POCT urinalysis dipstick manually resulted 2. Second trimester ([facility]) Z34.92 Return OB: Patient presents today [...] labs and have her evaluated today at [facility]. I discussed with OB today and they are aware that patient is coming to be ev aluated. Orders Placed This Encounter Procedures POCT urinalysis dipstick manually resulted Follow Up: Patient is to return to office in 2 week for routine OB appointment. Documented by Steph Keane NP on behalf of: Steph Keane NP documented in this encounterAudrain Medical CenterEwckdzwffy33-23-0825 Group counseling note* Group Note - Kerline Augustin RD - 08/24/2025 1:30 PM EDT Patient: Juhi Gama Date: 08/24/2025 Vitals: 08/24/25 1555 Weight: [...] Face to face time was 80 minutes. [employer] Work Phone: [phone]) 655-174309-29-2025 Miscellaneous Notes* Group Note - Kerline Augustin RD - 08/24/2025 1:30 PM EDT Patient: Juhi Galvanaishwarya Date: 08/24/2025 Vitals: 08/24/25 1555 Weight: [...] time was 80 minutes. documented in this encounterCincinnati Children's Hospital Medical Center09-17-2025 History of Present illness Narrative* Steph Keane NP - 08/12/2025 2:40 PM EDT Reason for Appointment: Patient ID: Juhi Gama is a 30 y.o. female who [...] Laterality Date APPENDECTOMY 05/2016 at [facility] [place] retained placenta DISTAL [...] nursing note reviewed. Exam conducted with a director sanitation bureau present. Vitals: Estimated body mass index is 27.82 kg/m as calculated from the following: Height as of 07/30/25: 5' 2 . Weight as of this encounter: 152 lb 1.9 oz. BP: 138/82 Patient's last menstrual period was 02/21/2025. ASSESSMENT & PLAN ICD-10-CM 1. 24 weeks gestation of ([facility]) Z3A.24 POCT urinalysis dipstick manually resulted 2. Second trimester ([facility]) Z34.92 POCT urinalysis dipstick manually [...] on Labetalol 100mg BID. Will refer to [facility] for evaluation. Patient deniesany Headache or blurred vision. Documented by Steph Keane NP on behalf of: Nathan Pop DO documented in this encounterAudrain Medical CenterUexaooptxg85-77-7585 History of Present illness Narrative* Eliceo Beltran DO - 07/30/2025 3:40 PM EDTAssociated Problem(s): Hypertension Record Blood Pressures 2-4 times weekly and record. Return with readings at next appointment. Call with readings if sees significant changes * Eliceo Beltran DO - 07/30/2025 3:40 PM EDT Images from the original note were not included. Subjective ?Quick Links Last Note in Specialty Snapshot Current Meds Patient ID: Juhi Gama is a 30 y.o. female who presents for Well Visit. Subjective Juhi Gama is a 30 y.o. female and [...] infection Headache History of menstrual cramps Hypertension ([facility]) Varicella zoster Visual impairment Objective ?Quick Links [...] Orders: Lipid panel; Future documented in this encounterAudrain Medical CenterAptckhhypy48-43-1095 History of Present illness Narrative* Christine Ravi LPN - 07/15/2025 3:30 PM EDT Reason for Appointment: Patient ID: Juhi Gama is a 30 y.o. female who [...] San infection Headache History of menstrual cramps ([facility]) Varicella zoster Visual impairment HISTORY PAST MEDICAL HISTORY SOCIAL HISTORY Past Medical History: Diagnosis Date Amenorrhea d/t oral contraceptive pills Endometriosis John San infection Headache History of menstrual cramps severe Hypertension ([facility]) x1 Varicella zoster unsure Visual impairment w/ [...] Laterality Date APPENDECTOMY 05/2016 [place] [facility] [place] retained placenta DISTAL [...] nursing note reviewed. Exam conducted with a director sanitation bureau present. Vitals: Estimated body mass index is 26.48 kg/m as calculated from the following: Height as of 12/30/24: 5' 2 . Weight as of this encounter: 144 lb 12.8 oz. BP: 120/80 Patient's last menstrual period was 02/21/2025. ASSESSMENT & PLAN ICD-10-CM 1. 20 weeks gestation of ([facility]) Z3A.20 POCT urinalysis dipstick manually resulted 2. Second trimester ([facility]) Z34.92 POCT urinalysis dipstick manually resulted [...] of: Nathan Pop DO documented in this encounterAudrain Medical CenterAcevxviube37-69-9168 History of Present illness Narrative* Steph Keane NP - 06/22/2025 2:10 PM EDT Reason for Appointment: Patient ID: Juhi Gama is a 30 y.o. female who [...] Laterality Date APPENDECTOMY 05/2016 at [facility] 12/2022 retained placenta DISTAL [...] nursing note reviewed. Exam conducted with a director sanitation bureau present. Vitals: Estimated body mass index is 26.73 kg/m as calculated from the following: Height as of 25: 5' 2 . Weight as of this encounter: 146 lb 1.9 oz. BP: 118/74 Patient's last menstrual period was 02/21/2025. ASSESSMENT & PLAN (Z34.92) Second trimester ([facility]) Plan: POCT urinalysis dipstick manually resulted, Alpha fetoprotein, maternal, Alpha fetoprotein, maternal (Z3A.17) 17 weeks gestation of ([facility]) Plan: POCT urinalysis dipstick manually resulted, Alpha fetoprotein, maternal, Alpha fetoprotein, maternal (Z36.89) Screening, , for anatomic survey ([facility]) Plan: US OB 14+ weeks [...] of: Nathan Pop DO documented in this encounterAudrain Medical [id number] History of Present illness Narrative* Steph Keane NP - 05/25/2025 2:40 PM EDT Reason for Appointment: Patient ID: Juhi Gama is a 30 y.o. female who [...] Laterality Date APPENDECTOMY 05/2016 at [facility] 12/2022 retained placenta DISTAL [...] nursing note reviewed. Exam conducted with a director sanitation bureau present. Vitals: Estimated body mass index is 25.24 kg/m as calculated from the following: Height as of 12/30/24: 5' 2 . Weight as of this encounter: 138 lb. BP: 122/80 Patient's last menstrual period was 02/21/2025. ASSESSMENT & PLAN ICD-10-CM 1. Second trimester ([facility]) Z34.92 POCT urinalysis dipstick manually resulted 2. 13 weeks gestation of ([facility]) Z3A.13 Return OB: Patient presents [...] of: Nathan Pop DO documented in this encounterAudrain Medical [id number] History of Present illness Narrative* Hina Go LPN - 05/01/2025 9:00 AM EDT Reason for Appointment: Patient ID: Juhi Gama is a 30 y.o. female who [...] Laterality Date APPENDECTOMY 05/2016 at [facility] 12/2022 retained placenta DISTAL [...] or undercooked meat, and stay away from [facility]. Patient has also been advised to not [...] by: Hina Go LPN documented in this encounterAudrain Medical [id number] History of Present illness Narrative* Candis Yanes LPN - 01/19/2025 2:50 PM EST Reason for Appointment: Patient ID: Juhi Gama is a 29 y.o. female who presents for Painful [place] Patient presents today for Consult appointment. MEDICATIONS Current Outpatient Medications Medication Instructions mskdxrwhls-havyilhfgepaz-gvcdvwnj 50-325-40 MG tablet 1 tablet, Oral, Every 6 hours PRN meloxicam (MOBIC) 15 mg, Oral, Daily metoprolol succinate XL (Toprol-XL) 25 MG 24 hr tablet Take 1 tablet by mouth daily ALLERGIES No Known Allergies PROBLEMS Active Ambulatory Problems Diagnosis Date Noted Acquired equinus deformity of foot 03/29/2023 Displacement of cervical intervertebral disc without myelopathy 03/29/2023 Dysmenorrhea 03/29/2023 Endometriosis 03/29/2023 Gastroparesis 03/29/2023 Hypertension ([facility]/HCC) 03/29/2023 Intractable migraine without aura and with status migrainosus ([facility]/HCC) 03/29/2023 Migraines ([facility]/HCC) 03/29/2023 Chronic pelvic pain in female 03/29/2023 Pain in female genitalia on intercourse 03/29/2023 Pain on swallowing 03/29/2023 Panic disorder ([facility]/HCC) 03/29/2023 Patellofemoral disorders, left knee 03/29/2023 Patellofemoral disorders, right knee 03/29/2023 Posterior calcaneal exostosis 03/29/2023 Scapular dyskinesis 03/29/2023 Scoliosis 03/29/2023 Seasonal allergic rhinitis due to pollen 03/29/2023 Tachycardia, paroxysmal ([facility]) 03/29/2023 Tension headache 03/29/2023 Vitamin B12 [...] Headache History of menstrual cramps severe Hypertension ([facility]) x1 Varicella zoster unsure Visual impairment [...] Laterality Date APPENDECTOMY 05/2016 at [facility] 12/2022 retained placenta DISTAL [...] nursing note reviewed. Exam conducted with a director sanitation bureau present. Vitals: Estimated body mass index is 25.99 kg/m as calculated from the following: Height as of 12/30/24: 5' 2 . Weight as of this encounter: 142 lb 1.9 oz. BP: 122/78 No LMP recorded. ASSESSMENT & PLAN ICD-10-CM 1. Pain in female genitalia on intercourse N94.10 Patient stopped OCP beginning of December 09, 2024. Had normal cycle in December. Patient to have USdone that was ordered June of 2024. Discussed fertility medication to help with conceiving. Patient has endometriosis and has had a few scopes done in the past. Patient to call office in 2 months if she desires to have Femara to help to conceive. Handout reveiwed with patient and patient given direct extension to Neuropsychology Service Director for any questions/concerns pertaining to fertility. Documented by Candis Yanes LPN on behalf of: Nathan Pop DO documented in this encounterAudrain Medical [id number] History of Present illness Narrative* Eliceo Beltran DO - 12/30/2024 3:40 PM EST Images from the original note were not included. SUBJECTIVE: Juhi Gama is a 29 y.o. female presents [...] Laterality Date APPENDECTOMY 05/2016 at [facility] 12/2022 retained placenta DISTAL [...] min Stress: No Stress Concern Present (12/29/2024) [employer] - Occupational Stress Questionnaire Feeling of Stress : Only a little Social Connections: Unknown (12/29/2024) Social Connection and Isolation Panel [NHANES] Frequency of Communication with Friends and Family: More than three times a week Frequency of Social Gatherings with Friends and Family: Once a week Attends Christianity Services: Patient declined Active Member of Clubs [...] by mouth in the morning and 1 tablet(5 mg) in the evening and 1 tablet (5 mg) before bedtime. Do all this for 10 days. Scapular dyskinesis - meloxicam (Mobic) 15 MG tablet; Take 1 tablet (15 mg) by mouth Daily - cyclobenzaprine (Flexeril) 5 MG tablet; Take 1 tablet (5 mg) by mouth in the morning and 1 tablet(5 mg) in the evening and 1 tablet (5 mg) before bedtime. Do all this for 10 days. Updated Medications: I have reviewed and reconciled the history and medication list with the patient today. Current Outpatient Medications: byyrtetfox-viyqqnnxceqfw-muhazjwe 50-325-40 MG tablet, Take 1 tablet by mouth every 6 (six) hours if needed for headaches, Disp: 20 tablet, Rfl: 0 desogestrel-ethinyl estradiol (Apri) 0.15-30 MG-MCG tablet, Take 1 tablet by mouth Daily, Disp: 21 tablet, Rfl: 12 metoprolol succinate XL (Toprol-XL) 25 MG 24 hr tablet, Take 1 tablet by mouth daily, Disp: 90 tablet, Rfl: 1 documented in this encounterAudrain Medical [id number] History of Present illness Narrative* Virgen Steen, GODFREY - 08/18/2024 11:00 AM EDT Reason for Appointment: Patient ID: Juhi Cope is a 29 y.o. female who presents for Well Women Visit Patient presents today for Annual Exam. MEDICATIONS Current Outpatient Medications Medication Instructions nplfkczprg-kbrnfaoyexjpk-hipneoay 50-325-40 MG tablet 1 tablet, Oral, Every [...] Breast cancer Maternal Grandmother Hypertension Maternal Grandfather [place] Cancer Maternal Grandfather [place] Colon cancer Paternal Grandfather SURGICAL HISTORY Past Surgical History: Procedure Laterality Date APPENDECTOMY 05/2016 at [facility] 12/2022 retained placenta DISTAL [...] nursing note reviewed. Exam conducted with a director sanitation bureau present. Vitals: Estimated body mass index is [...] of: Zenobia Gutierrez PA-C documented in this encounterAudrain Medical CenterHisokqdnka88-19-0022 History of Present illness Narrative* Christine Ravi LPN - 07/22/2024 9:50 AM EDT Reason for Appointment: Patient ID: Juhi Cope is a 29 y.o. female who presents for Dysmenorrhea Patient presents today for Acute Visit. MEDICATIONS Current Outpatient Medications Medication Instructions niyibxfwkl-glzqqgkrbrnyh-agifjuzk 50-325-40 MG tablet 1 tablet, Oral, Every [...] migraine without aura and with status migrainosus ([facility]CC) 03/29/2023 Migraines ([facility]CC) 03/29/2023 Chronic pelvic pain in female 03/29/2023 Pain in female genitalia on intercourse 03/29/2023 Pain on swallowing 03/29/2023 Panic disorder ([facility]/HCC) 03/29/2023 Patellofemoral disorders, left knee 03/29/2023 Patellofemoral disorders, right knee 03/29/2023 Posterior calcaneal exostosis 03/29/2023 Scapular dyskinesis 03/29/2023 Scoliosis 03/29/2023 Seasonal allergic rhinitis due to pollen 03/29/2023 Tachycardia, paroxysmal ([facility]) 03/29/2023 Tension headache 03/29/2023 Vitamin B12 [...] Headache History of menstrual cramps severe Hypertension ([facility]CC) x1 Varicella zoster unsure Visual impairment w/ [...] Laterality Date APPENDECTOMY 05/2016 at [facility] 12/2022 retained placenta DISTAL [...] nursing note reviewed. Exam conducted with a director sanitation bureau present. Vitals: Estimated body mass index is [...] control - rx for apri faxed to pharmacy.Pt advised to skip sugar pills. Pt to return for annual. Pt given ultrasound to have obtained. Documented by Christine Ravi LPN on behalf of: Nathan Pop DO documented in this encounterAudrain Medical [id number] Telephone encounter Note* Telephone Encounter - Candis Garces - 04/29/2024 8:23 AM EDT Received message from admin Anna Webb to cancel surgery and all appts as pt had services elsewhere [facility]06-04-2024 Miscellaneous Notes* Telephone Encounter - Candis Garces - 04/29/2024 8:23 AM EDT Received message from admin Anna Webb to cancel surgery and all appts as pt had services elsewhere documented in this encounterMercy Health [facility]05-[facility] Telephone encounter Note * Telephone Encounter - Anna De Leon - 04/25/2024 1:10 PM EDT Pt got in sooner for surgery with 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 Please cancel surgery and all pre and post op appts. [facility]05-31-2024 Miscellaneous Notes* Telephone Encounter - Anna De Leon - 04/25/2024 1:10 PM EDT Pt got in sooner for surgery with 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 Please cancel surgery and all pre and post op appts. documented in this encounterMercy Health [facility]02-[facility] History of Present illness Narrative* Nathan Pop DO - 01/10/2024 10:30 AM EST Reason for Appointment: Patient ID: Juhi Cope is a 28 y.o. female who [...] Dysmenorrhea 03/29/2023 Endometriosis 03/29/2023 Gastroparesis 03/29/2023 Hypertension ([facility]/HCC) 03/29/2023 Intractable migraine without aura and with status migrainosus ([facility]CC) 03/29/2023 Migraines ([facility]/HCC) 03/29/2023 Chronic pelvic pain in female 03/29/2023 Pain in female genitalia on intercourse 03/29/2023 Pain on swallowing 03/29/2023 Panic disorder ([facility]CC) 03/29/2023 Patellofemoral disorders, left knee 03/29/2023 Patellofemoral disorders, right knee 03/29/2023 Posterior calcaneal exostosis 03/29/2023 Scapular dyskinesis 03/29/2023 Scoliosis 03/29/2023 Seasonal allergic rhinitis due to pollen 03/29/2023 Tachycardia, paroxysmal ([facility]) 03/29/2023 Tension headache 03/29/2023 Vitamin B12 [...] Laterality Date APPENDECTOMY 05/2016 at [facility] 12/2022 retained placenta DISTAL [...] nursing note reviewed. Exam conducted with a director sanitation bureau present. Vitals: Estimated body mass index is [...] of: Nathan Pop DO documented in this encounterAudrain Medical CenterRlwzprytvs54-75-5050 Miscellaneous Notes* Telephone Encounter - Pippa Simon RN - 01/03/2024 4:29 PM EST Refill(s) request: Requested Prescriptions Pending Prescriptions Disp [...] mg tablet Class: Normal Route: ORAL Order: [id number] E-Prescribing Status: Receipt confirmed by pharmacy (05/17/2023 [...] endometriosis seen at the time of surgery andthe severity of pain symptoms or even implications for fertility. The diagnosis can only be confirmed by surgery with tissue sample examined by pathology. Educated that endometriosis is often a chronic condition that may recur and often requires a sand blaster treatment plan. Once endometriosis is identified, there [...] the risk of recurrent pain approaches 50% just2 - 4 years after surgery. Repetitive surgeries tend to be less successful than the initial surgeryfor the treatment of pain. Finally, we also discussed that even when endometriosis is identified inwomen with pelvic pain, it is often not [...] Simon RN January 03, 2024 4:29 PM * Telephone Encounter - Alena Tracy - 01/02/2024 3:52 PM EST Patient: Juhi Cope : 1995 Provider: Charlene Rodriguez DO Caller Phone #: [phone] (home) [phone] (cell) Reason for call: b/c refill Message routed to nurse triage Date of next visit: MEGAN: 12/10/2023 documented in this encounterMercy [facility]01-15-2024 NoteHNO ID: [id number] Author: CHARLENE RODRIGUEZ DO Service: ? Author Type: Physician Type: Progress Notes Filed: 12/10/2023 15:14 Note Text: [facility] SECTION FOR MINIMALLY INVASIVE GYNECOLOGIC SURGERY OUTPATIENT VISIT DATE 12/10/2023 OUTPATIENT VISIT TYPE Follow-up visit PRIMARY CARE PHYSICIAN: Denny Rodríguez [address] [place] [address] REFERRING PHYSICIAN: Self CHIEF COMPLAINT: No chief complaint on file. 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 Where to find more information [employer]: www.heart.org Contact a health care [...] provider. Document Revised: 07/27/2022 Document Reviewed: 07/27/2022 [employer] Patient Education 2022 [employer]. 09/12/2023 18:18:13 Hypertension, Adult, Xtdw-bh-Epav Hypertension, Adult Hypertension is another name for high blood pressure. High blood pressure forces your heart to workharder to pump blood. This can cause problems [...] at each meal with low-fat (lean) proteins. Low- fat proteins include fish, chicken without skin, eggs, [...] doctor. Keep all follow-up visits. Medicines Take dbzr-mhn-hpfpvmg and prescription medicines only as told by your doctor. Follow directions carefully. Do not skip doses of blood pressure medicine. The medicine does not work as well if you skip doses.Skipping doses also puts you at risk for [...] provider. Document Revised: 08/31/2022 Document Reviewed: 08/31/2022 [employer] Patient Education 2022 [employer]. 09/12/2023 18:18:13 General Headache Without Cause, Rcpq-dm-Fdki General Headache Without Cause A headache is pain or discomfort you feel around the head or neck area. There are many causes and types of headaches. In some cases, the cause may not be found. Follow these instructions at home: Watch your condition for any changes. Let your doctor know about them. Take these steps to help with your condition: Managing pain Take rwtn-auy-sdxzzuy and prescription medicines only as told by [...] right away. Call your local emergency services ([address] [facility] [place] Do not wait to see if [...] throw up, you have trouble seeing, you loseyour balance, or you have a seizure. This information is not intended to replace advice given to you by your health care provider. Make sure you discuss any questions you have with your health care provider. Document Revised: 04/12/2022 Document Reviewed: 04/12/2022 [employer] Patient Education 2022 [employer]. Follow Up Care 09/12/2023 17:21:57 With:DENNY RODRÍGUEZ Address: [address] [place] [address]- Business (1) When:09/15/2023 18:03:37 Comments:Follow-up with your primary care provider in 3 to 5 days. If symptoms worsen, do not improve, or new symptoms arise please report back to emergency department for further evaluation. [facility]10-18-2023 Evaluation + Plan noteExtracted from: Title:ED NoteAuthor:Eric CLAYTON, Nikita EscamillaDate:09/12/23 Elevated blood pressure read ing (R03.0: Elevated [...] date 09/12/23 18:02:00 EDT, 09/12/23 18:02:00 EDT [facility]10-16-2023 Instructions* Patient Instructions* Jihan Downs APRN.TRUSS MAKER - 09/10/2023 9:52 AM EDT Plan: Trial baclofen suppositories - can switch to pill vaginally if suppositories are not affordable Consider Pelvic floor physical therapy - can find local provider [email or web address] Consider going back to see Dr Kuldip Downs APRN.ANA LAURA documented in this encounterMer[facility]10-[facility]-2023 NoteHNO ID: [id number] Author: Charlene Rodriguez DO Service: ? Author Type: Physician Type: Progress Notes Filed: 08/30/2023 11:15 AM Note Text: Tramadol rx sent to pharmacy.[facility]10-05-2023 History of Present illness Narrative* Charlene Rodriguez DO - 08/30/2023 11:13 AM EDT Tramadol rx sent to pharmacy. documented in this encounterMercy Health [facility]10-05-2023 Miscellaneous Notes* Telephone Encounter - Chelsie Dueñas RN - 08/30/2023 10:50 AM EDT Last office visit: 08/24/2023 Assessment and Plan No diagnosis found. Trial baclofen suppositories Will send list of PTs Consider going back to [facility] SIGNATURE: Jihan Downs APRN.CNP Office visit with Dr. Rodriguez [...] Rodriguez DO documented in this encounterMercy Health [facility]09-29-2023 NoteHNO ID: [id number] Author: Jihan Downs APRN.ANA LAURA Service: ? Author Type: Nurse Practitioner Type: Progress Notes Filed: 09/10/2023 9:53 AM Note Text: [facility] Department of Benign Gynecology [facility] PATIENT NAME: Juhi Cope DATE: 08/24/2023 Patient Name and verified: Yes Patient Location: [place] This Virtual Visit was completed using My Chart Zoom platform. I have communicated my name and active licensure. The patient's identity and physical location were verified at the time of this visit. Either the patient or their legal representative phlebotomy services has been informed of the risks and benefits of -- and alternatives to -- treatment through a remote evaluation and consents to proceed with the evaluation remotely. Chief Complaint CC/REASON FOR VIRTUAL VISIT: Pelvic pain History of Present Illness: Juhi is a 28 year old who presents [...] appointment yet. 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 [facility] Department of Benign Gyne[facility] PATIENT NAME: Juhi Cope DATE: 08/24/2023 Patient Name and verified: Yes Patient Location: [place] This Virtual Visit was completed using My Chart Zoom platform. I have communicated my name and active licensure. The patient's identity and physical location wereverified at the time of this visit. Either the patient or their legal representative phlebotomy services has been informed of the risks and benefits of -- and alternatives to -- treatment through a remote evaluation andconsents to proceed with the evaluation remotely. Chief Complaint CC/REASON FOR VIRTUAL VISIT: Pelvic pain History of Present Illness: Juhi is a 28 year old who presents [...] appointment yet. 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 History Comments: Sexual Activity: Never; No partner [...] going back to see Dr Rodriguez SIGNATURE: Jihan Downs APRN.CNP Medical Decision Making: Problems: Low: Stable chronic illness Risk: Moderate: Drug management Medical Decision Making Level: 3 - Low documented in this encounterMercy [facility]09-[facility]-2023 Miscellaneous Notes* Telephone Encounter - Marilee Valdez APRN.CNP - 08/17/2023 3:17 PM EDT Recommend sooner appt with Kuldip if available vs appt with Jihan Downs CNP with CPP team in addition [...] Tracy - 08/16/2023 11:19 AM EDT Patient: Juhi Cope : 1995 Provider: Charlene Rodriguez DO Caller Phone #: [phone] (home) [phone] (cell) Reason for call: pt calling regarding message., still in pain. Please call [phone] Message routed to nurse triage Date of next visit: documented in this encounterMercy Health [facility]09-07-2023 Miscellaneous Notes* Telephone Encounter - Candis Suárez RN - 08/02/2023 11:29 AM EDT PA for orilissa completed via Cover MyMeds. Juhi Cope (Morales: [id number]) - [id number] Orilissa 150MG tablets Status: Sent To Plan Created: August 02, 2023 Sent: August 02, 2023 Candis Suárez RN * Telephone Encounter - Jenifer Lynn - 08/02/2023 10:03 AM EDT Pt [...] advise. Thanks. documented in this encounterMercy Health [facility]08-21-2023 NoteHNO ID: [id number] Author: Charlene Rodriguez, DO Service: ? Author Type: Physician Type: Progress Notes Filed: 07/16/2023 12:41 PM Note Text: [facility] SECTION FOR MINIMALLY INVASIVE GYNECOLOGIC SURGERY OUTPATIENT VISIT DATE 07/16/2023 OUTPATIENT VISIT TYPE Follow-up visit PRIMARY CARE PHYSICIAN: Denny Rodríguez [address] [place] [address] REFERRING PHYSICIAN: Denny Rodríguez CHIEF COMPLAINT: No chief complaint on file. 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 History Comments: Sexual Activity: Never; No partner [...] 1115 BP: (more content not included)...[facility]07-18-2023 History of Present illness Narrative* Boo Singh, DIALLO - 06/12/2023 1:30 PM EDT Radiology Service [...] Intact SIGNATURE: Boo Singh RN PATIENT NAME: Juhi Cope DATE: June 12, 2023 TIME: 1:43 PM * Rosio Malcolm RT(R) - 06/12/2023 1:30 PM EDT Radiology Service Progress Note PATIENT NAME: Juhi Cope DATE OF SERVICE: June 12, 2023 [...] 4:32 PM documented in this encounterMer[facility]07-18-2023 NoteHNO ID: [id number] Author: Rosio Malcolm RT(Bryant) Service: ? Author Type: Logging Supervisor Type: Progress Notes Filed: 06/12/2023 4:32 PM Note Text: Radiology Service Progress Note PATIENT NAME: Juhi Cope DATE OF SERVICE: June 12, 2023 [...] BY: RT Claudia(R) June 12, 2023 4:32 [facility]07-18-2023 NoteHNO ID: [id number] Author: Boo Singh RN Service: Nursing Author [...] Intact SIGNATURE: Boo Singh RN PATIENT NAME: Juhi Cope DATE: June 12, 2023 TIME: 1:43 [facility]06-22-2023 NoteHNO ID: [id number] Author: Charlene Rodriguez, DO Service: ? Author Type: Physician Type: Progress Notes Filed: 05/21/2023 10:15 AM Note Text: [facility] SECTION FOR MINIMALLY INVASIVE GYNECOLOGIC SURGERY OUTPATIENT VISIT DATE 05/17/2023 OUTPATIENT VISIT TYPE FUV - zoom virtual visit CHIEF COMPLAINT: Endometriosis, pelvic pain HISTORY OF PRESENT ILLNESS: Juhi Cope is a pleasant 28 year old female who presents for follow up visit. 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 [facility] SECTION FOR MINIMALLY INVASIVE GYNECOLOGIC SURGERY OUTPATIENT VISIT DATE 05/17/2023 OUTPATIENT VISIT TYPE FUV - zoom virtual visit CHIEF COMPLAINT: Endometriosis, pelvic pain HISTORY OF PRESENT ILLNESS: Juhi Cope is a pleasant 28 year old female who presents for follow up visit. 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 Biggest complaint is cramping. Has had 3 periods of bleeding recently - 04/22/2023 LMP, last a few days, 05/04-05/10 bleeding again 05/11/2023 started again today. Takes aygestin 5mg daily. 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 Encourage to spanish moss picker the flexeril as this will help with the cramping. Reviewed red flag bleeding symptoms that require trip to ER (soaking greater than one overnight padper hour, chest pain, shortness of breath, fatigue, palpitations).. Advised keep appt. Gives verbal understanding. Appointments for Next 60 Days Date Time Provider Location Dept Phone 05/17/2023 1:00 PM [facility] [phone] Candis Suárez, RN * Telephone Encounter - Tawana Nair [facility] - 05/11/2023 1:19 PM EDT Reason for call: other - Vaginal bleeding Provider name: Dr Rodriguez Additional comments: patient having more vaginal bleeding and concerned she is getting worse. Recommendation: routed to nurse triage pool documented in this encounterMercy [facility]06-06-2023 Instructions* Patient Instructions* Jihan Downs APRN.CNP - 05/01/2023 11:47 AM EDT Plan Pelvic floor physical therapy - or can go locally [facility] [employer] Trial flexeril at bedtime Can consider Baclofen suppositories - let me know if you want to trial after you go to PT Continue Norethindrone - can take up to 3 months for it to stop periods, take at same time every day Relaxation techniques Jihan Downs APRN.TRUSS MAKER Relaxation techniques for pain flares: Heating pads [...] society (pelvicpain.org) documented in this encounterMercy Health [facility]06-06-2023 History of Present illness Narrative* Jihan Downs APRN.ANA LAURA - 05/01/2023 10:30 AM EDT Juhi Cope is a 28 year old female who presents for problem visit for pain HPI: Pain is week before period and week of period. Worse on her period for every day she's bleeding Urinary - No symptoms GI - Always constipated. No meds [place] - painful always Pain is on left side and goes to the back. Whole lower back. Sometimes on right but not very often. No concerns No falls, car accidents, scoliosis. No trauma history Endo. 2 lap - 2020 - pain improved after surgery In the past Aygestin had helped No Pelvic floor physical therapy. Dr Rodriguze recommend but hasn't been able to go. Tore with delivery but doesn't think it was bad. Here with a friend and her baby. 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 History Comments: Sexual Activity: Never; No partner [...] physical therapy - or can go locally pelvicBandAppab.[place] [employer] Trial flexeril at bedtime Can consider Baclofen suppositories Continue Norethindrone - can take up to 3 months for it to stop periods, take at same time every day Relaxation techniques Jihan Downs APRN.CNP Medical Decision Making: Problems: Moderate: New problem with uncertain prognosis Data: Unique source(s) for external note(s) reviewed: 1 Unique test result(s) reviewed: 1 Risk: Moderate: Drug management Medical Decision Making Level: 4 - Moderate documented in this encounterMercy Health [facility]06-06-2023 NoteHNO ID: [id number] Author: Jihan Downs APRN.CNP Service: ? Author Type: Nurse Practitioner Type: Progress Notes Filed: 05/09/2023 11:46 AM Note Text: Juhi Cope is a 28 year old female who presents for problem visit for pain HPI: Pain is week before period and week of period. Worse on her period for every day she's bleeding Urinary - No symptoms GI - Always constipated. 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 History Comments: Sexual Activity: Never; No partner [...] physical therapy - or can go locally pelvicKaroon Gas [place] [employer] Trial flexeril at bedtime Can consider Baclofen suppositories Continue Norethindrone - can take up to 3 months for it to stop periods, take at same time every day Relaxation techniques Jihan Downs APRN.CNP Medical Decision Making: Problems: Moderate: New problem with uncertain prognosis Data: Unique source(s) for external note(s) reviewed: 1 Unique test result(s) reviewed: 1 Risk: Moderate: Drug management Medical Decision Making Level: 4 - [facility]erateC[facility]05-31-2023 Miscellaneous Notes* Telephone Encounter - Marilee Valdez APRN.CNP - 04/25/2023 3:48 PM EDT She has 3 month follow up scheduled with Dr. Rodriguez in June. Recommend VV with Jihan Downs CNP to discuss pain management strategies. [...] Tylenol, or Ibuprofen LV 04/11/23 IMPRESSION: Ms. Cantley is a 28 year old female who presents today with endometriosis Endometriosis: reviewed history, etiology, diagnosis and management options. Patient did well on norethindrone. Rx'd norethindrone 5 mg daily. Rtc in 3 months. Lucila Foss RN documented in this encounterMercy Health [facility]03-08-2023 Hospital Discharge instructions Patient Education 01/31/2023 [...] told by your health care provider. Take ycph-gdb-jhltvpz and prescription medicines only as told by [...] 01/03/2007 Document Revised: 10/25/2018 Document Reviewed: 01/25/2018 [employer] Patient Education 2020 [employer]. Follow Up Care 01/31/2023 13:43:01 With:Denny Meza Address:Unknown When:02/03/2023 18:59:31 Comments:Follow-up for evaluation of hypertension in context of known preeclampsia in the period With:DENNY RODRÍGUEZ [facility] [place] [address]- Business (1) When:Within 3 Day(s) [facility]03-08-2023 Evaluation + Plan noteExtracted from: Title:ED NoteAuthor:Mayur Mabry PA-C CDate:01/31/23 Flank pain (R10.9: Unspecifi ed abdominal pain) Headache (R51.9: Headache, unspecified) Orders: CTA Chest Hepatic Function Panel [facility]02-04-2023 Hospital Discharge instructions Patient Education 12/30/2022 13:59:51 [facility] [employer]OM[employer] - Post D&C, Hysteroscopy, LEEP or Essure/Laparoscopy [...] Instructions - FT (Custom) (Custom) 12/30/2022 13:55:16 [facility] [employer] [facility] - Post D&C, Hysteroscopy, LEEP or Essure/Laparoscopy [...] ANY PROBLEMS Follow Up Care 12/30/2022 08:14:12 With:Denny Meza Address: [address], [place] [address]- Business (1) When: Unknown Comments:follow up in 1-2 weeks With:DENNY RODRÍGUEZ Address: [address] [place] [address]- Business (1) When:01/02/2023 09:21:18 [facility]02-04-2023 Evaluation + Plan noteExtracted from: Title:ANES Post-operative NoteAuthor:Kenneth Agustin MDDate:12/30/22 Plan Transfer/Discharge: Transfer/Discharge Discharge when meets criteria ( From PACU to Ambulatory Surgery Unit, and To home ). Extracted from:Title:Gynecology Visit *Author:Nathan POP DO RDate:12/30/22 Impression and Plan retained products of conception, s/p 4wks-ultrasound reviewed, discussed options with patient, conservative tx vs surgical tx, consent obtained, mmc reviewed, procedure reviewed, Extracted from:Title:ANES Pre-operative NoteAuthor:Kenneth Agustin MDDate: 12/30/22 Plan [place] [employer] Anesthesiologists (ASA) physical status classification: Class II, E. Anesthetic Preoperative Plan: Anesthesia General. Extracted from:Title:ED NoteAuthor:Lara Murphy, Edin HDate:12/30/22 1. Retained products of conc eption with hemorrhage (O72.2: Delayed and secondary hemorrhage) Orders: ABO/Rh ABO/Rh History Check Antibody Screen Automated Diff Basic Metabolic Panel Blood Bank ID# CBC w/ Auto Diff eGFR Extra SST Tube PT & PTT Saline Lock Insert UA With Cult Reflex US Pelvis Non-OB Complete [facility]01-10-2023 History of Present illness Narrative* Tory Pimentel - 12/05/2022 1:35 PM EST Vital signs BP 127/87 Weight 149.2lb Pulse 106 Temp 96.7 * Paolo Diallo DO - 12/05/2022 1:35 PM EST Images from the original note were not included. Juhi Cope 12/05/2022 27 y.o. Chief Complaint Patient [...] This patient was [facility] by the resident. I reviewed and agree with the care provided by the resident during or immediately following the visit including the patient's medical history, the resident's finding in the physical exam, patient's diagnosis and treatment plan. documented in this [facility]01-07-2023 NoteDepartment of Obstetrics and Gynecology Delivery Discharge Summary Admission on 11/28/2022 12:24 AM Hospital course: Juhi Cope at 35w1d admitted as a transfer from [facility] for [facility]. She was started on Magnesium there and [...] Information for the patient's : Francie Cope [[id number]] female 2425 g (5 lb 5.5 oz) Apgars: Information for the patient's : Francie Cope [[id number]] : : Girl Blood Type/Rh: O Antibody [...] Medications These medications were sent to [facility] [address] [place] [address] Hours: Sunday to Sunday 10 am to 6 pm docusate sodium 100 MG capsule ibuprofen 600 MG tablet NIFEdipine XL 30 MG 24 hr tablet Activity: Activity as tolerated Diet: Regular diet Follow-up Appointments: - visit - Blood pressure check If a patient meets criteria for hypertension, make sure the following are done prior to discharge: [] Order a blood pressure kit through [facility] (or the patient's own pharmacy on the weekend) [] Order the blood pressure log through [employer] [x] Place an office visit or telephone [...] any of these occur.[facility] [id number] History of Present illness Narrative* Anna Booth [...] included. VAGINAL DELIVERY POST DAY # 2 Juhi Stephensifeoma, 27 y.o. This patient was seen [...] (homozygous), FVL+Prothrombin (heterozygous), Antithrombin III, APLS Assessment/Plan: Juhi Cope is PPD # 2 s/p Care [...] NOTE - VAGINAL DELIVERY POST DAY #1 Juhi Cope, 27 y.o. This patient was seen [...] (homozygous), FVL+Prothrombin (heterozygous), Antithrombin III, APLS Assessment/Plan: Juhi Cope is PPD #1 s/p Care - [...] with more than 50% of the total lxoq-kc-gmkj time of the visit in counseling/coordination of [...] be monitored and followed by the diet site technician. CRISS Oshea * Alejandra Arcos RN [...] Note Date: 11/28/2022 Time: 2:14 AM Subjective: Juhi Cope is a 27 y.o. female at [...] and reassuring. CCM. Cx:-3 FHT: Cat 1 [place]:q3-4 min A/P: 1. IOL-PreEwSF. FHT 130 baseline, with moderate variability, Accelerations present Yes, and rare late deceleration . Cervical exam unchanged. Cytotec x4 placed at this time. Patient intermittently feeling contractions. BP mild range. Cx: 1--3 FHP: defer FHT: Cat I [place]: a3-4min A/P: 1. IOL-PreEwSF: FHT Category I, [...] Cx: unchanged FHP: defer FHT: Cat I [place]: q4min A/P: 1. IOL-PreEwSF: FHT Category I, [...] 11/29/2022 6:17 AM Cx:1-2/60/-3 FHT: Cat I [place]:q4-5mins A/P: 1. IOL-PreEwSF: Cat I FHT with [...] per protocol. CCM. Cx:defer FHT: Cat I [place]:q4-6mins A/P: 1. IOL-PreEwSF: Cat I FHT with baseline 120, moderate variability, spontaneous accelerations, and no decelerations. BP normotensive to mild range since last note time. Pitocin @ 2 cc/hr, continue to titrate per protocol. Magnesium sulfate running for seizure prophylaxis, UOP 400 ml over past 4hours. CCM. Cx:defer FHT: Cat I [place]:q4-5mins A/P: 1. IOL-PreEwSF: Cat I FHT with baseline 135, moderate variability, spontaneous accelerations, and no decelerations. BP normotensive to mild range since last note time. Pitocin @ 6 cc/hr, continue to titrate per protocol. Magnesium sulfate running for seizure prophylaxis, UOP 600 ml over past 4hours. Will plan for AROM soon. CCM. Cx:defer FHT: Cat I [place]:irritability A/P: 1. IOL-PreEwSF: Pit @ 8 mu/min. Patient resting comfortably and only irritability tracing on toco. BP most recently mild range. On magnesium sulfate for seizure prophylaxis. UOP adequate. Continue magnesium and continue to titrate pitocin per protocol. Plan for AROM once patient rudi more regularly. Electronically signed by Cortney Velasquez DO 11/29/2022 4:21 PM Cx:/-3 FHT: Cat 1 [place]:Not tracing A/P: 1. IOL-PreEwSF. FHT 135 baseline, with moderate variability, Accelerations present Yes, and nodecelerations seen . AROM at this time for moderate amount blood tinged fluid. Pitocin at 8cc/hr. Maternal BP mild range. On Magnesium for Seizure prophylaxis. Patient with adequate urinary output. CCM. Cx: defer FHP: defer FHT: Cat II [place]: not tracing well A/P: 1. IOL-PreEwSF: FHT [...] per RN FHP: defer FHT: Cat II [place]: q4min A/P: 1. IOL-PreEwSF: FHT Category II [...] delivery note for details documented in this [facility]01-07-2023 Hospital course Narrative* César Tran DO - 12/02/2022 12:32 PM EST Images from the original note were not included. Department of Obstetrics and Gynecology Delivery Discharge Summary Admission on 11/28/2022 12:24 AM Hospital course: Juhi Cope at 35w1d admitted as a transfer from [facility] for [facility]. She was startedon Magnesium there and transported [...] Information for the patient's : Francie Cope [[id number]] female 2425 g (5 lb 5.5 oz) Apgars: Information for the patient's : Francie Cope [[id number]] : Infant: Girl Blood Type/Rh: O Antibody [...] Medications These medications were sent to [facility] [address] [place] [address] Hours: Sunday to Sunday 10 am to 6 pm docusate sodium 100 MG capsule ibuprofen 600 MG tablet NIFEdipine XL 30 MG 24 hr tablet Activity: Activity as tolerated Diet: Regular diet Follow-up Appointments: - visit - Blood pressure check If a patient meets criteria for hypertension, make sure the following are done prior to discharge: [] Order a blood pressure kit through [facility] (or the patient's own pharmacy on the weekend) [] Order the blood pressure log through [facility] [x] Place an office visit or telephone [...] any of these occur. documented in this [facility]01-06-2023 Note* Care Coordination - Christine [...] home. Denies any concerns at this time. [facility] [id number] Note* Care Coordination - Christine Michelle RN [...] home. Denies any concerns at this time. [facility] [id number] Miscellaneous Notes* Care Coordination - Christine Michelle [...] indicated for this pt. Due to: in [facility] Hospital breast pump, supplies kit, swabs [...] pump Told patient to check with in [facility] for smaller flange sizes * L&D Delivery Note - Irina Kramer DO - 11/30/2022 4:04 AM EST Images from the original note were not included. Vaginal Delivery Note Department of Obstetrics and Gynecology Patient: Juhi Cope : 1995 Date of delivery: 11/30/2022 Pre-operative Diagnosis: Juhi Sidhu at 35w1d 1. <37 weeks 2. 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 Bowden; Dr. Kramer Information: Information for the patient's : Francie Cope [[id number]] Information for the patient's : Francie Cope [[id number]] Description: normal Meconium Noted: No Anesthesia: epidural anesthesia Complications: None Application and Delivery: Juhi Sidhu at 35w1d admitted for IOL-PreEwSF. Her [...] patient will continue to make cervical change. Coltilde Mg RN documented in this [facility]01-06-2023 Obstetrics Note* Note - Ligia Bridges RN - 12/01/2022 9:00 AM EST 22.5mm flanges given to patient. Encouraged her to call for observation of pump session and smallerflanges. Martha in NICU to assist with personal pump. [facility] [id number] Hospital Discharge instructions* Discharge Instructions* Carol Bowden [...] as 8 weeks after delivery. Bleeding may spanish moss picker and then decrease again around 7-10 [...] avoid constipation you may take a mild xqtt-gpf-hnntsri stool softener (such as colace) as recommended [...] positive or a Person Under Investigation (PUI) Kervtf-nv-niael transmission of COVID-19 during is unlikely, but after a baby is susceptible to zjcvtu-ag-ehsvcn spread. After your baby is born, your [...] clean your hands with an alcohol-based hand multifold operator that contains at least 60% alcohol. Clean your hands often Wash your hands often with soap and water for at least 20 seconds, especially after blowing your nose, coughing, or sneezing; going to the bathroom; and before eating or preparing food. If soap and water are not readily available, use an alcohol-based hand multifold operator with at least 60% alcohol, covering all [...] healthcare provider to call the local or [facility] health department. Persons who are placed [...] isolation precautions should be made on a eqrj-ew-xahg basis, in consultation with healthcare providers and [facility] health departments. Information on COVID-19 for [...] respiratory tract signs and symptoms. Ways to [place] with Anxiety & Stress It is normal [...] an illness that was first found in [facility], in October 2019. It has since [...] seen in people before. This virus spreads vconyz-yy-qwvgrc through droplets from coughing and sneezing. It [...] water aren't available, use an alcohol-based hand multifold operator. Call 911 anytime you think you may [...] of: February 25, 2020 Content Version: 12.4 [employer]. Care instructions adapted under license by your healthcare professional. If you have questions about a medical condition or this instruction, always ask your healthcare professional. [employer] disclaims any warranty or liability for your use of this information. General Recommendations for Routine Cleaning and Disinfection of Households Community members can practice routine cleaning of frequently touched surfaces (for example: tables, doorknobs, light switches, handles, desks, toilets, faucets, sinks) with household manufacturing quality manager and EPA-registered disinfectants that are appropriate for [...] appropriate. These supplies include tissues, paper towels, manufacturing quality manager and EPA-registered disinfectants (see list link at [...] be used for other purposes. Consult the plateman's instructions for cleaning and disinfection products used. [...] used if appropriate for the surface. Follow plateman's instructions for application and proper ventilation. Check [...] for harder to kill viruses. Follow the plateman's instructions for all cleaning and disinfection products (e.g., concentration, application method and contact time, etc.). Soft (porous) surfaces such as carpeted floor, rugs, and drapes Remove visible contamination if present and clean with appropriate manufacturing quality manager indicated for use on these surfaces. After cleaning: Launder items as appropriate in accordance with the plateman's instructions. If possible, launder items using the [...] items as appropriate in accordance with the plateman's instructions. If possible, launder items using the warmest appropriate water setting for the items and dry items completely. Dirty laundry from an ill person can be washed with other people's items. Clean and disinfect clothes hampers according to guidance above for surfaces. If possible, considerplacing a cellophane bag machine operator that is either disposable (can be thrown away) or can be laundered. CDC has a list of EPA approved cleaning products on their website - https://www.cdc.gov/coronavirus/ 2019-ncov/community/home/cleaning-disinfection.html https://www.[employer].[place] [employer]/Lvrqm-Abgioazndka-Rhkkqopx-Products-List.pdf Grocery Stores with delivery and spanish moss picker services: [facility]: Free spanish moss picker at locations Delivery is $12.95 a month Website - [employer] [place]: [employer] Marker $2.95 (1st order is free) Delivery is $14.95 Website - [employer] Mar[employer] [place]: diamond finishing supervisor is free Delivery is $5.95 Website - [employer]: diamond finishing supervisor is $4.95 Delivery is $9.95 Website Ton[employer]: diamond finishing supervisor is $4.95 Delivery is $9.95 Website - [employer]: Can be ordered for delivery and spanish moss picker with [employer] Website - [employer]: Free deliver for first 3 orders of $35 or more Website - aldiJaypore [employer] Will deliver from [employer]S, [employer], [employer], and [employer]. Annual membership is $99 Monthly membership is $14 * Attachments The following attachments cannot be sent through Care Everywhere. * Preeclampsia Discharge Instructions ([place]) documented in this [facility]01-05-2023 Obstetrics Note* Note - Sheila Harrell RN - 11/30/2022 10:37 AM EST Swabs given to patient and educated how to use and to bring to infant CRISTIAN [facility] [id number] Obstetrics Note* Note - Sheila Harrell RN - 11/30/2022 10:30 AM EST Breast pump use indicated for this pt. Due to: [facility] [facility], supplies kit, swabs [...] Told patient to check with LC in [facility] for smaller flange sizes [facility] [id number] NotePatient: Juhi Cope Procedure Summary Date: 11/29/22 Room / Location: Anesthesia Start: 1814 Anesthesia Stop: 11/30/22247 Procedure: Labor Analgesia Diagnosis: Scheduled Providers: Responsible Provider: Denny Fung MD Anesthesia Type: epidural ASA Status: [...] discharged once all PACU criteria has been met.[facility]01[facility] NotePatient: Juhi Cope Procedure Summary Date: 11/29/22 Room / Location: Anesthesia Start: 1814 Anesthesia Stop: 11/30/22 0248 Procedure: Labor Analgesia Diagnosis: Scheduled Providers: Responsible Provider: Denny Fung MD Anesthesia Type: epidural ASA Status: [...] Allowed opportunity for questions and acknowledgement of understanding.[facility]01-05-[facility]23 Labor and delivery summary note* L&D Delivery Note - Irina Kramer DO - 11/30/2022 4:04 AM EST Images from the original note were not included. Vaginal Delivery Note Department of Obstetrics and Gynecology Patient: Juhi Cope : 1995 Date of delivery: 11/30/2022 Pre-operative Diagnosis: Juhi Sidhu at 35w1d 1. <37 weeks 2. 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 Bowden; Dr. Kramer Infant Information: Information for the patient's : Francie Cope [[id number]] Information for the patient's : Francie Cope [[id number]] Description: normal Meconium Noted: No Anesthesia: epidural anesthesia Complications: None Application and Delivery: Juhi Sidhu at 35w1d admitted for IOL-PreEwSF. Her [...] surgery as described in the resident note. [facility] [id number] NoteEpidural Block Time Out: 11/29/2022 6:17 PM Patient location during procedure: OB Start time: 11/29/2022 6:18 PM End time: 11/29/2022 6:45 PM Reason for block: labor analgesia Staffing Performed: AMBULANCE OPERATIONS SUPERVISOR Resident/AMBULANCE OPERATIONS SUPERVISOR: Jimmie Kaur APRN - AMBULANCE OPERATIONS SUPERVISOR Preanesthetic Checklist Completed: patient identified, IV checked, [...] patient tolerated procedure well with no immediate complicationsV[facility] Plan of care note* Care Plan - Clotilde Mg RN - 11/29/2022 7:45 AM EST The patient will continue to make cervical change. Clotilde Mg RN [facility] [id number] NotePatient: Juhi Cope Procedure Information Date: 11/28/22 Procedure: Labor [...] products. patient is not NPO Additional Equipment RequestsV[facility] Center01-03-2023 NoteLabor Progress Note Date: 11/28/2022 Time: 2:14 AM Subjective: Juhi Cope is a 27 y.o. female at [...] and reassuring. CCM. Cx:1/70/-3 FHT: Cat 1 [place]:q3-4 min A/P: 1. IOL-PreEwSF. FHT 130 baseline, with moderate variability, Accelerations present Yes, and rare late deceleration . Cervical exam unchanged. Cytotec x4 placed at this time. Patient intermittently feeling contractions. BP mild range. Cx: 1-2/70/-3 FHP: defer FHT: Cat I [place]: a3-4min A/P: 1. IOL-PreEwSF: FHT Category I, [...] Cx: unchanged FHP: defer FHT: Cat I [place]: q4min A/P: 1. IOL-PreEwSF: FHT Category I, [...] 11/29/2022 6:17 AM Cx:1-2/60/-3 FHT: Cat I [place]:q4-5mins A/P: 1. IOL-PreEwSF: Cat I FHT with [...] per protocol. CCM. Cx:defer FHT: Cat I [place]:q4-6mins A/P: 1. IOL-PreEwSF: Cat I FHT with baseline 120, moderate variability, spontaneous accelerations, and no decelerations. BP normotensive to mild range since last note time. Pitocin @ 2 cc/hr, continue to titrate per protocol. Magnesium sulfate running for seizure prophylaxis, UOP 400 ml over past 4 hours. CCM. Cx:defer FHT: Cat I [place]:q4-5mins A/P: 1. IOL-PreEwSF: Cat I FHT with baseline 135, moderate variability, spontaneous accelerations, and no decelerations. BP normotensive to mild range since last note time. Pitocin @ 6 cc/hr, continue to titrate per protocol. Magnesium sulfate running for seizure prophylaxis, UOP 600 ml over past 4 hours. Will plan for AROM soon. CCM. Cx:defer FHT: Cat I [place]:irritability A/P: 1. IOL-PreEwSF: Pit @ 8 mu/min. Patient resting comfortably and only irritability tracing on toco. BP most recently mild range. On magnesium sulfate for seizure prophylaxis. UOP adequate. Continue magnesium and continue to titrate pitocin per protocol. Plan for AROM once patient rudi more regularly. Electronically signed by Cortney Velasquez DO 11/29/2022 4:21 PM Cx:/-3 FHT: Cat 1 [place]:Not tracing A/P: 1. IOL-PreEwSF. FHT 135 baseline, with moderate variability, Accelerations present Yes, and no decelerations seen . AROM at this time for moderate amount blood tinged fluid. Pitocin at 8cc/hr. Maternal BP mild range. On Magnesium for Seizure prophylaxis. Patient with adequate urinary output. CCM. Cx: defer FHP: defer FHT: Cat II [place]: not tracing well A/P: 1. IOL-PreEwSF: FHT Category II for brief period of lates vs early deceleration (more content not included)...[facility]01-03-[facility] NoteObstetrical History and Physical CHIEF COMPLAINT: SUH [...] 34w6d Is this patient being delivered between 69m1k-05f9m weeks with an acceptable medical indication (obstetric, maternal, and/or )? NA: Not Applicable: This patient is being delivered outside of the PC-01 range (60s1l-41c7f) for reasons indicated in the medical record. [...] VTE Prophylaxis: Not Indicated (more content not included)...[facility]01-03-[facility] History and physical note* Cassie Constantino MD [...] 34w6d Is this patient being delivered between 49k8f-81u1g weeks with an acceptable medical indication (obstetric, maternal, and/or )? NA: Not Applicable: This patient is being delivered outside of the PC-01 range (73j0g-81k1k) for reasons indicated in the medical record. [...] plan. Cassie Constantino MD 11/28/2022, 12:48 AM [facility] [id number] History and physical note* Cassie Constantino MD [...] 34w6d Is this patient being delivered between 65c7q-36w2n weeks with an acceptable medical indication (obstetric, maternal, and/or )? NA: Not Applicable: This patient is being delivered outside of the PC-01 range (89b7e-00r8a) for reasons indicated in the medical record. [...] MD 11/28/2022, 12:48 AM documented in this [facility]01-02-2023 Evaluation + Plan note Extracted from:Title:OB High Risk Antepartum Visit *Author:Fredi DORSEY MD Date:11/27/22 Impression and Plan Diagnosis 34 weeks 5 days. Preeclampsia. contractions. Maternal tachycardia.. Course: Worsening, New onset headache may be a signal of worsening symptoms of preeclampsia.. Orders I discussed this case with the maternal- medicine department at [facility] in [facility], Dr. Thea Nieves, she accepted to transfer due to preeclampsia. Plan: Magnesium sulfate per protocol, betamethasone, transfer arrangements are in progress..[facility]08-19-2022 Evaluation + Plan note Extracted from:Title:ED NoteAuthor:Kumar Villagomez DO ADate:07/14/22 Abdominal pain in (O26.899: Other specified related conditions, unspecified trimester) Bleeding hemorrhoid (K64.9: Unspecified hemorrhoids) Unspecified abdominal pain (R10.9: Unspecified abdominal pain) Orders: acetaminophen, 650 mg = 2 tab(s), Tab, Oral, Once, Stop date 07/14/22 6:28:00 EDT, STAT, Start date07/14/22 6:28:00 EDT, 07/14/22 6:28:00 EDT ondansetron, 4 [...] Colace and Proctofoam and follow-up with her [facility] [employer] [facility] physician in the outpatient setting. She is provided with a note for work. Additional diagnosis: Constipation, UTI and [facility]08-19-2022 Hospital Discharge instructions Follow Up Care 07/14/2022 06:07:36 With:Denny Meza Address:Unknown When:07/17/2022 07:24:48 With:DENNY RODRÍGUEZ Address: [address] [place] [address]- Business (1) When:Within 3 Day(s) [facility]08-19-2022 Hospital Discharge instructions Follow Up Care 07/14/2022 04:40:16 With:Denny Meza Address: [address], [facility] [address] [place] [address]- Business (1) When:07/17/2022 Comments:Appointment has already been scheduledCall Dr if fever>100.5 F, heavy bleedingCall for any problems.Call for severe abdominal painCall physician for heavy vaginal bleedingCall physician if symptoms worsenPlease call if you need to rescheduleReturn for contractions closer, longer, harderReturn ifruptured membranes or vaginal bleeding [facility]05-31-2022 Evaluation + Plan note Diagnostic Tests Pending * Ogwnr-3-Gojftrkdppj 04/25/22 * NIEGL w/Reflex if POS 04/25/22 * Ceruloplasmin 04/25/22 * HCV Antibody RFX to Quant PCR 04/25/22 * HBV Core Ab 04/25/22 * Hepatitis B Surface Antibody 04/25/22 * Hepatitis B Surface Antigen 04/25/22 * Smooth Muscle Antibody Screen 04/25/22 [facility]05-24-2022 Evaluation note* Encounter Date Diagnosis Assessment Notes Treatment Notes Treatment Clinical Notes March, Elevated liver function tests (I CD-10 - R79.89) LABS INDICATED ABOVE FIBROSCAN [facility] Other Evaluation note* Diagnosis Pelvic pain in female- Primary Unspecified symptom associated with female genital organs [facility]* Diagnosis Chronic pelvic pain in female- Primary Unspecified symptom associated with female genital organs Constipation, unspecified constipation type High-tone pelvic floor dysfunction Other specified disorders of female genital organs Diastasis of rectus abdominis Dysmenorrhea Other specified dyspareunia [facility]* Diagnosis Endometriosis- Primary Endometriosis, site unspecified Pelvic and perineal pain Unspecified symptom associated with female genital organs [facility]* Diagnosis Pelvic pain in female- Primary Unspecified symptom associated with female genital organs [facility]* Diagnosis Pelvic pain in female- Primary Unspecified symptom associated with female genital organs [facility]* Diagnosis High-tone pelvic floor dysfunction- Primary Other specified disorders of female genital organs Chronic pelvic pain in female Unspecified symptom associated with female genital organs [facility]* Diagnosis Pelvic and perineal pain Unspecified symptom associated with female genital organs [facility]* Diagnosis Menorrhagia with regular cycle Pelvic pain in female Unspecified symptom associated with female genital organs Uses control documented in this encounter [facility]* Diagnosis Preeclampsia, severe, third trimester- Primary Preeclampsia, severe, third trimester [facility]* Diagnosis Pre-eclampsia, severe, delivered- Primary documented [facility] this encounter [facility]* Diagnosis Dysmenorrhea, unspecified documented in this encounter [facility]* Diagnosis Well woman exam with routine gynecological exam Routine gynecological examination documented in this encounter [facility]* Diagnosis Hypertension, unspecified type (CMS/HCC)- Primary Paroxysmal tachycardia, unspecified (CMS/HCC) Paroxysmal tachycardia, unspecified Chronic right shoulder pain Pain in joint, shoulder region Scapular dyskinesis Lack of coordination documented in this encounter [facility] note* Diagnosis Pain in female genitalia on intercourse Dyspareunia Endometriosis Endometriosis, site unspecified documented in this encounter [facility] HealthcareEvaluation noteNo assessment information availableAvita Health System Ctr Work Phone: Evaluation note* Diagnosis Missed menses , unspecified gestational age Encounter for supervision of normal first in first trimester documented in this encounter [facility] note* Diagnosis Nonintractable episodic headache, unspecified headache type- Primary Second trimester ([facility]) state, incidental 13 weeks gestation of ([facility]) documented in this encounter [facility]* Diagnosis Sinusitis, unspecified chronicity, unspecified location- Primary Second trimester ([facility]) state, incidental 17 weeks gestation of ([facility]) Screening, , for anatomic survey ([facility]) Encounter for anatomic survey documented in this encounter [facility] note* Diagnosis 20 weeks gestation of ([facility]) Second trimester ([facility]) state, incidental Diabetes mellitus screening Screening for diabetes mellitus documented in this encounter [facility] note* Diagnosis Wellness examination- Primary Hypertension, unspecified type Lipid screening Screening for lipoid disorders documented in this encounter [facility]* Diagnosis Wellness examination- Primary Hypertension, unspecified type Lipid screening Screening for lipoid disorders 24 weeks gestation of ([facility]) Second trimester ([facility]-HCC) state, incidental Elevated glucose tolerance test Impaired glucose tolerance test documented in this encounter [facility]Evaluation note* Diagnosis Gestational diabetes mellitus (GDM) [...] trimester, gestational diabetes method of control unspecified ([facility]) documented in this encounter [facility] HealthcareEvaluation note* Diagnosis Wellness examination- Primary Hypertension, unspecified type Lipid screening Screening for lipoid disorders Hypertension affecting , antepartum ([facility]-HCC)- Primary 27 weeks gestation of ([facility]-HCC) Second trimester ([facility]HS-HCC) state, incidental documented in this encounter [facility] HealthcareEvaluation note* Diagnosis Diet controlled gestational diabetes mellitus (GDM) in second trimester- Primary Essential hypertension affecting in third trimester [facility]* Diagnosis 28 weeks gestation of - Primary Insulin controlled gestational diabetes mellitus (GDM) in second trimester Essential hypertension affecting in third trimester [facility]* Diagnosis Essential hypertension affecting in third trimester [facility]* Diagnosis Wellness examination- Primary Hypertension, unspecified type Lipid screening Screening for lipoid disorders 29 weeks gestation of ([facility]-HCC) Third trimester ([facility]HS-HCC) state, incidental Hypertension affecting , antepartum ([facility]HS-HCC) Gestational diabetes mellitus (GDM), antepartum, gestational diabetes method of control unspecified([facility]) documented in this encounter [facility] HealthcareHistory general Narrative - Reported* Type Description Date Medical History headache Surgical HistoryappendectomySurgical Historyshoulder surgerySurgical History endometriosis [facility] Other History of Present illness Narrative* 26 [...] engaged x 1 year * working at [email or web address] in [place] [address] Work Phone: Hospital course Narrative No data available for this section [facility] No data available for this section [facility] HospitalInstructionsNot on filedocumented in this encounter [facility]ructionsNot on filedocumented in this encounter [facility] SystemInstructionsNot on filedocumented in this encounter [facility] SystemInstructionsNot on filedocumented in this encounter [facility] SystemInstructions* Attachments The following attachments cannot be sent through Care Everywhere. * Preeclampsia ([place]) documented in this encounterProMedica Health SystemInstructionsNot on file documented in this encounterProMediia Health SystemInstructionsNot on file documented in this encounterProV[facility] Health SystemProgress note No data available for this section [facility] HospitalReason for visit NarrativePT HERE AT REQUEST OF DR RODRÍGUEZ FOR EVALUATION AND TREATMENT OF ELVATED LIVER FUNCTION- ( DR. SAMUEL PT), LABS FROM DR RODRÍGUEZ REVIEWED BY DR Iraheta [employer] Other Summary Purpose Family History No Family History Records FoundUnknown Family Member Name Dates Details No pertinent family history: Mother(V49.89, Z78.9) Status:Active Relationship Condition Age at Onset Recorded Date/T laney father Malignant neoplasm of colon Unknown grandparentMalignant neoplasm of colonUnknownMalignant neoplasm of breastUnknown grandparentMalignant neoplasm of breastUnknownfatherFamily history of colon cancerUnknownDeceasedUnknownMalignant neoplasmUnknownfamily memberDeceased UnknownmotherHypertensionUnknown Advance Directives No Advanced Directives Records FoundLatest Code Status on File Code StatusDate ActivatedDate InactivatedCommentsFull Code11/28/2022 12:47 AM 12/02/2022 8:31 PMCode StatusDate ActivatedDate InactivatedCommentsFull Code 11/28/2022 12:47 AM12/02/2022 8:31 PM Advance Directive Response Recorded Date/ Time Advance Directives No May 16 12:02pm Procedure Findings Note Post Operative Note: PreOp D iagnosis: chronic pelvic pain Post-Procedure Diagnosis: endometriosis Procedure: 1. Laparoscopic excision of endometriosis 2. Bilateral ureterolysis Surgeon: Dr. Charlene Rodriguez Resident/Fellow/Other Sanitation Truck Cleaner: Glory Palacio Anesthesia: general I.V. Fluids: 500 [...] to discuss pain related to endometriosis, declined director sanitation bureau. ART EDUCATOR Reason for Referral SpecialtyDiagnoses / ProceduresReferred By ContactReferred To ContactMR IMAGING Diagnoses Pelvic and perineal pain Procedures MRI FEMALE PELVIS WO/W IVCON MRI PELVIS W/O & W/CONTRAST MATERIAL Charlene Rodriguez DO [address] [facility] [address] [place] [address] Mr Imaging Referral IDStatusReasonStart DateExpiration DateVisits RequestedVisits [id number] Auto-Generated Referral /[id number] / ProceduresReferred By ContactReferred To ContactREHAB AND SPORTS THERAPY INS Diagnoses Constipation, unspecified constipation type High-tone pelvic floor dysfunction Diastasis of rectus abdominis Dysmenorrhea Other specified dyspareunia Chronic pelvic pain in female Procedures CONSULT TO PHYSICAL THERAPY PHYSICAL THERAPY EVALUATION HIGH COMPLEX 45 MINS Jihan Downs APRN.TRUSS MAKER [address] [place] [address] [facility] [place] [address] [place] [id number] Referral IDStatusReasonStart DateExpiration DateVisits RequestedVisits [id number] Review Auto-Generated Referral / Chief Complaint and Reason for Visit Chief Complaint Admit Date N94.10 N80.9 February 02, 2025 3:1 6pm Additional Source Comments INFORMATION SOURCE (unrecogn ized section and content) DATE CREATED AUTHOR 10/26/2020 [facility] DATE CREATED AUTHOR AUTHOR'S ORGANIZ ATION 11/06/2020 [facility] DATE CREATED AUTHOR AUTHOR'S ORGANIZ ATION 12/17/2020 [facility] DATE CREATED AUTHOR AUTHOR'S ORGANIZ ATION 04/21/2021 [facility] DATE CREATED AUTHOR AUTHOR'S ORGANIZ ATION 06/05/2021 [facility] DATE CREATED AUTHOR AUTHOR'S ORGANIZ ATION 10/02/2021 [facility] DATE CREATED AUTHOR AUTHOR'S ORGANIZ ATION 02/10/2022 [facility] DATE CREATED AUTHOR AUTHOR'S ORGANIZ ATION 12/05/2022 [facility] DATE CREATED AUTHOR AUTHOR'S ORGANIZ ATION 04/30/2024 [facility] DATE CREATED AUTHOR AUTHOR'S ORGANIZ ATION 02/09/2025 [facility] DATE CREATED AUTHOR AUTHOR'S ORGANIZ ATION 03/15/2025 [facility] DATE CREATED AUTHOR AUTHOR'S ORGANIZ ATION 08/03/2025 [facility] DATE CREATED AUTHOR AUTHOR'S ORGANIZ ATION 08/13/2025 [facility] DATE CREATED AUTHOR AUTHOR'S ORGANIZ ATION 08/16/2025 [facility] DATE CREATED AUTHOR AUTHOR'S ORGANIZ ATION 08/20/2025 [facility] DATE CREATED AUTHOR AUTHOR'S ORGANIZ ATION 08/21/2025 [facility] DATE CREATED AUTHOR AUTHOR'S ORGANIZ ATION 08/29/2025 [facility] DATE CREATED AUTHOR AUTHOR'S ORGANIZ ATION 09/06/[address] [facility] DATE CREATED AUTHOR AUTHOR'S ORGANIZ ATION 09/12/2025 [facility] DATE CREATED AUTHOR AUTHOR'S ORGANIZ ATION 09/18/2025 [facility] EPIC Care Team (unrecognized sect ion and content) Team MemberRelationshipSpecialtyStart DateEnd Date Denny Rodríguez MD [address] [place] [address] PCP - GeneralFamily Medicine12/03/14Te MemberRelationshipSpecialtyStart DateEnd Date Denny Rodríguez MD [address] [place] [address] PCP - GeneralFami Medicine12/03/14Team MemberRelationshipSpecialtyStart DateEnd Date Denny Rodríguez MD [address] [place] [address] PCP - Generalmily Medicine12/03/14Team MemberRelationshipSpecialtyStart DateEnd Date Denny Rodríguez MD [address] [place] [address] PCP - GeneralFamily Medicine12/03/14Team MemberRelationshipSpecialtyStart DateEnd Date Denny Rodríguez MD [address] [place] [address] PCP - GeneralFamily Medicine12/03/14Team MemberRelationshipSpecialtyStart DateEnd Date Denny Rodríguez MD [address] [place] [address] PCP - GeneralFamily Medicine12/03/14Team MemberRelationshipSpecialtyStart DateEnd Date Denny Rodríguez MD [address] [place] [address] PCP - GeneralFamily Medicine12/03/14Team MemberRelationshipSpecialtyStart DateEnd Date Denny Rodríguez MD [address] [place] [address] PCP - Generalmily Medicine12/03/14Team MemberRelationshipSpecialtyStart DateEnd Date Denny Rodríguez MD [address] [place] [address] PCP - GeneralFamily Medicine12/03/14Team MemberRelationshipSpecialtyStart DateEnd Date Denny Rodríguez MD [address] [place] [address] PCP - Generalmily Medicine12/03/14Team MemberRelationshipSpecialtyStart DateEnd Date Denny Rodríguez MD [address] [place] [address] PCP - [place] Ugbrundkvy91/1/21 Denny Rodríguez MD [address] [place] [address] PCP - GeneralFamily Medicine04/10/23 Denny Rodríguez MD [address] [place] [address] PCP - [facility]02/24/23 Zenobia East NP [address] [place] [address] Nurse PractitionerFamily Ejsujrwu64/10/23 Trista Thao NP [address] [place] [address] Nurse PractitionerPulmonary Cmwmoqk02/10/23Team MemberRelationshipSpecialtyStart DateEnd Date Denny Rodríguez MD [address] [place] [phone] [facility]/03/14Team MemberRelationshipSpecialtyStart DateEnd Date Denny Rodríguez MD [address] [place] [phone] [facility] - [facility]12/03/14Te MemberRelationshipSpecialtyStart DateEnd Date Denny Rodríguez MD [address] [place] [address] PCP - [place] Hmtpeqwatl94/1/21 Denny Rodríguez MD [address] [place] [address] PCP - [facility]02/24/23 Eliceo Beltran DO [address] [place] [address] PCP - [facility]02/14/24Team MemberRelationshipSpecialtyStart DateEnd Date Denny Rodríguez MD [address] [place] [address] PCP - [facility] Xlzqisfjkf72/1/21 Denny Rodríguez MD [address] [place] [address] PCP - [facility]02/24/23 Eliceo Beltran DO [address] [place], [facility] PCP - [facility]02/14/24Team MemberRelationshipSpecialtyStart DateEnd Date Denny Rodríguez MD [address] [place], [facility] PCP - [facility] Rfpgieayxc25/1/21 Denny Rodríguez MD [address] [place], [facility] PCP - [facility]02/24/23 Eliceo Beltran DO [address] [place], [facility] PCP - [facility]02/14/24Team MemberRelationshipSpecialtyStart DateEnd Date Denny Rodríguez MD [address] [place] [address] PCP - [facility] Dogklucbft67/1/21 Denny Rodríguez MD [address] [place] [address] PCP - [facility]02/24/23 Eliceo Beltran DO [address] [place] [address] PCP - [facility]Family [facility]02/14/24Team MemberRelationshipSpecialtyStart DateEnd Date Denny Rodríguez MD [address] [place] [address] PCP - [facility] Varnpcrqbr62/1/21 Denny Rodríguez MD [address] [place] [address] PCP - [facility]02/24/23 Eliceo Beltran DO [address] [place] [address] PCP - GeneralFamily Medicine02/14/24Team MemberRelationshipSpecialtyStart DateEnd Date Denny Rodríguez MD [address] [place] [address] PCP - [facility] Qgbxesjkll59/1/21 Eliceo Beltran DO [address] [place] [address] PCP - [facility]Family Medicine02/14/24Team MemberRelationshipSpecialtyStart DateEnd Date Eliceo Beltran DO [address] [place] [address] PCP - GeneralFamily Medicine02/14/24Team MemberRelationshipSpecialtyStart DateEnd Date Eliceo Beltran DO [address] [place] [address] PCP - General acute hospital Medicine02/14/24 Team Status: Active Member Role Status Dates Denny Rodríguez MD Primary Care Provider Active Team Status: Inactive Member Role Status Dates Denny Rodríguez MD Primary Care Provider Active S tart: February 02, 2025 End: February 02orepearl Pop DOAttending ProviderActiveStart: February 02, 2025 End: February 02, 2025Team MemberRelationshipSpecialtyStart DateEnd Date Eliceo Beltran DO [address] [place] [address] PCP - [facility]02/14/24 Eliceo Beltran DO [address] [place] [address] PCP - [facility] [employer]07/27/2412Team MemberRelationshipSpecialty Start DateEnd Date Eliceo Beltran DO [address] [place] [address] PCP - General acute hospital Medicine02/14/24 Eliceo Beltran DO [address] [place] [address] PCP - [facility] [employer]07/27/2412Team MemberRelationshipSpecialty Start DateEnd Date Eliceo Beltran DO [address] [place] [address] PCP - General acute hospital Medicine02/14/24 Eliceo Beltran DO [address] [place] [address] PCP - [facility] [employer]07/27/2412Team MemberRelationshipSpecialty Start DateEnd Date Eliceo Beltran DO [address] [place] [address] PCP - [facility]02/14/24 Eliceo Beltran DO [address] [place] [address] PCP - [facility] [employer]07/27/2412Team MemberRelationshipSpecialty Start DateEnd Date Eliceo Beltran DO [address] [place] [address] PCP - General acute hospital Medicine02/14/24 Eliceo Beltran, [address] [place] [address] PCP - [facility] [employer]07/27/2412Team MemberRelationshipSpecialty Start DateEnd Date Eliceo Beltran, [address] [place] [address] [facility] Eliceo Beltran, [address] [place] [address] PCP - [facility] [employer]07/27/2412Team MemberRelationshipSpecialty Start DateEnd Date Eliceo Beltran DO [address] [place] [address] [facility] Eliceo Beltran DO [address] [place] [address] PCP - [facility] [employer]07/27/2412Te MemberRelationshipSpecialty Start DateEnd Date Eliceo Beltran DO [address] [place] [address] PCP - General acute hospital Medicine02/14/24 Eliceo Beltran, DO [address] [place] [address] PCP - [facility] [employer]07/27/2412Team MemberRelationshipSpecialty Start DateEnd Date Eliceo Beltran DO [address] [place] [address] PCP - [facility]02/14/24 Eliceo Beltran, [address] [place] [address] PCP - [facility] [employer]07/27/2412Team MemberRelationshipSpecialty Start DateEnd Date Eliceo Beltran DO [address] [place] [address] PCP - General acute hospital Medicine02/14/24 Eliceo Beltran, DO [address] [place] [address] PCP - [facility] [employer]07/27/2412Team MemberRelationshipSpecialty Start DateEnd Date Eliceo Beltran DO [address] [place] [address] PCP - GeneralFamily Medicine02/14/24 Eliceo Beltran DO [address] [place] [address] PCP - [facility] [employer]07/27/2412Team MemberRelationshipSpecialty Start DateEnd Date Denny Rodríguez MD [address] [place] [address] PCP - GeneralFamily Medicine12/02/18 MemberRelationshipSpecialtyStart DateEnd Date Denny Rodríguez MD [address] [place] [address] PCP - GeneralFamily Medicine12/02/18Te MemberRelationshipSpecialtyStart DateEnd Date Eliceo Beltran, [address] [place] [address] PCP - [facility]02/14/24 Eliceo Beltran DO [address] [place] [address] PCP - [facility] [employer]07/27/2412Team MemberRelationshipSpecialty Start DateEnd Date Eliceo Beltran DO [address] [place] [address] PCP - GeneralFamily Medicine02/14/24 Eliceo Beltran DO [address] [place] [address] PCP - [facility] [employer]07/27/2412Team MemberRelationshipSpecialty Start DateEnd Date Eliceo Beltran DO [address] [place] [address] PCP - GeneralFamily Medicine02/14/24 Eliceo Beltran DO [address] [place] [address] PCP - [facility] [employer]07/27/2412Team MemberRelationshipSpecialty Start DateEnd Date Eliceo Beltran DO [address] [place] [address] PCP - GeneralFamily Medicine02/14/24 Eliceo Beltran DO [address] [place] [address] PCP - [facility] [employer]07/27/2412Team MemberRelationshipSpecialty Start DateEnd Date Denny Rodríguez MD [address] [place] [address] PCP - GeneralFamily Medicine12/02/18Team MemberRelationshipSpecialtyStart DateEnd Date Eliceo Beltran DO [address] [place] [address] PCP - GeneralFamily Medicine02/14/24 Eliceo Beltran DO [address] [place] [address] PCP - [facility] [employer]07/27/2412Team MemberRelationshipSpecialty Start DateEnd Date Eliceo Beltran DO [address] [place] [address] PCP - [facility]02/14/24 Eliceo Beltran DO [address] [place] [address] PCP - [facility] [employer]07/27/2412Team MemberRelationshipSpecialty Start DateEnd Date Denny Rodríguez MD [address] [place] [address] PCP - General acute hospital Medicine12/02/18Te MemberRelationshipSpecialtyStart DateEnd Date Denny Rodríguez MD [address] [place] [address] PCP - General acute hospital Medicine12/02/18Te MemberRelationshipSpecialtyStart DateEnd Date Eliceo Beltran DO [address] [place] [address] PCP - General acute hospital Medicine02/14/24 Eliceo Beltran DO [address] [place] [address] PCP - [facility] [employer]07/27/2412Team MemberRelationshipSpecialty Start DateEnd Date Eliceo Beltran DO [address] [place] [address] PCP - General acute hospital Medicine02/14/24 Eliceo Beltran DO [address] [place] [address] PCP - [facility]07/27/2412Team MemberRelationshipSpecialty Start DateEnd Date Denny Rodríguez MD [address] [place] [address] PCP - GeneralFamily Medicine12/02/18 Source Comments (unrecognize d section and content) In the event this informatio n is protected by the Federal Confidentiality of Alcohol and Drug Abuse Patient Records regulations: The Federal rules restrict any use of the information to criminally investigate or prosecute any alcohol or drug abuse patient.[facility] HospitalIn the event this information is protected by the Federal Confidentiality of Alcohol and Drug Abuse Patient Records regulations: The Federal rules restrict any use of the information to criminally investigate or prosecute any alcohol or drug abuse patient.[facility] HospitalIn the event this information is protected by the Federal Confidentiality of Alcohol and Drug Abuse Patient Records regulations: The Federal rules restrict any use of the information to criminally investigate or prosecute any alcohol or drug abuse patient.[facility] HospitalIn the event this information is protected by the Federal Confidentiality of Alcohol and Drug Abuse Patient Records regulations: The Federal rules restrict any use of the information to criminally investigate or prosecute any alcohol or drug abuse patient.[facility] HospitalIn the event this information is protected by the Federal Confidentiality of Alcohol and Drug Abuse Patient Records regulations: The Federal rules restrict any use of the information to criminally investigate or prosecute any alcohol or drug abuse patient.[facility] HospitalIn the event this information is protected by the Federal Confidentiality of Alcohol and Drug Abuse Patient Records regulations: The Federal rules restrict any use of the information to criminally investigate or prosecute any alcohol or drug abuse patient.[facility] HospitalIn the event this information is protected by the Federal Confidentiality of Alcohol and Drug Abuse Patient Records regulations: The Federal rules restrict any use of the information to criminally investigate or prosecute any alcohol or drug abuse patient.[facility] HospitalIn the event this information is protected by the Federal Confidentiality of Alcohol and Drug Abuse Patient Records regulations: The Federal rules restrict any use of the information to criminally investigate or prosecute any alcohol or drug abuse patient.[facility] HospitalIn the event this information is protected by the Federal Confidentiality of Alcohol and Drug Abuse Patient Records regulations: The Federal rules restrict any use of the information to criminally investigate or prosecute any alcohol or drug abuse patient.[facility] HospitalIn the event this information is protected by the Federal Confidentiality of Alcohol and Drug Abuse Patient Records regulations: The Federal rules restrict any use of the information to criminally investigate or prosecute any alcohol or drug abuse patient.[facility] HospitalIn the event this information is protected by the Federal Confidentiality of Alcohol and Drug Abuse Patient Records regulations: The Federal rules restrict any use of the information to criminally investigate or prosecute any alcohol or drug abuse patient.[facility] HospitalIn the event this information is protected by the Federal Confidentiality of Alcohol and Drug Abuse Patient Records regulations: The Federal rules restrict any use of the information to criminally investigate or prosecute any alcohol or drug abuse patient.[facility] HospitalIn the event this information is protected by the Federal Confidentiality of Alcohol and Drug Abuse Patient Records regulations: The Federal rules restrict any use of the information to criminally investigate or prosecute any alcohol or drug abuse patient.[facility] HospitalIn the event this information is protected by the Federal Confidentiality of Alcohol and Drug Abuse Patient Records regulations: The Federal rules restrict any use of the information to criminally investigate or prosecute any alcohol or drug abuse patient.[facility] HospitalIn the event this information is protected by the Federal Confidentiality of Alcohol and Drug Abuse Patient Records regulations: The Federal rules restrict any use of the information to criminally investigate or prosecute any alcohol or drug abuse patient.[facility] Reason for Visit (unrecogniz ed section and content) ReasonCommentsMenstrual ProblemReasonCommentsVaginal BleedingReasonComments EndometriosisReasonCommentsInsurance AuthorizationOrilissaReasonCommentsPelvic PainSpecialtyDiagnoses / ProceduresReferred By ContactReferred To ContactOB/[facility] / GYNECOLOGY Diagnoses Painful menstrual periods Painful Periods Procedures OFFICE/OUTPATIENT ESTABLISHED MDM 10-19 MIN EST WHI PATIENT Jihan Downs APRN.[employer] [address] [place] [address] Jihan Downs, GRAPHIC ARTS TECHNICIAN.[employer] [address] [place] [address] Referral IDStatusReasonStart DateExpiration DateVisits RequestedVisits [id number] MRI SpecialtyDiagnoses / ProceduresReferred By ContactReferred To ContactMR IMAGING Diagnoses Pelvic and perineal pain Procedures MRI FEMALE PELVIS WO/W IVCON MRI PELVIS W/O & W/CONTRAST MATERIAL Charlene Rodriguez, [address] [place] [address] [facility] [place] [address] Referral IDStatusReasonStart DateExpiration DateVisits RequestedVisits [id number] Auto-Generated Referral /[id number] DateCommentsRefill Ctmiphy69/07/2024Reason CommentsMenorrhagiaCramping with bleedingReasonCommentsSurgery Cancelled SpecialtyDiagnoses / ProceduresReferred By ContactReferred To Contact Diagnoses Preeclampsia, severe, third trimester Procedures O14.13 - Preeclampsia, severe, third trimester Kathe Ryder DO [address] [place] [address] [facility] [address] [place] [address] Referral IDStatusReasonStart DateExpiration DateVisits RequestedVisits [id number] Pressure CheckReasonCommentsDysmenorrhea ReasonCommentsWell Women VisitReasonCommentsShoulder PainReasonCommentsPainful IntercourseReasonCommentsAmenorrheaReasonCommentsRoutine VisitReason CommentsGestational DiabetesSpecialtyDiagnoses / ProceduresReferred By Contact Referred To ContactMaternal and Medicine Diagnoses Gestational diabetes mellitus (GDM) in second trimester, gestational diabetes method of control unspecified Nathan Pop, DO [address] [place] [address] Phone: tel: fax: M[facility]- Medicine at [facility] [address] [place] [address] Phone: tel: fax: Referral IDStatusReasonStart DateExpiration DateVisits RequestedVisits [id number] Review Specialty Services Required /[id number] consult Scheduled Active and Recently Administ ered Medications (unrecognized section and content) Medication Order//05/2023 ferrous sulfate tablet 325 mg 325 mg, Oral, 2 times daily with meals, First dose on Sun11/30/22 at 0800, , Start if Hgb less than 10. * 0800 (Not Given - Provider: Alejandra Arcos RN - Reason: Order parameters not met) * 1700 (Canceled Entry - Provider: Automatic Discharge Provider - Comment: Automatically canceled at discontinue of medication order) * 0800 (Not Given - Provider: Alejandra Arcos RN - Reason: Order parameters not met) * 1700 (Canceled Entry - Provider: Automatic Discharge Provider - Comment: Automatically canceled at discontinue of medication order) * 0800 (Not Given - Provider: Anna Booth RN - Reason: Order parameters not met) * 1700 (Canceled Entry - Provider: Automatic Discharge Provider - Comment: Automatically canceled at discontinue of medication order) miSOPROStol (Cytotec) tablet 1,000 mcg (COMPLETED) 1,000 mcg, Rectal, Once, On Sun11/30/22 at 0315, For 1 dose * 0302 (Given - Provider: Chelsi Carlson RN - Comment: given emergently for post hemm) NIFEdipine XL (Procardia XL) 24 hr tablet 30 mg 30 mg, Oral, Daily, First dose on Sun11/28/22 at 0115, Do not crush, chew, or split. * 0808 (Given - Provider: Alejandra Arcos, RN) * 0803 (Given - Provider: Alejandra Arcos, RN) * 0942 (Given - Provider: Anna Booth RN) Medication Order11/30///05/2023 magnesium sulfate 20 GM/500ML infusion () 2,000 mg/hr (50 mL/hr), IntraVENous, Continuous, Starting on Sun11/28/22 at 0100, For 3 days 2 hours * 0536 (New Bag - Provider: Chelsi Carlson RN) * 1502 (New Bag - Provider: Alejandra Arcos, DIALLO) * 0112 (New Bag - Provider: Lani Fraga, DIALLO) * 0300 (Stopped - Provider: Lani Fraga, DIALLO) oxytocin [...] every 2-3 minutes with cervical changes or [place] units (MVU) greater than 200 in a 10-minute window. Maximum infusion rate: 20 paulo-unit/min. Contact provider if maximum rate does not achieve desired response. Provider may order alternative titration goal or other clinically appropriate goal of titration rate (s). Smaller titration increments of 1 paulo-units/min, not faster than every 30 minutes, may be used when approaching therapeutic goal. * 0059 (Rate/Dose Change - Provider: Chelsi Carlson RN) * 0223 (Rate/Dose Change - Provider: Chelsi Carlson RN) [...] to 250cc/hr for 1 hour. Then discontinue. * 0430 (Canceled Entry - Provider: Automatic Discharge [...] an additional infusion of 500cc (30 units). * 0430 (Canceled Entry - Provider: Automatic Discharge Provider - Comment: Automatically canceled at discontinue of medication order) Medication Order11/30////05/2023 acetaminophen (Tylenol) tablet 650 mg 650 mg, Oral, Every 6 hours PRN, mild pain (1-3), Starting on Constance 11/30/22 at 0422, Give in addition to any other pain medication ordered at same time for any pain indication. Maximum dose of acetaminophen is 4000 mg from all sources in 24 hours. Alternate ibuprofen and acetaminophen every 3 hours. * 0531 (Given - Provider: Chelsi Carlson RN) * 1204 (Given - Provider: Alejandra Arcos RN) * 1931 (Given - Provider: Lani Fraga RN) * 0551 (Given - Provider: Lani Fraga RN) * 1221 (Given - Provider: Alejandra Arcos RN) * 2327 (Given - Provider: Lida Mark, DIALLO) * 0942 (Given - Provider: Anna Booth, RN) * 1601 (Given - Provider: Anna Booth RN) Benzocaine-Benzethonium 20-0.2 % spray Topical, As needed, pain, , Starting on Constance 11/30/22 at 0608, , Apply to perinealarea. Patient is capable and may self administer at bedside. diphenhydrAMINE (BENADryl) injection 25 mg(Linked Group 1) 25 mg, IntraVENous, Every 6 hours PRN, itching, Starting on Constance 11/30/22 at 1635 * 1654 (Given - Provider: Alejandra Arcos RN) diphenhydrAMINE (BENADryl) tablet/capsule 25 mg(Linked Group 1) 25 mg, Oral, Every 6 hours PRN, itching, Starting on Constance 11/30/22 at 1635 * 1654 (See Alternative - Provider: Alejandra Arcos RN) docusate sodium (Colace) capsule 100 mg 100 mg, Oral, 2 times daily PRN, constipation, Vaginal Delivery, Starting on Constance 11/30/22 at 0422, Donot crush or break. famotidine (Pepcid) tablet 20 mg 20 mg, Oral, 2 times daily PRN, heartburn, Starting on Constance 11/30/22 at 0608, , Renal dose per pharmacy for peptic ulcer prophylaxis. ibuprofen tablet 600 mg 600 mg, Oral, Every 6 hours PRN, mild pain (1-3), Starting on Constance 11/30/22 at 0422, Alternate ibuprofen and acetaminophen every 3 hours. * 0531 (Given - Provider: Chelsi Carlson RN) * 1204 (Given - Provider: Alejandra Arcos RN) * 1931 (Given - Provider: Lani Fraga, DIALLO) * 0551 (Given - Provider: Lani Fraga RN) * 1221 (Given - Provider: Alejandra Arcos RN) * 2327 (Given - Provider: Lida Mark, DIALLO) * 0942 (Given - Provider: Anna Booth RN) * 1601 (Given - Provider: Anna Booth RN) lanolin (Lansinoh) cream Topical, As needed, dry skin, nipple discomfort, Starting on Constance 11/30/22 at 0608, , Apply to affected area. ondansetron (Zofran) injection 4 mg(Linked Group 2) 4 mg, IntraVENous, Every 6 hours PRN, nausea, vomiting, Starting on Sun11/30/22 at 0422, 1st Line. Give IV if [...] tongue. Do not remove from blister pack untiljust before administering. oxytocin bolus from bag 30 [...] to 250cc/hr for 1 hour. Then discontinue. * 0251 (Bolus from Bag - Provider: Chelsi Carlson RN) witch yesi-glycerin (Tucks) pad Topical, As needed, hemorrhoids, For perineal pain or discomfort, Starting on Sun11/30/22 at 0608, , Apply to perineal area. Patient is capable and may self administer at bedside. Order Group 1: diphenhydrAMINE (BENADryl) injection 25 [...] vomiting, Starting on Constance 11/30/22 at 0422
1stLine. Give IV if patient is unable to [...] BE BASED ON THE PRIMARY CLINICAL RECORDS. [facility]. provides no warranty or guarantee of the accuracy or completeness of information in this document.
--- OUTSIDE RECORDS SUMMARY | 2025-09-19 07:45 | XMS_ITS | Patient Health Record ---
Author Organization [facility] Address [address] [place] [address] Care Team Providers Care Crime Scene Technician Name Role Phone Cruz Rodríguez Primary Care Provider Unavailabl e Allergies No Known Allergies Reason For Referral No Information Medications Medication SIG (Take, Route, Frequency, Duration) Notes Start Date End Date Status Jolessa 0.15-0.03 MG 1 tablet Orally Once a day ActiveMetoprolol Succinate 25 MG1 capsule Orally Once a dayActive Immunizations Vaccine Route Administration Date Status Comme nts z9 Fluzone Quad MDV (0.5m L Admin) 3y/o & older Unknown 02/09/2020 Refused z2022 FluBLOK Quad PFS (0.5mL Admin) 18 y/o & gniykSyhqmoe01/30/2215Qqbvdqtn8036 Fluzone Quad PFS (0.5mL Admin) 6 months & cvkpkFzrvrws84/17/0279Ipxotcim0866 Fluzone, 6mo & older, Quad MDV (0.5mL Admin)Jiycbzf0707/16/20231852Zfmiubzb3397 Fluzone, 6mo & older, Quad PFS (0.5mL Admin)Kcajqsh78/18/2023Contraindications z2023 Fluzone, 6mo & older, Quad PFS (0.5mL Admin)Htblmlt44/20/2024Refused Social History Tobacco Use: Social History Observation Description Date Details (start date - stop date) Never Smoker NA - NA Alcohol Misuse/Abuse (Audit C): Question Answer Notes Did you have a drink containing alcohol in the p ast year? No Points:0Interpretation:NegativeTobacco Control (Standard) Question Answer Notes Tobacco use: Nonsmoker Problems Problem Type SNOMED Code ICD Code Onset Dates Problem Status W/U Status Risk Notes Problem Tachycardia (4790366) Tachycardia (R00.0) ActiveconfirmedProblemObesity (740260911)Obesity (BMI 30-39.9) (E66.9)Active confirmed Plan Of Treatment No Information Insurance Providers Payer Name Payer Address Payer Phone Subscriber Number Group Number Insured Name Patient Relationship to Insured Coverage Start Date Coverage End Date [facility] [address] [place] [address] [id number] Driss Woodruff Self - patient is the insured Medical [place] [facility] [address] [place] [phone] [id number], AlexisSelf - patient is the insured Medical (General) History Medical History History ICD Code Tachycardia R00.0 Surgical History Surgery Date(Month/Year) right shoulder surgery endometriosisappendectomyHospitalization History Reason Date(Month/Year) surgeries childbirth
--- OUTSIDE RECORDS SUMMARY | 2025-09-19 07:45 | XMS_ITS | Encounter Summary ---
Author Organization [employer] tem Address [id number] [address] [place] [address] Care Team Providers Care Pipeline Controller Name Role Phone Cruz Rodríguez MD Primary Care Provider [phone] Reason for Referral * Diagnostic Imaging (Routine) - Pending ReviewSpecialtyDiagnoses / Procedures Referred By ContactReferred To ContactMaternal and Medicine Diagnoses Essential hypertension affecting in third trimester Insulin controlled gestational diabetes mellitus (GDM) in second trimester Encounter for follow-up ultrasound of anatomy Procedures US MFM with or without consult Quynh Clements MD [address] [address] Phone: tel: fax: [facility] at [facility] [address] [place] [address] Phone: tel: fax: Referral IDStatusReasonStart DateExpiration DateVisits RequestedVisits [id number] Encounter Details DateTypeDepartmentCare Team (Latest Contact Info)Mhxpdqxaars05/16/2025Orders Only [facility] at [facility] [address] [place] [address] Zora Samuels RN Essential hypertension affecting in third trimester (Primary Dx); Insulin controlled gestational diabetes mellitus (GDM) in second trimester; Encounter for follow-up ultrasound of anatomy Social History Tobacco UseTypesPacks/DayYears UsedDateSmoking Tobacco: NeverSmokeless Tobacco: NeverAlcohol UseStandard Drinks/WeekCommentsNo0 (1 standard drink = 0.6 oz pure alcohol)AUDIT-CAnswerDate RecordedQ1: How often do you have a drink containing alcohol?Never09/10/2025Q2: How many drinks containing alcohol do you have on a typical day when you are drinking?Patient does not drink09/10/2025Q3: How often do you have six or more drinks on one occasion?Never5ChildcareAnswer Date GmjdzbsrOckfklcldKmbnspg85/13/2019EmploymentAnswerDate RecordedEmployment Ywimqlb7405/08/2019Hunger ScreeningAnswerDate RecordedWithin the past 12 months we worried whether our food would run out before we got money to buy more.Never True09/10/2025Within the past 12 months the food we bought just didn't last and we didn't have money to get more.Never True09/10/2025Purpose - LifeAnswerDate RecordedPurpose and direction in rwtlLmgtdqh52/11/2021Estimated Date of PdltwyabFkkeavxzAmr18/03/2026Based on last menstrual period of 02/21/2025 (Exact Date)Sex and Gender InformationValueDate RecordedSex Assigned at BirthNot on fileLegal XvhOxuehs64/07/2019 2:55 PM ESTGender IdentityNot on fileSexual OrientationNot on filedocumented as of this encounter Functional Status * AUDIT-C ScoreAnswerDate of LslxerrhyuOrfnnw735/16/2025 10:17 AM Danae Salazar RN * QuestionAnswerDate of AssessmentAuthorQ1: How often do you have a drink containing alcohol?Never09/10/2025 10:17 AM Danae Salazar RNQ2: How many drinks containing alcohol do you have on a typical day when you are drinking? Patient does not drink09/10/2025 10:17 AM Danae Salazar, RNQ3: How often do you have six or more drinks on one occasion?Never09/10/2025 10:17 AM Danae Neumann RN documented as of this encounter Plan of Treatment DateTypeDepartmentCare Team (Latest Contact Info)Hhisinaowyg22/10/2025 3:00 PM ESTTelemedicine [facility]aternal[facility] at [facility] [address] [place] [address] Kayleigh Rizzo PA-C [address] [address] 10/08/2025 8:00 AM ESTAppointment Maternal Medicine [place] [address] [facility] [address] [place] [phone] NameTypePriorityAssociated DiagnosesOrder ScheduleUS MFM with or without consult ImagingRoutine Essential hypertension affecting in third trimester Insulin controlled gestational diabetes mellitus (GDM) in second trimester Encounter for follow-up ultrasound of anatomy Expected: 09/10/2026 (Approximate), Expires: 12/09/2026documented as of this encounter Visit Diagnoses Diagnosis Essential hypertension affecting in third trimester- Primary Insulin controlled gestational diabetes mellitus (GDM) in second trimester Encounter for follow-up ultrasound of anatomy documented in this encounter Care Teams Team MemberRelationshipSpecialtyStart DateEnd Date Cruz Rodríguez MD [address] [place] [address] PCP - GeneralFamily Medicine12/02/18documented as of this encounter
--- OUTSIDE RECORDS SUMMARY | 2025-09-19 07:45 | XMS_ITS | Clinical Summary ---
Author Organization [facility] Address [address] [place] [address] Care Team Providers Care Asbestos Handler Name Role Phone Eliceo Beltran DO Primary Care Provider [phone] Eliceo Beltran DO Unavailable [phone] Allergies No known active allergies Medications MedicationSigDispense QuantityRefillsLast FilledStart DateEnd DateStatus metoprolol succinate XL (Toprol-XL) 25 MG 24 hr tablet Indications:Hypertension, unspecified typeTake 1 tablet by mouth daily 90 tablet 5Active Vit-Fe Fumarate-FA ( Vitamins) 28-0.8 MG tablet Indications:, unspecified gestational age ([facility]),Encounter for supervision of normal first in first trimester ([facility])Take 1 tablet by mouth Daily 30 tablet 110506/6Active Lancets Ultra Thin [facility] Indications:Gestational diabetes mellitus (GDM), antepartum, gestational diabetes method of control unspecified([facility]),Elevated glucose tolerance test1 each by In Vitro route Daily Use to check FSBS four times daily 150 each 515Active Alcohol Swabs (Alcohol Prep Pad) 70 % pads Indications:Gestational diabetes mellitus (GDM), antepartum, gestational diabetes method of control unspecified([facility]),Elevated glucose tolerance test Apply 1 Pad topically Daily Use four times daily to check FSBS. 150 each 5Active Glucose Blood (Blood Glucose Test) strip Indications:Gestational diabetes mellitus (GDM), antepartum, gestational diabetes method of control unspecified([facility]),Elevated glucose tolerance test1 strip by In Vitro route Daily Use in the morning prior to breakfast, 1 hour after each meal for atotal of 4times daily. 150 strip 5Active Blood Glucose Monitoring Suppl ([employer] Glucometer) w/Device kit Indications:Gestational diabetes mellitus (GDM), antepartum, gestational diabetes method of control unspecified([facility]),Elevated glucose tolerance test1 kit Daily Use four times daily to check FSBS. In the morning prior to breakfast & 1 hour after each meal for a total of 4times daily. 1 kit 6Active labetalol (Normodyne) 200 MG tablet Indications:Gestational HypertensionTake 1 tablet (200 mg) by mouth in the morning and 1 tablet (200 mg) before bedtime. 60 tablet 5Active insulin glargine-yfgn (Semglee-yfgn) 100 UNIT/ML pen Inject 13 Units under the skin at dnpwrev6109/15/2025tive labetalol (Normodyne) 100 MG tablet Indications:Hypertension, unspecified typeTake 1 tablet (100 mg) by mouth in the morning and 1 tablet (100 mg) before bedtime. 60 tablet Discontinued rbjdwxdtil-ebaesja-brkjoazl (Fiorinal) 50-325-40 MG capsule Take 1 capsule by mouth every 4 (four) hours if wyfhan9409/16/2025Discontinued cetirizine (ZyrTEC) 10 MG tablet Take 10 mg by mouth in the morning.09/16/2025Discontinued Ferrous Sulfate (IRON PO) Take 1 tablet by mouth in the morning.09/16/2025Discontinued fluticasone (Flonase) 50 MCG/ACT nasal spray Administer 1 spray into affected nostril(s) in the morning.09/16/2025 Discontinued Active Problems ProblemNoted DateDiagnosed KleeUolueann15/29/2182Elzkgwzpfbt28/26/2024Obesity (BMI 30-39.9)02/19/2024cquired equinus deformity of foot03/29/2023isplacement of cervical intervertebral disc without qxbvubhrtv33/04/2023ysmenorrhea 03/29/20236344Iwavirumtazgg91/04/5963Enmdbdcfardkq80/04/5837Htgtwnoeadnf93/04/2023 Assessment & Plan (07/30/2025 4:00 PM EDT): Record Blood Pressures 2-4 times weekly and record. Return with readings at next appointment. Call with readings if sees significant changes Intractable migraine without aura and with status idcqwgnmozo51/04/2023Migraines 03/29/2023hronic pelvic pain in wunjnj8303/29/2023ain in female genitalia on hvnvejbdlqq99/04/2023ain on gxbmqyyimd94/04/2023anic rtqgfbke74/04/2023 Patellofemoral disorders, left knee03/29/2023atellofemoral disorders, right knee03/29/2023osterior calcaneal cntrsjfha20/04/2023Scapular dyskinesis 03/29/20236060Tetcyonog38/04/2023Seasonal allergic rhinitis due to xbgpbz7203/29/2023 Tachycardia, xhctdmuyoq72/04/2023Tension uequrdej20/04/2023Vitamin B12 wmahotbymv34/04/2023Vitamin D sieubhtfft84/04/2023hronic right shoulder pain 03/29/2023Estimated Date of VvuwobzxDgnnrewsMzi74/03/2026Based on last menstrual period of 02/21/2025 Encounters DateTypeDepartmentCare RcxqMijnlhilubh29/22/2025 3:20 [place] [phone] Nathan Pop DO 29 weeks gestation of ([facility]); Third trimester ([facility]); Hypertension affecting , antepartum ([facility]); Gestational diabetes mellitus (GDM), antepartum, gestational diabetes method of control unspecified([facility])09/16/2025amboo [place] [phone] Nathan Pop DO 5Abstract [facility] [place] [address] [place] [address] Nathan Pop, DO 09/09/20252586Ygmqmj11/09/2025 3:50 PM EDTRoutine [facility] [place] [facility] [place] [address] Steph Keane NP Hypertension affecting , antepartum ([facility]) (Primary Dx); 27 weeks gestation of ([facility]); Second trimester ([facility])09/03/2025linisync Result Encounter NOMS External Department Unsolicited Nathan Pop, DO 09/03/2025amblaurie flowsheet [facility] [place] [address] Steph Keane NP 09/02/20253924Bplldj95/04/2025linisync Result Encounter NOMS External Department Unsolicited Steph Keane NP 08/28/2025bstract [facility] [place] [facility] [address] [place] [phone] Eliceo Beltran DO 08/28/2025Telephone [facility] [address] [place] [address] Radha Rahman MA 08/27/2025 3:20 PM EDTRoutine [facility] [place] [phone] Steph Keane NP 26 weeks gestation of ([facility]); Second trimester ([facility]); induced hypertension, antepartum ([facility]); Gestational diabetes mellitus (GDM) in second trimester, gestational diabetes method of control unspecified ([facility])08/27/2025linisync Result Encounter NOMS External Department Unsolicited Steph Keane NP 08/27/2025linisync Result Encounter NOMS External Department Unsolicited Steph Keane NP 08/27/2025amboo flowsheet [facility] [address] [place] [address] Steph Keane, DEVYN 08/25/2025linisync Result Encounter NOMS External Department Unsolicited Provider, Generic External Data 08/20/2025bstract [facility] [place] [facility] [address] [place] [address] Nathan Pop, DO 08/20/2025Telephone [facility] [address] [place] [address] Steph Keane, DEVYN 08/17/2025bstract [facility] [address] [place] [phone] Eliceo Beltran, DO 08/17/2025bstract [facility] [address] [place] [address] Eliceo Beltran, DO 08/17/2025Telephone [facility] [place] [facility] [address] [place] [address] Natahn Pop, DO 08/12/2025 2:40 PM EDTRoutine [facility] [address] [place] [address] Nathan Pop, DO 24 weeks gestation of ([facility]); Second trimester ([facility]); Elevated glucose tolerance test08/12/2025 2:00 PM EDTAncillary Procedure [facility] [address] [place] [address] Encounter for follow-up ultrasound of anatomy ([facility])08/12/2025Telephone [facility] [address] [place] [phone] Bill Gould LPN Wefjqiw8708/12/2025bstract [facility] [address] [place] [address] Eliceo Beltran, DO 08/04/2025Telephone [facility] [address] [place] [address] Bill Gould LPN Uglkqpi1107/30/2025 3:40 PM EDTOffice Visit [facility] [address] [place] [address] Eliceo Beltran, DO Wellness examination (Primary Dx); Hypertension, unspecified type ; Lipid lhnonyyye71/04/2025amboo flowsheet [facility] [address] [place] [address] Eliceo Beltran, DO 07/30/20257903Wdqtiu09/26/2025[place] [address] Nathan Pop, DO 07/15/2025 3:30 [place] [address] Nathan Pop, DO 20 weeks gestation of ([facility]); Second trimester ([facility]); Diabetes mellitus /20/2025 2:30 PM EDTAncillary [place] [address] Screening, , for anatomic survey ([facility])07/15/2025linisync Result Encounter NOMS External Department Unsolicited Nathan Pop, DO 06/25/2025[place] [address] Nathan Pop, DO 06/22/2025 2:10 [place] [address] Nathan Pop DO Sinusitis, unspecified chronicity, unspecified location (Primary Dx); Second trimester ([facility]); 17 weeks gestation of ([facility]); Screening, , for anatomic survey ([facility])06/22/2025External Result Encounter NOMS External Department Unsolicited Nathan Pop DO 06/22/2025amboo flowsheet [facility] [address] [place] [address] Nathan Pop DO from Last 3 Months Immunizations ImmunizationAdministration DatesNext DueDTP / HiB08/01/1996,1995, 1995DTaP, Hivaugzqyot96/08/2000,12/29/1997HPV, Tfkzbaojvnai34/17/2014, 05/04/2014,2014Hep A, Adult09/11/2014,2014Hep B, Adolescent or Nlrwralca34/06/1996,1995,1995IPV05/03/2000Influenza, seasonal, injectable, preservative free09/11/2014MMR05/03/2000,08/01/1996Meningococcal MCP5F2504/03/2007OPV08/01/1996,1995,1995Tdap2014 Family History Medical HistoryRelationNameCommentsAnemiaFatherColon cancerFatherCancerMaternal GrandfatherbutchHypertensionMaternal GrandfatherbutchBreast cancerMaternal GrandmotherHypertensionMotherdarleneColon cancerPaternal GrandfatherRelationName StatusCommentsFatherDeceasedMaternal GrandfatherbutchMaternal GrandmotherMother darleneAlivePaternal GrandfatherPaternal GrandmotherAlive Social History Tobacco UseTypesPacks/DayYears UsedDateSmoking Tobacco: NeverSmokeless Tobacco: Never Tobacco Cessation:Counseling Given: Not Answered Alcohol UseStandard Drinks/WeekCommentsNever0 (1 standard drink = 0.6 oz pure alcohol)caffeine: 1-2 cups per day, coffee and sdlM2804 Health LiteracyAnswer Date RecordedHow often do you need to have [...] relatives?Once a week12/29/2024How often do you attend mandaen or worship services?Patient fvxdlyct35/03/2025Do you belong to any clubs or organizations such as mandaen groups, unions, fraternal or athletic leodan ups, or school groups?No12/29/2024How often do you attend meetings of the clubs or organizations you belong to?Patient jmaamlnc75/03/2025re you , , , , never , [...] hard at all12/29/2024PHQ-2AnswerDate RecordedPatient Health Questionnaire-2 Score0 07/30/2025FinGood [facility] - Occupational Stress QuestionnaireAnswerDate RecordedDo you feel stress - tense, restless, nervous, or anxious, or unable to sleep at night because yourmind is troubled all the time - these days?Only a hfsyqo8812/29/2024Exercise Vital SignAnswerDate Recorded On average, how many [...] steady place to sleep or slept in shandonelter (including now)?No09/19/2023Housing Stability Vital SignAnswerDate RecordedIn the last 12 months, was there a time when you were not able to pay the mortgage or rent on time?No12/29/2024Number of Times Moved in the Last YearNot on file12/29/2024t any time in the past 12 months, were you homeless or living in a fdc (including now)?No12/29/2024 EducationAnswerDate RecordedWhat is the highest level of school you have completed or the highest degree you have received?High school hvojkljm89/29/2023 Estimated Date of RvmqtokeVtnzrisdYxa99/03/2026ased on last menstrual period of 02/21/2025Sex and Gender InformationValueDate RecordedSex Assigned at BirthNot on fileLegal KssEkhfak27/15/2023 7:18 PM EDTGender IdentityNot on file Sexual OrientationNot on 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 Not on fileNot on fileNot on file Last Filed Vital Signs Vital SignReadingTime TakenCommentsBlood Dqmcxehv114/8010 4:04 PM EDT Crwcj453007/30/2025 3:36 PM RIGQffwanpqlum48.2 ??C (97.1 ??F)07/30/2025 3:36 PM EDTRespiratory Bggj468712/23/2022 4:16 PM ESTOxygen Uvqwwxdltf08%07/30/2025 3:36 PM EDTInhaled Oxygen Concentration--Pupcju81.8 kg (162 lb 12.8 oz)09/16/2025 4:04 PM DZWTxzyck178.5 cm (5' 2 )07/30/2025 3:36 PM EDTBody Mass Index29.78 07/30/2025 3:36 PM EDT Plan of Treatment DateTypeDepartmentCare Team (Latest Contact Info)Dtytktdlnmu21/05/2025 3:00 PM ESTRoutine [facility] [address] [place] [address] Nathan Pop, DO [address] [place] [address] Health MaintenanceDue DateLast DoneCommentsInfluenza Vaccine (#1)07/27/2025 09/11/2014Pap Smear7008/18/2024, 08/15/2023, 06/20/2022, Additional history existsCervical Cancer Msnhrhuem03/09/2028HPV/Aibhcv62 Procedures Procedure NamePriorityDate/TimeAssociated DiagnosisCommentsPOCT URINALYSIS QMWJVQYBIxsbygr91/22/2025 4:09 PM EDT 29 weeks gestation of ([facility]) Third trimester ([facility]) ALL CBC WITH AUTO CCPRYddequh58/09/2025 5:15 PM EDT MHPT WAWQZYZCDSQmvguiu66/09/2025 5:15 PM EDT [facility] KSCJOpobubp17/09/2025 5:15 PM EDT SRM[facility] PROTHROMBIN TIME INR W/O QRUFCpgsyxy98/09/2025 5:15 PM EDT [facility] PIVQfyuutm38/09/2025 5:15 PM EDT [facility] JHXShnqjzx12/09/2025 5:15 PM EDT ALL URIC SIEBPnebtsl87/09/2025 5:15 PM EDT TBH EIBJZOXBLDMriyywz16/09/2025 5:15 PM EDT ALL GAZCmrsaoz25/09/2025 5:15 PM EDT TB[facility] URINE T PROTEIN CREAT TMDBJNfnytmk41/09/2025 5:05 PM EDT POCT URINALYSIS QOGBOPWYIeghubq83/09/2025 4:26 PM EDT 27 weeks gestation of ([facility]) TBH TOTAL PROTEIN 24 HOUR XJJLQCurndjc04/04/2025 8:00 AM EDT US OB BPP W NON-HRWCKE2108/27/2025 6:02 PM EDT TB[facility] URINE T PROTEIN CREAT DXYCXTeyobui46/02/2025 5:50 PM EDT [facility] BHCYbrhtxm20/02/2025 5:00 PM EDT [facility] HPCAYrtlvle89/02/2025 5:00 PM EDT [facility] PROTHROMBIN TIME INR W/O AKHCAyswrtz74/02/2025 5:00 PM EDT ALL CUICezrvzn43/02/2025 5:00 PM EDT [facility] DADVldhmxe21/02/2025 5:00 PM EDT ALL URIC JHNLTdprizp04/02/2025 5:00 PM EDT TBH SMTKFJXTEZLsdaynw98/02/2025 5:00 PM EDT ALL TCPWcjiwca21/02/2025 5:00 PM EDT ALL CBC WITH AUTO NWAYLxqvmpr52/02/2025 5:00 PM EDT POCT URINALYSIS LLNHWJJVDvdiutu25/02/2025 3:53 PM EDT 26 weeks gestation of ([facility]) URINE CULTURE, XAHDVQDVdxdims94/30/2025 8:10 AM EDT POCT URINALYSIS DXFNBXYYFfdnhjh52/17/2025 2:39 PM EDT 24 weeks gestation of ([facility]) Second trimester ([facility]) US OB LIMITED 1+ FXGYUFJTfazhbl39/17/2025 2:22 PM EDT Encounter for follow-up ultrasound of anatomy ([facility]) AFP, SERUM, OPEN SPINA KQAWXGQyrnfrl67/20/2025 5:07 PM EDT POCT URINALYSIS GCGFGMBFUfruzds30/20/2025 3:50 PM EDT 20 weeks gestation of ([facility]) Second trimester ([facility]) US OB 14+ WEEKS ANATOMY WXRFMjgbeho32/20/2025 3:26 PM EDT Screening, , for anatomic survey ([facility]) RECURRENT VAGINITIS (HTRX)Iyegbby5806/22/2025 4:25 PM EDT POCT URINALYSIS ZYRPETJARjgyhwm86/28/2025 2:39 PM EDT Second trimester ([facility]) 17 weeks gestation of ([facility]) PAP TPGVDFkjkoqz56/23/2024 12:00 AM EDTTHINPREP PAP AND HPV MRNA E6/E7 W/RFL HPV 16,18/99Jqvablg48/09/2023 4:00 PM EDT Well woman exam with routine gynecological exam from Last 3 Months or Most Recently Relevant to Health Maintenance Results * POCT urinalysis dipstick manually resulted (09/16/2025 4:09 PM EDT) Only the most recent of6 resultswithin the time period is included. ComponentValueRef RangeTest MethodAnalysis TimePerformed AtPathologist Signature Color, UAYellowClarity, UAClearGlucose, UANegativeNegative - 2000(110) ++++ mg/dLBilirubin, UANegativeNegative - 4(70) +++ mg/dLKetones, UANegativeNegative - 160(16) ++++ mg/dLSpec Grav, UA1.0101 - 1.03Blood, UANegativeNegative - 50 Teodoro/mcLpH, UA6.05 - 9Protein, UANegativeNegative - 2000(20) ++++ mg/dL Urobilinogen, UA1.00.2 - 12 mg/dLLeukocytes, UANegativeNegative - 500+++ Robinson/mcL Nitrite, UANegativeNegative - PositiveSpecimen (Source)Anatomical Location / LateralityCollection Method / VolumeCollection TimeReceived HcmyWukze33/22/2025 4:09 PM EDT Narrative Authorizing ProviderResult TypeResult StatusCorepearl Pop DOPOINT OF CARE TEST ENTER/EDIT ORDERABLESFinal Result * (ABNORMAL) TBH CREATININE (09/03/2025 5:15 PM EDT) Only the most recent of2 resultswithin the time period is included. ComponentValueRef RangeTest MethodAnalysis TimePerformed AtPathologist Signature CREATININE0.42(L)0.55 - 1.02 mg/dLTBHTBH EGFR-AF SIERRA LEONEAN>60>=60 mL/min/1.73m 2 TBHTBH EGFR-NON AF SIERRA LEONEAN>60>=60 mL/min/1.73m 2TBHSpecimen (Source)Anatomical Location / LateralityCollection Method / VolumeCollection TimeReceived Time 09/03/2025 5:15 PM EDT1 5:21 PM EDT Narrative CLINISYNC - 09/03/2025 5:40 PM EDT Authorizing ProviderResult TypeResult StatusCorey Kiesha DOCLINISYNCFinal Result Performing OrganizationAddressCity/State/ZIP CodePhone Number CLINISYNC [facility]H * [facility] PROTHROMBIN TIME INR W/O COUM (09/03/2025 5:15 PM EDT) Only the most recent of2 resultswithin the time period is included. ComponentValueRef RangeTest MethodAnalysis TimePerformed AtPathologist Signature PROTHROMBIN TIME9.89.0 - 11.6 secTBHTBH INR<0.93TBHComment: DESIRED INR: 2.0-3.0 CONDITIONS NOT LISTED BELOW 2.5-3.5 FOR PROSTHETIC HEART VALVE REPLACEMENT 2.5-3.5 RECURRENT THROMBOSIS Specimen (Source)Anatomical Location / LateralityCollection Method / Volume Collection TimeReceived Time09/03/2025 5:15 PM EDT1 5:21 PM EDT Narrative CLINISYNC - 09/03/2025 5:45 PM EDT Authorizing ProviderResult TypeResult StatusCorey Kiesha DOCLINISYNCFinal Result Performing OrganizationAddressCity/State/ZIP CodePhone Number CLINISYNC TB * (ABNORMAL) MHPT FIBRINOGEN (09/03/2025 5:15 PM EDT)ComponentValueRef RangeTest MethodAnalysis TimePerformed AtPathologist PfkzggpglJBCONIPJTB539(H)200 - 400 mg/dLTBHSpecimen (Source)Anatomical Location / LateralityCollection Method / VolumeCollection TimeReceived Time09/03/2025 5:15 PM EDT1 5:21 PM EDT Narrative CLINISYNC - 09/03/2025 5:45 PM EDT Authorizing ProviderResult TypeResult StatusCorey Kiesha DOCLINISYNCFinal Result Performing OrganizationAddressCity/State/ZIP CodePhone Number CLINISYNC TB * [facility] AST (09/03/2025 5:15 PM EDT) Only the most recent of2 resultswithin the time period is included. ComponentValueRef RangeTest MethodAnalysis TimePerformed AtPathologist Signature ASPARTATE AMINO [id number] - 37 U/LTBHSpecimen (Source)Anatomical Location / LateralityCollection Method / VolumeCollection TimeReceived Time09/03/2025 5:15 PM EDT1 5:21 PM EDT Narrative CLINISYNC - 09/03/2025 5:40 PM EDT Authorizing ProviderResult TypeResult StatusCorey Kiesha DOCLINISYNCFinal Result Performing OrganizationAddressCity/State/ZIP CodePhone Number CLINISYNC TB * [facility] APTT (09/03/2025 5:15 PM EDT) Only the most recent of2 resultswithin the time period is included. ComponentValueRef RangeTest MethodAnalysis TimePerformed AtPathologist Signature PARTIAL THROMBOPLASTIN TIME26.122.3 - 36.2 secTBHSpecimen (Source)Anatomical Location / LateralityCollection Method / VolumeCollection TimeReceived Time 09/03/2025 5:15 PM EDT1 5:21 PM EDT Narrative CLINISYNC - 09/03/2025 5:45 PM EDT Authorizing ProviderResult TypeResult StatusCorey Kiesha DOCLINISYNCFinal Result Performing OrganizationAddressCity/State/ZIP CodePhone Number CLINISYNC TBH * [facility] ALT (09/03/2025 5:15 PM EDT) Only the most recent of2 resultswithin the time period is included. ComponentValueRef RangeTest MethodAnalysis TimePerformed AtPathologist Signature ALANINE QNNGHKNFHRABVNTC9832 - 59 U/LTBHSpecimen (Source)Anatomical Location / LateralityCollection Method / VolumeCollection TimeReceived Time09/03/2025 5:15 PM EDT1 5:21 PM EDT Narrative CLINISYNC - 09/03/2025 5:40 PM EDT Authorizing ProviderResult TypeResult StatusCorey Kiesha DOCLINISYNCFinal Result Performing OrganizationAddressCity/State/ZIP CodePhone Number [facility] * ALL URIC ACID (09/03/2025 5:15 PM EDT) Only the most recent of2 resultswithin the time period is included. ComponentValueRef RangeTest MethodAnalysis TimePerformed AtPathologist Signature URIC ACID3.52.6 - 6.0 mg/dLTBHSpecimen (Source)Anatomical Location / Laterality Collection Method / VolumeCollection TimeReceived Time09/03/2025 5:15 PM EDT 09/03/2025 5:21 PM EDT Narrative CLINISYNC - 09/03/2025 5:40 PM EDT Authorizing ProviderResult TypeResult StatusCorey Kiesha DOCLINISYNCFinal Result Performing OrganizationAddressCity/State/ZIP CodePhone Number [facility] * (ABNORMAL) ALL CBC WITH AUTO DIFF (09/03/2025 5:15 PM EDT) Only the most recent of2 resultswithin the time period is included. ComponentValueRef RangeTest MethodAnalysis TimePerformed AtPathologist Signature TBH WBC11.4(H)4.0 - 11.0 10 3/uLTBHTBH RBC3.87(L)4.20 - 5.40 10 6/uLTBHTBH HGB 11.3(L)12.0 - 16.0 g/dLTBHTBH HCT34.5(L)36.0 - 48.0 %TBHTBH MCV89.181.0 - 99.0 fLTBHTBH MCH29.226.7 - 34.0 pgTBHTBH MCHC32.829.9 - 35.2 g/dLTBHTBH RDW13.611.0 - 15.0 %TBHTBH YVE741357 - 450 10 3/uLTBHTBH MPV9.89.5 - 13.5 fLTBHNEUTROPHILS PERCENT AUTO66.243.0 - 75.0 %TBHLYMPHOCYTES PERCENT AUTO20.520.5 - 60.0 %TBH MONOCYTES PERCENT AUTO7.41.7 - 12.0 %TBHTBH EO %1.60.9 - 7.0 %TBHBASOPHILS PERCENT AUTO0.60.2 - 2.0 %TBHIMMATURE GRANULOCYTES PCT AUTO3.7(H)0.0 - 0.5 %TBH NEUTROPHILS ABSOLUTE AUTO7.5(H)1.4 - 6.5 10 3/uLTBHLYMPHOCYTES ABSOLUTE AUTO2.3 1.2 - 3.8 10 3/uLTBHMONOCYTES ABSOLUTE AUTO0.80.3 - 0.8 10 3/uLTBHTBH EO #0.20.0 - 0.7 10 3/uLTBHBASOPHILS ABSOLUTE AUTO0.10.0 - 0.1 10 3/uLTBHIMMATURE GRANULOCYTES ABS AUTO0.42(H)0.00 - 0.03 10 3/uLTBHSpecimen (Source)Anatomical Location / LateralityCollection Method / VolumeCollection TimeReceived Time 09/03/2025 5:15 PM EDT1 5:21 PM EDT Narrative CLINISYNC - 09/03/2025 5:45 PM EDT Authorizing ProviderResult TypeResult StatusCorey Kiesha DOCLINISYNCFinal Result Performing OrganizationAddressCity/State/ZIP CodePhone Number [facility] * ALL BUN (09/03/2025 5:15 PM EDT) Only the most recent of2 resultswithin the time period is included. ComponentValueRef RangeTest MethodAnalysis TimePerformed AtPathologist Signature BLOOD UREA NITROGEN8.07.0 - 18.0 mg/dLTBHSpecimen (Source)Anatomical Location / LateralityCollection Method / VolumeCollection TimeReceived Time09/03/2025 5:15 PM EDT1 5:21 PM EDT Narrative CLINISYNC - 09/03/2025 5:40 PM EDT Authorizing ProviderResult TypeResult StatusCorey Kiesha DOCLINISYNCFinal Result Performing OrganizationAddressCity/State/ZIP CodePhone Number CLINISYNC [facility] * (ABNORMAL) [facility] URINE T PROTEIN CREAT RATIO (09/03/2025 5:05 PM EDT) Only the most recent of2 resultswithin the time period is included. ComponentValueRef RangeTest MethodAnalysis TimePerformed AtPathologist Signature TOTAL PROTEIN URINE RANDOM<6.0<=11.9 mg/dLTBHCREATININE URINE RANDOM<13.00(L) 20.00 - 300.00 mg/dLTBHSpecimen (Source)Anatomical Location / Laterality Collection Method / VolumeCollection TimeReceived Time09/03/2025 5:05 PM EDT 09/03/2025 5:21 PM EDT Narrative [facility] - 09/03/2025 5:40 PM EDT Authorizing ProviderResult TypeResult StatusCorey Kiesha DOCLINISYNCFinal Result Performing OrganizationAddressCity/State/ZIP CodePhone Number [facility] * (ABNORMAL) TBH TOTAL PROTEIN 24 HOUR URINE (08/29/2025 8:00 AM EDT)Component ValueRef RangeTest MethodAnalysis TimePerformed AtPathologist SignatureTOTAL PROTEIN URINE EASRKL79.6(H)<=11.9 mg/dLTBHTOTAL VOLUME 24 HOUR HMJIX364jE/24hr TBHTBH TOTAL PROTEIN 24 HOUR GLBEU757.6<=149.1 mg/24hrTBHSpecimen (Source) Anatomical Location / LateralityCollection Method / VolumeCollection Time Received Time08/29/2025 8:00 AM EDT1 10:35 AM EDT Narrative CLINISYNC - 08/29/2025 12:08 PM EDT Authorizing ProviderResult TypeResult StatusGeneric External Data Provider CLINISYNCFinal ResultPerforming OrganizationAddressCity/State/ZIP CodePhone Number [facility] * US OB BPP W NON-STRESS (08/27/2025 6:02 PM EDT)Anatomical Region LateralityModalityOtherSpecimen (Source)Anatomical Location / Laterality Collection Method / VolumeCollection TimeReceived Time08/27/2025 6:02 PM EDT Narrative 08/27/2025 6:05 PM EDT [facility] ?[address] ? [place] [address] ? Ultrasound Report ? Signed ? Patient: MCCONEGLY,DRISS M ?MR#: [id number] ?? : 1995 ?Acct:[id number] ?? Age/Sex: 30 / F ?ADM Date: ?? Loc: [facility] ??250-1 ? Attending Dr: KUNAL HYATT M.D. ? Ordering Physician: Steph Keane ?? Date of Service: 08/27/25 ?? Procedure(s): US OB BPP w non-stress ?? Accession Number(s): [id number] ? cc: Steph Keane; Yomaira BELTRAN ? [facility] ? [address] ? [place] [address] ? Patient Name: ?? DRISS GAMA ? MRN: [facility]:[id number] ? date: 1995 ?Sex: F ?? Assigned Patient Location: LAB ?? Current Patient Location: LAB ?? Accession/Order Number: [id number] ?? Exam Date: 08/27/2025 ??17:37 ?Report Date: 08/27/2025 ??18:02 ? At the request of: ?? STEPH ??ELSA ? Procedure: ??US OB BPP w non-stress ? Ultrasound biophysical profile ? HISTORY: Increased blood pressure ? Adequate breathing movement, gross body movement, tone and ?? amniotic fluid volume for total score of 8 out of 8. ??The amniotic fluid index ?? is 11.7cm within normal limits. ??The heart rate 131 bpm. ? US/US OB BPP w non-stress ?? IMPRESSION: Adequate ultrasound biophysical profile ? Impression dictated by: Jp Morillo M.D. ??08/27/2025 6:02 PM ? Dictation Location: [place] [address] ? Electronically authenticated by: [id number] ??Y ?? Date: 08/27/2025 ??18:02 ? Dictated By: ?Jp Morillo D.O. ? Signed By: ?08/27/25 1805 ? DD/ 1802 ? TD/TT: ? Call Center Support Consultant: Procedure Note Radiology, Radiologist, MD - 08/27/[address] [address] Ultrasound Report Signed Patient: DRISS GAMA [facility]#: [id number] : 1995Acct:[id number] Age/Sex: 30 / FADM Date: Loc: [facility] 250-1 Attending : KUNAL HYATT M.D. Ordering Physician: Steph Keane Date of Service: 08/27/25 Procedure(s): US OB BPP w non-stress Accession Number(s): [id number] cc: Steph Keane; Yomaira BELTRAN [place] [address] Patient Name: DRISS GAMA MRN: [facility]:[id number] date: 1995 Sex: F Assigned Patient Location: LAB Current Patient Location: LAB Accession/Order Number: [id number] Exam Date: 08/27/2025 17:37 Report Date: 08/27/2025 [...] Morillo M.D. 08/27/2025 6:02 PM Dictation Location: [place] [address] Electronically authenticated by: [id number] Y Date: 8:02 Dictated By: Jp Morillo D.O. Signed By:08/27/251804 DD/ 01 TD/TT: Call Center Support Consultant: Authorizing ProviderResult TypeResult StatusSteph Keane NPCLINISYNC IMAGING Final Result * ALL LDH (08/27/2025 5:00 PM EDT)ComponentValueRef RangeTest MethodAnalysis TimePerformed AtPathologist SignatureLACTATE HJUGZFYTZZBDU82527 - 234 U/LTBH Specimen (Source)Anatomical Location / LateralityCollection Method / Volume Collection TimeReceived Time08/27/2025 5:00 PM EDT1 5:01 PM EDT Narrative CLINISYNC - 08/27/2025 5:19 PM EDT Authorizing ProviderResult TypeResult StatusClintmelissa Keane NPCLINISYNCFinal ResultPerforming OrganizationAddressCity/State/ZIP CodePhone Number [facility] * URINE CULTURE, ROUTINE (08/25/2025 8:10 AM EDT)ComponentValueRef RangeTest MethodAnalysis TimePerformed AtPathologist SignatureURINE CULTURE, ROUTINE ??Urine Culture, Routine TBHURINE CULTURE, ROUTINEMixed urogenital floraTBHURINE CULTURE, VQBGFFI15,000- 50,000 colony forming units per mLTBHURINE CULTURE, ROUTINEPerformed at: [facility] LabMary Free Bed Rehabilitation HospitalTBHURINE CULTURE, RUSUOHB[address] [place], [place] [address] URINE CULTURE, ROUTINELab Director: Cm Sandoval PhD, Phone: [phone] Specimen (Source)Anatomical Location / LateralityCollection Method / Volume Collection TimeReceived Time08/25/2025 8:10 AM EDT08/25/2025 8:30 AM EDT Narrative TRICIATERRY - 08/26/2025 10:07 PM EDT Authorizing ProviderResult TypeResult StatusGeneric External Data ProviderLAB BLOOD ORDERABLESFinal ResultPerforming OrganizationAddressCity/State/ZIP Code Phone Number TRICIAOH TB * US OB limited 1+ fetuses (08/12/2025 2:22 PM EDT)Anatomical RegionLaterality ModalityBodyUltrasoundSpecimen (Source)Anatomical Location / Laterality Collection Method / VolumeCollection TimeReceived Time08/12/2025 5:01 PM EDT Impressions 08/13/2025 7:46 AM EDT Appropriate cardiac and outflow tract anatomy, appropriate for this age. TRANSCRIBED BY: ? ELECTRONICALLY SIGNED BY: Junito Alas MD Narrative [...] BY: ELECTRONICALLY SIGNED BY: Junito Alas MD Authorizing ProviderResult TypeResult StatusCorey Kiesha DOIMG OB US PROCEDURES Final Result * AFP, SERUM, OPEN SPINA BIFIDA (07/15/2025 5:07 PM EDT)ComponentValueRef Range Test MethodAnalysis TimePerformed AtPathologist SignatureRESULTSReport.TBHTEST RESULTS:*Screen Negative*.TBHGEST. AGE ON COLLECTION DATE20.6. weeksTBHGESTAT. AGE BASED ONLMP.TBHComment: Recalculations are not recommended when gestational dating by LMP and ultrasound are within 10 days. MATERNAL AGE AT EDD30.7. yrTBHRACECaucasian.OQMTLENWU842. lbsTBHINSULIN DEP DIABETESNo.TBHMULTIPLE GESTATIONNo.TBHAFP VALUE59.2. ng/mLTBHAFP MOM0.95.TBHOSBR RISK 1 [id number].TBHINTERPRETATIONComment.TBHComment: Interpretation: Screen Negative This result is screen [...] Genetic Customer Services to discuss available options. ??The [employer] recommends amniocentesis be offered to women age 35 and older. COMMENT:Comment.TBHComment: Amy Ramos, Ph.D., [facility] Director References: Available Upon Request. Multiples Of Median Cutoffs ?For AFP Elevations Hsieh ?? 2.5 ? Black ?2.8 IDD ? 2.0 ? Twins ?4.5 ?Abbreviation Definitions IDD - Insulin Dep Diabetes OSBR - Open Spina Bifida Risk For further inquiries contact [email or web address] [facility] at [phone]. This test was developed and its performance characteristics determined by leemail. It has not been cleared or approved by the Food and Drug Administration. Performed at: ??[facility] - [facility] [place], [place] ??[id number] Bowling Ball Finisher: Dona Justin [facility], Phone: ??[phone] Specimen (Source)Anatomical Location / LateralityCollection Method / Volume Collection TimeReceived Time07/15/2025 5:07 PM EDT07/15/2025 5:10 PM EDT Narrative [facility] - 07/18/2025 1:07 AM EDT N N LMP [id number] 2 17 N 1 Y 146 N N N N N White/ Authorizing ProviderResult TypeResult StatusGeneric External Data ProviderLAB BLOOD ORDERABLESFinal ResultPerforming OrganizationAddressCity/State/ZIP Code Phone Number [facility] * OB 14+ weeks anatomy scan (07/15/2025 3:26 PM EDT)Anatomical Region LateralityModalityBodyUltrasoundSpecimen (Source)Anatomical Location / LateralityCollection Method / VolumeCollection TimeReceived Time07/16/2025 8:08 AM EDT Narrative 07/16/2025 8:08 AM EDT EXAM: US OB 14+ WEEKS ANATOMY SCAN HISTORY: ?? anatomy. COMPARISON: ??Ob ultrasound 05/01/2025. TECHNIQUE: Two-dimensional transabdominal grayscale ultrasound imaging of the pelvis was performed. FINDINGS: Gestation: Single Presentation: ??Breech ?? Cardiac Activity: ??149 beats per minute Placental Location: ??Anterior with no sonographic abnormalities identified. Distance from Placental Tip to Cervix: ??2.7 cm Cervical Length: ??4.4 cm Amniotic Fluid: Appears adequate MEASUREMENTS: BPD: ??4.9 cm ??EGA: ??20 weeks 5 days HC: ??18.3 cm ??EGA: ??20 weeks 5 days AC: ??16.1 cm ??EGA: ??21 weeks 2 days FL: ??3.3 cm ??EGA: ??20 weeks 2 days HC/AC Ratio: ??1.13 The gestational age by today's ultrasound is 20 weeks 5 days (+/- 10 days gestation). Estimated Weight: ??378 grams, +/- 57 grams ( 0 lb 13 oz). Weight Percentile for gestational age: ??58 % ANATOMY C-Spine: Unremarkable T-Spine: Unremarkable L-Spine: Unremarkable Sacrum: Unremarkable Four Chamber Heart: Unremarkable LVOT: ??Not visualized RVOT: ??Not visualized Stomach: Unremarkable Kidneys: Unremarkable Bladder: Unremarkable [...] anatomy with non-visualization of the outflow tracts. ??A short-term follow-up ultrasound is recommended. Interpreted by: Electronically signed by TRAVIS RUEDA II, ?? , PHD at 16-Jul-2025 08:07:07 AM [facility] Procedure Note Travis Rueda MD - [...] TRAVIS RUEDA II, MD, PHD 08:07:07 AM [facility] Authorizing ProviderResult TypeResult StatusCorey Kiesha [facility] OB US PROCEDURES Final Result * (ABNORMAL) RECURRENT VAGINITIS (HTRX) (06/22/2025 4:25 PM EDT)ComponentValue Ref RangeTest MethodAnalysis TimePerformed AtPathologist SignatureATOPOBIUM IVXJJLV920.961 - 24.689 ppm06/24/2025 6:19 AM EDTHealth[facility] at [facility] ATOPOBIUM VAGINAENot Lkfncqma92.961 - 24.689 ppm06/24/2025 6:19 AM EDT [facility],3 (BACTERIAL VAGINOSIS ASSOCIATED BACTERIA 2, 3); MOBILUNCUS ERD396.961 - 24.689 ppm06/24/2025 6:19 AM EDTHealthTrackRx at [facility] HospitalBVAB 2,3 (BACTERIAL VAGINOSIS ASSOCIATED BACTERIA 2, 3); MOBILUNCUS SPP Not Upnezhct39.961 - 24.689 ppm06/24/2025 6:19 AM EDTHealthTrackRx at LabPort RADHA ALBICANS, PARAPSILOSIS, CAFWUQGYMF900.000 - 30.347 ppm06/24/2025 6:19 AM EDTHealth[facility]Rx at [facility]CANDIDA ALBICANS, PARAPSILOSIS, TROPICALISNot Ephxcgpc46.000 - 30.347 ppm06/24/2025 6:19 AM EDTHealthTrackRx at [facility] RADHA QFGSLEQQ578.000 - 31.618 ppm06/24/2025 6:19 AM EDTHealth[facility]Rx at [facility] HospitalCANDIDA GLABRATANot Uspispbq39.000 - 31.618 ppm06/24/2025 6:19 AM EDT [facility] HospitalCANDIDA MEVRWY061.000 - 30.873 ppm06/24/2025 6:19 AM EDTHealthTrackRx at [facility] HospitalCANDIDA KRUSEINot Ymlikuxj22.000 - 30.873 ppm 06/24/2025 6:19 AM EDTHealthTrackRx at [facility] HospitalCHLAMYDIA IOORYAOJEXI704.000 - 31.586 ppm06/24/2025 6:19 AM EDTHealthTrackRx at [facility] HospitalCHLAMYDIA TRACHOMATIS Not Pvfrnkoh07.000 - 31.586 ppm06/24/2025 6:19 AM EDT[facility] GARDNERELLA GLLQMNMNO22.967(A)19.961 - 24.689 ppm06/24/2025 6:38 AM EDT [facility] HospitalGARDNERELLA VAGINALISDetected(A)19.961 - 24.689 ppm 06/24/2025 6:38 AM EDTHealthTrackRx at [facility] HospitalMEGASPHAERA (TYPES 1, 2)019.961 - 24.689 ppm06/24/2025 6:19 AM EDTHealthTrackRx at [facility]MEGASPHAERA (TYPES 1, 2)Not Nvokvafy27.961 - 24.689 ppm06/24/2025 6:19 AM EDTHealthTrackRx at [facility] IndianapolisNEISSERIA XPSLBRFGDYP912.000 - 32.587 ppm06/24/2025 6:19 AM EDT [facility] IndianapolisNEISSERIA GONORRHOEAENot Arnbzmbh43.000 - 32.587 ppm 06/24/2025 6:19 AM EDTHealthTrackRx at Lab[facility] IndianapolisTRICHOMONAS OARMXDOHZ032.000 - 31.995 ppm06/24/2025 6:19 AM EDTHealthTrackRx at [facility] IndianapolisTRICHOMONAS VAGINALIS Not Fyoxmrvw64.000 - 31.995 ppm06/24/2025 6:19 AM EDT[facility] MYCOPLASMA UQGIKNKKDW726.961 - 24.689 ppm06/24/2025 6:19 AM EDTHealthTrackRx at Grace HospitalMYCOPLASMA GENITALIUMNot Avdfoznw70.961 - 24.689 ppm06/24/2025 6:19 AM EDTHealthTrackRx at LabPortSpecimen (Source)Anatomical Location / LateralityCollection Method / VolumeCollection TimeReceived TimeTissue 06/22/2025 4:25 PM EDT06/24/2025 1:21 AM EDT Narrative Authorizing ProviderResult TypeResult StatusCorey Kiesha DOLAB BLOOD ORDERABLES Final ResultPerforming OrganizationAddressCity/State/ZIP CodePhone Number [facility] LabChrist[place] [phone] [address] [address] * Pap Smear (08/18/2024 12:00 AM EDT)Specimen (Source)Anatomical Location / LateralityCollection Method / VolumeCollection TimeReceived TimeSwabCervical swab / Unknown Narrative Authorizing ProviderResult TypeResult StatusFazio Nurse Noms Bcp ObLAB CYTOLOGY ORDERABLESFinal ResultPerforming OrganizationAddressCity/State/ZIP CodePhone Number EXTERNAL LAB * THINPREP PAP AND HPV MRNA E6/E7 W/RFL HPV 16,18/45 (09/03/2023 4:00 PM EDT) Narrative Authorizing ProviderResult TypeResult StatusAmy Brenda ANDERSON BLOOD ORDERABLES Final ResultPerforming OrganizationAddressCity/State/ZIP CodePhone Number EXTERNAL LAB from Last 3 Months or Most Recently Relevant to Health Maintenance Insurance Care Teams Team MemberRelationshipSpecialtyStart DateEnd Date Eliceo Beltran DO [address] [facility] [address] [place] [address] PCP - GeneralFamily Medicine02/14/24 Eliceo Beltran DO [address] [facility] [address] [place] [address] PCP - Medical [place] [employer]07/27/2412
--- OUTSIDE RECORDS SUMMARY | 2025-09-19 07:45 | XMS_ITS | Encounter Summary ---
Author Organization [facility] tem Address [id number] [address] [place] [address] Care Team Providers Care Diesel Dinkey Engineer Name Role Phone Cruz Rodríguez MD Primary Care Provider [phone] Encounter Details DateTypeDepartmentCare Team (Latest Contact Info)Gestvmmjkil98/22/2025Telephone Maternal- Medicine at [facility] [address] [facility] [place] [phone] Cha Harris, DIALLO Social History Tobacco UseTypesPacks/DayYears UsedDateSmoking Tobacco: NeverSmokeless Tobacco: NeverAlcohol UseStandard Drinks/WeekCommentsNo0 (1 standard drink = 0.6 oz pure alcohol)AUDIT-CAnswerDate RecordedQ1: How often do you have a drink containing alcohol?Never09/10/2025Q2: How many drinks containing alcohol do you have on a typical day when you are drinking?Patient does not drink09/10/2025Q3: How often do you have six or more drinks on one occasion?Never5ChildcareAnswer Date QkynimdrLlaqboeemGlvrhkq32/13/2019EmploymentAnswerDate RecordedEmployment Mgogcyn1605/08/2019Hunger ScreeningAnswerDate RecordedWithin the past 12 months we worried whether our food would run out before we got money to buy more.Never True09/10/2025Within the past 12 months the food we bought just didn't last and we didn't have money to get more.Never True09/10/2025Purpose - LifeAnswerDate RecordedPurpose and direction in qvafWbwvezt71/11/2021Estimated Date of MsyhndjgTjragjclKxy17/03/2026Based on last menstrual period of 02/21/2025 (Exact Date)Sex and Gender InformationValueDate RecordedSex Assigned at BirthNot on fileLegal QbgWyfwfw21/07/2019 2:55 PM ESTGender IdentityNot on fileSexual OrientationNot on filedocumented as of this encounter Miscellaneous Notes * [...] blood sugars next week. documented in this encounter Plan of Treatment DateTypeDepartmentCare Team (Latest Contact Info)Edyfidlmvzl79/10/2025 3:00 PM ESTTelemedicine Maternal- Medicine at [facility] [address] [place] [phone] Kayleigh Meza, FORREST [address] [address] 10/08/2025 8:00 AM ESTAppointment Maternal Medicine [place] [address] [facility] [address] [place] [address] documented as of this encounter Visit Diagnoses Not on filedocumented in this encounter Care Teams Team MemberRelationshipSpecialtyStart DateEnd Date Cruz Rodríguez MD [address] [place] [address] PCP - GeneralFamily Medicine12/02/18documented as of this encounter
--- OUTSIDE RECORDS SUMMARY | 2025-09-19 07:45 | XMS_ITS | Encounter Summary ---
Author Organization [facility] tem Address [id number] [address] [place] [address] Care Team Providers Care Dye House Helper Name Role Phone Cruz Rodríguez MD Primary Care Provider [phone] Encounter Details DateTypeDepartmentCare Team (Latest Contact Info)Iveaoljimfk00/23/2025Orders Only Maternal- Medicine at [facility] [address] [place] [phone] Camila Arciniega, LIFESTYLE COORDINATORLUDLOW HOSPITAL [address] [facility] [facility], [address] [place] [address] Essential hypertension affecting in third trimester Social [...] or more drinks on one occasion?Never5ChildcareAnswer Date XniqnpqaNcowkjnqnNlridko49/13/2019EmploymentAnswerDate RecordedEmployment Jiiufuk26/13/2019Hunger ScreeningAnswerDate RecordedWithin the past 12 months we worried whether our food would run out before we got money to buy more.Never True09/10/2025Within the past 12 months the food we bought just didn't last and we didn't have money to get more.Never True09/10/2025Purpose - LifeAnswerDate RecordedPurpose and direction in mwubSroeylh42/11/2021Estimated Date of BmkrmgojYiagwupbFqz01/03/2026Based on last menstrual period of 02/21/2025 (Exact Date)Sex and Gender InformationValueDate RecordedSex Assigned at BirthNot on fileLegal YmyQvfyji00/07/2019 2:55 PM ESTGender IdentityNot on fileSexual OrientationNot on filedocumented as of this encounter Plan of Treatment DateTypeDepartmentCare Team (Latest Contact Info)Lrhuxonogqa65/10/2025 3:00 PM ESTTelemedicine Maternal- Medicine at [facility] [address] [place] [address] Kayleigh Rizzo PA-C [address] [address] 10/08/2025 8:00 AM ESTAppointment Maternal Medicine [place] [address] [facility] [address] [place] [phone] documented as of this encounter Visit Diagnoses Diagnosis Essential hypertension affecting in third trimester documented in this encounter Care Teams Team MemberRelationshipSpecialtyStart DateEnd Date Cruz Rodríguez MD [address] [place] [address] PCP - GeneralFamily Medicine12/02/18documented as of this encounter
--- OUTSIDE RECORDS SUMMARY | 2025-09-19 07:45 | XMS_ITS | Encounter Summary ---
Author Organization [facility] tem Address [id number] [address] [place] [address] Care Team Providers Care Cutter And Edge Trimmer Name Role Phone Cruz Rodríguez MD Primary Care Provider Encounter Details DateTypeDepartmentCare Team (Latest Contact Info)Vwbmvdvudrg84/21/2025Orders Only Maternal- Medicine at [facility] [address] [place] [phone] Kayleigh Rizzo, PAAlbinC [address] [address] Essential hypertension affecting in third trimester Social [...] or more drinks on one occasion?Never5ChildcareAnswer Date CgmoynvcLlnbuphgbFaafxnf76/13/2019EmploymentAnswerDate RecordedEmployment Xmisfni0305/08/2019Hunger ScreeningAnswerDate RecordedWithin the past 12 months we worried whether our food would run out before we got money to buy more.Never True09/10/2025Within the past 12 months the food we bought just didn't last and we didn't have money to get more.Never True09/10/2025Purpose - LifeAnswerDate RecordedPurpose and direction in nioqMgzmkos00/11/2021Estimated Date of KcmquvmeKxdnabzmTfm35/03/2026Based on last menstrual period of 02/21/2025 (Exact Date)Sex and Gender InformationValueDate RecordedSex Assigned at BirthNot on fileLegal QnrLkdtsn13/07/2019 2:55 PM ESTGender IdentityNot on fileSexual OrientationNot on filedocumented as of this encounter Plan of Treatment DateTypeDepartmentCare Team (Latest Contact Info)Ljwniitvyqk04/10/2025 3:00 PM ESTTelemedicine Maternal- Medicine at [facility] [address] [place] [address] Kayleigh Rizzo PA-C [address] [address] 10/08/2025 8:00 AM ESTAppointment Maternal Medicine [place] [address] [facility] [address] [place] [phone] documented as of this encounter Visit Diagnoses Diagnosis Essential hypertension affecting in third trimester documented in this encounter Care Teams Team MemberRelationshipSpecialtyStart DateEnd Date Cruz Rodríguez MD [address] [place] [address] PCP - GeneralFamily Medicine12/02/18documented as of this encounter
--- OUTSIDE RECORDS SUMMARY | 2025-09-19 07:45 | XMS_ITS | Encounter Summary ---
Author Organization [employer] tem Address [id number] [address] [place] [address] Care Team Providers Care Pattern Lease Inspector Name Role Phone Cruz Rodríguez MD Primary Care Provider [phone] Encounter Details DateTypeDepartmentCare Team (Latest Contact Info)Vnqwbxmlhor35/16/2025Travel Social History Tobacco UseTypesPacks/DayYears UsedDateSmoking Tobacco: NeverSmokeless Tobacco: NeverAlcohol UseStandard Drinks/WeekCommentsNo0 (1 standard drink = 0.6 oz pure alcohol)AUDIT-CAnswerDate RecordedQ1: How often do you have a drink containing alcohol?Never09/10/2025Q2: How many drinks containing alcohol do you have on a typical day when you are drinking?Patient does not drink09/10/2025Q3: How often do you have six or more drinks on one occasion?Never09/10/2025hildcareAnswer Date HmgaoxspWttpzdcksKdoteye61/13/2019EmploymentAnswerDate RecordedEmployment Lixedui5005/08/2019Hunger ScreeningAnswerDate RecordedWithin the past 12 months we worried whether our food would run out before we got money to buy more.Never True09/10/2025Within the past 12 months the food we bought just didn't last and we didn't have money to get more.Never True09/10/2025Purpose - LifeAnswerDate RecordedPurpose and direction in aljfIghjrrs57/11/2021Estimated Date of FzgogqohGpdztwvvTyn82/03/2026Based on last menstrual period of 02/21/2025 (Exact Date)Sex and Gender InformationValueDate RecordedSex Assigned at BirthNot on fileLegal BuqAvcsvq48/07/2019 2:55 PM ESTGender IdentityNot on fileSexual OrientationNot on filedocumented as of this encounter Functional Status * AUDIT-C ScoreAnswerDate of UxvmxihopdSkmplg446/16/2025 10:17 AM Danae Salazar RN * QuestionAnswerDate [...] Plan of Treatment DateTypeDepartmentCare Team (Latest Contact Info)Lpbbcmkffan88/10/2025 3:00 PM ESTTelemedicine Maternal- Medicine at [facility] [address] [place] [address] Kayleigh Rizzo, FORREST [address] [address] 10/08/2025 8:00 AM ESTAppointment Maternal Medicine [place] [address] [facility] [address] [place] [address] documented as of this encounter Visit Diagnoses Not on filedocumented in this encounter Care Teams Team MemberRelationshipSpecialtyStart DateEnd Date Cruz Rodríguez MD [address] [place] [address] PCP - GeneralFamily Medicine12/02/18documented as of this encounter
--- OUTSIDE RECORDS SUMMARY | 2025-09-19 07:45 | XMS_ITS | Clinical Summary ---
Author Organization [employer] tem Address [id number] [address] [place] [address] Care Team Providers Care Impression Printer Name Role Phone Cruz Rodríguez MD Primary Care Provider [phone] Allergies No known active allergies Medications MedicationSigDispense QuantityRefillsLast FilledStart DateEnd DateStatus labetaloL (NORMODYNE) 100 mg tablet Take 2 tablets (200 mg total) by mouth 3 (three) times a day.Active PNV no.95-ferrous fumarate-FA () 28 mg iron- 800 mcg tablet Take 1 tablet by mouth in the morning.Active pen needle, diabetic (BD ULTRA-FINE REGGIE PEN NEEDLE) 32 gauge x 5/32 needle Indications:Diet controlled gestational diabetes mellitus (GDM) in second trimester,Essential hypertension affecting in third trimesterUse pen needles to give insulin. 100 each 5Active blood sugar diagnostic (glucose blood) strip 1 strip by other route in the morning and 1 strip at noon and 1 strip in the evening and 1 strip before bedtime.5Active insulin glargine-yfgn 100 unit/mL (3 mL) insulin pen Indications:Essential hypertension affecting in third trimesterPrime with 2 units and give 5 units every morning and 17 units subQ at bedtime. 15 mL 5Active rizatriptan PAPER MACHINE TENDER (MAXALT-PAPER MACHINE TENDER) 5 mg disintegrating tablet Dissolve 1 tablet (5 mg total) on tongue as needed. Discontinued() norethindrone ac-eth estradiol (MICROGESTIN 12/15) 1-20 mg-mcg per tablet Take 1 tablet by mouth in the evening.Discontinued () cholecalciferol, vitamin D3, (VITAMIN D3) 5,000 units capsule Take 1 capsule (5,000 Units total) by mouth in the morning. Discontinued() cyanocobalamin, vitamin B-12, (VITAMIN B-12) 1,000 mcg tablet extended release Take 1 tablet (1 mg total) by mouth in the morning. Discontinued() ASCORBIC ACID WITH ISAURO HIPS 500 MG tablet Take 2 tablets (1,000 mg total) by mouth in the morning. Discontinued() metoprolol succinate XL (TOPROL XL) 25 mg 24 hr tablet Take 1 tablet (25 mg total) by mouth in the morning.09/04/2025Discontinued () fluticasone propionate (FLONASE) 50 mcg/actuation nasal spray Administer 1 spray into each nostril in the morning.09/04/2025Discontinued () cetirizine (ZyrTEC) 10 mg tablet Take 1 tablet (10 mg total) by mouth in the morning.09/04/2025Discontinued () promethazine (PHENERGAN) 12.5 mg suppository Insert 1 suppository (12.5 mg total) into the rectum every 6 (six) hours as needed for nausea or vomiting.09/04/2025Discontinued() magnesium oxide (MAGOX) 400 mg tablet Take 1 tablet (400 mg total) by mouth in the morning.09/04/2025Discontinued () meloxicam (MOBIC) 15 mg tablet Take 1 tablet (15 mg total) by mouth in the morning.09/04/2025Discontinued () zvcawmipyo-ifrwfmw-odsceanr (FIORINAL) 50-325-40 mg per capsule Take 1 capsule by mouth every 4 (four) hours as needed for headaches.09/04/2025 Discontinued() insulin glargine-yfgn 100 unit/mL (3 mL) insulin pen Indications:Diet controlled gestational diabetes mellitus (GDM) in second trimester,Essential hypertension affecting in third trimesterPrime with 2 units and give 10 units subQ at bedtime. 15 mL Discontinued insulin glargine-yfgn 100 unit/mL (3 mL) insulin pen Indications:Essential hypertension affecting in third trimesterPrime with 2 units and give 13 units subQ at bedtime. 15 mL Discontinued insulin glargine-yfgn 100 unit/mL (3 mL) insulin pen Indications:Essential hypertension affecting in third trimesterPrime with 2 units and give 17 units subQ at bedtime. 15 mL Discontinued Active Problems ProblemNoted DateDiagnosed DateEssential hypertension affecting in third vtqzhiclk18/10/2025Insulin controlled gestational diabetes mellitus (GDM) in second fhunvcyvq92/26/2025Estimated Date of DeliveryCommentsYes 11/28/2025ased on last menstrual period of 02/21/2025 (Exact Date) Encounters DateTypeDepartmentCare NomwPphwhlcvlgy47/23/2025Orders Only Maternal- Medicine at [facility] [address] [place] [phone] Camila Arciniega, WHISKEY PROOF READER-PADDYM Essential hypertension affecting in third axmrryyet54/22/2025Telephone Maternal- Medicine at [facility] [address] [place] [address] Cha Harris, DIALLO 09/15/2025Orders Only Maternal- Medicine at [facility] [address] [place] [address] Kayleigh Rizzo, FORREST Essential hypertension affecting in third rivcsiged95/16/2025 11:00 AM EDTTelemedicine Maternal Medicine [place] [address] [address] Madhuri Monroy MD 28 weeks gestation of (Primary Dx); Insulin controlled gestational diabetes mellitus (GDM) in second trimester; Essential hypertension affecting in third /16/2025Orders Only Maternal- Medicine at [facility] [address] [place] [address] Zora Samuels, DIALLO Essential hypertension affecting in third trimester (Primary Dx); Insulin controlled gestational diabetes mellitus (GDM) in second trimester; Encounter for follow-up ultrasound of gobrgfy3009/10/20256027Wjyiru80/10/2025 3:00 PM EDTOffice Visit Maternal- Medicine at [facility] [address] [place] [address] Jean Carlos Pina MD Diet controlled gestational diabetes mellitus (GDM) in second trimester (Primary Dx); Essential hypertension affecting in third hjggtvfom02/08/2025Travel 09/01/2025Telephone Maternal- Medicine at [facility] [address] [place] [address] Cha Harris RN 08/24/2025 1:30 PM EDTSupport Visit Maternal- Medicine at [facility] [address] [place] [address] Teena Sarmiento RN Kerline Steiner, RAYNA Gestational diabetes mellitus (GDM) in second trimester, gestational diabetes method of control iavzaqkyyfg38/28/8942Pvrvqv09/27/3456Aiajqh34/26/2025bstract Maternal- Medicine at [place] [address] [place] [address] External, Scanning Provider 08/19/2025Orders Only Maternal- Medicine at [place] [address] [place] [address] Ref Prov, Not In System 08/18/2025bstract Maternal- Medicine at [place] [address] [place] [address] Madhuri Monroy MD 08/18/2025Orders Only Maternal- Medicine at [facility] [address] [place] [address] Khalida Garrett RN History of pre-eclampsia in prior , currently (Primary Dx)from Last 3 Months Family History Medical HistoryRelationNameCommentsAnemiaFatherColon cancerFatherCancerMaternal GrandfatherHypertensionMaternal GrandfatherBreast cancerMaternal Grandmother HypertensionMotherColon cancerPaternal GrandfatherRelationNameStatusComments FatherDeceasedMaternal GrandfatherMaternal GrandmotherMotherAlivePaternal Grandfather Social History Tobacco UseTypesPacks/DayYears UsedDateSmoking Tobacco: NeverSmokeless Tobacco: NeverAlcohol UseStandard Drinks/WeekCommentsNo0 (1 standard drink = 0.6 oz pure alcohol)AUDIT-CAnswerDate RecordedQ1: How often do you have a drink containing alcohol?Never09/10/2025Q2: How many drinks containing alcohol do you have on a typical day when you are drinking?Patient does not drink09/10/2025Q3: How often do you have six or more drinks on one occasion?Never5ChildcareAnswer Date NvksvvvtLypffzbvlGgkgooo68/13/2019EmploymentAnswerDate RecordedEmployment Ukizjqf9605/08/2019Hunger ScreeningAnswerDate RecordedWithin the past 12 months we worried whether our food would run out before we got money to buy more.Never True09/10/2025Within the past 12 months the food we bought just didn't last and we didn't have money to get more.Never True09/10/2025Purpose - LifeAnswerDate RecordedPurpose and direction in aapzQccqgkp73/11/2021Estimated Date of EbirspbvJradpowsKxw09/03/2026Based on last menstrual period of 02/21/2025 (Exact Date)Sex and Gender InformationValueDate RecordedSex Assigned at BirthNot on fileLegal DzfIhjlqw54/07/2019 2:55 PM ESTGender IdentityNot on fileSexual OrientationNot on file Last Filed Vital Signs Vital SignReadingTime TakenCommentsBlood Newzjbqb294/801 10:34 AM EDT Qgzyd10579/10/2025 2:48 PM EDTTemperature--Respiratory Fvqu841212/10/2018 11:10 AM ESTOxygen Xwfbdgtntd75%12/10/2018 11:10 AM ESTInhaled Oxygen Concentration-- Loispv94.6 kg (160 lb)09/10/2025 10:34 AM NHDHgzktx935.5 cm (5' 2.01 )09/04/2025 2:48 PM EDTBody Mass Index29.261 2:48 PM EDT Plan of Treatment DateTypeDepartmentCare Team (Latest Contact Info)Fnzippmvcoc19/10/2025 3:00 PM ESTTelemedicine Maternal- Medicine at [facility] [address] [place] [phone] Kayleigh Rizzo PA-C [address] [address] 10/08/2025 8:00 AM ESTAppointment Maternal Medicine [place] [address] [facility] [address] [place] [address] Health MaintenanceDue DateLast DoneCommentsDepression Dpbfqgggn40/08/2007dult BMI Follow Up Plan2013DTaP,Tdap and Td Vaccines (7 - Td or Tdap)2024 2014, 05/03/2000, 12/29/1997, Additional history existsInfluenza Vaccine /dult BMI Mnlknboqh47Tobacco Screening Pap Smear Medical Devices Not on file Procedures Procedure NamePriorityDate/TimeAssociated DiagnosisCommentsUS MFM COMPREHENSIVE ANATOMIC NMLUOLWflsxix61/16/2025 10:56 AM EDT History of pre-eclampsia in prior , currently GLUCOSE TOLERANCE, 3 ULBEIJvataad59/20/2025 GLUCOSE TOLERANCE, HGFOICXKlbdbcd41/20/2025 GLUCOSE TOLERANCE, 1 CCHOAooirgc47/20/2025 SECOND HOUR GLUCOSE TOLERANCE 100 GM JNSCAqjupqq03/20/2025 ULTRASOUND UDXNVJNvmrxed96/17/2025 3:39 PM EDTGLU 1H POST 50G LOADRoutine 08/12/2025 ULTRASOUND YAZORWCpkqoyp55/20/2025 3:43 PM EDTAFP SINGLE MARKER SCRN, MATERNAL, TPWYBEnifohm07/20/2025 10:17 AM EDTUNLISTED LAB BEIXZdzlwqy44/09/2025 11:17 AM EDTfrom Last 3 Months Results * US MFM COMPREHENSIVE ANATOMIC SURVEY (09/10/2025 10:56 AM EDT)Anatomical RegionLateralityModalityOB-GYNUltrasoundSpecimen (Source)Anatomical Location / LateralityCollection Method / VolumeCollection TimeReceived Time09/10/2025 9:58 AM EDT Narrative 09/10/2025 3:55 PM EDT NAME: ??JAYY REYNAGA : 1995 SEX: F Accession Number: [id number] ORDERING PHYSICIAN: MADHURI MONROY REFERRING PHYSICIAN: JONY MEJÍA Coding Procedures ? 67807: Ultrasound, uterus, real time with image documentation, and maternal evaluation ? plus detailed anatomic examination, transabdominal approach;single or first gestation ? 73353: Ultrasound, uterus, real time with image documentation, transvaginal Indication Screening for Anatomic Survey , Screening for cervical length , Gestational diabetes, Chronic hypertension affecting , History of prior with pre-eclampsia , History of prior with delivery , Previous surgery to cervix -(D&C). History OB History ? 2. Para 1 ? [id number] Current Cell free DNA ?Low Risk analysis Maternal Assessment Physical Exam ??Height 157 cm, 5 ft 2 in. Weight 75 kg, 165 lb. Initial weight 64 kg, 140 lb. BMI 30.18 kg/m??. Initial ? BMI 25.61 kg/m??. Weight gain 11 kg, 25 lb Method Transabdominal and transvaginal ultrasound examination. View: Suboptimal view: limited by position. Medical Gas Systems Worker Gas Systems Worker declined Hsieh . Number of fetuses: 1 Dating LMP on: ?02/21/2025 GA by LMP ?28 w + 5 d WEI by LMP: ?11/28/2025 Previous Ultrasound on: ?05/01/2025 Type of prior assessment: ?CRL U/S measurement at prior assessment date ? 25.2 mm GA by previous U/S ? 28 w + 1 d WEI by previous Ultrasound: ?12/02/2025 Ultrasound examination on: ? 09/10/2025 GA by U/S based upon: ??AC, BPD, Femur, HC GA by U/S ?29 w + 4 d WEI by U/S: ?11/22/2025 Assigned: ?based on the LMP, selected on 09/10/2025 Assigned GA (weeks days) ? 28 w + 5 d Assigned WEI: ??11/28/2025 General Evaluation Cardiac activity Present. FHR 138 bpm. Presentation: cephalic Placenta: Placental site: anterior, away from cervical os Umbilical cord: Cord vessels: 3 vessel cord. Insertion site: normal insertion Amniotic fluid: Amount of AF: normal amount. MVP 6.0 cm Biometry Standard BPD ?77.9 mm 31w 2d 96% Hadlock OFD ?93.6 mm 30w 1d 85% Gerda HC ? 274.0 mm ?29w 6d 55% Hadlock Cerebellum tr ??32.4 mm 27w 4d 26% Hill AC ? 251.1 mm ?29w 2d 62% Hadlock Femur ??52.6 mm 28w 0d 17% Hadlock Humerus ?47.1 mm 27w 5d 17% Gerda HC / AC ?1.09 EFW ?1,332 g ??50% Hadlock EFW (lb) ? 2 lb EFW (oz) ? 15 oz EFW by: ?Hadlock ([id number]-WK-KI-FL) Extended Tibia ??44.3 mm 27w 2d 10% Gerda Experimental Plastics Fabricator ? 3.2 mm CM ? 6.6 mm ?? 44% Nicolaides Head / Face / Neck Cephalic index 0.83 ? 88% Nicolaides Nasal bone: ?present Extremities / Bony Struc FL / BPD ? 0.68 FL / HC ?0.19 FL / AC ?0.21 Other Structures FHR ?138 bpm Anatomy The following structures appear normal: Head/Neck: Cranium. Lateral ventricles. Choroid plexus. Midline falx. Cavum septi pellucidi. Cerebellum. Cisterna ? magna. Parenchyma. Vermis. ? Neck. Face: Lips. Nose. Nasal bone. Heart/Thorax: Situs. Cardiac position. Cardiac axis. Cardiac size. Cardiac rhythm. ? Right lung. Left lung. Abdomen: Abdom. wall. Cord insertion. Stomach. Kidneys. Bladder. Small bowel. Large bowel. Right renal artery. ? Left renal artery. Genitals. Extremities/Skeleton: Right upper arm. Right forearm. Right upper leg. Right lower leg. Right foot.Left upper leg. Left foot. Skeleton The following structures could not be adequately visualized: Face ?? Profile. Heart / Thorax 4-chamber view. 3-vessel view. Aortic arch view. Interventricular septum. Great vessels. ? Diaphragm. Spine: Cervical spine. Thoracic spine. Lumbar spine. Sacral spine. Extremities / ??Right hand. Left hand. Left lower leg. Skeleton The following structures could not be examined: Face ?? Maxilla. Mandible. Orbits. Heart / Thorax RVOT view. LVOT view. 5-wkstjz-dtqsshj view. Bicaval view. Ductal arch view. Extremities / ??Left upper arm. Left forearm. Skeleton Maternal Structures Uterus Visualized Cervix Visualized ? Approach - Transvaginal: Cervical length 3.66 cm Right Ovary ?Visualized ? Size 3.5 cm x 2.3 cm x 1.3 cm. Vol 5.7 cm?? Left Ovary ? Not visualized Cul de Sac ? Visualized. No free fluid visualized Impression Single live intrauterine consistent with 28w 5d with an WEI of 11/28/2025. Normal growth. EFW measures at the 50%, AC measures at the 62%. Transvaginal cervical length measures 3.66 cm. Amniotic fluid MVP measures 6 cm. Recommendations Please see follow up MFM documentation from today's encounter. The patient is scheduled in four to six week(s) to complete anatomic survey. Subsequent follow up or other follow up as clinically determined by primary OB provider unless otherwise specified by MFM. Results forwarded to ordering provider so they can follow up with the patient as necessary. Procedure Note Madhuri Monroy MD - 09/10/2025 NAME: JAYY REYNAGA : 1995 SEX: F Accession Number: [id number] ORDERING PHYSICIAN: MADHURI MONROY REFERRING PHYSICIAN: JONY MEJÍA Coding Procedures [id number]: Ultrasound, uterus, real time with image documentation, and maternal evaluation plus detailed anatomic examination, transabdominalapproach;single or first gestation 94398: Ultrasound, uterus, real time with imagedocumentation, transvaginal Indication Screening for Anatomic Survey , Screening for cervical length ,Gestational diabetes, Chronic hypertension affecting , History of prior with pre-eclampsia , History of prior pregnancywith delivery , Previous surgery to cervix -(D&C). History OB History 2. Para 1 [id number] Current Cell free DNA Low Risk analysis Maternal Assessment Physical Exam Height 157 cm, 5 ft 2 in. Weight 75 kg, 165 lb. Initialweight 64 kg, 140 lb. BMI 30.18 kg/m??. Initial BMI 25.61 kg/m??. Weight gain 11 kg, 25 lb Method Transabdominal and transvaginal ultrasound examination. View: Suboptimalview: limited by position. Medical Gas Systems Worker Gas Systems Worker declined Hsieh . Number of fetuses: 1 Dating LMP on: 02/21/2025 GA by LMP 28 w + 5 d WEI by LMP: 11/28/2025 Previous Ultrasound on: 05/01/2025 Type of prior assessment: CRL U/S measurement at prior assessment date 25.2 mm GA by previous U/S 28 w + 1 d WEI by previous Ultrasound: 12/02/2025 Ultrasound examination on: 09/10/2025 GA by U/S based upon: AC, BPD, Femur, HC GA by U/S 29 w + 4 d WEI by U/S: 11/22/2025 Assigned: based on the LMP, selected on 09/10/2025 Assigned GA (weeks days) 28 w + 5 d Assigned WEI: 11/28/2025 General Evaluation Cardiac activity Present. FHR 138 bpm. Presentation: cephalic Placenta: Placental site: anterior, away from cervical os Umbilical cord: Cord vessels: 3 vessel cord. Insertion site: normalinsertion Amniotic fluid: Amount of AF: normal amount. MVP 6.0 cm Biometry Standard BPD 77.9 mm 31w 2d 96% Hadlock OFD 93.6 mm 30w 1d 85% Gerda HC 274.0 mm 29w 6d 55% Hadlock Cerebellum tr 32.4 mm 27w 4d 26% Lorenzo AC 251.1 mm 29w 2d 62% Hadlock Femur 52.6 mm 28w 0d 17% Hadlock Humerus 47.1 mm 27w 5d 17% Gerda HC / AC 1.09 EFW 1,332 g 50% Hadlock EFW (lb) 2 lb EFW (oz) 15 oz EFW by: Ismael ([id number]-DQ-FL) Extended Tibia 44.3 mm 27w 2d 10% Gerda [employer] Fabricator 3.2 mm CM 6.6 mm 44% Nicolaides Head / Face / Neck Cephalic index 0.83 88% Nicolaides Nasal bone: present Extremities / Bony Struc FL / BPD 0.68 FL / HC 0.19 FL / AC 0.21 Other Structures FHR 138 bpm Anatomy The following structures appear normal: Head/Neck: Cranium. Lateral ventricles. Choroid plexus. Midline falx.Cavum septi pellucidi. Cerebellum. Cisterna magna. Parenchyma. Vermis. Neck. Face: Lips. Nose. Nasal bone. Heart/Thorax: Situs. Cardiac position. Cardiac axis. Cardiac size. Cardiac rhythm. Right lung. Left lung. Abdomen: Abdom. wall. Cord insertion. Stomach. Kidneys. Bladder. Smallbowel. Large bowel. Right renal artery. Left renal artery. Genitals. Extremities/Skeleton: Right upper arm. Right forearm. Right upper leg.Right lower leg. Right foot. Left upper leg. Left foot. Skeleton The following structures could not be adequately visualized: Face Profile. Heart / Thorax 4-chamber view. 3-vessel view. Aortic arch view.Interventricular septum. Great vessels. Diaphragm. Spine: Cervical spine. Thoracic spine. Lumbar spine. Sacral spine. Extremities / Right hand. Left hand. Left lower leg. Skeleton The following structures could not be examined: Face Maxilla. Mandible. Orbits. Heart / Thorax RVOT view. LVOT view. 6-goahhg-kerceis view. Bicaval view.Ductal arch view. Extremities / Left upper arm. Left forearm. Skeleton Maternal Structures Uterus Visualized Cervix Visualized Approach - Transvaginal: Cervical length 3.66 cm Right Ovary Visualized Size 3.5 cm x 2.3 cm x 1.3 cm. Vol 5.7 cm?? Left Ovary Not visualized Cul de Sac Visualized. No free fluid visualized Impression Single live intrauterine consistent with 28w 5d with an WEI of 11/28/2025. Normal growth. EFW measures at the 50%, AC measures at the 62%. Transvaginal cervical length measures 3.66 cm. Amniotic fluid MVP measures 6 cm. Recommendations Please see follow up MFM documentation from today's encounter. The patient is scheduled in four to six week(s) to complete anatomicsurvey. Subsequent follow up or other follow up as clinically determined byprimary OB provider unless otherwise specified by MFM. Results forwarded to ordering provider so they can follow up with thepatient as necessary. Authorizing ProviderResult TypeResult StatusMadhuri Monroy MDG ORDERABLESFinal Result * 2nd hr Glucose Tolerance 100 gm load (08/15/2025)ComponentValueRef RangeTest MethodAnalysis TimePerformed AtPathologist SignatureGlucose Tolerance Test 2 [id number] TRANSCRIBED RESULTSSpecimen (Source)Anatomical Location / LateralityCollection Method / VolumeCollection TimeReceived TimeBloodVenous blood / Unknown Narrative Authorizing ProviderResult TypeResult StatusNot In System Ref ProvLAB BLOOD ORDERABLESFinal ResultPerforming OrganizationAddressCity/State/ZIP CodePhone Number MANUALLY TRANSCRIBED RESULTS * Glucose tolerance, 1 hour (08/15/2025)ComponentValueRef RangeTest Method Analysis TimePerformed AtPathologist SignatureGlucose Tolerance Test 1 [id number] MANUALLY TRANSCRIBED RESULTSSpecimen (Source)Anatomical Location / Laterality Collection Method / VolumeCollection TimeReceived TimeBloodVenous blood / Unknown Narrative Authorizing ProviderResult TypeResult StatusNot In System Ref ProvLAB BLOOD ORDERABLESFinal ResultPerforming OrganizationAddressCity/State/ZIP CodePhone Number MANUALLY TRANSCRIBED RESULTS * Glucose tolerance, 3 hours (08/15/2025)ComponentValueRef RangeTest Method Analysis TimePerformed AtPathologist SignatureGlucose Tolerance Test 3 [id number] MANUALLY TRANSCRIBED RESULTSSpecimen (Source)Anatomical Location / Laterality Collection Method / VolumeCollection TimeReceived TimeBloodVenous blood / Unknown Narrative Authorizing ProviderResult TypeResult StatusNot In System Ref ProvLAB BLOOD ORDERABLESFinal ResultPerforming OrganizationAddressCity/State/ZIP CodePhone Number MANUALLY TRANSCRIBED RESULTS * Glucose, tolerance fasting (08/15/2025)ComponentValueRef RangeTest Method Analysis TimePerformed AtPathologist SignatureGlucose Tolerance Test Sdelodi92 MANUALLY TRANSCRIBED RESULTSSpecimen (Source)Anatomical Location / Laterality Collection Method / VolumeCollection TimeReceived TimeBloodVenous blood / Unknown Narrative Authorizing ProviderResult TypeResult StatusNot In System Ref ProvLAB BLOOD ORDERABLESFinal ResultPerforming OrganizationAddressCity/State/ZIP CodePhone Number MANUALLY TRANSCRIBED RESULTS * Ultrasound - Office (08/12/2025 3:39 PM EDT) Only the most recent of2 resultswithin the time period is included. Anatomical RegionLateralityModalityAMBUltrasound Narrative Authorizing ProviderResult TypeResult StatusNot In System Ref ProvIMG US ORDERABLESFinal Result * Glucose 1h post 50g load (08/12/2025)ComponentValueRef RangeTest Method Analysis TimePerformed AtPathologist SignatureGlucose, 1 hr PP 50GM [id number] MANUALLY TRANSCRIBED RESULTSSpecimen (Source)Anatomical Location / Laterality Collection Method / VolumeCollection TimeReceived TimeBloodVenous blood / Unknown Narrative Authorizing ProviderResult TypeResult StatusNot In System Ref ProvLAB BLOOD ORDERABLESFinal ResultPerforming OrganizationAddressCity/State/ZIP CodePhone Number MANUALLY TRANSCRIBED RESULTS * AFP Single Marker Scrn, Maternal, Serum (07/15/2025 10:17 AM EDT)Specimen (Source)Anatomical Location / LateralityCollection Method / VolumeCollection TimeReceived TimeBloodVenous blood / Unknown Narrative Authorizing ProviderResult TypeResult StatusNot In System Ref ProvLAB BLOOD ORDERABLESFinal ResultPerforming OrganizationAddressCity/State/ZIP CodePhone Number MANUALLY TRANSCRIBED RESULTS * Unlisted Lab Test (07/04/2025 11:17 AM EDT) Narrative Authorizing ProviderResult TypeResult StatusNot In System Ref ProvLAB BLOOD ORDERABLESFinal ResultPerforming OrganizationAddressCity/State/ZIP CodePhone Number MANUALLY TRANSCRIBED RESULTS from Last 3 Months Insurance Care Teams Team MemberRelationshipSpecialtyStart DateEnd Date Cruz Rodríguez MD [address] [place] [address] [facility]
--- OUTSIDE RECORDS SUMMARY | 2025-09-19 07:45 | XMS_ITS | Encounter Summary ---
Author Organization [facility] Address [address] [place] [place] [address] Care Team Providers Care Cyber Security Name Role Phone Eliceo Beltran DO Primary Care Provider CharlottegeovaniEliceo kauffman Unavailable [phone] Encounter Details DateTypeDepartmentCare Team (Latest Contact Info)Ctygerwlwou39/17/2025bstract [facility] [place] [facility] [address] [place] [address] Nathan Pop DO [address] [facility] [address] Shereen [place], [facility]11 Social History Tobacco UseTypesPacks/DayYears UsedDateSmoking Tobacco: NeverSmokeless Tobacco: NeverAlcohol UseStandard Drinks/WeekCommentsNever0 (1 standard drink = 0.6 oz pure alcohol)caffeine: 1-2 cups per day, coffee and [id number] Health Literacy AnswerDate RecordedHow often do you [...] relatives?Once a week12/29/2024How often do you attend mosque or hoahaoism services?Patient nryhqmyc10/03/2025Do you belong to any clubs or organizations such as mosque groups, unions, Urvew or athletic leodan ups, or school groups?No12/29/2024How often do you attend meetings of the clubs or organizations you belong to?Patient ttxwfzyg89/03/2025re you , , , , never , [...] hard at all12/29/2024PHQ-2AnswerDate RecordedPatient Health Questionnaire-2 Score0 07/30/2025[facility] [place] [facility] - Occupational Stress QuestionnaireAnswerDate RecordedDo you feel stress - tense, restless, nervous, or anxious, or unable to sleep at night because yourmind is troubled all the time - these days?Only a lutfnz9312/29/2024Exercise Vital SignAnswerDate Recorded On average, how many [...] steady place to sleep or slept in [facility] (including now)?No09/19/2023Housing Stability Vital SignAnswerDate RecordedIn the [...] have received?High school /29/2023 Estimated Date of CvrivgixTcmhvjruCpz42/03/2026ased on last menstrual period of 02/21/2025Sex and Gender InformationValueDate RecordedSex Assigned at BirthNot on fileLegal LtyPtfehk82/15/2023 7:18 PM EDTGender IdentityNot on file Sexual OrientationNot on 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 Not on fileNot on fileNot on filedocumented as of this encounter Plan of Treatment DateTypeDepartmentCare Team (Latest Contact Info)Kzstxqfcune70/05/2025 3:00 PM ESTRoutine [facility] [place] [facility]BM[facility]LL[facility] [address] [place] [phone] Nathan Pop DO [address] [facility] [place] [address] documented as of this encounter Visit Diagnoses Not on filedocumented in this encounter Care Teams Team MemberRelationshipSpecialtyStart DateEnd Date Eliceo Beltran DO [address] [facility] [address] [place] [address] PCP - GeneralFamily Medicine02/14/24 Eliceo Beltran DO [address] [facility] [address] [place] [address] PCP - Medical [place] [employer]07/27/2412documented as of this encounter
--- OUTSIDE RECORDS SUMMARY | 2025-09-19 07:45 | XMS_ITS ---
Author Organization [facility] Source Produ ction (ClinicalSummary Clone) Address Unknown Care Team Providers Care Wire Galvanizer Name Role Phone Unavailable Primary Care Physician Unavailab le Results * [UNITY] ANEUPLOIDY NIPT Performed by: [employer] Shopping Cart Software Component Value Range Date Fraction 8.3% 05/11/2025 02:21 am UTCRh(D) NIPTRhD XRIBGCVA49/16/2025 02:21 am UTCSex Chromosome AneuploidyNOT CQLHDBEV95/16/2025 02:21 am UTCMonosomy XLOW RISK <1 in , 02:21 am UTCTrisomy 13LOW RISK <1 in , 02:21 am UTCTrisomy 18LOW RISK <1 in , 02:21 am UTCTrisomy 21LOW RISK <1 in , 02:21 am UTCFetal TsuLDAF0005/11/2025 02:21 am UTCPregnancy FugepbustWBMNVILSV86/16/2025 02:21 am UTCFor detailed report, see PDFSee PDF 05/11/2025 02:21 am UTC05/11/2025 02:21 am UTC Social History Observation Value Start Date End Date
--- OUTSIDE RECORDS SUMMARY | 2025-09-19 07:45 | XMS_ITS | Encounter Summary ---
Author Organization [facility] Address [address] [place] [address] Care Team Providers Care Director China Name Role Phone RubyEliceo Bryant DAY Primary Care Provider [phone] Ruby Eliceo Hurtado DO Unavailable [phone] Encounter Details DateTypeDepartmentCare Team (Latest Contact Info)Fxpvxgyqooo22/15/2025Travel Social History Tobacco UseTypesPacks/DayYears UsedDateSmoking Tobacco: NeverSmokeless Tobacco: NeverAlcohol UseStandard Drinks/WeekCommentsNever0 (1 standard drink = 0.6 oz pure alcohol)caffeine: 1-2 cups per day, coffee and [id number] Health Literacy AnswerDate RecordedHow often do you [...] week12/29/2024How often do you attend holiness or zoroastrian services?Patient aacqrwzw73/03/2025Do you belong to any clubs or organizations such as holiness groups, unions, fraternal or athletic leodan ups, or school groups?No12/29/2024How often do you attend meetings of the clubs or organizations you belong to?Patient hdilzagv34/03/2025re you , , , , never , [...] hard at all12/29/2024PHQ-2AnswerDate RecordedPatient Health Questionnaire-2 Score0 07/30/2025[facility] [place] of Occupational Health - Occupational Stress QuestionnaireAnswerDate RecordedDo you feel stress - tense, restless, nervous, or anxious, or unable to sleep at night because yourmind is troubled all the time - these days?Only a ndiinp6212/29/2024Exercise Vital SignAnswerDate Recorded On average, how many [...] steady place to sleep or [facility] ([facility])?No09/19/2023Housing Stability Vital SignAnswerDate RecordedIn the [...] the highest degree you have received?High school evvqlblc87/29/2023 Estimated Date of NcjwtbnuLpzvpxjtSva08/03/2026ased on last menstrual period of 02/21/2025Sex and Gender InformationValueDate RecordedSex Assigned at BirthNot on fileLegal PqwFtjxel34/15/2023 7:18 PM EDTGender IdentityNot on file Sexual OrientationNot on 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 Not on fileNot on fileNot on filedocumented as of this encounter Plan of Treatment DateTypeDepartmentCare Team (Latest Contact Info)Oskupninhvy04/05/2025 3:00 PM ESTRoutine [facility] [place] [facility] [address] [place] [address] Nathan Pop, DO [address] [place] [address] [place] [address] documented as of this encounter Visit Diagnoses Not on filedocumented in this encounter Care Teams Team MemberRelationshipSpecialtyStart DateEnd Date Eliceo Beltran DO [address] [place] [address] [place] [address] PCP - GeneralFamily Medicine02/14/24 Eliceo Beltran DO [address] [place] [address] [place] [address] PCP - Medical [place] [employer]07/27/2412documented as of this encounter
--- OUTSIDE RECORDS SUMMARY | 2025-09-19 07:45 | XMS_ITS | Encounter Summary ---
Author Organization [facility] Address [address] [place] [address] Care Team Providers Care Urban Anthropologist Name Role Phone Eliceo Beltran DO Primary Care Provider [phone] CharlottegeovaniEliceo kauffman Unavailable [phone] Encounter Details DateTypeDepartmentCare Team (Latest Contact Info)Ptjczhmkzov94/22/2025amboo flowsheet [facility] [place] [facility] [address] [place] [address] Nathan Pop DO [address] [facility] [address] Shereen [place], [facility]11 Social History Tobacco UseTypesPacks/DayYears UsedDateSmoking Tobacco: NeverSmokeless Tobacco: NeverAlcohol UseStandard Drinks/WeekCommentsNever0 (1 standard drink = 0.6 oz pure alcohol)caffeine: 1-2 cups per day, coffee and [id number] Health Literacy AnswerDate RecordedHow often do you [...] relatives?Once a week12/29/2024How often do you attend tenriism or denominational services?Patient ristpgoa79/03/2025Do you belong to any clubs or organizations such as tenriism groups, unions, Yub or athletic leodan ups, or school groups?No12/29/2024How often do you attend meetings of the clubs or organizations you belong to?Patient gfjbyeni10/03/2025re you , , , , never , [...] hard at all12/29/2024PHQ-2AnswerDate RecordedPatient Health Questionnaire-2 Score0 07/30/2025[facility] [place] [facility] - Occupational Stress QuestionnaireAnswerDate RecordedDo you feel stress - tense, restless, nervous, or anxious, or unable to sleep at night because yourmind is troubled all the time - these days?Only a mdbous3212/29/2024Exercise Vital SignAnswerDate Recorded On average, how many [...] steady place to sleep or slept in [facility] (including now)?No09/19/2023Housing Stability Vital SignAnswerDate RecordedIn [...] the highest degree you have received?High school nzahimkm30/29/2023 Estimated Date of YceznuxpVbzrxxbeLhb85/03/2026ased on last menstrual period of 02/21/2025Sex and Gender InformationValueDate RecordedSex Assigned at BirthNot on fileLegal TxtZzgvzu93/15/2023 7:18 PM EDTGender IdentityNot on file Sexual OrientationNot on 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 Not on fileNot on fileNot on filedocumented as of this encounter Plan of Treatment DateTypeDepartmentCare Team (Latest Contact Info)Ijmubyjyzai67/05/2025 3:00 PM ESTRoutine [facility] [place] OBJUSTINE [address] [place] [address] Nathan Pop DO [address] [facility] [place] [address] documented as of this encounter Visit Diagnoses Not on filedocumented in this encounter Care Teams Team MemberRelationshipSpecialtyStart DateEnd Date Eliceo Beltran DO [address] [facility] [address] [place] [address] PCP - GeneralFamily Medicine02/14/24 Eliceo Beltran DO [address] [place] [address] [place] [address] PCP - Medical [place] [employer]07/27/2412documented as of this encounter
[2025-09-19 10:26] VITALS: BP 118/64; PULSE 93; TEMP 36.9
== END 2025-09-19 11:12 | disposition home or self-care (01) ==
LOC: US 07:42 → FBC 10:02
PROVIDERS: Family Provider Family Medicine; PCP Family Medicine; Visit Provider Nurse Practitioner Family
DX: O24.419 Gestational diabetes mellitus in pregnancy, unspecified control (principal); Z3A.30 30 weeks gestation of pregnancy
CPT/HCPCS: 76818

== ENCOUNTER 2025-09-23 17:27 | Outpatient (OUT) | payer OTHER, SELFPAY ==
--- OUTSIDE RECORDS SUMMARY | 2025-09-03 15:50 | XMS_ITS | Encounter Summary ---
Author Organization [facility] Address [address] [place] [address] Care Team Providers Care Clinical Research Assistant Name Role Phone Eliceo Beltran DO Primary Care Provider [phone] CharlottegeovaniEliceo kauffman Unavailable [phone] Reason for Visit * ReasonCommentsRoutine Visit Encounter Details DateTypeDepartmentCare Team (Latest Contact Info)Ktriokfpiyh97/09/2025 3:50 PM EDTRoutine [facility] [address] [place] [address] Steph Keane, DEVYN [address] [place] [address] Hypertension affecting , antepartum ([facility]) (Primary Dx); 27 weeks gestation of ([facility]); Second trimester ([facility]) Social History Tobacco UseTypesPacks/DayYears UsedDateSmoking Tobacco: NeverSmokeless Tobacco: NeverAlcohol UseStandard Drinks/WeekCommentsNever0 (1 standard drink = 0.6 oz pure alcohol)caffeine: 1-2 cups per day, coffee and [id number] Health Literacy AnswerDate RecordedHow often do you [...] relatives?Once a week12/29/2024How often do you attend mormonism or druze services?Patient fyztssxm86/03/2025Do you belong to any clubs or organizations such as mormonism groups, unions, [employer] or athletic leodan ups, or school groups?No12/29/2024How often do you attend meetings of the clubs or organizations you belong to?Patient eeyytmyv37/03/2025re you , , , , never , [...] hard at all12/29/2024PHQ-2AnswerDate RecordedPatient Health Questionnaire-2 Score0 07/30/2025[facility] - Occupational Stress QuestionnaireAnswerDate RecordedDo you feel stress - tense, restless, nervous, or anxious, or unable to sleep at night because yourmind is troubled all the time - these days?Only a hcydqy9712/29/2024Exercise Vital SignAnswerDate Recorded On average, how many [...] place to sleep or slept in [facility] (including now)?No09/19/2023Housing Stability Vital SignAnswerDate RecordedIn the last 12 months, was there a time when you were not able to pay the mortgage or rent on time?No12/29/2024Number of Times Moved in the Last YearNot on file12/29/2024t any time in the past 12 months, were you homeless or living in a correction (including now)?No12/29/2024 EducationAnswerDate RecordedWhat is the highest level of school you have completed or the highest degree you have received?High school azbeclog23/29/2023 Estimated Date of SzmaetupWscrdvfyRyr59/03/2026ased on last menstrual period of 02/21/2025Sex and Gender InformationValueDate RecordedSex Assigned at BirthNot on fileLegal BwvLeepdl25/15/2023 7:18 PM EDTGender IdentityNot on file Sexual OrientationNot on 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 dswazyumoy-shcocnj-wnrzniah (Fiorinal) 50-325-40 MG capsule 1 capsule, Oral, [...] of menstrual cramps ([facility]) Varicella zoster Visual impairment HISTORY PAST MEDICAL [...] History: Procedure Laterality Date APPENDECTOMY 05/2016 at [facility] AND CURETT[facility] 12/2022 retained placenta DISTAL [...] nursing note reviewed. Exam conducted with a toe pounder present. Vitals: Estimated body mass index is 29.41 kg/m?? as calculated from the following: Height as of 07/30/25: 5' 2 . Weight as of this encounter: 160 lb 12.8 oz. BP: 170/90 Patient's last menstrual period was 02/21/2025. ASSESSMENT & PLAN ICD-10-CM 1. 27 weeks gestation of ([facility]) Z3A.27 POCT urinalysis dipstick manually resulted 2. Second trimester ([facility]) Z34.92 Return OB: Patient presents today [...] Plan of Treatment DateTypeDepartmentCare Team (Latest Contact Info)Ybfododvjzm06/05/2025 3:00 PM ESTRoutine [facility] [address] [address] Nathan Pop DO [address] [place] [address] documented as of this encounter Procedures Procedure NamePriorityDate/TimeAssociated DiagnosisCommentsPOCT URINALYSIS IUUSDEFPNwiudco18/09/2025 4:26 PM EDT 27 weeks gestation of ([facility]) documented in this encounter Results * POCT [...] affecting , antepartum ([facility])- Primary 27 weeks gestation of ([facility]) Second trimester ([facility]) state, incidental documented in this encounter Care Teams Team MemberRelationshipSpecialtyStart DateEnd Date Eliceo Beltran DO [address] [place] [address] PCP - GeneralFamily Medicine02/14/24 Eliceo Beltran DO [address] [place] [address] PCP - Medical [employer]07/27/2412documented as of this encounter
--- OUTSIDE RECORDS SUMMARY | 2025-09-10 11:00 | XMS_ITS | Encounter Summary ---
Author Organization [employer] tem Address [id number] [address] [place] [address] Care Team Providers Care Homemaker Companion Name Role Phone Cruz Rodríguez MD Primary Care Provider [phone] Reason for Visit * ReasonCommentsMFM consult Encounter Details DateTypeDepartmentCare Team (Latest Contact Info)Sdvgnfyxttk00/16/2025 11:00 AM EDTTelemedicine Maternal Medicine [place] [address] [facility] [address] [place] [phone] Madhuri Clements MD [address] [facility], [address] [place] [address] 28 weeks gestation of (Primary Dx); Insulin [...] or more drinks on one occasion?Never09/10/2025hildcareAnswer Date MecwspziWjwhogjrlIgvraqq21/13/2019EmploymentAnswerDate RecordedEmployment Rjpsryz9505/08/2019Hunger ScreeningAnswerDate RecordedWithin the past 12 months we worried whether our food would run out before we got money to buy more.Never True09/10/2025Within the past 12 months the food we bought just didn't last and we didn't have money to get more.Never True09/10/2025Purpose - LifeAnswerDate RecordedPurpose and direction in ovlaXcponyg38/11/2021Estimated Date of VqsjuewdRdxobysfEqg48/03/2026Based on last menstrual period of 02/21/2025 (Exact Date)Sex and Gender InformationValueDate RecordedSex Assigned at BirthNot on fileLegal WocExjcvs59/07/2019 2:55 PM ESTGender IdentityNot on fileSexual OrientationNot on filedocumented as of this encounter Last Filed Vital Signs Vital SignReadingTime TakenCommentsBlood Ptczebfh110/801 10:34 AM EDT Pulse--Temperature--Respiratory Rate--Oxygen Saturation--Inhaled Oxygen Concentration--Auxltr70.6 kg (160 lb)09/10/2025 10:34 AM EDTHeight--Body Mass Index29.2610 2:48 PM EDTdocumented in this encounter Functional Status * AUDIT-C ScoreAnswerDate of RtkpxjswumOjhhdo118/16/2025 10:17 AM Danae Salazar RN * QuestionAnswerDate [...] be sent through Care Everywhere. * Preeclampsia (Solomon Islander) documented in this encounter Progress Notes * Madhuri Clements MD - 09/10/2025 11:00 AM EDT Video Visit via Real-time Synchronous Audiovisual Provider Location: [facility], MATERNAL- MEDICINE [address] [place] [address], [address] [place] [id number] Patient Location: [facility] OB office Patient Location Etl Consultant: None Video Visit Consent Statement: I discussed [...] that there are some limitations compared to qioe-mq-kejv evaluations. We elected to proceed. REASON FOR [...] and the other consultants, we search on [employer] and all the available care everywhere epic I did review all the imaging studies of the patient available on EMR, ordered by the primary care physician and the other web consultant HABITS: Patient activity no restrictions, diet [...] checking blood glucose and remote evaluation through [facility] office until delivery. - Discontinue blood glucose evaluation and Lantus and offer formal glucose tolerance test around 6 weeks . - follow-up survey with the [facility] office visits scheduled. 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 Patient does have ultrasound video visit scheduled [...] follow up appointment scheduled by Zora in [facility]. documented in this encounter Plan of Treatment DateTypeDepartmentCare Team (Latest Contact Info)Fvssmlihxxn33/10/2025 3:00 PM ESTTelemedicine Maternal- Medicine at [facility] [address] [place] [address] Kayleigh Rizzo, PAAlbinC [address] [address] 10/08/2025 8:00 AM ESTAppointment Maternal Medicine [place] [address] [facility] [address] [place] [phone] documented as of this encounter Visit Diagnoses Diagnosis 28 weeks gestation of - Primary Insulin controlled gestational diabetes mellitus (GDM) in second trimester Essential hypertension affecting in third trimester documented in this encounter Care Teams Team MemberRelationshipSpecialtyStart DateEnd Date Cruz Rodríguez MD [address] [place] [address] PCP - GeneralFamily Medicine12/02/18documented as of this encounter
--- OUTSIDE RECORDS SUMMARY | 2025-09-16 15:20 | XMS_ITS | Encounter Summary ---
Author Organization [facility] Address [address] [place] [address] Care Team Providers Care Pierce And Shave Press Operator Name Role Phone CharlotteEliceo medina Primary Care Provider CharlottecarolEliceo Bryant DAY Unavailable [phone] Encounter Details DateTypeDepartmentCare Team (Latest Contact Info)Smdyfkeufzn11/22/2025 3:20 PM EDTRoutine [facility] [address] [place] [phone] Nathan Pop DO [address], [facility]11 29 weeks gestation of ([facility] Third trimester ([facility]); Hypertension affecting , antepartum ([facility]); Gestational diabetes mellitus (GDM), antepartum, gestational diabetes method of control unspecified([facility]) Social History Tobacco UseTypesPacks/DayYears UsedDateSmoking Tobacco: NeverSmokeless Tobacco: NeverAlcohol UseStandard Drinks/WeekCommentsNever0 (1 standard drink = 0.6 oz pure alcohol)caffeine: 1-2 cups per day, coffee and [id number] Health Literacy AnswerDate RecordedHow often do you [...] relatives?Once a week12/29/2024How often do you attend holiness or pentecostal services?Patient rezrtkmo77/03/2025Do you belong to any clubs or organizations such as holiness groups, unions, fraHidden City Games or athletic leodan ups, or school groups?No12/29/2024How often do you attend meetings of the clubs or organizations you belong to?Patient ksrkutha2025re you , , , , never , [...] hard at all12/29/2024PHQ-2AnswerDate RecordedPatient Health Questionnaire-2 Score0 07/30/2025[facility] [place] of Occupational Health - Occupational Stress QuestionnaireAnswerDate RecordedDo you feel stress - tense, restless, nervous, or anxious, or unable to sleep at night because yourmind is troubled all the time - these days?Only a zhvtpr5912/29/2024Exercise Vital SignAnswerDate Recorded On average, how many [...] or living in a group home (including now)?No12/29/2024 EducationAnswerDate RecordedWhat is the highest level of school you have completed or the highest degree you have received?High school /29/2023 Estimated Date of AswdsmfnFbhoqhuwObg74/03/2026ased on last menstrual period of 02/21/2025Sex and Gender InformationValueDate RecordedSex Assigned at BirthNot on fileLegal NimOsrwnb74/15/2023 7:18 PM EDTGender IdentityNot on file Sexual OrientationNot on 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 Not on fileNot on fileNot on filedocumented as of this encounter Last Filed Vital Signs Vital SignReadingTime TakenCommentsBlood Zzldmvim595/8010 4:04 PM EDT Pulse--Temperature--Respiratory Rate--Oxygen Saturation--Inhaled Oxygen Concentration--Iinzop98.8 kg (162 lb 12.8 oz)09/16/2025 4:04 PM [...] John San infection GDM (gestational diabetes mellitus) ([facility]) Headache History of menstrual cramps ([facility]) Varicella zoster Visual impairment HISTORY PAST MEDICAL HISTORY SOCIAL HISTORY Past Medical History: Diagnosis Date Amenorrhea d/t oral contraceptive pills Endometriosis John San infection GDM (gestational diabetes mellitus) ([facility]) Headache History of menstrual cramps severe Hypertension ([facility]) x1 Varicella zoster unsure Visual impairment w/ corrective lenses Social History Tobacco Use Smoking status: Never Smokeless tobacco: Never Substance Use Topics Alcohol use: Never Comment: caffeine: 1-2 cups per day, coffee and pop Drug use: Never FAMILY HISTORY Family History Problem Relation Name Age of Onset Hypertension Mother dayanna Colon cancer Father Anemia Father Breast cancer Maternal Grandmother Hypertension Maternal Grandfather scahin Cancer Maternal Grandfather sachin Colon cancer Paternal Grandfather SURGICAL HISTORY Past Surgical History: Procedure Laterality Date APPENDECTOMY 05/2016 at [facility] [place] 12/2022 retained [...] nursing note reviewed. Exam conducted with a telecommunications equipment installer present. Vitals: Estimated body mass index is 29.78 kg/m?? as calculated from the following: Height as of 07/30/25: 5' 2 . Weight as of this encounter: 162 lb 12.8 oz. BP: 120/80 Patient's last menstrual period was 02/21/2025. Assessment/Plan ICD-10-CM 1. 29 weeks gestation of ([facility]) Z3A.29 POCT urinalysis dipstick manually resulted 2. Third trimester ([facility]) Z34.93 POCT urinalysis dipstick manually resulted 3. Hypertension affecting , antepartum ([facility]) O16.9 4. Gestational diabetes mellitus (GDM), antepartum, gestational diabetes method of control unspecified ([facility]) O24.419 Return OB: Patient presents today for [...] and continues to report glucose log to [facility]. Follow up Ultrasound in 4 weeks. Orders Placed This Encounter Procedures POCT urinalysis dipstick manually resulted Follow Up: Patient is to return to office in 2 week for routine OB appointment. Documented by Steph Keane NP on behalf of: Nathan Pop DO documented in this encounter Plan of Treatment DateTypeDepartmentCare Team (Latest Contact Info)Ivnsbzicuvl33/05/2025 3:00 PM ESTRoutine [facility] [address] [place] [phone] Nathan Pop DO [address] [place], [place] [id number] NameTypePriorityAssociated DiagnosesOrder ScheduleUS OB follow up transabdominal approachImagingRoutine Gestational diabetes mellitus (GDM), antepartum, gestational diabetes method of control unspecified([facility]) every 4 weeks for 2 Occurrences starting 09/16/2025 until 12/17/2025US biophysical profile w non stress testImagingRoutine Gestational diabetes mellitus (GDM), antepartum, gestational diabetes method of control unspecified([facility]) Expected: 09/16/2025, Expires: 09/16/2026documented as of this encounter Procedures Procedure NamePriorityDate/TimeAssociated DiagnosisCommentsPOCT URINALYSIS DXQPULMRZisuisk93/22/2025 4:09 PM EDT 29 weeks gestation of ([facility]) Third trimester ([facility]) documented in this encounter Results * POCT [...] Visit Diagnoses Diagnosis 29 weeks gestation of ([facility]) Third trimester ([facility]) state, incidental Hypertension affecting , antepartum ([facility]) Gestational diabetes mellitus (GDM), antepartum, gestational diabetes method of control unspecified([facility]) documented in this encounter Care Teams Team MemberRelationshipSpecialtyStart DateEnd Date Eliceo Beltran DO [address] [place] [address] PCP - GeneralFamily Medicine02/14/24 Eliceo Beltran DO [address] [place] [address] PCP - Medical [place] [employer]07/27/2412documented as of this encounter
[2025-09-23 17:31] VITALS: BP 125/61; PULSE 95
--- OUTSIDE RECORDS SUMMARY | 2025-09-23 17:31 | XMS_ITS | Encounter Summary ---
Author Organization [employer] tem Address [id number] [address] [place] [address] Care Team Providers Care It Portfolio Manager Name Role Phone Cruz Rodríguez MD Primary Care Provider [phone] Reason for Referral * Diagnostic Imaging (Routine) - Pending ReviewSpecialtyDiagnoses / Procedures Referred By ContactReferred To ContactMaternal and Medicine Diagnoses Essential hypertension affecting in third trimester Insulin controlled gestational diabetes mellitus (GDM) in second trimester Encounter for follow-up ultrasound of anatomy Procedures US MFM with or without consult Quynh Clements MD [address] [address] Phone: tel: fax: Maternal- Medicine at [facility] [address] [place] [address] Phone: tel: fax: Referral IDStatusReasonStart DateExpiration DateVisits RequestedVisits [id number] Encounter Details DateTypeDepartmentCare Team (Latest Contact Info)Vpaaqvsvlzq97/16/2025Orders Only Maternal- Medicine at [facility] [address] [place] [address] Zora Samuels RN Essential hypertension affecting in [...] or more drinks on one occasion?Never5ChildcareAnswer Date YzkhhnmeDshllpffzGuibzvi84/13/2019EmploymentAnswerDate RecordedEmployment Piabalc6305/08/2019Hunger ScreeningAnswerDate RecordedWithin the past 12 months we worried whether our food would run out before we got money to buy more.Never True09/10/2025Within the past 12 months the food we bought just didn't last and we didn't have money to get more.Never True09/10/2025Purpose - LifeAnswerDate RecordedPurpose and direction in ybhzTxgwcct04/11/2021Estimated Date of JlbxqpcpPmdvjldwOxj78/03/2026Based on last menstrual period of 02/21/2025 (Exact Date)Sex and Gender InformationValueDate RecordedSex Assigned at BirthNot on fileLegal UwnVvyeen01/07/2019 2:55 PM ESTGender IdentityNot on fileSexual OrientationNot on filedocumented as of this encounter Functional Status * AUDIT-C ScoreAnswerDate of FviuqnnmctJudsro163/16/2025 10:17 AM Danae Salazar RN * QuestionAnswerDate of AssessmentAuthorQ1: How often do you have a drink containing alcohol?Never09/10/2025 10:17 AM Danae Salazar RNQ2: How many drinks containing alcohol do you have on a typical day when you are drinking? Patient does not drink09/10/2025 10:17 AM Danae Salazar, RNQ3: How often do you have six or more drinks on one occasion?Never09/10/2025 10:17 AM Danae Neuamnn RN documented as of this encounter Plan of Treatment DateTypeDepartmentCare Team (Latest Contact Info)Hzqitoykuqh82/10/2025 3:00 PM ESTTelemedicine Maternal- Medicine at [facility] [address] [place] [address] Kayleigh Rizzo PA-C [address] [address] 10/08/2025 8:00 AM ESTAppointment Maternal Medicine [place] [address] [facility] [address] [place] [address] NameTypePriorityAssociated DiagnosesOrder ScheduleUS MFM with or without [...] Cruz Rodríguez MD [address] [place] [address] PCP - GeneralFamily Medicine12/02/18documented as of this encounter
--- OUTSIDE RECORDS SUMMARY | 2025-09-23 17:31 | XMS_ITS | Encounter Summary ---
Author Organization [facility] Address [address] [place] [place] [address] Care Team Providers Care Analyzer Sales Name Role Phone Eliceo Beltran DO Primary Care Provider [phone] CharlottegeovaniEliceo kauffman Unavailable [phone] Encounter Details DateTypeDepartmentCare Team (Latest Contact Info)Agcsrfydhoo54/17/2025bstract [facility] [place] [facility] [address] [facility] [facility] [address] Nathan Pop DO [address] [facility] [address] Shereen [place], [facility]11 Social History Tobacco UseTypesPacks/DayYears UsedDateSmoking Tobacco: NeverSmokeless Tobacco: NeverAlcohol UseStandard Drinks/WeekCommentsNever0 (1 standard drink = 0.6 oz pure alcohol)caffeine: 1-2 cups per day, coffee and [id number] Health Literacy AnswerDate RecordedHow often do you [...] relatives?Once a week12/29/2024How often do you attend alevism or congregation services?Patient rnrefqnr30/03/2025Do you belong to any clubs or organizations such as alevism groups, unions, SOPATec or athletic leodan ups, or school groups?No12/29/2024How often do you attend meetings of the clubs or organizations you belong to?Patient rucmayfw49/03/2025re you , , , , never , [...] hard at all12/29/2024PHQ-2AnswerDate RecordedPatient Health Questionnaire-2 Score0 07/30/2025[facility] [place] of Occupational Health - Occupational Stress QuestionnaireAnswerDate RecordedDo you feel stress - tense, restless, nervous, or anxious, or unable to sleep at night because yourmind is troubled all the time - these days?Only a kaxjbp1612/29/2024Exercise Vital SignAnswerDate Recorded On average, how many [...] homeless or living in a long-term (including now)?No12/29/2024 EducationAnswerDate RecordedWhat is the highest level of school you have completed or the highest degree you have received?High school axwghqys92/29/2023 Estimated Date of NjzseunmNqunotgpNxp02/03/2026ased on last menstrual period of 02/21/2025Sex and Gender InformationValueDate RecordedSex Assigned at BirthNot on fileLegal IpaAgrtvy85/15/2023 7:18 PM EDTGender IdentityNot on file Sexual OrientationNot on 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 [address] Nathan Pop DO [address] [facility] [address] [place] [address] documented as of this encounter Visit Diagnoses Not on filedocumented in this encounter Care Teams Team MemberRelationshipSpecialtyStart DateEnd Date Eliceo Beltran DO [address] [facility] [address] [place] [address] PCP - GeneralFamily Medicine02/14/24 Eliceo Beltran DO [address] [facility] [address] [place] [address] PCP - Medical [place] [employer]07/27/2412documented as of this encounter
--- OUTSIDE RECORDS SUMMARY | 2025-09-23 17:31 | XMS_ITS | Encounter Summary ---
Author Organization [facility] tem Address [id number] [address] [place] [address] Care Team Providers Care Tubular Riveter Name Role Phone Cruz Rodríguez MD Primary Care Provider [phone] Encounter Details DateTypeDepartmentCare Team (Latest Contact Info)Snsbbkqenwy65/22/2025Telephone Maternal- Medicine at [facility] [address] [facility] [place] [address] Cha Harris, DILALO Social History Tobacco UseTypesPacks/DayYears UsedDateSmoking Tobacco: NeverSmokeless Tobacco: NeverAlcohol UseStandard Drinks/WeekCommentsNo0 (1 standard drink = 0.6 oz pure alcohol)AUDIT-CAnswerDate RecordedQ1: How often do you have a drink containing alcohol?Never09/10/2025Q2: How many drinks containing alcohol do you have on a typical day when you are drinking?Patient does not drink09/10/2025Q3: How often do you have six or more drinks on one occasion?Never5ChildcareAnswer Date EfxlpbdwYmmfhyblyOatxsdi96/13/2019EmploymentAnswerDate RecordedEmployment Rnialte1805/08/2019Hunger ScreeningAnswerDate RecordedWithin the past 12 months we worried whether our food would run out before we got money to buy more.Never True09/10/2025Within the past 12 months the food we bought just didn't last and we didn't have money to get more.Never True09/10/2025Purpose - LifeAnswerDate RecordedPurpose and direction in sxluWcugqvq64/11/2021Estimated Date of AhbfdcneGxnxmaklTdw37/03/2026Based on last menstrual period of 02/21/2025 (Exact Date)Sex and Gender InformationValueDate RecordedSex Assigned at BirthNot on fileLegal ScpSnwrkv06/07/2019 2:55 PM ESTGender IdentityNot on fileSexual OrientationNot [...] Plan of Treatment DateTypeDepartmentCare Team (Latest Contact Info)Mssbyspxmwr43/10/2025 3:00 PM ESTTelemedicine Maternal- Medicine at [facility] [address] [place] [address] Kayleigh Meza, FORREST [address] [address] 10/08/2025 8:00 AM ESTAppointment Maternal Medicine [place] [address] [facility] [address] [place] [address] documented as of this encounter Visit Diagnoses Not on filedocumented in this encounter Care Teams Team MemberRelationshipSpecialtyStart DateEnd Date Cruz Rodríguez MD [address] [place] [address] PCP - GeneralFamily Medicine12/02/18documented as of this encounter
--- OUTSIDE RECORDS SUMMARY | 2025-09-23 17:31 | XMS_ITS | Encounter Summary ---
Author Organization [facility] Address [address] [place] [address] Care Team Providers Care Bromination Equipment Operator Name Role Phone Eliceo Beltran DO Primary Care Provider [phone] CharlottegeovaniEliceo kauffman Unavailable [phone] Encounter Details DateTypeDepartmentCare Team (Latest Contact Info)Sjhllkrjjwt32/25/2025Clinisync Result Encounter [facility] Unsolicited Steph Keane, DEVYN [address] [facility] [place] [address] Social History Tobacco UseTypesPacks/DayYears UsedDateSmoking Tobacco: NeverSmokeless Tobacco: NeverAlcohol UseStandard Drinks/WeekCommentsNever0 (1 standard drink = 0.6 oz pure alcohol)caffeine: 1-2 cups per day, coffee and [id number] Health Literacy AnswerDate RecordedHow often do you [...] relatives?Once a week12/29/2024How often do you attend gnosticist or faith services?Patient hgfckkuf80/03/2025Do you belong to any clubs or organizations such as gnosticist groups, unions, [employer] or athletic leodan ups, or school groups?No12/29/2024How often do you attend meetings of the clubs or organizations you belong to?Patient quekhlvy93/03/2025re you , , , , never , [...] hard at all12/29/2024PHQ-2AnswerDate RecordedPatient Health Questionnaire-2 Score0 07/30/2025[facility] [place] of Occupational Health - Occupational Stress QuestionnaireAnswerDate RecordedDo you feel stress - tense, restless, nervous, or anxious, or unable to sleep at night because yourmind is troubled all the time - these days?Only a sczbtf7912/29/2024Exercise Vital SignAnswerDate Recorded On average, how many [...] steady place to sleep or slept in [facility] (including now)?No09/19/2023Housing Stability Vital SignAnswerDate RecordedIn [...] the highest degree you have received?High school hzmovpty46/29/2023 Estimated Date of TuxvmfbzVlvkiemoThn19/03/2026ased on last menstrual period of 02/21/2025Sex and Gender InformationValueDate RecordedSex Assigned at BirthNot on fileLegal GxqJanzep97/15/2023 7:18 PM EDTGender IdentityNot on file Sexual OrientationNot on 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 [phone] Nathan Pop, DO [address] [place] [place] [address] documented as of this encounter Procedures Procedure NamePriorityDate/TimeAssociated DiagnosisCommentsUS OB BPP W NON-ZKDRRZ5609/19/2025 12:17 PM EDT documented in this encounter Results * US OB BPP W NON-STRESS (09/19/2025 12:17 PM EDT)Anatomical Region LateralityModalityOtherSpecimen (Source)Anatomical Location / Laterality Collection Method / VolumeCollection TimeReceived Time09/19/2025 12:17 PM EDT Narrative 09/19/2025 12:19 PM EDT [facility] ?[address] ? [place] [address] ? Ultrasound Report ? Signed ? Patient: DRISS GAMA ?MR#: [id number] ?? : 1995 ?Acct:[id number] ?? Age/Sex: 30 / F ?ADM Date: 09/19/25 ?? Loc: US ? Attending Dr: Steph Keane ? Ordering Physician: Steph Keane ?? Date of Service: 09/19/25 ?? Procedure(s): US OB BPP w non-stress ?? Accession Number(s): [id number] ? cc: Steph Keane; Yomaira BELTRAN ? [facility] ? [address] ? [place] [address] ? Patient Name: ?? DRISS Daniel GAMA ? MRN: [id number] ? date: 1995 ?Sex: F ?? Assigned Patient Location: [facility] ?? Current Patient Location: ? Accession/Order Number: [id number] ?? Exam Date: 09/19/2025 ??10:06 ?Report Date: 09/19/2025 ??12:17 ? At the request of: ?? STEPH ??ELSA ? Procedure: ??US OB BPP w non-stress ? Ultrasound biophysical profile ? HISTORY: ??Gestational diabetes ? Adequate breathing movement, gross body movement, tone and ?? amniotic fluid volume for total score of 8 out of 8. ??The amniotic fluid index ?? is 13.8cm within normal limits. ??The heart rate 141 bpm. ? US/US OB BPP w non-stress ?? IMPRESSION: Adequate ultrasound biophysical profile ? Impression dictated by: Jp Morillo M.D. ??09/19/2025 12:17 PM ? Dictation Location: RADIO-PC-20 ? Electronically authenticated by: [id number] ??Y ?? Date: 09/19/2025 ??12:17 ? Dictated By: ?Jp Morillo D.O. ? Signed By: ?09/19/25 1219 ? DD/ 1217 ? TD/TT: ? Lining Machine Tender: Procedure Note Radiology, Radiologist, - 09/19/2025 [place] [address] Ultrasound Report Signed Patient: DRISS GAMA MMR#: [id number] : 1995Acct:[id number] Age/Sex: 30 / FADM Date: 09/19/25 Loc: US Attending Dr: Steph Keane Ordering Physician: Steph Keane Date of Service: 09/19/25 Procedure(s): US OB BPP w non-stress Accession Number(s): [id number] cc: Steph Keane; Yomaira BELTRAN The [address] [address] Patient Name: DRISS GAMA MRN: [id number] date: 1995 Sex: F Assigned Patient Location: [facility] Current Patient Location: Accession/Order Number: [id number] Exam Date: 09/19/2025 10:06 Report Date: 09/19/2025 12:17 At the request of: STEPH KEANE Procedure: US OB BPP w non-stress Ultrasound biophysical profile HISTORY: Gestational diabetes Adequate breathing movement, gross body movement, tone and amniotic fluid volume for total score of 8 out of 8. The amniotic fluidindex is 13.8cm within normal limits. The heart rate 141 bpm. US/US OB BPP w non-stress IMPRESSION: Adequate ultrasound biophysical profile Impression dictated by: Jp Morillo M.D. 09/19/2025 12:17 PM Dictation Location: [facility] Electronically authenticated by: [id number] Y Date: 2:17 Dictated By: Jp Morillo D.O. Signed By:09/19/25 1219 DD/ 1217 TD/TT: Lining Machine Tender: Authorizing ProviderResult TypeResult StatusSteph Keane NPCLINISYNC IMAGING Final Result documented in this encounter Visit Diagnoses Not on filedocumented in this encounter Care Teams Team MemberRelationshipSpecialtyStart DateEnd Date Eliceo Beltran DO [address] [place] [address] [facility] - [facility] Eliceo Beltran DO [address] [place] [address] PCP - Medical [place] [employer]07/27/2412documented as of this encounter
--- OUTSIDE RECORDS SUMMARY | 2025-09-23 17:31 | XMS_ITS | Encounter Summary ---
Author Organization [facility] Address [address] [place] [address] Care Team Providers Care Umbrella Repairer Name Role Phone RubyEliceo Bryant DAY Primary Care Provider [phone] Ruby Eliceo Hurtado DO Unavailable [phone] Encounter Details DateTypeDepartmentCare Team (Latest Contact Info)Vjfytamvlwf86/29/2025Travel Social History Tobacco UseTypesPacks/DayYears UsedDateSmoking Tobacco: NeverSmokeless Tobacco: NeverAlcohol UseStandard Drinks/WeekCommentsNever0 (1 standard drink = 0.6 oz pure alcohol)caffeine: 1-2 cups per day, coffee and [id number] Health Literacy AnswerDate RecordedHow often do you [...] relatives?Once a week12/29/2024How often do you attend mu-ism or taoism services?Patient sluiuohw25/03/2025Do you belong to any clubs or organizations such as mu-ism groups, unions, fraternal or athletic leodan ups, or school groups?No12/29/2024How often do you attend meetings of the clubs or organizations you belong to?Patient zyddsurr33/03/2025re you , , , , never , [...] hard at all12/29/2024PHQ-2AnswerDate RecordedPatient Health Questionnaire-2 Score0 07/30/2025[facility] [place] of Occupational Health - Occupational Stress QuestionnaireAnswerDate RecordedDo you feel stress - tense, restless, nervous, or anxious, or unable to sleep at night because yourmind is troubled all the time - these days?Only a feqhhd7412/29/2024Exercise Vital SignAnswerDate Recorded On average, how many [...] steady place to sleep or slept in [facility] (including now)?No09/19/2023Housing Stability Vital SignAnswerDate RecordedIn the last 12 months, was there a time when you were not able to pay the mortgage or rent on time?No12/29/2024Number of Times Moved in the Last YearNot on file12/29/2024t any time in the past 12 months, were you homeless or living in a residential (including now)?No12/29/2024 EducationAnswerDate RecordedWhat is the highest level of school you have completed or the highest degree you have received?High school edqubnev26/29/2023 Estimated Date of BamffyibJipklzefUor09/03/2026ased on last menstrual period of 02/21/2025Sex and Gender InformationValueDate RecordedSex Assigned at BirthNot on fileLegal VwuVvkryc46/15/2023 7:18 PM EDTGender IdentityNot on file Sexual OrientationNot on 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 Not on fileNot on fileNot on filedocumented as of this encounter Plan of Treatment DateTypeDepartmentCare Team (Latest Contact Info)Esryifglqpz21/05/2025 3:00 PM ESTRoutine [facility] [place] [facility] [address] [place] [address] Nathan Pop, DO [address] [place] [address] [place] [address] documented as of this encounter Visit Diagnoses Not on filedocumented in this encounter Care Teams Team MemberRelationshipSpecialtyStart DateEnd Date Eliceo Beltran DO [address] [place] [address] PCP - GeneralFamily Medicine02/14/24 Eliceo Beltran DO [address] [place] [address] PCP - Medical [place] [employer]07/27/2412documented as of this encounter
--- OUTSIDE RECORDS SUMMARY | 2025-09-23 17:31 | XMS_ITS | Encounter Summary ---
Author Organization [employer] Address [facility] [id number] [address] [place] [address] Care Team Providers Care Smart Energy Specialist Name Role Phone Cruz Rodríguez MD Primary Care Provider [phone] Encounter Details DateTypeDepartmentCare Team (Latest Contact Info)Mpbnejkcxhu87/16/2025Travel Social History Tobacco UseTypesPacks/DayYears UsedDateSmoking Tobacco: NeverSmokeless Tobacco: NeverAlcohol UseStandard Drinks/WeekCommentsNo0 (1 standard drink = 0.6 oz pure alcohol)AUDIT-CAnswerDate RecordedQ1: How often do you have a drink containing alcohol?Never09/10/2025Q2: How many drinks containing alcohol do you have on a typical day when you are drinking?Patient does not drink09/10/2025Q3: How often do you have six or more drinks on one occasion?Never09/10/2025hildcareAnswer Date HihigtypPcusgjvahVtoixhr65/13/2019EmploymentAnswerDate RecordedEmployment Wpbwuzj5905/08/2019Hunger ScreeningAnswerDate RecordedWithin the past 12 months we worried whether our food would run out before we got money to buy more.Never True09/10/2025Within the past 12 months the food we bought just didn't last and we didn't have money to get more.Never True09/10/2025Purpose - LifeAnswerDate RecordedPurpose and direction in dmvrLbfmuzn99/11/2021Estimated Date of HwpzobqtLcemjknmSmw96/03/2026Based on last menstrual period of 02/21/2025 (Exact Date)Sex and Gender InformationValueDate RecordedSex Assigned at BirthNot on fileLegal JzmHugcjf77/07/2019 2:55 PM ESTGender IdentityNot on fileSexual OrientationNot on filedocumented as of this encounter Functional Status * AUDIT-C ScoreAnswerDate of VrottepxnfFmdcpf394/16/2025 10:17 AM Danae Salazar RN * QuestionAnswerDate [...] Plan of Treatment DateTypeDepartmentCare Team (Latest Contact Info)Nnqjuqfqyvx95/10/2025 3:00 PM ESTTelemedicine [facility] [address] [place] [address] Kayleigh Rizzo, FORREST [address] [address] 10/08/2025 8:00 AM ESTAppointment Maternal Medicine [place] [address] [facility] [address] [place] [address] documented as of this encounter Visit Diagnoses Not on filedocumented in this encounter Care Teams Team MemberRelationshipSpecialtyStart DateEnd Date Cruz Rodríguez MD [address] [place] [address] PCP - GeneralFamily Medicine12/02/18documented as of this encounter
--- OUTSIDE RECORDS SUMMARY | 2025-09-23 17:31 | XMS_ITS | Clinical Summary ---
Author Organization [facility] tem Address [id number] [address] [place] [address] Care Team Providers Care Fuel Efficient Aircraft Designer Name Role Phone Cruz Rodríguez MD Primary Care Provider Allergies No known active allergies Medications MedicationSigDispense [...] needles to give insulin. 100 each 5Active insulin glargine-yfgn 100 unit/mL (3 mL) insulin pen Indications:Essential hypertension affecting in third trimesterPrime with 2 units and give 5 units every morning and 20 units subQ at bedtime. 15 mL 5Active rizatriptan RETAIL BUYER (MAXALT-RETAIL BUYER) 5 mg disintegrating tablet Dissolve 1 tablet [...] total) by mouth in the morning.09/04/2025Discontinued () vypkqmaina-kvsulyr-fmedqesm (FIORINAL) 50-325-40 mg per capsule Take 1 capsule by mouth every 4 (four) hours as needed for headaches.09/04/2025 Discontinued() insulin glargine-yfgn 100 unit/mL (3 mL) insulin pen Indications:Diet controlled gestational diabetes mellitus (GDM) in second trimester,Essential hypertension affecting in third trimesterPrime with 2 units and give 10 units subQ at bedtime. 15 mL /Discontinued blood sugar diagnostic (glucose blood) strip 1 strip by other route in the morning and 1 strip at noon and 1 strip in the evening and 1 strip before bedtime.Expired insulin glargine-yfgn 100 unit/mL (3 mL) insulin [...] ProblemNoted DateDiagnosed DateEssential hypertension affecting in third pfytrzfdt62/10/2025Insulin controlled gestational diabetes mellitus (GDM) in third pxrvbimzq67/26/2025Estimated Date of DeliveryCommentsYes 11/28/2025ased on last menstrual period of 02/21/2025 (Exact Date) Encounters DateTypeDepartmentCare BsuxWyubsleagad80/27/2025Telephone Maternal- Medicine at [facility] [address] [place] [phone] Verito Gudino LD 09/21/2025Remote Patient Monitoring Maternal- Medicine at [facility] [address] [place] [phone] Kayleigh Rizzo PA-C Insulin controlled gestational diabetes mellitus (GDM) in third trimester (Primary Dx); Essential hypertension affecting in third xpukmbtfs84/23/2025Orders Only Maternal- Medicine at [facility] [address] [place] [address] Camila Arciniega, FOUR SLIDE MACHINE SETTER-CNM Essential hypertension affecting in third fywwhaoyw98/22/2025Telephone Maternal- Medicine at [facility] [address] [place] [address] Cha Harris, DIALLO 09/15/2025Orders Only Maternal- Medicine at [facility] [address] [place] [address] Kayleigh Rizzo PA-C Essential hypertension affecting in third ugugcqgyf41/16/2025 11:00 AM EDTTelemedicine Maternal Medicine [place] [address] [phone] Madhuri Monroy MD 28 weeks gestation of (Primary Dx); Insulin controlled gestational diabetes mellitus (GDM) in second trimester; Essential hypertension affecting in third xmtlaqkpe67/16/2025Orders Only Maternal- Medicine at [facility] [address] [place] [address] Zora Samuels RN Essential hypertension affecting in third trimester (Primary Dx); Insulin controlled gestational diabetes mellitus (GDM) in second trimester; Encounter for follow-up ultrasound of zfujxdn4109/10/20252872Vblvcz60/10/2025 3:00 PM EDTOffice Visit Maternal- Medicine at [facility] [address] [place] [address] Jean Carlos Pina MD Diet controlled gestational diabetes mellitus (GDM) in second trimester (Primary Dx); Essential hypertension affecting in third quzxfmhve77/08/2025Travel 09/01/2025Telephone Maternal- Medicine at [facility] [address] [place] [address] Cha Harris, DIALLO 08/24/2025 1:30 PM EDTSupport Visit Maternal- Medicine at [facility] [address] [place] [address] Teena Sarmiento RN Kerline Steiner RD Gestational diabetes mellitus (GDM) in second trimester, gestational diabetes method of control mvdayfwovyg73/28/1901Tzvpjp12/27/8058Ahsglm37/26/2025bstract Maternal- Medicine at [facility] [address] [place] [address] External, Scanning Provider 08/19/2025Orders Only Maternal- Medicine at [facility] [address] [place] [address] Ref Prov, Not In System 08/18/2025bstract Maternal- Medicine at [facility] [address] [place] [address] Madhuri Monroy MD 08/18/2025Orders Only Maternal- Medicine at [facility] [address] [place] [address] Khalida [place] RN History of pre-eclampsia in [...] or more drinks on one occasion?Never09/10/2025hildcareAnswer Date MubzhldcYfcggveazPsqagjf26/13/2019EmploymentAnswerDate RecordedEmployment Afrzyap6305/08/2019Hunger ScreeningAnswerDate RecordedWithin the past 12 months we worried whether our food would run out before we got money to buy more.Never True09/10/2025Within the past 12 months the food we bought just didn't last and we didn't have money to get more.Never True09/10/2025Purpose - LifeAnswerDate RecordedPurpose and direction in hwviOyhlamz47/11/2021Estimated Date of PlbmeridDdwuqnhxPbm30/03/2026Based on last menstrual period of 02/21/2025 (Exact Date)Sex and Gender InformationValueDate RecordedSex Assigned at BirthNot on fileLegal PgdKesykc24/07/2019 2:55 PM ESTGender IdentityNot on fileSexual OrientationNot on file Last Filed Vital Signs Vital SignReadingTime TakenCommentsBlood Wlhnspkx543/801 10:34 AM EDT Pldbv67444/10/2025 2:48 PM EDTTemperature--Respiratory Jjxu6828 11:10 AM ESTOxygen Hdshbwzdpp08%12/10/2018 11:10 AM ESTInhaled Oxygen Concentration-- Vgcvpu67.6 kg (160 lb)09/10/2025 10:34 AM HVVNuybiy819.5 cm (5' 2.01 )09/04/2025 2:48 PM EDTBody Mass Index29.2610 2:48 PM EDT Plan of Treatment DateTypeDepartmentCare Team (Latest Contact Info)Tobztadnodw77/10/2025 3:00 PM ESTTelemedicine Maternal- Medicine at [facility] [address] [place] [phone] Kayleigh Rizzo PA-C [address] [address] 10/08/2025 8:00 AM ESTAppointment Maternal Medicine [place] [address] [facility] [address] [place] [address] Health MaintenanceDue DateLast DoneCommentsDepression Lvqxgqgqd24/08/2007dult BMI Follow Up Plan2013DTaP,Tdap and Td Vaccines (7 - Td or Tdap)2024 2014, 05/03/2000, 12/29/1997, Additional history existsInfluenza Vaccine dult BMI Bspwdmqye32Tobacco Screening Pap Smear Medical Devices Not on file Procedures Procedure NamePriorityDate/TimeAssociated DiagnosisCommentsUS [facility] COM[facility]IC JCZMAKBtvplmh74/16/2025 10:56 AM EDT History of pre-eclampsia in prior , currently GLUCOSE TOLERANCE, 3 GQVBOQwhlwkt01/20/2025 GLUCOSE TOLERANCE, UGGTEMBSejevpb15/20/2025 GLUCOSE TOLERANCE, 1 AIKIBebjlad83/20/2025 SECOND HOUR GLUCOSE TOLERANCE 100 GM TRGRDqtuqhc64/20/2025 ULTRASOUND VKBKBJIwzhnkz71/17/2025 3:39 PM EDTGLU 1H POST 50G LOADRoutine 08/12/2025 ULTRASOUND SLZWNQAycpjqz15/20/2025 3:43 PM EDTAFP SINGLE MARKER SCRN, MATERNAL, ONDVDDfjnkwa81/20/2025 10:17 AM EDTUNLISTED LAB LEQSMxchyvj46/09/2025 11:17 AM EDTfrom Last 3 Months Results * [facility] COMPREHENSIVE ANATOMIC SURVEY (09/10/2025 10:56 AM EDT)Anatomical RegionLateralityModalityOB-GYNUltrasoundSpecimen (Source)Anatomical Location / LateralityCollection Method / VolumeCollection TimeReceived Time09/10/2025 9:58 AM EDT Narrative 09/10/2025 3:55 PM EDT NAME: ??JAYY REYNAGA : 1995 SEX: F Accession Number: [id number] ORDERING PHYSICIAN: MADHURI MONROY REFERRING PHYSICIAN: JONY MEJÍA Coding Procedures ? 44117: Ultrasound, uterus, real time with image documentation, and maternal evaluation ? plus detailed anatomic examination, transabdominal approach;single or first gestation ? 10932: Ultrasound, uterus, real time with image documentation, transvaginal Indication Screening for Anatomic Survey , Screening for cervical length , Gestational diabetes, Chronic hypertension affecting , History of prior with pre-eclampsia , History of prior with delivery , Previous surgery to cervix -(D&C). History OB History ? 2. Para 1 ? [id number] Current Cell free DNA ?Low Risk analysis Maternal Assessment Physical Exam ??Height 157 cm, 5 ft 2 in. Weight 75 kg, 165 lb. Initial weight 64 kg, 140 lb. BMI 30.18 kg/m??. Initial ? BMI 25.61 kg/m??. Weight gain 11 kg, 25 lb Method Transabdominal and transvaginal ultrasound examination. View: Suboptimal view: limited by position. Medical Pilot Fuel Engineer Pilot Fuel Engineer declined Hsieh . Number of fetuses: 1 [...] (oz) ? 15 oz EFW by: ?Hadlock (JPI-OH-XU-FL) Extended Tibia ??44.3 mm 27w 2d 10% Gerda Loop Puller ? 3.2 mm CM ? 6.6 mm [...] Heart / Thorax RVOT view. LVOT view. 5-iflkwv-loycubl view. Bicaval view. Ductal arch view. Extremities [...] REYNAGA : 1995 SEX: F Accession Number: [id number] ORDERING PHYSICIAN: MADHURI MONROY REFERRING PHYSICIAN: JONY MEJÍA Coding Procedures 15963: Ultrasound, uterus, real time with image documentation, and maternal evaluation plus detailed anatomic examination, transabdominalapproach;single or first gestation 93190: Ultrasound, uterus, real time with imagedocumentation, transvaginal Indication Screening for Anatomic Survey , Screening for cervical length ,Gestational diabetes, Chronic hypertension affecting , History of prior with pre-eclampsia , History of prior pregnancywith delivery , Previous surgery to cervix -(D&C). History OB History 2. Para 1 [id number] Current Cell free DNA Low Risk analysis Maternal Assessment Physical Exam Height 157 cm, 5 ft 2 in. Weight 75 kg, 165 lb. Initialweight 64 kg, 140 lb. BMI 30.18 kg/m??. Initial BMI 25.61 kg/m??. Weight gain 11 kg, 25 lb Method Transabdominal and transvaginal ultrasound examination. View: Suboptimalview: limited by position. Medical Pilot Fuel Engineer Pilot Fuel Engineer declined Hsieh . Number of fetuses: 1 [...] Cerebellum tr 32.4 mm 27w 4d 26% Hill AC 251.1 mm 29w 2d 62% Hadlock Femur 52.6 mm 28w 0d 17% Hadlock Humerus 47.1 mm 27w 5d 17% Gerda HC / AC 1.09 EFW 1,332 g 50% Hadlock EFW (lb) 2 lb EFW (oz) 15 oz EFW by: Hadlock (JNQ-DO-EO-FL) Extended Tibia 44.3 mm 27w 2d 10% Gerda Loop Puller 3.2 mm CM 6.6 mm 44% Nicolaides [...] Heart / Thorax RVOT view. LVOT view. 5-bpuiyp-nvmwxvb view. Bicaval view.Ductal arch view. Extremities / [...] as necessary. Authorizing ProviderResult TypeResult StatusMadhuri Monroy MDIMG ORDERABLESFinal Result * 2nd hr Glucose Tolerance 100 gm load (08/15/2025)ComponentValueRef RangeTest MethodAnalysis TimePerformed AtPathologist SignatureGlucose Tolerance Test 2 [id number] TRANSCRIBED RESULTSSpecimen (Source)Anatomical Location / LateralityCollection Method / VolumeCollection TimeReceived TimeBloodVenous blood / Unknown Narrative Authorizing ProviderResult TypeResult StatusNot In System Ref ProvLAB BLOOD ORDERABLESFinal ResultPerforming OrganizationAddressCity/State/ZIP CodePhone Number MANUALLY TRANSCRIBED RESULTS * Glucose tolerance, 1 hour (08/15/2025)ComponentValueRef RangeTest Method Analysis TimePerformed AtPathologist SignatureGlucose Tolerance Test 1 Nmom882 MANUALLY TRANSCRIBED RESULTSSpecimen (Source)Anatomical Location / Laterality Collection Method / VolumeCollection TimeReceived TimeBloodVenous blood / Unknown Narrative Authorizing ProviderResult TypeResult StatusNot In System Ref FlockOfBirdsLAB BLOOD ORDERABLESFinal ResultPerforming OrganizationAddressCity/State/ZIP CodePhone Number MANUALLY TRANSCRIBED RESULTS * Glucose tolerance, 3 hours (08/15/2025)ComponentValueRef RangeTest Method Analysis TimePerformed AtPathologist SignatureGlucose Tolerance Test 3 Tint370 MANUALLY TRANSCRIBED RESULTSSpecimen (Source)Anatomical Location / Laterality Collection Method / VolumeCollection TimeReceived TimeBloodVenous blood / Unknown Narrative Authorizing ProviderResult TypeResult StatusNot In System Ref ProvLAB BLOOD ORDERABLESFinal ResultPerforming OrganizationAddressCity/State/ZIP CodePhone Number MANUALLY TRANSCRIBED RESULTS * Glucose, tolerance fasting (08/15/2025)ComponentValueRef RangeTest Method Analysis TimePerformed AtPathologist SignatureGlucose Tolerance Test Kpqlamy22 MANUALLY TRANSCRIBED RESULTSSpecimen (Source)Anatomical Location / Laterality [...] TimePerformed AtPathologist SignatureGlucose, 1 hr PP 50GM rjni851 MANUALLY TRANSCRIBED RESULTSSpecimen (Source)Anatomical Location / Laterality [...] TRANSCRIBED RESULTS from Last 3 Months Insurance MemberSubscriberPlan / Payer (Effective 2024-Present)Name:Driss Gama Relation to Subscriber:SelfName:Driss Gama Payer ID:Not on file Type:Not on file Address: [place] [id number] Care Teams Team MemberRelationshipSpecialtyStart DateEnd Date Cruz Rodríguez MD [address] [place] [address] PCP - GeneralFamily Medicine12/02/18
--- OUTSIDE RECORDS SUMMARY | 2025-09-23 17:31 | XMS_ITS | Clinical Summary ---
Author Organization [facility] Address [address] [place] [address] Care Team Providers Care Mounter Saxophones Name Role Phone Eliceo Beltran DO Primary Care Provider [phone] Eliceo Beltran DO Unavailable [phone] Allergies No known active allergies Medications MedicationSigDispense QuantityRefillsLast FilledStart DateEnd DateStatus metoprolol succinate XL (Toprol-XL) 25 MG 24 hr tablet Indications:Hypertension, unspecified typeTake 1 tablet by mouth daily 90 tablet 5Active Vit-Fe Fumarate-FA ( Vitamins) 28-0.8 MG tablet Indications:, unspecified gestational age ([facility]),Encounter for supervision of normal first in first trimester ([facility])Take 1 tablet by mouth Daily 30 tablet 110/6Active Alcohol Swabs (Alcohol Prep Pad) 70 % pads Indications:Gestational diabetes mellitus (GDM), antepartum, gestational diabetes method of control unspecified([facility]),Elevated glucose tolerance test Apply 1 Pad topically Daily Use four times daily to check FSBS. 150 each 5Active Blood Glucose Monitoring Suppl (D-Care Glucometer) w/Device kit Indications:Gestational diabetes mellitus (GDM), antepartum, gestational diabetes method of control unspecified([facility]),Elevated glucose tolerance test1 kit Daily Use four times daily to check FSBS. In the morning prior to breakfast & 1 hour after each meal for a total of 4times daily. 1 kit 506Active labetalol (Normodyne) 200 MG tablet Indications:Gestational HypertensionTake 1 tablet (200 mg) by mouth in the morning and 1 tablet (200 mg) before bedtime. 60 tablet 5Active insulin glargine-yfgn (Semglee-yfgn) 100 UNIT/ML pen Inject 13 Units under the skin at uvwvtxg02/21/2025Active labetalol (Normodyne) 100 MG tablet Indications:Hypertension, unspecified typeTake 1 tablet (100 mg) by mouth in the morning and 1 tablet (100 mg) before bedtime. 60 tablet Discontinued Lancets Ultra Thin [facility] [place] Indications:Gestational diabetes mellitus (GDM), antepartum, gestational diabetes method of control unspecified([facility]),Elevated glucose tolerance test1 each by In Vitro route Daily Use to check FSBS four times daily 150 each Expired Glucose Blood (Blood Glucose Test) strip Indications:Gestational diabetes mellitus (GDM), antepartum, gestational diabetes method of control unspecified([facility]),Elevated glucose tolerance test1 strip by In Vitro route Daily Use in the morning prior to breakfast, 1 hour after each meal for atotal of 4times daily. 150 strip Expired yrbcrbxshy-oemhhrc-btcrjddh (Fiorinal) 50-325-40 MG capsule Take 1 capsule by mouth every 4 (four) hours if utrhmb0209/16/2025Discontinued cetirizine (ZyrTEC) 10 MG tablet Take 10 mg by mouth in the morning.09/16/2025Discontinued Ferrous Sulfate (IRON PO) Take 1 tablet by mouth in the morning.09/16/2025Discontinued fluticasone (Flonase) 50 MCG/ACT nasal spray Administer 1 spray into affected nostril(s) in the morning.09/16/2025 Discontinued Active Problems ProblemNoted DateDiagnosed HccuUmddtini63/29/4208Qvbhvoghyay66/26/2024Obesity (BMI 30-39.9)02/19/2024cquired equinus deformity of foot03/29/2023isplacement of cervical intervertebral disc without uddjwjfshv42/04/2023ysmenorrhea 03/29/20239616Skodhrqvwfwdu38/04/3246Dfdjuvnavbsjh51/04/2658Vgkzcjffioxd72/04/2023 Assessment & Plan (07/30/2025 4:00 PM EDT): Record Blood Pressures 2-4 times weekly and record. Return with readings at next appointment. Call with readings if sees significant changes Intractable migraine without aura and with status wtleuqfzlbz35/04/2023Migraines 03/29/2023hronic pelvic pain in fczmby0103/29/2023ain in female genitalia on sofbwhgtbzf64/04/2023ain on yqafixlhsq56/04/2023anic /04/2023 Patellofemoral disorders, left knee03/29/2023atellofemoral disorders, right knee03/29/2023osterior calcaneal pbkyaqjvp40/04/2023Scapular dyskinesis 03/29/20230185Wfvvbxciq58/04/2023Seasonal allergic rhinitis due to jwjnjf8403/29/2023 Tachycardia, rbhwopumxu84/04/2023Tension hqhlzore90/04/2023Vitamin B12 ylcmuegwtc35/04/2023Vitamin D jqklqwktus80/04/2023hronic right shoulder pain 03/29/2023Estimated Date of HdngsddhMecjguuxYcj80/03/2026Based on last menstrual period of 02/21/2025 Encounters DateTypeDepartmentCare YkigPveutffkxkg41/29/9310Oiigft43/25/2025linisync Result Encounter [facility] External Department Unsolicited Steph Keane NP 09/16/2025 3:20 [place] [address] Nathan Pop DO 29 weeks gestation of ([facility] Third trimester ([facility]); Hypertension affecting , antepartum ([facility]); Gestational diabetes mellitus (GDM), antepartum, gestational diabetes method of control unspecified([facility])09/16/2025amboo [place] [address] Nathan Pop, DO 09/11/2025bstract [facility] [address] [address] Nathan Pop, DO 09/09/20259079Ddahsv44/09/2025 3:50 PM EDTRoutine [facility] [address] [place] [phone] Steph Keane NP Hypertension affecting , antepartum ([facility]) (Primary Dx); 27 weeks gestation of ([facility]); Second trimester ([facility])09/03/2025linisync Result Encounter [facility]OM[facility] External Department Unsolicited Nathan Pop, DO 09/03/2025amboo flowsheet [facility] [address] [place] [phone] Steph Keane NP 09/02/20255482Zfedoz40/04/2025linisync Result Encounter [facility]OM[facility] External Department Unsolicited Steph Keane NP 08/28/2025bstract [facility] [place] [facility] [address] [place] [address] Eliceo Beltran DO 08/28/2025Telephone [facility] [address] [place] [phone] Radha Rahman MA 08/27/2025 3:20 PM EDTRoutine [facility] [address] [place] [address] Steph Keane NP 26 weeks gestation of ([facility]); Second trimester ([facility]); induced hypertension, antepartum ([facility]); Gestational diabetes mellitus (GDM) in second trimester, gestational diabetes method of control unspecified ([facility])08/27/2025linisync Result Encounter [facility]OM[facility] External Department Unsolicited Steph Keane, STUDENT LIFE DEAN 5Clinisync Result Encounter NOMS External Department Unsolicited LakhwinderSteph montiel, STUD[employer] DEAN 5Bamboo flowsheet [facility] [address] [address] Lakhwinder, Steph, [employer] DEAN 5Clinisync Result Encounter [facility]OM[facility] External Department Unsolicited Provider, Generic External Data 08/20/2025bstract [facility] [address] [address] Nathan Pop, DO 08/20/2025Telephone [facility] [address] [place] [address] Steph Keane, STUDENT [employer] DEAN 08/17/2025bstract [facility] [address] [place] [phone] Eliceo Beltran, DO 08/17/2025bstract [facility] [address] [place] [phone] Eliceo Beltran, DO 08/17/2025Telephone [facility] [address] [place] [address] Nathan Pop, DO 08/12/2025 2:40 PM EDTRoutine [facility] [address] [address] Nathan Pop, DO 24 weeks gestation of ([facility]); Second trimester ([facility]); Elevated glucose tolerance test08/12/2025 2:00 PM EDTAncillary Procedure [facility] [place] [facility] [address] [place] [address] Encounter for follow-up ultrasound of anatomy ([facility])08/12/2025Telephone [facility] [address] [place] [address] Bill Gould LPN Axaovyo1508/12/2025bstract [facility] [address] [place] [address] Eliceo Beltran, DO 08/04/2025[facility]phone [facility] [address] [place] [address] Bill Gould LPN Ndbzfqh4507/30/2025 3:40 PM EDTOffice Visit [facility] [address] [place] [phone] Eliceo Beltran, DO Wellness examination (Primary Dx); Hypertension, unspecified type ; Lipid eglnodgqk64/04/2025amboo flowsheet [facility] [address] [place] [address] Eliceo Beltran, DO 07/30/20252378Bswrlb09/26/2025Telephone [facility] [address] [facility] [facility] [place] [address] Nathan Pop, 07/15/2025 3:30 PM EDTRoutine [facility] [place] [address] [place] [address] Nathan Pop, 20 weeks gestation of ([facility]); Second trimester ([facility]); Diabetes mellitus ybprwlcrk40/20/2025 2:30 PM EDTAncillary Procedure [facility] [place] [facility] [address] [facility] [facility] [place] [address] Screening, , for anatomic survey ([facility])07/15/2025linisync Result Encounter [facility] External Department Unsolicited Nathan Pop, 06/25/2025Telephone [facility] [address] [place] [address] Nathan Pop DO from Last 3 Months Immunizations ImmunizationAdministration DatesNext DueDTP / HiB08/01/1996,1995, 1995DTaP, Ichyohexnkj37/08/2000,12/29/1997HPV, Pyeertrhjiro19/17/2014, 05/04/2014,2014Hep A, Adult09/11/2014,2014Hep B, Adolescent or Fxdlvvdrn32/06/1996,1995,1995IPV05/03/2000Influenza, seasonal, injectable, preservative free09/11/2014MMR05/03/2000,08/01/1996Meningococcal VKZ5P4504/03/2007OPV08/01/1996,1995,1995Tdap2014 Family History Medical HistoryRelationNameCommentsAnemiaFatherColon cancerFatherCancerMaternal GrandfatherbutchHypertensionMaternal GrandfatherbutchBreast cancerMaternal GrandmotherHypertensionMotherdarleneColon cancerPaternal GrandfatherRelationName StatusCommentsFatherDeceasedMaternal GrandfatherbutchMaternal GrandmotherMother darleneAlivePaternal GrandfatherPaternal GrandmotherAlive Social History Tobacco UseTypesPacks/DayYears UsedDateSmoking Tobacco: NeverSmokeless Tobacco: Never Tobacco Cessation:Counseling Given: Not Answered Alcohol UseStandard Drinks/WeekCommentsNever0 (1 standard drink = 0.6 oz pure alcohol)caffeine: 1-2 cups per day, coffee and [id number] Health LiteracyAnswer Date RecordedHow often do you [...] relatives?Once a week12/29/2024How often do you attend sabianism or synagogue services?Patient skjxihip67/03/2025Do you belong to any clubs or organizations such as sabianism groups, unions, [employer] or athletic leodan ups, or school groups?No12/29/2024How often do you attend meetings of the clubs or organizations you belong to?Patient uhzwfcvv13/03/2025re you , , , , never , [...] RecordedPatient Health Questionnaire-2 Score0 07/30/2025[facility] - Occupational Stress QuestionnaireAnswerDate RecordedDo you feel stress - tense, restless, nervous, or anxious, or unable to sleep at night because yourmind is troubled all the time - these days?Only a ughiqa2512/29/2024Exercise Vital SignAnswerDate Recorded On average, how many [...] steady place to sleep or slept in arbor healther (including now)?No09/19/2023Housing Stability Vital SignAnswerDate RecordedIn the [...] the highest degree you have received?High school qpixcayg13/29/2023 Estimated Date of McmbofvzClvgqhhoPjm88/03/2026ased on last menstrual period of 02/21/2025Sex and Gender InformationValueDate RecordedSex Assigned at BirthNot on fileLegal TfnAwndfa94/15/2023 7:18 PM EDTGender IdentityNot on file Sexual OrientationNot on 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 Not on fileNot on fileNot on file Last Filed Vital Signs Vital SignReadingTime TakenCommentsBlood Xzmyjrch136/8010 4:04 PM EDT Irmyg940707/30/2025 3:36 PM TOQVmaqynpabth37.2 ??C (97.1 ??F)07/30/2025 3:36 PM EDTRespiratory Rter837412/23/2022 4:16 PM ESTOxygen Lwijrawfqz24%07/30/2025 3:36 PM EDTInhaled Oxygen Concentration--Anrver69.8 kg (162 lb 12.8 oz)09/16/2025 4:04 PM PMVTckjov319.5 cm (5' 2 )07/30/2025 3:36 PM EDTBody Mass Index29.78 07/30/2025 3:36 PM EDT Plan of Treatment DateTypeDepartmentCare Team (Latest Contact Info)Gjhzhopqnqv81/05/2025 3:00 PM ESTRoutine [facility] [address] [phone] Nathan Pop, [address] [place] [place], [place] [phone] Health MaintenanceDue DateLast DoneCommentsVaricella Vaccines (1 of 2 - 13+ 2- dose series)2008DTaP/Tdap/Td Vaccines (7 - Td or Tdap)2024 2014, 05/03/2000, 12/29/1997, Additional history existsCOVID-19 Vaccine ( - season)2025Influenza Vaccine (#1)/Pap Smear /, 08/15/2023, 06/20/2022, Additional history existsCervical Cancer Rugoeuncs60/09/2028HPV/Sipzpl27/07/2023HIB VaccinesCompleted 08/01/1996, 1995, 1995Hepatitis B ZejpbdcwSxxqtambx42/06/1996, 1995, 1995IPV OgcskjhmFohqfaomp47/08/2000, 08/01/1996, 1995, Additional history existsMMR OcwpcaveMaifslbgt85/08/2000, 08/01/1996HPV Vaccines Bxyyhtcxg92/17/2014, 05/04/2014, 2014Hepatitis A VaccinesAged Out 09/11/2014, 2014No longer eligible based on patient's age to complete this topicMeningococcal B VaccineAged OutNo longer eligible based on patient's age to complete this topicMeningococcal VaccineAged OutNo longer eligible based on patient's age to complete this topicPneumococcal Vaccine: Pediatrics (0 to 5 Years) and At-Risk Patients (6 to 64 Years)Aged OutNo longer eligible based on patient's age to complete this topicRotavirus VaccinesAged OutNo longer eligible based on patient's age to complete this topic Procedures Procedure NamePriorityDate/TimeAssociated DiagnosisCommentsUS OB BPP W NON-CYVNKU8209/19/2025 12:17 PM EDT POCT URINALYSIS MXPCTJIDFjnnfgd47/22/2025 4:09 PM EDT 29 weeks gestation of ([facility]) Third trimester ([facility]) ALL CBC WITH AUTO IKJNGtjutmt36/09/2025 5:15 PM EDT MHPT FWLZGOINFZDocizzq19/09/2025 5:15 PM EDT CCF DZXXOvoxzod04/09/2025 5:15 PM EDT SRMCOH PROTHROMBIN TIME INR W/O JQWXQokratb95/09/2025 5:15 PM EDT C[facility] HAHQzjplia05/09/2025 5:15 PM EDT [facility] WAZVbebawo70/09/2025 5:15 PM EDT ALL URIC CANWYqhddzk33/09/2025 5:15 PM EDT TBH YKEAWVGAJLDhebanr50/09/2025 5:15 PM EDT ALL ZCFUjnnkun23/09/2025 5:15 PM EDT TBH URINE T PROTEIN CREAT WWDPCXafcjvj09/09/2025 5:05 PM EDT POCT URINALYSIS LFMWKNSJFwkuplw13/09/2025 4:26 PM EDT 27 weeks gestation of ([facility]) [facility] TOTAL PROTEIN 24 HOUR ZUADKOgqetll20/04/2025 8:00 AM EDT US OB BPP W NON-EVXADU9208/27/2025 6:02 PM EDT TBH URINE T PROTEIN CREAT KBJCVNrfsgbl66/02/2025 5:50 PM EDT C[facility] QUXKecipem01/02/2025 5:00 PM EDT CCF MSCGDjrplph82/02/2025 5:00 PM EDT SRMCOH PROTHROMBIN TIME INR W/O KRQQTczmwso34/02/2025 5:00 PM EDT ALL SLSGdzvwyl38/02/2025 5:00 PM EDT CCF PZURqhsklq11/02/2025 5:00 PM EDT ALL URIC INJRDgpsxcu35/02/2025 5:00 PM EDT TBH EAEZFNVHDMEsdpqhz34/02/2025 5:00 PM EDT ALL VLKXnoqolq24/02/2025 5:00 PM EDT ALL CBC WITH AUTO JAZGKxwrxai05/02/2025 5:00 PM EDT POCT URINALYSIS NXJOLBDDYlagpmh86/02/2025 3:53 PM EDT 26 weeks gestation of ([facility]) URINE CULTURE, HWACUCDYpkmxub78/30/2025 8:10 AM EDT POCT URINALYSIS CFHXRQXNFavwmho03/17/2025 2:39 PM EDT 24 weeks gestation of ([facility]) Second trimester ([facility]) US OB LIMITED 1+ NPOUSTDBccrmpv33/17/2025 2:22 PM EDT Encounter for follow-up ultrasound of anatomy ([facility]) AFP, SERUM, OPEN SPINA ELBZZYJnwetol37/20/2025 5:07 PM EDT POCT URINALYSIS CKWHZWQAZzwtkjx94/20/2025 3:50 PM EDT 20 weeks gestation of ([facility]) Second trimester ([facility]) US OB 14+ WEEKS ANATOMY NZZQQoyqwus40/20/2025 3:26 PM EDT Screening, , for anatomic survey ([facility]) PAP EJMQYNltrfri01/23/2024 12:00 AM EDTTHINPREP PAP AND HPV MRNA E6/E7 W/RFL HPV 16,18/32Jhupjlc01/09/2023 4:00 PM EDT Well woman exam with routine gynecological exam from Last 3 Months or Most Recently Relevant to Health Maintenance Results * US OB BPP W NON-STRESS (09/19/2025 12:17 PM EDT) Only the most recent of2 resultswithin the time period is included. Anatomical RegionLateralityModalityOtherSpecimen (Source)Anatomical Location / LateralityCollection Method / VolumeCollection TimeReceived Time09/19/2025 12:17 PM EDT Narrative 09/19/2025 12:19 PM EDT [facility] ?[address] ? [place] [address] ? Ultrasound Report ? Signed ? Patient: MCCONEGLY,DRISS M ?MR#: [id number] ?? : 1995 ?Acct:[id number] ?? Age/Sex: 30 / F ?ADM Date: 10/25/25 ?? Loc: US ? Attending Dr: Steph Keane ? Ordering Physician: Steph Keane ?? Date of Service: 09/19/25 ?? Procedure(s): US OB BPP w non-stress ?? Accession Number(s): [id number] ? cc: Steph Keane; Yomaira BELTRAN ? [facility] ? [address] ? [place] [address] ? Patient Name: ?? DRISS GAMA ? MRN: [facility]:[id number] ? date: 1995 ?Sex: F ?? Assigned Patient Location: FB ?? Current Patient Location: ? Accession/Order Number: [id number] ?? Exam Date: 09/19/2025 ??10:06 ?Report Date: 09/19/2025 ??12:17 ? At the request of: ?? STEPH ??LAKHWINDER ? Procedure: ??US OB BPP w non-stress [...] M.D. ??09/19/2025 12:17 PM ? Dictation Location: [facility]- ? Electronically authenticated by: [id number] ??Y ?? Date: 09/19/2025 ??12:17 ? Dictated By: ?Jp Morillo D.O. ? Signed By: ?09/19/25 1219 ? DD/ 16 ? TD/TT: ? Division Supervisor: Procedure Note Radiology, Radiologist, MD - 09/19/[address] [address] Ultrasound Report Signed Patient: DRISS GAMA [facility]#: [id number] : 1995Acct:[id number] Age/Sex: 30 / FADM Date: 09/19/25 Loc: US Attending Dr: Steph Keane Ordering Physician: Steph Keane Date of Service: 09/19/25 Procedure(s): US OB BPP w non-stress Accession Number(s): [id number] cc: Steph Keane; Yomaira BELTRAN [place] [id number] Patient Name: DRISS GAMA MRN: [id number] date: 1995 Sex: F Assigned Patient Location: [facility] Current Patient Location: Accession/Order Number: [id number] Exam Date: 09/19/2025 10:06 Report Date: 09/19/2025 [...] Morillo M.D. 09/19/2025 12:17 PM Dictation Location: [place] [address] Electronically authenticated by: [id number] Y Date: 2:17 Dictated By: Jp Morillo D.O. Signed By:09/19/25 1219 DD/ 1217 TD/TT: Division Supervisor: Authorizing ProviderResult TypeResult StatusSteph Keane NPCLINISYNC IMAGING Final Result * POCT urinalysis dipstick manually resulted (09/16/2025 4:09 PM EDT) Only the most recent of5 resultswithin the time period is included. ComponentValueRef [...] Location / LateralityCollection Method / VolumeCollection TimeReceived OwquAostp34/22/2025 4:09 PM EDT Narrative Authorizing ProviderResult TypeResult StatusCorey Kiesha DOPOINT OF CARE TEST ENTER/EDIT ORDERABLESFinal Result * (ABNORMAL) [facility] CREATININE (09/03/2025 5:15 PM EDT) Only the most recent of2 resultswithin the time period is included. ComponentValueRef RangeTest MethodAnalysis TimePerformed AtPathologist Signature CREATININE0.42(L)0.55 - 1.02 mg/dLTBHTBH EGFR-AF OMANI>60>=60 mL/min/1.73m 2 TBHTBH EGFR-NON AF OMANI>60>=60 mL/min/1.73m 2TBHSpecimen (Source)Anatomical Location / LateralityCollection Method / VolumeCollection TimeReceived Time 09/03/2025 5:15 PM EDT1 5:21 PM EDT Narrative CLINISYNC - 09/03/2025 5:40 PM EDT Authorizing ProviderResult TypeResult StatusCorey iKesha DOCLINISYNCFinal Result Performing OrganizationAddressCity/State/ZIP CodePhone Number CLINISYNC [facility] * SRMCOH PROTHROMBIN TIME INR W/O [...] 5:15 PM EDT)ComponentValueRef RangeTest MethodAnalysis TimePerformed AtPathologist GuiztqhegHQLEHZZSLU008(H)200 - 400 mg/dLTBHSpecimen (Source)Anatomical Location / LateralityCollection Method / VolumeCollection TimeReceived Time09/03/2025 5:15 PM EDT1 5:21 PM EDT Narrative CLINISYNC - 09/03/2025 5:45 PM EDT Authorizing ProviderResult TypeResult StatusCorey Kiesha DOCLINISYNCFinal Result Performing OrganizationAddressCity/State/ZIP CodePhone Number [facility]INALMS[facility] * [facility] AST (09/03/2025 5:15 PM EDT) Only the most recent of2 resultswithin the time period is included. ComponentValueRef RangeTest MethodAnalysis TimePerformed AtPathologist Signature ASPARTATE AMINO MGWWRESRBXL3119 - 37 U/LTBHSpecimen (Source)Anatomical Location / LateralityCollection [...] ComponentValueRef RangeTest MethodAnalysis TimePerformed AtPathologist Signature ALANINE HPPFQZYTQELAKJPM2524 - 59 U/LTBHSpecimen (Source)Anatomical Location / LateralityCollection Method / VolumeCollection TimeReceived Time09/03/2025 5:15 PM EDT1 5:21 PM EDT Narrative CLINISYNC - 09/03/2025 5:40 PM EDT Authorizing ProviderResult TypeResult StatusCorey Kiesha DOCLINISYNCFinal Result Performing OrganizationAddressCity/State/ZIP CodePhone Number CLINISYNC [facility] * ALL URIC ACID (09/03/2025 5:15 PM [...] OrganizationAddressCity/State/ZIP CodePhone Number CLINISYNC [facility] * (ABNORMAL) ALL CBC [...] - 35.2 g/dLTBHTBH RDW13.611.0 - 15.0 %TBHTBH [id number] - 450 10 3/uLTBHTBH MPV9.89.5 - 13.5 [...] Kiesha DOCLINISYNCFinal Result Performing OrganizationAddressCity/State/ZIP CodePhone Number [facility] * ALL BUN (09/03/2025 5:15 PM EDT) [...] 5:40 PM EDT Authorizing ProviderResult TypeResult StatusCorey [facility] DOCLINISYNCFinal Result Performing OrganizationAddressty/State/ZIP CodePhone Number CLINISYNC [facility] * (ABNORMAL) [facility] TOTAL PROTEIN 24 HOUR URINE (08/29/2025 8:00 AM EDT)Component ValueRef RangeTest MethodAnalysis TimePerformed AtPathologist SignatureTOTAL PROTEIN URINE REIGMV67.6(H)<=11.9 mg/dLTBHTOTAL VOLUME 24 HOUR FMVFC581aY/24hr TBHTBH TOTAL PROTEIN 24 HOUR DFOAW089.6<=149.1 mg/24hrTBHSpecimen (Source) Anatomical Location / LateralityCollection Method / VolumeCollection Time Received Time08/29/2025 8:00 AM EDT1 10:35 AM EDT Narrative CLINISYNC - 08/29/2025 12:08 PM EDT Authorizing ProviderResult TypeResult StatusGeneric External Data Provider CLINISYNCFinal ResultPerforming OrganizationAddressCity/State/ZIP CodePhone Number [facility] * ALL LDH (08/27/2025 5:00 PM EDT)ComponentValueRef RangeTest MethodAnalysis TimePerformed AtPathologist SignatureLACTATE MNUXCYHNRVBOP40181 - 234 U/LTBH Specimen (Source)Anatomical Location / LateralityCollection Method / Volume Collection TimeReceived Time08/27/2025 5:00 PM EDT1 5:01 PM EDT Narrative CLINISYNC - 08/27/2025 5:19 PM EDT Authorizing ProviderResult TypeResult StatusKristina Lakhwinder NPCLINISYNCFinal ResultPerforming OrganizationAddressCity/State/ZIP CodePhone Number [facility] * URINE CULTURE, ROUTINE (08/25/2025 8:10 AM EDT)ComponentValueRef RangeTest MethodAnalysis TimePerformed AtPathologist SignatureURINE CULTURE, ROUTINE ??Urine Culture, Routine TBHURINE CULTURE, ROUTINEMixed urogenital floraTBHURINE CULTURE, WLFDJHV47,000- 50,000 colony forming units per mLTBHURINE CULTURE, ROUTINEPerformed at: - [facility] [facility], [id number] [place], [place] [id number] URINE CULTURE, ROUTINELab Director: Cm Sandoval PhD, Phone: [phone] Specimen (Source)Anatomical Location / LateralityCollection Method / Volume Collection TimeReceived Time08/25/2025 8:10 AM EDT08/25/2025 8:30 AM EDT Narrative CLINISYNC - 08/26/2025 10:07 PM EDT Authorizing ProviderResult TypeResult StatusGeneric External Data ProviderLAB BLOOD ORDERABLESFinal ResultPerforming OrganizationAddressCity/State/ZIP Code Phone Number [facility] * US OB limited 1+ fetuses (08/12/2025 [...] Junito Alas MD Authorizing ProviderResult TypeResult StatusCorey [facility] PROCEDURES Final Result * AFP, SERUM, OPEN SPINA BIFIDA (07/15/2025 5:07 PM EDT)ComponentValueRef Range Test MethodAnalysis TimePerformed AtPathologist SignatureRESULTSReport.TBHTEST RESULTS:*Screen Negative*.TBHGEST. AGE ON COLLECTION DATE20.6. weeksTBHGESTAT. AGE BASED ONLMP.TBHComment: Recalculations are not recommended when gestational dating by LMP and ultrasound are within 10 days. MATERNAL AGE AT EDD30.7. yrTBHRACECaucasian.QPECIWXFW855. lbsTBHINSULIN DEP DIABETESNo.TBHMULTIPLE GESTATIONNo.TBHAFP VALUE59.2. ng/mLTBHAFP MOM0.95.TBHOSBR RISK 1 [id number].TBHINTERPRETATIONComment.TBHComment: Interpretation: Screen Negative This result is screen [...] Customer Services to discuss available options. ??The [employer] recommends amniocentesis be offered to women age 35 and older. COMMENT:Comment.TBHComment: Amy Ramos, Ph.D., [facility] Director References: Available Upon Request. Multiples Of Median Cutoffs ?For AFP Elevations Hsieh ?? 2.5 ? Black ?2.8 IDD ? 2.0 ? Twins ?4.5 ?Abbreviation Definitions IDD - Insulin Dep Diabetes OSBR - Open Spina Bifida Risk For further inquiries contact [facility] at [phone]. This test was developed and its performance characteristics determined by [employer]. It has not been cleared or approved by the Food and Drug Administration. Performed at: ??TG - [facility] [place], [place] ??[id number] Charge Entry Clerk: Dona Justin [facility], Phone: ??[phone] Specimen (Source)Anatomical Location / LateralityCollection Method / Volume Collection TimeReceived Time07/15/2025 5:07 PM EDT07/15/2025 5:10 PM EDT Narrative JENNIFER - 07/18/2025 1:07 AM EDT N N LMP [id number] 2 17 N 1 Y 146 N N N N N White/ Authorizing ProviderResult TypeResult StatusGeneric External Data ProviderLAB BLOOD ORDERABLESFinal ResultPerforming OrganizationAddressCity/State/ZIP Code Phone Number [facility] * US OB 14+ weeks anatomy scan [...] ?? , PHD at 16-Jul-2025 08:07:07 AM [facility] Procedure Note Sluss, Travis, MD - 07/16/2025 EXAM: US OB 14+ [...] TRAVIS RUEDA II, MD, PHD 08:07:07 AM [facility] Authorizing ProviderResult TypeResult StatusNathan Pop DOIMG OB US PROCEDURES Final Result * Pap Smear (08/18/2024 12:00 AM EDT)Specimen (Source)Anatomical Location / LateralityCollection Method / VolumeCollection TimeReceived TimeSwabCervical swab / Unknown Narrative Authorizing ProviderResult TypeResult StatusFazio Nurse [facility] ObLAB CYTOLOGY ORDERABLESFinal ResultPerforming OrganizationAddressCity/State/ZIP CodePhone Number EXTERNAL LAB * THINPREP PAP AND HPV MRNA E6/E7 W/RFL HPV 16,18/45 (09/03/2023 4:00 PM EDT) Narrative Authorizing ProviderResult TypeResult StatusAmy Mobeetie PALAB BLOOD ORDERABLES Final ResultPerforming OrganizationAddressCity/State/ZIP CodePhone Number EXTERNAL LAB from Last 3 Months or Most Recently Relevant to Health Maintenance Insurance Care Teams Team MemberRelationshipSpecialtyStart DateEnd Date Eliceo Beltran DO [address] [place] [address] PCP - GeneralFamily Medicine02/14/24 Eliceo Beltran DO [address] [place] [address] PCP - Medical [employer] [employer]07/27/2412
--- OUTSIDE RECORDS SUMMARY | 2025-09-23 17:31 | XMS_ITS | Encounter Summary ---
Author Organization [facility] Address [address] [place] [address] Care Team Providers Care Director Of Food And Beverage Services Name Role Phone RubyEliceo Bryant DAY Primary Care Provider Ruby Eliceo Hurtado DO Unavailable [phone] Encounter Details DateTypeDepartmentCare Team (Latest Contact Info)Xygzfpxxvjx78/15/2025Travel Social History Tobacco UseTypesPacks/DayYears UsedDateSmoking Tobacco: NeverSmokeless Tobacco: NeverAlcohol UseStandard Drinks/WeekCommentsNever0 (1 standard drink = 0.6 oz pure alcohol)caffeine: 1-2 cups per day, coffee and [id number] Health Literacy AnswerDate RecordedHow often do you [...] relatives?Once a week12/29/2024How often do you attend restorationism or roman catholic services?Patient pvuvasgj22/03/2025Do you belong to any clubs or organizations such as restorationism groups, unions, fraternal or athletic leodan ups, or school groups?No12/29/2024How often do you attend meetings of the clubs or organizations you belong to?Patient rweogctq68/03/2025re you , , , , never , [...] hard at all12/29/2024PHQ-2AnswerDate RecordedPatient Health Questionnaire-2 Score0 07/30/2025[facility] [place] [facility] Occup[facility] Health - Occupational Stress QuestionnaireAnswerDate RecordedDo you feel stress - tense, restless, nervous, or anxious, or unable to sleep at night because yourmind is troubled all the time - these days?Only a rjbvkv1012/29/2024Exercise Vital SignAnswerDate Recorded On average, how many [...] steady place to sleep or slept in [facility] (including now)?No09/19/2023Housing Stability Vital SignAnswerDate RecordedIn [...] the highest degree you have received?High school ybpdxdkz47/29/2023 Estimated Date of OjdmvloyFcbqjyadOvv19/03/2026ased on last menstrual period of 02/21/2025Sex and Gender InformationValueDate RecordedSex Assigned at BirthNot on fileLegal TraHodpyv43/15/2023 7:18 PM EDTGender IdentityNot on file Sexual OrientationNot on 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 Not on fileNot on fileNot on filedocumented as of this encounter Plan of Treatment DateTypeDepartmentCare Team (Latest Contact Info)Irtqdnmjsgk97/05/2025 3:00 PM ESTRoutine [facility] [place] [facility] [address] [place] [address] Nathan Pop, DO [address] [place] [address] [place] [address] documented as of this encounter Visit Diagnoses Not on filedocumented in this encounter Care Teams Team MemberRelationshipSpecialtyStart DateEnd Date Eliceo Beltran DO [address] [place] [address] PCP - GeneralFamily Medicine02/14/24 Eliceo Beltran DO [address] [place] [address] PCP - Medical [place] [employer]07/27/2412documented as of this encounter
--- OUTSIDE RECORDS SUMMARY | 2025-09-23 17:31 | XMS_ITS | Encounter Summary ---
Author Organization [facility] tem Address [facility] [place] [place]-[id number] [address] [place] [address] Care Team Providers Care Paper Pattern Folder Name Role Phone Cruz Rodríguez MD Primary Care Provider [phone] Encounter Details DateTypeDepartmentCare Team (Latest Contact Info)Dtzfpyfvdhd83/21/2025Orders Only Maternal- Medicine at [facility] [address] [place] [phone] Kayleigh Rizzo, PAAlbinC [address] [address] Essential hypertension affecting in third trimester Social [...] or more drinks on one occasion?Never5ChildcareAnswer Date RtsjrdaeFtzpstfthPeptrfg56/13/2019EmploymentAnswerDate RecordedEmployment Qhxjwsw9605/08/2019Hunger ScreeningAnswerDate RecordedWithin the past 12 months we worried whether our food would run out before we got money to buy more.Never True09/10/2025Within the past 12 months the food we bought just didn't last and we didn't have money to get more.Never True09/10/2025Purpose - LifeAnswerDate RecordedPurpose and direction in kstqQkukxaq68/11/2021Estimated Date of TsvgbncjAlumvenzHpm31/03/2026Based on last menstrual period of 02/21/2025 (Exact Date)Sex and Gender InformationValueDate RecordedSex Assigned at BirthNot on fileLegal HrhFheqxv44/07/2019 2:55 PM ESTGender IdentityNot on fileSexual OrientationNot on filedocumented as of this encounter Plan of Treatment DateTypeDepartmentCare Team (Latest Contact Info)Dfwfzmzgete32/10/2025 3:00 PM ESTTelemedicine Maternal- Medicine at [facility] [address] [place] [address] Kayleigh Rizzo PA-C [address] [address] 10/08/2025 8:00 AM ESTAppointment Maternal Medicine [place] [address] [facility] [address] [place] [address] documented as of this encounter Visit Diagnoses Diagnosis Essential hypertension affecting in third trimester documented in this encounter Care Teams Team MemberRelationshipSpecialtyStart DateEnd Date Cruz Rodríguez MD [address] [place] [address] PCP - GeneralFamily Medicine12/02/18documented as of this encounter
--- OUTSIDE RECORDS SUMMARY | 2025-09-23 17:31 | XMS_ITS | Patient Health Record ---
Author Organization [facility] Address [address] [place] [address] Care Team Providers Care Firefighter Type One Name Role Phone Cruz Rodríguez Primary Care [...] Quad PFS (0.5mL Admin) 18 y/o & heqeeMfrdeco24/30/0613Vxuqtnvc2972 Fluzone Quad PFS (0.5mL Admin) 6 months & atzugPxrnvyc10/17/8598Exthprva0836 Fluzone, 6mo & older, Quad MDV (0.5mL Admin)Eyxedrl1407/16/20233114Sotorrqo4504 Fluzone, 6mo & older, Quad PFS (0.5mL Admin)Efqosvp78/18/2023Contraindications z2023 Fluzone, 6mo & older, Quad PFS (0.5mL Admin)Xmsjgjx37/20/2024Refused Social History Tobacco Use: Social History Observation [...] Status W/U Status Risk Notes Problem Tachycardia (5849263) Tachycardia (R00.0) ActiveconfirmedProblemObesity (613497217)Obesity (BMI 30-39.9) (E66.9)Active confirmed Plan Of Treatment No Information Insurance Providers Payer Name Payer Address Payer Phone Subscriber Number Group Number Insured Name Patient Relationship to Insured Coverage Start Date Coverage End Date [facility] [address] [place] [address] [id number] Driss Woodruff Self - patient is the insured Medical [place] [facility] [address] [place] [phone] [id number], AlexisSelf - patient is the insured Medical (General) History Medical History History ICD Code Tachycardia R00.0 Surgical History Surgery Date(Month/Year) right shoulder surgery endometriosisappendectomyHospitalization History Reason Date(Month/Year) surgeries childbirth
--- OUTSIDE RECORDS SUMMARY | 2025-09-23 17:31 | XMS_ITS | Encounter Summary ---
Author Organization [facility] Address [id number] [address] [place] [address] Care Team Providers Care Supervisor Color Paste Mixing Name Role Phone Cruz Rodríguez MD Primary Care Provider [phone] Encounter Details DateTypeDepartmentCare Team (Latest Contact Info)Cbjtrrwetdp48/27/2025Remote Patient Monitoring Maternal- Medicine at [facility] [address] [place] [phone] Kayleigh Rizzo, PAAlbinC [address] [address] Insulin controlled gestational diabetes mellitus (GDM) in [...] or more drinks on one occasion?Never09/10/2025hildcareAnswer Date EyetuisnWzmejnfkwVweajnp05/13/2019EmploymentAnswerDate RecordedEmployment Mlndsnd2405/08/2019Hunger ScreeningAnswerDate RecordedWithin the past 12 months we worried whether our food would run out before we got money to buy more.Never True09/10/2025Within the past 12 months the food we bought just didn't last and we didn't have money to get more.Never True09/10/2025Purpose - LifeAnswerDate RecordedPurpose and direction in hzofPnqzzzg94/11/2021Estimated Date of MphpggbqBcfhvwaySmr77/03/2026Based on last menstrual period of 02/21/2025 (Exact Date)Sex and Gender InformationValueDate RecordedSex Assigned at BirthNot on fileLegal FhbXmyqoz22/07/2019 2:55 PM ESTGender IdentityNot on fileSexual OrientationNot on filedocumented as of this encounter Progress Notes * Kayleigh Rizzo PA-C - 09/21/2025 12:28 PM EDT Insulin dose increased due to elevated fastings. Kayleigh Rizzo PA-C 09/21/25 1229 documented in this encounter Plan of Treatment DateTypeDepartmentCare Team (Latest Contact Info)Vcteyojvkbl06/10/2025 3:00 PM ESTTelemedicine Maternal- Medicine at [facility] [address] [place] [address] Kayleigh Rizzo PA-C [address] [address] 10/08/2025 8:00 AM ESTAppointment Maternal Medicine [place] [address] [facility] 4 [place] [address] documented as of this encounter Visit Diagnoses Diagnosis Insulin controlled gestational diabetes mellitus (GDM) in third trimester- Primary Essential hypertension affecting in third trimester documented in this encounter Care Teams Team MemberRelationshipSpecialtyStart DateEnd Date Cruz Rodríguez MD [address] [place] [address] PCP - GeneralFamily Medicine12/02/18documented as of this encounter
--- OUTSIDE RECORDS SUMMARY | 2025-09-23 17:31 | XMS_ITS | Encounter Summary ---
Author Organization [facility] tem Address [facility] [id number] [address] [place] [address] Care Team Providers Care Duck Operator Name Role Phone Cruz Rodríguez MD Primary Care Provider [phone] Encounter Details DateTypeDepartmentCare Team (Latest Contact Info)Mbceitevkjw77/27/2025Telephone Maternal- Medicine at [facility] [address] [place] [phone] Verito Gudino, LD [address] [place] [address] Social History Tobacco UseTypesPacks/DayYears UsedDateSmoking Tobacco: NeverSmokeless Tobacco: NeverAlcohol UseStandard Drinks/WeekCommentsNo0 (1 standard drink = 0.6 oz pure alcohol)AUDIT-CAnswerDate RecordedQ1: How often do you have a drink containing alcohol?Never09/10/2025Q2: How many drinks containing alcohol do you have on a typical day when you are drinking?Patient does not drink09/10/2025Q3: How often do you have six or more drinks on one occasion?Never5ChildcareAnswer Date DjyrtuprXwnsglzzeUymqiut46/13/2019EmploymentAnswerDate RecordedEmployment Denqrus7905/08/2019Hunger ScreeningAnswerDate RecordedWithin the past 12 months we worried whether our food would run out before we got money to buy more.Never True09/10/2025Within the past 12 months the food we bought just didn't last and we didn't have money to get more.Never True09/10/2025Purpose - LifeAnswerDate RecordedPurpose and direction in rcbmNxwonfa87/11/2021Estimated Date of MnpggfyyGuwgsqefZaf58/03/2026Based on last menstrual period of 02/21/2025 (Exact Date)Sex and Gender InformationValueDate RecordedSex Assigned at BirthNot on fileLegal MonQmczay00/07/2019 2:55 PM ESTGender IdentityNot on fileSexual OrientationNot on filedocumented as of this encounter Miscellaneous Notes * Telephone Encounter - SILKE Baker - 09/21/2025 4:40 PM EDT Called regarding blood sugar logs from 09/14/25-09/20/25. Kayleigh Rizzo PA-C reviewed your blood sugars and would like you to increase your Glargine in the evening from 17 units to 20 units, no change to your morning dose of 5 units. You had two elevated blood sugars after your evening snack and Kayleigh wondered what you had. Driss says she most likely had some candy, suggested if she have a sweet that it might work better earlier in the day. Continue to send in blood sugar logs weekly. documented in this encounter Plan of Treatment DateTypeDepartmentCare Team (Latest Contact Info)Agsdjdpaado88/10/2025 3:00 PM ESTTelemedicine Maternal- Medicine at [facility] [address] [place] [phone] Kayleigh Rizzo PA-C [address] [facility] [address] [address] 10/08/2025 8:00 AM ESTAppointment Maternal Medicine [place] [address] [facility] 4 [place] [address] documented as of this encounter Visit Diagnoses Diagnosis Insulin controlled gestational diabetes mellitus (GDM) in second trimester documented in this encounter Care Teams Team MemberRelationshipSpecialtyStart DateEnd Date Cruz Rodríguez MD [address] [place] [address] PCP - GeneralFamily Medicine12/02/18documented as of this encounter
--- OUTSIDE RECORDS SUMMARY | 2025-09-23 17:31 | XMS_ITS | Encounter Summary ---
Author Organization [facility] Address [address] [place] [address] Care Team Providers Care Customer Support Advisor Name Role Phone Eliceo Beltran DO Primary Care Provider [phone] CharlottecarolEliceo Unavailable [phone] Encounter Details DateTypeDepartmentCare Team (Latest Contact Info)Fyslifpiyrg32/22/2025amboo flowsheet [facility] [place] [facility] [address] [facility] [place] [address] Nathan Pop DO [address] [facility] [address] [place], [facility] Social History Tobacco UseTypesPacks/DayYears UsedDateSmoking Tobacco: NeverSmokeless Tobacco: NeverAlcohol UseStandard Drinks/WeekCommentsNever0 (1 standard drink = 0.6 oz pure alcohol)caffeine: 1-2 cups per day, coffee and mexL5870 Health Literacy AnswerDate RecordedHow often do you [...] week12/29/2024How often do you attend tenriism or jain services?Patient esnwqpmx94/03/2025Do you belong to any clubs or organizations such as tenriism groups, unions, Sportilia or athletic leodan ups, or school groups?No12/29/2024How often do you attend meetings of the clubs or organizations you belong to?Patient hstwfbtu15/03/2025re you , , , , never , [...] hard at all12/29/2024PHQ-2AnswerDate RecordedPatient Health Questionnaire-2 Score0 07/30/2025[facility] [place] of [facility] Health - Occupational Stress QuestionnaireAnswerDate RecordedDo you feel stress - tense, restless, nervous, or anxious, or unable to sleep at night because yourmind is troubled all the time - these days?Only a ytuvfx9512/29/2024Exercise Vital SignAnswerDate Recorded On average, how many [...] steady place to sleep or slept in [facility] (including now)?No09/19/2023Housing Stability Vital SignAnswerDate RecordedIn the last 12 months, was there a time when you were not able to pay the mortgage or rent on time?No12/29/2024Number of Times Moved in the Last YearNot on file12/29/2024t any time in the past 12 months, were you homeless or living in a snf (including now)?No12/29/2024 EducationAnswerDate RecordedWhat is the highest level of school you have completed or the highest degree you have received?High school fwfeisgn59/29/2023 Estimated Date of NqlfciobYlbmksnjYwe33/03/2026ased on last menstrual period of 02/21/2025Sex and Gender InformationValueDate RecordedSex Assigned at BirthNot on fileLegal JpuLclvlk62/15/2023 7:18 PM EDTGender IdentityNot on file Sexual OrientationNot on 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 Not on fileNot on fileNot on filedocumented as of this encounter Plan of Treatment DateTypeDepartmentCare Team (Latest Contact Info)Mhodqcvnkfy17/05/2025 3:00 PM ESTRoutine [facility] [place] [facility] [address] [facility] [place] [phone] Nathan Pop DO [address] [facility] [place] [address] documented as of this encounter Visit Diagnoses Not on filedocumented in this encounter Care Teams Team MemberRelationshipSpecialtyStart DateEnd Date Eliceo Beltran DO [address] [facility] [address] [place] [address] PCP - GeneralFamily Medicine02/14/24 Eliceo Beltran DO [address] [place] [address] PCP - Medical [place] [employer]07/27/2412documented as of this encounter
--- OUTSIDE RECORDS SUMMARY | 2025-09-23 17:31 | XMS_ITS | Encounter Summary ---
Author Organization [facility] tem Address [id number] [place] [address] Care Team Providers Care Attacher Name Role Phone Cruz Rodríguez MD Primary Care Provider [phone] Encounter Details DateTypeDepartmentCare Team (Latest Contact Info)Qoysflawbjk31/23/2025Orders Only Maternal- Medicine at [facility] [address] [place] [phone] Camila Arciniega, SHIRT OPERATORENCOMPASS HEALTH RE[facility] [address] [facility], [address] [place] [address] Essential hypertension affecting in third trimester Social [...] or more drinks on one occasion?Never5ChildcareAnswer Date HdkuhyvxClbpbozulVetiogl25/13/2019EmploymentAnswerDate RecordedEmployment Lnbgmsg04/13/2019Hunger ScreeningAnswerDate RecordedWithin the past 12 months we worried whether our food would run out before we got money to buy more.Never True09/10/2025Within the past 12 months the food we bought just didn't last and we didn't have money to get more.Never True09/10/2025Purpose - LifeAnswerDate RecordedPurpose and direction in cfdaWzgjblj50/11/2021Estimated Date of FwsxoylnHhaerxnkTou12/03/2026Based on last menstrual period of 02/21/2025 (Exact Date)Sex and Gender InformationValueDate RecordedSex Assigned at BirthNot on fileLegal EeiZjgxmg38/07/2019 2:55 PM ESTGender IdentityNot on fileSexual OrientationNot on filedocumented as of this encounter Plan of Treatment DateTypeDepartmentCare Team (Latest Contact Info)Yqqlgpwegca36/10/2025 3:00 PM ESTTelemedicine Maternal- Medicine at [facility] [address] [place] [address] Kayleigh Rizzo PA-C [address] [address] 10/08/2025 8:00 AM ESTAppointment Maternal Medicine [place] [address] [facility] 4 [place] [address] documented as of this encounter Visit Diagnoses Diagnosis Essential hypertension affecting in third trimester documented in this encounter Care Teams Team MemberRelationshipSpecialtyStart DateEnd Date Cruz Rodríguez MD [address] [place] [address] PCP - GeneralFamily Medicine12/02/18documented as of this encounter
--- OUTSIDE RECORDS SUMMARY | 2025-09-23 17:34 | XMS_ITS | CCD ---
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 Role Phone Unavailable Unavailable POCOPAL QUINTEROS Referring Unavailable CRUZ RODRÍGUEZ Primary Care Unavailable OPAL LARA Referring Unavailable CRUZ RODRÍGUEZ Primary Care Unavailable CRUZ RODRÍGUEZ Primary Care Physician Domo Hodges Unavailable TONIA DIALLO Attending Unavailable RITU RYDER Admitting Unavailable RITU RYDER Attending Unavailable Cruz Rodríguez MD Primary Care Provider Cruz Rodríguez MD Unavailable [phone] Cruz Rodríguez MD Primary Care Provider Cruz Rodríguez MD Unavailable Kita HEAVY ANTIARMOR WEAPONS INFANTRYMAN, Zenobia Unavailable Keesha HEAVY ANTIARMOR WEAPONS INFANTRYMAN, Trista R Unavailable Cruz Rodríguez MD Primary [...] KIESHA, Nathan R Admitting Unavailable Kaftan DO Nay R Unavailable Yomaira BELTRAN Attending Unavailable KAFTAN, G KENNETH Admitting Unavailable KIESHA, Nathan R Attending Unavailable KIESHA, Nathan R Admitting Unavailable KIESHA, Nathan R Admitting Unavailable KIESHA, Nathan R Attending Unavailable KAGREGOR G KENNETH Admitting Unavailable KAFTANYomaira Attending Unavailable KAYomaira BUNDY Admitting Unavailable KAFTAN, Yomaira COOPER Attending Unavailable Cruz Rodríguez MD Primary Care Provider MARBELLA KEANE Attending Unavailable MARBELLA KEANE Admitting Unavailable Yomaira BELTRAN Attending Unavailable KAYomaira BUNDY Admitting Unavailable KIESHA, Nathan R Consulting Unavailable KIESHA, DO Nathan R Consulting Unavailable KIESHA, Nathan R Consulting Unavailable KIESHA, Nathan R Attending Unavailable KIESHA, Nathan R Admitting Unavailable LAKHWINDERANA LAURA DUMONT Attending Unavailable LAKHWINDER, ANA LAURA TYSON Admitting Unavailable KERLINE AUGUSTIN Attending Unavailable KIESHA, NATHAN R Referring Unavailable RODRÍGUEZ CRUZ A Primary Care Unavailable MINE DENISE Attending Unavailable KIESHA, NATHAN R Referring Unavailable RODRÍGUEZ, CRUZ A Primary Care Unavailable Cruz Rodríguez MD Primary Care Provider [phone] KIESHA, NATHAN R Referring Unavailable RODRÍGUEZ, CRUZ A Primary Care Unavailable QUYNH MONROY Attending Unavailable CRUZ RODRÍGUEZ A Referring Unavailable RODRÍGUEZCRUZ A Primary Care Unavailable KANAY BUNDY Attending Unavailable KIESHA, NATHAN Attending Unavailable KIESHA, NATHAN Attending Unavailable KIESHA, NATHAN Attending Unavailable KIESHA, NATHAN Attending Unavailable KAFTNAY MARQUEZ Attending Unavailable KIESHA, NATHAN Attending Unavailable MARBELLA KEANE Attending Unavailable MARBELLA KEANE Attending Unavailable NATHAN POP Attending Unavailable Allergies Allergy ClassificationReported Allergen(s)Allergy TypeDate of OnsetReaction(s) Facility (4 sources)No Known Medication Allergies; Translations: [No Known Medication Allergies]Propensity to adverse reactions (disorder)[facility] Medications Current Medications MedicationDrug Class(es)DatesSig (Normalized)Sig (Original)acetaminophen 325 mg / butalbital 50 mg / caffeine 40 mg oral tablet (14 sources)Barbiturate, Central Nervous System Stimulant, MethylxanthineStart: 02-19-2024 End: 85-45-3125vywp 1 tablet by mouth every six hours for headache nfffbdbdmu-kodjzzeoecvbg-kvvcyiqi 50-325-40 MG tablet Indications: Other migraine without status migrainosus, not intractable Take 1 tablet by mouth every 6 (six) hours if needed for headaches 20 tablet 02/19/2024 05/01/2025 Discontinuedatenolol 25 mg oral tablet (4 sources)beta-Adrenergic BlockerStart: 81-57-0490jotc 1 mg by mouth once daily atenolol 25 mg Tab mg tab(s), Oral, Daily, Refills(s) 0 Start Date: 02/02/21 Status: OrderedStart: 08-06-2017 End: 12-53-4521gfce 1 tablet by mouth once dailyAtenolol 50 mg tablet Discontinued 50 MG PO Daily August 06, 2017 12:00am October 16, 2018 3 :34pmbaclofen suppository 10 mg (CPD) (8 sources)Start: 38-19-3817ikpuxrsv suppository 10 mg (CPD) Indications: High- tone pelvic floor dysfunction , Chronic pelvic pain in female Unwrap and insert one suppository vaginally daily at bedtime. 30 Suppository 2 08/24/2023 Active Comment on above:Unwrap and insert one suppository vaginally daily at bedtime. Blood Glucose Monitoring Suppl (D-Care Glucometer) w/Device kit (15 sources)Start: 08-20-2025 End: 14-90-6470Onpce Glucose Monitoring Suppl (D-Care Glucometer) w/Device kit Indications: Gestational diabetes mellitus (GDM), antepartum, gestational diabetes method of control unspecified ([facility]) , Elevated glucose tolerance test 1 kit Daily Use four times daily to check FSBS. In the morning prior to breakfast & 1 hour after each meal for a total of 4times daily. 1 kit 08/20/2025 08/20/2026 Activecephalexin 500 mg oral capsule (6 sources)Cephalosporin AntibacterialStart: 02-14-2021 End: 75-33-0493xsll 1 capsule by mouth every twelve hoursKeflex 500 mg Cap 500 mg = 1 cap(s), Oral, q12hr, X 7 day(s), # 14 cap(s), Refills(s) 0 Start Date: 07/14/22 Stop Date: 07/21/22 Status: OrderedStart: 03-14-2019 End: 67-38-4946fnss 1 capsule by mouth every twelve hoursCephalexin (Keflex) 500 mg capsule Discontinued 500 MG PO Q12H 14 March 14, 2019 12:00am August 04, 2019 8:18amcyclobenzaprine hydrochloride 5 mg oral tablet (20 sources)Muscle RelaxantStart: 12-30-2024 End: 96-24-1491wlev 1 tablet by mouth in the morning, [...] 30 tablet 12/30/2024 01/09/2025 ActiveStart: 05-01-2023 End: 67-12-6290sqmn 1 tablet by mouth at bedtime as neededcyclobenzaprine (FLEXERIL) 5 mg tablet Indications: Dysmenorrhea , Chronic pelvic pain in female Take 1 tablet by mouth at bedtime as needed. 30 tablet 1 05/01/2023 ActiveStart: 30-44-4057okow 1 tablet by mouth three times daily [...] hydrochloride 4 mg oral tablet (10 sources)Start: 93-02-3922fwbj 1 mg by mouth three times dailycyproheptadine 4 mg Tab mg tab(s), Oral, TID, Refills(s) 0 Start Date: 02/02/21 Status: Ordered Repeat number: 1Dasetta oral tablet (1 source)Start: 65-69-5514pdzr 1 tablet by mouth once dailyDasetta oral tablet 1 tab(s), Oral, Daily, Refill(s) 0, control/menstrual regulation Start Date: 11/23/16 Status: Ordereddocusate sodium 100 mg oral capsule (7 sources)Start: 11-30-2022 End: 46-88-7071ynpf 1 capsule by mouth twice daily as needed for constipation Docusate Sodium (DSS) 100 MG capsule Take 1 capsule (100 mg) by mouth 2 times daily as needed for constipation (Vaginal Delivery) for up to 10 days. 60 capsule 0 12/01/2022 12/31/2022 ActiveStart: 07-14-2022 End: 22-07-1740zucg 1 capsule by mouth twice dailyColace 100 mg Cap 100 mg = 1 cap(s), Oral, BID, X 10 day(s), # 20 cap(s), Refills(s) 0 Start Date: 07/14/22 Stop Date: 07/24/22 Status: Orderedelagolix 150 mg oral tablet (13 sources)Start: 07-16-2023 End: 70-26-7085swnp 1 tablet by mouth once dailyelagolix (ORILISSA) 150 mg tablet Take 1 tablet (150 mg) by mouth once daily. 30 tablet 11 07/16/2023 07/15/2024 ActiveStart: 25-56-0218yrbb 1 tablet by mouth twice dailyOrilissa 200 MG Oral Tablet take 1 tablet by mouth twice a day Quantity: 60 Refills: 4 Ordered: 09-Feb-2022 Charlene Rodriguez DO Start : 09-Feb-2022 ActiveComment on above:Take 1 tablet (150 mg) by mouth once daily.ergocalciferol 0.05 mg oral capsule (1 source)Provitamin D2 CompoundStart: 38-41-3396Vxcbkgt D2 2000 intl units oral capsule Oral, Daily, Refills(s) 0 Start Date: 02/02/21 Status: OrderedEthinyl Estradiol / Levonorgestrel (8 sources)Progestin, Estrogen, Progestin-containing Intrauterine DeviceStart: 04-03-2024 End: 60-49-5914tcbowojawlngve-ethinyl estradiol (Jolessa) 0.15-0.03 MG tablet Indications: Uses control TAKE1 TABLET BY MOUTH EVERY MORNING 91 tablet 3 04/03/2024 08/18/2024 Discontinued (Other)Start: 24-46-8033utunsopyrtwhyf- ethinyl estradiol (Jolessa) 0.15-0.03 MG tablet Indications: Uses control TAKE1 TABLET BY MOUTH EVERY MORNING 91 tablet 3 04/03/2024 ActiveStart: 01-10-2024 End: 47-30-4668smbc 1 tablet by mouth in the morning, then take 1 tablet by mouth once dailylevonorgestrel-ethinyl estradiol (Jolessa) 0.15-0.03 MG tablet Indications: Uses control Take1 tablet by mouth in the morning. Take 1 tablet by mouth daily. 90 tablet 0 01/10/2024 04/09/2024 Activeethinyl estradiol 0.035 mg / norgestimate 0.25 mg oral tablet (4 sources)Progestin, EstrogenStart: 85-94-5344gfgawoxcrrtz-ethinyl estradiol (Ortho-Cyclen) 0.25-35 MG-MCG tablet 1 (one) time each day at the same time. 0 01/15/2023 ActiveStart: 61-08-7909xhcv 1 tablet by mouth once dailyNorgestimate- Ethinyl Estradiol 0.25-35 mg-mcg tablet Active 1 TAB PO Daily August 04, 2019 12:00amMono-Linyah 0.25-35 MG-MCG Oral for 28 Not-TakinghydrOXYzine hydrochloride 25 mg oral tablet (10 sources)AntihistamineStart: 33-42-5517emoy 1 mg by mouth four times daily hydrOXYzine hydrochloride 25 mg Tab mg tab(s), Oral, QID, Refills(s) 0 Start Date: 02/02/21 Status: Ordered Repeat number: 1hyoscyamine sulfate 0.125 mg oral tablet (10 sources)Start: 29-94-1054atii 1 tablet by mouth every six hoursLevsin 0.125 mg SL Tab 0.125 mg = 1 tab(s), Oral, q6hr, # 20 tab(s), Refills(s) 1, Pharmacy: [facility], 161, cm, 03/10/21 11:21:00 EDT, Height/Length Dosing, 56, kg, 03/10/21 11:21:00 EDT, Weight Dosing Start Date: 03/10/21 Status: Ordered Quantity: 20.0 Unit: tab(s) Repeat number: 2ibuprofen 600 mg oral tablet (15 sources)Nonsteroidal Anti-inflammatory DrugStart: 01-23-2022 End: 71-79-5886xgas 1 tablet by mouth every six hoursibuprofen 600 mg Tab 600 mg = 1 tab(s), Oral, q6hr, # 40 tab(s), Refills(s) 0, [facility]: [facility], 157, cm, 01/23/22 7:20:00 EST, Height/Length Dosing, 55, kg, 01/23/22 7:20:00 EST, WeightDosing Start Date: 01/23/22 Status: Ordered Quantity: 40.0 Unit: tab(s) Repeat number: 1insulin glargine-yfgn (Semglee-yfgn) 100 UNIT/ML pen (3 sources)Start: 23-65-0542tonipko glargine-yfgn (Semglee-yfgn) 100 UNIT/ML pen Inject 13 Units under the skin at bedtime 09/15/2025 Activeinsulin glargine-yfgn 100 unit/mL (3 mL) insulin pen (11 sources)Start: 89-72-9760dffaodw glargine-yfgn 100 unit/mL (3 mL) insulin pen Indications: Essential hypertension affecting in third trimester Prime with 2 units and give 5 units every morning and 20 units subQ at bedtime. 15 mL 3 09/21/2025 ActiveStart: 09-17-2025 End: 15-09-7312hsxydhe glargine-yfgn 100 unit/mL (3 mL) insulin pen Indications: Essential hypertension affecting in third trimester Prime with 2 units and give 5 units every morning and 17 units subQ at bedtime. 15 mL 3 09/17/2025 09/21/2025 DiscontinuedStart: 85-32-3569ifdlroh glargine-yfgn 100 unit/mL (3 mL) insulin pen Indications: Essential hypertension affecting in third trimester Prime with 2 units and give 5 units every morning and 17 units subQ at bedtime. 15 mL 3 09/17/2025 ActiveStart: 09-15-2025 End: 92-56-9794savzesx glargine-yfgn 100 unit/mL (3 mL) insulin pen Indications: Essential hypertension affecting in third trimester Prime with 2 units and give 17 units subQ at bedtime. 15 mL 3 09/15/2025 09/17/2025 Discontinued Start: 22-51-8373tbhfwbx glargine-yfgn 100 unit/mL (3 mL) insulin pen Indications: Essential hypertension affecting in third trimester Prime with 2 units and give 17 units subQ at bedtime. 15 mL 3 09/15/2025 ActiveStart: 09-10-2025 End: 05-14-9109fmpzkie glargine-yfgn 100 unit/mL (3 mL) insulin pen Indications: Essential hypertension affecting in third trimester Prime with 2 units and give 13 units subQ at bedtime. 15 mL 3 09/10/2025 09/15/2025 Discontinued Start: 82-58-8772oycnmae glargine-yfgn 100 unit/mL (3 mL) insulin pen Indications: Essential hypertension affecting in third trimester Prime with 2 units and give 13 units subQ at bedtime. 15 mL 3 09/10/2025 ActiveStart: 09-04-2025 End: 03-40-7479qawcyk 2 [IU] by subcutaneous injection once, then inject 10 [IU] by subcutaneous injection at bedtimeinsulin glargine-yfgn 100 unit/mL (3 mL) insulin pen Indications: Diet controlled gestational diabetes mellitus (GDM) in second trimester , Essential hypertension affecting in third trimester Prime with 2 units and give 10 units subQ at bedtime. 15 mL 3 09/04/2025 09/10/2025 DiscontinuedStart: 10-91-3529khroie 2 [IU] by subcutaneous injection once, then inject 10 [IU] by subcutaneous injection at bedtimeinsulin glargine- yfgn 100 unit/mL (3 mL) insulin pen Indications: Diet controlled gestational diabetes mellitus (GDM) in second trimester , Essential hypertension affecting in third trimester Prime with 2 units and give 10 units subQ at bedtime. 15 mL 3 09/04/2025 Activeisopropyl alcohol 0.7 ml/ml medicated pad (15 sources)Start: 59-81-7321Igwxtpe Swabs (Alcohol Prep Pad) 70 % pads Indications: Gestational diabetes mellitus (GDM), antepartum, gestational diabetes method of control unspecified ([facility]) , Elevated glucose tolerance testApply 1 Pad topically Daily Use four times daily to check FSBS. 150 each 3 08/20/2025 Activeiv contrast (will be provided with radiology test) (12 sources)Start: 06-14-0832lp contrast (will be provided with radiology test) [...] 200 mg oral tablet (20 sources)beta-Adrenergic BlockerStart: 89-38-2738xogd 1 tablet by mouth in the morninglabetalol (Normodyne) 200 MG tablet Indications: Gestational Hypertension Take 1 tablet (200 mg) bymouth in the morning and 1 tablet (200 mg) before bedtime. 60 tablet 3 09/03/2025 ActiveStart: 07-30-2025 End: 45-65-1928fudu 1 tablet by mouth in the morninglabetalol (Normodyne) 100 MG tablet Indications: Hypertension, unspecified type Take 1 tablet (100 mg) by mouth in the morning and 1 tablet (100 mg) before bedtime. 60 tablet 5 07/30/2025 09/03/2025 DiscontinuedStart: 11-28-2022 End: 01-85-1395ysbqnygqd (Normodyne,Trandate) injection 20 mgStart: 11-28-2022 End: 85-87-5383ebdbzaxcs (Normodyne,Trandate) injection 20 mgStart: 11-28-2022 End: 77-75-5534nrsvqwktw (Normodyne,Trandate) 5 MG/ML injection - Pyxis ADS Override Pulltake 2 tablets by mouth three times dailylabetaloL (NORMODYNE) 100 mg tablet Take 2 tablets (200 mg total) by mouth 3 (three) times a day. Active magnesium oxide 400 mg oral tablet (9 sources)Start: 05-01-2025 End: 15-14-9868tfdd 1 tablet by mouth once dailymagnesium oxide (Mag-Ox) 400 MG tablet Indications: headache in first trimester ([facility])Take 1 tablet (400 mg) by mouth Daily 30 tablet 3 05/01/2025 05/31/2025 Activemeloxicam 15 mg oral tablet (15 sources)Nonsteroidal Anti-inflammatory DrugStart: 02-02-2021 End: 13-22-0860rqqx 1 tablet by mouth once dailymeloxicam (Mobic) 15 MG tablet Indications: Chronic right shoulder pain , Scapular dyskinesis Take 1 tablet (15 mg) by mouth Daily 30 tablet 3 12/30/2024 05/01/2025 Kdhrvimjccps16 hr metoprolol succinate 25 mg extended release oral tablet (20 sources)beta-Adrenergic BlockerStart: 10-15-2024 End: 11-60-7677jytu 1 tablet by mouth once dailymetoprolol succinate XL (Toprol- XL) 25 MG 24 hr tablet Indications: Hypertension, unspecified type Take 1 tablet by mouth daily 90 tablet 1 12/30/2024 ActiveStart: 16-73-1244jrzy 1 tablet by mouth once dailymetoprolol succinate XL (Toprol-XL) 25 MG 24 hr tablet Indications: Hypertension, unspecified type (CMS/HCC) Take 1 tablet by mouth daily 90 tablet 1 04/23/2024 ActiveStart: 02-83-3612zkid 1 tablet by mouth once dailymetoprolol succinate XL (Toprol-XL) 25 MG 24 hr tablet Indications: Hypertension, unspecified type (CMS/HCC) Take 1 tablet by mouth daily 90 tablet 1 10/23/2023 ActiveStart: 02-27-2023 End: 55-08-2368prxzmcridk succinate ER (TOPROL XL) 25 mg 24 hr tabletnaproxen 500 mg delayed release oral tablet (20 sources)Nonsteroidal Anti-inflammatory DrugStart: 45-89-5291gfxz 1 tablet by mouth twice dailynaproxen 500 mg oral enteric coated tablet 500 mg = 1 tab(s), Oral, BID, # 28 tab(s), Refills(s) 0 Start Date: 11/07/21 Status: Ordered Quantity: 28.0 Unit: tab(s) Repeat number: 1Start: 03-04-2021 End: 46-07-5954iyxc 1 tablet by mouth twice dailynaproxen 500 mg Tab 500 mg = 1 tab(s), Oral, BID, Take one tab by mouth two times a day, # 14 tab(s), Refills(s) 0, Pharmacy: [facility], 157, cm, 03/04/21 7:22:00 EDT, Height/Length Dosing,52, kg, 03/04/21 7:22:00 EDT, Weight Dosing Start Date: 03/04/21 Status: Ordered Quantity: 14.0 Unit:tab(s) Repeat number: 1Start: 11-02-2018 End: 94-58-0071xzhu 1 tablet by mouth twice daily as [...] (5 sources)Dihydropyridine Calcium Channel BlockerStart: 11-28-2022 End: 90-62-9469ZASTyfsxtk XL (Procardia XL) 30 MG 24 hr tablet Take 1 tablet (30 mg) by mouth daily. Do not crush,chew, or split. Do not start before December 02, 2022. 90 tablet 0 12/02/2022 12/02/2023 Activenorethindrone acetate 5 mg oral tablet (20 sources)Start: 05-17-2023 End: 66-36-1717gwbe 2 tablets by mouth once dailynorethindrone (AYGESTIN) 5 mg tablet Take 2 tablets by mouth once daily. 60 tablet 5 01/03/2024 07/01/2024 ActiveStart: 04-11-2023 End: 79-60-7461kzhu 1 tablet by mouth once dailynorethindrone (AYGESTIN) 5 mg tablet Take 1 tablet by mouth once daily. 30 tablet 11 04/11/2023 ActiveStart: 23-23-3651jrxa 1 tablet by mouth once dailyNorethindrone Acetate 5 MG Oral Tablet TAKE 1 TABLET DAILY. Quantity: 1 Refills: 0 Ordered: 21-Jul-2020 Meñofanny Charlene DAY Start : 21-Jul-2020 ActiveComment on above:Take 1 tablet by mouth once daily.Take 2 tablets by mouth once daily.PNV no.95-ferrous fumarate-FA () 28 mg iron- 800 mcg tablet (11 sources)take 1 tablet by mouth in the morningPNV no.95-ferrous fumarate-FA () 28 mg iron- 800 mcg tablet Take 1 tablet by mouth in the morning. Activepramoxine hydrochloride 10 mg/ml rectal foam (2 sources)Start: 07-14-2022 End: 56-82-7742knbk 15 g rectal route twice dailyProctoFoam 1% Foam apply, Rectal, BID for 7 day(s), 15 gm, Refill(s) 0 Start Date: 07/14/22 Stop Date: 07/21/22 Status: OrderedPrenatal Multivitamins with Vitamin B Complex, Vitamin C, Minerals and L-Methylfolate oral capsule (9 sources)Start: 37-59-6883Xnuavxxm Multivitamins with Vitamin B Complex, Vitamin C, Minerals and L-Methylfolate oral capsule 1 cap(s), Oral, Daily, 30 cap(s), Refill(s) 0 Start Date: 07/14/22 Status: Ordered Quantity: 30.0 Unit: cap(s) Repeat number: 1Start: 60-54-1255Gsxgxjlw Multivitamins with Vitamin B Complex, Vitamin C, Minerals and L-Methylfolate oral capsule 1 cap(s), Oral, Daily, 30 cap(s), Refill(s) 0 Start Date: 07/14/22 Status: OrderedPrenatal Vit-Fe Fumarate-FA ( Vitamin) 27-0.8 MG tablet (3 sources) Vit-Fe Fumarate-FA ( Vitamin) 27-0.8 MG tablet Take by mouth. 0 ActivePrenatal Vit-Fe Fumarate-FA ( Vitamins) 28-0.8 MG tablet (20 sources)Start: 05-01-2025 End: 62-89-8010wecz 1 tablet by mouth once dailyPrenatal Vit-Fe Fumarate-FA ( Vitamins) 28-0.8 MG tablet Indications: , unspecified gestational age ([facility]) , Encounter for supervision of normal first in first trimester([facility]) Take 1 tablet by mouth Daily 30 tablet 11 05/01/2025 05/01/2026 ActiveStart: 05-01-2025 End: 51-26-3764ledk 1 tablet by mouth once dailyPrenatal Vit-Fe Fumarate-FA ( Vitamins) 28-0.8 MG tablet Indications: , unspecified gestational age , Encounter for supervision of normal first in first trimester Take 1 tablet by mouth Daily 30 tablet 11 05/01/2025 05/01/2026 Active SUMAtriptan 100 mg oral tablet (10 sources)Serotonin-1b and Serotonin-1d Receptor AgonistStart: 94-43-1429ypcv 1 mg by mouth onceImitrex 100 mg Tab mg tab(s), Oral, Once, Refills(s) 0 Start Date: 02/02/21 Status: Ordered Repeat number: 1Surgical Lubricant Jelly gel (12 sources)Start: 63-32-0986Rlrurupu Lubricant Jelly gel For MRI Female Pelvis, MRI department to provide. Administer intra-vaginal Surgilube immediately prior the MRI procedure (total amount to patient toleranace). 1 g 0 05/17/2023 Active Comment on above:For MRI Female Pelvis, MRI department to provide. Administer intra-vaginal Surgilube immediately prior the MRI procedure (total amount to patient toleranace).tiZANidine 4 mg oral tablet (3 sources)Central alpha-2 Adrenergic AgonistStart: 20-92-0762dfvd 1 mg by mouth every eight hourstiZANidine 4 mg Tab mg tab(s), Oral, q8hr, Refills(s) 0 Start Date: 02/02/21 Status: OrderedtraMADol hydrochloride 50 mg oral tablet (10 sources)Opioid AgonistStart: 22-87-1677xbzl 1 tablet by mouth every four hours as needed for paintraMADol (ULTRAM) 50 mg tablet Indications: Pelvic pain in female Take 1 tablet by mouth every 4 hours as needed for pain. 20 tablet 0 08/30/2023 ActiveStart: 59-60-8609omdt 1 tablet by mouth every six hourstraMADol HCl - 50 MG Oral Tablet TAKE 1 TABLET Every 6 hours Quantity: 20 Refills: 0 Ordered: 18-Aug-2020 Charlene Rodriguez DO Start : 18-Aug-2020 ActiveStart: 03-12-2019 End: 22-82-4811mgrm 1 tablet by mouth every four hours as needed for pain Tramadol 50 mg tablet Discontinued 50 MG PO Q4H as needed for pain 30 5 March 12, 2019 12:00am August 04, 2019 8:19amComment on above:Take 1 tablet by mouth every 4 hours as needed for pain.Vitamin D2 2000 intl units oral capsule (9 sources)Start: 39-15-6315dynd 1 capsule by mouth once dailyVitamin D2 2000 intl units oral capsule Oral, Daily, Refills(s) 0 Start Date: 02/02/21 Status: Ordered Repeat number: 1Start: 95-16-8154Czglnwr D2 2000 intl units oral capsule Oral, Daily, Refills(s) 0 Start Date: 02/02/21 Status: Ordered Completed/Discontinued Medications MedicationDrug Class(es)DatesSig (Normalized)Sig (Original)acetaminophen 325 mg oral tablet (4 sources)Start: 11-30-2022 End: 19-72-9353nztj 1 tablet by mouth every six hours as needed for nlwh960 mg, Oral, Every 6 hours PRN, mild pain (1-3), Starting on Constance 11/30/22 at 0422 Give in addition to any other pain medication ordered at same time for any pain indication. Maximumdose of acetaminophen is 4000 mg from all sources in 24 hours. Alternate ibuprofen and acetaminophen every 3 hours.Start: 11-28-2022 End: 91-36-9937uvifcqwlnjndv (Tylenol) tablet 1,000 mgacetaminophen 300 mg / codeine phosphate 30 mg oral tablet (4 sources)Opioid AgonistStart: 01-19-2025 End: 26-24-3952bten 1 tablet by mouth every six hours for painacetaminophen- codeine (Tylenol w/ Codeine #3) 300-30 MG tablet Indications: Pain in female genitalia on intercourse , Endometriosis Take 1 tablet by mouth every 6 (six) hours if needed for severe pain for up to 5 days 20 tablet 01/19/2025 01/24/2025 ExpiredStart: 07-22-2024 End: 72-28-2654gsyp 1 tablet by mouth every six hours for painacetaminophen- codeine (Tylenol w/ Codeine #3) 300-30 MG tablet Indications: Dysmenorrhea, unspecified Take 1 tablet by mouth every 6 (six) hours if needed for severe pain for up to 5 days 20 tablet 07/22/2024 07/27/2024 Activeascorbic acid 500 mg oral tablet (5 sources)Vitamin CStart: 10-25-2018 End: 94-71-7893kkhs 2 tablets by mouth in the morningASCORBIC ACID WITH ISAURO HIPS 500 MG tablet Take 2 tablets (1,000 mg total) by mouth in the morning.0 10/25/2018 09/04/2025 Discontinued ()aspirin 325 mg / butalbital 50 mg / caffeine 40 mg oral capsule (11 sources)Platelet Aggregation Inhibitor, Barbiturate, Nonsteroidal Anti- inflammatory Drug, Central Nervous System Stimulant, Methylxanthine End: 23-96-6778uade 1 capsule by mouth every four hours as needed qjlglpdipj-okoakce-twvcfupp (Fiorinal) 50-325-40 MG capsule Take 1 capsule [...] spray (2 sources)Standardized Chemical AllergenStart: 11-30-2022 End: 61-56-8043Ixmrchx, As needed, pain, , Starting on Sun11/30/22 at 0608, Apply to perineal area. Patient is capable and may self administer at bedside.betamethasone 3 mg/ml / betamethasone acetate 3 mg/ml injectable suspension (2 sources)CorticosteroidStart: 11-28-2022 End: 10-25-6780naphspimcvjqu acetate-betamethasone sodium phosphate (Celestone) injection 12 mgcalcium chloride 0.0014 meq/ml / potassium chloride 0.004 meq/ml / sodium chloride 0.103 meq/ml / sodium lactate 0.028 meq/ml injectable solution (2 sources)Start: 11-28-2022 End: 18-80-2361oyvg 125 mL intravenously every qkqz240 mL/hr, IntraVENous, Continuous, Starting on Sun11/28/22 at 0100, Pre-Deliverycetirizine hydrochloride 10 mg oral tablet (17 sources)Histamine-1 Receptor AntagonistStart: 06-09-2025 End: 70-43-4964drzb 1 tablet by mouth once dailycetirizine (ZyrTEC ALLERGY) 10 MG tablet Indications: Allergy, sequela Take 1 tablet (10 mg) by mouth Daily 30 tablet 06/09/2025 07/15/2025 DiscontinuedchlordiazePOXIDE hydrochloride 5 mg / clidinium bromide 2.5 mg oral capsule (1 source)Anticholinergic, BenzodiazepineStart: 98-60-2628inrq 1 capsule by mouth every eight hourschlordiazePOXIDE-Clidinium 5-2.5 MG 1 capsule before meals Orally Three times a day for 30 day(s) May, Not-Taking chlorhexidine gluconate 20 mg/ml medicated pad (2 sources)Start: 11-28-2022 End: 10-73-0842kynpy 1 dose topically every six hoursTopical, Every 6 hours, First dose on Sun11/28/22 at 0100, Pre-Delivery Apply to the affected area.&a mp;nbsp; Clean entire abdomen.cholecalciferol 0.125 mg oral capsule (5 sources)Vitamin DStart: 10-25-2018 End: 04-27-2454qeeg 1 capsule by mouth in the morningcholecalciferol, vitamin D3, (VITAMIN D3) 5,000 units capsule Take 1 capsule (5,000 Units total) bymouth in the morning. 0 10/25/2018 09/04/2025 Discontinued ()desogestrel 0.15 mg / ethinyl estradiol 0.03 mg oral tablet (11 sources)Progestin, EstrogenStart: 07-22-2024 End: 46-10-6072obkrmumucwa-ethinyl estradiol (Apri) 0.15-30 MG-MCG tablet Indications: Dysmenorrhea, unspecified Take 1 tablet by mouth Daily 21 tablet 12 10/20/2024 01/19/2025 Discontinued (Other)diphenhydrAMINE (BENADryl) injection 25 mg (2 sources)Start: 11-30-2022 End: 82-46-3564jyvp 25 mg intravenously every six hours as neededdiphenhydrAMINE (BENADryl) injection 25 mgNorethindrone-E.Estradiol-Iron (1 source)EstrogenStart: 10-17-2017 End: 96-14-9074bsuv 1 tablet by mouth once dailyNorethindrone-E.Estradiol-Iron (Lo Loestrin Fe) 1 mg-10 mcg (24)/10 mcg (2) tablet Discontinued 1 TAB PO Daily October 17, 2017 1:00am March 12, 2019 6:15amEthinyl Estradiol / Norethindrone (7 sources)EstrogenStart: 12-01-2018 End: 66-43-0670eceq 0.05 ug by mouth once in the eveningnorethindrone ac-eth estradiol (MICROGESTIN 1/20) 1-20 mg-mcg per tablet Take 1 tablet by mouth in t he evening. 0 12/01/2018 09/04/2025 Discontinued ()Start: 12-01-2018 take 0.05 ug by mouth once in the eveningnorethindrone ac-eth estradiol (MICROGESTIN 12/15) 1-20 mg-mcg per tablet Take 1 tablet by mouth in the evening. 0 12/01/2018 ActiveStart: 57-58-1004faqm 1 tablet by mouth once dailyDasetta oral tablet 1 tab(s), Oral, Daily, Refill(s) 0, control/menstrual regulation Start Date: 11/23/16 Status: Orderedfamotidine 20 mg oral tablet (2 sources)Histamine-2 Receptor AntagonistStart: 11-30-2022 End: 98-06-7165sxcn 20 mg by mouth twice daily as needed for gastroesophageal reflux tpxhxbi99 mg, Oral, 2 times daily PRN, heartburn, Starting on Constance 11/30/22 at 0608, Renal dose per pharmacy for peptic ulcer prophylaxis.ferrous sulfate 325 mg oral tablet (8 sources)Start: 11-30-2022 End: 26-66-4345ahxw 325 mg by mouth twice daily at mg, Oral, 2 times daily with meals, First dose on Constance 11/30/22 at 0800, Start if Hgb le ss than 10. End: 75-11-1248tqlb 1 tablet by mouth in the morningFerrous Sulfate (IRON PO) Take 1 tablet by mouth in the morning. 09/16/2025 Discontinuedtake 1 tablet by mouth in the morningFerrous Sulfate (IRON PO) Take 1 tablet by mouth in the morning. ActiveFLUoxetine 20 mg oral capsule (17 sources)Serotonin Reuptake InhibitorStart: 25-27-0032xoar 1 capsule by mouth once dailyFLUoxetine HCl - 20 MG Oral Capsule TAKE 1 CAPSULE Daily Quantity: 30 Refills: 11 Ordered: 02-Jun-2021 Charlene Rodriguez DO Start : 02-Jun-2021 Active Start: 11-02-2018 End: 80-46-8848ohvd 1 capsule by mouth once dailyFluoxetine (Prozac) 20 mg capsule Discontinued 20 MG PO Daily November 02, 2018 1:00am August 04, 2019 8:19amtake 1 capsule by mouth once dailyFLUoxetine (PROZAC) 10 mg capsule Take 10 mg by mouth once daily. 0 ActiveComment on above:Take 10 mg by mouth once daily.fluticasone propionate 0.05 mg/actuat metered dose nasal spray (16 sources)CorticosteroidStart: 06-22-2025 End: 92-44-8388zjmz 1 spray(s) nasal route once dailyfluticasone (Flonase) 50 MCG/ACT nasal spray Indications: Sinusitis, unspecified chronicity, unspecified location Administer 1 spray into each nostril Daily Shake gently. Before first use, prime pump. After use, clean tip and replace cap. 16 g 12 06/22/2025 07/15/2025 Discontinued End: 69-03-8943ibie 1 spray(s) nasal route in the morningfluticasone (Flonase) 50 MCG/ACT nasal spray Administer 1 spray into affected nostril(s) in the morn ing. 09/16/2025 Discontinued End: 10-89-0017ugqz 1 spray(s) nasal route in the morningfluticasone propionate (FLONASE) 50 mcg/actuation nasal spray Administer 1 spray into each nostril in the morning. 09/04/2025 Discontinued ()lanolin 1000 mg/ml topical cream (2 sources)Start: 11-30-2022 End: 95-09-1510Luwnhkj, As needed, dry skin, nipple discomfort, Starting on Sun11/30/22 at 0608, Apply to affected area.500 ml magnesium sulfate 40 mg/ml injection (4 sources)Start: 11-28-2022 End: 52-18-5837fkblqojoi sulfate 20 GM/500ML infusionStart: 11-28-2022 End: 55-44-4447lfwnhzwpr sulfate 20 GM/500ML infusion - Pyxis ADS Override Pull metoclopramide 10 mg oral tablet (2 sources)Dopamine-2 Receptor AntagonistStart: 50-32-4753cdlu 1 tablet by mouth every eight hoursReglan 10 MG 1 tablet before meals Orally tid for 30 day(s) March, Not-TakingmiSOPROStol 0.2 mg oral tablet (2 sources)Prostaglandin E1 AnalogStart: 11-30-2022 End: 18-01-4261fbRCSSRGgna (Cytotec) tablet 1,000 mcgStart: 11-30-2022 End: 76-72-3073jlUKWIITwxs (Cytotec) tablet 1,000 mcgmiSOPROStol (Cytotec) split tablet 25 mcg (2 sources)Start: 11-28-2022 End: 88-00-5888lcrm 1 tablet vaginal route every four hoursmiSOPROStol (Cytotec) split tablet 25 mcg1 ml morphine sulfate 4 mg/ml injection (4 sources)Opioid AgonistStart: 11-28-2022 End: 46-63-1368ezmqkksg sulfate (PF) injection 4 mgnitrofurantoin, macrocrystals 25 mg / nitrofurantoin, monohydrate 75 mg oral capsule (6 sources)Nitrofuran AntibacterialStart: 88-55-6662Mfuxxmiuowbpjc Monohyd Macro 100 MG Oral Capsule TAKE 1 CAPSULE Other Please take one capsule aftersexual intercourse to prevent UTI Quantity: 30 Refills: 11 Ordered: 01-Apr-2021 Nicholas Chau MD Start : 01-Apr-2021 Active2 ml ondansetron 2 mg/ml injection (12 sources)Serotonin-3 Receptor AntagonistStart: 11-29-2022 End: 88-51-1962sibq 4 mg intravenously every six hours as needed for nausea and vomitingondansetron (Zofran) injection 4 mgStart: 50-63-1058hawr 1 tablet by mouth every six hours as needed for nauseaZofran 4 mg Tab 1 tab(s), Oral, q6hr, PRN Nausea, # 8, Refills(s) 0 Start Date: 07/14/22 Status: Ordered Quantity: 8.0 Unit: Repeat number: 1Start: 81-14-9607xrbo 1 tablet by mouth three times daily Zofran 4 MG 1 tablet Orally THREE TIMES A DAY for 30 day(s) May, Not-Takingondansetron ODT (Zofran-ODT) disintegrating tablet 4 mg (2 sources)Start: 11-30-2022 End: 85-75-9723onre 1 tablet by mouth every eight hours as needed for nausea and vomitingondansetron ODT (Zofran-ODT) disintegrating tablet 4 mgoxytocin (Pitocin) 30 units in 500 mL infusion (8 sources)Start: 11-30-2022 End: 90-13-6284591 paulo-units/min (125 mL/hr), IntraVENous, Continuous, Starting on [...] for 1 hour. Then discontinue.Start: 11-29-2022 End: 87-31-7068uepsvhht (Pitocin) 30 units in 500 mL infusionStart: 11-29-2022 End: 00-63-9925mpqfzcpm (Pitocin) 30 units in 500 mL infusionphenazopyridine hydrochloride 200 mg oral tablet (10 sources)Start: 90-55-4396hpqi 1 tablet by mouth three times dailyPyridium 200 mg Tab 200 mg = 1 tab(s), Oral, TID, Take one tab by mouth three times a day for threedays, # 9 tab(s), Refills(s) 0, Pharmacy: [facility] 858, 157, cm, 03/04/21 7:22:00 EDT, Height/Length Dosing, 52, kg, 03/04/21 7:22:00 EDT, Weight Dosing Start Date: 03/04/21 Status: Ordered Quantity: 9.0 Unit: tab(s) Repeat number: 1predniSONE 10 mg oral tablet (3 sources)Start: 09-10-2023 End: 57-35-6308lwon 2 tablets by mouth twice daily, then [...] 09/10/2023 01/10/2024 Discontinued (Therapy completed)Start: 03-12-2019 End: 70-92-9398xaop 3 tablets by mouth once daily at mealtimePrednisone 20 mg tablet Discontinued 60 MG PO Daily 9 March 12, 2019 12:00am August 04, 2019 8:18am administer with food or milkpromethazine hydrochloride 12.5 mg oral tablet (13 sources)PhenothiazineStart: 05-25-2025 End: 56-81-7921ipoo 1 tablet by mouth every six hours [...] nausea. 30 tablet 2 508/ Discontinued End: 67-68-1270cgdd 12.5 mg rectal route every six hours as needed for nausea and vomitingpromethazine (PHENERGAN) 12.5 mg suppository Insert 1 suppository (12.5 mg total) into the rectum every 6 (six) hours as needed for nausea or vomiting. 09/04/2025 Discontinued ()rizatriptan 5 mg disintegrating oral tablet (5 sources)Serotonin-1b and Serotonin-1d Receptor AgonistStart: 10-24-2018 End: 59-03-4845tcsxjmydfsg PATIENT SUPPORT ASSOCIATE (MAXALT-PATIENT SUPPORT ASSOCIATE) 5 mg disintegrating tablet Dissolve 1 tablet (5 mg total) on tongue asneeded. 0 10/24/2018 09/04/2025 Discontinued ()5 ml sodium chloride 9 mg/ml injection (2 sources)Start: 11-28-2022 End: mL, IntraVENous, Every 12 hours scheduled (2 times per day), First dose on Sun11/28/22 at 0900, Pre-Deliveryvitamin b12 1 mg extended release oral tablet (5 sources)Vitamin C47Mhmlt: 10-25-2018 End: 63-86-2531apgu 1 tablet by mouth in the morningcyanocobalamin, vitamin B- 12, (VITAMIN B-12) 1,000 mcg tablet extended release Take 1 tablet (1 mg total) by mouth in the morning. 0 10/25/2018 09/04/2025 Discontinued ()witch yesi 500 mg/ml medicated pad (2 sources)Start: 11-30-2022 End: 24-27-7867Aoyweyz, As needed, hemorrhoids, For perineal pain or discomfort, Starting on Constance 11/30/22 at 0608, Apply to perineal area. Patient is capable and may self administer at bedside. Problems Active Problems Problem ClassificationProblemDateDocumented DateEpisodic/ChronicAllergic reactions (1 source)Allergic reaction; Translations: [Allergy, unspecified, initial encounter]15-94-5578BtymziieKisrjwj on above:Problem List clean-up per request of Phys. EHR CmteAnxiety disorders (20 sources)Anxiety; Translations: [Anxiety state, unspecified]Onset: 10-08-2020 17-00-6804NztieftQfedxmf on above:Problem List clean-up per request of Phys. EHR CmteCardiac dysrhythmias (20 sources)Paroxysmal tachycardia; Translations: [Paroxysmal tachycardia, unspecified]Onset: 961668-56-2792VvvouaePobmcpwjgwkic of surgical procedures or medical care (1 source)Postoperative retention of urine; Translations: [Other postprocedural complications and disorders of genitourinary system]84-10-3877CpqakcruCfnzmfi on above:Problem List clean-up per request of Phys. EHR CmteDiabetes mellitus without complication (2 sources)Abnormal glucose tolerance test; Translations: [Other abnormal glucose]41-17-3766UzbkjqhtLrrblvnq or abnormal glucose tolerance complicating ; childbirth; or the puerperium (20 sources)Gestational diabetes mellitus; Translations: [Gestational diabetes mellitus in , diet controlled]Onset: 474692-44-6953Dtbolxnu Endometriosis (20 sources)Endometriosis (clinical); Translations: [Endometriosis, site unspecified]Onset: 41-48-9035EmwugrrVzjnkrmpa hypertension (20 sources)Hypertensive disorder; Translations: [Essential (primary) hypertension]Onset: 580643-42-2665MovaaloJyeucjpzjtbvm symptoms and ill- defined conditions (20 sources)Microscopic hematuria; Translations: [Nocturia]46-60-0117Wqvfpazi Comment on above:Problem List clean-up per request of Phys. EHR CmteHeadache; including migraine (20 sources)Migraine; Translations: [Migraine, unspecified, not intractable, without status migrainosus]Onset: 066660-29-8702PyojpjaMyktdot on above: Problem List clean-up per request of Phys. EHR CmteHeadache; including migraine (14 sources)Headache; Translations: [Headache, unspecified]Onset: 01-31-2023 93-86-7951VaknbsfwBsuwvjtpkoz (1 source)Hemorrhoids; Translations: [Unspecified hemorrhoids]Onset: 07-14-2022 EpisodicHypertension complicating ; childbirth and the puerperium (18 sources)Hypertension complicating ; Translations: [Unspecified maternal hypertension, unspecified trimester]Onset: hronic Hypertension complicating ; childbirth and the puerperium (14 sources)Severe pre-eclampsia complicating childbirth; Translations: [Severe pre-eclampsia, third trimester]Onset: 83-89-8641DeigjuhcAhegh disorders and dislocations; trauma-related (20 sources)Disorder of left patellofemoral joint; Translations: [Patellofemoral disorders, left knee]Onset: 649528-75-9508AdyovbcQtenm disorders and dislocations; trauma-related (20 sources)Disorder of right patellofemoral joint; Translations: [Patellofemoral disorders, right knee]Onset: hronic Menstrual disorders (20 sources)Dysmenorrhea; Translations: [Dysmenorrhea, unspecified]Onset: 980179-44-7861RjssckgPwgfii and vomiting (1 source)Nausea and vomiting; Translations: [Nausea with vomiting, unspecified] EpisodicNonspecific chest pain (2 sources)Chest pain; Translations: [Chest pain, unspecified]44-60-3036Rflavmpd Comment on above:Problem List clean-up per request of Phys. EHR CmteNutritional deficiencies (20 sources)Vitamin D deficiency; Translations: [Vitamin D deficiency, unspecified]Onset: 879134-13-6973LlxmcssBgpfl acquired deformities (20 sources)Scoliosis deformity of spine; Translations: [Scoliosis, unspecified] Onset: 070256-18-2432YqasphyAnbom bone disease and musculoskeletal deformities (10 sources)Disorder of okmr53-65-1353BalqlvdxZwzyerl on above:right shoulder right shoulderOther circulatory disease (1 source)Elevated blood-pressure reading without diagnosis of hypertension; Translations: [Elevated blood-pressure reading, without diagnosis of hypertension]Onset: 12-19-0515XzprrjmbJsarv complications of ; puerperium affecting management of mother (1 source)Delayed AND/OR secondary hemorrhage; Translations: [Delayed and secondary hemorrhage]Onset: 62-80-8090RnyrkiilDslzu complications of (1 source)Finding related to ; Translations: [Other specified related conditions, unspecified trimester]Onset: 04-18-8978AvlahhqoVqazk complications of (1 source)Supervision of with other poor reproductive or obstetric history, unspecified trimester; Translations: [Supervision of with other poor reproductive or obstetric history, unspecified trimester]Onset: 00-12-9547UftmefiaWoxek connective tissue disease (1 source)Diastasis recti; Translations: [Separation of muscle (nontraumatic), other site]EpisodicOther female genital disorders (10 sources)Abnormal uterine ectgglwj41-13-0824RfnqgoaDxxbt female genital disorders (1 source)Dyspareunia; Translations: [Other specified dyspareunia]ChronicOther female genital disorders (20 sources)Pain in female genitalia on intercourse; Translations: [Unspecified dyspareunia]Onset: 800531-09-2400EhrfypjAtgdy female genital disorders (1 source)Unspecified dyspareunia; Translations: [Unspecified dyspareunia]Onset: 54-11-8671AjdtaymOidmb female genital disorders (2 sources)Pelvic floor dysfunction; Translations: [Other specified conditions associated with female genital organs and menstrual cycle]EpisodicOther gastrointestinal disorders (18 sources)Constipation; Translations: [Constipation, unspecified]Onset: 559149-70-1623EoxvzkpbMtroqjo on above:Problem List clean-up per request of Phys. EHR CmteOther gastrointestinal disorders (1 source)Constipation, unspecified; Translations: [Constipation, unspecified] Onset: 19-95-8765QrabqbqdVbjak hereditary and degenerative nervous system conditions (20 sources)Finding of scapular structure; Translations: [Other specified extrapyramidal and movement disorders]Onset: 019322-68-9014LxfintaMjvcn nervous system disorders (9 sources)Chronic pain; Translations: [Other chronic pain]Onset: 03-29-2023 85-13-6671MrwoaxuOofbc nervous system disorders (1 source)Other chronic pain; Translations: [Chronic pelvic pain in female] Onset: 90-90-8655FaijgbxCegpr nervous system disorders (1 source)Paresthesia of left upper limb; Translations: [Paresthesia of skin] 20-91-3495XadtabeoQcoeawo on above:Problem List clean-up per request of Phys. EHR CmteOther nervous system disorders (1 source)Tremor; Translations: [Tremor, unspecified]24-34-1141LufgpguwGzoikhf on above:Problem List clean-up per request of Phys. EHR CmteOther nutritional; endocrine; and metabolic disorders (20 sources)Body mass index 30+ - obesity; Translations: [Obesity, unspecified] Onset: 553866-75-6388TgkkqohOipeu and delivery including normal (16 sources); Translations: [Encounter for supervision of normal , unspecified, unspecified trimester]73-77-2232UtcoihaiGaxfr screening for suspected conditions (not mental disorders or infectious disease) (8 sources)Elevated liver enzymes level; Translations: [Other specified abnormal findings of blood chemistry]Onset: 04-18-2022 Resolved: 00-07-2902StlrevdiGigva upper respiratory disease (20 sources)Allergic rhinitis due to pollen; Translations: [Allergic rhinitis due to pollen]Onset: 512103-46-3811YydsepiYpeeu upper respiratory infections (2 sources)Sinusitis; Translations: [Chronic sinusitis, unspecified]06-22-2025 ChronicResidual codes; unclassified (2 sources)Contraception ; Translations: [Other specified health status] 64-08-5628AhzvybuiKkmufbvv codes; unclassified (2 sources)Gestation period, 13 weeks; Translations: [13 weeks gestation of ]11-93-3991WtvfdfoiUkqezcaw codes; unclassified (2 sources)Gestation period, 17 weeks; Translations: [17 weeks gestation of ]82-37-3334MhdrspchDiksxvyh codes; unclassified (2 sources)Gestation period, 20 weeks; Translations: [20 weeks gestation of ]73-92-0186HxozuzlePshshuio codes; unclassified (2 sources)Gestation period, 24 weeks; Translations: [24 weeks gestation of ]43-16-0967HaotwwwdPothuthh codes; unclassified (2 sources)Gestation period, 26 weeks; Translations: [26 weeks gestation of ]86-41-5493FnzuqaqeVtafsovz codes; unclassified (2 sources)Gestation period, 27 weeks; Translations: [27 weeks gestation of ]13-11-2779RjfopznyPfhuinxv codes; unclassified (1 source)Gestation period, 28 weeks; Translations: [28 weeks gestation of ]75-05-3101DgigmqsgZlnjtyod codes; unclassified (1 source)28 weeks gestation of ; Translations: [28 weeks gestation of ]Onset: 22-27-0279GglabyyyCjpkplck codes; unclassified (2 sources)Gestation period, 29 weeks; Translations: [29 weeks gestation of ]31-85-4987VdgmemmqMdjrvrosvwc; intervertebral disc disorders; other back problems (20 sources)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; Translations: [Other cervical disc displacement, unspecified cervical region] Onset: 616809-83-4048GdzomtsBlgcrqavinxn (1 source)Gestational DiabetesOnset: 33-49-6494Xfjkrjbqtwkl (1 source)M consultOnset: 59-92-3545Gqsbtqv tract infections (20 sources)Recurrent urinary tract infection; Translations: [Urinary tract infection, site not specified]Onset: 294300-92-1930Knevgmgq Past or Other Problems Problem ClassificationProblemDateDocumented DateEpisodic/ChronicAbdominal pain (20 sources)Epigastric pain; Translations: [Epigastric pain]Onset: 07-14-2022 EpisodicAcquired foot deformities (20 sources)Acquired equinus deformity of foot; Translations: [Other acquired deformities of unspecified foot]Onset: 136145-52-5874TdcrtymoUxbwrug dysrhythmias (20 sources)Tachycardia; Translations: [Tachycardia, unspecified]Onset: 776679-89-3016AnvhadfvYxwkahgiggp deficiencies (20 sources)Cobalamin deficiency; Translations: [Deficiency of other specified B group vitamins]Onset: 487591-66-8304NalyldctMezys connective tissue disease (20 sources)Posterior calcaneal exostosis; Translations: [Calcaneal spur, unspecified foot]Onset: 482115-51-2645LqnnehruRwrnp disorders of stomach and duodenum (20 sources)Gastroparesis syndrome; Translations: [Gastroparesis]Onset: 623617-94-7937MvvtlabbFbqhp female genital disorders (1 source)Other specified conditions associated with female genital organs and menstrual cycle; Translations:[High-tone pelvic floor dysfunction]Onset: 49-43-3247VcoujyuuYhcfg female genital disorders (15 sources)Chronic pelvic pain of female; Translations: [Chronic pelvic pain in female]Onset: 258387-50-8403ScrjaodqEpzfj gastrointestinal disorders (20 sources)Swallowing painful; Translations: [Dysphagia, unspecified]Onset: 506049-69-2688XkenchacNbzsi gastrointestinal disorders (20 sources)Diarrhea; Translations: [Diarrhea, unspecified]Onset: 03-24-2025 40-57-0787YnfpgsijGqdaf non-traumatic joint disorders (20 sources)Chronic pain of right upper limb; Translations: [Pain in right shoulder]Onset: 700823-05-1386ChkzackfMdxmp nutritional; endocrine; and metabolic disorders (16 sources)Loss of appetite; Translations: [Anorexia]Onset: 05-27-2020 70-59-9868CncytcnpLeagxms (15 sources)Vasovagal syncope; Translations: [Syncope and collapse]Onset: 868926-44-5182IowaxkgeNgxqkyowlgcj (9 sources)PregnancyOnset: 07-14-2022 Resolved: 499282-20-8357TNQBSXH: Highlighted row has been ruled out! Unclassified (1 source)No known active nwuhmrww28-82-2583 Results Test NameValueInterpretationReference RangeFacilityUS OB BPP W NON-STRESS on 38-31[place] [address] Ultrasound Report Signed Patient: DRISS GAMA MR#: [id number] : 1995 Acct:[id number] Age/Sex: 30 / F ADM Date: 09/19/25 Loc: US Attending Dr: Marbella Keane Ordering Physician: Marbella Keane Date of Service: 09/19/25 Procedure(s): US OB BPP w non-stress Accession Number(s): [id number] cc: Marbella Keane; Yomaira BELTRAN [place] [address] Patient Name: DRISS GAMA MRN: [id number] date: 1995 Sex: F Assigned Patient Location: [facility] Current Patient Location: Accession/Order Number: [id number] Exam Date: 09/19/2025 10:06 Report Date: 09/19/2025 12:17 At the request of: MARBELLA KEANE Procedure: US OB BPP w non-stress Ultrasound biophysical profile HISTORY: Gestational diabetes Adequate breathing movement, gross body movement, tone and amniotic fluid volume for total score of 8 out of 8. The amniotic fluid index is 13.8cm within normal limits. The heart rate 141 bpm. US/US OB BPP w non-stress IMPRESSION: Adequate ultrasound biophysical profile Impression dictated by: Jp Morillo M.D. 09/19/2025 12:17 PM Dictation [facility] Electron[facility] authenticated by: [id number] Y Date: 09/19/2025 12:17 Dictated By: Jp Morillo D.O. Signed By: 09/19/25 1219 DD/ 121 TD/TT: Accounts Receivable Executive:TBHRadiology, Radiologist, - 09/19/[address] [address] Ultrasound Report Signed Patient: DRISS GAMA MR#: [id number] : 1995 Acct:[id number] Age/Sex: 30 / F ADM Date: 09/19/25 Loc: US Attending Dr: Marbella Keane Ordering Physician: Marbella Keane Date of Service: 09/19/25 Procedure(s): US OB BPP w non-stress Accession Number(s): [id number] cc: Marbella Keane; Yomaira BELTRAN The [place] [id number] Patient Name: DRISS GAMA MRN: [id number] date: 1995 Sex: F Assigned Patient Location: [facility] Current Patient Location: Accession/Order Number: [id number] Exam Date: 09/19/2025 10:06 Report Date: 09/19/2025 12:17 At the request of: MARBELLA KEANE Procedure: US OB BPP w non-stress Ultrasound biophysical profile HISTORY: Gestational diabetes Adequate breathing movement, gross body movement, tone and amniotic fluid volume for total score of 8 out of 8. The amniotic fluid index is 13.8cm within normal limits. The heart rate 141 bpm. US/US OB BPP w non-stress IMPRESSION: Adequate ultrasound biophysical profile Impression dictated by: Jp Morillo M.D. 09/19/2025 12:17 PM Dictation Location: [employer] Electronically authenticated by: [id number] Y Date: 09/19/2025 12:17 Dictated By: Jp Morillo D.O. Signed By: 09/19/251218 DD/ 16 TD/TT: Accounts Receivable Executive: LANETTE HealthcareRadiology Study observation (narrative)NOMShalonda HealthcareUS OB BPP W NON-STRESSOrdered By: Radiologist Radiology on 63-39-8218XHTY Healthcare Work Phone: Urinalysis macro (dipstick) panel (U)on 09-16-2025 Bilirubin, UANegativeNegative - 4(70) +++ mg/dLMissouri Baptist Medical CenterBlood, UANegative Negative - 50 Teodoro/mcLUNIVERSITY OF UTAH [facility]PITAL HealthcareClarity, UAClearNODE HealthcareColor, UA YellowNODE HealthcareGlucose, UANegativeNegative - 2000(110) ++++ mg/dLMissouri Baptist Medical CenterInterpretation and review of laboratory resultsNormalMissouri Baptist Medical Center Ketones, UANegativeNegative - 160(16) ++++ mg/dLMissouri Baptist Medical CenterLeukocytes, UA NegativeNegative - 500+++ Robinson/mcLMissouri Baptist Medical CenterNitrite, UANegativeNegative - PositiveNODE HealthcarepH, UA6.05 - 9[facility] HealthcareProtein, UANegativeNegative - 2000(20) ++++ mg/dLMissouri Baptist Medical CenterSpec Grav, UA1.0101 - 1.03[facility] Urobilinogen, UA1.00.2 - 12 mg/dLSouthPointe Hospital HealthcareALL BUNon 80-84-1629Zzck nitrogen [Mass/Vol]8 mg/dL7.0 - 18.0 mg/dLMissouri Baptist Medical CenterALL URIC ACIDon 43-65-2916Zrfiw [Mass/Vol]3.5 mg/dL2.6 - 6.0 mg/dLMissouri Baptist Medical CenterCC ALT on 26-85-8021NOP [Catalytic activity/Vol]40 U/L14 - 59 U/LNSSM Health Cardinal Glennon Children's HospitalCCF AST on 43-46-3096XNT [Catalytic activity/Vol]24 U/L15 - 37 U/LNSSM Health Cardinal Glennon Children's HospitalNo Panel Informationon 62-72-9163Vktyqaltbvimle and review of laboratory results AbnormalNOUniversity Health Lakewood Medical CenterCLINISYNCNBarnes-Jewish [facility] CREATININEon 09-03-2025 Creatinine [Mass/Vol]0.42 mg/dLLow0.55 - 1.02 mg/dLMissouri Baptist Medical CenterGFR/1.73 sq M.predicted CKD-EPI (S/P/Bld) [Vol rate/Area]>60>=60 mL/min/1.73m 2NBarnes-Jewish [facility] Hospital EGFR-NON AF WELSH>60>=60 mL/min/1.73m 2NBarnes-[facility] URINE T PROTEIN CREAT RATIOon 62-87-7803EVLQBFDGJD URINE RANDOM<13.01Mlj47.00 - 300.00 mg/dLNODE HealthcareTOTAL PROTEIN URINE RANDOM<6.0NINF - 11.9 mg/dLUNIVERSITY OF UTAH [facility]OSPITAL HealthcareUrinalysis macro (dipstick) panel (U)on 25-25-9964Jymazeagv, UA NegativeNegative - 4(70) +++ mg/dLNODE HealthcareBlood, UANegativeNegative - 50 Teodoro/mcLUNIVERSITY OF UTAH HOSPITAL HealthcareClarity, UAClearNODE HealthcareColor, UAYellowNODE HealthcareGlucose, UANegativeNegative - 2000(110) ++++ mg/dLUNIVERSITY OF UTAH [facility]OSPITAL Healthcare Interpretation and review of laboratory resultsNormalNODE HealthcareKetones, UA NegativeNegative - 160(16) ++++ mg/dLUNIVERSITY OF UTAH [facility]OSPITAL HealthcareLeukocytes, UANegative Negative - 500+++ Robinson/mcLUNIVERSITY OF UTAH HOSPITAL HealthcareNitrite, UANegativeNegative - Positive NOM HealthcarepH, UA6.55 - 9NODE HealthcareProtein, UANegativeNegative - 2000(20) ++++ mg/dLUNIVERSITY OF UTAH [facility]OSPITAL HealthcareSpec Grav, UA1.0051 - 1.03NODE Healthcare Urobilinogen, UA2.00.2 - 12 mg/dLCaroMont Regional Medical CenterTBH TOTAL PROTEIN 24 HOUR URINEon 63-13-6848Hkgtlezqjhybzy and review of laboratory results AbnormalNODE HealthcareProtein (U) [Mass/Vol]22.6 mg/dLHighNINF - 11.9 mg/dLMissouri Baptist Medical CenterTBH TOTAL PROTEIN 24 HOUR LANAU843.6NINFNODE HealthcareTOTAL VOLUME 24 HOUR UCOOR021oT/24hrNODE HealthcareCLINISYNCNMEMORIAL H[facility] HealthcareALL CBC WITH AUTO DIFFon 43-27-6922TUIBYSWBY ABSOLUTE AUTO0.1NOMS HealthcareBasophils/100 WBC (Bld)0.5 %0.2 - 2.0 %NOMS HealthcareEosinophils/100 WBC (Bld)1.4 %0.9 - 7.0 % NOMS HealthcareErythrocyte distribution width (RBC) [Ratio]13 %11.0 - 15.0 %NOMS HealthcareHematocrit (Bld) [Volume fraction]34.4 %Low36.0 - 48.0 %NOMS HealthcareHemoglobin (Bld) [Mass/Vol]11.3 g/dLLow12.0 - 16.0 g/dLMiss[facility] Medical Center IMMATURE GRANULOCYTES ABS AUTO0.59HighNODE HealthcareImmature granulocytes/100 WBC (Bld)4.4 %High0.0 - 0.5 %[facility] CenterInterpretation and review of laboratory resultsAbnormalNODE HealthcareLYMPHOCYTES ABSOLUTE AUTO2.4NOMS HealthcareLymphocytes/100 WBC (Bld)17.8 %Low20.5 - 60.0 %[facility] JoplinH (RBC) [Entitic mass]29.4 pg26.7 - 34.0 pgNOLee's Summit HospitalHC (RBC) [Mass/Vol] 32.8 g/dL29.9 - 35.2 g/dLMercy Hospital JoplinV (RBC) [Entitic vol]89.4 fL81.0 - 99.0 fLMissouri Baptist Medical CenterMONOCYTES ABSOLUTE AUTO1.1HighNODE HealthcareMonocytes/100 WBC (Bld)8.1 %1.7 - 12.0 %[facility] CenterNEUTROPHILS ABSOLUTE SDMC5BadpKZUW HealthcareNeutrophils/100 WBC (Bld)67.8 %43.0 - 75.0 %[facility] CenterPlatelet mean volume (Bld) [Entitic vol]9.6 fL9.5 - 13.5 fLMissouri Baptist Medical CenterTBH EO #0.2NOMS [facility] HospitalTB DKQ355YFOY [facility] RBC3.85LowNOMS [facility] WBC13.3High [facility] CenterCLINISYNCNBarnes-[facility] URINE T PROTEIN CREAT RATIOon 56-40-6503QUYSDYJGHX URINE RANDOM<13.33Oyg63.00 - 300.00 mg/dLMiss[facility] Medical Center Interpretation and review of laboratory resultsAbnormConemaugh Nason Medical CenterTOTAL PROTEIN URINE RANDOM<6.0NINF - 11.9 mg/dLSaint Luke's North Hospital–SmithvilleINISYNFormerly [facility] US OB BPP W NON-STRESSon 64-71-1361[address] [address] Ultrasound Report Signed Patient: DRISS GAMA MR#: [id number] : 1995 Acct:[id number] Age/Sex: 30 / F ADM Date: Loc: [facility] 250-[address]: KUNAL HYATT M.D. Ordering Physician: Marbella Keane Date of Service: 08/27/25 Procedure(s): US OB BPP w non-stress Accession Number(s): [id number] cc: Marbella Keane; Yomaira BELTRAN [place] [address] Patient Name: DRISS GAMA MRN: [facility]:[id number] date: 1995 Sex: F Assigned Patient Location: LAB Current Patient Location: LAB Accession/Order Number: [id number] Exam Date: 08/27/2025 17:37 Report Date: 08/27/2025 [...] Morillo M.D. 08/27/2025 6:02 PM Dictation Location: [place] [address] Electronically authenticated by: [id number] Y Date: 08/27/2025 18:02 Dictated By: Jp Morillo D.O. Signed By: 08/27/251804 DD/ 01 TD/TT: Accounts Receivable Executive:SATNAMadiology, Radiologist, MD - 08/27/2025 [place] [address] Ultrasound Report Signed Patient: DRISS GAMA MR#: [id number] : 1995 Acct:[id number] Age/Sex: 30 / F ADM Date: Loc: [facility] 250-[address]: KUNAL HYATT M.D. Ordering Physician: Marbella Keane Date of Service: 08/27/25 Procedure(s): US OB BPP w non-stress Accession Number(s): [id number] cc: Marbella Keane; Yomaira BELTRAN [place] [id number] Patient Name: DRISS GAMA MRN: [id number] date: 1995 Sex: F Assigned Patient Location: LAB Current Patient Location: LAB Accession/Order Number: [id number] Exam Date: 08/27/2025 17:37 Report Date: 08/27/2025 [...] Morillo M.D. 08/27/2025 6:02 PM Dictation Location: [place] [address] Electronically authenticated by: [id number] Y Date: 08/27/2025 18:02 Dictated By: Jp Morillo D.O. Signed By: 08/27/251804 DD/ 01 TD/TT: Accounts Receivable Executive: LANETTE HealthcareRadiology Study observation (narrative)NOMS HealthcareUS OB BPP W NON-STRESSOrdered By: Radiologist Radiology on 38-93-5274LNVK Healthcare Work Phone: Urinalysis macro (dipstick) panel (U)on 08-27-2025 Bilirubin, UANegativeNegative - 4(70) +++ mg/dLNOMS HealthcareBlood, UANegative Negative - 50 Teodoro/mcLNOMS HealthcareClarity, UAClearNOMS HealthcareColor, UA YellowNOMS HealthcareGlucose, UANegativeNegative - 2000(110) ++++ mg/dLNOMS HealthcareInterpretation and review of laboratory resultsNormalNOMS Healthcare Ketones, UANegativeNegative - 160(16) ++++ mg/dLUNIVERSITY OF [facility]H [facility]PITAL HealthcareLeukocytes, UA NegativeNegative - 500+++ Robinson/mcLNODE HealthcareNitrite, UANegativeNegative - PositiveNOMS HealthcarepH, UA65 - 9NODE HealthcareProtein, UANegativeNegative - 2000(20) ++++ mg/dLUNIVERSITY OF [facility] HealthcareSpec Grav, UA1.0151 - 1.03NODE Healthcare Urobilinogen, UA2.00.2 - 12 mg/dLNODE HealthcareNOMS HealthcareURINE CULTURE, ROUTINEon 26-74-4533Kxkdxqqd identified Cx Nom (U) Urine Culture, Routine NOMS HealthcareBacteria identified Cx Nom (U)Mixed urogenital floraNOMS HealthcareBacteria identified Cx Nom (U)25,000-50,000 colony forming units per mLNOMS HealthcareBacteria identified Cx Nom (U)Performed at: [facility]coThe [facility] NOMS HealthcareBacteria identified Cx Nom (U)[address] [place], [place] [id number] HealthcareBacteria identified Cx Nom (U)General Manager: Cm Sandoval PhD, Phone: [phone] HealthcareCLINISYNCNOMS Ilmzkawuzl9ev hr Glucose Tolerance 100 gm loadon 83-50-2015Bvgpkyt Tolerance Test 2 Usno841 McKitrick HospitalCapillary Glucose POCon 82-97-6164Gncaeov [Mass/Vol]88 mg/jPSrpidv37-34ByyimwDelaware County HospitalComment on above:Performed By: #### [id number] #### [facility] [address] [place], [place] [address]Llt 1 Hron 51-95-9199Zahwrbk [Mass/Vol]152 mg/xFVedyzj31-725 [facility] HospitalComment on above:Performed By: #### [id number] #### [facility] [address] [place], [place] [address]Wex 2 Hron 16-12-0022Cnhthvv [Mass/Vol]169 mg/lDMfhh20-386 [facility] HospitalComment on above:Performed By: #### [id number] #### [facility] [address] [place], [place] [address]Luz 3 Hron 42-65-7607Ntmvanh [Mass/Vol]141 mg/bIRhks33-816 [facility] HospitalComment on above:Performed By: #### [id number] #### [facility] [address] [place], [place] [address]Kox Fastingon 93-02-8114Rliaarb [Mass/Vol]82 mg/cTZxfhki24-64 [facility] HospitalComment on above:Performed By: #### [id number] #### [facility] [address] [place], [place] [address]Zpvzclv tolerance, 1 houron 77-24-3682Afuswee Tolerance Test 1 Ustv384MubLlqiev Health SystemGlucose tolerance, 3 hourson 66-85-0581Dfntagi Tolerance Test 3 Cyvh921ZefUhnhciMcKitrick HospitalGlucose, tolerance fastingon 48-49-4901Qjbbgtu Tolerance Test Riobjwe60DwjZofcro Health SystemNo Panel Informationon 64-45-1207UcpJzkgraMcKitrick HospitalCBC w/ Auto Diffon 08-12-2025 Basophil Absolute0.1 E9/LNormal0.0-0.2FCleveland Clinic Union HospitalComment on above:Performed By: #### [id number] #### [facility] [address] [place], [place] [address]Cphaclxwn/100 WBC (Bld)0.6 %Normal0.0-2.0Del[facility] County HospitalComment on above:Performed By: #### [id number] #### [facility] [address] [place], [place] [address]Dkr Absolute0.1 E9/LNormal0.0-0.5FCleveland Clinic Union Hospital Comment on above:Performed By: #### [id number] #### [facility] [address] [place], [place] [address]Hogkkzpiyrv/100 WBC (Bld)1.0 %Normal0.0-8.0Del[facility] County HospitalComment on above:Performed By: #### [id number] #### [facility] [address] [place], [place] [address]Hswidsqgczz distribution width (RBC) [Ratio]12.9 %Normal 10.9-14.2FCleveland Clinic Union HospitalComment on above:Performed By: #### [id number] #### [facility] [address] [place] [address]Nhxwhtghse (Bld) [Volume fraction]33.1 %Low34.0-46.0Del[facility] County HospitalComment on above:Performed By: #### [id number] #### [facility] [address] [place] [address]Guzedrqvxl (Bld) [Mass/Vol]11.4 g/dLLow12.0-16.0Del[facility] County HospitalComment on above:Performed By: #### [id number] #### [facility] [address] [place] [address]Izibi Absolute2.0 E9/LNormal1.0-4.0[facility] Comment on above:Performed By: #### [id number] #### [facility] [address] [place] [address]Uvfwneglolq/100 WBC (Bld)19.6 %Piphhm67.0-50.0Del[facility] HospitalComment on above:Performed By: #### [id number] #### [facility] [address] [place] [address]XLP (RBC) [Entitic mass]29.9 zdLpvkyi16.0-34.0Del[facility] HospitalComment on above:Performed By: #### [id number] #### [facility] [address] [place] [address]RPSA (RBC) [Mass/Vol]34.4 g/xDRniaxz98.4-36.0Del[facility] HospitalComment on above:Performed By: #### [id number] #### [facility] [address] [place] [address]HLX (RBC) [Entitic vol]86.7 wREkqlfu87.0-100.0Del[facility] HospitalComment on above:Performed By: #### [id number] #### [facility] [address] [place], [place] [address]Dzli Absolute0.5 E9/LNormal0.2-1.0[facility] Comment on above:Performed By: #### [id number] #### [facility] [address] [place], [place] [address]Qsqjccdww/100 WBC (Bld)4.6 %Normal4.0-14.0Del[facility] HospitalComment on above:Performed By: #### [id number] #### [facility] [address] [place] [address]Toajgj Absolute7.5 E9/LNormal2.0-7.5FCleveland Clinic Union Hospital Comment on above:Performed By: #### [id number] #### [facility] [address] [place] [address]Ywxymu Auto74.2 %Ffyulf29.0-75.0[facility] Comment on above:Performed By: #### [id number] #### [facility] [address] [place] [address]Mehcucuf195.0 E9/LYxshxo639.0-500.0[facility] Comment on above:Performed By: #### [id number] #### [facility] [address] [place] [address]Dcpaiaka mean volume (Bld) [Entitic vol]8.1 fLNormal6.4-10.8 [facility] HospitalComment on above:Performed By: #### [id number] #### [facility] [address] [place] [address]EUS0.8 E12/LLow4.3-5.9Del[facility] HospitalComment on above:Performed By: #### [id number] #### [facility] [address] [place] [address]IOL24.1 E9/LNormal4.0-11.0Del[facility] HospitalComment on above:Performed By: #### [id number] #### [facility] [address] [place], [place] [address]Sezhbrinwl 10-23-0381Zrkognbz Lvl7 ng/eWLff08-357AeicirDelaware County HospitalComment on above:Performed By: #### [id number] #### [facility] [address] [place], [place] [address]Jbhyndrx 50-30-1228Qssiih Lvl>22.3Normal>=6.7Fisher Mercy Medical CenterComment on above:Performed By: #### [id number] #### [facility] [address] [place], [place] [address]Wguz Scr Glu 1 Hron 18-98-6188Arshjfr [Mass/Vol]155 mg/dLHigh 55-140Del[facility] County HospitalComment on above:Performed By: #### [id number] #### [facility] [address] [place], [place] [address]Nhnyxyk 1h post 50g loadon 69-62-5387Rpcvxbv, 1 hr PP 50GM dose 155ProMedica Health SystemIronon 76-26-1320Eipz45 microgram/nPVubeps44-448RllazvDelaware County HospitalComment on above:Performed By: #### [id number] #### [facility] [address] [place], [place] [address]Ws Panel Informationon 74-52-2893XMSC HealthcareTIBC Calculated on 46-99-9183WYAR962 microgram/yQWwly499-580GxcznrDelaware County HospitalComment on above:Performed By: #### [id number] #### [facility] [address] [place], [place] [address]Ykejpwoylul [Mass/Vol]455 mg/hKJdhr996-919WdbvxmDelaware County HospitalComment on above:Performed By: #### [id number] #### [facility] [address] [place], [place] [address]HU OB LIMITED 1+ FETUSESon 96-25-9665JR OB LIMITED 1+ FETUSES FINDINGS: Single viable intrauterine with cephalic presentation and antegrade cardiac and activity, 144bpm. Appropriate adequate visualization of the LVOT, RVOT and four-chamber view seen currently. Gestational age of 24 weeks, 4 days with a estimated delivery date of November 28, 2025. IMPRESSION: Appropriate cardiac and outflow tract anatomy, appropriate for this age. TRANSCRIBED BY: ELECTRONICALLY SIGNED BY: Adams Espinosa AvailableComment on above:Order Comment: US OB INCOMPLETE ANATOMY Estimated Date of Delivery: 11/28/25 Gestational Age as of 07/21/2025: 46c0mZdrpmbrmie macro (dipstick) panel (U)on 42-77-2405Lgnqknzmn, UANegativeNegative - 4(70) +++ mg/dLNOMS HealthcareBlood, UANegativeNegative - 50 Teodoro/mcLNOMS HealthcareClarity, UAClearNOMS Healthcare Color, UAYellowNOMS HealthcareGlucose, UANegativeNegative - 2000(110) ++++ mg/dL NOMS HealthcareInterpretation and review of laboratory resultsAbnormalNOMS HealthcareKetones, UANegativeNegative - 160(16) ++++ mg/dLNOMS Healthcare Leukocytes, UANegativeNegative - 500+++ Robinson/mcLNOMS HealthcareNitrite, UA NegativeNegative - PositiveNOMS HealthcarepH, UA65 - 9NOMS HealthcareProtein, UA NegativeNegative - 2000(20) ++++ mg/dLNOMS HealthcareSpec Grav, UA1.011 - 1.03 NOMS HealthcareUrobilinogen, UA1.00.2 - 12 mg/dLNOMS HealthcareVit B12on 10-04-7120Cpzdzaqnd (Vitamin B12) [Mass/Vol]205 pg/fAYvjtys32-8435Pjdeqi Mercy Medical CenterComment on above:Performed By: #### [id number] #### [facility] [address] [place], [place] [address]PCX w/ Auto Diffon 05-59-2376Svqcdkwv Absolute0.0 E9/LNormal 0.0-0.2Fisher Mercy Medical CenterComment on above:Performed By: #### [id number] #### [facility] [address] [place], [place] [address]Zrrplyneg/100 WBC (Bld)0.2 %Normal0.0-2.0Del[facility] County HospitalComment on above:Performed By: #### [id number] #### [facility] [address] [place] [address]Tjp Absolute0.1 E9/LNormal0.0-0.5FCleveland Clinic [facility] Comment on above:Performed By: #### [id number] #### [facility] [address] [place] [address]Rcsahlotawa/100 WBC (Bld)0.5 %Normal0.0-8.0[facility] HospitalComment on above:Performed By: #### [id number] #### [facility] [address] [place] [address]Fznrzpiaxwz distribution width (RBC) [Ratio]13.0 %Normal 10.9-14.2FCleveland Clinic Union HospitalComment on above:Performed By: #### [id number] #### [facility] [address] [place] [address]Njisuyghoy (Bld) [Volume fraction]31.9 %Low34.0-46.0Del[facility] HospitalComment on above:Performed By: #### [id number] #### [facility] [address] [place] [address]Irpsqbjsja (Bld) [Mass/Vol]11.1 g/dLLow12.0-16.0Del[facility] HospitalComment on above:Performed By: #### [id number] #### [facility] [address] [place] [address]Ybvan Absolute2.1 E9/LNormal1.0-4.0[facility] Comment on above:Performed By: #### [id number] #### [facility] [address] [place] [address]Nxopqdejtds/100 WBC (Bld)16.2 %Tbldke77.0-50.0[facility] HospitalComment on above:Performed By: #### [id number] #### [facility] [address] [place] [address]SYH (RBC) [Entitic mass]29.9 gbXzbywk71.0-34.0[facility] HospitalComment on above:Performed By: #### [id number] #### [facility] [address] [place], [place] [address]GXAH (RBC) [Mass/Vol]34.8 g/jQDojhbz92.4-36.0[facility] HospitalComment on above:Performed By: #### [id number] #### [facility] [address] [place], [place] [address]ABQ (RBC) [Entitic vol]85.7 oPBnzmwt98.0-100.0[facility] HospitalComment on above:Performed By: #### [id number] #### [facility] [address] [place] [address]Mvmh Absolute0.9 E9/LNormal0.2-1.0[facility] Comment on above:Performed By: #### [id number] #### [facility] [address] [place] [address]Urtbuqjie/100 WBC (Bld)7.0 %Normal4.0-14.0[facility] HospitalComment on above:Performed By: #### [id number] #### [facility] [address] [place] [address]Pyxpcc Absolute9.7 E9/LHigh2.0-7.5FC[facility] Comment on above:Performed By: #### [id number] #### [facility] [address] [place], [place] [address]Sgdmet Auto76.1 %High36.0-75.0[facility] Comment on above:Performed By: #### [id number] #### [facility] [address] [place], [place] [address]Bitsiynv766.0 E9/UGkzech527.0-500.0[facility] Comment on above:Performed By: #### [id number] #### [facility] [address], [place] [address]Dsgljlms mean volume (Bld) [Entitic vol]8.0 fLNormal6.4-10.8 [facility] HospitalComment on above:Performed By: #### [id number] #### [facility] [address], [place] [address]ZIU6.7 E12/LLow4.3-5.9[facility] HospitalComment on above:Performed By: #### [id number] #### [facility] [address] [place] [address], [place] [address]EGD92.8 E9/LHigh4.0-11.0[facility] HospitalComment on above:Performed By: #### [id number] #### [facility] [address], [place] [address]ZYSlf 07-39-0706TV8 [Moles/Vol]20 mmol/ALhk47-27LvlbhzDelaware County HospitalComment on above:Performed By: #### [id number] #### [facility] [address] [place] [address]Pzqyi gap [Moles/Vol]16 mmol/LNormal6-16Del[facility] HospitalComment on above:Performed By: #### [id number] #### [facility] [address] [place] [address]Zstgcga [Mass/Vol]3.8 g/dLNormal3.3-5.0[facility] HospitalComment on above:Performed By: #### [id number] #### [facility] [address] [place], [place] [address]Ndkcsfe/Globulin [Mass ratio]1.3 {ratio}Normal1.1-2.2FCleveland Clinic Union HospitalComment on above:Performed By: #### [id number] #### [facility] [address] [place] [address], [place] [address]Wje Phos78 Int._Unit/QCcnixu91-23BxqptpDelaware County Hospital Comment on above:Performed By: #### [id number] #### [facility] [address] [place] [address], [place] [address]PEZ46 Int._Unit/LNormal6-46[facility] HospitalComment on above:Performed By: #### [id number] #### [facility] [address], [place] [address]GVH40 Int._Unit/LNormal5-43[facility] HospitalComment on above:Performed By: #### [id number] #### [facility] [address], [place] [address]Lpxd Total0.8 mg/dLNormal0.0-1.1FC[facility] Comment on above:Performed By: #### [id number] #### [facility] [address] [place] [address]QGR/Creat Ratio18 No SarzvAuadwk59-76QqfypoDelaware County HospitalComment on above:Performed By: #### [id number] #### [facility] [address], [place] [address]Ylajqgb [Mass/Vol]8.9 mg/dLNormal8.9-11.1FCleveland Clinic Union HospitalComment on above:Performed By: #### [id number] #### [facility] [address] [place] [address]Penzcapy [Moles/Vol]104 mmol/KRyngee023-223TefyxoDelaware County HospitalComment on above:Performed By: #### [id number] #### [facility] [address] [place], [place] [address]Lfdvocaavf [Mass/Vol]0.6 mg/dLNormal0.5-1.3FCleveland Clinic Union HospitalComment on above:Performed By: #### [id number] #### [facility] [address], [place] [address]Wuykwlyk (S) [Mass/Vol]3.0 g/dLNormal1.4-4.0[facility] HospitalComment on above:Performed By: #### [id number] #### [facility] [address] [place], [place] [address]Aslmrst [Mass/Vol]92 mg/bOAcwlth04-217NxatjiDelaware County HospitalComment on above:Performed By: #### [id number] #### [facility] [address] [place] [address], [place] [address]Lzjykyehj [Moles/Vol]3.7 mmol/LNormal3.5-5.3FCleveland Clinic Union HospitalComment on above:Performed By: #### [id number] #### [facility] [address] [place], [place] [address]Ypwvils [Mass/Vol]6.8 g/dLNormal6.0-7.8[facility] HospitalComment on above:Performed By: #### [id number] #### [facility] [address] [place] [address], [place] [address]Dnxhla [Moles/Vol]136 mmol/BTafigl484-080XeyvxuDelaware County HospitalComment on above:Performed By: #### [id number] #### [facility] [address] [place], [place] [address]Vvkf nitrogen [Mass/Vol]11 mg/dLNormal5-21Del[facility] HospitalComment on above:Performed By: #### [id number] #### [facility] [address] [place], [place] [address]Kgydm Panelon 29-18-3627Asyrosvhhfn [Mass/Vol]239 mg/dLHigh 120-200Del[facility] HospitalComment on above:Performed By: #### [id number] #### [facility] [address] [place], [place] [address]Ygultaybimi in HDL [Mass/Vol]88 mg/dLInvalid Interpretation CodeDelaware County HospitalComment on above:Result Comment: '>= 60 LOW RISK' '<= 40 HIGH RISK'Performed By: #### [id number] #### [facility] [address], [place] [address]Hghrpricljf in LDL [Mass/Vol]144 mg/dLHigh<=129Del[facility] HospitalComment on above:Performed By: #### [id number] #### [facility] [address] [place] [address], [place] [address]Huumuipoajp in VLDL [Mass/Vol]40 mg/dLNormal7-40[facility] HospitalComment on above:Performed By: #### [id number] #### [facility] [address] [place] [address], [place] [address]Lvmwzngjuyma [Mass/Vol]202 mg/dLHigh<=149Del[facility] HospitalComment on above:Performed By: #### [id number] #### [facility] [address], [place] [address]qJVHhp 32-41-9117yTCY420 mL/min/1.73 r6Hctiga>=59Delaware County HospitalComment on above:Performed By: #### [id number] #### [facility] [address], [place] [address]VVP, SERUM, OPEN SPINA BIFIDAon 34-10-9184UGY MOM0.95.[facility] HealthcareAFP VALUE59.2 ng/mL.[facility] HealthcareCOMMENT:Comment.[facility] Comment on above:Amy Ramos, Ph.D., [facility] Director References: Available Upon Request. Multiples Of Median Cutoffs For AFP Elevations Hsieh 2.5 Black 2.8 IDD 2.0 Twins 4.5 Abbreviation Definitions IDD - Insulin Dep Diabetes OSBR - Open Spina Bifida Risk For further inquiries contact [employer] [facility] [employer] at [phone]. This test was developed and its performance characteristics determined by [employer]. It has not been cleared or approved by the Food and Drug Administration. Performed at: [facility] RTP [address], [place], [place] [id number] General Manager: Dona Justin [facility], Phone: [phone] GEST. AGE ON COLLECTION DATE20.6. weeksNOMS HealthcareGESTAT. AGE BASED ONLMP. NOMS HealthcareComment on above:Recalculations are not recommended when gestational dating by LMP and ultrasound are within 10 days. INSULIN DEP DIABETESNo.[facility] HealthcareINTERPRETATIONComment.[facility] Comment on above:Interpretation: Screen Negative [...] Customer Services to discuss available options. The [employer] recommends amniocentesis be offered to women age 35 and older. MATERNAL AGE AT EDD30.7. yrNODE HealthcareMULTIPLE GESTATIONNo.[facility] OSBR RISK 1 [id number].[facility] CenterRACECaucasian.[facility] CenterRESULTSReport. [facility] CenterTEST RESULTS:Negative.[facility] CenterDqotnwvwddKVLIEX211. lbKittitas Valley Healthcare HealthcarePREGNANCY N N LMP [id number] 2 17 N 1 Y 146 N N N N N White/ CLINISYNCNODE HealthcareUS OB 14+ WEEKS ANATOMY SCANon 63-54-9659AG OB 14+ WEEKS ANATOMY SCANEXAM: US OB [...] II, MD, PHD at 16-Jul-2025 08:07:07 AM [facility] TeleradiologyNormalNot AvailableComment on above:Order Comment: US OB ANATOMY SINGLE W US OB CERVICAL LENGTH Estimated Date of Delivery: 11/28/25 Gestational Age as of 06/22/2025: 99s6rVujbqhfnah macro (dipstick) panel (U)on 39-60-3878Amulivmpz, UANegativeNegative - 4(70) +++ mg/dLNOMS HealthcareBlood, UANegativeNegative - 50 Teodoro/mcLNODE HealthcareClarity, UAClearNOMS Healthcare Color, UAYellowNOMS HealthcareGlucose, UANegativeNegative - 2000(110) ++++ mg/dL [facility] HealthcareInterpretation and review of laboratory resultsNormalNOMS HealthcareKetones, UANegativeNegative - 160(16) ++++ mg/dLNOMS Healthcare Leukocytes, UANegativeNegative - 500+++ Robinson/mcLNOMS HealthcareNitrite, UA NegativeNegative - PositiveNOMS HealthcarepH, UA65 - 9NOMS HealthcareProtein, UA NegativeNegative - 2000(20) ++++ mg/dLNOMS HealthcareSpec Grav, UA1.011 - 1.03 NOMS HealthcareUrobilinogen, UA1.00.2 - 12 mg/dLNOMS HealthcareNODE Healthcare RECURRENT VAGINITIS (HTRX)on 16-77-4563EEHUGPFDT THXCNRR2JBRJ Healthcare ATOPOBIUM VAGINAENot detectedNOMS HealthcareBVAB 2,3 (BACTERIAL VAGINOSIS ASSOCIATED BACTERIA 2, 3); MOBILUNCUS MWK2BBLG HealthcareBVAB 2,3 (BACTERIAL VAGINOSIS ASSOCIATED BACTERIA 2, 3); MOBILUNCUS SPPNot detectedNOMS Healthcare RADHA ALBICANS, PARAPSILOSIS, RFBJSJNMJK5UCVZ HealthcareCANDIDA ALBICANS, PARAPSILOSIS, TROPICALISNot detectedNOMS HealthcareCANDIDA RODBSXVF6XSZL HealthcareCANDIDA GLABRATANot detectedNOMS HealthcareCANDIDA LKRLGJ6KOEB HealthcareCANDIDA KRUSEINot detectedNOMS HealthcareCHLAMYDIA NZXNBKUPJHD2RPJI HealthcareCHLAMYDIA TRACHOMATISNot detectedNOMS HealthcareGARDNERELLA VAGINALIS 17.967AbnormalNOMS HealthcareGARDNERELLA VAGINALISDetectedAbnormalNOMS HealthcareInterpretation and review of laboratory resultsAbnormalNOMS Healthcare MEGASPHAERA (TYPES 1, 2)0NOMS HealthcareMEGASPHAERA (TYPES 1, 2)Not detectedNOMS HealthcareMYCOPLASMA WSLBBOVLNQ7HGLV HealthcareMYCOPLASMA GENITALIUMNot detectedNOMS HealthcareNEISSERIA SHYYQTLFPJA2XHBO HealthcareNEISSERIA GONORRHOEAENot detectedNOMS HealthcareTRICHOMONAS GIZLDDLZI0SKLT Healthcare TRICHOMONAS VAGINALISNot detectedNOMS HealthcareNOMS HealthcareUrinalysis macro (dipstick) panel (U)on 75-27-3237Ikvdpbhvo, UANegativeNegative - 4(70) +++ mg/dL NOMS HealthcareBlood, UANegativeNegative - 50 Teodoro/mcLNOMS HealthcareClarity, UA ClearNOMS HealthcareColor, UAYellowNOMS HealthcareGlucose, UANegativeNegative - 2000(110) ++++ mg/dLNOMS HealthcareInterpretation and review of laboratory resultsNormalNOMS HealthcareKetones, UANegativeNegative - 160(16) ++++ mg/dLNOMS HealthcareLeukocytes, UANegativeNegative - 500+++ Robinson/mcLNOMS Healthcare Nitrite, UANegativeNegative - PositiveNOMS HealthcarepH, UA65 - 9N[facility] Healthcare Protein, UANegativeNegative - 2000(20) ++++ mg/dLNOMS HealthcareSpec Grav, UA 1.0051 - 1.03NOMS HealthcareUrobilinogen, UA1.00.2 - 12 mg/dLNOMS HealthcareNODE HealthcareUrinalysis macro (dipstick) panel (U)on 05-58-1324Ncxrzpaqt, UA NegativeNegative - 4(70) +++ mg/dLNOMS HealthcareBlood, UANegativeNegative - 50 Teodroo/mcLNODE HealthcareClarity, UAClearNOMS HealthcareColor, UAYellowNOMS HealthcareGlucose, UANegativeNegative - 2000(110) ++++ mg/dLNODE Healthcare Interpretation and review of laboratory resultsNormalNODE HealthcareKetones, UA NegativeNegative - 160(16) ++++ mg/dLUN[facility] HealthcareLeukocytes, UAPositive Negative - 500+++ Robinson/mcLNODE HealthcareComment on above:smallNitrite, UA NegativeNegative - PositiveNOMS HealthcarepH, UA6.55 - 9NOMS HealthcareProtein, UANegativeNegative - 2000(20) ++++ mg/dLNOMS HealthcareSpec Grav, UA1.011 - 1.03 NOMS HealthcareUrobilinogen, UA0.20.2 - 12 mg/dLNOUniversity Health Lakewood Medical CenterNODE Healthcare BOX TESTon 39-53-2257EJH TEST SENT OUTunityNODE KxbkzknlhiJKF1brdzbOHIX RrytyvjszbOLM04/9/25NODE HealthcareUNITY BOX CLINISYNCCBC without diffon 83-83-4343Muqevrrjdt (Bld) [Volume fraction]39.8 % [facility] SystemHemoglobin (Bld) [Mass/Vol]13.2 g/dLLima Memorial Hospital SystemPlatelets (Bld) [#/Vol]390 10*3/uLMcKitrick HospitalRb Mcv (Fl) By Automated Count84.7[facility] SystemDrug Screen, Urineon 05-04-2025 Amphetamine/MethamphetamineNegativeLima Memorial Hospital SystemBarbituratesNegative [facility] SystemBenzodiazepinesNegativeL[facility] Hospital SystemCocaine MetaboliteNegativeL[facility] Memorial Hospital SystemMethadoneNegativeL[facility] Memorial Hospital SystemOpiatesNegativeL[facility] Hospital SystemOxycodoneNegativeLima Memorial Hospital SystemPhencyclidineNegativeMcKitrick HospitalThc Marijuana, UrineNegative McKitrick HospitalHBV surface Ag IA Qlon 86-90-5101Lvqemuoid B Surface AntigenNegativeMcKitrick HospitalHCV Ab IA Qlon 12-27-1274ZQX Ab Ql (S) Non-ReactiveProAdena Fayette Medical CenterHIV 1+2 Ab+HIV1 p24 Ag IA Qlon 27-09-9386UBT 1&2 AB/AGNon-ReactiveMcKitrick HospitalHemoglobin A1con 82-43-9205YqA0b (Bld) [Mass fraction]5.3 %4.0 - 6.0 %McKitrick HospitalNo Panel Information on 45-08-1923MNBZ HealthcareRubella IGG immune statusOrdered By: Angeline Velasquez on 27-55-4395Fugwido immune IgGProSelect Medical Ohiohealth Rehabilitation Hospital - Dublin SystemType and screenon 36-73-5003Rdc/Rh(D)PositiveProAdena Fayette Medical CenterHCG ( test) Ql (U)on 97-27-2205Bqwfyhuamnffoo and review of laboratory resultsAbnormalUNIV[facility] OF [facility] Healthcare Preg Test, UrPositiveNegativeNOUniversity Health Lakewood Medical CenterNODE HealthcareUS OB TRANSVAGINALon 70-00-0075Ntz [place] [address] Ultrasound Report Signed Patient: DRISS COPE MR#: [id number] : 1995 Acct:[id number] Age/Sex: 30 / F ADM Date: 05/01/25 Loc: US Attending Dr: Nathan Pop D.O. Ordering Physician: Nathan Pop D.O. Date of Service: 05/01/25 Procedure(s): US OB transvaginal Accession Number(s): [id number] cc: Nathan Pop D.O.; Physician,Non-Staff Katherine The [address] [address] Patient Name: DRISS COPE MRN: [id number] date: 1995 Sex: F Assigned Patient Location: US Current Patient Location: US Accession/Order Number: [id number] Exam Date: 05/01/2025 08:57 Report Date: 05/01/2025 [...] Faria M.D. 05/01/2025 9:01 AM Dictation Location: [place] [address] Electronically authenticated by: [id number] Y Date: 05/01/2025 09:01 Dictated By: Will Faria M.D. Signed By: 05/01/2504 DD/ 0 TD/TT: Accounts Receivable Executive:TBHRadiology, Radiologist, - 05/01/2025 [place] [address] Ultrasound Report Signed Patient: DRISS COPE MR#: [id number] : 1995 Acct:[id number] Age/Sex: 30 / F ADM Date: 05/01/25 Loc: US Attending Dr: Nathan Pop D.O. Ordering Physician: Nathan Pop D.O. Date of Service: 05/01/25 Procedure(s): US OB transvaginal Accession Number(s): [id number] cc: Nathan Pop D.O.; Physician,Non-Staff Katherine [place] [address] Patient Name: DRISS COPE MRN: [id number] date: 1995 Sex: F Assigned Patient Location: US Current Patient Location: Accession/Order Number: [id number] Exam Date: 05/01/2025 08:57 Report Date: 05/01/2025 [...] Faria M.D. 05/01/2025 9:01 AM Dictation Location: [place] [address] Electronically authenticated by: [id number] Y Date: 05/01/2025 09:01 Dictated By: Will Faria M.D. Signed By: 05/01/25903 DD/ 0 TD/TT: Accounts Receivable Executive: LANETTE HealthcareRadiology Study observation (narrative)[facility] HealthcareUS OB TRANSVAGINALOrdered By: Radiologist Radiology on 44-84-5196NIKL [employer] Work Phone: Urinalysis macro (dipstick) panel (U)on 05-01-2025 Bilirubin, UANegativeNegative - 4(70) +++ mg/dLNOMS HealthcareBlood, UANegative Negative - 50 Teodoro/mcLNOMS HealthcareClarity, UAClearNOMS HealthcareColor, UA YellowNOMS HealthcareGlucose, UANegativeNegative - 2000(110) ++++ mg/dLNOMS HealthcareInterpretation and review of laboratory resultsNormalNODE Healthcare Ketones, UANegativeNegative - 160(16) ++++ mg/dLNOMS HealthcareLeukocytes, UA NegativeNegative - 500+++ Robinson/mcLNOMS HealthcareNitrite, UANegativeNegative - PositiveNOMS HealthcarepH, UA5.55 - 9NOMS HealthcareProtein, UANegativeNegative - 2000(20) ++++ mg/dLNOMS HealthcareSpec Grav, UA1.021 - 1.03NOMS Healthcare Urobilinogen, UA1.00.2 - 12 mg/dLNOMS HealthcareNOMS HealthcareCHEMISTRYOrdered By: SYSTEM SYSTEM on 83-66-9030Kudqwewcqhah Lvl31.35 ng/mLInvalid Interpretation CodeRemisol ChemComment on above:Result Comment: 'F NON FOLLICULAR = 0.10 - 0.60' 'LUTEAL = 3.00 - 17.5' 'MIDLUTEAL = 3.30 - 18.6' 'POST-MENOPAUSE = 0.10 - 0.40' '-FIRST TRIMESTER = 8.30 - 66.5' 'SECOND TRIMESTER = 18.9 - 66.1' 'THIRD TRIMESTER = 35.8 - 312.4' 'MALES = 0.14 - 2.06'Progesteroneon 45-56-9836Uyjblomoimgx Lvl31.35 ng/mLInvalid Interpretation [facility] CenterComment on above:Result Comment: 'F NON FOLLICULAR = 0.10 - 0.60' 'LUTEAL = 3.00 - 17.5' 'MIDLUTEAL = 3.30 - 18.6' 'POST-MENOPAUSE = 0.10 - 0.40' '-FIRST TRIMESTER = 8.30 - 66.5' 'SECOND TRIMESTER = 18.9 - 66.1' 'THIRD TRIMESTER = 35.8 - 312.4' 'MALES = 0.14 - 2.06'Performed By: #### [id number] #### [facility] [address] [place], [place] [address]Gwctgryjsiqvoh 24-73-3697Kvizwchbarfk1.2 ng/mLNormal.[facility] Physician GroupComment on above:Result Comment: Follicular phase 0.1 - 0.9 Luteal phase 1.8 - 23.9 Ovulation phase 0.1 - 12.0 First trimester 11.0 - 44.3 Second trimester 25.4 - 83.3 Third trimester 58.7 - 214.0 Postmenopausal 0.0 - 0.1 Performed at: - [facility] [id number] General Manager: Cm Sandoval PhD, Phone: [phone] PERFORMED BY: [address] [place] [address] PATHOLOGIST SORT LINE ARNULFO THOMAS M.D.Performed By: #### PROG #### [facility] ,[place] Transvaginal Non-OBon 81-85-8160MH Transvaginal Non-OBExam Date/Time: 01/22/2025 16:22 EST Reason for Exam: N94.6 Report PLEASE SEE US Pelvis Non-OB Complete REPORT DATED: 01/22/2025. Ordering Provider: Nathan POP FINAL REPORT Dictated: 01/27/2025 10:11 am Bruno Foy MD Signed (Electronic Signature): 01/27/2025 10:11 am Signed by: Bruno Foy MD Transcribed by: ELOISA Technologist: Filiberto [facility] CenterUS Pelvis Non-OB Completeon 60-80-7737TI Pelvis Non-OB CompleteExam Date/Time: 01/22/2025 16:24 EST [...] Gonzalez MD Transcribed by: ELOISA Technologist: Filiberto [facility] CenterMILADYSAVANNAH HPV,AGE GDLNon 54-66-2867ORW GDLN ACOG TESTINGNote.NOMS HealthcareComment on above:TESTS RESULT FLAG UNITS REF RANGE LAB Clinician Provided Cytology Information Source.............Cervix;Endocervix No. of containers..01 ThinPrep Vial Age Gina MCFADDEN Sarah... FLAG LEGEND: L-Low Normal,H-High Normal,LL-Alert Low,HH-Alert High <-Panic Low,>-Panic High,A-Abnormal,AA-Critical Abnormal Performed at: 01 =G [facility] [place] [address] Loren Oneal MD, IGP, RFX APTIMA HPV ASCUNote.NOMS HealthcareComment on above:TESTS RESULT FLAG UNITS REF RANGE LAB DIAGNOSIS: 02 NEGATIVE FOR INTRAEPITHELIAL LESION OR MALIGNANCY. Specimen adequacy: 02 Satisfactory for evaluation. Endocervical and/or squamous metaplastic cells (endocervical component) are present. Performed by: Sophia Calzada, Hat Trimmer ([facility]) . 02 Note: Note 02 The [...] <-Panic Low,>-Panic High,A-Abnormal,AA-Critical Abnormal Performed at: [address] [address] Loren Oneal MD, Performed at: =G - [facility] [id number] General Manager: Loren Oneal MD, Phone: [phone] Performed at: [facility] [id number] General Manager: Loren Oneal MD, Phone: [phone] BRUSH-SPATULA CERVIX ENDOCERVIX [facility] 04-06-8499NYQMUzlbpbfgz (WHQ) DRISS COPE ([id number]) 1995 F Date Time Provider Department 04/29/24 [...] [I10] Encounter Status:Closed by CHRISTA GARCES on 04/29/24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 Please cancel surgery and all pre and [...] Encounter Status:Closed by ANNA DE LEON on 04/25/24[facility] 29-69-1983ZIUDKpdpwumyn (WHQ) DRISS COPE ([id number]) 1995 F Date Time Provider Department 12/12/23 CHARLENE RODRIGUEZ Herrera During your visit today, we recorded the [...] [I10] Encounter Status:Closed by CHRISTA GARCES on 12/12/23[facility] 62-54-5242LQZDRhrgcj Visit (BASIL) DRISS COPE ([id number]) 1995 F Date Time Provider Department 12/10/23 10:30 AM CHARLENE RODRIGUEZ During your visit today, we recorded the following information about you: Pulse Blood pressure Weight 98/minute 124/84 68.9 kg Charlene Rodriguez DO 12/10/2023 3:14 PM Signed [facility] SECTION FOR MINIMALLY INVASIVE GYNECOLOGIC SURGERY OUTPATIENT VISIT DATE 12/10/2023 OUTPATIENT VISIT TYPE Follow-up visit PRIMARY CARE PHYSICIAN: Cruz Rodríguez [address] [place] [address] REFERRING PHYSICIAN: Self CHIEF COMPLAINT: No chief [...] MRI: no evidence of Past Gynecologic History: Group Cio History LMP: 07/08/2023 (Exact Date), Having periods Age at Menarche: 14 Age at First : 27 Age at Menopause: Group Cio History Comments: Sexual Activity: Never; No partner [...] Skin: Skin color, texture (more content not included)...NormalCrystal Clinic Orthopedic Centerology Cervical or vaginal smear or scraping studyon 05-42-1371PAVJ HealthcareCNPNon 73-06-6351TIEPYbvkddfjp ([facility]) DRISS COPE ([id number]) 1995 F Date Time Provider Department 08/02/23 CHARLENE RODRIGUEZ [facility] During your visit today, we recorded the [...] Signed PA for orilissa completed via Cover [employer]. Driss Anatoliy (Morales: [id number]) - [id number] Orilissa 150MG tablets Status: Sent To Plan [...] [I10] Encounter Status:Closed by LESLEY LYNN on 08/02/23[facility] 30-07-8817ZEDNNhezhz Visit (BASIL) DRISS COPE ([id number]) 1995 F Date Time Provider Department 07/16/23 11:30 AM CHARLENE RODRIGUEZ During your visit today, we recorded the following information about you: Blood pressure Last Period 136/90 07/08/23 Charlene Rodriguez DO 07/16/2023 12:41 PM Signed [facility] SECTION FOR MINIMALLY INVASIVE GYNECOLOGIC SURGERY OUTPATIENT VISIT DATE 07/16/2023 OUTPATIENT VISIT TYPE Follow-up visit PRIMARY CARE PHYSICIAN: Cruz Rodríguez [address] [place] [address] REFERRING PHYSICIAN: Cruz Rodríguez CHIEF COMPLAINT: No [...] additional bowel lesions identified Past Gynecologic History: Group Cio History LMP: 07/08/2023 (Exact Date), Having periods Age at Menarche: 14 Age at First : 27 Age at Menopause: Group Cio History Comments: Sexual Activity: Never; No partner [...] POSITIVES IN BOLD Cons (more content not included)...NormalThe University of Toledo Medical CenterI FEMALE PELVIS WO/W IVCONon 92-28-7811VRL FEMALE PELVIS WO/W IVCON* * *Final Report* [...] additional findings. IMPRESSION: No deep infiltrating endometriosis. Accounts Receivable Executive: PSCTracey Transcribe Date/Time: Jun 12 2023 2:54P Dictated by : ASHLEY DUKE MD This examination was interpreted and the report reviewed and electronically signed by: SONIDO FLAHERTY MD on Jun 12 2023 4:51PM EST [id number] HospitalCNPNon 46-78-1904HXELTrfvrolda (GYNMN) ANATOLIYDRISS ([id number]) 1995 F Date Time Provider Department 05/11/23 CHARLENE RODRIGUEZ GYNPA During your visit today, we recorded the following information about you: Tawana DumontKenton [facility] 05/11/2023 1:21 PM Signed Reason for call: [...] Takes aygestin 5mg daily. She did not pickling solution maker flexeril. Encourage to pickling solution maker the flexeril as this will help with the cramping. Reviewed red flag bleeding symptoms that require trip to ER (soaking greater than one overnight pad per hour, chest pain, shortness of breath, fatigue, palpitations).. Advised keep appt. Gives verbal understanding. Appointments for Next 60 Days Date Time Provider Location Dept Phone 05/17/2023 1:00 PM CHARLENE RODRIGUEZ [facility] [phone] Christa Suárez, RN Allergies As of Date: 05/11/2023 (No Known Allergies) Date Reviewed: 05/09/2023 Reviewed by: Srinivasa Downs APRN.WINDOWS CONSULTANT - Fully Assessed Reason for Visit: Vaginal [...] [I10] Encounter Status:Closed by CHRISTA WILLINGHAM on 05/11/23[facility] 04-09-3267JVUTFcfuxw Visit ([facility]) DRISS COPE ([id number]) 1995 F Date Time Provider Department 05/01/23 10:30 AM SRINIVASA DOWNS JA During your visit today, we recorded the following information about you: Blood pressure Weight Height Last Period 148/64 64.9 kg 1.575 m 04/22/23 Srinivasa Downs APRN.WINDOWS CONSULTANT 05/09/2023 11:46 AM Signed Driss Cope is a 28 year old female who presents for problem visit for pain HPI: Pain is week before period and week of period. Worse on her period for every day she's bleeding Urinary - No symptoms GI - Always constipated. No meds [place] - painful always Pain is on left [...] L0 SAB0 IAB0 Ectopic0 Multiple0 Live Births0 Group Cio History LMP: 03/26/2023 (Approximate), Having periods Age at Menarche: Age at First : Age at Menopause: Group Cio History Comments: Sexual Activity: Never; No partner [...] physical therapy - or can go locally pelvicCDI Bioscienceab.[employer] Trial flexeril at bedtime Can consider [...] physical therapy - or can go locally pelvicCDI Bioscienceab.[employer] Trial flexeril at bedtime Can consider Baclofen suppositories - let me know if you want to trial after you go to PT Contin (more content not included)...NormalTrinity Health SystemCHEMISTRY Ordered By: SYSTEM SYSTEM on 94-98-7941Siwtfkr [Mass/Vol]4.3 g/dLNormal3.3 - 5.0 gm/dLFT RemisolAlbumin/Globulin [Mass ratio]1.2 {ratio}Normal1.1 - 2.2FTMC RemisolALP [...] [Mass/Vol]8.8 mg/dLLow8.9 - 11.1 mg/dLFTMC RemisolChloride [Moles/Vol]100 mmol/HJqt550 - 111 mmol/LFTMC RemisolCO2 [Moles/Vol]24 mmol/L Yntzwr65 - 31 mmol/LFTMC RemisolCreatinine [Mass/Vol]1.0 mg/dLNormal0.5 - 1.3 mg/dLFTMC RemisolGFR/1.73 sq M.predicted among blacks MDRD (S/P/Bld) [Vol rate/Area]mL/min/1.73 u5Cizpfb>=59mL/min/1.73 m2[facility] Chem SGFR/1.73 sq M.predicted among non-blacks MDRD (S/P/Bld) [Vol rate/Area]mL/min/1.73 x2Rujkxa >=59mL/min/1.73 m2[facility] Chem SGlobulin (S) [Mass/Vol]3.6 g/dLNormal1.4 - 4.0 gm/dLFTMC RemisolGlucose [Mass/Vol]104 mg/qMLdbeiz27 - 199 mg/dLFTMC Remisol Potassium [Moles/Vol]3.6 mmol/LNormal3.5 - 5.3 mmol/LFTMC RemisolProtein [Mass/Vol]7.9 g/dLHigh6.0 - 7.8 gm/dLFTMC RemisolSodium [Moles/Vol]134 mmol/LLow 135 - 145 mmol/LFTMC RemisolUrea nitrogen [Mass/Vol]10 mg/dLNormal5 - 21 mg/dL [facility] RemisolUrea nitrogen/Creatinine [Mass ratio]10 mg/kjDksssa84 - 20FT[facility] RemisolHEMATOLOGYOrdered By: Amairani [place] on 20-79-6904Elpfrkshpdvz Ql (Bld) Present (01/31/23 2:10 PM)NormalFTMC HemeManSSErythrocyte [...] fLNormal6.4 - 10.8 fLFTMC HemeAutoSSPlatelets (Bld) [#/Vol]471.0 E9/KQordgt948.0 - 500.0 E9/LFTMC HemeAutoSSRBC (Bld) [#/Vol]4.3 E12/LNormal4.3 [...] - 0.5 E9/L [facility] HemeAutoSSLymphocytes/100 WBC (Bld)31.7 %Yrkxzt80.0 - 50.0 %[facility] HemeAutoSS Lymphocytes/Leukocytes Auto (Bld) [Pure # fraction]2.4 E9/LNormal1.0 - 4.0 E9/L [facility] HemeAutoSSMonocytes/100 WBC (Bld)9.1 %Normal4.0 - 14.0 %[facility] HemeAutoSS Monocytes/Leukocytes Auto (Bld) [Pure # fraction]0.7 E9/LNormal0.2 - 1.0 E9/L [facility] HemeAutoSSNeutrophils/100 WBC (Bld)57.4 %Rwqnoc59.0 - 75.0 %[facility] HemeAutoSS Neutrophils/Leukocytes Auto (Bld) [Pure # fraction]4.3 E9/LNormal2.0 - 7.5 E9/L [facility] HemeAutoSSSEROLOGYOrdered By: Patricia Newton on 05-08-8883TRS.beta subunit (U) [Moles/Vol]NegativeNormalFT Man SeroURINALYSISOrdered By: Solomon Leal on 66-54-5961Egyfwtswj Ql (U)Negative (01/31/23 1:57 PM)NormalNegativeFTMC UA Auto SSClarity (U)Clear (01/31/23 1:57 PM)NormalClearFTMC UA Auto SSColor (U)Yellow (01/31/23 1:57 PM)NormalYellowFTMC UA Auto SSEpithelial cells.squamous LM.HPF (Urine sed) [#/Area]3-4 /HPFNormal0-2/HPFFTMC UA Auto SSGlucose Test strip (U) [Mass/Vol]Negative (01/31/23 1:57 PM)NormalNegativeBAILEY MEDICAL [facility] [place] UA Auto SSHemoglobin Ql (U)Negative (01/31/23 1:57 PM)NormalNegativeFT UA Auto SSKetones (U) [Mass/Vol]Negative (01/31/23 1:57 PM)NormalNegativeBAILEY MEDICAL CENTER – [place] UA Auto SSLithium.plasma/[place].RBC (Bld) [Mass ratio]0-3 /HPFNormal0-3/HPFFTMC UA Auto SSNitrite Ql (U)Negative (01/31/23 1:57 PM)NormalNegativeBAILEY MEDICAL CENTER [facility] [place] UA Auto SSpH (U)6.0 *NA* (01/31/23 1:57 PM)Invalid Interpretation Code5.0 - 9.0[facility] [place] [place] UA Auto SSProtein (U) [Mass/Vol]Negative (01/31/23 1:57 PM)NormalNegativeBAILEY MEDICAL CENTER – [place] UA Auto SSSpecific gravity (U) [Rel density] 1.010 *NA* (01/31/23 1:57 PM)Invalid Interpretation Code1.005 - 1.030[facility] [place] [place] UA Auto SSUA Spec DescClean Catch (01/31/23 1:57 PM)NormalBAILEY MEDICAL [facility]ENTER – [place] UA Auto SSUrobilinogen Qn (U)0.2581587 {Aspen'U}/dL Normal0.0 - 1.0 EU/dLBAILEY MEDICAL CENTER – [place] UA Auto SSWBC Auto Ql (U)Negative (01/31/23 1:57 PM)NormalNegativeBAILEY MEDICAL [facility]ENTER [facility] [place] UA Auto SSWBC LM.HPF (Urine sed) [#/Area]0-5 /HPFNormal0-5/HPFFT UA Auto SSBLOOD BANKOrdered By: Teena Quiroz on 24-71-9363LIY/Rh InterpPositiveInvalid Interpretation CodeBAILEY MEDICAL [facility]ENTER – [place], [place] BB SubsectionABSC Gel InterpNegative (12/30/22 11:28 AM)NormalBAILEY MEDICAL [facility]ENTER – [place] BB SubsectionCHEMISTRYOrdered By: SYSTEM SYSTEM on 86-46-9232Gvqyq gap [Moles/Vol]12 mmol/LNormal6 - 16 mEq/LFTMC RemisolCalcium [Mass/Vol]8.6 mg/dLLow8.9 - 11.1 mg/dLFTMC RemisolChloride [Moles/Vol]103 mmol/L Mipncs349 - 111 mmol/LFTMC RemisolCO2 [Moles/Vol]26 mmol/FIvhnok90 - 31 mmol/L [facility] RemisolCreatinine [Mass/Vol]0.9 mg/dLNormal0.5 - 1.3 mg/dLFT Remisol GFR/1.73 sq M.predicted among blacks MDRD (S/P/Bld) [Vol rate/Area]mL/min/1.73 v8Tgrtna>=59mL/min/1.73 m2FT Chem SGFR/1.73 sq M.predicted among non-blacks MDRD (S/P/Bld) [Vol rate/Area]mL/min/1.73 u1Tcqyvd>=59mL/min/1.73 m2[facility] [place] [place] Chem S Glucose [Mass/Vol]105 mg/eRFtwhzm93 - 199 mg/dLFTMC RemisolPotassium [Moles/Vol] 3.8 mmol/LNormal3.5 - 5.3 mmol/LFTMC RemisolSodium [Moles/Vol]137 mmol/LNormal 135 - 145 mmol/LFTMC RemisolUrea nitrogen [Mass/Vol]17 mg/dLNormal5 - 21 mg/dL [facility] RemisolUrea nitrogen/Creatinine [Mass ratio]19 mg/kdYuayfj57 - 20FT[facility] RemisolCOAGULATIONOrdered By: Courtney Case on 85-74-2060tJAI Coag (PPP) [Time]31.5 lUjpdrt98.1 - 36.5 second(s)[facility] Auto CoagINR Coag (PPP) [Relative time]1.0 {INR}Invalid Interpretation CodeFTMC Auto CoagPT Coag (PPP) [Time]11.7 sNormal 9.4 - 12.5 second(s)[facility] Auto CoagHEMATOLOGYOrdered By: SYSTEM SYSTEM on 78-87-7547Hydnmzxlj/100 WBC (Bld)1.2 %Normal0.0 - 2.0 %[facility] HemeAutoSS Basophils/Leukocytes Auto (Bld) [Pure # fraction]0.1 E9/LNormal0.0 - 0.2 E9/L [facility] HemeAutoSSEosinophils/100 WBC (Bld)4.1 %Normal0.0 - 8.0 %[facility] HemeAutoSS Eosinophils/Leukocytes Auto (Bld) [Pure # fraction]0.2 E9/LNormal0.0 - 0.5 E9/L [facility] HemeAutoSSLymphocytes/100 WBC (Bld)40.5 %Ouowgy49.0 - 50.0 %[facility] HemeAutoSS Lymphocytes/Leukocytes Auto (Bld) [Pure # fraction]2.3 E9/LNormal1.0 - 4.0 E9/L [facility] HemeAutoSSMonocytes/100 WBC (Bld)7.6 %Normal4.0 - 14.0 %[facility] HemeAutoSS Monocytes/Leukocytes Auto (Bld) [Pure # fraction]0.4 E9/LNormal0.2 - 1.0 E9/L [facility] HemeAutoSSNeutrophils/100 WBC (Bld)46.6 %Losaey80.0 - 75.0 %[facility] HemeAutoSS Neutrophils/Leukocytes Auto (Bld) [Pure # fraction]2.6 E9/LNormal2.0 - 7.5 E9/L [facility] HemeAutoSSHEMATOLOGYOrdered By: Courtney Case on 67-69-9046Reciewlrnxv distribution width (RBC) [Ratio]14.1 %Xetoem70.9 - 14.2 %[facility] HemeAutoSS Hematocrit (Bld) [Volume fraction]31.5 %Low34.0 - 46.0 %[facility] HemeAutoSS Hemoglobin (Bld) [Mass/Vol]10.0 g/dLLow12.0 - 16.0 gm/dLFTMC HemeAutoSSMCH (RBC) [Entitic mass]25.3 pgLow27.0 - 34.0 pgFTMC HemeAutoSSMCHC (RBC) [Mass/Vol]31.8 g/hZXpmkqx89.4 - 36.0 gm/dLFTMC HemeAutoSSMCV (RBC) [Entitic vol]79.6 fLLow80.0 - 100.0 fLFTMC HemeAutoSSPlatelet mean volume (Bld) [Entitic vol]7.7 fLNormal6.4 - 10.8 fLFTMC HemeAutoSSPlatelets (Bld) [#/Vol]264.0 E9/ALdjrol451.0 - 500.0 E9/[facility] HemeAutoSSRBC (Bld) [#/Vol]4.0 E12/LLow4.3 - 5.9 E12/[facility] HemeAutoSS WBC corrected for nucl RBC Auto (Bld) [#/Vol]5.7 E9/LNormal4.0 - 11.0 E9/[facility] HemeAutoSSURINALYSISOrdered By: Courtney Case on 18-40-4575Gkrnpubl LM Ql (Urine sed)Trace /HPFNormalTrace/HPFFTMC UA Auto SSBilirubin Ql (U)Negative (12/30/22 8:53 AM)NormalNegativeBA[facility] [place] [place] UA Auto SSClarity (U)Clear (12/30/22 8:53 AM)NormalClearFOKLAHOMA [facility] [place] UA Auto SSColor (U)Yellow (12/30/22 8:53 AM)NormalYellowFT UA Auto SSEpithelial cells.squamous LM.HPF (Urine sed) [#/Area]0-2 /HPFNormal0-2/HPFFTMC UA Auto SSGlucose Test strip (U) [Mass/Vol]Negative (12/30/22 8:53 AM)NormalNegativeBA[facility] [place] UA Auto SSHemoglobin Ql (U)2+ *ABN* (12/30/22 8:53 AM)Invalid Interpretation CodeNegativeFT UA Auto SSKetones (U) [Mass/Vol]Negative (12/30/22 8:53 AM)NormalNegativeBA[facility] [place] UA Auto SSLithium.plasma/Estancia.RBC (Bld) [Mass ratio]4-20 /HPFNormal0-3/HPFFTMC UA Auto SSNitrite Ql (U)Negative (12/30/22 8:53 AM)NormalNegativeFT UA Auto SSpH (U)6.0 *NA* (12/30/22 8:53 AM)Invalid Interpretation Code5.0 - 9.0FT UA Auto SSProtein (U) [Mass/Vol]Negative (12/30/22 8:53 AM)NormalNegativeBA[facility] [place] UA Auto SSSpecific gravity (U) [Rel density] 1.025 *NA* (12/30/22 8:53 AM)Invalid Interpretation Code1.005 - 1.030FT UA Auto SSUA Spec DescClean Catch (12/30/22 8:53 AM)NormalBAILEY [facility] [place] UA Auto SSUrobilinogen Qn (U)0.1980611 {Aspen'U}/dL Normal0.0 - 1.0 EU/dLBAILEY MEDICAL CENTER – [place], [place] UA Auto SSWBC Auto Ql (U)Negative (12/30/22 8:53 AM)NormalNegativeBA[facility] [place] UA Auto SSWBC LM.HPF (Urine sed) [#/Area]0-5 /HPFNormal0-5/HPFBAILEY MEDICAL CENTER – [place] UA Auto SSOffice Visiton 24-94-0157Mekylj-up [id number] Driss Cope 1995 F Date Provider Department Center 12/05/2022 [id number], GINA [facility] WOM None Chart Close Cosign Required by: Opal Ross MD[MONGD] No family history on file Level of Service:72670 RI OFFICE/OUTPATIENT ESTABLISHED LOW MDM 20-29 MIN (GE,GC) Reason for Visit and Comments: Blood Pressure Check [299][facility] SHSProgress Noteon 90-95-1552Itneggak Note Attestation signed by Opal Ross MD at 12/05/2022 3:19 PM [facility]: This patient was seen in the [facility] by the resident. I [...] about 4 weeks (around 01/02/2023) for Visit .[facility] SHSProgress NoteVital signs BP 127/87 Weight 149.2lb Pulse 106 Temp 96.7NoSan[facility] SHSProgress Noteon 84-56-1118Ihnvhxcl Note Late entry due to patient care. Resident Diallo notified of B.P 138/96 heart rate 119 around 1236 see flowsheet. Also notified checked in 1 hour via orders and B.P 143/87 pulse 111. Clarified if should check in 1 hour according to orders. . Also notified patient has discharge order in. Resident Diallo states No on rechecking. Ok to discharge. Will make patient aware.[facility] SHSProgress NotePOSTPARTUM VAGINAL DELIVERY POST DAY # 2 Driss [...] Name: DO Vanessa Zambrano DO 12/02/2022, 5:09 [facility]42on 45-73-97078377.5mm flanges given to patient. Encouraged her to call for observation of pump session and smaller flanges. Martha in NICU to assist with personal pump.Normal [facility] HospitalCARECOORDon 62-66-3452DZCGSHQQJ28 year old admitted for induction of labor [...] to home. Denies any concerns at this time.[facility] SHSProgress Noteon 71-12-4705Cawlijfr Note NOTE - VAGINAL DELIVERY POST DAY [...] she so chooses. Provider's Name: Ritu RyderDO OLSENNA YOEL, 12/01/2022, 5:32 AM Attestation Statement I saw [...] with more than 50% of the total nwdg-iy-uywl time of the visit in counseling/coordination of care. , 9:22 [facility] OWK36cq 37-79-130221Hpqes given to patient and educated how to use and to bring to infant [facility] LMQ40Hjokxt pump use indicated for this pt. 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 Bowden; Dr. Kramer Infant Information: Information for the patient's : Francie Cope [[id number]] Information for the patient's : Francie Cope [[id number]] Description: normal Meconium Noted: No Anesthesia: epidural anesthesia Complications: None Application and Delivery: Driss Cantley at 35w1d admitted for IOL-PreEwSF. Her labor [...] No results found for: RUBELLAIGG Irina Kramer, DO 11/30/2022, 4:04 AMNSanford [facility] SHSProgress Noteon 66-19-3727Efflothv NoteFoley catheter inserted by Andi Bacon RN, catheter drained and emptied for 900cc. Catheter secured to leg.[facility] SHSProgress NotePatient up to bathroom but remains [...] benadryl to help with swelling. Unity Medical CenterProgress NoteNutrition rescreen completed. Chart reviewed. Patient to be monitored and followed by the diet field map technician. Suad Samuels, CRISSClifton-Fine Hospital SHSProgress NotePatient unable to void, last straight cathed at 0400. Bladder scan obtained for >928 ml, fundus +2 and shifted to right. Patient straight cathed on attempt x2 by Andi Bacon RN for 950cc. Will continue to monitor.[facility] SHSCAREPLNon 86-93-5774RUCRWBVIpb patient will continue to make cervical change. Clotilde Mg, RNClifton-Fine Hospital SHSLaboratory - Hematology and Cell countsOrdered By: Lucrecia Cervantes on 80-22-1213Sjumatvwp (Bld) [#/Vol]386 10*3/uL140 - 440 10*3/uLSumma HealthPlatelets (Bld) [#/Vol]Ordered By: Lucrecia Cervantes on 17-43-0083Slqppdtjvptmdr and review of laboratory resultsNormal [facility]. agalactiae DNA TENA+probe Ql (Unsp spec)on 11-29-2022 Group B Strep ScreenNot detectedNot DetectedMiddletown Hospital HealthInterpretation and review of laboratory resultsNormBrown Memorial HospitalMethodology: real-time PCRSumMemorial Health System [facility] HealthABO and Rh group Confirm Nom (Bld)on [id number] group Nom (Bld)OSma HealthD Ag Ql (RBC)PositiveSUC Medical Center HealthBlood type and Crossmatch panel (Bld)on 11-16-9056GVP group Nom (Bld)OSohiohealth [facility]ist [facility] HealthBlood group antibody screen GEL QlNegativeSOhioHealth Grant Medical CenterD Ag Ql (RBC)PositiveSUC Medical Center HealthCBC panel Auto (Bld)Ordered By: Lauren Ayers on 31-62-7687Uqiciqodzac distribution width (RBC) [Ratio]13.3 %11.5 - 14.5 %[facility] HealthHematocrit (Bld) [Volume fraction]33.8 %Low35.0 - 47.0 %[facility] HealthHemoglobin (Bld) [Mass/Vol] 11.2 g/dLLow11.7 - 16.0 g/dLSohiohealth pickerington [facility]ist hospital HealthInterpretation and review of laboratory resultsAbnormalSPeoples HospitalH (RBC) [Entitic mass]28.0 pg26.0 - 34.0 pgSPeoples HospitalHC (RBC) [Mass/Vol]33.1 %32.0 - 36.0 %[facility]iverside Methodist HospitalV (RBC) [Entitic vol]84.4 fL80.0 - 98.0 fLMiddletown Hospital HealthPlatelet mean volume (Bld) [Entitic vol]8.3 fL7.4 - 12.4 fLmma HealthPlatelets (Bld) [#/Vol]319 10*3/uL140 - 440 10*3/uL Summa HealthRBC (Bld) [#/Vol]4.00 10*6/uL3.8 - 5.20 10*6/uLmma HealthWBC (Bld) [#/Vol]18.9 10*3/uLHigh3.6 - 10.7 10*3/uLSumma HealthSumma HealthComprehensive metabolic 1998 panelon 98-02-2104Mwzgpqb [Mass/Vol]3.9 g/dL3.5 - 5.0 g/dLSumma HealthALP [Catalytic activity/Vol]201 U/LHigh38 - 126 U/LSumma [...] HealthGFR/1.73 sq M.predicted MDRD (S/P/Bld) [Vol rate/Area]- [facility] HealthComment on above: Calculation based on the Chronic Kidney Disease Epidemiology Collaboration (CKD- EPI) equation refitwithout adjustment for raceGlucose [Mass/Vol]158 mg/iWEiyl94 - 100 mg/dLSumma HealthInterpretation and review of laboratory resultsAbnormal Summa HealthPotassium [Moles/Vol]4.1 mmol/L3.5 - 5.1 mmol/LSumma HealthProtein [Mass/Vol]7.5 g/dL6.3 - 8.2 g/dLSumma HealthSodium [Moles/Vol]133 mmol/MTuo420 - 145 mmol/LSumma HealthUrea nitrogen [Mass/Vol]5 mg/dLLow7 - 17 mg/dLSumma HealthSumma HealthLaboratory - Hematology and Cell countsOrdered By: Shruthi Fontana on 51-41-4802Ioxmlrhgc (Bld) [#/Vol]335 10*3/uL140 - 440 10*3/uLSuuniversity hospitals health system HealthPlatelets (Bld) [#/Vol]Ordered By: Shruthi Fontana on 11-28-2022 Interpretation and review of laboratory resultsNoLakes Regional Healthcare CHEMISTRYOrdered By: VMLogix SYSTEM on 39-34-8288Cakj T4 index Calc [Mass/Vol] 5.98 ng/dLNormal5.90 - [...] Code0.1 - 0.9 mg/dL [facility] RemisolChloride [Moles/Vol]102 mmol/NUzllco242 - 111 mmol/LFTMC RemisolCO2 [Moles/Vol]18 mmol/LLow21 - 31 mmol/LFTMC RemisolCreatinine [Mass/Vol]0.6 mg/dL Normal0.5 - 1.3 mg/dLFTMC RemisolGFR/1.73 sq M.predicted among blacks MDRD (S/P/Bld) [Vol rate/Area]mL/min/1.73 f1Wcudwd>=59mL/min/1.73 m2FT Chem S GFR/1.73 sq M.predicted among non-blacks MDRD (S/P/Bld) [Vol rate/Area] mL/min/1.73 e1Vrians>=59mL/min/1.73 m2FT Chem SGlobulin (S) [Mass/Vol]4.0 g/dL Normal1.4 - 4.0 gm/dLFT RemisolPotassium [Moles/Vol]3.7 mmol/LNormal3.5 - 5.3 mmol/LFTMC RemisolProtein [Mass/Vol]7.1 g/dLNormal6.0 - 7.8 gm/dLFT Remisol Sodium [Moles/Vol]132 mmol/PChh058 - 145 mmol/LFTMC RemisolUrate [Mass/Vol]4.9 mg/dLNormal2.2 - 7.4 mg/dLFTMC RemisolUrea nitrogen [Mass/Vol]7 mg/dLNormal5 - 21 mg/dLFTMC RemisolCOAGULATIONOrdered By: Amairani Jenkins on 53-46-2759aZFC Coag (PPP) [Time]25.3 oHmvnuw95.1 - 36.5 second(s)[facility] [place] [place] Auto Coag Fibrin+Fibrinogen fragments (S) [Mass/Vol]>10 and <40 *ABN* (11/27/22 3:14 PM)Invalid Interpretation Code<10FT Man SeroFibrinogen Coag (PPP) [Mass/Vol]539 mg/iDSaxb531 - 393 mg/dLFT Auto CoagINR Coag (PPP) [Relative time]0.9 {INR}Invalid Interpretation CodeFT Auto CoagPT Coag (PPP) [Time]10.1 sNormal9.4 - 12.5 second(s)[facility] [place] [place] Auto CoagHEMATOLOGYOrdered By: Raquel Arteaga on 33-45-2992Xeleqordfhb distribution width (RBC) [Ratio]12.9 %Rmcaji04.9 - 14.2 % [facility] HemeAutoSSHematocrit (Bld) [Volume fraction]34.2 %Sgiafm30.0 - 46.0 %[facility] HemeAutoSSHemoglobin (Bld) [Mass/Vol]11.0 g/dLLow12.0 - 16.0 gm/dLFTMC HemeAutoSSMCH (RBC) [Entitic mass]27.3 caGqlpyo21.0 - 34.0 pgFTMC HemeAutoSSMCHC (RBC) [Mass/Vol]32.3 g/oSVtlivu23.4 - 36.0 gm/dLFTMC HemeAutoSSMCV (RBC) [Entitic vol]84.6 yVXmhyqh05.0 - 100.0 fLFTMC HemeAutoSSPlatelet mean volume (Bld) [Entitic vol]8.2 fLNormal6.4 - 10.8 fLFTMC HemeAutoSSPlatelets (Bld) [#/Vol]273.0 E9/MQcdzsb554.0 - 500.0 E9/LFTMC HemeAutoSSRBC (Bld) [#/Vol]4.0 E12/LLow4.3 - 5.9 E12/LFTMC HemeAutoSSWBC corrected for nucl RBC Auto (Bld) [#/Vol]15.7 E9/LHigh4.0 - 11.0 E9/LFTMC HemeAutoSSComment on above:Result Comment: Slide reviewed by ts Unable to obtain accurate platelet count due to platelet clumping. Platelet count estimate appears normal on slide..URINALYSISOrdered By: Amairani Jenkins on 39-42-0340Uinmtaajz Ql (U)Negative (11/27/22 1:55 PM)NormalNegativeFT UA Auto SSClarity (U)Clear (11/27/22 1:55 PM)NormalClearFTMC UA Auto SSColor (U)Yellow (11/27/22 1:55 PM)NormalYellowFTMC UA Auto SSEpithelial cells.squamous LM.HPF (Urine sed) [#/Area]3-4 /HPFNormal0-2/HPFFTMC UA Auto SSGlucose Test strip (U) [Mass/Vol]Negative (11/27/22 1:55 PM)NormalNegativeBA[facility] [place] UA Auto SSHemoglobin Ql (U)1+ *ABN* (11/27/22 1:55 PM)Invalid Interpretation CodeNegativeFT UA Auto SSKetones (U) [Mass/Vol]Negative (11/27/22 1:55 PM)NormalNegativeBA[facility] [place] UA Auto SSLithium.plasma/Estancia.RBC (Bld) [Mass ratio]4-20 /HPFNormal0-3/HPFFTMC UA Auto SSNitrite Ql (U)Negative (11/27/22 1:55 PM)NormalNegativeBA[facility] [place] UA Auto SSpH (U)6.5 *NA* (11/27/22 1:55 PM)Invalid Interpretation Code5.0 - 9.0[facility] [place] [place] UA Auto SSProtein (U) [Mass/Vol]Negative (11/27/22 1:55 PM)NormalNegativeBA[facility] [place] UA Auto SSSpecific gravity (U) [Rel density] 1.010 *NA* (11/27/22 1:55 PM)Invalid Interpretation Code1.005 - 1.030[facility] [place] [place] UA Auto SSUA Spec DescClean Catch (11/27/22 1:55 PM)NormalBAILEY MEDICAL [facility]ENTER – [place] UA Auto SSUrobilinogen Qn (U)0.3874657 {Aspen'U}/dL Normal0.0 - 1.0 EU/dLBAILEY MEDICAL CENTER – [place] UA Auto SSWBC Auto Ql (U)Negative (11/27/22 1:55 PM)NormalNegativeBA[facility] [place] [place] UA Auto SSWBC LM.HPF (Urine sed) [#/Area]0-5 /HPFNormal0-5/HPFFTMC UA Auto SSCHEMISTRYOrdered By: SYSTEM SYSTEM on 07-14-2022 Albumin [Mass/Vol]3.6 g/dLNormal3.3 - 5.0 gm/dLMC RemisolAlbumin/Globulin [Mass ratio]1.1 {ratio}Normal1.1 - 2.2FTMC RemisolALP [Catalytic activity/Vol]41 [iU]/yKemjxt64 - 98 Int._Unit/LFTMC RemisolALT No additional P-5'-P [Catalytic activity/Vol]19 [iU]/dNormal6 - 46 Int._Unit/LFTMC RemisolAnion gap [Moles/Vol] 11 mmol/LNormal6 - 16 mEq/LFTMC RemisolAST [Catalytic activity/Vol]21 [iU]/d Normal5 - 43 Int._Unit/LFTMC RemisolBilirubin [Mass/Vol]0.7 mg/dLNormal0.0 - 1.1 mg/dLFTMC RemisolBilirubin.direct [Mass/Vol]0.1 mg/dLNormal0.1 - 0.4 mg/dLFTMC RemisolBilirubin.indirect [Mass or moles/Vol]0.6 mg/dLNormal0.1 - 0.9 mg/dLFTMC RemisolCalcium [Mass/Vol]8.9 mg/dLNormal8.9 - 11.1 mg/dLFTMC RemisolChloride [Moles/Vol]107 mmol/JGwbolv779 - 111 mmol/LFTMC RemisolCO2 [Moles/Vol]22 mmol/L Rypbwt30 - 31 mmol/LFTMC RemisolCreatinine [Mass/Vol]0.6 mg/dLNormal0.5 - 1.3 mg/dLFTMC RemisolGFR/1.73 sq M.predicted among blacks MDRD (S/P/Bld) [Vol rate/Area]mL/min/1.73 w6Ilzxiz>=59mL/min/1.73 m2FTMC Chem SGFR/1.73 sq M.predicted among non-blacks MDRD (S/P/Bld) [Vol rate/Area]mL/min/1.73 n6Pmuovn >=59mL/min/1.73 m2FT[facility] Chem SGlobulin (S) [Mass/Vol]3.3 g/dLNormal1.4 - 4.0 gm/dLFTMC RemisolGlucose [Mass/Vol]99 mg/aTYbxoxd85 - 199 mg/dLFTMC Remisol Potassium [Moles/Vol]3.5 mmol/LNormal3.5 - 5.3 mmol/LFTMC RemisolProtein [Mass/Vol]6.9 g/dLNormal6.0 - 7.8 gm/dLFTMC RemisolSodium [Moles/Vol]136 mmol/L Otbskp901 - 145 mmol/LFTMC RemisolUrea nitrogen [Mass/Vol]8 mg/dLNormal5 - 21 mg/dLFTMC RemisolUrea nitrogen/Creatinine [Mass ratio]13 mg/hmDwlpsr50 - 20FTMC RemisolHEMATOLOGYOrdered By: SYSTEM SYSTEM on 97-10-4439Hkanjbwen/100 WBC (Bld) 0.3 %Normal0.0 - 2.0 %[facility] [...] 7.5 E9/LFTMC HemeAutoSSHEMATOLOGYOrdered By: Teena Quiroz on 00-30-3158Atnztfegfru distribution width (RBC) [Ratio]12.9 %Normal 10.9 - 14.2 %[facility] HemeAutoSSHematocrit (Bld) [Volume fraction]33.6 %Low34.0 - 46.0 %[facility] HemeAutoSSHemoglobin (Bld) [Mass/Vol]11.5 g/dLLow12.0 - 16.0 gm/dL [facility] [place] [place] HemeAutoSSMCH (RBC) [Entitic mass]28.5 dzBehdiy19.0 - 34.0 pgFOKLAHOMA HEARTH [facility]OS[facility] [place] HemeAutoSSMCHC (RBC) [Mass/Vol]34.1 g/rSXjoeuv74.4 - 36.0 gm/dLFT HemeAutoSS MCV (RBC) [Entitic vol]83.5 aYYftmlf27.0 - 100.0 fLBAILEY [facility]ICAL [facility]ENTER – [place] HemeAutoSSPlatelet mean volume (Bld) [Entitic vol]8.1 fLNormal6.4 - 10.8 fLBAILEY MEDICAL CENTER – [place] HemeAutoSSPlatelets (Bld) [#/Vol]271.0 E9/FQturtm669.0 - 500.0 E9/LFOKLAHOMA HEARTH [facility] [place] HemeAutoSSRBC (Bld) [#/Vol] 4.0 E12/LLow4.3 - 5.9 E12/[facility] HemeAutoSSWBC corrected for nucl RBC Auto (Bld) [#/Vol]13.9 E9/LHigh4.0 - 11.0 E9/[facility] HemeAutoSSURINALYSISOrdered By: Deirdre Gilliam on 25-92-4593Qqawlipa LM Ql (Urine sed)Trace /HPFNormalTrace/HPFBAILEY [facility] [place] UA Auto SSBilirubin Ql (U)Negative (07/14/22 5:00 AM)NormalNegativeBA[facility]LEY [facility] [place] UA Auto SSClarity (U)Clear (07/14/22 5:00 AM)NormalClearFOKLAHOMA [facility] [place] UA Auto SSColor (U)Yellow (07/14/22 5:00 AM)NormalYellowBAILEY MEDICAL CENTER – [place] UA Auto SSEpithelial cells.squamous LM.HPF (Urine sed) [#/Area]3-4 /HPFNormal0-2/HPFBAILEY MEDICAL [facility]ENTER – [place] UA Auto SSGlucose Test strip (U) [Mass/Vol]Negative (07/14/22 5:00 AM)NormalNegativeBA[facility] [place] UA Auto SSHemoglobin Ql (U)Trace *ABN* (07/14/22 5:00 AM)Invalid Interpretation CodeNegativeBAILEY MEDICAL CENTER [facility] [place] UA Auto SSKetones (U) [Mass/Vol]Negative (07/14/22 5:00 AM)NormalNegativeBA[facility] [place] UA Auto SSLithium.plasma/Estancia.RBC (Bld) [Mass ratio]0-3 /HPFNormal0-3/HPFMC UA Auto SSMucus Ql (Urine sed)Trace (07/14/22 5:00 AM)NormalBAILEY [facility]ENTER [facility] [place] UA Auto SSNitrite Ql (U)Negative (07/14/22 5:00 AM)NormalNegativeBA[facility] [place] UA Auto SSpH (U)6.0 *NA* (07/14/22 5:00 AM)Invalid Interpretation Code5.0 - 9.0[facility] [place] [place] UA Auto SSProtein (U) [Mass/Vol]Negative (07/14/22 5:00 AM)NormalNegativeBA[facility]LEY [facility] [place] UA Auto SSSpecific gravity (U) [Rel density] 1.020 *NA* (07/14/22 5:00 AM)Invalid Interpretation Code1.005 - 1.030[facility] [place] [place] UA Auto SSUA Spec DescClean Catch (07/14/22 5:00 AM)NormalBAILEY [facility]ENTER [facility] [place] UA Auto SSUrobilinogen Qn (U)0.3125717 {Aspen'U}/dLNormal0.0 - 1.0 EU/dLBAILEY MEDICAL CENTER – [place] UA Auto SSWBC Auto Ql (U)Negative (07/14/22 5:00 AM)NormalNegativeBA[facility]LEY [facility] [place] Auto SSWBC LM.HPF (Urine sed) [#/Area]0-5 /HPFNormal0-5/HPFMC UA Auto SSCHEMISTRYOrdered By: SYSTEM SYSTEM on 20-80-5518Bwwtmnv [Mass/Vol]4.4 g/dLNormal3.3 - 5.0 gm/dLFT Remisol Albumin/Globulin [Mass ratio]1.1 {ratio}Normal1.1 - 2.2FTMC RemisolALP [Catalytic activity/Vol]64 [iU]/rJwxpke72 - 98 Int._Unit/LFTMC RemisolALT No additional P-5'-P [Catalytic activity/Vol]107 [iU]/dHigh6 - 46 Int._Unit/LFTMC RemisolAST [Catalytic activity/Vol]63 [iU]/dHigh5 - 43 Int._Unit/LFTMC Remisol Bilirubin [Mass/Vol]1.5 mg/dLHigh0.0 - 1.1 mg/dLFTMC RemisolBilirubin.direct [Mass/Vol]0.2 mg/dLNormal0.1 - 0.4 mg/dLFTMC RemisolBilirubin.indirect [Mass or moles/Vol]1.3 mg/dLHigh0.1 - 0.9 mg/dLFTMC RemisolCholesterol [Mass/Vol]193 mg/xFEpdylb688 - 200 mg/dLFTMC RemisolCholesterol in HDL [Mass/Vol]64 mg/dL Invalid Interpretation CodeFTMC RemisolCholesterol in LDL [Mass/Vol]116 mg/dL Normal<=129mg/dLFTMC RemisolCholesterol in VLDL [Mass/Vol]13 mg/dLNormal7 - 40 mg/dLFT[facility] RemisolGlobulin (S) [Mass/Vol]3.9 g/dLNormal1.4 - 4.0 gm/dL[facility] RemisolProtein [Mass/Vol]8.3 g/dLHigh6.0 - 7.8 gm/dLFT[facility] RemisolTriglyceride [Mass/Vol]67 mg/dLNormal<=149mg/dLFT[facility] RemisolCOAGULATIONOrdered By: Courtney Case on [id number] Coag (PPP) [Relative time]1.0 {INR}Invalid Interpretation Code [facility] Auto CoagPT Coag (PPP) [Time]12.4 bFaskuj93.2 - 12.9 second(s)[facility] Auto CoagHEMATOLOGYOrdered By: SYSTEM SYSTEM on 51-35-3223Bgfcjqpjb/100 WBC (Bld)0.7 %Normal0.0 - 2.0 %[facility] HemeAutoSSBasophils/Leukocytes Auto (Bld) [Pure # fraction]0.0 E9/LNormal0.0 - 0.2 E9/LFTMC HemeAutoSSEosinophils/100 WBC (Bld)3.2 %Normal0.0 - 8.0 %[facility] HemeAutoSSEosinophils/Leukocytes Auto (Bld) [Pure # fraction]0.2 E9/LNormal0.0 - 0.5 E9/LFTMC HemeAutoSSLymphocytes/100 WBC (Bld) 31.9 %Gvydwc69.0 - 50.0 %[facility] HemeAutoSSLymphocytes/Leukocytes Auto (Bld) [Pure # fraction]1.9 E9/LNormal1.0 - 4.0 E9/LFT[facility] HemeAutoSSMonocytes/100 WBC (Bld)9.1 %Normal4.0 - 14.0 %[facility] HemeAutoSSMonocytes/Leukocytes Auto (Bld) [Pure # fraction]0.5 E9/LNormal0.2 - 1.0 E9/LFT[facility] HemeAutoSSNeutrophils/100 WBC (Bld) 55.1 %Wkwheh27.0 - 75.0 %[facility] HemeAutoSSNeutrophils/Leukocytes Auto (Bld) [Pure # fraction]3.3 E9/LNormal2.0 - 7.5 E9/LFT[facility] HemeAutoSSHEMATOLOGYOrdered By: Kayleigh Ward on 12-75-3309Rxisqtzsczr distribution width (RBC) [Ratio]12.9 % Ksksnw12.9 - 14.2 %[facility] HemeAutoSSHematocrit (Bld) [Volume fraction]40.1 %Normal 34.0 - 46.0 %[facility] HemeAutoSSHemoglobin (Bld) [Mass/Vol]13.2 g/fDMyabvd43.0 - 16.0 gm/dLFTMC HemeAutoSSMCH (RBC) [Entitic mass]27.7 fxFxygio62.0 - 34.0 pgFTMC HemeAutoSSMCHC (RBC) [Mass/Vol]32.8 g/mONgbikw09.4 - 36.0 gm/dLFTMC HemeAutoSS MCV (RBC) [Entitic vol]84.3 uQBofttz68.0 - 100.0 fLFTMC HemeAutoSSPlatelet mean volume (Bld) [Entitic vol]8.5 fLNormal6.4 - 10.8 fLFT[facility] HemeAutoSSPlatelets (Bld) [#/Vol]299.0 E9/TXliasu488.0 - 500.0 E9/LFT[facility] HemeAutoSSRBC (Bld) [#/Vol] 4.8 E12/LNormal4.3 - 5.9 E12/LFT[facility] HemeAutoSSWBC corrected for nucl RBC Auto (Bld) [#/Vol]5.9 E9/LNormal4.0 - 11.0 E9/LFT[facility] HemeAutoSSLMPon [id number] risk assessmenta) No falls within the last rlmbKI-EKKQA-Pojgzg 320 Work Phone: Last menstrual period start muoqojtbofJJ-BTHAZ-Fmdibs 320 Work Phone: Tobacco use status CPHSb) JgRZ-OZAIC-Wrvkbs 320 Work Phone: OB/SALES SERVICE REPRESENTATIVE - Office Visiton [id number]/SALES SERVICE REPRESENTATIVE - Office VisitDiagnoses/Problems Assessed Endometriosis (617.9) (N80.9) Orders Start: Orilissa 200 MG Oral Tablet; take 1 tablet by mouth twice a day Provider Impressions 26 yo 1. endometriosis: discussed options continue norethindrone rx'd orilissa 200 mg bid rtc in 3 months Chief Complaint patient here to discuss pain related to endometriosis, declined conventions assistant. 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 History of Present Zthiixt2 yo presents as a follow up for [...] again engaged x 1 year working at [employer] in [place] Review of Systems Constitutional: no fever, no [...] hours Vitals Vital Signs Recorded: 09Feb2022 11:41AM Gncvphpi490 Hdjhdolxf26 Height5 ft 2 in Epogwy779 lb BMI Vqaopyuozc56.51 kg/m2 BSA Calculated1.61 Tobacco Useb) No Fall [...] NormalUH TouchworksXR KNEE LEFT (MIN 4 VIEWS)on 07-35-7211NZ KNEE LEFT (MIN 4 VIEWS)EXAM: XR KNEE [...] Signed by: Tashi Lopez MD 09/29/21 Final resultNormalMercy Panola Medical CenterOB/SALES SERVICE REPRESENTATIVE - Office Visiton 24-68-5666TA/SALES SERVICE REPRESENTATIVE - Office VisitDiagnoses/Problems Assessed Anxiety (300.00) (F41.9) Orders Start: FLUoxetine HCl - 20 MG Oral Capsule; TAKE 1 CAPSULE Daily Provider Impressions 26 yo 1. endometriosis - discussed treatment options rx'd Prozac for mood rx'd norethindrone rtc in 3 months Chief Complaint patient to follow up on medication from last visit in march 2021, declined conventions assistant. 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 History of Present Owiawmr6 yo with endometriosis was on norethindrone d/c'd [...] Every 6 hours Vitals Vital Signs Recorded: 90Zfu1619 01:19PM Ntizkiqz813 Mcqovhlvo22 Height5 ft 2 in Vjhmgk060 lb BMI Sgzyscnkot27.58 kg/m2 BSA Calculated1.53 Tobacco Useb) No Fall Screeninga) No falls within the last year QBA82Wdc7255 Pain Scale0 Signatures Electronically signed by : Charlene Rodriguez DO; Jun 03 2021 10:55AM EST (Author) NormalUH TouchworksChlamydia sp identified Org specific cx Nom (Genital specimen)Ordered By: Jackelyn Dela Cruz on 02-92-0017Uolcvnmw Chlamydia Screen NegativeNegativeSumma HealthHBV surface Ag IA Qlon 03-54-5307Owxzhvnr Hepatitis B Surface AgNegativeNegative, None DetectedSumma HealthHIV 1+2 Ab and HIV1 p24 Ag IA.rapid Nom (S/P/Bld)on 39-13-3415ZZK-1/HIV-2 AbNegativeSOhioHealth Grant Medical CenterNo Panel Informationon 73-45-4025Smfieqfm Gonorrhea ScreenNegativeNegativeSOhioHealth Grant Medical Center External Rubella IGG QuantitationPositiveMitchell County Regional Health Center Panel InformationOrdered By: Jackelyn Dela Cruz on 55-27-1688Yijih HealthReagin Ab RPR Ql (S)on 14-25-4488Rzqglhym RPRNon-ReactiveBorderline, Nonreactive, Weakly Reactive, Equivocalmma HealthOB/SALES SERVICE REPRESENTATIVE - Office Visiton 34-44-1206NE/SALES SERVICE REPRESENTATIVE - Office VisitDiagnoses/Problems Assessed Endometriosis (617.9) (N80.9) [...] for endometriosis PAP per patient 2019 WNL Public Health Technician declined -CATY,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 LMP 04/11/21 History of Present Abkjzyg28 yo with endometriosis bleeding once per month, [...] Apr 20 2021 11:04AM EST (Author) Normal TouchworksTobacco Screening.on 41-27-3381Tskm risk assessmenta) No falls within the last mdjbHA-KVWWN-Rjzrra 320 Work Phone: Last menstrual period start ytwx11Fmb9387 OS-LOVEU-Yeatqk 320 Work Phone: Tobacco Screening.b) TwLF-AEELK-Arawba 320 Work Phone: Radiologyon 37-26-0602RZ Kidney - bilateralNormal XI-Mlcnktt-Cyexwyjvn Work Phone: us RENAL BILATon 89-26-8910OO RENAL BILATMRN: [id number] Patient Name: DRISS COPE STUDY: US RENAL BILAT; 04/14/2021 1:14 pm INDICATION: Recurrent UTI. COMPARISON: None. ACCESSION NUMBER(S): [id number] ORDERING CLINICIAN: NICHOLAS CHAU TECHNIQUE: Multiple images [...] renal ultrasound. Electronically signed by: GENEVIEVE BREEN MDWellSpan Good Samaritan Hospital Office Visit (Urology)on 98-41-3672Ugzoxs-up visitDiagnoses/Problems Assessed Recurrent UTI (599.0) (N39.0) Orders Recurrent UTI Start: Nitrofurantoin Monohyd Macro 100 MG Oral Capsule; TAKE 1 CAPSULE Other Please take one capsule after sexual intercourse to prevent UTI Rx By: Nicholas Chau; Dispense: 30 Days ; #:30 Capsule; Refill: 11;For: Recurrent UTI; ROSY = N; Verified Transmission to [facility] Ultrasound Kidney Bilateral; Status:Hold For - Scheduling; Requested for:63Euk0137; Perform:[facility] Services Imaging; Due:11Rem5101; Last Updated By:Isela Terrazas; 04/01/2021 9:16:17 AM;Ordered; [...] UTI; ROSY = N; Verified Transmission to [facility] Provider Impressions 26 year old female with history of endometriosis presents today via telehealth as a new patient forevaluation of recurrent UTIs. She reports getting UTIs at least once per month, noting occasional nocturia. Symptoms include burning, frequency, and back pain. She states that some UTIs are related to sexual intercourse but most are not. Patient reports she saw Dr. Booth at [facility] in [place], noting she was only treated with medications and urethral dilation for a supposed stricture.Denies gross hematuria. Patient is a non-smoker. Urine culture from [facility] on 03/04/21 was positive for E. coli, [...] and in the presence of Dr. Chau. Nicholas Stokes, agreethat all documentation by the scribe, Patricia Ruano, [...] NPV - recurrent UTI History of Present Moxvowh37 year old female with history of endometriosis presents today via telehealth as a new patient for evaluation of recurrent UTIs. She reports getting UTIs at least once per month, noting occasional nocturia. Symptoms include burning, frequency, and back pain. She states that some UTIs are related to sexual intercourse but most are not. Patient reports she saw Dr. Booth at [facility] in [place], noting she was only treated with medications [...] mood and affect. Signature (more content not included)...NormalSentara Albemarle Medical Center GASTRIC EMPTYING SOLIDon 63-09-1910AV GASTRIC EMPTYING SOLID* * *Final Report* * * DATE OF EXAM: Nov 05 2020 12:26PM [facility] 0017 - [place] GASTRIC EMPTYING SOLID / PROCEDURE REASON: Nausea [...] 4 HOURS IS CONSISTENT WITH MILD GASTROPARESIS. Accounts Receivable Executive: DAVID Transcribe Date/Time: Nov 05 2020 1:09P Dictated by : BRUNO PEREA MD This examination was interpreted and the report reviewed and electronically signed by: BRUNO PEREA MD on Nov 05 2020 1:24PM EST [id number] HospitalANES POSTPROC EVALon 77-09-1394HJST POSTPROC EVALHNO ID: [id number] Author: Austin Story Service: ? Author Type: Anesthesiologist Type: Anesthesia Postprocedure Evaluation Filed: 10/25/2020 2:52 PM Note Text: POST ANESTHESIA EVALUATION NOTE : 1995 Procedure Summary Date: 10/25/20 Room / Location: ENDO 01 / ENDO Anesthesia Start: 1324 Anesthesia Stop: 1352 Procedures: COLONOSCOPY (N/A Colon Sigmoid) EGD (N/A Throat) Diagnosis: Gastroesophageal reflux disease without esophagitis Surgeons: David Arango) [facility] Responsible Provider: Austin Story Anesthesia Type: MAC [...] October 25, 2020 TIME: 2:52 PM CSN: [id number] HospitalANES PRE-OPon 47-04-8865FMYL PRE-OPHNO ID: [id number] Author: Austin Story Service: ? Author Type: [...] October 25, 2020 TIME: 1:08 PM CSN: [id number] Alabama Regional Hospital PATHOLOGYon 10-25-2020 SURGICAL PATHOLOGYSpecimen originated from [facility] Specimen #: [id number] Submitting Physician: DAVID CRUZ MD FINAL DIAGNOSIS 1. Small bowel, biopsy (A) - Small bowel mucosa with no pathologic diagnostic abnormality; negative for celiac disease, granulomas and dysplasia. 2. Stomach, biopsy (B) - Gastric oxyntic-type mucosa with no pathologic diagnostic abnormality; see comment. /[facility] 10/26/2020 COMMENT 2. No microorganisms [...] in one cassette. Gross examination performed at [facility], [address] [place] [address] 10/25/2020 7:59:40 PM Date of Report: 10/26/2020 Date of Procedure: 10/25/2020 Date of Receipt: 10/25/2020 Submitted by: DAVID CRUZ MD Location: AVEN Diagnostic interpretation performed at [facility], [address] [place] [address]. [place] Number: [id number] Clinic Reference LabComment on above:Performed By: #### S #### See report for performing lab information.SURGICAL PATHOLOGYSpecimen originated from [facility] Specimen #: [id number] Submitting Physician: DAVID CRUZ MD FINAL DIAGNOSIS 1. Small bowel, biopsy (A) - Small bowel mucosa with no pathologic diagnostic abnormality; negative for celiac disease, granulomas and dysplasia. 2. Stomach, biopsy (B) - Gastric oxyntic-type mucosa with no pathologic diagnostic abnormality; see comment. /[facility] 10/26/2020 COMMENT 2. No microorganisms [...] in one cassette. Gross examination performed at [facility], [address] [place] [address] EJL 10/25/2020 7:59:40 PM Date of Report: 10/26/2020 Date of Procedure: 10/25/2020 Date of Receipt: 10/25/2020 Submitted by: DAVID CRUZ MD Location: [facility] Diagnostic interpretation performed at [facility], [address] [place] [address]. CLIA Number: [id number] HospitalABO/RH GROUP TESTon 47-53-7390OCA TYPEONoCape Fear/Harnett HealthComment on above: Performed By: #### VERAB #### [facility] [address] [id number] TYPEPositiveSaint Francis Medical CenterComment on above: Performed By: #### VERAB #### [facility] [address] [id number] Surgical Pathology Departmenton 81-32-3516Hptef Surgical Pathology DepartmentName DRISS COPE Pathologist: ASHLEY HURTADO MD Date of Procedure: 09/01/2020 Date Received: 09/01/2020 Date Reported 09/03/2020 Submitting Physician: CHARLENE RODRIGUEZ D.O. Location: [facility] External # FINAL DIAGNOSIS A. LEFT [...] D. Right pelvic sidewall peritoneum are 2 axos-xps-giv, irregular fragments of tissue measuring 1.3 x [...] in toto in one cassette. SB amisha/09/02/2020 [facility] Department of Pathology [address] [place], [place] [address]NoCape Fear/Harnett HealthComment on above:Performed By: #### [facility] #### [facility] Surgical Pathology Department [address] [place], [place] [address]History and Physical - Surgery > 30 dayson 78-82-2471Qaonopl and Physical - Surgery > 30 daysHistory [...] T&S: O+, COVID-19: negative OB Hx: None. Group Cio Hx: As above. PMHx: endometriosis Surg Hx: diagnostic laparoscopy, appendectomy (2016) Meds: Meloxicam, [place]-Linyah, Norethindrone acetate Social Hx: No tobacco, no [...] the note. I personally evaluated the patient qq12-Nal-2130 Attending Provider Inpatient Certification StatementObservation patient/other outpatient visits Electronic Signatures: Charlene Rodriguez) (Signed 01-Sep-2020 10:04) Authored: Note Completion Co-Signer: History of Present Illness, Home Medication Review, Impression/Procedure, ERAS, Physical Exam, Consent, Note Completion Chelsie Leal (Resident)) (Signed 31-Aug-2020 15:44) Authored: History of Present Illness, Home Medication Review, Impression/Procedure, ERAS, Physical Exam, Consent, Note Completion Last Updated: 01-Sep-2020 10:04 by Charlene Rodriguez ()[facility] Medical CenterHomegoing Instructionson 41-19-2075Kvdegdxcn InstructionsAdditional Instructions: Handouts Given: Topic 1Anesthesia Homegoing Instructions Topic 2Surgical Site Infection Handout Topic 3New Medication Education Topic 4Suggamedex handout Electronic Signatures: Aminata Gomez) (Signed 01-Sep-2020 16:07) Authored: Additional Instructions Last Updated: 01-Sep-2020 16:07 by Aminata Gomez (DIALLO)[facility] CenterPatient Profile - Preop v2on 23-49-3297Jzzocgb Profile - Preop p5Olejdtb: Initial Info: How to be Addressedalexis Spoken Language PreferredEnglish Are you currently using the [employer] Health Record or MYUHCAREyes Stated Reason for Admissionseeing if my endometriosis is back Primary Contact Name and Numberyakovan [phone] Patient Belongingsclothing locker glasses with bf Medications Brought to Hospitalno General Health: Weight in kg55.6 kilogram(s) Weight in vce960.5 pound(s) Weight Methodactual (measured) Scale Typestanding Height [...] Arrangementshouse Lives Withparent(s) Resource/Environmental Concernsnone [facility] Anticipated at Transitionnone Substance: Current [...] Learning Preferencesverbal instruction Cultural Considerationsnone Developmental Considerationsnone Jainism Considerationsnone Other learner availableno Falls RiskPatient location auto qualifies him/her for HIGH RISK. Are there any cultural, spiritual, hinduism practices/values/needs that are important for us to knowno Pain Scalenumerical 0-10 Pain Scale Educationteaching provided Current Pain Level0 = None Acceptable Pain Level5 = Moderate Chronic Painno Information Review: Allergies, Home Meds and Significant Events have been Reviewed and Verified with Patient/Familyyes Allergy, Intolerance, Adverse Event: Allergies: No Known Allergies: Active Electronic Signatures: Esmonde, Sierra (RN) (Signed 01-Sep-2020 12:39) Authored: Initial Info, General Health, Health Mgmt, Relationship/Environ, Substance, Risk Screens, Additional Information Last Updated: 01-Sep-2020 12:39 by Sierra Kraft (RN) References: 1. Data Referenced From History and Physical - Surgery > 30 days 01-Sep-2020 03:42[facility] Medical CenterPreop Checkliston 10-89-0376Ghewj Checklist Preop Checklist: Preop Checklist: Arrival Jnjx50-Bwv-8815 Arrival Time12:30 Procedure Typelaparoscopic endometriosis excision NPO Iwrmqj61-Cgf-6512 00:00 ID Band Onyes Allergy Bandno known [...] Last Updated: 01-Sep-2020 12:35 by Sierra Kraft (DIALLO)[facility] Medical CenterANTIBODY IDENT.on 56-82-5305ZPOOMZYG IDENT.SEE BELOWSaint Francis Medical CenterComment on above:Result Comment: NO CLINICALLY SIGNIFICANT ANTIBODIES IDENTIFIED.Performed By: #### ABID #### [facility] [address] [place], [place] [address]BUYob 11-04-3846Lkrfacrmltj distribution width (RBC) [Ratio] 12.1 %Aelypn37.5 - 14.5Community Medical CenterComment on above:Performed By: #### CBC #### [address] [id number] (Bld) [Volume fraction]39.6 %Ridhkj84.0 - 46.0Community Medical CenterComment on above:Performed By: #### CBC #### [address] [id number] (Bld) [Mass/Vol]12.6 g/aHQkwdbr64.0 - 16.0Community Medical CenterComment on above:Performed By: #### CBC #### [address] [id number] (RBC) [Mass/Vol]31.8 g/dLLow32.0 - 36.0Community Medical CenterComment on above:Performed By: #### CBC #### [address] [id number] (RBC) [Entitic vol]90 eFPptqan00 - 100Community Medical CenterComment on above:Performed By: #### CBC #### [address] [id number] (Bld) [#/Vol]333 10*3/dXRsxute496 - 450Community Medical CenterComment on above:Performed By: #### CBC #### [address] [id number] x10E12/LNormal4.00 - 5.20[facility] Comment on above:Performed By: #### CBC #### [address] [id number] (Bld) [#/Vol]5.6 10*3/uLNormal4.4 - 11.3Community Medical CenterComment on above:Performed By: #### CBC #### [address] [id number] 2019, SCREEN ASYMPTOMATICon 61-78-5841KKZL-CoV-2 (COVID-19) RNA TENA+probe Ql (Unsp spec)Not detectedNormalNot DetectedCommunity Medical CenterComment on above:Result Comment: This assay is designed [...] patient management decisions. Fact sheet for providers: https://www.fda.gov/media/222615/download Fact sheet for patients: https://www.fda.gov/media/349067/download This test has received FDA Emergency Use Authorization (EUA) and has been verified by [facility] ([facility]). This test is only authorized for the duration of time that circumstances exist to justify the authorization of the emergency use of in vitro diagnostic tests for the detection of SARS-CoV-2 virus and/or diagnosis of COVID-19 infection under section 564(b)(1) of the Act, 21 U.S.C. 360bbb-3(b)(1), unless the authorization is terminated or revoked sooner. [facility] is certified under CLIA-88 as qualified to perform high complexity testing. Testing is performed in the [facility] laboratories located at [address] [place] [address].Performed By: #### COVSC #### [place], [place] [address]Lab Specimen SourceNasal, NasopharyngealNoSpalding Rehabilitation HospitalComment on above:Performed By: #### COVSC #### [address] [place], [place] [address]TYPE + SCREENon 26-18-8444TYO TYPEONoCape Fear/Harnett HealthComment on above:Performed By: #### T+S #### [facility] [address] [place], [place] [address]NZ TYPEPositiveNoCape Fear/Harnett HealthComment on above: Performed By: #### T+S #### [facility] [address] [place], [place] [address]ZXS TYPECanceledSwift County Benson Health ServicesComment on above:Order Comment: TEST TYPE + SCREEN WAS CANCELLED, 08/30/2020 13:37 JOP. Performed By: #### T+S #### [facility] [address] [place], [place] [address]KH TYPECancelGrand Itasca Clinic and HospitalComment on above:Order Comment: TEST TYPE + SCREEN WAS CANCELLED, 08/30/2020 13:37 JOP. Performed By: #### T+S #### [facility] [address] [place], [place] [address]IMSVpe 03-95-6280TANFGaoerjr:Driss Cope MRN: Height:5' 2 (1.575 m) Weight:120 [...] the following basenames: K,HCT Progress Notes ([facility] REJ AV4): Jaquelin Wesley Ma [...] 1 10 oz. Bottle of Magnesium Citrate (Lemon/Cabazon) ? A test for COVID 19 test [...] toast without seeds (not multigrain); pretzels; waffles, Indonesian toast and pancakes; white rice, noodles, pasta, macaroni, peeled cooked potatoes; Special K, Rice Krispies or [place] Flakes cereals; ripe bananas; melons (except watermelon [...] make sure you have a responsible adult route sales delivery driver to take you home after procedure. Due to having sedation, you may not drive the rest of the day. ? If you need to reschedule, please call [phone] ?Date/Provider Dr Cruz Procedure:colonoscpy Facility:[facility] Prep ordered( if aware):miralax Knowledge of prep instructions:posted to [facility] Diabetic:no Blood Thinners:no Pacemaker with defibrillator:no left message for patient to return call. Nurse triage please give below message. PLEASE READ PATIENT INSTRUCTIONS BELOW. THANK YOU.[facility]aptist Health PaducahPROGRESS on [id number] ID: [id number] Author: Leon Perkins (Rt) Fito Blanchard Service: Radiology Author Type: Wash Box Operator Type: Progress Notes Filed: 07/29/2020 11:06 AM [...] BY: RT Daya July 29, 2020 11:01 [facility] RichmondXR ABD 2V SUPINE W UPR/DECUB/CTLon 33-56-8455GQ ABD 2V SUPINE W UPR/DECUB/CTL* * *Final [...] structures are normal. No other significant abnormality. Accounts Receivable Executive: PSCB Transcribe Date/Time: Jul 29 2020 11:19A Dictated by : LALI ORNELAS MD This examination was interpreted and the report reviewed and electronically signed by: LALI ORNELAS MD on Jul 29 2020 11:19AM EST [id number] Hospital Vital Signs Date TimeVital SignValuePerforming AlbvbgxpiRdsklbad24-99-4633 16:04-0400Body mass index (BMI) [Ratio]29.78 kg/s4Dmflq Kiesha DO Work Phone: [phone] [place], [place] [address]Qahhuyivff00-99-8701 16:04-0400Body .85 kgCorey Kiesha DO Work Phone: [phone]10-22-2025 16:04-0400Diastolic blood itejxvig02 mm[Hg]Nathan Kiesha DO Work Phone: [phone] [place], [place] [address]Gbjfcltcbc57-11-5542 16:04-0400Systolic blood etnmdsen746 mm[Hg][facility] Work Phone: [phone] [place], [place] [address]Ycrzfwjwkd01-57-3361 10:34-0400Body mass index (BMI) [Ratio]29.26 kg/r7DxajuwhzQuynh Monroy MD Work Phone: [phone])166-[address] [place], [place] 1808710-16-2025 10:34-0400Body qwxrri25.58 kgQuynh Monroy MD Work Phone: [phone] [place], [place] [address]10-16-2025 10:34-0400Diastolic blood jyenypxn71 mm[Hg]Quynh Monroy MD Work Phone: [phone]-[address] [place], [place] 1808710-16-2025 10:34-0400Systolic blood nkpzenxo599 mm[Hg]Quynh Monroy MD Work Phone: [phone] [place], [place] 9213010-10-2025 14:48-0400Body sljpge937.5 cmMine Denise MD Work Phone: [phone] [place], [place] 9213010-10-2025 14:48-0400Body mass index (BMI) [Ratio]29.04 kg/c0QluclxMine Denise MD Work Phone: [phone] [place], [place] 9213010-10-2025 14:48-0400Body epzqpk12.03 kgMine Denise MD Work Phone: [phone] [place], [place] 9213010-10-2025 14:48-0400Diastolic blood jqegkali98 mm[Hg]Mine Denise MD Work Phone: [phone] [place], [place] 9213010-10-2025 14:48-0400Heart rate 104 /minMine Denise MD Work Phone: [phone] [place], [place] 9213010-10-2025 14:48-0400Systolic blood mm[Hg]Mine Denise MD Work Phone: [phone] [place], [place] 9213010-09-2025 15:54-0400Body mass index (BMI) [Ratio]29.41 kg/j0WqcbsmutMarbella Keane HEAVY ANTIARMOR WEAPONS INFANTRYMAN Work Phone: [facility] CenterTzfzgluucl21-35-5903 15:54-0400Body ildwvq25.94 kgMarbella Keane HEAVY ANTIARMOR WEAPONS INFANTRYMAN Work Phone: [phone]10-09-2025 15:54-0400Diastolic blood iawafwjz90 mm[Hg]Marbella Keane HEAVY ANTIARMOR WE[employer] INFANTRYMAN Work Phone: [phone]10-09-2025 15:54-0400Systolic blood hlsmojvh473 mm[Hg]Marbella Keane HEAVY ANTIARMOR WEAPONS INFANTRYMAN Work Phone: [phone])847-[facility] CenterKrfrzgscvh02-72-4888 15:37-0400Body mass index (BMI) [Ratio]29.23 kg/g7IvvnjatdMarbella Keane HEAVY ANTIARMOR [employer] INFANTRYMAN Work Phone: [facility] CenterCrcbkuxrzv97-11-1584 15:37-0400Body eiwxat84.48 kgMarbella Keane HEAVY ANTIARMOR WE[employer] INFANTRYMAN Work Phone: [facility] CenterYtbkdbwhlr93-30-9237 15:37-0400Diastolic blood gtsawdvc26 mm[Hg]Marbella Keane HEAVY ANTIARMOR [employer] INFANTRYMAN Work Phone: [facility] CenterVayvrjjsza93-43-7039 15:37-0400Systolic blood mm[Hg]Marbella Keane HEAVY ANTIARMOR [employer] INFANTRYMAN Work Phone: [facility] CenterMwbskkqazt92-22-7291 15:55-0400Body mass index (BMI) [Ratio]29.45 kg/w4IpxmbvTeena Sarmiento RN Work Phone: [phone] [place], [place] 1808709-29-2025 15:55-0400Body sbqbek54.03 kgTeena Sarmiento RN Work Phone: [phone] [place], [place] 1808709-17-2025 14:32-0400Body mass index (BMI) [Ratio]27.82 kg/p9Lpbft Kiesha DO Work Phone: [facility] CenterAxakideipz77-52-7785 14:32-0400Body nssikl57 kg Nathan Kiesha DO Work Phone: [facility] CenterEkfnmgcevw55-86-5540 14:32-0400Diastolic blood zapscxia62 mm[Hg]Nathan Kiesha DO Work Phone: [facility] CenterYrgtqriahs74-60-3225 14:32-0400Systolic blood tpldeqzf934 mm[Hg]Nathan Kiesha DO Work Phone: [facility] CenterUcqexxegtp37-56-9251 15:36-0400Body gwypbn953.5 cmGeorge Kaftan DO Work Phone: NOUniversity Health Lakewood Medical CenterHaupqzkiiw59-97-7722 15:36-0400Body mass index (BMI) [Ratio]27.62 kg/p7Mpqfwr Kaftan DO Work Phone: [place] [address]Gxobnprsrx50-22-0286 15:36-0400Body temperature 97.11 [degF]Nay Kaftan DO Work Phone: noUniversity Health Lakewood Medical CenterRnwvrzkrdd90-66-2356 15:36-0400Body ctkiue16.49 kgGeorsherita Beltran DO Work Phone: [facility] CenterQytensuyum29-36-2966 15:36-0400Diastolic blood tjwmkfiv34 mm[Hg]Nay Beltran DO Work Phone: [facility] CenterMkskmcpsbw56-46-4371 15:36-0400Heart rate97 /min Nay Beltran DO Work Phone: [facility] CenterSlrittmlwm96-00-8180 15:36-0734XeU3% (BldA) [Mass fraction]98 %Nay Beltran DO Work Phone: [facility] CenterCmvpabmjwo19-81-2708 15:36-0400Systolic blood szhpszej429 mm[Hg]Nay Beltran DO Work Phone: [facility] CenterEnvtrntyyj22-80-8110 15:42-0400Body mass index (BMI) [Ratio]26.48 kg/a5Ubvly Kiesha DO Work Phone: [facility] CenterLqqdsrtjly97-33-9060 15:42-0400Body qxukud63.68 kgCorey Kiesha DO Work Phone: [facility] CenterWzwjpzwieq69-66-2060 15:42-0400Diastolic blood hdasklfl75 mm[Hg]Nathan Kiesha DO Work Phone: [facility] CenterHahpuopdgf76-42-7958 15:42-0400Systolic blood hsenatrn704 mm[Hg]Nathan Kiesha DO Work Phone: [facility] CenterHxkqkhiiua30-37-6026 14:33-0400Body mass index (BMI) [Ratio]26.73 kg/u8Mmmjs Kiesha DO Work Phone: [facility] CenterMcjsssmilh38-05-6144 14:33-0400Body wsvohy31.28 kgCorey Kiesha DO Work Phone: [facility] CenterVxilfxlqjx16-34-2944 14:33-0400Diastolic blood fgtlytof57 mm[Hg]Nathan Kiesha DO Work Phone: [facility] CenterXictxftgti64-08-5469 14:33-0400Systolic blood mm[Hg]Nathan Kiesha DO Work Phone: [phone] [place], [place] [address]Zimzxmpnyz06-82-6885 14:45-0400Body mass index (BMI) [Ratio]25.24 kg/a5Ctxte Kiesha DO Work Phone: [phone] [place], [place] [address]Njvazmlfog99-58-4454 14:45-0400Body tasrhx29.6 kg Nathan Kiesha DO Work Phone: [facility] CenterRecldrohzs14-15-6015 14:45-0400Diastolic blood llygferm33 mm[Hg]Nathan Kiesha DO Work Phone: [facility] CenterMwqewbrmdx80-23-9221 14:45-0400Systolic blood ljeczkoy651 mm[Hg]Nathan Kiesha DO Work Phone: [phone] [place], [place] [address]Lbfubkflim55-80-7460 10:29-0400Body mass index (BMI) [Ratio]25.68 kg/m2[facility]06-06-2025 10:29-0400Body briqff45.69 [facility]02-24-2025 15:08-0500Body mass index (BMI) [Ratio]25.99 kg/r6Cztbf Kiesha DO Work Phone: [facility] CenterKrremnqipg87-35-9641 15:08-0500Body afadxe13.47 kgCorey Kiesha DO Work Phone: [facility] CenterPjqaaewnwu34-51-6633 15:08-0500Diastolic blood czuasspc11 mm[Hg]Nathan Kiesha DO Work Phone: [facility] CenterBkkvzkxeuo02-87-7853 15:08-0500Systolic blood mm[Hg]Nathan Kiesha DO Work Phone: [facility] CenterJazcwzmkkw49-60-1404 15:53-0500Body igzkte117.5 cmGeorge Nirajan DO Work Phone: NOUn[facility] CenterBhbjftqayh80-84-6778 15:53-0500Body mass index (BMI) [Ratio]25.61 kg/t9Qvdwosmartha Beltran DO Work Phone: SVUniversity [facility] Medical CenterRcdqxraibk35-42-2819 15:53-0500Body temperature 97.11 [degF]Nay Beltran DO Work Phone: NOU[facility] CenterHtodcxzbsv08-74-0327 15:53-0500Body qeeyer16.5 kg Nay Beltran DO Work Phone: noUniversity [facility] CenterBtsciogfms74-99-2357 15:53-0500Diastolic blood npsotwzt75 mm[Hg]Nay Beltran DO Work Phone: ZSUniversity Health Lakewood Medical CenterUhaqyjpvcn02-04-7112 15:53-0500Heart rate51 /min Nay Beltran DO Work Phone: XOUniversity [facility] CenterKwznqyjzjr09-73-3747 15:53-4076YrK1% (BldA) [Mass fraction]98 %Nay Beltran DO Work Phone: noUniversity [facility] CenterKsbbopfwdo83-83-2344 15:53-0500Systolic blood qalzyffw101 mm[Hg]Nay Beltran DO Work Phone: noUniversity [facility] CenterWnmguauobc37-41-9115 11:15-0400Body mass index (BMI) [Ratio]25.97 kg/g9Ofbvt Kiesha DO Work Phone: [facility] CenterOhbzatjwnq35-71-8614 11:15-0400Body zlmgju08.41 kgCorepearl Cabrerao DO Work Phone: [facility] CenterWxjifxivvf12-94-2132 11:15-0400Diastolic blood uhaxknyr75 mm[Hg]Nathan Cabrerao DO Work Phone: [facility] CenterSwujmzyowd11-19-5642 11:15-0400Systolic blood mm[Hg]Nathan Cabrerao DO Work Phone: [facility] CenterPbutvyunlt31-99-4128 10:02-0400Body mass index (BMI) [Ratio]25.39 kg/s0Kyrlo Kiesha DO Work Phone: [facility] CenterZvvtqswbfq04-29-2977 10:02-0400Body omwbta89.96 kgCorey Kiesha DO Work Phone: [facility] CenterScwovsnkod30-87-7992 10:02-0400Diastolic blood aaqhjehe47 mm[Hg]Nathan Kiesha DO Work Phone: [facility] CenterZvouydquva19-20-6857 10:02-0400Systolic blood fmbolflp535 mm[Hg]Nathan Kiesha DO Work Phone: [facility] CenterRvrajmkbgb80-72-1856 10:55-0500Body mass index (BMI) [Ratio]28.17 kg/i5Zootj Kiesha DO Work Phone: [phone] [place], [place] [address]Ijdpgdksky53-40-0077 10:55-0500Body pcbifg42.85 kgCorey Kiesha DO Work Phone: [phone] [place], [place] [address]Wawbegbhfq83-65-6502 10:55-0500Diastolic blood rbgpuzgz09 mm[Hg]Nathan Kiesha DO Work Phone: [facility] CenterOtjnhadral83-61-3208 10:55-0500Systolic blood lvqqlits967 mm[Hg]Nathan Kiesha DO Work Phone: [phone] [place], [place] [address]Kxqctrrldv50-66-5280 17:31-0400Body temperature 98.96 [degF][facility]10-18-2023 17:31-0400 Diastolic blood fqdoatas22 mm[Hg][facility] [address] [place], [place] [address]10-18-2023 17:31-7366DLS4 99 %[facility]10-18-2023 17:31-0400Heart wmpi702 /Janet [facility]10-18-2023 17:31-0400 Respiratory rate16 /minV[facility]10-18-2023 17:31-0400 Systolic blood sxlaumfx202 mm[Hg][facility] [address] [place], [place] 9306406-06-2023 10:55-0400Body irnrxw978.5 cmErin Reaper HOT ROLL INSPECTOR.WINDOWS CONSULTANT Work Phone: [phone] Negqcm51-22-6900 10:55-0400Body xittnw66.86 kgErin Reaper HOT ROLL INSPECTOR.WINDOWS CONSULTANT Work Phone: [place] Iqidjg39-18-4617 10:55-0400Diastolic blood cnerfhhi14 mm[Hg]Srinivasa Reaper HOT ROLL INSPECTOR.WINDOWS CONSULTANT Work Phone: [place] Rzozei40-18-0759 10:55-0400Systolic blood czhkteuc148 mm[Hg]Srinivasa Reaper HOT ROLL INSPECTOR.WINDOWS CONSULTANT Work Phone: [phone] Vijvug85-20-8444 19:18-0500Diastolic blood eydmirix11 mm[Hg][facility]03-08-2023 19:18-0500Heart rate98 /[facility]03-08-2023 19:18-0500Nursing Progress Note ReasonOther: this RN discharged pt. pt verbalizes understanding and denies questiosn prior to discharge.[facility]03-08-2023 19:18-0500Respiratory rate16 /min[facility]03-08-2023 19:18-4766QxY2% (BldA) [Mass fraction]100 %[facility]03-08-2023 19:18-0500 Systolic blood uoxmpxuz658 mm[Hg][facility] 01-31-2023 18:00-0500Diastolic blood tujckncx36 mm[Hg][facility]03-08-2023 18:00-0500Heart nzcr733 /min[facility]03-08-2023 18:00-0500Mean blood hwszjabk182 mm[Hg][facility]03-08-2023 18:00-3530UkJ3% (BldA) [Mass fraction]99 %[facility]03-08-2023 18:00-0500 Systolic blood ytqmgioy425 mm[Hg][facility] 01-31-2023 17:00-0500Diastolic blood mm[Hg][facility]03-08-2023 17:00-0500Mean blood rmxtaftb273 mm[Hg][facility]03-08-2023 17:00-0500Systolic blood pressure 117 mm[Hg][facility]03-08-2023 16:38-0500Heart edkl547 /min[facility]03-08-2023 16:38-0500Mean blood kboblzdm534 mm[Hg][facility]03-08-2023 16:38-0500Respiratory rate18 /[facility] 01-31-2023 13:49-0500Body mphjieyiidx32.88 [degF][facility]03-08-2023 13:49-0500Heart rguk601 /[facility]02-04-2023 14:55-0500Body uteopcjszvj31.88 [degF][facility]02-04-2023 14:55-0500Diastolic blood mm[Hg][facility]02-04-2023 14:55-0500Heart rate84 /min[facility]02-04-2023 14:55-0500Mean blood tcsflehd672 mm[Hg][facility]02-04-2023 14:55-0500Respiratory rate20 /[facility]02-04-2023 14:55-0628EeX2% (BldA) [Mass fraction]98 %[facility]02-04-2023 14:55-0500Systolic blood pressure 137 mm[Hg][facility]02-04-2023 14:35-0500Body .88 [degF][facility]02-04-2023 14:35-0500Diastolic blood pngrywtg30 mm[Hg][facility]02-04-2023 14:35-0500Heart rate82 /min[facility]02-04-2023 14:35-0500Mean blood szeetxwo59 mm[Hg][facility]02-04-2023 14:35-0500Respiratory rate16 /[facility]02-04-2023 14:35-9937WwQ3% (BldA) [Mass fraction]97 %[facility]02-04-2023 14:35-0500Systolic blood pvwjhzcy081 mm[Hg][facility]02-04-2023 13:35-0500Body ufienzpgibj09.88 [degF][facility]02-04-2023 13:35-0500Diastolic blood rymbgzpe65 mm[Hg][facility]02-04-2023 13:35-0500Heart rate80 /[facility]02-04-2023 13:35-0500Mean blood hawgbqza36 mm[Hg] [facility]02-04-2023 13:35-0500Respiratory rate 17 /min[facility]02-04-2023 13:35-0022UmZ6% (BldA) [Mass fraction]96 %[facility]02-04-2023 13:35-0500Systolic blood zfqxtumd382 mm[Hg][facility]02-04-2023 13:00-0500Respiratory rate12 /minAstrit [facility]02-04-2023 12:55-0500Respiratory rate9 /minAstrit [facility]02-04-2023 12:50-0500Respiratory rate10 /minAstrit [facility]02-04-2023 08:15-0500Body hexypveyatg55.24 [degF] [facility]02-04-2023 08:15-0500Heart wcrt720 /minAstrit [facility]01-07-2023 13:41-0500Body soypzgljarq38.2 [degF]Ritu Ryder DO Work Phone: [facility] CenterUhwmup69-48-3466 13:41-0500Diastolic blood mm[Hg]Ritu Ryder DO Work Phone: 1([phone] [place], [place] [address]Eurjex18-37-7424 13:41-0500Heart bnov300 /min Ritu Ryder DO Work Phone: [facility] CenterZossjn96-99-6720 13:41-0500Respiratory rate18 /minRitu Ryder DO Work Phone: [facility] CenterGcxgsz62-12-6830 13:41-9712OiV9% (BldA) [Mass fraction]99 %Ritu Ryder DO Work Phone: [facility] CenterWfvdcc88-55-9754 13:41-0500Systolic blood cowwohyr006 mm[Hg]Ritu Ryder DO Work Phone: [facility] CenterQqmsym21-44-7274 00:45-0500Body .5 cm Ritu Ryder DO Work Phone: [facility] CenterAcmbpb70-88-4222 00:45-0500Body mass index (BMI) [Ratio]25.61 kg/u5ZqxiyupspRitu Ryder DO Work Phone: [facility] CenterBukomb12-13-3317 00:45-0500Body yhqbey50.5 kg Ritu Ryder DO Work Phone: [facility] Ksqdsd42-52-6229 22:26-0500Hourly Rounding Fredi DORSEY [address] [place], [place] [address]Comment on above:Result Comment: ensured that all pt belongings are sent with pt. pt has no questions or concerns. report given to EMS. pt stable and no s/s of distress. pt off unit to ernqaxat16-50-3298 22:00-0500Diastolic blood fhnboywh85 mm[Hg]Fredi SCHUMACHERASIK [address] [place], [place] 1548201-02-2023 22:00-0500Heart evdq695 /minCjory KARASIK [address] [place], [place] 1548201-02-2023 22:00-0500 Hourly RoundingFredi ABREUK [address] [place], [place] 1548201-02-2023 22:00-0500Mean blood mm[Hg]Fredi SCHUMACHERASIK [address] [place], [place] 1548201-02-2023 22:00-0500 Systolic blood jdzdamqc617 mm[Hg]Fredi KARASIK [address] [place], [place] 1548201-02-2023 21:50-0500Blood Pressure LocationGregrosa SCHUMACHERASIK [address] [place], [place] 1548201-02-2023 21:50-0500 Diastolic blood ebyggjap06 mm[Hg]Fredi KARASIK [address] [place], [place] 1548201-02-2023 21:50-0500Heart fvui328 /minCjory KARASIK [address] [place], [place] 1548201-02-2023 21:50-0500 Hourly RoundingFredi KARASIK [facility]01-02-2023 21:50-0500Mean blood yzankuwl179 mm[Hg]Fredi KARASIK [facility]01-02-2023 21:50-0500 Respiratory rate18 /minFredi KARASIK [address] [place], [place] 1548201-02-2023 21:50-9963TuG2% (BldA) [Mass fraction]98 %Fredi SCHUMACHERASIK [address] [place], [place] 1548201-02-2023 21:50-0500 Systolic blood jwfuuqrq218 mm[Hg]Fredi KARASIK [address] [place], [place] 1548201-02-2023 21:37-0500Blood Pressure LocationFredi KARASIK [address] [place], [place] 1548201-02-2023 21:37-0500 Diastolic blood kvdcjqif29 mm[Hg]Fredi KARASIK [address] [place], [place] 1548201-02-2023 21:37-0500Heart tyze674 /minFredi KARASIK [address] [place], [place] 1548201-02-2023 21:37-0500Mean blood mm[Hg]Fredi KARASIK [facility]01-02-2023 21:37-1340XtP7% (BldA) [Mass fraction]97 %Fredi KARASIK [facility]01-02-2023 21:37-0500 Systolic blood dmdmpewx405 mm[Hg]Fredi KARASIK [address] [place], [place] 1548201-02-2023 21:30-0500Blood Pressure LocationCjory KARASIK [address] [place], [place] 1548201-02-2023 21:30-0500Body ymozhajnour52.6 [degF]Fredi KARASIK [address] [place], [place] 1548201-02-2023 19:00-0500Body sigqglnobmy47.24 [degF]Fredi KARASIK [facility]01-02-2023 17:15-0500Body bkgakmbsblc76.06 [degF]Fredi DORSEY [facility]01-02-2023 14:02-0500Heart rate99 /minFerdi DORSEY [facility]08-19-2022 07:00-0400Body tqqfgecmrpc45.6 [degF]Kaylinn Dokken [address]08-19-2022 07:00-0400 Diastolic blood lqpbbxul97 mm[Hg]Kaylinn Dokken [address] [place], [place] 5612508-19-2022 07:00-0400Heart rate80 /minKaylinn Dokken [address]08-19-2022 07:00-0400Mean blood wfhrasds28 mm[Hg]Kaylinn Dokken [address]08-19-2022 07:00-0400 Respiratory rate17 /minKaylinn Dokken [address]08-19-2022 07:00-0400 Systolic blood vdlrmjae473 mm[Hg]Kaylinn Dokken [address]08-19-2022 06:07-0400Body bektiyzqfkw91.24 [degF]Kaylinn Dokken [address] [place], [place] 5612508-19-2022 06:07-0400 Diastolic blood finpescj93 mm[Hg]Kaylinn Dokken [address] [place], [place] 5612508-19-2022 06:07-0400Heart rate90 /minKaylinn Dokken [address]08-19-2022 06:07-0400 Respiratory rate18 /minKumar Villagomez [facility]08-19-2022 06:07-6041TeV4% (BldA) [Mass fraction]100 %Kumar Villagomez [facility]08-19-2022 06:07-0400 Systolic blood btvfipte038 mm[Hg]Kumar Villagomez [facility]08-19-2022 05:30-0400 Hourly RoundingCorey KIESHA [facility] HospitalComment on above:Result Comment: Pt discharged per physician orders. Pt ambulates off unit with a steady bred01-24-7914 05:15-0400Diastolic blood mm[Hg]Nathan KIESHA [address] [place], [place] 1548208-19-2022 05:15-0400Heart lupb853 /minCorey KIESHA [address] [place], [place] 1548208-19-2022 05:15-0400 Hourly RoundingCorey KIESHA [facility]08-19-2022 05:15-0400Mean blood kimfpapj95 mm[Hg]Nathan KIESHA [facility]08-19-2022 05:15-0400 Respiratory rate18 /minCorey KIESHA [facility]08-19-2022 05:15-0400 Systolic blood mbuokyhe630 mm[Hg]Nathan KIESHA [facility]05-24-2022 11:00-0400Body liodjl782.02 cmCamerpreston Hodges Other [employer] Other 05-24-2022 11:00-0400Body mass index (BMI) [Ratio] 23.03 kg/l5Fswhwzj Ditty [facility] [employer] Other 05-24-2022 11:00-0400Body tczgip01.97 kgCamdorene Loratty Other [employer] Other 03-17-2022 11:41-0400Body yvvlcw609.48 cmMegan Billow DO Work Phone: ZT-GVCFO[address] Work Phone: [phone] 11:41-0400Body mass index (BMI) [Ratio] 24.51 kg/k6Cdbpz Billow DO Work Phone: GU-YZAVQ[address] Work Phone: [phone] 11:41-0400Body surface area Derived from formula1.61 b2Orwcn Billow DO Work Phone: YY-PVNOT[address] Work Phone: [phone] 11:41-0400Body bynoiq64.78 kgMegan Billow DO Work Phone: FE-DTMSB[address] Work Phone: [phone] 11:41-0400Diastolic blood obnglzuo56 mm[Hg] Charlene Billow DO Work Phone: KH-OIJOT[facility] Work Phone: [phone] 11:41-0400Systolic blood hzswdixr795 mm[Hg] Charlene Billow DO Work Phone: PD-WODSK[address] Work Phone: [phone] 11:41-03248 1Megan Billow DO Work Phone: VP-YTWBP[address] Work Phone: Comment on above:MTDAQSNWLndcCdunb76-42-6035 14:53-0400Body ugynpw356.48 cmMegan Billow DO Work Phone: UZ-ETOWE[address] Work Phone: [phone] 14:53-0400Body mass index (BMI) [Ratio] 21.77 kg/v8Xievs Billow DO Work Phone: VD-BFLHM[address] Work Phone: [phone] 14:53-0400Body surface area Derived from formula1.53 h7Dkxmm Billow DO Work Phone: LG-UYRYL[address] Work Phone: [phone] 14:53-0400Body suyxha83.98 kgMegan Billow DO Work Phone: VG-VMHDK[facility] Work Phone: [phone] 14:53-0400Diastolic blood vlpybofk91 mm[Hg] Charlene Billow DO Work Phone: IG-IFYAU[address] Work Phone: [phone] 14:53-0400Heart bjmu586 /minMegan Billow DO Work Phone: RK-KWMZX[address] Work Phone: [phone] 14:53-0400Systolic blood fapegyvq472 mm[Hg] Charlene Billow DO Work Phone: PZ-RYWZE[facility] Work Phone: [phone] 14:53-74293 1Megan Billow DO Work Phone: BU-XDYEH[address] Work Phone: [phone] on above:GRAVPARAPainScale Encounters Encounter DateEncounter TypeCare ProviderFacilityStart: 09-21-2025 End: 77-36-1665uvmzrqmyuoWkbszvt E Lavoy PA-C Work Phone: [phone]-Eujus Medicine at [facility] Comment on above:Insulin controlled gestational diabetes mellitus (GDM) in third trimester (Primary Dx); Essential hypertension affecting in third trimesterStart: 09-21-2025 End: 54-58-8857Ivzmqgdmq encounterRaheemvaleria Shahab EDOUARD Work Phone: [phone]-Lsdte Medicine at [facility] Start: 09-19-2025 End: 65-05-6059Syvkefyja Result EncounterMarbella Keane NP Work Phone: noms External Department UnsolicitedStart: 09-19-2025 End: 54-56-1907Eypmxgkgv Result EncounterMarbella Keane NP Work Phone: noms External Department UnsolicitedStart: 09-17-2025 End: 18-48-4110Nidodg Breanna CAGE Work Phone: [phone]-Eaavb Medicine at [facility] Comment on above:Essential hypertension affecting in third trimester Start: 09-16-2025 End: 50-53-3687eiwxerayjmNXLWG FAZIONot AvailableStart: 09-16-2025 End: 88-58-1108Fglxvnog flow sheetCorey Kiesha DO Work Phone: noms [facility]mane OBGYNComment on above:29 weeks gestation of ([facility]); Third trimester ([facility]); Hypertension affecting , antepartum ([facility]); Gestational diabetes mellitus (GDM), antepartum, gestational diabetes method of control unspecified([facility])Start: 09-16-2025 End: 82-32-4379Ocwhrz flowsheetCorey Kiesha DO Work Phone: NOWH Jbphh OBGYNStart: 09-16-2025 End: 40-12-4652Imzanu flowsheetCorey Kiesha DO Work Phone: noms [facility]mane OBGYNStart: 09-16-2025 End: 79-66-4945Yemdmjpqc Nirmal Harris RNMaternal- Medicine at [facility] Healthtart: 09-15-2025 End: 75-77-2281RrswtlMika Meza PA-C Work Phone: [phone]-Ypfwg Medicine at [facility] Comment on above:Essential hypertension affecting in third trimester Start: 09-10-2025 End: 60-10-4651Siciqz outpatient visit 25 minutesQuynh Monroy MD Work Phone: [facility]aternal Medicine [place] above: 28 weeks gestation of (Primary Dx); Insulin controlled gestational diabetes mellitus (GDM) in second trimester; Essential hypertension affecting in third trimesterStart: 09-10-2025 End: 53-22-3210yfrinindkiDFNKYCZR P DOCHEVALakeHealth [facility] Start: 09-04-2025 End: 42-22-5995Qkoyxn consultation new/estab patient 60 Annalee Denise MD Work Phone: [phone]-Flxzo Medicine at [facility] Comment on above:Diet controlled gestational diabetes mellitus (GDM) in second trimester (Primary Dx); Essential hypertension affecting in third trimesterStart: 09-04-2025 End: 68-06-5007whokuzpqanMJVRQB KHURSHIDPKettering Health – Soin Medical Centertart: 09-03-2025 End: 12-37-3468Gldmabsa flow Rom Keane NP Work Phone: NOMS O[facility]mane OBGYNComment on above:Hypertension affecting , antepartum ([facility]) (Primary Dx); 27 weeks gestation of ([facility]); Second trimester ([facility])Start: 09-03-2025 End: 66-29-7552rxxqfgexkdGJYFWBNC EBERLYNot AvailableStart: 09-03-2025 End: 77-65-3344Lfoygb Bárbara Keane NP Work Phone: noms [facility] OBGYNStart: 09-03-2025 End: 78-47-1078Wexmagzga Result EncounterCorey Kiesha DO Work Phone: noms External Department UnsolicitedStart: 09-03-2025 End: 76-57-4470Lxfsbhfba Result EncounterCorey Kiesha DO Work Phone: noms External Department UnsolicitedStart: 09-01-2025 End: 46-90-1526Ucyhhjltt Nirmal Harris RNMaternal- Medicine at [facility]althtart: 08-29-2025 End: 19-51-2615Fqplhbvjo Result EncounterMarbella Keane [employer] Work Phone: noms External Department UnsolicitedStart: 08-29-2025 End: 29-23-5985Jizbsoixm Result EncounterMarbella Keane HEAVY ANTIARM[employer] IN[employer]TRY[employer] Work Phone: noms External Department UnsolicitedStart: 08-27-2025 End: 46-04-1093dvxbzxiapcFPYULGAQ EBERLYNot AvailableStart: 08-27-2025 End: 00-54-2729Chkasjdi flow sheetMarbella Keane HEAVY ANTIARMOR [employer] INFANTRYMAN Work Phone: noms Ousmane OBGYNComment on above:26 weeks gestation of ([facility]); Second trimester ([facility]); induced hypertension, antepartum ([facility]); Gestational diabetes mellitus (GDM) in second trimester, gestational diabetes method of control unspecified ([facility])Start: 08-27-2025 End: 64-87-1413Eopbll flowsheetMarbella Keane HEAVY ANTIARM[employer]MAN Work Phone: N[facility] Jbphh OBGYNStart: 08-27-2025 End: 43-79-9428Szqwdl flowsheetSheelaa Lakhwinder HEAVY ANTIARM[employer] Work Phone: [facility] Jbphh OBGYNStart: 08-27-2025 End: 87-47-2527Zxywmwciw Result EncounterMarbella Keane HEAVY ANTI[employer] Work Phone: noms External Department UnsolicitedStart: 08-25-2025 End: 99-03-3703Rpenqfusz Result EncounterGeneric External Data ProviderNOMS External Department UnsolicitedStart: 08-25-2025 End: 49-51-4811Upjlsmsrg Result EncounterGeneric External Data ProviderNOMS External Department UnsolicitedStart: 08-24-2025 End: 85-50-1452icndctuqdeNedlqm M Frey RN Work Phone: [phone]-Pitel Medicine at [facility] Comment on above:Gestational diabetes mellitus (GDM) in second trimester, gestational diabetes method of control unspecifiedStart: 08-21-2025 End: 38-95-4929Iefnv abstractingScanning Provider ExternalMaternal- Medicine at [facility] Healthtart: 08-18-2025 End: 68-07-0239Ugbad abstractingQuynh Monroy MD Work Phone: [phone]-Rmxqw Medicine at [facility] Start: 08-15-2025 End: 82-25-2475sanoojtmyjVMUUZAFY EBGRISLYFacility:FTMCStart: 08-12-2025 End: 04-77-5034Wzpdzxwe flow sheetCorey Kiesha DO Work Phone: NOJB Ousmane OBGYNComment on above:24 weeks gestation of ([facility]); Second trimester ([facility]); Elevated glucose tolerance testStart: 08-12-2025 End: 47-85-9374lolngbjlebOSJHO FAZIONot AvailableStart: 08-12-2025 End: 70-77-8854aqzuonqdmtKlqtp R FAZIOFacility:FTMCStart: 08-01-2025 End: 46-67-2582ddfwsnyzioMWhit BELTRANFacility:FTMCStart: 07-30-2025 End: 87-58-9302Onzgxdc encounter statusNay Beltran DO Work Phone: [facility] Work Phone: Start: 07-30-2025 End: 27-17-1941Tdoaohxx preventive med est patient 18-39 yrsGemartha Beltran DO Work Phone: [facility] 230Comment on above: Wellness examination (Primary Dx); Hypertension, unspecified type ; Lipid screeningStart: 07-30-2025 End: 83-63-1689gbtefawvloSALQML R KAFTANNot AvailableStart: 07-30-2025 End: 48-76-1309Gwqfej flowsheetGeorge R Kaftan DO Work Phone: [facility] 230Start: 07-30-2025 End: 81-03-4033Edpuyj flowsheetGeorge R Kaftan DO Work Phone: [facility] 230Start: 07-15-2025 End: 23-14-3022Aeprskcn flow sheetCorey Kiesha DO Work Phone: [facility] OBGYNComment on above:20 weeks gestation of ([facility]); Second trimester ([facility]); Diabetes mellitus screeningStart: 07-15-2025 End: 77-10-3103oeptshyclsRJBNY FAZIONot AvailableStart: 07-15-2025 End: 81-42-6087Xfdipvqtr Result EncounterCorey Kiesha DO Work Phone: NOTT External Department UnsolicitedStart: 07-15-2025 End: 20-08-2435Plwnlrhxo Result EncounterCorey Kiesha DO Work Phone: [facility] External Department UnsolicitedStart: 06-22-2025 End: 06-37-0562Gvthoyts flow sheetCorey Kiesha DO Work Phone: [facility] OBGYNComment on above:Sinusitis, unspecified chronicity, unspecified location (Primary Dx); Second trimester ([facility]); 17 weeks gestation of ([facility]); Screening, , for anatomic survey ([facility])Start: 06-22-2025 End: 85-28-6958akfswdwobyIAVQW FAZIONot AvailableStart: 06-22-2025 End: 69-60-3844Fqxoij flowsheetCorey Kiesha DO Work Phone: [facility]BGYNStart: 06-22-2025 End: 32-14-7556Glxndy flowsheetCorey Kiesha DO Work Phone: [facility] OBGYNStart: 06-22-2025 End: 45-39-4557Awfatakd Result EncounterCorey Kiesha DO Work Phone: [facility] External Department UnsolicitedStart: 05-25-2025 End: 75-04-6796rvzeyofhtoBYWXV FAZIONot AvailableStart: 05-25-2025 End: 01-32-6611Orttjpob flow sheetCorey Kiesha DO Work Phone: NOWF BCP OBComment on above:Nonintractable episodic headache, unspecified headache type (Primary Dx); Second [facility] [facility] 13 weeks gestation of ([facility])Start: 05-25-2025 End: 95-98-7726Okujpg flowsheetCorey Kiesha DO Work Phone: noms BCP OBStart: 05-25-2025 End: 58-78-9586Lnjrou flowsheetCorey Kiesha DO Work Phone: noms BCP OBStart: 05-04-2025 End: 99-72-2711Asxjmvddb Result EncounterCorey Kiesha DO Work Phone: noms External Department UnsolicitedStart: 05-04-2025 End: 61-67-3569Rackqgfyj Result EncounterCorey Kiesha DO Work Phone: NONA External Department UnsolicitedStart: 05-01-2025 End: 50-77-0233Roatlyczf Result EncounterCorey Kiesha DO Work Phone: NOVM External Department UnsolicitedStart: 05-01-2025 End: 01-80-1617Dldinjxeb Result EncounterCorey Kiesha DO Work Phone: NOMA External Department UnsolicitedStart: 05-01-2025 End: 67-39-8471pzwmnkaevxUHMRRE KAFTANNot AvailableStart: 05-01-2025 End: 76-23-9362Conquq outpatient visit 5 minutesNoms Bcp Ob Kiesha NurseNOMS BCP OBComment on above:GA: 2y8mCaidm: 03-13-2025 End: 00-21-3803tagwfymolwCevbi R FAZIOFacility:FTMCStart: 03-13-2025 End: 39-00-1128Grrsmty encounter procedureCorey R KIESHA [facility] Start: 02-02-2025 End: 78-90-8501Mimwkln encounter procedureCruz Rodríguez MD Work Phone: [facility] [place] Work Phone: Start: 02-02-2025 End: 11-28-4192xsncichmtpTmlqz Baxter MD Work Phone: [facility] Work Phone: Start: 01-22-2025 End: 32-26-9824wqgmvkweqqVavhi R FAZIOFacility:FTMCStart: 01-22-2025 End: 80-15-7371Vxcxdaz encounter procedureCorey R KIESHA [facility] Start: 01-19-2025 End: 87-50-9764Hwlzqz outpatient visit 15 minutesCorey Kiesha DO Work Phone: noMS BCP OBComment on above:Pain in female genitalia on intercourse; EndometriosisStart: 01-19-2025 End: 55-78-9658hzivkrwyipPXZLQ FAZIONot AvailableStart: 01-19-2025 End: 53-68-1520Zarqpk flowsheetCorey Kiesha DO Work Phone: noms BCP OBStart: 01-19-2025 End: 07-35-6703Wyswvc flowsheetCorey Kiesha DO Work Phone: NOMS BCP OBStart: 12-30-2024 End: 89-34-9635bhhcviqdlmNXVTMS Bryant Walter AvailableStart: 12-30-2024 End: 10-67-3519Sqlrbf outpatient visit 15 minutesGeorge Bryant Beltran DO Work Phone: NOBJ SWS FM 230Comment on above:Hypertension, unspecified type (CMS/HCC) (Primary Dx); Paroxysmal tachycardia, unspecified (CMS/HCC); Chronic right shoulder pain; Scapular dyskinesisStart: 08-18-2024 End: 38-47-9920Bxzbeq flowsheetCorey Kiesha DO Work Phone: NOMS BCP OBStart: 08-18-2024 End: 94-90-0143Fpxxgi flowsheetCorey Kiesha DO Work Phone: NOMS BCP OBStart: 08-18-2024 End: 39-60-1208Qpieanovm Result EncounterCorey Kiesha DO Work Phone: NOWT External Department UnsolicitedStart: 08-18-2024 End: 58-83-3637Flvroih encounter procedureCorey Kiesha DO Work Phone: [facility] Work Phone: Start: 08-18-2024 End: 62-10-6667Kyidwgcj preventive med est patient 18-39 yrsCorey Kiesha DO Work Phone: NOUT BCP OBComment on above:Well woman exam with routine gynecological examStart: 07-22-2024 End: 58-83-7931Hlzpmq flowsheetCorey Kiesha DO Work Phone: NOMS BCP OBStart: 07-22-2024 End: 04-35-9642Jzjojh flowsheetCorey Kiesha DO Work Phone: NOMS BCP OBStart: 07-22-2024 End: 75-37-2435Mixdnq outpatient visit 15 minutesCorey Kiesha DO Work Phone: NOMS BCP OBComment on above:Dysmenorrhea, unspecified Start: 30-36-8285Juhicdecp encounterMegan Billow DO Work Phone: [facility] Countytart: 24-80-2310Efkpnejrw encounterMegan Billow DO Work Phone: [facility] CenterComment on above:Surgery CancelledStart: 01-10-2024 End: 82-95-7483Lwspad outpatient visit 15 minutesCorey Kiesha DO Work Phone: NOMS BCP OBComment on above:Menorrhagia with regular cycle; Pelvic pain in female; Uses controlStart: 04-58-7812EoynzbSsvqo Billow DO Work Phone: [facility] CenterComment on above:Refill Request Start: 29-41-5598wmkhtocmjqLxqib Billow DO Work Phone: Obstetrics/GynecologyComment on above:painStart: 12-10-2023 End: 86-57-5956eebkurorleFOPPH BILLOWFacility:[facility] Centertart: 90-49-4150vgymcglmxyPljap Billow DO Work Phone: [facility]ALtart: 10-06-2523Ifiybhn encounter procedureMegan Billow DO Work Phone: Obstetrics/GynecologyComment on above:office visit Start: 09-12-2023 End: 96-35-5340Ueyyyzuvz department patient visitVon Loco [facility] Start: 20-17-7398Tccdfo pelvic examinationMegan Billow DO Work Phone: Obstetrics/GynecologyComment on above:Pelvic pain in female (Primary Dx)Start: 11-82-7694ztejatvcklLffrp Billow DO Work Phone: Obstetrics/GynecologyComment on above:painful periods Start: 08-24-2023 End: 79-77-5890Yzhhhl pelvic examinationSrinivasa Downs APRN.WINDOWS CONSULTANT Work Phone: GynecologyComment on above:High-tone pelvic floor dysfunction (Primary Dx); Chronic pelvic pain in femaleStart: 08-24-2023 End: 63-23-7659Ppttfwmdczai consultation with Kelton Downs APRN.WINDOWS CONSULTANT Work Phone: ccf [facility] MAINStart: 08-24-2023 End: 69-16-3126qmxbmzxuceAYOY REAPERFacility:[facility] HospitalStart: 90-34-7202svttjirnxsEdxjt Billow DO Work Phone: Obstetrics/GynecologyComment on above:painful period Start: 26-25-2755Mpgheairs encounterMegan Billow DO Work Phone: GynecologyComment on above:Insurance Authorization (Orilissa)Start: 07-16-2023 End: 93-74-6331vdvdrapsgeCTYCT BILLOWFacility:[facility] Centertart: 06-12-2023 End: 40-20-9156wjqgghypmqZBMTI BILLOWFacility:[facility] Centertart: 06-12-2023 End: 13-19-6119Bckvbwtvau hospital visit by physicianandra [facility] Suki (I-Stat/1.5t) RadiologyComment on above:Pelvic and perineal pain [R10.2]Start: 05-17-2023 End: 28-63-5930Vllulj pelvic examinationMegan Billow DO Work Phone: Obstetrics/GynecologyComment on above:Endometriosis (Primary Dx); Pelvic and perineal painStart: 05-17-2023 End: 65-54-5452Bjipiufgevho consultation with patientMegan Billow DO Work Phone: [facility]ENTERtart: 05-17-2023 End: 76-99-3186kfcapsflrgCXTHOYang Stanleycility:[facility] Start: 39-09-0685Oskrcqcgp encounterMegan Billow DO Work Phone: GynecologyComment on above:Vaginal BleedingStart: 05-01-2023 End: 27-78-5688zuiiyuujvfCLFZNYang Stanleycility:[facility] Start: 05-01-2023 End: 39-49-6868Nvytycp encounter Lisa Downs APRN.CNP Work Phone: GynecologyComment on above:Chronic pelvic pain in female (Primary Dx); Constipation, unspecified constipation type; High-tone pelvic floor dysfunction; Diastasis of rectus abdominis; Dysmenorrhea; Other specified dyspareuniaStart: 66-31-2776mmxskuxnpuHwgkd Kuldip DO Work Phone: Obstetrics/GynecologyComment on above:painfulStart: 01-31-2023 End: 51-77-7359Dyfvvjrvl department patient visitAstrLancaster [facility] Start: 12-30-2022 End: 67-37-4653Dktdgoi [facility]White [facility] Start: 12-05-2022 End: 58-12-8153tqdsefefvqEOLTMultiCare Valley Hospital SHSStart: 12-05-2022 End: 56-16-5122Pycyrj outpatient visit 15 minutesGina [facility] DO Work Phone: [facility] SystemComment on above:Pre- eclampsia, severe, delivered (Primary Dx)Start: 11-28-2022 End: 11-78-6013Dtxrlwhdch and management of inpatientColumb[facility] SHSStart: 11-28-2022 End: 10-83-3464Egjeybgmmm and management of inpatientGleneagle Ryder Work Phone: [facility] H4 POSTPARTUMComment on above:Preeclampsia, severe, third trimester (Primary Dx)Start: 11-28-2022 End: 12-38-4103Isk-admission assessmentFredi DORSEY [facility] Start: 11-27-2022 End: 78-27-9663BF TriageGregrosa DORSEY [facility] Start: 07-14-2022 End: 16-02-6921Wllmhocyl department patient visitKumar Villagomez [facility] Start: 07-14-2022 End: 37-56-3981IN TriageCorey Bryant POP [facility] Start: 04-25-2022 End: 40-10-4597Vksemki encounter procedureCAMERON DIDEMIANY [facility] Start: 04-18-2022 End: 14-72-8810ezgxhaexyaSinntzo Didemiany Other [employer] Other Start: 75-30-2656Ycicoqd encounter procedureCameron DidemianyFPG GastroenterologyStart: 05-58-7619Snbkgv outpatient visit 15 minutes Charlene Rodriguez DO Work Phone: [phone]-IJWRI-Luis [address] Work Phone: Start: 09-29-2021 End: 00-12-3028thryehpqrmDAVDK ROWENA POCOSMercpearl [facility] Centertart: 09-29-2021 End: 26-51-5492pzjpfecqlfNTNFI ROWENA POCOSMercy Moody HospitalStart: 25-06-0313GOXOFUfhgg Billow DO Work Phone: [phone]-DQKTV-Risman [address] Work Phone: Start: 41-99-2219ICOYHRFRUW, Provider: Charlene Rodriguez, Status: Pen, Time: 2:45 PMNicholas Chau MD Work Phone: [phone]-Khteukw-[place] Work Phone: Start: 71-62-6828Stews Oswaldo Chau MD Work Phone: [phone]-NzpycyiSavita Work Phone: Procedures DateProcedureProcedure DetailPerforming ClinicianStart: 90-78-7392UB OB BPP W NON-STRESSKristina Lakhwinder HEAVY ANTIARMOR [employer] IN[employer]ANTRYMAN Work Phone: Start: 96-71-2489Rvfwy dip stick/tablet rgnt non-auto w/o micrscpCorey Kiesha DO Work Phone: Start: 60-05-9591NBG BUNCorey Kiesha DO Work Phone: Start: 69-35-3189KVU URIC ACIDCorey Kiesha DO Work Phone: Start: 61-30-2732SAK ALTCorey Kiesha DO Work Phone: Start: 10-69-9778CUM ASTCorey Kiesha DO Work Phone: Start: 68-33-2643NRP CREATININECorey Kiesha DO Work Phone: Start: 61-78-7357NHK URINE T PROTEIN CREAT RATIOCorey Kiesha DO Work Phone: Start: 64-42-9909Baqrp dip stick/tablet rgnt non-auto w/o micrscpSheelaa Lakhwinder HEAVY ANTIARMOR [employer] IN[employer]TRY[employer] Work Phone: Start: 43-54-1597RSI TOTAL PROTEIN 24 HOUR URINE Generic External Data ProviderStart: 73-22-6431SC OB BPP W NON-STRESS Marbella Keane HEAVY ANTIARMOR [employer] IN[employer]TRYMAN Work Phone: Start: 82-24-5011HCP URINE T PROTEIN CREAT RATIO Generic External Data ProviderStart: 56-00-7958FKO CBC WITH AUTO DIFFGeneric External Data ProviderStart: 21-55-4893Ffood dip stick/tablet rgnt non-auto w/o micrscpKristina Lakhwinder HEAVY ANTIARMOR [employer] IN[employer]TRY[employer] Work Phone: Start: 19-75-5749Rwgoztgm identified in Urine by CultureGeneric External Data ProviderStart: 90-88-9977Fqliaeo quantitative blood xcpt reagent stripNot In System Ref ProvStart: 98-23-3850IQXOHP HOUR GLUCOSE TOLERANCE 100 GM LOADNot In System Ref ProvStart: 44-91-3567Opmnj dip stick/tablet rgnt non-auto w/o micrscpCorey Kiesha DO Work Phone: Start: 70-43-3290BME 1H POST 50G LOADNot In System Ref ProvStart: 88-53-1154AGS, SERUM, OPEN SPINA BIFIDACorey Kiesha DO Work Phone: Start: 41-39-3084Jjfob dip stick/tablet rgnt non-auto w/o micrscpCorey Kiesha DO Work Phone: Start: 12-30-2806LLKEBXJDH VAGINITIS (HTRX)Nathan Kiesha DO Work Phone: Start: 03-01-7017Syzwa dip stick/tablet rgnt non-auto w/o micrscpCorey Kiesha DO Work Phone: Start: 35-98-7826Gwgew dip stick/tablet rgnt non-auto w/o micrscpCorey Kiesha DO Work Phone: Start: 43-35-9409Nnbylqyz screenQuynh Monroy MD Work Phone: Start: 27-28-1229Laye scrn 1+ class nonchromoNot In System Ref ProvStart: 18-13-7514Huafqrbpvz glycosylated q9aKymkb R Kiesha DO Work Phone: Start: 64-45-1468Uxklvylaj c antibodyNot In System Ref ProvStart: 83-86-4287EFE 1&2 AB/AG SCREEN (P24 AG)Not In System Ref ProvStart: 76-25-8517Yned ia hepatitis b surface antigenNot In System Ref ProvStart: 09-61-8667BDZQ AND SCREENNot In System Ref ProvStart: 96-21-3335QXS TESTCorey [facility] DO Work Phone: Start: 49-31-2250Vjpcu dip stick/tablet rgnt non-auto w/o micrscpCorey [facility] DO Work Phone: Start: 26-85-8244WI OB TRANSVAGINALCorey [facility] DO Work Phone: Start: 68-98-4702VKN,APTIMA HPV,AGE GDLNCorey KieshaAppcore Work Phone: Start: 17-13-4470Zmivfvalujp observation [Identifier] in Cervix by Cyto stainCorey Kiesha DO Work Phone: Start: 38-95-1314Mkcl cerv/vag auto thin layer prep mnl screenCorey Kiesha DO Work Phone: Start: 34-69-2407Peo pelvis w/o & w/contrast material Charlene Billow DO Work Phone: Start: 08-29-4407Fpmcf count platelet automatedMichael O'Cormier HOT ROLL INSPECTOR - SHEEP HERDER Work Phone: Start: 09-78-6635Baklf count platelet automatedCassie Constantino MD Work Phone: Start: 48-87-9043Ewcdh streptococcus group b amplified probe tqCassie Constantino MD Work Phone: Start: 28-13-1165CYX and Rh group [Type] in Blood by Confirmatory methodCassie Constantino MD Work Phone: Start: 24-87-9134Tukww typing serologic aboRevonne Constantino MD Work Phone: Start: 41-52-4473Ppopxvvrkndyx metabolic panelCassie Constantino MD Work Phone: Start: 08-10-3435Xpgdanpd hiv-1&hiv-2 single result Megadyne [phone]: 76-88-7810Azvq ia hepatitis b surface antigenMegadyne [phone]: 87-75-7339WnxyardccbVSVXXMR DITTY Start: 08-30-2020 End: 22-47-3511Cxualuov screenComment on above:Performed By: #### T+S #### [facility] [address] [place], [place] [address]Cbmof Comment: TEST TYPE + SCREEN WAS CANCELLED, 08/30/2020 13:37 JOP.Performed By: #### T+S #### [facility] [address] [place], [place] [address]Hmudb: 54-73-5048DXSUV SHOULDER OPEN DISTAL CLAVICLE EXCISION 1[facility] Comment on above:RIGHT SHOULDER OPEN DISTAL CLAVICLE EXCISIONRIGHT SHOULDER OPEN DISTAL CLAVICLE EXCISIONAppendectomyCAMERON infirst Healthcare betamethasone (substance)Fredi DORSEY comment on above:Dose #1: 11/27/22ColonoscopyCAMERON infirst Healthcare Endoscope, device (physical object)[place] LaparoscopyNicholas Chau MD Work Phone: Plan of Treatment DateCare ActivityDetailAuthorStart: 64-78-9708Pmuxsy Vaccines (1 of 2)Zoster Vaccines (1 of 2)[facility] HealthStart: 01-88-2715Wmjsvvwnn for malignant neoplasm of cervixNOMS HealthcareStart: 43-35-7095Oaljkkzhv for malignant neoplasm of cervixPap SmearNOMS HealthcareStart: 72-34-4011Fsbxy BMI ScreeningAdult BMI ScreeningProSelect Medical Specialty Hospital [facility] Columbusca Health SystemStart: 75-75-8450Qfpctjj ScreeningTobacco ScreeningProSelect Medical [facility] SystemStart: 32-33-2097Vbhri BMI ScreeningAdult BMI ScreeningProSelect Medical Specialty [facility] Columbusca [facility] SystemStart: 94-25-7453Aiimx BMI ScreeningAdult BMI ScreeningProSelect Medical [facility] SystemStart: 10-08-2025 End: 42-33-0998Jrntkdd encounter / 8:00 AM EST Appointment [facility] [place] [address] [place] [address] [phone] Medicine [place]Start: 10-05-2025 End: 38-67-5464Ughtakl encounter wvcyaddkc00/10/2025 3:00 PM EST Office Visit Maternal- Medicine at [facility] [address] [place] [phone] Kayleigh Meza PA-C [address] [address] [facility] 10-05-2025 End: 63-93-2786Cdftpghwoljr consultation with spxpkyo9910/05/2025 3:00 PM EST Telemedicine Maternal- Medicine at [facility] [address] [place] [phone] Kayleigh Meza PA-C [address] [address] [facility] 09-30-2025 End: 35-35-1888Qmguvmv encounter lygzdmgok14/05/2025 3:00 PM EST Routine NOMShalonda MOODY [address] [place], [id number] Nathan Pop DO [address] [place] [address] LANETTE FLOREStart: 09-16-2025 End: 21-88-1087MR biophysical profile w non stress testUS biophysical profile w non stress test Imaging Routine Gestational diabetes mellitus (GDM),antepartum, gestational diabetes method of control unspecified ([facility]) Expected: 09/16/2025, Expires: 09/16/2026NOMS HealthcareComment on above:Expected: 09/16/2025, Expires: 09/16/2026Start: 09-15-2025 End: 94-04-7358Dbriwvg encounter oeaqblqym35/21/2025 2:50 PM EDT Routine NOMShalonda YOUNGN [address] [place], [id number] Zenobia Gutierrez PA [address] [place] [address] NOMS Ousmane OBGYNStart: 09-10-2025 End: 39-12-7217Hnovshxkhdtf consultation with dwxcqev2909/10/2025 11:00 AM EDT Telemedicine [facility] [place] [address] [phone] Quynh Monroy MD [address], [address] [place] [address] [facility] Medicine [place]: 09-10-2025 End: 11-28-5255Dapfbes encounter hliqlsjzi06/16/2025 9:45 AM EDT Appointment [facility] [place] [address] [phone] [phone] Medicine [place] JosephStart: 09-07-2025 End: 46-44-6416Bsosbnf encounter procedureNOMS BCP OBStart: 09-04-2025 End: 65-84-4045Kbpclth encounter jkdgsoobr45/10/2025 3:00 PM EDT Office Visit Maternal- Medicine at [facility] [address] [place] [phone] Mine Denise MD [address], [address] [place] [address] [facility] 09-03-2025 End: 63-28-1475Nqtoyqp encounter procedureNOMS Ousmane OBGYNComment on above: ArrivedStart: 08-27-2025 End: 61-40-0026Yrfgpce encounter /02/2025 3:20 PM EDT Routine NOMShalonda Funesue OBGYN [address] [place], [id number] Marbella Keane, HEAVY ANTIARMOR [employer] IN[employer]TRYMAN [address] [place] [address] NOMShalonda [place] OBGYNStart: 08-27-2025 End: 08-11-5627Jlucvqd aminotransferase [Enzymatic activity/volume] in Serum or PlasmaALT Lab Routine induced hypertension, antepartum ([facility]HS-HCC) Expected: 08/27/2025 (Approximate), Expires: 08/27/2026NODE HealthcareComment on above:Expected: 08/27/2025 (Approximate), Expires: 08/27/2026Start: 08-27-2025 End: 20-40-8322Wxohemifx aminotransferase [Enzymatic activity/volume] in Serum or PlasmaAST Lab Routine induced hypertension, antepartum (HHS-HCC) Expected: 08/27/2025 (Approximate), Expires: 08/27/2026NODE HealthcareComment on above:Expected: 08/27/2025 (Approximate), Expires: 08/27/2026Start: 08-27-2025 End: 76-93-6807SRV W Auto Differential panel - BloodCBC and differential Lab Routine induced hypertension, antepartum (HHS-HCC) Expected: 12/2024 (Approximate), Expires: 08/27/2026NODE HealthcareComment on above: Expected: 08/27/2025 (Approximate), Expires: 08/27/2026Start: 08-27-2025 End: 56-18-6136Ivdroeuugi [Mass/volume] in Serum or PlasmaCreatinine Lab Routine induced hypertension, antepartum (HHS-HCC) Expected: 08/27/2025 (Ap proximate), Expires: 08/27/2026[facility] Work Phone: comment on above:Expected: 08/27/2025 (Approximate), Expires: 08/27/2026Start: 08-27-2025 End: 75-46-5402Wsvtknk dehydrogenase [Enzymatic activity/volume] in Serum or Plasma by Lactate to pyruvate reactionLactate dehydrogenase Lab Routine induced hypertension, antepartum ([facility]) Expected: 08/27/2025, Expires: 08/27/2026[facility] HealthcareComment on above:Expected: 08/27/2025, Expires: 08/27/2026Start: 08-27-2025 End: 49-54-9744Onsiazj, urine, 24 hourProtein, urine, 24 hour Lab Routine induced hypertension, antepartum (HHS-HCC) Expected: 08/27/2025 (Approximate), Expires: 08/27/2026[facility] HealthcareComment on above:Expected: 08/27/2025 (Approximate), Expires: 08/27/2026Start: 08-27-2025 End: 75-31-6815Qn and pttPt and ptt Lab Routine induced hypertension, antepartum ([facility]) Expected: 08/27/2025, Expires: 08/27/2026[facility] Healthcare Comment on above:Expected: 08/27/2025, Expires: 08/27/2026Start: 08-27-2025 End: 49-08-3459Qhjap [Mass/volume] in Serum or PlasmaUric acid Lab Routine induced hypertension, antepartum ([facility]) Expected: 08/27/2025 (Bouchra roximate), Expires: 08/27/2026[facility] HealthcareComment on above:Expected: 08/27/2025 (Approximate), Expires: 08/27/2026Start: 08-27-2025 End: 02-15-9478Bafw nitrogen [Mass/volume] in Serum or PlasmaBUN Lab Routine induced hypertension, antepartum ([facility]) Expected: 08/27/2025, Expires:08/27/2026[facility] HealthcareComment on above:Expected: 08/27/2025, Expires: 08/27/2026Start: 08-27-2025 End: 79-45-9565CJ biophysical profile w non stress testUS biophysical profile w non stress test Imaging Routine induced hypertension, antepartum ([facility]HS-HCC) Gestational diabetes mellitus (GDM) in second trimester, gestational diabetes method of control unspecified ([facility]-HCC) Expected: 08/27/2025 (Approximate), Expires: 02/25/2026NODE HealthcareComment on above:Expected: 08/27/2025 (Approximate), Expires: 02/25/2026Start: 08-24-2025 End: 31-97-5031dvogxhzamx82/29/2025 1:30 PM EDT Support Visit Maternal- Medicine at [facility] [address] [place] [address] Teena Sarmiento RN [address] [place] [address] Kerline Augustin, RAYNA [address], [address] [facility] [place] [address] [facility]: 08-24-2025 End: 83-90-8361Jmmukcx encounter tndmagcrx56/29/2025 11:00 AM EDT Office Visit [facility] BCP OB [address] [place] [phone] Nathan Pop, DO [address] [place] [address] NOMS BCP OBStart: 08-12-2025 End: 28-13-2776Vxlhwrq encounter gxondgizf99/17/2025 2:40 PM EDT Routine NOMS Ousmane IYERGYN [address] [place], [id number] Nathan Pop, DO [address] [place] [address] NOMS Ousmane OBGYNStart: 08-12-2025 End: 86-49-8653Bwynraeswsn of glucose 3 hours after glucose challenge for glucose tolerance testGlucose tolerance, 3 hours Lab Routine Elevated glucose tolerance test Expected: 08/12/2025 (Approximate), Expires: 08/12/2026[facility] Work Phone: comment on above:Expected: 08/12/2025 (Approximate), Expires: 08/12/2026Start: 08-12-2025 End: 13-36-8352Ohfensysmqhz / ancillary services ylxgzxbmtv79/17/2025 2:00 PM EDT Ancillary Procedure [facility]e OBGYN [address] [place] [address] NOMS Ousmane OBGYNStart: 07-31-2025 End: 75-60-5033LLP W Auto Differential panel - BloodCBC and differential Lab Routine Hypertension, unspecified type Wellness examination Expected: 07/31/2025 (Approximate), Expires: 08/29/2025[facility] Work Phone: Comment on above:Expected: 07/31/2025 (Approximate), Expires: 08/29/2025Start: 07-31-2025 End: 38-56-7886Mpghzgaspjvty metabolic 2000 panel - Serum or PlasmaComprehensive metabolic panel Lab Routine Hypertension, unspecified type Wellness examination Expected: 07/31/2025 (Approximate), Expires: 08/29/2025NODE HealthcareComment on above:Expected: 07/31/2025 (Approximate), Expires: 08/29/2025Start: 07-31-2025 End: 66-14-4365Oevew 1996 panel - Serum or PlasmaLipid panel Lab Routine Wellness examination Lipid screening Expected: 07/31/2025 (Approximate), Exp ires: 08/29/2025[facility] HealthcareComment on above:Expected: 07/31/2025 (Approximate), Expires: 08/29/2025Start: 07-30-2025 End: 07-62-1993Klsullv encounter ituqncyjo55/04/2025 3:40 PM EDT Office Visit [facility] [address] [place] [address] Nay Beltran, DO [address] [place] [address] [facility] 230Comment on above:ArrivedStart: 32-65-3149Punlfllpn vaccinationUNIVERSITY OF UTAH HOSP[facility] HealthcareStart: 07-15-2025 End: 33-03-1450Avesxji encounter nzosnwazp90/20/2025 3:30 PM EDT Routine [facility] [address] [facility] [place], [id number] Nathan Pop DO [address] [place] [address] [facility]Start: 07-15-2025 End: 79-40-0146Oixnythgtkez / ancillary services ceqodkoatl17/20/2025 2:30 PM EDT Ancillary Procedure [facility] [address] [place] [id number] [facility]: 07-15-2025 End: 23-37-8283XVD panel - Blood by Automated countCBC Lab Routine Diabetes mellitus screening Expected: 07/15/2025 (Approximate), Expires: 07/15/2026[facility] Healthcare Work Phone: comment on above:Expected: 07/15/2025 (Approximate), Expires: 07/15/2026Start: 07-15-2025 End: 49-48-4729Ordmexwgxdz of glucose 1 hour after glucose challenge for glucose tolerance testGlucose tolerance, 1 hour Lab Routine Diabetes mellitus screening Expected: 07/15/2025 (Approximate), Expires: 07/15/2026[facility] HealthcareComment on above:Expected: 07/15/2025 (Approximate), Expires: 07/15/2026Start: 06-22-2025 End: 57-63-0642Ftejzfm encounter qumocdcab41/28/2025 2:10 PM EDT Routine [facility] [address], [id number] Nathan Pop, DO [address] [place] [address] Rafael [place] OBGYNComment on above:ArrivedStart: 06-22-2025 End: 83-72-7481Uxvvx fetoprotein, maternalAlpha fetoprotein, maternal Lab Routine Second trimester ([facility]) 17 weeks gestation of ([facility]) Expected: 06/22/2025 (Approximate), Expires: 12/23/2025[facility] Comment on above:Expected: 06/22/2025 (Approximate), Expires: 12/23/2025Start: 06-22-2025 End: 40-34-6358II for pregnancyUS OB 14+ weeks anatomy scan Imaging Routine Screening, , for anatomic survey ([facility]) Expected: 06/22/2025, Expires: 09/22/2025[facility] Work Phone: comment on above:Expected: 06/22/2025, Expires: 09/22/2025Start: 05-25-2025 End: 70-15-1095Dpvokmv encounter mkvqijpzt02/30/2025 2:40 PM EDT Routine [facility] [address] [place] [address] Nathan Pop, [address] [place] [address] [facility] BCP OBStart: 05-01-2025 End: 23-83-4353GEO/RhABO/Rh Lab Routine Missed menses , unspecified gestational age Expected: 05/01/2025 (Approximate), Expires: 05/01/2026[facility] HealthcareComment on above:Expected: 05/01/2025 (Approximate), Expires: 05/01/2026Start: 05-01-2025 End: 68-21-4670Sjqyq type and Indirect antibody screen panel - BloodType and screen Lab Routine Missed menses , unspecified gestational age Expected: 05/01/2025 (Approximate), Expires: 05/01/2026[facility] Work Phone: comment on above:Expected: 05/01/2025 (Approximate), Expires: 05/01/2026Start: 05-01-2025 End: 25-39-7082Xelpm of abuse panel - Urine by Screen methodRapid drug screen, urine Lab Routine , unspecified gestational age Encounter for supervision of normal first in first trimester Expected: 05/01/2025 (Approximate), Expires: 05/01/2026[facility] HealthcareComment on above:Expected: 05/01/2025 (Approximate), Expires: 05/01/2026Start: 01-19-2025 End: 17-37-0495Ypdsdiu encounter procedureNOMS BCP OBComment on above:Arrived Start: 01-19-2025 End: 18-29-1725OxzdodvedxytDztqiloebafi Lab Routine Pain in female genitalia on intercourse Endometriosis Expected: 01/19/2025(Approximate), Expires: 01/19/2026 [facility] Work Phone: Comment on above:Expected: 01/19/2025 (Approximate), Expires: 01/19/2026Start: 08-18-2024 End: 45-16-3820Qtszrgk encounter procedureNOMS BCP OBComment on above:Arrived Start: 70-92-5980Vvtgfuyxm vaccinationSelect [facility] Specialty [facility] Southtart: 07-22-2024 End: 78-38-4664II for pregnancyUS PELVIS-TRANSVAG IF INDICATED Imaging Routine Dysmenorrhea, unspecified Expected: 07/22/2024 (Approximate), Expires: 07/22/2025[facility] Work Phone: comment on above:Expected: 07/22/2024 (Approximate), Expires: 07/22/2025Start: 06-23-2024 End: 49-61-7074Ejrqjme encounter etkdahzsn93/29/2024 10:30 AM EDT Office Visit Obstetrics/Gynecology [address] [address] Billow, Charlene, DO [address] [place] [address] 2 WEEK POST OPObstetrics/GynecologyComment on above:2 WEEK POST OPStart: 05-27-2024 End: 57-93-7633Hmlemioeg to same day surgery rdpoih6305/27/2024 7:30 AM EDT - 05/27/2024 9:30 AM EDT Surgery [facility] Surgery [address] [place] [address] Charlene Rodriguez, DO [address] [place] [address] LAPAROSCOPY FULGURATION OR EXCISION OF LESIONS OF THE OVARY PELVIC VISCERA OR PERITONEAL SURFACE BY ANY METHODCincinnati Children'S Hospital [facility] SurgeryComment on above:LAPAROSCOPY FULGURATION OR EXCISION OF LESIONS OF THE OVARY PELVIC VISCERA OR PERITONEAL SURFACE BYANY METHODStart: 05-27-2024 End: 34-89-3786Irli fulg/exc ovary viscera/peritoneal surfaceLAPAROSCOPY FULGURATION OR EXCISION OF LESIONS OF THE OVARY PELVIC VISCERA OR PERITONEAL SURFACE BYANY METHOD Endometriosis 05/27/2024 7:30 AM EDTME ORStart: 05-27-2024 Subsequent hospital visit by sgemmwyye79/02/2024 7:30 AM EDT Hospital Encounter [facility] Surgery [address] [place] [address] Charlene Rodriguez, DO [address] [place] [address] [phone] (F ax) Endometriosis [N80.9][facility] SurgeryComment on above:Endometriosis [N80.9]Start: 15-01-4542Oqtwnytqi vaccinationInfluenza Vaccine (#1)[facility] HealthcareComment on above:Postponed from 07/27/2023 (Patient Refused)Start: 05-20-2024 End: 04-27-5843pbpavqccuk58/25/2024 10:00 AM EDT [facility] SALES SERVICE REPRESENTATIVE [facility] [address] [address] [place], [employer]io Nurse [address] [address] DIALLO LEE UROL [facility]AUCHE[facility] MOBComment on above:RN TEACHINGStart: 04-22-2024 End: 93-44-4005Rgxkruo encounter jjrbdbbuo57/28/2024 9:00 AM EDT Office Visit [facility] [address] [place] [address] Cruz Rodríguez MD [address] [place] [address] [facility] FMStart: 28-01-2421YEeZ,Tdap and Td Vaccines (7 - Td or Tdap)DTaP,Tdap and Td Vaccines (7 - Td or Tdap)[facility] SystemStart: 75-95-6129BViU/Tdap/Td Vaccines (7 - Td or Tdap)DTaP/Tdap/Td Vaccines (7 - Td or Tdap)[facility] CenterStart: 22-35-3816Cdxht microalbumin profileDTaP,Tdap,Td Vaccine (7 - Td or Tdap)[facility]: 01-30-2024 End: 68-05-2739Zdtxpjj encounter ysazqixbi93/06/2024 11:10 AM EST Consult [facility] OB [address] [place] [address] Nathan Pop, DO [address] [place], [place] [id number] [facility] BCP OBStart: 01-15-2024 End: 14-67-6616Obqiwayqinaq / ancillary services ctysnmmjdx34/20/2024 8:00 AM EST Ancillary Procedure [facility] OB [address] [place] [address] [facility] BCP OBStart: 01-10-2024 End: 72-90-4553PW for pregnancyUS PELVIS-TRANSVAG IF INDICATED Imaging Routine Pelvic pain in female Expected: 01/10/2024 (Approximate), Expires: 01/10/2025 [facility] Work Phone: comment on above:Expected: 01/10/2024 (Approximate), Expires: 01/10/2025Start: 61-51-3101Rlmlyvxziy Health ScreeningBehavioral Health ScreeningSelect Medical Specialty [facility] Southtart: 07-88-7267Gftpehrzcl AssessmentDepression AssessmentSelect Medical Specialty Hospital [facility] Southtart: 80-18-7001Csnzm-19 Vaccine ( season) Covid-19 Vaccine ( season)[facility]: 00-58-8476Olzwrfwbb vaccinationSelect Medical Specialty [facility] Southtart: 60-63-5089CAUIFCKZED ASSESSMENTDEPRESSION ASSESSMENTSelect Medical Specialty [facility] Southtart: 35-08-7868Xduzjkkse vaccinationInfluenza Vaccine (#1)[facility] CenterStart: 54-75-5272YKR, Provider: Charlene Rodriguez, Status: Pen, Time: 1:30 PMFUV, Provider: Charlene Rodriguez, Status: Pen, Time: 1:30 PM EG-UHCMD-Dizali [address] Work Phone: Start: 46-48-7310WIY, Provider: Charlene Rodriguez, Status: Pen, Time: 11:15 AMFUV, Provider: Charlene Rodriguez, Status: Pen, Time: 11:15 AM KH-MSNIS-Iyh[address] Work Phone: Start: 88-00-0504VHO TESTINGPAP TESTINGSelect Medical Specialty Hospital [facility] Southtart: 97-58-1010Vhrfvahmq for malignant neoplasm of cervixSelect Medical Specialty Hospital - [facility] Southtart: 99-18-4073XGxM,Tdap and Td Vaccines (1 - Tdap)DTaP,Tdap and Td Vaccines (1 - Tdap)[facility] Hospitalt[facility]: 69-51-1043DVrE/Tdap/Td Vaccines (1 - Tdap)DTaP/Tdap/Td Vaccines (1 - Tdap)[facility] CenterStart: 81-41-2460Qlzxq microalbumin profileSelect Medical Specialty Hospital - [facility] Southtart: 99-21-7974Isjwr BMI Follow Up Plan Adult BMI Follow Up PlanECU Health Roanoke-Chowan Hospitaltart: 96-53-1299Sicwf BMI ScreeningAdult BMI ScreeningProKettering Health Daytontart: 77-64-3228KHFUHH PCP TEAM CHRONIC DISEASE VISITANNUAL PCP TEAM CHRONIC DISEASE VISITBarberton [facility] Start: 03-72-6023UD CONTROLLED (<130/80)BP CONTROLLED (<130/80)[facility] Start: 69-75-8898FQAZYZCYM C SCREENINGHEPATITIS C SCREENINGBarberton Citizens Hospital Start: 00-26-6276Wivrbkngz C screeningHepatitis C ScreeningBarberton Citizens Hospital Start: 38-12-1545QHC SCREENINGHIV SCREENINGSelect [facility] Southtart: 20-20-5087JVS screeningHIV ScreeningSelect Medical Specialty Hospital - [facility] Southtart: 61-94-3461Xoxfbvjubd Screening Depression ScreeningECU Health Roanoke-Chowan Hospitaltart: 62-94-9080Wezbecd Screening Tobacco ScreeningECU Health Roanoke-Chowan Hospitaltart: 10-05-1769Vagchbifj vaccination Varicella Vaccines (1 of 2 - 2-dose childhood series)[facility] CenterStart: 78-13-6856FTR Vaccines (1 of 1 - Standard series)MMR Vaccines (1 of 1 - Standard series)[facility] CenterStart: 90-55-9418Txaagiyky vaccinationVaricella Vaccines (1 of 2 - 2-dose childhood series)[facility]: 68-70-2343CSTDQ-19 VACCINE (#1)COVID-19 VACCINE (#1)[facility]: 07-32-1140VZPSZDYSB B (1 of 3 - 3-dose series)HEPATITIS B (1 of 3 - 3-dose series)[facility]: 46-48-5577Nfbofjzup B Vaccine (1 of 3 - 3-dose series)Hepatitis B Vaccine (1 of 3 - 3-dose series)[facility]: 62-18-3041Iovxuijzj B Vaccines (1 of 3 - 3-dose series)Hepatitis B Vaccines (1 of 3 - 3-dose series)[facility] CenterStart: 95-11-6558Xlwvh panelLipid PanelSumma HealthBacteria identified in Urine by CultureUrine culture Microbiology Routine Missed menses Ordered: 05/01/2025[facility] HealthcareComment on above:Ordered: 05/01/2025BC W Auto Differential panel - BloodCBC and differential Lab Routine Missed menses , unspecified gestational age Ordered: 05/01/2025[facility] HealthcareComment on above:Ordered: 05/01/2025ytology Cervical or vaginal smear or scraping studyPap Smear Pathology and Cytology Routine Well woman exam with routine gynecological exam Ordered: 08/18/2024[facility] Work Phone: comment on above:Ordered: 08/18/2024Hemoglobin A1c/Hemoglobin.total in BloodHemoglobin A1c Lab Routine Missed menses , unspecified gestational age Ordered: 05/01/2025[facility] HealthcareComment on above: Ordered: 05/01/2025Hepatitis B virus surface Ag [Presence] in Serum or Plasma by ImmunoassayHepatitis B surface antigen Lab Routine Missed menses , unspecified gestational age Ordered: 05/01/2025[facility] HealthcareComment on above: Ordered: 05/01/2025Hepatitis C virus Ab [Presence] in Serum or Plasma by ImmunoassayHepatitis C antibody Lab Routine Missed menses , unspecified gestational age Ordered: 05/01/2025[facility] HealthcareComment on above:Ordered: 05/01/2025HIV-1/HIV-2 antigen/antibody combination immunoassayHIV-1 and HIV-2 antibodies Lab Routine Missed menses , unspecified gestational age Ordered: 05/01/2025[facility] HealthcareComment on above:Ordered: 05/01/2025 End: 28-56-5754Gfd pelvis w/o & w/contrast materialMRI FEMALE PELVIS WO/W IVCON Radiology Routine Pelvic and perineal pain 1 Occurrences starting 05/17/2023 until [facility] Work Phone: Comment on above:1 Occurrences starting 05/17/2023 until 4Reagin Ab [Presence] in Serum by RPRRPR Lab Routine Missed menses , unspecified gestational age Ordered: 05/01/2025[facility] Comment on above:Ordered: 05/01/2025Rubella antibody, IgGRubella antibody, IgG Lab Routine Missed menses , unspecified gestational age Ordered: 04/2025[facility] HealthcareComment on above:Ordered: 05/01/2025 End: 46-30-2397IjinbhUniversity Health [facility]wood [facility] Center Work Phone: Comment on above:Once (Lab) for 1 Occurrences starting 11/30/2022 until 11/30/2022, 1 completed End: 55-20-6928PV for pregnancyUS OB follow up transabdominal approach Imaging Routine Gestational diabetes mellitus (GDM), antepartum, gestational diabetes method of control unspecified ([facility]) every 4 weeks for 2 Occurrences starting 09/16/2025 until 12/17/2025[facility] Work Phone: comment on above:every 4 weeks for 2 Occurrences [facility] 09/16/2025 [facility] Immunizations Immunization DateImmunizationNotesCare SbcxyvmsZumqumqw39-94-4360dowzevmkn A vaccine, adult dosageCorey Kiesha DO Work Phone: [facility] CenterCxygmtgmdt56-92-6787vduqk papilloma virus vaccine, quadrivalentCorey Kiesha DO Work Phone: [facility] CenterIxgyewrhrz44-74-0868wcxkfyaow, seasonal, injectable, preservative freeCorey Kiesha DO Work Phone: [facility] CenterHnlrviagwh72-56-6878oghxkmedt virus vaccine, unspecified formulationGina Moschella DO Work Phone: [facility] Cancer CenterVzhkst25-95-5035uliko papilloma virus vaccine, quadrivalentCorey Kiesha DO Work Phone: [facility] CenterWdddyfxxqf38-14-4712uwpmnnhtm A vaccine, adult dosageCorey Kiesha DO Work Phone: [facility] CenterZhkgytwdas51-21-0940qhkbv papilloma virus vaccine, quadrivalentCorey Kiesha DO Work Phone: [facility] CenterAxanemwqyf43-22-4856dqvaguv toxoid, reduced diphtheria toxoid, and acellular pertussis vaccine, adsorbedCorey Kiesha DO Work Phone: [facility] CenterEsosrxynyg88-92-7050gfatfziokiqoc polysaccharide (groups A, C, Y and W-135) diphtheria toxoid conjugate vaccine (MCV4P)Nathan Kiesha DO Work Phone: [facility] CenterCbjajutcyr40-26-0559lkuglpmksw, tetanus toxoids and acellular pertussis vaccine, unspecified formulationCorey Kiesha DO Work Phone: [phone] CenterFwcqwhtvmu63-73-6853rghslcf, mumps and rubella virus vaccineCorey Kiesha DO Work Phone: [phone] CenterKirbzkypdl19-71-8889bzbypameek vaccine, inactivatedCorey Kiesha DO Work Phone: [phone] CenterMrmbuquksd14-77-2500drndtakpcp, tetanus toxoids and acellular pertussis vaccine, unspecified formulationCorey Kiesha DO Work Phone: [phone] [place], [place] [address]Vbozwwvuio93-94-8644HCF-Qrymaurdhse influenzae type b conjugate vaccineCorey Kiesha DO Work Phone: [phone] CenterSqqcnubmsf40-48-2980peqhgrcxk B vaccine, pediatric or pediatric/adolescent dosageCorey Kiesha DO Work Phone: [phone] CenterFzetfcqsca35-50-6929nuvckas, mumps and rubella virus vaccineCorey Kiesha DO Work Phone: [phone] [place], [place] [address]Qpkasratec79-90-0291chrdiahaa poliovirus vaccine, live, oralCorey Kiesha DO Work Phone: [phone] CenterKfhgmfvyuk19-56-5155JOZ-Wfyjhjmyfdy influenzae type b conjugate vaccineCorey Kiesha DO Work Phone: [phone] [place], [place] [address]Fowrwmuyem06-86-7639fytwcnaca B vaccine, pediatric or pediatric/adolescent dosageCorey Kiesha DO Work Phone: [phone] CenterLsszkuyzqs70-40-2908txpeluewo poliovirus vaccine, live, oralCorey Kiesha DO Work Phone: [phone] [place], [place] [address]Guwvonttfu48-53-8900GNM-Gtelwigpomj influenzae type b conjugate vaccineCorey Kiesha DO Work Phone: [phone] [place], [place] [address]Pxgomzynbp84-43-7826jtbnvnezj B vaccine, pediatric or pediatric/adolescent dosageCorey Kiesha DO Work Phone: [phone] [place], [place] [address]Nbuympdcnb18-11-1933cdebhvcsx poliovirus vaccine, live, oralCorey Kiesha DO Work Phone: [facility] CenterNEGATED: Highlighted row has not occurred!69-33-6130ntecqxo, mumps and rubella virus vaccineKatherine Ryder DO Work Phone: [facility] HealthComment on above:Deferred: Other - Rubella ImmuneNEGATED: Highlighted row has not occurred!53-98-2073vduljed toxoid, reduced diphtheria toxoid, and acellular pertussis vaccine, adsorbedRitu Ryder DO Work Phone: [facility] HealthComment on above:Deferred: No longer needed - Refused Tdap vaccine. Payers DatePayer CategoryPayerPolicy [id number] Managed Care - [employer] Member Subscriber Plan / Payer (Effective 2024- Present) Name: Driss Gama Relation to Subscriber: Self Name: Driss Gama Payer ID: Not on file Type: Not on file Ad dress: [address] [place] [id number] Health [facility] [employer] Member Subscriber Plan / Payer (Effective 2024-Present) Name: Driss Gama Relation to Subscriber: Self Name: Driss Gama Payer ID: Not on file Type: Not on file Address: [address] [place] [id number] [id number] O [facility] MEDICAID [id number] [id number] [id number]UAF773R[id number] [id number] Health [id number] 2..1.976006.3.579.2.174 [id number] 2..1.176543.3.57[id number] 2..1.256040.3.57[id number] 2..1.278634.3.579.2.43875-67-0083Ehekecv80800540 2..1.029253.3.579.2.78968-33-4195Ccchasf12792276 2..1.940868.3.57[id number] 2.0.1.768171.3.57[id number] 2..1.513818.3.579.2.53234-18-1270Uszkqqt333973220 2.840.1.880456.3.579.2.[id number] 2.840.1.352632.3.579.2.[id number] 2.840.1.077405.3.57[id number] 2.0.1.533100.3.579.2.060933-40-1688Klnaagy05074719 2..1.818163.3.57[id number] 2..1.780461.3.579.2.474071-98-5045Qlemxgx71485137 2..1.836576.3.579.2.502744-36-5239Uhuakuf79724467 2..1.298168.3.579.2.508860-44-6364Dzdyrqn99158438 2..1.943964.3.579.2.184734-38-8485Itusuyu78255411 2..1.763558.3.579.2.437158-06-5941Auywvnt91497580 2..1.243409.3.579.2.865730-58-2445Yyrebyz98570189 2..1.331248.3.579.2.100641-65-7831Cneznuo47998527 2..1.613319.3.579.2.323727-24-0016Wpybcir76567819 2.840.1.217954.3.579.2.623224-53-6231Wbuovjm46539241 2.0.1.014571.3.579.2.990472-93-6121Gsuawqi8653500 2..840.1.717725.3.579.2.112154-09-7031Snjegre8671903 2.840.1.759476.3.579.2.3954Lgqhvry66481990 2.840.1.927519.3.579.2.531 Social History DateTypeDetailFacilityStart: 01-06-2021 End: 65-85-0291Ffjygf uses seat beltAlways uses seat beltNODE HealthcareStart: 12-10-2018 End: 47-25-6664Yyvkgmj smoking statusNever smoked tobacco (finding)[facility]: 26-72-4746Wqifrwv smoking statusNeverLicking Memorial Hospitaltart: 01-06-2021 End: 04-79-6426Skj Assigned At Critical access hospital [employer] Other ToPremier Health Miami Valley Hospital SouthComment on above: denies.Tobacco smoking statusLicking Memorial Hospitaltart: 12-10-2018 End: 52-36-4460Yaqfohy use and exposureSmokeless tobacco non-userSelect Medical Specialty Hospital [facility] Southtart: 04-11-2023 End: 45-25-7871Zezrqmk intakeCurrent drinker of alcohol (finding)[facility]: 18-82-8878Mxooclp Commentmaybe a few drinks a monthBarberton Citizens Hospital Start: 55-74-6777Kfo Assigned At [facility] CharlotteNot on [facility] HealthStart: 01-10-2024 End: 69-65-0883Ynruqre intakeLifetime non-drinker (finding)[facility] CenterWithin the last year, have you been afraid [...] got money to buy more.Never trueNOMS HealthcareStart: 58-83-0488Zhdjneclc37YUHI HealthcareStart: 16-94-9759Sytwojo Commentcaffeine: 1-2 cups per day, coffee and popNODE HealthcareStart: 98-62-0026Jhfqiqi SDOH IPV Cfhk2Fjqyn HealthStart: 43-49-8407Hdqvkbx SDOH Housing Places Xrxut0Bfobg HealthStart: 04-12-2022 [facility] CenterStart: 11-18-2022 End: 54-77-5479Snyffljq to SARS-CoV-2 (event)Not sureSuuniversity hospitals health system HealthAre you now , , , , never or living with a partner? MarriedNOMS HealthcareDo you feel stress - tense, restless, nervous, or anxious, or unable to sleep at night because yourmind is troubled all the time - these days [OSQ]Only a littleNODE HealthcareStart: 12-02-2018 End: 54-58-8628NovRrubkb (finding)[facility]tart: 93-51-7041Lrd Assigned At BirthFeLakeHealth TriPoint Medical Centertart: 08-19-2025 End: 57-47-0457Xmyjrffgi beverage intakeCurrent non-drinker of alcohol (finding) [employer] Procedure CodeEquipment CodeEquipment Original TextEquipment IdentifierDates [id number]: 08-20-2025 End: each by In Vitro route Daily Use to check FSBS four times daily [id number]: 08-20-2025 End: 61-83-2249Tff pen needles to give insulin.[id number]: 09-04-2025 Functional Status WsbwKvumkdxgroLusmidMqprgdhi57-55-3683Vkjiy score [AUDIT-C]0 09/10/2025 10:17 AM EDT Ashley, Danae [facility]09-04-2025Patient Health Questionnaire 2 item (PHQ-2) [Reported][facility] CenterBisysfozke58-97-6395Mvnspgxvei StatusN/[facility]03-08-2023Functional StatusN/[facility]02-04-2023Functional StatusN/[facility] 54-42-6507Bljqjnkrhe StatusN/[facility]08-19-2022N/[facility] Clinical Notes 04-18-2022 to 09-21-2025 Note Date & JdumKugkFvxnrsev02-19-2927 Miscellaneous Notes* Telephone Encounter - SILKE Baker - 09/21/2025 4:40 PM EDT Called regarding blood sugar logs from 09/14/25-09/20/25. Kayleigh Meza PA-C reviewed your blood sugars and would [...] blood sugar logs weekly. documented in [facility]Mc[facility]10-27-2025 Telephone encounter Note* Telephone Encounter - SILKE Baker - 09/21/2025 4:40 PM EDT Called regarding blood sugar logs from 09/14/25-09/20/25. Kayleigh Meza PA-C reviewed your blood sugars and would [...] to send in blood sugar logs weekly. [facility]10-27[facility] History of Present illness Narrative* Kayleigh Meza PA-C - 09/21/2025 12:28 PM EDT Insulin dose increased due to elevated fastings. Kayleigh Meza PA-C 09/21/25 1229 documented in this encounterMcKitrick Hospital10-22-2025 Miscellaneous Notes* Telephone Encounter - Cha Harris [...] blood sugars next week. documented in this encounterMcKitrick Hospital10-22-2025 Telephone encounter Note* Telephone Encounter - Cha Harris RN - 09/16/2025 5:47 PM EDT Called pt to discuss her blood sugars and pt let me know that she was testing per meals.Kayleigh susana reviewed her blood sugars and would santi [...] send in new blood sugars next week. [employer] Zhmdnk77-78-4289 History of Present illness Narrative* Marbella Keane, HEAVY [employer] IN[employer] - 09/16/2025 3:20 PM EDT Reason for Appointment: Patient ID: Driss Gama is a 30 y.o. female who presents for No chief complaint on file. Patient presents today for Return OB appointment. MEDICATIONS Current Outpatient Medications Medication Instructions Alcohol Swabs (Alcohol Prep Pad) 70 % pads 1 Pad, Topical, Daily, Use four times daily to check FSBS. Blood Glucose Monitoring Suppl (D-IPTEGO Glucometer) w/Device kit 1 kit, Does not [...] John San infection GDM (gestational diabetes mellitus) ([facility]) Headache History of menstrual cramps ([facility]) Varicella zoster Visual impairment HISTORY PAST MEDICAL HISTORY SOCIAL HISTORY Past Medical History: Diagnosis Date Amenorrhea d/t oral contraceptive pills Endometriosis John San infection GDM (gestational diabetes mellitus) ([facility]) Headache History of menstrual cramps severe Hypertension ([facility]) x1 Varicella zoster unsure Visual impairment [...] History: Procedure Laterality Date [place]CT[place] [facility] [place] [...] nursing note reviewed. Exam conducted with a conventions assistant present. Vitals: Estimated body mass index is 29.78 kg/m as calculated from the following: Height as of 07/30/25: 5' 2 . Weight as of this encounter: 162 lb 12.8 oz. BP: 120/80 Patient's last menstrual period was 02/21/2025. Assessment/Plan ICD-10-CM 1. 29 weeks gestation of ([facility]) Z3A.29 POCT urinalysis dipstick manually resulted 2. Third trimester ([facility]) Z34.93 POCT urinalysis dipstick manually resulted 3. Hypertension affecting , antepartum ([facility]) O16.9 4. Gestational diabetes mellitus (GDM), antepartum, gestational diabetes method of control unspecified ([facility]) O24.419 Return OB: Patient presents today [...] and continues to report glucose log to [facility]. Follow up Ultrasound in 4 weeks. Orders Placed This Encounter Procedures POCT urinalysis dipstick manually resulted Follow Up: Patient is to return to office in 2 week for routine OB appointment. Documented by Marbella Keane NP on behalf of: Nathan Pop DO documented in this encounterMissouri Baptist Medical [id number] History of Present illness Narrative* Quynh Monroy MD - 09/10/2025 11:00 AM EDT Video Visit via Real-time Synchronous Audiovisual Provider Location: [facility], MATERNAL- MEDICINE [address] [place] [address], [address] [place] [id number] [facility] Patient Location Remelter: None Video Visit Consent Statement: I discussed [...] that there are some limitations compared to oxhj-xs-ugaz evaluations. We elected to proceed. REASON FOR [...] and the other consultants, we search on [employer] and all the available care everywhere epic I did review all the imaging studies of the patient available on EMR, ordered by the primary care physician and the other citrix consultant HABITS: Patient activity no restrictions, diet [...] remote evaluation through M office until delivery. - Discontinue blood glucose evaluation and Lantus and offer formal glucose tolerance test around 6 weeks . - follow-up survey with the [facility] office visits scheduled. 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 Patient does have ultrasound video visit scheduled with us. Thank you for allowing me to participate in Driss Gama . If there any questions please do not hesitate to contact us. Sincerely, QUYNH MONROY MD * Danae Ramirez RN - [...] the provider today? none documented in this encounterMcKitrick Hospital10-10-2025 History of Present illness Narrative* Radha Magdaleno [...] Yes Have you been seen here at [facility] in a previous ? No Recent ER visits or hospitalizations? 09/03/25 Ousmane to r/o preeclampsia. Patient states labs WNL Bring blood sugar log or meter with you today? (Please bring them with you for every visit at [facility]) Yes Flu vaccine (Sep-January)? N/A Any [...] and the other consultants, we search on [employer] and all the available care everywhere epic I did review all the imaging studies of the patient available on EMR, ordered by the primary care physician and the other citrix consultant HABITS: Patient activity no restrictions, diet [...] checking blood glucose and remote evaluation through [facility] office until delivery. 5. 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 Patient does have ultrasound video visit scheduled [...] with questions or concerns. documented in this encounterMcKitrick Hospital10-09-2025 History of Present illness Narrative* Marbella Keane NP - 09/03/2025 3:50 PM EDT Reason for Appointment: Patient ID: Driss Gama is a 30 y.o. female who presents for Routine Visit Patient presents today for Return OB appointment. MEDICATIONS Current Outpatient Medications Medication Instructions Alcohol Swabs (Alcohol Prep Pad) 70 % pads 1 Pad, Topical, Daily, Use four times daily to check FSBS. Blood Glucose Monitoring Suppl (Clutch-IPTEGO Glucometer) w/Device kit 1 kit, Does not apply, Daily, Use four times daily to check FSBS. In the morning prior to breakfast & 1 hour after each meal for a total of 4times daily. givwmigvbg-gthucvj-hbwcahbx (Fiorinal) 50-325-40 MG capsule 1 capsule, Oral, [...] History: Procedure Laterality Date [place]CT[place]Y [place] [facility] [place] [...] nursing note reviewed. Exam conducted with a conventions assistant present. Vitals: Estimated body mass index is 29.41 kg/m as calculated from the following: Height as of 07/30/25: 5' 2 . Weight as of this encounter: 160 lb 12.8 oz. BP: 170/90 Patient's last menstrual period was 02/21/2025. ASSESSMENT & PLAN ICD-10-CM 1. 27 weeks gestation of ([facility]) Z3A.27 POCT urinalysis dipstick manually resulted 2. Second trimester ([facility]) Z34.92 Documented by Marbella Keane NP on behalf of: Marbella Keane NP documented in this encounterMissouri Baptist Medical [id number] Miscellaneous Notes* Telephone Encounter - Cha Harris [...] Pt asked to be transferred to the [facility] to make that appt. documented in this encounterMcKitrick Hospital10-07-2025 Telephone encounter Note* Telephone Encounter - Cha [...] Pt asked to be transferred to the sched to make that appt. [employer]10-02-2025 History of Present illness Narrative* Marbella Keane, HEAVY ANTIARMOR WE[employer]ONS INFANTRYMAN - 08/27/2025 3:20 PM EDT Reason for Appointment: Patient ID: Driss Gama is a 30 y.o. female who presents for Routine Visit Patient presents today for Return OB appointment. MEDICATIONS Current Outpatient Medications Medication Instructions Alcohol Swabs (Alcohol Prep Pad) 70 % pads 1 Pad, Topical, Daily, Use four times daily to check FSBS. Blood Glucose Monitoring Suppl (Nulu Glucometer) w/Device kit 1 kit, Does not [...] History: Procedure Laterality Date [place]ENDECTOMY 05/2016 [place] [facility] [place] [...] nursing note reviewed. Exam conducted with a conventions assistant present. Vitals: Estimated body mass index is 29.23 kg/m as calculated from the following: Height as of 07/30/25: 5' 2 . Weight as of this encounter: 159 lb 12.8 oz. BP: (!) 158/92 Patient's last menstrual period was 02/21/2025. ASSESSMENT & PLAN ICD-10-CM 1. 26 weeks gestation of ([facility]) Z3A.26 POCT urinalysis dipstick manually resulted 2. Second trimester ([facility]) Z34.92 Return OB: Patient presents today [...] labs and have her evaluated today at [facility]. I discussed with OB today and they are aware that patient is coming to be ev aluated. Orders Placed This Encounter Procedures POCT urinalysis dipstick manually resulted Follow Up: Patient is to return to office in 2 week for routine OB appointment. Documented by Marbella Keane NP on behalf of: Marbella Keane NP documented in this encounterMissouri Baptist Medical [id number] Group counseling note* Group Note - Kerline Augustin RD - 08/24/2025 1:30 PM EDT Patient: Driss Gama Date: 08/24/2025 Vitals: 08/24/25 [...] Face to face time was 80 minutes. [employer] Work Phone: [phone] 455-860109-29-2025 Miscellaneous Notes* Group Note - Kerline Augustin RD - 08/24/2025 1:30 PM EDT Patient: Driss Gama Date: 08/24/2025 Vitals: 08/24/25 [...] time was 80 minutes. documented in this encounterUniversity Of Vermont Medical CenterTus reQRdos [id number] History of Present illness Narrative* Marbella Keane NP - 08/12/2025 2:40 PM EDT [...] History: Procedure Laterality Date [place]CT[place]2016 [place] [facility] [place] [...] nursing note reviewed. Exam conducted with a conventions assistant present. Vitals: Estimated body mass index is 27.82 kg/m as calculated from the following: Height as of 07/30/25: 5' 2 . Weight as of this encounter: 152 lb 1.9 oz. BP: 138/82 Patient's last menstrual period was 02/21/2025. ASSESSMENT & PLAN ICD-10-CM 1. 24 weeks gestation of ([facility]) Z3A.24 POCT urinalysis dipstick manually resulted 2. Second trimester ([facility]) Z34.92 POCT urinalysis dipstick manually resulted [...] on Labetalol 100mg BID. Will refer to [facility] for evaluation. Patient deniesany Headache or blurred vision. Documented by Marbella Keane NP on behalf of: Nathan Pop DO documented in this encounterMissouri Baptist Medical [id number] History of Present illness Narrative* Nay Beltran DO - 07/30/2025 3:40 PM EDTAssociated Problem(s): Hypertension Record Blood Pressures 2-4 times weekly and record. Return with readings at next appointment. Call with readings if sees significant changes * Nay Beltran, - 07/30/2025 3:40 PM EDT Images from [...] infection Headache History of menstrual cramps Hypertension ([facility]) Varicella zoster Visual impairment Objective ?Quick [...] Orders: Lipid panel; Future documented in this encounterMissouri Baptist Medical [id number] History of Present illness Narrative* Christine Ravi [...] San infection Headache History of menstrual cramps ([facility]) Varicella zoster Visual impairment HISTORY [...] History: Procedure Laterality Date [place]CT[place]Y 05[place]2016 [place] [facility] [place] [...] nursing note reviewed. Exam conducted with a conventions assistant present. Vitals: Estimated body mass index is 26.48 kg/m as calculated from the following: Height as of 12/30/24: 5' 2 . Weight as of this encounter: 144 lb 12.8 oz. BP: 120/80 Patient's last menstrual period was 02/21/2025. ASSESSMENT & PLAN ICD-10-CM 1. 20 weeks gestation of ([facility]) Z3A.20 POCT urinalysis dipstick manually resulted 2. Second trimester ([facility]) Z34.92 POCT urinalysis dipstick manually resulted [...] of: Nathan Pop DO documented in this encounterMissouri Baptist Medical [id number] History of Present illness Narrative* Marbella Keane NP - 06/22/2025 2:10 PM EDT [...] History: Procedure Laterality Date [place]CTOMY 05[place]2016 [place] [facility] [place] [...] nursing note reviewed. Exam conducted with a conventions assistant present. Vitals: Estimated body mass index is 26.73 kg/m as calculated from the following: Height as of 25: 5' 2 . Weight as of this encounter: 146 lb 1.9 oz. BP: 118/74 Patient's last menstrual period was 02/21/2025. ASSESSMENT & PLAN (Z34.92) Second trimester ([facility]) Plan: POCT urinalysis dipstick manually resulted, Alpha fetoprotein, maternal, Alpha fetoprotein, maternal (Z3A.17) 17 weeks gestation of ([facility]) Plan: POCT urinalysis dipstick manually resulted, Alpha fetoprotein, maternal, Alpha fetoprotein, maternal (Z36.89) Screening, , for anatomic survey ([facility]) Plan: US OB 14+ weeks anatomy scan [...] of: Nathan Pop DO documented in this encounterMissouri Baptist Medical [id number] History of Present illness Narrative* Marbella Keane NP - 05/25/2025 2:40 PM EDT [...] San infection Headache History of menstrual cramps ([facility]) Varicella zoster Visual impairment HISTORY [...] History: Procedure Laterality Date [place]2016 [place] [facility] [place] [...] nursing note reviewed. Exam conducted with a conventions assistant present. Vitals: Estimated body mass index is 25.24 kg/m as calculated from the following: Height as of 25: 5' 2 . Weight as of this encounter: 138 lb. BP: 122/80 Patient's last menstrual period was 02/21/2025. ASSESSMENT & PLAN ICD-10-CM 1. Second trimester ([facility]) Z34.92 POCT urinalysis dipstick manually resulted 2. 13 weeks gestation of ([facility]) Z3A.13 Return OB: Patient presents today for [...] of: Nathan Pop DO documented in this encounterMissouri Baptist Medical CenterEojdckzctn98-21-3737 History of Present illness Narrative* Hina oG, 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 - 05/01/2025 9:00 AM EDT Reason for [...] History: Procedure Laterality Date [place]CTOMY 05[place]2016 [place] [facility] [place] [...] by: Hina Go LPN documented in this encounterMissouri Baptist Medical CenterQsmkajxkrw10-86-6108 History of Present illness Narrative* Christa Yanes LPN - 01/19/2025 2:50 PM EST Reason for Appointment: Patient ID: Driss Gama is a 29 y.o. female who presents for Painful [place] Patient presents today for Consult appointment. MEDICATIONS Current Outpatient Medications Medication Instructions aabrkkjrwe-sbrvnbrziigre-oueeneqr 50-325-40 MG tablet 1 tablet, Oral, Every 6 hours PRN meloxicam (MOBIC) 15 mg, Oral, Daily metoprolol succinate XL (Toprol-XL) 25 MG 24 hr tablet Take 1 tablet by mouth daily ALLERGIES No Known Allergies PROBLEMS Active Ambulatory Problems Diagnosis Date Noted Acquired equinus deformity of foot 03/29/2023 Displacement of cervical intervertebral disc without myelopathy 03/29/2023 Dysmenorrhea 03/29/2023 Endometriosis 03/29/2023 Gastroparesis 03/29/2023 Hypertension ([facility]) 03/29/2023 Intractable migraine without aura and [...] History: Procedure Laterality Date [place]CT[place]Y 05[place]2016 [place] [facility] [place] [...] nursing note reviewed. Exam conducted with a conventions assistant present. Vitals: Estimated body mass index [...] patient and patient given direct extension to Driver'S License Reviewing Officer for any questions/concerns pertaining to fertility. Documented by Christa Yanes LPN on behalf of: Nathan Pop DO documented in this encounterMissouri Baptist Medical [id number] History of Present illness Narrative* Nay Beltran DO - 12/30/2024 3:40 PM EST [...] History: Procedure Laterality Date [place]CTOMY [place]2016 [place] [facility] [place] [...] Stress: No Stress Concern Present (12/29/2024) [employer] [place] [employer] - Occupational Stress Questionnaire Feeling of Stress : Only a little Social Connections: Unknown (12/29/2024) Social Connection and Isolation Panel [NHANES] Frequency of Communication with Friends and Family: More than three times a week Frequency of Social Gatherings with Friends and Family: Once a week Attends Jainism Services: Patient declined Active Member of Clubs [...] with the patient today. Current Outpatient Medications: flvflagglb-dbeyacywmmzec-tltynoyz 50-325-40 MG tablet, Take 1 tablet by mouth every 6 (six) hours if needed for headaches, Disp: 20 tablet, Rfl: 0 desogestrel-ethinyl estradiol (Apri) 0.15-30 MG-MCG tablet, Take 1 tablet by mouth Daily, Disp: 21 tablet, Rfl: 12 metoprolol succinate XL (Toprol-XL) 25 MG 24 hr tablet, Take 1 tablet by mouth daily, Disp: 90 tablet, Rfl: 1 documented in this encounterMissouri Baptist Medical CenterBlxpoqsjsj23-66-2889 History of Present illness Narrative* Virgen Steen LPN - 08/18/2024 11:00 AM EDT Reason for Appointment: Patient ID: Driss Cope is a 29 y.o. female who presents for Well Women Visit Patient presents today for Annual Exam. MEDICATIONS Current Outpatient Medications Medication Instructions vgdrakagrh-fxwtwwlzglsee-iliehvnj 50-325-40 MG tablet 1 tablet, Oral, Every [...] History: Procedure Laterality Date [place]CT[place]Y 05/2016 [place] [facility] [place] [...] nursing note reviewed. Exam conducted with a conventions assistant present. Vitals: Estimated body mass index [...] of: Zenobia Gutierrez PA-C documented in this encounterMissouri Baptist Medical CenterOqznhktpko88-23-6296 History of Present illness Narrative* Christine Ravi LPN - 07/22/2024 9:50 AM EDT Reason for Appointment: Patient ID: Driss Cope is a 29 y.o. female who presents for Dysmenorrhea Patient presents today for Acute Visit. MEDICATIONS Current Outpatient Medications Medication Instructions ixcmzbxkkq-bymjgytasutvd-vwthkjqm 50-325-40 MG tablet 1 tablet, Oral, Every [...] History: Procedure Laterality Date [place]ENDECTOMY 05/2016 [place] [facility] [place] [...] nursing note reviewed. Exam conducted with a conventions assistant present. Vitals: Estimated body mass index [...] of: Nathan Pop DO documented in this encounterMissouri Baptist Medical CenterRaidlbnyce82-72-7723 Telephone encounter Note* Telephone Encounter - Christa Garces - 04/29/2024 8:23 AM EDT Received message from albert Webb to cancel surgery and all appts as pt had services elsewhere [facility]06-04-2024 Miscellaneous Notes* Telephone Encounter - Christa Garces - 04/29/2024 8:23 AM EDT Received message from albert Webb to cancel surgery and all appts as pt had services elsewhere documented in this encounterBarberton [facility]05-31-2024 Telephone encounter Note * Telephone Encounter - Anna De Leon - 04/25/2024 1:10 PM EDT Pt got in sooner for surgery with her local magazine 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 Please cancel surgery and all pre and post op appts. [facility]05-31-2024 Miscellaneous Notes* Telephone Encounter - Anna De Leon - 04/25/2024 1:10 PM EDT Pt got in sooner for surgery with her local magazine publisher. Please cancel surgery and all pre and post op appts. documented in this encounterBarberton [facility]02-15-2024 History of Present illness Narrative* Nathan Pop DO - 01/10/2024 10:30 AM EST Reason for Appointment: Patient ID: Driss Cope [...] History: Procedure Laterality Date [place]CT[place]Y 05/2016 [place] [facility] [place] [...] nursing note reviewed. Exam conducted with a conventions assistant present. Vitals: Estimated body mass index [...] of: Nathan Pop DO documented in this encounterMissouri Baptist Medical CenterRdjdjscxoz48-96-0221 Miscellaneous Notes* Telephone Encounter - Pippa Simon [...] mg tablet Class: Normal Route: ORAL Order: [id number] E-Prescribing Status: Receipt confirmed by pharmacy (05/17/2023 [...] that may recur and often requires a fpc treatment plan. Once endometriosis is identified, there [...] Department Center 05/20/2024 10:00 AM [facility]24 10:30 AM Charlene Rodriguez DO [facility] Appointment scheduled: As listed above Action taken: Refill request routed to clinician Pippa Simon RN January 03, 2024 4:29 PM * Telephone Encounter - Alena Tracy - 01/02/2024 3:52 PM EST Patient: Driss Cope : 1995 Provider: Charlene Rodriguez DO Caller Phone #: [phone] (home) [phone] (cell) Reason for call: b/c refill Message routed to nurse triage Date of next visit: MEGAN: 12/10/2023 documented in this encounterPatricia [place]ille [address]-15-2024 NoteHNO ID: [id number] Author: CHARLENE RODRIGUEZ DO Service: ? Author Type: Physician Type: Progress Notes Filed: 12/10/2023 15:14 Note Text: [facility] [place] SECTION FOR MINIMALLY INVASIVE GYNECOLOGIC SURGERY OUTPATIENT VISIT DATE 12/10/2023 OUTPATIENT VISIT TYPE Follow-up visit PRIMARY CARE PHYSICIAN: Cruz Rodríguez [address] [place] [address] REFERRING PHYSICIAN: Self CHIEF COMPLAINT: No chief [...] understanding and agrees with treatment plan. Charlene Kuldip, DO In clinic today, pt reports she still has pain monthly but no bleeding. States Orilissa has not improved her pain. She continues to have cramping and discomfort. Has failed norethindrone and Orilissa. Pelvic MRI: no evidence of Past Gynecologic History: Group Cio History LMP: 07/08/2023 (Exact Date), Having periods Age at Menarche: 14 Age at First : 27 Age at Menopause: Group Cio History Comments: Sexual Activity: Never; No partner [...] presents today with pelvic (more content not included)...[facility]10-18-2023 Hospital Discharge instructions Patient Education 09/12/2023 18:18:13 [...] Follow these instructions at home: Medicines Take xohb-ayb-aiefxha and prescription medicines only as told by [...] buy a blood pressure monitor at most [employer] or online. Where to find more information [place] [employer]: www.heart.org Contact a health care [...] provider. Document Revised: 07/27/2022 Document Reviewed: 07/27/2022 [employer] Patient Education 2022 [employer]. 09/12/2023 18:18:13 Hypertension, Adult, Jipl-dg-Jixm Hypertension, Adult Hypertension is another name for [...] doctor. Keep all follow-up visits. Medicines Take phcp-smu-myvgfni and prescription medicines only as told by [...] provider. Document Revised: 08/31/2022 Document Reviewed: 08/31/2022 [employer] Patient Education 2022 [employer] 09/12/2023 18:18:13 General Headache Without Cause, Tkys-ue-Cuhb General Headache Without Cause A headache is pain or discomfort you feel around the head or neck area. There are many causes and types of headaches. In some cases, the cause may not be found. Follow these instructions at home: Watch your condition for any changes. Let your doctor know about them. Take these steps to help with your condition: Managing pain Take vyrh-htn-qnrgebt and prescription medicines only as told by [...] right away. Call your local emergency services (1 int [place] Do not wait to see if [...] provider. Document Revised: 04/12/2022 Document Reviewed: 04/12/2022 [employer] Patient Education 2022 [employer] Follow Up Care 09/12/2023 17:21:57 With:CRUZ RODRÍGUEZ Address: [address] [place] [address] [place] [address]- Business (1) When:09/15/2023 18:03:37 Comments:Follow-up with your primary care provider in 3 to 5 days. If symptoms worsen, do not improve, or new symptoms arise please report back to emergency department for further evaluation. [facility]10-18-2023 Evaluation + Plan noteExtracted from: Title:ED [...] date 09/12/23 18:02:00 EDT, 09/12/23 18:02:00 EDT [facility]10-16-2023 Instructions* Patient Instructions* Srinivasa Downs APRN.CNP - 09/10/2023 9:52 AM EDT Plan: Trial baclofen suppositories - can switch to pill vaginally if suppositories are not affordable Consider Pelvic floor physical therapy - can find local provider www[email or web address] Consider going back to see Dr Kudlip Downs APRN.CNP documented in this encounterBarberton [facility]10-[facility]-2023 NoteHNO ID: [id number] Author: Charlene Rodriguez, DO Service: ? Author Type: Physician Type: Progress Notes Filed: 08/30/2023 11:15 AM Note Text: Tramadol rx sent to pharmacy.[facility]10-05-2023 History of Present illness Narrative* Charlene Rodriguez DO - 08/30/2023 11:13 AM EDT Tramadol rx sent to pharmacy. documented in this encounterBarberton [facility]10-05-2023 Miscellaneous Notes* Telephone Encounter - Chelsie Dueñas RN - 08/30/2023 10:50 AM EDT Last office visit: 08/24/2023 Assessment and Plan No diagnosis found. Trial baclofen suppositories Will send list of PTs Consider going back to [place] SIGNATURE: Srinivasa Downs APRN.WINDOWS CONSULTANT Office visit with Dr. Rodriguez 07/16/2023 IMPRESSION: [...] plan. Charlene Rodriguez DO documented in this encounterBarberton Citizens Hospital09-29-2023 NoteHNO ID: [id number] Author: Srinivasa Downs APRN.WINDOWS CONSULTANT Service: ? Author Type: Nurse Practitioner Type: Progress Notes Filed: 09/10/2023 9:53 AM Note Text: [facility] [place] Department of Benign Gynecology [facility] PATIENT NAME: Driss Cope DATE: 08/24/2023 Patient Name and verified: Yes Patient Location: [place] This Virtual Visit was completed using My Chart Zoom platform. I have communicated my name and active licensure. The patient's identity and physical location were verified at the time of this visit. Either the patient or their legal sales service representative has been informed of the [...] appointment yet. GI - constipation is improved Vernon - hasn't tried due to pain and [...] physical therapy - or can go locally [facility] [employer] Trial flexeril at bedtime Can consider Baclofen suppositories Continue Norethindrone - can take up to 3 months for it to stop periods, take at same time every day Relaxation techniques Srinivasa Downs APRN.WINDOWS CONSULTANT OB History T0 L1 SAB0 IAB0 Ectopic0 Multiple0 Live Births0 Group Cio History LMP: 07/08/2023 (Exact Date), Having periods Age at Menarche: 14 Age at First : 27 Age at Menopause: Group Cio History Comments: Sexual Activity: Never; No partner [...] toxic appearing HEENT nor (more content not included)...[facility]09-29-20[facility] History of Present illness Narrative* Srinivasa Downs APRN.ANA LAURA - 08/24/2023 9:24 AM EDT Images from the original note were not included. [facility] [place] Department of Benign Gynecology [facility] PATIENT NAME: Driss Cope DATE: 08/24/2023 Patient Name and verified: Yes Patient Location: [place] This Virtual Visit was completed using My Chart Zoom platform. I have communicated my name and active licensure. The patient's identity and physical location wereverified at the time of this visit. Either the patient or their legal sales service representative has been informed of the [...] appointment yet. GI - constipation is improved Vernon - hasn't tried due to pain and [...] physical therapy - or can go locally [facility] [employer] Trial flexeril at bedtime Can consider Baclofen suppositories Continue Norethindrone - can take up to 3 months for it to stop periods, take at same time every day Relaxation techniques Srinivasa Downs APRN.WINDOWS CONSULTANT OB History T0 L1 SAB0 IAB0 Ectopic0 Multiple0 Live Births0 Group Cio History LMP: 07/08/2023 (Exact Date), Having periods Age at Menarche: 14 Age at First : 27 Age at Menopause: Group Cio History Comments: Sexual Activity: Never; No partner [...] Level: 3 - Low documented in this encounterBarberton Citizens Hospital09-22-2023 Miscellaneous Notes* Telephone Encounter - Marilee [...] Provider: Charlene Rodriguez DO Caller Phone #: [phone] (home) [phone] (cell) Reason for call: pt calling regarding mc message., still in pain. Please call [phone] Message routed to nurse triage Date of next visit: documented in this encounterBarberton Citizens Hospital09-07-2023 Miscellaneous Notes* Telephone Encounter - Christa Suárez RN - 08/02/2023 11:29 AM EDT PA for orilissa completed via Cover MyMeds. Driss Cope (Morales: [id number]) - [id number] Orilissa 150MG tablets Status: Sent To Plan [...] too. Please advise. Thanks. documented in this encounterBarberton Citizens Hospital08-21-2023 NoteHNO ID: [id number] Author: Charlene Rodriguez, DO Service: ? Author Type: Physician Type: Progress Notes Filed: 07/16/2023 12:41 PM Note Text: [facility] [place] SECTION FOR MINIMALLY INVASIVE GYNECOLOGIC SURGERY OUTPATIENT VISIT DATE 07/16/2023 OUTPATIENT VISIT TYPE Follow-up visit PRIMARY CARE PHYSICIAN: Cruz Rodríguez [address] [place] [address] REFERRING PHYSICIAN: Cruz Rodríguez CHIEF COMPLAINT: No [...] additional bowel lesions identified Past Gynecologic History: Group Cio History LMP: 07/08/2023 (Exact Date), Having periods Age at Menarche: 14 Age at First : 27 Age at Menopause: Group Cio History Comments: Sexual Activity: Never; No partner [...] Signs: 07/16/23 1115 BP: (more content not included)...[facility]07-18-20[facility] History of Present illness Narrative* Boo Singh [...] 2023 TIME: 1:43 PM * Rosio Malcolm RT([place]) - 06/12/2023 1:30 PM EDT Radiology Service [...] 12, 2023 4:32 PM documented in this encounterBarberton Citizens Hospital07-18-2023 NoteHNO ID: [id number] Author: Rosio Malcolm RT([place]) Service: ? Author Type: Wash Box Operator Type: Progress Notes Filed: 06/12/2023 4:32 PM [...] BY: RT Claudia([place]) June 12, 2023 4:32 PMCUniversity [facility]07-[facility]23 NoteHNO ID: [id number] Author: Boo Singh RN Service: Nursing Author [...] Cope DATE: June 12, 2023 TIME: 1:43 [facility]06-22-2023 NoteHNO ID: [id number] Author: Charlene Rodriguez, DO Service: ? Author Type: Physician Type: Progress Notes Filed: 05/21/2023 10:15 AM Note Text: [facility] [place] SECTION FOR MINIMALLY INVASIVE GYNECOLOGIC SURGERY OUTPATIENT [...] to appointment last week Past Gynecologic History: Group Cio History LMP: 04/22/2023 (Exact Date), Having periods Age at Menarche: 14 Age at First : 27 Age at Menopause: Group Cio History Comments: Sexual Activity: Never; No partner [...] treatment plan. Charlene Rodriguez DO Tt: 20 minutesTrinity Health System06-22-2023 History of Present illness Narrative* Charlene Rodriguez DO - 05/17/2023 1:05 PM EDT Images from the original note were not included. [facility] SECTION FOR MINIMALLY INVASIVE GYNECOLOGIC SURGERY OUTPATIENT [...] to appointment last week Past Gynecologic History: Group Cio History LMP: 04/22/2023 (Exact Date), Having periods Age at Menarche: 14 Age at First : 27 Age at Menopause: Group Cio History Comments: Sexual Activity: Never; No partner [...] DO Tt: 20 minutes documented in this encounterBarberton Citizens Hospital06-16-2023 Miscellaneous Notes* Telephone Encounter - Christa Suárez RN - 05/11/2023 4:19 PM EDT Reports vaginal bleeding, using panty liners, changing a few times a day, not severe. Biggest complaint is cramping. Has had 3 periods of bleeding recently - 04/22/2023 LMP, last a few days, 05/04-05/10 bleeding again 05/11/2023 started again today. Takes aygestin 5mg daily. She did not pickling solution maker flexeril. Encourage to pickling solution maker the flexeril as this will help with the cramping. Reviewed red flag bleeding symptoms that require trip to ER (soaking greater than one overnight padper hour, chest pain, shortness of breath, fatigue, palpitations).. Advised keep appt. Gives verbal understanding. Appointments for Next 60 Days Date Time Provider Location Dept Phone 05/17/2023 1:00 PM CHARLENE RODRIGUEZ [facility] [phone] Christa Suárez RN * Telephone Encounter - [place] Nair [facility] [place]/11/2023 1:19 PM EDT Reason for call: other - Vaginal bleeding Provider name: Dr Rodriguez Additional comments: patient having more vaginal bleeding and concerned she is getting worse. Recommendation: routed to nurse triage pool documented in this encounterBarberton Citizens Hospital06-06-2023 Instructions* Patient Instructions* Srinivasa Downs APRN.CNP - 05/01/2023 11:47 AM EDT Plan Pelvic floor physical therapy - or can go locally [employer] Trial flexeril at bedtime Can consider [...] pelvic pain society ([email or web address].org) documented in this encounterBarberton Citizens Hospital06-06-2023 History of Present illness Narrative* Srinivasa Downs APRN.CNP - 05/01/2023 10:30 AM EDT Driss Cope is a 28 year old female who presents for problem visit for pain HPI: Pain is week before period and week of period. Worse on her period for every day she's bleeding Urinary - No symptoms GI - Always constipated. No meds Vernon - painful always Pain is on left [...] L0 SAB0 IAB0 Ectopic0 Multiple0 Live Births0 Group Cio History LMP: 03/26/2023 (Approximate), Having periods Age at Menarche: Age at First : Age at Menopause: Group Cio History Comments: Sexual Activity: Never; No partner [...] Level: 4 - Moderate documented in this encounterBarberton Citizens Hospital06-06-2023 NoteHNO ID: [id number] Author: Srinivasa Downs APRN.ANA LAURA Service: ? [...] symptoms GI - Always constipated. No meds Vernon - painful always Pain is on left [...] L0 SAB0 IAB0 Ectopic0 Multiple0 Live Births0 Group Cio History LMP: 03/26/2023 (Approximate), Having periods Age at Menarche: Age at First : Age at Menopause: Group Cio History Comments: Sexual Activity: Never; No partner [...] time every day Relaxation techniques Srinivasa Downs APRN.WINDOWS CONSULTANT Medical Decision Making: Problems: Moderate: New problem with uncertain prognosis Data: Unique source(s) for external note(s) reviewed: 1 Unique test result(s) reviewed: 1 Risk: Moderate: Drug management Medical Decision Making Level: 4 - ModerateTr[facility] System05-31-2023 Miscellaneous Notes* Telephone Encounter - Marilee Valdez [...] months. Lucila Foss RN documented in this encounterBarberton Citizens Hospital03-08-2023 Hospital Discharge instructions Patient Education 01/31/2023 [...] told by your health care provider. Take fjcg-kza-rcxewox and prescription medicines only as told by [...] 01/03/2007 Document Revised: 10/25/2018 Document Reviewed: 01/25/2018 [employer] Patient Education 2020 [employer] Follow Up Care 01/31/2023 13:43:01 With:Cruz Meza Address:Unknown When:02/03/2023 18:59:31 Comments:Follow-up for evaluation of hypertension in context of known preeclampsia in the period With:CRUZ RODRÍGUEZ Address: [address] [place] [address]- Business (1) When:Within 3 Day(s) [facility]03-08-2023 Evaluation + Plan noteExtracted from: Title:ED NoteAuthor:Mayur Mabry PA-C CDate:01/31/23 Flank pain (R10.9: Unspecifi ed abdominal pain) Headache (R51.9: Headache, unspecified) Orders: CTA Chest Hepatic Function Panel [facility]02-04-2023 Hospital Discharge instructions Patient Education 12/30/2022 13:59:51 SALES SERVICE REPRESENTATIVE - Post D&C, Hysteroscopy, LEEP or Essure/Laparoscopy [...] Instructions - FT (Custom) (Custom) 12/30/2022 13:55:16 SALES SERVICE REPRESENTATIVE - Post D&C, Hysteroscopy, LEEP or Essure/Laparoscopy [...] With:Cruz Meza Address: [address], [address] [address]- Business (1) When: Unknown Comments:follow up in 1-2 weeks With:CRUZ RODRÍGUEZ Address: [address] [place] [address]- Business (1) When:01/02/2023 09:21:18 [facility]02-04-2023 Evaluation + Plan noteExtracted from: Title:ANES [...] from:Title:ANES Pre-operative NoteAuthor:Kenneth Agustin MDDate: 12/30/22 Plan [place] [employer] Anesthesiologists (ASA) physical status classification: Class II, E. Anesthetic Preoperative Plan: Anesthesia General. Extracted from:Title:ED NoteAuthor:Edin Bermudez M.D. HDate:12/30/22 1. Retained products of conc eption with hemorrhage (O72.2: Delayed and secondary hemorrhage) Orders: ABO/Rh ABO/Rh History Check Antibody Screen Automated Diff Basic Metabolic Panel Blood Bank ID# CBC w/ Auto Diff eGFR Extra SST Tube PT & PTT Saline Lock Insert UA With Cult Reflex US Pelvis Non-OB Complete [facility]01-10-2023 History of Present illness Narrative* Tory Pimentel - 12/05/2022 1:35 PM EST Vital signs BP 127/87 Weight 149.2lb Pulse 106 Temp 96.7 * Tonia Diallo DO - 12/05/2022 1:35 PM EST Images from the original note were not included. Driss Anatoliy 12/05/2022 27 y.o. Chief Complaint Patient presents [...] WHC: This patient was seen in the [facility] by the resident. I reviewed and agree with the care provided by the resident during or immediately following the visit including the patient's medical history, the resident's finding in the physical exam, patient's diagnosis and treatment plan. documented [facility] this [facility]01-07-2023 NoteDepartment of Obstetrics and Gynecology Delivery Discharge Summary Admission on 11/28/2022 12:24 AM Hospital course: Driss Cope at 35w1d admitted as a transfer from [facility] for [facility]. She was started on Magnesium there and [...] Information for the patient's : Francie Cope [[id number]] female 2425 g (5 lb 5.5 oz) Apgars: Information for the patient's : Francie Cope [[id number]] : : Girl Blood Type/Rh: O Antibody [...] Your Medications These medications were sent to [facility] [address] [place] [address] Hours: Sunday to Sunday 10 am to 6 pm docusate sodium 100 MG capsule ibuprofen 600 MG tablet NIFEdipine XL 30 MG 24 hr tablet Activity: Activity as tolerated Diet: Regular diet Follow-up Appointments: - visit - Blood pressure check If a patient meets criteria for hypertension, make sure the following are done prior to discharge: [] Order a blood pressure kit through [facility] (or the patient's own pharmacy on the weekend) [] Order the blood pressure log through [facility] [x] Place an office visit or telephone [...] notify her physician if any of these occur.[facility]01-07-2023 History of Present illness Narrative* Anna Booth RN - 12/02/2022 1:41 PM EST Late entry due to patient care. Resident Yoel notified of B.P 138/96 heart rate 119 around 1236 see flowsheet. Also notified checked in 1 hour via orders and B.P 143/87 pulse 111. Clarified if should check in 1 hour according to orders. . Also notified patient has discharge order in. Resident Yoel states No on rechecking. Ok to discharge. [...] FVL+Prothrombin (heterozygous), Antithrombin III, APLS Assessment/Plan: Driss Stephensifeoma is PPD # 2 s/p Care - [...] findings and plans of the resident physician, andagrjami as documented in her note. Doing well PPD#1, chauhan catheter still in place for urinary retention - plan to remove today and re-attempt spontaneous void. Blood pressures stable on Procardia 30XL, continue to monitor. Consider discharge tomorrow if blood pressures remain controlled and urinary retention resolved. I spent 15 minutes in the visit, with more than 50% of the total caob-wg-bqvb time of the visit in counseling/coordination of [...] be monitored and followed by the diet field map technician. CRISS Oshea * Alejandra Arcos RN - 11/30/2022 11:30 AM EST Patient unable to void, last straight cathed at 0400. Bladder scan obtained for >928 ml, fundus +2 and shifted to right. Patient straight cathed on attempt x2 by Andi Bacno RN for 950cc. Will continue to monitor. [...] and reassuring. CCM. Cx:1/70/-3 FHT: Cat [address]:q3-4 min A/P: 1. IOL-PreEwSF. FHT 130 baseline, with moderate variability, Accelerations present Yes, and rare late deceleration . Cervical exam unchanged. Cytotec x4 placed at this time. Patient intermittently feeling contractions. BP mild range. Cx: 1-2/70/-3 FHP: defer FHT: Cat [address]: a3-4min A/P: 1. IOL-PreEwSF: FHT Category I, [...] Cx: unchanged FHP: defer FHT: Cat [address]: q4min A/P: 1. IOL-PreEwSF: FHT Category I, [...] 11/29/2022 6:17 AM Cx:1-2/60/-3 FHT: Cat [address]:q4-5mins A/P: 1. IOL-PreEwSF: Cat I FHT with [...] per protocol. CCM. Cx:defer FHT: Cat [address]:q4-6mins A/P: 1. IOL-PreEwSF: Cat I FHT with baseline 120, moderate variability, spontaneous accelerations, and no decelerations. BP normotensive to mild range since last note time. Pitocin @ 2 cc/hr, continue to titrate per protocol. Magnesium sulfate running for seizure prophylaxis, UOP 400 ml over past 4hours. CCM. Cx:defer FHT: Cat [address]:q4-5mins A/P: 1. IOL-PreEwSF: Cat I FHT with baseline 135, moderate variability, spontaneous accelerations, and no decelerations. BP normotensive to mild range since last note time. Pitocin @ 6 cc/hr, continue to titrate per protocol. Magnesium sulfate running for seizure prophylaxis, UOP 600 ml over past 4hours. Will plan for AROM soon. CCM. Cx:defer FHT: Cat I [address]:irritability A/P: 1. IOL-PreEwSF: Pit @ 8 mu/min. Patient resting comfortably and only irritability tracing on toco. BP most recently mild range. On magnesium sulfate for seizure prophylaxis. UOP adequate. Continue magnesium and continue to titrate pitocin per protocol. Plan for AROM once patient rudi more regularly. Electronically signed by Cortney Velasquez DO 11/29/2022 4:21 PM Cx:/-3 FHT: Cat [address]:Not tracing A/P: 1. IOL-PreEwSF. FHT 135 baseline, with moderate variability, Accelerations present Yes, and nodecelerations seen . AROM at this time for moderate amount blood tinged fluid. Pitocin at 8cc/hr. Maternal BP mild range. On Magnesium for Seizure prophylaxis. Patient with adequate urinary output. CCM. Cx: defer FHP: defer FHT: Cat II [address]: not tracing well A/P: 1. IOL-PreEwSF: FHT [...] per RN FHP: defer FHT: Cat [address]: q4min A/P: 1. IOL-PreEwSF: FHT Category II [...] delivery note for details documented [facility]01-07-2023 Hospital course Narrative* César Tran DO - 12/02/2022 12:32 PM EST Images from the original note were not included. Department of Obstetrics and Gynecology Delivery Discharge Summary Admission on 11/28/2022 12:24 AM Hospital course: Driss Cope at 35w1d admitted as a [facility] She was startedon Magnesium there and transported [...] Information for the patient's : Francie Cope [[id number]] female 2425 g (5 lb 5.5 oz) Apgars: Information for the patient's : Francie Cope [[id number]] : : Girl Blood Type/Rh: O Antibody [...] Your Medications These medications were sent to [facility] [address] [place] [address] Hours: Sunday to Sunday 10 am to 6 pm docusate sodium 100 MG capsule ibuprofen 600 MG tablet NIFEdipine XL 30 MG 24 hr tablet Activity: Activity as tolerated Diet: Regular diet Follow-up Appointments: - visit - Blood pressure check If a patient meets criteria for hypertension, make sure the following are done prior to discharge: [] Order a blood pressure kit through [facility] (or the patient's own pharmacy on the weekend) [] Order the blood pressure log through [facility] [x] Place an office visit or telephone [...] any of these occur. documented in this [facility]01-06-2023 Note* Care Coordination - Christine Michelle [...] home. Denies any concerns at this time. [facility] [id number] Note* Care Coordination - Christine Michelle RN [...] home. Denies any concerns at this time. [facility] [id number] Miscellaneous Notes* Care Coordination - Christine Michelle [...] indicated for this pt. Due to: in [facility] Hospital breast pump, supplies kit, swabs [...] Told patient to check with LC in [facility] for smaller flange sizes * L&D Delivery Note - Irina Kramer DO - 11/30/2022 4:04 AM EST Images from the original note were not included. Vaginal Delivery Note Department of Obstetrics and Gynecology Patient: Driss Cope : 1995 Date of delivery: 11/30/2022 Pre-operative Diagnosis: Driss Mojica0 at 35w1d 1. <37 weeks 2. PreEwSF Post-operative Diagnosis: Live Born female Delivering Truck Repair Supervisor & Clearing House Clerk(s): Dr. Bowden; Dr. Kramer Information: Information for the patient's : Francie Cope [[id number]] Information for the patient's : Francie Cope [[id number]] Description: normal Meconium Noted: No Anesthesia: epidural anesthesia Complications: None Application and Delivery: Driss Cantley at 35w1d admitted for IOL-PreEwSF. Her labor [...] change. Clotilde Mg RN documented [facility]01-06-2023 Obstetrics Note* Note - Ligia Bridges RN - 12/01/2022 9:00 AM EST 22.5mm flanges given to patient. Encouraged her to call for observation of pump session and smallerflanges. Martha in NICU to assist with personal pump. [facility] [id number] Hospital Discharge instructions* Discharge Instructions* Carol Bowden [...] as 8 weeks after delivery. Bleeding may pickling solution maker and then decrease again around 7-10 days [...] avoid constipation you may take a mild verg-yex-ujfidcm stool softener (such as colace) as recommended [...] positive or a Person Under Investigation (PUI) Svksuc-rn-jajzi transmission of COVID-19 during is unlikely, but after a baby is susceptible to gjqhvv-rv-brijgf spread. After your baby is born, your [...] clean your hands with an alcohol-based hand health and safety trainer that contains at least 60% alcohol. Clean your hands often Wash your hands often with soap and water for at least 20 seconds, especially after blowing your nose, coughing, or sneezing; going to the bathroom; and before eating or preparing food. If soap and water are not readily available, use an alcohol-based hand health and safety trainer with at least 60% alcohol, covering all [...] healthcare provider to call the local or [facility] health department. Persons who are placed underactive [...] isolation precautions should be made on a iekj-ml-nrvc basis, in consultation with healthcare providers and [facility] local health departments. Information on [...] respiratory tract signs and symptoms. Ways to [place] with Anxiety & Stress It is normal [...] an illness that was first found in [facility], in October 2019. It has since spread [...] seen in people before. This virus spreads sesidg-nx-cacbqk through droplets from coughing and sneezing. It [...] water aren't available, use an alcohol-based hand health and safety trainer. Call 911 anytime you think you may [...] of: February 25, 2020 Content Version: 12. [employer]. Care instructions adapted under license by your healthcare professional. If you have questions about a medical condition or this instruction, always ask your healthcare professional. [employer] disclaims any warranty or liability for your use of this information. General Recommendations for Routine Cleaning and Disinfection of Households Community members can practice routine cleaning of frequently touched surfaces (for example: tables, doorknobs, light switches, handles, desks, toilets, faucets, sinks) with household heel shaver and EPA-registered disinfectants that are appropriate for [...] appropriate. These supplies include tissues, paper towels, heel shaver and EPA-registered disinfectants (see list link at [...] be used for other purposes. Consult the medicaid collection specialist's instructions for cleaning and disinfection products used. [...] used if appropriate for the surface. Follow medicaid collection specialist's instructions for application and proper ventilation. Check [...] water Products with EPA-approved emerging viral pathogens [facility] iconexternal icon are expected to be effective against COVID-19 based on data for harder to kill viruses. Follow the medicaid collection specialist's instructions for all cleaning and disinfection products (e.g., concentration, application method and contact time, etc.). Soft (porous) surfaces such as carpeted floor, rugs, and drapes Remove visible contamination if present and clean with appropriate heel shaver indicated for use on these surfaces. After cleaning: Launder items as appropriate in accordance with the medicaid collection specialist's instructions. If possible, launder items using the [...] items as appropriate in accordance with the medicaid collection specialist's instructions. If possible, launder items using the warmest appropriate water setting for the items and dry items completely. Dirty laundry from an ill person can be washed with other people's items. Clean and disinfect clothes hampers according to guidance above for surfaces. If possible, considerplacing a baggage porter head that is either disposable (can be thrown away) or can be laundered. CDC has a list of EPA approved cleaning products on their website - https://www.cdc.gov/coronavirus/ 2019-ncov/community/home/cleaning-disinfection.html https://www.Pal[employer]Qffgq-Vtcxftzovox-Zvvkllms-Products-List.pdf myhub Stores with delivery and pickling solution maker services: [facility]: Free pickling solution maker at locations Delivery is $12.95 a month Website - [employer] [place]: Primer Supervisor $2.95 (1st order is free) Delivery is $14.95 Website - [employer] [place]: master control supervisor is free Delivery is $5.95 [employer]: master control supervisor is $4.95 Delivery is $9.95 [employer]: master control supervisor is $4.95 Delivery is $9.95 [employer]: Can be ordered for delivery and pickling solution maker with [employer] Website - [employer]: Free deliver for first 3 orders of $35 or more Website - [employer] Will deliver from [facility], Me[employer], [employer], and [employer]. Annual membership is $99 Monthly membership is $14 * Attachments The following attachments cannot be sent through Care Everywhere. * Preeclampsia Discharge Instructions (Marshallese) documented in this encounterSOhioHealth Grant Medical [id number] Obstetrics Note* Note - Sheila Harrell RN - 11/30/2022 10:37 AM EST Swabs given to patient and educated how to use and to bring to infant CRISTIAN [facility] [id number] Obstetrics Note* Note - Sheila Harrell RN - 11/30/2022 10:30 AM EST Breast pump use indicated for this pt. Due to: in [facility] breast pump, supplies kit, swabs [...] LC in SCN for smaller flange sizes [facility] [id number] NotePatient: Driss Cope Procedure Summary Date: 11/29/22 [...] discharged once all PACU criteria has been met.[facility]01-05-2023 NotePatient: Driss Cope Procedure Summary Date: [...] Allowed opportunity for questions and acknowledgement of understanding.[facility]01-05-2023 Labor and delivery summary note* L&D Delivery Note - Irina Kramer DO - 11/30/2022 4:04 AM EST Images from the original note were not included. Vaginal Delivery Note Department of Obstetrics and Gynecology Patient: Driss Cope : 1995 Date of delivery: 11/30/2022 Pre-operative Diagnosis: Driss Mojica0 at 35w1d 1. <37 weeks 2. PreEwSF Post-operative Diagnosis: Live Born female Delivering Truck Repair Supervisor & Clearing House Clerk(s): Dr. Bowden; Dr. Kramer Infant Information: Information for the patient's : Francie Cope [[id number]] Information for the patient's : Francie Cope [[id number]] Description: normal Meconium Noted: No Anesthesia: epidural [...] surgery as described in the resident note. [facility] [id number] NoteEpidural Block Time Out: 11/29/2022 6:17 PM Patient location during procedure: OB Start time: 11/29/2022 6:18 PM End time: 11/29/2022 6:45 PM Reason for block: labor analgesia Staffing Performed: SHEEP HERDER Resident/SHEEP HERDER: Jimmie Kaur APRN - SHEEP HERDER Preanesthetic Checklist Completed: patient identified, IV checked, [...] patient tolerated procedure well with no immediate complicationsS[facility]row [facility]01-04-[facility]23 Plan of care note* Care Plan - Clotilde Mg RN - 11/29/2022 7:45 AM EST The patient will continue to make cervical change. Clotilde Mg RN [facility] [id number] NotePatient: Driss Cope Procedure Information Date: 11/28/22 [...] patient is not NPO Additional Equipment [facility]01-03-2023 NoteLabor Progress Note Date: 11/28/2022 Time: [...] and reassuring. CCM. Cx:/-3 FHT: Cat [address]:q3-4 min A/P: 1. IOL-PreEwSF. FHT 130 baseline, with moderate variability, Accelerations present Yes, and rare late deceleration . Cervical exam unchanged. Cytotec x4 placed at this time. Patient intermittently feeling contractions. BP mild range. Cx: 1-/-3 FHP: defer FHT: Cat [address]: a3-4min A/P: 1. IOL-PreEwSF: FHT Category I, with modertae variability, accelerations present, and decelerations absent. BP NT largely throughout today, most recently mild range. UOP has not been documented today, day nurse did not document. Discussed with night nurse. Magnesium running for seizure prophylaxis. 2nd dose of BMZ received. Dr Keita updated. PRINCE JOSE ANTONIO, DO 11/28/2022 7:43 PM Cx: unchanged FHP: defer FHT: Cat I [address]: q4min A/P: 1. IOL-PreEwSF: FHT Category I, with moderate variability, accelerations present, and decelerations absent. Blood pressure mild. UOP adequate. Cytotec #6 placed at this time. Magnesium running for seizure prophylaxis. PRINCE BRADY DO 11/29/2022 1:42 AM Cat I for past 4 hours. Cytotec time is up. Although discussed with Dr Keita patient will eat breakfast at this time. Plan for SVE after. PRINCECOURTNEY BRADY DO 11/29/2022 6:17 AM Cx:1-2/60/-3 FHT: Cat I [address]:q4-5mins A/P: 1. IOL-PreEwSF: Cat I FHT with [...] per protocol. CCM. Cx:defer FHT: Cat I [address]:q4-6mins A/P: 1. IOL-PreEwSF: Cat I FHT with baseline 120, moderate variability, spontaneous accelerations, and no decelerations. BP normotensive to mild range since last note time. Pitocin @ 2 cc/hr, continue to titrate per protocol. Magnesium sulfate running for seizure prophylaxis, UOP 400 ml over past 4 hours. CCM. Cx:defer FHT: Cat I [address]:q4-5mins A/P: 1. IOL-PreEwSF: Cat I FHT with baseline 135, moderate variability, spontaneous accelerations, and no decelerations. BP normotensive to mild range since last note time. Pitocin @ 6 cc/hr, continue to titrate per protocol. Magnesium sulfate running for seizure prophylaxis, UOP 600 ml over past 4 hours. Will plan for AROM soon. CCM. Cx:defer FHT: Cat I [address]:irritability A/P: 1. IOL-PreEwSF: Pit @ 8 mu/min. Patient resting comfortably and only irritability tracing on toco. BP most recently mild range. On magnesium sulfate for seizure prophylaxis. UOP adequate. Continue magnesium and continue to titrate pitocin per protocol. Plan for AROM once patient rudi more regularly. Electronically signed by Cortney Velasquez DO 11/29/2022 4:21 PM Cx:/-3 FHT: Cat [address]:Not tracing A/P: 1. IOL-PreEwSF. FHT 135 baseline, with moderate variability, Accelerations present Yes, and no decelerations seen . AROM at this time for moderate amount blood tinged fluid. Pitocin at 8cc/hr. Maternal BP mild range. On Magnesium for Seizure prophylaxis. Patient with adequate urinary output. CCM. Cx: defer FHP: defer FHT: Cat II [address]: not tracing well A/P: 1. IOL-PreEwSF: FHT Category II for brief period of lates vs early deceleration (more content not included)...[facility]01-03-2023 NoteObstetrical History and Physical CHIEF COMPLAINT: [...] 34w6d Is this patient being delivered between 75i5n-84i4p weeks with an acceptable medical indication (obstetric, maternal, and/or )? NA: Not Applicable: This patient is being delivered outside of the PC-01 range (42m1u-39y0p) for reasons indicated in the medical record. [...] VTE Prophylaxis: Not Indicated (more content not included)...[facility]01-03-2023 History and physical note* Cassie Constantino [...] 34w6d Is this patient being delivered between 78t9g-58n2e weeks with an acceptable medical indication (obstetric, maternal, and/or )? NA: Not Applicable: This patient is being delivered outside of the PC-01 range (17f5o-51h9k) for reasons indicated in the medical record. [...] plan. Cassie Constantino MD 11/28/2022, 12:48 AM [facility] [id number] History and physical note* Cassie Constantino MD [...] 34w6d Is this patient being delivered between 42s5c-27c1j weeks with an acceptable medical indication (obstetric, maternal, and/or )? NA: Not Applicable: This patient is being delivered outside of the PC-01 range (60s3c-42b7g) for reasons indicated in the medical record. [...] MD 11/28/2022, 12:48 AM documented in this [facility]01-02-2023 Evaluation + Plan note Extracted from:Title:OB High Risk Antepartum Visit *Author:Fredi DORSEY MD Date:11/27/22 Impression and Plan Diagnosis 34 weeks 5 days. Preeclampsia. contractions. Maternal tachycardia.. Course: Worsening, New onset headache may be a signal of worsening symptoms of preeclampsia.. Orders I discussed this case with the maternal- medicine department at [facility] in [place], Dr. Thea Nieves, she accepted to transfer due to preeclampsia. 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 She is provided with a note for work. Additional diagnosis: Constipation, UTI and [facility]08-19-2022 Hospital Discharge instructions Follow Up Care 07/14/2022 06:07:36 With:Cruz Meza Address:Unknown When:07/17/2022 07:24:48 With:CRUZ RODRÍGUEZ Address: [address] [place] [address]- Business (1) When:Within 3 Day(s) [facility]08-19-2022 Hospital Discharge instructions Follow Up Care 07/14/2022 04:40:16 With:Cruz Meza Address: [address], [address] [place] [address]- Business (1) When:07/17/2022 Comments:Appointment has already been scheduledCall Dr if fever>100.5 F, heavy bleedingCall for any problems.Call for severe abdominal painCall physician for heavy vaginal bleedingCall physician if symptoms worsenPlease call if you need to rescheduleReturn for contractions closer, longer, harderReturn ifruptured membranes or vaginal bleeding [facility]05-31-2022 Evaluation + Plan note Diagnostic Tests Pending * [id number] 04/25/22 * NIGEL w/Reflex if POS 04/25/22 * Ceruloplasmin 04/25/22 * HCV Antibody RFX to Quant PCR 04/25/22 * HBV Core Ab 04/25/22 * Hepatitis B Surface Antibody 04/25/22 * Hepatitis B Surface Antigen 04/25/22 * Smooth Muscle Antibody Screen 04/25/22 [facility]05-24-2022 Evaluation note* Encounter Date Diagnosis Assessment Notes Treatment Notes Treatment Clinical Notes March, Elevated liver function tests (I CD-10 - R79.89) LABS INDICATED ABOVE AVdirectCAN [employer] Other Evaluation note* Diagnosis Pelvic pain in female- Primary Unspecified symptom associated with female genital organs [facility]* Diagnosis Chronic pelvic pain in female- Primary Unspecified symptom associated with female genital organs Constipation, unspecified constipation type High-tone pelvic floor dysfunction Other specified disorders of female genital organs Diastasis of rectus abdominis Dysmenorrhea Other specified dyspareunia documented in this encounter [facility]* Diagnosis Endometriosis- Primary Endometriosis, site unspecified Pelvic and perineal pain Unspecified symptom associated with female genital organs documented in this encounter [facility]* Diagnosis Pelvic pain in female- Primary Unspecified symptom associated with female genital organs documented [facility]* Diagnosis Pelvic pain in female- Primary Unspecified symptom associated with female genital organs documented [facility]* Diagnosis High-tone pelvic floor dysfunction- Primary Other specified disorders of female genital organs Chronic pelvic pain in female Unspecified symptom associated with female genital organs documented [facility] this encounter [facility]* Diagnosis Pelvic and perineal pain Unspecified symptom associated with female genital organs documented [facility]* Diagnosis Menorrhagia with regular cycle Pelvic pain in female Unspecified symptom associated with female genital organs Uses control [facility]* Diagnosis Preeclampsia, severe, third trimester- Primary Preeclampsia, severe, third trimester [facility]* Diagnosis Pre-eclampsia, severe, delivered- Primary [facility] Diagnosis Dysmenorrhea, unspecified [facility]* Diagnosis Well woman exam with routine gynecological exam Routine gynecological examination [facility]* Diagnosis Hypertension, unspecified type ([facility])- Primary Paroxysmal tachycardia, unspecified ([facility]/HCC) Paroxysmal tachycardia, unspecified Chronic right shoulder pain Pain in joint, shoulder region Scapular dyskinesis Lack of coordination [facility]* Diagnosis Pain in female genitalia on intercourse Dyspareunia Endometriosis Endometriosis, site unspecified documented [facility] noteNo assessment information availableSheltering Arms [facility] Work Phone: Evaluation note* Diagnosis Missed menses , unspecified gestational age Encounter for supervision of normal first in first trimester documented [facility]* Diagnosis Nonintractable episodic headache, unspecified headache type- Primary Second trimester ([facility]) state, incidental 13 weeks gestation of ([facility]) documented [facility]* Diagnosis Sinusitis, unspecified chronicity, unspecified location- Primary Second trimester ([facility]) state, incidental 17 weeks gestation of ([facility]) Screening, , for anatomic survey ([facility]) Encounter for anatomic survey documented [facility]* Diagnosis 20 weeks gestation of ([facility]) Second trimester ([facility]) state, incidental Diabetes mellitus screening Screening for diabetes mellitus documented [facility]* Diagnosis Wellness examination- Primary Hypertension, unspecified type Lipid screening Screening for lipoid disorders [facility]* Diagnosis Wellness examination- Primary Hypertension, unspecified type Lipid screening Screening for lipoid disorders 24 weeks gestation of ([facility]) Second trimester ([facility]) state, incidental Elevated glucose tolerance test Impaired glucose tolerance test documented [facility]* Diagnosis Gestational diabetes mellitus (GDM) in second trimester, gestational diabetes method of control unspecified documented in this encounter [facility]* Diagnosis Wellness examination- Primary Hypertension, unspecified type Lipid screening Screening for lipoid disorders 26 weeks gestation of ([facility]) Second trimester ([facility]) state, incidental induced hypertension, antepartum ([facility]) Transient hypertension of , antepartum Gestational diabetes mellitus (GDM) in second trimester, gestational diabetes method of control unspecified ([facility]) documented in this encounter [facility]* Diagnosis Wellness examination- Primary Hypertension, unspecified type Lipid screening Screening for lipoid disorders Hypertension affecting , antepartum ([facility])- Primary 27 weeks gestation of ([facility]) Second trimester ([facility]) state, incidental documented in this encounter [facility] HealthcareEvaluation note* Diagnosis Diet controlled gestational diabetes mellitus (GDM) in second trimester- Primary Essential hypertension affecting in third trimester documented in this encounter [facility]* Diagnosis 28 weeks gestation of - Primary Insulin controlled gestational diabetes mellitus (GDM) in second trimester Essential hypertension affecting in third trimester documented in this encounter [facility]* Diagnosis Essential hypertension affecting in third trimester documented in this encounter [facility]* Diagnosis Wellness examination- Primary Hypertension, unspecified type Lipid screening Screening for lipoid disorders 29 weeks gestation of ([facility]) Third trimester ([facility]) state, incidental Hypertension affecting , antepartum ([facility]) Gestational diabetes mellitus (GDM), antepartum, gestational diabetes method of control unspecified([facility]) documented in this encounter [facility] HealthcareEvaluation note* Diagnosis Insulin controlled gestational diabetes mellitus (GDM) in third trimester- Primary Essential hypertension affecting in third trimester documented in this encounter [facility] note* Diagnosis Insulin controlled gestational diabetes mellitus (GDM) in second trimester documented in this encounter [facility] SystemHistory general Narrative - Reported* Type Description Date Medical History headache Surgical HistoryappendectomySurgical Historyshoulder surgerySurgical History endometriosis [employer] Other History of Present illness Narrative* 26 [...] engaged x 1 year * working at [employer] in [place] [address] Work Phone: Hospital course Narrative No data available for this section [facility] No data available for this section [facility] HospitalInstructionsNot on filedocumented in this encounter [facility] SystemInstructionsNot on filedocumented in this encounter [facility] SystemInstructionsNot on filedocumented in this encounter [facility] SystemInstructionsNot on filedocumented in this encounter [facility] SystemInstructions* Attachments The following attachments cannot be sent through Care Everywhere. * Preeclampsia (Marshallese) documented in this encounterProMedimn Health SystemInstructionsNot on file documented in this encounterProMedica Health SystemInstructionsNot on file documented in this encounterProMedimn Health SystemInstructionsNot on file documented in this encounterProNoland Hospital [facility] SystemProgress note No data available for this section [facility] HospitalReason for visit NarrativePT HERE AT REQUEST OF DR RODRÍGUEZ FOR EVALUATION AND TREATMENT OF ELVATED LIVER FUNCTION- ( DR. SAMUEL PT), LABS FROM DR RODRÍGUEZ REVIEWED BY DR Iraheta [employer] Other Summary Purpose Family History Unknown Family Member Name Dates Details No pertinent family history: Mother(V49.89, Z78.9) Status:Active Relationship Condition Age at Onset Recorded Date/T laney father Malignant neoplasm of colon Unknown grandparentMalignant neoplasm of colonUnknownMalignant neoplasm of breastUnknown grandparentMalignant neoplasm of breastUnknownfatherFamily history of colon cancerUnknownDeceasedUnknownMalignant neoplasmUnknownfamily memberDeceased UnknownmotherHypertensionUnknown Advance Directives Code StatusDate ActivatedDate InactivatedCommentsFull Code11/28/2022 12:47 AM 12/02/2022 8:31 PMCode StatusDate ActivatedDate InactivatedCommentsFull Code 11/28/2022 12:47 AM12/02/2022 8:31 PM Advance Directive Response Recorded Date/ Time Advance Directives No May 16 12:02pm Procedure Findings Note Post Operative Note: PreOp D iagnosis: chronic pelvic pain Post-Procedure Diagnosis: endometriosis Procedure: 1. Laparoscopic excision of endometriosis 2. Bilateral ureterolysis Surgeon: Dr. Charlene Rodriguez Resident/Fellow/Other Clearing House Clerk: Glory Palacio Anesthesia: general I.V. Fluids: [...] to discuss pain related to endometriosis, declined conventions assistant. 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 Reason for Referral SpecialtyDiagnoses / ProceduresReferred By ContactReferred To ContactMR IMAGING Diagnoses Pelvic and perineal pain Procedures MRI FEMALE PELVIS WO/W IVCON MRI PELVIS W/O & W/CONTRAST MATERIAL Charlene Rodriguez DO [address] [address] Mr Imaging Referral IDStatusReasonStart DateExpiration DateVisits RequestedVisits [id number] Auto-Generated Referral /[id number] / ProceduresReferred By ContactReferred To [facility] Diagnoses Constipation, unspecified constipation type High-tone pelvic floor dysfunction Diastasis of rectus abdominis Dysmenorrhea Other specified dyspareunia Chronic pelvic pain in female Procedures CONSULT TO PHYSICAL THERAPY PHYSICAL THERAPY EVALUATION HIGH COMPLEX 45 MINS Srinivasa Downs, JAMI.WINDOWS CONSULTANT [address] [place] [address] [facility] [place] [address] [place] [address] Referral IDStatusReasonStart DateExpiration DateVisits RequestedVisits [id number] Auto-Generated Referral / Chief Complaint and Reason for Visit Chief Complaint Admit Date N94.10 N80.9 February 02, 2025 3:1 6pm Additional Source Comments INFORMATION SOURCE (unrecogn ized section and content) DATE CREATED AUTHOR 10/26/2020 [facility] DATE CREATED AUTHOR AUTHOR'S ORGANIZ ATION 11/06/2020 [facility] DATE CREATED AUTHOR AUTHOR'S ORGANIZ ATION 12/17/2020 [facility] DATE CREATED AUTHOR AUTHOR'S ORGANIZ ATION 04/21/2021 [facility] DATE CREATED AUTHOR AUTHOR'S ORGANIZ ATION 06/05/2021 [facility] DATE CREATED AUTHOR AUTHOR'S ORGANIZ ATION 10/02/2021 [facility] DATE CREATED AUTHOR AUTHOR'S ORGANIZ ATION 02/10/2022 [employer] DATE CREATED AUTHOR AUTHOR'S ORGANIZ ATION 12/05/2022 [facility] DATE CREATED AUTHOR AUTHOR'S ORGANIZ ATION 04/30/2024 [facility] DATE CREATED AUTHOR AUTHOR'S ORGANIZ ATION 02/09/2025 [facility] DATE CREATED AUTHOR AUTHOR'S ORGANIZ ATION 03/15/2025 [facility] DATE CREATED AUTHOR AUTHOR'S ORGANIZ ATION 08/03/2025 [facility] DATE CREATED AUTHOR AUTHOR'S ORGANIZ ATION 08/13/2025 [facility] DATE CREATED AUTHOR AUTHOR'S ORGANIZ ATION 08/16/2025 [facility] DATE CREATED AUTHOR AUTHOR'S ORGANIZ ATION 08/20/2025 [facility] DATE CREATED AUTHOR AUTHOR'S ORGANIZ ATION 08/21/2025 [facility] DATE CREATED AUTHOR AUTHOR'S ORGANIZ ATION 08/29/2025 [facility] DATE CREATED AUTHOR AUTHOR'S ORGANIZ ATION 09/06/2025 [facility] DATE CREATED AUTHOR AUTHOR'S ORGANIZ ATION 09/12/2025 [facility] DATE CREATED AUTHOR AUTHOR'S ORGANIZ ATION 09/18/2025 [facility] EPIC Care Team (unrecognized sect ion and content) Team MemberRelationshipSpecialtyStart DateEnd Date Cruz Rodríguez MD [address] [place] [address] PCP - GeneralFamily Medicine12/03/14Team MemberRelationshipSpecialtyStart DateEnd Date Cruz Rodríguez MD [address] [place] [address] PCP - Generalmily Medicine12/03/14Team MemberRelationshipSpecialtyStart DateEnd Date Cruz Rodríguez MD [address] [place] [address] PCP - GeneralFamily Medicine12/03/14Team MemberRelationshipSpecialtyStart DateEnd Date Cruz Rodríguez MD [address] [place] [address] PCP - Generalmi Medicine12/03/14Team MemberRelationshipSpecialtyStart DateEnd Date Cruz Rodríguez MD [address] [place] [address] PCP - Generalmi Medicine12/03/14Team MemberRelationshipSpecialtyStart DateEnd Date Cruz Rodríguez MD [address] [place] [address] PCP - Generalmi Medicine12/03/14Team MemberRelationshipSpecialtyStart DateEnd Date Cruz Rodríguez MD [address] [place] [address] PCP - GeneralFamily Medicine12/03/14Team MemberRelationshipSpecialtyStart DateEnd Date Cruz Rodríguez MD [address] [place] [address] PCP - GeneralFamily Medicine12/03/14Team MemberRelationshipSpecialtyStart DateEnd Date Cruz Rodríguez MD [address] [place] [address] PCP - GeneralFamily Medicine12/03/14Team MemberRelationshipSpecialtyStart DateEnd Date Cruz Rodríguez MD [address] [place] [address] PCP - Generalmily Medicine12/03/14Team MemberRelationshipSpecialtyStart DateEnd Date Cruz Rodríguez MD [address] [place] [address] PCP - [facility] Wijuynnkbd06/1/21 Cruz Rodríguez MD [address] [place] [address] PCP - GeneralFamily Medicine04/10/23 Cruz Rodríguez MD [address] [place] [address] PCP - [facility]02/24/23 Zenobia East NP [address] [place] [address] Nurse PractitionerFamily Vxqfxwxn13/10/23 Trista Thao NP [address] [place] [address] Nurse PractitionerPulmonary Jcaeujd34/10/23Team MemberRelationshipSpecialtyStart DateEnd Date Cruz Rodríguez MD [address] [place], [facility] PCP - [facility]Method[facility]12/03/14Team MemberRelationshipSpecialtyStart DateEnd Date Cruz Rodríguez MD [address] [place] [address] PCP - Generalmily Medicine12/03/14Team MemberRelationshipSpecialtyStart DateEnd Date Cruz Rodríguez MD [address] [place], [facility]70 PCP - [place] Wbtvnhqfgd16/1/21 Cruz Rodríguez MD [address] [place] [address] PCP - [facility]02/24/23 Nay Beltran DO [address] [place] [address] PCP - Generalmily Medicine02/14/24Team MemberRelationshipSpecialtyStart DateEnd Date Cruz Rodríguez MD [address] [place] [address] PCP - [facility] Dlyavipwju25/1/21 Cruz Rodríguez MD [address] [place] [address] PCP - [facility]02/24/23 Nay Beltran DO [address] [place] [address] PCP - [facility]02/14/24Team MemberRelationshipSpecialtyStart DateEnd Cruz Rodríguez MD [address] [place] [address] PCP - [place] Ovwnccvhkq37/1/21 Cruz Rodríguez MD [address] [place] [address] PCP - [facility]02/24/23 Nay Beltran DO [address] [place] [address] PCP - [facility]02/14/24Te MemberRelationshipSpecialtyStart DateEnd Date Cruz Rodríguez MD [address] [place] [address] PCP - [place] Zvwlqhfakc43/1/21 Cruz Rodríguez MD [address] [place] [address] PCP - [facility]02/24/23 Nay Beltran DO [address] [place] [address] PCP - [facility]02/14/24Team MemberRelationshipSpecialtyStart DateEnd Date Cruz Rodríguez MD [address] [place] [address] [facility] Cruz Rodríguez MD [address] [place] [address] PCP - [facility]02/24/23 Nay Beltran, DO [address] [place] [address] PCP - [facility]02/14/24Te MemberRelationshipSpecialtyStart DateEnd Date Cruz Rodríguez MD [address] [place] [address] PCP - [facility]09/26/21 Nay Beltran DO [address] [place] [address] PCP - [facility]02/14/24Team MemberRelationshipSpecialtyStart DateEnd Date Nay Beltran DO [address] [place] [address] PCP - [facility]02/14/24Team MemberRelationshipSpecialtyStart DateEnd Date Nay Beltran, DO [address] [place] [address] PCP - [facility]02/14/24 Team Status: Active Member Role Status Dates Cruz Rodríguez MD Primary Care Provider Active Team Status: Inactive Member Role Status Dates Cruz Rodríguez MD Primary Care Provider Active S tart: February 02, 2025 End: February 02orepearl Pop DOAttending ProviderActiveStart: February 02, 2025 End: February 02, 2025Team MemberRelationshipSpecialtyStart DateEnd Date Nay Beltran DO [address] [place] [address] PCP - [facility] Medicine02/14/24 Nay Beltran DO [address] [place] [address] PCP - [facility]07/27/2412Team MemberRelationshipSpecialty Start DateEnd Date Nay Beltran DO [address] [place] [address] PCP - [facility] Medicine02/14/24 Nay Beltran DO [address] [place] [address] PCP - [facility]07/27/2412Team MemberRelationshipSpecialty Start DateEnd Date Nay Beltran DO [address] [place] [address] PCP - [facility] Medicine02/14/24 Nay Beltran DO [address] [place] [address] PCP - [facility]07/27/2412Team MemberRelationshipSpecialty Start DateEnd Date Nay Beltran DO [address] [place] [address] PCP - [facility] Medicine02/14/24 Nay Beltran, DO [address] [place] [address] PCP - [facility]07/27/2412Team MemberRelationshipSpecialty Start DateEnd Date Nay Beltran DO [address] [place] [address] PCP - [facility] Medicine02/14/24 Nay Beltran, DO [address] [place] [address] PCP - [facility]07/27/2412Team MemberRelationshipSpecialty Start DateEnd Date Nay Beltran DO [address] [place] [address] PCP - [facility] Medicine02/14/24 Nay Beltran, [address] [place] [address] PCP - [facility]07/27/2412Team MemberRelationshipSpecialty Start DateEnd Date Nay Beltran DO [address] [place] [address] PCP - [facility] Medicine02/14/24 Nay Beltran, [address] [place] [address] PCP - [facility]07/27/2412Team MemberRelationshipSpecialty Start DateEnd Date Nay Beltran DO [address] [place] [address] PCP - GeneralFamily Medicine02/14/24 Nay Beltran, DO [address] [place] [address] PCP - [facility]07/27/2412Team MemberRelationshipSpecialty Start DateEnd Date Nay Beltran, DO [address] [place] [address] [facility]24 Nay Beltran, DO [address] [place] [address] PCP - [facility]07/27/2412Team MemberRelationshipSpecialty Start DateEnd Date Nay Beltran, DO [address] [place] [address] PCP - [facility] Medicine02/14/24 Nay Beltran, DO [address] [place] [address] PCP - [facility]07/27/2412Team MemberRelationshipSpecialty Start DateEnd Date Nay Beltran, DO [address] [place] [address] [facility] Nay Beltran, DO [address] [place] [address] PCP - [facility]07/27/2412Team MemberRelationshipSpecialty Start DateEnd Date Cruz Rodríguez MD [address] [place] [address] [facility]12/02/18Team MemberRelationshipSpecialtyStart DateEnd Date Cruz Rodríguez MD [address] [place] [address] PCP - [facility] Medicine12/02/18Team MemberRelationshipSpecialtyStart DateEnd Date Nay Beltran DO [address] [place] [address] PCP - [facility] Medicine02/14/24 Nay Beltran DO [address] [place] [address] PCP - [facility]07/27/2412Team MemberRelationshipSpecialty Start DateEnd Date Nay Beltran DO [address] [place] [address] PCP - [facility]02/14/24 Nay Beltran DO [address] [place] [address] PCP - [facility]07/27/2412Team MemberRelationshipSpecialty Start DateEnd Date Nay Beltran DO [address] [place] [address] PCP - [facility]02/14/24 Nay Beltran DO [address] [place] [address] PCP - [facility]07/27/2412Team MemberRelationshipSpecialty Start DateEnd Date Nay Beltran DO [address] [place] [address] [facility]/24 Nay Beltran, DO [address] [place] [address] PCP - [facility]07/27/2412Team MemberRelationshipSpecialty Start DateEnd Date Cruz Rodríguez MD [address] [place] [address] PCP - [facility] Medicine12/02/18Team MemberRelationshipSpecialtyStart DateEnd Date Nay Beltran, DO [address] [place] [address] PCP - [facility] Medicine02/14/24 Nay Beltran, DO [address] [place] [address] PCP - [facility]07/27/2412Team MemberRelationshipSpecialty Start DateEnd Date Nay Beltran, [address] [place] [address] [facility]/14/24 Nay Beltran DO [address] [place] [address] PCP - [facility]07/27/2412 MemberRelationshipSpecialty Start DateEnd Date Cruz Rodríguez MD [address] [place] [address] PCP - [facility]12/02/18 MemberRelationshipSpecialtyStart DateEnd Date Cruz Rodríguez MD [address] [place] [address] PCP - [facility]12/02/18 MemberRelationshipSpecialtyStart DateEnd Date Nay Beltran DO [address] [place] [address] [facility]/14/24 Nay Beltran DO [address] [place] [address] PCP - [facility]07/27/2412 MemberRelationshipSpecialty Start DateEnd Date Nay Beltran DO [address] [place] [address] PCP - [facility] Medicine02/14/24 Nay Beltran, DO [address] [place] [address] PCP - [facility]07/27/2412 MemberRelationshipSpecialty Start DateEnd Date Cruz Rodríguez MD [address] [place] [address] PCP - [facility] Medicine12/02/18Team MemberRelationshipSpecialtyStart DateEnd Date Cruz Rodríguez MD [address] [place] [address] [facility] - [facility]12/[facility]/18 Source Comments (unrecognize d section and content) In the event this informatio n is protected by the Federal Confidentiality of Alcohol and Drug Abuse Patient Records regulations: The Federal rules restrict any use of the information to criminally investigate or prosecute any alcohol or drug abuse patient.[facility]In the event this information is protected by the Federal Confidentiality of Alcohol and Drug Abuse Patient Records regulations: The Federal rules restrict any use of the information to criminally investigate or prosecute any alcohol or drug abuse patient.[facility] HospitalIn the event this information is protected by the Federal Confidentiality of Alcohol and Drug Abuse Patient Records regulations: The Federal rules restrict any use of the information to criminally investigate or prosecute any alcohol or drug abuse patient.[facility] HospitalIn the event this information is protected by the Federal Confidentiality of Alcohol and Drug Abuse Patient Records regulations: The Federal rules restrict any use of the information to criminally investigate or prosecute any alcohol or drug abuse patient.[facility] HospitalIn the event this information is protected by the Federal Confidentiality of Alcohol and Drug Abuse Patient Records regulations: The Federal rules restrict any use of the information to criminally investigate or prosecute any alcohol or drug abuse patient.[facility] HospitalIn the event this information is protected by the Federal Confidentiality of Alcohol and Drug Abuse Patient Records regulations: The Federal rules restrict any use of the information to criminally investigate or prosecute any alcohol or drug abuse patient.[facility] HospitalIn the event this information is protected by the Federal Confidentiality of Alcohol and Drug Abuse Patient Records regulations: The Federal rules restrict any use of the information to criminally investigate or prosecute any alcohol or drug abuse patient.[facility] HospitalIn the event this information is protected by the Federal Confidentiality of Alcohol and Drug Abuse Patient Records regulations: The Federal rules restrict any use of the information to criminally investigate or prosecute any alcohol or drug abuse patient.[facility] HospitalIn the event this information is protected by the Federal Confidentiality of Alcohol and Drug Abuse Patient Records regulations: The Federal rules restrict any use of the information to criminally investigate or prosecute any alcohol or drug abuse patient.[facility] HospitalIn the event this information is protected by the Federal Confidentiality of Alcohol and Drug Abuse Patient Records regulations: The Federal rules restrict any use of the information to criminally investigate or prosecute any alcohol or drug abuse patient.[facility] HospitalIn the event this information is protected by the Federal Confidentiality of Alcohol and Drug Abuse Patient Records regulations: The Federal rules restrict any use of the information to criminally investigate or prosecute any alcohol or drug abuse patient.[facility] HospitalIn the event this information is protected by the Federal Confidentiality of Alcohol and Drug Abuse Patient Records regulations: The Federal rules restrict any use of the information to criminally investigate or prosecute any alcohol or drug abuse patient.[facility] HospitalIn the event this information is protected by the Federal Confidentiality of Alcohol and Drug Abuse Patient Records regulations: The Federal rules restrict any use of the information to criminally investigate or prosecute any alcohol or drug abuse patient.[facility] HospitalIn the event this information is protected by the Federal Confidentiality of Alcohol and Drug Abuse Patient Records regulations: The Federal rules restrict any use of the information to criminally investigate or prosecute any alcohol or drug abuse patient.[facility] HospitalIn the event this information is protected by the Federal Confidentiality of Alcohol and Drug Abuse Patient Records regulations: The Federal rules restrict any use of the information to criminally investigate or prosecute any alcohol or drug abuse patient.[facility] Reason for Visit (unrecogniz ed section and content) ReasonCommentsMenstrual ProblemReasonCommentsVaginal BleedingReasonComments EndometriosisReasonCommentsInsurance AuthorizationOrilissaReasonCommentsPelvic PainSpecialtyDiagnoses / ProceduresReferred By ContactReferred To ContactOB/SALES SERVICE REPRESENTATIVE / GYNECOLOGY Diagnoses Painful menstrual periods Painful Periods Procedures OFFICE/OUTPATIENT ESTABLISHED [facility] 10-19 MIN EST WHI PATIENT Srinivasa Downs, HOT ROLL INSPECTOR.WINDOWS CONSULTANT [address] [place] [address] Srinivasa Downs, HOT ROLL INSPECTOR.WINDOWS CONSULTANT [address] [place] [id number] Referral IDStatusReasonStart DateExpiration DateVisits RequestedVisits [id number]/[id number] MRI SpecialtyDiagnoses / ProceduresReferred By ContactReferred To ContactMR IMAGING Diagnoses Pelvic and perineal pain Procedures MRI FEMALE PELVIS WO/W IVCON MRI PELVIS W/O & W/CONTRAST MATERIAL Charlene Rodriguez, DO [address] [address] [facility] [place] [address] Referral IDStatusReasonStart DateExpiration DateVisits RequestedVisits [id number] Auto-Generated Referral //[id number] DateCommentsRefill Ppzkldy42/07/2024Reason CommentsMenorrhagiaCramping with bleedingReasonCommentsSurgery Cancelled SpecialtyDiagnoses / ProceduresReferred By ContactReferred To Contact Diagnoses Preeclampsia, severe, third trimester Procedures O14.13 - Preeclampsia, severe, third trimester Ritu Ryder, DO [address] [place] [address] [facility] [address] [place] [address] Referral IDStatusReasonStart DateExpiration DateVisits RequestedVisits [id number] Pressure CheckReasonCommentsDysmenorrhea ReasonCommentsWell Women VisitReasonCommentsShoulder PainReasonCommentsPainful IntercourseReasonCommentsAmenorrheaReasonCommentsRoutine VisitReason CommentsGestational DiabetesSpecialtyDiagnoses / ProceduresReferred By Contact Referred To ContactMaternal and Medicine Diagnoses Gestational diabetes mellitus (GDM) in second trimester, gestational diabetes method of control unspecified Nathan Pop R, DO [address] [place] [address] Phone: tel: fax: Maternal- Medicine at [facility] [address] [place] [address] Phone: tel: fax: Referral IDStatusReasonStart DateExpiration DateVisits RequestedVisits [id number] Review Specialty Services Required /[id number] consult Scheduled Active and Recently Administ ered [...] 1502 (New Bag - Provider: Alejandra Arcos, RN) * 0112 (New Bag - Provider: Lani [...] every 2-3 minutes with cervical changes or Silva units (MVU) greater than 200 in a [...] DIALLO) * 0551 (Given - Provider: Lani Fraga, DIALLO) * 1221 (Given - Provider: Alejandra Arcos RN) * 2327 (Given - Provider: Lida Mark RN) * 0942 (Given - Provider: Anna [...] RN) * 2327 (Given - Provider: Lida Mark RN) * 0942 (Given - Provider: Anna Booth RN) * 1601 (Given - Provider: Anna Booth, RN) lanolin [...] BE BASED ON THE PRIMARY CLINICAL RECORDS. [employer] provides no warranty or guarantee of the accuracy or completeness of information in this document.
== END 2025-09-23 17:58 | disposition home or self-care (01) ==
LOC: FBCO 17:27 → FBC 17:28
PROVIDERS: Family Provider Family Medicine; PCP Family Medicine; Visit Provider Obstetrics & Gynecology
DX: O16.3 Unspecified maternal hypertension, third trimester (principal)
CPT/HCPCS: 59025

== ENCOUNTER 2025-09-26 10:55 | Outpatient (OUT) | payer OTHER, SELFPAY ==
--- OUTSIDE RECORDS SUMMARY | 2025-09-03 15:50 | XMS_ITS | Encounter Summary ---
Author Organization [facility] Address [address] [place] [address] Care Team Providers Care Wheat Buyer Name Role Phone Eliceo Beltran DO Primary Care Provider [phone] CharlottegeovaniEliceo kauffman Unavailable [phone] Reason for Visit * ReasonCommentsRoutine Visit Encounter Details DateTypeDepartmentCare Team (Latest Contact Info)Bdebcvmwqrp05/09/2025 3:50 PM EDTRoutine [facility] [address] [place] [address] Steph Keane, DEVYN [address] [place] [address] Hypertension affecting , antepartum ([facility]) (Primary Dx); 27 weeks gestation of ([facility]); Second trimester ([facility]) Social History Tobacco UseTypesPacks/DayYears UsedDateSmoking Tobacco: NeverSmokeless Tobacco: NeverAlcohol UseStandard Drinks/WeekCommentsNever0 (1 standard drink = 0.6 oz pure alcohol)caffeine: 1-2 cups per day, coffee and [id number] Health Literacy AnswerDate RecordedHow often do you [...] relatives?Once a week12/29/2024How often do you attend taoism or catholic services?Patient ocpkmtud42/03/2025Do you belong to any clubs or organizations such as taoism groups, unions, [employer] or athletic leodan ups, or school groups?No12/29/2024How often do you attend meetings of the clubs or organizations you belong to?Patient lanhwlwk75/03/2025re you , , , , never , [...] hard at all12/29/2024PHQ-2AnswerDate RecordedPatient Health Questionnaire-2 Score0 07/30/2025[facility] [place] [facility] - Occupational Stress QuestionnaireAnswerDate RecordedDo you feel stress - tense, restless, nervous, or anxious, or unable to sleep at night because yourmind is troubled all the time - these days?Only a jjzelg1012/29/2024Exercise Vital SignAnswerDate Recorded On average, how many [...] steady place to sleep or slept in [facility] (including now)?No09/19/2023Housing Stability Vital SignAnswerDate RecordedIn the last 12 months, was there a time when you were not able to pay the mortgage or rent on time?No12/29/2024Number of Times Moved in the Last YearNot on file12/29/2024t any time in the past 12 months, were you homeless or living in a senior living (including now)?No12/29/2024 EducationAnswerDate RecordedWhat is the highest level of school you have completed or the highest degree you have received?High school ytedgttm73/29/2023 Estimated Date of YjldtvuzBdwrthkzRph31/03/2026ased on last menstrual period of 02/21/2025Sex and Gender InformationValueDate RecordedSex Assigned at BirthNot on fileLegal MgtGbwarw98/15/2023 7:18 PM EDTGender IdentityNot on file Sexual OrientationNot on 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 oqklgzyfpx-gbcdlmh-ujmopbso (Fiorinal) 50-325-40 MG capsule 1 capsule, Oral, [...] infection Headache History of menstrual cramps ([facility]) Varicella zoster Visual impairment HISTORY PAST [...] History: Procedure Laterality Date APPENDECTOMY 05/2016 at [facility] [place] CURE[facility] 12/2022 retained placenta [...] nursing note reviewed. Exam conducted with a first coat sander present. Vitals: Estimated body mass index is 29.41 kg/m?? as calculated from the following: Height as of 07/30/25: 5' 2 . Weight as of this encounter: 160 lb 12.8 oz. BP: 170/90 Patient's last menstrual period was 02/21/2025. ASSESSMENT & PLAN ICD-10-CM 1. 27 weeks gestation of ([facility]) Z3A.27 POCT urinalysis dipstick manually resulted 2. Second trimester ([facility]) Z34.92 Return OB: Patient presents [...] Plan of Treatment DateTypeDepartmentCare Team (Latest Contact Info)Ihbuutemhzr92/05/2025 3:00 PM ESTRoutine [facility] [address] [place] [address] Nathan Pop DO [address] [place] [address] documented as of this encounter Procedures Procedure NamePriorityDate/TimeAssociated DiagnosisCommentsPOCT URINALYSIS YBERVNKSDfqunzq07/09/2025 4:26 PM EDT 27 weeks gestation of ([facility]) documented in this encounter Results [...] Diagnoses Diagnosis Hypertension affecting , antepartum ([facility] Primary 27 weeks gestation of ([facility]) Second trimester ([facility]) state, incidental documented in this encounter Care Teams Team MemberRelationshipSpecialtyStart DateEnd Date Eliceo Beltran DO [address] [place] [address] PCP - GeneralFamily Medicine02/14/24 Eliceo Beltran DO [address] [place] [address] PCP - Medical [employer]07/27/2412documented as of this encounter
--- OUTSIDE RECORDS SUMMARY | 2025-09-16 15:20 | XMS_ITS | Encounter Summary ---
Author Organization [facility] Address [address] [place] [address] Care Team Providers Care Pressure Tester Operator Name Role Phone CharlotteEliceo medina Primary Care Provider [phone] CharlottecarolEliceo Bryant DAY Unavailable [phone] Encounter Details DateTypeDepartmentCare Team (Latest Contact Info)Vqjkhcztlkj16/22/2025 3:20 PM EDTRoutine [facility] [address] [place] [phone] Nathan Pop DO [address] [place], [facility] 29 weeks gestation of ([facility]); Third trimester ([facility]); Hypertension affecting , antepartum ([facility]); Gestational diabetes mellitus (GDM), antepartum, gestational diabetes method of control unspecified([facility]) Social History Tobacco UseTypesPacks/DayYears UsedDateSmoking Tobacco: NeverSmokeless Tobacco: NeverAlcohol UseStandard Drinks/WeekCommentsNever0 (1 standard drink = 0.6 oz pure alcohol)caffeine: 1-2 cups per day, coffee and [id number] Health Literacy AnswerDate RecordedHow often do you [...] relatives?Once a week12/29/2024How often do you attend scientology or lutheran services?Patient aivjxqtd39/03/2025Do you belong to any clubs or organizations such as scientology groups, unions, [employer] or athletic leodan ups, or school groups?No12/29/2024How often do you attend meetings of the clubs or organizations you belong to?Patient abavxxeh70/03/2025re you , , , , never , [...] Health Questionnaire-2 Score0 07/30/2025[facility] [place] of Occupational Health - Occupational Stress QuestionnaireAnswerDate RecordedDo you feel stress - tense, restless, nervous, or anxious, or unable to sleep at night because yourmind is troubled all the time - these days?Only a oiflpw5812/29/2024Exercise Vital SignAnswerDate Recorded On average, how many [...] steady place to sleep or slept in [facility] (including now)?No09/19/2023Housing Stability Vital SignAnswerDate RecordedIn the last 12 months, was there a time when you were not able to pay the mortgage or rent on time?No12/29/2024Number of Times Moved in the Last YearNot on file12/29/2024t any time in the past 12 months, were you homeless or living in a usp (including now)?No12/29/2024 EducationAnswerDate RecordedWhat is the highest level of school you have completed or the highest degree you have received?High school omiatmxf73/29/2023 Estimated Date of XcouwwvhAerkxrilHaa90/03/2026ased on last menstrual period of 02/21/2025Sex and Gender InformationValueDate RecordedSex Assigned at BirthNot on fileLegal MthTpcbcq11/15/2023 7:18 PM EDTGender IdentityNot on file Sexual OrientationNot on 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 Not on fileNot on fileNot on filedocumented as of this encounter Last Filed Vital Signs Vital SignReadingTime TakenCommentsBlood Ajovkkog206/8010 4:04 PM EDT Pulse--Temperature--Respiratory Rate--Oxygen Saturation--Inhaled Oxygen Concentration--Lpbazl09.8 kg (162 lb 12.8 oz)09/16/2025 4:04 PM [...] John San infection GDM (gestational diabetes mellitus) ([facility]) Headache History of menstrual cramps ([facility]) Varicella zoster Visual impairment HISTORY PAST MEDICAL HISTORY SOCIAL HISTORY Past Medical History: Diagnosis Date Amenorrhea d/t oral contraceptive pills Endometriosis John San infection GDM (gestational diabetes mellitus) ([facility]) Headache History of menstrual cramps severe Hypertension ([facility]) x1 Varicella zoster unsure Visual [...] History: Procedure Laterality Date APPENDECTOMY 05/2016 at [facility] [place] [facility] 12/2022 retained placenta DISTAL [...] nursing note reviewed. Exam conducted with a fur stylist present. Vitals: Estimated body mass index is 29.78 kg/m?? as calculated from the following: Height as of 07/30/25: 5' 2 . Weight as of this encounter: 162 lb 12.8 oz. BP: 120/80 Patient's last menstrual period was 02/21/2025. Assessment/Plan ICD-10-CM 1. 29 weeks gestation of ([facility]) Z3A.29 POCT urinalysis dipstick manually resulted 2. Third trimester ([facility]) Z34.93 POCT urinalysis dipstick manually resulted 3. Hypertension affecting , antepartum ([facility]) O16.9 4. Gestational diabetes mellitus (GDM), antepartum, gestational diabetes method of control unspecified ([facility]) O24.419 Return OB: Patient presents today for [...] and continues to report glucose log to [facility]. Follow up Ultrasound in 4 weeks. Orders Placed This Encounter Procedures POCT urinalysis dipstick manually resulted Follow Up: Patient is to return to office in 2 week for routine OB appointment. Documented by Steph Keane NP on behalf of: Nathan Pop DO documented in this encounter Plan of Treatment DateTypeDepartmentCare Team (Latest Contact Info)Sxwygosggjz16/05/2025 3:00 PM ESTRoutine [facility] [address] [place] [phone] Nathan Pop DO [address] [place], [place] [id number] NameTypePriorityAssociated DiagnosesOrder ScheduleUS OB follow up transabdominal approachImagingRoutine Gestational diabetes mellitus (GDM), antepartum, gestational diabetes method of control unspecified([facility]) every 4 weeks for 2 Occurrences starting 09/16/2025 until 12/17/2025US biophysical profile w non stress testImagingRoutine Gestational diabetes mellitus (GDM), antepartum, gestational diabetes method of control unspecified([facility]) Expected: 09/16/2025, Expires: 09/16/2026documented as of this encounter Procedures Procedure NamePriorityDate/TimeAssociated DiagnosisCommentsPOCT URINALYSIS JBNTFZGZJjeedad00/22/2025 4:09 PM EDT 29 weeks gestation of ([facility]) Third trimester ([facility]) documented in this encounter Results [...] Visit Diagnoses Diagnosis 29 weeks gestation of ([facility]) Third trimester ([facility]) state, incidental Hypertension affecting , antepartum ([facility]) Gestational diabetes mellitus (GDM), antepartum, gestational diabetes method of control unspecified([facility]) documented in this encounter Care Teams Team MemberRelationshipSpecialtyStart DateEnd Date Eliceo Beltran DO [address] [place] [address] PCP - GeneralFamily Medicine02/14/24 Eliceo Beltran DO [address] [place] [address] PCP - Medical [place] [employer]07/27/2412documented as of this encounter
--- OUTSIDE RECORDS SUMMARY | 2025-09-26 10:59 | XMS_ITS | Encounter Summary ---
Author Organization [facility] Address [address] [place] [address] Care Team Providers Care Maintenance Helper Utility Engineer Name Role Phone Cruz Rodríguez MD Unavailable + [phone] Cruz Rodríguez MD Primary Care Provider + [phone] Cruz Rodríguez MD Unavailable + 54 [place] REPORTER Unavailable Trista Thao REPORTER Unavailable [phone] Eliceo Beltran DO Primary Care Provider [phone] Eliceo Beltran DO Unavailable [phone] Encounter Details DateTypeDepartmentCare Team (Latest Contact Info)Xyjgyxsdjkz19/20/2024linisync Result Encounter [facility] Unsolicited Jony Pop, DO [address] [place] [address] Social History Tobacco UseTypesPacks/DayYears UsedDateSmoking Tobacco: NeverSmokeless Tobacco: NeverAlcohol UseStandard Drinks/WeekCommentsNever0 (1 standard drink = 0.6 oz pure alcohol)caffeine: 1-2 cups per day, coffee and [id number] Health Literacy AnswerDate RecordedHow often do you [...] relatives?Once a week12/29/2024How often do you attend voodoo or zoroastrianism services?Patient iwfnofud85/03/2025Do you belong to any clubs or organizations such as voodoo groups, unions, [employer] or athletic leodan ups, or school groups?No12/29/2024How often do you attend meetings of the clubs or organizations you belong to?Patient ofjoacpp79/03/2025re you , , , , never , [...] Health Questionnaire-2 Score0 07/30/2025[facility] [place] [facility] Occup[facility] - Occupational Stress QuestionnaireAnswerDate RecordedDo you feel stress - tense, restless, nervous, or anxious, or unable to sleep at night because yourmind is troubled all the time - these days?Only a tfibzc5412/29/2024Exercise Vital SignAnswerDate Recorded On average, how many [...] steady place to sleep or slept in [facility] (including now)?No09/19/2023Housing Stability Vital SignAnswerDate RecordedIn the last 12 months, was there a time when you were not able to pay the mortgage or rent on time?No12/29/2024Number of Times Moved in the Last YearNot on file12/29/2024t any time in the past 12 months, were you homeless or living in a intermediate (including now)?No12/29/2024 EducationAnswerDate RecordedWhat is the highest level of school you have completed or the highest degree you have received?High school pnsxnmaj81/29/2023 CommentsUnknownSex and Gender InformationValueDate RecordedSex Assigned at BirthNot on fileLegal ToiVbhykz69/15/2023 7:18 PM EDTGender IdentityNot on fileSexual OrientationNot on 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 End Date CashierNot on fileNot on fileNot on filedocumented as of this encounter Functional Status * AUDIT-C ScoreAnswerDate of YmpaagtsjfDabmfj577/03/2025 10:25 PM ESTChristine, Generic * Q1: How often do you have a drink containing alcohol?AnswerDate of Assessment AuthorMonthly or less12/29/2024 10:25 PM ESTChristine, Generic * Q2: How many drinks containing alcohol do you have on a typical day when you are drinking?AnswerDate of AssessmentAuthorPatient does not drink12/29/2024 10:25 PM Chip, Generic * Q3: How often do you have six or more drinks on one occasion?AnswerDate of VjrbphxjdtLhxoeyBktho65/03/2025 10:25 PM Chip, Generic * Over the past 2 weeks, how often have you been bothered by any of the following problems?QuestionAnswerDate of AssessmentAuthorLittle interest or pleasure in doing thingsNot at all07/30/2025 3:36 PM Bill Locke LPNFeeling down, depressed, or hopelessNot at all07/30/2025 3:36 PM EDT Bill Gould LPNPatient Health Questionnaire-2 [id number] 3:36 PM Bill Locke LPN documented as of this encounter Plan of Treatment DateTypeDepartmentCare Team (Latest Contact Info)Zzbtommujjz80/05/2025 3:00 PM ESTRoutine [facility] [address] [place] [phone] Jony Pop DO [address] [place] [address] documented as of this encounter Procedures Procedure NamePriorityDate/TimeAssociated DiagnosisCommentsUS PELVIS W/ BEIQPUDVWXBQ50/20/2024 11:42 AM EST documented in this encounter Results * US PELVIS W/ TRANSVAGINAL (01/15/2024 11:42 AM EST)Anatomical RegionLaterality ModalityOtherSpecimen (Source)Anatomical Location / LateralityCollection Method / VolumeCollection TimeReceived Time01/15/2024 11:42 AM EST Narrative 01/15/2024 11:44 AM EST [facility] ?[address] ? [place], [facility] ? Ultrasound Report ? Signed ? Patient: ANATOLIY,DRISS M ?MR#: [id number] ?? : 1995 ?Acct:[id number] ?? Age/Sex: 28 / F ?ADM Date: 01/15/24 ?? [facility] ? Attending Dr: Jony Pop D.O. ? Ordering Physician: Jony Pop D.O. ?? Date of Service: 01/15/24 ?? Procedure(s): US pelvis w/ transvaginal ?? Accession Number(s): [id number] ? cc: Jony Pop D.O.; Physician,Non-Staff M.D. ? [facility] ? [address] [facility] ? [place] [address] ? Patient Name: ?? DRISS COPE ? MRN: [facility]:[id number] ? date: 1995 ?Sex: F ?? Assigned [facility] ?? Current [facility] ?? Accession/Order Number: [id number] ?? Exam Date: 01/15/2024 ??07:57 ?Report Date: 01/15/2024 ??11:42 ? At the request of: ?? JONY ??KIESHA ? Procedure: ??US pelvis w/ transvaginal ? EXAMINATION: US pelvis w/ transvaginal ? HISTORY: PELVIC PAIN ? COMPARISON: No relevant comparison available. ? TECHNIQUE: Transabdominal and/or transvaginal sonographic examination was ?? performed as indicated by examination type. ? FINDINGS: ?? UTERUS: Normal size and appearance. Uterus size: 7.3 x 3.1 x 4.4 cm ?? ENDOMETRIUM: Normal homogeneous appearance. Endometrial thickness: 3 mm ? RIGHT OVARY: Normal size and appearance. Duplex Doppler demonstrates normal ?? waveform and flow; resistive index 0.6. Ovary size: 2.5 x 1.3 x 2.7 cm ? LEFT OVARY: Normal size and appearance. Duplex Doppler demonstrates normal ?? waveform and flow; resistive index 0.6. Ovary size: 3.6 x 1.2 x 2.3 cm ? CUL-DE-SAC: Unremarkable. No significant free fluid. ?? BLADDER: Unremarkable. ?? OTHER: None. ? US/US pelvis w/ transvaginal ?? IMPRESSION: ? 1. Normal pelvic ultrasound. No suspicious findings to account for patient's ?? symptoms. ? Electronically authenticated by: TASHI ??COLUMBA ?? Date: 01/15/2024 ??11:42 ? Dictated By: ?Tashi Santizo M.D. ? Signed By: ?01/15/24 1144 ? DD/ 1142 ? TD/TT: ? Coremaker Bench: Procedure Note Radiology, Radiologist, MD - 01/15/2024 [place] [address] Ultrasound Report Signed Patient: DRISS COPE MMR#: [id number] : 1995Acct:[id number] Age/Sex: 28 / FADM Date: 01/15/24 Loc: [facility] Attending Dr: Jony Ppo D.O. Ordering Physician: Jony Pop D.O. Date of Service: 01/15/24 Procedure(s): US pelvis w/ transvaginal Accession Number(s): [id number] cc: Jony Pop D.O.; Physician,Non-Staff M.Mark Anthony The [address] [address] Patient Name: DRISS COPE MRN: [id number] date: 1995 Sex: F Assigned Patient Location: [facility] Current Patient Location: [facility] Accession/Order Number: [id number] Exam Date: 01/15/2024 07:57 Report Date: 01/15/2024 [...] M.D. Signed By:01/15/24 1144 DD/ 1142 TD/TT: Coremaker Bench: Authorizing ProviderResult TypeResult StatusCorey Kiesha DOCLINISYNC IMAGINGFinal Result documented in this encounter Visit Diagnoses Not on filedocumented in this encounter Care Teams Team MemberRelationshipSpecialtyStart DateEnd Date Cruz Rodríguez MD [address] [place] [id number] PCP - [facility]09/26/2112 Cruz Rodríguez MD [address] [place] [address] PCP - [facility] Cruz Rodríguez MD [address] [place] [id number] PCP - [facility] Eliceo Beltran DO [address] [place] [address] PCP - GeneralFamily Medicine02/14/24 Eliceo Beltran DO [address] [place] [address] PCP - [facility] [employer]07/27/2412 Zenobia [place] NP [address] [place] [address] Nurse PractitionerFamily Ijfzaykk79/10/235 Trista Thao NP [address] [place] [id number] Nurse PractitionerPulmonary Zlbaaxy01/10/235documented as of this encounter
--- OUTSIDE RECORDS SUMMARY | 2025-09-26 10:59 | XMS_ITS | CCD ---
Author Organization [facility] Care Team Providers Care Hunter Name Role Phone Unavailable Unavailable OPAL LARA Referring Unavailable DENNY RODRÍGUEZ Primary Care Unavailable OPAL LARA Referring Unavailable DENNY RODRÍGUEZ Primary Care Unavailable DENNY RODRÍGUEZ Primary Care Physician Domo Hodges Unavailable PAOLO DIALLO Attending Unavailable KATHE RYDER Admitting Unavailable KATHE RYDER Attending Unavailable Denny Rodríguez MD Primary Care Provider Denny Rodríguez MD Unavailable Denny Rodríguez MD Primary Care Provider [phone] Denny Rodríguez MD Unavailable Kita MANAGER MANAGING, Zenobia Unavailable Keesha MANAGER MANAGING, Trista R Unavailable Denny Rodríguez MD Primary Care Provider CHARLENE RODRIGUEZ Referring Unavailable RODRÍGUEZ, DENNY SAHIL Primary Care Unavailable CHARLENE RODRIGUEZ Attending Unavailable RODRÍGUEZ, DENNY SAHIL Referring Unavailable RODRÍGUEZ, DENNY SAHIL Primary Care Unavailable CHARLENE RODRIGUEZ Attending Unavailable RODRÍGUEZ, DENNY SAHIL Primary Care Unavailable RODRÍGUEZ, DENNY SAHIL Primary Care Unavailable BILLCHARLENE JIMENEZ Attending Unavailable REAPER, JIHAN Referring Unavailable REAPER, JIHAN Attending Unavailable RODRÍGUEZ, DENNY SAHIL Primary Care Unavailable RODRÍGUEZ, DENNY SAHIL Primary Care Unavailable REAPER, JIHAN Attending Unavailable Unavailable Primary Care Provider UnavailEliceo Gibbons DO Primary Care Provider ELICEO MALONEY Primary Care Physician Unavailab Denny Ross MD Primary Care Provider [phone] Kiesha DO, Nathan Attending Provider [phone] Kiesha, Nathan Admitting Unavailable Kiesha, Nathan Attending Unavailable Denny Rodríguez Primary Care Unavailable KIESHA, Nathan R Attending Unavailable KIESHA, Nathan R Referring Unavailable KIESHA, Nathan R Admitting Unavailable KIESHA, Nathan R Attending Unavailable KIESHA, Nathan R Admitting Unavailable Kaftan DO Eliceo R Unavailable [phone] Yomaira BELTRAN Attending Unavailable KAFTANoYmaira Admitting Unavailable KIESHA, Nathan R Attending Unavailable KIESHA, Nathan R Admitting Unavailable KIESHA, Nathan R Admitting Unavailable KIESHA, Nathan R Attending Unavailable KAYomaira BUNDY Admitting Unavailable KAFTANYomaira Attending Unavailable KAYomaira BUNDY Admitting Unavailable KAFTAN, Yomaira COOPER Attending Unavailable Denny Rodríguez MD Primary Care Provider [phone] STEPH KEANE Attending Unavailable STEPH KEANE Admitting Unavailable Yomaira BELTRAN Attending Unavailable KAYomaira BUNDY Admitting Unavailable KIESHA, Nathan R Consulting Unavailable KIESHA, DO Nathan R Consulting Unavailable KIESHA, Nathan R Consulting Unavailable KIESHA, Nathan R Attending Unavailable KIESHA, Nathan R Admitting Unavailable ANA LAURA KEANE Attending Unavailable ELSA, ANA LAURA TYSON Admitting Unavailable KERLINE AUGUSTIN Attending Unavailable KIESHA, NATHAN R Referring Unavailable RODRÍGUEZDENNY Primary Care Unavailable MINE DENISE Attending Unavailable KIESHA, NATHAN R Referring Unavailable RODRÍGUEZDENNY Primary Care Unavailable Denny Rodríguez MD Primary Care Provider [phone] KIESHA, NATHAN R Referring Unavailable DENNY RODRÍGUEZ Primary Care Unavailable MADHURI MONROY Attending Unavailable DENNY RODRÍGUEZ Referring Unavailable DENNY RODRÍGUEZ Primary Care Unavailable ELICEO BELTRAN Attending Unavailable KIESHA, NATHAN Attending Unavailable KIESHA, NATHAN Attending Unavailable KIESHA, NATHAN Attending Unavailable KIESHA, NATHAN Attending Unavailable ELICEO BELTRAN Attending Unavailable KIESHA, NATHAN Attending Unavailable STEPH KEANE Attending Unavailable STEPH KEANE Attending Unavailable NATHAN POP Attending Unavailable Denny Rodríguez MD Unavailable Denny Rodríguez MD Primary Care Provider [phone] Denny Rodríguez MD Unavailable [phone] Kita MANAGER MANAGING, Zenobia Unavailable Keesha MANAGER MANAGING, Trista R Unavailable Allergies Allergy ClassificationReported Allergen(s)Allergy TypeDate of OnsetReaction(s) Facility (4 sources)No Known Medication Allergies; Translations: [No Known Medication Allergies]Propensity to adverse reactions (disorder)[facility] Repository Medications Current Medications MedicationDrug Class(es)DatesSig (Normalized)Sig (Original)acetaminophen 325 mg / butalbital 50 mg / caffeine 40 mg oral tablet (14 sources)Barbiturate, Central Nervous System Stimulant, MethylxanthineStart: 02-19-2024 End: 87-21-2448hync 1 tablet by mouth every six hours for headache fudwgooicw-tyqynlyhwrwfl-mugtvzfk 50-325-40 MG tablet Indications: Other migraine without status migrainosus, not intractable Take 1 tablet by mouth every 6 (six) hours if needed for headaches 20 tablet 02/19/2024 05/01/2025 Discontinuedatenolol 25 mg oral tablet (4 sources)beta-Adrenergic BlockerStart: 56-66-0233qsud 1 mg by mouth once daily atenolol 25 mg Tab mg tab(s), Oral, Daily, Refills(s) 0 Start Date: 02/02/21 Status: OrderedStart: 08-06-2017 End: 45-30-3544zwik 1 tablet by mouth once dailyAtenolol 50 mg tablet Discontinued 50 MG PO Daily August 06, 2017 12:00am October 16, 2018 3 :34pmbaclofen suppository 10 mg (CPD) (8 sources)Start: 83-34-8441ifhqdsxy suppository 10 mg (CPD) Indications: High- tone pelvic floor dysfunction , Chronic pelvic pain in female Unwrap and insert one suppository vaginally daily at bedtime. 30 Suppository 2 08/24/2023 Active Comment on above:Unwrap and insert one suppository vaginally daily at bedtime. Blood Glucose Monitoring Suppl (D-Care Glucometer) w/Device kit (15 sources)Start: 08-20-2025 End: 87-71-1489Vtimr Glucose Monitoring Suppl (D-Care Glucometer) w/Device kit Indications: Gestational diabetes mellitus (GDM), antepartum, gestational diabetes method of control unspecified ([facility]) , Elevated glucose tolerance test 1 kit Daily Use four times daily to check FSBS. In the morning prior to breakfast & 1 hour after each meal for a total of 4times daily. 1 kit 08/20/2025 08/20/2026 Activecephalexin 500 mg oral capsule (6 sources)Cephalosporin AntibacterialStart: 02-14-2021 End: 17-99-6367bzlq 1 capsule by mouth every twelve hoursKeflex 500 mg Cap 500 mg = 1 cap(s), Oral, q12hr, X 7 day(s), # 14 cap(s), Refills(s) 0 Start Date: 07/14/22 Stop Date: 07/21/22 Status: OrderedStart: 03-14-2019 End: 21-43-1336ahay 1 capsule by mouth every twelve hoursCephalexin (Keflex) 500 mg capsule Discontinued 500 MG PO Q12H 14 7 March 14, 2019 12:00am August 04, 2019 8:18amcyclobenzaprine hydrochloride 5 mg oral tablet (20 sources)Muscle RelaxantStart: 12-30-2024 End: 46-03-3581feyh 1 tablet by mouth in the morning, [...] 30 tablet 12/30/2024 01/09/2025 ActiveStart: 05-01-2023 End: 26-03-8190wbrl 1 tablet by mouth at bedtime as neededcyclobenzaprine (FLEXERIL) 5 mg tablet Indications: Dysmenorrhea , Chronic pelvic pain in female Take 1 tablet by mouth at bedtime as needed. 30 tablet 1 05/01/2023 ActiveStart: 50-76-2364vdoj 1 tablet by mouth three times daily as needed for muscle spasms cyclobenzaprine 10 mg Tab 10 mg = 1 tab(s), Oral, TID, PRN for spasm, # 30 tab(s), Refills(s) 0, Pharmacy: [facility], 157, cm, 01/23/22 7:20:00 EST, Height/Length Dosing, 55, kg, 01/23/22 7:20:00 EST, Weight Dosing Start Date: 01/23/22 Status: Ordered Quantity: 30.0 Unit: tab(s) Repeat number: 1 Comment on above:Take 1 tablet by mouth at bedtime as needed.cyproheptadine hydrochloride 4 mg oral tablet (10 sources)Start: 81-86-3777orfh 1 mg by mouth three times dailycyproheptadine 4 mg Tab mg tab(s), Oral, TID, Refills(s) 0 Start Date: 02/02/21 Status: Ordered Repeat number: 1Dasetta oral tablet (1 source)Start: 34-00-4688tcpy 1 tablet by mouth once dailyDasetta oral tablet 1 tab(s), Oral, Daily, Refill(s) 0, control/menstrual regulation Start Date: 11/23/16 Status: Ordereddocusate sodium 100 mg oral capsule (7 sources)Start: 11-30-2022 End: 94-58-0628fsap 1 capsule by mouth twice daily as needed for constipation Docusate Sodium (DSS) 100 MG capsule Take 1 capsule (100 mg) by mouth 2 times daily as needed for constipation (Vaginal Delivery) for up to 10 days. 60 capsule 0 12/01/2022 12/31/2022 ActiveStart: 07-14-2022 End: 32-76-7334neew 1 capsule by mouth twice dailyColace 100 mg Cap 100 mg = 1 cap(s), Oral, BID, X 10 day(s), # 20 cap(s), Refills(s) 0 Start Date: 07/14/22 Stop Date: 07/24/22 Status: Orderedelagolix 150 mg oral tablet (13 sources)Start: 07-16-2023 End: 91-58-0111imaj 1 tablet by mouth once dailyelagolix (ORILISSA) 150 mg tablet Take 1 tablet (150 mg) by mouth once daily. 30 tablet 11 07/16/2023 07/15/2024 ActiveStart: 02-09-7836lqvo 1 tablet by mouth twice dailyOrilissa 200 MG Oral Tablet take 1 tablet by mouth twice a day Quantity: 60 Refills: 4 Ordered: 09-Feb-2022 Charlene Rodriguez DO Start : 09-Feb-2022 ActiveComment on above:Take 1 tablet (150 mg) by mouth once daily.ergocalciferol 0.05 mg oral capsule (1 source)Provitamin D2 CompoundStart: 93-05-3852Kxgtxwg D2 2000 intl units oral capsule Oral, Daily, Refills(s) 0 Start Date: 02/02/21 Status: OrderedEthinyl Estradiol / Levonorgestrel (8 sources)Progestin, Estrogen, Progestin-containing Intrauterine DeviceStart: 04-03-2024 End: 38-48-0708tlxgmqkawenout-ethinyl estradiol (Jolessa) 0.15-0.03 MG tablet Indications: Uses control TAKE1 TABLET BY MOUTH EVERY MORNING 91 tablet 3 04/03/2024 08/18/2024 Discontinued (Other)Start: 95-03-7037wgxqbnhqtnywzc- ethinyl estradiol (Jolessa) 0.15-0.03 MG tablet Indications: Uses control TAKE1 TABLET BY MOUTH EVERY MORNING 91 tablet 3 04/03/2024 ActiveStart: 01-10-2024 End: 26-74-1285btoc 1 tablet by mouth in the morning, then take 1 tablet by mouth once dailylevonorgestrel-ethinyl estradiol (Jolessa) 0.15-0.03 MG tablet Indications: Uses control Take1 tablet by mouth in the morning. Take 1 tablet by mouth daily. 90 tablet 0 01/10/2024 04/09/2024 Activeethinyl estradiol 0.035 mg / norgestimate 0.25 mg oral tablet (4 sources)Progestin, EstrogenStart: 83-13-5070idofwskgebca-ethinyl estradiol (Ortho-Cyclen) 0.25-35 MG-MCG tablet 1 (one) time each day at the same time. 0 01/15/2023 ActiveStart: 72-09-1015hbnw 1 tablet by mouth once dailyNorgestimate- Ethinyl Estradiol 0.25-35 mg-mcg tablet Active 1 TAB PO Daily August 04, 2019 12:00amMono-Linyah 0.25-35 MG-MCG Oral for 28 Not-TakinghydrOXYzine hydrochloride 25 mg oral tablet (10 sources)AntihistamineStart: 60-76-1482fwuy 1 mg by mouth four times daily hydrOXYzine hydrochloride 25 mg Tab mg tab(s), Oral, QID, Refills(s) 0 Start Date: 02/02/21 Status: Ordered Repeat number: 1hyoscyamine sulfate 0.125 mg oral tablet (10 sources)Start: 14-68-9948wsex 1 tablet by mouth every six hoursLevsin 0.125 mg SL Tab 0.125 mg = 1 tab(s), Oral, q6hr, # 20 tab(s), Refills(s) 1, Pharmacy: [facility], 161, cm, 03/10/21 11:21:00 EDT, Height/Length Dosing, 56, kg, 03/10/21 11:21:00 EDT, Weight Dosing Start Date: 03/10/21 Status: Ordered Quantity: 20.0 Unit: tab(s) Repeat number: 2ibuprofen 600 mg oral tablet (15 sources)Nonsteroidal Anti-inflammatory DrugStart: 01-23-2022 End: 58-97-9019dlek 1 tablet by mouth every six hoursibuprofen 600 mg Tab 600 mg = 1 tab(s), Oral, q6hr, # 40 tab(s), Refills(s) 0, [facility]: [facility], 157, cm, 01/23/22 7:20:00 EST, Height/Length Dosing, 55, kg, 01/23/22 7:20:00 EST, WeightDosing Start Date: 01/23/22 Status: Ordered Quantity: 40.0 Unit: tab(s) Repeat number: 1insulin glargine-yfgn (Semglee-yfgn) 100 UNIT/ML pen (3 sources)Start: 72-39-7566xgyecdw glargine-yfgn (Semglee-yfgn) 100 UNIT/ML pen Inject 13 Units under the skin at bedtime 09/15/2025 Activeinsulin glargine-yfgn 100 unit/mL (3 mL) insulin pen (11 sources)Start: 93-88-3301uevyomx glargine-yfgn 100 unit/mL (3 mL) insulin pen Indications: Essential hypertension affecting in third trimester Prime with 2 units and give 5 units every morning and 20 units subQ at bedtime. 15 mL 3 09/21/2025 ActiveStart: 09-17-2025 End: 59-36-8031yexgusc glargine-yfgn 100 unit/mL (3 mL) insulin pen Indications: Essential hypertension affecting in third trimester Prime with 2 units and give 5 units every morning and 17 units subQ at bedtime. 15 mL 3 09/17/2025 09/21/2025 DiscontinuedStart: 18-42-5939mugpstf glargine-yfgn 100 unit/mL (3 mL) insulin pen Indications: Essential hypertension affecting in third trimester Prime with 2 units and give 5 units every morning and 17 units subQ at bedtime. 15 mL 3 09/17/2025 ActiveStart: 09-15-2025 End: 88-16-2441kaweoii glargine-yfgn 100 unit/mL (3 mL) insulin pen Indications: Essential hypertension affecting in third trimester Prime with 2 units and give 17 units subQ at bedtime. 15 mL 3 09/15/2025 09/17/2025 Discontinued Start: 80-83-6589uqokwaa glargine-yfgn 100 unit/mL (3 mL) insulin pen Indications: Essential hypertension affecting in third trimester Prime with 2 units and give 17 units subQ at bedtime. 15 mL 3 09/15/2025 ActiveStart: 09-10-2025 End: 61-58-7860uizjkss glargine-yfgn 100 unit/mL (3 mL) insulin pen Indications: Essential hypertension affecting in third trimester Prime with 2 units and give 13 units subQ at bedtime. 15 mL 3 09/10/2025 09/15/2025 Discontinued Start: 72-61-6793hvfqyqh glargine-yfgn 100 unit/mL (3 mL) insulin pen Indications: Essential hypertension affecting in third trimester Prime with 2 units and give 13 units subQ at bedtime. 15 mL 3 09/10/2025 ActiveStart: 09-04-2025 End: 57-91-1853elxxcj 2 [IU] by subcutaneous injection once, then inject 10 [IU] by subcutaneous injection at bedtimeinsulin glargine-yfgn 100 unit/mL (3 mL) insulin pen Indications: Diet controlled gestational diabetes mellitus (GDM) in second trimester , Essential hypertension affecting in third trimester Prime with 2 units and give 10 units subQ at bedtime. 15 mL 3 09/04/2025 09/10/2025 DiscontinuedStart: 04-47-3845nrnxbr 2 [IU] by subcutaneous injection once, then inject 10 [IU] by subcutaneous injection at bedtimeinsulin glargine- yfgn 100 unit/mL (3 mL) insulin pen Indications: Diet controlled gestational diabetes mellitus (GDM) in second trimester , Essential hypertension affecting in third trimester Prime with 2 units and give 10 units subQ at bedtime. 15 mL 3 09/04/2025 Activeisopropyl alcohol 0.7 ml/ml medicated pad (15 sources)Start: 87-20-6510Cvbuhtu Swabs (Alcohol Prep Pad) 70 % pads Indications: Gestational diabetes mellitus (GDM), antepartum, gestational diabetes method of control unspecified ([facility]) , Elevated glucose tolerance testApply 1 Pad topically Daily Use four times daily to check FSBS. 150 each 3 08/20/2025 Activeiv contrast (will be provided with radiology test) (12 sources)Start: 50-62-6984ks contrast (will be provided with radiology test) [...] 200 mg oral tablet (20 sources)beta-Adrenergic BlockerStart: 80-31-3365cutq 1 tablet by mouth in the morninglabetalol (Normodyne) 200 MG tablet Indications: Gestational Hypertension Take 1 tablet (200 mg) bymouth in the morning and 1 tablet (200 mg) before bedtime. 60 tablet 3 09/03/2025 ActiveStart: 07-30-2025 End: 77-63-2328napz 1 tablet by mouth in the morninglabetalol (Normodyne) 100 MG tablet Indications: Hypertension, unspecified type Take 1 tablet (100 mg) by mouth in the morning and 1 tablet (100 mg) before bedtime. 60 tablet 5 07/30/2025 09/03/2025 DiscontinuedStart: 11-28-2022 End: 82-92-3143ztdmkryaf (Normodyne,Trandate) injection 20 mgStart: 11-28-2022 End: 06-99-8406initjpwml (Normodyne,Trandate) injection 20 mgStart: 11-28-2022 End: 61-42-4888ecgvgghug (Normodyne,Trandate) 5 MG/ML injection - Pyxis ADS Override Pulltake 2 tablets by mouth three times dailylabetaloL (NORMODYNE) 100 mg tablet Take 2 tablets (200 mg total) by mouth 3 (three) times a day. Active magnesium oxide 400 mg oral tablet (9 sources)Start: 05-01-2025 End: 39-99-0041tfjf 1 tablet by mouth once dailymagnesium oxide (Mag-Ox) 400 MG tablet Indications: headache in first trimester ([facility])Take 1 tablet (400 mg) by mouth Daily 30 tablet 3 05/01/2025 05/31/2025 Activemeloxicam 15 mg oral tablet (15 sources)Nonsteroidal Anti-inflammatory DrugStart: 02-02-2021 End: 60-58-6516okrg 1 tablet by mouth once dailymeloxicam (Mobic) 15 MG tablet Indications: Chronic right shoulder pain , Scapular dyskinesis Take 1 tablet (15 mg) by mouth Daily 30 tablet 3 12/30/2024 05/01/2025 Ebzjekscflkh84 hr metoprolol succinate 25 mg extended release oral tablet (20 sources)beta-Adrenergic BlockerStart: 10-15-2024 End: 88-07-9827pzbd 1 tablet by mouth once dailymetoprolol succinate XL (Toprol- XL) 25 MG 24 hr tablet Indications: Hypertension, unspecified type Take 1 tablet by mouth daily 90 tablet 1 12/30/2024 ActiveStart: 08-79-9691jydb 1 tablet by mouth once dailymetoprolol succinate XL (Toprol-XL) 25 MG 24 hr tablet Indications: Hypertension, unspecified type (CMS/HCC) Take 1 tablet by mouth daily 90 tablet 1 04/23/2024 ActiveStart: 56-21-5399yzss 1 tablet by mouth once dailymetoprolol succinate XL (Toprol-XL) 25 MG 24 hr tablet Indications: Hypertension, unspecified type (CMS/HCC) Take 1 tablet by mouth daily 90 tablet 1 10/23/2023 ActiveStart: 02-27-2023 End: 90-76-7738mcmfzhbyeq succinate ER (TOPROL XL) 25 mg 24 hr tabletnaproxen 500 mg delayed release oral tablet (20 sources)Nonsteroidal Anti-inflammatory DrugStart: 68-13-6820nmhi 1 tablet by mouth twice dailynaproxen 500 mg oral enteric coated tablet 500 mg = 1 tab(s), Oral, BID, # 28 tab(s), Refills(s) 0 Start Date: 11/07/21 Status: Ordered Quantity: 28.0 Unit: tab(s) Repeat number: 1Start: 03-04-2021 End: 85-90-1620vlax 1 tablet by mouth twice dailynaproxen 500 mg Tab 500 mg = 1 tab(s), Oral, BID, Take one tab by mouth two times a day, # 14 tab(s), Refills(s) 0, [facility]acy: [facility], 157, cm, 03/04/21 7:22:00 EDT, Height/Length Dosing,52, kg, 03/04/21 7:22:00 EDT, Weight Dosing Start Date: 03/04/21 Status: Ordered Quantity: 14.0 Unit:tab(s) Repeat number: 1Start: 11-02-2018 End: 68-21-9894lxuw 1 tablet by mouth twice daily as [...] (5 sources)Dihydropyridine Calcium Channel BlockerStart: 11-28-2022 End: 41-79-4646MVNSlnhbpj XL (Procardia XL) 30 MG 24 hr tablet Take 1 tablet (30 mg) by mouth daily. Do not crush,chew, or split. Do not start before December 02, 2022. 90 tablet 0 12/02/2022 12/02/2023 Activenorethindrone acetate 5 mg oral tablet (20 sources)Start: 05-17-2023 End: 01-75-9762hhjk 2 tablets by mouth once dailynorethindrone (AYGESTIN) 5 mg tablet Take 2 tablets by mouth once daily. 60 tablet 5 01/03/2024 07/01/2024 ActiveStart: 04-11-2023 End: 40-86-4705hfmy 1 tablet by mouth once dailynorethindrone (AYGESTIN) 5 mg tablet Take 1 tablet by mouth once daily. 30 tablet 11 04/11/2023 ActiveStart: 81-99-4195nbjh 1 tablet by mouth once dailyNorethindrone Acetate [...] mg/ml rectal foam (2 sources)Start: 07-14-2022 End: 15-30-5686ysjo 15 g rectal route twice dailyProctoFoam 1% Foam apply, Rectal, BID for 7 day(s), 15 gm, Refill(s) 0 Start Date: 07/14/22 Stop Date: 07/21/22 Status: OrderedPrenatal Multivitamins with Vitamin B Complex, Vitamin C, Minerals and L-Methylfolate oral capsule (9 sources)Start: 24-97-0610Kpzyyqvn Multivitamins with Vitamin B Complex, Vitamin C, Minerals and L-Methylfolate oral capsule 1 cap(s), Oral, Daily, 30 cap(s), Refill(s) 0 Start Date: 07/14/22 Status: Ordered Quantity: 30.0 Unit: cap(s) Repeat number: 1Start: 83-90-1981Mblwpqmt Multivitamins with Vitamin B Complex, Vitamin C, Minerals and L-Methylfolate oral capsule 1 cap(s), Oral, Daily, 30 cap(s), Refill(s) 0 Start Date: 07/14/22 Status: OrderedPrenatal Vit-Fe Fumarate-FA ( Vitamin) 27-0.8 MG tablet (3 sources) Vit-Fe Fumarate-FA ( Vitamin) 27-0.8 MG tablet Take by mouth. 0 ActivePrenatal Vit-Fe Fumarate-FA ( Vitamins) 28-0.8 MG tablet (20 sources)Start: 05-01-2025 End: 51-66-3023ztka 1 tablet by mouth once dailyPrenatal Vit-Fe Fumarate-FA ( Vitamins) 28-0.8 MG tablet Indications: , unspecified gestational age ([facility]) , Encounter for supervision of normal first in first trimester([facility]) Take 1 tablet by mouth Daily 30 tablet 11 05/01/2025 05/01/2026 ActiveStart: 05-01-2025 End: 99-66-2744fvbv 1 tablet by mouth once dailyPrenatal Vit-Fe Fumarate-FA ( Vitamins) 28-0.8 MG tablet Indications: , unspecified gestational age , Encounter for supervision of normal first in first trimester Take 1 tablet by mouth Daily 30 tablet 11 05/01/2025 05/01/2026 Active SUMAtriptan 100 mg oral tablet (10 sources)Serotonin-1b and Serotonin-1d Receptor AgonistStart: 41-23-2695sxkg 1 mg by mouth onceImitrex 100 mg Tab mg tab(s), Oral, Once, Refills(s) 0 Start Date: 02/02/21 Status: Ordered Repeat number: 1Surgical Lubricant Jelly gel (12 sources)Start: 33-55-4589Cclrpdmm Lubricant Jelly gel For MRI Female Pelvis, MRI department to provide. Administer intra-vaginal Surgilube immediately prior the MRI procedure (total amount to patient toleranace). 1 g 0 05/17/2023 Active Comment on above:For MRI Female Pelvis, MRI department to provide. Administer intra-vaginal Surgilube immediately prior the MRI procedure (total amount to patient toleranace).tiZANidine 4 mg oral tablet (3 sources)Central alpha-2 Adrenergic AgonistStart: 11-05-0109spvf 1 mg by mouth every eight hourstiZANidine 4 mg Tab mg tab(s), Oral, q8hr, Refills(s) 0 Start Date: 02/02/21 Status: OrderedtraMADol hydrochloride 50 mg oral tablet (10 sources)Opioid AgonistStart: 34-03-3025ddgn 1 tablet by mouth every four hours as needed for paintraMADol (ULTRAM) 50 mg tablet Indications: Pelvic pain in female Take 1 tablet by mouth every 4 hours as needed for pain. 20 tablet 0 08/30/2023 ActiveStart: 72-62-0100urat 1 tablet by mouth every six hourstraMADol HCl - 50 MG Oral Tablet TAKE 1 TABLET Every 6 hours Quantity: 20 Refills: 0 Ordered: 18-Aug-2020 Charlene Rodriguez DO Start : 18-Aug-2020 ActiveStart: 03-12-2019 End: 69-44-2542sjqa 1 tablet by mouth every four hours as needed for pain Tramadol 50 mg tablet Discontinued 50 MG PO Q4H as needed for pain 30 5 March 12, 2019 12:00am August 04, 2019 8:19amComment on above:Take 1 tablet by mouth every 4 hours as needed for pain.Vitamin D2 2000 intl units oral capsule (9 sources)Start: 61-46-7634wcbj 1 capsule by mouth once dailyVitamin D2 2000 intl units oral capsule Oral, Daily, Refills(s) 0 Start Date: 02/02/21 Status: Ordered Repeat number: 1Start: 20-99-6625Eqigrtd D2 2000 intl units oral capsule Oral, Daily, Refills(s) 0 Start Date: 02/02/21 Status: Ordered Completed/Discontinued Medications MedicationDrug Class(es)DatesSig (Normalized)Sig (Original)acetaminophen 325 mg oral tablet (4 sources)Start: 11-30-2022 End: 67-86-6977xmls 1 tablet by mouth every six hours as needed for twtx222 mg, Oral, Every 6 hours PRN, mild pain (1-3), Starting on Constance 11/30/22 at 0422 Give in addition to any other pain medication ordered at same time for any pain indication. Maximumdose of acetaminophen is 4000 mg from all sources in 24 hours. Alternate ibuprofen and acetaminophen every 3 hours.Start: 11-28-2022 End: 77-40-4257wyqhdsdwnnzyv (Tylenol) tablet 1,000 mgacetaminophen 300 mg / codeine phosphate 30 mg oral tablet (4 sources)Opioid AgonistStart: 01-19-2025 End: 34-14-0306qzur 1 tablet by mouth every six hours for painacetaminophen- codeine (Tylenol w/ Codeine #3) 300-30 MG tablet Indications: Pain in female genitalia on intercourse , Endometriosis Take 1 tablet by mouth every 6 (six) hours if needed for severe pain for up to 5 days 20 tablet 01/19/2025 01/24/2025 ExpiredStart: 07-22-2024 End: 58-74-0195tzbb 1 tablet by mouth every six hours for painacetaminophen- codeine (Tylenol w/ Codeine #3) 300-30 MG tablet Indications: Dysmenorrhea, unspecified Take 1 tablet by mouth every 6 (six) hours if needed for severe pain for up to 5 days 20 tablet 07/22/2024 07/27/2024 Activeascorbic acid 500 mg oral tablet (5 sources)Vitamin CStart: 10-25-2018 End: 17-71-2345gkbh 2 tablets by mouth in the morningASCORBIC ACID WITH ISAURO HIPS 500 MG tablet Take 2 tablets (1,000 mg total) by mouth in the morning.0 10/25/2018 09/04/2025 Discontinued ()aspirin 325 mg / butalbital 50 mg / caffeine 40 mg oral capsule (11 sources)Platelet Aggregation Inhibitor, Barbiturate, Nonsteroidal Anti- inflammatory Drug, Central Nervous System Stimulant, Methylxanthine End: 61-77-0134zkqu 1 capsule by mouth every four hours as needed dwgwxomsci-kroafqd-rgmefxwd (Fiorinal) 50-325-40 MG capsule Take 1 capsule [...] spray (2 sources)Standardized Chemical AllergenStart: 11-30-2022 End: 93-37-5542Vgtshba, As needed, pain, , Starting on Sun11/30/22 at 0608, Apply to perineal area. Patient is capable and may self administer at bedside.betamethasone 3 mg/ml / betamethasone acetate 3 mg/ml injectable suspension (2 sources)CorticosteroidStart: 11-28-2022 End: 42-09-5301qqaugidrcdtuo acetate-betamethasone sodium phosphate (Celestone) injection 12 mgcalcium chloride 0.0014 meq/ml / potassium chloride 0.004 meq/ml / sodium chloride 0.103 meq/ml / sodium lactate 0.028 meq/ml injectable solution (2 sources)Start: 11-28-2022 End: 66-00-8592gzeo 125 mL intravenously every elhj788 mL/hr, IntraVENous, Continuous, Starting on Sun11/28/22 at 0100, Pre-Deliverycetirizine hydrochloride 10 mg oral tablet (17 sources)Histamine-1 Receptor AntagonistStart: 06-09-2025 End: 76-53-0443rtst 1 tablet by mouth once dailycetirizine (ZyrTEC ALLERGY) 10 MG tablet Indications: Allergy, sequela Take 1 tablet (10 mg) by mouth Daily 30 tablet 11 06/09/2025 07/15/2025 DiscontinuedchlordiazePOXIDE hydrochloride 5 mg / clidinium bromide 2.5 mg oral capsule (1 source)Anticholinergic, BenzodiazepineStart: 48-10-0508qnsv 1 capsule by mouth every eight hourschlordiazePOXIDE-Clidinium 5-2.5 MG 1 capsule before meals Orally Three times a day for 30 day(s) May, Not-Taking chlorhexidine gluconate 20 mg/ml medicated pad (2 sources)Start: 11-28-2022 End: 39-19-4177nmkph 1 dose topically every six hoursTopical, Every 6 hours, First dose on Sun11/28/22 at 0100, Pre-Delivery Apply to the affected area.&a mp;nbsp; Clean entire abdomen.cholecalciferol 0.125 mg oral capsule (5 sources)Vitamin DStart: 10-25-2018 End: 92-17-2901udpu 1 capsule by mouth in the morningcholecalciferol, vitamin D3, (VITAMIN D3) 5,000 units capsule Take 1 capsule (5,000 Units total) bymouth in the morning. 0 10/25/2018 09/04/2025 Discontinued ()desogestrel 0.15 mg / ethinyl estradiol 0.03 mg oral tablet (11 sources)Progestin, EstrogenStart: 07-22-2024 End: 70-65-8145xtefgoprxsm-ethinyl estradiol (Apri) 0.15-30 MG-MCG tablet Indications: Dysmenorrhea, unspecified Take 1 tablet by mouth Daily 21 tablet 12 10/20/2024 01/19/2025 Discontinued (Other)diphenhydrAMINE (BENADryl) injection 25 mg (2 sources)Start: 11-30-2022 End: 39-37-9608olpp 25 mg intravenously every six hours as neededdiphenhydrAMINE (BENADryl) injection 25 mgNorethindrone-E.Estradiol-Iron (1 source)EstrogenStart: 10-17-2017 End: 49-89-3069zeyg 1 tablet by mouth once dailyNorethindrone-E.Estradiol-Iron (Lo Loestrin Fe) 1 mg-10 mcg (24)/10 mcg (2) tablet Discontinued 1 TAB PO Daily October 17, 2017 1:00am March 12, 2019 6:15amEthinyl Estradiol / Norethindrone (7 sources)EstrogenStart: 12-01-2018 End: 05-32-8605apyd 0.05 ug by mouth once in the eveningnorethindrone ac-eth estradiol (MICROGESTIN 1/20) 1-20 mg-mcg per tablet Take 1 tablet by mouth in t he evening. 0 12/01/2018 09/04/2025 Discontinued ()Start: 12-01-2018 take 0.05 ug by mouth once in the eveningnorethindrone ac-eth estradiol (MICROGESTIN 1/20) 1-20 mg-mcg per tablet Take 1 tablet by mouth in the evening. 0 12/01/2018 ActiveStart: 78-15-4049kkmh 1 tablet by mouth once dailyDasetta oral tablet 1 tab(s), Oral, Daily, Refill(s) 0, control/menstrual regulation Start Date: 11/23/16 Status: Orderedfamotidine 20 mg oral tablet (2 sources)Histamine-2 Receptor AntagonistStart: 11-30-2022 End: 07-67-6765jfxm 20 mg by mouth twice daily as needed for gastroesophageal reflux oaevgnb75 mg, Oral, 2 times daily PRN, heartburn, Starting on Constance 11/30/22 at 0608, Renal dose per pharmacy for peptic ulcer prophylaxis.ferrous sulfate 325 mg oral tablet (8 sources)Start: 11-30-2022 End: 31-87-8835rozs 325 mg by mouth twice daily at mtoxkzrr776 mg, Oral, 2 times daily with meals, First dose on Constance 11/30/22 at 0800, Start if Hgb le ss than 10. End: 76-86-1964ekfv 1 tablet by mouth in the morningFerrous Sulfate (IRON PO) Take 1 tablet by mouth in the morning. 09/16/2025 Discontinuedtake 1 tablet by mouth in the morningFerrous Sulfate (IRON PO) Take 1 tablet by mouth in the morning. ActiveFLUoxetine 20 mg oral capsule (17 sources)Serotonin Reuptake InhibitorStart: 46-60-7340azlr 1 capsule by mouth once dailyFLUoxetine HCl - 20 MG Oral Capsule TAKE 1 CAPSULE Daily Quantity: 30 Refills: 11 Ordered: 02-Jun-2021 Charlene Rodriguez DO Start : 02-Jun-2021 Active Start: 11-02-2018 End: 03-27-8919nxnj 1 capsule by mouth once dailyFluoxetine (Prozac) 20 mg capsule Discontinued 20 MG PO Daily November 02, 2018 1:00am August 04, 2019 8:19amtake 1 capsule by mouth once dailyFLUoxetine (PROZAC) 10 mg capsule Take 10 mg by mouth once daily. 0 ActiveComment on above:Take 10 mg by mouth once daily.fluticasone propionate 0.05 mg/actuat metered dose nasal spray (16 sources)CorticosteroidStart: 06-22-2025 End: 42-86-7189kxnb 1 spray(s) nasal route once dailyfluticasone (Flonase) 50 MCG/ACT nasal spray Indications: Sinusitis, unspecified chronicity, unspecified location Administer 1 spray into each nostril Daily Shake gently. Before first use, prime pump. After use, clean tip and replace cap. 16 g 12 06/22/2025 07/15/2025 Discontinued End: 91-70-3463tehi 1 spray(s) nasal route in the morningfluticasone (Flonase) 50 MCG/ACT nasal spray Administer 1 spray into affected nostril(s) in the morn ing. 09/16/2025 Discontinued End: 26-18-4602pajw 1 spray(s) nasal route in the morningfluticasone propionate (FLONASE) 50 mcg/actuation nasal spray Administer 1 spray into each nostril in the morning. 09/04/2025 Discontinued ()lanolin 1000 mg/ml topical cream (2 sources)Start: 11-30-2022 End: 71-32-9925Rqzaozc, As needed, dry skin, nipple discomfort, Starting on Sun11/30/22 at 0608, Apply to affected area.500 ml magnesium sulfate 40 mg/ml injection (4 sources)Start: 11-28-2022 End: 32-94-8095vjiodmqoi sulfate 20 GM/500ML infusionStart: 11-28-2022 End: 62-37-1624wbtzfkoqm sulfate 20 GM/500ML infusion - Pyxis ADS Override Pull metoclopramide 10 mg oral tablet (2 sources)Dopamine-2 Receptor AntagonistStart: 74-22-5439ivrq 1 tablet by mouth every eight hoursReglan 10 MG 1 tablet before meals Orally tid for 30 day(s) March, Not-TakingmiSOPROStol 0.2 mg oral tablet (2 sources)Prostaglandin E1 AnalogStart: 11-30-2022 End: 35-78-6807xkQXCAVOsea (Cytotec) tablet 1,000 mcgStart: 11-30-2022 End: 78-31-7632hnPMSZUEaia (Cytotec) tablet 1,000 mcgmiSOPROStol (Cytotec) split tablet 25 mcg (2 sources)Start: 11-28-2022 End: 67-20-8337cjtq 1 tablet vaginal route every four hoursmiSOPROStol (Cytotec) split tablet 25 mcg1 ml morphine sulfate 4 mg/ml injection (4 sources)Opioid AgonistStart: 11-28-2022 End: 01-87-2607mkjknwah sulfate (PF) injection 4 mgnitrofurantoin, macrocrystals 25 mg / nitrofurantoin, monohydrate 75 mg oral capsule (6 sources)Nitrofuran AntibacterialStart: 64-71-7446Tgzczzzdojtrsr Monohyd Macro 100 MG Oral Capsule TAKE 1 CAPSULE Other Please take one capsule aftersexual intercourse to prevent UTI Quantity: 30 Refills: 11 Ordered: 01-Apr-2021 Teri Chau MD Start : 01-Apr-2021 Active2 ml ondansetron 2 mg/ml injection (12 sources)Serotonin-3 Receptor AntagonistStart: 11-29-2022 End: 39-28-8836lywh 4 mg intravenously every six hours as needed for nausea and vomitingondansetron (Zofran) injection 4 mgStart: 25-91-6244rbte 1 tablet by mouth every six hours as needed for nauseaZofran 4 mg Tab 1 tab(s), Oral, q6hr, PRN Nausea, # 8, Refills(s) 0 Start Date: 07/14/22 Status: Ordered Quantity: 8.0 Unit: Repeat number: 1Start: 87-67-1965penb 1 tablet by mouth three times daily Zofran 4 MG 1 tablet Orally THREE TIMES A DAY for 30 day(s) May, Not-Takingondansetron ODT (Zofran-ODT) disintegrating tablet 4 mg (2 sources)Start: 11-30-2022 End: 66-35-5845cavn 1 tablet by mouth every eight hours [...] for 1 hour. Then discontinue.Start: 11-29-2022 End: 89-50-2212fmixykwb (Pitocin) 30 units in 500 mL infusionStart: 11-29-2022 End: 27-06-6890kmljiwga (Pitocin) 30 units in 500 mL infusionphenazopyridine hydrochloride 200 mg oral tablet (10 sources)Start: 83-38-7894hckt 1 tablet by mouth three times dailyPyridium 200 mg Tab 200 mg = 1 tab(s), Oral, TID, Take one tab by mouth three times a day for threedays, # 9 tab(s), Refills(s) 0, [facility]: [facility], 157, cm, 03/04/21 7:22:00 EDT, Height/Length Dosing, 52, kg, 03/04/21 7:22:00 EDT, Weight Dosing Start Date: 03/04/21 Status: Ordered Quantity: 9.0 Unit: tab(s) Repeat number: 1predniSONE 10 mg oral tablet (3 sources)Start: 09-10-2023 End: 48-21-8207aqln 2 tablets by mouth twice daily, then [...] 09/10/2023 01/10/2024 Discontinued (Therapy completed)Start: 03-12-2019 End: 57-81-7482lokb 3 tablets by mouth once daily at mealtimePrednisone 20 mg tablet Discontinued 60 MG PO Daily 9 March 12, 2019 12:00am August 04, 2019 8:18am administer with food or milkpromethazine hydrochloride 12.5 mg oral tablet (13 sources)PhenothiazineStart: 05-25-2025 End: 07-60-2232tpat 1 tablet by mouth every six hours [...] as needed for nausea. 30 tablet 2 Discontinued End: 81-52-3878qlel 12.5 mg rectal route every six hours as needed for nausea and vomitingpromethazine (PHENERGAN) 12.5 mg suppository Insert 1 suppository (12.5 mg total) into the rectum every 6 (six) hours as needed for nausea or vomiting. 09/04/2025 Discontinued ()rizatriptan 5 mg disintegrating oral tablet (5 sources)Serotonin-1b and Serotonin-1d Receptor AgonistStart: 10-24-2018 End: 83-23-9905xysvyjeupyi WAYBILL CLERK (MAXALT-WAYBILL CLERK) 5 mg disintegrating tablet Dissolve 1 tablet (5 mg total) on tongue asneeded. 0 10/24/2018 09/04/2025 Discontinued ()5 ml sodium chloride 9 mg/ml injection (2 sources)Start: 11-28-2022 End: mL, IntraVENous, Every 12 hours scheduled (2 times per day), First dose on Sun11/28/22 at 0900, Pre-Deliveryvitamin b12 1 mg extended release oral tablet (5 sources)Vitamin B23Gjoto: 10-25-2018 End: 97-12-6326vdzl 1 tablet by mouth in the morningcyanocobalamin, vitamin B- 12, (VITAMIN B-12) 1,000 mcg tablet extended release Take 1 tablet (1 mg total) by mouth in the morning. 0 10/25/2018 09/04/2025 Discontinued ()witch yesi 500 mg/ml medicated pad (2 sources)Start: 11-30-2022 End: 07-32-2229Myiteoc, As needed, hemorrhoids, For perineal pain or discomfort, Starting on Sun11/30/22 at 0608, Apply to perineal area. Patient is capable and may self administer at bedside. Problems Active Problems Problem ClassificationProblemDateDocumented DateEpisodic/ChronicAllergic reactions (1 source)Allergic reaction; Translations: [Allergy, unspecified, initial encounter]96-45-3186DwareiznXjjsrzp on above:Problem List clean-up per request of Phys. EHR CmteAnxiety disorders (20 sources)Anxiety; Translations: [Anxiety state, unspecified]Onset: 10-08-2020 26-55-2139TbmlcdaLgvkamo on above:Problem List clean-up per request of Phys. EHR CmteCardiac dysrhythmias (20 sources)Paroxysmal tachycardia; Translations: [Paroxysmal tachycardia, unspecified]Onset: 593834-97-6018UayiszuNuqkqpiszsjap of surgical procedures or medical care (1 source)Postoperative retention of urine; Translations: [Other postprocedural complications and disorders of genitourinary system]50-73-8839UxhnhuhqTtpvcqx on above:Problem List clean-up per request of Phys. EHR CmteDiabetes mellitus without complication (2 sources)Abnormal glucose tolerance test; Translations: [Other abnormal glucose]54-06-1418BxrsyumiEvbvvjjh or abnormal glucose tolerance complicating ; childbirth; or the puerperium (20 sources)Gestational diabetes mellitus; Translations: [Gestational diabetes mellitus in , diet controlled]Onset: 824239-50-2390Uvjmphrv Endometriosis (20 sources)Endometriosis (clinical); Translations: [Endometriosis, site unspecified]Onset: 23-45-8269ThxddojUicbnbnob hypertension (20 sources)Hypertensive disorder; Translations: [Essential (primary) hypertension]Onset: 281423-42-8619NmlispeOxbhdeuyzhajb symptoms and ill- defined conditions (20 sources)Microscopic hematuria; Translations: [Nocturia]06-80-3676Pnzurlqn Comment on above:Problem List clean-up per request of Phys. EHR CmteHeadache; including migraine (20 sources)Migraine; Translations: [Migraine, unspecified, not intractable, without status migrainosus]Onset: 421253-27-9807PeayeivVjxairr on above: Problem List clean-up per request of Phys. EHR CmteHeadache; including migraine (14 sources)Headache; Translations: [Headache, unspecified]Onset: 01-31-2023 86-23-0351WwvtfzhnSjopuomuinp (1 source)Hemorrhoids; Translations: [Unspecified hemorrhoids]Onset: 07-14-2022 EpisodicHypertension complicating ; childbirth and the puerperium (18 sources)Hypertension complicating ; Translations: [Unspecified maternal hypertension, unspecified trimester]Onset: hronic Hypertension complicating ; childbirth and the puerperium (14 sources)Severe pre-eclampsia complicating childbirth; Translations: [Severe pre-eclampsia, third trimester]Onset: 15-31-8207PozrmxpmPvaty disorders and dislocations; trauma-related (20 sources)Disorder of left patellofemoral joint; Translations: [Patellofemoral disorders, left knee]Onset: 862927-91-1458TbhibhiYogxv disorders and dislocations; trauma-related (20 sources)Disorder of right patellofemoral joint; Translations: [Patellofemoral disorders, right knee]Onset: hronic Menstrual disorders (20 sources)Dysmenorrhea; Translations: [Dysmenorrhea, unspecified]Onset: 335044-16-6028FwkelhuWadhff and vomiting (1 source)Nausea and vomiting; Translations: [Nausea with vomiting, unspecified] EpisodicNonspecific chest pain (2 sources)Chest pain; Translations: [Chest pain, unspecified]85-08-8974Darbvmzg Comment on above:Problem List clean-up per request of Phys. EHR CmteNutritional deficiencies (20 sources)Vitamin D deficiency; Translations: [Vitamin D deficiency, unspecified]Onset: 412762-60-4621ElfzwwtLeuho acquired deformities (20 sources)Scoliosis deformity of spine; Translations: [Scoliosis, unspecified] Onset: 029670-82-0493XpsgwayZtrzw bone disease and musculoskeletal deformities (10 sources)Disorder of gkgc52-66-8534GznbfwwiNrpqecq on above:right shoulder right shoulderOther circulatory disease (1 source)Elevated blood-pressure reading without diagnosis of hypertension; Translations: [Elevated blood-pressure reading, without diagnosis of hypertension]Onset: 30-06-9632YpkgcxzmYbydz complications of ; puerperium affecting management of mother (1 source)Delayed AND/OR secondary hemorrhage; Translations: [Delayed and secondary hemorrhage]Onset: 88-33-7633GpjscghhCplud complications of (1 source)Finding related to ; Translations: [Other specified related conditions, unspecified trimester]Onset: 09-69-5201WwhtpmhrWtsbs complications of (1 source)Supervision of with other poor reproductive or obstetric history, unspecified trimester; Translations: [Supervision of with other poor reproductive or obstetric history, unspecified trimester]Onset: 61-67-4956LgwomkggKqeet connective tissue disease (1 source)Diastasis recti; Translations: [Separation of muscle (nontraumatic), other site]EpisodicOther female genital disorders (10 sources)Abnormal uterine swirkkhi24-11-2991NmkdustZypjr female genital disorders (1 source)Dyspareunia; Translations: [Other specified dyspareunia]ChronicOther female genital disorders (20 sources)Pain in female genitalia on intercourse; Translations: [Unspecified dyspareunia]Onset: 999956-86-7455KkldwbeTauja female genital disorders (1 source)Unspecified dyspareunia; Translations: [Unspecified dyspareunia]Onset: 93-71-1878RweynjwMqlfl female genital disorders (2 sources)Pelvic floor dysfunction; Translations: [Other specified conditions associated with female genital organs and menstrual cycle]EpisodicOther gastrointestinal disorders (18 sources)Constipation; Translations: [Constipation, unspecified]Onset: 186968-87-9087TccgckotQwuylqr on above:Problem List clean-up per request of Phys. EHR CmteOther gastrointestinal disorders (1 source)Constipation, unspecified; Translations: [Constipation, unspecified] Onset: 72-35-4947TkmjkyemVrtgi hereditary and degenerative nervous system conditions (20 sources)Finding of scapular structure; Translations: [Other specified extrapyramidal and movement disorders]Onset: 335412-34-2379IscjtvySzrgx nervous system disorders (9 sources)Chronic pain; Translations: [Other chronic pain]Onset: 03-29-2023 11-08-9493KdxzbmkXszns nervous system disorders (1 source)Other chronic pain; Translations: [Chronic pelvic pain in female] Onset: 85-73-8803HeqvakjRsdst nervous system disorders (1 source)Paresthesia of left upper limb; Translations: [Paresthesia of skin] 21-66-4291TsbvqedpJmbpunv on above:Problem List clean-up per request of Phys. EHR CmteOther nervous system disorders (1 source)Tremor; Translations: [Tremor, unspecified]24-62-7812VbvvgbguUgzgwca on above:Problem List clean-up per request of Phys. EHR CmteOther nutritional; endocrine; and metabolic disorders (20 sources)Body mass index 30+ - obesity; Translations: [Obesity, unspecified] Onset: 456119-75-6776HnhwgykByyvm and delivery including normal (16 sources); Translations: [Encounter for supervision of normal , unspecified, unspecified trimester]37-04-5654MlirplrzTlujr screening for suspected conditions (not mental disorders or infectious disease) (8 sources)Elevated liver enzymes level; Translations: [Other specified abnormal findings of blood chemistry]Onset: 04-18-2022 Resolved: 97-44-3068FvopnbksSuhhj upper respiratory disease (20 sources)Allergic rhinitis due to pollen; Translations: [Allergic rhinitis due to pollen]Onset: 499037-60-5427UzbyrqwJssdz upper respiratory infections (2 sources)Sinusitis; Translations: [Chronic sinusitis, unspecified]06-22-2025 ChronicResidual codes; unclassified (2 sources)Contraception ; Translations: [Other specified health status] 73-39-9812QnofpbglIhnnxyaw codes; unclassified (2 sources)Gestation period, 13 weeks; Translations: [13 weeks gestation of ]65-06-0790GuwlcdcvExvaepzf codes; unclassified (2 sources)Gestation period, 17 weeks; Translations: [17 weeks gestation of ]62-06-4326WofojqdyMtjntrzx codes; unclassified (2 sources)Gestation period, 20 weeks; Translations: [20 weeks gestation of ]73-80-8984ZvarwraoDfnippcj codes; unclassified (2 sources)Gestation period, 24 weeks; Translations: [24 weeks gestation of ]23-70-9134EjdqsrfnGhyicesw codes; unclassified (2 sources)Gestation period, 26 weeks; Translations: [26 weeks gestation of ]62-11-8503FwfuoqogDvutjiqz codes; unclassified (2 sources)Gestation period, 27 weeks; Translations: [27 weeks gestation of ]84-16-1625WddolyvbJbqhpxct codes; unclassified (1 source)Gestation period, 28 weeks; Translations: [28 weeks gestation of ]42-07-6722SmnpknviBgtgncgn codes; unclassified (1 source)28 weeks gestation of ; Translations: [28 weeks gestation of ]Onset: 68-33-1702TqvxgriaEqvyzvxq codes; unclassified (2 sources)Gestation period, 29 weeks; Translations: [29 weeks gestation of ]10-40-8838ImxndckcCkzlsasjfjk; intervertebral disc disorders; other back problems (20 sources)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; Translations: [Other cervical disc displacement, unspecified cervical region] Onset: 633478-33-8095NroqczmGtrfkathvmkm (1 source)Gestational DiabetesOnset: 11-38-3258Hdgiywwtmfyq (1 source)MFM consultOnset: 95-38-0020Xhzsjvx tract infections (20 sources)Recurrent urinary tract infection; Translations: [Urinary tract infection, site not specified]Onset: 285693-75-4410Yxtrypoz Past or Other Problems Problem ClassificationProblemDateDocumented DateEpisodic/ChronicAbdominal pain (20 sources)Epigastric pain; Translations: [Epigastric pain]Onset: 07-14-2022 EpisodicAcquired foot deformities (20 sources)Acquired equinus deformity of foot; Translations: [Other acquired deformities of unspecified foot]Onset: 098480-01-7055HhecdkklRdugwlc dysrhythmias (20 sources)Tachycardia; Translations: [Tachycardia, unspecified]Onset: 947050-88-3176NwqqqmqcNudecyfqkfw deficiencies (20 sources)Cobalamin deficiency; Translations: [Deficiency of other specified B group vitamins]Onset: 546376-93-0661ZvtveekoAquhm connective tissue disease (20 sources)Posterior calcaneal exostosis; Translations: [Calcaneal spur, unspecified foot]Onset: 588732-01-7905SaevsiquYhxsz disorders of stomach and duodenum (20 sources)Gastroparesis syndrome; Translations: [Gastroparesis]Onset: 316102-78-0951ThmghrarSnbtv female genital disorders (1 source)Other specified conditions associated with female genital organs and menstrual cycle; Translations:[High-tone pelvic floor dysfunction]Onset: 44-49-7006AtososfrMrhzn female genital disorders (17 sources)Chronic pelvic pain of female; Translations: [Chronic pelvic pain in female]Onset: 924403-22-5435NjtmcnnjGpmgu gastrointestinal disorders (20 sources)Swallowing painful; Translations: [Dysphagia, unspecified]Onset: 039014-70-0340XccgdrdkJvapy gastrointestinal disorders (20 sources)Diarrhea; Translations: [Diarrhea, unspecified]Onset: 03-24-2025 51-89-2544XzqcnlqdSqwvj non-traumatic joint disorders (20 sources)Chronic pain of right upper limb; Translations: [Pain in right shoulder]Onset: 091609-35-4823MuxvrydgFdzvc nutritional; endocrine; and metabolic disorders (16 sources)Loss of appetite; Translations: [Anorexia]Onset: 05-27-2020 05-21-6258KavnfyhoGvsflty (15 sources)Vasovagal syncope; Translations: [Syncope and collapse]Onset: 596985-23-0338GvtmkyfdJmqjmxdnhuww (9 sources)PregnancyOnset: 07-14-2022 Resolved: 394639-11-7852XEUILGV: Highlighted row has been ruled out! Unclassified (1 source)No known active xorblahi47-79-3048 Results Test NameValueInterpretationReference RangeFacilityUS OB BPP W NON-STRESS on 11[place]09[place] [address] Ultrasound Report Signed Patient: JUHI GAMA MR#: [id number] : 1995 Acct:[id number] Age/Sex: 30 / F ADM Date: 09/19/25 Loc: US Attending Dr: Steph Keane Ordering Physician: Steph Keane Date of Service: 09/19/25 Procedure(s): US OB BPP w non-stress Accession Number(s): [id number] cc: Steph Keane; Yomaira BELTRAN [place] [id number] Patient Name: JUHI GAMA MRN: [id number] date: 1995 Sex: F Assigned Patient Location: [facility] Current Patient Location: Accession/Order Number: [id number] Exam Date: 09/19/2025 10:06 Report Date: 09/19/2025 [...] Morillo M.D. 09/19/2025 12:17 PM Dictation Location: [employer] Electronically authenticated by: [id number] Y Date: 09/19/2025 12:17 Dictated By: Jp Morillo D.O. Signed By: 09/19/25 1219 DD/ TD/TT: City Carrier:SATNAMadiolRandell malagon, - 09/19/2025 [place] [address] Ultrasound Report Signed Patient: JUHI GAMA MR#: [id number] : 1995 Acct:[id number] Age/Sex: 30 / F ADM Date: 09/19/25 Loc: US Attending Dr: Steph Keane Ordering Physician: Steph Keane Date of Service: 09/19/25 Procedure(s): US OB BPP w non-stress Accession Number(s): [id number] cc: Steph Keane; Yomaira BELTRAN [place] [address] Patient Name: JUHI GAMA MRN: [id number] date: 1995 Sex: F Assigned Patient Location: [facility] Current Patient Location: Accession/Order Number: [id number] Exam Date: 09/19/2025 10:06 Report Date: 09/19/2025 [...] Morillo M.D. 09/19/2025 12:17 PM Dictation Location: [employer] Electronically authenticated by: [id number] Y Date: 09/19/2025 12:17 Dictated By: Jp Morillo D.O. Signed By: 09/19/25 1219 DD/ 1217 TD/TT: City Carrier: [place] HealthcareRadiology Study observation (narrative)[facility] HOSP[facility]ALSahlonda HealthcareUS OB BPP W NON-STRESSOrdered By: Radiologist Radiology on 89-77-7497SLGTSamaritan Hospital Work Phone: Urinalysis macro (dipstick) panel (U)on 09-16-2025 Bilirubin, UANegativeNegative - 4(70) +++ mg/dLNOMS HealthcareBlood, UANegative Negative - 50 Teodoro/mcLNOND HealthcareClarity, UAClearNOMS HealthcareColor, UA YellowNOND HealthcareGlucose, UANegativeNegative - 2000(110) ++++ mg/dLACADIA HEALTHCARE HealthcareInterpretation and review of laboratory resultsNormalNOThree Rivers Healthcare Ketones, UANegativeNegative - 160(16) ++++ mg/dLACADIA HEALTHCARE HealthcareLeukocytes, UA NegativeNegative - 500+++ Robinson/mcLNOND HealthcareNitrite, UANegativeNegative - PositiveNOND HealthcarepH, UA6.05 - 9NOND HealthcareProtein, UANegativeNegative - 2000(20) ++++ mg/dLACADIA HEALTHCARE HealthcareSpec Grav, UA1.0101 - 1.03NOND Healthcare Urobilinogen, UA1.00.2 - 12 mg/dLSaint Francis Hospital [facility] HealthcareALL BUNon 74-82-2008Vmxw nitrogen [Mass/Vol]8 mg/dL7.0 - 18.0 mg/dLSamaritan HospitalALL URIC ACIDon 07-78-1101Rsxfq [Mass/Vol]3.5 mg/dL2.6 - 6.0 mg/dLSamaritan HospitalCCF ALT on 21-68-8822VSI [Catalytic activity/Vol]40 U/L14 - 59 U/LNOMS HealthcareCCF AST on 27-30-4103YUX [Catalytic activity/Vol]24 U/L15 - 37 U/LNOMS HealthcareNo Panel Informationon 47-53-4862Ocisycccgwhsfj and review of laboratory results AbnormalNOND HealthcareCLINISYNCNDeaconess Incarnate Word Health SystemTBH CREATININEon 09-03-2025 Creatinine [Mass/Vol]0.42 mg/dLLow0.55 - 1.02 mg/dLNOND HealthcareGFR/1.73 sq M.predicted CKD-EPI (S/P/Bld) [Vol rate/Area]>60>=60 mL/min/1.73m 2NOMS [facility] SystemTB EGFR-NON AF CROATIAN>60>=60 mL/min/1.73m 2NOMS [facility] SystemTB URINE T PROTEIN CREAT RATIOon 89-75-5291ZWKLWBSVSQ URINE RANDOM<13.66Lhu74.00 - 300.00 mg/dLNOThree Rivers HealthcareTOTAL PROTEIN URINE RANDOM<6.0NINF - 11.9 mg/dLSamaritan HospitalUrinalysis macro (dipstick) panel (U)on 40-18-0901Rwcxrbzag, UA NegativeNegative - 4(70) +++ mg/dLACADIA HEALTHCARE HealthcareBlood, UANegativeNegative - 50 Teodoro/[facility] HospitalClarity, UAClearNOND HealthcareColor, UAYellowNOND HealthcareGlucose, UANegativeNegative - 2000(110) ++++ mg/dLSamaritan Hospital Interpretation and review of laboratory resultsNormalACADIA HEALTHCARE HealthcareKetones, UA NegativeNegative - 160(16) ++++ mg/dLSamaritan HospitalLeukocytes, UANegative Negative - 500+++ Robinson/mcLSamaritan HospitalNitrite, UANegativeNegative - Positive [facility] HealthcarepH, UA6.55 - 9NOND HealthcareProtein, UANegativeNegative - 2000(20) ++++ mg/dLACADIA HEALTHCARE HealthcareSpec Grav, UA1.0051 - 1.03NOND Healthcare Urobilinogen, UA2.00.2 - 12 mg/dLNORichland CenterTB TOTAL PROTEIN 24 HOUR URINEon 68-58-3095Mcxwzwsvadnijr and review of laboratory results AbnormalNOND HealthcareProtein (U) [Mass/Vol]22.6 mg/dLHighNINF - 11.9 mg/dLSamaritan HospitalTB TOTAL PROTEIN 24 HOUR VKFAA442.6NINFNOThree Rivers HealthcareTOTAL VOLUME 24 HOUR FKGOQ100qN/24hrNOND HealthcareCLINISYNCNALLIANCEHEALTH [facility] HealthcareALL CBC WITH AUTO DIFFon 78-70-1774UKNGWGTKP ABSOLUTE AUTO0.1NOMS HealthcareBasophils/100 WBC (Bld)0.5 %0.2 - 2.0 %[facility]itan HospitalEosinophils/100 WBC (Bld)1.4 %0.9 - 7.0 % [facility] HospitalErythrocyte distribution width (RBC) [Ratio]13 %11.0 - 15.0 %[facility] HospitalHematocrit (Bld) [Volume fraction]34.4 %Low36.0 - 48.0 %[facility] HospitalHemoglobin (Bld) [Mass/Vol]11.3 g/dLLow12.0 - 16.0 g/dLSamaritan Hospital IMMATURE GRANULOCYTES ABS AUTO0.59HighNOThree Rivers HealthcareImmature granulocytes/100 WBC (Bld)4.4 %High0.0 - 0.5 %[facility] HospitalInterpretation and review of laboratory resultsAbnormalSamaritan HospitalLYMPHOCYTES ABSOLUTE AUTO2.4NOThree Rivers HealthcareLymphocytes/100 WBC (Bld)17.8 %Low20.5 - 60.0 %[facility] NetworkH (RBC) [Entitic mass]29.4 pg26.7 - 34.0 pgNortheast Missouri Rural Health NetworkHC (RBC) [Mass/Vol] 32.8 g/dL29.9 - 35.2 g/dLNortheast Missouri Rural Health NetworkV (RBC) [Entitic vol]89.4 fL81.0 - 99.0 fLSamaritan HospitalMONOCYTES ABSOLUTE AUTO1.1HighNOThree Rivers HealthcareMonocytes/100 WBC (Bld)8.1 %1.7 - 12.0 %[facility] HospitalNEUTROPHILS ABSOLUTE VWDR9YhlvUGRTSamaritan HospitalNeutrophils/100 WBC (Bld)67.8 %43.0 - 75.0 %[facility] HospitalPlatelet mean volume (Bld) [Entitic vol]9.6 fL9.5 - 13.5 fLSamaritan HospitalTB EO #0.2NOMS [facility] SystemTB FLI727LLMM [facility] RBC3.85LowNOCox North WBC13.3High [facility] HospitalCLINISYNFormerly [facility] URINE T PROTEIN CREAT RATIOon 40-06-7800DLSAUAKTAQ URINE RANDOM<13.48Gtg71.00 - 300.00 mg/dLSamaritan Hospital Interpretation and review of laboratory resultsAbnormCoatesville Veterans Affairs Medical CenterTOTAL PROTEIN URINE RANDOM<6.0NINF - 11.9 mg/dLDuke [facility] US OB BPP W NON-STRESSon 53-04-7345[place] [address] Ultrasound Report Signed Patient: JUHI GAMA MR#: [id number] : 1995 Acct:[id number] Age/Sex: 30 / F ADM Date: Loc: [place] [address]: KUNAL HYATT M.D. Ordering Physician: Steph Keane Date of Service: 08/27/25 Procedure(s): US OB BPP w non-stress Accession Number(s): [id number] cc: Steph Keane; Yomaira BELTRAN [place] [id number] Patient Name: JUHI GAMA MRN: [id number] date: 1995 Sex: F Assigned Patient Location: LAB Current Patient Location: LAB Accession/Order Number: [id number] Exam Date: 08/27/2025 17:37 Report Date: 08/27/2025 [...] Morillo M.D. 08/27/2025 6:02 PM Dictation Location: [place] [address] Electronically authenticated by: [id number] Y Date: 08/27/2025 18:02 Dictated By: Jp Morillo D.O. Signed By: 08/27/251804 DD/ 01 TD/TT: City Carrier:Jarret Radiologist, - 08/27/2025 [place] [address] Ultrasound Report Signed Patient: JUHI GAMA MR#: [id number] : 1995 Acct:[id number] Age/Sex: 30 / F ADM Date: Loc: [facility] 250-[address]: KUNAL HYATT M.D. Ordering Physician: Steph Keane Date of Service: 08/27/25 Procedure(s): US OB BPP w non-stress Accession Number(s): [id number] cc: Steph Keane; Yomaira BELTRAN [place] [address] Patient Name: JUHI GAMA MRN: [id number] date: 1995 Sex: F Assigned Patient Location: LAB Current Patient Location: LAB Accession/Order Number: [id number] Exam Date: 08/27/2025 17:37 Report Date: 08/27/2025 [...] Morillo M.D. 08/27/2025 6:02 PM Dictation Location: [place] [address] Electronically authenticated by: [id number] Y Date: 08/27/2025 18:02 Dictated By: Jp Morillo D.O. Signed By: 08/27/251804 DD/ 01 TD/TT: City Carrier: LANETTE HealthcareRadiology Study observation (narrative)LANETTE SmallUS OB BPP W NON-STRESSOrdered By: Radiologist Radiology on 03-79-0606HWYW Healthcare Work Phone: Urinalysis macro (dipstick) panel (U)on 08-27-2025 Bilirubin, UANegativeNegative - 4(70) +++ mg/dLNOMS HealthcareBlood, UANegative Negative - 50 Teodoro/mcLNOND HealthcareClarity, UAClearNOMS HealthcareColor, UA YellowNOMS HealthcareGlucose, UANegativeNegative - 2000(110) ++++ mg/dLNOND HealthcareInterpretation and review of laboratory resultsNormalSamaritan Hospital Ketones, UANegativeNegative - 160(16) ++++ mg/dLACADIA HEALTHCARE HealthcareLeukocytes, UA NegativeNegative - 500+++ Robinson/mcLACADIA HEALTHCARE HealthcareNitrite, UANegativeNegative - PositiveNOMS HealthcarepH, UA65 - 9NOMS HealthcareProtein, UANegativeNegative - 2000(20) ++++ mg/dLNOND HealthcareSpec Grav, UA1.0151 - 1.03NOND Healthcare Urobilinogen, UA2.00.2 - 12 mg/dLNOND HealthcareNOMS HealthcareURINE CULTURE, ROUTINEon 16-05-5108Hdgdwrap identified Cx Nom (U) Urine Culture, Routine NOMS HealthcareBacteria identified Cx Nom (U)Mixed urogenital floraNOMS HealthcareBacteria identified Cx Nom (U)25,000-50,000 colony forming units per mLNOMS HealthcareBacteria identified Cx Nom (U)Performed at: - [facility] NOMS HealthcareBacteria identified Cx Nom (U)[address] [place], [place] [id number] HealthcareBacteria identified Cx Nom (U)Stripping Shovel Operator: Cm Sandoval PhD, Phone: [phone] HealthcareCLINISYNCNOMS Cperahexkf6ob hr Glucose Tolerance 100 gm loadon 82-58-4970Niqxzyi Tolerance Test 2 Kfwv555 [facility] Campus Medical CenterCapillary Glucose POCon 31-27-5441Uvallqh [Mass/Vol]88 mg/hVAdfbqk42-64IhuofkMercy Health St. Anne HospitalComment on above:Performed By: #### [id number] #### [facility] [address], [place] [address]Ykt 1 Hron 33-71-8419Iktncpj [Mass/Vol]152 mg/vQPvqath35-[address] [facility] HospitalComment on above:Performed By: #### [id number] #### [facility] [address], [place] [address]Rae 2 Hron 08-82-2806Pxqqlbl [Mass/Vol]169 mg/eSZhyy86-[address] [facility] HospitalComment on above:Performed By: #### [id number] #### [facility] [address], [place] [address]Uku 3 Hron 53-32-0108Tttnrdk [Mass/Vol]141 mg/lJJxlv57-[address] Anne HospitalComment on above:Performed By: #### [id number] #### [facility] [address], [place] [address]Rfs Fastingon 20-54-7753Vyifgjz [Mass/Vol]82 mg/eTYhnmbj63-[address] Anne HospitalComment on above:Performed By: #### [id number] #### [facility] [address], [place] [address]Dgpvnhp tolerance, 1 houron 83-18-9394Iedzsnh Tolerance Test 1 Tien982GkaGzygtb Health SystemGlucose tolerance, 3 hourson 71-27-2025Fveoogt Tolerance Test 3 Vdrf919KcmQhgpbu Health SystemGlucose, tolerance fastingon 21-45-8441Jwotbtm Tolerance Test Jhfdydr97MkqKcufam Health SystemNo Panel Informationon 40-19-9189NyrZzcxsdMain Campus Medical CenterCBC w/ Auto Diffon 08-12-2025 Basophil Absolute0.1 E9/LNormal0.0-0.2FLakeHealth TriPoint Medical CenterComment on above:Performed By: #### [id number] #### [facility] [address], [place] [address]Vmtpjdyvv/100 WBC (Bld)0.6 %Normal0.0-2.0[facility] St. Anne HospitalComment on above:Performed By: #### [id number] #### [facility] [address], [place] [address]Krt Absolute0.1 E9/LNormal0.0-0.5FLakeHealth TriPoint Medical Center Comment on above:Performed By: #### [id number] #### [facility] [address], [place] [address]Mladsqyqrig/100 WBC (Bld)1.0 %Normal0.0-8.0[facility] Anne HospitalComment on above:Performed By: #### [id number] #### [facility] [address], [place] [address]Hjopxcoihvn distribution width (RBC) [Ratio]12.9 %Normal 10.9-14.2FLakeHealth TriPoint Medical CenterComment on above:Performed By: #### [id number] #### [facility] [address], [place] [address]Wpmysjptrp (Bld) [Volume fraction]33.1 %Low34.0-46.0[facility]. Anne HospitalComment on above:Performed By: #### [id number] #### [facility] [address] [place] [address]Eyneqcwnxg (Bld) [Mass/Vol]11.4 g/dLLow12.0-16.0[facility] Anne HospitalComment on above:Performed By: #### [id number] #### [facility] [address] [place] [address]Tjape Absolute2.0 E9/LNormal1.0-4.0[facility] Comment on above:Performed By: #### [id number] #### [facility] [address] [place] [address]Plwehfavwom/100 WBC (Bld)19.6 %Bjdhkb62.0-50.0[facility] Anne HospitalComment on above:Performed By: #### [id number] #### [facility] [address], [place] [address]VHS (RBC) [Entitic mass]29.9 myPlydzz41.0-34.0[facility] Anne HospitalComment on above:Performed By: #### [id number] #### [facility] [address], [place] [address]CPMX (RBC) [Mass/Vol]34.4 g/jAYylogx27.4-36.0[facility] Anne HospitalComment on above:Performed By: #### [id number] #### [facility] [address], [place] [address]WQP (RBC) [Entitic vol]86.7 nAWkrtxs50.0-100.0[facility] HospitalComment on above:Performed By: #### [id number] #### [facility] [address], [place] [address]Cawy Absolute0.5 E9/LNormal0.2-1.0[facility] Comment on above:Performed By: #### [id number] #### [facility] [address] [place] [address]Irpsggxeq/100 WBC (Bld)4.6 %Normal4.0-14.0[facility] Anne HospitalComment on above:Performed By: #### [id number] #### [facility] [address], [place] [address]Yqpcgm Absolute7.5 E9/LNormal2.0-7.5FLakeHealth TriPoint Medical Center Comment on above:Performed By: #### [id number] #### [facility] [address], [place] [address]Prqirv Auto74.2 %Uqjewj38.0-75.0[facility] Comment on above:Performed By: #### [id number] #### [facility] [address], [place] [address]Sgtkfjsj646.0 E9/NIlawyi340.0-500.0[facility] Comment on above:Performed By: #### [id number] #### [facility] [address], [place] [address]Govphyti mean volume (Bld) [Entitic vol]8.1 fLNormal6.4-10.[address] Anne HospitalComment on above:Performed By: #### [id number] #### [facility] [address], [place] [address]GDF7.8 E12/LLow4.3-5.9[facility] Anne HospitalComment on above:Performed By: #### [id number] #### [facility] [address], [place] [address]DUG39.1 E9/LNormal4.0-11.0[facility] Anne HospitalComment on above:Performed By: #### [id number] #### [facility] [address], [place] [address]Vbjbskosca 72-96-7519Dlaykcgq Lvl7 ng/hJIet83-374YdoplrMercy Health St. Anne HospitalComment on above:Performed By: #### [id number] #### [facility] [address], [place] [address]Djvsytgq 50-97-8668Fkjfxz Lvl>22.3Normal>=6.7FLakeHealth TriPoint Medical CenterComment on above:Performed By: #### [id number] #### [facility] [address] [place] [address]Ufst Scr Glu 1 Hron 02-07-0510Jafioan [Mass/Vol]155 mg/dLHigh 55-140Mer[facility] St. Anne HospitalComment on above:Performed By: #### [id number] #### [facility] [address] [place] [address]Lvvgzhh 1h post 50g loadon 17-98-9183Xqtphbt, 1 hr PP 50GM dose 155ProMedica Health SystemIronon 44-41-7706Htzu72 microgram/fLBtfqfi40-571AshpbaMercy Health St. Anne HospitalComment on above:Performed By: #### [id number] #### [facility] [address], [place] [address]Kp Panel Informationon 46-57-1334LYJX HealthcareTIBC Calculated on 20-06-7569XFUW608 microgram/fALomr997-893LbpndtMercy Health St. Anne HospitalComment on above:Performed By: #### [id number] #### [facility] [address], [place] [address]Raktjygsavb [Mass/Vol]455 mg/qXIfcz647-116LucblcMercy Health St. Anne HospitalComment on above:Performed By: #### [id number] #### [facility] [address], [place] [address]UR OB LIMITED 1+ FETUSESon 52-90-3300QC OB LIMITED 1+ FETUSES FINDINGS: Single viable [...] Delivery: 11/28/25 Gestational Age as of 07/21/2025: 53r2hPsrnxqkmoy macro (dipstick) panel (U)on 85-82-1949Iicbtmlhc, UANegativeNegative - 4(70) +++ mg/dLNOMS HealthcareBlood, UANegativeNegative [...] HealthcareUrobilinogen, UA1.00.2 - 12 mg/dLNOMS HealthcareVit B12on 44-99-2974Truxlmpts (Vitamin B12) [Mass/Vol]205 pg/cUTdubvx31-9234VbspvaMercy Health St. Anne HospitalComment on above:Performed By: #### [id number] #### [facility] [address], [place] [address]EKP w/ Auto Diffon 21-16-0792Gsbpaowv Absolute0.0 E9/LNormal 0.0-0.2FLakeHealth TriPoint Medical CenterComment on above:Performed By: #### [id number] #### [facility] [address] [place] [address]Vnyzztlqp/100 WBC (Bld)0.2 %Normal0.0-2.0[facility] St. Anne HospitalComment on above:Performed By: #### [id number] #### [facility] [address] [place] [address]Pmv Absolute0.1 E9/LNormal0.0-0.5FLakeHealth Tri[facility] Center Comment on above:Performed By: #### [id number] #### [facility] [address] [place] [address]Mqugsiuszhm/100 WBC (Bld)0.5 %Normal0.0-8.0[facility] St. Anne HospitalComment on above:Performed By: #### [id number] #### [facility] [address] [place] [address]Wlyfftvvrwn distribution width (RBC) [Ratio]13.0 %Normal 10.9-14.2FLakeHealth TriPoint Medical CenterComment on above:Performed By: #### [id number] #### [facility] [address] [place] [address]Puhmtgjsyk (Bld) [Volume fraction]31.9 %Low34.0-46.0[facility] Anne HospitalComment on above:Performed By: #### [id number] #### [facility] [address] [place] [address]Jlthaxjeze (Bld) [Mass/Vol]11.1 g/dLLow12.0-16.0[facility] Anne HospitalComment on above:Performed By: #### [id number] #### [facility] [address] [place] [address]Dmoos Absolute2.1 E9/LNormal1.0-4.0[facility] Comment on above:Performed By: #### [id number] #### [facility] [address], [place] [address]Hzmipnopwrp/100 WBC (Bld)16.2 %Augpco45.0-50.0[facility] Anne HospitalComment on above:Performed By: #### [id number] #### [facility] [address] [place] [address]MSW (RBC) [Entitic mass]29.9 jjHvcgtr58.0-34.0[facility] Anne HospitalComment on above:Performed By: #### [id number] #### [facility] [address] [place] [address]LYVP (RBC) [Mass/Vol]34.8 g/vCRcwurw29.4-36.0[facility] Anne HospitalComment on above:Performed By: #### [id number] #### [facility] [address] [place] [address]ZTH (RBC) [Entitic vol]85.7 gYVuykmj88.0-100.0[facility] Anne HospitalComment on above:Performed By: #### [id number] #### [facility] [address] [place] [address]Hcct Absolute0.9 E9/LNormal0.2-1.0[facility] Comment on above:Performed By: #### [id number] #### [facility] [address] [place] [address]Tjeqcpvsm/100 WBC (Bld)7.0 %Normal4.0-14.0[facility] Anne HospitalComment on above:Performed By: #### [id number] #### [facility] [address] [place] [address]Qitxui Absolute9.7 E9/LHigh2.0-7.5FLakeHealth TriPoint [facility] Center Comment on above:Performed By: #### [id number] #### [facility] [address] [place] [address]Iligvv Auto76.1 %High36.0-75.0[facility] Comment on above:Performed By: #### [id number] #### [facility] [address], [place] [address]Jdxmdpbv704.0 E9/PYvowhy863.0-500.0[facility] Comment on above:Performed By: #### [id number] #### [facility] [address], [place] [address]Xbrjxdxe mean volume (Bld) [Entitic vol]8.0 fLNormal6.4-10.[address] Anne HospitalComment on above:Performed By: #### [id number] #### [facility] [address], [place] [address]UEO6.7 E12/LLow4.3-5.9[facility] HospitalComment on above:Performed By: #### [id number] #### [facility] [address], [place] [address]NJD89.8 E9/LHigh4.0-11.0[facility] HospitalComment on above:Performed By: #### [id number] #### [facility] [address], [place] [address]ZKIgt 27-68-2601WG6 [Moles/Vol]20 mmol/JOns03-00BwabrwMercy Health St. Anne HospitalComment on above:Performed By: #### [id number] #### [facility] [address], [place] [address]Atwbl gap [Moles/Vol]16 mmol/LNormal6-16[facility] Anne HospitalComment on above:Performed By: #### [id number] #### [facility] [address], [place] [address]Vjycjrj [Mass/Vol]3.8 g/dLNormal3.3-5.0[facility] Anne HospitalComment on above:Performed By: #### [id number] #### [facility] [address], [place] [address]Ldzfhor/Globulin [Mass ratio]1.3 {ratio}Normal1.1-2.2FLakeHealth TriPoint Medical CenterComment on above:Performed By: #### [id number] #### [facility] [address], [place] [address]Xry Phos78 Int._Unit/SPsnufm69-81PdkkaiMercy Health St. Anne Hospital Comment on above:Performed By: #### [id number] #### [facility] [address], [place] [address]IFK65 Int._Unit/LNormal6-46[facility] Anne HospitalComment on above:Performed By: #### [id number] #### [facility] [address], [place] [address]ZQL86 Int._Unit/LNormal5-43[facility] Anne HospitalComment on above:Performed By: #### [id number] #### [facility] [address], [place] [address]Xruc Total0.8 mg/dLNormal0.0-1.1FLakeHealth Tri[facility] Comment on above:Performed By: #### [id number] #### [facility] [address], [place] [address]ROA/Creat Ratio18 No RrsqlPsnfzu89-31CpxfawMercy Health St. Anne HospitalComment on above:Performed By: #### [id number] #### [facility] [address], [place] [address]Hxfpkmd [Mass/Vol]8.9 mg/dLNormal8.9-11.1FLakeHealth TriPoint Medical CenterComment on above:Performed By: #### [id number] #### [facility] [address], [place] [address]Hhrmxozi [Moles/Vol]104 mmol/CXlqyxx271-130AmsfaxMercy Health St. Anne HospitalComment on above:Performed By: #### [id number] #### [facility] [address], [place] [address]Wgcvcpwafx [Mass/Vol]0.6 mg/dLNormal0.5-1.3FLakeHealth TriPoint Medical CenterComment on above:Performed By: #### [id number] #### [facility] [address], [place] [address]Czkcysny (S) [Mass/Vol]3.0 g/dLNormal1.4-4.0[facility] Anne HospitalComment on above:Performed By: #### [id number] #### [facility] [address], [place] [address]Wnbrffq [Mass/Vol]92 mg/uEKsgwlw93-856DedmnuMercy Health St. Anne HospitalComment on above:Performed By: #### [id number] #### [facility] [address], [place] [address]Lprwnylsz [Moles/Vol]3.7 mmol/LNormal3.5-5.3FLakeHealth TriPoint Medical CenterComment on above:Performed By: #### [id number] #### [facility] [address], [place] [address]Buvwlbi [Mass/Vol]6.8 g/dLNormal6.0-7.8[facility] Anne HospitalComment on above:Performed By: #### [id number] #### [facility] [address], [place] [address]Uauxrc [Moles/Vol]136 mmol/PGkvngn696-395XhyjqwMercy Health St. Anne HospitalComment on above:Performed By: #### [id number] #### [facility] [address], [place] [address]Kbvw nitrogen [Mass/Vol]11 mg/dLNormal5-21[facility] Anne HospitalComment on above:Performed By: #### [id number] #### [facility] [address], [place] [address]Mturu Panelon 07-63-6505Exhlrxorufp [Mass/Vol]239 mg/dLHigh 120-200Mer[facility] St. Anne HospitalComment on above:Performed By: #### [id number] #### [facility] [address], [place] [address]Qbaakourezq in HDL [Mass/Vol]88 mg/dLInvalid Interpretation CodeMercy Health St. Anne HospitalComment on above:Result Comment: '>= 60 LOW RISK' '<= 40 HIGH RISK'Performed By: #### [id number] #### [facility] [address], [place] [address]Ecuhpzikcag in LDL [Mass/Vol]144 mg/dLHigh<=129Mer[facility] St. Anne HospitalComment on above:Performed By: #### [id number] #### [facility] [address], [place] [address]Segatwimiox in VLDL [Mass/Vol]40 mg/dLNormal7-40[facility] Anne HospitalComment on above:Performed By: #### [id number] #### [facility] [address], [place] [address]Tzqzqxhqypkm [Mass/Vol]202 mg/dLHigh<=149[facility] Anne HospitalComment on above:Performed By: #### [id number] #### [facility] [address], [place] [address]gDKOmf 30-90-0465lHDR558 mL/min/1.73 s4Mbfgui>=59[address] Anne HospitalComment on above:Performed By: #### [id number] #### [facility] [address], [place] [address]HYU, SERUM, OPEN SPINA BIFIDAon 56-30-9895ZAC MOM0.95.[facility] HealthcareAFP VALUE59.2 ng/mL.[facility] HealthcareCOMMENT:Comment.[facility] Healthcare Comment on above:Amy Ramos, Ph.D., [facility] Director References: Available Upon Request. Multiples Of Median Cutoffs For AFP Elevations Hsieh 2.5 Black 2.8 IDD 2.0 Twins 4.5 Abbreviation Definitions IDD - Insulin Dep Diabetes OSBR - Open Spina Bifida Risk For further inquiries contact [employer] at [phone]. This test was developed and its performance characteristics determined by EpicTopic. It has not been cleared or approved by the Food and Drug Administration. Performed at: [facility] [address] [place], [place] [id number] Stripping Shovel Operator: Dona Justin [facility], Phone: [phone] GEST. AGE ON COLLECTION DATE20.6. weeksNOND HealthcareGESTAT. AGE BASED ONLMP. [facility]itan HospitalComment on above:Recalculations are not recommended when gestational dating by LMP and ultrasound are within 10 days. INSULIN DEP DIABETESNo.NOMS HealthcareINTERPRETATIONComment.[facility] Comment on above:Interpretation: Screen Negative This result [...] Customer Services to discuss available options. The [employer] recommends amniocentesis be offered to women age 35 and older. MATERNAL AGE AT EDD30.7. yrNOND HealthcareMULTIPLE GESTATIONNo.[facility] OSBR RISK 1 [id number].[facility] SystemRACECaucasian.[facility]itan HospitalRESULTSReport. [facility]aritan HospitalTEST RESULTS:Negative.[facility]aritan HospitalXcootraxbzTANWRR260. lbsNOND HealthcarePREGNANCY N N LMP [id number] 2 17 N 1 Y 146 N N N N N White/ CLINISYNCNOMS HealthcareUS OB 14+ WEEKS ANATOMY SCANon 73-80-0436TQ OB 14+ WEEKS ANATOMY SCANEXAM: US OB [...] II, MD, PHD at 16-Jul-2025 08:07:07 AM [facility] TeleradiologyNormalNot AvailableComment on above:Order Comment: US OB ANATOMY SINGLE W US OB CERVICAL LENGTH Estimated Date of Delivery: 11/28/25 Gestational Age as of 06/22/2025: 61g3nEenmquoiwm macro (dipstick) panel (U)on 59-79-0960Dqprozvkx, UANegativeNegative - 4(70) +++ mg/dLNOMS HealthcareBlood, UANegativeNegative [...] 12 mg/dLNOMS HealthcareNOMS Healthcare RECURRENT VAGINITIS (HTRX)on 30-87-8066SMIXBRACT EWNYZAV4VDDT Healthcare ATOPOBIUM VAGINAENot detectedNOMS HealthcareBVAB 2,3 (BACTERIAL VAGINOSIS ASSOCIATED BACTERIA 2, 3); MOBILUNCUS YVR4CMJF HealthcareBVAB 2,3 (BACTERIAL VAGINOSIS ASSOCIATED BACTERIA 2, 3); MOBILUNCUS SPPNot detectedNOMS Healthcare RADHA ALBICANS, PARAPSILOSIS, XOUFUFOBRN1JGCF HealthcareCANDIDA ALBICANS, PARAPSILOSIS, TROPICALISNot detectedNOMS HealthcareCANDIDA CJJIRYIU7JELY HealthcareCANDIDA GLABRATANot detectedNOMS HealthcareCANDIDA FOLUMC6LXVQ HealthcareCANDIDA KRUSEINot detectedNOMS HealthcareCHLAMYDIA QSELBHFRSGZ0LPJX HealthcareCHLAMYDIA TRACHOMATISNot detectedNOMS HealthcareGARDNERELLA VAGINALIS 17.967AbnormalNOMS HealthcareGARDNERELLA VAGINALISDetectedAbnormalNOND HealthcareInterpretation and review of laboratory resultsAbnormalNOMS Healthcare MEGASPHAERA (TYPES 1, 2)0NOMS HealthcareMEGASPHAERA (TYPES 1, 2)Not detectedNOMS HealthcareMYCOPLASMA QHIPNPQPWP4EWLL HealthcareMYCOPLASMA GENITALIUMNot detectedNOMS HealthcareNEISSERIA BXNMFLZIVVM8OJNA HealthcareNEISSERIA GONORRHOEAENot detectedNOMS HealthcareTRICHOMONAS NGLMREZNT2LSLC Healthcare TRICHOMONAS VAGINALISNot detectedNOMS HealthcareNOMS HealthcareUrinalysis macro (dipstick) panel (U)on 13-58-4448Wjtnomxpp, UANegativeNegative - 4(70) +++ mg/dL NOMS HealthcareBlood, UANegativeNegative - 50 Teodoro/mcLNOMS HealthcareClarity, UA ClearNOMS HealthcareColor, UAYellowNOMS HealthcareGlucose, UANegativeNegative - 1999(110) ++++ mg/dLNOND HealthcareInterpretation and review of laboratory resultsNormalNOMS HealthcareKetones, UANegativeNegative - 160(16) ++++ mg/dLNOMS HealthcareLeukocytes, UANegativeNegative - 500+++ Robinson/[facility] HospitalNOND Healthcare Nitrite, UANegativeNegative - PositiveNOMS HealthcarepH, UA65 - 9N[facility]S Healthcare Protein, UANegativeNegative - 2000(20) ++++ mg/dLNOMS HealthcareSpec Grav, UA 1.0051 - 1.03NOMS HealthcareUrobilinogen, UA1.00.2 - 12 mg/dLNOMS HealthcareNOMS HealthcareUrinalysis macro (dipstick) panel (U)on 51-91-4556Fkpjhvmpw, UA NegativeNegative - 4(70) +++ mg/dLNOMS HealthcareBlood, UANegativeNegative - 50 Teodoro/mcLNOMS HealthcareClarity, UAClearNOMS HealthcareColor, UAYellowNOMS HealthcareGlucose, UANegativeNegative - 2000(110) ++++ mg/dLNOND Healthcare Interpretation and review of laboratory resultsNormalNOMS HealthcareKetones, UA NegativeNegative - 160(16) ++++ mg/dLNOMS HealthcareLeukocytes, UAPositive Negative - 500+++ Robinson/Jewish Maternity HospitalNOND HealthcareComment on above:smallNitrite, UA NegativeNegative - PositiveNOMS HealthcarepH, UA6.55 - 9NOMS HealthcareProtein, UANegativeNegative - 2000(20) ++++ mg/dLNOMS HealthcareSpec Grav, UA1.011 - 1.03 NOMS HealthcareUrobilinogen, UA0.20.2 - 12 mg/dLNOPike County Memorial Hospital Healthcare BOX TESTon 23-63-2476POM TEST SENT OUTunSelect Medical [facility] MqelrsqdsfQJZ7olttcEEKG SjrveccrluESD35/08/20NOND HealthcareUNITY BOX CLINISYNCCBC without diffon 28-91-1241Omrviftbpy (Bld) [Volume fraction]39.8 % [facility] SystemHemoglobin (Bld) [Mass/Vol]13.2 g/dLBrecksville VA / [facility] Hospital SystemPlatelets (Bld) [#/Vol]390 10*3/uLMain Campus Medical CenterRbc Mcv (Fl) By Automated Count84.7Main Campus Medical CenterDrug Screen, Urineon 05-04-2025 Amphetamine/MethamphetamineNegativeProMedica Health SystemBarbituratesNegative [facility] SystemBenzodiazepinesNegativeProMedica Health SystemCocaine MetaboliteNegativeProMedica Health SystemMethadoneNegativeProMedica Health SystemOpiatesNegativeProMedica Health SystemOxycodoneNegativeProMedica Health SystemPhencyclidineNegativeProMedica Health SystemThc Marijuana, UrineNegative [facility] SystemHBV surface Ag IA Qlon 94-71-6761Zbxpxbxye B Surface AntigenNegativeProMedica Health SystemHCV Ab IA Qlon 78-68-1136LXB Ab Ql (S) Non-ReactiveBrecksville VA / [facility]ille Hospital SystemHIV 1+2 Ab+HIV1 p24 Ag IA Qlon 99-99-3868SCU 1&2 AB/AGNon-ReactiveBrecksville VA / [facility] Hospital SystemHemoglobin A1con 91-10-4009OfY6x (Bld) [Mass fraction]5.3 %4.0 - 6.0 %[facility] SystemNo Panel Information on 66-40-0126MIEH HealthcareRubella IGG immune statusOrdered By: Angeline Velasquez on 19-27-1495Juhwcsb immune IgGProTrihealth [facility] SystemType and screenon 94-45-8560Kzl/Rh(D)PositiveBrecksville VA / [facility]ille Hospital SystemHCG ( test) Ql (U)on 00-41-2267Igzzcluhytyjrv and review of laboratory resultsAbnormalNOMS Healthcare Preg Test, UrPositiveNegativeNOMS HealthcareNOMS HealthcareUS OB TRANSVAGINALon 11-34-4638Omo[place], [place] [address] Ultrasound Report Signed Patient: JUHI COPE MR#: [id number] : 1995 Acct:[id number] Age/Sex: 30 / F ADM Date: 05/01/25 Loc: US Attending Dr: Nathan Pop D.O. Ordering Physician: Nathan Pop D.O. Date of Service: 05/01/25 Procedure(s): US OB transvaginal Accession Number(s): [id number] cc: Nathan Pop D.O.; Physician,Non-Staff M.D. [place] [id number] Patient Name: JUHI COPE MRN: [id number] date: 1995 Sex: F Assigned Patient Location: US Current Patient Location: US Accession/Order Number: [id number] Exam Date: 05/01/2025 08:57 Report Date: 05/01/2025 [...] Faria M.D. 05/01/2025 9:01 AM Dictation Location: [place] [address] Electronically authenticated by: [id number] Y Date: 05/01/2025 09:01 Dictated By: Will Faria M.D. Signed By: 05/01/25903 DD/ 0 TD/TT: City Carrier:SATNAMadiology, Radiologist, - 05/01/2025 [place] [address] Ultrasound Report Signed Patient: JUHI COPE MR#: [id number] : 1995 Acct:[id number] Age/Sex: 30 / F ADM Date: 05/01/25 Loc: US Attending Dr: Nathan Pop D.O. Ordering Physician: Ntahan Pop D.O. Date of Service: 05/01/25 Procedure(s): US OB transvaginal Accession Number(s): [id number] cc: Nathan Pop D.O.; Physician,Non-Staff [place] [address] Patient Name: JUHI COPE MRN: [id number] date: 1995 Sex: F Assigned Patient Location: US Current Patient Location: US Accession/Order Number: [id number] Exam Date: 05/01/2025 08:57 Report Date: 05/01/2025 [...] Faria M.D. 05/01/2025 9:01 AM Dictation Location: [place] [address] Electronically authenticated by: [id number] Y Date: 05/01/2025 09:01 Dictated By: Will Faria M.D. Signed By: 05/01/25903 DD/ 0 TD/TT: City Carrier: LANETTE HealthcareRadiology Study observation (narrative)[facility]itan HospitalUS OB TRANSVAGINALOrdered By: Radiologist Radiology on 79-00-5543CVGZ Healthcare Work Phone: Urinalysis macro (dipstick) panel (U)on 05-01-2025 Bilirubin, UANegativeNegative - 4(70) +++ mg/dLNOMS HealthcareBlood, UANegative Negative - 50 Teodoro/mcLNOMS HealthcareClarity, UAClearNOMS HealthcareColor, UA YellowNOMS HealthcareGlucose, UANegativeNegative - 2000(110) ++++ mg/dLNOMS HealthcareInterpretation and review of laboratory resultsNormalNOMS Healthcare Ketones, UANegativeNegative - 160(16) ++++ mg/dLNOMS HealthcareLeukocytes, UA NegativeNegative - 500+++ Robinson/mcLNOMS HealthcareNitrite, UANegativeNegative - PositiveNOMS HealthcarepH, UA5.55 - 9NOMS HealthcareProtein, UANegativeNegative - 2000(20) ++++ mg/dLNOMS HealthcareSpec Grav, UA1.021 - 1.03NOMS Healthcare Urobilinogen, UA1.00.2 - 12 mg/dLNOMS HealthcareNOMS HealthcareCHEMISTRYOrdered By: SYSTEM SYSTEM on 02-86-3940Skmwpurwubjr Lvl31.35 ng/mLInvalid Interpretation CodeRemisol ChemComment on above:Result Comment: 'F NON FOLLICULAR = 0.10 - 0.60' 'LUTEAL = 3.00 - 17.5' 'MIDLUTEAL = 3.30 - 18.6' 'POST-MENOPAUSE = 0.10 - 0.40' '-FIRST TRIMESTER = 8.30 - 66.5' 'SECOND TRIMESTER = 18.9 - 66.1' 'THIRD TRIMESTER = 35.8 - 312.4' 'MALES = 0.14 - 2.06'Progesteroneon 32-58-3430Akrbfnnrakts Lvl31.35 ng/mLInvalid Interpretation CodeMercy Health St. Anne HospitalComment on above:Result Comment: 'F NON FOLLICULAR = 0.10 - 0.60' 'LUTEAL = 3.00 - 17.5' 'MIDLUTEAL = 3.30 - 18.6' 'POST-MENOPAUSE = 0.10 - 0.40' '-FIRST TRIMESTER = 8.30 - 66.5' 'SECOND TRIMESTER = 18.9 - 66.1' 'THIRD TRIMESTER = 35.8 - 312.4' 'MALES = 0.14 - 2.06'Performed By: #### [id number] #### [facility] [address] [place], [place] [address]Xgnmoeidqtwati 00-02-9338Vgtvzmlqneri1.2 ng/mLNormal.The [facility] Physician GroupComment on above:Result Comment: Follicular phase 0.1 - 0.9 Luteal phase 1.8 - 23.9 Ovulation phase 0.1 - 12.0 First trimester 11.0 - 44.3 Second trimester 25.4 - 83.3 Third trimester 58.7 - 214.0 Postmenopausal 0.0 - 0.1 Performed at: - [facility] [address] [id number] Stripping Shovel Operator: Cm Sandoval PhD, Phone: [phone] PERFORMED BY: [address] [address] PATHOLOGIST SEED EXPERT ARNULFO THOMAS M.D.Performed By: #### PROG #### [facility] , Transvaginal Non-OBon 91-84-1144HJ Transvaginal Non-OBExam Date/Time: 01/22/2025 16:22 EST Reason for Exam: N94.6 Report PLEASE SEE US Pelvis Non-OB Complete REPORT DATED: 01/22/2025. Ordering Provider: Nathan POP FINAL REPORT Dictated: 01/27/2025 10:11 am Siddharth Foy MD Signed (Electronic Signature): 01/27/2025 10:11 am Signed by: Siddharth Foy MD Transcribed by: ELOISA Technologist: KRNoFayette County Memorial HospitalUS Pelvis Non-OB Completeon 50-74-4533EK Pelvis Non-OB CompleteExam Date/Time: 01/22/2025 16:24 EST [...] POP FINAL REPORT Dictated: 01/22/2025 5:50 pm Mary Kate Gonzalez MD Signed (Electronic Signature): 01/22/2025 5:50 pm Signed by: Mary Kate Gonzalez MD Transcribed by: ELOISA Technologist: ChrismengMercy Health St. Anne HospitalIGP,APTIMA HPV,AGE GDLNon 00-77-1655EUO GDLN ACOG TESTINGNote.NOMS HealthcareComment on above:TESTS RESULT FLAG UNITS REF RANGE LAB Clinician Provided Cytology Information Source.............Cervix;Endocervix No. of containers..01 ThinPrep Vial Age Gina Smith... FLAG LEGEND: L-Low Normal,H-High Normal,LL-Alert Low,HH-Alert High <-Panic Low,>-Panic High,A-Abnormal,AA-Critical Abnormal Performed at: 01 =G [facility] [address] Loren Oneal MD, IGP, RFX APTIMA HPV ASCUNote.NOMS HealthcareComment on above:TESTS RESULT FLAG UNITS REF RANGE LAB DIAGNOSIS: 02 NEGATIVE FOR INTRAEPITHELIAL LESION OR MALIGNANCY. Specimen adequacy: 02 Satisfactory for evaluation. Endocervical and/or squamous metaplastic cells (endocervical component) are present. Performed by: Sophia Calzada, Scale Mechanic ([facility]) . 02 Note: Note 02 [...] <-Panic Low,>-Panic High,A-Abnormal,AA-Critical Abnormal Performed at: [address] [address] Loren Oneal MD, Performed at: =[facility] [id number] Stripping Shovel Operator: Loren Oneal MD, Phone: [phone] Performed at: [address] [id number] Stripping Shovel Operator: Loren Oneal MD, Phone: [phone] BRUSH-SPATULA CERVIX ENDOCERVIX [facility] CAMPUSNOSaint Alexius HospitalPN 89-49-0535KGBWZudfruhqj (WHQ) JUHI COPE ([id number]) 1995 F Date Time Provider Department 04/29/24 CHARLENE RODRIGUEZ WHQ During your visit today, we recorded the following information about you: Candis Garces 04/29/2024 8:24 AM Signed Received message from admin Anna Webb to cancel surgery and all appts as pt had services elsewhere Allergies As of Date: 04/29/2024 (No Known Allergies) Date Reviewed: 12/10/2023 Reviewed by: Alayna Faye Fully Assessed Prescriptions as of 04/29/2024 - [...] [I10] Encounter Status:Closed by CANDIS GARCES on 04/29/24[facility] HospitalTanya 22-59-3979YWMDRbvufyhfh (WHQ) JUHI COPE ([id number]) 1995 F Date Time Provider Department 04/25/24 GEORGEBARBARA CHARLENE WHQ During your visit today, we recorded the following information about you: Anna De Leon 04/25/2024 1:10 PM Signed Pt got in sooner for surgery with her local morgue attendant. Please cancel surgery and all pre and post op appts. Allergies As of Date: 04/25/2024 (No Known Allergies) Date Reviewed: 12/10/2023 Reviewed by: Alayna Faye E - Fully Assessed Reason for Visit: Surgery Cancelled [4169] Prescriptions as of 04/25/2024 - norethindrone (AYGESTIN) [...] Encounter Status:Closed by ANNA DE LEON on 04/25/24[facility] 12-LEADon 47-45-3036B[address] [address] Electrocardiograph Report Signed Patient: JUHI COPE MR#: [id number] : 1995 Acct:[id number] Age/Sex: 28 / F ADM Date: 02/13/24 Loc: [facility] Attending Dr: Nathan Pop D.O. Ordering Physician: Nathan Pop D.O. Date of Service: 02/13/24 Procedure(s): ECG 12 lead Accession Number(s): [id number] cc: [facility] Test Date: 2024-02-13 Pat Name: JUHI COPE Department: Room: - Gender: Female Pattern Data Operator: : 1995 Requested By: NATHAN POP Order Number: [id number] Reading MD: MARY KATE ORDAZ Measurements Intervals [place] Rate: 86 P: 31 IL: 133 QRS: 20 QRSD: 89 T: 47 QT: 374 QTc: 449 Interpretive Statements SINUS RHYTHM No previous ECG available for comparison Electronically Signed On 02-14-2024 6:50:27 EDT by MARY KATE ORDAZ Dictated By: Mary Kate Ordaz D.O. Signed By: 02/14/24 0650 DD/ 1455 TD/TT: City Carrier:TBHRadiology, Radiologist, - 02/14/[address] [address] Electrocardiograph Report Signed Patient: JUHI COPE MR#: [id number] : 1995 Acct:[id number] Age/Sex: 28 / F ADM Date: 02/13/24 Loc: PST Attending Dr: Nathan Pop D.O. Ordering Physician: Nathan Pop D.O. Date of Service: 02/13/24 Procedure(s): ECG 12 lead Accession Number(s): [id number] cc: [facility] Test Date: 2024-02-13 Pat Name: JUHI COPE Department: Room: - Gender: Female Pattern Data Operator: : 1995 Requested By: NATHAN POP Order Number: [id number] Reading MD: MARY KATE ORDAZ Measurements Intervals [place] Rate: 86 P: 31 IL: 133 QRS: 20 QRSD: 89 T: 47 QT: 374 QTc: 449 Interpretive Statements SINUS RHYTHM No previous ECG available for comparison Electronically Signed On 02-14-2024 6:50:27 EDT by MARY KATE ORDAZ Dictated By: Mary Kate Ordaz D.O. Signed By: 02/14/24 0650 DD/ 1455 TD/TT: City Carrier: LANETTE Hooks 12-LEADOrdered By: Radiologist Radiology on 60-25-0729[employer] Work Phone: ECG 12-LEADon 05-06-3552Mbjohmdbn Study observation (narrative)LANETTE SmallUS PELVIS W/ TRANSVAGINALon 45-87-2208Zhc[address] [address] Ultrasound Report Signed Patient: JUHI COPE MR#: [id number] : 1995 Acct:[id number] Age/Sex: 28 / F ADM Date: 01/15/24 Loc: [facility] Attending Dr: Nathan Pop D.O. Ordering Physician: Nathan Pop D.O. Date of Service: 01/15/24 Procedure(s): US pelvis w/ transvaginal Accession Number(s): [id number] cc: Nathan Pop D.O.; Physician,Non-Staff M.Mark Anthony [address] [address] Patient Name: JUHI COPE MRN: [id number] date: 1995 Sex: F Assigned Patient Location: [facility] Current Patient Location: [facility] Accession/Order Number: [id number] Exam Date: 01/15/2024 07:57 Report Date: 01/15/2024 11:42 At the request of: NATHAN POP Procedure: US pelvis w/ transvaginal EXAMINATION: [...] account for patient's symptoms. Electronically authenticated by: JOE WATERMAN Date: 01/15/2024 11:42 Dictated By: Joe Waterman M.D. Signed By: 01/15/24 1144 DD/ 1142 TD/TT: City Carrier:ANTHONYHRadiology, Radiologist, MD - 01/15/2024 [place] [address] Ultrasound Report Signed Patient: JUHI COPE MR#: [id number] : 1995 Acct:[id number] Age/Sex: 28 / F ADM Date: 01/15/24 Loc: [facility] Attending Dr: Nathan Pop D.O. Ordering Physician: Nathan Pop D.O. Date of Service: 01/15/24 Procedure(s): US pelvis w/ transvaginal Accession Number(s): [id number] cc: Nathan Pop D.O.; Physician,Non-Staff [place] [id number] Patient Name: JUHI COPE MRN: [id number] date: 1995 Sex: F Assigned Patient Location: [facility] Current Patient Location: [facility] Accession/Order Number: [id number] Exam Date: 01/15/2024 07:57 Report Date: 01/15/2024 11:42 At the request of: NATHAN POP Procedure: US pelvis w/ transvaginal EXAMINATION: [...] account for patient's symptoms. Electronically authenticated by: JOE WATERMAN Date: 01/15/2024 11:42 Dictated By: Joe Waterman M.D. Signed By: 01/15/24 1144 DD/ 1142 TD/TT: City Carrier: LANETTE HealthcareRadiology Study observation (narrative)MATA HealthcareUS PELVIS W/ TRANSVAGINALOrdered By: Radiologist Radiology on 75-30-4001SJUF Healthcare Work Phone: cNPNon 63-49-4445WCATXmugbtgbc (Q) JUHI COPE ([id number]) 1995 F Date Time Provider Department 12/12/23 GEORGEBARBARACHARLENE [facility] During your visit today, we recorded the following information about you: Candis Garces 12/12/2023 2:16 PM Signed 1st attempt [...] [I10] Encounter Status:Closed by CANDIS GARCES on 12/12/23[facility] 70-67-2778AZSPOfvsxm Visit (GYMGME) JUHI COPE ([id number]) 1995 F Date Time Provider Department 12/10/23 10:30 AM CHARLENE RODRIGUEZ During your visit today, we recorded the following information about you: Pulse Blood pressure Weight 98/minute 124/84 68.9 kg Charlene Rodriguez DO 12/10/2023 3:14 PM Signed [facility] SECTION FOR MINIMALLY INVASIVE GYNECOLOGIC SURGERY OUTPATIENT VISIT DATE 12/10/2023 OUTPATIENT VISIT TYPE Follow-up visit PRIMARY CARE PHYSICIAN: Denny Rodríguez [address] [place] [address] REFERRING PHYSICIAN: Self CHIEF COMPLAINT: No chief [...] MRI: no evidence of 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 Vincent Medical Centerology Cervical or vaginal smear or scraping studyon 02-75-6983DHPF HealthcareCNPNon 55-10-5148XMJWKjvjzjiad (GYNMER[facility] [place] [place] [facility] [place] JUHI COPE ([id number]) 1995 F Date Time Provider Department 08/02/23 CHARLENE RODRIGUEZ [facility] During your visit today, we [...] Signed PA for orilissa completed via Cover MD On-Line. Juhi Cope (Morales: [id number]) - [id number] Orilissa 150MG tablets Status: Sent To Plan Created: August 02, 2023 Sent: August 02, 2023 DIALLO Coffey Ashley 08/03/2023 10:22 AM Signed Candis Suárez RN 08/09/2023 1:36 PM Signed Patient notified of approval via MyC message. Encounter closed. Candis Suárez RN Allergies As of Date: 08/02/2023 (No Known Allergies) Date Reviewed: 07/16/2023 Reviewed by: Zenobia Lyman, RN - Fully Assessed Reason for Visit: [...] [I10] Encounter Status:Closed by JENIFER LYNN on 08/02/23[facility] 79-61-4168GEOYGauaqu Visit (GYMGME) JUHI COPE ([id number]) 1995 F Date Time Provider Department 07/16/23 11:30 AM CHARLENE RODRIGUEZ During your visit today, we recorded the following information about you: Blood pressure Last Period 136/90 07/08/23 Charlene Rodriguez DO 07/16/2023 12:41 PM Signed [facility] SECTION FOR MINIMALLY INVASIVE GYNECOLOGIC SURGERY OUTPATIENT VISIT DATE 07/16/2023 OUTPATIENT VISIT TYPE Follow-up visit PRIMARY CARE PHYSICIAN: Denny Rodríguez [address] [place] [address] REFERRING PHYSICIAN: Denny Rodríguez CHIEF COMPLAINT: No [...] additional bowel lesions identified 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 IMPRESSION: No deep infiltrating endometriosis. City Carrier: PSCB Transcribe Date/Time: Jun 12 2023 2:54P Dictated by : ASHLEY DUKE MD This examination was interpreted and the report reviewed and electronically signed by: SONIDO FLAHERTY MD on Jun 12 2023 4:51PM EST [id number] Grant Medical CenterCNPNon 47-37-2018EKVGEtezwugji (GYNMN) JUHI COPE ([id number]) 1995 F Date Time Provider Department 05/11/23 CHARLENE RODRIGUEZ GYNMN During your visit today, we recorded the following information about you: Twaana Nair [facility] 05/11/2023 1:21 PM Signed [...] Takes aygestin 5mg daily. She did not peanut picker flexeril. Encourage to peanut picker the flexeril as this will help with the cramping. Reviewed red flag bleeding symptoms that require trip to ER (soaking greater than one overnight pad per hour, chest pain, shortness of breath, fatigue, palpitations).. Advised keep appt. Gives verbal understanding. Appointments for Next 60 Days Date Time Provider Location Dept Phone 05/17/2023 1:00 PM CHARLENE RODRIGUEZ [facility] [place] [phone] Candis Suárez RN Allergies As of Date: 05/11/2023 (No Known Allergies) Date Reviewed: 05/09/2023 Reviewed by: Jihan Downs APRN.RAWHIDE BONE ROLLER - Fully Assessed Reason for Visit: Vaginal [...] [I10] Encounter Status:Closed by CANDIS WILLINGHAM on 05/11/23[facility] 81-90-8410WJKGGrmpic Visit [facility] JUHI COPE ([id number]) 1995 F Date Time Provider Department 05/01/23 10:30 AM JIHAN DOWNS [facility] During your visit today, we recorded the following information about you: Blood pressure Weight Height Last Period 148/64 64.9 kg 1.575 m 04/22/23 Jihan Downs APRN.RAWHIDE BONE ROLLER 05/09/2023 11:46 AM Signed Juhi Cope is a 28 year old female who presents for problem visit for pain HPI: Pain is week before period and week of period. Worse on her period for every day she's bleeding Urinary - No symptoms GI - Always constipated. No meds [place] - painful always Pain is on left [...] L0 SAB0 IAB0 Ectopic0 Multiple0 Live Births0 Bulk Gas Specialist History LMP: 03/26/2023 (Approximate), Having periods Age at Menarche: Age at First : Age at Menopause: Bulk Gas Specialist History Comments: Sexual Activity: Never; No [...] physical therapy - or can go locally pelvicShenzhen Justtide Technologyab.Smallknot Trial flexeril at bedtime Can consider Baclofen suppositories Continue Norethindrone - can take up to 3 months for it to stop periods, take at same time every day Relaxation techniques Jihan Downs APRN.RAWHIDE BONE ROLLER Medical Decision Making: Problems: Moderate: New problem with uncertain prognosis Data: Unique source(s) for external note(s) reviewed: 1 Unique test result(s) reviewed: 1 Risk: Moderate: Drug management Medical Decision Making Level: 4 - Moderate Jihan Downs APRN.CNP 05/01/2023 11:49 AM Addendum Plan Pelvic floor physical therapy - or can go locally pelvicShenz[place] Justtide Technologyab.Smallknot Trial flexeril at bedtime Can consider Baclofen suppositories - let me know if you want to trial after you go to PT Contin (more content not included)...NormalRiverside Methodist HospitalCHEMISTRY Ordered By: SYSTEM SYSTEM on 18-12-0839Kyzfjra [Mass/Vol]4.3 g/dLNormal3.3 - 5.0 gm/dLFT RemisolAlbumin/Globulin [Mass [...] [Mass/Vol]8.8 mg/dLLow8.9 - 11.1 mg/dLFTMC RemisolChloride [Moles/Vol]100 mmol/BWdj251 - 111 mmol/LFTMC RemisolCO2 [Moles/Vol]24 mmol/L Ccvwac99 - 31 mmol/LFTMC RemisolCreatinine [Mass/Vol]1.0 mg/dLNormal0.5 - 1.3 mg/dLFTMC RemisolGFR/1.73 sq M.predicted among blacks MDRD (S/P/Bld) [Vol rate/Area]mL/min/1.73 o6Oxvksc>=59mL/min/1.73 m2[facility] Chem SGFR/1.73 sq M.predicted among non-blacks MDRD (S/P/Bld) [Vol rate/Area]mL/min/1.73 b1Pipgvp >=59mL/min/1.73 m2[facility] Chem SGlobulin (S) [Mass/Vol]3.6 g/dLNormal1.4 - 4.0 gm/dLFTMC RemisolGlucose [Mass/Vol]104 mg/jIHbtdyk96 - 199 mg/dLFTMC Remisol Potassium [Moles/Vol]3.6 mmol/LNormal3.5 - 5.3 mmol/LFTMC RemisolProtein [Mass/Vol]7.9 g/dLHigh6.0 - 7.8 gm/dLFTMC RemisolSodium [Moles/Vol]134 mmol/LLow 135 - 145 mmol/LFTMC RemisolUrea nitrogen [Mass/Vol]10 mg/dLNormal5 - 21 mg/dL [facility] RemisolUrea nitrogen/Creatinine [Mass ratio]10 mg/maXekpty57 - 20FT[facility] RemisolHEMATOLOGYOrdered By: Amairani Jenkins on 77-85-8922Ikgjlbjnalni Ql (Bld) Present (01/31/23 2:10 PM)NormalFTMC HemeManSSErythrocyte [...] fLNormal6.4 - 10.8 fLFTMC HemeAutoSSPlatelets (Bld) [#/Vol]471.0 E9/AUazmwz268.0 - 500.0 E9/LFTMC HemeAutoSSRBC (Bld) [#/Vol]4.3 E12/LNormal4.3 [...] - 0.5 E9/L [facility] HemeAutoSSLymphocytes/100 WBC (Bld)31.7 %Wcdzcf70.0 - 50.0 %[facility] HemeAutoSS Lymphocytes/Leukocytes Auto (Bld) [Pure # fraction]2.4 E9/LNormal1.0 - 4.0 E9/L [facility] HemeAutoSSMonocytes/100 WBC (Bld)9.1 %Normal4.0 - 14.0 %[facility] HemeAutoSS Monocytes/Leukocytes Auto (Bld) [Pure # fraction]0.7 E9/LNormal0.2 - 1.0 E9/L [facility] HemeAutoSSNeutrophils/100 WBC (Bld)57.4 %Nrdmfu97.0 - 75.0 %[facility] HemeAutoSS Neutrophils/Leukocytes Auto (Bld) [Pure # fraction]4.3 E9/LNormal2.0 - 7.5 E9/L [facility] HemeAutoSSSEROLOGYOrdered By: Patricia Newton on 08-66-5613QOW.beta subunit (U) [Moles/Vol]NegativeNormalFTMC Man SeroURINALYSISOrdered By: Solomon Leal on 11-00-1852Xekjcekqb Ql (U)Negative (01/31/23 1:57 PM)NormalNegativeFTMC UA Auto SSClarity (U)Clear (01/31/23 1:57 PM)NormalClearFTMC UA Auto SSColor (U)Yellow (01/31/23 1:57 PM)NormalYellowFTMC UA Auto SSEpithelial cells.squamous LM.HPF (Urine sed) [#/Area]3-4 /HPFNormal0-2/HPFFTMC UA Auto SSGlucose Test strip (U) [Mass/Vol]Negative (01/31/23 1:57 PM)NormalNegativeFTMC UA Auto SSHemoglobin Ql (U)Negative (01/31/23 1:57 PM)NormalNegativeFTMC UA Auto SSKetones (U) [Mass/Vol]Negative (01/31/23 1:57 PM)NormalNegative[facility] [place] Auto SSLithium.plasma/[place].RBC (Bld) [Mass ratio]0-3 /HPFNormal0-3/HPFFTMC UA Auto SSNitrite Ql (U)Negative (01/31/23 1:57 PM)NormalNegativeFT UA Auto SSpH (U)6.0 *NA* (01/31/23 1:57 PM)Invalid Interpretation Code5.0 - 9.0FT UA Auto SSProtein (U) [Mass/Vol]Negative (01/31/23 1:57 PM)NormalNegativeMER[facility] [place] [facility] Auto SSSpecific gravity (U) [Rel density] 1.010 *NA* (01/31/23 1:57 PM)Invalid Interpretation Code1.005 - 1.030FT UA Auto SSUA Spec DescClean Catch (01/31/23 1:57 PM)NormalMER[facility] [place] [facility] Auto SSUrobilinogen Qn (U)0.6535948 {Aspen'U}/dL Normal0.0 - 1.0 EU/dLFT UA Auto SSWBC Auto Ql (U)Negative (01/31/23 1:57 PM)NormalNegativeMER[facility] [place] [facility] Auto SSWBC LM.HPF (Urine sed) [#/Area]0-5 /HPFNormal0-5/HPFFTMC UA Auto SSBLOOD BANKOrdered By: Teena Quiroz on 93-99-9259BMO/Rh InterpPositiveInvalid Interpretation CodeMER[facility] [place] BB SubsectionABSC Gel InterpNegative (12/30/22 11:28 AM)NormalMER[facility] BB SubsectionCHEMISTRYOrdered By: SYSTEM SYSTEM on 93-55-3397Lpsvk gap [Moles/Vol]12 mmol/LNormal6 - 16 mEq/LFTMC RemisolCalcium [Mass/Vol]8.6 mg/dLLow8.9 - 11.1 mg/dLFTMC RemisolChloride [Moles/Vol]103 mmol/L Uuyisu424 - 111 mmol/LFTMC RemisolCO2 [Moles/Vol]26 mmol/PJtteys72 - 31 mmol/L [facility] RemisolCreatinine [Mass/Vol]0.9 mg/dLNormal0.5 - 1.3 mg/dLFT Remisol GFR/1.73 sq M.predicted among blacks MDRD (S/P/Bld) [Vol rate/Area]mL/min/1.73 q9Zbzeqj>=59mL/min/1.73 m2FT Chem SGFR/1.73 sq M.predicted among non-blacks MDRD (S/P/Bld) [Vol rate/Area]mL/min/1.73 s4Fjqifb>=59mL/min/1.73 m2FT Chem S Glucose [Mass/Vol]105 mg/eLNkxvxp97 - 199 mg/dLFT RemisolPotassium [Moles/Vol] 3.8 mmol/LNormal3.5 - 5.3 mmol/LFTMC RemisolSodium [Moles/Vol]137 mmol/LNormal 135 - 145 mmol/LFTMC RemisolUrea nitrogen [Mass/Vol]17 mg/dLNormal5 - 21 mg/dL [facility] RemisolUrea nitrogen/Creatinine [Mass ratio]19 mg/obPczlhj02 - 20FT RemisolCOAGULATIONOrdered By: Courtney Case on 06-17-3337yDVL Coag (PPP) [Time]31.5 dOganob48.1 - 36.5 second(s)[facility] Auto CoagINR Coag (PPP) [Relative time]1.0 {INR}Invalid Interpretation CodeFTMC Auto CoagPT Coag (PPP) [Time]11.7 sNormal 9.4 - 12.5 second(s)[facility] Auto CoagHEMATOLOGYOrdered By: SYSTEM SYSTEM on 97-95-9884Bygfkhigf/100 WBC (Bld)1.2 %Normal0.0 - 2.0 %[facility] HemeAutoSS Basophils/Leukocytes Auto (Bld) [Pure # fraction]0.1 E9/LNormal0.0 - 0.2 E9/L [facility] HemeAutoSSEosinophils/100 WBC (Bld)4.1 %Normal0.0 - 8.0 %[facility] HemeAutoSS Eosinophils/Leukocytes Auto (Bld) [Pure # fraction]0.2 E9/LNormal0.0 - 0.5 E9/L [facility] HemeAutoSSLymphocytes/100 WBC (Bld)40.5 %Kmtdxt33.0 - 50.0 %[facility] HemeAutoSS Lymphocytes/Leukocytes Auto (Bld) [Pure # fraction]2.3 E9/LNormal1.0 - 4.0 E9/L [facility] HemeAutoSSMonocytes/100 WBC (Bld)7.6 %Normal4.0 - 14.0 %[facility] HemeAutoSS Monocytes/Leukocytes Auto (Bld) [Pure # fraction]0.4 E9/LNormal0.2 - 1.0 E9/L [facility] HemeAutoSSNeutrophils/100 WBC (Bld)46.6 %Ofrqqw84.0 - 75.0 %[facility] HemeAutoSS Neutrophils/Leukocytes Auto (Bld) [Pure # fraction]2.6 E9/LNormal2.0 - 7.5 E9/L [facility] HemeAutoSSHEMATOLOGYOrdered By: Courtney Tang on 15-95-3817Pydabyfhcfc distribution width (RBC) [Ratio]14.1 %Qihhmq29.9 - 14.2 %[facility] HemeAutoSS Hematocrit (Bld) [Volume fraction]31.5 %Low34.0 - 46.0 %[facility] HemeAutoSS Hemoglobin (Bld) [Mass/Vol]10.0 g/dLLow12.0 - 16.0 gm/dLFTMC HemeAutoSSMCH (RBC) [Entitic mass]25.3 pgLow27.0 - 34.0 pgFTMC HemeAutoSSMCHC (RBC) [Mass/Vol]31.8 g/eUSuykdc70.4 - 36.0 gm/dLFTMC HemeAutoSSMCV (RBC) [Entitic vol]79.6 fLLow80.0 - 100.0 fLFTMC HemeAutoSSPlatelet mean volume (Bld) [Entitic vol]7.7 fLNormal6.4 - 10.8 fLFTMC HemeAutoSSPlatelets (Bld) [#/Vol]264.0 E9/CGktdxr264.0 - 500.0 E9/LFTMC HemeAutoSSRBC (Bld) [#/Vol]4.0 E12/LLow4.3 - 5.9 E12/LFTMC HemeAutoSS WBC corrected for nucl RBC Auto (Bld) [#/Vol]5.7 E9/LNormal4.0 - 11.0 E9/LFTMC HemeAutoSSURINALYSISOrdered By: Courtney Case on 79-31-5348Fwnmgvmp LM Ql (Urine sed)Trace /HPFNormalTrace/HPFFTMC UA Auto SSBilirubin Ql (U)Negative (12/30/22 8:53 AM)NormalNegativeFT UA Auto SSClarity (U)Clear (12/30/22 8:53 AM)NormalClearFTMC UA Auto SSColor (U)Yellow (12/30/22 8:53 AM)NormalYellowFTMC UA Auto SSEpithelial cells.squamous LM.HPF (Urine sed) [#/Area]0-2 /HPFNormal0-2/HPFFTMC UA Auto SSGlucose Test strip (U) [Mass/Vol]Negative (12/30/22 8:53 AM)NormalNegativeMER[facility] [place] [facility] Auto SSHemoglobin Ql (U)2+ *ABN* (12/30/22 8:53 AM)Invalid Interpretation CodeNegativeFT UA Auto SSKetones (U) [Mass/Vol]Negative (12/30/22 8:53 AM)NormalNegativeMER[facility] [place] [facility] Auto SSLithium.plasma/[place].RBC (Bld) [Mass ratio]4-20 /HPFNormal0-3/HPFFTMC UA Auto SSNitrite Ql (U)Negative (12/30/22 8:53 AM)NormalNegativeMER[facility] [place] [facility] Auto SSpH (U)6.0 *NA* (12/30/22 8:53 AM)Invalid Interpretation Code5.0 - 9.0FT UA Auto SSProtein (U) [Mass/Vol]Negative (12/30/22 8:53 AM)NormalNegativeFT UA Auto SSSpecific gravity (U) [Rel density] 1.025 *NA* (12/30/22 8:53 AM)Invalid Interpretation Code1.005 - 1.030FT UA Auto SSUA Spec DescClean Catch (12/30/22 8:53 AM)NormalFT UA Auto SSUrobilinogen Qn (U)0.6992900 {Aspen'U}/dL Normal0.0 - 1.0 EU/dLFTMC UA Auto SSWBC Auto Ql (U)Negative (12/30/22 8:53 AM)NormalNegativeMER[facility] [place] [facility] Auto SSWBC LM.HPF (Urine sed) [#/Area]0-5 /HPFNormal0-5/HPFMERCY [facility]OS[facility] [place] [facility] Auto SSOffice Visiton 14-76-8808Rzyftf-up [id number] Juhi Cope 1995 F Date Provider Department Center 12/05/2022 [id number], GINA [facility] WOM None Chart Close Cosign Required by: Opal Ross MD[VARUND] No family history on file Level of Service:83293 [place] OFFICE/OUTPATIENT ESTABLISHED LOW MDM 20-29 MIN (GE,GC) Reason for Visit and Comments: Blood Pressure Check [299][facility] SHSProgress Noteon 89-20-3327Diaclemo Note Attestation signed by Opal Ross MD at 12/05/2022 3:[address] [facility]: This patient was seen in the [...] about 4 weeks (around 01/02/2023) for Visit .[facility] SHSProgress NoteVital signs BP 127/87 Weight 149.2lb Pulse 106 Temp 96.7NoWest [facility] SHSProgress Noteon 90-44-5038Ceghflcv Note Late entry due to patient care. Resident Diallo notified of B.P 138/96 heart rate 119 around 1236 see flowsheet. Also notified checked in 1 hour via orders and B.P 143/87 pulse 111. Clarified if should check in 1 hour according to orders. . Also notified patient has discharge order in. Resident Diallo states No on rechecking. Ok to discharge. Will make patient aware.[facility] SHSProgress NotePOSTPARTUM VAGINAL DELIVERY POST DAY [...] Name: DO Vanessa Zambrano DO 12/02/2022, 5:09 [facility]42on 13-74-28101476.5mm flanges given to patient. Encouraged her to call for observation of pump session and smaller flanges. Martha in NICU to assist with personal pump.Normal [facility] SHSCARECOORDon 91-78-1738SPBLYTIGS65 year old admitted for induction of labor [...] to home. Denies any concerns at this time.[facility] SHSProgress Noteon 36-76-2647Fkrinqes Note NOTE - VAGINAL DELIVERY POST DAY [...] wheelchair) if she so chooses. Provider's Name: Kathe RyderDO PAOLO POTTERDO JEAN-PIERRE 12/01/2022, 5:32 AM Attestation Statement I saw [...] with more than 50% of the total ohsp-wc-bjgz time of the visit in counseling/coordination of care. , 9:22 [facility] EKE31zi 16-23-029584Rwfml given to patient and educated how to use and to bring to [facility] VLT86Polukl pump use indicated for this pt. Due to: in [facility] Hospital breast pump, supplies kit, swabs [...] Told patient to check with LC in [facility] for smaller flange sizesAurora HospitalLabor and Delivery Noteon 04-90-3425Cuvdi and Delivery Note Attestation with edits by [...] PreEwSF Post-operative Diagnosis: Live Born female Delivering Sign Language Interpreter & Nicker(s): Dr. Bowden; Dr. Kramer Infant Information: Information for the patient's : Francie Cope [[id number]] Information for the patient's : Francie Cope [[id number]] Description: normal Meconium Noted: No Anesthesia: epidural [...] Status: No results found for: RUBELLATAMMI Kramer, DO 11/30/2022, 4:04 [facility] SHSProgress Noteon 89-70-2118Ozcmfbfa NoteFoley catheter inserted by Andi Bacon RN, catheter drained and emptied for 900cc. Catheter secured to leg.[facility] SHSProgress NotePatient up to bathroom but remains unable to void. Bladder scan completed and reads >570. Sent secure message to Dr. Ruiz letting her know the above. Instructed to place chauhan catheter.[facility] SHSProgress Note Secure message sent to Dr. Gamez stating patient is having difficulty voiding, patient's perineum is very swollen, and that patient was straight cathed for 950ml at noon. Received order for benadryl to help with swelling. Aurora HospitalProgress NoteNutrition rescreen completed. Chart reviewed. Patient to be monitored and followed by the diet special equipment technician. Suad Samuels, DTMaria [facility]ri [facility] SHSProgress NotePatient unable to void, last straight cathed at 0400. Bladder scan obtained for >928 ml, fundus +2 and shifted to right. Patient straight cathed on attempt x2 by Andi Bacon RN for 950cc. Will continue to monitor.[facility] SHSCAREPLNon 49-84-3401RABIPJEOgv patient will continue to make cervical change. Clotilde Mg, RNMaria [facility] SHSLaboratory - Hematology and Cell countsOrdered By: Lucrecia Cervantes on 09-39-2202Hgvpurdwv (Bld) [#/Vol]386 10*3/uL140 - 440 10*3/uLAshtabula County Medical Center HealthPlatelets (Bld) [#/Vol]Ordered By: Lucrecia Cervantes on 66-03-6030Ybshqnxfmcglnd and review of laboratory resultsNormal Summa HealthSumma HealthS. agalactiae DNA TENA+probe Ql (Unsp spec)on 11-29-2022 Group B Strep ScreenNot detectedNot DetectedAshtabula County [facility] Center HealthInterpretation and review of laboratory resultsNoGuernsey Memorial HospitalMethodology: real-time PCRSumma Healthmma HealthABO and Rh group Confirm Nom (Bld)on 07-14-1580SZA group Nom (Bld)OSumma HealthD Ag Ql (RBC)PositiveSumma HealthAshtabula County Medical Center HealthBlood type and Crossmatch panel (Bld)on 74-76-7223FOQ group Nom (Bld)OSumma HealthBlood group antibody screen GEL QlNegativeSumma HealthD Ag Ql (RBC)PositiveSCleveland Clinic [facility] HealthCBC panel Auto (Bld)Ordered By: Lauren Ayers on 47-49-3059Feyixnskgih distribution width (RBC) [Ratio]13.3 %11.5 - 14.5 %[facility] HealthHematocrit (Bld) [Volume fraction]33.8 %Low35.0 - 47.0 %[facility] HealthHemoglobin (Bld) [Mass/Vol] 11.2 g/dLLow11.7 - 16.0 g/dLSumma HealthInterpretation and review of laboratory resultsAbnormalSJ.W. Ruby Memorial HospitalH (RBC) [Entitic mass]28.0 pg26.0 - 34.0 pgSJ.W. Ruby Memorial HospitalHC (RBC) [Mass/Vol]33.1 %32.0 - 36.0 %[facility] HealthMCV (RBC) [Entitic vol]84.4 fL80.0 - 98.0 fLAshtabula County Medical Center HealthPlatelet mean volume (Bld) [Entitic vol]8.3 fL7.4 - 12.4 fLAshtabula County Medical Center HealthPlatelets (Bld) [#/Vol]319 10*3/uL140 - 440 10*3/uL Summa HealthRBC (Bld) [#/Vol]4.00 10*6/uL3.8 - 5.20 10*6/uLSumma HealthWBC (Bld) [#/Vol]18.9 10*3/uLHigh3.6 - 10.7 10*3/uLSumma Healthmma HealthComprehensive metabolic 1998 panelon 45-26-6466Boelgku [Mass/Vol]3.9 g/dL3.5 - 5.0 g/dLSumma HealthALP [Catalytic [...] sq M.predicted MDRD (S/P/Bld) [Vol rate/Area]- [facility] HospitalComment on above: Calculation based on the Chronic Kidney Disease Epidemiology Collaboration (CKD- EPI) equation refitwithout adjustment for raceGlucose [Mass/Vol]158 mg/vGOvab30 - 100 mg/dLSumma HealthInterpretation and review of laboratory resultsAbnormal Summa HealthPotassium [Moles/Vol]4.1 mmol/L3.5 - 5.1 mmol/LSumma HealthProtein [Mass/Vol]7.5 g/dL6.3 - 8.2 g/dLSumma HealthSodium [Moles/Vol]133 mmol/DJtt770 - 145 mmol/LSumma HealthUrea nitrogen [Mass/Vol]5 mg/dLLow7 - 17 mg/dLSumma HealthSumma HealthLaboratory - Hematology and Cell countsOrdered By: Shruthi Fontana on 24-99-0700Omvgyfvdw (Bld) [#/Vol]335 10*3/uL140 - 440 10*3/uLSumma HealthPlatelets (Bld) [#/Vol]Ordered By: Shruthi Fontana on 01-03-2023 Interpretation and review of laboratory resultsNormalSumma HealthSumma Health CHEMISTRYOrdered By: SYSTEM SYSTEM on 65-70-4159Fssw T4 index Calc [Mass/Vol] 5.98 ng/dLNormal5.90 - [...] Code0.1 - 0.9 mg/dL [facility] RemisolChloride [Moles/Vol]102 mmol/LNozxaq265 - 111 mmol/LFTMC RemisolCO2 [Moles/Vol]18 mmol/LLow21 - 31 mmol/LFTMC RemisolCreatinine [Mass/Vol]0.6 mg/dL Normal0.5 - 1.3 mg/dLFTMC RemisolGFR/1.73 sq M.predicted among blacks MDRD (S/P/Bld) [Vol rate/Area]mL/min/1.73 z4Nfkoup>=59mL/min/1.73 m2FT Chem S GFR/1.73 sq M.predicted among non-blacks MDRD (S/P/Bld) [Vol rate/Area] mL/min/1.73 h2Ipacwl>=59mL/min/1.73 m2FT[facility] Chem SGlobulin (S) [Mass/Vol]4.0 g/dL Normal1.4 - 4.0 gm/dLFT RemisolPotassium [Moles/Vol]3.7 mmol/LNormal3.5 - 5.3 mmol/LFTMC RemisolProtein [Mass/Vol]7.1 g/dLNormal6.0 - 7.8 gm/dLMER[facility] [place] Remisol Sodium [Moles/Vol]132 mmol/RGmj040 - 145 mmol/LFTMC RemisolUrate [Mass/Vol]4.9 mg/dLNormal2.2 - 7.4 mg/dLMER[facility] [place] RemisolUrea nitrogen [Mass/Vol]7 mg/dLNormal5 - 21 mg/dLMERCY [facility] [place] RemisolCOAGULATIONOrdered By: Amairani Jenkins on 89-27-1089iJLQ Coag (PPP) [Time]25.3 jNmrxpw08.1 - 36.5 second(s)[facility] Auto Coag Fibrin+Fibrinogen fragments (S) [Mass/Vol]>10 and <40 *ABN* (11/27/22 3:14 PM)Invalid Interpretation Code<10[facility] Man SeroFibrinogen Coag (PPP) [Mass/Vol]539 mg/hWOchn890 - 393 mg/dLMERCY HOS[facility] [place] Auto CoagINR Coag (PPP) [Relative time]0.9 {INR}Invalid Interpretation CodeMER[facility]OS[facility] [place] Auto CoagPT Coag (PPP) [Time]10.1 sNormal9.4 - 12.5 second(s)[facility] Auto CoagHEMATOLOGYOrdered By: Raquel Arteaga on 73-43-2209Gcehevvsach distribution width (RBC) [Ratio]12.9 %Ewpbty85.9 - 14.2 % [facility] HemeAutoSSHematocrit (Bld) [Volume fraction]34.2 %Fxwcjq53.0 - 46.0 %[facility] HemeAutoSSHemoglobin (Bld) [Mass/Vol]11.0 g/dLLow12.0 - 16.0 gm/dLFTMC HemeAutoSSMCH (RBC) [Entitic mass]27.3 imHivxdc58.0 - 34.0 pgFTMC HemeAutoSSMCHC (RBC) [Mass/Vol]32.3 g/xONlvpea19.4 - 36.0 gm/dLFTMC HemeAutoSSMCV (RBC) [Entitic vol]84.6 qKFedhln25.0 - 100.0 fLFTMC HemeAutoSSPlatelet mean volume (Bld) [Entitic vol]8.2 fLNormal6.4 - 10.8 fLFTMC HemeAutoSSPlatelets (Bld) [#/Vol]273.0 E9/NSuwphy066.0 - 500.0 E9/LFTMC HemeAutoSSRBC (Bld) [#/Vol]4.0 E12/LLow4.3 - 5.9 E12/LFTMC HemeAutoSSWBC corrected for nucl RBC Auto (Bld) [#/Vol]15.7 E9/LHigh4.0 - 11.0 E9/LFTMC HemeAutoSSComment on above:Result Comment: Slide reviewed by ts Unable to obtain accurate platelet count due to platelet clumping. Platelet count estimate appears normal on slide..URINALYSISOrdered By: Amairani Jeknins on 76-82-6434Ujbejoepx Ql (U)Negative (11/27/22 1:55 PM)NormalNegativeFT UA Auto SSClarity (U)Clear (11/27/22 1:55 PM)NormalClearFTMC UA Auto SSColor (U)Yellow (11/27/22 1:55 PM)NormalYellowFTMC UA Auto SSEpithelial cells.squamous LM.HPF (Urine sed) [#/Area]3-4 /HPFNormal0-2/HPFFTMC UA Auto SSGlucose Test strip (U) [Mass/Vol]Negative (11/27/22 1:55 PM)NormalNegativeFT UA Auto SSHemoglobin Ql (U)1+ *ABN* (11/27/22 1:55 PM)Invalid Interpretation CodeNegativeFT UA Auto SSKetones (U) [Mass/Vol]Negative (11/27/22 1:55 PM)NormalNegativeMER[facility] [place] [facility]A Auto SSLithium.plasma/[place]ering.RBC (Bld) [Mass ratio]4-20 /HPFNormal0-3/HPFFTMC UA Auto SSNitrite Ql (U)Negative (11/27/22 1:55 PM)NormalNegativeFT UA Auto SSpH (U)6.5 *NA* (11/27/22 1:55 PM)Invalid Interpretation Code5.0 - 9.0FT UA Auto SSProtein (U) [Mass/Vol]Negative (11/27/22 1:55 PM)NormalNegativeMER[facility] [place] [facility] Auto SSSpecific gravity (U) [Rel density] 1.010 *NA* (11/27/22 1:55 PM)Invalid Interpretation Code1.005 - 1.030FT UA Auto SSUA Spec DescClean Catch (11/27/22 1:55 PM)NormalMER[facility] [place] [facility] Auto SSUrobilinogen Qn (U)0.8284422 {Aspen'U}/dL Normal0.0 - 1.0 EU/dLMERCY [facility]OS[facility] [place] [facility] Auto SSWBC Auto Ql (U)Negative (11/27/22 1:55 PM)NormalNegativeMER[facility] Auto SSWBC LM.HPF (Urine sed) [#/Area]0-5 /HPFNormal0-5/HPFFTMC UA Auto SSCHEMISTRYOrdered By: SYSTEM SYSTEM on 07-14-2022 Albumin [Mass/Vol]3.6 g/dLNormal3.3 - 5.0 gm/dLMERCY [facility]OS[facility] [place] RemisolAlbumin/Globulin [Mass ratio]1.1 {ratio}Normal1.1 - 2.2FT[facility] RemisolALP [Catalytic activity/Vol]41 [iU]/mTgzrht78 - 98 Int._Unit/LFTMC RemisolALT No additional P-5'-P [Catalytic activity/Vol]19 [iU]/dNormal6 - 46 Int._Unit/LFTMC RemisolAnion gap [Moles/Vol] 11 mmol/LNormal6 - 16 mEq/LFTMC RemisolAST [Catalytic activity/Vol]21 [iU]/d Normal5 - 43 Int._Unit/LFTMC RemisolBilirubin [Mass/Vol]0.7 mg/dLNormal0.0 - 1.1 mg/dLFTMC RemisolBilirubin.direct [Mass/Vol]0.1 mg/dLNormal0.1 - 0.4 mg/dLFTMC RemisolBilirubin.indirect [Mass or moles/Vol]0.6 mg/dLNormal0.1 - 0.9 mg/dLFTMC RemisolCalcium [Mass/Vol]8.9 mg/dLNormal8.9 - 11.1 mg/dLFTMC RemisolChloride [Moles/Vol]107 mmol/QHjjoev657 - 111 mmol/LFTMC RemisolCO2 [Moles/Vol]22 mmol/L Ffzych44 - 31 mmol/LFTMC RemisolCreatinine [Mass/Vol]0.6 mg/dLNormal0.5 - 1.3 mg/dLFTMC RemisolGFR/1.73 sq M.predicted among blacks MDRD (S/P/Bld) [Vol rate/Area]mL/min/1.73 m3Xuvepo>=59mL/min/1.73 m2FT[facility] Chem SGFR/1.73 sq M.predicted among non-blacks MDRD (S/P/Bld) [Vol rate/Area]mL/min/1.73 h8Cvyuzv >=59mL/min/1.73 m2[facility] Chem SGlobulin (S) [Mass/Vol]3.3 g/dLNormal1.4 - 4.0 gm/dLFTMC RemisolGlucose [Mass/Vol]99 mg/iDIgseth85 - 199 mg/dLFTMC Remisol Potassium [Moles/Vol]3.5 mmol/LNormal3.5 - 5.3 mmol/LFTMC RemisolProtein [Mass/Vol]6.9 g/dLNormal6.0 - 7.8 gm/dLFTMC RemisolSodium [Moles/Vol]136 mmol/L Irdxvv230 - 145 mmol/LFTMC RemisolUrea nitrogen [Mass/Vol]8 mg/dLNormal5 - 21 mg/dLFTMC RemisolUrea nitrogen/Creatinine [Mass ratio]13 mg/npLqvenm30 - 20[facility] RemisolHEMATOLOGYOrdered By: SYSTEM SYSTEM on [id number]/100 WBC (Bld) 0.3 %Normal0.0 - 2.0 %[facility] [...] 7.5 E9/LFTMC HemeAutoSSHEMATOLOGYOrdered By: Teena Quiroz on [id number] distribution width (RBC) [Ratio]12.9 %Normal 10.9 - 14.2 %[facility] HemeAutoSSHematocrit (Bld) [Volume fraction]33.6 %Low34.0 - 46.0 %[facility] HemeAutoSSHemoglobin (Bld) [Mass/Vol]11.5 g/dLLow12.0 - 16.0 gm/dL [facility] HemeAutoSSMCH (RBC) [Entitic mass]28.5 atUetlgd38.0 - 34.0 pgFTMC HemeAutoSSMCHC (RBC) [Mass/Vol]34.1 g/uPZzxscj30.4 - 36.0 gm/dLFT HemeAutoSS MCV (RBC) [Entitic vol]83.5 tUGbcumz46.0 - 100.0 fLMER[facility] [place] HemeAutoSSPlatelet mean volume (Bld) [Entitic vol]8.1 fLNormal6.4 - 10.8 fLMERCY [facility] [place] HemeAutoSSPlatelets (Bld) [#/Vol]271.0 E9/DAbvyed791.0 - 500.0 E9/[facility] HemeAutoSSRBC (Bld) [#/Vol] 4.0 E12/LLow4.3 - 5.9 E12/[facility] HemeAutoSSWBC corrected for nucl RBC Auto (Bld) [#/Vol]13.9 E9/LHigh4.0 - 11.0 E9/[facility] HemeAutoSSURINALYSISOrdered By: Deirdre Gilliam on [id number] LM Ql (Urine sed)Trace /HPFNormalTrace/HPFFT UA Auto SSBilirubin Ql (U)Negative (07/14/22 5:00 AM)NormalNegativeMER[facility] [place] Auto SSClarity (U)Clear (07/14/22 5:00 AM)NormalClearFOKLAH[facility] [place] Auto SSColor (U)Yellow (07/14/22 5:00 AM)NormalYellowMERCY [facility]OS[facility] [place] Auto SSEpithelial cells.squamous LM.HPF (Urine sed) [#/Area]3-4 /HPFNormal0-2/HPFFTMC UA Auto SSGlucose Test strip (U) [Mass/Vol]Negative (07/14/22 5:00 AM)NormalNegativeMER[facility] [place] [facility] Auto SSHemoglobin Ql (U)Trace *ABN* (07/14/22 5:00 AM)Invalid Interpretation CodeNegativeMER[facility] [place] Auto SSKetones (U) [Mass/Vol]Negative (07/14/22 5:00 AM)NormalNegativeMER[facility] [place] Auto SSLithium.plasma/[place].RBC (Bld) [Mass ratio]0-3 /HPFNormal0-3/HPFFTMC UA Auto SSMucus Ql (Urine sed)Trace (07/14/22 5:00 AM)NormalMER[facility] [place] Auto SSNitrite Ql (U)Negative (07/14/22 5:00 AM)NormalNegativeMER[facility] [place] Auto SSpH (U)6.0 *NA* (07/14/22 5:00 AM)Invalid Interpretation Code5.0 - 9.0[facility] [place] [facility] Auto SSProtein (U) [Mass/Vol]Negative (07/14/22 5:00 AM)NormalNegativeMER[facility] [place] Auto SSSpecific gravity (U) [Rel density] 1.020 *NA* (07/14/22 5:00 AM)Invalid Interpretation Code1.005 - 1.030[facility] [place] [facility] Auto SSUA Spec DescClean Catch (07/14/22 5:00 AM)NormalMERCY [facility]OS[facility] [place] Auto SSUrobilinogen Qn (U)0.4303905 {[place]'U}/dLNormal0.0 - 1.0 EU/dLMERCY [facility]OS[facility] [place] Auto SSWBC Auto Ql (U)Negative (07/14/22 5:00 AM)NormalNegativeMER[facility] [place] Auto SSWBC LM.HPF (Urine sed) [#/Area]0-5 /HPFNormal0-5/HPFMERCY [facility]OS[facility] [place] Auto SSCHEMISTRYOrdered By: SYSTEM SYSTEM on [id number] [Mass/Vol]4.4 g/dLNormal3.3 - 5.0 gm/dLFTMC Remisol Albumin/Globulin [Mass ratio]1.1 {ratio}Normal1.1 - 2.2[facility] RemisolALP [Catalytic activity/Vol]64 [iU]/hYjgeam46 - 98 Int._Unit/LFTMC RemisolALT No additional P-5'-P [Catalytic activity/Vol]107 [iU]/dHigh6 - 46 Int._Unit/LFTMC RemisolAST [Catalytic activity/Vol]63 [iU]/dHigh5 - 43 Int._Unit/LFTMC Remisol Bilirubin [Mass/Vol]1.5 mg/dLHigh0.0 - 1.1 mg/dLMC RemisolBilirubin.direct [Mass/Vol]0.2 mg/dLNormal0.1 - 0.4 mg/dLFTMC RemisolBilirubin.indirect [Mass or moles/Vol]1.3 mg/dLHigh0.1 - 0.9 mg/dLFTMC RemisolCholesterol [Mass/Vol]193 mg/eCXwsdir452 - 200 mg/dLFTMC RemisolCholesterol in HDL [Mass/Vol]64 mg/dL Invalid Interpretation CodeFTMC RemisolCholesterol in LDL [Mass/Vol]116 mg/dL Normal<=129mg/dLFTMC RemisolCholesterol in VLDL [Mass/Vol]13 mg/dLNormal7 - 40 mg/dLFTMC RemisolGlobulin (S) [Mass/Vol]3.9 g/dLNormal1.4 - 4.0 gm/dLFTMC RemisolProtein [Mass/Vol]8.3 g/dLHigh6.0 - 7.8 gm/dLFTMC RemisolTriglyceride [Mass/Vol]67 mg/dLNormal<=149mg/dLFTMC RemisolCOAGULATIONOrdered By: Courtney Case on 99-73-8091EVO Coag (PPP) [Relative time]1.0 {INR}Invalid Interpretation Code [facility] Auto CoagPT Coag (PPP) [Time]12.4 fCludxj20.2 - 12.9 second(s)[facility] Auto CoagHEMATOLOGYOrdered By: SYSTEM SYSTEM on 84-86-6623Ksxemwsbf/100 WBC (Bld)0.7 %Normal0.0 - 2.0 %[facility] HemeAutoSSBasophils/Leukocytes Auto (Bld) [Pure # fraction]0.0 E9/LNormal0.0 - 0.2 E9/LFTMC HemeAutoSSEosinophils/100 WBC (Bld)3.2 %Normal0.0 - 8.0 %[facility] HemeAutoSSEosinophils/Leukocytes Auto (Bld) [Pure # fraction]0.2 E9/LNormal0.0 - 0.5 E9/LFTMC HemeAutoSSLymphocytes/100 WBC (Bld) 31.9 %Rjqezi09.0 - 50.0 %[facility] HemeAutoSSLymphocytes/Leukocytes Auto (Bld) [Pure # fraction]1.9 E9/LNormal1.0 - 4.0 E9/LFTMC HemeAutoSSMonocytes/100 WBC (Bld)9.1 %Normal4.0 - 14.0 %[facility] HemeAutoSSMonocytes/Leukocytes Auto (Bld) [Pure # fraction]0.5 E9/LNormal0.2 - 1.0 E9/LFTMC HemeAutoSSNeutrophils/100 WBC (Bld) 55.1 %Upxpxe97.0 - 75.0 %[facility] HemeAutoSSNeutrophils/Leukocytes Auto (Bld) [Pure # fraction]3.3 E9/LNormal2.0 - 7.5 E9/LFTMC HemeAutoSSHEMATOLOGYOrdered By: Kayleigh Ward on 86-41-0539Yxcaiitycnq distribution width (RBC) [Ratio]12.9 % Pwcwvb04.9 - 14.2 %[facility] HemeAutoSSHematocrit (Bld) [Volume fraction]40.1 %Normal 34.0 - 46.0 %[facility] HemeAutoSSHemoglobin (Bld) [Mass/Vol]13.2 g/gHQdnhsx01.0 - 16.0 gm/dLFTMC HemeAutoSSMCH (RBC) [Entitic mass]27.7 vjTnpdrg13.0 - 34.0 pgFTMC HemeAutoSSMCHC (RBC) [Mass/Vol]32.8 g/cVHzdaaq97.4 - 36.0 gm/dLFTMC HemeAutoSS MCV (RBC) [Entitic vol]84.3 pXAbirgu77.0 - 100.0 fLFTMC HemeAutoSSPlatelet mean volume (Bld) [Entitic vol]8.5 fLNormal6.4 - 10.8 fLFTMC HemeAutoSSPlatelets (Bld) [#/Vol]299.0 E9/XXykczy734.0 - 500.0 E9/LFTMC HemeAutoSSRBC (Bld) [#/Vol] 4.8 E12/LNormal4.3 - 5.9 E12/LFTMC HemeAutoSSWBC corrected for nucl RBC Auto (Bld) [#/Vol]5.9 E9/LNormal4.0 - 11.0 E9/LFTMC HemeAutoSSLMPon 51-30-6141Grgo risk assessmenta) No falls within the last vllzIM-HJEQT-Ktcxxu 320 Work Phone: Last menstrual period start qcyguzjzduTI-CCLJM-Epozxs 320 Work Phone: Tobacco use status CPHSb) NgNN-PKVNG-Efqowf 320 Work Phone: OB/WIRE ROPE SALES REPRESENTATIVE - Office Visiton 26-24-0898LN/WIRE ROPE SALES REPRESENTATIVE - Office VisitDiagnoses/Problems Assessed Endometriosis (617.9) (N80.9) Orders Start: Orilissa 200 MG Oral Tablet; take 1 tablet by mouth twice a day Provider Impressions 26 yo 1. endometriosis: discussed options continue norethindrone rx'd orilissa 200 mg bid rtc in 3 months Chief Complaint patient here to discuss pain related to endometriosis, declined consulting services project manager. [facility] [employer] History of Present Fzuqiua68 yo presents as a follow up for [...] again engaged x 1 year working at [employer] in [place] Review of Systems Constitutional: no fever, no [...] hours Vitals Vital Signs Recorded: 09Feb2022 11:41AM Hqpjcqky764 Oeqgkzdnk34 Height5 ft 2 in Ixukqu771 lb BMI Aphjqevgkh03.51 kg/m2 BSA Calculated1.61 Tobacco Useb) No Fall [...] NormalUH TouchworksXR KNEE LEFT (MIN 4 VIEWS)on 10-56-4379SD KNEE LEFT (MIN 4 VIEWS)EXAM: XR KNEE [...] abnormality in the left knee. Interpreted by: Joe Lopez MD Signed by: Joe Lopez MD 09/29/21 Final resultNormalMercy Patient'S Choice Medical Center Of Smith CountyOB/WIRE ROPE SALES REPRESENTATIVE - Office Visiton 92-94-1852GI/WIRE ROPE SALES REPRESENTATIVE - Office VisitDiagnoses/Problems Assessed Anxiety (300.00) (F41.9) Orders Start: FLUoxetine HCl - 20 MG Oral Capsule; TAKE 1 CAPSULE Daily Provider Impressions 26 yo 1. endometriosis - discussed treatment options rx'd Prozac for mood rx'd norethindrone rtc in 3 months Chief Complaint patient to follow up on medication from last visit in march 2021, declined consulting services project manager. [employer] History of Present Lrxaoqn51 yo with endometriosis was on norethindrone d/c'd [...] Every 6 hours Vitals Vital Signs Recorded: 84Vir5719 01:19PM Vmsrzjld076 Alnhcdscm25 Height5 ft 2 in Rmxhby054 lb BMI Lmqmewhjpa28.58 kg/m2 BSA Calculated1.53 Tobacco Useb) No Fall Screeninga) No falls within the last year FGA26Fqc7067 Pain Scale0 Signatures Electronically signed by : Charlene Rodriguez DO; Jun 03 2021 10:55AM EST (Author) NormalUH TouchworksChlamydia sp identified Org specific cx Nom (Genital specimen)Ordered By: Jackelyn Dela Cruz on 08-60-6204Itgsxplz Chlamydia Screen NegativeNegativeSumProMedica Flower HospitalHBV surface Ag IA Qlon 67-04-0577Mtzmwguc Hepatitis B Surface AgNegativeNegative, None DetectedSumma HealthHIV 1+2 Ab and HIV1 p24 Ag IA.rapid Nom (S/P/Bld)on 64-80-5435VGV-1/HIV-2 AbNegativeSCleveland Clinic Marymount HospitalNo Panel Informationon 69-20-6753Uyjznnnd Gonorrhea ScreenNegativeNegativeSCleveland Clinic Marymount Hospital External Rubella IGG QuantitationPositiveChildren's Hospital of Columbusmma HealthNo Panel InformationOrdered By: Jackelyn Dela Cruz on 49-85-8441Rorcs HealthReagin Ab RPR Ql (S)on 23-19-7375Whmrwfps RPRNon-ReactiveBorderline, Nonreactive, Weakly Reactive, Equivocalmma HealthOB/WIRE ROPE SALES REPRESENTATIVE - Office Visiton 97-00-9470ST/WIRE ROPE SALES REPRESENTATIVE - Office VisitDiagnoses/Problems Assessed Endometriosis (617.9) [...] for endometriosis PAP per patient 2019 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 -CATY,[employer] LMP 04/11/21 History of Present Jgttybv81 yo with endometriosis bleeding once per month, [...] 2021 11:04AM EST (Author) NormalUH TouchworksTobacco Screening.on 45-76-3188Mqmf risk assessmenta) No falls within the last qyvwSS-TWLLD-Wzwxib 320 Work Phone: Last menstrual period start vvzx42Zzc6925 CL-ERFFV-Kqlvha 320 Work Phone: Tobacco Screening.b) ZoGF-JVDVT-Ztcfzh 320 Work Phone: Radiologyon 66-99-2798TU Kidney - bilateralNormal RU-Eiyysff-Rtgzrzzxv Work Phone: us RENAL BILATon 94-12-1356DK RENAL BILATMRN: [id number] Patient Name: JUHI COPE STUDY: US RENAL BILAT; 04/14/2021 1:14 pm INDICATION: Recurrent UTI. COMPARISON: None. ACCESSION NUMBER(S): [id number] ORDERING CLINICIAN: TERI CHAU TECHNIQUE: Multiple images [...] renal ultrasound. Electronically signed by: GENEVIEVE BREEN MDUPMC Western Psychiatric Hospital Office Visit (Urology)on 28-22-8971Jprfak-up visitDiagnoses/Problems Assessed Recurrent UTI (599.0) (N39.0) Orders Recurrent UTI Start: Nitrofurantoin Monohyd Macro 100 MG Oral Capsule; TAKE 1 CAPSULE Other Please take one capsule after sexual intercourse to prevent UTI Rx By: Teri Chau; Dispense: 30 Days ; #:30 Capsule; Refill: 11;For: Recurrent UTI; ROSY = N; Verified Transmission to [facility] Kidney Bilateral; Status:Hold For - Scheduling; Requested for:94Kjx1858; Perform:[facility] Radiology Services Imaging; Due:44Tuq9766; Last Updated By:Isela Terrazas; 04/01/2021 9:16:17 AM;Ordered; [...] UTI; ROSY = N; Verified Transmission to [facility] Provider Impressions 26 year old female with history of endometriosis presents today via telehealth as a new patient forevaluation of recurrent UTIs. She reports getting UTIs at least once per month, noting occasional nocturia. Symptoms include burning, frequency, and back pain. She states that some UTIs are related to sexual intercourse but most are not. Patient reports she saw Dr. Booth at [facility] in [place], noting she was only treated with medications and urethral dilation for a supposed stricture.Denies gross hematuria. Patient is a non-smoker. Urine culture from [facility] on 03/04/21 was positive for E. [...] other questions at this time. Patricia Stokes, am scribing for and in the presence [...] consent was requested and obtained from JUHI ANATOLIY on this date, 04/01/2021 08:40 AM , for a telehealth visit. NPV - recurrent UTI History of Present Txowpme17 year old female with history of endometriosis presents today via telehealth as a new patient for evaluation of recurrent UTIs. She reports getting UTIs at least once per month, noting occasional nocturia. Symptoms include burning, frequency, and back pain. She states that some UTIs are related to sexual intercourse but most are not. Patient reports she saw Dr. Booth at [facility] in [place], noting she was only treated with medications [...] content not included)...NormalUH TouchworksNM GASTRIC EMPTYING SOLIDon 99-77-8746DM GASTRIC EMPTYING SOLID* * *Final Report* * * DATE OF EXAM: Nov 05 2020 12:26PM [facility] 0017 - NM GASTRIC EMPTYING SOLID / [...] 4 HOURS IS CONSISTENT WITH MILD GASTROPARESIS. City Carrier: PSCB Transcribe Date/Time: Nov 05 2020 1:09P Dictated by : SIDDHARTH PEREA MD This examination was interpreted and the report reviewed and electronically signed by: SIDDHARTH PEREA MD on Nov 05 2020 1:24PM EST [id number] HospitalANES POSTPROC EVALon 08-55-1502NSSE POSTPROC EVALHNO ID: [id number] Author: Austin Story Service: ? Author Type: Anesthesiologist Type: Anesthesia Postprocedure Evaluation Filed: 10/25/2020 2:52 PM Note Text: POST ANESTHESIA EVALUATION NOTE : 1995 Procedure Summary Date: 10/25/20 Room / Location: ENDO 01 / AV ENDO Anesthesia Start: 1324 Anesthesia Stop: 1352 Procedures: COLONOSCOPY (N/A Colon Sigmoid) EGD (N/A Throat) Diagnosis: Gastroesophageal reflux disease without esophagitis Surgeons: Malcolm Arango) Aravind Responsible Provider: Austin Story Anesthesia [...] October 25, 2020 TIME: 2:52 PM CSN: [id number] HospitalANES PRE-OPon 71-57-0761GHWD PRE-OPHNO ID: [id number] Author: Austin Story Service: ? Author Type: Anesthesiologist Type: Anesthesia Preprocedure Evaluation Filed: 10/25/2020 1:09 PM Note Text: ANESTHESIOLOGY DAY OF SURGERY NOTE : 1995 Procedure(s) (LRB): COLONOSCOPY (N/A) EGD (N/A) Surgeon(s): Malcolm Arango) Aravind Estimated body mass index is [...] October 25, 2020 TIME: 1:08 PM CSN: [id number] Medical Center PATHOLOGYon 10-25-2020 SURGICAL PATHOLOGYSpecimen originated from [facility] Specimen #: [id number] Submitting Physician: MALCOLM CRUZ MD FINAL DIAGNOSIS 1. Small bowel, biopsy (A) - Small bowel mucosa with no pathologic diagnostic abnormality; negative for celiac disease, granulomas and dysplasia. 2. Stomach, biopsy (B) - Gastric oxyntic-type mucosa with no pathologic diagnostic abnormality; see comment. /[facility] 10/26/2020 COMMENT 2. No microorganisms morphologically [...] in one cassette. Gross examination performed at [facility], [address] [place], [place] [id number] EJ 10/25/2020 7:59:40 PM Date of Report: 10/26/2020 Date of Procedure: 10/25/2020 Date of Receipt: 10/25/2020 Submitted by: MALCOLM CRUZ MD Location: AVEN Diagnostic interpretation performed at [facility], [address] [facility] [address]. CLIA Number: [id number] Clinic Reference LabComment on above:Performed By: #### S #### See report for performing lab information.SURGICAL PATHOLOGYSpecimen originated from [facility] Specimen #: [id number] Submitting Physician: MALCOLM CRUZ MD FINAL DIAGNOSIS 1. Small bowel, biopsy (A) - Small bowel mucosa with no pathologic diagnostic abnormality; negative for celiac disease, granulomas and dysplasia. 2. Stomach, biopsy (B) - Gastric oxyntic-type mucosa with no pathologic diagnostic abnormality; see comment. /[facility] 10/26/2020 COMMENT 2. No microorganisms morphologically [...] in one cassette. Gross examination performed at [facility], [address] [place] [address] EJL 10/25/2020 7:59:40 PM Date of Report: 10/26/2020 Date of Procedure: 10/25/2020 Date of Receipt: 10/25/2020 Submitted by: MALCOLM CRUZ MD Location: AVEN Diagnostic interpretation performed at [facility], [address] [place] [address]. CLIA Number: [id number] HospitalABO/RH GROUP TESTon 65-27-7633CAH TYPEONoFormerly Albemarle HospitalComment on above: Performed By: #### VERAB #### [facility] [address] [id number] TYPEPositiveNoFormerly Albemarle HospitalComment on above: Performed By: #### VERAB #### [facility] [address] [id number] Surgical Pathology Departmenton 50-59-1137Zyrgh Surgical Pathology DepartmentNamkiesha SUNILJUHI NIX Pathologist: ASHLEY HURTADO MD Date of Procedure: 09/01/2020 Date Received: 09/01/2020 Date Reported 09/03/2020 Submitting Physician: CHARLENE RODRIGUEZ D.O. Location: [facility] External # FINAL DIAGNOSIS A. LEFT [...] D. Right pelvic sidewall peritoneum are 2 zqmh-lri-gmc, irregular fragments of tissue measuring 1.3 x [...] in toto in one cassette. SB amisha/09/02/2020 [facility] Department of Pathology [address] [id number] Albemarle HospitalComment on above:Performed By: #### [facility] #### [facility] Surgical Pathology Department [address] [place], [place] [id number] and Physical - Surgery > 30 dayson 63-39-3108Gwpfzvw and Physical - Surgery > 30 daysHistory [...] T&S: O+, COVID-19: negative OB Hx: None. Bulk Gas Specialist Hx: As above. PMHx: endometriosis Surg Hx: diagnostic laparoscopy, appendectomy (2016) Meds: Meloxicam, Luquillo-Linyah, Norethindrone acetate Social Hx: No tobacco, no [...] the note. I personally evaluated the patient [id number]-Zjw-8106 Attending Provider Inpatient Certification StatementObservation patient/other outpatient visits Electronic Signatures: Charlene Rodriguez () (Signed 01-Sep-2020 10:04) Authored: Note Completion Co-Signer: History of Present Illness, Home Medication Review, Impression/Procedure, ERAS, Physical Exam, Consent, Note Completion Chelsie Leal (Resident)) (Signed 31-Aug-2020 15:44) Authored: History of Present Illness, Home Medication Review, Impression/Procedure, ERAS, Physical Exam, Consent, Note Completion Last Updated: 01-Sep-2020 10:04 by Charlene Rodriguez ()[facility] Medical CenterHomegoing Instructionson 83-78-1729Sufjzldtj InstructionsAdditional Instructions: Handouts Given: Topic 1Anesthesia Homegoing Instructions Topic 2Surgical Site Infection Handout Topic 3New Medication Education Topic 4Suggamedex handout Electronic Signatures: Aminata Gomez) (Signed 01-Sep-2020 16:07) Authored: Additional Instructions Last Updated: 01-Sep-2020 16:07 by Aminata Gomez (DIALLO)[facility]ner Medical CenterPatient Profile - Preop v2on 99-82-6461Pjfubuc Profile - Preop u6Qbtbjlq: Initial Info: How to be Addressedalexis Spoken Language PreferredEnglish Are you currently using the Personal Electronic Health Record or [employer] Stated Reason for Admissionseeing if my endometriosis is back Primary Contact Name and Numberlogan [phone] Patient Belongingsclothing locker glasses with bf Medications Brought to Hospitalno General Health: Weight in kg55.6 kilogram(s) Weight in hsp671.5 pound(s) Weight Methodactual (measured) Scale Typestanding Height [...] Arrangementshouse Lives Withparent(s) Resource/Environmental Concernsnone Anticipated Transition [place] Anticipated at Transitionnone Substance: Current or [...] Learning Preferencesverbal instruction Cultural Considerationsnone Developmental Considerationsnone Religion Considerationsnone Other learner availableno Falls RiskPatient location [...] Physical - Surgery > 30 days 01-Sep-2020 03:42[facility] Medical CenterPreop Checkliston 41-27-4955Wgvfh Checklist Preop Checklist: Preop Checklist: Arrival Nyjk45-Fre-2234 Arrival Time12:30 Procedure Typelaparoscopic endometriosis excision NPO Mgaqug91-Sgx-3355 00:00 ID Band Onyes Allergy Bandno known [...] Last Updated: 01-Sep-2020 12:35 by Sierra Kraft (DIALLO)[facility]ner Medical CenterANTIBODY IDENT.on 48-50-5164ISVJTSGJ IDENT.SEE BELOWHardtner Medical CenterComment on above:Result Comment: NO CLINICALLY SIGNIFICANT ANTIBODIES IDENTIFIED.Performed By: #### ABID #### [facility] [address] [place], [place] [address]RVMax 00-84-8968Gmkobakkuqe distribution width (RBC) [Ratio] 12.1 %Jbqkld52.5 - 14.5Hackensack University Medical CenterComment on above:Performed By: #### CBC #### [address] [id number] (Bld) [Volume fraction]39.6 %Sdcapu39.0 - 46.0H[facility] University Medical CenterComment on above:Performed By: #### CBC #### [address] [id number] (Bld) [Mass/Vol]12.6 g/pVYiudfa01.0 - 16.0H[facility] University Medical CenterComment on above:Performed By: #### CBC #### [address] [id number] (RBC) [Mass/Vol]31.8 g/dLLow32.0 - 36.0H[facility] University Medical CenterComment on above:Performed By: #### CBC #### [address] [id number] (RBC) [Entitic vol]90 jYUfmewf04 - 100H[facility]ens[facility] University Medical CenterComment on above:Performed By: #### CBC #### [address] [id number] (Bld) [#/Vol]333 10*3/gJRegfcb235 - 450H[facility] University Medical CenterComment on above:Performed By: #### CBC #### [address] [id number] x10E12/LNormal4.00 - 5.20[facility] Comment on above:Performed By: #### CBC #### [address] [id number] (Bld) [#/Vol]5.6 10*3/uLNormal4.4 - 11.3H[facility] University Medical CenterComment on above:Performed By: #### CBC #### [address] [id number] 2019, SCREEN ASYMPTOMATICon 21-92-8452XUSH-CoV-2 (COVID-19) RNA TENA+probe Ql (Unsp spec)Not detectedNormalNot DetectedHackensack University Medical CenterComment on above:Result Comment: This assay [...] patient management decisions. Fact sheet for providers: https://www.fda.gov/media/124183/download Fact sheet for patients: https://www.fda.gov/media/464711/download This test has received FDA Emergency Use Authorization (EUA) and has been verified by [facility] ([facility]). This test is only authorized for the duration of time that circumstances exist to justify the authorization of the emergency use of in vitro diagnostic tests for the detection of SARS-CoV-2 virus and/or diagnosis of COVID-19 infection under section 564(b)(1) of the Act, 21 U.S.C. 360bbb-3(b)(1), unless the authorization is terminated or revoked sooner. [facility] is certified under CLIA-88 as qualified to perform high complexity testing. Testing is performed in the [facility] laboratories located at [address] [place] [address].Performed By: #### COVSC #### [place], [place] [address]Lab Specimen SourceNasal, NasopharyngealNoMt. San Rafael HospitalComment on above:Performed By: #### COVSC #### [place], [place] [address]TYPE + SCREENon 67-05-0310YZR [facility] HEALTHCAREONoFormerly Albemarle HospitalComment on above:Performed By: #### T+S #### [facility] [address] [id number] TYPEPositiveHardtner Medical CenterComment on above: Performed By: #### T+S #### [facility] [address] [place], [place] [address]YVR TYPECanceledNoMt. San Rafael HospitalComment on above:Order Comment: TEST TYPE + SCREEN WAS CANCELLED, 08/30/2020 13:37 JOP. Performed By: #### T+S #### [facility] [address] [place], [place] [address]JF TYPECancelChildren's MinnesotaComment on above:Order Comment: TEST TYPE + SCREEN WAS CANCELLED, 08/30/2020 13:37 JOP. Performed By: #### T+S #### [facility] [address] [place], [place] [address]OANHuz 21-46-8847VPRRXvakmwo:Juhi Cope MRN: Height:5' 2 (1.575 m) Weight:120 [...] for the following basenames: K,HCT Progress Notes ([facility] REJ AV4): Jaquelin [place] Ma [...] 1 10 oz. Bottle of Magnesium Citrate (Lemon/[place]) ? A test for COVID 19 test [...] toast without seeds (not multigrain); pretzels; waffles, Emirati toast and pancakes; white rice, noodles, pasta, macaroni, peeled cooked potatoes; Special K, Rice Krispies or [place] Flakes cereals; ripe bananas; melons (except watermelon [...] carbonated beverages such as chi aislinn or lemon-table mountain soda; Gatorade? or other sports drinks [...] sure you have a responsible adult route driver salesperson to take you home after procedure. Due to having sedation, you may not drive the rest of the day. ? If you need to reschedule, please call [phone] ?Date/Provider Dr Cruz Procedure:colonoscpy Facility:[facility] Prep ordered( if aware):miralax Knowledge of prep instructions:posted to [employer] Diabetic:no Blood Thinners:no Pacemaker with defibrillator:no left message for patient to return call. Nurse triage please give below message. PLEASE READ PATIENT INSTRUCTIONS BELOW. THANK YOU.James B. Haggin Memorial HospitalPROGRESS on 28-37-1483VEAVGFJYOEV ID: [id number] Author: Leon Perkins (Rt) Fito Blanchard Service: Radiology Author Type: Pattern Data Operator Type: Progress Notes Filed: 07/29/2020 11:06 [...] BY: RT Daya July 29, 2020 11:01 [facility] HospitalXR ABD 2V SUPINE W UPR/DECUB/CTLon 19-46-1225WI ABD 2V SUPINE W UPR/DECUB/CTL* * *Final [...] structures are normal. No other significant abnormality. City Carrier: DAVID Transcribe Date/Time: Jul 29 2020 11:19A Dictated by : LALI ORNELAS MD This examination was interpreted and the report reviewed and electronically signed by: LALI ORNELAS MD on Jul 29 2020 11:19AM EST [id number] Hospital Vital Signs Date TimeVital SignValuePerforming MremzqlbxUuliwfhd54-46-5029 16:04-0400Body mass index (BMI) [Ratio]29.78 kg/d8Pjeex Kiesha DO Work Phone: [facility] HospitalMjquxlyhhq82-42-2009 16:04-0400Body erpfed58.85 kgCoreMurphy Army HospitalWorkube Work Phone: [phone]itan HospitalLsspvhrnhk53-13-2412 16:04-0400Diastolic blood dmpgjvyy83 mm[Hg]Nathan KieshaUNM Children's Hospital Work Phone: [phone] [place], [place] [address]Wfrtfckcba14-87-4127 16:04-0400Systolic blood jiucolgg319 mm[Hg][facility] Work Phone: [facility]itan HospitalZaoxnqjjvl35-16-7793 10:34-0400Body mass index (BMI) [Ratio]29.26 kg/m4FjsylyghMadhuri Monroy MD Work Phone: [phone] [place], [place] [address]10-16-2025 10:34-0400Body .58 kgMadhuri Monroy MD Work Phone: [phone] [place], [place] [address]-16-2025 10:34-0400Diastolic blood afcocysl11 mm[Hg]Madhuri Monroy MD Work Phone: [phone] [place], [place] [address]-16-2025 10:34-0400Systolic blood dmehqyfc052 mm[Hg]Madhuri Monroy MD Work Phone: [phone] [place], [place] [address]-10-2025 14:48-0400Body pvxmoz605.5 cmMine Denise MD Work Phone: [phone] [place], [place] [address]-10-2025 14:48-0400Body mass index (BMI) [Ratio]29.04 kg/q0GiivqoMine Denise MD Work Phone: [phone] [place], [place] [address]10-10-2025 14:48-0400Body susvpd05.03 kgMine Denise MD Work Phone: [phone] [place], [place] [address]10-10-2025 14:48-0400Diastolic blood mm[Hg]Mine Denise MD Work Phone: [phone] [place], [place] [address]-10-2025 14:48-0400Heart rate 104 /minMine Denise MD Work Phone: [phone] [place], [place] 27[address]10-10-2025 14:48-0400Systolic blood ottiilme386 mm[Hg]Mine Denise MD Work Phone: [phone] [place], [place] [address]10-09-2025 15:54-0400Body mass index (BMI) [Ratio]29.41 kg/o3Qqxghkkg Elsa MANAGER MANAGING Work Phone: [phone]10-09-2025 15:54-0400Body rsmewm13.94 kgKristina Elsa MANAGER MANAGING Work Phone: [phone] [place], [place] 39[address]10-09-2025 15:54-0400Diastolic blood mm[Hg]Steph Elsa MANAGER MANAGING Work Phone: [phone] [place], [place] [address]10-09-2025 15:54-0400Systolic blood yodhkdtd884 mm[Hg]Steph Elsa MANAGER MANAGING Work Phone: [phone] [place], [place] [address]10-02-2025 15:37-0400Body mass index (BMI) [Ratio]29.23 kg/d5Thlsvyvw Elsa MANAGER MANAGING Work Phone: [phone] [place], [place] [address]Prhhccpert62-71-2199 15:37-0400Body hbkgci57.48 kgKrdavea Elsa MANAGER MANAGING Work Phone: [phone]10-02-2025 15:37-0400Diastolic blood owjrugbj37 mm[Hg]Steph Elsa MANAGER MANAGING Work Phone: [place] [address]Oowuhsovlc64-42-8007 15:37-0400Systolic blood erwrggyx774 mm[Hg]Steph Elsa MANAGER MANAGING Work Phone: [facility]Twilww[facility]obs43-[facility]-7697 15:55-0400Body mass index (BMI) [Ratio]29.45 kg/g4Wfvvxu Frey RN Work Phone: [phone]09-29-2025 15:55-0400Body wlfwbi22.03 kgAngejose roberto Sarmiento RN Work Phone: [phone]09-17-2025 14:32-0400Body mass index (BMI) [Ratio]27.82 kg/p9Pqpti Kiesha DO Work Phone: [facility] HospitalGbtuwvvqxc61-23-3982 14:32-0400Body wxvuxj70 kg Nathan Kiesha DO Work Phone: [phone] [place], [place] [address]Zcchyiuhmc31-91-0015 14:32-0400Diastolic blood dzcvgfoj55 mm[Hg]Nathan Kiesha DO Work Phone: [place] [address]Hogwurdenm39-58-4887 14:32-0400Systolic blood aavtkhxe092 mm[Hg]Nathan Kiesha DO Work Phone: [facility] HospitalWjagishlds20-56-5927 15:36-0400Body andpxx150.5 cmGeorge Kaftan DO Work Phone: [facility] HospitalUgqwwuayaa77-76-8170 15:36-0400Body mass index (BMI) [Ratio]27.62 kg/g8Dssifu Kaftan DO Work Phone: [place] [address]Eidrfntfga19-41-1663 15:36-0400Body temperature 97.11 [degF]Eliceo Porterftan DO Work Phone: [place] [address]Xsfkjpkdgv14-63-2914 15:36-0400Body ayazsg29.49 kgGeorge Kaftan DO Work Phone: [place] [address]Hwabkkuvax77-98-6702 15:36-0400Diastolic blood ptuvthli74 mm[Hg]Eliceo Beltran DO Work Phone: NO[facility] HealthcareQdsfgycrei36-04-6659 15:36-0400Heart rate97 /min Eliceo Beltran DO Work Phone: NO[facility] HealthcareFxirzivtfa34-89-6089 15:36-6608JbY8% (BldA) [Mass fraction]98 %Eliceo Beltran DO Work Phone: NO[facility] HealthcareUrgobizslb23-98-4073 15:36-0400Systolic blood bbfjkmxe964 mm[Hg]Eliceo Beltran DO Work Phone: [facility] HospitalJwuhbhwsbp22-89-9935 15:42-0400Body mass index (BMI) [Ratio]26.48 kg/g3Krbeq Fazio DO Work Phone: [facility] HospitalIcclvaffdp68-54-3798 15:42-0400Body yrhvey60.68 kgCorepearl Cabrerao DO Work Phone: [facility] HospitalUzglyjofmy81-80-5786 15:42-0400Diastolic blood hvtxwomh22 mm[Hg]Nathan Cabrerao DO Work Phone: [facility] HospitalBgbwcruwyn45-89-9665 15:42-0400Systolic blood ainuabgn898 mm[Hg]Nathan Cabrerao DO Work Phone: [facility] HospitalYbhaqvliab31-62-7397 14:33-0400Body mass index (BMI) [Ratio]26.73 kg/f2Pvhgv Kiesha DO Work Phone: [facility] HospitalIeoroshxsq04-76-9504 14:33-0400Body mhgaxt12.28 kgCorey Kiesha DO Work Phone: [facility] HospitalKwvrxleywh69-17-3573 14:33-0400Diastolic blood wcdbuqfh86 mm[Hg]Nathan Kiesha DO Work Phone: [facility] HospitalPcvkjkbzkg51-54-9797 14:33-0400Systolic blood mm[Hg]Nathan Kiesha DO Work Phone: [facility] HospitalBbctpsnjhb03-18-2995 14:45-0400Body mass index (BMI) [Ratio]25.24 kg/u3Ycrtn Kiesha DO Work Phone: [facility] HospitalGtvltjyyrw20-03-0413 14:45-0400Body nuqikq66.6 kg Nathan Kiesha DO Work Phone: [facility] HospitalBsqspqyfuy39-54-3660 14:45-0400Diastolic blood whjrszqo02 mm[Hg]Nathan Kiesha DO Work Phone: [facility] HospitalDtjbtbymqw83-53-6491 14:45-0400Systolic blood nyznjtcx284 mm[Hg]Nathan Kiesha DO Work Phone: [facility] HospitalDrtgvywdeg01-89-6453 10:29-0400Body mass index (BMI) [Ratio]25.68 kg/m2[facility]06-06-2025 10:29-0400Body nofajl86.69 [facility]-2025 15:08-0500Body mass index (BMI) [Ratio]25.99 kg/x5Ghmal Kiesha DO Work Phone: [facility] HospitalLqgekctmvk21-95-8087 15:08-0500Body gestbn82.47 kgCorey Kiesha DO Work Phone: [facility] HospitalOopszrlrfp98-89-8371 15:08-0500Diastolic blood hvtgstei49 mm[Hg]Nathan Kiesha DO Work Phone: [facility] HospitalUjskmgzstk72-42-2495 15:08-0500Systolic blood rvynhlbj438 mm[Hg]Nathan Kiesha DO Work Phone: [facility] HospitalApafacqokv23-81-7689 15:53-0500Body kmogbp714.5 cmGeorge Charlotteftan DO Work Phone: NO[facility] HealthcareXpwiialvvy34-61-6887 15:53-0500Body mass index (BMI) [Ratio]25.61 kg/k4Vdpamw Charlotteftan DO Work Phone: NO[facility] HealthcareQdfuuugtwd07-16-0270 15:53-0500Body temperature 97.11 [degF]Eliceo Beltran DO Work Phone: no[facility] HealthcareTwnfutbdhi57-19-4855 15:53-0500Body .5 kg Eliceo Beltran DO Work Phone: [facility] HospitalPnfypzxunv54-10-6132 15:53-0500Diastolic blood mm[Hg]Eliceo Beltran DO Work Phone: [facility] HospitalJfpjrsmuxk08-58-6834 15:53-0500Heart rate51 /min Eliceo Beltran DO Work Phone: [facility] HospitalLyxqexexhn60-93-1606 15:53-6713BtA8% (BldA) [Mass fraction]98 %Eliceo Beltran DO Work Phone: no[facility] HealthcareCvsoapkdpy58-63-8489 15:53-0500Systolic blood drzcewqi805 mm[Hg]Eliceo Beltran DO Work Phone: [facility] HospitalHaegcduhvm11-36-6933 11:15-0400Body mass index (BMI) [Ratio]25.97 kg/e0Hknma Kiesha DO Work Phone: [facility] HospitalKjyahmdlru39-35-6491 11:15-0400Body qrrgax68.41 kgCorey Kiesha DO Work Phone: [facility] HospitalJkotkkgcir19-38-2348 11:15-0400Diastolic blood rurlpwos99 mm[Hg]Nathan Kiesha DO Work Phone: [facility] HospitalWosgjycgmd77-47-8542 11:15-0400Systolic blood nsygzumx341 mm[Hg]Nathan Kiesha DO Work Phone: [facility] HospitalQvvwjmbzib41-08-7758 10:02-0400Body mass index (BMI) [Ratio]25.39 kg/z5Ycvyk Kiesha DO Work Phone: [facility] HospitalRgdafeoafc12-60-2471 10:02-0400Body .96 kgCorey Kiesha DO Work Phone: [facility] HospitalTwqkosihcf55-00-6965 10:02-0400Diastolic blood tknbvcgo60 mm[Hg]Nathan Kiesha DO Work Phone: [place] [address]Tudynoojly82-35-4738 10:02-0400Systolic blood mm[Hg]Nathan Kiesha DO Work Phone: [phone] [place], [place] [address]Uyvsjymsib53-05-6425 10:55-0500Body mass index (BMI) [Ratio]28.17 kg/x5Npego Kiesha DO Work Phone: [phone] [place], [place] [address]Rgreijbdyt12-09-1546 10:55-0500Body wawbrw79.85 kgCorey Kiesha DO Work Phone: [phone] [place], [place] [address]Svmdtgkykz99-88-2922 10:55-0500Diastolic blood xlhusjvq46 mm[Hg]Nathan Kiesha DO Work Phone: [phone] [place], [place] [address]Xyqytbxrse74-04-5893 10:55-0500Systolic blood hqtawrwj734 mm[Hg]Nathan Kiesha DO Work Phone: [phone] [place], [place] [address]Wkoqyiryxn95-56-0228 17:31-0400Body temperature 98.96 [degF][facility] [address] [place], [place] 5540910-18-2023 17:31-0400 Diastolic blood vrnxrgxy05 mm[Hg][facility] [address] [place], [place] 5540910-18-2023 17:31-7528OTO3 99 %[facility] [address] [place], [place] 5540910-18-2023 17:31-0400Heart occe285 /minV[facility] [place] [address] [place], [place] 5540910-18-2023 17:31-0400 Respiratory rate16 /minV[facility] [address] [place], [place] 5540910-18-2023 17:31-0400 Systolic blood elninqds601 mm[Hg][facility] [address] [place], [place] 5540906-06-2023 10:55-0400Body oepsgy286.5 Yelitza Downs APRN.CNP Work Phone: c[facility] HospitalNztimx88-69-6020 10:55-0400Body .86 kgErin Reaper FOOD SERVICE STEWARD.RAWHIDE B[employer] ROLLER Work Phone: [place] Ukzmyt99-05-5469 10:55-0400Diastolic blood etssrurg30 mm[Hg]Jihan Reaper FOOD SERVICE STEWARD.RAWHIDE B[employer] ROLLER Work Phone: [place] Affbns46-72-8295 10:55-0400Systolic blood ufowyitx668 mm[Hg]Jihan Reaper FOOD SERVICE STEWARD.RAWHIDE B[employer] ROLLER Work Phone: [place] Buyzcd08-96-5819 19:18-0500Diastolic blood swijlejq27 mm[Hg][facility]03-08-2023 19:18-0500Heart rate98 /min[facility]03-08-2023 19:18-0500Nursing Progress Note ReasonOther: this RN discharged pt. pt verbalizes understanding and denies questiosn prior to discharge.[facility]03-08-2023 19:18-0500Respiratory rate16 /min[facility]03-08-2023 19:18-6709HeY3% (BldA) [Mass fraction]100 %[facility]03-08-2023 19:18-0500 Systolic blood uaegdwgf572 mm[Hg][facility] 01-31-2023 18:00-0500Diastolic blood kymiwlsz66 mm[Hg][facility]03-08-2023 18:00-0500Heart hzjj120 /min[facility]03-08-2023 18:00-0500Mean blood ddzvkuhq945 mm[Hg][facility]03-08-2023 18:00-2319ZrH3% (BldA) [Mass fraction]99 %[facility]03-08-2023 18:00-0500 Systolic blood ohjcmsuj342 mm[Hg][facility] 01-31-2023 17:00-0500Diastolic blood oswgvqcb06 mm[Hg][facility]03-08-2023 17:00-0500Mean blood duyiejdz389 mm[Hg][facility]03-08-2023 17:00-0500Systolic blood pressure 117 mm[Hg][facility]03-08-2023 16:38-0500Heart vvcn516 /min[facility]03-08-2023 16:38-0500Mean blood vnxrpmag112 mm[Hg][facility]03-08-2023 16:38-0500Respiratory rate18 /[facility] 01-31-2023 13:49-0500Body cvcnzhfjoit67.88 [degF][facility]03-08-2023 13:49-0500Heart ochd577 /[facility]02-04-2023 14:55-0500Body kpgdmuuujbi18.88 [degF][facility]02-04-2023 14:55-0500Diastolic blood yzlbioqj90 mm[Hg][facility]02-04-2023 14:55-0500Heart rate84 /min[facility]02-04-2023 14:55-0500Mean blood erfhtukv799 mm[Hg][facility]02-04-2023 14:55-0500Respiratory rate20 /min[facility]02-04-2023 14:55-4896KxU9% (BldA) [Mass fraction]98 %[facility]02-04-2023 14:55-0500Systolic blood pressure 137 mm[Hg][facility]02-04-2023 14:35-0500Body jngncohyzhl29.88 [degF][facility]02-04-2023 14:35-0500Diastolic blood etuyljmv87 mm[Hg][facility]02-04-2023 14:35-0500Heart rate82 /min[facility]02-04-2023 14:35-0500Mean blood yhsetyeq71 mm[Hg][facility]02-04-2023 14:35-0500Respiratory rate16 /[facility]02-04-2023 14:35-0021MbI5% (BldA) [Mass fraction]97 %[facility]02-04-2023 14:35-0500Systolic blood nfezzvrt385 mm[Hg][facility]02-04-2023 13:35-0500Body ekocnjyoydp64.88 [degF][facility]02-04-2023 13:35-0500Diastolic blood vugtwooc47 mm[Hg][facility]02-04-2023 13:35-0500Heart rate80 /[facility]02-04-2023 13:35-0500Mean blood tzjkqucf99 mm[Hg] [facility]02-04-2023 13:35-0500Respiratory rate 17 /min[facility]02-04-2023 13:35-6968VuC1% (BldA) [Mass fraction]96 %[facility]02-04-2023 13:35-0500Systolic blood gvmvroyv670 mm[Hg][facility]02-04-2023 13:00-0500Respiratory rate12 /min[facility]02-04-2023 12:55-0500Respiratory rate9 /minAstrit [facility]02-04-2023 12:50-0500Respiratory rate10 /minAstrit [facility]02-04-2023 08:15-0500Body .24 [degF] [facility]02-04-2023 08:15-0500Heart jwaa850 /minAstrit [facility]01-07-2023 13:41-0500Body euonbgileou73.2 [degF]Kathe Ryder DO Work Phone: [facility], IncLgkviy47-41-4482 13:41-0500Diastolic blood fpphdbas13 mm[Hg]Kathe Ryder DO Work Phone: [facility], IncEswsik91-83-7144 13:41-0500Heart zdih303 /min Kathe Ryder DO Work Phone: [facility], IncGkbozp54-93-3716 13:41-0500Respiratory rate18 /minKathe Ryder DO Work Phone: [facility], IncCwtgng84-59-9692 13:41-0476NfU9% (BldA) [Mass fraction]99 %Kathe Ryder DO Work Phone: [facility], IncBltnqp25-73-1672 13:41-0500Systolic blood ftanjatw015 mm[Hg]Kathe Ryder DO Work Phone: [facility], IncWrfgin01-47-2585 00:45-0500Body dqfewi933.5 cm Kathe Ryder DO Work Phone: [facility], IncXrdgfd22-57-5290 00:45-0500Body mass index (BMI) [Ratio]25.61 kg/e4IfprjptmrKathe Ryder DO Work Phone: [facility], IncDdmmlh00-87-2542 00:45-0500Body .5 kg Kathe Ryder DO Work Phone: [facility], IncLzidnf20-86-1780 22:26-0500Hourly Rounding Fredi DORSEY [address] [place], [place] [address]Comment on above:Result Comment: ensured that all pt belongings are sent with pt. pt has no questions or concerns. report given to EMS. pt stable and no s/s of distress. pt off unit to wiubsboy41-56-7263 22:00-0500Diastolic blood gepgrmeb62 mm[Hg]Fredi KARASIK [address] [place], [place] 1885301-02-2023 22:00-0500Heart aygr011 /minGregory KARASIK [address] [place], [place] 1885301-02-2023 22:00-0500 Hourly RoundingGregory KARASIK [address] [place], [place] 1885301-02-2023 22:00-0500Mean blood qsjcraah440 mm[Hg]Fredi KARASIK [address] [place], [place] 1885301-02-2023 22:00-0500 Systolic blood pjcsnrfa034 mm[Hg]Fredi KARASIK [address] [place], [place] 1885301-02-2023 21:50-0500Blood Pressure LocationGregory KARASIK [address] [place], [place] 1885301-02-2023 21:50-0500 Diastolic blood nqpzbvsy74 mm[Hg]Fredi KARASIK [address] [place], [place] 1885301-02-2023 21:50-0500Heart jckr955 /minGregory KARASIK [address] [place], [place] 1885301-02-2023 21:50-0500 Hourly RoundingCjory KARASIK [address] [place], [place] 1885301-02-2023 21:50-0500Mean blood mm[Hg]Fredi KARASIK [address] [place], [place] 1885301-02-2023 21:50-0500 Respiratory rate18 /minCjory KARASIK [address] [place], [place] 1885301-02-2023 21:50-1181OkW0% (BldA) [Mass fraction]98 %Fredi DORSEY [address] [place], [place] 1885301-02-2023 21:50-0500 Systolic blood ztodiwmy091 mm[Hg]Fredi SCHUMACHERASIK [address] [place], [place] 1885301-02-2023 21:37-0500Blood Pressure LocationFredi DORSEY [address] [place], [place] 1885301-02-2023 21:37-0500 Diastolic blood mm[Hg]Fredi ABREUK [address] [place], [place] 1885301-02-2023 21:37-0500Heart fntg666 /minFredi DORSEY [address] [place], [place] 1885301-02-2023 21:37-0500Mean blood nwdlojij598 mm[Hg]Fredi DORSEY [address] [place], [place] 1885301-02-2023 21:37-8583SqD9% (BldA) [Mass fraction]97 %Fredi DORSEY [address] [place], [place] 1885301-02-2023 21:37-0500 Systolic blood oxcrhwhb016 mm[Hg]Fredi ABREUK [address] [place], [place] 1885301-02-2023 21:30-0500Blood Pressure LocationFredi DORSEY [address] [place], [place] 1885301-02-2023 21:30-0500Body gawywnvhbgd50.6 [degF]Fredi KARASIK [address] [place], [place] 1885301-02-2023 19:00-0500Body ysekptybicw82.24 [degF]Fredi KARASIK [address] [place], [place] 1885301-02-2023 17:15-0500Body papzniqaums89.06 [degF]Fredi KARASIK [address] [place], [place] 1885301-02-2023 14:02-0500Heart rate99 /minGregory KARASIK [facility]08-19-2022 07:00-0400Body jctaqhnsvek47.6 [degF]Kaylinn Dokken [address] [place], [place] 2758908-19-2022 07:00-0400 Diastolic blood ntojrlnx51 mm[Hg]Kaylinn Dokken [address] [place], [place] 2758908-19-2022 07:00-0400Heart rate80 /minKaylinn Dokken [address] [place], [place] 2758908-19-2022 07:00-0400Mean blood sethrbda71 mm[Hg]Kaylinn Dokken [address] [place], [place] 2758908-19-2022 07:00-0400 Respiratory rate17 /minKaylinn Dokken [address] [place], [place] 2758908-19-2022 07:00-0400 Systolic blood mm[Hg]Kaylinn Dokken [address] [place], [place] 2758908-19-2022 06:07-0400Body fscsiwtwpjk57.24 [degF]Kaylinn Dokken [address] [place], [place] 2758908-19-2022 06:07-0400 Diastolic blood lhxwsoyt02 mm[Hg]Kaylinn Dokken [address] [place], [place] 2758908-19-2022 06:07-0400Heart rate90 /minKaylinn Dokken [address] [place], [place] 2758908-19-2022 06:07-0400 Respiratory rate18 /minKaylinn Dokken [address] [place], [place] 2758908-19-2022 06:07-7140VsN4% (BldA) [Mass fraction]100 %Kumar Villagomez [facility]08-19-2022 06:07-0400 Systolic blood sujtutko995 mm[Hg]Kumar Villagomez [facility]08-19-2022 05:30-0400 Hourly RoundingCorey KIESHA [facility] HospitalComment on above:Result Comment: Pt discharged per physician orders. Pt ambulates off unit with a steady hfwr82-35-3633 05:15-0400Diastolic blood mm[Hg]Nathan KIESHA [facility]08-19-2022 05:15-0400Heart vnqg097 /minCorey KIESHA [facility]08-19-2022 05:15-0400 Hourly RoundingCorey KIESHA [facility]08-19-2022 05:15-0400Mean blood mjuissdv47 mm[Hg]Nathan KIESHA [facility]08-19-2022 05:15-0400 Respiratory rate18 /minCorey KIESHA [facility]08-19-2022 05:15-0400 Systolic blood gjqsqdbu030 mm[Hg]Nathan KIESHA [facility]05-24-2022 11:00-0400Body jxidgt559.02 cmCameron Carroll Other [employer] Other 05-24-2022 11:00-0400Body mass index (BMI) [Ratio] 23.03 kg/o9Mrpktxo Carroll Other [employer] Other 05-24-2022 11:00-0400Body .97 kgDomo Hodges Other [facility] Other 03-17-2022 11:41-0400Body ttylbi646.48 cmMegan Billow DO Work Phone: [phone]()[phone]-PJLUL-[address] Work Phone: [phone] 11:41-0400Body mass index (BMI) [Ratio] 24.51 kg/l7Wezuw Billow DO Work Phone: [phone]()[phone]-TTGDK-[address] Work Phone: [phone]()[phone] 11:41-0400Body surface area Derived from formula1.61 j1Vixbr Billow DO Work Phone: 1()[phone]-ZMPQW-[address] Work Phone: [phone]()[phone] 11:41-0400Body .78 kgMegan Billow DO Work Phone: [phone]()[phone]-NKJGG-[address] Work Phone: [phone]()[phone] 11:41-0400Diastolic blood lelxxdkf77 mm[Hg] Charlene Billow DO Work Phone: [phone]()[phone]-EUBRV-[address] Work Phone: [phone]()[phone] 11:41-0400Systolic blood kxtytetq881 mm[Hg] Charlene Billow DO Work Phone: JC-CCIAG-[address] Work Phone: [phone]()[phone] 11:41-21488 1Megan Billow DO Work Phone: AU-VBMXO-[address] Work Phone: Comment on above:ALNGMFNQOtygOrpnh60-41-8098 14:53-0400Body lijkjr767.48 cmMegan Billow DO Work Phone: PI-DBDRN-[address] Work Phone: [phone] 14:53-0400Body mass index (BMI) [Ratio] 21.77 kg/s3Fewsy Billow DO Work Phone: MP-SAQTC-[address] Work Phone: [phone] 14:53-0400Body surface area Derived from formula1.53 n9Kxctj Billow DO Work Phone: LT-FUDTR-[address] Work Phone: [phone] 14:53-0400Body .98 kgMegan Billow DO Work Phone: BV-SVFLH-[address] Work Phone: [phone] 14:53-0400Diastolic blood roepvlpy97 mm[Hg] Charlene Billow DO Work Phone: QU-DBWGU-[address] Work Phone: [phone] 14:53-0400Heart cgkp645 /minMegan Billow DO Work Phone: OB-JPHXW-[address] Work Phone: [phone] 14:53-0400Systolic blood czdxpyyx359 mm[Hg] Charlene Billow DO Work Phone: FC-USCRW-[address] Work Phone: [phone] 14:53-03461 1Megan Billow DO Work Phone: KL-QHNHA-[address] Work Phone: [phone] on above:GRAVPARAPainScale Encounters Encounter DateEncounter TypeCare ProviderFacilityStart: 09-21-2025 End: 97-56-1797yaahwkelneMdvqech E Lavoy PA-C Work Phone: [phone]-Quzpe Medicine at [facility] Comment on above:Insulin controlled gestational diabetes mellitus (GDM) in third trimester (Primary Dx); Essential hypertension affecting in third trimesterStart: 09-21-2025 End: 56-63-6233Xowytmghn encounterVerito EDOUARD Work Phone: [phone]-Vcwpb Medicine at [facility] Start: 09-19-2025 End: 58-55-2144Qrqfdiaky Result EncounterSteph Keane MANAGER MANAGING Work Phone: [facility] External Department UnsolicitedStart: 09-19-2025 End: 30-78-1973Jlkeufsjn Result EncounterClintmelissa Elsa MANAGER MANAGING Work Phone: [facility] External Department UnsolicitedStart: 09-17-2025 End: 27-39-9920Pxbrvq Breanna Arciniega APRN-CNM Work Phone: [phone]-Iyxfe Medicine at [facility] Comment on above:Essential hypertension affecting in third trimester Start: 09-16-2025 End: 99-63-3686ttqaehlrrdKPLSR FAZIONot AvailableStart: 09-16-2025 End: 91-54-2937Yqtsqpyt flow sheetCorey Kiesha DO Work Phone: [facility] [place] OBGYNComment on above:29 weeks gestation of ([facility]); Third trimester ([facility]); Hypertension affecting , antepartum ([facility]); Gestational diabetes mellitus (GDM), antepartum, gestational diabetes method of control unspecified([facility])Start: 09-16-2025 End: 67-40-4377Ictdei flowsheetCorey Kiesha DO Work Phone: [facility] [place] [facility]BGYNStart: 09-16-2025 End: 77-70-0747Xvgyww flowsheetCorey Kiesha DO Work Phone: [facility] [place] OBGYNStart: 09-16-2025 End: 72-21-7591Swmqafugq encounterCha Harris RNMaternal- Medicine at [facility] Campustart: 09-15-2025 End: 32-48-0764Ypmatt Tera Meza PA-C Work Phone: [phone]-Sgazh Medicine at [facility] Comment on above:Essential hypertension affecting in third trimester Start: 09-10-2025 End: 92-21-1548Yluutz outpatient visit 25 minutesMadhuri Monroy MD Work Phone: [facility] [place] on above: 28 weeks gestation of (Primary Dx); Insulin controlled gestational diabetes mellitus (GDM) in second trimester; Essential hypertension affecting in third trimesterStart: 09-10-2025 End: 58-12-6548vssxjocxmgFAKXLWPG P [facility]Ohio[facility] Start: 09-04-2025 End: 84-18-6635Kacudj consultation new/estab patient 60 Annalee Denise MD Work Phone: [phone]-[facility] at [facility] Comment on above:Diet controlled gestational diabetes mellitus (GDM) in second trimester (Primary Dx); Essential hypertension affecting in third trimesterStart: 09-04-2025 End: 59-10-4456dgieozufikHMMWGT KHURSLutheran Hospitaltart: 09-03-2025 End: 62-50-1496Pemnnuqk flow Rom Keane NP Work Phone: [facility] OBGYNComment on above:Hypertension affecting , antepartum (HHS-HCC) (Primary Dx); 27 weeks gestation of (HHS-HCC); Second trimester (HHS-HCC)Start: 09-03-2025 End: 54-59-5773gslmtysrdjEJHEEKVI EBERLYNot AvailableStart: 09-03-2025 End: 89-14-8624Eupshg Bárbara Keane NP Work Phone: [facility] [place] [facility]BGYNStart: 09-03-2025 End: 19-41-5189Sxcytcohg Result EncounterCorey Kiesha DO Work Phone: [facility] External Department UnsolicitedStart: 09-03-2025 End: 57-32-5547Nbzafgdhi Result EncounterCorepearl Pop DO Work Phone: [facility] External Department UnsolicitedStart: 09-01-2025 End: 73-19-7427Kmwcdnfgr encounterCha Harris RNMaternal- Medicine at [facility] Campustart: 08-29-2025 End: 86-02-6885Abzrtdmbg Result EncounterSteph Keane MANAGER MANAGING Work Phone: [facility] External Department UnsolicitedStart: 08-29-2025 End: 92-94-4179Ntwjllkvj Result EncounterSteph Keane MANAGER MANAGING Work Phone: [facility] External Department UnsolicitedStart: 08-27-2025 End: 95-21-3858hqdipnemrfCQEDBSSY EBERLYNot AvailableStart: 08-27-2025 End: 06-25-9249Lowhijiy flow sheetSteph Keane MANAGER MANAGING Work Phone: [facility] [place] OBGYNComment on above:26 weeks gestation of ([facility] Second trimester ([facility] OF [facility]); induced hypertension, antepartum ([facility]); Gestational diabetes mellitus (GDM) in second trimester, gestational diabetes method of control unspecified ([facility])Start: 08-27-2025 End: 48-20-8415Iwlhby flowsheetSteph Suely MANAGER MANAGING Work Phone: NOMS Patti OBGYNStart: 08-27-2025 End: 61-92-6179Eztzpt flowsheetSteph Suely MANAGER MANAGING Work Phone: [facility] Patti OBGYNStart: 08-27-2025 End: 88-61-3855Ukbmseciq Result EncounterSteph Keane MANAGER MANAGING Work Phone: noms External Department UnsolicitedStart: 08-25-2025 End: 71-18-2354Tmubyjwhb Result EncounterGeneric External Data ProviderNOMS External Department UnsolicitedStart: 08-25-2025 End: 12-66-7370Alvhodvqp Result EncounterGeneric External Data ProviderNOMS External Department UnsolicitedStart: 08-24-2025 End: 77-41-6942bnrcjmovqtLpufvf M Frey RN Work Phone: [phone]-Kndbr Medicine at [facility] Comment on above:Gestational diabetes mellitus (GDM) in second trimester, gestational diabetes method of control unspecifiedStart: 08-21-2025 End: 51-46-2818Vmotz abstractingScanning Provider ExternalMaternal- Medicine at [facility] Campustart: 08-18-2025 End: 81-60-0697Efgdd abstractingMadhuri Monroy MD Work Phone: [phone]-Jhion Medicine at [facility] Start: 08-15-2025 End: 70-27-0036jhroucatlnSTVDNKWH EBERLYFacility:FTMCStart: 08-12-2025 End: 03-77-0832Hyxxfvzj flow sheetCorey Kiesha DO Work Phone: NORA Patti OBGYNComment on above:24 weeks gestation of ([facility]); Second trimester ([facility]); Elevated glucose tolerance testStart: 08-12-2025 End: 06-48-1421wckeybsowcVPCUO FAZIONot AvailableStart: 08-12-2025 End: 94-29-1604yempbfxigfYkhzx R FAZIOFacility:FTMCStart: 08-01-2025 End: 93-60-2074qzgjawvxfvXWhit BELTRANFacility:FTMCStart: 07-30-2025 End: 74-46-2130Aovcguy encounter statusGeorjose manuel Beltran DO Work Phone: [facility] Work Phone: Start: 07-30-2025 End: 93-21-2242Gowcrfjh preventive med est patient 18-39 yrsGemartha Beltran DO Work Phone: NOJE [facility] 230Comment on above: Wellness examination (Primary Dx); Hypertension, unspecified type ; Lipid screeningStart: 07-30-2025 End: 78-38-9478qfuhaffkzmRVBWBI R KAFTANNot AvailableStart: 07-30-2025 End: 48-75-8189Vdixkq flowsheetGeorge R Kaftan DO Work Phone: NOHU [facility] 230Start: 07-30-2025 End: 15-75-2330Ggchsg flowsheetGeorge R Kaftan DO Work Phone: NOYG [facility] 230Start: 07-15-2025 End: 82-84-7032Opkmylhb flow sheetCorey Kiesha DO Work Phone: NOUQ [place] OBGYNComment on above:20 weeks gestation of ([facility]); Second trimester ([facility]); Diabetes mellitus screeningStart: 07-15-2025 End: 28-16-2990rbfbohhinvHJCFJ FAZIONot AvailableStart: 07-15-2025 End: 22-15-7103Tskrliaby Result EncounterCorey Kiesha DO Work Phone: NOQU External Department UnsolicitedStart: 07-15-2025 End: 62-33-5440Wfhjphlof Result EncounterCorey Kiesha DO Work Phone: noms External Department UnsolicitedStart: 06-22-2025 End: 49-13-8337Vlcphoxl flow sheetCorey Kiesha DO Work Phone: NOBM [place] OBGYNComment on above:Sinusitis, unspecified chronicity, unspecified location (Primary Dx); Second trimester ([facility]); 17 weeks gestation of ([facility]); Screening, , for anatomic survey ([facility])Start: 06-22-2025 End: 53-91-1912tindqyvjkhOWHXR FAZIONot AvailableStart: 06-22-2025 End: 57-38-1882Zohura flowsheetCorey Kiesha DO Work Phone: NOMS [place] OBGYNStart: 06-22-2025 End: 13-01-9639Nwaarg flowsheetCorey Kiesha DO Work Phone: noms [place] OBGYNStart: 06-22-2025 End: 80-25-4481Nalizxlu Result EncounterCorey Kiesha DO Work Phone: noms External Department UnsolicitedStart: 05-25-2025 End: 17-53-0177xsahxdpuxoZNGKP FAZIONot AvailableStart: 05-25-2025 End: 78-10-2951Djwpaspy flow sheetCorey Kiesha DO Work Phone: NOVC BCP OBComment on above:Nonintractable episodic headache, unspecified headache type (Primary Dx); Second trimester ([facility]); 13 weeks gestation of ([facility])Start: 05-25-2025 End: 69-10-9929Bgbyup flowsheetCorey Kiesha DO Work Phone: noms BCP OBStart: 05-25-2025 End: 58-30-2436Welzle flowsheetCorey Kiesha DO Work Phone: noms BCP OBStart: 05-04-2025 End: 65-93-9541Fkjytgsxh Result EncounterCorey Kiesha DO Work Phone: noms External Department UnsolicitedStart: 05-04-2025 End: 91-02-7795Xuxccobcd Result EncounterCorey Kiesha DO Work Phone: noms External Department UnsolicitedStart: 05-01-2025 End: 51-19-6584Ywswqbbqy Result EncounterCorey Kiesha DO Work Phone: noms External Department UnsolicitedStart: 05-01-2025 End: 96-80-2824Jbsboycwa Result EncounterCorey Kiesha DO Work Phone: noms External Department UnsolicitedStart: 05-01-2025 End: 00-70-8209zurjqlvqvlPYYAXA KAFTANNot AvailableStart: 05-01-2025 End: 33-76-6301Rfimsl outpatient visit 5 minutesNoms Bcp Ob Kiesha NurseNOMS BCP OBComment on above:GA: 1t1gYyafs: 03-13-2025 End: 22-90-3244dpugdkkftvGbmgi R FAZIOFacility:FTMCStart: 03-13-2025 End: 43-47-2841Wyyvynx encounter procedureCorey R KIESHA [facility] Start: 02-02-2025 End: 63-78-2118Lqmwmgt encounter procedureDenny Rodríguez MD Work Phone: [facility] [place] Work Phone: Start: 02-02-2025 End: 78-66-7643ehkrlmdjmkNaxcj Baxter MD Work Phone: [facility] Work Phone: Start: 01-22-2025 End: 30-49-3219bxdekxawcmNjyhm R FAZIOFacility:FTMCStart: 01-22-2025 End: 46-35-9188Surshoz encounter procedureCorey R KIESHA [facility] Start: 01-19-2025 End: 83-53-6496Mlsclk outpatient visit 15 minutesCorey Kiesha DO Work Phone: NORU BCP OBComment on above:Pain in female genitalia on intercourse; EndometriosisStart: 01-19-2025 End: 92-83-3330pfxtpdebbgPOMOF FAZIONot AvailableStart: 01-19-2025 End: 04-92-3594Szpzvc flowsheetCorey Kiesha DO Work Phone: NOMS BCP OBStart: 01-19-2025 End: 85-00-4551Eqziqa flowsheetCorey Kiesha DO Work Phone: NOMS BCP OBStart: 12-30-2024 End: 39-29-2540bvmqgzdsctECGXGU R KAFTANNot AvailableStart: 12-30-2024 End: 10-45-8258Whtlyl outpatient visit 15 minutesGeorge Bryant Beltran DO Work Phone: noms [facility] 230Comment on above:Hypertension, unspecified type (CMS/HCC) (Primary Dx); Paroxysmal tachycardia, unspecified (CMS/HCC); Chronic right shoulder pain; Scapular dyskinesisStart: 08-18-2024 End: 41-22-4232Yanvqs flowsheetCorey Kiesha DO Work Phone: noms BCP OBStart: 08-18-2024 End: 88-71-6870Txblen flowsheetCorey Kiesha DO Work Phone: NOJS BCP OBStart: 08-18-2024 End: 04-67-9019Jgotdjjhd Result EncounterCorey Kiesha DO Work Phone: noms External Department UnsolicitedStart: 08-18-2024 End: 95-16-4807Tdnlsbj encounter procedureCorey Kiesha DO Work Phone: [facility] Work Phone: Start: 08-18-2024 End: 73-87-2071Kvwrequq preventive med est patient 18-39 yrsCorey Kiesha DO Work Phone: noms BCP OBComment on above:Well woman exam with routine gynecological examStart: 07-22-2024 End: 25-99-3783Lodfyd flowsheetCorey Kiesha DO Work Phone: NOMS BCP OBStart: 07-22-2024 End: 42-99-7472Nglawo flowsheetCorey Kiesha DO Work Phone: noms BCP OBStart: 07-22-2024 End: 28-92-2612Qffwex outpatient visit 15 minutesCorey Kiesha DO Work Phone: noms BCP OBComment on above:Dysmenorrhea, unspecified Start: 64-26-3915Kppspfnhw encounterMegan Billow DO Work Phone: [facility] Centertart: 93-16-9956Vxhopskva encounterMegan Billow DO Work Phone: [facility] HospitalComment on above:Surgery CancelledStart: 02-13-2024 End: 48-23-7024Vgjdamzdg Result EncounterCorey Kiesha DO Work Phone: noms External Department UnsolicitedStart: 02-13-2024 End: 07-88-5024Dxklgjdwd Result EncounterCorey Kiesha DO Work Phone: noms External Department UnsolicitedStart: 01-15-2024 End: 23-01-1872Nyuzvxbtp Result EncounterCorey Kiesha DO Work Phone: noms External Department UnsolicitedStart: 01-15-2024 End: 08-88-2065Tbbfaztcx Result EncounterCorey Kiesha DO Work Phone: noms External Department UnsolicitedStart: 01-10-2024 End: 67-92-0572Gbbgjr outpatient visit 15 minutesCorey Kiesha DO Work Phone: NOAF BCP OBComment on above:Menorrhagia with regular cycle; Pelvic pain in female; Uses controlStart: 08-69-6382SmmufkEnbka Billow DO Work Phone: [facility] HospitalComment on above:Refill Request Start: 25-72-3558ebriloubaxUptpa Billow DO Work Phone: Obstetrics/GynecologyComment on above:painStart: 12-10-2023 End: 58-85-8026djbqxnbsgnJRMNI BILLOWFacility:Kindred Healthcaretart: 73-38-2954tlkkdbfmlcTbido Billow DO Work Phone: [facility]PITALtart: 62-41-3874Ueddpgg encounter procedureMegan Billow DO Work Phone: Obstetrics/GynecologyComment on above:office visit Start: 09-12-2023 End: 78-26-8244Ehupajsuu department patient Berny Loco [facility] Start: 80-56-6393Dooqiv pelvic examinationMegan Billow DO Work Phone: Obstetrics/GynecologyComment on above:Pelvic pain in female (Primary Dx)Start: 74-70-0720ayujmqhsitFyral Billow DO Work Phone: Obstetrics/GynecologyComment on above:painful periods Start: 08-24-2023 End: 67-06-7521Kuvoyk pelvic examinationErin Himanshu ORDONEZ Work Phone: GynecologyComment on above:High-tone pelvic floor dysfunction (Primary Dx); Chronic pelvic pain in femaleStart: 08-24-2023 End: 87-81-0642Hjaquvqgayue consultation with Kelton Downs APRN.CNP Work Phone: cCF [facility] MAINStart: 08-24-2023 End: 91-32-4115ifhronhhlyHGVJ REAPERFacility:Kindred Healthcaretart: 00-54-4848evexgthuonAnxrd Billow DO Work Phone: Obstetrics/GynecologyComment on above:painful period Start: 50-93-7706Uqxjgnqlj encounterMegan Billow DO Work Phone: GynecologyComment on above:Insurance Authorization (Orilissa)Start: 07-16-2023 End: 56-90-0642epmbchduuyITDMI BILLOWFacility:[facility] HospitalStart: 06-12-2023 End: 91-73-9322oxvomdxizlUAXEM BILLOWFacility:[facility]red Healthcaretart: 06-12-2023 End: 33-09-7471Iachtcmpfe hospital visit by physicianandra [facility] Suki (I-Stat/1.5t) RadiologyComment on above:Pelvic and perineal pain [R10.2]Start: 05-17-2023 End: 70-03-2742Zinbzb pelvic examinationMegan Billow DO Work Phone: Obstetrics/GynecologyComment on above:Endometriosis (Primary Dx); Pelvic and perineal painStart: 05-17-2023 End: 69-01-4603Decvmphqccxo consultation with Jenny Rodriguez DO Work Phone: CCDre [facility]PITALtart: 05-17-2023 End: 82-45-2193nuuulruxugQCTGY SAHIL AARTIHipolitocility:[facility] Start: 19-90-9788Lrqmnzcxe encounterCharlene Rodriguez DO Work Phone: GynecologyComment on above:Vaginal BleedingStart: 05-01-2023 End: 00-85-7442ydpbaazbbvJEMDL ALAN BAXTERFacility:[facility] Start: 05-01-2023 End: 23-58-8083Grwdmam encounter Lisa Downs APRN.CNP Work Phone: GynecologyComment on above:Chronic pelvic pain in female (Primary Dx); Constipation, unspecified constipation type; High-tone pelvic floor dysfunction; Diastasis of rectus abdominis; Dysmenorrhea; Other specified dyspareuniaStart: 10-02-9117unrtslihdhFckom Billow DO Work Phone: Obstetrics/GynecologyComment on above:painfulStart: 01-31-2023 End: 69-76-6516Obwhohfhx department [facility] Start: 12-30-2022 End: 08-34-6642Nbgojmx encounter procedureWhite Hospital Start: 12-05-2022 End: 86-78-3956qclynvqehbEYKONorth [facility] SHSStart: 12-05-2022 End: 83-06-0311Btscxu outpatient visit 15 minutesGina Silva DO Work Phone: [facility] Psych[facility] CenterComment on above:Pre- eclampsia, severe, delivered (Primary Dx)Start: 11-28-2022 End: 27-53-3020Ywvjxcpcmx and management of [facility] SHSStart: 11-28-2022 End: 78-54-0858Httyqduqpw and management of inpatientKathe Ryder DO Work Phone: [facility] H4 POSTPARTUMComment on above:Preeclampsia, severe, third trimester (Primary Dx)Start: 11-28-2022 End: 05-42-9235Njo-admission assessmentGregrosa DORSEY [facility] Start: 11-27-2022 End: 13-56-5033EU TriageFredi DORSEY [facility] Start: 07-14-2022 End: 19-51-6561Hqmwjhdyk department patient visitCharlotteylchidi Villagomez [facility] Start: 07-14-2022 End: 96-48-9404PN TriageCorepearl POP [facility] Start: 04-25-2022 End: 32-93-2459Vldifzq encounter procedureCAMERON DICADEY [facility] Start: 04-18-2022 End: 00-02-4850pjjzryjxfzAgiptsa Ditty Other [facility] Other Start: 05-93-5618Dwjophs encounter procedureCameron DittyFPG GastroenterologyStart: 25-79-3376Mosdxm outpatient visit 15 minutes Charlene Rodriguez DO Work Phone: [phone]-YHJCY-[address] Work Phone: Start: 09-29-2021 End: 57-84-8979lutcfjykwfOIMDX [facility]OCW[facility] HOSPITALjames [facility] Centertart: 09-29-2021 End: 26-60-8010czrogrwlcbCOXPN ROWENA POCOSMercpearl Burch HospitalStart: 48-97-6776WTTECWnamr Billow DO Work Phone: [phone]-GFYWK-[address] Work Phone: Start: 45-45-7550NEOHWXLKZK, Provider: Charlene Rodriguez, Status: Pen, Time: 2:45 Ina Chau MD Work Phone: [phone]-Hwuaegl-[place] Work Phone: Start: 56-62-5364Rbmvd Oswaldo Chau MD Work Phone: [phone]-Aojlhzv-[place] Work Phone: Procedures DateProcedureProcedure DetailPerforming ClinicianStart: 98-18-0185GQ OB BPP W NON-STRESSKrmelissa Keane MANAGER MANAGING Work Phone: Start: 97-98-3932Ynvbj dip stick/tablet rgnt non-auto w/o micrscpCorey Kiesha DO Work Phone: Start: 30-08-7212MZZ BUNCorey Kiesha DO Work Phone: Start: 37-55-5487CNB URIC ACIDCorey Kiesha DO Work Phone: Start: 04-00-1022XEH ALTCorey Kiesha DO Work Phone: Start: 09-20-8301BTU ASTCorey Kiesha DO Work Phone: Start: 83-49-6942MGN CREATININECorey Kiesha DO Work Phone: Start: 19-58-4476CBQ URINE T PROTEIN CREAT RATIOCorey Kiesha DO Work Phone: Start: 56-96-4032Esylg dip stick/tablet rgnt non-auto w/o micrscpSteph eKane MANAGER MANAGING Work Phone: Start: 91-89-3229KJE TOTAL PROTEIN 24 HOUR URINE Generic External Data ProviderStart: 06-56-9562CQ OB BPP W NON-STRESS Steph Keane NP Work Phone: Start: 86-36-8999XCW URINE T PROTEIN CREAT RATIO Generic External Data ProviderStart: 51-42-8152ABU CBC WITH AUTO DIFFGeneric External Data ProviderStart: 23-63-1834Ypijh dip stick/tablet rgnt non-auto w/o micrscpSteph Keane NP Work Phone: Start: 30-88-3728Yetvojms identified in Urine by CultureGeneric External Data ProviderStart: 94-87-1317Ocyztoa quantitative blood xcpt reagent stripNot In System Ref ProvStart: 47-25-8155AEDUOM HOUR GLUCOSE TOLERANCE 100 GM LOADNot In System Ref ProvStart: 49-91-6290Cgynu dip stick/tablet rgnt non-auto w/o micrscpCorey Kiehsa DO Work Phone: Start: 03-90-4345UTQ 1H POST 50G LOADNot In System Ref ProvStart: 44-19-2874TGY, SERUM, OPEN SPINA BIFIDACorey Kiesha DO Work Phone: Start: 84-49-6021Yvxyj dip stick/tablet rgnt non-auto w/o micrscpCorey Kiesha DO Work Phone: Start: 73-85-5226HBQYGMSZA VAGINITIS (HTRX)Nathan Kiesha DO Work Phone: Start: 63-24-5037Xdilz dip stick/tablet rgnt non-auto w/o micrscpCorey Kiesha DO Work Phone: Start: 69-54-5730Ynzzi dip stick/tablet rgnt non-auto w/o micrscpCorey Kiesha DO Work Phone: Start: 88-82-0604Nohvrniwcarlitos Monroy MD Work Phone: Start: 81-20-8687Ktap scrn 1+ class nonchromoNot In System Ref ProvStart: 66-26-6132Fgyoymhjnb glycosylated k2oKxpsc R Kiesha DO Work Phone: Start: 73-20-7910Rrgplctfe c antibodyNot In System Ref ProvStart: 89-05-9192JNT 1&2 AB/AG SCREEN (P24 AG)Not In System Ref ProvStart: 13-77-9757Elzq ia hepatitis b surface antigenNot In System Ref ProvStart: 88-36-5055GNQB AND SCREENNot In System Ref ProvStart: 05-48-3966FQI TESTCorey Kiesha DO Work Phone: Start: 23-46-0958Sapml dip stick/tablet rgnt non-auto w/o micrscpCorey Kiesha DO Work Phone: Start: 71-14-1899QZ OB TRANSVAGINALCorey Kiesha DO Work Phone: Start: 35-54-9215CBM,APTIMA HPV,AGE GDLNCorey Kiesha DO Work Phone: Start: 15-99-1928Dilltyzinyw observation [Identifier] in Cervix by Cyto stainCorey Kiesha DO Work Phone: Start: 39-62-0142BGG 12-LEADCorey Kiesha DO Work Phone: Start: 01-17-4079FB PELVIS W/ TRANSVAGINALCorey Kiesha DO Work Phone: Start: 25-83-3249Myxm cerv/vag auto thin layer prep mnl screenCorey Kiesha DO Work Phone: Start: 08-99-5046Juk pelvis w/o & w/contrast material Charlene Billow DO Work Phone: Start: 12-67-9506Kieol count platelet automatedMichael O'Cormier [employer] SERVICE STEWARD - DOCK CLERK Work Phone: Start: 42-16-9413Herxs count platelet automatedRenae M Dougie MD Work Phone: Start: 42-62-5873Hhtiy streptococcus group b amplified probe tqCassie Constantino MD Work Phone: Start: 25-12-9137FRR and Rh group [Type] in Blood by Confirmatory methodCassie Constantino MD Work Phone: Start: 20-42-9484Tozvq typing serologic aboRevonne Constantino MD Work Phone: Start: 89-99-9487Aqpiavwocoxfx metabolic panelCassie Constantino MD Work Phone: Start: 67-28-7563Zidnsqvx hiv-1&hiv-2 single result Megadyne [phone]: 78-52-7938Jxcn ia hepatitis b surface antigenMegadyne [phone]: 61-49-7266YhqwvlxlijOJNULJS DITTY Start: 08-30-2020 End: 41-74-5948Kqpunbvg screenComment on above:Performed By: #### T+S #### [facility] [address] [place], [place] [address]Shqin Comment: TEST TYPE + SCREEN WAS CANCELLED, 08/30/2020 13:37 JOP.Performed By: #### T+S #### [facility] [address] [place], [place] [address]Slbjp: 05-43-3566MYKZA SHOULDER OPEN DISTAL CLAVICLE EXCISION 1CAMERON DITTY Comment on above:RIGHT SHOULDER OPEN DISTAL CLAVICLE EXCISIONRIGHT SHOULDER OPEN DISTAL CLAVICLE EXCISIONAppendectomyCAMERON DITTY betamethasone (substance)Fredi DORSEY comment on above:Dose #1: 11/27/22ColonoscopyCAMERON DITTY Endoscope, device (physical object)[place] LaparoscopyTeri Chau MD Work Phone: Plan of Treatment DateCare ActivityDetailAuthorStart: 32-65-8810Htqdls Vaccines (1 of 2)Zoster Vaccines (1 of 2)[facility] HealthStart: 63-96-4925Sipxigjdq for malignant neoplasm of cervixNOMS HealthcareStart: 90-59-9465Fjdzsogit for malignant neoplasm of cervixPap SmearNOMS HealthcareStart: 10-66-0032Nylqm BMI ScreeningAdult BMI ScreeningBrecksville VA / Crille Hospital SystemStart: 81-53-2422Uqfqpah ScreeningTobacco ScreeningProTrihealth Bet[facility] Hospital SystemStart: 44-77-0780Opeyc BMI ScreeningAdult BMI ScreeningBrecksville VA / Crille Hospital SystemStart: 38-35-5579Qywbw BMI ScreeningAdult BMI ScreeningCarolinaEast Medical Centertart: 10-08-2025 End: 34-74-6732Ixlpueb encounter grqaboqar68/13/2025 8:00 AM EST Appointment [facility] [place] [address] [address] [facility] [place]Start: 10-05-2025 End: 03-85-4422Nwluguy encounter csmrachbq83/10/2025 3:00 PM EST Office Visit Maternal- Medicine at [facility] [address] [place] [phone] Kayleigh Meza, PA-C [address] [address] [facility]: 10-05-2025 End: 05-42-6380Rtdutaeuvwji consultation with rjkqrjl1610/05/2025 3:00 PM EST Telemedicine Maternal- Medicine at [facility] [address] [place] [phone] Kayleigh Meza, PA-C [address] [address] [facility]: 09-30-2025 End: 41-12-8525Nrtisqz encounter vmdnbvrso21/05/2025 3:00 PM EST Routine NOMShalonda MOODY [address] [place], [id number] Nathan Pop DO [address] [place] [place] [address] NOMShalonda Patit OBGYNStart: 09-16-2025 End: 90-05-6388YF biophysical profile w non stress testUS biophysical profile w non stress test Imaging Routine Gestational diabetes mellitus (GDM),antepartum, gestational diabetes method of control unspecified ([facility]) Expected: 09/16/2025, Expires: 09/16/2026NOMS HealthcareComment on above:Expected: 09/16/2025, Expires: 09/16/2026Start: 09-15-2025 End: 95-99-8257Fhwnvif encounter wlpzyzsrc10/21/2025 2:50 PM EDT Routine NOMShalonda MOODY [address] [place], [id number] Zenobia Gutierrez PA [address] [place] [address] LANETTE [place] OBGYNStart: 09-10-2025 End: 74-87-3844Hwcynwfzstai consultation with dpgnyen8509/10/2025 11:00 AM EDT Telemedicine [facility] [place] [address] [place] [address] Madhuri Monroy MD [address], [address] [place] [address] [facility] Medicine [place]Start: 09-10-2025 End: 31-49-7092Vuyzavq encounter ihhsnbbvc48/16/2025 9:45 AM EDT Appointment [facility] [place] [address] [place] [address] Cfpsaowk Medicine [place]Start: 09-07-2025 End: 36-84-0552Zxcbcni encounter procedureNO BCP OBStart: 09-04-2025 End: 34-93-5782Isrpytu encounter fbevdpqpt26/10/2025 3:00 PM EDT Office Visit Maternal- Medicine at [facility] [address] [place] [phone] Mine Denise MD [address] [place] [address] [facility]: 09-03-2025 End: 72-51-8370Ffoehuk encounter procedureNO Patti OBGYNComment on above: ArrivedStart: 08-27-2025 End: 50-98-2913Maljluz encounter ggruaqery95/02/2025 3:20 PM EDT Routine [facility] [address] [place], [id number] Steph Keane NP [address] [place] [address] NOMS Patti OBGYNStart: 08-27-2025 End: 04-86-6703Ammezwo aminotransferase [Enzymatic activity/volume] in Serum or PlasmaALT Lab Routine induced hypertension, antepartum ([facility]-HCC) Expected: 08/27/2025 (Approximate), Expires: 08/27/2026NOND HealthcareComment on above:Expected: 08/27/2025 (Approximate), Expires: 08/27/2026Start: 08-27-2025 End: 81-24-3173Hjbazzrzb aminotransferase [Enzymatic activity/volume] in Serum or PlasmaAST Lab Routine induced hypertension, antepartum ([facility]-HCC) Expected: 08/27/2025 (Approximate), Expires: 08/27/2026NOMS HealthcareComment on above:Expected: 08/27/2025 (Approximate), Expires: 08/27/2026Start: 08-27-2025 End: 30-74-3004UCC W Auto Differential panel - BloodCBC and differential Lab Routine induced hypertension, antepartum ([facility]-HCC) Expected: 12/2024 (Approximate), Expires: 08/27/2026[facility] HealthcareComment on above: Expected: 08/27/2025 (Approximate), Expires: 08/27/2026Start: 08-27-2025 End: 08-01-1771Gjnsawplcx [Mass/volume] in Serum or PlasmaCreatinine Lab Routine induced hypertension, antepartum ([facility]HS-HCC) Expected: 08/27/2025 (Ap proximate), Expires: 08/27/2026[facility] Healthcare Work Phone: comment on above:Expected: 08/27/2025 (Approximate), Expires: 08/27/2026Start: 08-27-2025 End: 01-92-9523Yxdcoyh dehydrogenase [Enzymatic activity/volume] in Serum or Plasma by Lactate to pyruvate reactionLactate dehydrogenase Lab Routine induced hypertension, antepartum ([facility]HS-HCC) Expected: 08/27/2025, Expires: 08/27/2026[facility] HealthcareComment on above:Expected: 08/27/2025, Expires: 08/27/2026Start: 08-27-2025 End: 05-27-9014Yhhvfud, urine, 24 hourProtein, urine, 24 hour Lab Routine induced hypertension, antepartum ([facility]HS-HCC) Expected: 08/27/2025 (Approximate), Expires: 08/27/2026[facility] HealthcareComment on above:Expected: 08/27/2025 (Approximate), Expires: 08/27/2026Start: 08-27-2025 End: 10-58-4017Ev and pttPt and ptt Lab Routine induced hypertension, antepartum ([facility]HS-HCC) Expected: 08/27/2025, Expires: 08/27/2026[facility] Healthcare Comment on above:Expected: 08/27/2025, Expires: 08/27/2026Start: 08-27-2025 End: 99-70-2334Vakco [Mass/volume] in Serum or PlasmaUric acid Lab Routine induced hypertension, antepartum ([facility]) Expected: 08/27/2025 (Bouchra roximate), Expires: 08/27/2026[facility] HealthcareComment on above:Expected: 08/27/2025 (Approximate), Expires: 08/27/2026Start: 08-27-2025 End: 26-39-0301Ntdy nitrogen [Mass/volume] in Serum or PlasmaBUN Lab Routine induced hypertension, antepartum (HHS-HCC) Expected: 08/27/2025, Expires:08/27/2026NOND HealthcareComment on above:Expected: 08/27/2025, Expires: 08/27/2026Start: 08-27-2025 End: 15-02-5783WR biophysical profile w non stress testUS biophysical profile w non stress test Imaging Routine induced hypertension, antepartum ([facility]) Gestational diabetes mellitus (GDM) in second trimester, gestational diabetes method of control unspecified ([facility]) Expected: 08/27/2025 (Approximate), Expires: 02/25/2026[facility] HealthcareComment on above:Expected: 08/27/2025 (Approximate), Expires: 02/25/2026Start: 08-24-2025 End: 28-53-4856jywdacigmk43/29/2025 1:30 PM EDT Support Visit Maternal- Medicine at [facility] [address] [place] [phone] Teena Sarmiento RN 2 N [facility], [address] [place] [address] Kerline Augustin, RAYNA [address] ENRIQUE CALVIN, [address] [place] [address] [facility]: 08-24-2025 End: 45-25-4547Zrttpll encounter ixwqsrptz03/29/2025 11:00 AM EDT Office Visit [facility] BCP OB [address] [place] [phone] Nathan Pop, DO [address] [place] [address] NOMShalonda INIGUEZ OBStart: 08-12-2025 End: 80-02-0504Rnmgwnm encounter beuroxwwz83/17/2025 2:40 PM EDT Routine LANETTE MOODY [address] [place], [id number] Nathan Pop, DO [address] [facility] [place] [address] LANETTE [place] OBGYNStart: 08-12-2025 End: 25-19-7880Mpzscpmsaqz of glucose 3 hours after glucose challenge for glucose tolerance testGlucose tolerance, 3 hours Lab Routine Elevated glucose tolerance test Expected: 08/12/2025 (Approximate), Expires: 08/12/2026NOND [employer] Work Phone: comment on above:Expected: 08/12/2025 (Approximate), Expires: 08/12/2026Start: 08-12-2025 End: 27-19-5603Nupnmwenfdiw / ancillary services nuyzbhyucp40/17/2025 2:00 PM EDT Ancillary Procedure LANETTE MOODY [address] [place] [address] [place] [address] [phone] Patti OBGYNStart: 07-31-2025 End: 76-78-5744AJQ W Auto Differential panel - BloodCBC and differential Lab Routine Hypertension, unspecified type Wellness examination Expected: 07/31/2025 (Approximate), Expires: 08/29/2025[facility] [employer] Work Phone: Comment on above:Expected: 07/31/2025 (Approximate), Expires: 08/29/2025Start: 07-31-2025 End: 84-38-7758Vdmfvrznjxqnu metabolic 2000 panel - Serum or PlasmaComprehensive metabolic panel Lab Routine Hypertension, unspecified type Wellness examination Expected: 07/31/2025 (Approximate), Expires: 08/29/2025NOND HealthcareComment on above:Expected: 07/31/2025 (Approximate), Expires: 08/29/2025Start: 07-31-2025 End: 54-82-6607Zdhyq 1996 panel - Serum or PlasmaLipid panel Lab Routine Wellness examination Lipid screening Expected: 07/31/2025 (Approximate), Exp ires: 08/29/2025NOND HealthcareComment on above:Expected: 07/31/2025 (Approximate), Expires: 08/29/2025Start: 07-30-2025 End: 92-76-3871Xvbjmyh encounter qrdvsayac73/04/2025 3:40 PM EDT Office Visit [facility] [address] [address] Eliceo Beltran DO [address] [facility] [address] [place] [address] ArrivedNOCape Fear/[facility] 230Comment on above:ArrivedStart: 42-62-2618EQUUI-19 Vaccine ( season)COVID-19 Vaccine ( season)NOMS HealthcareStart: 07-27-2025 Influenza vaccinationNOND HealthcareStart: 07-15-2025 End: 62-51-9773Nakychq encounter dntzjttje34/20/2025 3:30 PM EDT Routine NOMShalonda MOODY [address] [place], [id number] Nathan Pop DO [address] [place], [place] [id number] LANETTE YOUNGNStart: 07-15-2025 End: 29-09-5062Veiteptqouzn / ancillary services bpqcafberz95/20/2025 2:30 PM EDT Ancillary Procedure NOMShalonda MOODY [address] [facility] [place] [place] [address] NOMS Patti YOUNGNStart: 07-15-2025 End: 64-09-7415LCE panel - Blood by Automated countCBC Lab Routine Diabetes mellitus screening Expected: 07/15/2025 (Approximate), Expires: 07/15/2026[facility] Work Phone: comment on above:Expected: 07/15/2025 (Approximate), Expires: 07/15/2026Start: 07-15-2025 End: 56-75-1226Aqcdcorjgjg of glucose 1 hour after glucose challenge for glucose tolerance testGlucose tolerance, 1 hour Lab Routine Diabetes mellitus screening Expected: 07/15/2025 (Approximate), Expires: 07/15/2026[facility] HospitalComment on above:Expected: 07/15/2025 (Approximate), Expires: 07/15/2026Start: 06-22-2025 End: 18-19-5171Yebxyfs encounter seoiuldxe61/28/2025 2:10 PM EDT Routine NOMS Patti OBGYN [address] [place], [id number] Nathan Pop, [address] [facility] [place] [address] ArrivedLANETTE [place] OBGYNComment on above:ArrivedStart: 06-22-2025 End: 16-50-0522Kmlnj fetoprotein, maternalAlpha fetoprotein, maternal Lab Routine Second trimester ([facility]) 17 weeks gestation of ([facility]) Expected: 06/22/2025 (Approximate), Expires: 12/23/2025[facility] Comment on above:Expected: 06/22/2025 (Approximate), Expires: 12/23/2025Start: 06-22-2025 End: 78-98-7818UB for pregnancyUS OB 14+ weeks anatomy scan Imaging Routine Screening, , for anatomic survey ([facility]) Expected: 06/22/2025, Expires: 09/22/2025[facility] Work Phone: comment on above:Expected: 06/22/2025, Expires: 09/22/2025Start: 05-25-2025 End: 81-17-7211Apywjsj encounter jbqwcpqir92/30/2025 2:40 PM EDT Routine NOMS BCP OB [address] [place] [phone] Nathan Pop, DO [address] [facility] [place] [address] NOMS BCP OBStart: 05-01-2025 End: 19-26-6732RJN/RhABO/Rh Lab Routine Missed menses , unspecified gestational age Expected: 05/01/2025 (Approximate), Expires: 05/01/2026NOMS HealthcareComment on above:Expected: 05/01/2025 (Approximate), Expires: 05/01/2026Start: 05-01-2025 End: 46-46-6462Tzasm type and Indirect antibody screen panel - BloodType and screen Lab Routine Missed menses , unspecified gestational age Expected: 05/01/2025 (Approximate), Expires: 05/01/2026[facility] Work Phone: comment on above:Expected: 05/01/2025 (Approximate), Expires: 05/01/2026Start: 05-01-2025 End: 40-67-5367Sydfy of abuse panel - Urine by Screen methodRapid drug screen, urine Lab Routine , unspecified gestational age Encounter for supervision of normal first in first trimester Expected: 05/01/2025 (Approximate), Expires: 05/01/2026NOMS HealthcareComment on above:Expected: 05/01/2025 (Approximate), Expires: 05/01/2026Start: 01-19-2025 End: 82-99-3614Bxqbfgw encounter procedureNOMS BCP OBComment on above:Arrived Start: 01-19-2025 End: 10-62-2365WjtnyuwdwbkdWyqotnrikcyb Lab Routine Pain in female genitalia on intercourse Endometriosis Expected: 01/19/2025(Approximate), Expires: 01/19/2026 [facility] Work Phone: Comment on above:Expected: 01/19/2025 (Approximate), Expires: 01/19/2026Start: 08-18-2024 End: 72-24-1829Svgdzfn encounter procedureNOMS BCP OBComment on above:Arrived Start: 76-46-6463Wxjzoynse vaccinationRindge ClinicStart: 07-22-2024 End: 36-96-5897WZ for pregnancyUS PELVIS-TRANSVAG IF INDICATED Imaging Routine Dysmenorrhea, unspecified Expected: 07/22/2024 (Approximate), Expires: 07/22/2025[facility] Work Phone: Domment on above:Expected: 07/22/2024 (Approximate), Expires: 07/22/2025Start: 06-23-2024 End: 01-67-6858Otrngqs encounter /29/2024 10:30 AM EDT Office Visit Obstetrics/Gynecology [address] [address] Charlene Rodriguez DO [address] [place] [address] 2 WEEK POST OPObstetrics/GynecologyComment on above:2 WEEK POST OPStart: 05-27-2024 End: 71-26-2358Ttnijjofv to same day surgery dypogt2905/27/2024 7:30 AM EDT - 05/27/2024 9:30 AM EDT Surgery [facility] Surgery [address] [place] [address] Charlene Rodriguez DO [address] [place] [address] LAPAROSCOPY FULGURATION OR EXCISION OF LESIONS OF THE OVARY PELVIC VISCERA OR PERITONEAL SURFACE BY ANY METHODLakehealth Beach[facility] Medical Center SurgeryComment on above:LAPAROSCOPY FULGURATION OR EXCISION OF LESIONS OF THE OVARY PELVIC VISCERA OR PERITONEAL SURFACE BYANY METHODStart: 05-27-2024 End: 15-89-2279Fjwm fulg/exc ovary viscera/peritoneal surfaceLAPAROSCOPY FULGURATION OR EXCISION OF LESIONS OF THE OVARY PELVIC VISCERA OR PERITONEAL SURFACE BYANY METHOD Endometriosis 05/27/2024 7:30 AM EDTME ORStart: 05-27-2024 Subsequent hospital visit by avhqwkzax79/02/2024 7:30 AM EDT Hospital Encounter [facility] Surgery [address] [place] [address] Charlene Rodriguez, [address] [place] [address] [phone] (F ax) Endometriosis [N80.9][facility] SurgeryComment on above:Endometriosis [N80.9]Start: 57-89-7003Rrukrqcta vaccinationInfluenza Vaccine (#1)NOMS HealthcareComment on above:Postponed from 07/27/2023 (Patient Refused)Start: 05-20-2024 End: 84-50-9279mmicfcavmc51/25/2024 10:00 AM EDT [facility] [employer] SALES REPRESENTATIVE [employer]SF[employer]OB [address] [address] [place], [employer] Specialist Nurse [address] [address] RN [facility] MOBComment on above:RN TEACHINGStart: 04-22-2024 End: 44-49-2599Pweyihn encounter inypdgdsa97/28/2024 9:00 AM EDT Office Visit [facility] [address] [place] [address] Denny Rodríguez MD [address] [place] [address] NOMS SEP FMStart: 79-44-2075BMiP,Tdap and Td Vaccines (7 - Td or Tdap)DTaP,Tdap and Td Vaccines (7 - Td or Tdap)[facility] SystemStart: 13-95-7888VCfR/Tdap/Td Vaccines (7 - Td or Tdap)DTaP/Tdap/Td Vaccines (7 - Td or Tdap)[facility] IncStart: 41-81-8439Hrlze microalbumin profileDTaP,Tdap,Td Vaccine (7 - Td or Tdap)[facility]: 01-30-2024 End: 09-78-6756Fjqeokd encounter pmobthccw09/06/2024 11:10 AM EST Consult NOMS [facility] OB [address] [place] [address] Nathan Pop, DO [address] [facility] [address] [place], [place] [address] NOMS BCP OBStart: 01-15-2024 End: 16-97-7473Xuknpgcdqbdo / ancillary services daixgbisgi61/20/2024 8:00 AM EST Ancillary Procedure [facility] OB [address] [place] [address] NOMS BCP OBStart: 01-10-2024 End: 49-35-0935RO for pregnancyUS PELVIS-TRANSVAG IF INDICATED Imaging Routine Pelvic pain in female Expected: 01/10/2024 (Approximate), Expires: 01/10/2025 [facility] Work Phone: comment on above:Expected: 01/10/2024 (Approximate), Expires: 01/10/2025Start: 10-72-4649Vsmoulxhlo Health ScreeningBehavioral Health ScreeningSt. Mary's Medical Centertart: 32-70-3786Bolxjbkrtk AssessmentDepression AssessmentSt. Mary's Medical Centertart: 61-65-2196Fsswg-19 Vaccine ( season) Covid-19 Vaccine ( season)[facility]art: 26-37-9625Plgpbwaur vaccinationSt. Mary's Medical Centertart: 74-19-6419NTFLGVSZSG ASSESSMENTDEPRESSION ASSESSMENTSt. Mary's Medical Centertart: 92-20-9437Nmvwkddaz vaccinationInfluenza Vaccine (#1)[facility], IncStart: 34-82-5816GML, Provider: Charlene Rodriguez, Status: Pen, Time: 1:30 PMFUV, Provider: Charlene Rodriguez, Status: Pen, Time: 1:30 PM OL-VNJTI-Jnmqry [address] Work Phone: Start: 77-39-1962LZF, Provider: Charlene Rodriguez, Status: Pen, Time: 11:15 AMFUV, Provider: Charlene Rodriguez, Status: Eric, Time: 11:15 AM Shahana [address] Work Phone: Start: 49-53-5276QFK TESTINGPAP TESTINGSt. Mary's Medical Centertart: 77-88-9349Ftnytorjb for malignant neoplasm of cervixSt. Mary's Medical Centertart: 36-02-9456CAiP,Tdap and Td Vaccines (1 - Tdap)DTaP,Tdap and Td Vaccines (1 - Tdap)[facility]: 54-04-7502NFyR/Tdap/Td Vaccines (1 - Tdap)DTaP/Tdap/Td Vaccines (1 - Tdap)[facility] IncStart: 70-41-7779Jfyin microalbumin profileSt. Mary's Medical Centertart: 89-81-4219Uedrr BMI Follow Up Plan Adult BMI Follow Up PlanCarolinaEast Medical Centertart: 89-69-2668Smqhz BMI ScreeningAdult BMI ScreeningProKettering Health Miamisburgtart: 55-44-2297RECCSH PCP TEAM CHRONIC DISEASE VISITANNUAL PCP TEAM CHRONIC DISEASE VISITSal[facility] Start: 59-06-6272AU CONTROLLED (<130/80)BP CONTROLLED (<130/80)[facility] Start: 87-97-4262AOGNWAJLD C SCREENINGHEPATITIS C SCREENINGSalem City Hospital Start: 89-81-3876Wdsxxdnmn C screeningHepatitis C ScreeningSalem City Hospital Start: 45-65-7565EIT SCREENINGHIV SCREENINGSt. Mary's Medical Centertart: 48-15-6410YHH screeningHIV ScreeningSt. Mary's Medical Centertart: 27-93-8382Njqtkex of varicella vaccinationVaricella Vaccines (1 of 2 - 13+ 2-dose series)[facility]Start: 81-22-5604Wrtagnjtmm ScreeningDepression ScreeningCarolinaEast Medical Centertart: 10-40-4734Izvkrsr ScreeningTobacco ScreeningCarolinaEast Medical Centertart: 24-03-2824Qzadushwb vaccinationVaricella Vaccines (1 of 2 - 2-dose childhood series)[facility], IncStart: 67-54-6768IZM Vaccines (1 of 1 - Standard series)MMR Vaccines (1 of 1 - Standard series)[facility] IncStart: 72-38-7643Xrmkkxmcz vaccinationVaricella Vaccines (1 of 2 - 2-dose childhood series)[facility] Start: 10-65-5324AJYXD-19 VACCINE (#1)COVID-19 VACCINE (#1)[facility] Start: 17-83-3636APHIWWYLC B (1 of 3 - 3-dose series)HEPATITIS B (1 of 3 - 3- dose series)[facility]: 11-32-1655Cyneqwkri B Vaccine (1 of 3 - 3- dose series)Hepatitis B Vaccine (1 of 3 - 3-dose series)[facility]art: 82-99-7882Cqvkgmzun B Vaccines (1 of 3 - 3-dose series)Hepatitis B Vaccines (1 of 3 - 3-dose series)[facility] IncStart: 82-57-3755Qxdoa panelLipid PanelSumwv HealthBacteria identified in Urine by CultureUrine culture Microbiology Routine Missed menses Ordered: 05/01/2025[facility] HealthcareComment on above:Ordered: 05/01/2025BC W Auto Differential panel - BloodCBC and differential Lab Routine Missed menses , unspecified gestational age Ordered: 05/01/2025[facility] HealthcareComment on above:Ordered: ytology Cervical or vaginal smear or scraping studyPap Smear Pathology and Cytology Routine Well woman exam with routine gynecological exam Ordered: 08/18/2024[facility] [employer] Work Phone: comment on above:Ordered: 08/18/2024Hemoglobin A1c/Hemoglobin.total in BloodHemoglobin A1c Lab Routine Missed menses , unspecified gestational age Ordered: 05/01/2025[facility] HealthcareComment on above: Ordered: 05/01/2025Hepatitis B virus surface Ag [Presence] in Serum or Plasma by ImmunoassayHepatitis B surface antigen Lab Routine Missed menses , unspecified gestational age Ordered: 05/01/2025[facility] HealthcareComment on above: Ordered: 05/01/2025Hepatitis C virus Ab [Presence] in Serum or Plasma by ImmunoassayHepatitis C antibody Lab Routine Missed menses , unspecified gestational age Ordered: 05/01/2025[facility] HealthcareComment on above:Ordered: 05/01/2025HIV-1/HIV-2 antigen/antibody combination immunoassayHIV-1 and HIV-2 antibodies Lab Routine Missed menses , unspecified gestational age Ordered: 05/01/2025[facility] HealthcareComment on above:Ordered: 05/01/2025 End: 52-16-2168Pgq pelvis w/o & w/contrast materialMRI FEMALE PELVIS WO/W IVCON Radiology Routine Pelvic and perineal pain 1 Occur[facility] 05/17/2023 [facility] Work Phone: Comment on above:1 Occurrences starting 05/17/2023 until 4Reagin Ab [Presence] in Serum by RPRRPR Lab Routine Missed menses , unspecified gestational age Ordered: 05/01/2025[facility] Comment on above:Ordered: 05/01/2025Rubella antibody, IgGRubella antibody, IgG Lab Routine Missed menses , unspecified gestational age Ordered: 04/2025[facility] HealthcareComment on above:Ordered: 05/01/2025 End: 57-01-4113AvhvyhBarn[facility] Work Phone: Comment on above:Once (Lab) for 1 Occurrences starting 11/30/2022 until 11/30/2022, 1 completed End: 30-08-7239NT for pregnancyUS OB follow up transabdominal approach Imaging Routine Gestational diabetes mellitus (GDM), antepartum, gestational diabetes method of control unspecified ([facility]) every 4 weeks for 2 Occurrences starting 09/16/2025 until 12/17/2025[facility] Work Phone: comment on above:every 4 weeks for 2 Occurrences starting 09/16/2025 until 6CUniversity Hospitals Health SystemME OR Immunizations Immunization DateImmunizationNotesCare AkzailitLlrstiod02-65-5469amxgetkjr A vaccine, adult dosageCorey Kiesha DO Work Phone: [facility] HealthcareRpcfrnurff45-37-5496ycnac papilloma virus vaccine, quadrivalentCorey Kiesha DO Work Phone: [facility] HealthcareUeazmiqyns92-05-0523biopmhdak, seasonal, injectable, preservative freeCorey Kiesha DO Work Phone: [facility] HospitalVljtwcrdbl75-15-6058gavsaffvf virus vaccine, unspecified formulationGina Moschella DO Work Phone: [facility], IncQtific12-59-1838sulwi papilloma virus vaccine, quadrivalentCorey Kiesha DO Work Phone: [facility] HospitalAkzajzumhx63-67-1202uqrxcfrun A vaccine, adult dosageCorey Kiesha DO Work Phone: [facility] HospitalKjkblfmmxi71-44-4752swiql papilloma virus vaccine, quadrivalentCorey Kiesha DO Work Phone: [facility] HospitalQoprknmqiz24-93-9984farpahr toxoid, reduced diphtheria toxoid, and acellular pertussis vaccine, adsorbedCorey Kiesha DO Work Phone: [facility] HospitalCymdbjokss24-41-2177xmoadqswgnrtk polysaccharide (groups A, C, Y and W-135) diphtheria toxoid conjugate vaccine (MCV4P)Nathan Kiesha DO Work Phone: [facility] HospitalFkdesvarvr48-22-7270yqlrhxmyuo, tetanus toxoids and acellular pertussis vaccine, unspecified formulationCorey Kiesha DO Work Phone: [facility] HospitalEudechndfp71-18-8941mckyxyw, mumps and rubella virus vaccineCorey Kiesha DO Work Phone: [facility] HospitalJofrenibeh23-33-6900hxlrjvvmez vaccine, inactivatedCorey Kiesha DO Work Phone: [facility] HospitalJeosjhnfam08-10-9326xnfnbzntjr, tetanus toxoids and acellular pertussis vaccine, unspecified formulationCorey Kiesha DO Work Phone: [facility] HospitalFwoqjwkueu69-99-0768PLS-Vuuiioqjaou influenzae type b conjugate vaccineCorey Kiesha DO Work Phone: [facility] HospitalWzqudizwty27-26-4162azvfptenn B vaccine, pediatric or pediatric/adolescent dosageCorey Kiesha DO Work Phone: [facility] HospitalEqxuyidmqk37-99-4795afimttu, mumps and rubella virus vaccineCorey Kiesha DO Work Phone: [facility] HospitalRqxaikranm69-30-8743vyddugaws poliovirus vaccine, live, oralCorey Kiesha DO Work Phone: [phone] [place], [place] [address]Nulcmfidbq27-35-6059KDD-Ogbdbjqnctj influenzae type b conjugate vaccineCorey Kiesha DO Work Phone: [facility] HospitalVhyqiyjlib17-71-3155kdlyfwjem B vaccine, pediatric or pediatric/adolescent dosageCorey Kiesha DO Work Phone: [phone] [place], [place] [address]Klhhehwwyn02-86-7867cdpqxkmcz poliovirus vaccine, live, oralCorey Kiesha DO Work Phone: [phone] [place], [place] [address]Gcxtksuvpa34-00-4692HYF-Rdtaqwjawwh influenzae type b conjugate vaccineCorey Kiesha DO Work Phone: [phone] [place], [place] [address]Hmxbrwiqqb70-99-4118lkszzpybo B vaccine, pediatric or pediatric/adolescent dosageCorey Kiesha DO Work Phone: [phone] [place], [place] [address]Xncgbhovsw30-12-0700wbmixdnus poliovirus vaccine, live, oralCorey Kiesha DO Work Phone: [phone] [place], [place] [address]NEGATED: Highlighted row has not occurred!85-73-3754clsrozh, mumps and rubella virus vaccineKatherine Ryder DO Work Phone: [facility] HealthComment on above:Deferred: Other - Rubella ImmuneNEGATED: Highlighted row has not occurred!29-07-5213qtuurdm toxoid, reduced diphtheria toxoid, and acellular pertussis vaccine, adsorbedKatcarlos Ryder DO Work Phone: [facility] HealthComment on above:Deferred: No longer needed - Refused Tdap vaccine. Payers DatePayer CategoryPayerPolicy [id number] Managed Care - [employer] [id number] [facility] [id number] [id number] 61-83-1815KeiiAdvanced [facility] [id number].9.573675.914790.61538-00-2297Gqvufpn97-75-1991 MwceocaMRM018K4004600-86-1673Kvvxwtp Health Insurance [id number] [id number] Health [id number] 2.16.840.1.850236.3.579.2.174 [id number] 2.16.840.1.664641.3.57[id number] 2.16.840.1.910623.3.57[id number] 2.840.1.799520.3.57[id number] 2.840.1.761629.3.579.2.36925-95-2286Ozyfkwf30489565 2.840.1.568765.3.579.2.[id number] 2.840.1.641860.3.579.2.50595-33-8596Dmfouno90858592 2.16840.1.049797.3.579.[id number] 2.840.1.224981.3.579.[id number] 2.16840.1.147752.3.57[id number] 2.840.1.004273.3.57[id number] 2.16840.1.487317.3.579.2.977295-82-3063Kpjzlhd03493865 2.840.1.674915.3.579.2.507133-04-9070Bdsjese67573460 2.16.840.1.723409.3.579.2.697260-71-6659Htbftru49263902 2.16.840.1.267130.3.579.2.4[id number] 2.16.840.1.123948.3.579.2.742426-69-7792Cjkllrs15088356 2.840.1.806388.3.579.2.957258-42-9059Ukhstqc76483628 2.16.840.1.135136.3.579.2.623932-44-9119Rxmzudf62806307 2.840.1.108065.3.579.2.664129-49-4076Spdhjhj11255595 2.0.1.520917.3.579.2.331381-65-1595Hnrqsri17908328 2.840.1.881019.3.579.2.660838-19-3870Wdoagmy10792219 2.0.1.419964.3.579.[id number] 2.0.1.657739.3.57[id number] 2..1.587653.3.579.2.720965-37-8734Rsualls9086325 2.840.1.575435.3.579.2.5334Dvshfuq10986662 2.0.1.929716.3.579.2.531 Social History DateTypeDetailFacilityStart: 07-16-2023 End: 51-51-9595Lsusvy uses seat beltAlways uses seat beltNOMS HealthcareStart: 03-10-2021 End: 88-41-2544Fntfduy smoking statusNever smoked tobacco (finding)[facility] Hospitaltart: 64-20-6753Kpyhgde smoking statusNeverMartins Ferry Hospitaltart: 07-16-2023 End: 02-74-7062Dzj [facility] Other ToVan Wert County HospitalComment on above: denies.Tobacco smoking statusMartins Ferry Hospitaltart: 04-11-2023 End: 58-02-6426Rswxfqn use and exposureSmokeless tobacco non-userSt. Mary's Medical Centertart: 04-11-2023 End: 83-27-2591Ebasgau intakeCurrent drinker of alcohol (finding)[facility]: 92-36-8108Cyyvgjd Commentmaybe a few drinks a monthSalem City Hospital Start: 28-52-8504Tin Assigned At BirthNot on [facility]Start: 01-10-2024 End: 03-63-6376Dhpwiro intakeLifetime non-drinker (finding)[facility] HealthWithin the last year, have you been [...] got money to buy more.Never trueNOMS HealthcareStart: 74-05-8840Aiykieflr80QWEI HealthcareStart: 05-54-2756Eqtnjuh Commentcaffeine: 1-2 cups per day, coffee and popNOND HealthcareStart: 86-41-1260Elgitro SDOH IPV Xzhe4Krxlx HealthStart: 73-57-9667Zsmonuk SDOH Housing Places Hlnmr0Garid HealthStart: 04-12-2022 [facility]Start: 11-18-2022 End: 48-61-7155Gcjbrdqa to SARS-CoV-2 (event)Not sureSumma HealthAre you now , , , , never or living with a partner? MarriedNOMS HealthcareDo you feel stress - tense, restless, nervous, or anxious, or unable to sleep at night because yourmind is troubled all the time - these days [OSQ]Only a littleNOND HealthcareStart: 12-02-2018 End: 65-38-6224TzwTdexlh (finding)[facility]: 15-17-5177[facility] 08-19-2025 End: 61-01-9524Rtntrpwrp beverage intakeCurrent non-drinker of alcohol (finding) [facility] Medical Equipment Procedure CodeEquipment CodeEquipment Original TextEquipment IdentifierDates [id number]: 08-20-2025 End: each by In Vitro route Daily Use to check FSBS four times daily [id number]: 08-20-2025 End: 61-35-0670Loa pen needles to give insulin.[id number]: 09-04-2025 Functional Status PnqjFdctcfpqvpJmvibbIkxyqwah47-44-5142Hdisc score [AUDIT-C]0 09/10/2025 10:17 AM Danae Neumann [facility]09-04-2025Patient Health Questionnaire 2 item (PHQ-2) [Reported][facility] HospitalAmlzgmlwlt00-24-1360Mmoar score [AUDIT-C]1 12/29/2024 10:25 PM EST Mychart, GenericNOMS Atvmngygfd48-98-8637Ukm often do you have a drink containing alcohol?Monthly or less 12/29/2024 10:25 PM EST Mychart, Generic Monthly or lessNOMS Natgkcqwbx92-14-6774Lyagefqjpw status Patient does not drink 12/29/2024 10:25 PM EST Mychart, Generic Patient does not drinkNOMS Yfzrxqbfrb07-85-5981Vbp often do you have 6 or more drinks on 1 occasion?Never 12/29/2024 10:25 PM Enriqueta Bhat [facility] 87-74-4797Bekpmwj Health Questionnaire 2 item (PHQ-2) [Reported][facility] 67-59-2508Tfkaeepnwf StatusN/[facility]03-08-2023Functional StatusN/[facility]02-04-2023Functional StatusN/[facility]01-02-2023Functional StatusN/[facility] 07-14-2022N/[facility] Clinical Notes 04-18-2022 to 09-21-2025 Note Date & UtfeLopdOvhzlbtz49-37-0148 Miscellaneous Notes* Telephone Encounter - SILKE Baker [...] snack and Kayleigh wondered what you had. Juhi says she most likely had some candy, suggested if she have a sweet that it might work better earlier in the day. Continue to send in blood sugar logs weekly. documented in [facility] Telephone encounter Note* Telephone Encounter - SILKE [...] snack and Kayleigh wondered what you had. Juhi says she most likely had some candy, suggested if she have a sweet that it might work better earlier in the day. Continue to send in blood sugar logs weekly. [facility]10-27-2025 History of Present illness Narrative* Kayleigh Meza PA-C - 09/21/2025 12:28 PM EDT Insulin dose increased due to elevated fastings. Kayleigh Meza PA-C 09/21/25 1229 documented in this encounterMain Campus Medical Center10-22-2025 Miscellaneous Notes* Telephone Encounter - Cha Harris [...] blood sugars next week. documented in this encounterMain Campus Medical Center10-22-2025 Telephone encounter Note* Telephone Encounter [...] send in new blood sugars next week. [employer] Ivnbgz87-17-8116 History of Present illness Narrative* Steph Keane, MANAGER MANAGING - 09/16/2025 3:20 PM EDT Reason for Appointment: Patient ID: Juhi Gama is a 30 y.o. female who presents for No chief complaint on file. Patient presents today for Return OB appointment. MEDICATIONS Current Outpatient Medications Medication Instructions Alcohol Swabs (Alcohol Prep Pad) 70 % pads 1 Pad, Topical, Daily, Use four times daily to check FSBS. Blood Glucose Monitoring Suppl (D-[place] [employer] Glucometer) w/Device kit 1 kit, Does not [...] John San infection GDM (gestational diabetes mellitus) ([facility]) Headache History of menstrual cramps ([facility]) Varicella zoster Visual impairment HISTORY PAST MEDICAL HISTORY SOCIAL HISTORY Past Medical History: Diagnosis Date Amenorrhea d/t oral contraceptive pills Endometriosis John San infection GDM (gestational diabetes mellitus) ([facility]) Headache History of menstrual cramps severe Hypertension ([facility]) x1 Varicella zoster unsure Visual impairment [...] History: Procedure Laterality Date APPENDECTOMY 05/2016 at [facility] CURETT[facility] 12/2022 retained placenta DISTAL [...] nursing note reviewed. Exam conducted with a consulting services project manager present. Vitals: Estimated body mass index is 29.78 kg/m as calculated from the following: Height as of 07/30/25: 5' 2 . Weight as of this encounter: 162 lb 12.8 oz. BP: 120/80 Patient's last menstrual period was 02/21/2025. Assessment/Plan ICD-10-CM 1. 29 weeks gestation of ([facility]) Z3A.29 POCT urinalysis dipstick manually resulted 2. Third trimester ([facility]) Z34.93 POCT urinalysis dipstick manually resulted 3. Hypertension affecting , antepartum ([facility]) O16.9 4. Gestational diabetes mellitus (GDM), antepartum, gestational diabetes method of control unspecified ([facility]) O24.419 Return OB: Patient presents today [...] and continues to report glucose log to [facility]. Follow up Ultrasound in 4 weeks. Orders Placed This Encounter Procedures POCT urinalysis dipstick manually resulted Follow Up: Patient is to return to office in 2 week for routine OB appointment. Documented by Steph Keane NP on behalf of: Nathan Pop DO documented in this encounterSamaritan HospitalDpsqqzomlr25-10-8002 History of Present illness Narrative* Madhuri Monroy MD - 09/10/2025 11:00 AM EDT Video Visit via Real-time Synchronous Audiovisual Provider Location: [facility], MATERNAL- MEDICINE [address] [place] [address], [address] [place] [id number] Patient Location: [facility] OB office Patient Location Instructor Pilot: None Video Visit Consent Statement: I discussed [...] that there are some limitations compared to dqky-us-ozgd evaluations. We elected to proceed. REASON FOR [...] and the other consultants, we search on mii and all the available care everywhere epic I did review all the imaging studies of the patient available on EMR, ordered by the primary care physician and the other call center support consultant HABITS: Patient activity no restrictions, diet [...] weeks . - follow-up survey with the [facility] office visits scheduled. - continue serial [...] patient is in complete care of her tar heel. Patient does have ultrasound video visit scheduled [...] the provider today? none documented in this encounterMain Campus Medical Center10-10-2025 History of Present illness Narrative* [...] Yes Have you been seen here at [facility] in a previous ? No Recent ER visits or hospitalizations? 09/03/25 Patti to r/o preeclampsia. Patient states labs WNL Bring blood sugar log or meter with you today? (Please bring them with you for every visit at [facility]) Yes Flu vaccine (Sep-January)? N/A Any [...] and the other consultants, we search on mii and all the available care everywhere epic I did review all the imaging studies of the patient available on EMR, ordered by the primary care physician and the other call center support consultant HABITS: Patient activity no restrictions, diet [...] checking blood glucose and remote evaluation through [facility] office until delivery. 5. Discontinue blood [...] patient is in complete care of her tar heel. Patient does have ultrasound video visit scheduled [...] with questions or concerns. documented in this encounterMain Campus Medical Center10-09-2025 History of Present illness Narrative* Steph Keane NP - 09/03/2025 3:50 PM EDT Reason for Appointment: Patient ID: Juhi Gama is a 30 y.o. female who presents for Routine Visit Patient presents today for Return OB appointment. MEDICATIONS Current Outpatient Medications Medication Instructions Alcohol Swabs (Alcohol Prep Pad) 70 % pads 1 Pad, Topical, Daily, Use four times daily to check FSBS. Blood Glucose Monitoring Suppl ([employer]-[place] [employer] Glucometer) w/Device kit 1 kit, Does not apply, Daily, Use four times daily to check FSBS. In the morning prior to breakfast & 1 hour after each meal for a total of 4times daily. whkxyhvpxy-zfpkaex-ctszchpj (Fiorinal) 50-325-40 MG capsule 1 capsule, Oral, [...] History: Procedure Laterality Date APPENDECTOMY 05/2016 at [facility] D[facility] CURETTAGE 12/2022 retained placenta DISTAL [...] nursing note reviewed. Exam conducted with a consulting services project manager present. Vitals: Estimated body mass index is 29.41 kg/m as calculated from the following: Height as of 07/30/25: 5' 2 . Weight as of this encounter: 160 lb 12.8 oz. BP: 170/90 Patient's last menstrual period was 02/21/2025. ASSESSMENT & PLAN ICD-10-CM 1. 27 weeks gestation of ([facility]) Z3A.27 POCT urinalysis dipstick manually resulted 2. Second trimester ([facility]) Z34.92 Documented by Steph Keane NP on behalf of: Steph Keane NP documented in this encounterSamaritan HospitalZqpxfgeqih08-56-1525 Miscellaneous Notes* Telephone Encounter - Cha Harris [...] Pt asked to be transferred to the [facility] to make that appt. documented in this encounterMain Campus Medical Center10-07-2025 Telephone encounter Note* Telephone Encounter [...] to the sched to make that appt. [facility]10-02-2025 History of Present illness Narrative* Steph Keane, MANAGER MANAGING - 08/27/2025 3:20 PM EDT Reason for Appointment: Patient ID: Juhi Gama is a 30 y.o. female who presents for Routine Visit Patient presents today for Return OB appointment. MEDICATIONS Current Outpatient Medications Medication Instructions Alcohol Swabs (Alcohol Prep Pad) 70 % pads 1 Pad, Topical, Daily, Use four times daily to check FSBS. Blood Glucose Monitoring Suppl ([employer] Glucometer) w/Device kit 1 kit, Does not [...] History: Procedure Laterality Date APPENDECTOMY 05/2016 at [facility] CURETT[facility] 12/2022 retained placenta DISTAL [...] nursing note reviewed. Exam conducted with a consulting services project manager present. Vitals: Estimated body mass index is 29.23 kg/m as calculated from the following: Height as of 07/30/25: 5' 2 . Weight as of this encounter: 159 lb 12.8 oz. BP: (!) 158/92 Patient's last menstrual period was 02/21/2025. ASSESSMENT & PLAN ICD-10-CM 1. 26 weeks gestation of ([facility]) Z3A.26 POCT urinalysis dipstick manually resulted 2. Second trimester ([facility]) Z34.92 Return OB: Patient presents today [...] labs and have her evaluated today at [facility] OB. I discussed with OB today and they are aware that patient is coming to be ev aluated. Orders Placed This Encounter Procedures POCT urinalysis dipstick manually resulted Follow Up: Patient is to return to office in 2 week for routine OB appointment. Documented by Steph Keane NP on behalf of: Steph Keane NP documented in this encounterSamaritan HospitalGbrxfkwhsf26-66-7097 Group counseling note* Group Note - Kerline [...] Face to face time was 80 minutes. [facility] Work Phone: [phone]) [phone] Miscellaneous Notes* Group Note - Kerline Augustin [...] time was 80 minutes. documented in this encounterCopley HospitalHitFix Ityqvh58-14-0926 History of Present illness Narrative* Steph Keane [...] History: Procedure Laterality Date APPENDECTOMY 05/2016 at [facility] CURETTAGE 12/2022 retained placenta DISTAL [...] nursing note reviewed. Exam conducted with a consulting services project manager present. Vitals: Estimated body mass index is 27.82 kg/m as calculated from the following: Height as of 07/30/25: 5' 2 . Weight as of this encounter: 152 lb 1.9 oz. BP: 138/82 Patient's last menstrual period was 02/21/2025. ASSESSMENT & PLAN ICD-10-CM 1. 24 weeks gestation of ([facility]) Z3A.24 POCT urinalysis dipstick manually resulted 2. Second trimester ([facility]) Z34.92 POCT urinalysis dipstick manually resulted [...] on Labetalol 100mg BID. Will refer to [facility] for evaluation. Patient deniesany Headache or blurred vision. Documented by Steph Keane NP on behalf of: Nathan Pop DO documented in this encounterSamaritan HospitalKbnzvnxgsy43-90-9089 History of Present illness Narrative* Eliceo Beltran DO - 07/30/2025 3:40 PM EDTAssociated Problem(s): Hypertension Record Blood Pressures 2-4 times weekly and record. Return with readings at next appointment. Call with readings if sees significant changes * Eliceo Beltran, - 07/30/2025 3:40 PM EDT Images [...] infection Headache History of menstrual cramps Hypertension ([facility]) Varicella zoster Visual impairment Objective ?Quick [...] Orders: Lipid panel; Future documented in this encounterSamaritan HospitalUnijwhdkkp73-86-8803 History of Present illness Narrative* Christine Ravi [...] San infection Headache History of menstrual cramps ([facility]) Varicella zoster Visual impairment HISTORY PAST [...] History: Procedure Laterality Date APPENDECTOMY 05/2016 at [facility] CURETTAGE 12/2022 retained placenta DISTAL [...] nursing note reviewed. Exam conducted with a consulting services project manager present. Vitals: Estimated body mass index is 26.48 kg/m as calculated from the following: Height as of 12/30/24: 5' 2 . Weight as of this encounter: 144 lb 12.8 oz. BP: 120/80 Patient's last menstrual period was 02/21/2025. ASSESSMENT & PLAN ICD-10-CM 1. 20 weeks gestation of ([facility]) Z3A.20 POCT urinalysis dipstick manually resulted 2. Second trimester ([facility]) Z34.92 POCT urinalysis dipstick manually resulted [...] of: Nathan Pop DO documented in this encounterSamaritan HospitalToosdmdifm95-76-8685 History of Present illness Narrative* Steph Keane [...] History: Procedure Laterality Date APPENDECTOMY 05/2016 at [facility] CURETTAGE 12/2022 retained placenta DISTAL [...] nursing note reviewed. Exam conducted with a consulting services project manager present. Vitals: Estimated body mass index is 26.73 kg/m as calculated from the following: Height as of 25: 5' 2 . Weight as of this encounter: 146 lb 1.9 oz. BP: 118/74 Patient's last menstrual period was 02/21/2025. ASSESSMENT & PLAN (Z34.92) Second trimester ([facility]) Plan: POCT urinalysis dipstick manually resulted, Alpha fetoprotein, maternal, Alpha fetoprotein, maternal (Z3A.17) 17 weeks gestation of ([facility]) Plan: POCT urinalysis dipstick manually resulted, Alpha fetoprotein, maternal, Alpha fetoprotein, maternal (Z36.89) Screening, , for anatomic survey ([facility]) Plan: US OB 14+ weeks anatomy [...] of: Nathan Pop DO documented in this encounterSamaritan HospitalPhgefzxpgt96-93-0779 History of Present illness Narrative* Steph Keane [...] San infection Headache History of menstrual cramps ([facility]) Varicella zoster Visual impairment HISTORY PAST [...] History: Procedure Laterality Date APPENDECTOMY 05/2016 at [facility] CURETTAGE 12/2022 retained placenta DISTAL [...] nursing note reviewed. Exam conducted with a consulting services project manager present. Vitals: Estimated body mass index is 25.24 kg/m as calculated from the following: Height as of 25: 5' 2 . Weight as of this encounter: 138 lb. BP: 122/80 Patient's last menstrual period was 02/21/2025. ASSESSMENT & PLAN ICD-10-CM 1. Second trimester ([facility]) Z34.92 POCT urinalysis dipstick manually resulted 2. 13 weeks gestation of ([facility]) Z3A.13 Return OB: Patient presents today [...] of: Nathan Pop DO documented in this encounterSamaritan HospitalWlsemzqlyv25-48-5900 History of Present illness Narrative* Hina Go, [employer] - 05/01/2025 9:00 AM EDT Reason for [...] History: Procedure Laterality Date APPENDECTOMY 05/2016 at [facility] D[facility] CURETTAGE 12/2022 retained placenta DISTAL [...] or undercooked meat, and [facility] away from [facility]. Patient has also been advised [...] by: Hina Go LPN documented in this encounterSamaritan HospitalVyxqxpsrgq90-87-2513 History of Present illness Narrative* Candis Yanes LPN - 01/19/2025 2:50 PM EST Reason for Appointment: Patient ID: Juhi Gama is a 29 y.o. female who presents for Painful [place] Patient presents today for Consult appointment. MEDICATIONS Current Outpatient Medications Medication Instructions jeuwygsttn-xolmvleibpckg-slxhyatz 50-325-40 MG tablet 1 tablet, Oral, Every 6 hours PRN meloxicam (MOBIC) 15 mg, Oral, Daily metoprolol succinate XL (Toprol-XL) 25 MG 24 hr tablet Take 1 tablet by mouth daily ALLERGIES No Known Allergies PROBLEMS Active Ambulatory Problems Diagnosis Date Noted Acquired equinus deformity of foot 03/29/2023 Displacement of cervical intervertebral disc without myelopathy 03/29/2023 Dysmenorrhea 03/29/2023 Endometriosis 03/29/2023 Gastroparesis 03/29/2023 Hypertension ([facility]) 03/29/2023 Intractable migraine without aura and [...] History: Procedure Laterality Date APPENDECTOMY 05/2016 at [facility] D[facility] AND CURETTAGE 12/2022 retained placenta DISTAL [...] nursing note reviewed. Exam conducted with a consulting services project manager present. Vitals: Estimated body mass index is [...] patient and patient given direct extension to Lamination Spinner for any questions/concerns pertaining to fertility. Documented by Candis Yanes LPN on behalf of: Nathan Pop DO documented in this encounterSamaritan HospitalUsxfnvzonq89-30-5795 History of Present illness Narrative* Eliceo Beltran [...] History: Procedure Laterality Date APPENDECTOMY 05/2016 at [facility] D[facility] AND CURETTAGE 12/2022 retained placenta DISTAL [...] min Stress: No Stress Concern Present (12/29/2024) Citizen Of [place] [employer] - Occupational Stress Questionnaire Feeling of Stress : Only a little Social Connections: Unknown (12/29/2024) Social Connection and Isolation Panel [NHANES] Frequency of Communication with Friends and Family: More than three times a week Frequency of Social Gatherings with Friends and Family: Once a week Attends Religion Services: Patient declined Active Member of Clubs [...] with the patient today. Current Outpatient Medications: sjtyhshpkj-adoplvxmthhkt-cxxatqmo 50-325-40 MG tablet, Take 1 tablet by mouth every 6 (six) hours if needed for headaches, Disp: 20 tablet, Rfl: 0 desogestrel-ethinyl estradiol (Apri) 0.15-30 MG-MCG tablet, Take 1 tablet by mouth Daily, Disp: 21 tablet, Rfl: 12 metoprolol succinate XL (Toprol-XL) 25 MG 24 hr tablet, Take 1 tablet by mouth daily, Disp: 90 tablet, Rfl: 1 documented in this encounterSamaritan HospitalIgzrxywnxh74-33-5842 History of Present illness Narrative* Virgen Steen LPN - 08/18/2024 11:00 AM EDT Reason for Appointment: Patient ID: Juhi Cope is a 29 y.o. female who presents for Well Women Visit Patient presents today for Annual Exam. MEDICATIONS Current Outpatient Medications Medication Instructions umnlpwfisr-kmovxhegtlbny-uaigtyni 50-325-40 MG tablet 1 tablet, Oral, Every [...] History: Procedure Laterality Date APPENDECTOMY 05/2016 at [facility] D[facility] AND CURETTAGE 12/2022 retained placenta DISTAL [...] nursing note reviewed. Exam conducted with a consulting services project manager present. Vitals: Estimated body mass index is [...] of: Zenobia Gutierrez PA-C documented in this encounterSamaritan HospitalRjaedizjai93-04-1731 History of Present illness Narrative* Christine Ravi LPN - 07/22/2024 9:50 AM EDT Reason for Appointment: Patient ID: Juhi Cope is a 29 y.o. female who presents for Dysmenorrhea Patient presents today for Acute Visit. MEDICATIONS Current Outpatient Medications Medication Instructions fdukefygnx-thxixoayhesxq-epgtmbvd 50-325-40 MG tablet 1 tablet, Oral, Every [...] History: Procedure Laterality Date APPENDECTOMY 05/2016 at [facility] AND CURETTAGE 12/2022 retained placenta DISTAL [...] nursing note reviewed. Exam conducted with a consulting services project manager present. Vitals: Estimated body mass index is [...] of: Nathan Pop DO documented in this encounterSamaritan HospitalJhuozrvmma82-11-8466 Telephone encounter Note* Telephone Encounter - Candis Garces - 04/29/2024 8:23 AM EDT Received message from albert Webb to cancel surgery and all appts as pt had services elsewhere [facility]06-04-2024 Miscellaneous Notes* Telephone Encounter - Candis Garces - 04/29/2024 8:23 AM EDT Received message from albert Webb to cancel surgery and all appts as pt had services elsewhere documented [facility] encounterSal[facility]05[facility] Telephone encounter Note * Telephone Encounter - Anna De Leon - 04/25/2024 1:10 PM EDT Pt got in sooner for surgery with her local morgue attendant. Please cancel surgery and all pre and post op appts. [facility]05-31-2024 Miscellaneous Notes* Telephone Encounter - Anna De Leon - 04/25/2024 1:10 PM EDT Pt got in sooner for surgery with her local morgue attendant. Please cancel surgery and all pre and post op appts. documented in this encounterSalem City Hospital02-15-2024 History of Present illness Narrative* Nathan [...] History: Procedure Laterality Date APPENDECTOMY 05/2016 at [facility] CURETT[facility] 12/2022 retained placenta DISTAL [...] nursing note reviewed. Exam conducted with a consulting services project manager present. Vitals: Estimated body mass index is [...] of: Nathan Pop DO documented in this encounterSamaritan HospitalDoqpoqyacp94-46-9073 Miscellaneous Notes* Telephone Encounter - Pippa Simon [...] mg tablet Class: Normal Route: ORAL Order: [id number] E-Prescribing Status: Receipt confirmed by pharmacy (05/17/2023 [...] that may recur and often requires a vermin exterminator treatment plan. Once endometriosis is identified, [...] Department Center 05/20/2024 10:00 AM Kevin Crenshaw Bulk Gas Specialist [facility] 06/23/2024 10:30 AM Charlene Rodriguez DO [facility] Appointment scheduled: As listed above Action taken: Refill request routed to clinician Pippa Simon RN January 03, 2024 4:29 PM * Telephone Encounter - Alena Tracy - 01/02/2024 3:52 PM EST Patient: Juhi Cope : 1995 Provider: Charlene Rodriguez DO Caller Phone #: [phone] (home) [phone] (cell) Reason for call: b/c refill Message routed to nurse triage Date of next visit: MEGAN: 12/10/2023 documented in this encounterJennifer [place] [address]-15-2024 NoteHNO ID: [id number] Author: CHARLENE RODRIGUEZ DO Service: ? Author Type: Physician Type: Progress Notes Filed: 12/10/2023 15:14 Note Text: [facility] [place] SECTION FOR MINIMALLY INVASIVE GYNECOLOGIC SURGERY OUTPATIENT VISIT DATE 12/10/2023 OUTPATIENT VISIT TYPE Follow-up visit PRIMARY CARE PHYSICIAN: Denny Rodríguez [address] [place] [address] REFERRING PHYSICIAN: Self CHIEF COMPLAINT: No chief [...] MRI: no evidence of Past Gynecologic History: Bulk Gas Specialist History LMP: 07/08/2023 (Exact Date), Having periods Age at Menarche: 14 Age at First : 27 Age at Menopause: Bulk Gas Specialist History Comments: Sexual Activity: Never; No [...] presents today with pelvic (more content not included)...[facility]23 Hospital Discharge instructions Patient Education 09/12/2023 [...] Follow these instructions at home: Medicines Take upnp-gxg-wmakore and prescription medicines only as told by [...] buy a blood pressure monitor at most [employer] or online. Where to find more information [employer] Heart Association: www.heart.org Contact a health care [...] provider. Document Revised: 07/27/2022 Document Reviewed: 07/27/2022 [employer] Patient Education 2022 [employer]. 09/12/2023 18:18:13 Hypertension, Adult, Iqyb-fk-Tciu Hypertension, Adult Hypertension is another name for [...] doctor. Keep all follow-up visits. Medicines Take vtov-uxi-jxhmeak and prescription medicines only as told by [...] provider. Document Revised: 08/31/2022 Document Reviewed: 08/31/2022 e[employer]ift Patient Education 2022 [employer] 09/12/2023 18:18:13 General Headache Without Cause, Mikf-hg-Hfty General Headache Without Cause A headache is pain or discomfort you feel around the head or neck area. There are many causes and types of headaches. In some cases, the cause may not be found. Follow these instructions at home: Watch your condition for any changes. Let your doctor know about them. Take these steps to help with your condition: Managing pain Take evec-van-iemtvtr and prescription medicines only as told by [...] provider. Document Revised: 04/12/2022 Document Reviewed: 04/12/2022 [employer]ift Patient Education 2022 [employer] Follow Up Care 09/12/2023 17:21:57 With:DENNY RODRÍGUEZ Address: [address] [place] [address] [place] [address]- Business (1) When:09/15/2023 18:03:37 Comments:Follow-up with your primary care provider in 3 to 5 days. If symptoms worsen, do not improve, or new symptoms arise please report back to emergency department for further evaluation. [facility]10-18-2023 Evaluation + Plan noteExtracted from: Title:ED [...] date 09/12/23 18:02:00 EDT, 09/12/23 18:02:00 EDT [facility]10-16-2023 Instructions* Patient Instructions* Jihan Downs APRN.CNP - 09/10/2023 9:52 AM EDT Plan: Trial baclofen suppositories - can switch to pill vaginally if suppositories are not affordable Consider Pelvic floor physical therapy - can find local provider [email or web address] Consider going back to see Dr Kuldip Downs APRN.CNP documented in this [facility]Sal[facility]10-[facility]23 NoteHNO ID: [id number] Author: Charlene Rodriguez, DO Service: ? Author Type: Physician Type: Progress Notes Filed: 08/30/2023 11:15 AM Note Text: Tramadol rx sent to pharmacy.[facility]10-05-2023 History of Present illness Narrative* Charlene Rodriguez DO - 08/30/2023 11:13 AM EDT Tramadol rx sent to pharmacy. documented in this encounterSalem City Hospital10-05-2023 Miscellaneous Notes* Telephone Encounter - Chelsie Dueñas RN - 08/30/2023 10:50 AM EDT Last office visit: 08/24/2023 Assessment and Plan No diagnosis found. Trial baclofen suppositories Will send list of PTs Consider going back to Kuldip SIGNATURE: Jihan Downs APRN.RAWHIDE BONE ROLLER Office visit with Dr. Rodriguez 07/16/2023 IMPRESSION: [...] plan. Charlene Rodriguez DO documented in this encounterSalem City Hospital09-29-2023 NoteHNO ID: [id number] Author: Jihan Downs APRN.RAWHIDE BONE ROLLER Service: ? Author Type: Nurse Practitioner Type: Progress Notes Filed: 09/10/2023 9:53 AM Note Text: [facility] Department of Benign Gynecology [facility] PATIENT NAME: Juhi Cope DATE: 08/24/2023 Patient Name and verified: Yes Patient Location: [place] This Virtual Visit was completed using My Chart Zoom platform. I have communicated my name and active licensure. The patient's identity and physical location were verified at the time of this visit. Either the patient or their legal marketing representative has been informed of the risks [...] appointment yet. GI - constipation is improved Rosholt - hasn't tried due to pain and [...] physical therapy - or can go locally [facility] Trial flexeril at bedtime Can consider Baclofen suppositories Continue Norethindrone - can take up to 3 months for it to stop periods, take at same time every day Relaxation techniques Jihan Downs APRN.RAWHIDE BONE ROLLER OB History T0 L1 SAB0 IAB0 Ectopic0 Multiple0 Live Births0 Bulk Gas Specialist History LMP: 07/08/2023 (Exact Date), Having periods Age at Menarche: 14 Age at First : 27 Age at Menopause: Bulk Gas Specialist History Comments: Sexual Activity: Never; No [...] toxic appearing HEENT nor (more content not included)...[facility]09-29-2023 History of Present illness Narrative* Jihan Downs APRN.ANA LAURA - 08/24/2023 9:24 AM EDT Images from the original note were not included. [facility] Department of Benign Gynecology [facility] PATIENT NAME: Juhi Cope DATE: 08/24/2023 Patient Name and verified: Yes Patient Location: [place] This Virtual Visit was completed using My Chart Zoom platform. I have communicated my name and active licensure. The patient's identity and physical location wereverified at the time of this visit. Either the patient or their legal marketing representative has been informed of the risks [...] appointment yet. GI - constipation is improved Rosholt - hasn't tried due to pain and [...] physical therapy - or can go locally pelvicShenzhen Just[employer] Technologyab.[employer]knot Trial flexeril at bedtime Can consider Baclofen suppositories Continue Norethindrone - can take up to 3 months for it to stop periods, take at same time every day Relaxation techniques Jihan Downs APRN.RAWHIDE BONE ROLLER OB History T0 L1 SAB0 IAB0 Ectopic0 Multiple0 Live Births0 Bulk Gas Specialist History LMP: 07/08/2023 (Exact Date), Having periods Age at Menarche: 14 Age at First : 27 Age at Menopause: Bulk Gas Specialist History Comments: Sexual Activity: Never; No [...] Level: 3 - Low documented in this encounterSalem City Hospital09-22-2023 Miscellaneous Notes* Telephone Encounter - Marilee [...] Provider: Charlene Rodriguez DO Caller Phone #: [phone] (home) [phone] (cell) Reason for call: pt calling regarding mc message., still in pain. Please call [phone] Message routed to nurse triage Date of next visit: documented in this encounterSalem City Hospital09-07-2023 Miscellaneous Notes* Telephone Encounter - Candis Suárez RN - 08/02/2023 11:29 AM EDT PA for orilissa completed via Cover MyMeds. Juhi Cope (Morales: [id number]) - [id number] Orilissa 150MG tablets Status: Sent To Plan [...] too. Please advise. Thanks. documented in this encounterSalem City Hospital08-21-2023 NoteHNO ID: [id number] Author: Charlene Rodriguez, DO Service: ? Author Type: Physician Type: Progress Notes Filed: 07/16/2023 12:41 PM Note Text: [facility] SECTION FOR MINIMALLY INVASIVE GYNECOLOGIC SURGERY OUTPATIENT VISIT DATE 07/16/2023 OUTPATIENT VISIT TYPE Follow-up visit PRIMARY CARE PHYSICIAN: Denny Rodríguez [address] [place] [address] REFERRING PHYSICIAN: Denny Rodríguez CHIEF COMPLAINT: No [...] additional bowel lesions identified Past Gynecologic History: Bulk Gas Specialist History LMP: 07/08/2023 (Exact Date), Having periods Age at Menarche: 14 Age at First : 27 Age at Menopause: Bulk Gas Specialist History Comments: Sexual Activity: Never; No [...] Signs: 07/16/23 1115 BP: (more content not included)...[facility]07-18-2023 History of Present illness Narrative* Boo [...] 12, 2023 4:32 PM documented in this encounterSalem City Hospital07-18-2023 NoteHNO ID: [id number] Author: Rosio Malcolm RT(Bryant) Service: ? Author Type: Pattern Data Operator Type: Progress Notes Filed: 06/12/2023 4:32 [...] BY: RT Claudia(Bryant) June 12, 2023 4:32 PMCFayette [facility]07-[facility]-2023 NoteHNO ID: [id number] Author: Boo Singh RN Service: Nursing Author [...] June 12, 2023 TIME: 1:43 [facility]06-22-2023 NoteHNO ID: [id number] Author: Charlene Rodriguez, DO Service: ? Author Type: Physician Type: Progress Notes Filed: 05/21/2023 10:15 AM Note Text: [facility] SECTION FOR MINIMALLY INVASIVE GYNECOLOGIC SURGERY OUTPATIENT [...] to appointment last week Past Gynecologic History: Bulk Gas Specialist History LMP: 04/22/2023 (Exact Date), Having periods Age at Menarche: 14 Age at First : 27 Age at Menopause: Bulk Gas Specialist History Comments: Sexual Activity: Never; No [...] treatment plan. Charlene Rodriguez DO Tt: 20 minutesRiverside [facility] Hospital06-22-2023 History of Present illness Narrative* Charlene Rodriguez DO - 05/17/2023 1:05 PM EDT Images from the original note were not included. [facility] SECTION FOR MINIMALLY INVASIVE GYNECOLOGIC SURGERY OUTPATIENT [...] to appointment last week Past Gynecologic History: Bulk Gas Specialist History LMP: 04/22/2023 (Exact Date), Having periods Age at Menarche: 14 Age at First : 27 Age at Menopause: Bulk Gas Specialist History Comments: Sexual Activity: Never; No [...] DO Tt: 20 minutes documented in this encounterSalem City Hospital06-16-2023 Miscellaneous Notes* Telephone Encounter - Candis Suárez RN - 05/11/2023 4:19 PM EDT Reports vaginal bleeding, using panty liners, changing a few times a day, not severe. Biggest complaint is cramping. Has had 3 periods of bleeding recently - 04/22/2023 LMP, last a few days, 05/04-05/10 bleeding again 05/11/2023 started again today. Takes aygestin 5mg daily. She did not peanut picker flexeril. Encourage to peanut picker the flexeril as this will help with the cramping. Reviewed red flag bleeding symptoms that require trip to ER (soaking greater than one overnight padper hour, chest pain, shortness of breath, fatigue, palpitations).. Advised keep appt. Gives verbal understanding. Appointments for Next 60 Days Date Time Provider Location Dept Phone 05/17/2023 1:00 PM CHARLENE RODRIGUEZ [facility] [place] [phone] Candis Suárez RN * Telephone Encounter - Tawana Nair [facility] - 05/11/2023 1:19 PM EDT Reason for call: other - Vaginal bleeding Provider name: Dr Rodriguez Additional comments: patient having more vaginal bleeding and concerned she is getting worse. Recommendation: routed to nurse triage pool documented in this encounterSalem City Hospital06-06-2023 Instructions* Patient Instructions* Jihan Downs APRN.CNP - 05/01/2023 11:47 AM EDT Plan Pelvic floor physical therapy - or can go locally [employer] Trial flexeril at bedtime Can consider Baclofen suppositories - let me know if you want to trial after you go to PT Continue Norethindrone - can take up to 3 months for it to stop periods, take at same time every day Relaxation techniques Jihan Downs APRN.CNP Relaxation techniques for pain flares: [...] pelvic pain society (pelvicpain.org) documented in this encounterSalem City Hospital06-06-2023 History of Present illness Narrative* Jihan Downs APRN.CNP - 05/01/2023 10:30 AM EDT Juhi Cope is a 28 year old female who presents for problem visit for pain HPI: Pain is week before period and week of period. Worse on her period for every day she's bleeding Urinary - No symptoms GI - Always constipated. No meds Rosholt - painful always Pain is on left [...] L0 SAB0 IAB0 Ectopic0 Multiple0 Live Births0 Bulk Gas Specialist History LMP: 03/26/2023 (Approximate), Having periods Age at Menarche: Age at First : Age at Menopause: Bulk Gas Specialist History Comments: Sexual Activity: Never; No [...] Level: 4 - Moderate documented in this encounterSalem City Hospital06-06-2023 NoteHNO ID: [id number] Author: Jihan Downs APRN.ANA LAURA Service: ? [...] symptoms GI - Always constipated. No meds Rosholt - painful always Pain is on left [...] L0 SAB0 IAB0 Ectopic0 Multiple0 Live Births0 Bulk Gas Specialist History LMP: 03/26/2023 (Approximate), Having periods Age at Menarche: Age at First : Age at Menopause: Bulk Gas Specialist History Comments: Sexual Activity: Never; No [...] time every day Relaxation techniques Jihan Downs APRN.RAWHIDE BONE ROLLER Medical Decision Making: Problems: Moderate: New problem with uncertain prognosis Data: Unique source(s) for external note(s) reviewed: 1 Unique test result(s) reviewed: 1 Risk: Moderate: Drug management Medical Decision Making Level: 4 - ModerateR[facility]05-31-2023 Miscellaneous Notes* Telephone Encounter - Marilee [...] months. Lucila Foss RN documented in this encounterSalem City Hospital03-08-2023 Hospital Discharge instructions Patient Education 01/31/2023 [...] told by your health care provider. Take kqva-wuw-fdbsagz and prescription medicines only as told by [...] 01/03/2007 Document Revised: 10/25/2018 Document Reviewed: 01/25/2018 e[employer]ift Patient Education 2020 [employer] Follow Up Care 01/31/2023 13:43:01 With:Denny Meza Address:Unknown When:02/03/2023 18:59:31 Comments:Follow-up for evaluation of hypertension in context of known preeclampsia in the period With:DENNY RODRÍGUEZ Address: [address] [place] [address]- Business (1) When:Within 3 Day(s) [facility]03-08-2023 Evaluation + Plan noteExtracted from: Title:ED NoteAuthor:Mayur Mabry PA-C CDate:01/31/23 Flank pain (R10.9: Unspecifi ed abdominal pain) Headache (R51.9: Headache, unspecified) Orders: CTA Chest Hepatic Function Panel [facility]02-04-2023 Hospital Discharge instructions Patient Education 12/30/2022 13:59:51 WIRE ROPE SALES REPRESENTATIVE - Post D&C, Hysteroscopy, LEEP or [...] Instructions - FT (Custom) (Custom) 12/30/2022 13:55:16 WIRE ROPE SALES REPRESENTATIVE - Post D&C, Hysteroscopy, LEEP or [...] With:Denny Meza Address: [address], [address] [address]- Business (1) When: Unknown Comments:follow up in 1-2 weeks With:DENNY RODRÍGUEZ Address: [address] [place] [address]- Business (1) When:01/02/2023 09:21:18 [facility]02-04-2023 Evaluation + Plan noteExtracted from: Title:ANES Post-operative NoteAuthor:Art Agustin MDDate:12/30/22 Plan Transfer/Discharge: Transfer/Discharge Discharge when meets criteria ( From PACU to Ambulatory Surgery Unit, and To home ). Extracted from:Title:Gynecology Visit *Author:Nathan POP DO RDate:12/30/22 Impression and Plan retained products of conception, s/p 4wks-ultrasound reviewed, discussed options with patient, conservative tx vs surgical tx, consent obtained, mmc reviewed, procedure reviewed, Extracted from:Title:ANES Pre-operative NoteAuthor:Art Agustin MDDate: 12/30/22 Plan [place] Society of Anesthesiologists (ASA) physical status classification: [...] With Cult Reflex US Pelvis Non-OB Complete [facility]01-10-2023 History of Present illness Narrative* Tory Pimentel - 12/05/2022 1:35 PM EST Vital signs BP 127/87 Weight 149.2lb Pulse 106 Temp 96.7 * Paolo Diallo DO - 12/05/2022 1:35 PM EST Images from the original note were not included. Juhi Anatoliy 12/05/2022 27 y.o. Chief Complaint Patient [...] WHC: This patient was seen in the [facility] by the resident. I reviewed and agree with the care provided by the resident during or immediately following the visit including the patient's medical history, the resident's finding in the physical exam, patient's diagnosis and treatment plan. documented in this [facility]01-07-2023 NoteDepartment of Obstetrics and Gynecology Delivery Discharge Summary Admission on 11/28/2022 12:24 AM Hospital course: Juhi Cope at 35w1d admitted as a transfer from [facility] for [facility]. She was started on Magnesium [...] Information for the patient's : Francie Cope [[id number]] female 2425 g (5 lb 5.5 oz) Apgars: Information for the patient's : Francie Cope [[id number]] : : Girl Blood Type/Rh: O Antibody [...] Your Medications These medications were sent to [facility] [address] [place] [address] Hours: Sunday to Sunday 10 am to 6 pm docusate sodium 100 MG capsule ibuprofen 600 MG tablet NIFEdipine XL 30 MG 24 hr tablet Activity: Activity as tolerated Diet: Regular diet Follow-up Appointments: - visit - Blood pressure check If a patient meets criteria for hypertension, make sure the following are done prior to discharge: [] Order a blood pressure kit through [facility] (or the patient's own pharmacy on the weekend) [] Order the blood pressure log through [employer] [x] Place an office visit or telephone [...] physician if any of these occur.[facility]01-07-[facility]23 History of Present illness Narrative* Anna [...] FVL+Prothrombin (heterozygous), Antithrombin III, APLS Assessment/Plan: Juhi Stephensifeoma is PPD # 2 s/p Care [...] wheelchair) if she so chooses. Provider's Name: Kathe RyderDO PAOLO DO 12/01/2022, 5:32 AM Attestation Statement I [...] with more than 50% of the total thva-bc-aunv time of the visit in counseling/coordination of [...] be monitored and followed by the diet special equipment technician. CRISS Oshea * Alejandra Arcos RN [...] and reassuring. CCM. Cx:1/70/-3 FHT: Cat 1 [place]:q3-4 min A/P: 1. IOL-PreEwSF. FHT 130 baseline, with moderate variability, Accelerations present Yes, and rare late deceleration . Cervical exam unchanged. Cytotec x4 placed at this time. Patient intermittently feeling contractions. BP mild range. Cx: 1-2/70/-3 FHP: defer FHT: Cat I [place]: a3-4min A/P: 1. IOL-PreEwSF: FHT Category [...] Cx: unchanged FHP: defer FHT: Cat I [place]: q4min A/P: 1. IOL-PreEwSF: FHT Category [...] 11/29/2022 6:17 AM Cx:1-2/60/-3 FHT: Cat I [place]:q4-5mins A/P: 1. IOL-PreEwSF: Cat I FHT [...] per protocol. CCM. Cx:defer FHT: Cat I [place]:q4-6mins A/P: 1. IOL-PreEwSF: Cat I FHT with baseline 120, moderate variability, spontaneous accelerations, and no decelerations. BP normotensive to mild range since last note time. Pitocin @ 2 cc/hr, continue to titrate per protocol. Magnesium sulfate running for seizure prophylaxis, UOP 400 ml over past 4hours. CCM. Cx:defer FHT: Cat I [place]:q4-5mins A/P: 1. IOL-PreEwSF: Cat I FHT with baseline 135, moderate variability, spontaneous accelerations, and no decelerations. BP normotensive to mild range since last note time. Pitocin @ 6 cc/hr, continue to titrate per protocol. Magnesium sulfate running for seizure prophylaxis, UOP 600 ml over past 4hours. Will plan for AROM soon. CCM. Cx:defer FHT: Cat I [place]:irritability A/P: 1. IOL-PreEwSF: Pit @ 8 mu/min. Patient resting comfortably and only irritability tracing on toco. BP most recently mild range. On magnesium sulfate for seizure prophylaxis. UOP adequate. Continue magnesium and continue to titrate pitocin per protocol. Plan for AROM once patient rudi more regularly. Electronically signed by Cortney Velasquez DO 11/29/2022 4:21 PM Cx:/-3 FHT: Cat 1 [place]:Not tracing A/P: 1. IOL-PreEwSF. FHT 135 baseline, with moderate variability, Accelerations present Yes, and nodecelerations seen . AROM at this time for moderate amount blood tinged fluid. Pitocin at 8cc/hr. Maternal BP mild range. On Magnesium for Seizure prophylaxis. Patient with adequate urinary output. CCM. Cx: defer FHP: defer FHT: Cat II [place]: not tracing well A/P: 1. IOL-PreEwSF: [...] per RN FHP: defer FHT: Cat II [place]: q4min A/P: 1. IOL-PreEwSF: FHT Category [...] note for details documented [facility]01-07-2023 Hospital course Narrative* César Tran DO - 12/02/2022 12:32 PM EST Images from the original note were not included. Department of Obstetrics and Gynecology Delivery Discharge Summary Admission on 11/28/2022 12:24 AM Hospital course: Juhi Cope at 35w1d admitted as a transfer [facility] She was startedon Magnesium there and transported [...] Information for the patient's : Francie Cope [[id number]] female 2425 g (5 lb 5.5 oz) Apgars: Information for the patient's : Francie Cope [[id number]] : : Girl Blood Type/Rh: O Antibody [...] Your Medications These medications were sent to [facility] [address] [place] [address] Hours: Sunday to Sunday 10 am to 6 pm docusate sodium 100 MG capsule ibuprofen 600 MG tablet NIFEdipine XL 30 MG 24 hr tablet Activity: Activity as tolerated Diet: Regular diet Follow-up Appointments: - visit - Blood pressure check If a patient meets criteria for hypertension, make sure the following are done prior to discharge: [] Order a blood pressure kit through [facility] (or the patient's own pharmacy on the weekend) [] Order the blood pressure log through [employer] [x] Place an office visit or telephone [...] of these occur. documented in this [facility]01-06-2023 Note* Care Coordination - Christine Michelle [...] home. Denies any concerns at this time. [facility] [id number] Note* Care Coordination - Christine Michelle RN [...] home. Denies any concerns at this time. [facility] [id number] Miscellaneous Notes* Care Coordination - Christine Michelle [...] for this pt. Due to: infant in [facility] Hospital breast pump, supplies kit, swabs [...] Told patient to check with LC in [facility] for smaller flange sizes * L&D Delivery Note - Irina Kramer DO - 11/30/2022 4:04 AM EST Images from the original note were not included. Vaginal Delivery Note Department of Obstetrics and Gynecology Patient: Juhi Cope : 1995 Date of delivery: 11/30/2022 Pre-operative Diagnosis: Juhi Mojica0 at 35w1d 1. <37 weeks 2. PreEwSF Post-operative Diagnosis: Live Born female Delivering Sign Language Interpreter & Nicker(s): Dr. Bowden; Dr. Kramer Information: Information for the patient's : Francie Cope [[id number]] Information for the patient's : Francie Cope [[id number]] Description: normal Meconium Noted: No Anesthesia: epidural anesthesia Complications: None Application and Delivery: Juhi Cantley at 35w1d admitted for IOL-PreEwSF. Her [...] Clotilde Mg RN documented [facility] this [facility]01-06-2023 Obstetrics Note* Note - Ligia Bridges RN - 12/01/2022 9:00 AM EST 22.5mm flanges given to patient. Encouraged her to call for observation of pump session and smallerflanges. Martha in NICU to assist with personal pump. [facility], [id number] Hospital Discharge instructions* Discharge Instructions* Carol Bowden [...] as 8 weeks after delivery. Bleeding may peanut picker and then decrease again around 7-10 [...] avoid constipation you may take a mild qdas-mor-oqrhasc stool softener (such as colace) as recommended [...] positive or a Person Under Investigation (PUI) Cszkfh-tx-kgjwj transmission of COVID-19 during is unlikely, but after a baby is susceptible to lyvvpn-bj-nexuxy spread. After your baby is born, your [...] clean your hands with an alcohol-based hand drawer in hand that contains at least 60% alcohol. Clean your hands often Wash your hands often with soap and water for at least 20 seconds, especially after blowing your nose, coughing, or sneezing; going to the bathroom; and before eating or preparing food. If soap and water are not readily available, use an alcohol-based hand drawer in hand with at least 60% alcohol, covering all [...] healthcare provider to call the local or [place] health department. Persons who are placed underactive [...] isolation precautions should be made on a mlcn-vq-vnak basis, in consultation with healthcare providers and [facility] local health departments. Information on COVID-19 for [...] respiratory tract signs and symptoms. Ways to [place] with Anxiety & Stress It is normal [...] an illness that was first found in [facility], in October 2019. It has since spread [...] seen in people before. This virus spreads zhsnza-wr-empvfp through droplets from coughing and sneezing. It [...] water aren't available, use an alcohol-based hand drawer in hand. Call 911 anytime you think you may [...] of: February 25, 2020 Content Version: 12. [employer]. Care instructions adapted under license by your healthcare professional. If you have questions about a medical condition or this instruction, always ask your healthcare professional. [employer] disclaims any warranty or liability for your use of this information. General Recommendations for Routine Cleaning and Disinfection of Households Community members can practice routine cleaning of frequently touched surfaces (for example: tables, doorknobs, light switches, handles, desks, toilets, faucets, sinks) with household cripple cutter and EPA-registered disinfectants that are appropriate for [...] appropriate. These supplies include tissues, paper towels, cripple cutter and EPA-registered disinfectants (see list link at [...] be used for other purposes. Consult the rn heart's instructions for cleaning and disinfection products used. [...] used if appropriate for the surface. Follow rn heart's instructions for application and proper ventilation. Check [...] water Products with EPA-approved emerging viral pathogens [facility] iconexternal icon are expected to be effective against COVID-19 based on data for harder to kill viruses. Follow the rn heart's instructions for all cleaning and disinfection products (e.g., concentration, application method and contact time, etc.). Soft (porous) surfaces such as carpeted floor, rugs, and drapes Remove visible contamination if present and clean with appropriate cripple cutter indicated for use on these surfaces. After cleaning: Launder items as appropriate in accordance with the rn heart's instructions. If possible, launder items using the [...] items as appropriate in accordance with the rn heart's instructions. If possible, launder items using the [...] products on their website - https://www.cdc.gov/coronavirus/ 2019-ncov/community/home/cleaning-disinfection.html https://www.MetGen.Smallknot/Oznsx-Wfswmjmtjmc-Mkjsinnf-Products-List.pdf [employer] Stores with delivery and peanut picker services: [employer] [place]: Free peanut picker at locations Delivery is $12.95 a month Website - [employer] [place]: Stage Director $2.95 (1st order is free) Delivery is $14.95 Website - [employer] [place]: network support engineer is free Delivery is $5.95 [employer]: network support engineer is $4.95 Delivery is $9.95 [employer]: network support engineer is $4.95 Delivery is $9.95 [employer]: Can be ordered for delivery and peanut picker with [employer] Website - [employer]: Free deliver for first 3 orders of $35 or more Website - [employer] Will deliver from CVS, Meijer, [employer], and Target. Annual membership is $99 Monthly membership is $14 * Attachments The following attachments cannot be sent through Care Everywhere. * Preeclampsia Discharge Instructions ([place]) documented in this encounterSCleveland Clinic Marymount [id number] Obstetrics Note* Note - Sheila Harrell RN - 11/30/2022 10:37 AM EST Swabs given to patient and educated how to use and to bring to [facility], [id number] Obstetrics Note* Note - Sheila Harrell RN - 11/30/2022 10:30 AM EST Breast pump use indicated for this pt. Due to: in [facility] breast pump, supplies kit, swabs [...] LC in SCN for smaller flange sizes [facility], [id number] NotePatient: Juhi Cope Procedure Summary Date: 11/29/22 [...] all PACU criteria has been met.[facility]01-05[facility] NotePatient: Juhi Cope Procedure Summary Date: 11/29/22 [...] for questions and acknowledgement of understanding.[facility]01-05-[facility]23 Labor and delivery summary note* L&D Delivery Note - Irina Kramer DO - 11/30/2022 4:04 AM EST Images from the original note were not included. Vaginal Delivery Note Department of Obstetrics and Gynecology Patient: Juhi Cope : 1995 Date of delivery: 11/30/2022 Pre-operative Diagnosis: Juhi Mojica0 at 35w1d 1. <37 weeks 2. PreEwSF Post-operative Diagnosis: Live Born female Delivering Sign Language Interpreter & Nicker(s): Dr. Bowden; Dr. Kramer Infant Information: Information for the patient's : Francie Cope [[id number]] Information for the patient's : Francie Cope [[id number]] Description: normal Meconium Noted: No Anesthesia: epidural [...] surgery as described in the resident note. [facility], [id number] NoteEpidural Block Time Out: 11/29/2022 6:17 PM Patient location during procedure: OB Start time: 11/29/2022 6:18 PM End time: 11/29/2022 6:45 PM Reason for block: labor analgesia Staffing Performed: DOCK CLERK Resident/DOCK CLERK: Jimmie Kaur APRN - DOCK CLERK Preanesthetic Checklist Completed: patient identified, IV checked, [...] procedure well with no immediate complicationsCorewell Health [facility]01-04-2023 Plan of care note* Care Plan - Clotilde Mg RN - 11/29/2022 7:45 AM EST The patient will continue to make cervical change. Clotilde Mg RN [facility], [id number] NotePatient: Juhi Cope Procedure Information Date: 11/28/22 [...] products. patient is not NPO Additional Equipment [facility]01-03-2023 NoteLabor Progress Note Date: 11/28/2022 Time: 2:14 [...] and reassuring. CCM. Cx:/-3 FHT: Cat 1 [place]:q3-4 min A/P: 1. IOL-PreEwSF. FHT 130 baseline, with moderate variability, Accelerations present Yes, and rare late deceleration . Cervical exam unchanged. Cytotec x4 placed at this time. Patient intermittently feeling contractions. BP mild range. Cx: 1-/-3 FHP: defer FHT: Cat I [place]: a3-4min A/P: 1. IOL-PreEwSF: FHT Category [...] Cx: unchanged FHP: defer FHT: Cat I [place]: q4min A/P: 1. IOL-PreEwSF: FHT Category [...] 11/29/2022 6:17 AM Cx:1-2/60/-3 FHT: Cat I [place]:q4-5mins A/P: 1. IOL-PreEwSF: Cat I FHT [...] per protocol. CCM. Cx:defer FHT: Cat I [place]:q4-6mins A/P: 1. IOL-PreEwSF: Cat I FHT with baseline 120, moderate variability, spontaneous accelerations, and no decelerations. BP normotensive to mild range since last note time. Pitocin @ 2 cc/hr, continue to titrate per protocol. Magnesium sulfate running for seizure prophylaxis, UOP 400 ml over past 4 hours. CCM. Cx:defer FHT: Cat I [place]:q4-5mins A/P: 1. IOL-PreEwSF: Cat I FHT with baseline 135, moderate variability, spontaneous accelerations, and no decelerations. BP normotensive to mild range since last note time. Pitocin @ 6 cc/hr, continue to titrate per protocol. Magnesium sulfate running for seizure prophylaxis, UOP 600 ml over past 4 hours. Will plan for AROM soon. CCM. Cx:defer FHT: Cat I [place]:irritability A/P: 1. IOL-PreEwSF: Pit @ 8 mu/min. Patient resting comfortably and only irritability tracing on toco. BP most recently mild range. On magnesium sulfate for seizure prophylaxis. UOP adequate. Continue magnesium and continue to titrate pitocin per protocol. Plan for AROM once patient rudi more regularly. Electronically signed by Cortney Velasquez DO 11/29/2022 4:21 PM Cx:/-3 FHT: Cat 1 [place]:Not tracing A/P: 1. IOL-PreEwSF. FHT 135 baseline, with moderate variability, Accelerations present Yes, and no decelerations seen . AROM at this time for moderate amount blood tinged fluid. Pitocin at 8cc/hr. Maternal BP mild range. On Magnesium for Seizure prophylaxis. Patient with adequate urinary output. CCM. Cx: defer FHP: defer FHT: Cat II [place]: not tracing well A/P: 1. IOL-PreEwSF: FHT Category II for brief period of lates vs early deceleration (more content not included)...[facility]01-03-2023 NoteObstetrical History and Physical CHIEF COMPLAINT: [...] 34w6d Is this patient being delivered between 19y4q-35a6m weeks with an acceptable medical indication (obstetric, maternal, and/or )? NA: Not Applicable: This patient is being delivered outside of the PC-01 range (99d5x-49g6c) for reasons indicated in the medical record. [...] Not Indicated (more content not included)...[facility]01-03-2023 History and physical note* Cassie Constantino [...] 34w6d Is this patient being delivered between 15t3j-64y1f weeks with an acceptable medical indication (obstetric, maternal, and/or )? NA: Not Applicable: This patient is being delivered outside of the PC-01 range (96y1a-36f9q) for reasons indicated in the medical record. [...] plan. Cassie Constantino MD 11/28/2022, 12:48 AM [facility] [id number] History and physical note* Casise Constantino MD - 11/28/2022 12:48 AM EST [...] 34w6d Is this patient being delivered between 95t5a-12z0e weeks with an acceptable medical indication (obstetric, maternal, and/or )? NA: Not Applicable: This patient is being delivered outside of the PC-01 range (06o0b-62n3o) for reasons indicated in the medical record. [...] 11/28/2022, 12:48 AM documented in this [facility]01-02-2023 Evaluation + Plan note Extracted from:Title:OB High Risk Antepartum Visit *Author:Fredi DORSEY MD Date:11/27/22 Impression and Plan Diagnosis 34 weeks 5 days. Preeclampsia. contractions. Maternal tachycardia.. Course: Worsening, New onset headache may be a signal of worsening symptoms of preeclampsia.. Orders I discussed this case with the maternal- medicine department at [facility] in [facility], Dr. Thea Nieves, she accepted to transfer due to preeclampsia. 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 She is provided with a note for work. Additional diagnosis: Constipation, UTI and [facility]08-19-2022 Hospital Discharge instructions Follow Up Care 07/14/2022 06:07:36 With:Denny Meza Address:Unknown When:07/17/2022 07:24:48 With:DENNY RODRÍGUEZ Address: [address] [place] [address]- Business (1) When:Within 3 Day(s) [facility]08-19-2022 Hospital Discharge instructions Follow Up Care 07/14/2022 04:40:16 With:Denny Meza Address: [address], [address] [place] [address]- Business (1) When:07/17/2022 Comments:Appointment has already been scheduledCall Dr if fever>100.5 F, heavy bleedingCall for any problems.Call for severe abdominal painCall physician for heavy vaginal bleedingCall physician if symptoms worsenPlease call if you need to rescheduleReturn for contractions closer, longer, harderReturn ifruptured membranes or vaginal bleeding [facility]05-31-2022 Evaluation + Plan note Diagnostic Tests Pending * Obctz-4-Ctemvaclxyc 04/25/22 * NIGEL w/Reflex if POS 04/25/22 * Ceruloplasmin 04/25/22 * HCV Antibody RFX to Quant PCR 04/25/22 * HBV Core Ab 04/25/22 * Hepatitis B Surface Antibody 04/25/22 * Hepatitis B Surface Antigen 04/25/22 * Smooth Muscle Antibody Screen 04/25/22 [facility]05-24-2022 Evaluation note* Encounter Date Diagnosis Assessment Notes Treatment Notes Treatment Clinical Notes March, Elevated liver function tests (I CD-10 - R79.89) LABS INDICATED ABOVE [employer] Other Evaluation note* Diagnosis Pelvic pain in female- Primary Unspecified symptom associated with female genital organs [facility]* Diagnosis Chronic pelvic pain in female- Primary Unspecified symptom associated with female genital organs Constipation, unspecified constipation type High-tone pelvic floor dysfunction Other specified disorders of female genital organs Diastasis of rectus abdominis Dysmenorrhea Other specified dyspareunia documented in this encounter [facility]* Diagnosis Endometriosis- Primary Endometriosis, site unspecified Pelvic and perineal pain Unspecified symptom associated with female genital organs documented [facility]* Diagnosis Pelvic pain in female- Primary Unspecified symptom associated with female genital organs documented [facility]* Diagnosis Pelvic pain in female- Primary Unspecified symptom associated with female genital organs documented [facility]* Diagnosis High-tone pelvic floor dysfunction- Primary Other specified disorders of female genital organs Chronic pelvic pain in female Unspecified symptom associated with female genital organs documented [facility]* Diagnosis Pelvic and perineal pain Unspecified symptom associated with female genital organs documented [facility]* Diagnosis Menorrhagia with regular cycle Pelvic pain in female Unspecified symptom associated with female genital organs Uses control [facility]* Diagnosis Preeclampsia, severe, third trimester- Primary Preeclampsia, severe, third trimester [facility]* Diagnosis Pre-eclampsia, severe, delivered- Primary [facility]* Diagnosis Dysmenorrhea, unspecified [facility]* Diagnosis Well woman exam with routine gynecological exam Routine gynecological examination documented [facility]* Diagnosis Hypertension, unspecified type ([facility])- Primary Paroxysmal tachycardia, unspecified ([facility]/H[facility]) Paroxysmal tachycardia, unspecified Chronic right shoulder pain Pain in joint, shoulder region Scapular dyskinesis Lack of coordination [facility]* Diagnosis Pain in female genitalia on intercourse Dyspareunia Endometriosis Endometriosis, site unspecified documented [facility] noteNo assessment information availableCorey Hospital Ctr Work Phone: Evaluation note* Diagnosis Missed menses , unspecified gestational age Encounter for supervision of normal first in first trimester documented [facility]* Diagnosis Nonintractable episodic headache, unspecified headache type- Primary Second trimester ([facility]) state, incidental 13 weeks gestation of ([facility]) documented [facility]* Diagnosis Sinusitis, unspecified chronicity, unspecified location- Primary Second trimester ([facility]) state, incidental 17 weeks gestation of ([facility]) Screening, , for anatomic survey ([facility]) Encounter for anatomic survey documented [facility]* Diagnosis 20 weeks gestation of ([facility]) Second trimester ([facility]) state, incidental Diabetes mellitus screening Screening for diabetes mellitus documented [facility]* Diagnosis Wellness examination- Primary Hypertension, unspecified type Lipid screening Screening for lipoid disorders documented [facility]* Diagnosis Wellness examination- Primary Hypertension, unspecified type Lipid screening Screening for lipoid disorders 24 weeks gestation of ([facility]) Second trimester ([facility]) state, incidental Elevated glucose tolerance test Impaired glucose tolerance test documented [facility]* Diagnosis Gestational diabetes mellitus (GDM) in second trimester, gestational diabetes method of control unspecified documented in this encounter [facility]* Diagnosis Wellness examination- Primary Hypertension, unspecified type Lipid screening Screening for lipoid disorders 26 weeks gestation of ([facility]) Second trimester ([facility]) state, incidental induced hypertension, antepartum ([facility]) Transient hypertension of , antepartum Gestational diabetes mellitus (GDM) in second trimester, gestational diabetes method of control unspecified ([facility]) documented in this encounter [facility]* Diagnosis Wellness examination- Primary Hypertension, unspecified type Lipid screening Screening for lipoid disorders Hypertension affecting , antepartum ([facility])- Primary 27 weeks gestation of ([facility]) Second trimester ([facility]) state, incidental documented in this encounter [facility]* Diagnosis Diet controlled gestational diabetes mellitus (GDM) in second trimester- Primary Essential hypertension affecting in third trimester documented in this encounter [facility]* Diagnosis 28 weeks gestation of - Primary Insulin controlled gestational diabetes mellitus (GDM) in second trimester Essential hypertension affecting in third trimester documented in this encounter [facility]* Diagnosis Essential hypertension affecting in third trimester documented in this encounter [facility]* Diagnosis Wellness examination- Primary Hypertension, unspecified type Lipid screening Screening for lipoid disorders 29 weeks gestation of ([facility]) Third trimester ([facility]) state, incidental Hypertension affecting , antepartum ([facility]) Gestational diabetes mellitus (GDM), antepartum, gestational diabetes method of control unspecified([facility]) documented in this encounter [facility] HealthcareEvaluation note* Diagnosis Insulin controlled gestational diabetes mellitus (GDM) in third trimester- Primary Essential hypertension affecting in third trimester documented in this encounter [facility]* Diagnosis Insulin controlled gestational diabetes mellitus (GDM) in second trimester documented in this encounter [facility] SystemHistory general Narrative - Reported* Type Description Date Medical History headache Surgical HistoryappendectomySurgical Historyshoulder surgerySurgical History endometriosis [employer] Other History of Present illness Narrative* 26 [...] engaged x 1 year * working at [employer] in [place] [address] Work Phone: Hospital course Narrative No data available for this section [facility] No data available for this section [facility] HospitalInstructionsNot on filedocumented in this encounter [facility] SystemInstructionsNot on filedocumented in this encounter [facility] SystemInstructionsNot on filedocumented in this encounter [facility] SystemInstructionsNot on filedocumented in this encounter [facility] SystemInstructions* Attachments The following attachments cannot be sent through Care Everywhere. * Preeclampsia ([place]) documented in this encounterProMedidc Health SystemInstructionsNot on file documented in this encounterProMedica Health SystemInstructionsNot on file documented in this encounterProMedidc Health SystemInstructionsNot on file documented in this encounterProMarshall [facility] SystemProgress note No data available for this section [facility] HospitalReason for visit NarrativePT HERE AT REQUEST OF DR RODRÍGUEZ FOR EVALUATION AND TREATMENT OF ELVATED LIVER FUNCTION- ( DR. SAMUEL PT), LABS FROM DR RODRÍGUEZ REVIEWED BY DR [facility] Other Summary Purpose Family History Unknown Family [...] Bilateral ureterolysis Surgeon: Dr. Charlene Rodriguez Resident/Fellow/Other Nicker: Glory Palacio Anesthesia: general I.V. 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 [facility] [employer] [employer] Reason for Referral SpecialtyDiagnoses / ProceduresReferred By ContactReferred To ContactMR IMAGING Diagnoses Pelvic and perineal pain Procedures MRI FEMALE PELVIS WO/W IVCON MRI PELVIS W/O & W/CONTRAST MATERIAL Charlene Rodriguez DO [address] [address] Mr Imaging Referral IDStatusReasonStart DateExpiration DateVisits RequestedVisits [id number] Auto-Generated Referral /[id number] / ProceduresReferred By ContactReferred To [facility] Diagnoses Constipation, unspecified constipation type High-tone pelvic floor dysfunction Diastasis of rectus abdominis Dysmenorrhea Other specified dyspareunia Chronic pelvic pain in female Procedures CONSULT TO PHYSICAL THERAPY PHYSICAL THERAPY EVALUATION HIGH COMPLEX 45 MINS Jihan Downs, JAMI.RAWHIDE BONE ROLLER [address] [place] [address] [facility] [place] [address] [place] [address] Referral IDStatusReasonStart DateExpiration DateVisits RequestedVisits [id number] Review Auto-Generated Referral / Chief Complaint and Reason for Visit Chief Complaint Admit Date N94.10 N80.9 February 02, 2025 3:1 6pm Additional Source Comments INFORMATION SOURCE (unrecogn ized section and content) DATE CREATED AUTHOR 10/26/2020 [facility] DATE CREATED AUTHOR AUTHOR'S ORGANIZ ATION 11/06/2020 [facility] DATE CREATED AUTHOR AUTHOR'S ORGANIZ ATION 12/17/2020 [facility] DATE CREATED AUTHOR AUTHOR'S ORGANIZ ATION 04/21/2021 [facility] DATE CREATED AUTHOR AUTHOR'S ORGANIZ ATION 06/05/2021 [facility] DATE CREATED AUTHOR AUTHOR'S ORGANIZ ATION 10/02/2021 [facility] DATE CREATED AUTHOR AUTHOR'S ORGANIZ ATION 02/10/2022 [employer] DATE CREATED AUTHOR AUTHOR'S ORGANIZ ATION 12/05/2022 [facility] DATE CREATED AUTHOR AUTHOR'S ORGANIZ ATION 04/30/2024 [facility] DATE CREATED AUTHOR AUTHOR'S ORGANIZ ATION 02/09/2025 [facility] DATE CREATED AUTHOR AUTHOR'S ORGANIZ ATION 03/15/[address] [facility] DATE CREATED AUTHOR AUTHOR'S ORGANIZ ATION 08/03/[address] [facility] DATE CREATED AUTHOR AUTHOR'S ORGANIZ ATION 08/13/[address] [facility] DATE CREATED AUTHOR AUTHOR'S ORGANIZ ATION 08/16/[address] [facility] DATE CREATED AUTHOR AUTHOR'S ORGANIZ ATION 08/20/[address] [facility] DATE CREATED AUTHOR AUTHOR'S ORGANIZ ATION 08/21/[address] [facility] DATE CREATED AUTHOR AUTHOR'S ORGANIZ ATION 08/29/[address] [facility] DATE CREATED AUTHOR AUTHOR'S ORGANIZ ATION 09/06/2025 [facility] DATE CREATED AUTHOR AUTHOR'S ORGANIZ ATION 09/12/2025 [facility] DATE CREATED AUTHOR AUTHOR'S ORGANIZ ATION 09/18/2025 [facility] EPIC Care Team (unrecognized sect ion and content) Team MemberRelationshipSpecialtyStart DateEnd Date Denny Rodríguez MD [address] [place] [address] PCP - GeneralFamily Medicine12/03/14Team MemberRelationshipSpecialtyStart DateEnd Date Denny Rodríguez MD [address] [place] [address] PCP - Generalmily Medicine12/03/14Team MemberRelationshipSpecialtyStart DateEnd Date Denny Rodríguez MD [address] [place] [address] PCP - GeneralFamily Medicine12/03/14Team MemberRelationshipSpecialtyStart DateEnd Date Denny Rodríguez MD [address] [place] [address] PCP - Generalmi Medicine12/03/14Team MemberRelationshipSpecialtyStart DateEnd Date Denny Rodríguez MD [address] [place] [address] PCP - Generalmi Medicine12/03/14Team MemberRelationshipSpecialtyStart DateEnd Date Denny Rodríguez MD [address] [place] [address] PCP - Generalmi Medicine12/03/14Team MemberRelationshipSpecialtyStart DateEnd Date Denny Rodríguez MD [address] [place] [address] PCP - GeneralFamily Medicine12/03/14Team MemberRelationshipSpecialtyStart DateEnd Date Denny Rodríguez MD [address] [place] [address] PCP - GeneralFamily Medicine12/03/14Team MemberRelationshipSpecialtyStart DateEnd Date Denny Rodríguez MD [address] [place] [address] PCP - GeneralFamily Medicine12/03/14Team MemberRelationshipSpecialtyStart DateEnd Date Denny Rodríguez MD [address] [place] [address] PCP - Generalmily Medicine12/03/14Team MemberRelationshipSpecialtyStart DateEnd Date Denny Rodríguez MD [address] [place] [address] PCP - On[facility] Pqndjkwvnh46/1/21 Denny Rodríguez MD [address] [place] [address] PCP - GeneralFamily Medicine04/10/23 Denny Rodríguez MD [address] [place] [address] PCP - [facility]02/24/23 Zenobia [place] NP [address] [place] [address] Nurse PractitionerFamily Rrqxshsi36/10/23 Trista Thao NP [address] [place] [address] Nurse PractitionerPulmonary Tasvltf01/10/23Team MemberRelationshipSpecialtyStart DateEnd Date Denny Rodríguez MD [address] [place], [id number] [facility] - [facility]12/03/14Team MemberRelationshipSpecialtyStart DateEnd Date Denny Rodríguez MD [address] [place] [address] PCP - Generalmily Medicine12/03/14Team MemberRelationshipSpecialtyStart DateEnd Date Denny Rodríguez MD [address] [place], [facility] PCP - Onycha Xvrcifkpim70/1/21 Denny Rodríguez MD [address] [place] [address] PCP - [facility]02/24/23 Eliceo Beltran DO [address] [place] [address] PCP - Generalmily Medicine02/14/24Team MemberRelationshipSpecialtyStart DateEnd Date Denny Rodríguez MD [address] [place] [address] PCP - Onycha Hckoxfngru34/1/21 Denny Rodríguez MD [address] [place] [address] PCP - [facility]02/24/23 Eliceo Beltran DO [address] [place] [address] PCP - [facility]02/14/24Team MemberRelationshipSpecialtyStart DateEnd Denny Rodríguez MD [address] [place] [address] PCP - Onycha Omywysoqpo02/1/21 Denny Rodríguez MD [address] [place] [address] PCP - [facility]02/24/23 Eliceo Beltran DO [address] [place] [address] PCP - [facility]02/14/24Te MemberRelationshipSpecialtyStart DateEnd Date Denny Rodríguez MD [address] [place] [address] PCP - Onycha Eghzkktmpi59/1/21 Denny Rodríguez MD [address] [place] [address] PCP - [facility]02/24/23 Eliceo Beltran DO [address] [place] [address] PCP - [facility]02/14/24Team MemberRelationshipSpecialtyStart DateEnd Date Denny Rodríguez MD [address] [place] [address] [facility] Denny Rodríguez MD [address] [place] [address] PCP - [facility]02/24/23 Eliceo Beltran, DO [address] [place] [address] PCP - [facility]02/14/24Te MemberRelationshipSpecialtyStart DateEnd Date Denny Rodríguez MD [address] [place] [address] PCP - [facility]09/26/21 Eliceo Beltran DO [address] [place] [address] PCP - [facility]02/14/24Team MemberRelationshipSpecialtyStart DateEnd Date Eliceo Beltran DO [address] [place] [address] PCP - [facility]02/14/24Team MemberRelationshipSpecialtyStart DateEnd Date Eliceo Beltran, DO [address] [place] [address] PCP - [facility]02/14/24 Team Status: Active Member Role Status Dates Denny Rodríguez MD Primary Care Provider Active Team Status: Inactive Member Role Status Dates Denny Rodríguez MD Primary Care Provider Active S tart: February 02, 2025 End: February 02orepearl Pop DOAttending ProviderActiveStart: February 02, 2025 End: February 02, 2025Team MemberRelationshipSpecialtyStart DateEnd Date Eliceo Beltran DO [address] [place] [address] PCP - [facility]02/14/24 Eliceo Beltran DO [address] [place] [address] PCP - [facility] [employer] [employer]07/27/2412Team MemberRelationshipSpecialty Start DateEnd Date Eliceo Beltran DO [address] [place] [address] PCP - [facility]02/14/24 Eliceo Beltran DO [address] [place] [address] PCP - [facility] [employer]07/27/2412Team MemberRelationshipSpecialty Start DateEnd Date Eliceo Beltran DO [address] [place] [address] PCP - [facility]02/14/24 Eliceo Beltran DO [address] [place] [address] PCP - [facility] [employer]07/27/2412Team MemberRelationshipSpecialty Start DateEnd Date Eliceo Beltran DO [address] [place] [address] PCP - [facility]02/14/24 Eliceo Beltran, DO [address] [place] [address] PCP - [facility] [employer]07/27/2412Team MemberRelationshipSpecialty Start DateEnd Date Eliceo Beltran DO [address] [place] [address] PCP - [facility]02/14/24 Eliceo Beltran, DO [address] [place] [address] PCP - [facility] [employer]07/27/2412Team MemberRelationshipSpecialty Start DateEnd Date Eliceo Beltran DO [address] [place] [address] PCP - [facility]02/14/24 Eliceo Beltran, [address] [place] [address] PCP - [facility] [employer]07/27/2412Team MemberRelationshipSpecialty Start DateEnd Date Eliceo Beltran DO [address] [place] [address] PCP - [facility]02/14/24 Eliceo Beltran, [address] [place] [address] PCP - [facility] [employer]07/27/2412Team MemberRelationshipSpecialty Start DateEnd Date Eliceo Beltran DO [address] [place] [address] PCP - GeneralFamily Medicine02/14/24 Eliceo Beltran, DO [address] [place] [address] PCP - [facility] [employer]07/27/2412Team MemberRelationshipSpecialty Start DateEnd Date Eliceo Beltran, DO [address] [place] [address] [facility] Eliceo Beltran, DO [address] [place] [address] PCP - [facility] [employer]07/27/2412Team MemberRelationshipSpecialty Start DateEnd Date Eliceo Beltran, DO [address] [place] [address] PCP - [facility]02/14/24 Eliceo Beltran, DO [address] [place] [address] PCP - [facility] [employer]07/27/2412Team MemberRelationshipSpecialty Start DateEnd Date Eliceo Beltran, DO [address] [place] [address] [facility] Eliceo Beltran, DO [address] [place] [address] PCP - [facility] [employer]07/27/2412Team MemberRelationshipSpecialty Start DateEnd Date Denny Rodríguez MD [address] [place] [address] [facility] - [facility]12/02/18Team MemberRelationshipSpecialtyStart DateEnd Date Denny Rodríguez MD [address] [place] [address] PCP - [facility]12/02/18Team MemberRelationshipSpecialtyStart DateEnd Date Eliceo Beltran DO [address] [place] [address] PCP - [facility]02/14/24 Eliceo Beltran DO [address] [place] [address] PCP - [facility] [employer]07/27/2412Team MemberRelationshipSpecialty Start DateEnd Date Eliceo Beltran DO [address] [place] [address] PCP - [facility]02/14/24 Eliceo Beltran DO [address] [place] [address] PCP - [facility] [employer]07/27/2412Team MemberRelationshipSpecialty Start DateEnd Date Eliceo Beltran DO [address] [place] [address] PCP - Generalmi Medicine02/14/24 Eliceo Beltran DO [address] [place] [address] PCP - [facility] [employer]07/27/2412Team MemberRelationshipSpecialty Start DateEnd Date Eliceo Beltran DO [address] [place] [address] [facility]/24 Eliceo Beltran, DO [address] [place] [address] PCP - [facility] [employer]07/27/2412Team MemberRelationshipSpecialty Start DateEnd Date Denny Rodríguez MD [address] [place] [address] PCP - [facility] Medicine12/02/18Team MemberRelationshipSpecialtyStart DateEnd Date Eliceo Beltran, DO [address] [place] [address] PCP - [facility]02/14/24 Eliceo Beltran, DO [address] [place] [address] PCP - [facility] [employer]07/27/2412Team MemberRelationshipSpecialty Start DateEnd Date Eliceo Beltran, [address] [place] [address] [facility]/14/24 Eliceo Beltran DO [address] [place] [address] PCP - [facility] [employer]07/27/2412 MemberRelationshipSpecialty Start DateEnd Date Denny Rodríguez MD [address] [place] [address] PCP - Generalmily Medicine12/02/18 MemberRelationshipSpecialtyStart DateEnd Date Denny Rodríguez MD [address] [place] [address] PCP - Generalmily Medicine12/02/18 MemberRelationshipSpecialtyStart DateEnd Date Eliceo Beltran DO [address] [place] [address] [facility]/14/24 Eliceo Beltran DO [address] [place] [address] PCP - [facility] [employer]07/27/2412 MemberRelationshipSpecialty Start DateEnd Date Eliceo Beltran DO [address] [place] [address] PCP - [facility]02/14/24 Eliceo Beltran, DO [address] [place] [address] PCP - [facility] [employer]07/27/2412 MemberRelationshipSpecialty Start DateEnd Date Denny Rodríguez MD [address] [place] [address] PCP - GeneralFamily Medicine12/02/18Team MemberRelationshipSpecialtyStart DateEnd Date Denny Rodríguez MD [address] [place] [address] PCP - GeneralFamily Medicine12/02/18Team MemberRelationshipSpecialtyStart DateEnd Date Denny Rodríguez MD [address] [place], [facility] PCP - Onycha Anavhffnzg02/1/ Denny Rodríguez MD [address] [place] [address] PCP - GeneralFamily Medicine Denny Rodríguez MD [address] [place], [facility]70 PCP - [facility]/ Eliceo Beltran DO [address] [place] [facility] PCP - GeneralFamily Medicine02/14/24 Eliceo Beltran DO [address] [place], [facility] PCP - Medical [facility] [employer]07/27/2412 Zenobia [facility] NP [address] [place] [address] Nurse PractitionerFamily Ystlrtuk17/10/235 Trista Thao NP [address] [place] [address] Nurse PractitionerPulmonary Wlebklv67/10/235 Source Comments (unrecognize d section and content) In the event this informatio n is protected by the Federal Confidentiality of Alcohol and Drug Abuse Patient Records regulations: The Federal rules restrict any use of the information to criminally investigate or prosecute any alcohol or drug abuse patient.[facility]In the event this information is protected by the Federal Confidentiality of Alcohol and Drug Abuse Patient Records regulations: The Federal rules restrict any use of the information to criminally investigate or prosecute any alcohol or drug abuse patient.[facility] HospitalIn the event this information is protected by the Federal Confidentiality of Alcohol and Drug Abuse Patient Records regulations: The Federal rules restrict any use of the information to criminally investigate or prosecute any alcohol or drug abuse patient.[facility] HospitalIn the event this information is protected by the Federal Confidentiality of Alcohol and Drug Abuse Patient Records regulations: The Federal rules restrict any use of the information to criminally investigate or prosecute any alcohol or drug abuse patient.[facility] HospitalIn the event this information is protected by the Federal Confidentiality of Alcohol and Drug Abuse Patient Records regulations: The Federal rules restrict any use of the information to criminally investigate or prosecute any alcohol or drug abuse patient.[facility] HospitalIn the event this information is protected by the Federal Confidentiality of Alcohol and Drug Abuse Patient Records regulations: The Federal rules restrict any use of the information to criminally investigate or prosecute any alcohol or drug abuse patient.[facility] HospitalIn the event this information is protected by the Federal Confidentiality of Alcohol and Drug Abuse Patient Records regulations: The Federal rules restrict any use of the information to criminally investigate or prosecute any alcohol or drug abuse patient.[facility] HospitalIn the event this information is protected by the Federal Confidentiality of Alcohol and Drug Abuse Patient Records regulations: The Federal rules restrict any use of the information to criminally investigate or prosecute any alcohol or drug abuse patient.[facility] HospitalIn the event this information is protected by the Federal Confidentiality of Alcohol and Drug Abuse Patient Records regulations: The Federal rules restrict any use of the information to criminally investigate or prosecute any alcohol or drug abuse patient.[facility] HospitalIn the event this information is protected by the Federal Confidentiality of Alcohol and Drug Abuse Patient Records regulations: The Federal rules restrict any use of the information to criminally investigate or prosecute any alcohol or drug abuse patient.[facility] HospitalIn the event this information is protected by the Federal Confidentiality of Alcohol and Drug Abuse Patient Records regulations: The Federal rules restrict any use of the information to criminally investigate or prosecute any alcohol or drug abuse patient.[facility] HospitalIn the event this information is protected by the Federal Confidentiality of Alcohol and Drug Abuse Patient Records regulations: The Federal rules restrict any use of the information to criminally investigate or prosecute any alcohol or drug abuse patient.[facility] HospitalIn the event this information is protected by the Federal Confidentiality of Alcohol and Drug Abuse Patient Records regulations: The Federal rules restrict any use of the information to criminally investigate or prosecute any alcohol or drug abuse patient.[facility] HospitalIn the event this information is protected by the Federal Confidentiality of Alcohol and Drug Abuse Patient Records regulations: The Federal rules restrict any use of the information to criminally investigate or prosecute any alcohol or drug abuse patient.[facility] HospitalIn the event this information is protected by the Federal Confidentiality of Alcohol and Drug Abuse Patient Records regulations: The Federal rules restrict any use of the information to criminally investigate or prosecute any alcohol or drug abuse patient.[facility] Reason for Visit (unrecogniz ed section and content) ReasonCommentsMenstrual ProblemReasonCommentsVaginal BleedingReasonComments EndometriosisReasonCommentsInsurance AuthorizationOrilissaReasonCommentsPelvic PainSpecialtyDiagnoses / ProceduresReferred By ContactReferred To ContactOB/WIRE ROPE SALES REPRESENTATIVE / GYNECOLOGY Diagnoses Painful menstrual periods Painful Periods Procedures OFFICE/OUTPATIENT ESTABLISHED SF MDM 10-19 MIN EST WHI PATIENT Jihan Downs, FOOD SERVICE STEWARD.RAWHIDE BONE ROLLER [address] [place] [id number] Jihan Downs, FOOD SERVICE STEWARD.RAWHIDE BONE ROLLER [address] [place] [address] Referral IDStatusReasonStart DateExpiration DateVisits RequestedVisits [id number] MRI SpecialtyDiagnoses / ProceduresReferred By ContactReferred To ContactMR IMAGING Diagnoses Pelvic and perineal pain Procedures MRI FEMALE PELVIS WO/W IVCON MRI PELVIS W/O & W/CONTRAST MATERIAL Charlene Rodriguez, [address] [facility] [address] [place] [address] Mr Imaging [place] [address] Referral IDStatusReasonStart DateExpiration DateVisits RequestedVisits [id number] Auto-Generated Referral //[id number] DateCommentsRefill Yktjxao24/07/2024Reason CommentsMenorrhagiaCramping with bleedingReasonCommentsSurgery Cancelled SpecialtyDiagnoses / ProceduresReferred By ContactReferred To Contact Diagnoses Preeclampsia, severe, third trimester Procedures O14.13 - Preeclampsia, severe, third trimester Kathe Ryder, [address] [place] [address] [facility] [address] [place] [address] Referral IDStatusReasonStart DateExpiration DateVisits RequestedVisits [id number] Pressure CheckReasonCommentsDysmenorrhea ReasonCommentsWell Women VisitReasonCommentsShoulder PainReasonCommentsPainful IntercourseReasonCommentsAmenorrheaReasonCommentsRoutine VisitReason CommentsGestational DiabetesSpecialtyDiagnoses / ProceduresReferred By Contact Referred To ContactMaternal and Medicine Diagnoses Gestational diabetes mellitus (GDM) in second trimester, gestational diabetes method of control unspecified Nathan Pop, DO [address] [place] [address] Phone: tel: fax: Maternal- Medicine at [facility] [address] [place] [address] Phone: tel: fax: Referral IDStatusReasonStart DateExpiration DateVisits RequestedVisits [id number] Review Specialty Services Required /[id number] consult Scheduled Active and Recently Administ ered [...] mcg (COMPLETED) 1,000 mcg, Rectal, Once, On Constance 11/30/22 at 0315, For 1 dose * 0302 (Given - Provider: Chelsi Carlson RN - Comment: given emergently for post hemm) NIFEdipine XL (Procardia XL) 24 hr tablet 30 mg 30 mg, Oral, Daily, First dose on Sun11/28/22 at 0115, Do not crush, chew, or split. * 0808 (Given - Provider: Alejandra Arcos RN) * 0803 (Given - Provider: Alejandra Arcos, RN) * 0942 (Given - Provider: Anna Booth RN) Medication Order11/30///05/2023 magnesium sulfate 20 GM/500ML infusion () 2,000 mg/hr (50 mL/hr), IntraVENous, Continuous, Starting on Sun11/28/22 at 0100, For 3 days 2 hours * 0536 (New Bag - Provider: Chelsi Carlson RN) * 1502 (New Bag - Provider: Alejandra Arcos RN) * 0112 (New Bag - Provider: [...] every 2-3 minutes with cervical changes or [place] units (MVU) greater than 200 in a [...] RN) * 1204 (Given - Provider: Alejandra Arcos, DIALLO) * 1931 (Given - Provider: Lani Fraga, DIALLO) * 0551 (Given - Provider: Lani Fraga RN) * 1221 (Given - Provider: Alejandra Arcos, DIALLO) * 2327 (Given - Provider: Lida Mark RN) * 0942 (Given - Provider: Anna Booth, DIALLO) * 1601 (Given - Provider: Anna Booth [...] RN) * 0942 (Given - Provider: Anna Booth, DIALLO) * 1601 (Given - Provider: Anna Booth, [...] BE BASED ON THE PRIMARY CLINICAL RECORDS. [facility]. provides no warranty or guarantee of the accuracy or completeness of information in this document.
--- OUTSIDE RECORDS SUMMARY | 2025-09-26 10:59 | XMS_ITS | Encounter Summary ---
Author Organization [facility] Address [address] [place] [address] Care Team Providers Care Director Of Infection Prevention Name Role Phone Eliceo Beltran DO Primary Care Provider [phone] CharlottecarolEliceo Unavailable [phone] Encounter Details DateTypeDepartmentCare Team (Latest Contact Info)Faepemrmvfp33/22/2025amboo flowsheet [facility] [place] [facility] [address] [place] [address] Nathan Pop DO [address] [facility] [facility] [address] [place], [facility] Social History Tobacco UseTypesPacks/DayYears UsedDateSmoking Tobacco: NeverSmokeless Tobacco: NeverAlcohol UseStandard Drinks/WeekCommentsNever0 (1 standard drink = 0.6 oz pure alcohol)caffeine: 1-2 cups per day, coffee and [id number] Health Literacy AnswerDate RecordedHow often do you [...] relatives?Once a week12/29/2024How often do you attend lutheran or cheondoism services?Patient wuouyhcz17/03/2025Do you belong to any clubs or organizations such as lutheran groups, unions, HomeSav or athletic leodan ups, or school groups?No12/29/2024How [...] RecordedPatient Health Questionnaire-2 Score0 07/30/2025[facility] [place] [facility] - Occupational Stress QuestionnaireAnswerDate RecordedDo you feel stress - tense, restless, nervous, or anxious, or unable to sleep at night because yourmind is troubled all the time - these days?Only a iprqkl5112/29/2024Exercise Vital SignAnswerDate Recorded On average, how many [...] steady place to sleep or slept in located within [facility] (including now)?No09/19/2023Housing Stability Vital SignAnswerDate [...] have received?High school /29/2023 Estimated Date of BeuaogdmTbczyhdhTqi97/03/2026ased on last menstrual period of 02/21/2025Sex and Gender InformationValueDate RecordedSex Assigned at BirthNot on fileLegal VcjZnsqon45/15/2023 7:18 PM EDTGender IdentityNot on file Sexual OrientationNot on 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 [facility] [address] [place] [address] documented as of this encounter Visit Diagnoses Not on filedocumented in this encounter Care Teams Team MemberRelationshipSpecialtyStart DateEnd Date Eliceo Beltran DO [address] [facility] [address] [place] [address] PCP - GeneralFamily Medicine02/14/24 Eliceo Beltran DO [address] [address] [place] [address] PCP - Medical [place] [employer]07/27/2412documented as of this encounter
--- OUTSIDE RECORDS SUMMARY | 2025-09-26 10:59 | XMS_ITS | Encounter Summary ---
Author Organization [facility] tem Address [id number] [address] [place] [address] Care Team Providers Care Retail Salesperson Name Role Phone Cruz Rodríguez MD Primary Care Provider [phone] Encounter Details DateTypeDepartmentCare Team (Latest Contact Info)Hgtauygbgsv43/27/2025Remote Patient Monitoring Maternal- Medicine at [facility] [address] [place] [address] Kayleigh Rizzo, PAAlbinC [address] [address] Insulin controlled gestational diabetes mellitus (GDM) in [...] or more drinks on one occasion?Never09/10/2025hildcareAnswer Date KnffmrdhDeidsllisFewskdw44/13/2019EmploymentAnswerDate RecordedEmployment Jlucoko8805/08/2019Hunger ScreeningAnswerDate RecordedWithin the past 12 months we worried whether our food would run out before we got money to buy more.Never True09/10/2025Within the past 12 months the food we bought just didn't last and we didn't have money to get more.Never True09/10/2025Purpose - LifeAnswerDate RecordedPurpose and direction in jjvnNewpewg25/11/2021Estimated Date of NbvmiqcfLbsknxecOva04/03/2026Based on last menstrual period of 02/21/2025 (Exact Date)Sex and Gender InformationValueDate RecordedSex Assigned at BirthNot on fileLegal PuwCblzux37/07/2019 2:55 PM ESTGender IdentityNot on fileSexual OrientationNot on filedocumented as of this encounter Progress Notes * Kayleigh Rizzo PA-C - 09/21/2025 12:28 PM EDT Insulin dose increased due to elevated fastings. Kayleigh Rizzo PA-C 09/21/25 1229 documented in this encounter Plan of Treatment DateTypeDepartmentCare Team (Latest Contact Info)Zscdagwmwls44/10/2025 3:00 PM ESTTelemedicine Maternal- Medicine at [facility] [address] [place] [address] Kayleigh Rizzo PA-C [address] [address] 10/08/2025 8:00 AM ESTAppointment Maternal Medicine [place] [address] [facility] [address] [place] [address] documented as of this encounter Visit Diagnoses Diagnosis Insulin controlled gestational diabetes mellitus (GDM) in third trimester- Primary Essential hypertension affecting in third trimester documented in this encounter Care Teams Team MemberRelationshipSpecialtyStart DateEnd Date Cruz Rodríguez MD [address] [place] [address] PCP - GeneralFamily Medicine12/02/18documented as of this encounter
--- OUTSIDE RECORDS SUMMARY | 2025-09-26 10:59 | XMS_ITS | Patient Health Record ---
Author Organization [facility] Address [address] [place] [address] Care Team Providers Care Pot Filler Name Role Phone Cruz Rodríguez Primary Care [...] Quad PFS (0.5mL Admin) 18 y/o & oiiwfNvylvfj64/30/5430Wfedtbgc6468 Fluzone Quad PFS (0.5mL Admin) 6 months & ztkznHvbxvsq21/17/8922Jyrgwdqt0975 Fluzone, 6mo & older, Quad MDV (0.5mL Admin)Mpxkrbb2907/16/20237667Dvovcoya0033 Fluzone, 6mo & older, Quad PFS (0.5mL Admin)Tmrbuvb62/18/2023Contraindications z2023 Fluzone, 6mo & older, Quad PFS (0.5mL Admin)Opkddur95/20/2024Refused Social History Tobacco Use: Social History Observation [...] Status W/U Status Risk Notes Problem Tachycardia (7950756) Tachycardia (R00.0) ActiveconfirmedProblemObesity (212306282)Obesity (BMI 30-39.9) (E66.9)Active confirmed Plan Of Treatment No Information Insurance Providers Payer Name Payer Address Payer Phone Subscriber Number Group Number Insured Name Patient Relationship to Insured Coverage Start Date Coverage End Date [facility] [address] [place] [address] [id number] Driss Woodruff Self - patient is the insured Medical [place] [facility] [address] [place] [phone] [id number], AlexisSelf - patient is the insured Medical (General) History Medical History History ICD Code Tachycardia R00.0 Surgical History Surgery Date(Month/Year) right shoulder surgery endometriosisappendectomyHospitalization History Reason Date(Month/Year) surgeries childbirth
--- OUTSIDE RECORDS SUMMARY | 2025-09-26 10:59 | XMS_ITS | Encounter Summary ---
Author Organization [facility] tem Address [facility] [address] [place] [address] Care Team Providers Care Infertility Medical Assistant Name Role Phone Cruz Rodríguez MD Primary Care Provider [phone] Encounter Details DateTypeDepartmentCare Team (Latest Contact Info)Bwxezthwrku93/27/2025Telephone Maternal- Medicine at [facility] [address] [place] [phone] Verito Gudino, LD [address] [place] [address] Social History Tobacco UseTypesPacks/DayYears UsedDateSmoking Tobacco: NeverSmokeless Tobacco: NeverAlcohol UseStandard Drinks/WeekCommentsNo0 (1 standard drink = 0.6 oz pure alcohol)AUDIT-CAnswerDate RecordedQ1: How often do you have a drink containing alcohol?Never09/10/2025Q2: How many drinks containing alcohol do you have on a typical day when you are drinking?Patient does not drink09/10/2025Q3: How often do you have six or more drinks on one occasion?Never5ChildcareAnswer Date GxuigoikAjfyieauuCpunpav77/13/2019EmploymentAnswerDate RecordedEmployment Epxeflo0805/08/2019Hunger ScreeningAnswerDate RecordedWithin the past 12 months we worried whether our food would run out before we got money to buy more.Never True09/10/2025Within the past 12 months the food we bought just didn't last and we didn't have money to get more.Never True09/10/2025Purpose - LifeAnswerDate RecordedPurpose and direction in yxjsIlkhiuc91/11/2021Estimated Date of XzgwxqjyUzwwflbyVve37/03/2026Based on last menstrual period of 02/21/2025 (Exact Date)Sex and Gender InformationValueDate RecordedSex Assigned at BirthNot on fileLegal DlbNpaqah23/07/2019 2:55 PM ESTGender IdentityNot on fileSexual OrientationNot [...] Plan of Treatment DateTypeDepartmentCare Team (Latest Contact Info)Jrlghvqljdx97/10/2025 3:00 PM ESTTelemedicine Maternal- Medicine at [facility] [address] [place] [address] Kayleigh Rizzo PA-C [address] [facility] [address] [address] 10/08/2025 8:00 AM ESTAppointment Maternal Medicine [place] [address] [facility] [address] [place] [address] documented as of this encounter Visit Diagnoses Diagnosis Insulin controlled gestational diabetes mellitus (GDM) in second trimester documented in this encounter Care Teams Team MemberRelationshipSpecialtyStart DateEnd Date Cruz Rodríguez MD [address] [place] [address] PCP - GeneralFamily Medicine12/02/18documented as of this encounter
--- OUTSIDE RECORDS SUMMARY | 2025-09-26 10:59 | XMS_ITS | Encounter Summary ---
Author Organization [facility] Address [address] [place] [address] Care Team Providers Care Certified Medical Records Coder Name Role Phone Cruz Rodríguez MD Unavailable + [phone] Cruz Rodríguez MD Primary Care Provider [phone] Cruz Rodríguez MD Unavailable + [phone] [place] ADVERTISING WRITER Unavailable Trista Thao ADVERTISING WRITER Unavailable [phone] Eliceo Beltran DO Primary Care Provider [phone] Eliceo Beltran DO Unavailable [phone] Encounter Details DateTypeDepartmentCare Team (Latest Contact Info)Tznzoeiyrql05/20/2024Clinisync Result Encounter [facility] External Department Unsolicited Jony Pop, DO [address] [place] [address] Social History Tobacco UseTypesPacks/DayYears UsedDateSmoking Tobacco: NeverSmokeless Tobacco: NeverAlcohol UseStandard Drinks/WeekCommentsNever0 (1 standard drink = 0.6 oz pure alcohol)caffeine: 1-2 cups per day, coffee and mwiZ8934 Health Literacy AnswerDate RecordedHow often do you [...] relatives?Once a week12/29/2024How often do you attend christian or rastafarian services?Patient yejkucrk98/03/2025Do you belong to any clubs or organizations such as christian groups, unions, [employer] or athletic leodan ups, or school groups?No12/29/2024How often do you attend meetings of the clubs or organizations you belong to?Patient ulglkzbu06/03/2025re you , , , , never , [...] hard at all12/29/2024PHQ-2AnswerDate RecordedPatient Health Questionnaire-2 Score0 07/30/2025[facility] [place] of Occupational Health - Occupational Stress QuestionnaireAnswerDate RecordedDo you feel stress - tense, restless, nervous, or anxious, or unable to sleep at night because yourmind is troubled all the time - these days?Only a ewalic0712/29/2024Exercise Vital SignAnswerDate Recorded On average, how many [...] steady place to sleep or slept in [facility] (including now)?No09/19/2023Housing Stability Vital SignAnswerDate RecordedIn the last 12 months, was there a time when you were not able to pay the mortgage or rent on time?No12/29/2024Number of Times Moved in the Last YearNot on file12/29/2024t any time in the past 12 months, were you homeless or living in a prison (including now)?No12/29/2024 EducationAnswerDate RecordedWhat is the highest level of school you have completed or the highest degree you have received?High school kdevrodp68/29/2023 CommentsUnknownSex and Gender InformationValueDate RecordedSex Assigned at BirthNot on fileLegal LunVwveaz91/15/2023 7:18 PM EDTGender IdentityNot on fileSexual OrientationNot on 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 End Date CashierNot on fileNot on fileNot on filedocumented as of this encounter Functional Status * AUDIT-C ScoreAnswerDate of NrtbzuaatpQgtqxx270/03/2025 10:25 PM ESTChristine, Generic * Q1: How often do you have a drink containing alcohol?AnswerDate of Assessment AuthorMonthly or less12/29/2024 10:25 PM ESTNasrachart, Generic * Q2: How many drinks containing alcohol do you have on a typical day when you are drinking?AnswerDate of AssessmentAuthorPatient does not drink12/29/2024 10:25 PM ESTChristine, Generic * Q3: How often do you have six or more drinks on one occasion?AnswerDate of UrnlkowuuuEvaihjSkfdn97/03/2025 10:25 PM ESTChristine, Generic * Over the past 2 weeks, how often have you been bothered by any of the following problems?QuestionAnswerDate of AssessmentAuthorLittle interest or pleasure in doing thingsNot at all07/30/2025 3:36 PM EDBill Wallis LPNFeeling down, depressed, or hopelessNot at all07/30/2025 3:36 PM EDT Bill Gould LPNPatient Health Questionnaire-2 Mzlpb364 3:36 PM Bill Locke LPN documented as of this encounter Plan of Treatment DateTypeDepartmentCare Team (Latest Contact Info)Bxptynamiuq06/05/2025 3:00 PM ESTRoutine [facility] [place] [facility] [address] [place] [phone] Jony Pop DO [address] [facility] [place] [address] documented as of this encounter Procedures Procedure NamePriorityDate/TimeAssociated DiagnosisCommentsECG 12-LEAD02/13/2024 2:55 PM EDT documented in this encounter Results * ECG 12-LEAD (02/13/2024 2:55 PM EDT)Anatomical RegionLateralityModalityOther Specimen (Source)Anatomical Location / LateralityCollection Method / Volume Collection TimeReceived Time02/13/2024 2:55 PM EDT Narrative 02/14/2024 6:50 AM EDT The [facility] ?[address] ? [place], [facility] ? Electrocardiograph Report ? Signed ? Patient: DRISS COPE ?MR#: [id number] ?? : 1995 ?Acct:[id number] ?? Age/Sex: 28 / F ?ADM Date: 02/13/24 ?? Loc: PST ? Attending Dr: Jony Pop D.O. ? Ordering Physician: Jony Pop D.O. ?? Date of Service: 02/13/24 ?? Procedure(s): ECG 12 lead ?? Accession Number(s): [id number] ? cc: ?[facility] ? Test Date: ?2024-02-13 ?? Pat Name: ? DRISS BARBERBOYD ? Department: ? Room: ? - ?? Gender: ? Female ? 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 : ?1995 ? Requested By: JONY POP ?? Order Number: [id number] ?Reading MD: ?? RAMSEY ??BALL ? Measurements ?? Intervals ?[place] ? Rate: ? 86 ? P: ?31 ?? [place]: ? 133 ?QRS: ?20 ?? QRSD: ? 89 ? T: ?47 ?? QT: ? 374 ? QTc: ?449 ? Interpretive Statements ?? SINUS RHYTHM ?? No previous ECG available for comparison ?? Electronically Signed On 02-14-2024 6:50:27 EDT by RAMSEY ??BALL ? Dictated By: ?Ball,Ramsey D.O. ? Signed By: ?02/14/24 0650 ? DD/ 1455 ? TD/TT: ? Stadium Manager: Procedure Note Radiology, Radiologist, MD - 02/14/2024 [place] [address] Electrocardiograph Report Signed Patient: DRISS COPE [facility]#: [id number] : 1995Acct:[id number] Age/Sex: 28 / FADM Date: 02/13/24 Loc: PST Attending Dr: Jony Pop D.O. Ordering Physician: Jony Pop D.O. Date of Service: 02/13/24 Procedure(s): ECG 12 lead Accession Number(s): [id number] cc: [facility] Test Date: 2024-02-13 Pat Name: DRISS COPE Department: Room: - Gender: Female Ambulance Mechanic: : 1995 Requested By: JONY POP Order Number: [id number] Reading MD: RAMSEY ORDAZ Measurements Intervals [place] Rate: 86 P: 31 NY: 133 QRS: 20 QRSD: 89 T: 47 QT: 374 QTc: 449 Interpretive Statements SINUS RHYTHM No previous ECG available for comparison Electronically Signed On 02-14-2024 6:50:27 EDT by RAMSEY ORDAZ Dictated By: Ramsey Ordaz D.O. Signed By:02/14/24 0650 DD/ 1455 TD/TT: Stadium Manager: Authorizing ProviderResult TypeResult StatusCorey Kiesha DOCLINISYNC IMAGINGFinal Result documented in this encounter Visit Diagnoses Not on filedocumented in this encounter Care Teams Team MemberRelationshipSpecialtyStart DateEnd Date Cruz Rodríguez MD [address] [place] [address] PCP - [facility]09/26/2112 Cruz Rodríguez MD [address] [place] [address] PCP - [facility] Cruz Rodríguez MD [address] [place] [address] PCP - [facility]/ Eliceo Beltran DO [address] [place] [address] [facility] - [facility]24 Eliceo Beltran DO [address] [place] [address] PCP - Medical [place] [employer]07/27/2412 [place] NP [address] [place] [address] Nurse PractitionerFamily Vzbdzsxh81/10/235 Trista Thao NP [address] [place] [address] Nurse PractitionerPulmonary Zsjjjhm42/10/235documented as of this encounter
--- OUTSIDE RECORDS SUMMARY | 2025-09-26 11:00 | XMS_ITS | Encounter Summary ---
Author Organization [facility] Address [address] [place] [address] Care Team Providers Care Community Director Name Role Phone Eliceo Beltran DO Primary Care Provider [phone] CharlottegeovaniEliceo kauffman Unavailable [phone] Encounter Details DateTypeDepartmentCare Team (Latest Contact Info)Qrdzzvkqbgv46/25/2025Clinisync Result Encounter [facility] External Department Unsolicited Steph Keane, DEVYN [address] [facility] [place] [address] Social History Tobacco UseTypesPacks/DayYears UsedDateSmoking Tobacco: NeverSmokeless Tobacco: NeverAlcohol UseStandard Drinks/WeekCommentsNever0 (1 standard drink = 0.6 oz pure alcohol)caffeine: 1-2 cups per day, coffee and twhS7834 Health Literacy AnswerDate RecordedHow often do you [...] relatives?Once a week12/29/2024How often do you attend sikhism or yazidi services?Patient ouuiiwnh93/03/2025Do you belong to any clubs or organizations such as sikhism groups, unions, [employer] or athletic leodan ups, or school groups?No12/29/2024How often do you attend meetings of the clubs or organizations you belong to?Patient fupxhcws58/03/2025re you , , , , never , [...] hard at all12/29/2024PHQ-2AnswerDate RecordedPatient Health Questionnaire-2 Score0 07/30/2025[facility] [place] of Occupational Health - Occupational Stress QuestionnaireAnswerDate RecordedDo you feel stress - tense, restless, nervous, or anxious, or unable to sleep at night because yourmind is troubled all the time - these days?Only a vajadh4612/29/2024Exercise Vital SignAnswerDate Recorded On average, how many [...] steady place to sleep or slept in [facility] (including now)?No09/19/2023Housing Stability Vital SignAnswerDate RecordedIn the last 12 months, was there a time when you were not able to pay the mortgage or rent on time?No12/29/2024Number of Times Moved in the Last YearNot on file12/29/2024t any time in the past 12 months, were you homeless or living in a mcfp (including now)?No12/29/2024 EducationAnswerDate RecordedWhat is the highest level of school you have completed or the highest degree you have received?High school vlyndbsz69/29/2023 Estimated Date of ItyccvugWeurpzihAxq73/03/2026ased on last menstrual period of 02/21/2025Sex and Gender InformationValueDate RecordedSex Assigned at BirthNot on fileLegal WhiKqlqim21/15/2023 7:18 PM EDTGender IdentityNot on file Sexual OrientationNot on 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 Not on fileNot on fileNot on filedocumented as of this encounter Plan of Treatment DateTypeDepartmentCare Team (Latest Contact Info)Ofukaddytty66/05/2025 3:00 PM ESTRoutine [facility] [place] [facility] [address] [address] Nathan Pop, DO [address] [facility] [place] [address] documented as of this encounter Procedures Procedure NamePriorityDate/TimeAssociated DiagnosisCommentsUS OB BPP W NON-VYCMFR3109/19/2025 12:17 PM EDT documented in this encounter Results * US OB BPP W NON-STRESS (09/19/2025 12:17 PM EDT)Anatomical Region LateralityModalityOtherSpecimen (Source)Anatomical Location / Laterality Collection Method / VolumeCollection TimeReceived Time09/19/2025 12:17 PM EDT Narrative 09/19/2025 12:19 PM EDT [facility] ?[address] ? [place] [address] ? Ultrasound Report ? Signed ? Patient: DRISS GAMA ?MR#: [id number] ?? : 1995 ?Acct:[id number] ?? Age/Sex: 30 / F ?ADM Date: 09/19/25 ?? Loc: US ? Attending Dr: Steph Keane ? Ordering Physician: Steph Keane ?? Date of Service: 09/19/25 ?? Procedure(s): US OB BPP w non-stress ?? Accession Number(s): [id number] ? cc: Steph Keane; Yomaira BELTRAN ? [facility] ? [address] ? [place] [address] ? Patient Name: ?? DRISS Daniel GAMA ? MRN: [id number] ? date: 1995 ?Sex: F ?? Assigned Patient Location: [facility]BC ?? Current Patient Location: ? Accession/Order Number: [id number] ?? Exam Date: 09/19/2025 ??10:06 ?Report Date: [...] Dictation Location: RADIO-PC-20 ? Electronically authenticated by: [id number] ??Y ?? Date: 09/19/2025 ??12:17 ? Dictated By: ?Jp Morillo D.O. ? Signed By: ?09/19/25 1219 ? DD/ 1217 ? TD/TT: ? Inspector: Procedure Note Radiology, Radiologist, - 09/19/2025 [place] [address] Ultrasound Report Signed Patient: DRISS GAMA MMR#: [id number] : 1995Acct:[id number] Age/Sex: 30 / FADM Date: 09/19/25 Loc: US Attending Dr: Steph Keane Ordering Physician: Steph Keane Date of Service: 09/19/25 Procedure(s): US OB BPP w non-stress Accession Number(s): [id number] cc: Steph Keane; Yomaira BELTRAN The [address] [address] Patient Name: DRISS GAMA MRN: [id number] date: 1995 Sex: F Assigned Patient Location: [facility] Current Patient Location: Accession/Order Number: [id number] Exam Date: 09/19/2025 10:06 Report Date: 09/19/2025 [...] 12:17 PM Dictation Location: [facility] Electronically authenticated by: [id number] Y Date: 2:17 Dictated By: Jp Morillo D.O. Signed By:09/19/25 1219 DD/ 1217 TD/TT: Inspector: Authorizing ProviderResult TypeResult StatusSteph Keane NPCLINISYNC IMAGING Final Result documented in this encounter Visit Diagnoses Not on filedocumented in this encounter Care Teams Team MemberRelationshipSpecialtyStart DateEnd Date Eliceo Beltran DO [address] [place] [address] [facility] - [facility]/24 Eliceo Beltran DO [address] [place] [address] PCP - Medical [place] [employer]07/27/2412documented as of this encounter
--- OUTSIDE RECORDS SUMMARY | 2025-09-26 11:00 | XMS_ITS | Encounter Summary ---
Author Organization [facility] tem Address [facility] [address] [place] [address] Care Team Providers Care Product Mgmt Dev Manager Name Role Phone Cruz Rodríguez MD Primary Care Provider [phone] Encounter Details DateTypeDepartmentCare Team (Latest Contact Info)Odsjftevasw50/21/2025Orders Only Maternal- Medicine at [facility] [address] [place] [address] Kayleigh Rizzo, PAAlbinC [address] [address] Essential hypertension affecting in third trimester Social [...] or more drinks on one occasion?Never5ChildcareAnswer Date HidqnlskLicvdxilxNavnvkt66/13/2019EmploymentAnswerDate RecordedEmployment Dkgfjxc9605/08/2019Hunger ScreeningAnswerDate RecordedWithin the past 12 months we worried whether our food would run out before we got money to buy more.Never True09/10/2025Within the past 12 months the food we bought just didn't last and we didn't have money to get more.Never True09/10/2025Purpose - LifeAnswerDate RecordedPurpose and direction in lahqYohcuwl80/11/2021Estimated Date of YnsweplqMkleipdkGjo31/03/2026Based on last menstrual period of 02/21/2025 (Exact Date)Sex and Gender InformationValueDate RecordedSex Assigned at BirthNot on fileLegal KoaJzxyep30/07/2019 2:55 PM ESTGender IdentityNot on fileSexual OrientationNot on filedocumented as of this encounter Plan of Treatment DateTypeDepartmentCare Team (Latest Contact Info)Wtnqnnfzzov87/10/2025 3:00 PM ESTTelemedicine Maternal- Medicine at [facility] [address] [place] [address] Kayleigh Rizzo PA-C [address] [address] 10/08/2025 8:00 AM ESTAppointment Maternal Medicine [place] [address] [facility] [address] [place] [address] documented as of this encounter Visit Diagnoses Diagnosis Essential hypertension affecting in third trimester documented in this encounter Care Teams Team MemberRelationshipSpecialtyStart DateEnd Date Cruz Rodríguez MD [address] [place] [address] PCP - GeneralFamily Medicine12/02/18documented as of this encounter
--- OUTSIDE RECORDS SUMMARY | 2025-09-26 11:00 | XMS_ITS | Encounter Summary ---
Author Organization [facility] tem Address [id number] [address] [place] [address] Care Team Providers Care Fruit Grader Name Role Phone Cruz Rodríguez MD Primary Care Provider [phone] Encounter Details DateTypeDepartmentCare Team (Latest Contact Info)Tnptpjxwfua46/22/2025Telephone Maternal- Medicine at [facility] [address] [facility] [place] [address] Cha Harris, DIALLO Social History Tobacco UseTypesPacks/DayYears [...] or more drinks on one occasion?Never5ChildcareAnswer Date BjhzoedqKchfycqisCuprylh25/13/2019EmploymentAnswerDate RecordedEmployment Iecaeet6405/08/2019Hunger ScreeningAnswerDate RecordedWithin the past 12 months we worried whether our food would run out before we got money to buy more.Never True09/10/2025Within the past 12 months the food we bought just didn't last and we didn't have money to get more.Never True09/10/2025Purpose - LifeAnswerDate RecordedPurpose and direction in aeojXzjnozc75/11/2021Estimated Date of LijoglufUsmuddxmVft20/03/2026Based on last menstrual period of 02/21/2025 (Exact Date)Sex and Gender InformationValueDate RecordedSex Assigned at BirthNot on fileLegal OeeUmugqc38/07/2019 2:55 PM ESTGender IdentityNot on fileSexual OrientationNot [...] Plan of Treatment DateTypeDepartmentCare Team (Latest Contact Info)Nxfvxtjtmav32/10/2025 3:00 PM ESTTelemedicine Maternal- Medicine at [facility] [address] [place] [address] Kayleigh Meza, FORREST [address] [address] 10/08/2025 8:00 AM ESTAppointment Maternal Medicine [place] [address] [facility] 4 [place] [address] documented as of this encounter Visit Diagnoses Not on filedocumented in this encounter Care Teams Team MemberRelationshipSpecialtyStart DateEnd Date Cruz Rodríguez MD [address] [place] [address] PCP - GeneralFamily Medicine12/02/18documented as of this encounter
--- OUTSIDE RECORDS SUMMARY | 2025-09-26 11:00 | XMS_ITS | Clinical Summary ---
Author Organization [facility] Address [address] [place] [address] Care Team Providers Care Space Physicist Name Role Phone Eliceo Beltran DO Primary Care Provider [phone] Eliceo Beltran DO Unavailable [phone] Allergies No known active allergies Medications MedicationSigDispense QuantityRefillsLast FilledStart DateEnd DateStatus metoprolol succinate XL (Toprol-XL) 25 MG 24 hr tablet Indications:Hypertension, unspecified typeTake 1 tablet by mouth daily 90 tablet 5Active Vit-Fe Fumarate-FA ( Vitamins) 28-0.8 MG tablet Indications:, unspecified gestational age ([facility]),Encounter for supervision of normal first in first trimester ([facility])Take 1 tablet by mouth Daily 30 tablet 110/6Active Alcohol Swabs (Alcohol Prep Pad) 70 % pads Indications:Gestational diabetes mellitus (GDM), antepartum, gestational diabetes method of control unspecified([facility]),Elevated glucose tolerance test Apply 1 Pad topically Daily Use four times daily to check FSBS. 150 each 5Active Blood Glucose Monitoring Suppl (D-Care Glucometer) w/Device kit Indications:Gestational diabetes mellitus (GDM), antepartum, gestational diabetes method of control unspecified([facility]),Elevated glucose tolerance test1 kit Daily Use four [...] Inject 13 Units under the skin at anmegjq42/21/2025Active labetalol (Normodyne) 100 MG tablet Indications:Hypertension, unspecified typeTake 1 tablet (100 mg) by mouth in the morning and 1 tablet (100 mg) before bedtime. 60 tablet Discontinued Lancets Ultra Thin [facility] [place] Indications:Gestational diabetes mellitus (GDM), antepartum, gestational diabetes [...] atotal of 4times daily. 150 strip Expired jtfesabvwe-dgdhzap-nvtejmfw (Fiorinal) 50-325-40 MG capsule Take 1 capsule by mouth every 4 (four) hours if oygzmo0209/16/2025Discontinued cetirizine (ZyrTEC) 10 MG tablet Take 10 mg by mouth in the morning.09/16/2025Discontinued Ferrous Sulfate (IRON PO) Take 1 tablet by mouth in the morning.09/16/2025Discontinued fluticasone (Flonase) 50 MCG/ACT nasal spray Administer 1 spray into affected nostril(s) in the morning.09/16/2025 Discontinued Active Problems ProblemNoted DateDiagnosed FgpoHtfrrrfs82/29/2528Fwlagcljqpz62/26/2024Obesity (BMI 30-39.9)02/19/2024cquired equinus deformity of foot03/29/2023isplacement of cervical intervertebral disc without hudijmbprg92/04/2023ysmenorrhea 03/29/20238175Ybzgtilcofbkp99/04/0124Hdsegtnmpfhom07/04/6141Avvgukjvirjh29/04/2023 Assessment & Plan (07/30/2025 4:00 PM EDT): Record Blood Pressures 2-4 times weekly and record. Return with readings at next appointment. Call with readings if sees significant changes Intractable migraine without aura and with status opmdccwsicd22/04/2023Migraines 03/29/2023hronic pelvic pain in wiwzqf1503/29/2023ain in female genitalia on tzihkurvxay99/04/2023ain on mydwrpczkq39/04/2023anic qpmmjfgo89/04/2023 Patellofemoral disorders, left knee03/29/2023atellofemoral disorders, right knee03/29/2023osterior calcaneal raputmwed90/04/2023Scapular dyskinesis 03/29/20233625Uflneuubm09/04/2023Seasonal allergic rhinitis due to nlqgav1103/29/2023 Tachycardia, qmclpdsycm13/04/2023Tension spmhfkea56/04/2023Vitamin B12 gdayxmtqyh33/04/2023Vitamin D qzfclyxhjp97/04/2023hronic right shoulder pain 03/29/2023Estimated Date of BektnqknXblmvvpwYdo50/03/2026Based on last menstrual period of 02/21/2025 Encounters DateTypeDepartmentCare QzkjOvxzjsdnuoc16/29/1544Czcfyy82/25/2025linisync Result Encounter [facility] External Department Unsolicited Steph Keane NP 09/16/2025 3:20 [place] [address] Nahtan Pop DO 29 weeks gestation of ([facility]); Third trimester ([facility]); Hypertension affecting , antepartum ([facility]); Gestational diabetes mellitus (GDM), antepartum, gestational diabetes method of control unspecified([facility])09/16/2025amboo [place] [address] Nathan Pop, DO 09/11/2025bstract [facility] [place] [facility] [address] [place] [address] Nathan Pop, DO 09/09/20256840Zbilfi14/09/2025 3:50 PM EDTRoutine [facility] [place] [facility] [address] [place] [phone] Steph Keane NP Hypertension affecting , antepartum ([facility]) (Primary Dx); 27 weeks gestation of ([facility]); Second trimester ([facility])09/03/2025linisync Result Encounter NOMS External Department Unsolicited Nathan Pop, DO 09/03/2025amboo flowsheet [facility] [place] [facility] [address] [place] [phone] Steph Keane NP 09/02/20256199Uguqfx21/04/2025linisync Result Encounter NOMS External Department Unsolicited Steph Keane NP 08/28/2025bstract [facility] [place] [facility] [address] [place] [address] Eliceo Beltran DO 08/28/2025Telephone [facility] [place] [facility] [address] [place] [phone] Radha Rahman MA 08/27/2025 3:20 PM EDTRoutine [facility] [place] [facility] [address] [place] [address] Steph Keane NP 26 weeks gestation of ([facility]); Second trimester ([facility]); induced hypertension, antepartum ([facility]); Gestational diabetes mellitus (GDM) in second trimester, gestational diabetes method of control unspecified ([facility])08/27/2025linisync Result Encounter NOMS External Department Unsolicited Steph Keane, [employer]YING [employer] 5Clinisync Result Encounter NOMS External Department Unsolicited LakhwinderSteph montiel, [employer]YING [employer] 5Bamboo flowsheet [facility] [place] [facility] [address] [place] [address] Lakhwinder, Steph, [employer] 5Clinisync Result Encounter NOMS External Department Unsolicited Provider, Generic External Data 08/20/2025bstract [facility] [place] [facility] [address] [place] [address] Nathan Pop, DO 08/20/2025Telephone [facility] [place] [facility] [address] [place] [address] Steph Keane, SURVEYING [employer] 08/17/2025bstract [facility] [address] [place] [phone] Eliceo Beltran, DO 08/17/2025bstract [facility] [address] [place] [phone] Eliceo Beltran, DO 08/17/2025Telephone [facility] [place] [facility] [address] [place] [address] Nathan Pop, DO 08/12/2025 2:40 PM EDTRoutine [facility] [place] [facility] [address] [place] [address] Nathan Pop, DO 24 weeks gestation of ([facility]); Second trimester ([facility]); Elevated glucose tolerance test08/12/2025 2:00 PM EDTAncillary Procedure [facility] [place] [facility] [address] [place] [address] Encounter for follow-up ultrasound of anatomy ([facility])08/12/2025Telephone [facility] [address] [place] [address] Bill Gould LPN Dtnglnj8808/12/2025bstract [facility] [address] [place] [address] Eliceo Beltran, DO 08/04/2025Telephone [facility] [address] [place] [address] Bill Gould LPN Jtgbmcb0207/30/2025 3:40 PM EDTOffice Visit [facility] [address] [place] [address] Eliceo Beltran, DO Wellness examination (Primary Dx); Hypertension, unspecified type ; Lipid kvyxpiggw97/04/2025amboo flowsheet [facility] [address] [place] [address] Eliceo Beltran, DO 07/30/20250756Enpkcn36/26/2025Telephone [facility] [place] [facility] [address] [place] [place] [address] Nathan Pop DO 07/15/2025 3:30 [place] [address] Nathan Pop DO 20 weeks gestation of ([facility]); Second trimester ([facility]); Diabetes mellitus kmjbwazte11/20/2025 2:30 PM EDTAncillary Procedure [facility] [place] [facility] [place] [address] Screening, , for anatomic survey ([facility])07/15/2025linisync Result Encounter NOMS External Department Unsolicited Nathan Pop DO from Last 3 Months Immunizations ImmunizationAdministration DatesNext DueDTP / HiB08/01/1996,1995, 1995DTaP, Jfjyhejybhm12/08/2000,12/29/1997HPV, Hdnkbubbcdgm24/17/2014, 05/04/2014,2014Hep A, Adult09/11/2014,2014Hep B, Adolescent or Xyrqsrolc80/06/1996,1995,1995IPV05/03/2000Influenza, seasonal, injectable, preservative free09/11/2014MMR05/03/2000,08/01/1996Meningococcal IZZ4C8304/03/2007OPV08/01/1996,1995,1995Tdap2014 Family History Medical HistoryRelationNameCommentsAnemiaFatherColon cancerFatherCancerMaternal GrandfatherbutchHypertensionMaternal GrandfatherbutchBreast cancerMaternal GrandmotherHypertensionMotherdarleneColon cancerPaternal GrandfatherRelationName StatusCommentsFatherDeceasedMaternal GrandfatherbutchMaternal GrandmotherMother darleneAlivePaternal GrandfatherPaternal GrandmotherAlive Social History Tobacco UseTypesPacks/DayYears UsedDateSmoking Tobacco: NeverSmokeless Tobacco: Never Tobacco Cessation:Counseling Given: Not Answered Alcohol UseStandard Drinks/WeekCommentsNever0 (1 standard drink = 0.6 oz pure alcohol)caffeine: 1-2 cups per day, coffee and jqxF8147 Health LiteracyAnswer Date RecordedHow often do you [...] relatives?Once a week12/29/2024How often do you attend uatsdin or samaritan services?Patient qxoukdez37/03/2025Do you belong to any clubs or organizations such as uatsdin groups, [employer], [employer] or athletic [employer] ups, or school groups?No12/29/2024How often do you [...] hard at all12/29/2024PHQ-2AnswerDate RecordedPatient Health Questionnaire-2 Score0 07/30/2025[facility] - Occupational Stress QuestionnaireAnswerDate RecordedDo you feel stress - tense, restless, nervous, or anxious, or unable to sleep at night because yourmind is troubled all the time - these days?Only a rildtk7512/29/2024Exercise Vital SignAnswerDate Recorded On average, how many [...] steady place to sleep or slept in [place] (including now)?No09/19/2023Housing Stability Vital SignAnswerDate RecordedIn the [...] the highest degree you have received?High school ufafhxts00/29/2023 Estimated Date of WmefgcbhAonswqbrBei81/03/2026ased on last menstrual period of 02/21/2025Sex and Gender InformationValueDate RecordedSex Assigned at BirthNot on fileLegal BqjAvodhp37/15/2023 7:18 PM EDTGender IdentityNot on file Sexual OrientationNot on 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 Not on fileNot on fileNot on file Last Filed Vital Signs Vital SignReadingTime TakenCommentsBlood Brcorbbk041/8010/ 4:04 PM EDT Cfbxe1990 3:36 PM GCXEjfcbhltzmd30.2 ??C (97.1 ??F)07/30/2025 3:36 PM EDTRespiratory Zcct432512/23/2022 4:16 PM ESTOxygen Zlqoxjqvvf37%07/30/2025 3:36 PM EDTInhaled Oxygen Concentration--Pkoatt27.8 kg (162 lb 12.8 oz)09/16/2025 4:04 PM WRZWzayrg129.5 cm (5' 2 )07/30/2025 3:36 PM EDTBody Mass Index29.78 07/30/2025 3:36 PM EDT Plan of Treatment DateTypeDepartmentCare Team (Latest Contact Info)Woiqupwxhkg97/05/2025 3:00 PM ESTRoutine [facility] [place] [facility] [address] [place] [phone] Nathan Pop DO [address] [place] [address] Health MaintenanceDue DateLast DoneCommentsVaricella Vaccines (1 of 2 - 13+ 2- dose series)2008DTaP/Tdap/Td Vaccines (7 - Td or Tdap)2024 2014, 05/03/2000, 12/29/1997, Additional history existsCOVID-19 Vaccine ( season)2025Influenza Vaccine (#1)Pap Smear , 08/15/2023, 06/20/2022, Additional history existsCervical Cancer Pkbaiywlo77/09/2028HPV/Dcvttu96HIB VaccinesCompleted 08/01/1996, 1995, 1995Hepatitis B UsxexpbtMrethaozv97/06/1996, 1995, 1995IPV ArgnjlzjDtaysbhpk32/08/2000, 08/01/1996, 1995, Additional history existsMMR HvklotobYxsrwfffp17/08/2000, 08/01/1996HPV Vaccines Iomvicdmg25/17/2014, 05/04/2014, 2014Hepatitis A VaccinesAged Out 09/11/2014, 2014No [...] Procedures Procedure NamePriorityDate/TimeAssociated DiagnosisCommentsUS OB BPP W NON-DBJQIG0409/19/2025 12:17 PM EDT POCT URINALYSIS PKYDQLIGPkdlgze30/22/2025 4:09 PM EDT 29 weeks gestation of ([facility]) Third trimester ([facility]) ALL CBC WITH AUTO AVEIYwadqur51/09/2025 5:15 PM EDT MHPT CONRSRLGVPBohgtiu92/09/2025 5:15 PM EDT [facility] CAYLTdkjoug60/09/2025 5:15 PM EDT SRMCOH PROTHROMBIN TIME INR W/O IOVTRhgnkju92/09/2025 5:15 PM EDT [facility] KZSUypoxtz86/09/2025 5:15 PM EDT [facility] UWGHjpjnnc86/09/2025 5:15 PM EDT ALL URIC AOGIQodjtkm49/09/2025 5:15 PM EDT TB[facility] CDVCTLXKCHSlkrmjz26/09/2025 5:15 PM EDT ALL QNGEjwusov51/09/2025 5:15 PM EDT [facility] URINE T PROTEIN CREAT MTFJCBnwebre17/09/2025 5:05 PM EDT POCT URINALYSIS AIOQFFHQXgtdgee07/09/2025 4:26 PM EDT 27 weeks gestation of ([facility]) TBH TOTAL PROTEIN 24 HOUR FJEVONlkvapi97/04/2025 8:00 AM EDT US OB BPP W NON-SKGVRM6008/27/2025 6:02 PM EDT TB[facility] URINE T PROTEIN CREAT LTXLVMmnnulr62/02/2025 5:50 PM EDT [facility] KPSFlwpbec93/02/2025 5:00 PM EDT [facility] RRCZLwmwaav91/02/2025 5:00 PM EDT SRMCOH PROTHROMBIN TIME INR W/O IPEOVuohaqu64/02/2025 5:00 PM EDT ALL FAOKgqthhq14/02/2025 5:00 PM EDT [facility] MERAxwxmri00/02/2025 5:00 PM EDT ALL URIC UZZVJkfypml83/02/2025 5:00 PM EDT TBH JSWLWLMYIGXorzist16/02/2025 5:00 PM EDT ALL LPPPovdzvs44/02/2025 5:00 PM EDT ALL CBC WITH AUTO NSPVFfrkxyl02/02/2025 5:00 PM EDT POCT URINALYSIS INNWCFWYCjxzawu07/02/2025 3:53 PM EDT 26 weeks gestation of ([facility]) URINE CULTURE, XEKIUSJJlogvri28/30/2025 8:10 AM EDT POCT URINALYSIS LROFYIPGYhrtkhr58/17/2025 2:39 PM EDT 24 weeks gestation of ([facility]) Second trimester ([facility]) US OB LIMITED 1+ XGAOVSFJasryst47/17/2025 2:22 PM EDT Encounter for follow-up ultrasound of anatomy ([facility]) AFP, SERUM, OPEN SPINA DSSDEVXvivowk29/20/2025 5:07 PM EDT POCT URINALYSIS CWQSEBTQHrczphb77/20/2025 3:50 PM EDT 20 weeks gestation of ([facility]) Second trimester ([facility]) US OB 14+ WEEKS ANATOMY TDUXVgrslmq08/20/2025 3:26 PM EDT Screening, , for anatomic survey ([facility]) PAP PXFNHHveqyyo16/23/2024 12:00 AM EDTTHINPREP PAP AND HPV MRNA E6/E7 W/RFL HPV 16,18/83Azcemtc02/09/2023 4:00 PM EDT Well woman exam with routine gynecological exam from Last 3 Months or Most Recently Relevant to Health Maintenance Results * US OB BPP W NON-STRESS (09/19/2025 12:17 PM EDT) Only the most recent of2 resultswithin the time period is included. Anatomical RegionLateralityModalityOtherSpecimen (Source)Anatomical Location / LateralityCollection Method / VolumeCollection TimeReceived Time09/19/2025 12:17 PM EDT Narrative 09/19/2025 12:19 PM EDT [facility] ?[address] ? [place] [address] ? Ultrasound Report ? Signed ? Patient: JAYY,DRISS M ?MR#: [id number] ?? : 1995 ?Acct:[id number] ?? Age/Sex: 30 / F ?ADM Date: 10/25/25 ?? Loc: US ? Attending Thony Keane ? Ordering Physician: Steph Keane ?? Date of Service: 09/19/25 ?? Procedure(s): US OB BPP w non-stress ?? Accession Number(s): [id number] ? cc: Steph Keane; Yomaira BELTRAN ? [facility] ? [address] ? [place] [address] ? Patient Name: ?? DRISS GAMA ? MRN: [facility]:[id number] ? date: 1995 ?Sex: F ?? Assigned Patient Location: [facility] ?? Current Patient Location: ? Accession/Order Number: [id number] ?? Exam Date: 09/19/2025 ??10:06 ?Report Date: [...] M.D. ??09/19/2025 12:17 PM ? Dictation Location: [facility]- ? Electronically authenticated by: [id number] ??Y ?? Date: 09/19/2025 ??12:17 ? Dictated By: ?Jp Morillo D.O. ? Signed By: ?09/19/25 1219 ? DD/ ? TD/TT: ? Node Js Developer: Procedure Note Radiology, Radiologist, MD - 09/19/2025 [place] [address] Ultrasound Report Signed Patient: DRISS GAMA [facility]#: [id number] : 1995Acct:[id number] Age/Sex: 30 / FADM Date: 09/19/25 Loc: US Attending Dr: Steph Keane Ordering Physician: Steph Keane Date of Service: 09/19/25 Procedure(s): US OB BPP w non-stress Accession Number(s): [id number] cc: Steph Keane; Yomaira BELTRAN [address] [address] Patient Name: DRISS GAMA MRN: [facility]:[id number] date: 1995 Sex: F Assigned Patient Location: [facility] Current Patient Location: Accession/Order Number: [id number] Exam Date: 09/19/2025 10:06 Report Date: 09/19/2025 [...] Morillo M.D. 09/19/2025 12:17 PM Dictation Location: [place] [address] Electronically authenticated by: [id number] Y Date: 2:17 Dictated By: Jp Morillo D.O. Signed By:09/19/25 1219 DD/ 121 TD/TT: Node Js Developer: Authorizing ProviderResult TypeResult StatusSteph Keane NPCLINISYNC IMAGING [...] Location / LateralityCollection Method / VolumeCollection TimeReceived UtafCplpn57/22/2025 4:09 PM EDT Narrative Authorizing ProviderResult TypeResult StatusCorepearl Pop DOPOINT OF CARE TEST ENTER/EDIT ORDERABLESFinal Result * (ABNORMAL) TB CREATININE (09/03/2025 5:15 PM EDT) Only the most recent of2 resultswithin the time period is included. ComponentValueRef RangeTest MethodAnalysis TimePerformed AtPathologist Signature CREATININE0.42(L)0.55 - 1.02 mg/dLTBHT EGFR-AF ANDORRAN>60>=60 mL/min/1.73m 2 TBHTBH EGFR-NON AF ANDORRAN>60>=60 mL/min/1.73m 2TBHSpecimen (Source)Anatomical Location / LateralityCollection Method / VolumeCollection TimeReceived Time 09/03/2025 5:15 PM EDT1 5:21 PM EDT Narrative CLINISYNC - 09/03/2025 5:40 PM EDT Authorizing ProviderResult TypeResult StatusCorepearl Pop DOCLINISYNCFinal Result Performing OrganizationAddressCity/State/ZIP CodePhone Number CLINISYNC [facility] * SRMCOH PROTHROMBIN TIME INR W/O [...] Kiesha DOCLINISYNCFinal Result Performing OrganizationAddressCity/State/ZIP CodePhone Number TRICI[facility] * (ABNORMAL) MHPT FIBRINOGEN (09/03/2025 5:15 PM EDT)ComponentValueRef RangeTest MethodAnalysis TimePerformed AtPathologist ZtcufvvkpYXCVBHMXMS377(H)200 - 400 mg/dLTBHSpecimen (Source)Anatomical Location / LateralityCollection Method / VolumeCollection TimeReceived Time09/03/2025 5:15 PM EDT1 5:21 PM EDT Narrative CLINISYNC - 09/03/2025 5:45 PM EDT Authorizing ProviderResult TypeResult StatusCorey Kiesha DOCLINISYNCFinal Result Performing OrganizationAddressCity/State/ZIP CodePhone Number [facility] * [facility] AST (09/03/2025 5:15 PM EDT) Only the most recent of2 resultswithin the time period is included. ComponentValueRef RangeTest MethodAnalysis TimePerformed AtPathologist Signature ASPARTATE AMINO GDUDNEKLBQU3078 - 37 U/LTBHSpecimen (Source)Anatomical Location / LateralityCollection Method / VolumeCollection TimeReceived Time09/03/2025 5:15 PM EDT1 5:21 PM EDT Narrative CLINISYNC - 09/03/2025 5:40 PM EDT Authorizing ProviderResult TypeResult StatusCorey Kiesha DOCLINISYNCFinal Result Performing OrganizationAddressCity/State/ZIP CodePhone Number [facility] * [facility]CF APTT (09/03/2025 5:15 PM EDT) [...] Kiesha DOCLINISYNCFinal Result Performing OrganizationAddressCity/State/ZIP CodePhone Number [facility] * CCF ALT (09/03/2025 5:15 PM EDT) Only the most recent of2 resultswithin the time period is included. ComponentValueRef RangeTest MethodAnalysis TimePerformed AtPathologist Signature ALANINE YJIDGGESJLBKSMAV0369 - 59 U/LTBHSpecimen (Source)Anatomical Location / LateralityCollection Method / VolumeCollection TimeReceived Time09/03/2025 5:15 PM EDT1 5:21 PM EDT Narrative CLINISYNC - 09/03/2025 5:40 PM EDT Authorizing ProviderResult TypeResult StatusCorey Kiesha DOCLINISYNCFinal Result Performing OrganizationAddressty/State/ZIP CodePhone Number CLINISYNC TB * ALL URIC ACID (09/03/2025 5:15 PM EDT) Only the most recent of2 resultswithin the time period is included. ComponentValueRef RangeTest MethodAnalysis TimePerformed AtPathologist Signature URIC ACID3.52.6 - 6.0 mg/dLTBHSpecimen (Source)Anatomical Location / Laterality Collection Method / VolumeCollection TimeReceived Time09/03/2025 5:15 PM EDT 09/03/2025 5:21 PM EDT [facility] CLINISYNC - 09/03/2025 5:40 PM EDT Authorizing ProviderResult TypeResult StatusCorey Kiesha DOCLINISYNCFinal Result Performing OrganizationAddSaint John Vianney Hospitalty/State/ZIP CodePhone Number MATTHEWISYNC TB * (ABNORMAL) ALL CBC WITH AUTO [...] - 35.2 g/dLTBHTBH RDW13.611.0 - 15.0 %TBHTBH YPQ465084 - 450 10 3/uLTBHTBH MPV9.89.5 - 13.5 [...] Kiesha DOCLINISYNCFinal Result Performing OrganizationAddressCity/State/ZIP CodePhone Number [facility] * ALL BUN (09/03/2025 5:15 PM [...] RangeTest MethodAnalysis TimePerformed AtPathologist SignatureTOTAL PROTEIN URINE FBGZNP09.6(H)<=11.9 mg/dLTBHTOTAL VOLUME 24 HOUR QTBGL298oA/24hr TBHTBH TOTAL PROTEIN 24 HOUR OZHLN273.6<=149.1 mg/24hrTBHSpecimen (Source) Anatomical Location / LateralityCollection Method / VolumeCollection Time Received Time08/29/2025 8:00 AM EDT1 10:35 AM EDT Narrative CLINISYNC - 08/29/2025 12:08 PM EDT Authorizing ProviderResult TypeResult StatusGeneric External Data Provider CLINISYNCFinal ResultPerforming OrganizationAddressCity/State/ZIP CodePhone Number CLINISYNC [facility] * ALL LDH (08/27/2025 5:00 PM EDT)ComponentValueRef RangeTest MethodAnalysis TimePerformed AtPathologist SignatureLACTATE CVGLOTROFIJPJ18769 - 234 U/LTBH Specimen (Source)Anatomical Location / LateralityCollection Method / Volume Collection TimeReceived Time08/27/2025 5:00 PM EDT1 5:01 PM EDT Narrative JENNIFER - 08/27/2025 5:19 PM EDT Authorizing ProviderResult TypeResult StatusSteph Keane NPCLINISYNCFinal ResultPerforming OrganizationAddressCity/State/ZIP CodePhone Number [facility] * URINE CULTURE, ROUTINE (08/25/2025 8:10 AM EDT)ComponentValueRef RangeTest MethodAnalysis TimePerformed AtPathologist SignatureURINE CULTURE, ROUTINE ??Urine Culture, Routine TBHURINE CULTURE, ROUTINEMixed urogenital floraTBHURINE CULTURE, VEUAUJN61,000- 50,000 colony forming units per mLTBHURINE CULTURE, ROUTINEPerformed at: [facility] LabCorewell Health William Beaumont University HospitalTBHURINE CULTURE, [id number] [place], [place] [id number] URINE CULTURE, ROUTINELab Director: Cm Sandoval PhD, Phone: [phone] Specimen (Source)Anatomical Location / LateralityCollection Method / Volume Collection TimeReceived Time08/25/2025 8:10 AM EDT08/25/2025 8:30 AM EDT Narrative JENNIFER - 08/26/2025 10:07 PM EDT Authorizing ProviderResult TypeResult StatusGeneric External Data ProviderLAB BLOOD ORDERABLESFinal ResultPerforming OrganizationAddressCity/State/ZIP Code Phone Number [facility] * US OB limited 1+ fetuses [...] Alas MD Authorizing ProviderResult TypeResult StatusCorey Kiesha DOI OB US PROCEDURES Final Result * AFP, SERUM, OPEN SPINA BIFIDA (07/15/2025 5:07 PM EDT)ComponentValueRef Range Test MethodAnalysis TimePerformed AtPathologist SignatureRESULTSReport.TBHTEST RESULTS:*Screen Negative*.TBHGEST. AGE ON COLLECTION DATE20.6. weeksTBHGESTAT. AGE BASED ONLMP.TBHComment: Recalculations are not recommended when gestational dating by LMP and ultrasound are within 10 days. MATERNAL AGE AT EDD30.7. yrTBHRACECaucasian.JRMJBROBN783. lbsTBHINSULIN DEP DIABETESNo.TBHMULTIPLE GESTATIONNo.TBHAFP VALUE59.2. ng/mLTBHAFP MOM0.95.TBHOSBR RISK 1 MA20890.TBHINTERPRETATIONComment.TBHComment: Interpretation: Screen Negative This result is screen [...] Customer Services to discuss available options. ??The [employer] recommends amniocentesis be offered to women age 35 and older. COMMENT:Comment.TBHComment: Amy Ramos, Ph.D., [facility] Director References: Available Upon Request. Multiples Of Median Cutoffs ?For AFP Elevations Hsieh ?? 2.5 ? Black ?2.8 IDD ? 2.0 ? Twins ?4.5 ?Abbreviation Definitions IDD - Insulin Dep Diabetes OSBR - Open Spina Bifida Risk For further inquiries contact [employer] [facility] at [phone]. This test was developed and its performance characteristics determined by [employer]. It has not been cleared or approved by the Food and Drug Administration. Performed at: ??[facility] [place], [place] ??[phone] Advanced Practice Registered Nurse: Dona Justin [facility], Phone: ??[phone] Specimen (Source)Anatomical Location / LateralityCollection Method / Volume Collection TimeReceived Time07/15/2025 5:07 PM EDT07/15/2025 5:10 PM EDT Narrative JENNIFER - 07/18/2025 1:07 AM EDT N N LMP [id number] 2 17 N 1 Y 146 N N N N N White/ Authorizing ProviderResult TypeResult StatusGeneric External Data ProviderLAB BLOOD ORDERABLESFinal ResultPerforming OrganizationAddressCity/State/ZIP Code Phone Number [facility] * US OB 14+ weeks anatomy scan [...] ?? , PHD at 16-Jul-2025 08:07:07 AM [facility] Procedure Note Travis Rueda MD - [...] TRAVIS RUEDA II, MD, PHD 08:07:07 AM [facility] Authorizing ProviderResult TypeResult StatusCorey Kiesha DOIMG OB [...] EDT) Narrative Authorizing ProviderResult TypeResult StatusAmy Brenda PALAB BLOOD ORDERABLES Final ResultPerforming OrganizationAddressCity/State/ZIP CodePhone Number EXTERNAL LAB from Last 3 Months or Most Recently Relevant to Health Maintenance Insurance Care Teams Team MemberRelationshipSpecialtyStart DateEnd Date Eliceo Beltran DO [address] [place] [address] PCP - GeneralFamily Medicine02/14/24 Eliceo Beltran DO [address] [place] [address] PCP - Medical [place] [employer]07/27/2412
--- OUTSIDE RECORDS SUMMARY | 2025-09-26 11:00 | XMS_ITS | Clinical Summary ---
Author Organization [employer] tem Address [id number] [address] [place] [address] Care Team Providers Care Odd Job Worker Name Role Phone Cruz oRdríguez MD Primary Care Provider [phone] Allergies No known active allergies Medications MedicationSigDispense [...] subQ at bedtime. 15 mL 5Active rizatriptan SAWMILL WORKER (MAXALT-SAWMILL WORKER) 5 mg disintegrating tablet Dissolve 1 tablet [...] total) by mouth in the morning.09/04/2025Discontinued () chkdlbgwue-wqjexmi-tnvqmigi (FIORINAL) 50-325-40 mg per capsule Take 1 [...] ProblemNoted DateDiagnosed DateEssential hypertension affecting in third qxukqrjrh38/10/2025Insulin controlled gestational diabetes mellitus (GDM) in third /26/2025Estimated Date of DeliveryCommentsYes 11/28/2025ased on last menstrual period of 02/21/2025 (Exact Date) Encounters DateTypeDepartmentCare MwzcBqayqkphxwg21/27/2025Telephone Maternal- Medicine at [facility] [address] [place] [address] Verito Gudino LD 09/21/2025Remote Patient Monitoring Maternal- Medicine at [facility] [address] [place] [address] Kayleigh Rizzo PA-C Insulin controlled gestational diabetes mellitus (GDM) in third trimester (Primary Dx); Essential hypertension affecting in third xylyenmnd90/23/2025Orders Only Maternal- Medicine at [facility] [address] [place] [address] Camila Arciniega, REAL ESTATE AGENT/BROKER-CNM Essential hypertension affecting in third snvikbizb96/22/2025Telephone Maternal- Medicine at [facility] [address] [place] [address] Cha Harris, DIALLO 09/15/2025Orders Only Maternal- Medicine at [facility] [address] [place] [address] Kayleigh Rizzo PA-C Essential hypertension affecting in third kvczddonp88/16/2025 11:00 AM EDTTelemedicine Maternal Medicine [place] [address] [phone] Madhuri Monroy MD 28 weeks gestation of (Primary Dx); Insulin controlled gestational diabetes mellitus (GDM) in second trimester; Essential hypertension affecting in third mnezvccgf11/16/2025Orders Only Maternal- Medicine at [facility] [address] [place] [address] Zora Samuels RN Essential hypertension affecting in third trimester (Primary Dx); Insulin controlled gestational diabetes mellitus (GDM) in second trimester; Encounter for follow-up ultrasound of zdehlcq9409/10/20255041Qusyox70/10/2025 3:00 PM EDTOffice Visit Maternal- Medicine at [facility] [address] [place] [address] Jean Carlos Pina MD Diet controlled gestational diabetes mellitus (GDM) in second trimester (Primary Dx); Essential hypertension affecting in third dikqudkiy54/08/2025Travel 09/01/2025Telephone Maternal- Medicine at [facility] [address] [place] [address] Cha Harris, DIALLO 08/24/2025 1:30 PM EDTSupport Visit Maternal- Medicine at [facility] [address] [place] [address] Teena Sarmiento RN Kerline Steiner RD Gestational diabetes mellitus (GDM) in second trimester, gestational diabetes method of control sytpwfsoumh36/28/7804Opgtxi10/27/1931Psacrr95/26/2025bstract Maternal- Medicine at [facility] [address] [place] [address] External, Scanning Provider 08/19/2025Orders Only Maternal- Medicine at [place] [address] [place] [address] Ref Prov, Not In System 08/18/2025bstract Maternal- Medicine at [facility] [place] [address] [place] [address] Madhuri Monroy MD 08/18/2025Orders Only Maternal- Medicine at [facility] [place] [address] [place] [address] Khalida Garrett RN History of pre-eclampsia in [...] or more drinks on one occasion?Never09/10/2025hildcareAnswer Date XllzjflzYzbqyirofDourbcu13/13/2019EmploymentAnswerDate RecordedEmployment Hvyyaqn2905/08/2019Hunger ScreeningAnswerDate RecordedWithin the past 12 months we worried whether our food would run out before we got money to buy more.Never True09/10/2025Within the past 12 months the food we bought just didn't last and we didn't have money to get more.Never True09/10/2025Purpose - LifeAnswerDate RecordedPurpose and direction in hsmrTavdxmv73/11/2021Estimated Date of WmtdeoczCrpvkpgeCpj55/03/2026Based on last menstrual period of 02/21/2025 (Exact Date)Sex and Gender InformationValueDate RecordedSex Assigned at BirthNot on fileLegal NyyQsjlqz32/07/2019 2:55 PM ESTGender IdentityNot on fileSexual OrientationNot on file Last Filed Vital Signs Vital SignReadingTime TakenCommentsBlood Xkdcscck338/801 10:34 AM EDT Jpinc49207/10/2025 2:48 PM EDTTemperature--Respiratory Ghqc9825 11:10 AM ESTOxygen Wagzltbfhb45%12/10/2018 11:10 AM ESTInhaled Oxygen Concentration-- Evqnjm95.6 kg (160 lb)09/10/2025 10:34 AM OZCInngnx838.5 cm (5' 2.01 )09/04/2025 2:48 PM EDTBody Mass Index29.2610 2:48 PM EDT Plan of Treatment DateTypeDepartmentCare Team (Latest Contact Info)Gqeipxtdomz90/10/2025 3:00 PM ESTTelemedicine Maternal- Medicine at [facility] [address] [place] [address] Kayleigh Rizzo PA-C [address] [address] 10/08/2025 8:00 AM ESTAppointment Maternal Medicine [place] [address] [facility] [address] [place] [address] Health MaintenanceDue DateLast DoneCommentsDepression Woifqkfpt37/08/2007dult BMI Follow Up Plan2013DTaP,Tdap and Td Vaccines (7 - Td or Tdap)2024 2014, 05/03/2000, 12/29/1997, Additional history existsInfluenza Vaccine RSV ( or age 60+ yrs) (1 - Risk 1-dose series)10/03/2025dult BMI Hnlifltxp85Tobacco Screening Pap Smear Medical Devices Not on file Procedures Procedure NamePriorityDate/TimeAssociated DiagnosisCommentsUS [facility] COMPRE[facility]ENSIVE [facility]IC NSXJKGBlrfapn85/16/2025 10:56 AM EDT History of pre-eclampsia in prior , currently GLUCOSE TOLERANCE, 3 LDKDLJbuefmb90/20/2025 GLUCOSE TOLERANCE, MDFLNNIXjisqwt96/20/2025 GLUCOSE TOLERANCE, 1 IPIMTbcurkh89/20/2025 SECOND HOUR GLUCOSE TOLERANCE 100 GM YBVDKecvdtp35/20/2025 ULTRASOUND RYUOZBXjvfxsx45/17/2025 3:39 PM EDTGLU 1H POST 50G LOADRoutine 08/12/2025 ULTRASOUND OYFEWFQezynza44/20/2025 3:43 PM EDTAFP SINGLE MARKER SCRN, MATERNAL, QCMOWMarjkie29/20/2025 10:17 AM EDTUNLISTED LAB UNZVRhuskkp69/09/2025 11:17 AM EDTfrom Last 3 Months Results * US [facility] COMPREHENSIVE ANATOMIC SURVEY (09/10/2025 10:56 AM EDT)Anatomical RegionLateralityModalityOB-GYNUltrasoundSpecimen (Source)Anatomical Location / LateralityCollection Method / VolumeCollection TimeReceived Time10/ 9:58 AM EDT Narrative 09/10/2025 3:55 PM EDT NAME: ??JAYY REYNAGA : 1995 SEX: F Accession Number: [id number] ORDERING PHYSICIAN: MADHURI MONROY REFERRING PHYSICIAN: JONY MEJÍA Coding Procedures ? 90144: Ultrasound, uterus, real time with image documentation, and maternal evaluation ? plus detailed anatomic examination, transabdominal approach;single or first gestation ? 12624: Ultrasound, uterus, real time with image documentation, transvaginal Indication Screening for Anatomic Survey , Screening for cervical length , Gestational diabetes, Chronic hypertension affecting , History of prior with pre-eclampsia , History of prior with delivery , Previous surgery to cervix -(D&C). History OB History ? 2. Para 1 ? [id number] Current Cell free DNA ?Low Risk analysis Maternal Assessment Physical Exam ??Height 157 cm, 5 ft 2 in. Weight 75 kg, 165 lb. Initial weight 64 kg, 140 lb. BMI 30.18 kg/m??. Initial ? BMI 25.61 kg/m??. Weight gain 11 kg, 25 lb Method Transabdominal and transvaginal ultrasound examination. View: Suboptimal view: limited by position. Medical Cutting Inspector Cutting Inspector declined Hsieh . Number of fetuses: 1 [...] (oz) ? 15 oz EFW by: ?Hadlock (XIS-JC-HB-FL) Extended Tibia ??44.3 mm 27w 2d 10% Gerda Master Hearth Technician ? 3.2 mm CM ? 6.6 mm [...] Heart / Thorax RVOT view. LVOT view. 9-swhymi-aaoavxr view. Bicaval view. Ductal arch view. Extremities [...] REYNAGA : 1995 SEX: F Accession Number: [id number] ORDERING PHYSICIAN: MADHURI MONROY REFERRING PHYSICIAN: JONY MEJÍA Coding Procedures 29679: Ultrasound, uterus, real time with image documentation, and maternal evaluation plus detailed anatomic examination, transabdominalapproach;single or first gestation 43049: Ultrasound, uterus, real time with imagedocumentation, transvaginal Indication Screening for Anatomic Survey , Screening for cervical length ,Gestational diabetes, Chronic hypertension affecting , History of prior with pre-eclampsia , History of prior pregnancywith delivery , Previous surgery to cervix -(D&C). History OB History 2. Para 1 O4S1G0N7 Current Cell free DNA Low Risk analysis Maternal Assessment Physical Exam Height 157 cm, 5 ft 2 in. Weight 75 kg, 165 lb. Initialweight 64 kg, 140 lb. BMI 30.18 kg/m??. Initial BMI 25.61 kg/m??. Weight gain 11 kg, 25 lb Method Transabdominal and transvaginal ultrasound examination. View: Suboptimalview: limited by position. Medical Cutting Inspector Cutting Inspector declined Hsieh . Number of fetuses: 1 [...] EFW (oz) 15 oz EFW by: Hadlock (PVS-IN-PN-FL) Extended Tibia 44.3 mm 27w 2d 10% Gerda Master Hearth Technician 3.2 mm CM 6.6 mm 44% Nicolaides [...] Heart / Thorax RVOT view. LVOT view. 2-fikmjw-aqdiytp view. Bicaval view.Ductal arch view. Extremities / [...] as necessary. Authorizing ProviderResult TypeResult StatusMadhuri Monroy MDIMYomaira ORDERABLESFinal Result * 2nd hr Glucose Tolerance 100 gm load (08/15/2025)ComponentValueRef RangeTest MethodAnalysis TimePerformed AtPathologist SignatureGlucose Tolerance Test 2 Chzl636IUMLXFTP TRANSCRIBED RESULTSSpecimen (Source)Anatomical Location / LateralityCollection Method / VolumeCollection TimeReceived TimeBloodVenous blood / Unknown Narrative Authorizing ProviderResult TypeResult StatusNot In System VOIQLAB BLOOD ORDERABLESFinal ResultPerforming OrganizationAddressCity/State/ZIP CodePhone Number MANUALLY TRANSCRIBED RESULTS * Glucose tolerance, 1 hour (08/15/2025)ComponentValueRef RangeTest Method Analysis TimePerformed AtPathologist SignatureGlucose Tolerance Test 1 Mcnp383 MANUALLY TRANSCRIBED RESULTSSpecimen (Source)Anatomical Location / Laterality Collection Method / VolumeCollection TimeReceived TimeBloodVenous blood / Unknown Narrative Authorizing ProviderResult TypeResult StatusNot In System VOIQLAB BLOOD ORDERABLESFinal ResultPerforming OrganizationAddressCity/State/ZIP CodePhone Number MANUALLY TRANSCRIBED RESULTS * Glucose tolerance, 3 hours (08/15/2025)ComponentValueRef RangeTest Method Analysis TimePerformed AtPathologist SignatureGlucose Tolerance Test 3 Dojt208 MANUALLY TRANSCRIBED RESULTSSpecimen (Source)Anatomical Location / Laterality Collection Method / VolumeCollection TimeReceived TimeBloodVenous blood / Unknown Narrative Authorizing ProviderResult TypeResult StatusNot In System VOIQLAB BLOOD ORDERABLESFinal ResultPerforming OrganizationAddressCity/State/ZIP CodePhone Number MANUALLY TRANSCRIBED RESULTS * Glucose, tolerance fasting (08/15/2025)ComponentValueRef RangeTest Method Analysis TimePerformed AtPathologist SignatureGlucose Tolerance Test Ssyqzou53 MANUALLY TRANSCRIBED RESULTSSpecimen (Source)Anatomical Location / Laterality [...] TimePerformed AtPathologist SignatureGlucose, 1 hr PP 50GM bdln114 MANUALLY TRANSCRIBED RESULTSSpecimen (Source)Anatomical Location / Laterality [...] ID:Not on file Type:Not on file Address: [place] [id number] Care Teams Team MemberRelationshipSpecialtyStart DateEnd Cruz Rodríguez MD [address] [place] [address] PCP - GeneralFamily Medicine12/02/18
--- OUTSIDE RECORDS SUMMARY | 2025-09-26 11:00 | XMS_ITS | Encounter Summary ---
Author Organization [facility] tem Address [id number] [address] [place] [address] Care Team Providers Care Broom Builder Name Role Phone Cruz Rodríguez MD Primary Care Provider [phone] Encounter Details DateTypeDepartmentCare Team (Latest Contact Info)Rcxtpdvsfos71/23/2025Orders Only Maternal- Medicine at [facility] [address] [place] [phone] Camila Arciniega, [facility] [address] [facility], [address] [place] [address] Essential hypertension affecting in third trimester Social [...] or more drinks on one occasion?Never5ChildcareAnswer Date QmmeoykhRfeeayenuOxufchw28/13/2019EmploymentAnswerDate RecordedEmployment Vzismcg80/13/2019Hunger ScreeningAnswerDate RecordedWithin the past 12 months we worried whether our food would run out before we got money to buy more.Never True09/10/2025Within the past 12 months the food we bought just didn't last and we didn't have money to get more.Never True09/10/2025Purpose - LifeAnswerDate RecordedPurpose and direction in sngdYjdogga23/11/2021Estimated Date of NdqekuhdUvgwqfecUsh60/03/2026Based on last menstrual period of 02/21/2025 (Exact Date)Sex and Gender InformationValueDate RecordedSex Assigned at BirthNot on fileLegal TrzLxukin30/07/2019 2:55 PM ESTGender IdentityNot on fileSexual OrientationNot on filedocumented as of this encounter Plan of Treatment DateTypeDepartmentCare Team (Latest Contact Info)Amttwdcibbk05/10/2025 3:00 PM ESTTelemedicine Maternal- Medicine at [facility] [address] [place] [address] Kayleigh Rizzo PA-C [address] [address] 10/08/2025 8:00 AM ESTAppointment Maternal Medicine [place] [address] [facility] [address] [place] [address] documented as of this encounter Visit Diagnoses Diagnosis Essential hypertension affecting in third trimester documented in this encounter Care Teams Team MemberRelationshipSpecialtyStart DateEnd Date Cruz Rodríguez MD [address] [place] [address] PCP - GeneralFamily Medicine12/02/18documented as of this encounter
--- OUTSIDE RECORDS SUMMARY | 2025-09-26 11:00 | XMS_ITS | Encounter Summary ---
Author Organization [facility] Address [address] [place] [address] Care Team Providers Care Television Announcer Name Role Phone RubyEliceo Bryant DAY Primary Care Provider [phone] Ruby Eliceo Hurtado DO Unavailable [phone] Encounter Details DateTypeDepartmentCare Team (Latest Contact Info)Uophuipcxle20/29/2025Travel Social History Tobacco UseTypesPacks/DayYears UsedDateSmoking Tobacco: NeverSmokeless Tobacco: NeverAlcohol UseStandard Drinks/WeekCommentsNever0 (1 standard drink = 0.6 oz pure alcohol)caffeine: 1-2 cups per day, coffee and flvB6834 Health Literacy AnswerDate RecordedHow often do you [...] relatives?Once a week12/29/2024How often do you attend rastafari or taoism services?Patient wtcigzmu14/03/2025Do you belong to any clubs or organizations such as rastafari groups, unions, fraternal or athletic leodan ups, or school groups?No12/29/2024How often do you attend meetings of the clubs or organizations you belong to?Patient mlllormx01/03/2025re you , , , , never , [...] Health Questionnaire-2 Score0 07/30/2025[facility] [place] of Occupational Health - Occupational Stress QuestionnaireAnswerDate RecordedDo you feel stress - tense, restless, nervous, or anxious, or unable to sleep at night because yourmind is troubled all the time - these days?Only a vudsyr8412/29/2024Exercise Vital SignAnswerDate Recorded On average, how many [...] steady place to sleep or slept in [facility] (including now)?No09/19/2023Housing Stability Vital SignAnswerDate RecordedIn the last 12 months, was there a time when you were not able to pay the mortgage or rent on time?No12/29/2024Number of Times Moved in the Last YearNot on file12/29/2024t any time in the past 12 months, were you homeless or living in a chcf (including now)?No12/29/2024 EducationAnswerDate RecordedWhat is the highest level of school you have completed or the highest degree you have received?High school mdnypapu81/29/2023 Estimated Date of JuqcmdltDcqvxzgvDcu61/03/2026ased on last menstrual period of 02/21/2025Sex and Gender InformationValueDate RecordedSex Assigned at BirthNot on fileLegal HojNgkjwh37/15/2023 7:18 PM EDTGender IdentityNot on file Sexual OrientationNot on 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 Not on fileNot on fileNot on filedocumented as of this encounter Plan of Treatment DateTypeDepartmentCare Team (Latest Contact Info)Ingwxwogwcv72/05/2025 3:00 PM ESTRoutine [facility] [place] [facility] [address] [place] [address] Nathan Pop, DO [address] [place] [address] [place] [address] documented as of this encounter Visit Diagnoses Not on filedocumented in this encounter Care Teams Team MemberRelationshipSpecialtyStart DateEnd Date Eliceo Beltran DO [address] [place] [address] PCP - GeneralFamily Medicine02/14/24 Eliceo Beltran DO [address] [place] [address] PCP - Medical [place] [employer]07/27/2412documented as of this encounter
[2025-09-26 11:03] VITALS: TEMP 36.9
[2025-09-26 11:07] VITALS: BP 128/63; PULSE 98
--- NOTE | 2025-09-26 11:45 | US_ITS ---
[address] [address] Patient Name: JUHI HOPE MRN: [id number] date: 1995 Sex: F Assigned Patient Location: US Current Patient Location: Accession/Order Number: [id number] Exam Date: 09/26/2025 11:50 Report Date: 09/26/2025 14:50 At the request of: MARBELLA HUNTER Procedure: US OB BPP w non-stress Ultrasound biophysical profile INDICATION: -induced hypertension COMPARISON: 09/19/2025 FINDINGS IMPRESSION: Cephalic position. 8 out of 8 score biophysical profile. LEONEL 11.6 cm. heart 129 bpm Impression dictated by: Chu Amaya M.D. 09/26/2025 2:50 PM Dictation Location: [employer] CorporationFORMERLY [facility]ITALMedia[facility],Inc Electronically authenticated by: [id number] Y Date: 09/26/2025 14:50
== END 2025-09-26 12:09 | disposition home or self-care (01) ==
LOC: US 10:56 → FBC 10:58
PROVIDERS: Family Provider Family Medicine; PCP Family Medicine; Visit Provider Nurse Practitioner Family
DX: O24.419 Gestational diabetes mellitus in pregnancy, unspecified control (principal); O13.9 Gestational [pregnancy-induced] hypertension without significant proteinuria, unspecified trimester; Z3A.31 31 weeks gestation of pregnancy
CPT/HCPCS: 76818

== ENCOUNTER 2025-09-30 16:16 | Outpatient (OUT) | payer OTHER, SELFPAY ==
--- OUTSIDE RECORDS SUMMARY | 2025-09-30 16:27 | XMS_ITS | CCD ---
Author Organization [facility] Care Team Providers Care Prepress Proofer Name Role Phone Unavailable Unavailable OPAL LARA Referring Unavailable DENNY RODRÍGUEZ Primary Care Unavailable OPAL LARA Referring Unavailable DENNY RODRÍGUEZ Primary Care Unavailable DENNY RODRÍGUEZ Primary Care Physician [phone] Domo Hodges Unavailable PAOLO DIALLO Attending Unavailable KATHE RYDER Admitting Unavailable KATHE RYDER Attending Unavailable Denny Rodríguez MD Primary Care Provider Denny Rodríguez MD Unavailable [phone] Denny Rodríguez MD Primary Care Provider [phone] Denny Rodríguez MD Unavailable Kita CURTAIN DRIER, Zenobia Unavailable Keesha CURTAIN DRIER, Trista R Unavailable [phone] Denny Rodríguez MD Primary Care Provider [phone] CHARLENE RODRIGUEZ Referring Unavailable RODRÍGUEZ, DENNY SAHIL [...] Unavailab Denny Ross MD Primary Care Provider [phone] Kiesha DO, Nathan Attending Provider Kiesha, Nathan Admitting Unavailable Kiesha, Nathan Attending Unavailable Denny Rodríguez Primary Care Unavailable KIESHA, Nathan R Attending Unavailable KIESHA, Nathan R Referring Unavailable KIESHA, Nathan R Admitting Unavailable KIESHA, Nathan R Attending Unavailable KIESHA, Nathan R Admitting Unavailable Kaftan DO Eliceo R Unavailable Yomaira BELTRAN Attending Unavailable KAFTANYomaira Admitting Unavailable KIESHA, Nathan R Attending Unavailable KIESHA, Nathan R Admitting Unavailable KIESHA, Nathan R Admitting Unavailable KIESHA, Nathan R Attending Unavailable KAYomaira BUNDY Admitting Unavailable KAFTANYomaira Attending Unavailable KAYomaira BUNDY Admitting Unavailable KAFTAN, Yomaira COOPER Attending Unavailable Denny Rodríguez MD Primary Care Provider STEPH KEANE Attending Unavailable STEPH KEANE Admitting [...] Unavailable Denny Rodríguez MD Primary Care Provider [phone] KIESHA, NATHAN R Referring Unavailable DENNY RODRÍGUEZ [...] POP Attending Unavailable Denny Rodríguez MD Unavailable [phone] Denny Rodríguez MD Primary Care Provider [phone] Denny Rodríguez MD Unavailable Kita CURTAIN DRIER, Zenobia Unavailable Keesha CURTAIN DRIER, Trista R Unavailable [phone] Allergies Allergy ClassificationReported Allergen(s)Allergy TypeDate of OnsetReaction(s) Facility (4 sources)No Known Medication Allergies; Translations: [No Known Medication Allergies]Propensity to adverse reactions (disorder)[facility] Repository Medications Current Medications MedicationDrug Class(es)DatesSig (Normalized)Sig (Original)acetaminophen 325 mg / butalbital 50 mg / caffeine 40 mg oral tablet (14 sources)Barbiturate, Central Nervous System Stimulant, MethylxanthineStart: 02-19-2024 End: 16-58-6286denf 1 tablet by mouth every six hours for headache nishumxjhb-uhlpsvzygzwxr-nophohdk 50-325-40 MG tablet Indications: Other migraine without status migrainosus, not intractable Take 1 tablet by mouth every 6 (six) hours if needed for headaches 20 tablet 02/19/2024 05/01/2025 Discontinuedatenolol 25 mg oral tablet (4 sources)beta-Adrenergic BlockerStart: 71-28-1715huby 1 mg by mouth once daily atenolol 25 mg Tab mg tab(s), Oral, Daily, Refills(s) 0 Start Date: 02/02/21 Status: OrderedStart: 08-06-2017 End: 21-34-8026ftlf 1 tablet by mouth once dailyAtenolol 50 mg tablet Discontinued 50 MG PO Daily August 06, 2017 12:00am October 16, 2018 3 :34pmbaclofen suppository 10 mg (CPD) (8 sources)Start: 29-86-9518hblhdlog suppository 10 mg (CPD) Indications: High- tone pelvic floor dysfunction , Chronic pelvic pain in female Unwrap and insert one suppository vaginally daily at bedtime. 30 Suppository 2 08/24/2023 Active Comment on above:Unwrap and insert one suppository vaginally daily at bedtime. Blood Glucose Monitoring Suppl (D-Care Glucometer) w/Device kit (17 sources)Start: 08-20-2025 End: 76-11-2497Odauq Glucose Monitoring Suppl (D-Care Glucometer) w/Device kit Indications: Gestational diabetes mellitus (GDM), antepartum, gestational diabetes method of control unspecified ([facility]) , Elevated glucose tolerance test 1 kit Daily Use four times daily to check FSBS. In the morning prior to breakfast & 1 hour after each meal for a total of 4times daily. 1 kit 08/20/2025 08/20/2026 Activecephalexin 500 mg oral capsule (6 sources)Cephalosporin AntibacterialStart: 02-14-2021 End: 64-01-3493avtw 1 capsule by mouth every twelve hoursKeflex 500 mg Cap 500 mg = 1 cap(s), Oral, q12hr, X 7 day(s), # 14 cap(s), Refills(s) 0 Start Date: 07/14/22 Stop Date: 07/21/22 Status: OrderedStart: 03-14-2019 End: 98-23-1101hmna 1 capsule by mouth every twelve hoursCephalexin (Keflex) 500 mg capsule Discontinued 500 MG PO Q12H 14 7 March 14, 2019 12:00am August 04, 2019 8:18amcyclobenzaprine hydrochloride 5 mg oral tablet (20 sources)Muscle RelaxantStart: 12-30-2024 End: 48-80-6734qibq 1 tablet by mouth in the morning, [...] 30 tablet 12/30/2024 01/09/2025 ActiveStart: 05-01-2023 End: 16-00-4844aiqf 1 tablet by mouth at bedtime as neededcyclobenzaprine (FLEXERIL) 5 mg tablet Indications: Dysmenorrhea , Chronic pelvic pain in female Take 1 tablet by mouth at bedtime as needed. 30 tablet 1 05/01/2023 ActiveStart: 30-38-9845hrhi 1 tablet by mouth three times daily as needed for muscle spasms cyclobenzaprine 10 mg Tab 10 mg = 1 tab(s), Oral, TID, PRN for spasm, # 30 tab(s), Refills(s) 0, Pharmacy: [facility] 858, 157, cm, 01/23/22 7:20:00 EST, Height/Length Dosing, 55, kg, 01/23/22 7:20:00 EST, Weight Dosing Start Date: 01/23/22 Status: Ordered Quantity: 30.0 Unit: tab(s) Repeat number: 1 Comment on above:Take 1 tablet by mouth at bedtime as needed.cyproheptadine hydrochloride 4 mg oral tablet (10 sources)Start: 58-46-7853pjvo 1 mg by mouth three times dailycyproheptadine 4 mg Tab mg tab(s), Oral, TID, Refills(s) 0 Start Date: 02/02/21 Status: Ordered Repeat number: 1Dasetta oral tablet (1 source)Start: 32-31-5501gmyr 1 tablet by mouth once dailyDasetta oral tablet 1 tab(s), Oral, Daily, Refill(s) 0, control/menstrual regulation Start Date: 11/23/16 Status: Ordereddocusate sodium 100 mg oral capsule (7 sources)Start: 11-30-2022 End: 24-43-4726xytb 1 capsule by mouth twice daily as needed for constipation Docusate Sodium (DSS) 100 MG capsule Take 1 capsule (100 mg) by mouth 2 times daily as needed for constipation (Vaginal Delivery) for up to 10 days. 60 capsule 0 12/01/2022 12/31/2022 ActiveStart: 07-14-2022 End: 64-11-9067sjox 1 capsule by mouth twice dailyColace 100 mg Cap 100 mg = 1 cap(s), Oral, BID, X 10 day(s), # 20 cap(s), Refills(s) 0 Start Date: 07/14/22 Stop Date: 07/24/22 Status: Orderedelagolix 150 mg oral tablet (13 sources)Start: 07-16-2023 End: 29-36-1923zncm 1 tablet by mouth once dailyelagolix (ORILISSA) 150 mg tablet Take 1 tablet (150 mg) by mouth once daily. 30 tablet 11 07/16/2023 07/15/2024 ActiveStart: 77-24-6766cceg 1 tablet by mouth twice dailyOrilissa 200 MG Oral Tablet take 1 tablet by mouth twice a day Quantity: 60 Refills: 4 Ordered: 09-Feb-2022 Charlene Rodriguez DO Start : 09-Feb-2022 ActiveComment on above:Take 1 tablet (150 mg) by mouth once daily.ergocalciferol 0.05 mg oral capsule (1 source)Provitamin D2 CompoundStart: 19-12-9669Vcndjkc D2 2000 intl units oral capsule Oral, Daily, Refills(s) 0 Start Date: 02/02/21 Status: OrderedEthinyl Estradiol / Levonorgestrel (8 sources)Progestin, Estrogen, Progestin-containing Intrauterine DeviceStart: 04-03-2024 End: 48-83-5159nccwyjztxzjfoa-ethinyl estradiol (Jolessa) 0.15-0.03 MG tablet Indications: Uses control TAKE1 TABLET BY MOUTH EVERY MORNING 91 tablet 3 04/03/2024 08/18/2024 Discontinued (Other)Start: 19-07-5064pobyfplvfcdscz- ethinyl estradiol (Jolessa) 0.15-0.03 MG tablet Indications: Uses control TAKE1 TABLET BY MOUTH EVERY MORNING 91 tablet 3 04/03/2024 ActiveStart: 01-10-2024 End: 47-44-7500rkkb 1 tablet by mouth in the morning, then take 1 tablet by mouth once dailylevonorgestrel-ethinyl estradiol (Jolessa) 0.15-0.03 MG tablet Indications: Uses control Take1 tablet by mouth in the morning. Take 1 tablet by mouth daily. 90 tablet 0 01/10/2024 04/09/2024 Activeethinyl estradiol 0.035 mg / norgestimate 0.25 mg oral tablet (4 sources)Progestin, EstrogenStart: 26-43-4241lwowcvyfwofk-ethinyl estradiol (Ortho-Cyclen) 0.25-35 MG-MCG tablet 1 (one) time each day at the same time. 0 01/15/2023 ActiveStart: 09-85-7130rozm 1 tablet by mouth once dailyNorgestimate- Ethinyl Estradiol 0.25-35 mg-mcg tablet Active 1 TAB PO Daily August 04, 2019 12:00amMono-Linyah 0.25-35 MG-MCG Oral for 28 Not-TakinghydrOXYzine hydrochloride 25 mg oral tablet (10 sources)AntihistamineStart: 80-21-2117duom 1 mg by mouth four times daily hydrOXYzine hydrochloride 25 mg Tab mg tab(s), Oral, QID, Refills(s) 0 Start Date: 02/02/21 Status: Ordered Repeat number: 1hyoscyamine sulfate 0.125 mg oral tablet (10 sources)Start: 49-61-7224yguh 1 tablet by mouth every six hoursLevsin 0.125 mg SL Tab 0.125 mg = 1 tab(s), Oral, q6hr, # 20 tab(s), Refills(s) 1, Pharmacy: [facility]58, 161, cm, 03/10/21 11:21:00 EDT, Height/Length Dosing, 56, kg, 03/10/21 11:21:00 EDT, Weight Dosing Start Date: 03/10/21 Status: Ordered Quantity: 20.0 Unit: tab(s) Repeat number: 2ibuprofen 600 mg oral tablet (15 sources)Nonsteroidal Anti-inflammatory DrugStart: 01-23-2022 End: 79-70-6983jjsf 1 tablet by mouth every six hoursibuprofen 600 mg Tab 600 mg = 1 tab(s), Oral, q6hr, # 40 tab(s), Refills(s) 0, [facility]acy: [facility], 157, cm, 01/23/22 7:20:00 EST, Height/Length Dosing, 55, kg, 01/23/22 7:20:00 EST, WeightDosing Start Date: 01/23/22 Status: Ordered Quantity: 40.0 Unit: tab(s) Repeat number: 1insulin glargine-yfgn (Semglee-yfgn) 100 UNIT/ML pen (5 sources)Start: 97-94-7689qssxcmm glargine-yfgn (Semglee-yfgn) 100 UNIT/ML pen Inject 13 Units under the skin at bedtime 09/15/2025 Activeinsulin glargine-yfgn 100 unit/mL (3 mL) insulin pen (14 sources)Start: 14-84-4398eoxahry glargine-yfgn 100 unit/mL (3 mL) insulin pen Indications: Essential hypertension affecting in third trimester Prime with 2 units and give 5 units every morning and 23 units subQ at bedtime. 15 mL 3 09/28/2025 ActiveStart: 09-21-2025 End: 49-16-3641rlqejtj glargine-yfgn 100 unit/mL (3 mL) insulin pen Indications: Essential hypertension affecting in third trimester Prime with 2 units and give 5 units every morning and 20 units subQ at bedtime. 15 mL 3 09/21/2025 09/28/2025 DiscontinuedStart: 47-08-0056wyghhma glargine-yfgn 100 unit/mL (3 mL) insulin pen Indications: Essential hypertension affecting in third trimester Prime with 2 units and give 5 units every morning and 20 units subQ at bedtime. 15 mL 3 09/21/2025 ActiveStart: 09-17-2025 End: 23-88-9756rjcvcah glargine-yfgn 100 unit/mL (3 mL) insulin pen Indications: Essential hypertension affecting in third trimester Prime with 2 units and give 5 units every morning and 17 units subQ at bedtime. 15 mL 3 09/17/2025 09/21/2025 DiscontinuedStart: 64-45-6750hgvuecf glargine-yfgn 100 unit/mL (3 mL) insulin pen Indications: Essential hypertension affecting in third trimester Prime with 2 units and give 5 units every morning and 17 units subQ at bedtime. 15 mL 3 09/17/2025 ActiveStart: 09-15-2025 End: 07-80-0635txmjena glargine-yfgn 100 unit/mL (3 mL) insulin pen Indications: Essential hypertension affecting in third trimester Prime with 2 units and give 17 units subQ at bedtime. 15 mL 3 09/15/2025 09/17/2025 Discontinued Start: 75-82-9614vmbsfma glargine-yfgn 100 unit/mL (3 mL) insulin pen Indications: Essential hypertension affecting in third trimester Prime with 2 units and give 17 units subQ at bedtime. 15 mL 3 09/15/2025 ActiveStart: 09-10-2025 End: 13-01-4254gcnkhmn glargine-yfgn 100 unit/mL (3 mL) insulin pen Indications: Essential hypertension affecting in third trimester Prime with 2 units and give 13 units subQ at bedtime. 15 mL 3 09/10/2025 09/15/2025 Discontinued Start: 13-96-2388mffrtof glargine-yfgn 100 unit/mL (3 mL) insulin pen Indications: Essential hypertension affecting in third trimester Prime with 2 units and give 13 units subQ at bedtime. 15 mL 3 09/10/2025 ActiveStart: 09-04-2025 End: 16-91-8712limihn 2 [IU] by subcutaneous injection once, then inject 10 [IU] by subcutaneous injection at bedtimeinsulin glargine-yfgn 100 unit/mL (3 mL) insulin pen Indications: Diet controlled gestational diabetes mellitus (GDM) in second trimester , Essential hypertension affecting in third trimester Prime with 2 units and give 10 units subQ at bedtime. 15 mL 3 09/04/2025 09/10/2025 DiscontinuedStart: 28-56-7368kztvkr 2 [IU] by subcutaneous injection once, then inject 10 [IU] by subcutaneous injection at bedtimeinsulin glargine- yfgn 100 unit/mL (3 mL) insulin pen Indications: Diet controlled gestational diabetes mellitus (GDM) in second trimester , Essential hypertension affecting in third trimester Prime with 2 units and give 10 units subQ at bedtime. 15 mL 3 09/04/2025 Activeisopropyl alcohol 0.7 ml/ml medicated pad (17 sources)Start: 91-63-1376Ycfaxgr Swabs (Alcohol Prep Pad) 70 % pads Indications: Gestational diabetes mellitus (GDM), antepartum, gestational diabetes method of control unspecified ([facility]) , Elevated glucose tolerance testApply 1 Pad topically Daily Use four times daily to check FSBS. 150 each 3 08/20/2025 Activeiv contrast (will be provided with radiology test) (12 sources)Start: 57-03-9946zi contrast (will be provided with radiology test) [...] 200 mg oral tablet (20 sources)beta-Adrenergic BlockerStart: 62-40-0774eepi 1 tablet by mouth in the morninglabetalol (Normodyne) 200 MG tablet Indications: Gestational Hypertension Take 1 tablet (200 mg) bymouth in the morning and 1 tablet (200 mg) before bedtime. 60 tablet 3 09/03/2025 ActiveStart: 07-30-2025 End: 02-40-8167bfct 1 tablet by mouth in the morninglabetalol (Normodyne) 100 MG tablet Indications: Hypertension, unspecified type Take 1 tablet (100 mg) by mouth in the morning and 1 tablet (100 mg) before bedtime. 60 tablet 5 07/30/2025 09/03/2025 DiscontinuedStart: 11-28-2022 End: 44-30-3575tudlhyyac (Normodyne,Trandate) injection 20 mgStart: 11-28-2022 End: 42-34-0492qlgyvojjc (Normodyne,Trandate) injection 20 mgStart: 11-28-2022 End: 83-58-8740mdinbqrio (Normodyne,Trandate) 5 MG/ML injection - Pyxis ADS Override Pulltake 2 tablets by mouth three times dailylabetaloL (NORMODYNE) 100 mg tablet Take 2 tablets (200 mg total) by mouth 3 (three) times a day. Active magnesium oxide 400 mg oral tablet (9 sources)Start: 05-01-2025 End: 34-71-4859csrs 1 tablet by mouth once dailymagnesium oxide (Mag-Ox) 400 MG tablet Indications: headache in first trimester ([facility])Take 1 tablet (400 mg) by mouth Daily 30 tablet 3 05/01/2025 05/31/2025 Activemeloxicam 15 mg oral tablet (15 sources)Nonsteroidal Anti-inflammatory DrugStart: 02-02-2021 End: 44-22-5914dapf 1 tablet by mouth once dailymeloxicam (Mobic) 15 MG tablet Indications: Chronic right shoulder pain , Scapular dyskinesis Take 1 tablet (15 mg) by mouth Daily 30 tablet 3 12/30/2024 05/01/2025 Ditrowajnhpw49 hr metoprolol succinate 25 mg extended release oral tablet (20 sources)beta-Adrenergic BlockerStart: 10-15-2024 End: 72-84-0096cbqi 1 tablet by mouth once dailymetoprolol succinate XL (Toprol- XL) 25 MG 24 hr tablet Indications: Hypertension, unspecified type Take 1 tablet by mouth daily 90 tablet 1 12/30/2024 ActiveStart: 17-46-9623fgwm 1 tablet by mouth once dailymetoprolol succinate XL (Toprol-XL) 25 MG 24 hr tablet Indications: Hypertension, unspecified type (CMS/HCC) Take 1 tablet by mouth daily 90 tablet 1 04/23/2024 ActiveStart: 99-21-4078wutj 1 tablet by mouth once dailymetoprolol succinate XL (Toprol-XL) 25 MG 24 hr tablet Indications: Hypertension, unspecified type (CMS/HCC) Take 1 tablet by mouth daily 90 tablet 1 10/23/2023 ActiveStart: 02-27-2023 End: 58-90-3275ismtpvdrvn succinate ER (TOPROL XL) 25 mg 24 hr tabletnaproxen 500 mg delayed release oral tablet (20 sources)Nonsteroidal Anti-inflammatory DrugStart: 84-58-6723zgvk 1 tablet by mouth twice dailynaproxen 500 mg oral enteric coated tablet 500 mg = 1 tab(s), Oral, BID, # 28 tab(s), Refills(s) 0 Start Date: 11/07/21 Status: Ordered Quantity: 28.0 Unit: tab(s) Repeat number: 1Start: 03-04-2021 End: 44-29-9478zqcc 1 tablet by mouth twice dailynaproxen 500 mg Tab 500 mg = 1 tab(s), Oral, BID, Take one tab by mouth two times a day, # 14 tab(s), Refills(s) 0, Pharmacy: [facility] 858, 157, cm, 03/04/21 7:22:00 EDT, Height/Length Dosing,52, kg, 03/04/21 7:22:00 EDT, Weight Dosing Start Date: 03/04/21 Status: Ordered Quantity: 14.0 Unit:tab(s) Repeat number: 1Start: 11-02-2018 End: 47-38-2201dqhb 1 tablet by mouth twice daily as [...] (5 sources)Dihydropyridine Calcium Channel BlockerStart: 11-28-2022 End: 56-83-5011RSSIsuxgfk XL (Procardia XL) 30 MG 24 hr tablet Take 1 tablet (30 mg) by mouth daily. Do not crush,chew, or split. Do not start before December 02, 2022. 90 tablet 0 12/02/2022 12/02/2023 Activenorethindrone acetate 5 mg oral tablet (20 sources)Start: 05-17-2023 End: 81-49-7210qjcu 2 tablets by mouth once dailynorethindrone (AYGESTIN) 5 mg tablet Take 2 tablets by mouth once daily. 60 tablet 5 01/03/2024 07/01/2024 ActiveStart: 04-11-2023 End: 74-31-2297frbf 1 tablet by mouth once dailynorethindrone (AYGESTIN) 5 mg tablet Take 1 tablet by mouth once daily. 30 tablet 11 04/11/2023 ActiveStart: 51-86-6248xxek 1 tablet by mouth once dailyNorethindrone Acetate 5 MG Oral Tablet TAKE 1 TABLET DAILY. Quantity: 1 Refills: 0 Ordered: 21-Jul-2020 Charlene Rodriguez DO Start : 21-Jul-2020 ActiveComment on above:Take 1 tablet by mouth once daily.Take 2 tablets by mouth once daily.PNV no.95-ferrous fumarate-FA () 28 mg iron- 800 mcg tablet (13 sources)take 1 tablet by mouth in the morningPNV no.95-ferrous fumarate-FA () 28 mg iron- 800 mcg tablet Take 1 tablet by mouth in the morning. Activepramoxine hydrochloride 10 mg/ml rectal foam (2 sources)Start: 07-14-2022 End: 49-36-2689rauz 15 g rectal route twice dailyProctoFoam 1% Foam apply, Rectal, BID for 7 day(s), 15 gm, Refill(s) 0 Start Date: 07/14/22 Stop Date: 07/21/22 Status: OrderedPrenatal Multivitamins with Vitamin B Complex, Vitamin C, Minerals and L-Methylfolate oral capsule (9 sources)Start: 32-74-0448Axtjazyz Multivitamins with Vitamin B Complex, Vitamin C, Minerals and L-Methylfolate oral capsule 1 cap(s), Oral, Daily, 30 cap(s), Refill(s) 0 Start Date: 07/14/22 Status: Ordered Quantity: 30.0 Unit: cap(s) Repeat number: 1Start: 10-33-5010Mthraesi Multivitamins with Vitamin B Complex, Vitamin C, Minerals and L-Methylfolate oral capsule 1 cap(s), Oral, Daily, 30 cap(s), Refill(s) 0 Start Date: 07/14/22 Status: OrderedPrenatal Vit-Fe Fumarate-FA ( Vitamin) 27-0.8 MG tablet (3 sources) Vit-Fe Fumarate-FA ( Vitamin) 27-0.8 MG tablet Take by mouth. 0 ActivePrenatal Vit-Fe Fumarate-FA ( Vitamins) 28-0.8 MG tablet (20 sources)Start: 05-01-2025 End: 00-71-0891lyfr 1 tablet by mouth once dailyPrenatal Vit-Fe Fumarate-FA ( Vitamins) 28-0.8 MG tablet Indications: , unspecified gestational age ([facility]) , Encounter for supervision of normal first in first trimester([facility]) Take 1 tablet by mouth Daily 30 tablet 11 05/01/2025 05/01/2026 ActiveStart: 05-01-2025 End: 10-64-2810dqxe 1 tablet by mouth once dailyPrenatal Vit-Fe Fumarate-FA ( Vitamins) 28-0.8 MG tablet Indications: , unspecified gestational age , Encounter for supervision of normal first in first trimester Take 1 tablet by mouth Daily 30 tablet 11 05/01/2025 05/01/2026 Active SUMAtriptan 100 mg oral tablet (10 sources)Serotonin-1b and Serotonin-1d Receptor AgonistStart: 22-00-5747jvnf 1 mg by mouth onceImitrex 100 mg Tab mg tab(s), Oral, Once, Refills(s) 0 Start Date: 02/02/21 Status: Ordered Repeat number: 1Surgical Lubricant Jelly gel (12 sources)Start: 76-08-8655Ueoxtyog Lubricant Jelly gel For MRI Female Pelvis, MRI department to provide. Administer intra-vaginal Surgilube immediately prior the MRI procedure (total amount to patient toleranace). 1 g 0 05/17/2023 Active Comment on above:For MRI Female Pelvis, MRI department to provide. Administer intra-vaginal Surgilube immediately prior the MRI procedure (total amount to patient toleranace).tiZANidine 4 mg oral tablet (3 sources)Central alpha-2 Adrenergic AgonistStart: 52-53-7636yswa 1 mg by mouth every eight hourstiZANidine 4 mg Tab mg tab(s), Oral, q8hr, Refills(s) 0 Start Date: 02/02/21 Status: OrderedtraMADol hydrochloride 50 mg oral tablet (10 sources)Opioid AgonistStart: 86-98-7845mcbr 1 tablet by mouth every four hours as needed for paintraMADol (ULTRAM) 50 mg tablet Indications: Pelvic pain in female Take 1 tablet by mouth every 4 hours as needed for pain. 20 tablet 0 08/30/2023 ActiveStart: 78-85-0485gnal 1 tablet by mouth every six hourstraMADol HCl - 50 MG Oral Tablet TAKE 1 TABLET Every 6 hours Quantity: 20 Refills: 0 Ordered: 18-Aug-2020 Charlene Rodriguez DO Start : 18-Aug-2020 ActiveStart: 03-12-2019 End: 09-97-7258vjuv 1 tablet by mouth every four hours as needed for pain Tramadol 50 mg tablet Discontinued 50 MG PO Q4H as needed for pain 30 5 March 12, 2019 12:00am August 04, 2019 8:19amComment on above:Take 1 tablet by mouth every 4 hours as needed for pain.Vitamin D2 2000 intl units oral capsule (9 sources)Start: 34-55-2060kcpq 1 capsule by mouth once dailyVitamin D2 2000 intl units oral capsule Oral, Daily, Refills(s) 0 Start Date: 02/02/21 Status: Ordered Repeat number: 1Start: 56-58-2061Ssbdxzw D2 2000 intl units oral capsule Oral, Daily, Refills(s) 0 Start Date: 02/02/21 Status: Ordered Completed/Discontinued Medications MedicationDrug Class(es)DatesSig (Normalized)Sig (Original)acetaminophen 325 mg oral tablet (4 sources)Start: 11-30-2022 End: 93-82-7848fugs 1 tablet by mouth every six hours as needed for gzlw722 mg, Oral, Every 6 hours PRN, mild pain (1-3), Starting on Constance 11/30/22 at 0422 Give in addition to any other pain medication ordered at same time for any pain indication. Maximumdose of acetaminophen is 4000 mg from all sources in 24 hours. Alternate ibuprofen and acetaminophen every 3 hours.Start: 11-28-2022 End: 14-65-6493eqhpeopboyddt (Tylenol) tablet 1,000 mgacetaminophen 300 mg / codeine phosphate 30 mg oral tablet (4 sources)Opioid AgonistStart: 01-19-2025 End: 11-53-4114lvrc 1 tablet by mouth every six hours for painacetaminophen- codeine (Tylenol w/ Codeine #3) 300-30 MG tablet Indications: Pain in female genitalia on intercourse , Endometriosis Take 1 tablet by mouth every 6 (six) hours if needed for severe pain for up to 5 days 20 tablet 01/19/2025 01/24/2025 ExpiredStart: 07-22-2024 End: 56-50-6994glnq 1 tablet by mouth every six hours for painacetaminophen- codeine (Tylenol w/ Codeine #3) 300-30 MG tablet Indications: Dysmenorrhea, unspecified Take 1 tablet by mouth every 6 (six) hours if needed for severe pain for up to 5 days 20 tablet 07/22/2024 07/27/2024 Activeascorbic acid 500 mg oral tablet (5 sources)Vitamin CStart: 10-25-2018 End: 44-60-3479kgph 2 tablets by mouth in the morningASCORBIC ACID WITH ISAURO HIPS 500 MG tablet Take 2 tablets (1,000 mg total) by mouth in the morning.0 10/25/2018 09/04/2025 Discontinued ()aspirin 325 mg / butalbital 50 mg / caffeine 40 mg oral capsule (11 sources)Platelet Aggregation Inhibitor, Barbiturate, Nonsteroidal Anti- inflammatory Drug, Central Nervous System Stimulant, Methylxanthine End: 69-65-5640jjik 1 capsule by mouth every four hours as needed gxankcbarj-hcdokkt-pujsgjny (Fiorinal) 50-325-40 MG capsule Take 1 capsule [...] spray (2 sources)Standardized Chemical AllergenStart: 11-30-2022 End: 92-71-7687Ppdsduo, As needed, pain, , Starting on Constance 11/30/22 at 0608, Apply to perineal area. Patient is capable and may self administer at bedside.betamethasone 3 mg/ml / betamethasone acetate 3 mg/ml injectable suspension (2 sources)CorticosteroidStart: 11-28-2022 End: 76-88-3782rukqkgsewgmjm acetate-betamethasone sodium phosphate ([facility]) injection 12 mgcalcium chloride 0.0014 meq/ml / potassium chloride 0.004 meq/ml / sodium chloride 0.103 meq/ml / sodium lactate 0.028 meq/ml injectable solution (2 sources)Start: 11-28-2022 End: 18-49-8618ymba 125 mL intravenously every jllh296 mL/hr, IntraVENous, Continuous, Starting on Sun11/28/22 at 0100, Pre-Deliverycetirizine hydrochloride 10 mg oral tablet (17 sources)Histamine-1 Receptor AntagonistStart: 06-09-2025 End: 47-81-3281mejn 1 tablet by mouth once dailycetirizine (ZyrTEC ALLERGY) 10 MG tablet Indications: Allergy, sequela Take 1 tablet (10 mg) by mouth Daily 30 tablet 11 06/09/2025 07/15/2025 DiscontinuedchlordiazePOXIDE hydrochloride 5 mg / clidinium bromide 2.5 mg oral capsule (1 source)Anticholinergic, BenzodiazepineStart: 87-25-7481vwia 1 capsule by mouth every eight hourschlordiazePOXIDE-Clidinium 5-2.5 MG 1 capsule before meals Orally Three times a day for 30 day(s) May, Not-Taking chlorhexidine gluconate 20 mg/ml medicated pad (2 sources)Start: 11-28-2022 End: 45-06-6734ukfno 1 dose topically every six hoursTopical, Every 6 hours, First dose on Sun11/28/22 at 0100, Pre-Delivery Apply to the affected area.&a mp;nbsp; Clean entire abdomen.cholecalciferol 0.125 mg oral capsule (5 sources)Vitamin DStart: 10-25-2018 End: 74-13-3528swiz 1 capsule by mouth in the morningcholecalciferol, vitamin D3, (VITAMIN D3) 5,000 units capsule Take 1 capsule (5,000 Units total) bymouth in the morning. 0 10/25/2018 09/04/2025 Discontinued ()desogestrel 0.15 mg / ethinyl estradiol 0.03 mg oral tablet (11 sources)Progestin, EstrogenStart: 07-22-2024 End: 65-02-6860slkcrauiyuz-ethinyl estradiol (Apri) 0.15-30 MG-MCG tablet Indications: Dysmenorrhea, unspecified Take 1 tablet by mouth Daily 21 tablet 12 10/20/2024 01/19/2025 Discontinued (Other)diphenhydrAMINE (BENADryl) injection 25 mg (2 sources)Start: 11-30-2022 End: 17-07-5074mnwz 25 mg intravenously every six hours as neededdiphenhydrAMINE (BENADryl) injection 25 mgNorethindrone-E.Estradiol-Iron (1 source)EstrogenStart: 10-17-2017 End: 95-42-9852ygnx 1 tablet by mouth once dailyNorethindrone-E.Estradiol-Iron (Lo Loestrin Fe) 1 mg-10 mcg (24)/10 mcg (2) tablet Discontinued 1 TAB PO Daily October 17, 2017 1:00am March 12, 2019 6:15amEthinyl Estradiol / Norethindrone (7 sources)EstrogenStart: 12-01-2018 End: 23-71-6572xxzd 0.05 ug by mouth once in the eveningnorethindrone ac-eth estradiol (MICROGESTIN 1/20) 1-20 mg-mcg per tablet Take 1 tablet by mouth in t he evening. 0 12/01/2018 09/04/2025 Discontinued ()Start: 12-01-2018 take 0.05 ug by mouth once in the eveningnorethindrone ac-eth estradiol (MICROGESTIN 1/20) 1-20 mg-mcg per tablet Take 1 tablet by mouth in the evening. 0 12/01/2018 ActiveStart: 85-88-5385psuz 1 tablet by mouth once dailyDasetta oral tablet 1 tab(s), Oral, Daily, Refill(s) 0, control/menstrual regulation Start Date: 11/23/16 Status: Orderedfamotidine 20 mg oral tablet (2 sources)Histamine-2 Receptor AntagonistStart: 11-30-2022 End: 14-51-2264dgfa 20 mg by mouth twice daily as needed for gastroesophageal reflux eixdazd32 mg, Oral, 2 times daily PRN, heartburn, Starting on Constance 11/30/22 at 0608, Renal dose per pharmacy for peptic ulcer prophylaxis.ferrous sulfate 325 mg oral tablet (8 sources)Start: 11-30-2022 End: 15-94-2133yeot 325 mg by mouth twice daily at vzqyfeeh974 mg, Oral, 2 times daily with meals, First dose on Constance 11/30/22 at 0800, Start if Hgb le ss than 10. End: 83-17-2708ncdo 1 tablet by mouth in the morningFerrous Sulfate (IRON PO) Take 1 tablet by mouth in the morning. 09/16/2025 Discontinuedtake 1 tablet by mouth in the morningFerrous Sulfate (IRON PO) Take 1 tablet by mouth in the morning. ActiveFLUoxetine 20 mg oral capsule (17 sources)Serotonin Reuptake InhibitorStart: 92-05-4573abgd 1 capsule by mouth once dailyFLUoxetine HCl - 20 MG Oral Capsule TAKE 1 CAPSULE Daily Quantity: 30 Refills: 11 Ordered: 02-Jun-2021 Charlene Rodriguez DO Start : 02-Jun-2021 Active Start: 11-02-2018 End: 32-64-1476myfq 1 capsule by mouth once dailyFluoxetine (Prozac) 20 mg capsule Discontinued 20 MG PO Daily November 02, 2018 1:00am August 04, 2019 8:19amtake 1 capsule by mouth once dailyFLUoxetine (PROZAC) 10 mg capsule Take 10 mg by mouth once daily. 0 ActiveComment on above:Take 10 mg by mouth once daily.fluticasone propionate 0.05 mg/actuat metered dose nasal spray (16 sources)CorticosteroidStart: 06-22-2025 End: 35-05-9778gvsq 1 spray(s) nasal route once dailyfluticasone (Flonase) 50 MCG/ACT nasal spray Indications: Sinusitis, unspecified chronicity, unspecified location Administer 1 spray into each nostril Daily Shake gently. Before first use, prime pump. After use, clean tip and replace cap. 16 g 12 06/22/2025 07/15/2025 Discontinued End: 25-27-4233deqt 1 spray(s) nasal route in the morningfluticasone (Flonase) 50 MCG/ACT nasal spray Administer 1 spray into affected nostril(s) in the morn ing. 09/16/2025 Discontinued End: 94-19-0773ufux 1 spray(s) nasal route in the morningfluticasone propionate (FLONASE) 50 mcg/actuation nasal spray Administer 1 spray into each nostril in the morning. 09/04/2025 Discontinued ()lanolin 1000 mg/ml topical cream (2 sources)Start: 11-30-2022 End: 50-72-5955Snotcrx, As needed, dry skin, nipple discomfort, Starting on Constance 11/30/22 at 0608, Apply to affected area.500 ml magnesium sulfate 40 mg/ml injection (4 sources)Start: 11-28-2022 End: 31-17-9753jsfmhfenz sulfate 20 GM/500ML infusionStart: 11-28-2022 End: 86-90-0838awtouwlso sulfate 20 GM/500ML infusion - Pyxis ADS Override Pull metoclopramide 10 mg oral tablet (2 sources)Dopamine-2 Receptor AntagonistStart: 17-68-6170ebfc 1 tablet by mouth every eight hoursReglan 10 MG 1 tablet before meals Orally tid for 30 day(s) March, Not-TakingmiSOPROStol 0.2 mg oral tablet (2 sources)Prostaglandin E1 AnalogStart: 11-30-2022 End: 53-79-7337alNJGMJCibr (Cytotec) tablet 1,000 mcgStart: 11-30-2022 End: 97-28-5785ygCBVEMSrfl (Cytotec) tablet 1,000 mcgmiSOPROStol (Cytotec) split tablet 25 mcg (2 sources)Start: 11-28-2022 End: 16-96-9583avad 1 tablet vaginal route every four hoursmiSOPROStol (Cytotec) split tablet 25 mcg1 ml morphine sulfate 4 mg/ml injection (4 sources)Opioid AgonistStart: 11-28-2022 End: 98-54-1402wyjzfhqt sulfate (PF) injection 4 mgnitrofurantoin, macrocrystals 25 mg / nitrofurantoin, monohydrate 75 mg oral capsule (6 sources)Nitrofuran AntibacterialStart: 56-10-1957Fendqutywdsuqt Monohyd Macro 100 MG Oral Capsule TAKE 1 CAPSULE Other Please take one capsule aftersexual intercourse to prevent UTI Quantity: 30 Refills: 11 Ordered: 01-Apr-2021 Teri Chau MD Start : 01-Apr-2021 Active2 ml ondansetron 2 mg/ml injection (12 sources)Serotonin-3 Receptor AntagonistStart: 11-29-2022 End: 75-87-5909egsa 4 mg intravenously every six hours as needed for nausea and vomitingondansetron (Zofran) injection 4 mgStart: 25-62-2352zfxi 1 tablet by mouth every six hours as needed for nauseaZofran 4 mg Tab 1 tab(s), Oral, q6hr, PRN Nausea, # 8, Refills(s) 0 Start Date: 07/14/22 Status: Ordered Quantity: 8.0 Unit: Repeat number: 1Start: 24-14-7545rxtq 1 tablet by mouth three times daily Zofran 4 MG 1 tablet Orally THREE TIMES A DAY for 30 day(s) May, Not-Takingondansetron ODT (Zofran-ODT) disintegrating tablet 4 mg (2 sources)Start: 11-30-2022 End: 73-18-3407oehr 1 tablet by mouth every eight hours [...] for 1 hour. Then discontinue.Start: 11-29-2022 End: 85-41-5658votksjxr (Pitocin) 30 units in 500 mL infusionStart: 11-29-2022 End: 53-89-7784vjzngwzx (Pitocin) 30 units in 500 mL infusionphenazopyridine hydrochloride 200 mg oral tablet (10 sources)Start: 19-49-0891qaok 1 tablet by mouth three times dailyPyridium 200 mg Tab 200 mg = 1 tab(s), Oral, TID, Take one tab by mouth three times a day for threedays, # 9 tab(s), Refills(s) 0, Pharmacy: [facility], 157, cm, 03/04/21 7:22:00 EDT, Height/Length Dosing, 52, kg, 03/04/21 7:22:00 EDT, Weight Dosing Start Date: 03/04/21 Status: Ordered Quantity: 9.0 Unit: tab(s) Repeat number: 1predniSONE 10 mg oral tablet (3 sources)Start: 09-10-2023 End: 86-92-3845hgjl 2 tablets by mouth twice daily, then [...] 09/10/2023 01/10/2024 Discontinued (Therapy completed)Start: 03-12-2019 End: 95-15-1223rvmb 3 tablets by mouth once daily at mealtimePrednisone 20 mg tablet Discontinued 60 MG PO Daily 9 March 12, 2019 12:00am August 04, 2019 8:18am administer with food or milkpromethazine hydrochloride 12.5 mg oral tablet (13 sources)PhenothiazineStart: 05-25-2025 End: 95-67-8531zzda 1 tablet by mouth every six hours [...] for nausea. 30 tablet 2 Discontinued End: 26-94-1484mgis 12.5 mg rectal route every six hours as needed for nausea and vomitingpromethazine (PHENERGAN) 12.5 mg suppository Insert 1 suppository (12.5 mg total) into the rectum every 6 (six) hours as needed for nausea or vomiting. 09/04/2025 Discontinued ()rizatriptan 5 mg disintegrating oral tablet (5 sources)Serotonin-1b and Serotonin-1d Receptor AgonistStart: 10-24-2018 End: 27-34-7191tbmidxqhvqn RESEARCH CHIEF ENGINEER (MAXALT-RESEARCH CHIEF ENGINEER) 5 mg disintegrating tablet Dissolve 1 tablet (5 mg total) on tongue asneeded. 0 10/24/2018 09/04/2025 Discontinued ()5 ml sodium chloride 9 mg/ml injection (2 sources)Start: 11-28-2022 End: mL, IntraVENous, Every 12 hours scheduled (2 times per day), First dose on Sun11/28/22 at 0900, Pre-Deliveryvitamin b12 1 mg extended release oral tablet (5 sources)Vitamin A84Lspvz: 10-25-2018 End: 56-49-7940fcwp 1 tablet by mouth in the morningcyanocobalamin, vitamin B- 12, (VITAMIN B-12) 1,000 mcg tablet extended release Take 1 tablet (1 mg total) by mouth in the morning. 0 10/25/2018 09/04/2025 Discontinued ()witch yesi 500 mg/ml medicated pad (2 sources)Start: 11-30-2022 End: 32-50-1212Djtdljj, As needed, hemorrhoids, For perineal pain or discomfort, Starting on Sun11/30/22 at 0608, Apply to perineal area. Patient is capable and may self administer at bedside. Problems Active Problems Problem ClassificationProblemDateDocumented DateEpisodic/ChronicAllergic reactions (1 source)Allergic reaction; Translations: [Allergy, unspecified, initial encounter]00-62-4877ZadojkomHmbqhci on above:Problem List clean-up per request of Phys. EHR CmteAnxiety disorders (20 sources)Anxiety; Translations: [Anxiety state, unspecified]Onset: 10-08-2020 05-75-7180XshpobtBzfbilw on above:Problem List clean-up per request of Phys. EHR CmteCardiac dysrhythmias (20 sources)Paroxysmal tachycardia; Translations: [Paroxysmal tachycardia, unspecified]Onset: 218473-74-1313AoxoaraJkgnhyhketncy of surgical procedures or medical care (1 source)Postoperative retention of urine; Translations: [Other postprocedural complications and disorders of genitourinary system]21-59-0182QqkqasjbLohnqrj on above:Problem List clean-up per request of Phys. EHR CmteDiabetes mellitus without complication (2 sources)Abnormal glucose tolerance test; Translations: [Other abnormal glucose]53-98-0191JjbqestvSenuthzz or abnormal glucose tolerance complicating ; childbirth; or the puerperium (20 sources)Gestational diabetes mellitus; Translations: [Gestational diabetes mellitus in , diet controlled]Onset: 428313-18-9651Yqlxrwhp Endometriosis (20 sources)Endometriosis (clinical); Translations: [Endometriosis, site unspecified]Onset: 87-85-2191WdotsxyRpqnbipmt hypertension (20 sources)Hypertensive disorder; Translations: [Essential (primary) hypertension]Onset: 049919-53-8908HzzgawxThwsrnyeuaybe symptoms and ill- defined conditions (20 sources)Microscopic hematuria; Translations: [Nocturia]37-92-9615Hlmjzxvn Comment on above:Problem List clean-up per request of Phys. EHR CmteHeadache; including migraine (20 sources)Migraine; Translations: [Migraine, unspecified, not intractable, without status migrainosus]Onset: 989245-25-4914EdhzqywLlpuofr on above: Problem List clean-up per request of Phys. EHR CmteHeadache; including migraine (14 sources)Headache; Translations: [Headache, unspecified]Onset: 01-31-2023 23-62-8994EedmlzezCdopkjllxtf (1 source)Hemorrhoids; Translations: [Unspecified hemorrhoids]Onset: 07-14-2022 EpisodicHypertension complicating ; childbirth and the puerperium (20 sources)Hypertension complicating ; Translations: [Unspecified maternal hypertension, unspecified trimester]Onset: hronic Hypertension complicating ; childbirth and the puerperium (14 sources)Severe pre-eclampsia complicating childbirth; Translations: [Severe pre-eclampsia, third trimester]Onset: 61-17-6862UasfeiekZdpdr disorders and dislocations; trauma-related (20 sources)Disorder of left patellofemoral joint; Translations: [Patellofemoral disorders, left knee]Onset: 985723-55-2426BlauescKvyfl disorders and dislocations; trauma-related (20 sources)Disorder of right patellofemoral joint; Translations: [Patellofemoral disorders, right knee]Onset: hronic Menstrual disorders (20 sources)Dysmenorrhea; Translations: [Dysmenorrhea, unspecified]Onset: 837260-73-4649WpgnawaZudeby and vomiting (1 source)Nausea and vomiting; Translations: [Nausea with vomiting, unspecified] EpisodicNonspecific chest pain (2 sources)Chest pain; Translations: [Chest pain, unspecified]06-94-2059Afmbhuti Comment on above:Problem List clean-up per request of Phys. EHR CmteNutritional deficiencies (20 sources)Vitamin D deficiency; Translations: [Vitamin D deficiency, unspecified]Onset: 682745-90-8525PrmroooOrkso acquired deformities (20 sources)Scoliosis deformity of spine; Translations: [Scoliosis, unspecified] Onset: 872766-26-8848JjscbiiTyepd bone disease and musculoskeletal deformities (10 sources)Disorder of qyww52-29-9039LkqdpxkfDajucxs on above:right shoulder right shoulderOther circulatory disease (1 source)Elevated blood-pressure reading without diagnosis of hypertension; Translations: [Elevated blood-pressure reading, without diagnosis of hypertension]Onset: 05-29-0845HigplthpWrqow complications of ; puerperium affecting management of mother (1 source)Delayed AND/OR secondary hemorrhage; Translations: [Delayed and secondary hemorrhage]Onset: 83-44-3411KleyqjqvSpfxt complications of (1 source)Finding related to ; Translations: [Other specified related conditions, unspecified trimester]Onset: 63-07-8571GrstgejnRqocw complications of (1 source)Supervision of with other poor reproductive or obstetric history, unspecified trimester; Translations: [Supervision of with other poor reproductive or obstetric history, unspecified trimester]Onset: 49-56-1295GciibuoyOjudx connective tissue disease (1 source)Diastasis recti; Translations: [Separation of muscle (nontraumatic), other site]EpisodicOther female genital disorders (10 sources)Abnormal uterine nhkykkmf73-52-9637HwsjbynIbjup female genital disorders (1 source)Dyspareunia; Translations: [Other specified dyspareunia]ChronicOther female genital disorders (20 sources)Pain in female genitalia on intercourse; Translations: [Unspecified dyspareunia]Onset: 497690-53-9802WtueizaKhenb female genital disorders (1 source)Unspecified dyspareunia; Translations: [Unspecified dyspareunia]Onset: 60-27-0886EhsautiOojow female genital disorders (2 sources)Pelvic floor dysfunction; Translations: [Other specified conditions associated with female genital organs and menstrual cycle]EpisodicOther gastrointestinal disorders (18 sources)Constipation; Translations: [Constipation, unspecified]Onset: 353938-12-1854WfiulxhxZwhvmou on above:Problem List clean-up per request of Phys. EHR CmteOther gastrointestinal disorders (1 source)Constipation, unspecified; Translations: [Constipation, unspecified] Onset: 00-25-5135QoqnpaqbUtydj hereditary and degenerative nervous system conditions (20 sources)Finding of scapular structure; Translations: [Other specified extrapyramidal and movement disorders]Onset: 866296-13-0623AkvbdjoDpkal nervous system disorders (9 sources)Chronic pain; Translations: [Other chronic pain]Onset: 03-29-2023 75-17-7894PpbpzqcGsxhn nervous system disorders (1 source)Other chronic pain; Translations: [Chronic pelvic pain in female] Onset: 25-58-8695XcgdhhhDhdmv nervous system disorders (1 source)Paresthesia of left upper limb; Translations: [Paresthesia of skin] 75-45-6408MjjinmtiYxdtsjk on above:Problem List clean-up per request of Phys. EHR CmteOther nervous system disorders (1 source)Tremor; Translations: [Tremor, unspecified]43-41-1462JfypqbwaXgocrpu on above:Problem List clean-up per request of Phys. EHR CmteOther nutritional; endocrine; and metabolic disorders (20 sources)Body mass index 30+ - obesity; Translations: [Obesity, unspecified] Onset: 990151-13-7337ApexkxyWezsw and delivery including normal (16 sources); Translations: [Encounter for supervision of normal , unspecified, unspecified trimester]33-55-9171FtmlcdxrSoiom screening for suspected conditions (not mental disorders or infectious disease) (8 sources)Elevated liver enzymes level; Translations: [Other specified abnormal findings of blood chemistry]Onset: 04-18-2022 Resolved: 01-57-0305HgljzyetBpiru upper respiratory disease (20 sources)Allergic rhinitis due to pollen; Translations: [Allergic rhinitis due to pollen]Onset: 235029-42-8357NinyhgiHotoy upper respiratory infections (2 sources)Sinusitis; Translations: [Chronic sinusitis, unspecified]06-22-2025 ChronicResidual codes; unclassified (2 sources)Contraception ; Translations: [Other specified health status] 75-58-2522ZuxsmxmuSeckawis codes; unclassified (2 sources)Gestation period, 13 weeks; Translations: [13 weeks gestation of ]22-32-6602XhgvjrnrWbqukadx codes; unclassified (2 sources)Gestation period, 17 weeks; Translations: [17 weeks gestation of ]31-14-9055OtqaaplzIfohjqni codes; unclassified (2 sources)Gestation period, 20 weeks; Translations: [20 weeks gestation of ]87-54-4179FjxtjglzMqloxivc codes; unclassified (2 sources)Gestation period, 24 weeks; Translations: [24 weeks gestation of ]05-01-4011DxioiwgrGuhezgbp codes; unclassified (2 sources)Gestation period, 26 weeks; Translations: [26 weeks gestation of ]81-79-5194GfckvlqqVgeazwyo codes; unclassified (2 sources)Gestation period, 27 weeks; Translations: [27 weeks gestation of ]38-72-6242DgernziiDupritbg codes; unclassified (1 source)Gestation period, 28 weeks; Translations: [28 weeks gestation of ]94-11-5408YmvkccwkDxbicaqd codes; unclassified (1 source)28 weeks gestation of ; Translations: [28 weeks gestation of ]Onset: 37-55-1705XeddohfeWxauliek codes; unclassified (2 sources)Gestation period, 29 weeks; Translations: [29 weeks gestation of ]18-68-3007JofdmdfzUdwjbbhasxs; intervertebral disc disorders; other back problems (20 sources)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; Translations: [Other cervical disc displacement, unspecified cervical region] Onset: 230928-85-5351RxvpodjXspdkzqvfqyp (1 source)Gestational DiabetesOnset: 65-36-7735Rsgwsibjbmog (1 source)MFM consultOnset: 62-63-9676Ofbpaxf tract infections (20 sources)Recurrent urinary tract infection; Translations: [Urinary tract infection, site not specified]Onset: 920373-16-5030Qvnvzluj Past or Other Problems Problem ClassificationProblemDateDocumented DateEpisodic/ChronicAbdominal pain (20 sources)Epigastric pain; Translations: [Epigastric pain]Onset: 07-14-2022 EpisodicAcquired foot deformities (20 sources)Acquired equinus deformity of foot; Translations: [Other acquired deformities of unspecified foot]Onset: 181967-38-1566PsrpddymNkdmhsi dysrhythmias (20 sources)Tachycardia; Translations: [Tachycardia, unspecified]Onset: 031943-38-9055TyvrnmfpRwstksipsgp deficiencies (20 sources)Cobalamin deficiency; Translations: [Deficiency of other specified B group vitamins]Onset: 854557-56-3369DfosdjwgPrsca connective tissue disease (20 sources)Posterior calcaneal exostosis; Translations: [Calcaneal spur, unspecified foot]Onset: 924393-60-3729QmlemwbcJzwfo disorders of stomach and duodenum (20 sources)Gastroparesis syndrome; Translations: [Gastroparesis]Onset: 918417-22-3643BmnksaawQnyss female genital disorders (1 source)Other specified conditions associated with female genital organs and menstrual cycle; Translations:[High-tone pelvic floor dysfunction]Onset: 31-24-1369EzytxqjeTtylg female genital disorders (19 sources)Chronic pelvic pain of female; Translations: [Chronic pelvic pain in female]Onset: 086019-74-3306JnkdlisfSinry gastrointestinal disorders (20 sources)Swallowing painful; Translations: [Dysphagia, unspecified]Onset: 182394-31-6816DduucfugQtexq gastrointestinal disorders (20 sources)Diarrhea; Translations: [Diarrhea, unspecified]Onset: 03-24-2025 69-71-0470RmxgbdjdNqigj non-traumatic joint disorders (20 sources)Chronic pain of right upper limb; Translations: [Pain in right shoulder]Onset: 346103-64-7834NuztdrowUkoph nutritional; endocrine; and metabolic disorders (16 sources)Loss of appetite; Translations: [Anorexia]Onset: 05-27-2020 69-83-7837AaruooyaPkfedvl (15 sources)Vasovagal syncope; Translations: [Syncope and collapse]Onset: 158378-52-5627ZekkseobDbztylkhvjny (9 sources)PregnancyOnset: 07-14-2022 Resolved: 787225-38-7873VHGDUNG: Highlighted row has been ruled out! Unclassified (1 source)No known active xehmkwuq61-76-6829 Results Test NameValueInterpretationReference RangeFacilityUS OB BPP W NON-STRESS on 70-70-6073[place]gd[place] [address] Ultrasound Report Signed Patient: JUHI GAMA MR#: [id number] : 1995 Acct:[id number] Age/Sex: 30 / F ADM Date: 09/26/25 Loc: US Attending Dr: Steph Keane Ordering Physician: Steph Keane Date of Service: 09/26/25 Procedure(s): US OB BPP w non-stress Accession Number(s): [id number] cc: Steph Keane; Yomaira BELTRAN [address] [address] Patient Name: JUHI GAMA MRN: [id number] date: 1995 Sex: F Assigned Patient Location: US Current Patient Location: Accession/Order Number: [id number] Exam Date: 09/26/2025 11:50 Report Date: 09/26/2025 14:50 At the request of: STEPH KEANE Procedure: US OB BPP w non-stress Ultrasound biophysical profile INDICATION: -induced hypertension COMPARISON: 09/19/2025 FINDINGS IMPRESSION: Cephalic position. 8 out of 8 score biophysical profile. LEONEL 11.6 cm. heart 129 bpm Impression dictated by: Chu Amaya M.D. 09/26/2025 2:50 PM Dictation Location: [place] [address] Electronically authenticated by: [id number] Y Date: 09/26/2025 14:50 Dictated By: Chu Amaya M.D. Signed By: 09/26/25 1452 DD/ 49 TD/TT: Glass Handler:SATNAMadiologpearl, Radiologist, - 09/26/2025 [place] [address] Ultrasound Report Signed Patient: JUHI GAMA MR#: [id number] : 1995 Acct:[id number] Age/Sex: 30 / F ADM Date: 09/26/25 Loc: US Attending Dr: Steph Keane Ordering Physician: Steph Keane Date of Service: 09/26/25 Procedure(s): US OB BPP w non-stress Accession Number(s): [id number] cc: Steph Keane; Yomaira BELTRAN [place] [address] Patient Name: JUHI GAMA MRN: [id number] date: 1995 Sex: F Assigned Patient Location: US Current Patient Location: Accession/Order Number: [id number] Exam Date: 09/26/2025 11:50 Report Date: 09/26/2025 14:50 At the request of: STEPH KEANE Procedure: US OB BPP w non-stress Ultrasound biophysical profile INDICATION: -induced hypertension COMPARISON: 09/19/2025 FINDINGS IMPRESSION: Cephalic position. 8 out of 8 score biophysical profile. LEONEL 11.6 cm. heart 129 bpm Impression dictated by: Chu Amaya M.D. 09/26/2025 2:50 PM Dictation Location: [place] [address] Electronically authenticated by: [id number] Y Date: 09/26/2025 14:50 Dictated By: Chu Amaya M.D. Signed By: 09/26/25 1452 DD/ 49 TD/TT: Glass Handler: LANETTE HealthcareRadiology Study observation (narrative)NOM HealthcareUS OB BPP W NON-STRESSOrdered By: Radiologist Radiology on 76-70-1537[employer] Work Phone: US OB BPP W NON-STRESSon [phone] [address] Ultrasound Report Signed Patient: JUHI GAMA MR#: [id number] : 1995 Acct:[id number] Age/Sex: 30 / F ADM Date: 09/19/25 Loc: US Attending Dr: Steph Keane Ordering Physician: Steph Keane Date of Service: 09/19/25 Procedure(s): US OB BPP w non-stress Accession Number(s): [id number] cc: Steph Keane; Yomaira BELTRAN [place] [id number] Patient Name: JUHI GAMA MRN: [id number] date: 1995 Sex: F Assigned Patient Location: [facility] Current Patient Location: Accession/Order Number: [id number] Exam Date: 09/19/2025 10:06 Report Date: 09/19/2025 [...] Morillo M.D. 09/19/2025 12:17 PM Dictation Location: [employer] Electronically authenticated by: [id number] Y Date: 09/19/2025 12:17 Dictated By: Jp Morillo D.O. Signed By: 09/19/25 1219 DD/ 121 TD/TT: Glass Handler:SATNAMadiologpearl, Radiologist, - 09/19/2025 [place] [address] Ultrasound Report Signed Patient: JUHI GAMA MR#: [id number] : 1995 Acct:[id number] Age/Sex: 30 / F ADM Date: 09/19/25 Loc: US Attending Dr: Steph Keane Ordering Physician: Steph Keane Date of Service: 09/19/25 Procedure(s): US OB BPP w non-stress Accession Number(s): [id number] cc: Steph Keane; Yomaira BELTRAN [place] [id number] Patient Name: JUHI GAMA MRN: [id number] date: 1995 Sex: F Assigned Patient Location: [facility] Current Patient Location: Accession/Order Number: [id number] Exam Date: 09/19/2025 10:06 Report Date: 09/19/2025 [...] Morillo M.D. 09/19/2025 12:17 PM Dictation Location: [place] [address] Electronically authenticated by: [id number] Y Date: 09/19/2025 12:17 Dictated By: Jp Morillo D.O. Signed By: 09/19/25 1219 DD/ 1217 TD/TT: Glass Handler: LANETTE HealthcareRadiology Study observation (narrative)NOM HealthcareUS OB BPP W NON-STRESSOrdered By: Radiologist Radiology on 16-22-8145QVUB Healthcare Work Phone: Urinalysis macro (dipstick) panel (U)on 09-16-2025 Bilirubin, UANegativeNegative - 4(70) +++ mg/dLNOMS HealthcareBlood, UANegative Negative - 50 Teodoro/mcLNOMS HealthcareClarity, UAClearNOMS HealthcareColor, UA YellowNOMS HealthcareGlucose, UANegativeNegative - 2000(110) ++++ mg/dLNOCA HealthcareInterpretation and review of laboratory resultsNormalNOCA Healthcare Ketones, UANegativeNegative - 160(16) ++++ mg/dLNOMS HealthcareLeukocytes, UA NegativeNegative - 500+++ Robinson/mcLNOCA HealthcareNitrite, UANegativeNegative - PositiveNOMS HealthcarepH, UA6.05 - 9NOMS HealthcareProtein, UANegativeNegative - 2000(20) ++++ mg/dLNOMS HealthcareSpec Grav, UA1.0101 - 1.03NOCA Healthcare Urobilinogen, UA1.00.2 - 12 mg/dLNORay County Memorial HospitalNOCA HealthcareALL BUNon 98-80-3138Mxmw nitrogen [Mass/Vol]8 mg/dL7.0 - 18.0 mg/dLNOCA HealthcareALL URIC ACIDon 27-25-5706Jihbb [Mass/Vol]3.5 mg/dL2.6 - 6.0 mg/dLNOCA HealthcareCCF ALT on 03-42-5693KHE [Catalytic activity/Vol]40 U/L14 - 59 U/LNOMS HealthcareCCF AST on 22-47-5333FLL [Catalytic activity/Vol]24 U/L15 - 37 U/LNOMS HealthcareNo Panel Informationon 79-34-8260Iurgzgbymvekbu and review of laboratory results AbnormalNOCA HealthcareCLINISYNPrisma Health Greenville Memorial HospitalTBH CREATININEon 09-03-2025 Creatinine [Mass/Vol]0.42 mg/dLLow0.55 - 1.02 mg/dLNOCA HealthcareGFR/1.73 sq M.predicted CKD-EPI (S/P/Bld) [Vol rate/Area]>60>=60 mL/min/1.73m 2NOMS HealthcareTB EGFR-NON AF SIERRA LEONEAN>60>=60 mL/min/1.73m 2NOMS [facility] SpringfieldTB URINE T PROTEIN CREAT RATIOon 94-77-6317CFSRMSNYAM URINE RANDOM<13.45Axe85.00 - 300.00 mg/dLWashington County Memorial HospitalTOTAL PROTEIN URINE RANDOM<6.0NINF - 11.9 mg/dLWashington County Memorial HospitalUrinalysis macro (dipstick) panel (U)on 49-79-1290Qprvjqnkz, UA NegativeNegative - 4(70) +++ mg/dLBE[facility]IVER [facility] HealthcareBlood, UANegativeNegative - 50 Teodoro/[facility] HealthcareClarity, UAClearNOCA HealthcareColor, UAYellowNOCA HealthcareGlucose, UANegativeNegative - 2000(110) ++++ mg/dLBEAR RIVER VALLEY [facility]OSPITAL Healthcare Interpretation and review of laboratory resultsNormalNOCA HealthcareKetones, UA NegativeNegative - 160(16) ++++ mg/dLBEAR RIVER VALLEY HOSPITAL HealthcareLeukocytes, UANegative Negative - 500+++ Robinson/mcLBEAR RIVER VALLEY HOSPITAL HealthcareNitrite, UANegativeNegative - Positive NOMS HealthcarepH, UA6.55 - 9NOCA HealthcareProtein, UANegativeNegative - 2000(20) ++++ mg/dLBEAR RIVER VALLEY HOSPITAL HealthcareSpec Grav, UA1.0051 - 1.03NOCA Healthcare Urobilinogen, UA2.00.2 - 12 mg/dLOn license of [facility] CenterTB TOTAL PROTEIN 24 HOUR URINEon 53-20-7599Zgkxgflkzmdeap and review of laboratory results AbnormalNOCA HealthcareProtein (U) [Mass/Vol]22.6 mg/dLHighNINF - 11.9 mg/dLPershing Memorial Hospital TOTAL PROTEIN 24 HOUR JLTJB848.6NINFNORay County Memorial HospitalTOTAL VOLUME 24 HOUR VTNNE076nF/24hrNOAurora Health Care Bay Area Medical CenterALL CBC WITH AUTO DIFFon 73-25-3120YQJXRUZKZ ABSOLUTE AUTO0.1NOMS HealthcareBasophils/100 WBC (Bld)0.5 %0.2 - 2.0 %NOMOzarks Medical CenterEosinophils/100 WBC (Bld)1.4 %0.9 - 7.0 % [facility] County Memorial HospitalErythrocyte distribution width (RBC) [Ratio]13 %11.0 - 15.0 %Washington County Memorial HospitalHematocrit (Bld) [Volume fraction]34.4 %Low36.0 - 48.0 %[facility] Memorial HospitalHemoglobin (Bld) [Mass/Vol]11.3 g/dLLow12.0 - 16.0 g/dLWashington County Memorial Hospital IMMATURE GRANULOCYTES ABS AUTO0.59HighNORay County Memorial HospitalImmature granulocytes/100 WBC (Bld)4.4 %High0.0 - 0.5 %[facility] HospitalInterpretation and review of laboratory resultsAbnormalNORay County Memorial HospitalLYMPHOCYTES ABSOLUTE AUTO2.4NORay County Memorial HospitalLymphocytes/100 WBC (Bld)17.8 %Low20.5 - 60.0 %[facility] Medical CenterH (RBC) [Entitic mass]29.4 pg26.7 - 34.0 pgSaint John's Breech Regional Medical CenterHC (RBC) [Mass/Vol] 32.8 g/dL29.9 - 35.2 g/dLWashington County Memorial HospitalMCV (RBC) [Entitic vol]89.4 fL81.0 - 99.0 fLWashington County Memorial HospitalMONOCYTES ABSOLUTE AUTO1.1HighNORay County Memorial HospitalMonocytes/100 WBC (Bld)8.1 %1.7 - 12.0 %[facility] Memorial HospitalNEUTROPHILS ABSOLUTE JQFT8KrheTCCLWashington County Memorial HospitalNeutrophils/100 WBC (Bld)67.8 %43.0 - 75.0 %[facility] Memorial HospitalPlatelet mean volume (Bld) [Entitic vol]9.6 fL9.5 - 13.5 fLWashington County Memorial HospitalTBH EO #0.2NOMS [facility] SpringfieldTBH [id number] [facility] SpringfieldTB RBC3.85LowNOCox Walnut Lawn WBC13.3High Washington County Memorial HospitalCLINISYNCNOMS [facility] SpringfieldTB URINE T PROTEIN CREAT RATIOon 32-88-2729DHNNAXMLCK URINE RANDOM<13.59Xhu63.00 - 300.00 mg/dLNOMS Healthcare Interpretation and review of laboratory resultsAbnormalNOCA HealthcareTOTAL PROTEIN URINE RANDOM<6.0NINF - 11.9 mg/dLNOCA HealthcareCLINISYNCNMercy McCune[facility] US OB BPP W NON-STRESSon 41-73-0905[place] [address] Ultrasound Report Signed Patient: JUHI GAMA MR#: [id number] : 1995 Acct:[id number] Age/Sex: 30 / F ADM Date: Loc: [facility] 250-[address]: KUNAL HYATT M.D. Ordering Physician: Steph Keane Date of Service: 08/27/25 Procedure(s): US OB BPP w non-stress Accession Number(s): [id number] cc: Steph Keane; Yomaira BELTRAN [place] [address] Patient Name: JUHI GAMA MRN: [id number] date: 1995 Sex: F Assigned Patient Location: LAB Current Patient Location: LAB Accession/Order Number: [id number] Exam Date: 08/27/2025 17:37 Report Date: 08/27/2025 [...] Morillo M.D. 08/27/2025 6:02 PM Dictation Location: [email or web address] Electronically authenticated by: [id number] Y Date: 08/27/2025 18:02 Dictated By: Jp Morillo D.O. Signed By: 08/27/251804 DD/ 01 TD/TT: Glass Handler:SATNAMadiology, Radiologist, - 08/27/2025 [place] [address] Ultrasound Report Signed Patient: JUHI GAMA MR#: [id number] : 1995 Acct:[id number] Age/Sex: 30 / F ADM Date: Loc: [facility] 250-[address]: KUNAL HYATT M.D. Ordering Physician: Steph Keane Date of Service: 08/27/25 Procedure(s): US OB BPP w non-stress Accession Number(s): [id number] cc: Steph Keane; Yomaira BELTRAN [place] [id number] Patient Name: JUHI GAMA MRN: [id number] date: 1995 Sex: F Assigned Patient Location: LAB Current Patient Location: LAB Accession/Order Number: [id number] Exam Date: 08/27/2025 17:37 Report Date: 08/27/2025 [...] Morillo M.D. 08/27/2025 6:02 PM Dictation Location: [place] [address] Electronically authenticated by: [id number] Y Date: 08/27/2025 18:02 Dictated By: Jp Morillo D.O. Signed By: 08/27/251804 DD/ 01 TD/TT: Glass Handler: LANETTE HealthcareRadiology Study observation (narrative)NOMS HealthcareUS OB BPP W NON-STRESSOrdered By: Radiologist Radiology on 89-00-0489NSXI Healthcare Work Phone: Urinalysis macro (dipstick) panel (U)on 08-27-2025 Bilirubin, UANegativeNegative - 4(70) +++ mg/dLNOMS HealthcareBlood, UANegative Negative - 50 Teodoro/mcLNOCA HealthcareClarity, UAClearNOMS HealthcareColor, UA YellowNOMS HealthcareGlucose, UANegativeNegative - 2000(110) ++++ mg/dLNOCA HealthcareInterpretation and review of laboratory resultsNormalNOCA Healthcare Ketones, UANegativeNegative - 160(16) ++++ mg/dLNOCA HealthcareLeukocytes, UA NegativeNegative - 500+++ Robinson/mcLNOCA HealthcareNitrite, UANegativeNegative - PositiveNOMS HealthcarepH, UA65 - 9NOMS HealthcareProtein, UANegativeNegative - 2000(20) ++++ mg/dLNOMS HealthcareSpec Grav, UA1.0151 - 1.03NOCA Healthcare Urobilinogen, UA2.00.2 - 12 mg/dLNOCA HealthcareNOCA HealthcareURINE CULTURE, ROUTINEon 19-95-8019Yltysjrs identified Cx Nom (U) Urine Culture, Routine NOMS HealthcareBacteria identified Cx Nom (U)Mixed urogenital floraNOMS HealthcareBacteria identified Cx Nom (U)25,000-50,000 colony forming units per mLNOMS HealthcareBacteria identified Cx Nom (U)Performed at: - [facility] NOMS HealthcareBacteria identified Cx Nom (U)[address] [place], [place] [id number] HealthcareBacteria identified Cx Nom (U)Emergency Management Program Specialist: Cm Sandoval PhD, Phone: [phone] HealthcareCLINISYNCNOMS Jdtahzxytv6pk hr Glucose Tolerance 100 gm loadon 98-53-5131Icosdpo Tolerance Test 2 Fqzg572 [facility] HospitalCapillary Glucose POCon 83-74-9430Ynrrtnn [Mass/Vol]88 mg/dJHylgtf71-92XhmwetGrace Medical CenterComment on above:Performed By: #### [id number] #### [facility] [address] [place] [address] 18[address]Avx 1 Hron 47-97-0678Xvyouqs [Mass/Vol]152 mg/dGJijcnn42-922 [facility] CenterComment on above:Performed By: #### [id number] #### [facility] [address] [place], [place] [address]Osd 2 Hron 03-89-6504Oocjiyp [Mass/Vol]169 mg/iVSrpz17-519 [facility] CenterComment on above:Performed By: #### [id number] #### [facility] [address] [place], [place] [address]Vxg 3 Hron 13-01-0165Vfgwnby [Mass/Vol]141 mg/kFXeuj00-274 [facility] CenterComment on above:Performed By: #### [id number] #### [facility] [address] [place] [address]Hjs Fastingon 10-59-4789Gsnjylo [Mass/Vol]82 mg/qNQhioyp22-11 [facility] CenterComment on above:Performed By: #### [id number] #### [facility] [address] [place], [place] [address]Vksxfmv tolerance, 1 houron 13-89-1528Jxgvsen Tolerance Test 1 Vlxp065VsaTryarg Health SystemGlucose tolerance, 3 hourson 37-15-6306Inbovig Tolerance Test 3 Rifj453MoeRixwui Health SystemGlucose, tolerance fastingon 01-20-7974Xfkkude Tolerance Test Rhqtzgs77WxmLowciv Health SystemNo Panel Informationon 31-77-7064YwcDtuzjrMiddletown HospitalCBC w/ Auto Diffon 08-12-2025 Basophil Absolute0.1 E9/LNormal0.0-0.2FWVUMedicine Barnesville HospitalComment on above:Performed By: #### [id number] #### [facility] [address] [place], [place] [address]Rpwgxlecz/100 WBC (Bld)0.6 %Normal0.0-2.0[facility] CenterComment on above:Performed By: #### [id number] #### [facility] [address] [place], [place] [address]Key Absolute0.1 E9/LNormal0.0-0.5FWVUMedicine Barnesville Hospital Comment on above:Performed By: #### [id number] #### [facility] [address] [place] [address]Walgyshunjo/100 WBC (Bld)1.0 %Normal0.0-8.0[facility] Medical CenterComment on above:Performed By: #### [id number] #### [facility] [address] [place] [address]Kildrkhsrvp distribution width (RBC) [Ratio]12.9 %Normal 10.9-14.2FWVUMedicine Barnesville HospitalComment on above:Performed By: #### [id number] #### [facility] [address] [place] [address] 348[address]Vkvzksbtvv (Bld) [Volume fraction]33.1 %Low34.0-46.0[facility] Medical CenterComment on above:Performed By: #### [id number] #### [facility] [address] [place] [address] 89[address]Qhhnuadhde (Bld) [Mass/Vol]11.4 g/dLLow12.0-16.0[facility] CenterComment on above:Performed By: #### [id number] #### [facility] [address] [place] [address]Oqyjz Absolute2.0 E9/LNormal1.0-4.0[facility] Comment on above:Performed By: #### [id number] #### [facility] [address] [place] [address]37[address]Vpmsbcmoqnt/100 WBC (Bld)19.6 %Hvcsen23.0-50.0[facility] CenterComment on above:Performed By: #### [id number] #### [facility] [address] [place] [address]15[address]MIP (RBC) [Entitic mass]29.9 laFevwst03.0-34.0[facility] CenterComment on above:Performed By: #### [id number] #### [facility] [address] [place], [place] [address]TMOQ (RBC) [Mass/Vol]34.4 g/nNMfdcjo30.4-36.0[facility] CenterComment on above:Performed By: #### [id number] #### [facility] [address] [place] [address] 701[address]EOT (RBC) [Entitic vol]86.7 eYYvkkzu77.0-100.0[facility] CenterComment on above:Performed By: #### [id number] #### [facility] [address] [place] [address] 114[address]Gsbs Absolute0.5 E9/LNormal0.2-1.0[facility] Comment on above:Performed By: #### [id number] #### [facility] [address] [place] [address] 12[address]Rwfxixgwh/100 WBC (Bld)4.6 %Normal4.0-14.0[facility] CenterComment on above:Performed By: #### [id number] #### [facility] [address] [place] [address] 246[address]Xrztvu Absolute7.5 E9/LNormal2.0-7.5FWVUMedicine Barnesville Hospital Comment on above:Performed By: #### [id number] #### [facility] [address] [place] [address] 117[address]Gljzmz Auto74.2 %Mqwhrd90.0-75.0[facility] Comment on above:Performed By: #### [id number] #### [facility] [address] [place] [address] 18189Qvjsqjdj786.0 E9/NOrdwng158.0-500.0[facility] Comment on above:Performed By: #### [id number] #### [facility] [address] [place] [address] 122[address]Tkppoorb mean volume (Bld) [Entitic vol]8.1 fLNormal6.4-10.8 [facility] CenterComment on above:Performed By: #### [id number] #### [facility] [address] [place], [place] [address]XDX3.8 E12/LLow4.3-5.9[facility] CenterComment on above:Performed By: #### [id number] #### [facility] [address] [place] [address] 988[address]QBT88.1 E9/LNormal4.0-11.0[facility] Medical CenterComment on above:Performed By: #### [id number] #### [facility] [address] [place], [place] [address]Ihyevpiatz 83-99-7422Loijesoe Lvl7 ng/kQVop78-537FddjupUniversity Hospitals Geauga Medical CenterComment on above:Performed By: #### [id number] #### [facility] [address] [place] [address] 07[address]Qvskxcpl 59-12-2120Dmkbjx Lvl>22.3Normal>=6.7FWVUMedicine Barnesville HospitalComment on above:Performed By: #### [id number] #### [facility] [address] [place] [address] 17[address]Cufy Scr Glu 1 Hron 30-99-2763Svfilgn [Mass/Vol]155 mg/dLHigh 55-140[facility] CenterComment on above:Performed By: #### [id number] #### [facility] [address] [place], [place] [address]Kfkeigs 1h post 50g loadon 92-10-5713Wrqnphh, 1 hr PP 50GM dose 155ProMedica Health SystemIronon 95-20-5382Ymhc04 microgram/rQOacbiv98-618BcbxanUniversity Hospitals Geauga Medical CenterComment on above:Performed By: #### [id number] #### [facility] [address] [place], [place] [address]Lp Panel Informationon 02-93-0181CDPF HealthcareTIBC Calculated on 95-24-4626CSYH033 microgram/wHQigo509-540PyqaatUniversity Hospitals Geauga Medical CenterComment on above:Performed By: #### [id number] #### [facility] [address] [place], [place] [address]Hdzqmxoevao [Mass/Vol]455 mg/aWShgc064-684FkyuizUniversity Hospitals Geauga Medical CenterComment on above:Performed By: #### [id number] #### [facility] [address] [place] [address]VT OB LIMITED 1+ FETUSESon 61-89-6846UU OB LIMITED 1+ FETUSES FINDINGS: Single viable [...] Delivery: 11/28/25 Gestational Age as of 07/21/2025: 27l5nOcbntpblpc macro (dipstick) panel (U)on 08-47-4543Rfdpfnity, UANegativeNegative - 4(70) +++ mg/dLNOMS HealthcareBlood, UANegativeNegative [...] HealthcareUrobilinogen, UA1.00.2 - 12 mg/dLNOMS HealthcareVit B12on 92-19-1888Cmjifddzm (Vitamin B12) [Mass/Vol]205 pg/rVKknypo55-8966QqniwmUniversity Hospitals Geauga Medical CenterComment on above:Performed By: #### [id number] #### [facility] [address] [place] [address] 37[address]EAI w/ Auto Diffon 39-88-9756Qkyzmuwg Absolute0.0 E9/LNormal 0.0-0.2FWVUMedicine Barnesville HospitalComment on above:Performed By: #### [id number] #### [facility] [address] [place] [address]34[address]Jrnhtsuns/100 WBC (Bld)0.2 %Normal0.0-2.0[facility] Medical CenterComment on above:Performed By: #### [id number] #### [facility] [address] [place] [address] 269[address]Xph Absolute0.1 E9/LNormal0.0-0.5FWVUMedicine Barnesville Hospital Comment on above:Performed By: #### [id number] #### [facility] [address] [place] [address] 35[address]Vwhmsdcrcny/100 WBC (Bld)0.5 %Normal0.0-8.0[facility] Medical CenterComment on above:Performed By: #### [id number] #### [facility] [address] [place] [address] 912[address]Kgnbeejnrsi distribution width (RBC) [Ratio]13.0 %Normal 10.9-14.2FWVUMedicine Barnesville HospitalComment on above:Performed By: #### [id number] #### [facility] [address] [place] [address] 184[address]Zanvklmnhi (Bld) [Volume fraction]31.9 %Low34.0-46.0[facility] CenterComment on above:Performed By: #### [id number] #### [facility] [address] [place] [address] 78[address]Bazjuolymn (Bld) [Mass/Vol]11.1 g/dLLow12.0-16.0[facility] CenterComment on above:Performed By: #### [id number] #### [facility] [address] [place] [address] 101[address]Dnome Absolute2.1 E9/LNormal1.0-4.0[facility] Comment on above:Performed By: #### [id number] #### [facility] [address] [place] [address] 547[address]Lkkgwhpwfag/100 WBC (Bld)16.2 %Qtdmlr41.0-50.0[facility] Medical CenterComment on above:Performed By: #### [id number] #### [facility] [address] [place] [address] 506[address]YTX (RBC) [Entitic mass]29.9 hzClhdjj34.0-34.0[facility] CenterComment on above:Performed By: #### [id number] #### [facility] [address] [place] [address] 648[address]GFOI (RBC) [Mass/Vol]34.8 g/aFNwplfx21.4-36.0[facility] CenterComment on above:Performed By: #### [id number] #### [facility] [address] [place] [address] 511[address]YHO (RBC) [Entitic vol]85.7 iBUwwcny86.0-100.0[facility] Medical CenterComment on above:Performed By: #### [id number] #### [facility] [address] [place] [address] 09[address]Vjij Absolute0.9 E9/LNormal0.2-1.0[facility] Comment on above:Performed By: #### [id number] #### [facility] [address] [place] [address] 165[address]Evtmgwrma/100 WBC (Bld)7.0 %Normal4.0-14.0[facility] Medical CenterComment on above:Performed By: #### [id number] #### [facility] [address] [place] [address] 421[address]Jcyoow Absolute9.7 E9/LHigh2.0-7.5FWVUMedicine [facility]ville Hospital Comment on above:Performed By: #### [id number] #### [facility] [address] [place], [place] [address]Urdwtv Auto76.1 %High36.0-75.0[facility] Comment on above:Performed By: #### [id number] #### [facility] [address] [place], [place] [address]Rzwailfd890.0 E9/CTnwrrm916.0-500.0[facility] Comment on above:Performed By: #### [id number] #### [facility] [address] [place], [place] [address]Obqqvneu mean volume (Bld) [Entitic vol]8.0 fLNormal6.4-10.8 [facility] CenterComment on above:Performed By: #### [id number] #### [facility] [address] [place] [address] 64124XYW2.7 E12/LLow4.3-5.9[facility] CenterComment on above:Performed By: #### [id number] #### [facility] [address] [place] [address] 34642RYH03.8 E9/LHigh4.0-11.0[facility] CenterComment on above:Performed By: #### [id number] #### [facility] [address] [place] [address] 22189EPNcx 29-04-2285PK4 [Moles/Vol]20 mmol/GTrm76-37FrejuaUniversity Hospitals Geauga Medical CenterComment on above:Performed By: #### [id number] #### [facility] [address] [place], [place] [address]Bxahv gap [Moles/Vol]16 mmol/LNormal6-16[facility] Medical CenterComment on above:Performed By: #### [id number] #### [facility] [address] [place], [place] [address]Drleoec [Mass/Vol]3.8 g/dLNormal3.3-5.0[facility] Medical CenterComment on above:Performed By: #### [id number] #### [facility] [address] [place], [place] [address]Zmgrwbl/Globulin [Mass ratio]1.3 {ratio}Normal1.1-2.2FWVUMedicine Barnesville HospitalComment on above:Performed By: #### [id number] #### [facility] [address] [place], [place] [address]Kgz Phos78 Int._Unit/OXjmebm84-20LbpppbUniversity Hospitals Geauga Medical Center Comment on above:Performed By: #### [id number] #### [facility] [address] [place], [place] [address]RJQ00 Int._Unit/LNormal6-46[facility] Medical CenterComment on above:Performed By: #### [id number] #### [facility] [address] [place], [place] [address]BXB96 Int._Unit/LNormal5-43[facility] Medical CenterComment on above:Performed By: #### [id number] #### [facility] [address] [place], [place] [address]Esih Total0.8 mg/dLNormal0.0-1.1FWVUMedicine [facility] Hospital Comment on above:Performed By: #### [id number] #### [facility] [address] [place], [place] [address]GMG/Creat Ratio18 No HascgOzzuip95-49FbznlcUniversity Hospitals Geauga Medical CenterComment on above:Performed By: #### [id number] #### [facility] [address] [place], [place] [address]Vfxzhar [Mass/Vol]8.9 mg/dLNormal8.9-11.1FWVUMedicine Barnesville HospitalComment on above:Performed By: #### [id number] #### [facility] [address], [place] [address]Fcvglbje [Moles/Vol]104 mmol/OMduaxh553-469ImvkcyUniversity Hospitals Geauga Medical CenterComment on above:Performed By: #### [id number] #### [facility] [address], [place] [address]Ohambvjdsa [Mass/Vol]0.6 mg/dLNormal0.5-1.3FWVUMedicine Barnesville HospitalComment on above:Performed By: #### [id number] #### [facility] [address] [place], [place] [address]Mddophgz (S) [Mass/Vol]3.0 g/dLNormal1.4-4.0[facility] Medical CenterComment on above:Performed By: #### [id number] #### [facility] [address] [place], [place] [address]Kciocoa [Mass/Vol]92 mg/tAAzmgzr57-543TkgopwUniversity Hospitals Geauga Medical CenterComment on above:Performed By: #### [id number] #### [facility] [address] [place] [address], [place] [address]Leycekojl [Moles/Vol]3.7 mmol/LNormal3.5-5.3FWVUMedicine Barnesville HospitalComment on above:Performed By: #### [id number] #### [facility] [address] [place] [address]Xxivxct [Mass/Vol]6.8 g/dLNormal6.0-7.8[facility] Medical CenterComment on above:Performed By: #### [id number] #### [facility] [address] [place] [address]Bpfphu [Moles/Vol]136 mmol/LIaosqp856-891XjxasyUniversity Hospitals Geauga Medical CenterComment on above:Performed By: #### [id number] #### [facility] [address] [place], [place] [address]Jcdm nitrogen [Mass/Vol]11 mg/dLNormal5-21[facility] Medical CenterComment on above:Performed By: #### [id number] #### [facility] [address], [place] [address]Alcbd Panelon 89-09-2314Qarbmdnummu [Mass/Vol]239 mg/dLHigh 120-200[facility] Medical CenterComment on above:Performed By: #### [id number] #### [facility] [address] [place], [place] [address]Ojvbohemhie in HDL [Mass/Vol]88 mg/dLInvalid Interpretation CodeUniversity Hospitals Geauga Medical CenterComment on above:Result Comment: '>= 60 LOW RISK' '<= 40 HIGH RISK'Performed By: #### [id number] #### [facility] [address], [place] [address]Rrboquhjerk in LDL [Mass/Vol]144 mg/dLHigh<=129[facility] Medical CenterComment on above:Performed By: #### [id number] #### [facility] [address], [place] [address]Mmrxchcllrj in VLDL [Mass/Vol]40 mg/dLNormal7-40[facility] Medical CenterComment on above:Performed By: #### [id number] #### [facility] [address], [place] [address]Jahevenujatn [Mass/Vol]202 mg/dLHigh<=149[facility] Medical CenterComment on above:Performed By: #### [id number] #### [facility] [address], [place] [address]cVZQnd 75-36-7037bDMU453 mL/min/1.73 y2Ygxeep>=59[facility] Ge[facility] Medical CenterComment on above:Performed By: #### [id number] #### [facility] [address] [place], [place] [address]KBC, SERUM, OPEN SPINA BIFIDAon 11-12-9911NYA MOM0.95.[facility]OMS HealthcareAFP VALUE59.2 ng/mL.[facility] HealthcareCOMMENT:Comment.[facility] Comment on above:Amy Ramos, Ph.D., [facility] Director References: Available Upon Request. Multiples Of Median Cutoffs For AFP Elevations Hsieh 2.5 Black 2.8 IDD 2.0 Twins 4.5 Abbreviation Definitions IDD - Insulin Dep Diabetes OSBR - Open Spina Bifida Risk For further inquiries contact [employer] [facility] at [phone]. This test was developed and its performance characteristics determined by [facility]. It has not been cleared or approved by the Food and Drug Administration. Performed at: - [facility] [address], [place] [id number] Emergency Management Program Specialist: Dona Justin [facility], Phone: [phone] GEST. AGE ON COLLECTION DATE20.6. weeksNOCA HealthcareGESTAT. AGE BASED ONLMP. [facility] HealthcareComment on above:Recalculations are not recommended when gestational dating by LMP and ultrasound are within 10 days. INSULIN DEP DIABETESNo.[facility] HealthcareINTERPRETATIONComment.[facility] Comment on above:Interpretation: Screen Negative This result [...] Customer Services to discuss available options. The [employer] recommends amniocentesis be offered to women age 35 and older. MATERNAL AGE AT EDD30.7. yrNOCA HealthcareMULTIPLE GESTATIONNo.[facility] OSBR RISK 1 [id number].[facility] HospitalRACECaucasian.[facility] HospitalRESULTSReport. [facility] HospitalTEST RESULTS:Negative.[facility] HospitalUrkuomhkkiSNRULY033. lbsNOCA HealthcarePREGNANCY N N LMP [id number] 2 17 N 1 Y 146 N N N N N White/ CLINISYNCNOCA HealthcareUS OB 14+ WEEKS ANATOMY SCANon 61-33-2007UY OB 14+ WEEKS ANATOMY SCANEXAM: US OB [...] II, MD, PHD at 16-Jul-2025 08:07:07 AM [facility] TeleradiologyNormalNot AvailableComment on above:Order Comment: US OB ANATOMY SINGLE W US OB CERVICAL LENGTH Estimated Date of Delivery: 11/28/25 Gestational Age as of 06/22/2025: 14o5sBxvpojtzhg macro (dipstick) panel (U)on 61-75-0002Tqsofaxjs, UANegativeNegative - 4(70) +++ mg/dLNOMS HealthcareBlood, UANegativeNegative [...] - 1.03 NOMS HealthcareUrobilinogen, UA1.00.2 - 12 mg/dLNOCA HealthcareNOMS Healthcare RECURRENT VAGINITIS (HTRX)on 61-67-1308WXFKTWYDV LTJOLEY9KKRK Healthcare ATOPOBIUM VAGINAENot detectedNOMS HealthcareBVAB 2,3 (BACTERIAL VAGINOSIS ASSOCIATED BACTERIA 2, 3); MOBILUNCUS FQC3BHZI HealthcareBVAB 2,3 (BACTERIAL VAGINOSIS ASSOCIATED BACTERIA 2, 3); MOBILUNCUS SPPNot detectedNOMS Healthcare RADHA ALBICANS, PARAPSILOSIS, HZQOTCJESH2HRHO HealthcareCANDIDA ALBICANS, PARAPSILOSIS, TROPICALISNot detectedNOMS HealthcareCANDIDA ZHTPCSQF3SXBR HealthcareCANDIDA GLABRATANot detectedNOMS HealthcareCANDIDA GKVTDG1SOOF HealthcareCANDIDA KRUSEINot detectedNOMS HealthcareCHLAMYDIA YLMDYPAIWGC4XWOZ HealthcareCHLAMYDIA TRACHOMATISNot detectedNOMS HealthcareGARDNERELLA VAGINALIS 17.967AbnormalNOMS HealthcareGARDNERELLA VAGINALISDetectedAbnormalNOCA HealthcareInterpretation and review of laboratory resultsAbnormalNOMS Healthcare MEGASPHAERA (TYPES 1, 2)0NOMS HealthcareMEGASPHAERA (TYPES 1, 2)Not detectedNOMS HealthcareMYCOPLASMA MPSYEHBGXB4QAVD HealthcareMYCOPLASMA GENITALIUMNot detectedNOMS HealthcareNEISSERIA LHSBFKJZJTK1MLHY HealthcareNEISSERIA GONORRHOEAENot detectedNOMS HealthcareTRICHOMONAS TYRRLTUWH4UCIB Healthcare TRICHOMONAS VAGINALISNot detectedNOMS HealthcareNOCA HealthcareUrinalysis macro (dipstick) panel (U)on 61-04-6857Ejiqsvjja, UANegativeNegative - 4(70) +++ mg/dL [facility] HealthcareBlood, UANegativeNegative - 50 Teodoro/mcLNOMS HealthcareClarity, UA ClearNOMS HealthcareColor, UAYellowNOMS HealthcareGlucose, UANegativeNegative - 1999(110) ++++ mg/dLNOMS HealthcareInterpretation and review of laboratory resultsNormalNOMS HealthcareKetones, UANegativeNegative - 160(16) ++++ mg/dLNOMS HealthcareLeukocytes, UANegativeNegative - 500+++ Robinson/mcLNOMS Healthcare Nitrite, UANegativeNegative - PositiveNOMS HealthcarepH, UA65 - 9[facility] Protein, UANegativeNegative - 1999(20) ++++ mg/dLNOMS HealthcareSpec Grav, UA 1.0051 - 1.03NOMS HealthcareUrobilinogen, UA1.00.2 - 12 mg/dLNOMS HealthcareNOMS HealthcareUrinalysis macro (dipstick) panel (U)on 15-30-2997Nybfmuxfp, UA NegativeNegative - 4(70) +++ mg/dLNOMS HealthcareBlood, UANegativeNegative - 50 Teodoro/mcLNOMS HealthcareClarity, UAClearNOMS HealthcareColor, UAYellowNOMS HealthcareGlucose, UANegativeNegative - 1999(110) ++++ mg/dLNOMS Healthcare Interpretation and review of laboratory resultsNormalNOMS HealthcareKetones, UA NegativeNegative - 160(16) ++++ mg/dLNOMS HealthcareLeukocytes, UAPositive Negative - 500+++ Robinson/mcLNOMS HealthcareComment on above:smallNitrite, UA NegativeNegative - PositiveNOMS HealthcarepH, UA6.55 - 9NOMS HealthcareProtein, UANegativeNegative - 1999(20) ++++ mg/dLNOMS HealthcareSpec Grav, UA1.011 - 1.03 NOMS HealthcareUrobilinogen, UA0.20.2 - 12 mg/dLNOMS HealthcareNOMS Healthcare BOX TESTon 79-21-4751GJA TEST SENT OUTunityNOMS EdqjtadhdfCPB7xzkhdOHRF LcwojpzslbDZD06/9/25NOMS HealthcareUNITY BOX CLINISYNCCBC without diffon 16-79-1295Ziiqzjqycc (Bld) [Volume fraction]39.8 % [facility]Medica Health SystemHemoglobin (Bld) [Mass/Vol]13.2 g/dLProMedica Health SystemPlatelets (Bld) [#/Vol]390 10*3/uLProOhio State Harding HospitalRb Mcv (Fl) By Automated Count84.7[facility] SystemDrug Screen, Urineon 05-04-2025 Amphetamine/MethamphetamineNegativeMiddletown HospitalBarbituratesNegative [facility] HospitalBenzodiazepinesNegativeMiddletown HospitalCocaine MetaboliteNegativeMiddletown HospitalMethadoneNegativeMiddletown HospitalOpiatesNegativeMiddletown HospitalOxycodoneNegativeMiddletown HospitalPhencyclidineNegativeMiddletown HospitalThc Marijuana, UrineNegative [facility] HospitalHBV surface Ag IA Qlon 62-46-2213Nbjosorkl B Surface AntigenNegativeMiddletown HospitalHCV Ab IA Qlon 22-13-8433GPD Ab Ql (S) Non-ReactiveMiddletown HospitalHIV 1+2 Ab+HIV1 p24 Ag IA Qlon 72-06-9363BDO 1&2 AB/AGNon-ReactiveMiddletown HospitalHemoglobin A1con 61-89-7683XzF2s (Bld) [Mass fraction]5.3 %4.0 - 6.0 %M[facility]own HospitalNo Panel Information on 93-29-2259GFJE HealthcareRubella IGG immune statusOrdered By: Angeline Velasquez on 13-47-3589Zeynnel immune IgGKeenan Private Hospital SystemType and screenon 97-46-5911Xes/Rh(D)PositiveMiddletown HospitalHCG ( test) Ql (U)on 22-51-7332Eeemscbhtbgcmi and review of laboratory resultsAbnormalNOMS Healthcare Preg Test, UrPositiveNegativeNORay County Memorial HospitalNOCA HealthcareUS OB TRANSVAGINALon 00-38-8156[place]qf[place] [address] Ultrasound Report Signed Patient: JUHI COPE MR#: [id number] : 1995 Acct:[id number] Age/Sex: 30 / F ADM Date: 05/01/25 Loc: US Attending Dr: Nathan Pop D.O. Ordering Physician: Nathan Pop D.O. Date of Service: 05/01/25 Procedure(s): US OB transvaginal Accession Number(s): [id number] cc: Nathan Pop D.O.; Physician,Non-Staff Katherine [address] [place] [address] Patient Name: JUHI COPE MRN: [id number] date: 1995 Sex: F Assigned Patient Location: US Current Patient Location: US Accession/Order Number: [id number] Exam Date: 05/01/2025 08:57 Report Date: 05/01/2025 [...] Faria M.D. 05/01/2025 9:01 AM Dictation Location: [place] [address] Electronically authenticated by: [id number] Y Date: 05/01/2025 09:01 Dictated By: Will Faria M.D. Signed By: 05/01/25903 DD/ 0 TD/TT: Glass Handler:ANTHONYHRadiology, Radiologist, - 05/01/2025 [address] [place] [id number] Ultrasound Report Signed Patient: JUHI COPE MR#: [id number] : 1995 Acct:[id number] Age/Sex: 30 / F ADM Date: 05/01/25 Loc: US Attending Dr: Nathan Pop D.O. Ordering Physician: Nathan Pop D.O. Date of Service: 05/01/25 Procedure(s): US OB transvaginal Accession Number(s): [id number] cc: Nathan Pop D.O.; Physician,Non-Staff [facility] [address] [place] [address] Patient Name: JUHI COPE MRN: [id number] date: 1995 Sex: F Assigned Patient Location: US Current Patient Location: US Accession/Order Number: [id number] Exam Date: 05/01/2025 08:57 Report Date: 05/01/2025 [...] Faria M.D. 05/01/2025 9:01 AM Dictation Location: [place] [address] Electronically authenticated by: [id number] Y Date: 05/01/2025 09:01 Dictated By: Will Faria M.D. Signed By: 05/01/25903 DD/ 0 TD/TT: Glass Handler: [facility]OSPITALShalonda HealthcareRadiology Study observation (narrative)[facility] HealthcareUS OB TRANSVAGINALOrdered By: Radiologist Radiology on 76-58-5566QMAU Healthcare Work Phone: Urinalysis macro (dipstick) panel (U)on 05-01-2025 Bilirubin, UANegativeNegative - 4(70) +++ mg/dLNOMS HealthcareBlood, UANegative Negative - 50 Teodoro/mcLNOMS HealthcareClarity, UAClearNOMS HealthcareColor, UA YellowNOMS HealthcareGlucose, UANegativeNegative - 2000(110) ++++ mg/dLNOMS HealthcareInterpretation and review of laboratory resultsNormalNOCA Healthcare Ketones, UANegativeNegative - 160(16) ++++ mg/dLNOMS HealthcareLeukocytes, UA NegativeNegative - 500+++ Robinson/mcLNOMS HealthcareNitrite, UANegativeNegative - PositiveNOMS HealthcarepH, UA5.55 - 9NOMS HealthcareProtein, UANegativeNegative - 2000(20) ++++ mg/dLNOMS HealthcareSpec Grav, UA1.021 - 1.03[facility] Urobilinogen, UA1.00.2 - 12 mg/dLNOMS HealthcareNOMS HealthcareCHEMISTRYOrdered By: SYSTEM SYSTEM on 58-50-6547Vhtxmpeztjgw Lvl31.35 ng/mLInvalid Interpretation CodeRemisol ChemComment on above:Result Comment: 'F NON FOLLICULAR = 0.10 - 0.60' 'LUTEAL = 3.00 - 17.5' 'MIDLUTEAL = 3.30 - 18.6' 'POST-MENOPAUSE = 0.10 - 0.40' '-FIRST TRIMESTER = 8.30 - 66.5' 'SECOND TRIMESTER = 18.9 - 66.1' 'THIRD TRIMESTER = 35.8 - 312.4' 'MALES = 0.14 - 2.06'Progesteroneon 84-49-0184Hysgmplzvqqb Lvl31.35 ng/mLInvalid Interpretation LouUniversity Hospitals Geauga Medical CenterComment on above:Result Comment: 'F NON FOLLICULAR = 0.10 - 0.60' 'LUTEAL = 3.00 - 17.5' 'MIDLUTEAL = 3.30 - 18.6' 'POST-MENOPAUSE = 0.10 - 0.40' '-FIRST TRIMESTER = 8.30 - 66.5' 'SECOND TRIMESTER = 18.9 - 66.1' 'THIRD TRIMESTER = 35.8 - 312.4' 'MALES = 0.14 - 2.06'Performed By: #### [id number] #### [facility] Laboratory [address] [place], [place] [address]Pffbchljawmayz 88-50-5670Ljlzfbtixdqg6.2 ng/mLNormal.[facility] Physician GroupComment on above:Result Comment: Follicular phase 0.1 - 0.9 Luteal phase 1.8 - 23.9 Ovulation phase 0.1 - 12.0 First trimester 11.0 - 44.3 Second trimester 25.4 - 83.3 Third trimester 58.7 - 214.0 Postmenopausal 0.0 - 0.1 Performed at: - [facility] [id number] Emergency Management Program Specialist: Cm Sandoval PhD, Phone: [phone] PERFORMED BY: [facility] [address] [place] [address] PATHOLOGIST GUARD DANCE HALL ARNULFO THOMAS M.D.Performed By: #### PROG #### [facility] , Transvaginal Non-OBon 92-15-1291YU Transvaginal Non-OBExam Date/Time: 01/22/2025 16:22 EST Reason for Exam: N94.6 Report PLEASE SEE US Pelvis Non-OB Complete REPORT DATED: 01/22/2025. Ordering Provider: Nathan POP FINAL REPORT Dictated: 01/27/2025 10:11 am Siddharth Foy MD Signed (Electronic Signature): 01/27/2025 10:11 am Signed by: Siddharth Foy MD Transcribed by: ELOISA Technologist: [facility] HospitalmengUniversity Hospitals Geauga Medical CenterUS Pelvis Non-OB Completeon 08-60-5559AH Pelvis Non-OB CompleteExam Date/Time: 01/22/2025 16:24 EST [...] Kate Gonzalez MD Transcribed by: ELOISA Technologist: [facility] HospitalmengUniversity Hospitals Geauga Medical CenterIGP,APTIMA HPV,AGE GDLNon 86-98-5252WUL GDLN ACOG TESTINGNote.NOMS HealthcareComment on above:TESTS RESULT FLAG UNITS REF RANGE LAB Clinician Provided Cytology Information Source.............Cervix;Endocervix No. of containers..01 ThinPrep Vial Kenneth Smith... FLAG LEGEND: L-Low Normal,H-High Normal,LL-Alert Low,HH-Alert High <-Panic Low,>-Panic High,A-Abnormal,AA-Critical Abnormal Performed at: 01 = [address] [address] Lorencristian Oneal MD, IGP, RFX APTIMA HPV ASCUNote.[facility] SpringfieldComment on above:TESTS RESULT FLAG UNITS REF RANGE LAB DIAGNOSIS: 02 NEGATIVE FOR INTRAEPITHELIAL LESION OR MALIGNANCY. Specimen adequacy: 02 Satisfactory for evaluation. Endocervical and/or squamous metaplastic cells (endocervical component) are present. Performed by: 02 Pippa Calzada, Satellite Installation Technician ([facility]) . 02 Note: Note 02 The [...] <-Panic Low,>-Panic High,A-Abnormal,AA-Critical Abnormal Performed at: [address] [address] Loren Oneal MD, Performed at: =G - [facility] [address] [id number] Emergency Management Program Specialist: Loren Oneal MD, Phone: [phone] Performed at: [facility] [address] [id number] Emergency Management Program Specialist: Loren Oneal MD, Phone: [phone] BRUSH-SPATULA CERVIX ENDOCERVIX Beebe HealthcarePN 11-84-3836AHFKXjalaqocf (WHQ) JUHI COPE ([id number]) 1995 F Date Time Provider Department 04/29/24 [...] [I10] Encounter Status:Closed by CANDIS GARCES on 04/29/24[facility] CenterTanya 32-00-8154JMODHaymnywxm (Q) JUHI COPE ([id number]) 1995 F Date Time Provider Department 04/25/24 CHARLENE RODRIGUEZ INES During your visit today, we recorded the following information about you: Anna De Leon 04/25/2024 1:10 PM Signed Pt got in sooner for surgery with her local product accountant. Please cancel surgery and all pre and [...] Encounter Status:Closed by ANNA DE LEON on 04/25/24[facility] 12-LEADon 07[place]19[place] [id number] Electrocardiograph Report Signed Patient: JUHI COPE MR#: [id number] : 1995 Acct:[id number] Age/Sex: 28 / F ADM Date: 02/13/24 Loc: [facility] Attending Dr: Nathan Pop D.O. Ordering Physician: Nahtan Pop D.O. Date of Service: 02/13/24 Procedure(s): ECG 12 lead Accession Number(s): [id number] cc: [facility] Test Date: 2024-02-13 Pat Name: JUHI COPE Department: Room: - Gender: Female Liner Man: : 1995 Requested By: NATHAN POP Order Number: [id number] Reading MD: MARY KATE ORDAZ Measurements Intervals [place] Rate: 86 P: 31 MD: 133 QRS: 20 QRSD: 89 T: 47 QT: 374 QTc: 449 Interpretive Statements SINUS RHYTHM No previous ECG available for comparison Electronically Signed On 02-14-2024 6:50:27 EDT by MARY KATE ORDAZ Dictated By: Mary Kate Ordaz D.O. Signed By: 02/14/24 0650 DD/ 1455 TD/TT: Glass Handler:TBHRadiology, Radiologist, - 02/14/2024 [place] [address] Electrocardiograph Report Signed Patient: JUHI COPE MR#: [id number] : 1995 Acct:[id number] Age/Sex: 28 / F ADM Date: 02/13/24 Loc: PST Attending Dr: Nathan Pop D.O. Ordering Physician: Nathan Pop D.O. Date of Service: 02/13/24 Procedure(s): ECG 12 lead Accession Number(s): [id number] cc: [facility] Test Date: 2024-02-13 Pat Name: JUHI COPE Department: Room: - Gender: Female Liner Man: : 1995 Requested By: NATHAN POP Order Number: [id number] Reading MD: MARY KATE ORDAZ Measurements Intervals [place] Rate: 86 P: 31 MD: 133 QRS: 20 QRSD: 89 T: 47 QT: 374 QTc: 449 Interpretive Statements SINUS RHYTHM No previous ECG available for comparison Electronically Signed On 02-14-2024 6:50:27 EDT by MARY KATE ORDAZ Dictated By: Mary Kate Ordaz D.O. Signed By: 02/14/24 0650 DD/ 1455 TD/TT: Glass Handler: LANETTE Hooks 12-LEADOrdered By: Radiologist Radiology on 84-21-1835EDHJ [employer] Work Phone: ECG 12-LEADon 71-91-0088Lvkgzclzi Study observation (narrative)LANETTE Xiao PELVIS W/ TRANSVAGINALon 78-43-5774Joq [place] [address] Ultrasound Report Signed Patient: JUHI COPE MR#: [id number] : 1995 Acct:[id number] Age/Sex: 28 / F ADM Date: 01/15/24 Loc: [facility] Attending Dr: Nathan Pop D.O. Ordering Physician: Nathan Pop D.O. Date of Service: 01/15/24 Procedure(s): US pelvis w/ transvaginal Accession Number(s): [id number] cc: Nathan Pop D.O.; Physician,Non-Staff Katherine The [address] [address] Patient Name: JUHI COPE MRN: [id number] date: 1995 Sex: F Assigned Patient Location: [facility] Current Patient Location: [facility] Accession/Order Number: [id number] Exam Date: 01/15/2024 07:57 Report Date: 01/15/2024 [...] Signed By: 01/15/24 1144 DD/ 1142 TD/TT: Glass Handler:ANTHONYHRadiology, Radiologist, - 01/15/[address] [address] Ultrasound Report Signed Patient: JUHI COPE MR#: [id number] : 1995 Acct:[id number] Age/Sex: 28 / F ADM Date: 01/15/24 Loc: [facility] Attending Dr: Nathan Pop D.O. Ordering Physician: Nathan Pop D.O. Date of Service: 01/15/24 Procedure(s): US pelvis w/ transvaginal Accession Number(s): [id number] cc: Nathan Pop D.O.; Physician,Non-Staff Katherine [place] [id number] Patient Name: JUHI COPE MRN: [id number] date: 1995 Sex: F Assigned Patient Location: [facility] Current Patient Location: [facility] Accession/Order Number: [id number] Exam Date: 01/15/2024 07:57 Report Date: 01/15/2024 [...] Signed By: 01/15/24 1144 DD/ 1142 TD/TT: Glass Handler: LANETTE HealthcareRadiology Study observation (narrative)[facility] HealthcareUS PELVIS W/ TRANSVAGINALOrdered By: Radiologist Radiology on 47-33-4019GGZP Healthcare Work Phone: cNPTanya [phone] (Q) JUHI COPE ([id number]) 1995 F Date Time Provider Department 12/12/23 GEORGEBARBARACHARLENE Q During your visit today, we recorded the [...] [I10] Encounter Status:Closed by CANDIS GARCES on 12/12/23[facility] 24-22-0919ZCBAWmmhsg Visit (ANKURE) SUNILJUHI NIX ([id number]) 1995 F Date Time Provider Department 12/10/23 10:30 AM CHARLENE RODRIGUEZ During your visit today, we recorded the following information about you: Pulse Blood pressure Weight 98/minute 124/84 68.9 kg Charlene Rodriguez DO 12/10/2023 3:14 PM Signed [facility] SECTION FOR MINIMALLY INVASIVE GYNECOLOGIC SURGERY OUTPATIENT VISIT DATE 12/10/2023 OUTPATIENT VISIT TYPE Follow-up visit PRIMARY CARE PHYSICIAN: Denny Rodríguez [address] [place] [address] REFERRING PHYSICIAN: Self CHIEF COMPLAINT: No chief complaint on file. HISTORY OF PRESENT ILLNESS: Juhi Cope is a pleasant 28 year old female who presents for evaluation of pelvic pain. ========= MEGAN 8/21/23: IMPRESSION: Ms. 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) ANATOLIYJUHI ([id number]) 1995 F Date Time Provider Department 08/02/23 CHARLENE RODRIGUEZ [facility] During your visit today, we recorded [...] completed via Cover MyMeds. Juhi Cope (Morales: [id number]) - [id number] Orilissa 150MG tablets Status: Sent To Plan [...] [I10] Encounter Status:Closed by JENIFER LYNN on 08/02/23[facility] 55-18-0568IQQUNjbrmg Visit (GYMGME) JUHI COPE ([id number]) 1995 F Date Time Provider Department 07/16/23 11:30 AM CHARLENE RODRIGUEZ During your visit today, we recorded the following information about you: Blood pressure Last Period 136/90 07/08/23 Charlene Rodriguez DO 07/16/2023 12:41 PM Signed [facility] SECTION FOR MINIMALLY INVASIVE GYNECOLOGIC SURGERY OUTPATIENT VISIT DATE 07/16/2023 OUTPATIENT VISIT TYPE Follow-up visit PRIMARY CARE PHYSICIAN: Denny Rodríguez [address] [place] [address] REFERRING PHYSICIAN: Denny Rodríguez CHIEF COMPLAINT: No [...] additional bowel lesions identified 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 IMPRESSION: No deep infiltrating endometriosis. Glass Handler: PSCB Transcribe Date/Time: Jun 12 2023 2:54P Dictated by : ASHLEY DUKE MD This examination was interpreted and the report reviewed and electronically signed by: SONIDO FLAHERTY MD on Jun 12 2023 4:51PM EST [id number] Fayette Medical CenterCNPNon 79-07-6154DLCWOjvbtmznf (GYNMN) JUHI COPE ([id number]) 1995 F Date Time Provider Department 05/11/23 CHARLENE RODRIGUEZ [facility] During your visit today, we recorded the following information about you: [facility]awana [facility] 05[facility]11/2023 1:21 PM Signed Reason for call: [...] Takes aygestin 5mg daily. 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 Reviewed red flag bleeding symptoms that require trip to ER (soaking greater than one overnight pad per hour, chest pain, shortness of breath, fatigue, palpitations).. Advised keep appt. Gives verbal understanding. Appointments for Next 60 Days Date Time Provider Location Dept Phone 05/17/2023 1:00 PM HCARLENE ROD[facility]IGUEZ [facility] [place] [phone] Candis Suárez RN Allergies As of Date: 05/11/2023 (No Known Allergies) Date Reviewed: 05/09/2023 Reviewed by: Jihan Downs APRN.MECHANICAL SERVICE SPECIALIST - Fully Assessed Reason for Visit: Vaginal [...] [I10] Encounter Status:Closed by CANDIS WILLINGHAM on 05/11/23[facility] [id number] [facility]UHI COP[facility] ([id number]) 1995 F Date Time Provider Department 05/01/23 10:30 AM JIHAN DOWNS [facility] During your visit today, we recorded the following information about you: Blood pressure Weight Height Last Period 148/64 64.9 kg 1.575 m 04/22/23 Jihan Downs APRN.MECHANICAL SERVICE SPECIALIST 05/09/2023 11:46 AM Signed Juhi Cope is a 28 year old female who presents for problem visit for pain HPI: Pain is week before period and week of period. Worse on her period for every day she's bleeding Urinary - No symptoms GI - Always constipated. No meds [place] - painful always Pain is on left side and goes to the back. Whole lower back. Sometimes on right but not very often. No concerns No falls, car accidents, scoliosis. No trauma history Endo. 2 lap - 2020 - pain improved after surgery In the past Aygestin had helped No Pelvic floor physical therapy. Dr Billow recommend but hasn't been able to go. Tore with delivery but doesn't think it was bad. Here with a friend and her baby. They are present for the entire exam OB History T0 L0 SAB0 IAB0 Ectopic0 Multiple0 Live Births0 Form Designer History LMP: 03/26/2023 (Approximate), Having periods Age at Menarche: Age at First : Age at Menopause: Form Designer History Comments: Sexual Activity: Never; No partner [...] physical therapy - or can go locally pelvicrehab.edulio Trial flexeril at bedtime Can consider Baclofen [...] physical therapy - or can go locally pelvicInteractive Mobile Advertisingab.edulio Trial flexeril at bedtime Can consider Baclofen suppositories - let me know if you want to trial after you go to PT Contin (more content not included)...NormalPaulding County HospitalCHEMISTRY Ordered By: SYSTEM SYSTEM on 65-31-3425Awiozem [Mass/Vol]4.3 g/dLNormal3.3 - 5.0 gm/dLFT RemisolAlbumin/Globulin [Mass [...] [Mass/Vol]8.8 mg/dLLow8.9 - 11.1 mg/dLFTMC RemisolChloride [Moles/Vol]100 mmol/RPrh000 - 111 mmol/LFTMC RemisolCO2 [Moles/Vol]24 mmol/L Fzmnnh09 - 31 mmol/LFTMC RemisolCreatinine [Mass/Vol]1.0 mg/dLNormal0.5 - 1.3 mg/dLFTMC RemisolGFR/1.73 sq M.predicted among blacks MDRD (S/P/Bld) [Vol rate/Area]mL/min/1.73 s6Qscbtn>=59mL/min/1.73 m2FTMC Chem SGFR/1.73 sq M.predicted among non-blacks MDRD (S/P/Bld) [Vol rate/Area]mL/min/1.73 x5Jfodef >=59mL/min/1.73 m2FTMC Chem SGlobulin (S) [Mass/Vol]3.6 g/dLNormal1.4 - 4.0 gm/dLFTMC RemisolGlucose [Mass/Vol]104 mg/qLSrpgws79 - 199 mg/dLFTMC Remisol Potassium [Moles/Vol]3.6 mmol/LNormal3.5 - 5.3 mmol/LFTMC RemisolProtein [Mass/Vol]7.9 g/dLHigh6.0 - 7.8 gm/dLFTMC RemisolSodium [Moles/Vol]134 mmol/LLow 135 - 145 mmol/LFTMC RemisolUrea nitrogen [Mass/Vol]10 mg/dLNormal5 - 21 mg/dL FTMC RemisolUrea nitrogen/Creatinine [Mass ratio]10 mg/jzBbfuzg97 - 20FTMC RemisolHEMATOLOGYOrdered By: Amairani Jenkins on 59-93-7697Yvizmtmzsjbz Ql (Bld) Present (01/31/23 2:10 PM)NormalFTMC HemeManSSErythrocyte [...] fLNormal6.4 - 10.8 fLFTMC HemeAutoSSPlatelets (Bld) [#/Vol]471.0 E9/AIuoqth713.0 - 500.0 E9/LFTMC HemeAutoSSRBC (Bld) [#/Vol]4.3 E12/LNormal4.3 [...] - 0.5 E9/L [facility] HemeAutoSSLymphocytes/100 WBC (Bld)31.7 %Tdbfms43.0 - 50.0 %[facility] HemeAutoSS Lymphocytes/Leukocytes Auto (Bld) [Pure # fraction]2.4 E9/LNormal1.0 - 4.0 E9/L [facility] HemeAutoSSMonocytes/100 WBC (Bld)9.1 %Normal4.0 - 14.0 %[facility] HemeAutoSS Monocytes/Leukocytes Auto (Bld) [Pure # fraction]0.7 E9/LNormal0.2 - 1.0 E9/L [facility] HemeAutoSSNeutrophils/100 WBC (Bld)57.4 %Vbuvjm84.0 - 75.0 %[facility] HemeAutoSS Neutrophils/Leukocytes Auto (Bld) [Pure # fraction]4.3 E9/LNormal2.0 - 7.5 E9/L [facility] HemeAutoSSSEROLOGYOrdered By: Patricia Newton on 88-36-1847GXD.beta subunit (U) [Moles/Vol]NegativeNormalFT Man SeroURINALYSISOrdered By: Solomon Leal on 97-42-0405Wbabrrber Ql (U)Negative (01/31/23 1:57 PM)NormalNegativeFT UA Auto SSClarity (U)Clear (01/31/23 1:57 PM)NormalClearFTMC UA Auto SSColor (U)Yellow (01/31/23 1:57 PM)NormalYellowFTMC UA Auto SSEpithelial cells.squamous LM.HPF (Urine sed) [#/Area]3-4 /HPFNormal0-2/HPFFTMC UA Auto SSGlucose Test strip (U) [Mass/Vol]Negative (01/31/23 1:57 PM)NormalNegativeFTMC UA Auto SSHemoglobin Ql (U)Negative (01/31/23 1:57 PM)NormalNegativeFTMC UA Auto SSKetones (U) [Mass/Vol]Negative (01/31/23 1:57 PM)NormalNegativeFTMC UA Auto SSLithium.plasma/Ponderosa.RBC (Bld) [Mass ratio]0-3 /HPFNormal0-3/HPFFTMC UA Auto SSNitrite Ql (U)Negative (01/31/23 1:57 PM)NormalNegativeFT UA Auto SSpH (U)6.0 *NA* (01/31/23 1:57 PM)Invalid Interpretation Code5.0 - 9.0FT UA Auto SSProtein (U) [Mass/Vol]Negative (01/31/23 1:57 PM)NormalNegativeFT UA Auto SSSpecific gravity (U) [Rel density] 1.010 *NA* (01/31/23 1:57 PM)Invalid Interpretation Code1.005 - 1.030FT UA Auto SSUA Spec DescClean Catch (01/31/23 1:57 PM)NormalJEFF[facility] UA Auto SSUrobilinogen Qn (U)0.7663320 {Aspen'U}/dL Normal0.0 - 1.0 EU/dLFT UA Auto SSWBC Auto Ql (U)Negative (01/31/23 1:57 PM)NormalNegativeFT UA Auto SSWBC LM.HPF (Urine sed) [#/Area]0-5 /HPFNormal0-5/HPFFTMC UA Auto SSBLOOD BANKOrdered By: Teena Quiroz on 18-22-8608UOI/Rh InterpPositiveInvalid Interpretation CodeFT BB SubsectionABSC Gel InterpNegative (12/30/22 11:28 AM)NormalJEFFERSON [facility] BB SubsectionCHEMISTRYOrdered By: SYSTEM SYSTEM on 74-19-9535Ssmbj gap [Moles/Vol]12 mmol/LNormal6 - 16 mEq/LFTMC RemisolCalcium [Mass/Vol]8.6 mg/dLLow8.9 - 11.1 mg/dLFT RemisolChloride [Moles/Vol]103 mmol/L Uluxrj878 - 111 mmol/LFTMC RemisolCO2 [Moles/Vol]26 mmol/MMzfwqk01 - 31 mmol/L FT RemisolCreatinine [Mass/Vol]0.9 mg/dLNormal0.5 - 1.3 mg/dLFT Remisol GFR/1.73 sq M.predicted among blacks MDRD (S/P/Bld) [Vol rate/Area]mL/min/1.73 z6Esheto>=59mL/min/1.73 m2FT Chem SGFR/1.73 sq M.predicted among non-blacks MDRD (S/P/Bld) [Vol rate/Area]mL/min/1.73 z8Elbfuc>=59mL/min/1.73 m2FT Chem S Glucose [Mass/Vol]105 mg/fNHsbuqv81 - 199 mg/dLFTMC RemisolPotassium [Moles/Vol] 3.8 mmol/LNormal3.5 - 5.3 mmol/LFTMC RemisolSodium [Moles/Vol]137 mmol/LNormal 135 - 145 mmol/LFTMC RemisolUrea nitrogen [Mass/Vol]17 mg/dLNormal5 - 21 mg/dL FT RemisolUrea nitrogen/Creatinine [Mass ratio]19 mg/rrLjcwes07 - 20FTMC RemisolCOAGULATIONOrdered By: Courtney Case on 85-39-8120fMHR Coag (PPP) [Time]31.5 aXltjbz73.1 - 36.5 second(s)[facility] Auto CoagINR Coag (PPP) [Relative time]1.0 {INR}Invalid Interpretation CodeFTMC Auto CoagPT Coag (PPP) [Time]11.7 sNormal 9.4 - 12.5 second(s)[facility] Auto CoagHEMATOLOGYOrdered By: SYSTEM SYSTEM on 57-40-7567Tnfkhnkow/100 WBC (Bld)1.2 %Normal0.0 - 2.0 %[facility] HemeAutoSS Basophils/Leukocytes Auto (Bld) [Pure # fraction]0.1 E9/LNormal0.0 - 0.2 E9/L [facility] HemeAutoSSEosinophils/100 WBC (Bld)4.1 %Normal0.0 - 8.0 %[facility] HemeAutoSS Eosinophils/Leukocytes Auto (Bld) [Pure # fraction]0.2 E9/LNormal0.0 - 0.5 E9/L [facility] HemeAutoSSLymphocytes/100 WBC (Bld)40.5 %Egpsch55.0 - 50.0 %[facility] HemeAutoSS Lymphocytes/Leukocytes Auto (Bld) [Pure # fraction]2.3 E9/LNormal1.0 - 4.0 E9/L [facility] HemeAutoSSMonocytes/100 WBC (Bld)7.6 %Normal4.0 - 14.0 %[facility] HemeAutoSS Monocytes/Leukocytes Auto (Bld) [Pure # fraction]0.4 E9/LNormal0.2 - 1.0 E9/L [facility] HemeAutoSSNeutrophils/100 WBC (Bld)46.6 %Ituefw48.0 - 75.0 %[facility] HemeAutoSS Neutrophils/Leukocytes Auto (Bld) [Pure # fraction]2.6 E9/LNormal2.0 - 7.5 E9/L [facility] HemeAutoSSHEMATOLOGYOrdered By: Courtney Tang on 80-93-1754Szhlonsiojw distribution width (RBC) [Ratio]14.1 %Swxcmt36.9 - 14.2 %[facility] HemeAutoSS Hematocrit (Bld) [Volume fraction]31.5 %Low34.0 - 46.0 %[facility] HemeAutoSS Hemoglobin (Bld) [Mass/Vol]10.0 g/dLLow12.0 - 16.0 gm/dLFTMC HemeAutoSSMCH (RBC) [Entitic mass]25.3 pgLow27.0 - 34.0 pgFTMC HemeAutoSSMCHC (RBC) [Mass/Vol]31.8 g/nDSqshje55.4 - 36.0 gm/dLFTMC HemeAutoSSMCV (RBC) [Entitic vol]79.6 fLLow80.0 - 100.0 fLFTMC HemeAutoSSPlatelet mean volume (Bld) [Entitic vol]7.7 fLNormal6.4 - 10.8 fLFTMC HemeAutoSSPlatelets (Bld) [#/Vol]264.0 E9/TPsuqod059.0 - 500.0 E9/LFTMC HemeAutoSSRBC (Bld) [#/Vol]4.0 E12/LLow4.3 - 5.9 E12/LFTMC HemeAutoSS WBC corrected for nucl RBC Auto (Bld) [#/Vol]5.7 E9/LNormal4.0 - 11.0 E9/LFTMC HemeAutoSSURINALYSISOrdered By: Courtney Case on 45-85-0920Eguzxlrm LM Ql (Urine sed)Trace /HPFNormalTrace/HPFFTMC UA Auto SSBilirubin Ql (U)Negative (12/30/22 8:53 AM)NormalNegativeJEFFERSON [facility] UA Auto SSClarity (U)Clear (12/30/22 8:53 AM)NormalClearFJIM TALIAFERR[facility] [place] UA Auto SSColor (U)Yellow (12/30/22 8:53 AM)NormalYellowFT UA Auto SSEpithelial cells.squamous LM.HPF (Urine sed) [#/Area]0-2 /HPFNormal0-2/HPFFTMC UA Auto SSGlucose Test strip (U) [Mass/Vol]Negative (12/30/22 8:53 AM)NormalNegativeJEFFERSON [facility] [place] UA Auto SSHemoglobin Ql (U)2+ *ABN* (12/30/22 8:53 AM)Invalid Interpretation CodeNegativeJEFFERSON COUNTY HOSPITAL [facility] [place] UA Auto SSKetones (U) [Mass/Vol]Negative (12/30/22 8:53 AM)NormalNegativeJEFFERSON [facility] UA Auto SSLithium.plasma/Ponderosa.RBC (Bld) [Mass ratio]4-20 /HPFNormal0-3/HPFFTMC UA Auto SSNitrite Ql (U)Negative (12/30/22 8:53 AM)NormalNegativeJEFFERSON [facility] [place] UA Auto SSpH (U)6.0 *NA* (12/30/22 8:53 AM)Invalid Interpretation Code5.0 - 9.0FT UA Auto SSProtein (U) [Mass/Vol]Negative (12/30/22 8:53 AM)NormalNegativeJEFFERSON [facility] [place] UA Auto SSSpecific gravity (U) [Rel density] 1.025 *NA* (12/30/22 8:53 AM)Invalid Interpretation Code1.005 - 1.030FT UA Auto SSUA Spec DescClean Catch (12/30/22 8:53 AM)NormalJEFFERSON COUNTY HOS[facility]ITAL [facility] [place] UA Auto SSUrobilinogen Qn (U)0.9920301 {Aspen'U}/dL Normal0.0 - 1.0 EU/dLJEFFERSON COUNTY HOSPITAL – [place] UA Auto SSWBC Auto Ql (U)Negative (12/30/22 8:53 AM)NormalNegativeJEFFERSON COUNTY HOS[facility]ITAL [facility] UA Auto SSWBC LM.HPF (Urine sed) [#/Area]0-5 /HPFNormal0-5/HPFJEFFERSON COUNTY HOSPITAL – [facility] UA Auto SSOffice Visiton 55-29-5685Fldguc-up [id number] Juhi Cope 1995 F Date Provider Department Center 12/05/2022 [id number]-ASHEXYOSL, GINA [facility] None Chart Close Cosign Required by: Opal Ross MD[VARUND] No family history on file Level of Service:45343 MD OFFICE/OUTPATIENT ESTABLISHED LOW MDM 20-29 MIN (GE,GC) Reason for Visit and Comments: Blood Pressure Check [299][facility] SHSProgress Noteon 46-42-7748Ayxplewc Note Attestation signed by Opal Ross MD at 12/05/2022 3:19 PM [facility]: This patient [facility] in the [facility] by the resident. I reviewed [...] about 4 weeks (around 01/02/2023) for Visit .[facility] SHSProgress NoteVital signs BP 127/87 Weight 149.2lb Pulse 106 Temp 96.7NoSt. [facility] SHSProgress Noteon 27-08-4218Upvzldoi Note Late entry due to patient care. Resident Diallo notified of B.P 138/96 heart rate 119 around 1236 see flowsheet. Also notified checked in 1 hour via orders and B.P 143/87 pulse 111. Clarified if should check in 1 hour according to orders. . Also notified patient has discharge order in. Resident Lacy states No on rechecking. Ok to discharge. Will make patient aware.[facility] SHSProgress NotePOSTPARTUM VAGINAL DELIVERY POST DAY # [...] Name: DO Vanessa Zambrano DO 12/02/2022, 5:09 [facility]42on 85-18-37160905.5mm flanges given to patient. Encouraged her to call for observation of pump session and smaller flanges. Martha in NICU to assist with personal pump.Normal [facility] SHSCARECOORDon 41-94-7089AICECXWNP31 year old admitted for induction of labor [...] to home. Denies any concerns at this time.[facility] SHSProgress Noteon 63-41-2422Nvyafbfv Note NOTE - VAGINAL DELIVERY POST DAY [...] with more than 50% of the total phup-hj-euxz time of the visit in counseling/coordination of care. , 9:22 [facility] XTN60zx 72-85-136666Rcfdl given to patient and educated how to use and to bring to infant [facility] QVU70Ifpkxf pump use indicated for this pt. 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 Bowden; Dr. Kramer Information: Information for the patient's : Francie Cope [[id number]] Information for the patient's : Francie Cope [[id number]] Description: normal Meconium Noted: No Anesthesia: epidural [...] No results found for: RUBELLAMILADYG Irina Kramer, DO 11/30/2022, 4:04 [facility] SHSProgress Noteon 79-22-9117Lulrxuol NoteFoley catheter inserted by Andi Bacon RN, catheter drained and emptied for 900cc. Catheter secured to leg.[facility] SHSProgress NotePatient up to bathroom but remains unable to void. Bladder scan completed and reads >570. Sent secure message to Dr. Ruiz letting her know the above. Instructed to place chauhan catheter.[facility] ServicesProgress Note Secure message sent to Dr. Gamez stating patient is having difficulty voiding, patient's perineum is very swollen, and that patient was straight cathed for 950ml at noon. Received order for benadryl to help with swelling. [facility] ServicesProess NoteNutrition rescreen completed. Chart reviewed. Patient to be monitored and followed by the diet point of care technician. Suad Samuels, CRISSUpstate University Hospital Community Campus SHSProgress NotePatient unable to void, last straight cathed at 0400. Bladder scan obtained for >928 ml, fundus +2 and shifted to right. Patient straight cathed on attempt x2 by Andi Bacon RN for 950cc. Will continue to monitor.[facility] SHSCAREPLNon 67-15-1899NEBLTWXNbp patient will continue to make cervical change. Clotilde Mg, RNUpstate University Hospital Community Campus SHSLaboratory - Hematology and Cell countsOrdered By: Lucrecia Cervantes on 81-64-9382Fyoyivkuk (Bld) [#/Vol]386 10*3/uL140 - 440 10*3/uLSuselect medical specialty hospital [facility] HealthPlatelets (Bld) [#/Vol]Ordered By: Lucrecia Cervantes on 19-08-6741Xjshngenmxphji and review of laboratory resultsNormal [facility] HealthS. agalactiae DNA TENA+probe Ql (Unsp spec)on 11-29-2022 Group B Strep ScreenNot detectedNot DetectedScci Hospital Lima HealthInterpretation and review of laboratory resultsNoCommunity Memorial HospitalMethodology: real-time PCRSumGeorgetown Behavioral Hospital HealthABO and Rh group Confirm Nom (Bld)on 30-53-5177HEL group Nom (Bld)OSumma HealthD Ag Ql (RBC)PositiveSHarrison Community Hospital HealthBlood type and Crossmatch panel (Bld)on 52-84-7103CIE group Nom (Bld)OSsalem city hospital HealthBlood group antibody screen GEL QlNegativeSumma HealthD Ag Ql (RBC)PositiveSHarrison Community Hospital HealthCBC panel Auto (Bld)Ordered By: Lauren Ayers on 69-89-0280Oueyhajlwep distribution width (RBC) [Ratio]13.3 %11.5 - 14.5 %[facility] HealthHematocrit (Bld) [Volume fraction]33.8 %Low35.0 - 47.0 %[facility] HealthHemoglobin (Bld) [Mass/Vol] 11.2 g/dLLow11.7 - 16.0 g/dLSsalem city hospital HealthInterpretation and review of laboratory resultsAbnormGuernsey Memorial Hospital (RBC) [Entitic mass]28.0 pg26.0 - 34.0 pgSKindred Hospital LimaHC (RBC) [Mass/Vol]33.1 %32.0 - 36.0 %[facility] Medical CenterV (RBC) [Entitic vol]84.4 fL80.0 - 98.0 fLSumma HealthPlatelet mean volume (Bld) [Entitic vol]8.3 fL7.4 - 12.4 fLSumma HealthPlatelets (Bld) [#/Vol]319 10*3/uL140 - 440 10*3/uL [facility]ma HealthRBC (Bld) [#/Vol]4.00 10*6/uL3.8 - 5.20 10*6/uLSumma HealthWBC (Bld) [#/Vol]18.9 10*3/uLHigh3.6 - 10.7 10*3/uLSumma HealthSumma HealthComprehensive metabolic 1998 panelon 54-18-5288Spzygug [Mass/Vol]3.9 g/dL3.5 - 5.0 g/dLSumma HealthALP [Catalytic [...] HealthGFR/1.73 sq M.predicted MDRD (S/P/Bld) [Vol rate/Area]- Samaritan HospitalComment on above: Calculation based on the Chronic Kidney Disease Epidemiology Collaboration (CKD- EPI) equation refitwithout adjustment for raceGlucose [Mass/Vol]158 mg/nUEnhw19 - 100 mg/dLSumma HealthInterpretation and review of laboratory resultsAbnormal Summa HealthPotassium [Moles/Vol]4.1 mmol/L3.5 - 5.1 mmol/LSumma HealthProtein [Mass/Vol]7.5 g/dL6.3 - 8.2 g/dLSumma HealthSodium [Moles/Vol]133 mmol/SZup769 - 145 mmol/LSumma HealthUrea nitrogen [Mass/Vol]5 mg/dLLow7 - 17 mg/dLSumma HealthSumma HealthLaboratory - Hematology and Cell countsOrdered By: Shruthi Fontana on 28-28-1178Tflwdhrtw (Bld) [#/Vol]335 10*3/uL140 - 440 10*3/uLSumma HealthPlatelets (Bld) [#/Vol]Ordered By: Shruthi Fontana on 11-28-2022 Interpretation and review of laboratory resultsNoClarinda Regional Health Center CHEMISTRYOrdered By: SYSTEM SYSTEM on 52-16-4719Tvqp T4 index Calc [Mass/Vol] 5.98 ng/dLNormal5.90 - [...] Code0.1 - 0.9 mg/dL [facility] RemisolChloride [Moles/Vol]102 mmol/ESpqbzm201 - 111 mmol/LFTMC RemisolCO2 [Moles/Vol]18 mmol/LLow21 - 31 mmol/LFTMC RemisolCreatinine [Mass/Vol]0.6 mg/dL Normal0.5 - 1.3 mg/dLFTMC RemisolGFR/1.73 sq M.predicted among blacks MDRD (S/P/Bld) [Vol rate/Area]mL/min/1.73 g2Rxsohx>=59mL/min/1.73 m2FT Chem S GFR/1.73 sq M.predicted among non-blacks MDRD (S/P/Bld) [Vol rate/Area] mL/min/1.73 c9Osjazi>=59mL/min/1.73 m2FT Chem SGlobulin (S) [Mass/Vol]4.0 g/dL Normal1.4 - 4.0 gm/dLFT RemisolPotassium [Moles/Vol]3.7 mmol/LNormal3.5 - 5.3 mmol/LFTMC RemisolProtein [Mass/Vol]7.1 g/dLNormal6.0 - 7.8 gm/dLFT Remisol Sodium [Moles/Vol]132 mmol/LJmp804 - 145 mmol/LFTMC RemisolUrate [Mass/Vol]4.9 mg/dLNormal2.2 - 7.4 mg/dLFTMC RemisolUrea nitrogen [Mass/Vol]7 mg/dLNormal5 - 21 mg/dLFT RemisolCOAGULATIONOrdered By: Amairani Jenkins on 98-98-8588iCIH Coag (PPP) [Time]25.3 eHyereo83.1 - 36.5 second(s)[facility] Auto Coag Fibrin+Fibrinogen fragments (S) [Mass/Vol]>10 and <40 *ABN* (11/27/22 3:14 PM)Invalid Interpretation Code<10FT Man SeroFibrinogen Coag (PPP) [Mass/Vol]539 mg/pEEsoj820 - 393 mg/dLFT Auto CoagINR Coag (PPP) [Relative time]0.9 {INR}Invalid Interpretation CodeFT Auto CoagPT Coag (PPP) [Time]10.1 sNormal9.4 - 12.5 second(s)[facility] Auto CoagHEMATOLOGYOrdered By: Raquel Arteaga on 96-20-5678Qujcrmcwhsn distribution width (RBC) [Ratio]12.9 %Ecarbt91.9 - 14.2 % [facility] HemeAutoSSHematocrit (Bld) [Volume fraction]34.2 %Jtuuvi82.0 - 46.0 %FT HemeAutoSSHemoglobin (Bld) [Mass/Vol]11.0 g/dLLow12.0 - 16.0 gm/dLFTMC HemeAutoSSMCH (RBC) [Entitic mass]27.3 hySliyui23.0 - 34.0 pgFTMC HemeAutoSSMCHC (RBC) [Mass/Vol]32.3 g/eWRutkgj61.4 - 36.0 gm/dLFTMC HemeAutoSSMCV (RBC) [Entitic vol]84.6 fJQjowdm47.0 - 100.0 fLFT HemeAutoSSPlatelet mean volume (Bld) [Entitic vol]8.2 fLNormal6.4 - 10.8 fLFT HemeAutoSSPlatelets (Bld) [#/Vol]273.0 E9/XTfiqtn412.0 - 500.0 E9/LFTMC HemeAutoSSRBC (Bld) [#/Vol]4.0 E12/LLow4.3 - 5.9 E12/LFC HemeAutoSSWBC corrected for nucl RBC Auto (Bld) [#/Vol]15.7 E9/LHigh4.0 - 11.0 E9/LFTMC HemeAutoSSComment on above:Result Comment: Slide reviewed by ts Unable to obtain accurate platelet count due to platelet clumping. Platelet count estimate appears normal on slide..URINALYSISOrdered By: Amairani Jenkins on 96-48-3694Qdbrsepcf Ql (U)Negative (11/27/22 1:55 PM)NormalNegativeFT UA Auto SSClarity (U)Clear (11/27/22 1:55 PM)NormalClearFJIM TALIAFERRO [facility] UA Auto SSColor (U)Yellow (11/27/22 1:55 PM)NormalYellowFT UA Auto SSEpithelial cells.squamous LM.HPF (Urine sed) [#/Area]3-4 /HPFNormal0-2/HPFFT UA Auto SSGlucose Test strip (U) [Mass/Vol]Negative (11/27/22 1:55 PM)NormalNegativeFT UA Auto SSHemoglobin Ql (U)1+ *ABN* (11/27/22 1:55 PM)Invalid Interpretation CodeNegativeFT UA Auto SSKetones (U) [Mass/Vol]Negative (11/27/22 1:55 PM)NormalNegativeFT UA Auto SSLithium.plasma/Ponderosa.RBC (Bld) [Mass ratio]4-20 /HPFNormal0-3/HPFFTMC UA Auto SSNitrite Ql (U)Negative (11/27/22 1:55 PM)NormalNegativeFT UA Auto SSpH (U)6.5 *NA* (11/27/22 1:55 PM)Invalid Interpretation Code5.0 - 9.0FT UA Auto SSProtein (U) [Mass/Vol]Negative (11/27/22 1:55 PM)NormalNegativeJEFFERSON [facility] UA Auto SSSpecific gravity (U) [Rel density] 1.010 *NA* (11/27/22 1:55 PM)Invalid Interpretation Code1.005 - 1.030FT UA Auto SSUA Spec DescClean Catch (11/27/22 1:55 PM)NormalJEFFERSON COUNTY HOS[facility]ITAL [facility] UA Auto SSUrobilinogen Qn (U)0.8479666 {Aspen'U}/dL Normal0.0 - 1.0 EU/dLFTMC UA Auto SSWBC Auto Ql (U)Negative (11/27/22 1:55 PM)NormalNegativeJEFFERSON [facility] UA Auto SSWBC LM.HPF (Urine sed) [#/Area]0-5 /HPFNormal0-5/HPFFTMC UA Auto SSCHEMISTRYOrdered By: SYSTEM SYSTEM on 07-14-2022 Albumin [Mass/Vol]3.6 g/dLNormal3.3 - 5.0 gm/dLFTMC RemisolAlbumin/Globulin [Mass ratio]1.1 {ratio}Normal1.1 - 2.2FTMC RemisolALP [Catalytic activity/Vol]41 [iU]/jPbyodb31 - 98 Int._Unit/LFTMC RemisolALT No additional P-5'-P [Catalytic activity/Vol]19 [iU]/dNormal6 - 46 Int._Unit/LFTMC RemisolAnion gap [Moles/Vol] 11 mmol/LNormal6 - 16 mEq/LFTMC RemisolAST [Catalytic activity/Vol]21 [iU]/d Normal5 - 43 Int._Unit/LFTMC RemisolBilirubin [Mass/Vol]0.7 mg/dLNormal0.0 - 1.1 mg/dLFTMC RemisolBilirubin.direct [Mass/Vol]0.1 mg/dLNormal0.1 - 0.4 mg/dLFTMC RemisolBilirubin.indirect [Mass or moles/Vol]0.6 mg/dLNormal0.1 - 0.9 mg/dLFTMC RemisolCalcium [Mass/Vol]8.9 mg/dLNormal8.9 - 11.1 mg/dLFTMC RemisolChloride [Moles/Vol]107 mmol/JIsizim637 - 111 mmol/LFTMC RemisolCO2 [Moles/Vol]22 mmol/L Bcfncm29 - 31 mmol/LFTMC RemisolCreatinine [Mass/Vol]0.6 mg/dLNormal0.5 - 1.3 mg/dLFTMC RemisolGFR/1.73 sq M.predicted among blacks MDRD (S/P/Bld) [Vol rate/Area]mL/min/1.73 i9Emqaoj>=59mL/min/1.73 m2[facility] Chem SGFR/1.73 sq M.predicted among non-blacks MDRD (S/P/Bld) [Vol rate/Area]mL/min/1.73 i6Iokaol >=59mL/min/1.73 m2[facility] Chem SGlobulin (S) [Mass/Vol]3.3 g/dLNormal1.4 - 4.0 gm/dLFTMC RemisolGlucose [Mass/Vol]99 mg/rBIrbjko60 - 199 mg/dLFTMC Remisol Potassium [Moles/Vol]3.5 mmol/LNormal3.5 - 5.3 mmol/LFTMC RemisolProtein [Mass/Vol]6.9 g/dLNormal6.0 - 7.8 gm/dLFTMC RemisolSodium [Moles/Vol]136 mmol/L Radaqr964 - 145 mmol/LFTMC RemisolUrea nitrogen [Mass/Vol]8 mg/dLNormal5 - 21 mg/dLFTMC RemisolUrea nitrogen/Creatinine [Mass ratio]13 mg/qgXoeeuq55 - 20FT[facility] RemisolHEMATOLOGYOrdered By: SYSTEM SYSTEM on [id number]/100 WBC (Bld) 0.3 %Normal0.0 - 2.0 %[facility] [...] 7.5 E9/LFTMC HemeAutoSSHEMATOLOGYOrdered By: Teena Quiroz on [id number] distribution width (RBC) [Ratio]12.9 %Normal 10.9 - 14.2 %[facility] HemeAutoSSHematocrit (Bld) [Volume fraction]33.6 %Low34.0 - 46.0 %[facility] HemeAutoSSHemoglobin (Bld) [Mass/Vol]11.5 g/dLLow12.0 - 16.0 gm/dL [facility] HemeAutoSSMCH (RBC) [Entitic mass]28.5 ahZhpazb21.0 - 34.0 pgFTMC HemeAutoSSMCHC (RBC) [Mass/Vol]34.1 g/xCFcgupk58.4 - 36.0 gm/dLFT HemeAutoSS MCV (RBC) [Entitic vol]83.5 sMLqlkod25.0 - 100.0 fLFT HemeAutoSSPlatelet mean volume (Bld) [Entitic vol]8.1 fLNormal6.4 - 10.8 fLJE[facility] [place] HemeAutoSSPlatelets (Bld) [#/Vol]271.0 E9/JWmrvvv891.0 - 500.0 E9/[facility] HemeAutoSSRBC (Bld) [#/Vol] 4.0 E12/LLow4.3 - 5.9 E12/[facility] HemeAutoSSWBC corrected for nucl RBC Auto (Bld) [#/Vol]13.9 E9/LHigh4.0 - 11.0 E9/[facility] HemeAutoSSURINALYSISOrdered By: Deirdre Gilliam on 32-49-8867Lmjplszz LM Ql (Urine sed)Trace /HPFNormalTrace/HPFJEFFERSON [facility] H[facility] – [facility] UA Auto SSBilirubin Ql (U)Negative (07/14/22 5:00 AM)NormalNegativeJEFFERSON COUNTY HOSPITAL – [facility]URI[facility] UA Auto SSClarity (U)Clear (07/14/22 5:00 AM)NormalClearFJIM TAL[facility] [place] UA Auto SSColor (U)Yellow (07/14/22 5:00 AM)NormalYellowFT UA Auto SSEpithelial cells.squamous LM.HPF (Urine sed) [#/Area]3-4 /HPFNormal0-2/HPFFTMC UA Auto SSGlucose Test strip (U) [Mass/Vol]Negative (07/14/22 5:00 AM)NormalNegativeJEFFERSON COUNTY HOS[facility]ITAL – [facility] UA Auto SSHemoglobin Ql (U)Trace *ABN* (07/14/22 5:00 AM)Invalid Interpretation CodeNegativeJEFFERSON COUNTY HOSPITAL – [facility] UA Auto SSKetones (U) [Mass/Vol]Negative (07/14/22 5:00 AM)NormalNegativeJEFFERSON COUNTY HOS[facility] UA Auto SSLithium.plasma/Ponderosa.RBC (Bld) [Mass ratio]0-3 /HPFNormal0-3/HPFJEFFERSON COUNTY HOSPITAL – [facility] UA Auto SSMucus Ql (Urine sed)Trace (07/14/22 5:00 AM)NormalJEFFERSON COUNTY HOSPITAL – [facility] UA Auto SSNitrite Ql (U)Negative (07/14/22 5:00 AM)NormalNegativeJEFFERSON COUNTY HOS[facility] UA Auto SSpH (U)6.0 *NA* (07/14/22 5:00 AM)Invalid Interpretation Code5.0 - 9.0[facility] UA Auto SSProtein (U) [Mass/Vol]Negative (07/14/22 5:00 AM)NormalNegativeJEFFERSON COUNTY H[facility] UA Auto SSSpecific gravity (U) [Rel density] 1.020 *NA* (07/14/22 5:00 AM)Invalid Interpretation Code1.005 - 1.030[facility] U[facility] Auto SSUA Spec DescClean Catch (07/14/22 5:00 AM)NormalJEFFERSON COUNTY HOSPITAL – [facility]URI[facility] UA Auto SSUrobilinogen Qn (U)0.0864344 {Aspen'U}/dLNormal0.0 - 1.0 EU/dLJEFFERSON COUNTY HOSPITAL – [facility] UA Auto SSWBC Auto Ql (U)Negative (07/14/22 5:00 AM)NormalNegativeJEFFERSON COUNTY H[facility] UA Auto SSWBC LM.HPF (Urine sed) [#/Area]0-5 /HPFNormal0-5/HPFJEFFERSON COUNTY HOSPITAL – [facility] UA Auto SSCHEMISTRYOrdered By: SYSTEM SYSTEM on 46-97-2049Nbgirqe [Mass/Vol]4.4 g/dLNormal3.3 - 5.0 gm/dLJEFFERSON COUNTY HOSPITAL – [facility] Remisol Albumin/Globulin [Mass ratio]1.1 {ratio}Normal1.1 - 2.2[facility] RemisolALP [Catalytic activity/Vol]64 [iU]/eLmwkrf05 - 98 Int._Unit/LFTMC RemisolALT No additional P-5'-P [Catalytic activity/Vol]107 [iU]/dHigh6 - 46 Int._Unit/LFTMC RemisolAST [Catalytic activity/Vol]63 [iU]/dHigh5 - 43 Int._Unit/LFTMC Remisol Bilirubin [Mass/Vol]1.5 mg/dLHigh0.0 - 1.1 mg/dLFTMC RemisolBilirubin.direct [Mass/Vol]0.2 mg/dLNormal0.1 - 0.4 mg/dLFTMC RemisolBilirubin.indirect [Mass or moles/Vol]1.3 mg/dLHigh0.1 - 0.9 mg/dLFTMC RemisolCholesterol [Mass/Vol]193 mg/cPJhuiqw583 - 200 mg/dLFTMC RemisolCholesterol in HDL [Mass/Vol]64 mg/dL Invalid Interpretation CodeFTMC RemisolCholesterol in LDL [Mass/Vol]116 mg/dL Normal<=129mg/dLFTMC RemisolCholesterol in VLDL [Mass/Vol]13 mg/dLNormal7 - 40 mg/dLFTMC RemisolGlobulin (S) [Mass/Vol]3.9 g/dLNormal1.4 - 4.0 gm/dLFTMC RemisolProtein [Mass/Vol]8.3 g/dLHigh6.0 - 7.8 gm/dLFTMC RemisolTriglyceride [Mass/Vol]67 mg/dLNormal<=149mg/dLFTMC RemisolCOAGULATIONOrdered By: Courtney Case on 37-23-1078GYN Coag (PPP) [Relative time]1.0 {INR}Invalid Interpretation Code [facility] Auto CoagPT Coag (PPP) [Time]12.4 wKxyhhn00.2 - 12.9 second(s)[facility] Auto CoagHEMATOLOGYOrdered By: SYSTEM SYSTEM on 07-42-2195Cjhppsrwh/100 WBC (Bld)0.7 %Normal0.0 - 2.0 %[facility] HemeAutoSSBasophils/Leukocytes Auto (Bld) [Pure # fraction]0.0 E9/LNormal0.0 - 0.2 E9/LFTMC HemeAutoSSEosinophils/100 WBC (Bld)3.2 %Normal0.0 - 8.0 %[facility] HemeAutoSSEosinophils/Leukocytes Auto (Bld) [Pure # fraction]0.2 E9/LNormal0.0 - 0.5 E9/LFTMC HemeAutoSSLymphocytes/100 WBC (Bld) 31.9 %Ypqrmy53.0 - 50.0 %[facility] HemeAutoSSLymphocytes/Leukocytes Auto (Bld) [Pure # fraction]1.9 E9/LNormal1.0 - 4.0 E9/LFTMC HemeAutoSSMonocytes/100 WBC (Bld)9.1 %Normal4.0 - 14.0 %[facility] HemeAutoSSMonocytes/Leukocytes Auto (Bld) [Pure # fraction]0.5 E9/LNormal0.2 - 1.0 E9/LFTMC HemeAutoSSNeutrophils/100 WBC (Bld) 55.1 %Bzhlze65.0 - 75.0 %[facility] HemeAutoSSNeutrophils/Leukocytes Auto (Bld) [Pure # fraction]3.3 E9/LNormal2.0 - 7.5 E9/LFTMC HemeAutoSSHEMATOLOGYOrdered By: Kayleigh Ward on 90-13-1909Yyhadsodrtd distribution width (RBC) [Ratio]12.9 % Dcfhzs87.9 - 14.2 %[facility] HemeAutoSSHematocrit (Bld) [Volume fraction]40.1 %Normal 34.0 - 46.0 %[facility] HemeAutoSSHemoglobin (Bld) [Mass/Vol]13.2 g/hJLeypoq76.0 - 16.0 gm/dLFTMC HemeAutoSSMCH (RBC) [Entitic mass]27.7 ymJbudxl66.0 - 34.0 pgFTMC HemeAutoSSMCHC (RBC) [Mass/Vol]32.8 g/qPTaxhov03.4 - 36.0 gm/dLFTMC HemeAutoSS MCV (RBC) [Entitic vol]84.3 eGKtqmfg83.0 - 100.0 fLFTMC HemeAutoSSPlatelet mean volume (Bld) [Entitic vol]8.5 fLNormal6.4 - 10.8 fLFTMC HemeAutoSSPlatelets (Bld) [#/Vol]299.0 E9/OFmepbr346.0 - 500.0 E9/LFTMC HemeAutoSSRBC (Bld) [#/Vol] 4.8 E12/LNormal4.3 - 5.9 E12/LFTMC HemeAutoSSWBC corrected for nucl RBC Auto (Bld) [#/Vol]5.9 E9/LNormal4.0 - 11.0 E9/LFTMC DiPon 09-59-0841Jghr risk assessmenta) No falls within the last mtavBV-QCWQE-Rlmeba 320 Work Phone: Last menstrual period start pmxoilhpnsCU-JAGBZ-Pybtwi 320 Work Phone: Tobacco use status CPHSb) TfNV-UUPVC-Fedyxw 320 Work Phone: OB/SUPERVISOR COLD ROLLING - Office Visiton 82-23-4651FD/SUPERVISOR COLD ROLLING - Office VisitDiagnoses/Problems Assessed Endometriosis (617.9) (N80.9) Orders Start: Orilissa 200 MG Oral Tablet; take 1 tablet by mouth twice a day Provider Impressions 26 yo 1. 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 CH RN HEDIS History of Present Qbptmqe89 yo presents as a follow up for [...] again engaged x 1 year working at [employer] [place] Review of Systems Constitutional: no fever, no [...] hours Vitals Vital Signs Recorded: 09Feb2022 11:41AM Jsmldyhf684 Mhuwelzbo26 Height5 ft 2 in Sdpsfi744 lb BMI Shepyhebmw83.51 kg/m2 BSA Calculated1.61 Tobacco Useb) No Fall [...] NormalUH TouchworksXR KNEE LEFT (MIN 4 VIEWS)on 78-98-6399ZR KNEE LEFT (MIN 4 VIEWS)EXAM: XR KNEE [...] by: Joe Lopez MD 09/29/21 Final resultNormalMercy Mississippi Baptist Medical CenterOB/SUPERVISOR COLD ROLLING - Office Visiton 93-29-4690XS/SUPERVISOR COLD ROLLING - Office VisitDiagnoses/Problems Assessed Anxiety (300.00) (F41.9) Orders Start: FLUoxetine HCl - 20 MG Oral Capsule; TAKE 1 CAPSULE Daily Provider Impressions 26 yo 1. 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 CH RN HEDIS History of Present Spqmqag89 yo with endometriosis was on norethindrone d/c'd [...] Every 6 hours Vitals Vital Signs Recorded: 25Jsy1193 01:19PM Okmormem550 Gwayrojrx22 Height5 ft 2 in Neopwk427 lb BMI Vldbmvbini64.58 kg/m2 BSA Calculated1.53 Tobacco Useb) No Fall Screeninga) No falls within the last year EAW93Cjd1438 Pain Scale0 Signatures Electronically signed by : Charlene Rodriguez DO; Jun 03 2021 10:55AM EST (Author) NormalUH TouchworksChlamydia sp identified Org specific cx Nom (Genital specimen)Ordered By: Jackelyn Dela Cruz on 23-75-6960Tgzjexts Chlamydia Screen NegativeNegativeSumma HealthHBV surface Ag IA Qlon 05-15-7378Leomolmz Hepatitis B Surface AgNegativeNegative, None DetectedSumma HealthHIV 1+2 Ab and HIV1 p24 Ag IA.rapid Nom (S/P/Bld)on 85-56-4740EWL-1/HIV-2 AbNegativeSCentervilleNo Panel Informationon 70-13-4867Lbuaaozq Gonorrhea ScreenNegativeNegativeSCenterville External Rubella IGG QuantitationPositiveCherokee Regional Medical Center Panel InformationOrdered By: Jackelyn Dela Cruz on 03-20-6710Quwep HealthReagin Ab RPR Ql (S)on 74-61-5479Tywkbvzr RPRNon-ReactiveBorderline, Nonreactive, Weakly Reactive, EquivocalScci Hospital Lima HealthOB/SUPERVISOR COLD ROLLING - Office Visiton 66-47-4334CD/SUPERVISOR COLD ROLLING - Office VisitDiagnoses/Problems Assessed Endometriosis (617.9) (N80.9) [...] for endometriosis PAP per patient 2019 WNL Rose Grader declined -CATY,RN HEDIS LMP 04/11/21 History of Present Fknoxcg3 yo with endometriosis bleeding once per month, [...] 2021 11:04AM EST (Author) Normal TouchworksTobacco Screening.on 82-09-2048Ctml risk assessmenta) No falls within the last snkuFS-GDFGG-Lgufvt 320 Work Phone: Last menstrual period start dglt93Gep8768 CG-OFWFJ-Vwftij 320 Work Phone: Tobacco Screening.b) TaRK-CCUCW-Akpkls 320 Work Phone: Radiologyon 53-92-8922OH Kidney - bilateralNormal ZD-Mtrxytb-Npxmilkzp Work Phone: US RENAL BILATon 03-60-0297II RENAL BILATMRN: [id number] Patient Name: JUHI COPE STUDY: US RENAL BILAT; 04/14/2021 1:14 pm INDICATION: Recurrent UTI. COMPARISON: None. ACCESSION NUMBER(S): [id number] ORDERING CLINICIAN: TERI CHAU TECHNIQUE: Multiple images [...] renal ultrasound. Electronically signed by: GENEVIEVE BREEN MDWarren State Hospital Office Visit (Urology)on 28-98-8975Hjlwzp-up visitDiagnoses/Problems Assessed Recurrent UTI (599.0) (N39.0) Orders Recurrent UTI Start: Nitrofurantoin Monohyd Macro 100 MG Oral Capsule; TAKE 1 CAPSULE Other Please take one capsule after sexual intercourse to prevent UTI Rx By: Teri Chau; Dispense: 30 Days ; #:30 Capsule; Refill: 11;For: Recurrent UTI; ROSY = N; Verified Transmission to RealtimeBoard Ultrasound Kidney Bilateral; Status:Hold For - Scheduling; Requested for:92Ojn2963; Perform:[facility] Rad[facility] Services Imaging; Due:11Gbb2478; Last Updated By:Isela Terrazas; 04/01/2021 9:16:17 AM;Ordered; [...] UTI; ROSY = N; Verified Transmission to RealtimeBoard Provider Impressions 26 year old female with history of endometriosis presents today via telehealth as a new patient forevaluation of recurrent UTIs. She reports getting UTIs at least once per month, noting occasional nocturia. Symptoms include burning, frequency, and back pain. She states that some UTIs are related to sexual intercourse but most are not. Patient reports she saw Dr. Booth at [facility] in [place], noting she was only treated with medications and urethral dilation for a supposed stricture.Denies gross hematuria. Patient is a non-smoker. Urine culture from [facility] on 03/04/21 was positive for E. [...] and in the presence of Dr. Chau. ITeri, agreeluna all documentation by the scribe, Patricia Ruano, [...] NPV - recurrent UTI History of Present Abwfvdm57 year old female with history of endometriosis presents today via telehealth as a new patient for evaluation of recurrent UTIs. She reports getting UTIs at least once per month, noting occasional nocturia. Symptoms include burning, frequency, and back pain. She states that some UTIs are related to sexual intercourse but most are not. Patient reports she saw Dr. Booth at [facility] in [place], noting she was only treated with medications [...] and affect. Signature (more content not included)...NormalUH TouchworksID GASTRIC EMPTYING SOLIDon 93-55-1936UU GASTRIC EMPTYING SOLID* * *Final Report* * * DATE OF EXAM: Nov 05 2020 12:26PM [facility] 0017 - [place] GASTRIC EMPTYING [...] 4 HOURS IS CONSISTENT WITH MILD GASTROPARESIS. Glass Handler: PSCB Transcribe Date/Time: Nov 05 2020 1:09P Dictated by : SIDDHARTH PEREA MD This examination was interpreted and the report reviewed and electronically signed by: SIDDHARTH PEREA MD on Nov 05 2020 1:24PM EST [id number]_IDCSIACNNormalLetohatchee HospitalANES POSTPROC EVALon 73-47-4460ABPY POSTPROC EVALHNO ID: [id number] Author: Austin Story Service: ? Author Type: [...] October 25, 2020 TIME: 2:52 PM CSN: [id number] HospitalANES PRE-OPon 97-54-2683CJZD PRE-OPHNO ID: [id number] Author: Austin Story Service: ? Author Type: [...] October 25, 2020 TIME: 1:08 PM CSN: [id number] Medical West PATHOLOGYon 10-25-2020 SURGICAL PATHOLOGYSpecimen originated from [facility] Specimen #: [id number] Submitting Physician: MALCOLM CRUZ MD FINAL DIAGNOSIS 1. Small bowel, biopsy (A) - Small bowel mucosa with no pathologic diagnostic abnormality; negative for celiac disease, granulomas and dysplasia. 2. Stomach, biopsy (B) - Gastric oxyntic-type mucosa with no pathologic diagnostic abnormality; see comment. /[facility] 10/26/2020 COMMENT 2. No microorganisms [...] at [facility], [address] [place] [address] 10/25/2020 7:59:40 PM Date of Report: 10/26/2020 Date of Procedure: 10/25/2020 Date of Receipt: 10/25/2020 Submitted by: MALCOLM CRUZ MD Location: AV[facility] Diagnostic interpretation performed at [facility], [address] [place] [address]. CLIA Number: [id number] Clinic Reference LabComment on above:Performed By: #### S #### See report for performing lab information.SURGICAL PATHOLOGYSpecimen originated from [facility] Specimen #: [id number] Submitting Physician: MALCOLM CRUZ MD FINAL DIAGNOSIS 1. Small bowel, biopsy (A) - Small bowel mucosa with no pathologic diagnostic abnormality; negative for celiac disease, granulomas and dysplasia. 2. Stomach, biopsy (B) - Gastric oxyntic-type mucosa with no pathologic diagnostic abnormality; see comment. /[facility] 10/26/2020 COMMENT 2. No microorganisms [...] at [facility], [address] [place] [address] EJL 10/25/2020 7:59:40 PM Date of Report: 10/26/2020 Date of Procedure: 10/25/2020 Date of Receipt: 10/25/2020 Submitted by: MALCOLM CRUZ MD Location: [facility] Diagnostic interpretation performed at [facility], [address] [place] [address]. CLIA Number: [id number] HospitalABO/RH GROUP TESTon 11-02-1074JFK TYPEONoUNC Health Blue Ridge - ValdeseComment on above: Performed By: #### VERAB #### [facility] [address] [id number] TYPEPositiveTouro InfirmaryComment on above: Performed By: #### VERAB #### [facility] [address] [id number] Surgical Pathology Departmenton 82-62-1346Eoxgj Surgical Pathology DepartmentJUHI Winters Pathologist: ASHLEY HURTADO MD Date of Procedure: 09/01/2020 Date Received: 09/01/2020 Date Reported 09/03/2020 Submitting Physician: CHARLENE RODRIGUEZ D.O. Location: [facility] External # FINAL DIAGNOSIS A. LEFT [...] D. Right pelvic sidewall peritoneum are 2 yilf-egx-btl, irregular fragments of tissue measuring 1.3 x [...] and submitted in toto in one cassette. ANGELLA amisha/09/02/2020 [facility] Department of Pathology [address] [id number] Health Blue Ridge - ValdeseComment on above:Performed By: #### [facility] #### [facility] Surgical Pathology Department [address] [place], [place] [address]History and Physical - Surgery > 30 dayson 04-05-8022Ikvveyp and Physical - Surgery > 30 daysHistory [...] T&S: O+, COVID-19: negative OB Hx: None. Form Designer Hx: As above. PMHx: endometriosis Surg Hx: diagnostic laparoscopy, appendectomy (2016) Meds: Meloxicam, Brantley-Linyah, Norethindrone acetate Social Hx: No tobacco, no [...] the note. I personally evaluated the patient [id number] Attending Provider Inpatient Certification StatementObservation patient/other outpatient visits Electronic Signatures: Charlene Rodriguez) (Signed 01-Sep-2020 10:04) Authored: Note Completion Co-Signer: History of Present Illness, Home Medication Review, Impression/Procedure, ERAS, Physical Exam, Consent, Note Completion Chelsie Leal (Resident)) (Signed 31-Aug-2020 15:44) Authored: History of Present Illness, Home Medication Review, Impression/Procedure, ERAS, Physical Exam, Consent, Note Completion Last Updated: 01-Sep-2020 10:04 by Charlene Rodriguez ()Touro InfirmaryHomegoing Instructionson 03-06-3332Wsotcmzxa InstructionsAdditional Instructions: Handouts Given: Topic 1Anesthesia Homegoing Instructions Topic 2Surgical Site Infection Handout Topic 3New Medication Education Topic 4Suggamedex handout Electronic Signatures: Aminata Gomez) (Signed 01-Sep-2020 16:07) Authored: Additional Instructions Last Updated: 01-Sep-2020 16:07 by Aminata Gomez)Touro InfirmaryPatient Profile - Preop v2on 45-10-2393Kfhpfwg Profile - Preop a9Uhhuuzx: Initial Info: How to be Addressedalexis Spoken Language PreferredEnglish Are you currently using the Personal Electronic Health Record or [employer] Information [employer] AGInnovEco Stated Reason for Admissionseeing if my endometriosis is back Primary Contact Name and Numberlogan [phone] Patient Belongingsclothing locker glasses with bf Medications Brought to Hospitalno General Health: Weight in kg55.6 kilogram(s) Weight in wib657.5 pound(s) Weight Methodactual (measured) Scale Typestanding Height [...] Arrangementshouse Lives Withparent(s) Resource/Environmental Concernsnone Anticipated Transition Tomoody hospitale Services Anticipated at Transitionnone Substance: Current [...] Learning Preferencesverbal instruction Cultural Considerationsnone Developmental Considerationsnone Restoration Considerationsnone Other learner availableno Falls RiskPatient location auto qualifies him/her for HIGH RISK. Are there any cultural, spiritual, moravian practices/values/needs that are important for us to [...] Physical - Surgery > 30 days 01-Sep-2020 03:42Touro InfirmaryPreop Checkliston 50-26-4102Nfivd Checklist Preop Checklist: Preop Checklist: Arrival Kygb86-Eyr-0461 Arrival Time12:30 Procedure Typelaparoscopic endometriosis excision NPO Kcjlkx81-Twu-5363 00:00 ID Band Onyes Allergy Bandno known [...] Last Updated: 01-Sep-2020 12:35 by Sierra Kraft (RN)Touro InfirmaryANTIBODY IDENT.on 42-84-8199QOKKRRLW IDENT.SEE BELOWTouro InfirmaryComment on above:Result Comment: NO CLINICALLY SIGNIFICANT ANTIBODIES IDENTIFIED.Performed By: #### ABID #### [facility] [address] [place], [place] [address]WPEgp 25-51-3088Bgxhttcklbr distribution width (RBC) [Ratio] 12.1 %Vufptk03.5 - 14.5Kindred Hospital at RahwayComment on above:Performed By: #### CBC #### [address] [id number] (Bld) [Volume fraction]39.6 %Jyvojy25.0 - 46.0[facility] Hospital at RahwayComment on above:Performed By: #### CBC #### [address] [id number] (Bld) [Mass/Vol]12.6 g/ySGtzswc78.0 - 16.0[facility] Hospital at RahwayComment on above:Performed By: #### CBC #### [address] [id number] (RBC) [Mass/Vol]31.8 g/dLLow32.0 - 36.0[facility] Hospital at RahwayComment on above:Performed By: #### CBC #### [address] [id number] (RBC) [Entitic vol]90 eAHdebuk26 - 100Kind[facility] Hospital at RahwayComment on above:Performed By: #### CBC #### [address] [id number] (Bld) [#/Vol]333 10*3/bNNwtmue991 - 450UH Morristown Medical CenterComment on above:Performed By: #### CBC #### [address] [id number] x10E12/LNormal4.00 - 5.20[facility] Comment on above:Performed By: #### CBC #### [address] [id number] (Bld) [#/Vol]5.6 10*3/uLNormal4.4 - 11.3[facility] Hospital at RahwayComment on above:Performed By: #### CBC #### [address] [id number] 2019, SCREEN ASYMPTOMATICon 45-66-3426PBJV-CoV-2 (COVID-19) RNA TENA+probe Ql (Unsp spec)Not detectedNormalNot DetectedKindred Hospital at RahwayComment on above:Result Comment: This assay is designed [...] patient management decisions. Fact sheet for providers: https://www.fda.gov/media/686254/download Fact sheet for patients: https://www.fda.gov/media/352851/download This test has received FDA Emergency Use Authorization (EUA) and has been verified by [facility] ([facility]). This test is only authorized for the duration of time that circumstances exist to justify the authorization of the emergency use of in vitro diagnostic tests for the detection of SARS-CoV-2 virus and/or diagnosis of COVID-19 infection under section 564(b)(1) of the Act, 21 U.S.C. 360bbb-3(b)(1), unless the authorization is terminated or revoked sooner. [facility] is certified under CLIA-88 as qualified to perform high complexity testing. Testing is performed in the [facility] laboratories located at [address] [place] [address].Performed By: #### COVSC #### [place], [place] [address]Lab Specimen SourceNasal, NasopharyngealNoSedgwick County Memorial HospitalComment on above:Performed By: #### COVSC #### [place], [place] [address]TYPE + SCREENon 56-73-6268YRJ TYPEONoUNC Health Blue Ridge - ValdeseComment on above:Performed By: #### T+S #### [facility] [address], [place] [address]BX TYPEPositiveNormCarolinas ContinueCARE Hospital at PinevilleComment on above: Performed By: #### T+S #### [facility] [address], [place] [address]CDV TYPECanceledGrand Itasca Clinic and HospitalComment on above:Order Comment: TEST TYPE + SCREEN WAS CANCELLED, 08/30/2020 13:37 JOP. Performed By: #### T+S #### [facility] [address] [place], [place] [address]DB TYPECanceledGrand Itasca Clinic and HospitalComment on above:Order Comment: TEST TYPE + SCREEN WAS CANCELLED, 08/30/2020 13:37 JOP. Performed By: #### T+S #### [facility] [address] [place], [place] [address]INSVjg 60-25-2875LJFTSwwwwoe:Juhi Cope MRN: Height:5' 2 (1.575 m) Weight:120 [...] the following basenames: K,HCT Progress Notes ([facility] [place] REJ AV4): Jaquelin Wesley Ma 10/19/2020 2:35 [...] 1 10 oz. Bottle of Magnesium Citrate (Lemon/Comanche) ? A test for COVID 19 test [...] toast without seeds (not multigrain); pretzels; waffles, Jamaican toast and pancakes; white rice, noodles, pasta, macaroni, peeled cooked potatoes; Special K, Rice Krispies or [place] Flakes cereals; ripe bananas; melons (except watermelon [...] carbonated beverages such as chi aislinn or lemon-onondaga soda; Gatorade? or other sports drinks (not [...] make sure you have a responsible adult transit mixer driver to take you home after procedure. Due to having sedation, you may not drive the rest of the day. ? If you need to reschedule, please call [phone] ?Date/Provider Dr Cruz Procedure:colonoscpy Facility:[facility] Prep ordered( if aware):miralax Knowledge of prep instructions:posted to Roomlr Diabetic:no Blood Thinners:no Pacemaker with defibrillator:no left message for patient to return call. Nurse triage please give below message. PLEASE READ PATIENT INSTRUCTIONS BELOW. THANK YOU.Saint Elizabeth HebronPROGRESS on 20-53-9828EKENIYKVGMW ID: [id number] Author: Leon Perkins (RtFito Pittman Service: Radiology Author Type: Liner Man Type: Progress Notes Filed: 07/29/2020 11:06 AM [...] BY: RT Daya July 29, 2020 11:01 [facility] HospitalXR ABD 2V SUPINE W UPR/DECUB/CTLon 60-34-8753LC ABD 2V SUPINE W UPR/DECUB/CTL* * *Final [...] structures are normal. No other significant abnormality. Glass Handler: PSCB Transcribe Date/Time: Jul 29 2020 11:19A Dictated by : LALI ORNELAS MD This examination was interpreted and the report reviewed and electronically signed by: LALI ORNELAS MD on Jul 29 2020 11:19AM EST [id number] Hospital Vital Signs Date TimeVital SignValuePerforming JctdsxahgAbxdlnbi04-59-9655 16:04-0400Body mass index (BMI) [Ratio]29.78 kg/h8K[employer] Work Phone: [facility] HospitalVscarmcjvf84-01-9489 16:04-0400Body kliyrv83.85 kgCore Kiesha DO Work Phone: [facility] HospitalGagvwyyfdx38-62-8450 16:04-0400Diastolic blood rfsagtpk11 mm[Hg]Nathan Kiesha DO Work Phone: [facility] HospitalQvrbqnnfet14-57-3681 16:04-0400Systolic blood stkonifn086 mm[Hg]Anthan [employer] Work Phone: [facility] HospitalUgfocqzpeh61-03-8849 10:34-0400Body mass index (BMI) [Ratio]29.26 kg/c7YstrlhglMadhuri Monroy MD Work Phone: [phone] [place], [place] [address]10-16-2025 10:34-0400Body .58 kgMadhuri Monroy MD Work Phone: [phone] [place], [place] [address]10-16-2025 10:34-0400Diastolic blood fkslhtpy55 mm[Hg]Madhuri Monroy MD Work Phone: [phone] [place], [place] 6897510-16-2025 10:34-0400Systolic blood mm[Hg]Madhuri Monroy MD Work Phone: [phone] [place], [place] 1553910-10-2025 14:48-0400Body alqate107.5 cmMine Denise MD Work Phone: 1(085)[address] [place], [place] 1553910-10-2025 14:48-0400Body mass index (BMI) [Ratio]29.04 kg/a4TdzrgpMine Denise MD Work Phone: 1(950)[address] [place], [place] 1553910-10-2025 14:48-0400Body fftxny66.03 kgMine Denise MD Work Phone: 1(866)[address] [place], [place] 1553910-10-2025 14:48-0400Diastolic blood norzvuha74 mm[Hg]Mine Denise MD Work Phone: 1(701)[address] [place], [place] 1553910-10-2025 14:48-0400Heart rate 104 /minMnie Denise MD Work Phone: 1(569)[address] [place], [place] 1553910-10-2025 14:48-0400Systolic blood exnvomcb005 mm[Hg]Mine Denise MD Work Phone: 1(483)[address] [place], [place] 1553910-09-2025 15:54-0400Body mass index (BMI) [Ratio]29.41 kg/d0JcevxzpzSteph Suely [employer] Work Phone: [phone] HospitalClaeynedmc32-24-8997 15:54-0400Body mpotvg11.94 kgSheelaa Elsa [employer] Work Phone: 1(608)[address]10-09-2025 15:54-0400Diastolic blood gjjrvive31 mm[Hg]Steph Elsa [employer] Work Phone: [phone])[address]10-09-2025 15:54-0400Systolic blood ceoepvbz896 mm[Hg]Steph Elsa [employer] Work Phone: 1(081)[address]10-02-2025 15:37-0400Body mass index (BMI) [Ratio]29.23 kg/q0Ptkwaaof Elsa [employer] Work Phone: 1(954)[address]10-02-2025 15:37-0400Body .48 kgSteph Royerly [employer] Work Phone: [facility] HospitalCkgrvvnddg46-83-8837 15:37-0400Diastolic blood guriztct97 mm[Hg]Steph Royerly [employer] Work Phone: [facility] HospitalTegpyfvucu83-47-3455 15:37-0400Systolic blood mm[Hg]Steph Royerly [employer] Work Phone: [facility] HospitalQdpurdikzm27-40-8326 15:55-0400Body mass index (BMI) [Ratio]29.45 kg/s7TlnkbeTeena Sarmiento RN Work Phone: 1(010)706-[address] [place], [place] 0196009-29-2025 15:55-0400Body plghju41.03 kgTeena Sarmiento RN Work Phone: [phone])[address]09-17-2025 14:32-0400Body mass index (BMI) [Ratio]27.82 kg/m3Xnsjd Kiesha DO Work Phone: [facility] HospitalIpjeuorady01-11-7137 14:32-0400Body kg Nathan Kiesha DO Work Phone: [place] [address]Lnbdnejmlu36-19-4731 14:32-0400Diastolic blood oymzurxc52 mm[Hg]Nathan Kiesha DO Work Phone: [facility] HospitalOigjyeuddi25-73-5505 14:32-0400Systolic blood bttykrpk103 mm[Hg]Nathan Kiesha DO Work Phone: [facility] HospitalHtojhwffnc67-62-2575 15:36-0400Body lfgoce414.5 cmGeorge Kaftan DO Work Phone: [facility] HospitalFvtqcjfxue26-16-1124 15:36-0400Body mass index (BMI) [Ratio]27.62 kg/o0Hplcmi Kaftan DO Work Phone: [place] [address]Wapfntybph96-67-5457 15:36-0400Body temperature 97.11 [degF]Eliceo Beltran DO Work Phone: [facility] HospitalRasrwgpbtk58-95-5524 15:36-0400Body malpkg15.49 kgGeorshreita Beltran DO Work Phone: [facility] HospitalTnrsjsikva46-93-6784 15:36-0400Diastolic blood mm[Hg]Eliceo Beltran DO Work Phone: [facility] HospitalGhaohdwwok13-84-6558 15:36-0400Heart rate97 /min Eliceo Beltran DO Work Phone: [facility] HospitalXcaqkpolnf21-38-3990 15:36-4801AzM6% (BldA) [Mass fraction]98 %Eliceo Beltran DO Work Phone: [facility] HospitalOvpvqpeevj64-90-3251 15:36-0400Systolic blood wbybyobq888 mm[Hg]Eliceo Beltran DO Work Phone: [facility] HospitalHxylkgplsd04-62-3472 15:42-0400Body mass index (BMI) [Ratio]26.48 kg/l2Gjmdy Fazio DO Work Phone: [facility] HospitalJazfcoklww38-33-7383 15:42-0400Body xctbhy12.68 kgCorepearl Cabrerao DO Work Phone: [facility] HospitalCqbqeetcsd57-76-6030 15:42-0400Diastolic blood hylqtqin15 mm[Hg]Nathan Cabrerao DO Work Phone: [facility] HospitalUtnspakaly91-24-1310 15:42-0400Systolic blood mm[Hg]Nathan Cabrerao DO Work Phone: [facility] HospitalSqwwddhhcz72-32-3040 14:33-0400Body mass index (BMI) [Ratio]26.73 kg/c2Fqppb Kiesha DO Work Phone: [facility] HospitalYsorxoasqb47-27-0174 14:33-0400Body .28 kgCorey Kiesha DO Work Phone: [facility] HospitalDrjsaiwpsi13-03-4187 14:33-0400Diastolic blood qtxzprbu41 mm[Hg]Nathan Kiesha DO Work Phone: [facility] HospitalKukbtnwemy37-46-2416 14:33-0400Systolic blood mm[Hg]Nathan Kiesha DO Work Phone: [facility] HospitalFcuapctypb99-45-5317 14:45-0400Body mass index (BMI) [Ratio]25.24 kg/b8Voveh Kiesha DO Work Phone: [facility] HospitalYbklwioyzh31-89-3693 14:45-0400Body fschew30.6 kg Nathan Kiesha DO Work Phone: [facility] HospitalTimrskuntj46-34-2166 14:45-0400Diastolic blood zziywyrt84 mm[Hg]Nathan Kiesha DO Work Phone: [facility] HospitalTbywqdawoo58-19-1372 14:45-0400Systolic blood ubzjsqsk593 mm[Hg]Nathan Kiesha DO Work Phone: [facility] HospitalKypdxtzcgs49-82-5101 10:29-0400Body mass index (BMI) [Ratio]25.68 kg/m2[facility]06-06-2025 10:29-0400Body .69 kgSaint [facility]02-24-2025 15:08-0500Body mass index (BMI) [Ratio]25.99 kg/a2Wjfgo Kiesha DO Work Phone: [facility] HospitalKuidxrtohz94-10-6418 15:08-0500Body bgwucq33.47 kgCorey Kiesha DO Work Phone: [facility] HospitalQdunrkyeaf08-84-2029 15:08-0500Diastolic blood fahvoerv23 mm[Hg]Nathan Kiesha DO Work Phone: [facility] HospitalVcxpajhefn32-45-8467 15:08-0500Systolic blood prumvrbq050 mm[Hg]Nathan Kiesha DO Work Phone: [facility] HospitalKrfcanuvwz85-27-8590 15:53-0500Body hpdofg039.5 cmGeorge Kaftan DO Work Phone: [facility] HospitalMyhfrazzdr50-47-4437 15:53-0500Body mass index (BMI) [Ratio]25.61 kg/b6Bkxcih Kaftan DO Work Phone: no[facility] HospitalVgmjrhcywn78-29-7089 15:53-0500Body temperature 97.11 [degF]Eliceo Beltran DO Work Phone: [facility] HospitalVjfcxmfjga71-35-2821 15:53-0500Body raytzd78.5 kg Eliceo Beltran DO Work Phone: no[facility] HospitalSxbkyjusom03-95-1116 15:53-0500Diastolic blood rjnuwklw81 mm[Hg]Eliceo Beltran DO Work Phone: [facility] HospitalUqkvhshtqe39-80-1206 15:53-0500Heart rate51 /min Eliceo Beltran DO Work Phone: noRay [facility] HospitalVtfppzdhlp77-50-0290 15:53-5589HnT2% (BldA) [Mass fraction]98 %Eliceo Beltran DO Work Phone: noRay [facility] HospitalFyumrjqzhg29-25-1337 15:53-0500Systolic blood elmgfknf463 mm[Hg]Eliceo Beltran DO Work Phone: [facility] HospitalXkvlgsokkz81-06-1609 11:15-0400Body mass index (BMI) [Ratio]25.97 kg/c7Zsyvp Kiesha DO Work Phone: [facility] HospitalObflujqpdj61-69-9246 11:15-0400Body zpfcbi12.41 kgCorepearl Cabrerao DO Work Phone: [facility] HospitalKzmwfrzibf23-82-7203 11:15-0400Diastolic blood bropoyaj43 mm[Hg]Nathan Cabrerao DO Work Phone: [facility] HospitalIdhbxfqrca41-52-8098 11:15-0400Systolic blood qigicfpg814 mm[Hg]Nathan Kiesha DO Work Phone: [facility] HospitalHfwxqnmtct74-79-9971 10:02-0400Body mass index (BMI) [Ratio]25.39 kg/t9Qajtu Kiesha DO Work Phone: [facility] HospitalLkzbndgyrt97-15-8337 10:02-0400Body .96 kgCorey Kiesha DO Work Phone: 1(419)[address]08-27-2024 10:02-0400Diastolic blood pkrxksly64 mm[Hg]Nathan Kiesha DO Work Phone: 1(700)[facility] [place], [place] [address]Kdwesgoevi30-31-4739 10:02-0400Systolic blood mvoiilih425 mm[Hg]Nathan Kiesha DO Work Phone: 1(778)[facility] [place], [place] [address]Hkkxbqkzad38-95-6014 10:55-0500Body mass index (BMI) [Ratio]28.17 kg/o3Rvjev Kiesha DO Work Phone: 1(464)[facility] [place], [place] [address]Knzsjswtjn76-47-1731 10:55-0500Body .85 kgCorey Kiesha DO Work Phone: 1(998)[address] [place], [place] 0068202-15-2024 10:55-0500Diastolic blood dvnuqgwi48 mm[Hg]Nathan Kiesha DO Work Phone: 1(272)[facility] [place], [place] [address]Msdjtwyfwz29-31-4306 10:55-0500Systolic blood iagogyse046 mm[Hg]Nathan Kiesha DO Work Phone: 1(518)[address] [place], [place] 0068210-18-2023 17:31-0400Body temperature 98.96 [degF]Von Loco [facility]10-18-2023 17:31-0400 Diastolic blood gzofhhoe22 mm[Hg]Von Loco [address] [place], [place] 5590110-18-2023 17:31-3785LXD4 99 %[facility]10-18-2023 17:31-0400Heart jcni719 /Janet Loco [facility]10-18-2023 17:31-0400 Respiratory rate16 /minVon Loco [address] [place], [place] 5590110-18-2023 17:31-0400 Systolic blood ygxqyrpp083 mm[Hg]Von Loco [address] [place], [place] 5590106-06-2023 10:55-0400Body auuplf906.5 cmErin Reaper ATM SERVICER.MECHANICAL SERVICE SPECIALIST Work Phone: [place] Pgvpip17-58-9196 10:55-0400Body wlarnn62.86 kgErin Reaper ATM SERVICER.MECHANICAL SERVICE SPECIALIST Work Phone: [place] Mysrmy13-91-0627 10:55-0400Diastolic blood ihspybce46 mm[Hg]Jihan Reaper ATM SERVICER.MECHANICAL SERVICE SPECIALIST Work Phone: [phone] Ucetoy85-47-2973 10:55-0400Systolic blood teuysbsm854 mm[Hg]Jihan Reaper ATM SERVICER.MECHANICAL SERVICE SPECIALIST Work Phone: [phone] Otuvjk16-73-8892 19:18-0500Diastolic blood abpfjoes19 mm[Hg][facility]03-08-2023 19:18-0500Heart rate98 /min[facility]03-08-2023 19:18-0500Nursing Progress Note ReasonOther: this RN discharged pt. pt verbalizes understanding and denies questiosn prior to discharge.[facility]03-08-2023 19:18-0500Respiratory rate16 /min[facility]03-08-2023 19:18-7580DpD5% (BldA) [Mass fraction]100 %[facility]03-08-2023 19:18-0500 Systolic blood gnfewher821 mm[Hg][facility] 01-31-2023 18:00-0500Diastolic blood rlyaufwl01 mm[Hg][facility]03-08-2023 18:00-0500Heart tmhl287 /min[facility]03-08-2023 18:00-0500Mean blood jyifnmpc868 mm[Hg][facility]03-08-2023 18:00-6794ToE9% (BldA) [Mass fraction]99 %[facility]03-08-2023 18:00-0500 Systolic blood emsedazf358 mm[Hg][facility] 01-31-2023 17:00-0500Diastolic blood xrzkxusq47 mm[Hg][facility]03-08-2023 17:00-0500Mean blood pwwlnrcy520 mm[Hg][facility]03-08-2023 17:00-0500Systolic blood pressure 117 mm[Hg][facility]03-08-2023 16:38-0500Heart xfcd424 /min[facility]03-08-2023 16:38-0500Mean blood ebnisynm644 mm[Hg][facility]03-08-2023 16:38-0500Respiratory rate18 /min[facility] 01-31-2023 13:49-0500Body twskxyhfasf43.88 [degF][facility]03-08-2023 13:49-0500Heart nhgi081 /min[facility]02-04-2023 14:55-0500Body kfnsvwfzqit04.88 [degF][facility]02-04-2023 14:55-0500Diastolic blood srfptqqu42 mm[Hg][facility]02-04-2023 14:55-0500Heart rate84 /min[facility]02-04-2023 14:55-0500Mean blood fsclpeyr206 mm[Hg][facility]02-04-2023 14:55-0500Respiratory rate20 /min[facility]02-04-2023 14:55-0301LbA0% (BldA) [Mass fraction]98 %[facility]02-04-2023 14:55-0500Systolic blood pressure 137 mm[Hg][facility]02-04-2023 14:35-0500Body npaghgdwqpi90.88 [degF][facility]02-04-2023 14:35-0500Diastolic blood iqldlqvx23 mm[Hg][facility]02-04-2023 14:35-0500Heart rate82 /min[facility]02-04-2023 14:35-0500Mean blood niohpuqf04 mm[Hg][facility]02-04-2023 14:35-0500Respiratory rate16 /[facility]02-04-2023 14:35-7257HtL0% (BldA) [Mass fraction]97 %[facility]02-04-2023 14:35-0500Systolic blood mbedergf299 mm[Hg][facility]02-04-2023 13:35-0500Body crokkknsckm77.88 [degF][facility]02-04-2023 13:35-0500Diastolic blood osrvzujr72 mm[Hg][facility]02-04-2023 13:35-0500Heart rate80 /min[facility]02-04-2023 13:35-0500Mean blood bwxztdyy10 mm[Hg] [facility]02-04-2023 13:35-0500Respiratory rate 17 /min[facility]02-04-2023 13:35-4142HeZ2% (BldA) [Mass fraction]96 %[facility]02-04-2023 13:35-0500Systolic blood dyvyeenr760 mm[Hg][facility]02-04-2023 13:00-0500Respiratory rate12 /[facility]02-04-2023 12:55-0500Respiratory rate9 /min[facility]02-04-2023 12:50-0500Respiratory rate10 /minAstrit [facility]02-04-2023 08:15-0500Body xjbylzqtatu77.24 [degF] [facility]02-04-2023 08:15-0500Heart hvde067 /minAstrit [facility]01-07-2023 13:41-0500Body ppllissacii86.2 [degF]Kathe Ryder DO Work Phone: [facility] HospitalOdkllc79-90-6750 13:41-0500Diastolic blood oebiwlhx11 mm[Hg]Kathe Ryder DO Work Phone: [phone] HospitalPipsqt81-54-1824 13:41-0500Heart hyzp479 /min Kathe Ryder DO Work Phone: [facility] HospitalXtufwo35-55-0056 13:41-0500Respiratory rate18 /minKathe Ryder DO Work Phone: [facility] HospitalTrgvxi18-50-6987 13:41-7550TyH0% (BldA) [Mass fraction]99 %Kathe Ryder DO Work Phone: [facility] HospitalStxusu60-12-6076 13:41-0500Systolic blood mm[Hg]Kathe Ryder DO Work Phone: [facility] HospitalPtnnwg50-89-2406 00:45-0500Body oijgsa708.5 cm Kathe Ryder DO Work Phone: [facility] HospitalSypoil70-15-8542 00:45-0500Body mass index (BMI) [Ratio]25.61 kg/y7PlqgpsxqpKathe Ryder DO Work Phone: [facility] HospitalDiwxrz16-31-0528 00:45-0500Body ozsehh15.5 kg Kathe Ryder DO Work Phone: [facility] HospitalUhjihu57-93-4065 22:26-0500Hourly Rounding Fredi SCHUMACHERASIK [address] [place], [place] [address]Comment on above:Result Comment: ensured that all pt belongings are sent with pt. pt has no questions or concerns. report given to EMS. pt stable and no s/s of distress. pt off unit to hiefpslx91-51-8222 22:00-0500Diastolic blood ahzdtarl15 mm[Hg]Fredi KARASIK [address] [place], [place] 9713201-02-2023 22:00-0500Heart xeyx191 /minGregory KARASIK [address] [place], [place] 9713201-02-2023 22:00-0500 Hourly RoundingCjory KARASIK [address]01-02-2023 22:00-0500Mean blood rgitftmx062 mm[Hg]Fredi KARASIK [address] [place], [place] 9713201-02-2023 22:00-0500 Systolic blood cnyudusd736 mm[Hg]Fredi KARASIK [address] [place], [place] 9713201-02-2023 21:50-0500Blood Pressure LocationGregory KARASIK [address] [place], [place] 9713201-02-2023 21:50-0500 Diastolic blood mm[Hg]Fredi KARASIK [address] [place], [place] 9713201-02-2023 21:50-0500Heart koez685 /minGregory KARASIK [address] [place], [place] 9713201-02-2023 21:50-0500 Hourly RoundingCjory KARASIK [address] [place], [place] 9713201-02-2023 21:50-0500Mean blood ehmbwpnv166 mm[Hg]Fredi KARASIK [address] [place], [place] 9713201-02-2023 21:50-0500 Respiratory rate18 /minFredi DORSEY [address] [place], [place] 9713201-02-2023 21:50-7534HyV9% (BldA) [Mass fraction]98 %Fredi DORSEY [address] [place], [place] 9713201-02-2023 21:50-0500 Systolic blood jagityxu388 mm[Hg]Fredi ABREUK [address] [place], [place] 9713201-02-2023 21:37-0500Blood Pressure LocationFredi ABREUK [address] [place], [place] 9713201-02-2023 21:37-0500 Diastolic blood qkemowhd84 mm[Hg]Fredi SCHUMACHERASIK [address] [place], [place] 9713201-02-2023 21:37-0500Heart vaqb866 /minFredi DORSEY [address] [place], [place] 9713201-02-2023 21:37-0500Mean blood alnouxdp771 mm[Hg]Fredi DORSEY [address] [place], [place] 9713201-02-2023 21:37-2114MbY7% (BldA) [Mass fraction]97 %Fredi DORSEY [address] [place], [place] 9713201-02-2023 21:37-0500 Systolic blood uxikqzir537 mm[Hg]Fredi SCHUMACHERASIK [address] [place], [place] 9713201-02-2023 21:30-0500Blood Pressure LocationFredi SCHUMACHERASIK [address] [place], [place] 9713201-02-2023 21:30-0500Body jlecvjbbtbi90.6 [degF]Fredi KARASIK [address] [place], [place] 9713201-02-2023 19:00-0500Body yfjsptlrfpg57.24 [degF]Fredi KARASIK [address] [place], [place] 9713201-02-2023 17:15-0500Body ytkyqpoptfe61.06 [degF]Fredi DORSEY [facility]01-02-2023 14:02-0500Heart rate99 /minFredi DORSEY [facility]08-19-2022 07:00-0400Body ekatlmsgank30.6 [degF]Kaylinn Dokken [address] [place], [place] 5590108-19-2022 07:00-0400 Diastolic blood mm[Hg]Kaylinn Dokken [address] [place], [place] 8983108-19-2022 07:00-0400Heart rate80 /minKaylinn Dokken [address] [place], [place] 8983108-19-2022 07:00-0400Mean blood ocokpdkv99 mm[Hg]Kaylinn Dokken [address]08-19-2022 07:00-0400 Respiratory rate17 /minKaylinn Dokken [address] [place], [place] 8983108-19-2022 07:00-0400 Systolic blood fwopfgtq980 mm[Hg]Kaylinn Dokken [address] [place], [place] 8983108-19-2022 06:07-0400Body wpimmsqndgv52.24 [degF]Kaylinn Dokken [address] [place], [place] 8983108-19-2022 06:07-0400 Diastolic blood mm[Hg]Kaylinn Dokken [address] [place], [place] 8983108-19-2022 06:07-0400Heart rate90 /minKaylinn Dokken [address] [place], [place] 8983108-19-2022 06:07-0400 Respiratory rate18 /minKaylinn Dokken [facility]08-19-2022 06:07-2255SfI5% (BldA) [Mass fraction]100 %Kumar Villagomez [facility]08-19-2022 06:07-0400 Systolic blood qebrbzhw815 mm[Hg]Kumar Villagomez [facility]08-19-2022 05:30-0400 Hourly RoundingCorey KIESHA [facility] CenterComment on above:Result Comment: Pt discharged per physician orders. Pt ambulates off unit with a steady vhto42-52-9902 05:15-0400Diastolic blood fubrdfyr58 mm[Hg]Nathan KIESHA [facility]08-19-2022 05:15-0400Heart sjed118 /minCorey KIESHA [facility]08-19-2022 05:15-0400 Hourly RoundingCorey KIESHA [facility]08-19-2022 05:15-0400Mean blood ltlfebeg64 mm[Hg]Nathan KIESHA [facility]08-19-2022 05:15-0400 Respiratory rate18 /minCorey KIESHA [facility]08-19-2022 05:15-0400 Systolic blood kvehrvhf040 mm[Hg]Nathan KIESHA [address] [place], [place] 9713205-24-2022 11:00-0400Body mgywqa562.02 Wenceslaoamerpreston Hodges Other [place] [employer] Other 05-24-2022 11:00-0400Body mass index (BMI) [Ratio] 23.03 kg/z0Kzdwomn Ditty [facility] [employer] Other 05-24-2022 11:00-0400Body otustj83.97 kgCamdorene Loratty Other nort [employer] Other 03-17-2022 11:41-0400Body zmgbuz266.48 cmMegan Billow DO Work Phone: GM[facility]ASDVA[address] Work Phone: [phone] 11:41-0400Body mass index (BMI) [Ratio] 24.51 kg/h2Nlqtc Billow DO Work Phone: LF-UIMNB[address] Work Phone: [phone] 11:41-0400Body surface area Derived from formula1.61 p6Uopdg Billow DO Work Phone: VY-CFVPR[address] Work Phone: [phone] 11:41-0400Body leozxn75.78 kgMegan Billow DO Work Phone: CF[facility]CZALA[address] Work Phone: [phone] 11:41-0400Diastolic blood jwuszrcd73 mm[Hg] Charlene Billow DO Work Phone: AW[facility]WGEIZ[address] Work Phone: [phone] 11:41-0400Systolic blood mm[Hg] Charlene Billow DO Work Phone: HT-YIEUW[address] Work Phone: [phone](216)[phone] 11:41-20041 1Megan Billow DO Work Phone: KS-IUNWU[address] Work Phone: Comment on above:TWEHPJUYXrrxCobdr09-90-6493 14:53-0400Body ikdnco129.48 cmMegan Billow DO Work Phone: VD-MHAFP[address] Work Phone: [phone] 14:53-0400Body mass index (BMI) [Ratio] 21.77 kg/v6Llsxi Billow DO Work Phone: DZ-RJMYK[address] Work Phone: [phone] 14:53-0400Body surface area Derived from formula1.53 h7Yussv Billow DO Work Phone: UI-GVWWF[address] Work Phone: [phone]([phone] 14:53-0400Body bmuhuj12.98 kgMegan Billow DO Work Phone: SL-SAIIV[facility] Work Phone: [phone] 14:53-0400Diastolic blood hwtpmyba27 mm[Hg] Charlene Billow DO Work Phone: FV-IWFAI[address] Work Phone: [phone] 14:53-0400Heart enhp641 /minMegan Billow DO Work Phone: DT-FPCFN[address] Work Phone: [phone]([phone] 14:53-0400Systolic blood bsgushuw639 mm[Hg] Charlene Billow DO Work Phone: PN-WDUQC[address] Work Phone: 1([phone] 14:53-57874 1Megan Billow DO Work Phone: MC-JQWDX[address] Work Phone: [phone] on above:GRAVPARAPainScale Encounters Encounter DateEncounter TypeCare ProviderFacilityStart: 09-30-2025 End: 54-37-6556Ookilc flowsheetCorey Kiesha DO Work Phone: [facility]YNStart: 09-30-2025 End: 88-19-9221Qurwhk flowsheetCorey Kiesha DO Work Phone: [facility] [place] [facility]BGYNStart: 09-28-2025 End: 48-02-0026Xdztva OnlyCollaishwarya Meza PA-C Work Phone: [phone]-Jowxb [facility] Comment on above:Essential hypertension affecting in third trimester Start: 09-26-2025 End: 30-46-2248Fdoziaeok Result EncounterSteph Keane NP Work Phone: [facility] External Department UnsolicitedStart: 09-26-2025 End: 14-73-5458Bhjpwwgej Result EncounterSteph Keane NP Work Phone: [facility] UnsolicitedStart: 09-21-2025 End: 09-55-1086aulqgdxndqTpaeqco E Lavoy PA-C Work Phone: [phone]-Avsxh [facility] Comment on above:Insulin controlled gestational diabetes mellitus (GDM) in third trimester (Primary Dx); Essential hypertension affecting in third trimesterStart: 09-21-2025 End: 08-28-4525Jmkbknbeq encounterVerito EDOUARD Work Phone: [phone]-Eqvff Medicine at [facility] Start: 09-19-2025 End: 00-29-7383Dgxmebhmm Result EncounterSteph Keane NP Work Phone: [facility] External Department UnsolicitedStart: 09-19-2025 End: 54-83-8818Sueztkcxp Result EncounterSteph Keane NP Work Phone: [facility] External Department UnsolicitedStart: 09-17-2025 End: 31-52-8819Nrwzsj Breanna CAGE Work Phone: [phone]-Bddmz Medicine at [facility] Comment on above:Essential hypertension affecting in third trimester Start: 09-16-2025 End: 54-26-4487oelrkgfofkOHERT FAZIONot AvailableStart: 09-16-2025 End: 95-29-8268Iydcnbmc flow sheetCorey Kiesha DO Work Phone: [facility]YNComment on above:29 weeks gestation of ([facility]); Third trimester ([facility]); Hypertension affecting , antepartum ([facility]); Gestational diabetes mellitus (GDM), antepartum, gestational diabetes method of control unspecified([facility]Start: 09-16-2025 End: 68-28-1955Tgqlns flowsheetCorey Kiesha DO Work Phone: [facility]BGYNStart: 09-16-2025 End: 06-66-7042Hiijit flowsheetCorey Kiesha DO Work Phone: [facility] [facility] OBGYNStart: 09-16-2025 End: 03-65-8322Ywqzurxcm Nirmal Harris [facility]art: 09-15-2025 End: 63-17-8492OxdvtyMika Meza PA-C Work Phone: [phone]-Cbjlp Medicine at [facility] Comment on above:Essential hypertension affecting in third trimester Start: 09-10-2025 End: 76-13-4519Wtbrvs outpatient visit 25 minutesMadhuri Monroy MD Work Phone: Materna Medicine [place] ClintonComment on above: 28 weeks gestation of (Primary Dx); Insulin controlled gestational diabetes mellitus (GDM) in second trimester; Essential hypertension affecting in third trimesterStart: 09-10-2025 End: 66-62-8121gjhistulksWCOLZXPL P DOCHEVAOhioHealth Berger Hospitalca [facility] Start: 09-04-2025 End: 00-20-4705Ocnghx consultation new/estab patient 60 Annalee Denise MD Work Phone: [phone]-Osklt Medicine at [facility] Comment on above:Diet controlled gestational diabetes mellitus (GDM) in second trimester (Primary Dx); Essential hypertension affecting in third trimesterStart: 09-04-2025 End: 88-42-0384jywsrjbokrYASEUB KHURSHIDPGood Samaritan Hospitaltart: 09-03-2025 End: 17-68-7389Ilfdmzhi flow sheetSteph Keane [employer] Work Phone: NOJA Patti OBGYNComment on above:Hypertension affecting , antepartum (HHS-HCC) (Primary Dx); 27 weeks gestation of (HHS-HCC); Second trimester ([facility]-H[facility])Start: 09-03-2025 End: 44-65-7047fhkfdqxnftUDIYSZGS EBERLYNot AvailableStart: 09-03-2025 End: 07-33-3319Offjvn flowsheetSteph Keane [employer] Work Phone: noms [place] OBGYNStart: 09-03-2025 End: 89-89-2745Qyxaoqyow Result EncounterCorey Kiesha DO Work Phone: noms External Department UnsolicitedStart: 09-03-2025 End: 29-82-3324Bbjmjioht Result EncounterCorey Kiesha DO Work Phone: noms External Department UnsolicitedStart: 09-01-2025 End: 25-76-6330Nxcgybcjd encounterCha Harris RNMaternal- Medicine at [facility] HospitalStart: 08-29-2025 End: 46-56-1326Tzsrjfshv Result EncounterSteph Keane NP Work Phone: noms External Department UnsolicitedStart: 08-29-2025 End: 47-90-7254Xzspcqpre Result EncounterSteph Keane [employer] Work Phone: noms External Department UnsolicitedStart: 08-27-2025 End: 19-27-9011fuyqinilfmSXMIDYOO EBERLYNot AvailableStart: 08-27-2025 End: 34-18-4423Dnxhmddv flow sheetSteph Keane NP Work Phone: NOMS [place] OBGYNComment on above:26 weeks gestation of ([facility]-H[facility]); Second trimester ([facility]-H[facility]); induced hypertension, antepartum ([facility]); Gestational diabetes mellitus (GDM) in second trimester, gestational diabetes method of control unspecified ([facility])Start: 08-27-2025 End: 25-82-4038Gsszss flowsheetSteph Keane NP Work Phone: NOMS Patti OBGYNStart: 08-27-2025 End: 51-73-8129Sfzztn flowsheetSteph Keane [employer] Work Phone: noms [facility]atti OBGYNStart: 08-27-2025 End: 16-52-9474Bjbjirfms Result EncounterSteph Keane NP Work Phone: noms External Department UnsolicitedStart: 08-25-2025 End: 29-12-8644Lyisnjigu Result EncounterGeneric External Data ProviderNOMS External Department UnsolicitedStart: 08-25-2025 End: 43-13-3507Ratmamfvi Result EncounterGeneric External Data ProviderNOMS External Department UnsolicitedStart: 08-24-2025 End: 67-82-0382fwszygqkzeNxlkma M Frey RN Work Phone: [phone]-Kmbpk Medicine at [facility] Comment on above:Gestational diabetes mellitus (GDM) in second trimester, gestational diabetes method of control unspecifiedStart: 08-21-2025 End: 19-08-7431Tzbcg abstractingScanning Provider ExternalMaternal- Medicine at [facility] Hospitaltart: 08-18-2025 End: 02-39-4371Clcro Aura Monroy MD Work Phone: [phone]-Urmre Medicine at [facility] Start: 08-15-2025 End: 74-86-7688qslihbdurxVCUWALNU EBERLYFacility:FTMCStart: 08-12-2025 End: 42-20-6927Kbaobkka flow sheetCorey Kiesha DO Work Phone: noms [place] OBGYNComment on above:24 weeks gestation of ([facility]); Second trimester ([facility]); Elevated glucose tolerance testStart: 08-12-2025 End: 30-27-9757wmlonkuiatIAWYE FAZIONot AvailableStart: 08-12-2025 End: 32-02-6898jkkcpmwqysGttbs R FAZIOFacility:FTMCStart: 08-01-2025 End: 81-21-9289yhyjnbtityA KENNETH BELTRANFacility:FTMCStart: 07-30-2025 End: 44-56-2690Wwmrccg encounter statusEliceo Beltran DO Work Phone: noms [employer] Work Phone: Start: 07-30-2025 End: 02-34-1181Gtivmlak preventive med est patient 18-39 yrsGemartha Beltran DO Work Phone: noms [facility] 230Comment on above: Wellness examination (Primary Dx); Hypertension, unspecified type ; Lipid screeningStart: 07-30-2025 End: 13-93-0505qkwaiozktqOBTKWWNehemiah Walter AvailableStart: 07-30-2025 End: 51-52-1627Eioyll flowsEmi Beltran DO Work Phone: noms [facility] 230Start: 07-30-2025 End: 82-09-9521Xdpzsz flowsEmi Beltran DO Work Phone: noms [facility] 230Start: 07-15-2025 End: 00-71-3369Lrwclgzx flow sheetCorey Kiesha DO Work Phone: noms Patti OBGYNComment on above:20 weeks gestation of ([facility]-H[facility]); Second trimester ([facility]); Diabetes mellitus screeningStart: 07-15-2025 End: 42-94-3105ifewoxygioWWIKQ FAZIONot AvailableStart: 07-15-2025 End: 29-56-2291Rnwtevekl Result EncounterCorey Kiesha DO Work Phone: NOVY External Department UnsolicitedStart: 07-15-2025 End: 35-84-8760Itukhliet Result EncounterCorey Kiesha DO Work Phone: noms External Department UnsolicitedStart: 06-22-2025 End: 34-79-5360Mqaqtwyg flow sheetCorey Kiesha DO Work Phone: NOJG [place] OBGYNComment on above:Sinusitis, unspecified chronicity, unspecified location (Primary Dx); Second trimester ([facility]); 17 weeks gestation of ([facility]); Screening, , for anatomic survey ([facility])Start: 06-22-2025 End: 30-24-4131zevrzhdzvsANQDP FAZIONot AvailableStart: 06-22-2025 End: 20-44-3579Qbfidz flowsheetCorey Kiesha DO Work Phone: NOWT [place] OBGYNStart: 06-22-2025 End: 50-99-6860Isqynv flowsheetCorey Kiesha DO Work Phone: noms [facility]atti OBGYNStart: 06-22-2025 End: 58-32-4595Wftshwxg Result EncounterCorey Kiesha DO Work Phone: noms External Department UnsolicitedStart: 05-25-2025 End: 47-00-2393gitnfgijfeFEWAX FAZIONot AvailableStart: 05-25-2025 End: 50-67-2874Tfyplczr flow sheetCorey Kiesha DO Work Phone: noms BCP OBComment on above:Nonintractable episodic headache, unspecified headache type (Primary Dx); Second trimester ([facility]); 13 weeks gestation of ([facility])Start: 05-25-2025 End: 99-26-9386Twetyu flowsheetCorey Kiesha DO Work Phone: NOMS BCP OBStart: 05-25-2025 End: 21-74-0888Eoodbt flowsheetCorey Kiesha DO Work Phone: NOAR BCP OBStart: 05-04-2025 End: 17-87-8818Cvbzwwusx Result EncounterCorey Kiesha DO Work Phone: NOZA External Department UnsolicitedStart: 05-04-2025 End: 11-97-6492Fjcwuyvrm Result EncounterCorey Kiesha DO Work Phone: NOYJ External Department UnsolicitedStart: 05-01-2025 End: 75-32-8968Bofktpswm Result EncounterCorey Kiesha DO Work Phone: noms External Department UnsolicitedStart: 05-01-2025 End: 53-14-4610Eludrflyu Result EncounterCorey Kiesha DO Work Phone: noms External Department UnsolicitedStart: 05-01-2025 End: 29-19-3470hfgjqhplmoIXGQYB KAOLIVERANNot AvailableStart: 05-01-2025 End: 78-84-5281Ziljqc outpatient visit 5 minutesNoms Bcp Ob Kiesha NurseNOMS BCP OBComment on above:GA: 9v6vGrhir: 03-13-2025 End: 37-85-7654gebihvegjpVmiij R FAZIOFacility:FTMCStart: 03-13-2025 End: 07-29-6864Sirrvbo encounter procedureCorey R KIESHA [facility] Start: 02-02-2025 End: 71-77-1582Mgtffux encounter procedureDenny Rodríguez MD Work Phone: [facility] [place] Work Phone: Start: 02-02-2025 End: 42-95-6898axgsznfmmmUxdfm Baxter MD Work Phone: [facility] Work Phone: Start: 01-22-2025 End: 68-85-7534nyonqqqpxeAnubu R FAZIOFacility:FTMCStart: 01-22-2025 End: 98-08-0169Nrlpnev encounter procedureCorey R KIESHA [facility] Start: 01-19-2025 End: 25-62-4787Zuyzhy outpatient visit 15 minutesCorey Kiesha DO Work Phone: noms BCP OBComment on above:Pain in female genitalia on intercourse; EndometriosisStart: 01-19-2025 End: 89-53-1081pwrcyyfrjkPZLUF FAZIONot AvailableStart: 01-19-2025 End: 67-71-6144Tuicai flowsheetCorey Kiesha DO Work Phone: noms BCP OBStart: 01-19-2025 End: 05-64-5445Uzupxc flowsheetCorey Kiesha DO Work Phone: noms BCP OBStart: 12-30-2024 End: 10-74-9613sotqwyhuiuSRKSUW R TREYANNot AvailableStart: 12-30-2024 End: 49-73-0143Umvfpp outpatient visit 15 minutesGeorge R Ruby DO Work Phone: NOYX [facility] 230Comment on above:Hypertension, unspecified type (CMS/HCC) (Primary Dx); Paroxysmal tachycardia, unspecified (CMS/HCC); Chronic right shoulder pain; Scapular dyskinesisStart: 08-18-2024 End: 96-98-1138Tpnhcv flowsheetCorey Kiesha DO Work Phone: noms BCP OBStart: 08-18-2024 End: 81-29-8704Dxmyqe flowsheetCorey Kiesha DO Work Phone: noms BCP OBStart: 08-18-2024 End: 21-98-1142Rpelavbrn Result EncounterCorey Kiesha DO Work Phone: noms External Department UnsolicitedStart: 08-18-2024 End: 81-45-7326Drnstmu encounter procedureCorey Kiesha DO Work Phone: [facility] Work Phone: Start: 08-18-2024 End: 04-44-0803Dassahgh preventive med est patient 18-39 yrsCorey Kiesha DO Work Phone: noms BCP OBComment on above:Well woman exam with routine gynecological examStart: 07-22-2024 End: 68-97-0727Qksnbv flowsheetCorey Kiesha DO Work Phone: noms BCP OBStart: 07-22-2024 End: 44-08-6917Jzvpac flowsheetCorey Kiehsa DO Work Phone: noms BCP OBStart: 07-22-2024 End: 04-86-4634Tygehj outpatient visit 15 minutesCorey Kiesha DO Work Phone: noms BCP OBComment on above:Dysmenorrhea, unspecified Start: 40-33-1790Bomdfnxzg encounterMegan Billow DO Work Phone: [facility] InstituteStart: 11-17-8248Giwwalnyw encounterMegan Billow DO Work Phone: [facility] InstituteComment on above:Surgery CancelledStart: 02-13-2024 End: 58-47-4107Kqsjobqoh Result EncounterCorey Kiesha DO Work Phone: noms External Department UnsolicitedStart: 02-13-2024 End: 23-50-1803Ztmuiyill Result EncounterCorey Kiesha DO Work Phone: noms External Department UnsolicitedStart: 01-15-2024 End: 44-39-7232Clmkojomc Result EncounterCorey Kiesha DO Work Phone: noms External Department UnsolicitedStart: 01-15-2024 End: 00-70-5891Onulzydsm Result EncounterCorey Kiesha DO Work Phone: noms External Department UnsolicitedStart: 01-10-2024 End: 27-78-0737Zelzry outpatient visit 15 minutesCorey Kiesha DO Work Phone: NOMS BCP OBComment on above:Menorrhagia with regular cycle; Pelvic pain in female; Uses controlStart: 86-77-8942HptbarZjgbn Billow DO Work Phone: [facility] ServicesComment on above:Refill Request Start: 37-46-1598gdxtkclwjyNihde Billow DO Work Phone: Obstetrics/GynecologyComment on above:painStart: 12-10-2023 End: 19-16-6402wmwdcdyumhDDMQM BILLOWFacility:[facility] Systemtart: 57-41-0477ypgeotjspzJicxs Billow DO Work Phone: REM PIRES MCStart: 88-37-8468Ctzgmir encounter procedureMegan Billow DO Work Phone: Obstetrics/GynecologyComment on above:office visit Start: 09-12-2023 End: 48-56-7155Rfrjubmpd department patient Berny Loco [facility] Start: 97-66-1506Vmdvey pelvic examinationMegan Billow DO Work Phone: Obstetrics/GynecologyComment on above:Pelvic pain in female (Primary Dx)Start: 90-95-2383jqdxtkzizeIqkrg Billow DO Work Phone: Obstetrics/GynecologyComment on above:painful periods Start: 08-24-2023 End: 05-89-7588Wwtglj pelvic examinationJihan Downs APRN.CNP Work Phone: GynecologyComment on above:High-tone pelvic floor dysfunction (Primary Dx); Chronic pelvic pain in femaleStart: 08-24-2023 End: 98-42-1054Rrjfkdjqxoae consultation with Kelton Downs APRN.CNP Work Phone: [facility] MAINStart: 08-24-2023 End: 03-96-1117lqdixrlacfXQAP REAPERFacility:[facility] Systemtart: 15-89-1721kgxtrtiehmRlaqn Billow DO Work Phone: Obstetrics/GynecologyComment on above:painful period Start: 62-17-5891Rdwmwnlef encounterMegan Billow DO Work Phone: GynecologyComment on above:Insurance Authorization (Orilissa)Start: 07-16-2023 End: 99-08-3467lajbzeiynnLVCUE BILLOWFacility:[facility] Systemtart: 06-12-2023 End: 78-82-0694eryjqavrliPPUCI BILLOWFacility:[facility] Systemtart: 06-12-2023 End: 27-89-7006Roawujuvrc hospital visit by physicianMaurice [facility]ly [facility] Suki (I-Stat/1.5t) RadiologyComment on above:Pelvic and perineal pain [R10.2]Start: 05-17-2023 End: 87-50-0525Pneymm pelvic examinationMegan Billow DO Work Phone: Obstetrics/GynecologyComment on above:Endometriosis (Primary Dx); Pelvic and perineal painStart: 05-17-2023 End: 85-65-8736Bwexpqladnkl consultation with patientCharlene Wilderow DO Work Phone: [facility]ENTERtart: 05-17-2023 End: 25-44-4350tbhthbduivGQJWRAnn Stanleycility:[facility] Start: 09-99-9736Dvtvhpfuy encounterMegan Billow DO Work Phone: GynecologyComment on above:Vaginal BleedingStart: 05-01-2023 End: 42-94-8712apcsjevkizNHKTDAnn Stanleycility:[facility] Start: 05-01-2023 End: 22-65-5118Asjrbot encounter procedureErin Reaper ATM SERVICER.MECHANICAL SERVICE SPECIALIST Work Phone: GynecologyComment on above:Chronic pelvic pain in female (Primary Dx); Constipation, unspecified constipation type; High-tone pelvic floor dysfunction; Diastasis of rectus abdominis; Dysmenorrhea; Other specified dyspareuniaStart: 49-24-1342skcwlngyndHwdqj Billow DO Work Phone: Obstetrics/GynecologyComment on above:painfulStart: 01-31-2023 End: 06-27-5442Azefkmmkl department [facility] Start: 12-30-2022 End: 26-23-8116Jbguolx encounter procedureAstrSelect Medical Specialty Hospital [facility] Start: 12-05-2022 End: 23-23-4469trduyomeurRXFUMorton Plant Hospital SHSStart: 12-05-2022 End: 90-16-3018Ypnqvp outpatient visit 15 minutesGinFormerly [facility] Work Phone: [facility] CenterComment on above:Pre- eclampsia, severe, delivered (Primary Dx)Start: 11-28-2022 End: 02-91-9182Tulrhbiiyy and management of inpatientSt. [facility] SHSStart: 11-28-2022 End: 22-16-3342Nahqimavpu and management of inpatientSt. [facility] Work Phone: [facility] H4 POSTPARTUMComment on above:Preeclampsia, severe, third trimester (Primary Dx)Start: 11-28-2022 End: 72-96-3508Zxd-admission assessmentGregrosa DORSEY [facility] Start: 11-27-2022 End: 31-40-8191PS TriageGregrosa WINSOMEKENYON [facility] Start: 07-14-2022 End: 47-71-3430Walgnutjv department patient visitKumar Villagomez [facility] Start: 07-14-2022 End: 58-83-6912YE TriageCorey Bryant POP [facility] Start: 04-25-2022 End: 95-54-8163Ftwongl encounter procedureCAMERON DITTY [facility] Start: 04-18-2022 End: 46-75-8924qpswtikayhOweyadw Ditty Other [employer] Other Start: 33-73-2502Atojyee encounter procedureCameron DittyFPG GastroenterologyStart: 41-92-7640Bnjuiy outpatient visit 15 minutes Charlene Rodriguez DO Work Phone: [phone]-URITI-[address] Work Phone: Start: 09-29-2021 End: 40-50-3491iqkjtbmlfeKUFLI ROWENA POCOSMercy Oelwein HospitalStart: 09-29-2021 End: 65-30-8979zjnszlvhvbUIDKN ROWENA POCOSMercy Oelwein HospitalStart: 16-20-0394KGJBYHhyto Kuldip DO Work Phone: [phone]-OWTYS-[address] Work Phone: Start: 54-09-2544VXXTXYXGYV, Provider: Charlene Rodriguez, Status: Pen, Time: 2:45 Ina Chau MD Work Phone: [phone]-Bnvpqoh-[place] Work Phone: Start: 44-16-0714Dorys Oswaldo Chau MD Work Phone: [phone]-Zdmcrvq-[place] Work Phone: Procedures DateProcedureProcedure DetailPerforming ClinicianStart: 28-92-5826JI OB BPP W NON-STRESSKristina Elsa [employer] Work Phone: Start: 04-80-7792TO OB BPP W NON-STRESSKristina Elsa [employer] Work Phone: Start: 31-09-0981Wquxs dip stick/tablet rgnt non-auto w/o micrscpCorey Kiesha DO Work Phone: Start: 49-26-8969FJO BUNCorey Kiesha DO Work Phone: Start: 38-90-2786ICN URIC ACIDCorey Kiesha DO Work Phone: Start: 14-38-9012TDV ALTCorey Kiesha DO Work Phone: Start: 77-25-2217TLW ASTCorey Kiesha DO Work Phone: Start: 42-16-7315UXU CREATININECorey Kiesha DO Work Phone: Start: 38-81-0938DCI URINE T PROTEIN CREAT RATIOCorey Kiesha DO Work Phone: Start: 38-03-8415Wyghq dip stick/tablet rgnt non-auto w/o micrscpKristina Elsa [employer] Work Phone: Start: 73-82-0679IBY TOTAL PROTEIN 24 HOUR URINE Generic External Data ProviderStart: 22-62-5553PC OB BPP W NON-STRESS Steph Elsa [employer] Work Phone: Start: 74-05-8537DSX URINE T PROTEIN CREAT RATIO Generic External Data ProviderStart: 83-12-3378MFF CBC WITH AUTO DIFFGeneric External Data ProviderStart: 66-73-1680Yctby dip stick/tablet rgnt non-auto w/o micrscpKristina Elsa [employer] Work Phone: Start: 06-27-8635Yfijplpx identified in Urine by CultureGeneric External Data ProviderStart: 43-06-2225Eupcnht quantitative blood xcpt reagent stripNot In System Ref ProvStart: 07-08-4401WFEJZI HOUR GLUCOSE TOLERANCE 100 GM LOADNot In System Ref ProvStart: 65-44-2155Ukvgx dip stick/tablet rgnt non-auto w/o micrscpCorey Kiesha DO Work Phone: Start: 42-26-1885QXK 1H POST 50G LOADNot In System Ref ProvStart: 23-68-0633RVU, SERUM, OPEN SPINA BIFIDACorey Kiesha DO Work Phone: Start: 54-18-6050Zdeuo dip stick/tablet rgnt non-auto w/o micrscpCorey Kiesha DO Work Phone: Start: 40-12-1820QJEPQDYSZ VAGINITIS (HTRX)Nathan Kiesha DO Work Phone: Start: 90-37-8652Xzuqy dip stick/tablet rgnt non-auto w/o micrscpCorey Kiesha DO Work Phone: Start: 10-91-8770Qikey dip stick/tablet rgnt non-auto w/o micrscpCorey Kiesha DO Work Phone: Start: 95-64-9470Apzkgysi screenMadhuri Monroy MD Work Phone: Start: 35-73-6141Xyco scrn 1+ class nonchromoNot In System Ref ProvStart: 94-67-6172Sjagarbiml glycosylated n6cPrjxu R Kiesha DO Work Phone: Start: 98-50-9816Gikirsmhk c antibodyNot In System Ref ProvStart: 91-57-9711ROK 1&2 AB/AG SCREEN (P24 AG)Not In System Ref ProvStart: 50-10-6523Dmgx ia hepatitis b surface antigenNot In System Ref ProvStart: 71-86-1889VRKF AND SCREENNot In System Ref ProvStart: 13-44-4120EFB TESTCorey Kiesha DO Work Phone: Start: 08-75-3511Rvuuy dip stick/tablet rgnt non-auto w/o micrscpCorey Kiesha DO Work Phone: Start: 88-34-2515DQ OB TRANSVAGINALCorey Kiesha DO Work Phone: Start: 23-84-4477SAJ,APTIMA HPV,AGE GDLNCorey Kiesha DO Work Phone: Start: 47-38-1254Afrjajmsrfx observation [Identifier] in Cervix by Cyto stainCorey Kiesha DO Work Phone: Start: 04-12-7133HIM 12-LEADCorey TSO3 DO Work Phone: Start: 15-54-4880XV PELVIS W/ TRANSVAGINALCorey Kiesha DO Work Phone: Start: 17-69-4356Ltxn cerv/vag auto thin layer prep mnl screenCorey Kiesha DO Work Phone: Start: 17-54-7540Aee pelvis w/o & w/contrast material Charlene Billow DO Work Phone: Start: 39-86-9411Fyzdt count platelet automatedMichael O'Cormier ATM SERVICER - INSPECTOR [employer]IRE [employer]ODUCTS Work Phone: Start: 55-78-5033Qdcdd count platelet automatedCassie Constantino MD Work Phone: Start: 23-43-1700Gpbar streptococcus group b amplified probe tqCassie Constantino MD Work Phone: Start: 19-68-6683DLC and Rh group [Type] in Blood by Confirmatory Carmine Constantino MD Work Phone: Start: 19-06-4574Eosnm typing serologic aboRevonne Constantino MD Work Phone: Start: 96-31-9152Hpnuedlfbpzhf metabolic panelCassie Constantino MD Work Phone: Start: 26-54-7475Dgnfcohc hiv-1&hiv-2 single result Megadyne [phone]: 44-38-7140Enzb ia hepatitis b surface antigenMegadyne [id number]: 16-17-1283VwhbysptqtCMLVCPS DICADEY Start: 08-30-2020 End: 29-61-2853Qvadwnqz screenComment on above:Performed By: #### T+S #### [facility] [address] [place], [place] [address]Sqqht Comment: TEST TYPE + SCREEN WAS CANCELLED, 08/30/2020 13:37 JOP.Performed By: #### T+S #### [facility] [address] [place], [place] [address]Bjazc: 02-66-9607HQTVN SHOULDER OPEN DISTAL CLAVICLE EXCISION 1CAMERON LOVETareasPlus Comment on above:RIGHT SHOULDER OPEN DISTAL CLAVICLE EXCISIONRIGHT SHOULDER OPEN DISTAL CLAVICLE EXCISIONAppendectomyCAMERON LOVETareasPlus betamethasone (substance)Fredi WILLIAN comment on above:Dose #1: 11/27/22ColonoscopyCAMERON EDWARD Endoscope, device (physical object)[place]oco LaparoscopyTeri Chau MD Work Phone: Plan of Treatment DateCare ActivityDetailAuthorStart: 63-17-1232Mnsbsy Vaccines (1 of 2)Zoster Vaccines (1 of 2)[facility] Hospitala HealthStart: 04-54-9599Aobrkqash for malignant neoplasm of cervixNOMS HealthcareStart: 51-61-2056Ppunoxzdz for malignant neoplasm of cervixPap SmearNOMS HealthcareStart: 43-81-1924Ffsky BMI ScreeningAdult BMI ScreeningProUc Health SystemStart: 83-21-8506Fmngega ScreeningTobacco ScreeningProUc Health SystemStart: 36-32-8846Cgdel BMI ScreeningAdult BMI ScreeningProUc Health SystemStart: 54-47-8341Inyte BMI ScreeningAdult BMI ScreeningProLouis Stokes Cleveland VA Medical Centertart: 10-08-2025 End: 86-37-5834Lqdqpwh encounter hyibugnla17/13/2025 8:00 AM EST Appointment [facility] [place] [address] [facility] [address] [place] [address] Aabomghb Medicine [place]landStart: 10-05-2025 End: 44-92-1742Tbrvusk encounter inffbsova18/10/2025 3:00 PM EST Office Visit Maternal- Medicine at [facility] [address] [place] [phone] Kayleigh Meza PA-C [address] [address] [facility]: 10-05-2025 End: 09-21-2493Uicjnbcrkafp consultation with kyhuuvb8310/05/2025 3:00 PM EST Telemedicine Maternal- Medicine at [facility] [address] [place] [phone] Kayleigh Meza PA-C [address] [address] [facility]: 88-47-7574WRE ( or age 60+ yrs) (1 - Risk 1-dose series)RSV ( or age 60+ yrs) (1 - Risk 1-dose series)[facility]: 09-30-2025 End: 70-14-5992Hokstox encounter procedureNOMS [place] OBGYNComment on above: ArrivedStart: 09-16-2025 End: 55-30-8553WY biophysical profile w non stress testUS biophysical profile w non stress test Imaging Routine Gestational diabetes mellitus (GDM),antepartum, gestational diabetes method of control unspecified ([facility]) Expected: 09/16/2025, Expires: 09/16/2026NOMS HealthcareComment on above:Expected: 09/16/2025, Expires: 09/16/2026Start: 09-15-2025 End: 49-80-5440Dnjxfjg encounter rlapyzxxl77/21/2025 2:50 PM EDT Routine NOMShalonda YOUNGN [address] [place], [id number] Zenobia Gutierrez PA [address] [place] [address] NOMS Patti OBGYNStart: 09-10-2025 End: 27-61-6961Dxgtkgffhzew consultation with scfjyyv2709/10/2025 11:00 AM EDT Telemedicine [facility] [place] [address] [phone] Madhuri Monroy MD [address], [address] [place] [id number] [facility] [place]: 09-10-2025 End: 67-37-7834Xouhbzk encounter /16/2025 9:45 AM EDT Appointment [facility] [place] [address] [phone] [facility] End: 66-91-3837Btodell encounter procedureNOMS BCP OBStart: 09-04-2025 End: 78-99-6735Qeyvrur encounter ignjszerq52/10/2025 3:00 PM EDT Office Visit M[facility]- Medicine at [facility] [address] [place] [id number] Mine Denise MD [address], [address] [place], [place] [id number] [facility] 09-[facility]-2025 End: 86-95-6501Wafxeok encounter procedureNOMS Patti OBGYNComment on above: ArrivedStart: 08-27-2025 End: 06-51-1139Fbkjwnl encounter wqznmcueh31/02/2025 3:20 PM EDT Routine NOMShalonda [place] OBGYN [address] [place], [id number] Steph Keane, CUR[employer] DRIER [address] [facility] [place] [address] NOMShalonda Armstrong OBGYNStart: 08-27-2025 End: 68-30-0410Cqeulgx aminotransferase [Enzymatic activity/volume] in Serum or PlasmaALT Lab Routine induced hypertension, antepartum (HHS-HCC) Expected: 08/27/2025 (Approximate), Expires: 08/27/2026[facility] HealthcareComment on above:Expected: 08/27/2025 (Approximate), Expires: 08/27/2026Start: 08-27-2025 End: 81-85-7008Pzqmaenpw aminotransferase [Enzymatic activity/volume] in Serum or PlasmaAST Lab Routine induced hypertension, antepartum (HHS-HCC) Expected: 08/27/2025 (Approximate), Expires: 08/27/2026[facility] HealthcareComment on above:Expected: 08/27/2025 (Approximate), Expires: 08/27/2026Start: 08-27-2025 End: 11-48-0168OIQ W Auto Differential panel - BloodCBC and differential Lab Routine induced hypertension, antepartum (HHS-HCC) Expected: 12/2024 (Approximate), Expires: 08/27/2026[facility] HealthcareComment on above: Expected: 08/27/2025 (Approximate), Expires: 08/27/2026Start: 08-27-2025 End: 49-93-7880Ypkzqyklwj [Mass/volume] in Serum or PlasmaCreatinine Lab Routine induced hypertension, antepartum (HHS-HCC) Expected: 08/27/2025 (Ap proximate), Expires: 08/27/2026[facility] Work Phone: comment on above:Expected: 08/27/2025 (Approximate), Expires: 08/27/2026Start: 08-27-2025 End: 13-89-9397Zjewndx dehydrogenase [Enzymatic activity/volume] in Serum or Plasma by Lactate to pyruvate reactionLactate dehydrogenase Lab Routine induced hypertension, antepartum (HHS-HCC) Expected: 08/27/2025, Expires: 08/27/2026[facility] HealthcareComment on above:Expected: 08/27/2025, Expires: 08/27/2026Start: 08-27-2025 End: 56-15-8203Vhbteze, urine, 24 hourProtein, urine, 24 hour Lab Routine induced hypertension, antepartum (HHS-HCC) Expected: 08/27/2025 (Approximate), Expires: 08/27/2026[facility] HealthcareComment on above:Expected: 08/27/2025 (Approximate), Expires: 08/27/2026Start: 08-27-2025 End: 81-15-2512Ny and pttPt and ptt Lab Routine induced hypertension, antepartum (HHS-HCC) Expected: 08/27/2025, Expires: 08/27/2026[facility] Healthcare Comment on above:Expected: 08/27/2025, Expires: 08/27/2026Start: 08-27-2025 End: 04-44-9631Awugw [Mass/volume] in Serum or PlasmaUric acid Lab Routine induced hypertension, antepartum (HHS-HCC) Expected: 08/27/2025 (Bouchra roximate), Expires: 08/27/2026[facility] HealthcareComment on above:Expected: 08/27/2025 (Approximate), Expires: 08/27/2026Start: 08-27-2025 End: 16-94-1119Skie nitrogen [Mass/volume] in Serum or PlasmaBUN Lab Routine induced hypertension, antepartum (HHS-HCC) Expected: 08/27/2025, Expires:08/27/2026[facility] HealthcareComment on above:Expected: 08/27/2025, Expires: 08/27/2026Start: 08-27-2025 End: 52-18-2606LQ biophysical profile w non stress testUS biophysical profile w non stress test Imaging Routine induced hypertension, antepartum (HHS-HCC) Gestational diabetes mellitus (GDM) in second trimester, gestational diabetes method of control unspecified (HHS-HCC) Expected: 08/27/2025 (Approximate), Expires: 02/25/2026[facility] HealthcareComment on above:Expected: 08/27/2025 (Approximate), Expires: 02/25/2026Start: 08-24-2025 End: 22-64-3192dzvnoicmai85/29/2025 1:30 PM EDT Support Visit Maternal- Medicine at [facility] [address] [place] [address] Teena Sarmiento RN [address] [facility], [address] [place] [address] Kerline Augustin, RD [address], [address] [place] [address] [facility] 08-24-2025 End: 99-81-6632Cnzxfoz encounter xrzxtgeue38/29/2025 11:00 AM EDT Office Visit [facility] [address] [place] [phone] Nathan Pop, DO [address] [place] [address] NOMS BCP OBStart: 08-12-2025 End: 71-18-5884Uqajdit encounter /17/2025 2:40 PM EDT Routine N[facility] Patti OBGYN [address] [place], [id number] Nathan Pop, DO [address] [place] [address] NOMS Patti OBGYNStart: 08-12-2025 End: 53-55-0183Juzutmkjmaz of glucose 3 hours after glucose challenge for glucose tolerance testGlucose tolerance, 3 hours Lab Routine Elevated glucose tolerance test Expected: 08/12/2025 (Approximate), Expires: 08/12/2026[facility] Work Phone: comment on above:Expected: 08/12/2025 (Approximate), Expires: 08/12/2026Start: 08-12-2025 End: 35-28-0018Epndosezxgik / ancillary services ztuwoqmxur78/17/2025 2:00 PM EDT Ancillary Procedure [facility]YN [address] [place] [address] [place] [phone] NOMS Patti OBGYNStart: 07-31-2025 End: 27-09-9524JEP W Auto Differential panel - BloodCBC and differential Lab Routine Hypertension, unspecified type Wellness examination Expected: 07/31/2025 (Approximate), Expires: 08/29/2025[facility] Work Phone: Comment on above:Expected: 07/31/2025 (Approximate), Expires: 08/29/2025Start: 07-31-2025 End: 99-97-0751Mszslhchhovuj metabolic 2000 panel - Serum or PlasmaComprehensive metabolic panel Lab Routine Hypertension, unspecified type Wellness examination Expected: 07/31/2025 (Approximate), Expires: 08/29/2025[facility] HealthcareComment on above:Expected: 07/31/2025 (Approximate), Expires: 08/29/2025Start: 07-31-2025 End: 77-59-6345Snnrt 1996 panel - Serum or PlasmaLipid panel Lab Routine Wellness examination Lipid screening Expected: 07/31/2025 (Approximate), Exp ires: 08/29/2025[facility] HealthcareComment on above:Expected: 07/31/2025 (Approximate), Expires: 08/29/2025Start: 07-30-2025 End: 35-20-4786Hxgefio encounter fpfxzasqk11/04/2025 3:40 PM EDT Office Visit LANETTE [place] [facility] [address] [place] [address] Eliceo Beltran, DO [address] [place] [address] ArrivedNOMS Ilia [facility] 230Comment on above:ArrivedStart: 84-24-2308JYPTG-19 Vaccine ( season)COVID-19 Vaccine ( season)[facility] HealthcareStart: 07-27-2025 Influenza vaccinationNOCA HealthcareStart: 07-15-2025 End: 76-83-6000Nwlwhmc encounter bejbagonk24/20/2025 3:30 PM EDT Routine [facility] [address] [place], [id number] Nathan Pop DO [address] [facility] [place] [address] NOMS Patti OBGYNStart: 07-15-2025 End: 66-34-4315Ehgjozrkuduu / ancillary services wwcedbokuz36/20/2025 2:30 PM EDT Ancillary Procedure [facility] [address] [place] [address] [facility]Start: 07-15-2025 End: 00-99-7641RLH panel - Blood by Automated countCBC Lab Routine Diabetes mellitus screening Expected: 07/15/2025 (Approximate), Expires: 07/15/2026[facility] Work Phone: comment on above:Expected: 07/15/2025 (Approximate), Expires: 07/15/2026Start: 07-15-2025 End: 29-97-2233Opszibnoeqa of glucose 1 hour after glucose challenge for glucose tolerance testGlucose tolerance, 1 hour Lab Routine Diabetes mellitus screening Expected: 07/15/2025 (Approximate), Expires: 07/15/2026[facility] HealthcareComment on above:Expected: 07/15/2025 (Approximate), Expires: 07/15/2026Start: 06-22-2025 End: 26-07-3226Dsxdvqf encounter djabsmpnt70/28/2025 2:10 PM EDT Routine [facility] Patti [facility]BGYN [address] [place], [id number] Nathan Pop, DO [address] [place] [address] [place] [address] ArrivedNOMS Patti OBGYNComment on above:ArrivedStart: 06-22-2025 End: 76-92-4579Iheon fetoprotein, maternalAlpha fetoprotein, maternal Lab Routine Second trimester ([facility]) 17 weeks gestation of ([facility]) Expected: 06/22/2025 (Approximate), Expires: 12/23/2025[facility] Comment on above:Expected: 06/22/2025 (Approximate), Expires: 12/23/2025Start: 06-22-2025 End: 64-60-3133NM for pregnancyUS OB 14+ weeks anatomy scan Imaging Routine Screening, , for anatomic survey ([facility]) Expected: 06/22/2025, Expires: 09/22/2025[facility] Work Phone: comment on above:Expected: 06/22/2025, Expires: 09/22/2025Start: 05-25-2025 End: 60-53-5171Tuoqdws encounter xqakomcck42/30/2025 2:40 PM EDT Routine [facility]S BCP OB [address] [place] [address] Nathan Pop, DO [address] [facility] [place] [address] NOMS BCP OBStart: 05-01-2025 End: 28-79-0741NVU/RhABO/Rh Lab Routine Missed menses , unspecified gestational age Expected: 05/01/2025 (Approximate), Expires: 05/01/2026[facility] HealthcareComment on above:Expected: 05/01/2025 (Approximate), Expires: 05/01/2026Start: 05-01-2025 End: 48-23-2181Pryqh type and Indirect antibody screen panel - BloodType and screen Lab Routine Missed menses , unspecified gestational age Expected: 05/01/2025 (Approximate), Expires: 05/01/2026[facility] Work Phone: comment on above:Expected: 05/01/2025 (Approximate), Expires: 05/01/2026Start: 05-01-2025 End: 51-73-1403Nkerf of abuse panel - Urine by Screen methodRapid drug screen, urine Lab Routine , unspecified gestational age Encounter for supervision of normal first in first trimester Expected: 05/01/2025 (Approximate), Expires: 05/01/2026[facility] HealthcareComment on above:Expected: 05/01/2025 (Approximate), Expires: 05/01/2026Start: 01-19-2025 End: 60-86-4346Iivzamb encounter procedureNOMS BCP OBComment on above:Arrived Start: 01-19-2025 End: 83-03-0864JzrjyqxkdtjjFvyhkmevirzl Lab Routine Pain in female genitalia on intercourse Endometriosis Expected: 01/19/2025(Approximate), Expires: 01/19/2026 [facility] Work Phone: comment on above:Expected: 01/19/2025 (Approximate), Expires: 01/19/2026Start: 08-18-2024 End: 44-48-8472Dxnpewf encounter procedureNOMS BCP OBComment on above:Arrived Start: 71-82-3379Pzsbufunh vaccinationBeverly ClinicStart: 07-22-2024 End: 30-03-8051PO for pregnancyUS PELVIS-TRANSVAG IF INDICATED Imaging Routine Dysmenorrhea, unspecified Expected: 07/22/2024 (Approximate), Expires: 07/22/2025[facility] Work Phone: comment on above:Expected: 07/22/2024 (Approximate), Expires: 07/22/2025Start: 06-23-2024 End: 87-59-6374Cdgspqf encounter gwqenapqy92/29/2024 10:30 AM EDT Office Visit Obstetrics/Gynecology [address] [address] Charlene Rodriguez DO [address] [place] [address] 2 WEEK POST OPObstetrics/GynecologyComment on above:2 WEEK POST OPStart: 05-27-2024 End: 98-80-6038Vcqdtqrbf to same day surgery kkwdov6305/27/2024 7:30 AM EDT - 05/27/2024 9:30 AM EDT Surgery [facility] Surgery [address] [place] [address] Charlene Rodriguez DO [address] [place] [address] LAPAROSCOPY FULGURATION OR EXCISION OF LESIONS OF THE OVARY PELVIC VISCERA OR PERITONEAL SURFACE BY ANY METHODParkview Health [facility] Hospital SurgeryComment on above:LAPAROSCOPY FULGURATION OR EXCISION OF LESIONS OF THE OVARY PELVIC VISCERA OR PERITONEAL SURFACE BYANY METHODStart: 05-27-2024 End: 52-11-2624Kopt fulg/exc ovary viscera/peritoneal surfaceLAPAROSCOPY FULGURATION OR EXCISION OF LESIONS OF THE OVARY PELVIC VISCERA OR PERITONEAL SURFACE BYANY METHOD Endometriosis 05/27/2024 7:30 AM EDTME ORStart: 05-27-2024 Subsequent hospital visit by zwcwojoti28/02/2024 7:30 AM EDT Hospital Encounter [facility] Surgery [address] [place] [address] Charlene Rodriguez DO [address] [place] [address] [phone] (F ax) Endometriosis [N80.9][facility] SurgeryComment on above:Endometriosis [N80.9]Start: 42-30-0999Dmalidsfe vaccinationInfluenza Vaccine (#1)[facility] HealthcareComment on above:Postponed from 07/27/2023 (Patient Refused)Start: 05-20-2024 End: 89-98-7416wevhfqnjld23/25/2024 10:00 AM EDT [facility] 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 [facility] [address] [place] [address] Lexis, Uro Form Designer Nurse [address] [place] [address] DIALLO LEE UROL LEXIS MOBComment on above:RN TEACHINGStart: 04-22-2024 End: 25-17-5897Dkghqcg encounter ypbndbhiz92/28/2024 9:00 AM EDT Office Visit NOMS [facility] [address] [place] [address] Denny Rodríguez MD [address] [place] [address] NOMS SEP FMStart: 36-02-4379MXkK,Tdap and Td Vaccines (7 - Td or Tdap)DTaP,Tdap and Td Vaccines (7 - Td or Tdap)[facility] SystemStart: 98-55-0082VGwA/Tdap/Td Vaccines (7 - Td or Tdap)DTaP/Tdap/Td Vaccines (7 - Td or Tdap)[facility]: 28-13-6766Xwqxd microalbumin profileDTaP,Tdap,Td Vaccine (7 - Td or Tdap)[facility] 01-30[facility]2024 End: 17-35-2288Niqayti encounter dfflylsbp27/06/2024 11:10 AM EST Consult NOM[facility] OB [address] [place] [address] Nathan Pop, DO [address] [place] [address] NOMS BCP OBStart: 01-15-2024 End: 00-56-6705Xlikdifgqmkg / ancillary services llprpqxais25/20/2024 8:00 AM EST Ancillary Procedure NOMS [facility] OB [address] [place] [address] NOMS BCP OBStart: 01-10-2024 End: 61-72-4674ZN for pregnancyUS PELVIS-TRANSVAG IF INDICATED Imaging Routine Pelvic pain in female Expected: 01/10/2024 (Approximate), Expires: 01/10/2025 [facility] Work Phone: comment on above:Expected: 01/10/2024 (Approximate), Expires: 01/10/2025Start: 91-81-4447Lesezblrql Health ScreeningBehavioral Health ScreeningBethesda North Hospitaltart: 67-76-5632Dqartkfjug AssessmentDepression AssessmentBethesda North Hospitaltart: 93-44-4662Hlfyl-19 Vaccine ( season) Covid-19 Vaccine ( season)[facility]: 74-50-1279Odiizgobd vaccinationBethesda North Hospitaltart: 62-72-9137XQMHIOVHTW ASSESSMENTDEPRESSION ASSESSMENTBethesda North Hospitaltart: 75-34-5364Ahcargndf vaccinationInfluenza Vaccine (#1)[facility] HospitalStart: 47-34-3930OSO, Provider: Charlene Rodriguez, Status: Pen, Time: 1:30 PMFUV, Provider: Charlene Rodriguez, Status: Pen, Time: 1:30 PM TU-CCRMQ-Wflsgq [address] Work Phone: Start: 97-40-5242DIG, Provider: Charlene Rodriguez, Status: Pen, Time: 11:15 AMFUV, Provider: Charlene Rodriguez, Status: Pen, Time: 11:15 AM OD-BUROF-Qslkio [address] Work Phone: Start: 72-44-5643XJU TESTINGPAP TESTINGBethesda North Hospitaltart: 30-14-0028Embipzohh for malignant neoplasm of cervixBethesda North Hospitaltart: 19-69-0436QWrY,Tdap and Td Vaccines (1 - Tdap)DTaP,Tdap and Td Vaccines (1 - Tdap)[facility] SystemStart: 55-00-5561MPtT/Tdap/Td Vaccines (1 - Tdap)DTaP/Tdap/Td Vaccines (1 - Tdap)[facility] HospitalStart: 02-81-2060Gblmx microalbumin profileBethesda North Hospitaltart: 98-57-9224Wphaj BMI Follow Up Plan Adult BMI Follow Up PlanKeenan Private Hospital SystemStart: 23-11-1948Aofqu BMI ScreeningAdult BMI ScreeningDorothea Dix Hospitaltart: 48-58-4541DDHVPD PCP TEAM CHRONIC DISEASE VISITANNUAL PCP TEAM CHRONIC DISEASE VISITMer[facility] Start: 18-09-4976TC CONTROLLED (<130/80)BP CONTROLLED (<130/80)[facility] Start: 81-65-5749YXHNALZMA C SCREENINGHEPATITIS C SCREENINGMercy Health – The [facility] Hospital Start: 65-49-7031Nscladczk C screeningHepatitis C ScreeningMercy Health – The [facility] Hospital Start: 62-55-3837UAM SCREENINGHIV SCREENINGBethesda North Hospitaltart: 63-97-7777IZZ screeningHIV ScreeningBethesda North Hospitaltart: 72-11-6320Fbrzhii of varicella vaccinationVaricella Vaccines (1 of 2 - 13+ 2-dose series)[facility] HospitalStart: 03-96-5447Cijdiiskxx ScreeningDepression ScreeningDorothea Dix Hospitaltart: 77-83-9781Lsllrtb ScreeningTobacco ScreeningDorothea Dix Hospitaltart: 73-16-6081Njvvbdydn vaccinationVaricella Vaccines (1 of 2 - 2-dose childhood series)[facility] HospitalStart: 25-64-2745PYW Vaccines (1 of 1 - Standard series)MMR Vaccines (1 of 1 - Standard series)[facility] HospitalStart: 74-28-0556Hawxrjaue vaccinationVaricella Vaccines (1 of 2 - 2-dose childhood series)[facility] Start: 96-98-2494VBOAI-19 VACCINE (#1)COVID-19 VACCINE (#1)[facility] Start: 74-95-6667KFJBNHYPF B (1 of 3 - 3-dose series)HEPATITIS B (1 of 3 - 3- dose series)[facility]: 04-92-1624Lypncvwtt B Vaccine (1 of 3 - 3- dose series)Hepatitis B Vaccine (1 of 3 - 3-dose series)[facility]: 01-03-6341Maqqmdihv B Vaccines (1 of 3 - 3-dose series)Hepatitis B Vaccines (1 of 3 - 3-dose series)[facility] HospitalStart: 07-82-7596Svuei panelLipid PanelSumma HealthBacteria identified in Urine by CultureUrine culture Microbiology Routine Missed menses Ordered: 05/01/2025[facility] HealthcareComment on above:Ordered: 05/01/2025BC W Auto Differential panel - BloodCBC and differential Lab Routine Missed menses , unspecified gestational age Ordered: 05/01/2025[facility] HealthcareComment on above:Ordered: 05/01/2025ytology Cervical or vaginal smear or scraping studyPap Smear Pathology and Cytology Routine Well woman exam with routine gynecological exam Ordered: 08/18/2024[facility] Work Phone: comment on above:Ordered: 08/18/2024Hemoglobin A1c/Hemoglobin.total in BloodHemoglobin A1c Lab Routine Missed menses , unspecified gestational age Ordered: 05/01/2025[facility] HealthcareComment on above: Ordered: 05/01/2025Hepatitis B virus surface Ag [Presence] in Serum or Plasma by ImmunoassayHepatitis B surface antigen Lab Routine Missed menses , unspecified gestational age Ordered: 05/01/2025[facility] HealthcareComment on above: Ordered: 05/01/2025Hepatitis C virus Ab [Presence] in Serum or Plasma by ImmunoassayHepatitis C antibody Lab Routine Missed menses , unspecified gestational age Ordered: 05/01/2025[facility] HealthcareComment on above:Ordered: 05/01/2025HIV-1/HIV-2 antigen/antibody combination immunoassayHIV-1 and HIV-2 antibodies Lab Routine Missed menses , unspecified gestational age Ordered: 05/01/2025[facility] HealthcareComment on above:Ordered: 05/01/2025 End: 33-17-6046Cmj pelvis w/o & w/contrast materialMRI FEMALE PELVIS WO/W IVCON Radiology Routine Pelvic and perineal pain 1 Occur[facility] 05/17/2023 [facility] Work Phone: Comment on above:1 Occurrences starting 05/17/2023 until 4Reagin Ab [Presence] in Serum by RPRRPR Lab Routine Missed menses , unspecified gestational age Ordered: 05/01/2025[facility] Healthcare Comment on above:Ordered: 05/01/2025Rubella antibody, IgGRubella antibody, IgG Lab Routine Missed menses , unspecified gestational age Ordered: 04/2025[facility] HealthcareComment on above:Ordered: 05/01/2025 End: 36-77-5924NdfohaSaint John's Health System Work Phone: Comment on above:Once (Lab) for 1 Occurrences starting 11/30/2022 until 11/30/2022, 1 completed End: 41-04-3725MI for pregnancyUS OB follow up transabdominal approach Imaging Routine Gestational diabetes mellitus (GDM), antepartum, gestational diabetes method of control unspecified ([facility]) every 4 weeks for 2 Occurrences starting 09/16/2025 until 12/17/2025[facility] Work Phone: comment on above:every 4 weeks for 2 Occurrences starting 09/16/2025 until 12/17/2025[facility] Immunizations Immunization DateImmunizationNotesCare DsvexvuxNigabgtr21-13-5959rqyxgegnw A vaccine, adult dosageCorey Kiesha DO Work Phone: [facility] HospitalLwaqdlirxv71-02-0788iauum papilloma virus vaccine, quadrivalentCorey Kiesha DO Work Phone: [facility] HospitalVkuzbgepyy50-34-5477iybijccfs, seasonal, injectable, preservative freeCorey Kiesha DO Work Phone: [facility] HospitalZqhroxpyhu56-68-3989fjfvtegvw virus vaccine, unspecified formulationGina Moschella DO Work Phone: [facility] HospitalTahsyd33-08-9467xcgfw papilloma virus vaccine, quadrivalentCorey Kiesha DO Work Phone: [facility] HospitalPbuqkvpbll73-42-0971kklavvaim A vaccine, adult dosageCorey Kiesha DO Work Phone: [facility] HospitalExiynyubrb25-17-4215rwstx papilloma virus vaccine, quadrivalentCorey Kiesha DO Work Phone: [facility] HospitalQbnhgkjvun71-04-8810dhptgzd toxoid, reduced diphtheria toxoid, and acellular pertussis vaccine, adsorbedCorey Kiesha DO Work Phone: [facility] HospitalDxplbhgety16-16-6164ooonthaputqoe polysaccharide (groups A, C, Y and W-135) diphtheria toxoid conjugate vaccine (MCV4P)Nathan Kiesha DO Work Phone: [phone] HospitalByqjxtvrhx40-38-3866gghhpkiiaa, tetanus toxoids and acellular pertussis vaccine, unspecified formulationCorey Kiesha DO Work Phone: [phone] [place], [place] [address]Gbmjnehgtu06-31-8746ufogpow, mumps and rubella virus vaccineCorey Kiesha DO Work Phone: [phone] HospitalDunsfqtvse82-45-3631drqwmbhiqy vaccine, inactivatedCorey Kiesha DO Work Phone: [phone] [place], [place] [address]Gfpolfftel65-43-8383mmirimjavn, tetanus toxoids and acellular pertussis vaccine, unspecified formulationCorey Kiesha DO Work Phone: [phone] [place], [place] [address]Cvqsershhj62-04-6358DNH-Xeazwasjyhl influenzae type b conjugate vaccineCorey Kiesha DO Work Phone: [phone] [place], [place] [address]Zaramgknqa06-51-4190fhbklpcpx B vaccine, pediatric or pediatric/adolescent dosageCorey Kiesha DO Work Phone: [phone] [place], [place] [address]Mlvxzvudcm54-73-1636szbpotq, mumps and rubella virus vaccineCorey Kiesha DO Work Phone: [phone] [place], [place] [address]Epbmaafbke42-26-3960mhvdtqpau poliovirus vaccine, live, oralCorey Kiesha DO Work Phone: [phone] HospitalCpcixaqqcb46-06-6928WAM-Vknwhsqptht influenzae type b conjugate vaccineCorey Kiesha DO Work Phone: [phone] [place], [place] [address]Dhvreznkja52-03-5665yqwdmymuq B vaccine, pediatric or pediatric/adolescent dosageCorey Kiesha DO Work Phone: [phone] [place], [place] [address]Auiazxasmb64-76-5100lyuqljvru poliovirus vaccine, live, oralCorey Kiesha DO Work Phone: [phone] [place], [place] [address]Ucfqeulnlj15-50-6640FOD-Xtlyotgawsx influenzae type b conjugate vaccineCorey Kiesha DO Work Phone: [phone] HospitalOhjkkzvrvy67-14-4850gnsxsvahm B vaccine, pediatric or pediatric/adolescent dosageCorey Kiesha DO Work Phone: NOR[facility] HospitalJxtunmscup98-01-2759wcsealexi poliovirus vaccine, live, oralCorey Kiesha DO Work Phone: [facility] HealthcareNEGATED: Highlighted row has not occurred!01-71-1645tuyfkqq, mumps and rubella virus vaccineKatherine Allen DO Work Phone: [facility] HealthComment on above:Deferred: Other - Rubella ImmuneNEGATED: Highlighted row has not occurred!17-43-2766mtrthdj toxoid, reduced diphtheria toxoid, and acellular pertussis vaccine, adsorbedKatcarlos Ryder DO Work Phone: [facility] HealthComment on above:Deferred: No longer needed - Refused Tdap vaccine. Payers DatePayer CategoryPayerPolicy [id number] Managed Care - [employer] [id number] [facility] [id number] [id number] Children's Hospital [id number] [id number] Health Insurance [id number] [id number] Health Yxypaipvc01[id number] 2.0.1.255022.[id number] 20.1.398650.3.57[id number] 2.0.1.775345.3.57[id number] 20.1.437761.3.57[id number] 2.16.840.1.254812.3.57[id number] 2.0.1.811430.3.579.[id number] 2.840.1.896421.3.57[id number] 2..1.835609.3.57[id number] 2..1.457285.3.579.2.9[id number] 2..1.963429.3.579.[id number] 2..1.452088.3.579.[id number] 2..1.126946.3.579.2.3[id number] 2..1.422805.3.579.2.448043-87-7800Tlhcqgr07779165 2..1.423794.3.57[id number] 2..1.167695.3.579.2.739093-44-4071Aabejhk83991215 2..1.604241.3.579.2.949157-19-1232Nzygpix23913586 2..1.848659.3.57[id number] 2.0.1.844683.3.57[id number] 2..1.633994.3.579.[id number] 2.16.0.1.276983.3.579.2.9[id number] 2.16.840.1.277572.3.579.2.127778-61-8188Ryxmkkx63964097 2.16.840.1.882091.3.579.2.662497-92-0900Ttixise21684022 2.16.840.1.541776.3.579.2.684802-48-3158Ppkxtqv1866318 2.16.840.1.293217.3.579.2.241479-31-5901Yxtkwgk3096653 2.16.840.1.96463[id number] 2..840.1.038713.3.579.2.531 Social History DateTypeDetailFacilityStart: 07-16-2023 End: 71-11-4706Ajrckk uses seat beltAlways uses seat beltNOMS HealthcareStart: 03-10-2021 End: 26-75-8906Nxuyity smoking statusNever smoked tobacco (finding)[facility] Hospitaltart: 49-10-0499Pdtvjiz smoking statusNeverPaulding County Hospitaltart: 07-16-2023 End: 10-30-0666Jzd Assigned At [facility] [employer] Other TobaParma Community General HospitalComment on above: denies.Tobacco smoking statusPaulding County Hospitaltart: 04-11-2023 End: 59-04-5632Rsqsefa use and exposureSmokeless tobacco non-userBethesda North Hospitaltart: 04-11-2023 End: 38-66-0716Msyyvzx intakeCurrent drinker of alcohol (finding)[facility] Hospitaltart: 84-65-4091Wlivhii Commentmaybe a few drinks a monthMercy Health – The [facility] Hospital Start: 81-46-9716Btj Assigned At BirthNot on [facility] HealthStart: 01-10-2024 End: 59-20-2767Zyrrrgs intakeLifetime non-drinker (finding)[facility] HealthWithin the last year, have you been [...] got money to buy more.Never trueNOMS HealthcareStart: 51-41-4176Pdfjpkldt10VVUG HealthcareStart: 32-86-9640Rerltwz Commentcaffeine: 1-2 cups per day, coffee and popNOCA HealthcareStart: 01-33-1568Hvncqjv SDOH IPV Dljg3Oidrj HealthStart: 29-02-0389Cvkyhzs SDOH Housing Places [address] [place], [place] [address]Start: 04-12-2022 [facility] HealthStart: 11-18-2022 End: 36-09-7569Pczktkyo to SARS-CoV-2 (event)Not sureSuselect medical specialty hospital [facility] HealthAre you now , , , , never or living with a partner? MarriedNOMS HealthcareDo you feel stress - tense, restless, nervous, or anxious, or unable to sleep at night because yourmind is troubled all the time - these days [OSQ]Only a littleNOCA HealthcareStart: 12-02-2018 End: 79-68-6925ArbAoleuy (finding)[facility] Hospitaltart: 92-72-0189Xcp Assigned At BirthFeSt. Vincent Hospitaltart: 08-19-2025 End: 66-95-2447Xdetzofoy beverage intakeCurrent non-drinker of alcohol (finding) [facility] Medical Equipment Procedure CodeEquipment CodeEquipment Original TextEquipment IdentifierDates [id number]: 08-20-2025 End: each by In Vitro route Daily Use to check FSBS four times daily [id number]: 08-20-2025 End: 90-47-1091Swo pen needles to give insulin.[id number]: 09-04-2025 Functional Status QzhvPkbtecijevCmehxoUifcjioa67-42-2944Cvhfk score [AUDIT-C]0 09/10/2025 10:17 AM EDT AshleyDanae MartinezInova [facility]09-04-2025Patient Health Questionnaire 2 item (PHQ-2) [Reported][facility] HospitalLgmbbnzmzo80-73-1738Nfkmj score [AUDIT-C]1 12/29/2024 10:25 PM EST Mychart, GenericNOMS Lovxbukjzr91-11-9838Ldl often do you have a drink containing alcohol?Monthly or less 12/29/2024 10:25 PM EST Mychart, Generic Monthly or lessNOMS Fjvluweqie24-34-5576Orhcpirkns status Patient does not drink 12/29/2024 10:25 PM EST Mychart, Generic Patient does not drinkNORay County Memorial HospitalNoyspavzbq49-03-4567Ity often do you have 6 or more drinks on 1 occasion?Never 12/29/2024 10:25 PM EST Mychart, Generic NeverNOMS [facility] 64-08-0228Dhlkksk Health Questionnaire 2 item (PHQ-2) [Reported][facility] 51-42-0220Jukbwwwjql StatusN/[facility] CenterQnehab50-96-8821Ixjnsgnhgh StatusN/[facility]02-04-2023Functional StatusN/[facility]01-02-2023Functional StatusN/[facility] 07-14-2022N/[facility] Clinical Notes 04-18-2022 to 09-28-2025 Note Date & OlaeUmqdXzpgvifn22-53-2292 Miscellaneous Notes* Telephone Encounter - Cha Harris RN - 09/28/2025 5:16 PM EST Called pt to discuss her insulin changes and received voicemail. Left her a message that Kayleigh connor reviewed her blood sugars and would like her to increase her glargine to 23 units in the evening.Asked her to please call back to verify she got this new insulin change for this week. documented in this encounterMiddletown Hospital11-03-2025 Telephone encounter Note* Telephone Encounter - Cha Harris RN - 09/28/2025 5:16 PM EST Called pt to discuss her insulin changes and received voicemail. Left her a message that Kayleigh connor reviewed her blood sugars and would like her to increase her glargine to 23 units in the evening.Asked her to please call back to verify she got this new insulin change for this week. [facility]10-27-2025 Miscellaneous Notes* Telephone Encounter - SILKE Baker [...] blood sugar logs weekly. documented in this [facility]10-27-2025 Telephone encounter Note* Telephone Encounter - SILKE [...] to send in blood sugar logs weekly. [facility]10-27-2025 History of Present illness Narrative* Kayleigh Meza PA-C - 09/21/2025 12:28 PM EDT Insulin dose increased due to elevated fastings. Kayleigh Meza PA-C 09/21/25 1229 documented in this encounterMiddletown Hospital10-22-2025 Miscellaneous Notes* Telephone Encounter - Cha [...] blood sugars next week. documented in this encounterMiddletown Hospital10-22-2025 Telephone encounter Note* Telephone Encounter - [...] send in new blood sugars next week. [employer]10-22-2025 History of Present illness Narrative* Steph Keane, CURTAIN DRIER - 09/16/2025 3:20 PM EDT Reason for [...] John San infection GDM (gestational diabetes mellitus) ([facility]) Headache History of menstrual cramps ([facility]) Varicella zoster Visual impairment HISTORY PAST MEDICAL HISTORY SOCIAL HISTORY Past Medical History: Diagnosis Date Amenorrhea d/t oral contraceptive pills Endometriosis John San infection GDM (gestational diabetes mellitus) ([facility]) Headache History of menstrual cramps severe Hypertension ([facility]) x1 Varicella zoster unsure Visual impairment w/ [...] Laterality Date APPENDECTOMY 05/2016 at [facility] 12/2022 retained placenta DISTAL [...] nursing note reviewed. Exam conducted with a student ambassador present. Vitals: Estimated body mass index is 29.78 kg/m as calculated from the following: Height as of 07/30/25: 5' 2 . Weight as of this encounter: 162 lb 12.8 oz. BP: 120/80 Patient's last menstrual period was 02/21/2025. Assessment/Plan ICD-10-CM 1. 29 weeks gestation of ([facility]) Z3A.29 POCT urinalysis dipstick manually resulted 2. Third trimester ([facility]) Z34.93 POCT urinalysis dipstick manually resulted 3. Hypertension affecting , antepartum ([facility]) O16.9 4. Gestational diabetes mellitus (GDM), antepartum, gestational diabetes method of control unspecified ([facility]) O24.419 Return OB: Patient presents today [...] and continues to report glucose log to [facility]. Follow up Ultrasound in 4 weeks. Orders Placed This Encounter Procedures POCT urinalysis dipstick manually resulted Follow Up: Patient is to return to office in 2 week for routine OB appointment. Documented by Steph Keane NP on behalf of: Nathan Pop DO documented in this encounterWashington County Memorial HospitalFzpogovajh84-97-5134 History of Present illness Narrative* Madhuri Monroy MD - 09/10/2025 11:00 AM EDT Video Visit via Real-time Synchronous Audiovisual Provider Location: [facility] [place], MATERNAL- MEDICINE [address] [place] [address], [address] [place] [id number] Patient Location: [facility] OB office Patient Location Body Mechanic Apprentice: None Video Visit Consent Statement: I discussed [...] that there are some limitations compared to qxeu-ff-hnek evaluations. We elected to proceed. REASON FOR [...] and the other consultants, we search on [employer] and all the available care everywhere epic I did review all the imaging studies of the patient available on EMR, ordered by the primary care physician and the other validation consultant HABITS: Patient activity no restrictions, diet [...] checking blood glucose and remote evaluation through [facility] office until delivery. - Discontinue blood glucose evaluation and Lantus and offer formal glucose tolerance test around 6 weeks . - follow-up survey with the [facility] office visits scheduled. - continue serial [...] patient is in complete care of her accounts payable assistant. Patient does have ultrasound video visit scheduled with us. Thank you for allowing me to participate in Juhi Galvanaishwarya . If there any questions please do [...] the provider today? none documented in this encounterMiddletown Hospital10-10-2025 History of Present illness Narrative* Radha [...] Yes Have you been seen here at [facility] in a previous ? No Recent ER visits or hospitalizations? 09/03/25 Patti to r/o preeclampsia. Patient states labs WNL Bring blood sugar log or meter with you today? (Please bring them with you for every visit at [facility]) Yes Flu vaccine (Sep-January)? N/A Any [...] and the other consultants, we search on [employer] and all the available care everywhere epic I did review all the imaging studies of the patient available on EMR, ordered by the primary care physician and the other validation consultant HABITS: Patient activity no restrictions, diet [...] checking blood glucose and remote evaluation through [facility] office until delivery. 5. Discontinue blood [...] patient is in complete care of her accounts payable assistant. Patient does have ultrasound video visit scheduled [...] with questions or concerns. documented in this encounterMiddletown Hospital10-09-2025 History of Present illness Narrative* Steph Keane, CURTAIN DRIER - 09/03/2025 3:50 PM EDT Reason for Appointment: Patient ID: Juhi Gama is a 30 y.o. female who presents for Routine Visit Patient presents today for Return OB appointment. MEDICATIONS Current Outpatient Medications Medication Instructions Alcohol Swabs (Alcohol Prep Pad) 70 % pads 1 Pad, Topical, Daily, Use four times daily to check FSBS. Blood Glucose Monitoring Suppl ([employer] Glucometer) w/Device kit 1 kit, Does not apply, Daily, Use four times daily to check FSBS. In the morning prior to breakfast & 1 hour after each meal for a total of 4times daily. volavtedzx-scdjdqt-fqptbxef (Fiorinal) 50-325-40 MG capsule 1 capsule, Oral, [...] San infection Headache History of menstrual cramps ([facility]) Varicella zoster Visual impairment HISTORY [...] Laterality Date APPENDECTOMY 05/2016 at [facility] 12/2022 retained placenta DISTAL [...] nursing note reviewed. Exam conducted with a student ambassador present. Vitals: Estimated body mass index is 29.41 kg/m as calculated from the following: Height as of 25: 5' 2 . Weight as of this encounter: 160 lb 12.8 oz. BP: 170/90 Patient's last menstrual period was 02/21/2025. ASSESSMENT & PLAN ICD-10-CM 1. 27 weeks gestation of ([facility]) Z3A.27 POCT urinalysis dipstick manually resulted 2. Second trimester ([facility]) Z34.92 Documented by Steph Keane NP on behalf of: Steph Keane NP documented in this encounterWashington County Memorial HospitalCgmnztyzem66-24-6912 Miscellaneous Notes* Telephone Encounter - Cha Harris [...] Pt asked to be transferred [facility] to make that appt. documented in this encounterMiddletown Hospital10-07-2025 Telephone encounter Note* Telephone Encounter - [...] Pt asked to be transferred to the [facility] to make that appt. Hoffmeister Leuchten [id number] History of Present illness Narrative* Steph Keane [...] to check FSBS. Blood Glucose Monitoring Suppl ([employer] Glucometer) w/Device kit 1 kit, Does not [...] San infection Headache History of menstrual cramps ([facility]) Varicella zoster Visual impairment HISTORY PAST MEDICAL HISTORY SOCIAL HISTORY Past Medical History: Diagnosis Date Amenorrhea d/t oral contraceptive pills Endometriosis John San infection Headache History of menstrual cramps severe Hypertension ([facility]) x1 Varicella zoster unsure Visual impairment w/ [...] Laterality Date APPENDECTOMY 05/2016 at [facility] 12/2022 retained placenta DISTAL [...] nursing note reviewed. Exam conducted with a student ambassador present. Vitals: Estimated body mass index is 29.23 kg/m as calculated from the following: Height as of 07/30/25: 5' 2 . Weight as of this encounter: 159 lb 12.8 oz. BP: (!) 158/92 Patient's last menstrual period was 02/21/2025. ASSESSMENT & PLAN ICD-10-CM 1. 26 weeks gestation of ([facility]) Z3A.26 POCT urinalysis dipstick manually resulted 2. Second trimester ([facility]) Z34.92 Return OB: Patient presents today [...] labs and have her evaluated today at [facility] OB. I discussed with OB today and they are aware that patient is coming to be ev aluated. Orders Placed This Encounter Procedures POCT urinalysis dipstick manually resulted Follow Up: Patient is to return to office in 2 week for routine OB appointment. Documented by Steph Keane NP on behalf of: Steph Keane NP documented in this encounterWashington County Memorial HospitalNgapplzhiq16-80-6414 Group counseling note* Group Note - Kerline [...] Face to face time was 80 minutes. [employer] Work Phone: [phone] 406-281009-29-2025 Miscellaneous Notes* Group Note - Kerline Augustin [...] time was 80 minutes. documented in this encounterMiddletown Hospital09-17-2025 History of Present illness Narrative* Steph Keane, DEVYN - 08/12/2025 2:40 PM EDT Reason for [...] Laterality Date APPENDECTOMY 05/2016 at [facility] 12/2022 retained placenta DISTAL [...] nursing note reviewed. Exam conducted with a student ambassador present. Vitals: Estimated body mass index is 27.82 kg/m as calculated from the following: Height as of 07/30/25: 5' 2 . Weight as of this encounter: 152 lb 1.9 oz. BP: 138/82 Patient's last menstrual period was 02/21/2025. ASSESSMENT & PLAN ICD-10-CM 1. 24 weeks gestation of ([facility]) Z3A.24 POCT urinalysis dipstick manually resulted 2. Second trimester ([facility]) Z34.92 POCT urinalysis dipstick manually resulted [...] on Labetalol 100mg BID. Will refer to [facility] for evaluation. Patient deniesany Headache or blurred vision. Documented by Steph Keane NP on behalf of: Nathan Pop DO documented in this encounterWashington County Memorial HospitalKkowkycsiy39-63-6253 History of Present illness Narrative* Eliceo Beltran [...] in Specialty Snapshot Current Meds Patient ID: Jhui Gama is a 30 y.o. female who [...] infection Headache History of menstrual cramps Hypertension ([facility]) Varicella zoster Visual impairment Objective ?Quick Links [...] Orders: Lipid panel; Future documented in this encounterWashington County Memorial HospitalLibkygnihk73-75-3637 History of Present illness Narrative* Christine Ravi [...] San infection Headache History of menstrual cramps ([facility]) Varicella zoster Visual impairment HISTORY [...] Laterality Date APPENDECTOMY 05/2016 at [facility] 12/2022 retained placenta DISTAL [...] nursing note reviewed. Exam conducted with a student ambassador present. Vitals: Estimated body mass index is 26.48 kg/m as calculated from the following: Height as of 25: 5' 2 . Weight as of this encounter: 144 lb 12.8 oz. BP: 120/80 Patient's last menstrual period was 02/21/2025. ASSESSMENT & PLAN ICD-10-CM 1. 20 weeks gestation of ([facility]) Z3A.20 POCT urinalysis dipstick manually resulted 2. Second trimester ([facility]) Z34.92 POCT urinalysis dipstick manually resulted [...] of: Nathan Pop DO documented in this encounterWashington County Memorial HospitalXovbvtotbb61-15-2774 History of Present illness Narrative* Steph Keane, CURTAIN DRIER - 06/22/2025 2:10 PM EDT Reason for [...] San infection Headache History of menstrual cramps ([facility]) Varicella zoster Visual impairment HISTORY [...] Laterality Date APPENDECTOMY 05/2016 at [facility] 12/2022 retained placenta DISTAL [...] nursing note reviewed. Exam conducted with a student ambassador present. Vitals: Estimated body mass index is 26.73 kg/m as calculated from the following: Height as of 12/30/24: 5' 2 . Weight as of this encounter: 146 lb 1.9 oz. BP: 118/74 Patient's last menstrual period was 02/21/2025. ASSESSMENT & PLAN (Z34.92) Second trimester ([facility]) Plan: POCT urinalysis dipstick manually resulted, Alpha fetoprotein, maternal, Alpha fetoprotein, maternal (Z3A.17) 17 weeks gestation of ([facility]) Plan: POCT urinalysis dipstick manually resulted, Alpha fetoprotein, maternal, Alpha fetoprotein, maternal (Z36.89) Screening, , for anatomic survey ([facility]) Plan: US OB 14+ weeks anatomy [...] of: Nathan Pop DO documented in this encounterWashington County Memorial HospitalFhpdamuobw93-34-6398 History of Present illness Narrative* Steph Keane [...] Laterality Date APPENDECTOMY 05/2016 at [facility] 12/2022 retained placenta DISTAL [...] nursing note reviewed. Exam conducted with a student ambassador present. Vitals: Estimated body mass index is 25.24 kg/m as calculated from the following: Height as of 12/30/24: 5' 2 . Weight as of this encounter: 138 lb. BP: 122/80 Patient's last menstrual period was 02/21/2025. ASSESSMENT & PLAN ICD-10-CM 1. Second trimester ([facility]) Z34.92 POCT urinalysis dipstick manually resulted 2. 13 weeks gestation of ([facility]) Z3A.13 Return OB: Patient presents today [...] of: Nathan Pop DO documented in this encounterWashington County Memorial HospitalNxjeaoqaaj59-86-8085 History of Present illness Narrative* Hina Go, RN HEDIS - 05/01/2025 9:00 AM EDT Reason for [...] Laterality Date APPENDECTOMY 05/2016 at [facility] 12/2022 retained placenta DISTAL [...] or undercooked meat, and stay away from [facility]. Patient has also been advised to not [...] by: Hina Go LPN documented in this encounterWashington County Memorial HospitalEehotolcbn32-26-7197 History of Present illness Narrative* Candis Yanes LPN - 01/19/2025 2:50 PM EST Reason for Appointment: Patient ID: Juhi Gama is a 29 y.o. female who presents for Painful [place] Patient presents today for Consult appointment. MEDICATIONS Current Outpatient Medications Medication Instructions dudugomvat-rlehkhyhvxafe-pjdddyet 50-325-40 MG tablet 1 tablet, Oral, Every [...] Laterality Date APPENDECTOMY 05/2016 at [facility] 12/2022 retained placenta DISTAL [...] nursing note reviewed. Exam conducted with a student ambassador present. Vitals: Estimated body mass index is [...] patient and patient given direct extension to Tinsmith Helper for any questions/concerns pertaining to fertility. Documented by Candis Yanes LPN on behalf of: Nathan Pop DO documented in this encounterWashington County Memorial HospitalEoogmngahc08-02-4766 History of Present illness Narrative* Eliceo Beltran [...] Laterality Date APPENDECTOMY 05/2016 at [facility] 12/2022 retained placenta DISTAL CLAVICLE EXCISION Right 07/2018 Shoulder - open - DAP LAPAROSCOPY DIAGNOSTIC / BIOPSY / ASPIRATION / LYSIS 02/2019 endometriosis, 2020 LAPAROSCOPY DIAGNOSTIC / BIOPSY / ASPIRATION / LYSIS 02/29/2024 SHOULDER SURGERY Right open distal clavicle excision-DAP VAGINAL DELIVERY 11/2022 Social History: [employer] Tobacco Use: Low Risk (12/30/2024) Patient History [...] min Stress: No Stress Concern Present (12/29/2024) [place] [employer] - Occupational Stress Questionnaire Feeling of Stress : Only a little Social Connections: Unknown (12/29/2024) Social Connection and Isolation Panel [NHANES] Frequency of Communication with Friends and Family: More than three times a week Frequency of Social Gatherings with Friends and Family: Once a week Attends Restoration Services: Patient declined Active Member of Clubs [...] with the patient today. Current Outpatient Medications: dhbrkuqufq-rhjlxuikskplu-famogazw 50-325-40 MG tablet, Take 1 tablet by mouth every 6 (six) hours if needed for headaches, Disp: 20 tablet, Rfl: 0 desogestrel-ethinyl estradiol (Apri) 0.15-30 MG-MCG tablet, Take 1 tablet by mouth Daily, Disp: 21 tablet, Rfl: 12 metoprolol succinate XL (Toprol-XL) 25 MG 24 hr tablet, Take 1 tablet by mouth daily, Disp: 90 tablet, Rfl: 1 documented in this encounterWashington County Memorial HospitalRzucieqhnp23-12-0684 History of Present illness Narrative* Virgen Steen LPN - 08/18/2024 11:00 AM EDT Reason for Appointment: Patient ID: Juhi Cope is a 29 y.o. female who presents for Well Women Visit Patient presents today for Annual Exam. MEDICATIONS Current Outpatient Medications Medication Instructions suhvumfphc-mstzumuzounza-hudwanob 50-325-40 MG tablet 1 tablet, Oral, Every [...] Dysmenorrhea 03/29/2023 Endometriosis 03/29/2023 Gastroparesis 03/29/2023 Hypertension ([facility]) 03/29/2023 Intractable migraine without aura and [...] Laterality Date APPENDECTOMY 05/2016 at [facility] 12/2022 retained placenta DISTAL [...] nursing note reviewed. Exam conducted with a student ambassador present. Vitals: Estimated body mass index is [...] of: Zenobia Gutierrez PA-C documented in this encounterWashington County Memorial HospitalZrlbuiwebh95-66-6158 History of Present illness Narrative* Christine Ravi LPN - 07/22/2024 9:50 AM EDT Reason for Appointment: Patient ID: Juhi Cope is a 29 y.o. female who presents for Dysmenorrhea Patient presents today for Acute Visit. MEDICATIONS Current Outpatient Medications Medication Instructions itqdvpclff-tjzpmeanoqbhz-tkbbijvm 50-325-40 MG tablet 1 tablet, Oral, Every [...] rhinitis due to pollen 03/29/2023 Tachycardia, paroxysmal ([facility]) 03/29/2023 Tension headache 03/29/2023 Vitamin B12 deficiency [...] Headache History of menstrual cramps severe Hypertension ([facility]) x1 Varicella zoster unsure Visual impairment [...] Laterality Date APPENDECTOMY 05/2016 at [facility] 12/2022 retained placenta DISTAL [...] nursing note reviewed. Exam conducted with a student ambassador present. Vitals: Estimated body mass index is [...] of: Nathan Pop DO documented in this encounterWashington County Memorial [id number] Telephone encounter Note* Telephone Encounter - Candis Garces - 04/29/2024 8:23 AM EDT Received message from admin Anna Webb to cancel surgery and all appts as pt had services elsewhere [facility]06-04-2024 Miscellaneous Notes* Telephone Encounter - Candis Garces - 04/29/2024 8:23 AM EDT Received message from admin Anna Webb to cancel surgery and all appts as pt had services elsewhere documented in this encounterMer[facility]24 Telephone encounter Note * Telephone Encounter - Anna De Leon - 04/25/2024 1:10 PM EDT Pt got in sooner for surgery with her local product accountant. Please cancel surgery and all pre and post op appts. [facility]05-31-2024 Miscellaneous Notes* Telephone Encounter - Anna De Leon - 04/25/2024 1:10 PM EDT Pt got in sooner for surgery with her local product accountant. Please cancel surgery and all pre and post op appts. documented in this encounterMercy Health [facility]-15-[facility]24 History of Present illness Narrative* Nathan [...] Laterality Date APPENDECTOMY 05/2016 at [facility] 12/2022 retained placenta DISTAL [...] nursing note reviewed. Exam conducted with a student ambassador present. Vitals: Estimated body mass index is [...] of: Nathan Pop DO documented in this encounterWashington County Memorial [id number] Miscellaneous Notes* Telephone Encounter - Pippa Simon [...] mg tablet Class: Normal Route: ORAL Order: [id number] E-Prescribing Status: Receipt confirmed by pharmacy (05/17/2023 [...] may recur and often requires a termite inspector treatment plan. Once endometriosis is identified, there [...] Department Center 05/20/2024 10:00 AM Kevin Pires Form Designer [facility] 06/23/2024 10:30 AM Charlene Rodriguez DO [facility] Appointment scheduled: As listed above Action taken: Refill request routed to clinician Pippa Simon RN January 03, 2024 4:29 PM * Telephone Encounter - Alena Tracy - 01/02/2024 3:52 PM EST Patient: Juhi Cope : 1995 Provider: Charlene Rodriguez DO Caller Phone #: [phone] (home) [phone] (cell) Reason for call: b/c refill Message routed to nurse triage Date of next visit: MEGAN: 12/10/2023 documented in this encounterMercy Health [facility]01-15-2024 NoteHNO ID: [id number] Author: CHARLENE RODRIGUEZ DO Service: ? 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 Where to find more information [...] provider. Document Revised: 07/27/2022 Document Reviewed: 07/27/2022 [employer] Patient Education 2022 [employer]. [employer]. 09/12/2023 18:18:13 Hypertension, Adult, Hwas-dy-Aofo Hypertension, Adult Hypertension is another name for [...] doctor. Keep all follow-up visits. Medicines Take dnyg-xvw-lewalhn and prescription medicines only as told by [...] provider. Document Revised: 08/31/2022 Document Reviewed: 08/31/2022 [employer] Patient Education 2022 [employer] 09/12/2023 18:18:13 General Headache Without Cause, Fbgm-bc-Meco General Headache Without Cause A headache is pain or discomfort you feel around the head or neck area. There are many causes and types of headaches. In some cases, the cause may not be found. Follow these instructions at home: Watch your condition for any changes. Let your doctor know about them. Take these steps to help with your condition: Managing pain Take btwr-hpk-xibxdkj and prescription medicines only as told by [...] away. Call your local emergency services (911 int [place] Do not wait to see [...] provider. Document Revised: 04/12/2022 Document Reviewed: 04/12/2022 [employer] Patient Education 2022 [employer] Inc. Follow Up Care 09/12/2023 17:21:57 With:DENNY RODRÍGUEZ Address: [place] [address] Business (1) When:09/15/2023 18:03:37 Comments:Follow-up with your primary care provider in 3 to 5 days. If symptoms worsen, do not improve, or new symptoms arise please report back to emergency department for further evaluation. [facility]10-18-2023 Evaluation + Plan noteExtracted from: Title:ED NoteAuthor:Eric [...] date 09/12/23 18:02:00 EDT, 09/12/23 18:02:00 EDT [facility]10-16-2023 Instructions* Patient Instructions* Jihan Downs APRN.CNP - 09/10/2023 9:52 AM EDT Plan: Trial baclofen suppositories - can switch to pill vaginally if suppositories are not affordable Consider Pelvic floor physical therapy - can find local provider [email or web address] Consider going back to see Dr Kuldip Downs APRN.CNP documented in this encounterMercy Health [facility]10-05-2023 NoteHNO ID: [id number] Author: Charlene Rodriguez DO Service: ? Author Type: Physician Type: Progress Notes Filed: 08/30/2023 11:15 AM Note Text: Tramadol rx sent to pharmacy.[facility]10-05-2023 History of Present illness Narrative* Charlene [...] going back to Kuldip SIGNATURE: Jihan Downs APRN.MECHANICAL SERVICE SPECIALIST Office visit with Dr. Rodriguez 07/16/2023 [...] [facility] NoteHNO ID: [id number] Author: Jihan Downs APRN.MECHANICAL SERVICE SPECIALIST Service: ? Author Type: Nurse Practitioner Type: Progress Notes Filed: 09/10/2023 9:53 AM Note Text: [facility] [place] [facility] of Benign Gynecology [facility] PATIENT NAME: Juhi Cope DATE: 08/24/2023 Patient Name and verified: Yes Patient Location: [place] This Virtual Visit was completed using My Chart Zoom platform. I have communicated my name and active licensure. The patient's identity and physical location were verified at the time of this visit. Either the patient or their legal national sales representative has been informed of the [...] appointment yet. GI - constipation is improved [place] - hasn't tried due to pain and [...] physical therapy - or can go locally [facility]Inter[facility] [employer] Trial flexeril at bedtime Can consider Baclofen suppositories Continue Norethindrone - can take up to 3 months for it to stop periods, take at same time every day Relaxation techniques Jihan Downs APRN.MECHANICAL SERVICE SPECIALIST OB History T0 L1 SAB0 IAB0 Ectopic0 Multiple0 Live Births0 Form Designer History LMP: 07/08/2023 (Exact Date), Having periods Age at Menarche: 14 Age at First : 27 Age at Menopause: Form Designer History Comments: Sexual Activity: Never; No partner [...] toxic appearing HEENT nor (more content not included)...[facility]09-29-2023 History of Present illness Narrative* Jihan Downs APRN.ANA LAURA - 08/24/2023 9:24 AM EDT Images from the original note were not included. [facility] Gy[facility] PATIENT NAME: Juhi Cope DATE: 08/24/2023 Patient Name and verified: Yes Patient Location: [place] This Virtual Visit was completed using My Chart Zoom platform. I have communicated my name and active licensure. The patient's identity and physical location wereverified at the time of this visit. Either the patient or their legal national sales representative has been informed of the [...] appointment yet. GI - constipation is improved [place] - hasn't tried due to pain and [...] physical therapy - or can go locally pelvicInteractive Mobile [employer] Trial flexeril at bedtime Can consider Baclofen suppositories Continue Norethindrone - can take up to 3 months for it to stop periods, take at same time every day Relaxation techniques Jihan Downs APRN.CNP OB History T0 L1 SAB0 IAB0 Ectopic0 Multiple0 Live Births0 Form Designer History LMP: 07/08/2023 (Exact Date), Having periods Age at Menarche: 14 Age at First : 27 Age at Menopause: Form Designer History Comments: Sexual Activity: Never; No partner [...] Provider: Charlene Rodriguez DO Caller Phone #: [phone] (home) [phone] (cell) Reason for call: pt calling regarding mc message., still in pain. Please call [phone] Message routed to nurse triage Date of next visit: documented in this encounterMercy [facility]-07-2023 Miscellaneous Notes* Telephone Encounter - Candis Suárez RN - 08/02/2023 11:29 AM EDT PA for orilissa completed via Cover MyMeds. Juhi Cope (Morales: [id number]) - [id number] Orilissa 150MG tablets Status: Sent To Plan Created: August 02, 2023 Sent: August 02, 2023 Candis Suárez, RN * Telephone Encounter - Noy Lynny - 08/02/2023 10:03 AM EDT Pt calling [...] [facility] NoteHNO ID: [id number] Author: Charlene Rodriguez, DO Service: ? 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 Author Type: Liner Man Type: Progress Notes Filed: 06/12/2023 4:32 PM [...] BY: RT Claudia(R) June 12, 2023 4:32 [facility]07-18-2023 NoteHNO ID: [id number] Author: Boo Singh RN Service: Nursing Author [...] Cope DATE: June 12, 2023 TIME: 1:43 [facility]06-22-2023 NoteHNO ID: [id number] Author: Charlene Rodriguez, DO Service: ? 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 DO Cade Johnson: [facility] History of Present illness Narrative* Charlene Rodriguez DO - 05/17/2023 1:05 PM EDT Images from the original note were not included. 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 Biggest complaint is cramping. Has had 3 periods of bleeding recently - 04/22/2023 LMP, last a few days, 05/04-05/10 bleeding again 05/11/2023 started again today. Takes aygestin 5mg daily. 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 Reviewed red flag bleeding symptoms that require trip to ER (soaking greater than one overnight padper hour, chest pain, shortness of breath, fatigue, palpitations).. Advised keep appt. Gives verbal understanding. Appointments for Next 60 Days Date Time Provider Location Dept Phone 05/17/2023 1:00 PM CHARLENE RODRIGUEZ [facility] [place] [phone] Candis Suárez, RN * Telephone Encounter - Tawana Nair [facility] - 05/11/2023 1:19 PM EDT Reason for call: other - Vaginal bleeding Provider name: Dr Rodriguez Additional comments: patient having more vaginal bleeding and concerned she is getting worse. Recommendation: routed to nurse triage pool documented in this encounterMercy Health [facility]06-06-2023 Instructions* Patient Instructions* Jihan Downs APRN.CNP - 05/01/2023 11:47 AM EDT Plan Pelvic floor physical therapy - or can go locally [facility] Trial flexeril at bedtime Can consider Baclofen suppositories - let me know if you want to trial after you go to PT Continue Norethindrone - can take up to 3 months for it to stop periods, take at same time every day Relaxation techniques Jihan Downs APRN.ANA LAURA Relaxation techniques for pain [...] [facility] of Present illness Narrative* Jihan Downs APRN.ANA LAURA - 05/01/2023 10:30 AM EDT Juhi Cope is a 28 year old female who presents for problem visit for pain HPI: Pain is week before period and week of period. Worse on her period for every day she's bleeding Urinary - No symptoms GI - Always constipated. No meds [place] - painful always Pain is on left [...] L0 SAB0 IAB0 Ectopic0 Multiple0 Live Births0 Form Designer History LMP: 03/26/2023 (Approximate), Having periods Age at Menarche: Age at First : Age at Menopause: Form Designer History Comments: Sexual Activity: Never; No partner [...] time every day Relaxation techniques Jihan Downs APRN.MECHANICAL SERVICE SPECIALIST Medical Decision Making: Problems: Moderate: New problem with uncertain prognosis Data: Unique source(s) for external note(s) reviewed: 1 Unique test result(s) reviewed: 1 Risk: Moderate: Drug management Medical Decision Making Level: 4 - Moderate documented in this encounterMercy Health [facility]06-06-2023 NoteHNO ID: [id number] Author: Jihan Downs APRN.CNP Service: ? Author Type: Nurse Practitioner Type: Progress Notes Filed: 05/09/2023 11:46 AM Note Text: Juhi Cope is a 28 year old female who presents for problem visit for pain HPI: Pain is week before period and week of period. Worse on her period for every day she's bleeding Urinary - No symptoms GI - Always constipated. No meds [place] - painful always Pain is on left [...] L0 SAB0 IAB0 Ectopic0 Multiple0 Live Births0 Form Designer History LMP: 03/26/2023 (Approximate), Having periods Age at Menarche: Age at First : Age at Menopause: Form Designer History Comments: Sexual Activity: Never; No partner [...] time every day Relaxation techniques Jihan Downs APRN.MECHANICAL SERVICE SPECIALIST Medical Decision Making: Problems: Moderate: New problem with uncertain prognosis Data: Unique source(s) for external note(s) reviewed: 1 Unique test result(s) reviewed: 1 Risk: Moderate: Drug management Medical Decision Making Level: 4 - [facility]eratePaulding [facility]05-31-2023 Miscellaneous Notes* Telephone Encounter - Marilee [...] told by your health care provider. Take yecu-col-obadogs and prescription medicines only as told by [...] 01/03/2007 Document Revised: 10/25/2018 Document Reviewed: 01/25/2018 [employer] Patient Education 2020 [employer]. Follow Up Care 01/31/2023 13:43:01 With:Denny Meza Address:Unknown When:02/03/2023 18:59:31 Comments:Follow-up for evaluation of hypertension in context of known preeclampsia in the period With:DENNY RODRÍGUEZ Address: [address] [place] [address]- Business (1) When:Within 3 Day(s) [facility]03-08-2023 Evaluation + Plan noteExtracted from: Title:ED NoteAuthor:Mayur Mabry PA-C CDate:01/31/23 Flank pain (R10.9: Unspecifi ed abdominal pain) Headache (R51.9: Headache, unspecified) Orders: CTA Chest Hepatic Function Panel [facility]02-04-2023 Hospital Discharge instructions Patient Education 12/30/2022 13:59:51 SUPERVISOR COLD ROLLING - Post D&C, Hysteroscopy, LEEP or Essure/Laparoscopy [...] Instructions - FT (Custom) (Custom) 12/30/2022 13:55:16 SUPERVISOR COLD ROLLING - Post D&C, Hysteroscopy, LEEP or Essure/Laparoscopy [...] Up Care 12/30/2022 08:14:12 With:Denny Meza Address: [address] , [address] [address] Business (1) When: Unknown Comments:follow up in 1-2 weeks With:DENNY RODRÍGUEZ Address: [place] [address]- Business (1) When:01/02/2023 09:21:18 [facility]02-04-2023 Evaluation + Plan noteExtracted from: [...] from:Title:ANES Pre-operative NoteAuthor:Kenneth Agustin MDDate: 12/30/22 Plan [employer] [employer]esthesi[employer] (ASA) physical [...] With Cult Reflex US Pelvis Non-OB Complete [facility]01-10-2023 History of Present illness Narrative* Tory Pimentel [...] Ross MD - 12/05/2022 3:19 PM EST [facility]: This patient was seen in the [facility] by the resident. I reviewed [...] at 35w1d admitted as a transfer from [facility] for PreEwSF. She was started on [...] Information for the patient's : Francie Cope [[id number]] female 2425 g (5 lb 5.5 oz) Apgars: Information for the patient's : Francie Cope [[id number]] : Infant: Girl Blood Type/Rh: O Antibody [...] Your Medications These medications were sent to [facility] [address] [place] [address] Hours: Sunday to Sunday 10 am to 6 pm docusate sodium 100 MG capsule ibuprofen 600 MG tablet NIFEdipine XL 30 MG 24 hr tablet Activity: Activity as tolerated Diet: Regular diet Follow-up Appointments: - visit - Blood pressure check If a patient meets criteria for hypertension, make sure the following are done prior to discharge: [] Order a blood pressure kit through [facility] (or the patient's own pharmacy on the weekend) [] Order the blood pressure log through [employer] [x] Place an office visit or telephone [...] notify her physician if any of these occur.[facility]01-07[facility] History of Present illness Narrative* Anna [...] so chooses. Provider's Name: Kathe RyderDO PAOLO lobo DO 12/01/2022, 5:32 AM Attestation Statement [...] with more than 50% of the total vacn-my-qsfb time of the visit in counseling/coordination of [...] be monitored and followed by the diet point of care technician. Suad Samuels DT * Alejandra Arcos [...] and reassuring. CCM. Cx:-3 FHT: Cat 1 [place]:q3-4 min A/P: 1. IOL-PreEwSF. FHT 130 baseline, with moderate variability, Accelerations present Yes, and rare late deceleration . Cervical exam unchanged. Cytotec x4 placed at this time. Patient intermittently feeling contractions. BP mild range. Cx: 1--3 FHP: defer FHT: Cat I [place]: a3-4min A/P: 1. IOL-PreEwSF: FHT Category I, [...] Cx: unchanged FHP: defer FHT: Cat I [place]: q4min A/P: 1. IOL-PreEwSF: FHT Category I, [...] 11/29/2022 6:17 AM Cx:1-/-3 FHT: Cat I [place]:q4-5mins A/P: 1. IOL-PreEwSF: Cat I FHT with [...] per protocol. CCM. Cx:defer FHT: Cat I [place]:q4-6mins A/P: 1. IOL-PreEwSF: Cat I FHT with baseline 120, moderate variability, spontaneous accelerations, and no decelerations. BP normotensive to mild range since last note time. Pitocin @ 2 cc/hr, continue to titrate per protocol. Magnesium sulfate running for seizure prophylaxis, UOP 400 ml over past 4hours. CCM. Cx:defer FHT: Cat I [place]:q4-5mins A/P: 1. IOL-PreEwSF: Cat I FHT with baseline 135, moderate variability, spontaneous accelerations, and no decelerations. BP normotensive to mild range since last note time. Pitocin @ 6 cc/hr, continue to titrate per protocol. Magnesium sulfate running for seizure prophylaxis, UOP 600 ml over past 4hours. Will plan for AROM soon. CCM. Cx:defer FHT: Cat I [place]:irritability A/P: 1. IOL-PreEwSF: Pit @ 8 mu/min. Patient resting comfortably and only irritability tracing on toco. BP most recently mild range. On magnesium sulfate for seizure prophylaxis. UOP adequate. Continue magnesium and continue to titrate pitocin per protocol. Plan for AROM once patient rudi more regularly. Electronically signed by Cortney Velasquez DO 11/29/2022 4:21 PM Cx:470/-3 FHT: Cat 1 [place]:Not tracing A/P: 1. IOL-PreEwSF. FHT 135 baseline, with moderate variability, Accelerations present Yes, and nodecelerations seen . AROM at this time for moderate amount blood tinged fluid. Pitocin at 8cc/hr. Maternal BP mild range. On Magnesium for Seizure prophylaxis. Patient with adequate urinary output. CCM. Cx: defer FHP: defer FHT: Cat II [place]: not tracing well A/P: 1. IOL-PreEwSF: FHT [...] per RN FHP: defer FHT: Cat II [place]: q4min A/P: 1. IOL-PreEwSF: FHT Category II [...] this [facility]01-07-2023 Hospital course Narrative* César Geraldo DO [place] - 12/02/2022 12:32 PM EST Images from the original note were not included. Department of Obstetrics and Gynecology Delivery Discharge Summary Admission on 11/28/2022 12:24 AM Hospital course: Juhi Cope at 35w1d admitted as a transfer from [facility] for [facility]. She was startedon Magnesium there and transported [...] Information for the patient's : Francie Cope [[id number]] female 2425 g (5 lb 5.5 oz) Apgars: Information for the patient's : Francie Cope [[id number]] : Infant: Girl Blood Type/Rh: O Antibody [...] Your Medications These medications were sent to [facility] [address] [place] [id number] Hours: Sunday to Sunday 10 am to 6 pm docusate sodium 100 MG capsule ibuprofen 600 MG tablet NIFEdipine XL 30 MG 24 hr tablet Activity: Activity as tolerated Diet: Regular diet Follow-up Appointments: - visit - Blood pressure check If a patient meets criteria for hypertension, make sure the following are done prior to discharge: [] Order a blood pressure kit through [facility] (or the patient's own pharmacy on the weekend) [] Order the blood pressure log through [facility] [x] Place an office visit or telephone [...] home. Denies any concerns at this time. [facility] [id number] Note* Care Coordination - Christine Michelle RN [...] home. Denies any concerns at this time. [employer] [facility] [id number] Miscellaneous Notes* Care Coordination - Christine Michelle [...] this pt. Due to: in [facility] Hospital breast pump, supplies kit, [...] to check with LC in [facility] for smaller flange sizes * L&D Delivery Note - Irina Kramer DO - 11/30/2022 4:04 AM EST Images from the original note were not included. Vaginal Delivery Note Department of Obstetrics and Gynecology Patient: Juhi Cope : 1995 Date of delivery: 11/30/2022 Pre-operative Diagnosis: Juhi Cope at 35w1d 1. <37 weeks 2. PreEwSF Post-operative Diagnosis: Live Born female Delivering Network Operations Center Engineer & Marine Water Tender(s): Dr. Bowden; Dr. Kramer Information: Information for the patient's : Francie Cope [[id number]] Information for the patient's : Francie Cope [[id number]] Description: normal Meconium Noted: No Anesthesia: epidural anesthesia Complications: None Application and Delivery: Juhi Cope at 35w1d admitted for IOL-PreEwSF. Her [...] in NICU to assist with personal pump. [place] [id number] Hospital Discharge instructions* Discharge Instructions* Carol Bowden [...] as 8 weeks after delivery. Bleeding may fruit picker machine operator and then decrease again around 7-10 days [...] avoid constipation you may take a mild nqzr-efy-tspuvna stool softener (such as colace) as recommended [...] positive or a Person Under Investigation (PUI) Zzznbj-zf-oqjju transmission of COVID-19 during is unlikely, but after a baby is susceptible to xqetma-nr-dszlww spread. After your baby is born, your [...] clean your hands with an alcohol-based hand peanut shaker that contains at least 60% alcohol. Clean your hands often Wash your hands often with soap and water for at least 20 seconds, especially after blowing your nose, coughing, or sneezing; going to the bathroom; and before eating or preparing food. If soap and water are not readily available, use an alcohol-based hand peanut shaker with at least 60% alcohol, covering all [...] healthcare provider to call the local or [facility] health department. Persons who are [...] isolation precautions should be made on a axxy-bq-ebpb basis, in consultation with healthcare providers and [facility] health departments. Information on COVID-19 for [...] respiratory tract signs and symptoms. Ways to [place] with Anxiety & Stress It is normal [...] an illness that was first found in [facility], in October 2019. It has [...] seen in people before. This virus spreads nmwbms-aq-nplusl through droplets from coughing and sneezing. It [...] water aren't available, use an alcohol-based hand peanut shaker. Call 911 anytime you think you may [...] of: February 25, 2020 Content Version: 12.4 [employer]. Care instructions adapted under license by your healthcare professional. If you have questions about a medical condition or this instruction, always ask your healthcare professional. [employer] disclaims any warranty or liability for your use of this information. General Recommendations for Routine Cleaning and Disinfection of Households Community members can practice routine cleaning of frequently touched surfaces (for example: tables, doorknobs, light switches, handles, desks, toilets, faucets, sinks) with household rock wool insulator and EPA-registered disinfectants that are appropriate for [...] appropriate. These supplies include tissues, paper towels, rock wool insulator and EPA-registered disinfectants (see list link at [...] be used for other purposes. Consult the spinning doffer's instructions for cleaning and disinfection products used. [...] used if appropriate for the surface. Follow spinning doffer's instructions for application and proper ventilation. Check [...] with EPA-approved emerging viral pathogens [facility] iconexternal icon are expected to be effective against COVID-19 based on data for harder to kill viruses. Follow the spinning doffer's instructions for all cleaning and disinfection products (e.g., concentration, application method and contact time, etc.). Soft (porous) surfaces such as carpeted floor, rugs, and drapes Remove visible contamination if present and clean with appropriate rock wool insulator indicated for use on these surfaces. After cleaning: Launder items as appropriate in accordance with the spinning doffer's instructions. If possible, launder items using the [...] items as appropriate in accordance with the spinning doffer's instructions. If possible, launder items using the warmest appropriate water setting for the items and dry items completely. Dirty laundry from an ill person can be washed with other people's items. Clean and disinfect clothes hampers according to guidance above for surfaces. If possible, considerplacing a bagger and stock handler helper that is either disposable (can be thrown away) or can be laundered. CDC has a list of EPA approved cleaning products on their website - https://www.cdc.gov/coronavirus/ 2019-ncov/community/home/cleaning-disinfection.html https://www.ReplyBuy.com/Jumtw-Sbcnqvfdcfh-Kwlqweow-Products-List.pdf [employer] Stores with delivery and fruit picker machine operator services: [facility]: Free fruit picker machine operator at locations Delivery is $12.95 a month Website - [employer] [place]: Clean In Places Operator $2.95 (1st order is free) Delivery is $14.95 Website - [employer] [place]: tank cleaning supervisor is free Delivery is $5.95 Website - [employer]: tank cleaning supervisor is $4.95 Delivery is $9.95 Website - [employer]: tank cleaning supervisor is $4.95 Delivery is $9.95 Website - [employer]: Can be ordered for delivery and fruit picker machine operator with [employer] Website - [employer]: Free deliver for first 3 orders of $35 or more Website - aldiclickTRUE Will deliver from [facility], [employer], [employer], and [employer]. Annual membership is $99 Monthly membership is $14 * Attachments The following attachments cannot be sent through Care Everywhere. * Preeclampsia Discharge Instructions (Honduran) documented in this [facility]01-05-2023 Obstetrics Note* Note - Sheila Harrell RN - 11/30/2022 10:37 AM EST Swabs given to patient and educated how to use and to bring to infant CRISTIAN [id number] Obstetrics Note* Note - Sheila Harrell RN - 11/30/2022 10:30 AM EST Breast pump use indicated for this pt. Due to: infant in [facility] Hospital breast pump, supplies kit, [...] to check with LC in [facility] for smaller flange sizes [facility] [id number] NotePatient: Juhi Cope Procedure Summary Date: 11/29/22 [...] discharged once all PACU criteria has been met.[facility]01-05-2023 NotePatient: Juhi Cope Procedure Summary Date: [...] Allowed opportunity for questions and acknowledgement of understanding.[facility]01-05-2023 Labor and delivery summary note* L&D Delivery Note - Irina Kramer DO - 11/30/2022 4:04 AM EST Images from the original note were not included. Vaginal Delivery Note Department of Obstetrics and Gynecology Patient: Juhi Cope : 1995 Date of delivery: 11/30/2022 Pre-operative Diagnosis: Juhi Mojica0 at 35w1d 1. <37 weeks 2. PreEwSF Post-operative Diagnosis: Live Born female Delivering Network Operations Center Engineer & Marine Water Tender(s): Dr. Bowden; Dr. Kramer Infant Information: Information for the patient's : Francie Cope [[id number]] Information for the patient's : Francie Cope [[id number]] Description: normal Meconium Noted: No Anesthesia: epidural [...] surgery as described in the resident note. [facility] [id number] NoteEpidural Block Time Out: 11/29/2022 6:17 PM Patient location during procedure: OB Start time: 11/29/2022 6:18 PM End time: 11/29/2022 6:45 PM Reason for block: labor analgesia Staffing Performed: INSPECTOR WIRE PRODUCTS Resident/INSPECTOR WIRE PRODUCTS: Jimmie Kaur APRN - INSPECTOR WIRE PRODUCTS Preanesthetic Checklist Completed: patient identified, IV checked, [...] patient tolerated procedure well with no immediate complications[facility] Plan of care note* Care Plan - Clotilde Mg RN - 11/29/2022 7:45 AM EST The patient will continue to make cervical change. Clotilde Mg RN [facility]01-03-2023 NotePatient: Juhi Cope Procedure Information Date: 11/28/22 [...] products. patient is not NPO Additional Equipment [facility]01-03-2023 NoteLabor Progress Note Date: 11/28/2022 Time: 2:14 [...] and reassuring. CCM. Cx:-3 FHT: Cat 1 [place]:q3-4 min A/P: 1. IOL-PreEwSF. FHT 130 baseline, with moderate variability, Accelerations present Yes, and rare late deceleration . Cervical exam unchanged. Cytotec x4 placed at this time. Patient intermittently feeling contractions. BP mild range. Cx: 1-/-3 FHP: defer FHT: Cat I [place]: a3-4min A/P: 1. IOL-PreEwSF: FHT Category I, [...] Cx: unchanged FHP: defer FHT: Cat I [place]: q4min A/P: 1. IOL-PreEwSF: FHT Category I, [...] 11/29/2022 6:17 AM Cx:1-2/60/-3 FHT: Cat I [place]:q4-5mins A/P: 1. IOL-PreEwSF: Cat I FHT with [...] per protocol. CCM. Cx:defer FHT: Cat I [place]:q4-6mins A/P: 1. IOL-PreEwSF: Cat I FHT with baseline 120, moderate variability, spontaneous accelerations, and no decelerations. BP normotensive to mild range since last note time. Pitocin @ 2 cc/hr, continue to titrate per protocol. Magnesium sulfate running for seizure prophylaxis, UOP 400 ml over past 4 hours. CCM. Cx:defer FHT: Cat I [place]:q4-5mins A/P: 1. IOL-PreEwSF: Cat I FHT with baseline 135, moderate variability, spontaneous accelerations, and no decelerations. BP normotensive to mild range since last note time. Pitocin @ 6 cc/hr, continue to titrate per protocol. Magnesium sulfate running for seizure prophylaxis, UOP 600 ml over past 4 hours. Will plan for AROM soon. CCM. Cx:defer FHT: Cat I [place]:irritability A/P: 1. IOL-PreEwSF: Pit @ 8 mu/min. Patient resting comfortably and only irritability tracing on toco. BP most recently mild range. On magnesium sulfate for seizure prophylaxis. UOP adequate. Continue magnesium and continue to titrate pitocin per protocol. Plan for AROM once patient rudi more regularly. Electronically signed by Cortney Velasquez DO 11/29/2022 4:21 PM Cx:/-3 FHT: Cat 1 [place]:Not tracing A/P: 1. IOL-PreEwSF. FHT 135 baseline, with moderate variability, Accelerations present Yes, and no decelerations seen . AROM at this time for moderate amount blood tinged fluid. Pitocin at 8cc/hr. Maternal BP mild range. On Magnesium for Seizure prophylaxis. Patient with adequate urinary output. CCM. Cx: defer FHP: defer FHT: Cat II [place]: not tracing well A/P: 1. IOL-PreEwSF: FHT Category II for brief period of lates vs early deceleration (more content not included)...[facility]01-03-2023 NoteObstetrical History and Physical CHIEF COMPLAINT: [...] 34w6d Is this patient being delivered between 98i9l-78p3w weeks with an acceptable medical indication (obstetric, maternal, and/or )? NA: Not Applicable: This patient is being delivered outside of the PC-01 range (73f1t-00l3o) for reasons indicated in the medical record. [...] EFW: 5# leopolds Presentation: Vertex by U/S Prtat Score: 0 0 1 2 3 Position [...] VTE Prophylaxis: Not Indicated (more content not included)...[facility]01-03-2023 History and physical note* Cassie Constantino [...] 34w6d Is this patient being delivered between 64u0l-14g2b weeks with an acceptable medical indication (obstetric, maternal, and/or )? NA: Not Applicable: This patient is being delivered outside of the PC-01 range (61q5g-12c7q) for reasons indicated in the medical record. [...] Cassie Constantino MD 11/28/2022, 12:48 AM [facility] [id number] History and physical note* Cassie Constantino MD [...] 34w6d Is this patient being delivered between 91p0w-54s6x weeks with an acceptable medical indication (obstetric, maternal, and/or )? NA: Not Applicable: This patient is being delivered outside of the PC-01 range (97z0i-18g3v) for reasons indicated in the medical record. [...] [facility]01-02-2023 Evaluation + Plan note Extracted from:Title:OB High Risk Antepartum Visit *Author:WILLIAN BLACKWELL Fredi Date:11/27/22 Impression and Plan Diagnosis 34 weeks 5 days. Preeclampsia. contractions. Maternal tachycardia.. Course: Worsening, New onset headache may be a signal of worsening symptoms of preeclampsia.. Orders I discussed this case with the maternal- medicine department at [facility] in [facility], Dr. Thea Nieves, she accepted to transfer due to preeclampsia. Plan: Magnesium sulfate per protocol, betamethasone, transfer arrangements are in progress..[facility]08-19-[facility] Evaluation + Plan note Extracted from:Title:ED NoteAuthor:Kumar [...] Colace and Proctofoam and follow-up with her SUPERVISOR COLD ROLLING physician in the outpatient setting. She is provided with a note for work. Additional diagnosis: Constipation, UTI and [facility]08-19-2022 Hospital Discharge instructions Follow Up Care 07/14/2022 06:07:36 With:Denny Meza Address:Unknown When:07/17/2022 07:24:48 With:DENNY RODRÍGUEZ Address: [address] [place] [address]- Business (1) When:Within 3 Day(s) [facility]08-19-2022 Hospital Discharge instructions Follow Up Care 07/14/2022 04:40:16 With:Denny Meza Address: [address], [address] [place] [address]- Business (1) When:07/17/2022 Comments:Appointment has already been scheduledCall Dr if fever>100.5 F, heavy bleedingCall for any problems.Call for severe abdominal painCall physician for heavy vaginal bleedingCall physician if symptoms worsenPlease call if you need to rescheduleReturn for contractions closer, longer, harderReturn ifruptured membranes or vaginal bleeding [facility]05-31-2022 Evaluation + Plan note Diagnostic Tests Pending * Kcbts-0-Jjubqtdxxiy 04/25/22 * NIGEL w/Reflex if POS 04/25/22 * Ceruloplasmin 04/25/22 * HCV Antibody RFX to Quant PCR 04/25/22 * HBV Core Ab 04/25/22 * Hepatitis B Surface Antibody 04/25/22 * Hepatitis B Surface Antigen 04/25/22 * Smooth Muscle Antibody Screen 04/25/22 [facility]05-24-2022 Evaluation note* Encounter Date Diagnosis Assessment Notes Treatment Notes Treatment Clinical Notes March, Elevated liver function tests (I CD-10 - R79.89) LABS INDICATED ABOVE Mail'InsideCAN [employer] Other Evaluation note* Diagnosis Pelvic pain in female- Primary Unspecified symptom associated with female genital organs [facility] Diagnosis Chronic pelvic pain in female- Primary Unspecified symptom associated with female genital organs Constipation, unspecified constipation type High-tone pelvic floor dysfunction Other specified disorders of female genital organs Diastasis of rectus abdominis Dysmenorrhea Other specified dyspareunia documented [facility]* Diagnosis Endometriosis- Primary Endometriosis, site unspecified Pelvic and perineal pain Unspecified symptom associated with female genital organs [facility] Diagnosis Pelvic pain in female- Primary Unspecified symptom associated with female genital organs [facility] Diagnosis Pelvic pain in female- Primary Unspecified symptom associated with female genital organs [facility] Diagnosis High-tone pelvic floor dysfunction- Primary Other specified disorders of female genital organs Chronic pelvic pain in female Unspecified symptom associated with female genital organs [facility] Diagnosis Pelvic and perineal pain Unspecified symptom associated with female genital organs [facility] Diagnosis Menorrhagia with regular cycle Pelvic pain in female Unspecified symptom associated with female genital organs Uses control [facility]* Diagnosis Preeclampsia, severe, third trimester- Primary Preeclampsia, severe, third trimester [facility]* Diagnosis Pre-eclampsia, severe, delivered- Primary [facility]* Diagnosis Dysmenorrhea, unspecified [facility]* Diagnosis Well woman exam with routine gynecological exam Routine gynecological examination documented [facility]* Diagnosis Hypertension, unspecified type ([facility]/HCC)- Primary Paroxysmal tachycardia, unspecified (CMS/HCC) Paroxysmal tachycardia, unspecified Chronic right shoulder pain Pain in joint, shoulder region Scapular dyskinesis Lack of coordination documented in this encounter [facility]* Diagnosis Pain in female genitalia on intercourse Dyspareunia Endometriosis Endometriosis, site unspecified [facility] noteNo assessment information availableOhio State Health System Work Phone: Evaluation note* Diagnosis Missed menses , unspecified gestational age Encounter for supervision of normal first in first trimester documented [facility]* Diagnosis Nonintractable episodic headache, unspecified headache type- Primary Second trimester ([facility]-HCC) state, incidental 13 weeks gestation of ([facility]) documented [facility]* Diagnosis Sinusitis, unspecified chronicity, unspecified location- Primary Second trimester ([facility]-HCC) state, incidental 17 weeks gestation of ([facility]) Screening, , for anatomic survey ([facility]) Encounter for anatomic survey documented [facility]* Diagnosis 20 weeks gestation of ([facility]-HCC) Second trimester ([facility]) state, incidental Diabetes mellitus screening Screening for diabetes mellitus documented [facility]* Diagnosis Wellness examination- Primary Hypertension, unspecified type Lipid screening Screening for lipoid disorders documented [facility]* Diagnosis Wellness examination- Primary Hypertension, unspecified type Lipid screening Screening for lipoid disorders 24 weeks gestation of ([facility]) Second trimester ([facility]) state, incidental Elevated glucose tolerance test Impaired glucose tolerance test documented [facility]* Diagnosis Gestational diabetes mellitus (GDM) in second trimester, gestational diabetes method of control unspecified [facility] Diagnosis Wellness examination- Primary Hypertension, unspecified type Lipid screening Screening for lipoid disorders 26 weeks gestation of ([facility]) Second trimester ([facility]) state, incidental induced hypertension, antepartum ([facility]-H[facility]) Transient hypertension of , antepartum Gestational diabetes mellitus (GDM) in second trimester, gestational diabetes method of control unspecified ([facility]) documented in this encounter [facility]* Diagnosis Wellness examination- Primary Hypertension, unspecified type Lipid screening Screening for lipoid disorders Hypertension affecting , antepartum ([facility])- Primary 27 weeks gestation of ([facility]) Second trimester ([facility]) state, incidental documented in this encounter [facility]* Diagnosis Diet controlled gestational diabetes mellitus (GDM) in second trimester- Primary Essential hypertension affecting in third trimester [facility]* Diagnosis 28 weeks gestation of - Primary Insulin controlled gestational diabetes mellitus (GDM) in second trimester Essential hypertension affecting in third trimester [facility]* Diagnosis Essential hypertension affecting in third trimester [facility]* Diagnosis Wellness examination- Primary Hypertension, unspecified type Lipid screening Screening for lipoid disorders 29 weeks gestation of ([facility]) Third trimester ([facility]-HCC) state, incidental Hypertension affecting , antepartum ([facility]-HCC) Gestational diabetes mellitus (GDM), antepartum, gestational diabetes method of control unspecified([facility]-HCC) documented in this encounter [facility]* Diagnosis Insulin controlled gestational diabetes mellitus (GDM) in third trimester- Primary Essential hypertension affecting in third trimester [facility]* Diagnosis Insulin controlled gestational diabetes mellitus (GDM) in second trimester [facility]* Diagnosis Insulin controlled gestational diabetes mellitus (GDM) in second trimester [facility] general Narrative - Reported* Type Description Date Medical History headache Surgical HistoryappendectomySurgical Historyshoulder surgerySurgical History endometriosis [employer] Other History of Present illness Narrative* 26 [...] engaged x 1 year * working at [employer] in [place] [address] Work Phone: Hospital course Narrative No data available for this section [facility] No data available for this section [facility] CenterInstructionsNot on filedocumented in this encounter [facility]Not on filedocumented in this encounter [facility] System[facility]ructionsNot on filedocumented in this encounter [facility] SystemInstructionsNot on filedocumented in this encounter [facility] System[facility]ructions* Attachments The following attachments cannot be sent through Care Everywhere. * Preeclampsia (Honduran) documented in this encounterProMedica Health SystemInstructionsNot on file documented in this encounterProMedica Health SystemInstructionsNot on file documented in this encounterProMedica Health SystemInstructionsNot on file documented in this encounterProMedica Health SystemInstructionsNot on file documented in this encounterProMedica Health SystemProgress note No data available for this section [facility] CenterReason for visit NarrativePT HERE AT REQUEST OF DR RODRÍGUEZ FOR EVALUATION AND TREATMENT OF ELVATED LIVER FUNCTION- ( DR. SAMUEL PT), LABS FROM DR RODRÍGUEZ REVIEWED BY DR Iraheta [employer] Other Summary Purpose Family History Unknown Family [...] Bilateral ureterolysis Surgeon: Dr. Charlene Rodriguez Resident/Fellow/Other Marine Water Tender: Glory Palacio Anesthesia: general I.V. 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 RN HEDIS Reason for Referral SpecialtyDiagnoses / ProceduresReferred By ContactReferred To ContactMR IMAGING Diagnoses Pelvic and perineal pain Procedures MRI FEMALE PELVIS WO/W IVCON MRI PELVIS W/O & W/CONTRAST MATERIAL Charlene Rodriguez DO [address] [address] Mr Imaging Referral IDStatusReasonStart DateExpiration DateVisits RequestedVisits [id number] Auto-Generated Referral /[id number] / ProceduresReferred By ContactReferred To ContactREHAB AND SPORTS THERAPY INS Diagnoses Constipation, unspecified constipation type High-tone pelvic floor dysfunction Diastasis of rectus abdominis Dysmenorrhea Other specified dyspareunia Chronic pelvic pain in female Procedures CONSULT TO PHYSICAL THERAPY PHYSICAL THERAPY EVALUATION HIGH COMPLEX 45 MINS Jihan Downs APRN.MECHANICAL SERVICE SPECIALIST [id number]/A[address] [place] [address] [facility] [place] [address] [place] [id number] Referral IDStatusReasonStart DateExpiration DateVisits RequestedVisits [id number] Review Auto-Generated Referral / Chief Complaint and Reason for Visit Chief Complaint Admit Date N94.10 N80.9 February 02, 2025 3:1 6pm Additional Source Comments INFORMATION SOURCE (unrecogn ized section and content) DATE CREATED AUTHOR 10/26/2020 [facility] DATE CREATED AUTHOR AUTHOR'S ORGANIZ ATION 11/06/2020 [facility] DATE CREATED AUTHOR AUTHOR'S ORGANIZ ATION 12/17/[address] [facility] DATE CREATED AUTHOR AUTHOR'S ORGANIZ ATION 04/21/2021 [facility] DATE CREATED AUTHOR AUTHOR'S ORGANIZ ATION 06/05/2021 [facility] DATE CREATED AUTHOR AUTHOR'S ORGANIZ ATION 10/02/2021 [facility] DATE CREATED AUTHOR AUTHOR'S ORGANIZ ATION 02/10/2022 [employer] DATE CREATED AUTHOR AUTHOR'S ORGANIZ ATION 12/05/2022 [facility] DATE CREATED AUTHOR AUTHOR'S ORGANIZ ATION 04/30/2024 [facility] DATE CREATED AUTHOR AUTHOR'S ORGANIZ ATION 02/09/2025 [facility] DATE CREATED AUTHOR AUTHOR'S ORGANIZ ATION 03/15/2025 [facility] DATE CREATED AUTHOR AUTHOR'S ORGANIZ ATION 08/03/2025 [facility] DATE CREATED AUTHOR AUTHOR'S ORGANIZ ATION 08/13/2025 [facility] DATE CREATED AUTHOR AUTHOR'S ORGANIZ ATION 08/16/2025 [facility] DATE CREATED AUTHOR AUTHOR'S ORGANIZ ATION 08/20/2025 [facility] DATE CREATED AUTHOR AUTHOR'S ORGANIZ ATION 08/21/2025 [facility] DATE CREATED AUTHOR AUTHOR'S ORGANIZ ATION 08/29/2025 [facility] DATE CREATED AUTHOR AUTHOR'S ORGANIZ ATION 09/06/2025 [facility] DATE CREATED AUTHOR AUTHOR'S ORGANIZ ATION 09/12/2025 [facility] DATE CREATED AUTHOR AUTHOR'S ORGANIZ ATION 09/18/2025 [facility] EPIC Care Team (unrecognized sect ion and content) Team MemberRelationshipSpecialtyStart DateEnd Date Denny Rodríguez MD [address] [place] [address] PCP - GeneralFamily Medicine12/03/14Team MemberRelationshipSpecialtyStart DateEnd Date Denny Rodríguez MD [address] [place] [address] PCP - GeneralFamily Medicine12/03/14Team MemberRelationshipSpecialtyStart DateEnd Date Denny Rodríguez MD [address] [place] [address] PCP - GeneralFamily Medicine12/03/14Team MemberRelationshipSpecialtyStart DateEnd Date Denny Rodríguez MD [address] [place] [address] PCP - GeneralFamily Medicine12/03/14Team MemberRelationshipSpecialtyStart DateEnd Date Denny Rodríguez MD [address] [place] [address] PCP - GeneralFamily Medicine12/03/14Team MemberRelationshipSpecialtyStart DateEnd Date Denny Rodríguez MD [address] [place] [address] PCP - Generalmily Medicine12/03/14Team MemberRelationshipSpecialtyStart DateEnd Date Denny Rodríguez MD [address] [place] [address] PCP - Generalmily Medicine12/03/14Team MemberRelationshipSpecialtyStart DateEnd Date Denny Rodríguez MD [address] [place] [address] [facility]12/03/14Team MemberRelationshipSpecialtyStart DateEnd Date Denny Rodríguez MD [address] [place] [address] PCP - Generalmily Medicine12/03/14Team MemberRelationshipSpecialtyStart DateEnd Date Denny Rodríguez MD [address] [place] [address] PCP - Generalmily Medicine12/03/14Team MemberRelationshipSpecialtyStart DateEnd Date Denny Rodríguez MD [address] [place] [address] PCP - [facility] Qxulzhjhik23/1/21 Denny Rodríguez MD [address] [place] [address] PCP - GeneralFamily Medicine04/10/23 Denny Rodríguez MD [address] [place] [address] PCP - [facility]02/24/23 [facility] NP [address] [place] [address] Nurse PractitionerFavaly Bkbdboqc62/10/23 Trista Thao [facility] [address] [place] [address] Nurse PractitionerPulmonary Xjswrpq85/10/23Team MemberRelationshipSpecialtyStart DateEnd Date Denny Rodríguez MD [address] [place] [address] PCP - [facility]12/03/14Team MemberRelationshipSpecialtyStart DateEnd Date Denny Rodríguez MD [address] [place] [address] PCP - [facility]12/03/14Team MemberRelationshipSpecialtyStart DateEnd Date eDnny Rodríguez MD [address] [place] [address] PCP - [facility] Upyufyoxmq78/1/21 Denny Rodríguez MD [address] [place] [address] PCP - [facility]02/24/23 Eliceo Beltran DO [address] [place] [address] P[address] - [facility]02/14/24Team MemberRelationshipSpecialtyStart DateEnd Denny Rodríguez MD [address] [place], [facility] PCP - [facility] Ubxkhvswor94/1/21 Denny Rodríguez MD [address] [place] [address] PCP - [facility]02/24/23 Eliceo Beltran DO [address] [place], [facility] PCP - [facility]02/14/24Team MemberRelationshipSpecialtyStart DateEnd Date Denny Rodríguez MD [address] [place], [facility] PCP - [facility] Jnvtxbjnfs28/1/21 Denny Rodríguez MD [address] [place], [facility] PCP - [facility]02/24/23 Eliceo Beltran DO [address] [place], [facility] PCP - [facility]02/14/24Team MemberRelationshipSpecialtyStart DateEnd Date Denny Rodríguez MD [address] [place], [facility] PCP - [facility] Koiejwhdsz95/1/21 Denny Rodríguez MD [address] [place] [address] PCP - [facility]02/24/23 Eliceo Beltran DO [address] [place] [address] PCP - GeneralFamily Medicine02/14/24Team MemberRelationshipSpecialtyStart DateEnd Date Denny Rodríguez MD [address] [place] [address] PCP - [facility] Vjyldblgec58/1/21 Denny Rodríguez MD [address] [place] [address] PCP - [facility]02/24/23 Eliceo Beltran DO [address] [place] [address] PCP - GeneralFamily Medicine02/14/24Team MemberRelationshipSpecialtyStart DateEnd Date Denny Rodríguez MD [address] [place] [address] PCP - [facility] Ztntztdvql89/1/21 Eliceo Bletran DO [address] [place] [address] PCP - GeneralFamily Medicine02/14/24Team MemberRelationshipSpecialtyStart DateEnd Date Eliceo Beltran DO [address] [place] [address] PCP - GeneralFamily Medicine02/14/24Team MemberRelationshipSpecialtyStart DateEnd Date Eliceo Beltran DO [address] [place] [address] PCP - [facility] Medicine02/14/24 Team Status: Active Member Role Status Dates Denny Rodríguez MD Primary Care Provider Active Team Status: Inactive Member Role Status Dates Denny Rodríguez MD Primary Care Provider Active S tart: February 02, 2025 End: February 02orepearl Pop DOAttending ProviderActiveStart: February 02, 2025 End: February 02, 2025Team MemberRelationshipSpecialtyStart DateEnd Date Eliceo Beltran DO [address] [place] [address] PCP - [facility] Medicine02/14/24 Eliceo Beltran DO [address] [place] [address] PCP - [facility]07/27/2412Team MemberRelationshipSpecialty Start DateEnd Date Eliceo Beltran DO [address] [place] [address] PCP - [facility] Medicine02/14/24 Eliceo Beltran DO [address] [place] [address] PCP - [facility]07/27/2412Team MemberRelationshipSpecialty Start DateEnd Date Eliceo Beltran DO [address] [place] [address] PCP - [facility] Medicine02/14/24 Eliceo Beltran DO [address] [place] [address] PCP - [facility]07/27/2412Team MemberRelationshipSpecialty Start DateEnd Date Eliceo Beltran, DO [address] [place] [address] PCP - [facility] Medicine02/14/24 Eliceo Beltran, DO [address] [place] [address] PCP - [facility]07/27/2412Team MemberRelationshipSpecialty Start DateEnd Date Eliceo Beltran, DO [address] [place] [address] PCP - [facility] Medicine02/14/24 Eliceo Beltran, DO [address] [place] [address] PCP - [facility]07/27/2412Team MemberRelationshipSpecialty Start DateEnd Date Eliceo Beltran, DO [address] [place] [address] PCP - [facility] Medicine02/14/24 Eliceo Beltran, DO [address] [place] [address] PCP - [facility]07/27/2412Team MemberRelationshipSpecialty Start DateEnd Date Eliceo Beltran, DO [address] [place] [address] PCP - [facility] Medicine02/14/24 Eliceo Beltran, [address] [place] [address] PCP - [facility]07/27/2412Team MemberRelationshipSpecialty Start DateEnd Date Eliceo Beltran, [address] [place] [address] PCP - [facility] Medicine02/14/24 Eliceo Beltran, DO [address] [place] [address] PCP - [facility]07/27/2412Team MemberRelationshipSpecialty Start DateEnd Date Eliceo Beltran DO [address] [place] [address] PCP - [facility] Medicine02/14/24 Eliceo Beltran, [address] [place] [address] PCP - [facility]07/27/2412Team MemberRelationshipSpecialty Start DateEnd Date Eliceo Beltran DO [address] [place] [address] PCP - [facility] Medicine02/14/24 Eliceo Beltran DO [address] [place] [address] PCP - [facility]07/27/2412Team MemberRelationshipSpecialty Start DateEnd Date Eliceo Beltran DO [address] [place] [address] PCP - GeneralFamily Medicine02/14/24 Eliceo Beltran, DO [address] [place] [address] PCP - [facility]07/27/2412Team MemberRelationshipSpecialty Start DateEnd Date Denny Rodríguez MD [address] [place] [address] PCP - [facility] Medicine12/02/18Te MemberRelationshipSpecialtyStart DateEnd Date Dneny Rodríguez MD [address] [place] [address] PCP - [facility] Medicine12/02/18Te MemberRelationshipSpecialtyStart DateEnd Date Eliceo Beltran, [address] [place] [address] PCP - [facility] Medicine02/14/24 Eliceo Belrtan, [address] [place] [address] PCP - [facility]07/27/2412Team MemberRelationshipSpecialty Start DateEnd Date Eliceo Beltran, [address] [place] [address] PCP - [facility] Medicine02/14/24 Eliceo Beltran, [address] [place] [address] PCP - [facility]07/27/2412Team MemberRelationshipSpecialty Start DateEnd Date Eliceo Beltran, [address] [place] [address] PCP - GeneralFamily Medicine02/14/24 Eliceo Beltran, [address] [place] [address] PCP - [facility]07/27/2412Team MemberRelationshipSpecialty Start DateEnd Date Eliceo Beltran DO [address] [place] [address] PCP - [facility]mi Medicine02/14/24 Eliceo Beltran, [address] [place] [address] PCP - [facility]07/27/2412Team MemberRelationshipSpecialty Start DateEnd Date Denny Rodríguez MD [address] [place] [address] PCP - [facility] Medicine12/02/18Team MemberRelationshipSpecialtyStart DateEnd Date Eliceo Beltran, [address] [place] [address] PCP - GeneralFamily Medicine02/14/24 Eliceo Beltran DO [address] [place] [address] PCP - [facility]07/27/2412Team MemberRelationshipSpecialty Start DateEnd Date Eliceo Beltran, DO [address] [place] [address] PCP - [facility]02/14/24 Eliceo Beltran DO [address] [place] [address] PCP - [facility]07/27/2412Team MemberRelationshipSpecialty Start DateEnd Date Denny Rodríguez MD [address] [place] [address] PCP - [facility] Medicine12/02/18Team MemberRelationshipSpecialtyStart DateEnd Date Denny Rodríguez MD [address] [place] [address] PCP - [facility] Medicine12/02/18Te MemberRelationshipSpecialtyStart DateEnd Date Eliceo Beltran DO [address] [place] [address] [facility] Eliceo Beltran DO [address] [place] [address] PCP - [facility]07/27/2412Team MemberRelationshipSpecialty Start DateEnd Date Eliceo Beltran DO [address] [place] [address] [facility] - [facility]02/14/24 Eliceo Beltran DO [address] [place] [address] PCP - [facility]07/27/2412Team MemberRelationshipSpecialty Start DateEnd Denny Rodríguez MD [address] [place] [address] PCP - GeneralFamily Medicine12/02/18Team MemberRelationshipSpecialtyStart DateEnd Date Denny Rodríguez MD [address] [place] [address] PCP - GeneralFamily Medicine12/02/18Team MemberRelationshipSpecialtyStart DateEnd Date Denny Rodríguez MD [address] [place] [address] PCP - [facility] Cyudfvfntg24/1/ Denny Rodríguez MD [address] [place] [address] PCP - GeneralFamily Medicine Denny Rodríguez MD [address] [place], [facility] PCP - [facility] Eliceo Beltran DO [address] [place] [address] PCP - GeneralFamily Medicine02/14/24 Eliceo Beltran DO [address] [place] [address] PCP - [facility]07/27/2412 [facility], DEVYN [address] [place] [address] Nurse PractitionerFamily Qtjxwvnq77/10/235 Trista Thao [facility] [address] [place] [address] Nurse PractitionerPulmonary Rxpydlu81/10/235Team MemberRelationship SpecialtyStart DateEnd Date Eliceo Beltran DO [address] [place] [address] PCP - GeneralFamily Medicine02/14/24 Eliceo Beltran DO [address] [place] [address] PCP - [facility]07/27/2412Team MemberRelationshipSpecialty Start DateEnd Date Denny Rodríguez MD [address] [place] [address] PCP - GeneralFamily Medicine12/02/18 Source Comments (unrecognize [...] prosecute any alcohol or drug abuse patient.[facility] ClinicIn the event this information is protected by [...] AuthorizationOrilissaReasonCommentsPelvic PainSpecialtyDiagnoses / ProceduresReferred By ContactReferred To ContactOB/SUPERVISOR COLD ROLLING / GYNECOLOGY Diagnoses Painful menstrual periods Painful Periods Procedures OFFICE/OUTPATIENT ESTABLISHED SF MDM 10-19 MIN EST WHI PATIENT Jihan Downs, ATM SERVICER.MECHANICAL SERVICE SPECIALIST [address] [place] [address] Jihan Downs, ATM SERVICER.MECHANICAL SERVICE SPECIALIST [address] [place] [id number] Referral IDStatusReasonStart DateExpiration DateVisits RequestedVisits [id number]/25/202312/[id number] MRI SpecialtyDiagnoses / ProceduresReferred By ContactReferred To ContactMR IMAGING Diagnoses Pelvic and perineal pain Procedures MRI FEMALE PELVIS WO/W IVCON MRI PELVIS W/O & W/CONTRAST MATERIAL Charlene Rodriguez, DO [address] [facility] [facility] [address] [place] [address] [place] [address] Referral IDStatusReasonStart DateExpiration DateVisits RequestedVisits [id number] Auto-Generated Referral /[id number] DateCommentsRefill Hstvthb1801/02/2024eason CommentsMenorrhagiaCramping with bleedingReasonCommentsSurgery Cancelled SpecialtyDiagnoses / ProceduresReferred By ContactReferred To Contact Diagnoses Preeclampsia, severe, third trimester Procedures O14.13 - Preeclampsia, severe, third trimester Kathe Ryder, DO [address] [place] [address] [facility] [address] [place] [address] Referral IDStatusReasonStart DateExpiration DateVisits RequestedVisits [id number] Pressure CheckReasonCommentsDysmenorrhea ReasonCommentsWell Women VisitReasonCommentsShoulder PainReasonCommentsPainful IntercourseReasonCommentsAmenorrheaReasonCommentsRoutine VisitReason CommentsGestational DiabetesSpecialtyDiagnoses / ProceduresReferred By Contact Referred To ContactMaternal and Medicine Diagnoses Gestational diabetes mellitus (GDM) in second trimester, gestational diabetes method of control unspecified Nathan Pop R, DO [address] [place] [address] Phone: tel: fax: Maternal- Medicine at [facility] [address] [facility] [place] [address] Phone: tel: fax: Referral IDSadriantCaren DateExpiration DateVisits RequestedVisits [id number] Review Specialty Services Required [id number] consult Scheduled Active and Recently Administ ered Medications (unrecognized section and content) Medication Order/ ferrous sulfate tablet 325 mg 325 mg, [...] RN) * 0803 (Given - Provider: Alejandra Arcos RN) * 0942 (Given - Provider: Anna Booth RN) Medication Order/ magnesium sulfate 20 GM/500ML infusion () 2,000 mg/hr (50 mL/hr), IntraVENous, Continuous, Starting on Sun11/28/22 at 0100, For 3 days 2 hours * 0536 (New Bag - Provider: Chelsi Carlson RN) * 1502 (New Bag - Provider: Alejandra Arcos RN) * 0112 (New Bag - Provider: Lani Fraga, DIALLO) * 0300 (Stopped - Provider: Lani Fraga RN) oxytocin (Pitocin) 30 units in 500 mL infusion (CANCELED) 1-20 paulo-units/min (1-20 mL/hr), IntraVENous, Continuous, Starting on Sun11/29/22 at 1115, Begin infusion at 1 paluo-unit/min (1 paulo-unit per min = 1 mL per hour) and increase by 1 paulo-unit/min after 30 minutes. Then increase by 2 paulo-units/min as needed, no faster than every 30 minutes, until labor is achieved. Labor is defined as contractions every 2-3 minutes with cervical changes or [place] units (MVU) greater than 200 in a [...] paulo-units/min (125 mL/hr), IntraVENous, Continuous, Starting on Sun11/30/22 at 0430, For Immediate Post Use Only. Give after delivery of placenta and initial 30 unit bolus. Bag 2 of 2: 125cc/hr (125 mu/min) for an additional infusion of 500cc (30 units). * 0430 (Canceled Entry - Provider: Automatic Discharge Provider - Comment: Automatically canceled at discontinue of medication order) Medication Order11/30///05/2023 acetaminophen (Tylenol) tablet 650 mg 650 mg, [...] DIALLO) * 2327 (Given - Provider: Lida Mark, DIALLO) * 0942 (Given - Provider: Anna Booth, RN) * 1601 (Given - Provider: Anna Booth, RN) Benzocaine-Benzethonium 20-0.2 % spray Topical, As needed, pain, , Starting on Constance 11/30/22 at 0608, , Apply to perinealarea. Patient is capable and may self administer at bedside. diphenhydrAMINE (BENADryl) injection 25 mg(Linked Group 1) 25 mg, IntraVENous, Every 6 hours PRN, itching, Starting on Constance 11/30/22 at 1635 * 1654 (Given - Provider: Alejandra Arcos, DIALLO) diphenhydrAMINE (BENADryl) tablet/capsule 25 mg(Linked Group 1) 25 mg, Oral, Every 6 hours PRN, itching, Starting on Constance 11/30/22 at 1635 * 1654 (See Alternative - Provider: Alejandra Arcos, [...] hours. * 0531 (Given - Provider: Chelsi Carlson, DIALLO) * 1204 (Given - Provider: Alejandra Arcos, RN) * 1931 (Given - Provider: Lani Fraga, RN) * 0551 (Given - Provider: Lani Fraga, RN) * 1221 (Given - Provider: Alejandra [...] BE BASED ON THE PRIMARY CLINICAL RECORDS. [facility]. provides no warranty or guarantee of the accuracy or completeness of information in this document.
[2025-09-30 16:44] VITALS: BP 118/66; PULSE 87
== END 2025-09-30 16:45 | disposition home or self-care (01) ==
LOC: FBCO 16:16 → FBC 16:17
PROVIDERS: Family Provider Family Medicine; PCP Family Medicine; Visit Provider Obstetrics & Gynecology
DX: O24.419 Gestational diabetes mellitus in pregnancy, unspecified control (principal); Z3A.31 31 weeks gestation of pregnancy
CPT/HCPCS: 59025

== ENCOUNTER 2025-10-03 10:12 | Outpatient (OUT) | payer OTHER, SELFPAY ==
--- OUTSIDE RECORDS SUMMARY | 2025-09-03 14:50 | XMS_ITS | Encounter Summary ---
Author Organization [facility] Address [address] [place] [address] Care Team Providers Care Apple Picker Name Role Phone Eliceo Beltran DO Primary Care Provider CharlottegeovaniEliceo kauffman Unavailable [phone] Reason for Visit * ReasonCommentsRoutine Visit Encounter Details DateTypeDepartmentCare Team (Latest Contact Info)Suoyamahlmf12/09/2025 3:50 PM EDTRoutine [facility] [address] [place] [address] Steph Keane, DEVYN [address] [place] [address] Hypertension affecting , antepartum ([facility]) (Primary Dx); 27 weeks gestation of ([facility]); Second trimester ([facility]) Social History Tobacco UseTypesPacks/DayYears UsedDateSmoking Tobacco: NeverSmokeless Tobacco: NeverAlcohol UseStandard Drinks/WeekCommentsNever0 (1 standard drink = 0.6 oz pure alcohol)caffeine: 1-2 cups per day, coffee and [id number] Health Literacy AnswerDate RecordedHow often do you need to have someone help you when you read instructions, pamphlets, or other written material from your doctor or pharmacy? Never12/29/2024Humiliation, Afraid, Rape, and Kick questionnaireAnswerDate RecordedWithin the last year, have you been afraid of your partner or ex-partner?No09/19/2023Within the last year, have you been humiliated or emotionally abused in other ways by your partner or ex-partner?No09/19/2023 Within the last year, have you been kicked, hit, slapped, or otherwise physically hurt by your partner or ex-partner?No09/19/2023Within the last year, have you been raped or forced to have any kind of sexual activity by your part ner or ex-partner?No09/19/2023Social Connection and Isolation PanelAnswerDate RecordedIn a typical week, how many times do you talk on the phone with family, friends, or neighbors?More than three times a week12/29/2024How often do you get together with friends or relatives?Once a week12/29/2024How often do you attend yarsanism or pentecostal services?Patient mwnvpecz57/03/2025Do you belong to any clubs or organizations such as yarsanism groups, unions, [place] or athletic leodan ups, or school groups?No12/29/2024How often do you attend meetings of the clubs or organizations you belong to?Patient puhxhkfv53/03/2025re you , , , , never , or living with a partner? 12/29/2024UDIT-CAnswerDate RecordedQ1: How often do you have a drink containing alcohol?Monthly or less12/29/2024Q2: How many drinks containing alcohol do you have on a typical day when you are drinking?Patient does not drink12/29/2024Q3: How often do you have six or more drinks on one occasion?Never12/29/2024Overall Financial Resource Strain (CARDIA)AnswerDate RecordedHow hard is it for you to pay for the very basics like food, housing, medical care, and heating?Not hard at all12/29/2024PHQ-2AnswerDate RecordedPatient Health Questionnaire-2 Score0 07/30/2025[facility] [place] [facility] - Occupational Stress QuestionnaireAnswerDate RecordedDo you feel stress - tense, restless, nervous, or anxious, or unable to sleep at night because yourmind is troubled all the time - these days?Only a itrgvv9012/29/2024Exercise Vital SignAnswerDate Recorded On average, how many days per week do you engage in moderate to strenuous exercise (like a brisk walk)?3 days12/29/2024On average, how many minutes do you engage in exercise at this level?20 min12/29/2024Hunger Vital SignAnswerDate RecordedWithin the past 12 months, you worried that your food would run out before you got the money to buymore.Never true12/29/2024Within the past 12 months, the food you bought just didn't last and you didn't have money to get more.Never true12/29/2024PRAPARE - TransportationAnswerDate RecordedIn the past 12 months, has lack of transportation kept you from medical appointments or from getting medications?No12/29/2024In the past 12 months, has lack of transportation kept you from meetings, work, or from getting things needed for daily living?No12/29/2024Housing Stability Vital SignAnswerDate RecordedIn the last 12 months, was there a time when you were not able to pay the mortgage or rent on time?No09/19/2023Number of Places Lived in the Last YearNot on file 09/19/2023In the last 12 months, was there a time when you did not have a steady place to sleep or slept in [facility] (including now)?No09/19/2023Housing Stability Vital SignAnswerDate RecordedIn the last 12 months, was there a time when you were not able to pay the mortgage or rent on time?No12/29/2024Number of Times Moved in the Last YearNot on file12/29/2024t any time in the past 12 months, were you homeless or living in a nursing home (including now)?No12/29/2024 EducationAnswerDate RecordedWhat is the highest level of school you have completed or the highest degree you have received?High school ousugjea78/29/2023 Estimated Date of VntgssicSnaxsjgjTus66/03/2026ased on last menstrual period of 02/21/2025Sex and Gender InformationValueDate RecordedSex Assigned at BirthNot on fileLegal KglJonull86/15/2023 7:18 PM EDTGender IdentityNot on file Sexual OrientationNot on 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 jguznrgdvq-cvydgqr-cwolqenk (Fiorinal) 50-325-40 MG capsule 1 capsule, Oral, Every 4 hours PRN cetirizine (ZYRTEC) 10 mg, Oral, Daily RT Ferrous Sulfate (IRON PO) 1 tablet, Oral, Daily RT fluticasone (Flonase) 50 MCG/ACT nasal spray 1 spray, Nasal, Daily RT Glucose Blood (Blood Glucose Test) strip 1 [...] San infection Headache History of menstrual cramps ([facility]) Varicella zoster Visual impairment HISTORY PAST MEDICAL [...] History: Procedure Laterality Date APPENDECTOMY 05/2016 at [facility] DIL[facility] AND CURETTAGE 12/2022 retained placenta DISTAL [...] nursing note reviewed. Exam conducted with a crabber present. Vitals: Estimated body mass index is 29.41 kg/m?? as calculated from the following: Height as of 07/30/25: 5' 2 . Weight as of this encounter: 160 lb 12.8 oz. BP: 170/90 Patient's last menstrual period was 02/21/2025. ASSESSMENT & PLAN ICD-10-CM 1. 27 weeks gestation of ([facility]) Z3A.27 POCT urinalysis dipstick manually resulted 2. Second trimester ([facility] Z34.92 Return OB: Patient presents today for a routine obstetrics appointment. Patient is currently 27w5d . Patient states she is doing well but has complaints of being tired due to current . Patient has verbalizes frequent movement. labor precautions was discussed/given and patient was instructed to perform kick counts three times a day. Patients blood pressure remained elevated throughout today's visit. She denies headache or visual acuity changes but does have significant lower extremity edema and a history of Preeclampsia and premature delivery at 35 weeks. Orders Placed This Encounter Procedures POCT urinalysis dipstick manually resulted Follow Up: I spoke with Labor and Delivery and they are aware of the patients current hypertensive state and she is going to present to L/D directly from our office today for further evaluation. Documented by Steph Keane NP on behalf of: Steph Keane NP documented in this encounter Plan of Treatment DateTypeDepartmentCare Team (Latest Contact Info)Ursultlkbha41/19/2025 3:30 PM ESTRoutine [facility] [address] [place] [phone] Nathan Pop DO [address] [facility] [address] [place] [address] documented as of this encounter Procedures Procedure NamePriorityDate/TimeAssociated DiagnosisCommentsPOCT URINALYSIS IPVUMHOQQnhcdge92/09/2025 4:26 PM EDT 27 weeks gestation of ([facility]) documented in this encounter Results * POCT urinalysis dipstick manually resulted (09/03/2025 4:26 PM EDT)Component ValueRef RangeTest MethodAnalysis TimePerformed AtPathologist SignatureColor, UAYellowClarity, UAClearGlucose, UANegativeNegative - 2000(110) ++++ mg/dL Bilirubin, UANegativeNegative - 4(70) +++ mg/dLKetones, UANegativeNegative - 160(16) ++++ mg/dLSpec Grav, UA1.0051 - 1.03Blood, UANegativeNegative - 50 Teodoro/mcLpH, UA6.55 - 9Protein, UANegativeNegative - 2000(20) ++++ mg/dL Urobilinogen, UA2.00.2 - 12 mg/dLLeukocytes, UANegativeNegative - 500+++ Robinson/mcLNitrite, UANegativeNegative - PositiveSpecimen (Source)Anatomical Location / LateralityCollection Method / VolumeCollection TimeReceived Time Urine09/03/2025 4:26 PM EDT Narrative Authorizing ProviderResult TypeResult StatusSteph Keane NPPOINT OF CARE TEST ENTER/EDIT ORDERABLESFinal Result documented in this encounter Visit Diagnoses Diagnosis Hypertension affecting , antepartum ([facility])- Primary 27 weeks gestation of ([facility]) Second trimester ([facility]) state, incidental documented in this encounter Care Teams Team MemberRelationshipSpecialtyStart DateEnd Date Eliceo Beltran DO [address] [place] [address] PCP - GeneralFamily Medicine02/14/24 Eliceo Beltran DO [address] [place] [address] PCP - Medical [place] [employer]07/27/2412documented as of this encounter
--- OUTSIDE RECORDS SUMMARY | 2025-09-16 14:20 | XMS_ITS | Encounter Summary ---
Author Organization [facility] Address [address] [place] [address] Care Team Providers Care Macaroni Maker Name Role Phone CharlotteEliceo medina Primary Care Provider CharlottecarolEliceo Bryant DAY Unavailable [phone] Encounter Details DateTypeDepartmentCare Team (Latest Contact Info)Ajczctvurrw29/22/2025 3:20 PM EDTRoutine [facility] [address] [place] [phone] Nathan Pop DO [address] [place], [facility]11 29 weeks gestation of ([facility]); Third trimester ([facility]); Hypertension affecting , antepartum ([facility]); Gestational diabetes mellitus (GDM), antepartum, gestational diabetes method of control unspecified([facility]) Social History Tobacco UseTypesPacks/DayYears UsedDateSmoking Tobacco: NeverSmokeless Tobacco: NeverAlcohol UseStandard Drinks/WeekCommentsNever0 (1 standard drink = 0.6 oz pure alcohol)caffeine: 1-2 cups per day, coffee and [id number] Health Literacy AnswerDate RecordedHow often do you [...] relatives?Once a week12/29/2024How often do you attend cheondoism or hinduism services?Patient ntiietzz70/03/2025Do you belong to any clubs or organizations such as cheondoism groups, unions, fraMicroInvention or athletic leodan ups, or school groups?No12/29/2024How often do you attend meetings of the clubs or organizations you belong to?Patient lgndtiix88/03/2025re you , , , , never , [...] hard at all12/29/2024PHQ-2AnswerDate RecordedPatient Health Questionnaire-2 Score0 07/30/2025[facility] [place] of Occupational Health - Occupational Stress QuestionnaireAnswerDate RecordedDo you feel stress - tense, restless, nervous, or anxious, or unable to sleep at night because yourmind is troubled all the time - these days?Only a weazel8512/29/2024Exercise Vital SignAnswerDate Recorded On average, how many [...] steady place to sleep or slept in [facility] (including now)?No09/19/2023Housing Stability Vital SignAnswerDate RecordedIn the last 12 months, was there a time when you were not able to pay the mortgage or rent on time?No12/29/2024Number of Times Moved in the Last YearNot on file12/29/2024t any time in the past 12 months, were you homeless or living in a longterm (including now)?No12/29/2024 EducationAnswerDate RecordedWhat is the highest level of school you have completed or the highest degree you have received?High school wbmhglin99/29/2023 Estimated Date of ZmqfzacvNxnvkqgtNdm02/03/2026ased on last menstrual period of 02/21/2025Sex and Gender InformationValueDate RecordedSex Assigned at BirthNot on fileLegal CogUxntik81/15/2023 7:18 PM EDTGender IdentityNot on file Sexual OrientationNot on 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 Not on fileNot on fileNot on filedocumented as of this encounter Last Filed Vital Signs Vital SignReadingTime TakenCommentsBlood Kgygdlth931/8010 4:04 PM EDT Pulse--Temperature--Respiratory Rate--Oxygen Saturation--Inhaled Oxygen Concentration--Zifamb82.8 kg (162 lb 12.8 oz)09/16/2025 4:04 PM [...] John San infection GDM (gestational diabetes mellitus) ([facility]) Headache History of menstrual cramps ([facility]) Varicella zoster Visual impairment HISTORY PAST MEDICAL HISTORY SOCIAL HISTORY Past Medical History: Diagnosis Date Amenorrhea d/t oral contraceptive pills Endometriosis John San infection GDM (gestational diabetes mellitus) ([facility]) Headache History of menstrual cramps severe Hypertension ([facility]) x1 Varicella zoster unsure Visual impairment w/ [...] History: Procedure Laterality Date APPENDECTOMY 05/2016 at [facility] [place] [facility] 12/2022 retained placenta DISTAL [...] nursing note reviewed. Exam conducted with a education liaison present. Vitals: Estimated body mass index is 29.78 kg/m?? as calculated from the following: Height as of 07/30/25: 5' 2 . Weight as of this encounter: 162 lb 12.8 oz. BP: 120/80 Patient's last menstrual period was 02/21/2025. Assessment/Plan ICD-10-CM 1. 29 weeks gestation of ([facility]) Z3A.29 POCT urinalysis dipstick manually resulted 2. Third trimester ([facility]) Z34.93 POCT urinalysis dipstick manually resulted 3. Hypertension affecting , antepartum ([facility]) O16.9 4. Gestational diabetes mellitus (GDM), antepartum, gestational diabetes method of control unspecified ([facility]) O24.419 Return OB: Patient presents today [...] and continues to report glucose log to [facility]. Follow up Ultrasound in 4 weeks. Orders Placed This Encounter Procedures POCT urinalysis dipstick manually resulted Follow Up: Patient is to return to office in 2 week for routine OB appointment. Documented by Steph Keane NP on behalf of: Nathan Pop DO documented in this encounter Plan of Treatment DateTypeDepartmentCare Team (Latest Contact Info)Znktgqyjyip63/19/2025 3:30 PM ESTRoutine [facility] [address] [place] [phone] Nathan Pop DO [address] [place], [place] [id number] NameTypePriorityAssociated DiagnosesOrder ScheduleUS OB follow up transabdominal approachImagingRoutine Gestational diabetes mellitus (GDM), antepartum, gestational diabetes method of control unspecified([facility]) every 4 weeks for 2 Occurrences starting 09/16/2025 until 12/17/2025US biophysical profile w non stress testImagingRoutine Gestational diabetes mellitus (GDM), antepartum, gestational diabetes method of control unspecified([facility]) Expected: 09/16/2025, Expires: 09/16/2026documented as of this encounter Procedures Procedure NamePriorityDate/TimeAssociated DiagnosisCommentsPOCT URINALYSIS QTYSHKLPMnrcbga54/22/2025 4:09 PM EDT 29 weeks gestation of ([facility]) Third trimester ([facility]) documented in this encounter Results * POCT [...] Visit Diagnoses Diagnosis 29 weeks gestation of ([facility]) Third trimester ([facility]) state, incidental Hypertension affecting , antepartum ([facility]) Gestational diabetes mellitus (GDM), antepartum, gestational diabetes method of control unspecified([facility]) documented in this encounter Care Teams Team MemberRelationshipSpecialtyStart DateEnd Date Eliceo Beltran DO [address] [place] [address] PCP - GeneralFamily Medicine02/14/24 Eliceo Beltran DO [address] [place] [address] PCP - Medical [employer]07/27/2412documented as of this encounter
--- OUTSIDE RECORDS SUMMARY | 2025-09-30 15:00 | XMS_ITS | Encounter Summary ---
Author Organization [facility] Address [address] [place] [address] Care Team Providers Care Trailer Assembler Name Role Phone CharlotteEliceo medina Primary Care Provider Charlottecarol Eliceo Hurtado DO Unavailable [phone] Reason for Visit * ReasonCommentsRoutine Visit Encounter Details DateTypeDepartmentCare Team (Latest Contact Info)Ekvggcrsnjp95/05/2025 3:00 PM ESTRoutine [facility] [address] [place] [phone] Nathan Pop DO [address] [place] [place], [place] [phone] Third trimester ([facility]); 31 weeks gestation of ([facility]); Pre-eclampsia in third trimester ([facility]) Social History Tobacco UseTypesPacks/DayYears UsedDateSmoking Tobacco: NeverSmokeless Tobacco: NeverAlcohol UseStandard Drinks/WeekCommentsNever0 (1 standard drink = 0.6 oz pure alcohol)caffeine: 1-2 cups per day, coffee and [id number] Health Literacy AnswerDate RecordedHow often do you [...] relatives?Once a week12/29/2024How often do you attend temple or islam services?Patient pxqqubwy81/03/2025Do you belong to any clubs or organizations such as temple groups, unions, [employer] or athletic leodan ups, or school groups?No12/29/2024How often do you attend meetings of the clubs or organizations you belong to?Patient jnibdmwk16/03/2025re you , , , , never , [...] all12/29/2024PHQ-2AnswerDate RecordedPatient Health Questionnaire-2 Score0 07/30/2025[facility] [place] of Occupational Health - Occupational Stress QuestionnaireAnswerDate RecordedDo you feel stress - tense, restless, nervous, or anxious, or unable to sleep at night because yourmind is troubled all the time - these days?Only a slepdo6412/29/2024Exercise Vital SignAnswerDate Recorded On average, how many [...] steady place to sleep or slept in [facility] (including now)?No09/19/2023Housing Stability Vital SignAnswerDate RecordedIn [...] the highest degree you have received?High school qqrpcixo66/29/2023 Estimated Date of XgsfawubPbissanrAan35/03/2026ased on last menstrual period of 02/21/2025Sex and Gender InformationValueDate RecordedSex Assigned at BirthNot on fileLegal AycNqbgfv46/15/2023 7:18 PM EDTGender IdentityNot on file Sexual OrientationNot on 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 Not on fileNot on fileNot on filedocumented as of this encounter Last Filed Vital Signs Vital SignReadingTime TakenCommentsBlood Aedblgss737/8209/30/2025 3:04 PM EST Pulse--Temperature--Respiratory Rate--Oxygen Saturation--Inhaled Oxygen Concentration--Oahotx73.3 kg (166 lb)09/30/2025 3:04 PM ESTHeight--Body Mass Index30.36007/30/2025 3:36 PM EDTdocumented in this encounter Plan of Treatment DateTypeDepartmentCare Team (Latest Contact Info)Ovyavmjccbm80/19/2025 3:30 PM ESTRoutine [facility] [address] [place] [phone] Nathan Pop DO [address] [place], [place] [phone] documented as of this encounter Procedures Procedure NamePriorityDate/TimeAssociated DiagnosisCommentsPOCT URINALYSIS IZYWWRDDEtogaqa11/05/2025 3:13 PM EST Third trimester ([facility]) documented in this encounter Results * POCT urinalysis dipstick manually resulted (09/30/2025 3:13 PM EST)Component ValueRef RangeTest MethodAnalysis TimePerformed AtPathologist SignatureColor, UAYellowClarity, UAClearGlucose, UANegativeNegative - 1999(110) ++++ mg/dL Bilirubin, UANegativeNegative - 4(70) +++ [...] this encounter Visit Diagnoses Diagnosis Third trimester ([facility]) state, incidental 31 weeks gestation of ([facility]) Pre-eclampsia in third trimester ([facility]) documented in this encounter Care Teams Team MemberRelationshipSpecialtyStart DateEnd Date Eliceo Beltran DO [address] [place] [address] PCP - GeneralFamily Medicine02/14/24 Eliceo Beltran DO [address] [place] [address] PCP - Medical [place] [employer]07/27/2412documented as of this encounter
--- OUTSIDE RECORDS SUMMARY | 2025-10-03 10:16 | XMS_ITS | Patient Health Record ---
Author Organization [facility] Address [address] [place] [address] Care Team Providers Care Senior Net Web Developer Name Role Phone Cruz Rodríguez Primary Care [...] Quad PFS (0.5mL Admin) 18 y/o & xxiuwZzxmrsd18/30/7694Nfwyjcih1219 Fluzone Quad PFS (0.5mL Admin) 6 months & rgaczJlotint33/17/0226Ztlpxrtf0080 Fluzone, 6mo & older, Quad MDV (0.5mL Admin)Hwglgnd0507/16/20239750Uwmeisrk4835 Fluzone, 6mo & older, Quad PFS (0.5mL Admin)Sbumtdd55/18/2023Contraindications z2023 Fluzone, 6mo & older, Quad PFS (0.5mL Admin)Wnboyqk59/20/2024Refused Social History Tobacco Use: Social History Observation [...] Status W/U Status Risk Notes Problem Tachycardia (4432259) Tachycardia (R00.0) ActiveconfirmedProblemObesity ([id number])Obesity (BMI 30-39.9) (E66.9)Active confirmed Plan Of Treatment No Information Insurance Providers Payer Name Payer Address Payer Phone Subscriber Number Group Number Insured Name Patient Relationship to Insured Coverage Start Date Coverage End Date [employer] [facility] [address] [place] [address] [id number] Driss Woodruff Self - patient is the insured Medical [place] [facility] [address] [place] [phone] [id number], AlexisSelf - patient is the insured Medical (General) History Medical History History ICD Code Tachycardia R00.0 Surgical History Surgery Date(Month/Year) right shoulder surgery appendectomyendometriosisHospitalization History Reason Date(Month/Year) surgeries childbirth
--- OUTSIDE RECORDS SUMMARY | 2025-10-03 10:16 | XMS_ITS | Encounter Summary ---
Author Organization [facility] tem Address [id number] [address] [place] [address] Care Team Providers Care Tractor Expert Name Role Phone Cruz Rodríguez MD Primary Care Provider [phone] Encounter Details DateTypeDepartmentCare Team (Latest Contact Info)Rhddtpnoshl16/27/2025Remote Patient Monitoring Maternal- Medicine at [facility] [address] [place] [phone] Kayleigh Rizzo, PAAlbinC [address] [address] Insulin controlled gestational diabetes mellitus (GDM) in [...] or more drinks on one occasion?Never09/10/2025hildcareAnswer Date JrfpjbelWznknshajFxgpjjn26/13/2019EmploymentAnswerDate RecordedEmployment Nxcmhoc3705/08/2019Hunger ScreeningAnswerDate RecordedWithin the past 12 months we worried whether our food would run out before we got money to buy more.Never True09/10/2025Within the past 12 months the food we bought just didn't last and we didn't have money to get more.Never True09/10/2025Purpose - LifeAnswerDate RecordedPurpose and direction in ubluUctocdt34/11/2021Estimated Date of JbfihiidQpdcxrdgBao96/03/2026Based on last menstrual period of 02/21/2025 (Exact Date)Sex and Gender InformationValueDate RecordedSex Assigned at BirthNot on fileLegal AupUrhili44/07/2019 2:55 PM ESTGender IdentityNot on fileSexual OrientationNot on filedocumented as of this encounter Progress Notes * Kayleigh Rizzo PA-C - 09/21/2025 12:28 PM EDT Insulin dose increased due to elevated fastings. Kayleigh Rizzo PA-C 09/21/25 1229 documented in this encounter Plan of Treatment DateTypeDepartmentCare Team (Latest Contact Info)Buppucztolv13/10/2025 3:00 PM ESTTelemedicine Maternal- Medicine at [facility] [address] [place] [address] Kayleigh Rizzo PA-C [address] [address] 10/08/2025 8:00 AM ESTAppointment Maternal Medicine [place] [address] [facility] [address] [place] [address] documented as of this encounter Visit Diagnoses Diagnosis Insulin controlled gestational diabetes mellitus (GDM) in third trimester- Primary Essential hypertension affecting in third trimester documented in this encounter Care Teams Team MemberRelationshipSpecialtyStart DateEnd Date Cruz Rodríguez MD [address] [place] [address] PCP - GeneralFamily Medicine12/02/18documented as of this encounter
--- OUTSIDE RECORDS SUMMARY | 2025-10-03 10:16 | XMS_ITS | Encounter Summary ---
Author Organization [facility] Address [address] [place] [address] Care Team Providers Care Ruling Machine Feeder Name Role Phone Cruz Rodríguez MD Unavailable + [phone] Cruz Rodríguez MD Primary Care Provider [phone] Cruz Rodríguez MD Unavailable + 54 [facility] [place] SEW ON OPERATOR Unavailable Trista Thao SEW ON OPERATOR Unavailable [phone] Eliceo Beltran DO Primary Care Provider [phone] Eliceo Beltran DO Unavailable [phone] Encounter Details DateTypeDepartmentCare Team (Latest Contact Info)Vmuzbrsfbxy90/20/2024Clinisync Result Encounter [facility] Unsolicited Jony Pop, DO [address] [place] [address] Social History Tobacco UseTypesPacks/DayYears UsedDateSmoking Tobacco: NeverSmokeless Tobacco: NeverAlcohol UseStandard Drinks/WeekCommentsNever0 (1 standard drink = 0.6 oz pure alcohol)caffeine: 1-2 cups per day, coffee and liiD6909 Health Literacy AnswerDate RecordedHow often do you [...] relatives?Once a week12/29/2024How often do you attend synagogue or protestant services?Patient /03/2025Do you belong to any clubs or organizations such as synagogue groups, unions, atHomestars or athletic leodan ups, or school groups?No12/29/2024How often do you attend meetings of the clubs or organizations you belong to?Patient udxxrpjf18/03/2025re you , , , , never , [...] hard at all12/29/2024PHQ-2AnswerDate RecordedPatient Health Questionnaire-2 Score0 07/30/2025[facility] - Occupational Stress QuestionnaireAnswerDate RecordedDo you feel stress - tense, restless, nervous, or anxious, or unable to sleep at night because yourmind is troubled all the time - these days?Only a etcyev7612/29/2024Exercise Vital SignAnswerDate Recorded On average, how many [...] place to sleep or slept in [facility] (including now)?No09/19/2023Housing Stability Vital SignAnswerDate [...] the highest degree you have received?High school gluzpgbg81/29/2023 CommentsUnknownSex and Gender InformationValueDate RecordedSex Assigned at BirthNot on fileLegal UgdDexaup41/15/2023 7:18 PM EDTGender IdentityNot on fileSexual OrientationNot on 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 End Date CashierNot on fileNot on fileNot on filedocumented as of this encounter Functional Status * AUDIT-C ScoreAnswerDate of CxnqbyhlelDbosub563/03/2025 10:25 PM ESTChristine, Generic * Q1: How [...] or more drinks on one occasion?AnswerDate of WtkhtosofyUirssnBmjcp65/03/2025 10:25 PM ESTChristine, Generic * Over the past 2 weeks, how often have you been bothered by any of the following problems?QuestionAnswerDate of AssessmentAuthorLittle interest or pleasure in doing thingsNot at all07/30/2025 3:36 PM EDBill Wallis LPNFeeling down, depressed, or hopelessNot at all07/30/2025 3:36 PM EDT Bill Gould LPNPatient Health Questionnaire-2 Wtuyn039 3:36 PM Bill Locke LPN documented as of this encounter Plan of Treatment DateTypeDepartmentCare Team (Latest Contact Info)Qvwvlxtvrdr55/19/2025 3:30 PM ESTRoutine [facility] [address] [place] [phone] Jony Pop DO [address] [place] [address] documented as of this encounter Procedures Procedure NamePriorityDate/TimeAssociated DiagnosisCommentsECG 12-LEAD02/13/2024 2:55 PM EDT documented in this encounter Results * ECG 12-LEAD (02/13/2024 2:55 PM EDT)Anatomical RegionLateralityModalityOther Specimen (Source)Anatomical Location / LateralityCollection Method / Volume Collection TimeReceived Time02/13/2024 2:55 PM EDT Narrative 02/14/2024 6:50 AM EDT [facility] ?[address] ? [place], [facility] ? Electrocardiograph Report ? Signed ? Patient: DRISS COPE ?MR#: [id number] ?? : 1995 ?Acct:[id number] ?? Age/Sex: 28 / F ?ADM Date: 02/13/24 ?? Loc: PST ? Attending Dr: Jony Pop D.O. ? Ordering Physician: Jony Pop D.O. ?? Date of Service: 02/13/24 ?? Procedure(s): ECG 12 lead ?? Accession Number(s): [id number] ? cc: ?[facility] ? Test Date: ?2024-02-13 ?? Pat Name: ? DRISS BARBERBOYD ? Department: ? Room: ? - ?? Gender: ? Female ? 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 : ?1995 ? Requested By: JONY POP ?? Order Number: [id number] ?Reading MD: ?? RAMSEY ??BALL ? Measurements ?? Intervals ?[place] ? Rate: ? 86 ? P: ?31 ?? MS: ? 133 ?QRS: ?20 ?? QRSD: ? 89 ? T: ?47 ?? QT: ? 374 ? QTc: ?449 ? Interpretive Statements ?? SINUS RHYTHM ?? No previous ECG available for comparison ?? Electronically Signed On 02-14-2024 6:50:27 EDT by RAMSEY ??BALL ? Dictated By: ?Ball,Ramsey D.O. ? Signed By: ?02/14/24 0650 ? DD/ 1455 ? TD/TT: ? Wine Blender: Procedure Note Radiology, Radiologist, MD - 02/14/2024 [place] [address] Electrocardiograph Report Signed Patient: DRISS COPE [facility]#: [id number] : 1995Acct:[id number] Age/Sex: 28 / FADM Date: 02/13/24 Loc: PST Attending Dr: Jony Pop D.O. Ordering Physician: Jony Pop D.O. 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 Signed By:02/14/24 0650 DD/ 1455 TD/TT: Wine Blender: Authorizing ProviderResult TypeResult StatusCorey Kiesha DOCLINISYNC IMAGINGFinal Result documented in this encounter Visit Diagnoses Not on filedocumented in this encounter Care Teams Team MemberRelationshipSpecialtyStart DateEnd Date Cruz Rodríguez MD [address] [place] [address] PCP - [facility]09/26/2112 Cruz Rodríguez MD [address] [place] [address] PCP - [facility] Cruz Rodríguez MD [address] [place] [address] PCP - [facility]/ Eliceo Beltran DO [address] [place] [address] [facility] - [facility] Eliceo Beltran DO [address] [place] [address] PCP - Medical [employer]07/27/2412 Zenobia [place] NP [address] [place] [address] Nurse PractitionerFamily Gzrvukdm30/10/235 Trista Thao NP [address] [place] [address] Nurse PractitionerPulmonary Rehcfqw05/10/235documented as of this encounter
--- OUTSIDE RECORDS SUMMARY | 2025-10-03 10:16 | XMS_ITS | Encounter Summary ---
Author Organization [facility] tem Address [id number] [place] [address] Care Team Providers Care Pharmacy Scheduler Name Role Phone Cruz Rodríguez MD Primary Care Provider [phone] Encounter Details DateTypeDepartmentCare Team (Latest Contact Info)Ydfbrovudtq50/27/2025Telephone Maternal- Medicine at [facility] [address] [place] [phone] Verito Gudino, LD [address] [place] [address] Social History Tobacco UseTypesPacks/DayYears UsedDateSmoking Tobacco: NeverSmokeless Tobacco: NeverAlcohol UseStandard Drinks/WeekCommentsNo0 (1 standard drink = 0.6 oz pure alcohol)AUDIT-CAnswerDate RecordedQ1: How often do you have a drink containing alcohol?Never09/10/2025Q2: How many drinks containing alcohol do you have on a typical day when you are drinking?Patient does not drink09/10/2025Q3: How often do you have six or more drinks on one occasion?Never5ChildcareAnswer Date UlweyywpSqtjlereqMgjbmkn77/13/2019EmploymentAnswerDate RecordedEmployment Ocfrjyo4705/08/2019Hunger ScreeningAnswerDate RecordedWithin the past 12 months we worried whether our food would run out before we got money to buy more.Never True09/10/2025Within the past 12 months the food we bought just didn't last and we didn't have money to get more.Never True09/10/2025Purpose - LifeAnswerDate RecordedPurpose and direction in pwutRkdclzv25/11/2021Estimated Date of XdqazkgpShgvacckTve86/03/2026Based on last menstrual period of 02/21/2025 (Exact Date)Sex and Gender InformationValueDate RecordedSex Assigned at BirthNot on fileLegal KrdTjwmkt31/07/2019 2:55 PM ESTGender IdentityNot on fileSexual OrientationNot [...] Plan of Treatment DateTypeDepartmentCare Team (Latest Contact Info)Ttufplsallk93/10/2025 3:00 PM ESTTelemedicine Maternal- Medicine at [facility] [address] [place] [phone] Kayleigh Rizzo PA-C [address] [facility] [address] [address] 10/08/2025 8:00 AM ESTAppointment Maternal Medicine [place] [address] [facility] [address] [place] [address] documented as of this encounter Visit Diagnoses Diagnosis Insulin controlled gestational diabetes mellitus (GDM) in second trimester documented in this encounter Care Teams Team MemberRelationshipSpecialtyStart DateEnd Date Cruz Rodríguez MD [address] [place] [address] PCP - GeneralFamily Medicine12/02/18documented as of this encounter
--- OUTSIDE RECORDS SUMMARY | 2025-10-03 10:16 | XMS_ITS | CCD ---
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 Name Role Phone Unavailable Unavailable OPAL LARA Referring Unavailable DENNY RODRÍGUEZ Primary Care Unavailable OPAL LARA Referring Unavailable DENNY RODRÍGUEZ Primary Care Unavailable DENNY RODRÍGUEZ Primary Care Physician Domo Hodges Unavailable PAOLO DIALLO Attending Unavailable KATHE RYDER Admitting Unavailable KATHE RYDER Attending Unavailable Denny Rodríguez MD Primary Care Provider [phone] Denny Rodríguez MD Unavailable [phone] Denny Rodríguez MD Primary Care Provider [phone] Denny Rodríguez MD Unavailable Kita ENVIRONMENTAL PROPERTY ASSESSOR, Zenobia Unavailable Keesha SHEPARD, Trista R Unavailable [phone] Denny Rodríguez MD Primary Care Provider CHARLENE RODRIGUEZ Referring Unavailable RODRÍGUEZ, DENNY SAHIL Primary Care Unavailable BILLCHARLENE JIMENEZ Attending Unavailable RODRÍGUEZ, DENNY SAHIL Referring Unavailable RODRÍGUEZ, DENNY SAHIL Primary Care Unavailable BILLMARCY JIMENEZN Attending Unavailable RODRÍGUEZ, DENNY SAHIL Primary Care Unavailable RODRÍGUEZ, DENNY SAHIL Primary Care Unavailable BILLMARCY JIMENEZN Attending Unavailable REAPER, JIHAN Referring Unavailable REAPER, JIHAN Attending Unavailable RODRÍGUEZ, DENNY SAHIL Primary Care Unavailable RODRÍGUEZ, DENNY SAHIL Primary Care Unavailable REAPER, JIHAN Attending Unavailable Unavailable Primary Care Provider UnavailEliceo Gibbons DO Primary Care Provider ELICEO MALONEY Primary Care Physician Unavailab Denny Ross MD Primary Care Provider [phone] KieshaNathan jarrell DO Attending Provider [phone] Kiesha, Nathan Admitting Unavailable Kiesha, Nathan Attending Unavailable Dickson Rodríguezian Primary Care Unavailable KIESHA, Nathan R Attending Unavailable KIESHA, Nathan R Referring Unavailable KIESHA, Nathan R Admitting Unavailable KIESHA, Nathan R Attending Unavailable KIESHA, Nathan R Admitting Unavailable Kaftan DO Eliceo R Unavailable [phone] Yomaira BELTRAN Attending Unavailable KAFTAN, G KENNETH Admitting Unavailable KIESHA, Nathan R Attending Unavailable KIESHA, Nathan R Admitting Unavailable KIESHA, Nathan R Admitting Unavailable KIESHA, Nathan R Attending Unavailable KAFTAN, G KENNETH Admitting Unavailable KAFTAN, G KENNETH Attending Unavailable KAFTAN, G KENNETH Admitting Unavailable KAFTAN, G KENNETH Attending Unavailable Denny Rodríguez MD Primary Care Provider STEPH KEANE Attending Unavailable STEPH KEANE Admitting Unavailable Yomaira BELTRAN Attending Unavailable KAFTAN G KENNETH Admitting Unavailable KIESHA, Nathan R Consulting Unavailable KIESHA, DO Nathan R Consulting Unavailable KIESHA, Nathan R Consulting Unavailable KIESHA, Nathan R Attending Unavailable KIESHA, Nathan R Admitting Unavailable ELSAANA LAURA DUMONT Attending Unavailable ELSA, ANA LAURA TYSON Admitting Unavailable KERLINE AUGUSTIN Attending Unavailable KIESHA, NATHAN R Referring Unavailable RODRÍGUEZ, DENNY A Primary Care Unavailable MINE DENISE Attending Unavailable KIESHA, NATHAN R Referring Unavailable RODRÍGUEZ, DENNY A Primary Care Unavailable Denny Rodríguez MD Primary Care Provider [phone] KIESHA, NATHAN R Referring Unavailable NICK, DENNY A Primary Care Unavailable MADHURI MONROY Attending Unavailable NICK DENNY A Referring Unavailable DICKSON RODRÍGUEZIAN A Primary Care Unavailable Denny Rodríguez MD Unavailable Dneny Rodríguez MD Primary Care Provider Denny Rodríguez MD Unavailable [phone] Kita ENVIRONMENTAL PROPERTY ASSESSOR, Zenobia Unavailable Keesha SHEPARD, Trista Bryant Unavailable ELICEO BELTRAN Attending Unavailable KIESHA, NATHAN Attending Unavailable KIESHA, NATHAN Attending Unavailable KIESHA, NATHAN Attending Unavailable KIESHA, NATHAN Attending Unavailable ELICEO BELTRAN Attending Unavailable KIESHA, NATHAN Attending Unavailable STEPH KEANE Attending Unavailable STEPH KEANE Attending Unavailable KIESHA, NATHAN Attending Unavailable KIESHA, NATHAN Attending Unavailable Allergies Allergy ClassificationReported Allergen(s)Allergy TypeDate of OnsetReaction(s) Facility (4 sources)No Known Medication Allergies; Translations: [No Known Medication Allergies]Propensity to adverse reactions (disorder)[facility] Medications Current Medications MedicationDrug Class(es)DatesSig (Normalized)Sig (Original)acetaminophen 325 mg / butalbital 50 mg / caffeine 40 mg oral tablet (14 sources)Barbiturate, Central Nervous System Stimulant, MethylxanthineStart: 02-19-2024 End: 42-04-5133ewph 1 tablet by mouth every six hours for headache vkcgnywpzy-kobtbjkpuyboh-teaershu 50-325-40 MG tablet Indications: Other migraine without status migrainosus, not intractable Take 1 tablet by mouth every 6 (six) hours if needed for headaches 20 tablet 02/19/2024 05/01/2025 Discontinuedatenolol 25 mg oral tablet (4 sources)beta-Adrenergic BlockerStart: 89-63-1194wlir 1 mg by mouth once daily atenolol 25 mg Tab mg tab(s), Oral, Daily, Refills(s) 0 Start Date: 02/02/21 Status: OrderedStart: 08-06-2017 End: 51-69-4451kjqf 1 tablet by mouth once dailyAtenolol 50 mg tablet Discontinued 50 MG PO Daily August 06, 2017 12:00am October 16, 2018 3 :34pmbaclofen suppository 10 mg (CPD) (8 sources)Start: 18-46-4263ncfhpeav suppository 10 mg (CPD) Indications: High- tone pelvic floor dysfunction , Chronic pelvic pain in female Unwrap and insert one suppository vaginally daily at bedtime. 30 Suppository 2 08/24/2023 Active Comment on above:Unwrap and insert one suppository vaginally daily at bedtime. Blood Glucose Monitoring Suppl (D-Care Glucometer) w/Device kit (17 sources)Start: 08-20-2025 End: 69-67-1104Tpxmc Glucose Monitoring Suppl (D-Care Glucometer) w/Device kit Indications: Gestational diabetes mellitus (GDM), antepartum, gestational diabetes method of control unspecified ([facility]) , Elevated glucose tolerance test 1 kit Daily Use four times daily to check FSBS. In the morning prior to breakfast & 1 hour after each meal for a total of 4times daily. 1 kit 08/20/2025 08/20/2026 Activecephalexin 500 mg oral capsule (6 sources)Cephalosporin AntibacterialStart: 02-14-2021 End: 81-36-2679erpw 1 capsule by mouth every twelve hoursKeflex 500 mg Cap 500 mg = 1 cap(s), Oral, q12hr, X 7 day(s), # 14 cap(s), Refills(s) 0 Start Date: 07/14/22 Stop Date: 07/21/22 Status: OrderedStart: 03-14-2019 End: 95-69-7840nrmc 1 capsule by mouth every twelve hoursCephalexin (Keflex) 500 mg capsule Discontinued 500 MG PO Q12H 14 7 March 14, 2019 12:00am August 04, 2019 8:18amcyclobenzaprine hydrochloride 5 mg oral tablet (20 sources)Muscle RelaxantStart: 12-30-2024 End: 60-25-6349ssht 1 tablet by mouth in the morning, [...] 30 tablet 12/30/2024 01/09/2025 ActiveStart: 05-01-2023 End: 68-30-9137tkrw 1 tablet by mouth at bedtime as neededcyclobenzaprine (FLEXERIL) 5 mg tablet Indications: Dysmenorrhea , Chronic pelvic pain in female Take 1 tablet by mouth at bedtime as needed. 30 tablet 1 05/01/2023 ActiveStart: 06-25-3220ytxv 1 tablet by mouth three times daily [...] hydrochloride 4 mg oral tablet (10 sources)Start: 15-12-0722mhdz 1 mg by mouth three times dailycyproheptadine 4 mg Tab mg tab(s), Oral, TID, Refills(s) 0 Start Date: 02/02/21 Status: Ordered Repeat number: 1Dasetta oral tablet (1 source)Start: 09-33-6759ryzi 1 tablet by mouth once dailyDasetta oral tablet 1 tab(s), Oral, Daily, Refill(s) 0, control/menstrual regulation Start Date: 11/23/16 Status: Ordereddocusate sodium 100 mg oral capsule (7 sources)Start: 11-30-2022 End: 59-31-9698qzln 1 capsule by mouth twice daily as needed for constipation Docusate Sodium (DSS) 100 MG capsule Take 1 capsule (100 mg) by mouth 2 times daily as needed for constipation (Vaginal Delivery) for up to 10 days. 60 capsule 0 12/01/2022 12/31/2022 ActiveStart: 07-14-2022 End: 02-58-8731zbwt 1 capsule by mouth twice dailyColace 100 mg Cap 100 mg = 1 cap(s), Oral, BID, X 10 day(s), # 20 cap(s), Refills(s) 0 Start Date: 07/14/22 Stop Date: 07/24/22 Status: Orderedelagolix 150 mg oral tablet (13 sources)Start: 07-16-2023 End: 99-36-5448jnys 1 tablet by mouth once dailyelagolix (ORILISSA) 150 mg tablet Take 1 tablet (150 mg) by mouth once daily. 30 tablet 11 07/16/2023 07/15/2024 ActiveStart: 74-19-6022nhgv 1 tablet by mouth twice dailyOrilissa 200 MG Oral Tablet take 1 tablet by mouth twice a day Quantity: 60 Refills: 4 Ordered: 09-Feb-2022 Charlene Rodriguez DO Start : 09-Feb-2022 ActiveComment on above:Take 1 tablet (150 mg) by mouth once daily.ergocalciferol 0.05 mg oral capsule (1 source)Provitamin D2 CompoundStart: 44-32-2520Irstqcg D2 2000 intl units oral capsule Oral, Daily, Refills(s) 0 Start Date: 02/02/21 Status: OrderedEthinyl Estradiol / Levonorgestrel (8 sources)Progestin, Estrogen, Progestin-containing Intrauterine DeviceStart: 04-03-2024 End: 94-05-0961wsshvhtpjxupew-ethinyl estradiol (Jolessa) 0.15-0.03 MG tablet Indications: Uses control TAKE1 TABLET BY MOUTH EVERY MORNING 91 tablet 3 04/03/2024 08/18/2024 Discontinued (Other)Start: 92-69-4203yrcccptvixbxav- ethinyl estradiol (Jolessa) 0.15-0.03 MG tablet Indications: Uses control TAKE1 TABLET BY MOUTH EVERY MORNING 91 tablet 3 04/03/2024 ActiveStart: 01-10-2024 End: 08-76-7199xphs 1 tablet by mouth in the morning, then take 1 tablet by mouth once dailylevonorgestrel-ethinyl estradiol (Jolessa) 0.15-0.03 MG tablet Indications: Uses control Take1 tablet by mouth in the morning. Take 1 tablet by mouth daily. 90 tablet 0 01/10/2024 04/09/2024 Activeethinyl estradiol 0.035 mg / norgestimate 0.25 mg oral tablet (4 sources)Progestin, EstrogenStart: 99-88-2038dfvyplmalfiv-ethinyl estradiol (Ortho-Cyclen) 0.25-35 MG-MCG tablet 1 (one) time each day at the same time. 0 01/15/2023 ActiveStart: 70-65-3443igys 1 tablet by mouth once dailyNorgestimate- Ethinyl Estradiol 0.25-35 mg-mcg tablet Active 1 TAB PO Daily August 04, 2019 12:00amMono-Linyah 0.25-35 MG-MCG Oral for 28 Not-TakinghydrOXYzine hydrochloride 25 mg oral tablet (10 sources)AntihistamineStart: 66-93-5238asfg 1 mg by mouth four times daily hydrOXYzine hydrochloride 25 mg Tab mg tab(s), Oral, QID, Refills(s) 0 Start Date: 02/02/21 Status: Ordered Repeat number: 1hyoscyamine sulfate 0.125 mg oral tablet (10 sources)Start: 07-57-3005igvt 1 tablet by mouth every six hoursLevsin 0.125 mg SL Tab 0.125 mg = 1 tab(s), Oral, q6hr, # 20 tab(s), Refills(s) 1, Pharmacy: [facility], 161, cm, 03/10/21 11:21:00 EDT, Height/Length Dosing, 56, kg, 03/10/21 11:21:00 EDT, Weight Dosing Start Date: 03/10/21 Status: Ordered Quantity: 20.0 Unit: tab(s) Repeat number: 2ibuprofen 600 mg oral tablet (15 sources)Nonsteroidal Anti-inflammatory DrugStart: 01-23-2022 End: 06-56-6333whnx 1 tablet by mouth every six hoursibuprofen 600 mg Tab 600 mg = 1 tab(s), Oral, q6hr, # 40 tab(s), Refills(s) 0, [facility]: [facility], 157, cm, 01/23/22 7:20:00 EST, Height/Length Dosing, 55, kg, 01/23/22 7:20:00 EST, WeightDosing Start Date: 01/23/22 Status: Ordered Quantity: 40.0 Unit: tab(s) Repeat number: 1insulin glargine-yfgn (Semglee-yfgn) 100 UNIT/ML pen (5 sources)Start: 70-28-7594ylewryf glargine-yfgn (Semglee-yfgn) 100 UNIT/ML pen Inject 13 Units under the skin at bedtime 09/15/2025 Activeinsulin glargine-yfgn 100 unit/mL (3 mL) insulin pen (14 sources)Start: 77-67-7755gpooezo glargine-yfgn 100 unit/mL (3 mL) insulin pen Indications: Essential hypertension affecting in third trimester Prime with 2 units and give 5 units every morning and 23 units subQ at bedtime. 15 mL 3 09/28/2025 ActiveStart: 09-21-2025 End: 21-06-9808jazgnzv glargine-yfgn 100 unit/mL (3 mL) insulin pen Indications: Essential hypertension affecting in third trimester Prime with 2 units and give 5 units every morning and 20 units subQ at bedtime. 15 mL 3 09/21/2025 09/28/2025 DiscontinuedStart: 14-43-1541oqwfqpj glargine-yfgn 100 unit/mL (3 mL) insulin pen Indications: Essential hypertension affecting in third trimester Prime with 2 units and give 5 units every morning and 20 units subQ at bedtime. 15 mL 3 09/21/2025 ActiveStart: 09-17-2025 End: 49-61-7221yooqbwv glargine-yfgn 100 unit/mL (3 mL) insulin pen Indications: Essential hypertension affecting in third trimester Prime with 2 units and give 5 units every morning and 17 units subQ at bedtime. 15 mL 3 09/17/2025 09/21/2025 DiscontinuedStart: 27-80-9698rfhyggu glargine-yfgn 100 unit/mL (3 mL) insulin pen Indications: Essential hypertension affecting in third trimester Prime with 2 units and give 5 units every morning and 17 units subQ at bedtime. 15 mL 3 09/17/2025 ActiveStart: 09-15-2025 End: 54-39-0869ewfwumr glargine-yfgn 100 unit/mL (3 mL) insulin pen Indications: Essential hypertension affecting in third trimester Prime with 2 units and give 17 units subQ at bedtime. 15 mL 3 09/15/2025 09/17/2025 Discontinued Start: 09-50-8147xllwpxq glargine-yfgn 100 unit/mL (3 mL) insulin pen Indications: Essential hypertension affecting in third trimester Prime with 2 units and give 17 units subQ at bedtime. 15 mL 3 09/15/2025 ActiveStart: 09-10-2025 End: 99-21-9927ngekddc glargine-yfgn 100 unit/mL (3 mL) insulin pen Indications: Essential hypertension affecting in third trimester Prime with 2 units and give 13 units subQ at bedtime. 15 mL 3 09/10/2025 09/15/2025 Discontinued Start: 35-62-2020enlwobw glargine-yfgn 100 unit/mL (3 mL) insulin pen Indications: Essential hypertension affecting in third trimester Prime with 2 units and give 13 units subQ at bedtime. 15 mL 3 09/10/2025 ActiveStart: 09-04-2025 End: 01-52-7815xhyqam 2 [IU] by subcutaneous injection once, then inject 10 [IU] by subcutaneous injection at bedtimeinsulin glargine-yfgn 100 unit/mL (3 mL) insulin pen Indications: Diet controlled gestational diabetes mellitus (GDM) in second trimester , Essential hypertension affecting in third trimester Prime with 2 units and give 10 units subQ at bedtime. 15 mL 3 09/04/2025 09/10/2025 DiscontinuedStart: 46-83-7605uafyxv 2 [IU] by subcutaneous injection once, then inject 10 [IU] by subcutaneous injection at bedtimeinsulin glargine- yfgn 100 unit/mL (3 mL) insulin pen Indications: Diet controlled gestational diabetes mellitus (GDM) in second trimester , Essential hypertension affecting in third trimester Prime with 2 units and give 10 units subQ at bedtime. 15 mL 3 09/04/2025 Activeisopropyl alcohol 0.7 ml/ml medicated pad (17 sources)Start: 62-52-1429Xpocyxb Swabs (Alcohol Prep Pad) 70 % pads Indications: Gestational diabetes mellitus (GDM), antepartum, gestational diabetes method of control unspecified ([facility]) , Elevated glucose tolerance testApply 1 Pad topically Daily Use four times daily to check FSBS. 150 each 3 08/20/2025 Activeiv contrast (will be provided with radiology test) (12 sources)Start: 16-52-5188dw contrast (will be provided with radiology test) [...] 200 mg oral tablet (20 sources)beta-Adrenergic BlockerStart: 10-50-2278ffwz 1 tablet by mouth in the morninglabetalol (Normodyne) 200 MG tablet Indications: Gestational Hypertension Take 1 tablet (200 mg) bymouth in the morning and 1 tablet (200 mg) before bedtime. 60 tablet 3 09/03/2025 ActiveStart: 07-30-2025 End: 22-13-6653lwfz 1 tablet by mouth in the morninglabetalol (Normodyne) 100 MG tablet Indications: Hypertension, unspecified type Take 1 tablet (100 mg) by mouth in the morning and 1 tablet (100 mg) before bedtime. 60 tablet 5 07/30/2025 09/03/2025 DiscontinuedStart: 11-28-2022 End: 33-33-2961bozyogxzn (Normodyne,Trandate) injection 20 mgStart: 11-28-2022 End: 03-62-4398ljhvswaqa (Normodyne,Trandate) injection 20 mgStart: 11-28-2022 End: 12-41-1165dzqgatabo (Normodyne,Trandate) 5 MG/ML injection - Pyxis ADS Override Pulltake 2 tablets by mouth three times dailylabetaloL (NORMODYNE) 100 mg tablet Take 2 tablets (200 mg total) by mouth 3 (three) times a day. Active magnesium oxide 400 mg oral tablet (9 sources)Start: 05-01-2025 End: 36-79-7595cfcz 1 tablet by mouth once dailymagnesium oxide (Mag-Ox) 400 MG tablet Indications: headache in first trimester ([facility]-HCC)Take 1 tablet (400 mg) by mouth Daily 30 tablet 3 05/01/2025 05/31/2025 Activemeloxicam 15 mg oral tablet (15 sources)Nonsteroidal Anti-inflammatory DrugStart: 02-02-2021 End: 15-68-3767mjcn 1 tablet by mouth once dailymeloxicam (Mobic) 15 MG tablet Indications: Chronic right shoulder pain , Scapular dyskinesis Take 1 tablet (15 mg) by mouth Daily 30 tablet 3 12/30/2024 05/01/2025 Veyhdrtexmno87 hr metoprolol succinate 25 mg extended release oral tablet (20 sources)beta-Adrenergic BlockerStart: 10-15-2024 End: 40-02-1727knyl 1 tablet by mouth once dailymetoprolol succinate XL (Toprol- XL) 25 MG 24 hr tablet Indications: Hypertension, unspecified type Take 1 tablet by mouth daily 90 tablet 1 12/30/2024 ActiveStart: 15-78-9915bgzo 1 tablet by mouth once dailymetoprolol succinate XL (Toprol-XL) 25 MG 24 hr tablet Indications: Hypertension, unspecified type (CMS/HCC) Take 1 tablet by mouth daily 90 tablet 1 04/23/2024 ActiveStart: 78-79-4700oywj 1 tablet by mouth once dailymetoprolol succinate XL (Toprol-XL) 25 MG 24 hr tablet Indications: Hypertension, unspecified type (CMS/HCC) Take 1 tablet by mouth daily 90 tablet 1 10/23/2023 ActiveStart: 02-27-2023 End: 23-76-9360wcodprgpfk succinate ER (TOPROL XL) 25 mg 24 hr tabletnaproxen 500 mg delayed release oral tablet (20 sources)Nonsteroidal Anti-inflammatory DrugStart: 85-58-3935vwzm 1 tablet by mouth twice dailynaproxen 500 mg oral enteric coated tablet 500 mg = 1 tab(s), Oral, BID, # 28 tab(s), Refills(s) 0 Start Date: 11/07/21 Status: Ordered Quantity: 28.0 Unit: tab(s) Repeat number: 1Start: 03-04-2021 End: 54-71-4719qqso 1 tablet by mouth twice dailynaproxen 500 mg Tab 500 mg = 1 tab(s), Oral, BID, Take one tab by mouth two times a day, # 14 tab(s), Refills(s) 0, Pharmacy: [facility], 157, cm, 03/04/21 7:22:00 EDT, Height/Length Dosing,52, kg, 03/04/21 7:22:00 EDT, Weight Dosing Start Date: 03/04/21 Status: Ordered Quantity: 14.0 Unit:tab(s) Repeat number: 1Start: 11-02-2018 End: 59-83-0331oost 1 tablet by mouth twice daily as [...] (5 sources)Dihydropyridine Calcium Channel BlockerStart: 11-28-2022 End: 09-23-2346HMPSikeltg XL (Procardia XL) 30 MG 24 hr tablet Take 1 tablet (30 mg) by mouth daily. Do not crush,chew, or split. Do not start before December 02, 2022. 90 tablet 0 12/02/2022 12/02/2023 Activenorethindrone acetate 5 mg oral tablet (20 sources)Start: 05-17-2023 End: 08-43-0260wzzl 2 tablets by mouth once dailynorethindrone (AYGESTIN) 5 mg tablet Take 2 tablets by mouth once daily. 60 tablet 5 01/03/2024 07/01/2024 ActiveStart: 04-11-2023 End: 62-76-1526joev 1 tablet by mouth once dailynorethindrone (AYGESTIN) 5 mg tablet Take 1 tablet by mouth once daily. 30 tablet 11 04/11/2023 ActiveStart: 61-26-9894tlce 1 tablet by mouth once dailyNorethindrone Acetate [...] mg/ml rectal foam (2 sources)Start: 07-14-2022 End: 82-19-1544puvh 15 g rectal route twice dailyProctoFoam 1% Foam apply, Rectal, BID for 7 day(s), 15 gm, Refill(s) 0 Start Date: 07/14/22 Stop Date: 07/21/22 Status: OrderedPrenatal Multivitamins with Vitamin B Complex, Vitamin C, Minerals and L-Methylfolate oral capsule (9 sources)Start: 96-87-7318Jqwixtco Multivitamins with Vitamin B Complex, Vitamin C, Minerals and L-Methylfolate oral capsule 1 cap(s), Oral, Daily, 30 cap(s), Refill(s) 0 Start Date: 07/14/22 Status: Ordered Quantity: 30.0 Unit: cap(s) Repeat number: 1Start: 63-13-5116Thfedtyf Multivitamins with Vitamin B Complex, Vitamin C, Minerals and L-Methylfolate oral capsule 1 cap(s), Oral, Daily, 30 cap(s), Refill(s) 0 Start Date: 07/14/22 Status: OrderedPrenatal Vit-Fe Fumarate-FA ( Vitamin) 27-0.8 MG tablet (3 sources) Vit-Fe Fumarate-FA ( Vitamin) 27-0.8 MG tablet Take by mouth. 0 ActivePrenatal Vit-Fe Fumarate-FA ( Vitamins) 28-0.8 MG tablet (20 sources)Start: 05-01-2025 End: 12-85-1156rsbo 1 tablet by mouth once dailyPrenatal Vit-Fe Fumarate-FA ( Vitamins) 28-0.8 MG tablet Indications: , unspecified gestational age ([facility]) , Encounter for supervision of normal first in first trimester([facility]) Take 1 tablet by mouth Daily 30 tablet 11 05/01/2025 05/01/2026 ActiveStart: 05-01-2025 End: 92-58-9437uiqi 1 tablet by mouth once dailyPrenatal Vit-Fe Fumarate-FA ( Vitamins) 28-0.8 MG tablet Indications: , unspecified gestational age , Encounter for supervision of normal first in first trimester Take 1 tablet by mouth Daily 30 tablet 11 05/01/2025 05/01/2026 Active SUMAtriptan 100 mg oral tablet (10 sources)Serotonin-1b and Serotonin-1d Receptor AgonistStart: 80-15-2419eekv 1 mg by mouth onceImitrex 100 mg Tab mg tab(s), Oral, Once, Refills(s) 0 Start Date: 02/02/21 Status: Ordered Repeat number: 1Surgical Lubricant Jelly gel (12 sources)Start: 18-88-5186Fvgmlaxv Lubricant Jelly gel For MRI Female Pelvis, MRI department to provide. Administer intra-vaginal Surgilube immediately prior the MRI procedure (total amount to patient toleranace). 1 g 0 05/17/2023 Active Comment on above:For MRI Female Pelvis, MRI department to provide. Administer intra-vaginal Surgilube immediately prior the MRI procedure (total amount to patient toleranace).tiZANidine 4 mg oral tablet (3 sources)Central alpha-2 Adrenergic AgonistStart: 81-36-6139fhye 1 mg by mouth every eight hourstiZANidine 4 mg Tab mg tab(s), Oral, q8hr, Refills(s) 0 Start Date: 02/02/21 Status: OrderedtraMADol hydrochloride 50 mg oral tablet (10 sources)Opioid AgonistStart: 21-29-2769nzbl 1 tablet by mouth every four hours as needed for paintraMADol (ULTRAM) 50 mg tablet Indications: Pelvic pain in female Take 1 tablet by mouth every 4 hours as needed for pain. 20 tablet 0 08/30/2023 ActiveStart: 28-05-1636jcbf 1 tablet by mouth every six hourstraMADol HCl - 50 MG Oral Tablet TAKE 1 TABLET Every 6 hours Quantity: 20 Refills: 0 Ordered: 18-Aug-2020 Charlene Rodriguez DO Start : 18-Aug-2020 ActiveStart: 03-12-2019 End: 10-53-8867uiik 1 tablet by mouth every four hours as needed for pain Tramadol 50 mg tablet Discontinued 50 MG PO Q4H as needed for pain 30 5 March 12, 2019 12:00am August 04, 2019 8:19amComment on above:Take 1 tablet by mouth every 4 hours as needed for pain.Vitamin D2 2000 intl units oral capsule (9 sources)Start: 72-80-9499gqfa 1 capsule by mouth once dailyVitamin D2 2000 intl units oral capsule Oral, Daily, Refills(s) 0 Start Date: 02/02/21 Status: Ordered Repeat number: 1Start: 40-74-9018Baencgv D2 2000 intl units oral capsule Oral, Daily, Refills(s) 0 Start Date: 02/02/21 Status: Ordered Completed/Discontinued Medications MedicationDrug Class(es)DatesSig (Normalized)Sig (Original)acetaminophen 325 mg oral tablet (4 sources)Start: 11-30-2022 End: 90-20-8876qxeo 1 tablet by mouth every six hours as needed for pcrt353 mg, Oral, Every 6 hours PRN, mild pain (1-3), Starting on Constance 11/30/22 at 0422 Give in addition to any other pain medication ordered at same time for any pain indication. Maximumdose of acetaminophen is 4000 mg from all sources in 24 hours. Alternate ibuprofen and acetaminophen every 3 hours.Start: 11-28-2022 End: 31-18-5549rncovfzadfxdp (Tylenol) tablet 1,000 mgacetaminophen 300 mg / codeine phosphate 30 mg oral tablet (4 sources)Opioid AgonistStart: 01-19-2025 End: 77-56-0802wsls 1 tablet by mouth every six hours for painacetaminophen- codeine (Tylenol w/ Codeine #3) 300-30 MG tablet Indications: Pain in female genitalia on intercourse , Endometriosis Take 1 tablet by mouth every 6 (six) hours if needed for severe pain for up to 5 days 20 tablet 01/19/2025 01/24/2025 ExpiredStart: 07-22-2024 End: 69-00-6722gkoa 1 tablet by mouth every six hours for painacetaminophen- codeine (Tylenol w/ Codeine #3) 300-30 MG tablet Indications: Dysmenorrhea, unspecified Take 1 tablet by mouth every 6 (six) hours if needed for severe pain for up to 5 days 20 tablet 07/22/2024 07/27/2024 Activeascorbic acid 500 mg oral tablet (5 sources)Vitamin CStart: 10-25-2018 End: 34-92-6474keng 2 tablets by mouth in the morningASCORBIC ACID WITH ISAURO HIPS 500 MG tablet Take 2 tablets (1,000 mg total) by mouth in the morning.0 10/25/2018 09/04/2025 Discontinued ()aspirin 325 mg / butalbital 50 mg / caffeine 40 mg oral capsule (11 sources)Platelet Aggregation Inhibitor, Barbiturate, Nonsteroidal Anti- inflammatory Drug, Central Nervous System Stimulant, Methylxanthine End: 19-32-7853xdiv 1 capsule by mouth every four hours as needed rkslekslvm-tgilrld-zpqrenyo (Fiorinal) 50-325-40 MG capsule Take 1 capsule [...] spray (2 sources)Standardized Chemical AllergenStart: 11-30-2022 End: 75-87-2265Gkiquan, As needed, pain, , Starting on Constance 11/30/22 at 0608, Apply to perineal area. Patient is capable and may self administer at bedside.betamethasone 3 mg/ml / betamethasone acetate 3 mg/ml injectable suspension (2 sources)CorticosteroidStart: 11-28-2022 End: 28-13-6751nxfptgpgbkfwu acetate-betamethasone sodium phosphate (Celestone) injection 12 mgcalcium chloride 0.0014 meq/ml / potassium chloride 0.004 meq/ml / sodium chloride 0.103 meq/ml / sodium lactate 0.028 meq/ml injectable solution (2 sources)Start: 11-28-2022 End: 47-90-0123jesy 125 mL intravenously every hdeg927 mL/hr, IntraVENous, Continuous, Starting on Sun11/28/22 at 0100, Pre-Deliverycetirizine hydrochloride 10 mg oral tablet (17 sources)Histamine-1 Receptor AntagonistStart: 06-09-2025 End: 99-61-2562gchb 1 tablet by mouth once dailycetirizine (ZyrTEC ALLERGY) 10 MG tablet Indications: Allergy, sequela Take 1 tablet (10 mg) by mouth Daily 30 tablet 11 06/09/2025 07/15/2025 DiscontinuedchlordiazePOXIDE hydrochloride 5 mg / clidinium bromide 2.5 mg oral capsule (1 source)Anticholinergic, BenzodiazepineStart: 03-40-4896fulv 1 capsule by mouth every eight hourschlordiazePOXIDE-Clidinium 5-2.5 MG 1 capsule before meals Orally Three times a day for 30 day(s) May, Not-Taking chlorhexidine gluconate 20 mg/ml medicated pad (2 sources)Start: 11-28-2022 End: 61-35-6930svfgu 1 dose topically every six hoursTopical, Every 6 hours, First dose on Sun11/28/22 at 0100, Pre-Delivery Apply to the affected area.&a mp;nbsp; Clean entire abdomen.cholecalciferol 0.125 mg oral capsule (5 sources)Vitamin DStart: 10-25-2018 End: 43-42-0668qyss 1 capsule by mouth in the morningcholecalciferol, vitamin D3, (VITAMIN D3) 5,000 units capsule Take 1 capsule (5,000 Units total) bymouth in the morning. 0 10/25/2018 09/04/2025 Discontinued ()desogestrel 0.15 mg / ethinyl estradiol 0.03 mg oral tablet (11 sources)Progestin, EstrogenStart: 07-22-2024 End: 48-60-1344jdzkujabiyt-ethinyl estradiol (Apri) 0.15-30 MG-MCG tablet Indications: Dysmenorrhea, unspecified Take 1 tablet by mouth Daily 21 tablet 12 10/20/2024 01/19/2025 Discontinued (Other)diphenhydrAMINE (BENADryl) injection 25 mg (2 sources)Start: 11-30-2022 End: 41-13-4415avzk 25 mg intravenously every six hours as neededdiphenhydrAMINE (BENADryl) injection 25 mgNorethindrone-E.Estradiol-Iron (1 source)EstrogenStart: 10-17-2017 End: 33-31-9416pizk 1 tablet by mouth once dailyNorethindrone-E.Estradiol-Iron (Lo Loestrin Fe) 1 mg-10 mcg (24)/10 mcg (2) tablet Discontinued 1 TAB PO Daily October 17, 2017 1:00am March 12, 2019 6:15amEthinyl Estradiol / Norethindrone (7 sources)EstrogenStart: 12-01-2018 End: 33-83-5518kjmr 0.05 ug by mouth once in the eveningnorethindrone ac-eth estradiol (MICROGESTIN 1/20) 1-20 mg-mcg per tablet Take 1 tablet by mouth in t he evening. 0 12/01/2018 09/04/2025 Discontinued ()Start: 12-01-2018 take 0.05 ug by mouth once in the eveningnorethindrone ac-eth estradiol (MICROGESTIN 1/20) 1-20 mg-mcg per tablet Take 1 tablet by mouth in the evening. 0 12/01/2018 ActiveStart: 35-56-5015bvme 1 tablet by mouth once dailyDasetta oral tablet 1 tab(s), Oral, Daily, Refill(s) 0, control/menstrual regulation Start Date: 11/23/16 Status: Orderedfamotidine 20 mg oral tablet (2 sources)Histamine-2 Receptor AntagonistStart: 11-30-2022 End: 58-06-8810zvit 20 mg by mouth twice daily as needed for gastroesophageal reflux xoboexj79 mg, Oral, 2 times daily PRN, heartburn, Starting on Sun11/30/22 at 0608, Renal dose per pharmacy for peptic ulcer prophylaxis.ferrous sulfate 325 mg oral tablet (8 sources)Start: 11-30-2022 End: 04-04-0113wdzx 325 mg by mouth twice daily at mazazrel288 mg, Oral, 2 times daily with meals, First dose on Sun23 at 0800, Start if Hgb le ss than 10. End: 48-07-7255exvf 1 tablet by mouth in the morningFerrous Sulfate (IRON PO) Take 1 tablet by mouth in the morning. 09/16/2025 Discontinuedtake 1 tablet by mouth in the morningFerrous Sulfate (IRON PO) Take 1 tablet by mouth in the morning. ActiveFLUoxetine 20 mg oral capsule (17 sources)Serotonin Reuptake InhibitorStart: 39-47-9875miiv 1 capsule by mouth once dailyFLUoxetine HCl - 20 MG Oral Capsule TAKE 1 CAPSULE Daily Quantity: 30 Refills: 11 Ordered: 02-Jun-2021 Charlene Rodriguez DO Start : 02-Jun-2021 Active Start: 11-02-2018 End: 40-13-0092ufnm 1 capsule by mouth once dailyFluoxetine (Prozac) 20 mg capsule Discontinued 20 MG PO Daily November 02, 2018 1:00am August 04, 2019 8:19amtake 1 capsule by mouth once dailyFLUoxetine (PROZAC) 10 mg capsule Take 10 mg by mouth once daily. 0 ActiveComment on above:Take 10 mg by mouth once daily.fluticasone propionate 0.05 mg/actuat metered dose nasal spray (16 sources)CorticosteroidStart: 06-22-2025 End: 08-01-9350yqdz 1 spray(s) nasal route once dailyfluticasone (Flonase) 50 MCG/ACT nasal spray Indications: Sinusitis, unspecified chronicity, unspecified location Administer 1 spray into each nostril Daily Shake gently. Before first use, prime pump. After use, clean tip and replace cap. 16 g 12 06/22/2025 07/15/2025 Discontinued End: 13-31-8982wmln 1 spray(s) nasal route in the morningfluticasone (Flonase) 50 MCG/ACT nasal spray Administer 1 spray into affected nostril(s) in the morn ing. 09/16/2025 Discontinued End: 47-49-6448pzcj 1 spray(s) nasal route in the morningfluticasone propionate (FLONASE) 50 mcg/actuation nasal spray Administer 1 spray into each nostril in the morning. 09/04/2025 Discontinued ()lanolin 1000 mg/ml topical cream (2 sources)Start: 11-30-2022 End: 17-62-2071Lyjjqev, As needed, dry skin, nipple discomfort, Starting on Sun11/30/22 at 0608, Apply to affected area.500 ml magnesium sulfate 40 mg/ml injection (4 sources)Start: 11-28-2022 End: 79-87-2322gcytsxfxp sulfate 20 GM/500ML infusionStart: 11-28-2022 End: 19-32-6282kovghvsrj sulfate 20 GM/500ML infusion - Pyxis ADS Override Pull metoclopramide 10 mg oral tablet (2 sources)Dopamine-2 Receptor AntagonistStart: 76-88-4437jjox 1 tablet by mouth every eight hoursReglan 10 MG 1 tablet before meals Orally tid for 30 day(s) March, Not-TakingmiSOPROStol 0.2 mg oral tablet (2 sources)Prostaglandin E1 AnalogStart: 11-30-2022 End: 11-45-4979bsLVDGLOxbv (Cytotec) tablet 1,000 mcgStart: 11-30-2022 End: 38-32-4928osGPBABCoyw (Cytotec) tablet 1,000 mcgmiSOPROStol (Cytotec) split tablet 25 mcg (2 sources)Start: 11-28-2022 End: 44-80-5535hrwa 1 tablet vaginal route every four hoursmiSOPROStol (Cytotec) split tablet 25 mcg1 ml morphine sulfate 4 mg/ml injection (4 sources)Opioid AgonistStart: 11-28-2022 End: 46-44-6352nfdhwxus sulfate (PF) injection 4 mgnitrofurantoin, macrocrystals 25 mg / nitrofurantoin, monohydrate 75 mg oral capsule (6 sources)Nitrofuran AntibacterialStart: 08-74-1127Iumowtacjksswi Monohyd Macro 100 MG Oral Capsule TAKE 1 CAPSULE Other Please take one capsule aftersexual intercourse to prevent UTI Quantity: 30 Refills: 11 Ordered: 01-Apr-2021 Teri Chau MD Start : 01-Apr-2021 Active2 ml ondansetron 2 mg/ml injection (12 sources)Serotonin-3 Receptor AntagonistStart: 11-29-2022 End: 27-28-6161lfjt 4 mg intravenously every six hours as needed for nausea and vomitingondansetron (Zofran) injection 4 mgStart: 14-61-3778qkmq 1 tablet by mouth every six hours as needed for nauseaZofran 4 mg Tab 1 tab(s), Oral, q6hr, PRN Nausea, # 8, Refills(s) 0 Start Date: 07/14/22 Status: Ordered Quantity: 8.0 Unit: Repeat number: 1Start: 76-46-5472byde 1 tablet by mouth three times daily Zofran 4 MG 1 tablet Orally THREE TIMES A DAY for 30 day(s) May, Not-Takingondansetron ODT (Zofran-ODT) disintegrating tablet 4 mg (2 sources)Start: 11-30-2022 End: 06-43-0157bfhs 1 tablet by mouth every eight hours [...] for 1 hour. Then discontinue.Start: 11-29-2022 End: 30-35-8413vnsucxnt (Pitocin) 30 units in 500 mL infusionStart: 11-29-2022 End: 86-64-0901mlulnfxc (Pitocin) 30 units in 500 mL infusionphenazopyridine hydrochloride 200 mg oral tablet (10 sources)Start: 10-58-0264sbdj 1 tablet by mouth three times dailyPyridium 200 mg Tab 200 mg = 1 tab(s), Oral, TID, Take one tab by mouth three times a day for threedays, # 9 tab(s), Refills(s) 0, Pharmacy: [facility] 858, 157, cm, 03/04/21 7:22:00 EDT, Height/Length Dosing, 52, kg, 03/04/21 7:22:00 EDT, Weight Dosing Start Date: 03/04/21 Status: Ordered Quantity: 9.0 Unit: tab(s) Repeat number: 1predniSONE 10 mg oral tablet (3 sources)Start: 09-10-2023 End: 57-46-8223enls 2 tablets by mouth twice daily, then [...] 09/10/2023 01/10/2024 Discontinued (Therapy completed)Start: 03-12-2019 End: 68-44-7217cmsh 3 tablets by mouth once daily at mealtimePrednisone 20 mg tablet Discontinued 60 MG PO Daily 9 March 12, 2019 12:00am August 04, 2019 8:18am administer with food or milkpromethazine hydrochloride 12.5 mg oral tablet (13 sources)PhenothiazineStart: 05-25-2025 End: 29-82-7010gzsz 1 tablet by mouth every six hours [...] nausea. 30 tablet 2 508/ Discontinued End: 18-54-1865oyud 12.5 mg rectal route every six hours as needed for nausea and vomitingpromethazine (PHENERGAN) 12.5 mg suppository Insert 1 suppository (12.5 mg total) into the rectum every 6 (six) hours as needed for nausea or vomiting. 09/04/2025 Discontinued ()rizatriptan 5 mg disintegrating oral tablet (5 sources)Serotonin-1b and Serotonin-1d Receptor AgonistStart: 10-24-2018 End: 84-18-9783uxegigkmjuw CLOTHING CUTTER (MAXALT-CLOTHING CUTTER) 5 mg disintegrating tablet Dissolve 1 tablet (5 mg total) on tongue asneeded. 0 10/24/2018 09/04/2025 Discontinued ()5 ml sodium chloride 9 mg/ml injection (2 sources)Start: 11-28-2022 End: mL, IntraVENous, Every 12 hours scheduled (2 times per day), First dose on Sun11/28/22 at 0900, Pre-Deliveryvitamin b12 1 mg extended release oral tablet (5 sources)Vitamin P42Tiega: 10-25-2018 End: 32-12-3103nsgz 1 tablet by mouth in the morningcyanocobalamin, vitamin B- 12, (VITAMIN B-12) 1,000 mcg tablet extended release Take 1 tablet (1 mg total) by mouth in the morning. 0 10/25/2018 09/04/2025 Discontinued ()witch yesi 500 mg/ml medicated pad (2 sources)Start: 11-30-2022 End: 93-51-4358Wlbffdu, As needed, hemorrhoids, For perineal pain or discomfort, Starting on Sun11/30/22 at 0608, Apply to perineal area. Patient is capable and may self administer at bedside. Problems Active Problems Problem ClassificationProblemDateDocumented DateEpisodic/ChronicAllergic reactions (1 source)Allergic reaction; Translations: [Allergy, unspecified, initial encounter]04-46-9308KszsbfnzNcbhizp on above:Problem List clean-up per request of Phys. EHR CmteAnxiety disorders (20 sources)Anxiety; Translations: [Anxiety state, unspecified]Onset: 10-08-2020 39-31-0077NfaofklXqnwarj on above:Problem List clean-up per request of Phys. EHR CmteCardiac dysrhythmias (20 sources)Paroxysmal tachycardia; Translations: [Paroxysmal tachycardia, unspecified]Onset: 399759-76-3407OeomjqlEspzxwrkscbza of surgical procedures or medical care (1 source)Postoperative retention of urine; Translations: [Other postprocedural complications and disorders of genitourinary system]18-04-3376FatgrxxzVtleyii on above:Problem List clean-up per request of Phys. EHR CmteDiabetes mellitus without complication (2 sources)Abnormal glucose tolerance test; Translations: [Other abnormal glucose]28-31-4232FfpainikOvgypggj or abnormal glucose tolerance complicating ; childbirth; or the puerperium (20 sources)Gestational diabetes mellitus; Translations: [Gestational diabetes mellitus in , diet controlled]Onset: 935318-16-9640Wwsldnoo Endometriosis (20 sources)Endometriosis (clinical); Translations: [Endometriosis, site unspecified]Onset: 31-27-5201MmpvakgCydryvndh hypertension (20 sources)Hypertensive disorder; Translations: [Essential (primary) hypertension]Onset: 375422-39-0595RazfzdrVpyfhspmiiivg symptoms and ill- defined conditions (20 sources)Microscopic hematuria; Translations: [Nocturia]36-77-4393Kqhxwmlj Comment on above:Problem List clean-up per request of Phys. EHR CmteHeadache; including migraine (20 sources)Migraine; Translations: [Migraine, unspecified, not intractable, without status migrainosus]Onset: 700368-26-2464VmmdzgbYrbhrkw on above: Problem List clean-up per request of Phys. EHR CmteHeadache; including migraine (14 sources)Headache; Translations: [Headache, unspecified]Onset: 01-31-2023 04-61-0406JsqnwwlxFhfjbeljkub (1 source)Hemorrhoids; Translations: [Unspecified hemorrhoids]Onset: 07-14-2022 EpisodicHypertension complicating ; childbirth and the puerperium (20 sources)Hypertension complicating ; Translations: [Unspecified maternal hypertension, unspecified trimester]Onset: hronic Hypertension complicating ; childbirth and the puerperium (14 sources)Severe pre-eclampsia complicating childbirth; Translations: [Severe pre-eclampsia, third trimester]Onset: 22-51-0484TjbpilywKetqa disorders and dislocations; trauma-related (20 sources)Disorder of left patellofemoral joint; Translations: [Patellofemoral disorders, left knee]Onset: 022404-81-4680SfsbzymPlyew disorders and dislocations; trauma-related (20 sources)Disorder of right patellofemoral joint; Translations: [Patellofemoral disorders, right knee]Onset: hronic Menstrual disorders (20 sources)Dysmenorrhea; Translations: [Dysmenorrhea, unspecified]Onset: 672567-14-5472LagahyvYowfdr and vomiting (1 source)Nausea and vomiting; Translations: [Nausea with vomiting, unspecified] EpisodicNonspecific chest pain (2 sources)Chest pain; Translations: [Chest pain, unspecified]04-37-7731Yuivfupl Comment on above:Problem List clean-up per request of Phys. MIKAYLA CmteNutritional deficiencies (20 sources)Vitamin D deficiency; Translations: [Vitamin D deficiency, unspecified]Onset: 322858-36-7450RplhtpjVguvg acquired deformities (20 sources)Scoliosis deformity of spine; Translations: [Scoliosis, unspecified] Onset: 728032-32-4537XgakjsuOdnud bone disease and musculoskeletal deformities (10 sources)Disorder of swiq00-08-4854LkqspanxUklewhc on above:right shoulder right shoulderOther circulatory disease (1 source)Elevated blood-pressure reading without diagnosis of hypertension; Translations: [Elevated blood-pressure reading, without diagnosis of hypertension]Onset: 39-58-3298MjxyhmvfUesro complications of ; puerperium affecting management of mother (1 source)Delayed AND/OR secondary hemorrhage; Translations: [Delayed and secondary hemorrhage]Onset: 05-54-0749IarzpiyxDbufc complications of (1 source)Finding related to ; Translations: [Other specified related conditions, unspecified trimester]Onset: 66-09-1796CwsufyiiQrzpu complications of (1 source)Supervision of with other poor reproductive or obstetric history, unspecified trimester; Translations: [Supervision of with other poor reproductive or obstetric history, unspecified trimester]Onset: 49-00-0467IbuqyvxnSexjd connective tissue disease (1 source)Diastasis recti; Translations: [Separation of muscle (nontraumatic), other site]EpisodicOther female genital disorders (10 sources)Abnormal uterine qlqxjpci96-36-0584NunndzbRrpoe female genital disorders (1 source)Dyspareunia; Translations: [Other specified dyspareunia]ChronicOther female genital disorders (20 sources)Pain in female genitalia on intercourse; Translations: [Unspecified dyspareunia]Onset: 243841-27-5985JynwzbgUoent female genital disorders (1 source)Unspecified dyspareunia; Translations: [Unspecified dyspareunia]Onset: 57-07-2546GhkyjspXqmer female genital disorders (2 sources)Pelvic floor dysfunction; Translations: [Other specified conditions associated with female genital organs and menstrual cycle]EpisodicOther gastrointestinal disorders (18 sources)Constipation; Translations: [Constipation, unspecified]Onset: 349282-45-5195JkasgaorIzkrpky on above:Problem List clean-up per request of Phys. EHR CmteOther gastrointestinal disorders (1 source)Constipation, unspecified; Translations: [Constipation, unspecified] Onset: 92-38-1041PgtqfccrWlhdq hereditary and degenerative nervous system conditions (20 sources)Finding of scapular structure; Translations: [Other specified extrapyramidal and movement disorders]Onset: 152199-74-6071KcqvfzdDbwhn nervous system disorders (9 sources)Chronic pain; Translations: [Other chronic pain]Onset: 03-29-2023 15-88-2477IvagsmcHeayq nervous system disorders (1 source)Other chronic pain; Translations: [Chronic pelvic pain in female] Onset: 69-10-9347HwaioykOyrdx nervous system disorders (1 source)Paresthesia of left upper limb; Translations: [Paresthesia of skin] 59-68-6797KlsosbhhItcenjp on above:Problem List clean-up per request of Phys. EHR CmteOther nervous system disorders (1 source)Tremor; Translations: [Tremor, unspecified]24-97-9421EjnxkrzeBjmhwgl on above:Problem List clean-up per request of Phys. EHR CmteOther nutritional; endocrine; and metabolic disorders (20 sources)Body mass index 30+ - obesity; Translations: [Obesity, unspecified] Onset: 579525-85-8838OabbqzrVfffx and delivery including normal (16 sources); Translations: [Encounter for supervision of normal , unspecified, unspecified trimester]86-81-7197LfmsjxdmYmqah screening for suspected conditions (not mental disorders or infectious disease) (8 sources)Elevated liver enzymes level; Translations: [Other specified abnormal findings of blood chemistry]Onset: 04-18-2022 Resolved: 04-32-8637UjttooeaFtziq upper respiratory disease (20 sources)Allergic rhinitis due to pollen; Translations: [Allergic rhinitis due to pollen]Onset: 953827-77-9352ZyqzzjsWqyvk upper respiratory infections (2 sources)Sinusitis; Translations: [Chronic sinusitis, unspecified]06-22-2025 ChronicResidual codes; unclassified (2 sources)Contraception ; Translations: [Other specified health status] 38-74-8265GgnrrvmxRrfdmrqq codes; unclassified (2 sources)Gestation period, 13 weeks; Translations: [13 weeks gestation of ]68-70-1533QeyxgrjcUevgglti codes; unclassified (2 sources)Gestation period, 17 weeks; Translations: [17 weeks gestation of ]60-20-8701ZkrqxmwlBxbhoibc codes; unclassified (2 sources)Gestation period, 20 weeks; Translations: [20 weeks gestation of ]13-78-1669UqqqtiyuWkewjizw codes; unclassified (2 sources)Gestation period, 24 weeks; Translations: [24 weeks gestation of ]09-90-7736WoaufrinNtblwvzs codes; unclassified (2 sources)Gestation period, 26 weeks; Translations: [26 weeks gestation of ]13-00-7999LqcledqqAcfuotvy codes; unclassified (2 sources)Gestation period, 27 weeks; Translations: [27 weeks gestation of ]54-08-1267ToymvdztDufcohta codes; unclassified (1 source)Gestation period, 28 weeks; Translations: [28 weeks gestation of ]96-00-7678HpaopwocKnfnvyjb codes; unclassified (1 source)28 weeks gestation of ; Translations: [28 weeks gestation of ]Onset: 16-48-9417DytwdnupLhpnxbsf codes; unclassified (2 sources)Gestation period, 29 weeks; Translations: [29 weeks gestation of ]05-66-2136UucokjgsYyygkesewpb; intervertebral disc disorders; other back problems (20 sources)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; Translations: [Other cervical disc displacement, unspecified cervical region] Onset: 294150-29-4363QlduivnWnvascnhavas (1 source)Gestational DiabetesOnset: 42-10-1356Qcxpwambbufp (1 source)MFM consultOnset: 38-06-4944Cgncrtv tract infections (20 sources)Recurrent urinary tract infection; Translations: [Urinary tract infection, site not specified]Onset: 651371-52-5977Grvjnyug Past or Other Problems Problem ClassificationProblemDateDocumented DateEpisodic/ChronicAbdominal pain (20 sources)Epigastric pain; Translations: [Epigastric pain]Onset: 07-14-2022 EpisodicAcquired foot deformities (20 sources)Acquired equinus deformity of foot; Translations: [Other acquired deformities of unspecified foot]Onset: 799045-16-8579XwhobpvdZgnlfvo dysrhythmias (20 sources)Tachycardia; Translations: [Tachycardia, unspecified]Onset: 879210-64-6163BygwrhwfSeiyxgqanpx deficiencies (20 sources)Cobalamin deficiency; Translations: [Deficiency of other specified B group vitamins]Onset: 689280-55-0414BikgscgwYadwy connective tissue disease (20 sources)Posterior calcaneal exostosis; Translations: [Calcaneal spur, unspecified foot]Onset: 932269-52-1480FkgqadajWahno disorders of stomach and duodenum (20 sources)Gastroparesis syndrome; Translations: [Gastroparesis]Onset: 849836-07-2415TxitqmmsUrlej female genital disorders (1 source)Other specified conditions associated with female genital organs and menstrual cycle; Translations:[High-tone pelvic floor dysfunction]Onset: 07-03-5130HeiphqtxJramy female genital disorders (19 sources)Chronic pelvic pain of female; Translations: [Chronic pelvic pain in female]Onset: 251557-32-9453YlhuoclmXiqia gastrointestinal disorders (20 sources)Swallowing painful; Translations: [Dysphagia, unspecified]Onset: 928928-91-0169SuswbzvnLskma gastrointestinal disorders (20 sources)Diarrhea; Translations: [Diarrhea, unspecified]Onset: 03-24-2025 34-33-4661UqbgbaclNhpeg non-traumatic joint disorders (20 sources)Chronic pain of right upper limb; Translations: [Pain in right shoulder]Onset: 270395-70-8010HrmfqsufKbmha nutritional; endocrine; and metabolic disorders (16 sources)Loss of appetite; Translations: [Anorexia]Onset: 05-27-2020 17-27-3462XdyjseraYwzmqew (15 sources)Vasovagal syncope; Translations: [Syncope and collapse]Onset: 145255-42-1989NoylzkfjRvgcpccqpoub (9 sources)PregnancyOnset: 07-14-2022 Resolved: 648951-55-1905COFFMKF: Highlighted row has been ruled out! Unclassified (1 source)No known active nsrlqtio46-80-9158 Results Test NameValueInterpretationReference RangeFacilityUS OB BPP W NON-STRESS on 44-61-27[place]xf[place], [place] [address] Ultrasound Report Signed Patient: JUHI GAMA MR#: [id number] : 1995 Acct:[id number] Age/Sex: 30 / F ADM Date: 09/26/25 Loc: US Attending Dr: Steph Keane Ordering Physician: Steph Keane Date of Service: 09/26/25 Procedure(s): US OB BPP w non-stress Accession Number(s): [id number] cc: Steph Keane; Yomaira BELTRAN [address] [address] Patient Name: JUHI GAMA MRN: [facility]:[id number] date: 1995 Sex: F Assigned Patient Location: US Current Patient Location: Accession/Order Number: [id number] Exam Date: 09/26/2025 11:50 Report Date: 09/26/2025 14:50 At the request of: STEPH KEANE Procedure: US OB BPP w non-stress Ultrasound biophysical profile INDICATION: -induced hypertension COMPARISON: 09/19/2025 FINDINGS IMPRESSION: Cephalic position. 8 out of 8 score biophysical profile. LEONEL 11.6 cm. heart 129 bpm Impression dictated by: Chu Amaya M.D. 09/26/2025 2:50 PM Dictation Location: [place] [address] Electronically authenticated by: [id number] Y Date: 09/26/2025 14:50 Dictated By: Chu Amaya M.D. Signed By: 09/26/25 1452 DD/ 1450 TD/TT: System Auditor:TBHRadiology, Radiologist, - 09/26/2025 [place] [address] Ultrasound Report Signed Patient: JUHI GAMA MR#: [id number] : 1995 Acct:[id number] Age/Sex: 30 / F ADM Date: 09/26/25 Loc: US Attending Dr: Steph Keane Ordering Physician: Steph Keane Date of Service: 09/26/25 Procedure(s): US OB BPP w non-stress Accession Number(s): [id number] cc: Steph Keane; Yomaira BELTRAN [place] [address] Patient Name: JUHI GAMA MRN: [facility]:[id number] date: 1995 Sex: F Assigned Patient Location: US Current Patient Location: Accession/Order Number: [id number] Exam Date: 09/26/2025 11:50 Report Date: 09/26/2025 14:50 At the request of: STEPH KEANE Procedure: US OB BPP w non-stress Ultrasound biophysical profile INDICATION: -induced hypertension COMPARISON: 09/19/2025 FINDINGS IMPRESSION: Cephalic position. 8 out of 8 score biophysical profile. LEONEL 11.6 cm. heart 129 bpm Impression dictated by: Chu Amaya M.D. 09/26/2025 2:50 PM Dictation Location: [place] [id number] Electronically authenticated by: [id number] Y Date: 09/26/2025 14:50 Dictated By: Chu Amaya M.D. Signed By: 09/26/251451 DD/ 49 TD/TT: System Auditor: NOMShalonda HealthcareRadiology Study observation (narrative)NOMS HealthcareUS OB BPP W NON-STRESSOrdered By: Radiologist Radiology on 70-03-3635[facility] Work Phone: US OB BPP W NON-STRESSon 69-79-[place]115[place], [place] [address] Ultrasound Report Signed Patient: JUHI GAMA MR#: [id number] : 1995 Acct:[id number] Age/Sex: 30 / F ADM Date: 09/19/25 Loc: US Attending Dr: Steph Keane Ordering Physician: Steph Keane Date of Service: 09/19/25 Procedure(s): US OB BPP w non-stress Accession Number(s): [id number] cc: Steph Keane; Yomaira BELTRAN [place] [id number] Patient Name: JUHI GAMA MRN: [facility]:[id number] date: 1995 Sex: F Assigned Patient Location: [facility] Current Patient Location: Accession/Order Number: [id number] Exam Date: 09/19/2025 10:06 Report Date: 09/19/2025 [...] Morillo M.D. 09/19/2025 12:17 PM Dictation Location: [place] [address] Electronically authenticated by: [id number] Y Date: 09/19/2025 12:17 Dictated By: Jp Morillo D.O. Signed By: 09/19/25 1219 DD/ 1217 TD/TT: System Auditor:ANTHONYHRadiology, Radiologist, - 09/19/2025 [place] [address] Ultrasound Report Signed Patient: JUHI GAMA MR#: [id number] : 1995 Acct:[id number] Age/Sex: 30 / F ADM Date: 09/19/25 Loc: US Attending Dr: Steph Keane Ordering Physician: Steph Keane Date of Service: 09/19/25 Procedure(s): US OB BPP w non-stress Accession Number(s): [id number] cc: Steph Keane; Yomaira BELTRAN [place] [address] Patient Name: JUHI GAMA MRN: [facility]:[id number] date: 1995 Sex: F Assigned Patient Location: [facility] Current Patient Location: Accession/Order Number: [id number] Exam Date: 09/19/2025 10:06 Report Date: 09/19/2025 [...] Morillo M.D. 09/19/2025 12:17 PM Dictation Location: [place] [address] Electronically authenticated by: [id number] Y Date: 09/19/2025 12:17 Dictated By: Jp Morillo D.O. Signed By: 09/19/25 1219 DD/ 1217 TD/TT: System Auditor: [facility] HealthcareRadiology Study observation (narrative)NOMS HealthcareUS OB BPP W NON-STRESSOrdered By: Radiologist Radiology on 24-45-3154OHWNSaint [facility] Work Phone: Urinalysis macro (dipstick) panel (U)on 09-16-2025 Bilirubin, UANegativeNegative - 4(70) +++ mg/dLNOMS HealthcareBlood, UANegative Negative - 50 Teodoro/mcLNOMS HealthcareClarity, UAClearNOMS HealthcareColor, UA YellowNOMS HealthcareGlucose, UANegativeNegative - 2000(110) ++++ mg/dLNONY HealthcareInterpretation and review of laboratory resultsNormalNOCox Branson Ketones, UANegativeNegative - 160(16) ++++ mg/dLNONY HealthcareLeukocytes, UA NegativeNegative - 500+++ Robinson/mcLNONY HealthcareNitrite, UANegativeNegative - PositiveNONY HealthcarepH, UA6.05 - 9NOMS HealthcareProtein, UANegativeNegative - 2000(20) ++++ mg/dLNONY HealthcareSpec Grav, UA1.0101 - 1.03NONY Healthcare Urobilinogen, UA1.00.2 - 12 mg/dLNOCox BransonNONY HealthcareALL BUNon 76-47-3877Cbtv nitrogen [Mass/Vol]8 mg/dL7.0 - 18.0 mg/dLST. GEORGE REGIONAL [facility]PITAL HealthcareALL URIC ACIDon 69-68-3386Fmrvo [Mass/Vol]3.5 mg/dL2.6 - 6.0 mg/dLSaint Luke's North Hospital–Barry RoadCCF ALT on 95-54-4226ZMW [Catalytic activity/Vol]40 U/L14 - 59 U/LNOMS HealthcareCCF AST on 08-00-1466KFB [Catalytic activity/Vol]24 U/L15 - 37 U/LNOMS HealthcareNo Panel Informationon 31-08-5473Ksqhgxjdixgweg and review of laboratory results AbnormalNOMS HealthcareCLINISYNCNUniversity of Missouri Health CareTBH CREATININEon 09-03-2025 Creatinine [Mass/Vol]0.42 mg/dLLow0.55 - 1.02 mg/dLNONY HealthcareGFR/1.73 sq M.predicted CKD-EPI (S/P/Bld) [Vol rate/Area]>60>=60 mL/min/1.73m 2NParkland Health Center EGFR-NON AF YEMENI>60>=60 mL/min/1.73m 2NParkland Health Center URINE T PROTEIN CREAT RATIOon 05-44-0769HMKYMGCFHR URINE RANDOM<13.36Aab35.00 - 300.00 mg/dLSaint Luke's North Hospital–Barry RoadTOTAL PROTEIN URINE RANDOM<6.0NINF - 11.9 mg/dLSaint Luke's North Hospital–Barry RoadUrinalysis macro (dipstick) panel (U)on 22-47-0184Kskekizkg, UA NegativeNegative - 4(70) +++ mg/dLST. GEORGE REG[facility] HealthcareBlood, UANegativeNegative - 50 Teodoro/[facility] HealthcareClarity, UAClearNONY HealthcareColor, UAYellowNONY HealthcareGlucose, UANegativeNegative - 2000(110) ++++ mg/dLST. GEORGE REG[facility]AL [facility] Healthcare Interpretation and review of laboratory resultsNormalNONY HealthcareKetones, UA NegativeNegative - 160(16) ++++ mg/dLST. GEORGE REGIONAL [facility]OSPITAL HealthcareLeukocytes, UANegative Negative - 500+++ Robinson/[facility] HospitalNitrite, UANegativeNegative - Positive NOMS HealthcarepH, UA6.55 - 9NONY HealthcareProtein, UANegativeNegative - 2000(20) ++++ mg/dLNONY HealthcareSpec Grav, UA1.0051 - 1.03NONY Healthcare Urobilinogen, UA2.00.2 - 12 mg/dLNovant Health, Encompass HealthTB TOTAL PROTEIN 24 HOUR URINEon 31-94-5036Teiroxdgeebqrb and review of laboratory results AbnormalST. GEORGE [facility] HealthcareProtein (U) [Mass/Vol]22.6 mg/dLHighNINF - 11.9 mg/dLCedar County Memorial Hospital TOTAL PROTEIN 24 HOUR ZOCCH830.6NINFNOMS HealthcareTOTAL VOLUME 24 HOUR WDSTM459eL/24hrNOCox BransonCLINISYNWORCESTER RECOVERY CENTER AND [facility]PITAL HealthcareALL CBC WITH AUTO DIFFon 55-79-8633ABYXVTMIT ABSOLUTE AUTO0.1NOMS HealthcareBasophils/100 WBC (Bld)0.5 %0.2 - 2.0 %NOMS HealthcareEosinophils/100 WBC (Bld)1.4 %0.9 - 7.0 % [facility] RoadErythrocyte distribution width (RBC) [Ratio]13 %11.0 - 15.0 %NOM HealthcareHematocrit (Bld) [Volume fraction]34.4 %Low36.0 - 48.0 %[facility] RoadHemoglobin (Bld) [Mass/Vol]11.3 g/dLLow12.0 - 16.0 g/dLSaint Luke's North Hospital–Barry Road IMMATURE GRANULOCYTES ABS AUTO0.59HighNOCox BransonImmature granulocytes/100 WBC (Bld)4.4 %High0.0 - 0.5 %[facility] RoadInterpretation and review of laboratory resultsAbnormalNOCox BransonLYMPHOCYTES ABSOLUTE AUTO2.4NOMS [facility] CampusLymphocytes/100 WBC (Bld)17.8 %Low20.5 - 60.0 %[facility]west Medical CenterH (RBC) [Entitic mass]29.4 pg26.7 - 34.0 pgNorthwest Medical CenterHC (RBC) [Mass/Vol] 32.8 g/dL29.9 - 35.2 g/dLSaint Luke's North Hospital–Barry RoadMCV (RBC) [Entitic vol]89.4 fL81.0 - 99.0 fLSaint Luke's North Hospital–Barry RoadMONOCYTES ABSOLUTE AUTO1.1HighNOCox BransonMonocytes/100 WBC (Bld)8.1 %1.7 - 12.0 %[facility] RoadNEUTROPHILS ABSOLUTE ATVN5QalmEHUB HealthcareNeutrophils/100 WBC (Bld)67.8 %43.0 - 75.0 %[facility]–Barry RoadPlatelet mean volume (Bld) [Entitic vol]9.6 fL9.5 - 13.5 fLSaint Luke's North Hospital–Barry RoadTB EO #0.2NOMS [facility] West CampusTB JEK653KFGG [facility] RBC3.85LowNOMS [facility] WBC13.3High [facility]Bar[facility] RoadCLINISYNCNUniversity of Missouri Health CareTB URINE T PROTEIN CREAT RATIOon 09-07-4968KPCJGZSRIY URINE RANDOM<13.88Jct28.00 - 300.00 mg/dLNONY Healthcare Interpretation and review of laboratory resultsAbnormalNOMS HealthcareTOTAL PROTEIN URINE RANDOM<6.0NINF - 11.9 mg/dLNONY HealthcareCLINISYNCNSAINT [facility]ANC[facility] Healthcare US OB BPP W NON-STRESSon 33-64-9552Opp[place], [place] [address] Ultrasound Report Signed Patient: JUHI GAMA MR#: [id number] : 1995 Acct:[id number] Age/Sex: 30 / F ADM Date: Loc: [facility] 250- Attending Dr: KUNAL HYATT M.D. Ordering Physician: Steph Keane Date of Service: 08/27/25 Procedure(s): US OB BPP w non-stress Accession Number(s): [id number] cc: Steph Keane; Yomaira BELTRAN [place] [address] Patient Name: JUHI GAMA MRN: [id number]:[id number] date: 1995 Sex: F Assigned Patient Location: LAB Current Patient Location: LAB Accession/Order Number: [id number] Exam Date: 08/27/2025 17:37 Report Date: 08/27/2025 [...] Morillo M.D. 08/27/2025 6:02 PM Dictation Location: [employer] BVEAST AD[facility] RURAL HEALTHCAREInnerPoint Energy Electronically authenticated by: [id number] Y Date: 08/27/2025 18:02 Dictated By: Jp Morillo D.O. Signed By: 08/27/251804 DD/ 01 TD/TT: System Auditor:Randell Wheat MD - 08/27/2025 [place] [address] Ultrasound Report Signed Patient: JUHI GAMA MR#: [id number] : 1995 Acct:[id number] Age/Sex: 30 / F ADM Date: Loc: [facility] [address]: KUNAL HYATT M.D. Ordering Physician: Steph Keane Date of Service: 08/27/25 Procedure(s): US OB BPP w non-stress Accession Number(s): [id number] cc: Steph Keane; Yomaira BELTRAN KENNETH [place] [address] Patient Name: JUHI GAMA MRN: [facility]:[id number] date: 1995 Sex: F Assigned Patient Location: LAB Current Patient Location: LAB Accession/Order Number: [id number] Exam Date: 08/27/2025 17:37 Report Date: 08/27/2025 [...] Morillo M.D. 08/27/2025 6:02 PM Dictation Location: [place] [address] Electronically authenticated by: [id number] Y Date: 08/27/2025 18:02 Dictated By: Jp Morillo D.O. Signed By: 08/27/251804 DD/ 01 TD/TT: System Auditor: [facility] HealthcareRadiology Study observation (narrative)NOMS HealthcareUS OB BPP W NON-STRESSOrdered By: Radiologist Radiology on 28-64-0900PKCD Healthcare Work Phone: Urinalysis macro (dipstick) panel (U)on 08-27-2025 Bilirubin, UANegativeNegative - 4(70) +++ mg/dLNOMS HealthcareBlood, UANegative Negative - 50 Teodoro/mcLNONY HealthcareClarity, UAClearNOMS HealthcareColor, UA YellowNOMS HealthcareGlucose, UANegativeNegative - 2000(110) ++++ mg/dLNONY HealthcareInterpretation and review of laboratory resultsNormalSaint Luke's North Hospital[facility] Ketones, UANegativeNegative - 160(16) ++++ mg/dLST. GEORGE REG[facility]AL [facility] HealthcareLeukocytes, UA NegativeNegative - 500+++ Robinson/mcLNONY HealthcareNitrite, UANegativeNegative - PositiveNOMS HealthcarepH, UA65 - 9NOMS HealthcareProtein, UANegativeNegative - 2000(20) ++++ mg/dLNONY HealthcareSpec Grav, UA1.0151 - 1.03NONY Healthcare Urobilinogen, UA2.00.2 - 12 mg/dLNONY HealthcareNOMS HealthcareURINE CULTURE, ROUTINEon 00-86-8144Hbudinej identified Cx Nom (U) Urine Culture, Routine NOMS HealthcareBacteria identified Cx Nom (U)Mixed urogenital floraNONY HealthcareBacteria identified Cx Nom (U)25,000-50,000 colony forming units per mLNOMS HealthcareBacteria identified Cx Nom (U)Performed at: - [facility] NOMS HealthcareBacteria identified Cx Nom (U)[address] [place], [place] [id number] HealthcareBacteria identified Cx Nom (U)Branch Lead: Cm Sandoval PhD, Phone: [phone] Luke's North Hospital–Barry RoadCLINISYNWORCESTER RECOVERY CENTER AND HOSPITAL Xpymmhclut6cc hr Glucose Tolerance 100 gm loadon 73-30-7894Wopyltk Tolerance Test 2 Pwoz845 [facility]-Patterson Medical CenterCapillary Glucose POCon 00-86-5934Jgyviky [Mass/Vol]88 mg/vWPhtqsc16-20HlwtnjSt. Vincent HospitalComment on above:Performed By: #### [id number] #### [facility] [address] [place] [address] [place] [address]Vxp 1 Hron 82-90-9826Fpziwyj [Mass/Vol]152 mg/zKYdrvsq30-743 St[facility] Vincent HospitalComment on above:Performed By: #### [id number] #### [facility] [address] [place], [place] [address]Jdf 2 Hron 11-63-8055Qzdyhwx [Mass/Vol]169 mg/tFOfjq28-118 St. Vincent HospitalComment on above:Performed By: #### [id number] #### [facility] [address], [place] [address]Yea 3 Hron 62-64-4859Vjxpsqf [Mass/Vol]141 mg/vQMlzw46-860 [facility] HospitalComment on above:Performed By: #### [id number] #### [facility] [address], [place] [address]Pbt Fastingon 56-46-4470Epkmczc [Mass/Vol]82 mg/dXCcrrwm30-32 St[facility] HospitalComment on above:Performed By: #### 4466596 #### [facility] [address], [place] [address]Dhlmwbx tolerance, 1 houron 51-38-9902Kjaeqnv Tolerance Test 1 Exia733IxrJpatej Health SystemGlucose tolerance, 3 hourson 50-35-1598Ywnidqv Tolerance Test 3 Psdg614CkmFfljsb Health SystemGlucose, tolerance fastingon 95-65-0626Axcfjzv Tolerance Test Iwkanft39SmgKmmcmv Health SystemNo Panel Informationon 07-99-4246ZicBlaiguWright-Patterson Medical CenterCBC w/ Auto Diffon 08-12-2025 Basophil Absolute0.1 E9/LNormal0.0-0.2FSalem Regional Medical CenterComment on above:Performed By: #### [id number] #### [facility] [address], [place] [address]Pqdmrjngo/100 WBC (Bld)0.6 %Normal0.0-2.0St. Vincent HospitalComment on above:Performed By: #### 2267546 #### [facility] [address], [place] [address]Wly Absolute0.1 E9/LNormal0.0-0.5FSalem Regional Medical Center Comment on above:Performed By: #### [id number] #### [facility] [address], [place] [address]Zvpbgpzqvkq/100 WBC (Bld)1.0 %Normal0.0-8.0St. Vincent HospitalComment on above:Performed By: #### [id number] #### [facility] [address], [place] [address]Whwurhmuvld distribution width (RBC) [Ratio]12.9 %Normal 10.9-14.2FSalem Regional Medical CenterComment on above:Performed By: #### [id number] #### [facility] [address] [place] [address]Idvupajxpq (Bld) [Volume fraction]33.1 %Low34.0-46.0St. Vincent HospitalComment on above:Performed By: #### 1133940 #### [facility] [address] [place] [address]Erkmnovrra (Bld) [Mass/Vol]11.4 g/dLLow12.0-16.0St. Vincent HospitalComment on above:Performed By: #### 0053092 #### [facility] [address] [place] [address]Hbbqo Absolute2.0 E9/LNormal1.0-4.0[facility] Comment on above:Performed By: #### [id number] #### [facility] [address], [place] [address]Nyvpytatman/100 WBC (Bld)19.6 %Ihwnnw42.0-50.0St. Vincent HospitalComment on above:Performed By: #### [id number] #### [facility] [address], [place] [address]OGO (RBC) [Entitic mass]29.9 riDhgcmx06.0-34.0St. Vincent HospitalComment on above:Performed By: #### [id number] #### [facility] [address] [place] [address]PLDE (RBC) [Mass/Vol]34.4 g/hAYthnza69.4-36.0St. [facility] HospitalComment on above:Performed By: #### [id number] #### [facility] [address] [place] [address]BFG (RBC) [Entitic vol]86.7 aEUdzuwv81.0-100.0St. Vincent HospitalComment on above:Performed By: #### 5348625 #### [facility] [address] [place] [address]Htjb Absolute0.5 E9/LNormal0.2-1.0[facility] Comment on above:Performed By: #### 3996112 #### [facility] [address] [place] [address]Gxpyxkayw/100 WBC (Bld)4.6 %Normal4.0-14.0St. Vincent HospitalComment on above:Performed By: #### 4582231 #### [facility] [address] [place] [address]Aojukb Absolute7.5 E9/LNormal2.0-7.5FSalem Regional Medical Center Comment on above:Performed By: #### [id number] #### [facility] [address] [place] [address]Dhuopq Auto74.2 %Zmpvdh07.0-75.0[facility] Comment on above:Performed By: #### [id number] #### [facility] [address] [place] [address]Vgzcofzz324.0 E9/DJaeduq207.0-500.0[facility] Comment on above:Performed By: #### 5144750 #### [facility] [address] [place] [address]Qzvptzta mean volume (Bld) [Entitic vol]8.1 fLNormal6.4-10.8 [address] [facility] HospitalComment on above:Performed By: #### 3596182 #### [facility] [address] [place] [address]HRK3.8 E12/LLow4.3-5.9St. [facility] HospitalComment on above:Performed By: #### [id number] #### [facility] [address] [place] [address]WSL06.1 E9/LNormal4.0-11.0St. [facility] HospitalComment on above:Performed By: #### 2802783 #### [facility] [address] [place] [address]Hxwxvvzwsy 66-64-0944Ramwllbf Lvl7 ng/bOCpm41-491WeknkoSt. Vincent HospitalComment on above:Performed By: #### [id number] #### [facility] [address] [place] [address]Iegcecyh 18-04-9246Zypvke Lvl>22.3Normal>=6.7FSalem Regional Medical CenterComment on above:Performed By: #### 2636114 #### [facility] [address] [place] [address]Oajl Scr Glu 1 Hron 97-80-5021Xqcydvp [Mass/Vol]155 mg/dLHigh 55-140St. Vincent HospitalComment on above:Performed By: #### [id number] #### [facility] [address] [place] [address]Hiijxfe 1h post 50g loadon 02-70-8025Hrkkcyn, 1 hr PP 50GM dose 155ProMedica Health SystemIronon 66-77-9771Yvqv74 microgram/dSTudbtm02-726FcazlsSt. Vincent HospitalComment on above:Performed By: #### 2871742 #### [facility] [address] [place] [address]Ir Panel Informationon 85-75-1919VBTP HealthcareTIBC Calculated on 02-38-2500TEBK675 microgram/gGQluc291-485PvuhloSt. Vincent HospitalComment on above:Performed By: #### [id number] #### [facility] [address], [place] [address]Vukyiyxrqrt [Mass/Vol]455 mg/qLXgxk152-736PeevtrSt. Vincent HospitalComment on above:Performed By: #### [id number] #### [facility] [address], [place] [address]SM OB LIMITED 1+ FETUSESon 71-54-0133BI OB LIMITED 1+ FETUSES FINDINGS: Single viable [...] Delivery: 11/28/25 Gestational Age as of 07/21/2025: 89s9aHutvcaadgu macro (dipstick) panel (U)on 11-46-1115Zzguegkmp, UANegativeNegative - 4(70) +++ mg/dLNOMS HealthcareBlood, UANegativeNegative [...] HealthcareUrobilinogen, UA1.00.2 - 12 mg/dLNOMS HealthcareVit B12on 47-09-1306Nyrpyythq (Vitamin B12) [Mass/Vol]205 pg/oQFpgdhg37-8854JcdfupSt. Vincent HospitalComment on above:Performed By: #### [id number] #### [facility] [address] [place] [address]ESD w/ Auto Diffon 63-62-2770Qvtokpfu Absolute0.0 E9/LNormal 0.0-0.2FSalem Regional Medical CenterComment on above:Performed By: #### [id number] #### [facility] [address] [place] [address]Xnwvibwjb/100 WBC (Bld)0.2 %Normal0.0-2.0St. Vincent HospitalComment on above:Performed By: #### 1071387 #### [facility] [address] [place] [address]Bry Absolute0.1 E9/LNormal0.0-0.5FSalem Regional Medical Center Comment on above:Performed By: #### [id number] #### [facility] [address] [place] [address]Tvunuoqbdnc/100 WBC (Bld)0.5 %Normal0.0-8.0St. Vincent HospitalComment on above:Performed By: #### 7710383 #### [facility] [address] [place] [address]44[address]Apwjlrkuftk distribution width (RBC) [Ratio]13.0 %Normal 10.9-14.2FSalem Regional Medical CenterComment on above:Performed By: #### 2545139 #### [facility] [address] [place] [address]Iwhazjkyuj (Bld) [Volume fraction]31.9 %Low34.0-46.0St. Vincent HospitalComment on above:Performed By: #### 0547105 #### [facility] [address] [place] [address]Ibuhczqqor (Bld) [Mass/Vol]11.1 g/dLLow12.0-16.0St. Vincent HospitalComment on above:Performed By: #### 2792556 #### [facility] [address] [place] [address] 524[address]Ddadf Absolute2.1 E9/LNormal1.0-4.0[facility] Comment on above:Performed By: #### 0320914 #### [facility] [address] [place] [address]Viitbiavhwb/100 WBC (Bld)16.2 %Nnifnj47.0-50.0St. [facility] HospitalComment on above:Performed By: #### 5683610 #### [facility] [address] [place] [address]WUE (RBC) [Entitic mass]29.9 efKzyadc59.0-34.0St[address] [facility] HospitalComment on above:Performed By: #### 2750100 #### [facility] [address] [place] [address]WGDQ (RBC) [Mass/Vol]34.8 g/pMYahsov29.4-36.0St. [facility] HospitalComment on above:Performed By: #### [id number] #### [facility] [address] [place] [address]PNI (RBC) [Entitic vol]85.7 lVKrhbmf89.0-100.0St. [facility] HospitalComment on above:Performed By: #### 3706022 #### [facility] [address] [place] [address]Wlag Absolute0.9 E9/LNormal0.2-1.0[facility] Comment on above:Performed By: #### [id number] #### [facility] [address] [place] [address]Biuqvxxsw/100 WBC (Bld)7.0 %Normal4.0-14.0St. [facility] HospitalComment on above:Performed By: #### 9147437 #### [facility] [address] [place] [address]Ddgkmd Absolute9.7 E9/LHigh2.0-7.5FSalem Regional Medical Center Comment on above:Performed By: #### 3989402 #### [facility] [address], [place] [address]Chrdti Auto76.1 %High36.0-75.0[facility] Comment on above:Performed By: #### [id number] #### [facility] [address], [place] [address]Hnaecrjh668.0 E9/VFnjdjy307.0-500.0[facility] Comment on above:Performed By: #### [id number] #### [facility] [address], [place] [address]Tpzkguuz mean volume (Bld) [Entitic vol]8.[address] fLNormal6.4-10.8 [address] [facility] HospitalComment on above:Performed By: #### [id number] #### [facility] [address], [place] [address]KCQ0.7 E12/LLow4.3-5.9St. [facility] HospitalComment on above:Performed By: #### 6245445 #### [facility] [address], [place] [address]EWO37.8 E9/LHigh4.0-11.0St. [facility] HospitalComment on above:Performed By: #### 8846539 #### [facility] [address], [place] [address]IIFcc 81-60-6872ZH3 [Moles/Vol]20 mmol/HWua71-92GuybiaSt. Vincent HospitalComment on above:Performed By: #### 6298249 #### [facility] [address], [place] [address]Vinjz gap [Moles/Vol]16 mmol/LNormal6-16St. [facility] HospitalComment on above:Performed By: #### 1471507 #### [facility] [address], [place] [address]Zxrewlf [Mass/Vol]3.8 g/dLNormal3.3-5.0St. [facility] HospitalComment on above:Performed By: #### [id number] #### [facility] [address], [place] [address]Dxorzcs/Globulin [Mass ratio]1.3 {ratio}Normal1.1-2.2FSalem Regional Medical CenterComment on above:Performed By: #### [id number] #### [facility] [address], [place] [address]Dar Phos78 Int._Unit/NJhmkji28-28JbnlpaSt. Vincent Hospital Comment on above:Performed By: #### [id number] #### [facility] [address], [place] [address]CMS27 Int._Unit/LNormal6-46St. [facility] HospitalComment on above:Performed By: #### [id number] #### [facility] [address], [place] [address]ZTB60 Int._Unit/LNormal5-43St. [facility] HospitalComment on above:Performed By: #### 3267543 #### [facility] [address], [place] [address]Jbfu Total0.8 mg/dLNormal0.0-1.1FSalem Regional Medical Center Comment on above:Performed By: #### [id number] #### [facility] [address], [place] [address]PJY/Creat Ratio18 No CeqtnDicjsq10-84NfgxsuSt. Vincent HospitalComment on above:Performed By: #### 6541716 #### [facility] [address], [place] [address]Btaeqjs [Mass/Vol]8.9 mg/dLNormal8.9-11.1FSalem Regional Medical CenterComment on above:Performed By: #### 3981050 #### [facility] [address], [place] [address]Kduxwntk [Moles/Vol]104 mmol/SHgnrui565-019WtsmrsSt. Vincent HospitalComment on above:Performed By: #### 3146525 #### [facility] [address], [place] [address]Nqcicqwhmb [Mass/Vol]0.6 mg/dLNormal0.5-1.3FSalem Regional Medical CenterComment on above:Performed By: #### 9182630 #### [facility] [address], [place] [address]Lvexlydx (S) [Mass/Vol]3.0 g/dLNormal1.4-4.0St. [facility] HospitalComment on above:Performed By: #### 2909827 #### [facility] [address], [place] [address]Wqiimsb [Mass/Vol]92 mg/mFNwbafc54-069LwsnuySt. Vincent HospitalComment on above:Performed By: #### 1356992 #### [facility] [address], [place] [address]Mmjjulalz [Moles/Vol]3.7 mmol/LNormal3.5-5.3FSalem Regional Medical CenterComment on above:Performed By: #### [id number] #### [facility] [address], [place] [address]Oyxekvl [Mass/Vol]6.8 g/dLNormal6.0-7.8St[facility] HospitalComment on above:Performed By: #### [id number] #### [facility] [address], [place] [address]Hkwhjy [Moles/Vol]136 mmol/BKzdxeb988-633GsisgoSt. Vincent HospitalComment on above:Performed By: #### [id number] #### [facility] [address], [place] [address]Ymfw nitrogen [Mass/Vol]11 mg/dLNormal5-21St. [facility] HospitalComment on above:Performed By: #### [id number] #### [facility] [address], [place] [address]Qflgo Panelon 91-01-0975Djsbivnhaup [Mass/Vol]239 mg/dLHigh 120-200Fisher Gus Medical CenterComment on above:Performed By: #### [id number] #### [facility] [address], [place] [address]Wehltlynrap in HDL [Mass/Vol]88 mg/dLInvalid Interpretation CodeSt. Vincent HospitalComment on above:Result Comment: '>= 60 LOW RISK' '<= 40 HIGH RISK'Performed By: #### [id number] #### [facility] [address], [place] [address]Rdcxggdjrsf in LDL [Mass/Vol]144 mg/dLHigh<=129St. Vincent HospitalComment on above:Performed By: #### [id number] #### [facility] [address], [place] [address]Lsomhdpunzo in VLDL [Mass/Vol]40 mg/dLNormal7-40St. Vincent HospitalComment on above:Performed By: #### [id number] #### [facility] [address], [place] [address]Vionrlahesgs [Mass/Vol]202 mg/dLHigh<=149St. Vincent HospitalComment on above:Performed By: #### [id number] #### [facility] [address], [place] [address]mCHZfr 62-04-9464hPPH621 mL/min/1.73 u0Hwxriq>=59St. Vincent HospitalComment on above:Performed By: #### [id number] #### [facility] [address], [place] [address]IET, SERUM, OPEN SPINA BIFIDAon 39-37-8048QND MOM0.95.NOMS HealthcareAFP VALUE59.2 ng/mL.NOMS HealthcareCOMMENT:Comment.[facility] Comment on above:Amy Ramos, Ph.D., [facility] Director References: Available Upon Request. Multiples Of Median Cutoffs For AFP Elevations Hsieh 2.5 Black 2.8 IDD 2.0 Twins 4.5 Abbreviation Definitions IDD - Insulin Dep Diabetes OSBR - Open Spina Bifida Risk For further inquiries contact [facility] at [phone]. This test was developed and its performance characteristics determined by [employer]. It has not been cleared or approved by the Food and Drug Administration. Performed at: [facility] [address], [place] [id number] Branch Lead: Dona Justin [facility], Phone: [phone] GEST. AGE ON COLLECTION DATE20.6. weeksNONY HealthcareGESTAT. AGE BASED ONLMP. [facility] HealthcareComment on above:Recalculations are not recommended when gestational dating by LMP and ultrasound are within 10 days. INSULIN DEP DIABETESNo.[facility] HealthcareINTERPRETATIONComment.[facility] Comment on above:Interpretation: Screen Negative This result [...] Customer Services to discuss available options. The [employer] recommends amniocentesis be offered to women age 35 and older. MATERNAL AGE AT EDD30.7. yrNONY HealthcareMULTIPLE GESTATIONNo.[facility] OSBR RISK [address] [id number] HealthcareRACECaucasian.[facility] RoadRESULTSReport. [facility] RoadTEST RESULTS:Negative.[facility]–Barry RoadYqhaqpqqnfOYVCSE737. lbsNONY HealthcarePREGNANCY N N LMP [id number] 2 17 N 1 Y 146 N N N N N White/ CLINISYNCNONY HealthcareUS OB 14+ WEEKS ANATOMY SCANon 83-07-1359DR OB 14+ WEEKS ANATOMY SCANEXAM: US OB [...] II, MD, PHD at 16-Jul-2025 08:07:07 AM [facility] TeleradiologyNormalNot AvailableComment on above:Order Comment: US OB ANATOMY SINGLE W US OB CERVICAL LENGTH Estimated Date of Delivery: 11/28/25 Gestational Age as of 06/22/2025: 05i2cPoqwfpruzv macro (dipstick) panel (U)on 34-98-4861Ugqnaylxp, UANegativeNegative - 4(70) +++ mg/dLNOMS HealthcareBlood, UANegativeNegative - 50 Teodoro/mcLNOMS HealthcareClarity, UAClearNOMS Healthcare Color, UAYellowNOMS HealthcareGlucose, UANegativeNegative - 2000(110) ++++ mg/dL NOMS HealthcareInterpretation and review of laboratory resultsNormalNOMS HealthcareKetones, UANegativeNegative - 160(16) ++++ mg/dLNOMS Healthcare Leukocytes, UANegativeNegative - 500+++ Robinson/mcLNOMS HealthcareNitrite, UA NegativeNegative - PositiveNOMS HealthcarepH, UA65 - 9NOMS HealthcareProtein, UA NegativeNegative - 2000(20) ++++ mg/dLNONY HealthcareSpec Grav, UA1.011 - 1.03 NOMS HealthcareUrobilinogen, UA1.00.2 - 12 mg/dLNONY HealthcareNONY Healthcare RECURRENT VAGINITIS (HTRX)on 00-88-5981PVYGCUKDO FCPWMOL6MDUW Healthcare ATOPOBIUM VAGINAENot detectedNONY HealthcareBVAB 2,3 (BACTERIAL VAGINOSIS ASSOCIATED BACTERIA 2, 3); MOBILUNCUS XUI3OLZH HealthcareBVAB 2,3 (BACTERIAL VAGINOSIS ASSOCIATED BACTERIA 2, 3); MOBILUNCUS SPPNot detectedNOMS Healthcare RADHA ALBICANS, PARAPSILOSIS, GRUMZJRQKT7FIWO HealthcareCANDIDA ALBICANS, PARAPSILOSIS, TROPICALISNot detectedNOMS HealthcareCANDIDA QYUSGJQE8AFQL HealthcareCANDIDA GLABRATANot detectedNOMS HealthcareCANDIDA IJIMBE6LLVG HealthcareCANDIDA KRUSEINot detectedNOMS HealthcareCHLAMYDIA JOJOADJKFUC9MMBL HealthcareCHLAMYDIA TRACHOMATISNot detectedNOMS HealthcareGARDNERELLA VAGINALIS 17.967AbnormalNOMS HealthcareGARDNERELLA VAGINALISDetectedAbnormalNONY HealthcareInterpretation and review of laboratory resultsAbnormalNOMS Healthcare MEGASPHAERA (TYPES 1, 2)0NOMS HealthcareMEGASPHAERA (TYPES 1, 2)Not detectedNOMS HealthcareMYCOPLASMA CEDUMLTCZA5BUVP HealthcareMYCOPLASMA GENITALIUMNot detectedNOMS HealthcareNEISSERIA OQVMZFBNFFO1RQDX HealthcareNEISSERIA GONORRHOEAENot detectedNOMS HealthcareTRICHOMONAS BRDYHCKXU4ZQUZ Healthcare TRICHOMONAS VAGINALISNot detectedNOMS HealthcareNOMS HealthcareUrinalysis macro (dipstick) panel (U)on 73-37-3997Emlatnkse, UANegativeNegative - 4(70) +++ mg/dL NOMS HealthcareBlood, [...] mg/dLNOMS HealthcareNOMS HealthcareUrinalysis macro (dipstick) panel (U)on 87-21-9347Nkiwqfkrq, UA NegativeNegative - 4(70) +++ mg/dLNOMS HealthcareBlood, UANegativeNegative - 50 Teodoro/mcLNOMS HealthcareClarity, UAClearNOMS HealthcareColor, UAYellowNOMS HealthcareGlucose, UANegativeNegative - 2000(110) ++++ mg/dLNOMS Healthcare Interpretation and review of laboratory resultsNormalNOMS HealthcareKetones, UA NegativeNegative - 160(16) ++++ mg/dLNOMS HealthcareLeukocytes, UAPositive Negative - 500+++ Robinson/[facility] Lang[facility] Orthopedic HospitalNOMS HealthcareComment on above:smallNitrite, UA NegativeNegative - PositiveNOMS HealthcarepH, UA6.55 - 9NOMS HealthcareProtein, UANegativeNegative - 1999(20) ++++ mg/dLNOMS HealthcareSpec Grav, UA1.011 - 1.03 NOMS HealthcareUrobilinogen, UA0.20.2 - 12 mg/dLNOMS HealthcareNOMS Healthcare BOX TESTon 87-15-4559MYR TEST SENT OUTunohiohealth mansfield hospitalNONY EevwrtdlvnSBB4ojumzCGMK VnlzftlhniABU98/9/25NOMS HealthcareUNITY BOX CLINISYNCCBC without diffon 64-85-2259Qzobpsnbob (Bld) [Volume fraction]39.8 % [facility] SystemHemoglobin (Bld) [Mass/Vol]13.2 g/dLChillicothe Hospital SystemPlatelets (Bld) [#/Vol]390 10*3/uLProTrihealth Mccullough-Hyde Memorial HospitalRb Mcv (Fl) By Automated Count84.7W[facility]-Patterson Medical CenterDrug Screen, Urineon 05-04-2025 Amphetamine/MethamphetamineNegativeWright-Patterson Medical CenterBarbituratesNegative [facility] CenterBenzodiazepinesNegativeWright-Patterson Medical CenterCocaine MetaboliteNegativeWright-Patterson Medical CenterMethadoneNegativeWright-Patterson Medical CenterOpiatesNegativeWright-Patterson Medical CenterOxycodoneNegativeWright-Patterson Medical CenterPhencyclidineNegativeWright-Patterson Medical CenterThc Marijuana, UrineNegative [facility] Medical CenterHBV surface Ag IA Qlon 66-96-3580Rtriuxizr B Surface AntigenNegativeWright-Patterson Medical CenterHCV Ab IA Qlon 60-35-6614HGI Ab Ql (S) Non-ReactiveWright-Patterson Medical CenterHIV 1+2 Ab+HIV1 p24 Ag IA Qlon 61-79-7986OHW 1&2 AB/AGNon-ReactiveWright-Patterson Medical CenterHemoglobin A1con 40-05-6288StD2f (Bld) [Mass fraction]5.3 %4.0 - 6.0 %[facility] Medical CenterNo Panel Information on 28-79-6798LRAH HealthcareRubella IGG immune statusOrdered By: Angeline Velasquez on 94-39-4890Nrrlduy immune IgGChillicothe Hospital SystemType and screenon 22-61-7922Csx/Rh(D)PositiveWright-Patterson Medical CenterHCG ( test) Ql (U)on 25-92-2289Cqbbtkhrqmvmgr and review of laboratory resultsAbnormalNOMS Healthcare Preg Test, UrPositiveNegativeNOMS HealthcareNOMS HealthcareUS OB TRANSVAGINALon 77-80-5378FirBut[place], [place] [address] Ultrasound Report Signed Patient: JUHI COPE MR#: [id number] : 1995 Acct:[id number] Age/Sex: 30 / F ADM Date: 05/01/25 Loc: US Attending Dr: Nathan Pop D.O. Ordering Physician: Nathan Pop D.O. Date of Service: 05/01/25 Procedure(s): US OB transvaginal Accession Number(s): [id number] cc: Nathan Pop D.O.; Physician,Non-Staff [place] [id number] Patient Name: JUHI COPE MRN: [facility]:[id number] date: 1995 Sex: F Assigned Patient Location: US Current Patient Location: US Accession/Order Number: [id number] Exam Date: 05/01/2025 08:57 Report Date: 05/01/2025 [...] Faria M.D. 05/01/2025 9:01 AM Dictation Location: [place] [address] Electronically authenticated by: [id number] Y Date: 05/01/2025 09:01 Dictated By: Will Faria M.D. Signed By: 05/01/25903 DD/ 0 TD/TT: System Auditor:TBHRadiology, Radiologist, MD [place] 05/01/2025 [place] [address] Ultrasound Report Signed Patient: JUHI COPE MR#: [id number] : 1995 Acct:[id number] Age/Sex: 30 / F ADM Date: 05/01/25 Loc: US Attending Dr: Nathan Pop D.O. Ordering Physician: Nathan Pop D.O. Date of Service: 05/01/25 Procedure(s): US OB transvaginal Accession Number(s): [id number] cc: Nathan Pop D.O.; Physician,Non-Staff Katherine The [place] [id number] Patient Name: JUHI COPE MRN: [facility]:[id number] date: 1995 Sex: F Assigned Patient Location: US Current Patient Location: US Accession/Order Number: [id number] Exam Date: 05/01/2025 08:57 Report Date: 05/01/2025 [...] Faria M.D. 05/01/2025 9:01 AM Dictation Location: [place] [address] Electronically authenticated by: [id number] Y Date: 05/01/2025 09:01 Dictated By: Will Faria M.D. Signed By: 05/01/25903 DD/ 0 TD/TT: System Auditor: [facility] HOSPITALShalonda HealthcareRadiology Study observation (narrative)[facility] HealthcareUS OB TRANSVAGINALOrdered By: Radiologist Radiology on 13-10-4728DZCU Healthcare Work Phone: Urinalysis macro (dipstick) panel [...] mg/dLNOMS HealthcareNOMS HealthcareCHEMISTRYOrdered By: SYSTEM SYSTEM on 86-19-5648Ajjgbpacgoxx Lvl31.35 ng/mLInvalid Interpretation CodeRemisol ChemComment on above:Result Comment: 'F NON FOLLICULAR = 0.10 - 0.60' 'LUTEAL = 3.00 - 17.5' 'MIDLUTEAL = 3.30 - 18.6' 'POST-MENOPAUSE = 0.10 - 0.40' '-FIRST TRIMESTER = 8.30 - 66.5' 'SECOND TRIMESTER = 18.9 - 66.1' 'THIRD TRIMESTER = 35.8 - 312.4' 'MALES = 0.14 - 2.06'Progesteroneon 94-69-8350Ptazwqtktnts Lvl31.35 ng/mLInvalid Interpretation [facility] Shock Trauma CenterComment on above:Result Comment: 'F NON FOLLICULAR = 0.10 - 0.60' 'LUTEAL = 3.00 - 17.5' 'MIDLUTEAL = 3.30 - 18.6' 'POST-MENOPAUSE = 0.10 - 0.40' '-FIRST TRIMESTER = 8.30 - 66.5' 'SECOND TRIMESTER = 18.9 - 66.1' 'THIRD TRIMESTER = 35.8 - 312.4' 'MALES = 0.14 - 2.06'Performed By: #### [id number] #### [facility] [address], [place] [address]Spzuknoykqgyko 34-85-2684Svyghgevpqkr1.2 ng/mLNormal.The [facility] Health Physician GroupComment on above:Result Comment: Follicular phase 0.1 - 0.9 Luteal phase 1.8 - 23.9 Ovulation phase 0.1 - 12.0 First trimester 11.0 - 44.3 Second trimester 25.4 - 83.3 Third trimester 58.7 - 214.0 Postmenopausal 0.0 - 0.1 Performed at: [facility] [address] [id number] Branch Lead: Cm Sandoval PhD, Phone: [phone] PERFORMED BY: [facility] [address] [place] [address] PATHOLOGIST FINISHING AREA OPERATOR ARNULFO THOMAS M.D.Performed By: #### PROG #### [facility] , Transvaginal Non-OBon 88-47-0594KQ Transvaginal Non-OBExam Date/Time: 01/22/2025 16:22 EST Reason for Exam: N94.6 Report PLEASE SEE US Pelvis Non-OB Complete REPORT DATED: 01/22/2025. Ordering Provider: Nathan POP FINAL REPORT Dictated: 01/27/2025 10:11 am Siddharth Foy MD Signed (Electronic Signature): 01/27/2025 10:11 am Signed by: Siddharth Foy MD Transcribed by: ELOISA Technologist: ChrismengSt. Vincent HospitalUS Pelvis Non-OB Completeon 39-86-7900TI Pelvis Non-OB CompleteExam Date/Time: 01/22/2025 16:24 EST [...] Kate Gonzalez MD Transcribed by: ELOISA Technologist: [facility] CentermengSt. Vincent HospitalIGP,APTIMA HPV,AGE GDLNon 21-36-2941HES GDLN ACOG TESTINGNote.NOMS HealthcareComment on above:TESTS RESULT FLAG UNITS REF RANGE LAB Clinician Provided Cytology Information Source.............Cervix;Endocervix No. of containers..01 ThinPrep Vial Age Gina Smith... FLAG LEGEND: L-Low Normal,H-High Normal,LL-Alert Low,HH-Alert High <-Panic Low,>-Panic High,A-Abnormal,AA-Critical Abnormal Performed at: 01 =G [facility] [address] [place] [address] Loren Oneal MD, IGP, RFX APTIMA HPV ASCUNote.NOMS HealthcareComment on above:TESTS RESULT FLAG UNITS REF RANGE LAB DIAGNOSIS: 02 NEGATIVE FOR INTRAEPITHELIAL LESION OR MALIGNANCY. Specimen adequacy: 02 Satisfactory for evaluation. Endocervical and/or squamous metaplastic cells (endocervical component) are present. Performed by: Sophia Calzada, Oil Recovery Operator ([facility]) . 02 Note: Note 02 [...] <-Panic Low,>-Panic High,A-Abnormal,AA-Critical Abnormal Performed at: [address] [address] Loren Oneal MD, Performed at: =G - [facility] [address] [id number] Branch Lead: Loren Oneal MD, Phone: [phone] Performed at: - [facility] [id number] Branch Lead: Loren Oneal MD, Phone: [phone] BRUSH-SPATULA CERVIX ENDOCERVIX [facility] 01-27-6624ZDNLSlwqulbmc (WHQ) JUHI COPE ([id number]) 1995 F Date Time Provider Department 04/29/24 [...] [I10] Encounter Status:Closed by CANDIS GARCES on 04/29/24[facility] ANA LAURATanya 26-61-1758CLFDVlzjxdnih (Q) JUHI COPE ([id number]) 1995 F Date Time Provider Department 04/25/24 CHARLENE RODRIGUEZ Q During your visit today, we recorded the following information about you: Anna De Leon 04/25/2024 1:10 PM Signed Pt got in sooner for surgery with her local roll plugger. Please cancel surgery and all pre and [...] by ANNA DE LEON on 04/25/24[facility] 12-LEADon 26-69[place]8394[place], [place] [address] Electrocardiograph Report Signed Patient: JUHI COPE MR#: [id number] : 1995 Acct:[id number] Age/Sex: 28 / F ADM Date: 02/13/24 Loc: [facility] Attending Dr: Nathan Pop D.O. Ordering Physician: Nathan Pop D.O. Date of Service: 02/13/24 Procedure(s): ECG 12 lead Accession Number(s): [id number] cc: [facility] Test Date: 2024-02-13 Pat Name: JUHI COPE Department: Room: - Gender: Female Infusion Therapy Nurse: : 1995 Requested By: NATHAN POP Order Number: [id number] Reading MD: MARY KATE ORDAZ Measurements Intervals [place] Rate: 86 P: 31 VA: 133 QRS: 20 QRSD: 89 T: 47 QT: 374 QTc: 449 Interpretive Statements SINUS RHYTHM No previous ECG available for comparison Electronically Signed On 02-14-2024 6:50:27 EDT by MARY KATE ORDAZ Dictated By: Mary Kate Ordaz D.O. Signed By: 02/14/24 0650 DD/ 1455 TD/TT: System Auditor:TBHRadiology, Radiologist, - 02/14/2024 [place] [address] Electrocardiograph Report Signed Patient: JUHI COPE MR#: [id number] : 1995 Acct:[id number] Age/Sex: 28 / F ADM Date: 02/13/24 Loc: PST Attending Dr: Nathan Pop D.O. Ordering Physician: Nathan Pop D.O. Date of Service: 02/13/24 Procedure(s): ECG 12 lead Accession Number(s): [id number] cc: [facility] Test Date: 2024-02-13 Pat Name: JUHI COPE Department: Room: - Gender: Female Infusion Therapy Nurse: : 1995 Requested By: NATHAN POP Order Number: [id number] Reading MD: MARY KATE ORDAZ Measurements Intervals [place] Rate: 86 P: 31 VA: 133 QRS: 20 QRSD: 89 T: 47 QT: 374 QTc: 449 Interpretive Statements SINUS RHYTHM No previous ECG available for comparison Electronically Signed On 02-14-2024 6:50:27 EDT by MARY KATE ORDAZ Dictated By: Mary Kate Ordaz D.O. Signed By: 02/14/24 0650 DD/ 1455 TD/TT: System Auditor: LANETTE Hooks 12-LEADOrdered By: Radiologist Radiology on 57-94-4217TR[facility] Work Phone: ECG 12-LEADon 90-81-1772Mextwdwtj Study observation (narrative)LANETTE SmallUS PELVIS W/ TRANSVAGINALon 16-19-5684Iau [address] [address] Ultrasound Report Signed Patient: JUHI COPE MR#: [id number] : 1995 Acct:[id number] Age/Sex: 28 / F ADM Date: 01/15/24 Loc: NOMS Attending Dr: Nathan Pop D.O. Ordering Physician: Nathan Pop D.O. Date of Service: 01/15/24 Procedure(s): US pelvis w/ transvaginal Accession Number(s): [id number] cc: Nathan Pop D.O.; Physician,Non-Staff Katherine The [address] [address] Patient Name: JUHI COPE MRN: [facility]:[id number] date: 1995 Sex: F Assigned [facility] Current Patient [facility]: [facility] Accession/Order Number: [id number] Exam Date: 01/15/2024 07:57 Report Date: 01/15/2024 [...] Signed By: 01/15/24 1144 DD/ 1142 TD/TT: System Auditor:ANTHONYHRadiology, Radiologist, - 01/15/[address] [address] Ultrasound Report Signed Patient: JUHI COPE MR#: [id number] : 1995 Acct:[id number] Age/Sex: 28 / F ADM Date: 01/15/24 Loc: NOMS Attending Dr: Nathan Pop D.O. Ordering Physician: Nathan Pop D.O. Date of Service: 01/15/24 Procedure(s): US pelvis w/ transvaginal Accession Number(s): [id number] cc: Nathan Pop D.O.; Physician,Non-Staff M.Mark Anthony [place] [address] Patient Name: JUHI COPE MRN: [id number] date: 1995 Sex: F Assigned Patient Location: [facility] Current Patient Location: [facility] Accession/Order Number: [id number] Exam Date: 01/15/2024 07:57 Report Date: 01/15/2024 [...] Waterman M.D. Signed By: 01/15/24 1144 DD/ 3103 TD/TT: System Auditor: [facility]PITALShalonda HealthcareRadiology Study observation (narrative)[facility] HealthcareUS PELVIS W/ TRANSVAGINALOrdered By: Radiologist Radiology on 41-29-1010ERGM [employer] Work Phone: cNPTanya [phone] (WHQ) JUHI COPE ([id number]) 1995 F Date Time Provider Department 12/12/23 CHARLENE RODRIGUEZ Q During your visit today, we recorded [...] [I10] Encounter Status:Closed by CANDIS GARCES on 12/12/23[facility] 00-02-4929VCKLSbyitd Visit (BASIL) ANATOLIYJUHI ([id number]) 1995 F Date Time Provider Department 12/10/23 10:30 AM CHARLENE RODRIGUEZ During your visit today, we recorded the following information about you: Pulse Blood pressure Weight 98/minute 124/84 68.9 kg Charlene Rodriguez DO 12/10/2023 3:14 PM Signed [facility] SECTION FOR MINIMALLY INVASIVE GYNECOLOGIC SURGERY OUTPATIENT VISIT DATE 12/10/2023 OUTPATIENT VISIT TYPE Follow-up visit PRIMARY CARE PHYSICIAN: Denny Rodríguez [address] [place] [address] REFERRING PHYSICIAN: Self CHIEF COMPLAINT: No chief [...] MRI: no evidence of 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 LMP: 07/08/2023 (Exact Date), Having periods Age at Menarche: 14 Age at First : 27 Age at Menopause: Social Service Director History Comments: Sexual Activity: Never; No partner [...] color, texture (more content not included)...NormalMercy Health Willard Hospitalology Cervical or vaginal smear or scraping studyon 69-33-0628IOTW HealthcareCNPNon 94-10-0048MQRTVnjhmrpoi ([facility]CR[facility]) JUHI COPE ([id number]) 1995 F Date Time Provider Department 08/02/23 CHARLENE RODRIGUEZ [facility] During your visit today, we recorded [...] Signed PA for orilissa completed via [employer]. Juhi Anatoliy (Morales: [id number]) - [id number] Orilissa 150MG tablets Status: Sent To Plan [...] [I10] Encounter Status:Closed by JENIFER LYNN on 08/02/23[facility] 98-62-0808HCEIVrugay Visit (BASIL) JUHI COPE ([id number]) 1995 F Date Time Provider Department 07/16/23 11:30 AM CHARLENE RODRIGUEZ During your visit today, we recorded the following information about you: Blood pressure Last Period 136/90 07/08/23 Charlene Rodriguez DO 07/16/2023 12:41 PM Signed [facility] SECTION FOR MINIMALLY INVASIVE GYNECOLOGIC SURGERY OUTPATIENT VISIT DATE 07/16/2023 OUTPATIENT VISIT TYPE Follow-up visit PRIMARY CARE PHYSICIAN: Denny Rodríguez [address] [place] [address] REFERRING PHYSICIAN: Denny Rodríguez CHIEF COMPLAINT: No [...] additional bowel lesions identified 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 IMPRESSION: No deep infiltrating endometriosis. System Auditor: DAVID Transcribe Date/Time: Jun 12 2023 2:54P Dictated by : ASHLEY DUKE MD This examination was interpreted and the report reviewed and electronically signed by: SONIDO FLAHERTY MD on Jun 12 2023 4:51PM EST [id number] HospitalCNPNon 74-52-4356JVUTZwubawzwc (GYNMN) JUHI COPE ([id number]) 1995 F Date Time Provider Department 05/11/23 CHARLENE RODRIGUEZ GYNVT During your visit today, we recorded the following information about you: [facility]aw[facility] 05/11/2023 1:21 PM Signed Reason for call: [...] Takes aygestin 5mg daily. 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 Encourage to continuous pickling line pickler the flexeril as this will help with the cramping. Reviewed red flag bleeding symptoms that require trip to ER (soaking greater than one overnight pad per hour, chest pain, shortness of breath, fatigue, palpitations).. Advised keep appt. Gives verbal understanding. Appointments for Next 60 Days Date Time Provider Location Dept Phone 05/17/2023 1:00 PM CHARLENE RODRIGUEZ [facility] [phone] Candis Suárez RN Allergies As of Date: 05/11/2023 (No Known Allergies) Date Reviewed: 05/09/2023 Reviewed by: Jihan Downs APRN.ENGLISH DRAWER - Fully Assessed Reason for Visit: Vaginal [...] [I10] Encounter Status:Closed by CANDIS WILLINGHAM on 05/11/23[facility] 39-99-4855KIVQEkjjqj Visit [facility] ANATOLIYFLAVIOJUHI ([id number]) 1995 F Date Time Provider Department 05/01/23 10:30 AM JIHAN DOWNS JA During your visit today, we recorded the following information about you: Blood pressure Weight Height Last Period 148/64 64.9 kg 1.575 m 04/22/23 Jihan Downs APRN.ENGLISH DRAWER 05/09/2023 11:46 AM Signed Juhi Cope is a 28 year old female who presents for problem visit for pain HPI: Pain is week before period and week of period. Worse on her period for every day she's bleeding Urinary - No symptoms GI - Always constipated. No meds [place] - painful always Pain is on left side and goes to the back. Whole lower back. Sometimes on right but not very often. No concerns No falls, car accidents, scoliosis. No trauma history Endo. 2 lap - 2017, 2021 - pain improved after surgery In the past Aygestin had helped No Pelvic floor physical therapy. Dr Rodriguez recommend but hasn't been able to go. Tore with delivery but doesn't think it was bad. Here with a friend and her baby. They are present for the entire exam OB History T0 L0 SAB0 IAB0 Ectopic0 Multiple0 Live Births0 Social Service Director History LMP: 03/26/2023 (Approximate), Having periods Age at Menarche: Age at First : Age at Menopause: Social Service Director History Comments: Sexual Activity: Never; No partner [...] physical therapy - or can go locally [employer] Trial flexeril at bedtime Can consider Baclofen [...] physical therapy - or can go locally [employer] Trial flexeril at bedtime Can consider Baclofen suppositories - let me know if you want to trial after you go to PT Contin (more content not included)...NormalPeoples HospitalCHEMISTRY Ordered By: SYSTEM SYSTEM on 71-77-5992Dpeainq [Mass/Vol]4.3 g/dLNormal3.3 - 5.0 gm/dLFTMC RemisolAlbumin/Globulin [Mass ratio]1.2 {ratio}Normal1.1 - 2.2FTMC RemisolALP [...] [Mass/Vol]8.8 mg/dLLow8.9 - 11.1 mg/dLFTMC RemisolChloride [Moles/Vol]100 mmol/FVdf753 - 111 mmol/LFTMC RemisolCO2 [Moles/Vol]24 mmol/L Xtzfck38 - 31 mmol/LFTMC RemisolCreatinine [Mass/Vol]1.0 mg/dLNormal0.5 - 1.3 mg/dLFTMC RemisolGFR/1.73 sq M.predicted among blacks MDRD (S/P/Bld) [Vol rate/Area]mL/min/1.73 w7Wtyyvh>=59mL/min/1.73 m2[facility] Chem SGFR/1.73 sq M.predicted among non-blacks MDRD (S/P/Bld) [Vol rate/Area]mL/min/1.73 b1Ukgrks >=59mL/min/1.73 m2[facility] Chem SGlobulin (S) [Mass/Vol]3.6 g/dLNormal1.4 - 4.0 gm/dLFTMC RemisolGlucose [Mass/Vol]104 mg/lHHxniwl84 - 199 mg/dLFTMC Remisol Potassium [Moles/Vol]3.6 mmol/LNormal3.5 - 5.3 mmol/LFTMC RemisolProtein [Mass/Vol]7.9 g/dLHigh6.0 - 7.8 gm/dLFTMC RemisolSodium [Moles/Vol]134 mmol/LLow 135 - 145 mmol/LFTMC RemisolUrea nitrogen [Mass/Vol]10 mg/dLNormal5 - 21 mg/dL [facility] RemisolUrea nitrogen/Creatinine [Mass ratio]10 mg/soGlcvdy97 - 20FT[facility] RemisolHEMATOLOGYOrdered By: Amairani Jenkins on 66-94-4139Frevmwqasvrb Ql (Bld) Present (01/31/23 2:10 PM)NormalFTMC HemeManSSErythrocyte [...] fLNormal6.4 - 10.8 fLFTMC HemeAutoSSPlatelets (Bld) [#/Vol]471.0 E9/NGicjvh866.0 - 500.0 E9/LFTMC HemeAutoSSRBC (Bld) [#/Vol]4.3 E12/LNormal4.3 [...] - 0.5 E9/L [facility] HemeAutoSSLymphocytes/100 WBC (Bld)31.7 %Wstgmc05.0 - 50.0 %[facility] HemeAutoSS Lymphocytes/Leukocytes Auto (Bld) [Pure # fraction]2.4 E9/LNormal1.0 - 4.0 E9/L [facility] HemeAutoSSMonocytes/100 WBC (Bld)9.1 %Normal4.0 - 14.0 %[facility] HemeAutoSS Monocytes/Leukocytes Auto (Bld) [Pure # fraction]0.7 E9/LNormal0.2 - 1.0 E9/L [facility] HemeAutoSSNeutrophils/100 WBC (Bld)57.4 %Cewife24.0 - 75.0 %[facility] HemeAutoSS Neutrophils/Leukocytes Auto (Bld) [Pure # fraction]4.3 E9/LNormal2.0 - 7.5 E9/L [facility] HemeAutoSSSEROLOGYOrdered By: Patricia Newton on 87-50-4370UCP.beta subunit (U) [Moles/Vol]NegativeNormalFTMC Man SeroURINALYSISOrdered By: Solomon Leal on 56-94-5642Jxoksstvu Ql (U)Negative (01/31/23 1:57 PM)NormalNegativeFTMC UA Auto SSClarity (U)Clear (01/31/23 1:57 PM)NormalClearFTMC UA Auto SSColor (U)Yellow (01/31/23 1:57 PM)NormalYellowFTMC UA Auto SSEpithelial cells.squamous LM.HPF (Urine sed) [#/Area]3-4 /HPFNormal0-2/HPFFTMC UA Auto SSGlucose Test strip (U) [Mass/Vol]Negative (01/31/23 1:57 PM)NormalNegativeFT UA Auto SSHemoglobin Ql (U)Negative (01/31/23 1:57 PM)NormalNegativeFTMC UA Auto SSKetones (U) [Mass/Vol]Negative (01/31/23 1:57 PM)NormalNegative[facility] [place] Auto SSLithium.plasma/Selfridge.RBC (Bld) [Mass ratio]0-3 /HPFNormal0-3/HPFFTMC UA Auto SSNitrite Ql (U)Negative (01/31/23 1:57 PM)NormalNegativeALL[facility] [place] Auto SSpH (U)6.0 *NA* (01/31/23 1:57 PM)Invalid Interpretation Code5.0 - 9.0[facility] [place] Auto SSProtein (U) [Mass/Vol]Negative (01/31/23 1:57 PM)NormalNegativeALL[facility] [place] Auto SSSpecific gravity (U) [Rel density] 1.010 *NA* (01/31/23 1:57 PM)Invalid Interpretation Code1.005 - 1.030[facility] [place] Auto SSUA Spec DescClean Catch (01/31/23 1:57 PM)NormalALL[facility] [place] Auto SSUrobilinogen Qn (U)0.6567715 {Aspen'U}/dL Normal0.0 - 1.0 EU/dLALLI[facility]HE[facility] [place] [place] [facility] [place] Auto SSWBC Auto Ql (U)Negative (01/31/23 1:57 PM)NormalNegativeALL[facility] [place] Auto SSWBC LM.HPF (Urine sed) [#/Area]0-5 /HPFNormal0-5/HPFFTMC UA Auto SSBLOOD BANKOrdered By: Teena Quiroz on 37-84-8996DMM/Rh InterpPositiveInvalid Interpretation CodeALL[facility]ANCEHE[facility] [place] BB SubsectionABSC Gel InterpNegative (12/30/22 11:28 AM)NormalALL[facility] [place] BB SubsectionCHEMISTRYOrdered By: SYSTEM SYSTEM on 93-76-4626Rxwkg gap [Moles/Vol]12 mmol/LNormal6 - 16 mEq/LFTMC RemisolCalcium [Mass/Vol]8.6 mg/dLLow8.9 - 11.1 mg/dLFTMC RemisolChloride [Moles/Vol]103 mmol/L Roiypl124 - 111 mmol/LFTMC RemisolCO2 [Moles/Vol]26 mmol/XDvpjjt57 - 31 mmol/L [facility] RemisolCreatinine [Mass/Vol]0.9 mg/dLNormal0.5 - 1.3 mg/dLFTMC Remisol GFR/1.73 sq M.predicted among blacks MDRD (S/P/Bld) [Vol rate/Area]mL/min/1.73 t6Fpsdsc>=59mL/min/1.73 m2FT Chem SGFR/1.73 sq M.predicted among non-blacks MDRD (S/P/Bld) [Vol rate/Area]mL/min/1.73 p8Zyfoko>=59mL/min/1.73 m2FT Chem S Glucose [Mass/Vol]105 mg/pIFdhyqk01 - 199 mg/dLFTMC RemisolPotassium [Moles/Vol] 3.8 mmol/LNormal3.5 - 5.3 mmol/LFTMC RemisolSodium [Moles/Vol]137 mmol/LNormal 135 - 145 mmol/LFTMC RemisolUrea nitrogen [Mass/Vol]17 mg/dLNormal5 - 21 mg/dL [facility] RemisolUrea nitrogen/Creatinine [Mass ratio]19 mg/biKadxjy98 - 20[facility] RemisolCOAGULATIONOrdered By: Courtney Case on 30-24-5354vSZP Coag (PPP) [Time]31.5 lKcrnck50.1 - 36.5 second(s)[facility] Auto CoagINR Coag (PPP) [Relative time]1.0 {INR}Invalid Interpretation CodeFTMC Auto CoagPT Coag (PPP) [Time]11.7 sNormal 9.4 - 12.5 second(s)[facility] Auto CoagHEMATOLOGYOrdered By: SYSTEM SYSTEM on 72-75-8564Jyaauetcl/100 WBC (Bld)1.2 %Normal0.0 - 2.0 %[facility] HemeAutoSS Basophils/Leukocytes Auto (Bld) [Pure # fraction]0.1 E9/LNormal0.0 - 0.2 E9/L [facility] HemeAutoSSEosinophils/100 WBC (Bld)4.1 %Normal0.0 - 8.0 %[facility] HemeAutoSS Eosinophils/Leukocytes Auto (Bld) [Pure # fraction]0.2 E9/LNormal0.0 - 0.5 E9/L [facility] HemeAutoSSLymphocytes/100 WBC (Bld)40.5 %Tduvau00.0 - 50.0 %[facility] HemeAutoSS Lymphocytes/Leukocytes Auto (Bld) [Pure # fraction]2.3 E9/LNormal1.0 - 4.0 E9/L [facility] HemeAutoSSMonocytes/100 WBC (Bld)7.6 %Normal4.0 - 14.0 %[facility] HemeAutoSS Monocytes/Leukocytes Auto (Bld) [Pure # fraction]0.4 E9/LNormal0.2 - 1.0 E9/L [facility] HemeAutoSSNeutrophils/100 WBC (Bld)46.6 %Aholyo59.0 - 75.0 %[facility] HemeAutoSS Neutrophils/Leukocytes Auto (Bld) [Pure # fraction]2.6 E9/LNormal2.0 - 7.5 E9/L [facility] HemeAutoSSHEMATOLOGYOrdered By: Courtney Case on 64-71-9562Vscdkijdfum distribution width (RBC) [Ratio]14.1 %Evujxs46.9 - 14.2 %[facility] HemeAutoSS Hematocrit (Bld) [Volume fraction]31.5 %Low34.0 - 46.0 %[facility] HemeAutoSS Hemoglobin (Bld) [Mass/Vol]10.0 g/dLLow12.0 - 16.0 gm/dLFTMC HemeAutoSSMCH (RBC) [Entitic mass]25.3 pgLow27.0 - 34.0 pgFTMC HemeAutoSSMCHC (RBC) [Mass/Vol]31.8 g/wQNuwecx51.4 - 36.0 gm/dLFTMC HemeAutoSSMCV (RBC) [Entitic vol]79.6 fLLow80.0 - 100.0 fLFTMC HemeAutoSSPlatelet mean volume (Bld) [Entitic vol]7.7 fLNormal6.4 - 10.8 fLFTMC HemeAutoSSPlatelets (Bld) [#/Vol]264.0 E9/IOfakpv961.0 - 500.0 E9/[facility] HemeAutoSSRBC (Bld) [#/Vol]4.0 E12/LLow4.3 - 5.9 E12/[facility] HemeAutoSS WBC corrected for nucl RBC Auto (Bld) [#/Vol]5.7 E9/LNormal4.0 - 11.0 E9/[facility] HemeAutoSSURINALYSISOrdered By: Courtney Case on 03-22-6534Gcqzcmsc LM Ql (Urine sed)Trace /HPFNormalTrace/HPFFTMC UA Auto SSBilirubin Ql (U)Negative (12/30/22 8:53 AM)NormalNegativeALL[facility] [place] [facility] [place] Auto SSClarity (U)Clear (12/30/22 8:53 AM)NormalClearFC UA Auto SSColor (U)Yellow (12/30/22 8:53 AM)NormalYellowFT UA Auto SSEpithelial cells.squamous LM.HPF (Urine sed) [#/Area]0-2 /HPFNormal0-2/HPFFTMC UA Auto SSGlucose Test strip (U) [Mass/Vol]Negative (12/30/22 8:53 AM)NormalNegativeALL[facility] [place] Auto SSHemoglobin Ql (U)2+ *ABN* (12/30/22 8:53 AM)Invalid Interpretation CodeNegativeFT UA Auto SSKetones (U) [Mass/Vol]Negative (12/30/22 8:53 AM)NormalNegativeALL[facility] [place] [facility] [place] Auto SSLithium.plasma/Selfridge.RBC (Bld) [Mass ratio]4-20 /HPFNormal0-3/HPFFTMC UA Auto SSNitrite Ql (U)Negative (12/30/22 8:53 AM)NormalNegativeALL[facility] [place] [facility] [place] Auto SSpH (U)6.0 *NA* (12/30/22 8:53 AM)Invalid Interpretation Code5.0 - 9.0FT UA Auto SSProtein (U) [Mass/Vol]Negative (12/30/22 8:53 AM)NormalNegativeALL[facility] [place] Auto SSSpecific gravity (U) [Rel density] 1.025 *NA* (12/30/22 8:53 AM)Invalid Interpretation Code1.005 - 1.030FT UA Auto SSUA Spec DescClean Catch (12/30/22 8:53 AM)NormalALL[facility] [place] Auto SSUrobilinogen Qn (U)0.0326968 {Aspen'U}/dL Normal0.0 - 1.0 EU/dLALLIANCEHE[facility] [place] [facility] [place] Auto SSWBC Auto Ql (U)Negative (12/30/22 8:53 AM)NormalNegativeALL[facility] [place] [facility] [place] Auto SSWBC LM.HPF (Urine sed) [#/Area]0-5 /HPFNormal0-5/HPFALLIANCEHE[facility] [place] Auto SSOffice Visiton 79-34-4049Ksqmim-up [id number] Flavio Copeis 1995 F Date Provider Department Center 12/05/2022 [id number], GINA [facility] W[facility] None Chart Close Cosign Required by: Opal Ross MD[VARUND] No family history on file Level of Service:48988 [facility] OFFICE/OUTPATIENT ESTABLISHED LOW MDM 20-29 MIN (GE,GC) Reason for Visit and Comments: Blood Pressure Check [299][facility] SHSProgress Noteon 62-77-8010Dqotgkyk Note Attestation signed by Opal Ross MD at 12/05/2022 3:19 PM [facility]: This patient was seen in the [...] about 4 weeks (around 01/02/2023) for Visit .[facility] SHSProgress NoteVital signs BP 127/87 Weight 149.2lb Pulse 106 Temp 96.7No[facility] SHSProgress Noteon 50-15-6043Qkngvixl Note Late entry due to patient care. Resident Diallo notified of B.P 138/96 heart rate 119 around 1236 see flowsheet. Also notified checked in 1 hour via orders and B.P 143/87 pulse 111. Clarified if should check in 1 hour according to orders. . Also notified patient has discharge order in. Resident Diallo states No on rechecking. Ok to discharge. Will make patient aware.[facility] SHSProgress NotePOSTPARTUM VAGINAL DELIVERY POST DAY [...] (homozygous), FVL+Prothrombin (heterozygous), Antithrombin III, APLS Assessment/Plan: Juih Cope is PPD # 2 s/p Care [...] Name: DO Vanessa Zambrano DO 12/02/2022, 5:09 [facility]42on 70-62-17056523.5mm flanges given to patient. Encouraged her to call for observation of pump session and smaller flanges. Martha in NICU to assist with personal pump.Normal [facility] HospitalCARECOORDon 50-05-3294CUSKHONEV56 year old admitted for induction of labor [...] to home. Denies any concerns at this time.[facility] SHSProgress Noteon 24-98-1639Yygnagon Note NOTE - VAGINAL DELIVERY POST DAY [...] with more than 50% of the total jydi-ol-lkkf time of the visit in counseling/coordination of care. , 9:22 [facility] MDE94dj 36-66-157943Uwrdm given to patient and educated how to use and to bring to [facility] IOL32Rsufnu pump use indicated for this pt. Due to: infant in [facility] Hospital breast pump, supplies kit, [...] to check with LC in [facility] for smaller flange sizesUnity Medical CenterLabor and Delivery Noteon 77-27-8350Gzrwp and Delivery Note Attestation with edits by [...] PreEwSF Post-operative Diagnosis: Live Born female Delivering Bio Medical Technician & Hospital Medicine Director(s): Dr. Bowden; Dr. Kramer Information: Information for the patient's : Francie Cope [[id number]] Information for the patient's : Francie Cope [[id number]] Description: normal Meconium Noted: No Anesthesia: epidural [...] for: RUBELLAIGG Irina Kramer, DO 11/30/2022, 4:04 AMN SHSProgress Noteon 97-44-6365Bunznsma NoteFoley catheter inserted by Andi Bacon RN, catheter drained and emptied for 900cc. Catheter secured to leg.[facility] SHSProgress NotePatient up to bathroom but remains unable to void. Bladder scan completed and reads >570. Sent secure message to Dr. Ruiz letting her know the above. Instructed to place chauhan catheter.[facility] SHSProgress Note Secure message sent to Dr. Gamez stating patient is having difficulty voiding, patient's perineum is very swollen, and that patient was straight cathed for 950ml at noon. Received order for benadryl to help with swelling. [facility] SHSProgress NoteNutrition rescreen completed. Chart reviewed. Patient to be monitored and followed by the diet guitar repair technician. Suad Samuels, CRISSMonroe Community Hospital SHSProgress NotePatient unable to void, last straight cathed at 0400. Bladder scan obtained for >928 ml, fundus +2 and shifted to right. Patient straight cathed on attempt x2 by Andi Bacon RN for 950cc. Will continue to monitor.[facility] SHSCAREPLNon 11-03-3514FPWBAPPFgj patient will continue to make cervical change. Clotilde Mg, RNMonroe Community Hospital SHSLaboratory - Hematology and Cell countsOrdered By: Lucrecia Cervantes on 22-97-5711Rsnfxikva (Bld) [#/Vol]386 10*3/uL140 - 440 10*3/uLSumma HealthPlatelets (Bld) [#/Vol]Ordered By: Lucrecia Cervantes on 10-85-2937Nfudquyagxhbuk and review of laboratory resultsNormal [facility] HealthS. agalactiae DNA TENA+probe Ql (Unsp spec)on 11-29-2022 Group B Strep ScreenNot detectedNot DetectedMarietta Osteopathic Clinic HealthInterpretation and review of laboratory resultsNoProMedica Flower HospitalMethodology: real-time PCRSumMount Carmel Health System HealthABO and Rh group Confirm Nom (Bld)on [id number] group Nom (Bld)OSumma HealthD Ag Ql (RBC)PositiveSMercyOne Dyersville Medical CenterBlood type and Crossmatch panel (Bld)on 44-00-1206TJR group Nom (Bld)OShighland district hospital HealthBlood group antibody screen GEL QlNegativeSumpa HealthD Ag Ql (RBC)PositiveSFort [facility] HealthCBC panel Auto (Bld)Ordered By: Lauren Ayers on 04-50-5510Fhrokffqvvb distribution width (RBC) [Ratio]13.3 %11.5 - 14.5 %[facility] Hospitala HealthHematocrit (Bld) [Volume fraction]33.8 %Low35.0 - 47.0 %[facility] HealthHemoglobin (Bld) [Mass/Vol] 11.2 g/dLLow11.7 - 16.0 g/dLSumpa HealthInterpretation and review of laboratory resultsAbnormalSHolzer HospitalH (RBC) [Entitic mass]28.0 pg26.0 - 34.0 pgSHolzer HospitalHC (RBC) [Mass/Vol]33.1 %32.0 - 36.0 %Mckitrick HospitalMCV (RBC) [Entitic vol]84.4 fL80.0 - 98.0 fLMarietta Osteopathic Clinic HealthPlatelet mean volume (Bld) [Entitic vol]8.3 fL7.4 - 12.4 fLmma HealthPlatelets (Bld) [#/Vol]319 10*3/uL140 - 440 10*3/uL Summa HealthRBC (Bld) [#/Vol]4.00 10*6/uL3.8 - 5.20 10*6/uLSumma HealthWBC (Bld) [#/Vol]18.9 10*3/uLHigh3.6 - 10.7 10*3/uLSumma HealthSumma HealthComprehensive metabolic 1998 panelon 82-66-0606Tkwofph [Mass/Vol]3.9 g/dL3.5 - 5.0 g/dLSumma HealthALP [Catalytic [...] HealthGFR/1.73 sq M.predicted MDRD (S/P/Bld) [Vol rate/Area]- [facility] HospitalComment on above: Calculation based on the Chronic Kidney Disease Epidemiology Collaboration (CKD- EPI) equation refitwithout adjustment for raceGlucose [Mass/Vol]158 mg/wGMjae40 - 100 mg/dLSumma HealthInterpretation and review of laboratory resultsAbnormal Summa HealthPotassium [Moles/Vol]4.1 mmol/L3.5 - 5.1 mmol/LSumma HealthProtein [Mass/Vol]7.5 g/dL6.3 - 8.2 g/dLSumma HealthSodium [Moles/Vol]133 mmol/ISyr604 - 145 mmol/LSumma HealthUrea nitrogen [Mass/Vol]5 mg/dLLow7 - 17 mg/dLSumma HealthSumma HealthLaboratory - Hematology and Cell countsOrdered By: Shruthi Fontana on 44-63-0749Omvxrgzwf (Bld) [#/Vol]335 10*3/uL140 - 440 10*3/uLSumma HealthPlatelets (Bld) [#/Vol]Ordered By: Shruthi Fontana on 11-28-2022 Interpretation and review of laboratory resultsNoHancock County Health System CHEMISTRYOrdered By: SYSTEM SYSTEM on 32-40-0851Advm T4 index Calc [Mass/Vol] 5.98 ng/dLNormal5.90 - [...] Code0.1 - 0.9 mg/dL [facility] RemisolChloride [Moles/Vol]102 mmol/XCniilx478 - 111 mmol/LFTMC RemisolCO2 [Moles/Vol]18 mmol/LLow21 - 31 mmol/LFTMC RemisolCreatinine [Mass/Vol]0.6 mg/dL Normal0.5 - 1.3 mg/dLFTMC RemisolGFR/1.73 sq M.predicted among blacks MDRD (S/P/Bld) [Vol rate/Area]mL/min/1.73 k7Vhelei>=59mL/min/1.73 m2FT Chem S GFR/1.73 sq M.predicted among non-blacks MDRD (S/P/Bld) [Vol rate/Area] mL/min/1.73 l6Achtlx>=59mL/min/1.73 m2FT Chem SGlobulin (S) [Mass/Vol]4.0 g/dL Normal1.4 - 4.0 gm/dLFTMC RemisolPotassium [Moles/Vol]3.7 mmol/LNormal3.5 - 5.3 mmol/LFTMC RemisolProtein [Mass/Vol]7.1 g/dLNormal6.0 - 7.8 gm/dLFT Remisol Sodium [Moles/Vol]132 mmol/SMpq544 - 145 mmol/LFTMC RemisolUrate [Mass/Vol]4.9 mg/dLNormal2.2 - 7.4 mg/dLFTMC RemisolUrea nitrogen [Mass/Vol]7 mg/dLNormal5 - 21 mg/dLALL[facility]HE[facility] [place] RemisolCOAGULATIONOrdered By: Amairani Jenkins on 38-28-9585sEGF Coag (PPP) [Time]25.3 tZeudpa09.1 - 36.5 second(s)[facility] [place] Auto Coag Fibrin+Fibrinogen fragments (S) [Mass/Vol]>10 and <40 *ABN* (11/27/22 3:14 PM)Invalid Interpretation Code<10[facility] [place] Man SeroFibrinogen Coag (PPP) [Mass/Vol]539 mg/xHExyq640 - 393 mg/dLALLIANCEHEALTH [place] [facility] [place] Auto CoagINR Coag (PPP) [Relative time]0.9 {INR}Invalid Interpretation CodeALLIANCEHEALTH [place] [facility] [place] Auto CoagPT Coag (PPP) [Time]10.1 sNormal9.4 - 12.5 second(s)[facility] [place] Auto CoagHEMATOLOGYOrdered By: Raquel Arteaga on 22-48-1016Mengdlslmxv distribution width (RBC) [Ratio]12.9 %Wlgizq06.9 - 14.2 % [facility] HemeAutoSSHematocrit (Bld) [Volume fraction]34.2 %Bzqguw88.0 - 46.0 %[facility] HemeAutoSSHemoglobin (Bld) [Mass/Vol]11.0 g/dLLow12.0 - 16.0 gm/dLFTMC HemeAutoSSMCH (RBC) [Entitic mass]27.3 ygLoinme35.0 - 34.0 pgFTMC HemeAutoSSMCHC (RBC) [Mass/Vol]32.3 g/uVOsldcs79.4 - 36.0 gm/dLFTMC HemeAutoSSMCV (RBC) [Entitic vol]84.6 lRUjsabg17.0 - 100.0 fLFTMC HemeAutoSSPlatelet mean volume (Bld) [Entitic vol]8.2 fLNormal6.4 - 10.8 fLFTMC HemeAutoSSPlatelets (Bld) [#/Vol]273.0 E9/OIytkxd505.0 - 500.0 E9/LFTMC HemeAutoSSRBC (Bld) [#/Vol]4.0 E12/LLow4.3 - 5.9 E12/LFTMC HemeAutoSSWBC corrected for nucl RBC Auto (Bld) [#/Vol]15.7 E9/LHigh4.0 - 11.0 E9/LFTMC HemeAutoSSComment on above:Result Comment: Slide reviewed by ts Unable to obtain accurate platelet count due to platelet clumping. Platelet count estimate appears normal on slide..URINALYSISOrdered By: Amairani Jenkins on 86-69-3211Ijwlliuxs Ql (U)Negative (11/27/22 1:55 PM)NormalNegativeFTMC UA Auto SSClarity (U)Clear (11/27/22 1:55 PM)NormalClearFTMC UA Auto SSColor (U)Yellow (11/27/22 1:55 PM)NormalYellowFTMC UA Auto SSEpithelial cells.squamous LM.HPF (Urine sed) [#/Area]3-4 /HPFNormal0-2/HPFFT UA Auto SSGlucose Test strip (U) [Mass/Vol]Negative (11/27/22 1:55 PM)NormalNegativeALL[facility] [place] Auto SSHemoglobin Ql (U)1+ *ABN* (11/27/22 1:55 PM)Invalid Interpretation CodeNegativeALL[facility] [place] [facility] [place] Auto SSKetones (U) [Mass/Vol]Negative (11/27/22 1:55 PM)NormalNegativeALL[facility] [place] [facility] [place]A Auto SSLithium.plasma/Selfridge.RBC (Bld) [Mass ratio]4-20 /HPFNormal0-3/HPFALLIANCEHEALTH [facility] [place] [facility] [place] Auto SSNitrite Ql (U)Negative (11/27/22 1:55 PM)NormalNegativeALL[facility] [place] [facility] [place] [facility] Auto SSpH (U)6.5 *NA* (11/27/22 1:55 PM)Invalid Interpretation Code5.0 - 9.0[facility] [place] [facility] [place] Auto SSProtein (U) [Mass/Vol]Negative (11/27/22 1:55 PM)NormalNegativeALL[facility] [facility] [place] Auto SSSpecific gravity (U) [Rel density] 1.010 *NA* (11/27/22 1:55 PM)Invalid Interpretation Code1.005 - 1.030[facility] [place] Auto SSUA Spec DescClean Catch (11/27/22 1:55 PM)NormalALLI[facility]HEALTH [facility] [place] [facility] [place] Auto SSUrobilinogen Qn (U)0.5599504 {Aspen'U}/dL Normal0.0 - 1.0 EU/dLALLIANCEHEALTH [place] [facility] [place] Auto SSWBC Auto Ql (U)Negative (11/27/22 1:55 PM)NormalNegativeALL[facility] [place] [facility] [place] Auto SSWBC LM.HPF (Urine sed) [#/Area]0-5 /HPFNormal0-5/HPFFT UA Auto SSCHEMISTRYOrdered By: SYSTEM SYSTEM on 07-14-2022 Albumin [Mass/Vol]3.6 g/dLNormal3.3 - 5.0 gm/dLALLIANCEHE[facility] [place] RemisolAlbumin/Globulin [Mass ratio]1.1 {ratio}Normal1.1 - 2.2FT[facility] RemisolALP [Catalytic activity/Vol]41 [iU]/oFqgiht50 - 98 Int._Unit/LFTMC RemisolALT No additional P-5'-P [Catalytic activity/Vol]19 [iU]/dNormal6 - 46 Int._Unit/LFTMC RemisolAnion gap [Moles/Vol] 11 mmol/LNormal6 - 16 mEq/LFTMC RemisolAST [Catalytic activity/Vol]21 [iU]/d Normal5 - 43 Int._Unit/LFTMC RemisolBilirubin [Mass/Vol]0.7 mg/dLNormal0.0 - 1.1 mg/dLFTMC RemisolBilirubin.direct [Mass/Vol]0.1 mg/dLNormal0.1 - 0.4 mg/dLFTMC RemisolBilirubin.indirect [Mass or moles/Vol]0.6 mg/dLNormal0.1 - 0.9 mg/dLFTMC RemisolCalcium [Mass/Vol]8.9 mg/dLNormal8.9 - 11.1 mg/dLFTMC RemisolChloride [Moles/Vol]107 mmol/CUmylxy409 - 111 mmol/LFTMC RemisolCO2 [Moles/Vol]22 mmol/L Ybxrxy00 - 31 mmol/LFTMC RemisolCreatinine [Mass/Vol]0.6 mg/dLNormal0.5 - 1.3 mg/dLFTMC RemisolGFR/1.73 sq M.predicted among blacks MDRD (S/P/Bld) [Vol rate/Area]mL/min/1.73 v6Yuyidl>=59mL/min/1.73 m2FT[facility] Chem SGFR/1.73 sq M.predicted among non-blacks MDRD (S/P/Bld) [Vol rate/Area]mL/min/1.73 q0Eagdax >=59mL/min/1.73 m2[facility] Chem SGlobulin (S) [Mass/Vol]3.3 g/dLNormal1.4 - 4.0 gm/dLFTMC RemisolGlucose [Mass/Vol]99 mg/pIKirkok43 - 199 mg/dLFTMC Remisol Potassium [Moles/Vol]3.5 mmol/LNormal3.5 - 5.3 mmol/LFTMC RemisolProtein [Mass/Vol]6.9 g/dLNormal6.0 - 7.8 gm/dLFTMC RemisolSodium [Moles/Vol]136 mmol/L Frbhoz941 - 145 mmol/LFTMC RemisolUrea nitrogen [Mass/Vol]8 mg/dLNormal5 - 21 mg/dLFTMC RemisolUrea nitrogen/Creatinine [Mass ratio]13 mg/kcHnlcbm11 - 20[facility] RemisolHEMATOLOGYOrdered By: SYSTEM SYSTEM on [id number]/100 WBC (Bld) 0.3 %Normal0.0 - 2.0 %[facility] [...] 7.5 E9/LFTMC HemeAutoSSHEMATOLOGYOrdered By: Teena Quiroz on [id number] distribution width (RBC) [Ratio]12.9 %Normal 10.9 - 14.2 %[facility] HemeAutoSSHematocrit (Bld) [Volume fraction]33.6 %Low34.0 - 46.0 %[facility] HemeAutoSSHemoglobin (Bld) [Mass/Vol]11.5 g/dLLow12.0 - 16.0 gm/dL [facility] [place] HemeAutoSSMCH (RBC) [Entitic mass]28.5 vbPvufyf35.0 - 34.0 [place] HemeAutoSSMCHC (RBC) [Mass/Vol]34.1 g/vERjerpl39.4 - 36.0 gm/dLFT HemeAutoSS MCV (RBC) [Entitic vol]83.5 sVXeyoaz70.0 - 100.0 fL[place] [place] HemeAutoSSPlatelet mean volume (Bld) [Entitic vol]8.1 fLNormal6.4 - 10.8 fL[facility] [place] HemeAutoSSPlatelets (Bld) [#/Vol]271.0 E9/NEuytjy583.0 - 500.0 E9/[facility] HemeAutoSSRBC (Bld) [#/Vol] 4.0 E12/LLow4.3 - 5.9 E12/[facility] HemeAutoSSWBC corrected for nucl RBC Auto (Bld) [#/Vol]13.9 E9/LHigh4.0 - 11.0 E9/[facility] HemeAutoSSURINALYSISOrdered By: Deirdre Gilliam on [id number] LM Ql (Urine sed)Trace /HPFNormalTrace/HPFALL[facility] [place] Auto SSBilirubin Ql (U)Negative (07/14/22 5:00 AM)NormalNegativeALL[facility] [place] [place] Auto SSClarity (U)Clear (07/14/22 5:00 AM)NormalClearFPOST [facility] [place] [place] SSColor (U)Yellow (07/14/22 5:00 AM)NormalYellowALLIANCEHEALTH [place] Auto SSEpithelial cells.squamous LM.HPF (Urine sed) [#/Area]3-4 /HPFNormal0-2/HPFFT UA Auto SSGlucose Test strip (U) [Mass/Vol]Negative (07/14/22 5:00 AM)NormalNegativeALL[facility] [place] Auto SSHemoglobin Ql (U)Trace *ABN* (07/14/22 5:00 AM)Invalid Interpretation CodeNegativeALL[facility] [place] Auto SSKetones (U) [Mass/Vol]Negative (07/14/22 5:00 AM)NormalNegativeALL[facility] [place] Auto SSLithium.plasma/[place].RBC (Bld) [Mass ratio]0-3 /HPFNormal0-3/HPFALL[facility]HE[facility] [place] Auto SSMucus Ql (Urine sed)Trace (07/14/22 5:00 AM)NormalALL[facility] [place] Auto SSNitrite Ql (U)Negative (07/14/22 5:00 AM)NormalNegativeALL[facility] [place] Auto SSpH (U)6.0 *NA* (07/14/22 5:00 AM)Invalid Interpretation Code5.0 - 9.0[facility] [place] Auto SSProtein (U) [Mass/Vol]Negative (07/14/22 5:00 AM)NormalNegativeALL[facility] [place] Auto SSSpecific gravity (U) [Rel density] 1.020 *NA* (07/14/22 5:00 AM)Invalid Interpretation Code1.005 - 1.030[facility] [place] Auto SSUA Spec DescClean Catch (07/14/22 5:00 AM)NormalALL[facility]ANCEHE[facility] [place] Auto SSUrobilinogen Qn (U)[id number] {[place]'U}/dLNormal0.0 - 1.0 EU/dLALLI[facility] [place] Auto SSWBC Auto Ql (U)Negative (07/14/22 5:00 AM)NormalNegativeALL[facility]ANCEHE[facility] [place] Auto SSWBC LM.HPF (Urine sed) [#/Area]0-5 /HPFNormal0-5/HPFALLIANCEHEALTH [place] Auto SSCHEMISTRYOrdered By: SYSTEM SYSTEM on 11-94-5330Hoyshbv [Mass/Vol]4.4 g/dLNormal3.3 - 5.0 gm/dLALLIANCEHE[facility] [place] Remisol Albumin/Globulin [Mass ratio]1.1 {ratio}Normal1.1 - 2.2[facility] RemisolALP [Catalytic activity/Vol]64 [iU]/xZfutui12 - 98 Int._Unit/LFTMC RemisolALT No additional P-5'-P [Catalytic activity/Vol]107 [iU]/dHigh6 - 46 Int._Unit/L[facility] RemisolAST [Catalytic activity/Vol]63 [iU]/dHigh5 - 43 Int._Unit/L[facility] Remisol Bilirubin [Mass/Vol]1.5 mg/dLHigh0.0 - 1.1 mg/dLFTMC RemisolBilirubin.direct [Mass/Vol]0.2 mg/dLNormal0.1 - 0.4 mg/dLFTMC RemisolBilirubin.indirect [Mass or moles/Vol]1.3 mg/dLHigh0.1 - 0.9 mg/dLFT[facility] RemisolCholesterol [Mass/Vol]193 mg/bPNbjfvw519 - 200 mg/dLFT[facility] RemisolCholesterol in HDL [Mass/Vol]64 mg/dL Invalid Interpretation CodeFT[facility] RemisolCholesterol in LDL [Mass/Vol]116 mg/dL Normal<=129mg/dLFT[facility] RemisolCholesterol in VLDL [Mass/Vol]13 mg/dLNormal7 - 40 mg/dLFT[facility] RemisolGlobulin (S) [Mass/Vol]3.9 g/dLNormal1.4 - 4.0 gm/dLFT[facility] RemisolProtein [Mass/Vol]8.3 g/dLHigh6.0 - 7.8 gm/dLFT[facility] RemisolTriglyceride [Mass/Vol]67 mg/dLNormal<=149mg/dLFT[facility] RemisolCOAGULATIONOrdered By: Courtney Case on 88-34-3129CRR Coag (PPP) [Relative time]1.0 {INR}Invalid Interpretation Code [facility] Auto CoagPT Coag (PPP) [Time]12.4 oYfjgii24.2 - 12.9 second(s)[facility] Auto CoagHEMATOLOGYOrdered By: SYSTEM SYSTEM on 66-45-3367Wovyuetzv/100 WBC (Bld)0.7 %Normal0.0 - 2.0 %[facility] HemeAutoSSBasophils/Leukocytes Auto (Bld) [Pure # fraction]0.0 E9/LNormal0.0 - 0.2 E9/LFTMC HemeAutoSSEosinophils/100 WBC (Bld)3.2 %Normal0.0 - 8.0 %[facility] HemeAutoSSEosinophils/Leukocytes Auto (Bld) [Pure # fraction]0.2 E9/LNormal0.0 - 0.5 E9/LFTMC HemeAutoSSLymphocytes/100 WBC (Bld) 31.9 %Badoye68.0 - 50.0 %[facility] HemeAutoSSLymphocytes/Leukocytes Auto (Bld) [Pure # fraction]1.9 E9/LNormal1.0 - 4.0 E9/LFTMC HemeAutoSSMonocytes/100 WBC (Bld)9.1 %Normal4.0 - 14.0 %[facility] HemeAutoSSMonocytes/Leukocytes Auto (Bld) [Pure # fraction]0.5 E9/LNormal0.2 - 1.0 E9/LFTMC HemeAutoSSNeutrophils/100 WBC (Bld) 55.1 %Fjounb53.0 - 75.0 %[facility] HemeAutoSSNeutrophils/Leukocytes Auto (Bld) [Pure # fraction]3.3 E9/LNormal2.0 - 7.5 E9/LFTMC HemeAutoSSHEMATOLOGYOrdered By: Kayleigh Ward on 79-35-5574Lsedcdrpzfn distribution width (RBC) [Ratio]12.9 % Telftt06.9 - 14.2 %[facility] HemeAutoSSHematocrit (Bld) [Volume fraction]40.1 %Normal 34.0 - 46.0 %[facility] HemeAutoSSHemoglobin (Bld) [Mass/Vol]13.2 g/aOQcqryr89.0 - 16.0 gm/dLFTMC HemeAutoSSMCH (RBC) [Entitic mass]27.7 xbMnelcq10.0 - 34.0 pgFTMC HemeAutoSSMCHC (RBC) [Mass/Vol]32.8 g/lJTyuowe17.4 - 36.0 gm/dLFTMC HemeAutoSS MCV (RBC) [Entitic vol]84.3 rVGlmsnr09.0 - 100.0 fLFTMC HemeAutoSSPlatelet mean volume (Bld) [Entitic vol]8.5 fLNormal6.4 - 10.8 fLFTMC HemeAutoSSPlatelets (Bld) [#/Vol]299.0 E9/RDgupaz740.0 - 500.0 E9/LFT[facility] HemeAutoSSRBC (Bld) [#/Vol] 4.8 E12/LNormal4.3 - 5.9 E12/LFTMC HemeAutoSSWBC corrected for nucl RBC Auto (Bld) [#/Vol]5.9 E9/LNormal4.0 - 11.0 E9/LFC HemeAutoSSLMPon 96-83-6019Gewb risk assessmenta) No falls within the last jjjpKN-WZKXF-Csydpo 320 Work Phone: Last menstrual period start wlrpffkqlyUK-PBRDA-Bwpqsi 320 Work Phone: Tobacco use status CPHSb) PtMJ-YLGBV-Grukpe 320 Work Phone: OB/FRENCH TUTOR - Office Visiton 46-97-1713OV/FRENCH TUTOR - Office VisitDiagnoses/Problems Assessed Endometriosis (617.9) (N80.9) Orders Start: Orilissa 200 MG Oral Tablet; take 1 tablet by mouth twice a day Provider Impressions 26 yo 1. endometriosis: discussed options continue norethindrone rx'd orilissa 200 mg bid rtc in 3 months Chief Complaint patient here to discuss pain related to endometriosis, declined straightener and aligner. 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 History of Present Wglmssg33 yo presents as a follow up for [...] again engaged x 1 year working at [employer] [place] Review of Systems Constitutional: no fever, no [...] hours Vitals Vital Signs Recorded: 09Feb2022 11:41AM Lpmcskdb286 Mvxjuycns19 Height5 ft 2 in Hzefay909 lb BMI Bsjfeftvve97.51 kg/m2 BSA Calculated1.61 Tobacco Useb) No Fall [...] NormalUH TouchworksXR KNEE LEFT (MIN 4 VIEWS)on 58-17-1164WE KNEE LEFT (MIN 4 VIEWS)EXAM: XR KNEE [...] Signed by: Joe Lopez MD 09/29/21 Final resultNormalMerEllis Island Immigrant HospitalOB/FRENCH TUTOR - Office Visiton 10-46-0047OJ/FRENCH TUTOR - Office VisitDiagnoses/Problems Assessed Anxiety (300.00) (F41.9) Orders Start: FLUoxetine HCl - 20 MG Oral Capsule; TAKE 1 CAPSULE Daily Provider Impressions 26 yo 1. endometriosis - discussed treatment options rx'd Prozac for mood rx'd norethindrone rtc in 3 months Chief Complaint patient to follow up on medication from last visit in march 2021, declined straightener and aligner. 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 History of Present Bukfawu89 yo with endometriosis was on norethindrone d/c'd [...] Every 6 hours Vitals Vital Signs Recorded: 68Vna2696 01:19PM Ovxcevrg635 Wqhyzesbx37 Height5 ft 2 in Zyhnak950 lb BMI Xjxoqhinmn12.58 kg/m2 BSA Calculated1.53 Tobacco Useb) No Fall Screeninga) No falls within the last year JOH73Fzs0349 Pain Scale0 Signatures Electronically signed by : Charlene Rodriguez DO; Jun 03 2021 10:55AM EST (Author) NormalUH TouchworksChlamydia sp identified Org specific cx Nom (Genital specimen)Ordered By: Jackelyn Dela Cruz on 17-64-2871Raxtvaex Chlamydia Screen NegativeNegativeSumma HealthHBV surface Ag IA Qlon 79-10-6658Hcgfcbyd Hepatitis B Surface AgNegativeNegative, None DetectedSumma HealthHIV 1+2 Ab and HIV1 p24 Ag IA.rapid Nom (S/P/Bld)on 09-48-9242HHV-1/HIV-2 AbNegativeSOhio Valley Surgical HospitalNo Panel Informationon 90-06-0325Jpgxxqkt Gonorrhea ScreenNegativeNegativeSOhio Valley Surgical Hospital External Rubella IGG QuantitationPositiveStewart Memorial Community Hospital Panel InformationOrdered By: Jackelyn Dela Cruz on 79-82-5157Fzkit HealthReagin Ab RPR Ql (S)on 92-44-5606Geqxmnmb RPRNon-ReactiveBorderline, Nonreactive, Weakly Reactive, EquivocalMarietta Osteopathic Clinic HealthOB/FRENCH TUTOR - Office Visiton 09-29-9608JA/FRENCH TUTOR - Office VisitDiagnoses/Problems Assessed Endometriosis (617.9) (N80.9) [...] for endometriosis PAP per patient 2019 WNL Bridge Expert declined -CATY,VICE PRESIDENT [employer]IGHT[employer] LMP 04/11/21 History of Present Eoldpxg89 yo with endometriosis bleeding once per month, [...] DO; Apr 20 2021 11:04AM EST (Author) [facility] TouchworksTobacco Screening.on 24-50-7289Frbt risk assessmenta) No falls within the last nhacHJ-WUIQG-Xgivcb 320 Work Phone: Last menstrual period start vleu03Ezk1030 AF-BEDXS-Lsvzoi 320 Work Phone: Tobacco Screening.b) RmMB-XVYGA-Hcrnst 320 Work Phone: Radiologyon 24-57-1087NF Kidney - bilateralNormal NX-Qtbnwje-Leixqpapo Work Phone: us RENAL BILATon 35-18-7591QR RENAL BILATMRN: [id number] Patient Name: JUHI COPE STUDY: RENAL BILAT; 04/14/2021 1:14 pm INDICATION: Recurrent UTI. COMPARISON: None. ACCESSION NUMBER(S): [id number] ORDERING CLINICIAN: TERI CHAU TECHNIQUE: Multiple images [...] renal ultrasound. Electronically signed by: GENEVIEVE BREEN MDSelect [facility]ty [facility] Office Visit (Urology)on 70-21-6674Tdskgi-up visitDiagnoses/Problems Assessed Recurrent UTI (599.0) (N39.0) Orders Recurrent UTI Start: Nitrofurantoin Monohyd Macro 100 MG Oral Capsule; TAKE 1 CAPSULE Other Please take one capsule after sexual intercourse to prevent UTI Rx By: Teri Chau; Dispense: 30 Days ; #:30 Capsule; Refill: 11;For: Recurrent UTI; ROSY = N; Verified Transmission to XD Nutrition Ultrasound Kidney Bilateral; Status:Hold For - Scheduling; Requested for:94Vyu7201; Perform:[facility]; Due:47Pwp5747; Last Updated By:Isela Terrazas; 04/01/2021 9:16:17 AM;Ordered; [...] UTI; ROSY = N; Verified Transmission to XD Nutrition Provider Impressions 26 year old female with history of endometriosis presents today via telehealth as a new patient forevaluation of recurrent UTIs. She reports getting UTIs at least once per month, noting occasional nocturia. Symptoms include burning, frequency, and back pain. She states that some UTIs are related to sexual intercourse but most are not. Patient reports she saw Dr. Booth at [facility] in [place], noting she was only treated with medications and urethral dilation for a supposed stricture.Denies gross hematuria. Patient is a non-smoker. Urine culture from [facility] on 03/04/21 was positive for E. [...] has no other questions at this time. Patriica Stokes, olena scribing for and in the presence of Dr. Chau. Teri Stokes, agreethat all documentation by the scribe, [...] NPV - recurrent UTI History of Present Uydaaic74 year old female with history of endometriosis presents today via telehealth as a new patient for evaluation of recurrent UTIs. She reports getting UTIs at least once per month, noting occasional nocturia. Symptoms include burning, frequency, and back pain. She states that some UTIs are related to sexual intercourse but most are not. Patient reports she saw Dr. Booth at [facility] in [place], noting she was only treated with medications [...] mood and affect. Signature (more content not included)...Normal TouchBaldwin [facility] GASTRIC EMPTYING SOLIDon 06-22-2266LK GASTRIC EMPTYING SOLID* * *Final Report* * * DATE OF EXAM: Nov 05 2020 12:26PM [facility] 0017 - [place] GASTRIC EMPTYING SOLID / PROCEDURE REASON: Nausea [...] 4 HOURS IS CONSISTENT WITH MILD GASTROPARESIS. System Auditor: PSCB Transcribe Date/Time: Nov 05 2020 1:09P Dictated by : SIDDHARTH PEREA MD This examination was interpreted and the report reviewed and electronically signed by: SIDDHARTH PEREA MD on Nov 05 2020 1:24PM EST [id number]_IDCSIACNNormalAtwood HospitalANES POSTPROC EVALon 27-03-6852JQGU POSTPROC EVALHNO ID: [id number] Author: Austin Story Service: ? Author Type: Anesthesiologist Type: Anesthesia Postprocedure Evaluation Filed: 10/25/2020 2:52 PM Note Text: POST ANESTHESIA EVALUATION NOTE : 1995 Procedure Summary Date: 10/25/20 Room / Location: ENDO 01 / ENDO Anesthesia Start: 1324 Anesthesia Stop: 1352 Procedures: COLONOSCOPY (N/A Colon Sigmoid) EGD (N/A Throat) Diagnosis: Gastroesophageal reflux disease without esophagitis Surgeons: [facility] Responsible Provider: Austin Story Anesthesia Type: MAC [...] October 25, 2020 TIME: 2:52 PM CSN: [id number] HospitalANES PRE-OPon 09-06-2122JODN PRE-OPHNO ID: [id number] Author: Austin Story Service: ? Author Type: [...] October 25, 2020 TIME: 1:08 PM CSN: [id number] Paul Jones Hospital PATHOLOGYon 10-25-2020 SURGICAL PATHOLOGYSpecimen originated from [facility] Specimen #: [id number] Submitting Physician: MALCOLM CRUZ MD FINAL DIAGNOSIS 1. Small bowel, biopsy (A) - Small bowel mucosa with no pathologic diagnostic abnormality; negative for celiac disease, granulomas and dysplasia. 2. Stomach, biopsy (B) - Gastric oxyntic-type mucosa with no pathologic diagnostic abnormality; see comment. /critical access hospital 10/26/2020 COMMENT 2. No microorganisms morphologically [...] one cassette. Gross examination performed at [facility], [address] [place] [address] 10/25/2020 7:59:40 PM Date of Report: 10/26/2020 Date of Procedure: 10/25/2020 Date of Receipt: 10/25/2020 Submitted by: MALCOLM CRUZ MD Location: AVEN Diagnostic interpretation performed at [facility], [address] [place] [address]. [place] Number: [id number] Clinic Reference LabComment on above:Performed By: #### S #### See report for performing lab information.SURGICAL PATHOLOGYSpecimen originated from [facility] Specimen #: [id number] Submitting Physician: MALCOLM CRUZ MD FINAL DIAGNOSIS 1. Small bowel, biopsy (A) - Small bowel mucosa with no pathologic diagnostic abnormality; negative for celiac disease, granulomas and dysplasia. 2. Stomach, biopsy (B) - Gastric oxyntic-type mucosa with no pathologic diagnostic abnormality; see comment. /critical access hospital 10/26/2020 COMMENT 2. No microorganisms morphologically [...] one cassette. Gross examination performed at [facility], [address] [place] [address] EJL 10/25/2020 7:59:40 PM Date of Report: 10/26/2020 Date of Procedure: 10/25/2020 Date of Receipt: 10/25/2020 Submitted by: MALCOLM CRUZ MD Location: [facility] Diagnostic interpretation performed at [facility], [address] [place] [address]. CLIA Number: [id number] HospitalABO/RH GROUP TESTon 10-49-0479VPJ CLEVELAND CLINIC MENTOR HOSPITALONoCarolinas ContinueCARE Hospital at Kings MountainComment on above: Performed By: #### VERAB #### [facility] [address] [id number] TYPEPositiveIberia Medical CenterComment on above: Performed By: #### VERAB #### [facility] [address] [id number] Surgical Pathology Departmenton 35-17-4410Ekuty Surgical Pathology DepartmentName JUHI COPE Pathologist: ASHLEY HURTADO MD Date of Procedure: 09/01/2020 Date Received: 09/01/2020 Date Reported 09/03/2020 Submitting Physician: CHARLENE RODRIGUEZ D.O. Location: [facility] External # FINAL DIAGNOSIS A. LEFT [...] D. Right pelvic sidewall peritoneum are 2 enhv-kwq-cjf, irregular fragments of tissue measuring 1.3 x [...] in toto in one cassette. SB amisha/09/02/2020 [facility] Department of Pathology [address], [place] [address]NoCarolinas ContinueCARE Hospital at Kings MountainComment on above:Performed By: #### [facility] #### [facility] Surgical Pathology Department [address] [place], [place] [address]History and Physical - Surgery > 30 dayson 62-98-2903Gbkiwpo and Physical - Surgery > 30 daysHistory [...] T&S: O+, COVID-19: negative OB Hx: None. Social Service Director Hx: As above. PMHx: endometriosis Surg Hx: diagnostic laparoscopy, appendectomy (2016) Meds: Meloxicam, Kimble-Linyah, Norethindrone acetate Social Hx: No tobacco, no [...] the note. I personally evaluated the patient [id number] Attending Provider Inpatient Certification StatementObservation patient/other outpatient visits Electronic Signatures: Charlene Rodriguze) (Signed 01-Sep-2020 10:04) Authored: Note Completion Co-Signer: History of Present Illness, Home Medication Review, Impression/Procedure, ERAS, Physical Exam, Consent, Note Completion Chelsie Leal (Resident)) (Signed 31-Aug-2020 15:44) Authored: History of Present Illness, Home Medication Review, Impression/Procedure, ERAS, Physical Exam, Consent, Note Completion Last Updated: 01-Sep-2020 10:04 by Charlene Rodriguez)[facility] Medical CenterHomegoing Instructionson 74-43-6219Iqwuffjlb InstructionsAdditional Instructions: Handouts Given: Topic 1Anesthesia Homegoing Instructions Topic 2Surgical Site Infection Handout Topic 3New Medication Education Topic 4Suggamedex handout Electronic Signatures: Aminata Gomez) (Signed 01-Sep-2020 16:07) Authored: Additional Instructions Last Updated: 01-Sep-2020 16:07 by Aminata Gomez)[facility] Medical CenterPatient Profile - Preop v2on 28-59-0523Owknlrb Profile - Preop i0Iekhoiq: Initial Info: How to be Addressedalexis Spoken Language PreferredEnglish Are you currently using the Personal Electronic Health Record or Quoteroller Stated Reason for Admissionseeing if my endometriosis is back Primary Contact Name and Numberlogan [phone] Patient Belongingsclothing locker glasses with bf Medications Brought to Hospitalno General Health: Weight in kg55.6 kilogram(s) Weight in vbu866.5 pound(s) Weight Methodactual (measured) Scale Typestanding Height [...] Arrangementshouse Lives Withparent(s) Resource/Environmental Concernsnone Anticipated Transition Tonorth [facility] hospitale Services Anticipated at Transitionnone Substance: Current [...] Learning Preferencesverbal instruction Cultural Considerationsnone Developmental Considerationsnone Presybeterian Considerationsnone Other learner availableno Falls RiskPatient location auto qualifies him/her for HIGH RISK. Are there any cultural, spiritual, religion practices/values/needs that are important for us to knowno Pain Scalenumerical 0-10 Pain Scale Educationteaching provided Current Pain Level0 = None Acceptable Pain Level5 = Moderate Chronic Painno Information Review: Allergies, Home Meds and Significant Events have been Reviewed and Verified with Patient/Familyyes Allergy, Intolerance, Adverse Event: Allergies: No Known Allergies: Active Electronic Signatures: Sierra KraftRN) (Signed 01-Sep-2020 12:39) Authored: Initial Info, General Health, Health Mgmt, Relationship/Environ, Substance, Risk Screens, Additional Information Last Updated: 01-Sep-2020 12:39 by Sierra Kraft (RN) References: 1. Data Referenced From History and Physical - Surgery > 30 days 01-Sep-2020 03:42Iberia Medical CenterPreop Checkliston 59-60-4898Egsis Checklist Preop Checklist: Preop Checklist: Arrival Ntqt97-Qqq-1944 Arrival Time12:30 Procedure Typelaparoscopic endometriosis excision NPO Gdslni97-Cwh-2541 00:00 ID Band Onyes Allergy Bandno known [...] Last Updated: 01-Sep-2020 12:35 by Sierra Kraft (RN)[facility]ia Medical CenterANTIBODY IDENT.on 08-39-6981WAFRSDGM IDENT.SEE BELOWIberia Medical CenterComment on above:Result Comment: NO CLINICALLY SIGNIFICANT ANTIBODIES IDENTIFIED.Performed By: #### ABID #### [facility] [address] [place], [place] [address]WSSrc 09-38-9741Ehczeayqctn distribution width (RBC) [Ratio] 12.1 %Yitkay88.5 - 14.5[facility] Institute for RehabilitationComment on above:Performed By: #### CBC #### [address] [id number] (Bld) [Volume fraction]39.6 %Bucqtm69.0 - 46.0[facility] for RehabilitationComment on above:Performed By: #### CBC #### [address] [id number] (Bld) [Mass/Vol]12.6 g/bRVuvrxm34.0 - 16.0[facility] Institute for RehabilitationComment on above:Performed By: #### CBC #### [address] [id number] (RBC) [Mass/Vol]31.8 g/dLLow32.0 - 36.0[facility] for RehabilitationComment on above:Performed By: #### CBC #### [address] [id number] (RBC) [Entitic vol]90 fMTzdesm08 - 100[facility] Institute for RehabilitationComment on above:Performed By: #### CBC #### [address] [id number] (Bld) [#/Vol]333 10*3/aUFjefxj894 - 450K[facility] Institute for RehabilitationComment on above:Performed By: #### CBC #### [address] [id number] x10E12/LNormal4.00 - 5.20[facility] Comment on above:Performed By: #### CBC #### [address] [id number] (Bld) [#/Vol]5.6 10*3/uLNormal4.4 - 11.3[facility] Institute for RehabilitationComment on above:Performed By: #### CBC #### [address] [place], [place] [id number] 2019, SCREEN ASYMPTOMATICon 65-00-2470TVWV-CoV-2 (COVID-19) RNA TENA+probe Ql (Unsp spec)Not detectedNormalNot DetectedKessler Institute for RehabilitationComment on above:Result Comment: This assay is designed [...] patient management decisions. Fact sheet for providers: https://www.fda.gov/media/830076/download Fact sheet for patients: https://www.fda.gov/media/384891/download This test has received FDA Emergency Use Authorization (EUA) and has been verified by [facility] ([facility]). This test is only authorized for the duration of time that circumstances exist to justify the authorization of the emergency use of in vitro diagnostic tests for the detection of SARS-CoV-2 virus and/or diagnosis of COVID-19 infection under section 564(b)(1) of the Act, 21 U.S.C. 360bbb-3(b)(1), unless the authorization is terminated or revoked sooner. [facility] is certified under CLIA-88 as qualified to perform high complexity testing. Testing is performed in the [facility] laboratories located at [address] [place] [address].Performed By: #### COVSC #### [place], [place] [address]Lab Specimen SourceNasal, NasopharyngealNoKindred Hospital - DenverComment on above:Performed By: #### COVSC #### [facility] [id number] [place], [place] [address]TYPE + SCREENon 97-47-3058SHX TYPEONoCarolinas ContinueCARE Hospital at Kings MountainComment on above:Performed By: #### T+S #### [facility] [address] [place], [place] [address]VY TYPEPositiveNoCarolinas ContinueCARE Hospital at Kings MountainComment on above: Performed By: #### T+S #### [facility] [address] [place], [place] [address]XAR TYPECanceledLake City Hospital and ClinicComment on above:Order Comment: TEST TYPE + SCREEN WAS CANCELLED, 08/30/2020 13:37 JOP. Performed By: #### T+S #### [facility] [address] [place], [place] [address]DX TYPECancelKittson Memorial HospitalComment on above:Order Comment: TEST TYPE + SCREEN WAS CANCELLED, 08/30/2020 13:37 JOP. Performed By: #### T+S #### [facility] [address] [place], [place] [address]QWYGck 13-48-1787WAXOBhxqwzu:Juhi Cope MRN: Height:5' 2 (1.575 m) Weight:120 [...] for the following basenames: K,HCT Progress Notes ([facility] REJ AV4): Jaquelin Wesley Ma 10/19/2020 [...] 1 10 oz. Bottle of Magnesium Citrate (Lemon/[place]) ? A test for COVID 19 test [...] toast without seeds (not multigrain); pretzels; waffles, Telugu toast and pancakes; white rice, noodles, pasta, macaroni, peeled cooked potatoes; Special K, Rice Krispies or [place] Flakes cereals; ripe bananas; melons (except watermelon [...] carbonated beverages such as chi aislinn or lemon-bad river band soda; Gatorade? or other sports drinks (not [...] make sure you have a responsible adult rear load truck driver to take you home after procedure. Due to having sedation, you may not drive the rest of the day. ? If you need to reschedule, please call [phone] ?Date/Provider Dr Cruz Procedure:colonoscpy Facility:[facility] Prep ordered( if aware):miralax Knowledge of prep instructions:posted to [employer] Diabetic:no Blood Thinners:no Pacemaker with defibrillator:no left message for patient to return call. Nurse triage please give below message. PLEASE READ PATIENT INSTRUCTIONS BELOW. THANK YOU.Gateway Rehabilitation HospitalPROGRESS on 96-09-2696HLNGLBXOCCC ID: [id number] Author: Leon Perkins (Rt) Fito Blanchard Service: Radiology Author Type: Infusion Therapy Nurse Type: Progress Notes Filed: 07/29/2020 11:06 AM [...] BY: RT Daya July 29, 2020 11:01 [facility] HospitalXR ABD 2V SUPINE W UPR/DECUB/CTLon 81-78-2938RX ABD 2V SUPINE W UPR/DECUB/CTL* * *Final [...] structures are normal. No other significant abnormality. System Auditor: PSCB Transcribe Date/Time: Jul 29 2020 11:19A Dictated by : LALI ORNELAS MD This examination was interpreted and the report reviewed and electronically signed by: LALI ORNELAS MD on Jul 29 2020 11:19AM EST [id number]_[facility] Vital Signs Date TimeVital SignValuePerforming JekezymkhVjmqpkmm81-46-7996 16:04-0400Body mass index (BMI) [Ratio]29.78 kg/z2Zoybz Kiesha DO Work Phone: [facility]–Barry RoadUgjvbpynuo52-04-3293 16:04-0400Body qfjmfe99.85 kgCorey Kiesha DO Work Phone: [facility]–Barry RoadUgahfzauhj48-77-7508 16:04-0400Diastolic blood gvnxnarm93 mm[Hg]Nathan Kiesha DO Work Phone: [facility]–Barry RoadBmlsiymehp23-63-7207 16:04-0400Systolic blood qyyfqcqw836 mm[Hg][facility] HospitalziMer[facility] Hospital Joplin Work Phone: [facility]–Barry RoadEeqzczgriv81-32-4536 10:34-0400Body mass index (BMI) [Ratio]29.26 kg/b9HwcgglbxMadhuri Monroy MD Work Phone: [phone]-[employer] [place], [place] [address]10-16-2025 10:34-0400Body .58 kgMadhuri Monroy MD Work Phone: [phone]-[employer] [place], [place] [address]10-16-2025 10:34-0400Diastolic blood jyllkpgf12 mm[Hg]Madhuri Monroy MD Work Phone: [phone] [place], [place] [address]10-16-2025 10:34-0400Systolic blood atnqayhm140 mm[Hg]Madhuri Monroy MD Work Phone: [phone] [place], [place] 8143110-10-2025 14:48-0400Body .5 cmMine Denise MD Work Phone: [phone])[address] [place], [place] 8143110-10-2025 14:48-0400Body mass index (BMI) [Ratio]29.04 kg/b8NlymtlMine Denise MD Work Phone: [phone])[address] [place], [place] 8143110-10-2025 14:48-0400Body mspuwt94.03 kgMine Denise MD Work Phone: [phone])[address] [place], [place] 8143110-10-2025 14:48-0400Diastolic blood kgtupfte93 mm[Hg]Mine Denise MD Work Phone: [phone])[address] [place], [place] 8143110-10-2025 14:48-0400Heart rate 104 /minMine Denise MD Work Phone: [phone] [place], [place] 8143110-10-2025 14:48-0400Systolic blood uxcsckth378 mm[Hg]Mine Denise MD Work Phone: [phone])[address] [place], [place] 8143110-09-2025 15:54-0400Body mass index (BMI) [Ratio]29.41 kg/u3AvymiktdSteph Keane ENVIRONMENTAL PROPERTY ASSESSOR Work Phone: [phone] [place], [place] [address]Qvibnyukhx72-17-3493 15:54-0400Body .94 kgStehp Keane ENVIRONMENTAL PROPERTY ASSESSOR Work Phone: [phone]10-09-2025 15:54-0400Diastolic blood aghyiiix38 mm[Hg]Steph Keane ENVIRONMENTAL PROPERTY ASSESSOR Work Phone: [phone]10-09-2025 15:54-0400Systolic blood jousdbra349 mm[Hg]Steph Keane ENVIRONMENTAL PROPERTY ASSESSOR Work Phone: [phone]10-02-2025 15:37-0400Body mass index (BMI) [Ratio]29.23 kg/j4GqphvzuwSteph Keane ENVIRONMENTAL PROPERTY ASSESSOR Work Phone: [facility] RoadJtelbgashc13-91-6549 15:37-0400Body ebkulx62.48 kgSteph Keane ENVIRONMENTAL PROPERTY ASSESSOR Work Phone: [facility] RoadEtrkdlkgtg69-12-0082 15:37-0400Diastolic blood bhzvirfz21 mm[Hg]Steph Keane ENVIRONMENTAL PROPERTY ASSESSOR Work Phone: [facility] RoadXpigfoujcu22-23-3580 15:37-0400Systolic blood mm[Hg]Steph Keane ENVIRONMENTAL PROPERTY ASSESSOR Work Phone: [facility] RoadUdbggctzyj21-56-6280 15:55-0400Body mass index (BMI) [Ratio]29.45 kg/l6AidvncTeena Sarmiento RN Work Phone: [phone] [place], [place] 0786509-29-2025 15:55-0400Body avrjra86.03 kgTeena Sarmiento RN Work Phone: [phone] [place], [place] 0786509-17-2025 14:32-0400Body mass index (BMI) [Ratio]27.82 kg/d9Ztdqh Kiesha DO Work Phone: [facility] RoadPmicwfuiyq23-64-9952 14:32-0400Body kg Nathan Kiesha DO Work Phone: [place] [address]Qfitcynvvf02-87-7754 14:32-0400Diastolic blood atodfwno60 mm[Hg]Nathan Kiesha DO Work Phone: [place] [address]Ttctbkxjfc81-92-3706 14:32-0400Systolic blood ykgpcqnw490 mm[Hg]Nathan Kiesha DO Work Phone: [facility] RoadYecdupwyia10-88-3329 15:36-0400Body cihudu195.5 cmGemartha Kaftan DO Work Phone: [facility]OC[facility] BransonLnlyvucemp19-12-1128 15:36-0400Body mass index (BMI) [Ratio]27.62 kg/p6Fdtfix Kaftan DO Work Phone: noCox BransonSnvunygapi60-13-6966 15:36-0400Body temperature 97.11 [degF]Eliceo Beltran DO Work Phone: noCox BransonGtkjqhklci47-35-4306 15:36-0400Body houety48.49 kgGemartha Beltran DO Work Phone: [facility]OC[facility] BransonVafypljqhn51-06-7882 15:36-0400Diastolic blood cscampcv77 mm[Hg]Eliceo Beltran DO Work Phone: [facility] BransonCzktofwqdh74-41-8153 15:36-0400Heart rate97 /min Eliceo Beltran DO Work Phone: [facility] BransonPmdozxcsin00-69-6357 15:36-2855MiI4% (BldA) [Mass fraction]98 %Eliceo Beltran DO Work Phone: SBCox BransonYpleucyhnu98-16-4420 15:36-0400Systolic blood xurheuvq198 mm[Hg]Eliceo Beltran DO Work Phone: noCox BransonVfktupbbsl55-67-7086 15:42-0400Body mass index (BMI) [Ratio]26.48 kg/i8Eaxku Kiesha DO Work Phone: [facility] RoadLqobfaoozq88-19-7607 15:42-0400Body pzwisg51.68 kgDmitriy Kiesha DO Work Phone: [facility] RoadSgqnbfbohg46-98-1264 15:42-0400Diastolic blood gmfkucfm20 mm[Hg]Nathan Kiesha DO Work Phone: [facility]OC[facility] BransonIwrulhcath41-58-5403 15:42-0400Systolic blood ptyyftxw206 mm[Hg]Nathan Cabrerao DO Work Phone: [facility]OC[facility] BransonBcpbheyjqd70-49-7723 14:33-0400Body mass index (BMI) [Ratio]26.73 kg/v8Hwceu Kiesha DO Work Phone: [facility]OC[facility] BransonNcbkwwvugt77-18-9429 14:33-0400Body ndjyej72.28 kgCorey Kiesha DO Work Phone: [facility]OC[facility] BransonQhiinceead53-70-3640 14:33-0400Diastolic blood vbodqilt29 mm[Hg]Nathan Kiesha DO Work Phone: [facility] RoadZhdxcwqjjx27-83-7222 14:33-0400Systolic blood mm[Hg]Nathan Kiesha DO Work Phone: [facility] RoadUwiosqqtjt97-43-3917 14:45-0400Body mass index (BMI) [Ratio]25.24 kg/x2Ozrph Kiesha DO Work Phone: [facility] RoadBwmhatllqv45-61-2424 14:45-0400Body .6 kg Nathan Kiesha DO Work Phone: [facility] RoadCjcujxxdyo48-58-4079 14:45-0400Diastolic blood wwknszew73 mm[Hg]Nathan Kiesha DO Work Phone: [facility] RoadEjkwiotnhg23-53-6757 14:45-0400Systolic blood sfgnjkhu527 mm[Hg]Nathan Kiesha DO Work Phone: [facility] RoadOvisftubsf41-91-2422 10:29-0400Body mass index (BMI) [Ratio]25.68 kg/m2[facility]06-06-2025 10:29-0400Body ghwivi25.69 kgC[facility]delet [facility]02-24-2025 15:08-0500Body mass index (BMI) [Ratio]25.99 kg/w2Wboxj Kiesha DO Work Phone: [facility] RoadSiodllryfr43-55-5704 15:08-0500Body ibdrax49.47 kgCorey Kiesha DO Work Phone: [facility] RoadQsexyrccwh57-62-1471 15:08-0500Diastolic blood ucqioqxm10 mm[Hg]Nathan Kiesha DO Work Phone: [facility] RoadFfgdhnkfwy84-28-4449 15:08-0500Systolic blood psmysdyh836 mm[Hg]Nathan Kiesha DO Work Phone: [facility] RoadDqeyymblyh95-50-9538 15:53-0500Body vtufdf184.5 cmGeorge Kaftan DO Work Phone: [facility]OC[facility] BransonFzzyisoghi63-76-2579 15:53-0500Body mass index (BMI) [Ratio]25.61 kg/a7Glegfumartha Beltran DO Work Phone: noCox BransonObjlxmyvci36-04-0220 15:53-0500Body temperature 97.11 [degF]Eliceo Beltran DO Work Phone: noCox BransonDpnlwesoiw02-84-3142 15:53-0500Body brsazl05.5 kg Eliceo Beltran DO Work Phone: [facility] RoadIotobhvweg79-94-0404 15:53-0500Diastolic blood oxdaxwym38 mm[Hg]Eliceo Beltran DO Work Phone: [facility] RoadYdpykzzvwz37-44-2259 15:53-0500Heart rate51 /min Eliceo Beltran DO Work Phone: noCox BransonXraqubsmuu24-29-3476 15:53-1972YgM9% (BldA) [Mass fraction]98 %Eliceo Beltran DO Work Phone: noCox BransonZyhgemxytk17-60-2715 15:53-0500Systolic blood mm[Hg]Eliceo Beltran DO Work Phone: [facility] RoadGxjmgvqzdp84-34-5550 11:15-0400Body mass index (BMI) [Ratio]25.97 kg/k4Uqqbo Fazio DO Work Phone: [facility] RoadKbrpsingfd41-41-7644 11:15-0400Body xoucnm06.41 kgCorepearl Pop DO Work Phone: [facility] RoadRivpapqfxv61-97-1130 11:15-0400Diastolic blood mm[Hg]Nathan Cabrerao DO Work Phone: [facility] RoadLrpmvcbbdw25-17-0244 11:15-0400Systolic blood jajdacqw548 mm[Hg]Nathan Cabrerao DO Work Phone: [facility] RoadXtbepyaxox62-41-5005 10:02-0400Body mass index (BMI) [Ratio]25.39 kg/s2Xejwx Kiesha DO Work Phone: [facility] RoadZiwrwoylem76-56-5892 10:02-0400Body admwyx03.96 kgCorey Kiesha DO Work Phone: [facility] RoadRdlnatasok93-69-2461 10:02-0400Diastolic blood baijarbs70 mm[Hg]Nathan Kiesha DO Work Phone: [phone] [place], [place] [address]Ziafqcukln21-45-8391 10:02-0400Systolic blood halajgqj424 mm[Hg]Nathan Kiesha DO Work Phone: 1(783)878-[address] [place], [place] [address]Lkfyokdaaf18-59-5404 10:55-0500Body mass index (BMI) [Ratio]28.17 kg/o1Zotal Kiesha DO Work Phone: 1(508)298-[address] [place], [place] [address]Zorhpprzkt22-88-2562 10:55-0500Body rejrib45.85 kgCorey Kiesha DO Work Phone: 1(776)082-[address] [place], [place] [address]Ducqcayacz42-01-6030 10:55-0500Diastolic blood rzhtayej53 mm[Hg]Nathan Kiesha DO Work Phone: 1(140)692-[address] [place], [place] [address]Nmufxfavna76-38-3647 10:55-0500Systolic blood viuovfrz747 mm[Hg]Nathan Kiesha DO Work Phone: 1(698)862-[address] [place], [place] [address]Nzeydicqjg74-83-0307 17:31-0400Body temperature 98.96 [degF][facility]on L[facility]10-18-2023 17:31-0400 Diastolic blood umwypdoe90 mm[Hg][facility]10-18-2023 17:31-8852VDT7 99 %[facility]10-18-2023 17:31-0400Heart idtz534 /Janet Loco [facility]10-18-2023 17:31-0400 Respiratory rate16 /minVon Loco [facility]10-18-2023 17:31-0400 Systolic blood eiphrduu552 mm[Hg][facility]06-06-2023 10:55-0400Body .5 cmErin Reaper OPERATOR AUTOMATED PROCESS.ENGLISH DRAWER Work Phone: [place] Mwddgi42-79-6656 10:55-0400Body skoiix08.86 kgErin Reaper OPERATOR AUTOMATED PROCESS.ENGLISH DRAWER Work Phone: [phone] Jmkuad67-00-5252 10:55-0400Diastolic blood oihzyykm40 mm[Hg]Jihan Reaper OPERATOR AUTOMATED PROCESS.ENGLISH DRAWER Work Phone: [phone] Ostswl84-49-5844 10:55-0400Systolic blood uxjojxct714 mm[Hg]Jihan Reaper OPERATOR AUTOMATED PROCESS.ENGLISH DRAWER Work Phone: [place] Qhoogc56-57-4082 19:18-0500Diastolic blood mm[Hg][facility]03-08-2023 19:18-0500Heart rate98 /min[facility]03-08-2023 19:18-0500Nursing Progress Note ReasonOther: this RN discharged pt. pt verbalizes understanding and denies questiosn prior to discharge.[facility]03-08-2023 19:18-0500Respiratory rate16 /min[facility]03-08-2023 19:18-6577QvS4% (BldA) [Mass fraction]100 %[facility]03-08-2023 19:18-0500 Systolic blood crhuydpa693 mm[Hg][facility] 01-31-2023 18:00-0500Diastolic blood iwdpqteb77 mm[Hg][facility]03-08-2023 18:00-0500Heart ybie745 /min[facility]03-08-2023 18:00-0500Mean blood whosxjap903 mm[Hg][facility]03-08-2023 18:00-3877QzB6% (BldA) [Mass fraction]99 %[facility]03-08-2023 18:00-0500 Systolic blood qabgyzjg717 mm[Hg][facility] 01-31-2023 17:00-0500Diastolic blood mm[Hg][facility]03-08-2023 17:00-0500Mean blood kxlkigck543 mm[Hg][facility]03-08-2023 17:00-0500Systolic blood pressure 117 mm[Hg][facility]03-08-2023 16:38-0500Heart hrkd225 /min[facility]03-08-2023 16:38-0500Mean blood lxqdgiaj417 mm[Hg][facility]03-08-2023 16:38-0500Respiratory rate18 /min[facility] 01-31-2023 13:49-0500Body .88 [degF][facility]03-08-2023 13:49-0500Heart fwii038 /[facility]02-04-2023 14:55-0500Body ztfhzyuydlt94.88 [degF][facility]02-04-2023 14:55-0500Diastolic blood ircmtdzb56 mm[Hg][facility]02-04-2023 14:55-0500Heart rate84 /min[facility]02-04-2023 14:55-0500Mean blood cxgvostd088 mm[Hg][facility]02-04-2023 14:55-0500Respiratory rate20 /min[facility]02-04-2023 14:55-9529QbN2% (BldA) [Mass fraction]98 %[facility]02-04-2023 14:55-0500Systolic blood pressure 137 mm[Hg][facility]02-04-2023 14:35-0500Body oxhwcqahmnr35.88 [degF][facility]02-04-2023 14:35-0500Diastolic blood enxjcfde10 mm[Hg][facility]02-04-2023 14:35-0500Heart rate82 /min[facility]02-04-2023 14:35-0500Mean blood ezwgnnlu63 mm[Hg][facility]02-04-2023 14:35-0500Respiratory rate16 /min[facility]02-04-2023 14:35-4574VsB5% (BldA) [Mass fraction]97 %[facility]02-04-2023 14:35-0500Systolic blood grepgflq175 mm[Hg][facility]02-04-2023 13:35-0500Body arjcwnyrezx27.88 [degF][facility]02-04-2023 13:35-0500Diastolic blood mm[Hg][facility]02-04-2023 13:35-0500Heart rate80 /[facility]02-04-2023 13:35-0500Mean blood mm[Hg] [facility]02-04-2023 13:35-0500Respiratory rate 17 /min[facility]02-04-2023 13:35-6459FoZ5% (BldA) [Mass fraction]96 %[facility]02-04-2023 13:35-0500Systolic blood hygossyy089 mm[Hg][facility]02-04-2023 13:00-0500Respiratory rate12 /min[facility]02-04-2023 12:55-0500Respiratory rate9 /min[facility]02-04-2023 12:50-0500Respiratory rate10 /min[facility]02-04-2023 08:15-0500Body geezyfntexw84.24 [degF] [facility]02-04-2023 08:15-0500Heart ybci878 /min[facility]01-07-2023 13:41-0500Body blfdqqiyzox75.2 [degF]Kathe Ryder DO Work Phone: [facility]8365 13:41-0500Diastolic blood fcqlopje54 mm[Hg]Kathe Ryder DO Work Phone: 1(496)313-[address] [place], [place] [address]Dubiie74-97-0265 13:41-0500Heart ffnm297 /min Kathe Ryder DO Work Phone: [facility] HospitalZyylwj88-91-2313 13:41-0500Respiratory rate18 /minKathe Ryder DO Work Phone: [facility] HospitalJavyno97-17-0095 13:41-3354VvD3% (BldA) [Mass fraction]99 %Kathe Ryder DO Work Phone: 1(199)583-[address] [place], [place] [address]Bhpyxs52-10-1073 13:41-0500Systolic blood umuzexmt896 mm[Hg]Kathe Ryder DO Work Phone: [facility] HospitalWufaib47-99-0441 00:45-0500Body lilxyo596.5 cm Kathe Ryder DO Work Phone: [facility] HospitalRzzyji94-14-5132 00:45-0500Body mass index (BMI) [Ratio]25.61 kg/b2DbqdnvqiqKathe Ryder DO Work Phone: [facility] HospitalEzumqy51-99-7302 00:45-0500Body qmhdaf82.5 kg Kathe Ryder DO Work Phone: [facility] Durjep73-10-8017 22:26-0500Hourly Rounding Fredi SCHUMACHERASIK [address] [place], [place] [address]Comment on above:Result Comment: ensured that all pt belongings are sent with pt. pt has no questions or concerns. report given to EMS. pt stable and no s/s of distress. pt off unit to wnrojfau94-78-9794 22:00-0500Diastolic blood ltxlypbt02 mm[Hg]Fredi KARASIK [address] [place], [place] 3302801-02-2023 22:00-0500Heart vidm076 /minGregory KARASIK [address] [place], [place] 3302801-02-2023 22:00-0500 Hourly RoundingCjory KARASIK [address] [place], [place] 3302801-02-2023 22:00-0500Mean blood naglfnle684 mm[Hg]Fredi KARASIK [address] [place], [place] 3302801-02-2023 22:00-0500 Systolic blood khyltzdc151 mm[Hg]Fredi KARASIK [address] [place], [place] 3302801-02-2023 21:50-0500Blood Pressure LocationGregory KARASIK [address] [place], [place] 3302801-02-2023 21:50-0500 Diastolic blood xpxipdga73 mm[Hg]Fredi KARASIK [address] [place], [place] 3302801-02-2023 21:50-0500Heart jutk444 /minGregory KARASIK [address] [place], [place] 3302801-02-2023 21:50-0500 Hourly RoundingCjory KARASIK [address] [place], [place] 3302801-02-2023 21:50-0500Mean blood mm[Hg]Fredi KARASIK [facility]01-02-2023 21:50-0500 Respiratory rate18 /minFredi DORSEY [address] [place], [place] 3302801-02-2023 21:50-4322IaN9% (BldA) [Mass fraction]98 %Fredi DORSEY [address] [place], [place] 3302801-02-2023 21:50-0500 Systolic blood yurktoxm077 mm[Hg]Fredi DORSYE [address] [place], [place] 3302801-02-2023 21:37-0500Blood Pressure LocationFredi DORSEY [address] [place], [place] 3302801-02-2023 21:37-0500 Diastolic blood ehcjbgxs17 mm[Hg]Fredi DORSEY [address] [place], [place] 3302801-02-2023 21:37-0500Heart ykpw395 /minFredi DORSEY [address] [place], [place] 3302801-02-2023 21:37-0500Mean blood pvzccqza754 mm[Hg]Fredi DORSEY [facility]01-02-2023 21:37-5150EtQ6% (BldA) [Mass fraction]97 %Fredi DORSEY [address] [place], [place] 3302801-02-2023 21:37-0500 Systolic blood sdufappq811 mm[Hg]Fredi DORSEY [address] [place], [place] 3302801-02-2023 21:30-0500Blood Pressure LocationFredi DORSEY [address] [place], [place] 3302801-02-2023 21:30-0500Body aisabyzmbbn72.6 [degF]Fredi SCHUMACHERASIK [address] [place], [place] 3302801-02-2023 19:00-0500Body ityangdbrrn40.24 [degF]Fredi DORSEY [facility]01-02-2023 17:15-0500Body moysusbxtbu25.06 [degF]Fredi DORSEY [facility]01-02-2023 14:02-0500Heart rate99 /minFredi DORSEY [facility]08-19-2022 07:00-0400Body dcnjszfeist96.6 [degF]Kaylinn Dokken [address]08-19-2022 07:00-0400 Diastolic blood wybiwgvk51 mm[Hg]Kaylinn Dokken [address] [place], [place] 7143008-19-2022 07:00-0400Heart rate80 /minKaylinn Dokken [address] [place], [place] 7143008-19-2022 07:00-0400Mean blood xstobhse65 mm[Hg]Kaylinn Dokken [address] [place], [place] 7143008-19-2022 07:00-0400 Respiratory rate17 /minKaylinn Dokken [address] [place], [place] 7143008-19-2022 07:00-0400 Systolic blood vbqbmpuz312 mm[Hg]Kaylinn Dokken [address] [place], [place] 7143008-19-2022 06:07-0400Body nvwthakiqfz73.24 [degF]Kaylinn Dokken [address] [place], [place] 7143008-19-2022 06:07-0400 Diastolic blood nrewhvny85 mm[Hg]Kaylinn Dokken [address] [place], [place] 7143008-19-2022 06:07-0400Heart rate90 /minKaylinn Dokken [address]08-19-2022 06:07-0400 Respiratory rate18 /minKumar Villagomez [address] [place], [place] 7444508-19-2022 06:07-4466QzJ2% (BldA) [Mass fraction]100 %Kumar Villagomez [address]08-19-2022 06:07-0400 Systolic blood qxdaotan454 mm[Hg]Kumar Villagomez [address]08-19-2022 05:30-0400 Hourly RoundingCorey KIESHA [address] [place], [place] [address]Comment on above:Result Comment: Pt discharged per physician orders. Pt ambulates off unit with a steady ivjk21-74-2742 05:15-0400Diastolic blood mbxirhne72 mm[Hg]Nathan KIESHA [address] [place], [place] 3302808-19-2022 05:15-0400Heart uzyf687 /minCorey KIESHA [address] [place], [place] 3302808-19-2022 05:15-0400 Hourly RoundingCorey KIESHA [address] [place], [place] 3302808-19-2022 05:15-0400Mean blood ijkgzngz80 mm[Hg]Nathan KIESHA [address] [place], [place] 3302808-19-2022 05:15-0400 Respiratory rate18 /minCorey KIESHA [address] [place], [place] 3302808-19-2022 05:15-0400 Systolic blood hkqtuqcy908 mm[Hg]Nathan KIESHA [address] [place], [place] 3302805-24-2022 11:00-0400Body agojyv952.02 Abdi Hodges Other [place] [employer] Other 05-24-2022 11:00-0400Body mass index (BMI) [Ratio] 23.03 kg/s7Qhrjrsm DiRadialogicapearl Other [facility] Other 05-24-2022 11:00-0400Body yenscw37.97 kgCamdorene Hodges Other [place] [employer] Other 03-17-2022 11:41-0400Body ygfjao377.48 cmMegan Billow DO Work Phone: JQ-RPQSU[address] Work Phone: [phone] 11:41-0400Body mass index (BMI) [Ratio] 24.51 kg/e3Xznbh Billow DO Work Phone: [phone]()[phone]-JFFDX-[address] Work Phone: [phone]()[phone] 11:41-0400Body surface area Derived from formula1.61 z4Gespx Billow DO Work Phone: [phone]()[phone]-ARKYX-[address] Work Phone: [phone]()[phone] 11:41-0400Body ihvcob95.78 kgMegan Billow DO Work Phone: VC-AMQYX[address] Work Phone: [phone] 11:41-0400Diastolic blood begqhcoj91 mm[Hg] Charlene Billow DO Work Phone: NC-ZILLF[address] Work Phone: 1([phone] 11:41-0400Systolic blood eeueneso401 mm[Hg] Charlene Billow DO Work Phone: NS-FTJUE[address] Work Phone: 1([phone] 11:41-57745 1Megan Billow DO Work Phone: NA-YHYUP-[address] Work Phone: Comment on above:EGEMMYUGZkuzMxgpn89-27-8743 14:53-0400Body dioaxa897.48 cmMegan Billow DO Work Phone: NV-CWSBY[address] Work Phone: 1([phone] 14:53-0400Body mass index (BMI) [Ratio] 21.77 kg/i4Iosfz Billow DO Work Phone: GZ-WIWNR[address] Work Phone: [phone] 14:53-0400Body surface area Derived from formula1.53 m5Rcypp Billow DO Work Phone: RZ-ZIRXD[address] Work Phone: 1([phone] 14:53-0400Body dveokq17.98 kgMegan Billow DO Work Phone: NL-AWBEI[address] Work Phone: 1(216)[phone] 14:53-0400Diastolic blood aalifacz65 mm[Hg] Charlene Billow DO Work Phone: QM-RZFCP[address] Work Phone: 1([phone] 14:53-0400Heart dhyy772 /minMegan Billow DO Work Phone: LQ-PNRRK-[address] Work Phone: 1([phone] 14:53-0400Systolic blood mm[Hg] Charlene Billow DO Work Phone: CH-JBNPE[address] Work Phone: 1([phone] 14:53-85319 1Megan Billow DO Work Phone: IQ-YUYWX[facility] [address] Work Phone: [phone] on above:GRAVPARAPainScale Encounters Encounter DateEncounter TypeCare ProviderFacilityStart: 09-30-2025 End: 67-16-0270oqmzisvsidYFXZN FAZIONot AvailableStart: 09-30-2025 End: 01-10-8087Ielgyz flowsheetCorey Kiesha DO Work Phone: [facility] OBGYNStart: 09-30-2025 End: 41-59-3938Ucxpam flowsheetCorey Kiesha DO Work Phone: [facility]atti OBGYNStart: 09-28-2025 End: 48-82-5476Faxiyn OnlyConorbert Meza PA-C Work Phone: [phone]-Yyvtj [facility] Comment on above:Essential hypertension affecting in third trimester Start: 09-26-2025 End: 14-12-1037Vjrwxixra Result EncounterSteph Keane NP Work Phone: [facility] External Department UnsolicitedStart: 09-26-2025 End: 75-87-1417Lwhwmhruh Result EncounterSteph Keane NP Work Phone: [facility] External Department UnsolicitedStart: 09-21-2025 End: 10-31-5068sdbwkwkswbOclvrjf E Lavoy PA-C Work Phone: [phone]-Joazd [facility] Comment on above:Insulin controlled gestational diabetes mellitus (GDM) in third trimester (Primary Dx); Essential hypertension affecting in third trimesterStart: 09-21-2025 End: 61-96-7614Vctttzpll encounterVerito EDOUARD Work Phone: [phone]-Pttls Medicine at [facility] Start: 09-19-2025 End: 87-63-4972Jmnkgklbs Result EncounterSteph Keane NP Work Phone: [facility] External Department UnsolicitedStart: 09-19-2025 End: 59-22-5981Sotsnerma Result EncounterSteph Keane NP Work Phone: [facility] External Department UnsolicitedStart: 09-17-2025 End: 60-07-1355Goczcn Breanna CAGE Work Phone: [phone]-Cyddh [facility] at [facility] Comment on above:Essential hypertension affecting in third trimester Start: 09-16-2025 End: 62-01-8152vgpuzgrstoVDBXY FAZIONot AvailableStart: 09-16-2025 End: 34-14-6021Rtsmoazw flow sheetCorey Kiesha DO Work Phone: NOMS Echo OBGYNComment on above:29 weeks gestation of ([facility]); Third trimester ([facility]); Hypertension affecting , antepartum ([facility]); Gestational diabetes mellitus (GDM), antepartum, gestational diabetes method of control unspecified([facility])Start: 09-16-2025 End: 52-88-4891Eqstuh flowsheetCorey Kiesha DO Work Phone: NOMS Patti OBGYNStart: 09-16-2025 End: 75-42-6605Qbtnnd flowsheetCorey Kiesha DO Work Phone: noms Patti OBGYNStart: 09-16-2025 End: 67-70-4170Wzwbhkwjs Nirmal Harris [facility]: 09-15-2025 End: 65-14-2402Msgbgt Tera Meza PA-C Work Phone: [phone]-Drpos Medicine at [facility] Comment on above:Essential hypertension affecting in third trimester Start: 09-10-2025 End: 42-36-8665Fvtsfh outpatient visit 25 minutesMadhuri Monroy MD Work Phone: Materna Medicine [facility] ClintonComment on above: 28 weeks gestation of (Primary Dx); Insulin controlled gestational diabetes mellitus (GDM) in second trimester; Essential hypertension affecting in third trimesterStart: 09-10-2025 End: 95-03-4983bflhilqsrxHUVEPYCX P DOCHEVASt. Rita's Hospitalca [facility] Start: 09-04-2025 End: 63-71-6847Anbbjs consultation new/estab patient 60 Annalee Denise MD Work Phone: [phone]-Hnsri Medicine at [facility] Comment on above:Diet controlled gestational diabetes mellitus (GDM) in second trimester (Primary Dx); Essential hypertension affecting in third trimesterStart: 09-04-2025 End: 02-35-8860wktduqvzumBLAAWL KHURSHIDPKettering Health Prebletart: 09-03-2025 End: 42-07-0066Fxwfewdd flow sheetSteph Keane NP Work Phone: noms Echo OBGYNComment on above:Hypertension affecting , antepartum ([facility]) (Primary Dx); 27 weeks gestation of ([facility]); Second trimester ([facility])Start: 09-03-2025 End: 38-36-4374vcusebwvryMPURRZNT EBERLYNot AvailableStart: 09-03-2025 End: 09-84-1074Qckpgt flowsheetSteph Keane NP Work Phone: noms Echo OBGYNStart: 09-03-2025 End: 06-75-0128Lwtyntjee Result EncounterCorey Kiesha DO Work Phone: noms External Department UnsolicitedStart: 09-03-2025 End: 92-14-4137Kdeutxhdp Result EncounterCorey Kiesha DO Work Phone: noms External Department UnsolicitedStart: 09-01-2025 End: 32-65-6313Evmkwouwk encounterCha Harris RNMaternal- Medicine at [facility] Hospitaltart: 08-29-2025 End: 77-57-2243Fiskjztjt Result EncounterSteph Keane NP Work Phone: noms External Department UnsolicitedStart: 08-29-2025 End: 42-12-3316Cuztvdnqx Result EncounterSteph Keane NP Work Phone: noms External Department UnsolicitedStart: 08-27-2025 End: 48-06-9468nvzqjeitjyHJNOXGZQ EBERLYNot AvailableStart: 08-27-2025 End: 27-83-5035Gxflelfx flow Rom Keane ENVIRONMENTAL PROPERTY ASSESSOR Work Phone: noms Patti OBGYNComment on above:26 weeks gestation of ([facility]); Second trimester ([facility]); induced hypertension, antepartum ([facility]); Gestational diabetes mellitus (GDM) in second trimester, gestational diabetes method of control unspecified ([facility])Start: 08-27-2025 End: 43-35-5736Pmigjo flowsMaurice Keane ENVIRONMENTAL PROPERTY ASSESSOR Work Phone: noms Patti OBGYNStart: 08-27-2025 End: 18-95-7729Ylhgwe Bárbara Keane ENVIRONMENTAL PROPERTY ASSESSOR Work Phone: NOEL Patti OBGYNStart: 08-27-2025 End: 85-41-1890Ndzqqkrqa Result EncounterSteph Keane NP Work Phone: noms External Department UnsolicitedStart: 08-25-2025 End: 65-44-6814Jbwsdllty Result EncounterGeneric External Data ProviderNOMS External Department UnsolicitedStart: 08-25-2025 End: 72-17-8848Roflfypjf Result EncounterGeneric External Data ProviderNOMS External Department UnsolicitedStart: 08-24-2025 End: 22-69-6949vpivociobuMdvhyu M Frey RN Work Phone: [phone]-Qllnq Medicine at [facility] Comment on above:Gestational diabetes mellitus (GDM) in second trimester, gestational diabetes method of control unspecifiedStart: 08-21-2025 End: 40-67-5076Pnjlf abstractingScanning Provider ExternalMaternal- Medicine at [facility]tart: 08-18-2025 End: 80-88-5722Spmam Aura Monroy MD Work Phone: [phone]-Ihbsz Medicine at [facility] Start: 08-15-2025 End: 86-91-6979ketwcphkfkIKRBBSYJ FLORENTINOLYFacility:FTMCStart: 08-12-2025 End: 36-90-3564Dpxkyrat flow sheetCorey Kiesha DO Work Phone: NOGT Patti OBGYNComment on above:24 weeks gestation of ([facility]); Second trimester ([facility]); Elevated glucose tolerance testStart: 08-12-2025 End: 53-23-3484xeutwmnakiOGDEY FAZIONot AvailableStart: 08-12-2025 End: 72-05-0213himuhragqbBryyv R MANISHAOFacility:FTMCStart: 08-01-2025 End: 19-33-6120txzvxebiszB ROBERT KAFTANFacility:FTMCStart: 07-30-2025 End: 92-25-0831Zieglef encounter statusGemartha Beltran DO Work Phone: [facility] Work Phone: Start: 07-30-2025 End: 89-50-0112Vdpvigrh preventive med est patient 18-39 yrsGeorsherita Beltran DO Work Phone: noms [facility] 230Comment on above: Wellness examination (Primary Dx); Hypertension, unspecified type ; Lipid screeningStart: 07-30-2025 End: 65-04-6215qgeunfjxocDTIXUK R KAFTANNot AvailableStart: 07-30-2025 End: 26-22-9564Fqwcpk flowsheetEliceo Beltran DO Work Phone: noms [facility] 230Start: 07-30-2025 End: 47-27-5661Qljwgy flowsEmi Beltran DO Work Phone: noms [facility] 230Start: 07-15-2025 End: 89-03-8742Xjsfdvam flow sheetCorey Kiesha DO Work Phone: NOEB Echo OBGYNComment on above:20 weeks gestation of ([facility]); Second trimester ([facility]); Diabetes mellitus screeningStart: 07-15-2025 End: 82-27-0262zhjidvocenOZZMG FAZIONot AvailableStart: 07-15-2025 End: 49-21-8539Igsgkeogx Result EncounterCorey Kiesha DO Work Phone: NOZJ External Department UnsolicitedStart: 07-15-2025 End: 1995Ppvyhspkp Result EncounterCorey Kiesha DO Work Phone: NOEV External Department UnsolicitedStart: 06-22-2025 End: 06-59-7066Qbthznre flow sheetCorey Kiesha DO Work Phone: NOGA Echo OBGYNComment on above:Sinusitis, unspecified chronicity, unspecified location (Primary Dx); Second trimester ([facility]); 17 weeks gestation of ([facility]); Screening, , for anatomic survey ([facility])Start: 06-22-2025 End: 67-11-6746qvionmfayqHSNMA FAZIONot AvailableStart: 06-22-2025 End: 30-14-1707Iddjou flowsheetCorey Kiesha DO Work Phone: NOHE Patti OBGYNStart: 06-22-2025 End: 10-27-7773Vgztfa flowsheetCorey Kiesha DO Work Phone: noms Patti OBGYNStart: 06-22-2025 End: 54-11-8183Rzikqmty Result EncounterCorey Kiesha DO Work Phone: noms External Department UnsolicitedStart: 05-25-2025 End: 33-79-7342yddhgfyxgsPHGAN FAZIONot AvailableStart: 05-25-2025 End: 06-46-2888Wvqprnea flow sheetCorey Kiesha DO Work Phone: NOBO BCP OBComment on above:Nonintractable episodic headache, unspecified headache type (Primary Dx); Second trimester ([facility]); 13 weeks gestation of ([facility])Start: 05-25-2025 End: 66-60-2604Kyffnt flowsheetCorey Kiesha DO Work Phone: NOBX BCP OBStart: 05-25-2025 End: 39-80-1253Pufhrx flowsheetCorey Kiesha DO Work Phone: NOUQ BCP OBStart: 05-04-2025 End: 53-08-3990Gcifvxhcg Result EncounterCorey Kiesha DO Work Phone: NOMS External Department UnsolicitedStart: 05-04-2025 End: 37-90-8971Rbgjvrrrx Result EncounterCorey Kiesha DO Work Phone: noms External Department UnsolicitedStart: 05-01-2025 End: 26-70-6696Bokwtrmtg Result EncounterCorey Kiesha DO Work Phone: noms External Department UnsolicitedStart: 05-01-2025 End: 07-32-4071Mjaaugppr Result EncounterCorey Kiesha DO Work Phone: NOUC External Department UnsolicitedStart: 05-01-2025 End: 92-06-4538mmjglfjjcvWUYSXT KAFTANNot AvailableStart: 05-01-2025 End: 22-32-0450Hlhlko outpatient visit 5 minutesNoms Bcp Ob Kiesha NurseNOMS BCP OBComment on above:GA: 6p1gSewvm: 03-13-2025 End: 48-91-6145yfqrvpinbtOvjly R FAZIOFacility:FTMCStart: 03-13-2025 End: 90-30-9133Wdrqnds encounter procedureCorey R KIESHA [facility] Start: 02-02-2025 End: 61-50-1599Zvmkuoj encounter procedureDenny Rodríguez MD Work Phone: [facility] [place] Work Phone: Start: 02-02-2025 End: 19-19-8919jligkquclgEdxjq Baxter MD Work Phone: [facility] Work Phone: Start: 01-22-2025 End: 08-08-8073kqkewrqstvEdbcp R FAZIOFacility:FTMCStart: 01-22-2025 End: 67-86-5512Wuisamx encounter procedureCorey R KIESHA [facility] Start: 01-19-2025 End: 97-38-7429Iiibfa outpatient visit 15 minutesCorey Kiesha DO Work Phone: noms BCP OBComment on above:Pain in female genitalia on intercourse; EndometriosisStart: 01-19-2025 End: 43-18-3465lqprgvpkoiQKFZO FAZIONot AvailableStart: 01-19-2025 End: 83-45-6792Gbubea flowsheetCorey Kiesha DO Work Phone: NOOU BCP OBStart: 01-19-2025 End: 82-71-2320Vseqaj flowsheetCorey Kiesha DO Work Phone: noms BCP OBStart: 12-30-2024 End: 62-93-5335fedmzxzunuVACAZT R TREYANNot AvailableStart: 12-30-2024 End: 90-80-7390Ashusg outpatient visit 15 minutesGeorge R Charlotteftan DO Work Phone: NOVM [facility] 230Comment on above:Hypertension, unspecified type (CMS/HCC) (Primary Dx); Paroxysmal tachycardia, unspecified (CMS/HCC); Chronic right shoulder pain; Scapular dyskinesisStart: 08-18-2024 End: 32-56-6821Qgaswl flowsheetCorey Kiesha DO Work Phone: NOMS BCP OBStart: 08-18-2024 End: 23-04-0450Ypqheq flowsheetCorey Kiesha DO Work Phone: noms BCP OBStart: 08-18-2024 End: 73-60-8793Xuvofjity Result EncounterCorey Kiesha DO Work Phone: noms External Department UnsolicitedStart: 08-18-2024 End: 37-57-5863Thhkevm encounter procedureCorey Kiesha DO Work Phone: [facility] Work Phone: Start: 08-18-2024 End: 26-10-3321Bdxpjkpv preventive med est patient 18-39 yrsCorey Kiesha DO Work Phone: noms BCP OBComment on above:Well woman exam with routine gynecological examStart: 07-22-2024 End: 38-40-5636Vrgtsn flowsheetCorey Kiesha DO Work Phone: noms BCP OBStart: 07-22-2024 End: 97-25-0140Brrrvf flowsheetCorey Kiesha DO Work Phone: noms BCP OBStart: 07-22-2024 End: 54-14-4224Izmcbf outpatient visit 15 minutesCorey Kiesha DO Work Phone: noms BCP OBComment on above:Dysmenorrhea, unspecified Start: 70-01-4781Eljlbjbza encounterMegan Billow DO Work Phone: [facility] InstituteStart: 07-88-4208Iiniyzbdx encounterMegan Billow DO Work Phone: [facility] InstituteComment on above:Surgery CancelledStart: 02-13-2024 End: 62-22-9043Foinxevvs Result EncounterCorey Kiesha DO Work Phone: noms External Department UnsolicitedStart: 02-13-2024 End: 24-97-7718Owwwcecpx Result EncounterCorey Kiesha DO Work Phone: noms External Department UnsolicitedStart: 01-15-2024 End: 96-31-8376Gdcvjorjb Result EncounterCorey Kiesha DO Work Phone: noms External Department UnsolicitedStart: 01-15-2024 End: 79-39-1396Mwqrqvkwl Result EncounterCorey Kiesha DO Work Phone: noms External Department UnsolicitedStart: 01-10-2024 End: 67-24-9474Yggupu outpatient visit 15 minutesCorey Kiesha DO Work Phone: NOTT BCP OBComment on above:Menorrhagia with regular cycle; Pelvic pain in female; Uses controlStart: 92-05-3201JkbnswQzxfi Billow DO Work Phone: [facility] HospitalComment on above:Refill Request Start: 59-33-8440lkgdlaiafhDazqh Billow DO Work Phone: Obstetrics/GynecologyComment on above:painStart: 12-10-2023 End: 07-46-2736ytqkhjnytpJBEYF BILLOWFacility:[facility] Campustart: 00-57-4392spfcpnqmkwXwsvc Billow DO Work Phone: REM PIRES MCStart: 27-19-5345Vnkbgdq encounter procedureMegan Billow DO Work Phone: Obstetrics/GynecologyComment on above:office visit Start: 09-12-2023 End: 17-98-7964Pvzadfwnx department patient visitVon Loco [facility] Start: 42-03-3560Nogimd pelvic examinationMegan Billow DO Work Phone: Obstetrics/GynecologyComment on above:Pelvic pain in female (Primary Dx)Start: 26-56-0194tmobhxtifdDmvak Billow DO Work Phone: Obstetrics/GynecologyComment on above:painful periods Start: 08-24-2023 End: 87-73-2632Cnvhrd pelvic examinationErin Himanshu ORDONEZ Work Phone: GynecologyComment on above:High-tone pelvic floor dysfunction (Primary Dx); Chronic pelvic pain in femaleStart: 08-24-2023 End: 03-28-5067Jmbxegahpamn consultation with Kelton Downs APRN.ENGLISH DRAWER Work Phone: ccf [facility] MAINStart: 08-24-2023 End: 43-71-9263irfkeyemmdXXBT REAPERFacility:[facility] Campustart: 67-73-6016jpjdlxiqfjFwgho Billow DO Work Phone: Obstetrics/GynecologyComment on above:painful period Start: 62-85-7102Iwosxzhhj encounterMegan Billow DO Work Phone: GynecologyComment on above:Insurance Authorization ([place]ilissa)Start: 07-16-2023 End: 43-30-7418debkdbedgkKMKZK BILLOWFacility:[facility] Campustart: 06-12-2023 End: 08-44-1715sghibpipphFACGF BILLOWFacility:[facility] Campustart: 06-12-2023 End: 12-93-3860Wssnlfwqkg hospital visit by physicianandra [facility] Suki (I-Stat/1.5t) RadiologyComment on above:Pelvic and perineal pain [R10.2]Start: 05-17-2023 End: 94-13-7946Slphxz pelvic examinationMegan Billow DO Work Phone: Obstetrics/GynecologyComment on above:Endometriosis (Primary Dx); Pelvic and perineal painStart: 05-17-2023 End: 43-33-2471Soqbhqkisbji consultation with patientCharlene Billfanny DO Work Phone: [facility] MODESTOtart: 05-17-2023 End: 88-14-9492migaufahyiCWBEV ALAN BAXTERFacility:[facility] Start: 02-31-8106Vinzmfxql encounterMegan Billow DO Work Phone: GynecologyComment on above:Vaginal BleedingStart: 05-01-2023 End: 82-86-3856aebcowyzijIFOGV ALAN BAXTERFacility:[facility] Start: 05-01-2023 End: 21-62-7994Nqwiwsl encounter procedureJihan Downs APRN.CNP Work Phone: GynecologyComment on above:Chronic pelvic pain in female (Primary Dx); Constipation, unspecified constipation type; High-tone pelvic floor dysfunction; Diastasis of rectus abdominis; Dysmenorrhea; Other specified dyspareuniaStart: 51-01-3087sauvxcdivxSunvi Billow DO Work Phone: Obstetrics/GynecologyComment on above:painfulStart: 01-31-2023 End: 96-06-9326Llhhbblak department [facility] Start: 12-30-2022 End: 59-31-7998Tqmyxzg encounter procedureMem[facility] Start: 12-05-2022 End: 90-85-3880aecjgfajyeMXBQNaval Hospital B[facility]erton SHSStart: 12-05-2022 End: 91-01-2004Kxbvxb outpatient visit [address] [facility] DO Work Phone: [facility] ManorComment on above:Pre- eclampsia, severe, delivered (Primary Dx)Start: 11-28-2022 End: 60-97-2422Wfqbktfngr and management of inpatientRusk Rehabilitation Center SHSStart: 11-28-2022 End: 73-28-5942Mxuaomyciy and management of inpatientIndiana [facility] Work Phone: [facility] POSTPARTUMComment on above:Preeclampsia, severe, third trimester (Primary Dx)Start: 11-28-2022 End: 73-35-8980Ziv-admission assessmentCjrosa DORSEY [facility] Start: 11-27-2022 End: 72-57-2137IS TriageGregrosa DORSEY [facility] Start: 07-14-2022 End: 20-25-4443Swjqmcatc department patient visitKumar Villagomez [facility] Start: 07-14-2022 End: 88-04-8415PE TriageCorepearl POP [facility] Start: 04-25-2022 End: 19-46-9159Kkdwoeh encounter procedureCAMERON DITTY [facility] Start: 04-18-2022 End: 34-43-3643zdjrwphzwzEklnycd Ditty Other [place] [employer] Other Start: 66-99-5295Tqsgjzu encounter procedureCameron DittyFPG GastroenterologyStart: 01-14-6015Diovvy outpatient visit 15 minutes Charlene Rodriguez DO Work Phone: [phone]-ROTYQ-[address] Work Phone: Start: 09-29-2021 End: 00-45-0500eqjswbptxqDYHEM ROWENA POCOSMjames [facility] Hospitaltart: 09-29-2021 End: 80-48-2377wsjulzxnkjNEEQT ROWENA POCOSMmercy hospitaly [facility] HospitalStart: 97-53-3701TFQXHVmfag Billow DO Work Phone: [phone]-DEXIC-[address] Work Phone: Start: 62-36-0631GUZDSGNRDV, Provider: Charlene Rodriguez, Status: Pen, Time: 2:45 Ina Chau MD Work Phone: [phone]-Rbunblf-Dora Work Phone: Start: 12-33-0837Vulou Oswaldo Chau MD Work Phone: [phone]-Yfpfqqa-Dora Work Phone: Procedures DateProcedureProcedure DetailPerforming ClinicianStart: 85-07-8919WE OB BPP W NON-STRESSKristina Elsa ENVIRONMENTAL PROPERTY ASSESSOR Work Phone: Start: 78-19-3239RZ OB BPP W NON-STRESSKristina Elsa ENVIRONMENTAL PROPERTY ASSESSOR Work Phone: Start: 16-29-9570Ulitt dip stick/tablet rgnt non-auto w/o micrscpCorey Kiesha DO Work Phone: Start: 67-44-5414TJX BUNCorey Kiesha DO Work Phone: Start: 42-17-4556GHT URIC ACIDCorey Kiesha DO Work Phone: Start: 92-76-1963DLP ALTCorey Kiesha DO Work Phone: Start: 76-72-2334COP ASTCorey Kiesha DO Work Phone: Start: 91-85-8378UUX CREATININECorey Kiesha DO Work Phone: Start: 11-28-4916IBY URINE T PROTEIN CREAT RATIOCorey Kiesha DO Work Phone: Start: 15-60-6685Ahxkj dip stick/tablet rgnt non-auto w/o micrscpKristina Elsa ENVIRONMENTAL PROPERTY ASSESSOR Work Phone: Start: 49-90-2901SUG TOTAL PROTEIN 24 HOUR URINE Generic External Data ProviderStart: 03-76-2352EO OB BPP W NON-STRESS Steph Elsa ENVIRONMENTAL PROPERTY ASSESSOR Work Phone: Start: 21-83-8504QBS URINE T PROTEIN CREAT RATIO Generic External Data ProviderStart: 50-62-5704LTI CBC WITH AUTO DIFFGeneric External Data ProviderStart: 47-69-4451Nirhy dip stick/tablet rgnt non-auto w/o micrscpKristina Elsa ENVIRONMENTAL PROPERTY ASSESSOR Work Phone: Start: 20-72-3716Szsbhxez identified in Urine by CultureGeneric External Data ProviderStart: 31-35-7164Xrvvjkb quantitative blood xcpt reagent stripNot In System Ref ProvStart: 10-10-5148CECYXB HOUR GLUCOSE TOLERANCE 100 GM LOADNot In System Ref ProvStart: 97-72-8162Ogyjf dip stick/tablet rgnt non-auto w/o micrscpCorey Kiesha DO Work Phone: Start: 35-99-0336SYL 1H POST 50G LOADNot In System Ref ProvStart: 70-38-0236QWB, SERUM, OPEN SPINA BIFIDACorey Kiesha DO Work Phone: Start: 33-29-7534Vajbt dip stick/tablet rgnt non-auto w/o micrscpCorey Kiesha DO Work Phone: Start: 02-08-8490NOMDKGYAB VAGINITIS (HTRX)Nathan Kiesha DO Work Phone: Start: 20-34-0131Qaeaa dip stick/tablet rgnt non-auto w/o micrscpCorey Kiesha DO Work Phone: Start: 59-04-5259Xsmsh dip stick/tablet rgnt non-auto w/o micrscpCorey Kiesha DO Work Phone: Start: 71-23-4768Sukbdyic screenMadhuri Monroy MD Work Phone: Start: 46-39-3125Ozik scrn 1+ class nonchromoNot In System Ref ProvStart: 12-91-0702Aaksyalmnr glycosylated c2wQubnk R Kiesha DO Work Phone: Start: 30-08-1806Iwmtqogdx c antibodyNot In System Ref ProvStart: 97-69-7299PTA 1&2 AB/AG SCREEN (P24 AG)Not In System Ref ProvStart: 13-56-5258Lkxt ia hepatitis b surface antigenNot In System Ref ProvStart: 81-90-5295USTG AND SCREENNot In System Ref ProvStart: 50-58-3685ICP TESTCorey Kiesha DO Work Phone: Start: 66-28-8532Lxtmq dip stick/tablet rgnt non-auto w/o micrscpCorey Kiesha DO Work Phone: Start: 85-51-0842US OB TRANSVAGINALCorey Kiesha DO Work Phone: Start: 03-00-2296ZFN,APTIMA HPV,AGE GDLNCorey Kiesha DO Work Phone: Start: 52-78-9880Vvvvyvhbnlw observation [Identifier] in Cervix by Cyto stainCorey Kiesha DO Work Phone: Start: 57-18-6915BYO 12-LEADCorey [employer] DO Work Phone: Start: 80-14-7011NL PELVIS W/ TRANSVAGINALCorey Kiesha DO Work Phone: Start: 68-45-4055Npsp cerv/vag auto thin layer prep mnl screenCorey Kiesha DO Work Phone: Start: 31-80-9072Rcj pelvis w/o & w/contrast material Charlene Kuldip DO Work Phone: Start: 04-11-6810Tjbqr count platelet automatedMichael O'Cormier OPERATOR AUTOMATED PROCESS - [employer] Work Phone: Start: 75-22-9410Bxttj count platelet automatedCassie Constantino MD Work Phone: Start: 82-20-5032Fbfxo streptococcus group b amplified probe tqCassie Constantino MD Work Phone: Start: 67-83-7465XXK and Rh group [Type] in Blood by Confirmatory Carmine Constantino MD Work Phone: Start: 22-72-3498Avlyj typing serologic aboRevonne Constantino MD Work Phone: Start: 63-70-9803Asssfovlkiuyt metabolic panelCassie Constantino MD Work Phone: Start: 70-08-7092Gddjqhez hiv-1&hiv-2 single result Megadyne [phone]: 97-75-9400Eeng ia hepatitis b surface antigenMegadyne [id number]: 67-64-1442ZooddfzpwbOOONLFT DITTY Start: 08-30-2020 End: 39-60-9790Wpzxprfu screenComment on above:Performed By: #### T+S #### [facility] [address] [place], [place] [address]Ojbxk Comment: TEST TYPE + SCREEN WAS CANCELLED, 08/30/2020 13:37 JOP.Performed By: #### T+S #### [facility] [address] [place], [place] [address]Zyjqr: 07-55-4459UYHAB SHOULDER OPEN DISTAL CLAVICLE EXCISION 1CAMERON [employer] Comment on above:RIGHT SHOULDER OPEN DISTAL CLAVICLE EXCISIONRIGHT SHOULDER OPEN DISTAL CLAVICLE EXCISIONAppendectomyCAMERON [employer] betamethasone (substance)Fredi WILLIAN comment on above:Dose #1: 11/27/22ColonoscopyCAMERON DIComputerlogy Endoscope, device (physical object)[place] LaparoscopyTeri Chau MD Work Phone: Plan of Treatment DateCare ActivityDetailAuthorStart: 95-81-3900Lxfuim Vaccines (1 of 2)Zoster Vaccines (1 of 2)[facility] HealthStart: 98-71-7383Aflbsgrzu for malignant neoplasm of cervixNOMS HealthcareStart: 12-69-8564Woctbtcll for malignant neoplasm of cervixPap SmearNOMS HealthcareStart: 66-03-2814Guefd BMI ScreeningAdult BMI ScreeningProCleveland Clinic Fairview Hospitalca Health SystemStart: 00-81-8949Yiqymwa ScreeningTobacco ScreeningProMarymount Hospitaltart: 14-56-4466Hoaec BMI ScreeningAdult BMI ScreeningChillicothe Hospital SystemStart: 61-83-5498Dmrgt BMI ScreeningAdult BMI ScreeningPending sale to [facility] Healthtart: 10-08-2025 End: 76-99-7091Dzycgad encounter jyzcyeuhs29/13/2025 8:00 AM EST Appointment [facility] [place] [address] [place] [address] Pfwpfaky Medicine PlymouthStart: 10-05-2025 End: 60-67-2802Gocqzev encounter tbbjlusuo92/10/2025 3:00 PM EST Office Visit Maternal- Medicine at [facility] [address] [place] [phone] Kayleigh Meza, PA-C [address] [address] [facility]: 10-05-2025 End: 61-56-2496Elfuifqocfch consultation with katxsrm8410/05/2025 3:00 PM EST Telemedicine Maternal- Medicine at [facility] [address] [place] [phone] Kayleigh Meza, PA-C [address] [address] [facility] Hospitaltart: 97-54-8632QUD ( or age 60+ yrs) (1 - Risk 1-dose series)RSV ( or age 60+ yrs) (1 - Risk 1-dose series)[facility]: 09-30-2025 End: [id number] encounter procedureNOMS Echo OBGYNComment on above: ArrivedStart: 09-16-2025 End: [id number] biophysical profile w non stress testUS biophysical profile w non stress test Imaging Routine Gestational diabetes mellitus (GDM),antepartum, gestational diabetes method of control unspecified ([facility] Expected: 09/16/2025, Expires: 09/16/2026NOMS HealthcareComment on above:Expected: 09/16/2025, Expires: 09/16/2026Start: 09-15-2025 End: [id number] encounter vaqkvxxkb19/21/2025 2:50 PM EDT Routine NOMShalonda MOODY [address] [place], [id number] [place] Gutierrez PA [address] [place] [address] NOMShalonda FLOREStart: 09-10-2025 End: 10-39-4224Uefpfpipqvym consultation with lpursxz8609/10/2025 11:00 AM EDT Telemedicine [facility] [place] [address] [phone] Madhuri Monroy MD [address], [address] [place] [address] [facility] Medicine PlymouthStart: 09-10-2025 End: 87-55-6717Ecvamvp encounter rnfjhogfg38/16/2025 9:45 AM EDT Appointment [facility] [place] [address] [phone] Medicine PlymouthStart: 09-07-2025 End: 80-53-5728Obbogvb encounter procedureNOMS BCP OBStart: 09-04-2025 End: 44-21-7891Cbyevfs encounter nllzxnuns87/10/2025 3:00 PM EDT Office Visit Maternal- Medicine at [facility] [address] [place] [address] Mine Denise MD [address], [address] [place] [address] [id number] [facility] 09-[facility]-2025 End: 36-05-2829Lhdlexr encounter procedureNOMS [place] OBGYNComment on above: ArrivedStart: 08-27-2025 End: 71-24-6722Swhqwnh encounter mcncaljkl33/02/2025 3:20 PM EDT Routine NOMShalonda MOODY [address] [place], [id number] Steph Keane, ENVIRONMENTAL PROPERTY ASSESSOR [address] [place] [phone] NOMShalonda [place] JAYLONGYNStart: 08-27-2025 End: 77-27-1588Pswzfir aminotransferase [Enzymatic activity/volume] in Serum or PlasmaALT Lab Routine induced hypertension, antepartum (HHS-HCC) Expected: 08/27/2025 (Approximate), Expires: 08/27/2026NONY HealthcareComment on above:Expected: 08/27/2025 (Approximate), Expires: 08/27/2026Start: 08-27-2025 End: 76-94-4822Nsgkilzqk aminotransferase [Enzymatic activity/volume] in Serum or PlasmaAST Lab Routine induced hypertension, antepartum (HHS-HCC) Expected: 08/27/2025 (Approximate), Expires: 08/27/2026NONY HealthcareComment on above:Expected: 08/27/2025 (Approximate), Expires: 08/27/2026Start: 08-27-2025 End: 18-51-5472MCS W Auto Differential panel - BloodCBC and differential Lab Routine induced hypertension, antepartum (HHS-HCC) Expected: 12/2024 (Approximate), Expires: 08/27/2026NONY HealthcareComment on above: Expected: 08/27/2025 (Approximate), Expires: 08/27/2026Start: 08-27-2025 End: 08-37-1544Smcjvkxgwj [Mass/volume] in Serum or PlasmaCreatinine Lab Routine induced hypertension, antepartum (HHS-HCC) Expected: 08/27/2025 (Ap proximate), Expires: 08/27/2026[facility] Work Phone: comment on above:Expected: 08/27/2025 (Approximate), Expires: 08/27/2026Start: 08-27-2025 End: 15-43-7276Wwwhhfj dehydrogenase [Enzymatic activity/volume] in Serum or Plasma by Lactate to pyruvate reactionLactate dehydrogenase Lab Routine induced hypertension, antepartum (HHS-HCC) Expected: 08/27/2025, Expires: 08/27/2026[facility] HealthcareComment on above:Expected: 08/27/2025, Expires: 08/27/2026Start: 08-27-2025 End: 18-82-1186Ynoyqae, urine, 24 hourProtein, urine, 24 hour Lab Routine induced hypertension, antepartum (HHS-HCC) Expected: 08/27/2025 (Approximate), Expires: 08/27/2026[facility] HealthcareComment on above:Expected: 08/27/2025 (Approximate), Expires: 08/27/2026Start: 08-27-2025 End: 58-53-1447Zq and pttPt and ptt Lab Routine induced hypertension, antepartum (HHS-HCC) Expected: 08/27/2025, Expires: 08/27/2026[facility] Healthcare Comment on above:Expected: 08/27/2025, Expires: 08/27/2026Start: 08-27-2025 End: 13-45-6736Wayro [Mass/volume] in Serum or PlasmaUric acid Lab Routine induced hypertension, antepartum (HHS-HCC) Expected: 08/27/2025 (Bouchra roximate), Expires: 08/27/2026[facility] HealthcareComment on above:Expected: 08/27/2025 (Approximate), Expires: 08/27/2026Start: 08-27-2025 End: 19-57-4329Thmy nitrogen [Mass/volume] in Serum or PlasmaBUN Lab Routine induced hypertension, antepartum (HHS-HCC) Expected: 08/27/2025, Expires:08/27/2026[facility] HealthcareComment on above:Expected: 08/27/2025, Expires: 08/27/2026Start: 08-27-2025 End: 15-85-1645FI biophysical profile w non stress testUS biophysical profile w non stress test Imaging Routine induced hypertension, antepartum (HHS-HCC) Gestational diabetes mellitus (GDM) in second trimester, gestational diabetes method of control unspecified ([facility]) Expected: 08/27/2025 (Approximate), Expires: 02/25/2026NONY HealthcareComment on above:Expected: 08/27/2025 (Approximate), Expires: 02/25/2026Start: 08-24-2025 End: 59-92-8953aclwnnawhq68/29/2025 1:30 PM EDT Support Visit Maternal- Medicine at [facility] [address] [place] [address] Teena Sarmiento RN [address] [facility], [address] [place] [address] Kerline Augustin, RAYNA [address] [facility] [address] [facility] [place] [address] [facility] 08-24-2025 End: 61-47-5376Qvjcxxm encounter uemiihzqw65/29/2025 11:00 AM EDT Office Visit NOMS BCP OB [address] [place] [phone] Nathan Pop, DO [address] [place] [address] NOMS BCP OBStart: 08-12-2025 End: 12-37-0456Jvnujcs encounter iabbcrpdb37/17/2025 2:40 PM EDT Routine NOMS Patti OBGYN [address] [place], [phone] Nathan Pop, DO [address] [place] [address] LANETTE [place] OBGYNStart: 08-12-2025 End: 33-77-8720Bhgqlvsjnja of glucose 3 hours after glucose challenge for glucose tolerance testGlucose tolerance, 3 hours Lab Routine Elevated glucose tolerance test Expected: 08/12/2025 (Approximate), Expires: 08/12/2026[facility] Work Phone: comment on above:Expected: 08/12/2025 (Approximate), Expires: 08/12/2026Start: 08-12-2025 End: 74-01-0055Qhfbrwtnpkfr / ancillary services blraxwbtxt12/17/2025 2:00 PM EDT Ancillary Procedure LANETTE YOUNGN [address] [place] [phone] NOMS Patti OBGYNStart: 07-31-2025 End: 09-87-3172WCA W Auto Differential panel - BloodCBC and differential Lab Routine Hypertension, unspecified type Wellness examination Expected: 07/31/2025 (Approximate), Expires: 08/29/2025[facility] Healthcare Work Phone: Comment on above:Expected: 07/31/2025 (Approximate), Expires: 08/29/2025Start: 07-31-2025 End: 08-18-3077Frhnjcfcteewd metabolic 2000 panel - Serum or PlasmaComprehensive metabolic panel Lab Routine Hypertension, unspecified type Wellness examination Expected: 07/31/2025 (Approximate), Expires: 08/29/2025NONY HealthcareComment on above:Expected: 07/31/2025 (Approximate), Expires: 08/29/2025Start: 07-31-2025 End: 45-85-7050Skhlq 1996 panel - Serum or PlasmaLipid panel Lab Routine Wellness examination Lipid screening Expected: 07/31/2025 (Approximate), Exp ires: 08/29/2025[facility] HealthcareComment on above:Expected: 07/31/2025 (Approximate), Expires: 08/29/2025Start: 07-30-2025 End: 99-08-5001Onmrtyi encounter rllnfykit52/04/2025 3:40 PM EDT Office Visit NOMS [facility] [address] [place] [address] Eliceo Beltran, DO [address] [place] [address] ArrivedNOMS [facility] 230Comment on above:ArrivedStart: 20-06-7408PXENV-19 Vaccine ( season)COVID-19 Vaccine ( season)NOMS HealthcareStart: 07-27-2025 Influenza vaccinationNONY HealthcareStart: 07-15-2025 End: 53-08-4479Pxpfrxs encounter zabgxlcwv70/20/2025 3:30 PM EDT Routine NOMShalonda [place] OBMICHELLEN [address] [place], [id number] Nathan Pop DO [address] [place] [address] NOMShalonda [place] OBGYNStart: 07-15-2025 End: 79-64-0614Undbgkiqbfao / ancillary services ibvxdmnzuf25/20/2025 2:30 PM EDT Ancillary Procedure NOMShalonda IYERGYN [address] [place] [address] NOMS Patti OBGYNStart: 07-15-2025 End: 41-07-5752KZM panel - Blood by Automated countCBC Lab Routine Diabetes mellitus screening Expected: 07/15/2025 (Approximate), Expires: 07/15/2026[facility] Work Phone: comment on above:Expected: 07/15/2025 (Approximate), Expires: 07/15/2026Start: 07-15-2025 End: 06-40-4754Fhersdpiavs of glucose 1 hour after glucose challenge for glucose tolerance testGlucose tolerance, 1 hour Lab Routine Diabetes mellitus screening Expected: 07/15/2025 (Approximate), Expires: 07/15/2026NOCox BransonComment on above:Expected: 07/15/2025 (Approximate), Expires: 07/15/2026Start: 06-22-2025 End: 30-00-5803Byykayi encounter djivuocem92/28/2025 2:10 PM EDT Routine NOMS Patti OBGYN [address] [place], [phone] Nathan Pop, DO [address] [place] [address] ArrivedNOKindred HealthcareEcho OBGYNComment on above:ArrivedStart: 06-22-2025 End: 85-34-5075Bsbqw fetoprotein, maternalAlpha fetoprotein, maternal Lab Routine Second trimester ([facility]) 17 weeks gestation of ([facility]) Expected: 06/22/2025 (Approximate), Expires: 12/23/2025[facility] Comment on above:Expected: 06/22/2025 (Approximate), Expires: 12/23/2025Start: 06-22-2025 End: 57-32-2696LY for pregnancyUS OB 14+ weeks anatomy scan Imaging Routine Screening, , for anatomic survey ([facility]) Expected: 06/22/2025, Expires: 09/22/2025[facility] Work Phone: comment on above:Expected: 06/22/2025, Expires: 09/22/2025Start: 05-25-2025 End: 30-23-1510Yvzlyug encounter /30/2025 2:40 PM EDT Routine NOMS BCP OB [address] [place] [address] Nathan Pop, DO [address] [place] [address] NOMS BCP OBStart: 05-01-2025 End: 23-14-4969RNY/RhABO/Rh Lab Routine Missed menses , unspecified gestational age Expected: 05/01/2025 (Approximate), Expires: 05/01/2026NOMS HealthcareComment on above:Expected: 05/01/2025 (Approximate), Expires: 05/01/2026Start: 05-01-2025 End: 24-41-4008Cxgcj type and Indirect antibody screen panel - BloodType and screen Lab Routine Missed menses , unspecified gestational age Expected: 05/01/2025 (Approximate), Expires: 05/01/2026[facility] Work Phone: comment on above:Expected: 05/01/2025 (Approximate), Expires: 05/01/2026Start: 05-01-2025 End: 36-26-2489Eryvm of abuse panel - Urine by Screen methodRapid drug screen, urine Lab Routine , unspecified gestational age Encounter for supervision of normal first in first trimester Expected: 05/01/2025 (Approximate), Expires: 05/01/2026NOMS HealthcareComment on above:Expected: 05/01/2025 (Approximate), Expires: 05/01/2026Start: 01-19-2025 End: 06-07-8511Jblpfnu encounter procedureNOMS BCP OBComment on above:Arrived Start: 01-19-2025 End: 62-19-5348KymansjxluhlBtxjxhgbtevv Lab Routine Pain in female genitalia on intercourse Endometriosis Expected: 01/19/2025(Approximate), Expires: 01/19/2026 [facility] Work Phone: comment on above:Expected: 01/19/2025 (Approximate), Expires: 01/19/2026Start: 08-18-2024 End: 08-47-6969Brkqrrd encounter procedureNOMS BCP OBComment on above:Arrived Start: 18-70-0532Gtzhqzgbr vaccinationCleveland ClinicStart: 07-22-2024 End: 75-81-5584AD for pregnancyUS PELVIS-TRANSVAG IF INDICATED Imaging Routine Dysmenorrhea, unspecified Expected: 07/22/2024 (Approximate), Expires: 07/22/2025[facility] Work Phone: comment on above:Expected: 07/22/2024 (Approximate), Expires: 07/22/2025Start: 06-23-2024 End: 48-72-6690Cepbczo encounter wyvkhyhab67/29/2024 10:30 AM EDT Office Visit Obstetrics/Gynecology [address] [place] [address] Charlene Rodriguez DO [address] [place] [address] 2 WEEK POST OPObstetrics/GynecologyComment on above:2 WEEK POST OPStart: 05-27-2024 End: 89-55-6466Upfoxbnma to same day surgery rydtxp5505/27/2024 7:30 AM EDT - 05/27/2024 9:30 AM EDT Surgery [facility] [address] [place] [address] Charlene Rodriguez DO [address] [place] [address] LAPAROSCOPY FULGURATION OR EXCISION OF LESIONS OF THE OVARY PELVIC VISCERA OR PERITONEAL SURFACE BY ANY METHODSycamore Medical Center SurgeryComment on above:LAPAROSCOPY FULGURATION OR EXCISION OF LESIONS OF THE OVARY PELVIC VISCERA OR PERITONEAL SURFACE BYANY METHODStart: 05-27-2024 End: 49-93-9606Ucom fulg/exc ovary viscera/peritoneal surfaceLAPAROSCOPY FULGURATION OR EXCISION OF LESIONS OF THE OVARY PELVIC VISCERA OR PERITONEAL SURFACE BYANY METHOD Endometriosis 05/27/2024 7:30 AM EDTME ORStart: 05-27-2024 Subsequent hospital visit by lcdtislkh83/02/2024 7:30 AM EDT Hospital Encounter [facility] [address] [place] [address] Charlene Rodriguez DO [address] [place] [address] [phone] (F ax) Endometriosis [N80.9][facility] SurgeryComment on above:Endometriosis [N80.9]Start: 98-23-8209Cenmeclwj vaccinationInfluenza Vaccine (#1)NOMS HealthcareComment on above:Postponed from 07/27/2023 (Patient Refused)Start: 05-20-2024 End: 32-52-0754kjjpjjkjze18/25/2024 10:00 AM EDT [facility] FRENCH TUTOR UROL PIRES MOB [address] [address] Pires, Uro Social Service Director Nurse [address] [place] [address] RN GLENNGYN UROL PIRES MOBComment on above:RN TEACHINGStart: 04-22-2024 End: 21-24-7628Fbgvzgf encounter sbwuehdpv51/28/2024 9:00 AM EDT Office Visit NOMS SEP [address] [place] [address] Denny Rodríguez MD [address] [place] [address] NOMS SEP FMStart: 88-55-4163XEkI,Tdap and Td Vaccines (7 - Td or Tdap)DTaP,Tdap and Td Vaccines (7 - Td or Tdap)[facility]: 24-49-9718JUaZ/Tdap/Td Vaccines (7 - Td or Tdap)DTaP/Tdap/Td Vaccines (7 - Td or Tdap)[facility]Start: 80-52-4107Hlzzm microalbumin profileDTaP,Tdap,Td Vaccine (7 - Td or Tdap)[facility]: 01-30-2024 End: 58-78-9912Zlgesew encounter srkuzjqmj02/06/2024 11:10 AM EST Consult NOMS [facility] OB [address] [place] [address] Nathan Pop, [address] [place] [address] NOMS BCP OBStart: 01-15-2024 End: 68-17-5331Xalhjdfnrdra / ancillary services qhgxtvvyyk48/20/2024 8:00 AM EST Ancillary Procedure NOMS BCP OB [address] [place] [address] NOMS BCP OBStart: 01-10-2024 End: 36-98-1657OR for pregnancyUS PELVIS-TRANSVAG IF INDICATED Imaging Routine Pelvic pain in female Expected: 01/10/2024 (Approximate), Expires: 01/10/2025 [facility] Healthcare Work Phone: comment on above:Expected: 01/10/2024 (Approximate), Expires: 01/10/2025Start: 18-33-0011Meestqtfmx Health ScreeningBehavioral Health ScreeningGalion Community Hospitaltart: 30-91-9198Rbhjgzbpha AssessmentDepression AssessmentGalion Community Hospitaltart: 93-17-9098Gjzab-19 Vaccine () Covid-19 Vaccine ()[facility]: 11-87-6953Ixyjkcqsd vaccinationGalion Community Hospitaltart: 29-52-5668FGAXEXGRMW ASSESSMENTDEPRESSION ASSESSMENTGalion Community Hospitaltart: 04-70-1878Bvbmescme vaccinationInfluenza Vaccine (#1)[facility] HospitalStart: 75-34-6761EUZ, Provider: Charlene Rodriguez, Status: Pen, Time: 1:30 PMFUV, Provider: Charlene Rodriguez, Status: Pen, Time: 1:30 PM DC-VEHKG-Ypncxg [address] Work Phone: Start: 62-89-0413RMN, Provider: Charlene Rodriguez, Status: Pen, Time: 11:15 AMFUV, Provider: Charlene Rodriguez, Status: Pen, Time: 11:15 AM RB-PERMH-Afzqze [address] Work Phone: Start: 17-33-9527EVQ TESTINGPAP TESTINGGalion Community Hospitaltart: 84-17-1292Fkdtboltk for malignant neoplasm of cervixGalion Community Hospitaltart: 32-67-3391KBcY,Tdap and Td Vaccines (1 - Tdap)DTaP,Tdap and Td Vaccines (1 - Tdap)[facility] SystemStart: 22-11-5090KExZ/Tdap/Td Vaccines (1 - Tdap)DTaP/Tdap/Td Vaccines (1 - Tdap)[facility] Hospitalart: 56-23-3917Fqxxx microalbumin profileGalion Community Hospitaltart: 15-11-6605Vjumi BMI Follow Up Plan Adult BMI Follow Up PlanPending sale to [facility]htart: 13-45-6418Tshez BMI ScreeningAdult BMI ScreeningProMarymount Hospitaltart: 06-76-7592DEIMWZ PCP TEAM CHRONIC DISEASE VISITANNUAL PCP TEAM CHRONIC DISEASE VISITOhio[facility] Start: 63-70-0268YT CONTROLLED (<130/80)BP CONTROLLED (<130/80)[facility] Start: 77-64-7902QMQJCKTBV C SCREENINGHEPATITIS C SCREENINGOhiohealth Berger Hospital Start: 46-14-1798Lbxyojoii C screeningHepatitis C ScreeningOhiohealth Berger Hospital Start: 80-26-5053QYQ SCREENINGHIV SCREENINGGalion Community Hospitaltart: 85-15-4595OII screeningHIV ScreeningGalion Community Hospitaltart: 36-59-4784Hsskcie of varicella vaccinationVaricella Vaccines (1 of 2 - 13+ 2-dose series)[facility]Start: 16-95-6860Kctxsqggwt ScreeningDepression ScreeningPending sale to [facility]htart: 82-53-4294Dcvjhfe ScreeningTobacco ScreeningPending sale to [facility]htart: 37-83-0532Yyrkwnnhf vaccinationVaricella Vaccines (1 of 2 - 2-dose childhood series)[facility] HospitalStart: 93-86-1198ATL Vaccines (1 of 1 - Standard series)MMR Vaccines (1 of 1 - Standard series)[facility] HospitalStart: 12-12-8756Zaesjfhmv vaccinationVaricella Vaccines (1 of 2 - 2-dose childhood series)[facility] Start: 71-73-5039RVEVN-19 VACCINE (#1)COVID-19 VACCINE (#1)[facility] Start: 55-11-4624PAPOXOEVB B (1 of 3 - 3-dose series)HEPATITIS B (1 of 3 - 3- dose series)[facility]: 21-80-1073Olfrrdtar B Vaccine (1 of 3 - 3- dose series)Hepatitis B Vaccine (1 of 3 - 3-dose series)[facility]: 56-30-2182Gucvsoliq B Vaccines (1 of 3 - 3-dose series)Hepatitis B Vaccines (1 of 3 - 3-dose series)[facility] HospitalStart: 87-86-6780Atyuk panelLipid PanelSumma HealthBacteria identified in Urine by CultureUrine culture Microbiology Routine Missed menses Ordered: 05/01/2025[facility] HealthcareComment on above:Ordered: 05/01/2025BC W Auto Differential panel - BloodCBC and differential Lab Routine Missed menses , unspecified gestational age Ordered: 05/01/2025[facility] HealthcareComment on above:Ordered: 05/01/2025ytology Cervical or vaginal smear or scraping studyPap Smear Pathology and Cytology Routine Well woman exam with routine gynecological exam Ordered: 08/18/2024[facility] Healthcare Work Phone: comment on above:Ordered: 08/18/2024Hemoglobin A1c/Hemoglobin.total in BloodHemoglobin A1c Lab Routine Missed menses , unspecified gestational age Ordered: 05/01/2025[facility] HealthcareComment on above: Ordered: 05/01/2025Hepatitis B virus surface Ag [Presence] in Serum or Plasma by ImmunoassayHepatitis B surface antigen Lab Routine Missed menses , unspecified gestational age Ordered: 05/01/2025[facility] HealthcareComment on above: Ordered: 05/01/2025Hepatitis C virus Ab [Presence] in Serum or Plasma by ImmunoassayHepatitis C antibody Lab Routine Missed menses , unspecified gestational age Ordered: 05/01/2025[facility] HealthcareComment on above:Ordered: 05/01/2025HIV-1/HIV-2 antigen/antibody combination immunoassayHIV-1 and HIV-2 antibodies Lab Routine Missed menses , unspecified gestational age Ordered: 05/01/2025[facility] HealthcareComment on above:Ordered: 05/01/2025 End: 03-64-1747Qwk pelvis w/o & w/contrast materialMRI FEMALE PELVIS WO/W IVCON Radiology Routine Pelvic and perineal pain 1 Occurrences starting 05/17/2023 until [facility] Work Phone: Comment on above:1 Occurrences starting 05/17/2023 until 4Reagin Ab [Presence] in Serum by RPRRPR Lab Routine Missed menses , unspecified gestational age Ordered: 05/01/2025[facility] Comment on above:Ordered: 05/01/2025Rubella antibody, IgGRubella antibody, IgG Lab Routine Missed menses , unspecified gestational age Ordered: 04/2025[facility] RoadComment on above:Ordered: 05/01/2025 End: 77-73-5608BqfokvWashington University Medical Center Work Phone: Comment on above:Once (Lab) for 1 Occurrences starting 11/30/2022 until 11/30/2022, 1 completed End: 82-37-5130VP for pregnancyUS OB follow up transabdominal approach Imaging Routine Gestational diabetes mellitus (GDM), antepartum, gestational diabetes method of control unspecified ([facility]) every 4 weeks for 2 Occurrences starting 09/16/2025 until 12/17/2025[facility] Work Phone: comment on above:every 4 weeks for 2 Occurrences starting 09/16/[address] [place] [address] [place] Immunizations Immunization DateImmunizationNotesCare NsilbthcEclttpfy54-33-2855bededkwnh A vaccine, adult dosageCorey Kiesha DO Work Phone: [facility]ry RoadFqyyjywfps21-44-9369nifaz papilloma virus vaccine, quadrivalentCorey Kiesha DO Work Phone: [facility] RoadOhudhfslcu40-79-9923eqiajukyh, seasonal, injectable, preservative freeCorey Kiesha DO Work Phone: [facility] RoadEbiozoeibr62-18-9647kvpvaswia virus vaccine, unspecified formulationGina Moschella DO Work Phone: [facility] HospitalUegzqy62-35-6689yizps papilloma virus vaccine, quadrivalentCorey Kiesha DO Work Phone: [facility] RoadAcjgtcvbvu29-49-7052eacbtwwdt A vaccine, adult dosageCorey Kiesha DO Work Phone: [facility] RoadPkluihbejz04-77-7886bjexk papilloma virus vaccine, quadrivalentCorey Kiesha DO Work Phone: [facility] RoadNdmwvlxzqp75-78-3920dysyjso toxoid, reduced diphtheria toxoid, and acellular pertussis vaccine, adsorbedCorey Kiesha DO Work Phone: [phone]-[facility]–Barry RoadSwbnjylynv66-90-7172tzqlkpotrqhyt polysaccharide (groups A, C, Y and W-135) diphtheria toxoid conjugate vaccine (MCV4P)Nathan Kiesha DO Work Phone: [facility]Barry RoadDilpdhoglm51-71-5183icemvoplpc, tetanus toxoids and acellular pertussis vaccine, unspecified formulationCorey Kiesha DO Work Phone: [phone]ry RoadCrirehsndb34-97-1396hvmorjx, mumps and rubella virus vaccineCorey Kiesha DO Work Phone: [phone]ry RoadEreaylnypl82-95-8929lygqklahak vaccine, inactivatedCorey Kiesha DO Work Phone: [phone]-[facility]Barry RoadLashgqlzbe30-15-8557qfsdmawjzj, tetanus toxoids and acellular pertussis vaccine, unspecified formulationCorey Kiesha DO Work Phone: [phone]-[facility]–Barry RoadCefgoiwvch95-08-2007UVC-Aubkhuaubrl influenzae type b conjugate vaccineCorey Kiesha DO Work Phone: [phone]–Barry RoadXlarzrvnuj29-98-1355luwihxxss B vaccine, pediatric or pediatric/adolescent dosageCorey Kiesha DO Work Phone: [phone]–Barry RoadCwxgnbujac94-62-9065adebaqh, mumps and rubella virus vaccineCorey Kiesha DO Work Phone: [phone]–Barry RoadQuevvyjfte22-03-7813dhsapivge poliovirus vaccine, live, oralCorey Kiesha DO Work Phone: [phone]ry RoadOlthfkeljr54-30-2829XIE-Kqgfgsvwshg influenzae type b conjugate vaccineCorey Kiesha DO Work Phone: [phone]-[facility]–Barry RoadApqxsriaqx76-72-2467qrwakyujh B vaccine, pediatric or pediatric/adolescent dosageCorey Kiesha DO Work Phone: [phone]–Barry RoadYoxoezutoq40-46-2213emvowdshi poliovirus vaccine, live, oralCorey Kiesha DO Work Phone: [phone]–Barry RoadYgwtvroeih35-66-4117KBZ-Mmutqbdygyt influenzae type b conjugate vaccineCorey Kiesha DO Work Phone: [facility]OCox BransonUxqymsnixw61-90-4178xjkvatdfg B vaccine, pediatric or pediatric/adolescent dosageCorey Kiesha DO Work Phone: NOCox BransonWlihxvnimf62-74-5078qnrndtwwv poliovirus vaccine, live, oralCorey Kiesha DO Work Phone: [facility] HealthcareNEGATED: Highlighted row has not occurred!18-08-6724nrzjepb, mumps and rubella virus vaccineKatherine Allen DO Work Phone: [facility] HealthComment on above:Deferred: Other - Rubella ImmuneNEGATED: Highlighted row has not occurred!60-94-2240vfmwnvb toxoid, reduced diphtheria toxoid, and acellular pertussis vaccine, adsorbedKatcarlos Ryder DO Work Phone: [facility] HealthComment on above:Deferred: No longer needed - Refused Tdap vaccine. Payers DatePayer CategoryPayerPolicy [id number] Managed Care - [employer] [id number] [facility] MEDICAID [id number] [id number] [id number]bufc60-65-2515 [id number] Health Insurance [id number]551[id number] [id number] Health [id number] 2.16.840.1.827068.3.579.2.174 [id number] 2.16.840.1.173795.3.57[id number] 2.16.840.1.533331.3.57[id number] 2.840.1.906725.3.579.[id number] 2.0.1.216224.3.579.[id number] 2.840.1.978784.3.57[id number] 2..1.077658.3.579.2.[id number] 2..1.367691.3.57[id number] 2..1.014018.3.57[id number] 2..1.876714.3.57[id number] 2..1.224467.3.57[id number] 2..1.946385.3.579.2.614629-35-4224Chdveos33330933 2..1.096187.3.579.2.480708-21-7593Ywuribp12132470 2..1.872066.3.579.2.231522-13-2993Hhshkqs46078669 2..1.456399.3.579.2.900135-17-5200Tbxjepd62306907 2..1.037231.3.57[id number] 2..1.069616.3.579.2.384268-84-9388Gatzmcj88768546 2..1.214257.3.579.2.8[id number] 2.16.840.1.290112.3.579.2.409767-61-7267Txtydjw78829392 2.16.840.1.003889.3.579.2.101646-20-1502Zecqjrk75927434 2.16.840.1.084252.3.579.2.101465-64-0172Etoigqa22476692 2.16.840.1.702272.3.579.2.017371-07-0464Ovtdrdl21680495 2.16.840.1.570222.3.579.2.000392-86-5233Pxrwqkj60481230 2.16.840.1.246996.3.579.2.429151-83-0534Ejzlvdb6863535 2..0.1.193418.3.579.2.010727-72-4641Zwmjyvc4187181 2.16.840.1.12303[id number] 2.0.1.557540.3.579.2.531 Social History DateTypeDetailFacilityStart: 07-16-2023 End: 11-99-7333Njtnsa uses seat beltAlways uses seat beltNOMS HealthcareStart: 03-10-2021 End: 71-50-4513Osqqymi smoking statusNever smoked tobacco (finding)[facility] Centertart: 09-74-8851Ircvoyc smoking statusNeverOhioHealth Arthur G.H. Bing, MD, Cancer Centertart: 07-16-2023 End: 15-35-6108Uhn Assigned At [facility] YaBeam Other TobaHighland District HospitalComment on above: denies.Tobacco smoking statusOhioHealth Arthur G.H. Bing, MD, Cancer Centertart: 04-11-2023 End: 27-54-4149Ffraxcj use and exposureSmokeless tobacco non-userGalion Community Hospitaltart: 04-11-2023 End: 90-51-7207Iubadki intakeCurrent drinker of alcohol (finding)[facility] Hospitaltart: 01-23-8236Gmalejk Commentmaybe a few drinks a monthOhiohealth Berger Hospital Start: 65-08-7789Lrx Assigned At BirthNot on [facility] HealthStart: 01-10-2024 End: 15-96-4732Bjctlab intakeLifetime non-drinker (finding)[facility]m HealthWithin the last year, have you been [...] got money to buy more.Never trueNOMS HealthcareStart: 57-60-3344Wddanuvym40EGTK HealthcareStart: 39-42-5463Xedmklc Commentcaffeine: 1-2 cups per day, coffee and popNONY HealthcareStart: 81-79-0406Zpgfeuc SDOH IPV Tjcn2Ypcww HealthStart: 53-60-3417Bzbqqxj SDOH Housing Places Rlplw8Kdhrj HealthStart: 04-12-2022 [facility] HealthStart: 11-18-2022 End: 33-79-8153Kqnnshnq to SARS-CoV-2 (event)Not sureSuashtabula county medical center HealthAre you now , , , , never or living with a partner? MarriedNOMS HealthcareDo you feel stress - tense, restless, nervous, or anxious, or unable to sleep at night because yourmind is troubled all the time - these days [OSQ]Only a littleNOCox BransonStart: 12-02-2018 End: 38-11-2285BrsNaekje (finding)[facility] Hospitaltart: 81-72-3651Dny Assigned At [facility] Akrontart: 08-19-2025 End: 63-09-6419Ygfuasxaf beverage intakeCurrent non-drinker of alcohol (finding) [facility] Medical Equipment Procedure CodeEquipment CodeEquipment Original TextEquipment IdentifierDates [id number]: 08-20-2025 End: each by In Vitro route Daily Use to check FSBS four times daily [id number]: 08-20-2025 End: 60-48-4038Wwz pen needles to give insulin.[id number]: 09-04-2025 Functional Status QwnzWklfrnzwqjIkbndtHkbtyexn95-92-8813Vuqaa score [AUDIT-C]0 09/10/2025 10:17 AM Danae Neumann [facility]09-04-2025Patient Health Questionnaire 2 item (PHQ-2) [Reported][facility] RoadJvnhdrluzd68-06-2364Nflfo score [AUDIT-C]1 12/29/2024 10:25 PM EST Mychart, GenericNOMS Ijcxhvatrd90-88-9362Htd often do you have a drink containing alcohol?Monthly or less 12/29/2024 10:25 PM EST Mychart, Generic Monthly or lessNOMS Iryfybablp51-06-3502Kmbndeumik status Patient does not drink 12/29/2024 10:25 PM EST Mychart, Generic Patient does not drinkNOMS Tgcttqfcwp89-89-0044Apz often do you have 6 or more drinks on 1 occasion?Never 12/29/2024 10:25 PM EST Mychart, Generic NeverNOCox [place]anson 67-85-0351Wqfetwo Health Questionnaire 2 item (PHQ-2) [Reported][facility] 70-68-2054Szjmzmzbcm StatusN/AFisher - [facility] CenterZozvyw08-59-8944Kddqskoqdc StatusN/AFisher [facility] CampusYqowal26-71-3104Pczvaxlgwt StatusN/[facility]01-02-2023Functional StatusN/AFisher - [facility] 07-14-2022N/[facility] Clinical Notes 04-18-2022 to 09-28-2025 Note Date & DivfTltmAdjrkxjo47-64-3832 Miscellaneous Notes* Telephone Encounter - Cha Harris RN - 09/28/2025 5:16 PM EST Called pt to discuss her insulin changes and received voicemail. Left her a message that Kyaleigh ryan reviewed her blood sugars and would like her to increase her glargine to 23 units in the evening.Asked her to please call back to verify she got this new insulin change for this week. documented in this encounterWright-Pat[facility] Center11-03-2025 Telephone encounter Note* Telephone Encounter - hCa Harris RN - 09/28/2025 5:16 PM EST Called pt to discuss her insulin changes and received voicemail. Left her a message that Kayleigh ryan reviewed her blood sugars and would like her to increase her glargine to 23 units in the evening.Asked her to please call back to verify she got this new insulin change for this week. [facility]10-27-2025 Miscellaneous Notes* Telephone Encounter - SILKE Baker - 09/21/2025 4:40 PM EDT Called regarding blood sugar logs from 09/14/25-09/20/25. aKyleigh Meza PA-C reviewed your blood sugars and [...] blood sugar logs weekly. documented in this encounterWright-Patterson Medical Center10-27-2025 Telephone encounter Note* Telephone Encounter [...] snack and Kayleigh wondered what you had. Juih says she most likely had some candy, suggested if she have a sweet that it might work better earlier in the day. Continue to send in blood sugar logs weekly. [facility]10-27-2025 History of Present illness Narrative* Kayleigh Meza PA-C - 09/21/2025 12:28 PM EDT Insulin dose increased due to elevated fastings. Kayleigh Meza PA-C 09/21/25 1229 documented in this encounterWright-Patterson Medical Center10-22-2025 Miscellaneous Notes* Telephone Encounter - [...] blood sugars next week. documented in this encounterWright-Patterson Medical Center10-22-2025 Telephone encounter Note* Telephone Encounter [...] send in new blood sugars next week. [facility]10-22-2025 History of Present illness Narrative* [...] John San infection GDM (gestational diabetes mellitus) ([facility]) Headache History of menstrual cramps ([facility]) Varicella zoster Visual impairment HISTORY PAST MEDICAL HISTORY SOCIAL HISTORY Past Medical History: Diagnosis Date Amenorrhea d/t oral contraceptive pills Endometriosis John San infection GDM (gestational diabetes mellitus) ([facility]) Headache History of menstrual cramps severe Hypertension ([facility]) x1 Varicella zoster unsure Visual impairment w/ [...] History: Procedure Laterality Date APPENDECTOMY 05/2016 at [facility] DILATION AND CURETTAGE [...] nursing note reviewed. Exam conducted with a straightener and aligner present. Vitals: Estimated body mass index is 29.78 kg/m as calculated from the following: Height as of 07/30/25: 5' 2 . Weight as of this encounter: 162 lb 12.8 oz. BP: 120/80 Patient's last menstrual period was 02/21/2025. Assessment/Plan ICD-10-CM 1. 29 weeks gestation of ([facility]) Z3A.29 POCT urinalysis dipstick manually resulted 2. Third trimester ([facility]) Z34.93 POCT urinalysis dipstick manually resulted 3. Hypertension affecting , antepartum ([facility]) O16.9 4. Gestational diabetes mellitus (GDM), antepartum, gestational diabetes method of control unspecified ([facility]) O24.419 Return OB: Patient presents today for [...] and continues to report glucose log to [facility]. Follow up Ultrasound in 4 weeks. Orders Placed This Encounter Procedures POCT urinalysis dipstick manually resulted Follow Up: Patient is to return to office in 2 week for routine OB appointment. Documented by Steph Keane NP on behalf of: Nathan Pop DO documented in this encounterSaint Luke's North Hospital–Barry RoadXamnunppdv65-84-4432 History of Present illness Narrative* Madhuri Monroy MD - 09/10/2025 11:00 AM EDT Video Visit via Real-time Synchronous Audiovisual Provider Location: [facility] [address] [place] [address], [address] [place] [address] Patient Location: Other [place] [facility] office Patient Location Faro Dealer: None Video Visit Consent Statement: I discussed [...] that there are some limitations compared to aomn-wz-ikqv evaluations. We elected to proceed. REASON FOR [...] and the other consultants, we search on [employer] and all the available care everywhere [facility] I did review all the imaging studies of the patient available on EMR, ordered by the primary care physician and the other acura sales consultant HABITS: Patient activity no restrictions, [...] checking blood glucose and remote evaluation through [facility] office until delivery. - Discontinue blood glucose evaluation and Lantus and offer formal glucose tolerance test around 6 weeks . - follow-up survey with the [facility] office visits scheduled. - continue serial growth [...] patient is in complete care of her senior bi architect. Patient does have ultrasound video visit scheduled [...] the provider today? none documented in this encounterWright-Patterson Medical Center10-10-2025 History of Present illness Narrative* [...] Yes Have you been seen here at [facility] in a previous ? No Recent ER visits or hospitalizations? 09/03/25 Patti to r/o preeclampsia. Patient states labs WNL Bring blood sugar log or meter with you today? (Please bring them with you for every visit at [facility]) Yes Flu vaccine (Sep-January)? N/A Any concerns [...] and the other consultants, we search on epic and all the available care everywhere epic I did review all the imaging studies of the patient available on EMR, ordered by the primary care physician and the other acura sales consultant HABITS: Patient activity no restrictions, [...] checking blood glucose and remote evaluation through [facility] office until delivery. 5. Discontinue blood glucose [...] patient is in complete care of her senior bi architect. Patient does have ultrasound video visit scheduled [...] with questions or concerns. documented in this encounterSt. Rita's HospitalNetzVacation Kresge Eye InstituteIxeypk41-01-1201 History of Present illness Narrative* Steph Keane, DEVYN - 09/03/2025 3:50 PM EDT Reason for [...] meal for a total of 4times daily. smzzagptfb-hkhsksl-vqwsceyp (Fiorinal) 50-325-40 MG capsule 1 capsule, Oral, [...] History: Procedure Laterality Date APPENDECTOMY 05/2016 at [facility] DILATION AND CURETTAGE [...] nursing note reviewed. Exam conducted with a straightener and aligner present. Vitals: Estimated body mass index is 29.41 kg/m as calculated from the following: Height as of 25: 5' 2 . Weight as of this encounter: 160 lb 12.8 oz. BP: 170/90 Patient's last menstrual period was 02/21/2025. ASSESSMENT & PLAN ICD-10-CM 1. 27 weeks gestation of ([facility]) Z3A.27 POCT urinalysis dipstick manually resulted 2. Second trimester ([facility]) Z34.92 Documented by Steph Keane NP on behalf of: Steph Keane NP documented in this encounterSaint Luke's North Hospital–Barry RoadWgavuktvxd59-59-0482 Miscellaneous Notes* Telephone Encounter - Cha Harris [...] [facility]. documented in this encounterWright-Pat[facility] Center10-07-2025 Telephone encounter Note* Telephone Encounter [...] Pt asked to be [facility]. [facility]10-02-2025 History of Present illness Narrative* [...] History of menstrual cramps severe Hypertension ([facility]) x1 Varicella zoster unsure Visual impairment [...] History: Procedure Laterality Date APPENDECTOMY 05/2016 at [facility] DILATION AND CURETTAGE [...] nursing note reviewed. Exam conducted with a straightener and aligner present. Vitals: Estimated body mass index is [...] resulted 2. Second trimester ([facility]) Z34.92 Return OB: Patient presents today for [...] was evaluated in the OB department on Gabriela this week and ultimately discharged. Will obtain pre eclampsia labs and have her evaluated today at [facility]. I discussed with OB today and they are aware that patient is coming to be ev aluated. Orders Placed This Encounter Procedures POCT urinalysis dipstick manually resulted Follow Up: Patient is to return to office in 2 week for routine OB appointment. Documented by Steph Keane NP on behalf of: Steph Keane NP documented in this encounterSaint Luke's North Hospital–Barry RoadWrltcwakdh15-19-5482 Group counseling note* Group Note - Kerline [...] Face to face time was 80 minutes. [place] [employer] Work Phone: [phone] 916-689109-29-2025 Miscellaneous Notes* Group Note - Kerline Augustin [...] time was 80 minutes. documented in this encounterSt. Rita's HospitalNetzVacation Kresge Eye InstituteWuvojp70-33-8651 History of Present illness Narrative* Steph Keane [...] History: Procedure Laterality Date APPENDECTOMY 05/2016 at [facility] DILATION AND CURETTAGE [...] nursing note reviewed. Exam conducted with a straightener and aligner present. Vitals: Estimated body mass index is [...] on Labetalol 100mg BID. Will refer to [facility] for evaluation. Patient deniesany Headache or blurred vision. Documented by Steph Keane NP on behalf of: Nathan Pop DO documented in this encounterSaint Luke's North Hospital–Barry RoadZncqztdwws89-48-7338 History of Present illness Narrative* Eliceo Beltran [...] Headache History of menstrual cramps Hypertension ([facility]) Varicella zoster Visual impairment Objective ?Quick [...] Orders: Lipid panel; Future documented in this encounterSaint Luke's North Hospital–Barry RoadWdheucwovt01-00-7632 History of Present illness Narrative* Christine Ravi [...] History of menstrual cramps severe Hypertension ([facility]) x1 Varicella zoster unsure Visual impairment [...] History: Procedure Laterality Date APPENDECTOMY 05/2016 at [facility] DILATION AND CURETTAGE [...] nursing note reviewed. Exam conducted with a straightener and aligner present. Vitals: Estimated body mass index is 26.48 kg/m as calculated from the following: Height as of 12/30/24: 5' 2 . Weight as of this encounter: 144 lb 12.8 oz. BP: 120/80 Patient's last menstrual period was 02/21/2025. ASSESSMENT & PLAN ICD-10-CM 1. 20 weeks gestation of ([facility]) Z3A.20 POCT urinalysis dipstick manually resulted 2. Second trimester ([facility]) Z34.92 POCT urinalysis dipstick manually resulted 3. [...] of: Nathan Pop DO documented in this encounterSaint Luke's North Hospital–Barry RoadVnpkfnbkjy51-66-8466 History of Present illness Narrative* Steph Keane [...] History: Procedure Laterality Date APPENDECTOMY 05/2016 at [facility] DILATION AND CURETTAGE [...] nursing note reviewed. Exam conducted with a straightener and aligner present. Vitals: Estimated body mass index is [...] of: Nathan Pop DO documented in this encounterSaint Luke's North Hospital–Barry RoadBordpsilqm77-89-0105 History of Present illness Narrative* Steph Keane [...] History: Procedure Laterality Date APPENDECTOMY 05/2016 at [facility] DILATION AND CURETTAGE [...] nursing note reviewed. Exam conducted with a straightener and aligner present. Vitals: Estimated body mass index is 25.24 kg/m as calculated from the following: Height as of 25: 5' 2 . Weight as of this encounter: 138 lb. BP: 122/80 Patient's last menstrual period was 02/21/2025. ASSESSMENT & PLAN ICD-10-CM 1. Second trimester ([facility]) Z34.92 POCT urinalysis dipstick manually resulted 2. [...] of: Nathan Pop DO documented in this encounterSaint Luke's North Hospital–Barry RoadLxwsntggpd11-33-3459 History of Present illness Narrative* Hina Go [...] History: Procedure Laterality Date APPENDECTOMY 05/2016 at [facility] DILATION AND CURETTAGE [...] or undercooked meat, and stay away from [facility]. Patient has also been advised to [...] by: Hina Go LPN documented in this encounterSaint Luke's North Hospital–Barry RoadMvobevxztf47-66-0861 History of Present illness Narrative* Candis Yanes LPN - 01/19/2025 2:50 PM EST Reason for Appointment: Patient ID: Juhi Gama is a 29 y.o. female who presents for Painful [place] Patient presents today for Consult appointment. MEDICATIONS Current Outpatient Medications Medication Instructions asjbycdusd-qtfmrjnyfhvgk-dzroeiuc 50-325-40 MG tablet 1 tablet, Oral, Every 6 hours PRN meloxicam (MOBIC) 15 mg, Oral, Daily metoprolol succinate XL (Toprol-XL) 25 MG 24 hr tablet Take 1 tablet by mouth daily ALLERGIES No Known Allergies PROBLEMS Active Ambulatory Problems Diagnosis Date Noted Acquired equinus deformity of foot 03/29/2023 Displacement of cervical intervertebral disc without myelopathy 03/29/2023 Dysmenorrhea 03/29/2023 Endometriosis 03/29/2023 Gastroparesis 03/29/2023 Hypertension ([facility]) 03/29/2023 Intractable migraine without aura and with status migrainosus ([facility]) 03/29/2023 Migraines ([facility]) 03/29/2023 Chronic pelvic pain in female 03/29/2023 Pain in female genitalia on intercourse 03/29/2023 Pain on swallowing 03/29/2023 Panic disorder ([facility]) 03/29/2023 Patellofemoral disorders, left knee 03/29/2023 Patellofemoral disorders, right knee 03/29/2023 Posterior calcaneal exostosis 03/29/2023 Scapular dyskinesis 03/29/2023 Scoliosis 03/29/2023 Seasonal allergic rhinitis due to pollen 03/29/2023 Tachycardia, paroxysmal ([facility]) 03/29/2023 Tension headache 03/29/2023 Vitamin B12 deficiency [...] Headache History of menstrual cramps severe Hypertension ([facility]) x1 Varicella zoster unsure Visual impairment w/ [...] History: Procedure Laterality Date APPENDECTOMY 05/2016 at [facility] DILATION AND CURETTAGE [...] nursing note reviewed. Exam conducted with a straightener and aligner present. Vitals: Estimated body mass index is [...] patient and patient given direct extension to Account Representative for any questions/concerns pertaining to fertility. Documented by Candis Yanes LPN on behalf of: Nathan Pop DO documented in this encounterSaint Luke's North Hospital–Barry RoadKazxntqakp36-82-6237 History of Present illness Narrative* Eliceo Beltran [...] History: Procedure Laterality Date APPENDECTOMY 05/2016 at [facility] DILATION AND CURETTAGE 12/2022 retained placenta DISTAL CLAVICLE EXCISION Right 07/2018 Shoulder - open - DAP LAPAROSCOPY DIAGNOSTIC / BIOPSY / ASPIRATION / LYSIS 02/2019 endometriosis, 2020 LAPAROSCOPY DIAGNOSTIC / BIOPSY / ASPIRATION / LYSIS 02/29/2024 SHOULDER SURGERY Right open distal clavicle excision-DAP VAGINAL DELIVERY 11/2022 Social History: [employer] Tobacco Use: Low Risk (12/30/2024) Patient History [...] min Stress: No Stress Concern Present (12/29/2024) [employer] - Occupational Stress Questionnaire Feeling of Stress : Only a little Social Connections: Unknown (12/29/2024) Social Connection and Isolation Panel [NHANES] Frequency of Communication with Friends and Family: More than three times a week Frequency of Social Gatherings with Friends and Family: Once a week Attends [employer] Services: Patient declined Active Member of Clubs [...] with the patient today. Current Outpatient Medications: ujjtgfvvli-ejnlvixjyyyce-vuccplof 50-325-40 MG tablet, Take 1 tablet by mouth every 6 (six) hours if needed for headaches, Disp: 20 tablet, Rfl: 0 desogestrel-ethinyl estradiol (Apri) 0.15-30 MG-MCG tablet, Take 1 tablet by mouth Daily, Disp: 21 tablet, Rfl: 12 metoprolol succinate XL (Toprol-XL) 25 MG 24 hr tablet, Take 1 tablet by mouth daily, Disp: 90 tablet, Rfl: 1 documented in this encounterSaint Luke's North Hospital–Barry RoadRewefwgpqe14-21-4620 History of Present illness Narrative* Virgen Steen, GODFREY - 08/18/2024 11:00 AM EDT Reason for Appointment: Patient ID: Juhi Cope is a 29 y.o. female who presents for Well Women Visit Patient presents today for Annual Exam. MEDICATIONS Current Outpatient Medications Medication Instructions wfxrvuxwfk-yuumkadcptqew-hwjxexce 50-325-40 MG tablet 1 tablet, Oral, Every [...] History: Procedure Laterality Date APPENDECTOMY 05/2016 at [facility] DILATION AND CURETTAGE [...] nursing note reviewed. Exam conducted with a straightener and aligner present. Vitals: Estimated body mass index is [...] of: Zenobia Gutierrez PA-C documented in this encounterSaint Luke's North Hospital–Barry RoadHgmdbrphkc90-47-8741 History of Present illness Narrative* Christine Ravi LPN - 07/22/2024 9:50 AM EDT Reason for Appointment: Patient ID: Juhi Cope is a 29 y.o. female who presents for Dysmenorrhea Patient presents today for Acute Visit. MEDICATIONS Current Outpatient Medications Medication Instructions ujmavifyny-ieryqnwyqxixs-dfmgxsxw 50-325-40 MG tablet 1 tablet, Oral, Every [...] migraine without aura and with status migrainosus ([facility] 03/29/2023 Migraines ([facility]) 03/29/2023 Chronic pelvic pain in female 03/29/2023 Pain in female genitalia on intercourse 03/29/2023 Pain on swallowing 03/29/2023 Panic disorder ([facility]) 03/29/2023 Patellofemoral disorders, left knee 03/29/2023 Patellofemoral disorders, right knee 03/29/2023 Posterior calcaneal exostosis 03/29/2023 Scapular dyskinesis 03/29/2023 Scoliosis 03/29/2023 Seasonal allergic rhinitis due to pollen 03/29/2023 Tachycardia, paroxysmal ([facility]) 03/29/2023 Tension headache 03/29/2023 Vitamin B12 deficiency [...] Headache History of menstrual cramps severe Hypertension ([facility]) x1 Varicella zoster unsure Visual impairment w/ [...] History: Procedure Laterality Date APPENDECTOMY 05/2016 at [facility] DILATION AND CURETTAGE [...] nursing note reviewed. Exam conducted with a straightener and aligner present. Vitals: Estimated body mass index is [...] of: Nathan Pop DO documented in this encounterSaint Luke[facility] Hospital–Barry [id number] Telephone encounter Note* Telephone Encounter - Candis Garces - 04/29/2024 8:23 AM EDT Received message from admin Anna Webb to cancel surgery and all appts as pt had services elsewhere [facility]06-04-[facility] Miscellaneous Notes* Telephone Encounter - Candis Garces - 04/29/2024 8:23 AM EDT Received message from admin Anna Webb to cancel surgery and all appts as pt had services elsewhere documented in this encounterOhiohealth Berger Hospital05-31-2024 Telephone encounter Note * Telephone Encounter - Anna De Leon - 04/25/2024 1:10 PM EDT Pt got in sooner for surgery with her local roll plugger. Please cancel surgery and all pre and post op appts. [facility]05-31-[facility]24 Miscellaneous Notes* Telephone Encounter - Anna De Leon - 04/25/2024 1:10 PM EDT Pt got in sooner for surgery with her local roll plugger. Please cancel surgery and all pre and post op appts. documented in this encounterOhiohealth Berger Hospital02-15-2024 History of Present illness Narrative* Nathan [...] Dysmenorrhea 03/29/2023 Endometriosis 03/29/2023 Gastroparesis 03/29/2023 Hypertension ([facility]) 03/29/2023 Intractable migraine without aura and with status migrainosus ([facility]) 03/29/2023 Migraines ([facility]) 03/29/2023 Chronic pelvic pain in female 03/29/2023 Pain in female genitalia on intercourse 03/29/2023 Pain on swallowing 03/29/2023 Panic disorder ([facility]) 03/29/2023 Patellofemoral disorders, left knee 03/29/2023 Patellofemoral disorders, right knee 03/29/2023 Posterior calcaneal exostosis 03/29/2023 Scapular dyskinesis 03/29/2023 Scoliosis 03/29/2023 Seasonal allergic rhinitis due to pollen 03/29/2023 Tachycardia, paroxysmal ([facility]) 03/29/2023 Tension headache 03/29/2023 Vitamin B12 deficiency [...] History: Procedure Laterality Date APPENDECTOMY 05/2016 at [facility] [place] DILATION AND CURETTAGE [...] nursing note reviewed. Exam conducted with a straightener and aligner present. Vitals: Estimated body mass index is [...] of: Nathan Pop DO documented in this encounterSaint Luke's North Hospital–Barry [id number] Miscellaneous Notes* Telephone Encounter - Pippa Simon [...] mg tablet Class: Normal Route: ORAL Order: [id number] E-Prescribing Status: Receipt confirmed by pharmacy (05/17/2023 [...] that may recur and often requires a usp treatment plan. Once endometriosis is identified, there [...] 05/20/2024 10:00 AM Kevin Pires Nurse [facility] 06/23/2024 10:30 AM Charlene Rodriguez DO [facility] Appointment scheduled: As listed above Action taken: Refill request routed to clinician Pippa Simon RN January 03, 2024 4:29 PM * Telephone Encounter - Alena Tracy - 01/02/2024 3:52 PM EST Patient: Juhi Cope : 1995 Provider: Charlene Rodriguez DO Caller Phone #: [phone] (home) [phone] (cell) Reason for call: b/c refill Message routed to nurse triage Date of next visit: MEGAN: 12/10/2023 documented in this encounterOhiohealth Berger Hospital01-15-2024 NoteHNO ID: [id number] Author: CHARLENE RODRIGUEZ DO Service: ? 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 Where to find more information [employer] [employer]: www.heart.org Contact a health care [...] provider. Document Revised: 07/27/2022 Document Reviewed: 07/27/2022 [employer] Patient Education 2022 [employer]. 09/12/2023 18:18:13 Hypertension, Adult, Wkao-wc-Upou Hypertension, Adult Hypertension is another name for [...] doctor. Keep all follow-up visits. Medicines Take hleu-ijc-hxrurxg and prescription medicines only as told by [...] provider. Document Revised: 08/31/2022 Document Reviewed: 08/31/2022 [employer] Patient Education 2022 [employer]. 09/12/2023 18:18:13 General Headache Without Cause, Uoyi-at-Wcvq General Headache Without Cause A headache is pain or discomfort you feel around the head or neck area. There are many causes and types of headaches. In some cases, the cause may not be found. Follow these instructions at home: Watch your condition for any changes. Let your doctor know about them. Take these steps to help with your condition: Managing pain Take fppa-ync-jewmxbl and prescription medicines only as told by [...] provider. Document Revised: 04/12/2022 Document Reviewed: 04/12/2022 [employer] Patient Education 2022 [employer]. Follow Up Care 09/12/2023 17:21:57 With:DENNY RODRÍGUEZ [facility] [place] [address] Business (1) When:09/15/2023 18:03:37 Comments:Follow-up with your primary care provider in 3 to 5 days. If symptoms worsen, do not improve, or new symptoms arise please report back to emergency department for further evaluation. [facility]10-18-2023 Evaluation + Plan noteExtracted from: [...] date 09/12/23 18:02:00 EDT, 09/12/23 18:02:00 EDT [facility]10-16-2023 Instructions* Patient Instructions* Jihan Downs APRN.ENGLISH DRAWER - 09/10/2023 9:52 AM EDT Plan: Trial baclofen suppositories - can switch to pill vaginally if suppositories are not affordable Consider Pelvic floor physical therapy - can find local provider [email or web address] Consider going back to see Dr Kuldip Downs APRN.ENGLISH DRAWER documented in this encounterOhiohealth Berger Hospital10-05-2023 NoteHNO ID: [id number] Author: Charlene Rodriguez DO Service: ? Author Type: Physician Type: Progress Notes Filed: 08/30/2023 11:15 AM Note Text: Tramadol rx sent to pharmacy.[facility]10-05-2023 History of Present illness Narrative* Charlene Rodriguez DO - 08/30/2023 11:13 AM EDT Tramadol rx sent to pharmacy. documented in this encounterOhiohealth Berger Hospital10-05-2023 Miscellaneous Notes* Telephone Encounter - Chelsie Dueñas RN - 08/30/2023 10:50 AM EDT Last office visit: 08/24/2023 Assessment and Plan No diagnosis found. Trial baclofen suppositories Will send list of PTs Consider going back to Kuldip SIGNATURE: Jihan Downs APRN.ENGLISH DRAWER Office visit with Dr. Rodriguez 07/16/2023 IMPRESSION: [...] Charlene Rodriguez DO documented in this encounterOhiohealth Berger Hospital09-29-2023 NoteHNO ID: [id number] Author: Jihan Downs APRN.ANA LAURA Service: ? Author Type: Nurse Practitioner Type: Progress Notes Filed: 09/10/2023 9:53 AM Note Text: [facility] Department of Benign Gynecology [facility] PATIENT NAME: Juhi Cope DATE: 08/24/2023 Patient Name and verified: Yes Patient Location: [place] This Virtual Visit was completed using My Chart Zoom platform. I have communicated my name and active licensure. The patient's identity and physical location were verified at the time of this visit. Either the patient or their legal auto service representative has been informed of the [...] appointment yet. GI - constipation is improved [place] - hasn't tried due to pain and [...] physical therapy - or can go locally [facility] Trial flexeril at bedtime Can consider Baclofen suppositories Continue Norethindrone - can take up to 3 months for it to stop periods, take at same time every day Relaxation techniques Jihan Downs APRN.CNP OB History T0 L1 SAB0 IAB0 Ectopic0 Multiple0 Live Births0 Social Service Director History LMP: 07/08/2023 (Exact Date), Having periods Age at Menarche: 14 Age at First : 27 Age at Menopause: Social Service Director History Comments: Sexual Activity: Never; No partner [...] toxic appearing HEENT nor (more content not included)...[facility] History of Present illness Narrative* Jihan Downs APRN.ENGLISH DRAWER - 08/24/2023 9:24 AM EDT Images from the original note were not included. [facility] Department of Benign Gynecology [facility] PATIENT NAME: Juhi Cope DATE: 08/24/2023 Patient Name and verified: Yes Patient Location: [place] This Virtual Visit was completed using My Chart Zoom platform. I have communicated my name and active licensure. The patient's identity and physical location wereverified at the time of this visit. Either the patient or their legal auto service representative has been informed of the [...] appointment yet. GI - constipation is improved [place] - hasn't tried due to pain and [...] physical therapy - or can go locally [facility] Trial flexeril at bedtime Can consider Baclofen suppositories Continue Norethindrone - can take up to 3 months for it to stop periods, take at same time every day Relaxation techniques Jihan Downs APRN.ENGLISH DRAWER OB History T0 L1 SAB0 IAB0 Ectopic0 Multiple0 Live Births0 Social Service Director History LMP: 07/08/2023 (Exact Date), Having periods Age at Menarche: 14 Age at First : 27 Age at Menopause: Social Service Director History Comments: Sexual Activity: Never; No partner [...] 3 - Low documented in this encounterOhiohealth Berger Hospital09-22-2023 Miscellaneous Notes* Telephone Encounter - Marilee [...] Provider: Charlene Rodriguez DO Caller Phone #: [phone] (home) [phone] (cell) Reason for call: pt calling regarding message., still in pain. Please call [phone] Message routed to nurse triage Date of next visit: documented in this encounterOhiohealth Berger Hospital09-07-2023 Miscellaneous Notes* Telephone Encounter - Candis Suárez RN - 08/02/2023 11:29 AM EDT PA for orilissa completed via Cover MyMeds. Juhi Cope (Morales: [id number]) - [id number] Orilissa 150MG tablets Status: Sent To Plan [...] Please advise. Thanks. documented in this encounterOhiohealth Berger Hospital08-21-2023 NoteHNO ID: [id number] Author: Charlene Rodriguez, DO Service: ? 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 Author Type: Infusion Therapy Nurse Type: Progress Notes Filed: 06/12/2023 4:32 PM [...] BY: RT Claudia(R) June 12, 2023 4:32 [facility]07-18-2023 NoteHNO ID: [id number] Author: Boo Singh RN Service: Nursing Author [...] Cope DATE: June 12, 2023 TIME: 1:43 [facility]06-22-2023 NoteHNO ID: [id number] Author: Charlene Rodriguez, Service: ? 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 Charlene Rodriguez DO Tt: 20 minutesPe[facility] Hospital06-22-2023 History of Present illness Narrative* Charlene Rodriguez DO - 05/17/2023 1:05 PM EDT Images from the original note were not included. [facility] SECTION FOR MINIMALLY INVASIVE GYNECOLOGIC SURGERY OUTPATIENT [...] to appointment last week 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 LMP: 04/22/2023 (Exact Date), Having periods Age at Menarche: 14 Age at First : 27 Age at Menopause: Social Service Director History Comments: Sexual Activity: Never; No partner [...] Tt: 20 minutes documented in this encounterOhiohealth Berger Hospital06-16-2023 Miscellaneous Notes* Telephone Encounter - Candis Suárez RN - 05/11/2023 4:19 PM EDT Reports vaginal bleeding, using panty liners, changing a few times a day, not severe. Biggest complaint is cramping. Has had 3 periods of bleeding recently - 04/22/2023 LMP, last a few days, 05/04-05/10 bleeding again 05/11/2023 started again today. Takes aygestin 5mg daily. 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 Encourage to continuous pickling line pickler the flexeril as this will help with the cramping. Reviewed red flag bleeding symptoms that require trip to ER (soaking greater than one overnight padper hour, chest pain, shortness of breath, fatigue, palpitations).. Advised keep appt. Gives verbal understanding. Appointments for Next 60 Days Date Time Provider Location Dept Phone 05/17/2023 1:00 PM CHARLENE RODRIGUEZ [facility] [phone] Candis Suárez, RN * Telephone Encounter - Tawanarossana Nair [facility] - 05/11/2023 1:19 PM EDT Reason for call: other - Vaginal bleeding Provider name: Dr Rodriguez Additional comments: patient having more vaginal bleeding and concerned she is getting worse. Recommendation: routed to nurse triage pool documented in this encounterOhiohealth [facility] Hospital06-06-2023 Instructions* Patient Instructions* Jihan Downs APRN.CNP - 05/01/2023 11:47 AM EDT Plan Pelvic floor physical therapy - or can go locally [employer] Trial flexeril at bedtime Can consider Baclofen suppositories - let me know if you want to trial after you go to PT Continue Norethindrone - can take up to 3 months for it to stop periods, take at same time every day Relaxation techniques Jihan Downs APRN.ENGLISH DRAWER Relaxation techniques for pain flares: Heating pads [...] pain society ([email or web address].org) documented in this encounterOhiohealth [facility] Hospital06-06-2023 History of Present illness Narrative* Jihan Downs APRN.ANA LAURA - 05/01/2023 10:30 AM EDT Juhi Cope is a 28 year old female who presents for problem visit for pain HPI: Pain is week before period and week of period. Worse on her period for every day she's bleeding Urinary - No symptoms GI - Always constipated. No meds [place] - painful always Pain is on left [...] L0 SAB0 IAB0 Ectopic0 Multiple0 Live Births0 Social Service Director History LMP: 03/26/2023 (Approximate), Having periods Age at Menarche: Age at First : Age at Menopause: Social Service Director History Comments: Sexual Activity: Never; No partner [...] physical therapy - or can go locally pelvicLooking for [facility] Trial flexeril at bedtime Can consider Baclofen [...] 4 - Moderate documented in this encounterOhiohealth [facility] Hospital06-06-2023 NoteHNO ID: [id number] Author: Jihan Downs APRN.CNP Service: ? Author Type: Nurse Practitioner Type: Progress Notes Filed: 05/09/2023 11:46 AM Note Text: Juhi Cope is a 28 year old female who presents for problem visit for pain HPI: Pain is week before period and week of period. Worse on her period for every day she's bleeding Urinary - No symptoms GI - Always constipated. No meds [place] - painful always Pain is on left [...] L0 SAB0 IAB0 Ectopic0 Multiple0 Live Births0 Social Service Director History LMP: 03/26/2023 (Approximate), Having periods Age at Menarche: Age at First : Age at Menopause: Social Service Director History Comments: Sexual Activity: Never; No partner [...] physical therapy - or can go locally [email or web address] Trial flexeril at bedtime Can consider Baclofen [...] management Medical Decision Making Level: 4 - [facility]erate[facility]05-[facility]-2023 Miscellaneous Notes* Telephone Encounter - Marilee Valdez APRN.CNP - 04/25/2023 3:48 PM EDT She has 3 month follow up scheduled with Dr. Rodriugez in June. Recommend VV with Jihan Downs [...] Lucila Foss RN documented in this encounterOhiohealth [facility]03-08-2023 Hospital Discharge instructions Patient Education 01/31/2023 [...] told by your health care provider. Take hxln-rra-skmjjtt and prescription medicines only as told by [...] 01/03/2007 Document Revised: 10/25/2018 Document Reviewed: 01/25/2018 [employer] Patient Education 2020 [employer] Follow Up Care 01/31/2023 13:43:01 With:Denny Meza Address:Unknown When:02/03/2023 18:59:31 Comments:Follow-up for evaluation of hypertension in context of known preeclampsia in the period With:DENNY RODRÍGUEZ [facility] [place] [address]- Business (1) When:Within 3 Day(s) [facility]03-08-2023 Evaluation + Plan noteExtracted from: Title:ED NoteAuthor:Mayur Mabry PA-C CDate:01/31/23 Flank pain (R10.9: Unspecifi ed abdominal pain) Headache (R51.9: Headache, unspecified) Orders: CTA Chest Hepatic Function Panel [facility]02-04-2023 Hospital Discharge instructions Patient Education 12/30/2022 13:59:51 FRENCH TUTOR - Post D&C, Hysteroscopy, LEEP or Essure/Laparoscopy [...] Instructions - FT (Custom) (Custom) 12/30/2022 13:55:16 FRENCH TUTOR - Post D&C, Hysteroscopy, LEEP or Essure/Laparoscopy [...] Address: [address], [place] [address]- Business (1) When: Unknown Comments:follow up in 1-2 weeks With:DENNY RODRÍGUEZ Address: [address] [place] [address] Business (1) When:01/02/2023 09:21:18 [facility]02-04-2023 Evaluation + Plan noteExtracted from: [...] from:Title:ANES Pre-operative NoteAuthor:Kenneth Agustin MDDate: 12/30/22 Plan [place] [employer]esthesiologists (ASA) physical status classification: [...] With Cult Reflex US Pelvis Non-OB Complete [facility]01-10-2023 History of Present illness Narrative* Tory Pimentel - 12/05/2022 1:35 PM EST Vital signs BP 127/87 Weight 149.2lb Pulse 106 Temp 96.7 * Paolo Lacy - 12/05/2022 1:35 PM EST Images from [...] Ross MD - 12/05/2022 3:19 PM EST [facility]: [facility] by the resident. I reviewed and agree with the care provided by the resident during or immediately following the visit including the patient's medical history, the resident's finding in the physical exam, patient's diagnosis and treatment plan. documented in this [facility]01-07-2023 NoteDepartment of Obstetrics and Gynecology Delivery Discharge Summary Admission on 11/28/2022 12:24 AM Hospital course: Juhi Cope at 35w1d admitted as a transfer from [facility] for [facility]. She was started on Magnesium [...] Information for the patient's : Francie Cope [[id number]] female 2425 g (5 lb 5.5 oz) Apgars: Information for the patient's : Francie Cope [[id number]] : Infant: Girl Blood Type/Rh: O Antibody [...] Your Medications These medications were sent to [facility] [address] [place], [place] [id number] Hours: Sunday to Sunday 10 am to 6 pm docusate sodium 100 MG capsule ibuprofen 600 MG tablet NIFEdipine XL 30 MG 24 hr tablet Activity: Activity as tolerated Diet: Regular diet Follow-up Appointments: - visit - Blood pressure check If a patient meets criteria for hypertension, make sure the following are done prior to discharge: [] Order a blood pressure kit through [facility] (or the patient's own pharmacy on the weekend) [] Order the blood pressure log through [facility] [x] Place an office visit or telephone [...] notify her physician if any of these occur.[facility]01-07-2023 History of Present illness Narrative* Anna [...] VAGINAL DELIVERY POST DAY # 2 Juhi Anatoliy, 27 y.o. This patient was seen [...] Vitals: 12/01/22 0757 12/01/22 1048 12/01/22 1528 01/06/23 2327 BP: 134/84 132/85 130/80 139/88 BP [...] findings and plans of the resident physician, shayy as documented in her note. Doing well PPD#1, chauhan catheter still in place for urinary retention - plan to remove today and re-attempt spontaneous void. Blood pressures stable on Procardia 30XL, continue to monitor. Consider discharge tomorrow if blood pressures remain controlled and urinary retention resolved. I spent 15 minutes in the visit, with more than 50% of the total ornz-xs-jiqd time of the visit in counseling/coordination of [...] be monitored and followed by the diet guitar repair technician. CRISS Oshea * Alejandra Arcos RN [...] and reassuring. CCM. Cx:/-3 FHT: Cat 1 [place]:q3-4 min A/P: 1. IOL-PreEwSF. FHT 130 baseline, with moderate variability, Accelerations present Yes, and rare late deceleration . Cervical exam unchanged. Cytotec x4 placed at this time. Patient intermittently feeling contractions. BP mild range. Cx: 1--3 FHP: defer FHT: Cat I [place]: a3-4min A/P: 1. IOL-PreEwSF: FHT Category I, [...] Cx: unchanged FHP: defer FHT: Cat I [place]: q4min A/P: 1. IOL-PreEwSF: FHT Category I, [...] 11/29/2022 6:17 AM Cx:1-2/60/-3 FHT: Cat I [place]:q4-5mins A/P: 1. IOL-PreEwSF: Cat I FHT with [...] per protocol. CCM. Cx:defer FHT: Cat I [place]:q4-6mins A/P: 1. IOL-PreEwSF: Cat I FHT with baseline 120, moderate variability, spontaneous accelerations, and no decelerations. BP normotensive to mild range since last note time. Pitocin @ 2 cc/hr, continue to titrate per protocol. Magnesium sulfate running for seizure prophylaxis, UOP 400 ml over past 4hours. CCM. Cx:defer FHT: Cat I [place]:q4-5mins A/P: 1. IOL-PreEwSF: Cat I FHT with baseline 135, moderate variability, spontaneous accelerations, and no decelerations. BP normotensive to mild range since last note time. Pitocin @ 6 cc/hr, continue to titrate per protocol. Magnesium sulfate running for seizure prophylaxis, UOP 600 ml over past 4hours. Will plan for AROM soon. CCM. Cx:defer FHT: Cat I [place]:irritability A/P: 1. IOL-PreEwSF: Pit @ 8 mu/min. Patient resting comfortably and only irritability tracing on toco. BP most recently mild range. On magnesium sulfate for seizure prophylaxis. UOP adequate. Continue magnesium and continue to titrate pitocin per protocol. Plan for AROM once patient rudi more regularly. Electronically signed by Cortney Velasquez DO 11/29/2022 4:21 PM Cx:70/-3 FHT: Cat 1 [place]:Not tracing A/P: 1. IOL-PreEwSF. FHT 135 baseline, with moderate variability, Accelerations present Yes, and nodecelerations seen . AROM at this time for moderate amount blood tinged fluid. Pitocin at 8cc/hr. Maternal BP mild range. On Magnesium for Seizure prophylaxis. Patient with adequate urinary output. [facility]. Cx: defer FHP: defer FHT: Cat II [place]: not tracing well A/P: 1. IOL-PreEwSF: FHT [...] per RN FHP: defer FHT: Cat II [place]: q4min A/P: 1. IOL-PreEwSF: FHT Category II [...] delivery note for details documented in this [facility]01-07-2023 Hospital course Narrative* César Tran DO - 12/02/2022 12:32 PM EST Images from the original note were not included. Department of Obstetrics and Gynecology Delivery Discharge Summary Admission on 11/28/2022 12:24 AM Hospital course: Juhi Cope at 35w1d admitted as a transfer from [facility] for [facility]. She was startedon Magnesium there [...] Information for the patient's : Megan CopeMark Anthonyshalonda [[id number]] female 2425 g (5 lb 5.5 oz) Apgars: Information for the patient's : rFancie Cope [[id number]] : : Girl Blood Type/Rh: O Antibody [...] Your Medications These medications were sent to [facility] [address] [place] [address] Hours: Sunday to Sunday 10 am to 6 pm docusate sodium 100 MG capsule ibuprofen 600 MG tablet NIFEdipine XL 30 MG 24 hr tablet Activity: Activity as tolerated Diet: Regular diet Follow-up Appointments: - visit - Blood pressure check If a patient meets criteria for hypertension, make sure the following are done prior to discharge: [] Order a blood pressure kit through [facility] (or the patient's own pharmacy on the weekend) [] Order the blood pressure log through [facility] [x] Place an office visit or telephone [...] any of these occur. documented in this [facility]01-06-2023 Note* Care Coordination - Christine Michelle RN [...] home. Denies any concerns at this time. [id number] Note* Care Coordination - Christine Michelle RN [...] home. Denies any concerns at this time. [facility] [id number] Miscellaneous Notes* Care Coordination - Christine Michelle [...] for this pt. Due to: infant in [facility] Hospital breast pump, supplies kit, [...] patient to check with in [facility] for smaller flange sizes * L&D Delivery Note - Irina Kramer DO - 11/30/2022 4:04 AM EST Images from the original note were not included. Vaginal Delivery Note Department of Obstetrics and Gynecology Patient: Juhi Cope : 1995 Date of delivery: 11/30/2022 Pre-operative Diagnosis: Juhi ElizondoP0 at 35w1d 1. <37 weeks 2. PreEwSF Post-operative Diagnosis: Live Born female Delivering Bio Medical Technician & Hospital Medicine Director(s): Dr. Bowden; Dr. Kramer Infant Information: Information for the patient's : Francie Cope [[id number]] Information for the patient's : Francie Cope [[id number]] Description: normal Meconium Noted: No Anesthesia: epidural [...] change. Clotilde Mg RN documented in this [facility]01-06-2023 Obstetrics Note* Note - Ligia Bridges RN - 12/01/2022 9:00 AM EST 22.5mm flanges given to patient. Encouraged her to call for observation of pump session and smallerflanges. Martha in NICU to assist with personal pump. [facility] [id number] Hospital Discharge instructions* Discharge Instructions* Carol Bowden [...] as 8 weeks after delivery. Bleeding may continuous pickling line pickler and then decrease again around 7-10 days [...] avoid constipation you may take a mild oihe-gxa-prjvwlj stool softener (such as colace) as recommended [...] positive or a Person Under Investigation (PUI) Ezakbl-fo-tpflq transmission of COVID-19 during is unlikely, but after a baby is susceptible to gnpxrq-jr-nslvcc spread. After your baby is born, your [...] clean your hands with an alcohol-based hand school library media program director that contains at least 60% alcohol. Clean your hands often Wash your hands often with soap and water for at least 20 seconds, especially after blowing your nose, coughing, or sneezing; going to the bathroom; and before eating or preparing food. If soap and water are not readily available, use an alcohol-based hand school library media program director with at least 60% alcohol, covering all [...] healthcare provider to call the local or [facility] health department. Persons who are placed [...] isolation precautions should be made on a rtgs-mj-nxst basis, in consultation with healthcare providers and [facility] health departments. Information on COVID-19 for ALL [...] respiratory tract signs and symptoms. Ways to [place] with Anxiety & Stress It is normal [...] an illness that was first found in [facility], in October 2019. It has [...] seen in people before. This virus spreads jlimhl-va-sncyiu through droplets from coughing and sneezing. It [...] water aren't available, use an alcohol-based hand school library media program director. Call 911 anytime you think you may [...] of: February 25, 2020 Content Version: 12.4 [employer]. Care instructions adapted under license by your healthcare professional. If you have questions about a medical condition or this instruction, always ask your healthcare professional. [employer] disclaims any warranty or liability for your use of this information. General Recommendations for Routine Cleaning and Disinfection of Households Community members can practice routine cleaning of frequently touched surfaces (for example: tables, doorknobs, light switches, handles, desks, toilets, faucets, sinks) with household rn correctional and EPA-registered disinfectants that are appropriate for [...] appropriate. These supplies include tissues, paper towels, rn correctional and EPA-registered disinfectants (see list link at [...] be used for other purposes. Consult the silviculture professor's instructions for cleaning and disinfection products used. [...] used if appropriate for the surface. Follow silviculture professor's instructions for application and proper ventilation. Check [...] with EPA-approved emerging viral pathogens [facility] iconexternal icon are expected to be effective against COVID-19 based on data for harder to kill viruses. Follow the silviculture professor's instructions for all cleaning and disinfection products (e.g., concentration, application method and contact time, etc.). Soft (porous) surfaces such as carpeted floor, rugs, and drapes Remove visible contamination if present and clean with appropriate rn correctional indicated for use on these surfaces. After cleaning: Launder items as appropriate in accordance with the silviculture professor's instructions. If possible, launder items using the [...] items as appropriate in accordance with the silviculture professor's instructions. If possible, launder items using the warmest appropriate water setting for the items and dry items completely. Dirty laundry from an ill person can be washed with other people's items. Clean and disinfect clothes hampers according to guidance above for surfaces. If possible, considerplacing a textile bag sewer that is either disposable (can be thrown away) or can be laundered. CDC has a list of EPA approved cleaning products on their website - https://www.cdc.gov/coronavirus/ 2019-ncov/community/home/cleaning-disinfection.html https://www.[employer]apaya[employer]/Usqdu-Ebjlcamqkof-Zapiaijl-Products-List.pdf Grocery Stores with delivery and continuous pickling line pickler services: [employer]: Free continuous pickling line pickler at locations Delivery is $12.95 a month Website - [employer] [place]: Needle Straightener $2.95 (1st order is free) Delivery is $14.95 Website - [employer] [place]: support coordinator is free Delivery is $5.95 Website - [employer]: support coordinator is $4.95 Delivery is $9.95 Website [employer]: support coordinator is $4.95 Delivery is $9.95 Website - [employer]cell[employer]: Can be ordered for delivery and continuous pickling line pickler with [employer] Website - [employer]: Free deliver for first 3 orders of $35 or more Website - [employer] Will deliver from [employer]S, Me[employer], [employer], and [employer]. Annual membership is $99 Monthly membership is $14 * Attachments The following attachments cannot be sent through Care Everywhere. * Preeclampsia Discharge Instructions ([place]ican) documented in this [facility]01-05-2023 Obstetrics Note* Note - Sheila Harrell RN - 11/30/2022 10:37 AM EST Swabs given to patient and educated how to use and to bring to infant CRISTIAN [facility] [id number] Obstetrics Note* Note - Sheila Harrell RN - 11/30/2022 10:30 AM EST Breast pump use indicated for this pt. Due to: in [facility] Hospital breast pump, supplies kit, [...] to check with LC in [facility] for smaller flange sizes [facility] [id number] NotePatient: Juhi Cope Procedure Summary Date: 11/29/22 [...] discharged once all PACU criteria has been met.[facility]01-05-2023 NotePatient: Juhi Cope Procedure Summary Date: [...] Allowed opportunity for questions and acknowledgement of understanding.[facility]01-05-2023 Labor and delivery summary note* L&D Delivery Note - Irina Kramer DO - 11/30/2022 4:04 AM EST Images from the original note were not included. Vaginal Delivery Note Department of Obstetrics and Gynecology Patient: Juhi Cope : 1995 Date of delivery: 11/30/2022 Pre-operative Diagnosis: Juhi Mojica0 at 35w1d 1. <37 weeks 2. PreEwSF Post-operative Diagnosis: Live Born female Delivering Bio Medical Technician & Hospital Medicine Director(s): Dr. Bowden; Dr. Kramer Infant Information: Information for the patient's : Francie Cope [[id number]] Information for the patient's : Francie Cope [[id number]] Description: normal Meconium Noted: No Anesthesia: epidural [...] surgery as described in the resident note. [facility] [id number] NoteEpidural Block Time Out: 11/29/2022 6:17 PM Patient location during procedure: OB Start time: 11/29/2022 6:18 PM End time: 11/29/2022 6:45 PM Reason for block: labor analgesia Staffing Performed: CATTLE BROKER Resident/CATTLE BROKER: Jimmie Kaur APRN - JASMYN Preanesthetic Checklist [...] patient tolerated procedure well with no immediate complicationsAsp[facility]01-04-2023 Plan of care note* Care Plan - Clotilde Mg RN - 11/29/2022 7:45 AM EST The patient will continue to make cervical change. Clotilde Mg RN [facility] [id number] NotePatient: Juhi Cope Procedure Information Date: 11/28/22 [...] products. patient is not NPO Additional Equipment [facility]01-03-2023 NoteLabor Progress Note Date: 11/28/2022 [...] and reassuring. CCM. Cx:1/70/-3 FHT: Cat 1 [place]:q3-4 min A/P: 1. IOL-PreEwSF. FHT 130 baseline, with moderate variability, Accelerations present Yes, and rare late deceleration . Cervical exam unchanged. Cytotec x4 placed at this time. Patient intermittently feeling contractions. BP mild range. Cx: 1-2/70/-3 FHP: defer FHT: Cat I [place]: a3-4min A/P: 1. IOL-PreEwSF: FHT Category I, [...] Cx: unchanged FHP: defer FHT: Cat I [place]: q4min A/P: 1. IOL-PreEwSF: FHT Category I, [...] 11/29/2022 6:17 AM Cx:1-2/60/-3 FHT: Cat I [place]:q4-5mins A/P: 1. IOL-PreEwSF: Cat I FHT with [...] per protocol. CCM. Cx:defer FHT: Cat I [place]:q4-6mins A/P: 1. IOL-PreEwSF: Cat I FHT with baseline 120, moderate variability, spontaneous accelerations, and no decelerations. BP normotensive to mild range since last note time. Pitocin @ 2 cc/hr, continue to titrate per protocol. Magnesium sulfate running for seizure prophylaxis, UOP 400 ml over past 4 hours. CCM. Cx:defer FHT: Cat I [place]:q4-5mins A/P: 1. IOL-PreEwSF: Cat I FHT with baseline 135, moderate variability, spontaneous accelerations, and no decelerations. BP normotensive to mild range since last note time. Pitocin @ 6 cc/hr, continue to titrate per protocol. Magnesium sulfate running for seizure prophylaxis, UOP 600 ml over past 4 hours. Will plan for AROM soon. CCM. Cx:defer FHT: Cat I [place]:irritability A/P: 1. IOL-PreEwSF: Pit @ 8 mu/min. Patient resting comfortably and only irritability tracing on toco. BP most recently mild range. On magnesium sulfate for seizure prophylaxis. UOP adequate. Continue magnesium and continue to titrate pitocin per protocol. Plan for AROM once patient rudi more regularly. Electronically signed by Cortney Velasquez DO 11/29/2022 4:21 PM Cx:/-3 FHT: Cat 1 [place]:Not tracing A/P: 1. IOL-PreEwSF. FHT 135 baseline, with moderate variability, Accelerations present Yes, and no decelerations seen . AROM at this time for moderate amount blood tinged fluid. Pitocin at 8cc/hr. Maternal BP mild range. On Magnesium for Seizure prophylaxis. Patient with adequate urinary output. [facility]. Cx: defer FHP: defer FHT: Cat II [place]: not tracing well A/P: 1. IOL-PreEwSF: FHT Category II for brief period of lates vs early deceleration (more content not included)...[facility]01-03-2023 NoteObstetrical History and Physical CHIEF COMPLAINT: [...] 34w6d Is this patient being delivered between 77o4z-92d4l weeks with an acceptable medical indication (obstetric, maternal, and/or )? NA: Not Applicable: This patient is being delivered outside of the PC-01 range (59u2x-51n9u) for reasons indicated in the medical record. [...] VTE Prophylaxis: Not Indicated (more content not included)...[facility]01-03-2023 History and physical note* Cassie Constantino [...] 34w6d Is this patient being delivered between 25m8q-82s0x weeks with an acceptable medical indication (obstetric, maternal, and/or )? NA: Not Applicable: This patient is being delivered outside of the PC-01 range (86t4q-46r9t) for reasons indicated in the medical record. [...] plan. Cassie Constantino MD 11/28/2022, 12:48 AM [facility] HospitalPergea07-34-1928 History and physical note* Cassie Constantino MD [...] 34w6d Is this patient being delivered between 75w7w-87s7u weeks with an acceptable medical indication (obstetric, maternal, and/or )? NA: Not Applicable: This patient is being delivered outside of the PC-01 range (25y5e-50c1h) for reasons indicated in the medical record. [...] MD 11/28/2022, 12:48 AM documented in this [facility]01-02-2023 Evaluation + Plan note Extracted from:Title:OB High Risk Antepartum Visit *Author:WILLIAN BLACKWELL, [place] Date:11/27/22 Impression and Plan Diagnosis 34 weeks 5 days. Preeclampsia. contractions. Maternal tachycardia.. Course: Worsening, New onset headache may be a signal of worsening symptoms of preeclampsia.. Orders I discussed this case with the maternal- medicine department at [facility] in [facility], Dr. Thea Nieves, she accepted to transfer due to preeclampsia. Plan: Magnesium sulfate per protocol, betamethasone, transfer arrangements are in progress..[facility]08-19-2022 Evaluation + Plan note Extracted from:Title:ED NoteAuthor:Dahlia Charlottesveta ADate:07/14/22 Abdominal pain in (O26.899: Other specified [...] Colace and Proctofoam and follow-up with her [employer] physician in the outpatient setting. She is provided with a note for work. Additional diagnosis: Constipation, UTI and [facility]08-19-2022 Hospital Discharge instructions Follow Up Care 07/14/2022 06:07:36 With:Denny Meza Address:Unknown When:07/17/2022 07:24:48 With:DENNY RODRÍGUEZ Address: [address] [place] [address] Business (1) When:Within 3 Day(s) [facility]08-19-2022 Hospital Discharge instructions Follow Up Care 07/14/2022 04:40:16 With:Denny Meza Address: [address] , [place] [phone]- Business (1) When:07/17/2022 Comments:Appointment has already been scheduledCall Dr if fever>100.5 F, heavy bleedingCall for any problems.Call for severe abdominal painCall physician for heavy vaginal bleedingCall physician if symptoms worsenPlease call if you need to rescheduleReturn for contractions closer, longer, harderReturn ifruptured membranes or vaginal bleeding [facility]05-31-2022 Evaluation + Plan note Diagnostic Tests Pending * Tzhep-0-Havgvznhmcr 04/25/22 * NIGEL w/Reflex if POS 04/25/22 * Ceruloplasmin 04/25/22 * HCV Antibody RFX to Quant PCR 04/25/22 * HBV Core Ab 04/25/22 * Hepatitis B Surface Antibody 04/25/22 * Hepatitis B Surface Antigen 04/25/22 * Smooth Muscle Antibody Screen 04/25/22 [facility]05-24-2022 Evaluation note* Encounter Date Diagnosis Assessment Notes Treatment Notes Treatment Clinical Notes March, Elevated liver function tests (I CD-10 - R79.89) LABS INDICATED ABOVE FIBROSCAN Pick1 Other Evaluation note* Diagnosis Pelvic pain in female- Primary Unspecified symptom associated with female genital organs [facility] Diagnosis Chronic pelvic pain in female- Primary Unspecified symptom associated with female genital organs Constipation, unspecified constipation type High-tone pelvic floor dysfunction Other specified disorders of female genital organs Diastasis of rectus abdominis Dysmenorrhea Other specified dyspareunia documented [facility]* Diagnosis Endometriosis- Primary Endometriosis, site unspecified Pelvic and perineal pain Unspecified symptom associated with female genital organs [facility]* Diagnosis Pelvic pain in female- Primary Unspecified symptom associated with female genital organs [facility]* Diagnosis Pelvic pain in female- Primary Unspecified symptom associated with female genital organs [facility]* Diagnosis High-tone pelvic floor dysfunction- Primary Other specified disorders of female genital organs Chronic pelvic pain in female Unspecified symptom associated with female genital organs [facility] Diagnosis Pelvic and perineal pain Unspecified symptom associated with female genital organs [facility]* Diagnosis Menorrhagia with regular cycle Pelvic pain in female Unspecified symptom associated with female genital organs Uses control documented in this encounter [facility]* Diagnosis Preeclampsia, severe, third trimester- Primary Preeclampsia, severe, third trimester documented [facility]* Diagnosis Pre-eclampsia, severe, delivered- Primary documented in [facility] encounter [facility]* Diagnosis Dysmenorrhea, unspecified documented in this encounter [facility] HealthcareEvaluation note* Diagnosis Well woman exam with routine gynecological exam Routine gynecological examination documented in this encounter [facility] Healthcare[facility] note* Diagnosis Hypertension, unspecified type (CMS/HCC)- Primary Paroxysmal tachycardia, unspecified (CMS/HCC) Paroxysmal tachycardia, unspecified Chronic right shoulder pain Pain in joint, shoulder region Scapular dyskinesis Lack of coordination documented in this encounter [facility] HealthcareEvaluation note* Diagnosis Pain in female genitalia on intercourse Dyspareunia Endometriosis Endometriosis, site unspecified documented in this encounter [facility] HealthcareEvaluation noteNo assessment information availableUniversity Hospitals [facility] Work Phone: Evaluation note* Diagnosis Missed menses , unspecified gestational age Encounter for supervision of normal first in first trimester documented in this encounter [facility] HealthcareEvaluation note* Diagnosis Nonintractable episodic headache, unspecified headache type- Primary Second trimester ([facility]) state, incidental 13 weeks gestation of ([facility] documented in this encounter [facility] HealthcareEvaluation note* Diagnosis Sinusitis, unspecified chronicity, unspecified location- Primary Second trimester ([facility]) state, incidental 17 weeks gestation of ([facility]) Screening, , for anatomic survey ([facility]) Encounter for anatomic survey documented in this encounter [facility] HealthcareEvaluation note* Diagnosis 20 weeks gestation of ([facility]) Second trimester ([facility]) state, incidental Diabetes mellitus screening Screening for diabetes mellitus documented in this encounter [facility] HealthcareEvaluation note* Diagnosis Wellness examination- Primary [...] of control unspecified [facility]* Diagnosis Wellness examination- Primary Hypertension, unspecified type Lipid screening Screening for lipoid disorders 26 weeks gestation of ([facility]) Second trimester ([facility]-HCC) state, incidental induced hypertension, antepartum ([facility]HS-HCC) Transient hypertension of , antepartum Gestational diabetes mellitus (GDM) in second trimester, gestational diabetes method of control unspecified ([facility]-HCC) documented in [facility] encounter [facility]* [...] in third trimester [facility]* Diagnosis 28 weeks gestation of - Primary Insulin controlled gestational diabetes mellitus (GDM) in second trimester Essential hypertension affecting in third trimester [facility]* Diagnosis Essential hypertension affecting in third trimester documented [facility]* Diagnosis Wellness examination- Primary Hypertension, unspecified type Lipid screening Screening for lipoid disorders 29 weeks gestation of ([facility]-H[facility]) Third trimester ([facility]HS-HCC) state, incidental Hypertension affecting , antepartum ([facility]HS-HCC) Gestational diabetes mellitus (GDM), antepartum, gestational diabetes method of control unspecified([facility]) documented in [facility] encounter [facility]* Diagnosis Insulin controlled gestational diabetes mellitus (GDM) in third trimester- Primary Essential hypertension affecting in third trimester [facility]* Diagnosis Insulin controlled gestational diabetes mellitus (GDM) in second trimester documented in this encounter [facility] Health SystemEvaluation note* Diagnosis Insulin controlled gestational diabetes mellitus (GDM) in second trimester documented in this encounter [facility] Narrative - Reported* Type Description Date Medical History headache Surgical HistoryappendectomySurgical Historyshoulder surgerySurgical History endometriosis [facility] [employer] Other History of Present illness Narrative* 26 [...] engaged x 1 year * working at [employer] in [place] [address] Work Phone: Hospital course Narrative No data available for this section [facility] instructions No data available for this section [facility] CenterInstructionsNot on filedocumented in this encounter [facility] SystemInstructionsNot on filedocumented in this encounter [facility] SystemInstructionsNot on filedocumented in this encounter [facility] SystemInstructionsNot on filedocumented in this encounter [facility]Instructions* Attachments The following attachments cannot be sent through Care Everywhere. * Preeclampsia ([place]) documented in this encounterProMedica Health SystemInstructionsNot on file documented in this encounterProMedica Health SystemInstructionsNot on file documented in this encounterProMedica Health SystemInstructionsNot on file documented in this encounterProMedica Health SystemInstructionsNot on file documented in this encounterPro[facility] SystemProgress note No data available for this section [facility] CenterReason for visit NarrativePT HERE AT REQUEST OF DR RODRÍGUEZ FOR EVALUATION AND TREATMENT OF ELVATED LIVER FUNCTION- ( DR. SAMUEL PT), LABS FROM DR RODRÍGUEZ REVIEWED BY DR [facility] [employer] [facility] Other Summary Purpose Family History No Family [...] Bilateral ureterolysis Surgeon: Dr. Charlene Rodriguez Resident/Fellow/Other Hospital Medicine Director: Glory Palacio Anesthesia: general I.V. 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 Referral SpecialtyDiagnoses / ProceduresReferred By ContactReferred To ContactMR IMAGING Diagnoses Pelvic and perineal pain Procedures MRI FEMALE PELVIS WO/W IVCON MRI PELVIS W/O & W/CONTRAST MATERIAL Charlene Rodriguez, [address] [facility] [address] [place] [address] Mr Imaging Referral IDStatusWarren DateExpiration DateVisits RequestedVisits [id number] Auto-Generated Referral /[id number] / ProceduresReferred By ContactReferred To ContactREHAB AND SPORTS THERAPY INS Diagnoses Constipation, unspecified constipation type High-tone pelvic floor dysfunction Diastasis of rectus abdominis Dysmenorrhea Other specified dyspareunia Chronic pelvic pain in female Procedures CONSULT TO PHYSICAL THERAPY PHYSICAL THERAPY EVALUATION HIGH COMPLEX 45 MINS Jihan Downs APRN.ENGLISH DRAWER [address] [facility] [place] [address] [facility] [address] [place] [address] Referral IDStatusWarren DateExpiration DateVisits RequestedVisits [id number] Auto-Generated Referral / Chief Complaint and Reason for Visit Chief Complaint Admit Date N94.10 N80.9 February 02, 2025 3:1 6pm Additional Source Comments INFORMATION SOURCE (unrecogn ized section and content) DATE CREATED AUTHOR 10/26/2020 [facility] DATE CREATED AUTHOR AUTHOR'S ORGANIZ ATION 11/06/2020 [facility] DATE CREATED AUTHOR AUTHOR'S ORGANIZ ATION 12/17/2020 [facility] DATE CREATED AUTHOR AUTHOR'S ORGANIZ ATION 04/21/2021 [facility] DATE CREATED AUTHOR AUTHOR'S ORGANIZ ATION 06/05/2021 [facility] DATE CREATED AUTHOR AUTHOR'S ORGANIZ ATION 10/02/2021 [facility] DATE CREATED AUTHOR AUTHOR'S ORGANIZ ATION 02/10/2022 [employer] DATE CREATED AUTHOR AUTHOR'S ORGANIZ ATION 12/05/2022 [employer] [facility] DATE CREATED AUTHOR AUTHOR'S ORGANIZ ATION 04/30/2024 [facility] DATE CREATED AUTHOR AUTHOR'S ORGANIZ ATION 02/09/2025 [facility] DATE CREATED AUTHOR AUTHOR'S ORGANIZ ATION 03/15/2025 [facility] DATE CREATED AUTHOR AUTHOR'S ORGANIZ ATION 08/03/2025 [facility] DATE CREATED AUTHOR AUTHOR'S ORGANIZ ATION 08/13/2025 [facility] DATE CREATED AUTHOR AUTHOR'S ORGANIZ ATION 08/16/2025 [facility] DATE CREATED AUTHOR AUTHOR'S ORGANIZ ATION 08/20/2025 [facility] DATE CREATED AUTHOR AUTHOR'S ORGANIZ ATION 08/21/2025 [facility] DATE CREATED AUTHOR AUTHOR'S ORGANIZ ATION 08/29/2025 [facility] DATE CREATED AUTHOR AUTHOR'S ORGANIZ ATION 09/06/2025 [facility] DATE CREATED AUTHOR AUTHOR'S ORGANIZ ATION 09/12/2025 [facility] DATE CREATED AUTHOR AUTHOR'S ORGANIZ ATION 10/02/2025 [facility] EPIC Care Team (unrecognized sect ion and content) Team MemberRelationshipSpecialtyStart DateEnd Date Denny Rodríguez MD [address] [place] [address] PCP - GeneralFamily Medicine12/03/14Team MemberRelationshipSpecialtyStart DateEnd Date Denny Rodríguez MD [address] [place] [address] PCP - GeneralFamily Medicine12/03/14Team MemberRelationshipSpecialtyStart DateEnd Date Denny Rodríguez MD [address] [place] [address] PCP - GeneralFamily Medicine12/03/14Team MemberRelationshipSpecialtyStart DateEnd Date Denny Rodríguez MD [address] [place] [address] PCP - GeneralFamily Medicine12/03/14Team MemberRelationshipSpecialtyStart DateEnd Date Denny Rodríguez MD [address] [place] [address] PCP - GeneralFamily Medicine12/03/14Team MemberRelationshipSpecialtyStart DateEnd Date Denny Rodríguez MD [address] [place] [address] PCP - Generalmily Medicine12/03/14Team MemberRelationshipSpecialtyStart DateEnd Date Denny Rodríguez MD [address] [place] [address] PCP - Generalmily Medicine12/03/14Team MemberRelationshipSpecialtyStart DateEnd Date Denny Rodríguez MD [address] [place] [address] PCP - Generalmily Medicine12/03/14Team MemberRelationshipSpecialtyStart DateEnd Date Denny Rodríguez MD [address] [place] [address] PCP - Generalmily Medicine12/03/14Team MemberRelationshipSpecialtyStart DateEnd Date Denny Rodríguez MD [address] [place] [address] PCP - GeneralFamily Medicine12/03/14Team MemberRelationshipSpecialtyStart DateEnd Date Denny Rodríguez MD [address] [place] [address] PCP - [place] Iysdxzqlnd32/1/21 Denny Rodríguez MD [address] [place] [address] PCP - GeneralFamily Medicine04/10/23 Denny Rodríguez MD [address] [place] [address] PCP - [facility]02/24/23 [facility] NP [address] [place] [address] Nurse PractitionerFamily Axcdytgc92/10/23 Trista Thao NP [address] [place] [address] Nurse PractitionerPulmonary Hecnpsq58/10/23Team MemberRelationshipSpecialtyStart DateEnd Date Denny Rodríguez MD [address] [place] [address] PCP - GeneralFamily Medicine12/03/14Team MemberRelationshipSpecialtyStart DateEnd Date Denny Rodríguez MD [address] [place] [address] PCP - GeneralFamily Medicine12/03/14Team MemberRelationshipSpecialtyStart DateEnd Date Denny Rodríguez MD [address] [place] [address] PCP - [place] Bshzdouhkz89/1/21 Denny Rodríguez MD [address] [place] [address] PCP - [facility]02/24/23 Eliceo Beltran DO [address] [place] [address] PCP - [facility]02/14/24Te MemberRelationshipSpecialtyStart DateEnd Date Denny Rodríguez MD [address] [place] [address] PCP - [place] Byvalrsyue18/1/21 Denny Rodríguez MD [address] [place] [address] PCP - [facility]02/24/23 Eliceo Beltran DO [address] [place] [address] [facility] - [facility]02/14/24Te MemberRelationshipSpecialtyStart DateEnd Date Denny Rodríguez MD [address] [place] [address] PCP - [place] Ctcqhumlbm56/1/21 Denny Rodríguez MD [address] [place] [address] PCP - [facility]02/24/23 Eliceo Beltran DO [address] [place] [address] PCP - [facility]02/14/24Team MemberRelationshipSpecialtyStart DateEnd Date Denny Rodríguez MD [address] [place], [facility] PCP - [place] Ukkwpjppyu65/1/21 Denny Rodríguez MD [address] [place], [facility] PCP - [facility]02/24/23 Eliceo Beltran, DO [address] [place] [address] PCP - [facility]02/14/24Team MemberRelationshipSpecialtyStart DateEnd Date Denny Rodríguez MD [address] [place], [facility] PCP - [place] Ewrbqcsvpb59/1/21 Denny Rodríguez MD [address] [place], [facility] PCP - [facility]02/24/23 Eliceo Beltran, DO [address] [place], [facility] PCP - [facility]02/14/24Team MemberRelationshipSpecialtyStart DateEnd Date Denny Rodríguez MD [address] [place] [address] PCP - [place] Fkinmzmjer50/1/21 Eliceo Beltran DO [address] [place] [address] PCP - GeneralFamily Medicine02/14/24Team MemberRelationshipSpecialtyStart DateEnd Date Eliceo Beltran, [address] [place] [address] [facility] - [facility]/14/24Team MemberRelationshipSpecialtyStart DateEnd Date Eilceo Beltran DO [address] [place] [address] PCP - [facility]02/14/24 Team Status: Active Member Role Status Dates Denny Rodríguez MD Primary Care Provider Active Team Status: Inactive Member Role Status Dates Denny Rodríguez MD Primary Care Provider Active S tart: February 02, 2025 End: February 02orepearl Pop DOAttending ProviderActiveStart: February 02, 2025 End: February 02, 2025Team MemberRelationshipSpecialtyStart DateEnd Date Eliceo Beltran DO [address] [place] [address] PCP - [facility]02/14/24 Eliceo Beltran DO [address] [place] [address] PCP - [facility] [employer]07/27/2412Team MemberRelationshipSpecialty Start DateEnd Date Eliceo Beltran, [address] [place] [address] [facility]02/14/24 Eliceo Beltran DO [address] [place] [address] PCP - [facility] [employer]07/27/2412Team MemberRelationshipSpecialty Start DateEnd Date Eliceo Beltran, [address] [place] [address] PCP - [facility] Medicine02/14/24 Eliceo Beltran DO [address] [place] [address] PCP - [facility] [employer]07/27/2412Team MemberRelationshipSpecialty Start DateEnd Date Eliceo Beltran DO [address] [place] [address] PCP - [facility] Medicine02/14/24 Eliceo Beltran DO [address] [place] [address] PCP - [facility] [employer]07/27/2412Team MemberRelationshipSpecialty Start DateEnd Date Eliceo Beltran DO [address] [place] [address] PCP - [facility] Medicine02/14/24 Eliceo Beltran DO [address] [place] [address] PCP - [facility] [employer]07/27/2412Team MemberRelationshipSpecialty Start DateEnd Date Eliceo Beltran DO [address] [place] [address] PCP - [facility] Medicine02/14/24 Eliceo Beltran DO [address] [place] [address] PCP - [facility] [employer]07/27/2412Team MemberRelationshipSpecialty Start DateEnd Date Eliceo Beltran, DO [address] [place] [address] PCP - General[facility] Medicine02/14/24 Eliceo Beltran, DO [address] [place] [address] PCP - [facility] [employer]07/27/2412Team MemberRelationshipSpecialty Start DateEnd Date Eliceo Beltran, DO [address] [place] [address] PCP - [facility] Medicine02/14/24 Eliceo Beltran, DO [address] [place] [address] PCP - [facility] [employer]07/27/2412Team MemberRelationshipSpecialty Start DateEnd Date Eliceo Beltran, DO [address] [place] [address] PCP - [facility] Medicine02/14/24 Eliceo Beltran, DO [address] [place] [address] PCP - [facility] [employer]07/27/2412Team MemberRelationshipSpecialty Start DateEnd Date Eliceo Beltran, DO [address] [place] [address] PCP - GeneralFamily Medicine02/14/24 Eliceo Beltran DO [address] [place] [address] PCP - [facility] [employer]07/27/2412Team MemberRelationshipSpecialty Start DateEnd Date Eliceo Beltran DO [address] [place] [address] PCP - GeneralFamily Medicine02/14/24 Eliceo Beltran, DO [address] [place] [address] PCP - [facility] [employer]07/27/2412Team MemberRelationshipSpecialty Start DateEnd Date Denny Rodríguez MD [address] [place] [address] PCP - GeneralFamily Medicine12/02/18Team MemberRelationshipSpecialtyStart DateEnd Date Denny Rodríguez MD [address] [place] [address] PCP - GeneralFamily Medicine12/02/18Team MemberRelationshipSpecialtyStart DateEnd Date Eliceo Beltran DO [address] [place] [address] PCP - GeneralFamily Medicine02/14/24 Eliceo Beltran DO [address] [place] [address] PCP - [facility] [employer]07/27/2412Team MemberRelationshipSpecialty Start DateEnd Date Eliceo Beltran DO [address] [place] [address] PCP - [facility] Medicine02/14/24 Eliceo Beltran, DO [address] [place] [address] PCP - [facility] [employer]07/27/2412Team MemberRelationshipSpecialty Start DateEnd Date Eliceo Beltran, DO [address] [place] [address] PCP - [facility]02/14/24 Eliceo Beltran DO [address] [place] [address] PCP - [facility] [employer]07/27/2412Team MemberRelationshipSpecialty Start DateEnd Date Eliceo Beltran DO [address] [place] [address] PCP - [facility]02/14/24 Eliceo Beltran, DO [address] [place] [address] [facility] - [facility]07/27/2412Te MemberRelationshipSpecialty Start DateEnd Date Denny Rodríguez MD [address] [place] [address] [facility] - [facility]12/02/18Team MemberRelationshipSpecialtyStart DateEnd Date Eliceo Beltran, DO [address] [place] [address] PCP - GeneralFamily Medicine02/14/24 Eliceo Beltran, [address] [place] [address] PCP - [facility] [employer]07/27/2412Team MemberRelationshipSpecialty Start DateEnd Date Eliceo Beltran DO [address] [place] [address] PCP - GeneralFamily Medicine02/14/24 Eliceo Beltran, DO [address] [place] [address] PCP - [facility] [employer]07/27/2412Team MemberRelationshipSpecialty Start DateEnd Date Denny Rodríguez MD [address] [place] [address] PCP - [facility] Medicine12/02/18Te MemberRelationshipSpecialtyStart DateEnd Date Denny Rodríguez MD [address] [place] [address] PCP - [facility]12/02/18Team MemberRelationshipSpecialtyStart DateEnd Date Eliceo Beltran, DO [address] [place] [address] PCP - [facility]02/14/24 Eliceo Beltran DO [address] [place] [address] PCP - [facility] [employer]07/27/2412Team MemberRelationshipSpecialty Start DateEnd Date Eliceo Beltran DO [address] [place] [address] PCP - GeneralFamily Medicine02/14/24 Eliceo Beltran DO [address] [place] [address] PCP - [facility] [employer]07/27/2412Team MemberRelationshipSpecialty Start DateEnd Date Denny Rodríguez MD [address] [place] [address] PCP - GeneralFamily Medicine12/02/18Team MemberRelationshipSpecialtyStart DateEnd Date Denny Rodríguez MD [address] [place] [address] PCP - GeneralFamily Medicine12/02/18Team MemberRelationshipSpecialtyStart DateEnd Date Denny Rodríguez MD [address] [place] [address] PCP - [place] Pzcpzulusm04/1/ Denny Rodríguez MD [address] [place] [address] PCP - GeneralFamily Medicine Denny Rodríguez MD [address] [place] [address] PCP - [facility]/ Eliceo Beltran DO [address] [place] [address] PCP - GeneralFamily Medicine02/14/24 Eliceo Beltran DO [address] [place] [address] PCP - [facility] [employer]07/27/2412 [facility], ENVIRONMENTAL PROPERTY ASSESSOR [address] [place] [address] Nurse PractitionerFamily Jlwpflib48/10/235 Trista Thao NP [address] [place] [address] Nurse PractitionerPulmonary Suwwehv28/10/235Team MemberRelationship SpecialtyStart DateEnd Date Eliceo Beltran DO [address] [place] [address] PCP - [facility]02/14/24 Eliceo Beltran DO [address] [place] [address] PCP - [facility] [employer]07/27/2412Team MemberRelationshipSpecialty Start DateEnd Date Denny Rodríguez MD [address] [place] [address] PCP - GeneralFamily Medicine12/02/18 Source Comments (unrecognize d section and content) In the event this informatio n is protected by the Federal Confidentiality of Alcohol and Drug Abuse Patient Records regulations: The Federal rules restrict any use of the information to criminally investigate or prosecute any alcohol or drug abuse patient.[facility] HospitalIn the event this information is protected by the Federal Confidentiality of Alcohol and Drug Abuse Patient Records regulations: The Federal rules restrict any use of the information to criminally investigate or prosecute any alcohol or drug abuse patient.[facility] HospitalIn the event this information is protected by the Federal Confidentiality of Alcohol and Drug Abuse Patient Records regulations: The Federal rules restrict any use of the information to criminally investigate or prosecute any alcohol or drug abuse patient.[facility] HospitalIn the event this information is protected by the Federal Confidentiality of Alcohol and Drug Abuse Patient Records regulations: The Federal rules restrict any use of the information to criminally investigate or prosecute any alcohol or drug abuse patient.[facility] HospitalIn the event this information is protected by the Federal Confidentiality of Alcohol and Drug Abuse Patient Records regulations: The Federal rules restrict any use of the information to criminally investigate or prosecute any alcohol or drug abuse patient.[facility] HospitalIn the event this information is protected by the Federal Confidentiality of Alcohol and Drug Abuse Patient Records regulations: The Federal rules restrict any use of the information to criminally investigate or prosecute any alcohol or drug abuse patient.[facility] HospitalIn the event this information is protected by the Federal Confidentiality of Alcohol and Drug Abuse Patient Records regulations: The Federal rules restrict any use of the information to criminally investigate or prosecute any alcohol or drug abuse patient.[facility] HospitalIn the event this information is protected by the Federal Confidentiality of Alcohol and Drug Abuse Patient Records regulations: The Federal rules restrict any use of the information to criminally investigate or prosecute any alcohol or drug abuse patient.[facility] HospitalIn the event this information is protected by the Federal Confidentiality of Alcohol and Drug Abuse Patient Records regulations: The Federal rules restrict any use of the information to criminally investigate or prosecute any alcohol or drug abuse patient.[facility] HospitalIn the event this information is protected by the Federal Confidentiality of Alcohol and Drug Abuse Patient Records regulations: The Federal rules restrict any use of the information to criminally investigate or prosecute any alcohol or drug abuse patient.[facility] HospitalIn the event this information is protected by the Federal Confidentiality of Alcohol and Drug Abuse Patient Records regulations: The Federal rules restrict any use of the information to criminally investigate or prosecute any alcohol or drug abuse patient.[facility] HospitalIn the event this information is protected by the Federal Confidentiality of Alcohol and Drug Abuse Patient Records regulations: The Federal rules restrict any use of the information to criminally investigate or prosecute any alcohol or drug abuse patient.[facility] HospitalIn the event this information is protected by the Federal Confidentiality of Alcohol and Drug Abuse Patient Records regulations: The Federal rules restrict any use of the information to criminally investigate or prosecute any alcohol or drug abuse patient.[facility] HospitalIn the event this information is protected by the Federal Confidentiality of Alcohol and Drug Abuse Patient Records regulations: The Federal rules restrict any use of the information to criminally investigate or prosecute any alcohol or drug abuse patient.[facility] HospitalIn the event this information is protected by the Federal Confidentiality of Alcohol and Drug Abuse Patient Records regulations: The Federal rules restrict any use of the information to criminally investigate or prosecute any alcohol or drug abuse patient.[facility] Reason for Visit (unrecogniz ed section and content) ReasonCommentsMenstrual ProblemReasonCommentsVaginal BleedingReasonComments EndometriosisReasonCommentsInsurance AuthorizationOrilissaReasonCommentsPelvic PainSpecialtyDiagnoses / ProceduresReferred By ContactReferred To ContactOB/FRENCH TUTOR / GYNECOLOGY Diagnoses Painful menstrual periods Painful Periods Procedures OFFICE/OUTPATIENT ESTABLISHED SF MDM 10-19 MIN EST WHI PATIENT Reaper, Jihan, OPERATOR AUTOMATED PROCESS.ENGLISH DRAWER [address] [place] [id number] Jihan Downs, OPERATOR AUTOMATED PROCESS.ENGLISH DRAWER [address] [place] [id number] Referral IDStatusReasonStart DateExpiration DateVisits RequestedVisits [id number]/25/202312/[id number] MRI SpecialtyDiagnoses / ProceduresReferred By ContactReferred To ContactMR IMAGING Diagnoses Pelvic and perineal pain Procedures MRI FEMALE PELVIS WO/W IVCON MRI PELVIS W/O & W/CONTRAST MATERIAL Charlene Rodriguez, DO [address] [place] [address] Mr Imaging [place] [address] Referral IDStatusReasonStart DateExpiration DateVisits RequestedVisits [id number] Auto-Generated Referral /[id number] DateCommentsRefill Stzijdn84/07/2024Reason CommentsMenorrhagiaCramping with bleedingReasonCommentsSurgery Cancelled SpecialtyDiagnoses / ProceduresReferred By ContactReferred To Contact Diagnoses Preeclampsia, severe, third trimester Procedures O14.13 - Preeclampsia, severe, third trimester Kathe Ryder, DO [address] [place] [address] [facility] [address] [place] [address] Referral IDStatusReasonStart DateExpiration DateVisits RequestedVisits [id number] Pressure CheckReasonCommentsDysmenorrhea ReasonCommentsWell Women VisitReasonCommentsShoulder PainReasonCommentsPainful IntercourseReasonCommentsAmenorrheaReasonCommentsRoutine VisitReason CommentsGestational DiabetesSpecialtyDiagnoses / ProceduresReferred By Contact Referred To ContactMaternal and Medicine Diagnoses Gestational diabetes mellitus (GDM) in second trimester, gestational diabetes method of control unspecified Nathan Pop, DO [address] [place] [address] Phone: tel: fax: Maternal- Medicine at [facility] [address] [place] [address] Phone: tel: fax: Referral IDStatusReasonStart DateExpiration DateVisits RequestedVisits [id number] Review Specialty Services Required /[id number] consult Scheduled Active and Recently Administ ered [...] 0112 (New Bag - Provider: Lani Fraga, RN) * 0300 (Stopped - Provider: Lani Fraga [...] every 2-3 minutes with cervical changes or [place] units (MVU) greater than 200 in a [...] BE BASED ON THE PRIMARY CLINICAL RECORDS. [employer] provides no warranty or guarantee of the accuracy or completeness of information in this document.
--- OUTSIDE RECORDS SUMMARY | 2025-10-03 10:16 | XMS_ITS | Encounter Summary ---
Author Organization [facility] Address [address] [place] [address] Care Team Providers Care Financial Management Analyst Name Role Phone Eliceo Beltran DO Primary Care Provider [phone] CharlottegeovaniEliceo kauffman Unavailable [phone] Encounter Details DateTypeDepartmentCare Team (Latest Contact Info)Pfowsiacvdh68/01/2025Clinisync Result Encounter [facility] External Department Unsolicited Steph Keane, DEVYN [address] [facility] [place] [address] Social History Tobacco UseTypesPacks/DayYears UsedDateSmoking Tobacco: NeverSmokeless Tobacco: NeverAlcohol UseStandard Drinks/WeekCommentsNever0 (1 standard drink = 0.6 oz pure alcohol)caffeine: 1-2 cups per day, coffee and [id number] Health Literacy AnswerDate RecordedHow often do you [...] relatives?Once a week12/29/2024How often do you attend islam or baptist services?Patient kacjokjp01/03/2025Do you belong to any clubs or organizations such as islam groups, unions, [employer] or athletic leodan ups, or school groups?No12/29/2024How often do you attend meetings of the clubs or organizations you belong to?Patient ancjxhzy62/03/2025re you , , , , never , [...] hard at all12/29/2024PHQ-2AnswerDate RecordedPatient Health Questionnaire-2 Score0 07/30/2025[facility] of Occupational Health - Occupational Stress QuestionnaireAnswerDate RecordedDo you feel stress - tense, restless, nervous, or anxious, or unable to sleep at night because yourmind is troubled all the time - these days?Only a gfwcrl2912/29/2024Exercise Vital SignAnswerDate Recorded On average, how many [...] steady place to sleep or slept in [facility] (including now)?No09/19/2023Housing Stability Vital [...] the highest degree you have received?High school kdytuxeb07/29/2023 Estimated Date of PwjlnreqBdtgvggnRzc10/03/2026ased on last menstrual period of 02/21/2025Sex and Gender InformationValueDate RecordedSex Assigned at BirthNot on fileLegal HakZscsqb53/15/2023 7:18 PM EDTGender IdentityNot on file Sexual OrientationNot on 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 Not on fileNot on fileNot on filedocumented as of this encounter Plan of Treatment DateTypeDepartmentCare Team (Latest Contact Info)Tegxzfdowhs22/19/2025 3:30 PM ESTRoutine [facility] [place] [facility] [address] [place] [place] [phone] Nathan Pop, DO [address] [facility] [address], [facility] documented as of this encounter Procedures Procedure NamePriorityDate/TimeAssociated DiagnosisCommentsUS OB BPP W NON-WYCBTF1209/26/2025 2:50 PM EDT documented in this encounter Results * US OB BPP W NON-STRESS (09/26/2025 2:50 PM EDT)Anatomical Region LateralityModalityOtherSpecimen (Source)Anatomical Location / Laterality Collection Method / VolumeCollection TimeReceived Time09/26/2025 2:50 PM EDT Narrative 09/26/2025 2:52 PM EDT [facility] ?[address] ? [place] [address] ? Ultrasound Report ? Signed ? Patient: DRISS GAMA ?MR#: [id number] ?? : 1995 ?Acct:[id number] ?? Age/Sex: 30 / F ?ADM Date: 09/26/25 ?? Loc: US ? Attending Dr: Steph Keane ? Ordering Physician: Steph Keane ?? Date of Service: 09/26/25 ?? Procedure(s): US OB BPP w non-stress ?? Accession Number(s): [id number] ? cc: Steph Keane; Yomaira BELTRAN ? [facility] ? [address] ? [place] [address] ? Patient Name: ?? DRISS Daniel GAMA ? MRN: TBH:[id number] ? date: 1995 ?Sex: F ?? Assigned Patient Location: US ?? Current Patient Location: ? Accession/Order Number: [id number] ?? Exam Date: 09/26/2025 ??11:50 ?Report Date: 09/26/2025 ??14:50 ? At the request of: ?? STEPH ??ELSA ? Procedure: ??US OB BPP w non-stress ? Ultrasound biophysical profile ? INDICATION: -induced hypertension ? COMPARISON: 09/19/2025 ? FINDINGS IMPRESSION: Cephalic position. ??8 out of 8 score biophysical profile. ?? LEONEL 11.6 cm. ?? heart 129 bpm ? Impression dictated by: Chu Amaya M.D. ??09/26/2025 2:50 PM ? Dictation Location: RADIO-PC-29 ? Electronically authenticated by: [id number] ??Y ?? Date: 09/26/2025 ??14:50 ? Dictated By: ?Chu Amaya M.D. ? Signed By: ?09/26/25 1452 ? DD/ 1450 ? TD/TT: ? Hadoop Developer: Procedure Note Radiology, Radiologist, MD - 09/26/2025 [place] [address] Ultrasound Report Signed Patient: DRISS GAMA MMR#: [id number] : 1995Acct:[id number] Age/Sex: 30 / FADM Date: 09/26/25 Loc: US Attending Dr: Steph Keane Ordering Physician: Steph Keane Date of Service: 09/26/25 Procedure(s): US OB BPP w non-stress Accession Number(s): [id number] cc: Steph Keane; Yomaira BELTRAN The [address] [address] Patient Name: DRISS GAMA MRN: [id number] date: 1995 Sex: F Assigned Patient Location: US Current Patient Location: Accession/Order Number: [id number] Exam Date: 09/26/2025 11:50 Report Date: 09/26/2025 14:50 At the request of: STEPH KEANE Procedure: US OB BPP w non-stress Ultrasound biophysical profile INDICATION: -induced hypertension COMPARISON: 09/19/2025 FINDINGS IMPRESSION: Cephalic position. 8 out of 8 score biophysicalprofile. LEONEL 11.6 cm. heart 129 bpm Impression dictated by: Chu Amaya M.D. 09/26/2025 2:50 PM Dictation Location: [facility] Electronically authenticated by: [id number] Y Date: 4:50 Dictated By: Chu Amaya M.D. Signed By:09/26/25 1452 DD/ 1450 TD/TT: Hadoop Developer: Authorizing ProviderResult TypeResult StatusSteph Keane NPCLINISYNC IMAGING Final Result documented in this encounter Visit Diagnoses Not on filedocumented in this encounter Care Teams Team MemberRelationshipSpecialtyStart DateEnd Date Eliceo Beltran DO [address] [place] [address] PCP - GeneralFamily Medicine02/14/24 Eliceo Beltran DO [address] [place] [address] PCP - Medical [place] [employer]/documented as of this encounter
--- OUTSIDE RECORDS SUMMARY | 2025-10-03 10:16 | XMS_ITS | Encounter Summary ---
Author Organization [facility] Address [address] [place] [address] Care Team Providers Care Operations Label Clerk Name Role Phone Cruz Rodríguez MD Unavailable + [phone] Cruz Rodríguez MD Primary Care Provider [phone] Cruz Rodríguez MD Unavailable + 54 [facility] OBJECTIVE C DEVELOPER Unavailable Trista Thao OBJECTIVE C DEVELOPER Unavailable [phone] Eliceo Beltran DO Primary Care Provider [phone] Eliceo Beltran DO Unavailable [phone] Encounter Details DateTypeDepartmentCare Team (Latest Contact Info)Hebagpnxqcc83/20/2024linisync Result Encounter [facility] External Department Unsolicited Jony Pop, DO [address] [place] [address] Social History Tobacco UseTypesPacks/DayYears UsedDateSmoking Tobacco: NeverSmokeless Tobacco: NeverAlcohol UseStandard Drinks/WeekCommentsNever0 (1 standard drink = 0.6 oz pure alcohol)caffeine: 1-2 cups per day, coffee and [id number] Health Literacy AnswerDate RecordedHow often do you [...] week12/29/2024How often do you attend temple or confucianism services?Patient nxekaeql81/03/2025Do you belong to any clubs or organizations such as temple groups, unions, [employer] or athletic leodan ups, or school groups?No12/29/2024How often do you attend meetings of the clubs or organizations you belong to?Patient yabbulyd75/03/2025re you , , , , never , [...] hard at all12/29/2024PHQ-2AnswerDate RecordedPatient Health Questionnaire-2 Score0 07/30/2025[facility] [place] of Occupational Health - Occupational Stress QuestionnaireAnswerDate RecordedDo you feel stress - tense, restless, nervous, or anxious, or unable to sleep at night because yourmind is troubled all the time - these days?Only a jqdrei8812/29/2024Exercise Vital SignAnswerDate Recorded On average, how many [...] to sleep or slept in [facility] (including now)?No09/19/2023Housing Stability Vital SignAnswerDate RecordedIn the last 12 months, was there a time when you were not able to pay the mortgage or rent on time?No12/29/2024Number of Times Moved in the Last YearNot on file12/29/2024t any time in the past 12 months, were you homeless or living in a penitentiary (including now)?No12/29/2024 EducationAnswerDate RecordedWhat is the highest level of school you have completed or the highest degree you have received?High school /29/2023 CommentsUnknownSex and Gender InformationValueDate RecordedSex Assigned at BirthNot on fileLegal MleLiplcr37/15/2023 7:18 PM EDTGender IdentityNot on fileSexual OrientationNot on 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 Date CashierNot on fileNot on fileNot on filedocumented as of this encounter Functional Status * AUDIT-C ScoreAnswerDate of DpjlfbshcoCihbbb980/03/2025 10:25 PM ESTChristine, Generic * Q1: How [...] or more drinks on one occasion?AnswerDate of HkwnhgflpsOlubrqPryyh47/03/2025 10:25 PM Chip, Generic * Over the past 2 weeks, how often have you been bothered by any of the following problems?QuestionAnswerDate of AssessmentAuthorLittle interest or pleasure in doing thingsNot at all07/30/2025 3:36 PM Bill Locke LPNFeeling down, depressed, or hopelessNot at all07/30/2025 3:36 PM EDT Bill Gould LPNPatient Health Questionnaire-2 Gkwyy395 3:36 PM Bill Locke LPN documented as of this encounter Plan of Treatment DateTypeDepartmentCare Team (Latest Contact Info)Jhxtsejoqdg75/19/2025 3:30 PM ESTRoutine [facility] [place] [facility] [address] [place] [phone] Jony Pop DO [address] [facility] [place] [address] documented as of this encounter Procedures Procedure NamePriorityDate/TimeAssociated DiagnosisCommentsUS PELVIS W/ ASHOJZJLIENG42/20/2024 11:42 AM EST documented in this encounter Results * US PELVIS W/ TRANSVAGINAL (01/15/2024 11:42 AM EST)Anatomical RegionLaterality ModalityOtherSpecimen (Source)Anatomical Location / LateralityCollection Method / VolumeCollection TimeReceived Time01/15/2024 11:42 AM EST Narrative 01/15/2024 11:44 AM EST [facility] ?[address] ? [place], [facility] ? Ultrasound Report ? Signed ? Patient: ANATOLIY,DRISS M ?MR#: [id number] ?? : 1995 ?Acct:[id number] ?? Age/Sex: 28 / F ?ADM Date: 01/15/24 ?? Loc: [facility]S ? Attending Dr: Jony Pop D.O. ? Ordering Physician: Jony Pop D.O. ?? Date of Service: 01/15/24 ?? Procedure(s): US pelvis w/ transvaginal ?? Accession Number(s): [id number] ? cc: Jony Pop D.O.; Physician,Non-Staff M.D. ? [facility] ? [address] [facility] ? [place] [address] ? Patient Name: ?? DRISS COPE ? MRN: [facility]:[id number] ? date: 1995 ?Sex: F ?? Assigned Patient Location: N[facility]S ?? Current Patient Location: [facility]S ?? Accession/Order Number: [id number] ?? Exam Date: 01/15/2024 ??07:57 ?Report Date: [...] 1144 ? DD/ 1142 ? TD/TT: ? Equipment Tester: Procedure Note Radiology, Radiologist, MD - 01/15/2024 [place] [address] Ultrasound Report Signed Patient: DRISS COPE MMR#: [id number] : 1995Acct:[id number] Age/Sex: 28 / FADM Date: 01/15/24 Loc: NOMS Attending Dr: Jony Pop D.O. Ordering Physician: Jony Pop D.O. Date of Service: 01/15/24 Procedure(s): US pelvis w/ transvaginal Accession Number(s): [id number] cc: Jony Pop D.O.; Physician,Non-Staff M.Mark [place] The [address] [address] Patient Name: DRISS COPE MRN: [id number] date: 1995 Sex: F Assigned Patient Location: [facility] Current Patient Location: [facility] Accession/Order Number: [id number] Exam Date: 01/15/2024 07:57 Report Date: 01/15/2024 [...] M.D. Signed By:01/15/24 1144 DD/ 1142 TD/TT: Equipment Tester: Authorizing ProviderResult TypeResult StatusCorey Kiesha DOCLINISYNC IMAGINGFinal Result documented in this encounter Visit Diagnoses Not on filedocumented in this encounter Care Teams Team MemberRelationshipSpecialtyStart DateEnd Date Cruz Rodríguez MD [address] [place] [address] PCP - [facility]09/26/2112 Cruz Rodríguez MD [address] [place] [address] PCP - [facility] Cruz Rodríguez MD [address] [place] [address] PCP - [facility] Eliceo Beltran DO [address] [place] [address] PCP - GeneralFamily Medicine02/14/24 Eliceo Beltran DO [address] [place] [address] PCP - Medical [place] [employer]07/27/2412 [facility] [place] NP [address] [place] [address] Nurse PractitionerFamily Yqkiltim71/10/235 Trista Thao NP [address] [place] [address] Nurse PractitionerPulmonary Rwlsoij95/10/235documented as of this encounter
--- OUTSIDE RECORDS SUMMARY | 2025-10-03 10:16 | XMS_ITS | Encounter Summary ---
Author Organization [facility] Address [address] [place] [address] Care Team Providers Care Relief Map Modeler Name Role Phone Eliceo Beltran DO Primary Care Provider [phone] CharlottecarolEliceo Unavailable [phone] Encounter Details DateTypeDepartmentCare Team (Latest Contact Info)Vabktvzxgaw76/05/2025amboo flowsheet [facility] [place] [facility] [address] [facility] [place] [phone] Nathan Pop DO [address] [facility] [address], [place] [address] Social History Tobacco UseTypesPacks/DayYears UsedDateSmoking Tobacco: NeverSmokeless Tobacco: NeverAlcohol UseStandard Drinks/WeekCommentsNever0 (1 standard drink = 0.6 oz pure alcohol)caffeine: 1-2 cups per day, coffee and [id number] Health Literacy AnswerDate RecordedHow often do you [...] week12/29/2024How often do you attend faith or amish services?Patient vqpkexvv04/03/2025Do you belong to any clubs or organizations such as faith groups, unions, [employer] or athletic leodan ups, or school groups?No12/29/2024How [...] hard at all12/29/2024PHQ-2AnswerDate RecordedPatient Health Questionnaire-2 Score0 07/30/2025[facility] of Occupational Health - Occupational Stress QuestionnaireAnswerDate RecordedDo you feel stress - tense, restless, nervous, or anxious, or unable to sleep at night because yourmind is troubled all the time - these days?Only a qctqnd2812/29/2024Exercise Vital SignAnswerDate Recorded On average, how many [...] place to sleep or slept in [facility] (including now)?No09/19/2023Housing Stability Vital SignAnswerDate RecordedIn the last 12 months, was there a time when you were not able to pay the mortgage or rent on time?No12/29/2024Number of Times Moved in the Last YearNot on file12/29/2024t any time in the past 12 months, were you homeless or living in a skilled nursing (including now)?No12/29/2024 EducationAnswerDate RecordedWhat is the highest level of school you have completed or the highest degree you have received?High school juukrjon30/29/2023 Estimated Date of XhjsgvatBbdsgykpAvy58/03/2026ased on last menstrual period of 02/21/2025Sex and Gender InformationValueDate RecordedSex Assigned at BirthNot on fileLegal HdeXmqcrn90/15/2023 7:18 PM EDTGender IdentityNot on file Sexual OrientationNot on 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 Not on fileNot on fileNot on filedocumented as of this encounter Plan of Treatment DateTypeDepartmentCare Team (Latest Contact Info)Shuxccalhxg66/19/2025 3:30 PM ESTRoutine [facility] [place] [facility] [address] [facility] [facility] [place] [phone] Nathan Pop DO [address] [facility] [place] [address] documented as of this encounter Visit Diagnoses Not on filedocumented in this encounter Care Teams Team MemberRelationshipSpecialtyStart DateEnd Date Eliceo Beltran DO [address] [address] PCP - GeneralFamily Medicine02/14/24 Eliceo Beltran DO [address] [place] [address] PCP - Medical [place] [employer]07/27/2412documented as of this encounter
[2025-10-03 10:17] VITALS: BP 122/59; PULSE 100
--- OUTSIDE RECORDS SUMMARY | 2025-10-03 10:17 | XMS_ITS | Encounter Summary ---
Author Organization [facility] Address [address] [place] [address] Care Team Providers Care Branch Office Administrator Name Role Phone Eliceo Beltran DO Primary Care Provider [phone] CharlottegeovaniEliceo kauffman Unavailable [phone] Encounter Details DateTypeDepartmentCare Team (Latest Contact Info)Xaxrvdkfkbg09/25/2025Clinisync Result Encounter [facility] External Department Unsolicited Steph Keane, DEVYN [address] [facility] [place] [address] Social History Tobacco UseTypesPacks/DayYears UsedDateSmoking Tobacco: NeverSmokeless Tobacco: NeverAlcohol UseStandard Drinks/WeekCommentsNever0 (1 standard drink = 0.6 oz pure alcohol)caffeine: 1-2 cups per day, coffee and [id number] Health Literacy AnswerDate RecordedHow often do you [...] week12/29/2024How often do you attend faith or islam services?Patient rabridum35/03/2025Do you belong to any clubs or organizations such as faith groups, unions, [employer] or athletic leodan ups, or school groups?No12/29/2024How often do you attend meetings of the clubs or organizations you belong to?Patient pytkowga49/03/2025re you , , , , never , [...] hard at all12/29/2024PHQ-2AnswerDate RecordedPatient Health Questionnaire-2 Score0 07/30/2025[facility] [place] of Occupational Health - Occupational Stress QuestionnaireAnswerDate RecordedDo you feel stress - tense, restless, nervous, or anxious, or unable to sleep at night because yourmind is troubled all the time - these days?Only a txnusn7112/29/2024Exercise Vital SignAnswerDate Recorded On average, how many [...] steady place to sleep or slept in [facility] (including now)?No09/19/2023Housing Stability Vital SignAnswerDate RecordedIn the [...] the highest degree you have received?High school nmmyjjls72/29/2023 Estimated Date of YigciuhgClfawdwoSrq07/03/2026ased on last menstrual period of 02/21/2025Sex and Gender InformationValueDate RecordedSex Assigned at BirthNot on fileLegal IofFwqjoc21/15/2023 7:18 PM EDTGender IdentityNot on file Sexual OrientationNot on 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 [place] [address] documented as of this encounter Procedures Procedure NamePriorityDate/TimeAssociated DiagnosisCommentsUS OB BPP W NON-LEDPIB2709/19/2025 12:17 PM EDT documented in this encounter Results * US OB BPP W NON-STRESS (09/19/2025 12:17 PM EDT)Anatomical Region LateralityModalityOtherSpecimen (Source)Anatomical Location / Laterality Collection Method / VolumeCollection TimeReceived Time09/19/2025 12:17 PM EDT Narrative 09/19/2025 12:19 PM EDT [facility] ?[address] ? [place] [address] ? Ultrasound Report ? Signed ? Patient: DRISS GAMA ?MR#: [id number] ?? : 1995 ?Acct:[id number] ?? Age/Sex: 30 / F ?ADM Date: 09/19/25 ?? Loc: US ? Attending Dr: Steph Keane ? Ordering Physician: Steph Keane ?? Date of Service: 09/19/25 ?? Procedure(s): US OB BPP w non-stress ?? Accession Number(s): [id number] ? cc: Steph Keane; Yomaira BELTRAN ? [facility] ? [address] ? [place] [address] ? Patient Name: ?? DRISS aDniel GAMA ? MRN: [id number] ? date: 1995 ?Sex: F ?? Assigned Patient Location: [facility] ?? Current Patient Location: ? Accession/Order Number: [id number] ?? Exam Date: 09/19/2025 ??10:06 ?Report Date: [...] Dictation Location: RADIO-PC-20 ? Electronically authenticated by: [id number] ??Y ?? Date: 09/19/2025 ??12:17 ? Dictated By: ?Jp Morillo D.O. ? Signed By: ?09/19/25 1219 ? DD/ 1217 ? TD/TT: ? [employer]: Procedure Note Radiology, Radiologist, - 09/19/2025 [place] [address] Ultrasound Report Signed Patient: DRISS GAMA MMR#: [id number] : 1995Acct:[id number] Age/Sex: 30 / FADM Date: 09/19/25 Loc: US Attending Dr: Steph Keane Ordering Physician: Steph Keane Date of Service: 09/19/25 Procedure(s): US OB BPP w non-stress Accession Number(s): [id number] cc: Steph Keane; Yomaira BELTRAN The [address] [address] Patient Name: DRISS GAMA MRN: [id number] date: 1995 Sex: F Assigned Patient [facility]: [facility] Current Patient Location: Accession/Order Number: [id number] Exam Date: 09/19/2025 10:06 Report Date: 09/19/2025 [...] Morillo M.D. 09/19/2025 12:17 PM Dictation Location: [facility]iClinical Electronically authenticated by: [id number] Y Date: 2:17 Dictated By: Jp Morillo D.O. Signed By:09/19/25 1219 DD/ 1217 TD/TT: [employer]: Authorizing ProviderResult TypeResult StatusSteph Keane NPCLINISYNC IMAGING Final Result documented in this encounter Visit Diagnoses Not on filedocumented in this encounter Care Teams Team MemberRelationshipSpecialtyStart DateEnd Date Eliceo Beltran DO [address] [place] [address] [facility] - [facility] Eliceo Beltran DO [address] [place] [address] PCP - Medical [place] [employer]07/27/2412documented as of this encounter
--- OUTSIDE RECORDS SUMMARY | 2025-10-03 10:17 | XMS_ITS | Encounter Summary ---
Author Organization [facility] Address [address] [place] [place] [address] Care Team Providers Care Leather Goods Sales Representative Name Role Phone Eliceo Beltran DO Primary Care Provider [phone] CharlottecarolEliceo Unavailable [phone] Encounter Details DateTypeDepartmentCare Team (Latest Contact Info)Bgqiwaemgdz83/06/2025Telephone [facility] [address] [place] [phone] Nathan Pop DO [address] [facility] [address]reen [place], [facility] Social History Tobacco UseTypesPacks/DayYears UsedDateSmoking Tobacco: NeverSmokeless Tobacco: NeverAlcohol UseStandard Drinks/WeekCommentsNever0 (1 standard drink = 0.6 oz pure alcohol)caffeine: 1-2 cups per day, coffee and [id number] Health Literacy AnswerDate RecordedHow often do you [...] relatives?Once a week12/29/2024How often do you attend religion or pentecostalism services?Patient smjakwpw35/03/2025Do you belong to any clubs or organizations such as religion groups, unions, [email or web address] or athletic leodan ups, or school groups?No12/29/2024How often do you attend meetings of the clubs or organizations you belong to?Patient xmsaxmaw24/03/2025re you , , , , never , [...] RecordedPatient Health Questionnaire-2 Score0 07/30/2025[facility] [place] - Occupational Stress QuestionnaireAnswerDate RecordedDo you feel stress - tense, restless, nervous, or anxious, or unable to sleep at night because yourmind is troubled all the time - these days?Only a zyjewf9512/29/2024Exercise Vital SignAnswerDate Recorded On average, how many [...] steady place to sleep or slept in [facility] (including now)?No09/19/2023Housing Stability Vital SignAnswerDate RecordedIn the last 12 months, was there a time when you were not able to pay the mortgage or rent on time?No12/29/2024Number of Times Moved in the Last YearNot on file12/29/2024t any time in the past 12 months, were you homeless or living in a retirement (including now)?No12/29/2024 EducationAnswerDate RecordedWhat is the highest level of school you have completed or the highest degree you have received?High school qayhegwq04/29/2023 Estimated Date of MwkissckCpsmmuneCbd38/03/2026ased on last menstrual period of 02/21/2025Sex and Gender InformationValueDate RecordedSex Assigned at BirthNot on fileLegal NszYzatpy24/15/2023 7:18 PM EDTGender IdentityNot on file Sexual OrientationNot on 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 Note was given to the provider. documented in this encounter Plan of Treatment DateTypeDepartmentCare Team (Latest Contact Info)Lyaijgbeabn70/19/2025 3:30 PM ESTRoutine [facility] [address] [place] [address] Nathan Pop DO [address] [facility] [place] [address] documented as of this encounter Visit Diagnoses Not on filedocumented in this encounter Care Teams Team MemberRelationshipSpecialtyStart DateEnd Date Eliceo Beltran DO [address] [facility] [address] [place] [address] PCP - GeneralFamily Medicine02/14/24 Eliceo Beltran DO [address] [facility] [address] [place] [address] PCP - Medical [place] [employer]07/27/2412documented as of this encounter
--- OUTSIDE RECORDS SUMMARY | 2025-10-03 10:17 | XMS_ITS | Encounter Summary ---
Author Organization [facility] tem Address [id number] [address] [place] [address] Care Team Providers Care Stock Controller Name Role Phone Cruz Rodríguez MD Primary Care Provider Encounter Details DateTypeDepartmentCare Team (Latest Contact Info)Xcclojrcuid62/03/2025Orders Only Maternal- Medicine at [facility] [address] [place] [phone] Kayleigh Rizzo, PAAlbinC [address] [address] Essential hypertension affecting in third trimester Social [...] or more drinks on one occasion?Never5ChildcareAnswer Date PdockljhEwdrpyzfiHwjouop92/13/2019EmploymentAnswerDate RecordedEmployment Wtbjmha8605/08/2019Hunger ScreeningAnswerDate RecordedWithin the past 12 months we worried whether our food would run out before we got money to buy more.Never True09/10/2025Within the past 12 months the food we bought just didn't last and we didn't have money to get more.Never True09/10/2025Purpose - LifeAnswerDate RecordedPurpose and direction in qblpKwxzohi71/11/2021Estimated Date of JgaijvboXijlwaodZue74/03/2026Based on last menstrual period of 02/21/2025 (Exact Date)Sex and Gender InformationValueDate RecordedSex Assigned at BirthNot on fileLegal KecMqbsjt17/07/2019 2:55 PM ESTGender IdentityNot on fileSexual OrientationNot on filedocumented as of this encounter Plan of Treatment DateTypeDepartmentCare Team (Latest Contact Info)Owxwadrosqo48/10/2025 3:00 PM ESTTelemedicine Maternal- Medicine at [facility] [address] [place] [address] Kayleigh Rizzo PA-C [address] [address] 10/08/2025 8:00 AM ESTAppointment Maternal Medicine [place] [address] [facility] [address] [place] [phone] documented as of this encounter Visit Diagnoses Diagnosis Essential hypertension affecting in third trimester documented in this encounter Care Teams Team MemberRelationshipSpecialtyStart DateEnd Date Cruz Rodríguez MD [address] [place] [address] PCP - GeneralFamily Medicine12/02/18documented as of this encounter
--- OUTSIDE RECORDS SUMMARY | 2025-10-03 10:17 | XMS_ITS | Encounter Summary ---
Author Organization [facility] tem Address [id number] [address] [place] [address] Care Team Providers Care Rehab Therapy Manager Name Role Phone Cruz Rodríguez MD Primary Care Provider [phone] Encounter Details DateTypeDepartmentCare Team (Latest Contact Info)Kseitlesrmb71/03/2025Telephone Maternal- Medicine at [facility] [address] [facility] [place] [phone] Cha Harris, DIALLO Social History Tobacco UseTypesPacks/DayYears [...] or more drinks on one occasion?Never5ChildcareAnswer Date DihtsxqpEgwlpcbeuUfpqqvj89/13/2019EmploymentAnswerDate RecordedEmployment Eurypdu6405/08/2019Hunger ScreeningAnswerDate RecordedWithin the past 12 months we worried whether our food would run out before we got money to buy more.Never True09/10/2025Within the past 12 months the food we bought just didn't last and we didn't have money to get more.Never True09/10/2025Purpose - LifeAnswerDate RecordedPurpose and direction in qzhhTzhjizq56/11/2021Estimated Date of LlougbehHfhhasinYum72/03/2026Based on last menstrual period of 02/21/2025 (Exact Date)Sex and Gender InformationValueDate RecordedSex Assigned at BirthNot on fileLegal OweMzninc51/07/2019 2:55 PM ESTGender IdentityNot on fileSexual OrientationNot [...] change for this week. documented in this encounter Plan of Treatment DateTypeDepartmentCare Team (Latest Contact Info)Sslwdvkynxc84/10/2025 3:00 PM ESTTelemedicine Maternal- Medicine at [facility] [address] [place] [address] Kayleigh Rizzo, PALuis Angel [address] [address] 10/08/2025 8:00 AM ESTAppointment Maternal Medicine [place] [address] [facility] [address] [place] [address] documented as of this encounter Visit Diagnoses Diagnosis Insulin controlled gestational diabetes mellitus (GDM) in second trimester documented in this encounter Care Teams Team MemberRelationshipSpecialtyStart DateEnd Date Cruz Rodríguez MD [address] [place] [address] PCP - GeneralFamily Medicine12/02/18documented as of this encounter
--- OUTSIDE RECORDS SUMMARY | 2025-10-03 10:17 | XMS_ITS | Encounter Summary ---
Author Organization [facility] Address [address] [place] [address] Care Team Providers Care Traveling Clerk Name Role Phone RubyEliceo Bryant DAY Primary Care Provider [phone] Ruby Eliceo Hurtado DO Unavailable [phone] Encounter Details DateTypeDepartmentCare Team (Latest Contact Info)Ucfifnvbxdw59/29/2025Travel Social History Tobacco UseTypesPacks/DayYears UsedDateSmoking Tobacco: NeverSmokeless Tobacco: NeverAlcohol UseStandard Drinks/WeekCommentsNever0 (1 standard drink = 0.6 oz pure alcohol)caffeine: 1-2 cups per day, coffee and [id number] Health Literacy AnswerDate RecordedHow often do you [...] week12/29/2024How often do you attend denominational or religion services?Patient /03/2025Do you belong to any clubs or organizations such as denominational groups, unions, fraternal or athletic leodan ups, or school groups?No12/29/2024How often do you attend meetings of the clubs or organizations you belong to?Patient fpwrulja87/03/2025re you , , , , never , [...] all12/29/2024PHQ-2AnswerDate RecordedPatient Health Questionnaire-2 Score0 07/30/2025[facility] [place] [facility] Occup[facility] - Occupational Stress QuestionnaireAnswerDate RecordedDo you feel stress - tense, restless, nervous, or anxious, or unable to sleep at night because yourmind is troubled all the time - these days?Only a vwamxs8712/29/2024Exercise Vital SignAnswerDate Recorded On average, how many [...] steady place to sleep or slept in [facility] ([facility] now)?No09/19/2023Housing Stability Vital SignAnswerDate RecordedIn the [...] the highest degree you have received?High school esjktelq30/29/2023 Estimated Date of IchfpipqBnwxrperUik09/03/2026ased on last menstrual period of 02/21/2025Sex and Gender InformationValueDate RecordedSex Assigned at BirthNot on fileLegal VlgQtipyc01/15/2023 7:18 PM EDTGender IdentityNot on file Sexual OrientationNot on 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 Not on fileNot on fileNot on filedocumented as of this encounter Plan of Treatment DateTypeDepartmentCare Team (Latest Contact Info)Ayozucxhhro24/19/2025 3:30 PM ESTRoutine [facility] [address] [place] [address] Nathan Pop, DO [address] [place] [address] [place] [address] documented as of this encounter Visit Diagnoses Not on filedocumented in this encounter Care Teams Team MemberRelationshipSpecialtyStart DateEnd Date Eliceo Beltran DO [address] [place] [address] [place] [address] PCP - GeneralFamily Medicine02/14/24 Eliceo Beltran DO [address] [place] [place] [address] PCP - Medical [place] [employer]07/27/2412documented as of this encounter
--- OUTSIDE RECORDS SUMMARY | 2025-10-03 10:17 | XMS_ITS | Clinical Summary ---
Author Organization [facility] Address [address] [place] [address] Care Team Providers Care Turn Out Worker Name Role Phone Eliceo Beltran DO Primary Care Provider [phone] Eliceo Beltran DO Unavailable [phone] Allergies No known active allergies Medications MedicationSigDispense QuantityRefillsLast FilledStart DateEnd DateStatus metoprolol succinate XL (Toprol-XL) 25 MG 24 hr tablet Indications:Hypertension, unspecified typeTake 1 tablet by mouth daily 90 tablet 5Active Vit-Fe Fumarate-FA ( Vitamins) 28-0.8 MG tablet Indications:, unspecified gestational age ([facility]),Encounter for supervision of normal first in first trimester ([facility])Take 1 tablet by mouth Daily 30 tablet 110/6Active Alcohol Swabs (Alcohol Prep Pad) 70 % pads Indications:Gestational diabetes mellitus (GDM), antepartum, gestational diabetes method of control unspecified([facility]),Elevated glucose tolerance test Apply 1 Pad topically Daily Use four times daily to check FSBS. 150 each 5Active Blood Glucose Monitoring Suppl (D-Care Glucometer) w/Device kit Indications:Gestational diabetes mellitus (GDM), antepartum, gestational diabetes method of control unspecified([facility]),Elevated glucose tolerance test1 kit Daily [...] Inject 13 Units under the skin at qgzoflo57/21/2025Active Lancets Ultra Thin misc Indications:Gestational diabetes mellitus (GDM), antepartum, gestational diabetes [...] atotal of 4times daily. 150 strip Expired dgpmlsptad-wstmpix-nrbodamf (Fiorinal) 50-325-40 MG capsule Take 1 capsule by mouth every 4 (four) hours if yplkxs8109/16/2025Discontinued cetirizine (ZyrTEC) 10 MG tablet Take 10 mg by mouth in the morning.09/16/2025Discontinued Ferrous Sulfate (IRON PO) Take 1 tablet by mouth in the morning.09/16/2025Discontinued fluticasone (Flonase) 50 MCG/ACT nasal spray Administer 1 spray into affected nostril(s) in the morning.09/16/2025 Discontinued Active Problems ProblemNoted DateDiagnosed DsqcIdadmped10/29/3476Wlspxmjipsg89/26/2024Obesity (BMI 30-39.9)02/19/2024cquired equinus deformity of foot03/29/2023isplacement of cervical intervertebral disc without auzdicnlib47/04/2023ysmenorrhea 03/29/20232119Thhifosuvezze41/04/6247Azemopxmfzgxu90/04/1808Fuibgmvncybe04/04/2023 Assessment & Plan (07/30/2025 4:00 PM EDT): Record Blood Pressures 2-4 times weekly and record. Return with readings at next appointment. Call with readings if sees significant changes Intractable migraine without aura and with status pagmaoxdzjd21/04/2023Migraines 03/29/2023hronic pelvic pain in vsbecl6903/29/2023ain in female genitalia on tgbazkobtzb58/04/2023ain on kqpdmxmhfo49/04/2023anic oovylqxo70/04/2023 Patellofemoral disorders, left knee03/29/2023atellofemoral disorders, right knee03/29/2023osterior calcaneal pqypbqryy54/04/2023Scapular dyskinesis 03/29/20230967Vgpixvnqw22/04/2023Seasonal allergic rhinitis due to vlnkqh3303/29/2023 Tachycardia, gkquepezcj71/04/2023Tension vlbkxgem12/04/2023Vitamin B12 gypisnnwue80/04/2023Vitamin D unydhsmgmc99/04/2023hronic right shoulder pain 03/29/2023Estimated Date of SpxvckpvUxlrtliyGst31/03/2026Based on last menstrual period of 02/21/2025 Encounters DateTypeDepartmentCare OoosYtrykqrjqxz20/06/2025[place] [address] Nathan Pop DO 09/30/2025 3:00 [place] [address] Nathan Pop, DO Third trimester ([facility]); 31 weeks gestation of ([facility]); Pre-eclampsia in third trimester ([facility])09/30/2025[place] [phone] Nathan Pop DO 5Clinisync Result Encounter NOMS External Department Unsolicited Steph Keane NP 09/23/20258653Xrihpl64/25/2025linisync Result Encounter NOMS External Department Unsolicited Lakhwinder, Steph, NEUROSCIENCE SPECIALIST 09/16/2025 3:20 PM EDTRoutine [facility] [address] [place] [address] Nathan Pop, DO 29 weeks gestation of ([facility]); Third trimester ([facility]); Hypertension affecting , antepartum ([facility]); Gestational diabetes mellitus (GDM), antepartum, gestational diabetes method of control unspecified([facility])09/16/2025amb flowsheet [facility] [address] [place] [address] Nathan Pop, DO 09/11/2025bstract [facility] [address] [place] [address] Nathan Pop, DO 09/09/20250005Geeyrl22/09/2025 3:50 PM EDTRoutine [facility] [address] [place] [address] Steph Keane NP Hypertension affecting , antepartum ([facility]) (Primary Dx); 27 weeks gestation of ([facility]); Second trimester ([facility])09/03/2025linisync Result Encounter NOMS External Department Unsolicited Nathan Pop, DO 09/03/2025amb flowsheet [facility] [address] [place] [phone] Steph Keane NP 09/02/20251369Djvbke59/04/2025linisync Result Encounter NOMS External Department Unsolicited Steph Keane NP 08/28/2025bstract [facility] [place] [address] [place] [address] Eliceo Beltran DO 08/28/2025Telephone [facility] [address] [place] [phone] Radha Rahman RANI 08/27/2025 3:20 PM EDTRoutine [facility] [address] [place] [phone] Steph Keane, DEVYN 26 weeks gestation of ([facility]); Second trimester ([facility]); induced hypertension, antepartum ([facility]); Gestational diabetes mellitus (GDM) in second trimester, gestational diabetes method of control unspecified ([facility])08/27/2025linisync Result Encounter NOMS External Department Unsolicited Steph Keane NP 08/27/2025linisync Result Encounter NOMS External Department Unsolicited Steph Keane NP 08/27/2025amboo flowsheet [facility] [address] [place] [phone] Steph Keane NP 08/25/2025linisync Result Encounter NOMS External Department Unsolicited Provider, Generic External Data 08/20/2025bstract [facility] [address] [place] [phone] Nathan Pop, DO 08/20/2025Telephone [facility] [address] [place] [phone] Steph Keane, DEVYN 08/17/2025bstract [facility] [address] [place] [address] Eliceo Beltran, DO 08/17/2025bstract [facility] [address] [place] [address] Eliceo Beltran, DO 08/17/2025Telephone [facility] [place] [facility] [address] [place] [phone] Nathan Pop, DO 08/12/2025 2:40 PM EDTRoutine [facility] [address] [place] [address] Nathan Pop, 24 weeks gestation of ([facility]); Second trimester ([facility]); Elevated glucose tolerance test08/12/2025 2:00 PM EDTAncillary Procedure [facility] [address] [place] [address] Encounter for follow-up ultrasound of anatomy ([facility])08/12/2025Telephone [facility] [address] [place] [phone] Bill Gould LPN Srosjqm2908/12/2025bstract [facility] [address] [place] [phone] Eliceo Beltran, DO 08/04/2025Telephone [facility] [address] [place] [phone] Bill Gould LPN Wqabkep1007/30/2025 3:40 PM EDTOffice Visit [facility] [address] [place] [phone] Eliceo Beltran, DO Wellness examination (Primary Dx); Hypertension, unspecified type ; Lipid xwlqmoxvv56/04/2025amboo flowsheet [facility] [address] [place] [phone] Eliceo Beltran, DO 07/30/20250264Puivpg67/26/2025Telephone [facility] [address] [place] [address] Nathan Pop, 07/15/2025 3:30 PM EDTRoutine [facility] [address] [facility] [place] [address] Nathan Pop, 20 weeks gestation of ([facility]); Second trimester ([facility]); Diabetes mellitus ozdjrlbpl82/20/2025 2:30 PM EDTAncillary Procedure [facility] [address] [place] [address] [place] [address] Screening, , for anatomic survey ([facility])5Clinisync Result Encounter NOMS External Department Unsolicited Nathan Pop DO from Last 3 Months Immunizations ImmunizationAdministration DatesNext DueDTP / HiB08/01/1996,1995, 1995DTaP, Cjjpxcripij93/08/2000,12/29/1997HPV, Wrzxpnzfmarp82/17/2014, 05/04/2014,2014Hep A, Adult09/11/2014,2014Hep B, Adolescent or Xlboymkwb57/06/1996,1995,1995IPV05/03/2000Influenza, seasonal, injectable, preservative free09/11/2014MMR05/03/2000,08/01/1996Meningococcal VLL5F5004/03/2007OPV08/01/1996,1995,1995Tdap2014 Family History Medical HistoryRelationNameCommentsAnemiaFatherColon cancerFatherCancerMaternal GrandfatherbutchHypertensionMaternal GrandfatherbutchBreast cancerMaternal GrandmotherHypertensionMotherdarleneColon cancerPaternal GrandfatherRelationName StatusCommentsFatherDeceasedMaternal GrandfatherbutchMaternal GrandmotherMother darleneAlivePaternal GrandfatherPaternal GrandmotherAlive Social History Tobacco UseTypesPacks/DayYears UsedDateSmoking Tobacco: NeverSmokeless Tobacco: Never Tobacco Cessation:Counseling Given: Not Answered Alcohol UseStandard Drinks/WeekCommentsNever0 (1 standard drink = 0.6 oz pure alcohol)caffeine: 1-2 cups per day, coffee and lsbG7392 Health LiteracyAnswer Date RecordedHow often do you [...] relatives?Once a week12/29/2024How often do you attend zoroastrianism or uatsdin services?Patient /03/2025Do you belong to any clubs or organizations such as zoroastrianism groups, unions, fraternal or athletic leodan ups, or school groups?No12/29/2024How often do you attend meetings of the clubs or organizations you belong to?Patient istisspr94/03/2025re you , , , , never , [...] hard at all12/29/2024PHQ-2AnswerDate RecordedPatient Health Questionnaire-2 Score0 07/30/2025[facility] [place] [facility] - Occupational Stress QuestionnaireAnswerDate RecordedDo you feel stress - tense, restless, nervous, or anxious, or unable to sleep at night because yourmind is troubled all the time - these days?Only a sspghb6612/29/2024Exercise Vital SignAnswerDate Recorded On average, how many [...] place to sleep or slept in [facility] (including now)?No09/19/2023Housing Stability Vital SignAnswerDate RecordedIn the last 12 months, was there a time when you were not able to pay the mortgage or rent on time?No12/29/2024Number of Times Moved in the Last YearNot on file12/29/2024t any time in the past 12 months, were you homeless or living in a fpc (including now)?No12/29/2024 EducationAnswerDate RecordedWhat is the highest level of school you have completed or the highest degree you have received?High school wdiwlybb47/29/2023 Estimated Date of KdlyaqriHhmqecmuRzk29/03/2026ased on last menstrual period of 02/21/2025Sex and Gender InformationValueDate RecordedSex Assigned at BirthNot on fileLegal NymVoqkdg36/15/2023 7:18 PM EDTGender IdentityNot on file Sexual OrientationNot on 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 Not on fileNot on fileNot on file Last Filed Vital Signs Vital SignReadingTime TakenCommentsBlood Weozlsiz061/8211 3:04 PM EST Fcjdp728307/30/2025 3:36 PM QTBCfridcnhpkn02.2 ??C (97.1 ??F)07/30/2025 3:36 PM EDTRespiratory Bnuz271012/23/2022 4:16 PM ESTOxygen Qjemcbysbw98%07/30/2025 3:36 PM EDTInhaled Oxygen Concentration--Wspuqt95.3 kg (166 lb)09/30/2025 3:04 PM EST Nudnmj199.5 cm (5' 2 )07/30/2025 3:36 PM EDTBody Mass Index30.3609 3:36 PM EDT Plan of Treatment DateTypeDepartmentCare Team (Latest Contact Info)Vzazdhhlsww11/19/2025 3:30 PM ESTRoutine [facility] [address] [place] [phone] Nathan Pop, [address] [place], [place] [phone] Health MaintenanceDue DateLast DoneCommentsCOVID-19 Vaccine ( season) 2025Influenza Vaccine (#1)/Pap Smear08/18/2027 08/18/2024, 08/15/2023, 06/20/2022, Additional history existsCervical Cancer Pevrxnqcr29/09/2028HPV/Qpoiiy08neumococcal Vaccine: Pediatrics (0 to 5 Years) and At-Risk Patients (6 to 64 Years)Aged OutNo longer eligible based on patient's age to complete this topic Procedures Procedure NamePriorityDate/TimeAssociated DiagnosisCommentsPOCT URINALYSIS NHAKOZWRBjdqfcs49/05/2025 3:13 PM EST Third trimester ([facility]) US OB BPP W NON-LYQMJJ4709/26/2025 2:50 PM EDT US OB BPP W NON-HMYZOI6609/19/2025 12:17 PM EDT POCT URINALYSIS THKHENJVFhftsgg41/22/2025 4:09 PM EDT 29 weeks gestation of ([facility]) Third trimester ([facility]) ALL CBC WITH AUTO YMTMJcvqckm96/09/2025 5:15 PM EDT MHPT TINTUKRSTSGzkhlxr83/09/2025 5:15 PM EDT C[facility] HVOMLqkitrl12/09/2025 5:15 PM EDT SRMCOH PROTHROMBIN TIME INR W/O WDLMYtvyifi11/09/2025 5:15 PM EDT C[facility] HDBBmexmoz72/09/2025 5:15 PM EDT [facility] CJTIrzpmjn02/09/2025 5:15 PM EDT ALL URIC DPLNJnkmfsq18/09/2025 5:15 PM EDT TBH GMHFYFRMMZMqtskmn71/09/2025 5:15 PM EDT ALL TDEFshwvep91/09/2025 5:15 PM EDT TBH URINE T PROTEIN CREAT KMFFNWtwnqpr39/09/2025 5:05 PM EDT POCT URINALYSIS XNWRFEQBMzzjvqb23/09/2025 4:26 PM EDT 27 weeks gestation of ([facility]) TBH TOTAL PROTEIN 24 HOUR SRDUNEwrncqx37/04/2025 8:00 AM EDT US OB BPP W NON-WPASFB4008/27/2025 6:02 PM EDT TBH URINE T PROTEIN CREAT YNRCWBprtezz24/02/2025 5:50 PM EDT C[facility] PYZTqxyfmo05/02/2025 5:00 PM EDT C[facility] JYQCZvdzosr63/02/2025 5:00 PM EDT SRMCOH PROTHROMBIN TIME INR W/O ZRQJDxrclkv35/02/2025 5:00 PM EDT ALL UWHYdrvufa65/02/2025 5:00 PM EDT CCF KUDVhmntxd15/02/2025 5:00 PM EDT ALL URIC RDJKDcnaxhf33/02/2025 5:00 PM EDT TBH CAGLCBRSIOFpyifte63/02/2025 5:00 PM EDT ALL PXQOqagynh62/02/2025 5:00 PM EDT ALL CBC WITH AUTO ACXTRxglnat62/02/2025 5:00 PM EDT POCT URINALYSIS ITXQNNCFZgrahtt16/02/2025 3:53 PM EDT 26 weeks gestation of ([facility]) URINE CULTURE, CYCOXNYNdilqee10/30/2025 8:10 AM EDT POCT URINALYSIS VFOHGUQJPxflsrm03/17/2025 2:39 PM EDT 24 weeks gestation of ([facility]) Second trimester ([facility]) US OB LIMITED 1+ SGTGSPKBoqvgte41/17/2025 2:22 PM EDT Encounter for follow-up ultrasound of anatomy ([facility]) AFP, SERUM, OPEN SPINA TBEIMYXaweybn11/20/2025 5:07 PM EDT POCT URINALYSIS BTBVRSGPMaobdky03/20/2025 3:50 PM EDT 20 weeks gestation of ([facility]) Second trimester ([facility]) US OB 14+ WEEKS ANATOMY UTUVHpsvugz88/20/2025 3:26 PM EDT Screening, , for anatomic survey ([facility]) PAP OTGJCJhlgrme35/23/2024 12:00 AM EDTTHINPREP PAP AND HPV MRNA E6/E7 W/RFL HPV 16,18/38Rpkjxpl83/09/2023 4:00 PM EDT Well woman exam with routine gynecological exam from Last 3 Months or Most Recently Relevant to Health Maintenance Results * POCT urinalysis dipstick manually resulted (09/30/2025 3:13 PM EST) Only the most recent of6 resultswithin the [...] Location / LateralityCollection Method / VolumeCollection TimeReceived AkzhYciie12/05/2025 3:13 PM EST Narrative Authorizing ProviderResult TypeResult StatusCorey Kiesha DOPOINT OF CARE TEST ENTER/EDIT ORDERABLESFinal Result * US OB BPP W NON-STRESS (09/26/2025 2:50 PM EDT) Only the most recent of3 resultswithin the time period is included. Anatomical RegionLateralityModalityOtherSpecimen (Source)Anatomical Location / LateralityCollection Method / VolumeCollection TimeReceived Time09/26/2025 2:50 PM EDT Narrative 09/26/2025 2:52 PM EDT [facility] ?[address] ? [place] [address] ? Ultrasound Report ? Signed ? Patient: DRISS GAMA ?MR#: [id number] ?? : 1995 ?Acct:[id number] ?? Age/Sex: 30 / F ?ADM Date: 09/26/25 ?? Loc: US ? Attending Dr: Steph Keane ? Ordering Physician: Steph Keane ?? Date of Service: 09/26/25 ?? Procedure(s): US OB BPP w non-stress ?? Accession Number(s): [id number] ? cc: Steph Keane; Yomaira BELTRAN ? [facility] ? [address] ? [place] [address] ? Patient Name: ?? DRISS Sanchez JAYY ? MRN: [facility]:[id number] ? date: 1995 ?Sex: F ?? Assigned Patient Location: US ?? Current Patient Location: ? Accession/Order Number: [id number] ?? Exam Date: 09/26/2025 ??11:50 ?Report Date: [...] Dictation Location: RADIO-PC-29 ? Electronically authenticated by: [id number] ??Y ?? Date: 09/26/2025 ??14:50 ? Dictated By: ?Cuh Amaya M.D. ? Signed By: ?09/26/251451 ? DD/ 49 ? TD/TT: ? Vehicle Upholsterer: Procedure Note Radiology, Radiologist, - 09/26/2025 [place] [address] Ultrasound Report Signed Patient: DRISS GAMA MMR#: [id number] : 1995Acct:[id number] Age/Sex: 30 / FADM Date: 09/26/25 Loc: US Attending Dr: Steph Keane Ordering Physician: Steph Keane Date of Service: 09/26/25 Procedure(s): US OB BPP w non-stress Accession Number(s): [id number] cc: Steph Keane; Yomaira BELTRAN [facility] [place] [id number] Patient Name: DRISS GAMA MRN: [facility]:[id number] date: 1995 Sex: F Assigned Patient Location: US Current Patient Location: Accession/Order Number: [id number] Exam Date: 09/26/2025 11:50 Report Date: 09/26/2025 14:50 At the request of: STEPH KEANE Procedure: US OB BPP w non-stress Ultrasound biophysical profile INDICATION: -induced hypertension COMPARISON: 09/19/2025 FINDINGS IMPRESSION: Cephalic position. 8 out of 8 score biophysicalprofile. LEONEL 11.6 cm. heart 129 bpm Impression dictated by: Chu Amaya M.D. 09/26/2025 2:50 PM Dictation Location: [place] [address] Electronically authenticated by: [id number] Y Date: 4:50 Dictated By: Chu Amaya M.D. Signed By:09/26/25 1452 DD/ 1450 TD/TT: Vehicle Upholsterer: Authorizing ProviderResult TypeResult StatusSteph Keane NPCLINISYNC IMAGING Final Result * (ABNORMAL) TBH CREATININE (09/03/2025 5:15 PM EDT) Only the most recent of2 resultswithin the time period is included. ComponentValueRef RangeTest MethodAnalysis TimePerformed AtPathologist Signature CREATININE0.42(L)0.55 - 1.02 mg/dLTBHTBH EGFR-AF [place]>60>=60 mL/min/1.73m 2 TBHTBH EGFR-NON AF [place]>60>=60 mL/min/1.73m 2TBHSpecimen (Source)Anatomical Location / LateralityCollection Method / VolumeCollection TimeReceived Time 09/03/2025 5:15 PM EDT1 5:21 PM EDT Narrative CLINISYNC - 09/03/2025 5:40 PM EDT Authorizing ProviderResult TypeResult StatusCorey Kiesha DOCLINISYNCFinal Result Performing OrganizationAddressCity/State/ZIP CodePhone Number [facility] * SRMCOH PROTHROMBIN TIME INR W/O [...] Kiesha DOCLINISYNCFinal Result Performing OrganizationAddressCity/State/ZIP CodePhone Number [facility] * (ABNORMAL) MHPT FIBRINOGEN (09/03/2025 5:15 PM EDT)ComponentValueRef RangeTest MethodAnalysis TimePerformed AtPathologist PzulfhnryRWUUIIAZES256(H)200 - 400 mg/dLTBHSpecimen (Source)Anatomical Location / LateralityCollection Method / VolumeCollection TimeReceived Time09/03/2025 5:15 PM EDT1 5:21 PM EDT Narrative CLINISYNC - 09/03/2025 5:45 PM EDT Authorizing ProviderResult TypeResult StatusCorey Kiesha DOCLINISYNCFinal Result Performing OrganizationAddressCity/State/ZIP CodePhone Number CLINISYNC TBH * CCF AST (09/03/2025 5:15 PM EDT) Only the most recent of2 resultswithin the time period is included. ComponentValueRef RangeTest MethodAnalysis TimePerformed AtPathologist Signature ASPARTATE AMINO JSQZSQYZTYJ0563 - 37 U/LTBHSpecimen (Source)Anatomical Location / LateralityCollection Method / VolumeCollection TimeReceived Time09/03/2025 5:15 PM EDT1 5:21 PM EDT Narrative CLINISYNC - 09/03/2025 5:40 PM EDT Authorizing ProviderResult TypeResult StatusCorey Kiesha DOCLINISYNCFinal Result Performing OrganizationAddressCity/State/ZIP CodePhone Number CLINISYNC [facility] * CCF APTT (09/03/2025 5:15 PM EDT) [...] ComponentValueRef RangeTest MethodAnalysis TimePerformed AtPathologist Signature ALANINE RGQQQJMKREIMHEUH5158 - 59 U/LTBHSpecimen (Source)Anatomical Location / LateralityCollection Method / VolumeCollection TimeReceived Time09/03/2025 5:15 PM EDT1 5:21 PM EDT Narrative CLINISYNC - 09/03/2025 5:40 PM EDT Authorizing ProviderResult TypeResult StatusCorey Kiesha DOCLINISYNCFinal Result Performing OrganizationAddressCity/State/ZIP CodePhone Number [facility] * ALL URIC ACID (09/03/2025 5:15 [...] Kiesha DOCLINISYNCFinal Result Performing OrganizationAddressCity/State/ZIP CodePhone Number [facility] [place] [facility] * (ABNORMAL) ALL CBC WITH AUTO [...] - 35.2 g/dLTBHTBH RDW13.611.0 - 15.0 %TBHTBH SOP083425 - 450 10 3/uLTBHTBH MPV9.89.5 - 13.5 [...] Kiesha DOCLINISYNCFinal Result Performing OrganizationAddressCity/State/ZIP CodePhone Number [facility] * ALL BUN (09/03/2025 5:15 PM EDT) [...] OrganizationAddressCity/State/ZIP CodePhone Number CLINISYNC TB * (ABNORMAL) TBH URINE T PROTEIN CREAT [...] Kiesha DOCLINISYNCFinal Result Performing OrganizationAddressCity/State/ZIP CodePhone Number [facility] * (ABNORMAL) TBH TOTAL PROTEIN 24 HOUR URINE (08/29/2025 8:00 AM EDT)Component ValueRef RangeTest MethodAnalysis TimePerformed AtPathologist SignatureTOTAL PROTEIN URINE GYGKKC10.6(H)<=11.9 mg/dLTBHTOTAL VOLUME 24 HOUR UTQAI625gT/24hr TBHTBH TOTAL PROTEIN 24 HOUR YGFTT538.6<=149.1 mg/24hrTBHSpecimen (Source) Anatomical Location / LateralityCollection Method / VolumeCollection Time Received Time08/29/2025 8:00 AM EDT1 10:35 AM EDT Narrative CLINISYNC - 08/29/2025 12:08 PM EDT Authorizing ProviderResult TypeResult StatusGeneric External Data Provider CLINISYNCFinal ResultPerforming OrganizationAddressCity/State/ZIP CodePhone Number [facility] * ALL LDH (08/27/2025 5:00 PM EDT)ComponentValueRef RangeTest MethodAnalysis TimePerformed AtPathologist SignatureLACTATE BCBHIWQQPUVIX81914 - 234 U/LTBH Specimen (Source)Anatomical Location / LateralityCollection Method / Volume Collection TimeReceived Time08/27/2025 5:00 PM EDT1 5:01 PM EDT Narrative CLINISYNC - 08/27/2025 5:19 PM EDT Authorizing ProviderResult TypeResult StatusSteph Keane NPCLINISYNCFinal ResultPerforming OrganizationAddressCity/State/ZIP CodePhone Number [facility] * URINE CULTURE, ROUTINE (08/25/2025 8:10 AM EDT)ComponentValueRef RangeTest MethodAnalysis TimePerformed AtPathologist SignatureURINE CULTURE, ROUTINE ??Urine Culture, Routine TBHURINE CULTURE, ROUTINEMixed urogenital floraTBHURINE CULTURE, LYTNFXI89,000- 50,000 colony forming units per mLTBHURINE CULTURE, ROUTINEPerformed at: [facility] LabSchoolcraft Memorial HospitalTBHURINE CULTURE, [id number] [place], [place] [id number] URINE CULTURE, ROUTINELab Director: Cm Sandoval PhD, Phone: [phone] Specimen (Source)Anatomical Location / LateralityCollection Method / Volume Collection TimeReceived Time08/25/2025 8:10 AM EDT08/25/2025 8:30 AM EDT Narrative JENNIFER - 08/26/2025 10:07 PM EDT Authorizing ProviderResult TypeResult StatusGeneric External Data ProviderLAB BLOOD ORDERABLESFinal ResultPerforming OrganizationAddressCity/State/ZIP Code Phone Number [facility] * US OB limited 1+ fetuses [...] within 10 days. MATERNAL AGE AT EDD30.7. yrTBHRACECaucasian.RGGJCQFQO651. lbsTBHINSULIN DEP DIABETESNo.TBHMULTIPLE GESTATIONNo.TBHAFP VALUE59.2. ng/mLTBHAFP MOM0.95.TBHOSBR RISK 1 VW51692.TBHINTERPRETATIONComment.TBHComment: Interpretation: Screen Negative This result is screen [...] Customer Services to discuss available options. ??[employer] Gynecologists recommends amniocentesis be offered to women age 35 and older. COMMENT:Comment.TBHComment: Amy Ramos, Ph.D., [facility] Director References: Available Upon Request. Multiples Of Median Cutoffs ?For AFP Elevations Hsieh ?? 2.5 ? Black ?2.8 IDD ? 2.0 ? Twins ?4.5 ?Abbreviation Definitions IDD - Insulin Dep Diabetes OSBR - Open Spina Bifida Risk For further inquiries contact [employer] at [phone]. This test was developed and its performance characteristics determined by [employer]. It has not been cleared or approved by the Food and Drug Administration. Performed at: ??[facility] [address] [facility], [place], [place] ??[id number] Soot Blower: Dona Justin [facility], Phone: ??[phone] Specimen (Source)Anatomical Location / LateralityCollection Method / Volume Collection TimeReceived Time07/15/2025 5:07 PM EDT07/15/2025 5:10 PM EDT N[facility]ative [facility] 1[facility]07 AM EDT N N LMP [id number] 2 17 N 1 Y 146 N N N N N White/ Authorizing ProviderResult TypeResult StatusGeneric External Data ProviderLAB BLOOD ORDERABLESFinal ResultPerforming OrganizationAddressCity/State/ZIP Code Phone Number [facility] * OB 14+ weeks anatomy scan (07/15/2025 [...] ?? , PHD at 16-Jul-2025 08:07:07 AM [facility] Procedure Note Travis Rueda MD - [...] signed by TRAVIS RUEDA II, MD, PHD [id number] 08:07:07 AM [facility] Authorizing ProviderResult TypeResult StatusCorey Kiesha DOI OB US PROCEDURES Final Result * Pap Smear (08/18/2024 12:00 AM EDT)Specimen (Source)Anatomical Location / LateralityCollection Method / VolumeCollection TimeReceived TimeSwabCervical swab / Unknown Narrative Authorizing ProviderResult TypeResult StatusFazio Nurse [facility] CYTOLOGY ORDERABLESFinal ResultPerforming OrganizationAddressCity/State/ZIP CodePhone Number EXTERNAL LAB * THINPREP PAP AND HPV MRNA E6/E7 W/RFL HPV 16,18/45 (09/03/2023 4:00 PM EDT) Narrative Authorizing ProviderResult TypeResult StatusAmy [facility] BLOOD ORDERABLES Final ResultPerforming OrganizationAddressCity/State/ZIP CodePhone Number EXTERNAL LAB from Last 3 Months or Most Recently Relevant to Health Maintenance Insurance Care Teams Team MemberRelationshipSpecialtyStart DateEnd Date Eliceo Beltran DO [address] [place] [address] PCP - GeneralFamily Medicine02/14/24 Eliceo Beltran DO [address] [place] [address] PCP - Medical [place] [employer]07/27/2412
--- OUTSIDE RECORDS SUMMARY | 2025-10-03 10:17 | XMS_ITS | Clinical Summary ---
Author Organization [email or web address] tem Address [id number] [address] [place] [address] Care Team Providers Care Photo Tech Name Role Phone Cruz Rodríguez MD Primary Care Provider [phone] Allergies No known active allergies Medications MedicationSigDispense [...] 23 units subQ at bedtime. 15 mL 5Active rizatriptan SYSTEMS TECHNOLOGIST (MAXALT-SYSTEMS TECHNOLOGIST) 5 mg disintegrating tablet Dissolve 1 tablet [...] total) by mouth in the morning.09/04/2025Discontinued () dgcmnxfurc-euekabf-kqukllum (FIORINAL) 50-325-40 mg per capsule Take 1 [...] 13 units subQ at bedtime. 15 mL /Discontinued insulin glargine-yfgn 100 unit/mL (3 mL) insulin pen Indications:Essential hypertension affecting in third trimesterPrime with 2 units and give 17 units subQ at bedtime. 15 mL /Discontinued insulin glargine-yfgn 100 unit/mL (3 mL) insulin pen Indications:Essential hypertension affecting in third trimesterPrime with 2 units and give 5 units every morning and 17 units subQ at bedtime. 15 mL Discontinued insulin glargine-yfgn 100 unit/mL (3 mL) insulin pen Indications:Essential hypertension affecting in third trimesterPrime with 2 units and give 5 units every morning and 20 units subQ at bedtime. 15 mL Discontinued Active Problems ProblemNoted DateDiagnosed DateEssential hypertension affecting in third gobvucsxb53/10/2025Insulin controlled gestational diabetes mellitus (GDM) in third smzyalxwh36/26/2025Estimated Date of DeliveryCommentsYes 11/28/2025ased on last menstrual period of 02/21/2025 (Exact Date) Encounters DateTypeDepartmentCare JvgzHsciriewtjn23/03/2025Telephone Maternal- Medicine at [facility] [address] [place] [address] Cha Harris RN 09/28/2025Orders Only Maternal- Medicine at [facility] [address] [place] [address] Kayleigh Rizzo PA-C Essential hypertension affecting in third kbqszphmu72/27/2025Telephone Maternal- Medicine at [facility] [address] [place] [address] Verito Gudino LD 09/21/2025Remote Patient Monitoring Maternal- Medicine at [facility] [address] [place] [address] Kayleigh Rizzo PA-C Insulin controlled gestational diabetes mellitus (GDM) in third trimester (Primary Dx); Essential hypertension affecting in third vtjrqkbav62/23/2025Orders Only Maternal- Medicine at [facility] [address] [place] [address] Camila Arciniega, MOLD INSPECTOR-PADDYM Essential hypertension affecting in third ggjlzgody88/22/2025Telephone Maternal- Medicine at [facility] [address] [place] [address] Cha Harris, DIALLO 09/15/2025Orders Only Maternal- Medicine at [facility] [address] [place] [address] Kayleigh Rizzo PA-C Essential hypertension affecting in third afnjhqgne09/16/2025 11:00 AM EDTTelemedicine Maternal Medicine [place] [address] [facility] [address] [place] [address] Madhuri Clements MD 28 weeks gestation of (Primary Dx); Insulin controlled gestational diabetes mellitus (GDM) in second trimester; Essential hypertension affecting in third ofdxyhfed61/16/2025Orders Only Maternal- Medicine at [facility] [address] [place] [address] Zora Samuels, DIALLO Essential hypertension affecting in third trimester (Primary Dx); Insulin controlled gestational diabetes mellitus (GDM) in second trimester; Encounter for follow-up ultrasound of qrhjiwk2709/10/20254129Svgzhd38/10/2025 3:00 PM EDTOffice Visit Maternal- Medicine at [facility] [address] [place] [address] Jean Carlos Pina MD Diet controlled gestational diabetes mellitus (GDM) in second trimester (Primary Dx); Essential hypertension affecting in third rpipgpsaj12/08/2025Travel 09/01/2025Telephone Maternal- Medicine at [facility] [address] [place] [address] Cha Harris RN 08/24/2025 1:30 PM EDTSupport Visit Maternal- Medicine at [facility] [address] [place] [address] Teena Sarmiento RN [place], Kelli, RD Gestational diabetes mellitus (GDM) in second trimester, gestational diabetes method of control cjlzmmhxysw30/28/5920Dudltg91/27/8428Csyjfq25/26/2025bstract Maternal- Medicine at [facility] [address] [place] [address] External, Scanning Provider 08/19/2025Orders Only Maternal- Medicine at [place] [address] [place] [address] Ref Prov, Not In System 08/18/2025bstract Maternal- Medicine at [place] [address] [place] [address] Madhuri Clements MD 08/18/2025Orders Only Maternal- Medicine at [place] [address] [place] [address] Khalida Garrett, DIALLO History of pre-eclampsia in prior , currently [...] or more drinks on one occasion?Never5ChildcareAnswer Date RltutfbiJryvicgrsIacvhuo24/13/2019EmploymentAnswerDate RecordedEmployment Aflufig7405/08/2019Hunger ScreeningAnswerDate RecordedWithin the past 12 months we worried whether our food would run out before we got money to buy more.Never True09/10/2025Within the past 12 months the food we bought just didn't last and we didn't have money to get more.Never True09/10/2025Purpose - LifeAnswerDate RecordedPurpose and direction in sjnfAsewhlf44/11/2021Estimated Date of HbbarzhbPyvxtkptPns32/03/2026Based on last menstrual period of 02/21/2025 (Exact Date)Sex and Gender InformationValueDate RecordedSex Assigned at BirthNot on fileLegal LxnTyxohh47/07/2019 2:55 PM ESTGender IdentityNot on fileSexual OrientationNot on file Last Filed Vital Signs Vital SignReadingTime TakenCommentsBlood Apmvybxe558/801 10:34 AM EDT Uegtj04149/10/2025 2:48 PM EDTTemperature--Respiratory Mjmj902812/10/2018 11:10 AM ESTOxygen Zxgaxpzunp65%12/10/2018 11:10 AM ESTInhaled Oxygen Concentration-- Gscvao04.6 kg (160 lb)09/10/2025 10:34 AM CEGAxmzas808.5 cm (5' 2.01 )09/04/2025 2:48 PM EDTBody Mass Index29.261 2:48 PM EDT Plan of Treatment DateTypeDepartmentCare Team (Latest Contact Info)Ryuohseojxo03/10/2025 3:00 PM ESTTelemedicine Maternal- Medicine at [facility] [address] [place] [address] Kayleigh Rizzo PA-C [address] [facility] [address] [place] [address] 10/08/2025 8:00 AM ESTAppointment Maternal Medicine [place] [address] [facility] [address] [place] [address] Health MaintenanceDue DateLast DoneCommentsDepression Symxeksbo35/08/2007dult BMI Follow Up Plan2013DTaP,Tdap and Td Vaccines (7 - Td or Tdap)2024 2014, 05/03/2000, 12/29/1997, Additional history existsInfluenza Vaccine /RSV ( or age 60+ yrs) (1 - Risk 1-dose series)10/03/2025dult BMI Hlwnhlebx88/Tobacco Screening Pap Smear Medical Devices Not on file Procedures Procedure NamePriorityDate/TimeAssociated DiagnosisCommentsUS [facility] COMPREHENSIVE ANATOMIC MUBYDUSbjgufc56/16/2025 10:56 AM EDT History of pre-eclampsia in prior , currently GLUCOSE TOLERANCE, 3 ZOMLFVhpgahq24/20/2025 GLUCOSE TOLERANCE, UBHOGJYTnsrefu20/20/2025 GLUCOSE TOLERANCE, 1 JNCRRdykzwc11/20/2025 SECOND HOUR GLUCOSE TOLERANCE 100 GM JIVTDncbxed81/20/2025 ULTRASOUND RLYFBKTuweada69/17/2025 3:39 PM EDTGLU 1H POST 50G LOADRoutine 08/12/2025 ULTRASOUND FAPLWONsikpct14/20/2025 3:43 PM EDTAFP SINGLE MARKER SCRN, MATERNAL, RSALQVinzdfq83/20/2025 10:17 AM EDTUNLISTED LAB SGDNRiuwssz44/09/2025 11:17 AM EDTfrom Last 3 Months Results * US M COMPREHENSIVE ANATOMIC SURVEY (09/10/2025 10:56 AM EDT)Anatomical RegionLateralityModalityOB-GYNUltrasoundSpecimen (Source)Anatomical Location / LateralityCollection Method / VolumeCollection TimeReceived Time09/10/2025 9:58 AM EDT Narrative 09/10/2025 3:55 PM EDT NAME: ??JAYY REYNAGA : 1995 SEX: F Accession Number: [id number] ORDERING PHYSICIAN: MADHURI CLEMENTS REFERRING PHYSICIAN: JONY MEJÍA Coding Procedures ? 25608: Ultrasound, uterus, real time with image documentation, and maternal evaluation ? plus detailed anatomic examination, transabdominal approach;single or first gestation ? 75970: Ultrasound, uterus, real time with image documentation, transvaginal Indication Screening for Anatomic Survey , Screening for cervical length , Gestational diabetes, Chronic hypertension affecting , History of prior with pre-eclampsia , History of prior with delivery , Previous surgery to cervix -(D&C). History OB History ? 2. Para 1 ? A7C1C7P8 Current Cell free DNA ?Low Risk analysis Maternal Assessment Physical Exam ??Height 157 cm, 5 ft 2 in. Weight 75 kg, 165 lb. Initial weight 64 kg, 140 lb. BMI 30.18 kg/m??. Initial ? BMI 25.61 kg/m??. Weight gain 11 kg, 25 lb Method Transabdominal and transvaginal ultrasound examination. View: Suboptimal view: limited by position. Medical Sexer Sexer declined Hsieh . Number of fetuses: 1 [...] (oz) ? 15 oz EFW by: ?Hadlock (MKY-KV-PR-FL) Extended Tibia ??44.3 mm 27w 2d 10% Gerda Sack Repairer ? 3.2 mm CM ? 6.6 mm [...] Heart / Thorax RVOT view. LVOT view. 5-qmcivo-glnvviw view. Bicaval view. Ductal arch view. Extremities [...] the patient as necessary. Procedure Note Madhuri Clements MD - 09/10/2025 NAME: JAYY REYNAGA : 1995 SEX: F Accession Number: [id number] ORDERING PHYSICIAN: MADHURI CLEMENTS REFERRING PHYSICIAN: JONY MEJÍA Coding Procedures 49286: Ultrasound, uterus, real time with image documentation, and maternal evaluation plus detailed anatomic examination, transabdominalapproach;single or first gestation 19713: Ultrasound, uterus, real time with imagedocumentation, transvaginal Indication Screening for Anatomic Survey , Screening for cervical length ,Gestational diabetes, Chronic hypertension affecting , History of prior with pre-eclampsia , History of prior pregnancywith delivery , Previous surgery to cervix -(D&C). History OB History 2. Para 1 [id number] Current Cell free DNA Low Risk analysis Maternal Assessment Physical Exam Height 157 cm, 5 ft 2 in. Weight 75 kg, 165 lb. Initialweight 64 kg, 140 lb. BMI 30.18 kg/m??. Initial BMI 25.61 kg/m??. Weight gain 11 kg, 25 lb Method Transabdominal and transvaginal ultrasound examination. View: Suboptimalview: limited by position. Medical Sexer Sexer declined Hsieh . Number of fetuses: 1 [...] by U/S 29 w + 4 d WIE by U/S: 11/22/2025 Assigned: based on the [...] EFW (oz) 15 oz EFW by: Hadlock (HCE-NR-DM-FL) Extended Tibia 44.3 mm 27w 2d 10% Gerda Sack Repairer 3.2 mm CM 6.6 mm 44% Nicolaides [...] Heart / Thorax RVOT view. LVOT view. 6-jmgauh-dqodifs view. Bicaval view.Ductal arch view. Extremities / [...] thepatient as necessary. Authorizing ProviderResult TypeResult StatusMadhuri Clements MDIMG ORDERABLESFinal Result * 2nd hr Glucose Tolerance 100 gm load (08/15/2025)ComponentValueRef RangeTest MethodAnalysis TimePerformed AtPathologist SignatureGlucose Tolerance Test 2 Euel261DRRCXPPN TRANSCRIBED RESULTSSpecimen (Source)Anatomical Location / LateralityCollection Method / VolumeCollection TimeReceived TimeBloodVenous blood / Unknown Narrative Authorizing ProviderResult TypeResult StatusNot In System Ref ProvLAB BLOOD ORDERABLESFinal ResultPerforming OrganizationAddressCity/State/ZIP CodePhone Number MANUALLY TRANSCRIBED RESULTS * Glucose tolerance, 1 hour (08/15/2025)ComponentValueRef RangeTest Method Analysis TimePerformed AtPathologist SignatureGlucose Tolerance Test 1 Stui627 MANUALLY TRANSCRIBED RESULTSSpecimen (Source)Anatomical Location / Laterality Collection Method / VolumeCollection TimeReceived TimeBloodVenous blood / Unknown Narrative Authorizing ProviderResult TypeResult StatusNot In System Ref ProvLAB BLOOD ORDERABLESFinal ResultPerforming OrganizationAddressCity/State/ZIP CodePhone Number MANUALLY TRANSCRIBED RESULTS * Glucose tolerance, 3 hours (08/15/2025)ComponentValueRef RangeTest Method Analysis TimePerformed AtPathologist SignatureGlucose Tolerance Test 3 Qbji875 MANUALLY TRANSCRIBED RESULTSSpecimen (Source)Anatomical Location / Laterality Collection Method / VolumeCollection TimeReceived TimeBloodVenous blood / Unknown Narrative Authorizing ProviderResult TypeResult StatusNot In System Ref ProvLAB BLOOD ORDERABLESFinal ResultPerforming OrganizationAddressCity/State/ZIP CodePhone Number MANUALLY TRANSCRIBED RESULTS * Glucose, tolerance fasting (08/15/2025)ComponentValueRef RangeTest Method Analysis TimePerformed AtPathologist SignatureGlucose Tolerance Test Bqgixpe08 MANUALLY TRANSCRIBED RESULTSSpecimen (Source)Anatomical Location / Laterality [...] TimePerformed AtPathologist SignatureGlucose, 1 hr PP 50GM tmfx199 MANUALLY TRANSCRIBED RESULTSSpecimen (Source)Anatomical Location / Laterality [...] Date Cruz Rodríguez MD [address] [place] [address] PCP - GeneralFamily Medicine12/02/18
--- NOTE | 2025-10-03 10:49 | US_ITS ---
[address] [address] Patient Name: JUHI HOPE MRN: [id number] date: 1995 Sex: F Assigned Patient Location: Current Patient Location: Accession/Order Number: [id number] Exam Date: 10/03/2025 10:53 Report Date: 10/03/2025 11:36 At the request of: MARBELLA HUNTER Procedure: US OB BPP w non-stress US OB BPP w non-stress 10/03/2025 11:17 AM SIGNS AND SYMPTOMS: ^11/28/2025 ^GESTATIONAL DIABETES MELLITUS O24.419 PROTOCOL: Transabdominal imaging of the gravid uterus COMPARISON: None FINDINGS: Estimated gestational age: 32 weeks 0 days heart rate: 131 bpm. Amniotic fluid index: 16.23 cm the deepest vertical pocket measuring 5.79 cm. Biophysical profile: breathing limits: 2/2 Gross body movements: 2/2 tone: 2/2 Amniotic fluid volume: 2/2 US/US OB BPP w non-stress IMPRESSION: Biophysical profile score: 07/03 Impression dictated by: Will Faria M.D. 10/03/2025 11:36 AM Dictation Location: [employer] Electronically authenticated by: [id number] Y Date: 10/03/2025 11:36
== END 2025-10-03 11:14 | disposition home or self-care (01) ==
LOC: US 10:12 → FBC 10:14
PROVIDERS: Family Provider Family Medicine; PCP Family Medicine; Visit Provider Nurse Practitioner Family
DX: O24.419 Gestational diabetes mellitus in pregnancy, unspecified control (principal); Z3A.32 32 weeks gestation of pregnancy
CPT/HCPCS: 76818

== ENCOUNTER 2025-10-07 16:37 | Outpatient (OUT) | payer OTHER, SELFPAY ==
--- OUTSIDE RECORDS SUMMARY | 2025-09-03 14:50 | XMS_ITS | Encounter Summary ---
Author Organization [facility] Address [address] [place] [address] Care Team Providers Care Document Management Consultant Name Role Phone Eliceo Beltran DO Primary Care Provider [phone] CharlottegeovaniEliceo kauffman Unavailable [phone] Reason for Visit * ReasonCommentsRoutine Visit Encounter Details DateTypeDepartmentCare Team (Latest Contact Info)Tlkdxjfmjca73/09/2025 3:50 PM EDTRoutine [facility] [address] [place] [address] Stpeh Keane, DEVYN [address] [place] [address] Hypertension affecting , antepartum ([facility]) (Primary Dx); 27 weeks gestation of ([facility]); Second trimester ([facility]) Social History Tobacco UseTypesPacks/DayYears UsedDateSmoking Tobacco: NeverSmokeless Tobacco: NeverAlcohol UseStandard Drinks/WeekCommentsNever0 (1 standard drink = 0.6 oz pure alcohol)caffeine: 1-2 cups per day, coffee and [id number] Health Literacy AnswerDate RecordedHow often do you [...] relatives?Once a week12/29/2024How often do you attend congregational or synagogue services?Patient kquazhdy62/03/2025Do you belong to any clubs or organizations such as congregational groups, unions, [place] or athletic leodan ups, or school groups?No12/29/2024How often do you attend meetings of the clubs or organizations you belong to?Patient cbrzzomf65/03/2025re you , , , , never , [...] hard at all12/29/2024PHQ-2AnswerDate RecordedPatient Health Questionnaire-2 Score0 07/30/2025[facility] [place] of Occupational Health - Occupational Stress QuestionnaireAnswerDate RecordedDo you feel stress - tense, restless, nervous, or anxious, or unable to sleep at night because yourmind is troubled all the time - these days?Only a gshutm2412/29/2024Exercise Vital SignAnswerDate Recorded On average, how many [...] steady place to sleep or slept in [facility] (including now)?No09/19/2023Housing Stability Vital SignAnswerDate RecordedIn the last 12 months, was there a time when you were not able to pay the mortgage or rent on time?No12/29/2024Number of Times Moved in the Last YearNot on file12/29/2024t any time in the past 12 months, were you homeless or living in a care home (including now)?No12/29/2024 EducationAnswerDate RecordedWhat is the highest level of school you have completed or the highest degree you have received?High school hikdlzgi95/29/2023 Estimated Date of ZnklmhumWytrstivYdd66/03/2026ased on last menstrual period of 02/21/2025Sex and Gender InformationValueDate RecordedSex Assigned at BirthNot on fileLegal AhgDzheuw36/15/2023 7:18 PM EDTGender IdentityNot on file Sexual OrientationNot on 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 sfcixaczhe-tdytzrc-xrknrjfz (Fiorinal) 50-325-40 MG capsule 1 capsule, Oral, [...] San infection Headache History of menstrual cramps ([facility]) Varicella zoster Visual impairment HISTORY PAST MEDICAL [...] History: Procedure Laterality Date APPENDECTOMY 05/2016 at [facility] AND CURETTAGE 12/2022 retained placenta DISTAL [...] nursing note reviewed. Exam conducted with a supervisor soldering present. Vitals: Estimated body mass index is 29.41 kg/m?? as calculated from the following: Height as of 07/30/25: 5' 2 . Weight as of this encounter: 160 lb 12.8 oz. BP: 170/90 Patient's last menstrual period was 02/21/2025. ASSESSMENT & PLAN ICD-10-CM 1. 27 weeks gestation of ([facility]) Z3A.27 POCT urinalysis dipstick manually resulted 2. Second trimester ([facility]) Z34.92 Return OB: Patient presents [...] Plan of Treatment DateTypeDepartmentCare Team (Latest Contact Info)Xdwvtgkodry28/19/2025 3:30 PM ESTRoutine [facility] [address] [address] Nathan Pop DO [address] [place] [address] documented as of this encounter Procedures Procedure NamePriorityDate/TimeAssociated DiagnosisCommentsPOCT URINALYSIS WGQNGCTPQgvpwav40/09/2025 4:26 PM EDT 27 weeks gestation of ([facility]) documented in this encounter Results [...] Visit Diagnoses Diagnosis Hypertension affecting , antepartum ([facility])- Primary 27 weeks gestation of ([facility]) Second trimester ([facility]) state, incidental documented in this encounter Care Teams Team MemberRelationshipSpecialtyStart DateEnd Date Eliceo Beltran DO [address] [place] [address] PCP - GeneralFamily Medicine02/14/24 Eliceo Beltran DO [address] [place] [address] PCP - Medical [place] [employer]07/27/2412documented as of this encounter
--- OUTSIDE RECORDS SUMMARY | 2025-09-16 14:20 | XMS_ITS | Encounter Summary ---
Author Organization [facility] Address [address] [place] [address] Care Team Providers Care Nail Artist Name Role Phone CharlotteEliceo medina Primary Care Provider CharlottecarolEliceo Bryant DAY Unavailable [phone] Encounter Details DateTypeDepartmentCare Team (Latest Contact Info)Xlosdpnuozj89/22/2025 3:20 PM EDTRoutine [facility] [address] [phone] Nathan Pop DO [address] [place], [id number] 29 weeks gestation of ([facility]); Third trimester ([facility]); Hypertension affecting , antepartum ([facility]); Gestational diabetes mellitus (GDM), antepartum, gestational diabetes method of control unspecified([facility]) Social History Tobacco UseTypesPacks/DayYears UsedDateSmoking Tobacco: NeverSmokeless Tobacco: NeverAlcohol UseStandard Drinks/WeekCommentsNever0 (1 standard drink = 0.6 oz pure alcohol)caffeine: 1-2 cups per day, coffee and [id number] Health Literacy AnswerDate RecordedHow often do you [...] relatives?Once a week12/29/2024How often do you attend faith or denominational services?Patient obxhdebx27/03/2025Do you belong to any clubs or organizations such as faith groups, unions, fraHipui or athletic leodan ups, or school groups?No12/29/2024How often do you attend meetings of the clubs or organizations you belong to?Patient /03/2025re you , , , , never , [...] hard at all12/29/2024PHQ-2AnswerDate RecordedPatient Health Questionnaire-2 Score0 07/30/2025[facility] [place] [facility] - Occupational Stress QuestionnaireAnswerDate RecordedDo you feel stress - tense, restless, nervous, or anxious, or unable to sleep at night because yourmind is troubled all the time - these days?Only a bchbir0812/29/2024Exercise Vital SignAnswerDate Recorded On average, how many [...] steady place to sleep or slept in [facility] (including now)?No09/19/2023Housing Stability Vital SignAnswerDate RecordedIn the last 12 months, was there a time when you were not able to pay the mortgage or rent on time?No12/29/2024Number of Times Moved in the Last YearNot on file12/29/2024t any time in the past 12 months, were you homeless or living in a halfway (including now)?No12/29/2024 EducationAnswerDate RecordedWhat is the highest level of school you have completed or the highest degree you have received?High school jqjcofll85/29/2023 Estimated Date of KfrdpgnsQdeyhdfoTce72/03/2026ased on last menstrual period of 02/21/2025Sex and Gender InformationValueDate RecordedSex Assigned at BirthNot on fileLegal SnrNzjvma24/15/2023 7:18 PM EDTGender IdentityNot on file Sexual OrientationNot on 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 female who presents for No chief complaint on file. Patient presents today for Return OB appointment. [...] meal for a total of 4times daily. insulin glargine-yfgn (SEMGLEE-YFGN) 13 Units, Nightly labetalol (NORMODYNE) 200 mg, Oral, 2 times daily Lancets Ultra [...] d/t oral contraceptive pills John San infection GDM (gestational diabetes mellitus) ([facility]) Headache History of menstrual cramps ([facility]) Varicella zoster Visual impairment HISTORY PAST MEDICAL HISTORY SOCIAL HISTORY Past Medical History: Diagnosis Date Amenorrhea d/t oral contraceptive pills Endometriosis John San infection GDM (gestational diabetes mellitus) ([facility]) Headache History of menstrual cramps severe Hypertension ([facility]) x1 Varicella zoster unsure Visual impairment w/ [...] History: Procedure Laterality Date [place]CT[place] [facility] 12/20[place] retained [...] nursing note reviewed. Exam conducted with a pole peeling machine operator helper present. Vitals: Estimated body mass index is 29.78 kg/m?? as calculated from the following: Height as of 07/30/25: 5' 2 . Weight as of this encounter: 162 lb 12.8 oz. BP: 120/80 Patient's last menstrual period was 02/21/2025. Assessment/Plan ICD-10-CM 1. 29 weeks gestation of ([facility]) Z3A.29 POCT urinalysis dipstick manually resulted 2. Third trimester ([facility]) Z34.93 POCT urinalysis dipstick manually resulted 3. Hypertension affecting , antepartum ([facility]) O16.9 4. Gestational diabetes mellitus (GDM), antepartum, gestational diabetes method of control unspecified ([facility]) O24.419 Return OB: Patient presents today for a routine obstetrics appointment. Patient is currently 29w4d . Patient states she is doing well but has complaints of being tired due to current . Patient has verbalizes frequent movement. labor precautions was discussed/given and patient was instructed to perform kick counts three times a day. Lantus at 30 units and continues to report glucose log to [facility]. Follow up Ultrasound in 4 weeks. Orders Placed This Encounter Procedures POCT urinalysis dipstick manually resulted Follow Up: Patient is to return to office in 2 week for routine OB appointment. Documented by Steph Keane NP on behalf of: Nathan Pop DO documented in this encounter Plan of Treatment DateTypeDepartmentCare Team (Latest Contact Info)Kcsqigrgzbt50/19/2025 3:30 PM ESTRoutine [facility] [address] [phone] Nathan Pop DO [address] [place], [place] [id number] NameTypePriorityAssociated DiagnosesOrder ScheduleUS OB follow up transabdominal approachImagingRoutine Gestational diabetes mellitus (GDM), antepartum, gestational diabetes method of control unspecified([facility]) every 4 weeks for 2 Occurrences starting 09/16/2025 until 12/17/2025US biophysical profile w non stress testImagingRoutine Gestational diabetes mellitus (GDM), antepartum, gestational diabetes method of control unspecified([facility]) Expected: 09/16/2025, Expires: 09/16/2026documented as of this encounter Procedures Procedure NamePriorityDate/TimeAssociated DiagnosisCommentsPOCT URINALYSIS CAVEPCTKHlfmtnu79/22/2025 4:09 PM EDT 29 weeks gestation of ([facility]) Third trimester ([facility]) documented in this encounter Results * POCT urinalysis dipstick manually resulted (09/16/2025 4:09 PM EDT)Component ValueRef RangeTest MethodAnalysis TimePerformed AtPathologist SignatureColor, UAYellowClarity, UAClearGlucose, UANegativeNegative - 2000(110) ++++ mg/dL Bilirubin, UANegativeNegative - 4(70) +++ mg/dLKetones, UANegativeNegative - 160(16) ++++ mg/dLSpec Grav, UA1.0101 - 1.03Blood, UANegativeNegative - 50 Teodoro/mcLpH, UA6.05 - 9Protein, UANegativeNegative - 2000(20) ++++ mg/dL Urobilinogen, UA1.00.2 - 12 mg/dLLeukocytes, UANegativeNegative - 500+++ Robinson/mcLNitrite, UANegativeNegative - PositiveSpecimen (Source)Anatomical Location / LateralityCollection Method / VolumeCollection TimeReceived Time Urine09/16/2025 4:09 PM EDT Narrative Authorizing ProviderResult TypeResult StatusCorey Kiesha DOPOINT OF CARE TEST ENTER/EDIT ORDERABLESFinal Result documented in this encounter Visit Diagnoses Diagnosis 29 weeks gestation of ([facility]) Third trimester ([facility]) state, incidental Hypertension affecting , antepartum ([facility]) Gestational diabetes mellitus (GDM), antepartum, gestational diabetes method of control unspecified([facility]) documented in this encounter Care Teams Team MemberRelationshipSpecialtyStart DateEnd Date Eliceo Beltran DO [address] [place] [address] PCP - GeneralFamily Medicine02/14/24 Eliceo Beltran DO [address] [place] [address] PCP - Medical Lorraine Commercial07/27/2412documented as of this encounter
--- OUTSIDE RECORDS SUMMARY | 2025-09-30 15:00 | XMS_ITS | Encounter Summary ---
Author Organization [facility] Address [address] [place] [address] Care Team Providers Care Design Technology Teacher Name Role Phone CharlotteEliceo medina Primary Care Provider Charlottecarol Eliceo Hurtado DO Unavailable [phone] Reason for Visit * ReasonCommentsRoutine Visit Encounter Details DateTypeDepartmentCare Team (Latest Contact Info)Qomfntpibpm81/05/2025 3:00 PM ESTRoutine [facility] [address] [place] [phone] Nathan Pop DO [address] [place], [place] [id number] Third trimester ([facility]); 31 weeks gestation of ([facility]); Pre-eclampsia in third trimester ([facility]) Social History Tobacco UseTypesPacks/DayYears UsedDateSmoking Tobacco: NeverSmokeless Tobacco: NeverAlcohol UseStandard Drinks/WeekCommentsNever0 (1 standard drink = 0.6 oz pure alcohol)caffeine: 1-2 cups per day, coffee and [id number] Health Literacy AnswerDate RecordedHow often do you [...] relatives?Once a week12/29/2024How often do you attend latter day or jainism services?Patient qznirhwj64/03/2025Do you belong to any clubs or organizations such as latter day groups, unions, Salezeo or athletic leodan ups, or school groups?No12/29/2024How often do you attend meetings of the clubs or organizations you belong to?Patient mhigqrhv87/03/2025re you , , , , never , [...] hard at all12/29/2024PHQ-2AnswerDate RecordedPatient Health Questionnaire-2 Score0 07/30/2025[facility] [place] of Occupational Health - Occupational Stress QuestionnaireAnswerDate RecordedDo you feel stress - tense, restless, nervous, or anxious, or unable to sleep at night because yourmind is troubled all the time - these days?Only a tmzoyi5012/29/2024Exercise Vital SignAnswerDate Recorded On average, how many [...] place to sleep or slept in [facility] (including now)?No09/19/2023Housing Stability Vital SignAnswerDate RecordedIn [...] the highest degree you have received?High school puodrayb23/29/2023 Estimated Date of ZexqwttoXbaoftxtSsa56/03/2026ased on last menstrual period of 02/21/2025Sex and Gender InformationValueDate RecordedSex Assigned at BirthNot on fileLegal GwhHxosem22/15/2023 7:18 PM EDTGender IdentityNot on file Sexual OrientationNot on 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 Not on fileNot on fileNot on filedocumented as of this encounter Last Filed Vital Signs Vital SignReadingTime TakenCommentsBlood Alrkimtp406/8211 3:04 PM EST Pulse--Temperature--Respiratory Rate--Oxygen Saturation--Inhaled Oxygen Concentration--Wuvbaz02.3 kg (166 lb)09/30/2025 3:04 PM ESTHeight--Body Mass [...] John San infection GDM (gestational diabetes mellitus) ([facility]) Headache History of menstrual cramps ([facility]) Varicella zoster Visual impairment HISTORY PAST MEDICAL HISTORY SOCIAL HISTORY Past Medical History: Diagnosis Date Amenorrhea d/t oral contraceptive pills Endometriosis John San infection GDM (gestational diabetes mellitus) ([facility]) Headache History of menstrual cramps severe Hypertension ([facility]) x1 Varicella zoster unsure Visual [...] History: Procedure Laterality Date APPENDECTOMY 05/2016 [place] [facility] [place] 12/2022 retained placenta DISTAL [...] nursing note reviewed. Exam conducted with a interactive producer present. Vitals: Estimated body mass index is 30.36 kg/m?? as calculated from the following: Height as of 07/30/25: 5' 2 . Weight as of this encounter: 166 lb. BP: 140/82 Patient's last menstrual period was 02/21/2025. Assessment/Plan ICD-10-CM 1. Third trimester ([facility]) Z34.93 POCT urinalysis dipstick manually resulted 2. 31 weeks gestation of ([facility]) Z3A.31 3. Pre-eclampsia in third trimester ([facility]) O14.93 Return OB: Patient presents today for [...] Plan of Treatment DateTypeDepartmentCare Team (Latest Contact Info)Buurbyvaizl82/19/2025 3:30 PM ESTRoutine [facility] [address] [place] [address] Nathan Pop DO [address] [place] [address] documented as of this encounter Procedures Procedure NamePriorityDate/TimeAssociated DiagnosisCommentsPOCT URINALYSIS GIDOFSNVLjfpwnx68/05/2025 3:13 PM EST Third trimester ([facility]) documented in this encounter Results * [...] gestation of ([facility]) Pre-eclampsia in third trimester ([facility]) documented in this encounter Care Teams Team MemberRelationshipSpecialtyStart DateEnd Date Eliceo Beltran DO [address] [place], [place] [address] PCP - GeneralFamily Medicine02/14/24 Eliceo Beltran DO [address] [address] PCP - Medical [place] [employer]07/27/2412documented as of this encounter
--- OUTSIDE RECORDS SUMMARY | 2025-10-06 14:30 | XMS_ITS | Encounter Summary ---
Author Organization [facility] [employer] [facility] tem Address [id number] [address] [place] [address] Care Team Providers Care Pattern Vault Clerk Name Role Phone Cruz Rodríguez MD Primary Care Provider [phone] Encounter Details DateTypeDepartmentCare Team (Latest Contact Info)Remidsihiqq74/11/2025 2:30 PM ESTTelemedicine Maternal- Medicine at [facility] [address] [place] [phone] Kayleigh Rizzo PALuis Angel [address] [address] Insulin controlled gestational diabetes mellitus (GDM) in [...] or more drinks on one occasion?Never5ChildcareAnswer Date RfgzmkgtEqsreanqtGhlszch21/13/2019EmploymentAnswerDate RecordedEmployment Fputqcb9005/08/2019Hunger ScreeningAnswerDate RecordedWithin the past 12 months we worried whether our food would run out before we got money to buy more.Never True09/10/2025Within the past 12 months the food we bought just didn't last and we didn't have money to get more.Never True09/10/2025Purpose - LifeAnswerDate RecordedPurpose and direction in hezjWpnxsmp74/11/2021Estimated Date of QdvekgrnXmfeqsvoPdx18/03/2026Based on last menstrual period of 02/21/2025 (Exact Date)Sex and Gender InformationValueDate RecordedSex Assigned at BirthNot on fileLegal GbpJdhbyi38/07/2019 2:55 PM ESTGender IdentityNot on fileSexual OrientationNot on filedocumented as of this encounter Progress Notes * Kayleigh Rizzo PA-C - 10/06/2025 2:30 PM EST Maternal- Medicine Consultation VIDEO Patient is present at work, provider present at [facility] HISTORY OF PRESENT ILLNESS: Driss Gama [...] values to us weekly by e-mail to: [email or web address] or by fax to: [phone] Kayleigh Rizzo PA-C Maternal- Medicine Office phone: [phone] Kayleigh Rizzo PA-C 10/06/25 8729 documented in this encounter Plan of Treatment DateTypeDepartmentCare Team (Latest Contact Info)Wctbfqdshvo99/13/2025 8:00 AM ESTAppointment Maternal Medicine [place] [address] [facility] [address] [place] [address] 11/03/2025 2:30 PM ESTOffice Visit Maternal- Medicine at [facility] [address] [place] [address] Kayleigh Rizzo PALuis Angel [address] [address] documented as of this encounter Visit Diagnoses Diagnosis Insulin controlled gestational diabetes mellitus (GDM) in third trimester- Primary Essential hypertension affecting in third trimester documented in this encounter Care Teams Team MemberRelationshipSpecialtyStart DateEnd Date Cruz Rodríguez MD [address] [place] [address] PCP - GeneralFamily Medicine12/02/18documented as of this encounter
--- OUTSIDE RECORDS SUMMARY | 2025-10-07 16:40 | XMS_ITS | Patient Health Record ---
Author Organization [facility] Address [address] [place] [address] Care Team Providers Care Senior Software Qa Engineer Name Role Phone Cruz Rodríguez Primary Care [...] Quad PFS (0.5mL Admin) 18 y/o & uxwipEmaknkr38/30/9161Bwtbsgly4933 Fluzone Quad PFS (0.5mL Admin) 6 months & wymnoAjguifc45/17/6235Lipbjsnz8530 Fluzone, 6mo & older, Quad MDV (0.5mL Admin)Ieqazaf6607/16/20234236Hipmpazk8341 Fluzone, 6mo & older, Quad PFS (0.5mL Admin)Agioccv65/18/2023Contraindications z2023 Fluzone, 6mo & older, Quad PFS (0.5mL Admin)Ahkmrtu29/20/2024Refused Social History Tobacco Use: Social History Observation [...] Status W/U Status Risk Notes Problem Tachycardia (1285687) Tachycardia (R00.0) ActiveconfirmedProblemObesity (058200481)Obesity (BMI 30-39.9) (E66.9)Active confirmed Plan Of Treatment No Information Insurance Providers Payer Name Payer Address Payer Phone Subscriber Number Group Number Insured Name Patient Relationship to Insured Coverage Start Date Coverage End Date [facility] [address] [place] [address] [id number] Driss Woodruff Self - patient is the insured Medical [facility] [address] [place] [phone] [id number], AlexisSelf - patient is the insured Medical (General) History Medical History History ICD Code Tachycardia R00.0 Surgical History Surgery Date(Month/Year) right shoulder surgery endometriosisappendectomyHospitalization History Reason Date(Month/Year) surgeries childbirth
--- OUTSIDE RECORDS SUMMARY | 2025-10-07 16:40 | XMS_ITS | Encounter Summary ---
Author Organization [facility] Address [address] [place] [address] Care Team Providers Care Personal Carer Name Role Phone Eliceo Beltran DO Primary Care Provider [phone] CharlottecarolEliceo Unavailable [phone] Encounter Details DateTypeDepartmentCare Team (Latest Contact Info)Xoqitvetdjj99/05/2025amboo flowsheet [facility] [place] [facility] [address] [phone] Nathan Pop DO [address] [place], [place] [address] Social History Tobacco UseTypesPacks/DayYears UsedDateSmoking Tobacco: NeverSmokeless Tobacco: NeverAlcohol UseStandard Drinks/WeekCommentsNever0 (1 standard drink = 0.6 oz pure alcohol)caffeine: 1-2 cups per day, coffee and oapY4336 Health Literacy AnswerDate RecordedHow often do you [...] week12/29/2024How often do you attend denominational or catholic services?Patient zevwvisu84/03/2025Do you belong to any clubs or organizations such as denominational groups, unions, Celtro or athletic leodan ups, or school groups?No12/29/2024How [...] hard at all12/29/2024PHQ-2AnswerDate RecordedPatient Health Questionnaire-2 Score0 07/30/2025[facility] - Occupational Stress QuestionnaireAnswerDate RecordedDo you feel stress - tense, restless, nervous, or anxious, or unable to sleep at night because yourmind is troubled all the time - these days?Only a jfuyhl3612/29/2024Exercise Vital SignAnswerDate Recorded On average, how many [...] the highest degree you have received?High school drulxfon53/29/2023 Estimated Date of QjzfncevOrxtepzfEnx46/03/2026ased on last menstrual period of 02/21/2025Sex and Gender InformationValueDate RecordedSex Assigned at BirthNot on fileLegal FntJhqmpu82/15/2023 7:18 PM EDTGender IdentityNot on file Sexual OrientationNot on 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 Not on fileNot on fileNot on filedocumented as of this encounter Plan of Treatment DateTypeDepartmentCare Team (Latest Contact Info)Jyzzqfwrwki88/19/2025 3:30 PM ESTRoutine [facility] Patti MOODY [address] [address] Nathan Pop DO [address] [place] [address] documented as of this encounter Visit Diagnoses Not on filedocumented in this encounter Care Teams Team MemberRelationshipSpecialtyStart DateEnd Date Eliceo Beltran DO [address] [address] PCP - GeneralFamily Medicine02/14/24 Eliceo Beltran DO [address] [place] [address] PCP - Medical Curtis [employer]07/27/2412documented as of this encounter
--- OUTSIDE RECORDS SUMMARY | 2025-10-07 16:40 | XMS_ITS | Encounter Summary ---
Author Organization [facility] tem Address [id number] [address] [place] [address] Care Team Providers Care Trainmaster Name Role Phone Cruz Rodríguez MD Primary Care Provider Encounter Details DateTypeDepartmentCare Team (Latest Contact Info)Joltoddugle56/11/2025Travel Social History Tobacco UseTypesPacks/DayYears UsedDateSmoking Tobacco: NeverSmokeless Tobacco: NeverAlcohol UseStandard Drinks/WeekCommentsNo0 (1 standard drink = 0.6 oz pure alcohol)AUDIT-CAnswerDate RecordedQ1: How often do you have a drink containing alcohol?Never09/10/2025Q2: How many drinks containing alcohol do you have on a typical day when you are drinking?Patient does not drink09/10/2025Q3: How often do you have six or more drinks on one occasion?Never09/10/2025hildcareAnswer Date FmnnrepmVmiyfbpkaMdcjnlb09/13/2019EmploymentAnswerDate RecordedEmployment Wueezbp2905/08/2019Hunger ScreeningAnswerDate RecordedWithin the past 12 months we worried whether our food would run out before we got money to buy more.Never True09/10/2025Within the past 12 months the food we bought just didn't last and we didn't have money to get more.Never True09/10/2025Purpose - LifeAnswerDate RecordedPurpose and direction in vjtuSoebftj88/11/2021Estimated Date of RviahjydGzjhlwhqNnh63/03/2026Based on last menstrual period of 02/21/2025 (Exact Date)Sex and Gender InformationValueDate RecordedSex Assigned at BirthNot on fileLegal EdnZexawy32/07/2019 2:55 PM ESTGender IdentityNot on fileSexual OrientationNot on filedocumented as of this encounter Plan of Treatment DateTypeDepartmentCare Team (Latest Contact Info)Ffaquyxjkgu78/13/2025 8:00 AM ESTAppointment Maternal Medicine [place] [address] [facility] [address] [place] [address] 11/03/2025 2:30 PM ESTOffice Visit Maternal- Medicine at [facility] [address] [place] [phone] Kayleigh Rizzo, PAAlbinC [address] [facility] [address] [place] [address] documented as of this encounter Visit Diagnoses Not on filedocumented in this encounter Care Teams Team MemberRelationshipSpecialtyStart DateEnd Date Cruz Rodríguez MD [address] [place] [address] PCP - GeneralFamily Medicine12/02/18documented as of this encounter
--- OUTSIDE RECORDS SUMMARY | 2025-10-07 16:40 | XMS_ITS | Encounter Summary ---
Author Organization [facility] Address [address] [place] [address] Care Team Providers Care Human Resource Adviser Name Role Phone Cruz Rodríguez MD Unavailable + [phone] Cruz Rodríguez MD Primary Care Provider + [phone] Cruz Rodríguez MD Unavailable + 54 [place] FASHION BUYER Unavailable Trista Thao FASHION BUYER Unavailable [phone] Eliceo Beltran DO Primary Care Provider [phone] Eliceo Beltran DO Unavailable [phone] Encounter Details DateTypeDepartmentCare Team (Latest Contact Info)Imlqflcwple11/20/2024linisync Result Encounter [facility] External Department Unsolicited Jony Pop, DO [address] [place] [address] Social History Tobacco UseTypesPacks/DayYears UsedDateSmoking Tobacco: NeverSmokeless Tobacco: NeverAlcohol UseStandard Drinks/WeekCommentsNever0 (1 standard drink = 0.6 oz pure alcohol)caffeine: 1-2 cups per day, coffee and [id number] Health Literacy AnswerDate RecordedHow often do you [...] week12/29/2024How often do you attend scientology or yazidi services?Patient dyoazkhq94/03/2025Do you belong to any clubs or organizations such as scientology groups, unions, [employer] or athletic [employer] ups, or school groups?No12/29/2024How often do you attend meetings of the clubs or organizations you belong to?Patient rxcnyzpn38/03/2025re you , , , , never , [...] hard at all12/29/2024PHQ-2AnswerDate RecordedPatient Health Questionnaire-2 Score0 07/30/2025[facility] [place] of Occupational Health - Occupational Stress QuestionnaireAnswerDate RecordedDo you feel stress - tense, restless, nervous, or anxious, or unable to sleep at night because yourmind is troubled all the time - these days?Only a graovx3212/29/2024Exercise Vital SignAnswerDate Recorded On average, how many [...] place to sleep or slept in [facility] (including now)?No09/19/2023Housing Stability Vital SignAnswerDate RecordedIn [...] the highest degree you have received?High school mfofedxu99/29/2023 CommentsUnknownSex and Gender InformationValueDate RecordedSex Assigned at BirthNot on fileLegal TkxQzjfau00/15/2023 7:18 PM EDTGender IdentityNot on fileSexual OrientationNot on 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 End Date CashierNot on fileNot on fileNot on filedocumented as of this encounter Functional Status * AUDIT-C ScoreAnswerDate of OwcrodlcmtOkihxc153/03/2025 10:25 PM ESTChristine, Generic * Q1: How [...] or more drinks on one occasion?AnswerDate of KzlfctdwohMnosphYptgw75/03/2025 10:25 PM Chip, Generic * Over the past 2 weeks, how often have you been bothered by any of the following problems?QuestionAnswerDate of AssessmentAuthorLittle interest or pleasure in doing thingsNot at all07/30/2025 3:36 PM Bill Locke LPNFeeling down, depressed, or hopelessNot at all07/30/2025 3:36 PM EDT Bill Gould LPNPatient Health Questionnaire-2 Bmqzt767 3:36 PM Bill Locke LPN documented as of this encounter Plan of Treatment DateTypeDepartmentCare Team (Latest Contact Info)Wwnpszlfayi46/19/2025 3:30 PM ESTRoutine [facility] [place] [facility] [address] [place] [place] [phone] Jony Pop DO [address] [facility] [place] [address] documented as of this encounter Procedures Procedure NamePriorityDate/TimeAssociated DiagnosisCommentsUS PELVIS W/ TTANKTIMKHWZ10/20/2024 11:42 AM EST documented in this encounter Results * US PELVIS W/ TRANSVAGINAL (01/15/2024 11:42 AM EST)Anatomical RegionLaterality ModalityOtherSpecimen (Source)Anatomical Location / LateralityCollection Method / VolumeCollection TimeReceived Time01/15/2024 11:42 AM EST Narrative 01/15/2024 11:44 AM EST [facility] ?[address] ? [place], [facility] ? Ultrasound Report ? Signed ? Patient: ANATOLIY,DRISS M ?MR#: [id number] ?? : 1995 ?Acct:[id number] ?? Age/Sex: 28 / F ?ADM Date: 01/15/24 ?? Loc: [facility] ? Attending Dr: Jony Pop D.O. ? Ordering Physician: Jony Pop D.O. ?? Date of Service: 01/15/24 ?? Procedure(s): US pelvis w/ transvaginal ?? Accession Number(s): [id number] ? cc: Jony Pop D.O.; Physician,Non-Staff M.D. ? [facility] ? [address] [facility] ? [place] [address] ? Patient Name: ?? DRISS COPE ? MRN: [facility]:[id number] ? date: 1995 ?Sex: F ?? Assigned Patient Location: [facility] ?? Current Patient Location: [facility] ?? Accession/Order Number: [id number] ?? Exam Date: 01/15/2024 ??07:57 ?Report Date: [...] 1144 ? DD/ 1142 ? TD/TT: ? Binder Cutter Hand: Procedure Note Radiology, Radiologist, MD - 01/15/2024 [place] [address] Ultrasound Report Signed Patient: DRISS COPE MMR#: [id number] : 1995Acct:[id number] Age/Sex: 28 / FADM Date: 01/15/24 Loc: [facility] Attending Dr: Jony Pop D.O. Ordering Physician: Jony Pop D.O. Date of Service: 01/15/24 Procedure(s): US pelvis w/ transvaginal Accession Number(s): [id number] cc: Jony Pop D.O.; Physician,Non-Staff M.Mark Anthony The [address] [address] Patient Name: DRISS COPE MRN: [id number] date: 1995 Sex: F Assigned Patient Location: [facility] Current Patient Location: [facility] Accession/Order Number: [id number] Exam Date: 01/15/2024 07:57 Report Date: 01/15/2024 [...] M.D. Signed By:01/15/24 1144 DD/ 1142 TD/TT: Binder Cutter Hand: Authorizing ProviderResult TypeResult StatusCorey Kiesha DOCLINISYNC IMAGINGFinal Result documented in this encounter Visit Diagnoses Not on filedocumented in this encounter Care Teams Team MemberRelationshipSpecialtyStart DateEnd Date Cruz Rodríguez MD [address] [place] [address] PCP - [facility]09/26/2112 Cruz Rodríguez MD [address] [place] [address] PCP - [facility] Cruz Rodríguez MD [address] [place] [address] PCP - [facility] Eliceo Beltran DO [address] [place] [address] PCP - GeneralFamily Medicine02/14/24 Eliceo Beltran DO [address] [place] [address] PCP - Medical [place] [employer]07/27/2412 [place] NP [address] [place] [address] Nurse PractitionerFamily Yavfjviq77/10/235 Trista Thao NP [address] [place] [address] Nurse PractitionerPulmonary Biwqvgw95/10/235documented as of this encounter
--- OUTSIDE RECORDS SUMMARY | 2025-10-07 16:40 | XMS_ITS | Encounter Summary ---
Author Organization [facility] Address [address] [place] [address] Care Team Providers Care Certified Wellness Program Manager Name Role Phone RubyEliceo Bryant DAY Primary Care Provider [phone] Ruby Eliceo Hurtado DO Unavailable [phone] Encounter Details DateTypeDepartmentCare Team (Latest Contact Info)Cnpdabyaphn96/29/2025Travel Social History Tobacco UseTypesPacks/DayYears UsedDateSmoking Tobacco: NeverSmokeless Tobacco: NeverAlcohol UseStandard Drinks/WeekCommentsNever0 (1 standard drink = 0.6 oz pure alcohol)caffeine: 1-2 cups per day, coffee and [id number] Health Literacy AnswerDate RecordedHow often do you [...] week12/29/2024How often do you attend mormonism or mormon services?Patient ivhoqwzq72/03/2025Do you belong to any clubs or organizations such as mormonism groups, unions, fraternal or athletic leodan ups, or school groups?No12/29/2024How often do you attend meetings of the clubs or organizations you belong to?Patient sdcndcti78/03/2025re you , , , , never , [...] Health Questionnaire-2 Score0 07/30/2025[facility] [place] of Occupational Health - Occupational Stress QuestionnaireAnswerDate RecordedDo you feel stress - tense, restless, nervous, or anxious, or unable to sleep at night because yourmind is troubled all the time - these days?Only a kcotxm6212/29/2024Exercise Vital SignAnswerDate Recorded On average, how many [...] place to sleep or slept in [place] [facility] (including now)?No09/19/2023Housing Stability Vital SignAnswerDate RecordedIn the last 12 months, was there a time when you were not able to pay the mortgage or rent on time?No12/29/2024Number of Times Moved in the Last YearNot on file12/29/2024t any time in the past 12 months, were you homeless or living in a assisted (including now)?No12/29/2024 EducationAnswerDate RecordedWhat is the highest level of school you have completed or the highest degree you have received?High school zkxcacdp88/29/2023 Estimated Date of HgejpwthOqwlwlkfEaz47/03/2026ased on last menstrual period of 02/21/2025Sex and Gender InformationValueDate RecordedSex Assigned at BirthNot on fileLegal UgkBugfbf08/15/2023 7:18 PM EDTGender IdentityNot on file Sexual OrientationNot on 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 Not on fileNot on fileNot on filedocumented as of this encounter Plan of Treatment DateTypeDepartmentCare Team (Latest Contact Info)Ynltuxtoolj89/19/2025 3:30 PM ESTRoutine [facility] [place] [facility] [address] [place] [address] Nathan Pop, DO [address] [place] [address] [place] [address] documented as of this encounter Visit Diagnoses Not on filedocumented in this encounter Care Teams Team MemberRelationshipSpecialtyStart DateEnd Date Eliceo Beltran DO [address] [place] [address] PCP - GeneralFamily Medicine02/14/24 Eliceo Beltran DO [address] [place] [address] PCP - Medical [place] [employer]07/27/2412documented as of this encounter
--- OUTSIDE RECORDS SUMMARY | 2025-10-07 16:40 | XMS_ITS | Encounter Summary ---
Author Organization [facility] tem Address [id number] [address] [place] [address] Care Team Providers Care International Sales Representative Name Role Phone Cruz Rodríguez MD Primary Care Provider [phone] Encounter Details DateTypeDepartmentCare Team (Latest Contact Info)Vqfpwgjjtrx40/10/2025Telephone Maternal- Medicine at [facility] [address] [facility] [place] [phone] Anjana Davalos RN Social History Tobacco UseTypesPacks/DayYears UsedDateSmoking Tobacco: NeverSmokeless Tobacco: NeverAlcohol UseStandard Drinks/WeekCommentsNo0 (1 standard drink = 0.6 oz pure alcohol)AUDIT-CAnswerDate RecordedQ1: How often do you have a drink containing alcohol?Never09/10/2025Q2: How many drinks containing alcohol do you have on a typical day when you are drinking?Patient does not drink09/10/2025Q3: How often do you have six or more drinks on one occasion?Never5ChildcareAnswer Date HaykbeosIkzgvtfddEitrpze41/13/2019EmploymentAnswerDate RecordedEmployment Yewsria6805/08/2019Hunger ScreeningAnswerDate RecordedWithin the past 12 months we worried whether our food would run out before we got money to buy more.Never True09/10/2025Within the past 12 months the food we bought just didn't last and we didn't have money to get more.Never True09/10/2025Purpose - LifeAnswerDate RecordedPurpose and direction in zkcgWeeewpo43/11/2021Estimated Date of RqjwifumCgnumfjtEdy33/03/2026Based on last menstrual period of 02/21/2025 (Exact Date)Sex and Gender InformationValueDate RecordedSex Assigned at BirthNot on fileLegal QczOuuwbn34/07/2019 2:55 PM ESTGender IdentityNot on fileSexual OrientationNot on filedocumented as of this encounter Miscellaneous Notes * Telephone Encounter - Anjana Davalos RN - 10/05/2025 2:39 PM EST Left message for patient to send in blood sugar logs prior to video visit toady in [facility] at 3 PM. Also, Instructed patient to contact [facility] if unable to keep appointment today at [facility], then to call at [phone] option 1 to reschedule. documented in this encounter Plan of Treatment DateTypeDepartmentCare Team (Latest Contact Info)Phrnubjolhc17/13/2025 8:00 AM ESTAppointment Maternal Medicine [place] [address] [facility] [address] [place] [address] 11/03/2025 2:30 PM ESTOffice Visit Maternal- Medicine at [facility] [address] [place] [address] Kayleigh Rizzo PA-C [address] [address] documented as of this encounter Visit Diagnoses Diagnosis Insulin controlled gestational diabetes mellitus (GDM) in second trimester documented in this encounter Care Teams Team MemberRelationshipSpecialtyStart DateEnd Date Cruz Rodríguez MD [address] [place] [address] PCP - GeneralFamily Medicine12/02/18documented as of this encounter
--- OUTSIDE RECORDS SUMMARY | 2025-10-07 16:40 | XMS_ITS | Encounter Summary ---
Author Organization [facility] tem Address [id number] [address] [place] [address] Care Team Providers Care Dishwasher Preparer Name Role Phone Cruz Rodríguez MD Primary Care Provider [phone] Encounter Details DateTypeDepartmentCare Team (Latest Contact Info)Ccxrhwiymit42/03/2025Telephone Maternal- Medicine at [facility] [address] [facility] [place] [address] Cha Harris, DIALLO Social History Tobacco UseTypesPacks/DayYears [...] or more drinks on one occasion?Never5ChildcareAnswer Date UpyxfnaqPtobisqedLilxzjt68/13/2019EmploymentAnswerDate RecordedEmployment Sburbgq4805/08/2019Hunger ScreeningAnswerDate RecordedWithin the past 12 months we worried whether our food would run out before we got money to buy more.Never True09/10/2025Within the past 12 months the food we bought just didn't last and we didn't have money to get more.Never True09/10/2025Purpose - LifeAnswerDate RecordedPurpose and direction in qpqdMeoptab81/11/2021Estimated Date of YguetsffPkhoknliZrc87/03/2026Based on last menstrual period of 02/21/2025 (Exact Date)Sex and Gender InformationValueDate RecordedSex Assigned at BirthNot on fileLegal WwpWwtwdg95/07/2019 2:55 PM ESTGender IdentityNot on fileSexual OrientationNot [...] Plan of Treatment DateTypeDepartmentCare Team (Latest Contact Info)Xnpsxjlcgpk88/13/2025 8:00 AM ESTAppointment Maternal Medicine [place] [address] [facility] [address] [place] [address] 11/03/2025 2:30 PM ESTOffice Visit Maternal- Medicine at [facility] [address] [place] [address] Kayleigh Rizzo PA-C [address] [address] documented as of this encounter Visit Diagnoses Diagnosis Insulin controlled gestational diabetes mellitus (GDM) in second trimester documented in this encounter Care Teams Team MemberRelationshipSpecialtyStart DateEnd Date Cruz Rodríguez MD [address] [place] [address] PCP - GeneralFamily Medicine1/7/19documented as of this encounter
--- OUTSIDE RECORDS SUMMARY | 2025-10-07 16:40 | XMS_ITS | Encounter Summary ---
Author Organization [facility] Address [address] [place] [address] Care Team Providers Care Swimming Pool Cleaner Name Role Phone Eliceo Beltran DO Primary Care Provider [phone] CharlottegeovaniEliceo kauffman Unavailable [phone] Encounter Details DateTypeDepartmentCare Team (Latest Contact Info)Qxudvsuprpr18/01/2025Clinisync Result Encounter [facility] External Department Unsolicited Steph Keane, DEVYN [address] [facility] [place] [address] Social History Tobacco UseTypesPacks/DayYears UsedDateSmoking Tobacco: NeverSmokeless Tobacco: NeverAlcohol UseStandard Drinks/WeekCommentsNever0 (1 standard drink = 0.6 oz pure alcohol)caffeine: 1-2 cups per day, coffee and gayD5214 Health Literacy AnswerDate RecordedHow often do you [...] relatives?Once a week12/29/2024How often do you attend restoration or zoroastrian services?Patient lrodqzcl95/03/2025Do you belong to any clubs or organizations such as restoration groups, unions, [employer] or athletic leodan ups, or school groups?No12/29/2024How often do you attend meetings of the clubs or organizations you belong to?Patient laahtyet70/03/2025re you , , , , never , [...] hard at all12/29/2024PHQ-2AnswerDate RecordedPatient Health Questionnaire-2 Score0 07/30/2025[facility] [place] of Occupational Health - Occupational Stress QuestionnaireAnswerDate RecordedDo you feel stress - tense, restless, nervous, or anxious, or unable to sleep at night because yourmind is troubled all the time - these days?Only a qcnveb2812/29/2024Exercise Vital SignAnswerDate Recorded On average, how many [...] steady place to sleep or slept in [facility] (including now)?No09/19/2023Housing Stability Vital SignAnswerDate RecordedIn the last 12 months, was there a time when you were not able to pay the mortgage or rent on time?No12/29/2024Number of Times Moved in the Last YearNot on file12/29/2024t any time in the past 12 months, were you homeless or living in a long term (including now)?No12/29/2024 EducationAnswerDate RecordedWhat is the highest level of school you have completed or the highest degree you have received?High school jxetybqa05/29/2023 Estimated Date of NlcyrtruFcrqlklzNrr81/03/2026ased on last menstrual period of 02/21/2025Sex and Gender InformationValueDate RecordedSex Assigned at BirthNot on fileLegal ZvqUguoyl44/15/2023 7:18 PM EDTGender IdentityNot on file Sexual OrientationNot on 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 Not on fileNot on fileNot on filedocumented as of this encounter Plan of Treatment DateTypeDepartmentCare Team (Latest Contact Info)Tlzvqudbhmg43/19/2025 3:30 PM ESTRoutine [facility] [place] [facility] [address] [place] [phone] Nathan Pop, DO [address] [facility] [address] [place], [facility] documented as of this encounter Procedures Procedure NamePriorityDate/TimeAssociated DiagnosisCommentsUS OB BPP W NON-SEOSTY3609/26/2025 2:50 PM EDT documented in this encounter Results * US OB BPP W NON-STRESS (09/26/2025 2:50 PM EDT)Anatomical Region LateralityModalityOtherSpecimen (Source)Anatomical Location / Laterality Collection Method / VolumeCollection TimeReceived Time09/26/2025 2:50 PM EDT Narrative 09/26/2025 2:52 PM EDT [facility] ?[address] ? [place] [address] ? Ultrasound Report ? Signed ? Patient: DRISS GAMA ?MR#: [id number] ?? : 1995 ?Acct:[id number] ?? Age/Sex: 30 / F ?ADM Date: 09/26/25 ?? Loc: US ? Attending Dr: Steph Keane ? Ordering Physician: Steph Keane ?? Date of Service: 09/26/25 ?? Procedure(s): US OB BPP w non-stress ?? Accession Number(s): [id number] ? cc: Steph Keane; Yomaira BELTRAN ? [facility] ? [address] ? [place] [address] ? Patient Name: ?? DRISS Daniel GAMA ? MRN: [id number] ? date: 1995 ?Sex: F ?? Assigned Patient Location: [place] ?? Current Patient Location: ? Accession/Order Number: [id number] ?? Exam Date: 09/26/2025 ??11:50 ?Report Date: [...] Dictation Location: RADIO-PC-29 ? Electronically authenticated by: [id number] ??Y ?? Date: 09/26/2025 ??14:50 ? Dictated By: ?Chu Amaya M.D. ? Signed By: ?09/26/25 1452 ? DD/ 1450 ? TD/TT: ? Testing Machine Operator: Procedure Note Radiology, Radiologist, MD - 09/26/2025 [place] [address] Ultrasound Report Signed Patient: DRISS GAMA MMR#: [id number] : 1995Acct:[id number] Age/Sex: 30 / FADM Date: 09/26/25 Loc: US Attending Dr: Steph Keane Ordering Physician: Steph Keane Date of Service: 09/26/25 Procedure(s): US OB BPP w non-stress Accession Number(s): [id number] cc: Steph Keane; Yomaira BELTRAN The [address] [address] Patient Name: DRISS GAMA MRN: [id number] date: 1995 Sex: F Assigned Patient Location: US Current Patient Location: Accession/Order Number: [id number] Exam Date: 09/26/2025 11:50 Report Date: 09/26/2025 14:50 At the request of: STEPH KEANE Procedure: US OB BPP w non-stress Ultrasound biophysical profile INDICATION: -induced hypertension COMPARISON: 09/19/2025 FINDINGS IMPRESSION: Cephalic position. 8 out of 8 score biophysicalprofile. LEONEL 11.6 cm. heart 129 bpm Impression dictated by: Chu Amaya M.D. 09/26/2025 2:50 PM Dictation Location: Oration Electronically authenticated by: [id number] Y Date: 4:50 Dictated By: Chu Amaya M.D. Signed By:09/26/25 1452 DD/ 1450 TD/TT: Testing Machine Operator: Authorizing ProviderResult TypeResult StatusSteph Keane NPCLINISYNC IMAGING Final Result documented in this encounter Visit Diagnoses Not on filedocumented in this encounter Care Teams Team MemberRelationshipSpecialtyStart DateEnd Date Eliceo Beltran DO [address] [place] [address] PCP - GeneralFamily Medicine02/14/24 Eliceo Beltran DO [address] [place] [address] PCP - Medical [place] [employer]/documented as of this encounter
--- OUTSIDE RECORDS SUMMARY | 2025-10-07 16:40 | XMS_ITS | Encounter Summary ---
Author Organization [facility] Address [address] [place] [address] Care Team Providers Care Retail Presentation Specialist Name Role Phone Eliceo Beltran DO Primary Care Provider [phone] CharlottegeovaniEliceo kauffman Unavailable [phone] Encounter Details DateTypeDepartmentCare Team (Latest Contact Info)Xgbivqvszip08/08/2025Clinisync Result Encounter [facility] Unsolicited Steph Keane, DEVYN [address] [facility] [place] [address] Social History Tobacco UseTypesPacks/DayYears UsedDateSmoking Tobacco: NeverSmokeless Tobacco: NeverAlcohol UseStandard Drinks/WeekCommentsNever0 (1 standard drink = 0.6 oz pure alcohol)caffeine: 1-2 cups per day, coffee and [id number] Health Literacy AnswerDate RecordedHow often do you [...] relatives?Once a week12/29/2024How often do you attend adventism or mosque services?Patient azovlkfm53/03/2025Do you belong to any clubs or organizations such as adventism groups, unions, [employer] or athletic leodan ups, or school groups?No12/29/2024How often do you attend meetings of the clubs or organizations you belong to?Patient hxjeihsm22/03/2025re you , , , , never , [...] hard at all12/29/2024PHQ-2AnswerDate RecordedPatient Health Questionnaire-2 Score0 07/30/2025[facility] [place] [facility] - Occupational Stress QuestionnaireAnswerDate RecordedDo you feel stress - tense, restless, nervous, or anxious, or unable to sleep at night because yourmind is troubled all the time - these days?Only a mcbkec5612/29/2024Exercise Vital SignAnswerDate Recorded On average, how many [...] steady place to sleep or slept in [facility] (including now)?No09/19/2023Housing Stability Vital SignAnswerDate RecordedIn the last 12 months, was there a time when you were not able to pay the mortgage or rent on time?No12/29/2024Number of Times Moved in the Last YearNot on file12/29/2024t any time in the past 12 months, were you homeless or living in a senior care (including now)?No12/29/2024 EducationAnswerDate RecordedWhat is the highest level of school you have completed or the highest degree you have received?High school laqewpdf96/29/2023 Estimated Date of QvcthrecNyytjeyiNmm71/03/2026ased on last menstrual period of 02/21/2025Sex and Gender InformationValueDate RecordedSex Assigned at BirthNot on fileLegal EofIyunkp88/15/2023 7:18 PM EDTGender IdentityNot on file Sexual OrientationNot on 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11 documented as of this encounter Procedures Procedure NamePriorityDate/TimeAssociated DiagnosisCommentsUS OB BPP W NON-DPOHOF8110/03/2025 11:36 AM EST documented in this encounter Results * US OB BPP W NON-STRESS (10/03/2025 11:36 AM EST)Anatomical Region LateralityModalityOtherSpecimen (Source)Anatomical Location / Laterality Collection Method / VolumeCollection TimeReceived Time10/03/2025 11:36 AM EST Narrative 10/03/2025 11:[address] [facility] ?[address] ? [place] [address] ? Ultrasound Report ? Signed ? Patient: DRISS GAMA ?MR#: [id number] ?? : 1995 ?Acct:[id number] ?? Age/Sex: 30 / F ?ADM Date: 10/03/25 ?? Loc: US ? Attending Dr: Steph Keane ? Ordering Physician: Steph Keane ?? Date of Service: 10/03/25 ?? Procedure(s): US OB BPP w non-stress ?? Accession Number(s): [id number] ? cc: Steph Keane; Yomaira BELTRAN ? [facility] ? [address] ? [place] [address] ? Patient Name: ?? DRISS Sanchez JAYY ? MRN: [id number] ? date: 1995 ?Sex: F ?? Assigned Patient Location: US ?? Current Patient Location: ? Accession/Order Number: [id number] ?? Exam Date: 10/03/2025 ??10:53 ?Report Date: 10/03/2025 ??11:36 ? At the request of: ?? STEPH ??LAKHWINDER ? Procedure: ??US OB BPP w non-stress ? US OB BPP w non-stress ??10/03/2025 11:17 AM ? SIGNS AND SYMPTOMS: ?? 11/28/2025 ?? GESTATIONAL DIABETES MELLITUS O24.419 ? PROTOCOL: Transabdominal imaging of the gravid uterus ? COMPARISON: None ? FINDINGS: ? Estimated gestational age: 32 weeks 0 days ? heart rate: 131 bpm. ? Amniotic fluid index: 16.23 cm the deepest vertical pocket measuring 5.79 cm. ? Biophysical profile: ? breathing limits: 2/2 ? Gross body movements: 2/2 ? tone: 2/2 ? Amniotic fluid volume: 2/2 ? US/US OB BPP w non-stress ?? IMPRESSION: ? Biophysical profile score: 07/03 ? Impression dictated by: Will Faria M.D. ??10/03/2025 11:36 AM ? Dictation Location: RADIO-PC-17 ? Electronically authenticated by: [id number] ??Y ?? Date: 10/03/2025 ??11:36 ? Dictated By: ?Will Faria M.D. ? Signed By: ?10/03/25 1138 ? DD/ 1136 ? TD/TT: ? Buffing Wheel Operator: Procedure Note Radiology, Radiologist, - 10/03/2025 [place] [address] Ultrasound Report Signed Patient: DRISS GAMA MMR#: [id number] : 1995Acct:[id number] Age/Sex: 30 / FADM Date: 10/03/25 Loc: US Attending Dr: Steph Keane Ordering Physician: Steph Keane Date of Service: 10/03/25 Procedure(s): US OB BPP w non-stress Accession Number(s): [id number] cc: Steph Keane; Yomaira BELTRAN The [address] [address] Patient Name: DRISS GAMA MRN: [id number] date: 1995 Sex: F Assigned Patient Location: US Current Patient Location: Accession/Order Number: [id number] Exam Date: 10/03/2025 10:53 Report Date: 10/03/2025 11:36 At the request of: STEPH KEANE Procedure: US OB BPP w non-stress US OB BPP w non-stress 10/03/2025 11:17 AM SIGNS AND SYMPTOMS: 11/28/2025 GESTATIONAL DIABETES MELLITUS O24.419 PROTOCOL: Transabdominal imaging of the gravid uterus COMPARISON: None FINDINGS: Estimated gestational age: 32 weeks 0 days heart rate: 131 bpm. Amniotic fluid index: 16.23 cm the deepest vertical pocket measuring 5.79cm. Biophysical profile: breathing limits: 2/2 Gross body movements: 2/2 tone: 2/2 Amniotic fluid volume: 2/2 US/US OB BPP w non-stress IMPRESSION: Biophysical profile score: 07/03 Impression dictated by: Will Faria M.D. 10/03/2025 11:36 AM Dictation Location: [facility] Electronically authenticated by: [id number] Y Date: 1:36 Dictated By: Will Faria M.D. Signed By:10/03/25 1138 DD/ 1136 TD/TT: Buffing Wheel Operator: Authorizing ProviderResult TypeResult StatusClintmelissa Lakhwinder NPCLINISYNC IMAGING Final Result documented in this encounter Visit Diagnoses Not on filedocumented in this encounter Care Teams Team MemberRelationshipSpecialtyStart DateEnd Date Eliceo Beltran DO [address] [place] [address] PCP - GeneralFamily Medicine02/14/24 Eliceo Beltran DO [address] [place] [address] PCP - Medical [place] Commercial/documented as of this encounter
--- OUTSIDE RECORDS SUMMARY | 2025-10-07 16:40 | XMS_ITS | Clinical Summary ---
Author Organization [facility] Address [address] [place] [address] Care Team Providers Care Business Improvement Manager Name Role Phone Elicoe Beltran DO Primary Care Provider [phone] Eliceo Beltran DO Unavailable [phone] Allergies No known active allergies Medications MedicationSigDispense QuantityRefillsLast FilledStart DateEnd DateStatus metoprolol succinate XL (Toprol-XL) 25 MG 24 hr tablet Indications:Hypertension, unspecified typeTake 1 tablet by mouth daily 90 tablet 5Active Vit-Fe Fumarate-FA ( Vitamins) 28-0.8 MG tablet Indications:, unspecified gestational age ([facility]),Encounter for supervision of normal first in first trimester ([facility])Take 1 tablet by mouth Daily 30 tablet 110/6Active Alcohol Swabs (Alcohol Prep Pad) 70 % pads Indications:Gestational diabetes mellitus (GDM), antepartum, gestational diabetes method of control unspecified([facility]),Elevated glucose tolerance test Apply 1 Pad topically Daily Use four times daily to check FSBS. 150 each 5Active Blood Glucose Monitoring Suppl (D-Care Glucometer) w/Device kit Indications:Gestational diabetes mellitus (GDM), antepartum, gestational diabetes method of control unspecified([facility]),Elevated glucose tolerance test1 kit Daily Use [...] Inject 13 Units under the skin at gtaiihg51/21/2025Active Lancets Ultra Thin misc Indications:Gestational diabetes mellitus [...] atotal of 4times daily. 150 strip Expired scnnmmyxtc-efcbmyy-zobaqyxa (Fiorinal) 50-325-40 MG capsule Take 1 capsule by mouth every 4 (four) hours if ooqdzx4909/16/2025Discontinued cetirizine (ZyrTEC) 10 MG tablet Take 10 mg by mouth in the morning.09/16/2025Discontinued Ferrous Sulfate (IRON PO) Take 1 tablet by mouth in the morning.09/16/2025Discontinued fluticasone (Flonase) 50 MCG/ACT nasal spray Administer 1 spray into affected nostril(s) in the morning.09/16/2025 Discontinued Active Problems ProblemNoted DateDiagnosed PqqvSkisxnrj17/29/7404Uuziapbrnid15/26/2024Obesity (BMI 30-39.9)02/19/2024cquired equinus deformity of foot03/29/2023isplacement of cervical intervertebral disc without uyqayfvxty77/04/2023ysmenorrhea 03/29/20231856Yenmugmjbkxth80/04/8281Qdegyspscytfn32/04/2407Tborjqkzzost08/04/2023 Assessment & Plan (07/30/2025 4:00 PM EDT): Record Blood Pressures 2-4 times weekly and record. Return with readings at next appointment. Call with readings if sees significant changes Intractable migraine without aura and with status bzakjntxpbl86/04/2023Migraines 03/29/2023hronic pelvic pain in ewdkqi0903/29/2023ain in female genitalia on qoegntenwnc27/04/2023ain on fwvxgauwcm74/04/2023anic wvxeshrt97/04/2023 Patellofemoral disorders, left knee03/29/2023atellofemoral disorders, right knee03/29/2023osterior calcaneal rausyaegp50/04/2023Scapular dyskinesis 03/29/20235958Ujhlwcofg21/04/2023Seasonal allergic rhinitis due to yqmsvr4603/29/2023 Tachycardia, tbquplyniq98/04/2023Tension ihqejlso56/04/2023Vitamin B12 ilqozqeyol36/04/2023Vitamin D kqnyldjcju87/04/2023hronic right shoulder pain 03/29/2023Estimated Date of PfopjrnpPzttjuxjUtr68/03/2026Based on last menstrual period of 02/21/2025 Encounters DateTypeDepartmentCare PcwyQurpqpuieul38/08/2025Clinisync Result Encounter [facility] External Department Unsolicited Steph Keane NP 10/01/2025[place] [address] Nathan Pop DO 09/30/2025 3:00 [place] [address] Nathan Pop, Third trimester ([facility]); 31 weeks gestation of ([facility]); Pre-eclampsia in third trimester ([facility])09/30/2025[place] [address] Nathan Pop DO 5Clinisync Result Encounter NOMS External Department Unsolicited Steph Keane NP 09/23/20259210Qiowxo14/25/2025linisync Result Encounter NOMS External Department Unsolicited Steph Keane NP 09/16/2025 3:20 PM EDTRoutine [facility] [place] [facility] [address] [place] [phone] Nathan Pop, DO 29 weeks gestation of ([facility]); Third trimester ([facility]); Hypertension affecting , antepartum ([facility]); Gestational diabetes mellitus (GDM), antepartum, gestational diabetes method of control unspecified([facility])09/16/2025amboo flowsheet [facility] [place] [facility] [address] [place] [phone] Nathan Pop, DO 09/11/2025bstract [facility] [place] [facility] [address] [place] [address] Nathan Pop, DO 09/09/20254341Ddmnsb94/09/2025 3:50 PM EDTRoutine [facility] [place] [facility] [address] [place] [phone] Steph Keane, DEVYN Hypertension affecting , antepartum ([facility]) (Primary Dx); 27 weeks gestation of ([facility]); Second trimester ([facility])09/03/2025linisync Result Encounter NOMS External Department Unsolicited Nathan Pop, DO 09/03/2025amblaurie flowsheet [facility] [address] [place] [phone] Steph Keane NP 09/02/20250427Lzvner60/04/2025linisync Result Encounter NOMS External Department Unsolicited Steph Keane NP 08/28/2025bstract [facility] [address] [place] [address] Eliceo Beltran DO 08/28/2025Telephone [facility] [address] [place] [address] Radha Rahman MA 08/27/2025 3:20 PM EDTRoutine [facility] [address] [place] [address] Steph Keane, DEVYN 26 weeks gestation of ([facility]); Second trimester ([facility]); induced hypertension, antepartum ([facility]); Gestational diabetes mellitus (GDM) in second trimester, gestational diabetes method of control unspecified ([facility])08/27/2025linisync Result Encounter [facility]OMS External Department Unsolicited Steph Keane, DEVYN 08/27/2025linisync Result Encounter NOMS External Department Unsolicited Steph Keane NP 08/27/2025amboo flowsheet [facility] [place] [facility] [address] [place] [address] Steph Keane NP 08/25/2025linisync Result Encounter NOMS External Department Unsolicited Provider, Generic External Data 08/20/2025bstract [facility] [address] [place] [address] Nathan Pop, 08/20/2025Telephone [facility] [address] [place] [address] Steph Keane, DEVYN 08/17/2025bstract [facility] [address] [place] [phone] Eliceo Beltran, DO 08/17/2025bstract [facility] [address] [place] [phone] Eliceo Beltran, DO 08/17/2025Telephone [facility] [place] [facility] [address] [place] [phone] Nathan Pop, DO 08/12/2025 2:40 PM EDTRoutine [facility] [address] [place] [phone] Nathan Pop, DO 24 weeks gestation of ([facility]); Second trimester ([facility]); Elevated glucose tolerance test08/12/2025 2:00 PM EDTAncillary Procedure [facility] [address] [place] [address] [place] [phone] Encounter for follow-up ultrasound of anatomy ([facility])08/12/2025Telephone [facility] [address] [place] [phone] Bill Gould LPN Gemdkzl4308/12/2025bstract [facility] [address] [place] [address] Eliceo Beltran, DO 08/04/2025Telephone [facility] [address] [place] [address] Bill Gould LPN Hawlkbh8907/30/2025 3:40 PM EDTOffice Visit [facility] [address] [place] [phone] Eliceo Beltran, DO Wellness examination (Primary Dx); Hypertension, unspecified type ; Lipid mgqixjqjh14/04/2025amboo flowsheet [facility] [address] [place] [address] Eliceo Beltran, 07/30/20252194Etbzgp05/26/2025Telephone [facility] [address] [place] [address] [place] [phone] Nathan Pop, DO 07/15/2025 3:30 PM EDTRoutine [facility] [address] [place] [address] Nathan Pop DO 20 weeks gestation of ([facility]); Second trimester ([facility]); Diabetes mellitus iobfeiqrm09/20/2025 2:30 PM EDTAncillary Procedure [facility] [place] [facility] [address] [place] [phone] Screening, , for anatomic survey ([facility])5Clinisync Result Encounter NOMS External Department Unsolicited Nathan Pop DO from Last 3 Months Immunizations ImmunizationAdministration DatesNext DueDTP / HiB08/01/1996,1995, 1995DTaP, Uiinumluvvt22/08/2000,12/29/1997HPV, Ugwfnxosreay01/17/2014, 05/04/2014,2014Hep A, Adult09/11/2014,2014Hep B, Adolescent or Ooyadiwxa63/06/1996,1995,1995IPV05/03/2000Influenza, seasonal, injectable, preservative free09/11/2014MMR05/03/2000,08/01/1996Meningococcal WFP6J3404/03/2007OPV08/01/1996,1995,1995Tdap2014 Family History Medical HistoryRelationNameCommentsAnemiaFatherColon cancerFatherCancerMaternal GrandfatherbutchHypertensionMaternal GrandfatherbutchBreast cancerMaternal GrandmotherHypertensionMotherdarleneColon cancerPaternal GrandfatherRelationName StatusCommentsFatherDeceasedMaternal GrandfatherbutchMaternal GrandmotherMother darleneAlivePaternal GrandfatherPaternal GrandmotherAlive Social History Tobacco UseTypesPacks/DayYears UsedDateSmoking Tobacco: NeverSmokeless Tobacco: Never Tobacco Cessation:Counseling Given: Not Answered Alcohol UseStandard Drinks/WeekCommentsNever0 (1 standard drink = 0.6 oz pure alcohol)caffeine: 1-2 cups per day, coffee and livA3123 Health LiteracyAnswer Date RecordedHow often do you [...] relatives?Once a week12/29/2024How often do you attend quaker or baptist services?Patient oavxezwd11/03/2025Do you belong to any clubs or organizations such as quaker groups, unions, fraternal or athletic leodan ups, or school groups?No12/29/2024How often do you attend meetings of the clubs or organizations you belong to?Patient tzxevzsm44/03/2025re you , , , , never , [...] hard at all12/29/2024PHQ-2AnswerDate RecordedPatient Health Questionnaire-2 Score0 07/30/2025[facility] - Occupational Stress QuestionnaireAnswerDate RecordedDo you feel stress - tense, restless, nervous, or anxious, or unable to sleep at night because yourmind is troubled all the time - these days?Only a lnzmlm8712/29/2024Exercise Vital SignAnswerDate Recorded On average, how many [...] steady place to sleep or slept in ashelter (including now)?No09/19/2023Housing Stability Vital SignAnswerDate RecordedIn the last 12 months, was there a time when you were not able to pay the mortgage or rent on time?No12/29/2024Number of Times Moved in the Last YearNot on file12/29/2024t any time in the past 12 months, were you homeless or living in a correction (including now)?No02/01/2025 EducationAnswerDate RecordedWhat is the highest level of school you have completed or the highest degree you have received?High school kmdwvsij87/29/2023 Estimated Date of BmaaeucdDsqapdjgLph81/03/2026ased on last menstrual period of 02/21/2025Sex and Gender InformationValueDate RecordedSex Assigned at BirthNot on fileLegal JilAzwcok78/15/2023 7:18 PM EDTGender IdentityNot on file Sexual OrientationNot on 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 Not on fileNot on fileNot on file Last Filed Vital Signs Vital SignReadingTime TakenCommentsBlood Sjckvzrw630/8211 3:04 PM EST Jlrxh412607/30/2025 3:36 PM XGJRtuzybavbxi89.2 ??C (97.1 ??F)07/30/2025 3:36 PM EDTRespiratory Wcze127512/23/2022 4:16 PM ESTOxygen Kpbgtglsrl97%07/30/2025 3:36 PM EDTInhaled Oxygen Concentration--Nlmxco98.3 kg (166 lb)09/30/2025 3:04 PM EST Onkwaq762.5 cm (5' 2 )07/30/2025 3:36 PM EDTBody Mass Index30.3609 3:36 PM EDT Plan of Treatment DateTypeDepartmentCare Team (Latest Contact Info)Hegpfmqxccv35/19/2025 3:30 PM ESTRoutine [facility] [place] [facility] [address] [place] [address] Nathan Pop, [address] [place] [address] Health MaintenanceDue DateLast DoneCommentsCOVID-19 Vaccine ( season) 2025Influenza Vaccine (#1)Pap Smear08/18/2027 08/18/2024, 08/15/2023, 06/20/2022, Additional history existsCervical Cancer Utnblbvec32/09/2028HPV/Dtptdr07813Pneumococcal Vaccine: Pediatrics (0 to 5 Years) and At-Risk Patients (6 to 64 Years)Aged OutNo longer eligible based on patient's age to complete this topic Procedures Procedure NamePriorityDate/TimeAssociated DiagnosisCommentsUS OB BPP W NON-CYLXSZ5110/03/2025 11:36 AM EST POCT URINALYSIS HDTYMXGIPqbabiv91/05/2025 3:13 PM EST Third trimester ([facility]) US OB BPP W NON-OPTEVJ1409/26/2025 2:50 PM EDT US OB BPP W NON-NZAOSL7209/19/2025 12:17 PM EDT POCT URINALYSIS MTWOIXOCQqntyfb95/22/2025 4:09 PM EDT 29 weeks gestation of ([facility]) Third trimester ([facility]) ALL CBC WITH AUTO SZPAUdcdrsq29/09/2025 5:15 PM EDT MHPT FIEXEPFKXNWdpvmvu41/09/2025 5:15 PM EDT [facility] AHPRDqpzmpn20/09/2025 5:15 PM EDT SRMCOH PROTHROMBIN TIME INR W/O DLTQUqlivxm51/09/2025 5:15 PM EDT [facility] MPTFdqcpfv93/09/2025 5:15 PM EDT [facility] SYIIucwufr13/09/2025 5:15 PM EDT ALL URIC IWNGKplclxr64/09/2025 5:15 PM EDT TBH MGQXZLKSNBRzlkaap54/09/2025 5:15 PM EDT ALL WAYErcmnka85/09/2025 5:15 PM EDT [facility] URINE T PROTEIN CREAT OBPBQQzkmtcf07/09/2025 5:05 PM EDT POCT URINALYSIS SUMTNDHUHhbmbvh54/09/2025 4:26 PM EDT 27 weeks gestation of ([facility]) TB[facility] TOTAL PROTEIN 24 HOUR SJFQYBzjlfrf72/04/2025 8:00 AM EDT US OB BPP W NON-GFUPBS4408/27/2025 6:02 PM EDT TB[facility] URINE T PROTEIN CREAT LFCNNRjdocte23/02/2025 5:50 PM EDT [facility] JVAJhydgcb58/02/2025 5:00 PM EDT [facility] MNPYVfffeix57/02/2025 5:00 PM EDT SRMCOH PROTHROMBIN TIME INR W/O QXCOJzoaycm25/02/2025 5:00 PM EDT ALL ABNJvadcpu96/02/2025 5:00 PM EDT [facility] QSTGytdzye86/02/2025 5:00 PM EDT ALL URIC TDQMHxrwebg35/02/2025 5:00 PM EDT TBH FEBPADFYKBBlbhqva45/02/2025 5:00 PM EDT ALL SIJPucxjft43/02/2025 5:00 PM EDT ALL CBC WITH AUTO QDLKOgyblzx37/02/2025 5:00 PM EDT POCT URINALYSIS ZJKUSLZEUsipahb83/02/2025 3:53 PM EDT 26 weeks gestation of ([facility]) URINE CULTURE, NLBJHRRZfrydml07/30/2025 8:10 AM EDT POCT URINALYSIS MGXYEYAMQzawekh62/17/2025 2:39 PM EDT 24 weeks gestation of ([facility]) Second trimester ([facility]) US OB LIMITED 1+ BNXZBFOYeymhqu19/17/2025 2:22 PM EDT Encounter for follow-up ultrasound of anatomy ([facility]) AFP, SERUM, OPEN SPINA LFCXQQXqtsxap59/20/2025 5:07 PM EDT POCT URINALYSIS GKJHSTZLHfolnzm77/20/2025 3:50 PM EDT 20 weeks gestation of ([facility]) Second trimester ([facility]) US OB 14+ WEEKS ANATOMY WNQWBoyhqqk56/20/2025 3:26 PM EDT Screening, , for anatomic survey ([facility]) PAP PBPXNDbnobdg66/23/2024 12:00 AM EDTTHINPREP PAP AND HPV MRNA E6/E7 W/RFL HPV 16,18/33Wxveafu12/09/2023 4:00 PM EDT Well woman exam with routine gynecological exam from Last 3 Months or Most Recently Relevant to Health Maintenance Results * US OB BPP W NON-STRESS (10/03/2025 11:36 AM EST) Only the most recent of4 resultswithin the time period is included. Anatomical RegionLateralityModalityOtherSpecimen (Source)Anatomical Location / LateralityCollection Method / VolumeCollection TimeReceived Time10/03/2025 11:36 AM EST Narrative 10/03/2025 11:38 AM EST [facility] ?[address] ? [place] [address] ? Ultrasound Report ? Signed ? Patient: MCCONEGLY,DRISS M ?MR#: [id number] ?? : 1995 ?Acct:[id number] ?? Age/Sex: 30 / F ?ADM Date: 11/08/25 ?? Loc: US ? Attending Thony Keane ? Ordering Physician: Lakhwinder,Steph ?? Date of Service: 10/03/25 ?? Procedure(s): US OB BPP w non-stress ?? Accession Number(s): [id number] ? cc: Stpeh Keane; Yomaira BELTRAN ? [facility] ? [address] ? [place] [address] ? Patient Name: ?? DRISS GAMA ? MRN: [facility]:[id number] ? date: 1995 ?Sex: F ?? Assigned Patient Location: US ?? Current Patient Location: ? Accession/Order Number: [id number] ?? Exam Date: 10/03/2025 ??10:53 ?Report Date: [...] non-stress ?? IMPRESSION: ? Biophysical profile score: /8 ? Impression dictated by: Will Faria M.D. ??10/03/2025 11:36 AM ? Dictation Location: RADIO-PC-17 ? Electronically authenticated by: [id number] ??Y ?? Date: 10/03/2025 ??11:36 ? Dictated By: ?Will Faria M.D. ? Signed By: ?10/03/25 1138 ? DD/ 1136 ? TD/TT: ? Porter Head: Procedure Note Radiology, Radiologist, MD - 10/03/[address] [address] Ultrasound Report Signed Patient: DRISS GAMA MMR#: [id number] : 1995Acct:[id number] Age/Sex: 30 / FADM Date: 10/03/25 Loc: US Attending Dr: Steph Keane Ordering Physician: Steph Keane Date of Service: 10/03/25 Procedure(s): US OB BPP w non-stress Accession Number(s): [id number] cc: Steph Keane; Yomaira BELTRAN The [place] [address] Patient Name: DRISS GAMA MRN: [facility]:[id number] date: 1995 Sex: F Assigned Patient Location: US Current Patient Location: Accession/Order Number: [id number] Exam Date: 10/03/2025 10:53 Report Date: 10/03/2025 [...] BPP w non-stress IMPRESSION: Biophysical profile score: 8/8 Impression dictated by: Will Faria M.D. 10/03/2025 11:36 AM Dictation Location: [place] [address] Electronically authenticated by: [id number] Y Date: 1:36 Dictated By: Will Faria M.D. Signed By:10/03/25 1138 DD/ 1136 TD/TT: Porter Head: Authorizing ProviderResult TypeResult StatusSteph Keane NPCLINISYNC IMAGING Final Result * POCT urinalysis dipstick manually resulted (09/30/2025 [...] Location / LateralityCollection Method / VolumeCollection TimeReceived FwzlKmdns89/05/2025 3:13 PM EST Narrative Authorizing ProviderResult TypeResult StatusCorey Kiesha DOPOINT OF CARE TEST ENTER/EDIT ORDERABLESFinal Result * (ABNORMAL) [facility] CREATININE (09/03/2025 5:15 PM EDT) Only the most recent of2 resultswithin the time period is included. ComponentValueRef RangeTest MethodAnalysis TimePerformed AtPathologist Signature CREATININE0.42(L)0.55 - 1.02 mg/dLTBHTBH EGFR-AF SRI LANKAN>60>=60 mL/min/1.73m 2 TBHTBH EGFR-NON AF SRI LANKAN>60>=60 mL/min/1.73m 2TBHSpecimen (Source)Anatomical Location / LateralityCollection Method / VolumeCollection TimeReceived Time 09/03/2025 5:15 PM EDT1 5:21 PM EDT Narrative CLINISYNC - 09/03/2025 5:40 PM EDT Authorizing ProviderResult TypeResult StatusCorey [facility] DOCLINISYNCFinal Result Performing OrganizationAddressCity/State/ZIP CodePhone Number JENNIFER [facility] * SRMCOH PROTHROMBIN TIME INR W/O COUM [...] 5:15 PM EDT1 5:21 PM EDT Narrative CLINISYIA - 09/03/2025 5:45 PM EDT Authorizing ProviderResult TypeResult StatusCorey [facility] DOCLINISYNCFinal Result Performing OrganizationAddressCity/State/ZIP CodePhone Number [facility] * (ABNORMAL) MHPT FIBRINOGEN (09/03/2025 5:15 PM EDT)ComponentValueRef RangeTest MethodAnalysis TimePerformed AtPathologist LdsbprqhhGBEPEMRTQC125(H)200 - 400 mg/dLTBHSpecimen (Source)Anatomical Location / LateralityCollection Method / VolumeCollection TimeReceived Time09/03/2025 5:15 PM EDT1 5:21 PM EDT Narrative CLINISYNC - 09/03/2025 5:45 PM EDT Authorizing ProviderResult TypeResult StatusCorey [facility] DOCLINISYNCFinal Result Performing OrganizationAddressCity/State/ZIP CodePhone Number [facility] * [facility] AST (09/03/2025 5:15 PM EDT) Only the most recent of2 resultswithin the time period is included. ComponentValueRef RangeTest MethodAnalysis TimePerformed AtPathologist Signature ASPARTATE AMINO GWYUDMRILPH3178 - 37 U/LTBHSpecimen (Source)Anatomical Location / LateralityCollection [...] OrganizationAddressCity/State/ZIP CodePhone Number CLINISYNC TB * CCF ALT (09/03/2025 5:15 PM EDT) Only the most recent of2 resultswithin the time period is included. ComponentValueRef RangeTest MethodAnalysis TimePerformed AtPathologist Signature ALANINE UTUGWAKPUNGMTYAF1927 - 59 U/LTBHSpecimen (Source)Anatomical Location / LateralityCollection [...] PM EDT 09/03/2025 5:21 PM EDT Narrative JENNIFER - 09/03/2025 5:40 PM EDT Authorizing ProviderResult TypeResult StatusCorey Kiesha DOCLINISYNCFinal Result Performing OrganizationAddressCity/State/ZIP CodePhone Number JENNIFER TB * (ABNORMAL) ALL CBC WITH AUTO [...] - 35.2 g/dLTBHTBH RDW13.611.0 - 15.0 %TBHTBH [id number] - 450 10 3/uLTBHTBH MPV9.89.5 - 13.5 [...] Performing OrganizationAddressCity/State/ZIP CodePhone Number CLINISYNC TB * ALL BUN (09/03/2025 5:15 [...] RangeTest MethodAnalysis TimePerformed AtPathologist SignatureTOTAL PROTEIN URINE TXUDUM82.6(H)<=11.9 mg/dLTBHTOTAL VOLUME 24 HOUR SXRVE579xB/24hr TBHTBH TOTAL PROTEIN 24 HOUR WEISW024.6<=149.1 mg/24hrTBHSpecimen (Source) Anatomical Location / LateralityCollection Method / VolumeCollection Time Received Time08/29/2025 8:00 AM EDT1 10:35 AM EDT N[facility]ative [facility] - 08/29/2025 12:08 PM EDT Authorizing ProviderResult TypeResult StatusGeneric External Data Provider CLINISYNCFinal ResultPerforming OrganizationAddressCity/State/ZIP CodePhone Number [facility] * ALL LDH (08/27/2025 5:00 PM EDT)ComponentValueRef RangeTest MethodAnalysis TimePerformed AtPathologist SignatureLACTATE XFRRBWQKPRCWN76664 - 234 U/LTBH Specimen (Source)Anatomical Location / LateralityCollection Method / Volume Collection TimeReceived Time08/27/2025 5:00 PM EDT1 5:01 PM EDT Narrative CLINISYIA - 08/27/2025 5:19 PM EDT Authorizing ProviderResult TypeResult StatusKristina Lakhwinder NPCLINISYNCFinal ResultPerforming OrganizationAddressCity/State/ZIP CodePhone Number [facility] * URINE CULTURE, ROUTINE (08/25/2025 8:10 AM EDT)ComponentValueRef RangeTest MethodAnalysis TimePerformed AtPathologist SignatureURINE CULTURE, ROUTINE ??Urine Culture, Routine TBHURINE CULTURE, ROUTINEMixed urogenital floraTBHURINE CULTURE, HILOLJF24,000- 50,000 colony forming units per mLTBHURINE CULTURE, ROUTINEPerformed at: - LabCorewell Health Ludington HospitalTBHURINE CULTURE, [id number] [place], [place] [id number] URINE CULTURE, ROUTINELab Director: Cm Sandoval PhD, Phone: [phone] Specimen (Source)Anatomical Location / LateralityCollection Method / Volume Collection TimeReceived Time08/25/2025 8:10 AM EDT08/25/2025 8:30 AM EDT Narrative JENNIFER - 08/26/2025 10:07 PM EDT Authorizing ProviderResult TypeResult StatusGeneric External Data ProviderLAB BLOOD ORDERABLESFinal ResultPerforming OrganizationAddressCity/State/ZIP Code Phone Number JENNIFER [facility] * US OB limited 1+ fetuses (08/12/2025 [...] Alas MD Authorizing ProviderResult TypeResult StatusCorey Kiesha [facility] OB US PROCEDURES Final Result * AFP, SERUM, OPEN SPINA BIFIDA (07/15/2025 5:07 PM EDT)ComponentValueRef Range Test MethodAnalysis TimePerformed AtPathologist SignatureRESULTSReport.TBHTEST RESULTS:*Screen Negative*.TBHGEST. AGE ON COLLECTION DATE20.6. weeksTBHGESTAT. AGE BASED ONLMP.TBHComment: Recalculations are not recommended when gestational dating by LMP and ultrasound are within 10 days. MATERNAL AGE AT EDD30.7. yrTBHRACECaucasian.CKBERPPLA548. lbsTBHINSULIN DEP DIABETESNo.TBHMULTIPLE GESTATIONNo.TBHAFP VALUE59.2. ng/mLTBHAFP MOM0.95.TBHOSBR RISK 1 [id number].TBHINTERPRETATIONComment.TBHComment: Interpretation: Screen Negative This result is screen [...] Customer Services to discuss available options. ??The [employer] recommends amniocentesis be offered to women age 35 and older. COMMENT:Comment.TBHComment: Amy Ramos, Ph.D., [facility] Director References: Available Upon Request. Multiples Of Median Cutoffs ?For AFP Elevations Hsieh ?? 2.5 ? Black ?2.8 IDD ? 2.0 ? Twins ?4.5 ?Abbreviation Definitions IDD - Insulin Dep Diabetes OSBR - Open Spina Bifida Risk For further inquiries contact [facility] at [phone]. This test was developed and its performance characteristics determined by [employer]. It has not been cleared or approved by the Food and Drug Administration. Performed at: ??[facility] [place], [place] ??[id number] Industrial Hygenist: Dona Justin [facility], Phone: ??[phone] Specimen (Source)Anatomical Location / LateralityCollection Method / Volume Collection TimeReceived Time07/15/2025 5:07 PM EDT07/15/2025 5:10 PM EDT Narrative CLINIS[facility]NC - 07/18/2025 1:07 AM EDT N N LMP [id number] 2 17 N 1 Y 146 N N N N N White/ Authorizing ProviderResult TypeResult StatusGeneric External Data ProviderLAB BLOOD ORDERABLESFinal ResultPerforming OrganizationAddressCity/State/ZIP Code Phone Number CLINIS[facility]NC TB[facility] * US OB 14+ weeks [...] ?? , PHD at 16-Jul-2025 08:07:07 AM [facility] Procedure Note Travis Rueda MD - [...] signed by TRAVIS RUEDA II, MD, PHD [id number] 08:07:07 AM [facility] Authorizing ProviderResult TypeResult StatusCorey Kiesha DOIMG OB US PROCEDURES Final Result * Pap Smear (08/18/2024 12:00 AM EDT)Specimen (Source)Anatomical Location / LateralityCollection Method / VolumeCollection TimeReceived TimeSwabCervical swab / Unknown Narrative Authorizing ProviderResult TypeResult StatusFazio Nurse [facility] ObLAB CYTOLOGY ORDERABLESFinal ResultPerforming OrganizationAddressCity/State/ZIP CodePhone Number [...] DO [address] [place] [address] [facility] - [facility]02/14/24 Eliceo Beltran DO [address] [place] [address] PCP - Medical [facility]07/27/2412
--- OUTSIDE RECORDS SUMMARY | 2025-10-07 16:40 | XMS_ITS | Encounter Summary ---
Author Organization [employer] tem Address [id number] [address] [place] [address] Care Team Providers Care Market Research Senior Project Manager Name Role Phone Cruz Rodríguez MD Primary Care Provider [phone] Encounter Details DateTypeDepartmentCare Team (Latest Contact Info)Tgkynoycqxp09/09/2025Travel Social History Tobacco UseTypesPacks/DayYears UsedDateSmoking Tobacco: NeverSmokeless Tobacco: NeverAlcohol UseStandard Drinks/WeekCommentsNo0 (1 standard drink = 0.6 oz pure alcohol)AUDIT-CAnswerDate RecordedQ1: How often do you have a drink containing alcohol?Never09/10/2025Q2: How many drinks containing alcohol do you have on a typical day when you are drinking?Patient does not drink09/10/2025Q3: How often do you have six or more drinks on one occasion?Never09/10/2025hildcareAnswer Date MlvimcufWaleppvanYlzaofs60/13/2019EmploymentAnswerDate RecordedEmployment Tczrrhd3305/08/2019Hunger ScreeningAnswerDate RecordedWithin the past 12 months we worried whether our food would run out before we got money to buy more.Never True09/10/2025Within the past 12 months the food we bought just didn't last and we didn't have money to get more.Never True09/10/2025Purpose - LifeAnswerDate RecordedPurpose and direction in qibnJdzlons03/11/2021Estimated Date of MhznnfgeVhoxuuqjKcu23/03/2026Based on last menstrual period of 02/21/2025 (Exact Date)Sex and Gender InformationValueDate RecordedSex Assigned at BirthNot on fileLegal OnxFgdwjc32/07/2019 2:55 PM ESTGender IdentityNot on fileSexual OrientationNot on filedocumented as of this encounter Plan of Treatment DateTypeDepartmentCare Team (Latest Contact Info)Jdgkxcrhmmt57/13/2025 8:00 AM ESTAppointment Maternal Medicine [place] [address] [facility] [address] [place] [address] 11/03/2025 2:30 PM ESTOffice Visit Maternal- Medicine at [facility] [address] [place] [phone] Kayleigh Rizzo, PAAlbinC [address] [facility] [address] [place] [address] documented as of this encounter Visit Diagnoses Not on filedocumented in this encounter Care Teams Team MemberRelationshipSpecialtyStart DateEnd Date Cruz Rodríguez MD [address] [place] [address] PCP - GeneralFamily Medicine12/02/18documented as of this encounter
--- OUTSIDE RECORDS SUMMARY | 2025-10-07 16:40 | XMS_ITS | Encounter Summary ---
Author Organization [facility] tem Address [id number] [address] [place] [address] Care Team Providers Care City Clerk Name Role Phone Cruz Rodríguez MD Primary Care Provider [phone] Encounter Details DateTypeDepartmentCare Team (Latest Contact Info)Coyvgqylvdu37/03/2025Orders Only Maternal- Medicine at [facility] [address] [place] [phone] Kayleigh Rizzo, PAAlbinC [address] [address] Essential hypertension affecting in third trimester Social [...] or more drinks on one occasion?Never5ChildcareAnswer Date ZbbkrvuiXgpseuvezQgsfeaj33/13/2019EmploymentAnswerDate RecordedEmployment Whrrlsz4205/08/2019Hunger ScreeningAnswerDate RecordedWithin the past 12 months we worried whether our food would run out before we got money to buy more.Never True09/10/2025Within the past 12 months the food we bought just didn't last and we didn't have money to get more.Never True09/10/2025Purpose - LifeAnswerDate RecordedPurpose and direction in fhsjPlsifta83/11/2021Estimated Date of GzfjxnlkGpcuftqfAkr88/03/2026Based on last menstrual period of 02/21/2025 (Exact Date)Sex and Gender InformationValueDate RecordedSex Assigned at BirthNot on fileLegal LtlKvaeeh02/07/2019 2:55 PM ESTGender IdentityNot on fileSexual OrientationNot on filedocumented as of this encounter Plan of Treatment DateTypeDepartmentCare Team (Latest Contact Info)Solukhiuhcd89/13/2025 8:00 AM ESTAppointment Maternal Medicine [place] [address] [facility] [address] [place] [address] 11/03/2025 2:30 PM ESTOffice Visit Maternal- Medicine at [facility] [address] [place] [address] Kayleigh Rizzo, FORREST [address] [address] documented as of this encounter Visit Diagnoses Diagnosis Essential hypertension affecting in third trimester documented in this encounter Care Teams Team MemberRelationshipSpecialtyStart DateEnd Date Cruz Rodríguez MD [address] [place] [address] PCP - GeneralFamily Medicine12/02/18documented as of this encounter
--- OUTSIDE RECORDS SUMMARY | 2025-10-07 16:40 | XMS_ITS | Encounter Summary ---
Author Organization [facility] Address [address] [place] [address] Care Team Providers Care Correctional Nurse Name Role Phone Cruz Rodríguez MD Unavailable [phone] Cruz Rodríguez MD Primary Care Provider [phone] Cruz Rodríguez MD Unavailable + [phone] [facility] [place] DECISION SUPPORT ANALYST Unavailable Trista Thao DECISION SUPPORT ANALYST Unavailable [phone] Eliceo Beltran DO Primary Care Provider [phone] Eliceo Beltran DO Unavailable [phone] Encounter Details DateTypeDepartmentCare Team (Latest Contact Info)Zjzkzohlqzb74/20/2024Clinisync Result Encounter [facility] External Department Unsolicited Jony Pop, DO [address] [place] [address] Social History Tobacco UseTypesPacks/DayYears UsedDateSmoking Tobacco: NeverSmokeless Tobacco: NeverAlcohol UseStandard Drinks/WeekCommentsNever0 (1 standard drink = 0.6 oz pure alcohol)caffeine: 1-2 cups per day, coffee and mqiE8243 Health Literacy AnswerDate RecordedHow often do you [...] relatives?Once a week12/29/2024How often do you attend yazdanism or islam services?Patient lgtdnryp12/03/2025Do you belong to any clubs or organizations such as yazdanism groups, unions, [employer] or athletic [employer] ups, or school groups?No12/29/2024How often do you attend meetings of the clubs or organizations you belong to?Patient wdzcolek65/03/2025re you , , , , never , [...] hard at all12/29/2024PHQ-2AnswerDate RecordedPatient Health Questionnaire-2 Score0 07/30/2025[facility] [place] [facility] Occupational Health - Occupational Stress QuestionnaireAnswerDate RecordedDo you feel stress - tense, restless, nervous, or anxious, or unable to sleep at night because yourmind is troubled all the time - these days?Only a ryttok8212/29/2024Exercise Vital SignAnswerDate Recorded On average, how many [...] steady place to sleep or slept in [facility] (including now)?No09/19/2023Housing Stability Vital SignAnswerDate RecordedIn the [...] the highest degree you have received?High school gtpndquo94/29/2023 CommentsUnknownSex and Gender InformationValueDate RecordedSex Assigned at BirthNot on fileLegal HezWuakal25/15/2023 7:18 PM EDTGender IdentityNot on fileSexual OrientationNot on 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 End Date CashierNot on fileNot on fileNot on filedocumented as of this encounter Functional Status * AUDIT-C ScoreAnswerDate of LgpmbrrvnvOjkyyf351/03/2025 10:25 PM ESTChristine, Generic * Q1: How [...] or more drinks on one occasion?AnswerDate of SmtzriymzsTphsyoVefoo60/03/2025 10:25 PM ESTChristine, Generic * Over the past 2 weeks, how often have you been bothered by any of the following problems?QuestionAnswerDate of AssessmentAuthorLittle interest or pleasure in doing thingsNot at all07/30/2025 3:36 PM EDBill Wallis LPNFeeling down, depressed, or hopelessNot at all07/30/2025 3:36 PM EDT Bill Gould LPNPatient Health Questionnaire-2 Byylh643 3:36 PM Bill Locke LPN documented as of this encounter Plan of Treatment DateTypeDepartmentCare Team (Latest Contact Info)Tghpmelqhuw31/19/2025 3:30 PM ESTRoutine [facility] [address] [facility] [facility] [place] [phone] Jony Pop DO [address] [facility] [place] [address] documented as of this encounter Procedures Procedure NamePriorityDate/TimeAssociated DiagnosisCommentsECG 12-LEAD02/13/2024 2:55 PM EDT documented in this encounter Results * ECG 12-LEAD (02/13/2024 2:55 PM EDT)Anatomical RegionLateralityModalityOther Specimen (Source)Anatomical Location / LateralityCollection Method / Volume Collection TimeReceived Time02/13/2024 2:55 PM EDT Narrative 02/14/2024 6:50 AM EDT [facility] ?[address] ? [place], [facility] ? Electrocardiograph Report ? Signed ? Patient: DRISS COPE ?MR#: [id number] ?? : 1995 ?Acct:[id number] ?? Age/Sex: 28 / F ?ADM Date: 02/13/24 ?? Loc: PST ? Attending Dr: Jony Pop D.O. ? Ordering Physician: Jony Pop D.O. ?? Date of Service: 02/13/24 ?? Procedure(s): ECG 12 lead ?? Accession Number(s): [id number] ? cc: ?[facility] ? Test Date: ?2024-02-13 ?? Pat Name: ? DRISS BARBERBOYD ? Department: ? Room: ? - ?? Gender: ? Female ? Networking Administrator: ? : ?1995 ? Requested By: JONY POP ?? Order Number: [id number] ?Reading MD: ?? RAMSEY ??BALL ? Measurements ?? Intervals ?[place] ? Rate: ? 86 ? P: ?31 ?? [place]: ? 133 ?QRS: ?20 ?? QRSD: ? 89 ? T: ?47 ?? QT: ? 374 ? QTc: ?449 ? Interpretive Statements ?? SINUS RHYTHM ?? No previous ECG available for comparison ?? Electronically Signed On 02-14-2024 6:50:27 EDT by RAMSEY ??BALL ? Dictated By: ?Ball,Ramsey D.O. ? Signed By: ?02/14/24 0650 ? DD/ 1455 ? TD/TT: ? Support Services Manager: Procedure Note Radiology, Radiologist, MD - 02/14/2024 [place] [address] Electrocardiograph Report Signed Patient: DRISS COPE [facility]#: [id number] : 1995Acct:[id number] Age/Sex: 28 / FADM Date: 02/13/24 Loc: PST Attending Dr: Jony Pop D.O. Ordering Physician: Jony Pop D.O. Date of Service: 02/13/24 Procedure(s): ECG 12 lead Accession Number(s): [id number] cc: [facility] Test Date: 2024-02-13 Pat Name: DRISS COPE Department: Room: - Gender: Female Networking Administrator: : 1995 Requested By: JONY POP Order Number: [id number] Reading MD: RAMSEY ORDAZ Measurements Intervals [place] Rate: 86 P: 31 [place]: 133 QRS: 20 QRSD: 89 T: 47 QT: 374 QTc: 449 Interpretive Statements SINUS RHYTHM No previous ECG available for comparison Electronically Signed On 02-14-2024 6:50:27 EDT by RAMSEY ORDAZ Dictated By: Ramsey Ordaz D.O. Signed By:02/14/24 0650 DD/ 1455 TD/TT: Support Services Manager: Authorizing ProviderResult TypeResult StatusCorey Kiesha DOCLINISYNC IMAGINGFinal Result documented in this encounter Visit Diagnoses Not on filedocumented in this encounter Care Teams Team MemberRelationshipSpecialtyStart DateEnd Date Cruz Rodríguez MD [address] [place] [address] PCP - [facility]09/26/2112 Cruz Rodríguez MD [address] [place] [address] PCP - [facility] Cruz Rodrígeuz MD [address] [place] [address] PCP - [facility]/ Eliceo Beltran DO [address] [place] [address] [facility] - [facility] Eliceo Beltran DO [address] [place] [address] PCP - Medical [facility]07/27/2412 [place] NP [address] [place] [address] Nurse PractitionerFamily Bekfypnp65/10/235 Trista Thao NP [address] [place] [address] Nurse PractitionerPulmonary Vbfsydo73/10/235documented as of this encounter
--- OUTSIDE RECORDS SUMMARY | 2025-10-07 16:40 | XMS_ITS | Clinical Summary ---
Author Organization [employer] [facility] Address [id number] [address] [place] [address] Care Team Providers Care Rewinder Operator Name Role Phone Cruz Rodríguez MD Primary Care Provider [phone] Allergies No known active allergies Medications MedicationSigDispense [...] pen needles to give insulin. 100 each 1105Active insulin glargine-yfgn 100 unit/mL (3 mL) insulin pen Indications:Essential hypertension affecting in third trimesterPrime with 2 units and give 5 units every morning and 23 units subQ at bedtime. 15 mL 5Active insulin glargine-yfgn 100 unit/mL (3 mL) [...] ProblemNoted DateDiagnosed DateEssential hypertension affecting in third unyrqrwra40/10/2025Insulin controlled gestational diabetes mellitus (GDM) in third mldcjniso96/26/2025Estimated Date of DeliveryCommentsYes 11/28/2025ased on last menstrual period of 02/21/2025 (Exact Date) Encounters DateTypeDepartmentCare BhdrSkafkxtcfrg69/11/2025 2:30 PM ESTTelemedicine [facility] [address] [place] [address] Kayleigh Rizzo PA-C Insulin controlled gestational diabetes mellitus (GDM) in third trimester (Primary Dx); Essential hypertension affecting in third evgydrlsw06/11/2025Travel 10/05/2025Telephone [facility] [address] [place] [address] Anjana Davalos, DILALO 10/04/20258557Wyrxvf84/03/2025Telephone [facility] [address] [place] [address] Cha Harris, DIALLO 09/28/2025Orders Only [facility] [address] [place] [facility] [place] [address] Kayleigh Rizzo, PA-C Essential hypertension affecting in third xofrsduhh40/27/2025Telephone [facility] [address] [place] [address] Verito Gudino LD 09/21/2025Remote Patient Monitoring [facility] [address] [place] [address] Kayleigh Rizzo, PA-C Insulin controlled gestational diabetes mellitus (GDM) in third trimester (Primary Dx); Essential hypertension affecting in third /23/2025Orders Only [facility] [address] [place] [facility] [place] [address] Camila Arciniega, RIDDLER OPERATOR-CNM Essential hypertension affecting in third nfpvaustq71/22/2025Telephone [facility] [address] [place] [address] Cha Harris, DIALLO 09/15/2025Orders Only [facility] [address] [place] [address] Kayleigh Rizzo PA-C Essential hypertension affecting in third ijijciaae05/16/2025 11:00 AM EDTTelemedicine Maternal Medicine [place] [address] [facility] [address] [place] [address] Madhuri Monroy MD 28 weeks gestation of (Primary Dx); Insulin controlled gestational diabetes mellitus (GDM) in second trimester; Essential hypertension affecting in third niqvvksjm25/16/2025Orders Only [facility]- [facility] [address] [place] [address] Zora Samuels, DIALLO Essential hypertension affecting in third trimester (Primary Dx); Insulin controlled gestational diabetes mellitus (GDM) in second trimester; Encounter for follow-up ultrasound of wjlxxbu0809/10/20256878Dgmzez71/10/2025 3:00 PM EDTOffice Visit [facility] [address] [place] [address] Jean Carlos Pina MD Diet controlled gestational diabetes mellitus (GDM) in second trimester (Primary Dx); Essential hypertension affecting in third nxmphnyfo31/08/2025Travel 09/01/2025Telephone [facility] [address] [facility] [address] Cha Harris RN 08/24/2025 1:30 PM EDTSupport Visit [facility] [address] [address] Teena Sarmiento, RN Kerline Steiner RD Gestational diabetes mellitus (GDM) in second trimester, gestational diabetes method of control kdokpufgsct28/28/8753Lbichx76/27/1799Xeezei53/26/2025bstract [facility] [address] [address] External, Scanning Provider 08/19/2025Orders Only [facility] [address] [facility] [address] Ref Prov, Not In System 08/18/2025bstract [facility] [address] [facility] [address] Madhuri Monroy MD 08/18/2025Orders Only [facility] [address] [place] [address] Khalida Garrett RN History of [...] or more drinks on one occasion?Never5ChildcareAnswer Date DdwhyuioVwopfzkrfFpgcmuu54/13/2019EmploymentAnswerDate RecordedEmployment Xoilcoy0805/08/2019Hunger ScreeningAnswerDate RecordedWithin the past 12 months we worried whether our food would run out before we got money to buy more.Never True09/10/2025Within the past 12 months the food we bought just didn't last and we didn't have money to get more.Never True09/10/2025Purpose - LifeAnswerDate RecordedPurpose and direction in dmdoDyagcdh60/11/2021Estimated Date of SdhuiuwlTojaedhrUdj19/03/2026Based on last menstrual period of 02/21/2025 (Exact Date)Sex and Gender InformationValueDate RecordedSex Assigned at BirthNot on fileLegal RqcQsfmxe06/07/2019 2:55 PM ESTGender IdentityNot on fileSexual OrientationNot on file Last Filed Vital Signs Vital SignReadingTime TakenCommentsBlood Sjqsxlhn485/801 10:34 AM EDT Kpcjz26010/10/2025 2:48 PM EDTTemperature--Respiratory Bkea088912/10/2018 11:10 AM ESTOxygen Ygrcwwfggs55%12/10/2018 11:10 AM ESTInhaled Oxygen Concentration-- Wmnmhn65.6 kg (160 lb)09/10/2025 10:34 AM NXVEhirew476.5 cm (5' 2.01 )09/04/2025 2:48 PM EDTBody Mass Index29.261 2:48 PM EDT Plan of Treatment DateTypeDepartmentCare Team (Latest Contact Info)Xizhzkdtrto87/13/2025 8:00 AM ESTAppointment [facility]aternal [facility] [place] [address] [facility] [address] [place] [address] 11/03/2025 2:30 PM ESTOffice Visit [facility] [address] [place] [address] Kayleigh Rizzo PA-C [address] [address] Health MaintenanceDue DateLast DoneCommentsDepression Klmvmkfwh54/08/2007dult BMI Follow Up Plan2013DTaP,Tdap and Td Vaccines (7 - Td or Tdap)2024 2014, 05/03/2000, 12/29/1997, Additional history existsInfluenza Vaccine RSV ( or age 60+ yrs) (1 - Risk 1-dose series)10/03/2025dult BMI Pdwlqqddy24Tobacco Screening Pap Smear Medical Devices Not on file Procedures Procedure NamePriorityDate/TimeAssociated DiagnosisCommentsUS M COMPREHENSIVE ANATOMIC WIAPTVGuczucd18/ 10:56 AM EDT History of pre-eclampsia in prior , currently GLUCOSE TOLERANCE, 3 LJLJFAkartyt91/20/2025 GLUCOSE TOLERANCE, UHZVGAAEcimlfi73/20/2025 GLUCOSE TOLERANCE, 1 TDDZAcwwisa73/20/2025 SECOND HOUR GLUCOSE TOLERANCE 100 GM GCPSYwacrux08/20/2025 ULTRASOUND RZDBDVEpizexb49/17/2025 3:39 PM EDTGLU 1H POST 50G LOADRoutine 08/12/2025 ULTRASOUND XTQPNHFisneuf82/20/2025 3:43 PM EDTAFP SINGLE MARKER SCRN, MATERNAL, BQQFNIzwlmdl79/20/2025 10:17 AM EDTfrom Last 3 Months Results * US MFM COMPREHENSIVE ANATOMIC SURVEY (09/10/2025 10:56 AM EDT)Anatomical RegionLateralityModalityOB-GYNUltrasoundSpecimen (Source)Anatomical Location / LateralityCollection Method / VolumeCollection TimeReceived Time09/10/2025 9:58 AM EDT Narrative 09/10/2025 3:55 PM EDT NAME: ??JAYY REYNAGA : 1995 SEX: F Accession Number: [id number] ORDERING PHYSICIAN: MADHURI MONROY REFERRING PHYSICIAN: JONY MEJÍA Coding Procedures ? 62427: Ultrasound, uterus, real time with image documentation, and maternal evaluation ? plus detailed anatomic examination, transabdominal approach;single or first gestation ? 56208: Ultrasound, uterus, real time with image documentation, transvaginal Indication Screening for Anatomic Survey , Screening for cervical length , Gestational diabetes, Chronic hypertension affecting , History of prior with pre-eclampsia , History of prior with delivery , Previous surgery to cervix -(D&C). History OB History ? 2. Para 1 ? [id number] Current Cell free DNA ?Low Risk analysis Maternal Assessment Physical Exam ??Height 157 cm, 5 ft 2 in. Weight 75 kg, 165 lb. Initial weight 64 kg, 140 lb. BMI 30.18 kg/m??. Initial ? BMI 25.61 kg/m??. Weight gain 11 kg, 25 lb Method Transabdominal and transvaginal ultrasound examination. View: Suboptimal view: limited by position. Medical Telephone Triage Nurse Telephone Triage Nurse declined Hsieh . Number of fetuses: 1 [...] (oz) ? 15 oz EFW by: ?Hadlock (WIU-HR-UA-FL) Extended Tibia ??44.3 mm 27w 2d 10% Gerda Subway Train Operator ? 3.2 mm CM ? 6.6 mm [...] Heart / Thorax RVOT view. LVOT view. 9-rifwva-sknsiut view. Bicaval view. Ductal arch view. Extremities [...] REYNAGA : 1995 SEX: F Accession Number: [id number] ORDERING PHYSICIAN: MADHURI MONROY REFERRING PHYSICIAN: JONY MEJÍA Coding Procedures 95190: Ultrasound, uterus, real time with image documentation, and maternal evaluation plus detailed anatomic examination, transabdominalapproach;single or first gestation 36749: Ultrasound, uterus, real time with imagedocumentation, transvaginal Indication Screening for Anatomic Survey , Screening for cervical length ,Gestational diabetes, Chronic hypertension affecting , History of prior with pre-eclampsia , History of prior pregnancywith delivery , Previous surgery to cervix -(D&C). History OB History 2. Para 1 [id number] Current Cell free DNA Low Risk analysis Maternal Assessment Physical Exam Height 157 cm, 5 ft 2 in. Weight 75 kg, 165 lb. Initialweight 64 kg, 140 lb. BMI 30.18 kg/m??. Initial BMI 25.61 kg/m??. Weight gain 11 kg, 25 lb Method Transabdominal and transvaginal ultrasound examination. View: Suboptimalview: limited by position. Medical Telephone Triage Nurse Telephone Triage Nurse declined Hsieh . Number of fetuses: 1 [...] EFW (oz) 15 oz EFW by: Hadlock (MIC-HZ-IN-FL) Extended Tibia 44.3 mm 27w 2d 10% Gerda Subway Train Operator 3.2 mm CM 6.6 mm 44% Nicolaides [...] Heart / Thorax RVOT view. LVOT view. 4-wycwev-kkcncai view. Bicaval view.Ductal arch view. Extremities / [...] MethodAnalysis TimePerformed AtPathologist SignatureGlucose Tolerance Test 2 Qqxq675XJXRKTFB TRANSCRIBED RESULTSSpecimen (Source)Anatomical Location / LateralityCollection Method / VolumeCollection TimeReceived TimeBloodVenous blood / Unknown Narrative Authorizing ProviderResult TypeResult StatusNot In System Ref ProvLAB BLOOD ORDERABLESFinal ResultPerforming OrganizationAddressCity/State/ZIP CodePhone Number MANUALLY TRANSCRIBED RESULTS * Glucose tolerance, 1 hour (08/15/2025)ComponentValueRef RangeTest Method Analysis TimePerformed AtPathologist SignatureGlucose Tolerance Test 1 Kgcd159 MANUALLY TRANSCRIBED RESULTSSpecimen (Source)Anatomical Location / Laterality Collection Method / VolumeCollection TimeReceived TimeBloodVenous blood / Unknown Narrative Authorizing ProviderResult TypeResult StatusNot In System Ref ProvLAB BLOOD ORDERABLESFinal ResultPerforming OrganizationAddressCity/State/ZIP CodePhone Number MANUALLY TRANSCRIBED RESULTS * Glucose tolerance, 3 hours (08/15/2025)ComponentValueRef RangeTest Method Analysis TimePerformed AtPathologist SignatureGlucose Tolerance Test 3 Wflx979 MANUALLY TRANSCRIBED RESULTSSpecimen (Source)Anatomical Location / Laterality Collection Method / VolumeCollection TimeReceived TimeBloodVenous blood / Unknown Narrative Authorizing ProviderResult TypeResult StatusNot In System Ref ProvLAB BLOOD ORDERABLESFinal ResultPerforming OrganizationAddressCity/State/ZIP CodePhone Number MANUALLY TRANSCRIBED RESULTS * Glucose, tolerance fasting (08/15/2025)ComponentValueRef RangeTest Method Analysis TimePerformed AtPathologist SignatureGlucose Tolerance Test Jjkmook98 MANUALLY TRANSCRIBED RESULTSSpecimen (Source)Anatomical Location / Laterality [...] TimePerformed AtPathologist SignatureGlucose, 1 hr PP 50GM epep637 MANUALLY TRANSCRIBED RESULTSSpecimen (Source)Anatomical Location / Laterality [...] Months Insurance Care Teams Team MemberRelationshipSpecialtyStart DateEnd Cruz Rodríguez MD [address] [place] [address] PCP - GeneralFamily Medicine12/02/18
--- OUTSIDE RECORDS SUMMARY | 2025-10-07 16:40 | XMS_ITS | Encounter Summary ---
Author Organization [facility] Address [address] [place] [address] Care Team Providers Care Cloth Tester Name Role Phone Eliceo Beltran DO Primary Care Provider CharlottecarolEliceo Unavailable [phone] Encounter Details DateTypeDepartmentCare Team (Latest Contact Info)Lalwmwnphhc87/06/2025Telephone [facility] [address] [place] [phone] Nathan Pop DO [address], [facility] Social History Tobacco UseTypesPacks/DayYears UsedDateSmoking Tobacco: NeverSmokeless Tobacco: NeverAlcohol UseStandard Drinks/WeekCommentsNever0 (1 standard drink = 0.6 oz pure alcohol)caffeine: 1-2 cups per day, coffee and [id number] Health Literacy AnswerDate RecordedHow often do you [...] relatives?Once a week12/29/2024How often do you attend methodist or christianity services?Patient cmlmbgee37/03/2025Do you belong to any clubs or organizations such as methodist groups, unions, [employer] or athletic leodan ups, or school groups?No12/29/2024How often do you attend meetings of the clubs or organizations you belong to?Patient urzuewll52/03/2025re you , , , , never , [...] hard at all12/29/2024PHQ-2AnswerDate RecordedPatient Health Questionnaire-2 Score0 07/30/2025[facility] [place] [facility] [employer] - Occupational Stress QuestionnaireAnswerDate RecordedDo you feel stress - tense, restless, nervous, or anxious, or unable to sleep at night because yourmind is troubled all the time - these days?Only a ailtra7712/29/2024Exercise Vital SignAnswerDate Recorded On average, how many [...] steady place to sleep or slept in [facility] (including now)?No09/19/2023Housing Stability Vital SignAnswerDate RecordedIn [...] the highest degree you have received?High school fuhumxxi25/29/2023 Estimated Date of GpbnyslxQnexfdgzTpm08/03/2026ased on last menstrual period of 02/21/2025Sex and Gender InformationValueDate RecordedSex Assigned at BirthNot on fileLegal JoxRxqmxv25/15/2023 7:18 PM EDTGender IdentityNot on file Sexual [...] Plan of Treatment DateTypeDepartmentCare Team (Latest Contact Info)Dnslrzqabjo93/19/2025 3:30 PM ESTRoutine [facility] [address] [place] [address] Nathan Pop DO [address] [place] [place] [address] documented as of this encounter Visit Diagnoses Not on filedocumented in this encounter Care Teams Team MemberRelationshipSpecialtyStart DateEnd Date Eliceo Beltran DO [address] [facility] [address] [place] [address] PCP - GeneralFamily Medicine02/14/24 Eliceo Beltran DO [address] [facility] [address] [place] [address] PCP - Medical [place] [employer]07/27/2412documented as of this encounter
--- OUTSIDE RECORDS SUMMARY | 2025-10-07 16:43 | XMS_ITS | CCD ---
Author Organization [facility] Care Team Providers Care Collar Folder Operator Name Role Phone Unavailable Unavailable POCOPAL [...] Primary Care Provider Denny Rodríguez MD Unavailable Kita PEDIATRIC CLINICAL NURSE SPECIALIST, [place] Unavailable Keesha PEDIATRIC CLINICAL NURSE SPECIALIST, Trista R Unavailable Denny Rodríguez MD Primary Care Provider [phone] CHARLENE RODRIGUEZ Referring Unavailable RODRÍGUEZ, DENNY SAHIL Primary Care Unavailable CHARLENE RODRIGUEZ Attending Unavailable RODRGÍUEZ, DENNY SAHIL Referring Unavailable RODRÍGUEZ, DENNY SAHIL [...] Unavailab Denny Ross MD Primary Care Provider [phone] Kiesha DO, Nathan Attending Provider [phone] Kiesha, Nathan Admitting Unavailable Kiesha, Nathan Attending Unavailable RodríguezDicksonDenny Primary Care Unavailable KIESHA, Nathan R Attending Unavailable KIESHA, Nathan R Referring Unavailable KIESHA, Nathan R Admitting Unavailable KIESHA, Nathan R Attending Unavailable KIESHA, Nathan R Admitting Unavailable Kaftan DO, Eliceo R Unavailable Yomaira BELTRAN Attending Unavailable KAFTAN, G KENNETH Admitting Unavailable KIESHA, Nathan R Attending Unavailable KIESHA, Nathan R Admitting Unavailable KIESHA, Nathan R Admitting Unavailable IKESHA, Nathan R Attending Unavailable KAFTAN, G KENNETH Admitting Unavailable KAFTAN, G KENNETH Attending Unavailable KAFTAN, G KENNETH Admitting Unavailable KAFTAN, G KENNETH Attending Unavailable Denny Rodríguez MD Primary Care Provider [phone] STEPH KEANE Attending Unavailable STEPH KEANE Admitting Unavailable KAFTAN, Yomaira COOPER Attending Unavailable KAFTAN, G KENNETH Admitting Unavailable KIESHA, Nathan R Consulting Unavailable KIESHA, DO Nathan R Consulting Unavailable KIESHA, Nathan R Consulting Unavailable KIESHA, Nathan R Attending Unavailable KIESHA, Nathan R Admitting Unavailable ELSAANA LAURA Attending Unavailable ELSA, ANA LAURA TYSON Admitting [...] Attending Unavailable NICK DENNY A Referring Unavailable RODRÍGUEZ, DENNY A Primary Care Unavailable Denny Rodríguez MD Unavailable Denny Rodríguez MD Primary Care Provider Denny Rodríguez MD Unavailable [phone] Kita PEDIATRIC CLINICAL NURSE SPECIALIST, [place] Unavailable Keesha PEDIATRIC CLINICAL NURSE SPECIALISTTrista Unavailable ELICEO BELTRAN Attending Unavailable KIESHA, NATHAN [...] [No Known Medication Allergies]Propensity to adverse reactions (disorder)[facility] Medications Current Medications MedicationDrug Class(es)DatesSig (Normalized)Sig (Original)acetaminophen 325 mg / butalbital 50 mg / caffeine 40 mg oral tablet (14 sources)Barbiturate, Central Nervous System Stimulant, MethylxanthineStart: 02-19-2024 End: 88-51-0036hepj 1 tablet by mouth every six hours for headache awqtthpvwz-phegkfjnbqcre-wpponajc 50-325-40 MG tablet Indications: Other migraine without status migrainosus, not intractable Take 1 tablet by mouth every 6 (six) hours if needed for headaches 20 tablet 02/19/2024 05/01/2025 Discontinuedatenolol 25 mg oral tablet (4 sources)beta-Adrenergic BlockerStart: 74-13-7621mwvy 1 mg by mouth once daily atenolol 25 mg Tab mg tab(s), Oral, Daily, Refills(s) 0 Start Date: 02/02/21 Status: OrderedStart: 08-06-2017 End: 28-46-0457rrjy 1 tablet by mouth once dailyAtenolol 50 mg tablet Discontinued 50 MG PO Daily August 06, 2017 12:00am October 16, 2018 3 :34pmbaclofen suppository 10 mg (CPD) (8 sources)Start: 12-29-6437rlrdrhmi suppository 10 mg (CPD) Indications: High- tone pelvic floor dysfunction , Chronic pelvic pain in female Unwrap and insert one suppository vaginally daily at bedtime. 30 Suppository 2 08/24/2023 Active Comment on above:Unwrap and insert one suppository vaginally daily at bedtime. Blood Glucose Monitoring Suppl (D-Care Glucometer) w/Device kit (20 sources)Start: 08-20-2025 End: 28-12-8290Uiudk Glucose Monitoring Suppl (D-Care Glucometer) w/Device kit Indications: Gestational diabetes mellitus (GDM), antepartum, gestational diabetes method of control unspecified ([facility]) , Elevated glucose tolerance test 1 kit Daily Use four times daily to check FSBS. In the morning prior to breakfast & 1 hour after each meal for a total of 4times daily. 1 kit 08/20/2025 08/20/2026 Activecephalexin 500 mg oral capsule (6 sources)Cephalosporin AntibacterialStart: 02-14-2021 End: 61-52-3202rxmv 1 capsule by mouth every twelve hoursKeflex 500 mg Cap 500 mg = 1 cap(s), Oral, q12hr, X 7 day(s), # 14 cap(s), Refills(s) 0 Start Date: 07/14/22 Stop Date: 07/21/22 Status: OrderedStart: 03-14-2019 End: 44-34-3654wxjz 1 capsule by mouth every twelve hoursCephalexin (Keflex) 500 mg capsule Discontinued 500 MG PO Q12H 14 7 March 14, 2019 12:00am August 04, 2019 8:18amcyclobenzaprine hydrochloride 5 mg oral tablet (20 sources)Muscle RelaxantStart: 12-30-2024 End: 29-09-7215xjdx 1 tablet by mouth in the morning, [...] 30 tablet 12/30/2024 01/09/2025 ActiveStart: 05-01-2023 End: 02-30-9456tzhg 1 tablet by mouth at bedtime as neededcyclobenzaprine (FLEXERIL) 5 mg tablet Indications: Dysmenorrhea , Chronic pelvic pain in female Take 1 tablet by mouth at bedtime as needed. 30 tablet 1 05/01/2023 ActiveStart: 25-12-2854nmtr 1 tablet by mouth three times daily as needed for muscle spasms cyclobenzaprine 10 mg Tab 10 mg = 1 tab(s), Oral, TID, PRN for spasm, # 30 tab(s), Refills(s) 0, Pharmacy: [facility] 858, 157, cm, 01/23/22 7:20:00 EST, Height/Length Dosing, 55, kg, 01/23/22 7:20:00 EST, Weight Dosing Start Date: 01/23/22 Status: Ordered Quantity: 30.0 Unit: tab(s) Repeat number: 1 Comment on above:Take 1 tablet by mouth at bedtime as needed.cyproheptadine hydrochloride 4 mg oral tablet (10 sources)Start: 03-13-2395jppd 1 mg by mouth three times dailycyproheptadine 4 mg Tab mg tab(s), Oral, TID, Refills(s) 0 Start Date: 02/02/21 Status: Ordered Repeat number: 1Dasetta oral tablet (1 source)Start: 57-79-6652jyrl 1 tablet by mouth once dailyDasetta oral tablet 1 tab(s), Oral, Daily, Refill(s) 0, control/menstrual regulation Start Date: 11/23/16 Status: Ordereddocusate sodium 100 mg oral capsule (7 sources)Start: 11-30-2022 End: 87-41-8699jrmu 1 capsule by mouth twice daily as needed for constipation Docusate Sodium (DSS) 100 MG capsule Take 1 capsule (100 mg) by mouth 2 times daily as needed for constipation (Vaginal Delivery) for up to 10 days. 60 capsule 0 12/01/2022 12/31/2022 ActiveStart: 07-14-2022 End: 88-09-4192unhf 1 capsule by mouth twice dailyColace 100 mg Cap 100 mg = 1 cap(s), Oral, BID, X 10 day(s), # 20 cap(s), Refills(s) 0 Start Date: 07/14/22 Stop Date: 07/24/22 Status: Orderedelagolix 150 mg oral tablet (13 sources)Start: 07-16-2023 End: 52-41-6346uvsm 1 tablet by mouth once dailyelagolix (ORILISSA) 150 mg tablet Take 1 tablet (150 mg) by mouth once daily. 30 tablet 11 07/16/2023 07/15/2024 ActiveStart: 27-95-8170ozbv 1 tablet by mouth twice dailyOrilissa 200 MG Oral Tablet take 1 tablet by mouth twice a day Quantity: 60 Refills: 4 Ordered: 09-Feb-2022 Kuldip DAY Charlene Start : 09-Feb-2022 ActiveComment on above:Take 1 tablet (150 mg) by mouth once daily.ergocalciferol 0.05 mg oral capsule (1 source)Provitamin D2 CompoundStart: 60-64-4949Iguicbb D2 2000 intl units oral capsule Oral, Daily, Refills(s) 0 Start Date: 02/02/21 Status: OrderedEthinyl Estradiol / Levonorgestrel (8 sources)Progestin, Estrogen, Progestin-containing Intrauterine DeviceStart: 04-03-2024 End: 56-77-1534ffxvjpwuuhdqqx-ethinyl estradiol (Jolessa) 0.15-0.03 MG tablet Indications: Uses control TAKE1 TABLET BY MOUTH EVERY MORNING 91 tablet 3 04/03/2024 08/18/2024 Discontinued (Other)Start: 55-42-5708qrzzgzuzbmchss- ethinyl estradiol (Jolessa) 0.15-0.03 MG tablet Indications: Uses control TAKE1 TABLET BY MOUTH EVERY MORNING 91 tablet 3 04/03/2024 ActiveStart: 01-10-2024 End: 40-29-9571qbpb 1 tablet by mouth in the morning, then take 1 tablet by mouth once dailylevonorgestrel-ethinyl estradiol (Jolessa) 0.15-0.03 MG tablet Indications: Uses control Take1 tablet by mouth in the morning. Take 1 tablet by mouth daily. 90 tablet 0 01/10/2024 04/09/2024 Activeethinyl estradiol 0.035 mg / norgestimate 0.25 mg oral tablet (4 sources)Progestin, EstrogenStart: 91-42-0931krgqblneuwyp-ethinyl estradiol (Ortho-Cyclen) 0.25-35 MG-MCG tablet 1 (one) time each day at the same time. 0 01/15/2023 ActiveStart: 01-43-2242eyrq 1 tablet by mouth once dailyNorgestimate- Ethinyl Estradiol 0.25-35 mg-mcg tablet Active 1 TAB PO Daily August 04, 2019 12:00amMono-Linyah 0.25-35 MG-MCG Oral for 28 Not-TakinghydrOXYzine hydrochloride 25 mg oral tablet (10 sources)AntihistamineStart: 26-91-5245dmkn 1 mg by mouth four times daily hydrOXYzine hydrochloride 25 mg Tab mg tab(s), Oral, QID, Refills(s) 0 Start Date: 02/02/21 Status: Ordered Repeat number: 1hyoscyamine sulfate 0.125 mg oral tablet (10 sources)Start: 54-77-4914jgmf 1 tablet by mouth every six hoursLevsin 0.125 mg SL Tab 0.125 mg = 1 tab(s), Oral, q6hr, # 20 tab(s), Refills(s) 1, Pharmacy: [facility], 161, cm, 03/10/21 11:21:00 EDT, Height/Length Dosing, 56, kg, 03/10/21 11:21:00 EDT, Weight Dosing Start Date: 03/10/21 Status: Ordered Quantity: 20.0 Unit: tab(s) Repeat number: 2ibuprofen 600 mg oral tablet (15 sources)Nonsteroidal Anti-inflammatory DrugStart: 01-23-2022 End: 95-61-3986sjlg 1 tablet by mouth every six hoursibuprofen 600 mg Tab 600 mg = 1 tab(s), Oral, q6hr, # 40 tab(s), Refills(s) 0, [facility]acy: [facility], 157, cm, 01/23/22 7:20:00 EST, Height/Length Dosing, 55, kg, 01/23/22 7:20:00 EST, WeightDosing Start Date: 01/23/22 Status: Ordered Quantity: 40.0 Unit: tab(s) Repeat number: 1insulin glargine-yfgn (Semglee-yfgn) 100 UNIT/ML pen (8 sources)Start: 33-05-6708hdgggjd glargine-yfgn (Semglee-yfgn) 100 UNIT/ML pen Inject 13 Units under the skin at bedtime 09/15/2025 Activeinsulin glargine-yfgn 100 unit/mL (3 mL) insulin pen (15 sources)Start: 44-84-4259kbfvngu glargine-yfgn 100 unit/mL (3 mL) insulin pen Indications: Essential hypertension affecting in third trimester Prime with 2 units and give 5 units every morning and 23 units subQ at bedtime. 15 mL 3 09/28/2025 ActiveStart: 09-21-2025 End: 55-58-1207msfamsd glargine-yfgn 100 unit/mL (3 mL) insulin pen Indications: Essential hypertension affecting in third trimester Prime with 2 units and give 5 units every morning and 20 units subQ at bedtime. 15 mL 3 09/21/2025 09/28/2025 DiscontinuedStart: 79-59-4356hembejh glargine-yfgn 100 unit/mL (3 mL) insulin pen Indications: Essential hypertension affecting in third trimester Prime with 2 units and give 5 units every morning and 20 units subQ at bedtime. 15 mL 3 09/21/2025 ActiveStart: 09-17-2025 End: 41-71-2638wkmbjwm glargine-yfgn 100 unit/mL (3 mL) insulin pen Indications: Essential hypertension affecting in third trimester Prime with 2 units and give 5 units every morning and 17 units subQ at bedtime. 15 mL 3 09/17/2025 09/21/2025 DiscontinuedStart: 62-47-1821xvzdcao glargine-yfgn 100 unit/mL (3 mL) insulin pen Indications: Essential hypertension affecting in third trimester Prime with 2 units and give 5 units every morning and 17 units subQ at bedtime. 15 mL 3 09/17/2025 ActiveStart: 09-15-2025 End: 21-63-0295wasqwli glargine-yfgn 100 unit/mL (3 mL) insulin pen Indications: Essential hypertension affecting in third trimester Prime with 2 units and give 17 units subQ at bedtime. 15 mL 3 09/15/2025 09/17/2025 Discontinued Start: 73-82-2183yjhxlir glargine-yfgn 100 unit/mL (3 mL) insulin pen Indications: Essential hypertension affecting in third trimester Prime with 2 units and give 17 units subQ at bedtime. 15 mL 3 09/15/2025 ActiveStart: 09-10-2025 End: 42-44-3221twsvtxd glargine-yfgn 100 unit/mL (3 mL) insulin pen Indications: Essential hypertension affecting in third trimester Prime with 2 units and give 13 units subQ at bedtime. 15 mL 3 09/10/2025 09/15/2025 Discontinued Start: 89-60-3053eskvfdf glargine-yfgn 100 unit/mL (3 mL) insulin pen Indications: Essential hypertension affecting in third trimester Prime with 2 units and give 13 units subQ at bedtime. 15 mL 3 09/10/2025 ActiveStart: 09-04-2025 End: 42-98-7184refrkp 2 [IU] by subcutaneous injection once, then inject 10 [IU] by subcutaneous injection at bedtimeinsulin glargine-yfgn 100 unit/mL (3 mL) insulin pen Indications: Diet controlled gestational diabetes mellitus (GDM) in second trimester , Essential hypertension affecting in third trimester Prime with 2 units and give 10 units subQ at bedtime. 15 mL 3 09/04/2025 09/10/2025 DiscontinuedStart: 41-63-5987rcxvsz 2 [IU] by subcutaneous injection once, then inject 10 [IU] by subcutaneous injection at bedtimeinsulin glargine- yfgn 100 unit/mL (3 mL) insulin pen Indications: Diet controlled gestational diabetes mellitus (GDM) in second trimester , Essential hypertension affecting in third trimester Prime with 2 units and give 10 units subQ at bedtime. 15 mL 3 09/04/2025 Activeisopropyl alcohol 0.7 ml/ml medicated pad (20 sources)Start: 17-76-9883Arhmuhr Swabs (Alcohol Prep Pad) 70 % pads Indications: Gestational diabetes mellitus (GDM), antepartum, gestational diabetes method of control unspecified ([facility]) , Elevated glucose tolerance testApply 1 Pad topically Daily Use four times daily to check FSBS. 150 each 3 08/20/2025 Activeiv contrast (will be provided with radiology test) (12 sources)Start: 15-86-6820pk contrast (will be provided with radiology test) [...] 200 mg oral tablet (20 sources)beta-Adrenergic BlockerStart: 60-39-2695entg 1 tablet by mouth in the morninglabetalol (Normodyne) 200 MG tablet Indications: Gestational Hypertension Take 1 tablet (200 mg) bymouth in the morning and 1 tablet (200 mg) before bedtime. 60 tablet 3 09/03/2025 ActiveStart: 07-30-2025 End: 52-85-9336qymq 1 tablet by mouth in the morninglabetalol (Normodyne) 100 MG tablet Indications: Hypertension, unspecified type Take 1 tablet (100 mg) by mouth in the morning and 1 tablet (100 mg) before bedtime. 60 tablet 5 07/30/2025 09/03/2025 DiscontinuedStart: 11-28-2022 End: 92-94-2769bqrxwyflz (Normodyne,Trandate) injection 20 mgStart: 11-28-2022 End: 45-71-6382upomkxiub (Normodyne,Trandate) injection 20 mgStart: 11-28-2022 End: 81-52-0604lteremhsg (Normodyne,Trandate) 5 MG/ML injection - Pyxis ADS Override Pulltake 2 tablets by mouth three times dailylabetaloL (NORMODYNE) 100 mg tablet Take 2 tablets (200 mg total) by mouth 3 (three) times a day. Active magnesium oxide 400 mg oral tablet (9 sources)Start: 05-01-2025 End: 94-70-2504ujto 1 tablet by mouth once dailymagnesium oxide (Mag-Ox) 400 MG tablet Indications: headache in first trimester ([facility])Take 1 tablet (400 mg) by mouth Daily 30 tablet 3 05/01/2025 05/31/2025 Activemeloxicam 15 mg oral tablet (15 sources)Nonsteroidal Anti-inflammatory DrugStart: 02-02-2021 End: 53-64-6465vvea 1 tablet by mouth once dailymeloxicam (Mobic) 15 MG tablet Indications: Chronic right shoulder pain , Scapular dyskinesis Take 1 tablet (15 mg) by mouth Daily 30 tablet 3 12/30/2024 05/01/2025 Htuutzvfewfh19 hr metoprolol succinate 25 mg extended release oral tablet (20 sources)beta-Adrenergic BlockerStart: 10-15-2024 End: 11-86-7339tmas 1 tablet by mouth once dailymetoprolol succinate XL (Toprol- XL) 25 MG 24 hr tablet Indications: Hypertension, unspecified type Take 1 tablet by mouth daily 90 tablet 1 12/30/2024 ActiveStart: 72-71-3191bhht 1 tablet by mouth once dailymetoprolol succinate XL (Toprol-XL) 25 MG 24 hr tablet Indications: Hypertension, unspecified type (CMS/HCC) Take 1 tablet by mouth daily 90 tablet 1 04/23/2024 ActiveStart: 86-73-4693vjww 1 tablet by mouth once dailymetoprolol succinate XL (Toprol-XL) 25 MG 24 hr tablet Indications: Hypertension, unspecified type (CMS/HCC) Take 1 tablet by mouth daily 90 tablet 1 10/23/2023 ActiveStart: 02-27-2023 End: 89-87-4248mbyoifaxby succinate ER (TOPROL XL) 25 mg 24 hr tabletnaproxen 500 mg delayed release oral tablet (20 sources)Nonsteroidal Anti-inflammatory DrugStart: 09-13-6508pjan 1 tablet by mouth twice dailynaproxen 500 mg oral enteric coated tablet 500 mg = 1 tab(s), Oral, BID, # 28 tab(s), Refills(s) 0 Start Date: 11/07/21 Status: Ordered Quantity: 28.0 Unit: tab(s) Repeat number: 1Start: 03-04-2021 End: 13-24-6969pjmi 1 tablet by mouth twice dailynaproxen 500 mg Tab 500 mg = 1 tab(s), Oral, BID, Take one tab by mouth two times a day, # 14 tab(s), Refills(s) 0, Pharmacy: [facility] 858, 157, cm, 03/04/21 7:22:00 EDT, Height/Length Dosing,52, kg, 03/04/21 7:22:00 EDT, Weight Dosing Start Date: 03/04/21 Status: Ordered Quantity: 14.0 Unit:tab(s) Repeat number: 1Start: 11-02-2018 End: 15-82-0796yybk 1 tablet by mouth twice daily as [...] (5 sources)Dihydropyridine Calcium Channel BlockerStart: 11-28-2022 End: 40-91-6582OHUPfnwhmr XL (Procardia XL) 30 MG 24 hr tablet Take 1 tablet (30 mg) by mouth daily. Do not crush,chew, or split. Do not start before December 02, 2022. 90 tablet 0 12/02/2022 12/02/2023 Activenorethindrone acetate 5 mg oral tablet (20 sources)Start: 05-17-2023 End: 92-65-4593aqeo 2 tablets by mouth once dailynorethindrone (AYGESTIN) 5 mg tablet Take 2 tablets by mouth once daily. 60 tablet 5 01/03/2024 07/01/2024 ActiveStart: 04-11-2023 End: 96-38-6179nakx 1 tablet by mouth once dailynorethindrone (AYGESTIN) 5 mg tablet Take 1 tablet by mouth once daily. 30 tablet 11 04/11/2023 ActiveStart: 52-24-6724zmhy 1 tablet by mouth once dailyNorethindrone Acetate 5 MG Oral Tablet TAKE 1 TABLET DAILY. Quantity: 1 Refills: 0 Ordered: 21-Jul-2020 Charlene Rodriguez DO Start : 21-Jul-2020 ActiveComment on above:Take 1 tablet by mouth once daily.Take 2 tablets by mouth once daily.PNV no.95-ferrous fumarate-FA () 28 mg iron- 800 mcg tablet (14 sources)take 1 tablet by mouth in the morningPNV no.95-ferrous fumarate-FA () 28 mg iron- 800 mcg tablet Take 1 tablet by mouth in the morning. Activepramoxine hydrochloride 10 mg/ml rectal foam (2 sources)Start: 07-14-2022 End: 91-46-2829pfot 15 g rectal route twice dailyProctoFoam 1% Foam apply, Rectal, BID for 7 day(s), 15 gm, Refill(s) 0 Start Date: 07/14/22 Stop Date: 07/21/22 Status: OrderedPrenatal Multivitamins with Vitamin B Complex, Vitamin C, Minerals and L-Methylfolate oral capsule (9 sources)Start: 41-06-5377Mkcihgff Multivitamins with Vitamin B Complex, Vitamin C, Minerals and L-Methylfolate oral capsule 1 cap(s), Oral, Daily, 30 cap(s), Refill(s) 0 Start Date: 07/14/22 Status: Ordered Quantity: 30.0 Unit: cap(s) Repeat number: 1Start: 00-58-6292Nsjpifdj Multivitamins with Vitamin B Complex, Vitamin C, Minerals and L-Methylfolate oral capsule 1 cap(s), Oral, Daily, 30 cap(s), Refill(s) 0 Start Date: 07/14/22 Status: OrderedPrenatal Vit-Fe Fumarate-FA ( Vitamin) 27-0.8 MG tablet (3 sources) Vit-Fe Fumarate-FA ( Vitamin) 27-0.8 MG tablet Take by mouth. 0 ActivePrenatal Vit-Fe Fumarate-FA ( Vitamins) 28-0.8 MG tablet (20 sources)Start: 05-01-2025 End: 57-69-1114glut 1 tablet by mouth once dailyPrenatal Vit-Fe Fumarate-FA ( Vitamins) 28-0.8 MG tablet Indications: , unspecified gestational age ([facility]) , Encounter for supervision of normal first in first trimester([facility]) Take 1 tablet by mouth Daily 30 tablet 11 05/01/2025 05/01/2026 ActiveStart: 05-01-2025 End: 40-58-1910arhc 1 tablet by mouth once dailyPrenatal Vit-Fe Fumarate-FA ( Vitamins) 28-0.8 MG tablet Indications: , unspecified gestational age , Encounter for supervision of normal first in first trimester Take 1 tablet by mouth Daily 30 tablet 11 05/01/2025 05/01/2026 Active SUMAtriptan 100 mg oral tablet (10 sources)Serotonin-1b and Serotonin-1d Receptor AgonistStart: 90-66-7609kkgf 1 mg by mouth onceImitrex 100 mg Tab mg tab(s), Oral, Once, Refills(s) 0 Start Date: 02/02/21 Status: Ordered Repeat number: 1Surgical Lubricant Jelly gel (12 sources)Start: 54-29-1814Hufchvrg Lubricant Jelly gel For MRI Female Pelvis, MRI department to provide. Administer intra-vaginal Surgilube immediately prior the MRI procedure (total amount to patient toleranace). 1 g 0 05/17/2023 Active Comment on above:For MRI Female Pelvis, MRI department to provide. Administer intra-vaginal Surgilube immediately prior the MRI procedure (total amount to patient toleranace).tiZANidine 4 mg oral tablet (3 sources)Central alpha-2 Adrenergic AgonistStart: 09-96-5769cheh 1 mg by mouth every eight hourstiZANidine 4 mg Tab mg tab(s), Oral, q8hr, Refills(s) 0 Start Date: 02/02/21 Status: OrderedtraMADol hydrochloride 50 mg oral tablet (10 sources)Opioid AgonistStart: 15-47-6839yyak 1 tablet by mouth every four hours as needed for paintraMADol (ULTRAM) 50 mg tablet Indications: Pelvic pain in female Take 1 tablet by mouth every 4 hours as needed for pain. 20 tablet 0 08/30/2023 ActiveStart: 10-36-0691vjvi 1 tablet by mouth every six hourstraMADol HCl - 50 MG Oral Tablet TAKE 1 TABLET Every 6 hours Quantity: 20 Refills: 0 Ordered: 18-Aug-2020 Charlene Rodriguez DO Start : 18-Aug-2020 ActiveStart: 03-12-2019 End: 05-88-8316cggf 1 tablet by mouth every four hours as needed for pain Tramadol 50 mg tablet Discontinued 50 MG PO Q4H as needed for pain 30 5 March 12, 2019 12:00am August 04, 2019 8:19amComment on above:Take 1 tablet by mouth every 4 hours as needed for pain.Vitamin D2 2000 intl units oral capsule (9 sources)Start: 22-67-4955odvn 1 capsule by mouth once dailyVitamin D2 2000 intl units oral capsule Oral, Daily, Refills(s) 0 Start Date: 02/02/21 Status: Ordered Repeat number: 1Start: 04-39-9457Hqwrvwx D2 2000 intl units oral capsule Oral, Daily, Refills(s) 0 Start Date: 02/02/21 Status: Ordered Completed/Discontinued Medications MedicationDrug Class(es)DatesSig (Normalized)Sig (Original)acetaminophen 325 mg oral tablet (4 sources)Start: 11-30-2022 End: 81-89-5332xrvq 1 tablet by mouth every six hours as needed for unml073 mg, Oral, Every 6 hours PRN, mild pain (1-3), Starting on Constance 11/30/22 at 0422 Give in addition to any other pain medication ordered at same time for any pain indication. Maximumdose of acetaminophen is 4000 mg from all sources in 24 hours. Alternate ibuprofen and acetaminophen every 3 hours.Start: 11-28-2022 End: 87-98-5146rfylpueyuawpm (Tylenol) tablet 1,000 mgacetaminophen 300 mg / codeine phosphate 30 mg oral tablet (4 sources)Opioid AgonistStart: 01-19-2025 End: 51-53-2279ncgr 1 tablet by mouth every six hours for painacetaminophen- codeine (Tylenol w/ Codeine #3) 300-30 MG tablet Indications: Pain in female genitalia on intercourse , Endometriosis Take 1 tablet by mouth every 6 (six) hours if needed for severe pain for up to 5 days 20 tablet 01/19/2025 01/24/2025 ExpiredStart: 07-22-2024 End: 78-57-9964uwky 1 tablet by mouth every six hours for painacetaminophen- codeine (Tylenol w/ Codeine #3) 300-30 MG tablet Indications: Dysmenorrhea, unspecified Take 1 tablet by mouth every 6 (six) hours if needed for severe pain for up to 5 days 20 tablet 07/22/2024 07/27/2024 Activeascorbic acid 500 mg oral tablet (5 sources)Vitamin CStart: 10-25-2018 End: 28-07-7247nhio 2 tablets by mouth in the morningASCORBIC ACID WITH ISAURO HIPS 500 MG tablet Take 2 tablets (1,000 mg total) by mouth in the morning.0 10/25/2018 09/04/2025 Discontinued ()aspirin 325 mg / butalbital 50 mg / caffeine 40 mg oral capsule (11 sources)Platelet Aggregation Inhibitor, Barbiturate, Nonsteroidal Anti- inflammatory Drug, Central Nervous System Stimulant, Methylxanthine End: 38-71-1187unrx 1 capsule by mouth every four hours as needed isctyxxjod-bbsvzkr-kymwahed (Fiorinal) 50-325-40 MG capsule Take 1 capsule [...] spray (2 sources)Standardized Chemical AllergenStart: 11-30-2022 End: 72-15-6524Warkwgr, As needed, pain, , Starting on Constance 11/30/22 at 0608, Apply to perineal area. Patient is capable and may self administer at bedside.betamethasone 3 mg/ml / betamethasone acetate 3 mg/ml injectable suspension (2 sources)CorticosteroidStart: 11-28-2022 End: 59-33-0580yrjzmhstodubi acetate-betamethasone sodium phosphate (Celestone) injection 12 mgcalcium chloride 0.0014 meq/ml / potassium chloride 0.004 meq/ml / sodium chloride 0.103 meq/ml / sodium lactate 0.028 meq/ml injectable solution (2 sources)Start: 11-28-2022 End: 82-99-9936lkcu 125 mL intravenously every gppt340 mL/hr, IntraVENous, Continuous, Starting on Sun11/28/22 at 0100, Pre-Deliverycetirizine hydrochloride 10 mg oral tablet (17 sources)Histamine-1 Receptor AntagonistStart: 06-09-2025 End: 08-39-0312fcmg 1 tablet by mouth once dailycetirizine (ZyrTEC ALLERGY) 10 MG tablet Indications: Allergy, sequela Take 1 tablet (10 mg) by mouth Daily 30 tablet 11 06/09/2025 07/15/2025 DiscontinuedchlordiazePOXIDE hydrochloride 5 mg / clidinium bromide 2.5 mg oral capsule (1 source)Anticholinergic, BenzodiazepineStart: 13-00-5733xwqa 1 capsule by mouth every eight hourschlordiazePOXIDE-Clidinium 5-2.5 MG 1 capsule before meals Orally Three times a day for 30 day(s) May, Not-Taking chlorhexidine gluconate 20 mg/ml medicated pad (2 sources)Start: 11-28-2022 End: 53-48-6139sqjmz 1 dose topically every six hoursTopical, Every 6 hours, First dose on Sun11/28/22 at 0100, Pre-Delivery Apply to the affected area.&a mp;nbsp; Clean entire abdomen.cholecalciferol 0.125 mg oral capsule (5 sources)Vitamin DStart: 10-25-2018 End: 22-24-1024giii 1 capsule by mouth in the morningcholecalciferol, vitamin D3, (VITAMIN D3) 5,000 units capsule Take 1 capsule (5,000 Units total) bymouth in the morning. 0 10/25/2018 09/04/2025 Discontinued ()desogestrel 0.15 mg / ethinyl estradiol 0.03 mg oral tablet (11 sources)Progestin, EstrogenStart: 07-22-2024 End: 41-89-9614fymltkuyvnt-ethinyl estradiol (Apri) 0.15-30 MG-MCG tablet Indications: Dysmenorrhea, unspecified Take 1 tablet by mouth Daily 21 tablet 12 10/20/2024 01/19/2025 Discontinued (Other)diphenhydrAMINE (BENADryl) injection 25 mg (2 sources)Start: 11-30-2022 End: 58-92-0576jwkt 25 mg intravenously every six hours as neededdiphenhydrAMINE (BENADryl) injection 25 mgNorethindrone-E.Estradiol-Iron (1 source)EstrogenStart: 10-17-2017 End: 61-91-4958ifmf 1 tablet by mouth once dailyNorethindrone-E.Estradiol-Iron (Lo Loestrin Fe) 1 mg-10 mcg (24)/10 mcg (2) tablet Discontinued 1 TAB PO Daily October 17, 2017 1:00am March 12, 2019 6:15amEthinyl Estradiol / Norethindrone (7 sources)EstrogenStart: 12-01-2018 End: 98-46-7346igdn 0.05 ug by mouth once in the eveningnorethindrone ac-eth estradiol (MICROGESTIN 1/20) 1-20 mg-mcg per tablet Take 1 tablet by mouth in t he evening. 0 12/01/2018 09/04/2025 Discontinued ()Start: 12-01-2018 take 0.05 ug by mouth once in the eveningnorethindrone ac-eth estradiol (MICROGESTIN 1/20) 1-20 mg-mcg per tablet Take 1 tablet by mouth in the evening. 0 12/01/2018 ActiveStart: 91-67-2391hwff 1 tablet by mouth once dailyDasetta oral tablet 1 tab(s), Oral, Daily, Refill(s) 0, control/menstrual regulation Start Date: 11/23/16 Status: Orderedfamotidine 20 mg oral tablet (2 sources)Histamine-2 Receptor AntagonistStart: 11-30-2022 End: 95-28-5007qtvc 20 mg by mouth twice daily as needed for gastroesophageal reflux xvbnoqm68 mg, Oral, 2 times daily PRN, heartburn, Starting on Sun11/30/22 at 0608, Renal dose per pharmacy for peptic ulcer prophylaxis.ferrous sulfate 325 mg oral tablet (8 sources)Start: 11-30-2022 End: 88-84-7045gipg 325 mg by mouth twice daily at xnuuryup682 mg, Oral, 2 times daily with meals, First dose on Sun11/30/22 at 0800, Start if Hgb le ss than 10. End: 75-28-3036lgap 1 tablet by mouth in the morningFerrous Sulfate (IRON PO) Take 1 tablet by mouth in the morning. 09/16/2025 Discontinuedtake 1 tablet by mouth in the morningFerrous Sulfate (IRON PO) Take 1 tablet by mouth in the morning. ActiveFLUoxetine 20 mg oral capsule (17 sources)Serotonin Reuptake InhibitorStart: 31-01-3257naxa 1 capsule by mouth once dailyFLUoxetine HCl - 20 MG Oral Capsule TAKE 1 CAPSULE Daily Quantity: 30 Refills: 11 Ordered: 02-Jun-2021 Charlene Rodriguez DO Start : 02-Jun-2021 Active Start: 11-02-2018 End: 97-94-4615pjse 1 capsule by mouth once dailyFluoxetine (Prozac) 20 mg capsule Discontinued 20 MG PO Daily November 02, 2018 1:00am August 04, 2019 8:19amtake 1 capsule by mouth once dailyFLUoxetine (PROZAC) 10 mg capsule Take 10 mg by mouth once daily. 0 ActiveComment on above:Take 10 mg by mouth once daily.fluticasone propionate 0.05 mg/actuat metered dose nasal spray (16 sources)CorticosteroidStart: 06-22-2025 End: 95-93-0411ihyx 1 spray(s) nasal route once dailyfluticasone (Flonase) 50 MCG/ACT nasal spray Indications: Sinusitis, unspecified chronicity, unspecified location Administer 1 spray into each nostril Daily Shake gently. Before first use, prime pump. After use, clean tip and replace cap. 16 g 12 06/22/2025 07/15/2025 Discontinued End: 44-66-3973vldq 1 spray(s) nasal route in the morningfluticasone (Flonase) 50 MCG/ACT nasal spray Administer 1 spray into affected nostril(s) in the morn ing. 09/16/2025 Discontinued End: 68-66-2919msdy 1 spray(s) nasal route in the morningfluticasone propionate (FLONASE) 50 mcg/actuation nasal spray Administer 1 spray into each nostril in the morning. 09/04/2025 Discontinued ()lanolin 1000 mg/ml topical cream (2 sources)Start: 11-30-2022 End: 92-04-0061Gntaauy, As needed, dry skin, nipple discomfort, Starting on Constance 11/30/22 at 0608, Apply to affected area.500 ml magnesium sulfate 40 mg/ml injection (4 sources)Start: 11-28-2022 End: 76-59-5296lgjtnylvp sulfate 20 GM/500ML infusionStart: 11-28-2022 End: 01-06-6208mkdtscyzo sulfate 20 GM/500ML infusion - Pyxis ADS Override Pull metoclopramide 10 mg oral tablet (2 sources)Dopamine-2 Receptor AntagonistStart: 87-53-4525xdpo 1 tablet by mouth every eight hoursReglan 10 MG 1 tablet before meals Orally tid for 30 day(s) March, Not-TakingmiSOPROStol 0.2 mg oral tablet (2 sources)Prostaglandin E1 AnalogStart: 11-30-2022 End: 02-22-3244qgHXQWMDpip (Cytotec) tablet 1,000 mcgStart: 11-30-2022 End: 94-16-9382lgDDALSSphw (Cytotec) tablet 1,000 mcgmiSOPROStol (Cytotec) split tablet 25 mcg (2 sources)Start: 11-28-2022 End: 79-85-5054ycar 1 tablet vaginal route every four hoursmiSOPROStol (Cytotec) split tablet 25 mcg1 ml morphine sulfate 4 mg/ml injection (4 sources)Opioid AgonistStart: 11-28-2022 End: 25-93-7841snveagjm sulfate (PF) injection 4 mgnitrofurantoin, macrocrystals 25 mg / nitrofurantoin, monohydrate 75 mg oral capsule (6 sources)Nitrofuran AntibacterialStart: 42-28-0248Lfbdtukezzphnc Monohyd Macro 100 MG Oral Capsule TAKE 1 CAPSULE Other Please take one capsule aftersexual intercourse to prevent UTI Quantity: 30 Refills: 11 Ordered: 01-Apr-2021 Teri Chau MD Start : 01-Apr-2021 Active2 ml ondansetron 2 mg/ml injection (12 sources)Serotonin-3 Receptor AntagonistStart: 11-29-2022 End: 74-72-5148czwo 4 mg intravenously every six hours as needed for nausea and vomitingondansetron (Zofran) injection 4 mgStart: 34-87-8691ydgu 1 tablet by mouth every six hours as needed for nauseaZofran 4 mg Tab 1 tab(s), Oral, q6hr, PRN Nausea, # 8, Refills(s) 0 Start Date: 07/14/22 Status: Ordered Quantity: 8.0 Unit: Repeat number: 1Start: 93-59-9269dsgi 1 tablet by mouth three times daily Zofran 4 MG 1 tablet Orally THREE TIMES A DAY for 30 day(s) May, Not-Takingondansetron ODT (Zofran-ODT) disintegrating tablet 4 mg (2 sources)Start: 11-30-2022 End: 86-78-7936zkkq 1 tablet by mouth every eight hours [...] for 1 hour. Then discontinue.Start: 11-29-2022 End: 26-50-9930pnvooalf (Pitocin) 30 units in 500 mL infusionStart: 11-29-2022 End: 10-62-2574meuiwkbl (Pitocin) 30 units in 500 mL infusionphenazopyridine hydrochloride 200 mg oral tablet (10 sources)Start: 82-71-7901vflc 1 tablet by mouth three times dailyPyridium [...] mg oral tablet (3 sources)Start: 09-10-2023 End: 24-18-0906kbyi 2 tablets by mouth twice daily, then [...] 09/10/2023 01/10/2024 Discontinued (Therapy completed)Start: 03-12-2019 End: 61-43-9327gpjn 3 tablets by mouth once daily at mealtimePrednisone 20 mg tablet Discontinued 60 MG PO Daily 9 March 12, 2019 12:00am August 04, 2019 8:18am administer with food or milkpromethazine hydrochloride 12.5 mg oral tablet (13 sources)PhenothiazineStart: 05-25-2025 End: 80-60-0150bcli 1 tablet by mouth every six hours [...] for nausea. 30 tablet 2 Discontinued End: 45-91-8235pbxf 12.5 mg rectal route every six hours as needed for nausea and vomitingpromethazine (PHENERGAN) 12.5 mg suppository Insert 1 suppository (12.5 mg total) into the rectum every 6 (six) hours as needed for nausea or vomiting. 09/04/2025 Discontinued ()rizatriptan 5 mg disintegrating oral tablet (5 sources)Serotonin-1b and Serotonin-1d Receptor AgonistStart: 10-24-2018 End: 25-08-6959ixrqrnsdkco BIT SHARPENER (MAXALT-BIT SHARPENER) 5 mg disintegrating tablet Dissolve 1 tablet (5 mg total) on tongue asneeded. 0 10/24/2018 09/04/2025 Discontinued ()5 ml sodium chloride 9 mg/ml injection (2 sources)Start: 11-28-2022 End: mL, IntraVENous, Every 12 hours scheduled (2 times per day), First dose on Sun11/28/22 at 0900, Pre-Deliveryvitamin b12 1 mg extended release oral tablet (5 sources)Vitamin W65Mcykg: 10-25-2018 End: 39-99-0021xdwq 1 tablet by mouth in the morningcyanocobalamin, vitamin B- 12, (VITAMIN B-12) 1,000 mcg tablet extended release Take 1 tablet (1 mg total) by mouth in the morning. 0 10/25/2018 09/04/2025 Discontinued ()witch yesi 500 mg/ml medicated pad (2 sources)Start: 11-30-2022 End: 60-23-8276Xdogflb, As needed, hemorrhoids, For perineal pain or discomfort, Starting on Sun11/30/22 at 0608, Apply to perineal area. Patient is capable and may self administer at bedside. Problems Active Problems Problem ClassificationProblemDateDocumented DateEpisodic/ChronicAllergic reactions (1 source)Allergic reaction; Translations: [Allergy, unspecified, initial encounter]62-27-5372ByqbwzfoPqowave on above:Problem List clean-up per request of Phys. EHR CmteAnxiety disorders (20 sources)Anxiety; Translations: [Anxiety state, unspecified]Onset: 10-08-2020 11-19-0019IkycqnlRlqxzmp on above:Problem List clean-up per request of Phys. EHR CmteCardiac dysrhythmias (20 sources)Paroxysmal tachycardia; Translations: [Paroxysmal tachycardia, unspecified]Onset: 176720-83-7731OfmfnhbWehqusesixtjy of surgical procedures or medical care (1 source)Postoperative retention of urine; Translations: [Other postprocedural complications and disorders of genitourinary system]97-10-2606AylasphkAfkrfgk on above:Problem List clean-up per request of Phys. EHR CmteDiabetes mellitus without complication (2 sources)Abnormal glucose tolerance test; Translations: [Other abnormal glucose]53-45-4012DgvghfyzTvucngil or abnormal glucose tolerance complicating ; childbirth; or the puerperium (20 sources)Gestational diabetes mellitus; Translations: [Gestational diabetes mellitus in , diet controlled]Onset: 412768-35-9718Gxyxopdn Endometriosis (20 sources)Endometriosis (clinical); Translations: [Endometriosis, site unspecified]Onset: 87-33-7199OlilhmcDzjnckzbj hypertension (20 sources)Hypertensive disorder; Translations: [Essential (primary) hypertension]Onset: 713111-73-4607ObnrkiePopunfzkuiufh symptoms and ill- defined conditions (20 sources)Microscopic hematuria; Translations: [Nocturia]89-13-3982Xarmvdmc Comment on above:Problem List clean-up per request of Phys. EHR CmteHeadache; including migraine (20 sources)Migraine; Translations: [Migraine, unspecified, not intractable, without status migrainosus]Onset: 937684-46-0208QqldyedKegfriw on above: Problem List clean-up per request of Phys. EHR CmteHeadache; including migraine (14 sources)Headache; Translations: [Headache, unspecified]Onset: 01-31-2023 61-49-4682IjnurhlwHdanvefkxtd (1 source)Hemorrhoids; Translations: [Unspecified hemorrhoids]Onset: 07-14-2022 EpisodicHypertension complicating ; childbirth and the puerperium (20 sources)Hypertension complicating ; Translations: [Unspecified maternal hypertension, unspecified trimester]Onset: hronic Hypertension complicating ; childbirth and the puerperium (16 sources)Severe pre-eclampsia complicating childbirth; Translations: [Severe pre-eclampsia, third trimester]Onset: 61-16-3854OwwvqykrZbtnt disorders and dislocations; trauma-related (20 sources)Disorder of left patellofemoral joint; Translations: [Patellofemoral disorders, left knee]Onset: 011731-85-9553NiqnbnvZstwk disorders and dislocations; trauma-related (20 sources)Disorder of right patellofemoral joint; Translations: [Patellofemoral disorders, right knee]Onset: hronic Menstrual disorders (20 sources)Dysmenorrhea; Translations: [Dysmenorrhea, unspecified]Onset: 713418-38-7364EomhpgcUiksvi and vomiting (1 source)Nausea and vomiting; Translations: [Nausea with vomiting, unspecified] EpisodicNonspecific chest pain (2 sources)Chest pain; Translations: [Chest pain, unspecified]10-83-2584Cqhurrwc Comment on above:Problem List clean-up per request of Phys. EHR CmteNutritional deficiencies (20 sources)Vitamin D deficiency; Translations: [Vitamin D deficiency, unspecified]Onset: 310101-81-0816JnfaijqHvtmz acquired deformities (20 sources)Scoliosis deformity of spine; Translations: [Scoliosis, unspecified] Onset: 219144-06-2703XasxephTlcjv bone disease and musculoskeletal deformities (10 sources)Disorder of xacn92-23-5663ErlwpixhKgfxsez on above:right shoulder right shoulderOther circulatory disease (1 source)Elevated blood-pressure reading without diagnosis of hypertension; Translations: [Elevated blood-pressure reading, without diagnosis of hypertension]Onset: 57-88-4110WmeexdrzRizhw complications of ; puerperium affecting management of mother (1 source)Delayed AND/OR secondary hemorrhage; Translations: [Delayed and secondary hemorrhage]Onset: 96-32-2690EpwtltqeFvwwg complications of (1 source)Finding related to ; Translations: [Other specified related conditions, unspecified trimester]Onset: 99-73-1135KwufwpcbPrsii complications of (1 source)Supervision of with other poor reproductive or obstetric history, unspecified trimester; Translations: [Supervision of with other poor reproductive or obstetric history, unspecified trimester]Onset: 78-19-4669IvyfoncxTatjq connective tissue disease (1 source)Diastasis recti; Translations: [Separation of muscle (nontraumatic), other site]EpisodicOther female genital disorders (10 sources)Abnormal uterine ajfzuvmq33-63-0918JutarhqVobok female genital disorders (1 source)Dyspareunia; Translations: [Other specified dyspareunia]ChronicOther female genital disorders (20 sources)Pain in female genitalia on intercourse; Translations: [Unspecified dyspareunia]Onset: 844080-15-7326VwqjhirZpfzq female genital disorders (1 source)Unspecified dyspareunia; Translations: [Unspecified dyspareunia]Onset: 99-72-1987FairaddGtmny female genital disorders (2 sources)Pelvic floor dysfunction; Translations: [Other specified conditions associated with female genital organs and menstrual cycle]EpisodicOther gastrointestinal disorders (18 sources)Constipation; Translations: [Constipation, unspecified]Onset: 689197-53-9926IxrcqaiaPxfqwjk on above:Problem List clean-up per request of Phys. EHR CmteOther gastrointestinal disorders (1 source)Constipation, unspecified; Translations: [Constipation, unspecified] Onset: 38-32-1393HaeuzkzzLkwyi hereditary and degenerative nervous system conditions (20 sources)Finding of scapular structure; Translations: [Other specified extrapyramidal and movement disorders]Onset: 092576-99-6341IbeunuuBamqw nervous system disorders (9 sources)Chronic pain; Translations: [Other chronic pain]Onset: 03-29-2023 70-07-3895VjpwedgWqumv nervous system disorders (1 source)Other chronic pain; Translations: [Chronic pelvic pain in female] Onset: 95-42-5240IaockqmDrhmf nervous system disorders (1 source)Paresthesia of left upper limb; Translations: [Paresthesia of skin] 20-35-2310SojvelcyJoxluat on above:Problem List clean-up per request of Phys. EHR CmteOther nervous system disorders (1 source)Tremor; Translations: [Tremor, unspecified]10-05-5744VjapkcvzBaaimui on above:Problem List clean-up per request of Phys. EHR CmteOther nutritional; endocrine; and metabolic disorders (20 sources)Body mass index 30+ - obesity; Translations: [Obesity, unspecified] Onset: 862175-33-6398SsedvieHykui and delivery including normal (18 sources); Translations: [Encounter for supervision of normal , unspecified, unspecified trimester]38-67-5268EqgpzrqxJkyil screening for suspected conditions (not mental disorders or infectious disease) (8 sources)Elevated liver enzymes level; Translations: [Other specified abnormal findings of blood chemistry]Onset: 04-18-2022 Resolved: 33-28-4692EfqdzoqkDkiuh upper respiratory disease (20 sources)Allergic rhinitis due to pollen; Translations: [Allergic rhinitis due to pollen]Onset: 805256-28-9200JeurjvcYfhdp upper respiratory infections (2 sources)Sinusitis; Translations: [Chronic sinusitis, unspecified]06-22-2025 ChronicResidual codes; unclassified (2 sources)Contraception ; Translations: [Other specified health status] 45-06-2687YiulyjweNxiabmup codes; unclassified (2 sources)Gestation period, 13 weeks; Translations: [13 weeks gestation of ]20-03-4782ZsairnnnMlsnkrrg codes; unclassified (2 sources)Gestation period, 17 weeks; Translations: [17 weeks gestation of ]44-58-1190YcowkgjdIpvwkppp codes; unclassified (2 sources)Gestation period, 20 weeks; Translations: [20 weeks gestation of ]66-14-5047QtdkdrnhJgqapabq codes; unclassified (2 sources)Gestation period, 24 weeks; Translations: [24 weeks gestation of ]63-03-3509SisuakjyFrsheikz codes; unclassified (2 sources)Gestation period, 26 weeks; Translations: [26 weeks gestation of ]23-19-0660ZpuaotobUkjsvidc codes; unclassified (2 sources)Gestation period, 27 weeks; Translations: [27 weeks gestation of ]67-87-5779FepzhrrnNczawcth codes; unclassified (1 source)Gestation period, 28 weeks; Translations: [28 weeks gestation of ]78-74-9708ZehhkkwvAbgtrljh codes; unclassified (1 source)28 weeks gestation of ; Translations: [28 weeks gestation of ]Onset: 80-93-6098MpzjxjqkAzvsgjxl codes; unclassified (2 sources)Gestation period, 29 weeks; Translations: [29 weeks gestation of ]13-40-4216LnszmtjkXhdlqxls codes; unclassified (2 sources)Gestation period, 31 weeks; Translations: [31 weeks gestation of ]40-09-2438ZzrxtzjyEzsmypacico; intervertebral disc disorders; other back problems (20 sources)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; Translations: [Other cervical disc displacement, unspecified cervical region] Onset: 108519-33-2680EtteovbWpqzahrhybxn (1 source)Gestational DiabetesOnset: 37-51-4683Lktsfwpwytnc (1 source)M consultOnset: 00-85-2648Fpwiefr tract infections (20 sources)Recurrent urinary tract infection; Translations: [Urinary tract infection, site not specified]Onset: 314329-57-0679Ojwrcpoi Past or Other Problems Problem ClassificationProblemDateDocumented DateEpisodic/ChronicAbdominal pain (20 sources)Epigastric pain; Translations: [Epigastric pain]Onset: 07-14-2022 EpisodicAcquired foot deformities (20 sources)Acquired equinus deformity of foot; Translations: [Other acquired deformities of unspecified foot]Onset: 044710-69-4884OszewakfUwhvggn dysrhythmias (20 sources)Tachycardia; Translations: [Tachycardia, unspecified]Onset: 248194-70-8632WoirjehaRkekulmhieg deficiencies (20 sources)Cobalamin deficiency; Translations: [Deficiency of other specified B group vitamins]Onset: 509601-01-0527QjctxpxlAhuhe connective tissue disease (20 sources)Posterior calcaneal exostosis; Translations: [Calcaneal spur, unspecified foot]Onset: 128989-37-4426PsfqbiyyAdzwh disorders of stomach and duodenum (20 sources)Gastroparesis syndrome; Translations: [Gastroparesis]Onset: 578305-02-0167IykkgfasTnxle female genital disorders (1 source)Other specified conditions associated with female genital organs and menstrual cycle; Translations:[High-tone pelvic floor dysfunction]Onset: 15-80-4638WmtywliuMvkgn female genital disorders (20 sources)Chronic pelvic pain of female; Translations: [Chronic pelvic pain in female]Onset: 357125-39-9294ShjldryxKupmh gastrointestinal disorders (20 sources)Swallowing painful; Translations: [Dysphagia, unspecified]Onset: 632635-24-0785AfgveuihCusas gastrointestinal disorders (20 sources)Diarrhea; Translations: [Diarrhea, unspecified]Onset: 03-24-2025 70-46-7587BmuqpwbtVapoe non-traumatic joint disorders (20 sources)Chronic pain of right upper limb; Translations: [Pain in right shoulder]Onset: 048804-04-2934StkiyvvwVkpsh nutritional; endocrine; and metabolic disorders (16 sources)Loss of appetite; Translations: [Anorexia]Onset: 05-27-2020 35-76-2281XbrjmmucNsktkzm (15 sources)Vasovagal syncope; Translations: [Syncope and collapse]Onset: 928272-47-8670JpjkwkntKnzpwqzmgcjc (9 sources)PregnancyOnset: 07-14-2022 Resolved: 921140-56-2150WXSWNHJ: Highlighted row has been ruled out! Unclassified (1 source)No known active cvicahvn40-95-8287 Results Test NameValueInterpretationReference RangeFacilityUS OB BPP W NON-STRESS on 35-65-8893Qli[place] [address] Ultrasound Report Signed Patient: JUHI GAMA MR#: [id number] : 1995 Acct:[id number] Age/Sex: 30 / F ADM Date: 10/03/25 Loc: US Attending Dr: Steph Keane Ordering Physician: Steph Keane Date of Service: 10/03/25 Procedure(s): US OB BPP w non-stress Accession Number(s): [id number] cc: Steph Keane; Yomaira BELTRAN [place] [id number] Patient Name: JUHI GAMA MRN: [id number] date: 1995 Sex: F Assigned Patient Location: US Current Patient Location: Accession/Order Number: [id number] Exam Date: 10/03/2025 10:53 Report Date: 10/03/2025 [...] the deepest vertical pocket measuring 5.79 cm. Biophysical profile: breathing limits: 2/2 Gross body movements: 2/2 tone: 2/2 Amniotic fluid volume: 2/2 US/US OB BPP w non-stress IMPRESSION: Biophysical profile score: 8/8 Impression dictated by: Will Faria M.D. 10/03/2025 11:36 AM Dictation Location: [place] [address] Electronically authenticated by: [id number] Y Date: 10/03/2025 11:36 Dictated By: Will Faria M.D. Signed By: 10/03/25 1138 DD/ 1136 TD/TT: Protocol Manager:ANTHONYHRadiology, Radiologist, - 10/03/2025 [place] [address] Ultrasound Report Signed Patient: JUHI GAMA MR#: [id number] : 1995 Acct:[id number] Age/Sex: 30 / F ADM Date: 10/03/25 Loc: US Attending Dr: Steph Keane Ordering Physician: Steph Keane Date of Service: 10/03/25 Procedure(s): US OB BPP w non-stress Accession Number(s): [id number] cc: Steph Keane; Yomaira BELTRAN [address] [address] Patient Name: JUHI GAMA MRN: [id number] date: 1995 Sex: F Assigned Patient Location: Current Patient Location: Accession/Order Number: [id number] Exam Date: 10/03/2025 10:53 Report Date: 10/03/2025 [...] the deepest vertical pocket measuring 5.79 cm. Biophysical profile: breathing limits: 2/2 Gross body movements: 2/2 tone: 2/2 Amniotic fluid volume: 2/2 US/US OB BPP w non-stress IMPRESSION: Biophysical profile score: 8/8 Impression dictated by: Will Faria M.D. 10/03/2025 11:36 AM Dictation Location: [place] [address] Electronically authenticated by: [id number] Y Date: 10/03/2025 11:36 Dictated By: Will Faria M.D. Signed By: 10/03/25 1138 DD/ 35 TD/TT: Protocol Manager: LANETTE HealthcareRadiology Study observation (narrative)NOMShalonda SmallUS OB BPP W NON-STRESSOrdered By: Radiologist Radiology on 85-89-2531[facility] Work Phone: Urinalysis macro (dipstick) panel (U)on 09-30-2025 Bilirubin, UANegativeNegative - 4(70) +++ mg/dLNOMS HealthcareBlood, UANegative Negative - 50 Teodoro/mcLNOMS HealthcareClarity, UAClearNOMS HealthcareColor, UA YellowNOMS HealthcareGlucose, UANegativeNegative - 2000(110) ++++ mg/dLNOMS HealthcareInterpretation and review of laboratory resultsNormalNOMS Healthcare Ketones, UANegativeNegative - 160(16) ++++ mg/dLNOMS HealthcareLeukocytes, UA NegativeNegative - 500+++ Robinson/mcLNOMS HealthcareNitrite, UANegativeNegative - PositiveNOMS HealthcarepH, UA6.05 - 9NOMS HealthcareProtein, UANegativeNegative - 2000(20) ++++ mg/dLNOMS HealthcareSpec Grav, UA1.0101 - 1.03N[facility]S Healthcare Urobilinogen, UA1.00.2 - 12 mg/dLNOMS HealthcareNOMS HealthcareUS OB BPP W NON-STRESSon 33-95-3372[place] [address] Ultrasound Report Signed Patient: JUHI GAMA MR#: [id number] : 1995 Acct:[id number] Age/Sex: 30 / F ADM Date: 09/26/25 Loc: US Attending Dr: Steph Keane Ordering Physician: Steph Keane Date of Service: 09/26/25 Procedure(s): US OB BPP w non-stress Accession Number(s): [id number] cc: Steph Keane; Yomaira BELTRAN [place] [address] Patient Name: JUHI GAMA MRN: [id number] date: 1995 Sex: F Assigned Patient Location: US Current Patient Location: Accession/Order Number: [id number] Exam Date: 09/26/2025 11:50 Report Date: 09/26/2025 14:50 At the request of: STEPH KEANE Procedure: US OB BPP w non-stress Ultrasound biophysical profile INDICATION: -induced hypertension COMPARISON: 09/19/2025 FINDINGS IMPRESSION: Cephalic position. 8 out of 8 score biophysical profile. LEONEL 11.6 cm. heart 129 bpm Impression dictated by: Chu Amaya M.D. 09/26/2025 2:50 PM Dictation Location: [facility]-29 Electronically authenticated by: [id number] Y Date: 09/26/2025 14:50 Dictated By: Chu Amaya M.D. Signed By: 09/26/251451 DD/ 49 TD/TT: Protocol Manager:Randell Wheat MD - 09/26/2025 [place] [address] Ultrasound Report Signed Patient: JUHI GAMA MR#: [id number] : 1995 Acct:[id number] Age/Sex: 30 / F ADM Date: 09/26/25 Loc: US Attending Dr: Steph Keane Ordering Physician: Steph Keane Date of Service: 09/26/25 Procedure(s): US OB BPP w non-stress Accession Number(s): [id number] cc: Steph Keane; Yomaira BELTRAN [place] [address] Patient Name: JUHI GAMA MRN: [facility]:[id number] date: 1995 Sex: F Assigned Patient Location: US Current Patient Location: Accession/Order Number: [id number] Exam Date: 09/26/2025 11:50 Report Date: 09/26/2025 14:50 At the request of: STEPH KEANE Procedure: US OB BPP w non-stress Ultrasound biophysical profile INDICATION: -induced hypertension COMPARISON: 09/19/2025 FINDINGS IMPRESSION: Cephalic position. 8 out of 8 score biophysical profile. LEONEL 11.6 cm. heart 129 bpm Impression dictated by: Chu Amaya M.D. 09/26/2025 2:50 PM Dictation Location: [facility]-29 Electronically authenticated by: [id number] Y Date: 09/26/2025 14:50 Dictated By: Chu Amaya M.D. Signed By: 09/26/251451 DD/ 49 TD/TT: Protocol Manager: LANETTE SmallRadiology Study observation (narrative)NOMS HealthcareUS OB BPP W NON-STRESSOrdered By: Radiologist Radiology on 37-08-8131PFOT Healthcare Work Phone: US OB BPP W NON-STRESSon [phone] [address] Ultrasound Report Signed Patient: JUHI GAMA MR#: [id number] : 1995 Acct:[id number] Age/Sex: 30 / F ADM Date: 09/19/25 Loc: US Attending Dr: Steph Keane Ordering Physician: Steph Keane Date of Service: 09/19/25 Procedure(s): US OB BPP w non-stress Accession Number(s): [id number] cc: Steph Keane; Yomaira BELTRAN [place] [address] Patient Name: JUHI GAMA MRN: [facility]:[id number] date: 1995 Sex: F Assigned Patient Location: [facility] Current Patient Location: Accession/Order Number: [id number] Exam Date: 09/19/2025 10:06 Report Date: 09/19/2025 [...] Morillo M.D. 09/19/2025 12:17 PM Dictation Location: [facility]AST[facility] CENTERInP[facility] Medical Electronically authenticated by: [id number] Y Date: 09/19/2025 12:17 Dictated By: Jp Morillo D.O. Signed By: 09/19/25 1219 DD/ 16 TD/TT: Protocol Manager:SATNAMadiologpearl, Radiologist, - 09/19/[address] [address] Ultrasound Report Signed Patient: JUHI GAMA MR#: [id number] : 1995 Acct:[id number] Age/Sex: 30 / F ADM Date: 09/19/25 Loc: US Attending Dr: Steph Keane Ordering Physician: Steph Keane Date of Service: 09/19/25 Procedure(s): US OB BPP w non-stress Accession Number(s): [id number] cc: Steph Keane; Yomaira BELTRAN [place] [phone] Patient Name: JUHI GAMA MRN: [facility]:[id number] date: 1995 Sex: F Assigned Patient Location: [facility] Current Patient Location: Accession/Order Number: [id number] Exam Date: 09/19/2025 10:06 Report Date: 09/19/2025 [...] Morillo M.D. 09/19/2025 12:17 PM Dictation Location: [employer] Electronically authenticated by: [id number] Y Date: 09/19/2025 12:17 Dictated By: Jp Morillo D.O. Signed By: 09/19/25 1219 DD/ 16 TD/TT: Protocol Manager: LANETTE HealthcareRadiology Study observation (narrative)NOMShalonda HealthcareUS OB BPP W NON-STRESSOrdered By: Radiologist Radiology on 58-31-6197DETB Healthcare Work Phone: Urinalysis macro (dipstick) panel (U)on 09-16-2025 Bilirubin, UANegativeNegative - 4(70) +++ mg/dLFreeman Heart InstituteBlood, UANegative Negative - 50 Teodoro/mcLVALLEY VIEW MED[facility]ENTER HealthcareClarity, UAClearNODC HealthcareColor, UA YellowNODC HealthcareGlucose, UANegativeNegative - 2000(110) ++++ mg/dLVALLEY VIEW MEDICAL CENTER HealthcareInterpretation and review of laboratory resultsNormalFreeman Heart Institute Ketones, UANegativeNegative - 160(16) ++++ mg/dLFreeman Heart InstituteLeukocytes, UA NegativeNegative - 500+++ Robinson/mcLVALLEY VIEW MEDICAL CENTER HealthcareNitrite, UANegativeNegative - PositiveNODC HealthcarepH, UA6.05 - 9NODC HealthcareProtein, UANegativeNegative - 2000(20) ++++ mg/dLFreeman Heart InstituteSpec Grav, UA1.0101 - 1.03[facility] Urobilinogen, UA1.00.2 - 12 mg/dLMetropolitan Saint Louis Psychiatric Center HealthcareALL BUNon 76-45-2634Kuml nitrogen [Mass/Vol]8 mg/dL7.0 - 18.0 mg/dLFreeman Heart InstituteALL URIC ACIDon 53-58-7313Gfekr [Mass/Vol]3.5 mg/dL2.6 - 6.0 mg/dLFreeman Heart InstituteCC ALT on 64-44-7011UWJ [Catalytic activity/Vol]40 U/L14 - 59 U/LNAudrain Medical CenterCCF AST on 36-39-8387PNN [Catalytic activity/Vol]24 U/L15 - 37 U/LNAudrain Medical CenterNo Panel Informationon 12-53-0394Rafegdktoctctt and review of laboratory results AbnormalNOSaint John's Regional Health CenterCLINISYNCNAudrain Medical CenterTB CREATININEon 09-03-2025 Creatinine [Mass/Vol]0.42 mg/dLLow0.55 - 1.02 mg/dLFreeman Heart InstituteGFR/1.73 sq M.predicted CKD-EPI (S/P/Bld) [Vol rate/Area]>60>=60 mL/min/1.73m 2NBarnes-Jewish Hospital EGFR-NON AF CYMRO>60>=60 mL/min/1.73m 2NBarnes-Jewish Hospital URINE T PROTEIN CREAT RATIOon 59-20-7027KSMVMGEHRQ URINE RANDOM<13.45Viv57.00 - 300.00 mg/dLNODC HealthcareTOTAL PROTEIN URINE RANDOM<6.0NINF - 11.9 mg/dLVALLEY VIEW MEDICAL CENTER HealthcareUrinalysis macro (dipstick) panel (U)on 32-22-5424Yvcllhwor, UA NegativeNegative - 4(70) +++ mg/dLVALLEY VIEW MEDICAL CENTER HealthcareBlood, UANegativeNegative - 50 Teodoro/mcLVALLEY VIEW MEDICAL [facility]ENTER HealthcareClarity, UAClearNODC HealthcareColor, UAYellowNODC HealthcareGlucose, UANegativeNegative - 2000(110) ++++ mg/dLVALLEY VIEW MEDICAL [facility]ENTER Healthcare Interpretation and review of laboratory resultsNormalVALLEY VIEW MEDICAL [facility]ENTER HealthcareKetones, UA NegativeNegative - 160(16) ++++ mg/dLVALLEY VIEW MEDICAL [facility]ENTER HealthcareLeukocytes, UANegative Negative - 500+++ Robinson/mcLVALLEY VIEW MEDICAL CENTER HealthcareNitrite, UANegativeNegative - Positive NOM HealthcarepH, UA6.55 - 9NODC HealthcareProtein, UANegativeNegative - 2000(20) ++++ mg/dLVALLEY VIEW MEDICAL CENTER HealthcareSpec Grav, UA1.0051 - 1.03NODC Healthcare Urobilinogen, UA2.00.2 - 12 mg/dLAtrium Health University CityTBH TOTAL PROTEIN 24 HOUR URINEon 31-27-7987Jkbzqksdidymgn and review of laboratory results AbnormalNODC HealthcareProtein (U) [Mass/Vol]22.6 mg/dLHighNINF - 11.9 mg/dLFreeman Heart InstituteTBH TOTAL PROTEIN 24 HOUR TYVFA429.6NINFNODC HealthcareTOTAL VOLUME 24 HOUR NLLDV270bW/24hrNODC HealthcareCLINISYNCNHILLCREST HOSPITAL CL[facility]EM[facility] HealthcareALL CBC WITH AUTO DIFFon 45-26-6618ZYFIXKQST ABSOLUTE AUTO0.1NOMS HealthcareBasophils/100 WBC (Bld)0.5 %0.2 - 2.0 %NOMS HealthcareEosinophils/100 WBC (Bld)1.4 %0.9 - 7.0 % NOMS HealthcareErythrocyte distribution width (RBC) [Ratio]13 %11.0 - 15.0 %NOMS HealthcareHematocrit (Bld) [Volume fraction]34.4 %Low36.0 - 48.0 %NOMS HealthcareHemoglobin (Bld) [Mass/Vol]11.3 g/dLLow12.0 - 16.0 g/dLFreeman Heart Institute IMMATURE GRANULOCYTES ABS AUTO0.59HighNOSaint John's Regional Health CenterImmature granulocytes/100 WBC (Bld)4.4 %High0.0 - 0.5 %[facility] InstituteInterpretation and review of laboratory resultsAbnormalNODC HealthcareLYMPHOCYTES ABSOLUTE AUTO2.4NOSaint John's Regional Health CenterLymphocytes/100 WBC (Bld)17.8 %Low20.5 - 60.0 %Research Psychiatric CenterH (RBC) [Entitic mass]29.4 pg26.7 - 34.0 pgNOThe Rehabilitation InstituteHC (RBC) [Mass/Vol] 32.8 g/dL29.9 - 35.2 g/dLResearch Psychiatric CenterV (RBC) [Entitic vol]89.4 fL81.0 - 99.0 fLFreeman Heart InstituteMONOCYTES ABSOLUTE AUTO1.1HighNODC HealthcareMonocytes/100 WBC (Bld)8.1 %1.7 - 12.0 %[facility] InstituteNEUTROPHILS ABSOLUTE JSTM1WxrhQZMB HealthcareNeutrophils/100 WBC (Bld)67.8 %43.0 - 75.0 %[facility] Heart InstitutePlatelet mean volume (Bld) [Entitic vol]9.6 fL9.5 - 13.5 fLFreeman Heart InstituteTB EO #0.2NOMS [facility] HospitalTB AET478XPLX [facility] RBC3.85LowNOSaint Mary's [facility] WBC13.3High Freeman [facility] InstituteCLINISYNCNBarnes-Jewish Hospital URINE T PROTEIN CREAT RATIOon 40-67-5381WPIQFTWVUU URINE RANDOM<13.72Qpc20.00 - 300.00 mg/dLFreeman Heart Institute Interpretation and review of laboratory resultsAbnormLehigh Valley Hospital - MuhlenbergTOTAL PROTEIN URINE RANDOM<6.0NINF - 11.9 mg/dLVanderbilt University Bill Wilkerson CenterYNTidelands Georgetown Memorial Hospital US OB BPP W NON-STRESSon 03-07-3856B[address] [address] Ultrasound Report Signed Patient: JUHI GAMA MR#: [id number] : 1995 Acct:[id number] Age/Sex: 30 / F ADM Date: Loc: [facility] 250-[address]: KUNAL HYATT M.D. Ordering Physician: Setph Keane Date of Service: 08/27/25 Procedure(s): US OB BPP w non-stress Accession Number(s): [id number] cc: Steph Keane; Yomaira BELTRAN [place] [phone] Patient Name: JUHI GAMA MRN: [facility]:[id number] date: 1995 Sex: F Assigned Patient Location: LAB Current Patient Location: LAB Accession/Order Number: [id number] Exam Date: 08/27/2025 17:37 Report Date: 08/27/2025 [...] Morillo M.D. 08/27/2025 6:02 PM Dictation Location: [place] [address] Electronically authenticated by: [id number] Y Date: 08/27/2025 18:02 Dictated By: Jp Morillo D.O. Signed By: 08/27/251804 DD/ 01 TD/TT: Protocol Manager:ANTHONYHRadiology, Radiologist, MD - 08/27/2025 [place] [address] Ultrasound Report Signed Patient: JUHI GAMA MR#: [id number] : 1995 Acct:[id number] Age/Sex: 30 / F ADM Date: Loc: [facility] 250-[address]: KUNAL HYATT M.D. Ordering Physician: Steph Keane Date of Service: 08/27/25 Procedure(s): US OB BPP w non-stress Accession Number(s): [id number] cc: Steph Keane; Yomaira BELTRAN [place] [phone] Patient Name: JUHI GAMA MRN: [facility]:[id number] date: 1995 Sex: F Assigned Patient Location: LAB Current Patient Location: LAB Accession/Order Number: [id number] Exam Date: 08/27/2025 17:37 Report Date: 08/27/2025 [...] ultrasound biophysical profile Impression dictated by: Jp Morilol M.D. 08/27/2025 6:02 PM Dictation Location: [place] [address] Electronically authenticated by: [id number] Y Date: 08/27/2025 18:02 Dictated By: Jp Morillo D.O. Signed By: 08/27/251804 DD/ 01 TD/TT: Protocol Manager: LANETTE HealthcareRadiology Study observation (narrative)NOMS HealthcareUS OB BPP W NON-STRESSOrdered By: Radiologist Radiology on 27-44-2741ECWT Healthcare Work Phone: Urinalysis macro (dipstick) panel (U)on 08-27-2025 Bilirubin, UANegativeNegative - 4(70) +++ mg/dLNOMS HealthcareBlood, UANegative Negative - 50 Teodoro/mcLNOMS HealthcareClarity, UAClearNOMS HealthcareColor, UA YellowNOMS HealthcareGlucose, UANegativeNegative - 2000(110) ++++ mg/dLNOMS HealthcareInterpretation and review of laboratory resultsNormalNODC Healthcare Ketones, UANegativeNegative - 160(16) ++++ mg/dLNOMS HealthcareLeukocytes, UA NegativeNegative - 500+++ Robinson/mcLNODC HealthcareNitrite, UANegativeNegative - PositiveNOMS HealthcarepH, UA65 - 9NODC HealthcareProtein, UANegativeNegative - 2000(20) ++++ mg/dLNODC HealthcareSpec Grav, UA1.0151 - 1.03NODC Healthcare Urobilinogen, UA2.00.2 - 12 mg/dLNODC HealthcareNOMS HealthcareURINE CULTURE, ROUTINEon 33-86-8833Dtxqjsqk identified Cx Nom (U) Urine Culture, Routine NOMS HealthcareBacteria identified Cx Nom (U)Mixed urogenital floraNOMS HealthcareBacteria identified Cx Nom (U)25,000-50,000 colony forming units per mLNOMS HealthcareBacteria identified Cx Nom (U)Performed at: - [facility] NOMS HealthcareBacteria identified Cx Nom (U)[address] [place], [place] [id number] HealthcareBacteria identified Cx Nom (U)Endoscopic Technician: Cm Sandoval PhD, Phone: [phone] HealthcareCLINISYNGRACE HOSPITAL Udtmvxkiwc4yo hr Glucose Tolerance 100 gm loadon 97-87-0067Tdjhmwm Tolerance Test [address] HospitalCapillary Glucose POCon 12-81-9944Zjhxxge [Mass/Vol]88 mg/oAWjtsbj88-29FaicbpMount Carmel Health SystemComment on above:Performed By: #### [id number] #### [facility] [address] [place], [place] [address]Aoh 1 Hron 64-99-0221Utpnpfa [Mass/Vol]152 mg/uGYaeurx55-003 [facility] SystemComment on above:Performed By: #### [id number] #### [facility] [address] [place], [place] [address]Osh 2 Hron 50-04-1135Udexgau [Mass/Vol]169 mg/xRIkzf57-710 [facility] SystemComment on above:Performed By: #### [id number] #### [facility] [address] [place], [place] [address]Isi 3 Hron 13-68-2456Ooemwdn [Mass/Vol]141 mg/rOPioe21-027 [facility] SystemComment on above:Performed By: #### [id number] #### [facility] [address] [place], [place] [address]Ekh Fastingon 55-50-4940Wtluzdv [Mass/Vol]82 mg/xBTcafjn61-62 [facility] SystemComment on above:Performed By: #### [id number] #### [facility] [address] [place], [place] [address]Tpxyfnf tolerance, 1 houron 26-64-9219Xdeijdy Tolerance Test 1 Lbdz743LieCmkjih Health SystemGlucose tolerance, 3 hourson 26-69-0224Snyfyvi Tolerance Test [address] HospitalGlucose, tolerance fastingon 49-59-1101Mipoyee Tolerance Test Yzbiqmw71SlmLilpohWilson Street HospitalNo Panel Informationon 79-42-0058TbnCavpyyWilson Street HospitalCBC w/ Auto Diffon 08-12-2025 Basophil Absolute0.1 E9/LNormal0.0-0.2Fisher [facility] Shock Trauma CenterComment on above:Performed By: #### [id number] #### [facility] [address] [place], [place] [address]Ydpptfokp/100 WBC (Bld)0.6 %Normal0.0-2.0[facility] Health SystemComment on above:Performed By: #### [id number] #### [facility] [address] [place], [place] [address]Hxm Absolute0.1 E9/LNormal0.0-0.5[facility] Comment on above:Performed By: #### [id number] #### [facility] [address] [place], [place] [address]Udsgcwlwwgv/100 WBC (Bld)1.0 %Normal0.0-8.0[facility] SystemComment on above:Performed By: #### [id number] #### [facility] [address] [place], [place] [address]Rckjyhrwfpd distribution width (RBC) [Ratio]12.9 %Normal 10.9-14.2FMercy Health St. Charles HospitalComment on above:Performed By: #### [id number] #### [facility] [address] [place] [address]Tigsfjjart (Bld) [Volume fraction]33.1 %Low34.0-46.0[facility] Health SystemComment on above:Performed By: #### [id number] #### [facility] [address] [place] [address]Uhgiptjryk (Bld) [Mass/Vol]11.4 g/dLLow12.0-16.0[facility] Health SystemComment on above:Performed By: #### [id number] #### [facility] [address] [place] [address]Gxqew Absolute2.0 E9/LNormal1.0-4.0[facility] Comment on above:Performed By: #### [id number] #### [facility] [address] [place] [address]Fqhaeogxgsb/100 WBC (Bld)19.6 %Vodvsa61.0-50.0[facility] SystemComment on above:Performed By: #### [id number] #### [facility] [address] [place] [address]XGT (RBC) [Entitic mass]29.9 edNknbeh29.0-34.0[facility] SystemComment on above:Performed By: #### [id number] #### [facility] [address] [place] [address]KAVW (RBC) [Mass/Vol]34.4 g/dENnrfhe22.4-36.0[facility] SystemComment on above:Performed By: #### [id number] #### [facility] [address] [place] [address]IKQ (RBC) [Entitic vol]86.7 oBTqbjpo96.0-100.0[facility] SystemComment on above:Performed By: #### [id number] #### [facility] [address] [place], [place] [address]Axzp Absolute0.5 E9/LNormal0.2-1.0[facility] Comment on above:Performed By: #### [id number] #### [facility] [address] [place], [place] [address]Narcbmuaw/100 WBC (Bld)4.6 %Normal4.0-14.0[facility] Health SystemComment on above:Performed By: #### [id number] #### [facility] [address] [place], [place] [address]Xvpaza Absolute7.5 E9/LNormal2.0-7.5FMercy Health St. Charles Hospital Comment on above:Performed By: #### [id number] #### [facility] [address] [place] [address]Twfoga Auto74.2 %Tevqag11.0-75.0[facility] Comment on above:Performed By: #### [id number] #### [facility] [address] [place], [place] [address]Lwilqwli058.0 E9/WRnrrvf187.0-500.0[facility] Comment on above:Performed By: #### [id number] #### [facility] [address] [place], [place] [address]Yddqhbbo mean volume (Bld) [Entitic vol]8.1 fLNormal6.4-10.8 [facility] SystemComment on above:Performed By: #### [id number] #### [facility] [address] [place], [place] [address]SOZ1.8 E12/LLow4.3-5.9[facility] Health SystemComment on above:Performed By: #### [id number] #### [facility] [address] [place], [place] [address]RII81.1 E9/LNormal4.0-11.0[facility] Health SystemComment on above:Performed By: #### [id number] #### [facility] [address] [place], [place] [address]Jvemgibpjg 78-68-3323Bgfmyaht Lvl7 ng/mMRvq53-210QqumigMount Carmel Health SystemComment on above:Performed By: #### [id number] #### [facility] [address] [place], [place] [address]Iqfsychk 72-23-7477Zklnbw Lvl>22.3Normal>=6.7FMercy Health St. Charles HospitalComment on above:Performed By: #### [id number] #### [facility] [address] [place], [place] [address]Yteu Scr Glu 1 Hron 63-92-0094Ikrfmht [Mass/Vol]155 mg/dLHigh 55-140[facility] Health SystemComment on above:Performed By: #### [id number] #### [facility] [address] [place], [place] [address]Jhzudaj 1h post 50g loadon 86-57-1287Xpbwhme, 1 hr PP 50GM dose 155ProMedica Health SystemIronon 05-88-5687Srld30 microgram/xDWmljdd81-221SfrxvkMount Carmel Health SystemComment on above:Performed By: #### [id number] #### [facility] [address] [place], [place] [address]Dh Panel Informationon 99-89-6025EGZI HealthcareTIBC Calculated on 23-89-5668LINL829 microgram/hQQwcv517-906DjgaupMount Carmel Health SystemComment on above:Performed By: #### [id number] #### [facility] [address] [place], [place] [address]Csxvzrkqqxh [Mass/Vol]455 mg/pPSvyb039-754NnaynjMount Carmel Health SystemComment on above:Performed By: #### [id number] #### [facility] [address] [place], [place] [address]BG OB LIMITED 1+ FETUSESon 79-77-4202VC OB LIMITED 1+ FETUSES FINDINGS: Single viable [...] Delivery: 11/28/25 Gestational Age as of 07/21/2025: 92l5bBrrbypdvuw macro (dipstick) panel (U)on 49-27-5267Hvnjkelam, UANegativeNegative - 4(70) +++ mg/dLNOMS HealthcareBlood, UANegativeNegative [...] HealthcareUrobilinogen, UA1.00.2 - 12 mg/dLNOMS HealthcareVit B12on 05-81-1837Pnqropueb (Vitamin B12) [Mass/Vol]205 pg/cBCdvugu41-7584Jcfrql R Adams Cowley Shock Trauma CenterComment on above:Performed By: #### [id number] #### [facility] [address] [place], [place] [address]QTU w/ Auto Diffon 66-12-6284Raavmqit Absolute0.0 E9/LNormal 0.0-0.2Fisher [facility] Shock Trauma CenterComment on above:Performed By: #### [id number] #### [facility] [address] [place], [place] [address]Bokmvauoh/100 WBC (Bld)0.2 %Normal0.0-2.0Fish Ada Medical CenterComment on above:Performed By: #### [id number] #### [facility] [address] [place] [address]Qpb Absolute0.1 E9/LNormal0.0-0.5FMercy Health St. Charles Hospital Comment on above:Performed By: #### [id number] #### [facility] [address] [place] [address]Ituurogtkxa/100 WBC (Bld)0.5 %Normal0.0-8.0[facility] Health SystemComment on above:Performed By: #### [id number] #### [facility] [address] [place] [address]Jlzyhnpetqa distribution width (RBC) [Ratio]13.0 %Normal 10.9-14.2FMercy Health St. Charles HospitalComment on above:Performed By: #### [id number] #### [facility] [address] [place] [address]Ounvxvzlto (Bld) [Volume fraction]31.9 %Low34.0-46.0[facility] Health SystemComment on above:Performed By: #### [id number] #### [facility] [address] [place] [address]Efscroytfx (Bld) [Mass/Vol]11.1 g/dLLow12.0-16.0[facility] Health SystemComment on above:Performed By: #### [id number] #### [facility] [address] [place] [address]Gtomt Absolute2.1 E9/LNormal1.0-4.0[facility] Comment on above:Performed By: #### [id number] #### [facility] [address] [place] [address]Myxcyfbbcui/100 WBC (Bld)16.2 %Nsymrx80.0-50.0[facility] SystemComment on above:Performed By: #### [id number] #### [facility] [address] [place] [address]ADJ (RBC) [Entitic mass]29.9 oqGpwcwm57.0-34.0[facility] SystemComment on above:Performed By: #### [id number] #### [facility] [address] [place] [address]PXNY (RBC) [Mass/Vol]34.8 g/aGJdetof81.4-36.0[facility] SystemComment on above:Performed By: #### [id number] #### [facility] [address] [place] [address]OLD (RBC) [Entitic vol]85.7 wOUrzpmw85.0-100.0[facility] Health SystemComment on above:Performed By: #### [id number] #### [facility] [address] [place] [address]Uyme Absolute0.9 E9/LNormal0.2-1.0[facility] Comment on above:Performed By: #### [id number] #### [facility] [address] [place] [address]Cendcdsgw/100 WBC (Bld)7.0 %Normal4.0-14.0[facility] Health SystemComment on above:Performed By: #### [id number] #### [facility] [address] [place] [address]Hffzpy Absolute9.7 E9/LHigh2.0-7.5FMercy Health St. Charles Hospital Comment on above:Performed By: #### [id number] #### [facility] [address] [place], [place] [address]Ntiwpg Auto76.1 %High36.0-75.0[facility] Comment on above:Performed By: #### [id number] #### [facility] [address] [place] [address]Drntgmda381.0 E9/GQshjss180.0-500.0[facility] Comment on above:Performed By: #### [id number] #### [facility] [address] [place], [place] [address]Jgsmjbed mean volume (Bld) [Entitic vol]8.0 fLNormal6.4-10.8 [facility] SystemComment on above:Performed By: #### [id number] #### [facility] [address] [place], [place] [address]UNW8.7 E12/LLow4.3-5.9[facility] SystemComment on above:Performed By: #### [id number] #### [facility] [address] [place], [place] [address]LLE02.8 E9/LHigh4.0-11.0[facility] SystemComment on above:Performed By: #### [id number] #### [facility] [address] [place], [place] [address]PGApm 40-83-0913JP3 [Moles/Vol]20 mmol/VRlv10-19UaycuiMount Carmel Health SystemComment on above:Performed By: #### [id number] #### [facility] [address] [place], [place] [address]Xcags gap [Moles/Vol]16 mmol/LNormal6-16[facility] SystemComment on above:Performed By: #### [id number] #### [facility] [address] [place] [address] 78833Ygykdkw [Mass/Vol]3.8 g/dLNormal3.3-5.0[facility] Health SystemComment on above:Performed By: #### [id number] #### [facility] [address] [place], [place] [address]Katryoy/Globulin [Mass ratio]1.3 {ratio}Normal1.1-2.2FMercy Health St. Charles HospitalComment on above:Performed By: #### [id number] #### [facility] [address] [place], [place] [address]Wbt Phos78 Int._Unit/NFxbqka43-04BvsgzmMount Carmel Health System Comment on above:Performed By: #### [id number] #### [facility] [address] [place], [place] [address]DWZ63 Int._Unit/LNormal6-46[facility] Health SystemComment on above:Performed By: #### [id number] #### [facility] [address] [place], [place] [address]EXI76 Int._Unit/LNormal5-43[facility] Health SystemComment on above:Performed By: #### [id number] #### [facility] [address] [place], [place] [address]Mzzz Total0.8 mg/dLNormal0.0-1.1FMercy Health St. Charles Hospital Comment on above:Performed By: #### [id number] #### [facility] [address] [place] [address] 21669TQU/Creat Ratio18 No QbqvpItkzab59-13IsgsarMount Carmel Health SystemComment on above:Performed By: #### [id number] #### [facility] [address] [place], [place] [address]Qvbcdjf [Mass/Vol]8.9 mg/dLNormal8.9-11.1FMercy Health St. Charles HospitalComment on above:Performed By: #### [id number] #### [facility] [address] [place] [address] 14209Gpqbcvko [Moles/Vol]104 mmol/OIilivn684-587YrdvhqMount Carmel Health SystemComment on above:Performed By: #### [id number] #### [facility] [address], [place] [address]Zdwymtwqbt [Mass/Vol]0.6 mg/dLNormal0.5-1.3FMercy Health St. Charles HospitalComment on above:Performed By: #### [id number] #### [facility] [address] [place], [place] [address]Fjsfngpz (S) [Mass/Vol]3.0 g/dLNormal1.4-4.0[facility] SystemComment on above:Performed By: #### [id number] #### [facility] [address] [place], [place] [address]Maaelxy [Mass/Vol]92 mg/dNKucpyy24-224UlthrtMount Carmel Health SystemComment on above:Performed By: #### [id number] #### [facility] [address] [place], [place] [address]Zdbsyfmqw [Moles/Vol]3.7 mmol/LNormal3.5-5.3FMercy Health St. Charles HospitalComment on above:Performed By: #### [id number] #### [facility] [address] [place], [place] [address]Iwlrbaw [Mass/Vol]6.8 g/dLNormal6.0-7.8[facility] Health SystemComment on above:Performed By: #### [id number] #### [facility] [address] [place] [address] 52[address]Rnvfks [Moles/Vol]136 mmol/YIvarco984-345KmvfsgMount Carmel Health SystemComment on above:Performed By: #### [id number] #### [facility] [address] [place] [address]Ojxf nitrogen [Mass/Vol]11 mg/dLNormal5-21[facility] Health SystemComment on above:Performed By: #### [id number] #### [facility] [address] [place], [place] [address]Ldmfo Panelon 83-98-2203Vnaxmpsnvhh [Mass/Vol]239 mg/dLHigh 120-200[facility] Health SystemComment on above:Performed By: #### [id number] #### [facility] [address] [place], [place] [address]Jbyimqjjcpc in HDL [Mass/Vol]88 mg/dLInvalid Interpretation CodeMount Carmel Health SystemComment on above:Result Comment: '>= 60 LOW RISK' '<= 40 HIGH RISK'Performed By: #### [id number] #### [facility] [address] [place], [place] [address]Uahjmdyggmq in LDL [Mass/Vol]144 mg/dLHigh<=129[facility] Health SystemComment on above:Performed By: #### [id number] #### [facility] [address] [place], [place] [address]Ijqgixxinnm in VLDL [Mass/Vol]40 mg/dLNormal7-40[facility] Health SystemComment on above:Performed By: #### [id number] #### [facility] [address] [place], [place] [address]Fhwhsvpmnixr [Mass/Vol]202 mg/dLHigh<=149[facility] Health SystemComment on above:Performed By: #### [id number] #### [facility] [address], [place] [address]tLRIdj 04-71-7481tISR395 mL/min/1.73 t9Hpqcyg>=59[facility] Health SystemComment on above:Performed By: #### [id number] #### [facility] [address] [place], [place] [address]LWD, SERUM, OPEN SPINA BIFIDAon 16-64-8853UGT MOM0.95.[facility]OMS HealthcareAFP VALUE59.2 ng/mL.NOMS HealthcareCOMMENT:Comment.[facility] Healthcare Comment on above:Amy Ramos, Ph.D., [facility] Director References: Available Upon Request. Multiples Of Median Cutoffs For AFP Elevations Hsieh 2.5 Black 2.8 IDD 2.0 Twins 4.5 Abbreviation Definitions IDD - Insulin Dep Diabetes OSBR - Open Spina Bifida Risk For further inquiries contact [facility] at [phone]. This test was developed and its performance characteristics determined by [employer]. It has not been cleared or approved by the Food and Drug Administration. Performed at: [facility] Critical Diagnosticssaint [facility] [address]P [address] [facility], [place], [place] [id number] Endoscopic Technician: Dona Justin [facility], Phone: [phone] GEST. AGE ON COLLECTION DATE20.6. weeksNOMS HealthcareGESTAT. AGE BASED ONLMP. NOMS HealthcareComment on above:Recalculations are not recommended when gestational dating by LMP and ultrasound are within 10 days. INSULIN DEP DIABETESNo.NOMS HealthcareINTERPRETATIONComment.[facility] Comment on above:Interpretation: Screen Negative This result [...] Customer Services to discuss available options. The [place] [employer] recommends amniocentesis be offered to women age 35 and older. MATERNAL AGE AT EDD30.7. yrVAL[facility] HealthcareMULTIPLE GESTATIONNo.[facility] OSBR RISK 1 [id number].[facility] InstituteRACECaucasian.[facility] InstituteRESULTSReport. [facility] InstituteTEST RESULTS:Negative.[facility] InstitutePgbdvhrrpcHQJXEQ230. lbCoulee Medical Center HealthcarePREGNANCY N N LMP [id number] 2 17 N 1 Y 146 N N N N N White/ CLINISYNCNODC HealthcareUS OB 14+ WEEKS ANATOMY SCANon 83-22-9912ZW OB 14+ WEEKS ANATOMY SCANEXAM: US OB [...] II, MD, PHD at 16-Jul-2025 08:07:[address]-[place] TeleradiologyNormalNot AvailableComment on above:Order Comment: US OB ANATOMY SINGLE W US OB CERVICAL LENGTH Estimated Date of Delivery: 11/28/25 Gestational Age as of 06/22/2025: 29h3kYjohajacdj macro (dipstick) panel (U)on 89-50-1234Whhtdxerx, UANegativeNegative - 4(70) +++ mg/dLNOMS HealthcareBlood, UANegativeNegative - 50 Teodoro/mcLNODC HealthcareClarity, UAClearNOMS Healthcare Color, UAYellowNOMS HealthcareGlucose, UANegativeNegative - 2000(110) ++++ mg/dL [facility] HealthcareInterpretation and review of laboratory resultsNormalNOMS HealthcareKetones, UANegativeNegative - 160(16) ++++ mg/dLNOMS Healthcare Leukocytes, UANegativeNegative - 500+++ Robinson/mcLNOMS HealthcareNitrite, UA NegativeNegative - PositiveNOMS HealthcarepH, UA65 - 9NOMS HealthcareProtein, UA NegativeNegative - 2000(20) ++++ mg/dLNOMS HealthcareSpec Grav, UA1.011 - 1.03 NOMS HealthcareUrobilinogen, UA1.00.2 - 12 mg/dLNOMS HealthcareNOMS Healthcare RECURRENT VAGINITIS (HTRX)on 87-69-5172QCBDIECWZ BHAONCI7WENG Healthcare ATOPOBIUM VAGINAENot detectedNOMS HealthcareBVAB 2,3 (BACTERIAL VAGINOSIS ASSOCIATED BACTERIA 2, 3); MOBILUNCUS DPZ4ZDAG HealthcareBVAB 2,3 (BACTERIAL VAGINOSIS ASSOCIATED BACTERIA 2, 3); MOBILUNCUS SPPNot detectedNOMS Healthcare RADHA ALBICANS, PARAPSILOSIS, AGQXAJAFYE4JTVB HealthcareCANDIDA ALBICANS, PARAPSILOSIS, TROPICALISNot detectedNOMS HealthcareCANDIDA VXAYYKLK7CZNN HealthcareCANDIDA GLABRATANot detectedNOMS HealthcareCANDIDA ZMNQBP9LRVJ HealthcareCANDIDA KRUSEINot detectedNOMS HealthcareCHLAMYDIA MECRSTQSBZS5MQUQ HealthcareCHLAMYDIA TRACHOMATISNot detectedNOMS HealthcareGARDNERELLA VAGINALIS 17.967AbnormalNOMS HealthcareGARDNERELLA VAGINALISDetectedAbnormalNOMS HealthcareInterpretation and review of laboratory resultsAbnormalNOMS Healthcare MEGASPHAERA (TYPES 1, 2)0NOMS HealthcareMEGASPHAERA (TYPES 1, 2)Not detectedNOMS HealthcareMYCOPLASMA OKEANWUXNK9CPRZ HealthcareMYCOPLASMA GENITALIUMNot detectedNOMS HealthcareNEISSERIA GZUEQGUFJLX8YPBP HealthcareNEISSERIA GONORRHOEAENot detectedNOMS HealthcareTRICHOMONAS MTLZIDEJU2USOR Healthcare TRICHOMONAS VAGINALISNot detectedNOMS HealthcareNOMS HealthcareUrinalysis macro (dipstick) panel (U)on 18-16-3540Drzazljlg, UANegativeNegative - 4(70) +++ mg/dL N[facility]S HealthcareBlood, [...] mg/dLNOMS HealthcareNOMS HealthcareUrinalysis macro (dipstick) panel (U)on 12-75-6627Ffwyjbzka, UA NegativeNegative - 4(70) +++ mg/dLNOMS HealthcareBlood, UANegativeNegative - 50 Teodoro/mcLNOMS HealthcareClarity, UAClearNOMS HealthcareColor, UAYellowNOMS HealthcareGlucose, UANegativeNegative - 2000(110) ++++ mg/dLNODC Healthcare Interpretation and review of laboratory resultsNormalNODC HealthcareKetones, UA NegativeNegative - 160(16) ++++ mg/dLVALLEY VIEW [facility]ICAL [facility]ENTER HealthcareLeukocytes, UAPositive Negative - 500+++ Robinson/mcLVALLEY VIEW MEDICAL CENTER HealthcareComment on above:smallNitrite, UA NegativeNegative - PositiveNOMS HealthcarepH, UA6.55 - 9NOMS HealthcareProtein, UANegativeNegative - 2000(20) ++++ mg/dLNOMS HealthcareSpec Grav, UA1.011 - 1.03 NOMS HealthcareUrobilinogen, UA0.20.2 - 12 mg/dLNOSaint John's Regional Health CenterNODC Healthcare BOX TESTon 53-74-9323TBQ TEST SENT OUTunityNODC RfxvfghswcKNX1mtijgIWMT QxouanwodoUDD32/08/20NODC HealthcareUNITY BOX CLINISYNCCBC without diffon 76-48-2147Ncdedungxf (Bld) [Volume fraction]39.8 % [facility] Medical CenteredicMercy Hospital SystemHemoglobin (Bld) [Mass/Vol]13.2 g/dLBluffton Hospital SystemPlatelets (Bld) [#/Vol]390 10*3/uLProKettering Health Washington TownshipRb Mcv (Fl) By Automated Count84.7Bl[facility] SystemDrug Screen, Urineon 05-04-2025 Amphetamine/MethamphetamineNegativeCleveland Clinic Mercy Hospitalca [facility] SystemBarbituratesNegative [facility] Centeredica Health SystemBenzodiazepinesNegativeNorthwestern Medical CenterMedica [facility] SystemCocaine MetaboliteNegativeCleveland Clinic Mercy Hospitalca [facility] SystemMethadoneNegativeNorthwestern Medical CenterMediGlenbeigh Hospital SystemOpiatesNegativeNorthwestern Medical CenterMedica [facility] SystemOxycodoneNegativeNorthwestern Medical CenterMedica [facility] SystemPhencyclidineNegativeCleveland Clinic Mercy Hospitalca Health SystemThc Marijuana, UrineNegative ProMedica Health SystemHBV surface Ag IA Qlon 59-59-4628Mvppyydsi B Surface AntigenNegativeProAccess Hospital Dayton SystemHCV Ab IA Qlon 26-76-4000HBT Ab Ql (S) Non-ReactiveProAccess Hospital Dayton SystemHIV 1+2 Ab+HIV1 p24 Ag IA Qlon 76-61-2283DEF 1&2 AB/AGNon-ReactiveWilson Street HospitalHemoglobin A1con 80-87-4405YhR1s (Bld) [Mass fraction]5.3 %4.0 - 6.0 %[facility] SystemNo Panel Information on 69-20-6793UWRC HealthcareRubella IGG immune statusOrdered By: Angeline Velasquez on 12-27-6421Regkxmb immune IgGProAccess Hospital Dayton SystemType and screenon 43-67-4999Jkg/Rh(D)PositiveProKettering Health Washington TownshipHCG ( test) Ql (U)on 34-75-7282Ihgtihcxnbbskm and review of laboratory resultsAbnormalNODC Healthcare Preg Test, UrPositiveNegativeNOSaint John's Regional Health CenterNODC HealthcareUS OB TRANSVAGINALon 70-61-4652Zlf [place] [address] Ultrasound Report Signed Patient: JUHI COPE MR#: [id number] : 1995 Acct:[id number] Age/Sex: 30 / F ADM Date: 05/01/25 Loc: US Attending Dr: Nathan Pop D.O. Ordering Physician: Nathan Pop D.O. Date of Service: 05/01/25 Procedure(s): US OB transvaginal Accession Number(s): [id number] cc: Nathan Pop D.O.; Physician,Non-Staff Katherine The [address] [address] Patient Name: JUHI COPE MRN: [id number] date: 1995 Sex: F Assigned Patient Location: US Current Patient Location: US Accession/Order Number: [id number] Exam Date: 05/01/2025 08:57 Report Date: 05/01/2025 [...] Faria M.D. 05/01/2025 9:01 AM Dictation Location: [place] [address] Electronically authenticated by: [id number] Y Date: 05/01/2025 09:01 Dictated By: Will Faria M.D. Signed By: 05/01/2504 DD/ 0 TD/TT: Protocol Manager:TBHRadiology, Radiologist, - 05/01/2025 [place] [address] Ultrasound Report Signed Patient: JUHI COPE MR#: [id number] : 1995 Acct:[id number] Age/Sex: 30 / F ADM Date: 05/01/25 Loc: US Attending Dr: Nathan Pop D.O. Ordering Physician: Nathan Pop D.O. Date of Service: 05/01/25 Procedure(s): US OB transvaginal Accession Number(s): [id number] cc: Nathan Pop D.O.; Physician,Non-Staff Katherine The [place] [address] Patient Name: JUHI COPE MRN: [id number] date: 1995 Sex: F Assigned Patient Location: US Current Patient Location: US Accession/Order Number: [id number] Exam Date: 05/01/2025 08:57 Report Date: 05/01/2025 [...] Faria M.D. 05/01/2025 9:01 AM Dictation Location: [place] [address] Electronically authenticated by: [id number] Y Date: 05/01/2025 09:01 Dictated By: Will Faria M.D. Signed By: 05/01/25903 DD/ 0 TD/TT: Protocol Manager: LANETTE HealthcareRadiology Study observation (narrative)NOM HealthcareUS OB TRANSVAGINALOrdered By: Radiologist Radiology on 25-06-4656KULF Violet Grey Work Phone: Urinalysis macro (dipstick) panel (U)on 05-01-2025 Bilirubin, UANegativeNegative - 4(70) +++ mg/dLNOMS HealthcareBlood, UANegative Negative - 50 Teodoro/mcLNOMS HealthcareClarity, UAClearNOMS HealthcareColor, UA YellowNOMS HealthcareGlucose, UANegativeNegative - 2000(110) ++++ mg/dLNOMS HealthcareInterpretation and review of laboratory resultsNormalNODC Healthcare Ketones, UANegativeNegative - 160(16) ++++ mg/dLNOMS HealthcareLeukocytes, UA NegativeNegative - 500+++ Robinson/mcLNOMS HealthcareNitrite, UANegativeNegative - PositiveNOMS HealthcarepH, UA5.55 - 9NOMS HealthcareProtein, UANegativeNegative - 2000(20) ++++ mg/dLNOMS HealthcareSpec Grav, UA1.021 - 1.03N[facility]S Healthcare Urobilinogen, UA1.00.2 - 12 mg/dLNOMS HealthcareNOMS HealthcareCHEMISTRYOrdered By: SYSTEM SYSTEM on 75-87-9601Horpjtoblyyq Lvl31.35 ng/mLInvalid Interpretation CodeRemisol ChemComment on above:Result Comment: 'F NON FOLLICULAR = 0.10 - 0.60' 'LUTEAL = 3.00 - 17.5' 'MIDLUTEAL = 3.30 - 18.6' 'POST-MENOPAUSE = 0.10 - 0.40' '-FIRST TRIMESTER = 8.30 - 66.5' 'SECOND TRIMESTER = 18.9 - 66.1' 'THIRD TRIMESTER = 35.8 - 312.4' 'MALES = 0.14 - 2.06'Progesteroneon 00-97-7709Wiokdrjdvxwd Lvl31.35 ng/mLInvalid Interpretation CodeMount Carmel Health SystemComment on above:Result Comment: 'F NON FOLLICULAR = 0.10 - 0.60' 'LUTEAL = 3.00 - 17.5' 'MIDLUTEAL = 3.30 - 18.6' 'POST-MENOPAUSE = 0.10 - 0.40' '-FIRST TRIMESTER = 8.30 - 66.5' 'SECOND TRIMESTER = 18.9 - 66.1' 'THIRD TRIMESTER = 35.8 - 312.4' 'MALES = 0.14 - 2.06'Performed By: #### [id number] #### [facility] [address] [place], [place] [address]Platdepkvkodor 34-03-9472Plzmyfuocnqw5.2 ng/mLNormal.The [facility] Physician GroupComment on above:Result Comment: Follicular phase 0.1 - 0.9 Luteal phase 1.8 - 23.9 Ovulation phase 0.1 - 12.0 First trimester 11.0 - 44.3 Second trimester 25.4 - 83.3 Third trimester 58.7 - 214.0 Postmenopausal 0.0 - 0.1 Performed at: - [facility] [id number] Endoscopic Technician: Cm Sandoval PhD, Phone: [phone] PERFORMED BY: [address] [place] [address] PATHOLOGIST BANDER ARNULFO THOMAS M.D.Performed By: #### PROG #### [facility] ,[place] Transvaginal Non-OBon 96-52-7917IP Transvaginal Non-OBExam Date/Time: 01/22/2025 16:22 EST Reason for Exam: N94.6 Report PLEASE SEE US Pelvis Non-OB Complete REPORT DATED: 01/22/2025. Ordering Provider: Nathan POP FINAL REPORT Dictated: 01/27/2025 10:11 am Siddharth Foy MD Signed (Electronic Signature): 01/27/2025 10:11 am Signed by: Siddharth Foy MD Transcribed by: ELOISA Technologist: [facility] Tra[facility] CenterUS Pelvis Non-OB Completeon 74-73-2447DD Pelvis Non-OB CompleteExam Date/Time: 01/22/2025 16:24 EST [...] Kate Gonzalez MD Transcribed by: ELOISA Technologist: ChrismengMount Carmel Health SystemMILADYSAVANNAH HPV,AGE GDLNon 23-44-0924LYF GDLN ACOG TESTINGNote.NOMS HealthcareComment on above:TESTS RESULT FLAG UNITS REF RANGE LAB Clinician Provided Cytology Information Source.............Cervix;Endocervix No. of containers..01 ThinPrep Vial Age Gina MCFADDEN Sarah... FLAG LEGEND: L-Low Normal,H-High Normal,LL-Alert Low,HH-Alert High <-Panic Low,>-Panic High,A-Abnormal,AA-Critical Abnormal Performed at: 01 =[address] [facility] [place] [address] Loren Oneal MD, IGP, RFX APTIMA HPV ASCUNote.NOMS HealthcareComment on above:TESTS RESULT FLAG UNITS REF RANGE LAB DIAGNOSIS: 02 NEGATIVE FOR INTRAEPITHELIAL LESION OR MALIGNANCY. Specimen adequacy: 02 Satisfactory for evaluation. Endocervical and/or squamous metaplastic cells (endocervical component) are present. Performed by: Sophia Calzada, Fringe Knotter ([facility]) . 02 Note: Note 02 The [...] <-Panic Low,>-Panic High,A-Abnormal,AA-Critical Abnormal Performed at: [address] [address] Loren Oneal MD, Performed at: = - [facility] [id number] Endoscopic Technician: Loren Oneal MD, Phone: [phone] Performed at: [facility] [id number] Endoscopic Technician: Loren Oneal MD, Phone: [phone] BRUSH-SPATULA CERVIX ENDOCERVIX [facility] 22-92-5211FQIOZupuyehqk (WHQ) JUHI COPE ([id number]) 1995 F Date Time Provider Department 04/29/24 [...] [I10] Encounter Status:Closed by CANDIS GARCES on 04/29/24[facility] 98-08-1125VCNTIsbgyvuar (WHQ) JUHI COPE ([id number]) 1995 F Date Time Provider Department 04/25/24 CHARLENE RODRIGUEZ During your visit today, we recorded the following information about you: Anna De Leon 04/25/2024 1:10 PM Signed Pt got in sooner for surgery with her local obstetrics gynecology md. Please cancel surgery and all pre and [...] Encounter Status:Closed by ANNA DE LEON on 04/25/24[facility] 12-LEADon 10-08-8776GcrDouglas [place] [id number] Electrocardiograph Report Signed Patient: JUHI COPE MR#: [id number] : 1995 Acct:[id number] Age/Sex: 28 / F ADM Date: 02/13/24 Loc: PST Attending Dr: Nathan Pop D.O. Ordering Physician: Nathan Pop D.O. Date of Service: 02/13/24 Procedure(s): ECG 12 lead Accession Number(s): [id number] cc: [facility] Test Date: 2024-02-13 Pat Name: JUHI COPE Department: Room: - Gender: Female Field Secretary: : 1995 Requested By: NATHAN POP Order Number: [id number] Reading MD: MARY KATE ORDAZ Measurements Intervals [place] Rate: 86 P: 31 VA: 133 QRS: 20 QRSD: 89 T: 47 QT: 374 QTc: 449 Interpretive Statements SINUS RHYTHM No previous ECG available for comparison Electronically Signed On 02-14-2024 6:50:27 EDT by MARY KATE ORDAZ Dictated By: Mary Kate Ordaz D.O. Signed By: 02/14/24 0650 DD/ 1455 TD/TT: Protocol Manager:TBHRadiology, Radiologist, - 02/14/2024 The [place] [id number] Electrocardiograph Report Signed Patient: JUHI COPE MR#: [id number] : 1995 Acct:[id number] Age/Sex: 28 / F ADM Date: 02/13/24 Loc: PST Attending Dr: Nathan Pop D.O. Ordering Physician: Nathan Pop D.O. Date of Service: 02/13/24 Procedure(s): ECG 12 lead Accession Number(s): [id number] cc: [facility] Test Date: 2024-02-13 Pat Name: JUHI COPE Department: Room: - Gender: Female Field Secretary: : 1995 Requested By: NATHAN POP Order Number: [id number] Reading MD: MARY KATE ORDAZ Measurements Intervals [place] Rate: 86 P: 31 VA: 133 QRS: 20 QRSD: 89 T: 47 QT: 374 QTc: 449 Interpretive Statements SINUS RHYTHM No previous ECG available for comparison Electronically Signed On 02-14-2024 6:50:27 EDT by MARY KATE ORDAZ Dictated By: Mary Kate Ordaz D.O. Signed By: 02/14/24 0650 DD/ 1455 TD/TT: Protocol Manager: LANETTE Hooks 12-LEADOrdered By: Radiologist Radiology on 36-08-6238LEHM Violet Grey Work Phone: ECG 12-LEADon 30-21-1167Meyxgyehu Study observation (narrative)LANETTE SmallUS PELVIS W/ TRANSVAGINALon 21-23-1199[place] [address] Ultrasound Report Signed Patient: JUHI COPE MR#: [id number] : 1995 Acct:[id number] Age/Sex: 28 / F ADM Date: 01/15/24 Loc: [facility] Attending Dr: Nathan Pop D.O. Ordering Physician: Nathan Pop D.O. Date of Service: 01/15/24 Procedure(s): US pelvis w/ transvaginal Accession Number(s): [id number] cc: Nathan Pop D.O.; Physician,Non-Staff Katherine The [address] [address] Patient Name: JUHI COPE MRN: [id number] date: 1995 Sex: F Assigned Patient Location: [facility] Current Patient Location: [facility] Accession/Order Number: [id number] Exam Date: 01/15/2024 07:57 Report Date: 01/15/2024 [...] Signed By: 01/15/24 1144 DD/ 1142 TD/TT: Protocol Manager:ANTHONYHRadiology, Radiologist, - 01/15/2024 [place] [address] Ultrasound Report Signed Patient: JUHI COPE MR#: [id number] : 1995 Acct:[id number] Age/Sex: 28 / F ADM Date: 01/15/24 Loc: [facility] Attending Dr: Nathan Pop D.O. Ordering Physician: Nathan Pop D.O. Date of Service: 01/15/24 Procedure(s): US pelvis w/ transvaginal Accession Number(s): [id number] cc: Nathan Pop D.O.; Physician,Non-Staff Katherine The [place] [id number] Patient Name: JUHI COPE MRN: [facility]:[id number] date: 1995 Sex: F Assigned Patient Location: [facility] Current Patient Location: [facility] Accession/Order Number: [id number] Exam Date: 01/15/2024 07:57 Report Date: 01/15/2024 11:42 At the request of: NATHAN KIESHA Procedure: US pelvis w/ transvaginal EXAMINATION: US [...] Signed By: 01/15/24 1144 DD/ 1142 TD/TT: Protocol Manager: [facility]OSPITALShalonda HealthcareRadiology Study observation (narrative)[facility] HealthcareUS PELVIS W/ TRANSVAGINALOrdered By: Radiologist Radiology on 17-44-0116TLHE Healthcare Work Phone: cNPNon [phone] (Herrera) JUHI COPE ([id number]) 1995 F Date Time Provider Department 12/12/23 [...] [I10] Encounter Status:Closed by CANDIS GARCES on 12/12/23[facility]Gr[facility] 03-10-6814XPVMIqjvdf Visit (GYMGME) JUHI COPE ([id number]) 1995 F Date Time Provider Department 12/10/23 10:30 AM CHARLENE RODRIGUEZ During your visit today, we recorded the following information about you: Pulse Blood pressure Weight 98/minute 124/84 68.9 kg Charlene Rodriguez DO 12/10/2023 3:14 PM Signed [facility] SECTION FOR MINIMALLY INVASIVE GYNECOLOGIC SURGERY OUTPATIENT VISIT DATE 12/10/2023 OUTPATIENT VISIT TYPE Follow-up visit PRIMARY CARE PHYSICIAN: Denny Rodríguez [address] [place] [address] REFERRING PHYSICIAN: Self CHIEF COMPLAINT: No chief [...] MRI: no evidence of Past Gynecologic History: News Broadcaster History LMP: 07/08/2023 (Exact Date), Having periods Age at Menarche: 14 Age at First : 27 Age at Menopause: News Broadcaster History Comments: Sexual Activity: Never; No partner [...] Skin: Skin color, texture (more content not included)...NormalC[facility] Cervical or vaginal smear or scraping studyon 07-07-9084JSKGTwo Rivers Psychiatric HospitalPNon 75-69-0743TIEEIxvymlzga ([facility]) JUHI COPE ([id number]) 1995 F Date Time Provider Department 08/02/23 CHARLENE RODRIGUEZ [facility] During your visit today, we recorded the [...] completed via Cover MyMeds. Juhi Cope (Morales: [id number]) - [id number] Orilissa 150MG tablets Status: Sent To Plan [...] [I10] Encounter Status:Closed by JENIFER LYNN on 08/02/23[facility] 47-45-9721JQJBUdjypu Visit (GYMGME) JUHI COPE ([id number]) 1995 F Date Time Provider Department 07/16/23 11:30 AM CHARLENE RODRIGUEZ During your visit today, we recorded the following information about you: Blood pressure Last Period 136/90 07/08/23 Charlene Rodriguez DO 07/16/2023 12:41 PM Signed [facility] SECTION FOR MINIMALLY INVASIVE GYNECOLOGIC SURGERY OUTPATIENT VISIT DATE 07/16/2023 OUTPATIENT VISIT TYPE Follow-up visit PRIMARY CARE PHYSICIAN: Denny Rodríguez [address] [place] [address] REFERRING PHYSICIAN: Denny Rodríguez CHIEF COMPLAINT: No [...] additional bowel lesions identified Past Gynecologic History: 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 IMPRESSION: No deep infiltrating endometriosis. Protocol Manager: PSCB Transcribe Date/Time: Jun 12 2023 2:54P Dictated by : ASHLEY DUKE MD This examination was interpreted and the report reviewed and electronically signed by: SONIDO FLAHERTY MD on Jun 12 2023 4:51PM EST [id number] Hospital LimaCNPNon 26-42-7460PECOPlbeabytg (GYNMN) JUHI COPE ([id number]) 1995 F Date Time Provider Department 05/11/23 CHARLENE RODRIGUEZ During your visit today, we recorded the following information about you: Tawana Nair [facility] [place] 05/11/2023 1:21 PM Signed Reason for call: [...] Takes aygestin 5mg daily. She did not crab picker flexeril. Encourage to crab picker the flexeril as this will help with the cramping. Reviewed red flag bleeding symptoms that require trip to ER (soaking greater than one overnight pad per hour, chest pain, shortness of breath, fatigue, palpitations).. Advised keep appt. Gives verbal understanding. Appointments for Next 60 Days Date Time Provider Location Dept Phone 05/17/2023 1:00 PM CHARLENE RODRIGUEZ [facility] [place] [phone] Candis Suárez RN Allergies As of Date: 05/11/2023 (No Known Allergies) Date Reviewed: 05/09/2023 Reviewed by: Jihan Downs APRN.EXTERNAL RELATIONS MANAGER - Fully Assessed Reason for Visit: [...] [I10] Encounter Status:Closed by CANDIS WILLINGHAM on 05/11/23[facility] HospitalGracie [id number] Visit ([facility]) JUHI COPE ([id number]) 1995 F Date Time Provider Department 05/01/23 10:30 AM [facility] During your visit today, we recorded the following information about you: Blood pressure Weight Height Last Period 148/64 64.9 kg 1.575 m 04/22/23 Jihan Downs APRN.EXTERNAL RELATIONS MANAGER 05/09/2023 11:46 AM Signed Juhi Cope is a 28 year old female who presents for problem visit for pain HPI: Pain is week before period and week of period. Worse on her period for every day she's bleeding Urinary - No symptoms GI - Always constipated. No meds [place] - painful always Pain is on left [...] L0 SAB0 IAB0 Ectopic0 Multiple0 Live Births0 News Broadcaster History LMP: 03/26/2023 (Approximate), Having periods Age at Menarche: Age at First : Age at Menopause: News Broadcaster History Comments: Sexual Activity: Never; No partner [...] physical therapy - or can go locally pelvicrehab.Seabags Trial flexeril at bedtime Can consider Baclofen suppositories - let me know if you want to trial after you go to PT Contin (more content not included)...NormalKnox Community HospitalCHEMISTRY Ordered By: SYSTEM SYSTEM on 56-20-7107Oracwjw [Mass/Vol]4.3 g/dLNormal3.3 - 5.0 gm/dLFTMC RemisolAlbumin/Globulin [Mass [...] [Mass/Vol]8.8 mg/dLLow8.9 - 11.1 mg/dLFTMC RemisolChloride [Moles/Vol]100 mmol/UFra841 - 111 mmol/LFTMC RemisolCO2 [Moles/Vol]24 mmol/L Jwedvz04 - 31 mmol/LFTMC RemisolCreatinine [Mass/Vol]1.0 mg/dLNormal0.5 - 1.3 mg/dLFTMC RemisolGFR/1.73 sq M.predicted among blacks MDRD (S/P/Bld) [Vol rate/Area]mL/min/1.73 x3Ivuwla>=59mL/min/1.73 m2FTMC Chem SGFR/1.73 sq M.predicted among non-blacks MDRD (S/P/Bld) [Vol rate/Area]mL/min/1.73 s0Mwkbpa >=59mL/min/1.73 m2FT Chem SGlobulin (S) [Mass/Vol]3.6 g/dLNormal1.4 - 4.0 gm/dLFTMC RemisolGlucose [Mass/Vol]104 mg/tTNofysi66 - 199 mg/dLFTMC Remisol Potassium [Moles/Vol]3.6 mmol/LNormal3.5 - 5.3 mmol/LFTMC RemisolProtein [Mass/Vol]7.9 g/dLHigh6.0 - 7.8 gm/dLFTMC RemisolSodium [Moles/Vol]134 mmol/LLow 135 - 145 mmol/LFTMC RemisolUrea nitrogen [Mass/Vol]10 mg/dLNormal5 - 21 mg/dL FTMC RemisolUrea nitrogen/Creatinine [Mass ratio]10 mg/ajNvgzif81 - 20FTMC RemisolHEMATOLOGYOrdered By: Amairani Jenkins on 02-46-6037Yccfrexauwnt Ql (Bld) Present (01/31/23 2:10 PM)NormalFTMC HemeManSSErythrocyte [...] fLNormal6.4 - 10.8 fLFTMC HemeAutoSSPlatelets (Bld) [#/Vol]471.0 E9/ZZkstdg452.0 - 500.0 E9/LFTMC HemeAutoSSRBC (Bld) [#/Vol]4.3 E12/LNormal4.3 [...] - 0.5 E9/L FTMC HemeAutoSSLymphocytes/100 WBC (Bld)31.7 %Ahsjki40.0 - 50.0 %[facility] HemeAutoSS Lymphocytes/Leukocytes Auto (Bld) [Pure # fraction]2.4 E9/LNormal1.0 - 4.0 E9/L [facility] HemeAutoSSMonocytes/100 WBC (Bld)9.1 %Normal4.0 - 14.0 %[facility] HemeAutoSS Monocytes/Leukocytes Auto (Bld) [Pure # fraction]0.7 E9/LNormal0.2 - 1.0 E9/L [facility] HemeAutoSSNeutrophils/100 WBC (Bld)57.4 %Jejflq83.0 - 75.0 %[facility] HemeAutoSS Neutrophils/Leukocytes Auto (Bld) [Pure # fraction]4.3 E9/LNormal2.0 - 7.5 E9/L [facility] HemeAutoSSSEROLOGYOrdered By: Patricia Newton on 02-87-9349PJJ.beta subunit (U) [Moles/Vol]NegativeNormalFTMC Man SeroURINALYSISOrdered By: Solomon Leal on 19-64-1021Unfwlhhlg Ql (U)Negative (01/31/23 1:57 PM)NormalNegativeFTMC UA Auto SSClarity (U)Clear (01/31/23 1:57 PM)NormalClearFTMC UA Auto SSColor (U)Yellow (01/31/23 1:57 PM)NormalYellowFTMC UA Auto SSEpithelial cells.squamous LM.HPF (Urine sed) [#/Area]3-4 /HPFNormal0-2/HPFFTMC UA Auto SSGlucose Test strip (U) [Mass/Vol]Negative (01/31/23 1:57 PM)NormalNegativeFTMC UA Auto SSHemoglobin Ql (U)Negative (01/31/23 1:57 PM)NormalNegativeFTMC UA Auto SSKetones (U) [Mass/Vol]Negative (01/31/23 1:57 PM)NormalNegativeFTMC UA Auto SSLithium.plasma/[place].RBC (Bld) [Mass ratio]0-3 /HPFNormal0-3/HPFFTMC UA Auto SSNitrite Ql (U)Negative (01/31/23 1:57 PM)NormalNegativeFT UA Auto SSpH (U)6.0 *NA* (01/31/23 1:57 PM)Invalid Interpretation Code5.0 - 9.0FT UA Auto SSProtein (U) [Mass/Vol]Negative (01/31/23 1:57 PM)NormalNegativeFTMC UA Auto SSSpecific gravity (U) [Rel density] 1.010 *NA* (01/31/23 1:57 PM)Invalid Interpretation Code1.005 - 1.030FT UA Auto SSUA Spec DescClean Catch (01/31/23 1:57 PM)NormalCLAREMORE [facility]DI[facility] [place] UA Auto SSUrobilinogen Qn (U)0.5005064 {Aspen'U}/dL Normal0.0 - 1.0 EU/dLFT UA Auto SSWBC Auto Ql (U)Negative (01/31/23 1:57 PM)NormalNegativeFT UA Auto SSWBC LM.HPF (Urine sed) [#/Area]0-5 /HPFNormal0-5/HPFFT UA Auto SSBLOOD BANKOrdered By: Teena Quiroz on 83-01-1614PFV/Rh InterpPositiveInvalid Interpretation CodeCLAREMORE INDIAN [facility]OSPITAL [facility] [place] BB SubsectionABSC Gel InterpNegative (12/30/22 11:28 AM)NormalCLAREMORE INDIAN [facility] [place] BB SubsectionCHEMISTRYOrdered By: SYSTEM SYSTEM on 78-07-1955Wymtv gap [Moles/Vol]12 mmol/LNormal6 - 16 mEq/LFTMC RemisolCalcium [Mass/Vol]8.6 mg/dLLow8.9 - 11.1 mg/dLFTMC RemisolChloride [Moles/Vol]103 mmol/L Hnvfnj935 - 111 mmol/LFTMC RemisolCO2 [Moles/Vol]26 mmol/MIjlajy81 - 31 mmol/L FT[facility] RemisolCreatinine [Mass/Vol]0.9 mg/dLNormal0.5 - 1.3 mg/dLFTMC Remisol GFR/1.73 sq M.predicted among blacks MDRD (S/P/Bld) [Vol rate/Area]mL/min/1.73 d9Noleml>=59mL/min/1.73 m2FTMC Chem SGFR/1.73 sq M.predicted among non-blacks MDRD (S/P/Bld) [Vol rate/Area]mL/min/1.73 t0Tvfwnl>=59mL/min/1.73 m2FT Chem S Glucose [Mass/Vol]105 mg/qLPhrtiu11 - 199 mg/dLFTMC RemisolPotassium [Moles/Vol] 3.8 mmol/LNormal3.5 - 5.3 mmol/LFTMC RemisolSodium [Moles/Vol]137 mmol/LNormal 135 - 145 mmol/LFTMC RemisolUrea nitrogen [Mass/Vol]17 mg/dLNormal5 - 21 mg/dL FT[facility] RemisolUrea nitrogen/Creatinine [Mass ratio]19 mg/usIcdcwi19 - 20FTMC RemisolCOAGULATIONOrdered By: Courtney Tang on 75-80-2625pINL Coag (PPP) [Time]31.5 wIkuebf40.1 - 36.5 second(s)FT[facility] Auto CoagINR Coag (PPP) [Relative time]1.0 {INR}Invalid Interpretation CodeFTMC Auto CoagPT Coag (PPP) [Time]11.7 sNormal 9.4 - 12.5 second(s)[facility] Auto CoagHEMATOLOGYOrdered By: SYSTEM SYSTEM on 45-93-5262Ukjhhmjre/100 WBC (Bld)1.2 %Normal0.0 - 2.0 %[facility] HemeAutoSS Basophils/Leukocytes Auto (Bld) [Pure # fraction]0.1 E9/LNormal0.0 - 0.2 E9/L [facility] HemeAutoSSEosinophils/100 WBC (Bld)4.1 %Normal0.0 - 8.0 %[facility] HemeAutoSS Eosinophils/Leukocytes Auto (Bld) [Pure # fraction]0.2 E9/LNormal0.0 - 0.5 E9/L [facility] HemeAutoSSLymphocytes/100 WBC (Bld)40.5 %Kzwccy84.0 - 50.0 %[facility] HemeAutoSS Lymphocytes/Leukocytes Auto (Bld) [Pure # fraction]2.3 E9/LNormal1.0 - 4.0 E9/L [facility] HemeAutoSSMonocytes/100 WBC (Bld)7.6 %Normal4.0 - 14.0 %[facility] HemeAutoSS Monocytes/Leukocytes Auto (Bld) [Pure # fraction]0.4 E9/LNormal0.2 - 1.0 E9/L [facility] HemeAutoSSNeutrophils/100 WBC (Bld)46.6 %Esaxip24.0 - 75.0 %[facility] HemeAutoSS Neutrophils/Leukocytes Auto (Bld) [Pure # fraction]2.6 E9/LNormal2.0 - 7.5 E9/L [facility] HemeAutoSSHEMATOLOGYOrdered By: Courtney Case on 96-99-5965Tzqgvdarnjf distribution width (RBC) [Ratio]14.1 %Sfqivh16.9 - 14.2 %[facility] HemeAutoSS Hematocrit (Bld) [Volume fraction]31.5 %Low34.0 - 46.0 %[facility] HemeAutoSS Hemoglobin (Bld) [Mass/Vol]10.0 g/dLLow12.0 - 16.0 gm/dLFTMC HemeAutoSSMCH (RBC) [Entitic mass]25.3 pgLow27.0 - 34.0 pgFTMC HemeAutoSSMCHC (RBC) [Mass/Vol]31.8 g/tUZkqnmn82.4 - 36.0 gm/dLFTMC HemeAutoSSMCV (RBC) [Entitic vol]79.6 fLLow80.0 - 100.0 fLFTMC HemeAutoSSPlatelet mean volume (Bld) [Entitic vol]7.7 fLNormal6.4 - 10.8 fLFTMC HemeAutoSSPlatelets (Bld) [#/Vol]264.0 E9/QQbsulv090.0 - 500.0 E9/LFTMC HemeAutoSSRBC (Bld) [#/Vol]4.0 E12/LLow4.3 - 5.9 E12/LFTMC HemeAutoSS WBC corrected for nucl RBC Auto (Bld) [#/Vol]5.7 E9/LNormal4.0 - 11.0 E9/LFTMC HemeAutoSSURINALYSISOrdered By: Courtney Case on 74-46-0664Knutsiuy LM Ql (Urine sed)Trace /HPFNormalTrace/HPFFTMC UA Auto SSBilirubin Ql (U)Negative (12/30/22 8:53 AM)NormalNegativeFTMC UA Auto SSClarity (U)Clear (12/30/22 8:53 AM)NormalClearFCLAREMORE INDIAN [facility]OS[facility]ITAL [facility] [place] UA Auto SSColor (U)Yellow (12/30/22 8:53 AM)NormalYellowCLAREMORE INDIAN HOSPITAL [facility] [place] UA Auto SSEpithelial cells.squamous LM.HPF (Urine sed) [#/Area]0-2 /HPFNormal0-2/HPFCLAREMORE INDIAN [facility]OSPITAL [facility] [place] UA Auto SSGlucose Test strip (U) [Mass/Vol]Negative (12/30/22 8:53 AM)NormalNegativeCLAREMORE INDIAN [facility] [place] UA Auto SSHemoglobin Ql (U)2+ *ABN* (12/30/22 8:53 AM)Invalid Interpretation CodeNegativeCLAREMORE INDIAN HOSPITAL [facility] [place] UA Auto SSKetones (U) [Mass/Vol]Negative (12/30/22 8:53 AM)NormalNegativeCLAREMORE INDIAN [facility] [place] UA Auto SSLithium.plasma/[place].RBC (Bld) [Mass ratio]4-20 /HPFNormal0-3/HPFCLAREMORE INDIAN [facility]OSPITAL [facility] [place] UA Auto SSNitrite Ql (U)Negative (12/30/22 8:53 AM)NormalNegativeCLAREMORE INDI[facility] [place] UA Auto SSpH (U)6.0 *NA* (12/30/22 8:53 AM)Invalid Interpretation Code5.0 - 9.0[facility] [place] UA Auto SSProtein (U) [Mass/Vol]Negative (12/30/22 8:53 AM)NormalNegativeCLAREMORE INDI[facility] [place] UA Auto SSSpecific gravity (U) [Rel density] 1.025 *NA* (12/30/22 8:53 AM)Invalid Interpretation Code1.005 - 1.030[facility] [place] UA Auto SSUA Spec DescClean Catch (12/30/22 8:53 AM)NormalCLAREMORE INDIAN HOSPITAL [facility] [place] UA Auto SSUrobilinogen Qn (U)0.0220616 {Aspen'U}/dL Normal0.0 - 1.0 EU/dLCLAREMORE INDIAN [facility]OSPITAL [facility] [place] UA Auto SSWBC Auto Ql (U)Negative (12/30/22 8:53 AM)NormalNegativeCLAREMORE [facility]DI[facility] [place] UA Auto SSWBC LM.HPF (Urine sed) [#/Area]0-5 /HPFNormal0-5/HPFCLAREMORE INDIAN [facility]OSP[facility] [place] UA Auto SSOffice Visiton 60-31-6102Fnypgr-up [id number] Juhi Cope 1995 F Date Provider Department Center 12/05/2022 [id number]-WHKYAOFWN, GINA [facility] W[facility] None Chart Close Cosign Required by: Opal Ross MD[VARUND] No family history on file Level of Service:42940 [facility] OFFICE/OUTPATIENT ESTABLISHED LOW MDM 20-29 MIN (GE,GC) Reason for Visit and Comments: Blood Pressure Check [299][facility] SHSProgress Noteon 71-71-3675Fxjqhjcl Note Attestation signed by Opal Ross MD at 12/05/2022 3:19 PM [facility]: This patient was seen in the [facility]'s [facility] by the resident. I reviewed and agree [...] about 4 weeks (around 01/02/2023) for Visit .[facility] SHSProgress NoteVital signs BP 127/87 Weight 149.2lb Pulse 106 Temp 96.7No SHSProgress Noteon 31-17-1363Vumzuiju Note Late entry due to patient care. Resident Diallo notified of B.P 138/96 heart rate 119 around 1236 see flowsheet. Also notified checked in 1 hour via orders and B.P 143/87 pulse 111. Clarified if should check in 1 hour according to orders. . Also notified patient has discharge order in. Resident Lacy states No on rechecking. Ok to discharge. Will make patient aware.[facility] SHSProgress NotePOSTPARTUM VAGINAL DELIVERY POST DAY # 2 Juhi Ranjan, 27 y.o. This patient was seen & [...] Name: DO Vanessa Zambrano DO 12/02/2022, 5:[address] [facility] MVF79zx 20-47-38031424.5mm flanges given to patient. Encouraged her to call for observation of pump session and smaller flanges. Martha in NICU to assist with personal pump.[facility] SHSCARECOORDon 74-55-9856CQTGSZQEC28 year old admitted for induction of labor [...] to home. Denies any concerns at this time.[facility] SHSProgress Noteon 53-99-5136Pivovcaw Note NOTE - VAGINAL DELIVERY POST DAY [...] with more than 50% of the total uzfn-ch-osnv time of the visit in counseling/coordination of care. , 9:[address] [facility] SLW22lx 50-82-994843Lrohp given to patient and educated how to use and to bring to [facility] TGA71Isdkzt pump use indicated for this pt. Due to: infant in [facility] breast pump, [...] in [facility] for smaller flange sizesGuthrie Corning Hospital SHSLabor and Delivery Noteon 19-65-5448Huuzd and Delivery Note Attestation with edits by [...] PreEwSF Post-operative Diagnosis: Live Born female Delivering Music Researcher & Senior Editor(s): Dr. Bowden; Dr. Kramer Infant Information: Information for the patient's : Francie Cope [[id number]] Information for the patient's : Francie Cope [[id number]] Description: normal Meconium Noted: No Anesthesia: epidural [...] for: RUBELLAMILADYG Irina Kramer DO 11/30/2022, 4:04 [facility]NA[facility] SHSProgress Noteon 60-55-0667Qjrvietc NoteFoley catheter inserted by Andi Bacon RN, catheter drained and emptied for 900cc. Catheter secured to leg.[facility] SHSProgress NotePatient up to bathroom but remains unable to void. Bladder scan completed and reads >570. Sent secure message to Dr. Ruiz letting her know the above. Instructed to place chauhan catheter.[facility] SHSProgress Note Secure message sent to Dr. Gamez stating patient is having difficulty voiding, patient's perineum is very swollen, and that patient was straight cathed for 950ml at noon. Received order for benadryl to help with swelling. [facility]Pro[facility] NoteNutrition rescreen completed. Chart reviewed. Patient to be monitored and followed by the diet calibration technician. Suad Samuels, DTGuthrie Corning Hospital SHSProgress NotePatient unable to void, last straight cathed at 0400. Bladder scan obtained for >928 ml, fundus +2 and shifted to right. Patient straight cathed on attempt x2 by Andi Bacon RN for 950cc. Will continue to monitor.[facility] SHSCAREPLNon 63-73-4646QTYVDZQQni patient will continue to make cervical change. Clotilde Mg, RNNo SHSLaboratory - Hematology and Cell countsOrdered By: Lucrecia Cervantes on 92-11-6492Rjjmmiobe (Bld) [#/Vol]386 10*3/uL140 - 440 10*3/uLSumma HealthPlatelets (Bld) [#/Vol]Ordered By: Lucrecia Cervantes on 25-91-2163Hwttiuzfgvzrnp and review of laboratory resultsNormal [facility]. agalactiae DNA TENA+probe Ql (Unsp spec)on 11-29-2022 Group B Strep ScreenNot detectedNot Highland District HospitalInterpretation and review of laboratory resultsNoSouthwest General Health CenterMethodology: real-time PCRSKettering Health Dayton HealthABO and Rh group Confirm Nom (Bld)on 94-01-1704YGQ group Nom (Bld)OSWyandot Memorial HospitalD Ag Ql (RBC)PositiveSumGundersen Palmer Lutheran Hospital and ClinicsBlood type and Crossmatch panel (Bld)on 97-23-6246HBG group Nom (Bld)OSumne HealthBlood group antibody screen GEL QlNegativeSumne HealthD Ag Ql (RBC)PositiveSMercy Iowa CityCBC panel Auto (Bld)Ordered By: Lauren Ayers on 10-24-1455Iwbdhzvmbqq distribution width (RBC) [Ratio]13.3 %11.5 - 14.5 %[facility] HealthHematocrit (Bld) [Volume fraction]33.8 %Low35.0 - 47.0 %[facility] HealthHemoglobin (Bld) [Mass/Vol] 11.2 g/dLLow11.7 - 16.0 g/dLSumne HealthInterpretation and review of laboratory resultsAbnormalSMedina HospitalH (RBC) [Entitic mass]28.0 pg26.0 - 34.0 pgSMedina HospitalHC (RBC) [Mass/Vol]33.1 %32.0 - 36.0 %[facility] HospitalMCV (RBC) [Entitic vol]84.4 fL80.0 - 98.0 fLmma HealthPlatelet mean volume (Bld) [Entitic vol]8.3 fL7.4 - 12.4 fLmma HealthPlatelets (Bld) [#/Vol]319 10*3/uL140 - 440 10*3/uL Summa HealthRBC (Bld) [#/Vol]4.00 10*6/uL3.8 - 5.20 10*6/uLWexner Medical Center HealthWBC (Bld) [#/Vol]18.9 10*3/uLHigh3.6 - 10.7 10*3/uLSt. Vincent Hospital HealthComprehensive metabolic 1998 panelon 03-62-0659Gorylaz [Mass/Vol]3.9 g/dL3.5 - 5.0 g/dLSumma HealthALP [Catalytic [...] HealthGFR/1.73 sq M.predicted MDRD (S/P/Bld) [Vol rate/Area]- [facility] Toledo Medical CenterComment on above: Calculation based on the Chronic Kidney Disease Epidemiology Collaboration (CKD- EPI) equation refitwithout adjustment for raceGlucose [Mass/Vol]158 mg/uXRohf36 - 100 mg/dLSumma HealthInterpretation and review of laboratory resultsAbnormal Summa HealthPotassium [Moles/Vol]4.1 mmol/L3.5 - 5.1 mmol/LSumma HealthProtein [Mass/Vol]7.5 g/dL6.3 - 8.2 g/dLSumma HealthSodium [Moles/Vol]133 mmol/HDew391 - 145 mmol/LSumma HealthUrea nitrogen [Mass/Vol]5 mg/dLLow7 - 17 mg/dLSumma HealthSumma HealthLaboratory - Hematology and Cell countsOrdered By: Shruthi Fontana on 40-90-3965Vpnrygqle (Bld) [#/Vol]335 10*3/uL140 - 440 10*3/uLSumma HealthPlatelets (Bld) [#/Vol]Ordered By: Shruthi Fontana on 11-28-2022 Interpretation and review of laboratory resultsNormSelect Medical Cleveland Clinic [facility] Health CHEMISTRYOrdered By: GenOil on 64-21-0037Hiar T4 index Calc [Mass/Vol] 5.98 ng/dLNormal5.90 - 13.10 ng/dLFTMC RemisolT4 [Mass/Vol]7.5 ug/dLNormal4.6 - 9.1 mcg/dLFTMC RemisolT4 uptake [Mass/Vol]31.9 %Low32.0 - 48.4 %FT RemisolTSH Qn1.65 m[IU]/LNormal0.34 - 5.60 mcIU/mLFTMC RemisolAlbumin [...] Calculate mg/dLInvalid Interpretation Code0.1 - 0.9 mg/dL [facility] RemisolChloride [Moles/Vol]102 mmol/JUtxxob671 - 111 mmol/LFTMC RemisolCO2 [Moles/Vol]18 mmol/LLow21 - 31 mmol/LFTMC RemisolCreatinine [Mass/Vol]0.6 mg/dL Normal0.5 - 1.3 mg/dLFTMC RemisolGFR/1.73 sq M.predicted among blacks MDRD (S/P/Bld) [Vol rate/Area]mL/min/1.73 w7Kyzkgj>=59mL/min/1.73 m2FTMC Chem S GFR/1.73 sq M.predicted among non-blacks MDRD (S/P/Bld) [Vol rate/Area] mL/min/1.73 u0Zgxvfi>=59mL/min/1.73 m2FTMC Chem SGlobulin (S) [Mass/Vol]4.0 g/dL Normal1.4 - 4.0 gm/dLFT RemisolPotassium [Moles/Vol]3.7 mmol/LNormal3.5 - 5.3 mmol/LFTMC RemisolProtein [Mass/Vol]7.1 g/dLNormal6.0 - 7.8 gm/dLFT Remisol Sodium [Moles/Vol]132 mmol/CDal955 - 145 mmol/LFTMC RemisolUrate [Mass/Vol]4.9 mg/dLNormal2.2 - 7.4 mg/dLFT RemisolUrea nitrogen [Mass/Vol]7 mg/dLNormal5 - 21 mg/dLCLAREMORE [facility]DI[facility] [place] RemisolCOAGULATIONOrdered By: Amairani Jenkins on 68-05-8534aSZR Coag (PPP) [Time]25.3 bDmhpkk74.1 - 36.5 second(s)[facility] Auto Coag Fibrin+Fibrinogen fragments (S) [Mass/Vol]>10 and <40 *ABN* (11/27/22 3:14 PM)Invalid Interpretation Code<10FT Man SeroFibrinogen Coag (PPP) [Mass/Vol]539 mg/uCSsec074 - 393 mg/dLCLAREMORE INDIAN [facility] [place] Auto CoagINR Coag (PPP) [Relative time]0.9 {INR}Invalid Interpretation CodeFT Auto CoagPT Coag (PPP) [Time]10.1 sNormal9.4 - 12.5 second(s)[facility] Auto CoagHEMATOLOGYOrdered By: Raquel Arteaga on 63-38-8009Nfdcscwhscs distribution width (RBC) [Ratio]12.9 %Ttoiup21.9 - 14.2 % FT HemeAutoSSHematocrit (Bld) [Volume fraction]34.2 %Jsqsjm97.0 - 46.0 %FT HemeAutoSSHemoglobin (Bld) [Mass/Vol]11.0 g/dLLow12.0 - 16.0 gm/dLFT HemeAutoSSMCH (RBC) [Entitic mass]27.3 kqLpkzxz84.0 - 34.0 pgFTMC HemeAutoSSMCHC (RBC) [Mass/Vol]32.3 g/pOHzeyax48.4 - 36.0 gm/dLFT HemeAutoSSMCV (RBC) [Entitic vol]84.6 yZSsvvvx77.0 - 100.0 fLCLAREMORE INDIAN HOSPITAL [facility] [place] HemeAutoSSPlatelet mean volume (Bld) [Entitic vol]8.2 fLNormal6.4 - 10.8 fLCLAREMORE INDIAN HOSPITAL – [place] HemeAutoSSPlatelets (Bld) [#/Vol]273.0 E9/DRguybw602.0 - 500.0 E9/LFCLAREMORE INDIAN HOSPITAL [facility] [place] HemeAutoSSRBC (Bld) [#/Vol]4.0 E12/LLow4.3 - 5.9 E12/LFCLAREMORE INDIAN [facility]PITAL [facility] [place] HemeAutoSSWBC corrected for nucl RBC Auto (Bld) [#/Vol]15.7 E9/LHigh4.0 - 11.0 E9/[facility] HemeAutoSSComment on above:Result Comment: Slide reviewed by ts Unable to obtain accurate platelet count due to platelet clumping. Platelet count estimate appears normal on slide..URINALYSISOrdered By: Amairani Jenkins on 99-67-7156Anocenibb Ql (U)Negative (11/27/22 1:55 PM)NormalNegativeCLAREMORE [facility]DIAN [facility] [place] UA Auto SSClarity (U)Clear (11/27/22 1:55 PM)NormalClearFCLAREMORE INDIAN [facility]OSP[facility] [place] UA Auto SSColor (U)Yellow (11/27/22 1:55 PM)NormalYellowFT UA Auto SSEpithelial cells.squamous LM.HPF (Urine sed) [#/Area]3-4 /HPFNormal0-2/HPFFTMC UA Auto SSGlucose Test strip (U) [Mass/Vol]Negative (11/27/22 1:55 PM)NormalNegativeCLAREMORE [facility] [place] UA Auto SSHemoglobin Ql (U)1+ *ABN* (11/27/22 1:55 PM)Invalid Interpretation CodeNegativeFT UA Auto SSKetones (U) [Mass/Vol]Negative (11/27/22 1:55 PM)NormalNegativeCLAREMORE [facility] [place] Auto SSLithium.plasma/[place].RBC (Bld) [Mass ratio]4-20 /HPFNormal0-3/HPFFTMC UA Auto SSNitrite Ql (U)Negative (11/27/22 1:55 PM)NormalNegativeCLAREMORE [facility] [place] Auto SSpH (U)6.5 *NA* (11/27/22 1:55 PM)Invalid Interpretation Code5.0 - 9.0[facility] [place] Auto SSProtein (U) [Mass/Vol]Negative (11/27/22 1:55 PM)NormalNegativeCLAREMORE [facility] [place] Auto SSSpecific gravity (U) [Rel density] 1.010 *NA* (11/27/22 1:55 PM)Invalid Interpretation Code1.005 - 1.030[facility] [place] Auto SSUA Spec DescClean Catch (11/27/22 1:55 PM)NormalCLAREMORE [facility]DI[facility] [place] Auto SSUrobilinogen Qn (U)[id number] {[place]'U}/dL Normal0.0 - 1.0 EU/dLCLAREMORE INDIAN [facility] [place] Auto SSWBC Auto Ql (U)Negative (11/27/22 1:55 PM)NormalNegativeCL[facility]EMORE [facility] [place] Auto SSWBC LM.HPF (Urine sed) [#/Area]0-5 /HPFNormal0-5/HPFCLAREMORE [facility]DIAN [facility] [place] Auto SSCHEMISTRYOrdered By: SYSTEM SYSTEM on 07-14-2022 Albumin [Mass/Vol]3.6 g/dLNormal3.3 - 5.0 gm/dLFTMC RemisolAlbumin/Globulin [Mass ratio]1.1 {ratio}Normal1.1 - 2.2FTMC RemisolALP [Catalytic activity/Vol]41 [iU]/vRiqyth15 - 98 Int._Unit/LFTMC RemisolALT No additional P-5'-P [Catalytic activity/Vol]19 [iU]/dNormal6 - 46 Int._Unit/LFTMC RemisolAnion gap [Moles/Vol] 11 mmol/LNormal6 - 16 mEq/LFTMC RemisolAST [Catalytic activity/Vol]21 [iU]/d Normal5 - 43 Int._Unit/LFTMC RemisolBilirubin [Mass/Vol]0.7 mg/dLNormal0.0 - 1.1 mg/dLFTMC RemisolBilirubin.direct [Mass/Vol]0.1 mg/dLNormal0.1 - 0.4 mg/dLFTMC RemisolBilirubin.indirect [Mass or moles/Vol]0.6 mg/dLNormal0.1 - 0.9 mg/dLFTMC RemisolCalcium [Mass/Vol]8.9 mg/dLNormal8.9 - 11.1 mg/dLFTMC RemisolChloride [Moles/Vol]107 mmol/BPugsua722 - 111 mmol/LFTMC RemisolCO2 [Moles/Vol]22 mmol/L Tnzjws61 - 31 mmol/LFTMC RemisolCreatinine [Mass/Vol]0.6 mg/dLNormal0.5 - 1.3 mg/dLFTMC RemisolGFR/1.73 sq M.predicted among blacks MDRD (S/P/Bld) [Vol rate/Area]mL/min/1.73 f7Jniqla>=59mL/min/1.73 m2FT Chem SGFR/1.73 sq M.predicted among non-blacks MDRD (S/P/Bld) [Vol rate/Area]mL/min/1.73 u4Sboyab >=59mL/min/1.73 m2FT Chem SGlobulin (S) [Mass/Vol]3.3 g/dLNormal1.4 - 4.0 gm/dLFTMC RemisolGlucose [Mass/Vol]99 mg/gUKqqmrq54 - 199 mg/dLFTMC Remisol Potassium [Moles/Vol]3.5 mmol/LNormal3.5 - 5.3 mmol/LFTMC RemisolProtein [Mass/Vol]6.9 g/dLNormal6.0 - 7.8 gm/dLFTMC RemisolSodium [Moles/Vol]136 mmol/L Rvlsne400 - 145 mmol/LFTMC RemisolUrea nitrogen [Mass/Vol]8 mg/dLNormal5 - 21 mg/dLFTMC RemisolUrea nitrogen/Creatinine [Mass ratio]13 mg/ruQblfjd00 - 20FTMC RemisolHEMATOLOGYOrdered By: SYSTEM SYSTEM on 63-02-1858Gvthgxkij/100 WBC (Bld) 0.3 %Normal0.0 - 2.0 %[facility] [...] 7.5 E9/LFTMC HemeAutoSSHEMATOLOGYOrdered By: Teena Quiroz on 28-97-9586Kxvmlhuwufb distribution width (RBC) [Ratio]12.9 %Normal 10.9 - 14.2 %[facility] HemeAutoSSHematocrit (Bld) [Volume fraction]33.6 %Low34.0 - 46.0 %[facility] HemeAutoSSHemoglobin (Bld) [Mass/Vol]11.5 g/dLLow12.0 - 16.0 gm/dL [facility] HemeAutoSSMCH (RBC) [Entitic mass]28.5 zlQlxfat99.0 - 34.0 pgFTMC HemeAutoSSMCHC (RBC) [Mass/Vol]34.1 g/xILkofrt93.4 - 36.0 gm/dLFTMC HemeAutoSS MCV (RBC) [Entitic vol]83.5 iJMzfjzk15.0 - 100.0 fLFTMC HemeAutoSSPlatelet mean volume (Bld) [Entitic vol]8.1 fLNormal6.4 - 10.8 fLCLAREMORE [facility] [place] HemeAutoSSPlatelets (Bld) [#/Vol]271.0 E9/IEuegbe624.0 - 500.0 E9/[facility] HemeAutoSSRBC (Bld) [#/Vol] 4.0 E12/LLow4.3 - 5.9 E12/[facility] HemeAutoSSWBC corrected for nucl RBC Auto (Bld) [#/Vol]13.9 E9/LHigh4.0 - 11.0 E9/[facility] HemeAutoSSURINALYSISOrdered By: Deirdre Gilliam on 96-16-0026Thkzopkj LM Ql (Urine sed)Trace /HPFNormalTrace/HPFFT UA Auto SSBilirubin Ql (U)Negative (07/14/22 5:00 AM)NormalNegativeCLAREMORE INDI[facility] [place] UA Auto SSClarity (U)Clear (07/14/22 5:00 AM)NormalClearFCLAREMORE [facility]DI[facility] [place] UA Auto SSColor (U)Yellow (07/14/22 5:00 AM)NormalYellowCLAREMORE INDIAN [facility] [place] UA Auto SSEpithelial cells.squamous LM.HPF (Urine sed) [#/Area]3-4 /HPFNormal0-2/HPFMC UA Auto SSGlucose Test strip (U) [Mass/Vol]Negative (07/14/22 5:00 AM)NormalNegativeCLAREMORE [facility]DI[facility] [place] UA Auto SSHemoglobin Ql (U)Trace *ABN* (07/14/22 5:00 AM)Invalid Interpretation CodeNegativeCLAREMORE INDIAN [facility] [place] UA Auto SSKetones (U) [Mass/Vol]Negative (07/14/22 5:00 AM)NormalNegativeCLAREMORE [facility] [place] UA Auto SSLithium.plasma/[place].RBC (Bld) [Mass ratio]0-3 /HPFNormal0-3/HPFCLAREMORE [facility]DI[facility] [place] UA Auto SSMucus Ql (Urine sed)Trace (07/14/22 5:00 AM)NormalCLAREMORE INDIAN [facility] [place] UA Auto SSNitrite Ql (U)Negative (07/14/22 5:00 AM)NormalNegativeCLAREMORE [facility] [place] UA Auto SSpH (U)6.0 *NA* (07/14/22 5:00 AM)Invalid Interpretation Code5.0 - 9.0CL[facility] [place] UA Auto SSProtein (U) [Mass/Vol]Negative (07/14/22 5:00 AM)NormalNegativeCLAREMORE INDI[facility] [place] UA Auto SSSpecific gravity (U) [Rel density] 1.020 *NA* (07/14/22 5:00 AM)Invalid Interpretation Code1.005 - 1.030[facility] [place] Auto SSUA Spec DescClean Catch (07/14/22 5:00 AM)NormalCLAREMORE INDIAN [facility] [place] UA Auto SSUrobilinogen Qn (U)0.0335166 {Aspen'U}/dLNormal0.0 - 1.0 EU/dLCLAREMORE INDIAN [facility] [place] UA Auto SSWBC Auto Ql (U)Negative (07/14/22 5:00 AM)NormalNegativeCLAREMORE [facility] [place] UA Auto SSWBC LM.HPF (Urine sed) [#/Area]0-5 /HPFNormal0-5/HPFCLAREMORE INDI[facility] [place] UA Auto SSCHEMISTRYOrdered By: SYSTEM SYSTEM on 34-84-0884Mdevydd [Mass/Vol]4.4 g/dLNormal3.3 - 5.0 gm/dLFTMC Remisol Albumin/Globulin [Mass ratio]1.1 {ratio}Normal1.1 - 2.2FT[facility] RemisolALP [Catalytic activity/Vol]64 [iU]/sSixuwe12 - 98 Int._Unit/LFTMC RemisolALT No additional P-5'-P [Catalytic activity/Vol]107 [iU]/dHigh6 - 46 Int._Unit/LFTMC RemisolAST [Catalytic activity/Vol]63 [iU]/dHigh5 - 43 Int._Unit/LFTMC Remisol Bilirubin [Mass/Vol]1.5 mg/dLHigh0.0 - 1.1 mg/dLFTMC RemisolBilirubin.direct [Mass/Vol]0.2 mg/dLNormal0.1 - 0.4 mg/dLFTMC RemisolBilirubin.indirect [Mass or moles/Vol]1.3 mg/dLHigh0.1 - 0.9 mg/dLFTMC RemisolCholesterol [Mass/Vol]193 mg/fJIrcrkq082 - 200 mg/dLFTMC RemisolCholesterol in HDL [Mass/Vol]64 mg/dL Invalid Interpretation CodeFTMC RemisolCholesterol in LDL [Mass/Vol]116 mg/dL Normal<=129mg/dLFTMC RemisolCholesterol in VLDL [Mass/Vol]13 mg/dLNormal7 - 40 mg/dLFTMC RemisolGlobulin (S) [Mass/Vol]3.9 g/dLNormal1.4 - 4.0 gm/dLFTMC RemisolProtein [Mass/Vol]8.3 g/dLHigh6.0 - 7.8 gm/dLFTMC RemisolTriglyceride [Mass/Vol]67 mg/dLNormal<=149mg/dLFTMC RemisolCOAGULATIONOrdered By: Courtney Case on 05-35-7319CBK Coag (PPP) [Relative time]1.0 {INR}Invalid Interpretation Code [facility] Auto CoagPT Coag (PPP) [Time]12.4 hCcfsag34.2 - 12.9 second(s)[facility] Auto CoagHEMATOLOGYOrdered By: SYSTEM SYSTEM on 78-86-2609Cjlzuhbzu/100 WBC (Bld)0.7 %Normal0.0 - 2.0 %[facility] HemeAutoSSBasophils/Leukocytes Auto (Bld) [Pure # fraction]0.0 E9/LNormal0.0 - 0.2 E9/LFTMC HemeAutoSSEosinophils/100 WBC (Bld)3.2 %Normal0.0 - 8.0 %[facility] HemeAutoSSEosinophils/Leukocytes Auto (Bld) [Pure # fraction]0.2 E9/LNormal0.0 - 0.5 E9/LFTMC HemeAutoSSLymphocytes/100 WBC (Bld) 31.9 %Nxymno16.0 - 50.0 %[facility] HemeAutoSSLymphocytes/Leukocytes Auto (Bld) [Pure # fraction]1.9 E9/LNormal1.0 - 4.0 E9/LFTMC HemeAutoSSMonocytes/100 WBC (Bld)9.1 %Normal4.0 - 14.0 %[facility] HemeAutoSSMonocytes/Leukocytes Auto (Bld) [Pure # fraction]0.5 E9/LNormal0.2 - 1.0 E9/LFTMC HemeAutoSSNeutrophils/100 WBC (Bld) 55.1 %Akndgm82.0 - 75.0 %[facility] HemeAutoSSNeutrophils/Leukocytes Auto (Bld) [Pure # fraction]3.3 E9/LNormal2.0 - 7.5 E9/LFTMC HemeAutoSSHEMATOLOGYOrdered By: Kayleigh Ward on 33-83-6715Docxwdfmfcc distribution width (RBC) [Ratio]12.9 % Rxdkih68.9 - 14.2 %[facility] HemeAutoSSHematocrit (Bld) [Volume fraction]40.1 %Normal 34.0 - 46.0 %[facility] HemeAutoSSHemoglobin (Bld) [Mass/Vol]13.2 g/wEBcdmeo17.0 - 16.0 gm/dLFTMC HemeAutoSSMCH (RBC) [Entitic mass]27.7 qvAnifcr96.0 - 34.0 pgFTMC HemeAutoSSMCHC (RBC) [Mass/Vol]32.8 g/hGHtqhdc78.4 - 36.0 gm/dLFTMC HemeAutoSS MCV (RBC) [Entitic vol]84.3 cFKxobkt20.0 - 100.0 fLFTMC HemeAutoSSPlatelet mean volume (Bld) [Entitic vol]8.5 fLNormal6.4 - 10.8 fLFTMC HemeAutoSSPlatelets (Bld) [#/Vol]299.0 E9/CWmcfck679.0 - 500.0 E9/LFTMC HemeAutoSSRBC (Bld) [#/Vol] 4.8 E12/LNormal4.3 - 5.9 E12/LFTMC HemeAutoSSWBC corrected for nucl RBC Auto (Bld) [#/Vol]5.9 E9/LNormal4.0 - 11.0 E9/LFTMC HemeAutoSSLMPon 06-83-1261Mmjw risk assessmenta) No falls within the last tgboCS-EUUUO-Ohmvkn 320 Work Phone: Last menstrual period start ofgerwbvfeFZ-BQQZN-Jlefko 320 Work Phone: Tobacco use status CPHSb) IaRI-ZJSQN-Lxbgbr 320 Work Phone: OB/VIDEO POKER FLOORMAN - Office Visiton 71-27-1162NM/VIDEO POKER FLOORMAN - Office VisitDiagnoses/Problems Assessed Endometriosis (617.9) (N80.9) Orders Start: Orilissa 200 MG Oral Tablet; take 1 tablet by mouth twice a day Provider Impressions 26 yo 1. 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 History of Present Ywhxcne45 yo presents as a follow up for [...] again engaged x 1 year working at [employer] in [place] Review of Systems Constitutional: no fever, no [...] hours Vitals Vital Signs Recorded: 09Feb2022 11:41AM Ubedkwjx447 Luvggaqtt42 Height5 ft 2 in Ecypad553 lb BMI Ktgygpagxm80.51 kg/m2 BSA Calculated1.61 Tobacco Useb) No Fall [...] NormalUH TouchworksXR KNEE LEFT (MIN 4 VIEWS)on 84-07-8286UN KNEE LEFT (MIN 4 VIEWS)EXAM: XR KNEE [...] by: Joe Lopez MD 09/29/21 Final resultNormalMercy Ochsner Medical CenterOB/VIDEO POKER FLOORMAN - Office Visiton 31-90-9358NI/VIDEO POKER FLOORMAN - Office VisitDiagnoses/Problems Assessed Anxiety (300.00) (F41.9) Orders Start: FLUoxetine HCl - 20 MG Oral Capsule; TAKE 1 CAPSULE Daily Provider Impressions 26 yo 1. 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 History of Present Okskrfq89 yo with endometriosis was on norethindrone d/c'd [...] Every 6 hours Vitals Vital Signs Recorded: 46Obt5090 01:19PM Pakpmqml394 Tfkubtbgn71 Height5 ft 2 in Lxvelv447 lb BMI Uktpjlxdur89.58 kg/m2 BSA Calculated1.53 Tobacco Useb) No Fall Screeninga) No falls within the last year ZMP86Pql8109 Pain Scale0 Signatures Electronically signed by : Charlene Rodriguez DO; Jun 03 2021 10:55AM EST (Author) NormalUH TouchworksChlamydia sp identified Org specific cx Nom (Genital specimen)Ordered By: Jackelyn Dela Cruz on 04-71-7889Xnfjfeou Chlamydia Screen NegativeNegativeSWyandot Memorial HospitalHBV surface Ag IA Qlon 29-31-2805Waixbqqa Hepatitis B Surface AgNegativeNegative, None DetectedSumma HealthHIV 1+2 Ab and HIV1 p24 Ag IA.rapid Nom (S/P/Bld)on 25-21-6146IFH-1/HIV-2 AbNegativeSumma HealthNo Panel Informationon 84-49-7725Pvwhhiof Gonorrhea ScreenNegativeNegativeSumne Health External Rubella IGG QuantitationPositiveSumma Healthmma HealthNo Panel InformationOrdered By: Jackelyn Dela Cruz on 51-79-1131Rwgeq HealthReagin Ab RPR Ql (S)on 24-59-4866Opcbtxaa RPRNon-ReactiveBorderline, Nonreactive, Weakly Reactive, EquivocalSumma HealthOB/VIDEO POKER FLOORMAN - Office Visiton 43-59-1767UX/VIDEO POKER FLOORMAN - Office VisitDiagnoses/Problems Assessed Endometriosis (617.9) (N80.9) Never smoker Orders Stop: Norethindrone Acetate 5 MG Oral Tablet Tobacco Use Screening; Status:Complete; Done: 37Dsr5909 Provider Impressions 26 yo 1. endometriosis: rx'd norethindrone referral to pelvic floor PT rtc in 3-6 months if continues to have pain, will consider centrally acting neuromodulator Chief Complaint Patient presents today for f/u for endometriosis PAP per patient 2019 WNL Document Improvement Specialist declined -CATY,CLINICAL NURSE LEADER LMP 04/11/21 History of Present Xfiifiv60 yo with endometriosis bleeding once per month, [...] 2021 11:04AM EST (Author) NormalUH TouchworksTobacco Screening.on 69-46-8955Qjoi risk assessmenta) No falls within the last jzwoAI-CRZLT-Nhwoef 320 Work Phone: Lasi menstrual period start rpza94Meu6763 CQ-QEYJS-Uergvi 320 Work Phone: Tobacco Screening.b) DcZI-IPMUD-Ukcjyo 320 Work Phone: Radiologyon 99-30-1654GD Kidney - bilateralNormal OR-Srigmuk-Hxayuevay Work Phone: US RENAL BILATon 36-99-1239XS RENAL BILATMRN: [id number] Patient Name: JUHI COPE STUDY: US RENAL BILAT; 04/14/2021 1:14 pm INDICATION: Recurrent UTI. COMPARISON: None. ACCESSION NUMBER(S): [id number] ORDERING CLINICIAN: TERI CHAU TECHNIQUE: Multiple images [...] renal ultrasound. Electronically signed by: GENEVIEVE BREEN MDGeisinger St. Luke[facility] Office Visit (Urology)on 24-63-7338Mmugqj-up visitDiagnoses/Problems Assessed Recurrent UTI (599.0) (N39.0) Orders Recurrent UTI Start: Nitrofurantoin Monohyd Macro 100 MG Oral Capsule; TAKE 1 CAPSULE Other Please take one capsule after sexual intercourse to prevent UTI Rx By: Teri Chau; Dispense: 30 Days ; #:30 Capsule; Refill: 11;For: Recurrent UTI; ROSY = N; Verified Transmission to ehealthtrackerR WHILL 987 Ultrasound Kidney Bilateral; Status:Hold For - Scheduling; Requested for:08Udh5108; Perform:[facility]; Due:92Rnw4775; Last Updated By:Isela Terrazas; 04/01/2021 9:16:17 AM;Ordered; [...] UTI; ROSY = N; Verified Transmission to ehealthtrackerR WHILL 98Skipjump Provider Impressions 26 year old female with [...] Booth at [facility] in [place], noting she was only treated with medications and urethral dilation for a supposed stricture.Denies gross hematuria. Patient is a non-smoker. Urine culture from [facility] on 03/04/21 was positive for E. coli, [...] the presence of Dr. Chau. Teri Stokes, agreethmicaela all documentation by the scribe, Patricia Ruano, [...] NPV - recurrent UTI History of Present Dllhhox89 year old female with history of endometriosis [...] Booth at [facility] in [place], noting she was only treated with medications [...] content not included)...NormalUH TouchworksNM GASTRIC EMPTYING SOLIDon 24-02-5780MB GASTRIC EMPTYING SOLID* * *Final Report* * * DATE OF EXAM: Nov 05 2020 12:26PM [facility] 0017 - NM GASTRIC EMPTYING SOLID [...] 4 HOURS IS CONSISTENT WITH MILD GASTROPARESIS. Protocol Manager: PSCB Transcribe Date/Time: Nov 05 2020 1:09P Dictated by : SIDDHARTH PEREA MD This examination was interpreted and the report reviewed and electronically signed by: SIDDHARTH PEREA MD on Nov 05 2020 1:24PM EST [id number] HospitalANES POSTPROC EVALon 90-47-0996QCQP POSTPROC EVALHNO ID: [id number] Author: Austin Story Service: ? Author Type: Anesthesiologist Type: Anesthesia Postprocedure Evaluation Filed: 10/25/2020 2:52 PM Note Text: POST ANESTHESIA EVALUATION NOTE : 1995 Procedure Summary Date: 10/25/20 Room / Location: AV ENDO 01 / AV ENDO Anesthesia Start: 1324 Anesthesia Stop: 1352 Procedures: COLONOSCOPY (N/A Colon Sigmoid) EGD (N/A Throat) Diagnosis: Gastroesophageal reflux disease without esophagitis Surgeons: Malcolm rCuz Responsible Provider: Austin Story Anesthesia Type: MAC [...] October 25, 2020 TIME: 2:52 PM CSN: [id number] HospitalANES PRE-OPon 16-33-3228YUBA PRE-OPHNO ID: [id number] Author: Austin Story Service: ? Author Type: [...] October 25, 2020 TIME: 1:08 PM CSN: [id number] Affairs Medical Center-[facility] PATHOLOGYon 10-25-2020 SURGICAL PATHOLOGYSpecimen originated from [facility] Specimen #: [id number] Submitting Physician: MALCOLM CRUZ MD FINAL DIAGNOSIS 1. Small bowel, biopsy (A) - Small bowel mucosa with no pathologic diagnostic abnormality; negative for celiac disease, granulomas and dysplasia. 2. Stomach, biopsy (B) - Gastric oxyntic-type mucosa with no pathologic diagnostic abnormality; see comment. /[facility] 10/26/2020 COMMENT 2. No microorganisms [...] in one cassette. Gross examination performed at [facility], [address] [place] [address] 10/25/2020 7:59:40 PM Date of Report: 10/26/2020 Date of Procedure: 10/25/2020 Date of Receipt: 10/25/2020 Submitted by: MALCOLM CRUZ MD Location: AVEN Diagnostic interpretation performed at [facility], [address] [place] [address]. CLIA Number: [id number] Clinic Reference LabComment on above:Performed By: #### S #### See report for performing lab information.SURGICAL PATHOLOGYSpecimen originated from [facility] Specimen #: [id number] Submitting Physician: MALCOLM CRUZ MD FINAL DIAGNOSIS 1. Small bowel, biopsy (A) - Small bowel mucosa with no pathologic diagnostic abnormality; negative for celiac disease, granulomas and dysplasia. 2. Stomach, biopsy (B) - Gastric oxyntic-type mucosa with no pathologic diagnostic abnormality; see comment. /[facility] 10/26/2020 COMMENT 2. No microorganisms [...] in one cassette. Gross examination performed at [facility], [address] [place] [address] 10/25/2020 7:59:40 PM Date of Report: 10/26/2020 Date of Procedure: 10/25/2020 Date of Receipt: 10/25/2020 Submitted by: MALCOLM CRUZ MD Location: AVEN Diagnostic interpretation performed at [facility], [address] [place] [address]. CLIA Number: [id number] Rivers Medical Center/ GROUP TESTon 70-26-7834CSC [facility]owa County Memorial HospitalComment on above: Performed By: #### VERAB #### [facility] [address] [place], [place] [address]HU TYPEPositiveNormalUH Stoughton HospitalComment on above: Performed By: #### VERAB #### [facility] [address] [place], [place] [address]Szvkq Surgical Pathology Departmenton 69-83-7296Ftiaj Surgical Pathology DepartmentName JUHI COPE Pathologist: ASHLEY HURTADO MD Date of Procedure: 09/01/2020 Date Received: 09/01/2020 Date Reported 09/03/2020 Submitting Physician: CHARLENE RODRIGUEZ D.O. Location: [facility] External # FINAL DIAGNOSIS A. LEFT [...] D. Right pelvic sidewall peritoneum are 2 saov-wgp-qvu, irregular fragments of tissue measuring 1.3 x [...] in toto in one cassette. SB amisha/09/02/2020 [facility] Department of Pathology [address] [place], [place] [address]ZvjzdaPRAtrium Health Wake Forest Baptist High Point Medical CenterComment on above:Performed By: #### [facility] #### [facility] Surgical Pathology Department [address] [place] [address]Axytdgp and Physical - Surgery > 30 dayson 24-07-2686Cyeeyzs and Physical - Surgery > 30 daysHistory [...] T&S: O+, COVID-19: negative OB Hx: None. News Broadcaster Hx: As above. PMHx: endometriosis Surg Hx: diagnostic laparoscopy, appendectomy (2016) Meds: Meloxicam, [place]-Linyah, Norethindrone acetate Social Hx: No tobacco, no [...] the note. I personally evaluated the patient un06-Pun-8229 Attending Provider Inpatient Certification StatementObservation patient/other outpatient visits Electronic Signatures: Charlene Rodriguez () (Signed 01-Sep-2020 10:04) Authored: Note Completion Co-Signer: History of Present Illness, Home Medication Review, Impression/Procedure, ERAS, Physical Exam, Consent, Note Completion Chelsie Leal (Resident)) (Signed 31-Aug-2020 15:44) Authored: History of Present Illness, Home Medication Review, Impression/Procedure, ERAS, Physical Exam, Consent, Note Completion Last Updated: 01-Sep-2020 10:04 by Charlene Rodriguez ()[facility] Medical CenterHomegoing Instructionson 88-42-0624Jynzjrbwd InstructionsAdditional Instructions: Handouts Given: Topic 1Anesthesia Homegoing Instructions Topic 2Surgical Site Infection Handout Topic 3New Medication Education Topic 4Suggamedex handout Electronic Signatures: Aminata Gomez) (Signed 01-Sep-2020 16:07) Authored: Additional Instructions Last Updated: 01-Sep-2020 16:07 by Aminata Gomez (DIALLO)[facility] Medical CenterPatient Profile - Preop v2on 34-49-5630Qzknivx Profile - Preop o1Ujttsje: Initial Info: How to be Addressedalexis Spoken Language PreferredEnglish Are you currently using the Personal Electronic Health Record or [facility] Stated Reason for Admissionseeing if my endometriosis is back Primary Contact Name and Numberlogan [phone] Patient Belongingsclothing locker glasses with bf Medications Brought to Hospitalno General Health: Weight in kg55.6 kilogram(s) Weight in obm799.5 pound(s) Weight Methodactual (measured) Scale Typestanding Height [...] Arrangementshouse Lives Withparent(s) Resource/Environmental Concernsnone [facility]ticipated [facility] Anticipated at Transitionnone Substance: Current [...] Learning Preferencesverbal instruction Cultural Considerationsnone Developmental Considerationsnone Episcopal Considerationsnone Other learner availableno Falls RiskPatient location auto qualifies him/her for HIGH RISK. Are there any cultural, spiritual, worship practices/values/needs that are important for us to [...] Physical - Surgery > 30 days 01-Sep-2020 03:42[facility] Medical CenterPreop Checkliston 06-69-0977Yjnnx Checklist Preop Checklist: Preop Checklist: Arrival Egln26-Mmo-2673 Arrival Time12:30 Procedure Typelaparoscopic endometriosis excision NPO Szotzr63-Pof-8615 00:00 ID Band Onyes Allergy Bandno known [...] Last Updated: 01-Sep-2020 12:35 by Sierra Kraft (DIALLO)[facility] Medical CenterANTIBODY IDENT.on 16-46-9849JCZQDTBC IDENT.SEE BELOWNoFormerly Albemarle HospitalComment on above:Result Comment: NO CLINICALLY SIGNIFICANT ANTIBODIES IDENTIFIED.Performed By: #### ABID #### [facility] [address] [place], [place] [address]WJHot 48-74-5725Gqfcpkokovo distribution width (RBC) [Ratio] 12.1 %Tdeboe52.5 - 14.5Atl[facility], [facility] City CampusComment on above:Performed By: #### CBC #### [address] [id number] (Bld) [Volume fraction]39.6 %Smcrjw29.0 - 46.0[facility], [facility] CampusComment on above:Performed By: #### CBC #### [address] [id number] (Bld) [Mass/Vol]12.6 g/vBQvonhu96.0 - 16.0[facility], [facility] CampusComment on above:Performed By: #### CBC #### [address] [id number] (RBC) [Mass/Vol]31.8 g/dLLow32.0 - 36.0[facility], [facility] CampusComment on above:Performed By: #### CBC #### [address] [id number] (RBC) [Entitic vol]90 dQBmtaze96 - 100Atl[facility], [facility] CampusComment on above:Performed By: #### CBC #### [address] 052274599Apblbsnvl (Bld) [#/Vol]333 10*3/tDCxandw711 - 450[facility], [facility] CampusComment on above:Performed By: #### CBC #### [address] [id number] x10E12/LNormal4.00 - 5.20[facility] Comment on above:Performed By: #### CBC #### [address] [id number] (Bld) [#/Vol]5.6 10*3/uLNormal4.4 - 11.3[facility], [facility] CampusComment on above:Performed By: #### CBC #### [address] [id number] 2019, SCREEN ASYMPTOMATICon 57-19-5825UIWK-CoV-2 (COVID-19) RNA TENA+probe Ql (Unsp spec)Not detectedNormalNot DetectedAtlantiCare Regional Medical Center, [place] CampusComment on above:Result Comment: This assay is designed [...] patient management decisions. Fact sheet for providers: https://www.fda.gov/media/179152/download Fact sheet for patients: https://www.fda.gov/media/542308/download This test has received FDA Emergency Use Authorization (EUA) and has been verified by [facility] ([facility]). This test is only authorized for the duration of time that circumstances exist to justify the authorization of the emergency use of in vitro diagnostic tests for the detection of SARS-CoV-2 virus and/or diagnosis of COVID-19 infection under section 564(b)(1) of the Act, 21 U.S.C. 360bbb-3(b)(1), unless the authorization is terminated or revoked sooner. [facility] is certified under CLIA-88 as qualified to perform high complexity testing. Testing is performed in the [facility] laboratories located at [address] [place] [address].Performed By: #### COVSC #### [address] Specimen SourceNasal, NasopharyngealPark Nicollet Methodist HospitalComment on above:Performed By: #### COVSC #### [place], [place] [address]TYPE + SCREENon 45-67-8765NGH [facility] MED[facility] SPECIALTY HOS[facility]ITAL - SOUTHEAST OHIOONoFormerly Albemarle HospitalComment on above:Performed By: #### T+S #### [facility] [address] [place] [id number] TYPEPositiveTulane University Medical CenterComment on above: Performed By: #### T+S #### [facility] [address] [place] [id number] TYPECanceledPark Nicollet Methodist HospitalComment on above:Order Comment: TEST TYPE + SCREEN WAS CANCELLED, 08/30/2020 13:37 JOP. Performed By: #### T+S #### [address] TYPECanceledNormLongmont United HospitalComment on above:Order Comment: TEST TYPE + SCREEN WAS CANCELLED, 08/30/2020 13:37 JOP. Performed By: #### T+S #### [facility] [address] [place], [place] [address]HJYNnj 56-00-4209DGNNTbqzomh:Juhi Cope MRN: Height:5' 2 (1.575 m) Weight:120 [...] for the following basenames: K,HCT Progress Notes ([facility] REJ AV4): Jaquelin Wesley Ma 10/19/2020 2:35 [...] 1 10 oz. Bottle of Magnesium Citrate (Lemon/Solomon) ? A test for COVID 19 test [...] toast without seeds (not multigrain); pretzels; waffles, Luxembourger toast and pancakes; white rice, noodles, pasta, macaroni, peeled cooked potatoes; Special K, Rice Krispies or [place] Flakes cereals; ripe bananas; melons (except watermelon [...] beverages such as chi aislinn or lemon-port lions soda; Gatorade? or other sports drinks (not [...] make sure you have a responsible adult delivery driver to take you home after procedure. Due to having sedation, you may not drive the rest of the day. ? If you need to reschedule, please call [phone] ?Date/Provider Dr Cruz Procedure:colonoscpy Facility:[facility] Prep ordered( if aware):miralax Knowledge of prep instructions:posted to Survature Diabetic:no Blood Thinners:no Pacemaker with defibrillator:no left message for patient to return call. Nurse triage please give below message. PLEASE READ PATIENT INSTRUCTIONS BELOW. THANK YOU.[facility] CenterPROGRESS on [id number] ID: [id number] Author: Leon EliRtFito Pittman Service: Radiology Author Type: Field Secretary Type: Progress Notes Filed: 07/29/2020 11:06 AM [...] BY: RT Daya July 29, 2020 11:01 [facility] 2V SUPINE W UPR/DECUB/CTLon [id number] ABD 2V SUPINE W UPR/DECUB/CTL* * *Final [...] structures are normal. No other significant abnormality. Protocol Manager: DAVDI Transcribe Date/Time: Jul 29 2020 11:19A Dictated by : LALI ORNELAS MD This examination was interpreted and the report reviewed and electronically signed by: LALI ORNELAS MD on Jul 29 2020 11:19AM EST [id number] Vital Signs Date TimeVital SignValuePerforming VoetsccerUpwsldzh96-03-0495 15:04-0500Body mass index (BMI) [Ratio]30.36 kg/y0Rszcy Kiesha DO Work Phone: 1(068)912-[address] [place], [place] [address]Pbagkbppbc34-33-9115 15:04-0500Body jsevnf23.3 kg Nathan Kiesha DO Work Phone: [phone] [place] [address]-05-2025 15:04-0500Diastolic blood xtdrpols16 mm[Hg]Nathan Kiesha DO Work Phone: [phone])[address] [place] [address]-05-2025 15:04-0500Systolic blood dmxwkyte206 mm[Hg]Nathan Kiesha DO Work Phone: 1(518)[address] [place], [place] 3103510-22-2025 16:04-0400Body mass index (BMI) [Ratio]29.78 kg/f6Cxyzd Kiesha DO Work Phone: 1(462)[address] [place], [place] 3103510-22-2025 16:04-0400Body mzdavh02.85 kgCorey Kiesha DO Work Phone: 1(640)[address] [place], [place] 3103510-22-2025 16:04-0400Diastolic blood ryohzueu89 mm[Hg]Nathan Kiesha DO Work Phone: 1(628)[facility] [place], [place] [address]Hotwrdbefm74-24-9024 16:04-0400Systolic blood ffzgczeh349 mm[Hg]Nathan Kiesha DO Work Phone: 1(154)[address] [place] [address]-16-2025 10:34-0400Body mass index (BMI) [Ratio]29.26 kg/d6GovbhsodMadhuri Monroy MD Work Phone: 1(440)555-[address] [place], [place] 6871410-16-2025 10:34-0400Body .58 kgMadhuri Monroy MD Work Phone: 1(780)564-[address] [place], [place] 6871410-16-2025 10:34-0400Diastolic blood mm[Hg]Madhuri Monroy MD Work Phone: 1(419)[address] [place], [place] 8800110-16-2025 10:34-0400Systolic blood ehhskdwu202 mm[Hg]Madhuri Monroy MD Work Phone: 1(419)[address] [place], [place] 8800110-10-2025 14:48-0400Body .5 cmMine Denise MD Work Phone: 1(419)[address] [place], [place] 8800110-10-2025 14:48-0400Body mass index (BMI) [Ratio]29.04 kg/s2VtcspoMine Denise MD Work Phone: 1(419)[address] [place], [place] 8800110-10-2025 14:48-0400Body qaiykq41.03 kgMine Denise MD Work Phone: 1(419)[address] [place], [place] 8800110-10-2025 14:48-0400Diastolic blood szydvtmr50 mm[Hg]Mine Denise MD Work Phone: 1(419)[address] [place], [place] 8800110-10-2025 14:48-0400Heart rate 104 /minMine Denise MD Work Phone: 1(419)[address] [place], [place] 8800110-10-2025 14:48-0400Systolic blood atqqkkfz942 mm[Hg]Mine Denise MD Work Phone: 1(419)[address] [place], [place] 8800110-09-2025 15:54-0400Body mass index (BMI) [Ratio]29.41 kg/p2IrdprxrdSteph Keane PEDIATRIC CLINICAL NURSE SPECIALIST Work Phone: [phone])[address]10-09-2025 15:54-0400Body zemicd26.94 kgSteph Keane PEDIATRIC CLINICAL NURSE SPECIALIST Work Phone: [phone] [place], [place] 3103510-09-2025 15:54-0400Diastolic blood yukxlecl54 mm[Hg]Steph Keane PEDIATRIC CLINICAL NURSE SPECIALIST Work Phone: 1(631)[address] [place], [place] 3103510-09-2025 15:54-0400Systolic blood syqoguua228 mm[Hg]Steph Keane PEDIATRIC CLINICAL NURSE SPECIALIST Work Phone: [phone])[address] [place], [place] 3103510-02-2025 15:37-0400Body mass index (BMI) [Ratio]29.23 kg/j1RdpcqepeSteph Keane PEDIATRIC CLINICAL NURSE SPECIALIST Work Phone: [facility] InstituteQxguqznjyl59-86-9621 15:37-0400Body xgzosq99.48 kgSteph Keane PEDIATRIC CLINICAL NURSE SPECIALIST Work Phone: [facility] InstituteJkjehoyiyz05-76-3036 15:37-0400Diastolic blood mm[Hg]Steph Keane PEDIATRIC CLINICAL NURSE SPECIALIST Work Phone: [facility] InstituteBskvjwuewu38-28-0668 15:37-0400Systolic blood kghziuib058 mm[Hg]Steph Keane PEDIATRIC CLINICAL NURSE SPECIALIST Work Phone: [facility] InstituteQwzhagzhbs71-58-4000 15:55-0400Body mass index (BMI) [Ratio]29.45 kg/j7NckktsTeena Sarmiento RN Work Phone: 1(989)204-[address] [place], [place] 6871409-29-2025 15:55-0400Body .03 kgTeena Sarmiento RN Work Phone: 1(074)630-[address] [place], [place] 6641509-17-2025 14:32-0400Body mass index (BMI) [Ratio]27.82 kg/m7Asspc Kiesha DO Work Phone: [facility] InstituteLxinxzayfn80-68-1241 14:32-0400Body kg Nathan Kiesha DO Work Phone: [place] [address]Ypttrtasxb28-79-4965 14:32-0400Diastolic blood vrpuvner64 mm[Hg]Nathan Kiesha DO Work Phone: [place] [address]Tkovvrvrvr49-79-5716 14:32-0400Systolic blood stepjmie604 mm[Hg]Nathan Kiesha DO Work Phone: [facility] InstituteQtchgdafzf11-85-6401 15:36-0400Body hxcass839.5 cmGeorge Kaftan DO Work Phone: noSaint [facility] Health CenterEloplzzdue71-62-8904 15:36-0400Body mass index (BMI) [Ratio]27.62 kg/r4Frxefg Kaftan DO Work Phone: [facility] InstituteLdnymwmzqq47-49-4288 15:36-0400Body temperature 97.11 [degF]Eliceo Beltran DO Work Phone: [facility] InstituteHnohstiuuy36-89-9654 15:36-0400Body fgranw90.49 kgGeorsherita Beltran DO Work Phone: [facility] InstituteGhclnqdrnf09-84-2726 15:36-0400Diastolic blood ydqhsiix76 mm[Hg]Eliceo Beltran DO Work Phone: [facility] InstituteJtlwgkzajs17-48-0626 15:36-0400Heart rate97 /min Eliceo Beltran DO Work Phone: [facility] InstituteXwzkozlbfu18-16-9872 15:36-7958CxV5% (BldA) [Mass fraction]98 %Eliceo Beltran DO Work Phone: [facility] InstituteJsyechrcis51-20-2128 15:36-0400Systolic blood csqlokha401 mm[Hg]Eliceo Beltran DO Work Phone: [facility] InstituteWqqboyojeh97-80-2114 15:42-0400Body mass index (BMI) [Ratio]26.48 kg/f2Jlotg Fazio DO Work Phone: 1(740)341-[address] [place], [place] [address]Pftvrvunyq52-58-4866 15:42-0400Body udifsa49.68 kgCorepearl Cabrerao DO Work Phone: [facility] InstituteQxrqhrvecr22-04-6054 15:42-0400Diastolic blood yqrpfepc71 mm[Hg]Nathanpearl Cbarerao DO Work Phone: 1([phone] [place], [place] [address]Suoeefgbuh91-24-7409 15:42-0400Systolic blood unoribbe908 mm[Hg]Nathanpearl Cabrerao DO Work Phone: 1([phone] [place], [place] [address]Awgpzzrzbi43-10-1000 14:33-0400Body mass index (BMI) [Ratio]26.73 kg/e6Wrqwh Kiesha DO Work Phone: [facility] InstituteQvjpqsoydt59-17-9226 14:33-0400Body edunav60.28 kgCorey Kiesha DO Work Phone: [phone]-[facility] InstituteYfzetaaapu49-31-8094 14:33-0400Diastolic blood ohyvqsrw31 mm[Hg]Nathan Kiesha DO Work Phone: [facility] InstituteWqhammxutu30-05-9969 14:33-0400Systolic blood kmpuykns893 mm[Hg]Nathan Kiesha DO Work Phone: [facility] InstituteBrwwdstapo31-17-4137 14:45-0400Body mass index (BMI) [Ratio]25.24 kg/t1Mywih Kiesha DO Work Phone: [facility] InstituteSqphurjdts18-26-4721 14:45-0400Body .6 kg Nathan Kiesha DO Work Phone: [facility] InstituteDbyzlvidwf43-50-2343 14:45-0400Diastolic blood tdajgxrf38 mm[Hg]Nathan Kiesha DO Work Phone: [facility] InstituteSowqvpytli77-08-7665 14:45-0400Systolic blood dvuqires564 mm[Hg]Nathan Kiesha DO Work Phone: 1(596)086-[address] [place], [place] [address]Eiiwjdatku53-44-3511 10:29-0400Body mass index (BMI) [Ratio]25.68 kg/m2[facility]06-06-2025 10:29-0400Body mdeohy22.69 kgMiss[facility]02-24-2025 15:08-0500Body mass index (BMI) [Ratio]25.99 kg/d2Swzim Kiesha DO Work Phone: [facility] InstituteRxldxqddvk27-80-8954 15:08-0500Body gowqqn31.47 kgCorey Kiesha DO Work Phone: [facility] InstitutePukskshzpm91-78-6999 15:08-0500Diastolic blood ulbujfxm93 mm[Hg]Nathan Kiesha DO Work Phone: [facility] InstituteDbuwtnhvck63-94-7308 15:08-0500Systolic blood ddryxlqa246 mm[Hg]Nathan Kiesha DO Work Phone: [facility] InstituteFidkkxungy14-89-5169 15:53-0500Body uwvcre940.5 cmGeorge Kaftan DO Work Phone: [facility] InstituteQpiechugli74-98-3951 15:53-0500Body mass index (BMI) [Ratio]25.61 kg/j3Otcbdcmartha Beltran DO Work Phone: [facility] InstituteSrcdviazmg42-32-2255 15:53-0500Body temperature 97.11 [degF]Eliceo Beltran DO Work Phone: [facility] InstituteNeokzniuta51-35-1424 15:53-0500Body jsypui43.5 kg Eliceo Beltran DO Work Phone: [facility] InstituteKbvkvlcanj62-84-9885 15:53-0500Diastolic blood mxibkapo74 mm[Hg]Eliceo Beltran DO Work Phone: [facility] InstituteTyvzfezrxy31-28-3792 15:53-0500Heart rate51 /min Eliceo Beltran DO Work Phone: [facility] InstituteOuzlrljbrr99-87-2556 15:53-0891KmO1% (BldA) [Mass fraction]98 %Eliceo Beltran DO Work Phone: [facility] InstituteXmzwuftjny26-55-5172 15:53-0500Systolic blood ecavdrlg370 mm[Hg]Eliceo Beltran DO Work Phone: [facility] InstituteQzzyztctcy87-85-9537 11:15-0400Body mass index (BMI) [Ratio]25.97 kg/e6Tntke Fazio DO Work Phone: [facility] InstituteWhmdhymoyo65-01-3560 11:15-0400Body qzkbyf47.41 kgCorepearl Cabrerao DO Work Phone: [facility] InstituteSssbznjhwm56-88-0100 11:15-0400Diastolic blood keqorzgf83 mm[Hg]Nathanpearl Cabrerao DO Work Phone: [facility] InstituteRipmfaetgl11-09-5413 11:15-0400Systolic blood ujamrlll505 mm[Hg]Nathan Cabrerao DO Work Phone: [facility] InstituteDjihdkaotf99-37-9945 10:02-0400Body mass index (BMI) [Ratio]25.39 kg/w1Dzclj Kiesha DO Work Phone: 1(419)483-[address] [place], [place] [address]Fqsmshysux43-98-2125 10:02-0400Body .96 kgCorey Kiesha DO Work Phone: 1(601)[facility] [place] [address]-27-2024 10:02-0400Diastolic blood damdvatr06 mm[Hg]Nathan Kiesha DO Work Phone: 1(175)[facility] [place], [place] [address]Pirctgjotp04-87-4110 10:02-0400Systolic blood ztvlyjcy633 mm[Hg]Nathan Kiesha DO Work Phone: 1(273)[facility] [place], [place] [address]Xkroflruas59-12-3008 10:55-0500Body mass index (BMI) [Ratio]28.17 kg/m7Gmndo Kiesha DO Work Phone: 1(533)[address] [place], [place] 3103502-15-2024 10:55-0500Body eskofg48.85 kgCorey Kiesha DO Work Phone: 1(851)[facility] [place], [place] [address]Yfcmkispam43-66-4801 10:55-0500Diastolic blood fnjucqky56 mm[Hg]Nathan Kiesha DO Work Phone: 1(474)[facility] [place] [address]-15-2024 10:55-0500Systolic blood oodcpazv537 mm[Hg]Nathan Kiesha DO Work Phone: 1(417)[facility] [place], [place] [address]Oodggclmig13-78-0688 17:31-0400Body temperature 98.96 [degF][facility]10-18-2023 17:31-0400 Diastolic blood kozoaken17 mm[Hg][facility]10-18-2023 17:31-8795CLZ6 99 %[facility]10-18-2023 17:31-0400Heart xacj090 /Janet [facility]10-18-2023 17:31-0400 Respiratory rate16 /minV[facility]10-18-2023 17:31-0400 Systolic blood ynnlszey769 mm[Hg][facility]06-06-2023 10:55-0400Body mrwuer763.5 cmErin Reaper WELDING INSTRUCTOR.EXTERNAL RELATIONS MANAGER Work Phone: [place] Evofyb38-81-2750 10:55-0400Body dkvoqx51.86 kgErin Reaper WELDING INSTRUCTOR.EXTERNAL RELATIONS MANAGER Work Phone: [phone] Aclorx55-47-8506 10:55-0400Diastolic blood nkabxeua73 mm[Hg]Jihan Reaper WELDING INSTRUCTOR.EXTERNAL RELATIONS MANAGER Work Phone: [phone] Rsmynp54-90-5660 10:55-0400Systolic blood turyqvet427 mm[Hg]Jihan Reaper WELDING INSTRUCTOR.EXTERNAL RELATIONS MANAGER Work Phone: [place] Jrhynq67-51-4097 19:18-0500Diastolic blood mm[Hg][facility]03-08-2023 19:18-0500Heart rate98 /minC[facility]03-08-2023 19:18-0500Nursing Progress Note ReasonOther: this RN discharged pt. pt verbalizes understanding and denies questiosn prior to discharge.[facility]03-08-2023 19:18-0500Respiratory rate16 /minC[facility]03-08-2023 19:18-1074SxP4% (BldA) [Mass fraction]100 %[facility]03-08-2023 19:18-0500 Systolic blood pxmsjnse832 mm[Hg][facility] 01-31-2023 18:00-0500Diastolic blood dezvztdy08 mm[Hg][facility]03-08-2023 18:00-0500Heart iyeq263 /minC[facility]03-08-2023 18:00-0500Mean blood mm[Hg][facility]03-08-2023 18:00-2129FpS6% (BldA) [Mass fraction]99 %[facility]03-08-2023 18:00-0500 Systolic blood zomcgqhq250 mm[Hg][facility] 01-31-2023 17:00-0500Diastolic blood emvmomnk25 mm[Hg][facility]03-08-2023 17:00-0500Mean blood qjiicsqe392 mm[Hg][facility]03-08-2023 17:00-0500Systolic blood pressure 117 mm[Hg][facility]03-08-2023 16:38-0500Heart fpii482 /minC[facility]03-08-2023 16:38-0500Mean blood yatxodfc701 mm[Hg][facility]03-08-2023 16:38-0500Respiratory rate18 /min[facility] 01-31-2023 13:49-0500Body qntttlcvgiw77.88 [degF][facility]03-08-2023 13:49-0500Heart dhmv698 /min[facility]02-04-2023 14:55-0500Body spmctwrfmif70.88 [degF][facility]02-04-2023 14:55-0500Diastolic blood mm[Hg][facility]02-04-2023 14:55-0500Heart rate84 /minC[facility]02-04-2023 14:55-0500Mean blood mm[Hg][facility]02-04-2023 14:55-0500Respiratory rate20 /minC[facility]02-04-2023 14:55-3547SaB9% (BldA) [Mass fraction]98 %[facility]02-04-2023 14:55-0500Systolic blood pressure 137 mm[Hg][facility]02-04-2023 14:35-0500Body yuwiqbpavmd14.88 [degF][facility]02-04-2023 14:35-0500Diastolic blood mm[Hg][facility]02-04-2023 14:35-0500Heart rate82 /minC[facility]02-04-2023 14:35-0500Mean blood qhlczfqu71 mm[Hg][facility]02-04-2023 14:35-0500Respiratory rate16 /min[facility]02-04-2023 14:35-2146DmR9% (BldA) [Mass fraction]97 %[facility]02-04-2023 14:35-0500Systolic blood xaqpqgok407 mm[Hg][facility]02-04-2023 13:35-0500Body fxthrnglduc85.88 [degF][facility]02-04-2023 13:35-0500Diastolic blood smefdhyy19 mm[Hg][facility]02-04-2023 13:35-0500Heart rate80 /min[facility]02-04-2023 13:35-0500Mean blood yluqflst88 mm[Hg] [facility]02-04-2023 13:35-0500Respiratory rate 17 /min[facility]02-04-2023 13:35-8074MrN3% (BldA) [Mass fraction]96 %[facility]02-04-2023 13:35-0500Systolic blood jvinftwd471 mm[Hg][facility]02-04-2023 13:00-0500Respiratory rate12 /min[facility]02-04-2023 12:55-0500Respiratory rate9 /min[facility]02-04-2023 12:50-0500Respiratory rate10 /min[facility]02-04-2023 08:15-0500Body oqpqhjcklpy17.24 [degF] [facility]02-04-2023 08:15-0500Heart qank363 /min[facility]01-07-2023 13:41-0500Body tuymqiwilwf80.2 [degF]Kathe Ryder DO Work Phone: [facility] HospitalMymtdf60-87-2187 13:41-0500Diastolic blood egeiursk79 mm[Hg]Kathe Ryder DO Work Phone: [facility] HospitalLzbwux11-17-0306 13:41-0500Heart ggsz838 /min Kathe Ryder DO Work Phone: [facility] HospitalGeslkq71-04-2865 13:41-0500Respiratory rate18 /minKathe Ryder DO Work Phone: [facility] HospitalXqfcbk83-89-1547 13:41-6928HvH2% (BldA) [Mass fraction]99 %Kathe Ryder DO Work Phone: [facility] HospitalMxzayk64-49-5517 13:41-0500Systolic blood pwemvxpt575 mm[Hg]Kathe Ryder DO Work Phone: [facility] HospitalRupmiy16-83-4871 00:45-0500Body .5 cm Kathe Ryder DO Work Phone: [facility] HospitalDdqwlb51-78-3017 00:45-0500Body mass index (BMI) [Ratio]25.61 kg/h2YcsvcevxlKathe Ryder DO Work Phone: [facility] HospitalOecyvo53-75-1169 00:45-0500Body qtfgyf86.5 kg Kathe Ryder DO Work Phone: [facility] HospitalUkmcxe41-95-4581 22:26-0500Hourly Rounding Fredi ABREUK [address] [place], [place] [address]Comment on above:Result Comment: ensured that all pt belongings are sent with pt. pt has no questions or concerns. report given to EMS. pt stable and no s/s of distress. pt off unit to qvemrlwk03-32-2533 22:00-0500Diastolic blood waqyevzi06 mm[Hg]Fredi KARASIK [address] [place], [place] 4307601-02-2023 22:00-0500Heart hnzm439 /minGregory KARASIK [address] [place], [place] 4307601-02-2023 22:00-0500 Hourly RoundingCjory KARASIK [address] [place], [place] 4307601-02-2023 22:00-0500Mean blood hvlrqnal075 mm[Hg]Fredi KARASIK [address] [place], [place] 4307601-02-2023 22:00-0500 Systolic blood eefmiyqr344 mm[Hg]Fredi KARASIK [address] [place], [place] 4307601-02-2023 21:50-0500Blood Pressure LocationGregory KARASIK [address] [place], [place] 4307601-02-2023 21:50-0500 Diastolic blood ulelsbud95 mm[Hg]Fredi KARASIK [address] [place], [place] 4307601-02-2023 21:50-0500Heart fvjq915 /minGregory KARASIK [address] [place], [place] 4307601-02-2023 21:50-0500 Hourly RoundingCjory KARASIK [address] [place], [place] 4307601-02-2023 21:50-0500Mean blood cyzjpxme038 mm[Hg]Fredi ABREUK [address] [place], [place] 430[address]01-02-2023 21:50-0500 Respiratory rate18 /minFredi DORSEY [address] [place], [place] 4307601-02-2023 21:50-4451SyD1% (BldA) [Mass fraction]98 %Fredi ABREUK [address] [place], [place] 4307601-02-2023 21:50-0500 Systolic blood mm[Hg]Fredi SCHUMACHERASIK [address] [place], [place] 4307601-02-2023 21:37-0500Blood Pressure LocationFredi DORSEY [address] [place], [place] 4307601-02-2023 21:37-0500 Diastolic blood ombwygjh57 mm[Hg]Fredi DORSEY [address] [place], [place] 4307601-02-2023 21:37-0500Heart ujhh147 /minFredi DORSEY [address] [place], [place] 430[address]01-02-2023 21:37-0500Mean blood rkbywziu988 mm[Hg]Fredi DORSEY [address] [place], [place] 4307601-02-2023 21:37-1470XxZ7% (BldA) [Mass fraction]97 %Fredi SCHUMACHERASIK [address] [place], [place] 4307601-02-2023 21:37-0500 Systolic blood dvmybfmz051 mm[Hg]Fredi KARASIK [address] [place], [place] 4307601-02-2023 21:30-0500Blood Pressure LocationFredi ABREUK [address] [place], [place] 4307601-02-2023 21:30-0500Body tjwdcwckaem54.6 [degF]Fredi SCHUMACHERASIK [address] [place], [place] 430[address]01-02-2023 19:00-0500Body vwyirsqafqq99.24 [degF]Fredi DORSEY [facility]01-02-2023 17:15-0500Body zyiwdflcomv38.06 [degF]Fredi DORSEY [facility]01-02-2023 14:02-0500Heart rate99 /minFredi DORSEY [facility]08-19-2022 07:00-0400Body xlfaabfeapd89.6 [degF]Kaylinn Dokken [address] [place], [place] 6445108-19-2022 07:00-0400 Diastolic blood fbgmsojc12 mm[Hg]Kaylinn Dokken [address] [place], [place] 6445108-19-2022 07:00-0400Heart rate80 /minKaylinn Dokken [address]08-19-2022 07:00-0400Mean blood mm[Hg]Kaylinn Dokken [address] [place], [place] 6445108-19-2022 07:00-0400 Respiratory rate17 /minKaylinn Dokken [address] [place], [place] 6445108-19-2022 07:00-0400 Systolic blood kylcmmng761 mm[Hg]Kaylinn Dokken [address] [place], [place] 6445108-19-2022 06:07-0400Body hrrouuxhbwb48.24 [degF]Kaylinn Dokken [address] [place], [place] 6445108-19-2022 06:07-0400 Diastolic blood gxusaokf10 mm[Hg]Kaylinn Dokken [address] [place], [place] 64[address]108-19-2022 06:07-0400Heart rate90 /minKaylinn Dokken [facility]08-19-2022 06:07-0400 Respiratory rate18 /minCharlotteylgabrielan Dokken [facility]08-19-2022 06:07-3443PqH7% (BldA) [Mass fraction]100 %Kumar Villagomez [facility]08-19-2022 06:07-0400 Systolic blood wftoqxlz387 mm[Hg]Kumar Villagomez [facility]08-19-2022 05:30-0400 Hourly RoundingCorey KIESHA [facility] CenterComment on above:Result Comment: Pt discharged per physician orders. Pt ambulates off unit with a steady mtny94-68-2745 05:15-0400Diastolic blood icquskhu11 mm[Hg]Ntahan KIESHA [facility]08-19-2022 05:15-0400Heart vejz717 /minCorey KIESHA [facility]08-19-2022 05:15-0400 Hourly RoundingCorey KIESHA [facility]08-19-2022 05:15-0400Mean blood qvhqufiq86 mm[Hg]Nathan KIESHA [facility]08-19-2022 05:15-0400 Respiratory rate18 /minCorey KIESHA [facility]08-19-2022 05:15-0400 Systolic blood mm[Hg]Nathan KIESHA [facility]05-24-2022 11:00-0400Body ecvueq324.02 cmCamerpreston Hodges Other [place] [employer] Other 05-24-2022 11:00-0400Body mass index (BMI) [Ratio] 23.03 kg/v3Qlqtfzpdorene Hodges Other [facility] [employer] Other 05-24-2022 11:00-0400Body xavxns21.97 kgCamdorene Carrilloy Other [facility] [facility] [employer] Other 03-17-2022 11:41-0400Body ztaams821.48 cmMegan Billow DO Work Phone: [facility] Work Phone: [phone] 11:41-0400Body mass index (BMI) [Ratio] 24.51 kg/k3Oyqlp Billow DO Work Phone: 1()[phone]-KOWVR-[address] Work Phone: [phone]()[phone] 11:41-0400Body surface area Derived from formula1.61 y6Ipjcl Billow DO Work Phone: [phone]()[phone]-ILXPN-[address] Work Phone: [phone] 11:41-0400Body xxvuib50.78 kgMegan Billow DO Work Phone: [phone]()[phone]-ANDWN-[facility] [address] Work Phone: [phone] 11:41-0400Diastolic blood rzgdigtb52 mm[Hg] Charlene Billow DO Work Phone: DI-HCNHX[facility] [address] Work Phone: [phone] 11:41-0400Systolic blood mm[Hg] Charlene Billow DO Work Phone: UM-FSJNL[facility] [address] Work Phone: [phone]()[phone] 11:41-31313 1Megan Billow DO Work Phone: IV-FQEGP-[facility] [address] Work Phone: [phone] on above:LPXWRULQFuttFofqr89-07-3653 14:53-0400Body dltkso148.48 cmMegan Billow DO Work Phone: HU-NJYRB[facility] [address] Work Phone: [phone] 14:53-0400Body mass index (BMI) [Ratio] 21.77 kg/r0Buzxg Billow DO Work Phone: DO-DSTGK[facility] [address] Work Phone: [phone] 14:53-0400Body surface area Derived from formula1.53 o3Vfvft Billow DO Work Phone: AJ-BIZDH[facility] [address] Work Phone: [phone] 14:53-0400Body ickdyd52.98 kgMegan Billow DO Work Phone: [facility]-YBSYR[facility] [address] Work Phone: [phone] 14:53-0400Diastolic blood jcudnhgz67 mm[Hg] Charlene Billow DO Work Phone: SX-DQAMS[facility] [address] Work Phone: [phone] 14:53-0400Heart mnpx760 /minMegan Billow DO Work Phone: ZZ-IOXUE[facility] [address] Work Phone: [phone] 14:53-0400Systolic blood yqmcjoah597 mm[Hg] Charlene Billow DO Work Phone: RI-JXFHD[facility] [address] Work Phone: [phone] 14:53-53045 1Megan Billow DO Work Phone: VK-PBNYZ[facility] [address] Work Phone: [phone] on above:GRAVPARAPainScale Encounters Encounter DateEncounter [facility] ProviderFacilityStart: 10-05-2025 End: 70-72-9422Zpnjrpkiz encounterAnjana Novajunior RNMaternal- [facility]: 10-03-2025 End: 87-72-7376Rdbdklkkp Result EncounterSteph Keane NP Work Phone: n[facility] External Department UnsolicitedStart: 10-03-2025 End: 33-72-3485Rugwrpfpc Result EncounterSteph Keane NP Work Phone: noms External Department UnsolicitedStart: 09-30-2025 End: 74-14-4622Ywahwysz flow sheetCorey Kiesha DO Work Phone: noms Patti OBGYNComment on above:Third trimester ([facility]); 31 weeks gestation of ([facility]); Pre-eclampsia in third trimester ([facility])Start: 09-30-2025 End: 83-82-0414uhjmdzbxwbFNEVY FAZIONot AvailableStart: 09-30-2025 End: 48-21-4075Bghtet flowsheetCorey Kiesha DO Work Phone: noms [facility] OBGYNStart: 09-30-2025 End: 92-83-1544Lwuuev flowsheetCorey Kiesha DO Work Phone: noms Patti OBGYNStart: 09-28-2025 End: 52-07-2432Pdagkh Tera Meza PA-C Work Phone: [phone]-Hgilc Medicine at [facility] Comment on above:Essential hypertension affecting in third trimester Start: 09-26-2025 End: 96-43-3043Dystjexun Result EncounterSteph Keane NP Work Phone: noms External Department UnsolicitedStart: 09-26-2025 End: 79-10-3475Nlvdsmcmk Result EncounterSteph Keane NP Work Phone: NOMS External Department UnsolicitedStart: 09-21-2025 End: 57-06-6886jxmwewbxmiNfuefns E Lavoy PA-C Work Phone: [phone]-Uzbse Medicine at [facility] Comment on above:Insulin controlled gestational diabetes mellitus (GDM) in third trimester (Primary Dx); Essential hypertension affecting in third trimesterStart: 09-21-2025 End: 70-20-0124Tkbbdbskk encounterRaheemvaleria Shahab EDOUARD Work Phone: [phone]-Pxmnu Medicine at [facility] Start: 09-19-2025 End: 11-71-9258Ueglrtxvr Result EncounterSteph Keane NP Work Phone: noms External Department UnsolicitedStart: 09-19-2025 End: 22-42-9763Fxfyyrtrc Result EncounterSteph Keane NP Work Phone: noms External Department UnsolicitedStart: 09-17-2025 End: 21-08-6558Fdwkdw Breanna CAGE Work Phone: [phone]-Ohotp Medicine at [facility] Comment on above:Essential hypertension affecting in third trimester Start: 09-16-2025 End: 60-22-5509qhxhokfejuIUPJC FAZIONot AvailableStart: 09-16-2025 End: 32-24-9113Fjiazxnf flow sheetCorey Kiesha DO Work Phone: noms Patti OBGYNComment on above:29 weeks gestation of ([facility]); Third trimester ([facility]); Hypertension affecting , antepartum ([facility]); Gestational diabetes mellitus (GDM), antepartum, gestational diabetes method of control unspecified([facility])Start: 09-16-2025 End: 62-31-9300Lohwkh flowsheetCorey Kiesha DO Work Phone: noms [facility] OBGYNStart: 09-16-2025 End: 49-99-4725Rdenbj flowsheetCorey Kiesha DO Work Phone: noMS Patti OBGYNStart: 09-16-2025 End: 80-71-9010Aalmlgqay Nirmal Harris RNMaternal- Medicine at [facility] Hospitaltart: 09-15-2025 End: 84-54-6704BfifxeMika Meza PA-C Work Phone: [phone]-Reuty Medicine at [facility] Comment on above:Essential hypertension affecting in third trimester Start: 09-10-2025 End: 91-79-4509Cdaqfn outpatient visit 25 minutesMahduri Monroy MD Work Phone: Maternal Medicine [place]: 28 weeks gestation of (Primary Dx); Insulin controlled gestational diabetes mellitus (GDM) in second trimester; Essential hypertension affecting in third trimesterStart: 09-10-2025 End: 13-29-7347nenxmzsvatFZYAPHJH P DOCHEVAOhioHealth [facility] Start: 09-04-2025 End: 69-39-8999Eoaayy consultation new/estab patient 60 Annalee Denise MD Work Phone: [phone]-Cxyts Medicine at [facility] Comment on above:Diet controlled gestational diabetes mellitus (GDM) in second trimester (Primary Dx); Essential hypertension affecting in third trimesterStart: 09-04-2025 End: 34-36-1999tocivsgpusPIWMTJ KHURSHIDPOhio Valley Surgical Hospitaltart: 09-03-2025 End: 48-07-7562Mzuahubs flow Rom Keane NP Work Phone: NOMS [place] OBGYNComment on above:Hypertension affecting , antepartum (HHS-HCC) (Primary Dx); 27 weeks gestation of ([facility]-HCC); Second trimester ([facility]-H[facility])Start: 09-03-2025 End: 69-39-5690beytounwinDCXQRXAM EBERLYNot AvailableStart: 09-03-2025 End: 37-53-0376Sncqtn Bárbara Keane NP Work Phone: NOMS [place] OBGYNStart: 09-03-2025 End: 26-50-6655Qnlgkhoqb Result EncounterCorey Kiesha DO Work Phone: noms External Department UnsolicitedStart: 09-03-2025 End: 82-63-1211Qgdpsdlfq Result EncounterCorey Kiesha DO Work Phone: noms External Department UnsolicitedStart: 09-01-2025 End: 14-08-4659Suhumpdfo encounterCha Harris RNMaternal- Medicine at [facility] Hospitaltart: 08-29-2025 End: 39-05-2299Qdcnveyjy Result EncounterSteph Keane NP Work Phone: noms External Department UnsolicitedStart: 08-29-2025 End: 58-89-8229Tnzxtfadh Result EncounterSteph Keane PEDIATRIC CLINICAL NURSE SPECIALIST Work Phone: noms External Department UnsolicitedStart: 08-27-2025 End: 40-64-9917qjaopptkjxHPLDXMBC EBERLYNot AvailableStart: 08-27-2025 End: 23-80-9170Jgyvbkvs flow sheetSteph Suely PEDIATRIC CLINICAL NURSE SPECIALIST Work Phone: NOQD Patti OBGYNComment on above:26 weeks gestation of ([facility]); Second trimester ([facility]); induced hypertension, antepartum ([facility]); Gestational diabetes mellitus (GDM) in second trimester, gestational diabetes method of control unspecified ([facility])Start: 08-27-2025 End: 87-26-8016Gaoyoa flowsheetSheelaa Elsa PEDIATRIC CLINICAL NURSE SPECIALIST Work Phone: NOMS Patti OBGYNStart: 08-27-2025 End: 31-03-6030Gwlhoc flowsheetKristina Elsa PEDIATRIC CLINICAL NURSE SPECIALIST Work Phone: NOMS [place] OBGYNStart: 08-27-2025 End: 63-71-5397Zwufklefz Result EncounterSteph Keane PEDIATRIC CLINICAL NURSE SPECIALIST Work Phone: NOMS External Department UnsolicitedStart: 08-25-2025 End: 82-32-0736Cyztrrldt Result EncounterGeneric External Data ProviderNODC External Department UnsolicitedStart: 08-25-2025 End: 14-34-0875Tvmnwlacd Result EncounterGeneric External Data ProviderNODC External Department UnsolicitedStart: 08-24-2025 End: 14-23-5040muyfsruargQraaey M Frey RN Work Phone: [phone]-Zielg Medicine at [facility] Comment on above:Gestational diabetes mellitus (GDM) in second trimester, gestational diabetes method of control unspecifiedStart: 08-21-2025 End: 45-19-2713Srtca abstractingScanning Provider ExternalMaternal- Medicine at [facility] Hospitaltart: 08-18-2025 End: 98-27-3534Yamxi abstractUnique Monroy MD Work Phone: [phone]-Jzxiy Medicine at [facility] Start: 08-15-2025 End: 77-78-3580dnpbwujjzoOBQEIMFH EBERLYFacility:FTMCStart: 08-12-2025 End: 81-78-6368Omthdbya flow sheetCorey Kiesha DO Work Phone: NORA [facility] OBGYNComment on above:24 weeks gestation of ([facility]); Second trimester ([facility]); Elevated glucose tolerance testStart: 08-12-2025 End: 86-54-5954evkgnqjaaxJRRXN FAZIONot AvailableStart: 08-12-2025 End: 10-34-6347qoxhqgeeeyIlqqp R FAZIOFacility:FTMCStart: 08-01-2025 End: 15-77-0466udwgdoziiyUWhit BELTRANFacility:FTMCStart: 07-30-2025 End: 96-77-7950Nmayynh encounter statusGemartha Beltran DO Work Phone: [facility] Work Phone: Start: 07-30-2025 End: 58-44-7856Vprcxpvu preventive med est patient 18-39 yrsGeorge R Charlotteftan DO Work Phone: NOOM [facility] 230Comment on above: Wellness examination (Primary Dx); Hypertension, unspecified type ; Lipid screeningStart: 07-30-2025 End: 77-42-3434vivwvydthtVRXCFX R KAFTANNot AvailableStart: 07-30-2025 End: 27-57-3846Apoxht flowsheetGeorge R Charlotteftan DO Work Phone: NOIK [facility] 230Start: 07-30-2025 End: 61-68-2958Hgccal flowsheetGeorge R Ruby DO Work Phone: noms [facility] 230Start: 07-15-2025 End: 85-98-4256Qcxvjcng flow sheetCorey Kiesha DO Work Phone: NOVC [place] OBGYNComment on above:20 weeks gestation of ([facility]); Second trimester ([facility]); Diabetes mellitus screeningStart: 07-15-2025 End: 95-86-0079tbfynbmgpwKTEHL FAZIONot AvailableStart: 07-15-2025 End: 94-06-1383Yrgqstutx Result EncounterCorey Kiesha DO Work Phone: NOGB External Department UnsolicitedStart: 07-15-2025 End: 13-60-8401Jptjouahf Result EncounterCorey Kiesha DO Work Phone: NOCD External Department UnsolicitedStart: 06-22-2025 End: 39-64-9908Yeoyhyzp flow sheetCorey Kiesha DO Work Phone: NOMS [place] OBGYNComment on above:Sinusitis, unspecified chronicity, unspecified location (Primary Dx); Second trimester ([facility]); 17 weeks gestation of ([facility]); Screening, , for anatomic survey ([facility])Start: 06-22-2025 End: 80-98-3634vzvxgeaohjEILGR FAZIONot AvailableStart: 06-22-2025 End: 91-65-6095Pthlyn flowsheetCorey Kiesha DO Work Phone: NOTA Patti OBGYNStart: 06-22-2025 End: 97-74-5747Ieaehf flowsheetCorey Kiesha DO Work Phone: NOEV [facility] OBGYNStart: 06-22-2025 End: 02-76-7455Qezhtfaj Result EncounterCorey Kiesha DO Work Phone: NOIC External Department UnsolicitedStart: 05-25-2025 End: 08-33-2909aijlugdbptEWACT FAZIONot AvailableStart: 05-25-2025 End: 30-40-7229Mwtienev flow sheetCorey Kiesha DO Work Phone: NOCI BCP OBComment on above:Nonintractable episodic headache, unspecified headache type (Primary Dx); Second trimester ([facility]); 13 weeks gestation of ([facility])Start: 05-25-2025 End: 33-30-0874Vxljwv flowsheetCorey Kiesha DO Work Phone: NOYU BCP OBStart: 05-25-2025 End: 03-84-9426Kghcji flowsheetCorey Kiesha DO Work Phone: NOOX BCP OBStart: 05-04-2025 End: 16-81-0693Rnqnbzqdm Result EncounterCorey Kiesha DO Work Phone: NOBP External Department UnsolicitedStart: 05-04-2025 End: 85-79-9080Kwjnrixus Result EncounterCorey Kiesha DO Work Phone: NOZN External Department UnsolicitedStart: 05-01-2025 End: 51-09-2369Ugzzjnqrg Result EncounterCorey Kiesha DO Work Phone: NOSW External Department UnsolicitedStart: 05-01-2025 End: 27-37-0945Hbshkavei Result EncounterCorey Kiesha DO Work Phone: NOTW External Department UnsolicitedStart: 05-01-2025 End: 21-30-7769pjtufpwrhdVHSZBP TREYANNot AvailableStart: 05-01-2025 End: 28-26-4395Vguenn outpatient visit 5 minutesNoms Bcp Ob Kiesha NurseNOMS BCP OBComment on above:GA: 3s2zAvvap: 03-13-2025 End: 12-00-7244tvxfhzdskkWotvx R FAZIOFacility:FTMCStart: 03-13-2025 End: 88-27-9005Ghedelc encounter procedureCorey R KIESHA [facility] Start: 02-02-2025 End: 49-93-9806Mttqlmj encounter procedureDenny Rodríguez MD Work Phone: [facility] [place] Work Phone: Start: 02-02-2025 End: 91-82-4886wgfqbntyiuBgaie Baxter MD Work Phone: [facility] Work Phone: Start: 01-22-2025 End: 43-25-6171sdccopvccxCglcj R FAZIOFacility:FTMCStart: 01-22-2025 End: 55-06-1457Dahkken encounter procedureCorey R KIESHA [facility] Start: 01-19-2025 End: 28-62-4831Cispva outpatient visit 15 minutesCorey Kiesha DO Work Phone: noMS BCP OBComment on above:Pain in female genitalia on intercourse; EndometriosisStart: 01-19-2025 End: 96-71-1603jdtfhwgtmnYNXBS FAZIONot AvailableStart: 01-19-2025 End: 58-83-3582Nafhof flowsheetCorey Kiesha DO Work Phone: NOMS BCP OBStart: 01-19-2025 End: 65-81-9616Sfclfs flowsheetCorey Kiesha DO Work Phone: noms BCP OBStart: 12-30-2024 End: 77-98-4418lasevdmeqwGNBIFK Bryant YANGBryan AvailableStart: 12-30-2024 End: 48-42-2679Jeytvb outpatient visit 15 minutesGeorge Bryant Beltran DO Work Phone: NOYJ [facility] 230Comment on above:Hypertension, unspecified type (CMS/HCC) (Primary Dx); Paroxysmal tachycardia, unspecified (CMS/HCC); Chronic right shoulder pain; Scapular dyskinesisStart: 08-18-2024 End: 37-89-8278Jxtmms flowsheetCorey Kiesha DO Work Phone: NOSE BCP OBStart: 08-18-2024 End: 79-52-4521Jxyzez flowsheetCorey Kiesha DO Work Phone: NOTQ BCP OBStart: 08-18-2024 End: 87-57-5487Cwrfaxxyi Result EncounterCorey Kiesha DO Work Phone: NOEM External Department UnsolicitedStart: 08-18-2024 End: 27-81-9076Gwnendc encounter procedureCorey Kiesha DO Work Phone: [facility] Work Phone: Start: 08-18-2024 End: 83-41-9629Ovoxbyoj preventive med est patient 18-39 yrsCorey Kiesha DO Work Phone: NOUQ BCP OBComment on above:Well woman exam with routine gynecological examStart: 07-22-2024 End: 15-51-9581Ukmrad flowsheetCorey Kiesha DO Work Phone: NOMS BCP OBStart: 07-22-2024 End: 59-10-7022Hxpwok flowsheetCorey Kiesha DO Work Phone: NOCD BCP OBStart: 07-22-2024 End: 89-18-4230Zaldqw outpatient visit 15 minutesCorey Kiesha DO Work Phone: NOMS BCP OBComment on above:Dysmenorrhea, unspecified Start: 21-74-0010Bdnuuwdkq encounterMegan Billow DO Work Phone: [facility]art: 92-44-1578Hmuvcogvv encounterMegan Billow DO Work Phone: [facility] OconomowocComment on above:Surgery CancelledStart: 02-13-2024 End: 22-96-4210Tfzcbvxrt Result EncounterCorey Kiesha DO Work Phone: NOMS External Department UnsolicitedStart: 02-13-2024 End: 51-94-4468Wsxgmrmnf Result EncounterCorey Kiesha DO Work Phone: NOWF External Department UnsolicitedStart: 01-15-2024 End: 73-51-3099Vvefhmhdh Result EncounterCorey Kiesha DO Work Phone: NOBX External Department UnsolicitedStart: 01-15-2024 End: 76-35-3878Ainwjzceb Result EncounterCorey Kiesha DO Work Phone: NOOD External Department UnsolicitedStart: 01-10-2024 End: 06-50-5046Gefghq outpatient visit 15 minutesCorey Kiesha DO Work Phone: NOMS BCP OBComment on above:Menorrhagia with regular cycle; Pelvic pain in female; Uses controlStart: 70-55-1323CcwujnUxvfj Billow DO Work Phone: [facility] HospitalComment on above:Refill Request Start: 87-86-2825egixvlhmteCapfe Billow DO Work Phone: Obstetrics/GynecologyComment on above:painStart: 12-10-2023 End: 65-52-5548ikrreoqmbwOZRZP BILLOWFacility:[facility] Hospitaltart: 56-14-4557mmzfrlndrqCkulf Billow DO Work Phone: [facility]tart: 02-33-2878Zeatnvw encounter procedureMegan Billow DO Work Phone: Obstetrics/GynecologyComment on above:office visit Start: 09-12-2023 End: 21-57-1980Wltmbxlqn department patient Berny Loco [facility] Start: 05-09-9563Zwwhag pelvic examinationMegan Billow DO Work Phone: Obstetrics/GynecologyComment on above:Pelvic pain in female (Primary Dx)Start: 96-92-9491rarkmzicdcPspdi Billow DO Work Phone: Obstetrics/GynecologyComment on above:painful periods Start: 08-24-2023 End: 60-98-8023Idgxik pelvic examinationJihan Downs APRN.CNP Work Phone: GynecologyComment on above:High-tone pelvic floor dysfunction (Primary Dx); Chronic pelvic pain in femaleStart: 08-24-2023 End: 75-33-3991Whojhjgognhm consultation with Kelton Downs APRN.CNP Work Phone: [facility] MAINStart: 08-24-2023 End: 14-43-5729hzoexyukeaQVCZ REAPERFacility:[facility] Hospitaltart: 04-26-9461coczpsxpbqDhspe Billow DO Work Phone: Obstetrics/GynecologyComment on above:painful period Start: 62-13-3886Zjpgvpmpb encounterMegan Billow DO Work Phone: GynecologyComment on above:Insurance Authorization (Orilissa)Start: 07-16-2023 End: 19-22-6024oeordqcypjVCQAY BILLOWFacility:[facility] Hospitaltart: 06-12-2023 End: 63-16-7788euavhqspojTXBRN BILLOWFacility:[facility] Hospitaltart: 06-12-2023 End: 68-82-8231Gfqgvwtspx hospital visit by Mónica [facility] Suki (I-Stat/1.5t) RadiologyComment on above:Pelvic and perineal pain [R10.2]Start: 05-17-2023 End: 99-98-4598Ebgmaa pelvic examinationMegan Billfanny DO Work Phone: Obstetrics/GynecologyComment on above:Endometriosis (Primary Dx); Pelvic and perineal painStart: 05-17-2023 End: 81-57-2389Pzdkxufzefuk consultation with patientCharlene Rodriguez DO Work Phone: CCDre VERONICA FHtart: 05-17-2023 End: 12-86-4183ftcjoslygtDZGXQ ALAN BAXTERFacility:[facility] Start: 67-13-1363Tvbosgwkp encounterMekevin Rodriguez DO Work Phone: GynecologyComment on above:Vaginal BleedingStart: 05-01-2023 End: 91-40-3828epktrtvmmgZXOXMYang Stanleycility:[facility] Start: 05-01-2023 End: 72-01-2376Xzfminp encounter Lisa Downs APRN.EXTERNAL RELATIONS MANAGER Work Phone: GynecologyComment on above:Chronic pelvic pain in female (Primary Dx); Constipation, unspecified constipation type; High-tone pelvic floor dysfunction; Diastasis of rectus abdominis; Dysmenorrhea; Other specified dyspareuniaStart: 90-45-6030qobhpehaatFzvrm Billfanny DO Work Phone: Obstetrics/GynecologyComment on above:painfulStart: 01-31-2023 End: 15-97-7139Kmqioqzwm department [facility] Start: 12-30-2022 End: 21-49-7442Kbbqzwr encounter procedureRiverview Health Institute Start: 12-05-2022 End: 73-64-2013parpwmexlmPDXJAdventHealth for WomenStart: 12-05-2022 End: 86-32-1028Lsoyom outpatient visit [facility] hospitalGinsrinath Diallo DO Work Phone: [facility] Women's RustComment on above:Pre- eclampsia, severe, delivered (Primary Dx)Start: 11-28-2022 End: 48-47-9619Yheelesuqj and management of inpatientBaptist Medical Center NassauStart: 11-28-2022 End: 61-40-4397Actxppkuyn and management of inpatientRiverview Hospital DO Work Phone: [facility] POSTPARTUMComment on above:Preeclampsia, severe, third trimester (Primary Dx)Start: 11-28-2022 End: 77-68-8607Fzl-admission assessmentGregrosa DORSEY [facility] Start: 11-27-2022 End: 86-48-8304AD TriageGregrosa DORSEY [facility] Start: 07-14-2022 End: 03-31-8310Fjidxrkxf department patient visitCharlotteylgabrielajunior Perkins Yulyangy [facility] Start: 07-14-2022 End: 22-18-9437TD TriageNathan Bryant KIESHA [facility] Start: 04-25-2022 End: 17-56-5587Zjmqsfx encounter procedureCAMERON DICADEY [facility] Start: 04-18-2022 End: 05-45-8878omnsrzlaxkUzrcojp Ditty Other [facility] [employer] Other Start: 14-14-3900Smehsnp encounter procedureCameron DittyFPG GastroenterologyStart: 20-53-4526Blkqvi outpatient visit 15 minutes Charlene Rodriguez DO Work Phone: SL-OOZHP-[address] Work Phone: Start: 09-29-2021 End: 81-12-5658zjortshxfqVLCNU ROWENA [facility] HospitalStart: 09-29-2021 End: 33-78-7994fvxnupgpouYPFXI ROWENA [facility] HospitalStart: 66-45-1787UEYSKBsyyr Billow DO Work Phone: [phone]-QVEXW-[address] Work Phone: Start: 66-74-0619FNFMQWPNYE, Provider: Charlene Rodriguez, Status: Pen, Time: 2:45 Ina Chau MD Work Phone: [phone]-Pedqfvt-[place] Work Phone: Start: 81-54-9882Ojkub Oswaldo Chau MD Work Phone: [phone]-Rzpzdut-[place] Work Phone: Procedures DateProcedureProcedure DetailPerforming ClinicianStart: 79-80-7574YV OB BPP W NON-STRESSKristina Elsa PEDIATRIC CLINICAL NURSE SPECIALIST Work Phone: Start: 93-88-3549Nsiwt dip stick/tablet rgnt non-auto w/o micrscpCorey Kiesha DO Work Phone: Start: 63-79-5301KJ OB BPP W NON-STRESSKristina Esla PEDIATRIC CLINICAL NURSE SPECIALIST Work Phone: Start: 55-87-8000XX OB BPP W NON-STRESSKristina Elsa PEDIATRIC CLINICAL NURSE SPECIALIST Work Phone: Start: 71-08-5905Jirng dip stick/tablet rgnt non-auto w/o micrscpCorey Kiesha DO Work Phone: Start: 36-47-9048RRL BUNCorey Kiesha DO Work Phone: Start: 77-61-1493FLP URIC ACIDCorey Kiesha DO Work Phone: Start: 35-61-6649JIQ ALTCorey Kiesha DO Work Phone: Start: 08-98-7478XGR ASTCorey Kiesha DO Work Phone: Start: 42-00-8920QQO CREATININECorey Kiesha DO Work Phone: Start: 79-71-7199OWT URINE T PROTEIN CREAT RATIOCorey Kiesha DO Work Phone: Start: 42-09-5577Kyfxl dip stick/tablet rgnt non-auto w/o micrscpSheelaa Elsa PEDIATRIC CLINICAL NURSE SPECIALIST Work Phone: Start: 68-40-1304BUU TOTAL PROTEIN 24 HOUR URINE Generic External Data ProviderStart: 21-52-4466FX OB BPP W NON-STRESS Steph Keane PEDIATRIC CLINICAL NURSE SPECIALIST Work Phone: Start: 41-88-1930CPI URINE T PROTEIN CREAT RATIO Generic External Data ProviderStart: 91-51-3654OMO CBC WITH AUTO DIFFGeneric External Data ProviderStart: 44-34-9039Bajet dip stick/tablet rgnt non-auto w/o micrscpKristina Elsa PEDIATRIC CLINICAL NURSE SPECIALIST Work Phone: Start: 58-99-3405Ijsevjop identified in Urine by CultureGeneric External Data ProviderStart: 64-22-6913Dakumtb quantitative blood xcpt reagent stripNot In System Ref ProvStart: 60-76-5274AJOROF HOUR GLUCOSE TOLERANCE 100 GM LOADNot In System Ref ProvStart: 17-33-5476Nepyt dip stick/tablet rgnt non-auto w/o micrscpCorey Kiesha DO Work Phone: Start: 55-85-7988UZW 1H POST 50G LOADNot In System Ref ProvStart: 69-49-7678BNY, SERUM, OPEN SPINA BIFIDACorey Kiesha DO Work Phone: Start: 89-99-8949Gzovt dip stick/tablet rgnt non-auto w/o micrscpCorey Kiesha DO Work Phone: Start: 18-98-0564NZMKIEEOX VAGINITIS (HTRX)Nathan Kiesha DO Work Phone: Start: 69-40-4355Zxcvv dip stick/tablet rgnt non-auto w/o micrscpCorey Kiesha DO Work Phone: Start: 63-17-4328Abftu dip stick/tablet rgnt non-auto w/o micrscpCorey Kiesha DO Work Phone: Start: 69-03-5161Atljcwpi screenMadhuri Monroy MD Work Phone: Start: 96-62-0091Ssmf scrn 1+ class nonchromoNot In System Ref ProvStart: 11-29-2184Bgwlooiduu glycosylated e4yKfgnl R Kiesha DO Work Phone: Start: 54-91-4852Qqjdospvq c antibodyNot In System Ref ProvStart: 22-87-9677NVS 1&2 AB/AG SCREEN (P24 AG)Not In System Ref ProvStart: 12-98-5666Hzig ia hepatitis b surface antigenNot In System Ref ProvStart: 48-40-6302JUVP AND SCREENNot In System Ref ProvStart: 22-26-1845UIT TESTCorey Kiesha DO Work Phone: Start: 09-64-4706Klate dip stick/tablet rgnt non-auto w/o micrscpCorey Kiesha DO Work Phone: Start: 66-59-5246LI OB TRANSVAGINALCorey Kiesha DO Work Phone: Start: 39-32-4373OGG,APTIMA HPV,AGE GDLNCorey Kiesha DO Work Phone: Start: 10-06-9467Xljhsapholi observation [Identifier] in Cervix by Cyto stainCorey Kiesha DO Work Phone: Start: 35-12-5220SAM 12-LEADCorey Kiesha DO Work Phone: Start: 56-13-2034VT PELVIS W/ TRANSVAGINALCorey Kiesha DO Work Phone: Start: 36-78-1334Olrl cerv/vag auto thin layer prep mnl screenCorey Kiesha DO Work Phone: Start: 25-88-6385Sdi pelvis w/o & w/contrast material Charlene Billow DO Work Phone: Start: 78-32-7461Ytele count platelet automatedMichael O'Cormier WELDING INSTRUCTOR - FOOT WORKER Work Phone: Start: 04-93-1708Yqyiy count platelet automatedCassie Constantino MD Work Phone: Start: 51-47-1183Hqbyx streptococcus group b amplified probe tqCassie Constantino MD Work Phone: Start: 39-71-2063LTK and Rh group [Type] in Blood by Confirmatory Carmine Constantino MD Work Phone: Start: 92-35-4850Hrmvz typing serologic aboRevonne Constantino MD Work Phone: Start: 61-98-5508Rqztncwbubuik metabolic panelCassie Constantino MD Work Phone: Start: 89-64-5752Lqxyxweh hiv-1&hiv-2 single result Megadyne [id number]: 67-36-4354Tlch ia hepatitis b surface antigenMegadyne [id number]: 96-72-8972VahsonkyusOUGJVII DITTY Start: 08-30-2020 End: 60-22-7509Wuetdykm screenComment on above:Performed By: #### T+S #### [facility] [address] [place], [place] [address]Zeiny Comment: TEST TYPE + SCREEN WAS CANCELLED, 08/30/2020 13:37 JOP.Performed By: #### T+S #### [facility] [address] [place], [place] [address]Tiksp: [id number] SHOULDER OPEN DISTAL CLAVICLE EXCISION 1CAMERON EDWARD Comment on above:RIGHT SHOULDER OPEN DISTAL CLAVICLE EXCISIONRIGHT SHOULDER OPEN DISTAL CLAVICLE EXCISIONAppendectomyCAMERON EDWARD betamethasone (substance)Fredi DORSEY comment on above:Dose #1: 11/27/22ColonoscopyCAMERON EDWARD Endoscope, device (physical object)[place] LaparoscopyTeri Chau MD Work Phone: Plan of Treatment DateCare ActivityDetailAuthorStart: 62-72-1618Wlldie Vaccines (1 of 2)Zoster Vaccines (1 of 2)[facility] HealthStart: 54-64-0285Icafnzxun for malignant neoplasm of cervixNOMS HealthcareStart: 36-81-6181Nauzxahcv for malignant neoplasm of cervixPap SmearNOMS HealthcareStart: 98-18-9578Inobv BMI ScreeningAdult BMI ScreeningProAccess Hospital [facility] SystemStart: 11-16-8079Vimqfks ScreeningTobacco ScreeningProAccess Hospital [place] SystemStart: 26-63-5609Qyodu BMI ScreeningAdult BMI ScreeningProAccess Hospital [place] SystemStart: 24-29-8421Llbjp BMI ScreeningAdult BMI ScreeningProAccess Hospital [place] SystemStart: 10-14-2025 End: 73-99-6958Esqrkbt encounter bbhrvymcy71/19/2025 3:30 PM EST Routine [facility] Patti MOODY [address] [facility] [place], [id number] Nathan Pop DO [address] [place] [address] NOMS Patti YOUNGNStart: 10-08-2025 End: 26-88-4340Otxeqvg encounter qvfyvhaxp76/13/2025 8:00 AM EST Appointment [facility] [place] [address] [place] [address] [facility] Medicine [facility]bridgeStart: 10-06-2025 End: 63-14-1528Iijxtmwzhjue consultation with vjtaqvq0910/06/2025 2:30 PM EST Telemedicine Maternal- Medicine at [facility] [address] [place] [address] Kayleigh Meza PA-C [address] [place] [address] [facility]: 10-05-2025 End: 88-57-7812Gqogdof encounter xcfnbynhz42/10/2025 3:00 PM EST Office Visit Maternal- Medicine at [facility] [address] [place] [phone] Kayleigh Meza PA-C [address] [place] [address] [facility]: 10-05-2025 End: 34-91-2666Fuhtyvsncapm consultation with zudnbkz3510/05/2025 3:00 PM EST Telemedicine Maternal- Medicine at [facility] [address] [place] [address] Kayleigh Meza PAAlbinC [address] [address] [facility]: 83-08-7459EGJ ( or age 60+ yrs) (1 - Risk 1-dose series)RSV ( or age 60+ yrs) (1 - Risk 1-dose series)[facility]art: 09-30-2025 End: 36-65-9850Atzqjmj encounter procedureNOMS [place] OBGYNComment on above: ArrivedStart: 09-16-2025 End: 20-13-9157YB biophysical profile w non stress testUS biophysical profile w non stress test Imaging Routine Gestational diabetes mellitus (GDM),antepartum, gestational diabetes method of control unspecified ([facility]) Expected: 09/16/2025, Expires: 09/16/2026NOMS HealthcareComment on above:Expected: 09/16/2025, Expires: 09/16/2026Start: 09-15-2025 End: 82-38-3718Faepjoz encounter nvhxyybqd57/21/2025 2:50 PM EDT Routine NOMShalonda YOUNGN [address] [facility] [address] [place], [id number] Zenobia Gutierrez PA [address] [facility] [place] [address] NOMS Patti OBGYNStart: 09-10-2025 End: 77-58-0972Iszsjajcvpnz consultation with ahpvter0409/10/2025 11:00 AM EDT Telemedicine [facility] [place] [address] [phone] Madhuri Monroy MD [address] [address] [facility]: 09-10-2025 End: 24-41-4890Jxbbwao encounter lrgitdbhd80/16/2025 9:45 AM EDT Appointment [facility] [place] [address] [phone] Medicine [facility]Start: 09-07-2025 End: 22-11-2576Czkimqd encounter procedureNOMS BCP OBStart: 09-04-2025 End: 04-65-2094Qvlckmy encounter mjqzppupr09/10/2025 3:00 PM EDT Office Visit Maternal- Medicine at [facility] [address] [place] [address] Mine Denise MD [address] [facility], 1ST [place] [address] [facility]: 09-03-2025 End: 49-02-7976Tupxjtt encounter procedureNO Patti OBGYNComment on above: ArrivedStart: 08-27-2025 End: 48-38-4248Sdopede encounter gvwcwyqnk47/02/2025 3:20 PM EDT Routine NOMShalonda [place] OBGYN [address] [facility] [address] [place], [id number] Steph Keane, DEVYN [address] [facility] [place] [address] NOMS Patti OBGYNStart: 08-27-2025 End: 94-91-1345Obqacna aminotransferase [Enzymatic activity/volume] in Serum or PlasmaALT Lab Routine induced hypertension, antepartum (HHS-HCC) Expected: 08/27/2025 (Approximate), Expires: 08/27/2026[facility] HealthcareComment on above:Expected: 08/27/2025 (Approximate), Expires: 08/27/2026Start: 08-27-2025 End: 28-93-4122Zsszooeky aminotransferase [Enzymatic activity/volume] in Serum or PlasmaAST Lab Routine induced hypertension, antepartum (HHS-HCC) Expected: 08/27/2025 (Approximate), Expires: 08/27/2026NOMS HealthcareComment on above:Expected: 08/27/2025 (Approximate), Expires: 08/27/2026Start: 08-27-2025 End: 32-51-4889XUF W Auto Differential panel - BloodCBC and differential Lab Routine induced hypertension, antepartum (HHS-HCC) Expected: 12/2024 (Approximate), Expires: 08/27/2026NOMS HealthcareComment on above: Expected: 08/27/2025 (Approximate), Expires: 08/27/2026Start: 08-27-2025 End: 53-24-6082Uzegfrybhq [Mass/volume] in Serum or PlasmaCreatinine Lab Routine induced hypertension, antepartum (HHS-HCC) Expected: 08/27/2025 (Ap proximate), Expires: 08/27/2026[facility] Healthcare Work Phone: comment on above:Expected: 08/27/2025 (Approximate), Expires: 08/27/2026Start: 08-27-2025 End: 73-51-5595Nfskwxt dehydrogenase [Enzymatic activity/volume] in Serum or Plasma by Lactate to pyruvate reactionLactate dehydrogenase Lab Routine induced hypertension, antepartum (HHS-HCC) Expected: 08/27/2025, Expires: 08/27/2026[facility] HealthcareComment on above:Expected: 08/27/2025, Expires: 08/27/2026Start: 08-27-2025 End: 70-38-8505Fqygibk, urine, 24 hourProtein, urine, 24 hour Lab Routine induced hypertension, antepartum (HHS-HCC) Expected: 08/27/2025 (Approximate), Expires: 08/27/2026[facility] HealthcareComment on above:Expected: 08/27/2025 (Approximate), Expires: 08/27/2026Start: 08-27-2025 End: 89-12-9142Kb and pttPt and ptt Lab Routine induced hypertension, antepartum (HHS-HCC) Expected: 08/27/2025, Expires: 08/27/2026[facility] Healthcare Comment on above:Expected: 08/27/2025, Expires: 08/27/2026Start: 08-27-2025 End: 46-77-5202Sgcjt [Mass/volume] in Serum or PlasmaUric acid Lab Routine induced hypertension, antepartum (HHS-HCC) Expected: 08/27/2025 (Bouchra roximate), Expires: 08/27/2026[facility] HealthcareComment on above:Expected: 08/27/2025 (Approximate), Expires: 08/27/2026Start: 08-27-2025 End: 72-42-5022Paxo nitrogen [Mass/volume] in Serum or PlasmaBUN Lab Routine induced hypertension, antepartum (HHS-HCC) Expected: 08/27/2025, Expires:08/27/2026[facility] HealthcareComment on above:Expected: 08/27/2025, Expires: 08/27/2026Start: 08-27-2025 End: 53-64-9405EF biophysical profile w non stress testUS biophysical profile w non stress test Imaging Routine induced hypertension, antepartum (HHS-HCC) Gestational diabetes mellitus (GDM) in second trimester, gestational diabetes method of control unspecified ([facility]) Expected: 08/27/2025 (Approximate), Expires: 02/25/2026[facility] HealthcareComment on above:Expected: 08/27/2025 (Approximate), Expires: 02/25/2026Start: 08-24-2025 End: 74-46-6957pkzkkaangi37/29/2025 1:30 PM EDT Support Visit Maternal- Medicine at [facility] [address] [place] [address] Teena Sarmiento RN [address] [facility], [address] [place] [address] Kerline Augustin, RD [address] [facility], [address] [place] [address] [facility]: 08-24-2025 End: 97-73-9347Yypvorn encounter uwxnmforh75/29/2025 11:00 AM EDT Office Visit [facility] BCP OB [address] [facility] [phone] Nathan Pop DO [address] [place] [address] NOMS BCP OBStart: 08-12-2025 End: 07-07-3474Wzhvdci encounter rdazpawfs63/17/2025 2:40 PM EDT Routine NOM[facility] Patti OBGYN [address] [facility] [address] [place], [id number] Nathan Pop DO [address] [facility] [place] [address] LANETTE [place] OBGYNStart: 08-12-2025 End: 95-17-2242Dykpnfyzcav of glucose 3 hours after glucose challenge for glucose tolerance testGlucose tolerance, 3 hours Lab Routine Elevated glucose tolerance test Expected: 08/12/2025 (Approximate), Expires: 08/12/2026[facility] Work Phone: comment on above:Expected: 08/12/2025 (Approximate), Expires: 08/12/2026Start: 08-12-2025 End: 42-65-2084Xcigyntlhpyv / ancillary services ybjpymyaur29/17/2025 2:00 PM EDT Ancillary Procedure LANETTE MOODY [address] [place] [address] [place] [address] YYKL Patti OBGYNStart: 07-31-2025 End: 49-83-8257CBU W Auto Differential panel - BloodCBC and differential Lab Routine Hypertension, unspecified type Wellness examination Expected: 07/31/2025 (Approximate), Expires: 08/29/2025[facility] Work Phone: Comment on above:Expected: 07/31/2025 (Approximate), Expires: 08/29/2025Start: 07-31-2025 End: 46-34-9866Yqlnwfcyqjags metabolic 2000 panel - Serum or PlasmaComprehensive metabolic panel Lab Routine Hypertension, unspecified type Wellness examination Expected: 07/31/2025 (Approximate), Expires: 08/29/2025[facility] HealthcareComment on above:Expected: 07/31/2025 (Approximate), Expires: 08/29/2025Start: 07-31-2025 End: 69-40-8586Nbrwx 1996 panel - Serum or PlasmaLipid panel Lab Routine Wellness examination Lipid screening Expected: 07/31/2025 (Approximate), Exp ires: 08/29/2025[facility] HealthcareComment on above:Expected: 07/31/2025 (Approximate), Expires: 08/29/2025Start: 07-30-2025 End: 49-29-7505Yyrpqjk encounter /04/2025 3:40 PM EDT Office Visit N[facility] [address] [place] [address] Eliceo Beltran DO [address] [place] [address] ArrivedNOFormerly [facility] 230Comment on above:ArrivedStart: 45-41-2443YLUFS-19 Vaccine ( season)COVID-19 Vaccine ( season)NOMS HealthcareStart: 07-27-2025 Influenza vaccinationNODC HealthcareStart: 07-15-2025 End: 73-10-8474Gonjwue encounter fcsdmapxd91/20/2025 3:30 PM EDT Routine NOMS Patti MOODY [address] [facility] [address] [place], [id number] Nathan Pop DO [address] [facility] [place] [address] NOMShalonda [place] OBGYNStart: 07-15-2025 End: 05-32-6939Fxgpweefzwrj / ancillary services tgsjtfwoex97/20/2025 2:30 PM EDT Ancillary Procedure NOMShalonda MOODY [address] [place] [phone] NOMS [place] OBGYNStart: 07-15-2025 End: 47-38-7324HVI panel - Blood by Automated countCBC Lab Routine Diabetes mellitus screening Expected: 07/15/2025 (Approximate), Expires: 07/15/2026[facility] Work Phone: comment on above:Expected: 07/15/2025 (Approximate), Expires: 07/15/2026Start: 07-15-2025 End: 82-99-3119Cihssnsaosm of glucose 1 hour after glucose challenge for glucose tolerance testGlucose tolerance, 1 hour Lab Routine Diabetes mellitus screening Expected: 07/15/2025 (Approximate), Expires: 07/15/2026[facility] HealthcareComment on above:Expected: 07/15/2025 (Approximate), Expires: 07/15/2026Start: 06-22-2025 End: 86-82-3557Rffpabf encounter eoqoevdnc76/28/2025 2:10 PM EDT Routine NOMS Patti OBGYN [address] [facility] [address] [place], [id number] Nathan Pop DO [address] [place], [place] [phone] ArrivedVALLEY [facility]IEW [facility] Patti OBGYNComment on above:ArrivedStart: 06-22-2025 End: 48-75-8729Elcqm fetoprotein, maternalAlpha fetoprotein, maternal Lab Routine Second trimester ([facility]) 17 weeks gestation of ([facility]) Expected: 06/22/2025 (Approximate), Expires: 12/23/2025[facility] Comment on above:Expected: 06/22/2025 (Approximate), Expires: 12/23/2025Start: 06-22-2025 End: 84-60-9198TE for pregnancyUS OB 14+ weeks anatomy scan Imaging Routine Screening, , for anatomic survey ([facility]) Expected: 06/22/2025, Expires: 09/22/2025[facility] Work Phone: comment on above:Expected: 06/22/2025, Expires: 09/22/2025Start: 05-25-2025 End: 04-06-8791Maebyur encounter simapbayl21/30/2025 2:40 PM EDT Routine NOMS BCP OB [address] [facility] [address] Nathan Pop, DO [address] [place] [address] NOMS BCP OBStart: 05-01-2025 End: 53-76-3037KZC/RhABO/Rh Lab Routine Missed menses , unspecified gestational age Expected: 05/01/2025 (Approximate), Expires: 05/01/2026N[facility]S HealthcareComment on above:Expected: 05/01/2025 (Approximate), Expires: 05/01/2026Start: 05-01-2025 End: 30-18-9450Gzgfs type and Indirect antibody screen panel - BloodType and screen Lab Routine Missed menses , unspecified gestational age Expected: 05/01/2025 (Approximate), Expires: 05/01/2026[facility] Work Phone: comment on above:Expected: 05/01/2025 (Approximate), Expires: 05/01/2026Start: 05-01-2025 End: 38-27-6689Kzycs of abuse panel - Urine by Screen methodRapid drug screen, urine Lab Routine , unspecified gestational age Encounter for supervision of normal first in first trimester Expected: 05/01/2025 (Approximate), Expires: 05/01/2026NOMS HealthcareComment on above:Expected: 05/01/2025 (Approximate), Expires: 05/01/2026Start: 01-19-2025 End: 90-35-0013Huozzso encounter procedureNOMS BCP OBComment on above:Arrived Start: 01-19-2025 End: 40-63-2309TkueuiucqtsuTfaideznzpfy Lab Routine Pain in female genitalia on intercourse Endometriosis Expected: 01/19/2025(Approximate), Expires: 01/19/2026 [facility] Work Phone: comment on above:Expected: 01/19/2025 (Approximate), Expires: 01/19/2026Start: 08-18-2024 End: 68-55-0413Lepkhnn encounter procedureNOMS BCP OBComment on above:Arrived Start: 06-16-4269Kwqommttg vaccinationOhiohealth O'Bleness Hospitalveland ClinicStart: 07-22-2024 End: 71-92-6807TM for pregnancyUS PELVIS-TRANSVAG IF INDICATED Imaging Routine Dysmenorrhea, unspecified Expected: 07/22/2024 (Approximate), Expires: 07/22/2025[facility] Work Phone: comment on above:Expected: 07/22/2024 (Approximate), Expires: 07/22/2025Start: 06-23-2024 End: 77-11-1510Expvfca encounter tsbwoqscu43/29/2024 10:30 AM EDT Office Visit Obstetrics/Gynecology [address] [phone] Charlene Rodriguez, [address] [place] [address] 2 WEEK POST OPObstetrics/GynecologyComment on above:2 WEEK POST OPStart: 05-27-2024 End: 95-53-6869Ecmesfahr to same day surgery ekglwm3705/27/2024 7:30 AM EDT - 05/27/2024 9:30 AM EDT Surgery [facility] [address] [place] [address] Kuldip Charlene, [address] [place] [address] LAPAROSCOPY FULGURATION OR EXCISION OF LESIONS OF THE OVARY PELVIC VISCERA OR PERITONEAL SURFACE BY ANY METHODChildren'S Hospital Of Columbus SurgeryComment on above:LAPAROSCOPY FULGURATION OR EXCISION OF LESIONS OF THE OVARY PELVIC VISCERA OR PERITONEAL SURFACE BYANY METHODStart: 05-27-2024 End: 46-95-2881Drnj fulg/exc ovary viscera/peritoneal surfaceLAPAROSCOPY FULGURATION OR EXCISION OF LESIONS OF THE OVARY PELVIC VISCERA OR PERITONEAL SURFACE BYANY METHOD Endometriosis 05/27/2024 7:30 AM EDTME ORStart: 05-27-2024 Subsequent hospital visit by nswldljus37/02/2024 7:30 AM EDT Hospital Encounter [facility] [address] [place] [address] Charlene Rodriguez, DO [address] [place] [address] [phone] (F ax) Endometriosis [N80.9][facility] SurgeryComment on above:Endometriosis [N80.9]Start: 05-29-8316Cguxxvbsn vaccinationInfluenza Vaccine (#1)NOMS HealthcareComment on above:Postponed from 07/27/2023 (Patient Refused)Start: 05-20-2024 End: 30-70-8943msqkwrsjfr53/25/2024 10:00 AM EDT [facility] [employer] FLOORMAN UROL JUNCOS [facility] [address] [address] [place], [employer] Nurse [address] [address] RN TEACHINGGYN [facility] MOBComment on above:RN TEACHINGStart: 04-22-2024 End: 59-45-9325Jtaqtjp encounter yrklcrysy63/28/2024 9:00 AM EDT Office Visit N[facility]S SEP [address] [place] [address] Denny Rodríguez MD [address] [place] [address] NOMS SEP FMStart: 18-79-6105SBdO,Tdap and Td Vaccines (7 - Td or Tdap)DTaP,Tdap and Td Vaccines (7 - Td or Tdap)[facility] SystemStart: 82-50-0679YIqO/Tdap/Td Vaccines (7 - Td or Tdap)DTaP/Tdap/Td Vaccines (7 - Td or Tdap)[facility] HospitalStart: 45-40-4970Jflvx microalbumin profileDTaP,Tdap,Td Vaccine (7 - Td or Tdap)[facility]: 01-30-2024 End: 58-99-6400Scwjwul encounter /06/2024 11:10 AM EST Consult NOMS BCP OB [address] [place] [phone] Nathan Pop, [address] [place] [place], [place] [address] NOMS BCP OBStart: 01-15-2024 End: 25-19-1462Jmzgdupzlqgy / ancillary services purocagvem60/20/2024 8:00 AM EST Ancillary Procedure [facility] OB [address] [place] [address] N[facility]S [facility] OBStart: 01-10-2024 End: 12-92-8049ZT for pregnancyUS PELVIS-TRANSVAG IF INDICATED Imaging Routine Pelvic pain in female Expected: 01/10/2024 (Approximate), Expires: 01/10/2025 [facility] Healthcare Work Phone: comment on above:Expected: 01/10/2024 (Approximate), Expires: 01/10/2025Start: 03-90-4478Fgittrnisv Health ScreeningBehavioral Health ScreeningOhioHealth Riverside Methodist Hospitaltart: 75-80-0601Hrvgnhavfp AssessmentDepression AssessmentOhioHealth Riverside Methodist Hospitaltart: 80-07-3502Ocosd-19 Vaccine ( season) Covid-19 Vaccine ()[facility]: 62-60-8514Dinvuamkt vaccinationOhioHealth Riverside Methodist Hospitaltart: 06-53-2188YZHBBHGGAP ASSESSMENTDEPRESSION ASSESSMENTOhioHealth Riverside Methodist Hospitaltart: 00-81-6493Qewfycmgg vaccinationInfluenza Vaccine (#1)[facility] HospitalStart: 11-69-8663ATM, Provider: Charlene Rodriguez, Status: Pen, Time: 1:30 PMFUV, Provider: Charlene Rodriguez, Status: Pen, Time: 1:30 PM RA-ITHDF-Suuodw [address] Work Phone: Start: 73-82-8401LPT, Provider: Charlene Rodriguez, Status: Pen, Time: 11:15 AMFUV, Provider: Charlene Rodriguez, Status: Pen, Time: 11:15 AM AM-MXFWP-Trlthi [address] Work Phone: Start: 08-55-4422IXE TESTINGPAP TESTINGOhioHealth Riverside Methodist Hospitaltart: 13-83-5696Jleoagmyo for malignant neoplasm of cervixOhioHealth Riverside Methodist Hospitaltart: 13-93-2577PJcJ,Tdap and Td Vaccines (1 - Tdap)DTaP,Tdap and Td Vaccines (1 - Tdap)[facility]: 69-37-1955VExD/Tdap/Td Vaccines (1 - Tdap)DTaP/Tdap/Td Vaccines (1 - Tdap)[facility] HospitalStart: 41-23-8318Kncgs microalbumin profileOhioHealth Riverside Methodist Hospitaltart: 60-75-7825Qhdeg BMI Follow Up Plan Adult BMI Follow Up PlanNovant Health Pender Medical Centertart: 39-32-0089Dkeyf BMI ScreeningAdult BMI ScreeningNovant Health Pender Medical Centertart: 85-42-0027ZOAVPQ PCP TEAM CHRONIC DISEASE VISITANNUAL PCP TEAM CHRONIC DISEASE VISITChillicothe [facility] Start: 62-69-6790YA CONTROLLED (<130/80)BP CONTROLLED (<130/80)[facility] Start: 93-13-3067TCYNYUYAX C SCREENINGHEPATITIS C SCREENINGChillicothe Hospital Start: 48-97-1794Akjbpmeia C screeningHepatitis C ScreeningChillicothe Hospital Start: 04-00-5044RVW SCREENINGHIV SCREENINGOhioHealth Riverside Methodist Hospitaltart: 03-38-7431ROI screeningHIV ScreeningOhioHealth Riverside Methodist Hospitaltart: 67-79-9948Xhcneab of varicella vaccinationVaricella Vaccines (1 of 2 - 13+ 2-dose series)[facility]Start: 35-75-4055Lfgkmdumqu ScreeningDepression ScreeningNovant Health Pender Medical Centertart: 83-06-7982Hhqytdd ScreeningTobacco ScreeningNovant Health Pender Medical Centertart: 30-74-0317Ycpjnahkh vaccinationVaricella Vaccines (1 of 2 - 2-dose childhood series)[facility] HospitalStart: 30-08-2046BRS Vaccines (1 of 1 - Standard series)MMR Vaccines (1 of 1 - Standard series)[facility] HospitalStart: 80-17-6204Lzzpyqcsl vaccinationVaricella Vaccines (1 of 2 - 2-dose childhood series)[facility] Start: 87-89-8785LLHCA-19 VACCINE (#1)COVID-19 VACCINE (#1)[facility] Start: 18-39-1965BQZHJKMLG B (1 of 3 - 3-dose series)HEPATITIS B (1 of 3 - 3- dose series)[facility] Hospital[facility]art: 23-72-0762Fmnsroafx B Vaccine (1 of 3 - 3- dose series)Hepatitis B Vaccine (1 of 3 - 3-dose series)[facility] Hospitaltart: 87-19-9865Bizdynqts B Vaccines (1 of 3 - 3-dose series)Hepatitis B Vaccines (1 of 3 - 3-dose series)[facility] HospitalStart: 38-71-9598Decfg panelLipid PanelSumma HealthBacteria identified in Urine by CultureUrine culture Microbiology Routine Missed menses Ordered: 05/01/2025[facility] HealthcareComment on above:Ordered: 05/01/2025BC W Auto Differential panel - BloodCBC and differential Lab Routine Missed menses , unspecified gestational age Ordered: 05/01/2025[facility] HealthcareComment on above:Ordered: 05/01/2025ytology Cervical or vaginal smear or scraping studyPap Smear Pathology and Cytology Routine Well woman exam with routine gynecological exam Ordered: 08/18/2024[facility] Healthcare Work Phone: comment on above:Ordered: 08/18/2024Hemoglobin A1c/Hemoglobin.total in BloodHemoglobin A1c Lab Routine Missed menses , unspecified gestational age Ordered: 05/01/2025[facility] HealthcareComment on above: Ordered: 05/01/2025Hepatitis B virus surface Ag [Presence] in Serum or Plasma by ImmunoassayHepatitis B surface antigen Lab Routine Missed menses , unspecified gestational age Ordered: 05/01/2025[facility] HealthcareComment on above: Ordered: 05/01/2025Hepatitis C virus Ab [Presence] in Serum or Plasma by ImmunoassayHepatitis C antibody Lab Routine Missed menses , unspecified gestational age Ordered: 05/01/2025[facility] HealthcareComment on above:Ordered: 05/01/2025HIV-1/HIV-2 antigen/antibody combination immunoassayHIV-1 and HIV-2 antibodies Lab Routine Missed menses , unspecified gestational age Ordered: 05/01/2025[facility] HealthcareComment on above:Ordered: 05/01/2025 End: 36-20-2260Ajh pelvis w/o & w/contrast materialMRI FEMALE PELVIS WO/W IVCON Radiology Routine Pelvic and perineal pain 1 Occurrences starting 05/17/2023 until [facility] Work Phone: Comment on above:1 Occurrences starting 05/17/2023 until 4Reagin Ab [Presence] in Serum by RPRRPR Lab Routine Missed menses , unspecified gestational age Ordered: 05/01/2025[facility] Healthcare Comment on above:Ordered: 05/01/2025Rubella antibody, IgGRubella antibody, IgG Lab Routine Missed menses , unspecified gestational age Ordered: 04/2025[facility] HealthcareComment on above:Ordered: 05/01/2025 End: 66-43-0958UbebciCooper County Memorial Hospital Work Phone: Comment on above:Once (Lab) for 1 Occurrences starting 11/30/2022 until 11/30/2022, 1 completed End: 29-29-3164VP for pregnancyUS OB follow up transabdominal approach Imaging Routine Gestational diabetes mellitus (GDM), antepartum, gestational diabetes method of control unspecified ([facility]) every 4 weeks for 2 Occurrences starting 09/16/2025 until 12/17/2025[facility] Work Phone: comment on above:every 4 weeks for 2 Occurrences starting 09/16/2025 until 6CFairfield Medical CenterME OR Immunizations Immunization DateImmunizationNotesCare HqjwyupyIasxatmu44-90-3823dfmjoetrb A vaccine, adult dosageCorey Kiesha DO Work Phone: [facility] InstitutePxgdwgwmzc52-38-2929jxghz papilloma virus vaccine, quadrivalentCorey Kiesha DO Work Phone: [facility] InstituteZpprzutlen27-29-1208eovkyfklw, seasonal, injectable, preservative freeCorey Kiesha DO Work Phone: [facility] InstituteHbiolzoiak02-54-4896ruldxnxon virus vaccine, unspecified formulationGina Moschella DO Work Phone: [facility] HospitalUkgpav36-70-9846fqbxm papilloma virus vaccine, quadrivalentCorey Kiesha DO Work Phone: [facility] InstituteEunrjzwsxv73-61-3120phqenjxoi A vaccine, adult dosageCorey Kiesha DO Work Phone: [facility] InstituteLelndotlsv03-04-2436ippzb papilloma virus vaccine, quadrivalentCorey Kiesha DO Work Phone: [phone] InstituteFmnitkfggh27-99-4828dmwohoz toxoid, reduced diphtheria toxoid, and acellular pertussis vaccine, adsorbedCorey Kiesha DO Work Phone: [facility] InstituteYrqvsmuojw31-73-1948yzahwecuogtnm polysaccharide (groups A, C, Y and W-135) diphtheria toxoid conjugate vaccine (MCV4P)Nathan Kiesha DO Work Phone: [facility] InstituteRsegjxtmmp07-71-5656xogjeozbaf, tetanus toxoids and acellular pertussis vaccine, unspecified formulationCorey Kiesha DO Work Phone: [phone] InstituteFgvedgztuq37-79-2779cfuhzeb, mumps and rubella virus vaccineCorey Kiesha DO Work Phone: [facility] InstituteDtkrjnqixj27-42-0915yqloppoyei vaccine, inactivatedCorey Kiesha DO Work Phone: [phone] InstituteDlauwnyptv43-38-8983wzlryesxye, tetanus toxoids and acellular pertussis vaccine, unspecified formulationCorey Kiesha DO Work Phone: [facility] InstituteReetldtefo39-75-5723TFQ-Vsjjlxfmpfg influenzae type b conjugate vaccineCorey Kiesha DO Work Phone: [facility] InstituteRrodzgjndb09-84-3552gtfmatzoo B vaccine, pediatric or pediatric/adolescent dosageCorey Kiesha DO Work Phone: [phone] InstituteWmntqcyqgv05-96-5143ygwdxkd, mumps and rubella virus vaccineCorey Kiesha DO Work Phone: [phone] InstituteExlxcdvbpg56-87-8269snffsbzeq poliovirus vaccine, live, oralCorey Kiesha DO Work Phone: [phone] InstituteFxutszqkja17-17-5090VRL-Xidpbxarjem influenzae type b conjugate vaccineCorey Kiesha DO Work Phone: [facility] InstituteNdvaaajegt13-67-6752bbcvmtghq B vaccine, pediatric or pediatric/adolescent dosageCorey Kiesha DO Work Phone: NOSaint [facility] CenterDnnkgyrjbq77-36-6670wqirxakqe poliovirus vaccine, live, oralCorey Kiesha DO Work Phone: [facility] InstituteRobbnuhsvz60-30-0461CUY-Ffbxhesnidc influenzae type b conjugate vaccineCorey Kiesha DO Work Phone: NOSaint [facility] CenterWhphvblrel07-14-6560jxwbvrasq B vaccine, pediatric or pediatric/adolescent dosageCorey Kiesha DO Work Phone: NOSaint [facility] CenterDgvdpxilfs96-00-3674qwlwbioqk poliovirus vaccine, live, oralCorey Kiesha DO Work Phone: [facility] HealthcareNEGATED: Highlighted row has not occurred!11-83-0148uoumdgs, mumps and rubella virus vaccineKatherine Allen DO Work Phone: [facility] HealthComment on above:Deferred: Other - Rubella ImmuneNEGATED: Highlighted row has not occurred!96-59-5782rmhndnn toxoid, reduced diphtheria toxoid, and acellular pertussis vaccine, adsorbedKatcarlos Ryder DO Work Phone: [facility] HealthComment on above:Deferred: No longer needed - Refused Tdap vaccine. Payers DatePayer CategoryPayerPolicy [id number] Managed Care - [employer] [id number] HMOUN[facility] MEDICAID [id number] [id number] 26-61-3601[facility] [id number]330.12345-87-7944Wxqafuf45-04-2123 NbtovyfRVS951Q8366734-13-9940Lhtwlsv Health Insurance [id number] [id number] Health [id number] 2.840.1.599766.3.579.2.174 [id number] 2.16.840.1.561282.3.57[id number] 2.840.1.699202.3.57[id number] 2.840.1.019819.3.57[id number] 2.0.1.409732.3.57[id number] 2.0.1.149125.3.57[id number] 2..1.701887.3.57[id number] 2..1.647783.3.57[id number] 2..1.380173.3.57[id number] 2..1.355689.3.579.[id number] 2..1.001714.3.57[id number] 2..1.096515.3.579.2.307711-40-7483Xpithmv54697575 2..1.763279.3.57[id number] 2..1.582748.3.579.2.[id number] 2.0.1.670401.3.57[id number] 2.0.1.712842.3.57[id number] 2.16.840.1.558580.3.57[id number] 2.16.840.1.319846.3.57[id number] 2.16.840.1.713871.3.57[id number] 2.16.840.1.928386.3.57[id number] 2.16.840.1.475448.3.579.2.402413-02-9929Wyekpbi69410450 2.16.840.1.892561.3.579.2.194352-90-7863Gjujlra22224702 2.16.840.1.362333.3.579.2.846[id number] 2.16.840.1.828857.3.579.2.302704-46-4632Rzoyigp3285851 2.16.840.1.032155.3.579.2.454626-85-4277Zugvugq2518614 2.16.840.1.910429.3.579.2.3303Zzmxygn93053172 2.0.1.199749.3.579.2.531 Social History DateTypeDetailFacilityStart: 01-06-2021 End: 08-59-0803Slmjsl uses seat beltAlways uses seat beltNOMS HealthcareStart: 12-10-2018 End: 90-95-2536Wujwpjo smoking statusNever smoked tobacco (finding)[facility] Systemtart: 57-37-0849Ecgzzet smoking statusNeverOhio State Health Systemtart: 01-06-2021 End: 92-47-2437Zjt [facility]igned At [facility] Contapps Other TobaccoFiChillicothe VA Medical CenterComment on above: denies.Tobacco smoking statusOhio State Health Systemtart: 12-10-2018 End: 91-30-5442Kfqssbl use and exposureSmokeless tobacco non-userOhioHealth Riverside Methodist Hospitaltart: 04-11-2023 End: 48-95-7333Hnbetgo intakeCurrent drinker of alcohol (finding)[facility] Hospitaltart: 01-03-8344Lhdbnuo Commentmaybe a few drinks a monthChillicothe Hospital Start: 43-56-4746Fls Assigned At BirthNot on [facility] HealthStart: 01-10-2024 End: 85-92-0995Fahdgup intakeLifetime non-drinker (finding)[facility] HospitalWithin the last year, have you been afraid [...] got money to buy more.Never trueNOMS HealthcareStart: 05-11-0418Vcqlsqbnj13LGNJ HealthcareStart: 02-43-3623Ocevkgo Commentcaffeine: 1-2 cups per day, coffee and popNODC HealthcareStart: 23-94-7753Aoyvidl SDOH IPV Ocjk5Scepl HealthStart: 09-43-7029Jdnriod SDOH Housing Places Piwqr4Llvgy HealthStart: 04-12-2022 [facility] HealthStart: 11-18-2022 End: 38-24-9539Zhbglafp to SARS-CoV-2 (event)Not sureSumma HealthAre you now , , , , never or living with a partner? MarriedNODC HealthcareDo you feel stress - tense, restless, nervous, or anxious, or unable to sleep at night because yourmind is troubled all the time - these days [OSQ]Only a littleNOMS HealthcareStart: 12-02-2018 End: 29-93-5762AsmAwkirg (finding)[facility] Shawtart: 93-71-1460Ezw Assigned At [facility] Hospitaltart: 08-19-2025 End: 90-80-9704Barynmgyn beverage intakeCurrent non-drinker of alcohol (finding) [facility] Medical Equipment Procedure CodeEquipment CodeEquipment Original TextEquipment IdentifierDates [id number]: 08-20-2025 End: each by In Vitro route Daily Use to check FSBS four times daily [id number]: 08-20-2025 End: 24-04-7587Vau pen needles to give insulin.[id number]: 09-04-2025 Functional Status MkftThkrhyfkgbCfwwvnLuwazwpg75-80-8492Qqoyv score [AUDIT-C]0 09/10/2025 10:17 AM Danae NeumannRappahannock [facility] Hospital09-04-2025Patient Health Questionnaire 2 item (PHQ-2) [Reported][facility] InstituteMagvxowajs76-04-5693Flixy score [AUDIT-C]1 12/29/2024 10:25 PM EST Mychart, GenericNOMS Wwapobmooj31-53-0774Zfv often do you have a drink containing alcohol?Monthly or less 12/29/2024 10:25 PM EST Mychart, Generic Monthly or lessNOMS Vaztrjbgza63-52-3928Ivomueayvm status Patient does not drink 12/29/2024 10:25 PM EST Mychart, Generic Patient does not drinkNOMS Ucgvipaiiz96-96-1708Kpl often do you have 6 or more drinks on 1 occasion?Never 12/29/2024 10:25 PM EST Mychart, Generic NeverNOMS [facility] 51-97-1971Anoelxc Health Questionnaire 2 item (PHQ-2) [Reported][facility] 96-95-0772Tbngkkyosl StatusN/[facility]03-08-2023Functional StatusN/[facility]02-04-2023Functional StatusN/[facility]01-02-2023Functional StatusN/[facility] 07-14-2022N/[facility] Clinical Notes 04-18-2022 to 10-05-2025 Note Date & WzenDwqwFxtgjfws02-13-0272 Miscellaneous Notes* Telephone Encounter - Anjana Davalos RN - 10/05/2025 2:39 PM EST Left message for patient to send in blood sugar logs prior to video visit toady in [facility] at 3 PM. Also, Instructed patient to contact [facility] if unable to keep appointment today at [facility], then to call at [phone] option 1 to reschedule. documented [address] [facility] [facility]11-10-2025 Telephone encounter Note* Telephone Encounter - Anjana Davalos RN - 10/05/2025 2:39 PM EST Left message for patient to send in blood sugar logs prior to video visit toady in [facility] at 3 PM. Also, Instructed patient to contact [facility] if unable to keep appointment today at [facility], then to call at [phone] [facility]11-05-2025 History of Present illness Narrative* Radha Rahman MA - 09/30/2025 3:00 PM [...] John San infection GDM (gestational diabetes mellitus) ([facility]) Headache History of menstrual cramps ([facility]) Varicella zoster Visual impairment HISTORY PAST MEDICAL HISTORY SOCIAL HISTORY Past Medical History: Diagnosis Date Amenorrhea d/t oral contraceptive pills Endometriosis John San infection GDM (gestational diabetes mellitus) ([facility]) Headache History of menstrual cramps severe Hypertension ([facility]) x1 Varicella zoster unsure Visual [...] History: Procedure Laterality Date APPENDECTOMY 05/2016 at [facility] 12/2022 retained placenta DISTAL [...] nursing note reviewed. Exam conducted with a wood patternmaker apprentice present. Vitals: Estimated body mass index is 30.36 kg/m as calculated from the following: Height as of 07/30/25: 5' 2 . Weight as of this encounter: 166 lb. BP: 140/82 Patient's last menstrual period was 02/21/2025. Assessment/Plan ICD-10-CM 1. Third trimester ([facility]) Z34.93 POCT urinalysis dipstick manually resulted 2. 31 weeks gestation of ([facility]) Z3A.31 3. Pre-eclampsia in third trimester ([facility]) O14.93 Return OB: Patient presents [...] of: Nathan Pop DO documented in this encounterFreeman Heart InstituteDyghlnhyrz50-67-6726 Miscellaneous Notes* Telephone Encounter - Cha Harris [...] change for this week. documented [facility]11-03-2025 Telephone encounter Note* Telephone Encounter - [...] this new insulin change for this week. [facility]10-27-2025 Miscellaneous Notes* Telephone Encounter - SILKE [...] blood sugar logs weekly. documented in this [facility]10-27-2025 Telephone encounter Note* Telephone Encounter [...] to send in blood sugar logs weekly. [facility]10-27-2025 History of Present illness Narrative* Kayleigh Meza PA-C - 09/21/2025 12:28 PM EDT Insulin dose increased due to elevated fastings. Kayleigh Meza PA-C 09/21/25 1229 documented in this [facility]10-22-2025 Miscellaneous Notes* Telephone Encounter - [...] blood sugars next week. documented in [address] [facility]Wilson [address] [facility]10-22-2025 Telephone encounter Note* Telephone Encounter - [...] send in new blood sugars next week. [facility]10-22-2025 History of Present illness Narrative* Steph Keane [...] John San infection GDM (gestational diabetes mellitus) ([facility]) Headache History of menstrual cramps ([facility]) Varicella zoster Visual impairment HISTORY PAST MEDICAL HISTORY SOCIAL HISTORY Past Medical History: Diagnosis Date Amenorrhea d/t oral contraceptive pills Endometriosis John San infection GDM (gestational diabetes mellitus) ([facility]) Headache History of menstrual cramps severe Hypertension ([facility]) x1 Varicella zoster unsure Visual [...] History: Procedure Laterality Date APPENDECTOMY 05/2016 at [facility] 12/2022 retained placenta DISTAL [...] nursing note reviewed. Exam conducted with a wood patternmaker apprentice present. Vitals: Estimated body mass index is 29.78 kg/m as calculated from the following: Height as of 07/30/25: 5' 2 . Weight as of this encounter: 162 lb 12.8 oz. BP: 120/80 Patient's last menstrual period was 02/21/2025. Assessment/Plan ICD-10-CM 1. 29 weeks gestation of ([facility]) Z3A.29 POCT urinalysis dipstick manually resulted 2. Third trimester ([facility]) Z34.93 POCT urinalysis dipstick manually resulted 3. Hypertension affecting , antepartum ([facility]) O16.9 4. Gestational diabetes mellitus (GDM), antepartum, gestational diabetes method of control unspecified ([facility]) O24.419 Return OB: Patient presents today [...] and continues to report glucose log to [facility]. Follow up Ultrasound in 4 weeks. Orders Placed This Encounter Procedures POCT urinalysis dipstick manually resulted Follow Up: Patient is to return to office in 2 week for routine OB appointment. Documented by Steph Keane NP on behalf of: Nathan Pop DO documented in this encounterFreeman Heart InstituteDtqaoxpowj77-28-4271 History of Present illness Narrative* Madhuri Monroy MD - 09/10/2025 11:00 AM EDT Video Visit via Real-time Synchronous Audiovisual Provider Location: [facility]- MEDICINE [address] [place] [address], [address] [place] [id number] Patient Location: [facility] OB office Patient Location Bait Man: None Video Visit Consent Statement: I discussed [...] that there are some limitations compared to lmxg-gf-lnpt evaluations. We elected to proceed. REASON FOR [...] and the other consultants, we search on [employer] and all the available care everywhere epic I did review all the imaging studies of the patient available on EMR, ordered by the primary care physician and the other financial services education consultant HABITS: Patient activity no restrictions, diet [...] checking blood glucose and remote evaluation through [facility] office until delivery. - Discontinue blood glucose evaluation and Lantus and offer formal glucose tolerance test around 6 weeks . - follow-up survey with the [facility] office visits scheduled. 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 Patient does have ultrasound video visit scheduled [...] the provider today? none documented in this encounterCleveland Clinic Mercy HospitalQuad Learning Stcgqj20-99-2995 History of Present illness Narrative* Radha Magdaleno [...] Yes Have you been seen here at [facility] in a previous ? No Recent ER visits or hospitalizations? 09/03/25 [place] to r/o preeclampsia. Patient states labs WNL Bring blood sugar log or meter with you today? (Please bring them with you for every visit at [facility]) Yes Flu vaccine (Sep-January)? N/A Any [...] trimester Past Medical History: Diagnosis Date Endometriosis Ojhn San infection History of pre-eclampsia Hypertension Migraine [...] and the other consultants, we search on [employer] and all the available care everywhere epic I did review all the imaging studies of the patient available on EMR, ordered by the primary care physician and the other financial services education consultant HABITS: Patient activity no restrictions, diet [...] checking blood glucose and remote evaluation through [facility] office until delivery. 5. 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 Patient does have ultrasound video visit scheduled [...] with questions or concerns. documented in this encounterCleveland Clinic Mercy HospitalSnapTell Mymichigan [facility] West BranchBhmcmu20-61-5802 History of Present illness Narrative* Steph Keane [...] meal for a total of 4times daily. aerkcfkbmh-efqnfiv-jvnsiuki (Fiorinal) 50-325-40 MG capsule 1 capsule, Oral, [...] History: Procedure Laterality Date APPENDECTOMY 05/2016 at [facility] 12/2022 retained placenta DISTAL [...] nursing note reviewed. Exam conducted with a wood patternmaker apprentice present. Vitals: Estimated body mass index is 29.41 kg/m as calculated from the following: Height as of 07/30/25: 5' 2 . Weight as of this encounter: 160 lb 12.8 oz. BP: 170/90 Patient's last menstrual period was 02/21/2025. ASSESSMENT & PLAN ICD-10-CM 1. 27 weeks gestation of ([facility]) Z3A.27 POCT urinalysis dipstick manually resulted 2. Second trimester ([facility]) Z34.92 Documented by Steph Keane NP on behalf of: Steph Keane NP documented in this encounterFreeman Heart InstitutePjbfdcanym76-81-9703 Miscellaneous Notes* Telephone Encounter - Cha Harris [...] to the sched to make that appt. documented [facility]10-07-2025 Telephone encounter Note* Telephone Encounter - [...] to the sched to make that appt. [facility]10-02-2025 History of Present illness Narrative* Steph Keane [...] San infection Headache History of menstrual cramps ([facility]) Varicella zoster Visual impairment HISTORY PAST MEDICAL HISTORY SOCIAL HISTORY Past Medical History: Diagnosis Date Amenorrhea d/t oral contraceptive pills Endometriosis John San infection Headache History of menstrual cramps severe Hypertension ([facility]) x1 Varicella zoster unsure Visual impairment w/ [...] History: Procedure Laterality Date APPENDECTOMY 05/2016 at [facility] 12/2022 retained placenta DISTAL [...] nursing note reviewed. Exam conducted with a wood patternmaker apprentice present. Vitals: Estimated body mass index is 29.23 kg/m as calculated from the following: Height as of 07/30/25: 5' 2 . Weight as of this encounter: 159 lb 12.8 oz. BP: (!) 158/92 Patient's last menstrual period was 02/21/2025. ASSESSMENT & PLAN ICD-10-CM 1. 26 weeks gestation of ([facility]) Z3A.26 POCT urinalysis dipstick manually resulted 2. Second trimester ([facility]) Z34.92 Return OB: Patient presents [...] labs and have her evaluated today at [facility]. I discussed with OB today and they are aware that patient is coming to be ev aluated. Orders Placed This Encounter Procedures POCT urinalysis dipstick manually resulted Follow Up: Patient is to return to office in 2 week for routine OB appointment. Documented by Steph Keane NP on behalf of: Steph Keane NP documented in this encounterFreeman Heart InstituteHjexdwebqn66-97-2914 Group counseling note* Group Note - Kerline [...] Face to face time was 80 minutes. [facility] HospitalCANDDi Work Phone: [phone] Miscellaneous Notes* Group Note - Kerline Augustin [...] time was 80 minutes. [address] [facility]09-17-2025 History of Present illness Narrative* Steph Keane [...] San infection Headache History of menstrual cramps ([facility]) Varicella zoster Visual impairment HISTORY PAST MEDICAL [...] History: Procedure Laterality Date APPENDECTOMY 05/2016 at [facility] 12/2022 retained placenta DISTAL [...] nursing note reviewed. Exam conducted with a wood patternmaker apprentice present. Vitals: Estimated body mass index is 27.82 kg/m as calculated from the following: Height as of 07/30/25: 5' 2 . Weight as of this encounter: 152 lb 1.9 oz. BP: 138/82 Patient's last menstrual period was 02/21/2025. ASSESSMENT & PLAN ICD-10-CM 1. 24 weeks gestation of ([facility]) Z3A.24 POCT urinalysis dipstick manually resulted 2. Second trimester ([facility]) Z34.92 POCT urinalysis dipstick manually [...] on Labetalol 100mg BID. Will refer to [facility] for evaluation. Patient deniesany Headache or blurred vision. Documented by Steph Keane NP on behalf of: Nathan Pop DO documented in this encounterFreeman Heart InstituteWtawtltbar35-51-7801 History of Present illness Narrative* Eliceo Beltran [...] infection Headache History of menstrual cramps Hypertension ([facility]) Varicella zoster Visual impairment Objective ?Quick Links [...] Orders: Lipid panel; Future documented in this encounterFreeman Heart InstituteVycxupaucf47-00-1010 History of Present illness Narrative* Christine Ravi, CLINICAL NURSE LEADER - 07/15/2025 3:30 PM EDT Reason for [...] Date Amenorrhea d/t oral contraceptive pills John Asn infection Headache History of menstrual cramps ([facility]) Varicella zoster Visual impairment HISTORY PAST MEDICAL [...] History: Procedure Laterality Date APPENDECTOMY 05/2016 at [facility] 12/2022 retained placenta DISTAL [...] nursing note reviewed. Exam conducted with a wood patternmaker apprentice present. Vitals: Estimated body mass index is 26.48 kg/m as calculated from the following: Height as of 12/30/24: 5' 2 . Weight as of this encounter: 144 lb 12.8 oz. BP: 120/80 Patient's last menstrual period was 02/21/2025. ASSESSMENT & PLAN ICD-10-CM 1. 20 weeks gestation of ([facility]) Z3A.20 POCT urinalysis dipstick manually resulted 2. Second trimester ([facility]) Z34.92 POCT urinalysis dipstick manually resulted [...] of: Nathan Pop DO documented in this encounterFreeman Heart InstituteGgcidfwgam32-23-4160 History of Present illness Narrative* Steph Keane, DEVYN - 06/22/2025 2:10 PM EDT Reason for [...] San infection Headache History of menstrual cramps ([facility]) Varicella zoster Visual impairment HISTORY PAST MEDICAL HISTORY SOCIAL HISTORY Past Medical History: Diagnosis Date Amenorrhea d/t oral contraceptive pills Endometriosis John San infection Headache History of menstrual cramps severe Hypertension ([facility]) x1 Varicella zoster unsure Visual impairment w/ [...] History: Procedure Laterality Date APPENDECTOMY 05/2016 at [facility] 12/2022 retained placenta DISTAL [...] nursing note reviewed. Exam conducted with a wood patternmaker apprentice present. Vitals: Estimated body mass index is 26.73 kg/m as calculated from the following: Height as of 25: 5' 2 . Weight as of this encounter: 146 lb 1.9 oz. BP: 118/74 Patient's last menstrual period was 02/21/2025. ASSESSMENT & PLAN (Z34.92) Second trimester ([facility]) Plan: POCT urinalysis dipstick manually resulted, Alpha fetoprotein, maternal, Alpha fetoprotein, maternal (Z3A.17) 17 weeks gestation of ([facility]) Plan: POCT urinalysis dipstick manually resulted, Alpha fetoprotein, maternal, Alpha fetoprotein, maternal (Z36.89) Screening, , for anatomic survey ([facility] [facility] Plan: US OB 14+ weeks anatomy [...] of: Nathan Pop DO documented in this encounterFreeman Heart [id number] History of Present illness Narrative* Steph Keane [...] History: Procedure Laterality Date APPENDECTOMY 05/2016 at [facility] 12/2022 retained placenta DISTAL [...] nursing note reviewed. Exam conducted with a wood patternmaker apprentice present. Vitals: Estimated body mass index is 25.24 kg/m as calculated from the following: Height as of 12/30/24: 5' 2 . Weight as of this encounter: 138 lb. BP: 122/80 Patient's last menstrual period was 02/21/2025. ASSESSMENT & PLAN ICD-10-CM 1. Second trimester ([facility]) Z34.92 POCT urinalysis dipstick manually resulted 2. 13 weeks gestation of ([facility]) Z3A.13 Return OB: Patient presents today [...] of: Nathan Pop DO documented in this encounterFreeman Heart [id number] History of Present illness Narrative* Hina Go [...] Dysmenorrhea 03/29/2023 Endometriosis 03/29/2023 Gastroparesis 03/29/2023 Hypertension ([facility]/HCC) 03/29/2023 Intractable migraine without aura and with status migrainosus ([facility]/HCC) 03/29/2023 Migraines (CMS/HCC) 03/29/2023 Chronic pelvic pain in female 03/29/2023 Pain in female genitalia on intercourse 03/29/2023 Pain on swallowing 03/29/2023 Panic disorder ([facility]/HCC) 03/29/2023 Patellofemoral disorders, left knee 03/29/2023 Patellofemoral disorders, right knee 03/29/2023 Posterior calcaneal exostosis 03/29/2023 Scapular dyskinesis 03/29/2023 Scoliosis 03/29/2023 Seasonal allergic rhinitis due to pollen 03/29/2023 Tachycardia, paroxysmal ([facility]) 03/29/2023 Tension headache 03/29/2023 Vitamin [...] History: Procedure Laterality Date APPENDECTOMY 05/2016 at [facility] 12/2022 retained placenta DISTAL [...] or undercooked meat, and stay away from [facility]. Patient has also been advised to [...] by: Hina Go LPN documented in this encounterFreeman Heart [id number] History of Present illness Narrative* Candis Yanes LPN - 01/19/2025 2:50 PM EST Reason for Appointment: Patient ID: Juhi Gama is a 29 y.o. female who presents for Painful Lajas Patient presents today for Consult appointment. MEDICATIONS Current Outpatient Medications Medication Instructions iitvwddqkj-vkkdkruqmjwjv-yzktczsz 50-325-40 MG tablet 1 tablet, Oral, Every [...] History: Procedure Laterality Date APPENDECTOMY 05/2016 at [facility] 12/2022 retained placenta DISTAL [...] nursing note reviewed. Exam conducted with a wood patternmaker apprentice present. Vitals: Estimated body mass index [...] patient and patient given direct extension to Hand Glove Cleaner for any questions/concerns pertaining to fertility. Documented by Candis Yanes LPN on behalf of: Nathan Pop DO documented in this encounterFreeman Heart [id number] History of Present illness Narrative* Eliceo Beltran [...] History: Procedure Laterality Date APPENDECTOMY 05/2016 at [facility] 12/2022 retained placenta DISTAL [...] min Stress: No Stress Concern Present (12/29/2024) [employer] [place] [facility] [employer] - Occupational Stress Questionnaire Feeling of Stress : Only a little Social Connections: Unknown (12/29/2024) Social Connection and Isolation Panel [NHANES] Frequency of Communication with Friends and Family: More than three times a week Frequency of Social Gatherings with Friends and Family: Once a week Attends [employer] Services: Patient declined Active Member of Clubs [...] with the patient today. Current Outpatient Medications: qfpyjpnqyf-veqrkwcntvhtb-jnlytgrr 50-325-40 MG tablet, Take 1 tablet by mouth every 6 (six) hours if needed for headaches, Disp: 20 tablet, Rfl: 0 desogestrel-ethinyl estradiol (Apri) 0.15-30 MG-MCG tablet, Take 1 tablet by mouth Daily, Disp: 21 tablet, Rfl: 12 metoprolol succinate XL (Toprol-XL) 25 MG 24 hr tablet, Take 1 tablet by mouth daily, Disp: 90 tablet, Rfl: 1 documented in this encounterFreeman Heart [id number] History of Present illness Narrative* Virgen Steen LPN - 08/18/2024 11:00 AM EDT Reason for Appointment: Patient ID: Juhi Cope is a 29 y.o. female who presents for [facility] Visit Patient presents today for Annual Exam. MEDICATIONS Current Outpatient Medications Medication Instructions mtnnquzxrb-ycoywuptkmldm-ssulkbtb 50-325-40 MG tablet 1 tablet, Oral, Every [...] History: Procedure Laterality Date APPENDECTOMY 05/2016 at [facility] 12/2022 retained placenta DISTAL [...] nursing note reviewed. Exam conducted with a wood patternmaker apprentice present. Vitals: Estimated body mass index [...] of: Zenobia Gutierrez PA-C documented in this encounterFreeman Heart [id number] History of Present illness Narrative* Christine Ravi LPN - 07/22/2024 9:50 AM EDT Reason for Appointment: Patient ID: Juhi Cope is a 29 y.o. female who presents for Dysmenorrhea Patient presents today for Acute Visit. MEDICATIONS Current Outpatient Medications Medication Instructions rtqqqafqvt-stqgchhyfkhif-cxrmkbhd 50-325-40 MG tablet 1 tablet, Oral, Every [...] Dysmenorrhea 03/29/2023 Endometriosis 03/29/2023 Gastroparesis 03/29/2023 Hypertension ([facility]/HCC) 03/29/2023 Intractable migraine without aura and with status migrainosus ([facility]) 03/29/2023 Migraines ([facility]) 03/29/2023 Chronic pelvic pain in female 03/29/2023 Pain in female genitalia on intercourse 03/29/2023 Pain on swallowing 03/29/2023 Panic disorder ([facility]/HCC) 03/29/2023 Patellofemoral disorders, left knee 03/29/2023 Patellofemoral disorders, right knee 03/29/2023 Posterior calcaneal exostosis 03/29/2023 Scapular dyskinesis 03/29/2023 Scoliosis 03/29/2023 Seasonal allergic rhinitis due to pollen 03/29/2023 Tachycardia, paroxysmal ([facility]) 03/29/2023 Tension headache 03/29/2023 Vitamin [...] History: Procedure Laterality Date APPENDECTOMY 05/2016 at [facility] 12/2022 retained placenta DISTAL [...] nursing note reviewed. Exam conducted with a wood patternmaker apprentice present. Vitals: Estimated body mass index [...] of: Nathan Pop DO documented in this encounterFreeman Heart [id number] Telephone encounter Note* Telephone Encounter - Candis Garces - 04/29/2024 8:23 AM EDT Received message from admin Anna Webb to cancel surgery and all appts as pt had services elsewhere [facility]06-04-2024 Miscellaneous Notes* Telephone Encounter - Candis Garces - 04/29/2024 8:23 AM EDT Received message from admin Anna Webb to cancel surgery and all appts as pt had services elsewhere documented in this encounterCh[facility]ic[facility]05[facility] Telephone encounter Note * Telephone Encounter - Anna De Leon - 04/25/2024 1:10 PM EDT Pt got in sooner for surgery with her local obstetrics gynecology md. Please cancel surgery and all pre and post op appts. [facility]05-31-2024 Miscellaneous Notes* Telephone Encounter - Anna De Leon - 04/25/2024 1:10 PM EDT Pt got in sooner for surgery with her local obstetrics gynecology md. Please cancel surgery and all pre and post op appts. documented in this encounterChillic[facility]02[facility] History of Present illness Narrative* Nathan [...] Dysmenorrhea 03/29/2023 Endometriosis 03/29/2023 Gastroparesis 03/29/2023 Hypertension ([facility]/HCC) 03/29/2023 Intractable migraine without aura and with status migrainosus ([facility]/HCC) 03/29/2023 Migraines (CMS/HCC) 03/29/2023 Chronic pelvic pain [...] History: Procedure Laterality Date APPENDECTOMY 05/2016 at [facility] 12/2022 retained placenta DISTAL CLAVICLE EXCISION Right 07/2018 Shoulder - open - DAP LAPAROSCOPY DIAGNOSTIC / BIOPSY / ASPIRATION / LYSIS 02/2019 endometriosis, 2020 SHOULDER SURGERY Right open distal clavicle excision-DAP [...] nursing note reviewed. Exam conducted with a wood patternmaker apprentice present. Vitals: Estimated body mass index [...] of: Nathan Pop DO documented in this encounterFreeman Heart InstituteUzkdzofrzk22-67-3905 Miscellaneous Notes* Telephone Encounter - KellyPippa blairDIALLO - 01/03/2024 4:29 PM EST Refill(s) request: [...] mg tablet Class: Normal Route: ORAL Order: [id number] E-Prescribing Status: Receipt confirmed by pharmacy (05/17/2023 [...] that may recur and often requires a retirement treatment plan. Once endometriosis is identified, there [...] Center 05/20/2024 10:00 AM [facility] Crenshaw [facility] 06/23/2024 10:30 AM Charlene Rodriguez DO [facility] Appointment scheduled: As listed above Action taken: Refill request routed to clinician Pippa Simon RN January 03, 2024 4:29 PM * Telephone Encounter - Alena Tracy - 01/02/2024 3:52 PM EST Patient: Juhi Cope : 1995 Provider: Charlene Rodriguez DO Caller Phone #: [phone] (home) [phone] (cell) Reason for call: b/c refill Message routed to nurse triage Date of next visit: MEGAN: 12/10/2023 documented in this encounterChillicothe Hospital01-15-2024 NoteHNO ID: [id number] Author: CHARLENE RODRIGUEZ DO Service: ? Author Type: Physician Type: Progress Notes Filed: 12/10/2023 15:14 Note Text: [facility] [place] SECTION FOR MINIMALLY INVASIVE GYNECOLOGIC SURGERY OUTPATIENT VISIT DATE 12/10/2023 OUTPATIENT VISIT TYPE Follow-up visit PRIMARY CARE PHYSICIAN: Denny Rodríguez [address] [place] [address] REFERRING PHYSICIAN: Self CHIEF COMPLAINT: No chief [...] MRI: no evidence of Past Gynecologic History: News Broadcaster History LMP: 07/08/2023 (Exact Date), Having periods Age at Menarche: 14 Age at First : 27 Age at Menopause: News Broadcaster History Comments: Sexual Activity: Never; No partner [...] presents today with pelvic (more content not included)...[facility]10-18-2023 Hospital Discharge instructions Patient Education 09/12/2023 [...] Follow these instructions at home: Medicines Take jjza-shf-hiziacv and prescription medicines only as told by [...] buy a blood pressure monitor at most [employer] or online. Where to find more information [place] [employer] [employer]: www.heart.org Contact a health care [...] provider. Document Revised: 07/27/2022 Document Reviewed: 07/27/2022 [employer] Patient Education 2022 [employer]op[employer]. 09/12/2023 18:18:13 Hypertension, Adult, Dusb-fu-Dcud Hypertension, Adult Hypertension is another name for [...] doctor. Keep all follow-up visits. Medicines Take kldq-yay-hrqqwkq and prescription medicines only as told by [...] provider. Document Revised: 08/31/2022 Document Reviewed: 08/31/2022 [employer] Patient Education 2022 Dopios. 09/12/2023 18:18:13 General Headache Without Cause, Rpvl-fn-Cqrp General Headache Without Cause A headache is pain or discomfort you feel around the head or neck area. There are many causes and types of headaches. In some cases, the cause may not be found. Follow these instructions at home: Watch your condition for any changes. Let your doctor know about them. Take these steps to help with your condition: Managing pain Take tjww-meh-hkjkdns and prescription medicines only as told by [...] away. Call your local emergency services (911 inthe [place] Do not wait to see if [...] provider. Document Revised: 04/12/2022 Document Reviewed: 04/12/2022 Ana[employer] Patient Education 2022 Dopios. Follow Up Care 09/12/2023 17:21:57 With:DENNY RODRÍGUEZ Address: [address] [place] [id number] Business (1) When:09/15/2023 18:03:37 Comments:Follow-up with your primary care provider in 3 to 5 days. If symptoms worsen, do not improve, or new symptoms arise please report back to emergency department for further evaluation. [facility]10-18-2023 Evaluation + Plan noteExtracted from: [...] date 09/12/23 18:02:00 EDT, 09/12/23 18:02:00 EDT [facility]10-16-2023 Instructions* Patient Instructions* Jihan Downs APRN.CNP - 09/10/2023 9:52 AM EDT Plan: Trial baclofen suppositories - can switch to pill vaginally if suppositories are not affordable Consider Pelvic floor physical therapy - can find local provider [email or web address] Consider going back to see Dr Kuldip Downs APRN.EXTERNAL RELATIONS MANAGER documented in this encounterChillic[facility]10-[facility]-2023 NoteHNO ID: [id number] Author: Charlene Rodriguez DO Service: ? Author Type: Physician Type: Progress Notes Filed: 08/30/2023 11:15 AM Note Text: Tramadol rx sent to pharmacy.[facility]10-05-2023 History of Present illness Narrative* Charlene Rodriguez DO - 08/30/2023 11:13 AM EDT Tramadol rx sent to pharmacy. documented in this encounterChillic[facility]10-[facility]-2023 Miscellaneous Notes* Telephone Encounter - Chelsie Dueñas RN - 08/30/2023 10:50 AM EDT Last office visit: 08/24/2023 Assessment and Plan No diagnosis found. Trial baclofen suppositories Will send list of PTs Consider going back to Kuldip SIGNATURE: Jihan Reaper, WELDING INSTRUCTOR.EXTERNAL RELATIONS MANAGER Office visit with Dr. Rodriguez 07/16/2023 [...] plan. Charlene Rodriguez DO documented in this encounterChillic[facility]09-29-2023 NoteHNO ID: [id number] Author: Jihan Downs APRN.ANA LAURA Service: ? Author Type: Nurse Practitioner Type: Progress Notes Filed: 09/10/2023 9:53 AM Note Text: [facility] [place] Department of Benign Gynecology [facility] PATIENT NAME: Jhui Cope DATE: 08/24/2023 Patient Name and verified: Yes Patient Location: [place] This Virtual Visit was completed using My Chart Zoom platform. I have communicated my name and active licensure. The patient's identity and physical location were verified at the time of this visit. Either the patient or their legal printing supplies sales representative has been informed of the [...] appointment yet. GI - constipation is improved Lajas - hasn't tried due to pain and [...] physical therapy - or can go locally [facility] Trial flexeril at bedtime Can consider Baclofen suppositories Continue Norethindrone - can take up to 3 months for it to stop periods, take at same time every day Relaxation techniques Jihan Downs APRN.EXTERNAL RELATIONS MANAGER OB History T0 L1 SAB0 IAB0 Ectopic0 Multiple0 Live Births0 News Broadcaster History LMP: 07/08/2023 (Exact Date), Having periods Age at Menarche: 14 Age at First : 27 Age at Menopause: News Broadcaster History Comments: Sexual Activity: Never; No partner [...] toxic appearing HEENT nor (more content not included)...[facility]09-29-2023 History of Present illness Narrative* Jihan Downs APRN.EXTERNAL RELATIONS MANAGER - 08/24/2023 9:24 AM EDT Images from the original note were not included. [facility] [place] Department of Benign Gynecology [facility] PATIENT NAME: Juhi Cope DATE: 08/24/2023 Patient Name and verified: Yes Patient Location: [place] This Virtual Visit was completed using My Chart Zoom platform. I have communicated my name and active licensure. The patient's identity and physical location wereverified at the time of this visit. Either the patient or their legal printing supplies sales representative has been informed of the [...] appointment yet. GI - constipation is improved Lajas - hasn't tried due to pain and [...] physical therapy - or can go locally [facility] Trial flexeril at bedtime Can consider Baclofen suppositories Continue Norethindrone - can take up to 3 months for it to stop periods, take at same time every day Relaxation techniques Jihan Downs APRN.EXTERNAL RELATIONS MANAGER OB History T0 L1 SAB0 IAB0 Ectopic0 Multiple0 Live Births0 News Broadcaster History LMP: 07/08/2023 (Exact Date), Having periods Age at Menarche: 14 Age at First : 27 Age at Menopause: News Broadcaster History Comments: Sexual Activity: Never; No partner [...] Level: 3 - Low documented in this encounterKyle Ville [address]-22-2023 Miscellaneous Notes* Telephone Encounter - Marilee Valdez [...] Provider: Charlene Rodriguez DO Caller Phone #: [phone] (home) [phone] (cell) Reason for call: pt calling regarding mc message., still in pain. Please call [phone] Message routed to nurse triage Date of next visit: documented in this encounterChillicothe Hospital09-07-2023 Miscellaneous Notes* Telephone Encounter - Candis Suárez RN - 08/02/2023 11:29 AM EDT PA for orilissa completed via Cover MyMeds. Juhi Cope (Morales: [id number]) - [id number] Orilissa 150MG tablets Status: Sent To Plan [...] too. Please advise. Thanks. documented in this encounterChillic[facility]08-21-2023 NoteHNO ID: [id number] Author: Charlene Rodriguez DO Service: ? Author Type: Physician Type: Progress Notes Filed: 07/16/2023 12:41 PM Note Text: [facility] [place] SECTION FOR MINIMALLY INVASIVE GYNECOLOGIC SURGERY OUTPATIENT VISIT DATE 07/16/2023 OUTPATIENT VISIT TYPE Follow-up visit PRIMARY CARE PHYSICIAN: Denny Rodríguez [address] [place] [address] REFERRING PHYSICIAN: Denny Rodríguez CHIEF COMPLAINT: No [...] additional bowel lesions identified Past Gynecologic History: News Broadcaster History LMP: 07/08/2023 (Exact Date), Having periods Age at Menarche: 14 Age at First : 27 Age at Menopause: News Broadcaster History Comments: Sexual Activity: Never; No partner [...] Signs: 07/16/23 1115 BP: (more content not included)...[facility] [id number] History of Present illness Narrative* Boo Singh [...] 12, 2023 4:32 PM documented in this encounterChillicothe Hospital07-18-2023 NoteHNO ID: [id number] Author: Rosio Malcolm RT(R) Service: ? Author Type: Field Secretary Type: Progress Notes Filed: 06/12/2023 4:32 PM [...] BY: ZELALEM Taylor) June 12, 2023 4:32 [facility]07-18-2023 NoteHNO ID: [id number] Author: Boo Singh RN Service: Nursing Author [...] TIME: 1:43 [facility]06-22-2023 NoteHNO ID: [id number] Author: Charlene Rodriguez, DO Service: ? Author Type: Physician Type: Progress Notes Filed: 05/21/2023 10:15 AM Note Text: [facility] [place] SECTION FOR MINIMALLY INVASIVE GYNECOLOGIC SURGERY OUTPATIENT VISIT DATE 05/17/2023 OUTPATIENT VISIT TYPE FUV - zoom virtual visit CHIEF COMPLAINT: Endometriosis, pelvic pain HISTORY OF PRESENT ILLNESS: Juhi Cpoe is a pleasant 28 year old female who presents for follow up visit. Cramping, back pain Endo pain Flare: 04/22 - 04/29 Pain was really bad Bleeding was light 05/04 - 05/09 Pelvic floor PT - went to appointment last week Past Gynecologic History: News Broadcaster History LMP: 04/22/2023 (Exact Date), Having periods Age at Menarche: 14 Age at First : 27 Age at Menopause: News Broadcaster History Comments: Sexual Activity: Never; No partner [...] treatment plan. Charlene Rodriguez DO Tt: [facility] minutesKn[facility]06-[facility]-2023 History of Present illness Narrative* Charlene Rodriguez DO - 05/17/2023 1:05 PM EDT Images from the original note were not included. [facility] [place] SECTION FOR MINIMALLY INVASIVE GYNECOLOGIC SURGERY OUTPATIENT [...] to appointment last week Past Gynecologic History: News Broadcaster History LMP: 04/22/2023 (Exact Date), Having periods Age at Menarche: 14 Age at First : 27 Age at Menopause: News Broadcaster History Comments: Sexual Activity: Never; No partner [...] DO Tt: 20 minutes documented in this encounterChillicothe Hospital06-16-2023 Miscellaneous Notes* Telephone Encounter - Candis Suárez RN - 05/11/2023 4:19 PM EDT Reports vaginal bleeding, using panty liners, changing a few times a day, not severe. Biggest complaint is cramping. Has had 3 periods of bleeding recently - 04/22/2023 LMP, last a few days, 05/04-05/10 bleeding again 05/11/2023 started again today. Takes aygestin 5mg daily. She did not crab picker flexeril. Encourage to crab picker the flexeril as this will help with the cramping. Reviewed red flag bleeding symptoms that require trip to ER (soaking greater than one overnight padper hour, chest pain, shortness of breath, fatigue, palpitations).. Advised keep appt. Gives verbal understanding. Appointments for Next 60 Days Date Time Provider Location Dept Phone 05/17/2023 1:00 PM CHARLENE RODRIGUEZ [facility] [phone] Candis Suárez RN * Telephone Encounter - Tawana Nair [facility] - 05/11/2023 1:19 PM EDT Reason for call: other - Vaginal bleeding Provider name: Dr Rodriguez Additional comments: patient having more vaginal bleeding and concerned she is getting worse. Recommendation: routed to nurse triage pool documented in this encounterChillicothe Hospital06-06-2023 Instructions* Patient Instructions* Jihan Downs APRN.EXTERNAL RELATIONS MANAGER - 05/01/2023 11:47 AM EDT Plan Pelvic floor physical therapy - or can go locally [employer] Trial flexeril at bedtime Can consider Baclofen suppositories - let me know if you want to trial after you go to PT Continue Norethindrone - can take up to 3 months for it to stop periods, take at same time every day Relaxation techniques Jihan Downs APRN.EXTERNAL RELATIONS MANAGER Relaxation techniques for pain flares: Heating pads [...] pelvic pain society (pelvicpain.org) documented in this encounterChillicothe Hospital06-06-2023 History of Present illness Narrative* Jihan Downs APRN.ANA LAURA - 05/01/2023 10:30 AM EDT Juhi Cope is a 28 year old female who presents for problem visit for pain HPI: Pain is week before period and week of period. Worse on her period for every day she's bleeding Urinary - No symptoms GI - Always constipated. No meds Lajas - painful always Pain is on left [...] L0 SAB0 IAB0 Ectopic0 Multiple0 Live Births0 News Broadcaster History LMP: 03/26/2023 (Approximate), Having periods Age at Menarche: Age at First : Age at Menopause: News Broadcaster History Comments: Sexual Activity: Never; No partner [...] physical therapy - or can go locally [employer] Trial flexeril at bedtime Can consider Baclofen [...] Level: 4 - Moderate documented in this encounterChillicothe Hospital06-06-2023 NoteHNO ID: [id number] Author: Jihan Downs APRN.CNP Service: ? Author Type: Nurse Practitioner Type: Progress Notes Filed: 05/09/2023 11:46 AM Note Text: Juhi Cope is a 28 year old female who presents for problem visit for pain HPI: Pain is week before period and week of period. Worse on her period for every day she's bleeding Urinary - No symptoms GI - Always constipated. No meds Lajas - painful always Pain is on left [...] L0 SAB0 IAB0 Ectopic0 Multiple0 Live Births0 News Broadcaster History LMP: 03/26/2023 (Approximate), Having periods Age at Menarche: Age at First : Age at Menopause: News Broadcaster History Comments: Sexual Activity: Never; No partner [...] physical therapy - or can go locally [employer] Trial flexeril at bedtime Can consider Baclofen [...] management Medical Decision Making Level: 4 - [facility] Miscellaneous Notes* Telephone Encounter - Marilee [...] months. Lucila Foss RN documented in this encounterChillicothe [facility]03-08-2023 Hospital Discharge instructions Patient Education 01/31/2023 [...] told by your health care provider. Take iljt-zrg-ojtwpjl and prescription medicines only as told by [...] 01/03/2007 Document Revised: 10/25/2018 Document Reviewed: 01/25/2018 [employer] Patient Education 2020 [employer]ios. Follow Up Care 01/31/2023 13:43:01 With:Denny Meza Address:Unknown When:02/03/2023 18:59:31 Comments:Follow-up for evaluation of hypertension in context of known preeclampsia in the period With:DENNY RODRÍGUEZ [facility] [place] [address] Business (1) When:Within 3 Day(s) [facility]03-08-2023 Evaluation + Plan noteExtracted from: Title:ED NoteAuthor:Mayur Mabry PA-C CDate:01/31/23 Flank pain (R10.9: Unspecifi ed abdominal pain) Headache (R51.9: Headache, unspecified) Orders: CTA Chest Hepatic Function Panel [facility]02-04-2023 Hospital Discharge instructions Patient Education 12/30/2022 13:59:51 VIDEO POKER FLOORMAN - Post D&C, Hysteroscopy, LEEP or Essure/Laparoscopy [...] Instructions - FT (Custom) (Custom) 12/30/2022 13:55:16 VIDEO POKER FLOORMAN - Post D&C, Hysteroscopy, LEEP or Essure/Laparoscopy [...] With:Denny Meza Address: [address], [address] [address]- Business (1) When: Unknown Comments:follow up in 1-2 weeks With:DENNY RODRÍGUEZ Address: [address] [place] [address]- Business (1) When:01/02/2023 09:21:18 [facility]02-04-2023 Evaluation + Plan noteExtracted from: [...] from:Title:ANES Pre-operative NoteAuthor:Kenneth Agustin MDDate: 12/30/22 Plan [place] [employer] Anesthesiologists (ASA) physical status classification: [...] With Cult Reflex US Pelvis Non-OB Complete [facility]01-10-2023 History of Present illness Narrative* Tory Pimentel - 12/05/2022 1:35 PM EST Vital signs BP 127/87 Weight 149.2lb Pulse 106 Temp 96.7 * Paolo Diallo DO - 12/05/2022 1:35 PM EST Images from the original note were not included. Juhi Stephensifeoma 12/05/2022 27 y.o. Chief Complaint Patient presents [...] Ross MD - 12/05/2022 3:19 PM EST [facility]: This patient was seen in the [facility] by the resident. I reviewed and agree with the care provided by the resident during or immediately following the visit including the patient's medical history, the resident's finding in the physical exam, patient's diagnosis and treatment plan. documented in this [facility]01-07-2023 [facility] Discharge Summary Admission on 11/28/2022 12:24 AM Hospital course: Juhi Cope at 35w1d admitted as a transfer from [facility] for [facility]. She was started on Magnesium there [...] Information for the patient's : Francie Cope [[id number]] female 2425 g (5 lb 5.5 oz) Apgars: Information for the patient's : Francie Cope [[id number]] : Infant: Girl Blood Type/Rh: O Antibody [...] Medications These medications were sent to [facility] [address] [place], [place] [id number] Hours: Sunday to Sunday 10 am to 6 pm docusate sodium 100 MG capsule ibuprofen 600 MG tablet NIFEdipine XL 30 MG 24 hr tablet Activity: Activity as tolerated Diet: Regular diet Follow-up Appointments: - visit - Blood pressure check If a patient meets criteria for hypertension, make sure the following are done prior to discharge: [] Order a blood pressure kit through [facility] (or the patient's own pharmacy on the weekend) [] Order the blood pressure log through [facility] [x] Place an office visit or telephone [...] if any of these occur.[facility] [id number] History of Present illness Narrative* Anna Booth [...] with more than 50% of the total heks-qr-qobw time of the visit in counseling/coordination of [...] be monitored and followed by the diet calibration technician. CRISS Oshea * Alejandra Arcos RN [...] and reassuring. CCM. Cx:/-3 FHT: Cat 1 [place]:q3-4 min A/P: 1. IOL-PreEwSF. FHT 130 baseline, with moderate variability, Accelerations present Yes, and rare late deceleration . Cervical exam unchanged. Cytotec x4 placed at this time. Patient intermittently feeling contractions. BP mild range. Cx: 1-/-3 FHP: defer FHT: Cat I [place]: a3-4min A/P: 1. IOL-PreEwSF: FHT Category I, with modertae variability, accelerations present, and decelerations absent. BP NT largely throughout today, most recently mild range. UOP has not been documented today, day nurse did not document. Discussed with night nurse. Magnesium running for seizure prophylaxis. 2nd dose of BMZ received. Dr Keita updated. PRINCE MANCUSOER, DO 11/28/2022 7:43 PM Cx: unchanged FHP: defer FHT: Cat I [place]: q4min A/P: 1. IOL-PreEwSF: FHT Category I, with moderate variability, accelerations present, and decelerations absent. Blood pressure mild. UOP adequate. Cytotec #6 placed at this time. Magnesium running for seizure prophylaxis. PRINCEJULIA BRADY, DO 11/29/2022 1:42 AM Cat I for past 4 hours. Cytotec time is up. Although discussed with Dr Keita patient will eat breakfast at this time. Plan for SVE after. PRINCE JOSE ANTONIO, 11/29/2022 6:17 AM Cx:1-2/60/-3 FHT: Cat I [place]:q4-5mins A/P: 1. IOL-PreEwSF: Cat I FHT with [...] per protocol. CCM. Cx:defer FHT: Cat I [place]:q4-6mins A/P: 1. IOL-PreEwSF: Cat I FHT with baseline 120, moderate variability, spontaneous accelerations, and no decelerations. BP normotensive to mild range since last note time. Pitocin @ 2 cc/hr, continue to titrate per protocol. Magnesium sulfate running for seizure prophylaxis, UOP 400 ml over past 4hours. CCM. Cx:defer FHT: Cat I [place]:q4-5mins A/P: 1. IOL-PreEwSF: Cat I FHT with baseline 135, moderate variability, spontaneous accelerations, and no decelerations. BP normotensive to mild range since last note time. Pitocin @ 6 cc/hr, continue to titrate per protocol. Magnesium sulfate running for seizure prophylaxis, UOP 600 ml over past 4hours. Will plan for AROM soon. CCM. Cx:defer FHT: Cat I [place]:irritability A/P: 1. IOL-PreEwSF: Pit @ 8 mu/min. Patient resting comfortably and only irritability tracing on toco. BP most recently mild range. On magnesium sulfate for seizure prophylaxis. UOP adequate. Continue magnesium and continue to titrate pitocin per protocol. Plan for AROM once patient rudi more regularly. Electronically signed by Cortney Velasquez DO 11/29/2022 4:21 PM Cx:/-3 FHT: Cat 1 [place]:Not tracing A/P: 1. IOL-PreEwSF. FHT 135 baseline, with moderate variability, Accelerations present Yes, and nodecelerations seen . AROM at this time for moderate amount blood tinged fluid. Pitocin at 8cc/hr. Maternal BP mild range. On Magnesium for Seizure prophylaxis. Patient with adequate urinary output. CCM. Cx: defer FHP: defer FHT: Cat II [place]: not tracing well A/P: 1. IOL-PreEwSF: FHT [...] per RN FHP: defer FHT: Cat II [place]: q4min A/P: 1. [facility]: FHT Category II for periods of minimal [...] delivery note for details documented in this [facility]01-07-2023 Hospital course Narrative* César Tran DO - 12/02/2022 12:32 PM EST Images from the original note were not included. Department of Obstetrics and Gynecology Delivery Discharge Summary Admission on 11/28/2022 12:24 AM Hospital course: Juhi Cope at 35w1d admitted as a transfer from [facility] for [facility]. She was startedon Magnesium there and [...] Information for the patient's : Francie Cope [[id number]] female 2425 g (5 lb 5.5 oz) Apgars: Information for the patient's : Francie Cope [[id number]] : : Girl Blood Type/Rh: O Antibody [...] Medications These medications were sent to [facility] [address] [place] [address] Hours: Sunday to Sunday 10 am to 6 pm docusate sodium 100 MG capsule ibuprofen 600 MG tablet NIFEdipine XL 30 MG 24 hr tablet Activity: Activity as tolerated Diet: Regular diet Follow-up Appointments: - visit - Blood pressure check If a patient meets criteria for hypertension, make sure the following are done prior to discharge: [] Order a blood pressure kit through [facility] (or the patient's own pharmacy on the weekend) [] Order the blood pressure log through [facility] [x] Place an office visit or telephone [...] any of these occur. documented in this [facility]01-06-2023 Note* Care Coordination - Christine [...] Denies any concerns at this time. [facility] [id number] Note* Care Coordination - Christine Michelle RN [...] Denies any concerns at this time. [facility] [id number] Miscellaneous Notes* Care Coordination - Christine Michelle [...] for this pt. Due to: infant in [facility] breast pump, [...] LC in SCN for smaller flange sizes * L&D Delivery Note - Irina Kramer DO - 11/30/2022 4:04 AM EST Images from the original note were not included. Vaginal Delivery Note Department of Obstetrics and Gynecology Patient: Juhi Cope : 1995 Date of delivery: 11/30/2022 Pre-operative Diagnosis: Juhi Mojica0 at 35w1d 1. <37 weeks 2. PreEwSF Post-operative Diagnosis: Live Born female Delivering Music Researcher & Senior Editor(s): Dr. Bowden; Dr. Kramer Information: Information for the patient's : Francie Cope [[id number]] Information for the patient's : Francie Cope [[id number]] Description: normal Meconium Noted: No Anesthesia: epidural [...] Immunity Status: No results found for: CAITY Kramer DO 11/30/2022, 4:04 AM Associated attestation - Carol Bowden MD - 12/01/2022 8:22 AM EST Procedures or Surgery: I was present for all morales elements of the procedure or surgery as described in the resident note. * Care Plan - Clotilde Mg RN - 11/29/2022 7:45 AM EST The patient will continue to make cervical change. Clotilde Mg RN documented in this [facility]01-06-2023 Obstetrics Note* Note - Ligia Bridges RN - 12/01/2022 9:00 AM EST 22.5mm flanges given to patient. Encouraged her to call for observation of pump session and smallerflanges. Martha in NICU to assist with personal pump. [facility] [id number] Hospital Discharge instructions* Discharge Instructions* Carol Bowden [...] as 8 weeks after delivery. Bleeding may crab picker and then decrease again around 7-10 [...] avoid constipation you may take a mild nnsm-ask-qexbzhl stool softener (such as colace) as recommended [...] positive or a Person Under Investigation (PUI) Hieuhz-et-mzzbt transmission of COVID-19 during is unlikely, but after a baby is susceptible to bcyruq-kw-cfcbuw spread. After your baby is born, your [...] clean your hands with an alcohol-based hand equine internship that contains at least 60% alcohol. Clean your hands often Wash your hands often with soap and water for at least 20 seconds, especially after blowing your nose, coughing, or sneezing; going to the bathroom; and before eating or preparing food. If soap and water are not readily available, use an alcohol-based hand equine internship with at least 60% alcohol, covering all [...] healthcare provider to call the local or [facility] health department. Persons who are placed [...] isolation precautions should be made on a juqf-bm-mijl basis, in consultation with healthcare providers and [facility] health [facility]. [...] respiratory tract signs and symptoms. Ways to [place] with Anxiety & Stress It is normal [...] an illness that was first found in [facility], in October 2019. It has since [...] seen in people before. This virus spreads kdjsvt-dd-qbowty through droplets from coughing and sneezing. It [...] water aren't available, use an alcohol-based hand equine internship. Call 911 anytime you think you may [...] of: February 25, 2020 Content Version: 12. [employer]. Care instructions adapted under license by your healthcare professional. If you have questions about a medical condition or this instruction, always ask your healthcare professional. [employer] disclaims any warranty or liability for your use of this information. General Recommendations for Routine Cleaning and Disinfection of Households Community members can practice routine cleaning of frequently touched surfaces (for example: tables, doorknobs, light switches, handles, desks, toilets, faucets, sinks) with household technical support internship and EPA-registered disinfectants that are appropriate for [...] appropriate. These supplies include tissues, paper towels, technical support internship and EPA-registered disinfectants (see list link at [...] be used for other purposes. Consult the hotbed lever operator's instructions for cleaning and disinfection products used. [...] used if appropriate for the surface. Follow hotbed lever operator's instructions for application and proper ventilation. Check [...] water Products with EPA-approved emerging viral pathogens [facility] iconexternal icon are expected to be effective against COVID-19 based on data for harder to kill viruses. Follow the hotbed lever operator's instructions for all cleaning and disinfection products (e.g., concentration, application method and contact time, etc.). Soft (porous) surfaces such as carpeted floor, rugs, and drapes Remove visible contamination if present and clean with appropriate technical support internship indicated for use on these surfaces. After cleaning: Launder items as appropriate in accordance with the hotbed lever operator's instructions. If possible, launder items using the [...] items as appropriate in accordance with the hotbed lever operator's instructions. If possible, launder items using the warmest appropriate water setting for the items and dry items completely. Dirty laundry from an ill person can be washed with other people's items. Clean and disinfect clothes hampers according to guidance above for surfaces. If possible, considerplacing a bagel maker that is either disposable (can be thrown away) or can be laundered. CDC has a list of EPA approved cleaning products on their website - https://www.cdc.gov/coronavirus/ 2019-ncov/community/home/cleaning-disinfection.html https://www.[employer]/Sjvhj-Jqvyhoswehn-Ymqdpusi-Products-List.pdf Grocery Stores with delivery and crab picker services: [employer]: Free crab picker at locations Delivery is $12.95 a month Website - [employer] [place]: Salesperson Furs $2.95 (1st order is free) Delivery is $14.95 Website - [employer]: solar installation supervisor is free Delivery is $5.95 [employer]: solar installation supervisor is $4.95 Delivery is $9.95 Website [employer]: solar installation supervisor is $4.95 Delivery is $9.95 Website [employer]: Can be ordered for delivery and crab picker with [employer] Website - www.[employer]: Free deliver for first 3 orders of $35 or more Website - [employer] Will deliver from [employer], [employer], [employer], and [employer]. Annual membership is $99 Monthly membership is $14 * Attachments The following attachments cannot be sent through Care Everywhere. * Preeclampsia Discharge Instructions (Tanzanian) documented in this [facility]01-05-2023 Obstetrics Note* Note - Sheila Harrell RN - 11/30/2022 10:37 AM EST Swabs given to patient and educated how to use and to bring to infant CRISTIAN [facility] [id number] Obstetrics Note* Note - Sheila Harrell RN [...] [facility] for smaller flange sizes [facility] [id number] NotePatient: Juhi Cope Procedure Summary Date: 11/29/22 Room / Location: Anesthesia Start: 1814 Anesthesia Stop: 11/30/22247 Procedure: Labor Analgesia Diagnosis: Scheduled Providers: Responsible Provider: Denny Fung MD Anesthesia Type: epidural ASA Status: 3 Anesthesia Type: epidural Vitals Value Taken Time BP 133/89 11/30/22 0345 Temp 37.1 11/30/22 0354 Pulse 103 01/05/23 0345 Resp 17 11/30/22 0354 SpO2 99 [...] all PACU criteria has been met.[facility]01-05-2023 NotePatient: Juhi Cope Procedure Summary Date: [...] for questions and acknowledgement of understanding.[facility]01-05-2023 Labor and delivery summary note* L&D Delivery Note - Irina Kramer DO - 11/30/2022 4:04 AM EST Images from the original note were not included. Vaginal Delivery Note Department of Obstetrics and Gynecology Patient: Juhi Cope : 1995 Date of delivery: 11/30/2022 Pre-operative Diagnosis: Juhi Mojica0 at 35w1d 1. <37 weeks 2. PreEwSF Post-operative Diagnosis: Live Born female Delivering Music Researcher & Senior Editor(s): Dr. Bowden; Dr. Kraemr Information: Information for the patient's : Francie Cope [[id number]] Information for the patient's : Francie Cope [[id number]] Description: normal Meconium Noted: No Anesthesia: epidural [...] surgery as described in the resident note. [facility] [id number] NoteEpidural Block Time Out: 11/29/2022 6:17 PM Patient location during procedure: OB Start time: 11/29/2022 6:18 PM End time: 11/29/2022 6:45 PM Reason for block: labor analgesia Staffing Performed: FOOT WORKER Resident/FOOT WORKER: Jimmie Kaur APRN - JASMYN Preanesthetic Checklist [...] procedure well with no immediate complicationsMcLaren Bay [facility] Hospital01-04-2023 Plan of care note* Care Plan - Clotilde Mg RN - 11/29/2022 7:45 AM EST The patient will continue to make cervical change. Clotilde Mg RN [facility] [id number] NotePatient: Juhi Cope Procedure Information Date: 11/28/22 [...] products. patient is not NPO Additional Equipment RequestsMcLaren Bay Special Care Hospital01-03-2023 NoteLabor Progress Note Date: 11/28/2022 Time: 2:14 AM Subjective: Juhi Cope is a 27 y.o. female at 34w6d admitted for PreEwSF Complications: PreEwSF - 20 labetalol, 30 procardia daily SVE on admission: closed GBS: []Pos []Neg [x]Unknown; collected on admisison Cytotec placed at this time. Cat IKaren BRADY, 11/28/2022 2:15 AM 2.d cytotec placed at this time. Cervix unchanged. FHT cat II for periods of minimal variability. Pt resting comfortably in bed. Per Dr. Tran, continue cytotec and defer FB until 2 cm. Cytotec x3 placed at this time. FHT cat I and reassuring. CCM. Cx:/-3 FHT: Cat 1 [place]:q3-4 min A/P: 1. IOL-PreEwSF. FHT 130 baseline, with moderate variability, Accelerations present Yes, and rare late deceleration . Cervical exam unchanged. Cytotec x4 placed at this time. Patient intermittently feeling contractions. BP mild range. Cx: 1-/-3 FHP: defer FHT: Cat I [place]: a3-4min A/P: 1. IOL-PreEwSF: FHT Category I, with modertae variability, accelerations present, and decelerations absent. BP NT largely throughout today, most recently mild range. UOP has not been documented today, day nurse did not document. Discussed with night nurse. Magnesium running for seizure prophylaxis. 2nd dose of BMZ received. Dr Kieta updated. PRINCE BRADY DO 11/28/2022 7:43 PM Cx: unchanged FHP: defer FHT: Cat I [place]: q4min A/P: 1. IOL-PreEwSF: FHT Category I, [...] 11/29/2022 6:17 AM Cx:1-/-3 FHT: Cat I [place]:q4-5mins A/P: 1. IOL-PreEwSF: Cat I FHT with [...] per protocol. CCM. Cx:defer FHT: Cat I [place]:q4-6mins A/P: 1. IOL-PreEwSF: Cat I FHT with baseline 120, moderate variability, spontaneous accelerations, and no decelerations. BP normotensive to mild range since last note time. Pitocin @ 2 cc/hr, continue to titrate per protocol. Magnesium sulfate running for seizure prophylaxis, UOP 400 ml over past 4 hours. CCM. Cx:defer FHT: Cat I [place]:q4-5mins A/P: 1. IOL-PreEwSF: Cat I FHT with baseline 135, moderate variability, spontaneous accelerations, and no decelerations. BP normotensive to mild range since last note time. Pitocin @ 6 cc/hr, continue to titrate per protocol. Magnesium sulfate running for seizure prophylaxis, UOP 600 ml over past 4 hours. Will plan for AROM soon. CCM. Cx:defer FHT: Cat I [place]:irritability A/P: 1. IOL-PreEwSF: Pit @ 8 mu/min. Patient resting comfortably and only irritability tracing on toco. BP most recently mild range. On magnesium sulfate for seizure prophylaxis. UOP adequate. Continue magnesium and continue to titrate pitocin per protocol. Plan for AROM once patient rudi more regularly. Electronically signed by Cortney Velasquez DO 11/29/2022 4:21 PM Cx:/-3 FHT: Cat 1 [place]:Not tracing A/P: 1. IOL-PreEwSF. FHT 135 baseline, with moderate variability, Accelerations present Yes, and no decelerations seen . AROM at this time for moderate amount blood tinged fluid. Pitocin at 8cc/hr. Maternal BP mild range. On Magnesium for Seizure prophylaxis. Patient with adequate urinary output. CCM. Cx: defer FHP: defer FHT: Cat II [place]: not tracing well A/P: 1. IOL-PreEwSF: FHT Category II for brief period of lates vs early deceleration (more content not included)...[facility]01-03-2023 NoteObstetrical History and Physical CHIEF COMPLAINT: [...] 34w6d Is this patient being delivered between 12d4q-96m4g weeks with an acceptable medical indication (obstetric, maternal, and/or )? NA: Not Applicable: This patient is being delivered outside of the PC-01 range (42o0t-73u5i) for reasons indicated in the medical record. [...] Not Indicated (more content not included)...[facility]01-03-2023 History and physical note* Cassie Constantino [...] 34w6d Is this patient being delivered between 46i3m-86e2s weeks with an acceptable medical indication (obstetric, maternal, and/or )? NA: Not Applicable: This patient is being delivered outside of the -01 range (79b7i-50q4h) for reasons indicated in the medical record. [...] Housing Stability: Not on file [facility] Medications Prior to Admission: No medications prior [...] plan. Cassie Constantino MD 11/28/2022, 12:48 AM [facility] HospitalRrinmn11-16-3423 History and physical note* Cassie Constantino MD [...] 34w6d Is this patient being delivered between 23x5b-09e9w weeks with an acceptable medical indication (obstetric, maternal, and/or )? NA: Not Applicable: This patient is being delivered outside of the PC-01 range (38k0u-61c6n) for reasons indicated in the medical record. [...] MD 11/28/2022, 12:48 AM documented in this [facility]01-02-2023 Evaluation + Plan note Extracted from:Title:OB High Risk Antepartum Visit *Author:Fredi DORSEY MD Date:11/27/22 Impression and Plan Diagnosis 34 weeks 5 days. Preeclampsia. contractions. Maternal tachycardia.. Course: Worsening, New onset headache may be a signal of worsening symptoms of preeclampsia.. Orders I discussed this case with the maternal- medicine department at [facility] in [facility], Dr. Thea Nieves, she accepted to transfer due to preeclampsia. 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 She is provided with a note for work. Additional diagnosis: Constipation, UTI and [facility]08-19-2022 Hospital Discharge instructions Follow Up Care 07/14/2022 06:07:36 With:Denny Meza Address:Unknown When:07/17/2022 07:24:48 With:DENNY RODRÍGUEZ Address: [address] [place] [address]- Business (1) When:Within 3 Day(s) [facility]08-19-2022 Hospital Discharge instructions Follow Up Care 07/14/2022 04:40:16 With:Denny Meza Address: [address], [address] [place] [address]- Business (1) When:07/17/2022 Comments:Appointment has already been scheduledCall Dr if fever>100.5 F, heavy bleedingCall for any problems.Call for severe abdominal painCall physician for heavy vaginal bleedingCall physician if symptoms worsenPlease call if you need to rescheduleReturn for contractions closer, longer, harderReturn ifruptured membranes or vaginal bleeding [facility]05-31-2022 Evaluation + Plan note Diagnostic Tests Pending * Cracu-0-Mqjfzgocnfz 04/25/22 * NIGEL w/Reflex if POS 04/25/22 * Ceruloplasmin 04/25/22 * HCV Antibody RFX to Quant PCR 04/25/22 * HBV Core Ab 04/25/22 * Hepatitis B Surface Antibody 04/25/22 * Hepatitis B Surface Antigen 04/25/22 * Smooth Muscle Antibody Screen 04/25/22 [facility] [facility]05[facility]24[facility] Evaluation note* Encounter Date Diagnosis Assessment Notes Treatment Notes Treatment Clinical Notes March, Elevated liver function tests (I CD-10 - R79.89) LABS INDICATED ABOVE FIBROSCAN Dexcom Other Evaluation note* Diagnosis Pelvic pain in female- Primary Unspecified symptom associated with female genital organs [facility] Diagnosis Chronic pelvic pain in female- Primary Unspecified symptom associated with female genital organs Constipation, unspecified constipation type High-tone pelvic floor dysfunction Other specified disorders of female genital organs Diastasis of rectus abdominis Dysmenorrhea Other specified dyspareunia [facility] Diagnosis Endometriosis- Primary Endometriosis, site unspecified Pelvic and perineal pain Unspecified symptom associated with female genital organs [facility] Diagnosis Pelvic pain in female- Primary Unspecified symptom associated with female genital organs [facility] Diagnosis Pelvic pain in female- Primary Unspecified symptom associated with female genital organs [facility] Diagnosis High-tone pelvic floor dysfunction- Primary Other specified disorders of female genital organs Chronic pelvic pain in female Unspecified symptom associated with female genital organs [facility] Diagnosis Pelvic and perineal pain Unspecified symptom associated with female genital organs [facility] Diagnosis Menorrhagia with regular cycle Pelvic pain in female Unspecified symptom associated with female genital organs Uses control documented in this encounter [facility] HealthcareEvaluation note* Diagnosis Preeclampsia, severe, third trimester- Primary Preeclampsia, severe, third trimester [facility] Pre-eclampsia, severe, delivered- Primary [facility] Diagnosis Dysmenorrhea, unspecified documented in this encounter [facility] HealthcareEvaluation note* Diagnosis Well woman exam with routine gynecological exam Routine gynecological examination documented in this encounter [facility] HealthcareEvaluation note* Diagnosis Hypertension, unspecified type (CMS/HCC)- Primary Paroxysmal tachycardia, unspecified (CMS/HCC) Paroxysmal tachycardia, unspecified Chronic right shoulder pain Pain in joint, shoulder region Scapular dyskinesis Lack of coordination documented in this encounter [facility] HealthcareEvaluation note* Diagnosis Pain in female genitalia on intercourse Dyspareunia Endometriosis Endometriosis, site unspecified documented in this encounter [facility] HealthcareEvaluation noteNo assessment information availableOhio Valley Surgical Hospital Work Phone: Evaluation note* Diagnosis Missed menses , unspecified gestational age Encounter for supervision of normal first in first trimester documented in this encounter [facility] HealthcareEvaluation note* Diagnosis Nonintractable episodic headache, unspecified headache type- Primary Second trimester ([facility]) state, incidental 13 weeks gestation of ([facility]) [facility]* Diagnosis Sinusitis, unspecified chronicity, unspecified location- Primary Second trimester ([facility]) state, incidental 17 weeks gestation of ([facility]) Screening, , for anatomic survey ([facility]) Encounter for anatomic survey documented [facility] this encounter [facility]* Diagnosis 20 weeks gestation of ([facility]) Second trimester ([facility]) state, incidental Diabetes mellitus screening Screening for diabetes mellitus documented in [facility]* Diagnosis Wellness examination- Primary Hypertension, unspecified type Lipid screening Screening for lipoid disorders documented in [facility] encounter [facility]* Diagnosis Wellness examination- Primary Hypertension, unspecified type Lipid screening Screening for lipoid disorders 24 weeks gestation of ([facility]) Second trimester ([facility]) state, incidental Elevated glucose tolerance test Impaired glucose tolerance test documented [facility]* Diagnosis Gestational diabetes mellitus (GDM) in second trimester, gestational diabetes method of control unspecified [facility] Diagnosis Wellness examination- Primary Hypertension, unspecified type Lipid screening Screening for lipoid disorders 26 weeks gestation of ([facility]) Second trimester ([facility]) state, incidental induced hypertension, antepartum ([facility]) Transient hypertension of , antepartum Gestational diabetes mellitus (GDM) in second trimester, gestational diabetes method of control unspecified ([facility]) documented [facility]* Diagnosis Wellness examination- Primary Hypertension, unspecified type Lipid screening Screening for lipoid disorders Hypertension affecting , antepartum ([facility])- Primary 27 weeks gestation of ([facility]) Second trimester ([facility]) state, incidental [facility]* Diagnosis Diet controlled gestational diabetes mellitus (GDM) in second trimester- Primary Essential hypertension affecting in third trimester [facility] Diagnosis 28 weeks gestation of - Primary Insulin controlled gestational diabetes mellitus (GDM) in second trimester Essential hypertension affecting in third trimester [facility] Diagnosis Essential hypertension affecting in third trimester [facility] Diagnosis Wellness examination- Primary Hypertension, unspecified type Lipid screening Screening for lipoid disorders 29 weeks gestation of ([facility]) Third trimester ([facility]) state, incidental Hypertension affecting , antepartum ([facility]) Gestational diabetes mellitus (GDM), antepartum, gestational diabetes method of control unspecified([facility]) documented in this encounter [facility] HealthcareEvaluation note* Diagnosis Insulin controlled gestational diabetes mellitus (GDM) in third trimester- Primary Essential hypertension affecting in third trimester documented [facility]* Diagnosis Insulin controlled gestational diabetes mellitus (GDM) in second trimester documented [facility]* Diagnosis Insulin controlled gestational diabetes mellitus (GDM) in second trimester documented [facility]* Diagnosis Wellness examination- Primary Hypertension, unspecified type Lipid screening Screening for lipoid disorders Third trimester ([facility]) state, incidental 31 weeks gestation of ([facility]) Pre-eclampsia in third trimester ([facility]) documented [facility] general Narrative - Reported* Type Description Date Medical History headache Surgical HistoryappendectomySurgical Historyshoulder surgerySurgical History endometriosis Dexcom Other History of Present illness Narrative* 26 [...] engaged x 1 year * working at [email or web address] in [place] [address] Work Phone: Hospital course Narrative No data available for this section [facility] No data available for this section [facility] CenterInstructionsNot on filedocumented in this encounter [facility]ructionsNot on filedocumented in this encounter [facility] SystemInstructionsNot on filedocumented in this encounter [facility] SystemInstructionsNot on filedocumented in this encounter [facility]* Attachments The following attachments cannot be sent through Care Everywhere. * Preeclampsia (Tanzanian) documented in this encounterPro[facility]ica Health SystemInstructionsNot on file documented in this encounterProMedica Health SystemInstructionsNot on file documented in this encounterProMedica Health SystemInstructionsNot on file documented in this encounterProMedica Health SystemInstructionsNot on file documented in this encounterProMedica Health SystemProgress note No data available for this section [facility] for visit NarrativePT HERE AT REQUEST OF DR RODRÍGUEZ FOR EVALUATION AND TREATMENT OF ELVATED LIVER FUNCTION- ( DR. SAMUEL PT), LABS FROM DR RODRÍGUEZ REVIEWED BY DR Iraheta [employer]apps Other Summary Purpose Family History Unknown Family [...] Bilateral ureterolysis Surgeon: Dr. Charlene Rodriguez Resident/Fellow/Other Senior Editor: Glory Palacio Anesthesia: general I.V. 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 [facility] CLINICAL NURSE LEADER Reason for Referral SpecialtyDiagnoses / ProceduresReferred By ContactReferred To ContactMR IMAGING Diagnoses Pelvic and perineal pain Procedures MRI FEMALE PELVIS WO/W IVCON MRI PELVIS W/O & W/CONTRAST MATERIAL Charlene Rodriguez, [address] [address] Mr Imaging Referral IDStatusReasonSaint Cro[place] DateExpiration DateVisits RequestedVisits [id number] Auto-Generated Referral /[id number] / ProceduresReferred By ContactReferred To ContactREHAB AND SPORTS THERAPY INS Diagnoses Constipation, unspecified constipation type High-tone pelvic floor dysfunction Diastasis of rectus abdominis Dysmenorrhea Other specified dyspareunia Chronic pelvic pain in female Procedures CONSULT TO PHYSICAL THERAPY PHYSICAL THERAPY EVALUATION HIGH COMPLEX 45 MINS Jihan Downs, JAMI.EXTERNAL RELATIONS MANAGER [address] [address] [place] [address] [facility] [place] [address] [place] [address] Referral IDStatus[facility] DateExpiration DateVisits RequestedVisits [id number] Review Auto-Generated Referral / Chief Complaint and Reason for Visit Chief Complaint Admit Date N94.10 N80.9 February 02, 2025 3:1 6pm Additional Source Comments INFORMATION SOURCE (unrecogn ized section and content) DATE CREATED AUTHOR 10/26/2020 [facility] DATE CREATED AUTHOR AUTHOR'S ORGANIZ ATION 11/06/2020 [facility] DATE CREATED AUTHOR AUTHOR'S ORGANIZ ATION 12/17/2020 [facility] DATE CREATED AUTHOR AUTHOR'S ORGANIZ ATION 04/21/2021 [facility] DATE CREATED AUTHOR AUTHOR'S ORGANIZ ATION 06/05/2021 [facility] DATE CREATED AUTHOR AUTHOR'S ORGANIZ ATION 10/02/2021 [facility] DATE CREATED AUTHOR AUTHOR'S ORGANIZ ATION 02/10/2022 [facility] DATE CREATED AUTHOR AUTHOR'S ORGANIZ ATION 12/05/2022 [facility] DATE CREATED AUTHOR AUTHOR'S ORGANIZ ATION 04/30/2024 [facility] DATE CREATED AUTHOR AUTHOR'S ORGANIZ ATION 02/09/2025 [facility] DATE CREATED AUTHOR AUTHOR'S ORGANIZ ATION 03/15/2025 [facility] DATE CREATED AUTHOR AUTHOR'S ORGANIZ ATION 08/03/2025 [facility] DATE CREATED AUTHOR AUTHOR'S ORGANIZ ATION 08/13/2025 [facility] DATE CREATED AUTHOR AUTHOR'S ORGANIZ ATION 08/16/2025 [facility] DATE CREATED AUTHOR AUTHOR'S ORGANIZ ATION 08/20/2025 [facility] DATE CREATED AUTHOR AUTHOR'S ORGANIZ ATION 08/21/2025 [facility] DATE CREATED AUTHOR AUTHOR'S ORGANIZ ATION 08/29/2025 [facility] DATE CREATED AUTHOR AUTHOR'S ORGANIZ ATION 09/06/2025 [facility] DATE CREATED AUTHOR AUTHOR'S ORGANIZ ATION 09/12/2025 [facility] DATE CREATED AUTHOR AUTHOR'S ORGANIZ ATION 10/02/2025 [facility] EPIC Care Team (unrecognized sect ion and content) Team MemberRelationshipSpecialtyStart DateEnd Date Denny Rodríguez MD [address] [place] [phone] PCP - GeneralFamily Medicine12/03/14Team MemberRelationshipSpecialtyStart DateEnd Date Denny Rodríguez MD [address] [place] [address] PCP - GeneralFamily Medicine12/03/14Team MemberRelationshipSpecialtyStart DateEnd Date Denny Rodríguez MD [address] [place] [address] PCP - GeneralFamily Medicine12/03/14Team MemberRelationshipSpecialtyStart DateEnd Date Denny Rodríguez MD [address] [place] [address] PCP - Generalmily Medicine12/03/14Team MemberRelationshipSpecialtyStart DateEnd Date Denny Rodríguez MD [address], [phone] PCP - GeneralFamily Medicine12/03/14Team MemberRelationshipSpecialtyStart DateEnd Date Denny Rodríguez MD [address] [place] [address] PCP - GeneralFamily Medicine12/03/14Team MemberRelationshipSpecialtyStart DateEnd Date Denny Rodríguez MD [address] [place] [address] PCP - GeneralFamily Medicine12/03/14Team MemberRelationshipSpecialtyStart DateEnd Date Denny Rodríguez MD [address] [place] [address] PCP - GeneralFamily Medicine12/03/14Team MemberRelationshipSpecialtyStart DateEnd Date Denny Rodríguez MD [address] [place] [phone] PCP - GeneralFamily Medicine12/03/14Team MemberRelationshipSpecialtyStart DateEnd Date Denny Rodríguez MD [address] [place] [phone] PCP - GeneralFamily Medicine12/03/14Team MemberRelationshipSpecialtyStart DateEnd Date Denny Rodríguez MD [address] [place] [address] PCP - [facility] Kxxcenmgpy49/1/21 Denny Rodríguez MD [address] [place] [address] PCP - Generalmily Medicine04/10/23 Denny Rodríguez MD [address] [place] [address] PCP - [facility]02/24/23 Zenobia [place] NP [address] [place] [address] Nurse PractitionerFamily Rfawsrzi15/10/23 Trista Thao NP [address] [place] [phone] Nurse PractitionerPulmonary Omteuft76/10/23Team MemberRelationshipSpecialtyStart DateEnd Date Denny Rodríguez MD [address] [place] [address] PCP - [facility] Medicine12/03/14Team MemberRelationshipSpecialtyStart DateEnd Date Denny Rodríguez MD [address] [place] [address] PCP - [facility] Medicine12/03/14Team MemberRelationshipSpecialtyStart DateEnd Date Denny Rodríguez MD [address] [place] [address] PCP - [facility] Otixizvpwn01/1/21 Denny Rodríguez MD [address], [id number] PCP - [facility]02/24/23 Eliceo Beltran DO [address] [place], [id number] PCP - [facility]02/14/24Team MemberRelationshipSpecialtyStart DateEnd Date Denny Rodríguez MD [address] [place] [address] PCP - [facility] Nsyburqifo51/1/21 Denny Rodríguez MD [address] [place] [address] PCP - [facility]02/24/23 Eliceo Beltran DO [address] [place] [address] PCP - [facility]02/14/24Team MemberRelationshipSpecialtyStart DateEnd Date Denny Rodríguez MD [address] [place] [address] PCP - [facility] Ausvbkvxhz87/1/21 Denny Rodríguez MD [address] [place] [address] PCP - [facility]02/24/23 Elicoe Beltran DO [address] [place], [id number] PCP - [facility]02/14/24Team MemberRelationshipSpecialtyStart DateEnd Date Denny Rodríguez MD [address] [place] [address] PCP - [facility] Pdadzekxdk29/1/21 Denny Rodríguez MD [address] [place], [id number] PCP - [facility]02/24/23 Eliceo Beltran DO [address] [place], [id number] PCP - [facility]02/14/24Team MemberRelationshipSpecialtyStart DateEnd Date Denny Rodríguez MD [address] [place] [address] PCP - [facility] Ivztvmynjp83/1/21 Denny Rodríguez MD [address] [place] [address] PCP - [facility]02/24/23 Eliceo Beltran, [address] [place] [address] PCP - GeneralFamily Medicine02/14/24Team MemberRelationshipSpecialtyStart DateEnd Date Denny Rodríguez MD [address] [place] [address] PCP - [facility]09/26/21 Eliceo Beltran DO [address] [place] [address] [facility] - [facility]/24Team MemberRelationshipSpecialtyStart DateEnd Date Eliceo Beltran DO [address] [place] [address] [facility]02/14/24Team MemberRelationshipSpecialtyStart DateEnd Date Eliceo Beltran DO [address] [place] [address] [facility]/24 Team Status: Active Member Role Status Dates Denny Rodríguez MD Primary Care Provider Active Team Status: Inactive Member Role Status Dates Denny Rodríguez MD Primary Care Provider Active S tart: February 02, 2025 End: February 02orepearl Pop DOAttending ProviderActiveStart: February 02, 2025 End: February 02, 2025Team MemberRelationshipSpecialtyStart DateEnd Date Eliceo Beltran DO [address] [place] [address] PCP - GeneralFamily Medicine02/14/24 Eliceo Beltran, [address] [place] [address] PCP - [facility]07/27/2412Team MemberRelationshipSpecialty Start DateEnd Date Eliceo Beltran, [address] [place] [address] PCP - [facility] Medicine02/14/24 Eliceo Beltran, [address] [place] [address] PCP - [facility]07/27/2412Team MemberRelationshipSpecialty Start DateEnd Date Eliceo Beltran DO [address] [place] [address] PCP - [facility] Medicine02/14/24 Eliceo Beltran, [address] [place] [address] PCP - [facility]07/27/2412Team MemberRelationshipSpecialty Start DateEnd Date Eliceo Beltran DO [address] [place] [address] PCP - [facility] Medicine02/14/24 Eliceo Beltran DO [address] [place] [address] PCP - [facility]07/27/2412Team MemberRelationshipSpecialty Start DateEnd Date Eliceo Beltran DO [address] [place] [address] PCP - [facility]02/14/24 Eliceo Beltran, DO [address] [place] [address] PCP - [facility]07/27/2412Team MemberRelationshipSpecialty Start DateEnd Date Eliceo Beltran, DO [address] [place] [address] PCP - [facility] Medicine02/14/24 Eliceo Beltran, DO [address] [place] [address] PCP - [facility]07/27/2412Team MemberRelationshipSpecialty Start DateEnd Date Eliceo Beltran, DO [address] [place] [address] PCP - [facility] Medicine02/14/24 Eliceo Beltran, DO [address] [place] [address] PCP - [facility]07/27/2412Team MemberRelationshipSpecialty Start DateEnd Date Eliceo Beltran, DO [address] [place] [address] PCP - [facility] Medicine02/14/24 Eliceo Beltran, DO [address] [place] [address] PCP - [facility]07/27/2412Team MemberRelationshipSpecialty Start DateEnd Date Eliceo Beltran, [address] [place] [address] PCP - GeneralFamily Medicine02/14/24 Eliceo Beltran DO [address] [place] [address] PCP - [facility]07/27/2412Team MemberRelationshipSpecialty Start DateEnd Date Eliceo Beltran DO [address] [place] [address] PCP - [facility]02/14/24 Eliceo Beltran DO [address] [place] [address] PCP - [facility]07/27/2412Team MemberRelationshipSpecialty Start DateEnd Date Eliceo Beltran DO [address] [place] [address] PCP - [facility]02/14/24 Eliceo Beltran DO [address] [place] [address] PCP - [facility]07/27/2412Team MemberRelationshipSpecialty Start DateEnd Date Denny Rodríguez MD [address] [place] [address] PCP - [facility]12/02/18Team MemberRelationshipSpecialtyStart DateEnd Date Denny Rodríguez MD [address] [place] [address] PCP - [facility]12/02/18Team MemberRelationshipSpecialtyStart DateEnd Date Eliceo Beltran, DO [address] [place] [address] PCP - [facility]02/14/24 Eliceo Beltran, DO [address] [place] [address] PCP - [facility]07/27/2412Te MemberRelationshipSpecialty Start DateEnd Date Eliceo Beltran DO [address] [place] [address] [facility] - [facility]02/14/24 Eliceo Beltran, DO [address] [place] [address] [facility] - [facility]07/27/2412Team MemberRelationshipSpecialty Start DateEnd Date Eliceo Beltran, DO [address] [place] [address] PCP - [facility]02/14/24 Eliceo Beltran, DO [address] [place] [address] [facility] - [facility]07/27/2412Team MemberRelationshipSpecialty Start DateEnd Date Eliceo Beltran, DO [address] [place] [address] PCP - GeneralFamily Medicine02/14/24 Eliceo Beltran DO [address] [place] [address] PCP - [facility]07/27/2412Team MemberRelationshipSpecialty Start DateEnd Date Denny Rodríguez MD [address] [place] [address] PCP - GeneralFamily Medicine12/02/18Te MemberRelationshipSpecialtyStart DateEnd Date Eliceo Beltran DO [address] [place] [address] PCP - [facility]02/14/24 Eliceo Beltran DO [address] [place] [address] PCP - [facility]07/27/2412Team MemberRelationshipSpecialty Start DateEnd Date Eliceo Beltran DO [address] [place] [address] PCP - [facility]02/14/24 Eliceo Beltran DO [address] [place] [address] PCP - [facility]07/27/2412Team MemberRelationshipSpecialty Start DateEnd Date Denny Rodríguez MD [address] [place] [address] [facility]12/02/18Team MemberRelationshipSpecialtyStart DateEnd Date Denny Rodríguez MD [address] [place] [address] PCP - GeneralFamily Medicine12/02/18Team MemberRelationshipSpecialtyStart DateEnd Date Eliceo Beltran, DO [address] [place] [address] PCP - GeneralFamily Medicine02/14/24 Eliceo Beltran, DO [address] [place] [address] PCP - [facility]07/27/2412Team MemberRelationshipSpecialty Start DateEnd Date Eliceo Beltran, [address] [place] [address] PCP - GeneralFamily Medicine02/14/24 Eliceo Beltran, DO [address] [place] [address] PCP - [facility]07/27/2412Team MemberRelationshipSpecialty Start DateEnd Date Denny Rodríguez MD [address] [place] [address] PCP - GeneralFamily Medicine12/02/18Team MemberRelationshipSpecialtyStart DateEnd Date Denny Rodríguez MD [address] [place] [address] PCP - GeneralFamily Medicine12/02/18Team MemberRelationshipSpecialtyStart DateEnd Date Denny Rodríguez MD [address] [place] [address] PCP - [facility] Nuwlgiuohr10/1/ Denny Rodríguez MD [address] [place] [address] PCP - GeneralFamily Medicine Denny Rodríguez MD [address] [place] [address] PCP - [facility] Eliceo Beltran DO [address] [place] [address] PCP - GeneralFamily Medicine02/14/24 Eliceo Beltran DO [address] [place] [address] PCP - [facility] [employer]07/27/2412 Zenobia East NP [address] [place] [address] Nurse PractitionerFamily Wtoydoon46/10/235 Trista Thao NP [address] [place] [id number] Nurse PractitionerPulmonary Tbzpkad76/10/235Team MemberRelationship SpecialtyStart DateEnd Date Eliceo Beltran DO [address] [place] [address] PCP - GeneralFamily Medicine02/14/24 Eliceo Beltran DO [address] [place] [address] PCP - [facility]07/27/2412Team MemberRelationshipSpecialty Start DateEnd Date Denny Rodríguez MD [address] [place] [address] PCP - GeneralFamily Medicine12/02/18 Source Comments (unrecognize d section and content) In the event this informatio n is protected by the Federal Confidentiality of Alcohol and Drug Abuse Patient Records regulations: The Federal rules restrict any use of the information to criminally investigate or prosecute any alcohol or drug abuse patient.[facility] the event this information is protected by the Federal Confidentiality of Alcohol and Drug Abuse Patient Records regulations: The Federal rules restrict any use of the information to criminally investigate or prosecute any alcohol or drug abuse patient.[facility] HospitalIn the event this information is protected by the Federal Confidentiality of Alcohol and Drug Abuse Patient Records regulations: The Federal rules restrict any use of the information to criminally investigate or prosecute any alcohol or drug abuse patient.[facility] HospitalIn the event this information is protected by the Federal Confidentiality of Alcohol and Drug Abuse Patient Records regulations: The Federal rules restrict any use of the information to criminally investigate or prosecute any alcohol or drug abuse patient.[facility] HospitalIn the event this information is protected by the Federal Confidentiality of Alcohol and Drug Abuse Patient Records regulations: The Federal rules restrict any use of the information to criminally investigate or prosecute any alcohol or drug abuse patient.[facility] HospitalIn the event this information is protected by the Federal Confidentiality of Alcohol and Drug Abuse Patient Records regulations: The Federal rules restrict any use of the information to criminally investigate or prosecute any alcohol or drug abuse patient.[facility] HospitalIn the event this information is protected by the Federal Confidentiality of Alcohol and Drug Abuse Patient Records regulations: The Federal rules restrict any use of the information to criminally investigate or prosecute any alcohol or drug abuse patient.[facility] HospitalIn the event this information is protected by the Federal Confidentiality of Alcohol and Drug Abuse Patient Records regulations: The Federal rules restrict any use of the information to criminally investigate or prosecute any alcohol or drug abuse patient.[facility] HospitalIn the event this information is protected by the Federal Confidentiality of Alcohol and Drug Abuse Patient Records regulations: The Federal rules restrict any use of the information to criminally investigate or prosecute any alcohol or drug abuse patient.[facility] HospitalIn the event this information is protected by the Federal Confidentiality of Alcohol and Drug Abuse Patient Records regulations: The Federal rules restrict any use of the information to criminally investigate or prosecute any alcohol or drug abuse patient.[facility] HospitalIn the event this information is protected by the Federal Confidentiality of Alcohol and Drug Abuse Patient Records regulations: The Federal rules restrict any use of the information to criminally investigate or prosecute any alcohol or drug abuse patient.[facility] HospitalIn the event this information is protected by the Federal Confidentiality of Alcohol and Drug Abuse Patient Records regulations: The Federal rules restrict any use of the information to criminally investigate or prosecute any alcohol or drug abuse patient.[facility] HospitalIn the event this information is protected by the Federal Confidentiality of Alcohol and Drug Abuse Patient Records regulations: The Federal rules restrict any use of the information to criminally investigate or prosecute any alcohol or drug abuse patient.[facility] HospitalIn the event this information is protected by the Federal Confidentiality of Alcohol and Drug Abuse Patient Records regulations: The Federal rules restrict any use of the information to criminally investigate or prosecute any alcohol or drug abuse patient.[facility] HospitalIn the event this information is protected by the Federal Confidentiality of Alcohol and Drug Abuse Patient Records regulations: The Federal rules restrict any use of the information to criminally investigate or prosecute any alcohol or drug abuse patient.[facility] Reason for Visit (unrecogniz ed section and content) ReasonCommentsMenstrual ProblemReasonCommentsVaginal BleedingReasonComments EndometriosisReasonCommentsInsurance AuthorizationOrilissaReasonCommentsPelvic PainSpecialtyDiagnoses / ProceduresReferred By ContactReferred To ContactOB/VIDEO POKER FLOORMAN / GYNECOLOGY Diagnoses Painful menstrual periods Painful Periods Procedures OFFICE/OUTPATIENT ESTABLISHED MDM 10-19 MIN EST WHI PATIENT Jihan Downs, WELDING INSTRUCTOR.EXTERNAL RELATIONS MANAGER [address] [place] [id number] Jihan Downs, WELDING INSTRUCTOR.EXTERNAL RELATIONS MANAGER [address] [place] [id number] Referral IDStatusReasonStart DateExpiration DateVisits RequestedVisits [id number]/25/202312/[id number] MRI SpecialtyDiagnoses / ProceduresReferred By ContactReferred To ContactMR IMAGING Diagnoses Pelvic and perineal pain Procedures MRI FEMALE PELVIS WO/W IVCON MRI PELVIS W/O & W/CONTRAST MATERIAL Charlene Rodriguez, DO [address] [facility] [address] [place] [address] [facility] [place] [address] Referral IDStatusReasonStart DateExpiration DateVisits RequestedVisits [id number] Auto-Generated Referral /[id number] DateCommentsRefill Yhnicxc96/07/2024Reason CommentsMenorrhagiaCramping with bleedingReasonCommentsSurgery Cancelled SpecialtyDiagnoses / ProceduresReferred By ContactReferred To Contact Diagnoses Preeclampsia, severe, third trimester Procedures O14.13 - Preeclampsia, severe, third trimester Kathe Ryder DO [address] [place] [address] [facility] [address] [place] [address] Referral IDStatusReasonStart DateExpiration DateVisits RequestedVisits [id number] Pressure CheckReasonCommentsDysmenorrhea ReasonCommentsWell Women VisitReasonCommentsShoulder PainReasonCommentsPainful IntercourseReasonCommentsAmenorrheaReasonCommentsRoutine VisitReason CommentsGestational DiabetesSpecialtyDiagnoses / ProceduresReferred By Contact Referred To ContactMaternal and Medicine Diagnoses Gestational diabetes mellitus (GDM) in second trimester, gestational diabetes method of control unspecified Nathan Pop R, DO [address] [place] [address] Phone: tel: fax: [facility] [address] [place] [address] Phone: tel: fax: Referral IDStatusReasonStart DateExpiration DateVisits RequestedVisits [id number] Review Specialty Services Required /[id number] consult Scheduled Active and Recently Administ ered Medications (unrecognized section and content) Medication Order11/30///05/2023 ferrous sulfate tablet 325 mg 325 mg, [...] 0942 (Given - Provider: Anna Booth, RN) Medication Order11/30////05/2023 magnesium sulfate 20 GM/500ML infusion () 2,000 [...] every 2-3 minutes with cervical changes or [place] units (MVU) greater than 200 in a [...] (Given - Provider: Alejandra Arcos RN) * 193 (Given - Provider: Lani Fraga RN) * 0551 (Given - Provider: Lani Fraga RN) * 122 (Given - Provider: Alejandra Arcos RN) * 232 (Given - Provider: Lida Mark RN) * [...] (Given - Provider: Alejandra Arcos RN) * 193 (Given - Provider: Lani Fraga RN) * 0551 (Given - Provider: Lani Fraga RN) * 122 (Given - Provider: Alejandra Arcos RN) * 2327 (Given - Provider: Lida Mark RN) * 0942 (Given - Provider: Anna Booth RN) * 1601 (Given - Provider: Anna Booth RN) lanolin (Lansinoh) cream Topical, As needed, dry skin, nipple discomfort, Starting on Sun11/30/22 at 0608, , Apply to affected area. [...] BE BASED ON THE PRIMARY CLINICAL RECORDS. [employer] provides no warranty or guarantee of the accuracy or completeness of information in this document.
[2025-10-07 16:44] VITALS: BP 132/60; PULSE 96
== END 2025-10-07 17:38 | disposition home or self-care (01) ==
LOC: FBCO 16:37 → FBC 16:41
PROVIDERS: Family Provider Family Medicine; PCP Family Medicine; Visit Provider Obstetrics & Gynecology
DX: O24.419 Gestational diabetes mellitus in pregnancy, unspecified control (principal); Z3A.32 32 weeks gestation of pregnancy
CPT/HCPCS: 59025

== ENCOUNTER 2025-10-10 10:16 | Outpatient (OUT) | payer OTHER, SELFPAY ==
--- OUTSIDE RECORDS SUMMARY | 2025-09-30 15:00 | XMS_ITS | Encounter Summary ---
Author Organization [facility] Address [address] [place] [address] Care Team Providers Care Postal Service Clerk Name Role Phone CharlotteEliceo medina Primary Care Provider [phone] Charlottecarol Eliceo Hurtado DO Unavailable [phone] Reason for Visit * ReasonCommentsRoutine Visit Encounter Details DateTypeDepartmentCare Team (Latest Contact Info)Crmpxiwjhew37/05/2025 3:00 PM ESTRoutine [facility] [address] [place] [phone] Nathan Pop DO [address] [place] [place], [place] [id number] Third trimester ([facility]); 31 weeks gestation of ([facility]); Pre-eclampsia in third trimester ([facility]) Social History Tobacco UseTypesPacks/DayYears UsedDateSmoking Tobacco: NeverSmokeless Tobacco: NeverAlcohol UseStandard Drinks/WeekCommentsNever0 (1 standard drink = 0.6 oz pure alcohol)caffeine: 1-2 cups per day, coffee and [id number] Health Literacy AnswerDate RecordedHow often do you [...] relatives?Once a week12/29/2024How often do you attend jehovah's witness or jainism services?Patient ixklgrtz68/03/2025Do you belong to any clubs or organizations such as jehovah's witness groups, unions, Com[employer] or athletic leodan ups, or school groups?No12/29/2024How often do you attend meetings of the clubs or organizations you belong to?Patient gxhbqsol69/03/2025re you , , , , never , [...] hard at all12/29/2024PHQ-2AnswerDate RecordedPatient Health Questionnaire-2 Score0 07/30/2025[facility] [place] of Occupational Health - Occupational Stress QuestionnaireAnswerDate RecordedDo you feel stress - tense, restless, nervous, or anxious, or unable to sleep at night because yourmind is troubled all the time - these days?Only a sbphos5112/29/2024Exercise Vital SignAnswerDate Recorded On average, how many [...] steady place to sleep or slept in [facility] (including [facility])?No09/19/2023Housing Stability Vital SignAnswerDate RecordedIn the last 12 months, was there a time when you were not able to pay the mortgage or rent on time?No12/29/2024Number of Times Moved in the Last YearNot on file12/29/2024t any time in the past 12 months, were you homeless or living in a custodial (including now)?No12/29/2024 EducationAnswerDate RecordedWhat is the highest level of school you have completed or the highest degree you have received?High school ekennapa21/29/2023 Estimated Date of MomkqjbiJsvmerlmWzt86/03/2026ased on last menstrual period of 02/21/2025Sex and Gender InformationValueDate RecordedSex Assigned at BirthNot on fileLegal NmxZaazvy03/15/2023 7:18 PM EDTGender IdentityNot on file Sexual OrientationNot on 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 Not on fileNot on fileNot on filedocumented as of this encounter Last Filed Vital Signs Vital SignReadingTime TakenCommentsBlood Lslndxnf781/8211 3:04 PM EST Pulse--Temperature--Respiratory Rate--Oxygen Saturation--Inhaled Oxygen Concentration--Uxltjr76.3 kg (166 lb)09/30/2025 3:04 PM ESTHeight--Body Mass Index30.3609 3:36 PM EDTdocumented in this encounter Progress Notes * Radha Rahman MA - 09/30/2025 3:00 PM EST Reason for Appointment: Patient ID: [...] (NORMODYNE) 200 mg, Oral, 2 times daily metoprolol succinate [...] San infection GDM (gestational diabetes mellitus) ([facility]) Headache History of menstrual cramps ([facility]) Varicella zoster Visual impairment HISTORY PAST MEDICAL HISTORY SOCIAL HISTORY Past Medical History: Diagnosis Date Amenorrhea d/t oral contraceptive pills Endometriosis John San infection GDM (gestational diabetes mellitus) ([facility]) Headache History of menstrual cramps severe Hypertension ([facility]) x1 Varicella zoster unsure Visual impairment w/ [...] Procedure Laterality Date APPENDECTOMY 05/2016 at [facility] [place]URE[place] 12/2022 [...] nursing note reviewed. Exam conducted with a windows infrastructure engineer present. Vitals: Estimated body mass index is 30.36 kg/m?? as calculated from the following: Height as of 07/30/25: 5' 2 . Weight as of this encounter: 166 lb. BP: 140/82 Patient's last menstrual period was 02/21/2025. Assessment/Plan ICD-10-CM 1. Third trimester ([facility]) Z34.93 POCT urinalysis dipstick manually resulted 2. 31 weeks gestation of ([facility]) Z3A.31 3. Pre-eclampsia in third trimester ([facility]) O14.93 Return OB: Patient presents today for a routine obstetrics appointment. Patient is currently 31w4d . Patient states she is doing well [...] week for routine OB appointment. Documented by Radha Rahman MA on behalf of: Nathan Pop DO documented in this encounter Plan of Treatment DateTypeDepartmentCare Team (Latest Contact Info)Juzsthrrjxh86/19/2025 3:30 PM ESTRoutine [facility] [address] [place] [address] Nathan Pop DO [address] [place] [address] documented as of this encounter Procedures Procedure NamePriorityDate/TimeAssociated DiagnosisCommentsPOCT URINALYSIS GGMDGNGMBxhkdxn90/05/2025 3:13 PM EST Third trimester ([facility]) documented in this encounter Results * POCT urinalysis dipstick manually resulted (09/30/2025 3:13 PM EST)Component ValueRef RangeTest MethodAnalysis TimePerformed AtPathologist SignatureColor, UAYellowClarity, UAClearGlucose, UANegativeNegative - 2000(110) ++++ mg/dL Bilirubin, UANegativeNegative - 4(70) +++ mg/dLKetones, UANegativeNegative - 160(16) ++++ mg/dLSpec Grav, UA1.0101 - 1.03Blood, UANegativeNegative - 50 Teodoro/mcLpH, UA6.05 - 9Protein, UANegativeNegative - 2000(20) ++++ mg/dL Urobilinogen, UA1.00.2 - 12 mg/dLLeukocytes, UANegativeNegative - 500+++ Robinson/mcLNitrite, UANegativeNegative - PositiveSpecimen (Source)Anatomical Location / LateralityCollection Method / VolumeCollection TimeReceived Time Urine09/30/2025 3:13 PM EST Narrative Authorizing ProviderResult TypeResult StatusCorey Kiesha DOPOINT OF CARE TEST ENTER/EDIT ORDERABLESFinal Result documented in this encounter Visit Diagnoses Diagnosis Third trimester ([facility]) state, incidental 31 weeks gestation of ([facility]) Pre-eclampsia in third trimester ([facility]) documented in this encounter Care Teams Team MemberRelationshipSpecialtyStart DateEnd Date Eliceo Beltran DO [address] [place], [place] [address] PCP - GeneralFamily Medicine02/14/24 Eliceo Beltran DO [address] [address] PCP - Medical [place] [employer]07/27/2412documented as of this encounter
--- OUTSIDE RECORDS SUMMARY | 2025-10-06 14:30 | XMS_ITS | Encounter Summary ---
Author Organization [facility] tem Address [id number] [address] [place] [address] Care Team Providers Care Child And Family Services Specialist Name Role Phone Cruz Rodríguez MD Primary Care Provider [phone] Encounter Details DateTypeDepartmentCare Team (Latest Contact Info)Lwyueqirzwz20/11/2025 2:30 PM ESTTelemedicine Maternal- Medicine at [facility] [address] [place] [phone] Kayleigh Rizzo PALuis Angel [address] [address] Insulin controlled gestational diabetes mellitus (GDM) in [...] or more drinks on one occasion?Never5ChildcareAnswer Date PpepkdaiWvmzhfebrSqjnyor59/13/2019EmploymentAnswerDate RecordedEmployment Ltrhxol4205/08/2019Hunger ScreeningAnswerDate RecordedWithin the past 12 months we worried whether our food would run out before we got money to buy more.Never True09/10/2025Within the past 12 months the food we bought just didn't last and we didn't have money to get more.Never True09/10/2025Purpose - LifeAnswerDate RecordedPurpose and direction in uwfxDkpammz75/11/2021Estimated Date of GcyyoxfjTripvoowIwg26/03/2026Based on last menstrual period of 02/21/2025 (Exact Date)Sex and Gender InformationValueDate RecordedSex Assigned at BirthNot on fileLegal ZtkQkpswd44/07/2019 2:55 PM ESTGender IdentityNot on fileSexual OrientationNot on filedocumented as of this encounter Progress Notes * Kayleigh Rizzo PA-C - 10/06/2025 2:30 PM EST Maternal- Medicine Consultation VIDEO Patient is present at work, provider present at [facility] HISTORY OF PRESENT ILLNESS: Driss [...] values to us weekly by e-mail to: [email or web address] or by fax to: [phone] Kayleigh Rizzo PA-C Maternal- Medicine Office phone: [phone] Kayleigh Rizzo PA-C 10/06/25 7131 documented in this encounter Plan of Treatment DateTypeDepartmentCare Team (Latest Contact Info)Bmnexoxeqvl55/03/2025 11:00 AM ESTAppointment Maternal Medicine [place] [address] [place] [address] 11/03/2025 2:30 PM ESTOffice Visit Maternal- Medicine at [facility] [address] [place] [address] Kayleigh Rizzo, PALuis Angel [address] [address] documented as of this encounter Visit Diagnoses Diagnosis Insulin controlled gestational diabetes mellitus (GDM) in third trimester- Primary Essential hypertension affecting in third trimester documented in this encounter Care Teams Team MemberRelationshipSpecialtyStart DateEnd Date Cruz Rodríguez MD [address] [place] [address] PCP - GeneralFamily Medicine12/02/18documented as of this encounter
--- OUTSIDE RECORDS SUMMARY | 2025-10-10 10:20 | XMS_ITS | CCD ---
Author Organization [facility] Care Team Providers Care Fan Engine Engineer Name Role Phone Unavailable Unavailable POCOPAL QUINTEROS Referring Unavailable DENNY RODRÍGUEZ Primary Care Unavailable OPAL LARA Referring Unavailable DENNY RODRÍGUEZ Primary Care Unavailable DENNY RODRÍGUEZ Primary Care Physician [phone] Domo Hodges Unavailable PAOLO DIALLO Attending Unavailable KATHE RYDER Admitting Unavailable KATHE RYDER Attending Unavailable Denny Rodríguez MD Primary Care Provider Denny Rodríguez MD Unavailable Denny Rodríguez MD Primary Care Provider [phone] Denny Rodríguez MD Unavailable Kita SALES DEVELOPMENT EXECUTIVE, Zenobia Unavailable Keesha SALES DEVELOPMENT EXECUTIVE, Trista R Unavailable Denny Rodríguez MD Primary [...] KEANE Attending Unavailable STEPH KEANE Admitting Unavailable KAFTANYomaira Attending Unavailable KAFTAN, G KENNETH Admitting Unavailable KIESHA, Nathan R Consulting Unavailable KIESHA, DO Nathan R Consulting Unavailable KIESHA, Nathan R Consulting Unavailable KIESHA, Nathan R Attending Unavailable KIESHA, Nathan R Admitting Unavailable ELSAANA LAURA DUMONT Attending Unavailable ELSA, ANA LAURA TYSON Admitting Unavailable Denny Rodríguez MD Primary Care Provider KIESHA, NATHAN R Referring Unavailable RODRÍGUEZ, DENNY A Primary Care Unavailable MADHURI MONROY Attending Unavailable RODRÍGUEZ, DENNY A Referring Unavailable RODRÍGUEZ, DENNY A Primary Care Unavailable Denny Rodríguez MD Unavailable [phone] Denny Rodríguez MD Primary Care Provider Denny Rodríguez MD Unavailable Kita SALES DEVELOPMENT EXECUTIVE, Zenobia Unavailable Keesha SALES DEVELOPMENT EXECUTIVE, Trista R Unavailable [phone] ELICEO BELTRAN Attending Unavailable KIESHA, NATHAN Attending Unavailable KIESHA, NATHAN Attending Unavailable KIESHA, NATHAN Attending Unavailable KIESHA, NATHAN Attending Unavailable ELICEO BELTRAN Attending Unavailable KIESHA, NATHAN Attending Unavailable STEPH KEANE Attending Unavailable STEPH KEANE Attending Unavailable KIESHA, NATHAN Attending Unavailable KIESHA, NATHAN Attending Unavailable KERLINE AUGUSTIN Attending Unavailable KIESHA, NATHAN R Referring Unavailable RODRÍGUEZ, DENNY A Primary Care Unavailable MINE DENISE Attending Unavailable KIESHA, NATHAN R Referring Unavailable RODRÍGUEZ, DENNY A Primary Care Unavailable CHIVO SPRINGER Attending Unavailable KIESHA, NATHAN R Referring Unavailable RODRÍGUEZ, DENNY A Primary Care Unavailable Allergies Allergy ClassificationReported Allergen(s)Allergy TypeDate of OnsetReaction(s) Facility (4 sources)No Known Medication Allergies; Translations: [No Known Medication Allergies]Propensity to adverse reactions (disorder)[facility] Medications Current Medications MedicationDrug Class(es)DatesSig (Normalized)Sig (Original)acetaminophen 325 mg / butalbital 50 mg / caffeine 40 mg oral tablet (14 sources)Barbiturate, Central Nervous System Stimulant, MethylxanthineStart: 02-19-2024 End: 36-54-5608zngi 1 tablet by mouth every six hours for headache csvuwasgau-bbqvukjjgokms-fjwrrkvx 50-325-40 MG tablet Indications: Other migraine without status migrainosus, not intractable Take 1 tablet by mouth every 6 (six) hours if needed for headaches 20 tablet 02/19/2024 05/01/2025 Discontinuedatenolol 25 mg oral tablet (4 sources)beta-Adrenergic BlockerStart: 35-41-4579oohu 1 mg by mouth once daily atenolol 25 mg Tab mg tab(s), Oral, Daily, Refills(s) 0 Start Date: 02/02/21 Status: OrderedStart: 08-06-2017 End: 05-57-4209ksex 1 tablet by mouth once dailyAtenolol 50 mg tablet Discontinued 50 MG PO Daily August 06, 2017 12:00am October 16, 2018 3 :34pmbaclofen suppository 10 mg (CPD) (8 sources)Start: 82-61-2497actifory suppository 10 mg (CPD) Indications: High- tone pelvic floor dysfunction , Chronic pelvic pain in female Unwrap and insert one suppository vaginally daily at bedtime. 30 Suppository 2 08/24/2023 Active Comment on above:Unwrap and insert one suppository vaginally daily at bedtime. Blood Glucose Monitoring Suppl (D-Care Glucometer) w/Device kit (20 sources)Start: 08-20-2025 End: 33-40-1707Qycws Glucose Monitoring Suppl (D-Care Glucometer) w/Device kit Indications: Gestational diabetes mellitus (GDM), antepartum, gestational diabetes method of control unspecified ([facility]) , Elevated glucose tolerance test 1 kit Daily Use four times daily to check FSBS. In the morning prior to breakfast & 1 hour after each meal for a total of 4times daily. 1 kit 08/20/2025 08/20/2026 Activecephalexin 500 mg oral capsule (6 sources)Cephalosporin AntibacterialStart: 02-14-2021 End: 11-64-9637rizk 1 capsule by mouth every twelve hoursKeflex 500 mg Cap 500 mg = 1 cap(s), Oral, q12hr, X 7 day(s), # 14 cap(s), Refills(s) 0 Start Date: 07/14/22 Stop Date: 07/21/22 Status: OrderedStart: 03-14-2019 End: 44-75-1628lurc 1 capsule by mouth every twelve hoursCephalexin (Keflex) 500 mg capsule Discontinued 500 MG PO Q12H 14 March 14, 2019 12:00am August 04, 2019 8:18amcyclobenzaprine hydrochloride 5 mg oral tablet (20 sources)Muscle RelaxantStart: 12-30-2024 End: 05-86-7201lydd 1 tablet by mouth in the morning, [...] 30 tablet 12/30/2024 01/09/2025 ActiveStart: 05-01-2023 End: 45-06-4499imuo 1 tablet by mouth at bedtime as neededcyclobenzaprine (FLEXERIL) 5 mg tablet Indications: Dysmenorrhea , Chronic pelvic pain in female Take 1 tablet by mouth at bedtime as needed. 30 tablet 1 05/01/2023 ActiveStart: 25-90-4053nrlu 1 tablet by mouth three times daily as needed for muscle spasms cyclobenzaprine 10 mg Tab 10 mg = 1 tab(s), Oral, TID, PRN for spasm, # 30 tab(s), Refills(s) 0, Pharmacy: [facility]58, 157, cm, 01/23/22 7:20:00 EST, Height/Length Dosing, 55, kg, 01/23/22 7:20:00 EST, Weight Dosing Start Date: 01/23/22 Status: Ordered Quantity: 30.0 Unit: tab(s) Repeat number: 1 Comment on above:Take 1 tablet by mouth at bedtime as needed.cyproheptadine hydrochloride 4 mg oral tablet (10 sources)Start: 63-53-3835xarz 1 mg by mouth three times dailycyproheptadine 4 mg Tab mg tab(s), Oral, TID, Refills(s) 0 Start Date: 02/02/21 Status: Ordered Repeat number: 1Dasetta oral tablet (1 source)Start: 00-53-2877pzre 1 tablet by mouth once dailyDasetta oral tablet 1 tab(s), Oral, Daily, Refill(s) 0, control/menstrual regulation Start Date: 11/23/16 Status: Ordereddocusate sodium 100 mg oral capsule (7 sources)Start: 11-30-2022 End: 19-38-0767xdte 1 capsule by mouth twice daily as needed for constipation Docusate Sodium (DSS) 100 MG capsule Take 1 capsule (100 mg) by mouth 2 times daily as needed for constipation (Vaginal Delivery) for up to 10 days. 60 capsule 0 12/01/2022 12/31/2022 ActiveStart: 07-14-2022 End: 84-08-2296yitb 1 capsule by mouth twice dailyColace 100 mg Cap 100 mg = 1 cap(s), Oral, BID, X 10 day(s), # 20 cap(s), Refills(s) 0 Start Date: 07/14/22 Stop Date: 07/24/22 Status: Orderedelagolix 150 mg oral tablet (13 sources)Start: 07-16-2023 End: 47-47-6396asmk 1 tablet by mouth once dailyelagolix (ORILISSA) 150 mg tablet Take 1 tablet (150 mg) by mouth once daily. 30 tablet 11 07/16/2023 07/15/2024 ActiveStart: 82-54-6922obbv 1 tablet by mouth twice dailyOrilissa 200 MG Oral Tablet take 1 tablet by mouth twice a day Quantity: 60 Refills: 4 Ordered: 09-Feb-2022 Charlene Rodriguez DO Start : 09-Feb-2022 ActiveComment on above:Take 1 tablet (150 mg) by mouth once daily.ergocalciferol 0.05 mg oral capsule (1 source)Provitamin D2 CompoundStart: 26-73-5323Igbgfzq D2 2000 intl units oral capsule Oral, Daily, Refills(s) 0 Start Date: 02/02/21 Status: OrderedEthinyl Estradiol / Levonorgestrel (8 sources)Progestin, Estrogen, Progestin-containing Intrauterine DeviceStart: 04-03-2024 End: 34-47-3397mlavcvrotuurpj-ethinyl estradiol (Jolessa) 0.15-0.03 MG tablet Indications: Uses control TAKE1 TABLET BY MOUTH EVERY MORNING 91 tablet 3 04/03/2024 08/18/2024 Discontinued (Other)Start: 30-64-2655nudctkdfpndhqs- ethinyl estradiol (Jolessa) 0.15-0.03 MG tablet Indications: Uses control TAKE1 TABLET BY MOUTH EVERY MORNING 91 tablet 3 04/03/2024 ActiveStart: 01-10-2024 End: 93-24-9652eptw 1 tablet by mouth in the morning, then take 1 tablet by mouth once dailylevonorgestrel-ethinyl estradiol (Jolessa) 0.15-0.03 MG tablet Indications: Uses control Take1 tablet by mouth in the morning. Take 1 tablet by mouth daily. 90 tablet 0 01/10/2024 04/09/2024 Activeethinyl estradiol 0.035 mg / norgestimate 0.25 mg oral tablet (4 sources)Progestin, EstrogenStart: 20-20-7988whyludqcggaj-ethinyl estradiol (Ortho-Cyclen) 0.25-35 MG-MCG tablet 1 (one) time each day at the same time. 0 01/15/2023 ActiveStart: 55-89-3952rbqq 1 tablet by mouth once dailyNorgestimate- Ethinyl Estradiol 0.25-35 mg-mcg tablet Active 1 TAB PO Daily August 04, 2019 12:00amMono-Linyah 0.25-35 MG-MCG Oral for 28 Not-TakinghydrOXYzine hydrochloride 25 mg oral tablet (10 sources)AntihistamineStart: 05-90-5281fhjd 1 mg by mouth four times daily hydrOXYzine hydrochloride 25 mg Tab mg tab(s), Oral, QID, Refills(s) 0 Start Date: 02/02/21 Status: Ordered Repeat number: 1hyoscyamine sulfate 0.125 mg oral tablet (10 sources)Start: 31-33-6754aufg 1 tablet by mouth every six hoursLevsin 0.125 mg SL Tab 0.125 mg = 1 tab(s), Oral, q6hr, # 20 tab(s), Refills(s) 1, Pharmacy: [facility], 161, cm, 03/10/21 11:21:00 EDT, Height/Length Dosing, 56, kg, 03/10/21 11:21:00 EDT, Weight Dosing Start Date: 03/10/21 Status: Ordered Quantity: 20.0 Unit: tab(s) Repeat number: 2ibuprofen 600 mg oral tablet (15 sources)Nonsteroidal Anti-inflammatory DrugStart: 01-23-2022 End: 85-46-0942gkvd 1 tablet by mouth every six hoursibuprofen 600 mg Tab 600 mg = 1 tab(s), Oral, q6hr, # 40 tab(s), Refills(s) 0, [facility]: [facility], 157, cm, 01/23/22 7:20:00 EST, Height/Length Dosing, 55, kg, 01/23/22 7:20:00 EST, WeightDosing Start Date: 01/23/22 Status: Ordered Quantity: 40.0 Unit: tab(s) Repeat number: 1insulin glargine-yfgn (Semglee-yfgn) 100 UNIT/ML pen (8 sources)Start: 95-96-9914wqguqwx glargine-yfgn (Semglee-yfgn) 100 UNIT/ML pen Inject 13 Units under the skin at bedtime 09/15/2025 Activeinsulin glargine-yfgn 100 unit/mL (3 mL) insulin pen (16 sources)Start: 31-36-6411bvuqqoi glargine-yfgn 100 unit/mL (3 mL) insulin pen Indications: Essential hypertension affecting in third trimester Prime with 2 units and give 5 units every morning and 23 units subQ at bedtime. 15 mL 3 09/28/2025 ActiveStart: 09-21-2025 End: 43-17-3476hfylqvd glargine-yfgn 100 unit/mL (3 mL) insulin pen Indications: Essential hypertension affecting in third trimester Prime with 2 units and give 5 units every morning and 20 units subQ at bedtime. 15 mL 3 09/21/2025 09/28/2025 DiscontinuedStart: 86-77-1987aexnber glargine-yfgn 100 unit/mL (3 mL) insulin pen Indications: Essential hypertension affecting in third trimester Prime with 2 units and give 5 units every morning and 20 units subQ at bedtime. 15 mL 3 09/21/2025 ActiveStart: 09-17-2025 End: 63-67-9056pkkvqfj glargine-yfgn 100 unit/mL (3 mL) insulin pen Indications: Essential hypertension affecting in third trimester Prime with 2 units and give 5 units every morning and 17 units subQ at bedtime. 15 mL 3 09/17/2025 09/21/2025 DiscontinuedStart: 66-82-1893gvvvdgt glargine-yfgn 100 unit/mL (3 mL) insulin pen Indications: Essential hypertension affecting in third trimester Prime with 2 units and give 5 units every morning and 17 units subQ at bedtime. 15 mL 3 09/17/2025 ActiveStart: 09-15-2025 End: 83-79-6642ijvhyzk glargine-yfgn 100 unit/mL (3 mL) insulin pen Indications: Essential hypertension affecting in third trimester Prime with 2 units and give 17 units subQ at bedtime. 15 mL 3 09/15/2025 09/17/2025 Discontinued Start: 98-18-6971nchpgvz glargine-yfgn 100 unit/mL (3 mL) insulin pen Indications: Essential hypertension affecting in third trimester Prime with 2 units and give 17 units subQ at bedtime. 15 mL 3 09/15/2025 ActiveStart: 09-10-2025 End: 47-11-7544zcmhwqh glargine-yfgn 100 unit/mL (3 mL) insulin pen Indications: Essential hypertension affecting in third trimester Prime with 2 units and give 13 units subQ at bedtime. 15 mL 3 09/10/2025 09/15/2025 Discontinued Start: 16-47-9297aqlswkz glargine-yfgn 100 unit/mL (3 mL) insulin pen Indications: Essential hypertension affecting in third trimester Prime with 2 units and give 13 units subQ at bedtime. 15 mL 3 09/10/2025 ActiveStart: 09-04-2025 End: 11-52-6993syvaeu 2 [IU] by subcutaneous injection once, then inject 10 [IU] by subcutaneous injection at bedtimeinsulin glargine-yfgn 100 unit/mL (3 mL) insulin pen Indications: Diet controlled gestational diabetes mellitus (GDM) in second trimester , Essential hypertension affecting in third trimester Prime with 2 units and give 10 units subQ at bedtime. 15 mL 3 09/04/2025 09/10/2025 DiscontinuedStart: 13-24-8139uynood 2 [IU] by subcutaneous injection once, then inject 10 [IU] by subcutaneous injection at bedtimeinsulin glargine- yfgn 100 unit/mL (3 mL) insulin pen Indications: Diet controlled gestational diabetes mellitus (GDM) in second trimester , Essential hypertension affecting in third trimester Prime with 2 units and give 10 units subQ at bedtime. 15 mL 3 09/04/2025 Activeisopropyl alcohol 0.7 ml/ml medicated pad (20 sources)Start: 69-79-5989Nsoumrr Swabs (Alcohol Prep Pad) 70 % pads Indications: Gestational diabetes mellitus (GDM), antepartum, gestational diabetes method of control unspecified ([facility]) , Elevated glucose tolerance testApply 1 Pad topically Daily Use four times daily to check FSBS. 150 each 3 08/20/2025 Activeiv contrast (will be provided with radiology test) (12 sources)Start: 69-90-6866eb contrast (will be provided with radiology test) [...] 200 mg oral tablet (20 sources)beta-Adrenergic BlockerStart: 82-96-7411tdyk 1 tablet by mouth in the morninglabetalol (Normodyne) 200 MG tablet Indications: Gestational Hypertension Take 1 tablet (200 mg) bymouth in the morning and 1 tablet (200 mg) before bedtime. 60 tablet 3 09/03/2025 ActiveStart: 07-30-2025 End: 34-53-0521hauh 1 tablet by mouth in the morninglabetalol (Normodyne) 100 MG tablet Indications: Hypertension, unspecified type Take 1 tablet (100 mg) by mouth in the morning and 1 tablet (100 mg) before bedtime. 60 tablet 5 07/30/2025 09/03/2025 DiscontinuedStart: 11-28-2022 End: 39-26-4847igoxrorbl (Normodyne,Trandate) injection 20 mgStart: 11-28-2022 End: 77-32-1384zqcbkewwb (Normodyne,Trandate) injection 20 mgStart: 11-28-2022 End: 63-16-8485jpjnrfzos (Normodyne,Trandate) 5 MG/ML injection - Pyxis ADS Override Pulltake 2 tablets by mouth three times dailylabetaloL (NORMODYNE) 100 mg tablet Take 2 tablets (200 mg total) by mouth 3 (three) times a day. Active magnesium oxide 400 mg oral tablet (9 sources)Start: 05-01-2025 End: 54-88-8151zglf 1 tablet by mouth once dailymagnesium oxide (Mag-Ox) 400 MG tablet Indications: headache in first trimester ([facility])Take 1 tablet (400 mg) by mouth Daily 30 tablet 3 05/01/2025 05/31/2025 Activemeloxicam 15 mg oral tablet (15 sources)Nonsteroidal Anti-inflammatory DrugStart: 02-02-2021 End: 17-33-6559rnyj 1 tablet by mouth once dailymeloxicam (Mobic) 15 MG tablet Indications: Chronic right shoulder pain , Scapular dyskinesis Take 1 tablet (15 mg) by mouth Daily 30 tablet 3 12/30/2024 05/01/2025 Qezufuhyovsg28 hr metoprolol succinate 25 mg extended release oral tablet (20 sources)beta-Adrenergic BlockerStart: 10-15-2024 End: 36-81-4071njiu 1 tablet by mouth once dailymetoprolol succinate XL (Toprol- XL) 25 MG 24 hr tablet Indications: Hypertension, unspecified type Take 1 tablet by mouth daily 90 tablet 1 12/30/2024 ActiveStart: 52-56-3352vasz 1 tablet by mouth once dailymetoprolol succinate XL (Toprol-XL) 25 MG 24 hr tablet Indications: Hypertension, unspecified type (CMS/HCC) Take 1 tablet by mouth daily 90 tablet 1 04/23/2024 ActiveStart: 65-56-0152kskf 1 tablet by mouth once dailymetoprolol succinate XL (Toprol-XL) 25 MG 24 hr tablet Indications: Hypertension, unspecified type (CMS/HCC) Take 1 tablet by mouth daily 90 tablet 1 10/23/2023 ActiveStart: 02-27-2023 End: 00-27-6604khzcwxomdv succinate ER (TOPROL XL) 25 mg 24 hr tabletnaproxen 500 mg delayed release oral tablet (20 sources)Nonsteroidal Anti-inflammatory DrugStart: 54-06-7696aake 1 tablet by mouth twice dailynaproxen 500 mg oral enteric coated tablet 500 mg = 1 tab(s), Oral, BID, # 28 tab(s), Refills(s) 0 Start Date: 11/07/21 Status: Ordered Quantity: 28.0 Unit: tab(s) Repeat number: 1Start: 03-04-2021 End: 05-98-5280rsss 1 tablet by mouth twice dailynaproxen 500 mg Tab 500 mg = 1 tab(s), Oral, BID, Take one tab by mouth two times a day, # 14 tab(s), Refills(s) 0, [facility] 157, cm, 03/04/21 7:22:00 EDT, Height/Length Dosing,52, kg, 03/04/21 7:22:00 EDT, Weight Dosing Start Date: 03/04/21 Status: Ordered Quantity: 14.0 Unit:tab(s) Repeat number: 1Start: 11-02-2018 End: 24-44-6488lyjo 1 tablet by mouth twice daily as [...] (5 sources)Dihydropyridine Calcium Channel BlockerStart: 11-28-2022 End: 59-85-6979BSFYhirilc XL (Procardia XL) 30 MG 24 hr tablet Take 1 tablet (30 mg) by mouth daily. Do not crush,chew, or split. Do not start before December 02, 2022. 90 tablet 0 12/02/2022 12/02/2023 Activenorethindrone acetate 5 mg oral tablet (20 sources)Start: 05-17-2023 End: 21-06-4675dvqc 2 tablets by mouth once dailynorethindrone (AYGESTIN) 5 mg tablet Take 2 tablets by mouth once daily. 60 tablet 5 01/03/2024 07/01/2024 ActiveStart: 04-11-2023 End: 90-53-9272cxaf 1 tablet by mouth once dailynorethindrone (AYGESTIN) 5 mg tablet Take 1 tablet by mouth once daily. 30 tablet 11 04/11/2023 ActiveStart: 25-17-6805aeom 1 tablet by mouth once dailyNorethindrone Acetate 5 MG Oral Tablet TAKE 1 TABLET DAILY. Quantity: 1 Refills: 0 Ordered: 21-Jul-2020 Charlene Rodriguez DO Start : 21-Jul-2020 ActiveComment on above:Take 1 tablet by mouth once daily.Take 2 tablets by mouth once daily.PNV no.95-ferrous fumarate-FA () 28 mg iron- 800 mcg tablet (15 sources)take 1 tablet by mouth in the morningPNV no.95-ferrous fumarate-FA () 28 mg iron- 800 mcg tablet Take 1 tablet by mouth in the morning. Activepramoxine hydrochloride 10 mg/ml rectal foam (2 sources)Start: 07-14-2022 End: 44-46-6175olgy 15 g rectal route twice dailyProctoFoam 1% Foam apply, Rectal, BID for 7 day(s), 15 gm, Refill(s) 0 Start Date: 07/14/22 Stop Date: 07/21/22 Status: OrderedPrenatal Multivitamins with Vitamin B Complex, Vitamin C, Minerals and L-Methylfolate oral capsule (9 sources)Start: 97-97-8561Azmfwijp Multivitamins with Vitamin B Complex, Vitamin C, Minerals and L-Methylfolate oral capsule 1 cap(s), Oral, Daily, 30 cap(s), Refill(s) 0 Start Date: 07/14/22 Status: Ordered Quantity: 30.0 Unit: cap(s) Repeat number: 1Start: 88-04-8624Mwpfwivx Multivitamins with Vitamin B Complex, Vitamin C, Minerals and L-Methylfolate oral capsule 1 cap(s), Oral, Daily, 30 cap(s), Refill(s) 0 Start Date: 07/14/22 Status: OrderedPrenatal Vit-Fe Fumarate-FA ( Vitamin) 27-0.8 MG tablet (3 sources) Vit-Fe Fumarate-FA ( Vitamin) 27-0.8 MG tablet Take by mouth. 0 ActivePrenatal Vit-Fe Fumarate-FA ( Vitamins) 28-0.8 MG tablet (20 sources)Start: 05-01-2025 End: 63-49-0610lide 1 tablet by mouth once dailyPrenatal Vit-Fe Fumarate-FA ( Vitamins) 28-0.8 MG tablet Indications: , unspecified gestational age ([facility]) , Encounter for supervision of normal first in first trimester([facility]) Take 1 tablet by mouth Daily 30 tablet 11 05/01/2025 05/01/2026 ActiveStart: 05-01-2025 End: 53-21-3027atpw 1 tablet by mouth once dailyPrenatal Vit-Fe Fumarate-FA ( Vitamins) 28-0.8 MG tablet Indications: , unspecified gestational age , Encounter for supervision of normal first in first trimester Take 1 tablet by mouth Daily 30 tablet 11 05/01/2025 05/01/2026 Active SUMAtriptan 100 mg oral tablet (10 sources)Serotonin-1b and Serotonin-1d Receptor AgonistStart: 54-78-1190qntd 1 mg by mouth onceImitrex 100 mg Tab mg tab(s), Oral, Once, Refills(s) 0 Start Date: 02/02/21 Status: Ordered Repeat number: 1Surgical Lubricant Jelly gel (12 sources)Start: 33-81-1817Crfkkyil Lubricant Jelly gel For MRI Female Pelvis, MRI department to provide. Administer intra-vaginal Surgilube immediately prior the MRI procedure (total amount to patient toleranace). 1 g 0 05/17/2023 Active Comment on above:For MRI Female Pelvis, MRI department to provide. Administer intra-vaginal Surgilube immediately prior the MRI procedure (total amount to patient toleranace).tiZANidine 4 mg oral tablet (3 sources)Central alpha-2 Adrenergic AgonistStart: 53-52-4427tccz 1 mg by mouth every eight hourstiZANidine 4 mg Tab mg tab(s), Oral, q8hr, Refills(s) 0 Start Date: 02/02/21 Status: OrderedtraMADol hydrochloride 50 mg oral tablet (10 sources)Opioid AgonistStart: 63-71-6685hvbl 1 tablet by mouth every four hours as needed for paintraMADol (ULTRAM) 50 mg tablet Indications: Pelvic pain in female Take 1 tablet by mouth every 4 hours as needed for pain. 20 tablet 0 08/30/2023 ActiveStart: 60-12-6050zsvn 1 tablet by mouth every six hourstraMADol HCl - 50 MG Oral Tablet TAKE 1 TABLET Every 6 hours Quantity: 20 Refills: 0 Ordered: 18-Aug-2020 Charlene Rodriguez DO Start : 18-Aug-2020 ActiveStart: 03-12-2019 End: 76-87-7390gqnp 1 tablet by mouth every four hours as needed for pain Tramadol 50 mg tablet Discontinued 50 MG PO Q4H as needed for pain 30 5 March 12, 2019 12:00am August 04, 2019 8:19amComment on above:Take 1 tablet by mouth every 4 hours as needed for pain.Vitamin D2 2000 intl units oral capsule (9 sources)Start: 70-37-8905umib 1 capsule by mouth once dailyVitamin D2 2000 intl units oral capsule Oral, Daily, Refills(s) 0 Start Date: 02/02/21 Status: Ordered Repeat number: 1Start: 72-48-9734Enufxvt D2 2000 intl units oral capsule Oral, Daily, Refills(s) 0 Start Date: 02/02/21 Status: Ordered Completed/Discontinued Medications MedicationDrug Class(es)DatesSig (Normalized)Sig (Original)acetaminophen 325 mg oral tablet (4 sources)Start: 11-30-2022 End: 82-75-0596ghqk 1 tablet by mouth every six hours as needed for dgrb438 mg, Oral, Every 6 hours PRN, mild pain (1-3), Starting on Constance 11/30/22 at 0422 Give in addition to any other pain medication ordered at same time for any pain indication. Maximumdose of acetaminophen is 4000 mg from all sources in 24 hours. Alternate ibuprofen and acetaminophen every 3 hours.Start: 11-28-2022 End: 99-81-5925qeeuxrfccqeil (Tylenol) tablet 1,000 mgacetaminophen 300 mg / codeine phosphate 30 mg oral tablet (4 sources)Opioid AgonistStart: 01-19-2025 End: 37-77-4606rsal 1 tablet by mouth every six hours for painacetaminophen- codeine (Tylenol w/ Codeine #3) 300-30 MG tablet Indications: Pain in female genitalia on intercourse , Endometriosis Take 1 tablet by mouth every 6 (six) hours if needed for severe pain for up to 5 days 20 tablet 01/19/2025 01/24/2025 ExpiredStart: 07-22-2024 End: 28-23-1411ofey 1 tablet by mouth every six hours for painacetaminophen- codeine (Tylenol w/ Codeine #3) 300-30 MG tablet Indications: Dysmenorrhea, unspecified Take 1 tablet by mouth every 6 (six) hours if needed for severe pain for up to 5 days 20 tablet 07/22/2024 07/27/2024 Activeascorbic acid 500 mg oral tablet (5 sources)Vitamin CStart: 10-25-2018 End: 18-68-9420jizq 2 tablets by mouth in the morningASCORBIC ACID WITH ISAURO HIPS 500 MG tablet Take 2 tablets (1,000 mg total) by mouth in the morning.0 10/25/2018 09/04/2025 Discontinued ()aspirin 325 mg / butalbital 50 mg / caffeine 40 mg oral capsule (11 sources)Platelet Aggregation Inhibitor, Barbiturate, Nonsteroidal Anti- inflammatory Drug, Central Nervous System Stimulant, Methylxanthine End: 74-53-7529axsn 1 capsule by mouth every four hours as needed phxjbsydue-kiibfsi-yuxanpfq (Fiorinal) 50-325-40 MG capsule Take 1 capsule [...] spray (2 sources)Standardized Chemical AllergenStart: 11-30-2022 End: 54-67-3256Upyroba, As needed, pain, , Starting on Constance 11/30/22 at 0608, Apply to perineal area. Patient is capable and may self administer at bedside.betamethasone 3 mg/ml / betamethasone acetate 3 mg/ml injectable suspension (2 sources)CorticosteroidStart: 11-28-2022 End: 31-68-0542yfctcwdfdgtse acetate-betamethasone sodium phosphate (Celestone) injection 12 mgcalcium chloride 0.0014 meq/ml / potassium chloride 0.004 meq/ml / sodium chloride 0.103 meq/ml / sodium lactate 0.028 meq/ml injectable solution (2 sources)Start: 11-28-2022 End: 13-83-0604vjsw 125 mL intravenously every alll536 mL/hr, IntraVENous, Continuous, Starting on Sun11/28/22 at 0100, Pre-Deliverycetirizine hydrochloride 10 mg oral tablet (17 sources)Histamine-1 Receptor AntagonistStart: 06-09-2025 End: 02-29-0528vbyl 1 tablet by mouth once dailycetirizine (ZyrTEC ALLERGY) 10 MG tablet Indications: Allergy, sequela Take 1 tablet (10 mg) by mouth Daily 30 tablet 11 06/09/2025 07/15/2025 DiscontinuedchlordiazePOXIDE hydrochloride 5 mg / clidinium bromide 2.5 mg oral capsule (1 source)Anticholinergic, BenzodiazepineStart: 92-24-8731wkqv 1 capsule by mouth every eight hourschlordiazePOXIDE-Clidinium 5-2.5 MG 1 capsule before meals Orally Three times a day for 30 day(s) May, Not-Taking chlorhexidine gluconate 20 mg/ml medicated pad (2 sources)Start: 11-28-2022 End: 90-93-8686utubz 1 dose topically every six hoursTopical, Every 6 hours, First dose on Sun11/28/22 at 0100, Pre-Delivery Apply to the affected area.&a mp;nbsp; Clean entire abdomen.cholecalciferol 0.125 mg oral capsule (5 sources)Vitamin DStart: 10-25-2018 End: 31-56-3428jpra 1 capsule by mouth in the morningcholecalciferol, vitamin D3, (VITAMIN D3) 5,000 units capsule Take 1 capsule (5,000 Units total) bymouth in the morning. 0 10/25/2018 09/04/2025 Discontinued ()desogestrel 0.15 mg / ethinyl estradiol 0.03 mg oral tablet (11 sources)Progestin, EstrogenStart: 07-22-2024 End: 61-25-5157nmqhlrnmexo-ethinyl estradiol (Apri) 0.15-30 MG-MCG tablet Indications: Dysmenorrhea, unspecified Take 1 tablet by mouth Daily 21 tablet 12 10/20/2024 01/19/2025 Discontinued (Other)diphenhydrAMINE (BENADryl) injection 25 mg (2 sources)Start: 11-30-2022 End: 75-43-5599yduj 25 mg intravenously every six hours as neededdiphenhydrAMINE (BENADryl) injection 25 mgNorethindrone-E.Estradiol-Iron (1 source)EstrogenStart: 10-17-2017 End: 19-42-6376cjvk 1 tablet by mouth once dailyNorethindrone-E.Estradiol-Iron (Lo Loestrin Fe) 1 mg-10 mcg (24)/10 mcg (2) tablet Discontinued 1 TAB PO Daily October 17, 2017 1:00am March 12, 2019 6:15amEthinyl Estradiol / Norethindrone (7 sources)EstrogenStart: 12-01-2018 End: 32-87-9744dymb 0.05 ug by mouth once in the eveningnorethindrone ac-eth estradiol (MICROGESTIN 1/20) 1-20 mg-mcg per tablet Take 1 tablet by mouth in t he evening. 0 12/01/2018 09/04/2025 Discontinued ()Start: 12-01-2018 take 0.05 ug by mouth once in the eveningnorethindrone ac-eth estradiol (MICROGESTIN 1/20) 1-20 mg-mcg per tablet Take 1 tablet by mouth in the evening. 0 12/01/2018 ActiveStart: 75-97-8350sbht 1 tablet by mouth once dailyDasetta oral tablet 1 tab(s), Oral, Daily, Refill(s) 0, control/menstrual regulation Start Date: 11/23/16 Status: Orderedfamotidine 20 mg oral tablet (2 sources)Histamine-2 Receptor AntagonistStart: 11-30-2022 End: 56-46-7082bvca 20 mg by mouth twice daily as needed for gastroesophageal reflux cecomne15 mg, Oral, 2 times daily PRN, heartburn, Starting on Constance 11/30/22 at 0608, Renal dose per pharmacy for peptic ulcer prophylaxis.ferrous sulfate 325 mg oral tablet (8 sources)Start: 11-30-2022 End: 00-76-3731lngt 325 mg by mouth twice daily at mg, Oral, 2 times daily with meals, First dose on Constance 11/30/22 at 0800, Start if Hgb le ss than 10. End: 37-73-5509druu 1 tablet by mouth in the morningFerrous Sulfate (IRON PO) Take 1 tablet by mouth in the morning. 09/16/2025 Discontinuedtake 1 tablet by mouth in the morningFerrous Sulfate (IRON PO) Take 1 tablet by mouth in the morning. ActiveFLUoxetine 20 mg oral capsule (17 sources)Serotonin Reuptake InhibitorStart: 80-95-4025uvot 1 capsule by mouth once dailyFLUoxetine HCl - 20 MG Oral Capsule TAKE 1 CAPSULE Daily Quantity: 30 Refills: 11 Ordered: 02-Jun-2021 Kuldip DAY Charlene Start : 02-Jun-2021 Active Start: 11-02-2018 End: 24-59-6498xkrj 1 capsule by mouth once dailyFluoxetine (Prozac) 20 mg capsule Discontinued 20 MG PO Daily November 02, 2018 1:00am August 04, 2019 8:19amtake 1 capsule by mouth once dailyFLUoxetine (PROZAC) 10 mg capsule Take 10 mg by mouth once daily. 0 ActiveComment on above:Take 10 mg by mouth once daily.fluticasone propionate 0.05 mg/actuat metered dose nasal spray (16 sources)CorticosteroidStart: 06-22-2025 End: 04-79-9079ship 1 spray(s) nasal route once dailyfluticasone (Flonase) 50 MCG/ACT nasal spray Indications: Sinusitis, unspecified chronicity, unspecified location Administer 1 spray into each nostril Daily Shake gently. Before first use, prime pump. After use, clean tip and replace cap. 16 g 12 06/22/2025 07/15/2025 Discontinued End: 47-05-9573hbdd 1 spray(s) nasal route in the morningfluticasone (Flonase) 50 MCG/ACT nasal spray Administer 1 spray into affected nostril(s) in the morn ing. 09/16/2025 Discontinued End: 39-24-7249yikq 1 spray(s) nasal route in the morningfluticasone propionate (FLONASE) 50 mcg/actuation nasal spray Administer 1 spray into each nostril in the morning. 09/04/2025 Discontinued ()lanolin 1000 mg/ml topical cream (2 sources)Start: 11-30-2022 End: 10-47-2195Vfzmvyb, As needed, dry skin, nipple discomfort, Starting on Sun11/30/22 at 0608, Apply to affected area.500 ml magnesium sulfate 40 mg/ml injection (4 sources)Start: 11-28-2022 End: 53-09-9674rukyopqpx sulfate 20 GM/500ML infusionStart: 11-28-2022 End: 52-69-3213qaerkhrnv sulfate 20 GM/500ML infusion - Pyxis ADS Override Pull metoclopramide 10 mg oral tablet (2 sources)Dopamine-2 Receptor AntagonistStart: 94-76-8205ymvv 1 tablet by mouth every eight hoursReglan 10 MG 1 tablet before meals Orally tid for 30 day(s) March, Not-TakingmiSOPROStol 0.2 mg oral tablet (2 sources)Prostaglandin E1 AnalogStart: 11-30-2022 End: 94-46-5710ehQQEBQIvuu (Cytotec) tablet 1,000 mcgStart: 11-30-2022 End: 35-17-0461ecKOLSOFdtb (Cytotec) tablet 1,000 mcgmiSOPROStol (Cytotec) split tablet 25 mcg (2 sources)Start: 11-28-2022 End: 78-11-2851rwvb 1 tablet vaginal route every four hoursmiSOPROStol (Cytotec) split tablet 25 mcg1 ml morphine sulfate 4 mg/ml injection (4 sources)Opioid AgonistStart: 11-28-2022 End: 31-38-0271pzhrssem sulfate (PF) injection 4 mgnitrofurantoin, macrocrystals 25 mg / nitrofurantoin, monohydrate 75 mg oral capsule (6 sources)Nitrofuran AntibacterialStart: 85-32-7478Meggnukyvgfkot Monohyd Macro 100 MG Oral Capsule TAKE 1 CAPSULE Other Please take one capsule aftersexual intercourse to prevent UTI Quantity: 30 Refills: 11 Ordered: 01-Apr-2021 Teri Chau MD Start : 01-Apr-2021 Active2 ml ondansetron 2 mg/ml injection (12 sources)Serotonin-3 Receptor AntagonistStart: 11-29-2022 End: 43-54-4383jyzq 4 mg intravenously every six hours as needed for nausea and vomitingondansetron (Zofran) injection 4 mgStart: 48-32-9930enan 1 tablet by mouth every six hours as needed for nauseaZofran 4 mg Tab 1 tab(s), Oral, q6hr, PRN Nausea, # 8, Refills(s) 0 Start Date: 07/14/22 Status: Ordered Quantity: 8.0 Unit: Repeat number: 1Start: 88-06-8261wlnb 1 tablet by mouth three times daily Zofran 4 MG 1 tablet Orally THREE TIMES A DAY for 30 day(s) May, Not-Takingondansetron ODT (Zofran-ODT) disintegrating tablet 4 mg (2 sources)Start: 11-30-2022 End: 38-78-8835yysh 1 tablet by mouth every eight hours [...] for 1 hour. Then discontinue.Start: 11-29-2022 End: 26-41-1096yjllgdot (Pitocin) 30 units in 500 mL infusionStart: 11-29-2022 End: 89-44-6460lyhiczrn (Pitocin) 30 units in 500 mL infusionphenazopyridine hydrochloride 200 mg oral tablet (10 sources)Start: 94-53-7537hmel 1 tablet by mouth three times dailyPyridium 200 mg Tab 200 mg = 1 tab(s), Oral, TID, Take one tab by mouth three times a day for threedays, # 9 tab(s), Refills(s) 0, Pharmacy: [facility] [id number], 157, cm, 03/04/21 7:22:00 EDT, Height/Length Dosing, 52, kg, 03/04/21 7:22:00 EDT, Weight Dosing Start Date: 03/04/21 Status: Ordered Quantity: 9.0 Unit: tab(s) Repeat number: 1predniSONE 10 mg oral tablet (3 sources)Start: 09-10-2023 End: 19-82-1426ehye 2 tablets by mouth twice daily, then [...] 09/10/2023 01/10/2024 Discontinued (Therapy completed)Start: 03-12-2019 End: 53-78-4517dhhn 3 tablets by mouth once daily at mealtimePrednisone 20 mg tablet Discontinued 60 MG PO Daily 9 March 12, 2019 12:00am August 04, 2019 8:18am administer with food or milkpromethazine hydrochloride 12.5 mg oral tablet (13 sources)PhenothiazineStart: 05-25-2025 End: 01-97-6292jgum 1 tablet by mouth every six hours [...] nausea. 30 tablet 2 508/ Discontinued End: 84-69-4403ewhq 12.5 mg rectal route every six hours as needed for nausea and vomitingpromethazine (PHENERGAN) 12.5 mg suppository Insert 1 suppository (12.5 mg total) into the rectum every 6 (six) hours as needed for nausea or vomiting. 09/04/2025 Discontinued ()rizatriptan 5 mg disintegrating oral tablet (5 sources)Serotonin-1b and Serotonin-1d Receptor AgonistStart: 10-24-2018 End: 65-12-8033ezpyhzkamby CROSS CUT SAWYER (MAXALT-CROSS CUT SAWYER) 5 mg disintegrating tablet Dissolve 1 tablet (5 mg total) on tongue asneeded. 0 10/24/2018 09/04/2025 Discontinued ()5 ml sodium chloride 9 mg/ml injection (2 sources)Start: 11-28-2022 End: mL, IntraVENous, Every 12 hours scheduled (2 times per day), First dose on Sun11/28/22 at 0900, Pre-Deliveryvitamin b12 1 mg extended release oral tablet (5 sources)Vitamin E77Whmjg: 10-25-2018 End: 33-10-6758vfrt 1 tablet by mouth in the morningcyanocobalamin, vitamin B- 12, (VITAMIN B-12) 1,000 mcg tablet extended release Take 1 tablet (1 mg total) by mouth in the morning. 0 10/25/2018 09/04/2025 Discontinued ()witch yesi 500 mg/ml medicated pad (2 sources)Start: 11-30-2022 End: 63-96-8681Nzitbuh, As needed, hemorrhoids, For perineal pain or discomfort, Starting on Sun11/30/22 at 0608, Apply to perineal area. Patient is capable and may self administer at bedside. Problems Active Problems Problem ClassificationProblemDateDocumented DateEpisodic/ChronicAllergic reactions (1 source)Allergic reaction; Translations: [Allergy, unspecified, initial encounter]48-46-3739GtylaysoLtkgxvt on above:Problem List clean-up per request of Phys. EHR CmteAnxiety disorders (20 sources)Anxiety; Translations: [Anxiety state, unspecified]Onset: 10-08-2020 86-62-7121AtedihjUsuqagu on above:Problem List clean-up per request of Phys. EHR CmteCardiac dysrhythmias (20 sources)Paroxysmal tachycardia; Translations: [Paroxysmal tachycardia, unspecified]Onset: 328319-07-9666ZvklmmzRmdqptdtihzqb of surgical procedures or medical care (1 source)Postoperative retention of urine; Translations: [Other postprocedural complications and disorders of genitourinary system]12-61-4171OvpnllduYkbcetl on above:Problem List clean-up per request of Phys. EHR CmteDiabetes mellitus without complication (2 sources)Abnormal glucose tolerance test; Translations: [Other abnormal glucose]49-08-0438WaxqpjtlRydjytmj or abnormal glucose tolerance complicating ; childbirth; or the puerperium (20 sources)Gestational diabetes mellitus; Translations: [Gestational diabetes mellitus in , diet controlled]Onset: 221626-36-0553Iuvwxsbh Endometriosis (20 sources)Endometriosis (clinical); Translations: [Endometriosis, site unspecified]Onset: 50-31-7616PrasfvwOwadbhlld hypertension (20 sources)Hypertensive disorder; Translations: [Essential (primary) hypertension]Onset: 907248-64-9766RcawkcqQkkqljfovwdij symptoms and ill- defined conditions (20 sources)Microscopic hematuria; Translations: [Nocturia]50-30-8434Joffkgyf Comment on above:Problem List clean-up per request of Phys. EHR CmteHeadache; including migraine (20 sources)Migraine; Translations: [Migraine, unspecified, not intractable, without status migrainosus]Onset: 852783-10-0979HmqayeyIcslzwv on above: Problem List clean-up per request of Phys. EHR CmteHeadache; including migraine (14 sources)Headache; Translations: [Headache, unspecified]Onset: 01-31-2023 29-48-5060ClddmczxYurycctmsze (1 source)Hemorrhoids; Translations: [Unspecified hemorrhoids]Onset: 07-14-2022 EpisodicHypertension complicating ; childbirth and the puerperium (20 sources)Hypertension complicating ; Translations: [Unspecified maternal hypertension, unspecified trimester]Onset: hronic Hypertension complicating ; childbirth and the puerperium (16 sources)Severe pre-eclampsia complicating childbirth; Translations: [Severe pre-eclampsia, third trimester]Onset: 88-45-2440KqnjldhpVjrdt disorders and dislocations; trauma-related (20 sources)Disorder of left patellofemoral joint; Translations: [Patellofemoral disorders, left knee]Onset: 750666-30-7969TkldadeYeabh disorders and dislocations; trauma-related (20 sources)Disorder of right patellofemoral joint; Translations: [Patellofemoral disorders, right knee]Onset: hronic Menstrual disorders (20 sources)Dysmenorrhea; Translations: [Dysmenorrhea, unspecified]Onset: 159164-76-5892TzfodpiDvbdgg and vomiting (1 source)Nausea and vomiting; Translations: [Nausea with vomiting, unspecified] EpisodicNonspecific chest pain (2 sources)Chest pain; Translations: [Chest pain, unspecified]07-15-6879Uwrnadqc Comment on above:Problem List clean-up per request of Phys. MIKAYLA CmteNutritional deficiencies (20 sources)Vitamin D deficiency; Translations: [Vitamin D deficiency, unspecified]Onset: 056004-99-1705CdenmhuMdsku acquired deformities (20 sources)Scoliosis deformity of spine; Translations: [Scoliosis, unspecified] Onset: 973519-37-5093VhyyqtfObkcc bone disease and musculoskeletal deformities (10 sources)Disorder of pfhx20-47-7339AzsktkohRdyevze on above:right shoulder right shoulderOther circulatory disease (1 source)Elevated blood-pressure reading without diagnosis of hypertension; Translations: [Elevated blood-pressure reading, without diagnosis of hypertension]Onset: 84-83-8144PwgtqmtiVjqsa complications of ; puerperium affecting management of mother (1 source)Delayed AND/OR secondary hemorrhage; Translations: [Delayed and secondary hemorrhage]Onset: 59-30-0315BsvhiulmCynhm complications of (1 source)Finding related to ; Translations: [Other specified related conditions, unspecified trimester]Onset: 76-59-2850MecmyocrUmwaw complications of (1 source)Supervision of with other poor reproductive or obstetric history, unspecified trimester; Translations: [Supervision of with other poor reproductive or obstetric history, unspecified trimester]Onset: 10-66-5312GolvucsdLykxr connective tissue disease (1 source)Diastasis recti; Translations: [Separation of muscle (nontraumatic), other site]EpisodicOther female genital disorders (10 sources)Abnormal uterine fxmgpuom26-17-7647FslcimtOluiz female genital disorders (1 source)Dyspareunia; Translations: [Other specified dyspareunia]ChronicOther female genital disorders (20 sources)Pain in female genitalia on intercourse; Translations: [Unspecified dyspareunia]Onset: 114041-36-0775YzhdwtwIwxgz female genital disorders (1 source)Unspecified dyspareunia; Translations: [Unspecified dyspareunia]Onset: 68-77-9262LtfqtwyIkyop female genital disorders (2 sources)Pelvic floor dysfunction; Translations: [Other specified conditions associated with female genital organs and menstrual cycle]EpisodicOther gastrointestinal disorders (18 sources)Constipation; Translations: [Constipation, unspecified]Onset: 449494-79-6938ElueodraXynqhuv on above:Problem List clean-up per request of Phys. EHR CmteOther gastrointestinal disorders (1 source)Constipation, unspecified; Translations: [Constipation, unspecified] Onset: 72-56-7371SdphmgliJmzzo hereditary and degenerative nervous system conditions (20 sources)Finding of scapular structure; Translations: [Other specified extrapyramidal and movement disorders]Onset: 076094-91-7468UqiulnmTwzlk nervous system disorders (9 sources)Chronic pain; Translations: [Other chronic pain]Onset: 03-29-2023 32-39-6246ItbeoopWsjbe nervous system disorders (1 source)Other chronic pain; Translations: [Chronic pelvic pain in female] Onset: 84-90-2890SfflmnmAwnac nervous system disorders (1 source)Paresthesia of left upper limb; Translations: [Paresthesia of skin] 25-47-5300ZgrkyhtaKdwsvne on above:Problem List clean-up per request of Phys. EHR CmteOther nervous system disorders (1 source)Tremor; Translations: [Tremor, unspecified]18-41-9571EhahoqdlWpnhcvq on above:Problem List clean-up per request of Phys. EHR CmteOther nutritional; endocrine; and metabolic disorders (20 sources)Body mass index 30+ - obesity; Translations: [Obesity, unspecified] Onset: 466617-94-4531TrbuahnUoqmw and delivery including normal (18 sources); Translations: [Encounter for supervision of normal , unspecified, unspecified trimester]16-09-4087TajmnonlJpjws screening for suspected conditions (not mental disorders or infectious disease) (8 sources)Elevated liver enzymes level; Translations: [Other specified abnormal findings of blood chemistry]Onset: 04-18-2022 Resolved: 04-05-6000LmhfvdyeHzjfi upper respiratory disease (20 sources)Allergic rhinitis due to pollen; Translations: [Allergic rhinitis due to pollen]Onset: 313425-72-7070DcngpstVyady upper respiratory infections (2 sources)Sinusitis; Translations: [Chronic sinusitis, unspecified]06-22-2025 ChronicResidual codes; unclassified (2 sources)Contraception ; Translations: [Other specified health status] 37-74-1151FqixujfwFzvlezzm codes; unclassified (2 sources)Gestation period, 13 weeks; Translations: [13 weeks gestation of ]90-96-0627IyldkdsoTtvxzhaj codes; unclassified (2 sources)Gestation period, 17 weeks; Translations: [17 weeks gestation of ]90-71-9637CgxwumeaJibzupbo codes; unclassified (2 sources)Gestation period, 20 weeks; Translations: [20 weeks gestation of ]68-89-4629VworeiwfLfrnckeb codes; unclassified (2 sources)Gestation period, 24 weeks; Translations: [24 weeks gestation of ]72-59-2647XkeenwufPbfhjsid codes; unclassified (2 sources)Gestation period, 26 weeks; Translations: [26 weeks gestation of ]13-79-4012YcgweulaGxdeeqda codes; unclassified (2 sources)Gestation period, 27 weeks; Translations: [27 weeks gestation of ]47-18-4962OeibneavCotoihps codes; unclassified (1 source)Gestation period, 28 weeks; Translations: [28 weeks gestation of ]78-72-6651GgulzxqtSvzznkli codes; unclassified (1 source)28 weeks gestation of ; Translations: [28 weeks gestation of ]Onset: 95-82-2761KiofjulyMnjbmooi codes; unclassified (2 sources)Gestation period, 29 weeks; Translations: [29 weeks gestation of ]24-05-4954LamdahqoPmjavzob codes; unclassified (2 sources)Gestation period, 31 weeks; Translations: [31 weeks gestation of ]59-02-6668JqhvhohhTtoawapzfwp; intervertebral disc disorders; other back problems (20 sources)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; Translations: [Other cervical disc displacement, unspecified cervical region] Onset: 381718-27-1021ItuggvuWrvxxepxyfbg (1 source)MFM consultOnset: 80-40-2579Yrzphmqfengq (1 source)Gestational DiabetesOnset: 33-47-8516Zmaqcgj tract infections (20 sources)Recurrent urinary tract infection; Translations: [Urinary tract infection, site not specified]Onset: 848232-39-7251Gbxityhr Past or Other Problems Problem ClassificationProblemDateDocumented DateEpisodic/ChronicAbdominal pain (20 sources)Epigastric pain; Translations: [Epigastric pain]Onset: 07-14-2022 EpisodicAcquired foot deformities (20 sources)Acquired equinus deformity of foot; Translations: [Other acquired deformities of unspecified foot]Onset: 496461-81-3786LpuerqgtYayahdh dysrhythmias (20 sources)Tachycardia; Translations: [Tachycardia, unspecified]Onset: 903107-51-9087SnuobrwqZxzxvzglhzf deficiencies (20 sources)Cobalamin deficiency; Translations: [Deficiency of other specified B group vitamins]Onset: 368209-04-7088WepospqnUiscz connective tissue disease (20 sources)Posterior calcaneal exostosis; Translations: [Calcaneal spur, unspecified foot]Onset: 106131-98-1615TkpvsucmWebck disorders of stomach and duodenum (20 sources)Gastroparesis syndrome; Translations: [Gastroparesis]Onset: 362973-38-4866SvgpgacnLroph female genital disorders (1 source)Other specified conditions associated with female genital organs and menstrual cycle; Translations:[High-tone pelvic floor dysfunction]Onset: 45-41-5326PodnqusbGisya female genital disorders (20 sources)Chronic pelvic pain of female; Translations: [Chronic pelvic pain in female]Onset: 751690-32-0652QbajjvkqTwbvp gastrointestinal disorders (20 sources)Swallowing painful; Translations: [Dysphagia, unspecified]Onset: 897435-00-8787EmmsrxqmCkjdo gastrointestinal disorders (20 sources)Diarrhea; Translations: [Diarrhea, unspecified]Onset: 03-24-2025 75-32-7726FjhjfcirQsnqn non-traumatic joint disorders (20 sources)Chronic pain of right upper limb; Translations: [Pain in right shoulder]Onset: 742197-88-7732CkjxjasqWpbxi nutritional; endocrine; and metabolic disorders (16 sources)Loss of appetite; Translations: [Anorexia]Onset: 05-27-2020 39-02-4275XxdhvnceDtgpfsn (15 sources)Vasovagal syncope; Translations: [Syncope and collapse]Onset: 666320-95-7567UjpaqdezSwoudjqzricc (9 sources)PregnancyOnset: 07-14-2022 Resolved: 883076-89-7717GERAJUN: Highlighted row has been ruled out! Unclassified (1 source)No known active pjwkukak23-48-5664 Results Test NameValueInterpretationReference RangeFacilityUS OB BPP W NON-STRESS on 38-23[place]6006[place], [place] [address] Ultrasound Report Signed Patient: JHUI GAMA MR#: [id number] : 1995 Acct:[id number] Age/Sex: 30 / F ADM Date: 10/03/25 Loc: US Attending Dr: Steph Keane Ordering Physician: Steph Keane Date of Service: 10/03/25 Procedure(s): US OB BPP w non-stress Accession Number(s): [id number] cc: Steph Keane; KAFTAN,G KENNETH The [address] [address] Patient Name: JUHI GAMA MRN: [facility]:[id number] date: 1995 Sex: F Assigned Patient Location: [place] Current Patient Location: Accession/Order Number: [id number] Exam Date: 10/03/2025 10:53 Report Date: 10/03/2025 [...] Faria M.D. 10/03/2025 11:36 AM Dictation Location: [place] [address] Electronically authenticated by: [id number] Y Date: 10/03/2025 11:36 Dictated By: Will Faria M.D. Signed By: 10/03/25 1138 DD/ 1136 TD/TT: Hose Mender:TBHRadiology, Radiologist, MD - 10/03/2025 [place] [address] Ultrasound Report Signed Patient: JUHI GAMA MR#: [id number] : 1995 Acct:[id number] Age/Sex: 30 / F ADM Date: 10/03/25 Loc: US Attending Dr: Steph Keane Ordering Physician: Steph Keane Date of Service: 10/03/25 Procedure(s): US OB BPP w non-stress Accession Number(s): [id number] cc: Steph Keane; Yomaira BELTRAN [place] [id number] Patient Name: JUHI GAMA MRN: [id number] date: 1995 Sex: F Assigned Patient Location: [place] Current Patient Location: Accession/Order Number: [id number] Exam Date: 10/03/2025 10:53 Report Date: 10/03/2025 [...] Faria M.D. 10/03/2025 11:36 AM Dictation Location: [place] [address] Electronically authenticated by: [id number] Y Date: 10/03/2025 11:36 Dictated By: Will Faria M.D. Signed By: 10/03/25 1138 DD/ 1136 TD/TT: Hose Mender: [facility] HealthcareRadiology Study observation (narrative)N[facility] HealthcareUS OB BPP W NON-STRESSOrdered By: Radiologist Radiology on 99-28-4753[facility] Work Phone: Urinalysis macro (dipstick) panel (U)on 09-30-2025 Bilirubin, UANegativeNegative - 4(70) +++ mg/dLNOMS HealthcareBlood, UANegative Negative - 50 Teodoro/mcLNOMS HealthcareClarity, UAClearNOMS HealthcareColor, UA YellowNOIL HealthcareGlucose, UANegativeNegative - 2000(110) ++++ mg/dLNOIL HealthcareInterpretation and review of laboratory resultsNormalNOSt. [facility] Ketones, UANegativeNegative - 160(16) ++++ mg/dLNOIL HealthcareLeukocytes, UA NegativeNegative - 500+++ Robinson/mcLNOIL HealthcareNitrite, UANegativeNegative - PositiveNOIL HealthcarepH, UA6.05 - 9NOIL HealthcareProtein, UANegativeNegative - 2000(20) ++++ mg/dLNOIL HealthcareSpec Grav, UA1.0101 - 1.03NOIL Healthcare Urobilinogen, UA1.00.2 - 12 mg/dLNOUniversity of [facility] Children's Hospital HealthcareUS OB BPP W NON-STRESSon 50-89-5506[place], [place] [address] Ultrasound Report Signed Patient: JUHI GAMA MR#: [id number] : 1995 Acct:[id number] Age/Sex: 30 / F ADM Date: 09/26/25 Loc: US Attending Dr: Steph Keane Ordering Physician: Steph Keane Date of Service: 09/26/25 Procedure(s): US OB BPP w non-stress Accession Number(s): [id number] cc: Steph Keane; Yomaira BELTRAN [place] [phone] Patient Name: JUHI GAMA MRN: [facility]:[id number] date: 1995 Sex: F Assigned Patient Location: Current Patient Location: Accession/Order Number: [id number] Exam Date: 09/26/2025 11:50 Report Date: 09/26/2025 14:50 At the request of: STEPH KEANE Procedure: US OB BPP w non-stress Ultrasound biophysical profile INDICATION: -induced hypertension COMPARISON: 09/19/2025 FINDINGS IMPRESSION: Cephalic position. 8 out of 8 score biophysical profile. LEONEL 11.6 cm. heart 129 bpm Impression dictated by: Chu Amaya M.D. 09/26/2025 2:50 PM Dictation Location: RADIO-PC-29 Electronically authenticated by: [id number] Y Date: 09/26/2025 14:50 Dictated By: Chu Amaya M.D. Signed By: 09/26/25 1452 DD/ 49 TD/TT: Hose Mender:TBHRadiology, Radiologist, - 09/26/2025 [place] [address] Ultrasound Report Signed Patient: JUHI GAMA MR#: [id number] : 1995 Acct:[id number] Age/Sex: 30 / F ADM Date: 09/26/25 Loc: US Attending Dr: Steph Keane Ordering Physician: Steph Keane Date of Service: 09/26/25 Procedure(s): US OB BPP w non-stress Accession Number(s): [id number] cc: Le Keane G ROBERT [place] [address] Patient Name: JUHI GAMA MRN: [facility]:[id number] date: 1995 Sex: F Assigned Patient Location: Current Patient Location: Accession/Order Number: [id number] Exam Date: 09/26/2025 11:50 Report Date: 09/26/2025 14:50 At the request of: STEPH KEANE Procedure: US OB BPP w non-stress Ultrasound biophysical profile INDICATION: -induced hypertension COMPARISON: 09/19/2025 FINDINGS IMPRESSION: Cephalic position. 8 out of 8 score biophysical profile. LEONEL 11.6 cm. heart 129 bpm Impression dictated by: Chu Amaya M.D. 09/26/2025 2:50 PM Dictation Location: RADIO-PC-29 Electronically authenticated by: [id number] Y Date: 09/26/2025 14:50 Dictated By: Chu Amaya M.D. Signed By: 09/26/25 145 DD/ 145 TD/TT: Hose Mender: LANETTE HealthcareRadiology Study observation (narrative)NOM[facility] HealthcareUS OB BPP W NON-STRESSOrdered By: Radiologist Radiology on 48-59-0359ZRLL Healthcare Work Phone: US OB BPP W NON-STRESSon 47-80-5547WhjVer[place], [place] [address] Ultrasound Report Signed Patient: JUHI GAMA MR#: [id number] : 1995 Acct:[id number] Age/Sex: 30 / F ADM Date: 09/19/25 Loc: US Attending Dr: Steph Keane Ordering Physician: Steph Keane Date of Service: 09/19/25 Procedure(s): US OB BPP w non-stress Accession Number(s): [id number] cc: Steph Keane; Yomaira BELTRAN [place] [phone] Patient Name: JUHI GAMA MRN: [facility]:[id number] date: 1995 Sex: F Assigned Patient Location: [facility] Current Patient Location: Accession/Order Number: [id number] Exam Date: 09/19/2025 10:06 Report Date: 09/19/2025 [...] Morillo M.D. 09/19/2025 12:17 PM Dictation Location: Striiv Electronically authenticated by: [id number] Y Date: 09/19/2025 12:17 Dictated By: Jp Morillo D.O. Signed By: 09/19/25 1219 DD/ 16 TD/TT: Hose Mender:SATNAMadiolRandell malagon, - 09/19/2025 [place] [id number] Ultrasound Report Signed Patient: JUHI GAMA MR#: [id number] : 1995 Acct:[id number] Age/Sex: 30 / F ADM Date: 09/19/25 Loc: US Attending Dr: Steph Keane Ordering Physician: Steph Keane Date of Service: 09/19/25 Procedure(s): US OB BPP w non-stress Accession Number(s): [id number] cc: Steph Keane; Yomaira BELTRAN [place] [phone] Patient Name: JUHI GAMA MRN: [facility]:[id number] date: 1995 Sex: F Assigned Patient Location: [facility] Current Patient Location: Accession/Order Number: [id number] Exam Date: 09/19/2025 10:06 Report Date: 09/19/2025 [...] Morillo M.D. 09/19/2025 12:17 PM Dictation Location: V WaveGaosouyi Electronically authenticated by: [id number] Y Date: 09/19/2025 12:17 Dictated By: Jp Morillo D.O. Signed By: 09/19/25 1219 DD/ 16 TD/TT: Hose Mender: LANETTE HealthcareRadiology Study observation (narrative)NOMS HealthcareUS OB BPP W NON-STRESSOrdered By: Radiologist Radiology on 81-68-3714XZLNSamaritan Hospital Work Phone: Urinalysis macro (dipstick) panel (U)on 09-16-2025 Bilirubin, UANegativeNegative - 4(70) +++ mg/dLSamaritan HospitalBlood, UANegative Negative - 50 Teodoro/mcLSamaritan HospitalClarity, UAClearNOIL HealthcareColor, UA YellowNOSt. Louis VA Medical CenterGlucose, UANegativeNegative - 2000(110) ++++ mg/dLSamaritan HospitalInterpretation and review of laboratory resultsNormalSamaritan Hospital Ketones, UANegativeNegative - 160(16) ++++ mg/dLSamaritan HospitalLeukocytes, UA NegativeNegative - 500+++ Robinson/LTAC, [facility] within [facility] DowntownNitrite, UANegativeNegative - PositivePRIMARY CHILDREN'S [facility] HealthcarepH, UA6.05 - 9NOIL HealthcareProtein, UANegativeNegative - 2000(20) ++++ mg/dLSamaritan HospitalSpec Grav, UA1.0101 - 1.03[facility] Urobilinogen, UA1.00.2 - 12 mg/dLKansas City VA Medical Center HealthcareALL BUNon 16-50-0773Pcys nitrogen [Mass/Vol]8 mg/dL7.0 - 18.0 mg/dLBoone Hospital Center URIC ACIDon 18-73-2763Heocn [Mass/Vol]3.5 mg/dL2.6 - 6.0 mg/dLSamaritan HospitalCC ALT on 78-73-7473FUZ [Catalytic activity/Vol]40 U/L14 - 59 U/[facility] CenterCCF AST on 31-95-1287QDD [Catalytic activity/Vol]24 U/L15 - 37 U/[facility] CenterNo Panel Informationon 69-23-5783Yksywcnxuklhix and review of laboratory results AbnormalNOSt. Louis VA Medical CenterCLINISYNCNRay County Memorial HospitalTB CREATININEon 09-03-2025 Creatinine [Mass/Vol]0.42 mg/dLLow0.55 - 1.02 mg/dLSamaritan HospitalGFR/1.73 sq M.predicted CKD-EPI (S/P/Bld) [Vol rate/Area]>60>=60 mL/min/1.73m 2NRay County Memorial HospitalTB EGFR-NON AF HUNGARIAN>60>=60 mL/min/1.73m 2NOMS HealthcareTB URINE T PROTEIN CREAT RATIOon 94-01-5959OGISBCOOHT URINE RANDOM<13.47Vlf72.00 - 300.00 mg/dLNOIL HealthcareTOTAL PROTEIN URINE RANDOM<6.0NINF - 11.9 mg/dLPRIMARY CHILDREN'S [facility]OSPITAL HealthcareUrinalysis macro (dipstick) panel (U)on 57-67-6886Znerfjflv, UA NegativeNegative - 4(70) +++ mg/dLPRIMARY CHILDREN'S [facility]OS[facility]ITAL HealthcareBlood, UANegativeNegative - 50 Teodoro/mcLPRIMARY CHILDREN'S [facility]OSPITAL HealthcareClarity, UAClearNOIL HealthcareColor, UAYellowNOIL HealthcareGlucose, UANegativeNegative - 2000(110) ++++ mg/dLPRIMARY CHILDREN'S [facility]ITAL Healthcare Interpretation and review of laboratory resultsNormalPR[facility] HealthcareKetones, UA NegativeNegative - 160(16) ++++ mg/dLPRIMARY CHILDREN'S [facility] HealthcareLeukocytes, UANegative Negative - 500+++ Robinson/LTAC, [facility] within [facility] DowntownNitrite, UANegativeNegative - Positive NOM HealthcarepH, UA6.55 - 9NOIL HealthcareProtein, UANegativeNegative - 2000(20) ++++ mg/dLPRIMARY CHILDREN'S [facility]OS[facility]ITAL HealthcareSpec Grav, UA1.0051 - 1.03NOIL Healthcare Urobilinogen, UA2.00.2 - 12 mg/dLSt. Luke's HospitalTB TOTAL PROTEIN 24 HOUR URINEon 53-48-5698Rgcmjmcrxvkels and review of laboratory results AbnormalNOIL HealthcareProtein (U) [Mass/Vol]22.6 mg/dLHighNINF - 11.9 mg/dLSamaritan HospitalTB TOTAL PROTEIN 24 HOUR NXPUS460.6NINFNOSt. Louis VA Medical CenterTOTAL VOLUME 24 HOUR IEPNE545gQ/24hrNOIL HealthcareCLINISYNCNINTEGRIS BAPTIST [facility] HealthcareALL CBC WITH AUTO DIFFon 82-91-0867LLHPKWKLH ABSOLUTE AUTO0.1NOMS HealthcareBasophils/100 WBC (Bld)0.5 %0.2 - 2.0 %NOMS HealthcareEosinophils/100 WBC (Bld)1.4 %0.9 - 7.0 % [facility] HealthcareErythrocyte distribution width (RBC) [Ratio]13 %11.0 - 15.0 %[facility] HealthcareHematocrit (Bld) [Volume fraction]34.4 %Low36.0 - 48.0 %[facility]itan HospitalHemoglobin (Bld) [Mass/Vol]11.3 g/dLLow12.0 - 16.0 g/dLSamaritan Hospital IMMATURE GRANULOCYTES ABS AUTO0.59HighNOIL HealthcareImmature granulocytes/100 WBC (Bld)4.4 %High0.0 - 0.5 %[facility]itan HospitalInterpretation and review of laboratory resultsAbnormalNOIL HealthcareLYMPHOCYTES ABSOLUTE AUTO2.4NOIL HealthcareLymphocytes/100 WBC (Bld)17.8 %Low20.5 - 60.0 %[facility]ox MonettH (RBC) [Entitic mass]29.4 pg26.7 - 34.0 pgNOSaint Mary's Hospital of Blue SpringsHC (RBC) [Mass/Vol] 32.8 g/dL29.9 - 35.2 g/dLSamaritan HospitalMCV (RBC) [Entitic vol]89.4 fL81.0 - 99.0 fLSamaritan HospitalMONOCYTES ABSOLUTE AUTO1.1HighNOIL HealthcareMonocytes/100 WBC (Bld)8.1 %1.7 - 12.0 %[facility] HospitalNEUTROPHILS ABSOLUTE ZEEF9AvsyPVYO HealthcareNeutrophils/100 WBC (Bld)67.8 %43.0 - 75.0 %[facility]aritan HospitalPlatelet mean volume (Bld) [Entitic vol]9.6 fL9.5 - 13.5 fLSamaritan HospitalTBH EO #0.2NOMS [facility] CenterTB FRL162XUTG [facility] RBC3.85LowNOMS [facility] WBC13.3High Samaritan HospitalCLINISYNEdgefield County HospitalTB URINE T PROTEIN CREAT RATIOon 92-65-2825KNIZYQYSNC URINE RANDOM<13.24Zae48.00 - 300.00 mg/dLSamaritan Hospital Interpretation and review of laboratory resultsAbnormalSamaritan HospitalTOTAL PROTEIN URINE RANDOM<6.0NINF - 11.9 mg/dLSamaritan HospitalCLINISYNEdgefield County Hospital US OB BPP W NON-STRESSon 46-86-2714[address] [address] Ultrasound Report Signed Patient: JUHI GAMA MR#: [id number] : 1995 Acct:[id number] Age/Sex: 30 / F ADM Date: Loc: [facility] 250-[address]: KUNAL HYATT M.D. Ordering Physician: Steph eKane Date of Service: 08/27/25 Procedure(s): US OB BPP w non-stress Accession Number(s): [id number] cc: Steph Keane; Yomaira BELTRAN [place] [address] Patient Name: JUHI GAMA MRN: [facility]:[id number] date: 1995 Sex: F Assigned Patient Location: LAB Current Patient Location: LAB Accession/Order Number: [id number] Exam Date: 08/27/2025 17:37 Report Date: 08/27/2025 [...] Morillo M.D. 08/27/2025 6:02 PM Dictation Location: [place] [address] Electronically authenticated by: [id number] Y Date: 08/27/2025 18:02 Dictated By: Jp Morillo D.O. Signed By: 08/27/251804 DD/ 01 TD/TT: Hose Mender:SATNAMadiology, Radiologist, MD - 08/27/2025 [place] [address] Ultrasound Report Signed Patient: JUHI GAMA MR#: [id number] : 1995 Acct:[id number] Age/Sex: 30 / F ADM Date: Loc: [facility] 250-[address]: KUNAL HYATT M.D. Ordering Physician: Steph Keane Date of Service: 08/27/25 Procedure(s): US OB BPP w non-stress Accession Number(s): [id number] cc: Steph Keane; Yomaira BELTRAN [place] [phone] Patient Name: JUHI GAMA MRN: [facility]:[id number] date: 1995 Sex: F Assigned Patient Location: LAB Current Patient Location: LAB Accession/Order Number: [id number] Exam Date: 08/27/2025 17:37 Report Date: 08/27/2025 [...] Morillo M.D. 08/27/2025 6:02 PM Dictation Location: [place] [address] Electronically authenticated by: [id number] Y Date: 08/27/2025 18:02 Dictated By: Jp Morillo D.O. Signed By: 08/27/251804 DD/ 01 TD/TT: Hose Mender: LANETTE HealthcareRadiology Study observation (narrative)NOMShalonda SmallUS OB BPP W NON-STRESSOrdered By: Radiologist Radiology on 91-11-4152T[facility] Work Phone: Urinalysis macro (dipstick) panel (U)on 08-27-2025 Bilirubin, UANegativeNegative - 4(70) +++ mg/dLNOMS HealthcareBlood, UANegative Negative - 50 Teodoro/mcLNOMS HealthcareClarity, UAClearNOMS HealthcareColor, UA YellowNOMS HealthcareGlucose, UANegativeNegative - 2000(110) ++++ mg/dLNOMS HealthcareInterpretation and review of laboratory resultsNormalSamaritan Hospital Ketones, UANegativeNegative - 160(16) ++++ mg/dLPRIMARY CHILDREN'S [facility] HealthcareLeukocytes, UA NegativeNegative - 500+++ Robinson/mcLNOIL HealthcareNitrite, UANegativeNegative - PositiveNOIL HealthcarepH, UA65 - 9NOIL HealthcareProtein, UANegativeNegative - 2000(20) ++++ mg/dLPRIMARY CHILDREN'S [facility]ITAL HealthcareSpec Grav, UA1.0151 - 1.03NOIL Healthcare Urobilinogen, UA2.00.2 - 12 mg/dLNOIL HealthcareNOIL HealthcareURINE CULTURE, ROUTINEon 19-12-5819Wcqzsumy identified Cx Nom (U) Urine Culture, Routine NOMS HealthcareBacteria identified Cx Nom (U)Mixed urogenital floraNOIL HealthcareBacteria identified Cx Nom (U)25,000-50,000 colony forming units per mLNOMS HealthcareBacteria identified Cx Nom (U)Performed at: - [facility] NOMS HealthcareBacteria identified Cx Nom (U)[address] [place] [address] [id number] HealthcareBacteria identified Cx Nom (U)Solo Musician: Cm Sandoval PhD, Phone: [phone] HealthcareCLINISYNWESTWOOD LODGE HOSPITAL Zlcirojprd5wy hr Glucose Tolerance 100 gm loadon 57-43-8281Axfnuzc Tolerance Test 2 Ifsu215 [facility] Ahuja Medical CenterCapillary Glucose POCon 35-76-8947Sbaxlat [Mass/Vol]88 mg/qJKbudyr83-31VuiaicKettering HealthComment on above:Performed By: #### [id number] #### [facility] [address] [place], [place] [address]Dmn 1 Hron 00-79-1008Fxltgky [Mass/Vol]152 mg/xJKxbxga82-275 Kettering HealthComment on above:Performed By: #### [id number] #### [facility] [address] [place], [place] [address]Oma 2 Hron 91-99-5834Ixtpfla [Mass/Vol]169 mg/yXHgbj45-800 Kettering HealthComment on above:Performed By: #### [id number] #### [facility] [address] [place], [place] [address]Pcq 3 Hron 62-52-8268Yaisefn [Mass/Vol]141 mg/iCQbkz45-444 Kettering HealthComment on above:Performed By: #### [id number] #### [facility] [address] [place], [place] [address]Vsz Fastingon 25-63-0492Qyamdoj [Mass/Vol]82 mg/zKZqddvx32-11 Kettering HealthComment on above:Performed By: #### [id number] #### [facility] [address] [place], [place] [address]Txfqtmb tolerance, 1 houron 83-08-6796Tdmhurd Tolerance Test 1 Ilzi503VjbGjsnmg Health SystemGlucose tolerance, 3 hourson 05-36-6975Gndlncp Tolerance Test 3 Bnug271NznAmqars Health SystemGlucose, tolerance fastingon 60-68-6369Xrjvjov Tolerance Test Jzvwuql75PkwPmerbm Health SystemNo Panel Informationon 05-49-8303RghKtlyeqUniversity Hospitals Ahuja Medical CenterCBC w/ Auto Diffon 08-12-2025 Basophil Absolute0.1 E9/LNormal0.0-0.2[facility] Cross HospitalComment on above:Performed By: #### [id number] #### [facility] [address] [place] [address]Bgbhtpbth/100 WBC (Bld)0.6 %Normal0.0-2.0Kettering HealthComment on above:Performed By: #### [id number] #### [facility] [address] [place], [place] [address]Lyt Absolute0.1 E9/LNormal0.0-0.5[facility] Comment on above:Performed By: #### [id number] #### [facility] [address] [place] [address]Snehnvtqvaz/100 WBC (Bld)1.0 %Normal0.0-8.0Kettering HealthComment on above:Performed By: #### [id number] #### [facility] [address] [place], [place] [address]Mqhmxmyvjgo distribution width (RBC) [Ratio]12.9 %Normal 10.9-14.2FCleveland Clinic Marymount HospitalComment on above:Performed By: #### [id number] #### [facility] [address] [place], [place] [address]Bkyjxzjwyz (Bld) [Volume fraction]33.1 %Low34.0-46.0Kettering HealthComment on above:Performed By: #### [id number] #### [facility] [address] [place], [place] [address]Uimoukzksj (Bld) [Mass/Vol]11.4 g/dLLow12.0-16.0Kettering HealthComment on above:Performed By: #### [id number] #### [facility] [address] [place] [address]Nzzou Absolute2.0 E9/LNormal1.0-4.0[facility] Comment on above:Performed By: #### [id number] #### [facility] [address] [place], [place] [address]Ukdmujcguik/100 WBC (Bld)19.6 %Gazhsa04.0-50.0Kettering HealthComment on above:Performed By: #### [id number] #### [facility] [address] [place], [place] [address]NZX (RBC) [Entitic mass]29.9 dpRnyjat75.0-34.0Kettering HealthComment on above:Performed By: #### [id number] #### [facility] [address] [place], [place] [address]UJXR (RBC) [Mass/Vol]34.4 g/bQCqmygo94.4-36.0Kettering HealthComment on above:Performed By: #### [id number] #### [facility] [address] [place], [place] [address]ZCH (RBC) [Entitic vol]86.7 zUWylidh32.0-100.0Kettering HealthComment on above:Performed By: #### [id number] #### [facility] [address] [place], [place] [address]Aqhx Absolute0.5 E9/LNormal0.2-1.0[facility] Comment on above:Performed By: #### [id number] #### [facility] [address] [place], [place] [address]Pawjbkohx/100 WBC (Bld)4.6 %Normal4.0-14.0Kettering HealthComment on above:Performed By: #### [id number] #### [facility] [address] [place], [place] [address]Thrbgy Absolute7.5 E9/LNormal2.0-7.5FCleveland Clinic Marymount Hospital Comment on above:Performed By: #### [id number] #### [facility] [address] [place] [address]Vzfnfz Auto74.2 %Yghrfl24.0-75.0[facility] Comment on above:Performed By: #### [id number] #### [facility] [address] [place] [address]Fsxooacp592.0 E9/ZAcqrxi236.0-500.0[facility] Comment on above:Performed By: #### [id number] #### [facility] [address] [place] [address]Ycoboera mean volume (Bld) [Entitic vol]8.1 fLNormal6.4-10.8 Kettering HealthComment on above:Performed By: #### [id number] #### [facility] [address] [place], [place] [address]YTU0.8 E12/LLow4.3-5.9Kettering HealthComment on above:Performed By: #### [id number] #### [facility] [address] [place] [address]YHP42.1 E9/LNormal4.0-11.0Kettering HealthComment on above:Performed By: #### [id number] #### [facility] [address] [place], [place] [address]Ttlupjgbrq 81-39-5081Bpcobrpo Lvl7 ng/nHRve29-067FyorfhKettering HealthComment on above:Performed By: #### [id number] #### [facility] [address] [place], [place] [address]Xmtcorbm 96-74-0760Wptepn Lvl>22.3Normal>=6.7FCleveland Clinic Marymount HospitalComment on above:Performed By: #### [id number] #### [facility] [address] [place], [place] [address]Yfvv Scr Glu 1 Hron 82-25-9671Qsqvqny [Mass/Vol]155 mg/dLHigh 55-140Kettering HealthComment on above:Performed By: #### [id number] #### [facility] [address] [place] [address]Kjjwuhd 1h post 50g loadon 45-83-2727Vhrjljh, 1 hr PP 50GM dose 155ProMedica Health SystemIronon 74-12-8976Aokr25 microgram/bFUrmejz42-974FkosbdKettering HealthComment on above:Performed By: #### [id number] #### [facility] [address] [place], [place] [address]Nl Panel Informationon 97-66-4842TATY HealthcareTIBC Calculated on 93-65-3130THAU804 microgram/nNFqnp580-978EoiihpKettering HealthComment on above:Performed By: #### [id number] #### [facility] [address] [place], [place] [address]Fbajvvxwbqf [Mass/Vol]455 mg/cEPqig382-021HkjrsaKettering HealthComment on above:Performed By: #### [id number] #### [facility] [address] [place], [place] [address]IJ OB LIMITED 1+ FETUSESon 11-30-9394JR OB LIMITED 1+ FETUSES FINDINGS: Single viable [...] Delivery: 11/28/25 Gestational Age as of 07/21/2025: 51i2uPkbfjpfucz macro (dipstick) panel (U)on 34-86-2984Blrnqbhwn, UANegativeNegative - 4(70) +++ mg/dLNOMS HealthcareBlood, UANegativeNegative [...] HealthcareUrobilinogen, UA1.00.2 - 12 mg/dLNOMS HealthcareVit B12on 54-01-2820Eytvzthjz (Vitamin B12) [Mass/Vol]205 pg/jESoktle68-4973Giswbr Holy Cross HospitalComment on above:Performed By: #### [id number] #### [facility] [address] [place], [place] [address]RDF w/ Auto Diffon 83-18-9896Xszuyphj Absolute0.0 E9/LNormal 0.0-0.2Fisher [facility] Cross HospitalComment on above:Performed By: #### [id number] #### [facility] [address] [place], [place] [address]Zbmoaoezz/100 WBC (Bld)0.2 %Normal0.0-2.0Kettering HealthComment on above:Performed By: #### [id number] #### [facility] [address] [place] [address]Qte Absolute0.1 E9/LNormal0.0-0.5FCleveland Clinic Marymount Hospital Comment on above:Performed By: #### [id number] #### [facility] [address] [place], [place] [address]Zgstelwkzgx/100 WBC (Bld)0.5 %Normal0.0-8.0Kettering HealthComment on above:Performed By: #### [id number] #### [facility] [address] [place] [address]Tqjrfrqkqgt distribution width (RBC) [Ratio]13.0 %Normal 10.9-14.2FCleveland Clinic Marymount HospitalComment on above:Performed By: #### [id number] #### [facility] [address] [place] [address]Hacxiwcrgb (Bld) [Volume fraction]31.9 %Low34.0-46.0Kettering HealthComment on above:Performed By: #### [id number] #### [facility] [address] [place] [address]Qhcdjmijdw (Bld) [Mass/Vol]11.1 g/dLLow12.0-16.0Kettering HealthComment on above:Performed By: #### [id number] #### [facility] [address] [place] [address]Dotra Absolute2.1 E9/LNormal1.0-4.0[facility] Comment on above:Performed By: #### [id number] #### [facility] [address] [place], [place] [address]Qfuhxxiybey/100 WBC (Bld)16.2 %Nzrnqn81.0-50.0Kettering HealthComment on above:Performed By: #### [id number] #### [facility] [address] [place], [place] [address]IBZ (RBC) [Entitic mass]29.9 ylUcdyex79.0-34.0Kettering HealthComment on above:Performed By: #### [id number] #### [facility] [address] [place] [address]IYQF (RBC) [Mass/Vol]34.8 g/aUYiednu81.4-36.0Kettering HealthComment on above:Performed By: #### [id number] #### [facility] [address] [place] [address]BDU (RBC) [Entitic vol]85.7 zJUwtkac57.0-100.0Kettering HealthComment on above:Performed By: #### [id number] #### [facility] [address] [place] [address]Mimx Absolute0.9 E9/LNormal0.2-1.0[facility] Comment on above:Performed By: #### [id number] #### [facility] [address] [place] [address]Jwvccexmm/100 WBC (Bld)7.0 %Normal4.0-14.0Kettering HealthComment on above:Performed By: #### [id number] #### [facility] [address] [place] [address]Bgxxuk Absolute9.7 E9/LHigh2.0-7.5[facility] Comment on above:Performed By: #### [id number] #### [facility] [address] [place] [address]Djffop Auto76.1 %High36.0-75.0[facility] Comment on above:Performed By: #### [id number] #### [facility] [address] [place] [address]Fvjnljzg975.0 E9/JKrwerk866.0-500.0[facility] Comment on above:Performed By: #### [id number] #### [facility] [address] [place], [place] [address]Wdhuapzt mean volume (Bld) [Entitic vol]8.0 fLNormal6.4-10.8 Kettering HealthComment on above:Performed By: #### [id number] #### [facility] [address] [place], [place] [address]BQQ1.7 E12/LLow4.3-5.9Kettering HealthComment on above:Performed By: #### [id number] #### [facility] [address] [place], [place] [address]IAD26.8 E9/LHigh4.0-11.0Kettering HealthComment on above:Performed By: #### [id number] #### [facility] [address] [place], [place] [address]OOPgq 80-93-7199OY8 [Moles/Vol]20 mmol/DZik75-30XpfffxKettering HealthComment on above:Performed By: #### [id number] #### [facility] [address] [place], [place] [address]Eknav gap [Moles/Vol]16 mmol/LNormal6-16Kettering HealthComment on above:Performed By: #### [id number] #### [facility] [address] [place], [place] [address]Fbhaoid [Mass/Vol]3.8 g/dLNormal3.3-5.0Kettering HealthComment on above:Performed By: #### [id number] #### [facility] [address] [place], [place] [address]Hfyllai/Globulin [Mass ratio]1.3 {ratio}Normal1.1-2.2FCleveland Clinic Marymount HospitalComment on above:Performed By: #### [id number] #### [facility] [address] [place], [place] [address]Mcm Phos78 Int._Unit/NFuyxeo45-73TvhpolKettering Health Comment on above:Performed By: #### [id number] #### [facility] [address] [place], [place] [address]NPE43 Int._Unit/LNormal6-46Kettering HealthComment on above:Performed By: #### [id number] #### [facility] [address] [place], [place] [address]CNG58 Int._Unit/LNormal5-43Ket[facility] HealthComment on above:Performed By: #### [id number] #### [facility] [address] [place], [place] [address]Jevq Total0.8 mg/dLNormal0.0-1.1[facility] Comment on above:Performed By: #### [id number] #### [facility] [address] [place], [place] [address]PDO/Creat Ratio18 No QtepsYktqqz14-04JcclprKettering HealthComment on above:Performed By: #### [id number] #### [facility] [address] [place], [place] [address]Tmgzobi [Mass/Vol]8.9 mg/dLNormal8.9-11.1FC[facility] Mary[facility] HospitalComment on above:Performed By: #### [id number] #### [facility] [address] [place], [place] [address]Yzrdkjnc [Moles/Vol]104 mmol/RNahfen922-943OtstkcKettering HealthComment on above:Performed By: #### [id number] #### [facility] [address] [place], [place] [address]Qpzkkkhngq [Mass/Vol]0.6 mg/dLNormal0.5-1.3FCleveland Clinic Marymount HospitalComment on above:Performed By: #### [id number] #### [facility] [address] [place], [place] [address]Dsjncbex (S) [Mass/Vol]3.0 g/dLNormal1.4-4.0Kettering HealthComment on above:Performed By: #### [id number] #### [facility] [address] [place], [place] [address]Evbldka [Mass/Vol]92 mg/eDKxzyjm05-267KywzoiKettering HealthComment on above:Performed By: #### [id number] #### [facility] [address] [place], [place] [address]Ylpqpmpto [Moles/Vol]3.7 mmol/LNormal3.5-5.3FCleveland Clinic Marymount HospitalComment on above:Performed By: #### [id number] #### [facility] [address] [place], [place] [address]Lotjdfg [Mass/Vol]6.8 g/dLNormal6.0-7.8Kettering HealthComment on above:Performed By: #### [id number] #### [facility] [address] [place], [place] [address]Vjguye [Moles/Vol]136 mmol/LFjypfu650-918WpxmjdKettering HealthComment on above:Performed By: #### [id number] #### [facility] [address] [place], [place] [address]Jqoq nitrogen [Mass/Vol]11 mg/dLNormal5-21Kettering HealthComment on above:Performed By: #### [id number] #### [facility] [address] [place], [place] [address]Kixeo Panelon 70-31-1560Tnrewgrxhek [Mass/Vol]239 mg/dLHigh 120-200Kettering HealthComment on above:Performed By: #### [id number] #### [facility] [address] [place], [place] [address]Cvzqyahzfil in HDL [Mass/Vol]88 mg/dLInvalid Interpretation CodeKettering HealthComment on above:Result Comment: '>= 60 LOW RISK' '<= 40 HIGH RISK'Performed By: #### [id number] #### [facility] [address] [place], [place] [address]Mrtyxmaxijh in LDL [Mass/Vol]144 mg/dLHigh<=129Kettering HealthComment on above:Performed By: #### [id number] #### [facility] [address] [place], [place] [address]Pfcjmgukdjd in VLDL [Mass/Vol]40 mg/dLNormal7-40Kettering HealthComment on above:Performed By: #### [id number] #### [facility] [address] [place], [place] [address]Rvdqwehwxwks [Mass/Vol]202 mg/dLHigh<=149Kettering HealthComment on above:Performed By: #### [id number] #### [facility] [address] [facility] [place], [place] [address]eILGcq 11-67-5654dRCF218 mL/min/1.73 z3Amggof>=59Kettering HealthComment on above:Performed By: #### [id number] #### [facility] [address] [place], [place] [address]WRM, SERUM, OPEN SPINA BIFIDAon 22-20-7518IYS MOM0.95.[facility] HealthcareAFP VALUE59.2 ng/mL.[facility] HealthcareCOMMENT:Comment.[facility] Healthcare Comment on above:Amy Ramos, Ph.D., [facility] Director References: Available Upon Request. Multiples Of Median Cutoffs For AFP Elevations Hsieh 2.5 Black 2.8 IDD 2.0 Twins 4.5 Abbreviation Definitions IDD - Insulin Dep Diabetes OSBR - Open Spina Bifida Risk For further inquiries contact [facility] at [phone]. This test was developed and its performance characteristics determined by [facility]. It has not been cleared or approved by the Food and Drug Administration. Performed at: [facility] [address] [place], [place] [id number] Solo Musician: Dona Justin [facility], Phone: [phone] GEST. AGE ON COLLECTION DATE20.6. weeksNOMS HealthcareGESTAT. AGE BASED ONLMP. NOMS HealthcareComment on above:Recalculations are not recommended when gestational dating by LMP and ultrasound are within 10 days. INSULIN DEP DIABETESNo.[facility] HospitalINTERPRETATIONComment.[facility] Comment on above:Interpretation: Screen Negative This [...] Customer Services to discuss available options. The [place] [employer] recommends amniocentesis be offered to women age 35 and older. MATERNAL AGE AT EDD30.7. yrNOIL HealthcareMULTIPLE GESTATIONNo.[facility] OSBR RISK 1 [id number].[facility]itan HospitalRACECaucasian.[facility] HospitalRESULTSReport. [facility]itan HospitalTEST RESULTS:Negative.[facility]itan HospitalBijemljekdWEBTET918. lbQuincy Valley Medical Center HealthcarePREGNANCY N N LMP [id number] 2 17 N 1 Y 146 N N N N N White/ CLINISYNCNOIL HealthcareUS OB 14+ WEEKS ANATOMY SCANon 89-47-2678UI OB 14+ WEEKS ANATOMY SCANEXAM: US OB [...] II, MD, PHD at 16-Jul-2025 08:07:07 AM [facility] TeleradiologyNormalNot AvailableComment on above:Order Comment: US OB ANATOMY SINGLE W US OB CERVICAL LENGTH Estimated Date of Delivery: 11/28/25 Gestational Age as of 06/22/2025: 91j2fTlwglbzemv macro (dipstick) panel (U)on 98-36-6163Afomhiunz, UANegativeNegative - 4(70) +++ mg/dLNOMS HealthcareBlood, UANegativeNegative - 50 Teodoro/mcLNOMS HealthcareClarity, UAClearNOMS Healthcare Color, UAYellowNOMS HealthcareGlucose, UANegativeNegative - 1999(110) ++++ mg/dL NOMS HealthcareInterpretation and review of laboratory resultsNormalNOMS HealthcareKetones, UANegativeNegative - 160(16) ++++ mg/dLNOMS Healthcare Leukocytes, UANegativeNegative - 500+++ Robinson/mcLNOMS HealthcareNitrite, UA NegativeNegative - PositiveNOMS HealthcarepH, UA65 - 9NOMS HealthcareProtein, UA NegativeNegative - 2000(20) ++++ mg/dLNOMS HealthcareSpec Grav, UA1.011 - 1.03 NOMS HealthcareUrobilinogen, UA1.00.2 - 12 mg/dLNOMS HealthcareNOMS Healthcare RECURRENT VAGINITIS (HTRX)on 43-45-2351IEVUMSVOV MYFQLBA3VZQR Healthcare ATOPOBIUM VAGINAENot detectedNOMS HealthcareBVAB 2,3 (BACTERIAL VAGINOSIS ASSOCIATED BACTERIA 2, 3); MOBILUNCUS PWB1YEYO HealthcareBVAB 2,3 (BACTERIAL VAGINOSIS ASSOCIATED BACTERIA 2, 3); MOBILUNCUS SPPNot detectedNOMS Healthcare RADHA ALBICANS, PARAPSILOSIS, JRWUAVWOVZ1OERW HealthcareCANDIDA ALBICANS, PARAPSILOSIS, TROPICALISNot detectedNOMS HealthcareCANDIDA RYASZPPC9VESP HealthcareCANDIDA GLABRATANot detectedNOMS HealthcareCANDIDA MMDFEF9FNTR HealthcareCANDIDA KRUSEINot detectedNOMS HealthcareCHLAMYDIA GBXCRBRAXLI2GYFJ HealthcareCHLAMYDIA TRACHOMATISNot detectedNOMS HealthcareGARDNERELLA VAGINALIS 17.967AbnormalNOMS HealthcareGARDNERELLA VAGINALISDetectedAbnormalNOIL HealthcareInterpretation and review of laboratory resultsAbnormalNOIL Healthcare MEGASPHAERA (TYPES 1, 2)0NOMS HealthcareMEGASPHAERA (TYPES 1, 2)Not detectedNOMS HealthcareMYCOPLASMA GSIWYWWMVH3QRJZ HealthcareMYCOPLASMA GENITALIUMNot detectedNOMS HealthcareNEISSERIA HYKLBBSSVUH8ZNED HealthcareNEISSERIA GONORRHOEAENot detectedNOMS HealthcareTRICHOMONAS YKHJDPEKM5KTJS Healthcare TRICHOMONAS VAGINALISNot detectedNOMS HealthcareNOMS HealthcareUrinalysis macro (dipstick) panel (U)on 76-12-7214Fpmyjpjbp, UANegativeNegative - 4(70) +++ mg/dL NOMS HealthcareBlood, UANegativeNegative - 50 Teodoro/mcLNOMS HealthcareClarity, UA ClearNOMS HealthcareColor, UAYellowNOMS HealthcareGlucose, UANegativeNegative - 2000(110) ++++ mg/dLNOMS HealthcareInterpretation and review of laboratory resultsNormalNOIL HealthcareKetones, UANegativeNegative - 160(16) ++++ mg/dLNOMS HealthcareLeukocytes, UANegativeNegative - 500+++ Robinson/mcLNOMS Healthcare Nitrite, UANegativeNegative - PositiveNOMS HealthcarepH, UA65 - 9N[facility] Healthcare Protein, UANegativeNegative - 1999(20) ++++ mg/dLNOMS HealthcareSpec Grav, UA 1.0051 - 1.03NOMS HealthcareUrobilinogen, UA1.00.2 - 12 mg/dLNOIL HealthcareNOIL HealthcareUrinalysis macro (dipstick) panel (U)on 44-67-4029Mjwdvxwpg, UA NegativeNegative - 4(70) +++ mg/dLNOIL HealthcareBlood, UANegativeNegative - 50 Teodoro/mcLNOIL HealthcareClarity, UAClearNOMS HealthcareColor, UAYellowNOIL HealthcareGlucose, UANegativeNegative - 2000(110) ++++ mg/dLPR[facility] Healthcare Interpretation and review of laboratory resultsNormalPR[facility] HealthcareKetones, UA NegativeNegative - 160(16) ++++ mg/dLPR[facility] CHILDREN'S [facility] HealthcareLeukocytes, UAPositive Negative - 500+++ Robinson/mcLPRIMARY CHILDREN'S HOSPITAL HealthcareComment on above:smallNitrite, UA NegativeNegative - PositiveNOIL HealthcarepH, UA6.55 - 9NOMS HealthcareProtein, UANegativeNegative - 1999(20) ++++ mg/dLNOIL HealthcareSpec Grav, UA1.011 - 1.03 NOMS HealthcareUrobilinogen, UA0.20.2 - 12 mg/dLKansas City VA Medical Center Healthcare BOX TESTon 91-04-7912PZP TEST SENT OUTunSt. Francis HospitalAlphggunjiDKT6qweyoWDKK TlriqggmnrGXP59/08/20NOSt. Louis VA Medical CenterUNITY BOX CLINISYNCCBC without diffon 81-09-4849Pzkiflpsvo (Bld) [Volume fraction]39.8 % [facility] SystemHemoglobin (Bld) [Mass/Vol]13.2 g/dLUniversity Hospitals Ahuja Medical CenterPlatelets (Bld) [#/Vol]390 10*3/uLUniversity Hospitals Ahuja Medical CenterRbc Mcv (Fl) By Automated Count84.7University Hospitals Ahuja Medical CenterDrug Screen, Urineon 05-04-2025 Amphetamine/MethamphetamineNegativeC[facility] Clinic Hillcre[facility] Hospital SystemBarbituratesNegative [facility] SystemBenzodiazepinesNegativeC[facility] SystemCocaine MetaboliteNegativeC[facility] Clinic Hill[facility] Hospital SystemMethadoneNegativeC[facility] Clinic [facility] Hospital SystemOpiatesNegativeProMedica Health SystemOxycodoneNegativeProMedica Health SystemPhencyclidineNegativeProMedica Health SystemThc Marijuana, UrineNegative [facility] SystemHBV surface Ag IA Qlon 76-59-5927Axqawxcmb B Surface AntigenNegativeProMedica Health SystemHCV Ab IA Qlon 73-56-2488GWF Ab Ql (S) Non-ReactiveProMedior Health SystemHIV 1+2 Ab+HIV1 p24 Ag IA Qlon 22-75-5295HXZ 1&2 AB/AGNon-ReactiveCleveland Clinic Hillcrest Hospital SystemHemoglobin A1con 05-84-6442LaV7z (Bld) [Mass fraction]5.3 %4.0 - 6.0 %[facility] SystemNo Panel Information on 99-25-7765ZUBD HealthcareRubella IGG immune statusOrdered By: Angeline Velasquez on 28-14-8088Pzazbnn immune IgGProCooper Green Mercy Hospital Health SystemType and screenon 80-19-5193Zcj/Rh(D)PositiveProOhiohealth Pickerington Methodist HospitalHCG ( test) Ql (U)on 26-88-2935Nsdfnpyvxmpvim and review of laboratory resultsAbnormalNOIL Healthcare Preg Test, UrPositiveNegativeNOSt. Louis VA Medical CenterNOIL HealthcareUS OB TRANSVAGINALon 58-12-5180KfhVerdig[place], [place] [address] Ultrasound Report Signed Patient: JUHI COPE MR#: [id number] : 1995 Acct:[id number] Age/Sex: 30 / F ADM Date: 05/01/25 Loc: US Attending Dr: Nathan Pop D.O. Ordering Physician: Nathan Pop D.O. Date of Service: 05/01/25 Procedure(s): US OB transvaginal Accession Number(s): [id number] cc: Nathan Pop D.O.; Physician,Non-Staff Katherine The [address] [address] Patient Name: JUHI COPE MRN: [id number] date: 1995 Sex: F Assigned Patient Location: US Current Patient Location: US Accession/Order Number: [id number] Exam Date: 05/01/2025 08:57 Report Date: 05/01/2025 [...] Faria M.D. 05/01/2025 9:01 AM Dictation Location: [place] [address] Electronically authenticated by: [id number] Y Date: 05/01/2025 09:01 Dictated By: Will Faria M.D. Signed By: 05/01/2504 DD/ 0 TD/TT: Hose Mender:TBHRadiology, Radiologist, MD - 05/01/2025 [place] [address] Ultrasound Report Signed Patient: JUHI COPE MR#: [id number] : 1995 Acct:[id number] Age/Sex: 30 / F ADM Date: 05/01/25 Loc: US Attending Dr: Nathan Pop D.O. Ordering Physician: Nathan Pop D.O. Date of Service: 05/01/25 Procedure(s): US OB transvaginal Accession Number(s): [id number] cc: Nathan Pop D.O.; Physician,Non-Staff Katherine [address] [address] Patient Name: JUHI COPE MRN: [id number] date: 1995 Sex: F Assigned Patient Location: US Current Patient Location: US Accession/Order Number: [id number] Exam Date: 05/01/2025 08:57 Report Date: 05/01/2025 [...] Faria M.D. 05/01/2025 9:01 AM Dictation Location: [place] [address] Electronically authenticated by: [id number] Y Date: 05/01/2025 09:01 Dictated By: Will Faria M.D. Signed By: 05/01/25903 DD/ 0 TD/TT: Hose Mender: LANETTE HealthcareRadiology Study observation (narrative)LANETTE SmallUS OB TRANSVAGINALOrdered By: Radiologist Radiology on 69-46-9499MPAE Healthcare Work Phone: Urinalysis macro (dipstick) panel (U)on 05-01-2025 Bilirubin, UANegativeNegative - 4(70) +++ mg/dLNOMS HealthcareBlood, UANegative Negative - 50 Teodoro/mcLNOMS HealthcareClarity, UAClearNOMS HealthcareColor, UA YellowNOMS HealthcareGlucose, UANegativeNegative - 2000(110) ++++ mg/dLNOMS HealthcareInterpretation and review of laboratory resultsNormalNOIL Healthcare Ketones, UANegativeNegative - 160(16) ++++ mg/dLNOMS HealthcareLeukocytes, UA NegativeNegative - 500+++ Robinson/mcLNOMS HealthcareNitrite, UANegativeNegative - PositiveNOMS HealthcarepH, UA5.55 - 9NOMS HealthcareProtein, UANegativeNegative - 2000(20) ++++ mg/dLNOMS HealthcareSpec Grav, UA1.021 - 1.03NOMS Healthcare Urobilinogen, UA1.00.2 - 12 mg/dLNOMS HealthcareNOMS HealthcareCHEMISTRYOrdered By: SYSTEM SYSTEM on 66-19-3589Qayrnmpoaeir Lvl31.35 ng/mLInvalid Interpretation CodeRemisol ChemComment on above:Result Comment: 'F NON FOLLICULAR = 0.10 - 0.60' 'LUTEAL = 3.00 - 17.5' 'MIDLUTEAL = 3.30 - 18.6' 'POST-MENOPAUSE = 0.10 - 0.40' '-FIRST TRIMESTER = 8.30 - 66.5' 'SECOND TRIMESTER = 18.9 - 66.1' 'THIRD TRIMESTER = 35.8 - 312.4' 'MALES = 0.14 - 2.06'Progesteroneon 87-24-4323Nzaaotdkcgur Lvl31.35 ng/mLInvalid Interpretation CodeKettering HealthComment on above:Result Comment: 'F NON FOLLICULAR = 0.10 - 0.60' 'LUTEAL = 3.00 - 17.5' 'MIDLUTEAL = 3.30 - 18.6' 'POST-MENOPAUSE = 0.10 - 0.40' '-FIRST TRIMESTER = 8.30 - 66.5' 'SECOND TRIMESTER = 18.9 - 66.1' 'THIRD TRIMESTER = 35.8 - 312.4' 'MALES = 0.14 - 2.06'Performed By: #### [id number] #### [facility] [address] [place], [place] [address]Qymlweesopyobv 46-25-6075Jxzwfrogrxzj4.2 ng/mLNormal.[facility] Physician GroupComment on above:Result Comment: Follicular phase 0.1 - 0.9 Luteal phase 1.8 - 23.9 Ovulation phase 0.1 - 12.0 First trimester 11.0 - 44.3 Second trimester 25.4 - 83.3 Third trimester 58.7 - 214.0 Postmenopausal 0.0 - 0.1 Performed at: - [facility] [id number] Solo Musician: Cm Sandoval PhD, Phone: [phone] PERFORMED BY: [address] [place] [address] PATHOLOGIST GRADUATE ASSISTANT ARNULFO THOMAS M.D.Performed By: #### PROG #### [facility] , Transvaginal Non-OBon 84-00-0537YB Transvaginal Non-OBExam Date/Time: 01/22/2025 16:22 EST Reason for Exam: N94.6 Report PLEASE SEE US Pelvis Non-OB Complete REPORT DATED: 01/22/2025. Ordering Provider: Nathan POP FINAL REPORT Dictated: 01/27/2025 10:11 am Siddharth Foy MD Signed (Electronic Signature): 01/27/2025 10:11 am Signed by: Siddharth Foy MD Transcribed by: ELOISA Technologist: Filiberto [facility] HospitalUS Pelvis Non-OB Completeon 20-79-2402EH Pelvis Non-OB CompleteExam Date/Time: 01/22/2025 16:24 EST [...] Kate Gonzalez MD Transcribed by: ELOISA Technologist: TalyaKettering HealthMILADY,APTIMA HPV,AGE GDLNon 03-24-2840YAM GDLN ACOG TESTINGNote.NOMS HealthcareComment on above:TESTS RESULT FLAG UNITS REF RANGE LAB Clinician Provided Cytology Information Source.............Cervix;Endocervix No. of containers..01 ThinPrep Vial Age Algo ACOG Sarah... -24 12 FLAG LEGEND: L-Low Normal,H-High Normal,LL-Alert Low,HH-Alert High <-Panic Low,>-Panic High,A-Abnormal,AA-Critical Abnormal Performed at: 01 =G [facility] [place] [address] Loren Oneal MD, IGP, RFX APTIMA HPV ASCUNote.[facility] HealthcareComment on above:TESTS RESULT FLAG UNITS REF RANGE LAB DIAGNOSIS: 02 NEGATIVE FOR INTRAEPITHELIAL LESION OR MALIGNANCY. Specimen adequacy: 02 Satisfactory for evaluation. Endocervical and/or squamous metaplastic cells (endocervical component) are present. Performed by: Sophia Calzada, Copy Room Technician ([facility]) . 02 Note: Note 02 [...] Low,>-Panic High,A-Abnormal,AA-Critical Abnormal Performed at: [address] [address] Loren Oneal MD, Performed at: =G - [facility] [id number] Solo Musician: Loren Oneal MD, Phone: [phone] Performed at: [facility] [id number] Solo Musician: Loren Oneal MD, Phone: [phone] BRUSH-SPATULA CERVIX ENDOCERVIX [facility] 26-97-8981MUJGNtnvvciom (WHQ) JUHI COEP ([id number]) 1995 F Date Time Provider Department 04/29/24 [...] [I10] Encounter Status:Closed by CANDIS GARCES on 04/29/24NoOhioHealth [facility] Hospital Gladys 46-09-7045ORXXVbwoazxlc (WHQ) JUHI COPE ([id number]) 1995 F Date Time Provider Department 04/25/24 CHARLENE RODRIGUEZ During your visit today, we recorded the following information about you: Anna De Leon 04/25/2024 1:10 PM Signed Pt got in sooner for surgery with her local digital printer. Please cancel surgery and all pre and [...] 10/08/2020 HTN (hypertension) [I10] Encounter Status:Closed by SUSI DE LEONLEY on 04/25/24[facility] 12-LEADon 90-80-5556F[address] [address] Electrocardiograph Report Signed Patient: JUHI COPE MR#: [id number] : 1995 Acct:[id number] Age/Sex: 28 / F ADM Date: 02/13/24 Loc: PST Attending Dr: Nathan Pop D.O. Ordering Physician: Nathan Pop D.O. Date of Service: 02/13/24 Procedure(s): ECG 12 lead Accession Number(s): [id number] cc: [facility] Test Date: 2024-02-13 Pat Name: JUHI COPE Department: Room: - Gender: Female Cardiac Rehabilitation Specialist: : 1995 Requested By: NATHAN POP Order Number: [id number] Reading MD: MARY KATE ORDAZ Measurements Intervals [place] Rate: 86 P: 31 ND: 133 QRS: 20 QRSD: 89 T: 47 QT: 374 QTc: 449 Interpretive Statements SINUS RHYTHM No previous ECG available for comparison Electronically Signed On 02-14-2024 6:50:27 EDT by MARY KATE ORDAZ Dictated By: Mary Kate Ordaz D.O. Signed By: 02/14/24 0650 DD/ 1455 TD/TT: Hose Mender:TBHRadiology, Radiologist, MD - 02/14/[address] [address] Electrocardiograph Report Signed Patient: JUHI COPE MR#: [id number] : 1995 Acct:[id number] Age/Sex: 28 / F ADM Date: 02/13/24 Loc: PST Attending Dr: Nathan Pop D.O. Ordering Physician: Nathan Pop D.O. Date of Service: 02/13/24 Procedure(s): ECG 12 lead Accession Number(s): [id number] cc: [facility] Test Date: 2024-02-13 Pat Name: JUHI COPE Department: Room: - Gender: Female Cardiac Rehabilitation Specialist: : 1995 Requested By: NATHAN POP Order Number: [id number] Reading MD: MARY KATE ORDAZ Measurements Intervals [place] Rate: 86 P: 31 ND: 133 QRS: 20 QRSD: 89 T: 47 QT: 374 QTc: 449 Interpretive Statements SINUS RHYTHM No previous ECG available for comparison Electronically Signed On 02-14-2024 6:50:27 EDT by MARY KATE ORDAZ Dictated By: Mary Kate Ordaz D.O. Signed By: 02/14/24 0650 DD/ 1455 TD/TT: Hose Mender: LANETTE HealthcareECG 12-LEADOrdered By: Radiologist Radiology on 54-88-1930[facility] Work Phone: ECG 12-LEADon 14-47-5385Diecuhxgt Study observation (narrative)LANETTE HealthcareUS PELVIS W/ TRANSVAGINALon 98-79-0883[place]uVerdig[place], [place] [address] Ultrasound Report Signed Patient: JUHI COPE MR#: [id number] : 1995 Acct:[id number] Age/Sex: 28 / F ADM Date: 01/15/24 Loc: [facility] Attending Dr: Nathan Pop D.O. Ordering Physician: Nathan Pop D.O. Date of Service: 01/15/24 Procedure(s): US pelvis w/ transvaginal Accession Number(s): [id number] cc: Nathan Pop D.O.; Physician,Non-Staff Katherine The [address] [address] Patient Name: JUHI COPE MRN: [id number] date: 1995 Sex: F Assigned Patient Location: [facility] Current Patient Location: [facility] Accession/Order Number: [id number] Exam Date: 01/15/2024 07:57 Report Date: 01/15/2024 [...] Signed By: 01/15/24 1144 DD/ 1142 TD/TT: Hose Mender:TBHRadiology, Radiologist, - 01/15/2024 [place] [address] Ultrasound Report Signed Patient: JUHI COPE MR#: [id number] : 1995 Acct:[id number] Age/Sex: 28 / F ADM Date: 01/15/24 Loc: [facility] Attending Dr: Nathan Pop D.O. Ordering Physician: Nathan Pop D.O. Date of Service: 01/15/24 Procedure(s): US pelvis w/ transvaginal Accession Number(s): [id number] cc: Nathan Pop D.O.; Physician,Non-Staff M.DKaren The [place] [id number] Patient Name: JUHI COPE MRN: [id number] date: 1995 Sex: F Assigned Patient Location: [facility] Current Patient Location: [facility] Accession/Order Number: [id number] Exam Date: 01/15/2024 07:57 Report Date: 01/15/2024 [...] Signed By: 01/15/24 1144 DD/ 1142 TD/TT: Hose Mender: LANETTE HealthcareRadiology Study observation (narrative)[facility] HealthcareUS PELVIS W/ TRANSVAGINALOrdered By: Radiologist Radiology on 47-73-7394EPMF [employer] Work Phone: cNPTanya 66-88-1895YVDGTaqzsytst (Q) JUHI COPE ([id number]) 1995 F Date Time Provider Department 12/12/23 [...] [I10] Encounter Status:Closed by CANDIS GARCES on 12/12/23[facility] 64-13-8246SGGLIdntya Visit (GYMGME) JUHI COPE ([id number]) 1995 F Date Time Provider Department 12/10/23 10:30 AM CHARLENE RODRIGUEZ During your visit today, we recorded the following information about you: Pulse Blood pressure Weight 98/minute 124/84 68.9 kg Charlene Rodriguez DO 12/10/2023 3:14 PM Signed [facility] SECTION FOR MINIMALLY INVASIVE GYNECOLOGIC SURGERY OUTPATIENT VISIT DATE 12/10/2023 OUTPATIENT VISIT TYPE Follow-up visit PRIMARY CARE PHYSICIAN: Denny Rodríguez [address] [place] [address] REFERRING PHYSICIAN: Self CHIEF COMPLAINT: No chief [...] understanding and agrees with treatment plan. Charlene Billow, DO In clinic today, pt reports she still has pain monthly but no bleeding. States Orilissa has not improved her pain. She continues to have cramping and discomfort. Has failed norethindrone and Orilissa. 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: 07/08/2023 (Exact Date), Having periods Age at Menarche: 14 Age at First : 27 Age at Menopause: 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 History Comments: Sexual Activity: Never; No [...] Skin: Skin color, texture (more content not included)...NormalOhioHealth Grady Memorial Hospitalology Cervical or vaginal smear or scraping studyon 00-63-4316VNSM HealthcareCNPNon 68-60-2628IKODHmrcwadsn ([facility]) JUHI COPE ([id number]) 1995 F Date Time Provider Department 08/02/23 CHARLENE RODRIGUEZ [facility] During your visit today, we recorded [...] completed via Cover MyMeds. Juhi Cope (Morales: [id number]) - [id number] Orilissa 150MG tablets Status: Sent To Plan [...] [I10] Encounter Status:Closed by JENIFER LYNN on 08/02/23[facility] 34-62-1137LDSPBqdceo Visit (GYMGME) JUHI COPE ([id number]) 1995 F Date Time Provider Department 07/16/23 11:30 AM CHARLENE RODRIGUEZ During your visit today, we recorded the following information about you: Blood pressure Last Period 136/90 07/08/23 Charlene Rodriguez DO 07/16/2023 12:41 PM Signed [facility] SECTION FOR MINIMALLY INVASIVE GYNECOLOGIC SURGERY OUTPATIENT VISIT DATE 07/16/2023 OUTPATIENT VISIT TYPE Follow-up visit PRIMARY CARE PHYSICIAN: Denny Rodríguez [address] [place] [address] REFERRING PHYSICIAN: Denny Rodríguez CHIEF COMPLAINT: No [...] bowel lesions identified 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 IMPRESSION: No deep infiltrating endometriosis. Hose Mender: DAVID Transcribe Date/Time: Jun 12 2023 2:54P Dictated by : ASHLEY DUKE MD This examination was interpreted and the report reviewed and electronically signed by: SONIDO FLAHERTY MD on Jun 12 2023 4:51PM EST [id number] HospitalCNPNon 77-92-4532QDCBRpohwaebc (GYNMN) JUHI COPE ([id number]) 1995 F Date Time Provider Department 05/11/23 CHARLENE RODRIGUEZ GYNMN During your visit today, we recorded the following information about you: [place] Nair [facility] [place] 1:21 PM Signed Reason for call: [...] Takes aygestin 5mg daily. She did not tack picker flexeril. Encourage to tack picker the flexeril as this will help with the cramping. Reviewed red flag bleeding symptoms that require trip to ER (soaking greater than one overnight pad per hour, chest pain, shortness of breath, fatigue, palpitations).. Advised keep appt. Gives verbal understanding. Appointments for Next 60 Days Date Time Provider Location Dept Phone 05/17/2023 1:00 PM CHARLENE RODRIGUEZ [facility] [place] [phone] Candis Suárez RN Allergies As of Date: 05/11/2023 (No Known Allergies) Date Reviewed: 05/09/2023 Reviewed by: Jihan Downs APRN.POULTRY KILLER - Fully Assessed Reason for Visit: Vaginal [...] [I10] Encounter Status:Closed by CANDIS WILLINGHAM on 05/11/23[facility] [id number] Visit ([facility]) NITO COPEIS ([id number]) 1995 F Date Time Provider Department 05/01/23 10:30 AM JIHAN DOWNS [facility] During your visit today, we recorded the following information about you: Blood pressure Weight Height Last Period 148/64 64.9 kg 1.575 m 04/22/23 Jihan Downs APRN.POULTRY KILLER 05/09/2023 11:46 AM Signed Juhi Cope is a 28 year old female who presents for problem visit for pain HPI: Pain is week before period and week of period. Worse on her period for every day she's bleeding Urinary - No symptoms GI - Always constipated. 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 History Comments: Sexual Activity: Never; No [...] physical therapy - or can go locally pelvicVerismo Networksab[employer] Trial flexeril at bedtime Can consider Baclofen [...] physical therapy - or can go locally pelvicVerismo Networksab[employer] Trial flexeril at bedtime Can consider Baclofen suppositories - let me know if you want to trial after you go to PT Contin (more content not included)...NormalCentervilleCHEMISTRY Ordered By: SYSTEM SYSTEM on 41-82-7135Vxeulht [Mass/Vol]4.3 g/dLNormal3.3 - 5.0 gm/dLFT RemisolAlbumin/Globulin [Mass ratio]1.2 {ratio}Normal1.1 - 2.2FT[facility] RemisolALP [Catalytic activity/Vol]106 [iU]/dHigh21 - 98 Int._Unit/LFTMC Remisol ALT No additional P-5'-P [Catalytic activity/Vol]46 [iU]/dNormal6 - 46 Int._Unit/LFTMC RemisolAnion gap [Moles/Vol]14 mmol/LNormal6 - 16 mEq/LFTMC RemisolAST [Catalytic activity/Vol]37 [iU]/dNormal5 - 43 Int._Unit/LFTMC Remisol Bilirubin [Mass/Vol]1.2 mg/dLHigh0.0 - 1.1 mg/dLFT RemisolBilirubin.direct [Mass/Vol]mg/dLNormal0.1 - 0.4 mg/dLFTMC RemisolBilirubin.indirect [Mass or moles/Vol]Unable to Calculate mg/dLInvalid Interpretation Code0.1 - 0.9 mg/dL [facility] RemisolCalcium [Mass/Vol]8.8 mg/dLLow8.9 - 11.1 mg/dLFTMC RemisolChloride [Moles/Vol]100 mmol/EIbi304 - 111 mmol/LFTMC RemisolCO2 [Moles/Vol]24 mmol/L Pvnbtf30 - 31 mmol/LFTMC RemisolCreatinine [Mass/Vol]1.0 mg/dLNormal0.5 - 1.3 mg/dLFTMC RemisolGFR/1.73 sq M.predicted among blacks MDRD (S/P/Bld) [Vol rate/Area]mL/min/1.73 x7Bslsak>=59mL/min/1.73 m2[facility] Chem SGFR/1.73 sq M.predicted among non-blacks MDRD (S/P/Bld) [Vol rate/Area]mL/min/1.73 e5Dtfxre >=59mL/min/1.73 m2[facility] Chem SGlobulin (S) [Mass/Vol]3.6 g/dLNormal1.4 - 4.0 gm/dLFTMC RemisolGlucose [Mass/Vol]104 mg/gUHdvjab68 - 199 mg/dLFTMC Remisol Potassium [Moles/Vol]3.6 mmol/LNormal3.5 - 5.3 mmol/LFTMC RemisolProtein [Mass/Vol]7.9 g/dLHigh6.0 - 7.8 gm/dLFTMC RemisolSodium [Moles/Vol]134 mmol/LLow 135 - 145 mmol/LFTMC RemisolUrea nitrogen [Mass/Vol]10 mg/dLNormal5 - 21 mg/dL [facility] RemisolUrea nitrogen/Creatinine [Mass ratio]10 mg/xwAbkbfa04 - 20FTMC RemisolHEMATOLOGYOrdered By: Amairani Jenkins on 06-05-3337Vwfgmncpvtsf Ql (Bld) Present (01/31/23 2:10 PM)NormalFTMC HemeManSSErythrocyte [...] fLNormal6.4 - 10.8 fLFTMC HemeAutoSSPlatelets (Bld) [#/Vol]471.0 E9/YCrcwbq725.0 - 500.0 E9/LFTMC HemeAutoSSRBC (Bld) [#/Vol]4.3 E12/LNormal4.3 [...] - 0.5 E9/L [facility] HemeAutoSSLymphocytes/100 WBC (Bld)31.7 %Gkgoad15.0 - 50.0 %[facility] HemeAutoSS Lymphocytes/Leukocytes Auto (Bld) [Pure # fraction]2.4 E9/LNormal1.0 - 4.0 E9/L [facility] HemeAutoSSMonocytes/100 WBC (Bld)9.1 %Normal4.0 - 14.0 %[facility] HemeAutoSS Monocytes/Leukocytes Auto (Bld) [Pure # fraction]0.7 E9/LNormal0.2 - 1.0 E9/L [facility] HemeAutoSSNeutrophils/100 WBC (Bld)57.4 %Koiwdy26.0 - 75.0 %[facility] HemeAutoSS Neutrophils/Leukocytes Auto (Bld) [Pure # fraction]4.3 E9/LNormal2.0 - 7.5 E9/L [facility] HemeAutoSSSEROLOGYOrdered By: Patricia Newton on 96-63-5637GQW.beta subunit (U) [Moles/Vol]NegativeNormalFT Man SeroURINALYSISOrdered By: Solomon Leal on 65-86-9520Iabcwwogz Ql (U)Negative (01/31/23 1:57 PM)NormalNegativeFTMC UA Auto SSClarity (U)Clear (01/31/23 1:57 PM)NormalClearFTMC UA Auto SSColor (U)Yellow (01/31/23 1:57 PM)NormalYellowFTMC UA Auto SSEpithelial cells.squamous LM.HPF (Urine sed) [#/Area]3-4 /HPFNormal0-2/HPFFTMC UA Auto SSGlucose Test strip (U) [Mass/Vol]Negative (01/31/23 1:57 PM)NormalNegativeFT UA Auto SSHemoglobin Ql (U)Negative (01/31/23 1:57 PM)NormalNegativeFTMC UA Auto SSKetones (U) [Mass/Vol]Negative (01/31/23 1:57 PM)NormalNegativeFT UA Auto SSLithium.plasma/Lorraine.RBC (Bld) [Mass ratio]0-3 /HPFNormal0-3/HPFFTMC UA Auto SSNitrite Ql (U)Negative (01/31/23 1:57 PM)NormalNegativeCARL [facility] UA Auto SSpH (U)6.0 *NA* (01/31/23 1:57 PM)Invalid Interpretation Code5.0 - 9.0[facility] UA Auto SSProtein (U) [Mass/Vol]Negative (01/31/23 1:57 PM)NormalNegativeCARL [facility] UA Auto SSSpecific gravity (U) [Rel density] 1.010 *NA* (01/31/23 1:57 PM)Invalid Interpretation Code1.005 - 1.030[facility] UA Auto SSUA Spec DescClean Catch (01/31/23 1:57 PM)NormalCARL [facility]ERT [facility] UA Auto SSUrobilinogen Qn (U)0.1430192 {Aspen'U}/dL Normal0.0 - 1.0 EU/dLCARL [facility]BERT [facility] UA Auto SSWBC Auto Ql (U)Negative (01/31/23 1:57 PM)NormalNegativeCAR[facility] UA Auto SSWBC LM.HPF (Urine sed) [#/Area]0-5 /HPFNormal0-5/HPFCARL [facility]ERT [facility] UA Auto SSBLOOD BANKOrdered By: Teena Quiroz on 22-61-4941EYA/Rh InterpPositiveInvalid Interpretation CodeCARL [facility] BB SubsectionABSC Gel InterpNegative (12/30/22 11:28 AM)NormalCARL [facility] BB SubsectionCHEMISTRYOrdered By: SYSTEM SYSTEM on 54-19-9730Fbpxn gap [Moles/Vol]12 mmol/LNormal6 - 16 mEq/LFTMC RemisolCalcium [Mass/Vol]8.6 mg/dLLow8.9 - 11.1 mg/dLFTMC RemisolChloride [Moles/Vol]103 mmol/L Qbqegd195 - 111 mmol/LFTMC RemisolCO2 [Moles/Vol]26 mmol/PDgkoof95 - 31 mmol/L [facility] RemisolCreatinine [Mass/Vol]0.9 mg/dLNormal0.5 - 1.3 mg/dLFTMC Remisol GFR/1.73 sq M.predicted among blacks MDRD (S/P/Bld) [Vol rate/Area]mL/min/1.73 j6Pcweoi>=59mL/min/1.73 m2FT Chem SGFR/1.73 sq M.predicted among non-blacks MDRD (S/P/Bld) [Vol rate/Area]mL/min/1.73 g6Plgusb>=59mL/min/1.73 m2FT Chem S Glucose [Mass/Vol]105 mg/fLJvxgiy57 - 199 mg/dLFTMC RemisolPotassium [Moles/Vol] 3.8 mmol/LNormal3.5 - 5.3 mmol/LFTMC RemisolSodium [Moles/Vol]137 mmol/LNormal 135 - 145 mmol/LFTMC RemisolUrea nitrogen [Mass/Vol]17 mg/dLNormal5 - 21 mg/dL [facility] RemisolUrea nitrogen/Creatinine [Mass ratio]19 mg/suFyguxu70 - 20FT[facility] RemisolCOAGULATIONOrdered By: Courtney Tnag on 50-50-5619gSQD Coag (PPP) [Time]31.5 eYizoon68.1 - 36.5 second(s)[facility] Auto CoagINR Coag (PPP) [Relative time]1.0 {INR}Invalid Interpretation CodeFTMC Auto CoagPT Coag (PPP) [Time]11.7 sNormal 9.4 - 12.5 second(s)[facility] Auto CoagHEMATOLOGYOrdered By: SYSTEM SYSTEM on 73-53-9188Uwuueqnrn/100 WBC (Bld)1.2 %Normal0.0 - 2.0 %[facility] HemeAutoSS Basophils/Leukocytes Auto (Bld) [Pure # fraction]0.1 E9/LNormal0.0 - 0.2 E9/L [facility] HemeAutoSSEosinophils/100 WBC (Bld)4.1 %Normal0.0 - 8.0 %[facility] HemeAutoSS Eosinophils/Leukocytes Auto (Bld) [Pure # fraction]0.2 E9/LNormal0.0 - 0.5 E9/L [facility] HemeAutoSSLymphocytes/100 WBC (Bld)40.5 %Pcgdlf41.0 - 50.0 %[facility] HemeAutoSS Lymphocytes/Leukocytes Auto (Bld) [Pure # fraction]2.3 E9/LNormal1.0 - 4.0 E9/L [facility] HemeAutoSSMonocytes/100 WBC (Bld)7.6 %Normal4.0 - 14.0 %[facility] HemeAutoSS Monocytes/Leukocytes Auto (Bld) [Pure # fraction]0.4 E9/LNormal0.2 - 1.0 E9/L [facility] HemeAutoSSNeutrophils/100 WBC (Bld)46.6 %Yrhqbm45.0 - 75.0 %[facility] HemeAutoSS Neutrophils/Leukocytes Auto (Bld) [Pure # fraction]2.6 E9/LNormal2.0 - 7.5 E9/L [facility] HemeAutoSSHEMATOLOGYOrdered By: Courtney Case on 84-29-6774Qeqpmhexltd distribution width (RBC) [Ratio]14.1 %Qstujn14.9 - 14.2 %[facility] HemeAutoSS Hematocrit (Bld) [Volume fraction]31.5 %Low34.0 - 46.0 %[facility] HemeAutoSS Hemoglobin (Bld) [Mass/Vol]10.0 g/dLLow12.0 - 16.0 gm/dLFTMC HemeAutoSSMCH (RBC) [Entitic mass]25.3 pgLow27.0 - 34.0 pgFTMC HemeAutoSSMCHC (RBC) [Mass/Vol]31.8 g/jHYfzcnf66.4 - 36.0 gm/dLFTMC HemeAutoSSMCV (RBC) [Entitic vol]79.6 fLLow80.0 - 100.0 fLFTMC HemeAutoSSPlatelet mean volume (Bld) [Entitic vol]7.7 fLNormal6.4 - 10.8 fLFTMC HemeAutoSSPlatelets (Bld) [#/Vol]264.0 E9/GSykemd624.0 - 500.0 E9/LFTMC HemeAutoSSRBC (Bld) [#/Vol]4.0 E12/LLow4.3 - 5.9 E12/LFTMC HemeAutoSS WBC corrected for nucl RBC Auto (Bld) [#/Vol]5.7 E9/LNormal4.0 - 11.0 E9/LFTMC HemeAutoSSURINALYSISOrdered By: Courtney Case on 21-89-8080Tpnshfzw LM Ql (Urine sed)Trace /HPFNormalTrace/HPFFTMC UA Auto SSBilirubin Ql (U)Negative (12/30/22 8:53 AM)NormalNegativeCAR[facility] UA Auto SSClarity (U)Clear (12/30/22 8:53 AM)NormalClearFOKLAHOMA HOSPITAL ASSOCIATION UA Auto SSColor (U)Yellow (12/30/22 8:53 AM)NormalYellowCARL [facility]ERT [facility] [place] UA Auto SSEpithelial cells.squamous LM.HPF (Urine sed) [#/Area]0-2 /HPFNormal0-2/HPFCARL [facility]BERT [facility] UA Auto SSGlucose Test strip (U) [Mass/Vol]Negative (12/30/22 8:53 AM)NormalNegativeCARL [facility] UA Auto SSHemoglobin Ql (U)2+ *ABN* (12/30/22 8:53 AM)Invalid Interpretation CodeNegativeCARL [facility] [place] UA Auto SSKetones (U) [Mass/Vol]Negative (12/30/22 8:53 AM)NormalNegativeCAR[facility] UA Auto SSLithium.plasma/Lorraine.RBC (Bld) [Mass ratio]4-20 /HPFNormal0-3/HPFCARL [facility] UA Auto SSNitrite Ql (U)Negative (12/30/22 8:53 AM)NormalNegativeCAR[facility] UA Auto SSpH (U)6.0 *NA* (12/30/22 8:53 AM)Invalid Interpretation Code5.0 - 9.0[facility] UA Auto SSProtein (U) [Mass/Vol]Negative (12/30/22 8:53 AM)NormalNegativeCAR[facility] UA Auto SSSpecific gravity (U) [Rel density] 1.025 *NA* (12/30/22 8:53 AM)Invalid Interpretation Code1.005 - 1.030[facility] UA Auto SSUA Spec DescClean Catch (12/30/22 8:53 AM)NormalCARL [facility] UA Auto SSUrobilinogen Qn (U)0.7765625 {Aspen'U}/dL Normal0.0 - 1.0 EU/dLCARL [facility]BERT [facility] UA Auto SSWBC Auto Ql (U)Negative (12/30/22 8:53 AM)NormalNegativeCAR[facility] UA Auto SSWBC LM.HPF (Urine sed) [#/Area]0-5 /HPFNormal0-5/HPFCARL [facility]ERT [facility] UA Auto SSOffice Visiton [id number]-up [id number] Juhi Cope 1995 F Date Provider Department Center 12/05/2022 [id number], GINA [facility] W[facility] None Chart Close Cosign Required by: Opal Ross MD[VARUND] No family history on file Level of Service:76865 ND OFFICE/OUTPATIENT ESTABLISHED LOW MDM 20-29 MIN (GE,GC) Reason for Visit and Comments: Blood Pressure Check [299][facility] SHSProgress Noteon 01-89-1889Mzdkkwoq Note Attestation signed by Opal Ross MD at 12/05/2022 3:19 PM [facility]: This patient was seen in the [...] about 4 weeks (around 01/02/2023) for Visit .[facility] SHSProgress NoteVital signs BP 127/87 Weight 149.2lb Pulse [address] [facility] SHSProgress Noteon 73-40-7540Tkwqqarv Note Late entry due to patient care. Resident Lacy notified of B.P 138/96 heart rate 119 around 1236 see flowsheet. Also notified checked in 1 hour via orders and B.P 143/87 pulse 111. Clarified if should check in 1 hour according to orders. . Also notified patient has discharge order in. Resident Lacy states No on rechecking. Ok to discharge. Will make patient aware.[facility] SHSProgress NotePOSTPARTUM VAGINAL DELIVERY POST DAY [...] Vanessa Zambrano DO 12/02/2022, 5:09 [facility]42on 68-79-19763439.5mm flanges given to patient. Encouraged her to call for observation of pump session and smaller flanges. Martha in NICU to assist with personal pump.[facility] BismarckCARECOORDon 85-23-9365NSWMBAJBR53 year old admitted for induction of labor [...] to home. Denies any concerns at this time.[facility] SHSProgress Noteon 59-76-9178Yuovtauk Note NOTE - VAGINAL DELIVERY POST DAY [...] with more than 50% of the total qrxh-xa-hssl time of the visit in counseling/coordination of care. , 9:22 [facility] QYU74mc 34-17-355414Ygmip given to patient and educated how to use and to bring to [facility] DIX90Uagebt pump use indicated for this pt. Due to: infant in [facility] Hospital breast pump, supplies kit, [...] patient to check with in [facility] for smaller flange sizesNewYork-Presbyterian Hospital SHSLabor and Delivery Noteon 64-07-4582Urpkp and Delivery Note Attestation with edits by Carol Bowdne MD at 12/01/2022 8:22 AM Procedures or Surgery: I was present for all morales elements of the procedure or surgery as described in the resident note. Vaginal Delivery Note Department of Obstetrics and Gynecology Patient: Juhi Cope : 1995 Date of delivery: 11/30/2022 Pre-operative Diagnosis: Juhi Sidhu at 35w1d 1. <37 weeks 2. 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 Bowden; Dr. Kramer Information: Information for the patient's : Francie Cope [[id number]] Information for the patient's : Francie Cope [[id number]] Description: normal Meconium Noted: No Anesthesia: epidural [...] for: RUBELLAIGG Irina Kramer, DO 11/30/2022, 4:04 AMNVib[facility] of [facility] SHSProgress Noteon 76-13-2889Zpeixyta NoteFoley catheter inserted by Andi Bacon RN, catheter drained and emptied for 900cc. Catheter secured to leg.[facility] SHSProgress NotePatient up to bathroom but remains unable to void. Bladder scan completed and reads >570. Sent secure message to Dr. Ruiz letting her know the above. Instructed to place chauhan catheter.[facility] HospitalProgress Note Secure message sent to Dr. Gamez stating patient is having difficulty voiding, patient's perineum is very swollen, and that patient was straight cathed for 950ml at noon. Received order for benadryl to help with swelling. [facility] HospitalProess NoteNutrition rescreen completed. Chart reviewed. Patient to be monitored and followed by the diet digital technician. Suad Samuels, DTNewYork-Presbyterian Hospital SHSProgress NotePatient unable to void, last straight cathed at 0400. Bladder scan obtained for >928 ml, fundus +2 and shifted to right. Patient straight cathed on attempt x2 by Andi Bacon RN for 950cc. Will continue to monitor.[facility] SHSCAREPLNon 72-90-3498VGAXNLGHuy patient will continue to make cervical change. Clotilde Mg, RNNoCHI St. [facility] SHSLaboratory - Hematology and Cell countsOrdered By: Lucrecia Cervantes on 04-32-3629Pqooshvmt (Bld) [#/Vol]386 10*3/uL140 - 440 10*3/uLSuuniversity hospitals samaritan medical center HealthPlatelets (Bld) [#/Vol]Ordered By: Lucrecia Cervantes on 01-48-2705Tbvlgnxvfvqvpg and review of laboratory resultsNormal [facility]. agalactiae DNA TENA+probe Ql (Unsp spec)on 11-29-2022 Group B Strep ScreenNot detectedNot [facility] HealthInterpretation and review of laboratory resultsNoACMC Healthcare SystemMethodology: real-time PCRSBroadlawns Medical CenterABO and Rh group Confirm Nom (Bld)on 03-04-1219QEZ group Nom (Bld)OSumma HealthD Ag Ql (RBC)PositiveSumFisher-Titus Medical Center HealthBlood type and Crossmatch panel (Bld)on 71-87-9661BJY group Nom (Bld)OSumma HealthBlood group antibody screen GEL QlNegativeSumma HealthD Ag Ql (RBC)PositiveSumwi Healthmma HealthCBC panel Auto (Bld)Ordered By: Lauren Ayers on 79-97-1800Obfoyowrcla distribution width (RBC) [Ratio]13.3 %11.5 - 14.5 %[facility] HealthHematocrit (Bld) [Volume fraction]33.8 %Low35.0 - 47.0 %[facility]ma HealthHemoglobin (Bld) [Mass/Vol] 11.2 g/dLLow11.7 - 16.0 g/dLSumma HealthInterpretation and review of laboratory resultsAbnormalSParkview Health Montpelier HospitalH (RBC) [Entitic mass]28.0 pg26.0 - 34.0 pgSParkview Health Montpelier HospitalHC (RBC) [Mass/Vol]33.1 %32.0 - 36.0 %[facility] Centera HealthMCV (RBC) [Entitic vol]84.4 fL80.0 - 98.0 fLSumma HealthPlatelet mean volume (Bld) [Entitic vol]8.3 fL7.4 - 12.4 fLSumma HealthPlatelets (Bld) [#/Vol]319 10*3/uL140 - 440 10*3/uL Summa HealthRBC (Bld) [#/Vol]4.00 10*6/uL3.8 - 5.20 10*6/uLSumma HealthWBC (Bld) [#/Vol]18.9 10*3/uLHigh3.6 - 10.7 10*3/uLSumma HealthGuernsey Memorial Hospital HealthComprehensive metabolic 1998 panelon 88-82-5942Bcekbfz [Mass/Vol]3.9 g/dL3.5 - 5.0 g/dLSumma HealthALP [Catalytic [...] M.predicted MDRD (S/P/Bld) [Vol rate/Area]- [facility] HospitalComment on above: Calculation based on the Chronic Kidney Disease Epidemiology Collaboration (CKD- EPI) equation refitwithout adjustment for raceGlucose [Mass/Vol]158 mg/fBRjoi93 - 100 mg/dLSumma HealthInterpretation and review of laboratory resultsAbnormal [facility] HealthPotassium [Moles/Vol]4.1 mmol/L3.5 - 5.1 mmol/LSumma HealthProtein [Mass/Vol]7.5 g/dL6.3 - 8.2 g/dLSumma HealthSodium [Moles/Vol]133 mmol/MXem275 - 145 mmol/LSumma HealthUrea nitrogen [Mass/Vol]5 mg/dLLow7 - 17 mg/dLSumma HealthSumma HealthLaboratory - Hematology and Cell countsOrdered By: Shruthi Fontana on 03-80-6168Bauftrtrg (Bld) [#/Vol]335 10*3/uL140 - 440 10*3/uLSumma HealthPlatelets (Bld) [#/Vol]Ordered By: Shruthi Fontana on 11-28-2022 Interpretation and review of laboratory resultsNormMiddletown Hospital Health CHEMISTRYOrdered By: Beta Dash on 37-01-7184Hmfk T4 index Calc [Mass/Vol] 5.98 ng/dLNormal5.90 - [...] Calculate mg/dLInvalid Interpretation Code0.1 - 0.9 mg/dL FT RemisolChloride [Moles/Vol]102 mmol/IDwbfjw191 - 111 mmol/LFTMC RemisolCO2 [Moles/Vol]18 mmol/LLow21 - 31 mmol/LFTMC RemisolCreatinine [Mass/Vol]0.6 mg/dL Normal0.5 - 1.3 mg/dLFTMC RemisolGFR/1.73 sq M.predicted among blacks MDRD (S/P/Bld) [Vol rate/Area]mL/min/1.73 w5Gzjfnl>=59mL/min/1.73 m2FTMC Chem S GFR/1.73 sq M.predicted among non-blacks MDRD (S/P/Bld) [Vol rate/Area] mL/min/1.73 b7Oygaoz>=59mL/min/1.73 m2[facility] Chem SGlobulin (S) [Mass/Vol]4.0 g/dL Normal1.4 - 4.0 gm/dLCARL [facility] RemisolPotassium [Moles/Vol]3.7 mmol/LNormal3.5 - 5.3 mmol/LFTMC RemisolProtein [Mass/Vol]7.1 g/dLNormal6.0 - 7.8 gm/dLCARL [facility] Remisol Sodium [Moles/Vol]132 mmol/OCfl759 - 145 mmol/LFTMC RemisolUrate [Mass/Vol]4.9 mg/dLNormal2.2 - 7.4 mg/dLCARL [facility] RemisolUrea nitrogen [Mass/Vol]7 mg/dLNormal5 - 21 mg/dLCARL [facility] RemisolCOAGULATIONOrdered By: Amairani Jenkins on 12-18-7297pIGA Coag (PPP) [Time]25.3 gYmuhcw69.1 - 36.5 second(s)[facility] Auto Coag Fibrin+Fibrinogen fragments (S) [Mass/Vol]>10 and <40 *ABN* (11/27/22 3:14 PM)Invalid Interpretation Code<10[facility] Man SeroFibrinogen Coag (PPP) [Mass/Vol]539 mg/gZQzyb333 - 393 mg/dLCARL [facility] Auto CoagINR Coag (PPP) [Relative time]0.9 {INR}Invalid Interpretation CodeCARL [facility] Auto CoagPT Coag (PPP) [Time]10.1 sNormal9.4 - 12.5 second(s)[facility] Auto CoagHEMATOLOGYOrdered By: Raquel rAteaga on 20-98-0868Nvcogmciveb distribution width (RBC) [Ratio]12.9 %Wfmfpg07.9 - 14.2 % [facility] HemeAutoSSHematocrit (Bld) [Volume fraction]34.2 %Zrbpbw28.0 - 46.0 %[facility] HemeAutoSSHemoglobin (Bld) [Mass/Vol]11.0 g/dLLow12.0 - 16.0 gm/dLCAR[facility] HemeAutoSSMCH (RBC) [Entitic mass]27.3 brNdrftj45.0 - 34.0 pgFTMC HemeAutoSSMCHC (RBC) [Mass/Vol]32.3 g/dWBgalqn78.4 - 36.0 gm/dLFT HemeAutoSSMCV (RBC) [Entitic vol]84.6 tKXgvhkt99.0 - 100.0 fLFT HemeAutoSSPlatelet mean volume (Bld) [Entitic vol]8.2 fLNormal6.4 - 10.8 fLFT HemeAutoSSPlatelets (Bld) [#/Vol]273.0 E9/CKrdwrr145.0 - 500.0 E9/LFC HemeAutoSSRBC (Bld) [#/Vol]4.0 E12/LLow4.3 - 5.9 E12/LFOKLAHOMA HOSPITAL ASSOCIATION HemeAutoSSWBC corrected for nucl RBC Auto (Bld) [#/Vol]15.7 E9/LHigh4.0 - 11.0 E9/LFC HemeAutoSSComment on above:Result Comment: Slide reviewed by ts Unable to obtain accurate platelet count due to platelet clumping. Platelet count estimate appears normal on slide..URINALYSISOrdered By: Amairani Jenkins on [id number] Ql (U)Negative (11/27/22 1:55 PM)NormalNegativeCARL [facility] [place] U[place] Auto SSClarity (U)Clear (11/27/22 1:55 PM)NormalClearFOKLAHOMA HOSPITAL ASSOCIATION UA Auto SSColor (U)Yellow (11/27/22 1:55 PM)NormalYellowFT UA Auto SSEpithelial cells.squamous LM.HPF (Urine sed) [#/Area]3-4 /HPFNormal0-2/HPFFTMC UA Auto SSGlucose Test strip (U) [Mass/Vol]Negative (11/27/22 1:55 PM)NormalNegativeCARL [facility] [place] UA Auto SSHemoglobin Ql (U)1+ *ABN* (11/27/22 1:55 PM)Invalid Interpretation CodeNegativeFT UA Auto SSKetones (U) [Mass/Vol]Negative (11/27/22 1:55 PM)NormalNegativeCARL [facility] [place] UA Auto SSLithium.plasma/Lorraine.RBC (Bld) [Mass ratio]4-20 /HPFNormal0-3/HPFCARL ALBERT [facility] [place] UA Auto SSNitrite Ql (U)Negative (11/27/22 1:55 PM)NormalNegativeCARL [facility] [place] UA Auto SSpH (U)6.5 *NA* (11/27/22 1:55 PM)Invalid Interpretation Code5.0 - 9.0[facility] [place] UA Auto SSProtein (U) [Mass/Vol]Negative (11/27/22 1:55 PM)NormalNegativeCARL [facility] [place] UA Auto SSSpecific gravity (U) [Rel density] 1.010 *NA* (11/27/22 1:55 PM)Invalid Interpretation Code1.005 - 1.030[facility] [place] UA Auto SSUA Spec DescClean Catch (11/27/22 1:55 PM)NormalCARL [facility]BERT [facility] [place] UA Auto SSUrobilinogen Qn (U)0.1299572 {Aspen'U}/dL Normal0.0 - 1.0 EU/dLCARL ALBERT [facility] [place] UA Auto SSWBC Auto Ql (U)Negative (11/27/22 1:55 PM)NormalNegativeCARL [facility] [place] [facility]A Auto SSWBC LM.HPF (Urine sed) [#/Area]0-5 /HPFNormal0-5/HPFCARL [facility]BERT [facility] [place] UA Auto SSCHEMISTRYOrdered By: SYSTEM SYSTEM on 07-14-2022 Albumin [Mass/Vol]3.6 g/dLNormal3.3 - 5.0 gm/dLCARL [facility] RemisolAlbumin/Globulin [Mass ratio]1.1 {ratio}Normal1.1 - 2.2[facility] RemisolALP [Catalytic activity/Vol]41 [iU]/jZkkdkd30 - 98 Int._Unit/LFTMC RemisolALT No additional P-5'-P [Catalytic activity/Vol]19 [iU]/dNormal6 - 46 Int._Unit/LFTMC RemisolAnion gap [Moles/Vol] 11 mmol/LNormal6 - 16 mEq/LFTMC RemisolAST [Catalytic activity/Vol]21 [iU]/d Normal5 - 43 Int._Unit/LFTMC RemisolBilirubin [Mass/Vol]0.7 mg/dLNormal0.0 - 1.1 mg/dLCARL [facility] RemisolBilirubin.direct [Mass/Vol]0.1 mg/dLNormal0.1 - 0.4 mg/dLFTMC RemisolBilirubin.indirect [Mass or moles/Vol]0.6 mg/dLNormal0.1 - 0.9 mg/dLFTMC RemisolCalcium [Mass/Vol]8.9 mg/dLNormal8.9 - 11.1 mg/dLFTMC RemisolChloride [Moles/Vol]107 mmol/ZAjsugi554 - 111 mmol/LFTMC RemisolCO2 [Moles/Vol]22 mmol/L Vntzru34 - 31 mmol/LFTMC RemisolCreatinine [Mass/Vol]0.6 mg/dLNormal0.5 - 1.3 mg/dLFTMC RemisolGFR/1.73 sq M.predicted among blacks MDRD (S/P/Bld) [Vol rate/Area]mL/min/1.73 h5Grwtdd>=59mL/min/1.73 m2[facility] Chem SGFR/1.73 sq M.predicted among non-blacks MDRD (S/P/Bld) [Vol rate/Area]mL/min/1.73 x5Oefcza >=59mL/min/1.73 m2[facility] Chem SGlobulin (S) [Mass/Vol]3.3 g/dLNormal1.4 - 4.0 gm/dLFTMC RemisolGlucose [Mass/Vol]99 mg/mJZclpwy26 - 199 mg/dLFTMC Remisol Potassium [Moles/Vol]3.5 mmol/LNormal3.5 - 5.3 mmol/LFTMC RemisolProtein [Mass/Vol]6.9 g/dLNormal6.0 - 7.8 gm/dLFTMC RemisolSodium [Moles/Vol]136 mmol/L Tytyvy022 - 145 mmol/LFTMC RemisolUrea nitrogen [Mass/Vol]8 mg/dLNormal5 - 21 mg/dLFTMC RemisolUrea nitrogen/Creatinine [Mass ratio]13 mg/rbIlodoy43 - 20[facility] RemisolHEMATOLOGYOrdered By: SYSTEM SYSTEM on 88-38-4366Dqvqnqcjz/100 WBC (Bld) 0.3 %Normal0.0 - 2.0 %[facility] [...] 7.5 E9/LFTMC HemeAutoSSHEMATOLOGYOrdered By: Teena Quiroz on 43-10-7652Ybgvzpkcmje distribution width (RBC) [Ratio]12.9 %Normal 10.9 - 14.2 %[facility] HemeAutoSSHematocrit (Bld) [Volume fraction]33.6 %Low34.0 - 46.0 %[facility] HemeAutoSSHemoglobin (Bld) [Mass/Vol]11.5 g/dLLow12.0 - 16.0 gm/dL [facility] HemeAutoSSMCH (RBC) [Entitic mass]28.5 lrInoyyw74.0 - 34.0 pgFTMC HemeAutoSSMCHC (RBC) [Mass/Vol]34.1 g/aTUhxyqr07.4 - 36.0 gm/dLFTMC HemeAutoSS MCV (RBC) [Entitic vol]83.5 nCSfzsqi68.0 - 100.0 fLFTMC HemeAutoSSPlatelet mean volume (Bld) [Entitic vol]8.1 fLNormal6.4 - 10.8 fLCARL [facility] HemeAutoSSPlatelets (Bld) [#/Vol]271.0 E9/LUebysc600.0 - 500.0 E9/[facility] HemeAutoSSRBC (Bld) [#/Vol] 4.0 E12/LLow4.3 - 5.9 E12/[facility] HemeAutoSSWBC corrected for nucl RBC Auto (Bld) [#/Vol]13.9 E9/LHigh4.0 - 11.0 E9/[facility] HemeAutoSSURINALYSISOrdered By: Deirdre Gilliam on 27-06-4829Cmcwdzjq LM Ql (Urine sed)Trace /HPFNormalTrace/HPFCARL ALBERT [facility] UA Auto SSBilirubin Ql (U)Negative (07/14/22 5:00 AM)NormalNegativeCARL [facility] UA Auto SSClarity (U)Clear (07/14/22 5:00 AM)NormalClearFOKLAHOMA HOSPITAL ASS[facility]IATION UA Auto SSColor (U)Yellow (07/14/22 5:00 AM)NormalYellowCARL ALBERT [facility] UA Auto SSEpithelial cells.squamous LM.HPF (Urine sed) [#/Area]3-4 /HPFNormal0-2/HPFCARL [facility] UA Auto SSGlucose Test strip (U) [Mass/Vol]Negative (07/14/22 5:00 AM)NormalNegativeCARL [facility] UA Auto SSHemoglobin Ql (U)Trace *ABN* (07/14/22 5:00 AM)Invalid Interpretation CodeNegativeCARL [facility] UA Auto SSKetones (U) [Mass/Vol]Negative (07/14/22 5:00 AM)NormalNegativeCARL [facility] UA Auto SSLithium.plasma/Lorraine.RBC (Bld) [Mass ratio]0-3 /HPFNormal0-3/HPFCARL [facility] UA Auto SSMucus Ql (Urine sed)Trace (07/14/22 5:00 AM)NormalCARL [facility] UA Auto SSNitrite Ql (U)Negative (07/14/22 5:00 AM)NormalNegativeCARL [facility] UA Auto SSpH (U)6.0 *NA* (07/14/22 5:00 AM)Invalid Interpretation Code5.0 - 9.0[facility] UA Auto SSProtein (U) [Mass/Vol]Negative (07/14/22 5:00 AM)NormalNegativeCARL [facility] UA Auto SSSpecific gravity (U) [Rel density] 1.020 *NA* (07/14/22 5:00 AM)Invalid Interpretation Code1.005 - 1.030[facility] UA Auto SSUA Spec DescClean Catch (07/14/22 5:00 AM)NormalCARL [facility]BERT [facility] UA Auto SSUrobilinogen Qn (U)0.7110316 {Aspen'U}/dLNormal0.0 - 1.0 EU/dLCARL [facility] UA Auto SSWBC Auto Ql (U)Negative (07/14/22 5:00 AM)NormalNegativeCARL [facility] UA Auto SSWBC LM.HPF (Urine sed) [#/Area]0-5 /HPFNormal0-5/HPFCARL ALBERT [facility] UA Auto SSCHEMISTRYOrdered By: SYSTEM SYSTEM on 07-58-8392Altenbh [Mass/Vol]4.4 g/dLNormal3.3 - 5.0 gm/dLFTMC Remisol Albumin/Globulin [Mass ratio]1.1 {ratio}Normal1.1 - 2.2[facility] RemisolALP [Catalytic activity/Vol]64 [iU]/yZiqizk74 - 98 Int._Unit/LFTMC RemisolALT No additional P-5'-P [Catalytic activity/Vol]107 [iU]/dHigh6 - 46 Int._Unit/LFTMC RemisolAST [Catalytic activity/Vol]63 [iU]/dHigh5 - 43 Int._Unit/LFT[facility] Remisol Bilirubin [Mass/Vol]1.5 mg/dLHigh0.0 - 1.1 mg/dLFTMC RemisolBilirubin.direct [Mass/Vol]0.2 mg/dLNormal0.1 - 0.4 mg/dLFTMC RemisolBilirubin.indirect [Mass or moles/Vol]1.3 mg/dLHigh0.1 - 0.9 mg/dLFTMC RemisolCholesterol [Mass/Vol]193 mg/zFPtsqre119 - 200 mg/dLFTMC RemisolCholesterol in HDL [Mass/Vol]64 mg/dL Invalid Interpretation CodeFTMC RemisolCholesterol in LDL [Mass/Vol]116 mg/dL Normal<=129mg/dLFTMC RemisolCholesterol in VLDL [Mass/Vol]13 mg/dLNormal7 - 40 mg/dLFTMC RemisolGlobulin (S) [Mass/Vol]3.9 g/dLNormal1.4 - 4.0 gm/dLFT[facility] RemisolProtein [Mass/Vol]8.3 g/dLHigh6.0 - 7.8 gm/dLFTMC RemisolTriglyceride [Mass/Vol]67 mg/dLNormal<=149mg/dLFTMC RemisolCOAGULATIONOrdered By: Courtney Case on 88-67-3661JLQ Coag (PPP) [Relative time]1.0 {INR}Invalid Interpretation Code [facility] Auto CoagPT Coag (PPP) [Time]12.4 pZezoag77.2 - 12.9 second(s)[facility] Auto CoagHEMATOLOGYOrdered By: SYSTEM SYSTEM on 11-91-3209Udpzpbgrm/100 WBC (Bld)0.7 %Normal0.0 - 2.0 %[facility] HemeAutoSSBasophils/Leukocytes Auto (Bld) [Pure # fraction]0.0 E9/LNormal0.0 - 0.2 E9/LFTMC HemeAutoSSEosinophils/100 WBC (Bld)3.2 %Normal0.0 - 8.0 %[facility] HemeAutoSSEosinophils/Leukocytes Auto (Bld) [Pure # fraction]0.2 E9/LNormal0.0 - 0.5 E9/LFTMC HemeAutoSSLymphocytes/100 WBC (Bld) 31.9 %Vvlwpx43.0 - 50.0 %[facility] HemeAutoSSLymphocytes/Leukocytes Auto (Bld) [Pure # fraction]1.9 E9/LNormal1.0 - 4.0 E9/LFTMC HemeAutoSSMonocytes/100 WBC (Bld)9.1 %Normal4.0 - 14.0 %[facility] HemeAutoSSMonocytes/Leukocytes Auto (Bld) [Pure # fraction]0.5 E9/LNormal0.2 - 1.0 E9/LFTMC HemeAutoSSNeutrophils/100 WBC (Bld) 55.1 %Ohnswp67.0 - 75.0 %[facility] HemeAutoSSNeutrophils/Leukocytes Auto (Bld) [Pure # fraction]3.3 E9/LNormal2.0 - 7.5 E9/LFTMC HemeAutoSSHEMATOLOGYOrdered By: Chivo Ward on 86-96-9545Lgnscqegmjb distribution width (RBC) [Ratio]12.9 % Rqajcd01.9 - 14.2 %[facility] HemeAutoSSHematocrit (Bld) [Volume fraction]40.1 %Normal 34.0 - 46.0 %[facility] HemeAutoSSHemoglobin (Bld) [Mass/Vol]13.2 g/xMUbiztv17.0 - 16.0 gm/dLFTMC HemeAutoSSMCH (RBC) [Entitic mass]27.7 orEgossz51.0 - 34.0 pgFTMC HemeAutoSSMCHC (RBC) [Mass/Vol]32.8 g/sORzwqig23.4 - 36.0 gm/dLFTMC HemeAutoSS MCV (RBC) [Entitic vol]84.3 xSMdbmoc29.0 - 100.0 fLFTMC HemeAutoSSPlatelet mean volume (Bld) [Entitic vol]8.5 fLNormal6.4 - 10.8 fLFTMC HemeAutoSSPlatelets (Bld) [#/Vol]299.0 E9/WWegwxy749.0 - 500.0 E9/LFTMC HemeAutoSSRBC (Bld) [#/Vol] 4.8 E12/LNormal4.3 - 5.9 E12/LFTMC HemeAutoSSWBC corrected for nucl RBC Auto (Bld) [#/Vol]5.9 E9/LNormal4.0 - 11.0 E9/LFC HemeAutoSSLMPon 68-96-1445Wzzn risk assessmenta) No falls within the last awlqUT-ALCFZ-Xucydu 320 Work Phone: Last menstrual period start vnryruicteYD-VJBLE-Jinfek 320 Work Phone: Tobacco use status CPHSb) XpFW-BMPCC-Tgmiml 320 Work Phone: OB/WATER VALVE REPAIRER - Office Visiton 95-49-6588SZ/WATER VALVE REPAIRER - Office VisitDiagnoses/Problems Assessed Endometriosis (617.9) (N80.9) Orders Start: Orilissa 200 MG Oral Tablet; take 1 tablet by mouth twice a day Provider Impressions 26 yo 1. 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 History of Present Pnphnpr87 yo presents as a follow up for [...] again engaged x 1 year working at [employer] [place] Review of Systems Constitutional: no fever, no [...] hours Vitals Vital Signs Recorded: 09Feb2022 11:41AM Cfzhfbkj621 Ktgcaraxe38 Height5 ft 2 in Szejbc314 lb BMI Shlavvglvx05.51 kg/m2 BSA Calculated1.61 Tobacco Useb) No Fall [...] NormalUH TouchworksXR KNEE LEFT (MIN 4 VIEWS)on 27-26-1714RV KNEE LEFT (MIN 4 VIEWS)EXAM: XR KNEE [...] by: Joe Lopez MD 09/29/21 Final resultNormalMercy Marcin San Juan HospitalOB/WATER VALVE REPAIRER - Office Visiton 62-75-8309DA/WATER VALVE REPAIRER - Office VisitDiagnoses/Problems Assessed Anxiety (300.00) (F41.9) Orders Start: FLUoxetine HCl - 20 MG Oral Capsule; TAKE 1 CAPSULE Daily Provider Impressions 26 yo 1. 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 History of Present Itzubhu1 yo with endometriosis was on norethindrone d/c'd [...] Every 6 hours Vitals Vital Signs Recorded: 90Ktf9781 01:19PM Dspztqdg350 Lwtsdpusp14 Height5 ft 2 in Hxkxra833 lb BMI Xfegitbwjl15.58 kg/m2 BSA Calculated1.53 Tobacco Useb) No Fall Screeninga) No falls within the last year JTN00Fee1616 Pain Scale0 Signatures Electronically signed by : Charlene Rodriguez DO; Jun 03 2021 10:55AM EST (Author) NormalUH TouchworksChlamydia sp identified Org specific cx Nom (Genital specimen)Ordered By: Jackelyn Dela Cruz on 16-70-8989Jfevrerz Chlamydia Screen NegativeNegativeSumwi HealthHBV surface Ag IA Qlon 58-59-0850Lwhsnatq Hepatitis B Surface AgNegativeNegative, None DetectedSumma HealthHIV 1+2 Ab and HIV1 p24 Ag IA.rapid Nom (S/P/Bld)on 24-73-0985TFF-1/HIV-2 AbNegativeSumma HealthNo Panel Informationon 63-21-8182Iiakxbrw Gonorrhea ScreenNegativeNegativeSumma Health External Rubella IGG QuantitationPositiveSumma HealthSumma HealthNo Panel InformationOrdered By: Jackelyn Dela Cruz on 65-69-5616Emhzm HealthReagin Ab RPR Ql (S)on 15-81-3724Rytjpgjs RPRNon-ReactiveBorderline, Nonreactive, Weakly Reactive, EquivocalSumma HealthOB/WATER VALVE REPAIRER - Office Visiton 33-17-0595PY/WATER VALVE REPAIRER - Office VisitDiagnoses/Problems Assessed Endometriosis (617.9) (N80.9) Never smoker Orders Stop: Norethindrone Acetate 5 MG Oral Tablet Tobacco Use Screening; Status:Complete; Done: 18Pte3112 Provider Impressions 26 yo 1. endometriosis: rx'd norethindrone referral to pelvic floor PT rtc in 3-6 months if continues to have pain, will consider centrally acting neuromodulator Chief Complaint Patient presents today for f/u for endometriosis PAP per patient 2019 [facility] Pharmacy Director declined -CATY,LOOP CUTTER LMP 04/11/21 History of Present Lmxotor21 yo with endometriosis bleeding once per month, [...] DO; Apr 20 2021 11:04AM EST (Author) [facility] TouchworksTobacco Screening.on 77-21-8652Xlgy risk assessmenta) No falls within the last nkkdOC-ZDKRD-Foksmz 320 Work Phone: Laso menstrual period start yxbi48Tlw5795 UZ-ZQMAZ-Evazkc 320 Work Phone: Tobacco Screening.b) DnKJ-UVCPX-Gwsfxg 320 Work Phone: Radiologyon 33-97-5331LY Kidney - bilateralNormal OB-Pwfcics-Dowzvkbsb Work Phone: us RENAL BILATon 09-25-1072UR RENAL BILATMRN: [id number] Patient Name: JUHI COPE STUDY: US RENAL BILAT; 04/14/2021 1:14 pm INDICATION: Recurrent UTI. COMPARISON: None. ACCESSION NUMBER(S): [id number] ORDERING CLINICIAN: TERI CHAU TECHNIQUE: Multiple images [...] Unremarkable renal ultrasound. Electronically signed by: GENEVIEVE CAR STUPIN, MDWellSpan Health Office Visit (Urology)on 61-35-4716Jacmuu-up visitDiagnoses/Problems Assessed Recurrent UTI (599.0) (N39.0) Orders Recurrent UTI Start: Nitrofurantoin Monohyd Macro 100 MG Oral Capsule; TAKE 1 CAPSULE Other Please take one capsule after sexual intercourse to prevent UTI Rx By: Teri Chau; Dispense: 30 Days ; #:30 Capsule; Refill: 11;For: Recurrent UTI; ROSY = N; [facility] Inbox Ultrasound Kidney Bilateral; Status:Hold For - Scheduling; Requested for:47Afp9559; Perform:[facility] Services [facility]; Due:65Bdt6973; Last Updated By:Isela Terrazas; 04/01/2021 9:16:17 AM;Ordered; [...] UTI; ROSY = N; [place] [address] Provider Impressions 26 year old female with history of endometriosis presents today via telehealth as a new patient forevaluation of recurrent UTIs. She reports getting UTIs at least once per month, noting occasional nocturia. Symptoms include burning, frequency, and back pain. She states that some UTIs are related to sexual intercourse but most are not. Patient reports she saw Dr. Booth at [facility] in [place], noting she was only treated with medications and urethral dilation for a supposed stricture.Denies gross hematuria. Patient is a non-smoker. Urine culture from [facility] on 03/04/21 was positive for E. coli, [...] NPV - recurrent UTI History of Present Jodndfd29 year old female with history of endometriosis presents today via telehealth as a new patient for evaluation of recurrent UTIs. She reports getting UTIs at least once per month, noting occasional nocturia. Symptoms include burning, frequency, and back pain. She states that some UTIs are related to sexual intercourse but most are not. Patient reports she saw Dr. Booth at [facility] in [place], noting she was only treated with medications [...] content not included)...NormalUH TouchworksNM GASTRIC EMPTYING SOLIDon 86-31-8270GH GASTRIC EMPTYING SOLID* * *Final Report* * * DATE OF EXAM: Nov 05 2020 12:26PM [facility] 0017 - NM GASTRIC EMPTYING [...] 4 HOURS IS CONSISTENT WITH MILD GASTROPARESIS. Hose Mender: PSCB Transcribe Date/Time: Nov 05 2020 1:09P Dictated by : SIDDHARTH PEREA MD This examination was interpreted and the report reviewed and electronically signed by: SIDDHARTH PEREA MD on Nov 05 2020 1:24PM EST [id number] Health SystemANES POSTPROC EVALon 52-98-4712RKRU POSTPROC EVALHNO ID: [id number] Author: Austin Story Service: ? Author Type: Anesthesiologist Type: Anesthesia Postprocedure Evaluation Filed: 10/25/2020 2:52 PM Note Text: POST ANESTHESIA EVALUATION NOTE : 1995 Procedure Summary Date: 10/25/20 Room / Location: ENDO 01 AV ENDO Anesthesia Start: 1324 Anesthesia Stop: [...] October 25, 2020 TIME: 2:52 PM CSN: [id number] HospitalANES PRE-OPon 66-67-5285DPKS PRE-OPHNO ID: [id number] Author: Austin Story Service: ? Author Type: [...] October 25, 2020 TIME: 1:08 PM CSN: [id number]. Vincent's Hospital PATHOLOGYon 10-25-2020 SURGICAL PATHOLOGYSpecimen originated from [facility] Specimen #: [id number] Submitting Physician: MALCOLM CRUZ MD FINAL DIAGNOSIS 1. Small bowel, biopsy (A) - Small bowel mucosa with no pathologic diagnostic abnormality; negative for celiac disease, granulomas and dysplasia. 2. Stomach, biopsy (B) - Gastric oxyntic-type mucosa with no pathologic diagnostic abnormality; see comment. /[facility] 10/26/2020 COMMENT 2. No microorganisms morphologically compatible [...] one cassette. Gross examination performed at [facility], [address] [place] [address] 10/25/2020 7:59:40 PM Date of Report: 10/26/2020 Date of Procedure: 10/25/2020 Date of Receipt: 10/25/2020 Submitted by: MALCOLM CRUZ MD Location: AVEN Diagnostic interpretation performed at [facility], [address] [place] [address]. [place] Number: [id number] Clinic Reference LabComment on above:Performed By: #### S #### See report for performing lab information.SURGICAL PATHOLOGYSpecimen originated from [facility] Specimen #: [id number] Submitting Physician: MALCOLM CRUZ MD FINAL DIAGNOSIS 1. Small bowel, biopsy (A) - Small bowel mucosa with no pathologic diagnostic abnormality; negative for celiac disease, granulomas and dysplasia. 2. Stomach, biopsy (B) - Gastric oxyntic-type mucosa with no pathologic diagnostic abnormality; see comment. /[facility] 10/26/2020 COMMENT 2. No microorganisms morphologically compatible [...] one cassette. Gross examination performed at [facility], [address] [place] [address] EJL 10/25/2020 7:59:40 PM Date of Report: 10/26/2020 Date of Procedure: 10/25/2020 Date of Receipt: 10/25/2020 Submitted by: MALCOLM CRUZ MD Location: AVEN Diagnostic interpretation performed at [facility], [address] [place] [address]. [place] Number: [id number] Broeck Hospital/ GROUP TESTon 88-08-1868PBC [facility] Care FacilityComment on above: Performed By: #### VERAB #### [facility] [address] [place], [place] [address]VI TYPEPositiveWillis-Knighton Pierremont Health CenterComment on above: Performed By: #### VERAB #### [facility] [address] [place], [place] [address]Esvxu Surgical Pathology Departmenton 09-40-8784Mpqsm Surgical Pathology DepartmentName JUHI COPE Pathologist: ASHLEY HURTADO MD Date of Procedure: 09/01/2020 Date Received: 09/01/2020 Date Reported 09/03/2020 Submitting Physician: CHARLENE RODRIGUEZ D.O. Location: [facility] External # FINAL DIAGNOSIS A. [...] ENDOMETRIOSIS. Electronically Signed Out By ASHLEY HURTADO MD/AWDb By the signature on this report, the [...] D. Right pelvic sidewall peritoneum are 2 fuiu-uhu-ayd, irregular fragments of tissue measuring 1.3 x [...] in toto in one cassette. SB amisha/09/02/2020 [facility] Department of Pathology [address] [place], [place] [address]KzcxglQOFormerly Southeastern Regional Medical CenterComment on above:Performed By: #### [facility] #### [facility] Surgical Pathology Department [address] [facility] [address]Noqlocd and Physical - Surgery > 30 dayson 89-84-4395Uytonyy and Physical - Surgery > 30 daysHistory [...] O+, COVID-19: negative OB Hx: None. 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 Hx: As above. PMHx: endometriosis Surg Hx: diagnostic laparoscopy, appendectomy (2016) Meds: Meloxicam, [place]-Linyah, Norethindrone acetate Social Hx: No tobacco, no [...] the note. I personally evaluated the patient [id number] Attending Provider Inpatient Certification StatementObservation patient/other outpatient visits Electronic Signatures: Charlene Rodriguez () (Signed 01-Sep-2020 10:04) Authored: Note Completion Co-Signer: History of Present Illness, Home Medication Review, Impression/Procedure, ERAS, Physical Exam, Consent, Note Completion Chelsie Leal ( (Resident)) (Signed 31-Aug-2020 15:44) Authored: History of Present Illness, Home Medication Review, Impression/Procedure, ERAS, Physical Exam, Consent, Note Completion Last Updated: 01-Sep-2020 10:04 by Charlene Rodriguez ()[facility] Health CenterHomegoing Instructionson 95-78-6006Modlxwiyw InstructionsAdditional Instructions: Handouts Given: Topic 1Anesthesia Homegoing Instructions Topic 2Surgical Site Infection Handout Topic 3New Medication Education Topic 4Suggamedex handout Electronic Signatures: Aminata Gomez (DIALLO) (Signed 01-Sep-2020 16:07) Authored: Additional Instructions Last Updated: 01-Sep-2020 16:07 by Aminata Gomez (DIALLO)[facility] Health CenterPatient Profile - Preop v2on 08-12-8495Pwcpwhc Profile - Preop d2Lizbuet: Initial Info: How to be Addressedalexis Spoken Language PreferredEnglish Are you currently using the Personal Electronic Health Record or C[employer]era Stated Reason for Admissionseeing if my endometriosis is back Primary Contact Name and Numberlogan [phone] Patient Belongingsclothing locker glasses with bf Medications Brought to Hospitalno General Health: Weight in kg55.6 kilogram(s) Weight in wye767.5 pound(s) Weight Methodactual (measured) Scale Typestanding Height [...] Arrangementshouse Lives Withparent(s) Resource/Environmental Concernsnone Anticipated Transition [place] Services Anticipated at Transitionnone Substance: Current or [...] Learning Preferencesverbal instruction Cultural Considerationsnone Developmental Considerationsnone Scientology Considerationsnone Other learner availableno Falls RiskPatient location auto qualifies him/her for HIGH RISK. Are there any cultural, spiritual, rastafari practices/values/needs that are important for us to [...] Physical - Surgery > 30 days 01-Sep-2020 03:42[facility] Health CenterPreop Checkliston 27-09-5700Bqgor Checklist Preop Checklist: Preop Checklist: Arrival Diyz21-Plu-2524 Arrival Time12:30 Procedure Typelaparoscopic endometriosis excision NPO Oqwkzq64-Uvd-7967 00:00 ID Band Onyes Allergy Bandno known [...] Last Updated: 01-Sep-2020 12:35 by Sierra Kraft (RN)[facility] Health CenterANTIBODY IDENT.on 36-60-9650KGGBWDGO IDENT.SEE BELOWNormFormerly [facility] Regional Medical CenterComment on above:Result Comment: NO CLINICALLY SIGNIFICANT ANTIBODIES IDENTIFIED.Performed By: #### ABID #### [facility] [address] [place], [place] [address]IPVyb 37-35-5450Rkebpbqsjjs distribution width (RBC) [Ratio] 12.1 %Dcxttu06.5 - 14.5[facility] Medical CenterComment on above:Performed By: #### CBC #### [facility] [address] [place], [place] [id number] (Bld) [Volume fraction]39.6 %Mioeqp01.0 - 46.0[facility] Medical CenterComment on above:Performed By: #### CBC #### [facility] [address] [place], [place] [id number] (Bld) [Mass/Vol]12.6 g/xXTeuefh16.0 - 16.0[facility] Medical CenterComment on above:Performed By: #### CBC #### [address] [id number] (RBC) [Mass/Vol]31.8 g/dLLow32.0 - 36.0[facility] Medical CenterComment on above:Performed By: #### CBC #### [address] [id number] (RBC) [Entitic vol]90 vFAtkflp03 - 100[facility] Medical CenterComment on above:Performed By: #### CBC #### [address] [id number] (Bld) [#/Vol]333 10*3/wCVphszl256 - 450[facility] Medical CenterComment on above:Performed By: #### CBC #### [address] [id number] x10E12/LNormal4.00 - 5.20[facility] Comment on above:Performed By: #### CBC #### [address] [id number] (Bld) [#/Vol]5.6 10*3/uLNormal4.4 - 11.3[facility] CenterComment on above:Performed By: #### CBC #### [address] [id number] 2019, SCREEN ASYMPTOMATICon 41-36-1490UNRV-CoV-2 (COVID-19) RNA TENA+probe Ql (Unsp spec)Not detectedNormalNot DetectedCare One at Raritan Bay Medical CenterComment on above:Result Comment: This assay [...] patient management decisions. Fact sheet for providers: https://www.fda.gov/media/030297/download Fact sheet for patients: https://www.fda.gov/media/882427/download This test has received FDA Emergency Use Authorization (EUA) and has been verified by [facility] ([facility]). This test is only authorized for the duration of time that circumstances exist to justify the authorization of the emergency use of in vitro diagnostic tests for the detection of SARS-CoV-2 virus and/or diagnosis of COVID-19 infection under section 564(b)(1) of the Act, 21 U.S.C. 360bbb-3(b)(1), unless the authorization is terminated or revoked sooner. [facility] is certified under CLIA-88 as qualified to perform high complexity testing. Testing is performed in the [facility] laboratories located at [address] [place] [address].Performed By: #### COVSC #### [place], [place] [address]Lab Specimen SourceNasal, NasopharyngealNoProwers Medical CenterComment on above:Performed By: #### COVSC #### [place], [place] [address]TYPE + SCREENon [id number] ST. ANTHONY'S HOSPITALONoCarteret Health CareComment on above:Performed By: #### T+S #### [facility] [address] [place], [place] [address]NG TYPEPositiveWillis-Knighton Pierremont Health CenterComment on above: Performed By: #### T+S #### [facility] [address] [place], [place] [address]AIK TYPECanceledGlacial Ridge HospitalComment on above:Order Comment: TEST TYPE + SCREEN WAS CANCELLED, 08/30/2020 13:37 JOP. Performed By: #### T+S #### [facility] [address] [place], [place] [address]KP TYPECanceledNormEstes Park Medical CenterComment on above:Order Comment: TEST TYPE + SCREEN WAS CANCELLED, 08/30/2020 13:37 JOP. Performed By: #### T+S #### [facility] [place] [address] [place], [place] [address]IIVPkn [id number]:Juhi Cope MRN: Height:5' 2 (1.575 m) Weight:120 [...] for the following basenames: K,HCT Progress Notes ([facility] REJ AV4): Jaquelin Wesley Ma [...] toast without seeds (not multigrain); pretzels; waffles, Kinyarwanda toast and pancakes; white rice, noodles, pasta, macaroni, peeled cooked potatoes; Special K, Rice Krispies or [place] Flakes cereals; ripe bananas; melons (except watermelon [...] carbonated beverages such as chi aislinn or lemon-big sandy soda; Gatorade? or other sports drinks (not [...] make sure you have a responsible adult school bus driver/custodian to take you home after procedure. Due to having sedation, you may not drive the rest of the day. ? If you need to reschedule, please call [phone] ?Date/Provider Dr Cruz Procedure:colonoscpy Facility:[employer] Prep ordered( if aware):miralax Knowledge of prep instructions:posted to [employer] Diabetic:no Blood Thinners:no Pacemaker with defibrillator:no left message for patient to return call. Nurse triage please give below message. PLEASE READ PATIENT INSTRUCTIONS BELOW. THANK YOU.[facility] on [id number] ID: [id number] Author: Leon Perkins (Rt) Fito Blanchard Service: Radiology Author Type: Cardiac Rehabilitation Specialist Type: Progress Notes Filed: 07/29/2020 11:06 AM [...] Daya July 29, 2020 11:01 [facility] 2V SUPINE W UPR/DECUB/CTLon [id number] ABD 2V SUPINE W UPR/DECUB/CTL* * *Final [...] structures are normal. No other significant abnormality. Hose Mender: DAVID Transcribe Date/Time: Jul 29 2020 11:19A Dictated by : LALI ORNELAS MD This examination was interpreted and the report reviewed and electronically signed by: LALI ORNELAS MD on Jul 29 2020 11:19AM EST [id number]_[facility] Vital Signs Date TimeVital SignValuePerforming PykdzxfucRmcdpiap31-25-6034 15:04-0500Body mass index (BMI) [Ratio]30.36 kg/j1Zbjeq Kiesha DO Work Phone: [phone] [place], [place] [address]Hzznwgojdv92-23-6045 15:04-0500Body uhnovs31.3 kg Nathan Kiesha DO Work Phone: [phone] [address]-05-2025 15:04-0500Diastolic blood wnjenhgl11 mm[Hg]Nathan Kiesha DO Work Phone: 1(324)904-[address] [place], [place] [address]Xvjmkopheq49-34-6361 15:04-0500Systolic blood odasiosk874 mm[Hg]Nathan Kiesha DO Work Phone: 1(724)[address] [place], [place] 1142210-22-2025 16:04-0400Body mass index (BMI) [Ratio]29.78 kg/m2Ruhcq Kiesha DO Work Phone: 1(328)628-[address] [place], [place] [address]Gjkkizehug08-97-2734 16:04-0400Body dcymvh72.85 kgCorey Kiesha DO Work Phone: 1(382)[facility] [place], [place] [address]Ljaezfgvko19-30-1551 16:04-0400Diastolic blood ydduanob96 mm[Hg]Nathan Kiesha DO Work Phone: 1(400)[facility] [place], [place] [address]Kpuhksufbp34-92-0490 16:04-0400Systolic blood mm[Hg]Nathan Kiesha DO Work Phone: [phone] [address]-16-2025 10:34-0400Body mass index (BMI) [Ratio]29.26 kg/v0JqitcgneMadhuri Monroy MD Work Phone: [facility]10-16-2025 10:34-0400Body vzxeyu23.58 kgMadhuri Monroy MD Work Phone: 1(172)339-[address] [place], [place] [address]3210-16-2025 10:34-0400Diastolic blood ygmwdsqr96 mm[Hg]Madhuri Monroy MD Work Phone: 1(419)[address] [place], [place] 0635310-16-2025 10:34-0400Systolic blood mm[Hg]Madhuri Monroy MD Work Phone: 1(419)[address] [place], [place] 0635310-10-2025 14:48-0400Body mexgtk318.5 cmMine Denise MD Work Phone: 1(419)[address] [place], [place] 0635310-10-2025 14:48-0400Body mass index (BMI) [Ratio]29.04 kg/v4YxgmdpMine Denise MD Work Phone: 1(419)[address] [place], [place] 0635310-10-2025 14:48-0400Body gisqfe13.03 kgMine Denise MD Work Phone: 1(419)[address] [place], [place] 0635310-10-2025 14:48-0400Diastolic blood sdfluiap86 mm[Hg]Mine Denise MD Work Phone: 1(419)[address] [place], [place] 0635310-10-2025 14:48-0400Heart rate 104 /minMine Denise MD Work Phone: 1(419)[address] [place], [place] 0635310-10-2025 14:48-0400Systolic blood ubnqdogk608 mm[Hg]Mine Denise MD Work Phone: 1(995)[address] [place], [place] 0635310-09-2025 15:54-0400Body mass index (BMI) [Ratio]29.41 kg/v7VcpkwctuSteph Keane SALES DEVELOPMENT EXECUTIVE Work Phone: [phone] [place], [place] [address]Skjonhvqvi29-88-5934 15:54-0400Body .94 kgSteph Keane SALES DEVELOPMENT EXECUTIVE Work Phone: [phone] HospitalOcsskvdxxu78-15-0875 15:54-0400Diastolic blood jxrlrqto64 mm[Hg]Steph Keane SALES DEVELOPMENT EXECUTIVE Work Phone: 1(939)661-[facility] HospitalIiazztoirc44-10-8858 15:54-0400Systolic blood vfdnjawm489 mm[Hg]Steph Keane SALES DEVELOPMENT EXECUTIVE Work Phone: [facility] HospitalQdiwvnrxzn01-72-8137 15:37-0400Body mass index (BMI) [Ratio]29.23 kg/a1IqulhkceSteph Keane SALES DEVELOPMENT EXECUTIVE Work Phone: [facility] HospitalLnsmycsddm82-14-7242 15:37-0400Body eeklyd01.48 kgSteph Rickettserly SALES DEVELOPMENT EXECUTIVE Work Phone: [facility] HospitalEyjznkhmbm33-55-5370 15:37-0400Diastolic blood voitsdih22 mm[Hg]Steph Keane SALES DEVELOPMENT EXECUTIVE Work Phone: [facility] HospitalRwtcknsfaa04-69-1315 15:37-0400Systolic blood wouilamm645 mm[Hg]Steph Rickettserly SALES DEVELOPMENT EXECUTIVE Work Phone: [facility] HospitalGhimnuphhh29-95-6652 15:55-0400Body mass index (BMI) [Ratio]29.45 kg/g5HccjztTeena Sarmiento RN Work Phone: 1(003)712-[address] [place], [place] 6123209-29-2025 15:55-0400Body ntpxan58.03 kgTeena Sarmiento RN Work Phone: 1(931)795-[address] [place], [place] 1476009-17-2025 14:32-0400Body mass index (BMI) [Ratio]27.82 kg/y3Okvuc Kiesha DO Work Phone: [facility] HospitalDjcywonqng53-43-6659 14:32-0400Body kg Nathan Kiesha DO Work Phone: [facility] HospitalOlnfjukqtq69-88-6573 14:32-0400Diastolic blood oqreoocb37 mm[Hg]Nathan Kiesha DO Work Phone: [place] [address]Mcxtipyxyp00-01-4535 14:32-0400Systolic blood rszbjsxu399 mm[Hg]Nathan Kiesha DO Work Phone: [facility] HospitalVktixyxklz40-62-9010 15:36-0400Body ymiycb927.5 cmGeorge Kageovanian DO Work Phone: NOSt. Louis VA Medical CenterEpexzzhehc36-35-2420 15:36-0400Body mass index (BMI) [Ratio]27.62 kg/i3Kdvbsfsherita Beltran DO Work Phone: ULSt. Louis VA Medical CenterLmuaiobqqn38-59-5621 15:36-0400Body temperature 97.11 [degF]Eliceo Beltran DO Work Phone: NOSt. Louis [facility] Medical CenterHrlfhqmapa15-90-2516 15:36-0400Body dxqcyb44.49 kgGeorsherita Beltran DO Work Phone: AZSt. Louis VA Medical CenterHrbgczmtkj43-23-6852 15:36-0400Diastolic blood ohqeytri47 mm[Hg]Eliceo Beltran DO Work Phone: ZDSt. Louis VA Medical CenterCfqdnouful63-32-3223 15:36-0400Heart rate97 /min Eliceo Beltran DO Work Phone: [facility] HospitalHhcvynsnzz17-88-7583 15:36-2440HkL5% (BldA) [Mass fraction]98 %Eliceo Beltran DO Work Phone: LTSt. Louis VA Medical CenterObtxouxwbm54-76-0530 15:36-0400Systolic blood dqoeqzan294 mm[Hg]Eliceo Beltran DO Work Phone: [facility] HospitalHiojdpjlpg57-69-5186 15:42-0400Body mass index (BMI) [Ratio]26.48 kg/k1Ueenz Fazio DO Work Phone: [facility] HospitalQoamxwtetz91-27-4193 15:42-0400Body akynhu14.68 kgCorepearl Cabrerao DO Work Phone: [facility] HospitalMafyttttgk04-71-3961 15:42-0400Diastolic blood grqpevgo09 mm[Hg]Nathan Cabrerao DO Work Phone: [facility] HospitalTnbqgatboi70-64-7666 15:42-0400Systolic blood lhnefszt670 mm[Hg]Nathanpearl Cabrerao DO Work Phone: [facility] HospitalSczuzsidyn29-63-0753 14:33-0400Body mass index (BMI) [Ratio]26.73 kg/u4Nxukz Kiesha DO Work Phone: [facility] HospitalYviuvhpffh36-58-6586 14:33-0400Body koxyxv31.28 kgCorey Kiesha DO Work Phone: [facility] HospitalVtampahcrd22-46-6571 14:33-0400Diastolic blood ajfzxytm56 mm[Hg]Nathan Kiesha DO Work Phone: 1(553)324-[address] [place], [place] [address]Brgkvbhcgh28-01-1432 14:33-0400Systolic blood crgabter123 mm[Hg]Nathan Kiesha DO Work Phone: 1(640)607-[address] [place], [place] [address]Fglkluhzbd91-25-5780 14:45-0400Body mass index (BMI) [Ratio]25.24 kg/m1Puizi Kiesha DO Work Phone: 1(553)558-[address] [place], [place] [address]Gzumzmmxok48-19-1898 14:45-0400Body .6 kg Nathan Kiesha DO Work Phone: 1(241)909-[address] [place], [place] [address]Iyrqsvtqkp12-79-2986 14:45-0400Diastolic blood cdeuttfm10 mm[Hg]Nathan Kiesha DO Work Phone: 1(182)624-[address] [place], [place] [address]Xxkmiqxagh81-37-6230 14:45-0400Systolic blood mm[Hg]Nathan Kiesha DO Work Phone: 1(052)678-[address] [place], [place] [address]Gbnaaurgaw31-63-4848 10:29-0400Body mass index (BMI) [Ratio]25.68 kg/m2[facility]06-06-2025 10:29-0400Body ycnsuo76.69 kgSaint [facility] of [facility]02-24-2025 15:08-0500Body mass index (BMI) [Ratio]25.99 kg/n4Zhkie Kiesha DO Work Phone: 1(411)294-[address] [place], [place] [address]Sskocbqoiu23-11-3656 15:08-0500Body .47 kgCorey Kiesha DO Work Phone: 1(706)302-[address] [place], [place] [address]Qmtunpulsz10-03-5203 15:08-0500Diastolic blood mm[Hg]Nathan Kiesha DO Work Phone: 1(415)602-[address] [place], [place] [address]Smcraxbnrq35-74-4884 15:08-0500Systolic blood vbcudnsi763 mm[Hg]Nathan Kiesha DO Work Phone: 1(235)022-[address] [place], [place] [address]Zcwfqwelrd74-74-9163 15:53-0500Body oaznjs280.5 cmGemartha Beltran DO Work Phone: noSt. Louis VA Medical CenterWgailyxxtb57-44-7976 15:53-0500Body mass index (BMI) [Ratio]25.61 kg/p4Rfkpglmartha Beltran DO Work Phone: noSt. Louis VA Medical CenterUktgwtvpar17-46-3688 15:53-0500Body temperature 97.11 [degF]Eliceo Beltran DO Work Phone: noSt. Louis VA Medical CenterNovminpvql61-44-0991 15:53-0500Body .5 kg Eliceo Beltran DO Work Phone: noSt. Louis VA Medical CenterAzpwglbtfb46-75-2834 15:53-0500Diastolic blood lnynigao40 mm[Hg]Eliceo Beltran DO Work Phone: noSt. Louis VA Medical CenterCzxcjtjiaa99-44-0791 15:53-0500Heart rate51 /min Eliceo Beltran DO Work Phone: noSt. Louis VA Medical CenterZbfevdikdg28-48-1644 15:53-2424WsO7% (BldA) [Mass fraction]98 %Eliceo Beltran DO Work Phone: noSt. Louis VA Medical CenterGlamxghizt17-93-7420 15:53-0500Systolic blood robaitih649 mm[Hg]Eliceo Beltran DO Work Phone: noSt. Louis VA Medical CenterSdwzuhuhdx01-43-6405 11:15-0400Body mass index (BMI) [Ratio]25.97 kg/w3Xxavh Fazio DO Work Phone: [facility] HospitalEhwluukoql88-60-1986 11:15-0400Body ighmms31.41 kgNathan Pop DO Work Phone: NOSt. Louis VA Medical CenterOymjvifxpp31-74-5144 11:15-0400Diastolic blood onrqsxme74 mm[Hg]Nathan Pop DO Work Phone: [facility] HospitalItcamokckn62-10-9756 11:15-0400Systolic blood ljdrudsy722 mm[Hg]Nathan Pop DO Work Phone: noSt. Louis [facility] Medical CenterSbqenftkaa56-33-5949 10:02-0400Body mass index (BMI) [Ratio]25.39 kg/w7Qpzan Kiesha DO Work Phone: 1(104)495-[address] [place], [place] [address]Rmicivtfpg91-52-8659 10:02-0400Body nnbmvu02.96 kgCorey Kiesha DO Work Phone: 1(024)[facility] [place], [place] [address]Xrdlyyjhbz44-34-3670 10:02-0400Diastolic blood hecnczmd17 mm[Hg]Nathan Kiesha DO Work Phone: 1(276)964-[address] [place], [place] [address]Scyvbegobw04-83-9338 10:02-0400Systolic blood eqefuorp636 mm[Hg]Nathan Kiesha DO Work Phone: 1(948)[facility] [place], [place] [address]Rvdaljxvsr78-52-5125 10:55-0500Body mass index (BMI) [Ratio]28.17 kg/s8Dafju Kiesha DO Work Phone: 1(089)[facility] [place], [place] [address]Zloilbjydg72-38-5740 10:55-0500Body htejup43.85 kgCorey Kiesha DO Work Phone: 1(312)[facility] [place], [place] [address]Favvjrepzy84-76-3123 10:55-0500Diastolic blood xyrshpnl04 mm[Hg]Nathan Kiesha DO Work Phone: 1(094)[facility] [place], [place] [address]Vxgybswswm78-97-7953 10:55-0500Systolic blood mm[Hg]Nathan Kiesha DO Work Phone: 1(026)[facility] [place], [place] [address]Wmvpdqnoud94-33-8491 17:31-0400Body temperature 98.96 [degF][facility]10-18-2023 17:31-0400 Diastolic blood pdemcbxc77 mm[Hg][facility]10-18-2023 17:31-7567WUB3 99 %[facility]10-18-2023 17:31-0400Heart wwhr765 /minV[facility]10-18-2023 17:31-0400 Respiratory rate16 /min[facility]10-18-2023 17:31-0400 Systolic blood defqjgjx546 mm[Hg][facility]06-06-2023 10:55-0400Body asjczo332.5 cmErin Reaper HEALTH TECH.[employer]LTRY KILLER Work Phone: [phone] Mgmvxr78-57-8178 10:55-0400Body .86 kgErin Reaper HEALTH TECH.POULTRY KILLER Work Phone: [phone] Pqdkog30-12-1564 10:55-0400Diastolic blood zpqojqwh81 mm[Hg]Jihan Reaper HEALTH TECH.POULTRY KILLER Work Phone: [phone] Gpghts84-65-4557 10:55-0400Systolic blood nkqmghei849 mm[Hg]Jihan Reaper HEALTH TECH.POULTRY KILLER Work Phone: [place] Sxomew07-66-5481 19:18-0500Diastolic blood dkioasrq28 mm[Hg][facility]03-08-2023 19:18-0500Heart rate98 /minL[facility]03-08-2023 19:18-0500Nursing Progress Note ReasonOther: this RN discharged pt. pt verbalizes understanding and denies questiosn prior to discharge.[facility]03-08-2023 19:18-0500Respiratory rate16 /minL[facility]03-08-2023 19:18-8272PlV1% (BldA) [Mass fraction]100 %[facility]03-08-2023 19:18-0500 Systolic blood hmmdbapl988 mm[Hg][facility] 01-31-2023 18:00-0500Diastolic blood yklqlgap97 mm[Hg][facility]03-08-2023 18:00-0500Heart lymp174 /minL[facility]03-08-2023 18:00-0500Mean blood wxqotqyt317 mm[Hg][facility]03-08-2023 18:00-4158WoY8% (BldA) [Mass fraction]99 %[facility]03-08-2023 18:00-0500 Systolic blood yficweyo987 mm[Hg][facility] 01-31-2023 17:00-0500Diastolic blood qufroush93 mm[Hg][facility]03-08-2023 17:00-0500Mean blood myxmiphp605 mm[Hg][facility]03-08-2023 17:00-0500Systolic blood pressure 117 mm[Hg][facility]03-08-2023 16:38-0500Heart porl554 /minL[facility]03-08-2023 16:38-0500Mean blood jmftosio984 mm[Hg][facility]03-08-2023 16:38-0500Respiratory rate18 /[facility] 01-31-2023 13:49-0500Body omknehaiyja16.88 [degF][facility]03-08-2023 13:49-0500Heart wpzt785 /minL[facility]02-04-2023 14:55-0500Body yxljohbcslo53.88 [degF][facility]02-04-2023 14:55-0500Diastolic blood sifdzakq74 mm[Hg][facility]02-04-2023 14:55-0500Heart rate84 /minL[facility]02-04-2023 14:55-0500Mean blood watzdptc032 mm[Hg][facility]02-04-2023 14:55-0500Respiratory rate20 /minL[facility]02-04-2023 14:55-6322HdU9% (BldA) [Mass fraction]98 %[facility]02-04-2023 14:55-0500Systolic blood pressure 137 mm[Hg][facility]02-04-2023 14:35-0500Body pmejiouxhoy26.88 [degF][facility]02-04-2023 14:35-0500Diastolic blood bvpzdyfy91 mm[Hg][facility]02-04-2023 14:35-0500Heart rate82 /minL[facility]02-04-2023 14:35-0500Mean blood aijwxwzi00 mm[Hg][facility]02-04-2023 14:35-0500Respiratory rate16 /[facility]02-04-2023 14:35-9424IsF5% (BldA) [Mass fraction]97 %[facility]02-04-2023 14:35-0500Systolic blood ygzsbqzn720 mm[Hg][facility]02-04-2023 13:35-0500Body lmnkgnwknvo53.88 [degF][facility]02-04-2023 13:35-0500Diastolic blood mm[Hg][facility]02-04-2023 13:35-0500Heart rate80 /min[facility]02-04-2023 13:35-0500Mean blood zygxzups39 mm[Hg] [facility]02-04-2023 13:35-0500Respiratory rate 17 /minL[facility]02-04-2023 13:35-6233WqX8% (BldA) [Mass fraction]96 %[facility]02-04-2023 13:35-0500Systolic blood uejmpouu789 mm[Hg][facility]02-04-2023 13:00-0500Respiratory rate12 /minL[facility]02-04-2023 12:55-0500Respiratory rate9 /minL[facility]02-04-2023 12:50-0500Respiratory rate10 /min[facility]02-04-2023 08:15-0500Body csblcbnfviw28.24 [degF] [facility]02-04-2023 08:15-0500Heart mvue233 /minL[facility]01-07-2023 13:41-0500Body .2 [degF]Kathe Ryder DO Work Phone: 1(295)246-[address] [place], [place] [address]Xukybz69-09-4805 13:41-0500Diastolic blood eaptzwmq27 mm[Hg]Kathe Ryder DO Work Phone: [facility] HospitalNgwjsu50-90-3465 13:41-0500Heart kbtv705 /min Kathe Ryder DO Work Phone: 1(922)0024640[facility] HospitalLgdvsl66-36-9345 13:41-0500Respiratory rate18 /minKathe Ryder DO Work Phone: [facility] HospitalVmjldj82-92-9285 13:41-9188SfI3% (BldA) [Mass fraction]99 %Kathe Ryder DO Work Phone: [facility] HospitalJtqiqn48-55-7605 13:41-0500Systolic blood qtquktbf459 mm[Hg]Kathe Ryder DO Work Phone: [facility] HospitalKeubjp86-21-5488 00:45-0500Body icszgm451.5 cm Kathe Ryder DO Work Phone: [facility] HospitalCwvbkd24-82-5037 00:45-0500Body mass index (BMI) [Ratio]25.61 kg/r5RjxuyioytKathe Ryder DO Work Phone: [facility] HospitalCbnkfu80-80-2035 00:45-0500Body gkfgen24.5 kg Kathe Ryder DO Work Phone: [facility] HospitalKcbdnk03-97-8602 22:26-0500Hourly Rounding Fredi KARASIK [address] [place], [place] [address]Comment on above:Result Comment: ensured that all pt belongings are sent with pt. pt has no questions or concerns. report given to EMS. pt stable and no s/s of distress. pt off unit to wfrjuvga99-69-3768 22:00-0500Diastolic blood hbnmqqac15 mm[Hg]Fredi KARASIK [address] [place], [place] 3107101-02-2023 22:00-0500Heart dcza082 /minGregory KARASIK [address] [place], [place] 3107101-02-2023 22:00-0500 Hourly RoundingGregory KARASIK [address] [place], [place] 3107101-02-2023 22:00-0500Mean blood mm[Hg]Fredi KARASIK [address] [place], [place] 3107101-02-2023 22:00-0500 Systolic blood cnjzndfi774 mm[Hg]Fredi KARASIK [address] [place], [place] 3107101-02-2023 21:50-0500Blood Pressure LocationGregory KARASIK [address] [place], [place] 3107101-02-2023 21:50-0500 Diastolic blood mm[Hg]Fredi KARASIK [address] [place], [place] 3107101-02-2023 21:50-0500Heart lfvg443 /minGregory KARASIK [address] [place], [place] 3107101-02-2023 21:50-0500 Hourly RoundingGregory KARASIK [facility]01-02-2023 21:50-0500Mean blood zomyrdxm563 mm[Hg]Fredi SCHUMACHERASIK [address] [place], [place] 3107101-02-2023 21:50-0500 Respiratory rate18 /minFredi SCHUMACHERASIK [address] [place], [place] 3107101-02-2023 21:50-9873AnP0% (BldA) [Mass fraction]98 %Fredi SCHUMACHERASIK [address] [place], [place] 3107101-02-2023 21:50-0500 Systolic blood mnjkvamx382 mm[Hg]Fredi KARASIK [address] [place], [place] 3107101-02-2023 21:37-0500Blood Pressure LocationGregrosa ABREUK [address] [place], [place] 3107101-02-2023 21:37-0500 Diastolic blood mm[Hg]Fredi SCHUMACHERASIK [address] [place], [place] 3107101-02-2023 21:37-0500Heart mvah487 /minFredi ABREUK [address] [place], [place] 3107101-02-2023 21:37-0500Mean blood atazucyx746 mm[Hg]Fredi SCHUMACHERASIK [address] [place], [place] 3107101-02-2023 21:37-3669CpN7% (BldA) [Mass fraction]97 %Fredi SCHUMACHERASIK [address] [place], [place] 3107101-02-2023 21:37-0500 Systolic blood zviluznp478 mm[Hg]Fredi KARASIK [address] [place], [place] 3107101-02-2023 21:30-0500Blood Pressure LocationFredi SCHUMACHERASIK [address] [place], [place] 3107101-02-2023 21:30-0500Body gvnxrlblfyy49.6 [degF]Fredi DORSEY [facility]01-02-2023 19:00-0500Body zormpweslun00.24 [degF]Fredi DORSEY [facility]01-02-2023 17:15-0500Body iewmqsvmemb40.06 [degF]Fredi DORSEY [facility]01-02-2023 14:02-0500Heart rate99 /minFredi DORSEY [facility]08-19-2022 07:00-0400Body .6 [degF]Kaylinn Dokken [address]08-19-2022 07:00-0400 Diastolic blood rzfhduwk09 mm[Hg]Kaylinn Dokken [address]08-19-2022 07:00-0400Heart rate80 /minKaylinn Dokken [address] [place], [place] 6014808-19-2022 07:00-0400Mean blood aghwtgfp59 mm[Hg]Kaylinn Dokken [address] [place], [place] 6014808-19-2022 07:00-0400 Respiratory rate17 /minKaylinn Dokken [address]08-19-2022 07:00-0400 Systolic blood ifdkmyss386 mm[Hg]Kaylinn Dokken [address] [place], [place] 6014808-19-2022 06:07-0400Body cvcvsbgzcyb85.24 [degF]Kaylinn Dokken [address]08-19-2022 06:07-0400 Diastolic blood rymrhnss87 mm[Hg]Kaylinn Dokken [address] [place], [place] [id number] 06:07-0400Heart rate90 /minCharlotteylinn Dokken [address]08-19-2022 06:07-0400 Respiratory rate18 /minCharlotteylinn Dokken [address] [place], [place] [id number] 06:07-4300CxK5% (BldA) [Mass fraction]100 %Kumar Villagomez [address]08-19-2022 06:07-0400 Systolic blood frcyvrzr360 mm[Hg]Beatrisn Yulyen [address] [place], [place] [id number] 05:30-0400 Hourly RoundingCorey KIESHA [address] [place], [place] [address]Comment on above:Result Comment: Pt discharged per physician orders. Pt ambulates off unit with a steady [id number] 05:15-0400Diastolic blood brxuapep17 mm[Hg]Nathan KIESHA [address] [place], [place] [id number] 05:15-0400Heart rgkd142 /minCorey KIESHA [address] [place], [place] [id number] 05:15-0400 Hourly RoundingCorey KIESHA [address] [place], [place] [id number] 05:15-0400Mean blood ypprvdnn67 mm[Hg]Nathan KIESHA [address] [place], [place] [id number] 05:15-0400 Respiratory rate18 /minCorey KIESHA [address] [place], [place] [id number] 05:15-0400 Systolic blood biyjstpg843 mm[Hg]Nathan KIESHA [address] [place], [place] 3107105-24-2022 11:00-0400Body icyyep107.02 cmCameron Edward Other nort [employer] Other 05-24-2022 11:00-0400Body mass index (BMI) [Ratio] 23.03 kg/e9Rlstoxx [employer] Other [facility] [employer] Other 05-24-2022 11:00-0400Body yletdw92.97 kgCamerojunior Loratty Other [facility] [employer] Other 03-17-2022 11:41-0400Body ibdybs238.48 cmMegan Billow DO Work Phone: [phone]-DGDZI[address] Work Phone: [phone] 11:41-0400Body mass index (BMI) [Ratio] 24.51 kg/f8Mxavh Billow DO Work Phone: NK-CZKXD[address] Work Phone: [phone] 11:41-0400Body surface area Derived from formula1.61 x8Ettyw Billow DO Work Phone: AR-JIEYG[address] Work Phone: [phone] 11:41-0400Body kojhrt96.78 kgMegan Billow DO Work Phone: BG-LBCHY[address] Work Phone: [phone] 11:41-0400Diastolic blood gtlezteu55 mm[Hg] Charlene Billow DO Work Phone: AE-FPDGN[address] Work Phone: [phone] 11:41-0400Systolic blood vhajhlsy869 mm[Hg] Charlene Billow DO Work Phone: BJ-YKJSZ[address] Work Phone: [phone] 11:41-88533 1Megan Billow DO Work Phone: XP-OIJLM-[address] Work Phone: Comment on above:GOTRMNVWHrsoCvmgt53-80-5087 14:53-0400Body knawyu858.48 cmMegan Billow DO Work Phone: DV-UDKCB-[address] Work Phone: [phone] 14:53-0400Body mass index (BMI) [Ratio] 21.77 kg/b0Sfixg Billow DO Work Phone: LR-NBDUM-[address] Work Phone: [phone] 14:53-0400Body surface area Derived from formula1.53 h2Evbnn Billow DO Work Phone: OC-NENMZ-[address] Work Phone: [phone] 14:53-0400Body xfeqdo85.98 kgMegan Billow DO Work Phone: HS-ALRKU-[address] Work Phone: [phone] 14:53-0400Diastolic blood hfzyemdz06 mm[Hg] Charlene Billow DO Work Phone: ZU-TKCPT-[address] Work Phone: [phone] 14:53-0400Heart xpno352 /minMegan Billow DO Work Phone: GU-BVKWW-[address] Work Phone: [phone] 14:53-0400Systolic blood mm[Hg] Charlene Billow DO Work Phone: OL-HCOAO-[address] Work Phone: [phone] 14:53-03327 1Megan Billow DO Work Phone: XC-BWQFK-[address] Work Phone: Comment on above:GRAVPARAPainScale Encounters Encounter DateEncounter TypeCare ProviderFacilityStart: 10-06-2025 End: 92-57-4716Cqgzxy outpatient visit 25 minutesColleen E Matthias CLAYTON Work Phone: [phone]-Ueiwm Medicine at [facility] Comment on above:Insulin controlled gestational diabetes mellitus (GDM) in third trimester (Primary Dx); Essential hypertension affecting in third trimesterStart: 10-06-2025 End: 53-58-8353hidgyfmxryCBVFCNU E MATTHIASProMedica Kettering Health Main Campustart: 10-05-2025 End: 13-99-7305Qybmzsknp encounterAnjana Davalos RNMaternal- Medicine at [facility] Hospitaltart: 10-03-2025 End: 25-09-1051Lnsmartdj Result EncounterSteph Keane NP Work Phone: noms External Department UnsolicitedStart: 10-03-2025 End: 34-80-7495Aftitonsw Result EncounterSteph Keane NP Work Phone: noms External Department UnsolicitedStart: 09-30-2025 End: 75-43-3643Mybhbxts flow sheetCorey Kiesha DO Work Phone: noms Patti OBGYNComment on above:Third trimester ([facility]); 31 weeks gestation of ([facility]); Pre-eclampsia in third trimester ([facility])Start: 09-30-2025 End: 82-03-0525hiwimxgbjkAXBGR FAZIONot AvailableStart: 09-30-2025 End: 90-14-7679Wzahsi flowsheetCorey Kiesha DO Work Phone: noMS [place] OBGYNStart: 09-30-2025 End: 52-67-9294Bfcqbj flowsheetCorey Kiesha DO Work Phone: NOMS Patti OBGYNStart: 09-28-2025 End: 90-74-7323Usukap OnlyChivo Springer PA-C Work Phone: [phone]-Qiddi Medicine at [facility] Comment on above:Essential hypertension affecting in third trimester Start: 09-26-2025 End: 35-74-7134Bknuxksvf Result EncounterSteph Keane NP Work Phone: noms External Department UnsolicitedStart: 09-26-2025 End: 10-49-9423Hsabipvig Result EncounterSteph Keane NP Work Phone: noms External Department UnsolicitedStart: 09-21-2025 End: 98-62-1050awwbsldqhgNuxilzk E Lavoy PA-C Work Phone: [phone]-Ddlvp Medicine at [facility] Comment on above:Insulin controlled gestational diabetes mellitus (GDM) in third trimester (Primary Dx); Essential hypertension affecting in third trimesterStart: 09-21-2025 End: 67-33-7548Rwnpucogf encounterVerito EDOUARD Work Phone: [phone]-Rnnot Medicine at [facility] Start: 09-19-2025 End: 25-49-3969Xsphdftab Result EncounterSteph Keane NP Work Phone: noms External Department UnsolicitedStart: 09-19-2025 End: 45-85-2881Mdznoivne Result EncounterSteph Keane NP Work Phone: noms External Department UnsolicitedStart: 09-17-2025 End: 92-96-3431Cmhusl Breanna CAGE Work Phone: [phone]-Iytzv Medicine at [facility] Comment on above:Essential hypertension affecting in third trimester Start: 09-16-2025 End: 88-65-8326tebvoltdxsZIPWH FAZIONot AvailableStart: 09-16-2025 End: 16-40-3059Yivefrra flow sheetCorey Kiesha DO Work Phone: noms Patti OBGYNComment on above:29 weeks gestation of ([facility]); Third trimester ([facility]); Hypertension affecting , antepartum ([facility]); Gestational diabetes mellitus (GDM), antepartum, gestational diabetes method of control unspecified([facility])Start: 09-16-2025 End: 93-89-2508Iamcoc flowsheetCorey Kiesha DO Work Phone: NOMS [place] OBGYNStart: 09-16-2025 End: 09-89-9053Ofkokf flowsheetCorey Kiesha DO Work Phone: NOMS [place] OBGYNStart: 09-16-2025 End: 75-20-7783Mnztednyk Nirmal Harris [facility]art: 09-15-2025 End: 57-08-8616LbsuyeMika Springer PA-C Work Phone: [phone]-Pfdmg Medicine at [facility] Comment on above:Essential hypertension affecting in third trimester Start: 09-10-2025 End: 12-65-8668Wosqtm outpatient visit 25 minutesMadhuri Monroy MD Work Phone: [facility] Medicine [place]Comment on above: 28 weeks gestation of (Primary Dx); Insulin controlled gestational diabetes mellitus (GDM) in second trimester; Essential hypertension affecting in third trimesterStart: 09-10-2025 End: 52-35-5179hbedutevadMXLKLUQA P DOCHEVASelect Medical [facility] Start: 09-04-2025 End: 51-94-6755Dwydsj consultation new/estab patient 60 Annalee Denise MD Work Phone: [phone]-Vdqzr Medicine at [facility] Comment on above:Diet controlled gestational diabetes mellitus (GDM) in second trimester (Primary Dx); Essential hypertension affecting in third trimesterStart: 09-04-2025 End: 22-22-6611mjdeuyjtllBBLNJJNona [facility] Hospitaltart: 09-03-2025 End: 72-59-2068Ietnttur flow sheetSteph Keane SALES DEVELOPMENT EXECUTIVE Work Phone: NOMR Patti OBGYNComment on above:Hypertension affecting , antepartum ([facility]) (Primary Dx); 27 weeks gestation of ([facility]); Second trimester ([facility])Start: 09-03-2025 End: 61-11-2303uwncmdzbfuQGMXUKGH EBERLYNot AvailableStart: 09-03-2025 End: 78-80-8689Rsaxoj flowsheetSteph Keane SALES DEVELOPMENT EXECUTIVE Work Phone: NOMS [place] OBGYNStart: 09-03-2025 End: 52-74-2319Yamrvnosa Result EncounterCorey Kiesha DO Work Phone: noms External Department UnsolicitedStart: 09-03-2025 End: 62-70-2113Dhsvaadfq Result EncounterCorey Kiesha DO Work Phone: noms External Department UnsolicitedStart: 09-01-2025 End: 78-78-7030Becceaqfj encounterCha Harris RNMaternal- Medicine at [facility] Hospitaltart: 08-29-2025 End: 79-83-6702Cmbsoommy Result EncounterSteph Keane NP Work Phone: noms External Department UnsolicitedStart: 08-29-2025 End: 01-36-0707Sltbpkumm Result EncounterSteph Keane NP Work Phone: noms External Department UnsolicitedStart: 08-27-2025 End: 45-41-4266boijznykqxQFHLSMPP EBERLYNot AvailableStart: 08-27-2025 End: 60-85-3956Dbwgobnr flow sheetSteph Keane SALES DEVELOPMENT EXECUTIVE Work Phone: NOMS Patti OBGYNComment on above:26 weeks gestation of ([facility]); Second trimester ([facility]); induced hypertension, antepartum ([facility]-HCC); Gestational diabetes mellitus (GDM) in second trimester, gestational diabetes method of control unspecified ([facility])Start: 08-27-2025 End: 18-55-9314Wssral flowsheetSteph Elsa SALES DEVELOPMENT EXECUTIVE Work Phone: NOFZ Patti OBGYNStart: 08-27-2025 End: 32-80-3531Uloqxq flowsheetSteph Keane SALES DEVELOPMENT EXECUTIVE Work Phone: NOUM Patti OBGYNStart: 08-27-2025 End: 33-76-5997Dyggeybxj Result EncounterSteph Keane SALES DEVELOPMENT EXECUTIVE Work Phone: noms External Department UnsolicitedStart: 08-25-2025 End: 86-39-8740Qqjvnfoid Result EncounterGeneric External Data ProviderNOMS External Department UnsolicitedStart: 08-25-2025 End: 07-78-4236Xubeindqc Result EncounterGeneric External Data ProviderNOMS External Department UnsolicitedStart: 08-24-2025 End: 30-59-8387ttncurkrsoKtxwas M Frey RN Work Phone: [phone]-Cfcyl Medicine at [facility] Comment on above:Gestational diabetes mellitus (GDM) in second trimester, gestational diabetes method of control unspecifiedStart: 08-21-2025 End: 01-04-3206Bhisi abstractingScanning Provider ExternalMaternal- Medicine at [facility] Hospitaltart: 08-18-2025 End: 07-36-7806Otsaq Aura Monroy MD Work Phone: [phone]-Snqlw Medicine at [facility] Start: 08-15-2025 End: 44-07-5660zardgtzfroUVVLMYMS EBERLYFacility:FTMCStart: 08-12-2025 End: 55-47-8356Bbehhlbu flow sheetCorey Kiesha DO Work Phone: noms [place] OBGYNComment on above:24 weeks gestation of ([facility]); Second trimester ([facility]); Elevated glucose tolerance testStart: 08-12-2025 End: 36-44-5403vduvoaxpclCEQYF FAZIONot AvailableStart: 08-12-2025 End: 33-45-6432gavlwacxquEylvd Bryant MANISHAOFacility:FTMCStart: 08-01-2025 End: 63-01-2835emjdjtmjbzL KENNETH BELTRANFacility:FTMCStart: 07-30-2025 End: 47-01-9949Wvrbdkx encounter statusGemartha Hurtado Ruby DO Work Phone: [facility] Work Phone: Start: 07-30-2025 End: 26-48-9993Tsmivucm preventive med est patient 18-39 yrsGeorsherita Hurtado Charlottecarol DO Work Phone: noms [facility] 230Comment on above: Wellness examination (Primary Dx); Hypertension, unspecified type ; Lipid screeningStart: 07-30-2025 End: 04-72-1763fhopooqumkHSTEQC R KAFTANNot AvailableStart: 07-30-2025 End: 84-32-8255Yotjlt flowsheetEliceo Hurtado Ruby DO Work Phone: noms [facility] 230Start: 07-30-2025 End: 59-07-3869Eulwlp flowsreynoldEliceo Hurtado Ruby DO Work Phone: noms [facility] 230Start: 07-15-2025 End: 70-49-3742Bjbqisxw flow sheetCorey Kiesha DO Work Phone: NOJC [place] OBGYNComment on above:20 weeks gestation of ([facility]); Second trimester ([facility]); Diabetes mellitus screeningStart: 07-15-2025 End: 69-56-6598ltlhsrxnknEPRMX FAZIONot AvailableStart: 07-15-2025 End: 18-55-3853Jctcnuxkw Result EncounterCorey Kiesha DO Work Phone: NOBA External Department UnsolicitedStart: 07-15-2025 End: 29-78-0600Qbhynsrvb Result EncounterCorey Kiesha DO Work Phone: NOMS External Department UnsolicitedStart: 06-22-2025 End: 94-27-0037Naevkefu flow sheetCorey Kiesha DO Work Phone: NOLS [place] OBGYNComment on above:Sinusitis, unspecified chronicity, unspecified location (Primary Dx); Second trimester ([facility]); 17 weeks gestation of ([facility]); Screening, , for anatomic survey ([facility])Start: 06-22-2025 End: 76-60-2317mhelciwpkyLWJBX FAZIONot AvailableStart: 06-22-2025 End: 12-90-1072Wztjiz flowsheetCorey Kiesha DO Work Phone: NODU [place] OBGYNStart: 06-22-2025 End: 04-61-0998Lwagmc flowsheetCorey Kiesha DO Work Phone: NOHQ Patti OBGYNStart: 06-22-2025 End: 77-28-2672Tkwyfmdl Result EncounterCorey Kiesha DO Work Phone: NOVE External Department UnsolicitedStart: 05-25-2025 End: 14-26-8662tyhhgbnkjbUDEGV FAZIONot AvailableStart: 05-25-2025 End: 20-94-2392Weydlnzb flow sheetCorey Kiesha DO Work Phone: NOIL BCP OBComment on above:Nonintractable episodic headache, unspecified headache type (Primary Dx); Second trimester ([facility]); 13 weeks gestation of ([facility])Start: 05-25-2025 End: 78-90-5520Oltmup flowsheetCorey Kiesha DO Work Phone: NOMS BCP OBStart: 05-25-2025 End: 46-05-3593Feujgs flowsheetCorey Kiesha DO Work Phone: NOMS BCP OBStart: 05-04-2025 End: 35-59-9137Nmaabltgc Result EncounterCorey Kiesha DO Work Phone: NOMS External Department UnsolicitedStart: 05-04-2025 End: 89-68-7313Sfmbtdkeq Result EncounterCorey Kiesha DO Work Phone: noms External Department UnsolicitedStart: 05-01-2025 End: 51-69-2944Jqxbgnidd Result EncounterCorey Kiesha DO Work Phone: noMS External Department UnsolicitedStart: 05-01-2025 End: 31-24-9953Edknldcnh Result EncounterCorey Kiesha DO Work Phone: noms External Department UnsolicitedStart: 05-01-2025 End: 33-29-4351kdueonezzoGNDFBG Jose Angel AvailableStart: 05-01-2025 End: 57-82-9548Ytxqkl outpatient visit 5 minutesNoms Bcp Ob Kiesha NurseNOMS BCP OBComment on above:GA: 3q7uVbkna: 03-13-2025 End: 35-86-8361ftfxumqcbkSfemr R FAZIOFacility:FTMCStart: 03-13-2025 End: 50-04-6143Kiwauoa encounter procedureCorey R KISEHA [facility] Start: 02-02-2025 End: 35-94-1781Dkgvrpg encounter procedureDenny Rodríguez MD Work Phone: [facility] Main [place] Work Phone: Start: 02-02-2025 End: 64-78-8637ldjivlibbqGprsc Baxter MD Work Phone: [facility] Work Phone: Start: 01-22-2025 End: 36-63-8051wcjtalqfkdWlfnc R FAZIOFacility:FTMCStart: 01-22-2025 End: 18-76-8625Cyomrpn encounter procedureCorey R KIESHA [facility] Start: 01-19-2025 End: 17-54-4129Wptljw outpatient visit 15 minutesCorey Kiesha DO Work Phone: noms BCP OBComment on above:Pain in female genitalia on intercourse; EndometriosisStart: 01-19-2025 End: 39-79-3251pjcvgxiyeaXVWPP FAZIONot AvailableStart: 01-19-2025 End: 04-56-4955Ilrukk flowsheetCorey Kiesha DO Work Phone: NOMS BCP OBStart: 01-19-2025 End: 80-39-3568Qcmiak flowsheetCorey Kiesha DO Work Phone: NOMS BCP OBStart: 12-30-2024 End: 62-71-9587inptfzmcenDZNDZQ R TREYANNot AvailableStart: 12-30-2024 End: 89-39-7980Qaglug outpatient visit 15 minutesGeorge R Charlottecarol DO Work Phone: NOXZ [facility] 230Comment on above:Hypertension, unspecified type (CMS/HCC) (Primary Dx); Paroxysmal tachycardia, unspecified (CMS/HCC); Chronic right shoulder pain; Scapular dyskinesisStart: 08-18-2024 End: 76-17-9106Whfbfl flowsheetCorey Kiesha DO Work Phone: noMS BCP OBStart: 08-18-2024 End: 85-28-9084Hpmsfk flowsheetCorey Kiesha DO Work Phone: noMS BCP OBStart: 08-18-2024 End: 26-04-1493Vcxnqvmar Result EncounterCorey Kiesha DO Work Phone: noms External Department UnsolicitedStart: 08-18-2024 End: 52-38-1229Peopbth encounter procedureCorey Kiesha DO Work Phone: [facility] Work Phone: Start: 08-18-2024 End: 52-67-8918Zgoqeyvg preventive med est patient 18-39 yrsCorey Kiesha DO Work Phone: NOMS BCP OBComment on above:Well woman exam with routine gynecological examStart: 07-22-2024 End: 23-71-6637Jdwqfg flowsheetCorey Kiesha DO Work Phone: NOMS BCP OBStart: 07-22-2024 End: 48-17-8462Efhegd flowsheetCorey Kiesha DO Work Phone: NORY BCP OBStart: 07-22-2024 End: 05-80-5885Zcjxfl outpatient visit 15 minutesCorey Kiesha DO Work Phone: NOMS BCP OBComment on above:Dysmenorrhea, unspecified Start: 53-46-1192Zdpgowjcp encounterMegan Billow DO Work Phone: [facility] Centertart: 93-45-5566Elmqjhegl encounterMegan Billow DO Work Phone: WRichland HospitalComment on above:Surgery CancelledStart: 02-13-2024 End: 06-19-8685Jvpxneutf Result EncounterCorey Kiesha DO Work Phone: NOWP External Department UnsolicitedStart: 02-13-2024 End: 08-43-1442Ulgbfnnha Result EncounterCorey Kiesha DO Work Phone: noms External Department UnsolicitedStart: 01-15-2024 End: 83-36-9592Xibxusnhd Result EncounterCorey Kiesha DO Work Phone: noms External Department UnsolicitedStart: 01-15-2024 End: 03-85-6627Ymjzzlbcm Result EncounterCorey Kiesha DO Work Phone: noms External Department UnsolicitedStart: 01-10-2024 End: 56-95-8311Aelcyb outpatient visit 15 minutesCorey Kiesha DO Work Phone: NOMS BCP OBComment on above:Menorrhagia with regular cycle; Pelvic pain in female; Uses controlStart: 24-83-8330FywvhlVcmws Billow DO Work Phone: [facility] CenterComment on above:Refill Request Start: 68-30-9996mvfydgugeuMinna Billow DO Work Phone: Obstetrics/GynecologyComment on above:painStart: 12-10-2023 End: 74-50-9209ddijknnvftQBXIZ BILLOWFacility:[facility] Hospitaltart: 41-12-7070inogwrhakzHuyat Billow DO Work Phone: REM PIRES MCStart: 59-74-1902Txpxymv encounter procedureMegan Billow DO Work Phone: Obstetrics/GynecologyComment on above:office visit Start: 09-12-2023 End: 44-00-1861Uzcaefbhz department patient Berny Loco [facility] Start: 05-14-2418Echnen pelvic examinationMegan Billow DO Work Phone: Obstetrics/GynecologyComment on above:Pelvic pain in female (Primary Dx)Start: 41-30-0947tktsrpgsvhEnkoh Billow DO Work Phone: Obstetrics/GynecologyComment on above:painful periods Start: 08-24-2023 End: 87-57-6257Qfteyb pelvic examinationErin Vicker HEALTH TECH.[employer] Work Phone: GynecologyComment on above:High-tone pelvic floor dysfunction (Primary Dx); Chronic pelvic pain in femaleStart: 08-24-2023 End: 15-33-3440Qarskgbtsipm consultation with Kelton Downs APRN.[employer] Work Phone: cCF [facility] MAINStart: 08-24-2023 End: 10-43-6334okxtmbggfwJMIZ REAPERFacility:[facility] HospitalStart: 15-36-4454afpnsnyjgjUlmoe Billow DO Work Phone: Obstetrics/GynecologyComment on above:painful period Start: 41-04-1511Bunhspsaj encounterMegan Billow DO Work Phone: GynecologyComment on above:Insurance Authorization (Orilissa)Start: 07-16-2023 End: 72-17-5516eybuqxijwjWOALX BILLOWFacility:[facility] Hospitaltart: 06-12-2023 End: 32-02-1415jyrutxvdbfIVTRM BILLOWFacility:[facility] Hospitaltart: 06-12-2023 End: 33-40-5561Hreuhyrgde hospital visit by physicianandra [facility] Suki (I-Stat/1.5t) RadiologyComment on above:Pelvic and perineal pain [R10.2]Start: 05-17-2023 End: 56-96-5249Xvkexo pelvic examinationMegan Billow DO Work Phone: Obstetrics/GynecologyComment on above:Endometriosis (Primary Dx); Pelvic and perineal painStart: 05-17-2023 End: 27-64-5762Jprwusxbrfco consultation with kikaCharlene Rodriguez DO Work Phone: Dre [facility]LETANEWTON-WELLESLEY HOSPITALtart: 05-17-2023 End: 89-78-1849kprgztfvxhYFBLP ALAN BAXTERFacility:[facility] Start: 59-24-3460Tniftoxex encounterMekevin Billfanny DO Work Phone: GynecologyComment on above:Vaginal BleedingStart: 05-01-2023 End: 37-36-9000qehxighrxhHIPQTYang Stanleycility:[facility] Start: 05-01-2023 End: 55-57-9768Pjjbtyc encounter Lisa Downs APRN.[employer] Work Phone: GynecologyComment on above:Chronic pelvic pain in female (Primary Dx); Constipation, unspecified constipation type; High-tone pelvic floor dysfunction; Diastasis of rectus abdominis; Dysmenorrhea; Other specified dyspareuniaStart: 52-31-0525ouhwlbwzinUdhhc Billow DO Work Phone: Obstetrics/GynecologyComment on above:painfulStart: 01-31-2023 End: 45-19-3413Wogyjuicj department patient visitAstrit Phuc [facility] Start: 12-30-2022 End: 21-39-4189Cvxsnax encounter procedureAstrit Phuc [facility] Start: 12-05-2022 End: 41-65-5600iwygkwevdgUGOXYakima [facility] SHSStart: 12-05-2022 End: 99-84-6514Vhjotj outpatient visit 15 minutesGin Leonorsrinath DAY Work Phone: [facility] HospitalComment on above:Pre- eclampsia, severe, delivered (Primary Dx)Start: 11-28-2022 End: 33-66-5215Hhffkeryzs and management of inpatientMayo Clinic FloridaStart: 11-28-2022 End: 15-60-8402Ismwddspfd and management of inpatientDaviess Community Hospital Work Phone: [facility] POSTPARTUMComment on above:Preeclampsia, severe, third trimester (Primary Dx)Start: 11-28-2022 End: 97-94-3348Gbb-admission assessmentGregrosa DORSEY [facility] Start: 11-27-2022 End: 24-47-2653KB TriageGregrosa DORSEY [facility] Start: 07-14-2022 End: 76-56-8196Cgctmowpe department patient visitCharlotteshayjunior Villagomez [facility] Start: 07-14-2022 End: 43-71-0454DX TriageNathan POP [facility] Start: 04-25-2022 End: 30-87-9747Hcvvoca encounter procedureCAMERON DITTY [facility] Start: 04-18-2022 End: 21-36-6365pwplypgviwIqfcmru Ditty Other [place] [employer] Other Start: 10-44-8655Jxrtpfx encounter procedureCamdorene CarrilloyFPG GastroenterologyStart: 66-99-1169Gimuxa outpatient visit 15 minutes Charlene Rodriguez DO Work Phone: [phone]-FOZWN-[address] Work Phone: Start: 09-29-2021 End: 73-84-7608pfmshvdriwVANQM ROWENA [facility] HospitalStart: 09-29-2021 End: 69-03-2104nzvupwiypzDNOWZ ROWENASt. Elizabeth Hospital HospitalStart: 67-86-2984JOHXDDyiyp Billow DO Work Phone: [phone]-ITFTT-[address] Work Phone: Start: 53-22-7902YEBFJMWFOP, Provider: Charlene Rodriguez, Status: Pen, Time: 2:45 Ina Chau MD Work Phone: [phone]-Fnckruz-[place] Work Phone: Start: 92-89-0882Riaum Oswaldo Chau MD Work Phone: [phone]-Dyoeako-[place] Work Phone: Procedures DateProcedureProcedure DetailPerforming ClinicianStart: 90-90-1503NM OB BPP W NON-STRESSKristina Elsa SALES DEVELOPMENT EXECUTIVE Work Phone: Start: 60-84-1120Kzunk dip stick/tablet rgnt non-auto w/o micrscpCorey Kiesha DO Work Phone: Start: 50-58-6395NM OB BPP W NON-STRESSKristina Elsa SALES DEVELOPMENT EXECUTIVE Work Phone: Start: 69-10-6146FJ OB BPP W NON-STRESSKristina Elsa SALES DEVELOPMENT EXECUTIVE Work Phone: Start: 26-51-5669Ryhlz dip stick/tablet rgnt non-auto w/o micrscpCorey Kiesha DO Work Phone: Start: 65-64-6981ZAK BUNCorey Kiesha DO Work Phone: Start: 93-82-4075AFU URIC ACIDCorey Kiesha DO Work Phone: Start: 60-84-7335RHV ALTCorey Kiesha DO Work Phone: Start: 17-35-4019YIG ASTCorey Kiesha DO Work Phone: Start: 65-99-5744JDN CREATININECorey Kiesha DO Work Phone: Start: 06-76-9566VBY URINE T PROTEIN CREAT RATIOCorey Kiesha DO Work Phone: Start: 01-35-9793Iiwko dip stick/tablet rgnt non-auto w/o micrscpKristina Elsa SALES DEVELOPMENT EXECUTIVE Work Phone: Start: 50-26-6440UBE TOTAL PROTEIN 24 HOUR URINE Generic External Data ProviderStart: 98-22-3122KQ OB BPP W NON-STRESS Steph Elsa SALES DEVELOPMENT EXECUTIVE Work Phone: Start: 54-32-5636AGA URINE T PROTEIN CREAT RATIO Generic External Data ProviderStart: 46-80-5514KEA CBC WITH AUTO DIFFGeneric External Data ProviderStart: 30-57-8236Ikjmq dip stick/tablet rgnt non-auto w/o micrscpKristina Elsa SALES DEVELOPMENT EXECUTIVE Work Phone: Start: 82-99-0419Sswdvuzo identified in Urine by CultureGeneric External Data ProviderStart: 56-75-3401Bcrncof quantitative blood xcpt reagent stripNot In System Ref ProvStart: 77-33-1330KDQNLT HOUR GLUCOSE TOLERANCE 100 GM LOADNot In System Ref ProvStart: 55-42-3677Kynus dip stick/tablet rgnt non-auto w/o micrscpCorey Kiesha DO Work Phone: Start: 62-19-6243TWG 1H POST 50G LOADNot In System Ref ProvStart: 05-19-3709JFU, SERUM, OPEN SPINA BIFIDACorey Kiesha DO Work Phone: Start: 96-81-3936Kchnu dip stick/tablet rgnt non-auto w/o micrscpCorey Kiesha DO Work Phone: Start: 69-89-2194ABBONXTTC VAGINITIS (HTRX)Nathan Kiesha DO Work Phone: Start: 12-70-6306Upokp dip stick/tablet rgnt non-auto w/o micrscpCorey Kiesha DO Work Phone: Start: 62-32-6616Wpfpl dip stick/tablet rgnt non-auto w/o micrscpCorey Kiesha DO Work Phone: Start: 55-43-0444Tiuxajzb screenMadhuri Monroy MD Work Phone: Start: 41-21-6531Ltew scrn 1+ class nonchromoNot In System Ref ProvStart: 86-54-2318Utxqyujvaa glycosylated b4qWhrbu R Kiesha DO Work Phone: Start: 57-60-4290Vzqegvpxe c antibodyNot In System Ref ProvStart: 69-37-4518GHC 1&2 AB/AG SCREEN (P24 AG)Not In System Ref ProvStart: 52-83-1047Wztf ia hepatitis b surface antigenNot In System Ref ProvStart: 79-31-6565QGLO AND SCREENNot In System Ref ProvStart: 71-69-3822PSM TESTCorey Kiesha DO Work Phone: Start: 16-36-0421Tsill dip stick/tablet rgnt non-auto w/o micrscpCorey Kiesha DO Work Phone: Start: 83-85-8650IB OB TRANSVAGINALCorey Kiesha DO Work Phone: Start: 18-87-3904WRK,APTIMA HPV,AGE GDLNCorey Kiesha DO Work Phone: Start: 55-56-2299Ewvwcmybulh observation [Identifier] in Cervix by Cyto stainCorey Kiesha DO Work Phone: Start: 57-72-0260GOH 12-LEADCorey Ikesha DO Work Phone: Start: 52-28-9597HW PELVIS W/ TRANSVAGINALCorey Kiesha DO Work Phone: Start: 46-79-3836Ovzt cerv/vag auto thin layer prep mnl screenCorey Kiesha DO Work Phone: Start: 46-78-2784Rmz pelvis w/o & w/contrast material Charlene Billow DO Work Phone: Start: 07-91-4467Mialp count platelet automatedMichael O'Cormier HEALTH TECH - SHEET ROLLER OPERATOR Work Phone: Start: 26-91-0107Zypzy count platelet automatedCassie Constantino MD Work Phone: Start: 55-99-1134Wkxjj streptococcus group b amplified probe tqCassie Constantino MD Work Phone: Start: 65-17-4069NSS and Rh group [Type] in Blood by Confirmatory Carmine Constantino MD Work Phone: Start: 14-06-1422Dodls typing serologic Cait Constantino MD Work Phone: Start: 80-22-0757Lsjkoafwirenc metabolic panelCassie Constantino MD Work Phone: Start: 99-81-0379Zkydwuhe hiv-1&hiv-2 single result Megadyne [phone]: 70-51-5991Rpsi ia hepatitis b surface antigenMegaalexis [id number]: 56-00-8917WviywbhqbuLPFEZUQ EDWARD Start: 08-30-2020 End: 80-02-9380Jxoksrqr screenComment on above:Performed By: #### T+S #### [facility] [address] [place], [place] [address]Srffc Comment: TEST TYPE + SCREEN WAS CANCELLED, 08/30/2020 13:37 JOP.Performed By: #### T+S #### [facility] [address] [place], [place] [address]Rirna: 18-83-2718HLIXP SHOULDER OPEN DISTAL CLAVICLE EXCISION 1CAMERON LOVESilversky Comment on above:RIGHT SHOULDER OPEN DISTAL CLAVICLE EXCISIONRIGHT SHOULDER OPEN DISTAL CLAVICLE EXCISIONAppendectomyCAMERON LOVESilversky betamethasone (substance)Fredi WILLIAN comment on above:Dose #1: 11/27/22ColonoscopyCAMERON EDWARD Endoscope, device (physical object)[place]on [place]oco LaparoscopyTeri Chau MD Work Phone: Plan of Treatment DateCare ActivityDetailAuthorStart: 68-78-3397Smiyfi Vaccines (1 of 2)Zoster Vaccines (1 of 2)[facility] HealthStart: 36-14-3737Gwqssqhfi for malignant neoplasm of cervixNOMS HealthcareStart: 85-48-5194Upadrxhqt for malignant neoplasm of cervixPap SmearNOMS HealthcareStart: 98-58-3908Hgshg BMI ScreeningAdult BMI ScreeningProMercy Health Willard Hospitalca Health SystemStart: 72-60-1723Lwjhinj ScreeningTobacco ScreeningProMercy Health Willard Hospitalca Health SystemStart: 30-74-1360Ghjaw BMI ScreeningAdult BMI ScreeningProMercy Health Willard Hospitalca Health SystemStart: 95-82-0589Qcwww BMI ScreeningAdult BMI ScreeningProMedica Health SystemStart: 11-03-2025 End: 17-06-3365Uncloys encounter yyfyrlyii76/09/2025 2:30 PM EST Office Visit Maternal- Medicine at [facility] [address] [place] [address] Chivo Springer PA-C [address] [facility] [address] [address] [facility] 10-14-2025 End: 45-92-3353Tpkpcyj encounter ubpbmqbdv31/19/2025 3:30 PM EST Routine NOMS Patti YOUNGN [address] [facility] [address] [place], [id number] Nathan Pop DO [address] [facility] [address] [place] [address] NOMShalonda IYERGYNStart: 10-08-2025 End: 38-50-5568Odzfqzn encounter bcrffexxp12/13/2025 8:00 AM EST Appointment [facility] [place] [address] [facility] [address] [place] [address] [phone] Medicine [place]villeStart: 10-06-2025 End: 62-33-0981Adijoltljlmd consultation with rwhevba9610/06/2025 2:30 PM EST Telemedicine Maternal- Medicine at [facility] [address] [place] [address] Chivo Springer PA-C [address] [facility] [address] [address] [facility] 10-05-2025 End: 83-81-2983Wxjxfty encounter gfpthcfjo86/10/2025 3:00 PM EST Office Visit Maternal- Medicine at [facility] [address] [place] [address] Chivo Springer PA-C [address] [facility] [address] [address] [facility]: 10-05-2025 End: 56-98-3569Ygodbfmzyakd consultation with prupikj2310/05/2025 3:00 PM EST Telemedicine Maternal- Medicine at [facility] [address] [place] [address] Chivo Springer PA-C [address] [address] [facility]: 46-01-8758MHV ( or age 60+ yrs) (1 - Risk 1-dose series)RSV ( or age 60+ yrs) (1 - Risk 1-dose series)[facility]: 09-30-2025 End: 09-51-3771Ffsvjmh encounter procedureNOMS Patti YOUNGNComment on above: ArrivedStart: 09-16-2025 End: 72-21-7715QB biophysical profile w non stress testUS biophysical profile w non stress test Imaging Routine Gestational diabetes mellitus (GDM),antepartum, gestational diabetes method of control unspecified ([facility]) Expected: 09/16/2025, Expires: 09/16/2026NOMS HealthcareComment on above:Expected: 09/16/2025, Expires: 09/16/2026Start: 09-15-2025 End: 03-32-3490Eyykpri encounter jpbigyioz53/21/2025 2:50 PM EDT Routine NOMShalonda MOODY [address] [place], [id number] Zenobia Gutierrez PA [address] [place] [address] NOMShalonda Izaguirrert: 09-10-2025 End: 35-47-7898Kcifvqtwtfho consultation with qhrbqrf7809/10/2025 11:00 AM EDT Telemedicine Maternal Medicine [place] [address] [phone] Madhuri Monroy MD [address] [facility] LAN, [address] [place] [address] [facility] Medicine [place]Start: 09-10-2025 End: 88-48-1535Aqmbmgd encounter uoqvqyqng50/16/2025 9:45 AM EDT Appointment Maternal Medicine [place] [address] [address] [phone] Medicine [facility]: 09-07-2025 End: 87-88-2917Vjtjwev encounter procedureNOMS BCP OBStart: 09-04-2025 End: 25-39-5913Vracedi encounter llpphzuhb94/10/2025 3:00 PM EDT Office Visit Maternal- Medicine at [facility] [address] [facility] [place] [address] Mine Denise MD [address] [facility], [address] [place] [address] [facility]: 09-03-2025 End: 41-58-9275Niskrey encounter procedureNOMS [place] OBGYNComment on above: [facility] CenterStart: 08-27-2025 End: 59-67-1327Ltzytcl encounter nzbecfksy62/02/2025 3:20 PM EDT Routine NOMShalonda [place] OBGYN [address] [place], [phone] Steph Keane NP [address] [place] [address] NOMS Patti Izaguirrert: 08-27-2025 End: 96-18-3072Ffdjrrm aminotransferase [Enzymatic activity/volume] in Serum or PlasmaALT Lab Routine induced hypertension, antepartum ([facility]) Expected: 08/27/2025 (Approximate), Expires: 08/27/2026[facility] HealthcareComment on above:Expected: 08/27/2025 (Approximate), Expires: 08/27/2026Start: 08-27-2025 End: 26-80-5426Quaxmafwj aminotransferase [Enzymatic activity/volume] in Serum or PlasmaAST Lab Routine induced hypertension, antepartum ([facility]HS-HCC) Expected: 08/27/2025 (Approximate), Expires: 08/27/2026[facility] HealthcareComment on above:Expected: 08/27/2025 (Approximate), Expires: 08/27/2026Start: 08-27-2025 End: 78-83-7578RPS W Auto Differential panel - BloodCBC and differential Lab Routine induced hypertension, antepartum ([facility]HS-HCC) Expected: 12/2024 (Approximate), Expires: 08/27/2026[facility] HealthcareComment on above: Expected: 08/27/2025 (Approximate), Expires: 08/27/2026art: 08-27-2025 End: 84-40-9951Jmzugyyhct [Mass/volume] in Serum or PlasmaCreatinine Lab Routine induced hypertension, antepartum ([facility]HS-HCC) Expected: 08/27/2025 (Ap proximate), Expires: 08/27/2026[facility] Healthcare Work Phone: comment on above:Expected: 08/27/2025 (Approximate), Expires: 08/27/2026Start: 08-27-2025 End: 82-19-9023Xbwnjau dehydrogenase [Enzymatic activity/volume] in Serum or Plasma by Lactate to pyruvate reactionLactate dehydrogenase Lab Routine induced hypertension, antepartum ([facility]HS-HCC) Expected: 08/27/2025, Expires: 08/27/2026[facility] HealthcareComment on above:Expected: 08/27/2025, Expires: 08/27/2026Start: 08-27-2025 End: 26-17-4575Cktfllv, urine, 24 hourProtein, urine, 24 hour Lab Routine induced hypertension, antepartum ([facility]HS-HCC) Expected: 08/27/2025 (Approximate), Expires: 08/27/2026[facility] HealthcareComment on above:Expected: 08/27/2025 (Approximate), Expires: 08/27/2026Start: 08-27-2025 End: 34-74-8518Xi and pttPt and ptt Lab Routine induced hypertension, antepartum ([facility]HS-HCC) Expected: 08/27/2025, Expires: 08/27/2026[facility] Comment on above:Expected: 08/27/2025, Expires: 08/27/2026Start: 08-27-2025 End: 34-22-6742Vlxsg [Mass/volume] in Serum or PlasmaUric acid Lab Routine induced hypertension, antepartum ([facility]-HCC) Expected: 08/27/2025 (Bouchra roximate), Expires: 08/27/2026[facility] HealthcareComment on above:Expected: 08/27/2025 (Approximate), Expires: 08/27/2026Start: 08-27-2025 End: 41-05-5482Fuxn nitrogen [Mass/volume] in Serum or PlasmaBUN Lab Routine induced hypertension, antepartum (HHS-HCC) Expected: 08/27/2025, Expires:08/27/2026[facility] HealthcareComment on above:Expected: 08/27/2025, Expires: 08/27/2026Start: 08-27-2025 End: 33-97-5086OJ biophysical profile w non stress testUS biophysical profile w non stress test Imaging Routine induced hypertension, antepartum ([facility]) Gestational diabetes mellitus (GDM) in second trimester, gestational diabetes method of control unspecified ([facility]) Expected: 08/27/2025 (Approximate), Expires: 02/25/2026[facility] HealthcareComment on above:Expected: 08/27/2025 (Approximate), Expires: 02/25/2026Start: 08-24-2025 End: 25-24-6876uygkvqvzch80/29/2025 1:30 PM EDT Support Visit Maternal- Medicine at [facility] [address] [place] [facility] [place] [phone] Teena Sarmiento, RN [address] [facility], [address] [place] [address] Kerline Augustin, RD [address] [facility], [address] [place] [address] [facility] 08-24-2025 End: 30-57-2779Dajutjh encounter yflrfalbt95/29/2025 11:00 AM EDT Office Visit [facility]S BCP OB [address] [place] [phone] Nathan Pop, DO [address] [place] [address] NOMS BCP OBStart: 08-12-2025 End: 45-41-9115Hgwawxq encounter uimjngque83/17/2025 2:40 PM EDT Routine NOMShalonda YOUNGN [address] [place], [id number] Nathan Pop, DO [address] [place] [address] NOMShalnoda [place] OBGYNStart: 08-12-2025 End: 83-70-3733Sdpggkhdgwh of glucose 3 hours after glucose challenge for glucose tolerance testGlucose tolerance, 3 hours Lab Routine Elevated glucose tolerance test Expected: 08/12/2025 (Approximate), Expires: 08/12/2026[facility] Work Phone: comment on above:Expected: 08/12/2025 (Approximate), Expires: 08/12/2026Start: 08-12-2025 End: 86-38-4272Bvyyljsngrkk / ancillary services uixnihpvlq70/17/2025 2:00 PM EDT Ancillary Procedure NOMS Patti YOUNGN [address] [place] [address] [place] [address] JAKA Patti OBGYNStart: 07-31-2025 End: 99-10-7910DFC W Auto Differential panel - BloodCBC and differential Lab Routine Hypertension, unspecified type Wellness examination Expected: 07/31/2025 (Approximate), Expires: 08/29/2025[facility] Work Phone: Comment on above:Expected: 07/31/2025 (Approximate), Expires: 08/29/2025Start: 07-31-2025 End: 20-97-3410Pomohttmulype metabolic 2000 panel - Serum or PlasmaComprehensive metabolic panel Lab Routine Hypertension, unspecified type Wellness examination Expected: 07/31/2025 (Approximate), Expires: 08/29/2025[facility] HealthcareComment on above:Expected: 07/31/2025 (Approximate), Expires: 08/29/2025Start: 07-31-2025 End: 51-48-9715Txyki 1996 panel - Serum or PlasmaLipid panel Lab Routine Wellness examination Lipid screening Expected: 07/31/2025 (Approximate), Exp ires: 08/29/2025[facility] HealthcareComment on above:Expected: 07/31/2025 (Approximate), Expires: 08/29/2025Start: 07-30-2025 End: 15-74-4816Nkodyhx encounter koaejylyy67/04/2025 3:40 PM EDT Office Visit [facility] [address] [place] [address] [place] [address] Eliceo Beltran DO [address] [place] [address] [place] [address] ArrivedNOFormerly [facility] 230Comment on above:ArrivedStart: 24-10-7364DDQEK-19 Vaccine ( season)COVID-19 Vaccine ( season)[facility] HealthcareStart: 07-27-2025 Influenza vaccinationNOIL HealthcareStart: 07-15-2025 End: 85-14-5955Relkkpa encounter cpdahbgex15/20/2025 3:30 PM EDT Routine NOMS Patti OBGYN [address] [place], [id number] Nathan Pop, [address] [place] [address] NOMS Patti OBGYNStart: 07-15-2025 End: 25-82-8397Bwjukpvmrhuv / ancillary services nuvtivayzk27/20/2025 2:30 PM EDT Ancillary Procedure NOMS Patti OBGYN [address] [place] [phone] NOMS Armstro[place] OBGYNStart: 07-15-2025 End: 70-91-0836IGW panel - Blood by Automated countCBC Lab Routine Diabetes mellitus screening Expected: 07/15/2025 (Approximate), Expires: 07/15/2026[facility] Work Phone: comment on above:Expected: 07/15/2025 (Approximate), Expires: 07/15/2026Start: 07-15-2025 End: 45-60-1145Iemiagjkbtg of glucose 1 hour after glucose challenge for glucose tolerance testGlucose tolerance, 1 hour Lab Routine Diabetes mellitus screening Expected: 07/15/2025 (Approximate), Expires: 07/15/2026[facility] HealthcareComment on above:Expected: 07/15/2025 (Approximate), Expires: 07/15/2026Start: 06-22-2025 End: 82-75-6692Zcckath encounter qqthfwbwe48/28/2025 2:10 PM EDT Routine NOMS Patti OBGYN [address] [place], [id number] Nathan Pop, [address] [place] [address] ArrivedNOMS Patti OBGYNComment on above:ArrivedStart: 06-22-2025 End: 84-11-7314Kcahx fetoprotein, maternalAlpha fetoprotein, maternal Lab Routine Second trimester ([facility]) 17 weeks gestation of ([facility]) Expected: 06/22/2025 (Approximate), Expires: 12/23/2025[facility] Healthcare Comment on above:Expected: 06/22/2025 (Approximate), Expires: 12/23/2025Start: 06-22-2025 End: 73-89-6049HZ for pregnancyUS OB 14+ weeks anatomy scan Imaging Routine Screening, , for anatomic survey ([facility]) Expected: 06/22/2025, Expires: 09/22/2025[facility] Healthcare Work Phone: comment on above:Expected: 06/22/2025, Expires: 09/22/2025Start: 05-25-2025 End: 50-46-3888Uvmostv encounter olrhuyqru41/30/2025 2:40 PM EDT Routine NOMS BCP OB [address] [place] [phone] Nathan Pop, DO [address] [facility] [address] [place] [address] NOMS BCP OBStart: 05-01-2025 End: 32-98-4634QIV/RhABO/Rh Lab Routine Missed menses , unspecified gestational age Expected: 05/01/2025 (Approximate), Expires: 05/01/2026[facility] HealthcareComment on above:Expected: 05/01/2025 (Approximate), Expires: 05/01/2026Start: 05-01-2025 End: 13-25-6002Vffcy type and Indirect antibody screen panel - BloodType and screen Lab Routine Missed menses , unspecified gestational age Expected: 05/01/2025 (Approximate), Expires: 05/01/2026[facility] Healthcare Work Phone: comment on above:Expected: 05/01/2025 (Approximate), Expires: 05/01/2026Start: 05-01-2025 End: 55-55-5093Xdzoy of abuse panel - Urine by Screen methodRapid drug screen, urine Lab Routine , unspecified gestational age Encounter for supervision of normal first in first trimester Expected: 05/01/2025 (Approximate), Expires: 05/01/2026N[facility] HealthcareComment on above:Expected: 05/01/2025 (Approximate), Expires: 05/01/2026Start: 01-19-2025 End: 46-65-2431Xxyzhhf encounter procedureNOMS BCP OBComment on above:Arrived Start: 01-19-2025 End: 27-28-0468WhfftlddctmzLdiyeumxpflg Lab Routine Pain in female genitalia on intercourse Endometriosis Expected: 01/19/2025(Approximate), Expires: 01/19/2026 [facility] Work Phone: comment on above:Expected: 01/19/2025 (Approximate), Expires: 01/19/2026Start: 08-18-2024 End: 34-84-9299Ljbmpte encounter procedureNOMS BCP OBComment on above:Arrived Start: 00-76-0859Mhxdfcstm vaccinationUniversity Hospitals Beachwood Medical Centertart: 07-22-2024 End: 02-04-9947RN for pregnancyUS PELVIS-TRANSVAG IF INDICATED Imaging Routine Dysmenorrhea, unspecified Expected: 07/22/2024 (Approximate), Expires: 07/22/2025[facility] Work Phone: comment on above:Expected: 07/22/2024 (Approximate), Expires: 07/22/2025Start: 06-23-2024 End: 29-29-9783Hlkneyf encounter vkkxqugzf84/29/2024 10:30 AM EDT Office Visit Obstetrics/Gynecology [address] [address] Charlene Rodriguez DO [address] [place] [address] 2 WEEK POST OPObstetrics/GynecologyComment on above:2 WEEK POST OPStart: 05-27-2024 End: 85-70-5782Hthqwbhpr to same day surgery rneqej1405/27/2024 7:30 AM EDT - 05/27/2024 9:30 AM EDT Surgery [facility] Surgery [address] [place] [address] Charlene Rodriguez, DO [address] [place] [address] LAPAROSCOPY FULGURATION OR EXCISION OF LESIONS OF THE OVARY PELVIC VISCERA OR PERITONEAL SURFACE BY ANY METHODParma Community General Hospital SurgeryComment on above:LAPAROSCOPY FULGURATION OR EXCISION OF LESIONS OF THE OVARY PELVIC VISCERA OR PERITONEAL SURFACE BYANY METHODStart: 05-27-2024 End: 59-52-4854Pbfi fulg/exc ovary viscera/peritoneal surfaceLAPAROSCOPY FULGURATION OR EXCISION OF LESIONS OF THE OVARY PELVIC VISCERA OR PERITONEAL SURFACE BYANY METHOD Endometriosis 05/27/2024 7:30 AM EDTME ORStart: 05-27-2024 Subsequent hospital visit by sitibyxen17/02/2024 7:30 AM EDT Hospital Encounter [facility] Surgery [address] [place] [address] Charlene Rodriguez, DO [address] [place] [address] [phone] (F ax) Endometriosis [N80.9][facility] SurgeryComment on above:Endometriosis [N80.9]Start: 15-79-4142Revacniqt vaccinationInfluenza Vaccine (#1)[facility]OMS HealthcareComment on above:Postponed from 07/27/2023 (Patient Refused)Start: 05-20-2024 End: 80-28-2368nqfxonfrxc13/25/2024 10:00 AM EDT [facility] Emergency Department 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 [facility] [place] [facility] [address] [address] Pires, [employer] 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 Nurse [address] [address] RN GLENNGYN [facility] [place] MOBComment on above:RN TEACHINGStart: 04-22-2024 End: 83-14-6518Jrljdcq encounter ltbgjsawa98/28/2024 9:00 AM EDT Office Visit [facility] [address] [place] [address] Denny Rodríguez MD [address] [place] [address] NOMS SEP FMStart: 87-46-8257WRgX,Tdap and Td Vaccines (7 - Td or Tdap)DTaP,Tdap and Td Vaccines (7 - Td or Tdap)[facility] SystemStart: 30-47-1653QVuX/Tdap/Td Vaccines (7 - Td or Tdap)DTaP/Tdap/Td Vaccines (7 - Td or Tdap)[facility] HospitalStart: 57-08-7751Bzzpj microalbumin profileDTaP,Tdap,Td Vaccine (7 - Td or Tdap)[facility] Centertart: 01-30-2024 End: 49-92-5412Ciawpru encounter dzhnviwkd85/06/2024 11:10 AM EST Consult [facility] OB [address] [place] [address] Nathan Pop DO [address] [place] [address] [facility] OBStart: 01-15-2024 End: 04-69-0401Skrbzpmzhzjj / ancillary services izotbdgttm97/20/2024 8:00 AM EST Ancillary Procedure [facility] [address] [place] [address] [facility] OBStart: 01-10-2024 End: 76-54-9171YI for pregnancyUS PELVIS-TRANSVAG IF INDICATED Imaging Routine Pelvic pain in female Expected: 01/10/2024 (Approximate), Expires: 01/10/2025 [facility] Work Phone: comment on above:Expected: 01/10/2024 (Approximate), Expires: 01/10/2025Start: 21-54-8679Strtxvsiza Health ScreeningBehavioral Health ScreeningUniversity Hospitals Beachwood Medical Centertart: 08-79-9381Zfhcgydexl AssessmentDepression AssessmentCleMarymount Hospitaltart: 39-33-5175Lvorx-19 Vaccine ( season) Covid-19 Vaccine ( season)[facility] Centertart: 63-70-1819Osnwzzovx vaccinationUniversity Hospitals Beachwood Medical Centertart: 72-08-2467HFWFKGAMNM ASSESSMENTDEPRESSION ASSESSMENTUniversity Hospitals Beachwood Medical Centertart: 07-56-2372Miysibbza vaccinationInfluenza Vaccine (#1)[facility] HospitalStart: 54-94-8909QXN, Provider: Charlene Rodriguez, Status: Pen, Time: 1:30 PMFUV, Provider: Charlene Rodriguez, Status: Pen, Time: 1:30 PM PA-WFXBZ-Hsqzdk 320 Work Phone: Start: 09-65-6728RPC, Provider: Charlene Rodriguez, Status: Pen, Time: 11:15 AMFUV, Provider: Charlene Rodriguez, Status: Pen, Time: 11:15 AM FS-UXLSX-Acmvdk 320 Work Phone: Start: 95-85-3799LAY TESTINGPAP TESTINGUniversity Hospitals Beachwood Medical Centertart: 15-35-2346Pklwzwckw for malignant neoplasm of cervixUniversity Hospitals Beachwood Medical Centertart: 67-30-7359EDwY,Tdap and Td Vaccines (1 - Tdap)DTaP,Tdap and Td Vaccines (1 - Tdap)[facility]: 52-15-5921UMgL/Tdap/Td Vaccines (1 - Tdap)DTaP/Tdap/Td Vaccines (1 - Tdap)[facility] HospitalStart: 34-64-0202Xvtpv microalbumin profileUniversity Hospitals Beachwood Medical Centertart: 43-12-5358Fzkhy BMI Follow Up Plan Adult BMI Follow Up PlanCaroMont Healthtart: 53-59-7098Wvxca BMI ScreeningAdult BMI ScreeningCaroMont Healthtart: 58-00-8711SPEBHZ PCP TEAM CHRONIC DISEASE VISITANNUAL PCP TEAM CHRONIC DISEASE VISITOhiohealth Grove City [facility] Start: 16-95-5640SL CONTROLLED (<130/80)BP CONTROLLED (<130/80)[facility] Start: 50-34-6384RVJIMNFAE C SCREENINGHEPATITIS C SCREENINGOhiohealth [facility] Hospital Start: 38-23-5243Yqxsxnujx C screeningHepatitis C ScreeningOhiohealth Grove City [facility] Hospital Start: 46-91-9781EHB SCREENINGHIV SCREENINGUniversity Hospitals Beachwood Medical Centertart: 08-65-9324IXO screeningHIV ScreeningUniversity Hospitals Beachwood Medical Centertart: 23-21-3936Vcdytyv of varicella vaccinationVaricella Vaccines (1 of 2 - 13+ 2-dose series)[facility] HospitalStart: 35-18-3203Vgugssileq ScreeningDepression ScreeningCaroMont Healthtart: 10-25-4079Qwpiovz ScreeningTobacco ScreeningCaroMont Healthtart: 10-82-5907Otkykgiuf vaccinationVaricella Vaccines (1 of 2 - 2-dose childhood series)[facility] HospitalStart: 09-33-3703PPS Vaccines (1 of 1 - Standard series)MMR Vaccines (1 of 1 - Standard series)[facility] HospitalStart: 99-30-0543Ulcxypcxn vaccinationVaricella Vaccines (1 of 2 - 2-dose childhood series)[facility] Start: 47-88-1499SMPAF-19 VACCINE (#1)COVID-19 VACCINE (#1)[facility] Start: 99-86-0190GFEDAHGAT B (1 of 3 - 3-dose series)HEPATITIS B (1 of 3 - 3- dose series)[facility] Centertart: 97-98-8215Dbjpeyfie B Vaccine (1 of 3 - 3- dose series)Hepatitis B Vaccine (1 of 3 - 3-dose series)[facility] Centertart: 11-70-7936Sefjdohfk B Vaccines (1 of 3 - 3-dose series)Hepatitis B Vaccines (1 of 3 - 3-dose series)[facility] HospitalStart: 00-66-5798Rnatv panelLipid PanelSumma HealthBacteria identified in Urine by CultureUrine culture Microbiology Routine Missed menses Ordered: 05/01/2025[facility] HealthcareComment on above:Ordered: 05/01/2025BC W Auto Differential panel - BloodCBC and differential Lab Routine Missed menses , unspecified gestational age Ordered: 05/01/2025[facility] HealthcareComment on above:Ordered: 05/01/2025ytology Cervical or vaginal smear or scraping studyPap Smear Pathology and Cytology Routine Well woman exam with routine gynecological exam Ordered: 08/18/2024[facility] Healthcare Work Phone: comment on above:Ordered: 08/18/2024Hemoglobin A1c/Hemoglobin.total in BloodHemoglobin A1c Lab Routine Missed menses , unspecified gestational age Ordered: 05/01/2025[facility] HealthcareComment on above: Ordered: 05/01/2025Hepatitis B virus surface Ag [Presence] in Serum or Plasma by ImmunoassayHepatitis B surface antigen Lab Routine Missed menses , unspecified gestational age Ordered: 05/01/2025[facility] HealthcareComment on above: Ordered: 05/01/2025Hepatitis C virus Ab [Presence] in Serum or Plasma by ImmunoassayHepatitis C antibody Lab Routine Missed menses , unspecified gestational age Ordered: 05/01/2025[facility] HealthcareComment on above:Ordered: 05/01/2025HIV-1/HIV-2 antigen/antibody combination immunoassayHIV-1 and HIV-2 antibodies Lab Routine Missed menses , unspecified gestational age Ordered: 05/01/2025[facility] HealthcareComment on above:Ordered: 05/01/2025 End: 24-05-4209Pxx pelvis w/o & w/contrast materialMRI FEMALE PELVIS WO/W IVCON Radiology Routine Pelvic and perineal pain 1 [facility]ur[facility]2023 [facility]: Comment on above:1 Occurrences starting 05/17/2023 until 4Reagin Ab [Presence] in Serum by RPRRPR Lab Routine Missed menses , unspecified gestational age Ordered: 05/01/2025[facility] Comment on above:Ordered: 05/01/2025Rubella antibody, IgGRubella antibody, IgG Lab Routine Missed menses , unspecified gestational age Ordered: 04/2025[facility] HealthcareComment on above:Ordered: 05/01/2025 End: 33-24-8640[facility] Work Phone: Comment on above:Once (Lab) for 1 Occurrences starting 11/30/2022 until 11/30/2022, 1 completed End: 94-46-6488GD for pregnancyUS OB follow up transabdominal approach Imaging Routine Gestational diabetes mellitus (GDM), antepartum, gestational diabetes method of control unspecified ([facility]HS-HCC) every 4 weeks for 2 Occurrences starting 09/16/2025 until 12/17/2025[facility] Work Phone: comment on above:every 4 weeks for 2 [facility]ur[facility] Immun[facility] Immunization DateImmunizationNotesCare ZjvoyrqnScmkjtez70-50-2205ynunjqamk A vaccine, adult dosageCorey Kiesha DO Work Phone: [facility] HospitalSizkqdjvlx80-67-1831czpzl papilloma virus vaccine, quadrivalentCorey Kiesha DO Work Phone: [facility] HospitalJziqbszafh66-73-9070sdvzlqjwj, seasonal, injectable, preservative freeCorey Kiesha DO Work Phone: [facility] HospitalFtstjsjdxi11-47-3253usbxvonuv virus vaccine, unspecified formulationGina Moschella DO Work Phone: [facility] HospitalPmsztg16-46-6720limsw papilloma virus vaccine, quadrivalentCorey Kiesha DO Work Phone: [facility] HospitalWgeschalnh31-28-3051kljhrgjcg A vaccine, adult dosageCorey Kiesha DO Work Phone: [facility] HospitalXsvrawqxjg76-02-1073eviuo papilloma virus vaccine, quadrivalentCorey Kiesha DO Work Phone: [facility] HospitalAgvkyqusgl40-86-2686yrtfjaf toxoid, reduced diphtheria toxoid, and acellular pertussis vaccine, adsorbedCorey Kiesha DO Work Phone: [facility] HospitalTpponpekhv80-81-4624bzibvyhuvnljp polysaccharide (groups A, C, Y and W-135) diphtheria toxoid conjugate vaccine (MCV4P)Nathan Kiesha DO Work Phone: [facility] HospitalXaevkwtdcc56-33-5647saskvocfdx, tetanus toxoids and acellular pertussis vaccine, unspecified formulationCorey Kiesha DO Work Phone: [facility] HospitalMpzbtatohf03-94-0728alhufuu, mumps and rubella virus vaccineCorey Kiesha DO Work Phone: [facility] HospitalQynceepqyw34-99-9820woagucgczs vaccine, inactivatedCorey Kiesha DO Work Phone: [phone] HospitalQpwdkfsirh24-55-1427seofjnvmqt, tetanus toxoids and acellular pertussis vaccine, unspecified formulationCorey Kiesha DO Work Phone: [phone] HospitalXbzmhdqvvi42-27-7757YQD-Hhhlrbnsafp influenzae type b conjugate vaccineCorey Kiesha DO Work Phone: [phone] HospitalZvnsctfsng50-16-9775xjnimwipv B vaccine, pediatric or pediatric/adolescent dosageCorey Kiesha DO Work Phone: [phone] HospitalMhkbkzfhij26-62-4274ryvdptv, mumps and rubella virus vaccineCorey Kiesha DO Work Phone: [phone] [place], [place] [address]Ocrpvnjprv20-24-4176fmfxfxppy poliovirus vaccine, live, oralCorey Kiesha DO Work Phone: [phone] [place], [place] [address]Vjgkojxwvg57-64-8135RAV-Ngvaisnlwfm influenzae type b conjugate vaccineCorey Kiesha DO Work Phone: [phone] [place], [place] [address]Vwgavphzkm13-80-9141pfzmzhshg B vaccine, pediatric or pediatric/adolescent dosageCorey Kiesha DO Work Phone: [phone] [place], [place] [address]Wyalvmllch63-10-3699zekwsqucw poliovirus vaccine, live, oralCorey Kiesha DO Work Phone: [phone] [place], [place] [address]Ohqywumeew76-10-5234AAS-Nbspwtmkmhq influenzae type b conjugate vaccineCorey Kiesha DO Work Phone: [phone] [place], [place] [address]Nuqmfgbkpp89-94-0136yvkhakfme B vaccine, pediatric or pediatric/adolescent dosageCorey Kiesha DO Work Phone: [phone] [place], [place] [address]Dyzzaalkxv78-85-2567oufivzjyg poliovirus vaccine, live, oralCorey Kiesha DO Work Phone: [phone] HealthcareNEGATED: Highlighted row has not occurred!71-15-5618qxobtkg, mumps and rubella virus vaccineKatcarlos Ryder DO Work Phone: [facility] HealthComment on above:Deferred: Other - Rubella ImmuneNEGATED: Highlighted row has not occurred!85-55-1944ztvknmm toxoid, reduced diphtheria toxoid, and acellular pertussis vaccine, janetKathe Ryder DO Work Phone: [facility] HospitalComment on above:Deferred: No longer needed - Refused Tdap vaccine. Payers DatePayer CategoryPayerPolicy [id number]-[id number] Managed Care - [facility] [id number] [facility]ICA[facility] [id number] [id number] [id number]9430-88-7701Nzbqzku29-36-9596 [id number] Health Insurance [id number] [id number] Health [id number] 2..1.213659.3.579.2.174 [id number] 2..1.534271.3.57[id number] 2..1.514280.3.57[id number] 2..1.474267.3.579.2.[id number] 2..1.452079.3.579.2.40650-50-1897Dpbvfzt54122226 2..1.879056.3.579.2.83459-48-2069Utuqkaj83991172 2..1.113028.3.57[id number] 2..1.346214.3.579.[id number] 2.840.1.748413.3.57[id number] 2.0.1.249993.3.57[id number] 2.840.1.810668.3.579.2.159894-58-5387Ixxjwbn71312695 2.0.1.906181.3.579.2.808396-12-5722Pzxzpmz43813117 2..1.957877.3.579.2.106466-60-5686Whevtlj35258654 2.0.1.068202.3.579.2.617465-76-2282Xcankqz54525260 2..1.130578.3.579.2.353028-97-0780Eylcxnx44039526 2..1.207287.3.579.2.870937-01-3925Wulzmfp87042279 2..1.865989.3.579.2.290301-90-1223Slnahry61915147 2..1.619736.3.579.2.883042-75-6489Abnhbxs26600177 2..1.084657.3.579.2.240963-67-5763Oylfgax93873397 2.0.1.842909.3.579.2.563844-48-7329Rsvdkup65318497 2..1.197134.3.579.2.162013-67-5765Eflupkq19919842 2.0.1.838425.3.579.2.193686-01-0970Dzaayql1653194 2.840.1.199625.3.579.2.274472-65-0496Pbgotxz0386601 2..840.1.558081.3.579.2.462750-45-6328Khrhpch980350816 2..840.1.320422.3.579.2.306960-87-6264Qanthli545019654 2..840.1.357639.3.579.2.672178-35-4419Xriqdio987805445 2.16.840.1.198874.3.579.2.6059Wigcwcg77440099 2.840.1.095488.3.579.2.531 Social History DateTypeDetailFacilityStart: 01-06-2021 End: 66-84-9334Tzzmyv uses seat beltAlways uses seat beltNOMS HealthcareStart: 12-10-2018 End: 07-47-4214Uvgjofi smoking statusNever smoked tobacco (finding)[facility] Hospitaltart: 30-69-1162Ubfpnmp smoking statusNeverTriHealth Bethesda North Hospitaltart: 01-06-2021 End: 19-33-1501Veq Assigned At [facility] [employer] Other ToSouthview Medical CenterComment on above: denies.Tobacco smoking statusTriHealth Bethesda North Hospitaltart: 12-10-2018 End: 44-20-4995Udjzygt use and exposureSmokeless tobacco non-userUniversity Hospitals Beachwood Medical Centertart: 04-11-2023 End: 16-45-4512Btxispa intakeCurrent drinker of alcohol (finding)[facility] Centertart: 25-01-8759Vetvfhh Commentmaybe a few drinks a monthOhiohealth Grove City [facility] Start: 51-27-6518Nbq Assigned At [facility] CenterNot on [facility] Southumwi HealthStart: 01-10-2024 End: 98-58-8422Ozzfper intakeLifetime non-drinker (finding)[facility] HealthWithin the last year, have you [...] got money to buy more.Never trueNOMS HealthcareStart: 08-65-1086Oqctygxvf94OFMX HealthcareStart: 20-37-0386Vqxsors Commentcaffeine: 1-2 cups per day, coffee and popNOIL HealthcareStart: 65-47-6984Boxvezw SDOH IPV Aqic4Ryuqn HealthStart: 05-42-2065Gnxaqvg SDOH Housing Places Qiydp3Tmjxc HealthStart: 04-12-2022 [facility] HealthStart: 11-18-2022 End: 85-52-8714Ynskaawd to SARS-CoV-2 (event)Not sureSuuniversity hospitals [facility] HealthAre you now , , , , never or living with a partner? MarriedNOMS HealthcareDo you feel stress - tense, restless, nervous, or anxious, or unable to sleep at night because yourmind is troubled all the time - these days [OSQ]Only a littleNOIL HealthcareStart: 12-02-2018 End: 50-24-3302UznAvwrlu (finding)[facility] Hospitaltart: 15-63-8418Afg Assigned At [facility] Hospitaltart: 08-19-2025 End: 99-36-0482Ioxptubzj beverage intakeCurrent non-drinker of alcohol (finding) [facility] HospitalLoopback PrintLess Plans System Medical Equipment Procedure CodeEquipment CodeEquipment Original TextEquipment IdentifierDates [id number]: 08-20-2025 End: each by In Vitro route Daily Use to check FSBS four times daily [id number]: 08-20-2025 End: 64-51-8797Vju pen needles to give insulin.[id number]: 09-04-2025 Functional Status QxzvUecldeuflhMmnmcyFxsimuja58-40-1517Eqwjh score [AUDIT-C]0 09/10/2025 10:17 AM EDT [facility]09-04-2025Patient Health Questionnaire 2 item (PHQ-2) [Reported][facility] HospitalWkmvsdbgsv05-13-6124Dppoj score [AUDIT-C]1 12/29/2024 10:25 PM EST Mychart, GenericNOMS Lmvqnlqbjr74-09-8299Nua often do you have a drink containing alcohol?Monthly or less 12/29/2024 10:25 PM EST Mychart, Generic Monthly or lessNOMS Hmumbgakmt77-35-0052Cvaeidehkz status Patient does not drink 12/29/2024 10:25 PM EST Mychart, Generic Patient does not drinkNOSt. Louis VA Medical CenterIyupipsbhn23-24-0208Cmj often do you have 6 or more drinks on 1 occasion?Never 12/29/2024 10:25 PM EST Mychart, Generic NeverNOMS [facility] 62-59-1528Kebhmcf Health Questionnaire 2 item (PHQ-2) [Reported][facility] 66-04-4150Rvknnmwibq StatusN/[facility]03-08-2023Functional StatusN/[facility]02-04-2023Functional StatusN/[facility]01-02-2023Functional StatusN/[facility] 07-14-2022N/[facility] Clinical Notes 04-18-2022 to 10-06-2025 Note Date & DqvmKivcRgqdcfea13-20-7701 History of Present illness Narrative* Chivo Springer PA-C - 10/06/2025 2:30 PM EST Maternal- Medicine Consultation VIDEO Patient is present at work, provider present at [facility] HISTORY OF PRESENT ILLNESS: Juhi Naidu Valetiana is a 30 y.o. female at 32w3d [...] predictive of increased fat mass in the women s offspring. Increased fat mass has been shown [...] of hypoglycemia, and examples of treatment ofhypoglycemia (1515 rule). Discussed her current diet and her [...] values to us weekly by e-mail to: [email or web address] or by fax to: [phone] Chivo Springer PA-C Maternal- Medicine Office phone: [phone] Chivo Springer PA-C 10/06/25 1606 documented in this encounterUniversity Hospitals Ahuja Medical Center11-10-2025 Miscellaneous Notes* Telephone Encounter - Anjana Davalos RN - 10/05/2025 2:39 PM EST Left message for patient to send in blood sugar logs prior to video visit toady in [facility] at 3 PM. Also, Instructed patient to contact [facility] if unable to keep appointment today at [facility], then to call at [phone] option 1 to reschedule. documented in this encounterUniversity Hospitals Ahuja Medical Center11-10-2025 Telephone encounter Note* Telephone Encounter - Anjana Davalos RN - 10/05/2025 2:39 PM EST Left message for patient to send in blood sugar logs prior to video visit toady in [facility] at 3 PM. Also, Instructed patient to contact [facility] if unable to keep appointment today at [facility], then to call at [phone] option 1 to reschedule. [facility]11-05-2025 History of Present illness Narrative* Radha Rahman [...] to check FSBS. Blood Glucose Monitoring Suppl (D-Regalamos Glucometer) w/Device kit 1 kit, Does not [...] John San infection GDM (gestational diabetes mellitus) ([facility]) Headache History of menstrual cramps ([facility]) Varicella zoster Visual impairment HISTORY PAST MEDICAL HISTORY SOCIAL HISTORY Past Medical History: Diagnosis Date Amenorrhea d/t oral contraceptive pills Endometriosis John San infection GDM (gestational diabetes mellitus) ([facility]) Headache History of menstrual cramps severe Hypertension ([facility]) x1 Varicella zoster unsure Visual impairment [...] Procedure Laterality Date APPENDECTOMY 05/2016 at [facility] 12/2022 retained [...] nursing note reviewed. Exam conducted with a electronics engineering manager present. Vitals: Estimated body mass index is 30.36 kg/m as calculated from the following: Height as of 07/30/25: 5' 2 . Weight as of this encounter: 166 lb. BP: 140/82 Patient's last menstrual period was 02/21/2025. Assessment/Plan ICD-10-CM 1. Third trimester ([facility]) Z34.93 POCT urinalysis dipstick manually resulted 2. 31 weeks gestation of ([facility]) Z3A.31 3. Pre-eclampsia in third trimester ([facility]) O14.93 Return OB: Patient presents today for [...] Nathan Pop DO documented in this encounterSamaritan HospitalXgkktmafwm78-21-6660 Miscellaneous Notes* Telephone Encounter - Cha Harris RN - 09/28/2025 5:16 PM EST Called pt to discuss her insulin changes and received voicemail. Left her a message that Chivo ryan reviewed her blood sugars and would like her to increase her glargine to 23 units in the evening.Asked her to please call back to verify she got this new insulin change for this week. documented in this encounterUniversity Hospitals Ahuja Medical Center11-03-2025 Telephone encounter Note* Telephone Encounter - Cha Harris RN - 09/28/2025 5:16 PM EST Called pt to discuss her insulin changes and received voicemail. Left her a message that Chivo ryan reviewed her blood sugars and would like her to increase her glargine to 23 units in the evening.Asked her to please call back to verify she got this new insulin change for this week. [facility]10-27-2025 Miscellaneous Notes* Telephone Encounter - SILKE Baker - 09/21/2025 4:40 PM EDT Called regarding blood sugar logs from 09/14/25-09/20/25. Chivo Springer PA-C reviewed your blood sugars and would like you to increase your Glargine in the evening from 17 units to 20 units, no change to your morning dose of 5 units. You had two elevated blood sugars after your evening snack and Chivo wondered what you had. Juhi says she most likely had some candy, suggested if she have a sweet that it might work better earlier in the day. Continue to send in blood sugar logs weekly. documented in this [facility]10-27-2025 Telephone encounter Note* Telephone Encounter - SILKE Baker - 09/21/2025 4:40 PM EDT Called regarding blood sugar logs from 09/14/25-09/20/25. Chivo Springer PA-C reviewed your blood sugars and would like you to increase your Glargine in the evening from 17 units to 20 units, no change to your morning dose of 5 units. You had two elevated blood sugars after your evening snack and Chivo wondered what you had. Juhi says she most likely had some candy, suggested if she have a sweet that it might work better earlier in the day. Continue to send in blood sugar logs weekly. [facility] PrintLess Plans Ysnfph77-20-0405 History of Present illness Narrative* Chivo Springer PA-C - 09/21/2025 12:28 PM EDT Insulin dose increased due to elevated fastings. Chivo Springer PA-C 09/21/25 1229 documented in this encounterUniversity Hospitals Ahuja Medical Center10-22-2025 Miscellaneous Notes* Telephone Encounter - Cha Harris RN - 09/16/2025 5:47 PM EDT Called pt to discuss her blood sugars and pt let me know that she was testing per meals.Chivo springer reviewed her blood sugars and would santi [...] blood sugars next week. documented in this encounterUniversity Hospitals Ahuja Medical Center10-22-2025 Telephone encounter Note* Telephone Encounter - Cha Harris RN - 09/16/2025 5:47 PM EDT Called pt to discuss her blood sugars and pt let me know that she was testing per meals.Chivo springer reviewed her blood sugars and would santi [...] send in new blood sugars next week. [facility]10-22-2025 History of Present illness Narrative* [...] John San infection GDM (gestational diabetes mellitus) ([facility]) Headache History of menstrual cramps ([facility]) Varicella zoster Visual impairment HISTORY PAST MEDICAL HISTORY SOCIAL HISTORY Past Medical History: Diagnosis Date Amenorrhea d/t oral contraceptive pills Endometriosis John San infection GDM (gestational diabetes mellitus) ([facility]) Headache History of menstrual cramps severe Hypertension ([facility]) x1 Varicella [...] Procedure Laterality Date APPENDECTOMY 05/2016 at [facility] 12/2022 retained [...] nursing note reviewed. Exam conducted with a electronics engineering manager present. Vitals: Estimated body mass index is 29.78 kg/m as calculated from the following: Height as of 25: 5' 2 . Weight as of this encounter: 162 lb 12.8 oz. BP: 120/80 Patient's last menstrual period was 02/21/2025. Assessment/Plan ICD-10-CM 1. 29 weeks gestation of ([facility]) Z3A.29 POCT urinalysis dipstick manually resulted 2. Third trimester ([facility]) Z34.93 POCT urinalysis dipstick manually resulted 3. Hypertension affecting , antepartum ([facility]) O16.9 4. Gestational diabetes mellitus (GDM), antepartum, gestational diabetes method of control unspecified ([facility]) O24.419 Return OB: Patient presents today [...] and continues to report glucose log to [facility]. Follow up Ultrasound in 4 weeks. Orders Placed This Encounter Procedures POCT urinalysis dipstick manually resulted Follow Up: Patient is to return to office in 2 week for routine OB appointment. Documented by Steph Keane NP on behalf of: Nathan Pop DO documented in this encounterSamaritan HospitalDpesnqjlri18-27-5917 History of Present illness Narrative* Madhuri Monroy MD - 09/10/2025 11:00 AM EDT Video Visit via Real-time Synchronous Audiovisual Provider Location: [facility]- MEDICINE [address] [place] [address], [address] [place] [address] Patient Location: Other [place] [facility] office Patient Location Mapping Analyst: None Video Visit Consent Statement: I discussed [...] that there are some limitations compared to rymx-ip-itik evaluations. We elected to proceed. REASON FOR [...] and the other consultants, we search on [employer] and all the available care everywhere epic I did review all the imaging studies of the patient available on EMR, ordered by the primary care physician and the other regional sales consultant HABITS: Patient activity no restrictions, [...] weeks . - follow-up survey with the M office visits scheduled. - continue serial growth [...] patient is in complete care of her corporate real estate specialist. Patient does have ultrasound video visit scheduled [...] the provider today? none documented in this encounterUniversity Hospitals Ahuja Medical Center10-10-2025 History of Present illness Narrative* [...] Yes Have you been seen here at [facility] in a previous ? No Recent ER visits or hospitalizations? 09/03/25 [place] to r/o preeclampsia. Patient states labs WNL Bring blood sugar log or meter with you today? (Please bring them with you for every visit at [facility]) Yes Flu vaccine (Sep-January)? N/A Any [...] and the other consultants, we search on [employer] and all the available care everywhere epic I did review all the imaging studies of the patient available on EMR, ordered by the primary care physician and the other regional sales consultant HABITS: Patient activity no restrictions, [...] checking blood glucose and remote evaluation through [facility] office until delivery. 5. Discontinue blood [...] patient is in complete care of her corporate real estate specialist. Patient does have ultrasound video visit scheduled [...] with questions or concerns. documented in this encounterOur Lady of Mercy Hospital - AndersonProperty Moose Qnrrli53-22-8966 History of Present illness Narrative* Steph Keane [...] meal for a total of 4times daily. ebxodclgmy-agxwrmw-ljxswvqh (Fiorinal) 50-325-40 MG capsule 1 capsule, Oral, [...] San infection Headache History of menstrual cramps ([facility]) Varicella zoster Visual impairment HISTORY PAST MEDICAL HISTORY SOCIAL HISTORY Past Medical History: Diagnosis Date Amenorrhea d/t oral contraceptive pills Endometriosis John San infection Headache History of menstrual cramps severe Hypertension ([facility]) x1 Varicella [...] Procedure Laterality Date APPENDECTOMY 05/2016 at [facility] 12/2022 retained [...] nursing note reviewed. Exam conducted with a electronics engineering manager present. Vitals: Estimated body mass index is 29.41 kg/m as calculated from the following: Height as of 25: 5' 2 . Weight as of this encounter: 160 lb 12.8 oz. BP: 170/90 Patient's last menstrual period was 02/21/2025. ASSESSMENT & PLAN ICD-10-CM 1. 27 weeks gestation of ([facility]) Z3A.27 POCT urinalysis dipstick manually resulted 2. Second trimester ([facility]) Z34.92 Documented by Steph Keane NP on behalf of: Steph Keane NP documented in this encounterSamaritan HospitalJwmpcldctp70-32-2996 Miscellaneous Notes* Telephone Encounter - Cha Harris [...] to make that appt. documented in this encounterUniversity Hospitals Ahuja Medical Center10-07-2025 Telephone encounter Note* Telephone Encounter [...] [facility]. [facility] PrintLess Plans Ayollv68-81-0931 History of Present illness Narrative* Steph Keane [...] to check FSBS. Blood Glucose Monitoring Suppl (Re-[employer]-Regalamos Glucometer) w/Device kit 1 kit, Does not [...] San infection Headache History of menstrual cramps ([facility]) Varicella zoster Visual impairment HISTORY PAST MEDICAL HISTORY SOCIAL HISTORY Past Medical History: Diagnosis Date Amenorrhea d/t oral contraceptive pills Endometriosis Jhon San infection Headache History of menstrual cramps [...] Procedure Laterality Date APPENDECTOMY 05/2016 at [facility] 12/2022 retained [...] nursing note reviewed. Exam conducted with a electronics engineering manager present. Vitals: Estimated body mass index is 29.23 kg/m as calculated from the following: Height as of 07/30/25: 5' 2 . Weight as of this encounter: 159 lb 12.8 oz. BP: (!) 158/92 Patient's last menstrual period was 02/21/2025. ASSESSMENT & PLAN ICD-10-CM 1. 26 weeks gestation of ([facility]) Z3A.26 POCT urinalysis dipstick manually resulted 2. Second trimester ([facility]) Z34.92 Return OB: Patient presents today [...] labs and have her evaluated today at [facility]. I discussed with OB today and they are aware that patient is coming to be ev aluated. Orders Placed This Encounter Procedures POCT urinalysis dipstick manually resulted Follow Up: Patient is to return to office in 2 week for routine OB appointment. Documented by Steph Keane NP on behalf of: Steph Keane NP documented in this encounterSamaritan [id number] Group counseling note* Group Note - Kerline [...] Face to face time was 80 minutes. [employer] Work Phone: [phone] Miscellaneous Notes* Group Note - Kerline Augustin [...] time was 80 minutes. documented in this encounterOur Lady of [facility] - [facility]Medical [facility] HospitalHngmmf54-77-0787 History of Present illness Narrative* Steph Keane [...] San infection Headache History of menstrual cramps ([facility]) Varicella zoster Visual impairment HISTORY PAST [...] Procedure Laterality Date APPENDECTOMY 05/2016 at [facility] 12/2022 retained [...] nursing note reviewed. Exam conducted with a electronics engineering manager present. Vitals: Estimated body mass index is 27.82 kg/m as calculated from the following: Height as of 07/30/25: 5' 2 . Weight as of this encounter: 152 lb 1.9 oz. BP: 138/82 Patient's last menstrual period was 02/21/2025. ASSESSMENT & PLAN ICD-10-CM 1. 24 weeks gestation of ([facility]) Z3A.24 POCT urinalysis dipstick manually resulted 2. Second trimester ([facility]) Z34.92 POCT [...] on Labetalol 100mg BID. Will refer to [facility] for evaluation. Patient deniesany Headache or blurred vision. Documented by Steph Keane NP on behalf of: Nathan Pop DO documented in this encounterSamaritan [id number] History of Present illness Narrative* Eliceo Beltran [...] infection Headache History of menstrual cramps Hypertension ([facility]) Varicella zoster Visual impairment Objective ?Quick [...] Lipid panel; Future documented in this encounterSamaritan [id number] History of Present illness Narrative* Christine Ravi [...] Procedure Laterality Date APPENDECTOMY 05/2016 at [facility] 12/2022 retained [...] nursing note reviewed. Exam conducted with a electronics engineering manager present. Vitals: Estimated body mass index is 26.48 kg/m as calculated from the following: Height as of 12/30/24: 5' 2 . Weight as of this encounter: 144 lb 12.8 oz. BP: 120/80 Patient's last menstrual period was 02/21/2025. ASSESSMENT & PLAN ICD-10-CM 1. 20 weeks gestation of ([facility]) Z3A.20 POCT urinalysis dipstick manually resulted 2. Second trimester ([facility]) Z34.92 POCT urinalysis dipstick manually resulted [...] Nathan Pop DO documented in this encounterSamaritan HospitalJwkhixykmp14-62-0608 History of Present illness Narrative* Steph Keane [...] San infection Headache History of menstrual cramps ([facility]) Varicella zoster Visual impairment HISTORY PAST [...] Procedure Laterality Date APPENDECTOMY 05/2016 at [facility] 12/2022 retained [...] nursing note reviewed. Exam conducted with a electronics engineering manager present. Vitals: Estimated body mass index is 26.73 kg/m as calculated from the following: Height as of 12/30/24: 5' 2 . Weight as of this encounter: 146 lb 1.9 oz. BP: 118/74 Patient's last menstrual period was 02/21/2025. ASSESSMENT & PLAN (Z34.92) Second trimester ([facility]) Plan: POCT urinalysis dipstick manually resulted, Alpha fetoprotein, maternal, Alpha fetoprotein, maternal (Z3A.17) 17 weeks gestation of ([facility]) Plan: POCT urinalysis dipstick manually resulted, Alpha fetoprotein, maternal, Alpha fetoprotein, maternal (Z36.89) Screening, , for anatomic survey ([facility]) Plan: US OB 14+ weeks anatomy [...] Nathan Pop DO documented in this encounterSamaritan [id number] History of Present illness Narrative* Steph Keane [...] San infection Headache History of menstrual cramps ([facility]) Varicella zoster Visual impairment HISTORY PAST [...] Procedure Laterality Date APPENDECTOMY 05/2016 at [facility] 12/2022 retained [...] nursing note reviewed. Exam conducted with a electronics engineering manager present. Vitals: Estimated body mass index is 25.24 kg/m as calculated from the following: Height as of 12/30/24: 5' 2 . Weight as of this encounter: 138 lb. BP: 122/80 Patient's last menstrual period was 02/21/2025. ASSESSMENT & PLAN ICD-10-CM 1. Second trimester ([facility]) Z34.92 POCT urinalysis dipstick manually resulted 2. 13 weeks gestation of ([facility]) Z3A.13 Return OB: Patient presents today [...] Nathan Pop DO documented in this encounterSamaritan HospitalYmhkaacjgi25-57-1519 History of Present illness Narrative* Hina Go [...] Dysmenorrhea 03/29/2023 Endometriosis 03/29/2023 Gastroparesis 03/29/2023 Hypertension ([facility]) 03/29/2023 Intractable migraine without aura and with status migrainosus ([facility]) 03/29/2023 Migraines ([facility]) 03/29/2023 Chronic pelvic pain in female 03/29/2023 Pain in female genitalia on intercourse 03/29/2023 Pain on swallowing 03/29/2023 Panic disorder ([facility]) 03/29/2023 Patellofemoral disorders, left knee 03/29/2023 Patellofemoral disorders, right knee 03/29/2023 Posterior calcaneal exostosis 03/29/2023 Scapular dyskinesis 03/29/2023 Scoliosis 03/29/2023 Seasonal allergic rhinitis due to pollen 03/29/2023 Tachycardia, paroxysmal ([facility]) 03/29/2023 [...] Procedure Laterality Date APPENDECTOMY 05/2016 at [facility] 12/2022 retained [...] or undercooked meat, and stay away from [facility]. Patient has also been advised to [...] Hina Go LPN documented in this encounterSamaritan HospitalDmtmbcgkxg77-55-5376 History of Present illness Narrative* Candis Yanes, LOOP CUTTER - 01/19/2025 2:50 PM EST Reason for Appointment: Patient ID: Juhi Gama is a 29 y.o. female who presents for Painful [place] Patient presents today for Consult appointment. MEDICATIONS Current Outpatient Medications Medication Instructions einoztlzrp-veiqfnrmsxszz-cgiszjso 50-325-40 MG tablet 1 tablet, Oral, Every 6 hours PRN meloxicam (MOBIC) 15 mg, Oral, Daily metoprolol succinate XL (Toprol-XL) 25 MG 24 hr tablet Take 1 tablet by mouth daily ALLERGIES No Known Allergies PROBLEMS Active Ambulatory Problems Diagnosis Date Noted Acquired equinus deformity of foot 03/29/2023 Displacement of cervical intervertebral disc without myelopathy 03/29/2023 Dysmenorrhea 03/29/2023 Endometriosis 03/29/2023 Gastroparesis 03/29/2023 Hypertension ([facility]) 03/29/2023 Intractable migraine without aura and with status migrainosus ([facility]) 03/29/2023 Migraines ([facility]) 03/29/2023 Chronic pelvic pain in female 03/29/2023 Pain in female genitalia on intercourse 03/29/2023 Pain on swallowing 03/29/2023 Panic disorder ([facility]) 03/29/2023 Patellofemoral disorders, left knee 03/29/2023 [...] Procedure Laterality Date APPENDECTOMY 05/2016 at [facility] 12/2022 retained [...] nursing note reviewed. Exam conducted with a electronics engineering manager present. Vitals: Estimated body mass index [...] patient and patient given direct extension to [employer]er for any questions/concerns pertaining to fertility. Documented by Candis Yanes LPN on behalf of: Nathan Pop DO documented in this encounterSamaritan [id number] History of Present illness Narrative* Eliceo Beltran [...] Procedure Laterality Date APPENDECTOMY 05/2016 at [facility] 12/2022 retained [...] min Stress: No Stress Concern Present (12/29/2024) [place] [employer] - Occupational Stress Questionnaire Feeling of Stress : Only a little Social Connections: Unknown (12/29/2024) Social Connection and Isolation Panel [NHANES] Frequency of Communication with Friends and Family: More than three times a week Frequency of Social Gatherings with Friends and Family: Once a week Attends Scientology Services: Patient declined Active Member of Clubs [...] with the patient today. Current Outpatient Medications: ozdcwixdsk-dojsjykoexkug-yzxyvubp 50-325-40 MG tablet, Take 1 tablet by mouth every 6 (six) hours if needed for headaches, Disp: 20 tablet, Rfl: 0 desogestrel-ethinyl estradiol (Apri) 0.15-30 MG-MCG tablet, Take 1 tablet by mouth Daily, Disp: 21 tablet, Rfl: 12 metoprolol succinate XL (Toprol-XL) 25 MG 24 hr tablet, Take 1 tablet by mouth daily, Disp: 90 tablet, Rfl: 1 documented in this encounterSamaritan HospitalXkobzyuxom08-62-1525 History of Present illness Narrative* Virgen Steen LPN - 08/18/2024 11:00 AM EDT Reason for Appointment: Patient ID: Juhi Cope is a 29 y.o. female who presents for Well Women Visit Patient presents today for Annual Exam. MEDICATIONS Current Outpatient Medications Medication Instructions duqkkdduks-kfkaizkmsjlxb-fjqydlrw 50-325-40 MG tablet 1 tablet, Oral, Every [...] 03/29/2023 Pain on swallowing 03/29/2023 Panic disorder ([facility]) 03/29/2023 Patellofemoral disorders, left knee 03/29/2023 [...] Headache History of menstrual cramps severe Hypertension ([facility]) x1 Varicella [...] Procedure Laterality Date APPENDECTOMY 05/2016 at [facility] 12/2022 retained [...] nursing note reviewed. Exam conducted with a electronics engineering manager present. Vitals: Estimated body mass index [...] Zenobia Gutierrez PA-C documented in this encounterSamaritan HospitalCwxprilxbo86-81-3113 History of Present illness Narrative* Christine Ravi LPN - 07/22/2024 9:50 AM EDT Reason for Appointment: Patient ID: Juhi Cope is a 29 y.o. female who presents for Dysmenorrhea Patient presents today for Acute Visit. MEDICATIONS Current Outpatient Medications Medication Instructions xroccpawas-oeyukgfrtqcqr-qfdsfqmh 50-325-40 MG tablet 1 tablet, Oral, Every [...] Procedure Laterality Date APPENDECTOMY 05/2016 at [facility] 12/2022 retained [...] nursing note reviewed. Exam conducted with a electronics engineering manager present. Vitals: Estimated body mass index [...] Nathan Pop DO documented in this encounterSamaritan HospitalCjvlrvmbub94-84-6130 Telephone encounter Note* Telephone Encounter - Candis Garces - 04/29/2024 8:23 AM EDT Received message from admin Anna Webb to cancel surgery and all appts as pt had services elsewhere [facility]06-04-2024 Miscellaneous Notes* Telephone Encounter - Candis Garces - 04/29/2024 8:23 AM EDT Received message from admin Anna Webb to cancel surgery and all appts as pt had services elsewhere documented in this encounterOhiohealth [facility]05-31-2024 Telephone encounter Note * Telephone Encounter - Anna De Leon - 04/25/2024 1:10 PM EDT Pt got in sooner for surgery with her local digital printer. Please cancel surgery and all pre and post op appts. [facility]05-31-2024 Miscellaneous Notes* Telephone Encounter - Anna De Leon - 04/25/2024 1:10 PM EDT Pt got in sooner for surgery with her local digital printer. Please cancel surgery and all pre and post op appts. documented in this encounterOhiohealth [facility]02-15-2024 History of Present illness Narrative* Nathan Pop, - 01/10/2024 10:30 AM EST Reason for [...] Procedure Laterality Date APPENDECTOMY 05/2016 at [facility] 12/2022 retained [...] nursing note reviewed. Exam conducted with a electronics engineering manager present. Vitals: Estimated body mass index [...] Nathan Pop DO on behalf of: Nathan Kiesha, DO documented in this encounterSamaritan HospitalPwgimsjwlt36-31-8274 Miscellaneous Notes* Telephone Encounter - Pippa Simon [...] mg tablet Class: Normal Route: ORAL Order: [id number] E-Prescribing Status: Receipt confirmed by pharmacy (05/17/2023 [...] that may recur and often requires a care home treatment plan. Once endometriosis is identified, there [...] Center 05/20/2024 10:00 AM [facility] P[facility] 06/23/2024 10:30 AM Charlene Rodriguez DO [facility] Appointment scheduled: As listed above Action taken: Refill request routed to clinician Pippa Simon RN January 03, 2024 4:29 PM * Telephone Encounter - Alena Tracy - 01/02/2024 3:52 PM EST Patient: Juhi Cope : 1995 Provider: Charlene Rodriguez DO Caller Phone #: [phone] (home) [phone] (cell) Reason for call: b/c refill Message routed to nurse triage Date of next visit: MEGAN: 12/10/2023 documented in this encounterOhiohealth Grove City [facility]01-15-2024 NoteHNO ID: [id number] Author: CHARLENE RODRIGUEZ DO Service: ? 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 Where to find more information [place] [employer]: www.heart.org Contact a health care [...] provider. Document Revised: 07/27/2022 Document Reviewed: 07/27/2022 [employer] Patient Education 2022 [employer]. 09/12/2023 18:18:13 Hypertension, Adult, Wdpp-lj-Muuq Hypertension, Adult Hypertension is another name for [...] doctor. Keep all follow-up visits. Medicines Take muii-nbt-pfwthgi and prescription medicines only as told by [...] provider. Document Revised: 08/31/2022 Document Reviewed: 08/31/2022 [employer] Patient Education 2022 [employer]. 09/12/2023 18:18:13 General Headache Without Cause, Wnap-uy-Hhzc General Headache Without Cause A headache is pain or discomfort you feel around the head or neck area. There are many causes and types of headaches. In some cases, the cause may not be found. Follow these instructions at home: Watch your condition for any changes. Let your doctor know about them. Take these steps to help with your condition: Managing pain Take koll-tle-kzpksnu and prescription medicines only as told by [...] provider. Document Revised: 04/12/2022 Document Reviewed: 04/12/2022 [employer] Patient Education 2022 [employer]. Follow Up Care 09/12/2023 17:21:57 With:DENNY RODRÍGUEZ Address: [address] [place] [address] Business (1) When:09/15/2023 18:03:37 Comments:Follow-up with your primary care provider in 3 to 5 days. If symptoms worsen, do not improve, or new symptoms arise please report back to emergency department for further evaluation. [facility]10-18-2023 Evaluation + Plan noteExtracted from: Title:ED NoteAuthor:Eric CLAYTON, Nikita Justin.Date:09/12/23 Elevated blood pressure read ing (R03.0: Elevated [...] date 09/12/23 18:02:00 EDT, 09/12/23 18:02:00 EDT [facility]10-16-2023 Instructions* Patient Instructions* Jihan Downs APRN.CNP - 09/10/2023 9:52 AM EDT Plan: Trial baclofen suppositories - can switch to pill vaginally if suppositories are not affordable Consider Pelvic floor physical therapy - can find local provider [email or web address] Consider going back to see Dr Kuldip Downs APRN.CNP documented in this encounterOhiohealth Grove City [facility]10-05-2023 NoteHNO ID: [id number] Author: Charlene Rodriguez DO Service: ? Author Type: Physician Type: Progress Notes Filed: 08/30/2023 11:15 AM Note Text: Tramadol rx sent to pharmacy.[place]10-05-2023 History of Present illness Narrative* Charlene Rodriguez DO - 08/30/2023 11:13 AM EDT Tramadol rx sent to pharmacy. documented in this encounterOhiohealth [facility] City [facility]10-05-2023 Miscellaneous Notes* Telephone Encounter - Chelsie Dueñas RN - 08/30/2023 10:50 AM EDT Last office visit: 08/24/2023 Assessment and Plan No diagnosis found. Trial baclofen suppositories Will send list of PTs Consider going back to K[facility]ip SIGNATURE: Jihan Downs APRN.POULTRY KILLER Office visit with Dr. Rodriguez 07/16/2023 IMPRESSION: [...] Charlene Rodriguez DO documented in this encounterOhiohealth Grove City [facility]09-29-2023 NoteHNO ID: [id number] Author: Jihan Downs APRN.ANA LAURA Service: ? Author Type: Nurse Practitioner Type: Progress Notes Filed: 09/10/2023 9:53 AM Note Text: [facility] [place] Department of Benign Gynecology [facility] PATIENT NAME: Juhi Cope DATE: 08/24/2023 Patient Name and verified: Yes Patient Location: [place] This Virtual Visit was completed using My Chart Zoom platform. I have communicated my name and active licensure. The patient's identity and physical location were verified at the time of this visit. Either the patient or their legal outreach representative has been informed of the risks [...] appointment yet. 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 [facility] Department of Benign Gynecology [facility] PATIENT NAME: Juhi Cope DATE: 08/24/2023 Patient Name and verified: Yes Patient Location: [place] This Virtual Visit was completed using My Chart Zoom platform. I have communicated my name and active licensure. The patient's identity and physical location wereverified at the time of this visit. Either the patient or their legal outreach representative has been informed of the risks [...] appointment yet. 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 Please call [phone] Message routed to nurse triage Date of next visit: documented in this encounterOhiohealth Grove City [facility] Hospital09-07-2023 Miscellaneous Notes* Telephone Encounter - Candis Suárez RN - 08/02/2023 11:29 AM EDT PA for orilissa completed via Cover You[employer]. Juhi Cope (Morales: [id number]) - [id number] Orilissa 150MG tablets Status: Sent To Plan [...] Please advise. Thanks. documented in this encounterOhiohealth Grove City [facility] Hospital08-21-2023 NoteHNO ID: [id number] Author: Charlene Rodriguez DO Service: ? 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 Author Type: Cardiac Rehabilitation Specialist Type: Progress Notes Filed: 06/12/2023 4:32 PM [...] BY: RT Claudia(Bryant) June 12, 2023 4:32 PMCTuscarawas [facility]07-18-2023 NoteHNO ID: [id number] Author: Boo Singh RN Service: Nursing Author [...] Cope DATE: June 12, 2023 TIME: 1:43 [facility]06-22-2023 NoteHNO ID: [id number] Author: Charlene Rodriguez, DO Service: ? 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 Charlene Rodriguez DO Tt: 20 minutesCent[place]06-22-2023 History of Present illness Narrative* Charlene Rodriguez DO - 05/17/2023 1:05 PM EDT Images from the original note were not included. 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 Biggest complaint is cramping. Has had 3 periods of bleeding recently - 04/22/2023 LMP, last a few days, 05/04-05/10 bleeding again 05/11/2023 started again today. Takes aygestin 5mg daily. She did not tack picker flexeril. Encourage to tack picker the flexeril as this will help with the cramping. Reviewed red flag bleeding symptoms that require trip to ER (soaking greater than one overnight padper hour, chest pain, shortness of breath, fatigue, palpitations).. Advised keep appt. Gives verbal understanding. Appointments for Next 60 Days Date Time Provider Location Dept Phone 05/17/2023 1:00 PM CHARLENE RODRIGUEZ [facility] Stro [phone] Candis Suárez RN * Telephone Encounter - [place]awana Nair [facility] 05/11/2023 1:19 PM EDT Reason for call: other - Vaginal bleeding Provider name: Dr Rodriguez Additional comments: patient having more vaginal bleeding and concerned she is getting worse. Recommendation: routed to nurse triage pool Electronically signed by Tawana Nair [facility] 05/11/2023 1:21 PM EDT documented in this encounterOhiohealth [facility]06-[facility]-2023 Instructions* Patient Instructions* Jihan Downs APRN.ANA LAURA - 05/01/2023 11:47 AM EDT Plan Pelvic floor physical therapy - or can go locally [employer]Verismo Networks[employer] Trial flexeril at bedtime Can consider Baclofen [...] pain society ([email or web address]) documented in this encounterOhiohealth Grove City [facility]06-06-2023 History of Present illness Narrative* Jihan Downs APRN.ANA LAURA - 05/01/2023 10:30 AM EDT Juhi Cope is a 28 year old female who presents for problem visit for pain HPI: Pain is week before period and week of period. Worse on her period for every day she's bleeding Urinary - No symptoms GI - Always constipated. 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 Author Type: Nurse Practitioner Type: Progress Notes Filed: 05/09/2023 11:46 AM Note Text: Juhi Cope is a 28 year old female who presents for problem visit for pain HPI: Pain is week before period and week of period. Worse on her period for every day she's bleeding Urinary - No symptoms GI - Always constipated. 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 History Comments: Sexual Activity: Never; No [...] physical therapy - or can go locally [employer] Trial flexeril at bedtime Can consider Baclofen [...] management Medical Decision Making Level: 4 - [place] Miscellaneous Notes* Telephone Encounter - Marilee Valdez [...] Lucila Foss RN documented in this encounterOhiohealth [facility]03-08-2023 Hospital Discharge instructions Patient Education 01/31/2023 [...] told by your health care provider. Take rfgi-mmf-bshyoem and prescription medicines only as told by [...] 01/03/2007 Document Revised: 10/25/2018 Document Reviewed: 01/25/2018 [employer] Patient Education 2020 [employer]. Follow Up Care 01/31/2023 13:43:01 With:Denny Meza Address:Unknown When:02/03/2023 18:59:31 Comments:Follow-up for evaluation of hypertension in context of known preeclampsia in the period With:DENNY RODRÍGUEZ [facility] [place] [address]- Business (1) When:Within 3 Day(s) [facility]03-08-2023 Evaluation + Plan noteExtracted from: Title:ED NoteAuthor:Mayur Mabry PA-C CDate:01/31/23 Flank pain (R10.9: Unspecifi ed abdominal pain) Headache (R51.9: Headache, unspecified) Orders: CTA Chest Hepatic Function Panel [facility]02-04-2023 Hospital Discharge instructions Patient Education 12/30/2022 13:59:51 WATER VALVE REPAIRER - Post D&C, Hysteroscopy, LEEP or Essure/Laparoscopy [...] Instructions - FT (Custom) (Custom) 12/30/2022 13:55:16 WATER VALVE REPAIRER - Post D&C, Hysteroscopy, LEEP or Essure/Laparoscopy [...] With:Denny Meza Address: [address], [place] [address] [place] [address]- Business (1) When: Unknown Comments:follow up in 1-2 weeks With:DENNY RODRÍGUEZ Address: [address] [place] [place] [address]- Business (1) When:01/02/2023 09:21:18 [facility]02-04-2023 Evaluation + Plan noteExtracted from: Title:ANES [...] from:Title:ANES Pre-operative NoteAuthor:Kenneth Agustin MDDate: 12/30/22 Plan [place] [employer] of Anesthesiologists (ASA) physical status classification: Class II, E. Anesthetic Preoperative Plan: Anesthesia General. Extracted from:Title:ED NoteAuthor:Lara Murphy Edin HDate:12/30/22 1. Retained products of conc eption with hemorrhage (O72.2: Delayed and secondary hemorrhage) Orders: ABO/Rh ABO/Rh History Check Antibody Screen Automated Diff Basic Metabolic Panel Blood Bank ID# CBC w/ Auto Diff eGFR Extra SST Tube PT & PTT Saline Lock Insert UA With Cult Reflex US Pelvis Non-OB Complete [facility]01-10-2023 History of Present illness Narrative* Tory [...] Ross MD - 12/05/2022 3:19 PM EST [facility]: This patient was seen in the [facility] by the resident. I reviewed and agree with the care provided by the resident during or immediately following the visit including the patient's medical history, the resident's finding in the physical exam, patient's diagnosis and treatment plan. documented in this [facility]01-07-2023 NoteDepartment of Obstetrics and Gynecology Delivery Discharge Summary Admission on 11/28/2022 12:24 AM Hospital course: Juhi Cope at 35w1d admitted as a transfer [facility] She was started on Magnesium there [...] Information for the patient's : Francie Cope [[id number]] female 2425 g (5 lb 5.5 oz) Apgars: Information for the patient's : Francie Cope [[id number]] : Infant: Girl Blood Type/Rh: O Antibody [...] Your Medications These medications were sent to [facility] [address] [place], [place] [id number] Hours: Sunday to Sunday 10 am to [...] [] Order the blood pressure log through [employer] [x] Place an office visit or telephone [...] her physician if any of these occur.[facility]01-07-2023 History of Present illness Narrative* Anna [...] with more than 50% of the total bcsd-zy-swks time of the visit in counseling/coordination of [...] Instructed to place chauhan catheter. * Alejandra Arocs RN - 11/30/2022 4:25 PM EST Secure message sent to Dr. Gamez stating patient is having difficulty voiding, patient's perineum is very swollen, and that patient was straight cathed for 950ml at noon. Received order for benadryl to help with swelling. * Suad Samuels - 11/30/2022 12:26 PM EST Nutrition rescreen completed. Chart reviewed. Patient to be monitored and followed by the diet digital technician. CRISS Oshea * Alejandra Arcos RN [...] and reassuring. CCM. Cx:/-3 FHT: Cat 1 [place]:q3-4 min A/P: 1. IOL-PreEwSF. FHT 130 baseline, with moderate variability, Accelerations present Yes, and rare late deceleration . Cervical exam unchanged. Cytotec x4 placed at this time. Patient intermittently feeling contractions. BP mild range. Cx: 1-/-3 FHP: defer FHT: Cat I [place]: a3-4min A/P: 1. IOL-PreEwSF: FHT Category I, with modertae variability, accelerations present, and decelerations absent. BP NT largely throughout today, most recently mild range. UOP has not been documented today, day nurse did not document. Discussed with night nurse. Magnesium running for seizure prophylaxis. 2nd dose of BMZ received. Dr Keita updated. PRINCE DO JOSE ANTONIO 11/28/2022 7:43 PM Cx: unchanged FHP: defer FHT: Cat I [place]: q4min A/P: 1. IOL-PreEwSF: FHT Category I, [...] this time. Plan for SVE after. PRINCE DO JOSE ANTONIO 11/29/2022 6:17 AM Cx:1-2/60/-3 FHT: Cat I [place]:q4-5mins A/P: 1. IOL-PreEwSF: Cat I FHT with [...] per protocol. CCM. Cx:defer FHT: Cat I [place]:q4-6mins A/P: 1. IOL-PreEwSF: Cat I FHT with baseline 120, moderate variability, spontaneous accelerations, and no decelerations. BP normotensive to mild range since last note time. Pitocin @ 2 cc/hr, continue to titrate per protocol. Magnesium sulfate running for seizure prophylaxis, UOP 400 ml over past 4hours. CCM. Cx:defer FHT: Cat I [place]:q4-5mins A/P: 1. IOL-PreEwSF: Cat I FHT with baseline 135, moderate variability, spontaneous accelerations, and no decelerations. BP normotensive to mild range since last note time. Pitocin @ 6 cc/hr, continue to titrate per protocol. Magnesium sulfate running for seizure prophylaxis, UOP 600 ml over past 4hours. Will plan for AROM soon. CCM. Cx:defer FHT: Cat I [place]:irritability A/P: 1. IOL-PreEwSF: Pit @ 8 mu/min. Patient resting comfortably and only irritability tracing on toco. BP most recently mild range. On magnesium sulfate for seizure prophylaxis. UOP adequate. Continue magnesium and continue to titrate pitocin per protocol. Plan for AROM once patient rudi more regularly. Electronically signed by Corntey Velasquez DO 11/29/2022 4:21 PM Cx:470/-3 FHT: Cat 1 [place]:Not tracing A/P: 1. IOL-PreEwSF. FHT 135 baseline, with moderate variability, Accelerations present Yes, and nodecelerations seen . AROM at this time for moderate amount blood tinged fluid. Pitocin at 8cc/hr. Maternal BP mild range. On Magnesium for Seizure prophylaxis. Patient with adequate urinary output. CCM. Cx: defer FHP: defer FHT: Cat II [place]: not tracing well A/P: 1. IOL-PreEwSF: FHT [...] per RN FHP: defer FHT: Cat II [place]: q4min A/P: 1. IOL-PreEwSF: FHT Category II [...] delivery note for details documented in this [facility]01-07-2023 Hospital course Narrative* César Tran DO - 12/02/2022 12:32 PM EST Images from the original note were not included. Department of Obstetrics and Gynecology Delivery Discharge Summary Admission on 11/28/2022 12:24 AM Hospital course: Juhi Cope at 35w1d admitted as a [facility] She was startedon Magnesium there and [...] Information for the patient's : Francie Cope [[id number]] female 2425 g (5 lb 5.5 oz) Apgars: Information for the patient's : Francie Cope [[id number]] : : Girl Blood Type/Rh: O Antibody [...] Your Medications These medications were sent to [facility] [address] [place] [address] Hours: Sunday to Sunday 10 am to [...] [] Order the blood pressure log through [employer] [x] Place an office visit or telephone [...] any of these occur. documented in this [facility]01-06-2023 Note* Care Coordination - Christine Michelle [...] Denies any concerns at this time. [facility] [id number] Note* Care Coordination - Christine Michelle RN [...] Denies any concerns at this time. [facility] [id number] Miscellaneous Notes* Care Coordination - Christine Michelle [...] this pt. Due to: in [facility] Hospital breast pump, supplies kit, [...] to check with LC in [facility] for smaller flange sizes * L&D Delivery Note - Irina Kramer DO - 11/30/2022 4:04 AM EST Images from the original note were not included. Vaginal Delivery Note Department of Obstetrics and Gynecology Patient: Juhi Cope : 1995 Date of delivery: 11/30/2022 Pre-operative Diagnosis: Juhi Mojica0 at 35w1d 1. <37 weeks 2. 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 Bowden; Dr. Kramer Information: Information for the patient's : Francie Cope [[id number]] Information for the patient's : Francie Cope [[id number]] Description: normal Meconium Noted: No Anesthesia: epidural anesthesia Complications: None Application and Delivery: Juhi Sdihu at 35w1d admitted for IOL-PreEwSF. Her labor [...] change. Clotilde Mg RN documented in this [facility]01-06-2023 Obstetrics Note* Note - Ligia Bridges RN - 12/01/2022 9:00 AM EST 22.5mm flanges given to patient. Encouraged her to call for observation of pump session and smallerflanges. Martha in NICU to assist with personal pump. [facility] [id number] Hospital Discharge instructions* Discharge Instructions* Carol Bowden [...] as 8 weeks after delivery. Bleeding may tack picker and then decrease again around 7-10 [...] avoid constipation you may take a mild efdn-ymb-ssuucxy stool softener (such as colace) as recommended [...] positive or a Person Under Investigation (PUI) Dtyvrd-gi-uyrnm transmission of COVID-19 during is unlikely, but after a baby is susceptible to jtkxci-rc-hmhkns spread. After your baby is born, your [...] clean your hands with an alcohol-based hand manager web application that contains at least 60% alcohol. Clean your hands often Wash your hands often with soap and water for at least 20 seconds, especially after blowing your nose, coughing, or sneezing; going to the bathroom; and before eating or preparing food. If soap and water are not readily available, use an alcohol-based hand manager web application with at least 60% alcohol, covering all [...] local or [facility] health department. Persons who are [...] isolation precautions should be made on a diig-cp-ryri basis, in consultation with healthcare providers and stateand local health departments. Information on COVID-19 for [...] respiratory tract signs and symptoms. Ways to [place] with Anxiety & Stress It is normal [...] an illness that was first found in [facility], in October 2019. It has [...] seen in people before. This virus spreads ewpmmw-br-dzpetp through droplets from coughing and sneezing. It [...] water aren't available, use an alcohol-based hand manager web application. Call 911 anytime you think you may [...] of: February 25, 2020 Content Version: 12.4 [employer] Care instructions adapted under license by your healthcare professional. If you have questions about a medical condition or this instruction, always ask your healthcare professional. [employer]wise[employer] Inc[employer] disclaims any warranty or liability for your use of this information. General Recommendations for Routine Cleaning and Disinfection of Households Community members can practice routine cleaning of frequently touched surfaces (for example: tables, doorknobs, light switches, handles, desks, toilets, faucets, sinks) with household flatbed press operator and EPA-registered disinfectants that are appropriate for [...] appropriate. These supplies include tissues, paper towels, flatbed press operator and EPA-registered disinfectants (see list link at [facility] website). If a separate bathroom [...] be used for other purposes. Consult the buffing wheel operator's instructions for cleaning and disinfection products [...] used if appropriate for the surface. Follow buffing wheel operator's instructions for application and proper ventilation. [...] water Products with EPA-approved emerging viral pathogens claimsf iconexternal icon are expected to be effective against COVID-19 based on data for harder to kill viruses. Follow the buffing wheel operator's instructions for all cleaning and disinfection products (e.g., concentration, application method and contact time, etc.). Soft (porous) surfaces such as carpeted floor, rugs, and drapes Remove visible contamination if present and clean with appropriate flatbed press operator indicated for use on these surfaces. After cleaning: Launder items as appropriate in accordance with the buffing wheel operator's instructions. If possible, launder items using [...] items as appropriate in accordance with the buffing wheel operator's instructions. If possible, launder items using the warmest appropriate water setting for the items and dry items completely. Dirty laundry from an ill person can be washed with other people's items. Clean and disinfect clothes hampers according to guidance above for surfaces. If possible, considerplacing a inspector handbag frames that is either disposable (can be thrown away) or can be laundered. [facility] has a list of EPA approved cleaning products on their website - https://www.cdc.gov/coronavirus/ 2019-ncov/community/home/cleaning-disinfection.html https://www.[employer]/Gpaaf-Mxoennbtthv-Gplrgpix-Products-List.pdf Lean Startup Machine with delivery and tack picker services: [employer]: Free tack picker at locations Delivery is $12.95 a month Website - [employer] [place]: Model Making Supervisor $2.95 (1st order is free) Delivery is $14.95 Website - Perk Belkof[employer]: piecer up is free Delivery is $5.95 Website [employer]: piecer up is $4.95 Delivery is $9.95 Website [employer]: piecer up is $4.95 Delivery is $9.95 Website [employer]: Can be ordered for delivery and tack picker with [employer] Website - www.[employer]: Free deliver for first 3 orders of $35 or more Website - [employer] Will deliver from [employer], [employer], [employer], and [employer]. Annual membership is $99 Monthly membership is $14 * Attachments The following attachments cannot be sent through Care Everywhere. * Preeclampsia Discharge Instructions (Maldivian) documented in this [facility]01-05-2023 Obstetrics Note* Note - Sheila Harrell RN - 11/30/2022 10:37 AM EST Swabs given to patient and educated how to use and to bring to [facility] [id number] Obstetrics Note* Note - Sheila Harrell RN - 11/30/2022 10:30 AM EST Breast pump use indicated for this pt. Due to: in [facility] Hospital breast pump, supplies kit, [...] patient to check with in [facility] for smaller flange sizes [facility] [id number] NotePatient: Juhi Cope Procedure Summary Date: 11/29/22 [...] discharged once all PACU criteria has been met.[facility]01-05-2023 NotePatient: Juhi Cope Procedure Summary Date: [...] Allowed opportunity for questions and acknowledgement of understanding.[facility]01-05-2023 Labor and delivery summary note* L&D Delivery Note - Irina Kramer DO - 11/30/2022 4:04 AM EST Images from the original note were not included. Vaginal Delivery Note Department of Obstetrics and Gynecology Patient: Juhi Cope : 1995 Date of delivery: 11/30/2022 Pre-operative Diagnosis: Juhi Sidhu at 35w1d 1. <37 weeks 2. 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 Bowden; Dr. Kramer Information: Information for the patient's : Francie Cope [[id number]] Information for the patient's : Francie Cope [[id number]] Description: normal Meconium Noted: No Anesthesia: epidural [...] as described in the resident note. [facility] [id number] NoteEpidural Block Time Out: 11/29/2022 6:17 PM Patient location during procedure: OB Start time: 11/29/2022 6:18 PM End time: 11/29/2022 6:45 PM Reason for block: labor analgesia Staffing Performed: SHEET ROLLER OPERATOR Resident/SHEET ROLLER OPERATOR: Jimmie Kaur APRN - SHEET ROLLER OPERATOR Preanesthetic Checklist Completed: patient identified, IV checked, [...] tolerated procedure well with no immediate complications[facility] Plan of care note* Care Plan - Clotilde Mg RN - 11/29/2022 7:45 AM EST The patient will continue to make cervical change. Clotilde Mg RN [facility] [id number] NotePatient: Juhi Cope Procedure Information Date: 11/28/22 [...] patient is not NPO Additional Equipment RequestsAsc[facility]. [facility] NoteLabor Progress Note Date: 11/28/2022 Time: [...] and reassuring. CCM. Cx:-3 FHT: Cat 1 [place]:q3-4 min A/P: 1. IOL-PreEwSF. FHT 130 baseline, with moderate variability, Accelerations present Yes, and rare late deceleration . Cervical exam unchanged. Cytotec x4 placed at this time. Patient intermittently feeling contractions. BP mild range. Cx: 1--3 FHP: defer FHT: Cat I [place]: a3-4min A/P: 1. IOL-PreEwSF: FHT Category I, [...] Cx: unchanged FHP: defer FHT: Cat I [place]: q4min A/P: 1. IOL-PreEwSF: FHT Category I, [...] 11/29/2022 6:17 AM Cx:1-2/60/-3 FHT: Cat I [place]:q4-5mins A/P: 1. IOL-PreEwSF: Cat I FHT with baseline 130, moderate variability, spontaneous accelerations, and no decelerations. BP normotensive to low mild range since last note time. 60 ml chauhan bulb placed without difficulty. Will start low dose pitocin. Magnesium sulfate running for seizure prophylaxis, UOP adequate at 900 ml past 4 hours. CCM. Patient in pain from cahuhan bulb, will give IV morphine 4 mg. [...] per protocol. CCM. Cx:defer FHT: Cat I [place]:q4-6mins A/P: 1. IOL-PreEwSF: Cat I FHT with baseline 120, moderate variability, spontaneous accelerations, and no decelerations. BP normotensive to mild range since last note time. Pitocin @ 2 cc/hr, continue to titrate per protocol. Magnesium sulfate running for seizure prophylaxis, UOP 400 ml over past 4 hours. CCM. Cx:defer FHT: Cat I [place]:q4-5mins A/P: 1. IOL-PreEwSF: Cat I FHT with baseline 135, moderate variability, spontaneous accelerations, and no decelerations. BP normotensive to mild range since last note time. Pitocin @ 6 cc/hr, continue to titrate per protocol. Magnesium sulfate running for seizure prophylaxis, UOP 600 ml over past 4 hours. Will plan for AROM soon. CCM. Cx:defer FHT: Cat I [place]:irritability A/P: 1. IOL-PreEwSF: Pit @ 8 mu/min. Patient resting comfortably and only irritability tracing on toco. BP most recently mild range. On magnesium sulfate for seizure prophylaxis. UOP adequate. Continue magnesium and continue to titrate pitocin per protocol. Plan for AROM once patient rudi more regularly. Electronically signed by Cortney Velasquez DO 11/29/2022 4:21 PM Cx:/-3 FHT: Cat 1 [place]:Not tracing A/P: 1. IOL-PreEwSF. FHT 135 baseline, with moderate variability, Accelerations present Yes, and no decelerations seen . AROM at this time for moderate amount blood tinged fluid. Pitocin at 8cc/hr. Maternal BP mild range. On Magnesium for Seizure prophylaxis. Patient with adequate urinary output. CCM. Cx: defer FHP: defer FHT: Cat II [place]: not tracing well A/P: 1. IOL-PreEwSF: FHT Category II for brief period of lates vs early deceleration (more content not included)...[facility]01-03-2023 NoteObstetrical History and Physical CHIEF COMPLAINT: [...] 34w6d Is this patient being delivered between 48d2i-73f4s weeks with an acceptable medical indication (obstetric, maternal, and/or )? NA: Not Applicable: This patient is being delivered outside of the PC-01 range (80y3m-68u7n) for reasons indicated in the medical record. [...] Prophylaxis: Not Indicated (more content not included)...[facility]01-03-2023 History and physical note* Cassie Constantino [...] 34w6d Is this patient being delivered between 79o2g-63t1u weeks with an acceptable medical indication (obstetric, maternal, and/or )? NA: Not Applicable: This patient is being delivered outside of the PC-01 range (26d2l-86y4t) for reasons indicated in the medical record. [...] Cassie Constantino MD 11/28/2022, 12:48 AM [facility] [id number] History and physical note* Cassie Constantino MD [...] 34w6d Is this patient being delivered between 00q1z-97t2f weeks with an acceptable medical indication (obstetric, maternal, and/or )? NA: Not Applicable: This patient is being delivered outside of the PC-01 range ([id number]) for reasons indicated in the medical record. [...] MD 11/28/2022, 12:48 AM documented in this [facility]01-02-2023 Evaluation + Plan note Extracted from:Title:OB High Risk Antepartum Visit *Author:Fredi DORSEY MD Date:11/27/22 Impression and Plan Diagnosis 34 weeks 5 days. Preeclampsia. contractions. Maternal tachycardia.. Course: Worsening, New onset headache may be a signal of worsening symptoms of preeclampsia.. Orders I discussed this case with the maternal- medicine department at [facility] in [facility], Dr. Thea Nieves, she accepted to transfer due to preeclampsia. 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 She is provided with a note for work. Additional diagnosis: Constipation, UTI and [facility]08-19-2022 Hospital Discharge instructions Follow Up Care 07/14/2022 06:07:36 With:Denny Meza Address:Unknown When:07/17/2022 07:24:48 With:DENNY RODRÍGUEZ Address: [address] [place] [place] [address] Business (1) When:Within 3 Day(s) [facility]08-19-2022 Hospital Discharge instructions Follow Up Care 07/14/2022 04:40:16 With:Denny Meza Address: [address], [address] [place] [address]- Business (1) When:07/17/2022 Comments:Appointment has already been scheduledCall Dr if fever>100.5 F, heavy bleedingCall for any problems.Call for severe abdominal painCall physician for heavy vaginal bleedingCall physician if symptoms worsenPlease call if you need to rescheduleReturn for contractions closer, longer, harderReturn ifruptured membranes or vaginal bleeding [facility]05-31-2022 Evaluation + Plan note Diagnostic Tests Pending * Mgzyl-1-Jbmfabdbdda 04/25/22 * NIGEL w/Reflex if POS 04/25/22 * Ceruloplasmin 04/25/22 * HCV Antibody RFX to Quant PCR 04/25/22 * HBV Core Ab 04/25/22 * Hepatitis B Surface Antibody 04/25/22 * Hepatitis B Surface Antigen 04/25/22 * Smooth Muscle Antibody Screen 04/25/22 [facility]05-24-2022 Evaluation note* Encounter Date Diagnosis Assessment Notes Treatment Notes Treatment Clinical Notes March, Elevated liver function tests (I CD-10 - R79.89) LABS INDICATED ABOVE [employer] Other Evaluation note* Diagnosis Pelvic pain in female- Primary Unspecified symptom associated with female genital organs [facility] Diagnosis Chronic pelvic pain in female- Primary Unspecified symptom associated with female genital organs Constipation, unspecified constipation type High-tone pelvic floor dysfunction Other specified disorders of female genital organs Diastasis of rectus abdominis Dysmenorrhea Other specified dyspareunia documented in this [facility]* Diagnosis Endometriosis- Primary Endometriosis, site unspecified Pelvic and perineal pain Unspecified symptom associated with female genital organs documented [facility]* Diagnosis Pelvic pain in female- Primary Unspecified symptom associated with female genital organs documented [facility]* Diagnosis Pelvic pain in female- Primary Unspecified symptom associated with female genital organs documented in this encounter [facility] note* Diagnosis High-tone pelvic floor dysfunction- Primary Other specified disorders of female genital organs Chronic pelvic pain in female Unspecified symptom associated with female genital organs documented in this encounter [facility] note* Diagnosis Pelvic and perineal pain Unspecified symptom associated with female genital organs documented in this encounter [facility] note* Diagnosis Menorrhagia with regular cycle Pelvic pain in female Unspecified symptom associated with female genital organs Uses control [facility] Preeclampsia, severe, third trimester- Primary Preeclampsia, severe, third trimester [facility] Diagnosis Pre-eclampsia, severe, delivered- Primary [facility]* Diagnosis Dysmenorrhea, unspecified documented in this encounter [facility]* Diagnosis Well woman exam with routine gynecological exam Routine gynecological examination [facility] Diagnosis Hypertension, unspecified type (CMS/HCC)- Primary Paroxysmal tachycardia, unspecified (CMS/HCC) Paroxysmal tachycardia, unspecified Chronic right shoulder pain Pain in joint, shoulder region Scapular dyskinesis Lack of coordination [facility] Diagnosis Pain in female genitalia on intercourse Dyspareunia Endometriosis Endometriosis, site unspecified documented in this encounter [facility] HealthcareEvaluation noteNo assessment information availableFisher-Titus [facility] Work Phone: Evaluation note* Diagnosis Missed menses , unspecified gestational age Encounter for supervision of normal first in first trimester documented [facility]* Diagnosis Nonintractable episodic headache, unspecified headache type- Primary Second trimester ([facility]) state, incidental 13 weeks gestation of ([facility]) documented in this encounter [facility]* Diagnosis Sinusitis, unspecified chronicity, unspecified location- Primary Second trimester ([facility]) state, incidental 17 weeks gestation of ([facility]) Screening, , for anatomic survey ([facility]) Encounter for anatomic survey documented [facility]* Diagnosis 20 weeks gestation of ([facility]) Second trimester ([facility]) state, incidental Diabetes mellitus screening Screening for diabetes mellitus documented in this encounter [facility]* Diagnosis Wellness examination- Primary Hypertension, unspecified type Lipid screening Screening for lipoid disorders documented [facility]* Diagnosis Wellness examination- Primary Hypertension, unspecified type Lipid screening Screening for lipoid disorders 24 weeks gestation of ([facility]) Second trimester ([facility]) state, incidental Elevated glucose tolerance test Impaired glucose tolerance test documented in this encounter [facility]* Diagnosis Gestational diabetes mellitus (GDM) in second trimester, gestational diabetes method of control unspecified [facility] Diagnosis Wellness examination- Primary Hypertension, unspecified type Lipid screening Screening for lipoid disorders 26 weeks gestation of ([facility]) Second trimester ([facility]) state, incidental induced hypertension, antepartum ([facility]) Transient hypertension of , antepartum Gestational diabetes mellitus (GDM) in second trimester, gestational diabetes method of control unspecified ([facility]) documented in [facility]* Diagnosis Wellness examination- Primary Hypertension, unspecified type Lipid screening Screening for lipoid disorders Hypertension affecting , antepartum ([facility])- Primary 27 weeks gestation of ([facility]) Second trimester ([facility]) state, incidental documented [facility]* Diagnosis Diet controlled gestational diabetes mellitus (GDM) in second trimester- Primary Essential hypertension affecting in third trimester [facility] Diagnosis 28 weeks gestation of - Primary Insulin controlled gestational diabetes mellitus (GDM) in second trimester Essential hypertension affecting in third trimester documented in this encounter [facility]* Diagnosis Essential hypertension affecting in third trimester [facility]* Diagnosis Wellness examination- Primary Hypertension, unspecified type Lipid screening Screening for lipoid disorders 29 weeks gestation of ([facility]) Third trimester ([facility]) state, incidental Hypertension affecting , antepartum ([facility]) Gestational diabetes mellitus (GDM), antepartum, gestational diabetes method of control unspecified([facility]) documented in this encounter [facility]* Diagnosis Insulin controlled gestational diabetes mellitus (GDM) in third trimester- Primary Essential hypertension affecting in third trimester documented in this encounter [facility]* Diagnosis Insulin controlled gestational diabetes mellitus (GDM) in second trimester documented in this encounter [facility]* Diagnosis Insulin controlled gestational diabetes mellitus (GDM) in second trimester documented in this encounter [facility]* Diagnosis Wellness examination- Primary Hypertension, unspecified type Lipid screening Screening for lipoid disorders Third trimester ([facility]) state, incidental 31 weeks gestation of ([facility]) Pre-eclampsia in third trimester ([facility]) documented in this encounter [facility] Healthcare[facility]* Diagnosis Insulin controlled gestational diabetes mellitus (GDM) in third trimester- Primary Essential hypertension affecting in third trimester documented in this encounter [facility] SystemHistory general Narrative - Reported* Type Description Date Medical History headache Surgical HistoryappendectomySurgical Historyshoulder surgerySurgical History endometriosis [employer] Other History of Present illness Narrative* 26 [...] engaged x 1 year * working at [employer] in [place] [address] Work Phone: Hospital course Narrative No data available for this section [facility] No data available for this section [facility]ructionsNot on filedocumented in this encounter [facility] filedocumented in this encounter [facility]ructionsNot on filedocumented in this encounter [facility] SystemInstructionsNot on filedocumented in this encounter [facility]* Attachments The following attachments cannot be sent through Care Everywhere. * Preeclampsia (Maldivian) documented in this encounter[facility]ica [facility] SystemInstructionsNot on file documented in this encounterProMedica Health SystemInstructionsNot on file documented in this encounterProMedica Health SystemInstructionsNot on file documented in this encounterProMedica Health SystemInstructionsNot on file documented in this encounterProMedica Health SystemProgress note No data available for this section [facility] for [facility] NarrativePT HERE AT REQUEST OF DR RODRÍGUEZ FOR EVALUATION AND TREATMENT OF ELVATED LIVER FUNCTION- ( DR. SAMUEL PT), LABS FROM DR RODRÍGUEZ REVIEWED BY DR Iraheta [employer] Other Summary Purpose Family History Unknown Family [...] Bilateral ureterolysis Surgeon: Dr. Charlene Rodriguez Resident/Fellow/Other Linux Systems Administrator: Glory Palacio Anesthesia: general I.V. Fluids: 500 [...] to discuss pain related to endometriosis, declined electronics engineering manager. LOOP CUTTER Reason for Referral SpecialtyDiagnoses / ProceduresReferred By ContactReferred To ContactMR IMAGING Diagnoses Pelvic and perineal pain Procedures MRI FEMALE PELVIS WO/W IVCON MRI PELVIS W/O & W/CONTRAST MATERIAL Charlene Rodriguez DO [address] [facility] [address] [place] [address] Mr Imaging Referral IDStatusReasonCharlotte DateExpiration DateVisits RequestedVisits [id number] Auto-Generated Referral /[id number] / ProceduresReferred By ContactReferred To [facility] Diagnoses Constipation, unspecified constipation type High-tone pelvic floor dysfunction Diastasis of rectus abdominis Dysmenorrhea Other specified dyspareunia Chronic pelvic pain in female Procedures CONSULT TO PHYSICAL THERAPY PHYSICAL THERAPY EVALUATION HIGH COMPLEX 45 MINS Jihan Downs, HEALTH TECH.POULTRY KILLER [address] [place] [address] [facility] [place] [address] [place] [id number] Referral IDStatLulacaetrina DateExpiration DateVisits RequestedVisits [id number] Auto-Generated Referral / Chief Complaint and Reason for Visit Chief Complaint Admit Date N94.10 N80.9 February 02, 2025 3:1 6pm Additional Source Comments INFORMATION SOURCE (unrecogn ized section and content) DATE CREATED AUTHOR 10/26/2020 [facility] DATE CREATED AUTHOR AUTHOR'S ORGANIZ ATION 11/06/2020 [facility] DATE CREATED AUTHOR AUTHOR'S ORGANIZ ATION 12/17/2020 [facility] DATE CREATED AUTHOR AUTHOR'S ORGANIZ ATION 04/21/2021 [facility] DATE CREATED AUTHOR AUTHOR'S ORGANIZ ATION 06/05/2021 [facility] DATE CREATED AUTHOR AUTHOR'S ORGANIZ ATION 10/02/2021 [facility] DATE CREATED AUTHOR AUTHOR'S ORGANIZ ATION 02/10/2022 [facility] DATE CREATED AUTHOR AUTHOR'S ORGANIZ ATION 12/05/[address] [facility] DATE CREATED AUTHOR AUTHOR'S ORGANIZ ATION 04/30/2024 [place] DATE CREATED AUTHOR AUTHOR'S ORGANIZ ATION 02/09/2025 [facility] DATE CREATED AUTHOR AUTHOR'S ORGANIZ ATION 03/15/2025 [facility] DATE CREATED AUTHOR AUTHOR'S ORGANIZ ATION 08/03/2025 [facility] DATE CREATED AUTHOR AUTHOR'S ORGANIZ ATION 08/13/2025 [facility] DATE CREATED AUTHOR AUTHOR'S ORGANIZ ATION 08/16/2025 [facility] DATE CREATED AUTHOR AUTHOR'S ORGANIZ ATION 08/20/2025 [facility] DATE CREATED AUTHOR AUTHOR'S ORGANIZ ATION 08/21/2025 [facility] DATE CREATED AUTHOR AUTHOR'S ORGANIZ ATION 08/29/2025 [facility] DATE CREATED AUTHOR AUTHOR'S ORGANIZ ATION 09/12/2025 [facility] DATE CREATED AUTHOR AUTHOR'S ORGANIZ ATION 10/02/2025 [facility] DATE CREATED AUTHOR AUTHOR'S ORGANIZ ATION 10/08/2025 [facility] Care Team (unrecognized sect ion and content) Team MemberRelationshipSpecialtyStart DateEnd Date Denny Rodríguez MD [address] [place] [address] PCP - GeneralFamily Medicine12/03/14Team MemberRelationshipSpecialtyStart DateEnd Date Denny Rodríguez MD [address] [place] [phone] PCP - GeneralFamily Medicine12/03/14Team MemberRelationshipSpecialtyStart DateEnd Date Denny Rodríguez MD [address] [place] [address] PCP - GeneralFamily Medicine12/03/14Team MemberRelationshipSpecialtyStart DateEnd Date Denny Rodríguez MD [address] [place] [phone] PCP - GeneralFamily Medicine12/03/14Team MemberRelationshipSpecialtyStart DateEnd Date Denny Rodríguez MD [address] [place] [address] PCP - GeneralFamily Medicine12/03/14Team MemberRelationshipSpecialtyStart DateEnd Date Denny Rodríguez MD [address] [place] [address] PCP - GeneralFamily Medicine12/03/14Team MemberRelationshipSpecialtyStart DateEnd Date Denny Rodríguez MD [address] [place] [address] PCP - GeneralFamily Medicine12/03/14Team MemberRelationshipSpecialtyStart DateEnd Date Denny Rodríguez MD [address] [place] [address] PCP - GeneralFamily Medicine12/03/14Team MemberRelationshipSpecialtyStart DateEnd Date Denny Rodríguez MD [address] [place] [phone] PCP - GeneralFamily Medicine12/03/14Team MemberRelationshipSpecialtyStart DateEnd Date Denny Rodríguez MD [address] [place] [address] [facility] - [facility]12/03/14Team MemberRelationshipSpecialtyStart DateEnd Date Denny Rodríguez MD [address] [place] [address] PCP - [facility] Adnhghxvah46/1/21 Denny Rodríguez MD [address] [place] [address] PCP - GeneralFawaly Medicine04/10/23 Denny Rodríguez MD [address] [place] [address] PCP - [facility]02/24/23 Zenobia [place] NP [address] [place] [address] Nurse [facility]10/05/23 Trista Thao NP [address] [place] [address] Nurse PractitionerPulmonary Vatttor77/10/23Team MemberRelationshipSpecialtyStart DateEnd Date Denny Rodríguez MD [address] [place] [phone] PCP - GeneralFamily Medicine12/03/14Team MemberRelationshipSpecialtyStart DateEnd Date Denny Rodríguez MD [address] [place] [phone] PCP - GeneralChi [facility]ly Medicine12/03/14Team MemberRelationshipSpecialtyStart DateEnd Date Denny Rodríguez MD [address] [place] [id number] PCP - [facility] Evakwajpdx73/1/21 Denny Rodríguez MD [address] [place] [facility] PCP - [facility]02/24/23 Eliceo Beltran DO [address] [place] [address] PCP - Generalmily Medicine02/14/24Team MemberRelationshipSpecialtyStart DateEnd Date Denny Rodríguez MD [address] [place] [address] PCP - [facility] Pvrpyoemwl10/1/21 Denny Rodríguez MD [address] [place] [address] PCP - [facility]02/24/23 Eliceo Beltran DO [address] [place] [address] PCP - [facility] Medicine02/14/24Team MemberRelationshipSpecialtyStart DateEnd Date Denny Rodríguez MD [address] [place] [address] PCP - [facility] Lcijguppre76/1/21 Denny Rodríguez MD [address] [place] [address] PCP - [facility]02/24/23 Eliceo Beltran DO [address] [place] [address] PCP - [facility]02/14/24Team MemberRelationshipSpecialtyStart DateEnd Date Denny Rodríguez MD [address] [place] [address] PCP - [facility] Rzaanuyyxj05/1/21 Denny Rodríguez MD [address] [place] [address] PCP - [facility]02/24/23 Eliceo Beltran DO [address] [place] [address] PCP - [facility]02/14/24Team MemberRelationshipSpecialtyStart DateEnd Date Denny Rodríguez MD [address] [place] [address] PCP - [facility] Fyzcjkfnyx39/1/21 Denny Rodríguez MD [address] [place] [address] PCP - [facility]02/24/23 Eliceo Beltran DO [address] [place] [address] PCP - GeneralFamily Medicine02/14/24Team MemberRelationshipSpecialtyStart DateEnd Date Denny Rodríguez MD [address] [place] [address] PCP - [facility] Mscidmbgfm71/1/21 Eliceo Beltran DO [address] [place] [address] PCP - Generalmily Medicine02/14/24Team MemberRelationshipSpecialtyStart DateEnd Date Eliceo Beltran DO [address] [place] [address] PCP - GeneralFamily Medicine02/14/24Team MemberRelationshipSpecialtyStart DateEnd Date Eliceo Beltran DO [address] [place] [address] PCP - Generalmily Medicine02/14/24 Team Status: Active Member Role Status Dates Denny Rodríguez MD Primary Care Provider Active Team Status: Inactive Member Role Status Dates Denny Rodríguez MD Primary Care Provider Active S tart: February 02, 2025 End: February 02aminta Pop DOAttending ProviderActiveStart: February 02, 2025 End: February 02, 2025Team MemberRelationshipSpecialtyStart DateEnd Date Eliceo Beltran DO [address] [place] [address] PCP - [facility] Medicine02/14/24 Eliceo Beltran DO [address] [place] [address] PCP - [facility] [employer]07/27/2412Team MemberRelationshipSpecialty Start DateEnd Date Eliceo Beltran DO [address] [place] [address] PCP - [facility] Medicine02/14/24 Eliceo Beltran DO [address] [place] [address] PCP - [facility] [employer]07/27/2412Team MemberRelationshipSpecialty Start DateEnd Date Eliceo Beltran DO [address] [place] [address] PCP - [facility] Medicine02/14/24 Eliceo Beltran DO [address] [place] [address] PCP - [facility] [employer]07/27/2412Team MemberRelationshipSpecialty Start DateEnd Date Eliceo Beltran DO [address] [place] [address] PCP - [facility] Medicine02/14/24 Eliceo Beltran DO [address] [place] [address] PCP - [facility] [employer]07/27/2412Te MemberRelationshipSpecialty Start DateEnd Date Eliceo Beltran, DO [address] [place] [address] PCP - [facility] Medicine02/14/24 Eliceo Beltran, DO [address] [place] [address] PCP - [facility] [employer]07/27/2412Team MemberRelationshipSpecialty Start DateEnd Date Eliceo Beltran, DO [address] [place] [address] PCP - [facility] Medicine02/14/24 Eliceo Beltran, DO [address] [place] [address] PCP - [facility] [employer]07/27/2412Team MemberRelationshipSpecialty Start DateEnd Date Eliceo Beltran, DO [address] [place] [address] PCP - [facility] Medicine02/14/24 Eliceo Beltran, DO [address] [place] [address] PCP - [facility] [employer]07/27/2412Te MemberRelationshipSpecialty Start DateEnd Date Eliceo Beltran, DO [address] [place] [address] PCP - Generalmily Medicine02/14/24 Eliceo Beltran, [address] [place] [address] PCP - [facility] [employer]07/27/2412Team MemberRelationshipSpecialty Start DateEnd Date Eliceo Beltran DO [address] [place] [address] PCP - [facility] Medicine02/14/24 Eliceo Beltran, [address] [place] [address] PCP - [facility] [employer]07/27/2412Team MemberRelationshipSpecialty Start DateEnd Date Eliceo Beltran DO [address] [place] [address] PCP - [facility] Medicine02/14/24 Eliceo Beltran DO [address] [place] [address] PCP - [facility] [employer]07/27/2412Team MemberRelationshipSpecialty Start DateEnd Date Eliceo Beltran DO [address] [place] [address] PCP - [facility] Medicine02/14/24 Eliceo Beltran DO [address] [place] [address] PCP - [facility] [employer]07/27/2412Team MemberRelationshipSpecialty Start DateEnd Date Denny Rodríguez MD [address] [place] [address] PCP - [facility] Medicine12/02/18 MemberRelationshipSpecialtyStart DateEnd Date Denny Rodríguez MD [address] [place] [address] PCP - [facility] Medicine12/02/18 MemberRelationshipSpecialtyStart DateEnd Date Eliceo Beltran, DO [address] [place] [address] PCP - [facility]02/14/24 Eliceo Beltran, DO [address] [place] [address] PCP - [facility] [employer]07/27/2412Te MemberRelationshipSpecialty Start DateEnd Date Eliceo Beltran, DO [address] [place] [address] PCP - [facility]02/14/24 Eliceo Beltran, DO [address] [place] [address] PCP - [facility]07/27/2412Te MemberRelationshipSpecialty Start DateEnd Date Eliceo Beltran, DO [address] [place] [address] PCP - [facility]02/14/24 Eliceo Beltran, DO [address] [place] [address] PCP - [facility]07/27/2412Team MemberRelationshipSpecialty Start DateEnd Date Eliceo Beltran DO [address] [place] [address] PCP - GeneralFamily Medicine02/14/24 Eliceo Beltran DO [address] [place] [address] PCP - [facility]07/27/2412Team MemberRelationshipSpecialty Start DateEnd Date Denny Rodríguez MD [address] [place] [address] PCP - GeneralFamily Medicine12/02/18Team MemberRelationshipSpecialtyStart DateEnd Date Eliceo Beltran DO [address] [place] [address] PCP - GeneralFamily Medicine02/14/24 Eliceo Beltran DO [address] [place] [address] PCP - [facility]07/27/2412Team MemberRelationshipSpecialty Start DateEnd Date Eliceo Beltran DO [address] [place] [address] PCP - GeneralFamily Medicine02/14/24 Eliceo Beltran DO [address] [place] [address] PCP - [facility]07/27/2412Team MemberRelationshipSpecialty Start DateEnd Date Denny Rodríguez MD [address] [place] [address] PCP - Generalmily Medicine12/02/18Team MemberRelationshipSpecialtyStart DateEnd Date Denny Rodríguez MD [address] [place] [address] [facility] - [facility]12/02/18Team MemberRelationshipSpecialtyStart DateEnd Date Eliceo Beltran DO [address] [place] [address] [facility] Eliceo Beltran DO [address] [place] [address] PCP - [facility]07/27/2412Team MemberRelationshipSpecialty Start DateEnd Date Eliceo Beltran DO [address] [place] [address] PCP - [facility] Medicine02/14/24 Eliceo Beltran DO [address] [place] [address] PCP - [facility] [employer]07/27/2412Team MemberRelationshipSpecialty Start DateEnd Date Denny Rodríguez MD [address] [place] [address] [facility]/18Team MemberRelationshipSpecialtyStart DateEnd Date Denny Rodríguez MD [address] [place] [address] PCP - GeneralFamily Medicine12/02/18Team MemberRelationshipSpecialtySthomer DateEnd Date Denny Rodríguez MD [address] [place] [address] PCP - [facility] Gvgpekqipj32/1/ Denny Rodríguez MD [address] [place] [address] PCP - GeneralFamily Medicine Denny Rodríguez MD [address] [place] [address] PCP - [facility] Eliceo Beltran DO [address] [place] [address] [facility] - [facility]02/14/24 Eliceo Beltran DO [address] [place] [address] PCP - [facility]07/27/2412 Zenobia East NP [address] [place] [address] Nurse PractitionerFamily Hmmuuylz01/10/235 Trista Thao NP [address] [place] [id number] Nurse PractitionerPulmonary Kgbrkxh92/10/235Team MemberRelationship SpecialtyStart DateEnd Date Eliceo Beltran DO [address] [place] [address] PCP - GeneralFamily Medicine02/14/24 Eliceo Beltran [address] [place] [address] PCP - [facility]07/27/2412Team MemberRelationshipSpecialty Start DateEnd Date Denny Rodríguez MD [address] [place] [address] PCP - GeneralFamily Medicine12/02/18 Source Comments (unrecognize d section and content) In the event this informatio n is protected by the Federal Confidentiality of Alcohol and Drug Abuse Patient Records regulations: The Federal rules restrict any use of the information to criminally investigate or prosecute any alcohol or drug abuse patient.[facility] HospitalIn the event this information is protected by the Federal Confidentiality of Alcohol and Drug Abuse Patient Records regulations: The Federal rules restrict any use of the information to criminally investigate or prosecute any alcohol or drug abuse patient.[facility] HospitalIn the event this information is protected by the Federal Confidentiality of Alcohol and Drug Abuse Patient Records regulations: The Federal rules restrict any use of the information to criminally investigate or prosecute any alcohol or drug abuse patient.[facility] HospitalIn the event this information is protected by the Federal Confidentiality of Alcohol and Drug Abuse Patient Records regulations: The Federal rules restrict any use of the information to criminally investigate or prosecute any alcohol or drug abuse patient.[facility] HospitalIn the event this information is protected by the Federal Confidentiality of Alcohol and Drug Abuse Patient Records regulations: The Federal rules restrict any use of the information to criminally investigate or prosecute any alcohol or drug abuse patient.[facility] HospitalIn the event this information is protected [...] prosecute any alcohol or drug abuse patient.[facility] HospitalIn the event this information is protected by the Federal Confidentiality of Alcohol and Drug Abuse Patient Records regulations: The Federal rules restrict any use of the information to criminally investigate or prosecute any alcohol or drug abuse patient.[facility] HospitalIn the event this information is protected by the Federal Confidentiality of Alcohol and Drug Abuse Patient Records regulations: The Federal rules restrict any use of the information to criminally investigate or prosecute any alcohol or drug abuse patient.[facility] HospitalIn the event this information is protected by the Federal Confidentiality of Alcohol and Drug Abuse Patient Records regulations: The Federal rules restrict any use of the information to criminally investigate or prosecute any alcohol or drug abuse patient.[facility] HospitalIn the event this information is protected by the Federal Confidentiality of Alcohol and Drug Abuse Patient Records regulations: The Federal rules restrict any use of the information to criminally investigate or prosecute any alcohol or drug abuse patient.[facility] HospitalIn the event this information is protected by the Federal Confidentiality of Alcohol and Drug Abuse Patient Records regulations: The Federal rules restrict any use of the information to criminally investigate or prosecute any alcohol or drug abuse patient.[facility] HospitalIn the event this information is protected by the Federal Confidentiality of Alcohol and Drug Abuse Patient Records regulations: The Federal rules restrict any use of the information to criminally investigate or prosecute any alcohol or drug abuse patient.[facility] HospitalIn the event this information is protected by the Federal Confidentiality of Alcohol and Drug Abuse Patient Records regulations: The Federal rules restrict any use of the information to criminally investigate or prosecute any alcohol or drug abuse patient.[facility] HospitalIn the event this information is protected by the Federal Confidentiality of Alcohol and Drug Abuse Patient Records regulations: The Federal rules restrict any use of the information to criminally investigate or prosecute any alcohol or drug abuse patient.[facility] Reason for Visit (unrecogniz ed section and content) ReasonCommentsMenstrual ProblemReasonCommentsVaginal BleedingReasonComments EndometriosisReasonCommentsInsurance AuthorizationOrilissaReasonCommentsPelvic PainSpecialtyDiagnoses / ProceduresReferred By ContactReferred To ContactOB/WATER VALVE REPAIRER / GYNECOLOGY Diagnoses Painful menstrual periods Painful Periods Procedures OFFICE/OUTPATIENT ESTABLISHED SF MDM 10-19 MIN EST WHI PATIENT Jihan Downs, HEALTH TECH.POULTRY KILLER [address] [place] [id number] Jihan Downs, HEALTH TECH.POULTRY KILLER [address] [place] [id number] Referral IDStatusReasonStart DateExpiration DateVisits RequestedVisits [id number]/25/202312/[id number] MRI SpecialtyDiagnoses / ProceduresReferred By ContactReferred To ContactMR IMAGING Diagnoses Pelvic and perineal pain Procedures MRI FEMALE PELVIS WO/W IVCON MRI PELVIS W/O & W/CONTRAST MATERIAL Charlene Rodriguez DO [address] [facility] [address] [place] [address] Mr Imaging [place] [address] Referral IDStatusReasonStart DateExpiration DateVisits RequestedVisits [id number] Auto-Generated Referral /[id number] DateCommentsRefill Wtqodaf0301/02/2024eason CommentsMenorrhagiaCramping with bleedingReasonCommentsSurgery Cancelled SpecialtyDiagnoses / ProceduresReferred By ContactReferred To Contact Diagnoses Preeclampsia, severe, third trimester Procedures O14.13 - Preeclampsia, severe, third trimester Kathe Ryder, [address] [place] [address] [facility] [address] [place] [address] Referral IDStatusReasonStart DateExpiration DateVisits RequestedVisits [id number] Pressure CheckReasonCommentsDysmenorrhea ReasonCommentsWell Women VisitReasonCommentsShoulder PainReasonCommentsPainful IntercourseReasonCommentsAmenorrheaReasonCommentsRoutine VisitReason CommentsGestational DiabetesSpecialtyDiagnoses / ProceduresReferred By Contact Referred To ContactMaternal and Medicine Diagnoses Gestational diabetes mellitus (GDM) in second trimester, gestational diabetes method of control unspecified Nathan Pop, DO [address] [place] [address] [place] [address] Phone: tel: fax: [facility] at [facility] [address] [place] [address] Phone: tel: fax: Referral IDStatusReasonStart DateExpiration DateVisits RequestedVisits [id number] Review Specialty Services Required /[id number] consult Scheduled Active and Recently Administ ered [...] (Given - Provider: Anna Booth RN) Medication Order11/30////05/2023 magnesium sulfate 20 GM/500ML [...] every 2-3 minutes with cervical changes or [place] units (MVU) greater than 200 in a [...] * 0059 (Rate/Dose Change - Provider: Chelsi Carlson, DIALLO) * 0223 (Rate/Dose Change - Provider: Chelsi Carlson, DIALLO) oxytocin (Pitocin) 30 units in 500 [...] BE BASED ON THE PRIMARY CLINICAL RECORDS. [employer] provides no warranty or guarantee of the accuracy or completeness of information in this document.
--- OUTSIDE RECORDS SUMMARY | 2025-10-10 10:22 | XMS_ITS | Encounter Summary ---
Author Organization [facility] tem Address [id number] [place] [address] Care Team Providers Care Customer Support Manager Name Role Phone Cruz Rodríguez MD Primary Care Provider [phone] Reason for Referral * Diagnostic Imaging (Routine) - Pending ReviewSpecialtyDiagnoses / Procedures Referred By ContactReferred To ContactMaternal and Medicine Diagnoses Essential hypertension affecting in third trimester Insulin controlled gestational diabetes mellitus (GDM) in third trimester Procedures [facility] with or without consult Jean Carlos Pina MD [address] [facility], [address] [place] [address] Phone: tel: fax: Maternal- Medicine at [facility] [address] [place] [address] Phone: tel: fax: Referral IDStatusReasonStart DateExpiration DateVisits RequestedVisits [id number] Encounter Details DateTypeDepartmentCare Team (Latest Contact Info)Csyaxxevlcx38/14/2025Orders Only Maternal- Medicine at [facility] [address] [place] [address] Zora Samuels RN Essential hypertension affecting in third trimester (Primary Dx); Insulin controlled gestational diabetes mellitus (GDM) in third trimester Social History Tobacco UseTypesPacks/DayYears [...] or more drinks on one occasion?Never5ChildcareAnswer Date AqwhecwlYeqyooppoDtlcvqp08/13/2019EmploymentAnswerDate RecordedEmployment Ielzmvu2505/08/2019Hunger ScreeningAnswerDate RecordedWithin the past 12 months we worried whether our food would run out before we got money to buy more.Never True09/10/2025Within the past 12 months the food we bought just didn't last and we didn't have money to get more.Never True09/10/2025Purpose - LifeAnswerDate RecordedPurpose and direction in gxhnHfmsozk67/11/2021Estimated Date of XpbttacwZlxxuoexEnz08/03/2026Based on last menstrual period of 02/21/2025 (Exact Date)Sex and Gender InformationValueDate RecordedSex Assigned at BirthNot on fileLegal SykNzfqjy66/07/2019 2:55 PM ESTGender IdentityNot on fileSexual OrientationNot on filedocumented as of this encounter Plan of Treatment DateTypeDepartmentCare Team (Latest Contact Info)Lnehmxbxlhz15/03/2025 11:00 AM ESTAppointment Maternal Medicine [place] [address] [place] [address] 11/03/2025 2:30 PM ESTOffice Visit Maternal- Medicine at [facility] [address] [facility] [place] [phone] Kayleigh Rizzo PA-C [address] [facility] [address] [place] [address] NameTypePriorityAssociated DiagnosesOrder ScheduleUS MFM with or without consult ImagingRoutine Essential hypertension affecting in third trimester Insulin controlled gestational diabetes mellitus (GDM) in third trimester Expected: 10/09/2026 (Approximate), Expires: 01/07/2027documented as of this encounter Visit Diagnoses Diagnosis Essential hypertension affecting in third trimester- Primary Insulin controlled gestational diabetes mellitus (GDM) in third trimester documented in this encounter Care Teams Team MemberRelationshipSpecialtyStart DateEnd Date Cruz Rodríguez MD [address] [place] [address] PCP - GeneralFamily Medicine12/02/18documented as of this encounter
--- OUTSIDE RECORDS SUMMARY | 2025-10-10 10:22 | XMS_ITS | Encounter Summary ---
Author Organization [facility] Address [address] [place] [address] Care Team Providers Care Tow Boat Captain Name Role Phone Eliceo Beltran DO Primary Care Provider [phone] CharlottegeovaniEliceo kauffman Unavailable [phone] Encounter Details DateTypeDepartmentCare Team (Latest Contact Info)Rdddfkoghtd43/14/2025bstract [facility] [place] [facility] [address] [place] [address] Nathan Pop DO [address] [facility] [address] [place], [facility] Social History Tobacco UseTypesPacks/DayYears UsedDateSmoking Tobacco: NeverSmokeless Tobacco: NeverAlcohol UseStandard Drinks/WeekCommentsNever0 (1 standard drink = 0.6 oz pure alcohol)caffeine: 1-2 cups per day, coffee and puvI1676 Health Literacy AnswerDate RecordedHow often do you [...] week12/29/2024How often do you attend sikhism or rastafarian services?Patient jnilswaq94/03/2025Do you belong to any clubs or organizations such as sikhism groups, unions, Goojitsu or athletic leodan ups, or school groups?No12/29/2024How often do you attend meetings of the clubs or organizations you belong to?Patient ulvuqrfh39/03/2025re you , , , , never , [...] at all12/29/2024PHQ-2AnswerDate RecordedPatient Health Questionnaire-2 Score0 07/30/2025Finmount[facility] [place] of Occupational Health - Occupational Stress QuestionnaireAnswerDate RecordedDo you feel stress - tense, restless, nervous, or anxious, or unable to sleep at night because yourmind is troubled all the time - these days?Only a bsxpoq2212/29/2024Exercise Vital SignAnswerDate Recorded On average, how many [...] have received?High school /29/2023 Estimated Date of QrborksrXubqqcqfVad34/03/2026ased on last menstrual period of 02/21/2025Sex and Gender InformationValueDate RecordedSex Assigned at BirthNot on fileLegal LnmAemanv73/15/2023 7:18 PM EDTGender IdentityNot on file Sexual OrientationNot on 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 Not on fileNot on fileNot on filedocumented as of this encounter Plan of Treatment DateTypeDepartmentCare Team (Latest Contact Info)Fjfssnjoard79/19/2025 3:30 PM ESTRoutine [facility] YOUNGN [address] [place] [phone] Nathan Pop DO [address] [facility] [place] [address] documented as of this encounter Visit Diagnoses Not on filedocumented in this encounter Care Teams Team MemberRelationshipSpecialtyStart DateEnd Date Eliceo Beltran DO [address] [address] PCP - GeneralFamily Medicine02/14/24 Eliceo Beltran DO [address] [facility] [address] [place] [address] PCP - Medical [place] [employer]07/27/2412documented as of this encounter
--- OUTSIDE RECORDS SUMMARY | 2025-10-10 10:22 | XMS_ITS | Encounter Summary ---
Author Organization [facility] tem Address [id number] [address] [place] [address] Care Team Providers Care Counter Caser Name Role Phone Cruz Rodríguez MD Primary Care Provider [phone] Reason for Referral * Diagnostic Imaging (Routine) - Pending ReviewSpecialtyDiagnoses / Procedures Referred By ContactReferred To ContactMaternal and Medicine Diagnoses Insulin controlled gestational diabetes mellitus (GDM) in third trimester Essential hypertension affecting in third trimester Encounter for follow-up ultrasound of anatomy History of pre-eclampsia in prior , currently Hx of delivery, currently , second trimester Procedures US MFM with or without consult Nathan Pop DO [address] [place] [address] [place] [address] Phone: tel: fax: Maternal- Medicine at [facility] [address] [place] [address] Phone: tel: fax: Referral IDStatusReasonStart DateExpiration DateVisits RequestedVisits [id number] [id number] Encounter Details DateTypeDepartmentCare Team (Latest Contact Info)Kmvcdbwryqc25/13/2025Orders Only Maternal Medicine [place] [address] [place] [address] Danae Ramirez RN Insulin controlled gestational diabetes mellitus (GDM) in third trimester (Primary Dx); Essential hypertension affecting in third trimester; Encounter for follow-up ultrasound of anatomy; History of pre-eclampsia in prior , currently ; Hx of delivery, currently , second trimester Social History Tobacco UseTypesPacks/DayYears UsedDateSmoking Tobacco: NeverSmokeless Tobacco: NeverAlcohol UseStandard Drinks/WeekCommentsNo0 (1 standard drink = 0.6 oz pure alcohol)AUDIT-CAnswerDate RecordedQ1: How often do you have a drink containing alcohol?Never09/10/2025Q2: How many drinks containing alcohol do you have on a typical day when you are drinking?Patient does not drink09/10/2025Q3: How often do you have six or more drinks on one occasion?Never5ChildcareAnswer Date RpxtnvzrCnrpxdshuSgqnodq08/13/2019EmploymentAnswerDate RecordedEmployment Zhwhlaj8405/08/2019Hunger ScreeningAnswerDate RecordedWithin the past 12 months we worried whether our food would run out before we got money to buy more.Never True09/10/2025Within the past 12 months the food we bought just didn't last and we didn't have money to get more.Never True09/10/2025Purpose - LifeAnswerDate RecordedPurpose and direction in mcmvChvbdtq81/11/2021Estimated Date of OnkbjdxzLowqbkpoTkh32/03/2026Based on last menstrual period of 02/21/2025 (Exact Date)Sex and Gender InformationValueDate RecordedSex Assigned at BirthNot on fileLegal EyrDaxbvu92/07/2019 2:55 PM ESTGender IdentityNot on fileSexual OrientationNot on filedocumented as of this encounter Plan of Treatment DateTypeDepartmentCare Team (Latest Contact Info)Adsxshsazxn47/03/2025 11:00 AM ESTAppointment Maternal Medicine [place] [address] [place] [address] 11/03/2025 2:30 PM ESTOffice Visit Maternal- Medicine at [facility] [address] [place] [phone] Kayleigh Rizzo PA-C [address] [address] NameTypePriorityAssociated DiagnosesOrder ScheduleUS MFM with or without consult ImagingRoutine Insulin controlled gestational diabetes mellitus (GDM) in third trimester Essential hypertension affecting in third trimester Encounter for follow-up ultrasound of anatomy History of pre-eclampsia in prior , currently Hx of delivery, currently , second trimester Expected: 10/08/2025, Expires: 10/08/2026documented as of this encounter Visit Diagnoses Diagnosis Insulin controlled gestational diabetes mellitus (GDM) in third trimester- Primary Essential hypertension affecting in third trimester Encounter for follow-up ultrasound of anatomy History of pre-eclampsia in prior , currently with other poor obstetric history Hx of delivery, currently , second trimester documented in this encounter Care Teams Team MemberRelationshipSpecialtyStart DateEnd Date Cruz Rodríguez MD [address] [place] [address] PCP - GeneralFamily Medicine12/02/18documented as of this encounter
--- NOTE | 2025-10-10 10:23 | US_ITS ---
[place] [id number] Patient Name: JUHI HOPE MRN: [id number] date: 1995 Sex: F Assigned Patient Location: [facility] Current Patient Location: [facility] Accession/Order Number: [id number] Exam Date: 10/10/2025 10:49 Report Date: 10/11/2025 13:46 At the request of: JONY MEJÍA DO Procedure: US OB BPP w non-stress Ultrasound biophysical profile HISTORY: -induced hypertension Adequate breathing movement, gross body movement, tone and amniotic fluid volume for total score of 8 out of 8. The amniotic fluid index is 10.5cm within normal limits. The heart rate 141 bpm. US/US OB BPP w non-stress IMPRESSION: Adequate ultrasound biophysical profile Impression dictated by: Jp Morillo M.D. 10/11/2025 1:46 PM Dictation [facility] Electronically authenticated by: [id number] Y Date: 10/11/2025 13:46
--- OUTSIDE RECORDS SUMMARY | 2025-10-10 10:23 | XMS_ITS | Encounter Summary ---
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 [place], [place] [address] Social History Tobacco UseTypesPacks/DayYears UsedDateSmoking Tobacco: NeverSmokeless Tobacco: NeverAlcohol UseStandard Drinks/WeekCommentsNever0 (1 standard drink = 0.6 oz pure alcohol)caffeine: 1-2 cups per day, coffee and [id number] Health Literacy AnswerDate RecordedHow often do you [...] relatives?Once a week12/29/2024How often do you attend orthodoxy or judaism services?Patient xqrvscru26/03/2025Do you belong to any clubs or organizations such as orthodoxy groups, unions, [employer] or athletic leodan ups, or school groups?No12/29/2024How often do you attend meetings of the clubs or organizations you belong to?Patient mybclcky14/03/2025re you , , , , never , [...] hard at all12/29/2024PHQ-2AnswerDate RecordedPatient Health Questionnaire-2 Score0 07/30/2025[facility] [place] [facility] - Occupational Stress QuestionnaireAnswerDate RecordedDo you feel stress - tense, restless, nervous, or anxious, or unable to sleep at night because yourmind is troubled all the time - these days?Only a okuufr6012/29/2024Exercise Vital SignAnswerDate Recorded On average, how many [...] steady place to sleep or slept in [facility] (including now)?No09/19/2023Housing Stability Vital SignAnswerDate RecordedIn [...] the highest degree you have received?High school xsiabhmc22/29/2023 Estimated Date of ThogzyaoWalnoctlKuz94/03/2026ased on last menstrual period of 02/21/2025Sex and Gender InformationValueDate RecordedSex Assigned at BirthNot on fileLegal FtgYcypdw76/15/2023 7:18 PM EDTGender IdentityNot on file Sexual OrientationNot on 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 [place] [address] documented as of this encounter Visit Diagnoses Not on filedocumented in this encounter Care Teams Team MemberRelationshipSpecialtyStart DateEnd Date Eliceo Beltran DO [address] [address] PCP - GeneralFamily Medicine02/14/24 Eliceo Beltran DO [address] [place] [address] PCP - Medical [employer]07/27/2412documented as of this encounter
--- OUTSIDE RECORDS SUMMARY | 2025-10-10 10:24 | XMS_ITS | Clinical Summary ---
Author Organization [facility] Address [address] [place] [address] Care Team Providers Care Clay Hoister Name Role Phone Eliceo Beltran DO Primary Care Provider [phone] Eliceo Beltran DO Unavailable [phone] Allergies No known active allergies Medications MedicationSigDispense QuantityRefillsLast FilledStart DateEnd DateStatus metoprolol succinate XL (Toprol-XL) 25 MG 24 hr tablet Indications:Hypertension, unspecified typeTake 1 tablet by mouth daily 90 tablet 5Active Vit-Fe Fumarate-FA ( Vitamins) 28-0.8 MG tablet Indications:, unspecified gestational age ([facility]),Encounter for supervision of normal first in first trimester ([facility])Take 1 tablet by mouth Daily 30 tablet 110/6Active Alcohol Swabs (Alcohol Prep Pad) 70 % pads Indications:Gestational diabetes mellitus (GDM), antepartum, gestational diabetes method of control unspecified([facility]),Elevated glucose tolerance test Apply 1 Pad topically Daily Use four times daily to check FSBS. 150 each 5Active Blood Glucose Monitoring Suppl (D-Care Glucometer) w/Device kit Indications:Gestational diabetes mellitus (GDM), antepartum, gestational diabetes method of control unspecified([facility]),Elevated glucose tolerance test1 kit Daily Use [...] Inject 13 Units under the skin at qayuujl70/21/2025Active Lancets Ultra Thin misc Indications:Gestational diabetes mellitus [...] atotal of 4times daily. 150 strip Expired mwcgdrrlqh-tswvfmf-pymxjunz (Fiorinal) 50-325-40 MG capsule Take 1 capsule by mouth every 4 (four) hours if imuciu1609/16/2025Discontinued cetirizine (ZyrTEC) 10 MG tablet Take 10 mg by mouth in the morning.09/16/2025Discontinued Ferrous Sulfate (IRON PO) Take 1 tablet by mouth in the morning.09/16/2025Discontinued fluticasone (Flonase) 50 MCG/ACT nasal spray Administer 1 spray into affected nostril(s) in the morning.09/16/2025 Discontinued Active Problems ProblemNoted DateDiagnosed WivgEuzclzrs47/29/3048Jhrlbcjupsz41/26/2024Obesity (BMI 30-39.9)02/19/2024cquired equinus deformity of foot03/29/2023isplacement of cervical intervertebral disc without fssoynoxzm61/04/2023ysmenorrhea 03/29/20239735Gfqxpepnisyys54/04/1989Gptqddbntebbr99/04/2132Dbantvygsppq96/04/2023 Assessment & Plan (07/30/2025 4:00 PM EDT): Record Blood Pressures 2-4 times weekly and record. Return with readings at next appointment. Call with readings if sees significant changes Intractable migraine without aura and with status gfrdbricfoa84/04/2023Migraines 03/29/2023hronic pelvic pain in dhewff2703/29/2023ain in female genitalia on ycfmjxqnfxe39/04/2023ain on ajblmfqzen11/04/2023anic okftzlem89/04/2023 Patellofemoral disorders, left knee03/29/2023atellofemoral disorders, right knee03/29/2023osterior calcaneal cfztacmyb66/04/2023Scapular dyskinesis 03/29/20238777Dxxqfgpfk83/04/2023Seasonal allergic rhinitis due to pzaosy7203/29/2023 Tachycardia, abglblcgxj60/04/2023Tension uabrpwjj11/04/2023Vitamin B12 llzfatqyyr58/04/2023Vitamin D /04/2023hronic right shoulder pain 03/29/2023Estimated Date of NdiyszijTkjklawqYvb20/03/2026Based on last menstrual period of 02/21/2025 Encounters DateTypeDepartmentCare SqkzAkzdbysxpak11/14/2025bstract [facility] [address] [place] [address] Nathan Pop, 10/03/2025linisync Result Encounter NOMS External Department Unsolicited Steph Keane NP 10/01/2025[place] [address] Nathan Pop, 09/30/2025 3:00 [place] [address] Nathan Pop, DO Third trimester ([facility]); 31 weeks gestation of ([facility]); Pre-eclampsia in third trimester ([facility])09/30/2025[place] [address] Nathan Pop, DO 09/26/2025linisync Result Encounter NOMS External Department Unsolicited Steph Keane NP 09/23/20256597Gssfuw72/25/2025linisync Result Encounter NOMS External Department Unsolicited Steph Keane NP 09/16/2025 3:20 PM EDTRoutine [facility] [address] [place] [address] Nathan Pop, DO 29 weeks gestation of ([facility]); Third trimester ([facility]); Hypertension affecting , antepartum ([facility]); Gestational diabetes mellitus (GDM), antepartum, gestational diabetes method of control unspecified([facility])09/16/2025amboo flowsheet [facility] [address] [place] [address] Nathan Pop, DO 09/11/2025bstract [facility] [place] [facility] [address] [place] [address] Nathan Pop, DO 09/09/20254754Ndutkr89/09/2025 3:50 PM EDTRoutine [facility] [address] [place] [address] Steph Keane NP Hypertension affecting , antepartum ([facility]) (Primary Dx); 27 weeks gestation of ([facility]); Second trimester ([facility])09/03/2025linisync Result Encounter NOMS External Department Unsolicited Nathan Pop, DO 09/03/2025amb flowsheet [facility] [place] [facility] [address] [place] [address] Steph Keane NP 09/02/20256440Lzobix77/04/2025linisync Result Encounter NOMS External Department Unsolicited Steph Keane NP 08/28/2025bstract [facility] [address] [place] [address] Eliceo Beltran, DO 08/28/2025Telephone [facility] [address] [place] [address] Radha Rahman MA 08/27/2025 3:20 PM EDTRoutine [facility] [place] [facility] [address] [place] [address] Steph Keane, DEVYN 26 weeks gestation of ([facility]); Second trimester ([facility]); induced hypertension, antepartum ([facility]); Gestational diabetes mellitus (GDM) in second trimester, gestational diabetes method of control unspecified ([facility])08/27/2025linisync Result Encounter NOMS External Department Unsolicited Steph Keane NP 08/27/2025linisync Result Encounter NOMS External Department Unsolicited Steph Keane NP 08/27/2025amboo flowsheet [facility] [address] [place] [address] Steph Keane NP 08/25/2025linisync Result Encounter NOMS External Department Unsolicited Provider, Generic External Data 08/20/2025bstract [facility] [place] [facility] [address] [place] [address] Nathan Pop, 08/20/2025Telephone [facility] [address] [place] [address] Steph Keane NP 08/17/2025bstract [facility] [address] [place] [address] Eliceo Beltran, DO 08/17/2025bstract [facility] [address] [place] [address] Eliceo Beltran, DO 08/17/2025Telephone [facility] [address] [place] [address] Nathan Pop, 08/12/2025 2:40 PM EDTRoutine [facility] [address] [place] [address] Nathan Pop, DO 24 weeks gestation of ([facility]); Second trimester ([facility]); Elevated glucose tolerance test08/12/2025 2:00 PM EDTAncillary Procedure [facility] [address] [place] [address] Encounter for follow-up ultrasound of anatomy ([facility])08/12/2025Telephone [facility] [address] [place] [address] Bill Gould LPN Ijblorr8408/12/2025bstract [facility] [address] [place] [address] Eliceo Beltran, DO 08/04/2025Telephone [facility] [address] [place] [address] Bill Gould LPN Mkwzpvq9307/30/2025 3:40 PM EDTOffice Visit [facility] [address] [place] [address] Eliceo Beltran, DO Wellness examination (Primary Dx); Hypertension, unspecified type ; Lipid /04/2025amboo flowsheet [facility] [address] [place] [address] Eliceo Beltran, 07/30/20254281Xvettp99/26/2025Telephone [facility] [address] [place] [address] Nathan Pop DO 07/15/2025 3:30 PM EDTRoutine [facility] [place] [address] Nathan Pop DO 20 weeks gestation of ([facility]); Second trimester ([facility]); Diabetes mellitus evcojypjt65/20/2025 2:30 PM EDTAncillary Procedure [facility] [address] [place], [place] [address], [place] [address] Screening, , for anatomic survey ([facility])5Clinisync Result Encounter NOMS External Department Unsolicited Nathan Pop DO from Last 3 Months Immunizations ImmunizationAdministration DatesNext DueDTP / HiB08/01/1996,1995, 1995DTaP, Rkxpfqtgera31/08/2000,12/29/1997HPV, Mvzrlbkjfasn12/17/2014, 05/04/2014,2014Hep A, Adult09/11/2014,2014Hep B, Adolescent or Wbpznkxvc63/06/1996,1995,1995IPV05/03/2000Influenza, seasonal, injectable, preservative free09/11/2014MMR05/03/2000,08/01/1996Meningococcal TDU6X5904/03/2007OPV08/01/1996,1995,1995Tdap2014 Family History Medical HistoryRelationNameCommentsAnemiaFatherColon cancerFatherCancerMaternal GrandfatherbutchHypertensionMaternal GrandfatherbutchBreast cancerMaternal GrandmotherHypertensionMotherdarleneColon cancerPaternal GrandfatherRelationName StatusCommentsFatherDeceasedMaternal GrandfatherbutchMaternal GrandmotherMother darleneAlivePaternal GrandfatherPaternal GrandmotherAlive Social History Tobacco UseTypesPacks/DayYears UsedDateSmoking Tobacco: NeverSmokeless Tobacco: Never Tobacco Cessation:Counseling Given: Not Answered Alcohol UseStandard Drinks/WeekCommentsNever0 (1 standard drink = 0.6 oz pure alcohol)caffeine: 1-2 cups per day, coffee and csbV0810 Health LiteracyAnswer Date RecordedHow often do you [...] relatives?Once a week12/29/2024How often do you attend hoahaoism or gnosticism services?Patient vxcizzto61/03/2025Do you belong to any clubs or organizations such as hoahaoism groups, unions, fraternal or athletic leodan ups, or school groups?No12/29/2024How often do you attend meetings of the clubs or organizations you belong to?Patient tdzkxxek52/03/2025re you , , , , never , [...] RecordedPatient Health Questionnaire-2 Score0 07/30/2025[facility] [place] [facility] - Occupational Stress QuestionnaireAnswerDate RecordedDo you feel stress - tense, restless, nervous, or anxious, or unable to sleep at night because yourmind is troubled all the time - these days?Only a twqrwm6912/29/2024Exercise Vital SignAnswerDate Recorded On average, how many [...] homeless or living in a half-way (including now)?No12/29/2024 EducationAnswerDate RecordedWhat is the highest level of school you have completed or the highest degree you have received?High school mhwqrxbe29/29/2023 Estimated Date of AhxulhkdAottlhxpQye64/03/2026ased on last menstrual period of 02/21/2025Sex and Gender InformationValueDate RecordedSex Assigned at BirthNot on fileLegal FyjBvtkjj46/15/2023 7:18 PM EDTGender IdentityNot on file Sexual OrientationNot on 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 Not on fileNot on fileNot on file Last Filed Vital Signs Vital SignReadingTime TakenCommentsBlood Ptgeklih526/8211 3:04 PM EST Thqzs7908 3:36 PM ARZVrxbbczgtvo69.2 ??C (97.1 ??F)07/30/2025 3:36 PM EDTRespiratory Oonn769612/23/2022 4:16 PM ESTOxygen Xbvfqnhgmq46%07/30/2025 3:36 PM EDTInhaled Oxygen Concentration--Txmgsq40.3 kg (166 lb)09/30/2025 3:04 PM EST Phjgag410.5 cm (5' 2 )07/30/2025 3:36 PM EDTBody Mass Index30.3609 3:36 PM EDT Plan of Treatment DateTypeDepartmentCare Team (Latest Contact Info)Uceoehkjnak25/19/2025 3:30 PM ESTRoutine [facility] [address] [place] [address] Nathan Pop, [address] [place] [address] Health MaintenanceDue DateLast DoneCommentsCOVID-19 Vaccine ( season) 2025Influenza Vaccine (#1)Pap Smear08/18/2027 08/18/2024, 08/15/2023, 06/20/2022, Additional history existsCervical Cancer Stqtnpxvh89/09/2028HPV/Qagpjj5681neumococcal Vaccine: Pediatrics (0 to 5 Years) and At-Risk Patients (6 to 64 Years)Aged OutNo longer eligible based on patient's age to complete this topic Procedures Procedure NamePriorityDate/TimeAssociated DiagnosisCommentsUS OB BPP W NON-GPYXLE2610/03/2025 11:36 AM EST POCT URINALYSIS JEKUDPAQQfdkvee03/05/2025 3:13 PM EST Third trimester ([facility]) US OB BPP W NON-CSIFOV7909/26/2025 2:50 PM EDT US OB BPP W NON-DONLQC7209/19/2025 12:17 PM EDT POCT URINALYSIS CWNEVGINZvkkigb17/22/2025 4:09 PM EDT 29 weeks gestation of ([facility]) Third trimester ([facility]) ALL CBC WITH AUTO WEOVPklwibm75/09/2025 5:15 PM EDT MHPT ARKYBEKLCRFxhcwha14/09/2025 5:15 PM EDT [facility] ULOZVsmnrgq79/09/2025 5:15 PM EDT SRMCOH PROTHROMBIN TIME INR W/O PRFHGilewaw18/09/2025 5:15 PM EDT [facility] LXXDfbwiec12/09/2025 5:15 PM EDT [facility] CXAUusmvle40/09/2025 5:15 PM EDT ALL URIC MSREDuxhwuf79/09/2025 5:15 PM EDT TBH KIISNJECBQQpviqyj90/09/2025 5:15 PM EDT ALL INEHlmdudp90/09/2025 5:15 PM EDT [facility] URINE T PROTEIN CREAT NZBQDXlxrbhd83/09/2025 5:05 PM EDT POCT URINALYSIS BRLIWNGYWyibzog52/09/2025 4:26 PM EDT 27 weeks gestation of ([facility]) TBH TOTAL PROTEIN 24 HOUR FFMPVRhqahxu01/04/2025 8:00 AM EDT US OB BPP W NON-MVMMUH2208/27/2025 6:02 PM EDT TBH URINE T PROTEIN CREAT RPZQUIxjnrsk28/02/2025 5:50 PM EDT [facility] IGCNbmbmay13/02/2025 5:00 PM EDT C[facility] SMMOCquwogg57/02/2025 5:00 PM EDT SRMCOH PROTHROMBIN TIME INR W/O ZXCZSiyfuez97/02/2025 5:00 PM EDT ALL UFRTceukif76/02/2025 5:00 PM EDT [facility] PHOVolwwdi24/02/2025 5:00 PM EDT ALL URIC JGQTHdzwack25/02/2025 5:00 PM EDT TBH NQMAYXTDDWQnbysny20/02/2025 5:00 PM EDT ALL UJJEvrlvdx32/02/2025 5:00 PM EDT ALL CBC WITH AUTO ZNRCOgjkijb87/02/2025 5:00 PM EDT POCT URINALYSIS WFIFMNHIMoqeele12/02/2025 3:53 PM EDT 26 weeks gestation of ([facility]) URINE CULTURE, QWGYQTAWmkclgx72/30/2025 8:10 AM EDT POCT URINALYSIS HJHICREYSrrwnmz13/17/2025 2:39 PM EDT 24 weeks gestation of ([facility]) Second trimester ([facility]) US OB LIMITED 1+ LVKXUPRQwfnktp57/17/2025 2:22 PM EDT Encounter for follow-up ultrasound of anatomy ([facility]) AFP, SERUM, OPEN SPINA HDAMGAEdcbccz77/20/2025 5:07 PM EDT POCT URINALYSIS GAADYHALMdlizpc29/20/2025 3:50 PM EDT 20 weeks gestation of ([facility]) Second trimester ([facility]) US OB 14+ WEEKS ANATOMY HEXNVldhnrf56/20/2025 3:26 PM EDT Screening, , for anatomic survey ([facility]) PAP XOCEKHzyowyo98/23/2024 12:00 AM EDTTHINPREP PAP AND HPV MRNA E6/E7 W/RFL HPV 16,18/44Gtvvcuz64/09/2023 4:00 PM EDT Well woman exam with routine gynecological exam from Last 3 Months or Most Recently Relevant to Health Maintenance Results * US OB BPP W NON-STRESS (10/03/2025 11:36 AM EST) Only the most recent of4 resultswithin the time period is included. Anatomical RegionLateralityModalityOtherSpecimen (Source)Anatomical Location / LateralityCollection Method / VolumeCollection TimeReceived Time10/03/2025 11:36 AM EST Narrative 10/03/2025 11:38 AM EST [facility] ?[address] ? [place] [address] ? Ultrasound Report ? Signed ? Patient: MCCONEGLY,DRISS M ?MR#: [id number] ?? : 1995 ?Acct:[id number] ?? Age/Sex: 30 / F ?ADM Date: 11/08/25 ?? Loc: US ? Attending Dr: Steph Keane ? Ordering Physician: Steph Keane ?? Date of Service: 10/03/25 ?? Procedure(s): US OB BPP w non-stress ?? Accession Number(s): [id number] ? cc: Steph Keane; Yomaira BELTRAN ? [facility] ? [address] ? [place] [address] ? Patient Name: ?? DRISS GAMA ? MRN: [facility]:[id number] ? date: 1995 ?Sex: F ?? Assigned Patient Location: US ?? Current Patient Location: ? Accession/Order Number: [id number] ?? Exam Date: 10/03/2025 ??10:53 ?Report Date: [...] Dictation Location: RADIO-PC-17 ? Electronically authenticated by: [id number] ??Y ?? Date: 10/03/2025 ??11:36 ? Dictated By: ?Will Faria M.D. ? Signed By: ?10/03/25 1138 ? DD/ 1136 ? TD/TT: ? Purchasing Associate: Procedure Note Radiology, Radiologist, - 10/03/2025 [place] [address] Ultrasound Report Signed Patient: DRISS GAMA MMR#: [id number] : 1995Acct:[id number] Age/Sex: 30 / FADM Date: 10/03/25 Loc: US Attending Dr: Steph Keane Ordering Physician: Steph Keane Date of Service: 10/03/25 Procedure(s): US OB BPP w non-stress Accession Number(s): [id number] cc: Steph Keane; Yomaira BELTRAN The [place] [id number] Patient Name: DRISS GAMA MRN: [facility]:[id number] date: 1995 Sex: F Assigned Patient Location: US Current Patient Location: Accession/Order Number: [id number] Exam Date: 10/03/2025 10:53 Report Date: 10/03/2025 [...] Faria M.D. 10/03/2025 11:36 AM Dictation Location: [email or web address] Electronically authenticated by: [id number] Y Date: :36 Dictated By: Will Faria M.D. Signed By:10/03/25 1138 DD/ 1136 TD/TT: Purchasing Associate: Authorizing ProviderResult TypeResult StatusClintmelissa Keane NPCLINISYNC IMAGING Final Result * POCT [...] Location / LateralityCollection Method / VolumeCollection TimeReceived GigpYtlez99/05/2025 3:13 PM EST Narrative Authorizing ProviderResult TypeResult StatusNatahn Pop DOPOINT OF CARE TEST ENTER/EDIT ORDERABLESFinal Result * (ABNORMAL) TBH CREATININE (09/03/2025 5:15 PM EDT) Only the most recent of2 resultswithin the time period is included. ComponentValueRef RangeTest MethodAnalysis TimePerformed AtPathologist Signature CREATININE0.42(L)0.55 - 1.02 mg/dLTBHTBH EGFR-AF WALLISIAN>60>=60 mL/min/1.73m 2 TBHTBH EGFR-NON AF WALLISIAN>60>=60 mL/min/1.73m 2TBHSpecimen (Source)Anatomical Location / LateralityCollection Method / VolumeCollection TimeReceived Time 09/03/2025 5:15 PM EDT1 5:21 PM EDT Narrative CLINISYNC - 09/03/2025 5:40 PM EDT Authorizing ProviderResult TypeResult StatusCorey Kiesha DOCLINISYNCFinal Result Performing OrganizationAddressCity/State/ZIP CodePhone Number [facility] * SRMCOH PROTHROMBIN TIME INR W/O COUM [...] DOCLINISYNCFinal Result Performing OrganizationAddressCity/State/ZIP CodePhone Number [facility] * (ABNORMAL) MHPT FIBRINOGEN (09/03/2025 5:15 PM EDT)ComponentValueRef RangeTest MethodAnalysis TimePerformed AtPathologist ZfdzcemtcGOHXAFKPAR498(H)200 - 400 mg/dLTBHSpecimen (Source)Anatomical Location / LateralityCollection Method / VolumeCollection TimeReceived Time09/03/2025 5:15 PM EDT1 5:21 PM EDT Narrative [facility] - 09/03/2025 5:45 PM EDT Authorizing ProviderResult TypeResult StatusCorey Kiesha DOCLINISYNCFinal Result Performing OrganizationAddressCity/State/ZIP CodePhone Number [facility] * CCF AST (09/03/2025 5:15 PM EDT) Only the most recent of2 resultswithin the time period is included. ComponentValueRef RangeTest MethodAnalysis TimePerformed AtPathologist Signature ASPARTATE AMINO FWXYYROMZCJ0571 - 37 U/LTBHSpecimen (Source)Anatomical Location / LateralityCollection [...] ComponentValueRef RangeTest MethodAnalysis TimePerformed AtPathologist Signature ALANINE PZGYBEQCXYEHDWYT2947 - 59 U/LTBHSpecimen (Source)Anatomical Location / LateralityCollection Method / VolumeCollection TimeReceived Time09/03/2025 5:15 PM EDT1 5:21 PM EDT Narrative [facility]NC - 09/03/2025 5:40 PM EDT Authorizing ProviderResult TypeResult StatusCorey Kiesha DOCLINISYNCFinal Result Performing OrganizationAddressCity/State/ZIP CodePhone Number CLIN[facility]NC TB * ALL URIC [...] Kiesha DOCLINISYNCFinal Result Performing OrganizationAddressCity/State/ZIP CodePhone Number [facility] * (ABNORMAL) ALL CBC WITH AUTO DIFF [...] - 35.2 g/dLTBHTBH RDW13.611.0 - 15.0 %TBHTBH TZS370744 - 450 10 3/uLTBHTBH MPV9.89.5 - 13.5 [...] Kiesha DOCLINISYNCFinal Result Performing OrganizationAddressCity/State/ZIP CodePhone Number [facility] * ALL BUN (09/03/2025 5:15 PM EDT) Only the most recent of2 resultswithin the time period is included. ComponentValueRef RangeTest MethodAnalysis TimePerformed AtPathologist Signature BLOOD UREA NITROGEN8.07.0 - 18.0 mg/dLTBHSpecimen (Source)Anatomical Location / LateralityCollection Method / VolumeCollection TimeReceived Time09/03/2025 5:15 PM EDT1 5:21 PM EDT Narrative [facility] - 09/03/2025 5:40 PM EDT Authorizing ProviderResult TypeResult StatusCorey Kiesha DOCLINISYNCFinal Result Performing OrganizationAddressCity/State/ZIP CodePhone Number [facility] * (ABNORMAL) TBH URINE T PROTEIN CREAT [...] ProviderResult TypeResult StatusCorepearl Pop DOCLINISYNCFinal Result Performing OrganizationAddRegional Hospital of Scrantonty/State/ZIP CodePhone Number [facility] * (ABNORMAL) TBH TOTAL PROTEIN 24 HOUR URINE (08/29/2025 8:00 AM EDT)Component ValueRef RangeTest MethodAnalysis TimePerformed AtPathologist SignatureTOTAL PROTEIN URINE TPVWOR07.6(H)<=11.9 mg/dLTBHTOTAL VOLUME 24 HOUR NHFDK033xI/24hr TBHTBH TOTAL PROTEIN 24 HOUR EFTIW385.6<=149.1 mg/24hrTBHSpecimen (Source) Anatomical Location / LateralityCollection Method / VolumeCollection Time Received Time08/29/2025 8:00 AM EDT1 10:35 AM EDT Narrative [facility] - 08/29/2025 12:08 PM EDT Authorizing ProviderResult TypeResult StatusGeneric External Data Provider CLINISYNCFinal ResultPerforming OrganizationAddRegional Hospital of Scrantonty/State/ZIP CodePhone Number [facility] * ALL LDH (08/27/2025 5:00 PM EDT)ComponentValueRef RangeTest MethodAnalysis TimePerformed AtPathologist SignatureLACTATE ZCGVALIPTHPJP87798 - 234 U/LTBH Specimen (Source)Anatomical Location / LateralityCollection Method / Volume Collection TimeReceived Time08/27/2025 5:00 PM EDT1 5:01 PM EDT Narrative [facility] - 08/27/2025 5:19 PM EDT Authorizing ProviderResult TypeResult StatusSteph Keane NPCLINISYNCFinal ResultPerforming OrganizationAddressCity/State/ZIP CodePhone Number [facility] * URINE CULTURE, ROUTINE (08/25/2025 8:10 AM EDT)ComponentValueRef RangeTest MethodAnalysis TimePerformed AtPathologist SignatureURINE CULTURE, ROUTINE ??Urine Culture, Routine TBHURINE CULTURE, ROUTINEMixed urogenital floraTBHURINE CULTURE, MWTXJWN97,000- 50,000 colony forming units per mLTBHURINE CULTURE, ROUTINEPerformed at: [facility] HospitalTBHURINE C[facility], [id number] [place], [place] [id number] URINE CULTURE, ROUTINELab Director: Cm Sandoval PhD, Phone: [phone] Specimen (Source)Anatomical Location / LateralityCollection Method / Volume Collection TimeReceived Time08/25/2025 8:10 AM EDT08/25/2025 8:30 AM EDT Narrative [facility] - 08/26/2025 10:07 PM EDT Authorizing ProviderResult TypeResult StatusGeneric External Data ProviderLAB BLOOD ORDERABLESFinal ResultPerforming OrganizationAddressCity/State/ZIP Code Phone Number [facility] * US OB limited 1+ fetuses [...] Alas MD Authorizing ProviderResult TypeResult StatusCorey Kiesha [facility] OB US PROCEDURES Final Result * AFP, SERUM, OPEN SPINA BIFIDA (07/15/2025 5:07 PM EDT)ComponentValueRef Range Test MethodAnalysis TimePerformed AtPathologist SignatureRESULTSReport.TBHTEST RESULTS:*Screen Negative*.TBHGEST. AGE ON COLLECTION DATE20.6. weeksTBHGESTAT. AGE BASED ONLMP.TBHComment: Recalculations are not recommended when gestational dating by LMP and ultrasound are within 10 days. MATERNAL AGE AT EDD30.7. yrTBHRACECaucasian.LDBDEZZXW316. lbsTBHINSULIN DEP DIABETESNo.TBHMULTIPLE GESTATIONNo.TBHAFP VALUE59.2. ng/mLTBHAFP MOM0.95.TBHOSBR RISK 1 [id number].TBHINTERPRETATIONComment.TBHComment: Interpretation: Screen Negative This result is screen [...] Customer Services to discuss available options. ??The [employer] recommends amniocentesis be offered to women age 35 and older. COMMENT:Comment.TBHComment: Amy Ramos, Ph.D., [facility] Director References: Available Upon Request. Multiples Of Median Cutoffs ?For AFP Elevations Hsieh ?? 2.5 ? Black ?2.8 IDD ? 2.0 ? Twins ?4.5 ?Abbreviation Definitions IDD - Insulin Dep Diabetes OSBR - Open Spina Bifida Risk For further inquiries contact Project Manager Genetics Services at [phone]. This test was developed and its performance characteristics determined by [employer]. It has not been cleared or approved by the Food and Drug Administration. Performed at: ??[facility] [address] [place], [place] ??[id number] Applications Engineering Manager: Dona Justin [facility], Phone: ??[phone] Specimen (Source)Anatomical Location / LateralityCollection Method / Volume Collection TimeReceived Time07/15/2025 5:07 PM EDT07/15/2025 5:10 PM EDT Narrative CLINISYNC - 07/18/2025 1:07 AM EDT N N LMP [id number] 2 17 N 1 Y 146 N N N N N White/ Authorizing ProviderResult TypeResult StatusGeneric External Data ProviderLAB BLOOD ORDERABLESFinal ResultPerforming OrganizationAddressCity/State/ZIP Code Phone Number [facility] * US OB 14+ weeks [...] ?? , PHD at 16-Jul-2025 08:07:07 AM [facility] Procedure Note Travis Rueda MD - [...] TRAVIS RUEDA II, MD, PHD 08:07:07 AM [facility] Authorizing ProviderResult TypeResult StatusCorepearl RIDER OB US PROCEDURES Final Result * Pap Smear (08/18/2024 12:00 AM EDT)Specimen (Source)Anatomical Location / LateralityCollection Method / VolumeCollection TimeReceived TimeSwabCervical swab / Unknown Narrative Authorizing ProviderResult TypeResult StatusFazio Nurse [facility] ObLAB CYTOLOGY ORDERABLESFinal ResultPerforming OrganizationAddressCity/State/ZIP CodePhone Number EXTERNAL LAB * THINPREP PAP AND HPV MRNA E6/E7 W/RFL HPV 16,18/45 (09/03/2023 4:00 PM EDT) Narrative Authorizing ProviderResult TypeResult StatusAmy [place] PALAB BLOOD ORDERABLES Final ResultPerforming OrganizationAddressCity/State/ZIP CodePhone Number EXTERNAL LAB from Last 3 Months or Most Recently Relevant to Health Maintenance Insurance Care Teams Team MemberRelationshipSpecialtyStart DateEnd Date Eliceo Beltran DO [address] [place] [address] [facility] - [facility]02/14/24 Eliceo Beltran DO [address] [place] [address] PCP - Medical [facility]07/27/2412
--- OUTSIDE RECORDS SUMMARY | 2025-10-10 10:24 | XMS_ITS | Encounter Summary ---
Author Organization [facility] Address [address] [place] [address] Care Team Providers Care Costume Design Teacher Name Role Phone Eliceo Beltran DO Primary Care Provider [phone] CharlottegeovaniEliceo kauffman Unavailable [phone] Encounter Details DateTypeDepartmentCare Team (Latest Contact Info)Msuhdtmhqqi07/01/2025Clinisync Result Encounter [facility] External Department Unsolicited Steph Keane, DEVYN [address] [facility] [place] [address] Social History Tobacco UseTypesPacks/DayYears UsedDateSmoking Tobacco: NeverSmokeless Tobacco: NeverAlcohol UseStandard Drinks/WeekCommentsNever0 (1 standard drink = 0.6 oz pure alcohol)caffeine: 1-2 cups per day, coffee and [id number] Health Literacy AnswerDate RecordedHow often do you [...] week12/29/2024How often do you attend islam or jainism services?Patient /03/2025Do you belong to any clubs or organizations such as islam groups, unions, [employer] or athletic leodan ups, or school groups?No12/29/2024How often do you attend meetings of the clubs or organizations you belong to?Patient ltzwxbzo50/03/2025re you , , , , never , [...] hard at all12/29/2024PHQ-2AnswerDate RecordedPatient Health Questionnaire-2 Score0 07/30/2025[facility] [place] [facility] - Occupational Stress QuestionnaireAnswerDate RecordedDo you feel stress - tense, restless, nervous, or anxious, or unable to sleep at night because yourmind is troubled all the time - these days?Only a zawrgq7912/29/2024Exercise Vital SignAnswerDate Recorded On average, how many [...] place to sleep or slept in [facility] (including now)?No09/19/2023Housing Stability Vital SignAnswerDate RecordedIn the last 12 months, was there a time when you were not able to pay the mortgage or rent on time?No12/29/2024Number of Times Moved in the Last YearNot on file12/29/2024t any time in the past 12 months, were you homeless or living in a detention (including now)?No12/29/2024 EducationAnswerDate RecordedWhat is the highest level of school you have completed or the highest degree you have received?High school iiahmnjd39/29/2023 Estimated Date of RftqaanyWujoxmkfQjw55/03/2026ased on last menstrual period of 02/21/2025Sex and Gender InformationValueDate RecordedSex Assigned at BirthNot on fileLegal QqtXdddpe35/15/2023 7:18 PM EDTGender IdentityNot on file Sexual OrientationNot on 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 Not on fileNot on fileNot on filedocumented as of this encounter Plan of Treatment DateTypeDepartmentCare Team (Latest Contact Info)Ntljqxnonrv74/19/2025 3:30 PM ESTRoutine [facility] [place] [facility] [address] [place] [phone] Nathan Pop, DO [address] [facility] [address] Armstrong, [facility]11 documented as of this encounter Procedures Procedure NamePriorityDate/TimeAssociated DiagnosisCommentsUS OB BPP W NON-IAOKUR2409/26/2025 2:50 PM EDT documented in this encounter Results * US OB BPP W NON-STRESS (09/26/2025 2:50 PM EDT)Anatomical Region LateralityModalityOtherSpecimen (Source)Anatomical Location / Laterality Collection Method / VolumeCollection TimeReceived Time09/26/2025 2:50 PM EDT Narrative 09/26/2025 2:52 PM EDT [facility] ?[address] ? [place] [address] ? Ultrasound Report ? Signed ? Patient: DRISS GAMA ?MR#: [id number] ?? : 1995 ?Acct:[id number] ?? Age/Sex: 30 / F ?ADM Date: 09/26/25 ?? Loc: US ? Attending Dr: tSeph Keane ? Ordering Physician: Steph Keane ?? Date of Service: 09/26/25 ?? Procedure(s): US OB BPP w non-stress ?? Accession Number(s): [id number] ? cc: Steph Keane; Yomaira BELTRAN ? [facility] ? [address] ? [place] [address] ? Patient Name: ?? DRISS Daniel GAMA ? MRN: [id number] ? date: 1995 ?Sex: F ?? Assigned Patient Location: US ?? Current Patient Location: ? Accession/Order Number: [id number] ?? Exam Date: 09/26/2025 ??11:50 ?Report Date: [...] Dictation Location: RADIO-PC-29 ? Electronically authenticated by: [id number] ??Y ?? Date: 09/26/2025 ??14:50 ? Dictated By: ?Chu Amaya M.D. ? Signed By: ?09/26/25 1452 ? DD/ 1450 ? TD/TT: ? Processor Inspector: Procedure Note Radiology, Radiologist, MD - 09/26/2025 [place] [address] Ultrasound Report Signed Patient: DRISS GAMA MMR#: [id number] : 1995Acct:[id number] Age/Sex: 30 / FADM Date: 09/26/25 Loc: US Attending Dr: Steph Keane Ordering Physician: Steph Keane Date of Service: 09/26/25 Procedure(s): US OB BPP w non-stress Accession Number(s): [id number] cc: Steph Keane; Yomaira BELTRAN The [address] [address] Patient Name: DRISS GAMA MRN: [id number] date: 1995 Sex: F Assigned Patient Location: US Current Patient Location: Accession/Order Number: [id number] Exam Date: 09/26/2025 11:50 Report Date: 09/26/2025 14:50 At the request of: STEPH KEANE Procedure: US OB BPP w non-stress Ultrasound biophysical profile INDICATION: -induced hypertension COMPARISON: 09/19/2025 FINDINGS IMPRESSION: Cephalic position. 8 out of 8 score biophysicalprofile. LEONEL 11.6 cm. heart 129 bpm Impression dictated by: Chu Amaya M.D. 09/26/2025 2:50 PM Dictation Location: [employer] Electronically authenticated by: [id number] Y Date: 4:50 Dictated By: Chu Amaya M.D. Signed By:09/26/25 1452 DD/ 1450 TD/TT: Processor Inspector: Authorizing ProviderResult TypeResult StatusSteph Keane NPCLINISYNC IMAGING Final Result documented in this encounter Visit Diagnoses Not on filedocumented in this encounter Care Teams Team MemberRelationshipSpecialtyStart DateEnd Date Eliceo Beltran DO [address] [place] [address] PCP - GeneralFamily Medicine02/14/24 Eliceo Beltran DO [address] [place] [address] PCP - Medical [employer]/documented as of this encounter
--- OUTSIDE RECORDS SUMMARY | 2025-10-10 10:24 | XMS_ITS | Encounter Summary ---
Author Organization [facility] Address [address] [place] [address] Care Team Providers Care Faith Doctor Name Role Phone Eliceo Beltran DO Primary Care Provider [phone] CharlottegeovaniEliceo kauffman Unavailable [phone] Encounter Details DateTypeDepartmentCare Team (Latest Contact Info)Dquqjutyjyc99/08/2025Clinisync Result Encounter [facility] External Department Unsolicited Steph Keane, DEVYN [address] [facility] [place] [address] Social History Tobacco UseTypesPacks/DayYears UsedDateSmoking Tobacco: NeverSmokeless Tobacco: NeverAlcohol UseStandard Drinks/WeekCommentsNever0 (1 standard drink = 0.6 oz pure alcohol)caffeine: 1-2 cups per day, coffee and ljhW2226 Health Literacy AnswerDate RecordedHow often do you [...] week12/29/2024How often do you attend gnosticist or christianity services?Patient waeooktp91/03/2025Do you belong to any clubs or organizations such as gnosticist groups, unions, [employer] or athletic leodan ups, or school groups?No12/29/2024How often do you attend meetings of the clubs or organizations you belong to?Patient vyzmxehb89/03/2025re you , , , , never , [...] RecordedPatient Health Questionnaire-2 Score0 07/30/2025[facility] [place] of Occupational Health - Occupational Stress QuestionnaireAnswerDate RecordedDo you feel stress - tense, restless, nervous, or anxious, or unable to sleep at night because yourmind is troubled all the time - these days?Only a pcrybc6912/29/2024Exercise Vital SignAnswerDate Recorded On average, how many [...] the highest degree you have received?High school shtwqupr06/29/2023 Estimated Date of BptunjvqNgdulkfoAmx32/03/2026ased on last menstrual period of 02/21/2025Sex and Gender InformationValueDate RecordedSex Assigned at BirthNot on fileLegal DofFilgjx77/15/2023 7:18 PM EDTGender IdentityNot on file Sexual OrientationNot on 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 Not on fileNot on fileNot on filedocumented as of this encounter Plan of Treatment DateTypeDepartmentCare Team (Latest Contact Info)Ladgcnqaedm02/19/2025 3:30 PM ESTRoutine [facility] [place] [facility] [address] [facility] [place] [phone] Nathan Pop, DO [address] [facility] [address] [place], [facility] documented as of this encounter Procedures Procedure NamePriorityDate/TimeAssociated DiagnosisCommentsUS OB BPP W NON-MTDWJO8110/03/2025 11:36 AM EST documented in this encounter Results * US OB BPP W NON-STRESS (10/03/2025 11:36 AM EST)Anatomical Region LateralityModalityOtherSpecimen (Source)Anatomical Location / Laterality Collection Method / VolumeCollection TimeReceived Time10/03/2025 11:36 AM EST Narrative 10/03/2025 11:38 AM EST [facility] ?[address] ? [place] [address] ? Ultrasound Report ? Signed ? Patient: DRISS GAMA ?MR#: [id number] ?? : 1995 ?Acct:[id number] ?? Age/Sex: 30 / F ?ADM Date: 10/03/25 ?? Loc: US ? Attending Dr: Steph Keane ? Ordering Physician: Steph Keane ?? Date of Service: 10/03/25 ?? Procedure(s): US OB BPP w non-stress ?? Accession Number(s): [id number] ? cc: Steph Keane; Yomaira BELTRAN ? [facility] ? [address] ? [place] [address] ? Patient Name: ?? DRISS Sanchez JAYY ? MRN: [id number] ? date: 1995 ?Sex: F ?? Assigned Patient Location: US ?? Current Patient Location: ? Accession/Order Number: [id number] ?? Exam Date: 10/03/2025 ??10:53 ?Report Date: [...] Dictation Location: RADIO-PC-17 ? Electronically authenticated by: [id number] ??Y ?? Date: 10/03/2025 ??11:36 ? Dictated By: ?Will Faria M.D. ? Signed By: ?10/03/25 1138 ? DD/ 1136 ? TD/TT: ? Archeology Faculty Member: Procedure Note Radiology, Radiologist, - 10/03/2025 [place] [address] Ultrasound Report Signed Patient: DRISS GAMA MMR#: [id number] : 1995Acct:[id number] Age/Sex: 30 / FADM Date: 10/03/25 Loc: US Attending Dr: Steph Keane Ordering Physician: Steph Keane Date of Service: 10/03/25 Procedure(s): US OB BPP w non-stress Accession Number(s): [id number] cc: Steph Keane; Yomaira BELTRAN The [address] [address] Patient Name: DRISS GAMA MRN: [id number] date: 1995 Sex: F Assigned Patient Location: US Current Patient Location: Accession/Order Number: [id number] Exam Date: 10/03/2025 10:53 Report Date: 10/03/2025 [...] Faria M.D. 10/03/2025 11:36 AM Dictation Location: [facility] Electronically authenticated by: [id number] Y Date: 1:36 Dictated By: Will Faria M.D. Signed By:10/03/25 1138 DD/ 1136 TD/TT: Archeology Faculty Member: Authorizing ProviderResult TypeResult StatusClintmelissa Lakhwinder NPCLINISYNC IMAGING Final Result documented in this encounter Visit Diagnoses Not on filedocumented in this encounter Care Teams Team MemberRelationshipSpecialtyStart DateEnd Date Eliceo Beltran DO [address] [place] [address] PCP - GeneralFamily Medicine02/14/24 Eliceo Beltran DO [address] [place] [address] PCP - Medical [employer]/documented as of this encounter
--- OUTSIDE RECORDS SUMMARY | 2025-10-10 10:25 | XMS_ITS | Encounter Summary ---
Author Organization [facility] tem Address [id number] [address] [place] [address] Care Team Providers Care Cloth Winding Supervisor Name Role Phone Cruz Rodríguez MD Primary Care Provider [phone] Encounter Details DateTypeDepartmentCare Team (Latest Contact Info)Wzaqlsufujy57/10/2025Telephone Maternal- Medicine at [facility] [address] [facility] [place] [phone] Anjana Davalos RN Social History Tobacco UseTypesPacks/DayYears [...] or more drinks on one occasion?Never5ChildcareAnswer Date KcbtwmqlDvutvnlddQtcywhv95/13/2019EmploymentAnswerDate RecordedEmployment Xhgxnah3805/08/2019Hunger ScreeningAnswerDate RecordedWithin the past 12 months we worried whether our food would run out before we got money to buy more.Never True09/10/2025Within the past 12 months the food we bought just didn't last and we didn't have money to get more.Never True09/10/2025Purpose - LifeAnswerDate RecordedPurpose and direction in wnydJosvjxj47/11/2021Estimated Date of DfggftbwPdldfpwxRcg28/03/2026Based on last menstrual period of 02/21/2025 (Exact Date)Sex and Gender InformationValueDate RecordedSex Assigned at BirthNot on fileLegal ZndFmkaoz63/07/2019 2:55 PM ESTGender IdentityNot on fileSexual OrientationNot on filedocumented as of this encounter Miscellaneous Notes * Telephone Encounter - Anjana Davalos RN - 10/05/2025 2:39 PM EST Left message for patient to send in blood sugar logs prior to video visit toady in [facility] at 3 PM. Also, Instructed patient to contact [facility] if unable to keep appointment today at [facility], then to call at [phone] option 1 to reschedule. documented in this encounter Plan of Treatment DateTypeDepartmentCare Team (Latest Contact Info)Lhvrnrbagcl58/03/2025 11:00 AM ESTAppointment Maternal Medicine [place] [address] [place] [address] 11/03/2025 2:30 PM ESTOffice Visit Maternal- Medicine at [facility] [address] [place] [address] Kayleigh Rizzo PA-C [address] [address] documented as of this encounter Visit Diagnoses Diagnosis Insulin controlled gestational diabetes mellitus (GDM) in second trimester documented in this encounter Care Teams Team MemberRelationshipSpecialtyStart DateEnd Date Cruz Rodríguez MD [address] [place] [address] PCP - GeneralFamily Medicine12/02/18documented as of this encounter
--- OUTSIDE RECORDS SUMMARY | 2025-10-10 10:25 | XMS_ITS | Encounter Summary ---
Author Organization [employer] tem Address [id number] [address] [place] [address] Care Team Providers Care Drapery Supervisor Name Role Phone Cruz Rodríguez MD Primary Care Provider [phone] Encounter Details DateTypeDepartmentCare Team (Latest Contact Info)Jyscvpgcsfl55/09/2025Travel Social History Tobacco UseTypesPacks/DayYears UsedDateSmoking Tobacco: NeverSmokeless Tobacco: NeverAlcohol UseStandard Drinks/WeekCommentsNo0 (1 standard drink = 0.6 oz pure alcohol)AUDIT-CAnswerDate RecordedQ1: How often do you have a drink containing alcohol?Never09/10/2025Q2: How many drinks containing alcohol do you have on a typical day when you are drinking?Patient does not drink09/10/2025Q3: How often do you have six or more drinks on one occasion?Never09/10/2025hildcareAnswer Date MdysvyfvLfwlpmfyfKlwqepb64/13/2019EmploymentAnswerDate RecordedEmployment Uqvqmbb0105/08/2019Hunger ScreeningAnswerDate RecordedWithin the past 12 months we worried whether our food would run out before we got money to buy more.Never True09/10/2025Within the past 12 months the food we bought just didn't last and we didn't have money to get more.Never True09/10/2025Purpose - LifeAnswerDate RecordedPurpose and direction in uhzmQacotvy54/11/2021Estimated Date of IyostiwkUzknljtnSld41/03/2026Based on last menstrual period of 02/21/2025 (Exact Date)Sex and Gender InformationValueDate RecordedSex Assigned at BirthNot on fileLegal TzcJmmlcz77/07/2019 2:55 PM ESTGender IdentityNot on fileSexual OrientationNot on filedocumented as of this encounter Plan of Treatment DateTypeDepartmentCare Team (Latest Contact Info)Mhtmathcgww24/03/2025 11:00 AM ESTAppointment Maternal Medicine [place] [address] [address] [place] [address] 11/03/2025 2:30 PM ESTOffice Visit Maternal- Medicine at [facility] [address] [place] [phone] Kayleigh Rizzo, PA-C [address] [address] documented as of this encounter Visit Diagnoses Not on filedocumented in this encounter Care Teams Team MemberRelationshipSpecialtyStart DateEnd Date Cruz Rodríguez MD [address] [place] [address] PCP - GeneralFamily Medicine12/02/18documented as of this encounter
--- OUTSIDE RECORDS SUMMARY | 2025-10-10 10:25 | XMS_ITS | Encounter Summary ---
Author Organization [employer] tem Address [facility] [address] [place] [address] Care Team Providers Care Satellite Communications Operator Name Role Phone Cruz Rodríguez MD Primary Care Provider [phone] Encounter Details DateTypeDepartmentCare Team (Latest Contact Info)Iuzsobrgxsl54/11/2025Travel Social History Tobacco UseTypesPacks/DayYears UsedDateSmoking Tobacco: NeverSmokeless Tobacco: NeverAlcohol UseStandard Drinks/WeekCommentsNo0 (1 standard drink = 0.6 oz pure alcohol)AUDIT-CAnswerDate RecordedQ1: How often do you have a drink containing alcohol?Never09/10/2025Q2: How many drinks containing alcohol do you have on a typical day when you are drinking?Patient does not drink09/10/2025Q3: How often do you have six or more drinks on one occasion?Never09/10/2025hildcareAnswer Date FetrgxmfHyljepnbsQdwtqkf33/13/2019EmploymentAnswerDate RecordedEmployment Qfesttu3305/08/2019Hunger ScreeningAnswerDate RecordedWithin the past 12 months we worried whether our food would run out before we got money to buy more.Never True09/10/2025Within the past 12 months the food we bought just didn't last and we didn't have money to get more.Never True09/10/2025Purpose - LifeAnswerDate RecordedPurpose and direction in fphsZddsgej58/11/2021Estimated Date of KsbpjnhqZhjahdqoUmc50/03/2026Based on last menstrual period of 02/21/2025 (Exact Date)Sex and Gender InformationValueDate RecordedSex Assigned at BirthNot on fileLegal NsaOkamwe10/07/2019 2:55 PM ESTGender IdentityNot on fileSexual OrientationNot on filedocumented as of this encounter Plan of Treatment DateTypeDepartmentCare Team (Latest Contact Info)Pjazmxjvuuq59/03/2025 11:00 AM ESTAppointment Maternal Medicine [place] [address] [facility] [address] [address] [place] [address] 11/03/2025 2:30 PM ESTOffice Visit Maternal- Medicine at [facility] [address] [place] [phone] Kayleigh Rizzo, PA-C [address] [address] documented as of this encounter Visit Diagnoses Not on filedocumented in this encounter Care Teams Team MemberRelationshipSpecialtyStart DateEnd Date Cruz Rodríguez MD [address] [place] [address] PCP - GeneralFamily Medicine12/02/18documented as of this encounter
--- OUTSIDE RECORDS SUMMARY | 2025-10-10 10:26 | XMS_ITS | Encounter Summary ---
Author Organization [facility] tem Address [facility] [address] [place] [address] Care Team Providers Care Lead Coater Name Role Phone Cruz Rodríguez MD Primary Care Provider [phone] Encounter Details DateTypeDepartmentCare Team (Latest Contact Info)Wbxdaqxpomx42/03/2025Orders Only Maternal- Medicine at [facility] [address] [place] [address] Kayleigh Rizzo, PAAlbinC [address] [address] Essential hypertension affecting in third trimester Social [...] or more drinks on one occasion?Never5ChildcareAnswer Date ZfrlidwgRrfezssffBvomauh48/13/2019EmploymentAnswerDate RecordedEmployment Paarphu0005/08/2019Hunger ScreeningAnswerDate RecordedWithin the past 12 months we worried whether our food would run out before we got money to buy more.Never True09/10/2025Within the past 12 months the food we bought just didn't last and we didn't have money to get more.Never True09/10/2025Purpose - LifeAnswerDate RecordedPurpose and direction in byadNjvdnyc46/11/2021Estimated Date of BttzuqquWcinnjijZyl54/03/2026Based on last menstrual period of 02/21/2025 (Exact Date)Sex and Gender InformationValueDate RecordedSex Assigned at BirthNot on fileLegal IhvWeasqx63/07/2019 2:55 PM ESTGender IdentityNot on fileSexual OrientationNot on filedocumented as of this encounter Plan of Treatment DateTypeDepartmentCare Team (Latest Contact Info)Fpprrudcmig2025 11:00 AM ESTAppointment Maternal Medicine [address] [place] [phone] 11/03/2025 2:30 PM ESTOffice Visit Maternal- Medicine at [facility] [address] [place] [address] Kayleigh Rizzo, PAAlbinC [address] [address] documented as of this encounter Visit Diagnoses Diagnosis Essential hypertension affecting in third trimester documented in this encounter Care Teams Team MemberRelationshipSpecialtyStart DateEnd Date Cruz Rodríguez MD [address] [place] [address] PCP - GeneralFamily Medicine12/02/18documented as of this encounter
--- OUTSIDE RECORDS SUMMARY | 2025-10-10 10:26 | XMS_ITS | Encounter Summary ---
Author Organization [facility] tem Address [facility] [id number] [address] [place] [address] Care Team Providers Care Durable Medical Equipment Technician Name Role Phone Cruz Rodríguez MD Primary Care Provider [phone] Encounter Details DateTypeDepartmentCare Team (Latest Contact Info)Vggzbccypiw26/03/2025Telephone Maternal- Medicine at [facility] [address] [facility] [place] [address] Cha Harris, DIALLO Social History Tobacco UseTypesPacks/DayYears [...] or more drinks on one occasion?Never5ChildcareAnswer Date YbmdqcvrAdmqpdumjTjodjzu42/13/2019EmploymentAnswerDate RecordedEmployment Ozkaiwa9305/08/2019Hunger ScreeningAnswerDate RecordedWithin the past 12 months we worried whether our food would run out before we got money to buy more.Never True09/10/2025Within the past 12 months the food we bought just didn't last and we didn't have money to get more.Never True09/10/2025Purpose - LifeAnswerDate RecordedPurpose and direction in mebzByldszi17/11/2021Estimated Date of FjdhvumjDiwtetqjMpk53/03/2026Based on last menstrual period of 02/21/2025 (Exact Date)Sex and Gender InformationValueDate RecordedSex Assigned at BirthNot on fileLegal PnlQkgnlo94/07/2019 2:55 PM ESTGender IdentityNot on fileSexual OrientationNot [...] Plan of Treatment DateTypeDepartmentCare Team (Latest Contact Info)Hdwznwriert93/03/2025 11:00 AM ESTAppointment Maternal Medicine [place] [address] [address] 11/03/2025 2:30 PM ESTOffice Visit Maternal- Medicine at [facility] [address] [place] [address] Kayleigh Rizzo PA-C [address] [address] documented as of this encounter Visit Diagnoses Diagnosis Insulin controlled gestational diabetes mellitus (GDM) in second trimester documented in this encounter Care Teams Team MemberRelationshipSpecialtyStart DateEnd Date Cruz Rodríguez MD [address] [place] [address] PCP - GeneralFamily Medicine12/02/18documented as of this encounter
--- OUTSIDE RECORDS SUMMARY | 2025-10-10 10:26 | XMS_ITS | Clinical Summary ---
Author Organization [employer] tem Address [facility] [id number] [address] [place] [address] Care Team Providers Care Cloud Infrastructure Architect Name Role Phone Cruz Rodríguez MD Primary Care Provider [phone] Allergies No known active allergies Medications MedicationSigDispense [...] units subQ at bedtime. 15 mL 5Active blood sugar diagnostic (glucose blood) strip [...] ProblemNoted DateDiagnosed DateEssential hypertension affecting in third phuvcbjkk30/10/2025Insulin controlled gestational diabetes mellitus (GDM) in third goiistaxr33/26/2025Estimated Date of DeliveryCommentsYes 6Based on last menstrual period of 02/21/2025 (Exact Date) Encounters DateTypeDepartmentCare RrsdWddqrjfcbuh43/14/2025Orders Only Maternal- Medicine at [address] [address] Zora Samuels, DIALLO Essential hypertension affecting in third trimester (Primary Dx); Insulin controlled gestational diabetes mellitus (GDM) in third trimester 10/08/2025Orders Only Maternal Medicine [place] [address] [facility] [address] [place] [address] Danae Ramirez, DIALLO Insulin controlled gestational diabetes mellitus (GDM) in third trimester (Primary Dx); Essential hypertension affecting in third trimester; Encounter for follow-up ultrasound of anatomy; History of pre-eclampsia in prior , currently ; Hx of delivery, currently , second uuibvfhuo77/11/2025 2:30 PM ESTTelemedicine Maternal- Medicine at [address] [place] [address] Kayleigh Rizzo, PA-C Insulin controlled gestational diabetes mellitus (GDM) in third trimester (Primary Dx); Essential hypertension affecting in third cyzqtvhpo30/11/2025Travel 10/05/2025Telephone Maternal- Medicine at [facility] [address] [place] [address] Anjana Davalos RN 10/04/20255006Rlwylz50/03/2025Telephone Maternal- Medicine at [facility] [address] [facility] [place] [address] Cha Harris, DIALLO 09/28/2025Orders Only Maternal- Medicine at [facility] [address] [place] [facility] [place] [address] Kayleigh Rizzo, PA-C Essential hypertension affecting in third qeznmctyy64/27/2025Telephone Maternal- Medicine at [facility] [address] [place] [facility] [place] [address] Verito Gudino LD 09/21/2025Remote Patient Monitoring Maternal- Medicine at [facility] [address] [place] [address] Kayleigh Rizzo, PA-C Insulin controlled gestational diabetes mellitus (GDM) in third trimester (Primary Dx); Essential hypertension affecting in third xxujlvryn09/23/2025Orders Only Maternal- Medicine at [facility] [address] [place] [address] Camila Arciniega, COMPENSATION AGENT-CNM Essential hypertension affecting in third /22/2025Telephone Maternal- Medicine at [facility] [address] [place] [address] Cha Harris, DIALLO 09/15/2025Orders Only Maternal- Medicine at [facility] [address] [place] [address] Kayleigh Rizzo, FORREST Essential hypertension affecting in third vvpiffqux78/16/2025 11:00 AM EDTTelemedicine Maternal Medicine [place] [address] [facility] [address] [place] [address] Madhuri Monroy MD 28 weeks gestation of (Primary Dx); Insulin controlled gestational diabetes mellitus (GDM) in second trimester; Essential hypertension affecting in third nzptovfkn54/16/2025Orders Only Maternal- Medicine at [facility] [address] [place] [address] Zora Samuels RN Essential hypertension affecting in third trimester (Primary Dx); Insulin controlled gestational diabetes mellitus (GDM) in second trimester; Encounter for follow-up ultrasound of scjmkte3809/10/20255704Xvvfwl55/10/2025 3:00 PM EDTOffice Visit Maternal- Medicine at [facility] [address] [place] [address] Jean Carlos Pina MD Diet controlled gestational diabetes mellitus (GDM) in second trimester (Primary Dx); Essential hypertension affecting in third junkvvxxf75/08/2025Travel 09/01/2025Telephone Maternal- Medicine at [facility] [address] [place] [address] Cha Harris RN 08/24/2025 1:30 PM EDTSupport Visit Maternal- Medicine at [facility] [address] [place] [address] Teena Sarmiento RN Kerline Steiner RD Gestational diabetes mellitus (GDM) in second trimester, gestational diabetes method of control inmmybrtals39/28/1648Vrrlas09/27/1660Qiqoqg86/26/2025bstract Maternal- Medicine at [facility] [address] [place] [address] External, Scanning Provider 08/19/2025Orders Only Maternal- Medicine at [facility] [address] [place] [address] Ref Prov, Not In System 08/18/2025bstract Maternal- Medicine at [facility] [address] [place] [address] Madhuri Monroy MD 08/18/2025Orders Only Maternal- Medicine at [facility] [address] [place] [address] Khalida Garrett RN History of pre-eclampsia in [...] or more drinks on one occasion?Never5ChildcareAnswer Date ShgkfxbgZqgtevvvdUvhvdty88/13/2019EmploymentAnswerDate RecordedEmployment Bntvmfj9005/08/2019Hunger ScreeningAnswerDate RecordedWithin the past 12 months we worried whether our food would run out before we got money to buy more.Never True09/10/2025Within the past 12 months the food we bought just didn't last and we didn't have money to get more.Never True10/16/2025Purpose - LifeAnswerDate RecordedPurpose and direction in cupnIjodmjl48/11/2021Estimated Date of QaoeozxyBjjbejobLfr65/03/2026Based on last menstrual period of 02/21/2025 (Exact Date)Sex and Gender InformationValueDate RecordedSex Assigned at BirthNot on fileLegal SemRjwanj17/07/2019 2:55 PM ESTGender IdentityNot on fileSexual OrientationNot on file Last Filed Vital Signs Vital SignReadingTime TakenCommentsBlood Kwlxnyxw846/801 10:34 AM EDT Ybhtp87745/10/2025 2:48 PM EDTTemperature--Respiratory Jhrj390612/10/2018 11:10 AM ESTOxygen Ywipmnqtob63%12/10/2018 11:10 AM ESTInhaled Oxygen Concentration-- Mpybhn34.6 kg (160 lb)09/10/2025 10:34 AM QUDMdzsoq587.5 cm (5' 2.01 )09/04/2025 2:48 PM EDTBody Mass Index29.261 2:48 PM EDT Plan of Treatment DateTypeDepartmentCare Team (Latest Contact Info)Azmmnyukxeq92/03/2025 11:00 AM ESTAppointment Maternal Medicine [address] [place] [address] 11/03/2025 2:30 PM ESTOffice Visit Maternal- Medicine at [facility] [address] [place] [address] Kayleigh Rizzo, PAAlbinC [address] [address] Health MaintenanceDue DateLast DoneCommentsDepression Enzqgkztq63/08/2007dult BMI Follow Up Plan2013DTaP,Tdap and Td Vaccines (7 - Td or Tdap)2024 2014, 05/03/2000, 12/29/1997, Additional history existsInfluenza Vaccine 51RSV ( or age 60+ yrs) (1 - Risk 1-dose series)10/03/2025dult BMI Uwpycwtgw82Tobacco Screening Pap Smear Medical Devices Not on file Procedures Procedure NamePriorityDate/TimeAssociated DiagnosisCommentsUS MFM OB FOLLOW-UP, 1 CBCBWWqreuak39/13/2025 8:55 AM EST Essential hypertension affecting in third trimester Insulin controlled gestational diabetes mellitus (GDM) in second trimester Encounter for follow-up ultrasound of anatomy US MFM COMPREHENSIVE ANATOMIC LJHVXNOhxykwg95/16/2025 10:56 AM EDT History of pre-eclampsia in prior , currently GLUCOSE TOLERANCE, 3 WYUYDEvatstr60/20/2025 GLUCOSE TOLERANCE, RHDNTTFLsmspov83/20/2025 GLUCOSE TOLERANCE, 1 AUNJUzmctxj46/20/2025 SECOND HOUR GLUCOSE TOLERANCE 100 GM UBGEEajwaoi96/20/2025 ULTRASOUND MCVRVNStocuxs84/17/2025 3:39 PM EDTGLU 1H POST 50G LOADRoutine 08/12/2025 ULTRASOUND KEQQPFLwjmmlm21/20/2025 3:43 PM EDTAFP SINGLE MARKER SCRN, MATERNAL, GSYKRMwmiznc29/20/2025 10:17 AM EDTfrom Last 3 Months Results * US MFM OB FOLLOW-UP, 1 FETUS (10/08/2025 8:55 AM EST) Only the most recent of2 resultswithin the time period is included. Anatomical RegionLateralityModalityOB-GYNUltrasoundSpecimen (Source)Anatomical Location / LateralityCollection Method / VolumeCollection TimeReceived Time 10/08/2025 9:08 AM EST Narrative 10/08/2025 11:56 AM EST NAME: ??JAYY REYNAGA : 1995 SEX: F Accession Number: [id number] ORDERING PHYSICIAN: MADHURI MONROY REFERRING PHYSICIAN: JONY MEJÍA Coding Procedures ? 23462: Ultrasound, uterus, real time with image documentation, follow up,transabdominal ? approach per fetus Indication Screening for follow-up survey, Gestational diabetes, Chronic hypertension affecting , History of prior with pre-eclampsia , History of prior with delivery , Previous surgery to cervix -(D&C). History OB History ? 2. Para 1 ? [id number] Current Cell free DNA ?Low Risk analysis Maternal Assessment Physical Exam ??Height 157 cm, 5 ft 2 in. Weight 76 kg, 168 lb. Initial weight 64 kg, 140 lb. BMI 30.73 kg/m??. Initial ? BMI 25.61 kg/m??. Weight gain 13 kg, 28 lb Method Transabdominal ultrasound examination. View: Suboptimal view: limited by position. Hsieh . Number of fetuses: 1 Dating LMP on: ?02/21/2025 GA by LMP ?32 w + 5 d WEI by LMP: ?11/28/2025 Previous Ultrasound on: ?05/01/2025 Type of prior assessment: ?CRL U/S measurement at prior assessment date ? 25.2 mm GA by previous U/S ? 32 w + 1 d WEI by previous Ultrasound: ?12/02/2025 Ultrasound examination on: ? 10/08/2025 GA by U/S based upon: ??AC, BPD, Femur, HC GA by U/S ?33 w + 5 d WEI by U/S: ?11/21/2025 Assigned: ?based on the LMP, selected on 09/10/2025 Assigned GA (weeks days) ? 32 w + 5 d Assigned WEI: ??11/28/2025 General Evaluation Cardiac activity Present. FHR 141 bpm. Presentation: cephalic Placenta: Placental site: anterior, previously documented away from cervical os Umbilical cord: Cord vessels: 3 vessel cord. Insertion site: documented previously Amniotic fluid: Amount of AF: normal amount. MVP 5.1 cm Biometry Standard BPD ?88.5 mm 35w 5d 99% Hadlock OFD ?107.4 mm ?35w 3d 95% Gerda HC ? 310.9 mm ?34w 5d 68% Hadlock AC ? 298.6 mm ?33w 6d 81% Hadlock Femur ??58.6 mm 30w 4d 3% Hadlock Humerus ?55.7 mm 32w 3d 50% Gerda HC / AC ?1.04 EFW ?2,138 g ??55% Hadlock EFW (lb) ? 4 lb EFW (oz) ? 11 oz EFW by: ?Hadlock ([id number]-SM-WK-FL) Extended Tibia ??52.5 mm 31w 1d 20% Gerda Pbx Mechanic ? 2.7 mm Head / Face / Neck Cephalic index 0.82 ? 75% Nicolaides Nasal bone: ?documented previously Extremities / Bony Struc FL / BPD ? 0.66 FL / HC ?0.19 FL / AC ?0.20 Other Structures FHR ?141 bpm Anatomy The following structures appear normal: Head/Neck: Cranium. Lateral ventricles. Cavum septi pellucidi. Parenchyma. Heart/Thorax: 4-chamber view. 3-vessel view. 6-ppvplb-kydiltv view. Bicaval view. Cardiac rhythm. ? Diaphragm. Abdomen: Stomach. Kidneys. Bladder. Small bowel. Large bowel. The following structures could not be adequately visualized: Face: Profile. Orbits. Heart / Thorax RVOT view. LVOT view. Aortic arch view. Interventricular septum. Great vessels. Cardiac position. Cardiac ? axis. Cardiac size. Spine: Cervical spine. Thoracic spine. Lumbar spine. Sacral spine. Extremities/Skeleton: Right hand. Left upper arm. Left hand. Skeleton The following structures could not be examined: Face ?? Maxilla. Mandible. Heart / Thorax Ductal arch view. Extremities / ??Left forearm. Skeleton The following structures were documented previously: Head / Neck ?Choroid plexus. Midline falx. Cerebellum. Cisterna magna. Vermis. ? Neck. Face ?? Lips. Nose. Nasal bone. Heart / Thorax Situs. ? Right lung. Left lung. Abdomen ?Abdom. wall. Cord insertion. Right renal artery. Left renal artery. Genitals. Extremities / ??Right upper arm. Right forearm. Right upper leg. Right lower leg. Right foot. Left upper leg. Left lower ? leg. Left foot. Maternal Structures Uterus Visualized Cervix Suboptimal ? Approach - Transabdominal Right Ovary ?Not visualized Left Ovary ? Not visualized Cul de Sac ? Suboptimal Impression Single live intrauterine . 32w 5d. Normal growth. EFW measures at the 55%, AC measures at the 81%. Amniotic fluid MVP measures 5.1 cm. Recommendations Please see [facility] recommendations from prior clinical and/or ultrasound report documentation. The patient is scheduled in four to six week(s) to complete anatomic survey. Subsequent follow up or other follow up as clinically determined by primary OB provider unless otherwise specified by M. Results forwarded to ordering provider so they can follow up with the patient as necessary. Procedure Note Jean Carlos Pina MD - 10/08/2025 NAME: JAYY REYNAGA : 1995 SEX: F Accession Number: [id number] ORDERING PHYSICIAN: MADHURI MONROY REFERRING PHYSICIAN: JONY MEJÍA Coding Procedures 30234: Ultrasound, uterus, real time with image documentation, follow up, transabdominal approach per fetus Indication Screening for follow-up survey, Gestational diabetes, Chronic hypertension affecting , History of prior with pre-eclampsia , History of prior with delivery ,Previous surgery to cervix -(D&C). History OB History 2. Para 1 [id number] Current Cell free DNA Low Risk analysis Maternal Assessment Physical Exam Height 157 cm, 5 ft 2 in. Weight 76 kg, 168 lb. Initialweight 64 kg, 140 lb. BMI 30.73 kg/m??. Initial BMI 25.61 kg/m??. Weight gain 13 kg, 28 lb Method Transabdominal ultrasound examination. View: Suboptimal view: limited byfetal position. Hsieh . Number of fetuses: 1 Dating LMP on: 02/21/2025 GA by LMP 32 w + 5 d WEI by LMP: 11/28/2025 Previous Ultrasound on: 05/01/2025 Type of prior assessment: CRL U/S measurement at prior assessment date 25.2 mm GA by previous U/S 32 w + 1 d WEI by previous Ultrasound: 12/02/2025 Ultrasound examination on: 10/08/2025 GA by U/S based upon: AC, BPD, Femur, HC GA by U/S 33 w + 5 d WEI by U/S: 11/21/2025 Assigned: based on the LMP, selected on 09/10/2025 Assigned GA (weeks days) 32 w + 5 d Assigned WEI: 11/28/2025 General Evaluation Cardiac activity Present. FHR 141 bpm. Presentation: cephalic Placenta: Placental site: anterior, previously documented away fromcervical os Umbilical cord: Cord vessels: 3 vessel cord. Insertion site: documented previously Amniotic fluid: Amount of AF: normal amount. MVP 5.1 cm Biometry Standard BPD 88.5 mm 35w 5d 99% Hadlock OFD 107.4 mm 35w 3d 95% Gerda HC 310.9 mm 34w 5d 68% Hadlock AC 298.6 mm 33w 6d 81% Hadlock Femur 58.6 mm 30w 4d 3% Hadlock Humerus 55.7 mm 32w 3d 50% Gerda HC / AC 1.04 EFW 2,138 g 55% Hadlock EFW (lb) 4 lb EFW (oz) 11 oz EFW by: Hadlock (CRA-BV-KK-FL) Extended Tibia 52.5 mm 31w 1d 20% Gerda Pbx Mechanic 2.7 mm Head / Face / Neck Cephalic index 0.82 75% Nicolaides Nasal bone: documented previously Extremities / Bony Struc FL / BPD 0.66 FL / HC 0.19 FL / AC 0.20 Other Structures FHR 141 bpm Anatomy The following structures appear normal: Head/Neck: Cranium. Lateral ventricles. Cavum septi pellucidi.Parenchyma. Heart/Thorax: 4-chamber view. 3-vessel view. 2-udjnae-qtoawlv view.Bicaval view. Cardiac rhythm. Diaphragm. Abdomen: Stomach. Kidneys. Bladder. Small bowel. Large bowel. The following structures could not be adequately visualized: Face: Profile. Orbits. Heart / Thorax RVOT view. LVOT view. Aortic arch view. Interventricularseptum. Great vessels. Cardiac position. Cardiac axis. Cardiac size. Spine: Cervical spine. Thoracic spine. Lumbar spine. Sacral spine. Extremities/Skeleton: Right hand. Left upper arm. Left hand. Skeleton The following structures could not be examined: Face Maxilla. Mandible. Heart / Thorax Ductal arch view. Extremities / Left forearm. Skeleton The following structures were documented previously: Head / Neck Choroid plexus. Midline falx. Cerebellum. Cisterna magna.Vermis. Neck. Face Lips. Nose. Nasal bone. Heart / Thorax Situs. Right lung. Left lung. Abdomen Abdom. wall. Cord insertion. Right renal artery. Left renalartery. Genitals. Extremities / Right upper arm. Right forearm. Right upper leg. Rightlower leg. Right foot. Left upper leg. Left lower leg. Left foot. Maternal Structures Uterus Visualized Cervix Suboptimal Approach - Transabdominal Right Ovary Not visualized Left Ovary Not visualized Cul de Sac Suboptimal Impression Single live intrauterine . 32w 5d. Normal growth. EFW measures at the 55%, AC measures at the 81%. Amniotic fluid MVP measures 5.1 cm. Recommendations Please see M recommendations from prior clinical and/or ultrasoundreport documentation. The patient is scheduled in four to six week(s) to complete anatomicsurvey. Subsequent follow up or other follow up as clinically determined byprimary OB provider unless otherwise specified by MFM. Results forwarded to ordering provider so they can follow up with thepatient as necessary. Authorizing ProviderResult TypeResult StatusMadhuri Monroy [facility] ORDERABLESFinal Result * 2nd hr Glucose Tolerance 100 gm load (08/15/2025)ComponentValueRef RangeTest MethodAnalysis TimePerformed AtPathologist SignatureGlucose Tolerance Test 2 [id number] TRANSCRIBED RESULTSSpecimen (Source)Anatomical Location / LateralityCollection Method / VolumeCollection TimeReceived TimeBloodVenous blood / Unknown Narrative Authorizing ProviderResult TypeResult StatusNot In System Ref [email or web address].chLAB BLOOD ORDERABLESFinal ResultPerforming OrganizationAddressCity/State/ZIP CodePhone Number MANUALLY TRANSCRIBED RESULTS * Glucose tolerance, 1 hour (08/15/2025)ComponentValueRef RangeTest Method Analysis TimePerformed AtPathologist SignatureGlucose Tolerance Test 1 [id number] MANUALLY TRANSCRIBED RESULTSSpecimen (Source)Anatomical Location / Laterality Collection Method / VolumeCollection TimeReceived TimeBloodVenous blood / Unknown Narrative Authorizing ProviderResult TypeResult StatusNot In System Ref ProvLAB BLOOD ORDERABLESFinal ResultPerforming OrganizationAddressCity/State/ZIP CodePhone Number MANUALLY TRANSCRIBED RESULTS * Glucose tolerance, 3 hours (08/15/2025)ComponentValueRef RangeTest Method Analysis TimePerformed AtPathologist SignatureGlucose Tolerance Test 3 Ydzl659 MANUALLY TRANSCRIBED RESULTSSpecimen (Source)Anatomical Location / Laterality Collection Method / VolumeCollection TimeReceived TimeBloodVenous blood / Unknown Narrative Authorizing ProviderResult TypeResult StatusNot In System Ref ProvLAB BLOOD ORDERABLESFinal ResultPerforming OrganizationAddressCity/State/ZIP CodePhone Number MANUALLY TRANSCRIBED RESULTS * Glucose, tolerance fasting (08/15/2025)ComponentValueRef RangeTest Method Analysis TimePerformed AtPathologist SignatureGlucose Tolerance Test Xduigdt36 MANUALLY TRANSCRIBED RESULTSSpecimen (Source)Anatomical Location / Laterality [...] TimePerformed AtPathologist SignatureGlucose, 1 hr PP 50GM [id number] MANUALLY TRANSCRIBED RESULTSSpecimen (Source)Anatomical Location / Laterality [...] Date Cruz Rodríguez MD [address] [place] [address] PCP - GeneralFamily Medicine12/02/18
--- OUTSIDE RECORDS SUMMARY | 2025-10-10 10:26 | XMS_ITS | Encounter Summary ---
Author Organization [facility] Address [address] [place] [place] [address] Care Team Providers Care Internal Carver Name Role Phone Eliceo Beltran DO Primary Care Provider [phone] CharlottecarolEliceo Unavailable [phone] Encounter Details DateTypeDepartmentCare Team (Latest Contact Info)Gtvqodlplez77/06/2025Telephone [facility] [address] [place] [phone] Nathan Pop DO [address] [facility] [address] [place], [facility] Social History Tobacco UseTypesPacks/DayYears UsedDateSmoking Tobacco: NeverSmokeless Tobacco: NeverAlcohol UseStandard Drinks/WeekCommentsNever0 (1 standard drink = 0.6 oz pure alcohol)caffeine: 1-2 cups per day, coffee and nskK8959 Health Literacy AnswerDate RecordedHow often do you [...] week12/29/2024How often do you attend mu-ism or taoist services?Patient /03/2025Do you belong to any clubs or organizations such as mu-ism groups, unions, [employer] or athletic leodan ups, or school groups?No12/29/2024How often do you attend meetings of the clubs or organizations you belong to?Patient wdetcttk59/03/2025re you , , , , never , [...] RecordedPatient Health Questionnaire-2 Score0 07/30/2025[facility] [place] [facility] - Occupational Stress QuestionnaireAnswerDate RecordedDo you feel stress - tense, restless, nervous, or anxious, or unable to sleep at night because yourmind is troubled all the time - these days?Only a jxndxu5012/29/2024Exercise Vital SignAnswerDate Recorded On average, how many [...] the highest degree you have received?High school tvembtvk38/29/2023 Estimated Date of EsmsveapKabolqzoLzo70/03/2026ased on last menstrual period of 02/21/2025Sex and Gender InformationValueDate RecordedSex Assigned at BirthNot on fileLegal QxqSossqj67/15/2023 7:18 PM EDTGender IdentityNot on file Sexual [...] Plan of Treatment DateTypeDepartmentCare Team (Latest Contact Info)Fdgqyvstbvq19/19/2025 3:30 PM ESTRoutine [facility] [address] [place] [address] Nathan Pop DO [address] [facility] [place] [address] documented as of this encounter Visit Diagnoses Not on filedocumented in this encounter Care Teams Team MemberRelationshipSpecialtyStart DateEnd Date Eliceo Beltran DO [address] [facility] [address] [place] [address] PCP - GeneralFamily Medicine02/14/24 Eliceo Beltran DO [address] [facility] [address] [place] [address] PCP - Medical [place] [employer]07/27/2412documented as of this encounter
== END 2025-10-10 11:15 | disposition home or self-care (01) ==
LOC: FBCO 10:17 → FBC 10:19
PROVIDERS: Family Provider Family Medicine; PCP Family Medicine; Visit Provider Obstetrics & Gynecology
DX: O13.3 Gestational [pregnancy-induced] hypertension without significant proteinuria, third trimester (principal); Z3A.33 33 weeks gestation of pregnancy
CPT/HCPCS: 76818

== ENCOUNTER 2025-10-12 18:53 | Observation (INO) | payer OTHER, SELFPAY ==
--- OUTSIDE RECORDS SUMMARY | 2025-09-30 15:00 | XMS_ITS | Encounter Summary ---
Author Organization [facility] Address [address] [place] [address] Care Team Providers Care Telecommunication Equipment Repairer Name Role Phone CharlotteEliceo medina Primary Care Provider Charlottecarol Eliceo Hurtado DO Unavailable [phone] Reason for Visit * ReasonCommentsRoutine Visit Encounter Details DateTypeDepartmentCare Team (Latest Contact Info)Mjspszirdii01/05/2025 3:00 PM ESTRoutine [facility] [address] [place] [phone] Nathan Pop DO [address] [place], [place] [id number] Third trimester ([facility]); 31 weeks gestation of ([facility]); Pre-eclampsia in third trimester ([facility]) Social History Tobacco UseTypesPacks/DayYears UsedDateSmoking Tobacco: NeverSmokeless Tobacco: NeverAlcohol UseStandard Drinks/WeekCommentsNever0 (1 standard drink = 0.6 oz pure alcohol)caffeine: 1-2 cups per day, coffee and [id number] Health Literacy AnswerDate RecordedHow often do you [...] week12/29/2024How often do you attend mosque or buddhist services?Patient hnzvvond29/03/2025Do you belong to any clubs or organizations such as mosque groups, unions, [employer] or athletic leodan ups, or school groups?No12/29/2024How often do you attend meetings of the clubs or organizations you belong to?Patient mxnlneys14/03/2025re you , , , , never , [...] hard at all12/29/2024PHQ-2AnswerDate RecordedPatient Health Questionnaire-2 Score0 07/30/2025[facility] [place] of Occupational Health - Occupational Stress QuestionnaireAnswerDate RecordedDo you feel stress - tense, restless, nervous, or anxious, or unable to sleep at night because yourmind is troubled all the time - these days?Only a rvtofy4612/29/2024Exercise Vital SignAnswerDate Recorded On average, how many [...] place to sleep or slept in [facility] (including now)?No09/19/2023Housing Stability Vital SignAnswerDate RecordedIn [...] the highest degree you have received?High school kzaqgibp06/29/2023 Estimated Date of NrgmrnukFigcfdfxHpq51/03/2026ased on last menstrual period of 02/21/2025Sex and Gender InformationValueDate RecordedSex Assigned at BirthNot on fileLegal RtmRfstde61/15/2023 7:18 PM EDTGender IdentityNot on file Sexual OrientationNot on 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 Not on fileNot on fileNot on filedocumented as of this encounter Last Filed Vital Signs Vital SignReadingTime TakenCommentsBlood Kqqptuad572/8211 3:04 PM EST Pulse--Temperature--Respiratory Rate--Oxygen Saturation--Inhaled Oxygen Concentration--Djnrkc51.3 kg (166 lb)09/30/2025 3:04 PM ESTHeight--Body Mass [...] John San infection GDM (gestational diabetes mellitus) ([facility]) Headache History of menstrual cramps ([facility]) Varicella zoster Visual impairment HISTORY PAST MEDICAL HISTORY SOCIAL HISTORY Past Medical History: Diagnosis Date Amenorrhea d/t oral contraceptive pills Endometriosis John San infection GDM (gestational diabetes mellitus) ([facility]) Headache History of menstrual cramps severe Hypertension ([facility]) x1 Varicella zoster unsure [...] History: Procedure Laterality Date APPENDECTOMY 05/2016 at [facility] DIL[facility] AND CURETTAGE 12/2022 retained placenta DISTAL [...] nursing note reviewed. Exam conducted with a it corporate recruiter present. Vitals: Estimated body mass index is 30.36 kg/m?? as calculated from the following: Height as of 07/30/25: 5' 2 . Weight as of this encounter: 166 lb. BP: 140/82 Patient's last menstrual period was 02/21/2025. Assessment/Plan ICD-10-CM 1. Third trimester ([facility]) Z34.93 POCT urinalysis dipstick manually resulted 2. 31 weeks gestation of ([facility]) Z3A.31 3. Pre-eclampsia in third trimester ([facility]) O14.93 Return OB: Patient presents today for [...] Plan of Treatment DateTypeDepartmentCare Team (Latest Contact Info)Ounyanadufz35/19/2025 3:30 PM ESTRoutine [facility] [address] [place] [address] Nathan Pop DO [address] [place] [address] documented as of this encounter Procedures Procedure NamePriorityDate/TimeAssociated DiagnosisCommentsPOCT URINALYSIS POOXOEHDPdcvtei27/05/2025 3:13 PM EST Third trimester ([facility]) documented in this encounter Results * POCT [...] gestation of ([facility]) Pre-eclampsia in third trimester ([facility]) documented in this encounter Care Teams Team MemberRelationshipSpecialtyStart DateEnd Date Eliceo Beltran DO [address] [place], [place] [address] PCP - GeneralFamily Medicine02/14/24 Eliceo Beltran DO [address] [address] PCP - Medical [place] [employer]07/27/2412documented as of this encounter
--- OUTSIDE RECORDS SUMMARY | 2025-10-06 14:30 | XMS_ITS | Encounter Summary ---
Author Organization [facility] [employer] [facility] tem Address [id number] [address] [place] [address] Care Team Providers Care Babcock Tester Name Role Phone Cruz Rodríguez MD Primary Care Provider Encounter Details DateTypeDepartmentCare Team (Latest Contact Info)Xwvsohaabdx25/11/2025 2:30 PM ESTTelemedicine Maternal- Medicine at [facility] [address] [place] [phone] Kayleigh Rizzo PALuis Angel [address] [address] Insulin controlled gestational diabetes mellitus (GDM) in [...] or more drinks on one occasion?Never5ChildcareAnswer Date ArymwjihKsmqckxojRvlqhcs46/13/2019EmploymentAnswerDate RecordedEmployment Iypglub3405/08/2019Hunger ScreeningAnswerDate RecordedWithin the past 12 months we worried whether our food would run out before we got money to buy more.Never True09/10/2025Within the past 12 months the food we bought just didn't last and we didn't have money to get more.Never True09/10/2025Purpose - LifeAnswerDate RecordedPurpose and direction in oasoLlzflua32/11/2021Estimated Date of FxkzzvebJnnkivhhGvl31/03/2026Based on last menstrual period of 02/21/2025 (Exact Date)Sex and Gender InformationValueDate RecordedSex Assigned at BirthNot on fileLegal IuiCblgca71/07/2019 2:55 PM ESTGender IdentityNot on fileSexual OrientationNot on filedocumented as of this encounter Progress Notes * Kayleigh Rizzo PA-C - 10/06/2025 2:30 PM EST Maternal- Medicine Consultation VIDEO Patient is present at work, provider present at [facility] HISTORY OF PRESENT ILLNESS: Driss Gama [...] values to us weekly by e-mail to: [email or web address] or by fax to: [phone] Kayleigh Rizzo PA-C Maternal- Medicine Office phone: [phone] Kayleigh Rizzo PA-C 10/06/25 4705 documented in this encounter Plan of Treatment DateTypeDepartmentCare Team (Latest Contact Info)Iajlkulwndh36/03/2025 11:00 AM ESTAppointment Maternal Medicine [place] [address] [place] [address] 11/03/2025 2:30 PM ESTOffice Visit Maternal- Medicine at [facility] [address] [place] [address] Kayleigh Rizzo, PALuis Angel [address] [address] documented as of this encounter Visit Diagnoses Diagnosis Insulin controlled gestational diabetes mellitus (GDM) in third trimester- Primary Essential hypertension affecting in third trimester documented in this encounter Care Teams Team MemberRelationshipSpecialtyStart DateEnd Date Cruz Rodríguez MD [address] [place] [address] PCP - GeneralFamily Medicine12/02/18documented as of this encounter
[2025-10-12] VITALS (9 sets, daily range): BP systolic 123–150; BP diastolic 62–92; PULSE 92–109; TEMP 36.5–36.8
--- OUTSIDE RECORDS SUMMARY | 2025-10-12 18:58 | XMS_ITS | Encounter Summary ---
Author Organization [facility] tem Address [id number] [address] [place] [address] Care Team Providers Care Architecture Department Chair Name Role Phone Cruz Rodríguez MD Primary Care Provider [phone] Reason for Referral * Diagnostic Imaging (Routine) - Pending ReviewSpecialtyDiagnoses / Procedures Referred By ContactReferred To ContactMaternal and Medicine Diagnoses Essential hypertension affecting in third trimester Insulin controlled gestational diabetes mellitus (GDM) in third trimester Procedures [facility] with or without consult Jean Carlos Pina MD [address] [facility], [address] [place] [address] Phone: tel: fax: [facility]- [facility] at [facility] [address] [place] [address] Phone: tel: fax: Referral IDStatusReasonStart DateExpiration DateVisits RequestedVisits [id number] Encounter Details DateTypeDepartmentCare Team (Latest Contact Info)Esrhpusixjv42/14/2025Orders Only [facility]- [facility] at [facility] [address] [place] [address] Zora Samuels RN Essential hypertension affecting in [...] or more drinks on one occasion?Never5ChildcareAnswer Date PkhyfeilRgyuaunjzYirsgnn24/13/2019EmploymentAnswerDate RecordedEmployment Ynnkwtu3505/08/2019Hunger ScreeningAnswerDate RecordedWithin the past 12 months we worried whether our food would run out before we got money to buy more.Never True09/10/2025Within the past 12 months the food we bought just didn't last and we didn't have money to get more.Never True09/10/2025Purpose - LifeAnswerDate RecordedPurpose and direction in ivtdJjrhtlx36/11/2021Estimated Date of AmfxnydaBlsbkejjVll45/03/2026Based on last menstrual period of 02/21/2025 (Exact Date)Sex and Gender InformationValueDate RecordedSex Assigned at BirthNot on fileLegal ZvdDxumxo34/07/2019 2:55 PM ESTGender IdentityNot on fileSexual OrientationNot on filedocumented as of this encounter Plan of Treatment DateTypeDepartmentCare Team (Latest Contact Info)Hhpjbevrngw35/03/2025 11:00 AM ESTAppointment Maternal Medicine [facility] [address] [place] [phone] 11/03/2025 2:30 PM ESTOffice Visit [facility]aternal[facility] at [facility] [address] [facility] [facility] [place] [phone] Kayleigh Rizzo PA-C [address] [facility] [address] [place] [address] NameTypePriorityAssociated DiagnosesOrder ScheduleUS MFM with or without [...] DateEnd Date Cruz Rodríguez MD [address] [place] [address] PCP - GeneralFamily Medicine12/02/18documented as of this encounter
--- OUTSIDE RECORDS SUMMARY | 2025-10-12 18:58 | XMS_ITS | Encounter Summary ---
Author Organization [facility] Address [address] [place] [address] Care Team Providers Care Manager News Name Role Phone Eliceo Beltran DO Primary Care Provider CharlottegeovaniEliceo kauffman Unavailable [phone] Encounter Details DateTypeDepartmentCare Team (Latest Contact Info)Lrxfnypsvih37/14/2025bstract [facility] [address] [place] [address] Nathan Pop DO [address] [place], [facility] Social History Tobacco UseTypesPacks/DayYears UsedDateSmoking Tobacco: NeverSmokeless Tobacco: NeverAlcohol UseStandard Drinks/WeekCommentsNever0 (1 standard drink = 0.6 oz pure alcohol)caffeine: 1-2 cups per day, coffee and [id number] Health Literacy AnswerDate RecordedHow often do you [...] relatives?Once a week12/29/2024How often do you attend christianity or confucianism services?Patient ctnmfuub79/03/2025Do you belong to any clubs or organizations such as christianity groups, unions, [email or web address] or athletic leodan ups, or school groups?No12/29/2024How often do you attend meetings of the clubs or organizations you belong to?Patient hhazpllb65/03/2025re you , , , , never , [...] hard at all12/29/2024PHQ-2AnswerDate RecordedPatient Health Questionnaire-2 Score0 07/30/2025[facility] [place] [facility] - Occupational Stress QuestionnaireAnswerDate RecordedDo you feel stress - tense, restless, nervous, or anxious, or unable to sleep at night because yourmind is troubled all the time - these days?Only a ubownt3712/29/2024Exercise Vital SignAnswerDate Recorded On average, how many [...] the highest degree you have received?High school ekgnplan20/29/2023 Estimated Date of QvtoejgsQaugyabeJef63/03/2026ased on last menstrual period of 02/21/2025Sex and Gender InformationValueDate RecordedSex Assigned at BirthNot on fileLegal BfgYvchyn87/15/2023 7:18 PM EDTGender IdentityNot on file Sexual OrientationNot on 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 Not on fileNot on fileNot on filedocumented as of this encounter Plan of Treatment DateTypeDepartmentCare Team (Latest Contact Info)Vxdevyyufkk63/19/2025 3:30 PM ESTRoutine [facility] YOUNGN [address] [place] [phone] Nathan Pop DO [address] [place] [address] documented as of this encounter Visit Diagnoses Not on filedocumented in this encounter Care Teams Team MemberRelationshipSpecialtyStart DateEnd Date Eliceo Beltran DO [address] [address] PCP - GeneralFamily Medicine02/14/24 Eliceo Beltran DO [address] [facility] [address] [place] [address] PCP - Medical [place] [employer]07/27/2412documented as of this encounter
--- OUTSIDE RECORDS SUMMARY | 2025-10-12 18:59 | XMS_ITS | CCD ---
Author Organization [facility] Care Team Providers Care Tallow Pumper Name Role Phone Unavailable Unavailable POCOPAL QUINTEROS Referring Unavailable DENNY RODRÍGUEZ Primary Care Unavailable OPAL LARA Referring Unavailable DENNY RODRÍGUEZ Primary Care Unavailable DENNY RODRÍGUEZ Primary Care Physician [phone] Domo Hodges Unavailable PAOLO DIALLO Attending Unavailable KATHE RYDER Admitting Unavailable KATHE RYDER Attending Unavailable Denny Rodríguez MD Primary Care Provider Denny Rodríguez MD Unavailable Denny Rodríguez MD Primary Care Provider [phone] Denny Rodríguez MD Unavailable [phone] Kita HOUSE STEWARD/STEWARDESS, Zenobia Unavailable Keesha HOUSE STEWARD/STEWARDESS, Trista R Unavailable Denny Rodríguez MD Primary Care Provider [phone] CHARLENE RODRIGUEZ Referring Unavailable RODRÍGUEZ, EDNNY SAHIL Primary Care Unavailable CHARLENE RODRIGUEZ Attending [...] Care Provider Kiesha DO, Nathan Attending Provider [phone] Kiesha, Nathan Admitting Unavailable Kiesha, Nathan [...] Unavailable Denny Rodríguez MD Primary Care Provider [phone] STEPH KEANE Attending Unavailable STEPH KEANE Admitting [...] Care Provider Denny Rodríguez MD Unavailable Kita HOUSE STEWARD/STEWARDESS, Zenobia Unavailable Keesha HOUSE STEWARD/STEWARDESS, Trista R Unavailable ELICEO BELTRAN Attending Unavailable KIESHA, NATHAN [...] [No Known Medication Allergies]Propensity to adverse reactions (disorder)[facility] Medications Current Medications MedicationDrug Class(es)DatesSig (Normalized)Sig (Original)acetaminophen 325 mg / butalbital 50 mg / caffeine 40 mg oral tablet (14 sources)Barbiturate, Central Nervous System Stimulant, MethylxanthineStart: 02-19-2024 End: 26-13-4074cxzy 1 tablet by mouth every six hours for headache nbxfodbsgf-hldlbddxjwnsx-qjzawqjl 50-325-40 MG tablet Indications: Other migraine without status migrainosus, not intractable Take 1 tablet by mouth every 6 (six) hours if needed for headaches 20 tablet 02/19/2024 05/01/2025 Discontinuedatenolol 25 mg oral tablet (4 sources)beta-Adrenergic BlockerStart: 86-84-4594qtag 1 mg by mouth once daily atenolol 25 mg Tab mg tab(s), Oral, Daily, Refills(s) 0 Start Date: 02/02/21 Status: OrderedStart: 08-06-2017 End: 71-98-3185pmrh 1 tablet by mouth once dailyAtenolol 50 mg tablet Discontinued 50 MG PO Daily August 06, 2017 12:00am October 16, 2018 3 :34pmbaclofen suppository 10 mg (CPD) (8 sources)Start: 36-91-6670mbavjklf suppository 10 mg (CPD) Indications: High- tone pelvic floor dysfunction , Chronic pelvic pain in female Unwrap and insert one suppository vaginally daily at bedtime. 30 Suppository 2 08/24/2023 Active Comment on above:Unwrap and insert one suppository vaginally daily at bedtime. Blood Glucose Monitoring Suppl (D-Care Glucometer) w/Device kit (20 sources)Start: 08-20-2025 End: 98-22-6199Asjdj Glucose Monitoring Suppl (D-Care Glucometer) w/Device kit Indications: Gestational diabetes mellitus (GDM), antepartum, gestational diabetes method of control unspecified ([facility]) , Elevated glucose tolerance test 1 kit Daily Use four times daily to check FSBS. In the morning prior to breakfast & 1 hour after each meal for a total of 4times daily. 1 kit 08/20/2025 08/20/2026 Activecephalexin 500 mg oral capsule (6 sources)Cephalosporin AntibacterialStart: 02-14-2021 End: 95-98-7058mjcd 1 capsule by mouth every twelve hoursKeflex 500 mg Cap 500 mg = 1 cap(s), Oral, q12hr, X 7 day(s), # 14 cap(s), Refills(s) 0 Start Date: 07/14/22 Stop Date: 07/21/22 Status: OrderedStart: 03-14-2019 End: 81-16-9500rjgr 1 capsule by mouth every twelve hoursCephalexin (Keflex) 500 mg capsule Discontinued 500 MG PO Q12H 14 March 14, 2019 12:00am August 04, 2019 8:18amcyclobenzaprine hydrochloride 5 mg oral tablet (20 sources)Muscle RelaxantStart: 12-30-2024 End: 53-47-8087kobv 1 tablet by mouth in the morning, [...] 30 tablet 12/30/2024 01/09/2025 ActiveStart: 05-01-2023 End: 30-02-0797fwdp 1 tablet by mouth at bedtime as neededcyclobenzaprine (FLEXERIL) 5 mg tablet Indications: Dysmenorrhea , Chronic pelvic pain in female Take 1 tablet by mouth at bedtime as needed. 30 tablet 1 05/01/2023 ActiveStart: 99-66-2685xkqy 1 tablet by mouth three times daily as needed for muscle spasms cyclobenzaprine 10 mg Tab 10 mg = 1 tab(s), Oral, TID, PRN for spasm, # 30 tab(s), Refills(s) 0, Pharmacy: [facility], 157, cm, 01/23/22 7:20:00 EST, Height/Length Dosing, 55, kg, 01/23/22 7:20:00 EST, Weight Dosing Start Date: 01/23/22 Status: Ordered Quantity: 30.0 Unit: tab(s) Repeat number: 1 Comment on above:Take 1 tablet by mouth at bedtime as needed.cyproheptadine hydrochloride 4 mg oral tablet (10 sources)Start: 61-23-6036vmyb 1 mg by mouth three times dailycyproheptadine 4 mg Tab mg tab(s), Oral, TID, Refills(s) 0 Start Date: 02/02/21 Status: Ordered Repeat number: 1Dasetta oral tablet (1 source)Start: 46-36-5869jeer 1 tablet by mouth once dailyDasetta oral tablet 1 tab(s), Oral, Daily, Refill(s) 0, control/menstrual regulation Start Date: 11/23/16 Status: Ordereddocusate sodium 100 mg oral capsule (7 sources)Start: 11-30-2022 End: 96-96-5834gsvp 1 capsule by mouth twice daily as needed for constipation Docusate Sodium (DSS) 100 MG capsule Take 1 capsule (100 mg) by mouth 2 times daily as needed for constipation (Vaginal Delivery) for up to 10 days. 60 capsule 0 12/01/2022 12/31/2022 ActiveStart: 07-14-2022 End: 50-58-9961jgrl 1 capsule by mouth twice dailyColace 100 mg Cap 100 mg = 1 cap(s), Oral, BID, X 10 day(s), # 20 cap(s), Refills(s) 0 Start Date: 07/14/22 Stop Date: 07/24/22 Status: Orderedelagolix 150 mg oral tablet (13 sources)Start: 07-16-2023 End: 36-41-6950pzbp 1 tablet by mouth once dailyelagolix (ORILISSA) 150 mg tablet Take 1 tablet (150 mg) by mouth once daily. 30 tablet 11 07/16/2023 07/15/2024 ActiveStart: 47-31-7138pkoy 1 tablet by mouth twice dailyOrilissa 200 MG Oral Tablet take 1 tablet by mouth twice a day Quantity: 60 Refills: 4 Ordered: 09-Feb-2022 Charlene Rodriguez DO Start : 09-Feb-2022 ActiveComment on above:Take 1 tablet (150 mg) by mouth once daily.ergocalciferol 0.05 mg oral capsule (1 source)Provitamin D2 CompoundStart: 97-45-5568Siilowz D2 2000 intl units oral capsule Oral, Daily, Refills(s) 0 Start Date: 02/02/21 Status: OrderedEthinyl Estradiol / Levonorgestrel (8 sources)Progestin, Estrogen, Progestin-containing Intrauterine DeviceStart: 04-03-2024 End: 71-19-5805geqyhsboncrpiz-ethinyl estradiol (Jolessa) 0.15-0.03 MG tablet Indications: Uses control TAKE1 TABLET BY MOUTH EVERY MORNING 91 tablet 3 04/03/2024 08/18/2024 Discontinued (Other)Start: 83-26-2905ixjxjwlfuxtvgf- ethinyl estradiol (Jolessa) 0.15-0.03 MG tablet Indications: Uses control TAKE1 TABLET BY MOUTH EVERY MORNING 91 tablet 3 04/03/2024 ActiveStart: 01-10-2024 End: 07-17-2494lnbs 1 tablet by mouth in the morning, then take 1 tablet by mouth once dailylevonorgestrel-ethinyl estradiol (Jolessa) 0.15-0.03 MG tablet Indications: Uses control Take1 tablet by mouth in the morning. Take 1 tablet by mouth daily. 90 tablet 0 01/10/2024 04/09/2024 Activeethinyl estradiol 0.035 mg / norgestimate 0.25 mg oral tablet (4 sources)Progestin, EstrogenStart: 07-86-4565nhjcynafuogb-ethinyl estradiol (Ortho-Cyclen) 0.25-35 MG-MCG tablet 1 (one) time each day at the same time. 0 01/15/2023 ActiveStart: 20-58-3694ndpl 1 tablet by mouth once dailyNorgestimate- Ethinyl Estradiol 0.25-35 mg-mcg tablet Active 1 TAB PO Daily August 04, 2019 12:00amMono-Linyah 0.25-35 MG-MCG Oral for 28 Not-TakinghydrOXYzine hydrochloride 25 mg oral tablet (10 sources)AntihistamineStart: 34-09-5056gppc 1 mg by mouth four times daily hydrOXYzine hydrochloride 25 mg Tab mg tab(s), Oral, QID, Refills(s) 0 Start Date: 02/02/21 Status: Ordered Repeat number: 1hyoscyamine sulfate 0.125 mg oral tablet (10 sources)Start: 84-61-6976iztm 1 tablet by mouth every six hoursLevsin 0.125 mg SL Tab 0.125 mg = 1 tab(s), Oral, q6hr, # 20 tab(s), Refills(s) 1, Pharmacy: [facility], 161, cm, 03/10/21 11:21:00 EDT, Height/Length Dosing, 56, kg, 03/10/21 11:21:00 EDT, Weight Dosing Start Date: 03/10/21 Status: Ordered Quantity: 20.0 Unit: tab(s) Repeat number: 2ibuprofen 600 mg oral tablet (15 sources)Nonsteroidal Anti-inflammatory DrugStart: 01-23-2022 End: 22-37-1147twvo 1 tablet by mouth every six hoursibuprofen 600 mg Tab 600 mg = 1 tab(s), Oral, q6hr, # 40 tab(s), Refills(s) 0, [facility]: [facility], 157, cm, 01/23/22 7:20:00 EST, Height/Length Dosing, 55, kg, 01/23/22 7:20:00 EST, WeightDosing Start Date: 01/23/22 Status: Ordered Quantity: 40.0 Unit: tab(s) Repeat number: 1insulin glargine-yfgn (Semglee-yfgn) 100 UNIT/ML pen (8 sources)Start: 49-68-6462agfrifu glargine-yfgn (Semglee-yfgn) 100 UNIT/ML pen Inject 13 Units under the skin at bedtime 09/15/2025 Activeinsulin glargine-yfgn 100 unit/mL (3 mL) insulin pen (16 sources)Start: 80-55-1282bjzyyco glargine-yfgn 100 unit/mL (3 mL) insulin pen Indications: Essential hypertension affecting in third trimester Prime with 2 units and give 5 units every morning and 23 units subQ at bedtime. 15 mL 3 09/28/2025 ActiveStart: 09-21-2025 End: 64-37-3048mdshrez glargine-yfgn 100 unit/mL (3 mL) insulin pen Indications: Essential hypertension affecting in third trimester Prime with 2 units and give 5 units every morning and 20 units subQ at bedtime. 15 mL 3 09/21/2025 09/28/2025 DiscontinuedStart: 52-68-3567mesrznx glargine-yfgn 100 unit/mL (3 mL) insulin pen Indications: Essential hypertension affecting in third trimester Prime with 2 units and give 5 units every morning and 20 units subQ at bedtime. 15 mL 3 09/21/2025 ActiveStart: 09-17-2025 End: 32-23-6145lkpqsyl glargine-yfgn 100 unit/mL (3 mL) insulin pen Indications: Essential hypertension affecting in third trimester Prime with 2 units and give 5 units every morning and 17 units subQ at bedtime. 15 mL 3 09/17/2025 09/21/2025 DiscontinuedStart: 43-08-6068izejbbp glargine-yfgn 100 unit/mL (3 mL) insulin pen Indications: Essential hypertension affecting in third trimester Prime with 2 units and give 5 units every morning and 17 units subQ at bedtime. 15 mL 3 09/17/2025 ActiveStart: 09-15-2025 End: 63-19-4828hemxcey glargine-yfgn 100 unit/mL (3 mL) insulin pen Indications: Essential hypertension affecting in third trimester Prime with 2 units and give 17 units subQ at bedtime. 15 mL 3 09/15/2025 09/17/2025 Discontinued Start: 46-40-6023ovdcktx glargine-yfgn 100 unit/mL (3 mL) insulin pen Indications: Essential hypertension affecting in third trimester Prime with 2 units and give 17 units subQ at bedtime. 15 mL 3 09/15/2025 ActiveStart: 09-10-2025 End: 95-64-6547evssffc glargine-yfgn 100 unit/mL (3 mL) insulin pen Indications: Essential hypertension affecting in third trimester Prime with 2 units and give 13 units subQ at bedtime. 15 mL 3 09/10/2025 09/15/2025 Discontinued Start: 44-88-9097mgzrcmw glargine-yfgn 100 unit/mL (3 mL) insulin pen Indications: Essential hypertension affecting in third trimester Prime with 2 units and give 13 units subQ at bedtime. 15 mL 3 09/10/2025 ActiveStart: 09-04-2025 End: 96-63-9743dqjjku 2 [IU] by subcutaneous injection once, then inject 10 [IU] by subcutaneous injection at bedtimeinsulin glargine-yfgn 100 unit/mL (3 mL) insulin pen Indications: Diet controlled gestational diabetes mellitus (GDM) in second trimester , Essential hypertension affecting in third trimester Prime with 2 units and give 10 units subQ at bedtime. 15 mL 3 09/04/2025 09/10/2025 DiscontinuedStart: 70-88-3113zcgjmo 2 [IU] by subcutaneous injection once, then inject 10 [IU] by subcutaneous injection at bedtimeinsulin glargine- yfgn 100 unit/mL (3 mL) insulin pen Indications: Diet controlled gestational diabetes mellitus (GDM) in second trimester , Essential hypertension affecting in third trimester Prime with 2 units and give 10 units subQ at bedtime. 15 mL 3 09/04/2025 Activeisopropyl alcohol 0.7 ml/ml medicated pad (20 sources)Start: 10-16-4719Vtmcwtw Swabs (Alcohol Prep Pad) 70 % pads Indications: Gestational diabetes mellitus (GDM), antepartum, gestational diabetes method of control unspecified ([facility]) , Elevated glucose tolerance testApply 1 Pad topically Daily Use four times daily to check FSBS. 150 each 3 08/20/2025 Activeiv contrast (will be provided with radiology test) (12 sources)Start: 39-70-1745un contrast (will be provided with radiology test) [...] 200 mg oral tablet (20 sources)beta-Adrenergic BlockerStart: 58-07-7667djrf 1 tablet by mouth in the morninglabetalol (Normodyne) 200 MG tablet Indications: Gestational Hypertension Take 1 tablet (200 mg) bymouth in the morning and 1 tablet (200 mg) before bedtime. 60 tablet 3 09/03/2025 ActiveStart: 07-30-2025 End: 70-50-9989vzor 1 tablet by mouth in the morninglabetalol (Normodyne) 100 MG tablet Indications: Hypertension, unspecified type Take 1 tablet (100 mg) by mouth in the morning and 1 tablet (100 mg) before bedtime. 60 tablet 5 07/30/2025 09/03/2025 DiscontinuedStart: 11-28-2022 End: 26-77-9155xgzcizdxh (Normodyne,Trandate) injection 20 mgStart: 11-28-2022 End: 85-20-2882lcgksqlzw (Normodyne,Trandate) injection 20 mgStart: 11-28-2022 End: 77-33-0169anprwreda (Normodyne,Trandate) 5 MG/ML injection - Pyxis ADS Override Pulltake 2 tablets by mouth three times dailylabetaloL (NORMODYNE) 100 mg tablet Take 2 tablets (200 mg total) by mouth 3 (three) times a day. Active magnesium oxide 400 mg oral tablet (9 sources)Start: 05-01-2025 End: 70-66-9089rvfi 1 tablet by mouth once dailymagnesium oxide (Mag-Ox) 400 MG tablet Indications: headache in first trimester ([facility])Take 1 tablet (400 mg) by mouth Daily 30 tablet 3 05/01/2025 05/31/2025 Activemeloxicam 15 mg oral tablet (15 sources)Nonsteroidal Anti-inflammatory DrugStart: 02-02-2021 End: 49-69-2848kuju 1 tablet by mouth once dailymeloxicam (Mobic) 15 MG tablet Indications: Chronic right shoulder pain , Scapular dyskinesis Take 1 tablet (15 mg) by mouth Daily 30 tablet 3 12/30/2024 05/01/2025 Ntstafaqmomi65 hr metoprolol succinate 25 mg extended release oral tablet (20 sources)beta-Adrenergic BlockerStart: 10-15-2024 End: 68-75-5408ncdk 1 tablet by mouth once dailymetoprolol succinate XL (Toprol- XL) 25 MG 24 hr tablet Indications: Hypertension, unspecified type Take 1 tablet by mouth daily 90 tablet 1 12/30/2024 ActiveStart: 01-99-2506xxyr 1 tablet by mouth once dailymetoprolol succinate XL (Toprol-XL) 25 MG 24 hr tablet Indications: Hypertension, unspecified type (CMS/HCC) Take 1 tablet by mouth daily 90 tablet 1 04/23/2024 ActiveStart: 64-40-7097bzkt 1 tablet by mouth once dailymetoprolol succinate XL (Toprol-XL) 25 MG 24 hr tablet Indications: Hypertension, unspecified type (CMS/HCC) Take 1 tablet by mouth daily 90 tablet 1 10/23/2023 ActiveStart: 02-27-2023 End: 48-92-2475nslbzeuacj succinate ER (TOPROL XL) 25 mg 24 hr tabletnaproxen 500 mg delayed release oral tablet (20 sources)Nonsteroidal Anti-inflammatory DrugStart: 33-47-2486izde 1 tablet by mouth twice dailynaproxen 500 mg oral enteric coated tablet 500 mg = 1 tab(s), Oral, BID, # 28 tab(s), Refills(s) 0 Start Date: 11/07/21 Status: Ordered Quantity: 28.0 Unit: tab(s) Repeat number: 1Start: 03-04-2021 End: 67-10-5997qclw 1 tablet by mouth twice dailynaproxen 500 mg Tab 500 mg = 1 tab(s), Oral, BID, Take one tab by mouth two times a day, # 14 tab(s), Refills(s) 0, [facility], 157, cm, 03/04/21 7:22:00 EDT, Height/Length Dosing,52, kg, 03/04/21 7:22:00 EDT, Weight Dosing Start Date: 03/04/21 Status: Ordered Quantity: 14.0 Unit:tab(s) Repeat number: 1Start: 11-02-2018 End: 37-15-7856fzrj 1 tablet by mouth twice daily as [...] (5 sources)Dihydropyridine Calcium Channel BlockerStart: 11-28-2022 End: 51-14-0749EPSVyiddeu XL (Procardia XL) 30 MG 24 hr tablet Take 1 tablet (30 mg) by mouth daily. Do not crush,chew, or split. Do not start before December 02, 2022. 90 tablet 0 12/02/2022 12/02/2023 Activenorethindrone acetate 5 mg oral tablet (20 sources)Start: 05-17-2023 End: 70-70-0298igai 2 tablets by mouth once dailynorethindrone (AYGESTIN) 5 mg tablet Take 2 tablets by mouth once daily. 60 tablet 5 01/03/2024 07/01/2024 ActiveStart: 04-11-2023 End: 49-61-5825prqe 1 tablet by mouth once dailynorethindrone (AYGESTIN) 5 mg tablet Take 1 tablet by mouth once daily. 30 tablet 11 04/11/2023 ActiveStart: 45-83-2408anom 1 tablet by mouth once dailyNorethindrone Acetate [...] mg/ml rectal foam (2 sources)Start: 07-14-2022 End: 42-51-9365mrhu 15 g rectal route twice dailyProctoFoam 1% Foam apply, Rectal, BID for 7 day(s), 15 gm, Refill(s) 0 Start Date: 07/14/22 Stop Date: 07/21/22 Status: OrderedPrenatal Multivitamins with Vitamin B Complex, Vitamin C, Minerals and L-Methylfolate oral capsule (9 sources)Start: 47-87-1688Hoqrlfsv Multivitamins with Vitamin B Complex, Vitamin C, Minerals and L-Methylfolate oral capsule 1 cap(s), Oral, Daily, 30 cap(s), Refill(s) 0 Start Date: 07/14/22 Status: Ordered Quantity: 30.0 Unit: cap(s) Repeat number: 1Start: 24-93-4426Hidrjwob Multivitamins with Vitamin B Complex, Vitamin C, Minerals and L-Methylfolate oral capsule 1 cap(s), Oral, Daily, 30 cap(s), Refill(s) 0 Start Date: 07/14/22 Status: OrderedPrenatal Vit-Fe Fumarate-FA ( Vitamin) 27-0.8 MG tablet (3 sources) Vit-Fe Fumarate-FA ( Vitamin) 27-0.8 MG tablet Take by mouth. 0 ActivePrenatal Vit-Fe Fumarate-FA ( Vitamins) 28-0.8 MG tablet (20 sources)Start: 05-01-2025 End: 15-70-5282xtom 1 tablet by mouth once dailyPrenatal Vit-Fe Fumarate-FA ( Vitamins) 28-0.8 MG tablet Indications: , unspecified gestational age ([facility]) , Encounter for supervision of normal first in first trimester([facility]) Take 1 tablet by mouth Daily 30 tablet 11 05/01/2025 05/01/2026 ActiveStart: 05-01-2025 End: 89-16-4281nsdi 1 tablet by mouth once dailyPrenatal Vit-Fe Fumarate-FA ( Vitamins) 28-0.8 MG tablet Indications: , unspecified gestational age , Encounter for supervision of normal first in first trimester Take 1 tablet by mouth Daily 30 tablet 11 05/01/2025 05/01/2026 Active SUMAtriptan 100 mg oral tablet (10 sources)Serotonin-1b and Serotonin-1d Receptor AgonistStart: 04-53-7900fghq 1 mg by mouth onceImitrex 100 mg Tab mg tab(s), Oral, Once, Refills(s) 0 Start Date: 02/02/21 Status: Ordered Repeat number: 1Surgical Lubricant Jelly gel (12 sources)Start: 02-75-1332Frejleoi Lubricant Jelly gel For MRI Female Pelvis, MRI department to provide. Administer intra-vaginal Surgilube immediately prior the MRI procedure (total amount to patient toleranace). 1 g 0 05/17/2023 Active Comment on above:For MRI Female Pelvis, MRI department to provide. Administer intra-vaginal Surgilube immediately prior the MRI procedure (total amount to patient toleranace).tiZANidine 4 mg oral tablet (3 sources)Central alpha-2 Adrenergic AgonistStart: 24-60-1481kxpl 1 mg by mouth every eight hourstiZANidine 4 mg Tab mg tab(s), Oral, q8hr, Refills(s) 0 Start Date: 02/02/21 Status: OrderedtraMADol hydrochloride 50 mg oral tablet (10 sources)Opioid AgonistStart: 98-92-7446hcet 1 tablet by mouth every four hours as needed for paintraMADol (ULTRAM) 50 mg tablet Indications: Pelvic pain in female Take 1 tablet by mouth every 4 hours as needed for pain. 20 tablet 0 08/30/2023 ActiveStart: 43-20-2184cltr 1 tablet by mouth every six hourstraMADol HCl - 50 MG Oral Tablet TAKE 1 TABLET Every 6 hours Quantity: 20 Refills: 0 Ordered: 18-Aug-2020 Charlene Rodriguez DO Start : 18-Aug-2020 ActiveStart: 03-12-2019 End: 85-74-5700ddba 1 tablet by mouth every four hours as needed for pain Tramadol 50 mg tablet Discontinued 50 MG PO Q4H as needed for pain 30 5 March 12, 2019 12:00am August 04, 2019 8:19amComment on above:Take 1 tablet by mouth every 4 hours as needed for pain.Vitamin D2 2000 intl units oral capsule (9 sources)Start: 75-36-1575uyhu 1 capsule by mouth once dailyVitamin D2 2000 intl units oral capsule Oral, Daily, Refills(s) 0 Start Date: 02/02/21 Status: Ordered Repeat number: 1Start: 16-88-6653Iygprej D2 2000 intl units oral capsule Oral, Daily, Refills(s) 0 Start Date: 02/02/21 Status: Ordered Completed/Discontinued Medications MedicationDrug Class(es)DatesSig (Normalized)Sig (Original)acetaminophen 325 mg oral tablet (4 sources)Start: 11-30-2022 End: 23-24-0144xnhc 1 tablet by mouth every six hours as needed for qktx033 mg, Oral, Every 6 hours PRN, mild pain (1-3), Starting on Constance 11/30/22 at 0422 Give in addition to any other pain medication ordered at same time for any pain indication. Maximumdose of acetaminophen is 4000 mg from all sources in 24 hours. Alternate ibuprofen and acetaminophen every 3 hours.Start: 11-28-2022 End: 14-60-8348odrzcdjladnjp (Tylenol) tablet 1,000 mgacetaminophen 300 mg / codeine phosphate 30 mg oral tablet (4 sources)Opioid AgonistStart: 01-19-2025 End: 53-23-2522hmap 1 tablet by mouth every six hours for painacetaminophen- codeine (Tylenol w/ Codeine #3) 300-30 MG tablet Indications: Pain in female genitalia on intercourse , Endometriosis Take 1 tablet by mouth every 6 (six) hours if needed for severe pain for up to 5 days 20 tablet 01/19/2025 01/24/2025 ExpiredStart: 07-22-2024 End: 18-68-0961qfah 1 tablet by mouth every six hours for painacetaminophen- codeine (Tylenol w/ Codeine #3) 300-30 MG tablet Indications: Dysmenorrhea, unspecified Take 1 tablet by mouth every 6 (six) hours if needed for severe pain for up to 5 days 20 tablet 07/22/2024 07/27/2024 Activeascorbic acid 500 mg oral tablet (5 sources)Vitamin CStart: 10-25-2018 End: 50-62-2576rbxu 2 tablets by mouth in the morningASCORBIC ACID WITH ISAURO HIPS 500 MG tablet Take 2 tablets (1,000 mg total) by mouth in the morning.0 10/25/2018 09/04/2025 Discontinued ()aspirin 325 mg / butalbital 50 mg / caffeine 40 mg oral capsule (11 sources)Platelet Aggregation Inhibitor, Barbiturate, Nonsteroidal Anti- inflammatory Drug, Central Nervous System Stimulant, Methylxanthine End: 02-40-5021rkeo 1 capsule by mouth every four hours as needed zexfrawfzj-ijdvnym-ymiqszqd (Fiorinal) 50-325-40 MG capsule Take 1 capsule [...] spray (2 sources)Standardized Chemical AllergenStart: 11-30-2022 End: 94-52-7297Aqegqjv, As needed, pain, , Starting on Constance 11/30/22 at 0608, Apply to perineal area. Patient is capable and may self administer at bedside.betamethasone 3 mg/ml / betamethasone acetate 3 mg/ml injectable suspension (2 sources)CorticosteroidStart: 11-28-2022 End: 24-01-7897wqlwstowimkdw acetate-betamethasone sodium phosphate (Celestone) injection 12 mgcalcium chloride 0.0014 meq/ml / potassium chloride 0.004 meq/ml / sodium chloride 0.103 meq/ml / sodium lactate 0.028 meq/ml injectable solution (2 sources)Start: 11-28-2022 End: 24-60-0734zwsn 125 mL intravenously every clpy371 mL/hr, IntraVENous, Continuous, Starting on Sun11/28/22 at 0100, Pre-Deliverycetirizine hydrochloride 10 mg oral tablet (17 sources)Histamine-1 Receptor AntagonistStart: 06-09-2025 End: 89-77-8380adwv 1 tablet by mouth once dailycetirizine (ZyrTEC ALLERGY) 10 MG tablet Indications: Allergy, sequela Take 1 tablet (10 mg) by mouth Daily 30 tablet 11 06/09/2025 07/15/2025 DiscontinuedchlordiazePOXIDE hydrochloride 5 mg / clidinium bromide 2.5 mg oral capsule (1 source)Anticholinergic, BenzodiazepineStart: 45-61-0425obvq 1 capsule by mouth every eight hourschlordiazePOXIDE-Clidinium 5-2.5 MG 1 capsule before meals Orally Three times a day for 30 day(s) May, Not-Taking chlorhexidine gluconate 20 mg/ml medicated pad (2 sources)Start: 11-28-2022 End: 33-19-2773xempa 1 dose topically every six hoursTopical, Every 6 hours, First dose on Sun11/28/22 at 0100, Pre-Delivery Apply to the affected area.&a mp;nbsp; Clean entire abdomen.cholecalciferol 0.125 mg oral capsule (5 sources)Vitamin DStart: 10-25-2018 End: 88-12-0623rkdw 1 capsule by mouth in the morningcholecalciferol, vitamin D3, (VITAMIN D3) 5,000 units capsule Take 1 capsule (5,000 Units total) bymouth in the morning. 0 10/25/2018 09/04/2025 Discontinued ()desogestrel 0.15 mg / ethinyl estradiol 0.03 mg oral tablet (11 sources)Progestin, EstrogenStart: 07-22-2024 End: 35-65-4515szqlcbdhfok-ethinyl estradiol (Apri) 0.15-30 MG-MCG tablet Indications: Dysmenorrhea, unspecified Take 1 tablet by mouth Daily 21 tablet 12 10/20/2024 01/19/2025 Discontinued (Other)diphenhydrAMINE (BENADryl) injection 25 mg (2 sources)Start: 11-30-2022 End: 49-61-0521dzhf 25 mg intravenously every six hours as neededdiphenhydrAMINE (BENADryl) injection 25 mgNorethindrone-E.Estradiol-Iron (1 source)EstrogenStart: 10-17-2017 End: 98-33-2709nibt 1 tablet by mouth once dailyNorethindrone-E.Estradiol-Iron (Lo Loestrin Fe) 1 mg-10 mcg (24)/10 mcg (2) tablet Discontinued 1 TAB PO Daily October 17, 2017 1:00am March 12, 2019 6:15amEthinyl Estradiol / Norethindrone (7 sources)EstrogenStart: 12-01-2018 End: 19-68-8080tkdi 0.05 ug by mouth once in the eveningnorethindrone ac-eth estradiol (MICROGESTIN 1/20) 1-20 mg-mcg per tablet Take 1 tablet by mouth in t he evening. 0 12/01/2018 09/04/2025 Discontinued ()Start: 12-01-2018 take 0.05 ug by mouth once in the eveningnorethindrone ac-eth estradiol (MICROGESTIN 1/20) 1-20 mg-mcg per tablet Take 1 tablet by mouth in the evening. 0 12/01/2018 ActiveStart: 60-51-5553ddxo 1 tablet by mouth once dailyDasetta oral tablet 1 tab(s), Oral, Daily, Refill(s) 0, control/menstrual regulation Start Date: 11/23/16 Status: Orderedfamotidine 20 mg oral tablet (2 sources)Histamine-2 Receptor AntagonistStart: 11-30-2022 End: 41-93-8773hrjp 20 mg by mouth twice daily as needed for gastroesophageal reflux zyuaizg67 mg, Oral, 2 times daily PRN, heartburn, Starting on Constnace 11/30/22 at 0608, Renal dose per pharmacy for peptic ulcer prophylaxis.ferrous sulfate 325 mg oral tablet (8 sources)Start: 11-30-2022 End: 22-51-3037jvgn 325 mg by mouth twice daily at yftjhnld931 mg, Oral, 2 times daily with meals, First dose on Constance 11/30/22 at 0800, Start if Hgb le ss than 10. End: 98-25-2549oelz 1 tablet by mouth in the morningFerrous Sulfate (IRON PO) Take 1 tablet by mouth in the morning. 09/16/2025 Discontinuedtake 1 tablet by mouth in the morningFerrous Sulfate (IRON PO) Take 1 tablet by mouth in the morning. ActiveFLUoxetine 20 mg oral capsule (17 sources)Serotonin Reuptake InhibitorStart: 85-25-6122tcrl 1 capsule by mouth once dailyFLUoxetine HCl - 20 MG Oral Capsule TAKE 1 CAPSULE Daily Quantity: 30 Refills: 11 Ordered: 02-Jun-2021 Kuldip DAY Charlene Start : 02-Jun-2021 Active Start: 11-02-2018 End: 00-13-6803axzo 1 capsule by mouth once dailyFluoxetine (Prozac) 20 mg capsule Discontinued 20 MG PO Daily November 02, 2018 1:00am August 04, 2019 8:19amtake 1 capsule by mouth once dailyFLUoxetine (PROZAC) 10 mg capsule Take 10 mg by mouth once daily. 0 ActiveComment on above:Take 10 mg by mouth once daily.fluticasone propionate 0.05 mg/actuat metered dose nasal spray (16 sources)CorticosteroidStart: 06-22-2025 End: 51-81-9940ywnb 1 spray(s) nasal route once dailyfluticasone (Flonase) 50 MCG/ACT nasal spray Indications: Sinusitis, unspecified chronicity, unspecified location Administer 1 spray into each nostril Daily Shake gently. Before first use, prime pump. After use, clean tip and replace cap. 16 g 12 06/22/2025 07/15/2025 Discontinued End: 86-75-8067ijfy 1 spray(s) nasal route in the morningfluticasone (Flonase) 50 MCG/ACT nasal spray Administer 1 spray into affected nostril(s) in the morn ing. 09/16/2025 Discontinued End: 93-51-9688bjjb 1 spray(s) nasal route in the morningfluticasone propionate (FLONASE) 50 mcg/actuation nasal spray Administer 1 spray into each nostril in the morning. 09/04/2025 Discontinued ()lanolin 1000 mg/ml topical cream (2 sources)Start: 11-30-2022 End: 19-24-7262Ysrubrt, As needed, dry skin, nipple discomfort, Starting on Sun11/30/22 at 0608, Apply to affected area.500 ml magnesium sulfate 40 mg/ml injection (4 sources)Start: 11-28-2022 End: 18-46-1184vxxavaovy sulfate 20 GM/500ML infusionStart: 11-28-2022 End: 39-96-7949hdbxyqgjp sulfate 20 GM/500ML infusion - Pyxis ADS Override Pull metoclopramide 10 mg oral tablet (2 sources)Dopamine-2 Receptor AntagonistStart: 34-44-8494cvmu 1 tablet by mouth every eight hoursReglan 10 MG 1 tablet before meals Orally tid for 30 day(s) March, Not-TakingmiSOPROStol 0.2 mg oral tablet (2 sources)Prostaglandin E1 AnalogStart: 11-30-2022 End: 68-82-5718apSVPOCBqgi (Cytotec) tablet 1,000 mcgStart: 11-30-2022 End: 29-88-0368ljVUQDRVxkq (Cytotec) tablet 1,000 mcgmiSOPROStol (Cytotec) split tablet 25 mcg (2 sources)Start: 11-28-2022 End: 11-46-3096bbey 1 tablet vaginal route every four hoursmiSOPROStol (Cytotec) split tablet 25 mcg1 ml morphine sulfate 4 mg/ml injection (4 sources)Opioid AgonistStart: 11-28-2022 End: 51-67-6603xrcepwxi sulfate (PF) injection 4 mgnitrofurantoin, macrocrystals 25 mg / nitrofurantoin, monohydrate 75 mg oral capsule (6 sources)Nitrofuran AntibacterialStart: 20-07-9503Jbaoyabyzqzvvf Monohyd Macro 100 MG Oral Capsule TAKE 1 CAPSULE Other Please take one capsule aftersexual intercourse to prevent UTI Quantity: 30 Refills: 11 Ordered: 01-Apr-2021 Teri Chau MD Start : 01-Apr-2021 Active2 ml ondansetron 2 mg/ml injection (12 sources)Serotonin-3 Receptor AntagonistStart: 11-29-2022 End: 95-84-5877kdya 4 mg intravenously every six hours as needed for nausea and vomitingondansetron (Zofran) injection 4 mgStart: 74-11-6956dsxz 1 tablet by mouth every six hours as needed for nauseaZofran 4 mg Tab 1 tab(s), Oral, q6hr, PRN Nausea, # 8, Refills(s) 0 Start Date: 07/14/22 Status: Ordered Quantity: 8.0 Unit: Repeat number: 1Start: 09-65-3497toww 1 tablet by mouth three times daily Zofran 4 MG 1 tablet Orally THREE TIMES A DAY for 30 day(s) May, Not-Takingondansetron ODT (Zofran-ODT) disintegrating tablet 4 mg (2 sources)Start: 11-30-2022 End: 61-80-9884ogcp 1 tablet by mouth every eight hours [...] for 1 hour. Then discontinue.Start: 11-29-2022 End: 20-35-0687uakvhkuw (Pitocin) 30 units in 500 mL infusionStart: 11-29-2022 End: 52-57-0413ykupezkq (Pitocin) 30 units in 500 mL infusionphenazopyridine hydrochloride 200 mg oral tablet (10 sources)Start: 13-95-0178tniq 1 tablet by mouth three times dailyPyridium 200 mg Tab 200 mg = 1 tab(s), Oral, TID, Take one tab by mouth three times a day for threedays, # 9 tab(s), Refills(s) 0, Pharmacy: [facility] 858, 157, cm, 03/04/21 7:22:00 EDT, Height/Length Dosing, 52, kg, 03/04/21 7:22:00 EDT, Weight Dosing Start Date: 03/04/21 Status: Ordered Quantity: 9.0 Unit: tab(s) Repeat number: 1predniSONE 10 mg oral tablet (3 sources)Start: 09-10-2023 End: 38-09-6985wnor 2 tablets by mouth twice daily, then [...] 09/10/2023 01/10/2024 Discontinued (Therapy completed)Start: 03-12-2019 End: 13-34-5935pvnc 3 tablets by mouth once daily at mealtimePrednisone 20 mg tablet Discontinued 60 MG PO Daily 9 March 12, 2019 12:00am August 04, 2019 8:18am administer with food or milkpromethazine hydrochloride 12.5 mg oral tablet (13 sources)PhenothiazineStart: 05-25-2025 End: 08-71-3065kofe 1 tablet by mouth every six hours [...] nausea. 30 tablet 2 508/ Discontinued End: 53-09-0486encx 12.5 mg rectal route every six hours as needed for nausea and vomitingpromethazine (PHENERGAN) 12.5 mg suppository Insert 1 suppository (12.5 mg total) into the rectum every 6 (six) hours as needed for nausea or vomiting. 09/04/2025 Discontinued ()rizatriptan 5 mg disintegrating oral tablet (5 sources)Serotonin-1b and Serotonin-1d Receptor AgonistStart: 10-24-2018 End: 30-22-7471ywjhezvezud MANAGER GAMING (MAXALT-MANAGER GAMING) 5 mg disintegrating tablet Dissolve 1 tablet (5 mg total) on tongue asneeded. 0 10/24/2018 09/04/2025 Discontinued ()5 ml sodium chloride 9 mg/ml injection (2 sources)Start: 11-28-2022 End: mL, IntraVENous, Every 12 hours scheduled (2 times per day), First dose on Sun11/28/22 at 0900, Pre-Deliveryvitamin b12 1 mg extended release oral tablet (5 sources)Vitamin O90Pkitg: 10-25-2018 End: 68-74-2082exvy 1 tablet by mouth in the morningcyanocobalamin, vitamin B- 12, (VITAMIN B-12) 1,000 mcg tablet extended release Take 1 tablet (1 mg total) by mouth in the morning. 0 10/25/2018 09/04/2025 Discontinued ()witch yesi 500 mg/ml medicated pad (2 sources)Start: 11-30-2022 End: 66-92-5534Zttcfxm, As needed, hemorrhoids, For perineal pain or discomfort, Starting on Sun11/30/22 at 0608, Apply to perineal area. Patient is capable and may self administer at bedside. Problems Active Problems Problem ClassificationProblemDateDocumented DateEpisodic/ChronicAllergic reactions (1 source)Allergic reaction; Translations: [Allergy, unspecified, initial encounter]76-85-2662CgrvrbmjOpezziy on above:Problem List clean-up per request of Phys. EHR CmteAnxiety disorders (20 sources)Anxiety; Translations: [Anxiety state, unspecified]Onset: 10-08-2020 26-47-2132VhistjvDjqmcnd on above:Problem List clean-up per request of Phys. EHR CmteCardiac dysrhythmias (20 sources)Paroxysmal tachycardia; Translations: [Paroxysmal tachycardia, unspecified]Onset: 645162-06-0879OxerkvkOvmkdleaprvfa of surgical procedures or medical care (1 source)Postoperative retention of urine; Translations: [Other postprocedural complications and disorders of genitourinary system]70-12-3880IhblhktyDeygpfc on above:Problem List clean-up per request of Phys. EHR CmteDiabetes mellitus without complication (2 sources)Abnormal glucose tolerance test; Translations: [Other abnormal glucose]05-31-2349DnlidkcjBadpecgu or abnormal glucose tolerance complicating ; childbirth; or the puerperium (20 sources)Gestational diabetes mellitus; Translations: [Gestational diabetes mellitus in , diet controlled]Onset: 807927-52-1150Zrmslbrn Endometriosis (20 sources)Endometriosis (clinical); Translations: [Endometriosis, site unspecified]Onset: 59-32-0205JzgdoqsKbazkquse hypertension (20 sources)Hypertensive disorder; Translations: [Essential (primary) hypertension]Onset: 561246-20-4050FtexrtqLvosnwogztgcm symptoms and ill- defined conditions (20 sources)Microscopic hematuria; Translations: [Nocturia]96-30-2498Xyypaqip Comment on above:Problem List clean-up per request of Phys. EHR CmteHeadache; including migraine (20 sources)Migraine; Translations: [Migraine, unspecified, not intractable, without status migrainosus]Onset: 452203-03-2274DyslupxKwsgrhf on above: Problem List clean-up per request of Phys. EHR CmteHeadache; including migraine (14 sources)Headache; Translations: [Headache, unspecified]Onset: 01-31-2023 16-76-7080SyejwkbsQhobseuqiqo (1 source)Hemorrhoids; Translations: [Unspecified hemorrhoids]Onset: 07-14-2022 EpisodicHypertension complicating ; childbirth and the puerperium (20 sources)Hypertension complicating ; Translations: [Unspecified maternal hypertension, unspecified trimester]Onset: hronic Hypertension complicating ; childbirth and the puerperium (16 sources)Severe pre-eclampsia complicating childbirth; Translations: [Severe pre-eclampsia, third trimester]Onset: 20-73-3676IffeydiwGynzk disorders and dislocations; trauma-related (20 sources)Disorder of left patellofemoral joint; Translations: [Patellofemoral disorders, left knee]Onset: 807226-35-5678ZxqijezKzekd disorders and dislocations; trauma-related (20 sources)Disorder of right patellofemoral joint; Translations: [Patellofemoral disorders, right knee]Onset: hronic Menstrual disorders (20 sources)Dysmenorrhea; Translations: [Dysmenorrhea, unspecified]Onset: 155679-39-1041XrdexaeAzfyos and vomiting (1 source)Nausea and vomiting; Translations: [Nausea with vomiting, unspecified] EpisodicNonspecific chest pain (2 sources)Chest pain; Translations: [Chest pain, unspecified]40-25-2484Ckehpdmg Comment on above:Problem List clean-up per request of Phys. MIKAYLA CmteNutritional deficiencies (20 sources)Vitamin D deficiency; Translations: [Vitamin D deficiency, unspecified]Onset: 323895-73-4220CkdxkewPcpil acquired deformities (20 sources)Scoliosis deformity of spine; Translations: [Scoliosis, unspecified] Onset: 860457-26-9352BjmeuubJvtxv bone disease and musculoskeletal deformities (10 sources)Disorder of susp82-21-0193XsklcjjuClvjgze on above:right shoulder right shoulderOther circulatory disease (1 source)Elevated blood-pressure reading without diagnosis of hypertension; Translations: [Elevated blood-pressure reading, without diagnosis of hypertension]Onset: 26-40-3283TbngakmuIcxzk complications of ; puerperium affecting management of mother (1 source)Delayed AND/OR secondary hemorrhage; Translations: [Delayed and secondary hemorrhage]Onset: 40-75-5090KurofpofPtsxk complications of (1 source)Finding related to ; Translations: [Other specified related conditions, unspecified trimester]Onset: 12-24-4503WrmzsnhxRpkei complications of (1 source)Supervision of with other poor reproductive or obstetric history, unspecified trimester; Translations: [Supervision of with other poor reproductive or obstetric history, unspecified trimester]Onset: 71-62-6994JkhopczrChfsx connective tissue disease (1 source)Diastasis recti; Translations: [Separation of muscle (nontraumatic), other site]EpisodicOther female genital disorders (10 sources)Abnormal uterine cdmopwnc69-49-6634BvxyueiYixoz female genital disorders (1 source)Dyspareunia; Translations: [Other specified dyspareunia]ChronicOther female genital disorders (20 sources)Pain in female genitalia on intercourse; Translations: [Unspecified dyspareunia]Onset: 271967-67-5251EpqzlbgPmhsu female genital disorders (1 source)Unspecified dyspareunia; Translations: [Unspecified dyspareunia]Onset: 33-64-5869TxdcwvtLzimp female genital disorders (2 sources)Pelvic floor dysfunction; Translations: [Other specified conditions associated with female genital organs and menstrual cycle]EpisodicOther gastrointestinal disorders (18 sources)Constipation; Translations: [Constipation, unspecified]Onset: 741676-93-8169JsiqyguiDrtundx on above:Problem List clean-up per request of Phys. EHR CmteOther gastrointestinal disorders (1 source)Constipation, unspecified; Translations: [Constipation, unspecified] Onset: 83-24-9165KskvuzkjPfpwy hereditary and degenerative nervous system conditions (20 sources)Finding of scapular structure; Translations: [Other specified extrapyramidal and movement disorders]Onset: 487434-31-9573PmjogpoRgsxg nervous system disorders (9 sources)Chronic pain; Translations: [Other chronic pain]Onset: 03-29-2023 49-11-6510QhvxpmiVsuqr nervous system disorders (1 source)Other chronic pain; Translations: [Chronic pelvic pain in female] Onset: 11-16-4348GditkorWyuuw nervous system disorders (1 source)Paresthesia of left upper limb; Translations: [Paresthesia of skin] 93-31-5909HqegelayCkfhckc on above:Problem List clean-up per request of Phys. EHR CmteOther nervous system disorders (1 source)Tremor; Translations: [Tremor, unspecified]26-80-8844PgdouzmtMxvxdmw on above:Problem List clean-up per request of Phys. EHR CmteOther nutritional; endocrine; and metabolic disorders (20 sources)Body mass index 30+ - obesity; Translations: [Obesity, unspecified] Onset: 264064-91-8619MlurijnSzfti and delivery including normal (18 sources); Translations: [Encounter for supervision of normal , unspecified, unspecified trimester]81-71-6155WycbovlvEdoxb screening for suspected conditions (not mental disorders or infectious disease) (8 sources)Elevated liver enzymes level; Translations: [Other specified abnormal findings of blood chemistry]Onset: 04-18-2022 Resolved: 07-03-7906DgvuxvrcMbgqu upper respiratory disease (20 sources)Allergic rhinitis due to pollen; Translations: [Allergic rhinitis due to pollen]Onset: 171311-89-9663NyvumvgQenqu upper respiratory infections (2 sources)Sinusitis; Translations: [Chronic sinusitis, unspecified]06-22-2025 ChronicResidual codes; unclassified (2 sources)Contraception ; Translations: [Other specified health status] 24-60-2086CoofrqmgQfmkkfyn codes; unclassified (2 sources)Gestation period, 13 weeks; Translations: [13 weeks gestation of ]15-78-2223KxbcgxicYynfridj codes; unclassified (2 sources)Gestation period, 17 weeks; Translations: [17 weeks gestation of ]59-99-8902YehnburkFypbicug codes; unclassified (2 sources)Gestation period, 20 weeks; Translations: [20 weeks gestation of ]80-13-2761MtupsetdHrilsbii codes; unclassified (2 sources)Gestation period, 24 weeks; Translations: [24 weeks gestation of ]01-86-7638BuvnbfspNgpvvvov codes; unclassified (2 sources)Gestation period, 26 weeks; Translations: [26 weeks gestation of ]04-74-7531YdhlgkiyCukpuxnf codes; unclassified (2 sources)Gestation period, 27 weeks; Translations: [27 weeks gestation of ]60-77-0003KolohqvwEljgpmil codes; unclassified (1 source)Gestation period, 28 weeks; Translations: [28 weeks gestation of ]84-32-2788VmrrakwpHoeqgqwv codes; unclassified (1 source)28 weeks gestation of ; Translations: [28 weeks gestation of ]Onset: 11-43-4505WcfactymTgiovgat codes; unclassified (2 sources)Gestation period, 29 weeks; Translations: [29 weeks gestation of ]69-28-9864BnscxeilAfaojdfj codes; unclassified (2 sources)Gestation period, 31 weeks; Translations: [31 weeks gestation of ]29-86-2933DfubibkqUkqnxlbawbz; intervertebral disc disorders; other back problems (20 sources)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; Translations: [Other cervical disc displacement, unspecified cervical region] Onset: 429131-24-8122VkqvjqmUosxvweccrbf (1 source)MFM consultOnset: 61-50-9188Pvundmgqbqkk (1 source)Gestational DiabetesOnset: 60-59-5194Pobdnqx tract infections (20 sources)Recurrent urinary tract infection; Translations: [Urinary tract infection, site not specified]Onset: 380828-33-4210Qrmrnckc Past or Other Problems Problem ClassificationProblemDateDocumented DateEpisodic/ChronicAbdominal pain (20 sources)Epigastric pain; Translations: [Epigastric pain]Onset: 07-14-2022 EpisodicAcquired foot deformities (20 sources)Acquired equinus deformity of foot; Translations: [Other acquired deformities of unspecified foot]Onset: 125121-80-0165QyrweukrUwayoes dysrhythmias (20 sources)Tachycardia; Translations: [Tachycardia, unspecified]Onset: 542630-90-9396CnulwgdeNbwypxuwufh deficiencies (20 sources)Cobalamin deficiency; Translations: [Deficiency of other specified B group vitamins]Onset: 478530-67-6928QzuxaidjMpxlq connective tissue disease (20 sources)Posterior calcaneal exostosis; Translations: [Calcaneal spur, unspecified foot]Onset: 106604-99-8007FxwmiajcUvlxm disorders of stomach and duodenum (20 sources)Gastroparesis syndrome; Translations: [Gastroparesis]Onset: 640819-87-1128BewwyrhfJdkbr female genital disorders (1 source)Other specified conditions associated with female genital organs and menstrual cycle; Translations:[High-tone pelvic floor dysfunction]Onset: 67-93-4979ZdmmkerhBszeb female genital disorders (20 sources)Chronic pelvic pain of female; Translations: [Chronic pelvic pain in female]Onset: 549602-44-0747PmrzclfhLouol gastrointestinal disorders (20 sources)Swallowing painful; Translations: [Dysphagia, unspecified]Onset: 428891-08-9615MqoxtljlVjtnz gastrointestinal disorders (20 sources)Diarrhea; Translations: [Diarrhea, unspecified]Onset: 03-24-2025 11-99-6679HsswwjjuZmpkz non-traumatic joint disorders (20 sources)Chronic pain of right upper limb; Translations: [Pain in right shoulder]Onset: 895313-20-8481JqrszfeyOmswn nutritional; endocrine; and metabolic disorders (16 sources)Loss of appetite; Translations: [Anorexia]Onset: 05-27-2020 34-49-6130YuyqlfenPczbqxl (15 sources)Vasovagal syncope; Translations: [Syncope and collapse]Onset: 889776-56-9821LerbecqcUhjvfyshdgys (9 sources)PregnancyOnset: 07-14-2022 Resolved: 267997-13-4118RUMQMAK: Highlighted row has been ruled out! Unclassified (1 source)No known active -54-2035 Results Test NameValueInterpretationReference RangeFacilityUS OB BPP W NON-STRESS on 33-20[place]2823[place] [address] Ultrasound Report Signed Patient: JUHI GAMA MR#: [id number] : 1995 Acct:[id number] Age/Sex: 30 / F ADM Date: 10/03/25 Loc: US Attending Dr: Steph Keane Ordering Physician: Steph Keane Date of Service: 10/03/25 Procedure(s): US OB BPP w non-stress Accession Number(s): [id number] cc: Steph Keane; KAFTAN,G KENNETH The [address] [address] Patient Name: JUHI GAMA MRN: [facility]:[id number] date: 1995 Sex: F Assigned Patient Location: US Current Patient Location: Accession/Order Number: [id number] Exam Date: 10/03/2025 10:53 Report Date: 10/03/2025 [...] Faria M.D. 10/03/2025 11:36 AM Dictation Location: [place] [address] Electronically authenticated by: [id number] Y Date: 10/03/2025 11:36 Dictated By: Will Faria M.D. Signed By: 10/03/25 1138 DD/ 1136 TD/TT: Parts Salesperson:TBHRadiology, Radiologist, MD - 10/03/2025 [place] [address] Ultrasound Report Signed Patient: JUHI GAMA MR#: [id number] : 1995 Acct:[id number] Age/Sex: 30 / F ADM Date: 10/03/25 Loc: US Attending Dr: Steph Keane Ordering Physician: Steph Keane Date of Service: 10/03/25 Procedure(s): US OB BPP w non-stress Accession Number(s): [id number] cc: Steph Keane; Yomaira BELTRAN [place] [id number] Patient Name: JUHI GAMA MRN: [id number] date: 1995 Sex: F Assigned Patient Location: US Current Patient Location: Accession/Order Number: [id number] Exam Date: 10/03/2025 10:53 Report Date: 10/03/2025 [...] Faria M.D. 10/03/2025 11:36 AM Dictation Location: [place] [address] Electronically authenticated by: [id number] Y Date: 10/03/2025 11:36 Dictated By: Will Faria M.D. Signed By: 10/03/25 1138 DD/ 1136 TD/TT: Parts Salesperson: [facility] HealthcareRadiology Study observation (narrative)NOMS HealthcareUS OB BPP W NON-STRESSOrdered By: Radiologist Radiology on 94-43-9971DPHH Healthcare Work Phone: Urinalysis macro (dipstick) panel (U)on 09-30-2025 Bilirubin, UANegativeNegative - 4(70) +++ mg/dLNOMS HealthcareBlood, UANegative Negative - 50 Teodoro/mcLNOMS HealthcareClarity, UAClearNOMS HealthcareColor, UA YellowNONV HealthcareGlucose, UANegativeNegative - 2000(110) ++++ mg/dLNONV HealthcareInterpretation and review of laboratory resultsNormalNOSt. Luke's Hospital Ketones, UANegativeNegative - 160(16) ++++ mg/dLNONV HealthcareLeukocytes, UA NegativeNegative - 500+++ Robinson/mcLNONV HealthcareNitrite, UANegativeNegative - PositiveNONV HealthcarepH, UA6.05 - 9NONV HealthcareProtein, UANegativeNegative - 2000(20) ++++ mg/dLNONV HealthcareSpec Grav, UA1.0101 - 1.03NONV Healthcare Urobilinogen, UA1.00.2 - 12 mg/dLNOSaint Louis University [facility] HealthcareUS OB BPP W NON-STRESSon 72-34-6963Jbn[place], [place] [address] Ultrasound Report Signed Patient: JUHI GAMA MR#: [id number] : 1995 Acct:[id number] Age/Sex: 30 / F ADM Date: 09/26/25 Loc: US Attending Dr: Steph Keane Ordering Physician: Steph Keane Date of Service: 09/26/25 Procedure(s): US OB BPP w non-stress Accession Number(s): [id number] cc: Steph Keane; Yomaira BELTRAN [place] [id number] Patient Name: JUHI GAMA MRN: [id number] date: 1995 Sex: F Assigned Patient Location: Current Patient Location: Accession/Order Number: [id number] Exam Date: 09/26/2025 11:50 Report Date: 09/26/2025 14:50 At the request of: STEPH KEANE Procedure: US OB BPP w non-stress Ultrasound biophysical profile INDICATION: -induced hypertension COMPARISON: 09/19/2025 FINDINGS IMPRESSION: Cephalic position. 8 out of 8 score biophysical profile. LEONEL 11.6 cm. heart 129 bpm Impression dictated by: Chu Amaya M.D. 09/26/2025 2:50 PM Dictation Location: [facility]-29 Electronically authenticated by: [id number] Y Date: 09/26/2025 14:50 Dictated By: hCu Amaya M.D. Signed By: 09/26/25 1452 DD/ 49 TD/TT: Parts Salesperson:TBHRadiology, Radiologist, - 09/26/2025 [place] [address] Ultrasound Report Signed Patient: JUHI GAMA MR#: [id number] : 1995 Acct:[id number] Age/Sex: 30 / F ADM Date: 09/26/25 Loc: US Attending Dr: Steph Keane Ordering Physician: Steph Keane Date of Service: 09/26/25 Procedure(s): US OB BPP w non-stress Accession Number(s): [id number] cc: Le Keane G ROBERT [place] [address] Patient Name: JUHI GAMA MRN: [facility]:[id number] date: 1995 Sex: F Assigned Patient Location: Current Patient Location: Accession/Order Number: [id number] Exam Date: 09/26/2025 11:50 Report Date: 09/26/2025 14:50 At the request of: STEPH KEANE Procedure: US OB BPP w non-stress Ultrasound biophysical profile INDICATION: -induced hypertension COMPARISON: 09/19/2025 FINDINGS IMPRESSION: Cephalic position. 8 out of 8 score biophysical profile. LEONEL 11.6 cm. heart 129 bpm Impression dictated by: Chu mAaya M.D. 09/26/2025 2:50 PM Dictation Location: RADIO-PC-29 Electronically authenticated by: [id number] Y Date: 09/26/2025 14:50 Dictated By: Chu Amaya M.D. Signed By: 09/26/25 145 DD/ 145 TD/TT: Parts Salesperson: LANETTE HealthcareRadiology Study observation (narrative)NOMS HealthcareUS OB BPP W NON-STRESSOrdered By: Radiologist Radiology on 49-74-8855DLWY Healthcare Work Phone: US OB BPP W NON-STRESSon 70-53[place] [address] Ultrasound Report Signed Patient: JUHI GAMA MR#: [id number] : 1995 Acct:[id number] Age/Sex: 30 / F ADM Date: 09/19/25 Loc: US Attending Dr: Steph Keane Ordering Physician: Steph Keane Date of Service: 09/19/25 Procedure(s): US OB BPP w non-stress Accession Number(s): [id number] cc: Steph Keane; Yomaira BELTRAN [place] [id number] Patient Name: JUHI GAMA MRN: [facility]:[id number] date: 1995 Sex: F Assigned Patient Location: [facility] Current Patient Location: Accession/Order Number: [id number] Exam Date: 09/19/2025 10:06 Report Date: 09/19/2025 [...] Morillo M.D. 09/19/2025 12:17 PM Dictation Location: [employer] Electronically authenticated by: [id number] Y Date: 09/19/2025 12:17 Dictated By: Jp Morillo D.O. Signed By: 09/19/25 1219 DD/ 16 TD/TT: Parts Salesperson:SATNAMadiolRandell malagon, - 09/19/2025 [place] [id number] Ultrasound Report Signed Patient: JUHI GAMA MR#: [id number] : 1995 Acct:[id number] Age/Sex: 30 / F ADM Date: 09/19/25 Loc: US Attending Dr: Steph Keane Ordering Physician: Steph Keane Date of Service: 09/19/25 Procedure(s): US OB BPP w non-stress Accession Number(s): [id number] cc: Steph Keane; Yomaira BELTRAN [place] [id number] Patient Name: JUHI GAMA MRN: [facility]:[id number] date: 1995 Sex: F Assigned Patient Location: [facility] Current Patient Location: Accession/Order Number: [id number] Exam Date: 09/19/2025 10:06 Report Date: 09/19/2025 [...] Morillo M.D. 09/19/2025 12:17 PM Dictation Location: [employer] Electronically authenticated by: [id number] Y Date: 09/19/2025 12:17 Dictated By: Jp Morillo D.O. Signed By: 09/19/25 1219 DD/ 16 TD/TT: Parts Salesperson: LANETTE HealthcareRadiology Study observation (narrative)NOM[facility] HealthcareUS OB BPP W NON-STRESSOrdered By: Radiologist Radiology on 99-45-4961ZYDYHeartland Behavioral Health Services Work Phone: Urinalysis macro (dipstick) panel (U)on 09-16-2025 Bilirubin, UANegativeNegative - 4(70) +++ mg/dLHeartland Behavioral Health ServicesBlood, UANegative Negative - 50 Teodoro/mcLHeartland Behavioral Health ServicesClarity, UAClearNONV HealthcareColor, UA YellowNOSt. Luke's HospitalGlucose, UANegativeNegative - 2000(110) ++++ mg/dLHeartland Behavioral Health ServicesInterpretation and review of laboratory resultsNormalHeartland Behavioral Health Services Ketones, UANegativeNegative - 160(16) ++++ mg/dLHeartland Behavioral Health ServicesLeukocytes, UA NegativeNegative - 500+++ Robinson/[facility] Children - GreenvilleNitrite, UANegativeNegative - PositiveFILLMORE COMMUNITY MEDICAL CENTER HealthcarepH, UA6.05 - 9NONV HealthcareProtein, UANegativeNegative - 2000(20) ++++ mg/dLHeartland Behavioral Health ServicesSpec Grav, UA1.0101 - 1.03[facility] Urobilinogen, UA1.00.2 - 12 mg/dLBarnes-Jewish [facility] HealthcareALL BUNon 66-74-2151Jslg nitrogen [Mass/Vol]8 mg/dL7.0 - 18.0 mg/dLResearch Medical Center[facility] URIC ACIDon 67-26-3407Ncpol [Mass/Vol]3.5 mg/dL2.6 - 6.0 mg/dLHeartland Behavioral Health ServicesCC ALT on 33-53-6262FVK [Catalytic activity/Vol]40 U/L14 - 59 U/[facility] SystemCCF AST on 21-36-3484MSL [Catalytic activity/Vol]24 U/L15 - 37 U/[facility] Health SystemNo Panel Informationon 86-38-4257Adzvmdwnmjghej and review of laboratory results AbnormalNOSt. Luke's HospitalCLINISYNCNExcelsior Springs Medical CenterTB CREATININEon 09-03-2025 Creatinine [Mass/Vol]0.42 mg/dLLow0.55 - 1.02 mg/dLHeartland Behavioral Health ServicesGFR/1.73 sq M.predicted CKD-EPI (S/P/Bld) [Vol rate/Area]>60>=60 mL/min/1.73m 2NExcelsior Springs Medical CenterTB EGFR-NON AF BELIZEAN>60>=60 mL/min/1.73m 2NOMS HealthcareTB URINE T PROTEIN CREAT RATIOon 03-94-9052INOSOHCAQQ URINE RANDOM<13.84Sqe98.00 - 300.00 mg/dLNONV HealthcareTOTAL PROTEIN URINE RANDOM<6.0NINF - 11.9 mg/dLFILLMORE COMMUNITY MEDICAL CENTER HealthcareUrinalysis macro (dipstick) panel (U)on 74-99-2127Jhshlhloi, UA NegativeNegative - 4(70) +++ mg/dLFILLMORE COMMUNITY MEDICAL CENTER HealthcareBlood, UANegativeNegative - 50 Teodoro/mcLFILLMORE COMMUNITY MEDICAL CENTER HealthcareClarity, UAClearNONV HealthcareColor, UAYellowNONV HealthcareGlucose, UANegativeNegative - 2000(110) ++++ mg/dLFILLMORE COMMUNITY MEDICAL CENTER Healthcare Interpretation and review of laboratory resultsNormalFILLMORE COMMUNITY MEDICAL CENTER HealthcareKetones, UA NegativeNegative - 160(16) ++++ mg/dLFILLMORE COMMUNITY MEDICAL CENTER HealthcareLeukocytes, UANegative Negative - 500+++ Robinson/[facility] Children - GreenvilleNitrite, UANegativeNegative - Positive NOM HealthcarepH, UA6.55 - 9NONV HealthcareProtein, UANegativeNegative - 2000(20) ++++ mg/dLFILLMORE COMMUNITY MEDICAL CENTER HealthcareSpec Grav, UA1.0051 - 1.03NONV Healthcare Urobilinogen, UA2.00.2 - 12 mg/dLSelect Specialty Hospital - Winston-SalemTB TOTAL PROTEIN 24 HOUR URINEon 43-06-0003Obahxjjhwjmyub and review of laboratory results AbnormalNONV HealthcareProtein (U) [Mass/Vol]22.6 mg/dLHighNINF - 11.9 mg/dLHeartland Behavioral Health ServicesTB TOTAL PROTEIN 24 HOUR DHSDO541.6NINFNOSt. Luke's HospitalTOTAL VOLUME 24 HOUR QKWAW828iP/24hrNONV HealthcareCLINISYNCNINTEGRIS BAPTIST [facility] HealthcareALL CBC WITH AUTO DIFFon 07-66-9630KGRNWNAZV ABSOLUTE AUTO0.1NOMS HealthcareBasophils/100 WBC (Bld)0.5 %0.2 - 2.0 %NOMS HealthcareEosinophils/100 WBC (Bld)1.4 %0.9 - 7.0 % [facility] HealthcareErythrocyte distribution width (RBC) [Ratio]13 %11.0 - 15.0 %[facility] HealthcareHematocrit (Bld) [Volume fraction]34.4 %Low36.0 - 48.0 %[facility] Health ServicesHemoglobin (Bld) [Mass/Vol]11.3 g/dLLow12.0 - 16.0 g/dLHeartland Behavioral Health Services IMMATURE GRANULOCYTES ABS AUTO0.59HighNONV HealthcareImmature granulocytes/100 WBC (Bld)4.4 %High0.0 - 0.5 %[facility] ServicesInterpretation and review of laboratory resultsAbnormalNONV HealthcareLYMPHOCYTES ABSOLUTE AUTO2.4NONV HealthcareLymphocytes/100 WBC (Bld)17.8 %Low20.5 - 60.0 %[facility]usk Rehabilitation CenterH (RBC) [Entitic mass]29.4 pg26.7 - 34.[address] pgNOMercy Hospital South, formerly [address] Anthony's Medical CenterHC (RBC) [Mass/Vol] 32.8 g/dL29.9 - 35.2 g/dLHeartland Behavioral Health ServicesMCV (RBC) [Entitic vol]89.4 fL81.0 - 99.0 fLHeartland Behavioral Health ServicesMONOCYTES ABSOLUTE AUTO1.1HighNONV HealthcareMonocytes/100 WBC (Bld)8.1 %1.7 - 12.0 %[facility] ServicesNEUTROPHILS ABSOLUTE ZIED2IjfdHRPC HealthcareNeutrophils/100 WBC (Bld)67.8 %43.0 - 75.0 %[facility] Health ServicesPlatelet mean volume (Bld) [Entitic vol]9.6 fL9.5 - 13.5 fLHeartland Behavioral Health ServicesTBH EO #0.2NOMS [facility] HospitalTB QDB932OKQM [facility] RBC3.85LowNOMS [facility] WBC13.3High [facility] Health ServicesCLINISYNFormerly [facility] - SeacoastTB URINE T PROTEIN CREAT RATIOon 24-79-6914PTXOXMYAKU URINE RANDOM<13.76Zbz98.00 - 300.00 mg/dLHeartland Behavioral Health Services Interpretation and review of laboratory resultsAbnormalHeartland Behavioral Health ServicesTOTAL PROTEIN URINE RANDOM<6.0NINF - 11.9 mg/dLHeartland Behavioral Health ServicesCLINISYNFormerly [facility] US OB BPP W NON-STRESSon 68-64-1456[address] [address] Ultrasound Report Signed Patient: JUHI GAMA MR#: [id number] : 1995 Acct:[id number] Age/Sex: 30 / F ADM Date: Loc: [facility] 250-[address]: KUNAL HYATT M.D. Ordering Physician: Steph Keane Date of Service: 08/27/25 Procedure(s): US OB BPP w non-stress Accession Number(s): [id number] cc: Steph Keane; Yomaira BELTRAN [place] [address] Patient Name: JUHI GAMA MRN: [facility]:[id number] date: 1995 Sex: F Assigned Patient Location: LAB Current Patient Location: LAB Accession/Order Number: [id number] Exam Date: 08/27/2025 17:37 Report Date: 08/27/2025 [...] Morillo M.D. 08/27/2025 6:02 PM Dictation Location: [place] [address] Electronically authenticated by: [id number] Y Date: 08/27/2025 18:02 Dictated By: Jp Morillo D.O. Signed By: 08/27/251804 DD/ 01 TD/TT: Parts Salesperson:SATNAMadiology, Radiologist, MD - 08/27/2025 [place] [address] Ultrasound Report Signed Patient: JUHI GAMA MR#: [id number] : 1995 Acct:[id number] Age/Sex: 30 / F ADM Date: Loc: [facility] 250-[address]: KUNAL HYATT M.D. Ordering Physician: Steph Keane Date of Service: 08/27/25 Procedure(s): US OB BPP w non-stress Accession Number(s): [id number] cc: Steph Keane; Yomaira BELTRAN [place] [id number] Patient Name: JUHI GAMA MRN: [facility]:[id number] date: 1995 Sex: F Assigned Patient Location: LAB Current Patient Location: LAB Accession/Order Number: [id number] Exam Date: 08/27/2025 17:37 Report Date: 08/27/2025 [...] Morillo M.D. 08/27/2025 6:02 PM Dictation Location: [place] [address] Electronically authenticated by: [id number] Y Date: 08/27/2025 18:02 Dictated By: Jp Morillo D.O. Signed By: 08/27/251804 DD/ 01 TD/TT: Parts Salesperson: LANETTE HealthcareRadiology Study observation (narrative)NOMShalonda SmallUS OB BPP W NON-STRESSOrdered By: Radiologist Radiology on 79-16-7101[facility] Work Phone: Urinalysis macro (dipstick) panel (U)on 08-27-2025 Bilirubin, UANegativeNegative - 4(70) +++ mg/dLNOMS HealthcareBlood, UANegative Negative - 50 Teodoro/mcLNOMS HealthcareClarity, UAClearNOMS HealthcareColor, UA YellowNOMS HealthcareGlucose, UANegativeNegative - 2000(110) ++++ mg/dLNOMS HealthcareInterpretation and review of laboratory resultsNormalHeartland Behavioral Health Services Ketones, UANegativeNegative - 160(16) ++++ mg/dLFILLMORE COMMUNITY MEDICAL CENTER HealthcareLeukocytes, UA NegativeNegative - 500+++ Robinson/mcLNONV HealthcareNitrite, UANegativeNegative - PositiveNONV HealthcarepH, UA65 - 9NONV HealthcareProtein, UANegativeNegative - 2000(20) ++++ mg/dLFILLMORE COMMUNITY MEDICAL CENTER HealthcareSpec Grav, UA1.0151 - 1.03NONV Healthcare Urobilinogen, UA2.00.2 - 12 mg/dLNONV HealthcareNONV HealthcareURINE CULTURE, ROUTINEon 33-73-9569Xqfgjfxe identified Cx Nom (U) Urine Culture, Routine NOMS HealthcareBacteria identified Cx Nom (U)Mixed urogenital floraNONV HealthcareBacteria identified Cx Nom (U)25,000-50,000 colony forming units per mLNOMS HealthcareBacteria identified Cx Nom (U)Performed at: - [facility] NOMS HealthcareBacteria identified Cx Nom (U)[address] [place] [address] [id number] HealthcareBacteria identified Cx Nom (U)Insurance Sales Agent: Cm Sandoval PhD, Phone: [phone] HealthcareCLINISYNBOSTON CITY HOSPITAL Oymgertvhc1tr hr Glucose Tolerance 100 gm loadon 40-75-3823Ysshknv Tolerance Test 2 Hjeo971 [facility] City HospitalCapillary Glucose POCon 16-30-3150Jzfsyyn [Mass/Vol]88 mg/aFJfyfdf68-36YfgjeuTwin City HospitalComment on above:Performed By: #### [id number] #### [facility] [address], [place] [address]Slz 1 Hron 10-57-7570Evdethm [Mass/Vol]152 mg/tCYxvhhd66-006 [facility] HospitalComment on above:Performed By: #### [id number] #### [facility] [address], [place] [address]Www 2 Hron 80-38-9189Xjcfhzf [Mass/Vol]169 mg/mDTtlx30-665 [facility] HospitalComment on above:Performed By: #### [id number] #### [facility] [address], [place] [address]Bys 3 Hron 42-64-4186Kycvvze [Mass/Vol]141 mg/dTLchp30-371 [facility] HospitalComment on above:Performed By: #### [id number] #### [facility] [address], [place] [address]Umm Fastingon 30-54-2484Hrlersu [Mass/Vol]82 mg/oUMramyo30-24 [facility] HospitalComment on above:Performed By: #### [id number] #### [facility] [address], [place] [address]Racizud tolerance, 1 houron 76-37-3402Adoaesa Tolerance Test 1 Kepv452LndCtdkyz Health SystemGlucose tolerance, 3 hourson 69-67-5402Yapgeel Tolerance Test 3 Jjol141LukFsaped Health SystemGlucose, tolerance fastingon 93-27-9635Cfaozji Tolerance Test Pocftek17MmfXkmqem Health SystemNo Panel Informationon 13-16-5744ZqdUiceinEast Liverpool City HospitalCBC w/ Auto Diffon 08-12-2025 Basophil Absolute0.1 E9/LNormal0.0-0.2[facility] CenterComment on above:Performed By: #### [id number] #### [facility] [address] [place] [address]Akybnnrzy/100 WBC (Bld)0.6 %Normal0.0-2.0[facility] City HospitalComment on above:Performed By: #### [id number] #### [facility] [address], [place] [address]Lsf Absolute0.1 E9/LNormal0.0-0.5[facility] Comment on above:Performed By: #### [id number] #### [facility] [address] [place] [address]Jsjcvsfsghh/100 WBC (Bld)1.0 %Normal0.0-8.0[facility] HospitalComment on above:Performed By: #### [id number] #### [facility] [address], [place] [address]Gahrtjcehjv distribution width (RBC) [Ratio]12.9 %Normal 10.9-14.2FSelect Medical OhioHealth Rehabilitation HospitalComment on above:Performed By: #### [id number] #### [facility] [address], [place] [address]Zmrdbklkqz (Bld) [Volume fraction]33.1 %Low34.0-46.0[facility] City HospitalComment on above:Performed By: #### [id number] #### [facility] [address], [place] [address]Rfokhwprky (Bld) [Mass/Vol]11.4 g/dLLow12.0-16.0[facility] HospitalComment on above:Performed By: #### [id number] #### [facility] [address] [place] [address]Unved Absolute2.0 E9/LNormal1.0-4.0[facility] Comment on above:Performed By: #### [id number] #### [facility] [address], [place] [address]Etxlcdsffkn/100 WBC (Bld)19.6 %Vjjdug20.0-50.0[facility] HospitalComment on above:Performed By: #### [id number] #### [facility] [address], [place] [address]PAC (RBC) [Entitic mass]29.9 adAxcywq71.0-34.0[facility] HospitalComment on above:Performed By: #### [id number] #### [facility] [address], [place] [address]LMVO (RBC) [Mass/Vol]34.4 g/gQPdougq85.4-36.0[facility] HospitalComment on above:Performed By: #### [id number] #### [facility] [address], [place] [address]BQR (RBC) [Entitic vol]86.7 nHUdzloz28.0-100.0[facility] HospitalComment on above:Performed By: #### [id number] #### [facility] [address], [place] [address]Xnlh Absolute0.5 E9/LNormal0.2-1.0[facility] Comment on above:Performed By: #### [id number] #### [facility] [address], [place] [address]Nvzvqpves/100 WBC (Bld)4.6 %Normal4.0-14.0[facility] HospitalComment on above:Performed By: #### [id number] #### [facility] [address], [place] [address]Zbxezc Absolute7.5 E9/LNormal2.0-7.5FSelect Medical OhioHealth Rehabilitation Hospital Comment on above:Performed By: #### [id number] #### [facility] [address] [place] [address]Pejprv Auto74.2 %Ypxxym72.0-75.0[facility] Comment on above:Performed By: #### [id number] #### [facility] [address] [place] [address]Blfpajdm378.0 E9/ZEhvina486.0-500.0[facility] Comment on above:Performed By: #### [id number] #### [facility] [address] [place] [address]Kfhjgjwt mean volume (Bld) [Entitic vol]8.1 fLNormal6.4-10.8 [facility] HospitalComment on above:Performed By: #### [id number] #### [facility] [address], [place] [address]TTZ7.8 E12/LLow4.3-5.9[facility] HospitalComment on above:Performed By: #### [id number] #### [facility] [address] [place] [address]QGE21.1 E9/LNormal4.0-11.0[facility] HospitalComment on above:Performed By: #### [id number] #### [facility] [address], [place] [address]Treenrdnxw 45-76-7373Edqwjauw Lvl7 ng/xAMum83-039PoyaorTwin City HospitalComment on above:Performed By: #### [id number] #### [facility] [address], [place] [address]Dvjyllvx 42-28-6419Vaihtk Lvl>22.3Normal>=6.7FSelect Medical OhioHealth Rehabilitation HospitalComment on above:Performed By: #### [id number] #### [facility] [address], [place] [address]Lhku Scr Glu 1 Hron 64-60-8700Xormyvh [Mass/Vol]155 mg/dLHigh 55-140T[facility] City HospitalComment on above:Performed By: #### [id number] #### [facility] [address] [place] [address]Uzesmwd 1h post 50g loadon 25-95-4694Ufysquq, 1 hr PP 50GM dose 155ProMedica Health SystemIronon 95-41-5829Fmjl06 microgram/cOJizool32-920MkqszeTwin City HospitalComment on above:Performed By: #### [id number] #### [facility] [address], [place] [address]Jc Panel Informationon 78-73-9863OOQH HealthcareTIBC Calculated on 87-69-9422WDYG230 microgram/iBTcmw063-743HwapcuTwin City HospitalComment on above:Performed By: #### [id number] #### [facility] [address], [place] [address]Zuziytrhgpc [Mass/Vol]455 mg/ePHoyh328-330XyclqhTwin City HospitalComment on above:Performed By: #### [id number] #### [facility] [address], [place] [address]JR OB LIMITED 1+ FETUSESon 70-51-9299HO OB LIMITED 1+ FETUSES FINDINGS: Single viable [...] Delivery: 11/28/25 Gestational Age as of 07/21/2025: 30q2gRxcodkcezb macro (dipstick) panel (U)on 33-59-6418Yuynsfjbt, UANegativeNegative - 4(70) +++ mg/dLNOMS HealthcareBlood, UANegativeNegative [...] HealthcareUrobilinogen, UA1.00.2 - 12 mg/dLNOMS HealthcareVit B12on 25-42-2721Zxsgdjybj (Vitamin B12) [Mass/Vol]205 pg/eOMszrwn20-0674Ksooxg [facility] CenterComment on above:Performed By: #### [id number] #### [facility] [address], [place] [address]RQN w/ Auto Diffon 27-51-5097Lxqnltzy Absolute0.0 E9/LNormal 0.0-0.2[facility] CenterComment on above:Performed By: #### [id number] #### [facility] [address], [place] [address]Mfnsngboc/100 WBC (Bld)0.2 %Normal0.0-2.0[facility] HospitalComment on above:Performed By: #### [id number] #### [facility] [address] [place] [address]Ili Absolute0.1 E9/LNormal0.0-0.5FSelect Medical OhioHealth Rehabilitation Hospital Comment on above:Performed By: #### [id number] #### [facility] [address], [place] [address]Vnqwikuucae/100 WBC (Bld)0.5 %Normal0.0-8.0[facility] HospitalComment on above:Performed By: #### [id number] #### [facility] [address] [place] [address]Ttgdshjhsux distribution width (RBC) [Ratio]13.0 %Normal 10.9-14.2FSelect Medical OhioHealth Rehabilitation HospitalComment on above:Performed By: #### [id number] #### [facility] [address] [place] [address]Jtvzvilfnk (Bld) [Volume fraction]31.9 %Low34.0-46.0[facility] HospitalComment on above:Performed By: #### [id number] #### [facility] [address] [place] [address]Okaehpajkz (Bld) [Mass/Vol]11.1 g/dLLow12.0-16.0[facility] HospitalComment on above:Performed By: #### [id number] #### [facility] [address] [place] [address]Edfyv Absolute2.1 E9/LNormal1.0-4.0[facility] Comment on above:Performed By: #### [id number] #### [facility] [address], [place] [address]Xbvgdnsoaiw/100 WBC (Bld)16.2 %Dqdjgr79.0-50.0[facility] HospitalComment on above:Performed By: #### [id number] #### [facility] [address], [place] [address]FXF (RBC) [Entitic mass]29.9 jeZhynxp53.0-34.0[facility] HospitalComment on above:Performed By: #### [id number] #### [facility] [address] [place] [address]YAOM (RBC) [Mass/Vol]34.8 g/yMCposug49.4-36.0[facility] HospitalComment on above:Performed By: #### [id number] #### [facility] [address] [place] [address]LAQ (RBC) [Entitic vol]85.7 eAQclxsd47.0-100.0[facility] HospitalComment on above:Performed By: #### [id number] #### [facility] [address] [place] [address]Wtby Absolute0.9 E9/LNormal0.2-1.0[facility] Comment on above:Performed By: #### [id number] #### [facility] [address] [place] [address]Iolckhjfn/100 WBC (Bld)7.0 %Normal4.0-14.0[facility] HospitalComment on above:Performed By: #### [id number] #### [facility] [address] [place] [address]Xlsbou Absolute9.7 E9/LHigh2.0-7.5[facility] Comment on above:Performed By: #### [id number] #### [facility] [address] [place] [address]Jtnmtw Auto76.1 %High36.0-75.0[facility] Comment on above:Performed By: #### [id number] #### [facility] [address] [place] [address]Jnndgovb125.0 E9/TPyrzxs269.0-500.0[facility] Comment on above:Performed By: #### [id number] #### [facility] [address], [place] [address]Osbwifsa mean volume (Bld) [Entitic vol]8.0 fLNormal6.4-10.8 [facility] HospitalComment on above:Performed By: #### [id number] #### [facility] [address], [place] [address]FPQ5.7 E12/LLow4.3-5.9[facility] HospitalComment on above:Performed By: #### [id number] #### [facility] [address], [place] [address]ISM83.8 E9/LHigh4.0-11.0[facility] HospitalComment on above:Performed By: #### [id number] #### [facility] [address], [place] [address]EESll 79-15-7618JU3 [Moles/Vol]20 mmol/ADwg20-82NrksntTwin City HospitalComment on above:Performed By: #### [id number] #### [facility] [address], [place] [address]Wnnln gap [Moles/Vol]16 mmol/LNormal6-16[facility] HospitalComment on above:Performed By: #### [id number] #### [facility] [address], [place] [address]Tsjmnno [Mass/Vol]3.8 g/dLNormal3.3-5.0[facility] HospitalComment on above:Performed By: #### [id number] #### [facility] [address], [place] [address]Ctwmgpn/Globulin [Mass ratio]1.3 {ratio}Normal1.1-2.2FSelect Medical OhioHealth Rehabilitation HospitalComment on above:Performed By: #### [id number] #### [facility] [address], [place] [address]Lsr Phos78 Int._Unit/KTqxoex29-86KrtkfoTwin City Hospital Comment on above:Performed By: #### [id number] #### [facility] [address], [place] [address]TZZ05 Int._Unit/LNormal6-46[facility] HospitalComment on above:Performed By: #### [id number] #### [facility] [address], [place] [address]LAT97 Int._Unit/LNormal5-43[facility] HospitalComment on above:Performed By: #### [id number] #### [facility] [address], [place] [address]Qrsf Total0.8 mg/dLNormal0.0-1.1FSelect Medical OhioHealth Rehabilitation Hospital Comment on above:Performed By: #### [id number] #### [facility] [address], [place] [address]QPL/Creat Ratio18 No RbzvyTgrizz79-46LwcfkaTwin City HospitalComment on above:Performed By: #### [id number] #### [facility] [address], [place] [address]Dhioapg [Mass/Vol]8.9 mg/dLNormal8.9-11.1FSelect Medical OhioHealth Rehabilitation HospitalComment on above:Performed By: #### [id number] #### [facility] [address], [place] [address]Whjjhzff [Moles/Vol]104 mmol/UOgaxdn806-354JnawyrTwin City HospitalComment on above:Performed By: #### [id number] #### [facility] [address], [place] [address]Rogviiqulr [Mass/Vol]0.6 mg/dLNormal0.5-1.3FSelect Medical OhioHealth Rehabilitation HospitalComment on above:Performed By: #### [id number] #### [facility] [address], [place] [address]Vualfbxa (S) [Mass/Vol]3.0 g/dLNormal1.4-4.0T[facility] City HospitalComment on above:Performed By: #### [id number] #### [facility] [address], [place] [address]Xccnptw [Mass/Vol]92 mg/lACfonpg56-814UdjkkeTwin City HospitalComment on above:Performed By: #### [id number] #### [facility] [address], [place] [address]Xskeazhkc [Moles/Vol]3.7 mmol/LNormal3.5-5.3FSelect Medical OhioHealth Rehabilitation HospitalComment on above:Performed By: #### [id number] #### [facility] [address], [place] [address]Vwlzyqh [Mass/Vol]6.8 g/dLNormal6.0-7.8T[facility] City HospitalComment on above:Performed By: #### [id number] #### [facility] [address], [place] [address]Hogprr [Moles/Vol]136 mmol/VJbdgoq827-886JojnuvTwin City HospitalComment on above:Performed By: #### [id number] #### [facility] [address], [place] [address]Xjil nitrogen [Mass/Vol]11 mg/dLNormal5-21T[facility] City HospitalComment on above:Performed By: #### [id number] #### [facility] [address], [place] [address]Rseai Panelon 89-42-7596Qmhrsugjsui [Mass/Vol]239 mg/dLHigh 120-200Twin City HospitalComment on above:Performed By: #### [id number] #### [facility] [address], [place] [address]Tqlcqwdoksp in HDL [Mass/Vol]88 mg/dLInvalid Interpretation CodeTwin City HospitalComment on above:Result Comment: '>= 60 LOW RISK' '<= 40 HIGH RISK'Performed By: #### [id number] #### [facility] [address], [place] [address]Nopeqzvgckz in LDL [Mass/Vol]144 mg/dLHigh<=129T[facility] City HospitalComment on above:Performed By: #### [id number] #### [facility] [address] [place], [place] [address]Xpvdyswdiwt in VLDL [Mass/Vol]40 mg/dLNormal7-40T[facility] City HospitalComment on above:Performed By: #### [id number] #### [facility] [address], [place] [address]Grltexmrspue [Mass/Vol]202 mg/dLHigh<=149T[facility] City HospitalComment on above:Performed By: #### [id number] #### [facility] [address] [facility] [place], [place] [address]oIDVto 83-60-7201zOQX848 mL/min/1.73 n0Uzpvfv>=59Twin City HospitalComment on above:Performed By: #### [id number] #### [facility] [address], [place] [address]DCN, SERUM, OPEN SPINA BIFIDAon 93-84-2589HEI MOM0.95.[facility] HealthcareAFP VALUE59.2 ng/mL.[facility] HealthcareCOMMENT:Comment.[facility] Healthcare Comment on above:Amy Ramos, Ph.D., [facility] Director References: Available Upon Request. Multiples Of Median Cutoffs For AFP Elevations Hsieh 2.5 Black 2.8 IDD 2.0 Twins 4.5 Abbreviation Definitions IDD - Insulin Dep Diabetes OSBR - Open Spina Bifida Risk For further inquiries contact [employer] [facility] at [phone]. This test was developed and its performance characteristics determined by [employer]. It has not been cleared or approved by the Food and Drug Administration. Performed at: [facility] [address] [place] [address], [place] [id number] Insurance Sales Agent: Dona Justin [facility], Phone: [phone] GEST. AGE ON COLLECTION DATE20.6. weeksNOMS HealthcareGESTAT. AGE BASED ONLMP. NOMS HealthcareComment on above:Recalculations are not recommended when gestational dating by LMP and ultrasound are within 10 days. INSULIN DEP DIABETESNo.[facility] ServicesINTERPRETATIONComment.[facility] Comment on above:Interpretation: Screen Negative This result [...] Customer Services to discuss available options. The [employer] recommends amniocentesis be offered to women age 35 and older. MATERNAL AGE AT EDD30.7. yrNONV HealthcareMULTIPLE GESTATIONNo.[facility] OSBR RISK 1 [id number].[facility] Health ServicesRACECaucasian.[facility] ServicesRESULTSReport. [facility] ServicesTEST RESULTS:Negative.[facility] ServicesNbmcylnqnjEEEHCO567. lbCoulee Medical Center HealthcarePREGNANCY N N LMP [id number] 2 17 N 1 Y 146 N N N N N White/ CLINISYNCNONV HealthcareUS OB 14+ WEEKS ANATOMY SCANon 45-82-9094DM OB 14+ WEEKS ANATOMY SCANEXAM: US OB [...] II, MD, PHD at 16-Jul-2025 08:07:07 AM [facility] TeleradiologyNormalNot AvailableComment on above:Order Comment: US OB ANATOMY SINGLE W US OB CERVICAL LENGTH Estimated Date of Delivery: 11/28/25 Gestational Age as of 06/22/2025: 18i2nQshdivuvij macro (dipstick) panel (U)on 07-01-2037Sfeeslfye, UANegativeNegative - 4(70) +++ mg/dLNOMS HealthcareBlood, UANegativeNegative [...] 12 mg/dLNOMS HealthcareNOMS Healthcare RECURRENT VAGINITIS (HTRX)on 90-58-2340EKCCVQOEH JCKHDPE0MMRO Healthcare ATOPOBIUM VAGINAENot detectedNOMS HealthcareBVAB 2,3 (BACTERIAL VAGINOSIS ASSOCIATED BACTERIA 2, 3); MOBILUNCUS TBZ7HCTL HealthcareBVAB 2,3 (BACTERIAL VAGINOSIS ASSOCIATED BACTERIA 2, 3); MOBILUNCUS SPPNot detectedNOMS Healthcare RADHA ALBICANS, PARAPSILOSIS, CXAKPEXKGJ5MXGY HealthcareCANDIDA ALBICANS, PARAPSILOSIS, TROPICALISNot detectedNOMS HealthcareCANDIDA LKYBSIGC4GFSK HealthcareCANDIDA GLABRATANot detectedNOMS HealthcareCANDIDA TXHIXA3WQBL HealthcareCANDIDA KRUSEINot detectedNOMS HealthcareCHLAMYDIA EIRPECOJUXJ3OYRJ HealthcareCHLAMYDIA TRACHOMATISNot detectedNOMS HealthcareGARDNERELLA VAGINALIS 17.967AbnormalNOMS HealthcareGARDNERELLA VAGINALISDetectedAbnormalNONV HealthcareInterpretation and review of laboratory resultsAbnormalNONV Healthcare MEGASPHAERA (TYPES 1, 2)0NOMS HealthcareMEGASPHAERA (TYPES 1, 2)Not detectedNOMS HealthcareMYCOPLASMA MINEVXWFKB8OKZZ HealthcareMYCOPLASMA GENITALIUMNot detectedNOMS HealthcareNEISSERIA NHNTJCTDJQW5GPEL HealthcareNEISSERIA GONORRHOEAENot detectedNOMS HealthcareTRICHOMONAS KUILPVNFT7IIFD Healthcare TRICHOMONAS VAGINALISNot detectedNOMS HealthcareNOMS HealthcareUrinalysis macro (dipstick) panel (U)on 63-88-5422Gxaxabvxt, UANegativeNegative - 4(70) +++ mg/dL NOMS HealthcareBlood, UANegativeNegative - 50 Teodoro/mcLNOMS HealthcareClarity, UA ClearNOMS HealthcareColor, UAYellowNOMS HealthcareGlucose, UANegativeNegative - 2000(110) ++++ mg/dLNOMS HealthcareInterpretation and review of laboratory resultsNormalNONV HealthcareKetones, UANegativeNegative - 160(16) ++++ mg/dLNOMS HealthcareLeukocytes, UANegativeNegative - 500+++ Robinson/mcLNOMS Healthcare Nitrite, UANegativeNegative - PositiveNOMS HealthcarepH, UA65 - 9NOMS Healthcare Protein, UANegativeNegative - 1999(20) ++++ mg/dLNOMS HealthcareSpec Grav, UA 1.0051 - 1.03NOMS HealthcareUrobilinogen, UA1.00.2 - 12 mg/dLNONV HealthcareNONV HealthcareUrinalysis macro (dipstick) panel (U)on 08-12-3251Ayglyxtqp, UA NegativeNegative - 4(70) +++ mg/dLNONV HealthcareBlood, UANegativeNegative - 50 Teodoro/mcLNONV HealthcareClarity, UAClearNOMS HealthcareColor, UAYellowNONV HealthcareGlucose, UANegativeNegative - 2000(110) ++++ mg/dLFILLMORE [facility] Healthcare Interpretation and review of laboratory resultsNormalFILLMORE COMMUNITY MEDICAL [facility]ENTER HealthcareKetones, UA NegativeNegative - 160(16) ++++ mg/dLFILLMORE COMMUNITY MEDICAL CENTER HealthcareLeukocytes, UAPositive Negative - 500+++ Robinson/mcLFILLMORE COMMUNITY MEDICAL CENTER HealthcareComment on above:smallNitrite, UA NegativeNegative - PositiveNONV HealthcarepH, UA6.55 - 9NOMS HealthcareProtein, UANegativeNegative - 1999(20) ++++ mg/dLNONV HealthcareSpec Grav, UA1.011 - 1.03 NOMS HealthcareUrobilinogen, UA0.20.2 - 12 mg/dLBarnes-Jewish Saint [facility] Healthcare BOX TESTon 87-71-8018VJA TEST SENT OUTunTrousdale Medical CenterGvmxzfcwnwDED4nkxbeHABO SqveauqvwkCJD02/08/20NOSt. Luke's HospitalUNITY BOX CLINISYNCCBC without diffon 58-31-7547Jiybcczqvx (Bld) [Volume fraction]39.8 % [facility] SystemHemoglobin (Bld) [Mass/Vol]13.2 g/dLEast Liverpool City HospitalPlatelets (Bld) [#/Vol]390 10*3/uLEast Liverpool City HospitalRbc Mcv (Fl) By Automated Count84.7East [place] City HospitalDrug Screen, Urineon 05-04-2025 Amphetamine/MethamphetamineNegativeOhio State Health System SystemBarbituratesNegative [facility] SystemBenzodiazepinesNegativeOhio State Health System SystemCocaine MetaboliteNegativeOhio State Health System SystemMethadoneNegativeOhio State Health System SystemOpiatesNegativeProMedica Health SystemOxycodoneNegativeProMedica Health SystemPhencyclidineNegativeProMedica Health SystemThc Marijuana, UrineNegative [facility] SystemHBV surface Ag IA Qlon 79-36-3603Reloarfjk B Surface AntigenNegativeProMedica Health SystemHCV Ab IA Qlon 06-50-1413LFG Ab Ql (S) Non-ReactiveProMedinv Health SystemHIV 1+2 Ab+HIV1 p24 Ag IA Qlon 18-94-7425EBY 1&2 AB/AGNon-ReactiveOhio State Health System SystemHemoglobin A1con 53-07-5373ArI1v (Bld) [Mass fraction]5.3 %4.0 - 6.0 %[facility] SystemNo Panel Information on 24-76-1280FPSI HealthcareRubella IGG immune statusOrdered By: Angeline Velasquez on 06-95-3689Bdranrw immune IgGProCrestwood Medical Center Health SystemType and screenon 21-15-1297Ugt/Rh(D)PositiveProMemorial Health System Marietta Memorial HospitalHCG ( test) Ql (U)on 86-45-8203Bxpmeyvuboicww and review of laboratory resultsAbnormalNONV Healthcare Preg Test, UrPositiveNegativeNOSt. Luke's HospitalNONV HealthcareUS OB TRANSVAGINALon 57-11-9279[place] [address] Ultrasound Report Signed Patient: JUHI COPE MR#: [id number] : 1995 Acct:[id number] Age/Sex: 30 / F ADM Date: 05/01/25 Loc: US Attending Dr: Nathan Pop D.O. Ordering Physician: Nathan Pop D.O. Date of Service: 05/01/25 Procedure(s): US OB transvaginal Accession Number(s): [id number] cc: Nathan Pop D.O.; Physician,Non-Staff Katherine The [address] [address] Patient Name: JUHI COPE MRN: [id number] date: 1995 Sex: F Assigned Patient Location: US Current Patient Location: US Accession/Order Number: [id number] Exam Date: 05/01/2025 08:57 Report Date: 05/01/2025 [...] Faria M.D. 05/01/2025 9:01 AM Dictation Location: [place] [address] Electronically authenticated by: [id number] Y Date: 05/01/2025 09:01 Dictated By: Will Faria M.D. Signed By: 05/01/2504 DD/ 0 TD/TT: Parts Salesperson:TBHRadiology, Radiologist, MD - 05/01/2025 [place] [address] Ultrasound Report Signed Patient: JUHI COPE MR#: [id number] : 1995 Acct:[id number] Age/Sex: 30 / F ADM Date: 05/01/25 Loc: US Attending Dr: Nathan Pop D.O. Ordering Physician: Nathan Pop D.O. Date of Service: 05/01/25 Procedure(s): US OB transvaginal Accession Number(s): [id number] cc: Nathan Pop D.O.; Physician,Non-Staff Katherine [address] [address] Patient Name: JUHI COPE MRN: [id number] date: 1995 Sex: F Assigned Patient Location: US Current Patient Location: US Accession/Order Number: [id number] Exam Date: 05/01/2025 08:57 Report Date: 05/01/2025 [...] Faria M.D. 05/01/2025 9:01 AM Dictation Location: [place] [address] Electronically authenticated by: [id number] Y Date: 05/01/2025 09:01 Dictated By: Will Faria M.D. Signed By: 05/01/25903 DD/ 0 TD/TT: Parts Salesperson: LANETTE HealthcareRadiology Study observation (narrative)LANETTE SmallUS OB TRANSVAGINALOrdered By: Radiologist Radiology on 46-37-6721YSXT Healthcare Work Phone: Urinalysis macro (dipstick) panel (U)on 05-01-2025 Bilirubin, UANegativeNegative - 4(70) +++ mg/dLNOMS HealthcareBlood, UANegative Negative - 50 Teodoro/mcLNOMS HealthcareClarity, UAClearNOMS HealthcareColor, UA YellowNOMS HealthcareGlucose, UANegativeNegative - 2000(110) ++++ mg/dLNOMS HealthcareInterpretation and review of laboratory resultsNormalNONV Healthcare Ketones, UANegativeNegative - 160(16) ++++ mg/dLNOMS HealthcareLeukocytes, UA NegativeNegative - 500+++ Robinson/mcLNOMS HealthcareNitrite, UANegativeNegative - PositiveNOMS HealthcarepH, UA5.55 - 9NOMS HealthcareProtein, UANegativeNegative - 2000(20) ++++ mg/dLNOMS HealthcareSpec Grav, UA1.021 - 1.03NOMS Healthcare Urobilinogen, UA1.00.2 - 12 mg/dLNOMS HealthcareNOMS HealthcareCHEMISTRYOrdered By: SYSTEM SYSTEM on 32-48-3042Dhffvwqppegu Lvl31.35 ng/mLInvalid Interpretation CodeRemisol ChemComment on above:Result Comment: 'F NON FOLLICULAR = 0.10 - 0.60' 'LUTEAL = 3.00 - 17.5' 'MIDLUTEAL = 3.30 - 18.6' 'POST-MENOPAUSE = 0.10 - 0.40' '-FIRST TRIMESTER = 8.30 - 66.5' 'SECOND TRIMESTER = 18.9 - 66.1' 'THIRD TRIMESTER = 35.8 - 312.4' 'MALES = 0.14 - 2.06'Progesteroneon 37-72-1670Ctacxarxifme Lvl31.35 ng/mLInvalid Interpretation CodeTwin City HospitalComment on above:Result Comment: 'F NON FOLLICULAR = 0.10 - 0.60' 'LUTEAL = 3.00 - 17.5' 'MIDLUTEAL = 3.30 - 18.6' 'POST-MENOPAUSE = 0.10 - 0.40' '-FIRST TRIMESTER = 8.30 - 66.5' 'SECOND TRIMESTER = 18.9 - 66.1' 'THIRD TRIMESTER = 35.8 - 312.4' 'MALES = 0.14 - 2.06'Performed By: #### [id number] #### [facility] [address] [place], [place] [address]Ztzleptauchbmf 30-91-5294Xmvnljmdxiel7.2 ng/mLNormal.The Pending Sale To [facility] Physician GroupComment on above:Result Comment: Follicular phase 0.1 - 0.9 Luteal phase 1.8 - 23.9 Ovulation phase 0.1 - 12.0 First trimester 11.0 - 44.3 Second trimester 25.4 - 83.3 Third trimester 58.7 - 214.0 Postmenopausal 0.0 - 0.1 Performed at: - [facility] [id number] Insurance Sales Agent: Cm Sandoval PhD, Phone: [phone] PERFORMED BY: [address] [place] [address] PATHOLOGIST ENTREPRENEURIAL FINANCE PROFESSOR ARNULFO THOMAS M.D.Performed By: #### PROG #### [facility] , Transvaginal Non-OBon 06-73-1397JD Transvaginal Non-OBExam Date/Time: 01/22/2025 16:22 EST Reason for Exam: N94.6 Report PLEASE SEE US Pelvis Non-OB Complete REPORT DATED: 01/22/2025. Ordering Provider: Nathan POP FINAL REPORT Dictated: 01/27/2025 10:11 am Siddharth Foy MD Signed (Electronic Signature): 01/27/2025 10:11 am Signed by: Siddharth Foy MD Transcribed by: ELOISA Technologist: Filiberto [facility] CenterUS Pelvis Non-OB Completeon 48-14-1538CP Pelvis Non-OB CompleteExam Date/Time: 01/22/2025 16:24 EST [...] Kate Gonzalez MD Transcribed by: ELOISA Technologist: TalyaTwin City HospitalMILADY,APTIMA HPV,AGE GDLNon 67-46-7696ZJJ GDLN ACOG TESTINGNote.NOMS HealthcareComment on above:TESTS RESULT FLAG UNITS REF RANGE LAB Clinician Provided Cytology Information Source.............Cervix;Endocervix No. of containers..01 ThinPrep Vial Age Algo ACOG Sarah... -24 12 FLAG LEGEND: L-Low Normal,H-High Normal,LL-Alert Low,HH-Alert High <-Panic Low,>-Panic High,A-Abnormal,AA-Critical Abnormal Performed at: 01 =G [facility] [place] [address] Loren Oneal MD, IGP, RFX APTIMA HPV ASCUNote.[facility] HealthcareComment on above:TESTS RESULT FLAG UNITS REF RANGE LAB DIAGNOSIS: 02 NEGATIVE FOR INTRAEPITHELIAL LESION OR MALIGNANCY. Specimen adequacy: 02 Satisfactory for evaluation. Endocervical and/or squamous metaplastic cells (endocervical component) are present. Performed by: Sophia Calzada, Director Asset ([facility]) . 02 Note: Note 02 The Pap [...] <-Panic Low,>-Panic High,A-Abnormal,AA-Critical Abnormal Performed at: [address] [address] Loren Oneal MD, Performed at: =G - [facility] [id number] Insurance Sales Agent: Loren Oneal MD, Phone: [phone] Performed at: [facility] [id number] Insurance Sales Agent: Loren Oneal MD, Phone: [phone] BRUSH-SPATULA CERVIX ENDOCERVIX [facility] 37-67-2671SNUZDtwjriczs (WHQ) JUHI COPE ([id number]) 1995 F Date Time Provider Department 04/29/24 [...] [I10] Encounter Status:Closed by CANDIS GARCES on 04/29/24[facility] 87-79-7845QEYUFwmehabjx (WHQ) JUHI COPE ([id number]) 1995 F Date Time Provider Department 04/25/24 CHARLENE RODRIGUEZ During your visit today, we recorded the following information about you: Anna De Leon 04/25/2024 1:10 PM Signed Pt got in sooner for surgery with her local senior web engineer. Please cancel surgery and all pre and [...] Encounter Status:Closed by SUSI DE LEONLEY on 04/25/24[facility] 12-LEADon 69-97-7764[address] [address] Electrocardiograph Report Signed Patient: JUHI COPE MR#: [id number] : 1995 Acct:[id number] Age/Sex: 28 / F ADM Date: 02/13/24 Loc: PST Attending Dr: Nathan Pop D.O. Ordering Physician: Nathan Pop D.O. 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 Signed By: 02/14/24 0650 DD/ 1455 TD/TT: Parts Salesperson:TBHRadiology, Radiologist, MD - 02/14/[address] [address] Electrocardiograph Report Signed Patient: JUHI COPE MR#: [id number] : 1995 Acct:[id number] Age/Sex: 28 / F ADM Date: 02/13/24 Loc: PST Attending Dr: Nathan Pop D.O. Ordering Physician: Nathan Pop D.O. Date of Service: 02/13/24 Procedure(s): ECG 12 lead Accession Number(s): [id number] cc: The [facility] Test Date: 2024-02-13 Pat Name: JUHI COPE Department: Room: - Gender: Female Transportation Planning Technician: : 1995 Requested By: NATHAN POP Order Number: [id number] Reading MD: MARY KATE ORDAZ Measurements Intervals [place] Rate: 86 P: 31 MT: 133 QRS: 20 QRSD: 89 T: 47 QT: 374 QTc: 449 Interpretive Statements SINUS RHYTHM No previous ECG available for comparison Electronically Signed On 02-14-2024 6:50:27 EDT by MARY KATE ORDAZ Dictated By: Mary Kate Ordaz D.O. Signed By: 02/14/24 0650 DD/ 1455 TD/TT: Parts Salesperson: LANETTE HealthcareECG 12-LEADOrdered By: Radiologist Radiology on 86-80-4455LYUK Healthcare Work Phone: ECG 12-LEADon 12-00-7973Jebupbomo Study observation (narrative)LANETTE HealthcareUS PELVIS W/ TRANSVAGINALon 72-99-9125[place]qMa[place], [place] [address] Ultrasound Report Signed Patient: JUHI COPE MR#: [id number] : 1995 Acct:[id number] Age/Sex: 28 / F ADM Date: 01/15/24 Loc: [facility] Attending Dr: Nathan Pop D.O. Ordering Physician: Nathan Pop D.O. Date of Service: 01/15/24 Procedure(s): US pelvis w/ transvaginal Accession Number(s): [id number] cc: Nathan Pop D.O.; Physician,Non-Staff Katherine The [address] [address] Patient Name: JUHI COPE MRN: [id number] date: 1995 Sex: F Assigned Patient Location: [facility] Current Patient Location: [facility] Accession/Order Number: [id number] Exam Date: 01/15/2024 07:57 Report Date: 01/15/2024 [...] Signed By: 01/15/24 1144 DD/ 1142 TD/TT: Parts Salesperson:TBHRadiology, Radiologist, - 01/15/2024 [place] [address] Ultrasound Report Signed Patient: JUHI COPE MR#: [id number] : 1995 Acct:[id number] Age/Sex: 28 / F ADM Date: 01/15/24 Loc: [facility] Attending Dr: Nathan Pop D.O. Ordering Physician: Nathan Pop D.O. Date of Service: 01/15/24 Procedure(s): US pelvis w/ transvaginal Accession Number(s): [id number] cc: Nathan Pop D.O.; Physician,Non-Staff M.DKaren The [place] [id number] Patient Name: JUHI COPE MRN: [id number] date: 1995 Sex: F Assigned Patient Location: [facility] Current Patient Location: [facility] Accession/Order Number: [id number] Exam Date: 01/15/2024 07:57 Report Date: 01/15/2024 [...] Signed By: 01/15/24 1144 DD/ 1142 TD/TT: Parts Salesperson: LANETTE HealthcareRadiology Study observation (narrative)[facility] HealthcareUS PELVIS W/ TRANSVAGINALOrdered By: Radiologist Radiology on 60-74-1999LZCP Bancha Work Phone: cNPTanya 15-50-5430VBMHWnfckeglg (Q) JUHI COPE ([id number]) 1995 F Date Time Provider Department 12/12/23 [...] [I10] Encounter Status:Closed by CANDIS GARCES on 12/12/23[facility] 71-74-5780FOCKAvzutv Visit (GYMGME) JUHI COPE ([id number]) 1995 F Date Time Provider Department 12/10/23 10:30 AM CHARLENE RODRIGUEZ During your visit today, we recorded the following information about you: Pulse Blood pressure Weight 98/minute 124/84 68.9 kg Charlene Rodriguez DO 12/10/2023 3:14 PM Signed [facility] [employer] SECTION FOR MINIMALLY INVASIVE GYNECOLOGIC SURGERY OUTPATIENT VISIT DATE 12/10/2023 OUTPATIENT VISIT TYPE Follow-up visit PRIMARY CARE PHYSICIAN: Denny Rodríguez [address] [place] [address] REFERRING PHYSICIAN: Self CHIEF COMPLAINT: No chief [...] MRI: no evidence of 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 Ruby Memorial Hospitalology Cervical or vaginal smear or scraping studyon 24-06-5607QMVW HealthcareCNPNon 45-65-6628YJWEVixwphmee ([facility]) JUHI COPE ([id number]) 1995 F Date Time Provider Department 08/02/23 CHARLENE RODRIGUEZ [facility] During your visit today, we recorded [...] orilissa completed via Cover MyMeds. Juhi Cope (Omrales: BGRBR2BP) - [id number] Orilissa 150MG tablets Status: Sent To Plan [...] [I10] Encounter Status:Closed by JENIFER LYNN on 08/02/23[facility] 17-91-8232KAUYUumtib Visit (GYMGME) JUHI COPE ([id number]) 1995 F Date Time Provider Department 07/16/23 11:30 AM CHARLENE RODRIGUEZ During your visit today, we recorded the following information about you: Blood pressure Last Period 136/90 07/08/23 Charlene Rodriguez DO 07/16/2023 12:41 PM Signed [facility] [employer] SECTION FOR MINIMALLY INVASIVE GYNECOLOGIC SURGERY OUTPATIENT VISIT DATE 07/16/2023 OUTPATIENT VISIT TYPE Follow-up visit PRIMARY CARE PHYSICIAN: Denny Rodríguez [address] [place] [address] REFERRING PHYSICIAN: Denny Rodríguez CHIEF COMPLAINT: No [...] additional bowel lesions identified 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 IMPRESSION: No deep infiltrating endometriosis. Parts Salesperson: DAVID Transcribe Date/Time: Jun 12 2023 2:54P Dictated by : ASHLEY DUKE MD This examination was interpreted and the report reviewed and electronically signed by: SONIDO FLAHERTY MD on Jun 12 2023 4:51PM EST [id number] Health System West CampusCNPNon 31-72-4324OEIDCcsqbxlgb (GYNMN) JUHI COPE ([id number]) 1995 F Date Time Provider Department 05/11/23 CHARLENE RODRIGUEZ GYNMN During your visit today, we recorded the following information about you: Tawana Nair [facility] 05/11/2023 1:21 PM Signed Reason for call: [...] Takes aygestin 5mg daily. 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 Encourage to picking belt operator the flexeril as this will help with the cramping. Reviewed red flag bleeding symptoms that require trip to ER (soaking greater than one overnight pad per hour, chest pain, shortness of breath, fatigue, palpitations).. Advised keep appt. Gives verbal understanding. Appointments for Next 60 Days Date Time Provider Location Dept Phone 05/17/2023 1:00 PM CHARLENE RODRIGUEZ [facility] [phone] Candis Suárez RN Allergies As of Date: 05/11/2023 (No Known Allergies) Date Reviewed: 05/09/2023 Reviewed by: Jihan Downs APRN.PATTERN CARRIER - Fully Assessed Reason for Visit: Vaginal [...] [I10] Encounter Status:Closed by CANDIS WILLINGHAM on 05/11/23[facility] HospitalGracie [id number] Visit ([facility]) NITO COPEIS ([id number]) 1995 F Date Time Provider Department 05/01/23 10:30 AM JIHAN DOWNS [facility] During your visit today, we recorded the following information about you: Blood pressure Weight Height Last Period 148/64 64.9 kg 1.575 m 04/22/23 Jihan Downs APRN.PATTERN CARRIER 05/09/2023 11:46 AM Signed Juhi Cope is a 28 year old female who presents for problem visit for pain HPI: Pain is week before period and week of period. Worse on her period for every day she's bleeding Urinary - No symptoms GI - Always constipated. No meds Export - painful always Pain is on left [...] L0 SAB0 IAB0 Ectopic0 Multiple0 Live Births0 Commodities Trader History LMP: 03/26/2023 (Approximate), Having periods Age at Menarche: Age at First : Age at Menopause: Commodities Trader History Comments: Sexual Activity: Never; No partner [...] physical therapy - or can go locally pelvicCatalist Homesab.[employer] Trial flexeril at bedtime Can consider Baclofen [...] physical therapy - or can go locally pelvicCatalist Homesab.In[employer] Trial flexeril at bedtime Can consider Baclofen suppositories - let me know if you want to trial after you go to PT Contin (more content not included)...NormalAcmc Healthcare SystemCHEMISTRY Ordered By: SYSTEM SYSTEM on 15-85-1519Kllebpo [Mass/Vol]4.3 g/dLNormal3.3 - 5.0 gm/dLFT RemisolAlbumin/Globulin [Mass [...] [Mass/Vol]8.8 mg/dLLow8.9 - 11.1 mg/dLFTMC RemisolChloride [Moles/Vol]100 mmol/FBac452 - 111 mmol/LFTMC RemisolCO2 [Moles/Vol]24 mmol/L Drgpus18 - 31 mmol/LFTMC RemisolCreatinine [Mass/Vol]1.0 mg/dLNormal0.5 - 1.3 mg/dLFTMC RemisolGFR/1.73 sq M.predicted among blacks MDRD (S/P/Bld) [Vol rate/Area]mL/min/1.73 k6Bseyhk>=59mL/min/1.73 m2FT[facility] Chem SGFR/1.73 sq M.predicted among non-blacks MDRD (S/P/Bld) [Vol rate/Area]mL/min/1.73 b0Ecjhmh >=59mL/min/1.73 m2FT[facility] Chem SGlobulin (S) [Mass/Vol]3.6 g/dLNormal1.4 - 4.0 gm/dLFTMC RemisolGlucose [Mass/Vol]104 mg/wUDyjwgx01 - 199 mg/dLFTMC Remisol Potassium [Moles/Vol]3.6 mmol/LNormal3.5 - 5.3 mmol/LFTMC RemisolProtein [Mass/Vol]7.9 g/dLHigh6.0 - 7.8 gm/dLFTMC RemisolSodium [Moles/Vol]134 mmol/LLow 135 - 145 mmol/LFTMC RemisolUrea nitrogen [Mass/Vol]10 mg/dLNormal5 - 21 mg/dL [facility] RemisolUrea nitrogen/Creatinine [Mass ratio]10 mg/peKakttg67 - 20FTMC RemisolHEMATOLOGYOrdered By: Amairani Jenkins on 81-34-0336Vxfqatyxkjin Ql (Bld) Present (01/31/23 2:10 PM)NormalFTMC HemeManSSErythrocyte [...] fLNormal6.4 - 10.8 fLFTMC HemeAutoSSPlatelets (Bld) [#/Vol]471.0 E9/NQftciv886.0 - 500.0 E9/LFTMC HemeAutoSSRBC (Bld) [#/Vol]4.3 E12/LNormal4.3 [...] - 0.5 E9/L [facility] HemeAutoSSLymphocytes/100 WBC (Bld)31.7 %Dzmdim59.0 - 50.0 %[facility] HemeAutoSS Lymphocytes/Leukocytes Auto (Bld) [Pure # fraction]2.4 E9/LNormal1.0 - 4.0 E9/L [facility] HemeAutoSSMonocytes/100 WBC (Bld)9.1 %Normal4.0 - 14.0 %[facility] HemeAutoSS Monocytes/Leukocytes Auto (Bld) [Pure # fraction]0.7 E9/LNormal0.2 - 1.0 E9/L [facility] HemeAutoSSNeutrophils/100 WBC (Bld)57.4 %Izuaug92.0 - 75.0 %[facility] HemeAutoSS Neutrophils/Leukocytes Auto (Bld) [Pure # fraction]4.3 E9/LNormal2.0 - 7.5 E9/L [facility] HemeAutoSSSEROLOGYOrdered By: Patricia Newton on 54-81-7192JGB.beta subunit (U) [Moles/Vol]NegativeNormalFT Man SeroURINALYSISOrdered By: Solomon Leal on 13-85-0546Sahuirimr Ql (U)Negative (01/31/23 1:57 PM)NormalNegativeFTMC UA Auto SSClarity (U)Clear (01/31/23 1:57 PM)NormalClearFTMC UA Auto SSColor (U)Yellow (01/31/23 1:57 PM)NormalYellowFTMC UA Auto SSEpithelial cells.squamous LM.HPF (Urine sed) [#/Area]3-4 /HPFNormal0-2/HPFFTMC UA Auto SSGlucose Test strip (U) [Mass/Vol]Negative (01/31/23 1:57 PM)NormalNegativeFT UA Auto SSHemoglobin Ql (U)Negative (01/31/23 1:57 PM)NormalNegativeFTMC UA Auto SSKetones (U) [Mass/Vol]Negative (01/31/23 1:57 PM)NormalNegativeFT UA Auto SSLithium.plasma/[place].RBC (Bld) [Mass ratio]0-3 /HPFNormal0-3/HPFFTMC UA Auto SSNitrite Ql (U)Negative (01/31/23 1:57 PM)NormalNegativeNOR[facility] UA Auto SSpH (U)6.0 *NA* (01/31/23 1:57 PM)Invalid Interpretation Code5.0 - 9.0[facility] UA Auto SSProtein (U) [Mass/Vol]Negative (01/31/23 1:57 PM)NormalNegativeNOR[facility] UA Auto SSSpecific gravity (U) [Rel density] 1.010 *NA* (01/31/23 1:57 PM)Invalid Interpretation Code1.005 - 1.030[facility] UA Auto SSUA Spec DescClean Catch (01/31/23 1:57 PM)NormalNORMAN [facility] UA Auto SSUrobilinogen Qn (U)0.4201951 {Aspen'U}/dL Normal0.0 - 1.0 EU/dLNORMAN REGIONAL [facility] UA Auto SSWBC Auto Ql (U)Negative (01/31/23 1:57 PM)NormalNegativeNOR[facility] UA Auto SSWBC LM.HPF (Urine sed) [#/Area]0-5 /HPFNormal0-5/HPFNORMAN [facility] UA Auto SSBLOOD BANKOrdered By: Teena Quiroz on 74-80-9836CRU/Rh InterpPositiveInvalid Interpretation CodeNORMAN [facility]ION[facility] BB SubsectionABSC Gel InterpNegative (12/30/22 11:28 AM)NormalNOR[facility] BB SubsectionCHEMISTRYOrdered By: SYSTEM SYSTEM on 29-01-8353Rqzxk gap [Moles/Vol]12 mmol/LNormal6 - 16 mEq/LFTMC RemisolCalcium [Mass/Vol]8.6 mg/dLLow8.9 - 11.1 mg/dLFTMC RemisolChloride [Moles/Vol]103 mmol/L Xagkxd111 - 111 mmol/LFTMC RemisolCO2 [Moles/Vol]26 mmol/HSsbsja07 - 31 mmol/L [facility] RemisolCreatinine [Mass/Vol]0.9 mg/dLNormal0.5 - 1.3 mg/dLFTMC Remisol GFR/1.73 sq M.predicted among blacks MDRD (S/P/Bld) [Vol rate/Area]mL/min/1.73 m9Aattpr>=59mL/min/1.73 m2FT Chem SGFR/1.73 sq M.predicted among non-blacks MDRD (S/P/Bld) [Vol rate/Area]mL/min/1.73 y1Ampmqi>=59mL/min/1.73 m2FT Chem S Glucose [Mass/Vol]105 mg/uBWceeck49 - 199 mg/dLFTMC RemisolPotassium [Moles/Vol] 3.8 mmol/LNormal3.5 - 5.3 mmol/LFTMC RemisolSodium [Moles/Vol]137 mmol/LNormal 135 - 145 mmol/LFTMC RemisolUrea nitrogen [Mass/Vol]17 mg/dLNormal5 - 21 mg/dL [facility] RemisolUrea nitrogen/Creatinine [Mass ratio]19 mg/bpAzjjxw25 - 20FT[facility] RemisolCOAGULATIONOrdered By: Courtney Tang on 18-09-2305zWHC Coag (PPP) [Time]31.5 eFjksij82.1 - 36.5 second(s)[facility] Auto CoagINR Coag (PPP) [Relative time]1.0 {INR}Invalid Interpretation CodeFTMC Auto CoagPT Coag (PPP) [Time]11.7 sNormal 9.4 - 12.5 second(s)[facility] Auto CoagHEMATOLOGYOrdered By: SYSTEM SYSTEM on 57-82-8605Dkfzswedc/100 WBC (Bld)1.2 %Normal0.0 - 2.0 %[facility] HemeAutoSS Basophils/Leukocytes Auto (Bld) [Pure # fraction]0.1 E9/LNormal0.0 - 0.2 E9/L [facility] HemeAutoSSEosinophils/100 WBC (Bld)4.1 %Normal0.0 - 8.0 %[facility] HemeAutoSS Eosinophils/Leukocytes Auto (Bld) [Pure # fraction]0.2 E9/LNormal0.0 - 0.5 E9/L [facility] HemeAutoSSLymphocytes/100 WBC (Bld)40.5 %Swuyyp27.0 - 50.0 %[facility] HemeAutoSS Lymphocytes/Leukocytes Auto (Bld) [Pure # fraction]2.3 E9/LNormal1.0 - 4.0 E9/L [facility] HemeAutoSSMonocytes/100 WBC (Bld)7.6 %Normal4.0 - 14.0 %[facility] HemeAutoSS Monocytes/Leukocytes Auto (Bld) [Pure # fraction]0.4 E9/LNormal0.2 - 1.0 E9/L [facility] HemeAutoSSNeutrophils/100 WBC (Bld)46.6 %Xdmxsz13.0 - 75.0 %[facility] HemeAutoSS Neutrophils/Leukocytes Auto (Bld) [Pure # fraction]2.6 E9/LNormal2.0 - 7.5 E9/L [facility] HemeAutoSSHEMATOLOGYOrdered By: Courtney Case on 93-75-4053Sjftlxscjex distribution width (RBC) [Ratio]14.1 %Jegbrh54.9 - 14.2 %[facility] HemeAutoSS Hematocrit (Bld) [Volume fraction]31.5 %Low34.0 - 46.0 %[facility] HemeAutoSS Hemoglobin (Bld) [Mass/Vol]10.0 g/dLLow12.0 - 16.0 gm/dLFTMC HemeAutoSSMCH (RBC) [Entitic mass]25.3 pgLow27.0 - 34.0 pgFTMC HemeAutoSSMCHC (RBC) [Mass/Vol]31.8 g/uTVrivjm62.4 - 36.0 gm/dLFTMC HemeAutoSSMCV (RBC) [Entitic vol]79.6 fLLow80.0 - 100.0 fLFTMC HemeAutoSSPlatelet mean volume (Bld) [Entitic vol]7.7 fLNormal6.4 - 10.8 fLFTMC HemeAutoSSPlatelets (Bld) [#/Vol]264.0 E9/QTyhogv894.0 - 500.0 E9/LFTMC HemeAutoSSRBC (Bld) [#/Vol]4.0 E12/LLow4.3 - 5.9 E12/LFTMC HemeAutoSS WBC corrected for nucl RBC Auto (Bld) [#/Vol]5.7 E9/LNormal4.0 - 11.0 E9/LFTMC HemeAutoSSURINALYSISOrdered By: Courtney Case on 18-06-1142Wlrwwlzi LM Ql (Urine sed)Trace /HPFNormalTrace/HPFFTMC UA Auto SSBilirubin Ql (U)Negative (12/30/22 8:53 AM)NormalNegativeNOR[facility] UA Auto SSClarity (U)Clear (12/30/22 8:53 AM)NormalClearFCHICKASAW NATION [facility] UA Auto SSColor (U)Yellow (12/30/22 8:53 AM)NormalYellowNORMAN REGIONAL [facility] UA Auto SSEpithelial cells.squamous LM.HPF (Urine sed) [#/Area]0-2 /HPFNormal0-2/HPFNORMAN [facility]ION[facility] UA Auto SSGlucose Test strip (U) [Mass/Vol]Negative (12/30/22 8:53 AM)NormalNegativeNOR[facility] UA Auto SSHemoglobin Ql (U)2+ *ABN* (12/30/22 8:53 AM)Invalid Interpretation CodeNegativeNOR[facility] UA Auto SSKetones (U) [Mass/Vol]Negative (12/30/22 8:53 AM)NormalNegativeNOR[facility] UA Auto SSLithium.plasma/[place].RBC (Bld) [Mass ratio]4-20 /HPFNormal0-3/HPFNORMAN REGIONAL [facility] UA Auto SSNitrite Ql (U)Negative (12/30/22 8:53 AM)NormalNegativeNOR[facility] UA Auto SSpH (U)6.0 *NA* (12/30/22 8:53 AM)Invalid Interpretation Code5.0 - 9.0[facility] UA Auto SSProtein (U) [Mass/Vol]Negative (12/30/22 8:53 AM)NormalNegativeNOR[facility] UA Auto SSSpecific gravity (U) [Rel density] 1.025 *NA* (12/30/22 8:53 AM)Invalid Interpretation Code1.005 - 1.030[facility] UA Auto SSUA Spec DescClean Catch (12/30/22 8:53 AM)NormalNORMAN REGIONAL [facility] UA Auto SSUrobilinogen Qn (U)0.2964009 {Aspen'U}/dL Normal0.0 - 1.0 EU/dLNORMAN REGIONAL [facility] UA Auto SSWBC Auto Ql (U)Negative (12/30/22 8:53 AM)NormalNegativeNOR[facility] UA Auto SSWBC LM.HPF (Urine sed) [#/Area]0-5 /HPFNormal0-5/HPFNORMAN REGIONAL [facility] UA Auto SSOffice Visiton 79-20-7252Jtjlqx-up [id number] Juhi Cope 1995 F Date Provider Department Center 12/05/2022 [id number], GINA [facility] W[facility] None Chart Close Cosign Required by: Opal Ross MD[VARUND] No family history on file Level of Service:84115 MT OFFICE/OUTPATIENT ESTABLISHED LOW MDM 20-29 MIN (GE,GC) Reason for Visit and Comments: Blood Pressure Check [299][facility] SHSProgress Noteon 11-50-7033Fhiysgzu Note Attestation signed by Opal Ross MD at 12/05/2022 3:19 PM [facility]: This patient was seen in the [...] about 4 weeks (around 01/02/2023) for Visit .[facility] SHSProgress NoteVital signs BP 127/87 Weight 149.2lb Pulse 106 Temp 96.7NoSouthwest [facility] SHSProgress Noteon 13-84-8828Rjxzecih Note Late entry due to patient care. Resident Lacy notified of B.P 138/96 heart rate 119 around 1236 see flowsheet. Also notified checked in 1 hour via orders and B.P 143/87 pulse 111. Clarified if should check in 1 hour according to orders. . Also notified patient has discharge order in. Resident Lacy states No on rechecking. Ok to discharge. Will make patient aware.[facility] SHSProgress NotePOSTPARTUM VAGINAL DELIVERY POST [...] Name: DO Vanessa Zambrano DO 12/02/2022, 5:09 [facility]42on 43-04-62745022.5mm flanges given to patient. Encouraged her to call for observation of pump session and smaller flanges. Martha in NICU to assist with personal pump.[facility] CenterCARECOORDon 88-79-4945REKAVMYYP02 year old admitted for induction of labor [...] to home. Denies any concerns at this time.[facility] SHSProgress Noteon 00-46-3258Nprbnzqx Note NOTE - VAGINAL DELIVERY POST DAY [...] with more than 50% of the total vpks-xj-idvh time of the visit in counseling/coordination of care. , 9:22 [facility] KBQ66kw 76-60-007247Irdgk given to patient and educated how to use and to bring to [facility] UEN30Rqiiru pump use indicated for this pt. 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 Bowden; Dr. Kramer Information: Information for the patient's : Francie oCpe [[id number]] Information for the patient's : Francie Cope [[id number]] Description: normal Meconium Noted: No Anesthesia: epidural [...] for: RUBELLAIGG Irina Kramer, DO 11/30/2022, 4:[address] [facility] [facility] SHSProgress Noteon 19-60-5147Pkqdwyke NoteFoley catheter inserted by Andi Bacon RN, catheter drained and emptied for 900cc. Catheter secured to leg.[facility] SHSProgress NotePatient up to bathroom but remains unable to void. Bladder scan completed and reads >570. Sent secure message to Dr. Ruiz letting her know the above. Instructed to place chauhan catheter.[facility] FargoProgress Note Secure message sent to Dr. Gamez stating patient is having difficulty voiding, patient's perineum is very swollen, and that patient was straight cathed for 950ml at noon. Received order for benadryl to help with swelling. [facility] FargoProess NoteNutrition rescreen completed. Chart reviewed. Patient to be monitored and followed by the diet thermal technician. Suad Samuels, DTWestchester Medical Center SHSProgress NotePatient unable to void, last straight cathed at 0400. Bladder scan obtained for >928 ml, fundus +2 and shifted to right. Patient straight cathed on attempt x2 by Andi Bacon RN for 950cc. Will continue to monitor.[facility] SHSCAREPLNon 13-91-2362SMYMYJJYmj patient will continue to make cervical change. Clotilde Mg, RNNoSouthwest Healthcare Services Hospital SHSLaboratory - Hematology and Cell countsOrdered By: Lucrecia Cervantes on 69-00-1578Hkbxxmlaj (Bld) [#/Vol]386 10*3/uL140 - 440 10*3/uLSufairfield medical center HealthPlatelets (Bld) [#/Vol]Ordered By: Lucrecia Cervantes on 12-33-2931Pufdfilvgxencv and review of laboratory resultsNormal [facility]. agalactiae DNA TENA+probe Ql (Unsp spec)on 11-29-2022 Group B Strep ScreenNot detectedNot [facility] HealthInterpretation and review of laboratory resultsNoBarnesville HospitalMethodology: real-time PCRSMercyOne Clinton Medical CenterABO and Rh group Confirm Nom (Bld)on 32-67-0368AIL group Nom (Bld)OSumma HealthD Ag Ql (RBC)PositiveSumAvita Health System [facility] HealthBlood type and Crossmatch panel (Bld)on 84-30-3918NSI group Nom (Bld)OSumma HealthBlood group antibody screen GEL QlNegativeSumma HealthD Ag Ql (RBC)PositiveSumwv Healthmma HealthCBC panel Auto (Bld)Ordered By: Lauren Ayers on 32-57-9289Yaqgqlytxay distribution width (RBC) [Ratio]13.3 %11.5 - 14.5 %[facility] Hospitala HealthHematocrit (Bld) [Volume fraction]33.8 %Low35.0 - 47.0 %[facility]ma HealthHemoglobin (Bld) [Mass/Vol] 11.2 g/dLLow11.7 - 16.0 g/dLSumma HealthInterpretation and review of laboratory resultsAbnormalSMercy Health Kings Mills HospitalH (RBC) [Entitic mass]28.0 pg26.0 - 34.0 pgSMercy Health Kings Mills HospitalHC (RBC) [Mass/Vol]33.1 %32.0 - 36.0 %[facility] Hospitala HealthMCV (RBC) [Entitic vol]84.4 fL80.0 - 98.0 fLSumma HealthPlatelet mean volume (Bld) [Entitic vol]8.3 fL7.4 - 12.4 fLSumma HealthPlatelets (Bld) [#/Vol]319 10*3/uL140 - 440 10*3/uL [facility]ma HealthRBC (Bld) [#/Vol]4.00 10*6/uL3.8 - 5.20 10*6/uLSumma HealthWBC (Bld) [#/Vol]18.9 10*3/uLHigh3.6 - 10.7 10*3/uLSumma HealthCleveland Clinic [facility] HealthComprehensive metabolic 1998 panelon 09-12-6765Jnyhdow [Mass/Vol]3.9 g/dL3.5 - 5.0 g/dLSumma HealthALP [Catalytic [...] HealthGFR/1.73 sq M.predicted MDRD (S/P/Bld) [Vol rate/Area]- [facility] HospitalComment on above: Calculation based on the Chronic Kidney Disease Epidemiology Collaboration (CKD- EPI) equation refitwithout adjustment for raceGlucose [Mass/Vol]158 mg/jVUqqb89 - 100 mg/dLSumma HealthInterpretation and review of laboratory resultsAbnormal [facility] HealthPotassium [Moles/Vol]4.1 mmol/L3.5 - 5.1 mmol/LSumma HealthProtein [Mass/Vol]7.5 g/dL6.3 - 8.2 g/dLSumma HealthSodium [Moles/Vol]133 mmol/RErp157 - 145 mmol/LSumma HealthUrea nitrogen [Mass/Vol]5 mg/dLLow7 - 17 mg/dLSumma HealthSumma HealthLaboratory - Hematology and Cell countsOrdered By: Shruthi Fontana on 82-95-4589Quwvovtki (Bld) [#/Vol]335 10*3/uL140 - 440 10*3/uLSumma HealthPlatelets (Bld) [#/Vol]Ordered By: Shruthi Fontana on 11-28-2022 Interpretation and review of laboratory resultsNormUniversity Hospitals Health System Health CHEMISTRYOrdered By: Lupatech on 61-72-3917Tsuk T4 index Calc [Mass/Vol] 5.98 ng/dLNormal5.90 - [...] Code0.1 - 0.9 mg/dL FT RemisolChloride [Moles/Vol]102 mmol/DXusmqg642 - 111 mmol/LFTMC RemisolCO2 [Moles/Vol]18 mmol/LLow21 - 31 mmol/LFTMC RemisolCreatinine [Mass/Vol]0.6 mg/dL Normal0.5 - 1.3 mg/dLFTMC RemisolGFR/1.73 sq M.predicted among blacks MDRD (S/P/Bld) [Vol rate/Area]mL/min/1.73 g8Kuutjy>=59mL/min/1.73 m2[facility] Chem S GFR/1.73 sq M.predicted among non-blacks MDRD (S/P/Bld) [Vol rate/Area] mL/min/1.73 n9Dwruoy>=59mL/min/1.73 m2[facility] Chem SGlobulin (S) [Mass/Vol]4.0 g/dL Normal1.4 - 4.0 gm/dLNORMAN REGIONAL [facility] RemisolPotassium [Moles/Vol]3.7 mmol/LNormal3.5 - 5.3 mmol/LFTMC RemisolProtein [Mass/Vol]7.1 g/dLNormal6.0 - 7.8 gm/dLNORMAN REGIONAL [facility] Remisol Sodium [Moles/Vol]132 mmol/XKkv048 - 145 mmol/LFTMC RemisolUrate [Mass/Vol]4.9 mg/dLNormal2.2 - 7.4 mg/dLNORMAN REGIONAL [facility] RemisolUrea nitrogen [Mass/Vol]7 mg/dLNormal5 - 21 mg/dLNORMAN REGIONAL [facility] RemisolCOAGULATIONOrdered By: Amairani Jenkins on 49-15-7367jFBG Coag (PPP) [Time]25.3 lShbezb97.1 - 36.5 second(s)[facility] Auto Coag Fibrin+Fibrinogen fragments (S) [Mass/Vol]>10 and <40 *ABN* (11/27/22 3:14 PM)Invalid Interpretation Code<10[facility] Man SeroFibrinogen Coag (PPP) [Mass/Vol]539 mg/rURdax194 - 393 mg/dLNORMAN REGIONAL HOS[facility]ITAL [facility] Auto CoagINR Coag (PPP) [Relative time]0.9 {INR}Invalid Interpretation CodeNORMAN REGIONAL [facility]OS[facility]ITAL [facility] Auto CoagPT Coag (PPP) [Time]10.1 sNormal9.4 - 12.5 second(s)[facility] Auto CoagHEMATOLOGYOrdered By: Raquel Arteaga on 51-77-8232Wirnvdyxnax distribution width (RBC) [Ratio]12.9 %Eehbxk45.9 - 14.2 % [facility] HemeAutoSSHematocrit (Bld) [Volume fraction]34.2 %Lhwbxz17.0 - 46.0 %[facility] HemeAutoSSHemoglobin (Bld) [Mass/Vol]11.0 g/dLLow12.0 - 16.0 gm/dLNORMAN REGIONAL [facility] HemeAutoSSMCH (RBC) [Entitic mass]27.3 vlXsfxdr57.0 - 34.0 pgFTMC HemeAutoSSMCHC (RBC) [Mass/Vol]32.3 g/bGRjfsiy42.4 - 36.0 gm/dLFT HemeAutoSSMCV (RBC) [Entitic vol]84.6 yIGztcal71.0 - 100.0 fLFT HemeAutoSSPlatelet mean volume (Bld) [Entitic vol]8.2 fLNormal6.4 - 10.8 fLFT HemeAutoSSPlatelets (Bld) [#/Vol]273.0 E9/BZxuolk974.0 - 500.0 E9/LFC HemeAutoSSRBC (Bld) [#/Vol]4.0 E12/LLow4.3 - 5.9 E12/LFCHICKASAW NATION MEDICAL CENTER [facility] HemeAutoSSWBC corrected for nucl RBC Auto (Bld) [#/Vol]15.7 E9/LHigh4.0 - 11.0 E9/LFC HemeAutoSSComment on above:Result Comment: Slide reviewed by ts Unable to obtain accurate platelet count due to platelet clumping. Platelet count estimate appears normal on slide..URINALYSISOrdered By: Amairani Jenkins on 22-36-0978Yeykddunq Ql (U)Negative (11/27/22 1:55 PM)NormalNegativeNOR[facility] UA Auto SSClarity (U)Clear (11/27/22 1:55 PM)NormalClearFCHICKASAW NATION MEDICAL [facility] UA Auto SSColor (U)Yellow (11/27/22 1:55 PM)NormalYellowFT UA Auto SSEpithelial cells.squamous LM.HPF (Urine sed) [#/Area]3-4 /HPFNormal0-2/HPFFTMC UA Auto SSGlucose Test strip (U) [Mass/Vol]Negative (11/27/22 1:55 PM)NormalNegativeNOR[facility] UA Auto SSHemoglobin Ql (U)1+ *ABN* (11/27/22 1:55 PM)Invalid Interpretation CodeNegativeFT UA Auto SSKetones (U) [Mass/Vol]Negative (11/27/22 1:55 PM)NormalNegativeNOR[facility] UA Auto SSLithium.plasma/[place].RBC (Bld) [Mass ratio]4-20 /HPFNormal0-3/HPFNORMAN REGION[facility] UA Auto SSNitrite Ql (U)Negative (11/27/22 1:55 PM)NormalNegativeNOR[facility] UA Auto SSpH (U)6.5 *NA* (11/27/22 1:55 PM)Invalid Interpretation Code5.0 - 9.0[facility] UA Auto SSProtein (U) [Mass/Vol]Negative (11/27/22 1:55 PM)NormalNegativeNOR[facility] UA Auto SSSpecific gravity (U) [Rel density] 1.010 *NA* (11/27/22 1:55 PM)Invalid Interpretation Code1.005 - 1.030[facility] UA Auto SSUA Spec DescClean Catch (11/27/22 1:55 PM)NormalNORMAN REGIONAL [facility]ITAL [facility] UA Auto SSUrobilinogen Qn (U)0.8984508 {Aspen'U}/dL Normal0.0 - 1.0 EU/dLNORMAN [facility]IONAL [facility] [place] UA Auto SSWBC Auto Ql (U)Negative (11/27/22 1:55 PM)NormalNegativeNORMAN [facility]ION[facility] [place] [facility]A Auto SSWBC LM.HPF (Urine sed) [#/Area]0-5 /HPFNormal0-5/HPFNORMAN REGIONAL [facility] [place] [facility]A Auto SSCHEMISTRYOrdered By: SYSTEM SYSTEM on 07-14-2022 Albumin [Mass/Vol]3.6 g/dLNormal3.3 - 5.0 gm/dLNORMAN [facility]IONAL [facility] [place] RemisolAlbumin/Globulin [Mass ratio]1.1 {ratio}Normal1.1 - 2.2[facility] RemisolALP [Catalytic activity/Vol]41 [iU]/oJirtdo41 - 98 Int._Unit/LFT[facility] RemisolALT No additional P-5'-P [Catalytic activity/Vol]19 [iU]/dNormal6 - 46 Int._Unit/LFT[facility] RemisolAnion gap [Moles/Vol] 11 mmol/LNormal6 - 16 mEq/L[facility] RemisolAST [Catalytic activity/Vol]21 [iU]/d Normal5 - 43 Int._Unit/L[facility] RemisolBilirubin [Mass/Vol]0.7 mg/dLNormal0.0 - 1.1 mg/dLNORMAN [facility] [place] RemisolBilirubin.direct [Mass/Vol]0.1 mg/dLNormal0.1 - 0.4 mg/dLFTMC RemisolBilirubin.indirect [Mass or moles/Vol]0.6 mg/dLNormal0.1 - 0.9 mg/dLFT[facility] RemisolCalcium [Mass/Vol]8.9 mg/dLNormal8.9 - 11.1 mg/dLFT[facility] RemisolChloride [Moles/Vol]107 mmol/ELkwstc398 - 111 mmol/LFT[facility] RemisolCO2 [Moles/Vol]22 mmol/L Lvhmgu31 - 31 mmol/LFT[facility] RemisolCreatinine [Mass/Vol]0.6 mg/dLNormal0.5 - 1.3 mg/dLFT[facility] RemisolGFR/1.73 sq M.predicted among blacks MDRD (S/P/Bld) [Vol rate/Area]mL/min/1.73 t0Vljiyl>=59mL/min/1.73 m2[facility] Chem SGFR/1.73 sq M.predicted among non-blacks MDRD (S/P/Bld) [Vol rate/Area]mL/min/1.73 i9Qexwyd >=59mL/min/1.73 m2[facility] Chem SGlobulin (S) [Mass/Vol]3.3 g/dLNormal1.4 - 4.0 gm/dLFT[facility] RemisolGlucose [Mass/Vol]99 mg/sKHxpyqv78 - 199 mg/dLFT[facility] Remisol Potassium [Moles/Vol]3.5 mmol/LNormal3.5 - 5.3 mmol/LFT[facility] RemisolProtein [Mass/Vol]6.9 g/dLNormal6.0 - 7.8 gm/dLFT[facility] RemisolSodium [Moles/Vol]136 mmol/L Ehwovn510 - 145 mmol/LFT[facility] RemisolUrea nitrogen [Mass/Vol]8 mg/dLNormal5 - 21 mg/dLFT[facility] RemisolUrea nitrogen/Creatinine [Mass ratio]13 mg/mkWyxolb55 - 20[facility] RemisolHEMATOLOGYOrdered By: SYSTEM SYSTEM on [id number]/100 WBC (Bld) 0.3 %Normal0.0 - 2.0 %[facility] [...] 7.5 E9/LFTMC HemeAutoSSHEMATOLOGYOrdered By: Teena Quiroz on [id number] distribution width (RBC) [Ratio]12.9 %Normal 10.9 - 14.2 %[facility] HemeAutoSSHematocrit (Bld) [Volume fraction]33.6 %Low34.0 - 46.0 %[facility] HemeAutoSSHemoglobin (Bld) [Mass/Vol]11.5 g/dLLow12.0 - 16.0 gm/dL [facility] HemeAutoSSMCH (RBC) [Entitic mass]28.5 ldHlkzkb85.0 - 34.0 pgFTMC HemeAutoSSMCHC (RBC) [Mass/Vol]34.1 g/gRStulpn96.4 - 36.0 gm/dLFTMC HemeAutoSS MCV (RBC) [Entitic vol]83.5 nGWqfynx41.0 - 100.0 fLFTMC HemeAutoSSPlatelet mean volume (Bld) [Entitic vol]8.1 fLNormal6.4 - 10.8 fLNORMAN [facility]ION[facility] HemeAutoSSPlatelets (Bld) [#/Vol]271.0 E9/HNqxqop850.0 - 500.0 E9/[facility] HemeAutoSSRBC (Bld) [#/Vol] 4.0 E12/LLow4.3 - 5.9 E12/[facility] HemeAutoSSWBC corrected for nucl RBC Auto (Bld) [#/Vol]13.9 E9/LHigh4.0 - 11.0 E9/[facility] HemeAutoSSURINALYSISOrdered By: Deirdre Gilliam on 29-75-9065Mflykpvs LM Ql (Urine sed)Trace /HPFNormalTrace/HPFNORMAN REGIONAL [facility] UA Auto SSBilirubin Ql (U)Negative (07/14/22 5:00 AM)NormalNegativeNORMAN [facility] UA Auto SSClarity (U)Clear (07/14/22 5:00 AM)NormalClearFCHICKASAW NATION MED[facility] – [facility] UA Auto SSColor (U)Yellow (07/14/22 5:00 AM)NormalYellowNORMAN REGIONAL [facility] UA Auto SSEpithelial cells.squamous LM.HPF (Urine sed) [#/Area]3-4 /HPFNormal0-2/HPFNORMAN [facility]IONAL [facility] UA Auto SSGlucose Test strip (U) [Mass/Vol]Negative (07/14/22 5:00 AM)NormalNegativeNORMAN [facility] UA Auto SSHemoglobin Ql (U)Trace *ABN* (07/14/22 5:00 AM)Invalid Interpretation CodeNegativeNORMAN [facility] UA Auto SSKetones (U) [Mass/Vol]Negative (07/14/22 5:00 AM)NormalNegativeNORMAN [facility] UA Auto SSLithium.plasma/[place].RBC (Bld) [Mass ratio]0-3 /HPFNormal0-3/HPFNORMAN REGIONAL [facility] UA Auto SSMucus Ql (Urine sed)Trace (07/14/22 5:00 AM)NormalNORMAN REGIONAL [facility] UA Auto SSNitrite Ql (U)Negative (07/14/22 5:00 AM)NormalNegativeNORMAN [facility] UA Auto SSpH (U)6.0 *NA* (07/14/22 5:00 AM)Invalid Interpretation Code5.0 - 9.0[facility] UA Auto SSProtein (U) [Mass/Vol]Negative (07/14/22 5:00 AM)NormalNegativeNORMAN [facility] UA Auto SSSpecific gravity (U) [Rel density] 1.020 *NA* (07/14/22 5:00 AM)Invalid Interpretation Code1.005 - 1.030[facility] UA Auto SSUA Spec DescClean Catch (07/14/22 5:00 AM)NormalNORMAN REGIONAL [facility] UA Auto SSUrobilinogen Qn (U)0.5572263 {Aspen'U}/dLNormal0.0 - 1.0 EU/dLNORMAN REGIONAL [facility] UA Auto SSWBC Auto Ql (U)Negative (07/14/22 5:00 AM)NormalNegativeNORMAN [facility] UA Auto SSWBC LM.HPF (Urine sed) [#/Area]0-5 /HPFNormal0-5/HPFNORMAN REGIONAL [facility] UA Auto SSCHEMISTRYOrdered By: SYSTEM SYSTEM on 37-05-0009Pfkojzw [Mass/Vol]4.4 g/dLNormal3.3 - 5.0 gm/dLFTMC Remisol Albumin/Globulin [Mass ratio]1.1 {ratio}Normal1.1 - 2.2[facility] RemisolALP [Catalytic activity/Vol]64 [iU]/nOndgax15 - 98 Int._Unit/LFTMC RemisolALT No additional P-5'-P [Catalytic activity/Vol]107 [iU]/dHigh6 - 46 Int._Unit/LFTMC RemisolAST [Catalytic activity/Vol]63 [iU]/dHigh5 - 43 Int._Unit/LFTMC Remisol Bilirubin [Mass/Vol]1.5 mg/dLHigh0.0 - 1.1 mg/dLFTMC RemisolBilirubin.direct [Mass/Vol]0.2 mg/dLNormal0.1 - 0.4 mg/dLFTMC RemisolBilirubin.indirect [Mass or moles/Vol]1.3 mg/dLHigh0.1 - 0.9 mg/dLFTMC RemisolCholesterol [Mass/Vol]193 mg/kAJdvzkw045 - 200 mg/dLFTMC RemisolCholesterol in HDL [Mass/Vol]64 mg/dL Invalid Interpretation CodeFTMC RemisolCholesterol in LDL [Mass/Vol]116 mg/dL Normal<=129mg/dLFTMC RemisolCholesterol in VLDL [Mass/Vol]13 mg/dLNormal7 - 40 mg/dLFTMC RemisolGlobulin (S) [Mass/Vol]3.9 g/dLNormal1.4 - 4.0 gm/dLFTMC RemisolProtein [Mass/Vol]8.3 g/dLHigh6.0 - 7.8 gm/dLFTMC RemisolTriglyceride [Mass/Vol]67 mg/dLNormal<=149mg/dLFTMC RemisolCOAGULATIONOrdered By: Courtney Case on 54-19-7787GOH Coag (PPP) [Relative time]1.0 {INR}Invalid Interpretation Code [facility] Auto CoagPT Coag (PPP) [Time]12.4 eQsixmx05.2 - 12.9 second(s)[facility] Auto CoagHEMATOLOGYOrdered By: SYSTEM SYSTEM on 00-06-0572Pohpnoqzl/100 WBC (Bld)0.7 %Normal0.0 - 2.0 %[facility] HemeAutoSSBasophils/Leukocytes Auto (Bld) [Pure # fraction]0.0 E9/LNormal0.0 - 0.2 E9/LFTMC HemeAutoSSEosinophils/100 WBC (Bld)3.2 %Normal0.0 - 8.0 %[facility] HemeAutoSSEosinophils/Leukocytes Auto (Bld) [Pure # fraction]0.2 E9/LNormal0.0 - 0.5 E9/LFTMC HemeAutoSSLymphocytes/100 WBC (Bld) 31.9 %Jjyrht61.0 - 50.0 %[facility] HemeAutoSSLymphocytes/Leukocytes Auto (Bld) [Pure # fraction]1.9 E9/LNormal1.0 - 4.0 E9/LFTMC HemeAutoSSMonocytes/100 WBC (Bld)9.1 %Normal4.0 - 14.0 %[facility] HemeAutoSSMonocytes/Leukocytes Auto (Bld) [Pure # fraction]0.5 E9/LNormal0.2 - 1.0 E9/LFTMC HemeAutoSSNeutrophils/100 WBC (Bld) 55.1 %Xapnyn07.0 - 75.0 %[facility] HemeAutoSSNeutrophils/Leukocytes Auto (Bld) [Pure # fraction]3.3 E9/LNormal2.0 - 7.5 E9/LFTMC HemeAutoSSHEMATOLOGYOrdered By: Chivo Ward on 54-45-7920Crxswddatbj distribution width (RBC) [Ratio]12.9 % Vlmimy11.9 - 14.2 %[facility] HemeAutoSSHematocrit (Bld) [Volume fraction]40.1 %Normal 34.0 - 46.0 %[facility] HemeAutoSSHemoglobin (Bld) [Mass/Vol]13.2 g/nGClpvns66.0 - 16.0 gm/dLFTMC HemeAutoSSMCH (RBC) [Entitic mass]27.7 xeTjhvyt00.0 - 34.0 pgFTMC HemeAutoSSMCHC (RBC) [Mass/Vol]32.8 g/qNIyfhod97.4 - 36.0 gm/dLFTMC HemeAutoSS MCV (RBC) [Entitic vol]84.3 eDTudksi74.0 - 100.0 fLFTMC HemeAutoSSPlatelet mean volume (Bld) [Entitic vol]8.5 fLNormal6.4 - 10.8 fLFTMC HemeAutoSSPlatelets (Bld) [#/Vol]299.0 E9/BLucxxv496.0 - 500.0 E9/LFTMC HemeAutoSSRBC (Bld) [#/Vol] 4.8 E12/LNormal4.3 - 5.9 E12/LFTMC HemeAutoSSWBC corrected for nucl RBC Auto (Bld) [#/Vol]5.9 E9/LNormal4.0 - 11.0 E9/LFC HemeAutoSSLMPon 46-45-0410Udev risk assessmenta) No falls within the last hjfzEG-CNLCW-Pwcnpe 320 Work Phone: Last menstrual period start ckpouuvirdOT-KRPYU-Xvhyhv 320 Work Phone: Tobacco use status CPHSb) CdUG-AREYZ-Bthwhb 320 Work Phone: OB/DIRECTOR 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 CH NEGATIVE TURNER History of Present Qqfmclb79 yo presents as a follow up for [...] again engaged x 1 year working at [employer] [place] Review of Systems Constitutional: no fever, no [...] hours Vitals Vital Signs Recorded: 09Feb2022 11:41AM Dstmyijj205 Bmtnfztvg02 Height5 ft 2 in Zbrjux576 lb BMI Vdwgvikugm32.51 kg/m2 BSA Calculated1.61 Tobacco Useb) No Fall [...] NormalUH TouchworksXR KNEE LEFT (MIN 4 VIEWS)on 35-52-3060JA KNEE LEFT (MIN 4 VIEWS)EXAM: XR KNEE [...] Joe Lopez MD 09/29/21 Final resultNormalMercy Marcin Lifepoint HospitalsOB/DIRECTOR OF THERAPY SERVICES - Office Visiton 54-73-8276LI/DIRECTOR OF THERAPY SERVICES - Office VisitDiagnoses/Problems Assessed Anxiety (300.00) (F41.9) Orders Start: FLUoxetine HCl - 20 MG Oral Capsule; TAKE 1 CAPSULE Daily Provider Impressions 26 yo 1. 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 CH NEGATIVE TURNER History of Present Wfwdnyj23 yo with endometriosis was on norethindrone d/c'd [...] Every 6 hours Vitals Vital Signs Recorded: 79Cgp1109 01:19PM Ctbcwhdz822 Pinzrysmr53 Height5 ft 2 in Nzbieu069 lb BMI Nldfsbucwo38.58 kg/m2 BSA Calculated1.53 Tobacco Useb) No Fall Screeninga) No falls within the last year XPT39Rxg9170 Pain Scale0 Signatures Electronically signed by : Charlene Rodriguez DO; Jun 03 2021 10:55AM EST (Author) NormalUH TouchworksChlamydia sp identified Org specific cx Nom (Genital specimen)Ordered By: Jackelyn Dela Cruz on 47-81-9744Aqklsjus Chlamydia Screen NegativeNegativeSumwv HealthHBV surface Ag IA Qlon 55-35-3848Hwlcwyji Hepatitis B Surface AgNegativeNegative, None DetectedSumma HealthHIV 1+2 Ab and HIV1 p24 Ag IA.rapid Nom (S/P/Bld)on 86-06-9377MLO-1/HIV-2 AbNegativeSumma HealthNo Panel Informationon 55-32-2000Dtrasaib Gonorrhea ScreenNegativeNegativeSumma Health External Rubella IGG QuantitationPositiveSumma HealthSumma HealthNo Panel InformationOrdered By: Jackelyn Dela Cruz on 01-58-0299Mrnca HealthReagin Ab RPR Ql (S)on 86-57-2285Vpvgkcrj RPRNon-ReactiveBorderline, Nonreactive, Weakly Reactive, EquivocalSumma HealthOB/DIRECTOR OF THERAPY SERVICES - Office Visiton 29-65-0712NU/DIRECTOR OF THERAPY SERVICES - Office VisitDiagnoses/Problems Assessed Endometriosis (617.9) (N80.9) Never smoker Orders Stop: Norethindrone Acetate 5 MG Oral Tablet Tobacco Use Screening; Status:Complete; Done: 39Vuj4498 Provider Impressions 26 yo 1. endometriosis: rx'd norethindrone referral to pelvic floor PT rtc in 3-6 months if continues to have pain, will consider centrally acting neuromodulator Chief Complaint Patient presents today for f/u for endometriosis PAP per patient 2019 WNL Poultice Machine Operator declined -CATY,NEGATIVE TURNER LMP 04/11/21 History of Present Sxssptj65 yo with endometriosis bleeding once per month, [...] DO; Apr 20 2021 11:04AM EST (Author) [facility] TouchworksTobacco Screening.on 63-88-4786Fmdb risk assessmenta) No falls within the last tpzrCS-XKYDP-Rosnaj 320 Work Phone: Lasa menstrual period start iami54Pfn0696 JR-ZXRIT-Dfmvpf 320 Work Phone: Tobacco Screening.b) FzGZ-HSRJA-Ygmcsh 320 Work Phone: Radiologyon 87-01-3616LZ Kidney - bilateralNormal TU-Pbrfdxg-Yvafbsldy Work Phone: us RENAL BILATon 67-53-2035GB RENAL BILATMRN: [id number] Patient Name: JUHI COPE STUDY: US RENAL BILAT; 04/14/2021 1:14 pm INDICATION: Recurrent UTI. COMPARISON: None. ACCESSION NUMBER(S): [id number] ORDERING CLINICIAN: TERI CHAU TECHNIQUE: Multiple images [...] ultrasound. Electronically signed by: GENEVIEVE CAR STUPIN, MDLifecare Behavioral Health [facility] Office Visit (Urology)on 87-36-7174Stpyxg-up visitDiagnoses/Problems Assessed Recurrent UTI (599.0) (N39.0) Orders Recurrent UTI Start: Nitrofurantoin Monohyd Macro 100 MG Oral Capsule; TAKE 1 CAPSULE Other Please take one capsule after sexual intercourse to prevent UTI Rx By: Teri Chau; Dispense: 30 Days ; #:30 Capsule; Refill: 11;For: Recurrent UTI; ROSY = N; Verified Transmission to [facility] [employer] Ultrasound Kidney Bilateral; Status:Hold For - Scheduling; Requested for:02Pyb8834; Perform:[facility] Radiology Services Imaging; Due:22Qyq3430; Last Updated By:Isela Terrazas; 04/01/2021 9:16:17 AM;Ordered; [...] UTI; ROSY = N; [place] [address] Provider Impressions 26 year old female with history of endometriosis presents today via telehealth as a new patient forevaluation of recurrent UTIs. She reports getting UTIs at least once per month, noting occasional nocturia. Symptoms include burning, frequency, and back pain. She states that some UTIs are related to sexual intercourse but most are not. Patient reports she saw Dr. Booth at [facility] in [place], noting she was only treated with medications and urethral dilation for a supposed stricture.Denies gross hematuria. Patient is a non-smoker. Urine culture from [facility] on 03/04/21 was positive [...] NPV - recurrent UTI History of Present Phtslpu65 year old female with history of endometriosis presents today via telehealth as a new patient for evaluation of recurrent UTIs. She reports getting UTIs at least once per month, noting occasional nocturia. Symptoms include burning, frequency, and back pain. She states that some UTIs are related to sexual intercourse but most are not. Patient reports she saw Dr. Booth at [facility] in [place], noting she was only treated with medications [...] content not included)...NormalUH TouchworksNM GASTRIC EMPTYING SOLIDon 42-33-4109HM GASTRIC EMPTYING SOLID* * *Final Report* * * DATE OF EXAM: Nov 05 2020 12:26PM [facility] 0017 - NM GASTRIC EMPTYING [...] 4 HOURS IS CONSISTENT WITH MILD GASTROPARESIS. Parts Salesperson: PSCB Transcribe Date/Time: Nov 05 2020 1:09P Dictated by : SIDDHARTH PEREA MD This examination was interpreted and the report reviewed and electronically signed by: SIDDHARTH PEREA MD on Nov 05 2020 1:24PM EST [id number] Memorial HospitalANES POSTPROC EVALon 48-31-7065BMYH POSTPROC EVALHNO ID: [id number] Author: Austin Story Service: ? Author Type: [...] October 25, 2020 TIME: 2:52 PM CSN: [id number] HospitalANES PRE-OPon 53-59-8746RMSL PRE-OPHNO ID: [id number] Author: Austin Story Service: ? Author Type: [...] October 25, 2020 TIME: 1:08 PM CSN: [id number] Hospital PATHOLOGYon 10-25-2020 SURGICAL PATHOLOGYSpecimen originated from [facility] Specimen #: [id number] Submitting Physician: MALCOLM CRUZ MD FINAL DIAGNOSIS 1. Small bowel, biopsy (A) - Small bowel mucosa with no pathologic diagnostic abnormality; negative for celiac disease, granulomas and dysplasia. 2. Stomach, biopsy (B) - Gastric oxyntic-type mucosa with no pathologic diagnostic abnormality; see comment. /[facility] 10/26/2020 COMMENT 2. No microorganisms morphologically [...] in one cassette. Gross examination performed at [facility], [address] [place] [address] 10/25/2020 7:59:40 PM Date of Report: 10/26/2020 Date of Procedure: 10/25/2020 Date of Receipt: 10/25/2020 Submitted by: MALCOLM CRUZ MD Location: [facility] Diagnostic interpretation performed at [facility], [address] [place] [address]. [place] Number: [id number] Clinic Reference LabComment on above:Performed By: #### S #### See report for performing lab information.SURGICAL PATHOLOGYSpecimen originated from [facility] Specimen #: [id number] Submitting Physician: MALCOLM CRUZ MD FINAL DIAGNOSIS 1. Small bowel, biopsy (A) - Small bowel mucosa with no pathologic diagnostic abnormality; negative for celiac disease, granulomas and dysplasia. 2. Stomach, biopsy (B) - Gastric oxyntic-type mucosa with no pathologic diagnostic abnormality; see comment. /[facility] 10/26/2020 COMMENT 2. No microorganisms morphologically [...] in one cassette. Gross examination performed at [facility], [address] [place] [address] EJL 10/25/2020 7:59:40 PM Date of Report: 10/26/2020 Date of Procedure: 10/25/2020 Date of Receipt: 10/25/2020 Submitted by: MALCOLM CRUZ MD Location: AV[facility] Diagnostic interpretation performed at [facility], [address] [place] [address]. [place] Number: [id number] Hospital and Health Services/ GROUP TESTon 63-55-6358YTD [facility] HospitalComment on above: Performed By: #### VERAB #### [facility] [address] [place], [place] [address]KX TYPEPositiveOur Lady of Lourdes Regional Medical CenterComment on above: Performed By: #### VERAB #### [facility] [address] [place], [place] [address]Yvqwm Surgical Pathology Departmenton 05-23-5872Uwnad Surgical Pathology DepartmentName JUHI COPE Pathologist: ASHLEY [...] D. Right pelvic sidewall peritoneum are 2 brop-tuo-iai, irregular fragments of tissue measuring 1.3 x [...] in toto in one cassette. SB amisha/09/02/2020 [facility] Department of Pathology [address] [place], [place] [address]VmnarnKGHarris Regional HospitalComment on above:Performed By: #### [facility] #### Rosa Surgical Pathology Department [address] [facility] [address]Ylbydrt and Physical - Surgery > 30 dayson 01-27-6772Afrargo and Physical - Surgery > 30 daysHistory [...] T&S: O+, COVID-19: negative OB Hx: None. Commodities Trader Hx: As above. PMHx: endometriosis Surg Hx: diagnostic laparoscopy, appendectomy (2016) Meds: Meloxicam, Luce-Linyah, Norethindrone acetate Social Hx: No tobacco, no [...] the note. I personally evaluated the patient ho01-Mej-5774 Attending Provider Inpatient Certification StatementObservation patient/other outpatient visits Electronic Signatures: Charlene Rodriguez () (Signed 01-Sep-2020 10:04) Authored: Note Completion Co-Signer: History of Present Illness, Home Medication Review, Impression/Procedure, ERAS, Physical Exam, Consent, Note Completion Chelsie Leal ( (Resident)) (Signed 31-Aug-2020 15:44) Authored: History of Present Illness, Home Medication Review, Impression/Procedure, ERAS, Physical Exam, Consent, Note Completion Last Updated: 01-Sep-2020 10:04 by Charlene Rodriguez ()[facility] Medical CenterHomegoing Instructionson 91-16-0895Unejnqttl InstructionsAdditional Instructions: Handouts Given: Topic 1Anesthesia Homegoing Instructions Topic 2Surgical Site Infection Handout Topic 3New Medication Education Topic 4Suggamedex handout Electronic Signatures: Aminata Gomez (DIALLO) (Signed 01-Sep-2020 16:07) Authored: Additional Instructions Last Updated: 01-Sep-2020 16:07 by Aminata Gomez (DIALLO)[facility] Regional Medical CenterPatient Profile - Preop v2on 86-25-3813Ngrtjqv Profile - Preop o0Axeuois: Initial Info: How to be Addressedalexis Spoken Language PreferredEnglish Are you currently using the Personal Electronic Health Record or Skycheckin Stated Reason for Admissionseeing if my endometriosis is back Primary Contact Name and Numberlogan [phone] Patient Belongingsclothing locker glasses with bf Medications Brought to Hospitalno General Health: Weight in kg55.6 kilogram(s) Weight in ehz525.5 pound(s) Weight Methodactual (measured) Scale Typestanding Height [...] Arrangementshouse Lives Withparent(s) Resource/Environmental Concernsnone [place]ated [place] Anticipated at Transitionnone Substance: Current or [...] Learning Preferencesverbal instruction Cultural Considerationsnone Developmental Considerationsnone Voodoo Considerationsnone Other learner availableno Falls RiskPatient location auto qualifies him/her for HIGH RISK. Are there any cultural, spiritual, lutheran practices/values/needs that are important for us to [...] Physical - Surgery > 30 days 01-Sep-2020 03:42[facility] Medical CenterPreop Checkliston 54-69-3411Dnmtt Checklist Preop Checklist: Preop Checklist: Arrival Huvu62-Saf-1985 Arrival Time12:30 Procedure Typelaparoscopic endometriosis excision NPO Yhsaum44-Yfu-2494 00:00 ID Band Onyes Allergy Bandno known [...] Last Updated: 01-Sep-2020 12:35 by Sierra Kraft (RN)[facility] Medical CenterANTIBODY IDENT.on 27-53-3701WOQXWWZA IDENT.SEE BELOWNormHarris Regional HospitalComment on above:Result Comment: NO CLINICALLY SIGNIFICANT ANTIBODIES IDENTIFIED.Performed By: #### ABID #### [facility] [address] [place], [place] [address]SGMef 69-92-8417Oaeqnwesbzi distribution width (RBC) [Ratio] 12.1 %Mceish32.5 - 14.5Robert [facility] Johnson University Hospital at RahwayComment on above:Performed By: #### CBC #### [facility] [address] [place], [place] [id number] (Bld) [Volume fraction]39.6 %Qvjaxb97.0 - 46.0Robert [facility] Hospital at RahwayComment on above:Performed By: #### CBC #### [facility] [address] [place], [place] [id number] (Bld) [Mass/Vol]12.6 g/yFUluafr86.0 - 16.0Robert [facility] Hospital at RahwayComment on above:Performed By: #### CBC #### [address] [id number] (RBC) [Mass/Vol]31.8 g/dLLow32.0 - 36.0Robert [facility] Hospital at RahwayComment on above:Performed By: #### CBC #### [address] [id number] (RBC) [Entitic vol]90 cQBrfsdv62 - 100Robert [facility] Johnson University Hospital at RahwayComment on above:Performed By: #### CBC #### [address] [id number] (Bld) [#/Vol]333 10*3/dCRoyhzj992 - 450Robert Wood Johnson University Hospital at RahwayComment on above:Performed By: #### CBC #### [address] [id number] x10E12/LNormal4.00 - 5.20[facility] Comment on above:Performed By: #### CBC #### [address] [id number] (Bld) [#/Vol]5.6 10*3/uLNormal4.4 - 11.3Robert [facility] Hospital at RahwayComment on above:Performed By: #### CBC #### [address] [id number] 2019, SCREEN ASYMPTOMATICon 06-77-2262LLED-CoV-2 (COVID-19) RNA TENA+probe Ql (Unsp spec)Not detectedNormalNot DetectedRobert Wood Johnson University Hospital at RahwayComment on above:Result Comment: This [...] patient management decisions. Fact sheet for providers: https://www.fda.gov/media/937277/download Fact sheet for patients: https://www.fda.gov/media/269719/download This test has received FDA Emergency Use Authorization (EUA) and has been verified by [facility] ([facility]). This test is only authorized for the duration of time that circumstances exist to justify the authorization of the emergency use of in vitro diagnostic tests for the detection of SARS-CoV-2 virus and/or diagnosis of COVID-19 infection under section 564(b)(1) of the Act, 21 U.S.C. 360bbb-3(b)(1), unless the authorization is terminated or revoked sooner. [facility] is certified under CLIA-88 as qualified to perform high complexity testing. Testing is performed in the [facility] laboratories located at [address] [place] [address].Performed By: #### COVSC #### [place], [place] [address]Lab Specimen SourceNasal, NasopharyngealNoGood Samaritan Medical CenterComment on above:Performed By: #### COVSC #### [place], [place] [address]TYPE + SCREENon 11-69-6723BKI MARTIN MEMORIAL HOSPITALONoFormerly Mercy Hospital SouthComment on above:Performed By: #### T+S #### [facility] [address] [place], [place] [address]RG TYPEPositiveOur Lady of Lourdes Regional Medical CenterComment on above: Performed By: #### T+S #### [facility] [address] [place], [place] [address]NNN TYPECanceledAppleton Municipal HospitalComment on above:Order Comment: TEST TYPE + SCREEN WAS CANCELLED, 08/30/2020 13:37 JOP. Performed By: #### T+S #### [facility] [address] [place], [place] [address]PO TYPECanceledNormValley View HospitalComment on above:Order Comment: TEST TYPE + SCREEN WAS CANCELLED, 08/30/2020 13:37 JOP. Performed By: #### T+S #### [facility] [address] [place], [place] [address]MLDXkl 92-99-2773DAFITfgqwad:Juhi Cope MRN: Height:5' 2 (1.575 m) Weight:120 [...] for the following basenames: K,HCT Progress Notes ([facility] MED [facility] AV4): Jaquelin Wesley Ma 10/19/2020 2:35 [...] 1 10 oz. Bottle of Magnesium Citrate (Lemon/Kletsel Dehe [place]) ? A test for COVID 19 test [...] toast without seeds (not multigrain); pretzels; waffles, Khmer toast and pancakes; white rice, noodles, pasta, macaroni, peeled cooked potatoes; Special K, Rice Krispies or [place] Flakes cereals; ripe bananas; melons (except watermelon [...] carbonated beverages such as chi aislinn or lemon-[place] soda; Gatorade? or other sports drinks (not [...] sure you have a responsible adult electric screw driver operator to take you home after procedure. Due to having sedation, you may not drive the rest of the day. ? If you need to reschedule, please call [phone] ?Date/Provider Dr Cruz Procedure:colonoscpy Facility:[facility] Prep ordered( if aware):miralax Knowledge of prep instructions:posted to [facility] Diabetic:no Blood Thinners:no Pacemaker with defibrillator:no left message for patient to return call. Nurse triage please give below message. PLEASE READ PATIENT INSTRUCTIONS BELOW. THANK YOU.[facility] on [id number] ID: [id number] Author: Leon Perkins (Rt) Fito Blanchard Service: Radiology Author Type: Transportation Planning Technician Type: Progress Notes Filed: 07/29/2020 11:06 [...] BY: RT Daya July 29, 2020 11:01 [facility] HospitalXR ABD 2V SUPINE W UPR/DECUB/CTLon 29-55-8296SD ABD 2V SUPINE W UPR/DECUB/CTL* * *Final [...] structures are normal. No other significant abnormality. Parts Salesperson: DAVID Transcribe Date/Time: Jul 29 2020 11:19A Dictated by : LALI ORNELAS MD This examination was interpreted and the report reviewed and electronically signed by: LALI ORNELAS MD on Jul 29 2020 11:19AM EST [id number]_[facility] Vital Signs Date TimeVital SignValuePerforming MltdgudcoAipzatau19-20-1748 15:04-0500Body mass index (BMI) [Ratio]30.36 kg/p3Rhgwc Kiesha DO Work Phone: [phone] [place], [place] [address]Ohtlsnobwy42-76-7613 15:04-0500Body oqisep04.3 kg Nathan Kiesha DO Work Phone: [phone] [address]-05-2025 15:04-0500Diastolic blood rooftqnl19 mm[Hg]Nathan Kiesha DO Work Phone: [phone] [place], [place] [address]Svynhklsmr28-70-0953 15:04-0500Systolic blood mm[Hg]Nathan Kiesha DO Work Phone: [phone] [place], [place] 3870110-22-2025 16:04-0400Body mass index (BMI) [Ratio]29.78 kg/i0Epxox Kiesha DO Work Phone: [phone] [place], [place] [address]Iarwtvfdmp20-32-6415 16:04-0400Body dniede02.85 kgCorey Kiesha DO Work Phone: 1(976)[facility] [place], [place] [address]Eqicuxlriv07-05-5128 16:04-0400Diastolic blood xfsxheuv95 mm[Hg]Nathan Kiesha DO Work Phone: 1(253)[facility] [place], [place] [address]Qkphyszamv42-97-8781 16:04-0400Systolic blood mhrirkln288 mm[Hg]Nathan Kiesha DO Work Phone: [phone] [address]-16-2025 10:34-0400Body mass index (BMI) [Ratio]29.26 kg/w9LjvqjejiMadhuri Monroy MD Work Phone: [facility]-16-2025 10:34-0400Body .58 kgMadhuri Monroy MD Work Phone: 1(897)577-[address] [place], [place] 1914010-16-2025 10:34-0400Diastolic blood tqjqjqfu03 mm[Hg]Madhuri Monroy MD Work Phone: 1(419)[address] [place], [place] 0515510-16-2025 10:34-0400Systolic blood oqybbsdf956 mm[Hg]Madhuri Monroy MD Work Phone: 1(419)[address] [place], [place] 0515510-10-2025 14:48-0400Body .5 cmMine Denise MD Work Phone: [phone])[address] [place], [place] 0515510-10-2025 14:48-0400Body mass index (BMI) [Ratio]29.04 kg/t6XalipfMine Denise MD Work Phone: 1(419)[address] [place], [place] 0515510-10-2025 14:48-0400Body etoyvn48.03 kgMine Denise MD Work Phone: 1(419)[address] [place], [place] 0515510-10-2025 14:48-0400Diastolic blood kiqjqiwi77 mm[Hg]Mine Denise MD Work Phone: 1(419)[address] [place], [place] 0515510-10-2025 14:48-0400Heart rate 104 /minMine Denise MD Work Phone: 1(419)[address] [place], [place] 0515510-10-2025 14:48-0400Systolic blood putptktd688 mm[Hg]Mine Denise MD Work Phone: [phone])[address] [place], [place] 0515510-09-2025 15:54-0400Body mass index (BMI) [Ratio]29.41 kg/c0SxuoylsoSteph Keane HOUSE STEWARD/STEWARDESS Work Phone: [phone] [place], [place] [address]Svhxnvtmrx67-68-7953 15:54-0400Body .94 kgSteph Keane HOUSE STEWARD/STEWARDESS Work Phone: [phone] ServicesWyqdysmwoy33-27-5055 15:54-0400Diastolic blood aetnmrhf49 mm[Hg]Steph Keane HOUSE STEWARD/STEWARDESS Work Phone: 1(450)843-[facility] ServicesAtzkdnaiet48-85-5592 15:54-0400Systolic blood omnaomvg609 mm[Hg]Steph Keane HOUSE STEWARD/STEWARDESS Work Phone: [facility] ServicesXczygginzq29-02-6596 15:37-0400Body mass index (BMI) [Ratio]29.23 kg/u8IxjfqiymSteph Keane HOUSE STEWARD/STEWARDESS Work Phone: [facility] ServicesJphxtjxyeo17-72-4627 15:37-0400Body .48 kgSteph Rickettserly HOUSE STEWARD/STEWARDESS Work Phone: [facility] ServicesVurioeemiv35-77-7351 15:37-0400Diastolic blood qylvydhf04 mm[Hg]Steph Keane HOUSE STEWARD/STEWARDESS Work Phone: [facility] ServicesPqqoejqcqs58-98-3909 15:37-0400Systolic blood nxoqlylx143 mm[Hg]Steph Rickettserly HOUSE STEWARD/STEWARDESS Work Phone: [facility] ServicesLiszpssqzu71-88-8804 15:55-0400Body mass index (BMI) [Ratio]29.45 kg/n8PaedztTeena Sarmiento RN Work Phone: 1(959)364-[address] [place], [place] 1914009-29-2025 15:55-0400Body xlpbwu44.03 kgTeena Sarmiento RN Work Phone: 1(523)862-[address] [place], [place] 5053809-17-2025 14:32-0400Body mass index (BMI) [Ratio]27.82 kg/o3Scwbq Kiesha DO Work Phone: [facility] ServicesBzrskmooyq52-79-9055 14:32-0400Body kg Nathan Kiesha DO Work Phone: [facility] ServicesWobrgvfeia72-42-6417 14:32-0400Diastolic blood qbxuruwy27 mm[Hg]Nathan Kiesha DO Work Phone: [place] [address]Rquergljdp96-04-6880 14:32-0400Systolic blood jjvhzvin645 mm[Hg]Nathan Kiesha DO Work Phone: [facility] ServicesLxrshmnuou91-39-7746 15:36-0400Body lpeuly703.5 cmGeorge Kageovanian DO Work Phone: NOSt. Luke's HospitalXbfevjtqbu75-81-9920 15:36-0400Body mass index (BMI) [Ratio]27.62 kg/g4Bbkpptsherita Beltran DO Work Phone: VZSt. Luke's HospitalKlbgfwhnjb36-67-6517 15:36-0400Body temperature 97.11 [degF]Eliceo Beltran DO Work Phone: NOSt. Luke's HospitalLclxiloosm59-37-8673 15:36-0400Body xtzvge13.49 kgGeorsherita Beltran DO Work Phone: LSSt. Luke's HospitalPugkdgntzr65-63-4769 15:36-0400Diastolic blood hutbwrcv28 mm[Hg]Eliceo Beltran DO Work Phone: VMSt. Luke's HospitalPhoqfajstg92-47-5373 15:36-0400Heart rate97 /min Eliceo Beltran DO Work Phone: [facility] ServicesWuopligbaf92-39-7661 15:36-6009YnM7% (BldA) [Mass fraction]98 %Eliceo Beltran DO Work Phone: GUSt. Luke's HospitalPzjkdifift41-54-7992 15:36-0400Systolic blood fhduybxm493 mm[Hg]Eliceo Beltran DO Work Phone: [facility] ServicesQsqaisgtjn93-23-3371 15:42-0400Body mass index (BMI) [Ratio]26.48 kg/e7Yipvr Fazio DO Work Phone: [facility] ServicesFigypqxist47-18-3560 15:42-0400Body nocrtd20.68 kgCorepearl Cabrerao DO Work Phone: [facility] ServicesHstoxylrlu53-87-1584 15:42-0400Diastolic blood hepfpwbe12 mm[Hg]Nathan Cabrerao DO Work Phone: [facility] ServicesIamxcovjqi13-90-0050 15:42-0400Systolic blood raeyyajy772 mm[Hg]Nathanpearl Cabrerao DO Work Phone: [facility] ServicesStzjvajuea56-01-6376 14:33-0400Body mass index (BMI) [Ratio]26.73 kg/l0Bvvhn Kiesha DO Work Phone: [facility] ServicesJfltmdcnkr35-44-3671 14:33-0400Body rlhlfu06.28 kgCorey Kiesha DO Work Phone: [facility] ServicesXgbkwfoogu17-64-4458 14:33-0400Diastolic blood zvpcaqfh72 mm[Hg]Nathan Kiesha DO Work Phone: 1(910)088-[address] [place], [place] [address]Gplvvipiqf14-30-0945 14:33-0400Systolic blood epjrbolz504 mm[Hg]Nathan Kiesha DO Work Phone: 1(112)764-[address] [place], [place] [address]Akjowzuggt51-45-6179 14:45-0400Body mass index (BMI) [Ratio]25.24 kg/d8Eywzc Kiesha DO Work Phone: 1(354)960-[address] [place], [place] [address]Aihstjcpad71-36-8297 14:45-0400Body vseplk24.6 kg Nathan Kiesha DO Work Phone: 1(785)216-[address] [place], [place] [address]Cwbgijuvcy90-53-4124 14:45-0400Diastolic blood muxvhhtr08 mm[Hg]Nathan Kiesha DO Work Phone: 1(688)863-[address] [place], [place] [address]Zeeohakayu38-61-3738 14:45-0400Systolic blood mm[Hg]Nathan Kiesha DO Work Phone: 1([phone])905-[address] [place], [place] [address]Jhlovizaws93-37-8535 10:29-0400Body mass index (BMI) [Ratio]25.68 kg/m2[facility]06-06-2025 10:29-0400Body tcdfme17.69 [facility]02-24-2025 15:08-0500Body mass index (BMI) [Ratio]25.99 kg/g3Dxtwi Kiesha DO Work Phone: 1(363)043-[address] [place], [place] [address]Mijyhqexil11-66-4393 15:08-0500Body fhhoct20.47 kgCorey Kiesha DO Work Phone: 1(789)533-[address] [place], [place] [address]Rrnplhcefa32-70-3677 15:08-0500Diastolic blood gpgjiwuz00 mm[Hg]Nathan Kiesha DO Work Phone: 1([phone] [place], [place] [address]Btnigwcadp76-24-4331 15:08-0500Systolic blood rbrtkadc016 mm[Hg]Nathan Kiesha DO Work Phone: 1(131)571-[address] [place], [place] [address]Tfaswjrhno95-83-4270 15:53-0500Body ouoahz813.5 cmGemartha Beltran DO Work Phone: noSt. Luke's HospitalBrcpfixfzg37-67-7780 15:53-0500Body mass index (BMI) [Ratio]25.61 kg/y5Cjuumlmartha Beltran DO Work Phone: noSt. Luke's HospitalPoquejfffb24-46-1863 15:53-0500Body temperature 97.11 [degF]Eliceo Beltran DO Work Phone: noSt. Luke's HospitalStnspafrej65-81-3824 15:53-0500Body tbhfsa08.5 kg Eliceo Beltran DO Work Phone: noSt. Luke's HospitalMfioupdauz81-56-3121 15:53-0500Diastolic blood pvsjbamt29 mm[Hg]Eliceo Beltran DO Work Phone: noSt. Luke's HospitalQjifjzciwk56-95-1107 15:53-0500Heart rate51 /min Eliceo Beltran DO Work Phone: noSt. Luke's HospitalYwcjnoscbd42-33-9167 15:53-8360RbO2% (BldA) [Mass fraction]98 %Eliceo Beltran DO Work Phone: noSt. Luke's HospitalOhqgvohkal70-79-4125 15:53-0500Systolic blood gnpiqdyj699 mm[Hg]Eliceo Beltran DO Work Phone: noSt. Luke's HospitalXkqhqgvevj50-78-1342 11:15-0400Body mass index (BMI) [Ratio]25.97 kg/x0Txzep Fazio DO Work Phone: [facility] ServicesOdulcsbowt40-09-6235 11:15-0400Body oijjbg33.41 kgNathan Pop DO Work Phone: NOSt. Luke's HospitalOkfsohjmtg04-06-2012 11:15-0400Diastolic blood utwpeyoj62 mm[Hg]Nathan Pop DO Work Phone: [facility] ServicesBkruxackpi77-63-2552 11:15-0400Systolic blood sgfpvinx079 mm[Hg]Nathan Pop DO Work Phone: noSt. Luke's HospitalNnlnyqamdk55-22-6119 10:02-0400Body mass index (BMI) [Ratio]25.39 kg/e2Qxewo Kiesha DO Work Phone: 1(598)714-[address] [place], [place] [address]Raycrvksro01-75-5638 10:02-0400Body jhgevf98.96 kgCorey Kiesha DO Work Phone: 1(968)[facility] [place], [place] [address]Muuxwsppnq65-79-6224 10:02-0400Diastolic blood lulrtwcl91 mm[Hg]Nathan Kiesha DO Work Phone: 1(261)486-[address] [place], [place] [address]Wucuootfgz22-60-5919 10:02-0400Systolic blood ukwwewxx037 mm[Hg]Nathan Kiesha DO Work Phone: 1(111)[facility] [place], [place] [address]Cgntckcxom71-61-5749 10:55-0500Body mass index (BMI) [Ratio]28.17 kg/d1Bxxee Kiesha DO Work Phone: 1(117)[facility] [place], [place] [address]Peoctrtrmv47-92-4064 10:55-0500Body gthnye27.85 kgCorey Kiesha DO Work Phone: 1(518)[facility] [place], [place] [address]Mbcjofgmil39-73-6538 10:55-0500Diastolic blood mm[Hg]Nathan Kiesha DO Work Phone: 1(251)[facility] [place], [place] [address]Wixmdfjqty36-95-9445 10:55-0500Systolic blood acglgzuv706 mm[Hg]Nathan Kiesha DO Work Phone: 1(660)[facility] [place], [place] [address]Tuyosqpdph58-50-5482 17:31-0400Body temperature 98.96 [degF][facility] [place]10-18-2023 17:31-0400 Diastolic blood mkwyxcvh98 mm[Hg][facility] [place]10-18-2023 17:31-7812UAV1 99 %[facility]10-18-2023 17:31-0400Heart pkzg304 /minV[facility]10-18-2023 17:31-0400 Respiratory rate16 /minV[facility]10-18-2023 17:31-0400 Systolic blood dvehcwqa763 mm[Hg][facility] [facility]06-06-2023 10:55-0400Body czqofy981.5 cmErin Reaper WORK COUNSELOR.PATTERN CARRIER Work Phone: [phone] Ggjusk39-62-7857 10:55-0400Body msixvi04.86 kgErin Reaper WORK COUNSELOR.PATTERN CARRIER Work Phone: [phone] Ojgokx52-13-1642 10:55-0400Diastolic blood mm[Hg]Jihan Reaper WORK COUNSELOR.PATTERN CARRIER Work Phone: [phone] Voawrz26-88-9640 10:55-0400Systolic blood dkotykfm214 mm[Hg]Jihan Reaper WORK COUNSELOR.PATTERN CARRIER Work Phone: [place] Scbmpp76-33-4784 19:18-0500Diastolic blood mm[Hg][facility]03-08-2023 19:18-0500Heart rate98 /min[facility]03-08-20[facility] 19:18-0500Nursing Progress Note ReasonOther: this RN discharged pt. pt verbalizes understanding and denies questiosn prior to discharge.[facility]03-08-2023 19:18-0500Respiratory rate16 /min[facility]03-08-2023 19:18-8284MpM8% (BldA) [Mass fraction]100 %[facility]03-08-2023 19:18-0500 Systolic blood qgvieqoo760 mm[Hg][facility] 01-31-2023 18:00-0500Diastolic blood ccfsqbdu28 mm[Hg][facility]03-08-2023 18:00-0500Heart nvjj598 /min[facility]03-08-2023 18:00-0500Mean blood hgjzakut729 mm[Hg][facility]03-08-2023 18:00-1379YhI4% (BldA) [Mass fraction]99 %[facility]03-08-2023 18:00-0500 Systolic blood mm[Hg][facility] 01-31-2023 17:00-0500Diastolic blood ybpfobje87 mm[Hg][facility]03-08-2023 17:00-0500Mean blood vodmmrpn690 mm[Hg][facility]03-08-2023 17:00-0500Systolic blood pressure 117 mm[Hg][facility]03-08-2023 16:38-0500Heart hgin363 /min[facility]03-08-2023 16:38-0500Mean blood docgchtc832 mm[Hg][facility]03-08-2023 16:38-0500Respiratory rate18 /[facility] 01-31-2023 13:49-0500Body oujvawxjkkb35.88 [degF][facility]03-08-2023 13:49-0500Heart qgjr042 /min[facility]02-04-2023 14:55-0500Body xzhbozbqfli15.88 [degF][facility]02-04-2023 14:55-0500Diastolic blood ubbfxaps01 mm[Hg][facility]02-04-2023 14:55-0500Heart rate84 /min[facility]02-04-2023 14:55-0500Mean blood ycnccnhv639 mm[Hg][facility]02-04-2023 14:55-0500Respiratory rate20 /min[facility]02-04-2023 14:55-6228OnN2% (BldA) [Mass fraction]98 %[facility]02-04-2023 14:55-0500Systolic blood pressure 137 mm[Hg][facility]02-04-2023 14:35-0500Body bpdgolrrafv18.88 [degF][facility]02-04-2023 14:35-0500Diastolic blood mm[Hg][facility]02-04-2023 14:35-0500Heart rate82 /min[facility]02-04-2023 14:35-0500Mean blood nhfjgeyp80 mm[Hg][facility]02-04-2023 14:35-0500Respiratory rate16 /[facility]-04-2023 14:35-0881UqA6% (BldA) [Mass fraction]97 %[facility]02-04-2023 14:35-0500Systolic blood fclbenlf795 mm[Hg][facility]02-04-2023 13:35-0500Body pdtrrqdaieg23.88 [degF][facility]02-04-2023 13:35-0500Diastolic blood ifkslpul25 mm[Hg][facility]02-04-2023 13:35-0500Heart rate80 /[facility]02-04-2023 13:35-0500Mean blood kqbdgeiu60 mm[Hg] [facility]02-04-2023 13:35-0500Respiratory rate 17 /min[facility]02-04-2023 13:35-5530IzW2% (BldA) [Mass fraction]96 %[facility]02-04-2023 13:35-0500Systolic blood edakilxg764 mm[Hg][facility]02-04-2023 13:00-0500Respiratory rate12 /min[facility]02-04-2023 12:55-0500Respiratory rate9 /min[facility]02-04-2023 12:50-0500Respiratory rate10 /[facility]02-04-2023 08:15-0500Body fgjtuourlrl57.24 [degF] [facility]02-04-2023 08:15-0500Heart bmoj158 /min[facility]01-07-2023 13:41-0500Body kfqdpfwqdov38.2 [degF]Kathe Ryder DO Work Phone: 1(027)960-[address] [place], [place] [address]Lemfqs71-40-0790 13:41-0500Diastolic blood ijyzubef61 mm[Hg]Kathe Ryder DO Work Phone: [facility]Upuour76-12-7672 13:41-0500Heart rvck922 /min Kathe Ryder DO Work Phone: 1([phone] HospitalHnizti15-77-3069 13:41-0500Respiratory rate18 /minKathe Ryder DO Work Phone: [facility] HospitalPeqxea34-27-9497 13:41-1347AoZ2% (BldA) [Mass fraction]99 %Kathe Ryder DO Work Phone: [facility] HospitalWftrqu19-47-8502 13:41-0500Systolic blood ylkplicc199 mm[Hg]Kathe Ryder DO Work Phone: [facility] HospitalOfowzv31-68-3968 00:45-0500Body evfuyw114.5 cm Kathe Ryder DO Work Phone: [facility] HospitalIrfrur71-18-3527 00:45-0500Body mass index (BMI) [Ratio]25.61 kg/b7XqscjwxtcKathe Ryder DO Work Phone: [facility] HospitalAjswyv10-00-2185 00:45-0500Body ukydql12.5 kg Kathe Ryder DO Work Phone: [facility] HospitalWmwrgp28-67-5954 22:26-0500Hourly Rounding Fredi KARASIK [address] [place], [place] [address]Comment on above:Result Comment: ensured that all pt belongings are sent with pt. pt has no questions or concerns. report given to EMS. pt stable and no s/s of distress. pt off unit to rcqujwke46-37-9198 22:00-0500Diastolic blood apklaehr08 mm[Hg]Fredi KARASIK [address] [place], [place] 3011601-02-2023 22:00-0500Heart cesm488 /minGregory KARASIK [address] [place], [place] 3011601-02-2023 22:00-0500 Hourly RoundingGregory KARASIK [address] [place], [place] 3011601-02-2023 22:00-0500Mean blood rorghish002 mm[Hg]Fredi KARASIK [address] [place], [place] 3011601-02-2023 22:00-0500 Systolic blood mm[Hg]Fredi KARASIK [address] [place], [place] 3011601-02-2023 21:50-0500Blood Pressure LocationGregory KARASIK [address] [place], [place] 3011601-02-2023 21:50-0500 Diastolic blood tjxbijmn25 mm[Hg]Fredi KARASIK [address] [place], [place] 3011601-02-2023 21:50-0500Heart qetu846 /minGregory KARASIK [address] [place], [place] 3011601-02-2023 21:50-0500 Hourly RoundingGregory KARASIK [facility]01-02-2023 21:50-0500Mean blood dohfwlyi130 mm[Hg]Fredi SCHUMACHERASIK [address] [place], [place] 3011601-02-2023 21:50-0500 Respiratory rate18 /minFredi SCHUMACHERASIK [address] [place], [place] 3011601-02-2023 21:50-3246CmZ9% (BldA) [Mass fraction]98 %Ferdi SCHUMACHERASIK [address] [place], [place] 3011601-02-2023 21:50-0500 Systolic blood mm[Hg]Fredi KARASIK [address] [place], [place] 3011601-02-2023 21:37-0500Blood Pressure LocationGregrosa ABREUK [address] [place], [place] 3011601-02-2023 21:37-0500 Diastolic blood gkmzbaja58 mm[Hg]Fredi SCHUMACHERASIK [address] [place], [place] 3011601-02-2023 21:37-0500Heart tfyv240 /minFredi ABREUK [address] [place], [place] 3011601-02-2023 21:37-0500Mean blood woqczvgp376 mm[Hg]Fredi SCHUMACHERASIK [address] [place], [place] 3011601-02-2023 21:37-1497KiX1% (BldA) [Mass fraction]97 %Fredi SCHUMACHERASIK [address] [place], [place] 3011601-02-2023 21:37-0500 Systolic blood joaxdymk559 mm[Hg]Fredi KARASIK [address] [place], [place] 3011601-02-2023 21:30-0500Blood Pressure LocationFredi SCHUMACHERASIK [address] [place], [place] 3011601-02-2023 21:30-0500Body kmlxxvpixht37.6 [degF]Fredi DORSEY [facility]01-02-2023 19:00-0500Body qvcnctrzhyw06.24 [degF]Fredi DORSEY [facility]01-02-2023 17:15-0500Body kfygsjivhzu89.06 [degF]Fredi DORSEY [facility]01-02-2023 14:02-0500Heart rate99 /minFredi DORSEY [facility]08-19-2022 07:00-0400Body iugytqhrmaj94.6 [degF]Kaylinn Dokken [address]08-19-2022 07:00-0400 Diastolic blood sfohvpbg88 mm[Hg]Kaylinn Dokken [address]08-19-2022 07:00-0400Heart rate80 /minKaylinn Dokken [address] [place], [place] 9681308-19-2022 07:00-0400Mean blood xqmluvms71 mm[Hg]Kaylinn Dokken [address] [place], [place] 968[address]08-19-2022 07:00-0400 Respiratory rate17 /minKaylinn Dokken [address]08-19-2022 07:00-0400 Systolic blood cssujbvx023 mm[Hg]Kaylinn Dokken [address] [place], [place] 9681308-19-2022 06:07-0400Body nymuyttogup68.24 [degF]Kaylinn Dokken [address]08-19-2022 06:07-0400 Diastolic blood rulyzleh06 mm[Hg]Kaylinn Dokken [address] [place], [place] 968[address]08-19-2022 06:07-0400Heart rate90 /minCharlotteylinn Dokken [address]08-19-2022 06:07-0400 Respiratory rate18 /minCharlotteylinn Dokken [address] [place], [place] 968[address]08-19-2022 06:07-3881BqC1% (BldA) [Mass fraction]100 %Kumar Villagomez [address]08-19-2022 06:07-0400 Systolic blood zevlmysv816 mm[Hg]Beatrisn Yulyen [address] [place], [place] 9681308-19-2022 05:30-0400 Hourly RoundingCorey KIESHA [address] [place], [place] [address]Comment on above:Result Comment: Pt discharged per physician orders. Pt ambulates off unit with a steady fogb84-51-6507 05:15-0400Diastolic blood mm[Hg]Nathan KIESHA [address] [place], [place] 3011608-19-2022 05:15-0400Heart trkx993 /minCorey KIESHA [address] [place], [place] 3011608-19-2022 05:15-0400 Hourly RoundingCorey KIESHA [address] [place], [place] 3011608-19-2022 05:15-0400Mean blood mm[Hg]Nathan KIESHA [address] [place], [place] 3011608-19-2022 05:15-0400 Respiratory rate18 /minCorey KIESHA [address] [place], [place] 3011608-19-2022 05:15-0400 Systolic blood gzpvemcb835 mm[Hg]Nathan KIESHA [address] [place], [place] 3011605-24-2022 11:00-0400Body ebpnss450.02 cmCameron Edward Other nort [employer] Other 05-24-2022 11:00-0400Body mass index (BMI) [Ratio] 23.03 kg/n7Qvzwvih [employer] Other [facility] [employer] Other 05-24-2022 11:00-0400Body xyergw43.97 kgCamerojunior Loratty Other [facility] [employer] Other 03-17-2022 11:41-0400Body .48 cmMegan Billow DO Work Phone: [phone]-ZXOTI[address] Work Phone: [phone] 11:41-0400Body mass index (BMI) [Ratio] 24.51 kg/t8Uplqo Billow DO Work Phone: WA-VHBUW[address] Work Phone: [phone] 11:41-0400Body surface area Derived from formula1.61 y3Kybrk Billow DO Work Phone: RZ-XCKUP[address] Work Phone: [phone] 11:41-0400Body .78 kgMegan Billow DO Work Phone: ID-TDIBQ[facility] Work Phone: 1([phone] 11:41-0400Diastolic blood phclipal41 mm[Hg] Charlene Billow DO Work Phone: XS-ZMLWR[address] Work Phone: [phone] 11:41-0400Systolic blood zhbnpjuw934 mm[Hg] Charlene Billow DO Work Phone: QY-SMMMC[facility] [address] Work Phone: [phone] 11:41-23104 1Megan Billow DO Work Phone: SG-TAHJO[facility] [address] Work Phone: Comment on above:RTTGOWBASvmaGsqdq52-74-7780 14:53-0400Body .48 cmMegan Billow DO Work Phone: BC-ZIJJR[facility] [address] Work Phone: [phone] 14:53-0400Body mass index (BMI) [Ratio] 21.77 kg/w6Amomk Billow DO Work Phone: JA-IEDEG[facility] [address] Work Phone: [phone] 14:53-0400Body surface area Derived from formula1.53 v7Uhvwp Billow DO Work Phone: ZI-FLUPK[facility] [address] Work Phone: [phone] 14:53-0400Body zshqze58.98 kgMegan Billow DO Work Phone: QW-KORJY[facility] [address] Work Phone: [phone] 14:53-0400Diastolic blood fqynmzvr25 mm[Hg] Charlene Billow DO Work Phone: GW-EYYGG[facility] [address] Work Phone: [phone] 14:53-0400Heart jmjh118 /minMegan Billow DO Work Phone: UT-FNWRO[facility] [address] Work Phone: [phone] 14:53-0400Systolic blood gyngzrvs714 mm[Hg] Charlene Billow DO Work Phone: QO-PGJVS[facility] [address] Work Phone: [phone] 14:53-31268 1Megan Billow DO Work Phone: XP-FHPCT[facility] [address] Work Phone: Comment on above:GRAVPARAPainScale Encounters Encounter DateEncounter TypeCare ProviderFacilityStart: 10-06-2025 End: 36-75-0581Wvcfhz outpatient visit 25 minutesColleen E Matthias CLAYTON Work Phone: [phone]-Xotvb Medicine at [facility] Comment on above:Insulin controlled gestational diabetes mellitus (GDM) in third trimester (Primary Dx); Essential hypertension affecting in third trimesterStart: 10-06-2025 End: 03-24-9298waxdbivgtfDFZMGQD E MATTHIASProMedica Parkwood Hospitaltart: 10-05-2025 End: 43-25-1520Ibytvrtwe encounterAnjana Davalos RNMaternal- [facility] at [facility]art: 10-03-2025 End: 62-38-1900Ofnvzykjn Result EncounterSteph Keane NP Work Phone: noms External Department UnsolicitedStart: 10-03-2025 End: 23-28-9635Swdxyvqhf Result EncounterSteph Keane NP Work Phone: noms External Department UnsolicitedStart: 09-30-2025 End: 68-99-0355Zhmvagbh flow sheetCorey Kiesha DO Work Phone: noms Patti OBGYNComment on above:Third trimester ([facility]); 31 weeks gestation of ([facility]); Pre-eclampsia in third trimester ([facility])Start: 09-30-2025 End: 75-64-6243tnqbyfueznZOEFJ FAZIONot AvailableStart: 09-30-2025 End: 94-73-1920Dnyymb flowsheetCorey Kiesha DO Work Phone: noMS [facility] OBGYNStart: 09-30-2025 End: 73-09-5714Tabznu flowsheetCorey Kiesha DO Work Phone: NOMS Patti OBGYNStart: 09-28-2025 End: 67-54-0155Ornspc OnlyChivo Springer PA-C Work Phone: [phone]-Ksmfu Medicine at [facility] Comment on above:Essential hypertension affecting in third trimester Start: 09-26-2025 End: 69-28-6376Oiqdxwwlk Result EncounterSteph Keane NP Work Phone: noms External Department UnsolicitedStart: 09-26-2025 End: 10-01-1965Apixphshj Result EncounterSteph Keane NP Work Phone: noms External Department UnsolicitedStart: 09-21-2025 End: 02-46-2170qcbrjrxgahHykrain E Lavoy PA-C Work Phone: [phone]-Qwqhz Medicine at [facility] Comment on above:Insulin controlled gestational diabetes mellitus (GDM) in third trimester (Primary Dx); Essential hypertension affecting in third trimesterStart: 09-21-2025 End: 55-31-9133Lrpvwxzdi encounterVerito EDOUARD Work Phone: [phone]-Pttmo Medicine at [facility] Start: 09-19-2025 End: 55-81-1730Fyoptqfwz Result EncounterSteph Keane NP Work Phone: noms External Department UnsolicitedStart: 09-19-2025 End: 36-12-4229Jlaggeaah Result EncounterSteph Keane NP Work Phone: noms External Department UnsolicitedStart: 09-17-2025 End: 13-86-9740Zozymd Breanna CAGE Work Phone: [phone]-Bsnce Medicine at [facility] Comment on above:Essential hypertension affecting in third trimester Start: 09-16-2025 End: 43-65-0416iydbdueichHCXZZ FAZIONot AvailableStart: 09-16-2025 End: 29-00-3989Jwvelqkx flow sheetCorey Kiesha DO Work Phone: noms Patti OBGYNComment on above:29 weeks gestation of ([facility]); Third trimester ([facility]); Hypertension affecting , antepartum ([facility]); Gestational diabetes mellitus (GDM), antepartum, gestational diabetes method of control unspecified([facility])Start: 09-16-2025 End: 89-70-2350Xeqiru flowsheetCorey Kiesha DO Work Phone: [facility] Armstrong OBGYNStart: 09-16-2025 End: 90-51-9083Jpvrgz flowsheetCorey Kiesha DO Work Phone: [facility] Armstrong OBGYNStart: 09-16-2025 End: 70-53-7567Xjvcqoalc Nirmal Harris [facility]: 09-15-2025 End: 49-41-8550IikbejMika Springer PA-C Work Phone: [phone]-Mbihm Medicine at [facility] Comment on above:Essential hypertension affecting in third trimester Start: 09-10-2025 End: 47-36-0406Grfsbu outpatient visit 25 minutesMadhuri Monroy MD Work Phone: [facility] Medicine [place]Comment on above: 28 weeks gestation of (Primary Dx); Insulin controlled gestational diabetes mellitus (GDM) in second trimester; Essential hypertension affecting in third trimesterStart: 09-10-2025 End: 43-10-3986grceyxupoaIJLQVLGS P DOC[facility]VAOhio[facility] Start: 09-04-2025 End: 18-70-0185Mjmgzu consultation new/estab patient 60 Annalee Denise MD Work Phone: [phone]-Mrlgl Medicine at [facility] Comment on above:Diet controlled gestational diabetes mellitus (GDM) in second trimester (Primary Dx); Essential hypertension affecting in third trimesterStart: 09-04-2025 End: 21-05-2909nbowkhupmiYBDEGINona McRegency Hospital Toledotart: 09-03-2025 End: 50-20-1842Egjvunvr flow sheetSteph Keane HOUSE STEWARD/STEWARDESS Work Phone: NONV Patti OBGYNComment on above:Hypertension affecting , antepartum ([facility]) (Primary Dx); 27 weeks gestation of ([facility]); Second trimester ([facility])Start: 09-03-2025 End: 85-65-3932dsdpbuzmjxYVHDGTOI EBERLYNot AvailableStart: 09-03-2025 End: 55-08-4086Swjkhr flowsheetSteph Keane HOUSE STEWARD/STEWARDESS Work Phone: N[facility]S Salix OBGYNStart: 09-03-2025 End: 63-29-4018Nqmpodavb Result EncounterCorey Kiesha DO Work Phone: noms External Department UnsolicitedStart: 09-03-2025 End: 43-16-4114Wgrkfcbcr Result EncounterCorey Kiesha DO Work Phone: noms External Department UnsolicitedStart: 09-01-2025 End: 47-98-3397Csrruuahk encounterCha Harris RNMaternal- Medicine at [facility]ustart: 08-29-2025 End: 13-47-9121Xnfebgqwn Result EncounterSteph Keane NP Work Phone: noms External Department UnsolicitedStart: 08-29-2025 End: 14-80-0159Hcaujobqp Result EncounterSteph Keane NP Work Phone: noms External Department UnsolicitedStart: 08-27-2025 End: 97-21-3494truuixcnefWIDRBJPU EBERLYNot AvailableStart: 08-27-2025 End: 86-01-4519Evxwigar flow sheetSteph Keane HOUSE STEWARD/STEWARDESS Work Phone: NOMS Patti OBGYNComment on above:26 weeks gestation of ([facility]); Second trimester ([facility]); induced hypertension, antepartum ([facility]); Gestational diabetes mellitus (GDM) in second trimester, gestational diabetes method of control unspecified ([facility])Start: 08-27-2025 End: 24-85-2599Lkwpef flowsheetSteph Elsa HOUSE STEWARD/STEWARDESS Work Phone: NOAD Patti OBGYNStart: 08-27-2025 End: 67-09-8626Tjtgjs flowsheetSteph Keane HOUSE STEWARD/STEWARDESS Work Phone: NOMR Patti OBGYNStart: 08-27-2025 End: 04-04-5594Qqceyxkxc Result EncounterSteph Keane HOUSE STEWARD/STEWARDESS Work Phone: noms External Department UnsolicitedStart: 08-25-2025 End: 96-95-5268Cmmcpofgs Result EncounterGeneric External Data ProviderNOMS External Department UnsolicitedStart: 08-25-2025 End: 04-15-5863Sjcghesnf Result EncounterGeneric External Data ProviderNOMS External Department UnsolicitedStart: 08-24-2025 End: 12-36-4044zeegnkwmeeAfmtao M Frey RN Work Phone: [phone]-Doukm Medicine at [facility] Comment on above:Gestational diabetes mellitus (GDM) in second trimester, gestational diabetes method of control unspecifiedStart: 08-21-2025 End: 89-40-1092Srymr abstractingScanning Provider ExternalMaternal- Medicine at [facility]ustart: 08-18-2025 End: 68-85-6455Hqddc Aura Monroy MD Work Phone: [phone]-Udrgd Medicine at [facility] Start: 08-15-2025 End: 69-73-3103pqqjjisofhIBQECFEK EBERLYFacility:FTMCStart: 08-12-2025 End: 67-25-1754Plqklccc flow sheetCorey Kiesha DO Work Phone: noms Salix OBGYNComment on above:24 weeks gestation of ([facility]); Second trimester ([facility]); Elevated glucose tolerance testStart: 08-12-2025 End: 13-03-7590ofwwbqaxobHCHNT FAZIONot AvailableStart: 08-12-2025 End: 82-20-5340jozmzvlpqzSvibt Bryant MANISHAOFacility:FTMCStart: 08-01-2025 End: 84-96-7776uswjsafwiqW KENNETH BELTRANFacility:FTMCStart: 07-30-2025 End: 01-79-9928Pdehifx encounter statusGemartha Hurtado Ruby DO Work Phone: [facility] Work Phone: Start: 07-30-2025 End: 48-37-1406Ondanjcd preventive med est patient 18-39 yrsGeorsherita Hurtado Charlottecarol DO Work Phone: noms [facility] 230Comment on above: Wellness examination (Primary Dx); Hypertension, unspecified type ; Lipid screeningStart: 07-30-2025 End: 69-14-3125pmbxinpzvtAYNMDA R KAFTANNot AvailableStart: 07-30-2025 End: 63-86-2285Okznzu flowsheetEliceo Hurtado Ruby DO Work Phone: noms [facility] 230Start: 07-30-2025 End: 33-00-0937Upaler flowsreynoldEliceo Hurtado Ruby DO Work Phone: noms [facility] 230Start: 07-15-2025 End: 03-10-4967Nyfczldo flow sheetCorey Kiesha DO Work Phone: NOVW Salix OBGYNComment on above:20 weeks gestation of ([facility]); Second trimester ([facility]); Diabetes mellitus screeningStart: 07-15-2025 End: 91-75-0617rtkfgxyhzpRCDJJ FAZIONot AvailableStart: 07-15-2025 End: 97-77-0221Tzfrmlhzf Result EncounterCorey Kiesha DO Work Phone: NOLV External Department UnsolicitedStart: 07-15-2025 End: 21-20-4807Fxlgvflki Result EncounterCorey Kiesha DO Work Phone: NOMS External Department UnsolicitedStart: 06-22-2025 End: 60-88-9570Tmlastyn flow sheetCorey Kiesha DO Work Phone: NOYU Salix OBGYNComment on above:Sinusitis, unspecified chronicity, unspecified location (Primary Dx); Second trimester ([facility]); 17 weeks gestation of ([facility]); Screening, , for anatomic survey ([facility])Start: 06-22-2025 End: 42-42-5429fxmbwgwhhhKHXLM FAZIONot AvailableStart: 06-22-2025 End: 59-28-7595Qlpsks flowsheetCorey Kiesha DO Work Phone: NOEL Salix OBGYNStart: 06-22-2025 End: 84-52-1008Tidcyy flowsheetCorey Kiesha DO Work Phone: NOPT Patti OBGYNStart: 06-22-2025 End: 85-45-4198Itnfhirs Result EncounterCorey Kiesha DO Work Phone: NODW External Department UnsolicitedStart: 05-25-2025 End: 43-91-4445omsyhiatnlJPMUF FAZIONot AvailableStart: 05-25-2025 End: 74-82-3871Cstubqyc flow sheetCorey Kiesha DO Work Phone: NONJ BCP OBComment on above:Nonintractable episodic headache, unspecified headache type (Primary Dx); Second trimester ([facility]); 13 weeks gestation of ([facility])Start: 05-25-2025 End: 76-81-7928Mvlzhc flowsheetCorey Kiesha DO Work Phone: NOMS BCP OBStart: 05-25-2025 End: 77-98-8492Dxmuow flowsheetCorey Kiesha DO Work Phone: NOMS BCP OBStart: 05-04-2025 End: 17-87-4317Hnhifrmmb Result EncounterCorey Kiesha DO Work Phone: NOMS External Department UnsolicitedStart: 05-04-2025 End: 62-96-9310Adhfdxaru Result EncounterCorey Kiesha DO Work Phone: noms External Department UnsolicitedStart: 05-01-2025 End: 32-28-0654Daudxhzxn Result EncounterCorey Kiesha DO Work Phone: noMS External Department UnsolicitedStart: 05-01-2025 End: 80-32-1619Hcosxpouk Result EncounterCorey Kiesha DO Work Phone: noms External Department UnsolicitedStart: 05-01-2025 End: 56-73-3400uuezgcyfaePZCNHP Jose Angel AvailableStart: 05-01-2025 End: 41-74-9294Lpyfbu outpatient visit 5 minutesNoms Bcp Ob Kiesha NurseNOMS BCP OBComment on above:GA: 3x7zJwuuu: 03-13-2025 End: 40-91-0828jcokeomxhuXgzft R FAZIOFacility:FTMCStart: 03-13-2025 End: 97-95-4998Hjrqdkk encounter procedureCorey R KIESHA [facility] Start: 02-02-2025 End: 79-08-2992Qojrpid encounter procedureDenyn Rodríguez MD Work Phone: [facility] [place] Work Phone: Start: 02-02-2025 End: 73-17-7054amtreycujmIwkhi Baxter MD Work Phone: [facility] Work Phone: Start: 01-22-2025 End: 15-26-7723sylpuzejldSempg R FAZIOFacility:FTMCStart: 01-22-2025 End: 78-68-2431Hdptdpi encounter procedureCorey R KIESHA [facility] Start: 01-19-2025 End: 53-27-3769Dowppa outpatient visit 15 minutesCorey Kiesha DO Work Phone: noms BCP OBComment on above:Pain in female genitalia on intercourse; EndometriosisStart: 01-19-2025 End: 16-84-4219slpynubrufHYFBB FAZIONot AvailableStart: 01-19-2025 End: 75-17-4400Avwmov flowsheetCorey Kiesha DO Work Phone: NOMS BCP OBStart: 01-19-2025 End: 39-37-0409Npcvyi flowsheetCorey Kiesha DO Work Phone: NOMS BCP OBStart: 12-30-2024 End: 77-14-6437yqnopdgeufWPNYTB R TREYANNot AvailableStart: 12-30-2024 End: 12-92-0925Almbjb outpatient visit 15 minutesGeorge R Charlottecarol DO Work Phone: NOPS [facility] 230Comment on above:Hypertension, unspecified type (CMS/HCC) (Primary Dx); Paroxysmal tachycardia, unspecified (CMS/HCC); Chronic right shoulder pain; Scapular dyskinesisStart: 08-18-2024 End: 97-16-0389Xmslyz flowsheetCorey Kiesha DO Work Phone: noMS BCP OBStart: 08-18-2024 End: 87-39-7924Wvoowh flowsheetCorey Kiesha DO Work Phone: noMS BCP OBStart: 08-18-2024 End: 22-81-4695Csypnvade Result EncounterCorey Kiesha DO Work Phone: noms External Department UnsolicitedStart: 08-18-2024 End: 38-08-4748Lmxsrgw encounter procedureCorey Kiesha DO Work Phone: [facility] Work Phone: Start: 08-18-2024 End: 04-06-9587Yqbuikcc preventive med est patient 18-39 yrsCorey Kiesha DO Work Phone: NOMS BCP OBComment on above:Well woman exam with routine gynecological examStart: 07-22-2024 End: 68-69-7030Blwell flowsheetCorey Kiesha DO Work Phone: NOMS BCP OBStart: 07-22-2024 End: 39-47-7038Ccwwhg flowsheetCorey Kiesha DO Work Phone: NOOX BCP OBStart: 07-22-2024 End: 09-89-0232Cwcewi outpatient visit 15 minutesCorey Kiesha DO Work Phone: NOMS BCP OBComment on above:Dysmenorrhea, unspecified Start: 76-38-3567Joklqzntc encounterMegan Billow DO Work Phone: [facility] Hospitaltart: 25-02-9797Pwggsstxp encounterMegan Billow DO Work Phone: [facility] HospitalComment on above:Surgery CancelledStart: 02-13-2024 End: 58-25-0150Cvmztgxnc Result EncounterCorey Kiesha DO Work Phone: NOLP External Department UnsolicitedStart: 02-13-2024 End: 43-64-4381Pndaxbjgb Result EncounterCorey Kiesha DO Work Phone: noms External Department UnsolicitedStart: 01-15-2024 End: 67-35-3687Xjnsorplp Result EncounterCorey Kiesha DO Work Phone: noms External Department UnsolicitedStart: 01-15-2024 End: 37-48-8312Drubnbsoz Result EncounterCorey Kiesha DO Work Phone: noms External Department UnsolicitedStart: 01-10-2024 End: 31-15-1594Ynnidb outpatient visit 15 minutesCorey Kiesha DO Work Phone: NOMS BCP OBComment on above:Menorrhagia with regular cycle; Pelvic pain in female; Uses controlStart: 73-80-7227RkvsbdRyfab Billow DO Work Phone: [facility] HospitalComment on above:Refill Request Start: 95-88-2756cbvcccjdocPznwg Billow DO Work Phone: Obstetrics/GynecologyComment on above:painStart: 12-10-2023 End: 81-05-4377kwqzsuwuzlLOCII BILLOWFacility:[facility] Centertart: 66-82-8602cntsrnqazwUeksp Billow DO Work Phone: REM PIRES MCStart: 60-82-7580Tnriwqt encounter procedureMegan Billow DO Work Phone: Obstetrics/GynecologyComment on above:office visit Start: 09-12-2023 End: 35-55-1981Dhgloobkj department patient Berny Loco [facility] Start: 42-98-0326Shphso pelvic examinationMegan Billow DO Work Phone: Obstetrics/GynecologyComment on above:Pelvic pain in female (Primary Dx)Start: 91-33-0088ezrwnijkoqEhvln Billow DO Work Phone: Obstetrics/GynecologyComment on above:painful periods Start: 08-24-2023 End: 64-09-6527Nmmcoi pelvic examinationErin Vicker WORK COUNSELOR.PATTERN CARRIER Work Phone: GynecologyComment on above:High-tone pelvic floor dysfunction (Primary Dx); Chronic pelvic pain in femaleStart: 08-24-2023 End: 87-11-5169Mzftmegqzmgx consultation with Kelton Downs APRN.PATTERN CARRIER Work Phone: cCF [facility] MAINStart: 08-24-2023 End: 32-45-6665qwqafrcmpfNQIG REAPERFacility:[facility] HospitalStart: 34-30-7230itfdmzlmcwUxscp Billow DO Work Phone: Obstetrics/GynecologyComment on above:painful period Start: 69-56-4861Kevonnuly encounterMegan Billow DO Work Phone: GynecologyComment on above:Insurance Authorization (Orilissa)Start: 07-16-2023 End: 69-14-4576evkhkqhetbAWKMC BILLOWFacility:[facility] Centertart: 06-12-2023 End: 98-24-5879usandrmudcAMXJY BILLOWFacility:[facility] Centertart: 06-12-2023 End: 11-15-5686Gyncqkizll hospital visit by physicianandra [facility] Suki (I-Stat/1.5t) RadiologyComment on above:Pelvic and perineal pain [R10.2]Start: 05-17-2023 End: 41-74-8593Ywaxdg pelvic examinationMegan Billow DO Work Phone: Obstetrics/GynecologyComment on above:Endometriosis (Primary Dx); Pelvic and perineal painStart: 05-17-2023 End: 79-81-8868Ibtkjfvzckdo consultation with kikaCharlene Rodriguez DO Work Phone: [facility]ITALtart: 05-17-2023 End: 83-94-0709pemrymhjyvGYLQR ALAN BAXTERFacility:[facility] Start: 51-04-9599Rxzijpgiw encounterMekevin Billfanny DO Work Phone: GynecologyComment on above:Vaginal BleedingStart: 05-01-2023 End: 19-72-1193ejdnvbxogvXZXWPYang Stanleycility:[facility] Start: 05-01-2023 End: 57-66-0433Cfltoxm encounter Lisa Downs APRN.PATTERN CARRIER Work Phone: GynecologyComment on above:Chronic pelvic pain in female (Primary Dx); Constipation, unspecified constipation type; High-tone pelvic floor dysfunction; Diastasis of rectus abdominis; Dysmenorrhea; Other specified dyspareuniaStart: 77-39-2908azjrycfjssKbwep Billow DO Work Phone: Obstetrics/GynecologyComment on above:painfulStart: 01-31-2023 End: 86-17-7269Majqbyyxj department patient visitAstrit Phuc [facility] Start: 12-30-2022 End: 29-23-6783Nspqczx encounter procedureAstrit Phuc [facility] Start: 12-05-2022 End: 97-59-3982vsyqqsslmbOIDWSt. Anne Hospital SHSStart: 12-05-2022 End: 01-27-8887Aewxtn outpatient visit 15 minutesGin Leonorsrinath DAY Work Phone: [facility] HospitalComment on above:Pre- eclampsia, severe, delivered (Primary Dx)Start: 11-28-2022 End: 96-46-9632Oaebiuufcm and management of inpatientJay HospitalStart: 11-28-2022 End: 06-19-0708Itwegssurz and management of inpatientGood [facility]aritan Hospital Work Phone: [facility] POSTPARTUMComment on above:Preeclampsia, severe, third trimester (Primary Dx)Start: 11-28-2022 End: 92-68-3080Hpd-admission assessmentGregrosa DORSEY [facility] Start: 11-27-2022 End: 63-14-5540BO TriageGregrosa DORSEY [facility] Start: 07-14-2022 End: 76-61-7447Posfilmds department patient visitCharlotteshayjunior Villagomez [facility] Start: 07-14-2022 End: 00-39-0246WR TriageNathan POP [facility] Start: 04-25-2022 End: 83-22-3837Qndximv encounter procedureCAMERON DITTY [facility] Start: 04-18-2022 End: 68-55-9658eaitljvpegSdydhfp Ditty Other [place] [employer] Other Start: 91-86-3428Aazspbw encounter procedureCamdorene CarrilloyFPG GastroenterologyStart: 58-38-3006Meqzth outpatient visit 15 minutes Charlene Rodriguez DO Work Phone: [phone]-FULZD-[address] Work Phone: Start: 09-29-2021 End: 34-11-9538nwwoldkapkHVYLG ROWENA [facility] Centerpe[facility] HospitalStart: 09-29-2021 End: 27-46-7745gnmwllsbgzDGWLW ROWENAMercy Health St. [facility] HospitalStart: 50-75-0837HIOYUEjbis Billow DO Work Phone: [phone]-FBDHQ-[address] Work Phone: Start: 69-56-2406OIMLKQQADL, Provider: Charlene Rodriguez, Status: Pen, Time: 2:45 Ina Chau MD Work Phone: [phone]-Vfbpaet-[place] Work Phone: Start: 17-82-8640Fefzd Oswaldo Chau MD Work Phone: [phone]-Prndqlt-[place] Work Phone: Procedures DateProcedureProcedure DetailPerforming ClinicianStart: 25-58-5742UW OB BPP W NON-STRESSKristina Elsa HOUSE STEWARD/STEWARDESS Work Phone: Start: 52-80-9180Dpubq dip stick/tablet rgnt non-auto w/o micrscpCorey Kiesha DO Work Phone: Start: 21-92-3856LX OB BPP W NON-STRESSKristina Elsa HOUSE STEWARD/STEWARDESS Work Phone: Start: 25-53-2571VK OB BPP W NON-STRESSKristina Elsa HOUSE STEWARD/STEWARDESS Work Phone: Start: 08-08-3538Xnxfz dip stick/tablet rgnt non-auto w/o micrscpCorey Kiesha DO Work Phone: Start: 18-03-3466BXN BUNCorey Kiesha DO Work Phone: Start: 21-59-0648ZAI URIC ACIDCorey Kiesha DO Work Phone: Start: 79-15-5442UYJ ALTCorey Kiesha DO Work Phone: Start: 85-25-9129XGN ASTCorey Kiesha DO Work Phone: Start: 00-00-2346IOB CREATININECorey Kiesha DO Work Phone: Start: 00-92-0182WZW URINE T PROTEIN CREAT RATIOCorey Kiesha DO Work Phone: Start: 73-44-1821Inaux dip stick/tablet rgnt non-auto w/o micrscpKristina Elsa HOUSE STEWARD/STEWARDESS Work Phone: Start: 54-13-2252WHU TOTAL PROTEIN 24 HOUR URINE Generic External Data ProviderStart: 70-55-2057WI OB BPP W NON-STRESS Steph Elsa HOUSE STEWARD/STEWARDESS Work Phone: Start: 73-88-0984JOY URINE T PROTEIN CREAT RATIO Generic External Data ProviderStart: 21-53-0955RHO CBC WITH AUTO DIFFGeneric External Data ProviderStart: 54-67-2580Tsjdy dip stick/tablet rgnt non-auto w/o micrscpKristina Elsa HOUSE STEWARD/STEWARDESS Work Phone: Start: 95-07-6913Qibsnrwm identified in Urine by CultureGeneric External Data ProviderStart: 73-17-2459Duyfwtb quantitative blood xcpt reagent stripNot In System Ref ProvStart: 69-91-0607DLCDTC HOUR GLUCOSE TOLERANCE 100 GM LOADNot In System Ref ProvStart: 20-03-0326Ruzvg dip stick/tablet rgnt non-auto w/o micrscpCorey Kiesha DO Work Phone: Start: 81-41-9720QJR 1H POST 50G LOADNot In System Ref ProvStart: 70-17-4703TSG, SERUM, OPEN SPINA BIFIDACorey Kiesha DO Work Phone: Start: 83-45-8482Tpdxq dip stick/tablet rgnt non-auto w/o micrscpCorey Kiesha DO Work Phone: Start: 91-41-7514SRUODLLTQ VAGINITIS (HTRX)Nathan Kiesha DO Work Phone: Start: 47-11-1279Zgoxc dip stick/tablet rgnt non-auto w/o micrscpCorey Kiesha DO Work Phone: Start: 07-77-2560Mbgwk dip stick/tablet rgnt non-auto w/o micrscpCorey Kiesha DO Work Phone: Start: 04-78-6581Pznvgizt screenMadhuri Monroy MD Work Phone: Start: 97-83-9326Nbau scrn 1+ class nonchromoNot In System Ref ProvStart: 47-26-7440Saxzxranlv glycosylated q4eLxhfo R Kiesha DO Work Phone: Start: 16-54-8550Tmouarqvh c antibodyNot In System Ref ProvStart: 53-65-2896JBE 1&2 AB/AG SCREEN (P24 AG)Not In System Ref ProvStart: 30-13-2969Bmaq ia hepatitis b surface antigenNot In System Ref ProvStart: 33-09-4607RQOG AND SCREENNot In System Ref ProvStart: 00-79-8741GNT TESTCorey Kiesha DO Work Phone: Start: 49-29-7075Aognw dip stick/tablet rgnt non-auto w/o micrscpCorey Kiesha DO Work Phone: Start: 03-67-1601PD OB TRANSVAGINALCorey Kiesha DO Work Phone: Start: 06-73-2720XNH,APTIMA HPV,AGE GDLNCorey Kiesha DO Work Phone: Start: 38-36-3633Chajcgumfau observation [Identifier] in Cervix by Cyto stainCorey Kiesha DO Work Phone: Start: 75-32-8967DBM 12-LEADCorey Kiesha DO Work Phone: Start: 57-62-4064EB PELVIS W/ TRANSVAGINALCorey Kiesha DO Work Phone: Start: 72-61-9841Vbtd cerv/vag auto thin layer prep mnl screenCorey Kiesha DO Work Phone: Start: 35-17-0227Eah pelvis w/o & w/contrast material Charlene Billow DO Work Phone: Start: 22-67-2123Ororg count platelet automatedMichael O'Cormier WORK COUNSELOR - WEB ENGINEER Work Phone: Start: 67-31-3777Yrqvm count platelet automatedCassie Constnatino MD Work Phone: Start: 39-96-5719Zhzbl streptococcus group b amplified probe tqCassie Constantino MD Work Phone: Start: 43-20-5978GLD and Rh group [Type] in Blood by Confirmatory Carmine Constantino MD Work Phone: Start: 44-84-7320Bpgub typing serologic Cait Constantino MD Work Phone: Start: 00-38-1519Bdxfbripuxxvh metabolic panelCassie Constantino MD Work Phone: Start: 24-46-5395Kwelcdsq hiv-1&hiv-2 single result Megadyne [id number]: 05-50-9188Lpyb ia hepatitis b surface antigenMegaalexis [id number]: 57-54-5267HdmtfbkkcnEGDKWHK EDWARD Start: 08-30-2020 End: 79-99-0220Uksgoeat screenComment on above:Performed By: #### T+S #### [facility] [address] [place], [place] [address]Dggng Comment: TEST TYPE + SCREEN WAS CANCELLED, 08/30/2020 13:37 JOP.Performed By: #### T+S #### [facility] [address] [place], [place] [address]Dkmmv: 97-54-2852FBIXZ SHOULDER OPEN DISTAL CLAVICLE EXCISION 1CAMERON LOVEShopsense Comment on above:RIGHT SHOULDER OPEN DISTAL CLAVICLE EXCISIONRIGHT SHOULDER OPEN DISTAL CLAVICLE EXCISIONAppendectomyCAMERON LOVEShopsense betamethasone (substance)Fredi WILLIAN comment on above:Dose #1: 11/27/22ColonoscopyCAMERON EDWARD Endoscope, device (physical object)[place] LaparoscopyTeri Chau MD Work Phone: Plan of Treatment DateCare ActivityDetailAuthorStart: 02-73-5152Csmxkl Vaccines (1 of 2)Zoster Vaccines (1 of 2)[facility] HealthStart: 16-72-8201Lghgdaftp for malignant neoplasm of cervixNOMS HealthcareStart: 50-98-1070Ccqsusgpv for malignant neoplasm of cervixPap SmearNOMS HealthcareStart: 28-72-6907Nqodg BMI ScreeningAdult BMI ScreeningProBlanchard Valley Health System [facility] SystemStart: 06-55-0402Vhurtww ScreeningTobacco ScreeningProBlanchard Valley Health System [facility] SystemStart: 98-66-4741Honop BMI ScreeningAdult BMI ScreeningProBlanchard Valley Health System [facility] SystemStart: 40-43-3147Jykku BMI ScreeningAdult BMI ScreeningProMedica Health SystemStart: 11-03-2025 End: 20-56-5290Gllbljq encounter iikykmeso87/09/2025 2:30 PM EST Office Visit M[facility]- [facility] at [facility] [address] [place] [id number] Chivo Springer PA-C [address] CITYK[address] [address] [facility] 10[facility]14-2025 End: 52-49-3612Chvwaqs encounter itlxayxkr31/19/2025 3:30 PM EST Routine NOMS Patti YOUNGN [address] [facility] [address] [place], [id number] Nathan Pop DO [address] [facility] [place] [address] NOMShalonda IYERGYNStart: 10-08-2025 End: 24-92-7612Vrfcnoq encounter edadwysev63/13/2025 8:00 AM EST Appointment [facility] [employer] [address] [facility] [address] [place] [address] [phone] Medicine [facility]bStart: 10-06-2025 End: 46-30-0383Sxheyrqelumm consultation with iboeuvi8410/06/2025 2:30 PM EST Telemedicine Maternal- Medicine at [facility] [address] [place] [address] Chivo Springer PA-C [address] [facility] [address] [address] [facility]: 10-05-2025 End: 36-68-8542Ftaqpub encounter ztpfjswuz40/10/2025 3:00 PM EST Office Visit Maternal- Medicine at [facility] [address] [place] [address] Chivo Springer PA-C [address] [facility] [address] [address] [facility]: 10-05-2025 End: 34-59-4049Hbpcueyfjbed consultation with miykaaj1110/05/2025 3:00 PM EST Telemedicine Maternal- Medicine at [facility] [address] [place] [address] Chivo Springer PA-C [address] [address] [facility]: 08-28-1964ZAC ( or age 60+ yrs) (1 - Risk 1-dose series)RSV ( or age 60+ yrs) (1 - Risk 1-dose series)[facility]: 09-30-2025 End: 03-93-3121Mnvybcp encounter procedureNOMS Patti YOUNGNComment on above: ArrivedStart: 09-16-2025 End: 39-63-3394RU biophysical profile w non stress testUS biophysical profile w non stress test Imaging Routine Gestational diabetes mellitus (GDM),antepartum, gestational diabetes method of control unspecified ([facility]) Expected: 09/16/2025, Expires: 09/16/2026NOMS HealthcareComment on above:Expected: 09/16/2025, Expires: 09/16/2026Start: 09-15-2025 End: 20-05-3415Iqhunuz encounter rgahzmysp79/21/2025 2:50 PM EDT Routine NOMShalonda MOODY [address] [place], [id number] Zenobia Gutierrez PA [address] [place] [address] NOMShalonda Izaguirrert: 09-10-2025 End: 91-89-4240Zjuvievipmtc consultation with piyeovb2809/10/2025 11:00 AM EDT Telemedicine [facility] [employer] [address] [phone] Madhuri Monroy MD [address] [facility] LAN, [address] [place] [address] [facility]bStart: 09-10-2025 End: 98-09-4614Eveknxd encounter ofwgaypxd38/16/2025 9:45 AM EDT Appointment [facility] [employer] [address] [phone] [phone] [facility]: 09-07-2025 End: 10-44-3977Qvnxosu encounter procedureNOMS BCP OBStart: 09-04-2025 End: 22-63-9883Lswgrfe encounter ewkdkwrol14/10/2025 3:00 PM EDT Office Visit Maternal- Medicine at [facility] [address] [facility] [place] [address] Mine Denise MD [address] [facility], [address] [place] [address] [facility]: 09-03-2025 End: 68-03-4786Dmatpux encounter procedureNOMS [place] OBGYNComment on above: [facility] CenterStart: 08-27-2025 End: 21-43-9933Ljoetto encounter bbmeigsvf18/02/2025 3:20 PM EDT Routine NOMShalonda [place] OBGYN [address] [place], [phone] Steph Keane NP [address] [place] [address] NOMS Patti Izaguirrert: 08-27-2025 End: 65-00-8272Vwyfhpz aminotransferase [Enzymatic activity/volume] in Serum or PlasmaALT Lab Routine induced hypertension, antepartum ([facility]) Expected: 08/27/2025 (Approximate), Expires: 08/27/2026[facility] HealthcareComment on above:Expected: 08/27/2025 (Approximate), Expires: 08/27/2026Start: 08-27-2025 End: 24-54-3732Lvkpofkdt aminotransferase [Enzymatic activity/volume] in Serum or PlasmaAST Lab Routine induced hypertension, antepartum ([facility]-HCC) Expected: 08/27/2025 (Approximate), Expires: 08/27/2026[facility] HealthcareComment on above:Expected: 08/27/2025 (Approximate), Expires: 08/27/2026Start: 08-27-2025 End: 28-82-8828HPZ W Auto Differential panel - BloodCBC and differential Lab Routine induced hypertension, antepartum ([facility]-HCC) Expected: 12/2024 (Approximate), Expires: 08/27/2026[facility] HealthcareComment on above: Expected: 08/27/2025 (Approximate), Expires: 08/27/2026art: 08-27-2025 End: 53-75-1440Szaaehygxt [Mass/volume] in Serum or PlasmaCreatinine Lab Routine induced hypertension, antepartum ([facility]-HCC) Expected: 08/27/2025 (Ap proximate), Expires: 08/27/2026[facility] Healthcare Work Phone: comment on above:Expected: 08/27/2025 (Approximate), Expires: 08/27/2026Start: 08-27-2025 End: 38-16-2854Fqvymak dehydrogenase [Enzymatic activity/volume] in Serum or Plasma by Lactate to pyruvate reactionLactate dehydrogenase Lab Routine induced hypertension, antepartum ([facility]-HCC) Expected: 08/27/2025, Expires: 08/27/2026[facility] HealthcareComment on above:Expected: 08/27/2025, Expires: 08/27/2026Start: 08-27-2025 End: 44-35-8583Htbffut, urine, 24 hourProtein, urine, 24 hour Lab Routine induced hypertension, antepartum ([facility]-HCC) Expected: 08/27/2025 (Approximate), Expires: 08/27/2026NONV HealthcareComment on above:Expected: 08/27/2025 (Approximate), Expires: 08/27/2026Start: 08-27-2025 End: 43-71-6137Zx and pttPt and ptt Lab Routine induced hypertension, antepartum ([facility]-HCC) Expected: 08/27/2025, Expires: 08/27/2026NONV Healthcare Comment on above:Expected: 08/27/2025, Expires: 08/27/2026Start: 08-27-2025 End: 63-74-8210Tmmfe [Mass/volume] in Serum or PlasmaUric acid Lab Routine induced hypertension, antepartum ([facility]-HCC) Expected: 08/27/2025 (Bouchra roximate), Expires: 08/27/2026NONV HealthcareComment on above:Expected: 08/27/2025 (Approximate), Expires: 08/27/2026Start: 08-27-2025 End: 98-68-4956Swyn nitrogen [Mass/volume] in Serum or PlasmaBUN Lab Routine induced hypertension, antepartum ([facility]HS-HCC) Expected: 08/27/2025, Expires:08/27/2026NONV HealthcareComment on above:Expected: 08/27/2025, Expires: 08/27/2026Start: 08-27-2025 End: 90-79-9822ZL biophysical profile w non stress testUS biophysical profile w non stress test Imaging Routine induced hypertension, antepartum ([facility]) Gestational diabetes mellitus (GDM) in second trimester, gestational diabetes method of control unspecified ([facility]) Expected: 08/27/2025 (Approximate), Expires: 02/25/2026[facility] HealthcareComment on above:Expected: 08/27/2025 (Approximate), Expires: 02/25/2026Start: 08-24-2025 End: 11-10-9540jqqcfhdgsz54/29/2025 1:30 PM EDT Support Visit Maternal- Medicine at [facility] [address] [facility] [place] [phone] Teena Sarmiento, RN [address] [facility] [place] [address] Kerline Augustin, RD [address] [facility], [address] [place] [address] [facility]: 08-24-2025 End: 31-35-7413Fjhjcfv encounter jwoihaygf41/29/2025 11:00 AM EDT Office Visit NOMS BCP OB [address] [facility] [place] [phone] Nathan Pop, DO [address] [place] [address] NOMS BCP OBStart: 08-12-2025 End: 29-51-2989Ylsqugx encounter /17/2025 2:40 PM EDT Routine NOMShalonda YOUNGN [address] [place], [id number] Nathan Pop, DO [address] [place] [address] NOMShalonda [place] OBGYNStart: 08-12-2025 End: 25-49-2572Apkvfvsqjik of glucose 3 hours after glucose challenge for glucose tolerance testGlucose tolerance, 3 hours Lab Routine Elevated glucose tolerance test Expected: 08/12/2025 (Approximate), Expires: 08/12/2026NONV Healthcare Work Phone: comment on above:Expected: 08/12/2025 (Approximate), Expires: 08/12/2026Start: 08-12-2025 End: 51-06-4071Hxmdyxkmbsfw / ancillary services zzpehtbrsg92/17/2025 2:00 PM EDT Ancillary Procedure NOMS Patti YOUNGN [address] [place] [address] [place] [address] QZPC Patti OBGYNStart: 07-31-2025 End: 22-57-1342TTV W Auto Differential panel - BloodCBC and differential Lab Routine Hypertension, unspecified type Wellness examination Expected: 07/31/2025 (Approximate), Expires: 08/29/2025NONV Healthcare Work Phone: Comment on above:Expected: 07/31/2025 (Approximate), Expires: 08/29/2025Start: 07-31-2025 End: 16-11-1417Wiyfxpbbkyema metabolic 2000 panel - Serum or PlasmaComprehensive metabolic panel Lab Routine Hypertension, unspecified type Wellness examination Expected: 07/31/2025 (Approximate), Expires: 08/29/2025NONV HealthcareComment on above:Expected: 07/31/2025 (Approximate), Expires: 08/29/2025Start: 07-31-2025 End: 61-94-0951Nwuhq 1996 panel - Serum or PlasmaLipid panel Lab Routine Wellness examination Lipid screening Expected: 07/31/2025 (Approximate), Exp ires: 08/29/2025NONV HealthcareComment on above:Expected: 07/31/2025 (Approximate), Expires: 08/29/2025Start: 07-30-2025 End: 09-30-8436Nwqrnnf encounter ixlcbhzsd75/04/2025 3:40 PM EDT Office Visit [facility] [address] [address] [place] [address] Eliceo Beltran DO [address] [place] [address] [place] [address] ArrivedNONov[facility] 230Comment on above:ArrivedStart: 39-87-5564PLUSC-19 Vaccine ( season)COVID-19 Vaccine ( season)[facility] HealthcareStart: 07-27-2025 Influenza vaccinationNONV HealthcareStart: 07-15-2025 End: 65-29-2774Mbglegv encounter ztjbclfhu72/20/2025 3:30 PM EDT Routine NOMS Patti OBGYN [address] [facility] [address] [place], [id number] Nathan Pop, [address] [place] [address] NOMS Patti OBGYNStart: 07-15-2025 End: 41-60-0601Lzuirkfgxurh / ancillary services zvujaswgie04/20/2025 2:30 PM EDT Ancillary Procedure NOMS Patti OBGYN [address] [place] [address] NOMS [place] OBGYNStart: 07-15-2025 End: 57-63-6837VXN panel - Blood by Automated countCBC Lab Routine Diabetes mellitus screening Expected: 07/15/2025 (Approximate), Expires: 07/15/2026NONV Healthcare Work Phone: comment on above:Expected: 07/15/2025 (Approximate), Expires: 07/15/2026Start: 07-15-2025 End: 83-08-5605Vtirmywhsor of glucose 1 hour after glucose challenge for glucose tolerance testGlucose tolerance, 1 hour Lab Routine Diabetes mellitus screening Expected: 07/15/2025 (Approximate), Expires: 07/15/2026NONV HealthcareComment on above:Expected: 07/15/2025 (Approximate), Expires: 07/15/2026Start: 06-22-2025 End: 77-51-1727Phdavwv encounter nxfyjemav42/28/2025 2:10 PM EDT Routine NOMS Patti OBGYN [address] [facility] [address] [place], [id number] Nathan Pop, [address] [place] [address] ArrivedNOMS Patti OBGYNComment on above:ArrivedStart: 06-22-2025 End: 30-97-3326Hfolp fetoprotein, maternalAlpha fetoprotein, maternal Lab Routine Second trimester ([facility]) 17 weeks gestation of ([facility]) Expected: 06/22/2025 (Approximate), Expires: 12/23/2025[facility] Healthcare Comment on above:Expected: 06/22/2025 (Approximate), Expires: 12/23/2025Start: 06-22-2025 End: 32-07-6144UF for pregnancyUS OB 14+ weeks anatomy scan Imaging Routine Screening, , for anatomic survey ([facility]) Expected: 06/22/2025, Expires: 09/22/2025[facility] Healthcare Work Phone: comment on above:Expected: 06/22/2025, Expires: 09/22/2025Start: 05-25-2025 End: 46-36-2140Gylswty encounter jlacmbmoo19/30/2025 2:40 PM EDT Routine NOMS BCP OB [address] [facility] [place] [phone] Nathan Pop, DO [address] [facility] [place] [address] NOMS BCP OBStart: 05-01-2025 End: 23-84-9332KRP/RhABO/Rh Lab Routine Missed menses , unspecified gestational age Expected: 05/01/2025 (Approximate), Expires: 05/01/2026[facility] HealthcareComment on above:Expected: 05/01/2025 (Approximate), Expires: 05/01/2026Start: 05-01-2025 End: 36-00-9065Zrovi type and Indirect antibody screen panel - BloodType and screen Lab Routine Missed menses , unspecified gestational age Expected: 05/01/2025 (Approximate), Expires: 05/01/2026[facility] Healthcare Work Phone: comment on above:Expected: 05/01/2025 (Approximate), Expires: 05/01/2026Start: 05-01-2025 End: 06-52-3811Jtayw of abuse panel - Urine by Screen methodRapid drug screen, urine Lab Routine , unspecified gestational age Encounter for supervision of normal first in first trimester Expected: 05/01/2025 (Approximate), Expires: 05/01/2026NOMS HealthcareComment on above:Expected: 05/01/2025 (Approximate), Expires: 05/01/2026Start: 01-19-2025 End: 80-01-7439[place]bygo encounter procedureNOMS BCP OBComment on above:Arrived Start: 01-19-2025 End: 55-46-3933IhsvjskccsefUvtkisbdvvtz Lab Routine Pain in female genitalia on intercourse Endometriosis Expected: 01/19/2025(Approximate), Expires: 01/19/2026 [facility] Work Phone: comment on above:Expected: 01/19/2025 (Approximate), Expires: 01/19/2026Start: 08-18-2024 End: 91-29-8452Atslkpl encounter procedureNOMS BCP OBComment on above:Arrived Start: 58-10-1515Xbeqcibwq vaccinationSamaritan North Health Centertart: 07-22-2024 End: 20-66-7410UM for pregnancyUS PELVIS-TRANSVAG IF INDICATED Imaging Routine Dysmenorrhea, unspecified Expected: 07/22/2024 (Approximate), Expires: 07/22/2025[facility] Work Phone: comment on above:Expected: 07/22/2024 (Approximate), Expires: 07/22/2025Start: 06-23-2024 End: 45-19-5622Osfbzie encounter fzwnfbypc80/29/2024 10:30 AM EDT Office Visit Obstetrics/Gynecology [address] [address] Charlene Rodriguez DO [address] [place] [address] 2 WEEK POST OPObstetrics/GynecologyComment on above:2 WEEK POST OPStart: 05-27-2024 End: 73-85-9168Tasbigpwj to same day surgery tqbegl4205/27/2024 7:30 AM EDT - 05/27/2024 9:30 AM EDT Surgery [facility] [address] [place] [address] Charlene Rodriguez, DO [address] [place] [address] LAPAROSCOPY FULGURATION OR EXCISION OF LESIONS OF THE OVARY PELVIC VISCERA OR PERITONEAL SURFACE BY ANY METHODBellevue Hospital SurgeryComment on above:LAPAROSCOPY FULGURATION OR EXCISION OF LESIONS OF THE OVARY PELVIC VISCERA OR PERITONEAL SURFACE BYANY METHODStart: 05-27-2024 End: 54-96-7566Hczy fulg/exc ovary viscera/peritoneal surfaceLAPAROSCOPY FULGURATION OR EXCISION OF LESIONS OF THE OVARY PELVIC VISCERA OR PERITONEAL SURFACE BYANY METHOD Endometriosis 05/27/2024 7:30 AM EDTME ORStart: 05-27-2024 Subsequent hospital visit by ynnpwmllo47/02/2024 7:30 AM EDT Hospital Encounter [facility] [address] [place] [address] Charlene Rodriguez, DO [address] [place] [address] [phone] (F ax) Endometriosis [N80.9][facility] SurgeryComment on above:Endometriosis [N80.9]Start: 74-60-9273Tcfjcghkq vaccinationInfluenza Vaccine (#1)NOMS HealthcareComment on above:Postponed from 07/27/2023 (Patient Refused)Start: 05-20-2024 End: 16-69-2406ddaelrnvwf24/25/2024 10:00 AM EDT [facility] DIRECTOR OF THERAPY SERVICES [facility] [address] [address] [place], [employer] Nurse [address] [address] RN GLENNGYN UROL [place] MOBComment on above:RN TEACHINGStart: 04-22-2024 End: 30-83-5596Dekbsoh encounter xgldsrapj68/28/2024 9:00 AM EDT Office Visit NOMS [facility] [address] [place] [address] Denny Rodríguez MD [address] [place] [address] NOMS SEP FMStart: 36-83-8586GQyZ,Tdap and Td Vaccines (7 - Td or Tdap)DTaP,Tdap and Td Vaccines (7 - Td or Tdap)[facility] SystemStart: 12-96-3150CNlI/Tdap/Td Vaccines (7 - Td or Tdap)DTaP/Tdap/Td Vaccines (7 - Td or Tdap)[facility]: 77-03-3588Sobax microalbumin profileDTaP,Tdap,Td Vaccine (7 - Td or Tdap)[facility] Cent[facility]art: 01-30-2024 End: 24-29-6758Ttwlord encounter nqvvqxoch99/06/2024 11:10 AM EST Consult NOMS [facility] OB [address] [place] [address] Nathan Pop DO [address] [place] [address] [facility]S [facility] OBStart: 01-15-2024 End: 49-22-9670Jwivugyqbkci / ancillary services wlskovqheg83/20/2024 8:00 AM EST Ancillary Procedure [facility] [address] [place] [address] [facility]S [facility] OBStart: 01-10-2024 End: 01-41-1775CS for pregnancyUS PELVIS-TRANSVAG IF INDICATED Imaging Routine Pelvic pain in female Expected: 01/10/2024 (Approximate), Expires: 01/10/2025 [facility] Work Phone: comment on above:Expected: 01/10/2024 (Approximate), Expires: 01/10/2025Start: 43-39-6636Ptfakdabte Health ScreeningBehavioral Health ScreeningSamaritan North Health Centertart: 29-27-4517Ymzywpbicr AssessmentDepression AssessmentCleBethesda North Hospitaltart: 44-70-3657Xjkao-19 Vaccine ( season) Covid-19 Vaccine ( season)[facility] Cent[facility]art: 86-16-5401Zwepsqfmw vaccinationSamaritan North Health Centertart: 83-73-3336WXGPLONNNI ASSESSMENTDEPRESSION ASSESSMENTSamaritan North Health Centertart: 07-25-0023Ihyewkjhe vaccinationInfluenza Vaccine (#1)[facility] HospitalStart: 26-21-0749[facility], Provider: Charlene Rodriguez, Status: Pen, Time: 1:30 PMFUV, Provider: Charlene Rodriguez, Status: Pen, Time: 1:30 PM DJ-VTVTP-Ibnpma [address] Work Phone: Start: 10-30-6292LVZ, Provider: Charlene Rodriguez, Status: Pen, Time: 11:15 AMFUV, Provider: Charlene Rodriguez, Status: Pen, Time: 11:15 AM EC-HONKY-Yivtui [address] Work Phone: Start: 24-78-2680LIO TESTINGPAP TESTINGSamaritan North Health Centertart: 26-55-7718Fkfbovudx for malignant neoplasm of cervixSamaritan North Health Centertart: 56-87-8253CPhF,Tdap and Td Vaccines (1 - Tdap)DTaP,Tdap and Td Vaccines (1 - Tdap)[facility]: 55-79-5572XZsB/Tdap/Td Vaccines (1 - Tdap)DTaP/Tdap/Td Vaccines (1 - Tdap)[facility] HospitalStart: 04-85-9546Dhxxy microalbumin profileSamaritan North Health Centertart: 70-35-2850Snxqg BMI Follow Up Plan Adult BMI Follow Up PlanFormerly [facility]aretart: 85-65-1863Frhmb BMI ScreeningAdult BMI ScreeningFormerly [facility]art: 46-32-3355ZVKOCC PCP TEAM CHRONIC DISEASE VISITANNUAL PCP TEAM CHRONIC DISEASE VISITAcmc Healthcare System [facility] Start: 38-18-6850KD CONTROLLED (<130/80)BP CONTROLLED (<130/80)[facility] Start: 62-93-9103UMTOWJBPU C SCREENINGHEPATITIS C SCREENINGAcmc Healthcare System [facility] Start: 42-17-1095Kkjsopmgq C screeningHepatitis C ScreeningAcmc Healthcare System [facility] Start: 12-28-2122FYH SCREENINGHIV SCREENINGSamaritan North Health Centertart: 32-49-2315LTV screeningHIV ScreeningSamaritan North Health Centertart: 41-28-7659Dtuhoas of varicella vaccinationVaricella Vaccines (1 of 2 - 13+ 2-dose series)[facility] ServicesStart: 97-19-6947Kszazztwiw ScreeningDepression ScreeningFormerly [facility]art: 36-90-5754Gzmishy ScreeningTobacco ScreeningFormerly [facility]art: 72-76-6478Wudmtpidt vaccinationVaricella Vaccines (1 of 2 - 2-dose childhood series)[facility] HospitalStart: 90-96-2228KIH Vaccines (1 of 1 - Standard series)MMR Vaccines (1 of 1 - Standard series)[facility] HospitalStart: 36-58-3660Fftovxeqz vaccinationVaricella Vaccines (1 of 2 - 2-dose childhood series)[facility] Start: 14-05-9767FRPBZ-19 VACCINE (#1)COVID-19 VACCINE (#1)[facility] Start: 31-97-6375IIJRPIARW B (1 of 3 - 3-dose series)HEPATITIS B (1 of 3 - 3- dose series)[facility]: 88-50-1519Jzwmyugay B Vaccine (1 of 3 - 3- dose series)Hepatitis B Vaccine (1 of 3 - 3-dose series)[facility]art: 91-59-2603Tionzdjxx B Vaccines (1 of 3 - 3-dose series)Hepatitis B Vaccines (1 of 3 - 3-dose series)[facility] HospitalStart: 27-11-2148Gnacf panelLipid PanelSumma HealthBacteria identified in Urine by CultureUrine culture Microbiology Routine Missed menses Ordered: 05/01/2025[facility] HealthcareComment on above:Ordered: 05/01/2025BC W Auto Differential panel - BloodCBC and differential Lab Routine Missed menses , unspecified gestational age Ordered: 05/01/2025[facility] HealthcareComment on above:Ordered: 05/01/2025ytology Cervical or vaginal smear or scraping studyPap Smear Pathology and Cytology Routine Well woman exam with routine gynecological exam Ordered: 08/18/2024[facility] Healthcare Work Phone: comment on above:Ordered: 08/18/2024Hemoglobin A1c/Hemoglobin.total in BloodHemoglobin A1c Lab Routine Missed menses , unspecified gestational age Ordered: 05/01/2025[facility] HealthcareComment on above: Ordered: 05/01/2025Hepatitis B virus surface Ag [Presence] in Serum or Plasma by ImmunoassayHepatitis B surface antigen Lab Routine Missed menses , unspecified gestational age Ordered: 05/01/2025[facility] HealthcareComment on above: Ordered: 05/01/2025Hepatitis C virus Ab [Presence] in Serum or Plasma by ImmunoassayHepatitis C antibody Lab Routine Missed menses , unspecified gestational age Ordered: 05/01/2025[facility] HealthcareComment on above:Ordered: 05/01/2025HIV-1/HIV-2 antigen/antibody combination immunoassayHIV-1 and HIV-2 antibodies Lab Routine Missed menses , unspecified gestational age Ordered: 05/01/2025[facility] HealthcareComment on above:Ordered: 05/01/2025 End: 34-67-2821Kqh pelvis w/o & w/contrast materialMRI FEMALE PELVIS WO/W IVCON Radiology Routine Pelvic and perineal pain 1 Occur[facility] 05[facility]17/2023 [facility] Work Phone: Comment on above:1 Occurrences starting 05/17/2023 until 4Reagin Ab [Presence] in Serum by RPRRPR Lab Routine Missed menses , unspecified gestational age Ordered: 05/01/2025[facility] Comment on above:Ordered: 05/01/2025Rubella antibody, IgGRubella antibody, IgG Lab Routine Missed menses , unspecified gestational age Ordered: 04/2025[facility] HealthcareComment on above:Ordered: 05/01/2025 End: 59-61-1331M[facility]gbqUniversity [facility] Work Phone: Comment on above:Once (Lab) for 1 Occurrences starting 11/30/2022 until 11/30/2022, 1 completed End: 64-40-5277QP for pregnancyUS OB follow up transabdominal approach Imaging Routine Gestational diabetes mellitus (GDM), antepartum, gestational diabetes method of control unspecified ([facility]) every 4 weeks for 2 Occurrences starting 09/16/2025 until 12/17/2025[facility] Work Phone: comment on above:every 4 weeks for 2 Occurrences starting 09/16/2025 [facility] Immunizations Immunization DateImmunizationNotesCare ZnzmfgobGdkysmgq59-35-5807xzkryiprk A vaccine, adult dosageCorey Kiesha DO Work Phone: [facility] ServicesVfefccazqz12-40-4411xyqot papilloma virus vaccine, quadrivalentCorey Kiesha DO Work Phone: [facility] ServicesMyagamdcwr23-53-5714wizedogad, seasonal, injectable, preservative freeCorey Kiesha DO Work Phone: [facility] ServicesRpzepbtefl70-68-1246wjxcmyfra virus vaccine, unspecified formulationGina Moschella DO Work Phone: [facility] HospitalMnvigs74-74-5834ypwps papilloma virus vaccine, quadrivalentCorey Kiesha DO Work Phone: [facility] ServicesMyjxxduqgu13-42-0609fmakgvjwt A vaccine, adult dosageCorey Kiesha DO Work Phone: [facility] ServicesViyogynlgt80-81-4956czvpi papilloma virus vaccine, quadrivalentCorey Kiesha DO Work Phone: [facility] ServicesBvsifdbqbc06-82-5220kjtptsd toxoid, reduced diphtheria toxoid, and acellular pertussis vaccine, adsorbedCorey Kiesha DO Work Phone: [facility] ServicesHupzzbyrod13-03-5077azzsacejhvxpt polysaccharide (groups A, C, Y and W-135) diphtheria toxoid conjugate vaccine (MCV4P)Nathan Kiesha DO Work Phone: [facility] ServicesHzquvkwndw01-96-5591lvrisqxtcj, tetanus toxoids and acellular pertussis vaccine, unspecified formulationCorey Kiesha DO Work Phone: [facility] ServicesBmzjfkdhpc41-56-1242jgesfma, mumps and rubella virus vaccineCorey Kiesha DO Work Phone: [facility] ServicesVmyahxazck45-21-5856jnmptxbiax vaccine, inactivatedCorey Kiesha DO Work Phone: [phone]-[facility] ServicesTqjqjbyrdf21-35-7748zjayxyrjvr, tetanus toxoids and acellular pertussis vaccine, unspecified formulationCorey Kiesha DO Work Phone: [phone] ServicesYsctgqgnrf26-39-5008AYR-Gaxzhbvjpfi influenzae type b conjugate vaccineCorey Kiesha DO Work Phone: [phone] ServicesNfpmukszgb18-42-5592faxredybl B vaccine, pediatric or pediatric/adolescent dosageCorey Kiesha DO Work Phone: [phone] ServicesWorynkjqic89-72-5246trurrpf, mumps and rubella virus vaccineCorey Kiesha DO Work Phone: [phone] [place], [place] [address]Ugjtihdque27-25-6527arogayyog poliovirus vaccine, live, oralCorey Kiesha DO Work Phone: [phone] [place], [place] [address]Vznyrfthlm11-99-7286SCZ-Bdlxbaxsuvm influenzae type b conjugate vaccineCorey Kiesha DO Work Phone: [phone] [place], [place] [address]Iobjacmeth44-86-2302trtogatlv B vaccine, pediatric or pediatric/adolescent dosageCorey Kiesha DO Work Phone: [phone] [place], [place] [address]Ddpzzifxit12-51-1403ucondprff poliovirus vaccine, live, oralCorey Kiesha DO Work Phone: [phone] [place], [place] [address]Anohjivywo58-55-7702CIR-Xptotlgewqf influenzae type b conjugate vaccineCorey Kiesha DO Work Phone: [phone] [place], [place] [address]Rervnkuuwb48-55-0273kgqvltgfe B vaccine, pediatric or pediatric/adolescent dosageCorey Kiesha DO Work Phone: [phone] [place], [place] [address]Qpzhumovuf90-21-6909zgqkveupj poliovirus vaccine, live, oralCorey Kiesha DO Work Phone: [phone] HealthcareNEGATED: Highlighted row has not occurred!43-42-0061ohpyczd, mumps and rubella virus vaccineKatcarlos yRder DO Work Phone: [facility]ma HealthComment on above:Deferred: Other - Rubella ImmuneNEGATED: Highlighted row has not occurred!16-70-1126ssjbeux toxoid, reduced diphtheria toxoid, and acellular pertussis vaccine, janetKathe Ryder DO Work Phone: [facility] HospitalComment on above:Deferred: No longer needed - Refused Tdap vaccine. Payers DatePayer CategoryPayerPolicy [id number] Managed Care - [facility] [id number] [facility] [id number] [id number] [id number]bpxzed32-92-1254 CtjkztoUZT027V0339202-60-0507Ipgpodx Health Insurance [id number] [id number] Health [id number] 2..1.948682.3.579.2.174 [id number] 2..1.160389.3.57[id number] 2..1.889610.3.57[id number] 2..1.482852.3.57[id number] 2..1.262681.3.579.2.16380-77-6850Rjwximh34760023 2..1.494677.3.579.2.85495-89-1690Ybepyhz24756403 2..1.386008.3.579.2.04069-06-6299Cpplihj92279936 2..1.231820.3.579.2.0[id number] 2.840.1.378339.3.579.2.63[id number] 2.0.1.837953.3.579.2.229833-30-6076Lhvamnd72689408 2.840.1.930074.3.579.2.779871-29-2890Jqzngxi61217452 2.0.1.933978.3.579.2.049131-04-5104Ooogxav12318389 2..1.534928.3.579.2.275315-92-8413Qlcweia88277413 2.0.1.812505.3.579.2.879311-78-8455Yikqzjx38913901 2..1.767279.3.579.2.939630-49-6311Qyjajui41083412 2..1.814160.3.579.2.436900-72-7289Vktspkg79145761 2..1.539587.3.579.2.453368-14-4190Ymtxdhm69288068 2..1.247603.3.579.2.752358-80-9759Lqktxhb59085620 2..1.647040.3.579.2.741487-37-2092Hsimiid18978347 2.0.1.903351.3.579.2.189482-15-2867Paxmbds10548404 2..1.856665.3.579.2.038520-87-9328Odidlpk91526015 2.0.1.735695.3.579.2.717853-38-4187Suzmczu5325554 2.840.1.654756.3.579.2.555544-75-7868Rpifrkf3578704 2..840.1.642057.3.579.2.992715-92-6308Peypyjx756566273 2..840.1.356310.3.579.2.574479-70-5135Werdlol166687108 2..840.1.385799.3.579.2.695904-23-8963Pgqowuf633035734 2.16.840.1.585256.3.579.2.5762Zarrlho25059542 2.840.1.712593.3.579.2.531 Social History DateTypeDetailFacilityStart: 01-06-2021 End: 49-47-6597Iqsxab uses seat beltAlways uses seat beltNOMS HealthcareStart: 12-10-2018 End: 80-22-1759Xtzxrjf smoking statusNever smoked tobacco (finding)[facility] Hospitaltart: 76-23-7706Jwhsehs smoking statusNeverMansfield Hospitaltart: 01-06-2021 End: 23-02-3918Xmr Assigned At [facility] [employer] Other ToPeoples HospitalComment on above: denies.Tobacco smoking statusMansfield Hospitaltart: 12-10-2018 End: 02-84-4924Tnsswun use and exposureSmokeless tobacco non-userSamaritan North Health Centertart: 04-11-2023 End: 86-35-8819Mhtwuix intakeCurrent drinker of alcohol (finding)[facility] Centertart: 56-64-2418Ckgjrvs Commentmaybe a few drinks a monthAcmc Healthcare System [facility] Start: 90-29-5953Ilf Assigned At [facility] HospitalNot on [facility] Hospitalumwv HealthStart: 01-10-2024 End: 37-23-4763Wstdbcw intakeLifetime non-drinker (finding)[facility] HealthWithin the last year, have you been [...] got money to buy more.Never trueNOMS HealthcareStart: 05-41-2949Uvgegvohv84FFKB HealthcareStart: 07-55-6351Ybvrooy Commentcaffeine: 1-2 cups per day, coffee and popNONV HealthcareStart: 20-73-6194Coybyyk SDOH IPV Uftd4Apwqk HealthStart: 51-56-3613Rbeihwl SDOH Housing Places Zellb2Edvol HealthStart: 04-12-2022 [facility] HealthStart: 11-18-2022 End: 46-93-2105Raevzlsc to SARS-CoV-2 (event)Not sureSufairfield medical center HealthAre you now , , , , never or living with a partner? MarriedNOMS HealthcareDo you feel stress - tense, restless, nervous, or anxious, or unable to sleep at night because yourmind is troubled all the time - these days [OSQ]Only a littleNONV HealthcareStart: 12-02-2018 End: 70-83-1640OmrIaugxe (finding)[facility] Centertart: 66-63-9286Wdo Assigned At [facility] Hospitaltart: 08-19-2025 End: 66-12-1033Pvedlhnmx beverage intakeCurrent non-drinker of alcohol (finding) [facility]FairhillTuenti Technologies [employer] Medical Equipment Procedure CodeEquipment CodeEquipment Original TextEquipment IdentifierDates [id number]: 08-20-2025 End: each by In Vitro route Daily Use to check FSBS four times daily [id number]: 08-20-2025 End: 94-81-3186Ebl pen needles to give insulin.[id number]: 09-04-2025 Functional Status XflyFxblczhuuvGyqoqfYqzabsjy15-83-3015Dahrd score [AUDIT-C]0 09/10/2025 10:17 AM EDT AshleyDanae Martinez [facility]09-04-2025Patient Health Questionnaire 2 item (PHQ-2) [Reported][facility] ServicesKmgiorukez27-24-4909Lserg score [AUDIT-C]1 12/29/2024 10:25 PM EST Mychart, GenericNOMS Yfhrrdenuc94-52-1248Jvc often do you have a drink containing alcohol?Monthly or less 12/29/2024 10:25 PM EST Mychart, Generic Monthly or lessNOMS Yblobzghpb77-15-7201Tqrbmeamlp status Patient does not drink 12/29/2024 10:25 PM EST Mychart, Generic Patient does not drinkNOSt. Luke's HospitalVqvdsiztum37-36-1848Ocw often do you have 6 or more drinks on 1 occasion?Never 12/29/2024 10:25 PM EST Mychart, Generic NeverNOMS [facility] 65-22-6183Ezszqta Health Questionnaire 2 item (PHQ-2) [Reported][facility] 69-42-3060Psofzahsel StatusN/[facility]03-08-2023Functional StatusN/[facility]02-04-2023Functional StatusN/[facility]01-02-2023Functional StatusN/[facility] 07-14-2022N/[facility] Clinical Notes 04-18-2022 to 10-06-2025 Note Date & AgapCgpvWgqwukqa57-58-0443 History of Present illness Narrative* Chivo Springer PA-C - 10/06/2025 2:30 PM EST Maternal- Medicine Consultation VIDEO Patient is present at work, provider present at [facility] HISTORY OF PRESENT ILLNESS: Juhi Naidu Valetiana [...] values to us weekly by e-mail to: [email or web address] or by fax to: [phone] Chivo Springer PA-C Maternal- Medicine Office phone: [phone] Chivo Springer PA-C 10/06/25 1606 documented in this encounterEast [facility]11-[facility]-2025 Miscellaneous Notes* Telephone Encounter - Anjana Davalos RN - 10/05/2025 2:39 PM EST Left message for patient to send in blood sugar logs prior to video visit toady in [facility] at 3 PM. Also, Instructed patient to contact [facility] if unable to keep appointment today at [facility], then to call at [phone] option 1 to reschedule. documented in this encounterEast [facility] Hospital11-10-2025 Telephone encounter Note* Telephone Encounter - Anjana Davalos RN - 10/05/2025 2:39 PM EST Left message for patient to send in blood sugar logs prior to video visit toady in [facility] at 3 PM. Also, Instructed patient to contact [facility] if unable to keep appointment today at [facility], then to call at [phone] option 1 to reschedule. [facility]11-05-2025 History of Present illness Narrative* Radha [...] to check FSBS. Blood Glucose Monitoring Suppl (D-Keepcon Glucometer) w/Device kit 1 kit, Does not [...] John San infection GDM (gestational diabetes mellitus) ([facility]) Headache History of menstrual cramps ([facility]) Varicella zoster Visual impairment HISTORY PAST MEDICAL HISTORY SOCIAL HISTORY Past Medical History: Diagnosis Date Amenorrhea d/t oral contraceptive pills Endometriosis John San infection GDM (gestational diabetes mellitus) ([facility]) Headache History of menstrual cramps severe Hypertension ([facility]) x1 Varicella zoster unsure Visual impairment w/ [...] History: Procedure Laterality Date APPENDECTOMY 05/2016 at [facility] 12/2022 retained placenta DISTAL [...] nursing note reviewed. Exam conducted with a dry kiln operator present. Vitals: Estimated body mass index is 30.36 kg/m as calculated from the following: Height as of 07/30/25: 5' 2 . Weight as of this encounter: 166 lb. BP: 140/82 Patient's last menstrual period was 02/21/2025. Assessment/Plan ICD-10-CM 1. Third trimester ([facility]) Z34.93 POCT urinalysis dipstick manually resulted 2. 31 weeks gestation of ([facility]) Z3A.31 3. Pre-eclampsia in third trimester ([facility]) O14.93 Return OB: Patient presents today for [...] of: Nathan Pop DO documented in this encounterHeartland Behavioral Health ServicesTjedjhxlgh49-52-8458 Miscellaneous Notes* Telephone Encounter - Cha Harris [...] change for this week. documented in this encounterEast [facility]11-03-2025 Telephone encounter Note* Telephone Encounter - [...] this new insulin change for this week. [facility]10-27-2025 Miscellaneous Notes* Telephone Encounter - SILKE [...] blood sugar logs weekly. documented in this [facility]10-27-2025 Telephone encounter Note* Telephone Encounter - SILKE [...] to send in blood sugar logs weekly. [facility] [employer] Zqonqj20-48-2778 History of Present illness Narrative* Chivo Springer PA-C - 09/21/2025 12:28 PM EDT Insulin dose increased due to elevated fastings. Chivo Springer PA-C 09/21/25 1229 documented in this encounterEast [facility] City Hospital10-22-2025 Miscellaneous Notes* Telephone Encounter - Cha [...] blood sugars next week. documented in this encounterEast [facility] City Hospital10-22-2025 Telephone encounter Note* Telephone Encounter - [...] send in new blood sugars next week. [facility]10-22-2025 History of Present illness Narrative* Steph [...] John San infection GDM (gestational diabetes mellitus) ([facility]) Headache History of menstrual cramps ([facility]) Varicella zoster Visual impairment HISTORY PAST MEDICAL HISTORY SOCIAL HISTORY Past Medical History: Diagnosis Date Amenorrhea d/t oral contraceptive pills Endometriosis John San infection GDM (gestational diabetes mellitus) ([facility]) Headache History of menstrual cramps severe Hypertension ([facility]) x1 Varicella zoster unsure Visual [...] History: Procedure Laterality Date APPENDECTOMY 05/2016 at [facility] 12/2022 retained placenta DISTAL [...] nursing note reviewed. Exam conducted with a dry kiln operator present. Vitals: Estimated body mass index is 29.78 kg/m as calculated from the following: Height as of 25: 5' 2 . Weight as of this encounter: 162 lb 12.8 oz. BP: 120/80 Patient's last menstrual period was 02/21/2025. Assessment/Plan ICD-10-CM 1. 29 weeks gestation of ([facility]) Z3A.29 POCT urinalysis dipstick manually resulted 2. Third trimester ([facility]) Z34.93 POCT urinalysis dipstick manually resulted 3. Hypertension affecting , antepartum ([facility]) O16.9 4. Gestational diabetes mellitus (GDM), antepartum, gestational diabetes method of control unspecified ([facility]) O24.419 Return OB: Patient presents today for [...] and continues to report glucose log to [facility]. Follow up Ultrasound in 4 weeks. Orders Placed This Encounter Procedures POCT urinalysis dipstick manually resulted Follow Up: Patient is to return to office in 2 week for routine OB appointment. Documented by Steph Keane NP on behalf of: Nathan Pop DO documented in this encounterHeartland Behavioral Health ServicesRipwpcoogn93-72-9980 History of Present illness Narrative* Madhuri Monroy MD - 09/10/2025 11:00 AM EDT Video Visit via Real-time Synchronous Audiovisual Provider Location: [facility]- MEDICINE [address] [place] [address], [address] [place] [address] Patient Location: Other [employer] [facility] office Patient Location Coin Machine Operator: None Video Visit Consent Statement: I discussed [...] that there are some limitations compared to tzhc-zd-skgg evaluations. We elected to proceed. REASON FOR [...] and the other consultants, we search on [employer] and all the available care everywhere epic I did review all the imaging studies of the patient available on EMR, ordered by the primary care physician and the other safety consultant HABITS: Patient activity no restrictions, diet [...] patient is in complete care of her microbiology quality control technician. Patient does have ultrasound video visit scheduled [...] the provider today? none documented in this encounterEast [facility] City Hospital10-10-2025 History of Present illness Narrative* Radha [...] Yes Have you been seen here at [facility] in a previous ? No Recent ER visits or hospitalizations? 09/03/25 [place] to r/o preeclampsia. Patient states labs WNL Bring blood sugar log or meter with you today? (Please bring them with you for every visit at [facility]) Yes Flu vaccine (Sep-January)? N/A Any [...] and the other consultants, we search on [employer] and all the available care everywhere epic I did review all the imaging studies of the patient available on EMR, ordered by the primary care physician and the other safety consultant HABITS: Patient activity no restrictions, diet [...] checking blood glucose and remote evaluation through [facility] office until delivery. 5. Discontinue blood [...] patient is in complete care of her microbiology quality control technician. Patient does have ultrasound video visit scheduled [...] with questions or concerns. documented in this encounterGlenbeigh HospitalAmplion Clinical Communications Yilmpy82-41-7291 History of Present illness Narrative* Steph Keane [...] meal for a total of 4times daily. ccmdbwsqqb-wmnhwge-ocblhnwo (Fiorinal) 50-325-40 MG capsule 1 capsule, Oral, [...] San infection Headache History of menstrual cramps ([facility]) Varicella zoster Visual impairment HISTORY PAST MEDICAL HISTORY SOCIAL HISTORY Past Medical History: Diagnosis Date Amenorrhea d/t oral contraceptive pills Endometriosis John San infection Headache History of menstrual cramps severe Hypertension ([facility]) x1 Varicella zoster unsure Visual [...] History: Procedure Laterality Date APPENDECTOMY 05/2016 at [facility] 12/2022 retained placenta DISTAL [...] nursing note reviewed. Exam conducted with a dry kiln operator present. Vitals: Estimated body mass index is 29.41 kg/m as calculated from the following: Height as of 25: 5' 2 . Weight as of this encounter: 160 lb 12.8 oz. BP: 170/90 Patient's last menstrual period was 02/21/2025. ASSESSMENT & PLAN ICD-10-CM 1. 27 weeks gestation of ([facility]) Z3A.27 POCT urinalysis dipstick manually resulted 2. Second trimester ([facility]) Z34.92 Documented by Steph Keane NP on behalf of: Steph Keane NP documented in this encounterHeartland Behavioral Health ServicesDfcagkwfrv71-15-7356 Miscellaneous Notes* Telephone Encounter - Cha Harris [...] to make that appt. documented in this encounterEast [facility] Hospital10-07-2025 Telephone encounter Note* Telephone Encounter - [...] Pt [facility] that appt. [facility] [employer] Ywefys13-02-1638 History of Present illness Narrative* Steph Keane [...] to check FSBS. Blood Glucose Monitoring Suppl ([employer]-Keepcon Glucometer) w/Device kit 1 kit, Does not [...] San infection Headache History of menstrual cramps ([facility]) Varicella zoster Visual impairment HISTORY PAST MEDICAL [...] History: Procedure Laterality Date APPENDECTOMY 05/2016 at [facility] 12/2022 retained placenta DISTAL [...] nursing note reviewed. Exam conducted with a dry kiln operator present. Vitals: Estimated body mass index is 29.23 kg/m as calculated from the following: Height as of 07/30/25: 5' 2 . Weight as of this encounter: 159 lb 12.8 oz. BP: (!) 158/92 Patient's last menstrual period was 02/21/2025. ASSESSMENT & PLAN ICD-10-CM 1. 26 weeks gestation of ([facility]) Z3A.26 POCT urinalysis dipstick manually resulted 2. Second trimester ([facility]) Z34.92 Return OB: Patient presents today for [...] and have her evaluated today at [facility] OB. I discussed with OB today and they are aware that patient is coming to be ev aluated. Orders Placed This Encounter Procedures POCT urinalysis dipstick manually resulted Follow Up: Patient is to return to office in 2 week for routine OB appointment. Documented by Steph Keane NP on behalf of: Steph Keane NP documented in this encounterHeartland Behavioral Health ServicesChbqbbnoxe33-20-1000 Group counseling note* Group Note - Kerline [...] Face to face time was 80 minutes. [employer] Work Phone: [phone] 521-620409-29-2025 Miscellaneous Notes* Group Note - Kerline Augustin [...] time was 80 minutes. documented in this encounterGlenbeigh HospitalTen Square Games [facility] Community HospitalRylhhh51-49-0168 History of Present illness Narrative* Steph Keane [...] San infection Headache History of menstrual cramps ([facility]) Varicella zoster Visual impairment HISTORY PAST MEDICAL [...] History: Procedure Laterality Date APPENDECTOMY 05/2016 at [facility] 12/2022 retained placenta DISTAL [...] nursing note reviewed. Exam conducted with a dry kiln operator present. Vitals: Estimated body mass index is 27.82 kg/m as calculated from the following: Height as of 07/30/25: 5' 2 . Weight as of this encounter: 152 lb 1.9 oz. BP: 138/82 Patient's last menstrual period was 02/21/2025. ASSESSMENT & PLAN ICD-10-CM 1. 24 weeks gestation of ([facility]) Z3A.24 POCT urinalysis dipstick manually resulted 2. Second trimester ([facility]) Z34.92 POCT urinalysis dipstick manually [...] on Labetalol 100mg BID. Will refer to [facility] for evaluation. Patient deniesany Headache or blurred vision. Documented by Steph Keane NP on behalf of: Nathan Pop DO documented in this encounterHeartland Behavioral Health ServicesYhlyevwfxg60-87-9519 History of Present illness Narrative* Eliceo Beltran [...] infection Headache History of menstrual cramps Hypertension ([facility]) Varicella zoster Visual impairment Objective ?Quick Links [...] Orders: Lipid panel; Future documented in this encounterHeartland Behavioral Health ServicesGtdplcxslf86-26-3131 History of Present illness Narrative* Christine Ravi [...] History: Procedure Laterality Date APPENDECTOMY 05/2016 at [facility] 12/2022 retained placenta DISTAL [...] nursing note reviewed. Exam conducted with a dry kiln operator present. Vitals: Estimated body mass index is 26.48 kg/m as calculated from the following: Height as of 12/30/24: 5' 2 . Weight as of this encounter: 144 lb 12.8 oz. BP: 120/80 Patient's last menstrual period was 02/21/2025. ASSESSMENT & PLAN ICD-10-CM 1. 20 weeks gestation of ([facility]) Z3A.20 POCT urinalysis dipstick manually resulted 2. Second trimester ([facility]) Z34.92 POCT urinalysis dipstick manually resulted 3. [...] of: Nathan Pop DO documented in this encounterHeartland Behavioral Health ServicesUpxrerivcs14-49-1836 History of Present illness Narrative* Steph Keane [...] San infection Headache History of menstrual cramps ([facility]) Varicella zoster Visual impairment HISTORY PAST MEDICAL [...] History: Procedure Laterality Date APPENDECTOMY 05/2016 at [facility] 12/2022 retained placenta DISTAL [...] nursing note reviewed. Exam conducted with a dry kiln operator present. Vitals: Estimated body mass index is 26.73 kg/m as calculated from the following: Height as of 12/30/24: 5' 2 . Weight as of this encounter: 146 lb 1.9 oz. BP: 118/74 Patient's last menstrual period was 02/21/2025. ASSESSMENT & PLAN (Z34.92) Second trimester ([facility]) Plan: POCT urinalysis dipstick manually resulted, Alpha fetoprotein, maternal, Alpha fetoprotein, maternal (Z3A.17) 17 weeks gestation of ([facility]) Plan: POCT urinalysis dipstick manually resulted, Alpha fetoprotein, maternal, Alpha fetoprotein, maternal (Z36.89) Screening, , for anatomic survey ([facility]) Plan: US OB 14+ weeks anatomy scan [...] of: Nathan Pop DO documented in this encounterHeartland Behavioral Health [id number] History of Present illness Narrative* Steph Keane [...] San infection Headache History of menstrual cramps ([facility]) Varicella zoster Visual impairment HISTORY PAST MEDICAL [...] History: Procedure Laterality Date APPENDECTOMY 05/2016 at [facility] 12/2022 retained placenta DISTAL [...] nursing note reviewed. Exam conducted with a dry kiln operator present. Vitals: Estimated body mass index is 25.24 kg/m as calculated from the following: Height as of 12/30/24: 5' 2 . Weight as of this encounter: 138 lb. BP: 122/80 Patient's last menstrual period was 02/21/2025. ASSESSMENT & PLAN ICD-10-CM 1. Second trimester ([facility]) Z34.92 POCT urinalysis dipstick manually resulted 2. 13 weeks gestation of ([facility]) Z3A.13 Return OB: Patient presents today for [...] of: Nathan Pop DO documented in this encounterHeartland Behavioral Health [id number] History of Present illness Narrative* Hina Go [...] Dysmenorrhea 03/29/2023 Endometriosis 03/29/2023 Gastroparesis 03/29/2023 Hypertension ([facility]) 03/29/2023 Intractable migraine without aura and with status migrainosus ([facility]) 03/29/2023 Migraines ([facility]) 03/29/2023 Chronic pelvic pain in female 03/29/2023 Pain in female genitalia on intercourse 03/29/2023 Pain on swallowing 03/29/2023 Panic disorder ([facility]) 03/29/2023 Patellofemoral disorders, left knee 03/29/2023 Patellofemoral disorders, right knee 03/29/2023 Posterior calcaneal exostosis 03/29/2023 Scapular dyskinesis 03/29/2023 Scoliosis 03/29/2023 Seasonal allergic rhinitis due to pollen 03/29/2023 Tachycardia, paroxysmal ([facility]) 03/29/2023 Tension headache 03/29/2023 Vitamin [...] History: Procedure Laterality Date APPENDECTOMY 05/2016 at [facility] 12/2022 retained placenta DISTAL [...] or undercooked meat, and stay away from [facility]. Patient has also been advised to [...] by: Hina Go LPN documented in this encounterHeartland Behavioral Health [id number] History of Present illness Narrative* Candis Yanes, NEGATIVE TURNER - 01/19/2025 2:50 PM EST Reason for Appointment: Patient ID: Juhi Gama is a 29 y.o. female who presents for Painful Export Patient presents today for Consult appointment. MEDICATIONS Current Outpatient Medications Medication Instructions czzrqecyep-fibefplgyzakt-gxbuuise 50-325-40 MG tablet 1 tablet, Oral, Every 6 hours PRN meloxicam (MOBIC) 15 mg, Oral, Daily metoprolol succinate XL (Toprol-XL) 25 MG 24 hr tablet Take 1 tablet by mouth daily ALLERGIES No Known Allergies PROBLEMS Active Ambulatory Problems Diagnosis Date Noted Acquired equinus deformity of foot 03/29/2023 Displacement of cervical intervertebral disc without myelopathy 03/29/2023 Dysmenorrhea 03/29/2023 Endometriosis 03/29/2023 Gastroparesis 03/29/2023 Hypertension ([facility]) 03/29/2023 Intractable migraine without aura and with status migrainosus ([facility]) 03/29/2023 Migraines ([facility]) 03/29/2023 Chronic pelvic pain in female 03/29/2023 Pain in female genitalia on intercourse 03/29/2023 Pain on swallowing 03/29/2023 Panic disorder ([facility]) 03/29/2023 Patellofemoral disorders, left knee 03/29/2023 Patellofemoral [...] History: Procedure Laterality Date APPENDECTOMY 05/2016 at [facility] 12/2022 retained placenta DISTAL [...] nursing note reviewed. Exam conducted with a dry kiln operator present. Vitals: Estimated body mass index [...] patient and patient given direct extension to Director Of Professional Services for any questions/concerns pertaining to fertility. Documented by Candis Yanes LPN on behalf of: Nathan Pop DO documented in this encounterHeartland Behavioral Health [id number] History of Present illness Narrative* Eliceo Beltran [...] History: Procedure Laterality Date APPENDECTOMY 05/2016 at [facility] 12/2022 retained placenta DISTAL [...] min Stress: No Stress Concern Present (12/29/2024) [employer] Occupational Health - Occupational Stress Questionnaire Feeling of Stress : Only a little Social Connections: Unknown (12/29/2024) Social Connection and Isolation Panel [NHANES] Frequency of Communication with Friends and Family: More than three times a week Frequency of Social Gatherings with Friends and Family: Once a week Attends Voodoo Services: Patient declined Active Member of Clubs [...] with the patient today. Current Outpatient Medications: jepbpfoblq-ewjgvwhymtmap-xnocfqao 50-325-40 MG tablet, Take 1 tablet by mouth every 6 (six) hours if needed for headaches, Disp: 20 tablet, Rfl: 0 desogestrel-ethinyl estradiol (Apri) 0.15-30 MG-MCG tablet, Take 1 tablet by mouth Daily, Disp: 21 tablet, Rfl: 12 metoprolol succinate XL (Toprol-XL) 25 MG 24 hr tablet, Take 1 tablet by mouth daily, Disp: 90 tablet, Rfl: 1 documented in this encounterHeartland Behavioral Health [id number] History of Present illness Narrative* Virgen Steen LPN - 08/18/2024 11:00 AM EDT Reason for Appointment: Patient ID: Juhi Cope is a 29 y.o. female who presents for Well Women Visit Patient presents today for Annual Exam. MEDICATIONS Current Outpatient Medications Medication Instructions lmpyhbayxe-kzanvtowcbyhw-ihocrbdt 50-325-40 MG tablet 1 tablet, Oral, Every [...] 03/29/2023 Pain on swallowing 03/29/2023 Panic disorder ([facility]) 03/29/2023 Patellofemoral disorders, left knee 03/29/2023 Patellofemoral [...] Headache History of menstrual cramps severe Hypertension ([facility]) x1 Varicella zoster unsure Visual [...] History: Procedure Laterality Date APPENDECTOMY 05/2016 at [facility] 12/2022 retained placenta DISTAL [...] nursing note reviewed. Exam conducted with a dry kiln operator present. Vitals: Estimated body mass index [...] of: Zenobia Gutierrez PA-C documented in this encounterHeartland Behavioral Health [id number] History of Present illness Narrative* Christine Ravi LPN - 07/22/2024 9:50 AM EDT Reason for Appointment: Patient ID: Juhi Cope is a 29 y.o. female who presents for Dysmenorrhea Patient presents today for Acute Visit. MEDICATIONS Current Outpatient Medications Medication Instructions pwvuaidtyp-lnldvnpbzyige-bsvyzxqd 50-325-40 MG tablet 1 tablet, Oral, Every [...] History: Procedure Laterality Date APPENDECTOMY 05/2016 at [facility] 12/2022 retained placenta DISTAL [...] nursing note reviewed. Exam conducted with a dry kiln operator present. Vitals: Estimated body mass index [...] of: Nathan Pop DO documented in this encounterHeartland Behavioral Health [id number] Telephone encounter Note* Telephone Encounter - Candis Garces - 04/29/2024 8:23 AM EDT Received message from admin Anna Webb to cancel surgery and all appts as pt had services elsewhere [facility]06-04-2024 Miscellaneous Notes* Telephone Encounter - Candis Garces - 04/29/2024 8:23 AM EDT Received message from admin Anna Webb to cancel surgery and all appts as pt had services elsewhere documented in this encounterAcmc [facility]05-31-2024 Telephone encounter Note * Telephone Encounter - Anna De Leon - 04/25/2024 1:10 PM EDT Pt got in sooner for surgery with her local senior web engineer. Please cancel surgery and all pre and post op appts. [facility]05-31-2024 Miscellaneous Notes* Telephone Encounter - Anna De Leon - 04/25/2024 1:10 PM EDT Pt got in sooner for surgery with her local senior web engineer. Please cancel surgery and all pre and post op appts. documented in this encounterAcmc [facility]02-15-2024 History of Present illness Narrative* Nathan Pop, [...] History: Procedure Laterality Date APPENDECTOMY 05/2016 at [facility] 12/2022 retained placenta DISTAL [...] nursing note reviewed. Exam conducted with a dry kiln operator present. Vitals: Estimated body mass index [...] of: Nathan Kiesha, DO documented in this encounterHeartland Behavioral Health [id number] Miscellaneous Notes* Telephone Encounter - Pippa Simon [...] mg tablet Class: Normal Route: ORAL Order: [id number] E-Prescribing Status: Receipt confirmed by pharmacy (05/17/2023 [...] Provider Department Center 05/20/2024 10:00 AM [facility]/23/2024 10:30 AM Charlene Rodriguez DO [facility] Appointment scheduled: As listed above Action taken: Refill request routed to clinician Pippa Simon RN January 03, 2024 4:29 PM * Telephone Encounter - Alena Tracy - 01/02/2024 3:52 PM EST Patient: Juhi Cope : 1995 Provider: Charlene Rodriguez DO Caller Phone #: [phone] (home) [phone] (cell) Reason for call: b/c refill Message routed to nurse triage Date of next visit: MEGAN: 12/10/2023 documented in this encounterAcmc Healthcare [facility]01-15-2024 NoteHNO ID: [id number] Author: CHARLENE RODRIGUEZ DO Service: ? 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 Where to find more information [place] [employer]: www.heart.org Contact a health care [...] provider. Document Revised: 07/27/2022 Document Reviewed: 07/27/2022 [employer] Patient Education 2022 [employer]. 09/12/2023 18:18:13 Hypertension, Adult, Cknc-bf-Cjum Hypertension, Adult Hypertension is another name for [...] doctor. Keep all follow-up visits. Medicines Take atye-nwn-utsizts and prescription medicines only as told by [...] provider. Document Revised: 08/31/2022 Document Reviewed: 08/31/2022 [employer] Patient Education 2022 [employer]. 09/12/2023 18:18:13 General Headache Without Cause, Pjgs-yj-Zwlm General Headache Without Cause A headache is pain or discomfort you feel around the head or neck area. There are many causes and types of headaches. In some cases, the cause may not be found. Follow these instructions at home: Watch your condition for any changes. Let your doctor know about them. Take these steps to help with your condition: Managing pain Take jpkt-bnz-iqovwib and prescription medicines only as told by [...] provider. Document Revised: 04/12/2022 Document Reviewed: 04/12/2022 [employer] Patient Education 2022 [employer]. Follow Up Care 09/12/2023 17:21:57 With:DENNY RODRÍGUEZ Address: [address] [place] [address] Business (1) When:09/15/2023 18:03:37 Comments:Follow-up with your primary care provider in 3 to 5 days. If symptoms worsen, do not improve, or new symptoms arise please report back to emergency department for further evaluation. [facility]10-18-2023 Evaluation + Plan noteExtracted from: Title:ED [...] date 09/12/23 18:02:00 EDT, 09/12/23 18:02:00 EDT [facility]10-16-2023 Instructions* Patient Instructions* Jihan Downs APRN.CNP - 09/10/2023 9:52 AM EDT Plan: Trial baclofen suppositories - can switch to pill vaginally if suppositories are not affordable Consider Pelvic floor physical therapy - can find local provider [email or web address] Consider going back to see Dr Kuldip Downs APRN.CNP documented in this encounterAcmc [facility]10-05-2023 NoteHNO ID: [id number] Author: Charlene Rodriguez DO Service: ? Author Type: Physician Type: Progress Notes Filed: 08/30/2023 11:15 AM Note Text: Tramadol rx sent to pharmacy.[facility]10-05-2023 History of Present illness Narrative* Charlene Rodriguez DO - 08/30/2023 11:13 AM EDT Tramadol rx sent to pharmacy. documented in this encounterAcmc [facility]10-05-2023 Miscellaneous Notes* Telephone Encounter - Chelsie Dueñas RN - 08/30/2023 10:50 AM EDT Last office visit: 08/24/2023 Assessment and Plan No diagnosis found. Trial baclofen suppositories Will send list of PTs Consider going back to Kuldip SIGNATURE: Jihan Downs APRN.PATTERN CARRIER Office visit with Dr. Rodriguez 07/16/2023 IMPRESSION: [...] plan. Charlene Rodriguez DO documented in this encounterAcmc [facility]09-29-2023 NoteHNO ID: [id number] Author: Jihan Downs APRN.ANA LAURA Service: ? Author Type: Nurse Practitioner Type: Progress Notes Filed: 09/10/2023 9:53 AM Note Text: Women's Health [employer] Department of Benign Gynecology [facility] PATIENT NAME: Juhi Cope DATE: 08/24/2023 Patient Name and verified: Yes Patient Location: [place] This Virtual Visit was completed using My Chart Zoom platform. I have communicated my name and active licensure. The patient's identity and physical location were verified at the time of this visit. Either the patient or their legal technical services representative has been informed of the [...] appointment yet. 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 Women's Health [employer] Department of Benign Gynecology [facility] PATIENT NAME: Juhi Cope DATE: 08/24/2023 Patient Name and verified: Yes Patient Location: [place] This Virtual Visit was completed using My Chart Zoom platform. I have communicated my name and active licensure. The patient's identity and physical location wereverified at the time of this visit. Either the patient or their legal technical services representative has been informed of the [...] appointment yet. GI - constipation is improved Export - hasn't tried due to pain and [...] physical therapy - or can go locally [facility]Catal[facility] [employer] Trial flexeril at bedtime Can consider Baclofen suppositories Continue Norethindrone - can take up to 3 months for it to stop periods, take at same time every day Relaxation techniques Jihan Downs APRN.PATTERN CARRIER OB History T0 L1 SAB0 IAB0 Ectopic0 Multiple0 Live Births0 Commodities Trader History LMP: 07/08/2023 (Exact Date), Having periods Age at Menarche: 14 Age at First : 27 Age at Menopause: Commodities Trader History Comments: Sexual Activity: Never; No partner [...] back to see Dr Rodriguez SIGNATURE: Jihan Downs, JMAI.PATTERN CARRIER Medical Decision Making: Problems: Low: Stable chronic illness Risk: Moderate: Drug management Medical Decision Making Level: 3 - Low documented in this encounterAcmc [facility]09-22-2023 Miscellaneous Notes* Telephone Encounter - Mariele Valdez APRN.CNP - 08/17/2023 3:17 PM EDT [...] Provider: Charlene Rodriguez DO Caller Phone #: [phone] (home) [phone] (cell) Reason for call: pt calling regarding mc message., still in pain. Please call [phone] Message routed to nurse triage Date of next visit: documented in this encounterAcmc Healthcare [facility]09-07-2023 Miscellaneous Notes* Telephone Encounter - Candis Suárez RN - 08/02/2023 11:29 AM EDT PA for orilissa completed via Cover Alertss. Juhi Cope (Morales: [id number]) - [id number] Orilissa 150MG tablets Status: Sent To Plan [...] too. Please advise. Thanks. documented in this encounterAcmc Healthcare [facility]08-21-2023 NoteHNO ID: [id number] Author: Charlene Rodriguez DO Service: ? 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 Author Type: Transportation Planning Technician Type: Progress Notes Filed: 06/12/2023 4:32 [...] BY: RT Claudia(Bryant) June 12, 2023 4:32 PMCMarietta Osteopathic [facility]07-18-2023 NoteHNO ID: [id number] Author: Boo Singh RN Service: Nursing Author [...] Cope DATE: June 12, 2023 TIME: 1:43 [facility]06-22-2023 NoteHNO ID: [id number] Author: Charlene Rodriguez, DO Service: ? 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 Charlene Rodriguez DO Tt: 20 minutesAcmc Healthcare System06-22-2023 History of Present illness Narrative* Charlene Rodriguez DO - 05/17/2023 1:05 PM EDT Images from the original note were not included. 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 Biggest complaint is cramping. Has had 3 periods of bleeding recently - 04/22/2023 LMP, last a few days, 05/04-05/10 bleeding again 05/11/2023 started again today. Takes aygestin 5mg daily. 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 Encourage to picking belt operator the flexeril as this will help with the cramping. Reviewed red flag bleeding symptoms that require trip to ER (soaking greater than one overnight padper hour, chest pain, shortness of breath, fatigue, palpitations).. Advised keep appt. Gives verbal understanding. Appointments for Next 60 Days Date Time Provider Location Dept Phone 05/17/2023 1:00 PM CHARLENE RODRIGUEZ [facility] [phone] Candis Suárez RN * Telephone Encounter - Tawana Nair [facility] - 05/11/2023 1:19 PM EDT Reason for call: other - Vaginal bleeding Provider name: Dr Rodriguez Additional comments: patient having more vaginal bleeding and concerned she is getting worse. Recommendation: routed to nurse triage pool documented in this encounterAcmc [facility]06-06-2023 Instructions* Patient Instructions* Jihan Downs APRN.ANA LUARA - 05/01/2023 11:47 AM EDT Plan Pelvic floor physical therapy - or can go locally [facility]Catalist [employer] Trial flexeril at bedtime Can consider Baclofen [...] pelvic pain society ([email or web address].org) documented in this encounterAcmc Healthcare System [facility]06-06-2023 History of Present illness Narrative* Jihan Downs APRN.ANA LAURA - 05/01/2023 10:30 AM EDT Juhi Cope is a 28 year old female who presents for problem visit for pain HPI: Pain is week before period and week of period. Worse on her period for every day she's bleeding Urinary - No symptoms GI - Always constipated. No meds Export - painful always Pain is on left [...] L0 SAB0 IAB0 Ectopic0 Multiple0 Live Births0 Commodities Trader History LMP: 03/26/2023 (Approximate), Having periods Age at Menarche: Age at First : Age at Menopause: Commodities Trader History Comments: Sexual Activity: Never; No partner [...] physical therapy - or can go locally [employer] Trial flexeril at bedtime Can consider Baclofen [...] Level: 4 - Moderate documented in this encounterAcmc Healthcare [facility]06-06-2023 NoteHNO ID: [id number] Author: Jihan Downs APRN.CNP Service: ? Author Type: Nurse Practitioner Type: Progress Notes Filed: 05/09/2023 11:46 AM Note Text: Juhi Cope is a 28 year old female who presents for problem visit for pain HPI: Pain is week before period and week of period. Worse on her period for every day she's bleeding Urinary - No symptoms GI - Always constipated. No meds Export - painful always Pain is on left [...] L0 SAB0 IAB0 Ectopic0 Multiple0 Live Births0 Commodities Trader History LMP: 03/26/2023 (Approximate), Having periods Age at Menarche: Age at First : Age at Menopause: Commodities Trader History Comments: Sexual Activity: Never; No partner [...] physical therapy - or can go locally [employer] Trial flexeril at bedtime Can consider Baclofen [...] management Medical Decision Making Level: 4 - ModerateAcmc Healthcare System05-31-2023 Miscellaneous Notes* Telephone Encounter - Marilee [...] months. Lucila Foss RN documented in this encounterAcmc Healthcare [facility]03-08-2023 Hospital Discharge instructions Patient Education 01/31/2023 18:59:59 [...] told by your health care provider. Take eind-qbz-nbhktdm and prescription medicines only as told by [...] 01/03/2007 Document Revised: 10/25/2018 Document Reviewed: 01/25/2018 [employer] Patient Education 2020 [employer]. Follow Up Care 01/31/2023 13:43:01 With:Denny Meza Address:Unknown When:02/03/2023 18:59:31 Comments:Follow-up for evaluation of hypertension in context of known preeclampsia in the period With:DENNY RODRÍGUEZ [facility] [place] [address]- Business (1) When:Within 3 Day(s) [facility]03-08-2023 Evaluation + Plan noteExtracted from: Title:ED NoteAuthor:Mayur Mabry PA-C CDate:01/31/23 Flank pain (R10.9: Unspecifi ed abdominal pain) Headache (R51.9: Headache, unspecified) Orders: CTA Chest Hepatic Function Panel [facility]02-04-2023 Hospital Discharge instructions Patient Education 12/30/2022 13:59:51 DIRECTOR OF THERAPY SERVICES - Post D&C, Hysteroscopy, LEEP or Essure/Laparoscopy [...] FT (Custom) (Custom) 12/30/2022 13:55:16 DIRECTOR OF THERAPY SERVICES - Post D&C, Hysteroscopy, LEEP or Essure/Laparoscopy [...] With:Denny Meza Address: [address], [place] [address] [place] [address]- Business (1) When: Unknown Comments:follow up in 1-2 weeks With:DENNY RODRÍGUEZ Address: [address] [place] [address]- Business (1) When:01/02/2023 09:21:18 [facility]02-04-2023 Evaluation + Plan noteExtracted from: Title:ANES [...] from:Title:ANES Pre-operative NoteAuthor:Kenneth Agustin MDDate: 12/30/22 Plan [place] [employer] Anesthesiologists (ASA) physical status classification: [...] With Cult Reflex US Pelvis Non-OB Complete [facility]01-10-2023 History of Present illness Narrative* Tory [...] Ross MD - 12/05/2022 3:19 PM EST [facility]: This patient was seen in the [facility] by the resident. I reviewed and agree with the care provided by the resident during or immediately following the visit including the patient's medical history, the resident's finding in the physical exam, patient's diagnosis and treatment plan. documented in this [facility]01-07-2023 NoteDepartment of Obstetrics and Gynecology Delivery Discharge Summary Admission on 11/28/2022 12:24 AM Hospital course: Juhi Cope at 35w1d admitted as a transfer from [facility] for [facility]. She was started on Magnesium there [...] Information for the patient's : Francie Cope [[id number]] female 2425 g (5 lb 5.5 oz) Apgars: Information for the patient's : Francie Cope [[id number]] : Infant: Girl Blood Type/Rh: O Antibody [...] Your Medications These medications were sent to [facility] [address] [place], [place] [id number] Hours: Sunday to Sunday 10 am to [...] pressure kit through [facility] (or the patient's own pharmacy on the weekend) [] Order the blood pressure log through [employer] [x] Place an office visit or [...] with more than 50% of the total lnww-bo-nmtr time of the visit in counseling/coordination of [...] be monitored and followed by the diet thermal technician. CRISS Oshea * Alejandra Arcos RN [...] and reassuring. CCM. Cx:/-3 FHT: Cat 1 [place]:q3-4 min A/P: 1. IOL-PreEwSF. FHT 130 baseline, with moderate variability, Accelerations present Yes, and rare late deceleration . Cervical exam unchanged. Cytotec x4 placed at this time. Patient intermittently feeling contractions. BP mild range. Cx: 1-/-3 FHP: defer FHT: Cat I [place]: a3-4min A/P: 1. IOL-PreEwSF: FHT Category I, [...] Cx: unchanged FHP: defer FHT: Cat I [place]: q4min A/P: 1. IOL-PreEwSF: FHT Category I, [...] 11/29/2022 6:17 AM Cx:1-2/60/-3 FHT: Cat I [place]:q4-5mins A/P: 1. IOL-PreEwSF: Cat I FHT with [...] per protocol. CCM. Cx:defer FHT: Cat I [place]:q4-6mins A/P: 1. IOL-PreEwSF: Cat I FHT with baseline 120, moderate variability, spontaneous accelerations, and no decelerations. BP normotensive to mild range since last note time. Pitocin @ 2 cc/hr, continue to titrate per protocol. Magnesium sulfate running for seizure prophylaxis, UOP 400 ml over past 4hours. CCM. Cx:defer FHT: Cat I [place]:q4-5mins A/P: 1. IOL-PreEwSF: Cat I FHT with baseline 135, moderate variability, spontaneous accelerations, and no decelerations. BP normotensive to mild range since last note time. Pitocin @ 6 cc/hr, continue to titrate per protocol. Magnesium sulfate running for seizure prophylaxis, UOP 600 ml over past 4hours. Will plan for AROM soon. CCM. Cx:defer FHT: Cat I [place]:irritability A/P: 1. IOL-PreEwSF: Pit @ 8 mu/min. Patient resting comfortably and only irritability tracing on toco. BP most recently mild range. On magnesium sulfate for seizure prophylaxis. UOP adequate. Continue magnesium and continue to titrate pitocin per protocol. Plan for AROM once patient rudi more regularly. Electronically signed by Cortney Velasquez DO 11/29/2022 4:21 PM Cx:470/-3 FHT: Cat 1 [place]:Not tracing A/P: 1. IOL-PreEwSF. FHT 135 baseline, with moderate variability, Accelerations present Yes, and nodecelerations seen . AROM at this time for moderate amount blood tinged fluid. Pitocin at 8cc/hr. Maternal BP mild range. On Magnesium for Seizure prophylaxis. Patient with adequate urinary output. CCM. Cx: defer FHP: defer FHT: Cat II [place]: not tracing well A/P: 1. IOL-PreEwSF: FHT [...] per RN FHP: defer FHT: Cat II [place]: q4min A/P: 1. IOL-PreEwSF: FHT Category II [...] delivery note for details documented in this [facility]01-07[facility]23 Hospital course Narrative* César Tran DO - 12/02/2022 12:32 PM EST Images from the original note were not included. Department of Obstetrics and Gynecology Delivery Discharge Summary Admission on 11/28/2022 12:24 AM Hospital course: Juhi Cope at 35w1d admitted [facility] She was startedon Magnesium there and [...] Information for the patient's : Francie Cope [[id number]] female 2425 g (5 lb 5.5 oz) Apgars: Information for the patient's : Francie Cope [[id number]] : : Girl Blood Type/Rh: O Antibody [...] Your Medications These medications were sent to [facility] [address] [place] [address] Hours: Sunday to Sunday 10 am to [...] pressure kit through [facility] (or the patient's own pharmacy on the weekend) [] Order the blood pressure log through [employer] [x] Place an office visit or [...] any of these occur. documented in this [facility]01-06-2023 Note* Care Coordination - Christine Michelle RN [...] home. Denies any concerns at this time. [id number] Note* Care Coordination - Christine Michelle RN [...] home. Denies any concerns at this time. [facility] [id number] Miscellaneous Notes* Care Coordination - Christine Michelle [...] this pt. Due to: in [facility] Hospital breast pump, supplies kit, swabs [...] Told patient to check with LC in [facility] for smaller flange sizes * L&D Delivery Note - Irina Kramer DO - 11/30/2022 4:04 AM EST Images from the original note were not included. Vaginal Delivery Note Department of Obstetrics and Gynecology Patient: Juhi Cope : 1995 Date of delivery: 11/30/2022 Pre-operative Diagnosis: Juhi Mojica0 at 35w1d 1. <37 weeks 2. 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 Bowden; Dr. Kramer Information: Information for the patient's : Francie Cope [[id number]] Information for the patient's : Francie Cope [[id number]] Description: normal Meconium Noted: No Anesthesia: epidural [...] or Surgery: I was present for all moarles elements of the procedure or surgery as described in the resident note. * Care Plan - Clotilde Mg RN - 11/29/2022 7:45 AM EST The patient will continue to make cervical change. Clotilde Mg RN documented in this [facility]01-06-2023 Obstetrics Note* Note - Ligia Bridges RN - 12/01/2022 9:00 AM EST 22.5mm flanges given to patient. Encouraged her to call for observation of pump session and smallerflanges. Martha in NICU to assist with personal pump. [id number] Hospital Discharge instructions* Discharge Instructions* Carol Bowden [...] as 8 weeks after delivery. Bleeding may picking belt operator and then decrease again around 7-10 [...] avoid constipation you may take a mild snia-swh-nphlcss stool softener (such as colace) as recommended [...] positive or a Person Under Investigation (PUI) Joxhul-ls-zsdxc transmission of COVID-19 during is unlikely, but after a baby is susceptible to rtcmes-ue-dynoeu spread. After your baby is born, your [...] clean your hands with an alcohol-based hand primary special educator that contains at least 60% alcohol. Clean your hands often Wash your hands often with soap and water for at least 20 seconds, especially after blowing your nose, coughing, or sneezing; going to the bathroom; and before eating or preparing food. If soap and water are not readily available, use an alcohol-based hand primary special educator with at least 60% alcohol, covering all [...] healthcare provider to call the local or [facility] health department. Persons who are placed [...] isolation precautions should be made on a gtzp-bm-fcpg basis, in consultation with healthcare providers and [...] respiratory tract signs and symptoms. Ways to [place] with Anxiety & Stress It is normal [...] illness that was first found in [facility], in October 2019. It has since [...] seen in people before. This virus spreads enpbcr-tu-wrogtu through droplets from coughing and sneezing. It [...] water aren't available, use an alcohol-based hand primary special educator. Call 911 anytime you think you may [...] of: February 25, 2020 Content Version: 12.4 PEER. Care instructions adapted under license by your [...] handles, desks, toilets, faucets, sinks) with household candy starch mold printer and EPA-registered disinfectants that are appropriate for [...] appropriate. These supplies include tissues, paper towels, candy starch mold printer and EPA-registered disinfectants (see list link at [facility] website). If a separate bathroom is not [...] be used for other purposes. Consult the intern's instructions for cleaning and disinfection products used. [...] used if appropriate for the surface. Follow intern's instructions for application and proper ventilation. Check [...] for harder to kill viruses. Follow the intern's instructions for all cleaning and disinfection products (e.g., concentration, application method and contact time, etc.). Soft (porous) surfaces such as carpeted floor, rugs, and drapes Remove visible contamination if present and clean with appropriate candy starch mold printer indicated for use on these surfaces. After cleaning: Launder items as appropriate in accordance with the intern's instructions. If possible, launder items using the [...] items as appropriate in accordance with the intern's instructions. If possible, launder items using the warmest appropriate water setting for the items and dry items completely. Dirty laundry from an ill person can be washed with other people's items. Clean and disinfect clothes hampers according to guidance above for surfaces. If possible, considerplacing a sleeping bag filler that is either disposable (can be thrown away) or can be laundered. [facility] has a list of EPA approved cleaning products on their website - https://www.cdc.gov/coronavirus/ 2019-ncov/community/home/cleaning-disinfection.html https://www.[employer]/Zevjr-Ytuputejdhf-Zjhdjeuq-Products-List.pdf [employer] with delivery and picking belt operator services: [employer]: Free picking belt operator at locations Delivery is $12.95 a month Website - [employer] [place]: Ultimate Hoops Scoreboard Operator $2.95 (1st order is free) Delivery is $14.95 Website - [employer] [place]: reeling machine setup operator is free Delivery is $5.95 Website [employer]: reeling machine setup operator is $4.95 Delivery is $9.95 Website [employer]: reeling machine setup operator is $4.95 Delivery is $9.95 Website [employer]: Can be ordered for delivery and picking belt operator with [employer] Website - www.flyRuby.com [employer]: Free deliver for first 3 orders of $35 or more Website - [employer] Will deliver from [employer], [employer], [employer], and [employer]. Annual membership is $99 Monthly membership is $14 * Attachments The following attachments cannot be sent through Care Everywhere. * Preeclampsia Discharge Instructions (Tongan) documented in this [facility]01-05-2023 Obstetrics Note* Note - Sheila Harrell RN - 11/30/2022 10:37 AM EST Swabs given to patient and educated how to use and to bring to [facility] [id number] Obstetrics Note* Note - Sheila Harrell RN - 11/30/2022 10:30 AM EST Breast pump use indicated for this pt. 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 Bowden; Dr. Kramer Information: Information for the patient's : Francie Cope [[id number]] Information for the patient's : Francie Cope [[id number]] Description: normal Meconium Noted: No Anesthesia: epidural [...] surgery as described in the resident note. [facility] [id number] NoteEpidural Block Time Out: 11/29/2022 6:17 PM Patient location during procedure: OB Start time: 11/29/2022 6:18 PM End time: 11/29/2022 6:45 PM Reason for block: labor analgesia Staffing Performed: WEB ENGINEER Resident/WEB ENGINEER: Jimmie Kaur APRN - WEB ENGINEER Preanesthetic Checklist Completed: patient identified, IV checked, [...] to make cervical change. Clotilde Mg RN [facility] [id number] NotePatient: Juhi Cope Procedure Information Date: 11/28/22 [...] products. patient is not NPO [facility] Note[facility] Progress Note Date: 11/28/2022 Time: [...] and reassuring. CCM. Cx:-3 FHT: Cat 1 [place]:q3-4 min A/P: 1. IOL-PreEwSF. FHT 130 baseline, with moderate variability, Accelerations present Yes, and rare late deceleration . Cervical exam unchanged. Cytotec x4 placed at this time. Patient intermittently feeling contractions. BP mild range. Cx: 1--3 FHP: defer FHT: Cat I [place]: a3-4min A/P: 1. IOL-PreEwSF: FHT Category I, [...] Cx: unchanged FHP: defer FHT: Cat I [place]: q4min A/P: 1. IOL-PreEwSF: FHT Category I, [...] 11/29/2022 6:17 AM Cx:1-2/60/-3 FHT: Cat I [place]:q4-5mins A/P: 1. IOL-PreEwSF: Cat I FHT with [...] per protocol. CCM. Cx:defer FHT: Cat I [place]:q4-6mins A/P: 1. IOL-PreEwSF: Cat I FHT with baseline 120, moderate variability, spontaneous accelerations, and no decelerations. BP normotensive to mild range since last note time. Pitocin @ 2 cc/hr, continue to titrate per protocol. Magnesium sulfate running for seizure prophylaxis, UOP 400 ml over past 4 hours. CCM. Cx:defer FHT: Cat I [place]:q4-5mins A/P: 1. IOL-PreEwSF: Cat I FHT with baseline 135, moderate variability, spontaneous accelerations, and no decelerations. BP normotensive to mild range since last note time. Pitocin @ 6 cc/hr, continue to titrate per protocol. Magnesium sulfate running for seizure prophylaxis, UOP 600 ml over past 4 hours. Will plan for AROM soon. CCM. Cx:defer FHT: Cat I [place]:irritability A/P: 1. IOL-PreEwSF: Pit @ 8 mu/min. Patient resting comfortably and only irritability tracing on toco. BP most recently mild range. On magnesium sulfate for seizure prophylaxis. UOP adequate. Continue magnesium and continue to titrate pitocin per protocol. Plan for AROM once patient rudi more regularly. Electronically signed by Cortney Velasquez DO 11/29/2022 4:21 PM Cx:/-3 FHT: Cat 1 [place]:Not tracing A/P: 1. IOL-PreEwSF. FHT 135 baseline, with moderate variability, Accelerations present Yes, and no decelerations seen . AROM at this time for moderate amount blood tinged fluid. Pitocin at 8cc/hr. Maternal BP mild range. On Magnesium for Seizure prophylaxis. Patient with adequate urinary output. CCM. Cx: defer FHP: defer FHT: Cat II [place]: not tracing well A/P: 1. IOL-PreEwSF: FHT [...] 34w6d Is this patient being delivered between 98l7i-06e5d weeks with an acceptable medical indication (obstetric, maternal, and/or )? NA: Not Applicable: This patient is being delivered outside of the PC-01 range (60c2e-80v0o) for reasons indicated in the medical record. [...] 34w6d Is this patient being delivered between 57o6d-44e0i weeks with an acceptable medical indication (obstetric, maternal, and/or )? NA: Not Applicable: This patient is being delivered outside of the PC-01 range (49h3p-32l5a) for reasons indicated in the medical record. [...] plan. Cassie Constantino MD 11/28/2022, 12:48 AM [facility] [id number] History and physical note* Cassie Constantino MD [...] 34w6d Is this patient being delivered between 96y6d-82i6h weeks with an acceptable medical indication (obstetric, maternal, and/or )? NA: Not Applicable: This patient is being delivered outside of the PC-01 range (36b9v-27c3r) for reasons indicated in the medical record. [...] MD 11/28/2022, 12:48 AM documented in this [facility]01-02-2023 Evaluation + Plan note Extracted from:Title:OB High Risk Antepartum Visit *Author:Fredi DORSEY MD Date:11/27/22 Impression and Plan Diagnosis 34 weeks 5 days. Preeclampsia. contractions. Maternal tachycardia.. Course: Worsening, New onset headache may be a signal of worsening symptoms of preeclampsia.. Orders I discussed this case with the maternal- medicine department at [facility] in [facility], Dr. Thea Nieves, she accepted to transfer due to preeclampsia. Plan: Magnesium sulfate per protocol, betamethasone, transfer arrangements are in progress..[facility]08-19-2022 Evaluation + Plan note Extracted from:Title:ED [...] Proctofoam and follow-up with her DIRECTOR OF THERAPY SERVICES physician in the outpatient setting. She is provided with a note for work. Additional diagnosis: Constipation, UTI and [facility]08-19-2022 Hospital Discharge instructions Follow Up Care 07/14/2022 06:07:36 With:Denny Meza Address:Unknown When:07/17/2022 07:24:48 With:DENNY RODRÍGUEZ Address: [address] [place] [place] [address] Business (1) When:Within 3 Day(s) [facility]08-19-2022 Hospital Discharge instructions Follow Up Care 07/14/2022 04:40:16 With:Denny Meza Address: [address], [address] [place] [address]- Business (1) When:07/17/2022 Comments:Appointment has already been scheduledCall Dr if fever>100.5 F, heavy bleedingCall for any problems.Call for severe abdominal painCall physician for heavy vaginal bleedingCall physician if symptoms worsenPlease call if you need to rescheduleReturn for contractions closer, longer, harderReturn ifruptured membranes or vaginal bleeding [facility]05-31-2022 Evaluation + Plan note Diagnostic Tests Pending * Qexxv-4-Uwpccfuxbog 04/25/22 * NIGEL w/Reflex if POS 04/25/22 * Ceruloplasmin 04/25/22 * HCV Antibody RFX to Quant PCR 04/25/22 * HBV Core Ab 04/25/22 * Hepatitis B Surface Antibody 04/25/22 * Hepatitis B Surface Antigen 04/25/22 * Smooth Muscle Antibody Screen 04/25/22 [facility]05-24-2022 Evaluation note* Encounter Date Diagnosis Assessment Notes Treatment Notes Treatment Clinical Notes March, Elevated liver function tests (I CD-10 - R79.89) LABS INDICATED ABOVE [employer] Other Evaluation note* Diagnosis Pelvic pain in female- Primary Unspecified symptom associated with female genital organs [facility]* Diagnosis Chronic pelvic pain in female- Primary Unspecified symptom associated with female genital organs Constipation, unspecified constipation type High-tone pelvic floor dysfunction Other specified disorders of female genital organs Diastasis of rectus abdominis Dysmenorrhea Other specified dyspareunia documented [facility]* Diagnosis Endometriosis- Primary Endometriosis, site unspecified Pelvic and perineal pain Unspecified symptom associated with female genital organs [facility]* Diagnosis Pelvic pain in female- Primary Unspecified symptom associated with female genital organs [facility]* Diagnosis Pelvic pain in female- Primary Unspecified symptom associated with female genital organs documented in this encounter [facility] note* Diagnosis High-tone pelvic floor dysfunction- Primary Other specified disorders of female genital organs Chronic pelvic pain in female Unspecified symptom associated with female genital organs documented in this encounter [facility] note* Diagnosis Pelvic and perineal pain Unspecified symptom associated with female genital organs documented in this encounter [facility] note* Diagnosis Menorrhagia with regular cycle Pelvic pain in female Unspecified symptom associated with female genital organs Uses control [facility] Diagnosis Preeclampsia, severe, third trimester- Primary Preeclampsia, severe, third trimester documented [facility]* Diagnosis Pre-eclampsia, severe, delivered- Primary [facility]* Diagnosis Dysmenorrhea, unspecified documented in this encounter [facility]* Diagnosis Well woman exam with routine gynecological exam Routine gynecological examination [facility]* Diagnosis Hypertension, unspecified type (CMS/HCC)- Primary Paroxysmal tachycardia, unspecified (CMS/HCC) Paroxysmal tachycardia, unspecified Chronic right shoulder pain Pain in joint, shoulder region Scapular dyskinesis Lack of coordination [facility]* Diagnosis Pain in female genitalia on intercourse Dyspareunia Endometriosis Endometriosis, site unspecified documented in this encounter [facility] HealthcareEvaluation noteNo assessment information availableMet[facility] Work Phone: Evaluation note* Diagnosis Missed menses , unspecified gestational age Encounter for supervision of normal first in first trimester [facility]* Diagnosis Nonintractable episodic headache, unspecified headache type- Primary Second trimester ([facility]) state, incidental 13 weeks gestation of ([facility]) documented [facility]* Diagnosis Sinusitis, unspecified chronicity, unspecified location- Primary Second trimester ([facility]) state, incidental 17 weeks gestation of ([facility]) Screening, , for anatomic survey ([facility]) Encounter for anatomic survey documented [facility]* Diagnosis 20 weeks gestation of ([facility]) Second trimester ([facility]) state, incidental Diabetes mellitus screening Screening for diabetes mellitus documented [facility]* Diagnosis Wellness examination- Primary Hypertension, unspecified type Lipid screening Screening for lipoid disorders [facility]* Diagnosis Wellness examination- Primary Hypertension, unspecified type Lipid screening Screening for lipoid disorders 24 weeks gestation of ([facility]) Second trimester ([facility]) state, incidental Elevated glucose tolerance test Impaired glucose tolerance test [facility]* Diagnosis Gestational diabetes mellitus (GDM) in second trimester, gestational diabetes method of control unspecified [facility] Diagnosis Wellness examination- Primary Hypertension, unspecified type Lipid screening Screening for lipoid disorders 26 weeks gestation of ([facility]) Second trimester ([facility]) state, incidental induced hypertension, antepartum ([facility]) Transient hypertension of , antepartum Gestational diabetes mellitus (GDM) in second trimester, gestational diabetes method of control unspecified ([facility]) [facility] Diagnosis Wellness examination- Primary Hypertension, unspecified type Lipid screening Screening for lipoid disorders Hypertension affecting , antepartum ([facility])- Primary 27 weeks gestation of ([facility]) Second trimester ([facility]) state, incidental documented [facility] encounter [facility]* Diagnosis Diet controlled gestational diabetes mellitus (GDM) in second trimester- Primary Essential hypertension affecting in third trimester [facility] Diagnosis 28 weeks gestation of - Primary Insulin controlled gestational diabetes mellitus (GDM) in second trimester Essential hypertension affecting in third trimester [facility]* Diagnosis Essential hypertension affecting in third trimester [facility] Diagnosis Wellness examination- Primary Hypertension, unspecified type Lipid screening Screening for lipoid disorders 29 weeks gestation of ([facility]) Third trimester ([facility]) state, incidental Hypertension affecting , antepartum ([facility]) Gestational diabetes mellitus (GDM), antepartum, gestational diabetes method of control unspecified([facility]) documented in this encounter [facility]Evaluation [facility]* Diagnosis Insulin controlled gestational diabetes mellitus (GDM) in third trimester- Primary Essential hypertension affecting in third trimester documented [facility] encounter [facility]* Diagnosis Insulin controlled gestational diabetes mellitus (GDM) in second trimester documented [facility]* Diagnosis Insulin controlled gestational diabetes mellitus (GDM) in second trimester documented [facility]* Diagnosis Wellness examination- Primary Hypertension, unspecified type Lipid screening Screening for lipoid disorders Third trimester ([facility]) state, incidental 31 weeks gestation of ([facility]) Pre-eclampsia in third trimester ([facility]) documented in this encounter [facility] HealthcareEvaluation note* Diagnosis Insulin controlled gestational diabetes mellitus (GDM) in third trimester- Primary Essential hypertension affecting in third trimester documented [facility] SystemHistory general Narrative - Reported* Type Description Date Medical History headache Surgical HistoryappendectomySurgical Historyshoulder surgerySurgical History endometriosis [facility] Other History of Present illness Narrative* 26 [...] engaged x 1 year * working at [employer] in [place] [address] Work Phone: Hospital course Narrative No data available for this section [facility] No data available for this section [facility]InstructionsNot on filedocumented in this encounter [facility] filedocumented in this encounter [facility] on filedocumented in this encounter [facility]ructionsNot on filedocumented in this encounter [facility]* Attachments The following attachments cannot be sent through Care Everywhere. * Preeclampsia (Tongan) documented in [facility] encounter[facility] SystemInstructionsNot on file documented in this encounterPro[facility] SystemInstructionsNot on file documented in this encounter[facility] SystemInstructionsNot on file documented in this encounter[facility] SystemInstructionsNot on file documented in this encounter[facility] SystemProgress note No data available for this section [facility] HospitalReason for visit NarrativePT HERE AT REQUEST OF DR RODRÍGUEZ FOR EVALUATION AND TREATMENT OF ELVATED LIVER FUNCTION- ( DR. SAMUEL PT), LABS FROM DR RODRÍGUEZ REVIEWED BY DR Iraheta [employer] Other Summary Purpose Family History Unknown Family [...] Bilateral ureterolysis Surgeon: Dr. 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 NEGATIVE TURNER Reason for Referral SpecialtyDiagnoses / ProceduresReferred By ContactReferred To ContactMR IMAGING Diagnoses Pelvic and perineal pain Procedures MRI FEMALE PELVIS WO/W IVCON MRI PELVIS W/O & W/CONTRAST MATERIAL Charlene Rodriguez DO [address] [place] [address] Mr Imaging Referral IDStatusReasonZephyrhills DateExpiration DateVisits RequestedVisits [id number] Auto-Generated Referral /[id number] / ProceduresReferred By ContactReferred To [facility] Diagnoses Constipation, unspecified constipation type High-tone pelvic floor dysfunction Diastasis of rectus abdominis Dysmenorrhea Other specified dyspareunia Chronic pelvic pain in female Procedures CONSULT TO PHYSICAL THERAPY PHYSICAL THERAPY EVALUATION HIGH COMPLEX 45 MINS Jihan Downs, WORK COUNSELOR.PATTERN CARRIER [address] [place] [address] [facility] [employer] [address] [place] [id number] Referral IDStatLulacaterina DateExpiration DateVisits RequestedVisits [id number] Auto-Generated Referral / Chief Complaint and Reason for Visit Chief Complaint Admit Date N94.10 N80.9 February 02, 2025 3:1 6pm Additional Source Comments INFORMATION SOURCE (unrecogn ized section and content) DATE CREATED AUTHOR 10/26/2020 [facility] DATE CREATED AUTHOR AUTHOR'S ORGANIZ ATION 11/06/2020 [facility] DATE CREATED AUTHOR AUTHOR'S ORGANIZ ATION 12/17/2020 [facility] DATE CREATED AUTHOR AUTHOR'S ORGANIZ ATION 04/21/2021 [facility] DATE CREATED AUTHOR AUTHOR'S ORGANIZ ATION 06/05/2021 [facility] DATE CREATED AUTHOR AUTHOR'S ORGANIZ ATION 10/02/2021 [facility] DATE CREATED AUTHOR AUTHOR'S ORGANIZ ATION 02/10/2022 [facility] DATE CREATED AUTHOR AUTHOR'S ORGANIZ ATION 12/05/2022 [facility] DATE CREATED AUTHOR AUTHOR'S ORGANIZ ATION 04/30/2024 [facility] DATE CREATED AUTHOR AUTHOR'S ORGANIZ ATION 02/09/2025 [facility] DATE CREATED AUTHOR AUTHOR'S ORGANIZ ATION 03/15/2025 [facility] DATE CREATED AUTHOR AUTHOR'S ORGANIZ ATION 08/03/2025 [facility] DATE CREATED AUTHOR AUTHOR'S ORGANIZ ATION 08/13/2025 [facility] DATE CREATED AUTHOR AUTHOR'S ORGANIZ ATION 08/16/2025 [facility] DATE CREATED AUTHOR AUTHOR'S ORGANIZ ATION 08/20/2025 [facility] DATE CREATED AUTHOR AUTHOR'S ORGANIZ ATION 08/21/2025 [facility] DATE CREATED AUTHOR AUTHOR'S ORGANIZ ATION 08/29/2025 [facility] DATE CREATED AUTHOR AUTHOR'S ORGANIZ ATION 09/12/2025 [facility] DATE CREATED AUTHOR AUTHOR'S ORGANIZ ATION 10/02/2025 [facility] DATE CREATED AUTHOR AUTHOR'S ORGANIZ ATION 10/08/2025 [facility] Care Team (unrecognized sect ion and content) Team MemberRelationshipSpecialtyStart DateEnd Date Denny Rodríguez MD [address] [place] [address] PCP - GeneralFamily Medicine12/03/14Team MemberRelationshipSpecialtyStart DateEnd Date Denny Rodríguez MD [address] [place] [address] PCP - GeneralFamily Medicine12/03/14Team MemberRelationshipSpecialtyStart DateEnd Date Denny Rodríguez MD [address] [place] [address] PCP - GeneralFamily Medicine12/03/14Team MemberRelationshipSpecialtyStart DateEnd Date Denny Rodríguez MD [address] [place] [address] PCP - GeneralFamily Medicine12/03/14Team MemberRelationshipSpecialtyStart DateEnd Date Denny Rodríguez MD [address] [place] [address] PCP - GeneralFamily Medicine12/03/14Team MemberRelationshipSpecialtyStart DateEnd Date Denny Rodríguez MD [address] [place] [address] PCP - GeneralFamily Medicine12/03/14Team MemberRelationshipSpecialtyStart DateEnd Date Denny Rodríguez MD [address] [place] [address] PCP - GeneralFamily Medicine12/03/14Team MemberRelationshipSpecialtyStart DateEnd Date Denny Rodríguez MD [address] [place] [address] PCP - GeneralFamily Medicine12/03/14Team MemberRelationshipSpecialtyStart DateEnd Date Denny Rodríguez MD [address] [place] [address] PCP - GeneralFamily Medicine12/03/14Team MemberRelationshipSpecialtyStart DateEnd Date Denny Rodríguez MD [address] [place] [address] [facility] - [facility]12/03/14Team MemberRelationshipSpecialtyStart DateEnd Date Denny Rodríguez MD [address] [place] [address] PCP - [facility] Rkuwpxtzhb73/1/21 Denny Rodríguez MD [address] [place] [address] PCP - GeneralFanely Medicine04/10/23 Denny Rodríguez MD [address] [place] [address] PCP - [facility]02/24/23 [facility] NP [address] [place] [address] Nurse [facility]10/05/23 Trista Thao NP [address] [place] [address] Nurse PractitionerPulmonary Sfywnuu16/10/23Team MemberRelationshipSpecialtyStart DateEnd Date Denny Rodríguez MD [address] [place] [address] PCP - GeneralFamily Medicine12/03/14Team MemberRelationshipSpecialtyStart DateEnd Date Denny Rodríguez MD [address] [place] [phone] PCP - [facility]Unity[facility] Medicine12/03/14Team MemberRelationshipSpecialtyStart DateEnd Date Denny Rodríguez MD [address] [place] [id number] PCP - [facility] Fewcbnrycd06/1/21 Denny Rodríguez MD [address] [place] [facility]70 PCP - [facility]02/24/23 Eliceo Beltran DO [address] [place] [address] PCP - Generalmily Medicine02/14/24Team MemberRelationshipSpecialtyStart DateEnd Date Denny Rodríguez MD [address] [place] [address] PCP - [facility] Atrzqcvjfr86/1/21 Denny Rodríguez MD [address] [place] [address] PCP - [facility]02/24/23 Eliceo Beltran DO [address] [place] [address] PCP - [facility] Medicine02/14/24Team MemberRelationshipSpecialtyStart DateEnd Date Denny Rodríguez MD [address] [place] [address] PCP - [place] Ejjyglbbre23/1/21 Denny Rodríguez MD [address] [place] [address] PCP - [facility]02/24/23 Eliceo Beltran DO [address] [place] [address] PCP - [facility]02/14/24Team MemberRelationshipSpecialtyStart DateEnd Date Denny Rodríguez MD [address] [place] [address] PCP - [place] Hkbthrwesl41/1/21 Denny Rodríguez MD [address] [place] [address] PCP - [facility]02/24/23 Eliceo Beltran DO [address] [place] [address] PCP - [facility]02/14/24Team MemberRelationshipSpecialtyStart DateEnd Date Denny Rodríguez MD [address] [place] [address] PCP - [facility] Ezvqwgdgpi21/1/21 Denny Rodríguez MD [address] [place] [address] PCP - [facility]02/24/23 Eliceo Beltran DO [address] [place] [address] PCP - GeneralFamily Medicine02/14/24Team MemberRelationshipSpecialtyStart DateEnd Date Denny Rodríguez MD [address] [place] [address] PCP - [facility] Rmdedgjoqh67/1/21 Eliceo Beltran DO [address] [place] [address] PCP - Generalmily Medicine02/14/24Team MemberRelationshipSpecialtyStart DateEnd Date Eliceo Beltran DO [address] [place] [address] PCP - GeneralFamily Medicine02/14/24Team MemberRelationshipSpecialtyStart DateEnd Date Eliceo Beltran DO [address] [place] [address] PCP - Generalmily Medicine02/14/24 Team Status: Active Member Role Status Dates Denny Rodríguez MD Primary Care Provider Active Team Status: Inactive Member Role Status Dates Denny Rodríguez MD Primary Care Provider Active S tart: February 02, 2025 End: February 02aminta Pop DOAttending ProviderActiveStart: February 02, 2025 End: February 02, 2025Team MemberRelationshipSpecialtyStart DateEnd Date Eliceo Beltran DO [address] [place] [address] PCP - [facility] Medicine02/14/24 Eliceo Beltran DO [address] [place] [address] PCP - [facility] [employer]07/27/2412Team MemberRelationshipSpecialty Start DateEnd Date Eliceo Beltran DO [address] [place] [address] PCP - [facility] Medicine02/14/24 Eliceo Beltran DO [address] [place] [address] PCP - [facility] [employer]07/27/2412Team MemberRelationshipSpecialty Start DateEnd Date Eliceo Beltran DO [address] [place] [address] PCP - [facility] Medicine02/14/24 Eliceo Beltran DO [address] [place] [address] PCP - [facility] [employer]07/27/2412Team MemberRelationshipSpecialty Start DateEnd Date Eliceo Beltran DO [address] [place] [address] PCP - [facility] Medicine02/14/24 Eliceo Beltran DO [address] [place] [address] PCP - [facility] [employer]07/27/2412Te MemberRelationshipSpecialty Start DateEnd Date Eliceo Beltran, DO [address] [place] [address] PCP - [facility] Medicine02/14/24 Eliceo Beltran, DO [address] [place] [address] PCP - [facility] [employer]07/27/2412Team MemberRelationshipSpecialty Start DateEnd Date Eliceo Beltran, DO [address] [place] [address] PCP - [facility] Medicine02/14/24 Eliceo Beltran, DO [address] [place] [address] PCP - [facility] [employer]07/27/2412Team MemberRelationshipSpecialty Start DateEnd Date Eliceo Beltran, DO [address] [place] [address] PCP - [facility] Medicine02/14/24 Eliceo Beltran, DO [address] [place] [address] PCP - [facility] [employer]07/27/2412Te MemberRelationshipSpecialty Start DateEnd Date Eliceo Beltran, DO [address] [place] [address] PCP - Generalmily Medicine02/14/24 Eliceo Beltran, [address] [place] [address] PCP - [facility] [employer]07/27/2412Team MemberRelationshipSpecialty Start DateEnd Date Eliceo Beltran DO [address] [place] [address] PCP - [facility] Medicine02/14/24 Eliceo Beltran, [address] [place] [address] PCP - [facility] [employer]07/27/2412Team MemberRelationshipSpecialty Start DateEnd Date Eliceo Beltran DO [address] [place] [address] PCP - [facility] Medicine02/14/24 Eliceo Beltran DO [address] [place] [address] PCP - [facility] [employer]07/27/2412Team MemberRelationshipSpecialty Start DateEnd Date Eliceo Beltran DO [address] [place] [address] PCP - [facility] Medicine02/14/24 Eliceo Beltran DO [address] [place] [address] PCP - [facility] [employer]07/27/2412Team MemberRelationshipSpecialty Start DateEnd Date Denny Rodríguez MD [address] [place] [address] PCP - [facility] Medicine12/02/18 MemberRelationshipSpecialtyStart DateEnd Date Denny Rodríguez MD [address] [place] [address] PCP - [facility] Medicine12/02/18 MemberRelationshipSpecialtyStart DateEnd Date Eliceo Beltran, DO [address] [place] [address] PCP - [facility]02/14/24 Eliceo Beltran, DO [address] [place] [address] PCP - [facility] [employer]07/27/2412Te MemberRelationshipSpecialty Start DateEnd Date Eliceo Beltran, DO [address] [place] [address] PCP - [facility]02/14/24 Eliceo Beltran, DO [address] [place] [address] PCP - [facility] [employer]07/27/2412Te MemberRelationshipSpecialty Start DateEnd Date Eliceo Beltran, DO [address] [place] [address] PCP - [facility]02/14/24 Eliceo Beltran, DO [address] [place] [address] PCP - [facility] [employer]07/27/2412Team MemberRelationshipSpecialty Start DateEnd Date Eliceo Beltran DO [address] [place] [address] PCP - GeneralFamily Medicine02/14/24 Eliceo Beltran DO [address] [place] [address] PCP - [facility] [employer]07/27/2412Team MemberRelationshipSpecialty Start DateEnd Date Denny Rodríguez MD [address] [place] [address] PCP - GeneralFamily Medicine12/02/18Team MemberRelationshipSpecialtyStart DateEnd Date Eliceo Beltran DO [address] [place] [address] PCP - GeneralFamily Medicine02/14/24 Eliceo Beltran DO [address] [place] [address] PCP - [facility] [employer]07/27/2412Team MemberRelationshipSpecialty Start DateEnd Date Eliceo Beltran DO [address] [place] [address] PCP - GeneralFamily Medicine02/14/24 Eliceo Beltran DO [address] [place] [address] PCP - [facility] [employer]07/27/2412Team MemberRelationshipSpecialty Start DateEnd Date Denny Rodríguez MD [address] [place] [address] PCP - Generalmily Medicine12/02/18Team MemberRelationshipSpecialtyStart DateEnd Date Denny Rodríguez MD [address] [place] [address] PCP - [facility]12/02/18Team MemberRelationshipSpecialtyStart DateEnd Date Eliceo Beltran DO [address] [place] [address] [facility]/14/[facility] Eliceo Beltran DO [address] [place] [address] PCP - [facility] [employer]07/27/2412Team MemberRelationshipSpecialty Start DateEnd Date Eliceo Beltran DO [address] [place] [address] PCP - [facility] Medicine02/14/24 Eliceo Beltran DO [address] [place] [address] PCP - [facility] [employer]07/27/2412Team MemberRelationshipSpecialty Start DateEnd Date Denny Rodríguez MD [address] [place] [address] [facility]12/02/18Team MemberRelationshipSpecialtyStart DateEnd Date Denny Rodríguez MD [address] [place] [address] PCP - GeneralFamily Medicine12/02/18Team MemberRelationshipSpecialtyStgreenwood DateEnd Date Denny Rodríguez MD [address] [place] [address] PCP - [facility] Jwjayxznvh31/1/ Denny Rodríguez MD [address] [place] [address] PCP - GeneralFamily Medicine Denny Rodríguez MD [address] [place] [address] PCP - [facility] Eliceo Beltran DO [address] [place] [address] PCP - [facility]02/14/24 Eliceo Beltran DO [address] [place] [address] PCP - [facility] [employer]07/27/2412 [facility] NP [address] [place] [address] Nurse PractitionerFamily Svgxmhpc90/10/235 Trista Thao NP [address] [place] [address] Nurse PractitionerPulmonary Pkalmdi91/10/235Team MemberRelationship SpecialtyStart DateEnd Date Eliceo Beltran DO [address] [place] [address] PCP - GeneralFamily Medicine02/14/24 Eliceo Beltran [address] [place] [address] PCP - [facility] [employer]07/27/2412Team MemberRelationshipSpecialty Start DateEnd Date Denny Rodríguez MD [address] [place] [address] PCP - GeneralFamily Medicine12/02/18 Source Comments (unrecognize d section and content) In the event this informatio n is protected by the Federal Confidentiality of Alcohol and Drug Abuse Patient Records regulations: The Federal rules restrict any use of the information to criminally investigate or prosecute any alcohol or drug abuse patient.[facility] the event this information is protected by the Federal Confidentiality of Alcohol and Drug Abuse Patient Records regulations: The Federal rules restrict any use of the information to criminally investigate or prosecute any alcohol or drug abuse patient.[facility]igh[facility] the event this information is protected by the Federal Confidentiality of Alcohol and Drug Abuse Patient Records regulations: The Federal rules restrict any use of the information to criminally investigate or prosecute any alcohol or drug abuse patient.[facility]igh[facility] the event this information is protected by the Federal Confidentiality of Alcohol and Drug Abuse Patient Records regulations: The Federal rules restrict any use of the information to criminally investigate or prosecute any alcohol or drug abuse patient.[facility]ighIn the event this information is protected by the Federal Confidentiality of Alcohol and Drug Abuse Patient Records regulations: The Federal rules restrict any use of the information to criminally investigate or prosecute any alcohol or drug abuse patient.[facility]ighIn the event this information is protected by [...] or prosecute any alcohol or drug abuse patient.[facility]ighIn the event this information is protected by the Federal Confidentiality of Alcohol and Drug Abuse Patient Records regulations: The Federal rules restrict any use of the information to criminally investigate or prosecute any alcohol or drug abuse patient.[facility]ighIn the event this information is protected by the Federal Confidentiality of Alcohol and Drug Abuse Patient Records regulations: The Federal rules restrict any use of the information to criminally investigate or prosecute any alcohol or drug abuse patient.[facility]ighIn the event this information is protected by the Federal Confidentiality of Alcohol and Drug Abuse Patient Records regulations: The Federal rules restrict any use of the information to criminally investigate or prosecute any alcohol or drug abuse patient.[facility]ighIn the event this information is protected by the Federal Confidentiality of Alcohol and Drug Abuse Patient Records regulations: The Federal rules restrict any use of the information to criminally investigate or prosecute any alcohol or drug abuse patient.[facility]ighIn the event this information is protected by the Federal Confidentiality of Alcohol and Drug Abuse Patient Records regulations: The Federal rules restrict any use of the information to criminally investigate or prosecute any alcohol or drug abuse patient.[facility]ighIn the event this information is protected by the Federal Confidentiality of Alcohol and Drug Abuse Patient Records regulations: The Federal rules restrict any use of the information to criminally investigate or prosecute any alcohol or drug abuse patient.[facility]ighIn the event this information is protected by the Federal Confidentiality of Alcohol and Drug Abuse Patient Records regulations: The Federal rules restrict any use of the information to criminally investigate or prosecute any alcohol or drug abuse patient.[facility]ighIn the event this information is protected by the Federal Confidentiality of Alcohol and Drug Abuse Patient Records regulations: The Federal rules restrict any use of the information to criminally investigate or prosecute any alcohol or drug abuse patient.[facility] Reason for Visit (unrecogniz ed section and content) ReasonCommentsMenstrual ProblemReasonCommentsVaginal BleedingReasonComments EndometriosisReasonCommentsInsurance AuthorizationOrilissaReasonCommentsPelvic PainSpecialtyDiagnoses / ProceduresReferred By ContactReferred To ContactOB/DIRECTOR OF THERAPY SERVICES / GYNECOLOGY Diagnoses Painful menstrual periods Painful Periods Procedures OFFICE/OUTPATIENT ESTABLISHED SF MDM 10-19 MIN EST WHI PATIENT Jihan Downs, WORK COUNSELOR.PATTERN CARRIER [address] [place] [id number] Jihan Downs, WORK COUNSELOR.PATTERN CARRIER [address] [place] [id number] Referral IDStatusReasonStart DateExpiration DateVisits RequestedVisits [id number]/25/202312/[id number] MRI SpecialtyDiagnoses / ProceduresReferred By ContactReferred To ContactMR IMAGING Diagnoses Pelvic and perineal pain Procedures MRI FEMALE PELVIS WO/W IVCON MRI PELVIS W/O & W/CONTRAST MATERIAL Charlene Rodriguez DO [address] [facility] [address] [place] [address] Mr Imaging [place] [address] Referral IDStatusReasonStart DateExpiration DateVisits RequestedVisits [id number] Auto-Generated Referral /[id number] DateCommentsRefill Iijluha2201/02/2024eason CommentsMenorrhagiaCramping with bleedingReasonCommentsSurgery Cancelled SpecialtyDiagnoses / ProceduresReferred By ContactReferred To Contact Diagnoses Preeclampsia, severe, third trimester Procedures O14.13 - Preeclampsia, severe, third trimester Kathe Ryder, [address] [place] [address] [facility] [address] [place] [address] Referral IDStatusReasonStart DateExpiration DateVisits RequestedVisits [id number] Pressure CheckReasonCommentsDysmenorrhea ReasonCommentsWell Women VisitReasonCommentsShoulder PainReasonCommentsPainful IntercourseReasonCommentsAmenorrheaReasonCommentsRoutine VisitReason CommentsGestational DiabetesSpecialtyDiagnoses / ProceduresReferred By Contact Referred To ContactMaternal and Medicine Diagnoses Gestational diabetes mellitus (GDM) in second trimester, gestational diabetes method of control unspecified Nathan Pop, DO [address] [place] [address] [place] [address] Phone: tel: fax: Maternal- Medicine at [facility] [address] [place] [address] Phone: tel: fax: Referral IDStatusReasonStart DateExpiration DateVisits RequestedVisits [id number] Review Specialty Services Required /[id number] consult Scheduled Active and Recently Administ ered [...] every 2-3 minutes with cervical changes or [place] units (MVU) greater than 200 in a [...] hours PRN, mild pain (1-3), Starting on Cnostance 11/30/22 at 0422, Give in addition to [...] BE BASED ON THE PRIMARY CLINICAL RECORDS. [employer] provides no warranty or guarantee of the accuracy or completeness of information in this document.
--- OUTSIDE RECORDS SUMMARY | 2025-10-12 18:59 | XMS_ITS | Encounter Summary ---
Author Organization [facility] CenterStylehive [facility] tem Address [id number] [address] [place] [address] Care Team Providers Care Customs Examiner Name Role Phone Cruz Rodríguez MD Primary Care Provider [phone] Reason for Referral * Diagnostic Imaging (Routine) [...] with or without consult Nathan Pop DO [address] [place] [address] [place] [address] Phone: tel: fax: Maternal- Medicine at [facility] [address] [place] [address] Phone: tel: fax: Referral IDStatusReasonStart DateExpiration DateVisits RequestedVisits [id number] Hfnwht14 Encounter Details DateTypeDepartmentCare Team (Latest Contact Info)Pleudtobkbx05/13/2025Orders Only Maternal Medicine [place] [address] [place] [phone] Danae Ramirez RN Insulin controlled gestational diabetes [...] or more drinks on one occasion?Never5ChildcareAnswer Date QihljuxvNwsrpjzwaShdpnmy06/13/2019EmploymentAnswerDate RecordedEmployment Kbckopx8705/08/2019Hunger ScreeningAnswerDate RecordedWithin the past 12 months we worried whether our food would run out before we got money to buy more.Never True09/10/2025Within the past 12 months the food we bought just didn't last and we didn't have money to get more.Never True09/10/2025Purpose - LifeAnswerDate RecordedPurpose and direction in ztkgEagteiv00/11/2021Estimated Date of LqldkxclCdfwxdtsKkk16/03/2026Based on last menstrual period of 02/21/2025 (Exact Date)Sex and Gender InformationValueDate RecordedSex Assigned at BirthNot on fileLegal IrvCeadmq18/07/2019 2:55 PM ESTGender IdentityNot on fileSexual OrientationNot on filedocumented as of this encounter Plan of Treatment DateTypeDepartmentCare Team (Latest Contact Info)Uoixwkndbxi16/03/2025 11:00 AM ESTAppointment Maternal Medicine [place] [address] [place] [address] 11/03/2025 2:30 PM ESTOffice Visit Maternal- Medicine at [facility] [address] [place] [phone] Kayleigh Rizzo PA-C [address] [address] NameTypePriorityAssociated DiagnosesOrder ScheduleUS MFM with or without [...] Cruz Rodríguez MD [address] [place] [address] PCP - GeneralFamily Medicine12/02/18documented as of this encounter
--- OUTSIDE RECORDS SUMMARY | 2025-10-12 19:00 | XMS_ITS | Encounter Summary ---
Author Organization [facility] Address [address] [place] [address] Care Team Providers Care Target Setter Name Role Phone Eliceo Beltran DO Primary Care Provider [phone] CharlottecarolEliceo Unavailable [phone] Encounter Details DateTypeDepartmentCare Team (Latest Contact Info)Fbwaknvribk16/05/2025amboo flowsheet [facility] [place] [facility] [address] [place] [phone] Nathan Pop DO [address] [facility] [address] [place], [place] [address] Social History Tobacco UseTypesPacks/DayYears UsedDateSmoking Tobacco: NeverSmokeless Tobacco: NeverAlcohol UseStandard Drinks/WeekCommentsNever0 (1 standard drink = 0.6 oz pure alcohol)caffeine: 1-2 cups per day, coffee and gdxC4389 Health Literacy AnswerDate RecordedHow often do you [...] week12/29/2024How often do you attend gnosticist or shinto services?Patient hhngwawj31/03/2025Do you belong to any clubs or organizations such as gnosticist groups, unions, [employer] or athletic leodan ups, or school groups?No12/29/2024How often do you attend meetings of the clubs or organizations you belong to?Patient gdzewcid34/03/2025re you , , , , never , [...] hard at all12/29/2024PHQ-2AnswerDate RecordedPatient Health Questionnaire-2 Score0 07/30/2025[facility] [place] of Occupational Health - Occupational Stress QuestionnaireAnswerDate RecordedDo you feel stress - tense, restless, nervous, or anxious, or unable to sleep at night because yourmind is troubled all the time - these days?Only a kvufdk7012/29/2024Exercise Vital SignAnswerDate Recorded On average, how many [...] to sleep or slept in [facility] (including now)?No09/19/2023Housing Stability Vital SignAnswerDate RecordedIn [...] the highest degree you have received?High school vbogjhiw33/29/2023 Estimated Date of RgbydgmdZmhqzgbmCuv54/03/2026ased on last menstrual period of 02/21/2025Sex and Gender InformationValueDate RecordedSex Assigned at BirthNot on fileLegal TavQcxklo37/15/2023 7:18 PM EDTGender IdentityNot on file Sexual OrientationNot on 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 Not on fileNot on fileNot on filedocumented as of this encounter Plan of Treatment DateTypeDepartmentCare Team (Latest Contact Info)Racqtiejvnp40/19/2025 3:30 PM ESTRoutine [facility] [place] [facility] [address] [place] [phone] Nathan Pop DO [address] [facility] [place] [address] documented as of this encounter Visit Diagnoses Not on filedocumented in this encounter Care Teams Team MemberRelationshipSpecialtyStart DateEnd Date Eliceo Beltran DO [address] [address] PCP - GeneralFamily Medicine02/14/24 Eliceo Beltran DO [address] [place] [address] PCP - Medical [employer]07/27/2412documented as of this encounter
--- OUTSIDE RECORDS SUMMARY | 2025-10-12 19:01 | XMS_ITS | Patient Health Record ---
Author Organization [facility] Address [address] [place] [address] Care Team Providers Care Library Services Coordinator Name Role Phone Cruz Rodríguez Primary Care [...] Quad PFS (0.5mL Admin) 18 y/o & gbqjtZbxvghi51/30/5177Tdmfusvk5146 Fluzone Quad PFS (0.5mL Admin) 6 months & qdqslFsxppuk94/17/7514Pfauujor1293 Fluzone, 6mo & older, Quad MDV (0.5mL Admin)Pjxytfq6607/16/20231466Jxihzyzm9035 Fluzone, 6mo & older, Quad PFS (0.5mL Admin)Dgnffuh30/18/2023Contraindications z2023 Fluzone, 6mo & older, Quad PFS (0.5mL Admin)Oxsayjc14/20/2024Refused Social History Tobacco Use: Social History Observation [...] Status W/U Status Risk Notes Problem Tachycardia (9519471) Tachycardia (R00.0) ActiveconfirmedProblemObesity (236240498)Obesity (BMI 30-39.9) (E66.9)Active confirmed Plan Of Treatment No Information Insurance Providers Payer Name Payer Address Payer Phone Subscriber Number Group Number Insured Name Patient Relationship to Insured Coverage Start Date Coverage End Date [facility] [address] [place] [address] [id number] Driss Woodruff Self - patient is the insured Medical [place] [facility] [address] [place] [phone] [id number], AlexisSelf - patient is the insured Medical (General) History Medical History History ICD Code Tachycardia R00.0 Surgical History Surgery Date(Month/Year) right shoulder surgery endometriosisappendectomyHospitalization History Reason Date(Month/Year) surgeries childbirth
--- OUTSIDE RECORDS SUMMARY | 2025-10-12 19:01 | XMS_ITS | Encounter Summary ---
Author Organization [facility] Address [address] [place] [address] Care Team Providers Care Gardening Manager Name Role Phone Eliceo Beltran DO Primary Care Provider [phone] CharlottegeovaniEliceo kauffman Unavailable [phone] Encounter Details DateTypeDepartmentCare Team (Latest Contact Info)Iltwfqcssmn87/08/2025Clinisync Result Encounter [facility] External Department Unsolicited Steph Keane, DEVYN [address] [facility] [place] [address] Social History Tobacco UseTypesPacks/DayYears UsedDateSmoking Tobacco: NeverSmokeless Tobacco: NeverAlcohol UseStandard Drinks/WeekCommentsNever0 (1 standard drink = 0.6 oz pure alcohol)caffeine: 1-2 cups per day, coffee and dscR2621 Health Literacy AnswerDate RecordedHow often do you [...] week12/29/2024How often do you attend scientology or sabianism services?Patient dytrqbkn33/03/2025Do you belong to any clubs or organizations such as scientology groups, unions, [employer] or athletic leodan ups, or school groups?No12/29/2024How [...] Health Questionnaire-2 Score0 07/30/2025[facility] [place] of Occupational Health - Occupational Stress QuestionnaireAnswerDate RecordedDo you feel stress - tense, restless, nervous, or anxious, or unable to sleep at night because yourmind is troubled all the time - these days?Only a zniaci8812/29/2024Exercise Vital SignAnswerDate Recorded On average, how many [...] steady place to sleep or slept in [facility] (including now)?No09/19/2023Housing Stability Vital SignAnswerDate [...] the highest degree you have received?High school tblgpymv88/29/2023 Estimated Date of VclfbfroYtrvtlewGsv15/03/2026ased on last menstrual period of 02/21/2025Sex and Gender InformationValueDate RecordedSex Assigned at BirthNot on fileLegal ChdQftomd17/15/2023 7:18 PM EDTGender IdentityNot on file Sexual OrientationNot on 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 Not on fileNot on fileNot on filedocumented as of this encounter Plan of Treatment DateTypeDepartmentCare Team (Latest Contact Info)Uojrianlbiw95/19/2025 3:30 PM ESTRoutine [facility] [place] [facility] [address] [place] [phone] Nathan Pop, DO [address] [facility] [address] [place], [facility]11 documented as of this encounter Procedures Procedure NamePriorityDate/TimeAssociated DiagnosisCommentsUS OB BPP W NON-GDUHET2010/03/2025 11:36 AM EST documented in this encounter Results * US OB BPP W NON-STRESS (10/03/2025 11:36 AM EST)Anatomical Region LateralityModalityOtherSpecimen (Source)Anatomical Location / Laterality Collection Method / VolumeCollection TimeReceived Time10/03/2025 11:36 AM EST Narrative 10/03/2025 11:38 AM EST [facility] ?[address] ? [place] [address] ? Ultrasound Report ? Signed ? Patient: DRISS GAMA ?MR#: [id number] ?? : 1995 ?Acct:[id number] ?? Age/Sex: 30 / F ?ADM Date: 10/03/25 ?? Loc: US ? Attending Dr: Steph Keane ? Ordering Physician: Steph Keane ?? Date of Service: 10/03/25 ?? Procedure(s): US OB BPP w non-stress ?? Accession Number(s): [id number] ? cc: Steph Keane; Yomaira BELTRAN ? [facility] ? [address] ? [place] [address] ? Patient Name: ?? DRISS Sanchez JAYY ? MRN: [id number] ? date: 1995 ?Sex: F ?? Assigned Patient Location: [place] ?? Current Patient Location: ? Accession/Order Number: [id number] ?? Exam Date: 10/03/2025 ??10:53 ?Report Date: [...] Dictation Location: RADIO-PC-17 ? Electronically authenticated by: [id number] ??Y ?? Date: 10/03/2025 ??11:36 ? Dictated By: ?Will Faria M.D. ? Signed By: ?10/03/25 1138 ? DD/ 1136 ? TD/TT: ? Emergency Medicine Physician: Procedure Note Radiology, Radiologist, - 10/03/2025 [place] [address] Ultrasound Report Signed Patient: DRISS GAMA MMR#: [id number] : 1995Acct:[id number] Age/Sex: 30 / FADM Date: 10/03/25 Loc: US Attending Dr: Steph Keane Ordering Physician: Steph Keane Date of Service: 10/03/25 Procedure(s): US OB BPP w non-stress Accession Number(s): [id number] cc: Steph Keane; Yomaira BELTRAN The [address] [address] Patient Name: DRISS GAMA MRN: [id number] date: 1995 Sex: F Assigned Patient Location: [place] Current Patient Location: Accession/Order Number: [id number] Exam Date: 10/03/2025 10:53 Report Date: 10/03/2025 [...] Faria M.D. 10/03/2025 11:36 AM Dictation Location: [facility] App Electronically authenticated by: [id number] Y Date: 1:36 Dictated By: Will Faria M.D. Signed By:10/03/25 1138 DD/ 1136 TD/TT: Emergency Medicine Physician: Authorizing ProviderResult TypeResult StatusClintmelissa Lakhwinder NPCLINISYNC IMAGING Final Result documented in this encounter Visit Diagnoses Not on filedocumented in this encounter Care Teams Team MemberRelationshipSpecialtyStart DateEnd Date Eliceo Beltran DO [address] [place] [address] PCP - GeneralFamily Medicine02/14/24 Eliceo Beltran DO [address] [place] [address] PCP - Medical [place] [employer]/documented as of this encounter
--- OUTSIDE RECORDS SUMMARY | 2025-10-12 19:02 | XMS_ITS | Encounter Summary ---
Author Organization [employer] tem Address [place]-[id number] [place] [address] Care Team Providers Care Bag Machine Set Up Operator Name Role Phone Cruz Rodríguez MD Primary Care Provider [phone] Encounter Details DateTypeDepartmentCare Team (Latest Contact Info)Eethaoqebwo91/11/2025Travel Social History Tobacco UseTypesPacks/DayYears UsedDateSmoking Tobacco: NeverSmokeless Tobacco: NeverAlcohol UseStandard Drinks/WeekCommentsNo0 (1 standard drink = 0.6 oz pure alcohol)AUDIT-CAnswerDate RecordedQ1: How often do you have a drink containing alcohol?Never09/10/2025Q2: How many drinks containing alcohol do you have on a typical day when you are drinking?Patient does not drink09/10/2025Q3: How often do you have six or more drinks on one occasion?Never09/10/2025hildcareAnswer Date RwilygqaJndekfsduVllqnfh01/13/2019EmploymentAnswerDate RecordedEmployment Zfqmpbq0405/08/2019Hunger ScreeningAnswerDate RecordedWithin the past 12 months we worried whether our food would run out before we got money to buy more.Never True09/10/2025Within the past 12 months the food we bought just didn't last and we didn't have money to get more.Never True09/10/2025Purpose - LifeAnswerDate RecordedPurpose and direction in ejpmEpfqhra86/11/2021Estimated Date of AmswgoywWpusyzmaUua65/03/2026Based on last menstrual period of 02/21/2025 (Exact Date)Sex and Gender InformationValueDate RecordedSex Assigned at BirthNot on fileLegal MyhVzniti59/07/2019 2:55 PM ESTGender IdentityNot on fileSexual OrientationNot on filedocumented as of this encounter Plan of Treatment DateTypeDepartmentCare Team (Latest Contact Info)Rzhcqbknyuw76/03/2025 11:00 AM ESTAppointment Maternal Medicine [place] [address] [place] [address] 11/03/2025 2:30 PM ESTOffice Visit Maternal- Medicine at [facility] [address] [place] [phone] Kayleigh Rizzo, PA-C [address] [address] documented as of this encounter Visit Diagnoses Not on filedocumented in this encounter Care Teams Team MemberRelationshipSpecialtyStart DateEnd Date Cruz Rodríguez MD [address] [place] [address] PCP - GeneralFamily Medicine12/02/18documented as of this encounter
--- OUTSIDE RECORDS SUMMARY | 2025-10-12 19:02 | XMS_ITS | Clinical Summary ---
Author Organization [facility] Address [address] [place] [address] Care Team Providers Care Wire Setter Name Role Phone Eliceo Beltran DO Primary Care Provider [phone] Eliceo Beltran DO Unavailable [phone] Allergies No known active allergies Medications MedicationSigDispense QuantityRefillsLast FilledStart DateEnd DateStatus metoprolol succinate XL (Toprol-XL) 25 MG 24 hr tablet Indications:Hypertension, unspecified typeTake 1 tablet by mouth daily 90 tablet 5Active Vit-Fe Fumarate-FA ( Vitamins) 28-0.8 MG tablet Indications:, unspecified gestational age ([facility]),Encounter for supervision of normal first in first trimester ([facility])Take 1 tablet by mouth Daily 30 tablet 110/6Active Alcohol Swabs (Alcohol Prep Pad) 70 % pads Indications:Gestational diabetes mellitus (GDM), antepartum, gestational diabetes method of control unspecified([facility]),Elevated glucose tolerance test Apply 1 Pad topically Daily Use four times daily to check FSBS. 150 each 5Active Blood Glucose Monitoring Suppl (D-Care Glucometer) w/Device kit Indications:Gestational diabetes mellitus (GDM), antepartum, gestational diabetes method of control unspecified([facility]),Elevated glucose tolerance test1 kit Daily Use four [...] Inject 13 Units under the skin at sgcqmad76/21/2025Active Lancets Ultra Thin misc Indications:Gestational diabetes mellitus [...] atotal of 4times daily. 150 strip Expired mhnqzbzdlq-skdnfix-pzlhwdcz (Fiorinal) 50-325-40 MG capsule Take 1 capsule by mouth every 4 (four) hours if vuxbiv8809/16/2025Discontinued cetirizine (ZyrTEC) 10 MG tablet Take 10 mg by mouth in the morning.09/16/2025Discontinued Ferrous Sulfate (IRON PO) Take 1 tablet by mouth in the morning.09/16/2025Discontinued fluticasone (Flonase) 50 MCG/ACT nasal spray Administer 1 spray into affected nostril(s) in the morning.09/16/2025 Discontinued Active Problems ProblemNoted DateDiagnosed QfcsRhhdroez94/29/2373Eavvxiqeydo26/26/2024Obesity (BMI 30-39.9)02/19/2024cquired equinus deformity of foot03/29/2023isplacement of cervical intervertebral disc without xdxuxcjyts60/04/2023ysmenorrhea 03/29/20230973Dldaptzruwevf76/04/8258Gzubaidwdzhcg57/04/9062Lgobmiahygxu14/04/2023 Assessment & Plan (07/30/2025 4:00 PM EDT): Record Blood Pressures 2-4 times weekly and record. Return with readings at next appointment. Call with readings if sees significant changes Intractable migraine without aura and with status qfbvbjkymnn17/04/2023Migraines 03/29/2023hronic pelvic pain in kuzwhp4103/29/2023ain in female genitalia on pdemhfqhhdz56/04/2023ain on axnswetvoy25/04/2023anic takqakif11/04/2023 Patellofemoral disorders, left knee03/29/2023atellofemoral disorders, right knee03/29/2023osterior calcaneal crqfuvhmk25/04/2023Scapular dyskinesis 03/29/20233098Oudrtxucu38/04/2023Seasonal allergic rhinitis due to jipbpy8003/29/2023 Tachycardia, ztlihxuiwm13/04/2023Tension yoofujjt58/04/2023Vitamin B12 kiyvfrkmae92/04/2023Vitamin D /04/2023hronic right shoulder pain 03/29/2023Estimated Date of EppuvsajQecdfprePtb45/03/2026Based on last menstrual period of 02/21/2025 Encounters DateTypeDepartmentCare LnyjEtxlpqyuuor67/16/2025linisync Result Encounter [facility] External Department Unsolicited Jony Pop, 10/09/2025bstract [facility] [address] [place] [address] Jony Pop, DO 5Clinisync Result Encounter NOMS External Department Unsolicited Steph Keane NP 10/01/2025Telephone [facility] [address] [facility] [place] [address] Jony Pop, DO 09/30/2025 3:00 PM ESTRoutine [facility] Wallace [facility] [place] [address] Jony Pop, DO Third trimester ([facility]); 31 weeks gestation of ([facility]); Pre-eclampsia in third trimester ([facility])09/30/2025amboo flowsheet [facility] [place] [facility] [address] [place] [address] Jony Pop, DO 09/26/2025linisync Result Encounter NOMS External Department Unsolicited Steph Keane NP 09/23/20254339Xznsqe56/25/2025linisync Result Encounter NOMS External Department Unsolicited Steph Keane NP 09/16/2025 3:20 PM EDTRoutine [facility] [place] [facility] [address] [place] [address] Jony Pop, DO 29 weeks gestation of ([facility]); Third trimester ([facility]); Hypertension affecting , antepartum ([facility]); Gestational diabetes mellitus (GDM), antepartum, gestational diabetes method of control unspecified([facility])09/16/2025amboo flowsheet [facility] [place] [facility] [address] [place] [address] Jony Pop, DO 09/11/2025bstract [facility] [address] [place] [phone] Jony Pop, DO 09/09/20255251Iqaarz38/09/2025 3:50 PM EDTRoutine [facility] [address] [place] [phone] Steph Keane NP Hypertension affecting , antepartum ([facility]) (Primary Dx); 27 weeks gestation of ([facility]); Second trimester ([facility])09/03/2025linisync Result Encounter NOMS External Department Unsolicited Jony Pop, DO 09/03/2025amboo flowsheet [facility] [address] [place] [address] Steph Keane NP 09/02/20259676Uurpji09/04/2025linisync Result Encounter NOMS External Department Unsolicited Steph Keane, DEVYN 08/28/2025bstract [facility] [address] [place] [phone] Eliceo Beltran, DO 08/28/2025Telephone [facility] [address] [place] [address] Radha Rahman MA 08/27/2025 3:20 PM EDTRoutine [facility] [address] [place] [address] Steph Keane, DEVYN 26 weeks gestation of ([facility]); Second trimester ([facility]); induced hypertension, antepartum ([facility]); Gestational diabetes mellitus (GDM) in second trimester, gestational diabetes method of control unspecified ([facility])08/27/2025linisync Result Encounter NOMS External Department Unsolicited Steph Keane NP 08/27/2025linisync Result Encounter NOMS External Department Unsolicited Steph Keane NP 08/27/2025amboo flowsheet [facility] [address] [place] [address] Steph Keane NP 08/25/2025linisync Result Encounter NOMS External Department Unsolicited Provider, Generic External Data 08/20/2025bstract [facility] [address] [place] [address] Jony Ppo, DO 08/20/2025Telephone [facility] [address] [place] [address] Steph Keane, DEVYN 08/17/2025bstract [facility] [address] [place] [phone] Eliceo Beltran, DO 08/17/2025bstract [facility] [address] [place] [phone] Eliceo Beltran, DO 08/17/2025Telephone [facility] [address] [place] [address] [place] [address] Jony Pop, 08/12/2025 2:40 PM EDTRoutine [facility] [address] [place] [address] [place] [address] Jony Pop, DO 24 weeks gestation of ([facility]); Second trimester ([facility]); Elevated glucose tolerance test08/12/2025 2:00 PM EDTAncillary Procedure [facility] [address] [place] [address] [place] [address] Encounter for follow-up ultrasound of anatomy ([facility])08/12/2025Telephone [facility] [address] [place] [phone] Bill Gould LPN Rpthlau5608/12/2025bstract [facility] [address] [place] [address] Eliceo Beltran, DO 08/04/2025Telephone [facility] [address] [place] [address] Bill Gould LPN Kbvycop9107/30/2025 3:40 PM EDTOffice Visit [facility] [address] [place] [phone] Eliceo Beltran, DO Wellness examination (Primary Dx); Hypertension, unspecified type ; Lipid nosfpulbi38/04/2025amboo flowsheet [facility] [address] [place] [address] Eliceo Beltran, DO 07/30/20256647Afrlxu71/26/2025Telephone [facility] [address] [place] [phone] Jony Pop DO 07/15/2025 3:30 [place] [address] Jony Pop DO 20 weeks gestation of ([facility]); Second trimester ([facility]); Diabetes mellitus rdwedbgnj40/20/2025 2:30 PM EDTAncillary Procedure [facility] [address] [place] [address] Screening, , for anatomic survey ([facility])07/15/2025linisync Result Encounter NOMS External Department Unsolicited Jony Pop DO from Last 3 Months Immunizations ImmunizationAdministration DatesNext DueDTP / HiB08/01/1996,1995, 1995DTaP, Cztfdraqgyb55/08/2000,12/29/1997HPV, Rhalguwzhojy66/17/2014, 05/04/2014,2014Hep A, Adult09/11/2014,2014Hep B, Adolescent or Lklhtvlfy78/06/1996,1995,1995IPV05/03/2000Influenza, seasonal, injectable, preservative free09/11/2014MMR05/03/2000,08/01/1996Meningococcal JHK7U6004/03/2007OPV08/01/1996,1995,1995Tdap2014 Family History Medical HistoryRelationNameCommentsAnemiaFatherColon cancerFatherCancerMaternal GrandfatherbutchHypertensionMaternal GrandfatherbutchBreast cancerMaternal GrandmotherHypertensionMotherdarleneColon cancerPaternal GrandfatherRelationName StatusCommentsFatherDeceasedMaternal GrandfatherbutchMaternal GrandmotherMother darleneAlivePaternal GrandfatherPaternal GrandmotherAlive Social History Tobacco UseTypesPacks/DayYears UsedDateSmoking Tobacco: NeverSmokeless Tobacco: Never Tobacco Cessation:Counseling Given: Not Answered Alcohol UseStandard Drinks/WeekCommentsNever0 (1 standard drink = 0.6 oz pure alcohol)caffeine: 1-2 cups per day, coffee and sotO9706 Health LiteracyAnswer Date RecordedHow often do you [...] relatives?Once a week12/29/2024How often do you attend oriental orthodox or christianity services?Patient rvrxrbuu94/03/2025Do you belong to any clubs or organizations such as oriental orthodox groups, unions, fraternal or athletic leodan ups, or school groups?No12/29/2024How often do you attend meetings of the clubs or organizations you belong to?Patient plknyocv55/03/2025re you , , , , never , [...] hard at all12/29/2024PHQ-2AnswerDate RecordedPatient Health Questionnaire-2 Score0 07/30/2025FinPark[facility] - Occupational Stress QuestionnaireAnswerDate RecordedDo you feel stress - tense, restless, nervous, or anxious, or unable to sleep at night because yourmind is troubled all the time - these days?Only a tdrdlw7612/29/2024Exercise Vital SignAnswerDate Recorded On average, how many [...] steady place to sleep or slept in [facility] (including now)?No09/19/2023Housing Stability Vital SignAnswerDate [...] the highest degree you have received?High school tcgkfvuc37/29/2023 Estimated Date of SoxrobnqGkmtjtydTbm34/03/2026ased on last menstrual period of 02/21/2025Sex and Gender InformationValueDate RecordedSex Assigned at BirthNot on fileLegal FnuGhaqte59/15/2023 7:18 PM EDTGender IdentityNot on file Sexual OrientationNot on 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 Not on fileNot on fileNot on file Last Filed Vital Signs Vital SignReadingTime TakenCommentsBlood Znooyvai554/8211 3:04 PM EST Zxvuk463807/30/2025 3:36 PM VMJKtmymbdeuvs11.2 ??C (97.1 ??F)07/30/2025 3:36 PM EDTRespiratory Pzxz959112/23/2022 4:16 PM ESTOxygen Khcmsdcncz31%07/30/2025 3:36 PM EDTInhaled Oxygen Concentration--Prouzm65.3 kg (166 lb)09/30/2025 3:04 PM EST Pwmtav412.5 cm (5' 2 )07/30/2025 3:36 PM EDTBody Mass Index30.36007/30/2025 3:36 PM EDT Plan of Treatment DateTypeDepartmentCare Team (Latest Contact Info)Zdvrlppgrqn55/19/2025 3:30 PM ESTRoutine [facility] [address] [place] [address] Jony Pop, [address] [place] [address] Health MaintenanceDue DateLast DoneCommentsCOVID-19 Vaccine ( season) 2025Influenza Vaccine (#1)Pap Smear08/18/2027 08/18/2024, 08/15/2023, 06/20/2022, Additional history existsCervical Cancer Ybjcmruaj19/09/2028HPV/Lnfpom24neumococcal Vaccine: Pediatrics (0 to 5 Years) and At-Risk Patients (6 to 64 Years)Aged OutNo longer eligible based on patient's age to complete this topic Procedures Procedure NamePriorityDate/TimeAssociated DiagnosisCommentsUS OB BPP W NON-MPIJVL1010/11/2025 1:46 PM EST US OB BPP W NON-WSITOD5610/03/2025 11:36 AM EST POCT URINALYSIS DZPKMNKUAdbkbsz78/05/2025 3:13 PM EST Third trimester ([facility]) US OB BPP W NON-KFUNXA0609/26/2025 2:50 PM EDT US OB BPP W NON-BMNUVT4809/19/2025 12:17 PM EDT POCT URINALYSIS GUEEMDXBPrkjloa23/22/2025 4:09 PM EDT 29 weeks gestation of ([facility]) Third trimester ([facility]) ALL CBC WITH AUTO DGLXFzfkjow63/09/2025 5:15 PM EDT MHPT DTQFJQHPEHMbufkpn71/09/2025 5:15 PM EDT C[facility] AAWKYupnpfl43/09/2025 5:15 PM EDT SRMCOH PROTHROMBIN TIME INR W/O AWZXVzbcuwc05/09/2025 5:15 PM EDT [facility] HPQAapxvcv76/09/2025 5:15 PM EDT [facility] JPWEamqsww23/09/2025 5:15 PM EDT ALL URIC JHGKNgbbfim18/09/2025 5:15 PM EDT TBH FKGHVUDDPDVmrxzaz06/09/2025 5:15 PM EDT ALL TDUMgaftgi26/09/2025 5:15 PM EDT TBH URINE T PROTEIN CREAT LSSXJZcruzxf14/09/2025 5:05 PM EDT POCT URINALYSIS NQRMXAFCIijyhfd40/09/2025 4:26 PM EDT 27 weeks gestation of ([facility]) TBH TOTAL PROTEIN 24 HOUR GOVVBImpvaqn55/04/2025 8:00 AM EDT US OB BPP W NON-CAISDG9908/27/2025 6:02 PM EDT TBH URINE T PROTEIN CREAT VXCOPIhhveng73/02/2025 5:50 PM EDT CCF YOGQohwhkj38/02/2025 5:00 PM EDT CCF BPPMPvwpdfq20/02/2025 5:00 PM EDT SRMCOH PROTHROMBIN TIME INR W/O VSLOJjqtbps12/02/2025 5:00 PM EDT ALL CJVPovtgzx85/02/2025 5:00 PM EDT CCF GOFAkyqvzs79/02/2025 5:00 PM EDT ALL URIC QEWVJedvogv85/02/2025 5:00 PM EDT TBH QGNLZFHIUNBiwuvyq36/02/2025 5:00 PM EDT ALL FDCOglbyep66/02/2025 5:00 PM EDT ALL CBC WITH AUTO ZIGXKmmgvde48/02/2025 5:00 PM EDT POCT URINALYSIS XOIRMKYLNroeniu66/02/2025 3:53 PM EDT 26 weeks gestation of ([facility]) URINE CULTURE, HFXTIFAIgzrawp05/30/2025 8:10 AM EDT POCT URINALYSIS OGBGCILUVtashkx38/17/2025 2:39 PM EDT 24 weeks gestation of ([facility]) Second trimester ([facility]) US OB LIMITED 1+ HEGXKMJTkdvtgu98/17/2025 2:22 PM EDT Encounter for follow-up ultrasound of anatomy ([facility]) AFP, SERUM, OPEN SPINA OVWSMWOkgomcn36/20/2025 5:07 PM EDT POCT URINALYSIS MJKVAELRJojerqt28/20/2025 3:50 PM EDT 20 weeks gestation of ([facility]) Second trimester ([facility]) US OB 14+ WEEKS ANATOMY XZJFTvlzuem89/20/2025 3:26 PM EDT Screening, , for anatomic survey ([facility]) PAP WFUDEOujmkxn16/23/2024 12:00 AM EDTTHINPREP PAP AND HPV MRNA E6/E7 W/RFL HPV 16,18/47Voklzbk88/09/2023 4:00 PM EDT Well woman exam with routine gynecological exam from Last 3 Months or Most Recently Relevant to Health Maintenance Results * US OB BPP W NON-STRESS (10/11/2025 1:46 PM EST) Only the most recent of5 resultswithin the time period is included. Anatomical RegionLateralityModalityOtherSpecimen (Source)Anatomical Location / LateralityCollection Method / VolumeCollection TimeReceived Time10/11/2025 1:46 PM EST Narrative 10/11/2025 1:48 PM EST [facility] ?[address] ? [place] [address] ? Ultrasound Report ? Signed ? Patient: MCCONEGLY,DRISS M ?MR#: [id number] ?? : 1995 ?Acct:[id number] ?? Age/Sex: 30 / F ?ADM Date: 10/10/25 ?? Loc: [facility]O ? Attending Dr: Jony Pop D.O. ? Ordering Physician: Jony Pop D.O. ?? Date of Service: 10/10/25 ?? Procedure(s): US OB BPP w non-stress ?? Accession Number(s): [id number] ? cc: Jony Pop D.O.; Yomaira BELTRAN ? [facility] ? [address] ? [place] [address] ? Patient Name: ?? DRISS Sanchez JAYY ? MRN: [facility]:[id number] ? date: 1995 ?Sex: F ?? Assigned Patient Location: [facility]BC ?? Current Patient Location: [facility]O ?? Accession/Order Number: [id number] ?? Exam Date: 10/10/2025 ??10:49 ?Report Date: 10/11/2025 ??13:46 ? At the request of: ?? JONY ??KIESHA ??DO ? Procedure: ??US OB BPP w non-stress ? Ultrasound biophysical profile ? HISTORY: -induced hypertension ? Adequate breathing movement, gross body movement, tone and ?? amniotic fluid volume for total score of 8 out of 8. ??The amniotic fluid index ?? is 10.5cm within normal limits. ??The heart rate 141 bpm. ? US/US OB BPP w non-stress ?? IMPRESSION: Adequate ultrasound biophysical profile ? Impression dictated by: Jp Morillo M.D. ??10/11/2025 1:46 PM ? Dictation Location: RADIO-PC-20 ? Electronically authenticated by: [id number] ??Y ?? Date: 10/11/2025 ??13:46 ? Dictated By: ?Jp Morillo D.O. ? Signed By: ?10/11/25 1348 ? DD/ 1346 ? TD/TT: ? File Drawer Finisher: Procedure Note Radiology, Radiologist, MD - 10/11/[address] [address] Ultrasound Report Signed Patient: DRISS GAMA MMR#: [id number] : 1995Acct:[id number] Age/Sex: 30 / FADM Date: 10/10/25 Loc: FBCO Attending Dr: Jony Pop D.O. Ordering Physician: Jony Pop D.O. Date of Service: 10/10/25 Procedure(s): US OB BPP w non-stress Accession Number(s): [id number] cc: Jony Pop D.O.; Yomaira BELTRAN The [place] [id number] Patient Name: DRISS GAMA MRN: [facility]:[id number] date: 1995 Sex: F Assigned Patient Location: [facility] Current Patient Location: [facility] Accession/Order Number: [id number] Exam Date: 10/10/2025 10:49 Report Date: 10/11/2025 13:46 At the request of: JONY POP DO Procedure: US OB BPP w non-stress Ultrasound biophysical profile HISTORY: -induced hypertension Adequate breathing movement, gross body movement, tone and amniotic fluid volume for total score of 8 out of 8. The amniotic fluidindex is 10.5cm within normal limits. The heart rate 141 bpm. US/US OB BPP w non-stress IMPRESSION: Adequate ultrasound biophysical profile Impression dictated by: Jp Morillo M.D. 10/11/2025 1:46 PM Dictation Location: [place] [address] Electronically authenticated by: [id number] Y Date: 3:46 Dictated By: Jp Morillo D.O. Signed By:10/11/25 1348 DD/ 134 TD/TT: File Drawer Finisher: Authorizing ProviderResult TypeResult StatusCorey Kiesha DOCLINISYNC IMAGINGFinal Result * POCT urinalysis dipstick manually resulted [...] Location / LateralityCollection Method / VolumeCollection TimeReceived RklzTdnxj15/05/2025 3:13 PM EST Narrative Authorizing ProviderResult TypeResult StatusCorey Kiesha DOPOINT OF CARE TEST ENTER/EDIT ORDERABLESFinal Result * (ABNORMAL) TB[facility] CREATININE (09/03/2025 5:15 PM EDT) Only the most recent of2 resultswithin the time period is included. ComponentValueRef RangeTest MethodAnalysis TimePerformed AtPathologist Signature CREATININE0.42(L)0.55 - 1.02 mg/dLTBHTBH EGFR-AF MOROCCAN>60>=60 mL/min/1.73m 2 TBHTBH EGFR-NON AF MOROCCAN>60>=60 mL/min/1.73m 2TBHSpecimen (Source)Anatomical Location / LateralityCollection Method [...] DOCLINISYNCFinal Result Performing OrganizationAddressCity/State/ZIP CodePhone Number [facility] * (ABNORMAL) MHPT FIBRINOGEN (09/03/2025 5:15 PM EDT)ComponentValueRef RangeTest MethodAnalysis TimePerformed AtPathologist RxibcebgzKCIQACXEHQ715(H)200 - 400 mg/dLTBHSpecimen (Source)Anatomical Location / LateralityCollection Method / VolumeCollection TimeReceived Time09/03/2025 5:15 PM EDT1 5:21 PM EDT Narrative CLINISYNC - 09/03/2025 5:45 PM EDT Authorizing ProviderResult TypeResult StatusCorey Kiesha DOCLINISYNCFinal Result Performing OrganizationAddressCity/State/ZIP CodePhone Number [facility] * [facility] AST (09/03/2025 5:15 PM EDT) Only the most recent of2 resultswithin the time period is included. ComponentValueRef RangeTest MethodAnalysis TimePerformed AtPathologist Signature ASPARTATE AMINO GAESSDZFRZT6384 - 37 U/LTBHSpecimen (Source)Anatomical Location / LateralityCollection [...] Kiesha DOCLINISYNCFinal Result Performing OrganizationAddressCity/State/ZIP CodePhone Number CLINISYAR TB * CCF ALT (09/03/2025 5:15 PM EDT) Only the most recent of2 resultswithin the time period is included. ComponentValueRef RangeTest MethodAnalysis TimePerformed AtPathologist Signature ALANINE CSRNGNLBLKTYCNWW4260 - 59 U/LTBHSpecimen (Source)Anatomical Location / LateralityCollection [...] - 35.2 g/dLTBHTBH RDW13.611.0 - 15.0 %TBHTBH AMP104411 - 450 10 3/uLTBHTBH MPV9.89.5 - 13.5 [...] OrganizationAddressCity/State/ZIP CodePhone Number CLINISYNC TBH * ALL BUN (09/03/2025 5:15 PM EDT) [...] RangeTest MethodAnalysis TimePerformed AtPathologist SignatureTOTAL PROTEIN URINE CLGCZX77.6(H)<=11.9 mg/dLTBHTOTAL VOLUME 24 HOUR QQTKA414oU/24hr TBHTBH TOTAL PROTEIN 24 HOUR BMJYR933.6<=149.1 mg/24hrTBHSpecimen (Source) Anatomical Location / LateralityCollection Method / VolumeCollection Time Received Time08/29/2025 8:00 AM EDT1 10:35 AM EDT Narrative CLINISYAR - 08/29/2025 12:08 PM EDT Authorizing ProviderResult TypeResult StatusGeneric External Data Provider CLINISYNCFinal ResultPerforming OrganizationAddressCity/State/ZIP CodePhone Number [facility] * ALL LDH (08/27/2025 5:00 PM EDT)ComponentValueRef RangeTest MethodAnalysis TimePerformed AtPathologist SignatureLACTATE JAVYSBUBHAFQI44147 - 234 U/LTBH Specimen (Source)Anatomical Location / LateralityCollection Method / Volume Collection TimeReceived Time08/27/2025 5:00 PM EDT1 5:01 PM EDT Narrative CLINISYAR - 08/27/2025 5:19 PM EDT Authorizing ProviderResult TypeResult StatusKristina Lakhwinder NPCLINISYNCFinal ResultPerforming OrganizationAddressCity/State/ZIP CodePhone Number [facility] * URINE CULTURE, ROUTINE (08/25/2025 8:10 AM EDT)ComponentValueRef RangeTest MethodAnalysis TimePerformed AtPathologist SignatureURINE CULTURE, ROUTINE ??Urine Culture, Routine TBHURINE CULTURE, ROUTINEMixed urogenital floraTBHURINE CULTURE, THKLFAS60,000- 50,000 colony forming units per mLTBHURINE CULTURE, ROUTINEPerformed at: - [facility] CenterTBHURINE CULTURE, [id number] [place], [place] [id number] URINE CULTURE, ROUTINELab Director: Cm Sandoval PhD, Phone: [phone] Specimen (Source)Anatomical Location / LateralityCollection Method / Volume Collection TimeReceived Time08/25/2025 8:10 AM EDT08/25/2025 8:30 AM EDT Narrative CLINISYAR - 08/26/2025 10:07 PM EDT Authorizing ProviderResult TypeResult StatusGeneric External Data ProviderLAB BLOOD ORDERABLESFinal ResultPerforming OrganizationAddressty/State/[facility] Code Phone Number CLINISYNC H * US OB limited 1+ fetuses (08/12/2025 [...] within 10 days. MATERNAL AGE AT EDD30.7. yrTBHRACECaucasian.PAIRXFHAG236. lbsTBHINSULIN DEP DIABETESNo.TBHMULTIPLE GESTATIONNo.TBHAFP VALUE59.2. ng/mLTBHAFP MOM0.95.TBHOSBR RISK 1 BG77596.TBHINTERPRETATIONComment.TBHComment: Interpretation: Screen Negative This result is screen [...] Customer Services to discuss available options. ??The [place] recommends amniocentesis be offered to women age 35 and older. COMMENT:Comment.TBHComment: Amy Ramos, Ph.D., [facility] Director References: Available Upon Request. Multiples Of Median Cutoffs ?For AFP Elevations Hsieh ?? 2.5 ? Black ?2.8 IDD ? 2.0 ? Twins ?4.5 ?Abbreviation Definitions IDD - Insulin Dep Diabetes OSBR - Open Spina Bifida Risk For further inquiries contact [employer] [facility] at [phone]. This test was developed and its performance characteristics determined by [employer]. It has not been cleared or approved by the Food and Drug Administration. Performed at: ??[facility] [place], [place] ??[id number] Storekeeper Helper: Dona [facility], Phone: ??[phone] Specimen (Source)Anatomical Location / LateralityCollection Method / Volume Collection TimeReceived Time07/15/2025 5:07 PM EDT07/15/2025 5:10 PM EDT Narrative [facility] - 07/18/2025 1:07 AM EDT N N LMP [id number] 2 17 N 1 Y 146 N N N N N White/ Authorizing ProviderResult TypeResult StatusGeneric External Data ProviderLAB BLOOD ORDERABLESFinal ResultPerforming OrganizationAddressCity/State/ZIP Code Phone Number [facility] * US OB 14+ weeks anatomy scan [...] ?? , PHD at 16-Jul-2025 08:07:07 AM [facility] Procedure Note Travis Rueda MD - [...] TRAVIS RUEDA II, MD, PHD 08:07:07 AM [facility] Authorizing ProviderResult TypeResult StatusCorey Kiesha DOIMG OB US PROCEDURES Final Result * Pap Smear (08/18/2024 12:00 AM EDT)Specimen (Source)Anatomical Location / LateralityCollection Method / VolumeCollection TimeReceived TimeSwabCervical swab / Unknown Narrative Authorizing ProviderResult TypeResult StatusFazio Nurse [facility] ObLAB CYTOLOGY ORDERABLESFinal ResultPerforming OrganizationAddressCity/State/ZIP CodePhone Number [...] DO [address] [place], [place] [id number] PCP - GeneralFamily Medicine02/14/24 Eliceo Beltran DO [address] [place] [address] PCP - [facility]07/27/2412
--- OUTSIDE RECORDS SUMMARY | 2025-10-12 19:03 | XMS_ITS | Encounter Summary ---
Author Organization [facility] tem Address [facility]-[id number] [address] [place] [address] Care Team Providers Care Rod Pointer Name Role Phone Cruz Rodríguez MD Primary Care Provider [phone] Encounter Details DateTypeDepartmentCare Team (Latest Contact Info)Laugpdhwfkb80/10/2025Telephone Maternal- Medicine at [facility] [address] [facility] [place] [address] Anjana Davalos RN Social History Tobacco UseTypesPacks/DayYears [...] or more drinks on one occasion?Never5ChildcareAnswer Date QqmblozhLfdansaqmWxqsdya95/13/2019EmploymentAnswerDate RecordedEmployment Lfggkrx4405/08/2019Hunger ScreeningAnswerDate RecordedWithin the past 12 months we worried whether our food would run out before we got money to buy more.Never True09/10/2025Within the past 12 months the food we bought just didn't last and we didn't have money to get more.Never True09/10/2025Purpose - LifeAnswerDate RecordedPurpose and direction in cmwuPfixfsv35/11/2021Estimated Date of NupatjcnKqbttmnoJmk38/03/2026Based on last menstrual period of 02/21/2025 (Exact Date)Sex and Gender InformationValueDate RecordedSex Assigned at BirthNot on fileLegal KgjAhtiyw39/07/2019 2:55 PM ESTGender IdentityNot on fileSexual OrientationNot on filedocumented as of this encounter Miscellaneous Notes * Telephone Encounter - Anjana Davalos RN - 10/05/2025 2:39 PM EST Left message for patient to send in blood sugar logs prior to video visit toady in [facility] at 3 PM. Also, Instructed patient to contact [facility] if unable to keep appointment today at [facility], then to call at [phone] option 1 to reschedule. documented in this encounter Plan of Treatment DateTypeDepartmentCare Team (Latest Contact Info)Jarvlmzbyrp54/03/2025 11:00 AM ESTAppointment Maternal Medicine [place] [address] [place] [address] 11/03/2025 2:30 PM ESTOffice Visit Maternal- Medicine at [facility] [address] [place] [address] Kayleigh Rizzo PA-C [address] [address] documented as of this encounter Visit Diagnoses Diagnosis Insulin controlled gestational diabetes mellitus (GDM) in second trimester documented in this encounter Care Teams Team MemberRelationshipSpecialtyStart DateEnd Date Cruz Rodríguez MD [address] [place] [address] PCP - GeneralFamily Medicine12/02/18documented as of this encounter
--- OUTSIDE RECORDS SUMMARY | 2025-10-12 19:04 | XMS_ITS | Encounter Summary ---
Author Organization [employer] tem Address [facility]-[id number] [address] [place] [address] Care Team Providers Care Singe Winder Name Role Phone Cruz Rodríguez MD Primary Care Provider [phone] Encounter Details DateTypeDepartmentCare Team (Latest Contact Info)Ggoqqeauqxu90/09/2025Travel Social History Tobacco UseTypesPacks/DayYears UsedDateSmoking Tobacco: NeverSmokeless Tobacco: NeverAlcohol UseStandard Drinks/WeekCommentsNo0 (1 standard drink = 0.6 oz pure alcohol)AUDIT-CAnswerDate RecordedQ1: How often do you have a drink containing alcohol?Never09/10/2025Q2: How many drinks containing alcohol do you have on a typical day when you are drinking?Patient does not drink09/10/2025Q3: How often do you have six or more drinks on one occasion?Never09/10/2025hildcareAnswer Date QuxxhfvgIfwfdqfnmXcijekl07/13/2019EmploymentAnswerDate RecordedEmployment Qqocrwb7005/08/2019Hunger ScreeningAnswerDate RecordedWithin the past 12 months we worried whether our food would run out before we got money to buy more.Never True09/10/2025Within the past 12 months the food we bought just didn't last and we didn't have money to get more.Never True09/10/2025Purpose - LifeAnswerDate RecordedPurpose and direction in sfdvBcjdvyh03/11/2021Estimated Date of GcwqbfoiAxislclcWfl45/03/2026Based on last menstrual period of 02/21/2025 (Exact Date)Sex and Gender InformationValueDate RecordedSex Assigned at BirthNot on fileLegal EnvFpwlqf82/07/2019 2:55 PM ESTGender IdentityNot on fileSexual OrientationNot on filedocumented as of this encounter Plan of Treatment DateTypeDepartmentCare Team (Latest Contact Info)Cpnebfxtijg12/03/2025 11:00 AM ESTAppointment Maternal Medicine [place] [address] [place] [address] 11/03/2025 2:30 PM ESTOffice Visit Maternal- Medicine at [facility] [address] [place] [phone] Kayleigh Rizzo, PA-C [address] [address] documented as of this encounter Visit Diagnoses Not on filedocumented in this encounter Care Teams Team MemberRelationshipSpecialtyStart DateEnd Date Cruz Rodríguez MD [address] [place] [address] PCP - GeneralFamily Medicine12/02/18documented as of this encounter
--- OUTSIDE RECORDS SUMMARY | 2025-10-12 19:05 | XMS_ITS | Clinical Summary ---
Author Organization [employer] tem Address [id number] [address] [place] [address] Care Team Providers Care Woods Laborer Name Role Phone Cruz Rodríguez MD Primary Care Provider [phone] Allergies No known active allergies Medications MedicationSigDispense [...] ProblemNoted DateDiagnosed DateEssential hypertension affecting in third fvisnnijz24/10/2025Insulin controlled gestational diabetes mellitus (GDM) in third sclolaxxj36/26/2025Estimated Date of DeliveryCommentsYes 6Based on last menstrual period of 02/21/2025 (Exact Date) Encounters DateTypeDepartmentCare YpchMmbioojsopv57/14/2025Orders Only Maternal- Medicine at [address] [address] Zora Samuels, DIALLO Essential hypertension affecting in third trimester (Primary Dx); Insulin controlled gestational diabetes mellitus (GDM) in third trimester 10/08/2025Orders Only Maternal Medicine [place] [address] [facility] [address] [place] [address] Danae Ramirez, DIALLO Insulin controlled gestational diabetes mellitus (GDM) in third trimester (Primary Dx); Essential hypertension affecting in third trimester; Encounter for follow-up ultrasound of anatomy; History of pre-eclampsia in prior , currently ; Hx of delivery, currently , second fitjmtqre82/11/2025 2:30 PM ESTTelemedicine Maternal- Medicine at [address] [place] [address] Kayleigh Rizzo, PA-C Insulin controlled gestational diabetes mellitus (GDM) in third trimester (Primary Dx); Essential hypertension affecting in third vdqmhifzc76/11/2025Travel 10/05/2025Telephone Maternal- Medicine at [facility] [address] [place] [address] Anjana Davalos RN 10/04/20253002Sfwweb64/03/2025Telephone Maternal- Medicine at [facility] [address] [facility] [place] [address] Cha Harris, DIALLO 09/28/2025Orders Only Maternal- Medicine at [facility] [address] [place] [address] Kayleigh Rizzo, PA-C Essential hypertension affecting in third pfsgipaku16/27/2025Telephone Maternal- Medicine at [facility] [address] [place] [address] Verito Gudino LD 09/21/2025Remote Patient Monitoring Maternal- Medicine at [facility] [address] [place] [address] Kayleigh Rizzo, PA-C Insulin controlled gestational diabetes mellitus (GDM) in third trimester (Primary Dx); Essential hypertension affecting in third lsbhlgmvy92/23/2025Orders Only Maternal- Medicine at [facility] [address] [place] [address] Camila Arciniega, DISPATCHER SERVICE OR WORK-CNM Essential hypertension affecting in third /22/2025Telephone Maternal- Medicine at [facility] [address] [place] [address] Cha Harris, DIALLO 09/15/2025Orders Only Maternal- Medicine at [facility] [address] [place] [address] Kayleigh Rizzo, FORREST Essential hypertension affecting in third sfjzjiwby80/16/2025 11:00 AM EDTTelemedicine Maternal Medicine [place] [address] [facility] [place] [address] Madhuri Monroy MD 28 weeks gestation of (Primary Dx); Insulin controlled gestational diabetes mellitus (GDM) in second trimester; Essential hypertension affecting in third cuaixfmuo64/16/2025Orders Only Maternal- Medicine at [facility] [address] [place] [address] Zora Samuels RN Essential hypertension affecting in third trimester (Primary Dx); Insulin controlled gestational diabetes mellitus (GDM) in second trimester; Encounter for follow-up ultrasound of xsmonym1309/10/20257200Bzffpx05/10/2025 3:00 PM EDTOffice Visit Maternal- Medicine at [facility] [address] [place] [address] Jean Carlos Pina MD Diet controlled gestational diabetes mellitus (GDM) in second trimester (Primary Dx); Essential hypertension affecting in third rvptolxqp78/08/2025Travel 09/01/2025Telephone Maternal- Medicine at [facility] [address] [place] [address] Cha Harris RN 08/24/2025 1:30 PM EDTSupport Visit Maternal- Medicine at [facility] [address] [place] [address] Teena Sarmiento RN Kerline Steiner RD Gestational diabetes mellitus (GDM) in second trimester, gestational diabetes method of control zmfyidpjmfe47/28/8550Eekctn19/27/1784Mdkqnx13/26/2025bstract Maternal- Medicine at [facility] [address] [place] [address] External, Scanning Provider 08/19/2025Orders Only Maternal- Medicine at [facility] [address] [place] [address] Ref Prov, Not In System 08/18/2025bstract Maternal- Medicine at [facility] [address] [place] [address] Madhuri Monroy MD 08/18/2025Orders Only Maternal- Medicine at [facility] [address] [place] [address] Khalida Garrett RN History of pre-eclampsia in [...] or more drinks on one occasion?Never5ChildcareAnswer Date SepojroqKlzzmbgrvTrmpkos10/13/2019EmploymentAnswerDate RecordedEmployment Woiacgb9705/08/2019Hunger ScreeningAnswerDate RecordedWithin the past 12 months we worried whether our food would run out before we got money to buy more.Never True09/10/2025Within the past 12 months the food we bought just didn't last and we didn't have money to get more.Never True10/16/2025Purpose - LifeAnswerDate RecordedPurpose and direction in ffgrOlufbml01/11/2021Estimated Date of JiaeahzzGgtnrvnwKjk2026Based on last menstrual period of 02/21/2025 (Exact Date)Sex and Gender InformationValueDate RecordedSex Assigned at BirthNot on fileLegal TaxVrbgxg68/07/2019 2:55 PM ESTGender IdentityNot on fileSexual OrientationNot on file Last Filed Vital Signs Vital SignReadingTime TakenCommentsBlood Tddgugys246/801 10:34 AM EDT Jkygh63549/10/2025 2:48 PM EDTTemperature--Respiratory Xciy007612/10/2018 11:10 AM ESTOxygen Udpieobuij01%12/10/2018 11:10 AM ESTInhaled Oxygen Concentration-- Wvodbp02.6 kg (160 lb)09/10/2025 10:34 AM VXNGitlka637.5 cm (5' 2.01 )09/04/2025 2:48 PM EDTBody Mass Index29.261 2:48 PM EDT Plan of Treatment DateTypeDepartmentCare Team (Latest Contact Info)Osnkztimwvf13/03/2025 11:00 AM ESTAppointment Maternal Medicine [address] [place] [address] 11/03/2025 2:30 PM ESTOffice Visit Maternal- Medicine at [facility] [address] [place] [address] Kayleigh Rizzo, PAAlbinC [address] [address] Health MaintenanceDue DateLast DoneCommentsDepression Jicbqhbkb55/08/2007dult BMI Follow Up Plan2013DTaP,Tdap and Td Vaccines (7 - Td or Tdap)2024 2014, 05/03/2000, 12/29/1997, Additional history existsInfluenza Vaccine 51RSV ( or age 60+ yrs) (1 - Risk 1-dose series)10/03/2025dult BMI Mljxfnchd67Tobacco Screening Pap Smear Medical Devices Not on file Procedures Procedure NamePriorityDate/TimeAssociated DiagnosisCommentsUS MFM OB FOLLOW-UP, 1 MJLDBSagoplv44/13/2025 8:55 AM EST Essential hypertension affecting in third trimester Insulin controlled gestational diabetes mellitus (GDM) in second trimester Encounter for follow-up ultrasound of anatomy US MFM COMPREHENSIVE ANATOMIC YIFWESAotyzjc17/16/2025 10:56 AM EDT History of pre-eclampsia in prior , currently GLUCOSE TOLERANCE, 3 ZXMZDQcfacds09/20/2025 GLUCOSE TOLERANCE, OLAUCTXMbygkjl08/20/2025 GLUCOSE TOLERANCE, 1 NXYQXrasvyr04/20/2025 SECOND HOUR GLUCOSE TOLERANCE 100 GM ENHJMntxayx53/20/2025 ULTRASOUND AHPMHGSgzapst96/17/2025 3:39 PM EDTGLU 1H POST 50G LOADRoutine 08/12/2025 ULTRASOUND LBHDHKOihamqq46/20/2025 3:43 PM EDTAFP SINGLE MARKER SCRN, MATERNAL, YYDPQKwoelhm47/20/2025 10:17 AM EDTfrom Last 3 Months Results * US MFM OB FOLLOW-UP, 1 FETUS (10/08/2025 8:55 AM EST) Only the most recent of2 resultswithin the time period is included. Anatomical RegionLateralityModalityOB-GYNUltrasoundSpecimen (Source)Anatomical Location / LateralityCollection Method / VolumeCollection TimeReceived Time 10/08/2025 9:08 AM EST Narrative 10/08/2025 11:56 AM EST NAME: ??JAYY REYNAGA : 1995 SEX: F Accession Number: [id number] ORDERING PHYSICIAN: MADHURI MONROY REFERRING PHYSICIAN: JONY MEJÍA Coding Procedures ? 58787: Ultrasound, uterus, real time with image documentation, follow up,transabdominal ? approach per fetus Indication Screening for follow-up survey, Gestational diabetes, Chronic hypertension affecting , History of prior with pre-eclampsia , History of prior with delivery , Previous surgery to cervix -(D&C). History OB History ? 2. Para 1 ? [id number] Current Cell free DNA ?Low Risk analysis [...] (oz) ? 11 oz EFW by: ?Hadlock ([id number]) Extended Tibia ??52.5 mm 31w 1d 20% Gerda Sensor Specialist ? 2.7 mm Head / Face / Neck Cephalic index 0.82 ? 75% Nicolaides Nasal bone: ?documented previously Extremities / Bony Struc FL / BPD ? 0.66 FL / HC ?0.19 FL / AC ?0.20 Other Structures FHR ?141 bpm Anatomy The following structures appear normal: Head/Neck: Cranium. Lateral ventricles. Cavum septi pellucidi. Parenchyma. Heart/Thorax: 4-chamber view. 3-vessel view. 0-nfbdwe-tenkceq view. Bicaval view. Cardiac rhythm. ? Diaphragm. [...] MVP measures 5.1 cm. Recommendations Please see [facility] recommendations from prior clinical and/or ultrasound [...] REYNAGA : 1995 SEX: F Accession Number: [id number] ORDERING PHYSICIAN: MADHURI MONROY REFERRING PHYSICIAN: JONY MEJÍA Coding Procedures 13705: Ultrasound, uterus, real time with image documentation, follow up, transabdominal approach per fetus Indication Screening for follow-up survey, Gestational diabetes, Chronic hypertension affecting , History of prior with pre-eclampsia , History of prior with delivery ,Previous surgery to cervix -(D&C). History OB History 2. Para 1 [id number] Current Cell free DNA Low Risk analysis [...] EFW (oz) 11 oz EFW by: Hadlock ([id number]-OR-GU-FL) Extended Tibia 52.5 mm 31w 1d 20% Gerda Sensor Specialist 2.7 mm Head / Face / Neck Cephalic index 0.82 75% Nicolaides Nasal bone: documented previously Extremities / Bony Struc FL / BPD 0.66 FL / HC 0.19 FL / AC 0.20 Other Structures FHR 141 bpm Anatomy The following structures appear normal: Head/Neck: Cranium. Lateral ventricles. Cavum septi pellucidi.Parenchyma. Heart/Thorax: 4-chamber view. 3-vessel view. 0-logsij-vslqfjk view.Bicaval view. Cardiac rhythm. Diaphragm. Abdomen: Stomach. [...] as necessary. Authorizing ProviderResult TypeResult StatusMadhuri Monroy MDCLINCH MEMORIAL [facility]PITAL ORDERABLESFinal Result * 2nd hr Glucose Tolerance 100 gm load (08/15/2025)ComponentValueRef RangeTest MethodAnalysis TimePerformed AtPathologist SignatureGlucose Tolerance Test 2 Xrih644EEOJURSB TRANSCRIBED RESULTSSpecimen (Source)Anatomical Location / LateralityCollection Method / VolumeCollection TimeReceived TimeBloodVenous blood / Unknown Narrative Authorizing ProviderResult TypeResult StatusNot In System Ref FanGoLAB BLOOD ORDERABLESFinal ResultPerforming OrganizationAddressCity/State/ZIP CodePhone Number MANUALLY TRANSCRIBED RESULTS * Glucose tolerance, 1 hour (08/15/2025)ComponentValueRef RangeTest Method Analysis TimePerformed AtPathologist SignatureGlucose Tolerance Test 1 Ktyh782 MANUALLY TRANSCRIBED RESULTSSpecimen (Source)Anatomical Location / Laterality Collection Method / VolumeCollection TimeReceived TimeBloodVenous blood / Unknown Narrative Authorizing ProviderResult TypeResult StatusNot In System Ref ProvLAB BLOOD ORDERABLESFinal ResultPerforming OrganizationAddressCity/State/ZIP CodePhone Number MANUALLY TRANSCRIBED RESULTS * Glucose tolerance, 3 hours (08/15/2025)ComponentValueRef RangeTest Method Analysis TimePerformed AtPathologist SignatureGlucose Tolerance Test 3 Lsbf069 MANUALLY TRANSCRIBED RESULTSSpecimen (Source)Anatomical Location / Laterality Collection Method / VolumeCollection TimeReceived TimeBloodVenous blood / Unknown Narrative Authorizing ProviderResult TypeResult StatusNot In System Ref ProvLAB BLOOD ORDERABLESFinal ResultPerforming OrganizationAddressCity/State/ZIP CodePhone Number MANUALLY TRANSCRIBED RESULTS * Glucose, tolerance fasting (08/15/2025)ComponentValueRef RangeTest Method Analysis TimePerformed AtPathologist SignatureGlucose Tolerance Test Wixhcnx19 MANUALLY TRANSCRIBED RESULTSSpecimen (Source)Anatomical Location / Laterality [...] TimePerformed AtPathologist SignatureGlucose, 1 hr PP 50GM pekr615 MANUALLY TRANSCRIBED RESULTSSpecimen (Source)Anatomical Location / Laterality [...] Date Cruz Rodríguez MD [address] [place] [address] PCP - GeneralFamily Medicine12/02/18
--- OUTSIDE RECORDS SUMMARY | 2025-10-12 19:05 | XMS_ITS | Encounter Summary ---
Author Organization [facility] Address [address] [place] [address] Care Team Providers Care Personnel Records Clerk Name Role Phone NirajEliceo kauffman Primary Care Provider [phone] CharlottecarolEliceo Bryant DAY Unavailable [phone] Encounter Details DateTypeDepartmentCare Team (Latest Contact Info)Kbuvjxmojbd59/16/2025Clinisync Result Encounter [facility] External Department Unsolicited Jony Pop DO [address] [place] [address] Social History Tobacco UseTypesPacks/DayYears UsedDateSmoking Tobacco: NeverSmokeless Tobacco: NeverAlcohol UseStandard Drinks/WeekCommentsNever0 (1 standard drink = 0.6 oz pure alcohol)caffeine: 1-2 cups per day, coffee and [id number] Health Literacy AnswerDate RecordedHow often do you [...] relatives?Once a week12/29/2024How often do you attend moravian or restorationism services?Patient enjpavcu41/03/2025Do you belong to any clubs or organizations such as moravian groups, unions, [employer] or athletic leodan ups, or school groups?No12/29/2024How often do you attend meetings of the clubs or organizations you belong to?Patient nurmgphy10/03/2025re you , , , , never , [...] RecordedPatient Health Questionnaire-2 Score0 07/30/2025[facility] [place] of Occupational Health - Occupational Stress QuestionnaireAnswerDate RecordedDo you feel stress - tense, restless, nervous, or anxious, or unable to sleep at night because yourmind is troubled all the time - these days?Only a kdwnxk5712/29/2024Exercise Vital SignAnswerDate Recorded On average, how many [...] place to sleep or slept [facility] ([facility])?No09/19/2023Housing Stability Vital SignAnswerDate RecordedIn [...] have received?High school /29/2023 Estimated Date of FrzktaraXxnsifdmLlb33/03/2026ased on last menstrual period of 02/21/2025Sex and Gender InformationValueDate RecordedSex Assigned at BirthNot on fileLegal QxqWidfju75/15/2023 7:18 PM EDTGender IdentityNot on file Sexual OrientationNot on 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 Not on fileNot on fileNot on filedocumented as of this encounter Plan of Treatment DateTypeDepartmentCare Team (Latest Contact Info)Arpmszfzmbd32/19/2025 3:30 PM ESTRoutine [facility] [place] [facility] [address] [place] [address] Jony Pop, DO [address] [place], [place] [address] documented as of this encounter Procedures Procedure NamePriorityDate/TimeAssociated DiagnosisCommentsUS OB BPP W NON-RQRASI5010/11/2025 1:46 PM EST documented in this encounter Results * US OB BPP W NON-STRESS (10/11/2025 1:46 PM EST)Anatomical Region LateralityModalityOtherSpecimen (Source)Anatomical Location / Laterality Collection Method / VolumeCollection TimeReceived Time10/11/2025 1:46 PM EST Narrative 10/11/2025 1:48 PM EST [facility] ?[address] ? [place] [address] ? Ultrasound Report ? Signed ? Patient: DRISS GAMA ?MR#: [id number] ?? : 1995 ?Acct:[id number] ?? Age/Sex: 30 / F ?ADM Date: 10/10/25 ?? Loc: [facility] ? Attending Dr: Jony Pop D.O. ? Ordering Physician: Jony Pop D.O. ?? Date of Service: 10/10/25 ?? Procedure(s): US OB BPP w non-stress ?? Accession Number(s): [id number] ? cc: Jony Pop D.O.; Yomaira BELTRAN ? [facility] ? [address] ? [place] [address] ? Patient Name: ?? DRISS Daniel GAMA ? MRN: [id number] ? date: 1995 ?Sex: F ?? Assigned Patient Location: [facility] ?? Current Patient Location: [facility] ?? Accession/Order Number: [id number] ?? Exam Date: 10/10/2025 ??10:49 ?Report Date: [...] Dictation Location: RADIO-PC-20 ? Electronically authenticated by: [id number] ??Y ?? Date: 10/11/2025 ??13:46 ? Dictated By: ?Jp Morillo D.O. ? Signed By: ?10/11/25 1348 ? DD/ 1346 ? TD/TT: ? Welder Apprentice Arc: Procedure Note Radiology, Radiologist, - 10/11/2025 [place] [address] Ultrasound Report Signed Patient: DRISS GAMA MMR#: [id number] : 1995Acct:[id number] Age/Sex: 30 / FADM Date: 10/10/25 Loc: [facility] [place] [place] Attending Dr: Jony Pop D.O. Ordering Physician: Jony Pop D.O. Date of Service: 10/10/25 Procedure(s): US OB BPP w non-stress Accession Number(s): [id number] cc: Jony Pop D.O.; Yomaira BELTRAN The [place] [id number] Patient Name: DRISS GAMA MRN: [id number] date: 1995 Sex: F Assigned Patient [facility]: [facility] Current Patient Location: [facility] [place] [place] Accession/Order Number: [id number] Exam Date: 10/10/2025 10:49 Report Date: 10/11/2025 [...] Morillo M.D. 10/11/2025 1:46 PM [facility]ation [facility] Electron[facility] by: [id number] Y Date: 3:46 Dictated By: Jp Morillo D.O. Signed By:10/11/25 1348 DD/ 1346 TD/TT: Welder Apprentice Arc: Authorizing ProviderResult TypeResult StatusCorey Kiesha DOCLINISYNC IMAGINGFinal Result documented in this encounter Visit Diagnoses Not on filedocumented in this encounter Care Teams Team MemberRelationshipSpecialtyStart DateEnd Date Eliceo Beltran DO [address] [place] [address] PCP - GeneralFamily Medicine02/14/24 Eliceo Beltran DO [address] [place] [address] PCP - Medical [place] [employer]07/27/2412documented as of this encounter
--- OUTSIDE RECORDS SUMMARY | 2025-10-12 19:06 | XMS_ITS | Encounter Summary ---
Author Organization [facility] Address [address] [place] [place] [address] Care Team Providers Care Engineering Geologist Name Role Phone Eliceo [place]an DO Primary Care Provider [phone] CharlottecarolEliceo Unavailable [phone] Encounter Details DateTypeDepartmentCare Team (Latest Contact Info)Ddefjakokeh96/06/2025Telephone [facility] [place] [facility] [address] [place] [phone] Nathan Pop DO [address] [facility] [address] [facility] [address] [place], [facility] Social History Tobacco UseTypesPacks/DayYears UsedDateSmoking Tobacco: NeverSmokeless Tobacco: NeverAlcohol UseStandard Drinks/WeekCommentsNever0 (1 standard drink = 0.6 oz pure alcohol)caffeine: 1-2 cups per day, coffee and [id number] Health Literacy AnswerDate RecordedHow often do you [...] relatives?Once a week12/29/2024How often do you attend judaism or adventism services?Patient /03/2025Do you belong to any clubs or organizations such as judaism groups, unions, [employer] or athletic leodan ups, or school groups?No12/29/2024How often do you attend meetings of the clubs or organizations you belong to?Patient mnukitea57/03/2025re you , , , , never , [...] Health Questionnaire-2 Score0 07/30/2025[facility] [place] of Occupational Health - Occupational Stress QuestionnaireAnswerDate RecordedDo you feel stress - tense, restless, nervous, or anxious, or unable to sleep at night because yourmind is troubled all the time - these days?Only a qdtifa9912/29/2024Exercise Vital SignAnswerDate Recorded On average, how many [...] steady place to sleep or slept in [facility] (including now)?No09/19/2023Housing Stability Vital SignAnswerDate RecordedIn the [...] the highest degree you have received?High school vfnosecc95/29/2023 Estimated Date of BahfyxegGignmrhjKpx62/03/2026ased on last menstrual period of 02/21/2025Sex and Gender InformationValueDate RecordedSex Assigned at BirthNot on fileLegal WbiNmqndh43/15/2023 7:18 PM EDTGender IdentityNot on file Sexual [...] Plan of Treatment DateTypeDepartmentCare Team (Latest Contact Info)Swsbsrkiakc85/19/2025 3:30 PM ESTRoutine [facility] [place] [facility] [address] [place] [address] Nathan Pop DO [address] [facility] [address] [place] [address] documented as of this encounter Visit Diagnoses Not on filedocumented in this encounter Care Teams Team MemberRelationshipSpecialtyStart DateEnd Date Eliceo Beltran DO [address] [facility] [address] [place] [address] PCP - GeneralFamily Medicine02/14/24 Eliceo Beltran DO [address] [facility] [address] [place] [address] PCP - Medical [place] [employer]07/27/2412documented as of this encounter
--- OUTSIDE RECORDS SUMMARY | 2025-10-12 19:07 | XMS_ITS | Encounter Summary ---
Author Organization [facility] tem Address [id number] [address] [place] [address] Care Team Providers Care Human Resources Leader Name Role Phone Cruz Rodríguez MD Primary Care Provider [phone] Encounter Details DateTypeDepartmentCare Team (Latest Contact Info)Xzdyhnvvrnq62/03/2025Telephone Maternal- Medicine at [facility] [address] [facility] [place] [address] Cha Harris, DIALLO Social History Tobacco UseTypesPacks/DayYears [...] or more drinks on one occasion?Never5ChildcareAnswer Date AihpajhkEdopznmyaXdfvzhf64/13/2019EmploymentAnswerDate RecordedEmployment Wnqshdt2305/08/2019Hunger ScreeningAnswerDate RecordedWithin the past 12 months we worried whether our food would run out before we got money to buy more.Never True09/10/2025Within the past 12 months the food we bought just didn't last and we didn't have money to get more.Never True09/10/2025Purpose - LifeAnswerDate RecordedPurpose and direction in vukyLqqxgtp20/11/2021Estimated Date of UfajnbibLtkrjlvzFhb10/03/2026Based on last menstrual period of 02/21/2025 (Exact Date)Sex and Gender InformationValueDate RecordedSex Assigned at BirthNot on fileLegal TbyUknlzn13/07/2019 2:55 PM ESTGender IdentityNot on fileSexual OrientationNot [...] Plan of Treatment DateTypeDepartmentCare Team (Latest Contact Info)Eenftfpvzsn70/03/2025 11:00 AM ESTAppointment Maternal Medicine [place] [address] [facility] [facility] [place] [address] 11/03/2025 2:30 PM ESTOffice Visit Maternal- Medicine at [facility] [address] [place] [phone] Kayleigh Rizzo PA-C [address] [address] documented as of this encounter Visit Diagnoses Diagnosis Insulin controlled gestational diabetes mellitus (GDM) in second trimester documented in this encounter Care Teams Team MemberRelationshipSpecialtyStart DateEnd Date Cruz Rodríguez MD [address] [place] [address] PCP - GeneralFamily Medicine12/02/18documented as of this encounter
--- OUTSIDE RECORDS SUMMARY | 2025-10-12 19:08 | XMS_ITS | Encounter Summary ---
Author Organization [facility] tem Address [id number] [address] [place] [address] Care Team Providers Care Rug Repairer Name Role Phone Cruz Rodríguez MD Primary Care Provider [phone] Encounter Details DateTypeDepartmentCare Team (Latest Contact Info)Bexckihpemi42/03/2025Orders Only Maternal- Medicine at [facility] [address] [place] [address] Kayleigh Rizzo, PAAlbinC [address] [address] Essential hypertension affecting in third trimester Social [...] or more drinks on one occasion?Never5ChildcareAnswer Date BmlhgxlzNthxfxxylYjiigxr76/13/2019EmploymentAnswerDate RecordedEmployment Spgajhe3205/08/2019Hunger ScreeningAnswerDate RecordedWithin the past 12 months we worried whether our food would run out before we got money to buy more.Never True09/10/2025Within the past 12 months the food we bought just didn't last and we didn't have money to get more.Never True09/10/2025Purpose - LifeAnswerDate RecordedPurpose and direction in ljqoUkarmji38/11/2021Estimated Date of RwufqimgAwoejxtzAfg15/03/2026Based on last menstrual period of 02/21/2025 (Exact Date)Sex and Gender InformationValueDate RecordedSex Assigned at BirthNot on fileLegal TwgKdexpa42/07/2019 2:55 PM ESTGender IdentityNot on fileSexual OrientationNot on filedocumented as of this encounter Plan of Treatment DateTypeDepartmentCare Team (Latest Contact Info)Osxyodrllvq52/03/2025 11:00 AM ESTAppointment Maternal Medicine [address] [place] [address] 11/03/2025 2:30 PM ESTOffice Visit Maternal- Medicine at [facility] [address] [place] [address] Kayleigh Rizzo, PAAlbinC [address] [address] documented as of this encounter Visit Diagnoses Diagnosis Essential hypertension affecting in third trimester documented in this encounter Care Teams Team MemberRelationshipSpecialtyStart DateEnd Date Cruz Rodríguez MD [address] [place] [address] PCP - GeneralFamily Medicine12/02/18documented as of this encounter
[2025-10-12 19:39] LABS: Glucose Urine UA NEGATIVE (NEGATIVE)
[2025-10-12] MEDS: 0.9 % SODIUM CHLORIDE 1,000 ML 125 ML IV (20:37)
[2025-10-12] MEDS: BETAMETHASONE ACE/BETAMETHASONE SOD PHOS 30 MG/5 ML 12 MG IM (20:38)
[2025-10-12 20:49] LABS: Hematocrit 34.5 % (36.0-48.0); Hemoglobin 11.7 g/dL (12.0-16.0); Immature Granulocytes Abs Auto 0.36 10^3/uL (0.00-0.03); Immature Granulocytes Pct Auto 3.0 % (0.0-0.5); Lymphocytes Absolute Auto 2.3 10^3/uL (1.2-3.8); Mean Corpuscular HGB Conc 33.9 g/dL (29.9-35.2); Mean Corpuscular Hemoglobin 30.5 pg (26.7-34.0); Mean Corpuscular Volume 89.8 fL (81.0-99.0); Platelet Count 290 10^3/uL (150-450); Red Blood Count 3.84 10^6/uL (4.20-5.40); White Blood Count 12.1 10^3/uL (4.0-11.0)
[2025-10-12 20:58] LABS: Alanine Aminotransferase 52 U/L (14-59); Aspartate Amino Transferase 25 U/L (15-37); Blood Urea Nitrogen 12.0 mg/dL (7.0-18.0); Estimated GFR (African America >60 (>=60 mL/min/1.73m^2); Estimated GFR (Non-African Ame >60 (>=60 mL/min/1.73m^2); Partial Thromboplastin Time 24.5 sec (22.3-36.2); Prothrombin Time 9.6 sec (9.0-11.6); Uric Acid 4.1 mg/dL (2.6-6.0)
[2025-10-12 20:59] LABS: INR <0.93
[2025-10-12] MEDS: LABETALOL HCL 100 MG TABLET 300 MG PO (22:02)
[2025-10-12] MEDS: INSULIN GLARGINE 300 UNIT/3 ML INSULN.PEN 23 UNIT SQ (22:15)
[2025-10-12 22:39] LABS: Protein Creatinine Ratio Urine 0.16; Total Protein Urine Random 13.5 mg/dL (<=11.9)
[2025-10-13 02:52] VITALS: BP 131/74; PULSE 111; TEMP 36.4
[2025-10-13] MEDS: 0.9 % SODIUM CHLORIDE 1,000 ML 125 ML IV (04:29)
[2025-10-13 06:14] VITALS: BP 118/66; PULSE 99
[2025-10-13] MEDS: LABETALOL HCL 100 MG TABLET 300 MG PO (06:14)
[2025-10-13 06:15] VITALS: BP 118/66; PULSE 99
[2025-10-13 08:15] VITALS: BP 116/70; PULSE 100
[2025-10-13 08:21] VITALS: TEMP 36.7
--- NOTE | 2025-10-13 08:22 | PC.NURSE ---
states headache is improved, feels a cramping feeling under her ribs over last hour, reflexes 1+ upper, 3+lower, no edema or visual disturbances noted.Up to void and EFM applied.
== END 2025-10-13 09:06 | disposition home or self-care (01) ==
PROVIDERS: Admitting Provider Obstetrics & Gynecology; Family Provider Family Medicine; PCP Family Medicine; Visit Provider Obstetrics & Gynecology
DX: O26.893 Other specified pregnancy related conditions, third trimester (principal); O99.891 Other specified diseases and conditions complicating pregnancy; R51.9 Headache, unspecified; Z3A.33 33 weeks gestation of pregnancy
CPT/HCPCS: 36415; 59025; 81003; 82565; 82570; 83615; 84156; 84450; 84460; 84520; 84550; 85025; 85610; 85730; 96372; 96374; 96376; G0378; G0379; J0702; J2300

== ENCOUNTER 2025-10-13 20:35 | Outpatient (OUT) | payer OTHER, SELFPAY ==
--- OUTSIDE RECORDS SUMMARY | 2025-10-13 20:38 | XMS_ITS | CCD ---
Author Organization [facility] Care Team Providers Care Inoculator Name Role Phone Unavailable Unavailable POCOPAL QUINTEROS Referring Unavailable DENNY RODRÍGUEZ Primary Care Unavailable OPAL LARA Referring Unavailable DENNY RODRÍGUEZ Primary Care Unavailable DENNY RODRÍGUEZ Primary Care Physician [phone] Domo Hodges Unavailable PAOLO DIALLO Attending Unavailable KATHE RYDER Admitting Unavailable KATHE RYDER Attending Unavailable Denny Rodríguez MD Primary Care Provider Denny Rodríguez MD Unavailable [phone] Denny Rodríguez MD Primary Care Provider [phone] Denny Rodríguez MD Unavailable [phone] Kita LIFE SKILLS INSTRUCTOR, Zenobia Unavailable Keesha LIFE SKILLS INSTRUCTOR, Trista R Unavailable [phone] Denny Rodríguez MD Primary Care Provider [phone] CHARLENE RODRIGUEZ Referring Unavailable RODRÍGUEZ, DENNY SAHIL Primary Care Unavailable CHARLENE RODRIGUEZ Attending Unavailable RODRÍGUEZ, DENNY SAHIL Referring Unavailable RODRÍGUEZ, DENNY SAHIL Primary Care Unavailable CHARLENE RODRIGUEZ Attending Unavailable RODRGÍUEZ, DENNY SAHIL Primary Care Unavailable RODRÍGUEZ, DENNY [...] Care Provider Kiesha DO, Nathan Attending Provider [phone] Kiesha, Nathan Admitting Unavailable Kiesha, Nathan Attending Unavailable Dickson Rodríguezian Primary Care Unavailable KIESHA, Nathan R Attending Unavailable KIESHA, Nathan R Referring Unavailable KIESHA, Nathan R Admitting Unavailable KIESHA, Nathan R Attending Unavailable KIESHA, Nathan R Admitting Unavailable Kaftan DO Eliceo R Unavailable [phone] Yomaira BELTRAN Attending Unavailable KAFTAN, G KENNETH Admitting Unavailable KIESHA, Nathan R Attending Unavailable KIESHA, Nathan R Admitting Unavailable KIESHA, Nathan R Admitting Unavailable KIESHA, Nathan R Attending Unavailable KAFTAN, G KENNETH Admitting Unavailable KAFTAN, G KENNETH Attending Unavailable KAFTAN, G KENNETH Admitting Unavailable KAFTAN, G KENNETH Attending Unavailable Denny Rodríguez MD Primary Care Provider [phone] STEPH KEANE Attending Unavailable STEPH KEANE Admitting [...] Unavailable Denny Rodríguez MD Primary Care Provider [phone] Denny Rodríguez MD Unavailable [phone] Kita LIFE SKILLS INSTRUCTOR, Zenobia Unavailable Keesha LIFE SKILLS INSTRUCTOR, Trista R Unavailable ELICEO BELTRAN Attending Unavailable [...] [No Known Medication Allergies]Propensity to adverse reactions (disorder)[facility] Medications Current Medications MedicationDrug Class(es)DatesSig (Normalized)Sig (Original)acetaminophen 325 mg / butalbital 50 mg / caffeine 40 mg oral tablet (14 sources)Barbiturate, Central Nervous System Stimulant, MethylxanthineStart: 02-19-2024 End: 23-83-1414hnen 1 tablet by mouth every six hours for headache cnzpodevtb-wygiifrytzgak-ijkwcvkw 50-325-40 MG tablet Indications: Other migraine without status migrainosus, not intractable Take 1 tablet by mouth every 6 (six) hours if needed for headaches 20 tablet 02/19/2024 05/01/2025 Discontinuedatenolol 25 mg oral tablet (4 sources)beta-Adrenergic BlockerStart: 54-13-5141zrre 1 mg by mouth once daily atenolol 25 mg Tab mg tab(s), Oral, Daily, Refills(s) 0 Start Date: 02/02/21 Status: OrderedStart: 08-06-2017 End: 06-19-6342rmll 1 tablet by mouth once dailyAtenolol 50 mg tablet Discontinued 50 MG PO Daily August 06, 2017 12:00am October 16, 2018 3 :34pmbaclofen suppository 10 mg (CPD) (8 sources)Start: 11-09-8816eololmex suppository 10 mg (CPD) Indications: High- tone pelvic floor dysfunction , Chronic pelvic pain in female Unwrap and insert one suppository vaginally daily at bedtime. 30 Suppository 2 08/24/2023 Active Comment on above:Unwrap and insert one suppository vaginally daily at bedtime. Blood Glucose Monitoring Suppl (D-Care Glucometer) w/Device kit (20 sources)Start: 08-20-2025 End: 48-50-1788Fivtu Glucose Monitoring Suppl (D-Care Glucometer) w/Device kit Indications: Gestational diabetes mellitus (GDM), antepartum, gestational diabetes method of control unspecified ([facility]) , Elevated glucose tolerance test 1 kit Daily Use four times daily to check FSBS. In the morning prior to breakfast & 1 hour after each meal for a total of 4times daily. 1 kit 08/20/2025 08/20/2026 Activecephalexin 500 mg oral capsule (6 sources)Cephalosporin AntibacterialStart: 02-14-2021 End: 25-29-7753bjqv 1 capsule by mouth every twelve hoursKeflex 500 mg Cap 500 mg = 1 cap(s), Oral, q12hr, X 7 day(s), # 14 cap(s), Refills(s) 0 Start Date: 07/14/22 Stop Date: 07/21/22 Status: OrderedStart: 03-14-2019 End: 48-83-2341gfmy 1 capsule by mouth every twelve hoursCephalexin (Keflex) 500 mg capsule Discontinued 500 MG PO Q12H 14 March 14, 2019 12:00am August 04, 2019 8:18amcyclobenzaprine hydrochloride 5 mg oral tablet (20 sources)Muscle RelaxantStart: 12-30-2024 End: 39-59-3622qypm 1 tablet by mouth in the morning, [...] 30 tablet 12/30/2024 01/09/2025 ActiveStart: 05-01-2023 End: 49-72-6633oqsp 1 tablet by mouth at bedtime as neededcyclobenzaprine (FLEXERIL) 5 mg tablet Indications: Dysmenorrhea , Chronic pelvic pain in female Take 1 tablet by mouth at bedtime as needed. 30 tablet 1 05/01/2023 ActiveStart: 29-15-2971kixh 1 tablet by mouth three times daily as needed for muscle spasms cyclobenzaprine 10 mg Tab 10 mg = 1 tab(s), Oral, TID, PRN for spasm, # 30 tab(s), Refills(s) 0, Pharmacy: [facility], 157, cm, 01/23/22 7:20:00 EST, Height/Length Dosing, 55, kg, 01/23/22 7:20:00 EST, Weight Dosing Start Date: 01/23/22 Status: Ordered Quantity: 30.0 Unit: tab(s) Repeat number: 1 Comment on above:Take 1 tablet by mouth at bedtime as needed.cyproheptadine hydrochloride 4 mg oral tablet (10 sources)Start: 30-78-3978nshf 1 mg by mouth three times dailycyproheptadine 4 mg Tab mg tab(s), Oral, TID, Refills(s) 0 Start Date: 02/02/21 Status: Ordered Repeat number: 1Dasetta oral tablet (1 source)Start: 82-14-8348imwu 1 tablet by mouth once dailyDasetta oral tablet 1 tab(s), Oral, Daily, Refill(s) 0, control/menstrual regulation Start Date: 11/23/16 Status: Ordereddocusate sodium 100 mg oral capsule (7 sources)Start: 11-30-2022 End: 32-16-5858ehpb 1 capsule by mouth twice daily as needed for constipation Docusate Sodium (DSS) 100 MG capsule Take 1 capsule (100 mg) by mouth 2 times daily as needed for constipation (Vaginal Delivery) for up to 10 days. 60 capsule 0 12/01/2022 12/31/2022 ActiveStart: 07-14-2022 End: 85-43-3818magp 1 capsule by mouth twice dailyColace 100 mg Cap 100 mg = 1 cap(s), Oral, BID, X 10 day(s), # 20 cap(s), Refills(s) 0 Start Date: 07/14/22 Stop Date: 07/24/22 Status: Orderedelagolix 150 mg oral tablet (13 sources)Start: 07-16-2023 End: 30-69-8290dvmw 1 tablet by mouth once dailyelagolix (ORILISSA) 150 mg tablet Take 1 tablet (150 mg) by mouth once daily. 30 tablet 11 07/16/2023 07/15/2024 ActiveStart: 85-69-1183divb 1 tablet by mouth twice dailyOrilissa 200 MG Oral Tablet take 1 tablet by mouth twice a day Quantity: 60 Refills: 4 Ordered: 09-Feb-2022 Charlene Rodriguez DO Start : 09-Feb-2022 ActiveComment on above:Take 1 tablet (150 mg) by mouth once daily.ergocalciferol 0.05 mg oral capsule (1 source)Provitamin D2 CompoundStart: 23-49-0777Vhaexbx D2 2000 intl units oral capsule Oral, Daily, Refills(s) 0 Start Date: 02/02/21 Status: OrderedEthinyl Estradiol / Levonorgestrel (8 sources)Progestin, Estrogen, Progestin-containing Intrauterine DeviceStart: 04-03-2024 End: 24-16-0478tlgfdyqlhogtyg-ethinyl estradiol (Jolessa) 0.15-0.03 MG tablet Indications: Uses control TAKE1 TABLET BY MOUTH EVERY MORNING 91 tablet 3 04/03/2024 08/18/2024 Discontinued (Other)Start: 14-25-0301gnqtotaqekasfh- ethinyl estradiol (Jolessa) 0.15-0.03 MG tablet Indications: Uses control TAKE1 TABLET BY MOUTH EVERY MORNING 91 tablet 3 04/03/2024 ActiveStart: 01-10-2024 End: 66-80-8488vtrr 1 tablet by mouth in the morning, then take 1 tablet by mouth once dailylevonorgestrel-ethinyl estradiol (Jolessa) 0.15-0.03 MG tablet Indications: Uses control Take1 tablet by mouth in the morning. Take 1 tablet by mouth daily. 90 tablet 0 01/10/2024 04/09/2024 Activeethinyl estradiol 0.035 mg / norgestimate 0.25 mg oral tablet (4 sources)Progestin, EstrogenStart: 83-02-3890hfhcndrcbvco-ethinyl estradiol (Ortho-Cyclen) 0.25-35 MG-MCG tablet 1 (one) time each day at the same time. 0 01/15/2023 ActiveStart: 56-69-2045rrec 1 tablet by mouth once dailyNorgestimate- Ethinyl Estradiol 0.25-35 mg-mcg tablet Active 1 TAB PO Daily August 04, 2019 12:00amMono-Linyah 0.25-35 MG-MCG Oral for 28 Not-TakinghydrOXYzine hydrochloride 25 mg oral tablet (10 sources)AntihistamineStart: 65-94-8807wpkl 1 mg by mouth four times daily hydrOXYzine hydrochloride 25 mg Tab mg tab(s), Oral, QID, Refills(s) 0 Start Date: 02/02/21 Status: Ordered Repeat number: 1hyoscyamine sulfate 0.125 mg oral tablet (10 sources)Start: 04-66-9492szqr 1 tablet by mouth every six hoursLevsin 0.125 mg SL Tab 0.125 mg = 1 tab(s), Oral, q6hr, # 20 tab(s), Refills(s) 1, Pharmacy: [facility], 161, cm, 03/10/21 11:21:00 EDT, Height/Length Dosing, 56, kg, 03/10/21 11:21:00 EDT, Weight Dosing Start Date: 03/10/21 Status: Ordered Quantity: 20.0 Unit: tab(s) Repeat number: 2ibuprofen 600 mg oral tablet (15 sources)Nonsteroidal Anti-inflammatory DrugStart: 01-23-2022 End: 45-12-6670fjfs 1 tablet by mouth every six hoursibuprofen 600 mg Tab 600 mg = 1 tab(s), Oral, q6hr, # 40 tab(s), Refills(s) 0, [facility]: [facility], 157, cm, 01/23/22 7:20:00 EST, Height/Length Dosing, 55, kg, 01/23/22 7:20:00 EST, WeightDosing Start Date: 01/23/22 Status: Ordered Quantity: 40.0 Unit: tab(s) Repeat number: 1insulin glargine-yfgn (Semglee-yfgn) 100 UNIT/ML pen (8 sources)Start: 69-75-0091razsiyy glargine-yfgn (Semglee-yfgn) 100 UNIT/ML pen Inject 13 Units under the skin at bedtime 09/15/2025 Activeinsulin glargine-yfgn 100 unit/mL (3 mL) insulin pen (16 sources)Start: 40-52-8243hgfambf glargine-yfgn 100 unit/mL (3 mL) insulin pen Indications: Essential hypertension affecting in third trimester Prime with 2 units and give 5 units every morning and 23 units subQ at bedtime. 15 mL 3 09/28/2025 ActiveStart: 09-21-2025 End: 03-54-3838nqvgiju glargine-yfgn 100 unit/mL (3 mL) insulin pen Indications: Essential hypertension affecting in third trimester Prime with 2 units and give 5 units every morning and 20 units subQ at bedtime. 15 mL 3 09/21/2025 09/28/2025 DiscontinuedStart: 80-35-7777bplvxak glargine-yfgn 100 unit/mL (3 mL) insulin pen Indications: Essential hypertension affecting in third trimester Prime with 2 units and give 5 units every morning and 20 units subQ at bedtime. 15 mL 3 09/21/2025 ActiveStart: 09-17-2025 End: 08-08-2364dqheear glargine-yfgn 100 unit/mL (3 mL) insulin pen Indications: Essential hypertension affecting in third trimester Prime with 2 units and give 5 units every morning and 17 units subQ at bedtime. 15 mL 3 09/17/2025 09/21/2025 DiscontinuedStart: 24-24-6323bhnlkhz glargine-yfgn 100 unit/mL (3 mL) insulin pen Indications: Essential hypertension affecting in third trimester Prime with 2 units and give 5 units every morning and 17 units subQ at bedtime. 15 mL 3 09/17/2025 ActiveStart: 09-15-2025 End: 01-05-7456balteca glargine-yfgn 100 unit/mL (3 mL) insulin pen Indications: Essential hypertension affecting in third trimester Prime with 2 units and give 17 units subQ at bedtime. 15 mL 3 09/15/2025 09/17/2025 Discontinued Start: 42-56-5368dnwnlev glargine-yfgn 100 unit/mL (3 mL) insulin pen Indications: Essential hypertension affecting in third trimester Prime with 2 units and give 17 units subQ at bedtime. 15 mL 3 09/15/2025 ActiveStart: 09-10-2025 End: 03-57-7619zgladus glargine-yfgn 100 unit/mL (3 mL) insulin pen Indications: Essential hypertension affecting in third trimester Prime with 2 units and give 13 units subQ at bedtime. 15 mL 3 09/10/2025 09/15/2025 Discontinued Start: 47-28-0091guyashw glargine-yfgn 100 unit/mL (3 mL) insulin pen Indications: Essential hypertension affecting in third trimester Prime with 2 units and give 13 units subQ at bedtime. 15 mL 3 09/10/2025 ActiveStart: 09-04-2025 End: 78-34-4721jbmtua 2 [IU] by subcutaneous injection once, then inject 10 [IU] by subcutaneous injection at bedtimeinsulin glargine-yfgn 100 unit/mL (3 mL) insulin pen Indications: Diet controlled gestational diabetes mellitus (GDM) in second trimester , Essential hypertension affecting in third trimester Prime with 2 units and give 10 units subQ at bedtime. 15 mL 3 09/04/2025 09/10/2025 DiscontinuedStart: 46-26-9957bdpefl 2 [IU] by subcutaneous injection once, then inject 10 [IU] by subcutaneous injection at bedtimeinsulin glargine- yfgn 100 unit/mL (3 mL) insulin pen Indications: Diet controlled gestational diabetes mellitus (GDM) in second trimester , Essential hypertension affecting in third trimester Prime with 2 units and give 10 units subQ at bedtime. 15 mL 3 09/04/2025 Activeisopropyl alcohol 0.7 ml/ml medicated pad (20 sources)Start: 27-20-7415Tvmozxj Swabs (Alcohol Prep Pad) 70 % pads Indications: Gestational diabetes mellitus (GDM), antepartum, gestational diabetes method of control unspecified ([facility]) , Elevated glucose tolerance testApply 1 Pad topically Daily Use four times daily to check FSBS. 150 each 3 08/20/2025 Activeiv contrast (will be provided with radiology test) (12 sources)Start: 22-39-5032fg contrast (will be provided with radiology test) [...] 200 mg oral tablet (20 sources)beta-Adrenergic BlockerStart: 97-67-1453mjrv 1 tablet by mouth in the morninglabetalol (Normodyne) 200 MG tablet Indications: Gestational Hypertension Take 1 tablet (200 mg) bymouth in the morning and 1 tablet (200 mg) before bedtime. 60 tablet 3 09/03/2025 ActiveStart: 07-30-2025 End: 88-95-8763ztpw 1 tablet by mouth in the morninglabetalol (Normodyne) 100 MG tablet Indications: Hypertension, unspecified type Take 1 tablet (100 mg) by mouth in the morning and 1 tablet (100 mg) before bedtime. 60 tablet 5 07/30/2025 09/03/2025 DiscontinuedStart: 11-28-2022 End: 88-30-7618sreymywfv (Normodyne,Trandate) injection 20 mgStart: 11-28-2022 End: 76-51-6346zbvcrqbdc (Normodyne,Trandate) injection 20 mgStart: 11-28-2022 End: 30-88-5367pqtrqnokd (Normodyne,Trandate) 5 MG/ML injection - Pyxis ADS Override Pulltake 2 tablets by mouth three times dailylabetaloL (NORMODYNE) 100 mg tablet Take 2 tablets (200 mg total) by mouth 3 (three) times a day. Active magnesium oxide 400 mg oral tablet (9 sources)Start: 05-01-2025 End: 32-52-8157kvmu 1 tablet by mouth once dailymagnesium oxide (Mag-Ox) 400 MG tablet Indications: headache in first trimester ([facility])Take 1 tablet (400 mg) by mouth Daily 30 tablet 3 05/01/2025 05/31/2025 Activemeloxicam 15 mg oral tablet (15 sources)Nonsteroidal Anti-inflammatory DrugStart: 02-02-2021 End: 59-95-8064ibrb 1 tablet by mouth once dailymeloxicam (Mobic) 15 MG tablet Indications: Chronic right shoulder pain , Scapular dyskinesis Take 1 tablet (15 mg) by mouth Daily 30 tablet 3 12/30/2024 05/01/2025 Hbgmsnqcdgmu84 hr metoprolol succinate 25 mg extended release oral tablet (20 sources)beta-Adrenergic BlockerStart: 10-15-2024 End: 02-65-9330dsri 1 tablet by mouth once dailymetoprolol succinate XL (Toprol- XL) 25 MG 24 hr tablet Indications: Hypertension, unspecified type Take 1 tablet by mouth daily 90 tablet 1 12/30/2024 ActiveStart: 30-09-6464klxm 1 tablet by mouth once dailymetoprolol succinate XL (Toprol-XL) 25 MG 24 hr tablet Indications: Hypertension, unspecified type (CMS/HCC) Take 1 tablet by mouth daily 90 tablet 1 04/23/2024 ActiveStart: 77-85-4324iixy 1 tablet by mouth once dailymetoprolol succinate XL (Toprol-XL) 25 MG 24 hr tablet Indications: Hypertension, unspecified type (CMS/HCC) Take 1 tablet by mouth daily 90 tablet 1 10/23/2023 ActiveStart: 02-27-2023 End: 97-46-3023gzfburlppp succinate ER (TOPROL XL) 25 mg 24 hr tabletnaproxen 500 mg delayed release oral tablet (20 sources)Nonsteroidal Anti-inflammatory DrugStart: 29-97-2045nnbn 1 tablet by mouth twice dailynaproxen 500 mg oral enteric coated tablet 500 mg = 1 tab(s), Oral, BID, # 28 tab(s), Refills(s) 0 Start Date: 11/07/21 Status: Ordered Quantity: 28.0 Unit: tab(s) Repeat number: 1Start: 03-04-2021 End: 92-64-0030dnoo 1 tablet by mouth twice dailynaproxen 500 mg Tab 500 mg = 1 tab(s), Oral, BID, Take one tab by mouth two times a day, # 14 tab(s), Refills(s) 0, [facility] 157, cm, 03/04/21 7:22:00 EDT, Height/Length Dosing,52, kg, 03/04/21 7:22:00 EDT, Weight Dosing Start Date: 03/04/21 Status: Ordered Quantity: 14.0 Unit:tab(s) Repeat number: 1Start: 11-02-2018 End: 02-30-0603aaob 1 tablet by mouth twice daily as [...] (5 sources)Dihydropyridine Calcium Channel BlockerStart: 11-28-2022 End: 37-38-9662TVUVmyxcbs XL (Procardia XL) 30 MG 24 hr tablet Take 1 tablet (30 mg) by mouth daily. Do not crush,chew, or split. Do not start before December 02, 2022. 90 tablet 0 12/02/2022 12/02/2023 Activenorethindrone acetate 5 mg oral tablet (20 sources)Start: 05-17-2023 End: 62-60-1372jnbm 2 tablets by mouth once dailynorethindrone (AYGESTIN) 5 mg tablet Take 2 tablets by mouth once daily. 60 tablet 5 01/03/2024 07/01/2024 ActiveStart: 04-11-2023 End: 28-89-9557xpuv 1 tablet by mouth once dailynorethindrone (AYGESTIN) 5 mg tablet Take 1 tablet by mouth once daily. 30 tablet 11 04/11/2023 ActiveStart: 12-50-7249aujh 1 tablet by mouth once dailyNorethindrone Acetate [...] mg/ml rectal foam (2 sources)Start: 07-14-2022 End: 88-90-9914cihh 15 g rectal route twice dailyProctoFoam 1% Foam apply, Rectal, BID for 7 day(s), 15 gm, Refill(s) 0 Start Date: 07/14/22 Stop Date: 07/21/22 Status: OrderedPrenatal Multivitamins with Vitamin B Complex, Vitamin C, Minerals and L-Methylfolate oral capsule (9 sources)Start: 73-67-8001Wkwrtyuy Multivitamins with Vitamin B Complex, Vitamin C, Minerals and L-Methylfolate oral capsule 1 cap(s), Oral, Daily, 30 cap(s), Refill(s) 0 Start Date: 07/14/22 Status: Ordered Quantity: 30.0 Unit: cap(s) Repeat number: 1Start: 00-45-4149Yvwhyufd Multivitamins with Vitamin B Complex, Vitamin C, Minerals and L-Methylfolate oral capsule 1 cap(s), Oral, Daily, 30 cap(s), Refill(s) 0 Start Date: 07/14/22 Status: OrderedPrenatal Vit-Fe Fumarate-FA ( Vitamin) 27-0.8 MG tablet (3 sources) Vit-Fe Fumarate-FA ( Vitamin) 27-0.8 MG tablet Take by mouth. 0 ActivePrenatal Vit-Fe Fumarate-FA ( Vitamins) 28-0.8 MG tablet (20 sources)Start: 05-01-2025 End: 87-77-9442hjsk 1 tablet by mouth once dailyPrenatal Vit-Fe Fumarate-FA ( Vitamins) 28-0.8 MG tablet Indications: , unspecified gestational age ([facility]) , Encounter for supervision of normal first in first trimester([facility]) Take 1 tablet by mouth Daily 30 tablet 11 05/01/2025 05/01/2026 ActiveStart: 05-01-2025 End: 31-14-3059shwn 1 tablet by mouth once dailyPrenatal Vit-Fe Fumarate-FA ( Vitamins) 28-0.8 MG tablet Indications: , unspecified gestational age , Encounter for supervision of normal first in first trimester Take 1 tablet by mouth Daily 30 tablet 11 05/01/2025 05/01/2026 Active SUMAtriptan 100 mg oral tablet (10 sources)Serotonin-1b and Serotonin-1d Receptor AgonistStart: 49-43-9762yjpa 1 mg by mouth onceImitrex 100 mg Tab mg tab(s), Oral, Once, Refills(s) 0 Start Date: 02/02/21 Status: Ordered Repeat number: 1Surgical Lubricant Jelly gel (12 sources)Start: 41-95-3648Ofcwomqh Lubricant Jelly gel For MRI Female Pelvis, MRI department to provide. Administer intra-vaginal Surgilube immediately prior the MRI procedure (total amount to patient toleranace). 1 g 0 05/17/2023 Active Comment on above:For MRI Female Pelvis, MRI department to provide. Administer intra-vaginal Surgilube immediately prior the MRI procedure (total amount to patient toleranace).tiZANidine 4 mg oral tablet (3 sources)Central alpha-2 Adrenergic AgonistStart: 02-32-7648efwh 1 mg by mouth every eight hourstiZANidine 4 mg Tab mg tab(s), Oral, q8hr, Refills(s) 0 Start Date: 02/02/21 Status: OrderedtraMADol hydrochloride 50 mg oral tablet (10 sources)Opioid AgonistStart: 49-69-8828yznh 1 tablet by mouth every four hours as needed for paintraMADol (ULTRAM) 50 mg tablet Indications: Pelvic pain in female Take 1 tablet by mouth every 4 hours as needed for pain. 20 tablet 0 08/30/2023 ActiveStart: 27-53-6664lwvm 1 tablet by mouth every six hourstraMADol HCl - 50 MG Oral Tablet TAKE 1 TABLET Every 6 hours Quantity: 20 Refills: 0 Ordered: 18-Aug-2020 Charlene Rodriguez DO Start : 18-Aug-2020 ActiveStart: 03-12-2019 End: 44-56-5722dbnx 1 tablet by mouth every four hours as needed for pain Tramadol 50 mg tablet Discontinued 50 MG PO Q4H as needed for pain 30 5 March 12, 2019 12:00am August 04, 2019 8:19amComment on above:Take 1 tablet by mouth every 4 hours as needed for pain.Vitamin D2 2000 intl units oral capsule (9 sources)Start: 13-06-8806akgk 1 capsule by mouth once dailyVitamin D2 2000 intl units oral capsule Oral, Daily, Refills(s) 0 Start Date: 02/02/21 Status: Ordered Repeat number: 1Start: 95-74-0688Htvfamr D2 2000 intl units oral capsule Oral, Daily, Refills(s) 0 Start Date: 02/02/21 Status: Ordered Completed/Discontinued Medications MedicationDrug Class(es)DatesSig (Normalized)Sig (Original)acetaminophen 325 mg oral tablet (4 sources)Start: 11-30-2022 End: 22-41-1053uahg 1 tablet by mouth every six hours as needed for irmi795 mg, Oral, Every 6 hours PRN, mild pain (1-3), Starting on Constance 11/30/22 at 0422 Give in addition to any other pain medication ordered at same time for any pain indication. Maximumdose of acetaminophen is 4000 mg from all sources in 24 hours. Alternate ibuprofen and acetaminophen every 3 hours.Start: 11-28-2022 End: 43-57-9347fukglawxjvnjf (Tylenol) tablet 1,000 mgacetaminophen 300 mg / codeine phosphate 30 mg oral tablet (4 sources)Opioid AgonistStart: 01-19-2025 End: 73-11-0630fjpv 1 tablet by mouth every six hours for painacetaminophen- codeine (Tylenol w/ Codeine #3) 300-30 MG tablet Indications: Pain in female genitalia on intercourse , Endometriosis Take 1 tablet by mouth every 6 (six) hours if needed for severe pain for up to 5 days 20 tablet 01/19/2025 01/24/2025 ExpiredStart: 07-22-2024 End: 20-77-5681hmgo 1 tablet by mouth every six hours for painacetaminophen- codeine (Tylenol w/ Codeine #3) 300-30 MG tablet Indications: Dysmenorrhea, unspecified Take 1 tablet by mouth every 6 (six) hours if needed for severe pain for up to 5 days 20 tablet 07/22/2024 07/27/2024 Activeascorbic acid 500 mg oral tablet (5 sources)Vitamin CStart: 10-25-2018 End: 30-98-0273tamy 2 tablets by mouth in the morningASCORBIC ACID WITH ISAURO HIPS 500 MG tablet Take 2 tablets (1,000 mg total) by mouth in the morning.0 10/25/2018 09/04/2025 Discontinued ()aspirin 325 mg / butalbital 50 mg / caffeine 40 mg oral capsule (11 sources)Platelet Aggregation Inhibitor, Barbiturate, Nonsteroidal Anti- inflammatory Drug, Central Nervous System Stimulant, Methylxanthine End: 80-92-2231eysx 1 capsule by mouth every four hours as needed smjipobcsi-ylurtij-xypsnfbi (Fiorinal) 50-325-40 MG capsule Take 1 capsule [...] spray (2 sources)Standardized Chemical AllergenStart: 11-30-2022 End: 62-05-0547Dhnjnfs, As needed, pain, , Starting on Constance 11/30/22 at 0608, Apply to perineal area. Patient is capable and may self administer at bedside.betamethasone 3 mg/ml / betamethasone acetate 3 mg/ml injectable suspension (2 sources)CorticosteroidStart: 11-28-2022 End: 34-00-1833bsdzamidbodqi acetate-betamethasone sodium phosphate (Celestone) injection 12 mgcalcium chloride 0.0014 meq/ml / potassium chloride 0.004 meq/ml / sodium chloride 0.103 meq/ml / sodium lactate 0.028 meq/ml injectable solution (2 sources)Start: 11-28-2022 End: 29-24-2460jxdi 125 mL intravenously every inil901 mL/hr, IntraVENous, Continuous, Starting on Sun11/28/22 at 0100, Pre-Deliverycetirizine hydrochloride 10 mg oral tablet (17 sources)Histamine-1 Receptor AntagonistStart: 06-09-2025 End: 47-56-2043rlnk 1 tablet by mouth once dailycetirizine (ZyrTEC ALLERGY) 10 MG tablet Indications: Allergy, sequela Take 1 tablet (10 mg) by mouth Daily 30 tablet 11 06/09/2025 07/15/2025 DiscontinuedchlordiazePOXIDE hydrochloride 5 mg / clidinium bromide 2.5 mg oral capsule (1 source)Anticholinergic, BenzodiazepineStart: 72-51-4194dkoi 1 capsule by mouth every eight hourschlordiazePOXIDE-Clidinium 5-2.5 MG 1 capsule before meals Orally Three times a day for 30 day(s) May, Not-Taking chlorhexidine gluconate 20 mg/ml medicated pad (2 sources)Start: 11-28-2022 End: 56-59-2862jbzdh 1 dose topically every six hoursTopical, Every 6 hours, First dose on Sun11/28/22 at 0100, Pre-Delivery Apply to the affected area.&a mp;nbsp; Clean entire abdomen.cholecalciferol 0.125 mg oral capsule (5 sources)Vitamin DStart: 10-25-2018 End: 68-65-9386pwyd 1 capsule by mouth in the morningcholecalciferol, vitamin D3, (VITAMIN D3) 5,000 units capsule Take 1 capsule (5,000 Units total) bymouth in the morning. 0 10/25/2018 09/04/2025 Discontinued ()desogestrel 0.15 mg / ethinyl estradiol 0.03 mg oral tablet (11 sources)Progestin, EstrogenStart: 07-22-2024 End: 17-31-6283ywnxwmdeqmh-ethinyl estradiol (Apri) 0.15-30 MG-MCG tablet Indications: Dysmenorrhea, unspecified Take 1 tablet by mouth Daily 21 tablet 12 10/20/2024 01/19/2025 Discontinued (Other)diphenhydrAMINE (BENADryl) injection 25 mg (2 sources)Start: 11-30-2022 End: 47-63-4391cqcw 25 mg intravenously every six hours as neededdiphenhydrAMINE (BENADryl) injection 25 mgNorethindrone-E.Estradiol-Iron (1 source)EstrogenStart: 10-17-2017 End: 20-73-3516trna 1 tablet by mouth once dailyNorethindrone-E.Estradiol-Iron (Lo Loestrin Fe) 1 mg-10 mcg (24)/10 mcg (2) tablet Discontinued 1 TAB PO Daily October 17, 2017 1:00am March 12, 2019 6:15amEthinyl Estradiol / Norethindrone (7 sources)EstrogenStart: 12-01-2018 End: 12-21-9607tyvt 0.05 ug by mouth once in the eveningnorethindrone ac-eth estradiol (MICROGESTIN 1/20) 1-20 mg-mcg per tablet Take 1 tablet by mouth in t he evening. 0 12/01/2018 09/04/2025 Discontinued ()Start: 12-01-2018 take 0.05 ug by mouth once in the eveningnorethindrone ac-eth estradiol (MICROGESTIN 1/20) 1-20 mg-mcg per tablet Take 1 tablet by mouth in the evening. 0 12/01/2018 ActiveStart: 78-30-3154vwfl 1 tablet by mouth once dailyDasetta oral tablet 1 tab(s), Oral, Daily, Refill(s) 0, control/menstrual regulation Start Date: 11/23/16 Status: Orderedfamotidine 20 mg oral tablet (2 sources)Histamine-2 Receptor AntagonistStart: 11-30-2022 End: 54-17-5336espk 20 mg by mouth twice daily as needed for gastroesophageal reflux mlcoouk89 mg, Oral, 2 times daily PRN, heartburn, Starting on Constance 11/30/22 at 0608, Renal dose per pharmacy for peptic ulcer prophylaxis.ferrous sulfate 325 mg oral tablet (8 sources)Start: 11-30-2022 End: 60-64-7086tuhm 325 mg by mouth twice daily at ywtguzic755 mg, Oral, 2 times daily with meals, First dose on Constance 11/30/22 at 0800, Start if Hgb le ss than 10. End: 39-73-5165bgtb 1 tablet by mouth in the morningFerrous Sulfate (IRON PO) Take 1 tablet by mouth in the morning. 09/16/2025 Discontinuedtake 1 tablet by mouth in the morningFerrous Sulfate (IRON PO) Take 1 tablet by mouth in the morning. ActiveFLUoxetine 20 mg oral capsule (17 sources)Serotonin Reuptake InhibitorStart: 18-49-4656kwak 1 capsule by mouth once dailyFLUoxetine HCl - 20 MG Oral Capsule TAKE 1 CAPSULE Daily Quantity: 30 Refills: 11 Ordered: 02-Jun-2021 Kuldip DAY Charlene Start : 02-Jun-2021 Active Start: 11-02-2018 End: 22-54-3981cqrp 1 capsule by mouth once dailyFluoxetine (Prozac) 20 mg capsule Discontinued 20 MG PO Daily November 02, 2018 1:00am August 04, 2019 8:19amtake 1 capsule by mouth once dailyFLUoxetine (PROZAC) 10 mg capsule Take 10 mg by mouth once daily. 0 ActiveComment on above:Take 10 mg by mouth once daily.fluticasone propionate 0.05 mg/actuat metered dose nasal spray (16 sources)CorticosteroidStart: 06-22-2025 End: 23-10-1518usjs 1 spray(s) nasal route once dailyfluticasone (Flonase) 50 MCG/ACT nasal spray Indications: Sinusitis, unspecified chronicity, unspecified location Administer 1 spray into each nostril Daily Shake gently. Before first use, prime pump. After use, clean tip and replace cap. 16 g 12 06/22/2025 07/15/2025 Discontinued End: 58-72-7292qkwq 1 spray(s) nasal route in the morningfluticasone (Flonase) 50 MCG/ACT nasal spray Administer 1 spray into affected nostril(s) in the morn ing. 09/16/2025 Discontinued End: 96-39-9424vjie 1 spray(s) nasal route in the morningfluticasone propionate (FLONASE) 50 mcg/actuation nasal spray Administer 1 spray into each nostril in the morning. 09/04/2025 Discontinued ()lanolin 1000 mg/ml topical cream (2 sources)Start: 11-30-2022 End: 13-94-8222Ggkuqww, As needed, dry skin, nipple discomfort, Starting on Sun11/30/22 at 0608, Apply to affected area.500 ml magnesium sulfate 40 mg/ml injection (4 sources)Start: 11-28-2022 End: 64-34-4937bqtwwtvpg sulfate 20 GM/500ML infusionStart: 11-28-2022 End: 65-22-1625uczqjzsyz sulfate 20 GM/500ML infusion - Pyxis ADS Override Pull metoclopramide 10 mg oral tablet (2 sources)Dopamine-2 Receptor AntagonistStart: 05-01-6132urka 1 tablet by mouth every eight hoursReglan 10 MG 1 tablet before meals Orally tid for 30 day(s) March, Not-TakingmiSOPROStol 0.2 mg oral tablet (2 sources)Prostaglandin E1 AnalogStart: 11-30-2022 End: 24-31-7068zlVWVAOIrep (Cytotec) tablet 1,000 mcgStart: 11-30-2022 End: 66-35-1696nfWFNPFEird (Cytotec) tablet 1,000 mcgmiSOPROStol (Cytotec) split tablet 25 mcg (2 sources)Start: 11-28-2022 End: 67-53-8355oncp 1 tablet vaginal route every four hoursmiSOPROStol (Cytotec) split tablet 25 mcg1 ml morphine sulfate 4 mg/ml injection (4 sources)Opioid AgonistStart: 11-28-2022 End: 66-29-0030niuulchr sulfate (PF) injection 4 mgnitrofurantoin, macrocrystals 25 mg / nitrofurantoin, monohydrate 75 mg oral capsule (6 sources)Nitrofuran AntibacterialStart: 50-81-7958Ejrghponicbhfi Monohyd Macro 100 MG Oral Capsule TAKE 1 CAPSULE Other Please take one capsule aftersexual intercourse to prevent UTI Quantity: 30 Refills: 11 Ordered: 01-Apr-2021 Teri Chau MD Start : 01-Apr-2021 Active2 ml ondansetron 2 mg/ml injection (12 sources)Serotonin-3 Receptor AntagonistStart: 11-29-2022 End: 63-60-7599pawx 4 mg intravenously every six hours as needed for nausea and vomitingondansetron (Zofran) injection 4 mgStart: 24-11-9048jktp 1 tablet by mouth every six hours as needed for nauseaZofran 4 mg Tab 1 tab(s), Oral, q6hr, PRN Nausea, # 8, Refills(s) 0 Start Date: 07/14/22 Status: Ordered Quantity: 8.0 Unit: Repeat number: 1Start: 92-34-0790nomj 1 tablet by mouth three times daily Zofran 4 MG 1 tablet Orally THREE TIMES A DAY for 30 day(s) May, Not-Takingondansetron ODT (Zofran-ODT) disintegrating tablet 4 mg (2 sources)Start: 11-30-2022 End: 30-47-5502gwun 1 tablet by mouth every eight hours [...] for 1 hour. Then discontinue.Start: 11-29-2022 End: 22-84-0598zndbxvqs (Pitocin) 30 units in 500 mL infusionStart: 11-29-2022 End: 57-00-9382yxsavedm (Pitocin) 30 units in 500 mL infusionphenazopyridine hydrochloride 200 mg oral tablet (10 sources)Start: 61-88-5749wien 1 tablet by mouth three times dailyPyridium 200 mg Tab 200 mg = 1 tab(s), Oral, TID, Take one tab by mouth three times a day for threedays, # 9 tab(s), Refills(s) 0, Pharmacy: [facility] [id number], 157, cm, 03/04/21 7:22:00 EDT, Height/Length Dosing, 52, kg, 03/04/21 7:22:00 EDT, Weight Dosing Start Date: 03/04/21 Status: Ordered Quantity: 9.0 Unit: tab(s) Repeat number: 1predniSONE 10 mg oral tablet (3 sources)Start: 09-10-2023 End: 76-34-0487ifdr 2 tablets by mouth twice daily, then [...] 09/10/2023 01/10/2024 Discontinued (Therapy completed)Start: 03-12-2019 End: 14-84-1574drzm 3 tablets by mouth once daily at mealtimePrednisone 20 mg tablet Discontinued 60 MG PO Daily 9 March 12, 2019 12:00am August 04, 2019 8:18am administer with food or milkpromethazine hydrochloride 12.5 mg oral tablet (13 sources)PhenothiazineStart: 05-25-2025 End: 64-59-1774qniu 1 tablet by mouth every six hours [...] nausea. 30 tablet 2 508/ Discontinued End: 79-70-5695zpmg 12.5 mg rectal route every six hours as needed for nausea and vomitingpromethazine (PHENERGAN) 12.5 mg suppository Insert 1 suppository (12.5 mg total) into the rectum every 6 (six) hours as needed for nausea or vomiting. 09/04/2025 Discontinued ()rizatriptan 5 mg disintegrating oral tablet (5 sources)Serotonin-1b and Serotonin-1d Receptor AgonistStart: 10-24-2018 End: 50-87-7501lahezfoecin RELOCATION DIRECTOR (MAXALT-RELOCATION DIRECTOR) 5 mg disintegrating tablet Dissolve 1 tablet (5 mg total) on tongue asneeded. 0 10/24/2018 09/04/2025 Discontinued ()5 ml sodium chloride 9 mg/ml injection (2 sources)Start: 11-28-2022 End: mL, IntraVENous, Every 12 hours scheduled (2 times per day), First dose on Sun11/28/22 at 0900, Pre-Deliveryvitamin b12 1 mg extended release oral tablet (5 sources)Vitamin Y38Dkndb: 10-25-2018 End: 22-23-1425imqo 1 tablet by mouth in the morningcyanocobalamin, vitamin B- 12, (VITAMIN B-12) 1,000 mcg tablet extended release Take 1 tablet (1 mg total) by mouth in the morning. 0 10/25/2018 09/04/2025 Discontinued ()witch yesi 500 mg/ml medicated pad (2 sources)Start: 11-30-2022 End: 09-47-6968Zurepew, As needed, hemorrhoids, For perineal pain or discomfort, Starting on Sun11/30/22 at 0608, Apply to perineal area. Patient is capable and may self administer at bedside. Problems Active Problems Problem ClassificationProblemDateDocumented DateEpisodic/ChronicAllergic reactions (1 source)Allergic reaction; Translations: [Allergy, unspecified, initial encounter]38-30-3198QrpdcpaeBnfuehd on above:Problem List clean-up per request of Phys. EHR CmteAnxiety disorders (20 sources)Anxiety; Translations: [Anxiety state, unspecified]Onset: 10-08-2020 10-82-0479AkbhkdcHgialto on above:Problem List clean-up per request of Phys. EHR CmteCardiac dysrhythmias (20 sources)Paroxysmal tachycardia; Translations: [Paroxysmal tachycardia, unspecified]Onset: 820323-61-1113YxmvjqzDyqwierfqmsdr of surgical procedures or medical care (1 source)Postoperative retention of urine; Translations: [Other postprocedural complications and disorders of genitourinary system]45-27-7644BnbcaagoZuocryk on above:Problem List clean-up per request of Phys. EHR CmteDiabetes mellitus without complication (2 sources)Abnormal glucose tolerance test; Translations: [Other abnormal glucose]47-19-2895GovftryhIzmvsmxc or abnormal glucose tolerance complicating ; childbirth; or the puerperium (20 sources)Gestational diabetes mellitus; Translations: [Gestational diabetes mellitus in , diet controlled]Onset: 025537-60-2371Zmarnmip Endometriosis (20 sources)Endometriosis (clinical); Translations: [Endometriosis, site unspecified]Onset: 32-31-6970RvvouxlXmhqiyvcf hypertension (20 sources)Hypertensive disorder; Translations: [Essential (primary) hypertension]Onset: 861433-73-0302WaoidzzZlfmlhxkxrtes symptoms and ill- defined conditions (20 sources)Microscopic hematuria; Translations: [Nocturia]46-20-1118Mmavvmhx Comment on above:Problem List clean-up per request of Phys. EHR CmteHeadache; including migraine (20 sources)Migraine; Translations: [Migraine, unspecified, not intractable, without status migrainosus]Onset: 135386-28-6626QuylajrWpjmbvb on above: Problem List clean-up per request of Phys. EHR CmteHeadache; including migraine (14 sources)Headache; Translations: [Headache, unspecified]Onset: 01-31-2023 68-13-0305BjxdgbqxWzmjiyblbyr (1 source)Hemorrhoids; Translations: [Unspecified hemorrhoids]Onset: 07-14-2022 EpisodicHypertension complicating ; childbirth and the puerperium (20 sources)Hypertension complicating ; Translations: [Unspecified maternal hypertension, unspecified trimester]Onset: hronic Hypertension complicating ; childbirth and the puerperium (16 sources)Severe pre-eclampsia complicating childbirth; Translations: [Severe pre-eclampsia, third trimester]Onset: 82-69-3888BvmugrzfPhgdf disorders and dislocations; trauma-related (20 sources)Disorder of left patellofemoral joint; Translations: [Patellofemoral disorders, left knee]Onset: 360950-35-8968ItzzacvPalzp disorders and dislocations; trauma-related (20 sources)Disorder of right patellofemoral joint; Translations: [Patellofemoral disorders, right knee]Onset: hronic Menstrual disorders (20 sources)Dysmenorrhea; Translations: [Dysmenorrhea, unspecified]Onset: 637796-62-1085UsrjtixKhgxqx and vomiting (1 source)Nausea and vomiting; Translations: [Nausea with vomiting, unspecified] EpisodicNonspecific chest pain (2 sources)Chest pain; Translations: [Chest pain, unspecified]98-07-5798Kcqumcko Comment on above:Problem List clean-up per request of Phys. MIKAYLA CmteNutritional deficiencies (20 sources)Vitamin D deficiency; Translations: [Vitamin D deficiency, unspecified]Onset: 041133-70-4724SpjeobeIiabz acquired deformities (20 sources)Scoliosis deformity of spine; Translations: [Scoliosis, unspecified] Onset: 152057-57-8439QhpnndwEjuxo bone disease and musculoskeletal deformities (10 sources)Disorder of pnxj85-81-6791RlfsmznsWhthrit on above:right shoulder right shoulderOther circulatory disease (1 source)Elevated blood-pressure reading without diagnosis of hypertension; Translations: [Elevated blood-pressure reading, without diagnosis of hypertension]Onset: 78-99-9556QfkxndixHkqnw complications of ; puerperium affecting management of mother (1 source)Delayed AND/OR secondary hemorrhage; Translations: [Delayed and secondary hemorrhage]Onset: 22-94-5423GhpbqwxcDwvvg complications of (1 source)Finding related to ; Translations: [Other specified related conditions, unspecified trimester]Onset: 91-25-1078DkcbficaPimkq complications of (1 source)Supervision of with other poor reproductive or obstetric history, unspecified trimester; Translations: [Supervision of with other poor reproductive or obstetric history, unspecified trimester]Onset: 35-59-3688ToppfsocOffzo connective tissue disease (1 source)Diastasis recti; Translations: [Separation of muscle (nontraumatic), other site]EpisodicOther female genital disorders (10 sources)Abnormal uterine fgowdauj07-73-7988HnewildVljmc female genital disorders (1 source)Dyspareunia; Translations: [Other specified dyspareunia]ChronicOther female genital disorders (20 sources)Pain in female genitalia on intercourse; Translations: [Unspecified dyspareunia]Onset: 055748-65-6202AwafnlyIqffj female genital disorders (1 source)Unspecified dyspareunia; Translations: [Unspecified dyspareunia]Onset: 52-04-5103AjeisxkYpqew female genital disorders (2 sources)Pelvic floor dysfunction; Translations: [Other specified conditions associated with female genital organs and menstrual cycle]EpisodicOther gastrointestinal disorders (18 sources)Constipation; Translations: [Constipation, unspecified]Onset: 613184-47-8359YduanijlLkgzduh on above:Problem List clean-up per request of Phys. EHR CmteOther gastrointestinal disorders (1 source)Constipation, unspecified; Translations: [Constipation, unspecified] Onset: 32-32-5054HiupclgjNozss hereditary and degenerative nervous system conditions (20 sources)Finding of scapular structure; Translations: [Other specified extrapyramidal and movement disorders]Onset: 587753-56-4281FciwubkUjruq nervous system disorders (9 sources)Chronic pain; Translations: [Other chronic pain]Onset: 03-29-2023 31-07-5758CtkzazlNyaxb nervous system disorders (1 source)Other chronic pain; Translations: [Chronic pelvic pain in female] Onset: 91-38-1988KuxhxbbMvgjh nervous system disorders (1 source)Paresthesia of left upper limb; Translations: [Paresthesia of skin] 83-72-4504NdrqxacnGdcjxhq on above:Problem List clean-up per request of Phys. EHR CmteOther nervous system disorders (1 source)Tremor; Translations: [Tremor, unspecified]22-42-2869QxpvddusCcvnams on above:Problem List clean-up per request of Phys. EHR CmteOther nutritional; endocrine; and metabolic disorders (20 sources)Body mass index 30+ - obesity; Translations: [Obesity, unspecified] Onset: 908050-04-0821BbreqquZycjm and delivery including normal (18 sources); Translations: [Encounter for supervision of normal , unspecified, unspecified trimester]76-97-4866JicxwmdeMmtfg screening for suspected conditions (not mental disorders or infectious disease) (8 sources)Elevated liver enzymes level; Translations: [Other specified abnormal findings of blood chemistry]Onset: 04-18-2022 Resolved: 95-28-8483KjshjtglEndli upper respiratory disease (20 sources)Allergic rhinitis due to pollen; Translations: [Allergic rhinitis due to pollen]Onset: 826014-71-8358BcclbgiPfbnv upper respiratory infections (2 sources)Sinusitis; Translations: [Chronic sinusitis, unspecified]06-22-2025 ChronicResidual codes; unclassified (2 sources)Contraception ; Translations: [Other specified health status] 62-60-5001TblbxxhyBpqhqlrh codes; unclassified (2 sources)Gestation period, 13 weeks; Translations: [13 weeks gestation of ]92-29-5666GjhpjfcsQdaixikj codes; unclassified (2 sources)Gestation period, 17 weeks; Translations: [17 weeks gestation of ]91-56-2254CmbcgaicBgtiygvr codes; unclassified (2 sources)Gestation period, 20 weeks; Translations: [20 weeks gestation of ]21-71-3737QogtrtdqJcepjfyd codes; unclassified (2 sources)Gestation period, 24 weeks; Translations: [24 weeks gestation of ]30-94-9020RyrhgbluAaiudwrm codes; unclassified (2 sources)Gestation period, 26 weeks; Translations: [26 weeks gestation of ]54-69-0741ZvncjiitGtclarne codes; unclassified (2 sources)Gestation period, 27 weeks; Translations: [27 weeks gestation of ]81-06-2377CjfhnxrjVezrjkeg codes; unclassified (1 source)Gestation period, 28 weeks; Translations: [28 weeks gestation of ]24-08-7326KjvqazyhYyeeckzw codes; unclassified (1 source)28 weeks gestation of ; Translations: [28 weeks gestation of ]Onset: 79-66-8320UjqtumooKozqbcvn codes; unclassified (2 sources)Gestation period, 29 weeks; Translations: [29 weeks gestation of ]29-22-5423XroicmioDwmiyahk codes; unclassified (2 sources)Gestation period, 31 weeks; Translations: [31 weeks gestation of ]72-43-0207PyuyjexmTwcinnwufdu; intervertebral disc disorders; other back problems (20 sources)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; Translations: [Other cervical disc displacement, unspecified cervical region] Onset: 013502-97-5439BiunyuoDehabrjxphyh (1 source)MFM consultOnset: 52-56-6183Gruodfakfcef (1 source)Gestational DiabetesOnset: 55-75-0664Pwgwenq tract infections (20 sources)Recurrent urinary tract infection; Translations: [Urinary tract infection, site not specified]Onset: 784476-11-2433Pegqkkqf Past or Other Problems Problem ClassificationProblemDateDocumented DateEpisodic/ChronicAbdominal pain (20 sources)Epigastric pain; Translations: [Epigastric pain]Onset: 07-14-2022 EpisodicAcquired foot deformities (20 sources)Acquired equinus deformity of foot; Translations: [Other acquired deformities of unspecified foot]Onset: 124211-27-2797TmcxtkyyIznwhks dysrhythmias (20 sources)Tachycardia; Translations: [Tachycardia, unspecified]Onset: 718119-73-4398DuxysjnvCjbmvttcyms deficiencies (20 sources)Cobalamin deficiency; Translations: [Deficiency of other specified B group vitamins]Onset: 484292-59-9473AswsvnexVazpp connective tissue disease (20 sources)Posterior calcaneal exostosis; Translations: [Calcaneal spur, unspecified foot]Onset: 193751-64-7620VawvwbunWsapg disorders of stomach and duodenum (20 sources)Gastroparesis syndrome; Translations: [Gastroparesis]Onset: 572149-63-1347ThilgmydFwcjv female genital disorders (1 source)Other specified conditions associated with female genital organs and menstrual cycle; Translations:[High-tone pelvic floor dysfunction]Onset: 09-10-0786VketnzqpTpkqp female genital disorders (20 sources)Chronic pelvic pain of female; Translations: [Chronic pelvic pain in female]Onset: 584833-66-4926LxrltfpzOlbga gastrointestinal disorders (20 sources)Swallowing painful; Translations: [Dysphagia, unspecified]Onset: 089758-56-7287WfppqvmrYtagc gastrointestinal disorders (20 sources)Diarrhea; Translations: [Diarrhea, unspecified]Onset: 03-24-2025 70-51-5864WvksfdylVewzo non-traumatic joint disorders (20 sources)Chronic pain of right upper limb; Translations: [Pain in right shoulder]Onset: 745977-42-1877HnybhpgrPmbsc nutritional; endocrine; and metabolic disorders (16 sources)Loss of appetite; Translations: [Anorexia]Onset: 05-27-2020 13-60-2838PnxtnobzTbmyjyt (15 sources)Vasovagal syncope; Translations: [Syncope and collapse]Onset: 466160-59-3485DbhhjmxiMbwjywpsebah (9 sources)PregnancyOnset: 07-14-2022 Resolved: 372879-40-2409SJZSQCV: Highlighted row has been ruled out! Unclassified (1 source)No known active pukituzc43-05-0455 Results Test NameValueInterpretationReference RangeFacilityUS OB BPP W NON-STRESS on 18[place]95[place] [address] Ultrasound Report Signed Patient: JUHI GAMA MR#: [id number] : 1995 Acct:[id number] Age/Sex: 30 / F ADM Date: 10/03/25 Loc: US Attending Dr: Steph Keane Ordering Physician: Steph Keane Date of Service: 10/03/25 Procedure(s): US OB BPP w non-stress Accession Number(s): [id number] cc: Steph Keane; KAFTAN,G KENNETH The [address] [address] Patient Name: JUHI GAMA MRN: [facility]:[id number] date: 1995 Sex: F Assigned Patient Location: US Current Patient Location: Accession/Order Number: [id number] Exam Date: 10/03/2025 10:53 Report Date: 10/03/2025 [...] Faria M.D. 10/03/2025 11:36 AM Dictation Location: [place] [address] Electronically authenticated by: [id number] Y Date: 10/03/2025 11:36 Dictated By: Will Faria M.D. Signed By: 10/03/25 1138 DD/ 1136 TD/TT: Bonbon Cream Warmer:TBHRadiology, Radiologist, MD - 10/03/2025 [place] [address] Ultrasound Report Signed Patient: JUHI GAMA MR#: [id number] : 1995 Acct:[id number] Age/Sex: 30 / F ADM Date: 10/03/25 Loc: US Attending Dr: Steph Keane Ordering Physician: Steph Keane Date of Service: 10/03/25 Procedure(s): US OB BPP w non-stress Accession Number(s): [id number] cc: Steph Keane; Yomaira BELTRAN [place] [id number] Patient Name: JUHI GAMA MRN: [id number] date: 1995 Sex: F Assigned Patient Location: US Current Patient Location: Accession/Order Number: [id number] Exam Date: 10/03/2025 10:53 Report Date: 10/03/2025 [...] Faria M.D. 10/03/2025 11:36 AM Dictation Location: [place] [address] Electronically authenticated by: [id number] Y Date: 10/03/2025 11:36 Dictated By: Will Faria M.D. Signed By: 10/03/25 1138 DD/ 1136 TD/TT: Bonbon Cream Warmer: [facility] HealthcareRadiology Study observation (narrative)[facility] HealthcareUS OB BPP W NON-STRESSOrdered By: Radiologist Radiology on 10-03-8112[facility] Work Phone: Urinalysis macro (dipstick) panel (U)on 09-30-2025 Bilirubin, UANegativeNegative - 4(70) +++ mg/dLNOMS HealthcareBlood, UANegative Negative - 50 Teodoro/mcLNOMS HealthcareClarity, UAClearNOMS HealthcareColor, UA YellowNOLA HealthcareGlucose, UANegativeNegative - 2000(110) ++++ mg/dLNOLA HealthcareInterpretation and review of laboratory resultsNormalNOEl[facility] Ketones, UANegativeNegative - 160(16) ++++ mg/dLNOLA HealthcareLeukocytes, UA NegativeNegative - 500+++ Robinson/mcLNOLA HealthcareNitrite, UANegativeNegative - PositiveNOLA HealthcarepH, UA6.05 - 9NOLA HealthcareProtein, UANegativeNegative - 2000(20) ++++ mg/dLNOLA HealthcareSpec Grav, UA1.0101 - 1.03[facility] Urobilinogen, UA1.00.2 - 12 mg/dLNOPhelps Health HealthcareUS OB BPP W NON-STRESSon 09-11-0818Phv[place] [address] Ultrasound Report Signed Patient: JUHI GAMA MR#: [id number] : 1995 Acct:[id number] Age/Sex: 30 / F ADM Date: 09/26/25 Loc: US Attending Dr: Steph Keane Ordering Physician: Steph Keane Date of Service: 09/26/25 Procedure(s): US OB BPP w non-stress Accession Number(s): [id number] cc: Steph Keane; Yomaira BELTRAN [place] [id number] Patient Name: JUHI GAMA MRN: [id number] date: 1995 Sex: F Assigned Patient Location: Current Patient Location: Accession/Order Number: [id number] Exam Date: 09/26/2025 11:50 Report Date: 09/26/2025 14:50 At the request of: STEPH KEANE Procedure: US OB BPP w non-stress Ultrasound biophysical profile INDICATION: -induced hypertension COMPARISON: 09/19/2025 FINDINGS IMPRESSION: Cephalic position. 8 out of 8 score biophysical profile. LEONEL 11.6 cm. heart 129 bpm Impression dictated by: Chu Amaya M.D. 09/26/2025 2:50 PM Dictation Location: RADIO-PC-29 Electronically authenticated by: [id number] Y Date: 09/26/2025 14:50 Dictated By: Chu Amaya M.D. Signed By: 09/26/25 1452 DD/ 49 TD/TT: Bonbon Cream Warmer:TBHRadiology, Radiologist, - 09/26/2025 [place] [address] Ultrasound Report Signed Patient: JUHI GAMA MR#: [id number] : 1995 Acct:[id number] Age/Sex: 30 / F ADM Date: 09/26/25 Loc: US Attending Dr: Steph Keane Ordering Physician: Steph Keane Date of Service: 09/26/25 Procedure(s): US OB BPP w non-stress Accession Number(s): [id number] cc: Le Keane G ROBERT [place] [address] Patient Name: JUHI GAMA MRN: [facility]:[id number] date: 1995 Sex: F Assigned Patient Location: Current Patient Location: Accession/Order Number: [id number] Exam Date: 09/26/2025 11:50 Report Date: 09/26/2025 14:50 At the request of: STEPH KEANE Procedure: US OB BPP w non-stress Ultrasound biophysical profile INDICATION: -induced hypertension COMPARISON: 09/19/2025 FINDINGS IMPRESSION: Cephalic position. 8 out of 8 score biophysical profile. LEONEL 11.6 cm. heart 129 bpm Impression dictated by: Chu Amaya M.D. 09/26/2025 2:50 PM Dictation Location: RADIO-PC-29 Electronically authenticated by: [id number] Y Date: 09/26/2025 14:50 Dictated By: Chu Amaya M.D. Signed By: 09/26/25 145 DD/ 145 TD/TT: Bonbon Cream Warmer: LANETTE HealthcareRadiology Study observation (narrative)NOMS HealthcareUS OB BPP W NON-STRESSOrdered By: Radiologist Radiology on 40-25-8718GM[facility] Work Phone: US OB BPP W NON-STRESSon [phone], [place] [address] Ultrasound Report Signed Patient: JUHI GAMA MR#: [id number] : 1995 Acct:[id number] Age/Sex: 30 / F ADM Date: 09/19/25 Loc: US Attending Dr: Steph Keane Ordering Physician: Steph Keane Date of Service: 09/19/25 Procedure(s): US OB BPP w non-stress Accession Number(s): [id number] cc: Steph Keane; Yomaira BELTRAN [place] [phone] Patient Name: JUHI GAMA MRN: [facility]:[id number] date: 1995 Sex: F Assigned Patient Location: [facility] Current Patient Location: Accession/Order Number: [id number] Exam Date: 09/19/2025 10:06 Report Date: 09/19/2025 [...] Morillo M.D. 09/19/2025 12:17 PM Dictation Location: [employer] Electronically authenticated by: [id number] Y Date: 09/19/2025 12:17 Dictated By: Jp Morillo D.O. Signed By: 09/19/25 1219 DD/ 16 TD/TT: Bonbon Cream Warmer:SATNAMadiolRandell malagon, - 09/19/2025 [place] [id number] Ultrasound Report Signed Patient: JUHI GAMA MR#: [id number] : 1995 Acct:[id number] Age/Sex: 30 / F ADM Date: 09/19/25 Loc: US Attending Dr: Steph Keane Ordering Physician: Steph Keane Date of Service: 09/19/25 Procedure(s): US OB BPP w non-stress Accession Number(s): [id number] cc: Steph Keane; Yomaira BELTRAN [place] [phone] Patient Name: JUHI GAMA MRN: [facility]:[id number] date: 1995 Sex: F Assigned Patient Location: [facility] Current Patient Location: Accession/Order Number: [id number] Exam Date: 09/19/2025 10:06 Report Date: 09/19/2025 [...] Morillo M.D. 09/19/2025 12:17 PM Dictation Location: [employer] Electronically authenticated by: [id number] Y Date: 09/19/2025 12:17 Dictated By: Jp Morillo D.O. Signed By: 09/19/25 1219 DD/ 16 TD/TT: Bonbon Cream Warmer: LANETTE HealthcareRadiology Study observation (narrative)NOMS HealthcareUS OB BPP W NON-STRESSOrdered By: Radiologist Radiology on 94-79-1653LGTDBarton County Memorial Hospital Work Phone: Urinalysis macro (dipstick) panel (U)on 09-16-2025 Bilirubin, UANegativeNegative - 4(70) +++ mg/dLBarton County Memorial HospitalBlood, UANegative Negative - 50 Teodoro/mcLBarton County Memorial HospitalClarity, UAClearNOLA HealthcareColor, UA YellowNOEllett Memorial HospitalGlucose, UANegativeNegative - 2000(110) ++++ mg/dLBarton County Memorial HospitalInterpretation and review of laboratory resultsNormalB[facility] County [facility] Hospital Ketones, UANegativeNegative - 160(16) ++++ mg/dLBarton County Memorial HospitalLeukocytes, UA NegativeNegative - 500+++ Robinson/[facility] CenterNitrite, UANegativeNegative - PositiveBRIGHAM CITY COMM[facility]ITY [facility]PITAL HealthcarepH, UA6.05 - 9NOLA HealthcareProtein, UANegativeNegative - 2000(20) ++++ mg/dLBarton County Memorial HospitalSpec Grav, UA1.0101 - 1.03[facility] Urobilinogen, UA1.00.2 - 12 mg/dLCass Medical Center HealthcareALL BUNon 72-80-9333Xcbk nitrogen [Mass/Vol]8 mg/dL7.0 - 18.0 mg/dLLee's Summit Hospital URIC ACIDon 13-55-3166Bmwmu [Mass/Vol]3.5 mg/dL2.6 - 6.0 mg/dLBarton County Memorial HospitalCC ALT on 03-80-2989FCY [Catalytic activity/Vol]40 U/L14 - 59 U/[facility] LouisCCF AST on 12-78-4922MNP [Catalytic activity/Vol]24 U/L15 - 37 U/[facility]. LouisNo Panel Informationon 37-84-6356Qsnhmctckfajze and review of laboratory results AbnormalNOEllett Memorial HospitalCLINISYNCNResearch Psychiatric CenterTB CREATININEon 09-03-2025 Creatinine [Mass/Vol]0.42 mg/dLLow0.55 - 1.02 mg/dLBarton County Memorial HospitalGFR/1.73 sq M.predicted CKD-EPI (S/P/Bld) [Vol rate/Area]>60>=60 mL/min/1.73m 2NResearch Psychiatric CenterTB EGFR-NON AF VIETNAMESE>60>=60 mL/min/1.73m 2NOMS HealthcareTB URINE T PROTEIN CREAT RATIOon 41-08-9612RZPMHPURHV URINE RANDOM<13.15Nnl69.00 - 300.00 mg/dLNOLA HealthcareTOTAL PROTEIN URINE RANDOM<6.0NINF - 11.9 mg/dLBRIGHAM CITY COMMUNITY [facility]OSPITAL HealthcareUrinalysis macro (dipstick) panel (U)on 79-32-1567Ajtysgdzb, UA NegativeNegative - 4(70) +++ mg/dLBRIGHAM CITY COMMUNITY HOSPITAL HealthcareBlood, UANegativeNegative - 50 Teodoro/mcLBRIGHAM CITY COMMUNITY HOSPITAL HealthcareClarity, UAClearNOLA HealthcareColor, UAYellowNOLA HealthcareGlucose, UANegativeNegative - 2000(110) ++++ mg/dLBRIGHAM CITY COMMUNITY HOSPITAL Healthcare Interpretation and review of laboratory resultsNormalBRIGHAM CITY [facility]OSP[facility] HealthcareKetones, UA NegativeNegative - 160(16) ++++ mg/dLBRIGHAM CITY COMMUNITY HOSPITAL HealthcareLeukocytes, UANegative Negative - 500+++ Robinson/[facility] Medical CenterNitrite, UANegativeNegative - Positive NOM HealthcarepH, UA6.55 - 9NOLA HealthcareProtein, UANegativeNegative - 2000(20) ++++ mg/dLBRIGHAM CITY COMMUNITY HOSPITAL HealthcareSpec Grav, UA1.0051 - 1.03N[facility]A Healthcare Urobilinogen, UA2.00.2 - 12 mg/dLNovant Health Medical Park HospitalTB TOTAL PROTEIN 24 HOUR URINEon 78-91-0025Tilnwejjdpjeoq and review of laboratory results AbnormalNOLA HealthcareProtein (U) [Mass/Vol]22.6 mg/dLHighNINF - 11.9 mg/dLBarton County Memorial HospitalTB TOTAL PROTEIN 24 HOUR ECHBB887.6NINFNOEllett Memorial HospitalTOTAL VOLUME 24 HOUR ZNKRS444iF/24hrNOLA HealthcareCLINISYNCNMCBRIDE ORTHOPEDIC [facility] HealthcareALL CBC WITH AUTO DIFFon 94-92-3858OBZVXBOHV ABSOLUTE AUTO0.1NOMS HealthcareBasophils/100 WBC (Bld)0.5 %0.2 - 2.0 %NOMS HealthcareEosinophils/100 WBC (Bld)1.4 %0.9 - 7.0 % [facility] HealthcareErythrocyte distribution width (RBC) [Ratio]13 %11.0 - 15.0 %[facility] HealthcareHematocrit (Bld) [Volume fraction]34.4 %Low36.0 - 48.0 %[facility] HospitalHemoglobin (Bld) [Mass/Vol]11.3 g/dLLow12.0 - 16.0 g/dLBarton County Memorial Hospital IMMATURE GRANULOCYTES ABS AUTO0.59HighNOLA HealthcareImmature granulocytes/100 WBC (Bld)4.4 %High0.0 - 0.5 %[facility] HospitalInterpretation and review of laboratory resultsAbnormalNOLA HealthcareLYMPHOCYTES ABSOLUTE AUTO2.4NOLA HealthcareLymphocytes/100 WBC (Bld)17.8 %Low20.5 - 60.0 %[facility] HealthH (RBC) [Entitic mass]29.4 pg26.7 - 34.0 pgNOFreeman Heart InstituteHC (RBC) [Mass/Vol] 32.8 g/dL29.9 - 35.2 g/dLBarton County Memorial HospitalMCV (RBC) [Entitic vol]89.4 fL81.0 - 99.0 fLBarton County Memorial HospitalMONOCYTES ABSOLUTE AUTO1.1HighNOLA HealthcareMonocytes/100 WBC (Bld)8.1 %1.7 - 12.0 %[facility] HospitalNEUTROPHILS ABSOLUTE KRJR4IkvaSNXC HealthcareNeutrophils/100 WBC (Bld)67.8 %43.0 - 75.0 %[facility] HospitalPlatelet mean volume (Bld) [Entitic vol]9.6 fL9.5 - 13.5 fLBarton County Memorial HospitalTBH EO #0.2NOMS [facility] HospitalTB YOH365OSRR [facility] RBC3.85LowNOMS [facility] WBC13.3High [facility] HospitalCLINISYNRoper St. Francis Mount Pleasant HospitalTB URINE T PROTEIN CREAT RATIOon 64-35-0511QCLAOTBTYI URINE RANDOM<13.73Nie15.00 - 300.00 mg/dLBarton County Memorial Hospital Interpretation and review of laboratory resultsAbnormalBarton County Memorial HospitalTOTAL PROTEIN URINE RANDOM<6.0NINF - 11.9 mg/dLBarton County Memorial HospitalCLINISYNRoper St. [facility] US OB BPP W NON-STRESSon 52-25-8643[address] [address] Ultrasound Report Signed Patient: JUHI GAMA MR#: [id number] : 1995 Acct:[id number] Age/Sex: 30 / F ADM Date: Loc: [facility] 250-[address]: KUNAL HYATT M.D. Ordering Physician: Steph Keane Date of Service: 08/27/25 Procedure(s): US OB BPP w non-stress Accession Number(s): [id number] cc: Steph Keane; Yomaira BELTRAN [place] [address] Patient Name: JUHI GAMA MRN: [facility]:[id number] date: 1995 Sex: F Assigned Patient Location: LAB Current Patient Location: LAB Accession/Order Number: [id number] Exam Date: 08/27/2025 17:37 Report Date: 08/27/2025 [...] Morillo M.D. 08/27/2025 6:02 PM Dictation Location: [place] [address] Electronically authenticated by: [id number] Y Date: 08/27/2025 18:02 Dictated By: Jp Morillo D.O. Signed By: 08/27/251804 DD/ 01 TD/TT: Bonbon Cream Warmer:SATNAMadiology, Radiologist, MD - 08/27/2025 [place] [address] Ultrasound Report Signed Patient: JUHI GAMA MR#: [id number] : 1995 Acct:[id number] Age/Sex: 30 / F ADM Date: Loc: [facility] 250-[address]: KUNAL HYATT M.D. Ordering Physician: Steph Keane Date of Service: 08/27/25 Procedure(s): US OB BPP w non-stress Accession Number(s): [id number] cc: Steph Keane; Yomaira BELTRAN [place] [phone] Patient Name: JUHI GAMA MRN: [facility]:[id number] date: 1995 Sex: F Assigned Patient Location: LAB Current Patient Location: LAB Accession/Order Number: [id number] Exam Date: 08/27/2025 17:37 Report Date: 08/27/2025 [...] Morillo M.D. 08/27/2025 6:02 PM Dictation Location: [place] [address] Electronically authenticated by: [id number] Y Date: 08/27/2025 18:02 Dictated By: Jp Morillo D.O. Signed By: 08/27/251804 DD/ 01 TD/TT: Bonbon Cream Warmer: LANETTE HealthcareRadiology Study observation (narrative)NOMShalonda SmallUS OB BPP W NON-STRESSOrdered By: Radiologist Radiology on 35-70-0099ZXOY Healthcare Work Phone: Urinalysis macro (dipstick) panel (U)on 08-27-2025 Bilirubin, UANegativeNegative - 4(70) +++ mg/dLNOMS HealthcareBlood, UANegative Negative - 50 Teodoro/mcLNOMS HealthcareClarity, UAClearNOMS HealthcareColor, UA YellowNOMS HealthcareGlucose, UANegativeNegative - 2000(110) ++++ mg/dLNOMS HealthcareInterpretation and review of laboratory resultsNormalBarton County Memorial Hospital Ketones, UANegativeNegative - 160(16) ++++ mg/dLBRIGHAM CITY [facility] HealthcareLeukocytes, UA NegativeNegative - 500+++ Robinson/mcLNOLA HealthcareNitrite, UANegativeNegative - PositiveNOLA HealthcarepH, UA65 - 9NOLA HealthcareProtein, UANegativeNegative - 2000(20) ++++ mg/dLBRIGHAM CITY COMM[facility]ITY [facility]PITAL HealthcareSpec Grav, UA1.0151 - 1.03N[facility] Healthcare Urobilinogen, UA2.00.2 - 12 mg/dLNOLA HealthcareNOLA HealthcareURINE CULTURE, ROUTINEon 75-03-0419Uiphjrju identified Cx Nom (U) Urine Culture, Routine NOMS HealthcareBacteria identified Cx Nom (U)Mixed urogenital floraNOLA HealthcareBacteria identified Cx Nom (U)25,000-50,000 colony forming units per mLNOMS HealthcareBacteria identified Cx Nom (U)Performed at: - [facility] NOMS HealthcareBacteria identified Cx Nom (U)[address] [place] [address] [id number] HealthcareBacteria identified Cx Nom (U)Credit Coordinator: Cm Sandoval PhD, Phone: [phone] HealthcareCLINISYNTAUNTON STATE HOSPITAL Ijpylojwhc6nw hr Glucose Tolerance 100 gm loadon 14-05-0396Rachdmt Tolerance Test 2 Lplo231 [facility]view HospitalCapillary Glucose POCon 73-57-1964Mnyjipp [Mass/Vol]88 mg/aHAlhlcw16-34KnlfirMain Campus Medical CenterComment on above:Performed By: #### [id number] #### [facility] [address], [place] [address]Quu 1 Hron 42-75-2278Zhiniwo [Mass/Vol]152 mg/yZCgtslb46-876 [facility] Medical CenterComment on above:Performed By: #### [id number] #### [facility] [address], [place] [address]Tbn 2 Hron 93-78-4776Sipnoir [Mass/Vol]169 mg/nFWlta94-189 [facility] CenterComment on above:Performed By: #### [id number] #### [facility] [address], [place] [address]Fpq 3 Hron 70-04-5003Unzilus [Mass/Vol]141 mg/oNIpuh33-098 [facility] CenterComment on above:Performed By: #### [id number] #### [facility] [address], [place] [address]Aao Fastingon 59-72-4552Kkuvoqt [Mass/Vol]82 mg/nGZsvevv71-38 [facility] CenterComment on above:Performed By: #### [id number] #### [facility] [address], [place] [address]Bswimje tolerance, 1 houron 74-15-9736Vtpcwwm Tolerance Test 1 Yzpo439SfaBqkhfm Health SystemGlucose tolerance, 3 hourson 90-53-2008Kjlzrgz Tolerance Test 3 Iols630PvpXlopiz Health SystemGlucose, tolerance fastingon 14-58-5477Ruytofj Tolerance Test Zmedcqx06CkoMhrnyx Health SystemNo Panel Informationon 00-15-4175TtnEvkvgsCleveland Clinic Fairview HospitalCBC w/ Auto Diffon 08-12-2025 Basophil Absolute0.1 E9/LNormal0.0-0.2[facility] BaltimoreComment on above:Performed By: #### [id number] #### [facility] [address] [place] [address]Aqlldddzq/100 WBC (Bld)0.6 %Normal0.0-2.0[facility] Medical CenterComment on above:Performed By: #### [id number] #### [facility] [address], [place] [address]Irg Absolute0.1 E9/LNormal0.0-0.5[facility] Comment on above:Performed By: #### [id number] #### [facility] [address] [place] [address]Xyakhstqdzg/100 WBC (Bld)1.0 %Normal0.0-8.0[facility] Medical CenterComment on above:Performed By: #### 5243089 #### [facility] [address], [place] [address]Mfevlajvwzx distribution width (RBC) [Ratio]12.9 %Normal 10.9-14.2FTriHealth Bethesda Butler HospitalComment on above:Performed By: #### [id number] #### [facility] [address], [place] [address]Fnsbqbfyys (Bld) [Volume fraction]33.1 %Low34.0-46.0[facility] Medical CenterComment on above:Performed By: #### [id number] #### [facility] [address] [place], [place] [address]Nzuhpgdble (Bld) [Mass/Vol]11.4 g/dLLow12.0-16.0[facility] Medical CenterComment on above:Performed By: #### [id number] #### [facility] [address] [place] [address]Ivfom Absolute2.0 E9/LNormal1.0-4.0[facility] Comment on above:Performed By: #### [id number] #### [facility] [address], [place] [address]Ktqlgewpono/100 WBC (Bld)19.6 %Rtdghb29.0-50.0[facility] Medical CenterComment on above:Performed By: #### [id number] #### [facility] [address], [place] [address]KWH (RBC) [Entitic mass]29.9 luKzwcpr88.0-34.0[facility] Medical CenterComment on above:Performed By: #### [id number] #### [facility] [address], [place] [address]GPZL (RBC) [Mass/Vol]34.4 g/pURgpdaq75.4-36.0[facility] CenterComment on above:Performed By: #### [id number] #### [facility] [address], [place] [address]PYJ (RBC) [Entitic vol]86.7 zFHwlmsh63.0-100.0[facility] Medical CenterComment on above:Performed By: #### 6663925 #### [facility] [address] [place], [place] [address]Oyko Absolute0.5 E9/LNormal0.2-1.0[facility] Comment on above:Performed By: #### [id number] #### [facility] [address] [place], [place] [address]Kfkvcdyxf/100 WBC (Bld)4.6 %Normal4.0-14.0[facility] Medical CenterComment on above:Performed By: #### [id number] #### [facility] [address] [place], [place] [address]Dqmzah Absolute7.5 E9/LNormal2.0-7.5FTriHealth Bethesda Butler Hospital Comment on above:Performed By: #### [id number] #### [facility] [address] [place] [address]Ngvkjr Auto74.2 %Umckuw81.0-75.0[facility] Comment on above:Performed By: #### [id number] #### [facility] [address] [place] [address]Woskoskv492.0 E9/NWldzss672.0-500.0[facility] Comment on above:Performed By: #### [id number] #### [facility] [address] [place] [address]Ixaabixl mean volume (Bld) [Entitic vol]8.1 fLNormal6.4-10.8 [facility] CenterComment on above:Performed By: #### 6012434 #### [facility] [address], [place] [address]VEU3.8 E12/LLow4.3-5.9[facility] CenterComment on above:Performed By: #### [id number] #### [facility] [address] [place] [address]BLW51.1 E9/LNormal4.0-11.0[facility] CenterComment on above:Performed By: #### [id number] #### [facility] [address], [place] [address]Mopqcagznt 89-82-5975Myspjgno Lvl7 ng/nGPel74-574KgqfrwMain Campus Medical CenterComment on above:Performed By: #### [id number] #### [facility] [address], [place] [address]Twspshax 99-36-9814Tddzwj Lvl>22.3Normal>=6.7FTriHealth Bethesda Butler HospitalComment on above:Performed By: #### [id number] #### [facility] [address], [place] [address]Ytkl Scr Glu 1 Hron 85-80-0838Krkumvy [Mass/Vol]155 mg/dLHigh 55-140[facility] Medical CenterComment on above:Performed By: #### [id number] #### [facility] [address] [place] [address]Tmchonc 1h post 50g loadon 50-94-4681Dmfkwcf, 1 hr PP 50GM dose 155ProMedica Health SystemIronon 13-62-6555Qycl30 microgram/jXXbmugi14-432CxtjmrMain Campus Medical CenterComment on above:Performed By: #### [id number] #### [facility] [address] [place], [place] [address]Xh Panel Informationon 75-00-5290NMPT HealthcareTIBC Calculated on 37-62-1681LBDD418 microgram/kUUobr779-530EyakcsMain Campus Medical CenterComment on above:Performed By: #### [id number] #### [facility] [address] [place], [place] [address]Rlypxkihrxl [Mass/Vol]455 mg/dSSuhm833-894GgegjgMain Campus Medical CenterComment on above:Performed By: #### [id number] #### [facility] [address] [place], [place] [address]QJ OB LIMITED 1+ FETUSESon 91-97-2049DL OB LIMITED 1+ FETUSES FINDINGS: Single viable [...] Delivery: 11/28/25 Gestational Age as of 07/21/2025: 86x0cQqybzljazp macro (dipstick) panel (U)on 97-75-1069Ikxqopwno, UANegativeNegative - 4(70) +++ mg/dLNOMS HealthcareBlood, UANegativeNegative [...] HealthcareUrobilinogen, UA1.00.2 - 12 mg/dLNOMS HealthcareVit B12on 82-72-4982Qystqswna (Vitamin B12) [Mass/Vol]205 pg/qSIpfqbl03-6842Edgjwj [facility] Hospital Of BaltimoreComment on above:Performed By: #### [id number] #### [facility] [address], [place] [address]DZV w/ Auto Diffon 61-40-7806Xzbehewt Absolute0.0 E9/LNormal 0.0-0.2[facility] BaltimoreComment on above:Performed By: #### [id number] #### [facility] [address], [place] [address]Giivpvlpb/100 WBC (Bld)0.2 %Normal0.0-2.0[facility] Medical CenterComment on above:Performed By: #### [id number] #### [facility] [address] [place] [address]Blv Absolute0.1 E9/LNormal0.0-0.5FTriHealth [facility] Hospital Comment on above:Performed By: #### [id number] #### [facility] [address] [place], [place] [address]Evhkilbwkif/100 WBC (Bld)0.5 %Normal0.0-8.0[facility] Medical CenterComment on above:Performed By: #### [id number] #### [facility] [address] [place] [address]Asipltzajih distribution width (RBC) [Ratio]13.0 %Normal 10.9-14.2FTriHealth Bethesda Butler HospitalComment on above:Performed By: #### [id number] #### [facility] [address] [place] [address]Anrpraazes (Bld) [Volume fraction]31.9 %Low34.0-46.0[facility] Medical CenterComment on above:Performed By: #### 7327179 #### [facility] [address] [place] [address]Gamgizkvpl (Bld) [Mass/Vol]11.1 g/dLLow12.0-16.0[facility] CenterComment on above:Performed By: #### [id number] #### [facility] [address] [place] [address]Amfqc Absolute2.1 E9/LNormal1.0-4.0[facility] Comment on above:Performed By: #### [id number] #### [facility] [address] [place], [place] [address]Wyqvaupblcd/100 WBC (Bld)16.2 %Vplemu27.0-50.0[facility] CenterComment on above:Performed By: #### [id number] #### [facility] [address] [place], [place] [address]UTJ (RBC) [Entitic mass]29.9 emBwopdq54.0-34.0[facility] CenterComment on above:Performed By: #### [id number] #### [facility] [address] [place] [address]GMZN (RBC) [Mass/Vol]34.8 g/kDRsrqak20.4-36.0[facility] CenterComment on above:Performed By: #### [id number] #### [facility] [address] [place] [address]HRT (RBC) [Entitic vol]85.7 xXHfkmpt28.0-100.0[facility] Medical CenterComment on above:Performed By: #### [id number] #### [facility] [address] [place] [address]Autr Absolute0.9 E9/LNormal0.2-1.0[facility] Comment on above:Performed By: #### [id number] #### [facility] [address] [place] [address]Zqejyeaue/100 WBC (Bld)7.0 %Normal4.0-14.0[facility] Medical CenterComment on above:Performed By: #### [id number] #### [facility] [address] [place] [address]Vykjwp Absolute9.7 E9/LHigh2.0-7.5[facility] Comment on above:Performed By: #### [id number] #### [facility] [address] [place] [address]Kfxebm Auto76.1 %High36.0-75.0[facility] Comment on above:Performed By: #### [id number] #### [facility] [address] [place] [address]Ymzerhej610.0 E9/JGqnxia751.0-500.0[facility] Comment on above:Performed By: #### [id number] #### [facility] [address], [place] [address]Bgwdvuvq mean volume (Bld) [Entitic vol]8.0 fLNormal6.4-10.8 [facility] Medical CenterComment on above:Performed By: #### [id number] #### [facility] [address], [place] [address]XWV6.7 E12/LLow4.3-5.9[facility] Medical CenterComment on above:Performed By: #### [id number] #### [facility] [address] [place], [place] [address]ZTN38.8 E9/LHigh4.0-11.0[facility] CenterComment on above:Performed By: #### [id number] #### [facility] [address] [place], [place] [address]TTYnd 74-84-2919PB8 [Moles/Vol]20 mmol/UTih10-62SqphajMain Campus Medical CenterComment on above:Performed By: #### [id number] #### [facility] [address] [place], [place] [address]Rhkhw gap [Moles/Vol]16 mmol/LNormal6-16[facility] Medical CenterComment on above:Performed By: #### [id number] #### [facility] [address] [place], [place] [address]Ignjeta [Mass/Vol]3.8 g/dLNormal3.3-5.0[facility] Medical CenterComment on above:Performed By: #### [id number] #### [facility] [address], [place] [address]Ckzudie/Globulin [Mass ratio]1.3 {ratio}Normal1.1-2.2FTriHealth Bethesda Butler HospitalComment on above:Performed By: #### [id number] #### [facility] [address], [place] [address]Ydj Phos78 Int._Unit/CKraeal69-84HtzgoeMain Campus Medical Center Comment on above:Performed By: #### [id number] #### [facility] [address], [place] [address]OWB75 Int._Unit/LNormal6-46[facility] CenterComment on above:Performed By: #### [id number] #### [facility] [address], [place] [address]BDY87 Int._Unit/LNormal5-43[facility] Medical CenterComment on above:Performed By: #### [id number] #### [facility] [address], [place] [address]Aenw Total0.8 mg/dLNormal0.0-1.1FTriHealth Bethesda Butler Hospital Comment on above:Performed By: #### [id number] #### [facility] [address], [place] [address]WKD/Creat Ratio18 No ShqwdDmfpxz64-87XdlicoMain Campus Medical CenterComment on above:Performed By: #### [id number] #### [facility] [address], [place] [address]Jsioyxn [Mass/Vol]8.9 mg/dLNormal8.9-11.1FTriHealth Bethesda Butler HospitalComment on above:Performed By: #### [id number] #### [facility] [address], [place] [address]Ttpfevbc [Moles/Vol]104 mmol/QAoxdku111-566SlxyfgMain Campus Medical CenterComment on above:Performed By: #### [id number] #### [facility] [address], [place] [address]Scsfynobtr [Mass/Vol]0.6 mg/dLNormal0.5-1.3FTriHealth Bethesda Butler HospitalComment on above:Performed By: #### [id number] #### [facility] [address], [place] [address]Hchnhfyq (S) [Mass/Vol]3.0 g/dLNormal1.4-4.0Main Campus Medical CenterComment on above:Performed By: #### [id number] #### [facility] [address], [place] [address]Mamzfho [Mass/Vol]92 mg/fICeygzr56-860WqvuaoMain Campus Medical CenterComment on above:Performed By: #### [id number] #### [facility] [address], [place] [address]Mkygkbawz [Moles/Vol]3.7 mmol/LNormal3.5-5.3FTriHealth Bethesda Butler HospitalComment on above:Performed By: #### [id number] #### [facility] [address], [place] [address]Xjckqzc [Mass/Vol]6.8 g/dLNormal6.0-7.8Main Campus Medical CenterComment on above:Performed By: #### [id number] #### [facility] [address], [place] [address]Dinyww [Moles/Vol]136 mmol/UGynrul714-284SueibvMain Campus Medical CenterComment on above:Performed By: #### [id number] #### [facility] [address], [place] [address]Snbq nitrogen [Mass/Vol]11 mg/dLNormal5-21Main Campus Medical CenterComment on above:Performed By: #### [id number] #### [facility] [address], [place] [address]Zxfjn Panelon 07-34-8083Snkjchwiocw [Mass/Vol]239 mg/dLHigh 120-200Main Campus Medical CenterComment on above:Performed By: #### [id number] #### [facility] [address], [place] [address]Hgtqhndsuyy in HDL [Mass/Vol]88 mg/dLInvalid Interpretation CodeMain Campus Medical CenterComment on above:Result Comment: '>= 60 LOW RISK' '<= 40 HIGH RISK'Performed By: #### [id number] #### [facility] [address], [place] [address]Toeybjbpkdr in LDL [Mass/Vol]144 mg/dLHigh<=129Main Campus Medical CenterComment on above:Performed By: #### [id number] #### [facility] [address] [place], [place] [address]Xablhzkfzke in VLDL [Mass/Vol]40 mg/dLNormal7-40Main Campus Medical CenterComment on above:Performed By: #### [id number] #### [facility] [address], [place] [address]Teesckhuxava [Mass/Vol]202 mg/dLHigh<=149Main Campus Medical CenterComment on above:Performed By: #### [id number] #### [facility] [address] [facility] Clin[facility] [place], [place] [address]aIZFpk 46-56-7790uLZL878 mL/min/1.73 e5Athvtf>=59Main Campus Medical CenterComment on above:Performed By: #### [id number] #### [facility] [address], [place] [address]WZF, SERUM, OPEN SPINA BIFIDAon 34-35-5526RXB MOM0.95.[facility] HealthcareAFP VALUE59.2 ng/mL.[facility] HealthcareCOMMENT:Comment.[facility] Healthcare Comment on above:Amy Ramos, Ph.D., [facility] Director References: Available Upon Request. Multiples Of Median Cutoffs For AFP Elevations Hsieh 2.5 Black 2.8 IDD 2.0 Twins 4.5 Abbreviation Definitions IDD - Insulin Dep Diabetes OSBR - Open Spina Bifida Risk For further inquiries contact [employer] at [phone]. This test was developed and its performance characteristics determined by [employer]. It has not been cleared or approved by the Food and Drug Administration. Performed at: [facility] [address] [place], [place] [id number] Credit Coordinator: Dona Justin [facility], Phone: [phone] GEST. AGE ON COLLECTION DATE20.6. weeksNOMS HealthcareGESTAT. AGE BASED ONLMP. NOMS HealthcareComment on above:Recalculations are not recommended when gestational dating by LMP and ultrasound are within 10 days. INSULIN DEP DIABETESNo.[facility] HospitalINTERPRETATIONComment.[facility] Comment on above:Interpretation: Screen [...] Customer Services to discuss available options. The [employer] recommends amniocentesis be offered to women age 35 and older. MATERNAL AGE AT EDD30.7. yrNOLA HealthcareMULTIPLE GESTATIONNo.[facility] OSBR RISK 1 [id number].[facility] HospitalRACECaucasian.[facility] HospitalRESULTSReport. [facility] HospitalTEST RESULTS:Negative.[facility] HospitalMyyxstflwkBAEFXP504. lbMadigan Army Medical Center HealthcarePREGNANCY N N LMP [id number] 2 17 N 1 Y 146 N N N N N White/ CLINISYNCNOLA HealthcareUS OB 14+ WEEKS ANATOMY SCANon 15-53-3297UZ OB 14+ WEEKS ANATOMY SCANEXAM: US OB [...] II, MD, PHD at 16-Jul-2025 08:07:07 AM [facility] TeleradiologyNormalNot AvailableComment on above:Order Comment: US OB ANATOMY SINGLE W US OB CERVICAL LENGTH Estimated Date of Delivery: 11/28/25 Gestational Age as of 06/22/2025: 87r9wNutamdlsiv macro (dipstick) panel (U)on 67-49-4711Qmynmkpes, UANegativeNegative - 4(70) +++ mg/dLNOMS HealthcareBlood, UANegativeNegative [...] 12 mg/dLNOMS HealthcareNOMS Healthcare RECURRENT VAGINITIS (HTRX)on 95-86-9519NEGLENAPG LTZIHED4EUAF Healthcare ATOPOBIUM VAGINAENot detectedNOMS HealthcareBVAB 2,3 (BACTERIAL VAGINOSIS ASSOCIATED BACTERIA 2, 3); MOBILUNCUS JPZ8NOYS HealthcareBVAB 2,3 (BACTERIAL VAGINOSIS ASSOCIATED BACTERIA 2, 3); MOBILUNCUS SPPNot detectedNOMS Healthcare RADHA ALBICANS, PARAPSILOSIS, LEOFDGVZPJ6ZQJE HealthcareCANDIDA ALBICANS, PARAPSILOSIS, TROPICALISNot detectedNOMS HealthcareCANDIDA NLXLPYOL6MCTX HealthcareCANDIDA GLABRATANot detectedNOMS HealthcareCANDIDA EQFTDD1RZQZ HealthcareCANDIDA KRUSEINot detectedNOMS HealthcareCHLAMYDIA JWFKBOHDVJJ8UNMQ HealthcareCHLAMYDIA TRACHOMATISNot detectedNOMS HealthcareGARDNERELLA VAGINALIS 17.967AbnormalNOMS HealthcareGARDNERELLA VAGINALISDetectedAbnormalNOLA HealthcareInterpretation and review of laboratory resultsAbnormalNOLA Healthcare MEGASPHAERA (TYPES 1, 2)0NOMS HealthcareMEGASPHAERA (TYPES 1, 2)Not detectedNOMS HealthcareMYCOPLASMA KSILZLADYN7WCEG HealthcareMYCOPLASMA GENITALIUMNot detectedNOMS HealthcareNEISSERIA GXZCRPBLRTT0ROEW HealthcareNEISSERIA GONORRHOEAENot detectedNOMS HealthcareTRICHOMONAS ZSJFMFUMS9KZEQ Healthcare TRICHOMONAS VAGINALISNot detectedNOMS HealthcareNOMS HealthcareUrinalysis macro (dipstick) panel (U)on 56-06-1371Xgdgzxesk, UANegativeNegative - 4(70) +++ mg/dL NOMS HealthcareBlood, UANegativeNegative - 50 Teodoro/mcLNOMS HealthcareClarity, UA ClearNOMS HealthcareColor, UAYellowNOMS HealthcareGlucose, UANegativeNegative - 2000(110) ++++ mg/dLNOMS HealthcareInterpretation and review of laboratory resultsNormalNOLA HealthcareKetones, UANegativeNegative - 160(16) ++++ mg/dLNOMS HealthcareLeukocytes, UANegativeNegative - 500+++ Robinson/mcLNOMS Healthcare Nitrite, UANegativeNegative - PositiveNOMS HealthcarepH, UA65 - 9N[facility]S Healthcare Protein, UANegativeNegative - 1999(20) ++++ mg/dLNOMS HealthcareSpec Grav, UA 1.0051 - 1.03NOMS HealthcareUrobilinogen, UA1.00.2 - 12 mg/dLNOLA HealthcareNOLA HealthcareUrinalysis macro (dipstick) panel (U)on 81-68-9346Uzrtfafol, UA NegativeNegative - 4(70) +++ mg/dLNOLA HealthcareBlood, UANegativeNegative - 50 Teodoro/mcLNOLA HealthcareClarity, UAClearNOMS HealthcareColor, UAYellowNOLA HealthcareGlucose, UANegativeNegative - 2000(110) ++++ mg/dLBRIGHAM CITY [facility] Healthcare Interpretation and review of laboratory resultsNormalBRIGHAM CITY [facility] HealthcareKetones, UA NegativeNegative - 160(16) ++++ mg/dLBRIGHAM CITY COMMUNITY HOSPITAL HealthcareLeukocytes, UAPositive Negative - 500+++ Robinson/mcLBRIGHAM CITY COMMUNITY HOSPITAL HealthcareComment on above:smallNitrite, UA NegativeNegative - PositiveNOLA HealthcarepH, UA6.55 - 9NOMS HealthcareProtein, UANegativeNegative - 1999(20) ++++ mg/dLNOLA HealthcareSpec Grav, UA1.011 - 1.03 NOMS HealthcareUrobilinogen, UA0.20.2 - 12 mg/dLCass Medical Center Healthcare BOX TESTon 71-48-1764LIS TEST SENT OUTunDr. Fred Stone, Sr. HospitalSdwkzwblgkMMJ4dyycqMLTY VipuhushtmHOU80/08/20NOEllett Memorial HospitalUNITY BOX CLINISYNCCBC without diffon 25-38-3187Pfzuxqmxej (Bld) [Volume fraction]39.8 % [facility] SystemHemoglobin (Bld) [Mass/Vol]13.2 g/dLCleveland Clinic Fairview HospitalPlatelets (Bld) [#/Vol]390 10*3/uLCleveland Clinic Fairview HospitalRbc Mcv (Fl) By Automated Count84.7[facility] HospitalDrug Screen, Urineon 05-04-2025 Amphetamine/MethamphetamineNegativeShelby Memorial Hospital SystemBarbituratesNegative [facility] SystemBenzodiazepinesNegativeShel[facility] Memorial Hospital SystemCocaine MetaboliteNegativeShelby Memorial Hospital SystemMethadoneNegativeS[facility] Memorial Hospital SystemOpiatesNegativeProMedica Health SystemOxycodoneNegativeProMedica Health SystemPhencyclidineNegativeProMedica Health SystemThc Marijuana, UrineNegative [facility] SystemHBV surface Ag IA Qlon 28-27-9397Ofzgdembq B Surface AntigenNegativeProMedica Health SystemHCV Ab IA Qlon 76-38-7099HZY Ab Ql (S) Non-ReactiveProMedict Health SystemHIV 1+2 Ab+HIV1 p24 Ag IA Qlon 43-96-9817EFJ 1&2 AB/AGNon-ReactiveShelby Memorial Hospital SystemHemoglobin A1con 18-19-0032OlI7b (Bld) [Mass fraction]5.3 %4.0 - 6.0 %[facility] SystemNo Panel Information on 86-04-0646WLOA HealthcareRubella IGG immune statusOrdered By: Angeline Velasquez on 60-95-9256Tddztoa immune IgGProEncompass Health Rehabilitation Hospital Of Montgomery Health SystemType and screenon 37-49-0538Win/Rh(D)PositiveProUpper Valley Medical CenterHCG ( test) Ql (U)on 02-54-6575Jeijbyacwzyxrt and review of laboratory resultsAbnormalNOLA Healthcare Preg Test, UrPositiveNegativeNOEllett Memorial HospitalNOLA HealthcareUS OB TRANSVAGINALon 01-85-1132AvtH[place] [address] Ultrasound Report Signed Patient: JUHI COPE MR#: [id number] : 1995 Acct:[id number] Age/Sex: 30 / F ADM Date: 05/01/25 Loc: US Attending Dr: Nathan Pop D.O. Ordering Physician: Nathan Pop D.O. Date of Service: 05/01/25 Procedure(s): US OB transvaginal Accession Number(s): [id number] cc: Nathan Pop D.O.; Physician,Non-Staff Katherine The [address] [address] Patient Name: JUHI COPE MRN: [id number] date: 1995 Sex: F Assigned Patient Location: US Current Patient Location: US Accession/Order Number: [id number] Exam Date: 05/01/2025 08:57 Report Date: 05/01/2025 [...] Faria M.D. 05/01/2025 9:01 AM Dictation Location: [place] [address] Electronically authenticated by: [id number] Y Date: 05/01/2025 09:01 Dictated By: Will Faria M.D. Signed By: 05/01/2504 DD/ 0 TD/TT: [employer] Cream Warmer:TBHRadiology, Radiologist, MD - 05/01/2025 [place] [address] Ultrasound Report Signed Patient: JUHI COPE MR#: [id number] : 1995 Acct:[id number] Age/Sex: 30 / F ADM Date: 05/01/25 Loc: US Attending Dr: Nathan Pop D.O. Ordering Physician: Nathan Pop D.O. Date of Service: 05/01/25 Procedure(s): US OB transvaginal Accession Number(s): [id number] cc: Nathan Pop D.O.; Physician,Non-Staff Katherine [address] [address] Patient Name: JUHI COPE MRN: [id number] date: 1995 Sex: F Assigned Patient Location: US Current Patient Location: US Accession/Order Number: [id number] Exam Date: 05/01/2025 08:57 Report Date: 05/01/2025 [...] Faria M.D. 05/01/2025 9:01 AM Dictation Location: [place] [address] Electronically authenticated by: [id number] Y Date: 05/01/2025 09:01 Dictated By: Will Faria M.D. Signed By: 05/01/25903 DD/ 0 TD/TT: [employer] Warmer: LANETTE HealthcareRadiology Study observation (narrative)LANETTE SmallUS OB TRANSVAGINALOrdered By: Radiologist Radiology on 22-81-9289WIXP Healthcare Work Phone: Urinalysis macro (dipstick) panel (U)on 05-01-2025 Bilirubin, UANegativeNegative - 4(70) +++ mg/dLNOMS HealthcareBlood, UANegative Negative - 50 Teodoro/mcLNOMS HealthcareClarity, UAClearNOMS HealthcareColor, UA YellowNOMS HealthcareGlucose, UANegativeNegative - 2000(110) ++++ mg/dLNOMS HealthcareInterpretation and review of laboratory resultsNormalNOLA Healthcare Ketones, UANegativeNegative - 160(16) ++++ mg/dLNOMS HealthcareLeukocytes, UA NegativeNegative - 500+++ Robinson/mcLNOMS HealthcareNitrite, UANegativeNegative - PositiveNOMS HealthcarepH, UA5.55 - 9NOMS HealthcareProtein, UANegativeNegative - 2000(20) ++++ mg/dLNOMS HealthcareSpec Grav, UA1.021 - 1.03NOMS Healthcare Urobilinogen, UA1.00.2 - 12 mg/dLNOMS HealthcareNOMS HealthcareCHEMISTRYOrdered By: SYSTEM SYSTEM on 93-51-8421Ieklvcbzjwjt Lvl31.35 ng/mLInvalid Interpretation CodeRemisol ChemComment on above:Result Comment: 'F NON FOLLICULAR = 0.10 - 0.60' 'LUTEAL = 3.00 - 17.5' 'MIDLUTEAL = 3.30 - 18.6' 'POST-MENOPAUSE = 0.10 - 0.40' '-FIRST TRIMESTER = 8.30 - 66.5' 'SECOND TRIMESTER = 18.9 - 66.1' 'THIRD TRIMESTER = 35.8 - 312.4' 'MALES = 0.14 - 2.06'Progesteroneon 19-64-0668Ucphzedwoauq Lvl31.35 ng/mLInvalid Interpretation CodeMain Campus Medical CenterComment on above:Result Comment: 'F NON FOLLICULAR = 0.10 - 0.60' 'LUTEAL = 3.00 - 17.5' 'MIDLUTEAL = 3.30 - 18.6' 'POST-MENOPAUSE = 0.10 - 0.40' '-FIRST TRIMESTER = 8.30 - 66.5' 'SECOND TRIMESTER = 18.9 - 66.1' 'THIRD TRIMESTER = 35.8 - 312.4' 'MALES = 0.14 - 2.06'Performed By: #### [id number] #### [facility] [address] [place], [place] [address]Lvbvkydvsnxiyu 85-73-8048Fxdlozuxltio7.2 ng/mLNormal.The [facility] Physician GroupComment on above:Result Comment: Follicular phase 0.1 - 0.9 Luteal phase 1.8 - 23.9 Ovulation phase 0.1 - 12.0 First trimester 11.0 - 44.3 Second trimester 25.4 - 83.3 Third trimester 58.7 - 214.0 Postmenopausal 0.0 - 0.1 Performed at: - [facility] [id number] Credit Coordinator: Cm Sandoval PhD, Phone: [phone] PERFORMED BY: [address] [place] [address] PATHOLOGIST OUT OF TOWN COLLECTION CLERK ARNULFO THOMAS M.D.Performed By: #### PROG #### [facility] , Transvaginal Non-OBon 12-25-0620TJ Transvaginal Non-OBExam Date/Time: 01/22/2025 16:22 EST Reason for Exam: N94.6 Report PLEASE SEE US Pelvis Non-OB Complete REPORT DATED: 01/22/2025. Ordering Provider: Nathan POP FINAL REPORT Dictated: 01/27/2025 10:11 am Siddharth Foy MD Signed (Electronic Signature): 01/27/2025 10:11 am Signed by: Siddharth Foy MD Transcribed by: ELOISA Technologist: Filiberto [facility] Pelvis Non-OB Completeon 11-06-7739GF Pelvis Non-OB CompleteExam Date/Time: 01/22/2025 16:24 EST [...] Kate Gonzalez MD Transcribed by: ELOISA Technologist: TalyaMain Campus Medical CenterMILADY,APTIMA HPV,AGE GDLNon 07-62-1845HAB GDLN ACOG TESTINGNote.NOMS HealthcareComment on above:TESTS RESULT FLAG UNITS REF RANGE LAB Clinician Provided Cytology Information Source.............Cervix;Endocervix No. of containers..01 ThinPrep Vial Age Algo ACOG Sarah... -24 12 FLAG LEGEND: L-Low Normal,H-High Normal,LL-Alert Low,HH-Alert High <-Panic Low,>-Panic High,A-Abnormal,AA-Critical Abnormal Performed at: 01 =G [facility] [place] [address] Loren Oneal MD, IGP, RFX APTIMA HPV ASCUNote.[facility] HealthcareComment on above:TESTS RESULT FLAG UNITS REF RANGE LAB DIAGNOSIS: 02 NEGATIVE FOR INTRAEPITHELIAL LESION OR MALIGNANCY. Specimen adequacy: 02 Satisfactory for evaluation. Endocervical and/or squamous metaplastic cells (endocervical component) are present. Performed by: Sophia Calzada, Nurse First Assist ([facility]) . 02 Note: Note 02 [...] <-Panic Low,>-Panic High,A-Abnormal,AA-Critical Abnormal Performed at: [address] [address] Loren Oneal MD, Performed at: =G - [facility] [id number] Credit Coordinator: Loren Oneal MD, Phone: [phone] Performed at: [facility] [id number] Credit Coordinator: Loren Oneal MD, Phone: [phone] BRUSH-SPATULA CERVIX ENDOCERVIX [facility] 62-95-0695RBHAQubonvgal (WHQ) JUHI COPE ([id number]) 1995 F Date Time Provider Department 04/29/24 [...] [I10] Encounter Status:Closed by CANDIS GARCES on 04/29/24[facility] 42-40-5260LXVGNopotmeml (WHQ) JUHI COPE ([id number]) 1995 F Date Time Provider Department 04/25/24 CHARLENE RODRIGUEZ During your visit today, we recorded the following information about you: Anna De Leon 04/25/2024 1:10 PM Signed Pt got in sooner for surgery with her local underwriting account representative. Please cancel surgery and all pre and [...] Encounter Status:Closed by SUSI DE LEONLEY on 04/25/24[facility] 12-LEADon 36-27-2203[address] [address] Electrocardiograph Report Signed Patient: JUHI COPE MR#: [id number] : 1995 Acct:[id number] Age/Sex: 28 / F ADM Date: 02/13/24 Loc: PST Attending Dr: Nathan Pop D.O. Ordering Physician: Nathan Ppo D.O. Date of Service: 02/13/24 Procedure(s): ECG 12 lead Accession Number(s): [id number] cc: 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 Signed By: 02/14/24 0650 DD/ 1455 TD/TT: [employer] Cream Warmer:TBHRadiology, Radiologist, MD - 02/14/[address] [address] Electrocardiograph Report Signed Patient: JUHI COPE MR#: [id number] : 1995 Acct:[id number] Age/Sex: 28 / F ADM Date: 02/13/24 Loc: PST Attending Dr: Nathan Pop D.O. Ordering Physician: Nathan Pop D.O. Date of Service: 02/13/24 Procedure(s): ECG 12 lead Accession Number(s): [id number] cc: 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 Signed By: 02/14/24 0650 DD/ 1455 TD/TT: [employer] Cream Warmer: LANETTE HealthcareECG 12-LEADOrdered By: Radiologist Radiology on 88-81-8049GMTA Healthcare Work Phone: ECG 12-LEADon 24-60-8278Jkgclaboq Study observation (narrative)LANETTE HealthcareUS PELVIS W/ TRANSVAGINALon 69-66-3785[place]br[place] [address] Ultrasound Report Signed Patient: JUHI COPE MR#: [id number] : 1995 Acct:[id number] Age/Sex: 28 / F ADM Date: 01/15/24 Loc: [facility] Attending Dr: Nathan Pop D.O. Ordering Physician: Nathan Pop D.O. Date of Service: 01/15/24 Procedure(s): US pelvis w/ transvaginal Accession Number(s): [id number] cc: Nathan Pop D.O.; Physician,Non-Staff Katherine The [address] [address] Patient Name: JUHI COPE MRN: [id number] date: 1995 Sex: F Assigned Patient Location: [facility] Current Patient Location: [facility] Accession/Order Number: [id number] Exam Date: 01/15/2024 07:57 Report Date: 01/15/2024 [...] account for patient's symptoms. Electronically authenticated by: JEO WATERMAN Date: 01/15/2024 11:42 Dictated By: Joe Waterman M.D. Signed By: 01/15/24 1144 DD/ 1142 TD/TT: Bonbon Cream Warmer:TBHRadiology, Radiologist, - 01/15/2024 [place] [address] Ultrasound Report Signed Patient: JUHI COPE MR#: [id number] : 1995 Acct:[id number] Age/Sex: 28 / F ADM Date: 01/15/24 Loc: [facility] Attending Dr: Nathan Pop D.O. Ordering Physician: Nathan Pop D.O. Date of Service: 01/15/24 Procedure(s): US pelvis w/ transvaginal Accession Number(s): [id number] cc: Nathan Pop D.O.; Physician,Non-Staff M.DKaren The [place] [id number] Patient Name: JUHI COPE MRN: [id number] date: 1995 Sex: F Assigned Patient Location: [facility] Current Patient Location: [facility] Accession/Order Number: [id number] Exam Date: 01/15/2024 07:57 Report Date: 01/15/2024 [...] Signed By: 01/15/24 1144 DD/ 1142 TD/TT: Bonbon Cream Warmer: LANETTE HealthcareRadiology Study observation (narrative)[facility] HealthcareUS PELVIS W/ TRANSVAGINALOrdered By: Radiologist Radiology on 37-31-1649[employer] Work Phone: cNPTanya 21-44-2410CGIGUuewkchbo (Q) JUHI COPE ([id number]) 1995 F Date Time Provider Department 12/12/23 [...] [I10] Encounter Status:Closed by CANDIS GARCES on 12/12/23[facility] [id number] Visit (GYMGME) JUHI COPE ([id number]) 1995 F Date Time Provider Department 12/10/23 10:30 AM CHARLENE RODRIGUEZ During your visit today, we recorded the following information about you: Pulse Blood pressure Weight 98/minute 124/84 68.9 kg Charlene Rodriguez DO 12/10/2023 3:14 PM Signed [facility] SECTION FOR MINIMALLY INVASIVE GYNECOLOGIC SURGERY OUTPATIENT VISIT DATE 12/10/2023 OUTPATIENT VISIT TYPE Follow-up visit PRIMARY CARE PHYSICIAN: Denny Rodríguez [address] [place] [address] REFERRING PHYSICIAN: Self CHIEF COMPLAINT: No chief [...] MRI: no evidence of 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 Juhi Cope (Morales: [id number]) - [id number] Orilissa 150MG tablets Status: Sent To Plan [...] [I10] Encounter Status:Closed by JENIFER LYNN on 08/02/23[facility] 41-67-6167OEYDQyyvko Visit (GYMGME) JUHI COPE ([id number]) 1995 F Date Time Provider Department 07/16/23 11:30 AM CHARLENE RODRIGUEZ During your visit today, we recorded the following information about you: Blood pressure Last Period 136/90 07/08/23 Charlene Rodriguez DO 07/16/2023 12:41 PM Signed [facility] SECTION FOR MINIMALLY INVASIVE GYNECOLOGIC SURGERY OUTPATIENT VISIT DATE 07/16/2023 OUTPATIENT VISIT TYPE Follow-up visit PRIMARY CARE PHYSICIAN: Denny Rodríguez [address] [place] [address] REFERRING PHYSICIAN: Denny Rodríguez CHIEF COMPLAINT: No [...] additional bowel lesions identified 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 IMPRESSION: No deep infiltrating endometriosis. Bonbon Cream Warmer: DAVID Transcribe Date/Time: Jun 12 2023 2:54P Dictated by : ASHLEY DUKE MD This examination was interpreted and the report reviewed and electronically signed by: SONIDO FLAHERTY MD on Jun 12 2023 4:51PM EST [id number] Fayette Medical CenterCNPNon 10-56-7149LRYPTjqhnpsup (GYNMN) JUHI COPE ([id number]) 1995 F Date Time Provider Department 05/11/23 CHARLENE RODRIGUEZ GYNMN During your visit today, we recorded the following information about you: Tawana Nair [facility] [...] Takes aygestin 5mg daily. She did not picket labor union flexeril. Encourage to picket labor union the flexeril as this will help with the cramping. Reviewed red flag bleeding symptoms that require trip to ER (soaking greater than one overnight pad per hour, chest pain, shortness of breath, fatigue, palpitations).. Advised keep appt. Gives verbal understanding. Appointments for Next 60 Days Date Time Provider Location Dept Phone 05/17/2023 1:00 PM CHARLENE RODRIGUEZ [facility] [phone] Candis Suárez RN Allergies As of Date: 05/11/2023 (No Known Allergies) Date Reviewed: 05/09/2023 Reviewed by: Jihan Downs APRN.PAINTER RAILROAD CAR - Fully Assessed Reason for Visit: Vaginal [...] [I10] Encounter Status:Closed by CANDIS WILLINGHAM on 05/11/23[facility] HospitalGracie 11-10-3332CRGWOrmryl Visit ([facility]) NITO COPEIS ([id number]) 1995 F Date Time Provider Department 05/01/23 10:30 AM JIHAN DOWNS [facility] During your visit today, we recorded the following information about you: Blood pressure Weight Height Last Period 148/64 64.9 kg 1.575 m 04/22/23 Jihan Downs APRN.PAINTER [employer]ILRO[employer] 05/09/2023 11:46 AM Signed Juhi Cope is a 28 year old female who presents for problem visit for pain HPI: Pain is week before period and week of period. Worse on her period for every day she's bleeding Urinary - No symptoms GI - Always constipated. 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 Comments: Sexual Activity: Never; No [...] physical therapy - or can go locally pelvicVLinks Mediaab.Peer[employer] Trial flexeril at bedtime Can consider Baclofen [...] physical therapy - or can go locally pelvicVLinks Mediaab.[employer] Trial flexeril at bedtime Can consider Baclofen suppositories - let me know if you want to trial after you go to PT Contin (more content not included)...NormalSamaritan HospitalCHEMISTRY Ordered By: SYSTEM SYSTEM on 77-07-1665Cnuhcut [Mass/Vol]4.3 g/dLNormal3.3 - 5.0 gm/dLFT RemisolAlbumin/Globulin [Mass [...] [Mass/Vol]8.8 mg/dLLow8.9 - 11.1 mg/dLFTMC RemisolChloride [Moles/Vol]100 mmol/MPpf229 - 111 mmol/LFTMC RemisolCO2 [Moles/Vol]24 mmol/L Lxsjdb97 - 31 mmol/LFTMC RemisolCreatinine [Mass/Vol]1.0 mg/dLNormal0.5 - 1.3 mg/dLFTMC RemisolGFR/1.73 sq M.predicted among blacks MDRD (S/P/Bld) [Vol rate/Area]mL/min/1.73 g3Yoigwj>=59mL/min/1.73 m2FTMC Chem SGFR/1.73 sq M.predicted among non-blacks MDRD (S/P/Bld) [Vol rate/Area]mL/min/1.73 w1Hvztnx >=59mL/min/1.73 m2FTMC Chem SGlobulin (S) [Mass/Vol]3.6 g/dLNormal1.4 - 4.0 gm/dLFTMC RemisolGlucose [Mass/Vol]104 mg/jKQjypbh27 - 199 mg/dLFTMC Remisol Potassium [Moles/Vol]3.6 mmol/LNormal3.5 - 5.3 mmol/LFTMC RemisolProtein [Mass/Vol]7.9 g/dLHigh6.0 - 7.8 gm/dLFTMC RemisolSodium [Moles/Vol]134 mmol/LLow 135 - 145 mmol/LFTMC RemisolUrea nitrogen [Mass/Vol]10 mg/dLNormal5 - 21 mg/dL FT[facility] RemisolUrea nitrogen/Creatinine [Mass ratio]10 mg/udKjwdgt78 - 20FTMC RemisolHEMATOLOGYOrdered By: Amairani Jenkins on 62-88-5210Nwvdhmoetopn Ql (Bld) Present (01/31/23 2:10 PM)NormalFTMC HemeManSSErythrocyte [...] fLNormal6.4 - 10.8 fLFTMC HemeAutoSSPlatelets (Bld) [#/Vol]471.0 E9/EGnhxhj825.0 - 500.0 E9/LFTMC HemeAutoSSRBC (Bld) [#/Vol]4.3 E12/LNormal4.3 [...] - 0.5 E9/L FTMC HemeAutoSSLymphocytes/100 WBC (Bld)31.7 %Mswdac76.0 - 50.0 %[facility] HemeAutoSS Lymphocytes/Leukocytes Auto (Bld) [Pure # fraction]2.4 E9/LNormal1.0 - 4.0 E9/L [facility] HemeAutoSSMonocytes/100 WBC (Bld)9.1 %Normal4.0 - 14.0 %[facility] HemeAutoSS Monocytes/Leukocytes Auto (Bld) [Pure # fraction]0.7 E9/LNormal0.2 - 1.0 E9/L [facility] HemeAutoSSNeutrophils/100 WBC (Bld)57.4 %Chvrxi67.0 - 75.0 %[facility] HemeAutoSS Neutrophils/Leukocytes Auto (Bld) [Pure # fraction]4.3 E9/LNormal2.0 - 7.5 E9/L [facility] HemeAutoSSSEROLOGYOrdered By: Patricia Newton on 01-77-0531IPN.beta subunit (U) [Moles/Vol]NegativeNormalFT Man SeroURINALYSISOrdered By: Solomon Leal on 77-70-8073Wfpnzjwbg Ql (U)Negative (01/31/23 1:57 PM)NormalNegativeFTMC UA Auto SSClarity (U)Clear (01/31/23 1:57 PM)NormalClearFTMC UA Auto SSColor (U)Yellow (01/31/23 1:57 PM)NormalYellowFTMC UA Auto SSEpithelial cells.squamous LM.HPF (Urine sed) [#/Area]3-4 /HPFNormal0-2/HPFFTMC UA Auto SSGlucose Test strip (U) [Mass/Vol]Negative (01/31/23 1:57 PM)NormalNegativeFT UA Auto SSHemoglobin Ql (U)Negative (01/31/23 1:57 PM)NormalNegativeFTMC UA Auto SSKetones (U) [Mass/Vol]Negative (01/31/23 1:57 PM)NormalNegativeFT UA Auto SSLithium.plasma/[place].RBC (Bld) [Mass ratio]0-3 /HPFNormal0-3/HPFFTMC UA Auto SSNitrite Ql (U)Negative (01/31/23 1:57 PM)NormalNegativeCOR[facility]A Auto SSpH (U)6.0 *NA* (01/31/23 1:57 PM)Invalid Interpretation Code5.0 - 9.0[facility] UA Auto SSProtein (U) [Mass/Vol]Negative (01/31/23 1:57 PM)NormalNegativeCORDELL [facility] UA Auto SSSpecific gravity (U) [Rel density] 1.010 *NA* (01/31/23 1:57 PM)Invalid Interpretation Code1.005 - 1.030[facility] UA Auto SSUA Spec DescClean Catch (01/31/23 1:57 PM)NormalCORDELL [facility]IAL [facility] UA Auto SSUrobilinogen Qn (U)0.9294847 {Aspen'U}/dL Normal0.0 - 1.0 EU/dLCORDELL [facility]ORIAL [facility] UA Auto SSWBC Auto Ql (U)Negative (01/31/23 1:57 PM)NormalNegativeCORDELL [facility] UA Auto SSWBC LM.HPF (Urine sed) [#/Area]0-5 /HPFNormal0-5/HPFCORDELL MEMORIAL [facility]OSPITAL [facility] UA Auto SSBLOOD BANKOrdered By: Teena Quiroz on 29-18-8936CVT/Rh InterpPositiveInvalid Interpretation CodeCORDELL MEMORIAL [facility] BB SubsectionABSC Gel InterpNegative (12/30/22 11:28 AM)NormalCORDELL [facility] BB SubsectionCHEMISTRYOrdered By: SYSTEM SYSTEM on 91-07-7678Pkvjf gap [Moles/Vol]12 mmol/LNormal6 - 16 mEq/LFTMC RemisolCalcium [Mass/Vol]8.6 mg/dLLow8.9 - 11.1 mg/dLFTMC RemisolChloride [Moles/Vol]103 mmol/L Iqgins751 - 111 mmol/LFTMC RemisolCO2 [Moles/Vol]26 mmol/QOfwvmf96 - 31 mmol/L [facility] RemisolCreatinine [Mass/Vol]0.9 mg/dLNormal0.5 - 1.3 mg/dLFTMC Remisol GFR/1.73 sq M.predicted among blacks MDRD (S/P/Bld) [Vol rate/Area]mL/min/1.73 z2Xgmdpm>=59mL/min/1.73 m2FT Chem SGFR/1.73 sq M.predicted among non-blacks MDRD (S/P/Bld) [Vol rate/Area]mL/min/1.73 o0Lxuwlx>=59mL/min/1.73 m2FT Chem S Glucose [Mass/Vol]105 mg/tALmsfhz24 - 199 mg/dLFTMC RemisolPotassium [Moles/Vol] 3.8 mmol/LNormal3.5 - 5.3 mmol/LFTMC RemisolSodium [Moles/Vol]137 mmol/LNormal 135 - 145 mmol/LFTMC RemisolUrea nitrogen [Mass/Vol]17 mg/dLNormal5 - 21 mg/dL [facility] RemisolUrea nitrogen/Creatinine [Mass ratio]19 mg/nwMjicgy53 - 20FTMC RemisolCOAGULATIONOrdered By: Courtney Tang on 75-58-2709eWPB Coag (PPP) [Time]31.5 rWfmnic72.1 - 36.5 second(s)[facility] Auto CoagINR Coag (PPP) [Relative time]1.0 {INR}Invalid Interpretation CodeFTMC Auto CoagPT Coag (PPP) [Time]11.7 sNormal 9.4 - 12.5 second(s)[facility] Auto CoagHEMATOLOGYOrdered By: SYSTEM SYSTEM on 65-63-8798Zfvupaoov/100 WBC (Bld)1.2 %Normal0.0 - 2.0 %[facility] HemeAutoSS Basophils/Leukocytes Auto (Bld) [Pure # fraction]0.1 E9/LNormal0.0 - 0.2 E9/L [facility] HemeAutoSSEosinophils/100 WBC (Bld)4.1 %Normal0.0 - 8.0 %[facility] HemeAutoSS Eosinophils/Leukocytes Auto (Bld) [Pure # fraction]0.2 E9/LNormal0.0 - 0.5 E9/L [facility] HemeAutoSSLymphocytes/100 WBC (Bld)40.5 %Rguznd23.0 - 50.0 %[facility] HemeAutoSS Lymphocytes/Leukocytes Auto (Bld) [Pure # fraction]2.3 E9/LNormal1.0 - 4.0 E9/L [facility] HemeAutoSSMonocytes/100 WBC (Bld)7.6 %Normal4.0 - 14.0 %[facility] HemeAutoSS Monocytes/Leukocytes Auto (Bld) [Pure # fraction]0.4 E9/LNormal0.2 - 1.0 E9/L [facility] HemeAutoSSNeutrophils/100 WBC (Bld)46.6 %Ovchao73.0 - 75.0 %[facility] HemeAutoSS Neutrophils/Leukocytes Auto (Bld) [Pure # fraction]2.6 E9/LNormal2.0 - 7.5 E9/L [facility] HemeAutoSSHEMATOLOGYOrdered By: Courtney Case on 64-18-8981Lfboppwutjy distribution width (RBC) [Ratio]14.1 %Yrhggt40.9 - 14.2 %[facility] HemeAutoSS Hematocrit (Bld) [Volume fraction]31.5 %Low34.0 - 46.0 %[facility] HemeAutoSS Hemoglobin (Bld) [Mass/Vol]10.0 g/dLLow12.0 - 16.0 gm/dLFTMC HemeAutoSSMCH (RBC) [Entitic mass]25.3 pgLow27.0 - 34.0 pgFTMC HemeAutoSSMCHC (RBC) [Mass/Vol]31.8 g/yOHmrpxi24.4 - 36.0 gm/dLFTMC HemeAutoSSMCV (RBC) [Entitic vol]79.6 fLLow80.0 - 100.0 fLFTMC HemeAutoSSPlatelet mean volume (Bld) [Entitic vol]7.7 fLNormal6.4 - 10.8 fLFTMC HemeAutoSSPlatelets (Bld) [#/Vol]264.0 E9/QHovvrx683.0 - 500.0 E9/LFTMC HemeAutoSSRBC (Bld) [#/Vol]4.0 E12/LLow4.3 - 5.9 E12/LFTMC HemeAutoSS WBC corrected for nucl RBC Auto (Bld) [#/Vol]5.7 E9/LNormal4.0 - 11.0 E9/LFTMC HemeAutoSSURINALYSISOrdered By: Courtney Case on 23-25-8003Qesuakna LM Ql (Urine sed)Trace /HPFNormalTrace/HPFFTMC UA Auto SSBilirubin Ql (U)Negative (12/30/22 8:53 AM)NormalNegativeCORDELL [facility] UA Auto SSClarity (U)Clear (12/30/22 8:53 AM)NormalClearFINTEGRIS [facility] UA Auto SSColor (U)Yellow (12/30/22 8:53 AM)NormalYellowCORDELL MEMORIAL [facility]OSP[facility] UA Auto SSEpithelial cells.squamous LM.HPF (Urine sed) [#/Area]0-2 /HPFNormal0-2/HPFCORDELL [facility]ORIAL [facility] UA Auto SSGlucose Test strip (U) [Mass/Vol]Negative (12/30/22 8:53 AM)NormalNegativeCORDELL [facility] UA Auto SSHemoglobin Ql (U)2+ *ABN* (12/30/22 8:53 AM)Invalid Interpretation CodeNegativeCORDELL [facility] UA Auto SSKetones (U) [Mass/Vol]Negative (12/30/22 8:53 AM)NormalNegativeCORDELL [facility] UA Auto SSLithium.plasma/[place].RBC (Bld) [Mass ratio]4-20 /HPFNormal0-3/HPFCORDELL [facility]ORIAL [facility] UA Auto SSNitrite Ql (U)Negative (12/30/22 8:53 AM)NormalNegativeCORDELL [facility] UA Auto SSpH (U)6.0 *NA* (12/30/22 8:53 AM)Invalid Interpretation Code5.0 - 9.0[facility] UA Auto SSProtein (U) [Mass/Vol]Negative (12/30/22 8:53 AM)NormalNegativeCORDELL [facility] UA Auto SSSpecific gravity (U) [Rel density] 1.025 *NA* (12/30/22 8:53 AM)Invalid Interpretation Code1.005 - 1.030[facility] UA Auto SSUA Spec DescClean Catch (12/30/22 8:53 AM)NormalCORDELL MEMORIAL [facility] UA Auto SSUrobilinogen Qn (U)0.8848035 {[place]en'U}/dL Normal0.0 - 1.0 EU/dLCORDELL [facility]ORIAL [facility] UA Auto SSWBC Auto Ql (U)Negative (12/30/22 8:53 AM)NormalNegativeCORDELL [facility] UA Auto SSWBC LM.HPF (Urine sed) [#/Area]0-5 /HPFNormal0-5/HPFCORDELL MEMORIAL [facility] UA Auto SSOffice Visiton 99-21-2917Hnytvb-up [id number] Juhi Cope 1995 F Date Provider Department Center 12/05/2022 [id number], GINA [facility] WOM None Chart Close Cosign Required by: Opal Ross MD[VARUND] No family history on file Level of Service:57854 RI OFFICE/OUTPATIENT ESTABLISHED LOW MDM 20-29 MIN (GE,GC) Reason for Visit and Comments: Blood Pressure Check [299][facility] SHSProgress Noteon 39-73-7854Zdzsxqhb Note Attestation signed by Opal Ross MD at 12/05/2022 3:19 PM [facility]: This patient was seen in [...] about 4 weeks (around 01/02/2023) for Visit .[facility] SHSProgress NoteVital signs BP 127/87 Weight 149.2lb Pulse [address] [facility] SHSProgress Noteon 46-18-2467Mloaopry Note Late entry due to patient care. Resident Lacy notified of B.P 138/96 heart rate 119 around 1236 see flowsheet. Also notified checked in 1 hour via orders and B.P 143/87 pulse 111. Clarified if should check in 1 hour according to orders. . Also notified patient has discharge order in. Resident Lacy states No on rechecking. Ok to discharge. Will make patient aware.[facility] SHSProgress NotePOSTPARTUM VAGINAL DELIVERY POST DAY [...] Name: DO Vanessa Zambrano DO 12/02/2022, 5:09 [facility]42on 37-82-75651934.5mm flanges given to patient. Encouraged her to call for observation of pump session and smaller flanges. Martha in NICU to assist with personal pump.[facility] HospitalCARECOORDon 08-97-7499HCCMOJPZN32 year old admitted for induction of labor [...] to home. Denies any concerns at this time.[facility] SHSProgress Noteon 29-88-0469Cphnoqjb Note NOTE - VAGINAL DELIVERY POST DAY [...] with more than 50% of the total qajx-bo-iyss time of the visit in counseling/coordination of care. , 9:22 [facility] BNN55wf 44-99-404202Wprbj given to patient and educated how to use and to bring to [facility] JVD00Esdmbx pump use indicated for this pt. 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 Bowden; Dr. Kramer Information: Information for the patient's : Francie Cope [[id number]] Information for the patient's : Francie Cope [[id number]] Description: normal Meconium Noted: No Anesthesia: epidural [...] for: RUBELLAIGG Irina Kramer, DO 11/30/2022, 4:04 [facility] SHSProgress Noteon 03-06-6230Vjwjsqev NoteFoley catheter inserted by Andi Bacon RN, catheter drained and emptied for 900cc. Catheter secured to leg.[facility] SHSProgress NotePatient up to bathroom but remains unable to void. Bladder scan completed and reads >570. Sent secure message to Dr. Ruiz letting her know the above. Instructed to place chauhan catheter.[facility] HospitalProgress Note Secure message sent to Dr. Gamez stating patient is having difficulty voiding, patient's perineum is very swollen, and that patient was straight cathed for 950ml at noon. Received order for benadryl to help with swelling. [facility] HospitalProess NoteNutrition rescreen completed. Chart reviewed. Patient to be monitored and followed by the diet drinking water technician. Suad Samuels, DTBellevue Women's Hospital SHSProgress NotePatient unable to void, last straight cathed at 0400. Bladder scan obtained for >928 ml, fundus +2 and shifted to right. Patient straight cathed on attempt x2 by Andi Bacon RN for 950cc. Will continue to monitor.[facility] SHSCAREPLNon 57-05-9557TDSLYFYZmz patient will continue to make cervical change. Clotilde Mg, RNNoCHI St[facility] SHSLaboratory - Hematology and Cell countsOrdered By: Lucrecia Cervantes on 25-41-1517Oqvlkzxho (Bld) [#/Vol]386 10*3/uL140 - 440 10*3/uLSuour lady of mercy hospital HealthPlatelets (Bld) [#/Vol]Ordered By: Lucrecia Cervantes on 10-88-3310Rbhnalrjhppshv and review of laboratory resultsNormal [facility]. agalactiae DNA TENA+probe Ql (Unsp spec)on 11-29-2022 Group B Strep ScreenNot detectedNot [facility] HealthInterpretation and review of laboratory resultsNoBlanchard Valley Health SystemMethodology: real-time PCRSMercyOne Dyersville Medical CenterABO and Rh group Confirm Nom (Bld)on 21-69-2752LIH group Nom (Bld)OSumma HealthD Ag Ql (RBC)PositiveSumCleveland Clinic [facility] HealthBlood type and Crossmatch panel (Bld)on [id number] group Nom (Bld)OSumma HealthBlood group antibody screen GEL QlNegativeSumma HealthD Ag Ql (RBC)PositiveSumdc Healthmma HealthCBC panel Auto (Bld)Ordered By: Lauren Ayers on 63-08-5344Bajorlqcqcc distribution width (RBC) [Ratio]13.3 %11.5 - 14.5 %[facility]a HealthHematocrit (Bld) [Volume fraction]33.8 %Low35.0 - 47.0 %[facility] HealthHemoglobin (Bld) [Mass/Vol] 11.2 g/dLLow11.7 - 16.0 g/dLSumma HealthInterpretation and review of laboratory resultsAbnormalSLancaster Municipal HospitalH (RBC) [Entitic mass]28.0 pg26.0 - 34.0 pgSLancaster Municipal HospitalHC (RBC) [Mass/Vol]33.1 %32.0 - 36.0 %[facility] Hospitala HealthMCV (RBC) [Entitic vol]84.4 fL80.0 - 98.0 fLSumma HealthPlatelet mean volume (Bld) [Entitic vol]8.3 fL7.4 - 12.4 fLSumma HealthPlatelets (Bld) [#/Vol]319 10*3/uL140 - 440 10*3/uL [facility] HealthRBC (Bld) [#/Vol]4.00 10*6/uL3.8 - 5.20 10*6/uLSumma HealthWBC (Bld) [#/Vol]18.9 10*3/uLHigh3.6 - 10.7 10*3/uLSumma HealthParkview Health [facility] HealthComprehensive metabolic 1998 panelon 57-62-3878Allgrli [Mass/Vol]3.9 g/dL3.5 - 5.0 g/dLSumma HealthALP [Catalytic [...] sq M.predicted MDRD (S/P/Bld) [Vol rate/Area]- [facility] HospitalComment on above: Calculation based on the Chronic Kidney Disease Epidemiology Collaboration (CKD- EPI) equation refitwithout adjustment for raceGlucose [Mass/Vol]158 mg/zQGgjm33 - 100 mg/dLSumma HealthInterpretation and review of laboratory resultsAbnormal [facility]ma HealthPotassium [Moles/Vol]4.1 mmol/L3.5 - 5.1 mmol/LSumma HealthProtein [Mass/Vol]7.5 g/dL6.3 - 8.2 g/dLSumma HealthSodium [Moles/Vol]133 mmol/FEic448 - 145 mmol/LSumma HealthUrea nitrogen [Mass/Vol]5 mg/dLLow7 - 17 mg/dLSumma HealthSumma HealthLaboratory - Hematology and Cell countsOrdered By: Shruthi Fontana on 51-10-7515Whfdbwciu (Bld) [#/Vol]335 10*3/uL140 - 440 10*3/uLSumma HealthPlatelets (Bld) [#/Vol]Ordered By: Shruthi Fontana on 11-28-2022 Interpretation and review of laboratory resultsNormOhio Valley Hospital Health CHEMISTRYOrdered By: [employer] on 14-04-1457Smbp T4 index Calc [Mass/Vol] 5.98 ng/dLNormal5.90 - [...] Code0.1 - 0.9 mg/dL FT RemisolChloride [Moles/Vol]102 mmol/XMwxnni925 - 111 mmol/LFTMC RemisolCO2 [Moles/Vol]18 mmol/LLow21 - 31 mmol/LFTMC RemisolCreatinine [Mass/Vol]0.6 mg/dL Normal0.5 - 1.3 mg/dLFTMC RemisolGFR/1.73 sq M.predicted among blacks MDRD (S/P/Bld) [Vol rate/Area]mL/min/1.73 z8Bxehsa>=59mL/min/1.73 m2FT[facility] Chem S GFR/1.73 sq M.predicted among non-blacks MDRD (S/P/Bld) [Vol rate/Area] mL/min/1.73 q0Qbcxha>=59mL/min/1.73 m2[facility] Chem SGlobulin (S) [Mass/Vol]4.0 g/dL Normal1.4 - 4.0 gm/dLCORDELL [facility] RemisolPotassium [Moles/Vol]3.7 mmol/LNormal3.5 - 5.3 mmol/LFTMC RemisolProtein [Mass/Vol]7.1 g/dLNormal6.0 - 7.8 gm/dLCORDELL [facility] Remisol Sodium [Moles/Vol]132 mmol/UMfn381 - 145 mmol/LFTMC RemisolUrate [Mass/Vol]4.9 mg/dLNormal2.2 - 7.4 mg/dLCORDE[facility] RemisolUrea nitrogen [Mass/Vol]7 mg/dLNormal5 - 21 mg/dLCORDELL [facility] RemisolCOAGULATIONOrdered By: Amairani Jenkins on 16-55-1048eWJO Coag (PPP) [Time]25.3 dVaortn91.1 - 36.5 second(s)[facility] Auto Coag Fibrin+Fibrinogen fragments (S) [Mass/Vol]>10 and <40 *ABN* (11/27/22 3:14 PM)Invalid Interpretation Code<10[facility] Man SeroFibrinogen Coag (PPP) [Mass/Vol]539 mg/pTLgin286 - 393 mg/dLCORDELL [facility] Auto CoagINR Coag (PPP) [Relative time]0.9 {INR}Invalid Interpretation CodeCORDELL MEMORIAL [facility] Auto CoagPT Coag (PPP) [Time]10.1 sNormal9.4 - 12.5 second(s)[facility] Auto CoagHEMATOLOGYOrdered By: Raquel Arteaga on 95-09-1786Kzqpoxfurre distribution width (RBC) [Ratio]12.9 %Creigt40.9 - 14.2 % [facility] HemeAutoSSHematocrit (Bld) [Volume fraction]34.2 %Jvrnxs02.0 - 46.0 %[facility] HemeAutoSSHemoglobin (Bld) [Mass/Vol]11.0 g/dLLow12.0 - 16.0 gm/dLCORDE[facility] HemeAutoSSMCH (RBC) [Entitic mass]27.3 vtJhyuvy69.0 - 34.0 pgFTMC HemeAutoSSMCHC (RBC) [Mass/Vol]32.3 g/bIUlviak64.4 - 36.0 gm/dLFT HemeAutoSSMCV (RBC) [Entitic vol]84.6 pMZpeisr58.0 - 100.0 fLFT HemeAutoSSPlatelet mean volume (Bld) [Entitic vol]8.2 fLNormal6.4 - 10.8 fLFT HemeAutoSSPlatelets (Bld) [#/Vol]273.0 E9/SBlyxee558.0 - 500.0 E9/LFC HemeAutoSSRBC (Bld) [#/Vol]4.0 E12/LLow4.3 - 5.9 E12/LFINTEGRIS GROVE [facility] HemeAutoSSWBC corrected for nucl RBC Auto (Bld) [#/Vol]15.7 E9/LHigh4.0 - 11.0 E9/LFC HemeAutoSSComment on above:Result Comment: Slide reviewed by ts Unable to obtain accurate platelet count due to platelet clumping. Platelet count estimate appears normal on slide..URINALYSISOrdered By: Amairani Jenkins on 47-75-2981Tnxashlrb Ql (U)Negative (11/27/22 1:55 PM)NormalNegativeCORDELL [facility] UA Auto SSClarity (U)Clear (11/27/22 1:55 PM)NormalClearFINTEGRIS [facility] UA Auto SSColor (U)Yellow (11/27/22 1:55 PM)NormalYellowFT UA Auto SSEpithelial cells.squamous LM.HPF (Urine sed) [#/Area]3-4 /HPFNormal0-2/HPFFTMC UA Auto SSGlucose Test strip (U) [Mass/Vol]Negative (11/27/22 1:55 PM)NormalNegativeCORDELL [facility] UA Auto SSHemoglobin Ql (U)1+ *ABN* (11/27/22 1:55 PM)Invalid Interpretation CodeNegativeFT UA Auto SSKetones (U) [Mass/Vol]Negative (11/27/22 1:55 PM)NormalNegativeCORDELL [facility] [place] UA Auto SSLithium.plasma/[place].RBC (Bld) [Mass ratio]4-20 /HPFNormal0-3/HPFCORDELL [facility]ORIAL [facility] [place] UA Auto SSNitrite Ql (U)Negative (11/27/22 1:55 PM)NormalNegativeCORDELL [facility] [place] [facility] Auto SSpH (U)6.5 *NA* (11/27/22 1:55 PM)Invalid Interpretation Code5.0 - 9.0[facility] [place] UA Auto SSProtein (U) [Mass/Vol]Negative (11/27/22 1:55 PM)NormalNegativeCORDELL [facility] [place] UA Auto SSSpecific gravity (U) [Rel density] 1.010 *NA* (11/27/22 1:55 PM)Invalid Interpretation Code1.005 - 1.030[facility] [place] UA Auto SSUA Spec DescClean Catch (11/27/22 1:55 PM)NormalCORDELL [facility]ORIAL [facility] [place] UA Auto SSUrobilinogen Qn (U)[id number] {[place]'U}/dL Normal0.0 - 1.0 EU/dLCORDELL [facility]ORIAL [facility] [place] UA Auto SSWBC Auto Ql (U)Negative (11/27/22 1:55 PM)NormalNegativeCORDELL [facility] [place] UA Auto SSWBC LM.HPF (Urine sed) [#/Area]0-5 /HPFNormal0-5/HPFCORDELL MEMORIAL [facility] [place] UA Auto SSCHEMISTRYOrdered By: SYSTEM SYSTEM on 07-14-2022 Albumin [Mass/Vol]3.6 g/dLNormal3.3 - 5.0 gm/dLCORDELL [facility]OR[facility] [place] RemisolAlbumin/Globulin [Mass ratio]1.1 {ratio}Normal1.1 - 2.2FTMC RemisolALP [Catalytic activity/Vol]41 [iU]/tJvpeub39 - 98 Int._Unit/LFTMC RemisolALT No additional P-5'-P [Catalytic activity/Vol]19 [iU]/dNormal6 - 46 Int._Unit/LFTMC RemisolAnion gap [Moles/Vol] 11 mmol/LNormal6 - 16 mEq/LFTMC RemisolAST [Catalytic activity/Vol]21 [iU]/d Normal5 - 43 Int._Unit/LFTMC RemisolBilirubin [Mass/Vol]0.7 mg/dLNormal0.0 - 1.1 mg/dLCORDELL [facility] [place] RemisolBilirubin.direct [Mass/Vol]0.1 mg/dLNormal0.1 - 0.4 mg/dLFTMC RemisolBilirubin.indirect [Mass or moles/Vol]0.6 mg/dLNormal0.1 - 0.9 mg/dLFTMC RemisolCalcium [Mass/Vol]8.9 mg/dLNormal8.9 - 11.1 mg/dLFTMC RemisolChloride [Moles/Vol]107 mmol/TUxshnq704 - 111 mmol/LFTMC RemisolCO2 [Moles/Vol]22 mmol/L Xsfznw80 - 31 mmol/LFTMC RemisolCreatinine [Mass/Vol]0.6 mg/dLNormal0.5 - 1.3 mg/dLFTMC RemisolGFR/1.73 sq M.predicted among blacks MDRD (S/P/Bld) [Vol rate/Area]mL/min/1.73 a4Gvtdjv>=59mL/min/1.73 m2FTMC Chem SGFR/1.73 sq M.predicted among non-blacks MDRD (S/P/Bld) [Vol rate/Area]mL/min/1.73 x4Bitnop >=59mL/min/1.73 m2[facility] Chem SGlobulin (S) [Mass/Vol]3.3 g/dLNormal1.4 - 4.0 gm/dLFTMC RemisolGlucose [Mass/Vol]99 mg/jNRyknbp68 - 199 mg/dLFTMC Remisol Potassium [Moles/Vol]3.5 mmol/LNormal3.5 - 5.3 mmol/LFTMC RemisolProtein [Mass/Vol]6.9 g/dLNormal6.0 - 7.8 gm/dLFTMC RemisolSodium [Moles/Vol]136 mmol/L Ahkjjb432 - 145 mmol/LFTMC RemisolUrea nitrogen [Mass/Vol]8 mg/dLNormal5 - 21 mg/dLFTMC RemisolUrea nitrogen/Creatinine [Mass ratio]13 mg/apDlcwki18 - 20FT[facility] RemisolHEMATOLOGYOrdered By: SYSTEM SYSTEM on 90-56-6564Dwprdtdsb/100 WBC (Bld) 0.3 %Normal0.0 - 2.0 %[facility] [...] 7.5 E9/LFTMC HemeAutoSSHEMATOLOGYOrdered By: Teena Quiroz on 57-91-8588Xmuoeteatjp distribution width (RBC) [Ratio]12.9 %Normal 10.9 - 14.2 %[facility] HemeAutoSSHematocrit (Bld) [Volume fraction]33.6 %Low34.0 - 46.0 %[facility] HemeAutoSSHemoglobin (Bld) [Mass/Vol]11.5 g/dLLow12.0 - 16.0 gm/dL [facility] HemeAutoSSMCH (RBC) [Entitic mass]28.5 mnNmiegr68.0 - 34.0 pgFTMC HemeAutoSSMCHC (RBC) [Mass/Vol]34.1 g/eVVywgqm84.4 - 36.0 gm/dLFTMC HemeAutoSS MCV (RBC) [Entitic vol]83.5 aSEyxvpf69.0 - 100.0 fLFTMC HemeAutoSSPlatelet mean volume (Bld) [Entitic vol]8.1 fLNormal6.4 - 10.8 fLCORDELL [facility] HemeAutoSSPlatelets (Bld) [#/Vol]271.0 E9/POtnnhi874.0 - 500.0 E9/[facility] HemeAutoSSRBC (Bld) [#/Vol] 4.0 E12/LLow4.3 - 5.9 E12/[facility] HemeAutoSSWBC corrected for nucl RBC Auto (Bld) [#/Vol]13.9 E9/LHigh4.0 - 11.0 E9/[facility] HemeAutoSSURINALYSISOrdered By: Deirdre Gilliam on 35-30-8431Cxhvllno LM Ql (Urine sed)Trace /HPFNormalTrace/HPFCORDELL [facility]OR[facility] UA Auto SSBilirubin Ql (U)Negative (07/14/22 5:00 AM)NormalNegativeCORDELL MEMORIAL [facility] UA Auto SSClarity (U)Clear (07/14/22 5:00 AM)NormalClearFINTEGRIS [facility] U[facility] Auto SSColor (U)Yellow (07/14/22 5:00 AM)NormalYellowCORDELL MEMORIAL [facility]OS[facility] UA Auto SSEpithelial cells.squamous LM.HPF (Urine sed) [#/Area]3-4 /HPFNormal0-2/HPFCORDELL [facility]ORIAL [facility] UA Auto SSGlucose Test strip (U) [Mass/Vol]Negative (07/14/22 5:00 AM)NormalNegativeCORDELL [facility]ORIAL [facility] UA Auto SSHemoglobin Ql (U)Trace *ABN* (07/14/22 5:00 AM)Invalid Interpretation CodeNegativeCORDELL [facility]ORIAL [facility] UA Auto SSKetones (U) [Mass/Vol]Negative (07/14/22 5:00 AM)NormalNegativeCORDELL [facility]OR[facility] UA Auto SSLithium.plasma/[place].RBC (Bld) [Mass ratio]0-3 /HPFNormal0-3/HPFCORDELL [facility]OR[facility] UA Auto SSMucus Ql (Urine sed)Trace (07/14/22 5:00 AM)NormalCORDELL MEMORIAL [facility] UA Auto SSNitrite Ql (U)Negative (07/14/22 5:00 AM)NormalNegativeCORDELL MEMORIAL [facility] UA Auto SSpH (U)6.0 *NA* (07/14/22 5:00 AM)Invalid Interpretation Code5.0 - 9.0[facility] Auto SSProtein (U) [Mass/Vol]Negative (07/14/22 5:00 AM)NormalNegativeCORDELL MEMORIAL [facility] UA Auto SSSpecific gravity (U) [Rel density] 1.020 *NA* (07/14/22 5:00 AM)Invalid Interpretation Code1.005 - 1.030[facility]A Auto SSUA Spec DescClean Catch (07/14/22 5:00 AM)NormalCORDELL MEMORIAL [facility]OSP[facility] UA Auto SSUrobilinogen Qn (U)0.3964456 {Aspen'U}/dLNormal0.0 - 1.0 EU/dLCORDELL MEMORIAL [facility] UA Auto SSWBC Auto Ql (U)Negative (07/14/22 5:00 AM)NormalNegativeCORDELL [facility]A Auto SSWBC LM.HPF (Urine sed) [#/Area]0-5 /HPFNormal0-5/HPFCORDELL MEMORIAL [facility] UA Auto SSCHEMISTRYOrdered By: SYSTEM SYSTEM on 00-72-4815Nwngkwc [Mass/Vol]4.4 g/dLNormal3.3 - 5.0 gm/dLFTMC Remisol Albumin/Globulin [Mass ratio]1.1 {ratio}Normal1.1 - 2.2[facility] RemisolALP [Catalytic activity/Vol]64 [iU]/kHyalgl64 - 98 Int._Unit/LFTMC RemisolALT No additional P-5'-P [Catalytic activity/Vol]107 [iU]/dHigh6 - 46 Int._Unit/LFTMC RemisolAST [Catalytic activity/Vol]63 [iU]/dHigh5 - 43 Int._Unit/LFTMC Remisol Bilirubin [Mass/Vol]1.5 mg/dLHigh0.0 - 1.1 mg/dLFTMC RemisolBilirubin.direct [Mass/Vol]0.2 mg/dLNormal0.1 - 0.4 mg/dLFTMC RemisolBilirubin.indirect [Mass or moles/Vol]1.3 mg/dLHigh0.1 - 0.9 mg/dLFTMC RemisolCholesterol [Mass/Vol]193 mg/wGGjupku496 - 200 mg/dLFTMC RemisolCholesterol in HDL [Mass/Vol]64 mg/dL Invalid Interpretation CodeFTMC RemisolCholesterol in LDL [Mass/Vol]116 mg/dL Normal<=129mg/dLFTMC RemisolCholesterol in VLDL [Mass/Vol]13 mg/dLNormal7 - 40 mg/dLFTMC RemisolGlobulin (S) [Mass/Vol]3.9 g/dLNormal1.4 - 4.0 gm/dLFTMC RemisolProtein [Mass/Vol]8.3 g/dLHigh6.0 - 7.8 gm/dLFTMC RemisolTriglyceride [Mass/Vol]67 mg/dLNormal<=149mg/dLFTMC RemisolCOAGULATIONOrdered By: Courtney Case on 98-00-7786OTL Coag (PPP) [Relative time]1.0 {INR}Invalid Interpretation Code [facility] Auto CoagPT Coag (PPP) [Time]12.4 fBsetdv42.2 - 12.9 second(s)[facility] Auto CoagHEMATOLOGYOrdered By: SYSTEM SYSTEM on 52-10-6415Hoomrkwcv/100 WBC (Bld)0.7 %Normal0.0 - 2.0 %[facility] HemeAutoSSBasophils/Leukocytes Auto (Bld) [Pure # fraction]0.0 E9/LNormal0.0 - 0.2 E9/LFTMC HemeAutoSSEosinophils/100 WBC (Bld)3.2 %Normal0.0 - 8.0 %[facility] HemeAutoSSEosinophils/Leukocytes Auto (Bld) [Pure # fraction]0.2 E9/LNormal0.0 - 0.5 E9/LFTMC HemeAutoSSLymphocytes/100 WBC (Bld) 31.9 %Dzmktv37.0 - 50.0 %[facility] HemeAutoSSLymphocytes/Leukocytes Auto (Bld) [Pure # fraction]1.9 E9/LNormal1.0 - 4.0 E9/LFTMC HemeAutoSSMonocytes/100 WBC (Bld)9.1 %Normal4.0 - 14.0 %[facility] HemeAutoSSMonocytes/Leukocytes Auto (Bld) [Pure # fraction]0.5 E9/LNormal0.2 - 1.0 E9/LFTMC HemeAutoSSNeutrophils/100 WBC (Bld) 55.1 %Opsrqt72.0 - 75.0 %[facility] HemeAutoSSNeutrophils/Leukocytes Auto (Bld) [Pure # fraction]3.3 E9/LNormal2.0 - 7.5 E9/LFTMC HemeAutoSSHEMATOLOGYOrdered By: Chivo Ward on 42-69-3608Gaioejoqtlw distribution width (RBC) [Ratio]12.9 % Ewauql07.9 - 14.2 %[facility] HemeAutoSSHematocrit (Bld) [Volume fraction]40.1 %Normal 34.0 - 46.0 %[facility] HemeAutoSSHemoglobin (Bld) [Mass/Vol]13.2 g/hGWickrr45.0 - 16.0 gm/dLFTMC HemeAutoSSMCH (RBC) [Entitic mass]27.7 gzMnejys71.0 - 34.0 pgFTMC HemeAutoSSMCHC (RBC) [Mass/Vol]32.8 g/hUOydhnb95.4 - 36.0 gm/dLFTMC HemeAutoSS MCV (RBC) [Entitic vol]84.3 gEOyzxsh20.0 - 100.0 fLFTMC HemeAutoSSPlatelet mean volume (Bld) [Entitic vol]8.5 fLNormal6.4 - 10.8 fLFTMC HemeAutoSSPlatelets (Bld) [#/Vol]299.0 E9/BXszsqc426.0 - 500.0 E9/LFTMC HemeAutoSSRBC (Bld) [#/Vol] 4.8 E12/LNormal4.3 - 5.9 E12/LFTMC HemeAutoSSWBC corrected for nucl RBC Auto (Bld) [#/Vol]5.9 E9/LNormal4.0 - 11.0 E9/LFC HemeAutoSSLMPon 44-98-9266Gsgl risk assessmenta) No falls within the last qvmmBZ-GDFTW-Dxnavr 320 Work Phone: Last menstrual period start bnaugnphewRO-GWSUG-Loqtvn 320 Work Phone: Tobacco use status CPHSb) AtBJ-XZFEQ-Iqvafp 320 Work Phone: OB/SLD INCLUSION TEACHER - Office Visiton 87-53-8875LM/SLD INCLUSION TEACHER - Office VisitDiagnoses/Problems Assessed Endometriosis (617.9) (N80.9) Orders Start: Orilissa 200 MG Oral Tablet; take 1 tablet by mouth twice a day Provider Impressions 26 yo 1. 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 History of Present Sgkhhte6 yo presents as a follow up for [...] again engaged x 1 year working at [employer] [place] Review of Systems Constitutional: no fever, no [...] hours Vitals Vital Signs Recorded: 09Feb2022 11:41AM Yknvsdcv922 Frnsibwcb11 Height5 ft 2 in Hkzqjk189 lb BMI Demxjhxlwa81.51 kg/m2 BSA Calculated1.61 Tobacco Useb) No Fall [...] NormalUH TouchworksXR KNEE LEFT (MIN 4 VIEWS)on 80-77-8152RP KNEE LEFT (MIN 4 VIEWS)EXAM: XR KNEE [...] Joe Lopez MD 09/29/21 Final resultNormalMercy Marcin Riverton HospitalOB/SLD INCLUSION TEACHER - Office Visiton 04-62-1053EE/SLD INCLUSION TEACHER - Office VisitDiagnoses/Problems Assessed Anxiety (300.00) (F41.9) Orders Start: FLUoxetine HCl - 20 MG Oral Capsule; TAKE 1 CAPSULE Daily Provider Impressions 26 yo 1. 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 History of Present Kdqqtfq21 yo with endometriosis was on norethindrone d/c'd [...] Every 6 hours Vitals Vital Signs Recorded: 80Rdz2888 01:19PM Pyhtmpvf728 Cfhwabwdp27 Height5 ft 2 in Ihpiig586 lb BMI Sluzhcscvw08.58 kg/m2 BSA Calculated1.53 Tobacco Useb) No Fall Screeninga) No falls within the last year EBV40Dvy7309 Pain Scale0 Signatures Electronically signed by : Charlene Rodriguez DO; Jun 03 2021 10:55AM EST (Author) NormalUH TouchworksChlamydia sp identified Org specific cx Nom (Genital specimen)Ordered By: Jackelyn Dela Cruz on 85-14-5665Ajmyqdxo Chlamydia Screen NegativeNegativeSumdc HealthHBV surface Ag IA Qlon 67-08-6845Vkkvjnro Hepatitis B Surface AgNegativeNegative, None DetectedSumma HealthHIV 1+2 Ab and HIV1 p24 Ag IA.rapid Nom (S/P/Bld)on 51-59-9601NJJ-1/HIV-2 AbNegativeSumma HealthNo Panel Informationon 47-15-6655Roihkjui Gonorrhea ScreenNegativeNegativeSumma Health External Rubella IGG QuantitationPositiveSumma HealthSumma HealthNo Panel InformationOrdered By: Jackelyn DelaC ruz on 40-06-5720Lmgle HealthReagin Ab RPR Ql (S)on 56-46-6301Drbdsabb RPRNon-ReactiveBorderline, Nonreactive, Weakly Reactive, EquivocalSumma HealthOB/SLD INCLUSION TEACHER - Office Visiton 71-17-4196TS/SLD INCLUSION TEACHER - Office VisitDiagnoses/Problems Assessed Endometriosis (617.9) (N80.9) Never smoker Orders Stop: Norethindrone Acetate 5 MG Oral Tablet Tobacco Use Screening; Status:Complete; Done: 08Gyv6817 Provider Impressions 26 yo 1. 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 declined -CATY,PHOTOENGRAVING SKETCH MAKER LMP 04/11/21 History of Present Hsnacar58 yo with endometriosis bleeding once per month, [...] No Known Drug Allergies Recorded By: Sue Shne; 07/12/2020 1:58:50 PM Current Meds Medication NameInstruction [...] DO; Apr 20 2021 11:04AM EST (Author) [facility] TouchworksTobacco Screening.on 62-54-2098Pkpq risk assessmenta) No falls within the last ytdwXD-KESWX-Xwsdfj 320 Work Phone: Lasb menstrual period start hmtl64Kzz5955 AZ-ZEXZT-Cpavmn 320 Work Phone: Tobacco Screening.b) NiRQ-KZZWL-Zxwxhp 320 Work Phone: Radiologyon 75-43-3885YH Kidney - bilateralNormal ZU-Xtkxuhl-Slovrokxn Work Phone: us RENAL BILATon 06-57-0720NC RENAL BILATMRN: [id number] Patient Name: JUHI COPE STUDY: US RENAL BILAT; 04/14/2021 1:14 pm INDICATION: Recurrent UTI. COMPARISON: None. ACCESSION NUMBER(S): [id number] ORDERING CLINICIAN: TERI CHAU TECHNIQUE: Multiple images [...] ultrasound. Electronically signed by: GENEVIEVE CAR STUPIN, MDJefferson Health Northeast Office Visit (Urology)on 78-28-5921Yqgnqm-up visitDiagnoses/Problems Assessed Recurrent UTI (599.0) (N39.0) Orders Recurrent UTI Start: Nitrofurantoin Monohyd Macro 100 MG Oral Capsule; TAKE 1 CAPSULE Other Please take one capsule after sexual intercourse to prevent UTI Rx By: Teri Chau; Dispense: 30 Days ; #:30 Capsule; Refill: 11;For: Recurrent UTI; ROSY = N; Verified Transmission to [facility] Kid[facility] Bilateral; Status:Hold For - Scheduling; Requested for:56Qab6253; Perform:[facility]; Due:52Lxc3586; Last Updated By:Isela Terrazas; 04/01/2021 9:16:17 AM;Ordered; [...] UTI; ROSY = N; [place] [address] Provider Impressions 26 year old female with history of endometriosis presents today via telehealth as a new patient forevaluation of recurrent UTIs. She reports getting UTIs at least once per month, noting occasional nocturia. Symptoms include burning, frequency, and back pain. She states that some UTIs are related to sexual intercourse but most are not. Patient reports she saw Dr. Booth at [facility] in [place], noting she was only treated with medications and urethral dilation for a supposed stricture.Denies gross hematuria. Patient is a non-smoker. Urine culture from [facility] on 03/04/21 was positive for E. [...] NPV - recurrent UTI History of Present Dkpzvqk47 year old female with history of endometriosis presents today via telehealth as a new patient for evaluation of recurrent UTIs. She reports getting UTIs at least once per month, noting occasional nocturia. Symptoms include burning, frequency, and back pain. She states that some UTIs are related to sexual intercourse but most are not. Patient reports she saw Dr. Booth at [facility] in [place], noting she was only treated with medications [...] content not included)...NormalUH TouchworksNM GASTRIC EMPTYING SOLIDon 31-48-0427DW GASTRIC EMPTYING SOLID* * *Final Report* * * DATE OF EXAM: Nov 05 2020 12:26PM [facility] 0017 - NM GASTRIC EMPTYING [...] 4 HOURS IS CONSISTENT WITH MILD GASTROPARESIS. Bonbon Cream Warmer: PSCB Transcribe Date/Time: Nov 05 2020 1:09P Dictated by : SIDDHARTH PEREA MD This examination was interpreted and the report reviewed and electronically signed by: SIDDHARTH PEREA MD on Nov 05 2020 1:24PM EST [id number] Medical Center AlmaANES POSTPROC EVALon 24-81-8704EEUA POSTPROC EVALHNO ID: [id number] Author: Austin Story Service: ? Author Type: [...] October 25, 2020 TIME: 2:52 PM CSN: [id number] HospitalANES PRE-OPon 22-03-4897FPIT PRE-OPHNO ID: [id number] Author: Austin Story Service: ? Author Type: [...] October 25, 2020 TIME: 1:08 PM CSN: [id number]-Limestone Hospital PATHOLOGYon 10-25-2020 SURGICAL PATHOLOGYSpecimen originated from [facility] Specimen #: [id number] Submitting Physician: MALCOLM CRUZ MD FINAL DIAGNOSIS 1. Small bowel, biopsy (A) - Small bowel mucosa with no pathologic diagnostic abnormality; negative for celiac disease, granulomas and dysplasia. 2. Stomach, biopsy (B) - Gastric oxyntic-type mucosa with no pathologic diagnostic abnormality; see comment. /[facility] 10/26/2020 COMMENT 2. No microorganisms [...] in one cassette. Gross examination performed at [facility], [address] [place] [address] 10/25/2020 7:59:40 PM Date of Report: 10/26/2020 Date of Procedure: 10/25/2020 Date of Receipt: 10/25/2020 Submitted by: MALCOLM CRUZ MD Location: [facility] Diagnostic interpretation performed at [facility], [address] [place] [address]. [place] Number: [id number] Clinic Reference LabComment on above:Performed By: #### S #### See report for performing lab information.SURGICAL PATHOLOGYSpecimen originated from [facility] Specimen #: [id number] Submitting Physician: MALCOLM CRUZ MD FINAL DIAGNOSIS 1. Small bowel, biopsy (A) - Small bowel mucosa with no pathologic diagnostic abnormality; negative for celiac disease, granulomas and dysplasia. 2. Stomach, biopsy (B) - Gastric oxyntic-type mucosa with no pathologic diagnostic abnormality; see comment. /[facility] 10/26/2020 COMMENT 2. No microorganisms [...] in one cassette. Gross examination performed at [facility], [address] [place] [address] EJL 10/25/2020 7:59:40 PM Date of Report: 10/26/2020 Date of Procedure: 10/25/2020 Date of Receipt: 10/25/2020 Submitted by: MALCOLM CRUZ MD Location: [facility] Diagnostic interpretation performed at [facility], [address] [place] [address]. [place] Number: [id number] Lakeview [facility]/ GROUP TESTon 67-15-6119DCX [facility] Medical CenterComment on above: Performed By: #### VERAB #### [facility] [address] [place], [place] [address]SL TYPEPositiveWillis-Knighton South & the Center for Women’s HealthComment on above: Performed By: #### VERAB #### [facility] [address] [place], [place] [address]Pqopv Surgical Pathology Departmenton 49-40-0884Xtzyh Surgical Pathology DepartmentName JUHI COPE Pathologist: ASHLEY HURTADO MD Date of Procedure: 09/01/2020 Date Received: 09/01/2020 Date Reported 09/03/2020 Submitting Physician: CHARLENE RODRIGUEZ D.O. Location: [facility] External # FINAL DIAGNOSIS A. LEFT [...] D. Right pelvic sidewall peritoneum are 2 oqzi-ipb-qcm, irregular fragments of tissue measuring 1.3 x [...] toto in one cassette. SB amisha/09/02/2020 [facility] Department of Pathology [address] [place], [place] [address]SsmijhSNFormerly Vidant Duplin HospitalComment on above:Performed By: #### [facility] #### [facility] Surgical Pathology Department [address] [facility] [address]Nrbeefk and Physical - Surgery > 30 dayson 39-87-8329Ercynlp and Physical - Surgery > 30 daysHistory [...] T&S: O+, COVID-19: negative OB Hx: None. 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 PMHx: endometriosis Surg Hx: diagnostic laparoscopy, appendectomy (2016) Meds: Meloxicam, Hyde-Linyah, Norethindrone acetate Social Hx: No tobacco, no [...] the note. I personally evaluated the patient [id number]-1276 Attending Provider Inpatient Certification StatementObservation patient/other outpatient [...] Updated: 01-Sep-2020 10:04 by Charlene Rodriguez ()[facility] Women’s HealthHomegoing Instructionson 84-09-5834Lkalckibn InstructionsAdditional Instructions: Handouts Given: Topic 1Anesthesia Homegoing Instructions Topic 2Surgical Site Infection Handout Topic 3New Medication Education Topic 4Suggamedex handout Electronic Signatures: Aminata Gomez (DIALLO) (Signed 01-Sep-2020 16:07) Authored: Additional Instructions Last Updated: 01-Sep-2020 16:07 by Aminata Gomez (DIALLO)[facility] for Women’s HealthPatient Profile - Preop v2on 12-35-6752Gveiryr Profile - Preop b4Oorrhvq: Initial Info: How to be Addressedalexis Spoken Language PreferredEnglish Are you currently using the Personal Electronic Health Record or [employer] Stated Reason for Admissionseeing if my endometriosis is back Primary Contact Name and Numberlogan [phone] Patient Belongingsclothing locker glasses with bf Medications Brought to Hospitalno General Health: Weight in kg55.6 kilogram(s) Weight in cjh057.5 pound(s) Weight Methodactual (measured) Scale Typestanding Height [...] Arrangementshouse Lives Withparent(s) Resource/Environmental Concernsnone Anticipated Transition [employer] Anticipated at Transitionnone Substance: Current or [...] Learning Preferencesverbal instruction Cultural Considerationsnone Developmental Considerationsnone Restorationism Considerationsnone Other learner availableno Falls RiskPatient location auto qualifies him/her for HIGH RISK. Are there any cultural, spiritual, synagogue practices/values/needs that are important for us to [...] - Surgery > 30 days 01-Sep-2020 03:42[facility] for Women’s HealthPreop Checkliston 60-67-7075Dxmxa Checklist Preop Checklist: Preop Checklist: Arrival Oins30-Lrh-4627 Arrival Time12:30 Procedure Typelaparoscopic endometriosis excision NPO Ajekzj66-Khn-7868 00:00 ID Band Onyes Allergy Bandno known [...] Updated: 01-Sep-2020 12:35 by Sierra Kraft (RN)[facility] for Women’s HealthANTIBODY IDENT.on 50-99-3994PJUFEHAJ IDENT.SEE BELOWNormFormerly Vidant Duplin HospitalComment on above:Result Comment: NO CLINICALLY SIGNIFICANT ANTIBODIES IDENTIFIED.Performed By: #### ABID #### [facility] [address] [place], [place] [address]FEBbt 15-22-8369Jloikxzrskh distribution width (RBC) [Ratio] 12.1 %Twlkfn23.5 - 14.5Newton Medical CenterComment on above:Performed By: #### CBC #### [facility] [address] [place], [place] [id number] (Bld) [Volume fraction]39.6 %Icflmh82.0 - 46.0Newton Medical CenterComment on above:Performed By: #### CBC #### [facility] [address] [place], [place] [id number] (Bld) [Mass/Vol]12.6 g/aJEnvykt42.0 - 16.0Newton Medical CenterComment on above:Performed By: #### CBC #### [address] [id number] (RBC) [Mass/Vol]31.8 g/dLLow32.0 - 36.0Newton Medical CenterComment on above:Performed By: #### CBC #### [address] [id number] (RBC) [Entitic vol]90 yUSjuddm55 - 100Newton Medical CenterComment on above:Performed By: #### CBC #### [address] [id number] (Bld) [#/Vol]333 10*3/dZUfnmdx195 - 450Newton Medical CenterComment on above:Performed By: #### CBC #### [address] [id number] x10E12/LNormal4.00 - 5.20[facility] Comment on above:Performed By: #### CBC #### [address] [id number] (Bld) [#/Vol]5.6 10*3/uLNormal4.4 - 11.3Newton Medical CenterComment on above:Performed By: #### CBC #### [address] [id number] 2019, SCREEN ASYMPTOMATICon 69-74-2634ZJOR-CoV-2 (COVID-19) RNA TENA+probe Ql (Unsp spec)Not detectedNormalNot DetectedNewton Medical CenterComment on above:Result Comment: This assay [...] patient management decisions. Fact sheet for providers: https://www.fda.gov/media/777652/download Fact sheet for patients: https://www.fda.gov/media/237709/download This test has received FDA Emergency Use Authorization (EUA) and has been verified by [facility] ([facility]). This test is only authorized for the duration of time that circumstances exist to justify the authorization of the emergency use of in vitro diagnostic tests for the detection of SARS-CoV-2 virus and/or diagnosis of COVID-19 infection under section 564(b)(1) of the Act, 21 U.S.C. 360bbb-3(b)(1), unless the authorization is terminated or revoked sooner. [facility] is certified under CLIA-88 as qualified to perform high complexity testing. Testing is performed in the [facility] laboratories located at [address] [place] [address].Performed By: #### COVSC #### [place], [place] [address]Lab Specimen SourceNasal, NasopharyngealNoBanner Fort Collins Medical CenterComment on above:Performed By: #### COVSC #### [place], [place] [address]TYPE + SCREENon 78-19-7917SCF MERCY MEM[facility]IAL HOSPITALONoWake Forest Baptist Health Davie HospitalComment on above:Performed By: #### T+S #### [facility] [address] [place], [place] [address]XN TYPEPositiveWillis-Knighton South & the Center for Women’s HealthComment on above: Performed By: #### T+S #### [facility] [address] [place], [place] [address]BFD TYPECanceledHutchinson Health HospitalComment on above:Order Comment: TEST TYPE + SCREEN WAS CANCELLED, 08/30/2020 13:37 JOP. Performed By: #### T+S #### [facility] [address] [place], [place] [address]LB TYPECanceledNormPresbyterian/St. Luke's Medical CenterComment on above:Order Comment: TEST TYPE + SCREEN WAS CANCELLED, 08/30/2020 13:37 JOP. Performed By: #### T+S #### [facility] [address] [place], [place] [address]NRKWxg 49-30-1393RJMNKltwvec:Juhi Cope MRN: Height:5' 2 (1.575 m) Weight:120 [...] for the following basenames: K,HCT Progress Notes ([facility] REJ AV4): Jaquelin Wesley Ma 10/19/2020 2:35 [...] 1 10 oz. Bottle of Magnesium Citrate (Lemon/[place]) ? A test for COVID 19 test [...] cooked potatoes; Special K, Rice Krispies or Concepcion Flakes cereals; ripe bananas; melons (except watermelon [...] carbonated beverages such as chi aislinn or lemon-ruby soda; Gatorade? or other sports drinks (not [...] make sure you have a responsible adult limousine driver to take you home after procedure. Due to having sedation, you may not drive the rest of the day. ? If you need to reschedule, please call [phone] ?Date/Provider Dr Cruz Procedure:colonoscpy Facility:[facility] Prep ordered( if aware):miralax Knowledge of prep instructions:posted to [employer] Diabetic:no Blood Thinners:no Pacemaker with defibrillator:no left message for patient to return call. Nurse triage please give below message. PLEASE READ PATIENT INSTRUCTIONS BELOW. THANK YOU.[facility] on [id number] ID: [id number] Author: Leon Perkins (Rt) Fito Blanchard Service: Radiology Author Type: Cutting And Printing Machine Operator Type: Progress Notes Filed: 07/29/2020 11:06 [...] BY: RT Daya July 29, 2020 11:01 [facility] SUPINE W UPR/DECUB/CTLon [id number] ABD 2V SUPINE W UPR/DECUB/CTL* * *Final [...] structures are normal. No other significant abnormality. Bonbon Cream Warmer: DAVID Transcribe Date/Time: Jul 29 2020 11:19A Dictated by : LALI ORNELAS MD This examination was interpreted and the report reviewed and electronically signed by: LALI ORNELAS MD on Jul 29 2020 11:19AM EST [id number] Vital Signs Date TimeVital SignValuePerforming ArxnqipowMjgxyawh49-94-6914 15:04-0500Body mass index (BMI) [Ratio]30.36 kg/j9Jknpv Kiesha DO Work Phone: 1(410)260-[address] [place], [place] [address]Yzfnmadswo20-36-0392 15:04-0500Body .3 kg Nathan Kiesha DO Work Phone: [phone] [address]-05-2025 15:04-0500Diastolic blood xvdrsgei42 mm[Hg]Nathan Kiesha DO Work Phone: 1(262)241-[address] [place], [place] [address]Xhlgfeepfc38-08-5777 15:04-0500Systolic blood mjxplrhe401 mm[Hg]Nathan Kiesha DO Work Phone: 1(084)[address] [place], [place] 7823310-22-2025 16:04-0400Body mass index (BMI) [Ratio]29.78 kg/q2Gikqp Kiesha DO Work Phone: 1(899)568-[address] [place], [place] [address]Jvtsnegjeg54-56-4084 16:04-0400Body ywkgfd64.85 kgCorey Kiesha DO Work Phone: 1(959)[facility] [place], [place] [address]Avjdgyysbu35-03-3377 16:04-0400Diastolic blood vfnothld32 mm[Hg]Nathan Kiesha DO Work Phone: 1(969)[facility] [place], [place] [address]Jzfkzvqsuj13-38-8635 16:04-0400Systolic blood ssyjrijc098 mm[Hg]Nathan Kiesha DO Work Phone: 1(913)380[place] [address]-16-2025 10:34-0400Body mass index (BMI) [Ratio]29.26 kg/q5IucdhvbjMadhuri Monroy MD Work Phone: [facility]-16-2025 10:34-0400Body vjaxfn86.58 kgMadhuri Monroy MD Work Phone: 1(851)099-[address] [place], [place] 0462210-16-2025 10:34-0400Diastolic blood sqolhltj26 mm[Hg]Madhuri Monroy MD Work Phone: 1(419)[address] [place], [place] 2120110-16-2025 10:34-0400Systolic blood popauujr239 mm[Hg]Madhuri Monroy MD Work Phone: 1(419)[address] [place], [place] 2120110-10-2025 14:48-0400Body kyytwd740.5 cmMine Denise MD Work Phone: 1(419)[address] [place], [place] 2120110-10-2025 14:48-0400Body mass index (BMI) [Ratio]29.04 kg/q3OdoblgMine Denise MD Work Phone: 1(419)[address] [place], [place] 2120110-10-2025 14:48-0400Body wncsip65.03 kgMine Denise MD Work Phone: 1(419)[address] [place], [place] 2120110-10-2025 14:48-0400Diastolic blood mm[Hg]Mine Denise MD Work Phone: 1(419)[address] [place], [place] 2120110-10-2025 14:48-0400Heart rate 104 /minMine Denise MD Work Phone: 1(419)[address] [place], [place] 2120110-10-2025 14:48-0400Systolic blood yxgsjzyt691 mm[Hg]Mine Denise MD Work Phone: 1(299)[address] [place], [place] 2120110-09-2025 15:54-0400Body mass index (BMI) [Ratio]29.41 kg/n4ClejopwcSteph Keane LIFE SKILLS INSTRUCTOR Work Phone: 1(187)[address] [place], [place] [address]Zxmpmhntef35-26-5169 15:54-0400Body pltary91.94 kgSteph Keane LIFE SKILLS INSTRUCTOR Work Phone: [phone] HospitalUacnnoiugp66-77-4294 15:54-0400Diastolic blood ofodjugk58 mm[Hg]Steph Keane LIFE SKILLS INSTRUCTOR Work Phone: 1(151)578-[facility] HospitalYgbyfmzbst03-77-8073 15:54-0400Systolic blood tjsbdzol121 mm[Hg]Steph Keane LIFE SKILLS INSTRUCTOR Work Phone: [facility] HospitalSvahffztyh90-91-6852 15:37-0400Body mass index (BMI) [Ratio]29.23 kg/s2CrgeehduSteph Keane LIFE SKILLS INSTRUCTOR Work Phone: [facility] HospitalKnmeqqpxjc00-88-3059 15:37-0400Body zcxtxu83.48 kgSteph Rickettserly LIFE SKILLS INSTRUCTOR Work Phone: [facility] HospitalWpejfxqqfd29-01-5331 15:37-0400Diastolic blood mm[Hg]Steph Keane LIFE SKILLS INSTRUCTOR Work Phone: [facility] HospitalEihhzsxezo77-75-3713 15:37-0400Systolic blood grvsyltq843 mm[Hg]Steph Rickettserly LIFE SKILLS INSTRUCTOR Work Phone: [facility] HospitalXbxzvqpeon51-45-0339 15:55-0400Body mass index (BMI) [Ratio]29.45 kg/m0YehssxTeena Sarmiento RN Work Phone: 1(869)961-[address] [place], [place] 0462209-29-2025 15:55-0400Body .03 kgTeena Sarmiento RN Work Phone: 1(581)521-[address] [place], [place] 4606809-17-2025 14:32-0400Body mass index (BMI) [Ratio]27.82 kg/b8Htxrz Kiesha DO Work Phone: [facility] HospitalXkewfemqrp30-89-5149 14:32-0400Body apguii07 kg Nathan Kiesha DO Work Phone: [facility] HospitalMxzgnjjyva73-81-2335 14:32-0400Diastolic blood cnvefphn32 mm[Hg]Nathan Kiesha DO Work Phone: [place] [address]Lognyucssa28-84-9405 14:32-0400Systolic blood olgklgct208 mm[Hg]Nathan Kiesha DO Work Phone: [facility] HospitalWwlkitvbxw93-54-7284 15:36-0400Body haaeco670.5 cmGeorge Kageovanian DO Work Phone: NOEl[facility] HospitalPtyyjqrffb24-68-0411 15:36-0400Body mass index (BMI) [Ratio]27.62 kg/s6Uozhijsherita Beltran DO Work Phone: MVEllett [facility] HospitalLxncqaceei04-66-7119 15:36-0400Body temperature 97.11 [degF]Eliceo Beltran DO Work Phone: NOEl[facility] HospitalMkuefyqrtx18-05-7757 15:36-0400Body .49 kgGeorsherita Beltran DO Work Phone: ZZEllett Memorial HospitalHddjsnpmvx63-57-4431 15:36-0400Diastolic blood sbbykjtz11 mm[Hg]Eliceo Beltran DO Work Phone: KUEllett Memorial HospitalVvqecyykqp08-17-1323 15:36-0400Heart rate97 /min Eliceo Beltran DO Work Phone: [facility] HospitalAxlelktbld77-21-7414 15:36-6426HvM3% (BldA) [Mass fraction]98 %Eliceo Beltran DO Work Phone: NTEllett Memorial HospitalVljslxfmcp08-18-0194 15:36-0400Systolic blood cccalqjd304 mm[Hg]Eliceo Beltran DO Work Phone: [facility] HospitalPdgvepdqpb64-34-4805 15:42-0400Body mass index (BMI) [Ratio]26.48 kg/f1Sjhmt Fazio DO Work Phone: [facility] HospitalJvnkdqwtjn78-87-8599 15:42-0400Body .68 kgCorepearl Cabrerao DO Work Phone: [facility] HospitalErnxuqhkha66-52-2385 15:42-0400Diastolic blood msdovifs10 mm[Hg]Nathan Cabrerao DO Work Phone: [facility] HospitalOciochnzan30-45-9637 15:42-0400Systolic blood iltxssam560 mm[Hg]Nathanpearl Cabrerao DO Work Phone: [facility] HospitalOwnblgzzyk69-97-0659 14:33-0400Body mass index (BMI) [Ratio]26.73 kg/x6Qyaan Kiesha DO Work Phone: [facility] HospitalEosjmwpkzt88-33-7976 14:33-0400Body .28 kgCorey Kiesha DO Work Phone: [facility] HospitalHenbayzkac50-51-9571 14:33-0400Diastolic blood axhybnvl39 mm[Hg]Nathan Kiesha DO Work Phone: 1(500)773-[address] [place], [place] [address]Mcdyjumxjt53-83-4022 14:33-0400Systolic blood tagkjgcn379 mm[Hg]Nathan Kiesha DO Work Phone: 1(823)855-[address] [place], [place] [address]Iogokcbomy37-92-2470 14:45-0400Body mass index (BMI) [Ratio]25.24 kg/b0Jnrgi Kiesha DO Work Phone: 1(171)231-[address] [place], [place] [address]Dolgzduent34-44-7619 14:45-0400Body ehghvh51.6 kg Nathan Kiesha DO Work Phone: 1(249)997-[address] [place], [place] [address]Yavybtvsqu61-13-2683 14:45-0400Diastolic blood xwhwaykk03 mm[Hg]Nathan Kiesha DO Work Phone: 1(293)035-[address] [place], [place] [address]Mpxvbspjza47-64-5791 14:45-0400Systolic blood vsuoxbop782 mm[Hg]Nathan Kiesha DO Work Phone: 1(933)359-[address] [place], [place] [address]Lhpwgnakxw55-51-5657 10:29-0400Body mass index (BMI) [Ratio]25.68 kg/m2[facility]06-06-2025 10:29-0400Body nwkuxe72.69 kgMiss[facility] Center02-24-2025 15:08-0500Body mass index (BMI) [Ratio]25.99 kg/t0Pvwhy Kiesha DO Work Phone: 1(309)192-[address] [place], [place] [address]Dkhuaofsjl88-66-9352 15:08-0500Body akdtzg29.47 kgCorey Kiesha DO Work Phone: 1(020)508-[address] [place], [place] [address]Ebunjcumbf76-84-0818 15:08-0500Diastolic blood vjaflbdw92 mm[Hg]Nathan Kiesha DO Work Phone: 1(558)094-[address] [place], [place] [address]Znnjqikrxd61-05-2659 15:08-0500Systolic blood jirfojbq143 mm[Hg]Nathan Kiesha DO Work Phone: 1(241)578-[address] [place], [place] [address]Bandneqrxh88-69-8536 15:53-0500Body xiaodm313.5 cmGemartha Beltran DO Work Phone: noEllett [facility] HospitalSqoswylsbo31-13-9606 15:53-0500Body mass index (BMI) [Ratio]25.61 kg/q8Qiblucmartha Beltran DO Work Phone: noEllett [facility] HospitalCxzinnqmkn98-45-8412 15:53-0500Body temperature 97.11 [degF]Eliceo Beltran DO Work Phone: noEllett [facility] HospitalKtgzimmhcj33-79-0867 15:53-0500Body yfiutw68.5 kg Eliceo Beltran DO Work Phone: noEl[facility] HospitalWkdcnnxxzc14-60-9372 15:53-0500Diastolic blood mm[Hg]Eliceo Beltran DO Work Phone: noEl[facility] HospitalKcpllwsocb25-34-5376 15:53-0500Heart rate51 /min Eliceo Beltran DO Work Phone: noEllett Memorial HospitalBjavwnhsew51-21-3586 15:53-0571TbT6% (BldA) [Mass fraction]98 %Eliceo Beltran DO Work Phone: noEl[facility] HospitalWgzeeftfeg30-34-2303 15:53-0500Systolic blood dvrwsezb663 mm[Hg]Eliceo Beltran DO Work Phone: noEllett [facility] HospitalJpnghtkuyu27-72-5409 11:15-0400Body mass index (BMI) [Ratio]25.97 kg/r6Gybjw Fazio DO Work Phone: [facility] HospitalDrvirqbetq09-39-1226 11:15-0400Body evmepl20.41 kgNathan Pop DO Work Phone: NOEllett [facility] HospitalAripdrlopd47-38-0460 11:15-0400Diastolic blood fqvzcqic69 mm[Hg]Nathan Pop DO Work Phone: [facility] HospitalEclscevaca40-18-1891 11:15-0400Systolic blood ouuttjlp605 mm[Hg]Nathan Pop DO Work Phone: noEllett Memorial HospitalWmikbrpxsk55-24-6361 10:02-0400Body mass index (BMI) [Ratio]25.39 kg/h9Sajzl Kiesha DO Work Phone: 1(943)954-[address] [place], [place] [address]Bbcmbeqnul80-34-6136 10:02-0400Body htmusx32.96 kgCorey Kiesha DO Work Phone: 1(612)[facility] [place], [place] [address]Jomhikfzdw62-67-0323 10:02-0400Diastolic blood cavtvzab73 mm[Hg]Nathan Kiesha DO Work Phone: 1(367)485-[address] [place], [place] [address]Zgzbquidzs26-48-4314 10:02-0400Systolic blood kekrzfzw812 mm[Hg]Nathan Kiesha DO Work Phone: 1(871)[facility] [place], [place] [address]Klmcvppqvn29-76-4703 10:55-0500Body mass index (BMI) [Ratio]28.17 kg/e0Ezdta Kiesha DO Work Phone: 1(924)[facility] [place], [place] [address]Kogcjujtxf13-02-0774 10:55-0500Body nvtjym58.85 kgCorey Kiesha DO Work Phone: 1(228)[facility] [place], [place] [address]Mvhtdteqjw37-05-6592 10:55-0500Diastolic blood oxfxbawz95 mm[Hg]Nathan Kiesha DO Work Phone: 1(816)[facility] [place], [place] [address]Ucvjsxaxqi45-46-3426 10:55-0500Systolic blood ewqwttwk662 mm[Hg]Nathan Kiesha DO Work Phone: 1(091)[facility] [place], [place] [address]Zggweuoqir19-85-1337 17:31-0400Body temperature 98.96 [degF][facility]10-18-2023 17:31-0400 Diastolic blood vgnulwjq95 mm[Hg][facility]10-18-2023 17:31-9873MPC4 99 %[facility]10-18-2023 17:31-0400Heart ocrr215 /minV[facility] L[facility]10-18-2023 17:31-0400 Respiratory rate16 /minV[facility]10-18-2023 17:31-0400 Systolic blood paxewgrc884 mm[Hg][facility] [place]06-06-2023 10:55-0400Body sfyctr806.5 cmErin Reaper 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 Work Phone: [phone] Meewvt58-95-5310 10:55-0400Body wkogxy76.86 kgErin Reaper 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 Work Phone: [phone] Eyirok15-30-7527 10:55-0400Diastolic blood nwakrdlw29 mm[Hg]Jihan Reaper 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 Work Phone: [phone] Xidhjx20-28-4609 10:55-0400Systolic blood wenplmaz573 mm[Hg]Jihan Reaper 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 Work Phone: [place] Qnxnbv42-96-1183 19:18-0500Diastolic blood yilyzmos04 mm[Hg][facility]03-08-2023 19:18-0500Heart rate98 /min[facility]03-08-2023 19:18-0500Nursing Progress Note ReasonOther: this RN discharged pt. pt verbalizes understanding and denies questiosn prior to discharge.[facility]03-08-2023 19:18-0500Respiratory rate16 /min[facility]03-08-2023 19:18-3936CuE0% (BldA) [Mass fraction]100 %[facility]03-08-2023 19:18-0500 Systolic blood mm[Hg][facility] 01-31-2023 18:00-0500Diastolic blood ncwjovcu80 mm[Hg][facility]03-08-2023 18:00-0500Heart qqkg374 /min[facility]03-08-2023 18:00-0500Mean blood ztoddksh849 mm[Hg][facility]03-08-2023 18:00-2866HhC1% (BldA) [Mass fraction]99 %[facility]03-08-2023 18:00-0500 Systolic blood bankryij206 mm[Hg][facility] 01-31-2023 17:00-0500Diastolic blood wejdawyw48 mm[Hg][facility]03-08-2023 17:00-0500Mean blood refnsujv264 mm[Hg][facility]03-08-2023 17:00-0500Systolic blood pressure 117 mm[Hg][facility]03-08-2023 16:38-0500Heart irst839 /min[facility]03-08-2023 16:38-0500Mean blood zmewxrtc772 mm[Hg][facility]03-08-2023 16:38-0500Respiratory rate18 /[facility] 01-31-2023 13:49-0500Body .88 [degF][facility]03-08-2023 13:49-0500Heart cljj742 /min[facility]02-04-2023 14:55-0500Body tamtmrsnbwy06.88 [degF][facility]02-04-2023 14:55-0500Diastolic blood ewiijueb27 mm[Hg][facility]02-04-2023 14:55-0500Heart rate84 /min[facility]02-04-2023 14:55-0500Mean blood agftbwnu021 mm[Hg][facility]02-04-2023 14:55-0500Respiratory rate20 /min[facility]02-04-2023 14:55-1243TiW2% (BldA) [Mass fraction]98 %[facility]02-04-2023 14:55-0500Systolic blood pressure 137 mm[Hg][facility]02-04-2023 14:35-0500Body zllyegbuiow38.88 [degF][facility]02-04-2023 14:35-0500Diastolic blood genbhjdy55 mm[Hg][facility]02-04-2023 14:35-0500Heart rate82 /min[facility]02-04-2023 14:35-0500Mean blood xwkefjqj36 mm[Hg][facility]02-04-2023 14:35-0500Respiratory rate16 /[facility]02-04-2023 14:35-2042HyI0% (BldA) [Mass fraction]97 %[facility]02-04-2023 14:35-0500Systolic blood efrnaqie449 mm[Hg][facility]02-04-2023 13:35-0500Body hpyipvivdhu37.88 [degF][facility]02-04-2023 13:35-0500Diastolic blood fnerhjay68 mm[Hg][facility]02-04-2023 13:35-0500Heart rate80 /[facility]02-04-2023 13:35-0500Mean blood ojhqzmaf21 mm[Hg] [facility]02-04-2023 13:35-0500Respiratory rate 17 /min[facility]02-04-2023 13:35-0957ZwV5% (BldA) [Mass fraction]96 %[facility]02-04-2023 13:35-0500Systolic blood mwgqcfyj921 mm[Hg][facility]02-04-2023 13:00-0500Respiratory rate12 /min[facility]02-04-2023 12:55-0500Respiratory rate9 /min[facility]02-04-2023 12:50-0500Respiratory rate10 /[facility]02-04-2023 08:15-0500Body rlytacbhusx29.24 [degF] [facility]02-04-2023 08:15-0500Heart oryl231 /min[facility]01-07-2023 13:41-0500Body fwcfvtmvtoo06.2 [degF]Kathe Ryder DO Work Phone: 1(519)206-[address] [place], [place] [address]Jyqplq85-53-8964 13:41-0500Diastolic blood emyqdyif88 mm[Hg]Kathe Ryder DO Work Phone: [facility]Hijnfv82-85-3449 13:41-0500Heart ozng659 /min Kathe Ryder DO Work Phone: 1([phone] HospitalPnfhhb19-56-2819 13:41-0500Respiratory rate18 /minKathe Ryder DO Work Phone: [facility] HospitalAiuenn90-51-4916 13:41-4738CfX1% (BldA) [Mass fraction]99 %Kathe Ryder DO Work Phone: [facility] HospitalZcdlsi86-00-6389 13:41-0500Systolic blood hbxckjbu465 mm[Hg]Kathe Ryder DO Work Phone: [facility] HospitalNjmasz10-79-9778 00:45-0500Body .5 cm Kathe Ryder DO Work Phone: [facility] HospitalVnqbaa92-49-6108 00:45-0500Body mass index (BMI) [Ratio]25.61 kg/h4BibnzqitjKathe Ryder DO Work Phone: [facility] HospitalExdgkm73-11-4103 00:45-0500Body .5 kg Kathe Ryder DO Work Phone: [facility] HospitalAxmwvf21-99-2885 22:26-0500Hourly Rounding Fredi KARASIK [address] [place], [place] [address]Comment on above:Result Comment: ensured that all pt belongings are sent with pt. pt has no questions or concerns. report given to EMS. pt stable and no s/s of distress. pt off unit to ldzagbje93-42-9489 22:00-0500Diastolic blood vzlurtqs12 mm[Hg]Fredi KARASIK [address] [place], [place] 5476801-02-2023 22:00-0500Heart ozyp019 /minGregory KARASIK [address] [place], [place] 5476801-02-2023 22:00-0500 Hourly RoundingGregory KARASIK [address] [place], [place] 5476801-02-2023 22:00-0500Mean blood jgdodagh681 mm[Hg]Fredi KARASIK [address] [place], [place] 5476801-02-2023 22:00-0500 Systolic blood fscwoddq619 mm[Hg]Fredi KARASIK [address] [place], [place] 5476801-02-2023 21:50-0500Blood Pressure LocationGregory KARASIK [address] [place], [place] 5476801-02-2023 21:50-0500 Diastolic blood tjryuwrb32 mm[Hg]Fredi KARASIK [address] [place], [place] 5476801-02-2023 21:50-0500Heart fsnx108 /minGregory KARASIK [address] [place], [place] 5476801-02-2023 21:50-0500 Hourly RoundingGregory KARASIK [facility]01-02-2023 21:50-0500Mean blood vgjmfsiv131 mm[Hg]Fredi SCHUMACHERASIK [address] [place], [place] 5476801-02-2023 21:50-0500 Respiratory rate18 /minFredi SCHUMACHERASIK [address] [place], [place] 5476801-02-2023 21:50-5879JcO2% (BldA) [Mass fraction]98 %Fredi SCHUMACHERASIK [address] [place], [place] 5476801-02-2023 21:50-0500 Systolic blood zippffwt239 mm[Hg]Fredi KARASIK [address] [place], [place] 5476801-02-2023 21:37-0500Blood Pressure LocationGregrosa ABREUK [address] [place], [place] 5476801-02-2023 21:37-0500 Diastolic blood drofysvs54 mm[Hg]Fredi SCHUMACHERASIK [address] [place], [place] 5476801-02-2023 21:37-0500Heart djsd986 /minFredi ABREUK [address] [place], [place] 5476801-02-2023 21:37-0500Mean blood qnvevrkt461 mm[Hg]Fredi SCHUMACHERASIK [address] [place], [place] 5476801-02-2023 21:37-3649SgN3% (BldA) [Mass fraction]97 %Fredi SCHUMACHERASIK [address] [place], [place] 5476801-02-2023 21:37-0500 Systolic blood mm[Hg]Fredi KARASIK [address] [place], [place] 5476801-02-2023 21:30-0500Blood Pressure LocationFredi SCHUMACHERASIK [address] [place], [place] 5476801-02-2023 21:30-0500Body tmkokpnqeiq86.6 [degF]Fredi DORSEY [facility]01-02-2023 19:00-0500Body tawdjakfedu40.24 [degF]Fredi DORSEY [facility]01-02-2023 17:15-0500Body lhrlrkndoxe19.06 [degF]Fredi DORSEY [facility]01-02-2023 14:02-0500Heart rate99 /minFredi DORSEY [facility]08-19-2022 07:00-0400Body gpcepcvedfm88.6 [degF]Kaylinn Dokken [address]08-19-2022 07:00-0400 Diastolic blood ehhjbsyu91 mm[Hg]Kaylinn Dokken [address]08-19-2022 07:00-0400Heart rate80 /minKaylinn Dokken [address] [place], [place] 4822808-19-2022 07:00-0400Mean blood mm[Hg]Kaylinn Dokken [address] [place], [place] 4822808-19-2022 07:00-0400 Respiratory rate17 /minKaylinn Dokken [address]08-19-2022 07:00-0400 Systolic blood bqnimncl720 mm[Hg]Kaylinn Dokken [address] [place], [place] 4822808-19-2022 06:07-0400Body jaircytrvln58.24 [degF]Kaylinn Dokken [address]08-19-2022 06:07-0400 Diastolic blood sbwrrujl49 mm[Hg]Kaylinn Dokken [address] [place], [place] 4822808-19-2022 06:07-0400Heart rate90 /minCharlotteylinn Dokken [address]08-19-2022 06:07-0400 Respiratory rate18 /minCharlotteylinn Dokken [address] [place], [place] 4822808-19-2022 06:07-8429RqQ2% (BldA) [Mass fraction]100 %Kumar Villagomez [address]08-19-2022 06:07-0400 Systolic blood xevvqnmj034 mm[Hg]Beatrisn Yulyen [address] [place], [place] 4822808-19-2022 05:30-0400 Hourly RoundingCorey KIESHA [address] [place], [place] [address]Comment on above:Result Comment: Pt discharged per physician orders. Pt ambulates off unit with a steady ahmu06-21-0066 05:15-0400Diastolic blood wxlaybti14 mm[Hg]Nathan KIESHA [address] [place], [place] 5476808-19-2022 05:15-0400Heart kosb999 /minCorey KIESHA [address] [place], [place] 5476808-19-2022 05:15-0400 Hourly RoundingCorey KIESHA [address] [place], [place] 5476808-19-2022 05:15-0400Mean blood cqwfopez76 mm[Hg]Nathan KIEHSA [address] [place], [place] 5476808-19-2022 05:15-0400 Respiratory rate18 /minCorey KIESHA [address] [place], [place] 5476808-19-2022 05:15-0400 Systolic blood whmjcotq024 mm[Hg]Nathan KIESHA [address] [place], [place] 5476805-24-2022 11:00-0400Body otfvhc643.02 cmCameron Edward Other nort [employer] Other 05-24-2022 11:00-0400Body mass index (BMI) [Ratio] 23.03 kg/i5Dcxgqlp Reksofttty Other [facility] [employer] Other 05-24-2022 11:00-0400Body bfnqeo83.97 kgCamerojunior Loratty Other [facility] [employer] Other 03-17-2022 11:41-0400Body soptwb024.48 cmMegan Billow DO Work Phone: [phone]-KDXMI-[address] Work Phone: [phone] 11:41-0400Body mass index (BMI) [Ratio] 24.51 kg/f9Cwjax Billow DO Work Phone: WQ-FABYH-[address] Work Phone: [phone] 11:41-0400Body surface area Derived from formula1.61 p3Hpzlr Billow DO Work Phone: WR-SSHDF-[address] Work Phone: [phone] 11:41-0400Body rcdaie06.78 kgMegan Billow DO Work Phone: XE-KLQCV-[address] Work Phone: 1([phone] 11:41-0400Diastolic blood bibqtwzk15 mm[Hg] Charlene Billow DO Work Phone: IE-DSMEU-[address] Work Phone: [phone] 11:41-0400Systolic blood pbqbfowj251 mm[Hg] Charlene Billow DO Work Phone: OZ-PUITJ[facility] [address] Work Phone: [phone] 11:41-30154 1Megan Billow DO Work Phone: VZ-WCYBS[facility] [address] Work Phone: Comment on above:FUFGJGUWCqyfNtqie17-77-6934 14:53-0400Body yivbtz913.48 cmMegan Billow DO Work Phone: ZV-XGERE[facility] [address] Work Phone: [phone] 14:53-0400Body mass index (BMI) [Ratio] 21.77 kg/v1Vtgtw Billow DO Work Phone: WS-ZXALC[facility] [address] Work Phone: [phone] 14:53-0400Body surface area Derived from formula1.53 k0Qzjbj Billow DO Work Phone: GU-OZTWX[facility] [address] Work Phone: [phone] 14:53-0400Body feiahg22.98 kgMegan Billow DO Work Phone: MM-QLQOJ[facility] [address] Work Phone: [phone] 14:53-0400Diastolic blood fmdzufmw50 mm[Hg] Charlene Billow DO Work Phone: HH-QRZRP[facility] [address] Work Phone: [phone] 14:53-0400Heart jrby194 /minMegan Billow DO Work Phone: YX-PRPMZ[facility] [address] Work Phone: [phone] 14:53-0400Systolic blood cfvjyjtx416 mm[Hg] Charlene Billow DO Work Phone: EC-EHTFI[facility] [address] Work Phone: [phone] 14:53-19673 1Megan Billow DO Work Phone: VD-HFVZZ[facility] [address] Work Phone: Comment on above:GRAVPARAPainScale Encounters Encounter DateEncounter [facility] ProviderFacilityStart: 10-06-2025 End: 30-10-5743Aloebl outpatient visit 25 minutesColleen E Matthias CLAYTON Work Phone: [phone]-Dx[facility] at [facility] Comment on above:Insulin controlled gestational diabetes mellitus (GDM) in third trimester (Primary Dx); Essential hypertension affecting in third trimesterStart: 10-06-2025 End: 39-04-3747htuovjviytENJJCPW E MATTHIASProMedica University Hospitals St[facility] John Medical Centertart: 10-05-2025 End: 98-76-3838Cewodaith encounterAnjana Davalos RNMaternal- [facility] at [facility] Ohiotart: 10-03-2025 End: 45-84-1663Cfvjgnuus Result EncounterSteph Keane NP Work Phone: noms External Department UnsolicitedStart: 10-03-2025 End: 22-79-8632Twpsjwdcy Result EncounterSteph Keane NP Work Phone: noms External Department UnsolicitedStart: 09-30-2025 End: 07-77-5469Dnmrztwb flow sheetCorey Kiesha DO Work Phone: noms Patti OBGYNComment on above:Third trimester ([facility]); 31 weeks gestation of ([facility]); Pre-eclampsia in third trimester ([facility])Start: 09-30-2025 End: 57-07-7232jatfcxmzqsCOBPK FAZIONot AvailableStart: 09-30-2025 End: 78-97-0269Xrjevc flowsheetCorey Kiesha DO Work Phone: noMS [facility] OBGYNStart: 09-30-2025 End: 55-95-5607Iwiptq flowsheetCorey Kiesha DO Work Phone: NOMS Patti OBGYNStart: 09-28-2025 End: 84-03-3500Febjzu OnlyChivo Springer PA-C Work Phone: [phone]-Dzget Medicine at [facility] Comment on above:Essential hypertension affecting in third trimester Start: 09-26-2025 End: 40-08-8842Ctzxlamad Result EncounterSteph Keane NP Work Phone: noms External Department UnsolicitedStart: 09-26-2025 End: 59-68-3293Fvrpldicy Result EncounterSteph Keane NP Work Phone: noms External Department UnsolicitedStart: 09-21-2025 End: 37-35-7473pvjohnoakjHxbjelp E Lavoy PA-C Work Phone: [phone]-Wpzyd Medicine at [facility] Comment on above:Insulin controlled gestational diabetes mellitus (GDM) in third trimester (Primary Dx); Essential hypertension affecting in third trimesterStart: 09-21-2025 End: 19-07-0539Votlrvfxf encounterVerito EDOUARD Work Phone: [phone]-Nllni Medicine at [facility] Start: 09-19-2025 End: 23-70-1174Avjmajvzp Result EncounterSteph Keane NP Work Phone: noms External Department UnsolicitedStart: 09-19-2025 End: 33-12-7114Hwpwbwith Result EncounterSteph Keane NP Work Phone: noms External Department UnsolicitedStart: 09-17-2025 End: 13-23-1006Vlqpnn Breanna CAGE Work Phone: [phone]-Klzpk Medicine at [facility] Comment on above:Essential hypertension affecting in third trimester Start: 09-16-2025 End: 74-98-6722poejvenrbsPWSGL FAZIONot AvailableStart: 09-16-2025 End: 85-37-2378Pitablgc flow sheetCorey Kiesha DO Work Phone: noms Patti OBGYNComment on above:29 weeks gestation of ([facility]); Third trimester ([facility]); Hypertension affecting , antepartum ([facility]); Gestational diabetes mellitus (GDM), antepartum, gestational diabetes method of control unspecified([facility])Start: 09-16-2025 End: 59-21-5754Zbkdfn flowsheetCorey Kiesha DO Work Phone: NOMS [facility] OBGYNStart: 09-16-2025 End: 60-63-7668Wughbv flowsheetCorey Kiesha DO Work Phone: NOMS [facility] OBGYNStart: 09-16-2025 End: 16-09-7440Crljqamkk Nirmal Harris Maternal- Medicine at [facility] Ohiotart: 09-15-2025 End: 54-53-7179AzbagmMika Springer PA-C Work Phone: [phone]-Opjja Medicine at [facility] Comment on above:Essential hypertension affecting in third trimester Start: 09-10-2025 End: 67-12-2833Qolskt outpatient visit 25 minutesMadhuri Monroy MD Work Phone: [facility] [place] on [place]: 28 weeks gestation of (Primary Dx); Insulin controlled gestational diabetes mellitus (GDM) in second trimester; Essential hypertension affecting in third trimesterStart: 09-10-2025 End: 50-10-6117biyifghmcsCOACMLPD P [facility] Start: 09-04-2025 End: 50-01-3848Nnrrzy consultation new/estab patient 60 Annalee Denise MD Work Phone: [phone]-Uryzu Medicine at [facility] Comment on above:Diet controlled gestational diabetes mellitus (GDM) in second trimester (Primary Dx); Essential hypertension affecting in third trimesterStart: 09-04-2025 End: 95-81-0908qrnrndiwfqBFCTGRNona [facility] Hospitaltart: 09-03-2025 End: 09-57-8845Vxopzkfk flow sheetSteph Keane LIFE SKILLS INSTRUCTOR Work Phone: NOGM Patti OBGYNComment on above:Hypertension affecting , antepartum ([facility]-HCC) (Primary Dx); 27 weeks gestation of ([facility]); Second trimester ([facility])Start: 09-03-2025 End: 24-51-3679tcuqewpgomDYJKHWSE EBERLYNot AvailableStart: 09-03-2025 End: 72-73-7016Qnembe flowsheetSteph Keane LIFE SKILLS INSTRUCTOR Work Phone: NOMS [facility] OBGYNStart: 09-03-2025 End: 35-92-9751Olbdlndwa Result EncounterCorey Kiesha DO Work Phone: noms External Department UnsolicitedStart: 09-03-2025 End: 93-87-7973Bftdfhlem Result EncounterCorey Kiesha DO Work Phone: noms External Department UnsolicitedStart: 09-01-2025 End: 86-57-2195Hhyrgpxuz encounterCha Harris RNMaternal- Medicine at [facility] Ohiotart: 08-29-2025 End: 00-68-0013Wpbtnnibj Result EncounterSteph Keane NP Work Phone: noms External Department UnsolicitedStart: 08-29-2025 End: 02-40-6589Zckuftemp Result EncounterSteph Keane NP Work Phone: noms External Department UnsolicitedStart: 08-27-2025 End: 99-37-3051qkfjefrdviRYONJQJN EBERLYNot AvailableStart: 08-27-2025 End: 60-53-2330Woatkabu flow sheetSteph Keane LIFE SKILLS INSTRUCTOR Work Phone: NOMS Patti OBGYNComment on above:26 weeks gestation of ([facility]-HCC); Second trimester ([facility]-HCC); induced hypertension, antepartum ([facility]HS-HCC); Gestational diabetes mellitus (GDM) in second trimester, gestational diabetes method of control unspecified ([facility])Start: 08-27-2025 End: 93-09-3888Cmvgrx flowsheetSteph Elsa LIFE SKILLS INSTRUCTOR Work Phone: NOZL Patti OBGYNStart: 08-27-2025 End: 70-86-6852Opomsn flowsheetSteph Keane LIFE SKILLS INSTRUCTOR Work Phone: NOLM Patti OBGYNStart: 08-27-2025 End: 73-34-0462Ilofmzomb Result EncounterSteph Keane LIFE SKILLS INSTRUCTOR Work Phone: noms External Department UnsolicitedStart: 08-25-2025 End: 45-38-0312Xykvsawwo Result EncounterGeneric External Data ProviderNOMS External Department UnsolicitedStart: 08-25-2025 End: 31-13-7354Vrqpadjri Result EncounterGeneric External Data ProviderNOMS External Department UnsolicitedStart: 08-24-2025 End: 95-89-4684npltntmqkmAjeeyq M Frey RN Work Phone: [phone]-Afzsn Medicine at [facility] Comment on above:Gestational diabetes mellitus (GDM) in second trimester, gestational diabetes method of control unspecifiedStart: 08-21-2025 End: 06-67-9697Gupwx abstractingScanning Provider ExternalMaternal- Medicine at [facility] Ohiotart: 08-18-2025 End: 60-03-1827Ykixj Aura Monroy MD Work Phone: [phone]-Gvdre Medicine at [facility] Start: 08-15-2025 End: 60-34-7517yxnqncpmuaJHEPADPJ EBERLYFacility:FTMCStart: 08-12-2025 End: 24-07-6445Nbtnxshk flow sheetCorey Kiesha DO Work Phone: noms [facility] OBGYNComment on above:24 weeks gestation of ([facility]); Second trimester ([facility]); Elevated glucose tolerance testStart: 08-12-2025 End: 86-01-6905cqtmvmgzstBXBIZ FAZIONot AvailableStart: 08-12-2025 End: 74-51-5087obcrfrenxuLwbmq Bryant MANISHAOFacility:FTMCStart: 08-01-2025 End: 17-63-4412szhxhbnhbpZ KENNETH BELTRANFacility:FTMCStart: 07-30-2025 End: 32-59-5925Itrogie encounter statusGemartha Hurtado Ruby DO Work Phone: [facility] Work Phone: Start: 07-30-2025 End: 30-29-9329Ndeovlzb preventive med est patient 18-39 yrsGeorsherita Hurtado Charlottecarol DO Work Phone: noms [facility] 230Comment on above: Wellness examination (Primary Dx); Hypertension, unspecified type ; Lipid screeningStart: 07-30-2025 End: 19-64-7993yhpzoednjwYHMUII R KAFTANNot AvailableStart: 07-30-2025 End: 76-67-7079Kidqhc flowsheetEliceo Hurtado Ruby DO Work Phone: noms [facility] 230Start: 07-30-2025 End: 69-79-0585Nurjvg flowsreynoldEliceo Hurtado Ruby DO Work Phone: noms [facility] 230Start: 07-15-2025 End: 18-49-9059Ibyqqrwn flow sheetCorey Kiesha DO Work Phone: NOYR [facility] OBGYNComment on above:20 weeks gestation of ([facility]); Second trimester ([facility]); Diabetes mellitus screeningStart: 07-15-2025 End: 17-43-5854rlrjpjwyoqQBYJT FAZIONot AvailableStart: 07-15-2025 End: 35-75-9885Smjepcrsh Result EncounterCorey Kiesha DO Work Phone: NOWN External Department UnsolicitedStart: 07-15-2025 End: 90-74-9077Tsvahjbui Result EncounterCorey Kiesha DO Work Phone: NOMS External Department UnsolicitedStart: 06-22-2025 End: 63-18-4927Qxbxkbhy flow sheetCorey Kiesha DO Work Phone: NOQH [facility] OBGYNComment on above:Sinusitis, unspecified chronicity, unspecified location (Primary Dx); Second trimester ([facility]); 17 weeks gestation of ([facility]); Screening, , for anatomic survey ([facility])Start: 06-22-2025 End: 47-90-2752ssqhhxcrsdABOWR FAZIONot AvailableStart: 06-22-2025 End: 55-13-1862Rljvqe flowsheetCorey Kiesha DO Work Phone: NO [facility] OBGYNStart: 06-22-2025 End: 78-41-8197Ywhrfp flowsheetCorey Kiesha DO Work Phone: NODD Patti OBGYNStart: 06-22-2025 End: 62-19-0218Ufbbmfcn Result EncounterCorey Kiesha DO Work Phone: NOIJ External Department UnsolicitedStart: 05-25-2025 End: 44-12-5760ggfpbyzbsxBYIZB FAZIONot AvailableStart: 05-25-2025 End: 41-01-4649Dlpqqkls flow sheetCorey Kiesha DO Work Phone: NOVM BCP OBComment on above:Nonintractable episodic headache, unspecified headache type (Primary Dx); Second trimester ([facility]); 13 weeks gestation of ([facility])Start: 05-25-2025 End: 30-37-7015Ewqcur flowsheetCorey Kiesha DO Work Phone: NOMS BCP OBStart: 05-25-2025 End: 87-73-6325Ekufeq flowsheetCorey Kiesha DO Work Phone: NOMS BCP OBStart: 05-04-2025 End: 95-40-4906Kkxiwdwmm Result EncounterCorey Kiesha DO Work Phone: NOMS External Department UnsolicitedStart: 05-04-2025 End: 66-13-4836Yervhovbq Result EncounterCorey Kiesha DO Work Phone: noms External Department UnsolicitedStart: 05-01-2025 End: 66-46-7171Oqpfwoeug Result EncounterCorey Kiesha DO Work Phone: noMS External Department UnsolicitedStart: 05-01-2025 End: 80-19-6055Gofpnjgbs Result EncounterCorey Kiesha DO Work Phone: noms External Department UnsolicitedStart: 05-01-2025 End: 59-71-9512xovqcuujzrRRKFND Jose Angel AvailableStart: 05-01-2025 End: 01-75-6924Stczit outpatient visit 5 minutesNoms Bcp Ob Kiesha NurseNOMS BCP OBComment on above:GA: 4i6sTsjma: 03-13-2025 End: 14-45-5735luqshloielVojof R FAZIOFacility:FTMCStart: 03-13-2025 End: 40-77-3813Ixylhzb encounter procedureCorey R KIESHA [facility] Start: 02-02-2025 End: 39-90-5119Fboewsh encounter procedureDenny Rodríguez MD Work Phone: [facility] Work Phone: Start: 02-02-2025 End: 85-26-5501puqueuebmeRmdqs Baxter MD Work Phone: [facility] Work Phone: Start: 01-22-2025 End: 68-00-5515dgjzacibfmKrrfv R FAZIOFacility:FTMCStart: 01-22-2025 End: 45-12-3120Afdjbcm encounter procedureCorey R KIESHA [facility] Start: 01-19-2025 End: 23-85-1204Pzgget outpatient visit 15 minutesCorey Kiesha DO Work Phone: noms BCP OBComment on above:Pain in female genitalia on intercourse; EndometriosisStart: 01-19-2025 End: 67-27-9776hnbybuunplZSHTZ FAZIONot AvailableStart: 01-19-2025 End: 17-60-3324Fjwanm flowsheetCorey Kiesha DO Work Phone: NOMS BCP OBStart: 01-19-2025 End: 23-51-7733Vywepg flowsheetCorey Kiesha DO Work Phone: NOMS BCP OBStart: 12-30-2024 End: 01-45-0841fylftsrxnlFGUWZY R TREYANNot AvailableStart: 12-30-2024 End: 94-94-6020Aoyeri outpatient visit 15 minutesGeorge R Charlottecarol DO Work Phone: NOJN [facility] 230Comment on above:Hypertension, unspecified type (CMS/HCC) (Primary Dx); Paroxysmal tachycardia, unspecified (CMS/HCC); Chronic right shoulder pain; Scapular dyskinesisStart: 08-18-2024 End: 97-43-4893Ailwht flowsheetCorey Kiesha DO Work Phone: noMS BCP OBStart: 08-18-2024 End: 21-80-0362Dkumhi flowsheetCorey Kiesha DO Work Phone: noMS BCP OBStart: 08-18-2024 End: 94-91-2566Zmsgcghij Result EncounterCorey Kiesha DO Work Phone: noms External Department UnsolicitedStart: 08-18-2024 End: 41-57-8641Chhdqad encounter procedureCorey Kiesha DO Work Phone: [facility] Work Phone: Start: 08-18-2024 End: 59-87-3786Ekdziqtf preventive med est patient 18-39 yrsCorey Kiesha DO Work Phone: NOMS BCP OBComment on above:Well woman exam with routine gynecological examStart: 07-22-2024 End: 29-62-6546Zouccr flowsheetCorey Kiesha DO Work Phone: NOMS BCP OBStart: 07-22-2024 End: 47-24-2296Jsruzv flowsheetCorey Kiesha DO Work Phone: NOJX BCP OBStart: 07-22-2024 End: 17-15-6285Yfpjun outpatient visit 15 minutesCorey Kiesha DO Work Phone: NOMS BCP OBComment on above:Dysmenorrhea, unspecified Start: 27-69-0766Vxvwiaxuv encounterMegan Billow DO Work Phone: [facility]art: 41-84-4214Sbvejaqap encounterMegan Billow DO Work Phone: [facility] CampusComment on above:Surgery CancelledStart: 02-13-2024 End: 53-01-7370Elwdndmhj Result EncounterCorey Kiesha DO Work Phone: NOMW External Department UnsolicitedStart: 02-13-2024 End: 92-11-0054Bnsarjqxq Result EncounterCorey Kiesha DO Work Phone: noms External Department UnsolicitedStart: 01-15-2024 End: 57-63-3425Oahjcaxcc Result EncounterCorey Kiesha DO Work Phone: noms External Department UnsolicitedStart: 01-15-2024 End: 61-22-4545Vatsrxasu Result EncounterCorey Kiesha DO Work Phone: noms External Department UnsolicitedStart: 01-10-2024 End: 52-70-7622Uqlhqr outpatient visit 15 minutesCorey Kiesha DO Work Phone: NOMS BCP OBComment on above:Menorrhagia with regular cycle; Pelvic pain in female; Uses controlStart: 44-42-3773XljdpoZfedb Billow DO Work Phone: [facility] HospitalComment on above:Refill Request Start: 28-89-9553clgnayvpelHceuj Billow DO Work Phone: Obstetrics/GynecologyComment on above:painStart: 12-10-2023 End: 24-77-0412kutuaycrnwLXLAP BILLOWFacility:[facility] Administrationtart: 95-10-3960itshkjzuqtYqfpx Billow DO Work Phone: REM PIRES MCStart: 92-98-2809Ebybwez encounter procedureMegan Billow DO Work Phone: Obstetrics/GynecologyComment on above:office visit Start: 09-12-2023 End: 37-21-6994Adolecvvt department patient Berny Loco [facility] Start: 59-29-1306Hkdgqq pelvic examinationMegan Billow DO Work Phone: Obstetrics/GynecologyComment on above:Pelvic pain in female (Primary Dx)Start: 81-27-5326xoidbeyuukZlifk Billow DO Work Phone: Obstetrics/GynecologyComment on above:painful periods Start: 08-24-2023 End: 40-30-5964Nhubjg pelvic examinationErin Vicker 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 Work Phone: GynecologyComment on above:High-tone pelvic floor dysfunction (Primary Dx); Chronic pelvic pain in femaleStart: 08-24-2023 End: 69-63-4202Rukypbutlvrb consultation with Kelton Downs APRN.PAINTER RAILROAD CAR Work Phone: [facility] MAINStart: 08-24-2023 End: 19-34-4924sjsosnjvyaMDXG REAPERFacility:[facility] HospitalStart: 23-84-3631jfqrczclehNbxgs Billow DO Work Phone: Obstetrics/GynecologyComment on above:painful period Start: 80-33-3965Wjmgprtic encounterMegan Billow DO Work Phone: GynecologyComment on above:Insurance Authorization (Orilissa)Start: 07-16-2023 End: 45-96-2676uyijyzudplXTJCN BILLOWFacility:[facility]tart: 06-12-2023 End: 42-92-6810oaikqiakgkQPYDM BILLOWFacility:[facility] Administrationtart: 06-12-2023 End: 07-35-0554Wfnrncefas hospital visit by physicianandra [facility] Suki (I-Stat/1.5t) RadiologyComment on above:Pelvic and perineal pain [R10.2]Start: 05-17-2023 End: 92-08-2798Litdsu pelvic examinationMegan Billow DO Work Phone: Obstetrics/GynecologyComment on above:Endometriosis (Primary Dx); Pelvic and perineal painStart: 05-17-2023 End: 71-34-7776Ccfpqfatkpga consultation with kikaCharlene Rodriguez DO Work Phone: Dre [facility]ITALtart: 05-17-2023 End: 91-90-5929feqwkuumyvNRLFD ALAN BAXTERFacility:[facility] Start: 91-74-8945Tgnqspfqe encounterMekevin Billfanny DO Work Phone: GynecologyComment on above:Vaginal BleedingStart: 05-01-2023 End: 03-29-5525jaxhxsixumRWYISYang Stanleycility:[facility] Start: 05-01-2023 End: 09-04-1777Wwcppfk encounter Lisa Downs APRN.PAINTER RAILROAD CAR Work Phone: GynecologyComment on above:Chronic pelvic pain in female (Primary Dx); Constipation, unspecified constipation type; High-tone pelvic floor dysfunction; Diastasis of rectus abdominis; Dysmenorrhea; Other specified dyspareuniaStart: 68-99-7938rnacnokpijIpucc Billow DO Work Phone: Obstetrics/GynecologyComment on above:painfulStart: 01-31-2023 End: 01-25-0456Tijmuodbi department patient visitAstrit Phuc [facility] Start: 12-30-2022 End: 32-82-8296Enfpwbh encounter procedureAstrit Phuc [facility] Start: 12-05-2022 End: 05-33-9689yxvegcyhdxUNUQProvidence Holy Family Hospital SHSStart: 12-05-2022 End: 37-81-6475Sflama outpatient visit 15 minutesGin Leonorsrinath DAY Work Phone: [facility] HospitalComment on above:Pre- eclampsia, severe, delivered (Primary Dx)Start: 11-28-2022 End: 78-15-1120Yvkhppcwco and management of inpatientHCA Florida Fort Walton-Destin HospitalStart: 11-28-2022 End: 81-31-7606Votkmezqiu and management of inpatientCommunity Hospital North Work Phone: [facility] [address] POSTPARTUMComment on above:Preeclampsia, severe, third trimester (Primary Dx)Start: 11-28-2022 End: 53-66-8313Qkx-admission assessmentGregrosa DORSEY [facility] Start: 11-27-2022 End: 27-04-3025BZ TriageGregrosa DORSEY [facility] Start: 07-14-2022 End: 18-40-5698Mskqozwdg department patient visitCharlotteshayjunior Villagomez [facility] Start: 07-14-2022 End: 82-67-3832PL TriageNathan POP [facility] Start: 04-25-2022 End: 58-73-6050Uaproez encounter procedureCAMERON DITTY [facility] Start: 04-18-2022 End: 42-88-2896jmfxygtutuTntuzxs Ditty Other [employer] Other Start: 52-62-8154Gpmwlby encounter procedureCamdorene CarrilloyFPG GastroenterologyStart: 84-44-4386Wdmugq outpatient visit 15 minutes Charlene Rodriguez DO Work Phone: [phone]-FIIIH-[address] Work Phone: Start: 09-29-2021 End: 77-11-6146wtkhmqwmtwSFALQ ROWENA [facility]pe[facility] HospitalStart: 09-29-2021 End: 25-89-4577hdanxjtcibQQWXF ROWENASelect Medical Specialty [facility] HospitalStart: 38-06-6126SLJUOIqwko Billow DO Work Phone: [phone]-KCUIZ-[address] Work Phone: Start: 99-57-1337SQYZRBGEHB, Provider: Charlene Rodriguez, Status: Pen, Time: 2:45 Ina Chau MD Work Phone: [phone]-Heqqrhp-[place] Work Phone: Start: 09-72-0108Yxykr Oswaldo Chau MD Work Phone: [phone]-Mzetlys-[place] Work Phone: Procedures DateProcedureProcedure DetailPerforming ClinicianStart: 09-74-5788ON OB BPP W NON-STRESSKristina Elsa LIFE SKILLS INSTRUCTOR Work Phone: Start: 83-70-5765Snqhw dip stick/tablet rgnt non-auto w/o micrscpCorey Kiesha DO Work Phone: Start: 13-54-5351CA OB BPP W NON-STRESSKristina Elsa LIFE SKILLS INSTRUCTOR Work Phone: Start: 70-03-0155VK OB BPP W NON-STRESSKristina Elsa LIFE SKILLS INSTRUCTOR Work Phone: Start: 34-29-7071Ypmkq dip stick/tablet rgnt non-auto w/o micrscpCorey Kiesha DO Work Phone: Start: 31-38-8545GKH BUNCorey Kiesha DO Work Phone: Start: 11-79-8407HZF URIC ACIDCorey Kiesha DO Work Phone: Start: 28-53-2361YWU ALTCorey Kiesha DO Work Phone: Start: 19-50-8426LKJ ASTCorey Kiesha DO Work Phone: Start: 03-85-1967KYS CREATININECorey Kiesha DO Work Phone: Start: 46-88-9551RFD URINE T PROTEIN CREAT RATIOCorey Kiesha DO Work Phone: Start: 91-80-5122Coafv dip stick/tablet rgnt non-auto w/o micrscpKristina Elsa LIFE SKILLS INSTRUCTOR Work Phone: Start: 83-83-6049WZW TOTAL PROTEIN 24 HOUR URINE Generic External Data ProviderStart: 27-78-2188KD OB BPP W NON-STRESS Steph Elsa LIFE SKILLS INSTRUCTOR Work Phone: Start: 93-64-1370UZF URINE T PROTEIN CREAT RATIO Generic External Data ProviderStart: 73-63-8487AMQ CBC WITH AUTO DIFFGeneric External Data ProviderStart: 28-31-5485Zyyxh dip stick/tablet rgnt non-auto w/o micrscpKristina Elsa LIFE SKILLS INSTRUCTOR Work Phone: Start: 82-97-4833Sdnfabtn identified in Urine by CultureGeneric External Data ProviderStart: 88-65-9825Mrctblw quantitative blood xcpt reagent stripNot In System Ref ProvStart: 30-98-1097QWPVPU HOUR GLUCOSE TOLERANCE 100 GM LOADNot In System Ref ProvStart: 67-51-5280Bcfij dip stick/tablet rgnt non-auto w/o micrscpCorey Kiesha DO Work Phone: Start: 48-44-6577DNS 1H POST 50G LOADNot In System Ref ProvStart: 04-16-5014LPU, SERUM, OPEN SPINA BIFIDACorey Kiesha DO Work Phone: Start: 36-53-7568Wecfy dip stick/tablet rgnt non-auto w/o micrscpCorey Kiesha DO Work Phone: Start: 97-76-6808MTKFAGYWI VAGINITIS (HTRX)Nathan Kiesha DO Work Phone: Start: 59-35-0015Zisfn dip stick/tablet rgnt non-auto w/o micrscpCorey Kiesha DO Work Phone: Start: 61-83-5997Zoldb dip stick/tablet rgnt non-auto w/o micrscpCorey Kiesha DO Work Phone: Start: 08-25-6681Pmdmnlat screenMadhuri Monroy MD Work Phone: Start: 33-78-1231Dbrb scrn 1+ class nonchromoNot In System Ref ProvStart: 06-92-0590Xnytyzqcrj glycosylated s5lBqyil R Kiesha DO Work Phone: Start: 81-03-8101Bxpnpqrvs c antibodyNot In System Ref ProvStart: 94-78-3834GZR 1&2 AB/AG SCREEN (P24 AG)Not In System Ref ProvStart: 91-49-3007Tytq ia hepatitis b surface antigenNot In System Ref ProvStart: 32-04-1906WGFQ AND SCREENNot In System Ref ProvStart: 03-53-8855DUD TESTCorey Kiesha DO Work Phone: Start: 25-06-3926Ikxfc dip stick/tablet rgnt non-auto w/o micrscpCorey Kiesha DO Work Phone: Start: 70-56-1370LQ OB TRANSVAGINALCorey Kiesha DO Work Phone: Start: 02-10-4246KOA,APTIMA HPV,AGE GDLNCorey Kiesha DO Work Phone: Start: 20-72-6509Buqtzqqracr observation [Identifier] in Cervix by Cyto stainCorey Kiesha DO Work Phone: Start: 10-41-5613VGC 12-LEADCorey Kiesha DO Work Phone: Start: 92-08-2581PQ PELVIS W/ TRANSVAGINALCorey Kiesha DO Work Phone: Start: 53-21-8172Dctr cerv/vag auto thin layer prep mnl screenCorey Kiesha DO Work Phone: Start: 05-87-1003Boj pelvis w/o & w/contrast material Charlene Billow DO Work Phone: Start: 69-61-6933Mwopl count platelet automatedMichael O'Cormier SPEED READING TEACHER - HEALTH CARE AIDE Work Phone: Start: 03-87-8120Gfjhv count platelet automatedCassie Constantino MD Work Phone: Start: 33-29-3677Dwsgn streptococcus group b amplified probe tqCassie Constantino MD Work Phone: Start: 32-64-1898TUI and Rh group [Type] in Blood by Confirmatory Carmine Constantino MD Work Phone: Start: 14-59-6855Arugi typing serologic Cait Constantino MD Work Phone: Start: 59-92-2808Qjrkdjzlldyxu metabolic panelCassie Constantino MD Work Phone: Start: 19-20-7865Ciluwxbp hiv-1&hiv-2 single result Megadyne [id number]: 72-24-2455Vjcs ia hepatitis b surface antigenMegaalexis [id number]: 05-74-3717QdeqhsvzzfXVIUTXW EDWARD Start: 08-30-2020 End: 13-74-9864Gsqhubel screenComment on above:Performed By: #### T+S #### [facility] [address] [place], [place] [address]Itweb Comment: TEST TYPE + SCREEN WAS CANCELLED, 08/30/2020 13:37 JOP.Performed By: #### T+S #### [facility] [address] [place], [place] [address]Ivebj: 83-59-4290QDYFJ SHOULDER OPEN DISTAL CLAVICLE EXCISION 1CAMERON LOVEBaileyu Comment on above:RIGHT SHOULDER OPEN DISTAL CLAVICLE EXCISIONRIGHT SHOULDER OPEN DISTAL CLAVICLE EXCISIONAppendectomyCAMERON LOVEBaileyu betamethasone (substance)Fredi WILLIAN comment on above:Dose #1: 11/27/22ColonoscopyCAMERON EDWARD Endoscope, device (physical object)[place] LaparoscopyTeri Chau MD Work Phone: Plan of Treatment DateCare ActivityDetailAuthorStart: [id number] Vaccines (1 of 2)Zoster Vaccines (1 of 2)[facility] HealthStart: [id number] for malignant neoplasm of cervixNOMS HealthcareStart: 22-14-2556Izcblyuer for malignant neoplasm of cervixPap SmearNOMS HealthcareStart: 69-84-4720Egsuu BMI ScreeningAdult BMI ScreeningProOhiohealth Arthur G.[facility], Cancer Centerca Health SystemStart: 93-60-7714Iocwela ScreeningTobacco ScreeningProOhiohealth Arthur G.[facility] Centerca Health SystemStart: 46-39-2574Taywl BMI ScreeningAdult BMI ScreeningProOhiohealth Arthur G.H. Bing, Md, Cancer Centerca Health SystemStart: 26-12-3923Wptfn BMI ScreeningAdult BMI ScreeningProMedica Health SystemStart: 11-03-2025 End: 79-26-8945Deuarms encounter /09/2025 2:30 PM EST Office Visit Maternal- Medicine at [facility] [address] [place] [address] Chivo Springre PA-C [address] [facility] [address] [address] Maternal- Medicine at [facility] Ohiotart: 10-14-2025 End: 64-56-3675Adspukc encounter svlcwpzwy47/19/2025 3:30 PM EST Routine NOMS Patti YOUNGN [address] [place], [id number] Nathan Pop DO [address] [facility] [place] [address] NOMShalonda IYERGYNStart: 10-08-2025 End: 98-68-8290Wppbamy encounter reklgjbmm21/13/2025 8:00 AM EST Appointment Maternal Medicine [facility] [address] [facility] [address] [place] [phone] Medicine BanksStart: 10-06-2025 End: 99-28-0103Uytfnomcwujq consultation with qprtklj2010/06/2025 2:30 PM EST Telemedicine Maternal- Medicine at [facility] [address] [place] [address] Chivo Springer PA-C [address] [facility] [address] [address] Maternal- Medicine at [facility] [place]: 10-05-2025 End: 28-17-3344Baashij encounter impfdruvm03/10/2025 3:00 PM EST Office Visit Maternal- Medicine at [facility] [address] [place] [address] Chivo Springer PA-C [address] [facility] [address] [address] Maternal- Medicine at [facility] [place]: 10-05-2025 End: 41-86-2920Yppafoajhcel consultation with bbyjogi8110/05/2025 3:00 PM EST Telemedicine Maternal- Medicine at [facility] [address] [place] [address] Chivo Springer PA-C [address] [address] Maternal- Medicine at [facility]art: 72-45-6707ADF ( or age 60+ yrs) (1 - Risk 1-dose series)RSV ( or age 60+ yrs) (1 - Risk 1-dose series)[facility] Hospitaltart: 09-30-2025 End: 88-08-7999Dwrnltv encounter procedureNOMS Patti YOUNGNComment on above: ArrivedStart: 09-16-2025 End: 88-97-1759ZO biophysical profile w non stress testUS biophysical profile w non stress test Imaging Routine Gestational diabetes mellitus (GDM),antepartum, gestational diabetes method of control unspecified ([facility]) Expected: 09/16/2025, Expires: 09/16/2026NOMS HealthcareComment on above:Expected: 09/16/2025, Expires: 09/16/2026Start: 09-15-2025 End: 96-24-4657Zdbqhpk encounter ciohbctlm06/21/2025 2:50 PM EDT Routine NOMShalonda MOODY [address] [place], [id number] Zenobia Gutierrez PA [address] [place] [address] NOMShalonda Izaguirrert: 09-10-2025 End: 67-17-4995Cfoixjtaxwxm consultation with boafrvq6709/10/2025 11:00 AM EDT Telemedicine M[facility] [address] [phone] Madhuri Monroy MD [address] [facility] [place], [address] [place] [address] Maternal Medicine BanksStart: 09-10-2025 End: 45-79-9247Sgdbcol encounter uvquwntmc43/16/2025 9:45 AM EDT Appointment Maternal Medicine [facility] [address] [phone] [phone] Medicine [facility] Hospitalart: 09-07-2025 End: 35-08-1640Kbznxbs encounter procedureNOMS BCP OBStart: 09-04-2025 End: 37-58-8641Awzmsyf encounter fheqkufvg10/10/2025 3:00 PM EDT Office Visit Maternal- Medicine at [facility] [address] [place] [phone] Mine Denise MD [address] [facility], [address] [place] [address] Maternal- Medicine at [facility] [place]: 09-03-2025 End: 23-66-1421Kvyhxui encounter procedureNOMS [place] OBGYNComment on above: [facility] HospitalStart: 08-27-2025 End: 58-55-8848Alqcgtq encounter vekneqaqd59/02/2025 3:20 PM EDT Routine NOMShalonda [place] OBGYN [address] [id number] Steph Keane NP [address] [place] [address] NOMS Patti Izaguirrert: 08-27-2025 End: 20-18-0077Qsbcgzs aminotransferase [Enzymatic activity/volume] in Serum or PlasmaALT Lab Routine induced hypertension, antepartum (HHS-HCC) Expected: 08/27/2025 (Approximate), Expires: 08/27/2026[facility] HealthcareComment on above:Expected: 08/27/2025 (Approximate), Expires: 08/27/2026Start: 08-27-2025 End: 96-62-8464Ckdqbquqd aminotransferase [Enzymatic activity/volume] in Serum or PlasmaAST Lab Routine induced hypertension, antepartum (HHS-HCC) Expected: 08/27/2025 (Approximate), Expires: 08/27/2026[facility] HealthcareComment on above:Expected: 08/27/2025 (Approximate), Expires: 08/27/2026Start: 08-27-2025 End: 78-91-6630NTZ W Auto Differential panel - BloodCBC and differential Lab Routine induced hypertension, antepartum (HHS-HCC) Expected: 12/2024 (Approximate), Expires: 08/27/2026[facility] HealthcareComment on above: Expected: 08/27/2025 (Approximate), Expires: 08/27/2026art: 08-27-2025 End: 37-19-8396Jqqgrkauvn [Mass/volume] in Serum or PlasmaCreatinine Lab Routine induced hypertension, antepartum (HHS-HCC) Expected: 08/27/2025 (Ap proximate), Expires: 08/27/2026[facility] Healthcare Work Phone: comment on above:Expected: 08/27/2025 (Approximate), Expires: 08/27/2026Start: 08-27-2025 End: 42-73-6636Cuopjvr dehydrogenase [Enzymatic activity/volume] in Serum or Plasma by Lactate to pyruvate reactionLactate dehydrogenase Lab Routine induced hypertension, antepartum (HHS-HCC) Expected: 08/27/2025, Expires: 08/27/2026[facility] HealthcareComment on above:Expected: 08/27/2025, Expires: 08/27/2026Start: 08-27-2025 End: 42-96-7397Kwanvtf, urine, 24 hourProtein, urine, 24 hour Lab Routine induced hypertension, antepartum (HHS-HCC) Expected: 08/27/2025 (Approximate), Expires: 08/27/2026[facility] HealthcareComment on above:Expected: 08/27/2025 (Approximate), Expires: 08/27/2026Start: 08-27-2025 End: 41-63-4621Qh and pttPt and ptt Lab Routine induced hypertension, antepartum (HHS-HCC) Expected: 08/27/2025, Expires: 08/27/2026[facility] Comment on above:Expected: 08/27/2025, Expires: 08/27/2026Start: 08-27-2025 End: 48-69-8927Jhgov [Mass/volume] in Serum or PlasmaUric acid Lab Routine induced hypertension, antepartum (HHS-HCC) Expected: 08/27/2025 (Bouchra roximate), Expires: 08/27/2026[facility] HealthcareComment on above:Expected: 08/27/2025 (Approximate), Expires: 08/27/2026Start: 08-27-2025 End: 35-91-1685Xvvo nitrogen [Mass/volume] in Serum or PlasmaBUN Lab Routine induced hypertension, antepartum (HHS-HCC) Expected: 08/27/2025, Expires:08/27/2026[facility] HealthcareComment on above:Expected: 08/27/2025, Expires: 08/27/2026Start: 08-27-2025 End: 49-42-5488GH biophysical profile w non stress testUS biophysical profile w non stress test Imaging Routine induced hypertension, antepartum ([facility]) Gestational diabetes mellitus (GDM) in second trimester, gestational diabetes method of control unspecified ([facility]) Expected: 08/27/2025 (Approximate), Expires: 02/25/2026[facility] HealthcareComment on above:Expected: 08/27/2025 (Approximate), Expires: 02/25/2026Start: 08-24-2025 End: 92-01-2504lqgdyrtydv66/29/2025 1:30 PM EDT Support Visit Maternal- Medicine at [facility] [address] [facility] [place] [phone] Teena Sarmiento, RN [address] [facility], [address] [place] [address] Kerline Augustin, RD [address] [facility], [address] [place] [address] Maternal- Medicine at [facility] [place]: 08-24-2025 End: 34-39-0395Fgvhlfq encounter zcugiwnuv47/29/2025 11:00 AM EDT Office Visit NOMS BCP OB [address] [place] [phone] Nathan Pop, DO [address] [place] [address] NOMS BCP OBStart: 08-12-2025 End: 60-51-0203Bpsjesm encounter qugujvuhe22/17/2025 2:40 PM EDT Routine NOMShalonda YOUNGN [address] [place], [id number] Nathan Pop, DO [address] [place] [address] NOMShalonda [place] OBGYNStart: 08-12-2025 End: 92-89-8816Iuxlhwreest of glucose 3 hours after glucose challenge for glucose tolerance testGlucose tolerance, 3 hours Lab Routine Elevated glucose tolerance test Expected: 08/12/2025 (Approximate), Expires: 08/12/2026[facility] Work Phone: comment on above:Expected: 08/12/2025 (Approximate), Expires: 08/12/2026Start: 08-12-2025 End: 04-41-9901Zwzdmzklwesn / ancillary services jndbgargyq56/17/2025 2:00 PM EDT Ancillary Procedure NOMS Patti YOUNGN [address] [place] [address] [place] [address] XFWF Patti OBGYNStart: 07-31-2025 End: 87-98-1163OXR W Auto Differential panel - BloodCBC and differential Lab Routine Hypertension, unspecified type Wellness examination Expected: 07/31/2025 (Approximate), Expires: 08/29/2025[facility] Work Phone: Comment on above:Expected: 07/31/2025 (Approximate), Expires: 08/29/2025Start: 07-31-2025 End: 91-61-1029Pxuujsemenzqo metabolic 2000 panel - Serum or PlasmaComprehensive metabolic panel Lab Routine Hypertension, unspecified type Wellness examination Expected: 07/31/2025 (Approximate), Expires: 08/29/2025[facility] HealthcareComment on above:Expected: 07/31/2025 (Approximate), Expires: 08/29/2025Start: 07-31-2025 End: 42-24-5323Kjsfo 1996 panel - Serum or PlasmaLipid panel Lab Routine Wellness examination Lipid screening Expected: 07/31/2025 (Approximate), Exp ires: 08/29/2025[facility] HealthcareComment on above:Expected: 07/31/2025 (Approximate), Expires: 08/29/2025Start: 07-30-2025 End: 84-99-2489Hpefwvd encounter /04/2025 3:40 PM EDT Office Visit [facility] [address] [place] [address] Eliceo Beltran DO [address] [place] [address] [facility]rivedNOMission [facility] 230Comment on above:ArrivedStart: 65-26-7909YKSEQ-19 Vaccine ( season)COVID-19 Vaccine ( season)[facility] HealthcareStart: 07-27-2025 Influenza vaccinationNOLA HealthcareStart: 07-15-2025 End: 36-37-7961Ngqrpxd encounter tpdozxxpa68/20/2025 3:30 PM EDT Routine NOMS Patti OBGYN [address] [facility] [address] [place], [id number] Nathan Pop, [address] [place] [address] NOMS Patti OBGYNStart: 07-15-2025 End: 09-54-4218Bqejckgsuuvt / ancillary services /20/2025 2:30 PM EDT Ancillary Procedure NOMS Patti OBGYN [address] [facility] [place] [phone] NOMS [place] OBGYNStart: 07-15-2025 End: 67-24-4166JUF panel - Blood by Automated countCBC Lab Routine Diabetes mellitus screening Expected: 07/15/2025 (Approximate), Expires: 07/15/2026[facility] Work Phone: comment on above:Expected: 07/15/2025 (Approximate), Expires: 07/15/2026Start: 07-15-2025 End: 86-35-7345Vkgsspbusst of glucose 1 hour after glucose challenge for glucose tolerance testGlucose tolerance, 1 hour Lab Routine Diabetes mellitus screening Expected: 07/15/2025 (Approximate), Expires: 07/15/2026[facility] HealthcareComment on above:Expected: 07/15/2025 (Approximate), Expires: 07/15/2026Start: 06-22-2025 End: 22-57-2855Iztuixh encounter lfgffdulv73/28/2025 2:10 PM EDT Routine NOMS Patti OBGYN [address] [facility] [address] [place], [id number] Nathan Pop, [address] [place] [address] ArrivedNOMS Patti OBGYNComment on above:ArrivedStart: 06-22-2025 End: 37-99-1636Yhmqo fetoprotein, maternalAlpha fetoprotein, maternal Lab Routine Second trimester ([facility]) 17 weeks gestation of ([facility]) Expected: 06/22/2025 (Approximate), Expires: 12/23/2025[facility] Healthcare Comment on above:Expected: 06/22/2025 (Approximate), Expires: 12/23/2025Start: 06-22-2025 End: 46-79-4890GF for pregnancyUS OB 14+ weeks anatomy scan Imaging Routine Screening, , for anatomic survey ([facility]) Expected: 06/22/2025, Expires: 09/22/2025[facility] Healthcare Work Phone: comment on above:Expected: 06/22/2025, Expires: 09/22/2025Start: 05-25-2025 End: 73-46-5449Ihvzstm encounter bjunjntdd93/30/2025 2:40 PM EDT Routine NOMS BCP OB [address] [facility] [place] [phone] Nathan Pop, DO [address] [facility] [place] [address] NOMS BCP OBStart: 05-01-2025 End: 17-97-8770JJC/RhABO/Rh Lab Routine Missed menses , unspecified gestational age Expected: 05/01/2025 (Approximate), Expires: 05/01/2026[facility] HealthcareComment on above:Expected: 05/01/2025 (Approximate), Expires: 05/01/2026Start: 05-01-2025 End: 81-89-8133Vgijc type and Indirect antibody screen panel - BloodType and screen Lab Routine Missed menses , unspecified gestational age Expected: 05/01/2025 (Approximate), Expires: 05/01/2026[facility] Healthcare Work Phone: comment on above:Expected: 05/01/2025 (Approximate), Expires: 05/01/2026Start: 05-01-2025 End: 67-67-8953Ewhao of abuse panel - Urine by Screen methodRapid drug screen, urine Lab Routine , unspecified gestational age Encounter for supervision of normal first in first trimester Expected: 05/01/2025 (Approximate), Expires: 05/01/2026[facility] HealthcareComment on above:Expected: 05/01/2025 (Approximate), Expires: 05/01/2026Start: 01-19-2025 End: 45-84-9004Uohbivo encounter procedureNOMS BCP OBComment on above:Arrived Start: 01-19-2025 End: 78-25-9897MuxkovlyjjgyIyytwsjfanjo Lab Routine Pain in female genitalia on intercourse Endometriosis Expected: 01/19/2025(Approximate), Expires: 01/19/2026 [facility] Work Phone: comment on above:Expected: 01/19/2025 (Approximate), Expires: 01/19/2026Start: 08-18-2024 End: 35-58-9681Wfstlcv encounter procedureNOMS BCP OBComment on above:Arrived Start: 29-50-1917Huatsgcvk vaccinationSelect Medical [facility] Rehabilitation Hospital - Dublintart: 07-22-2024 End: 15-93-0792RP for pregnancyUS PELVIS-TRANSVAG IF INDICATED Imaging Routine Dysmenorrhea, unspecified Expected: 07/22/2024 (Approximate), Expires: 07/22/2025[facility] Work Phone: comment on above:Expected: 07/22/2024 (Approximate), Expires: 07/22/2025Start: 06-23-2024 End: 90-10-9552Duzckam encounter lrzylhpvz19/29/2024 10:30 AM EDT Office Visit Obstetrics/Gynecology [address] [address] Charlene Rodriguez DO [address] [place] [address] 2 WEEK POST OPObstetrics/GynecologyComment on above:2 WEEK POST OPStart: 05-27-2024 End: 29-65-6619Webpczvtp to same day surgery jruhel1705/27/2024 7:30 AM EDT - 05/27/2024 9:30 AM EDT Surgery [facility] Surgery [address] [place] [address] Charlene Rodriguez, DO [address] [place] [address] LAPAROSCOPY FULGURATION OR EXCISION OF LESIONS OF THE OVARY PELVIC VISCERA OR PERITONEAL SURFACE BY ANY METHODParkview Health Bryan Hospital SurgeryComment on above:LAPAROSCOPY FULGURATION OR EXCISION OF LESIONS OF THE OVARY PELVIC VISCERA OR PERITONEAL SURFACE BYANY METHODStart: 05-27-2024 End: 44-15-7431Peux fulg/exc ovary viscera/peritoneal surfaceLAPAROSCOPY FULGURATION OR EXCISION OF LESIONS OF THE OVARY PELVIC VISCERA OR PERITONEAL SURFACE BYANY METHOD Endometriosis 05/27/2024 7:30 AM EDTME ORStart: 05-27-2024 Subsequent hospital visit by jqvburpyg39/02/2024 7:30 AM EDT Hospital Encounter [facility] Surgery [address] [place] [address] Charlene Rodriguez, DO [address] [place] [address] [phone] (F ax) Endometriosis [N80.9][facility] SurgeryComment on above:Endometriosis [N80.9]Start: 90-20-0227Eanqqwsuk vaccinationInfluenza Vaccine (#1)[facility] HealthcareComment on above:Postponed from 07/27/2023 (Patient Refused)Start: 05-20-2024 End: 82-34-8969pbqdrmykrb25/25/2024 10:00 AM EDT [facility] INCLUSION TEACHER UROL LYLES MOB [address] [address] [place], [employer]ure Farm Manager Nurse [address] [address] RN GLENNGYN UROL LYLES MOBComment on above:RN TEACHINGStart: 04-22-2024 End: 07-12-2983Yzfuxjw encounter mssevjuvo23/28/2024 9:00 AM EDT Office Visit NOMS [facility] [address] [place] [address] Denny Rodríguez MD [address] [place] [address] NOMS SEP FMStart: 20-36-9902IJcM,Tdap and Td Vaccines (7 - Td or Tdap)DTaP,Tdap and Td Vaccines (7 - Td or Tdap)[facility] SystemStart: 11-46-9170OCiT/Tdap/Td Vaccines (7 - Td or Tdap)DTaP/Tdap/Td Vaccines (7 - Td or Tdap)[facility]Start: 76-26-3543Srhdb microalbumin profileDTaP,Tdap,Td Vaccine (7 - Td or Tdap)[facility]art: 01-30-2024 End: 28-13-7307Dnwyyaa encounter dvfsredvu43/06/2024 11:10 AM EST Consult [facility] [address] [facility] [place] [address] Nathan Pop DO [address] [place] [address] N[facility]S [facility] OBStart: 01-15-2024 End: 09-91-6190Bybxkhifvpmo / ancillary services qkbfybnwzo60/20/2024 8:00 AM EST Ancillary Procedure [facility] [address] [facility] [place] [address] N[facility]S [facility] OBStart: 01-10-2024 End: 12-11-4368AK for pregnancyUS PELVIS-TRANSVAG IF INDICATED Imaging Routine Pelvic pain in female Expected: 01/10/2024 (Approximate), Expires: 01/10/2025 [facility] Work Phone: comment on above:Expected: 01/10/2024 (Approximate), Expires: 01/10/2025Start: 07-45-5444Qqbnkpmunz Health ScreeningBehavioral Health ScreeningSelect Medical [facility] Rehabilitation Hospital - Dublintart: 43-80-4843Ntzfqtbrks AssessmentDepression AssessmentCleCherrington Hospitaltart: 35-84-0999Efcpb-19 Vaccine ( season) Covid-19 Vaccine ( season)[facility]ublintart: 43-89-1477Vilsmiakl vaccinationSelect Medical [facility] Rehabilitation Hospital - Dublintart: 95-34-2663HCHAJOLGGX ASSESSMENTDEPRESSION ASSESSMENTSelect Medical [facility] Rehabilitation Hospital - Dublintart: 81-59-5261Eoudepvcq vaccinationInfluenza Vaccine (#1)[facility] HospitalStart: 79-35-5471JOF, Provider: Charlene Rodriguez, Status: Pen, Time: 1:30 PMFUV, Provider: Charlene Rodriguez, Status: Pen, Time: 1:30 PM EO-AGISE-Cksefv 320 Work Phone: Start: 58-73-0291ILD, Provider: Charlene Rodriguez, Status: Pen, Time: 11:15 AMFUV, Provider: Charlene Rodriguez, Status: Pen, Time: 11:15 AM EU-LJXJG-Gymexp 320 Work Phone: Start: 71-48-1213FSN TESTINGPAP TESTINGSelect Medical OhioHealth Rehabilitation Hospital - Dublintart: 32-88-7044Suvxrsrio for malignant neoplasm of cervixSelect Medical OhioHealth Rehabilitation Hospital - Dublintart: 51-96-3351MQhP,Tdap and Td Vaccines (1 - Tdap)DTaP,Tdap and Td Vaccines (1 - Tdap)[facility]art: 34-34-8282LXoF/Tdap/Td Vaccines (1 - Tdap)DTaP/Tdap/Td Vaccines (1 - Tdap)[facility] HospitalStart: 36-15-8513Rgxqg microalbumin profileSelect Medical OhioHealth Rehabilitation Hospital - Dublintart: 65-60-6782Ofcyb BMI Follow Up Plan Adult BMI Follow Up PlanFormerly H[facility]s Memorial Hospitaltart: 74-77-5501Snyxl BMI ScreeningAdult BMI ScreeningFormerly [facility] Hospitaltart: 64-74-7211URGAKW PCP TEAM CHRONIC DISEASE VISITANNUAL PCP TEAM CHRONIC DISEASE VISITParkview Health [facility] Start: 67-72-4146BP CONTROLLED (<130/80)BP CONTROLLED (<130/80)[facility] Start: 17-89-5519CDAHJVKPQ C SCREENINGHEPATITIS C SCREENINGParkview Health [facility] Start: 51-28-4476Cetwbpypz C screeningHepatitis C ScreeningParkview Health [facility] Start: 76-43-8567YLK SCREENINGHIV SCREENINGSelect Medical [facility] Hospital - Dublintart: 17-46-6603IJT screeningHIV ScreeningSelect Medical Ohio[facility] Rehabilitation Hospital - Dublintart: 63-68-5737Dalsnbv of varicella vaccinationVaricella Vaccines (1 of 2 - 13+ 2-dose series)[facility] HospitalStart: 63-32-6735Akrouojvln ScreeningDepression ScreeningFormerly [facility] Hospitaltart: 37-49-2328Hhnoypv ScreeningTobacco ScreeningFormerly [facility] Memorial Hospitaltart: 70-08-1202Odvzenhxv vaccinationVaricella Vaccines (1 of 2 - 2-dose childhood series)[facility] HospitalStart: 86-51-4579EIQ Vaccines (1 of 1 - Standard series)MMR Vaccines (1 of 1 - Standard series)[facility] HospitalStart: 76-02-0095Raktjefkc vaccinationVaricella Vaccines (1 of 2 - 2-dose childhood series)[facility] Start: 60-34-4343XIWIP-19 VACCINE (#1)COVID-19 VACCINE (#1)[facility] Start: 75-03-5676QSUOHPSJI B (1 of 3 - 3-dose series)HEPATITIS B (1 of 3 - 3- dose series)[facility]: 94-34-8322Ateqigclc B Vaccine (1 of 3 - 3- dose series)Hepatitis B Vaccine (1 of 3 - 3-dose series)[facility]art: 24-59-4577Tdkcythno B Vaccines (1 of 3 - 3-dose series)Hepatitis B Vaccines (1 of 3 - 3-dose series)[facility] HospitalStart: 79-76-6669Nevug panelLipid PanelSumma HealthBacteria identified in Urine by CultureUrine culture Microbiology Routine Missed menses Ordered: 05/01/2025[facility] HealthcareComment on above:Ordered: 05/01/2025BC W Auto Differential panel - BloodCBC and differential Lab Routine Missed menses , unspecified gestational age Ordered: 05/01/2025[facility] HealthcareComment on above:Ordered: 05/01/2025ytology Cervical or vaginal smear or scraping studyPap Smear Pathology and Cytology Routine Well woman exam with routine gynecological exam Ordered: 08/18/2024[facility] Healthcare Work Phone: comment on above:Ordered: 08/18/2024Hemoglobin A1c/Hemoglobin.total in BloodHemoglobin A1c Lab Routine Missed menses , unspecified gestational age Ordered: 05/01/2025[facility] HealthcareComment on above: Ordered: 05/01/2025Hepatitis B virus surface Ag [Presence] in Serum or Plasma by ImmunoassayHepatitis B surface antigen Lab Routine Missed menses , unspecified gestational age Ordered: 05/01/2025[facility] HealthcareComment on above: Ordered: 05/01/2025Hepatitis C virus Ab [Presence] in Serum or Plasma by ImmunoassayHepatitis C antibody Lab Routine Missed menses , unspecified gestational age Ordered: 05/01/2025[facility] HealthcareComment on above:Ordered: 05/01/2025HIV-1/HIV-2 antigen/antibody combination immunoassayHIV-1 and HIV-2 antibodies Lab Routine Missed menses , unspecified gestational age Ordered: 05/01/2025[facility] HealthcareComment on above:Ordered: 05/01/2025 End: 79-24-8899Gvz pelvis w/o & w/contrast materialMRI FEMALE PELVIS WO/W IVCON Radiology Routine Pelvic and perineal pain 1 Occurrences starting 05/17/2023 until [facility] Work Phone: Comment on above:1 Occurrences starting 05/17/2023 until 4Reagin Ab [Presence] in Serum by RPRRPR Lab Routine Missed menses , unspecified gestational age Ordered: 05/01/2025[facility] Comment on above:Ordered: 05/01/2025Rubella antibody, IgGRubella antibody, IgG Lab Routine Missed menses , unspecified gestational age Ordered: 04/2025[facility] HealthcareComment on above:Ordered: 05/01/2025 End: 85-44-0895PsrcmiMercy Hospital St. John's Work Phone: Comment on above:Once (Lab) for 1 Occurrences starting 11/30/2022 until 11/30/2022, 1 completed End: 55-08-6944FP for pregnancyUS OB follow up transabdominal approach Imaging Routine Gestational diabetes mellitus (GDM), antepartum, gestational diabetes method of control unspecified ([facility]-HCC) every 4 weeks for 2 Occurrences starting 09/16/2025 until 12/17/2025[facility] Work Phone: comment on above:every 4 weeks for 2 Occurrences starting 09/16/2025 [facility] Immunizations Immunization DateImmunizationNotesCare WvagijflHipaetct12-72-8389ldafnksgm A vaccine, adult dosageCorey Kiesha DO Work Phone: [facility] HospitalInmmdtqiht72-48-3585tcxha papilloma virus vaccine, quadrivalentCorey Kiesha DO Work Phone: [facility] HospitalUtewquytpz55-02-9471yfuygptyu, seasonal, injectable, preservative freeCorey Kiesha DO Work Phone: [facility] HospitalQjfflzfafb91-96-2775lzqerrfbo virus vaccine, unspecified formulationGina Moschella DO Work Phone: [facility] HospitalYewziy08-59-1079ugran papilloma virus vaccine, quadrivalentCorey Kiesha DO Work Phone: [facility] HospitalWfemeoagxy23-22-5786qeltecrlj A vaccine, adult dosageCorey Kiesha DO Work Phone: [facility] HospitalUttsrmbsws28-97-5187hyvqf papilloma virus vaccine, quadrivalentCorey Kiesha DO Work Phone: [facility] HospitalKtiukbpwub13-26-1750kxdawii toxoid, reduced diphtheria toxoid, and acellular pertussis vaccine, adsorbedCorey Kiesha DO Work Phone: [facility] HospitalBbvenmqxor11-59-1074zkqdxvgrvhcnu polysaccharide (groups A, C, Y and W-135) diphtheria toxoid conjugate vaccine (MCV4P)Nathan Kiesha DO Work Phone: [facility] HospitalRvfwieyawb58-69-4939iouasgbcjy, tetanus toxoids and acellular pertussis vaccine, unspecified formulationCorey Kiesha DO Work Phone: [facility] HospitalAxndbmxarf82-64-1439uxckioc, mumps and rubella virus vaccineCorey Kiesha DO Work Phone: [facility] HospitalOjzkvxyvfi78-26-5754bqwdkoblez vaccine, inactivatedCorey Kiesha DO Work Phone: [phone] HospitalGnhzxpdtmu03-35-7014ipejbhacqz, tetanus toxoids and acellular pertussis vaccine, unspecified formulationCorey Kiesha DO Work Phone: [phone] HospitalBxbqwxkwse03-28-3309OMD-Pwhktxtncqr influenzae type b conjugate vaccineCorey Kiesha DO Work Phone: [phone] HospitalUlcteuecdw64-13-9053wjynmebjt B vaccine, pediatric or pediatric/adolescent dosageCorey Kiesha DO Work Phone: [phone] HospitalKwdcvgvfft57-49-1163ilgiwvs, mumps and rubella virus vaccineCorey Kiesha DO Work Phone: [phone] [place], [place] [address]Ydmwocgbve74-80-9725apqriudao poliovirus vaccine, live, oralCorey Kiesha DO Work Phone: [phone] [place], [place] [address]Unruuqmvxq26-81-1686GRO-Bypzjmqvrwl influenzae type b conjugate vaccineCorey Kiesha DO Work Phone: [phone] [place], [place] [address]Xffrlehmay68-81-4732xnkxyatcj B vaccine, pediatric or pediatric/adolescent dosageCorey Kiesha DO Work Phone: [phone] [place], [place] [address]Bnztzismor19-68-0206wkaicrbjr poliovirus vaccine, live, oralCorey Kiesha DO Work Phone: [phone] [place], [place] [address]Yphkxsbalz03-48-7852QUY-Cwiebetqybv influenzae type b conjugate vaccineCorey Kiesha DO Work Phone: [phone] [place], [place] [address]Xeaonznopx77-79-7129pbwyfpkcm B vaccine, pediatric or pediatric/adolescent dosageCorey Kiesha DO Work Phone: [phone] [place], [place] [address]Htgnpmtkxp48-88-8396xjbgkugdl poliovirus vaccine, live, oralCorey Kiesha DO Work Phone: [phone] HealthcareNEGATED: Highlighted row has not occurred!16-19-2135baunarp, mumps and rubella virus vaccineKatcarlos Ryder DO Work Phone: [facility]ma HealthComment on above:Deferred: Other - Rubella ImmuneNEGATED: Highlighted row has not occurred!65-56-7557kzgjekt toxoid, reduced diphtheria toxoid, and acellular pertussis vaccine, janetKathe Ryder DO Work Phone: [facility] HospitalComment on above:Deferred: No longer needed - Refused Tdap vaccine. Payers DatePayer CategoryPayerPolicy [id number]-[id number] Managed Care - [facility] [id number] [facility] [id number] [id number] [id number]28.18009-41-8178Xvazctd28-96-9470 PbowhzvLRO553S4720417-18-4152Yympbwz Health Insurance [id number] [id number] [id number] 2..1.332485.3.579.2.174 [id number] 2..1.084658.3.57[id number] 2..1.373121.3.579.[id number] 2..1.546739.3.57[id number] 2..1.394577.3.57[id number] 2..1.336412.3.57[id number] 2..1.514633.3.57[id number] 2..1.868673.3.579.2.97174-79-8875Fwyjiqo866432821 2.840.1.052599.3.57[id number] 2.0.1.216168.3.579.2.70[id number] 2.840.1.202449.3.579.2.[id number] 2.0.1.078944.3.579.2.430879-35-6372Yielnwj84903607 2..1.034867.3.579.2.661183-78-2100Abwwfbx89690946 2.0.1.658400.3.579.2.794727-84-9825Ifaosjz68601520 2..1.871863.3.579.2.224818-63-4114Dqhcgby05505360 2..1.506515.3.579.2.876640-72-6543Aosdjbd74422946 2..1.403834.3.579.2.895868-93-5240Ieoforg21076544 2..1.031351.3.579.2.351496-21-5017Quvhsqi13629489 2..1.735026.3.579.2.475128-62-2647Iuqnuvb24786848 2.0.1.511931.3.579.2.[id number] 2..1.734203.3.579.2.967181-21-9043Afyrwtv88340148 2.0.1.392003.3.579.2.529170-48-3238Jlgzblm6414440 2.840.1.547134.3.579.2.876478-42-9447Nvvnwzb4138169 2..840.1.314408.3.579.2.009696-37-4508Ykocgbe322843549 2..840.1.022538.3.579.2.522981-12-2532Nptzbfy442180081 2..840.1.438353.3.57[id number] 2.16.840.1.693654.3.579.2.5230Vgqplin04957311 2.840.1.493711.3.579.2.531 Social History DateTypeDetailFacilityStart: 01-06-2021 End: 43-41-0797Otvlsq uses seat beltAlways uses seat beltNOMS HealthcareStart: 12-10-2018 End: 35-87-5702Fpaitvm smoking statusNever smoked tobacco (finding)[facility] Campustart: 35-15-0302Uxuyfwv smoking statusNeverSumma Health Barberton Campustart: 01-06-2021 End: 19-87-6559Wsa Assigned At [facility] [employer] Other ToUpper Valley Medical CenterComment on above: denies.Tobacco smoking statusSumma Health Barberton Campustart: 12-10-2018 End: 69-10-5593Gkpunjw use and exposureSmokeless tobacco non-userSelect Medical [facility] Rehabilitation Hospital - Dublintart: 04-11-2023 End: 73-81-3040Xejteez intakeCurrent drinker of alcohol (finding)[facility] Dublintart: 43-34-1971Cfrkzft Commentmaybe a few drinks a monthParkview Health [facility] Start: 97-13-5878Kca Assigned At [facility]usNot on [facility] Blountumdc HealthStart: 01-10-2024 End: 75-15-8968Aktqwhq intakeLifetime non-drinker (finding)[facility] HealthWithin the last year, have you [...] got money to buy more.Never trueNOMS HealthcareStart: 05-08-7008Myhruflpv46YCII HealthcareStart: 83-94-3780Unluiqx Commentcaffeine: 1-2 cups per day, coffee and popNOLA HealthcareStart: 57-78-6372Ckauiar SDOH IPV Jfej3Enqak HealthStart: 76-99-9285Xajrupl SDOH Housing Places Vxkoo7Oegjj HealthStart: 04-12-2022 [facility] HealthStart: 11-18-2022 End: 73-74-7617Jxftjcuj to SARS-CoV-2 (event)Not sureSuour lady of mercy hospital HealthAre you now , , , , never or living with a partner? MarriedNOMS HealthcareDo you feel stress - tense, restless, nervous, or anxious, or unable to sleep at night because yourmind is troubled all the time - these days [OSQ]Only a littleNOLA HealthcareStart: 12-02-2018 End: 63-74-2592RzdIszsny (finding)[facility] Hospitaltart: 33-18-8400Umi Assigned At [facility] Centertart: 08-19-2025 End: 70-70-5329Nybqsggrj beverage intakeCurrent non-drinker of alcohol (finding) [facility] HospitalOpenFin Looker System Medical Equipment Procedure CodeEquipment CodeEquipment Original TextEquipment IdentifierDates [id number]: 08-20-2025 End: each by In Vitro route Daily Use to check FSBS four times daily [id number]: 08-20-2025 End: 09-28-8360Bwv pen needles to give insulin.[id number]: 09-04-2025 Functional Status NhbkJkzbkugymmWrrlfcBzzcgfnw38-11-7186Frbaz score [AUDIT-C]0 09/10/2025 10:17 AM EDT AshleyDanae Martinez [facility]09-04-2025Patient Health Questionnaire 2 item (PHQ-2) [Reported][facility] HospitalQknauifdvb87-46-4971Mviqb score [AUDIT-C]1 12/29/2024 10:25 PM EST Mychart, GenericNOMS Scxrvhxeme61-62-2984Eif often do you have a drink containing alcohol?Monthly or less 12/29/2024 10:25 PM EST Mychart, Generic Monthly or lessNOMS Riiimlntdy84-74-8258Kujdccgyvc status Patient does not drink 12/29/2024 10:25 PM EST Mychart, Generic Patient does not drinkNOEllett Memorial HospitalZrjqiqmavz48-52-8956Uxo often do you have 6 or more drinks on 1 occasion?Never 12/29/2024 10:25 PM EST Mychart, Generic NeverNOMS [facility] 48-82-5374Shjsclu Health Questionnaire 2 item (PHQ-2) [Reported][facility] 87-74-2144Nnsfmzhqhw StatusN/[facility]03-08-2023Functional StatusN/[facility]02-04-2023Functional StatusN/[facility]01-02-2023Functional StatusN/[facility] 07-14-2022N/[facility] Clinical Notes 04-18-2022 to 10-06-2025 Note Date & SffvDjrpIhycorqt15-70-0669 History of Present illness Narrative* Chivo Springer PA-C - 10/06/2025 2:30 PM EST Maternal- Medicine Consultation VIDEO Patient is present at work, provider present at [facility] HISTORY OF PRESENT ILLNESS: Juhi Naidu Valetiana [...] values to us weekly by e-mail to: [email or web address] or by fax to: [phone] Chivo Springer PA-C Maternal- Medicine Office phone: [phone] Chivo Springer PA-C 10/06/25 1606 documented in this encounterC[facility] Clinic [facility] Hospital11-10-2025 Miscellaneous Notes* Telephone Encounter - Anjana Davalos RN - 10/05/2025 2:39 PM EST Left message for patient to send in blood sugar logs prior to video visit [facility] at 3 PM. Also, Instructed patient to contact [facility] if unable to keep appointment today at [facility], then to call at [phone] option 1 to reschedule. documented in this encounterCleveland Clinic [facility] Hospital11-10-2025 Telephone encounter Note* Telephone Encounter - Anjana Davalos RN - 10/05/2025 2:39 PM EST Left message for patient to send in blood sugar logs prior to video visit toady in [facility] at 3 PM. Also, Instructed patient to contact [facility] if unable to keep appointment today at [facility], then to call at [phone] option 1 to reschedule. [facility]11-05-2025 History of Present illness Narrative* Radha [...] to check FSBS. Blood Glucose Monitoring Suppl (D-Eli [employer] Glucometer) w/Device kit 1 kit, Does not [...] John San infection GDM (gestational diabetes mellitus) ([facility]) Headache History of menstrual cramps ([facility]) Varicella zoster Visual impairment HISTORY PAST MEDICAL HISTORY SOCIAL HISTORY Past Medical History: Diagnosis Date Amenorrhea d/t oral contraceptive pills Endometriosis John San infection GDM (gestational diabetes mellitus) ([facility]) Headache History of menstrual cramps severe Hypertension ([facility]) x1 Varicella zoster unsure Visual impairment [...] nursing note reviewed. Exam conducted with a concrete panel installer present. Vitals: Estimated body mass index is 30.36 kg/m as calculated from the following: Height as of 07/30/25: 5' 2 . Weight as of this encounter: 166 lb. BP: 140/82 Patient's last menstrual period was 02/21/2025. Assessment/Plan ICD-10-CM 1. Third trimester ([facility]) Z34.93 POCT urinalysis dipstick manually resulted 2. 31 weeks gestation of ([facility]) Z3A.31 3. Pre-eclampsia in third trimester ([facility]) O14.93 Return OB: Patient presents today [...] of: Nathan Pop DO documented in this encounterBarton County Memorial HospitalQjkwplwhmr56-86-7159 Miscellaneous Notes* Telephone Encounter - Cha Harris [...] change for this week. documented in this encounterC[facility] Clinic [facility]11-03-2025 Telephone encounter Note* Telephone Encounter - [...] this new insulin change for this week. [facility]10-27-2025 Miscellaneous Notes* Telephone Encounter - SILKE [...] blood sugar logs weekly. documented in this [facility]10-27-2025 Telephone encounter Note* Telephone Encounter - SILKE [...] to send in blood sugar logs weekly. [facility] Ritzad37-69-1864 History of Present illness Narrative* Chivo Springer PA-C - 09/21/2025 12:28 PM EDT Insulin dose increased due to elevated fastings. Chivo Springer PA-C 09/21/25 1229 documented in this encounterCleveland Clinic [facility] Hospital10-22-2025 Miscellaneous Notes* Telephone Encounter - Cha [...] blood sugars next week. documented in this encounterCleveland Clinic [facility] Hospital10-22-2025 Telephone encounter Note* Telephone Encounter - [...] send in new blood sugars next week. [facility]10-22-2025 History of Present illness Narrative* Steph [...] John San infection GDM (gestational diabetes mellitus) ([facility]) Headache History of menstrual cramps ([facility]) Varicella zoster Visual impairment HISTORY PAST MEDICAL HISTORY SOCIAL HISTORY Past Medical History: Diagnosis Date Amenorrhea d/t oral contraceptive pills Endometriosis John San infection GDM (gestational diabetes mellitus) ([facility]) Headache History of menstrual cramps severe Hypertension ([facility]) x1 Varicella zoster unsure [...] nursing note reviewed. Exam conducted with a concrete panel installer present. Vitals: Estimated body mass index is 29.78 kg/m as calculated from the following: Height as of 25: 5' 2 . Weight as of this encounter: 162 lb 12.8 oz. BP: 120/80 Patient's last menstrual period was 02/21/2025. Assessment/Plan ICD-10-CM 1. 29 weeks gestation of ([facility]) Z3A.29 POCT urinalysis dipstick manually resulted 2. Third trimester ([facility]) Z34.93 POCT urinalysis dipstick manually resulted 3. Hypertension affecting , antepartum ([facility]) O16.9 4. Gestational diabetes mellitus (GDM), antepartum, gestational diabetes method of control unspecified ([facility]) O24.419 Return OB: Patient presents today [...] and continues to report glucose log to [facility]. Follow up Ultrasound in 4 weeks. Orders Placed This Encounter Procedures POCT urinalysis dipstick manually resulted Follow Up: Patient is to return to office in 2 week for routine OB appointment. Documented by Steph Keane NP on behalf of: Nathan Pop DO documented in this encounterBarton County Memorial HospitalPaafjehasu54-56-7816 History of Present illness Narrative* Madhuri Monroy MD - 09/10/2025 11:00 AM EDT Video Visit via Real-time Synchronous Audiovisual Provider Location: [facility]ER[facility]- MEDICINE [address] [place] [address], [address] [place] [address] Patient Location: Other [place] [facility] office Patient Location Electrician Third: None Video Visit Consent Statement: I discussed [...] that there are some limitations compared to nnjn-li-vqag evaluations. We elected to proceed. REASON FOR [...] and the other consultants, we search on [employer] and all the available care everywhere epic I did review all the imaging studies of the patient available on EMR, ordered by the primary care physician and the other organization development consultant HABITS: Patient activity no restrictions, diet [...] patient is in complete care of her bi consultant. Patient does have ultrasound video visit scheduled [...] today? none documented in this encounterCleveland Clinic [facility] Hospital10-10-2025 History of Present illness Narrative* Radha [...] Yes Have you been seen here at [facility] in a previous ? No Recent ER visits or hospitalizations? 09/03/25 [place] to r/o preeclampsia. Patient states labs WNL Bring blood sugar log or meter with you today? (Please bring them with you for every visit at [facility]) Yes Flu vaccine (Sep-January)? N/A Any [...] and the other consultants, we search on [employer] and all the available care everywhere epic I did review all the imaging studies of the patient available on EMR, ordered by the primary care physician and the other organization development consultant HABITS: Patient activity no restrictions, diet [...] checking blood glucose and remote evaluation through [facility] office until delivery. 5. Discontinue blood [...] patient is in complete care of her bi consultant. Patient does have ultrasound video visit scheduled [...] with questions or concerns. documented in this encounterOhioHealth Shelby HospitalBetter Bean Glzbvn79-46-3858 History of Present illness Narrative* Steph Keane [...] meal for a total of 4times daily. bctgywednm-ieqghup-rphkrerp (Fiorinal) 50-325-40 MG capsule 1 capsule, Oral, [...] San infection Headache History of menstrual cramps ([facility]) Varicella zoster Visual impairment HISTORY PAST MEDICAL HISTORY SOCIAL HISTORY Past Medical History: Diagnosis Date Amenorrhea d/t oral contraceptive pills Endometriosis John San infection Headache History of menstrual cramps severe Hypertension ([facility]) x1 Varicella zoster unsure [...] nursing note reviewed. Exam conducted with a concrete panel installer present. Vitals: Estimated body mass index is 29.41 kg/m as calculated from the following: Height as of 25: 5' 2 . Weight as of this encounter: 160 lb 12.8 oz. BP: 170/90 Patient's last menstrual period was 02/21/2025. ASSESSMENT & PLAN ICD-10-CM 1. 27 weeks gestation of ([facility]) Z3A.27 POCT urinalysis dipstick manually resulted 2. Second trimester ([facility]) Z34.92 Documented by Steph Keane NP on behalf of: Steph Keane NP documented in this encounterBarton County Memorial HospitalJqflymwxse91-08-9221 Miscellaneous Notes* Telephone Encounter - Cha Harris [...] to make that appt. documented in this encounterCleveland Clinic [facility]10-07-2025 Telephone encounter Note* Telephone Encounter - [...] to be transferred [facility] to make that [facility]t. [facility] Eflzlr76-81-6280 History of Present illness Narrative* Steph Keane [...] to check FSBS. Blood Glucose Monitoring Suppl (3dim-Eli Nutrition Glucometer) w/Device kit 1 kit, Does not [...] San infection Headache History of menstrual cramps ([facility]) Varicella zoster Visual impairment HISTORY PAST [...] nursing note reviewed. Exam conducted with a concrete panel installer present. Vitals: Estimated body mass index is 29.23 kg/m as calculated from the following: Height as of 07/30/25: 5' 2 . Weight as of this encounter: 159 lb 12.8 oz. BP: (!) 158/92 Patient's last menstrual period was 02/21/2025. ASSESSMENT & PLAN ICD-10-CM 1. 26 weeks gestation of ([facility]) Z3A.26 POCT urinalysis dipstick manually resulted 2. Second trimester ([facility]) Z34.92 Return OB: Patient presents today [...] labs and have her evaluated today at [facility]. I discussed with OB today and they are aware that patient is coming to be ev aluated. Orders Placed This Encounter Procedures POCT urinalysis dipstick manually resulted Follow Up: Patient is to return to office in 2 week for routine OB appointment. Documented by Steph Keane NP on behalf of: Steph Keane NP documented in this encounterBarton County Memorial HospitalUonuszbqty81-94-2495 Group counseling note* Group Note - Kerline [...] Face to face time was 80 minutes. [employer] Work Phone: [phone] Miscellaneous Notes* Group Note - Kerline Augustin [...] time was 80 minutes. documented in this encounterOhioHealth Shelby HospitalStudio Pangea [facility] HospitalVejcbx62-07-7697 History of Present illness Narrative* Steph Keane [...] San infection Headache History of menstrual cramps ([facility]) Varicella zoster Visual impairment HISTORY PAST [...] nursing note reviewed. Exam conducted with a concrete panel installer present. Vitals: Estimated body mass index is 27.82 kg/m as calculated from the following: Height as of 07/30/25: 5' 2 . Weight as of this encounter: 152 lb 1.9 oz. BP: 138/82 Patient's last menstrual period was 02/21/2025. ASSESSMENT & PLAN ICD-10-CM 1. 24 weeks gestation of ([facility]) Z3A.24 POCT urinalysis dipstick manually resulted 2. Second trimester ([facility]) Z34.92 POCT urinalysis dipstick [...] on Labetalol 100mg BID. Will refer to [facility] for evaluation. Patient deniesany Headache or blurred vision. Documented by Steph Keane NP on behalf of: Nathan Pop DO documented in this encounterBarton County Memorial HospitalVfjkobglvo85-12-3040 History of Present illness Narrative* Eliceo Beltran [...] infection Headache History of menstrual cramps Hypertension ([facility]) Varicella zoster Visual impairment Objective ?Quick [...] Orders: Lipid panel; Future documented in this encounterBarton County Memorial HospitalIdsrcxfpti12-30-1351 History of Present illness Narrative* Christine Ravi [...] nursing note reviewed. Exam conducted with a concrete panel installer present. Vitals: Estimated body mass index is 26.48 kg/m as calculated from the following: Height as of 12/30/24: 5' 2 . Weight as of this encounter: 144 lb 12.8 oz. BP: 120/80 Patient's last menstrual period was 02/21/2025. ASSESSMENT & PLAN ICD-10-CM 1. 20 weeks gestation of ([facility]) Z3A.20 POCT urinalysis dipstick manually resulted 2. Second trimester ([facility]) Z34.92 POCT urinalysis dipstick manually resulted [...] of: Nathan Pop DO documented in this encounterBarton County Memorial HospitalQdnojytklz30-34-7004 History of Present illness Narrative* Steph Keane [...] San infection Headache History of menstrual cramps ([facility]) Varicella zoster Visual impairment HISTORY PAST [...] nursing note reviewed. Exam conducted with a concrete panel installer present. Vitals: Estimated body mass index is 26.73 kg/m as calculated from the following: Height as of 12/30/24: 5' 2 . Weight as of this encounter: 146 lb 1.9 oz. BP: 118/74 Patient's last menstrual period was 02/21/2025. ASSESSMENT & PLAN (Z34.92) Second trimester ([facility]) Plan: POCT urinalysis dipstick manually resulted, Alpha fetoprotein, maternal, Alpha fetoprotein, maternal (Z3A.17) 17 weeks gestation of ([facility]) Plan: POCT urinalysis dipstick manually resulted, Alpha fetoprotein, maternal, Alpha fetoprotein, maternal (Z36.89) Screening, , for anatomic survey ([facility]) Plan: US OB 14+ weeks anatomy [...] of: Nathan Pop DO documented in this encounterBarton County Memorial HospitalZedivoysim43-36-0573 History of Present illness Narrative* Steph Keane [...] San infection Headache History of menstrual cramps ([facility]) Varicella zoster Visual impairment HISTORY PAST [...] nursing note reviewed. Exam conducted with a concrete panel installer present. Vitals: Estimated body mass index is 25.24 kg/m as calculated from the following: Height as of 12/30/24: 5' 2 . Weight as of this encounter: 138 lb. BP: 122/80 Patient's last menstrual period was 02/21/2025. ASSESSMENT & PLAN ICD-10-CM 1. Second trimester ([facility]) Z34.92 POCT urinalysis dipstick manually resulted 2. 13 weeks gestation of ([facility]) Z3A.13 Return OB: Patient presents today [...] of: Nathan Pop DO documented in this encounterBarton County Memorial HospitalIzsvqkqmjp16-48-2294 History of Present illness Narrative* Hina Go [...] Dysmenorrhea 03/29/2023 Endometriosis 03/29/2023 Gastroparesis 03/29/2023 Hypertension ([facility]) 03/29/2023 Intractable migraine without aura and with status migrainosus ([facility]) 03/29/2023 Migraines ([facility]) 03/29/2023 Chronic pelvic pain in female 03/29/2023 Pain in female genitalia on intercourse 03/29/2023 Pain on swallowing 03/29/2023 Panic disorder ([facility]) 03/29/2023 Patellofemoral disorders, left knee 03/29/2023 Patellofemoral disorders, right knee 03/29/2023 Posterior calcaneal exostosis 03/29/2023 Scapular dyskinesis 03/29/2023 Scoliosis 03/29/2023 Seasonal allergic rhinitis due to pollen 03/29/2023 Tachycardia, paroxysmal ([facility]) 03/29/2023 Tension headache 03/29/2023 [...] or undercooked meat, and [facility] Patient has also been advised to [...] by: Hina Go LPN documented in this encounterBarton County Memorial [id number] History of Present illness Narrative* Candis Yanes, PHOTOENGRAVING SKETCH MAKER - 01/19/2025 2:50 PM EST Reason for Appointment: Patient ID: Juhi Gama is a 29 y.o. female who presents for Painful [place] Patient presents today for Consult appointment. MEDICATIONS Current Outpatient Medications Medication Instructions janwlyamso-pqijesqqezeuq-qygxbefk 50-325-40 MG tablet 1 tablet, Oral, Every 6 hours PRN meloxicam (MOBIC) 15 mg, Oral, Daily metoprolol succinate XL (Toprol-XL) 25 MG 24 hr tablet Take 1 tablet by mouth daily ALLERGIES No Known Allergies PROBLEMS Active Ambulatory Problems Diagnosis Date Noted Acquired equinus deformity of foot 03/29/2023 Displacement of cervical intervertebral disc without myelopathy 03/29/2023 Dysmenorrhea 03/29/2023 Endometriosis 03/29/2023 Gastroparesis 03/29/2023 Hypertension ([facility]) 03/29/2023 Intractable migraine without aura and with status migrainosus ([facility]) 03/29/2023 Migraines ([facility]) 03/29/2023 Chronic pelvic pain in female 03/29/2023 Pain in female genitalia on intercourse 03/29/2023 Pain on swallowing 03/29/2023 Panic disorder ([facility]) 03/29/2023 Patellofemoral disorders, left knee 03/29/2023 [...] nursing note reviewed. Exam conducted with a concrete panel installer present. Vitals: Estimated body mass index [...] patient and patient given direct extension to Tire Building Supervisor for any questions/concerns pertaining to fertility. Documented by Candis Yanes LPN on behalf of: Nathan Pop DO documented in this encounterBarton County Memorial HospitalIldoarzsbp53-37-3467 History of Present illness Narrative* Eliceo Beltran [...] min Stress: No Stress Concern Present (12/29/2024) [place] [facility] [employer] - Occupational Stress Questionnaire Feeling of Stress : Only a little Social Connections: Unknown (12/29/2024) Social Connection and Isolation Panel [NHANES] Frequency of Communication with Friends and Family: More than three times a week Frequency of Social Gatherings with Friends and Family: Once a week Attends Restorationism Services: Patient declined Active Member of Clubs [...] with the patient today. Current Outpatient Medications: oiigirxzpa-ivqblzdlafvgn-ryotlsay 50-325-40 MG tablet, Take 1 tablet by mouth every 6 (six) hours if needed for headaches, Disp: 20 tablet, Rfl: 0 desogestrel-ethinyl estradiol (Apri) 0.15-30 MG-MCG tablet, Take 1 tablet by mouth Daily, Disp: 21 tablet, Rfl: 12 metoprolol succinate XL (Toprol-XL) 25 MG 24 hr tablet, Take 1 tablet by mouth daily, Disp: 90 tablet, Rfl: 1 documented in this encounterBarton County Memorial HospitalJahmsagjak92-15-8592 History of Present illness Narrative* Virgen Steen LPN - 08/18/2024 11:00 AM EDT Reason for Appointment: Patient ID: Juhi Cope is a 29 y.o. female who presents for Well Women Visit Patient presents today for Annual Exam. MEDICATIONS Current Outpatient Medications Medication Instructions kgriwmyaen-embuxxqhuefpf-xizpjfyo 50-325-40 MG tablet 1 tablet, Oral, Every [...] 03/29/2023 Pain on swallowing 03/29/2023 Panic disorder ([facility]) 03/29/2023 Patellofemoral disorders, left knee 03/29/2023 [...] Headache History of menstrual cramps severe Hypertension ([facility]) x1 Varicella zoster unsure [...] nursing note reviewed. Exam conducted with a concrete panel installer present. Vitals: Estimated body mass index [...] of: Zenobia Gutierrez PA-C documented in this encounterBarton County Memorial HospitalDnebcdfgrd23-91-0554 History of Present illness Narrative* Christine Ravi LPN - 07/22/2024 9:50 AM EDT Reason for Appointment: Patient ID: Juhi Cope is a 29 y.o. female who presents for Dysmenorrhea Patient presents today for Acute Visit. MEDICATIONS Current Outpatient Medications Medication Instructions inseoqgpbs-lzffeyjfoljva-zurthgrb 50-325-40 MG tablet 1 tablet, Oral, Every [...] nursing note reviewed. Exam conducted with a concrete panel installer present. Vitals: Estimated body mass index [...] of: Nathan Pop DO documented in this encounterBarton County Memorial HospitalCkhvpifqdz48-36-3747 Telephone encounter Note* Telephone Encounter - Candis Garces - 04/29/2024 8:23 AM EDT Received message from admin Anna Webb to cancel surgery and all appts as pt had services elsewhere [facility]06-04-2024 Miscellaneous Notes* Telephone Encounter - Candis Garces - 04/29/2024 8:23 AM EDT Received message from admin Anna Webb to cancel surgery and all appts as pt had services elsewhere documented in this encounterParkview Health [facility]05-31-2024 Telephone encounter Note * Telephone Encounter - Anna De Leon - 04/25/2024 1:10 PM EDT Pt got in sooner for surgery with her local underwriting account representative. Please cancel surgery and all pre and post op appts. [facility]05-31-2024 Miscellaneous Notes* Telephone Encounter - Anna De Leon - 04/25/2024 1:10 PM EDT Pt got in sooner for surgery with her local underwriting account representative. Please cancel surgery and all pre and post op appts. documented in this encounterParkview Health [facility]02-15-2024 History of Present illness Narrative* Nathan [...] nursing note reviewed. Exam conducted with a concrete panel installer present. Vitals: Estimated body mass index [...] of: Nathan Kiesha, DO documented in this encounterBarton County Memorial HospitalEqfdjhuvrl22-02-0720 Miscellaneous Notes* Telephone Encounter - Pippa Simon [...] mg tablet Class: Normal Route: ORAL Order: [id number] E-Prescribing Status: Receipt confirmed by pharmacy (05/17/2023 [...] that may recur and often requires a chcf treatment plan. Once endometriosis is identified, there [...] Center 05/20/2024 10:00 AM Kevin Pires Nurse GYNBanner 06/23/2024 10:30 AM Charlene Rodriguez DO [facility] Appointment scheduled: As listed above Action taken: Refill request routed to clinician Pippa Simon RN January 03, 2024 4:29 PM * Telephone Encounter - Alena Tracy - 01/02/2024 3:52 PM EST Patient: Juhi Cope : 1995 Provider: Charlene Rodriguez DO Caller Phone #: [phone] (home) [phone] (cell) Reason for call: b/c refill Message routed to nurse triage Date of next visit: MEGAN: 12/10/2023 documented in this encounterParkview Health Montpelier Hospital01-15-2024 NoteHNO ID: [id number] Author: CHARLENE RODRIGUEZ DO Service: ? 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 Where to find more information [place] [employer]: www.heart.org Contact a health care [...] provider. Document Revised: 07/27/2022 Document Reviewed: 07/27/2022 Handy Patient Education 2022 [employer]. 09/12/2023 18:18:13 Hypertension, Adult, Fzfe-yx-Cbnq Hypertension, Adult Hypertension is another name for [...] doctor. Keep all follow-up visits. Medicines Take ujus-ntr-tzcbfbe and prescription medicines only as told by [...] provider. Document Revised: 08/31/2022 Document Reviewed: 08/31/2022 Handy Patient Education 2022 [employer]. 09/12/2023 18:18:13 General Headache Without Cause, Ebes-mb-Aupi General Headache Without Cause A headache is pain or discomfort you feel around the head or neck area. There are many causes and types of headaches. In some cases, the cause may not be found. Follow these instructions at home: Watch your condition for any changes. Let your doctor know about them. Take these steps to help with your condition: Managing pain Take rbhn-wwx-ycidita and prescription medicines only as told by [...] provider. Document Revised: 04/12/2022 Document Reviewed: 04/12/2022 Handy Patient Education 2022 [employer]. Follow Up Care 09/12/2023 17:21:57 With:DENNY RODRÍGUEZ Address: [address] [place] [address] Business (1) When:09/15/2023 18:03:37 Comments:Follow-up with your primary care provider in 3 to 5 days. If symptoms worsen, do not improve, or new symptoms arise please report back to emergency department for further evaluation. [facility]10-18-2023 Evaluation + Plan noteExtracted from: Title:ED NoteAuthor:Eric [...] date 09/12/23 18:02:00 EDT, 09/12/23 18:02:00 EDT [facility]10-16-2023 Instructions* Patient Instructions* Jihan Downs APRN.CNP - 09/10/2023 9:52 AM EDT Plan: Trial baclofen suppositories - can switch to pill vaginally if suppositories are not affordable Consider Pelvic floor physical therapy - can find local provider [email or web address] Consider going back to see Dr Kuldip Downs APRN.CNP documented in this encounterParkview Health [facility]10-[facility]-2023 NoteHNO ID: [id number] Author: Charlene Rodriguez DO Service: ? Author Type: Physician Type: Progress Notes Filed: 08/30/2023 11:15 AM Note Text: Tramadol rx sent to pharmacy.[facility]10-05-2023 History of Present illness Narrative* Charlene Rodriguez DO - 08/30/2023 11:13 AM EDT Tramadol rx sent to pharmacy. documented in this encounterParkview Health [facility]pel[facility]10-05-2023 Miscellaneous Notes* Telephone Encounter - Chelsie Dueñas RN - 08/30/2023 10:50 AM EDT Last office visit: 08/24/2023 Assessment and Plan No diagnosis found. Trial baclofen suppositories Will send list of PTs Consider going back to Kuldip SIGNATURE: Jihan Downs APRN.PAINTER RAILROAD CAR Office visit with Dr. Rodriguez 07/16/2023 IMPRESSION: [...] plan. Charlene Rodriguez DO documented in this encounterParkview Health [facility]09-29-2023 NoteHNO ID: [id number] Author: Jihan Downs APRN.ANA LAURA Service: ? Author Type: Nurse Practitioner Type: Progress Notes Filed: 09/10/2023 9:53 AM Note Text: [facility] Department of Benign Gynecology [facility] PATIENT NAME: Juhi Cope DATE: 08/24/2023 Patient Name and verified: Yes Patient Location: [place] This Virtual Visit was completed using My Chart Zoom platform. I have communicated my name and active licensure. The patient's identity and physical location were verified at the time of this visit. Either the patient or their legal paper sales representative has been informed of the [...] appointment yet. 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 [facility] Department of Benign Gynecology [facility] PATIENT NAME: Juhi Cope DATE: 08/24/2023 Patient Name and verified: Yes Patient Location: [place] This Virtual Visit was completed using My Chart Zoom platform. I have communicated my name and active licensure. The patient's identity and physical location wereverified at the time of this visit. Either the patient or their legal paper sales representative has been informed of the [...] appointment yet. 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 History Comments: Sexual Activity: Never; No [...] to see Dr Rodriguez SIGNATURE: Jihan Downs, JAMI.PAINTER RAILROAD CAR Medical Decision Making: Problems: Low: Stable chronic illness Risk: Moderate: Drug management Medical Decision Making Level: 3 - Low documented in this encounterParkview Health [facility]09-[facility]23 Miscellaneous Notes* Telephone Encounter - Marilee [...] 2023 11:57 AM * Telephone Encounter - lAena Tracy - 08/16/2023 11:19 AM EDT Patient: Juhi Cope : 1995 Provider: Charlene Rodriguez DO Caller Phone #: [phone] (home) [phone] (cell) Reason for call: pt calling regarding mc message., still in pain. Please call [phone] Message routed to nurse triage Date of next visit: documented in this encounterParkview Health [facility]09-07-2023 Miscellaneous Notes* Telephone Encounter - Candis Suárez RN - 08/02/2023 11:29 AM EDT PA for orilissa completed via Cover [employer]. Juhi Cope (Morales: [id number]) - [id number] Orilissa 150MG tablets Status: Sent To Plan [...] too. Please advise. Thanks. documented in this encounterParkview Health [facility]08-21-2023 NoteHNO ID: [id number] Author: Charlene Rodriguez DO Service: ? 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 Author Type: Cutting And Printing Machine Operator Type: Progress Notes Filed: 06/12/2023 4:32 [...] BY: RT Claudia(Bryant) June 12, 2023 4:32 PMCSelect Medical Special[facility]-18-2023 NoteHNO ID: [id number] Author: Boo Singh RN Service: Nursing Author [...] Cope DATE: June 12, 2023 TIME: 1:43 [facility]06-22-2023 NoteHNO ID: [id number] Author: Charlene Rodriguez, DO Service: ? 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 Charlene Rodriguez DO Tt: 20 minutesSam[facility]06-[facility]23 History of Present illness Narrative* Charlene Rodriguez DO - 05/17/2023 1:05 PM EDT Images from the original note were not included. 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 Biggest complaint is cramping. Has had 3 periods of bleeding recently - 04/22/2023 LMP, last a few days, 05/04-05/10 bleeding again 05/11/2023 started again today. Takes aygestin 5mg daily. She did not picket labor union flexeril. Encourage to picket labor union the flexeril as this will help with the cramping. Reviewed red flag bleeding symptoms that require trip to ER (soaking greater than one overnight padper hour, chest pain, shortness of breath, fatigue, palpitations).. Advised keep appt. Gives verbal understanding. Appointments for Next 60 Days Date Time Provider Location Dept Phone 05/17/2023 1:00 PM CHARLENE RODRIGUEZ [facility] [phone] Candis Suárez RN * Telephone Encounter - Tawana Nair [facility] - 05/11/2023 1:19 PM EDT Reason for call: other - Vaginal bleeding Provider name: Dr Rodriguez Additional comments: patient having more vaginal bleeding and concerned she is getting worse. Recommendation: routed to nurse triage pool documented in this encounterParkview Health [facility]06-[facility] Instructions* Patient Instructions* Jihan Downs APRN.ANA LAURA - 05/01/2023 11:47 AM EDT Plan Pelvic floor physical therapy - or can go locally [facility] Trial flexeril at bedtime Can consider [...] pelvic pain society ([email or web address].org) documented in this encounterParkview Health [facility]06-06-2023 History of Present illness Narrative* Jihan Downs APRN.ANA LAURA - 05/01/2023 10:30 AM EDT Juhi Cope is a 28 year old female who presents for problem visit for pain HPI: Pain is week before period and week of period. Worse on her period for every day she's bleeding Urinary - No symptoms GI - Always constipated. 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 Author Type: Nurse Practitioner Type: Progress Notes Filed: 05/09/2023 11:46 AM Note Text: Juhi Cope is a 28 year old female who presents for problem visit for pain HPI: Pain is week before period and week of period. Worse on her period for every day she's bleeding Urinary - No symptoms GI - Always constipated. 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 Lucila Foss RN documented in this encounterParkview Health [facility]03-08-2023 Hospital Discharge instructions Patient Education 01/31/2023 [...] told by your health care provider. Take qfqi-rir-cvcfxft and prescription medicines only as told by [...] 01/03/2007 Document Revised: 10/25/2018 Document Reviewed: 01/25/2018 Handy Patient Education 2020 [employer]. Follow Up Care 01/31/2023 13:43:01 With:Denny Meza Address:Unknown When:02/03/2023 18:59:31 Comments:Follow-up for evaluation of hypertension in context of known preeclampsia in the period With:DENNY RODRÍGUEZ [facility] [place] [address]- Business (1) When:Within 3 Day(s) [facility]03-08-2023 Evaluation + Plan noteExtracted from: Title:ED NoteAuthor:Mayur Mabry PA-C CDate:01/31/23 Flank pain (R10.9: Unspecifi ed abdominal pain) Headache (R51.9: Headache, unspecified) Orders: CTA Chest Hepatic Function Panel [facility]02-04-2023 Hospital Discharge instructions Patient Education 12/30/2022 13:59:51 SLD INCLUSION TEACHER - Post D&C, Hysteroscopy, LEEP or Essure/Laparoscopy [...] Instructions - FT (Custom) (Custom) 12/30/2022 13:55:16 SLD INCLUSION TEACHER - Post D&C, Hysteroscopy, LEEP or Essure/Laparoscopy [...] With:Denny Meza Address: [address], [place] [address] [place] [address]- Business (1) When: Unknown Comments:follow up in 1-2 weeks With:DENNY RODRÍGUEZ Address: [address] [place] [place] [address]- Business (1) When:01/02/2023 09:21:18 [facility]02-04-2023 Evaluation + Plan noteExtracted from: Title:ANES Post-operative [...] from:Title:ANES Pre-operative NoteAuthor:Kenneth Agustin MDDate: 12/30/22 Plan [place] [employer]est[employer] (ASA) physical status classification: [...] With Cult Reflex US Pelvis Non-OB Complete [facility]01-10-2023 History of Present illness Narrative* Tory Pimentel [...] Ross MD - 12/05/2022 3:19 PM EST [facility]: This patient was seen in the [facility] by the resident. I reviewed and [...] admitted as a transfer from [facility] for [facility]. She was started on Magnesium there and [...] Information for the patient's : Francie Cope [[id number]] female 2425 g (5 lb 5.5 oz) Apgars: Information for the patient's : Francie Cope [[id number]] : Infant: Girl Blood Type/Rh: O Antibody [...] Your Medications These medications were sent to [facility] [address] [place], [place] [id number] Hours: Sunday to Sunday 10 am to [...] pressure kit through [facility] (or the patient's own pharmacy on the weekend) [] Order the blood pressure log through [employer] [x] Place an office visit or telephone [...] notify her physician if any of these occur.[facility] History of Present illness Narrative* Anna [...] with more than 50% of the total vnbk-aj-zfvl time of the visit in counseling/coordination of [...] be monitored and followed by the diet drinking water technician. CRISS Oshea * Alejandra Arcos RN [...] and reassuring. CCM. Cx:/-3 FHT: Cat 1 Brielle:q3-4 min A/P: 1. IOL-PreEwSF. FHT 130 baseline, with moderate variability, Accelerations present Yes, and rare late deceleration . Cervical exam unchanged. Cytotec x4 placed at this time. Patient intermittently feeling contractions. BP mild range. Cx: 1-/-3 FHP: defer FHT: Cat I Brielle: a3-4min A/P: 1. IOL-PreEwSF: FHT Category I, [...] Cx: unchanged FHP: defer FHT: Cat I Brielle: q4min A/P: 1. IOL-PreEwSF: FHT Category I, [...] 11/29/2022 6:17 AM Cx:1-2/60/-3 FHT: Cat I Brielle:q4-5mins A/P: 1. IOL-PreEwSF: Cat I FHT with [...] per protocol. CCM. Cx:defer FHT: Cat I Brielle:q4-6mins A/P: 1. IOL-PreEwSF: Cat I FHT with baseline 120, moderate variability, spontaneous accelerations, and no decelerations. BP normotensive to mild range since last note time. Pitocin @ 2 cc/hr, continue to titrate per protocol. Magnesium sulfate running for seizure prophylaxis, UOP 400 ml over past 4hours. CCM. Cx:defer FHT: Cat I Brielle:q4-5mins A/P: 1. IOL-PreEwSF: Cat I FHT with baseline 135, moderate variability, spontaneous accelerations, and no decelerations. BP normotensive to mild range since last note time. Pitocin @ 6 cc/hr, continue to titrate per protocol. Magnesium sulfate running for seizure prophylaxis, UOP 600 ml over past 4hours. Will plan for AROM soon. CCM. Cx:defer FHT: Cat I Brielle:irritability A/P: 1. IOL-PreEwSF: Pit @ 8 mu/min. Patient resting comfortably and only irritability tracing on toco. BP most recently mild range. On magnesium sulfate for seizure prophylaxis. UOP adequate. Continue magnesium and continue to titrate pitocin per protocol. Plan for AROM once patient rudi more regularly. Electronically signed by Cortney Velasquez DO 11/29/2022 4:21 PM Cx:470/-3 FHT: Cat 1 Brielle:Not tracing A/P: 1. IOL-PreEwSF. FHT 135 baseline, with moderate variability, Accelerations present Yes, and nodecelerations seen . AROM at this time for moderate amount blood tinged fluid. Pitocin at 8cc/hr. Maternal BP mild range. On Magnesium for Seizure prophylaxis. Patient with adequate urinary output. CCM. Cx: defer FHP: defer FHT: Cat II Brielle: not tracing well A/P: 1. IOL-PreEwSF: FHT [...] per RN FHP: defer FHT: Cat II Brielle: q4min A/P: 1. IOL-PreEwSF: FHT Category II [...] [facility] as [facility] and [...] Information for the patient's : Francie Cope [[id number]] female 2425 g (5 lb 5.5 oz) Apgars: Information for the patient's : Francie Cope [[id number]] : : Girl Blood Type/Rh: O Antibody [...] Your Medications These medications were sent to [facility] [address] [place] [address] Hours: Sunday to Sunday 10 am to [...] pressure kit through [facility] (or the patient's own pharmacy on the weekend) [] Order the blood pressure log through [employer] [x] Place an office visit or telephone [...] home. Denies any concerns at this time. [facility] [id number] Note* Care Coordination - Christine Michelle RN [...] home. Denies any concerns at this time. [facility] [id number] Miscellaneous Notes* Care Coordination - Christine Michelle [...] assist with personal pump. * Note - Shelia Harrell RN - 11/30/2022 10:37 AM EST Swabs given to patient and educated how to use and to bring to infant CRISTIAN * Note - Sheila Harrell RN - 11/30/2022 10:30 AM EST Breast pump use indicated for this pt. Due to: in [facility] Hospital breast pump, supplies kit, swabs [...] to check with LC in [facility] for smaller flange sizes * L&D Delivery Note - Irina Kramer DO - 11/30/2022 4:04 AM EST Images from the original note were not included. Vaginal Delivery Note Department of Obstetrics and Gynecology Patient: Juhi Cope : 1995 Date of delivery: 11/30/2022 Pre-operative Diagnosis: Juhi Mojica0 at 35w1d 1. <37 weeks 2. PreEwSF Post-operative Diagnosis: Live Born female Delivering Software Engineering Associate Manager & Park Interpretive Specialist(s): Dr. Bowden; Dr. Kramer Information: Information for the patient's : Francie Cope [[id number]] Information for the patient's : Francie Cope [[id number]] Description: normal Meconium Noted: No Anesthesia: epidural [...] the resident note. * Care Plan - Clotlide Mg RN - 11/29/2022 7:45 AM EST The patient will continue to make cervical change. Clotilde Mg RN documented in this [facility]01-06-2023 Obstetrics Note* Note - Ligia Bridges RN - 12/01/2022 9:00 AM EST 22.5mm flanges given to patient. Encouraged her to call for observation of pump session and smallerflanges. Martha in NICU to assist with personal pump. [facility] [id number] Hospital Discharge instructions* Discharge Instructions* Carol Bowden [...] as 8 weeks after delivery. Bleeding may picket labor union and then decrease again around 7-10 days [...] avoid constipation you may take a mild aoyp-wvm-csszzzl stool softener (such as colace) as recommended [...] positive or a Person Under Investigation (PUI) Qqysst-ui-qwpvn transmission of COVID-19 during is unlikely, but after a baby is susceptible to psmfms-fq-czcutk spread. After your baby is born, your [...] clean your hands with an alcohol-based hand wood craftsman that contains at least 60% alcohol. Clean your hands often Wash your hands often with soap and water for at least 20 seconds, especially after blowing your nose, coughing, or sneezing; going to the bathroom; and before eating or preparing food. If soap and water are not readily available, use an alcohol-based hand wood craftsman with at least 60% alcohol, covering all [...] healthcare provider to call the local or [facility] health department. Persons who are [...] isolation precautions should be made on a xpjs-mv-pzbe basis, in consultation with healthcare providers and [...] respiratory tract signs and symptoms. Ways to Marceline with Anxiety & Stress It is normal [...] illness that was first found in [facility], in October 2019. It has since [...] seen in people before. This virus spreads kmshsl-qb-ubdeol through droplets from coughing and sneezing. It [...] water aren't available, use an alcohol-based hand wood craftsman. Call 911 anytime you think you may [...] of: February 25, 2020 Content Version: 12.4 [employer]. Care instructions adapted under license by your [...] handles, desks, toilets, faucets, sinks) with household vessel slagman and EPA-registered disinfectants that are appropriate for [...] appropriate. These supplies include tissues, paper towels, vessel slagman and EPA-registered disinfectants (see list link at [facility] website). If a separate bathroom is not [...] be used for other purposes. Consult the skill labor's instructions for cleaning and disinfection products used. [...] used if appropriate for the surface. Follow skill labor's instructions for application and proper ventilation. Check [...] for harder to kill viruses. Follow the skill labor's instructions for all cleaning and disinfection products (e.g., concentration, application method and contact time, etc.). Soft (porous) surfaces such as carpeted floor, rugs, and drapes Remove visible contamination if present and clean with appropriate vessel slagman indicated for use on these surfaces. After cleaning: Launder items as appropriate in accordance with the skill labor's instructions. If possible, launder items using the [...] items as appropriate in accordance with the skill labor's instructions. If possible, launder items using the warmest appropriate water setting for the items and dry items completely. Dirty laundry from an ill person can be washed with other people's items. Clean and disinfect clothes hampers according to guidance above for surfaces. If possible, considerplacing a pricer bagger that is either disposable (can be thrown away) or can be laundered. [facility] has a list of EPA approved cleaning products on their website - https://www.cdc.gov/coronavirus/ 2019-ncov/community/home/cleaning-disinfection.html https://www.Newstag/Brgbw-Fochzpkoykh-Ftqltdqv-Products-List.pdf [employer] with delivery and picket labor union services: [employer]: Free picket labor union at locations Delivery is $12.95 a month Website - [employer] Pattison: Proj Engineer $2.95 (1st order is free) Delivery is $14.95 Website - [employer]: coremaking supervisor is free Delivery is $5.95 Website [employer] In Person [employer]: coremaking supervisor is $4.95 Delivery is $9.95 Website [employer]: coremaking supervisor is $4.95 Delivery is $9.95 Website Secured Mail [employer]: Can be ordered for delivery and picket labor union with [employer] Website - www.[employer]act [employer]: Free deliver for first 3 orders of $35 or more Website - [employer]Digital Magics Will deliver from [employer], [employer], [employer], and [employer]. Annual membership is $99 Monthly membership is $14 * Attachments The following attachments cannot be sent through Care Everywhere. * Preeclampsia Discharge Instructions (Honduran) documented in this [facility]01-05-[facility]23 Obstetrics Note* Note - Sheila Harrell RN - 11/30/2022 10:37 AM EST Swabs given to patient and educated how to use and to bring to CRISTIAN [facility] [id number] Obstetrics Note* Note - Sheila Harrell RN - 11/30/2022 10:30 AM EST Breast pump use indicated for this pt. Due to: in [facility] Hospital breast pump, supplies kit, swabs [...] pump Told patient to check with in [facility] for smaller flange sizes [facility] [id number] NotePatient: Juhi Cope Procedure Summary Date: 11/29/22 [...] discharged once all PACU criteria has been met.[facility]01-[facility] NotePatient: Juhi Cope Procedure Summary Date: [...] Allowed opportunity for questions and acknowledgement of understanding.[facility]01-05-[facility]23 Labor and delivery summary note* L&D Delivery Note - Irina Kramer DO - 11/30/2022 4:04 AM EST Images from the original note were not included. Vaginal Delivery Note Department of Obstetrics and Gynecology Patient: Juhi Cope : 1995 Date of delivery: 11/30/2022 Pre-operative Diagnosis: Juhi Sidhu at 35w1d 1. <37 weeks 2. PreEwSF Post-operative Diagnosis: Live Born female Delivering Software Engineering Associate Manager & Park Interpretive Specialist(s): Dr. Bowden; Dr. Kramer Information: Information for the patient's : Francie Cope [[id number]] Information for the patient's : Francie Cope [[id number]] Description: normal Meconium Noted: No Anesthesia: epidural [...] described in the resident note. [facility] [id number] NoteEpidural Block Time Out: 11/29/2022 6:17 PM Patient location during procedure: OB Start time: 11/29/2022 6:18 PM End time: 11/29/2022 6:45 PM Reason for block: labor analgesia Staffing Performed: HEALTH CARE AIDE Resident/HEALTH CARE AIDE: Jimmie Kaur APRN - HEALTH CARE AIDE Preanesthetic Checklist Completed: patient identified, IV checked, [...] patient tolerated procedure well with no immediate complicationsBeaumont Hospital01-04-2023 Plan of care note* Care Plan - Clotilde Mg RN - 11/29/2022 7:45 AM EST The patient will continue to make cervical change. Clotilde Mg RN [facility] [id number] NotePatient: Juhi Cope Procedure Information Date: 11/28/22 [...] products. patient is not NPO Additional Equipment RequestsBeaumont Hospital01-03-2023 NoteLabor Progress Note Date: 11/28/2022 Time: [...] and reassuring. CCM. Cx:-3 FHT: Cat 1 Brielle:q3-4 min A/P: 1. IOL-PreEwSF. FHT 130 baseline, with moderate variability, Accelerations present Yes, and rare late deceleration . Cervical exam unchanged. Cytotec x4 placed at this time. Patient intermittently feeling contractions. BP mild range. Cx: 1--3 FHP: defer FHT: Cat I Brielle: a3-4min A/P: 1. IOL-PreEwSF: FHT Category I, [...] Cx: unchanged FHP: defer FHT: Cat I Brielle: q4min A/P: 1. IOL-PreEwSF: FHT Category I, [...] 11/29/2022 6:17 AM Cx:1-2/60/-3 FHT: Cat I Brielle:q4-5mins A/P: 1. IOL-PreEwSF: Cat I FHT with [...] per protocol. CCM. Cx:defer FHT: Cat I Brielle:q4-6mins A/P: 1. IOL-PreEwSF: Cat I FHT with baseline 120, moderate variability, spontaneous accelerations, and no decelerations. BP normotensive to mild range since last note time. Pitocin @ 2 cc/hr, continue to titrate per protocol. Magnesium sulfate running for seizure prophylaxis, UOP 400 ml over past 4 hours. CCM. Cx:defer FHT: Cat I Brielle:q4-5mins A/P: 1. IOL-PreEwSF: Cat I FHT with baseline 135, moderate variability, spontaneous accelerations, and no decelerations. BP normotensive to mild range since last note time. Pitocin @ 6 cc/hr, continue to titrate per protocol. Magnesium sulfate running for seizure prophylaxis, UOP 600 ml over past 4 hours. Will plan for AROM soon. CCM. Cx:defer FHT: Cat I Brielle:irritability A/P: 1. IOL-PreEwSF: Pit @ 8 mu/min. Patient resting comfortably and only irritability tracing on toco. BP most recently mild range. On magnesium sulfate for seizure prophylaxis. UOP adequate. Continue magnesium and continue to titrate pitocin per protocol. Plan for AROM once patient rudi more regularly. Electronically signed by Cortney Velasquez DO 11/29/2022 4:21 PM Cx:/-3 FHT: Cat 1 Brielle:Not tracing A/P: 1. IOL-PreEwSF. FHT 135 baseline, with moderate variability, Accelerations present Yes, and no decelerations seen . AROM at this time for moderate amount blood tinged fluid. Pitocin at 8cc/hr. Maternal BP mild range. On Magnesium for Seizure prophylaxis. Patient with adequate urinary output. CCM. Cx: defer FHP: defer FHT: Cat II Brielle: not tracing well A/P: 1. IOL-PreEwSF: FHT Category II for brief period of lates vs early deceleration (more content not included)...[facility] NoteObstetrical History and Physical CHIEF COMPLAINT: [...] 34w6d Is this patient being delivered between 74x7y-41j9k weeks with an acceptable medical indication (obstetric, maternal, and/or )? NA: Not Applicable: This patient is being delivered outside of the PC-01 range (35i8a-55x7m) for reasons indicated in the medical record. [...] VTE Prophylaxis: Not Indicated (more content not included)...[facility] History and physical note* Cassie Constantino [...] 34w6d Is this patient being delivered between 08u9b-32q6j weeks with an acceptable medical indication (obstetric, maternal, and/or )? NA: Not Applicable: This patient is being delivered outside of the PC-01 range (50v3i-16c3k) for reasons indicated in the medical record. [...] with treat with tylenol Discussed with Dr Rdyer and Kal, who agrees with plan. Cassie Constantino MD 11/28/2022, 12:48 AM [facility] [id number] History and physical note* Cassie Constantino MD [...] 34w6d Is this patient being delivered between 26e6c-19f4t weeks with an acceptable medical indication (obstetric, maternal, and/or )? NA: Not Applicable: This patient is being delivered outside of the PC-01 range (15c6g-07j3z) for reasons indicated in the medical record. [...] [facility], Dr. Thea Nieves, she accepted to transfer due to preeclampsia. 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 She is provided with a note for work. Additional diagnosis: Constipation, UTI and [facility]08-19-2022 Hospital Discharge instructions Follow Up Care 07/14/2022 06:07:36 With:Denny Meza Address:Unknown When:07/17/2022 07:24:48 With:DENNY RODRÍGUEZ Address: [address] [place] [place] [address] Business (1) When:Within 3 Day(s) [facility]08-19-2022 Hospital Discharge instructions Follow Up Care 07/14/2022 04:40:16 With:Denny Meza Address: [address], [address] [place] [address]- Business (1) When:07/17/2022 Comments:Appointment has already been scheduledCall Dr if fever>100.5 F, heavy bleedingCall for any problems.Call for severe abdominal painCall physician for heavy vaginal bleedingCall physician if symptoms worsenPlease call if you need to rescheduleReturn for contractions closer, longer, harderReturn ifruptured membranes or vaginal bleeding [facility]05-31-2022 Evaluation + Plan note Diagnostic Tests Pending * Hppln-9-Kqwgbxducap 04/25/22 * INGEL w/Reflex if POS 04/25/22 * Ceruloplasmin 04/25/22 * HCV Antibody RFX to Quant PCR 04/25/22 * HBV Core Ab 04/25/22 * Hepatitis B Surface Antibody 04/25/22 * Hepatitis B Surface Antigen 04/25/22 * Smooth Muscle Antibody Screen 04/25/22 [facility]05-24-2022 Evaluation note* Encounter Date Diagnosis Assessment Notes Treatment Notes Treatment Clinical Notes March, Elevated liver function tests (I CD-10 - R79.89) LABS INDICATED ABOVE [employer] (SDI) Other Evaluation note* Diagnosis Pelvic pain in female- Primary Unspecified symptom associated with female genital organs [facility]* Diagnosis Chronic pelvic pain in female- Primary Unspecified symptom associated with female genital organs Constipation, unspecified constipation type High-tone pelvic floor dysfunction Other specified disorders of female genital organs Diastasis of rectus abdominis Dysmenorrhea Other specified dyspareunia documented in this encounter [facility]* Diagnosis Endometriosis- Primary Endometriosis, site unspecified Pelvic and perineal pain Unspecified symptom associated with female genital organs documented in this encounter [facility]* Diagnosis Pelvic pain in female- Primary Unspecified symptom associated with female genital organs documented [facility]* Diagnosis Pelvic pain in female- Primary Unspecified symptom associated with female genital organs documented in this encounter [facility] note* Diagnosis High-tone pelvic floor dysfunction- Primary Other specified disorders of female genital organs Chronic pelvic pain in female Unspecified symptom associated with female genital organs documented in this encounter [facility] note* Diagnosis Pelvic and perineal pain Unspecified symptom associated with female genital organs documented in this encounter [facility] note* Diagnosis Menorrhagia with regular cycle Pelvic pain in female Unspecified symptom associated with female genital organs Uses control [facility] Diagnosis Preeclampsia, severe, third trimester- Primary Preeclampsia, severe, third trimester documented in this encounter [facility]* Diagnosis Pre-eclampsia, severe, delivered- Primary documented in this encounter [facility]* Diagnosis Dysmenorrhea, unspecified documented in this encounter [facility]* Diagnosis Well woman exam with routine gynecological exam Routine gynecological examination [facility]* Diagnosis Hypertension, unspecified type (CMS/HCC)- Primary Paroxysmal tachycardia, unspecified (CMS/HCC) Paroxysmal tachycardia, unspecified Chronic right shoulder pain Pain in joint, shoulder region Scapular dyskinesis Lack of coordination [facility]* Diagnosis Pain in female genitalia on intercourse Dyspareunia Endometriosis Endometriosis, site unspecified documented in this encounter [facility] HealthcareEvaluation noteNo assessment information availableMercy Health West Hospital Work Phone: Evaluation note* Diagnosis Missed menses , unspecified gestational age Encounter for supervision of normal first in first trimester documented [facility]* Diagnosis Nonintractable episodic headache, unspecified headache type- Primary Second trimester ([facility]) state, incidental 13 weeks gestation of ([facility]) documented [facility]* Diagnosis Sinusitis, unspecified chronicity, unspecified location- Primary Second trimester ([facility]) state, incidental 17 weeks gestation of ([facility]) Screening, , for anatomic survey ([facility]) Encounter for anatomic survey documented [facility] this encounter [facility]* Diagnosis 20 weeks gestation of ([facility]) Second trimester ([facility]) state, incidental Diabetes mellitus screening Screening for diabetes mellitus documented in this [facility]* Diagnosis Wellness examination- Primary Hypertension, unspecified type Lipid screening Screening for lipoid disorders documented [facility]* Diagnosis Wellness examination- Primary Hypertension, unspecified type Lipid screening Screening for lipoid disorders 24 weeks gestation of ([facility]) Second trimester ([facility]) state, incidental Elevated glucose tolerance test Impaired glucose tolerance test documented in this [facility]* Diagnosis Gestational diabetes mellitus (GDM) in second trimester, gestational diabetes method of control unspecified [facility] Diagnosis Wellness examination- Primary Hypertension, unspecified type Lipid screening Screening for lipoid disorders 26 weeks gestation of ([facility] [facility]) Second trimester ([facility]) state, incidental induced hypertension, antepartum ([facility]) Transient hypertension of , antepartum Gestational diabetes mellitus (GDM) in second trimester, gestational diabetes method of control unspecified ([facility]) documented in this encounter [facility]* Diagnosis Wellness examination- Primary Hypertension, unspecified type Lipid screening Screening for lipoid disorders Hypertension affecting , antepartum ([facility])- Primary 27 weeks gestation of ([facility]) Second trimester ([facility]) state, incidental documented in this encounter [facility]* Diagnosis Diet controlled gestational diabetes mellitus (GDM) in second trimester- Primary Essential hypertension affecting in third trimester [facility] Diagnosis 28 weeks gestation of - Primary Insulin controlled gestational diabetes mellitus (GDM) in second trimester Essential hypertension affecting in third trimester documented [facility] encounter [facility]* Diagnosis Essential hypertension affecting in third trimester [facility] Diagnosis Wellness examination- Primary Hypertension, unspecified type Lipid screening Screening for lipoid disorders 29 weeks gestation of ([facility]) Third trimester ([facility]) state, incidental Hypertension affecting , antepartum ([facility]) Gestational diabetes mellitus (GDM), antepartum, gestational diabetes method of control unspecified([facility]) documented in this encounter [facility]* Diagnosis Insulin controlled gestational diabetes mellitus (GDM) in third trimester- Primary Essential hypertension affecting in third trimester documented in this encounter [facility]* Diagnosis Insulin controlled gestational diabetes mellitus (GDM) in second trimester documented in this encounter [facility]* Diagnosis Insulin controlled gestational diabetes mellitus (GDM) in second trimester documented in this encounter [facility]* Diagnosis Wellness examination- Primary Hypertension, unspecified type Lipid screening Screening for lipoid disorders Third trimester ([facility]) state, incidental 31 weeks gestation of ([facility]) Pre-eclampsia in third trimester ([facility]) documented in this encounter [facility] Healthcare[facility]* Diagnosis Insulin controlled gestational diabetes mellitus (GDM) in third trimester- Primary Essential hypertension affecting in third trimester documented [facility] encounter [facility] general Narrative - Reported* Type Description Date Medical History headache Surgical HistoryappendectomySurgical Historyshoulder surgerySurgical History endometriosis Memolane Other History of Present illness Narrative* 26 [...] engaged x 1 year * working at [employer] in [place] [address] Work Phone: Hospital course Narrative No data available for this section [facility] No data available for this section [facility]ructionsNot on filedocumented in this encounter [facility] [...] data available for this section [facility]Reason for visit NarrativePT HERE AT REQUEST OF DR RODRÍGUEZ FOR EVALUATION AND TREATMENT OF ELVATED LIVER FUNCTION- ( DR. SAMUEL PT), LABS FROM DR RODRÍGUEZ REVIEWED BY DR Iraheta [employer] Other Summary Purpose Family History Unknown Family [...] Bilateral ureterolysis Surgeon: Dr. Charlene Rodriguez Resident/Fellow/Other Park Interpretive Specialist: Glory Palacio Anesthesia: general I.V. 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 Reason for Referral SpecialtyDiagnoses / ProceduresReferred By ContactReferred To ContactMR IMAGING Diagnoses Pelvic and perineal pain Procedures MRI FEMALE PELVIS WO/W IVCON MRI PELVIS W/O & W/CONTRAST MATERIAL Charlene Rodriguez DO [address] [facility] [address] [place] [address] Mr Imaging Referral IDStatusReasonJackson DateExpiration DateVisits RequestedVisits [id number] Auto-Generated Referral /[id number] / ProceduresReferred By ContactReferred To [facility] Diagnoses Constipation, unspecified constipation type High-tone pelvic floor dysfunction Diastasis of rectus abdominis Dysmenorrhea Other specified dyspareunia Chronic pelvic pain in female Procedures CONSULT TO PHYSICAL THERAPY PHYSICAL THERAPY EVALUATION HIGH COMPLEX 45 MINS 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, 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 [address] [facility] [address] [place] [address] [facility] [address] [place] [id number] Referral IDStatLulacaterina DateExpiration DateVisits RequestedVisits [id number] Review Auto-Generated Referral / Chief Complaint and Reason for Visit Chief Complaint Admit Date N94.10 N80.9 February 02, 2025 3:1 6pm Additional Source Comments INFORMATION SOURCE (unrecogn ized section and content) DATE CREATED AUTHOR 10/26/2020 [facility] DATE CREATED AUTHOR AUTHOR'S ORGANIZ ATION 11/06/2020 [facility] DATE CREATED AUTHOR AUTHOR'S ORGANIZ ATION 12/17/2020 [facility] DATE CREATED AUTHOR AUTHOR'S ORGANIZ ATION 04/21/2021 [facility] DATE CREATED AUTHOR AUTHOR'S ORGANIZ ATION 06/05/2021 [facility] DATE CREATED AUTHOR AUTHOR'S ORGANIZ ATION 10/02/2021 [facility] DATE CREATED AUTHOR AUTHOR'S ORGANIZ ATION 02/10/2022 [facility] DATE CREATED AUTHOR AUTHOR'S ORGANIZ ATION 12/05/2022 [facility] DATE CREATED AUTHOR AUTHOR'S ORGANIZ ATION 04/30/2024 [facility] DATE CREATED AUTHOR AUTHOR'S ORGANIZ ATION 02/09/2025 [facility] DATE CREATED AUTHOR AUTHOR'S ORGANIZ ATION 03/15/2025 [facility] DATE CREATED AUTHOR AUTHOR'S ORGANIZ ATION 08/03/2025 [facility] DATE CREATED AUTHOR AUTHOR'S ORGANIZ ATION 08/13/2025 [facility] DATE CREATED AUTHOR AUTHOR'S ORGANIZ ATION 08/16/2025 [facility] DATE CREATED AUTHOR AUTHOR'S ORGANIZ ATION 08/20/2025 [facility] DATE CREATED AUTHOR AUTHOR'S ORGANIZ ATION 08/21/2025 [facility] DATE CREATED AUTHOR AUTHOR'S ORGANIZ ATION 08/29/2025 [facility] DATE CREATED AUTHOR AUTHOR'S ORGANIZ ATION 09/12/2025 [facility] DATE CREATED AUTHOR AUTHOR'S ORGANIZ ATION 10/02/2025 [facility] DATE CREATED AUTHOR AUTHOR'S ORGANIZ ATION 10/08/2025 [facility] Care Team (unrecognized sect ion and content) Team MemberRelationshipSpecialtyStart DateEnd Date Denny Rodríguez MD [address] [place] [address] PCP - GeneralFamily Medicine12/03/14Team MemberRelationshipSpecialtyStart DateEnd Date Denny Rodríguez MD [address] [place] [address] PCP - GeneralFamily Medicine12/03/14Team MemberRelationshipSpecialtyStart DateEnd Date Denny Rodríguez MD [address] [place] [address] PCP - GeneralFamily Medicine12/03/14Team MemberRelationshipSpecialtyStart DateEnd Date Denny Rodríguez MD [address] [place] [address] PCP - GeneralFamily Medicine12/03/14Team MemberRelationshipSpecialtyStart DateEnd Date Denny Rodríguez MD [address] [place] [address] PCP - GeneralFamily Medicine12/03/14Team MemberRelationshipSpecialtyStart DateEnd Date Denny Rodríguez MD [address] [place] [address] PCP - GeneralFamily Medicine12/03/14Team MemberRelationshipSpecialtyStart DateEnd Date Denny Rodríguez MD [address] [place] [address] PCP - GeneralFamily Medicine12/03/14Team MemberRelationshipSpecialtyStart DateEnd Date Denny Rodríguez MD [address] [place] [address] PCP - GeneralFamily Medicine12/03/14Team MemberRelationshipSpecialtyStart DateEnd Date Denny Rodríguez MD [address] [place] [phone] PCP - GeneralFamily Medicine12/03/14Team MemberRelationshipSpecialtyStart DateEnd Date Denny Rodríguez MD [address] [place] [address] [facility]12/03/14Team MemberRelationshipSpecialtyStart DateEnd Date Denny Rodríguez MD [address] [place] [address] PCP - [facility] Eofnxvrdmi19/1/21 Denny Rodríguez MD [address] [place] [address] PCP - GeneralFalaly Medicine04/10/23 Denny Rodríguez MD [address] [place] [address] PCP - [facility]02/24/23 Zenobia [facility] NP [address] [place] [address] Nurse [facility]10/05/23 Trista Thao NP [address] [place] [address] Nurse PractitionerPulmonary Lrubcjr55/10/23Team MemberRelationshipSpecialtyStart DateEnd Date Denny Rodríguez MD [address] [place] [phone] PCP - GeneralFamily Medicine12/03/14Team MemberRelationshipSpecialtyStart DateEnd Date Denny Rodríguez MD [address] [place] [phone] PCP - [facility] Centerly Medicine12/03/14Team MemberRelationshipSpecialtyStart DateEnd Date Denny Rodríguez MD [address] [place] [id number] PCP - [facility] Ftqgmudkwx78/1/21 Denny Rodríguez MD [address] [place] [id number] PCP - [facility]02/24/23 Eliceo Beltran DO [address] [place] [address] PCP - Generalmily Medicine02/14/24Team MemberRelationshipSpecialtyStart DateEnd Date Denny Rodríguez MD [address] [place] [address] PCP - [facility] Ukfjtydcwh51/1/21 Denny Rodríguez MD [address] [place] [address] PCP - [facility]02/24/23 Eliceo Beltran DO [address] [place] [address] PCP - [facility] Medicine02/14/24Team MemberRelationshipSpecialtyStart DateEnd Date Denny Rodríguez MD [address] [place] [address] PCP - [facility] Nixfxoreqp30/1/21 Denny Rodríguez MD [address] [place] [address] PCP - [facility]02/24/23 Eliceo Beltran DO [address] [place] [address] PCP - [facility]02/14/24Team MemberRelationshipSpecialtyStart DateEnd Date Denny Rodríguez MD [address] [place] [address] PCP - [facility] Episccgbml30/1/21 Denny Rodríguez MD [address] [place] [address] PCP - [facility]02/24/23 Eliceo Beltran DO [address] [place] [address] PCP - [facility]02/14/24Team MemberRelationshipSpecialtyStart DateEnd Date Denny Rodríguez MD [address] [place] [address] PCP - [facility] Jphbvxginh09/1/21 Denny Rodríguez MD [address] [place] [address] PCP - [facility]02/24/23 Eliceo Beltran DO [address] [place] [address] PCP - GeneralFamily Medicine02/14/24Team MemberRelationshipSpecialtyStart DateEnd Date Denny Rodríguez MD [address] [place] [address] PCP - [facility] Fnhxisrsww71/1/21 Eliceo Beltran DO [address] [place] [address] PCP - Generalmily Medicine02/14/24Team MemberRelationshipSpecialtyStart DateEnd Date Eliceo Beltran DO [address] [place] [address] PCP - GeneralFamily Medicine02/14/24Team MemberRelationshipSpecialtyStart DateEnd Date Eliceo Beltran DO [address] [place] [address] PCP - Generalmily Medicine02/14/24 Team Status: Active Member Role Status Dates Denny Rodríguez MD Primary Care Provider Active Team Status: Inactive Member Role Status Dates Denny Rodríguez MD Primary Care Provider Active S tart: February 02, 2025 End: February 02aminta Pop DOAttending ProviderActiveStart: February 02, 2025 End: February 02, 2025Team MemberRelationshipSpecialtyStart DateEnd Date Eliceo Beltran DO [address] [place] [address] PCP - [facility] Medicine02/14/24 Eliceo Beltran DO [address] [place] [address] PCP - [facility] [employer]07/27/2412Team MemberRelationshipSpecialty Start DateEnd Date Eliceo Beltran DO [address] [place] [address] PCP - [facility] Medicine02/14/24 Eliceo Beltran DO [address] [place] [address] PCP - [facility] [employer]07/27/2412Team MemberRelationshipSpecialty Start DateEnd Date Eliceo Beltran DO [address] [place] [address] PCP - [facility] Medicine02/14/24 Eliceo Beltran DO [address] [place] [address] PCP - [facility] [employer]07/27/2412Team MemberRelationshipSpecialty Start DateEnd Date Eliceo Beltran DO [address] [place] [address] PCP - [facility] Medicine02/14/24 Eliceo Beltran DO [address] [place] [address] PCP - [facility] [employer]07/27/2412Te MemberRelationshipSpecialty Start DateEnd Date Eliceo Beltran, DO [address] [place] [address] PCP - [facility] Medicine02/14/24 Eliceo Beltran, DO [address] [place] [address] PCP - [facility] [employer]07/27/2412Team MemberRelationshipSpecialty Start DateEnd Date Eliceo Beltran, DO [address] [place] [address] PCP - [facility] Medicine02/14/24 Eliceo Beltran, DO [address] [place] [address] PCP - [facility] [employer]07/27/2412Team MemberRelationshipSpecialty Start DateEnd Date Eliceo Beltran, DO [address] [place] [address] PCP - [facility] Medicine02/14/24 Eliceo Beltran, DO [address] [place] [address] PCP - [facility] [employer]07/27/2412Te MemberRelationshipSpecialty Start DateEnd Date Eliceo Beltran, DO [address] [place] [address] PCP - Generalmily Medicine02/14/24 Eliceo Beltran, [address] [place] [address] PCP - [facility] [employer]07/27/2412Team MemberRelationshipSpecialty Start DateEnd Date Eliceo Beltran DO [address] [place] [address] PCP - [facility] Medicine02/14/24 Eliceo Beltran, [address] [place] [address] PCP - [facility] [employer]07/27/2412Team MemberRelationshipSpecialty Start DateEnd Date Eliceo Beltran DO [address] [place] [address] PCP - [facility] Medicine02/14/24 Eliceo Beltran DO [address] [place] [address] PCP - [facility] [employer]07/27/2412Team MemberRelationshipSpecialty Start DateEnd Date Eliceo Beltran DO [address] [place] [address] PCP - [facility] Medicine02/14/24 Eliceo Beltran DO [address] [place] [address] PCP - [facility] [employer]07/27/2412Team MemberRelationshipSpecialty Start DateEnd Date Denny Rodríguez MD [address] [place] [address] PCP - [facility] Medicine12/02/18 MemberRelationshipSpecialtyStart DateEnd Date Denny Rodríguez MD [address] [place] [address] PCP - [facility] Medicine12/02/18 MemberRelationshipSpecialtyStart DateEnd Date Eliceo Beltran, DO [address] [place] [address] PCP - [facility]02/14/24 Eliceo Beltran, DO [address] [place] [address] PCP - [facility] [employer]07/27/2412Te MemberRelationshipSpecialty Start DateEnd Date Eliceo Beltran, DO [address] [place] [address] PCP - [facility]02/14/24 Eliceo Beltran, DO [address] [place] [address] PCP - [facility] [employer]07/27/2412Te MemberRelationshipSpecialty Start DateEnd Date Eliceo Beltran, DO [address] [place] [address] PCP - [facility]02/14/24 Eliceo Beltran, DO [address] [place] [address] PCP - [facility] [employer]07/27/2412Team MemberRelationshipSpecialty Start DateEnd Date Eliceo Beltran DO [address] [place] [address] PCP - GeneralFamily Medicine02/14/24 Eliceo Beltran DO [address] [place] [address] PCP - [facility] [employer]07/27/2412Team MemberRelationshipSpecialty Start DateEnd Date Denny Rodríguez MD [address] [place] [address] PCP - GeneralFamily Medicine12/02/18Team MemberRelationshipSpecialtyStart DateEnd Date Eliceo Beltran DO [address] [place] [address] PCP - GeneralFamily Medicine02/14/24 Eliceo Beltran DO [address] [place] [address] PCP - [facility] [employer]07/27/2412Team MemberRelationshipSpecialty Start DateEnd Date Eliceo Beltran DO [address] [place] [address] PCP - GeneralFamily Medicine02/14/24 Eliceo Beltran DO [address] [place] [address] PCP - [facility] [employer]07/27/2412Team MemberRelationshipSpecialty Start DateEnd Date Denny Rodríguez MD [address] [place] [address] PCP - Generalmily Medicine12/02/18Team MemberRelationshipSpecialtyStart DateEnd Date Denny Rodríguez MD [address] [place] [address] PCP - [facility]ly [facility]12/02/18Team MemberRelationshipSpecialtyStart DateEnd Date Eliceo Beltran DO [address] [place] [address] [facility]/14/24 Eliceo Beltran DO [address] [place] [address] PCP - [facility] [employer]07/27/2412Team MemberRelationshipSpecialty Start DateEnd Date Eliceo Beltran DO [address] [place] [address] PCP - [facility] Medicine02/14/24 Eliceo Beltran DO [address] [place] [address] PCP - [facility] [employer]07/27/2412Team MemberRelationshipSpecialty Start DateEnd Date Denny Rodríguez MD [address] [place] [address] [facility] - [facility]12/02/18Team MemberRelationshipSpecialtyStart DateEnd Date Denny Rodríguez MD [address] [place] [address] PCP - GeneralFamily Medicine12/02/18Team MemberRelationshipSpecialtyStnewark DateEnd Date Denny Rodríguez MD [address] [place] [address] PCP - [facility] Hncvoirnez24/1/ Denny Rodríguez MD [address] [place] [address] PCP - GeneralFamily Medicine Denny Rodríguez MD [address] [place] [address] PCP - [facility] Eliceo Beltran DO [address] [place] [address] PCP - [facility]02/14/24 Eliceo Beltran DO [address] [place] [address] PCP - [facility] [employer]07/27/2412 Zen[facility] NP [address] [place] [address] Nurse PractitionerFamily Mcgnymiq03/10/235 Trista Thao NP [address] [place] [address] Nurse PractitionerPulmonary Myilgyd81/10/235Team MemberRelationship SpecialtyStart DateEnd Date Eliceo Beltran DO [address] [place] [address] PCP - GeneralFamily Medicine02/14/24 Eliceo Beltran [address] [place] [address] PCP - [facility] [employer]07/27/2412Team MemberRelationshipSpecialty Start DateEnd Date Denny Rodríguez MD [address] [place] [address] PCP - GeneralFamily Medicine12/02/18 Source Comments (unrecognize d section and content) In the event this informatio n is protected by the Federal Confidentiality of Alcohol and Drug Abuse Patient Records regulations: The Federal rules restrict any use of the information to criminally investigate or prosecute any alcohol or drug abuse patient.[facility] the event this information is protected by the Federal Confidentiality of Alcohol and Drug Abuse Patient Records regulations: The Federal rules restrict any use of the information to criminally investigate or prosecute any alcohol or drug abuse patient.[facility] HospitalIn the event this information is protected by the Federal Confidentiality of Alcohol and Drug Abuse Patient Records regulations: The Federal rules restrict any use of the information to criminally investigate or prosecute any alcohol or drug abuse patient.[facility] HospitalIn the event this information is protected by the Federal Confidentiality of Alcohol and Drug Abuse Patient Records regulations: The Federal rules restrict any use of the information to criminally investigate or prosecute any alcohol or drug abuse patient.[facility] HospitalIn the event this information is protected by the Federal Confidentiality of Alcohol and Drug Abuse Patient Records regulations: The Federal rules restrict any use of the information to criminally investigate or prosecute any alcohol or drug abuse patient.[facility] HospitalIn the event this information is protected [...] or prosecute any alcohol or drug abuse patient.[facility] HospitalIn the event this information is protected by the Federal Confidentiality of Alcohol and Drug Abuse Patient Records regulations: The Federal rules restrict any use of the information to criminally investigate or prosecute any alcohol or drug abuse patient.[facility] HospitalIn the event this information is protected by the Federal Confidentiality of Alcohol and Drug Abuse Patient Records regulations: The Federal rules restrict any use of the information to criminally investigate or prosecute any alcohol or drug abuse patient.[facility] HospitalIn the event this information is protected by the Federal Confidentiality of Alcohol and Drug Abuse Patient Records regulations: The Federal rules restrict any use of the information to criminally investigate or prosecute any alcohol or drug abuse patient.[facility] HospitalIn the event this information is protected by the Federal Confidentiality of Alcohol and Drug Abuse Patient Records regulations: The Federal rules restrict any use of the information to criminally investigate or prosecute any alcohol or drug abuse patient.[facility] HospitalIn the event this information is protected by the Federal Confidentiality of Alcohol and Drug Abuse Patient Records regulations: The Federal rules restrict any use of the information to criminally investigate or prosecute any alcohol or drug abuse patient.[facility] HospitalIn the event this information is protected by the Federal Confidentiality of Alcohol and Drug Abuse Patient Records regulations: The Federal rules restrict any use of the information to criminally investigate or prosecute any alcohol or drug abuse patient.[facility] HospitalIn the event this information is protected by the Federal Confidentiality of Alcohol and Drug Abuse Patient Records regulations: The Federal rules restrict any use of the information to criminally investigate or prosecute any alcohol or drug abuse patient.[facility] HospitalIn the event this information is protected by the Federal Confidentiality of Alcohol and Drug Abuse Patient Records regulations: The Federal rules restrict any use of the information to criminally investigate or prosecute any alcohol or drug abuse patient.[facility] Reason for Visit (unrecogniz ed section and content) ReasonCommentsMenstrual ProblemReasonCommentsVaginal BleedingReasonComments EndometriosisReasonCommentsInsurance AuthorizationOrilissaReasonCommentsPelvic PainSpecialtyDiagnoses / ProceduresReferred By ContactReferred To ContactOB/SLD INCLUSION TEACHER / GYNECOLOGY Diagnoses Painful menstrual periods Painful Periods Procedures OFFICE/OUTPATIENT ESTABLISHED SF MDM 10-19 MIN EST WHI PATIENT Jihan Downs, 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 [address] [place] [id number] Jihan Downs, 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 [address] [place] [id number] Referral IDStatusReasonStart DateExpiration DateVisits RequestedVisits [id number] MRI SpecialtyDiagnoses / ProceduresReferred By ContactReferred To ContactMR IMAGING Diagnoses Pelvic and perineal pain Procedures MRI FEMALE PELVIS WO/W IVCON MRI PELVIS W/O & W/CONTRAST MATERIAL Charlene Rodriguez DO [address] [facility] [address] [place] [address] Mr Imaging [place] [address] Referral IDStatusReasonStart DateExpiration DateVisits RequestedVisits [id number] Auto-Generated Referral /[id number] DateCommentsRefill Qkljjdu4101/02/2024eason CommentsMenorrhagiaCramping with bleedingReasonCommentsSurgery Cancelled SpecialtyDiagnoses / ProceduresReferred By ContactReferred To Contact Diagnoses Preeclampsia, severe, third trimester Procedures O14.13 - Preeclampsia, severe, third trimester Kathe Ryder, [address] [place] [address] [facility] [address] [place] [address] Referral IDStatusReasonStart DateExpiration DateVisits RequestedVisits [id number] Pressure CheckReasonCommentsDysmenorrhea ReasonCommentsWell Women VisitReasonCommentsShoulder PainReasonCommentsPainful IntercourseReasonCommentsAmenorrheaReasonCommentsRoutine VisitReason CommentsGestational DiabetesSpecialtyDiagnoses / ProceduresReferred By Contact Referred To ContactMaternal and Medicine Diagnoses Gestational diabetes mellitus (GDM) in second trimester, gestational diabetes method of control unspecified Nathan Pop, DO [address] [place] [address] [place] [address] Phone: tel: fax: Maternal- Medicine at [facility] [address] [place] [address] Phone: tel: fax: Referral IDStatusReasonStart DateExpiration DateVisits RequestedVisits [id number] Review Specialty Services Required /[id number] consult Scheduled Active and Recently Administ ered [...] every 2-3 minutes with cervical changes or [place] units (MVU) greater than 200 in a [...] RN) * 0551 (Given - Provider: Lani Farga, RN) * 1221 (Given - Provider: Alejandra [...] BE BASED ON THE PRIMARY CLINICAL RECORDS. [employer] provides no warranty or guarantee of the accuracy or completeness of information in this document.
[2025-10-13 20:53] VITALS: BP 124/73; PULSE 96
[2025-10-13] MEDS: BETAMETHASONE ACE/BETAMETHASONE SOD PHOS 30 MG/5 ML 12 MG IM (20:58)
== END 2025-10-13 21:20 | disposition home or self-care (01) ==
LOC: FBCO 20:35 → FBC 20:40
PROVIDERS: Family Provider Family Medicine; PCP Family Medicine; Visit Provider Obstetrics & Gynecology
DX: O26.893 Other specified pregnancy related conditions, third trimester (principal); Z3A.33 33 weeks gestation of pregnancy
CPT/HCPCS: 96372; J0702

== ENCOUNTER 2025-10-14 16:18 | Outpatient (OUT) | payer OTHER, SELFPAY ==
--- OUTSIDE RECORDS SUMMARY | 2025-09-30 15:00 | XMS_ITS | Encounter Summary ---
Author Organization [facility] Address [address] [place] [address] Care Team Providers Care Automotive Quality Manager Name Role Phone CharlotteEliceo medina Primary Care Provider Charlottecarol Eliceo Hurtado DO Unavailable [phone] Reason for Visit * ReasonCommentsRoutine Visit Encounter Details DateTypeDepartmentCare Team (Latest Contact Info)Mpijqqosgmo38/05/2025 3:00 PM ESTRoutine [facility] [address] [place] [id number] Nathan Pop DO [address] [place] [id number] Third trimester ([facility]); 31 weeks gestation of ([facility]); Pre-eclampsia in third trimester ([facility]) Social History Tobacco UseTypesPacks/DayYears UsedDateSmoking Tobacco: NeverSmokeless Tobacco: NeverAlcohol UseStandard Drinks/WeekCommentsNever0 (1 standard drink = 0.6 oz pure alcohol)caffeine: 1-2 cups per day, coffee and [id number] Health Literacy AnswerDate RecordedHow often do you [...] relatives?Once a week12/29/2024How often do you attend denominational or mu-ism services?Patient ckuencwo57/03/2025Do you belong to any clubs or organizations such as denominational groups, unions, [employer] or athletic leodan ups, or school groups?No12/29/2024How often do you attend meetings of the clubs or organizations you belong to?Patient ltnyqsph10/03/2025re you , , , , never , [...] Questionnaire-2 Score0 07/30/2025[facility] - Occupational Stress QuestionnaireAnswerDate RecordedDo you feel stress - tense, restless, nervous, or anxious, or unable to sleep at night because yourmind is troubled all the time - these days?Only a okuxfb3212/29/2024Exercise Vital SignAnswerDate Recorded On average, how many [...] steady place to sleep or slept in [facility] (including now)?No09/19/2023Housing Stability Vital SignAnswerDate RecordedIn the last 12 months, was there a time when you were not able to pay the mortgage or rent on time?No12/29/2024Number of Times Moved in the Last YearNot on file12/29/2024t any time in the past 12 months, were you homeless or living in a alf (including now)?No12/29/2024 EducationAnswerDate RecordedWhat is the highest level of school you have completed or the highest degree you have received?High school rsqoltps89/29/2023 Estimated Date of WlmgnmivNrguqbdaIqw20/03/2026ased on last menstrual period of 02/21/2025Sex and Gender InformationValueDate RecordedSex Assigned at BirthNot on fileLegal WroIclqgf79/15/2023 7:18 PM EDTGender IdentityNot on file Sexual OrientationNot on 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 Not on fileNot on fileNot on filedocumented as of this encounter Last Filed Vital Signs Vital SignReadingTime TakenCommentsBlood Gkfcxvhq833/8211 3:04 PM EST Pulse--Temperature--Respiratory Rate--Oxygen Saturation--Inhaled Oxygen Concentration--Hxqsnz17.3 kg (166 lb)09/30/2025 3:04 PM ESTHeight--Body Mass [...] John San infection GDM (gestational diabetes mellitus) ([facility]) Headache History of menstrual cramps ([facility]) Varicella zoster Visual impairment HISTORY PAST MEDICAL HISTORY SOCIAL HISTORY Past Medical History: Diagnosis Date Amenorrhea d/t oral contraceptive pills Endometriosis John San infection GDM (gestational diabetes mellitus) ([facility]) Headache History of menstrual cramps severe Hypertension ([facility]) x1 Varicella zoster unsure Visual [...] History: Procedure Laterality Date APPENDECTOMY 05/2016 at [facility] [place] [facility] 12/2022 [...] nursing note reviewed. Exam conducted with a edge drummer present. Vitals: Estimated body mass index is 30.36 kg/m?? as calculated from the following: Height as of 07/30/25: 5' 2 . Weight as of this encounter: 166 lb. BP: 140/82 Patient's last menstrual period was 02/21/2025. Assessment/Plan ICD-10-CM 1. Third trimester ([facility]) Z34.93 POCT urinalysis dipstick manually resulted 2. 31 weeks gestation of ([facility]) Z3A.31 3. Pre-eclampsia in third trimester ([facility]) O14.93 Return OB: Patient presents today for [...] Plan of Treatment DateTypeDepartmentCare Team (Latest Contact Info)Tdwapbnkozj96/04/2025 9:00 AM ESTRoutine [facility] [address] [place] [address] Nathan Pop DO [address] [place] [address] documented as of this encounter Procedures Procedure NamePriorityDate/TimeAssociated DiagnosisCommentsPOCT URINALYSIS NSJODFRHFwhdgen75/05/2025 3:13 PM EST Third trimester ([facility]) documented in this encounter Results * [...] gestation of ([facility]) Pre-eclampsia in third trimester ([facility]) documented in this encounter Care Teams Team MemberRelationshipSpecialtyStart DateEnd Date Eliceo Beltran DO [address] [place], [place] [address] PCP - GeneralFamily Medicine02/14/24 Eliceo Beltran DO [address] [address] PCP - Medical Louise Commercial07/27/2412documented as of this encounter
--- OUTSIDE RECORDS SUMMARY | 2025-10-06 14:30 | XMS_ITS | Encounter Summary ---
Author Organization [facility] tem Address [id number] [address] [place] [address] Care Team Providers Care Executive Admin Name Role Phone Cruz Rodríguez MD Primary Care Provider [phone] Encounter Details DateTypeDepartmentCare Team (Latest Contact Info)Byicyukzray69/11/2025 2:30 PM ESTTelemedicine Maternal- Medicine at [facility] [address] [place] [address] Kayleigh Rizzo PALuis Angel [address] [address] Insulin controlled gestational diabetes mellitus (GDM) in [...] or more drinks on one occasion?Never5ChildcareAnswer Date UbdtdtvnWcgpxdhibQivltvj19/13/2019EmploymentAnswerDate RecordedEmployment Rsviwef4305/08/2019Hunger ScreeningAnswerDate RecordedWithin the past 12 months we worried whether our food would run out before we got money to buy more.Never True09/10/2025Within the past 12 months the food we bought just didn't last and we didn't have money to get more.Never True09/10/2025Purpose - LifeAnswerDate RecordedPurpose and direction in onpeGiwwoow57/11/2021Estimated Date of BsxlgjcjQqdzdtgxRva96/03/2026Based on last menstrual period of 02/21/2025 (Exact Date)Sex and Gender InformationValueDate RecordedSex Assigned at BirthNot on fileLegal TxnHqcmwm48/07/2019 2:55 PM ESTGender IdentityNot on fileSexual OrientationNot on filedocumented as of this encounter Progress Notes * Kalyeigh Rizzo PA-C - 10/06/2025 2:30 PM EST Maternal- Medicine Consultation VIDEO Patient is present at work, provider present at [facility] HISTORY OF PRESENT ILLNESS: Driss [...] values to us weekly by e-mail to: [email or web address] or by fax to: [phone] Kayleigh Rizzo PA-C Maternal- Medicine Office phone: [phone] Kayleigh Rizzo PA-C 10/06/25 0042 documented in this encounter Plan of Treatment DateTypeDepartmentCare Team (Latest Contact Info)Hvasltakrla14/03/2025 11:00 AM ESTAppointment Maternal Medicine [place] [address] [place] [address] 11/03/2025 2:30 PM ESTOffice Visit Maternal- Medicine at [facility] [address] [place] [address] Kayleigh Rizzo, PALuis Angel [address] [address] documented as of this encounter Visit Diagnoses Diagnosis Insulin controlled gestational diabetes mellitus (GDM) in third trimester- Primary Essential hypertension affecting in third trimester documented in this encounter Care Teams Team MemberRelationshipSpecialtyStart DateEnd Date Cruz Rodríguez MD [address] [place] [address] PCP - GeneralFamily Medicine12/02/18documented as of this encounter
--- OUTSIDE RECORDS SUMMARY | 2025-10-14 15:30 | XMS_ITS | Encounter Summary ---
Author Organization [facility] Address [address] [place] [address] Care Team Providers Care Demolition Worker Name Role Phone CharlotteEliceo medina Primary Care Provider [phone] Charlottecarol Eliceo Hurtado DO Unavailable [phone] Encounter Details DateTypeDepartmentCare Team (Latest Contact Info)Vozbqmesmnw54/19/2025 3:30 PM ESTRoutine [facility] [address] [place] [address] Nathan Pop DO [address] [facility] [address] [place], [facility] 33 weeks gestation of ([facility]); Third trimester ([facility]) Social History Tobacco UseTypesPacks/DayYears UsedDateSmoking Tobacco: NeverSmokeless Tobacco: NeverAlcohol UseStandard Drinks/WeekCommentsNever0 (1 standard drink = 0.6 oz pure alcohol)caffeine: 1-2 cups per day, coffee and [id number] Health Literacy AnswerDate RecordedHow often do you [...] relatives?Once a week12/29/2024How often do you attend bahai or hindu services?Patient /03/2025Do you belong to any clubs or organizations such as bahai groups, unions, fraElationEMR or athletic leodan ups, or school groups?No12/29/2024How often do you attend meetings of the clubs or organizations you belong to?Patient lpeflxdw60/03/2025re you , , , , never , [...] Health Questionnaire-2 Score0 07/30/2025[facility] [place] of Occupational Health - Occupational Stress QuestionnaireAnswerDate RecordedDo you feel stress - tense, restless, nervous, or anxious, or unable to sleep at night because yourmind is troubled all the time - these days?Only a ovvcpf7512/29/2024Exercise Vital SignAnswerDate Recorded On average, how many [...] steady place to sleep or slept in [facility] (including now)?No09/19/2023Housing Stability Vital SignAnswerDate RecordedIn the [...] the highest degree you have received?High school nuwgcgyv26/29/2023 Estimated Date of TtpaiwtfPqhjawweWbw80/03/2026ased on last menstrual period of 02/21/2025Sex and Gender InformationValueDate RecordedSex Assigned at BirthNot on fileLegal MbkWvilep15/15/2023 7:18 PM EDTGender IdentityNot on file Sexual OrientationNot on 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 Not on fileNot on fileNot on filedocumented as of this encounter Last Filed Vital Signs Vital SignReadingTime TakenCommentsBlood Unhpcoxt243/8410/14/2025 3:29 PM EST Pulse--Temperature--Respiratory Rate--Oxygen Saturation--Inhaled Oxygen Concentration--Qshytt91.3 kg (168 lb 1.9 oz)10/14/2025 3:29 PM ESTHeight--Body Mass Index30.75007/30/2025 3:36 PM EDTdocumented in this encounter Plan of Treatment DateTypeDepartmentCare Team (Latest Contact Info)Vqopcgjkzwc24/04/2025 9:00 AM ESTRoutine [facility] [address] [address] Nathan Pop DO [address] [facility] [place] [address] documented as of this encounter Procedures Procedure NamePriorityDate/TimeAssociated DiagnosisCommentsPOCT URINALYSIS RGKZUQWEAolskwr55/19/2025 3:40 PM EST 33 weeks gestation of ([facility]) Third trimester ([facility]) documented in this encounter Results * (ABNORMAL) POCT urinalysis dipstick manually resulted (10/14/2025 3:40 PM EST) ComponentValueRef RangeTest MethodAnalysis TimePerformed AtPathologist SignatureColor, UAYellowClarity, UAClearGlucose, UANegativeNegative - 1999(110) ++++ mg/dLBilirubin, UANegativeNegative - 4(70) +++ mg/dLKetones, UA PositiveNegative - 160(16) ++++ mg/dLSpec Grav, UA1.0201 - 1.03Blood, UA NegativeNegative - 50 Teodoro/mcLpH, UA6.05 - 9Protein, UATraceNegative - 2000(20) ++++ mg/dLUrobilinogen, UA0.20.2 - 12 mg/dLLeukocytes, UANegativeNegative - 500+++ Robinson/mcLNitrite, UANegativeNegative - PositiveSpecimen (Source) Anatomical Location / LateralityCollection Method / VolumeCollection Time Received KnboLuqwa23/19/2025 3:40 PM EST Narrative Authorizing ProviderResult TypeResult StatusCorey Kiesha DOPOINT OF CARE TEST ENTER/EDIT ORDERABLESFinal Result documented in this encounter Visit Diagnoses Diagnosis 33 weeks gestation of ([facility]) Third trimester ([facility] state, incidental documented in this encounter Care Teams Team MemberRelationshipSpecialtyStart DateEnd Date Eliceo Beltran DO [address] [place] [address] PCP - GeneralFamily Medicine02/14/24 Eliceo Beltran DO [address] [place] [address] PCP - Medical [employer]07/27/2412documented as of this encounter
--- OUTSIDE RECORDS SUMMARY | 2025-10-14 16:23 | XMS_ITS | Encounter Summary ---
Author Organization [facility] Address [address] [place] [address] Care Team Providers Care Three Dimensional Map Modeler Name Role Phone Eliceo Beltran DO Primary Care Provider [phone] CharlottegeovaniEliceo kauffman Unavailable [phone] Encounter Details DateTypeDepartmentCare Team (Latest Contact Info)Xipumkqferd74/08/2025Clinisync Result Encounter [facility] Unsolicited Steph Keane, DEVYN [address] [facility] [place] [address] Social History Tobacco UseTypesPacks/DayYears UsedDateSmoking Tobacco: NeverSmokeless Tobacco: NeverAlcohol UseStandard Drinks/WeekCommentsNever0 (1 standard drink = 0.6 oz pure alcohol)caffeine: 1-2 cups per day, coffee and [id number] Health Literacy AnswerDate RecordedHow often do you [...] relatives?Once a week12/29/2024How often do you attend samaritan or druze services?Patient uwzpjugg44/03/2025Do you belong to any clubs or organizations such as samaritan groups, unions, I[employer]le or athletic leodan ups, or school groups?No12/29/2024How often do you attend meetings of the clubs or organizations you belong to?Patient mbcebuef21/03/2025re you , , , , never , [...] RecordedPatient Health Questionnaire-2 Score0 07/30/2025[facility] [place] of Occupational Health - Occupational Stress QuestionnaireAnswerDate RecordedDo you feel stress - tense, restless, nervous, or anxious, or unable to sleep at night because yourmind is troubled all the time - these days?Only a kodowo5012/29/2024Exercise Vital SignAnswerDate Recorded On average, how many [...] the highest degree you have received?High school qluqfweb27/29/2023 Estimated Date of BmnbqzlpVcgnwmsbEhm78/03/2026ased on last menstrual period of 02/21/2025Sex and Gender InformationValueDate RecordedSex Assigned at BirthNot on fileLegal CrdNlneow00/15/2023 7:18 PM EDTGender IdentityNot on file Sexual OrientationNot on 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 Not on fileNot on fileNot on filedocumented as of this encounter Plan of Treatment DateTypeDepartmentCare Team (Latest Contact Info)Omrkdkkzvdk61/04/2025 9:00 AM ESTRoutine [facility] [place] [facility] [address] [place] [phone] Nathan Pop, DO [address] [place] [address] documented as of this encounter Procedures Procedure NamePriorityDate/TimeAssociated DiagnosisCommentsUS OB BPP W NON-GZIUTE0310/03/2025 11:36 AM EST documented in this encounter Results * US OB BPP W NON-STRESS (10/03/2025 11:36 AM EST)Anatomical Region LateralityModalityOtherSpecimen (Source)Anatomical Location / Laterality Collection Method / VolumeCollection TimeReceived Time10/03/2025 11:36 AM EST Narrative 10/03/2025 11:38 AM EST [facility] ?[address] ? [place] [address] ? Ultrasound Report ? Signed ? Patient: DRISS GAMA ?MR#: [id number] ?? : 1995 ?Acct:[id number] ?? Age/Sex: 30 / F ?ADM Date: 10/03/25 ?? Loc: US ? Attending Dr: Steph Keane ? Ordering Physician: Steph Keane ?? Date of Service: 10/03/25 ?? Procedure(s): US OB BPP w non-stress ?? Accession Number(s): [id number] ? cc: Steph Keane; Yomaira BELTRAN ? [facility] ? [address] ? [place] [address] ? Patient Name: ?? DRISS Sanchez JAYY ? MRN: [id number] ? date: 1995 ?Sex: F ?? Assigned Patient Location: [place] ?? Current Patient Location: ? Accession/Order Number: [id number] ?? Exam Date: 10/03/2025 ??10:53 ?Report Date: [...] Dictation Location: RADIO-PC-17 ? Electronically authenticated by: [id number] ??Y ?? Date: 10/03/2025 ??11:36 ? Dictated By: ?Will Faria M.D. ? Signed By: ?10/03/25 1138 ? DD/ 1136 ? TD/TT: ? Automotive Service Advisor: Procedure Note Radiology, Radiologist, - 10/03/2025 [place] [address] Ultrasound Report Signed Patient: DRISS GAMA MMR#: [id number] : 1995Acct:[id number] Age/Sex: 30 / FADM Date: 10/03/25 Loc: [place] Attending Dr: Steph Keane Ordering Physician: Steph Keane Date of Service: 10/03/25 Procedure(s): US OB BPP w non-stress Accession Number(s): [id number] cc: Steph Keane; Yomaira BELTRAN The [address] [address] Patient Name: DRISS GAMA MRN: [id number] date: 1995 Sex: F Assigned Patient Location: [place] Current Patient Location: Accession/Order Number: [id number] Exam Date: 10/03/2025 10:53 Report Date: 10/03/2025 [...] Faria M.D. 10/03/2025 11:36 AM Dictation Location[facility] Electronically authenticated by: [id number] Y Date: 1:36 Dictated By: Will Faria M.D. Signed By:10/03/25 1138 DD/ 1136 TD/TT: Automotive Service Advisor: Authorizing ProviderResult TypeResult StatusClintmelissa Lakhwinder NPCLINISYNC IMAGING Final Result documented in this encounter Visit Diagnoses Not on filedocumented in this encounter Care Teams Team MemberRelationshipSpecialtyStart DateEnd Date Eliceo Beltran DO [address] [place] [address] PCP - GeneralFamily Medicine02/14/24 Eliceo Beltran DO [address] [place] [address] PCP - Medical [place] [employer]/documented as of this encounter
--- OUTSIDE RECORDS SUMMARY | 2025-10-14 16:23 | XMS_ITS | Clinical Summary ---
Author Organization [facility] Address [address] [place] [address] Care Team Providers Care Conductor [address] Freight Name Role Phone Eliceo Beltran DO Primary Care Provider [phone] Eliceo Beltran DO Unavailable [phone] Allergies No known active allergies Medications MedicationSigDispense QuantityRefillsLast FilledStart DateEnd DateStatus metoprolol succinate XL (Toprol-XL) 25 MG 24 hr tablet Indications:Hypertension, unspecified typeTake 1 tablet by mouth daily 90 tablet 5Active Vit-Fe Fumarate-FA ( Vitamins) 28-0.8 MG tablet Indications:, unspecified gestational age ([facility]),Encounter for supervision of normal first in first trimester ([facility])Take 1 tablet by mouth Daily 30 tablet 110/6Active Alcohol Swabs (Alcohol Prep Pad) 70 % pads Indications:Gestational diabetes mellitus (GDM), antepartum, gestational diabetes method of control unspecified([facility]),Elevated glucose tolerance test Apply 1 Pad topically Daily Use four times daily to check FSBS. 150 each 5Active Blood Glucose Monitoring Suppl (D-Care Glucometer) w/Device kit Indications:Gestational diabetes mellitus (GDM), antepartum, gestational diabetes method of control unspecified([facility]),Elevated glucose tolerance test1 kit Daily Use four [...] Inject 13 Units under the skin at cgubizx27/21/2025Active Lancets Ultra Thin misc Indications:Gestational diabetes mellitus (GDM), antepartum, gestational diabetes method of control unspecified([facility]),Elevated glucose tolerance test1 each by In Vitro route Daily Use to check FSBS four times daily 150 each Expired Glucose Blood (Blood Glucose Test) strip Indications:Gestational diabetes mellitus (GDM), antepartum, gestational diabetes method of control unspecified([facility]),Elevated glucose tolerance test1 strip by In Vitro route Daily Use in the morning prior to breakfast, 1 hour after each meal for atotal of 4times daily. 150 strip Expired ykvjeyausa-nwbybvz-bavabkbf (Fiorinal) 50-325-40 MG capsule Take 1 capsule by mouth every 4 (four) hours if jknpzm6909/16/2025Discontinued cetirizine (ZyrTEC) 10 MG tablet Take 10 mg by mouth in the morning.09/16/2025Discontinued Ferrous Sulfate (IRON PO) Take 1 tablet by mouth in the morning.09/16/2025Discontinued fluticasone (Flonase) 50 MCG/ACT nasal spray Administer 1 spray into affected nostril(s) in the morning.09/16/2025 Discontinued Active Problems ProblemNoted DateDiagnosed Date33 weeks gestation of ([facility]) 10/14/2025Third trimester ([facility])10/14/20253659Nqgynvaw20/29/2025 Tuxvubfewpi93/26/2024Obesity (BMI 30-39.9)02/19/2024cquired equinus deformity of foot03/29/2023isplacement of cervical intervertebral disc without myelopathy 03/29/20236048Nwjlxztuwpra30/04/1222Ylhlicwcdyepn72/04/5752Xydrbzixoiivr80/04/2023 Lvjdsutmqgfv33/04/2023 Assessment & Plan (07/30/2025 4:00 PM EDT): Record Blood Pressures 2-4 times weekly and record. Return with readings at next appointment. Call with readings if sees significant changes Intractable migraine without aura and with status zguophdcqxi34/04/2023Migraines 03/29/2023hronic pelvic pain in kppzga3403/29/2023ain in female genitalia on dxqwamysgwr48/04/2023ain on bhmjtprieh52/04/2023anic pswlayif32/04/2023 Patellofemoral disorders, left knee03/29/2023atellofemoral disorders, right knee03/29/2023osterior calcaneal nhjolyqlw13/04/2023Scapular dyskinesis 03/29/20239014Nhzpiwlcv92/04/2023Seasonal allergic rhinitis due to msqjcn8303/29/2023 Tachycardia, odnxgawvph03/04/2023Tension /04/2023Vitamin B12 ehfzqslhnb93/04/2023Vitamin D pvtdbybpxb57/04/2023hronic right shoulder pain 03/29/2023Estimated Date of QvfpenwqDbgqckrbLzz41/03/2026Based on last menstrual period of 02/21/2025 Encounters DateTypeDepartmentCare SdehFdiaupwgenj82/19/2025 3:30 PM ESTRoutine [facility] [address] [place] [address] Jony Pop, DO 33 weeks gestation of ([facility]); Third trimester ([facility])5Bamboo flowsheet [facility] [address] [place] [address] Jony Pop, DO 10/13/20251100Ijdgcd94/17/2025Clinisync Result Encounter NOMS External Department Unsolicited Jony Pop, DO 5Clinisync Result Encounter NOMS External Department Unsolicited Jony Pop, DO 5Abstract [facility] [address] [place] [address] Jony Pop, DO 5Clinisync Result Encounter NOMS External Department Unsolicited Steph Keane, DEVYN 10/01/2025Telephone [facility] [address] [place] [address] Jony Pop, DO 09/30/2025 3:00 PM ESTRoutine [facility] [address] [place] [address] Jony Pop, DO Third trimester ([facility]); 31 weeks gestation of ([facility]); Pre-eclampsia in third trimester ([facility])09/30/2025amboo flowsheet [facility] [address] [place] [address] Jony Pop, DO 5Clinisync Result Encounter NOMS External Department Unsolicited Steph Keane, DEVYN 09/23/20259369Elrfsg22/25/2025linisync Result Encounter NOMS External Department Unsolicited Steph Keane, FARM IMPLEMENT ENGINE MECHANIC 09/16/2025 3:20 PM EDTRoutine [facility] [address] [place] [address] Jony Pop, DO 29 weeks gestation of ([facility]); Third trimester ([facility]); Hypertension affecting , antepartum ([facility]); Gestational diabetes mellitus (GDM), antepartum, gestational diabetes method of control unspecified([facility])09/16/2025amboo flowsheet [facility] [address] [address] Jony Pop, DO 09/11/2025bstract [facility] [address] [address] Jony Pop, DO 09/09/20259486Cisvna16/09/2025 3:50 PM EDTRoutine [facility] [address] [place] [address] Steph Keane NP Hypertension affecting , antepartum ([facility]) (Primary Dx); 27 weeks gestation of ([facility]); Second trimester ([facility])09/03/2025linisync Result Encounter NOMS External Department Unsolicited Jony Pop, DO 09/03/2025amboo flowsheet [facility] [address] [place] [address] Steph Keane NP 09/02/20257266Oxmesg81/04/2025linisync Result Encounter NOMS External Department Unsolicited Steph Keane NP 08/28/2025bstract [facility] [place] [facility] [address] [place] [address] Eliceo Beltran DO 08/28/2025Telephone [facility] [address] [place] [address] Radha Rahman MA 08/27/2025 3:20 PM EDTRoutine [facility] [address] [place] [address] Steph Keane NP 26 weeks gestation of ([facility]); Second trimester ([facility]); induced hypertension, antepartum ([facility]); Gestational diabetes mellitus (GDM) in second trimester, gestational diabetes method of control unspecified ([facility])08/27/2025linisync Result Encounter [facility]OM[facility] External Department Unsolicited Steph Keane NP 08/27/2025linisync Result Encounter NOMS External Department Unsolicited Steph Keane NP 08/27/2025amboo flowsheet [facility] [address] [place] [address] Steph Keane, DEVYN 08/25/2025linisync Result Encounter NOMS External Department Unsolicited Provider, Generic External Data 08/20/2025bstract [facility] [address] [place] [address] Jony Pop, DO 08/20/2025Telephone [facility] [address] [place] [address] Steph Keane, FARM IMPLEMENT ENGINE MECHANIC 08/17/2025bstract [facility] [address] [place] [address] Eliceo Beltran, DO 08/17/2025bstract [facility] [address] [place] [address] Eliceo Beltran, DO 08/17/2025Telephone [facility] [address] [place] [address] Jony Pop, DO 08/12/2025 2:40 PM EDTRoutine [facility] [address] [place] [address] Jony Pop, DO 24 weeks gestation of ([facility]); Second trimester ([facility]); Elevated glucose tolerance test08/12/2025 2:00 PM EDTAncillary Procedure [facility] [address] [place] [address] Encounter for follow-up ultrasound of anatomy ([facility])08/12/2025Telephone [facility] [address] [place] [address] Bill Gould LPN Sadtcpt4008/12/2025bstract [facility] [address] [place] [address] Eliceo Beltran, 08/04/2025Telephone [facility] [address] [place] [address] Bill Gould LPN Mcpwwro6407/30/2025 3:40 PM EDTOffice Visit [facility] [address] [place] [address] Eliceo Beltran DO Wellness examination (Primary Dx); Hypertension, unspecified type ; Lipid oclqepbou29/04/2025amboo flowsheet [facility] [address] [place] [address] Eliceo Beltran, 07/30/20258803Hvkfya68/26/2025Telephone [facility] [address] [address] Jony Pop DO 07/15/2025 3:30 PM EDTRoutine [facility] [address] [place] [address] Jony Pop DO 20 weeks gestation of ([facility]); Second trimester ([facility]); Diabetes mellitus ooskntxpp83/20/2025 2:30 PM EDTAncillary Procedure [facility] [address] [place] [address] Screening, , for anatomic survey ([facility])5Clinisync Result Encounter [facility] External Department Unsolicited Jony Pop DO from Last 3 Months Immunizations ImmunizationAdministration DatesNext DueDTP / HiB08/01/1996,1995, 1995DTaP, Jhffwposdep60/08/2000,12/29/1997HPV, Watqrqdwycjb49/17/2014, 05/04/2014,2014Hep A, Adult09/11/2014,2014Hep B, Adolescent or Gbhnvxoxw50/06/1996,1995,1995IPV05/03/2000Influenza, seasonal, injectable, preservative free09/11/2014MMR05/03/2000,08/01/1996Meningococcal OKT5N0104/03/2007OPV08/01/1996,1995,1995Tdap2014 Family History Medical HistoryRelationNameCommentsAnemiaFatherColon cancerFatherCancerMaternal GrandfatherbutchHypertensionMaternal GrandfatherbutchBreast cancerMaternal GrandmotherHypertensionMotherdarleneColon cancerPaternal GrandfatherRelationName StatusCommentsFatherDeceasedMaternal GrandfatherbutchMaternal GrandmotherMother darleneAlivePaternal GrandfatherPaternal GrandmotherAlive Social History Tobacco UseTypesPacks/DayYears UsedDateSmoking Tobacco: NeverSmokeless Tobacco: Never Tobacco Cessation:Counseling Given: Not Answered Alcohol UseStandard Drinks/WeekCommentsNever0 (1 standard drink = 0.6 oz pure alcohol)caffeine: 1-2 cups per day, coffee and hqhW8880 Health LiteracyAnswer Date RecordedHow often do you [...] week12/29/2024How often do you attend christian or mosque services?Patient tdzmyuue15/03/2025Do you belong to any clubs or organizations such as christian groups, unions, fraternal or athletic leodan ups, or school groups?No12/29/2024How often do you attend meetings of the clubs or organizations you belong to?Patient wiheditw54/03/2025re you , , , , never , [...] RecordedPatient Health Questionnaire-2 Score0 07/30/2025[facility] [place] [facility] - Occupational Stress QuestionnaireAnswerDate RecordedDo you feel stress - tense, restless, nervous, or anxious, or unable to sleep at night because yourmind is troubled all the time - these days?Only a fivunm0512/29/2024Exercise Vital SignAnswerDate Recorded On average, how many [...] or from getting things needed for daily living?12/29/2024Housing Stability Vital SignAnswerDate RecordedIn the last 12 [...] the highest degree you have received?High school pybnpvbu11/29/2023 Estimated Date of BflgpbobFucudhzxRxu29/03/2026ased on last menstrual period of 02/21/2025Sex and Gender InformationValueDate RecordedSex Assigned at BirthNot on fileLegal AzzHxypdc63/15/2023 7:18 PM EDTGender IdentityNot on file Sexual OrientationNot on 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 Not on fileNot on fileNot on file Last Filed Vital Signs Vital SignReadingTime TakenCommentsBlood Vzgfewpm901/8411 3:29 PM EST Jholb8891 3:36 PM DHAUdplsujfmfa89.2 ??C (97.1 ??F)07/30/2025 3:36 PM EDTRespiratory Nwjt719012/23/2022 4:16 PM ESTOxygen Fdhkclaotg24%07/30/2025 3:36 PM EDTInhaled Oxygen Concentration--Gbgdrs20.3 kg (168 lb 1.9 oz)10/14/2025 3:29 PM DCJZrjtfy610.5 cm (5' 2 )07/30/2025 3:36 PM EDTBody Mass Index30.75007/30/2025 3:36 PM EDT Plan of Treatment DateTypeDepartmentCare Team (Latest Contact Info)Arkmhnmlmkh20/04/2025 9:00 AM ESTRoutine [facility] [address] [place] [address] Jony Pop, [address] [facility] [address] [place] [address] Health MaintenanceDue DateLast DoneCommentsCOVID-19 Vaccine ( season) 2025Influenza Vaccine (#1)Pap Smear08/18/2027 08/18/2024, 08/15/2023, 06/20/2022, Additional history existsCervical Cancer Hgseendxs21/09/2028HPV/Pcwcyg51/neumococcal Vaccine: Pediatrics (0 to 5 Years) and At-Risk Patients (6 to 64 Years)Aged OutNo longer eligible based on patient's age to complete this topic Procedures Procedure NamePriorityDate/TimeAssociated DiagnosisCommentsPOCT URINALYSIS ZDTEHHMZWvoypvw93/19/2025 3:40 PM EST 33 weeks gestation of ([facility]) Third trimester ([facility]) [facility] NXGEAndfoeu77/17/2025 8:28 PM EST SRMCOH PROTHROMBIN TIME INR W/O JTDHEigzvlj99/17/2025 8:28 PM EST ALL HLSYnkpszc49/17/2025 8:28 PM EST C[facility] IOZXgrityt89/17/2025 8:28 PM EST C[facility] BVNBufudqb87/17/2025 8:28 PM EST ALL URIC LEMBZvehisy97/17/2025 8:28 PM EST TBH NWDRKKPDZCBkxfhzf16/17/2025 8:28 PM EST ALL EPXPllqdhv45/17/2025 8:28 PM EST ALL CBC WITH AUTO VKJDYogdzvn20/17/2025 8:28 PM EST TBH URINE T PROTEIN CREAT KSLMXKvjyowd02/17/2025 7:05 PM EST TBH UA (CLEAN/CATCH) BRASS PLATER/MICRO IF IND.Sgjldcz5810/12/2025 7:05 PM EST US OB BPP W NON-KABXBL5410/11/2025 1:46 PM EST US OB BPP W NON-YCXZAQ8110/03/2025 11:36 AM EST POCT URINALYSIS XAEGRTZKSewrfya78/05/2025 3:13 PM EST Third trimester ([facility]) US OB BPP W NON-KLRKUF3909/26/2025 2:50 PM EDT US OB BPP W NON-MWIZBE1509/19/2025 12:17 PM EDT POCT URINALYSIS TJPMIZOEBxixycy67/22/2025 4:09 PM EDT 29 weeks gestation of ([facility]) Third trimester ([facility]) ALL CBC WITH AUTO KVODWdfbcod82/09/2025 5:15 PM EDT MHPT TPGMIYKSKHVvluyfz22/09/2025 5:15 PM EDT CCF GSPTZhfxbmm68/09/2025 5:15 PM EDT SRMCOH PROTHROMBIN TIME INR W/O MICQRixlhxb53/09/2025 5:15 PM EDT CCF ODOOlhckow24/09/2025 5:15 PM EDT CCF AJIDucgmuu97/09/2025 5:15 PM EDT ALL URIC HOAIMdyyqkk49/09/2025 5:15 PM EDT TBH NYODZUJVTABxzppqo87/09/2025 5:15 PM EDT ALL UPIWsatnfr52/09/2025 5:15 PM EDT TBH URINE T PROTEIN CREAT VIEGLXqqeips97/09/2025 5:05 PM EDT POCT URINALYSIS SUJONMIUMxvkidj86/09/2025 4:26 PM EDT 27 weeks gestation of ([facility]) TBH TOTAL PROTEIN 24 HOUR ZMJAEZpxppya84/04/2025 8:00 AM EDT US OB BPP W NON-TQMFSH5008/27/2025 6:02 PM EDT TBH URINE T PROTEIN CREAT HGMASMjetmkc00/02/2025 5:50 PM EDT CCF NAUOfoiuwc49/02/2025 5:00 PM EDT CCF PINQPxrzydc32/02/2025 5:00 PM EDT SRMCOH PROTHROMBIN TIME INR W/O TCAYMjuwycc32/02/2025 5:00 PM EDT ALL SGJXkhcgvw49/02/2025 5:00 PM EDT CCF JQOSxzdzkl62/02/2025 5:00 PM EDT ALL URIC KWDVNfeglhb40/02/2025 5:00 PM EDT TBH ZMPMNQHNIDFsucmyf17/02/2025 5:00 PM EDT ALL FIGKejehgi79/02/2025 5:00 PM EDT ALL CBC WITH AUTO XFXGNirkjty16/02/2025 5:00 PM EDT POCT URINALYSIS ADAHYQKYSqusuqt01/02/2025 3:53 PM EDT 26 weeks gestation of ([facility]) URINE CULTURE, QGKXSTMKcmeyzn33/30/2025 8:10 AM EDT POCT URINALYSIS MUNDXQKUPkelbno01/17/2025 2:39 PM EDT 24 weeks gestation of ([facility]) Second trimester ([facility]) US OB LIMITED 1+ GKTEJNMJyeqybf29/17/2025 2:22 PM EDT Encounter for follow-up ultrasound of anatomy ([facility]) AFP, SERUM, OPEN SPINA NRLNBUWthpxuh85/20/2025 5:07 PM EDT POCT URINALYSIS ZHJNHYAVNjdwhmk42/20/2025 3:50 PM EDT 20 weeks gestation of ([facility]) Second trimester ([facility]) US OB 14+ WEEKS ANATOMY RXLGSjggeez79/20/2025 3:26 PM EDT Screening, , for anatomic survey ([facility]) PAP WALRFMwydxzu04/23/2024 12:00 AM EDTTHINPREP PAP AND HPV MRNA E6/E7 W/RFL HPV 16,18/01Ytankqs68/09/2023 4:00 PM EDT Well woman exam with routine gynecological exam from Last 3 Months or Most Recently Relevant to Health Maintenance Results * (ABNORMAL) POCT urinalysis dipstick manually resulted (10/14/2025 3:40 PM EST) Only the most recent of7 resultswithin the time period is included. ComponentValueRef RangeTest MethodAnalysis TimePerformed AtPathologist Signature Color, UAYellowClarity, UAClearGlucose, UANegativeNegative - 2000(110) ++++ mg/dLBilirubin, UANegativeNegative - 4(70) +++ mg/dLKetones, UAPositiveNegative - 160(16) ++++ mg/dLSpec Grav, UA1.0201 - 1.03Blood, UANegativeNegative - 50 Teodoro/mcLpH, UA6.05 - 9Protein, UATraceNegative - 2000(20) ++++ mg/dLUrobilinogen, UA0.20.2 - 12 mg/dLLeukocytes, UANegativeNegative - 500+++ Robinson/mcLNitrite, UA NegativeNegative - PositiveSpecimen (Source)Anatomical Location / Laterality Collection Method / VolumeCollection TimeReceived QkrbRtfwj28/19/2025 3:40 PM EST Narrative Authorizing ProviderResult TypeResult StatusCorey Kiesha DOPOINT OF CARE TEST ENTER/EDIT ORDERABLESFinal Result * TBH CREATININE (10/12/2025 8:28 PM EST) Only the most recent of3 resultswithin the time period is included. ComponentValueRef RangeTest MethodAnalysis TimePerformed AtPathologist Signature CREATININE0.740.55 - 1.02 mg/dLTBHTBH EGFR-AF LUXEMBOURGER>60>=60 mL/min/1.73m 2TBH TBH EGFR-NON AF LUXEMBOURGER>60>=60 mL/min/1.73m 2TBHSpecimen (Source)Anatomical Location / LateralityCollection Method / VolumeCollection TimeReceived Time 10/12/2025 8:28 PM EST10/12/2025 8:39 PM EST Narrative CLINISYNC - 10/12/2025 8:59 PM EST Authorizing ProviderResult TypeResult StatusCorey Kiesha DOCLINISYNCFinal Result Performing OrganizationAddressCity/State/ZIP CodePhone Number [facility] * SRMCOH PROTHROMBIN TIME INR W/O COUM (10/12/2025 8:28 PM EST) Only the most recent of3 resultswithin the time period is included. ComponentValueRef RangeTest MethodAnalysis TimePerformed AtPathologist Signature PROTHROMBIN TIME9.69.0 - 11.6 secTBHTBH INR<0.93TBHComment: DESIRED INR: 2.0-3.0 CONDITIONS NOT LISTED BELOW 2.5-3.5 FOR PROSTHETIC HEART VALVE REPLACEMENT 2.5-3.5 RECURRENT THROMBOSIS Specimen (Source)Anatomical Location / LateralityCollection Method / Volume Collection TimeReceived Time10/12/2025 8:28 PM EST10/12/2025 8:39 PM EST Narrative CLINISYNC - 10/12/2025 8:59 PM EST Authorizing ProviderResult TypeResult StatusCorey Kiesha DOCLINISYNCFinal Result Performing OrganizationAddSelect [facility] Hillty/State/ZIP CodePhone Number [facility] * [facility] AST (10/12/2025 8:28 PM EST) Only the most recent of3 resultswithin the time period is included. ComponentValueRef RangeTest MethodAnalysis TimePerformed AtPathologist Signature ASPARTATE AMINO [id number] - 37 U/LTBHSpecimen (Source)Anatomical Location / LateralityCollection Method / VolumeCollection TimeReceived Time10/12/2025 8:28 PM EST10/12/2025 8:39 PM EST Narrative CLINISYNC - 10/12/2025 8:59 PM EST Authorizing ProviderResult TypeResult StatusCorey Kiesha DOCLINISYNCFinal Result Performing OrganizationAddSelect [facility] Hillty/State/ZIP CodePhone Number [facility] * [facility] APTT (10/12/2025 8:28 PM EST) Only the most recent of3 resultswithin the time period is included. ComponentValueRef RangeTest MethodAnalysis TimePerformed AtPathologist Signature PARTIAL THROMBOPLASTIN TIME24.522.3 - 36.2 secTBHSpecimen (Source)Anatomical Location / LateralityCollection Method / VolumeCollection TimeReceived Time 10/12/2025 8:28 PM EST10/12/2025 8:39 PM EST Narrative CLINISYNC - 10/12/2025 8:59 PM EST Authorizing ProviderResult TypeResult StatusCorey Kiesha DOCLINISYNCFinal Result Performing OrganizationAddressCity/State/ZIP CodePhone Number CLINISYNC TB * C[facility] ALT (10/12/2025 8:28 PM EST) Only the most recent of3 resultswithin the time period is included. ComponentValueRef RangeTest MethodAnalysis TimePerformed AtPathologist Signature ALANINE [id number] - 59 U/LTBHSpecimen (Source)Anatomical Location / LateralityCollection Method / VolumeCollection TimeReceived Time10/12/2025 8:28 PM EST10/12/2025 8:39 PM EST Narrative CLINISYNC - 10/12/2025 8:59 PM EST Authorizing ProviderResult TypeResult StatusCorey Kiesha DOCLINISYNCFinal Result Performing OrganizationAddSelect Specialty [facility] Hillty/State/ZIP CodePhone Number CLINISYNC TB * ALL URIC ACID (10/12/2025 8:28 PM EST) Only the most recent of3 resultswithin the time period is included. ComponentValueRef RangeTest MethodAnalysis TimePerformed AtPathologist Signature URIC ACID4.12.6 - 6.0 mg/dLTBHSpecimen (Source)Anatomical Location / Laterality Collection Method / VolumeCollection TimeReceived Time10/12/2025 8:28 PM EST 10/12/2025 8:39 PM EST Narrative CLINISYNC - 10/12/2025 8:59 PM EST Authorizing ProviderResult TypeResult StatusCorey Kiesha DOCLINISYNCFinal Result Performing OrganizationAddSelect Specialty [facility] Hillty/State/ZIP CodePhone Number CLINISYNC TB * ALL LDH (10/12/2025 8:28 PM EST) Only the most recent of2 resultswithin the time period is included. ComponentValueRef RangeTest MethodAnalysis TimePerformed AtPathologist Signature LACTATE [id number] - 234 U/LTBHSpecimen (Source)Anatomical Location / LateralityCollection Method / VolumeCollection TimeReceived Time10/12/2025 8:28 PM EST10/12/2025 8:39 PM EST Narrative CLINISYNC - 10/12/2025 8:59 PM EST Authorizing ProviderResult TypeResult StatusCorey Kiesha DOCLINISYNCFinal Result Performing OrganizationAddressCity/State/ZIP CodePhone Number CLINISYNC TBH * (ABNORMAL) ALL CBC WITH AUTO DIFF (10/12/2025 8:28 PM EST) Only the most recent of3 resultswithin the time period is included. ComponentValueRef RangeTest MethodAnalysis TimePerformed AtPathologist Signature TBH WBC12.1(H)4.0 - 11.0 10 3/uLTBHTBH RBC3.84(L)4.20 - 5.40 10 6/uLTBHTBH HGB 11.7(L)12.0 - 16.0 g/dLTBHTBH HCT34.5(L)36.0 - 48.0 %TBHTBH MCV89.881.0 - 99.0 fLTBHTBH MCH30.526.7 - 34.0 pgTBHTBH MCHC33.929.9 - 35.2 g/dLTBHTBH RDW13.211.0 - 15.0 %TBHTBH LME178632 - 450 10 3/uLTBHTBH MPV9.69.5 - 13.5 fLTBHNEUTROPHILS PERCENT AUTO67.543.0 - 75.0 %TBHLYMPHOCYTES PERCENT AUTO19.1(L)20.5 - 60.0 %TBH MONOCYTES PERCENT AUTO8.81.7 - 12.0 %TBHTBH EO %1.30.9 - 7.0 %TBHBASOPHILS PERCENT AUTO0.30.2 - 2.0 %TBHIMMATURE GRANULOCYTES PCT AUTO3.0(H)0.0 - 0.5 %TBH NEUTROPHILS ABSOLUTE AUTO8.1(H)1.4 - 6.5 10 3/uLTBHLYMPHOCYTES ABSOLUTE AUTO2.3 1.2 - 3.8 10 3/uLTBHMONOCYTES ABSOLUTE AUTO1.1(H)0.3 - 0.8 10 3/uLTBHTBH EO #0.2 0.0 - 0.7 10 3/uLTBHBASOPHILS ABSOLUTE AUTO0.00.0 - 0.1 10 3/uLTBHIMMATURE GRANULOCYTES ABS AUTO0.36(H)0.00 - 0.03 10 3/uLTBHSpecimen (Source)Anatomical Location / LateralityCollection Method / VolumeCollection TimeReceived Time 10/12/2025 8:28 PM EST10/12/2025 8:39 PM EST Narrative CLINISYNC - 10/12/2025 8:52 PM EST Authorizing ProviderResult TypeResult StatusCorey Kiesha DOCLINISYNCFinal Result Performing OrganizationAddressCity/State/ZIP CodePhone Number CLINISYNC TBH * ALL BUN (10/12/2025 8:28 PM EST) Only the most recent of3 resultswithin the time period is included. ComponentValueRef RangeTest MethodAnalysis TimePerformed AtPathologist Signature BLOOD UREA QNPRZKTM59.07.0 - 18.0 mg/dLTBHSpecimen (Source)Anatomical Location / LateralityCollection Method / VolumeCollection TimeReceived Time10/12/2025 8:28 PM EST10/12/2025 8:39 PM EST Narrative CLINISYNC - 10/12/2025 8:59 PM EST Authorizing ProviderResult TypeResult StatusCorey Kiesha DOCLINISYNCFinal Result Performing OrganizationAddressCity/State/ZIP CodePhone Number CLINISYNC TB * (ABNORMAL) TBH URINE T PROTEIN CREAT RATIO (10/12/2025 7:05 PM EST) Only the most recent of3 resultswithin the time period is included. ComponentValueRef RangeTest MethodAnalysis TimePerformed AtPathologist Signature TOTAL PROTEIN URINE URJKJR45.5(H)<=11.9 mg/dLTBHCREATININE URINE WIZGGA43.21 20.00 - 300.00 mg/dLTBHPROTEIN CREATININE RATIO URINE0.16TBHSpecimen (Source) Anatomical Location / LateralityCollection Method / VolumeCollection Time Received Time10/12/2025 7:05 PM EST10/12/2025 10:30 PM EST Narrative CLINISYNC - 10/12/2025 10:40 PM EST Authorizing ProviderResult TypeResult StatusCorey Kiesha DOCLINISYNCFinal Result Performing OrganizationAddressCity/State/ZIP CodePhone Number CLINISYNC TB * TBH UA (CLEAN/CATCH) BRASS PLATER/MICRO IF IND. (10/12/2025 7:05 PM EST)ComponentValue Ref RangeTest MethodAnalysis TimePerformed AtPathologist SignatureCOLOR URINE LT. YELLOWYELLOWTBHCLARITY URINECLEARCLEARTBHSPECIFIC GRAVITY URINE1.0201.005 - 1.025TBHPH URINE5.55.0 - 9.0TBHPROTEIN URINENEGATIVENEG/TRACE mg/dLTBH GLUCOSE URINE UANEGATIVENEGATIVE mg/dLTBHBILIRUBIN URINENEGATIVENEGATIVETBH KETONES URINENEGATIVENEGATIVE mg/dLTBHBLOOD URINENEGATIVENEGATIVETBHNITRITE URINENEGATIVENEGATIVETBHUROBILINOGEN URINE0.20.2 - 1.0 EU/dLTBHLEUKOCYTE ESTERASE URINENEGATIVENEGATIVETBHURINE MICROSCOPIC INDICATEDNOTBHSpecimen (Source)Anatomical Location / LateralityCollection Method / VolumeCollection TimeReceived Time10/12/2025 7:05 PM EST10/12/2025 7:37 PM EST Narrative CLINISYNC - 10/12/2025 7:40 PM EST Authorizing ProviderResult TypeResult StatusCorey Kiesha DOCLINISYNCFinal Result Performing OrganizationAddressCity/State/ZIP CodePhone Number [facility] * US OB BPP W NON-STRESS (10/11/2025 1:46 PM EST) Only the most recent of5 resultswithin the time period is included. Anatomical RegionLateralityModalityOtherSpecimen (Source)Anatomical Location / LateralityCollection Method / VolumeCollection TimeReceived Time10/11/2025 1:46 PM EST Narrative 10/11/2025 1:48 PM EST [facility] ?[address] ? [place] [address] ? Ultrasound Report ? Signed ? Patient: DRISS GAMA ?MR#: [id number] ?? : 1995 ?Acct:[id number] ?? Age/Sex: 30 / F ?ADM Date: 10/10/25 ?? Loc: FBCO ? Attending Dr: Jony Pop D.O. ? Ordering Physician: Jony Pop D.O. ?? Date of Service: 10/10/25 ?? Procedure(s): US OB BPP w non-stress ?? Accession Number(s): [id number] ? cc: Jony Pop D.O.; Yomaira BELTRAN ? [facility] ? [address] ? [place] [address] ? Patient Name: ?? DRISS GAMA ? MRN: [facility]:[id number] ? date: 1995 ?Sex: F ?? Assigned Patient Location: FBC ?? Current Patient Location: FBCO ?? Accession/Order Number: [id number] ?? Exam Date: 10/10/2025 ??10:49 ?Report Date: [...] M.D. ??10/11/2025 1:46 PM ? Dictation Location: [facility]- ? Electronically authenticated by: [id number] ??Y ?? Date: 10/11/2025 ??13:46 ? Dictated By: ?Jp Morillo D.O. ? Signed By: ?10/11/25 1348 ? DD/ 1346 ? TD/TT: ? Profiling Machine Setup Operator: Procedure Note Radiology, Radiologist, - 10/11/2025 [place] [address] Ultrasound Report Signed Patient: DRISS GAMA MMR#: [id number] : 1995Acct:[id number] Age/Sex: 30 / FADM Date: 10/10/25 Loc: FBCO Attending Dr: Jony Pop D.O. Ordering Physician: Jony Pop D.O. Date of Service: 10/10/25 Procedure(s): US OB BPP w non-stress Accession Number(s): [id number] cc: Jony Pop D.O.; Yomaira BELTRAN The [address] [address] Patient Name: DRISS GAMA MRN: [facility]:[id number] date: 1995 Sex: F Assigned Patient Location: [facility] Current Patient Location: [facility] Accession/Order Number: [id number] Exam Date: 10/10/2025 10:49 Report Date: 10/11/2025 [...] Morillo M.D. 10/11/2025 1:46 PM Dictation Location: [place] [address] Electronically authenticated by: [id number] Y Date: 3:46 Dictated By: Jp Morillo D.O. Signed By:10/11/25 1348 DD/ 1346 TD/TT: Profiling Machine Setup Operator: Authorizing ProviderResult TypeResult StatusCorey Kiesha DOCLINISYNC IMAGINGFinal Result * (ABNORMAL) MHPT FIBRINOGEN (09/03/2025 5:15 PM EDT)ComponentValueRef RangeTest MethodAnalysis TimePerformed AtPathologist KcjoxgdupDOUQZAJDBB117(H)200 - 400 mg/dLTBHSpecimen (Source)Anatomical Location / LateralityCollection Method / VolumeCollection TimeReceived Time09/03/2025 5:15 PM EDT1 5:21 PM EDT Narrative CLINISYNC - 09/03/2025 5:45 PM EDT Authorizing ProviderResult TypeResult StatusCorey Kiesha DOCLINISYNCFinal Result Performing OrganizationAddressCity/State/ZIP CodePhone Number CLINISYNC TBH * (ABNORMAL) TBH TOTAL PROTEIN 24 HOUR URINE (08/29/2025 8:00 AM EDT)Component ValueRef RangeTest MethodAnalysis TimePerformed AtPathologist SignatureTOTAL PROTEIN URINE QNKMMM79.6(H)<=11.9 mg/dLTBHTOTAL VOLUME 24 HOUR UPCPZ791lS/24hr TBHTBH TOTAL PROTEIN 24 HOUR JFVMB054.6<=149.1 mg/24hrTBHSpecimen (Source) Anatomical Location / LateralityCollection Method / VolumeCollection Time Received Time08/29/2025 8:00 AM EDT1 10:35 AM EDT Narrative JENNIFER - 08/29/2025 12:08 PM EDT Authorizing ProviderResult TypeResult StatusGeneric External Data Provider CLINISYNCFinal ResultPerforming OrganizationAddressty/State/ZIP CodePhone Number [facility] * URINE CULTURE, ROUTINE (08/25/2025 8:10 AM EDT)ComponentValueRef RangeTest MethodAnalysis TimePerformed AtPathologist SignatureURINE CULTURE, ROUTINE ??Urine Culture, Routine TBHURINE CULTURE, ROUTINEMixed urogenital floraTBHURINE CULTURE, BJKYAZG59,000- 50,000 colony forming units per mLTBHURINE CULTURE, ROUTINEPerformed at: [facility] LabCorewell Health Blodgett HospitalTBHURINE CULTURE, [id number] [place], [place] [address]LLA URINE CULTURE, ROUTINELab Director: Cm Sandoval PhD, Phone: [phone] Specimen (Source)Anatomical Location / LateralityCollection Method / Volume Collection TimeReceived Time08/25/2025 8:10 AM EDT08/25/2025 8:30 AM EDT Narrative JENNIFER - 08/26/2025 10:07 PM EDT Authorizing ProviderResult TypeResult StatusGeneric External Data ProviderLAB BLOOD ORDERABLESFinal ResultPerforming OrganizationAddressty/State/ZIP Code Phone Number [facility] * US OB limited 1+ fetuses [...] Junito Alas MD Authorizing ProviderResult TypeResult StatusCorey [facility] OB US PROCEDURES Final Result * AFP, SERUM, OPEN SPINA BIFIDA (07/15/2025 5:07 PM EDT)ComponentValueRef Range Test MethodAnalysis TimePerformed AtPathologist SignatureRESULTSReport.TBHTEST RESULTS:*Screen Negative*.TBHGEST. AGE ON COLLECTION DATE20.6. weeksTBHGESTAT. AGE BASED ONLMP.TBHComment: Recalculations are not recommended when gestational dating by LMP and ultrasound are within 10 days. MATERNAL AGE AT EDD30.7. yrTBHRACECaucasian.XUMYCYSHT018. lbsTBHINSULIN DEP DIABETESNo.TBHMULTIPLE GESTATIONNo.TBHAFP VALUE59.2. ng/mLTBHAFP MOM0.95.TBHOSBR RISK 1 [id number].TBHINTERPRETATIONComment.TBHComment: Interpretation: Screen Negative This result is screen [...] Customer Services to discuss available options. ??The [place] [employer] recommends amniocentesis be offered to women age 35 and older. COMMENT:Comment.TBHComment: Amy Ramos, Ph.D., [facility] Director References: Available Upon Request. Multiples Of Median Cutoffs ?For AFP Elevations Hsieh ?? 2.5 ? Black ?2.8 IDD ? 2.0 ? Twins ?4.5 ?Abbreviation Definitions IDD - Insulin Dep Diabetes OSBR - Open Spina Bifida Risk For further inquiries contact [facility] at [phone]. This test was developed and its performance characteristics determined by [employer]. It has not been cleared or approved by the Food and Drug Administration. Performed at: ??[facility] [place] [address] [place], [place] ??[id number] Roast Master: Dona Justin [facility], Phone: ??[phone] Specimen (Source)Anatomical Location / LateralityCollection Method / Volume Collection TimeReceived Time07/15/2025 5:07 PM EDT07/15/2025 5:10 PM EDT Narrative MATTHEWISYTERRY - 07/18/2025 1:07 AM EDT N N LMP [id number] 2 17 N 1 Y 146 N N N N N White/ Authorizing ProviderResult TypeResult StatusGeneric External Data ProviderLAB BLOOD ORDERABLESFinal ResultPerforming OrganizationAddressCity/State/ZIP Code Phone Number [facility] * OB 14+ weeks anatomy scan (07/15/2025 [...] ?? , PHD at 16-Jul-2025 08:07:07 AM [facility] Procedure Note Travis Rueda MD - [...] TRAVIS RUEDA II, MD, PHD 08:07:07 AM [facility] Authorizing ProviderResult TypeResult StatusCorey Kieshawesly RIDER OB US PROCEDURES Final Result * Pap Smear (08/18/2024 12:00 AM EDT)Specimen (Source)Anatomical Location / LateralityCollection Method / VolumeCollection TimeReceived TimeSwabCervical swab / Unknown Narrative Authorizing ProviderResult TypeResult StatusFazio Nurse Noms Bcp ObLAB CYTOLOGY ORDERABLESFinal ResultPerforming OrganizationAddressCity/State/ZIP CodePhone Number EXTERNAL LAB * THINPREP PAP AND HPV MRNA E6/E7 W/RFL HPV 16,18/45 (09/03/2023 4:00 PM EDT) Narrative Authorizing ProviderResult TypeResult StatusAmy [place] PALAB BLOOD ORDERABLES Final ResultPerforming OrganizationAddressCity/State/ZIP CodePhone Number EXTERNAL LAB from Last 3 Months or Most Recently Relevant to Health Maintenance Insurance Care Teams Team MemberRelationshipSpecialtyStart DateEnd Date Eliceo Beltran DO [address] [place] [address] PCP - GeneralFamily Medicine02/14/24 Eilceo Beltran DO [address] [place] [address] PCP - Medical [place] [employer]07/27/2412
--- OUTSIDE RECORDS SUMMARY | 2025-10-14 16:23 | XMS_ITS | Encounter Summary ---
Author Organization [facility] Address [address] [place] [place] [address] Care Team Providers Care Woodwork Teacher Name Role Phone Eliceo Beltran DO Primary Care Provider CharlottegeovaniEliceo kauffman Unavailable [phone] Encounter Details DateTypeDepartmentCare Team (Latest Contact Info)Pykrwagpwvd63/14/2025bstract NOMShalonda [facility] OBGYN [address] [place] [address] Nathan Pop DO [address] [facility] [address]reen Armstrong, [facility]11 Social History Tobacco UseTypesPacks/DayYears UsedDateSmoking Tobacco: NeverSmokeless Tobacco: NeverAlcohol UseStandard Drinks/WeekCommentsNever0 (1 standard drink = 0.6 oz pure alcohol)caffeine: 1-2 cups per day, coffee and wxoD9909 Health Literacy AnswerDate RecordedHow often do you [...] relatives?Once a week12/29/2024How often do you attend congregation or nondenominational services?Patient /03/2025Do you belong to any clubs or organizations such as congregation groups, unions, Lazarus Effect or athletic leodan ups, or school groups?No12/29/2024How often do you attend meetings of the clubs or organizations you belong to?Patient azjclulm64/03/2025re you , , , , never , [...] RecordedPatient Health Questionnaire-2 Score0 07/30/2025[facility] [place] of Occupational Health - Occupational Stress QuestionnaireAnswerDate RecordedDo you feel stress - tense, restless, nervous, or anxious, or unable to sleep at night because yourmind is troubled all the time - these days?Only a sbrszn9112/29/2024Exercise Vital SignAnswerDate Recorded On average, how many [...] the highest degree you have received?High school gedfxxns66/29/2023 Estimated Date of NjvfsjsmXanodtgcNgl42/03/2026ased on last menstrual period of 02/21/2025Sex and Gender InformationValueDate RecordedSex Assigned at BirthNot on fileLegal TmpHxojgp99/15/2023 7:18 PM EDTGender IdentityNot on file Sexual OrientationNot on 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 Not on fileNot on fileNot on filedocumented as of this encounter Plan of Treatment DateTypeDepartmentCare Team (Latest Contact Info)Ekkundgcxme72/04/2025 9:00 AM ESTRoutine [facility] Patti YOUNGN [address] [phone] Nathan Pop DO [address] [facility] [address] [place] [address] documented as of this encounter Visit Diagnoses Not on filedocumented in this encounter Care Teams Team MemberRelationshipSpecialtyStart DateEnd Date Eliceo Beltran DO [address] [facility] [address] [place] [address] PCP - GeneralFamily Medicine02/14/24 Eliceo Beltran DO [address] [facility] [address] [place] [address] PCP - Medical [place] [employer]07/27/2412documented as of this encounter
--- OUTSIDE RECORDS SUMMARY | 2025-10-14 16:23 | XMS_ITS | Patient Health Record ---
Author Organization [facility] Address [address] [place] [address] Care Team Providers Care Clock Repair Technician Name Role Phone Cruz Rodríguez Primary [...] Quad PFS (0.5mL Admin) 18 y/o & aiszzFegbeoo12/30/3324Nqxpcxmn7783 Fluzone Quad PFS (0.5mL Admin) 6 months & slipvAyvlihe53/17/4531Csusmitg0760 Fluzone, 6mo & older, Quad MDV (0.5mL Admin)Uuhwaxb7107/16/20235759Jjvomvjw1673 Fluzone, 6mo & older, Quad PFS (0.5mL Admin)Epgvtyt24/18/2023Contraindications z2023 Fluzone, 6mo & older, Quad PFS (0.5mL Admin)Volvvsb63/20/2024Refused Social History Tobacco Use: Social History Observation [...] Status W/U Status Risk Notes Problem Tachycardia (0635648) Tachycardia (R00.0) ActiveconfirmedProblemObesity (048736046)Obesity (BMI 30-39.9) (E66.9)Active confirmed Plan Of Treatment No Information Insurance Providers Payer Name Payer Address Payer Phone Subscriber Number Group Number Insured Name Patient Relationship to Insured Coverage Start Date Coverage End Date [facility] [address] [place] [address] [id number] Driss Woodruff Self - patient is the insured Medical [place] [facility] [address] [place] [phone] [id number], AlexisSelf - patient is the insured Medical (General) History Medical History History ICD Code Tachycardia R00.0 Surgical History Surgery Date(Month/Year) right shoulder surgery endometriosisappendectomyHospitalization History Reason Date(Month/Year) surgeries childbirth
--- OUTSIDE RECORDS SUMMARY | 2025-10-14 16:23 | XMS_ITS | Encounter Summary ---
Author Organization [facility] [facility] tem Address [id number] [place] [address] Care Team Providers Care Insurance Actuary Name Role Phone Cruz Rodríguez MD Primary Care Provider [phone] Reason for Referral * Diagnostic Imaging (Routine) - Pending ReviewSpecialtyDiagnoses / Procedures Referred By ContactReferred To ContactMaternal and Medicine Diagnoses Essential hypertension affecting in third trimester Insulin controlled gestational diabetes mellitus (GDM) in third trimester Procedures [facility] with or without consult Jean Carlos Pina MD [address] [facility], [address] [place] [address] Phone: tel: fax: Maternal- Medicine at [facility] [address] [place] [address] Phone: tel: fax: Referral IDStatusReasonStart DateExpiration DateVisits RequestedVisits [id number] Encounter Details DateTypeDepartmentCare Team (Latest Contact Info)Arfbmkejpfi52/14/2025Orders Only Maternal- Medicine at [facility] [address] [place] [address] Zora Samuels RN Essential hypertension affecting in [...] or more drinks on one occasion?Never5ChildcareAnswer Date LldoykqzUompdsxnyCznhgii07/13/2019EmploymentAnswerDate RecordedEmployment Fgwfssm9105/08/2019Hunger ScreeningAnswerDate RecordedWithin the past 12 months we worried whether our food would run out before we got money to buy more.Never True09/10/2025Within the past 12 months the food we bought just didn't last and we didn't have money to get more.Never True09/10/2025Purpose - LifeAnswerDate RecordedPurpose and direction in jelhRxinohw64/11/2021Estimated Date of HswyvymzVchylvomKys29/03/2026Based on last menstrual period of 02/21/2025 (Exact Date)Sex and Gender InformationValueDate RecordedSex Assigned at BirthNot on fileLegal HlaCjjpne08/07/2019 2:55 PM ESTGender IdentityNot on fileSexual OrientationNot on filedocumented as of this encounter Plan of Treatment DateTypeDepartmentCare Team (Latest Contact Info)Mccrofqfslc86/03/2025 11:00 AM ESTAppointment Maternal Medicine [place] [address] [place] [phone] 11/03/2025 2:30 PM ESTOffice Visit Maternal- Medicine at [facility] [address] [facility] [place] [phone] Kayleigh Rizzo PA-C [address] [facility] [address] [place] [address] NameTypePriorityAssociated DiagnosesOrder ScheduleUS MFM with or without [...] DateEnd Date Cruz Rodríguez MD [address] [place] [address] PCP - GeneralFamily Medicine12/02/18documented as of this encounter
--- OUTSIDE RECORDS SUMMARY | 2025-10-14 16:23 | XMS_ITS | Encounter Summary ---
Author Organization [facility] Address [id number] [place] [address] Care Team Providers Care Child Development Associate Teacher Name Role Phone Cruz Rodríguez MD Primary Care Provider [phone] Reason for Referral * Diagnostic Imaging (Routine) [...] with or without consult Nathan Pop DO [address] [place] [address] [place] [address] Phone: tel: fax: Maternal- Medicine at [facility] [address] [place] [address] Phone: tel: fax: Referral IDStatusReasonStart DateExpiration DateVisits RequestedVisits [id number] Encounter Details DateTypeDepartmentCare Team (Latest Contact Info)Uyiskkdliac42/13/2025Orders Only Maternal Medicine [place] [address] [place] [phone] Danae Ramirez RN Insulin controlled gestational diabetes [...] or more drinks on one occasion?Never5ChildcareAnswer Date MfvapjweXzlkbsqyrBbygpgr56/13/2019EmploymentAnswerDate RecordedEmployment Vagtvvn0805/08/2019Hunger ScreeningAnswerDate RecordedWithin the past 12 months we worried whether our food would run out before we got money to buy more.Never True09/10/2025Within the past 12 months the food we bought just didn't last and we didn't have money to get more.Never True09/10/2025Purpose - LifeAnswerDate RecordedPurpose and direction in qddsMbyxijy93/11/2021Estimated Date of VujjnrjuMtfzlczhUwk38/03/2026Based on last menstrual period of 02/21/2025 (Exact Date)Sex and Gender InformationValueDate RecordedSex Assigned at BirthNot on fileLegal JssBhhgbs74/07/2019 2:55 PM ESTGender IdentityNot on fileSexual OrientationNot on filedocumented as of this encounter Plan of Treatment DateTypeDepartmentCare Team (Latest Contact Info)Zokvselgcdq26/03/2025 11:00 AM ESTAppointment Maternal Medicine [place] [address] [place] [address] 11/03/2025 2:30 PM ESTOffice Visit Maternal- Medicine at [facility] [address] [place] [phone] Kayleigh Rizzo PA-C [address] [address] NameTypePriorityAssociated DiagnosesOrder ScheduleUS MFM with or without [...] Cruz Rodríguez MD [address] [place] [address] PCP - GeneralFamily Medicine12/02/18documented as of this encounter
--- OUTSIDE RECORDS SUMMARY | 2025-10-14 16:23 | XMS_ITS | Encounter Summary ---
Author Organization [facility] Address [address] [place] [address] Care Team Providers Care Laundry Bag Punch Operator Name Role Phone Eliceo Beltran DO Primary Care Provider [phone] CharlottecarolEliceo Unavailable [phone] Encounter Details DateTypeDepartmentCare Team (Latest Contact Info)Baznzjmjgmd18/05/2025amboo flowsheet LANETTE Armstrong OBGYN [address] [place] [phone] Nathan Pop DO [address] [facility] [address] [facility] [place], [place] [address] Social History Tobacco UseTypesPacks/DayYears UsedDateSmoking Tobacco: NeverSmokeless Tobacco: NeverAlcohol UseStandard Drinks/WeekCommentsNever0 (1 standard drink = 0.6 oz pure alcohol)caffeine: 1-2 cups per day, coffee and cinK1967 Health Literacy AnswerDate RecordedHow often do you [...] week12/29/2024How often do you attend shinto or yarsani services?Patient waegncmo27/03/2025Do you belong to any clubs or organizations such as shinto groups, unions, Plated or athletic leodan ups, or school groups?No12/29/2024How often do you attend meetings of the clubs or organizations you belong to?Patient gduvcozf22/03/2025re you , , , , never , [...] RecordedPatient Health Questionnaire-2 Score0 07/30/2025[facility] [place] of Occupational Health - Occupational Stress QuestionnaireAnswerDate RecordedDo you feel stress - tense, restless, nervous, or anxious, or unable to sleep at night because yourmind is troubled all the time - these days?Only a vlwqea3512/29/2024Exercise Vital SignAnswerDate Recorded On average, how many [...] the highest degree you have received?High school gfuczprv07/29/2023 Estimated Date of JgxvcpxvZbxsxjxfDze2026ased on last menstrual period of 02/21/2025Sex and Gender InformationValueDate RecordedSex Assigned at BirthNot on fileLegal PmuZhmgvn75/15/2023 7:18 PM EDTGender IdentityNot on file Sexual OrientationNot on 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 Not on fileNot on fileNot on filedocumented as of this encounter Plan of Treatment DateTypeDepartmentCare Team (Latest Contact Info)Qxuqywfkfoy59/04/2025 9:00 AM ESTRoutine [facility] Patti MOODY [address] [place] [phone] Nathan Pop DO [address] [facility] [address] [place] [address] documented as of this encounter Visit Diagnoses Not on filedocumented in this encounter Care Teams Team MemberRelationshipSpecialtyStart DateEnd Date Eliceo Beltran DO [address] [address] PCP - GeneralFamily Medicine02/14/24 Eliceo Beltran DO [address] [place] [address] PCP - Medical [place] [employer]07/27/2412documented as of this encounter
--- OUTSIDE RECORDS SUMMARY | 2025-10-14 16:24 | XMS_ITS | Encounter Summary ---
Author Organization [facility] Address [address] [place] [address] Care Team Providers Care Senior Java J2Ee Developer Name Role Phone RubyEliceo Bryant DAY Primary Care Provider Ruby Eliceo Hurtado DO Unavailable [phone] Encounter Details DateTypeDepartmentCare Team (Latest Contact Info)Rjuqdkxtmlk59/18/2025Travel Social History Tobacco UseTypesPacks/DayYears UsedDateSmoking Tobacco: NeverSmokeless Tobacco: NeverAlcohol UseStandard Drinks/WeekCommentsNever0 (1 standard drink = 0.6 oz pure alcohol)caffeine: 1-2 cups per day, coffee and [id number] Health Literacy AnswerDate RecordedHow often do you [...] week12/29/2024How often do you attend catholic or jainism services?Patient scxaxzpd87/03/2025Do you belong to any clubs or organizations such as catholic groups, unions, fraternal or athletic leodan ups, or school groups?No12/29/2024How often do you attend meetings of the clubs or organizations you belong to?Patient qyutomii46/03/2025re you , , , , never , [...] RecordedPatient Health Questionnaire-2 Score0 07/30/2025[facility] [place] of Occupational Health - Occupational Stress QuestionnaireAnswerDate RecordedDo you feel stress - tense, restless, nervous, or anxious, or unable to sleep at night because yourmind is troubled all the time - these days?Only a xvspui4212/29/2024Exercise Vital SignAnswerDate Recorded On average, how many [...] place to sleep or [facility] ([facility])?No09/19/2023Housing Stability Vital SignAnswerDate RecordedIn [...] the highest degree you have received?High school epjljwif09/29/2023 Estimated Date of KjpzbemoAkppmqzoFos00/03/2026ased on last menstrual period of 02/21/2025Sex and Gender InformationValueDate RecordedSex Assigned at BirthNot on fileLegal JrqEpkxbz83/15/2023 7:18 PM EDTGender IdentityNot on file Sexual OrientationNot on 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 Not on fileNot on fileNot on filedocumented as of this encounter Plan of Treatment DateTypeDepartmentCare Team (Latest Contact Info)Xaftbxzviir71/04/2025 9:00 AM ESTRoutine [facility] [place] [facility] [address] [place] [address] Nathan Pop, DO [address] [place] [address] [place] [address] documented as of this encounter Visit Diagnoses Not on filedocumented in this encounter Care Teams Team MemberRelationshipSpecialtyStart DateEnd Date Eliceo Beltran DO [address] [place] [address] PCP - GeneralFamily Medicine02/14/24 Eliceo Beltran DO [address] [place] [address] PCP - Medical [employer]07/27/2412documented as of this encounter
--- OUTSIDE RECORDS SUMMARY | 2025-10-14 16:24 | XMS_ITS | Encounter Summary ---
Author Organization [facility] tem Address [id number] [place] [address] Care Team Providers Care Crib Attendant Name Role Phone Cruz Rodríguez MD Primary Care Provider [phone] Encounter Details DateTypeDepartmentCare Team (Latest Contact Info)Wfyqtdyhlca34/10/2025Telephone Maternal- Medicine at [facility] [address] [facility] [place] [phone] Anjana Daavlos RN Social History Tobacco UseTypesPacks/DayYears UsedDateSmoking Tobacco: NeverSmokeless Tobacco: NeverAlcohol UseStandard Drinks/WeekCommentsNo0 (1 standard drink = 0.6 oz pure alcohol)AUDIT-CAnswerDate RecordedQ1: How often do you have a drink containing alcohol?Never09/10/2025Q2: How many drinks containing alcohol do you have on a typical day when you are drinking?Patient does not drink09/10/2025Q3: How often do you have six or more drinks on one occasion?Never5ChildcareAnswer Date PhmscdgzYczxqkhybSjvngla62/13/2019EmploymentAnswerDate RecordedEmployment Pefzims8105/08/2019Hunger ScreeningAnswerDate RecordedWithin the past 12 months we worried whether our food would run out before we got money to buy more.Never True09/10/2025Within the past 12 months the food we bought just didn't last and we didn't have money to get more.Never True09/10/2025Purpose - LifeAnswerDate RecordedPurpose and direction in hmzgPjizpvc47/11/2021Estimated Date of RmsktfdhEooomfpuDxh13/03/2026Based on last menstrual period of 02/21/2025 (Exact Date)Sex and Gender InformationValueDate RecordedSex Assigned at BirthNot on fileLegal YrbFpqsdp18/07/2019 2:55 PM ESTGender IdentityNot on fileSexual OrientationNot on filedocumented as of this encounter Miscellaneous Notes * Telephone Encounter - Anjana Davalos RN - 10/05/2025 2:39 PM EST Left message for patient to send in blood sugar logs prior to video visit toady in [facility] at 3 PM. Also, Instructed patient to contact [facility] if unable to keep appointment today at [facility], then to call at [phone] option 1 to reschedule. documented in this encounter Plan of Treatment DateTypeDepartmentCare Team (Latest Contact Info)Nnaqhqcmnur32/03/2025 11:00 AM ESTAppointment Maternal Medicine [place] [address] [place] [phone] 11/03/2025 2:30 PM ESTOffice Visit Maternal- Medicine at [facility] [address] [place] [phone] Kayleigh Rizzo PA-C [address] [address] documented as of this encounter Visit Diagnoses Diagnosis Insulin controlled gestational diabetes mellitus (GDM) in second trimester documented in this encounter Care Teams Team MemberRelationshipSpecialtyStart DateEnd Date Cruz Rodríguez MD [address] [place] [address] PCP - GeneralFamily Medicine12/02/18documented as of this encounter
--- OUTSIDE RECORDS SUMMARY | 2025-10-14 16:24 | XMS_ITS | Encounter Summary ---
Author Organization [facility] Address [address] [place] [address] Care Team Providers Care Oven Drier Tender Name Role Phone NirajEliceo kauffman Primary Care Provider [phone] CharlottecarolEliceo [place] DAY Unavailable [phone] Encounter Details DateTypeDepartmentCare Team (Latest Contact Info)Crajbanuxwv38/17/2025Clinisync Result Encounter [facility] Department Unsolicited Nathan Pop DO [address] [facility] [address] [place] [address] Social History Tobacco UseTypesPacks/DayYears UsedDateSmoking Tobacco: NeverSmokeless Tobacco: NeverAlcohol UseStandard Drinks/WeekCommentsNever0 (1 standard drink = 0.6 oz pure alcohol)caffeine: 1-2 cups per day, coffee and [id number] Health Literacy AnswerDate RecordedHow often do you [...] week12/29/2024How often do you attend congregational or yazidi services?Patient ebyvbsja12/03/2025Do you belong to any clubs or organizations such as congregational groups, unions, [employer] or athletic leodan ups, or school groups?No12/29/2024How often do you attend meetings of the clubs or organizations you belong to?Patient xnwtpcdi96/03/2025re you , , , , never , [...] RecordedPatient Health Questionnaire-2 Score0 07/30/2025Fin[facility] [place] of Occupational Health - Occupational Stress QuestionnaireAnswerDate RecordedDo you feel stress - tense, restless, nervous, or anxious, or unable to sleep at night because yourmind is troubled all the time - these days?Only a qtdbtw6012/29/2024Exercise Vital SignAnswerDate Recorded On average, how many [...] steady place to sleep or slept in [facility] (including now)?No09/19/2023Housing Stability Vital SignAnswerDate RecordedIn the last 12 months, was there a time when you were not able to pay the mortgage or rent on time?No12/29/2024Number of Times Moved in the Last YearNot on file12/29/2024t any time in the past 12 months, were you homeless or living in a jail (including now)?No12/29/2024 EducationAnswerDate RecordedWhat is the highest level of school you have completed or the highest degree you have received?High school /29/2023 Estimated Date of LyqwmxaeTvbtxzzrXzi14/03/2026ased on last menstrual period of 02/21/2025Sex and Gender InformationValueDate RecordedSex Assigned at BirthNot on fileLegal BggAgszdh75/15/2023 7:18 PM EDTGender IdentityNot on file Sexual OrientationNot on 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 Not on fileNot on fileNot on filedocumented as of this encounter Plan of Treatment DateTypeDepartmentCare Team (Latest Contact Info)Vhsdexyuyvp57/04/2025 9:00 AM ESTRoutine [facility] [place] [facility] [address] [place] [address] Nathan Pop, [address] [facility] [place] [address] documented as of this encounter Procedures Procedure NamePriorityDate/TimeAssociated DiagnosisCommentsTBH CREATININERoutine 10/12/2025 8:28 PM EST SRMCOH PROTHROMBIN TIME INR W/O VAKIPksbusv50/17/2025 8:28 PM EST CCF XZHBrilscc18/17/2025 8:28 PM EST CCF KVNVNzfhlla29/17/2025 8:28 PM EST CCF UMIThxjvnf66/17/2025 8:28 PM EST ALL URIC FIAYZgmpxdg43/17/2025 8:28 PM EST ALL CVOLaousev91/17/2025 8:28 PM EST ALL CBC WITH AUTO FSCPMufofur25/17/2025 8:28 PM EST ALL GFJKaghmgb14/17/2025 8:28 PM EST TBH URINE T PROTEIN CREAT VLTZCMjlsoms70/17/2025 7:05 PM EST TBH UA (CLEAN/CATCH) TRACK REPAIR LABORER/MICRO IF IND.Ptqxuxo3410/12/2025 7:05 PM EST documented in this encounter Results * CCF APTT (10/12/2025 8:28 PM EST)ComponentValueRef RangeTest MethodAnalysis TimePerformed AtPathologist SignaturePARTIAL THROMBOPLASTIN TIME24.522.3 - 36.2 secTBHSpecimen (Source)Anatomical Location / LateralityCollection Method / VolumeCollection TimeReceived Time10/12/2025 8:28 PM EST10/12/2025 8:39 PM EST Narrative CLINISYNC - 10/12/2025 8:59 PM EST Authorizing ProviderResult TypeResult StatusCorey Kiesha DOCLINISYNCFinal Result Performing OrganizationAddressCity/State/ZIP CodePhone Number [facility] * SRMCOH PROTHROMBIN TIME INR W/O COUM (10/12/2025 8:28 PM EST)ComponentValueRef RangeTest MethodAnalysis TimePerformed AtPathologist SignaturePROTHROMBIN TIME 9.69.0 - 11.6 secTBHTBH INR<0.93TBHComment: DESIRED INR: 2.0-3.0 CONDITIONS NOT LISTED BELOW 2.5-3.5 FOR PROSTHETIC HEART VALVE REPLACEMENT 2.5-3.5 RECURRENT THROMBOSIS Specimen (Source)Anatomical Location / LateralityCollection Method / Volume Collection TimeReceived Time10/12/2025 8:28 PM EST10/12/2025 8:39 PM EST Narrative CLINISYNC - 10/12/2025 8:59 PM EST Authorizing ProviderResult TypeResult StatusCorey Kiesha DOCLINISYNCFinal Result Performing OrganizationAddressCity/State/ZIP CodePhone Number [facility] * ALL LDH (10/12/2025 8:28 PM EST)ComponentValueRef RangeTest MethodAnalysis TimePerformed AtPathologist SignatureLACTATE [id number] - 234 U/LTBH Specimen (Source)Anatomical Location / LateralityCollection Method / Volume Collection TimeReceived Time10/12/2025 8:28 PM EST10/12/2025 8:39 PM EST Narrative CLINISYNC - 10/12/2025 8:59 PM EST Authorizing ProviderResult TypeResult StatusCorey Kiesha DOCLINISYNCFinal Result Performing OrganizationAddressty/State/ZIP CodePhone Number [facility] * CCF ALT (10/12/2025 8:28 PM EST)ComponentValueRef RangeTest MethodAnalysis TimePerformed AtPathologist SignatureALANINE [id number] - 59 U/LTBH Specimen (Source)Anatomical Location / LateralityCollection Method / Volume Collection TimeReceived Time10/12/2025 8:28 PM EST10/12/2025 8:39 PM EST Narrative CLINISYNC - 10/12/2025 8:59 PM EST Authorizing ProviderResult TypeResult StatusCorey Kiesha DOCLINISYNCFinal Result Performing OrganizationAddressCity/State/ZIP CodePhone Number [facility] * CCF AST (10/12/2025 8:28 PM EST)ComponentValueRef RangeTest MethodAnalysis TimePerformed AtPathologist SignatureASPARTATE AMINO [id number] - 37 U/L TBHSpecimen (Source)Anatomical Location / LateralityCollection Method / Volume Collection TimeReceived Time10/12/2025 8:28 PM EST10/12/2025 8:39 PM EST Narrative CLINISYNC - 10/12/2025 8:59 PM EST Authorizing ProviderResult TypeResult StatusCorey Kiesha DOCLINISYNCFinal Result Performing OrganizationAddressCity/State/ZIP CodePhone Number CLIN[facility]NC TB * ALL URIC ACID (10/12/2025 8:28 PM EST)ComponentValueRef RangeTest Method Analysis TimePerformed AtPathologist SignatureURIC ACID4.12.6 - 6.0 mg/dLTBH Specimen (Source)Anatomical Location / LateralityCollection Method / Volume Collection TimeReceived Time10/12/2025 8:28 PM EST10/12/2025 8:39 PM EST Narrative CLINISYNC - 10/12/2025 8:59 PM EST Authorizing ProviderResult TypeResult StatusCorey Kiesha DOCLINISYNCFinal Result Performing OrganizationAddW[facility] Hospitalty/State/ZIP CodePhone Number CLINISYNC TB * TBH CREATININE (10/12/2025 8:28 PM EST)ComponentValueRef RangeTest Method Analysis TimePerformed AtPathologist SignatureCREATININE0.740.55 - 1.02 mg/dL TBHTBH EGFR-AF GRENADIAN>60>=60 mL/min/1.73m 2TBHTBH EGFR-NON AF GRENADIAN>60 >=60 mL/min/1.73m 2TBHSpecimen (Source)Anatomical Location / Laterality Collection Method / VolumeCollection TimeReceived Time10/12/2025 8:28 PM EST 10/12/2025 8:39 PM EST Narrative CLINISYNC - 10/12/2025 8:59 PM EST Authorizing ProviderResult TypeResult StatusCorey Kiesha DOCLINISYNCFinal Result Performing OrganizationAddressCity/State/ZIP CodePhone Number [facility] * ALL BUN (10/12/2025 8:28 PM EST)ComponentValueRef RangeTest MethodAnalysis TimePerformed AtPathologist SignatureBLOOD UREA OHUZZHHM05.07.0 - 18.0 mg/dL TBHSpecimen (Source)Anatomical Location / LateralityCollection Method / Volume Collection TimeReceived Time10/12/2025 8:28 PM EST10/12/2025 8:39 PM EST Narrative CLINISYNC - 10/12/2025 8:59 PM EST Authorizing ProviderResult TypeResult StatusCorey Kiesha DOCLINISYNCFinal Result Performing OrganizationAddressCity/State/ZIP CodePhone Number [facility] * (ABNORMAL) ALL CBC WITH AUTO DIFF (10/12/2025 8:28 PM EST)ComponentValueRef RangeTest MethodAnalysis TimePerformed AtPathologist SignatureTBH WBC12.1(H) 4.0 - 11.0 10 3/uLTBHTBH RBC3.84(L)4.20 - 5.40 10 6/uLTBHTBH HGB11.7(L)12.0 - 16.0 g/dLTBHTBH HCT34.5(L)36.0 - 48.0 %TBHTBH MCV89.881.0 - 99.0 fLTBHTBH MCH 30.526.7 - 34.0 pgTBHTBH MCHC33.929.9 - 35.2 g/dLTBHTBH RDW13.211.0 - 15.0 % TBHTBH LQM018453 - 450 10 3/uLTBHTBH MPV9.69.5 - 13.5 fLTBHNEUTROPHILS PERCENT AUTO67.543.0 - 75.0 %TBHLYMPHOCYTES PERCENT AUTO19.1(L)20.5 - 60.0 %TBH MONOCYTES PERCENT AUTO8.81.7 - 12.0 %TBHTBH EO %1.30.9 - 7.0 %TBHBASOPHILS PERCENT AUTO0.30.2 - 2.0 %TBHIMMATURE GRANULOCYTES PCT AUTO3.0(H)0.0 - 0.5 % TBHNEUTROPHILS ABSOLUTE AUTO8.1(H)1.4 - 6.5 10 3/uLTBHLYMPHOCYTES ABSOLUTE AUTO2.31.2 - 3.8 10 3/uLTBHMONOCYTES ABSOLUTE AUTO1.1(H)0.3 - 0.8 10 3/uLTBH TBH EO #0.20.0 - 0.7 10 3/uLTBHBASOPHILS ABSOLUTE AUTO0.00.0 - 0.1 10 3/uLTBH IMMATURE GRANULOCYTES ABS AUTO0.36(H)0.00 - 0.03 10 3/uLTBHSpecimen (Source) Anatomical Location / LateralityCollection Method / VolumeCollection Time Received Time10/12/2025 8:28 PM EST10/12/2025 8:39 PM EST Narrative JENNIFER - 10/12/2025 8:52 PM EST Authorizing ProviderResult TypeResult StatusCorey Kiesha DOCLINISYNCFinal Result Performing OrganizationAddressCity/State/ZIP CodePhone Number [facility] * (ABNORMAL) TBH URINE T PROTEIN CREAT RATIO (10/12/2025 7:05 PM EST)Component ValueRef RangeTest MethodAnalysis TimePerformed AtPathologist SignatureTOTAL PROTEIN URINE UZIFSQ38.5(H)<=11.9 mg/dLTBHCREATININE URINE EBAMAD04.2120.00 - 300.00 mg/dLTBHPROTEIN CREATININE RATIO URINE0.16TBHSpecimen (Source) Anatomical Location / LateralityCollection Method / VolumeCollection Time Received Time10/12/2025 7:05 PM EST10/12/2025 10:30 PM EST Narrative CLINISYNC - 10/12/2025 10:40 PM EST Authorizing ProviderResult TypeResult StatusCorey Kiesha DOCLINISYNCFinal Result Performing OrganizationAddressty/State/ZIP CodePhone Number [facility] * TBH UA (CLEAN/CATCH) TRACK REPAIR LABORER/MICRO IF IND. (10/12/2025 7:05 PM EST)ComponentValue Ref [...] Kiesha DOCLINISYNCFinal Result Performing OrganizationAddressCity/State/ZIP CodePhone Number [facility] documented in this encounter Visit Diagnoses Not on filedocumented in this encounter Care Teams Team MemberRelationshipSpecialtyStart DateEnd Date Eliceo Beltran DO [address] [place] [address] [facility] - [facility] Eliceo Beltran DO [address] [place] [address] PCP - Medical [employer]07/27/2412documented as of this encounter
--- OUTSIDE RECORDS SUMMARY | 2025-10-14 16:24 | XMS_ITS | Encounter Summary ---
Author Organization [facility] Address [address] [place] [place] [address] Care Team Providers Care Mh Teacher Name Role Phone Eliceo [place] DO Primary Care Provider [phone] CharlottecarolEliceo Unavailable [phone] Encounter Details DateTypeDepartmentCare Team (Latest Contact Info)Ymiwfffvpnj16/19/2025Bamboo flowsheet [facility] [place] [facility] [address] [place] [phone] Nathan Pop DO [address] [place], [place] [address] Social History Tobacco UseTypesPacks/DayYears UsedDateSmoking Tobacco: NeverSmokeless Tobacco: NeverAlcohol UseStandard Drinks/WeekCommentsNever0 (1 standard drink = 0.6 oz pure alcohol)caffeine: 1-2 cups per day, coffee and [id number] Health Literacy AnswerDate RecordedHow often do you [...] relatives?Once a week12/29/2024How often do you attend anabaptism or orthodox services?Patient kpcewlhc96/03/2025Do you belong to any clubs or organizations such as anabaptism groups, unions, [employer] or athletic leodan ups, or school groups?No12/29/2024How often do you attend meetings of the clubs or organizations you belong to?Patient hyczzrqv91/03/2025re you , , , , never , [...] hard at all12/29/2024PHQ-2AnswerDate RecordedPatient Health Questionnaire-2 Score0 07/30/2025[facility] [place] of Occupational Health - Occupational Stress QuestionnaireAnswerDate RecordedDo you feel stress - tense, restless, nervous, or anxious, or unable to sleep at night because yourmind is troubled all the time - these days?Only a zgnyhr1812/29/2024Exercise Vital SignAnswerDate Recorded On average, how many [...] the highest degree you have received?High school pbouqkhr67/29/2023 Estimated Date of CrirrnxxEvoobadfKqx98/03/2026ased on last menstrual period of 02/21/2025Sex and Gender InformationValueDate RecordedSex Assigned at BirthNot on fileLegal BgfVlxtki91/15/2023 7:18 PM EDTGender IdentityNot on file Sexual OrientationNot on 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 Not on fileNot on fileNot on filedocumented as of this encounter Plan of Treatment DateTypeDepartmentCare Team (Latest Contact Info)Vmppqremkji57/04/2025 9:00 AM ESTRoutine [facility] [place] [facility] [address] [phone] Nathan Pop DO [address] [place] [address] documented as of this encounter Visit Diagnoses Not on filedocumented in this encounter Care Teams Team MemberRelationshipSpecialtyStart DateEnd Date Eliceo Beltran DO [address] [address] PCP - GeneralFamily Medicine02/14/24 Eliceo Beltran DO [address] [place] [address] PCP - Medical [place] [employer]07/27/2412documented as of this encounter
--- OUTSIDE RECORDS SUMMARY | 2025-10-14 16:24 | XMS_ITS | Encounter Summary ---
Author Organization [facility] Address [address] [place] [address] Care Team Providers Care Wood Heel Flap Trimmer Name Role Phone Eliceo Beltran DO Primary Care Provider [phone] CharlottecarolEliceo Unavailable [phone] Encounter Details DateTypeDepartmentCare Team (Latest Contact Info)Wclbqbuasuj08/06/2025Telephone [facility] [place] [facility] [address] [place] [phone] Nathan Pop DO [address], [facility] Social History Tobacco UseTypesPacks/DayYears UsedDateSmoking Tobacco: NeverSmokeless Tobacco: NeverAlcohol UseStandard Drinks/WeekCommentsNever0 (1 standard drink = 0.6 oz pure alcohol)caffeine: 1-2 cups per day, coffee and [id number] Health Literacy AnswerDate RecordedHow often do you [...] week12/29/2024How often do you attend denominational or yarsani services?Patient jiculnok08/03/2025Do you belong to any clubs or organizations such as denominational groups, unions, [employer] or athletic leodan ups, or school groups?No12/29/2024How often do you attend meetings of the clubs or organizations you belong to?Patient aizuzkrn01/03/2025re you , , , , never , [...] RecordedPatient Health Questionnaire-2 Score0 07/30/2025[facility] [place] of Occupational Health - Occupational Stress QuestionnaireAnswerDate RecordedDo you feel stress - tense, restless, nervous, or anxious, or unable to sleep at night because yourmind is troubled all the time - these days?Only a cnqdho8812/29/2024Exercise Vital SignAnswerDate Recorded On average, how many [...] steady place to sleep or slept in [facility] (including now)?No09/19/2023Housing Stability Vital SignAnswerDate [...] the highest degree you have received?High school okearkwk72/29/2023 Estimated Date of GwnakrwiNcvplyvmUeb77/03/2026ased on last menstrual period of 02/21/2025Sex and Gender InformationValueDate RecordedSex Assigned at BirthNot on fileLegal BxsIegiev61/15/2023 7:18 PM EDTGender IdentityNot on file Sexual [...] Plan of Treatment DateTypeDepartmentCare Team (Latest Contact Info)Mzgqhcytanw02/04/2025 9:00 AM ESTRoutine [facility] [place] [facility] [address] [place] [address] Nahtan Pop DO [address] [place] [address] documented as of this encounter Visit Diagnoses Not on filedocumented in this encounter Care Teams Team MemberRelationshipSpecialtyStart DateEnd Date Eliceo Beltran DO [address] [facility] [address] [place] [address] PCP - GeneralFamily Medicine02/14/24 Eliceo Beltran DO [address] [facility] [address] [place] [address] PCP - Medical [employer]07/27/2412documented as of this encounter
--- OUTSIDE RECORDS SUMMARY | 2025-10-14 16:24 | XMS_ITS | Encounter Summary ---
Author Organization [employer] tem Address [facility] [id number] [address] [place] [address] Care Team Providers Care Thread Cutter Tender Name Role Phone Cruz Rodríguez MD Primary Care Provider [phone] Encounter Details DateTypeDepartmentCare Team (Latest Contact Info)Xfryqlqccdl98/11/2025Travel Social History Tobacco UseTypesPacks/DayYears UsedDateSmoking Tobacco: NeverSmokeless Tobacco: NeverAlcohol UseStandard Drinks/WeekCommentsNo0 (1 standard drink = 0.6 oz pure alcohol)AUDIT-CAnswerDate RecordedQ1: How often do you have a drink containing alcohol?Never09/10/2025Q2: How many drinks containing alcohol do you have on a typical day when you are drinking?Patient does not drink09/10/2025Q3: How often do you have six or more drinks on one occasion?Never09/10/2025hildcareAnswer Date ZcbmduggZxlarkwyzJgzvtmy51/13/2019EmploymentAnswerDate RecordedEmployment Ynigwqh7505/08/2019Hunger ScreeningAnswerDate RecordedWithin the past 12 months we worried whether our food would run out before we got money to buy more.Never True09/10/2025Within the past 12 months the food we bought just didn't last and we didn't have money to get more.Never True09/10/2025Purpose - LifeAnswerDate RecordedPurpose and direction in vppsRshhasc84/11/2021Estimated Date of LvgrfljcSpfshekqFve70/03/2026Based on last menstrual period of 02/21/2025 (Exact Date)Sex and Gender InformationValueDate RecordedSex Assigned at BirthNot on fileLegal KqcOlyluw49/07/2019 2:55 PM ESTGender IdentityNot on fileSexual OrientationNot on filedocumented as of this encounter Plan of Treatment DateTypeDepartmentCare Team (Latest Contact Info)Hzotuwyjtpq27/03/2025 11:00 AM ESTAppointment Maternal Medicine [place] [address] [place] [address] 11/03/2025 2:30 PM ESTOffice Visit Maternal- Medicine at [facility] [address] [place] [address] Kayleigh Rizzo, PA-C [address] [address] documented as of this encounter Visit Diagnoses Not on filedocumented in this encounter Care Teams Team MemberRelationshipSpecialtyStart DateEnd Date Cruz Rodríguez MD [address] [place] [address] PCP - GeneralFamily Medicine12/02/18documented as of this encounter
--- OUTSIDE RECORDS SUMMARY | 2025-10-14 16:24 | XMS_ITS | Clinical Summary ---
Author Organization [email or web address] tem Address [facility] [id number] [address] [place] [address] Care Team Providers Care Pile Driver Operator Barge Mounted Name Role Phone Cruz Rodríguez MD Primary Care Provider [phone] Allergies No known active allergies Medications MedicationSigDispense [...] ProblemNoted DateDiagnosed DateEssential hypertension affecting in third /10/2025Insulin controlled gestational diabetes mellitus (GDM) in third /26/2025Estimated Date of DeliveryCommentsYes 6Based on last menstrual period of 02/21/2025 (Exact Date) Encounters DateTypeDepartmentCare AczwFtxniukzpct60/14/2025Orders Only Maternal- Medicine at [address] [address] Zora Samuels, DIALLO Essential hypertension affecting in third trimester (Primary Dx); Insulin controlled gestational diabetes mellitus (GDM) in third trimester 10/08/2025Orders Only Maternal Medicine [place] [address] [facility] [address] [place] [address] Danae Ramirez, DIALLO Insulin controlled gestational diabetes mellitus (GDM) in third trimester (Primary Dx); Essential hypertension affecting in third trimester; Encounter for follow-up ultrasound of anatomy; History of pre-eclampsia in prior , currently ; Hx of delivery, currently , second fnxncittw80/11/2025 2:30 PM ESTTelemedicine Maternal- Medicine at [address] [place] [address] Kayleigh Rizzo, PA-C Insulin controlled gestational diabetes mellitus (GDM) in third trimester (Primary Dx); Essential hypertension affecting in third pkrcydpgn03/11/2025Travel 10/05/2025Telephone Maternal- Medicine at [facility] [address] [place] [address] Anjana Davalos RN 10/04/20254948Tjmlwg77/03/2025Telephone Maternal- Medicine at [facility] [address] [facility] [place] [address] Cha Harris, DIALLO 09/28/2025Orders Only Maternal- Medicine at [facility] [address] [facility] [place] [address] Kayleigh Rizzo, PA-C Essential hypertension affecting in third axydvnawq38/27/2025Telephone Maternal- Medicine at [facility] [address] [facility] [place] [address] Verito Gudino LD 09/21/2025Remote Patient Monitoring Maternal- Medicine at [facility] [address] [place] [address] Kayleigh Rizzo, PA-C Insulin controlled gestational diabetes mellitus (GDM) in third trimester (Primary Dx); Essential hypertension affecting in third ljqysxqaq41/23/2025Orders Only Maternal- Medicine at [facility] [address] [place] [address] Camila Arciniega, RESEARCH ENVIRONMENTAL SCIENTIST-CNM Essential hypertension affecting in third hutujrufd72/22/2025Telephone Maternal- Medicine at [facility] [address] [place] [address] Cha Harris, DIALLO 09/15/2025Orders Only Maternal- Medicine at [facility] [address] [place] [address] Kayleigh Rizzo, FORREST Essential hypertension affecting in third sgizgmlzu24/16/2025 11:00 AM EDTTelemedicine Maternal Medicine [place] [address] [facility] [address] [place] [address] Madhuri Monroy MD 28 weeks gestation of (Primary Dx); Insulin controlled gestational diabetes mellitus (GDM) in second trimester; Essential hypertension affecting in third yswwdwtof11/16/2025Orders Only Maternal- Medicine at [facility] [address] [place] [address] Zora Samuels RN Essential hypertension affecting in third trimester (Primary Dx); Insulin controlled gestational diabetes mellitus (GDM) in second trimester; Encounter for follow-up ultrasound of lkzlgqe5209/10/20250509Kpasms04/10/2025 3:00 PM EDTOffice Visit Maternal- Medicine at [facility] [address] [place] [address] Jean Carlos Pina MD Diet controlled gestational diabetes mellitus (GDM) in second trimester (Primary Dx); Essential hypertension affecting in third zplpleoth79/08/2025Travel 09/01/2025Telephone Maternal- Medicine at [facility] [address] [place] [address] Cha Harris RN 08/24/2025 1:30 PM EDTSupport Visit Maternal- Medicine at [facility] [address] [place] [address] Teena Sarmiento RN Kerline Steiner RD Gestational diabetes mellitus (GDM) in second trimester, gestational diabetes method of control udqbuvsdyvp66/28/8776Rgbtxc30/27/8157Pcbzgj61/26/2025bstract Maternal- Medicine at [facility] [address] [place] [address] External, Scanning Provider 08/19/2025Orders Only Maternal- Medicine at [facility] [address] [place] [address] Ref Prov, Not In System 08/18/2025bstract Maternal- Medicine at [facility] [address] [place] [address] Madhuri Monroy MD 08/18/2025Orders Only Maternal- Medicine at [facility] [address] [place] [address] Khalida Garrett RN History of pre-eclampsia in [...] or more drinks on one occasion?Never5ChildcareAnswer Date LkejfgysAckoafugzXtlgwxy82/13/2019EmploymentAnswerDate RecordedEmployment Lmtahwy8705/08/2019Hunger ScreeningAnswerDate RecordedWithin the past 12 months we worried whether our food would run out before we got money to buy more.Never True09/10/2025Within the past 12 months the food we bought just didn't last and we didn't have money to get more.Never True10/16/2025Purpose - LifeAnswerDate RecordedPurpose and direction in ubdqShfbdnc02/11/2021Estimated Date of RvlrutrvErdofwxyIfz89/03/2026Based on last menstrual period of 02/21/2025 (Exact Date)Sex and Gender InformationValueDate RecordedSex Assigned at BirthNot on fileLegal IutZoqwzz32/07/2019 2:55 PM ESTGender IdentityNot on fileSexual OrientationNot on file Last Filed Vital Signs Vital SignReadingTime TakenCommentsBlood Prvcjbzy560/801 10:34 AM EDT Pytgq67902/10/2025 2:48 PM EDTTemperature--Respiratory Ukfw892812/10/2018 11:10 AM ESTOxygen Jrtwkbetes20%12/10/2018 11:10 AM ESTInhaled Oxygen Concentration-- Dfswyd79.6 kg (160 lb)09/10/2025 10:34 AM RXXQossqb065.5 cm (5' 2.01 )09/04/2025 2:48 PM EDTBody Mass Index29.261 2:48 PM EDT Plan of Treatment DateTypeDepartmentCare Team (Latest Contact Info)Fnvurseqywn48/03/2025 11:00 AM ESTAppointment Maternal Medicine [address] [place] [address] 11/03/2025 2:30 PM ESTOffice Visit Maternal- Medicine at [facility] [address] [place] [address] Kayleigh Rizzo, PAAlbinC [address] [address] Health MaintenanceDue DateLast DoneCommentsDepression Ynlylhrfj07/08/2007dult BMI Follow Up Plan2013DTaP,Tdap and Td Vaccines (7 - Td or Tdap)2024 2014, 05/03/2000, 12/29/1997, Additional history existsInfluenza Vaccine 51RSV ( or age 60+ yrs) (1 - Risk 1-dose series)10/03/2025dult BMI Threumsto21Tobacco Screening Pap Smear Medical Devices Not on file Procedures Procedure NamePriorityDate/TimeAssociated DiagnosisCommentsUS MFM OB FOLLOW-UP, 1 GNPLNJtcnbin05/13/2025 8:55 AM EST Essential hypertension affecting in third trimester Insulin controlled gestational diabetes mellitus (GDM) in second trimester Encounter for follow-up ultrasound of anatomy US MFM COMPREHENSIVE ANATOMIC WFMMSVFxacret62/16/2025 10:56 AM EDT History of pre-eclampsia in prior , currently GLUCOSE TOLERANCE, 3 QPMZRVzipbqs32/20/2025 GLUCOSE TOLERANCE, WQRRHQUDsfpmzj19/20/2025 GLUCOSE TOLERANCE, 1 XINJAwssrsn24/20/2025 SECOND HOUR GLUCOSE TOLERANCE 100 GM ZRBSTncsvhx06/20/2025 ULTRASOUND SZZUSFMliohjm07/17/2025 3:39 PM EDTGLU 1H POST 50G LOADRoutine 08/12/2025 ULTRASOUND ARYNNQNzhxxuy98/20/2025 3:43 PM EDTAFP SINGLE MARKER SCRN, MATERNAL, CGZPBGqwhgkd61/20/2025 10:17 AM EDTfrom Last 3 Months Results * US MFM OB FOLLOW-UP, 1 FETUS (10/08/2025 8:55 AM EST) Only the most recent of2 resultswithin the time period is included. Anatomical RegionLateralityModalityOB-GYNUltrasoundSpecimen (Source)Anatomical Location / LateralityCollection Method / VolumeCollection TimeReceived Time 10/08/2025 9:08 AM EST Narrative 10/08/2025 11:56 AM EST NAME: ??JAYY REYNAGA : 1995 SEX: F Accession Number: [id number] ORDERING PHYSICIAN: MADHURI MONROY REFERRING PHYSICIAN: JONY MEJÍA Coding Procedures ? [id number]: Ultrasound, uterus, real time with image documentation, follow up,transabdominal ? approach per fetus Indication Screening for follow-up survey, Gestational diabetes, Chronic hypertension affecting , History of prior with pre-eclampsia , History of prior with delivery , Previous surgery to cervix -(D&C). History OB History ? 2. Para 1 ? B5O2Q5N0 Current Cell free DNA ?Low Risk analysis [...] (oz) ? 11 oz EFW by: ?Hadlock (IWK-XG-MJ-FL) Extended Tibia ??52.5 mm 31w 1d 20% Gerda Supervisor Garage ? 2.7 mm Head / Face / Neck Cephalic index 0.82 ? 75% Nicolaides Nasal bone: ?documented previously Extremities / Bony Struc FL / BPD ? 0.66 FL / HC ?0.19 FL / AC ?0.20 Other Structures FHR ?141 bpm Anatomy The following structures appear normal: Head/Neck: Cranium. Lateral ventricles. Cavum septi pellucidi. Parenchyma. Heart/Thorax: 4-chamber view. 3-vessel view. 0-pohvsj-ybtwzmr view. Bicaval view. Cardiac rhythm. ? Diaphragm. [...] MVP measures 5.1 cm. Recommendations Please see [facility] recommendations from prior clinical and/or ultrasound report [...] REYNAGA : 1995 SEX: F Accession Number: [id number] ORDERING PHYSICIAN: MADHURI MONROY REFERRING PHYSICIAN: JONY MEJÍA Coding Procedures 22615: Ultrasound, uterus, real time with image documentation, follow up, transabdominal approach per fetus Indication Screening for follow-up survey, Gestational diabetes, Chronic hypertension affecting , History of prior with pre-eclampsia , History of prior with delivery ,Previous surgery to cervix -(D&C). History OB History 2. Para 1 J1N4H3R4 Current Cell free DNA Low Risk analysis [...] EFW (oz) 11 oz EFW by: Hadlock (KPG-WM-HW-FL) Extended Tibia 52.5 mm 31w 1d 20% Gerda Supervisor Garage 2.7 mm Head / Face / Neck Cephalic index 0.82 75% Nicolaides Nasal bone: documented previously Extremities / Bony Struc FL / BPD 0.66 FL / HC 0.19 FL / AC 0.20 Other Structures FHR 141 bpm Anatomy The following structures appear normal: Head/Neck: Cranium. Lateral ventricles. Cavum septi pellucidi.Parenchyma. Heart/Thorax: 4-chamber view. 3-vessel view. 5-ozudzx-dhaomak view.Bicaval view. Cardiac rhythm. Diaphragm. Abdomen: Stomach. [...] as necessary. Authorizing ProviderResult TypeResult StatusMadhuri Monroy [facility] ORDERABLESFinal Result * 2nd hr Glucose Tolerance 100 gm load (08/15/2025)ComponentValueRef RangeTest MethodAnalysis TimePerformed AtPathologist SignatureGlucose Tolerance Test 2 Twqi402HHEPOKYV TRANSCRIBED RESULTSSpecimen (Source)Anatomical Location / LateralityCollection Method / VolumeCollection TimeReceived TimeBloodVenous blood / Unknown Narrative Authorizing ProviderResult TypeResult StatusNot In System Ref MasalaLAB BLOOD ORDERABLESFinal ResultPerforming OrganizationAddressCity/State/ZIP CodePhone Number MANUALLY TRANSCRIBED RESULTS * Glucose tolerance, 1 hour (08/15/2025)ComponentValueRef RangeTest Method Analysis TimePerformed AtPathologist SignatureGlucose Tolerance Test 1 Vjxq045 MANUALLY TRANSCRIBED RESULTSSpecimen (Source)Anatomical Location / Laterality Collection Method / VolumeCollection TimeReceived TimeBloodVenous blood / Unknown Narrative Authorizing ProviderResult TypeResult StatusNot In System Ref ProvLAB BLOOD ORDERABLESFinal ResultPerforming OrganizationAddressCity/State/ZIP CodePhone Number MANUALLY TRANSCRIBED RESULTS * Glucose tolerance, 3 hours (08/15/2025)ComponentValueRef RangeTest Method Analysis TimePerformed AtPathologist SignatureGlucose Tolerance Test 3 Sxsy867 MANUALLY TRANSCRIBED RESULTSSpecimen (Source)Anatomical Location / Laterality Collection Method / VolumeCollection TimeReceived TimeBloodVenous blood / Unknown Narrative Authorizing ProviderResult TypeResult StatusNot In System Ref ProvLAB BLOOD ORDERABLESFinal ResultPerforming OrganizationAddressCity/State/ZIP CodePhone Number MANUALLY TRANSCRIBED RESULTS * Glucose, tolerance fasting (08/15/2025)ComponentValueRef RangeTest Method Analysis TimePerformed AtPathologist SignatureGlucose Tolerance Test Scieapy21 MANUALLY TRANSCRIBED RESULTSSpecimen (Source)Anatomical Location / Laterality [...] TimePerformed AtPathologist SignatureGlucose, 1 hr PP 50GM yqdx095 MANUALLY TRANSCRIBED RESULTSSpecimen (Source)Anatomical Location / Laterality [...] Date Cruz Rodríguez MD [address] [address] PCP - GeneralFamily Medicine12/02/18
--- OUTSIDE RECORDS SUMMARY | 2025-10-14 16:24 | XMS_ITS | Encounter Summary ---
Author Organization [employer] tem Address [facility] [id number] [address] [place] [address] Care Team Providers Care Looseleaf Binder Coverer Name Role Phone Cruz Rodríguez MD Primary Care Provider [phone] Encounter Details DateTypeDepartmentCare Team (Latest Contact Info)Tirugugykvr63/09/2025Travel Social History Tobacco UseTypesPacks/DayYears UsedDateSmoking Tobacco: NeverSmokeless Tobacco: NeverAlcohol UseStandard Drinks/WeekCommentsNo0 (1 standard drink = 0.6 oz pure alcohol)AUDIT-CAnswerDate RecordedQ1: How often do you have a drink containing alcohol?Never09/10/2025Q2: How many drinks containing alcohol do you have on a typical day when you are drinking?Patient does not drink09/10/2025Q3: How often do you have six or more drinks on one occasion?Never09/10/2025hildcareAnswer Date HiscccwnBawkxkxioZjwhghj16/13/2019EmploymentAnswerDate RecordedEmployment Tqeoayc9805/08/2019Hunger ScreeningAnswerDate RecordedWithin the past 12 months we worried whether our food would run out before we got money to buy more.Never True09/10/2025Within the past 12 months the food we bought just didn't last and we didn't have money to get more.Never True09/10/2025Purpose - LifeAnswerDate RecordedPurpose and direction in sukwIsolfcd03/11/2021Estimated Date of IuhlafxuMdcajbosPgw84/03/2026Based on last menstrual period of 02/21/2025 (Exact Date)Sex and Gender InformationValueDate RecordedSex Assigned at BirthNot on fileLegal NqwLujeun65/07/2019 2:55 PM ESTGender IdentityNot on fileSexual OrientationNot on filedocumented as of this encounter Plan of Treatment DateTypeDepartmentCare Team (Latest Contact Info)Kavdcdrcusp29/03/2025 11:00 AM ESTAppointment Maternal Medicine [place] [address] [place] [address] 11/03/2025 2:30 PM ESTOffice Visit Maternal- Medicine at [facility] [address] [place] [address] Kayleigh Rizzo, PA-C [address] [address] documented as of this encounter Visit Diagnoses Not on filedocumented in this encounter Care Teams Team MemberRelationshipSpecialtyStart DateEnd Date Cruz Rodríguez MD [address] [place] [address] PCP - GeneralFamily Medicine12/02/18documented as of this encounter
--- OUTSIDE RECORDS SUMMARY | 2025-10-14 16:24 | XMS_ITS | Encounter Summary ---
Author Organization [facility] Address [address] [place] [address] Care Team Providers Care Material Disposition Inspector Name Role Phone NirajEliceo kauffman Primary Care Provider [phone] CharlottecarolEliceo Bryant DAY Unavailable [phone] Encounter Details DateTypeDepartmentCare Team (Latest Contact Info)Tnjfunvinum68/16/2025Clinisync Result Encounter [facility] Department Unsolicited Jony Pop DO [address] [facility] [place] [address] Social History Tobacco UseTypesPacks/DayYears UsedDateSmoking Tobacco: NeverSmokeless Tobacco: NeverAlcohol UseStandard Drinks/WeekCommentsNever0 (1 standard drink = 0.6 oz pure alcohol)caffeine: 1-2 cups per day, coffee and qzrO2943 Health Literacy AnswerDate RecordedHow often do you [...] relatives?Once a week12/29/2024How often do you attend caodaism or holiness services?Patient /03/2025Do you belong to any clubs or organizations such as caodaism groups, unions, [employer] or athletic leodan ups, or school groups?No12/29/2024How often do you attend meetings of the clubs or organizations you belong to?Patient revookma44/03/2025re you , , , , never , [...] RecordedPatient Health Questionnaire-2 Score0 07/30/2025[facility] [place] of Occup[facility] Health - Occupational Stress QuestionnaireAnswerDate RecordedDo you feel stress - tense, restless, nervous, or anxious, or unable to sleep at night because yourmind is troubled all the time - these days?Only a nuqtpx1112/29/2024Exercise Vital SignAnswerDate Recorded On average, how many [...] the highest degree you have received?High school qeehccqw91/29/2023 Estimated Date of RfdgfmvrOoaeyddhDfv04/03/2026ased on last menstrual period of 02/21/2025Sex and Gender InformationValueDate RecordedSex Assigned at BirthNot on fileLegal CoxQbooea63/15/2023 7:18 PM EDTGender IdentityNot on file Sexual OrientationNot on 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 [facility] [address] [place], [facility] documented as of this encounter Procedures Procedure NamePriorityDate/TimeAssociated DiagnosisCommentsUS OB BPP W NON-HEWUZJ1110/11/2025 1:46 PM EST documented in this encounter Results * US OB BPP W NON-STRESS (10/11/2025 1:46 PM EST)Anatomical Region LateralityModalityOtherSpecimen (Source)Anatomical Location / Laterality Collection Method / VolumeCollection TimeReceived Time10/11/2025 1:46 PM EST Narrative 10/11/2025 1:48 PM EST [facility] ?[address] ? [place] [address] ? Ultrasound Report ? Signed ? Patient: DRISS GAMA ?MR#: [id number] ?? : 1995 ?Acct:[id number] ?? Age/Sex: 30 / F ?ADM Date: 10/10/25 ?? Loc: [facility] ? Attending Dr: Jony Pop D.O. ? Ordering Physician: Jony Pop D.O. ?? Date of Service: 10/10/25 ?? Procedure(s): US OB BPP w non-stress ?? Accession Number(s): [id number] ? cc: Jony Pop D.O.; Yomaira BELTRAN ? [facility] ? [address] ? [place] [address] ? Patient Name: ?? DRISS Daniel GAMA ? MRN: [id number] ? date: 1995 ?Sex: F ?? Assigned Patient Location: [facility] ?? Current Patient Location: [facility] ?? Accession/Order Number: [id number] ?? Exam Date: 10/10/2025 ??10:49 ?Report Date: [...] Dictation Location: RADIO-PC-20 ? Electronically authenticated by: [id number] ??Y ?? Date: 10/11/2025 ??13:46 ? Dictated By: ?Jp Morillo D.O. ? Signed By: ?10/11/25 1348 ? DD/ 1346 ? TD/TT: ? Donor Support Technician: Procedure Note Radiology, Radiologist, - 10/11/2025 [place] [address] Ultrasound Report Signed Patient: DRISS AGMA MMR#: [id number] : 1995Acct:[id number] Age/Sex: 30 / FADM Date: 10/10/25 Loc: [facility] [place] Attending Dr: Jony Pop D.O. Ordering Physician: Jony Pop D.O. Date of Service: 10/10/25 Procedure(s): US OB BPP w non-stress Accession Number(s): [id number] cc: Jony Pop D.O.; Yomaira BELTRAN The [place] [id number] Patient Name: DRISS GAMA MRN: [id number] date: 1995 Sex: F Assigned Patient Location: [facility] Current Patient Location: [facility] [place] Accession/Order Number: [id number] Exam Date: 10/10/2025 10:49 Report Date: 10/11/2025 [...] Morillo M.D. 10/11/2025 1:46 PM Dictation Location: [facility] Electronically authenticated by: [id number] Y Date: 3:46 Dictated By: Jp Morillo D.O. Signed By:10/11/25 1348 DD/ 1346 TD/TT: Donor Support Technician: Authorizing ProviderResult TypeResult StatusCorey Kiesha DOCLINISYNC IMAGINGFinal Result documented in this encounter Visit Diagnoses Not on filedocumented in this encounter Care Teams Team MemberRelationshipSpecialtyStart DateEnd Date Eliceo Beltran DO [address] [place] [address] PCP - GeneralFamily Medicine02/14/24 Eliceo Beltran DO [address] [place] [address] PCP - Medical [place] [employer]07/27/2412documented as of this encounter
[2025-10-14 16:27] VITALS: BP 129/67; PULSE 100
== END 2025-10-14 16:57 | disposition home or self-care (01) ==
LOC: FBCO 16:18 → FBC 16:21
PROVIDERS: Family Provider Family Medicine; PCP Family Medicine; Visit Provider Obstetrics & Gynecology
DX: O24.419 Gestational diabetes mellitus in pregnancy, unspecified control (principal); O16.9 Unspecified maternal hypertension, unspecified trimester; Z3A.00 Weeks of gestation of pregnancy not specified
CPT/HCPCS: 59025

== ENCOUNTER 2025-10-16 13:14 | Observation (INO) | payer OTHER, SELFPAY ==
--- OUTSIDE RECORDS SUMMARY | 2025-10-06 14:30 | XMS_ITS | Encounter Summary ---
Author Organization [facility] [employer] [facility] tem Address [id number] [address] [place] [address] Care Team Providers Care Canteen Manager Name Role Phone Cruz Rodríguez MD Primary Care Provider [phone] Encounter Details DateTypeDepartmentCare Team (Latest Contact Info)Ftbtsfzmksh45/11/2025 2:30 PM ESTTelemedicine Maternal- Medicine at [facility] [address] [place] [address] Kayleigh Rizzo PALuis Angel [address] [address] Insulin controlled gestational diabetes mellitus (GDM) in [...] or more drinks on one occasion?Never5ChildcareAnswer Date XfwnxcwwSprlgflqtFjzxrwy25/13/2019EmploymentAnswerDate RecordedEmployment Upxlvlx6105/08/2019Hunger ScreeningAnswerDate RecordedWithin the past 12 months we worried whether our food would run out before we got money to buy more.Never True09/10/2025Within the past 12 months the food we bought just didn't last and we didn't have money to get more.Never True09/10/2025Purpose - LifeAnswerDate RecordedPurpose and direction in igtySozcjvm69/11/2021Estimated Date of BdbpyjudYogfaymeCgz17/03/2026Based on last menstrual period of 02/21/2025 (Exact Date)Sex and Gender InformationValueDate RecordedSex Assigned at BirthNot on fileLegal MtiNmvhfy02/07/2019 2:55 PM ESTGender IdentityNot on fileSexual OrientationNot on filedocumented as of this encounter Progress Notes * Kayleigh Rizzo PA-C - 10/06/2025 2:30 PM EST Maternal- Medicine Consultation VIDEO Patient is present at work, provider present at [facility] HISTORY OF PRESENT ILLNESS: Driss Gama is a 30 y.o. female at 32w3d due on Estimated Date of Delivery: 11/28/25 complicated by cHTN, GDMA2, h/o preeclampsia. Patient is feeling well today. She denies contractions, vaginal bleeding, leaking fluid. She appreciates movement. Patient denies headache, visual symptoms, right upper abdominal pain,SOB, chest pain. Has been having intermittent swelling in hands and feet. BG log review: F: all under goal excpet #1 All post prandials well controlled Taking Lantus 5u in AM, 23u in PM Taking Labetalol 200mg TID, Bps at home have been 120-130/80 Denies any values <60 day or night LMP 02/21/2025 (Exact Date) PAST OBSTETRICAL HISTORY: OB History 2 Para [...] pen, Prime with 2 units and give 5 units every morning and 23 units subQ at bedtime., Disp: 15 mL, [...] mouth in the morning., Disp: , Rfl: LABS: \ Lab Results Component Value Date HGBA1C 5.3 05/04/2025 No components found for: POCA1C REVIEW OF SYSTEMS: Head and Neck: Negative for any dizziness and headaches. Cardiovascular and Respiratory System: Denies any chest pain, shortness of breath, and coughing. Abdominal and System: Denies any abdominal pain, nausea, vomiting, vaginal bleeding, and vaginaldischarge PHYSICAL EXAMINATION: Gen: NAD DISCUSSION Glucose goals in : Fasting 60 - 95: Mean fasting glucose values are important in managing diabetes in women because they provide overall glycemic estimate, and are predictive of increased fat mass in the women???s offspring. Increased fat mass has been shown to be associated with the development of childhood obesity, and diabetes. One hour postprandial 90 - 140: Postprandial measurements are important in management of diabetes in because they are associated with incidence of large for gestational age infants, and lower rates of delivery for cephalopelvic disproportion when well controlled. Discussed monitoring for hypogylcemia, signs/symptoms of hypoglycemia, and examples of treatment ofhypoglycemia (15/15 rule). Discussed her current diet and her awareness of grams of carbohydrate per meal. Reviewed recommendations - 30g carbohydrate for breakfast, 45-60g carbohydrate for lunch and dinner, 15g carbohydrate for snacks, incorporating sufficient protein with each meal and ideally having half of plate be fruits and vegetables (with awareness of which fruits typically spike blood glucose). Encouraged her to be aware of carbohydrate intake and note which foods causing values above goal. Encouraged her on diet modifications. PLAN - Current blood glucose control: well controlled - Medication: - Lantus 5u in AM, 23u in PM - continue - Continue aspirin 81mg once daily - Labs - A1c: 5.3 on 05/04/25 - Baseline preeclampsia labs: CMP, Plts, urine P/C ratio - growth ultrasounds every 4 weeks after 28 weeks - Last growth done 09/10 EFW measures at the 50%, AC measures at the 62% - Recommend the following for testing, which can be done with primary OB: - NST twice weekly and LEONEL once weekly at 32 weeks - Delivery recommendations : - Recommend delivery at 38 weeks, pending blood pressure - Evening prior to delivery, taking 1/2 of long acting PM dose. On morning of delivery, do not needto take long acting AM dose - If patient's blood pressures are recurrently >140/90s or if she ever experiences blood pressures greater than 160/110, would recommend evaluation for preeclampsia in the hospital. Reviewed theseparameters and symptoms with the patient. She also has a blood pressure cuff at home - Obtain a 2-hour GTT 6-8 weeks . Also recommend yearly evaluation of blood glucose as patient is at an increased risk of developing diabetes later on Labor symptoms, preeclampsia sign/symptoms, and movement precautions reviewed. Follow up in 4 weeks with Maternal- Medicine. I asked her to keep sending values to us weekly by e-mail to: [email or web address] or by fax to: [phone] Kayleigh Rizzo PA-C Maternal- Medicine Office phone: [phone] Kayleigh Rizzo PA-C 10/06/25 2075 documented in this encounter Plan of Treatment DateTypeDepartmentCare Team (Latest Contact Info)Mdnjfbqkado06/03/2025 11:00 AM ESTAppointment Maternal Medicine [place] [address] [place] [address] 11/03/2025 2:30 PM ESTOffice Visit Maternal- Medicine at [facility] [address] [place] [address] Kayleigh Rizzo, PALuis Angel [address] [address] documented as of this encounter Visit Diagnoses Diagnosis Insulin controlled gestational diabetes mellitus (GDM) in third trimester- Primary Essential hypertension affecting in third trimester documented in this encounter Care Teams Team MemberRelationshipSpecialtyStart DateEnd Date Cruz Rodríguez MD [address] [place] [address] PCP - GeneralFamily Medicine12/02/18documented as of this encounter
--- OUTSIDE RECORDS SUMMARY | 2025-10-14 15:30 | XMS_ITS | Encounter Summary ---
Author Organization [facility] Address [address] [place] [address] Care Team Providers Care Flour Inspector Name Role Phone CharlotteEliceo medina Primary Care Provider [phone] Charlottecarol Eliceo Hurtado DO Unavailable [phone] Encounter Details DateTypeDepartmentCare Team (Latest Contact Info)Xxnbrrklcda21/19/2025 3:30 PM ESTRoutine [facility] [address] [place] [address] Nathan Pop DO [address] [facility] [address] Shereen Armstrong, [facility]11 33 weeks gestation of ([facility]); Third trimester ([facility]) Social History Tobacco UseTypesPacks/DayYears UsedDateSmoking Tobacco: NeverSmokeless Tobacco: NeverAlcohol UseStandard Drinks/WeekCommentsNever0 (1 standard drink = 0.6 oz pure alcohol)caffeine: 1-2 cups per day, coffee and iveH2139 Health Literacy AnswerDate RecordedHow often do you [...] relatives?Once a week12/29/2024How often do you attend catholic or amish services?Patient snjlpolo19/03/2025Do you belong to any clubs or organizations such as catholic groups, unions, fraMr Po Media or athletic leodan ups, or school groups?No12/29/2024How often do you attend meetings of the clubs or organizations you belong to?Patient amzbetfu97/03/2025re you , , , , never , [...] RecordedPatient Health Questionnaire-2 Score0 07/30/2025[facility] [place] of Occupational Health - Occupational Stress QuestionnaireAnswerDate RecordedDo you feel stress - tense, restless, nervous, or anxious, or unable to sleep at night because yourmind is troubled all the time - these days?Only a pszcnw0712/29/2024Exercise Vital SignAnswerDate Recorded On average, how many [...] place to sleep or slept in [facility] (including now)?No09/19/2023Housing Stability Vital SignAnswerDate RecordedIn [...] the highest degree you have received?High school pwhkixfr67/29/2023 Estimated Date of NphtgkziDpwmbpfeKqh33/03/2026ased on last menstrual period of 02/21/2025Sex and Gender InformationValueDate RecordedSex Assigned at BirthNot on fileLegal QdmXzjhxb09/15/2023 7:18 PM EDTGender IdentityNot on file Sexual OrientationNot on 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 Not on fileNot on fileNot on filedocumented as of this encounter Last Filed Vital Signs Vital SignReadingTime TakenCommentsBlood Qojgqjcn904/8410/14/2025 3:29 PM EST Pulse--Temperature--Respiratory Rate--Oxygen Saturation--Inhaled Oxygen Concentration--Lihhij20.3 kg (168 lb 1.9 oz)10/14/2025 3:29 PM ESTHeight--Body Mass Index30.75007/30/2025 3:36 PM EDTdocumented in this encounter Plan of Treatment DateTypeDepartmentCare Team (Latest Contact Info)Pwilbaqynol54/04/2025 9:00 AM ESTRoutine [facility] [address] [place] [address] Nathan Pop DO [address] [facility] [place] [address] documented as of this encounter Procedures Procedure NamePriorityDate/TimeAssociated DiagnosisCommentsPOCT URINALYSIS NMCMDRPKYamyjfl53/19/2025 3:40 PM EST 33 weeks gestation of ([facility]) Third trimester ([facility]) documented in this encounter Results * (ABNORMAL) [...] / LateralityCollection Method / VolumeCollection Time Received ZjvaWjrgr34/19/2025 3:40 PM EST Narrative Authorizing ProviderResult TypeResult StatusCorey Kiesha DOPOINT OF CARE TEST ENTER/EDIT ORDERABLESFinal Result documented in this encounter Visit Diagnoses Diagnosis 33 weeks gestation of ([facility]) Third trimester ([facility]) state, incidental documented in this encounter Care Teams Team MemberRelationshipSpecialtyStart DateEnd Date Eliceo Beltran DO [address] [place] [address] PCP - GeneralFamily Medicine02/14/24 Eliceo Beltran DO [address] [place] [address] PCP - Medical [employer]07/27/2412documented as of this encounter
--- OUTSIDE RECORDS SUMMARY | 2025-10-16 13:19 | XMS_ITS | Encounter Summary ---
Author Organization [facility] Address [address] [place] [address] Care Team Providers Care Spar Cap Beveler Name Role Phone Eliceo Beltran Primary Care Provider [phone] CharlottegeovaniEliceo kauffman Unavailable [phone] Encounter Details DateTypeDepartmentCare Team (Latest Contact Info)Cafrunhstos14/08/2025Clinisync Result Encounter [facility] Unsolicited Steph Keane, DEVYN [address] [facility] [place] [address] Social History Tobacco UseTypesPacks/DayYears UsedDateSmoking Tobacco: NeverSmokeless Tobacco: NeverAlcohol UseStandard Drinks/WeekCommentsNever0 (1 standard drink = 0.6 oz pure alcohol)caffeine: 1-2 cups per day, coffee and [id number] Health Literacy AnswerDate RecordedHow often do you [...] relatives?Once a week12/29/2024How often do you attend jainism or baptism services?Patient clfxydxu41/03/2025Do you belong to any clubs or organizations such as jainism groups, unions, Comeks or athletic leodan ups, or school groups?No12/29/2024How [...] Questionnaire-2 Score0 07/30/2025[place] [facility] [place] [facility] [employer] - Occupational Stress QuestionnaireAnswerDate RecordedDo you feel stress - tense, restless, nervous, or anxious, or unable to sleep at night because yourmind is troubled all the time - these days?Only a ewtpvp8812/29/2024Exercise Vital SignAnswerDate Recorded On average, how many [...] steady place to sleep or slept in [facility] (including now)?No09/19/2023Housing Stability Vital SignAnswerDate RecordedIn [...] the highest degree you have received?High school zwyextuk18/29/2023 Estimated Date of EswiqymmWdkiuwejNxt59/03/2026ased on last menstrual period of 02/21/2025Sex and Gender InformationValueDate RecordedSex Assigned at BirthNot on fileLegal SesJsviyz37/15/2023 7:18 PM EDTGender IdentityNot on file Sexual OrientationNot on 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 Not on fileNot on fileNot on filedocumented as of this encounter Plan of Treatment DateTypeDepartmentCare Team (Latest Contact Info)Kfuwdbymfcq75/04/2025 9:00 AM ESTRoutine [facility] [place] [facility] [address] [place] [phone] Nathan Pop, DO [address] [facility] [place] [address] documented as of this encounter Procedures Procedure NamePriorityDate/TimeAssociated DiagnosisCommentsUS OB BPP W NON-ATOPXV8710/03/2025 11:36 AM EST documented in this encounter Results * US OB BPP W NON-STRESS (10/03/2025 11:36 AM EST)Anatomical Region LateralityModalityOtherSpecimen (Source)Anatomical Location / Laterality Collection Method / VolumeCollection TimeReceived Time10/03/2025 11:36 AM EST Narrative 10/03/2025 11:38 AM EST [facility] ?[address] ? [place] [address] ? Ultrasound Report ? Signed ? Patient: DRISS GAMA ?MR#: [id number] ?? : 1995 ?Acct:[id number] ?? Age/Sex: 30 / F ?ADM Date: 10/03/25 ?? Loc: US ? Attending Dr: Steph Keane ? Ordering Physician: Steph Keane ?? Date of Service: 10/03/25 ?? Procedure(s): US OB BPP w non-stress ?? Accession Number(s): [id number] ? cc: Steph Keane; Yomaira BELTRAN ? [facility] ? [address] ? [place] [address] ? Patient Name: ?? DRISS Sanchez JAYY ? MRN: [id number] ? date: 1995 ?Sex: F ?? Assigned Patient Location: US ?? Current Patient Location: ? Accession/Order Number: [id number] ?? Exam Date: 10/03/2025 ??10:53 ?Report Date: [...] Dictation Location: RADIO-PC-17 ? Electronically authenticated by: [id number] ??Y ?? Date: 10/03/2025 ??11:36 ? Dictated By: ?Will Faria M.D. ? Signed By: ?10/03/25 1138 ? DD/ 1136 ? TD/TT: ? Technical Product Manager: Procedure Note Radiology, Radiologist, - 10/03/2025 [place] [address] Ultrasound Report Signed Patient: DRISS GAMA MMR#: [id number] : 1995Acct:[id number] Age/Sex: 30 / FADM Date: 10/03/25 Loc: US Attending Dr: Steph Keane Ordering Physician: Steph Keane Date of Service: 10/03/25 Procedure(s): US OB BPP w non-stress Accession Number(s): [id number] cc: Steph Keane; Yomaira BELTRAN The [address] [address] Patient Name: DRISS GAMA MRN: [id number] date: 1995 Sex: F Assigned Patient Location: [place] Current Patient Location: Accession/Order Number: [id number] Exam Date: 10/03/2025 10:53 Report Date: 10/03/2025 [...] Faria M.D. 10/03/2025 11:36 AM Dictation [facility] Electronically authenticated by: [id number] Y Date: 1:36 Dictated By: Will Faria M.D. Signed By:10/03/25 1138 DD/ 1136 TD/TT: Technical Product Manager: Authorizing ProviderResult TypeResult StatusClintmelissa Lakhwinder NPCLINISYNC IMAGING Final Result documented in this encounter Visit Diagnoses Not on filedocumented in this encounter Care Teams Team MemberRelationshipSpecialtyStart DateEnd Date Eliceo Beltran DO [address] [place] [address] PCP - GeneralFamily Medicine02/14/24 Eliceo Beltran DO [address] [place] [address] PCP - Medical [place] Commercial/documented as of this encounter
--- OUTSIDE RECORDS SUMMARY | 2025-10-16 13:19 | XMS_ITS | Encounter Summary ---
Author Organization [employer] [facility] tem Address [id number] [address] [place] [address] Care Team Providers Care Health Care Law Specialist Name Role Phone Cruz Rodríguez MD Primary Care Provider [phone] Reason for Referral * Diagnostic Imaging (Routine) - Pending ReviewSpecialtyDiagnoses / Procedures Referred By ContactReferred To ContactMaternal and Medicine Diagnoses Essential hypertension affecting in third trimester Insulin controlled gestational diabetes mellitus (GDM) in third trimester Procedures [facility] with or without consult Jean Carlos Pina MD [address] [facility], [address] [place] [address] Phone: tel: fax: Maternal- Medicine at [facility] [address] [place] [address] Phone: tel: fax: Referral IDStatusReasonStart DateExpiration DateVisits RequestedVisits [id number] Encounter Details DateTypeDepartmentCare Team (Latest Contact Info)Dmhhclbkdew75/14/2025Orders Only Maternal- Medicine at [facility] [address] [place] [address] Zora Samuels RN Essential hypertension affecting in [...] or more drinks on one occasion?Never5ChildcareAnswer Date XcnygfiuPtxgbkqijNavwazz02/13/2019EmploymentAnswerDate RecordedEmployment Vuodmwl1705/08/2019Hunger ScreeningAnswerDate RecordedWithin the past 12 months we worried whether our food would run out before we got money to buy more.Never True09/10/2025Within the past 12 months the food we bought just didn't last and we didn't have money to get more.Never True09/10/2025Purpose - LifeAnswerDate RecordedPurpose and direction in rviwHnmobbp46/11/2021Estimated Date of VdnbufzrMlgetzxnYyr50/03/2026Based on last menstrual period of 02/21/2025 (Exact Date)Sex and Gender InformationValueDate RecordedSex Assigned at BirthNot on fileLegal UwsLiojzw66/07/2019 2:55 PM ESTGender IdentityNot on fileSexual OrientationNot on filedocumented as of this encounter Plan of Treatment DateTypeDepartmentCare Team (Latest Contact Info)Unfhzueemen77/03/2025 11:00 AM ESTAppointment Maternal Medicine [place] [address] [place] [phone] 11/03/2025 2:30 PM ESTOffice Visit Maternal- Medicine at [facility] [address] [facility] [place] [address] Kayleigh Rizzo PA-C [address] [facility] [address] [place] [address] NameTypePriorityAssociated DiagnosesOrder ScheduleUS MFM with or without [...] DateEnd Date Cruz Rodríguez MD [address] [place] [address] PCP - GeneralFamily Medicine12/02/18documented as of this encounter
--- OUTSIDE RECORDS SUMMARY | 2025-10-16 13:19 | XMS_ITS | Encounter Summary ---
Author Organization [facility] tem Address [id number] [address] [place] [address] Care Team Providers Care Burnisher Name Role Phone Cruz Rodríguez MD Primary Care Provider [phone] Reason for Referral * Diagnostic Imaging (Routine) [...] with or without consult Nathan Pop DO [address] [place] [address] [place] [address] Phone: tel: fax: Maternal- Medicine at [facility] [address] [place] [address] Phone: tel: fax: Referral IDStatusReasonStart DateExpiration DateVisits RequestedVisits [id number] [id number] Encounter Details DateTypeDepartmentCare Team (Latest Contact Info)Uuflddbbxud37/13/2025Orders Only Maternal Medicine [place] [address] [place] [phone] Danae Ramirez RN Insulin controlled gestational diabetes [...] or more drinks on one occasion?Never5ChildcareAnswer Date XkfgwjjqBavosmonvYvdvvbh59/13/2019EmploymentAnswerDate RecordedEmployment Oolffne2405/08/2019Hunger ScreeningAnswerDate RecordedWithin the past 12 months we worried whether our food would run out before we got money to buy more.Never True09/10/2025Within the past 12 months the food we bought just didn't last and we didn't have money to get more.Never True09/10/2025Purpose - LifeAnswerDate RecordedPurpose and direction in ffdcKkdpokc90/11/2021Estimated Date of XwwlagdoAihyftmeJcq90/03/2026Based on last menstrual period of 02/21/2025 (Exact Date)Sex and Gender InformationValueDate RecordedSex Assigned at BirthNot on fileLegal HvnHyzyfv71/07/2019 2:55 PM ESTGender IdentityNot on fileSexual OrientationNot on filedocumented as of this encounter Plan of Treatment DateTypeDepartmentCare Team (Latest Contact Info)Zudlscjbamy95/03/2025 11:00 AM ESTAppointment Maternal Medicine [place] [address] [place] [address] 11/03/2025 2:30 PM ESTOffice Visit Maternal- Medicine at [facility] [address] [place] [phone] Kayleigh Rizzo PA-C [address] [address] NameTypePriorityAssociated DiagnosesOrder ScheduleUS MFM with or without [...] Cruz Rodríguez MD [address] [place] [address] PCP - GeneralFamily Medicine12/02/18documented as of this encounter
--- OUTSIDE RECORDS SUMMARY | 2025-10-16 13:19 | XMS_ITS | Clinical Summary ---
Author Organization [facility] Address [address] [place] [address] Care Team Providers Care Billet Worker Name Role Phone Eliceo Beltran DO Primary Care Provider [phone] lEiceo Beltran DO Unavailable [phone] Allergies No known active allergies Medications MedicationSigDispense QuantityRefillsLast FilledStart DateEnd DateStatus metoprolol succinate XL (Toprol-XL) 25 MG 24 hr tablet Indications:Hypertension, unspecified typeTake 1 tablet by mouth daily 90 tablet 5Active Vit-Fe Fumarate-FA ( Vitamins) 28-0.8 MG tablet Indications:, unspecified gestational age ([facility]),Encounter for supervision of normal first in first trimester ([facility])Take 1 tablet by mouth Daily 30 tablet 110/6Active Alcohol Swabs (Alcohol Prep Pad) 70 % pads Indications:Gestational diabetes mellitus (GDM), antepartum, gestational diabetes method of control unspecified([facility]),Elevated glucose tolerance test Apply 1 Pad topically Daily Use four times daily to check FSBS. 150 each 5Active Blood Glucose Monitoring Suppl (D-Care Glucometer) w/Device kit Indications:Gestational diabetes mellitus (GDM), antepartum, gestational diabetes method of control unspecified([facility]),Elevated glucose tolerance test1 kit Daily Use four [...] Inject 13 Units under the skin at rvgkryg92/21/2025Active Lancets Ultra Thin misc Indications:Gestational diabetes mellitus (GDM), antepartum, gestational diabetes method of control unspecified([facility]),Elevated glucose tolerance test1 each by In Vitro route Daily Use to check FSBS four times daily 150 each 51Expired Glucose Blood (Blood Glucose Test) strip Indications:Gestational diabetes mellitus (GDM), antepartum, gestational diabetes method of control unspecified([facility]),Elevated glucose tolerance test1 strip by In Vitro route Daily Use in the morning prior to breakfast, 1 hour after each meal for atotal of 4times daily. 150 strip Expired Active Problems ProblemNoted DateDiagnosed Date33 weeks gestation of ([facility]) 10/14/2025Third trimester ([facility])10/14/20257440Xtebjdwx77/29/2025 Sjcgoaouhuz90/26/2024Obesity (BMI 30-39.9)02/19/2024cquired equinus deformity of foot03/29/2023isplacement of cervical intervertebral disc without myelopathy 03/29/20238414Xglczznzxvqy56/04/3274Chuhammmvvbim21/04/5901Aqgrhljuiocjb67/04/2023 Cyazwirgmvnf54/04/2023 Assessment & Plan (07/30/2025 4:00 PM EDT): Record Blood Pressures 2-4 times weekly and record. Return with readings at next appointment. Call with readings if sees significant changes Intractable migraine without aura and with status npviyuzhhkn61/04/2023Migraines 03/29/2023hronic pelvic pain in zfrlsa5103/29/2023ain in female genitalia on pvjpveowkab64/04/2023ain on mxwxppuqpb75/04/2023anic qnzukglk38/04/2023 Patellofemoral disorders, left knee03/29/2023atellofemoral disorders, right knee03/29/2023osterior calcaneal wvuvcubkr74/04/2023Scapular dyskinesis 03/29/20237690Wzrtkjxxi45/04/2023Seasonal allergic rhinitis due to tbsclr3703/29/2023 Tachycardia, vcvbjxrqas37/04/2023Tension ojlogeef93/04/2023Vitamin B12 grcrtvelhl26/04/2023Vitamin D kplydckzst36/04/2023hronic right shoulder pain 03/29/2023Estimated Date of WwfhwlfqVumbvqmhOvq35/03/2026ased on last menstrual period of 02/21/2025 Encounters DateTypeDepartmentCare MoiuNextklptnxd51/19/2025 3:30 PM ESTRoutine [facility] [place] [address] Jony Pop, DO 33 weeks gestation of ([facility]); Third trimester ([facility])10/14/2025amboo flowsheet [facility] [address] [place] [address] Jony Pop, DO 10/13/20258849Czckaw86/17/2025Clinisync Result Encounter NOMS External Department Unsolicited Jony Pop, DO 5Clinisync Result Encounter NOMS External Department Unsolicited Jony Pop, DO 10/09/2025bstract NOMShalonda MOODY [address] [place] [address] Jony Pop, DO 5Clinisync Result Encounter NOMS External Department Unsolicited Steph Keane NP 10/01/2025Telephone NOMShalonda MOODY [address] [place] [address] Jony Pop, DO 09/30/2025 3:00 PM ESTRoutine [facility] Patti [facility] [address] [place] [address] Jony Pop, DO Third trimester ([facility]); 31 weeks gestation of ([facility]); Pre-eclampsia in third trimester ([facility])09/30/2025amboo flowsheet [facility] [address] [place] [address] Jony Pop, DO 09/26/2025linisync Result Encounter NOMS External Department Unsolicited Steph Keane NP 09/23/20251669Gpwkcv62/25/2025linisync Result Encounter NOMS External Department Unsolicited Steph Keane NP 09/16/2025 3:20 PM EDTRoutine [facility] [address] [place] [address] Jony Pop, DO 29 weeks gestation of ([facility]); Third trimester ([facility]); Hypertension affecting , antepartum ([facility]); Gestational diabetes mellitus (GDM), antepartum, gestational diabetes method of control unspecified([facility])09/16/2025amb flowsheet [facility] Patti OBMICHELLEN [address] [place] [address] Jony Pop, DO 09/11/2025bstract [facility] Patti OBGYRonen [address] [place] [address] Jony Pop, DO 09/09/20250032Lpdvqz30/09/2025 3:50 PM EDTRoutine [facility] [address] [place] [address] Steph Keane NP Hypertension affecting , antepartum ([facility]) (Primary Dx); 27 weeks gestation of ([facility]); Second trimester ([facility])09/03/2025linisync Result Encounter NOMS External Department Unsolicited Jony Pop, DO 09/03/2025amboo flowsheet [facility] [address] [place] [address] Steph Keane NP 09/02/20253288Erkwzv62/04/2025linisync Result Encounter NOMS External Department Unsolicited Steph Keane NP 08/28/2025bstract [facility] [address] [place] [phone] Eliceo Beltran, DO 08/28/2025Telephone [facility] [address] [place] [address] Radha Rahman MA 08/27/2025 3:20 PM EDTRoutine [facility] [address] [place] [address] Steph Keane NP 26 weeks gestation of ([facility]); Second trimester ([facility]); induced hypertension, antepartum ([facility]); Gestational diabetes mellitus (GDM) in second trimester, gestational diabetes method of control unspecified ([facility])08/27/2025linisync Result Encounter NOMS External Department Unsolicited Steph Keane NP 08/27/2025linisync Result Encounter NOMS External Department Unsolicited Steph Keane NP 08/27/2025amboo flowsheet [facility] [address] [place] [address] Steph Keane NP 08/25/2025linisync Result Encounter NOMS External Department Unsolicited Provider, Generic External Data 08/20/2025bstract [facility] [address] [place] [address] Jony Pop, 08/20/2025Telephone [facility] [address] [place] [address] Steph Keane NP 08/17/2025bstract [facility] [address] [place] [address] Eliceo Beltran, DO 08/17/2025bstract [facility] [address] [place] [address] Eliceo Beltran, DO 08/17/2025Telephone [facility] [address] [place] [address] Jony Pop, DO 08/13/2025bstract [facility] [address] [place] [address] Jony Pop, DO 08/12/2025 2:40 PM EDTRoutine [facility] [address] [place] [address] Jony Pop, DO 24 weeks gestation of ([facility]); Second trimester ([facility]); Elevated glucose tolerance test08/12/2025 2:00 PM EDTAncillary Procedure [facility] P[facility] [address] [place] [address] Encounter for follow-up ultrasound of anatomy ([facility])08/12/2025bstract [facility] [address] [place] [address] Jony Pop, DO 08/12/2025bstract [facility] [address] [place] [address] Jony Pop, DO 08/12/2025Telephone [facility] [address] [place] [address] Bill Gould LPN Kixkkpw6808/12/2025bstract [facility] [address] [place] [address] Eliceo Beltran, 08/04/2025bstract [facility] [address] [place] [address] Jony Pop, 08/04/2025Telephone [facility] [address] [place] [address] Bill Gould LPN Ivjvjxc8907/30/2025 3:40 PM EDTOffice Visit [facility] [address] [place] [address] Eliceo Beltran, Wellness examination (Primary Dx); Hypertension, unspecified type ; Lipid klsikpyty76/04/2025amboo flowsheet [facility] [address] [place] [address] Eliceo Beltran, 07/30/20257954Cuodoa59/26/2025Telephone [facility] [address] [place] [address] Jony Pop, from Last 3 Months Immunizations ImmunizationAdministration DatesNext DueDTP / HiB08/01/1996,1995, 1995DTaP, Inppkfdlveh40/08/2000,12/29/1997HPV, Tcwsqziquibh56/17/2014, 05/04/2014,2014Hep A, Adult09/11/2014,2014Hep B, Adolescent or Nsatjmrwu93/06/1996,1995,1995IPV05/03/2000Influenza, seasonal, injectable, preservative free09/11/2014MMR05/03/2000,08/01/1996Meningococcal RFC7C5604/03/2007OPV08/01/1996,1995,1995Tdap2014 Family History Medical HistoryRelationNameCommentsAnemiaFatherColon cancerFatherCancerMaternal GrandfatherbutchHypertensionMaternal GrandfatherbutchBreast cancerMaternal GrandmotherHypertensionMotherdarleneColon cancerPaternal GrandfatherRelationName StatusCommentsFatherDeceasedMaternal GrandfatherbutchMaternal GrandmotherMother darleneAlivePaternal GrandfatherPaternal GrandmotherAlive Social History Tobacco UseTypesPacks/DayYears UsedDateSmoking Tobacco: NeverSmokeless Tobacco: Never Tobacco Cessation:Counseling Given: Not Answered Alcohol UseStandard Drinks/WeekCommentsNever0 (1 standard drink = 0.6 oz pure alcohol)caffeine: 1-2 cups per day, coffee and wytP2152 Health LiteracyAnswer Date RecordedHow often do you [...] week12/29/2024How often do you attend synagogue or advent services?Patient nohopjvx66/03/2025Do you belong to any clubs or organizations such as synagogue groups, unions, fraternal or athletic leodan ups, or school groups?No12/29/2024How often do you attend meetings of the clubs or organizations you belong to?Patient rwpkjahv66/03/2025re you , , , , never , [...] all12/29/2024PHQ-2AnswerDate RecordedPatient Health Questionnaire-2 Score0 07/30/2025[facility] - Occupational Stress QuestionnaireAnswerDate RecordedDo you feel stress - tense, restless, nervous, or anxious, or unable to sleep at night because yourmind is troubled all the time - these days?Only a ihuwve5212/29/2024Exercise Vital SignAnswerDate Recorded On average, how many [...] the highest degree you have received?High school ebzbwkrm45/29/2023 Estimated Date of TcwtfxixNhjunpqoKzp20/03/2026ased on last menstrual period of 02/21/2025Sex and Gender InformationValueDate RecordedSex Assigned at BirthNot on fileLegal UypMvqvcv25/15/2023 7:18 PM EDTGender IdentityNot on file Sexual OrientationNot on 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 Not on fileNot on fileNot on file Last Filed Vital Signs Vital SignReadingTime TakenCommentsBlood Xumlkyyb698/8411 3:29 PM EST Ogdfb0522 3:36 PM MKUZjjgwhmgaix37.2 ??C (97.1 ??F)07/30/2025 3:36 PM EDTRespiratory Zgjq157312/23/2022 4:16 PM ESTOxygen Ghyoyzueyt23%07/30/2025 3:36 PM EDTInhaled Oxygen Concentration--Ijvxpp72.3 kg (168 lb 1.9 oz)10/14/2025 3:29 PM OMTQsncge024.5 cm (5' 2 )07/30/2025 3:36 PM EDTBody Mass Index30.75007/30/2025 3:36 PM EDT Plan of Treatment DateTypeDepartmentCare Team (Latest Contact Info)Witfapullet72/04/2025 9:00 AM ESTRoutine [facility] [address] [place] [address] [place] [address] Jony Pop, DO [address] [place] [address] Health MaintenanceDue DateLast DoneCommentsCOVID-19 Vaccine (2023- season) 2025Influenza Vaccine (#1)Pap Smear08/18/2027 08/18/2024, 08/15/2023, 06/20/2022, Additional history existsCervical Cancer Ppdqvfbvx68/09/2028HPV/Mtxttx23neumococcal Vaccine: Pediatrics (0 to 5 Years) and At-Risk Patients (6 to 64 Years)Aged OutNo longer eligible based on patient's age to complete this topic Procedures Procedure NamePriorityDate/TimeAssociated DiagnosisCommentsPOCT URINALYSIS JBZQAVNWZcrqdqx87/19/2025 3:40 PM EST 33 weeks gestation of ([facility]) Third trimester ([facility]) [facility] PIFQAjbupao97/17/2025 8:28 PM EST SRMCOH PROTHROMBIN TIME INR W/O QYRPNlnuoer87/17/2025 8:28 PM EST ALL BRDHjsezzg13/17/2025 8:28 PM EST CCF TYONboniks45/17/2025 8:28 PM EST [facility]CF KBNBiexubr11/17/2025 8:28 PM EST ALL URIC KIZKQqqfgft05/17/2025 8:28 PM EST TBH VIIWGYLYQFNhocqaf29/17/2025 8:28 PM EST ALL ETMNlzpzfi59/17/2025 8:28 PM EST ALL CBC WITH AUTO DXARJmmwjys37/17/2025 8:28 PM EST TB[facility] URINE T PROTEIN CREAT KXFEGNvskwsx44/17/2025 7:05 PM EST TB[facility] UA (CLEAN/CATCH) EEO OFFICER/MICRO IF IND.Akixttx0410/12/2025 7:05 PM EST US OB BPP W NON-IBKMKG0310/11/2025 1:46 PM EST US OB BPP W NON-ENILAR6010/03/2025 11:36 AM EST POCT URINALYSIS XGLUHNCARqamimv81/05/2025 3:13 PM EST Third trimester ([facility]) US OB BPP W NON-NCKKPL3709/26/2025 2:50 PM EDT US OB BPP W NON-LMJBSB7009/19/2025 12:17 PM EDT POCT URINALYSIS BIBJKGFCChckowu07/22/2025 4:09 PM EDT 29 weeks gestation of ([facility]) Third trimester ([facility]) ALL CBC WITH AUTO QZOGIqbnxuj15/09/2025 5:15 PM EDT MHPT YGXBKXBWOFJvoopgt50/09/2025 5:15 PM EDT CCF KHACTyirixc73/09/2025 5:15 PM EDT SRMCOH PROTHROMBIN TIME INR W/O EPJUBhynkan07/09/2025 5:15 PM EDT CCF HXMApdgbrl40/09/2025 5:15 PM EDT CCF OLLWxqgflx86/09/2025 5:15 PM EDT ALL URIC FTGWDoiolsb98/09/2025 5:15 PM EDT TBH OPEOMIZDZGDwpfczj97/09/2025 5:15 PM EDT ALL IWWEcztvwa72/09/2025 5:15 PM EDT TBH URINE T PROTEIN CREAT JYBIUXhqkxmq73/09/2025 5:05 PM EDT POCT URINALYSIS WJPHFZCZPqpbepv87/09/2025 4:26 PM EDT 27 weeks gestation of ([facility]) TBH TOTAL PROTEIN 24 HOUR TFVLHFzqfjls96/04/2025 8:00 AM EDT US OB BPP W NON-HHQXYS4108/27/2025 6:02 PM EDT TBH URINE T PROTEIN CREAT LVLYBCigooef58/02/2025 5:50 PM EDT CCF UZZBtozfsa01/02/2025 5:00 PM EDT CCF SWBPOudbyac25/02/2025 5:00 PM EDT SRMCOH PROTHROMBIN TIME INR W/O YDKGHgisrix28/02/2025 5:00 PM EDT ALL DXTAobquvj68/02/2025 5:00 PM EDT C[facility] WACRwinzcj47/02/2025 5:00 PM EDT ALL URIC LAZEUrkyexg78/02/2025 5:00 PM EDT TBH PSXNTXFZYPEbwjbda14/02/2025 5:00 PM EDT ALL LYXXfiptiu88/02/2025 5:00 PM EDT ALL CBC WITH AUTO DZBFEbokyhi20/02/2025 5:00 PM EDT POCT URINALYSIS NIBVBURNKzftqfl92/02/2025 3:53 PM EDT 26 weeks gestation of ([facility]) URINE CULTURE, NJUVUZVAsbltaa17/30/2025 8:10 AM EDT POCT URINALYSIS CDTSIHTXDxntwye99/17/2025 2:39 PM EDT 24 weeks gestation of ([facility]) Second trimester ([facility]) US OB LIMITED 1+ GRHEMFLIffczar82/17/2025 2:22 PM EDT Encounter for follow-up ultrasound of anatomy ([facility]) PAP PPPRBLshngho61/23/2024 12:00 AM EDTTHINPREP PAP AND HPV MRNA E6/E7 W/RFL HPV 16,18/11Fdjbbil35/09/2023 4:00 PM EDT Well woman exam with routine gynecological exam from Last 3 Months or Most Recently Relevant to Health Maintenance Results * (ABNORMAL) POCT urinalysis dipstick manually resulted (10/14/2025 3:40 PM EST) Only the most recent of6 [...] / Laterality Collection Method / VolumeCollection TimeReceived KgkcRdafv35/19/2025 3:40 PM EST Narrative Authorizing ProviderResult TypeResult StatusCorey Kiesha DOPOINT OF CARE TEST ENTER/EDIT ORDERABLESFinal Result * [facility] CREATININE (10/12/2025 8:28 PM EST) Only the most recent of3 resultswithin the time period is included. ComponentValueRef RangeTest MethodAnalysis TimePerformed AtPathologist Signature CREATININE0.740.55 - 1.02 mg/dLTBHTBH EGFR-AF ZIMBABWEAN>60>=60 mL/min/1.73m 2TBH TBH EGFR-NON AF ZIMBABWEAN>60>=60 mL/min/1.73m 2TBHSpecimen (Source)Anatomical Location / LateralityCollection Method / VolumeCollection TimeReceived Time 10/12/2025 8:28 PM EST10/12/2025 8:39 PM EST Narrative CLINISYNC - 10/12/2025 8:59 PM EST Authorizing ProviderResult TypeResult StatusCorey Kiesha DOCLINISYNCFinal Result Performing OrganizationAddressCity/State/ZIP CodePhone Number [facility] * SRMCOH PROTHROMBIN TIME INR W/O COUM [...] Kiesha DOCLINISYNCFinal Result Performing OrganizationAddressCity/State/ZIP CodePhone Number [facility] * CCF AST (10/12/2025 8:28 PM EST) Only the most recent of3 resultswithin the time period is included. ComponentValueRef RangeTest MethodAnalysis TimePerformed AtPathologist Signature ASPARTATE AMINO DJFBQZVTEOW1661 - 37 U/LTBHSpecimen (Source)Anatomical Location / LateralityCollection Method / VolumeCollection TimeReceived Time10/12/2025 8:28 PM EST10/12/2025 8:39 PM EST Narrative CLINISYNC - 10/12/2025 8:59 PM EST Authorizing ProviderResult TypeResult StatusCorey Kiesha DOCLINISYNCFinal Result Performing OrganizationAddressCity/State/ZIP CodePhone Number CLINIS[facility]NC [facility]H * CCF APTT (10/12/2025 8:28 PM EST) [...] ComponentValueRef RangeTest MethodAnalysis TimePerformed AtPathologist Signature ALANINE IYSKKPFPQCROWWKK8509 - 59 U/LTBHSpecimen (Source)Anatomical Location / LateralityCollection Method / VolumeCollection TimeReceived Time10/12/2025 8:28 PM EST10/12/2025 8:39 PM EST Narrative CLINISYNC - 10/12/2025 8:59 PM EST Authorizing ProviderResult TypeResult StatusCorey Kiesha DOCLINISYNCFinal Result Performing OrganizationAddressCity/State/ZIP CodePhone Number [facility] * ALL URIC ACID (10/12/2025 8:28 PM [...] Kiesha DOCLINISYNCFinal Result Performing OrganizationAddressCity/State/ZIP CodePhone Number [facility] * ALL LDH (10/12/2025 8:28 PM EST) Only the most recent of2 resultswithin the time period is included. ComponentValueRef RangeTest MethodAnalysis TimePerformed AtPathologist Signature LACTATE HAJSBQTXNIUGH70133 - 234 U/LTBHSpecimen (Source)Anatomical Location / LateralityCollection Method / VolumeCollection TimeReceived Time10/12/2025 8:28 PM EST10/12/2025 8:39 PM EST Narrative CLINISYNC - 10/12/2025 8:59 PM EST Authorizing ProviderResult TypeResult StatusCorey Kiesha DOCLINISYNCFinal Result Performing OrganizationAddressty/State/ZIP CodePhone Number [facility] * (ABNORMAL) ALL CBC WITH AUTO DIFF [...] - 35.2 g/dLTBHTBH RDW13.211.0 - 15.0 %TBHTBH [id number] - 450 10 3/uLTBHTBH MPV9.69.5 - 13.5 [...] CodePhone Number CLINISYNC TB * ALL BUN (10/12/2025 8:28 PM EST) Only the most recent of3 resultswithin the time period is included. ComponentValueRef RangeTest MethodAnalysis TimePerformed AtPathologist Signature BLOOD UREA QTDXKGNI87.07.0 - 18.0 mg/dLTBHSpecimen (Source)Anatomical Location / LateralityCollection Method / VolumeCollection TimeReceived Time10/12/2025 8:28 PM EST10/12/2025 8:39 PM EST Narrative CLINISYNC - 10/12/2025 8:59 PM EST Authorizing ProviderResult TypeResult StatusCorey Kiesha DOCLINISYNCFinal Result Performing OrganizationAddressCity/State/ZIP CodePhone Number [facility] * (ABNORMAL) TBH URINE T PROTEIN CREAT RATIO (10/12/2025 7:05 PM EST) Only the most recent of3 resultswithin the time period is included. ComponentValueRef RangeTest MethodAnalysis TimePerformed AtPathologist Signature TOTAL PROTEIN URINE KUSSDC88.5(H)<=11.9 mg/dLTBHCREATININE URINE FULJZU24.21 20.00 - 300.00 mg/dLTBHPROTEIN CREATININE RATIO URINE0.16TBHSpecimen (Source) Anatomical Location / LateralityCollection Method / VolumeCollection Time Received Time10/12/2025 7:05 PM EST10/12/2025 10:30 PM EST Narrative CLINISYNC - 10/12/2025 10:40 PM EST Authorizing ProviderResult TypeResult StatusCorey Kiesha DOCLINISYNCFinal Result Performing OrganizationAddressCity/State/ZIP CodePhone Number [facility] * [facility] UA (CLEAN/CATCH) EEO OFFICER/MICRO IF IND. (10/12/2025 7:05 PM EST)ComponentValue Ref [...] Kiesha DOCLINISYNCFinal Result Performing OrganizationAddressCity/State/ZIP CodePhone Number [facility] * US OB BPP W NON-STRESS (10/11/2025 1:46 PM EST) Only the most recent of5 resultswithin the time period is included. Anatomical RegionLateralityModalityOtherSpecimen (Source)Anatomical Location / LateralityCollection Method / VolumeCollection TimeReceived Time10/11/2025 1:46 PM EST Narrative 10/11/2025 1:48 PM EST [facility] ?[address] ? [place] [address] ? Ultrasound Report ? Signed ? Patient: DRISS GAMA ?MR#: [id number] ?? : 1995 ?Acct:[id number] ?? Age/Sex: 30 / F ?ADM Date: 10/10/25 ?? Loc: [facility] ? Attending Dr: Jony Pop D.O. ? Ordering Physician: Jony Pop D.O. ?? Date of Service: 10/10/25 ?? Procedure(s): US OB BPP w non-stress ?? Accession Number(s): [id number] ? cc: Jony Pop D.O.; Yomaira BELTRAN ? [facility] ? [address] ? [place] [address] ? Patient Name: ?? DRISS GAMA ? MRN: [employer]:[id number] ? date: 1995 ?Sex: F ?? Assigned Patient Location: [facility] ?? Current Patient Location: [facility]O ?? Accession/Order Number: [id number] ?? Exam Date: 10/10/2025 ??10:49 ?Report Date: [...] Dictation Location: RADIO-PC-20 ? Electronically authenticated by: [id number] ??Y ?? Date: 10/11/2025 ??13:46 ? Dictated By: ?Jp Morillo D.O. ? Signed By: ?10/11/25 1348 ? DD/ 1346 ? TD/TT: ? Director Banking: Procedure Note Radiology, Radiologist, - 10/11/2025 [place] [address] Ultrasound Report Signed Patient: DRISS GAMA MMR#: [id number] : 1995Acct:[id number] Age/Sex: 30 / FADM Date: 10/10/25 Loc: [place] Attending Dr: Jony Pop D.O. Ordering Physician: Jony Pop D.O. Date of Service: 10/10/25 Procedure(s): US OB BPP w non-stress Accession Number(s): [id number] cc: Jony Pop D.O.; Yomaira BELTRAN [place] [address] Patient Name: DRISS GAMA MRN: [facility]H:[id number] date: 1995 Sex: F Assigned Patient Location: [facility] Current Patient Location: [facility] Accession/Order Number: [id number] Exam Date: 10/10/2025 10:49 Report Date: 10/11/2025 [...] Morillo M.D. 10/11/2025 1:46 PM [facility]ation [facility] Electron[facility] authenticated by: [id number] Y Date: 3:46 Dictated By: Jp Morillo D.O. Signed By:10/11/25 1348 DD/ 1346 TD/TT: Director Banking: Authorizing ProviderResult TypeResult StatusCorey Kiesha MARTINESLINISYNC IMAGINGFinal Result * (ABNORMAL) MHPT FIBRINOGEN (09/03/2025 5:15 PM EDT)ComponentValueRef RangeTest MethodAnalysis TimePerformed AtPathologist BtwexkzgjCGUFOBQCNI000(H)200 - 400 mg/dLTBHSpecimen (Source)Anatomical Location / LateralityCollection Method / VolumeCollection TimeReceived Time09/03/2025 5:15 PM EDT1 5:21 PM EDT Narrative CLINISYNC - 09/03/2025 5:45 PM EDT Authorizing ProviderResult TypeResult StatusCorey Kiesha DOCLINISYNCFinal Result Performing OrganizationAddressCity/State/ZIP CodePhone Number [facility]IN[facility] TB * (ABNORMAL) TBH TOTAL PROTEIN 24 HOUR URINE (08/29/2025 8:00 AM EDT)Component ValueRef RangeTest MethodAnalysis TimePerformed AtPathologist SignatureTOTAL PROTEIN URINE CTKHLL38.6(H)<=11.9 mg/dLTBHTOTAL VOLUME 24 HOUR IURMZ072xW/24hr TBHTBH TOTAL PROTEIN 24 HOUR IVVZF697.6<=149.1 mg/24hrTBHSpecimen (Source) Anatomical Location / LateralityCollection Method / VolumeCollection Time Received Time08/29/2025 8:00 AM EDT1 10:35 AM EDT Narrative CLINISYNC - 08/29/2025 12:08 PM EDT Authorizing ProviderResult TypeResult StatusGeneric External Data Provider CLINISYNCFinal ResultPerforming OrganizationAddressCity/State/ZIP CodePhone Number [facility] * URINE CULTURE, ROUTINE (08/25/2025 8:10 AM EDT)ComponentValueRef RangeTest MethodAnalysis TimePerformed AtPathologist SignatureURINE CULTURE, ROUTINE ??Urine Culture, Routine TBHURINE CULTURE, ROUTINEMixed urogenital floraTBHURINE CULTURE, IFSMFTU50,000- 50,000 colony forming units per mLTBHURINE CULTURE, ROUTINEPerformed at: [facility] LabSinai-Grace HospitalTBRINE CULTURE, [id number] [place], [place] [id number] URINE CULTURE, ROUTINELab Director: Cm Sandoval PhD, Phone: [phone] Specimen (Source)Anatomical Location / LateralityCollection Method / Volume Collection TimeReceived Time08/25/2025 8:10 AM EDT08/25/2025 8:30 AM EDT Narrative JENNIFER - 08/26/2025 10:07 PM EDT Authorizing ProviderResult TypeResult StatusGeneric External Data ProviderLAB BLOOD ORDERABLESFinal ResultPerforming OrganizationAddressCity/State/ZIP Code Phone Number JENNIFER [employer] [facility] [employer] * US OB limited 1+ fetuses (08/12/2025 [...] Alas MD Authorizing ProviderResult TypeResult StatusCorey Kiesha [facility] OB US PROCEDURES Final Result * Pap [...] DateEnd Date Eliceo Beltran DO [address] [facility] [address] [place] [address] PCP - GeneralFamily Medicine02/14/24 Eliceo Beltran DO [address] [place] [address] PCP - Medical [place] [employer]07/27/2412
--- OUTSIDE RECORDS SUMMARY | 2025-10-16 13:19 | XMS_ITS | Encounter Summary ---
Author Organization [facility] Address [address] [place] [address] Care Team Providers Care Metallurgical Analyst Name Role Phone NirajEliceo kauffman Primary Care Provider [phone] CharlottecarolEliceo Bryant DAY Unavailable [phone] Encounter Details DateTypeDepartmentCare Team (Latest Contact Info)Qitgqjgqcld35/16/2025Clinisync Result Encounter NOMS External Department Unsolicited Jony Pop DO [address] [facility] [place] [address] Social History Tobacco UseTypesPacks/DayYears UsedDateSmoking Tobacco: NeverSmokeless Tobacco: NeverAlcohol UseStandard Drinks/WeekCommentsNever0 (1 standard drink = 0.6 oz pure alcohol)caffeine: 1-2 cups per day, coffee and hfmU2689 Health Literacy AnswerDate RecordedHow often do you [...] relatives?Once a week12/29/2024How often do you attend scientologist or anglican services?Patient sasbymsx33/03/2025Do you belong to any clubs or organizations such as scientologist groups, unions, Alticast or athletic leodan ups, or school groups?No12/29/2024How often do you attend meetings of the clubs or organizations you belong to?Patient utltrkvo19/03/2025re you , , , , never , [...] RecordedPatient Health Questionnaire-2 Score0 07/30/2025[facility] [place] of Occupational Health - Occupational Stress QuestionnaireAnswerDate RecordedDo you feel stress - tense, restless, nervous, or anxious, or unable to sleep at night because yourmind is troubled all the time - these days?Only a xvprfb1112/29/2024Exercise Vital SignAnswerDate Recorded On average, how many [...] the highest degree you have received?High school aqiqspun42/29/2023 Estimated Date of IxfoxjrgLsegcblsFno30/03/2026ased on last menstrual period of 02/21/2025Sex and Gender InformationValueDate RecordedSex Assigned at BirthNot on fileLegal KecRchqlq18/15/2023 7:18 PM EDTGender IdentityNot on file Sexual OrientationNot on 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 Not on fileNot on fileNot on filedocumented as of this encounter Plan of Treatment DateTypeDepartmentCare Team (Latest Contact Info)Noanwtpfolp69/04/2025 9:00 AM ESTRoutine [facility] [place] [facility] [address] [place] [address] Jony Pop, DO [address] [facility] [address] [place], [facility] documented as of this encounter Procedures Procedure NamePriorityDate/TimeAssociated DiagnosisCommentsUS OB BPP W NON-YIBGGL5110/11/2025 1:46 PM EST documented in this encounter Results * US OB BPP W NON-STRESS (10/11/2025 1:46 PM EST)Anatomical Region LateralityModalityOtherSpecimen (Source)Anatomical Location / Laterality Collection Method / VolumeCollection TimeReceived Time10/11/2025 1:46 PM EST Narrative 10/11/2025 1:48 PM EST [facility] ?[address] ? [place] [address] ? Ultrasound Report ? Signed ? Patient: DRISS GAMA ?MR#: [id number] ?? : 1995 ?Acct:[id number] ?? Age/Sex: 30 / F ?ADM Date: 10/10/25 ?? Loc: [facility] ? Attending Dr: Jony Pop D.O. ? Ordering Physician: Jony Pop D.O. ?? Date of Service: 10/10/25 ?? Procedure(s): US OB BPP w non-stress ?? Accession Number(s): [id number] ? cc: Jony Pop D.O.; Yomaira BELTRAN ? [facility] ? [address] ? [place] [address] ? Patient Name: ?? DRISS Daniel GAMA ? MRN: [id number] ? date: 1995 ?Sex: F ?? Assigned Patient Location: [facility] ?? Current Patient Location: [facility] ?? Accession/Order Number: [id number] ?? Exam Date: 10/10/2025 ??10:49 ?Report Date: [...] Dictation Location: RADIO-PC-20 ? Electronically authenticated by: [id number] ??Y ?? Date: 10/11/2025 ??13:46 ? Dictated By: ?Jp Morillo D.O. ? Signed By: ?10/11/25 1348 ? DD/ 1346 ? TD/TT: ? Senior Environmental Technician: Procedure Note Radiology, Radiologist, - 10/11/2025 [place] [address] Ultrasound Report Signed Patient: DRISS GAMA MMR#: [id number] : 1995Acct:[id number] Age/Sex: 30 / FADM Date: 10/10/25 Loc: [facility] Attending Dr: Jony Pop D.O. Ordering Physician: Jony Pop D.O. Date of Service: 10/10/25 Procedure(s): US OB BPP w non-stress Accession Number(s): [id number] cc: Jony Pop D.O.; Yomaria BELTRAN The [place] [id number] Patient Name: DRISS GAMA MRN: [id number] date: 1995 Sex: F Assigned Patient Location: [facility] Current Patient Location: [facility] Accession/Order Number: [id number] Exam Date: 10/10/2025 10:49 Report Date: 10/11/2025 [...] Morillo M.D. 10/11/2025 1:46 PM Dictation Location: [facility] Electronically authenticated by: [id number] Y Date: 3:46 Dictated By: Jp Morillo D.O. Signed By:10/11/25 1348 DD/ 1346 TD/TT: Senior Environmental Technician: Authorizing ProviderResult TypeResult StatusCorey Kiesha DOCLINISYNC IMAGINGFinal Result documented in this encounter Visit Diagnoses Not on filedocumented in this encounter Care Teams Team MemberRelationshipSpecialtyStart DateEnd Date Eliceo Beltran DO [address] [place] [address] PCP - GeneralFamily Medicine02/14/24 Eliceo Beltran DO [address] [place] [address] PCP - Medical [place] [employer]07/27/2412documented as of this encounter
--- OUTSIDE RECORDS SUMMARY | 2025-10-16 13:19 | XMS_ITS | Encounter Summary ---
Author Organization [facility] tem Address [facility][id number] [address] [place] [address] Care Team Providers Care Secured Entrance Monitor Name Role Phone Cruz Rodríguez MD Primary Care Provider [phone] Encounter Details DateTypeDepartmentCare Team (Latest Contact Info)Boppuzhxrfp63/11/2025Travel Social History Tobacco UseTypesPacks/DayYears UsedDateSmoking Tobacco: NeverSmokeless Tobacco: NeverAlcohol UseStandard Drinks/WeekCommentsNo0 (1 standard drink = 0.6 oz pure alcohol)AUDIT-CAnswerDate RecordedQ1: How often do you have a drink containing alcohol?Never09/10/2025Q2: How many drinks containing alcohol do you have on a typical day when you are drinking?Patient does not drink09/10/2025Q3: How often do you have six or more drinks on one occasion?Never09/10/2025hildcareAnswer Date NmtmfvgxAssmiwhfiXdukpxz67/13/2019EmploymentAnswerDate RecordedEmployment Aqrnzdv1105/08/2019Hunger ScreeningAnswerDate RecordedWithin the past 12 months we worried whether our food would run out before we got money to buy more.Never True09/10/2025Within the past 12 months the food we bought just didn't last and we didn't have money to get more.Never True09/10/2025Purpose - LifeAnswerDate RecordedPurpose and direction in rtcgJjikzbx70/11/2021Estimated Date of VljfhcgfClyxbfszItc40/03/2026Based on last menstrual period of 02/21/2025 (Exact Date)Sex and Gender InformationValueDate RecordedSex Assigned at BirthNot on fileLegal TeeIwzcva60/07/2019 2:55 PM ESTGender IdentityNot on fileSexual OrientationNot on filedocumented as of this encounter Plan of Treatment DateTypeDepartmentCare Team (Latest Contact Info)Vupzxnpjwjt10/03/2025 11:00 AM ESTAppointment Maternal Medicine [place] [address] [place] [address] 11/03/2025 2:30 PM ESTOffice Visit Maternal- Medicine at [facility] [address] [place] [phone] Kayleigh Rizzo, PA-C [address] [address] documented as of this encounter Visit Diagnoses Not on filedocumented in this encounter Care Teams Team MemberRelationshipSpecialtyStart DateEnd Date Cruz Rodríguez MD [address] [place] [address] PCP - GeneralFamily Medicine12/02/18documented as of this encounter
--- OUTSIDE RECORDS SUMMARY | 2025-10-16 13:19 | XMS_ITS | Encounter Summary ---
Author Organization [facility] Address [address] [place] [address] Care Team Providers Care Senior Software Test Engineer Name Role Phone Eliceo Beltran DO Primary Care Provider [phone] CharlottecarolEliceo Unavailable [phone] Encounter Details DateTypeDepartmentCare Team (Latest Contact Info)Jewthhvqlbz03/19/2025Bamboo flowsheet [facility] [place] [facility] [address] [facility] [place] [phone] Nathan Pop DO [address] [facility] [address] [facility] [place], [place] [address] Social History Tobacco UseTypesPacks/DayYears UsedDateSmoking Tobacco: NeverSmokeless Tobacco: NeverAlcohol UseStandard Drinks/WeekCommentsNever0 (1 standard drink = 0.6 oz pure alcohol)caffeine: 1-2 cups per day, coffee and bvzG7082 Health Literacy AnswerDate RecordedHow often do you [...] relatives?Once a week12/29/2024How often do you attend confucianism or baptism services?Patient xzcdduiu78/03/2025Do you belong to any clubs or organizations such as confucianism groups, unions, iCoolhunt or athletic leodan ups, or school groups?No12/29/2024How often do you attend meetings of the clubs or organizations you belong to?Patient apdbhung71/03/2025re you , , , , never , [...] Questionnaire-2 Score0 07/30/2025[place] [facility] [place] of Occupational Health - Occupational Stress QuestionnaireAnswerDate RecordedDo you feel stress - tense, restless, nervous, or anxious, or unable to sleep at night because yourmind is troubled all the time - these days?Only a dyolmb7512/29/2024Exercise Vital SignAnswerDate Recorded On average, how many [...] place to sleep or slept in [facility] (including now)?No09/19/2023Housing Stability Vital SignAnswerDate [...] have received?High school /29/2023 Estimated Date of IkyxsiafMaeweimyZxc97/03/2026ased on last menstrual period of 02/21/2025Sex and Gender InformationValueDate RecordedSex Assigned at BirthNot on fileLegal QyvCbjzjq20/15/2023 7:18 PM EDTGender IdentityNot on file Sexual OrientationNot on 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 Not on fileNot on fileNot on filedocumented as of this encounter Plan of Treatment DateTypeDepartmentCare Team (Latest Contact Info)Spvlarbdkkv05/04/2025 9:00 AM ESTRoutine [facility] [place] [address] [facility] [place] [phone] Nathan Pop DO [address] [facility] [place] [address] documented as of this encounter Visit Diagnoses Not on filedocumented in this encounter Care Teams Team MemberRelationshipSpecialtyStart DateEnd Date Eliceo Beltran DO [address] [address] PCP - GeneralFamily Medicine02/14/24 Eliceo Beltran DO [address] [place] [address] PCP - Medical [place] [employer]07/27/2412documented as of this encounter
--- OUTSIDE RECORDS SUMMARY | 2025-10-16 13:19 | XMS_ITS | Patient Health Record ---
Author Organization [facility] Address [address] [place] [address] Care Team Providers Care Doll Eye Setter Name Role Phone Cruz Rodríguez Primary Care [...] Quad PFS (0.5mL Admin) 18 y/o & oyjinJmkhibq80/30/9135Zjyacpsp7151 Fluzone Quad PFS (0.5mL Admin) 6 months & botmtBdxmscx66/17/7570Vvcnxtlq9686 Fluzone, 6mo & older, Quad MDV (0.5mL Admin)Qngpqlk5307/16/20236583Dmoejllp8112 Fluzone, 6mo & older, Quad PFS (0.5mL Admin)Encgdbv47/18/2023Contraindications z2023 Fluzone, 6mo & older, Quad PFS (0.5mL Admin)Truupml12/20/2024Refused Social History Tobacco Use: Social History Observation [...] Status W/U Status Risk Notes Problem Tachycardia (2731840) Tachycardia (R00.0) ActiveconfirmedProblemObesity (260550919)Obesity (BMI 30-39.9) (E66.9)Active confirmed Plan Of Treatment No Information Insurance Providers Payer Name Payer Address Payer Phone Subscriber Number Group Number Insured Name Patient Relationship to Insured Coverage Start Date Coverage End Date [facility] [address] [place] [address] [id number] Driss Woodruff Self - patient is the insured Medical [place] [facility] [address] [place] [phone] [id number], AlexisSelf - patient is the insured Medical (General) History Medical History History ICD Code Tachycardia R00.0 Surgical History Surgery Date(Month/Year) right shoulder surgery appendectomyendometriosisHospitalization History Reason Date(Month/Year) surgeries childbirth
--- OUTSIDE RECORDS SUMMARY | 2025-10-16 13:19 | XMS_ITS | Encounter Summary ---
Author Organization [facility] tem Address [facility][id number] [address] [place] [address] Care Team Providers Care Pipe Organ Builder Name Role Phone Cruz Rodríguez MD Primary Care Provider [phone] Encounter Details DateTypeDepartmentCare Team (Latest Contact Info)Uyttzdyzodc12/10/2025Telephone Maternal- Medicine at [facility] [address] [facility] [place] [phone] Anjana Davalos RN Social History Tobacco UseTypesPacks/DayYears [...] or more drinks on one occasion?Never5ChildcareAnswer Date ImzhptseGyjiiuboyCdtekex16/13/2019EmploymentAnswerDate RecordedEmployment Sapadfg0905/08/2019Hunger ScreeningAnswerDate RecordedWithin the past 12 months we worried whether our food would run out before we got money to buy more.Never True09/10/2025Within the past 12 months the food we bought just didn't last and we didn't have money to get more.Never True09/10/2025Purpose - LifeAnswerDate RecordedPurpose and direction in xturIhhaufz21/11/2021Estimated Date of LelwbctgFqsrngjxPac58/03/2026Based on last menstrual period of 02/21/2025 (Exact Date)Sex and Gender InformationValueDate RecordedSex Assigned at BirthNot on fileLegal QrgVwnqbw22/07/2019 2:55 PM ESTGender IdentityNot on fileSexual OrientationNot on filedocumented as of this encounter Miscellaneous Notes * Telephone Encounter - Anjana Davalos RN - 10/05/2025 2:39 PM EST Left message for patient to send in blood sugar logs prior to video visit toady in [facility] at 3 PM. Also, Instructed patient to contact [facility] if unable to keep appointment today at [facility], then to call at [phone] option 1 to reschedule. documented in this encounter Plan of Treatment DateTypeDepartmentCare Team (Latest Contact Info)Ywhtqbgjugo08/03/2025 11:00 AM ESTAppointment Maternal Medicine [place] [address] [facility] [address] [facility] [place] [phone] 11/03/2025 2:30 PM ESTOffice Visit Maternal- Medicine at [facility] [address] [place] [phone] Kayleigh Rizzo PA-C [address] [address] documented as of this encounter Visit Diagnoses Diagnosis Insulin controlled gestational diabetes mellitus (GDM) in second trimester documented in this encounter Care Teams Team MemberRelationshipSpecialtyStart DateEnd Date Cruz Rodríguez MD [address] [place] [address] PCP - GeneralFamily Medicine12/02/18documented as of this encounter
--- OUTSIDE RECORDS SUMMARY | 2025-10-16 13:19 | XMS_ITS | Encounter Summary ---
Author Organization [facility] Address [address] [place] [address] Care Team Providers Care Sql Developer Dba Name Role Phone RubyEliceo Bryant DAY Primary Care Provider [phone] Ruby Eliceo Hurtado DO Unavailable [phone] Encounter Details DateTypeDepartmentCare Team (Latest Contact Info)Eewbpxlmyds70/18/2025Travel Social History Tobacco UseTypesPacks/DayYears UsedDateSmoking Tobacco: NeverSmokeless Tobacco: NeverAlcohol UseStandard Drinks/WeekCommentsNever0 (1 standard drink = 0.6 oz pure alcohol)caffeine: 1-2 cups per day, coffee and xpxO7306 Health Literacy AnswerDate RecordedHow often do you [...] week12/29/2024How often do you attend christian or confucianist services?Patient /03/2025Do you belong to any clubs or organizations such as christian groups, unions, fraternal or athletic leodan ups, or school groups?No12/29/2024How often do you attend meetings of the clubs or organizations you belong to?Patient qlaiipvm91/03/2025re you , , , , never , [...] hard at all12/29/2024PHQ-2AnswerDate RecordedPatient Health Questionnaire-2 Score0 07/30/2025[facility] [place] of Occupational Health - Occupational Stress QuestionnaireAnswerDate RecordedDo you feel stress - tense, restless, nervous, or anxious, or unable to sleep at night because yourmind is troubled all the time - these days?Only a ezwskn9612/29/2024Exercise Vital SignAnswerDate Recorded On average, how many [...] sleep or slept in [facility] ([facility])?No09/19/2023Housing Stability Vital SignAnswerDate RecordedIn the [...] the highest degree you have received?High school eupzjnpp09/29/2023 Estimated Date of IemcniwiDlpapswqEzy95/03/2026ased on last menstrual period of 02/21/2025Sex and Gender InformationValueDate RecordedSex Assigned at BirthNot on fileLegal XcjMkgapg30/15/2023 7:18 PM EDTGender IdentityNot on file Sexual OrientationNot on 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 Not on fileNot on fileNot on filedocumented as of this encounter Plan of Treatment DateTypeDepartmentCare Team (Latest Contact Info)Lnzmesztogx04/04/2025 9:00 AM ESTRoutine [facility] [place] [facility] [address] [place] [address] Nathan Pop, DO [address] [place] [address] [place] [address] documented as of this encounter Visit Diagnoses Not on filedocumented in this encounter Care Teams Team MemberRelationshipSpecialtyStart DateEnd Date Eliceo Beltran DO [address] [place] [address] PCP - GeneralFamily Medicine02/14/24 Eliceo Beltran DO [address] [place] [address] PCP - Medical [place] [employer]07/27/2412documented as of this encounter
--- OUTSIDE RECORDS SUMMARY | 2025-10-16 13:19 | XMS_ITS | Encounter Summary ---
Author Organization [facility] Address [address] [place] [place] [address] Care Team Providers Care Shop Repairer Name Role Phone Eliceo Beltran DO Primary Care Provider CharlottegeovaniEliceo kauffman Unavailable [phone] Encounter Details DateTypeDepartmentCare Team (Latest Contact Info)Pxevunrisgv66/14/2025bstract NOMShalonda [place] OBGYN [address] [place] [address] Nathan Pop DO [address] [facility] [address] [place], [facility] Social History Tobacco UseTypesPacks/DayYears UsedDateSmoking Tobacco: NeverSmokeless Tobacco: NeverAlcohol UseStandard Drinks/WeekCommentsNever0 (1 standard drink = 0.6 oz pure alcohol)caffeine: 1-2 cups per day, coffee and wgkY4682 Health Literacy AnswerDate RecordedHow often do you [...] week12/29/2024How often do you attend moravian or hinduism services?Patient /03/2025Do you belong to any clubs or organizations such as moravian groups, unions, ii4b or athletic leodan ups, or school groups?No12/29/2024How often do you attend meetings of the clubs or organizations you belong to?Patient nkmmzuya44/03/2025re you , , , , never , [...] RecordedPatient Health Questionnaire-2 Score0 07/30/2025[facility] [place] of Occupational Health - Occupational Stress QuestionnaireAnswerDate RecordedDo you feel stress - tense, restless, nervous, or anxious, or unable to sleep at night because yourmind is troubled all the time - these days?Only a sdqlqs1712/29/2024Exercise Vital SignAnswerDate Recorded On average, how many [...] the highest degree you have received?High school sprmzabe82/29/2023 Estimated Date of BddjrrbfDendykixHko27/03/2026ased on last menstrual period of 02/21/2025Sex and Gender InformationValueDate RecordedSex Assigned at BirthNot on fileLegal VogJslppc38/15/2023 7:18 PM EDTGender IdentityNot on file Sexual OrientationNot on 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 Not on fileNot on fileNot on filedocumented as of this encounter Plan of Treatment DateTypeDepartmentCare Team (Latest Contact Info)Xodwzhslylp14/04/2025 9:00 AM ESTRoutine [facility] [place] [facility]NG[facility] [address] [place] [phone] Nathan Pop DO [address] [facility] [place] [address] documented as of this encounter Visit Diagnoses Not on filedocumented in this encounter Care Teams Team MemberRelationshipSpecialtyStart DateEnd Date Eliceo Beltran DO [address] [facility] [address] [place] [address] PCP - GeneralFamily Medicine02/14/24 Eliceo Beltran DO [address] [facility] [address] [place] [address] PCP - Medical [place] [employer]07/27/2412documented as of this encounter
--- OUTSIDE RECORDS SUMMARY | 2025-10-16 13:19 | XMS_ITS | Clinical Summary ---
Author Organization Ordoro tem Address [facility] [id number] [address] [place] [address] Care Team Providers Care Boiler Coverer Helper Name Role Phone Cruz Rodríguez MD Primary Care Provider [phone] Allergies No known active allergies Medications MedicationSigDispense [...] 17 units subQ at bedtime. 15 mL 51Discontinued insulin glargine-yfgn 100 unit/mL (3 mL) insulin pen Indications:Essential hypertension affecting in third trimesterPrime with 2 units and give 5 units every morning and 20 units subQ at bedtime. 15 mL Discontinued Active Problems ProblemNoted DateDiagnosed DateEssential hypertension affecting in third ilfjztoqo61/10/2025Insulin controlled gestational diabetes mellitus (GDM) in third knmhzaqom29/26/2025Estimated Date of DeliveryCommentsYes 11/28/2025ased on last menstrual period of 02/21/2025 (Exact Date) Encounters DateTypeDepartmentCare GznyHevgcqxtfay72/14/2025Orders Only Maternal- Medicine at [facility] [address] [place] [address] Zora Samuels RN Essential hypertension affecting in third trimester (Primary Dx); Insulin controlled gestational diabetes mellitus (GDM) in third trimester 10/08/2025Orders Only Maternal Medicine [place] [address] [facility] [address] [place] [phone] Danae Ramirez, DIALLO Insulin controlled gestational diabetes mellitus (GDM) in third trimester (Primary Dx); Essential hypertension affecting in third trimester; Encounter for follow-up ultrasound of anatomy; History of pre-eclampsia in prior , currently ; Hx of delivery, currently , second ugamqqnsl13/11/2025 2:30 PM ESTTelemedicine Maternal- Medicine at [facility] [address] [place] [phone] Kayleigh Rizzo PA-C Insulin controlled gestational diabetes mellitus (GDM) in third trimester (Primary Dx); Essential hypertension affecting in third kalazecez59/11/2025Travel 10/05/2025Telephone Maternal- Medicine at [facility] [address] [facility] [address] Anjana Davalos, DIALLO 10/04/20256949Hzixqt01/03/2025Telephone Maternal- Medicine at [facility] [address] [facility] [address] Cha Harris, DIALLO 09/28/2025Orders Only Maternal- Medicine at [facility] [address] [facility] [address] Kayleigh Rizzo, PA-C Essential hypertension affecting in third bjpwwqgvo22/27/2025Telephone Maternal- Medicine at [facility] [address] [facility] [address] Verito Gudino LD 09/21/2025Remote Patient Monitoring Maternal- Medicine at [facility] [address] [facility] [address] Kayleigh Rizzo, PA-C Insulin controlled gestational diabetes mellitus (GDM) in third trimester (Primary Dx); Essential hypertension affecting in third /23/2025Orders Only Maternal- Medicine at [facility] [address] [facility] [place] [address] Camila Arciniega, STEAM AND POWER SUPERINTENDENT-CNM Essential hypertension affecting in third fqiejqefm97/22/2025Telephone Maternal- Medicine at [facility] [address] [facility] [place] [address] Cha Harris, RN 09/15/2025Orders Only Maternal- Medicine at [facility] [address] [facility] [place] [address] Kayleigh Rizzo, PA-C Essential hypertension affecting in third dfqyyjadm55/16/2025 11:00 AM EDTTelemedicine Maternal Medicine [place] [address] [address] Madhuri Monroy MD 28 weeks gestation of (Primary Dx); Insulin controlled gestational diabetes mellitus (GDM) in second trimester; Essential hypertension affecting in third /16/2025Orders Only Maternal- Medicine at [facility] [address] [place] [address] Zora Samuels RN Essential hypertension affecting in third trimester (Primary Dx); Insulin controlled gestational diabetes mellitus (GDM) in second trimester; Encounter for follow-up ultrasound of vhhducr2509/10/20254474Udwmvq48/10/2025 3:00 PM EDTOffice Visit Maternal- Medicine at [facility] [address] [place] [address] Jean Carlos Pina MD Diet controlled gestational diabetes mellitus (GDM) in second trimester (Primary Dx); Essential hypertension affecting in third oryyicmvp02/08/2025Travel 09/01/2025Telephone Maternal- Medicine at [facility] [address] [place] [address] Cha Harris RN 08/24/2025 1:30 PM EDTSupport Visit Maternal- Medicine at [place] [address] [place] [address] Teena Sarmiento, RN Kerline Steiner RD Gestational diabetes mellitus (GDM) in second trimester, gestational diabetes method of control pxwexbxoyxy54/28/6590Sufqcu67/27/1045Xjlgmp79/26/2025bstract Maternal- Medicine at [facility] [address] [place] [address] External, Scanning Provider 08/19/2025Orders Only Maternal- Medicine at [place] [address] [place] [address] Ref Prov, Not In System 08/18/2025bstract Maternal- Medicine at [facility] [address] [place] [address] Madhuri Monroy MD 08/18/2025Orders Only Maternal- Medicine at [facility] [address] [place] [address] Khalida Garrett RN History of pre-eclampsia in [...] or more drinks on one occasion?Never5ChildcareAnswer Date FlifiweqRqprixzjtYanygjy32/13/2019EmploymentAnswerDate RecordedEmployment Fdkzjpu3405/08/2019Hunger ScreeningAnswerDate RecordedWithin the past 12 months we worried whether our food would run out before we got money to buy more.Never True09/10/2025Within the past 12 months the food we bought just didn't last and we didn't have money to get more.Never True09/10/2025Purpose - LifeAnswerDate RecordedPurpose and direction in sxehNdpskez27/11/2021Estimated Date of NfgobxndHkjnkcwfPdj74/03/2026Based on last menstrual period of 02/21/2025 (Exact Date)Sex and Gender InformationValueDate RecordedSex Assigned at BirthNot on fileLegal NzkLyiapy08/07/2019 2:55 PM ESTGender IdentityNot on fileSexual OrientationNot on file Last Filed Vital Signs Vital SignReadingTime TakenCommentsBlood Ihxsgfxe402/801 10:34 AM EDT Arwtl88141/10/2025 2:48 PM EDTTemperature--Respiratory Kaxt787912/10/2018 11:10 AM ESTOxygen Xzevldlwja91%12/10/2018 11:10 AM ESTInhaled Oxygen Concentration-- Ooazaa21.6 kg (160 lb)09/10/2025 10:34 AM AOCNkpmql662.5 cm (5' 2.01 )09/04/2025 2:48 PM EDTBody Mass Index29.261 2:48 PM EDT Plan of Treatment DateTypeDepartmentCare Team (Latest Contact Info)Ygokxnbrjxw55/03/2025 11:00 AM ESTAppointment Maternal Medicine [place] [address] [facility] [address] [place] [phone] 11/03/2025 2:30 PM ESTOffice Visit Maternal- Medicine at [facility] [address] [place] [address] Kayleigh Rizzo, PAAlbinC [address] [address] Health MaintenanceDue DateLast DoneCommentsDepression Pxwduvmzm02/08/2007dult BMI Follow Up Plan2013DTaP,Tdap and Td Vaccines (7 - Td or Tdap)2024 2014, 05/03/2000, 12/29/1997, Additional history existsInfluenza Vaccine RSV ( or age 60+ yrs) (1 - Risk 1-dose series)10/03/2025dult BMI Slpfznpqx76Tobacco Screening Pap Smear4 Medical Devices Not on file Procedures Procedure NamePriorityDate/TimeAssociated DiagnosisCommentsUS MFM OB FOLLOW-UP, 1 SOGNKEedpzek46/13/2025 8:55 AM EST Essential hypertension affecting in third trimester Insulin controlled gestational diabetes mellitus (GDM) in second trimester Encounter for follow-up ultrasound of anatomy US MFM COMPREHENSIVE ANATOMIC EXCJBDNrhzpry89/16/2025 10:56 AM EDT History of pre-eclampsia in prior , currently GLUCOSE TOLERANCE, 3 FJBBATijhkjf35/20/2025 GLUCOSE TOLERANCE, JOCZXOJNhseahq38/20/2025 GLUCOSE TOLERANCE, 1 TCEJQymltuj67/20/2025 SECOND HOUR GLUCOSE TOLERANCE 100 GM ZVTFOizojxk67/20/2025 ULTRASOUND KZUSNCPacsxod39/17/2025 3:39 PM EDTGLU 1H POST 50G LOADRoutine 08/12/2025 from Last 3 Months Results * US MFM OB FOLLOW-UP, 1 FETUS (10/08/2025 8:55 AM EST) Only the most recent of2 resultswithin the time period is included. Anatomical RegionLateralityModalityOB-GYNUltrasoundSpecimen (Source)Anatomical Location / LateralityCollection Method / VolumeCollection TimeReceived Time 10/08/2025 9:08 AM EST Narrative 10/08/2025 11:56 AM EST NAME: ??JAYY REYNAGA : 1995 SEX: F Accession Number: [id number] ORDERING PHYSICIAN: MADHURI MONROY REFERRING PHYSICIAN: JONY MEJÍA Coding Procedures ? 38876: Ultrasound, uterus, real time with image documentation, follow up,transabdominal ? approach per fetus Indication Screening for follow-up survey, Gestational diabetes, Chronic hypertension affecting , History of prior with pre-eclampsia , History of prior with delivery , Previous surgery to cervix -(D&C). History OB History ? 2. Para 1 ? [id number] Current Cell free DNA ?Low Risk analysis [...] (oz) ? 11 oz EFW by: ?Hadlock (NKU-HX-VW-FL) Extended Tibia ??52.5 mm 31w 1d 20% Gerda Supervisor Looping ? 2.7 mm Head / Face / Neck Cephalic index 0.82 ? 75% Nicolaides Nasal bone: ?documented previously Extremities / Bony Struc FL / BPD ? 0.66 FL / HC ?0.19 FL / AC ?0.20 Other Structures FHR ?141 bpm Anatomy The following structures appear normal: Head/Neck: Cranium. Lateral ventricles. Cavum septi pellucidi. Parenchyma. Heart/Thorax: 4-chamber view. 3-vessel view. 1-hbzftu-qokohqb view. Bicaval view. Cardiac rhythm. ? Diaphragm. [...] MVP measures 5.1 cm. Recommendations Please see [facility] recommendations from prior clinical and/or ultrasound report documentation. The patient is scheduled in four to six week(s) to complete anatomic survey. Subsequent follow up or other follow up as clinically determined by primary OB provider unless otherwise specified by [facility]. Results forwarded to ordering provider so they can follow up with the patient as necessary. Procedure Note Jean Carlos Pina MD - 10/08/2025 NAME: JAYY REYNAGA : 1995 SEX: F Accession Number: [id number] ORDERING PHYSICIAN: MADHURI MONROY REFERRING PHYSICIAN: JONY MEJÍA Coding Procedures 51625: Ultrasound, uterus, real time with image documentation, follow up, transabdominal approach per fetus Indication Screening for follow-up survey, Gestational diabetes, Chronic hypertension affecting , History of prior with pre-eclampsia , History of prior with delivery ,Previous surgery to cervix -(D&C). History OB History 2. Para 1 [id number] Current Cell free DNA Low Risk analysis [...] EFW (oz) 11 oz EFW by: Hadlock (IAO-NU-FS-FL) Extended Tibia 52.5 mm 31w 1d 20% Gerda Supervisor Looping 2.7 mm Head / Face / Neck Cephalic index 0.82 75% Nicolaides Nasal bone: documented previously Extremities / Bony Struc FL / BPD 0.66 FL / HC 0.19 FL / AC 0.20 Other Structures FHR 141 bpm Anatomy The following structures appear normal: Head/Neck: Cranium. Lateral ventricles. Cavum septi pellucidi.Parenchyma. Heart/Thorax: 4-chamber view. 3-vessel view. 5-abwzac-fxbedrm view.Bicaval view. Cardiac rhythm. Diaphragm. Abdomen: Stomach. [...] MVP measures 5.1 cm. Recommendations Please see MFM recommendations from prior clinical and/or ultrasoundreport documentation. The patient is scheduled in four to six week(s) to complete anatomicsurvey. Subsequent follow up or other follow up as clinically determined byprimary OB provider unless otherwise specified by MFM. Results forwarded to ordering provider so they can follow up with thepatient as necessary. Authorizing ProviderResult TypeResult StatusMadhuri Monroy MDSTEPHENS COUNTY H[facility]PITAL ORDERABLESFinal Result * 2nd hr Glucose Tolerance 100 gm load (08/15/2025)ComponentValueRef RangeTest MethodAnalysis TimePerformed AtPathologist SignatureGlucose Tolerance Test 2 [id number] TRANSCRIBED RESULTSSpecimen (Source)Anatomical Location / LateralityCollection Method / VolumeCollection TimeReceived TimeBloodVenous blood / Unknown Narrative Authorizing ProviderResult TypeResult StatusNot In System Ref ProvLAB BLOOD ORDERABLESFinal ResultPerforming OrganizationAddressCity/State/ZIP CodePhone Number MANUALLY TRANSCRIBED RESULTS * Glucose tolerance, 1 hour (08/15/2025)ComponentValueRef RangeTest Method Analysis TimePerformed AtPathologist SignatureGlucose Tolerance Test 1 Poht935 MANUALLY TRANSCRIBED RESULTSSpecimen (Source)Anatomical Location / Laterality Collection Method / VolumeCollection TimeReceived TimeBloodVenous blood / Unknown Narrative Authorizing ProviderResult TypeResult StatusNot In System Ref FitwallLAB BLOOD ORDERABLESFinal ResultPerforming OrganizationAddressCity/State/ZIP CodePhone Number MANUALLY TRANSCRIBED RESULTS * Glucose tolerance, 3 hours (08/15/2025)ComponentValueRef RangeTest Method Analysis TimePerformed AtPathologist SignatureGlucose Tolerance Test 3 Sluv106 MANUALLY TRANSCRIBED RESULTSSpecimen (Source)Anatomical Location / Laterality Collection Method / VolumeCollection TimeReceived TimeBloodVenous blood / Unknown Narrative Authorizing ProviderResult TypeResult StatusNot In System Ref ProvLAB BLOOD ORDERABLESFinal ResultPerforming OrganizationAddressCity/State/ZIP CodePhone Number MANUALLY TRANSCRIBED RESULTS * Glucose, tolerance fasting (08/15/2025)ComponentValueRef RangeTest Method Analysis TimePerformed AtPathologist SignatureGlucose Tolerance Test Rcyrhrk30 MANUALLY TRANSCRIBED RESULTSSpecimen (Source)Anatomical Location / Laterality Collection Method / VolumeCollection TimeReceived TimeBloodVenous blood / Unknown Narrative Authorizing ProviderResult TypeResult StatusNot In System Ref ProvLAB BLOOD ORDERABLESFinal ResultPerforming OrganizationAddressCity/State/ZIP CodePhone Number MANUALLY TRANSCRIBED RESULTS * Ultrasound - Office (08/12/2025 3:39 PM EDT)Anatomical RegionLaterality ModalityAMBUltrasound Narrative Authorizing ProviderResult TypeResult StatusNot In System Ref ProvIMG US ORDERABLESFinal Result * Glucose 1h post 50g load (08/12/2025)ComponentValueRef RangeTest Method Analysis TimePerformed AtPathologist SignatureGlucose, 1 hr PP 50GM odak705 MANUALLY TRANSCRIBED RESULTSSpecimen (Source)Anatomical Location / Laterality Collection Method / VolumeCollection TimeReceived TimeBloodVenous blood / Unknown Narrative Authorizing ProviderResult TypeResult StatusNot In System Ref ProvLAB BLOOD ORDERABLESFinal ResultPerforming OrganizationAddressCity/State/ZIP CodePhone Number MANUALLY TRANSCRIBED RESULTS from Last 3 Months Insurance Care Teams Team MemberRelationshipSpecialtyStart DateEnd Date Cruz Rodríguez MD [address] [place] [address] PCP - GeneralFamily Medicine12/02/18
--- OUTSIDE RECORDS SUMMARY | 2025-10-16 13:19 | XMS_ITS | Encounter Summary ---
Author Organization [facility] Address [address] [place] [place] [address] Care Team Providers Care Production Broacher Name Role Phone Eliceo Beltran DO Primary Care Provider CharlottecarolEliceo Unavailable [phone] Encounter Details DateTypeDepartmentCare Team (Latest Contact Info)Fpduwhawkqu79/06/2025Telephone [facility] [address] [place] [phone] Nathan Pop DO [address] [facility] [address] [place], [facility]11 Social History Tobacco UseTypesPacks/DayYears UsedDateSmoking Tobacco: NeverSmokeless Tobacco: NeverAlcohol UseStandard Drinks/WeekCommentsNever0 (1 standard drink = 0.6 oz pure alcohol)caffeine: 1-2 cups per day, coffee and dfvN9080 Health Literacy AnswerDate RecordedHow often do you [...] week12/29/2024How often do you attend mandaen or restorationist services?Patient kaorfcyv10/03/2025Do you belong to any clubs or organizations such as mandaen groups, unions, Lang-8 or athletic leodan ups, or school groups?No12/29/2024How often do you attend meetings of the clubs or organizations you belong to?Patient gnnuflyr69/03/2025re you , , , , never , [...] Questionnaire-2 Score0 07/30/2025[facility] [place] of Occupational [facility] - Occupational Stress QuestionnaireAnswerDate RecordedDo you feel stress - tense, restless, nervous, or anxious, or unable to sleep at night because yourmind is troubled all the time - these days?Only a ourcvq9712/29/2024Exercise Vital SignAnswerDate Recorded On average, how many [...] steady place to sleep or slept in formerly [facility] (including now)?No09/19/2023Housing Stability Vital SignAnswerDate RecordedIn the last 12 months, was there a time when you were not able to pay the mortgage or rent on time?No12/29/2024Number of Times Moved in the Last YearNot on file12/29/2024t any time in the past 12 months, were you homeless or living in a mcc (including now)?No12/29/2024 EducationAnswerDate RecordedWhat is the highest level of school you have completed or the highest degree you have received?High school akxwugpl82/29/2023 Estimated Date of KbzmiihwKbpcnbelFxw45/03/2026ased on last menstrual period of 02/21/2025Sex and Gender InformationValueDate RecordedSex Assigned at BirthNot on fileLegal QmvCsrbfs32/15/2023 7:18 PM EDTGender IdentityNot on file Sexual [...] Plan of Treatment DateTypeDepartmentCare Team (Latest Contact Info)Hwtmllmpamz68/04/2025 9:00 AM ESTRoutine [facility] [address] [place] [address] Nathan Pop DO [address] [facility] [place] [address] documented as of this encounter Visit Diagnoses Not on filedocumented in this encounter Care Teams Team MemberRelationshipSpecialtyStart DateEnd Date Eliceo Beltran DO [address] [facility] [address] [place] [address] PCP - GeneralFamily Medicine02/14/24 Eliceo Beltran DO [address] [facility] [address] [place] [address] PCP - Medical [place] [employer]07/27/2412documented as of this encounter
--- OUTSIDE RECORDS SUMMARY | 2025-10-16 13:19 | XMS_ITS | Encounter Summary ---
Author Organization Robodrom tem Address [id number] [address] [place] [address] Care Team Providers Care Gear Machine Operator Name Role Phone Cruz Rodríguez MD Primary Care Provider [phone] Encounter Details DateTypeDepartmentCare Team (Latest Contact Info)Kzhwwiwnebe42/09/2025Travel Social History Tobacco UseTypesPacks/DayYears UsedDateSmoking Tobacco: NeverSmokeless Tobacco: NeverAlcohol UseStandard Drinks/WeekCommentsNo0 (1 standard drink = 0.6 oz pure alcohol)AUDIT-CAnswerDate RecordedQ1: How often do you have a drink containing alcohol?Never09/10/2025Q2: How many drinks containing alcohol do you have on a typical day when you are drinking?Patient does not drink09/10/2025Q3: How often do you have six or more drinks on one occasion?Never09/10/2025hildcareAnswer Date RrybgpqoExmbdcpglKtkxtwj60/13/2019EmploymentAnswerDate RecordedEmployment Yisltrl5805/08/2019Hunger ScreeningAnswerDate RecordedWithin the past 12 months we worried whether our food would run out before we got money to buy more.Never True09/10/2025Within the past 12 months the food we bought just didn't last and we didn't have money to get more.Never True09/10/2025Purpose - LifeAnswerDate RecordedPurpose and direction in nigyCymanqe57/11/2021Estimated Date of JxousxkyWrrhmiahBmi53/03/2026Based on last menstrual period of 02/21/2025 (Exact Date)Sex and Gender InformationValueDate RecordedSex Assigned at BirthNot on fileLegal UdsMxhuqn37/07/2019 2:55 PM ESTGender IdentityNot on fileSexual OrientationNot on filedocumented as of this encounter Plan of Treatment DateTypeDepartmentCare Team (Latest Contact Info)Vgeiwfozqcu89/03/2025 11:00 AM ESTAppointment Maternal Medicine [place] [address] [facility] [address] [place] [address] 11/03/2025 2:30 PM ESTOffice Visit Maternal- Medicine at [facility] [address] [place] [phone] Kayleigh Rizzo, PA-C [address] [address] documented as of this encounter Visit Diagnoses Not on filedocumented in this encounter Care Teams Team MemberRelationshipSpecialtyStart DateEnd Date Cruz Rodríguez MD [address] [place] [address] PCP - GeneralFamily Medicine12/02/18documented as of this encounter
--- OUTSIDE RECORDS SUMMARY | 2025-10-16 13:19 | XMS_ITS | Encounter Summary ---
Author Organization [facility] Address [address] [place] [address] Care Team Providers Care Securities Sales Associate Name Role Phone NirajEliceo kauffman Primary Care Provider [phone] CharlottecarolEliceo Bryant DAY Unavailable [phone] Encounter Details DateTypeDepartmentCare Team (Latest Contact Info)Lkmmzrzkoeu17/17/2025Clinisync Result Encounter [facility] Unsolicited Nathan Pop DO [address] [facility] [address] [place] [address] Social History Tobacco UseTypesPacks/DayYears UsedDateSmoking Tobacco: NeverSmokeless Tobacco: NeverAlcohol UseStandard Drinks/WeekCommentsNever0 (1 standard drink = 0.6 oz pure alcohol)caffeine: 1-2 cups per day, coffee and [id number] Health Literacy AnswerDate RecordedHow often do you [...] week12/29/2024How often do you attend samaritan or mormonism services?Patient dbirusap37/03/2025Do you belong to any clubs or organizations such as samaritan groups, unions, [employer] or athletic leodan ups, or school groups?No12/29/2024How often do you attend meetings of the clubs or organizations you belong to?Patient xtnomrhm12/03/2025re you , , , , never , [...] Health Questionnaire-2 Score0 07/30/2025[facility] [place] [facility] - Occupational Stress QuestionnaireAnswerDate RecordedDo you feel stress - tense, restless, nervous, or anxious, or unable to sleep at night because yourmind is troubled all the time - these days?Only a rjejgo5912/29/2024Exercise Vital SignAnswerDate Recorded On average, how many [...] or slept in [facility] (including now)?No09/19/2023Housing Stability Vital SignAnswerDate RecordedIn the [...] the highest degree you have received?High school yomjiudx64/29/2023 Estimated Date of YiynqqusFdyttwhhAho34/03/2026ased on last menstrual period of 02/21/2025Sex and Gender InformationValueDate RecordedSex Assigned at BirthNot on fileLegal CjxBpxfjf87/15/2023 7:18 PM EDTGender IdentityNot on file Sexual OrientationNot on 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 Not on fileNot on fileNot on filedocumented as of this encounter Plan of Treatment DateTypeDepartmentCare Team (Latest Contact Info)Bzztfkcgxod42/04/2025 9:00 AM ESTRoutine [facility] [address] [place] [address] Nathan Pop, [address] [place] [address] documented as of this encounter Procedures Procedure NamePriorityDate/TimeAssociated DiagnosisCommentsTBH CREATININERoutine 10/12/2025 8:28 PM EST SRMCOH PROTHROMBIN TIME INR W/O JOAZAnbqzki76/17/2025 8:28 PM EST CCF SKHIklizhe41/17/2025 8:28 PM EST CCF SUNZRagjasn45/17/2025 8:28 PM EST [facility]CF XUORelttfw91/17/2025 8:28 PM EST ALL URIC INMKCkghzqc39/17/2025 8:28 PM EST ALL FWCDzugxib68/17/2025 8:28 PM EST ALL CBC WITH AUTO ILZJIyerncr66/17/2025 8:28 PM EST ALL TOTZsurpss01/17/2025 8:28 PM EST TBH URINE T PROTEIN CREAT WQXUBAafokgb71/17/2025 7:05 PM EST TBH UA (CLEAN/CATCH) TIRE MOLDER/MICRO IF IND.Jlwcnlt3810/12/2025 7:05 PM EST documented in this encounter Results * [facility] APTT (10/12/2025 8:28 PM EST)ComponentValueRef RangeTest MethodAnalysis TimePerformed AtPathologist SignaturePARTIAL THROMBOPLASTIN TIME24.522.3 - 36.2 secTBHSpecimen (Source)Anatomical Location / LateralityCollection Method / VolumeCollection TimeReceived Time10/12/2025 8:28 PM EST10/12/2025 8:39 PM EST Narrative CLINISYNC - 10/12/2025 8:59 PM EST Authorizing ProviderResult TypeResult StatusCorey Kiesha DOCLINISYNCFinal Result Performing OrganizationAddressCity/State/ZIP CodePhone Number [facility] * SRMCOH PROTHROMBIN TIME INR W/O COUM [...] Kiesha DOCLINISYNCFinal Result Performing OrganizationAddressCity/State/ZIP CodePhone Number [facility] * ALL LDH (10/12/2025 8:28 PM EST)ComponentValueRef RangeTest MethodAnalysis TimePerformed AtPathologist SignatureLACTATE [id number] - 234 U/LTBH Specimen (Source)Anatomical Location / LateralityCollection Method / Volume Collection TimeReceived Time10/12/2025 8:28 PM EST10/12/2025 8:39 PM EST Narrative CLINISYNC - 10/12/2025 8:59 PM EST Authorizing ProviderResult TypeResult StatusCorey Kiesha DOCLINISYNCFinal Result Performing OrganizationAddressty/State/ZIP CodePhone Number [facility] * CCF ALT (10/12/2025 8:28 PM EST)ComponentValueRef RangeTest MethodAnalysis TimePerformed AtPathologist SignatureALANINE [id number] - 59 U/LTBH Specimen (Source)Anatomical Location / LateralityCollection Method / Volume Collection TimeReceived Time10/12/2025 8:28 PM EST10/12/2025 8:39 PM EST Narrative CLINISYNC - 10/12/2025 8:59 PM EST Authorizing ProviderResult TypeResult StatusCorey Kiesha DOCLINISYNCFinal Result Performing OrganizationAddressCity/State/ZIP CodePhone Number [facility] * CCF AST (10/12/2025 8:28 PM EST)ComponentValueRef RangeTest MethodAnalysis TimePerformed AtPathologist SignatureASPARTATE AMINO [id number] - 37 U/L TBHSpecimen (Source)Anatomical Location / [...] ProviderResult TypeResult StatusCorey Kiesha DOCLINISYNCFinal Result Performing OrganizationAddPrime Healthcare Servicesty/State/ZIP CodePhone Number CLINISYNC TB * TBH CREATININE (10/12/2025 8:28 PM EST)ComponentValueRef RangeTest Method Analysis TimePerformed AtPathologist SignatureCREATININE0.740.55 - 1.02 mg/dL TBHTBH EGFR-AF BAHRAINI>60>=60 mL/min/1.73m 2TBHTBH EGFR-NON AF BAHRAINI>60 >=60 mL/min/1.73m 2TBHSpecimen (Source)Anatomical Location / Laterality Collection Method / VolumeCollection TimeReceived Time10/12/2025 8:28 PM EST 10/12/2025 8:39 PM EST Narrative CLINISYNC - 10/12/2025 8:59 PM EST Authorizing ProviderResult TypeResult StatusCorey Kiesha DOCLINISYNCFinal Result Performing OrganizationAddressCity/State/ZIP CodePhone Number [facility] * ALL BUN (10/12/2025 8:28 PM EST)ComponentValueRef RangeTest MethodAnalysis TimePerformed AtPathologist SignatureBLOOD UREA NAYEKRLH74.07.0 - 18.0 mg/dL TBHSpecimen (Source)Anatomical Location / LateralityCollection Method / Volume Collection TimeReceived Time10/12/2025 8:28 PM EST10/12/2025 8:39 PM EST Narrative CLINISYNC - 10/12/2025 8:59 PM EST Authorizing ProviderResult TypeResult StatusCorey Kiesha DOCLINISYNCFinal Result Performing OrganizationAddressCity/State/ZIP CodePhone Number [facility] * (ABNORMAL) ALL CBC WITH AUTO DIFF (10/12/2025 8:28 PM EST)ComponentValueRef RangeTest MethodAnalysis TimePerformed AtPathologist SignatureTBH WBC12.1(H) 4.0 - 11.0 10 3/uLTBHTBH RBC3.84(L)4.20 - 5.40 10 6/uLTBHTBH HGB11.7(L)12.0 - 16.0 g/dLTBHTBH HCT34.5(L)36.0 - 48.0 %TBHTBH MCV89.881.0 - 99.0 fLTBHTBH MCH 30.526.7 - 34.0 pgTBHTBH MCHC33.929.9 - 35.2 g/dLTBHTBH RDW13.211.0 - 15.0 % TBHTBH [id number] - 450 10 3/uLTBHTBH MPV9.69.5 - 13.5 [...] Kiesha DOCLINISYNCFinal Result Performing OrganizationAddressCity/State/ZIP CodePhone Number [facility] * (ABNORMAL) TBH URINE T PROTEIN CREAT RATIO (10/12/2025 7:05 PM EST)Component ValueRef RangeTest MethodAnalysis TimePerformed AtPathologist SignatureTOTAL PROTEIN URINE CKMTAU91.5(H)<=11.9 mg/dLTBHCREATININE URINE QOFZTU62.2120.00 - 300.00 mg/dLTBHPROTEIN CREATININE RATIO URINE0.16TBHSpecimen (Source) Anatomical Location / LateralityCollection Method / VolumeCollection Time Received Time10/12/2025 7:05 PM EST10/12/2025 10:30 PM EST Narrative CLINISYNC - 10/12/2025 10:40 PM EST Authorizing ProviderResult TypeResult StatusCorey Kiesha DOCLINISYNCFinal Result Performing OrganizationAddressty/State/ZIP CodePhone Number [facility] * TBH UA (CLEAN/CATCH) TIRE MOLDER/MICRO IF IND. (10/12/2025 7:05 PM EST)ComponentValue Ref [...] Kiesha DOCLINISYNCFinal Result Performing OrganizationAddressCity/State/ZIP CodePhone Number [facility] documented in this encounter Visit Diagnoses Not on filedocumented in this encounter Care Teams Team MemberRelationshipSpecialtyStart DateEnd Date Eliceo Beltran DO [address] [place] [address] [facility] Eliceo Beltran DO [address] [place] [address] PCP - Medical [place] [employer]07/27/2412documented as of this encounter
--- OUTSIDE RECORDS SUMMARY | 2025-10-16 13:22 | XMS_ITS | CCD ---
Author Organization [facility] Care Team Providers Care Psychologist Clinical Name Role Phone Unavailable Unavailable POCOPAL QUINTEROS Referring Unavailable DENNY RODRÍGUEZ Primary Care Unavailable OPAL LARA Referring Unavailable DENNY RODRÍGUEZ Primary Care Unavailable DENNY RODRÍGUEZ Primary Care Physician Domo Hodges Unavailable PAOLO DIALLO Attending Unavailable KATHE RYDER Admitting Unavailable KATHE RYDER Attending Unavailable Denny Rodríguez MD Primary Care Provider Denny Rodríguez MD Unavailable [phone] Denny Rodríguez MD Primary Care Provider [phone] Denny Rodríguez MD Unavailable [phone] Kita SENIOR DATA DEVELOPER, Zenobia Unavailable Keesha SENIOR DATA DEVELOPER, Trista R Unavailable Denny Rodríguez MD Primary Care Provider [phone] CHARLENE RODRIGUEZ Referring Unavailable RODRÍGUEZ, DENNY SAHIL [...] Admitting Unavailable Kaftan DO Eliceo R Unavailable [phone] Yomaira BELTRAN Attending Unavailable KAFTAN, G KENNETH Admitting Unavailable KIESHA, Nathan R Attending Unavailable KIESHA, Nathan R Admitting Unavailable KIESHA, Nathan R Admitting Unavailable KIESHA, Nathan R Attending Unavailable KAFTAN, G KENNETH Admitting Unavailable KAFTAN, G KENNETH Attending Unavailable KAFTAN, G KENNETH Admitting Unavailable KAFTAN, G KENNETH Attending Unavailable Denny Rodríguez MD Primary Care Provider [phone] STEPH KEANE Attending Unavailable STEPH KEANE Admitting Unavailable KAFTANYomaira Attending Unavailable KAFTAN, G KENNETH Admitting Unavailable KIESHA, Nathan R Consulting Unavailable KIESHA, DO Nathan R Consulting Unavailable KIESHA, Nathan R Consulting Unavailable KIESHA, Nathan R Attending Unavailable KIESHA, Nathan R Admitting Unavailable ELSAANA LAURA DUMONT Attending Unavailable ELSA, ANA LAURA TYSON Admitting Unavailable Denny Rodríguez MD Primary Care Provider [phone] KIESHA, NATHAN R Referring Unavailable RODRÍGUEZ, DENNY A Primary Care Unavailable MADHURI MONROY Attending Unavailable RODRÍGUEZ, DENNY A Referring Unavailable RODRÍGUEZ, DENNY A Primary Care Unavailable Denny Rodríguez MD Unavailable [phone] Denny Rodríguez MD Primary Care Provider [phone] Denny Rodríguez MD Unavailable [phone] Kita SENIOR DATA DEVELOPER, Zenobia Unavailable Keesha SENIOR DATA DEVELOPER, Trista R Unavailable ELICEO BELTRAN Attending Unavailable [...] [No Known Medication Allergies]Propensity to adverse reactions (disorder)[facility] Repository Medications Current Medications MedicationDrug Class(es)DatesSig (Normalized)Sig (Original)acetaminophen 325 mg / butalbital 50 mg / caffeine 40 mg oral tablet (14 sources)Barbiturate, Central Nervous System Stimulant, MethylxanthineStart: 02-19-2024 End: 78-97-7286jeuw 1 tablet by mouth every six hours for headache msqvjqyywd-jwhctrscstgsw-cwovwbzu 50-325-40 MG tablet Indications: Other migraine without status migrainosus, not intractable Take 1 tablet by mouth every 6 (six) hours if needed for headaches 20 tablet 02/19/2024 05/01/2025 Discontinuedatenolol 25 mg oral tablet (4 sources)beta-Adrenergic BlockerStart: 49-43-6625ebhm 1 mg by mouth once daily atenolol 25 mg Tab mg tab(s), Oral, Daily, Refills(s) 0 Start Date: 02/02/21 Status: OrderedStart: 08-06-2017 End: 92-83-0813swck 1 tablet by mouth once dailyAtenolol 50 mg tablet Discontinued 50 MG PO Daily August 06, 2017 12:00am October 16, 2018 3 :34pmbaclofen suppository 10 mg (CPD) (8 sources)Start: 79-06-5160ylxovjjr suppository 10 mg (CPD) Indications: High- tone pelvic floor dysfunction , Chronic pelvic pain in female Unwrap and insert one suppository vaginally daily at bedtime. 30 Suppository 2 08/24/2023 Active Comment on above:Unwrap and insert one suppository vaginally daily at bedtime. Blood Glucose Monitoring Suppl (D-Care Glucometer) w/Device kit (20 sources)Start: 08-20-2025 End: 46-88-5620Otlxd Glucose Monitoring Suppl (D-Care Glucometer) w/Device kit Indications: Gestational diabetes mellitus (GDM), antepartum, gestational diabetes method of control unspecified ([facility]) , Elevated glucose tolerance test 1 kit Daily Use four times daily to check FSBS. In the morning prior to breakfast & 1 hour after each meal for a total of 4times daily. 1 kit 08/20/2025 08/20/2026 Activecephalexin 500 mg oral capsule (6 sources)Cephalosporin AntibacterialStart: 02-14-2021 End: 58-79-7616liik 1 capsule by mouth every twelve hoursKeflex 500 mg Cap 500 mg = 1 cap(s), Oral, q12hr, X 7 day(s), # 14 cap(s), Refills(s) 0 Start Date: 07/14/22 Stop Date: 07/21/22 Status: OrderedStart: 03-14-2019 End: 65-47-1441vcjl 1 capsule by mouth every twelve hoursCephalexin (Keflex) 500 mg capsule Discontinued 500 MG PO Q12H 14 March 14, 2019 12:00am August 04, 2019 8:18amcyclobenzaprine hydrochloride 5 mg oral tablet (20 sources)Muscle RelaxantStart: 12-30-2024 End: 79-53-4102oryz 1 tablet by mouth in the morning, [...] 30 tablet 12/30/2024 01/09/2025 ActiveStart: 05-01-2023 End: 42-10-4712phir 1 tablet by mouth at bedtime as neededcyclobenzaprine (FLEXERIL) 5 mg tablet Indications: Dysmenorrhea , Chronic pelvic pain in female Take 1 tablet by mouth at bedtime as needed. 30 tablet 1 05/01/2023 ActiveStart: 88-37-0615nxtf 1 tablet by mouth three times daily as needed for muscle spasms cyclobenzaprine 10 mg Tab 10 mg = 1 tab(s), Oral, TID, PRN for spasm, # 30 tab(s), Refills(s) 0, Pharmacy: [facility], 157, cm, 01/23/22 7:20:00 EST, Height/Length Dosing, 55, kg, 01/23/22 7:20:00 EST, Weight Dosing Start Date: 01/23/22 Status: Ordered Quantity: 30.0 Unit: tab(s) Repeat number: 1 Comment on above:Take 1 tablet by mouth at bedtime as needed.cyproheptadine hydrochloride 4 mg oral tablet (10 sources)Start: 88-66-4951jfha 1 mg by mouth three times dailycyproheptadine 4 mg Tab mg tab(s), Oral, TID, Refills(s) 0 Start Date: 02/02/21 Status: Ordered Repeat number: 1Dasetta oral tablet (1 source)Start: 32-69-4071jpxd 1 tablet by mouth once dailyDasetta oral tablet 1 tab(s), Oral, Daily, Refill(s) 0, control/menstrual regulation Start Date: 11/23/16 Status: Ordereddocusate sodium 100 mg oral capsule (7 sources)Start: 11-30-2022 End: 52-66-1573yzuj 1 capsule by mouth twice daily as needed for constipation Docusate Sodium (DSS) 100 MG capsule Take 1 capsule (100 mg) by mouth 2 times daily as needed for constipation (Vaginal Delivery) for up to 10 days. 60 capsule 0 12/01/2022 12/31/2022 ActiveStart: 07-14-2022 End: 71-52-0687iuad 1 capsule by mouth twice dailyColace 100 mg Cap 100 mg = 1 cap(s), Oral, BID, X 10 day(s), # 20 cap(s), Refills(s) 0 Start Date: 07/14/22 Stop Date: 07/24/22 Status: Orderedelagolix 150 mg oral tablet (13 sources)Start: 07-16-2023 End: 61-77-3227guom 1 tablet by mouth once dailyelagolix (ORILISSA) 150 mg tablet Take 1 tablet (150 mg) by mouth once daily. 30 tablet 11 07/16/2023 07/15/2024 ActiveStart: 00-26-4308eqzw 1 tablet by mouth twice dailyOrilissa 200 MG Oral Tablet take 1 tablet by mouth twice a day Quantity: 60 Refills: 4 Ordered: 09-Feb-2022 Charlene Rodriguez DO Start : 09-Feb-2022 ActiveComment on above:Take 1 tablet (150 mg) by mouth once daily.ergocalciferol 0.05 mg oral capsule (1 source)Provitamin D2 CompoundStart: 35-47-7094Aczqwdv D2 2000 intl units oral capsule Oral, Daily, Refills(s) 0 Start Date: 02/02/21 Status: OrderedEthinyl Estradiol / Levonorgestrel (8 sources)Progestin, Estrogen, Progestin-containing Intrauterine DeviceStart: 04-03-2024 End: 18-15-3441nhldwemngxtvos-ethinyl estradiol (Jolessa) 0.15-0.03 MG tablet Indications: Uses control TAKE1 TABLET BY MOUTH EVERY MORNING 91 tablet 3 04/03/2024 08/18/2024 Discontinued (Other)Start: 44-31-0625caakfdctusnqpg- ethinyl estradiol (Jolessa) 0.15-0.03 MG tablet Indications: Uses control TAKE1 TABLET BY MOUTH EVERY MORNING 91 tablet 3 04/03/2024 ActiveStart: 01-10-2024 End: 42-19-2432mceu 1 tablet by mouth in the morning, then take 1 tablet by mouth once dailylevonorgestrel-ethinyl estradiol (Jolessa) 0.15-0.03 MG tablet Indications: Uses control Take1 tablet by mouth in the morning. Take 1 tablet by mouth daily. 90 tablet 0 01/10/2024 04/09/2024 Activeethinyl estradiol 0.035 mg / norgestimate 0.25 mg oral tablet (4 sources)Progestin, EstrogenStart: 87-05-9703bxnxyflpaqxq-ethinyl estradiol (Ortho-Cyclen) 0.25-35 MG-MCG tablet 1 (one) time each day at the same time. 0 01/15/2023 ActiveStart: 97-61-6309ujrh 1 tablet by mouth once dailyNorgestimate- Ethinyl Estradiol 0.25-35 mg-mcg tablet Active 1 TAB PO Daily August 04, 2019 12:00amMono-Linyah 0.25-35 MG-MCG Oral for 28 Not-TakinghydrOXYzine hydrochloride 25 mg oral tablet (10 sources)AntihistamineStart: 75-03-1332ojsh 1 mg by mouth four times daily hydrOXYzine hydrochloride 25 mg Tab mg tab(s), Oral, QID, Refills(s) 0 Start Date: 02/02/21 Status: Ordered Repeat number: 1hyoscyamine sulfate 0.125 mg oral tablet (10 sources)Start: 51-79-6335gwqu 1 tablet by mouth every six hoursLevsin 0.125 mg SL Tab 0.125 mg = 1 tab(s), Oral, q6hr, # 20 tab(s), Refills(s) 1, Pharmacy: [facility], 161, cm, 03/10/21 11:21:00 EDT, Height/Length Dosing, 56, kg, 03/10/21 11:21:00 EDT, Weight Dosing Start Date: 03/10/21 Status: Ordered Quantity: 20.0 Unit: tab(s) Repeat number: 2ibuprofen 600 mg oral tablet (15 sources)Nonsteroidal Anti-inflammatory DrugStart: 01-23-2022 End: 73-16-2443ismh 1 tablet by mouth every six hoursibuprofen 600 mg Tab 600 mg = 1 tab(s), Oral, q6hr, # 40 tab(s), Refills(s) 0, [facility]: [facility], 157, cm, 01/23/22 7:20:00 EST, Height/Length Dosing, 55, kg, 01/23/22 7:20:00 EST, WeightDosing Start Date: 01/23/22 Status: Ordered Quantity: 40.0 Unit: tab(s) Repeat number: 1insulin glargine-yfgn (Semglee-yfgn) 100 UNIT/ML pen (8 sources)Start: 61-08-7591qonjyqc glargine-yfgn (Semglee-yfgn) 100 UNIT/ML pen Inject 13 Units under the skin at bedtime 09/15/2025 Activeinsulin glargine-yfgn 100 unit/mL (3 mL) insulin pen (16 sources)Start: 00-81-0780gxgwwie glargine-yfgn 100 unit/mL (3 mL) insulin pen Indications: Essential hypertension affecting in third trimester Prime with 2 units and give 5 units every morning and 23 units subQ at bedtime. 15 mL 3 09/28/2025 ActiveStart: 09-21-2025 End: 75-78-0732scnfalt glargine-yfgn 100 unit/mL (3 mL) insulin pen Indications: Essential hypertension affecting in third trimester Prime with 2 units and give 5 units every morning and 20 units subQ at bedtime. 15 mL 3 09/21/2025 09/28/2025 DiscontinuedStart: 52-59-4196uygopgx glargine-yfgn 100 unit/mL (3 mL) insulin pen Indications: Essential hypertension affecting in third trimester Prime with 2 units and give 5 units every morning and 20 units subQ at bedtime. 15 mL 3 09/21/2025 ActiveStart: 09-17-2025 End: 85-55-0849gjqjtoq glargine-yfgn 100 unit/mL (3 mL) insulin pen Indications: Essential hypertension affecting in third trimester Prime with 2 units and give 5 units every morning and 17 units subQ at bedtime. 15 mL 3 09/17/2025 09/21/2025 DiscontinuedStart: 47-34-1574bisuhxt glargine-yfgn 100 unit/mL (3 mL) insulin pen Indications: Essential hypertension affecting in third trimester Prime with 2 units and give 5 units every morning and 17 units subQ at bedtime. 15 mL 3 09/17/2025 ActiveStart: 09-15-2025 End: 51-88-2015whzksmi glargine-yfgn 100 unit/mL (3 mL) insulin pen Indications: Essential hypertension affecting in third trimester Prime with 2 units and give 17 units subQ at bedtime. 15 mL 3 09/15/2025 09/17/2025 Discontinued Start: 28-17-2017jixhtds glargine-yfgn 100 unit/mL (3 mL) insulin pen Indications: Essential hypertension affecting in third trimester Prime with 2 units and give 17 units subQ at bedtime. 15 mL 3 09/15/2025 ActiveStart: 09-10-2025 End: 34-38-2820cykrpwk glargine-yfgn 100 unit/mL (3 mL) insulin pen Indications: Essential hypertension affecting in third trimester Prime with 2 units and give 13 units subQ at bedtime. 15 mL 3 09/10/2025 09/15/2025 Discontinued Start: 15-90-3829gpnqggy glargine-yfgn 100 unit/mL (3 mL) insulin pen Indications: Essential hypertension affecting in third trimester Prime with 2 units and give 13 units subQ at bedtime. 15 mL 3 09/10/2025 ActiveStart: 09-04-2025 End: 44-30-7741dcbyyf 2 [IU] by subcutaneous injection once, then inject 10 [IU] by subcutaneous injection at bedtimeinsulin glargine-yfgn 100 unit/mL (3 mL) insulin pen Indications: Diet controlled gestational diabetes mellitus (GDM) in second trimester , Essential hypertension affecting in third trimester Prime with 2 units and give 10 units subQ at bedtime. 15 mL 3 09/04/2025 09/10/2025 DiscontinuedStart: 57-62-2553grtotn 2 [IU] by subcutaneous injection once, then inject 10 [IU] by subcutaneous injection at bedtimeinsulin glargine- yfgn 100 unit/mL (3 mL) insulin pen Indications: Diet controlled gestational diabetes mellitus (GDM) in second trimester , Essential hypertension affecting in third trimester Prime with 2 units and give 10 units subQ at bedtime. 15 mL 3 09/04/2025 Activeisopropyl alcohol 0.7 ml/ml medicated pad (20 sources)Start: 17-99-5888Iqouoig Swabs (Alcohol Prep Pad) 70 % pads Indications: Gestational diabetes mellitus (GDM), antepartum, gestational diabetes method of control unspecified ([facility]) , Elevated glucose tolerance testApply 1 Pad topically Daily Use four times daily to check FSBS. 150 each 3 08/20/2025 Activeiv contrast (will be provided with radiology test) (12 sources)Start: 41-76-9053dm contrast (will be provided with radiology test) [...] 200 mg oral tablet (20 sources)beta-Adrenergic BlockerStart: 55-66-0918zoqh 1 tablet by mouth in the morninglabetalol (Normodyne) 200 MG tablet Indications: Gestational Hypertension Take 1 tablet (200 mg) bymouth in the morning and 1 tablet (200 mg) before bedtime. 60 tablet 3 09/03/2025 ActiveStart: 07-30-2025 End: 32-07-9733wybz 1 tablet by mouth in the morninglabetalol (Normodyne) 100 MG tablet Indications: Hypertension, unspecified type Take 1 tablet (100 mg) by mouth in the morning and 1 tablet (100 mg) before bedtime. 60 tablet 5 07/30/2025 09/03/2025 DiscontinuedStart: 11-28-2022 End: 47-51-5909ywhqmvbwe (Normodyne,Trandate) injection 20 mgStart: 11-28-2022 End: 51-26-3374ynirewgao (Normodyne,Trandate) injection 20 mgStart: 11-28-2022 End: 90-22-7091fkjbaconq (Normodyne,Trandate) 5 MG/ML injection - Pyxis ADS Override Pulltake 2 tablets by mouth three times dailylabetaloL (NORMODYNE) 100 mg tablet Take 2 tablets (200 mg total) by mouth 3 (three) times a day. Active magnesium oxide 400 mg oral tablet (9 sources)Start: 05-01-2025 End: 10-83-1450blyd 1 tablet by mouth once dailymagnesium oxide (Mag-Ox) 400 MG tablet Indications: headache in first trimester ([facility])Take 1 tablet (400 mg) by mouth Daily 30 tablet 3 05/01/2025 05/31/2025 Activemeloxicam 15 mg oral tablet (15 sources)Nonsteroidal Anti-inflammatory DrugStart: 02-02-2021 End: 67-53-3225ovgd 1 tablet by mouth once dailymeloxicam (Mobic) 15 MG tablet Indications: Chronic right shoulder pain , Scapular dyskinesis Take 1 tablet (15 mg) by mouth Daily 30 tablet 3 12/30/2024 05/01/2025 Vrqrzhgkplcb13 hr metoprolol succinate 25 mg extended release oral tablet (20 sources)beta-Adrenergic BlockerStart: 10-15-2024 End: 76-87-1607xuov 1 tablet by mouth once dailymetoprolol succinate XL (Toprol- XL) 25 MG 24 hr tablet Indications: Hypertension, unspecified type Take 1 tablet by mouth daily 90 tablet 1 12/30/2024 ActiveStart: 03-10-6037mgxr 1 tablet by mouth once dailymetoprolol succinate XL (Toprol-XL) 25 MG 24 hr tablet Indications: Hypertension, unspecified type (CMS/HCC) Take 1 tablet by mouth daily 90 tablet 1 04/23/2024 ActiveStart: 39-83-8243opcs 1 tablet by mouth once dailymetoprolol succinate XL (Toprol-XL) 25 MG 24 hr tablet Indications: Hypertension, unspecified type (CMS/HCC) Take 1 tablet by mouth daily 90 tablet 1 10/23/2023 ActiveStart: 02-27-2023 End: 21-82-4992uxzmdtrgik succinate ER (TOPROL XL) 25 mg 24 hr tabletnaproxen 500 mg delayed release oral tablet (20 sources)Nonsteroidal Anti-inflammatory DrugStart: 80-89-1850hghw 1 tablet by mouth twice dailynaproxen 500 mg oral enteric coated tablet 500 mg = 1 tab(s), Oral, BID, # 28 tab(s), Refills(s) 0 Start Date: 11/07/21 Status: Ordered Quantity: 28.0 Unit: tab(s) Repeat number: 1Start: 03-04-2021 End: 24-99-8874ppvq 1 tablet by mouth twice dailynaproxen 500 mg Tab 500 mg = 1 tab(s), Oral, BID, Take one tab by mouth two times a day, # 14 tab(s), Refills(s) 0, [facility] [place] 157, cm, 03/04/21 7:22:00 EDT, Height/Length Dosing,52, kg, 03/04/21 7:22:00 EDT, Weight Dosing Start Date: 03/04/21 Status: Ordered Quantity: 14.0 Unit:tab(s) Repeat number: 1Start: 11-02-2018 End: 77-73-8490ohfc 1 tablet by mouth twice daily as [...] (5 sources)Dihydropyridine Calcium Channel BlockerStart: 11-28-2022 End: 27-69-3046DTYPqlmqcm XL (Procardia XL) 30 MG 24 hr tablet Take 1 tablet (30 mg) by mouth daily. Do not crush,chew, or split. Do not start before December 02, 2022. 90 tablet 0 12/02/2022 12/02/2023 Activenorethindrone acetate 5 mg oral tablet (20 sources)Start: 05-17-2023 End: 51-71-3648pkjs 2 tablets by mouth once dailynorethindrone (AYGESTIN) 5 mg tablet Take 2 tablets by mouth once daily. 60 tablet 5 01/03/2024 07/01/2024 ActiveStart: 04-11-2023 End: 91-32-8042gfak 1 tablet by mouth once dailynorethindrone (AYGESTIN) 5 mg tablet Take 1 tablet by mouth once daily. 30 tablet 11 04/11/2023 ActiveStart: 58-26-4008bhnx 1 tablet by mouth once dailyNorethindrone Acetate [...] mg/ml rectal foam (2 sources)Start: 07-14-2022 End: 93-88-9698axyy 15 g rectal route twice dailyProctoFoam 1% Foam apply, Rectal, BID for 7 day(s), 15 gm, Refill(s) 0 Start Date: 07/14/22 Stop Date: 07/21/22 Status: OrderedPrenatal Multivitamins with Vitamin B Complex, Vitamin C, Minerals and L-Methylfolate oral capsule (9 sources)Start: 73-63-4505Cyltzkgy Multivitamins with Vitamin B Complex, Vitamin C, Minerals and L-Methylfolate oral capsule 1 cap(s), Oral, Daily, 30 cap(s), Refill(s) 0 Start Date: 07/14/22 Status: Ordered Quantity: 30.0 Unit: cap(s) Repeat number: 1Start: 92-97-8194Pghihmno Multivitamins with Vitamin B Complex, Vitamin C, Minerals and L-Methylfolate oral capsule 1 cap(s), Oral, Daily, 30 cap(s), Refill(s) 0 Start Date: 07/14/22 Status: OrderedPrenatal Vit-Fe Fumarate-FA ( Vitamin) 27-0.8 MG tablet (3 sources) Vit-Fe Fumarate-FA ( Vitamin) 27-0.8 MG tablet Take by mouth. 0 ActivePrenatal Vit-Fe Fumarate-FA ( Vitamins) 28-0.8 MG tablet (20 sources)Start: 05-01-2025 End: 94-27-2186tvpk 1 tablet by mouth once dailyPrenatal Vit-Fe Fumarate-FA ( Vitamins) 28-0.8 MG tablet Indications: , unspecified gestational age ([facility]) , Encounter for supervision of normal first in first trimester([facility]) Take 1 tablet by mouth Daily 30 tablet 11 05/01/2025 05/01/2026 ActiveStart: 05-01-2025 End: 95-73-4695skve 1 tablet by mouth once dailyPrenatal Vit-Fe Fumarate-FA ( Vitamins) 28-0.8 MG tablet Indications: , unspecified gestational age , Encounter for supervision of normal first in first trimester Take 1 tablet by mouth Daily 30 tablet 11 05/01/2025 05/01/2026 Active SUMAtriptan 100 mg oral tablet (10 sources)Serotonin-1b and Serotonin-1d Receptor AgonistStart: 32-66-4901nuhq 1 mg by mouth onceImitrex 100 mg Tab mg tab(s), Oral, Once, Refills(s) 0 Start Date: 02/02/21 Status: Ordered Repeat number: 1Surgical Lubricant Jelly gel (12 sources)Start: 12-95-6102Cgzudvws Lubricant Jelly gel For MRI Female Pelvis, MRI department to provide. Administer intra-vaginal Surgilube immediately prior the MRI procedure (total amount to patient toleranace). 1 g 0 05/17/2023 Active Comment on above:For MRI Female Pelvis, MRI department to provide. Administer intra-vaginal Surgilube immediately prior the MRI procedure (total amount to patient toleranace).tiZANidine 4 mg oral tablet (3 sources)Central alpha-2 Adrenergic AgonistStart: 85-79-6360imhx 1 mg by mouth every eight hourstiZANidine 4 mg Tab mg tab(s), Oral, q8hr, Refills(s) 0 Start Date: 02/02/21 Status: OrderedtraMADol hydrochloride 50 mg oral tablet (10 sources)Opioid AgonistStart: 35-25-4467wnof 1 tablet by mouth every four hours as needed for paintraMADol (ULTRAM) 50 mg tablet Indications: Pelvic pain in female Take 1 tablet by mouth every 4 hours as needed for pain. 20 tablet 0 08/30/2023 ActiveStart: 07-70-4518lbrp 1 tablet by mouth every six hourstraMADol HCl - 50 MG Oral Tablet TAKE 1 TABLET Every 6 hours Quantity: 20 Refills: 0 Ordered: 18-Aug-2020 Charlene Rodriguez DO Start : 18-Aug-2020 ActiveStart: 03-12-2019 End: 96-71-9318igrc 1 tablet by mouth every four hours as needed for pain Tramadol 50 mg tablet Discontinued 50 MG PO Q4H as needed for pain 30 5 March 12, 2019 12:00am August 04, 2019 8:19amComment on above:Take 1 tablet by mouth every 4 hours as needed for pain.Vitamin D2 2000 intl units oral capsule (9 sources)Start: 63-73-5920verb 1 capsule by mouth once dailyVitamin D2 2000 intl units oral capsule Oral, Daily, Refills(s) 0 Start Date: 02/02/21 Status: Ordered Repeat number: 1Start: 94-07-7602Rpabgxl D2 2000 intl units oral capsule Oral, Daily, Refills(s) 0 Start Date: 02/02/21 Status: Ordered Completed/Discontinued Medications MedicationDrug Class(es)DatesSig (Normalized)Sig (Original)acetaminophen 325 mg oral tablet (4 sources)Start: 11-30-2022 End: 11-39-6013yxbe 1 tablet by mouth every six hours as needed for qvgu299 mg, Oral, Every 6 hours PRN, mild pain (1-3), Starting on Constance 11/30/22 at 0422 Give in addition to any other pain medication ordered at same time for any pain indication. Maximumdose of acetaminophen is 4000 mg from all sources in 24 hours. Alternate ibuprofen and acetaminophen every 3 hours.Start: 11-28-2022 End: 46-52-2900tqcqafnlrcqmj (Tylenol) tablet 1,000 mgacetaminophen 300 mg / codeine phosphate 30 mg oral tablet (4 sources)Opioid AgonistStart: 01-19-2025 End: 06-79-6199fadf 1 tablet by mouth every six hours for painacetaminophen- codeine (Tylenol w/ Codeine #3) 300-30 MG tablet Indications: Pain in female genitalia on intercourse , Endometriosis Take 1 tablet by mouth every 6 (six) hours if needed for severe pain for up to 5 days 20 tablet 01/19/2025 01/24/2025 ExpiredStart: 07-22-2024 End: 45-91-3675ojdy 1 tablet by mouth every six hours for painacetaminophen- codeine (Tylenol w/ Codeine #3) 300-30 MG tablet Indications: Dysmenorrhea, unspecified Take 1 tablet by mouth every 6 (six) hours if needed for severe pain for up to 5 days 20 tablet 07/22/2024 07/27/2024 Activeascorbic acid 500 mg oral tablet (5 sources)Vitamin CStart: 10-25-2018 End: 76-15-0970szsn 2 tablets by mouth in the morningASCORBIC ACID WITH ISAURO HIPS 500 MG tablet Take 2 tablets (1,000 mg total) by mouth in the morning.0 10/25/2018 09/04/2025 Discontinued ()aspirin 325 mg / butalbital 50 mg / caffeine 40 mg oral capsule (11 sources)Platelet Aggregation Inhibitor, Barbiturate, Nonsteroidal Anti- inflammatory Drug, Central Nervous System Stimulant, Methylxanthine End: 55-27-9993nyvi 1 capsule by mouth every four hours as needed ufrzfihlvt-iymkaya-jrjtpvby (Fiorinal) 50-325-40 MG capsule Take 1 capsule [...] spray (2 sources)Standardized Chemical AllergenStart: 11-30-2022 End: 81-06-1064Accygpf, As needed, pain, , Starting on Constance 11/30/22 at 0608, Apply to perineal area. Patient is capable and may self administer at bedside.betamethasone 3 mg/ml / betamethasone acetate 3 mg/ml injectable suspension (2 sources)CorticosteroidStart: 11-28-2022 End: 98-19-9674mpzhxwcivcedc acetate-betamethasone sodium phosphate (Celestone) injection 12 mgcalcium chloride 0.0014 meq/ml / potassium chloride 0.004 meq/ml / sodium chloride 0.103 meq/ml / sodium lactate 0.028 meq/ml injectable solution (2 sources)Start: 11-28-2022 End: 75-25-9795zzgn 125 mL intravenously every yejr647 mL/hr, IntraVENous, Continuous, Starting on Sun11/28/22 at 0100, Pre-Deliverycetirizine hydrochloride 10 mg oral tablet (17 sources)Histamine-1 Receptor AntagonistStart: 06-09-2025 End: 10-27-3198pulh 1 tablet by mouth once dailycetirizine (ZyrTEC ALLERGY) 10 MG tablet Indications: Allergy, sequela Take 1 tablet (10 mg) by mouth Daily 30 tablet 11 06/09/2025 07/15/2025 DiscontinuedchlordiazePOXIDE hydrochloride 5 mg / clidinium bromide 2.5 mg oral capsule (1 source)Anticholinergic, BenzodiazepineStart: 56-72-7446uwlc 1 capsule by mouth every eight hourschlordiazePOXIDE-Clidinium 5-2.5 MG 1 capsule before meals Orally Three times a day for 30 day(s) May, Not-Taking chlorhexidine gluconate 20 mg/ml medicated pad (2 sources)Start: 11-28-2022 End: 66-58-6468tiwww 1 dose topically every six hoursTopical, Every 6 hours, First dose on Sun11/28/22 at 0100, Pre-Delivery Apply to the affected area.&a mp;nbsp; Clean entire abdomen.cholecalciferol 0.125 mg oral capsule (5 sources)Vitamin DStart: 10-25-2018 End: 14-01-9220ndwn 1 capsule by mouth in the morningcholecalciferol, vitamin D3, (VITAMIN D3) 5,000 units capsule Take 1 capsule (5,000 Units total) bymouth in the morning. 0 10/25/2018 09/04/2025 Discontinued ()desogestrel 0.15 mg / ethinyl estradiol 0.03 mg oral tablet (11 sources)Progestin, EstrogenStart: 07-22-2024 End: 13-96-0310ckllfjnighy-ethinyl estradiol (Apri) 0.15-30 MG-MCG tablet Indications: Dysmenorrhea, unspecified Take 1 tablet by mouth Daily 21 tablet 12 10/20/2024 01/19/2025 Discontinued (Other)diphenhydrAMINE (BENADryl) injection 25 mg (2 sources)Start: 11-30-2022 End: 18-77-6134pxcg 25 mg intravenously every six hours as neededdiphenhydrAMINE (BENADryl) injection 25 mgNorethindrone-E.Estradiol-Iron (1 source)EstrogenStart: 10-17-2017 End: 59-77-2136emfj 1 tablet by mouth once dailyNorethindrone-E.Estradiol-Iron (Lo Loestrin Fe) 1 mg-10 mcg (24)/10 mcg (2) tablet Discontinued 1 TAB PO Daily October 17, 2017 1:00am March 12, 2019 6:15amEthinyl Estradiol / Norethindrone (7 sources)EstrogenStart: 12-01-2018 End: 44-56-7266qylq 0.05 ug by mouth once in the eveningnorethindrone ac-eth estradiol (MICROGESTIN 1/20) 1-20 mg-mcg per tablet Take 1 tablet by mouth in t he evening. 0 12/01/2018 09/04/2025 Discontinued ()Start: 12-01-2018 take 0.05 ug by mouth once in the eveningnorethindrone ac-eth estradiol (MICROGESTIN 1/20) 1-20 mg-mcg per tablet Take 1 tablet by mouth in the evening. 0 12/01/2018 ActiveStart: 75-27-2493jjqq 1 tablet by mouth once dailyDasetta oral tablet 1 tab(s), Oral, Daily, Refill(s) 0, control/menstrual regulation Start Date: 11/23/16 Status: Orderedfamotidine 20 mg oral tablet (2 sources)Histamine-2 Receptor AntagonistStart: 11-30-2022 End: 46-11-5664iqwa 20 mg by mouth twice daily as needed for gastroesophageal reflux wtxavoc90 mg, Oral, 2 times daily PRN, heartburn, Starting on Constance 11/30/22 at 0608, Renal dose per pharmacy for peptic ulcer prophylaxis.ferrous sulfate 325 mg oral tablet (8 sources)Start: 11-30-2022 End: 50-64-0440cgtz 325 mg by mouth twice daily at ymosnuex478 mg, Oral, 2 times daily with meals, First dose on Constance 11/30/22 at 0800, Start if Hgb le ss than 10. End: 26-96-1240ggeu 1 tablet by mouth in the morningFerrous Sulfate (IRON PO) Take 1 tablet by mouth in the morning. 09/16/2025 Discontinuedtake 1 tablet by mouth in the morningFerrous Sulfate (IRON PO) Take 1 tablet by mouth in the morning. ActiveFLUoxetine 20 mg oral capsule (17 sources)Serotonin Reuptake InhibitorStart: 42-51-3015znpc 1 capsule by mouth once dailyFLUoxetine HCl - 20 MG Oral Capsule TAKE 1 CAPSULE Daily Quantity: 30 Refills: 11 Ordered: 02-Jun-2021 Kuldip DAY Charlene Start : 02-Jun-2021 Active Start: 11-02-2018 End: 47-47-1872yjeu 1 capsule by mouth once dailyFluoxetine (Prozac) 20 mg capsule Discontinued 20 MG PO Daily November 02, 2018 1:00am August 04, 2019 8:19amtake 1 capsule by mouth once dailyFLUoxetine (PROZAC) 10 mg capsule Take 10 mg by mouth once daily. 0 ActiveComment on above:Take 10 mg by mouth once daily.fluticasone propionate 0.05 mg/actuat metered dose nasal spray (16 sources)CorticosteroidStart: 06-22-2025 End: 03-53-0720zxhy 1 spray(s) nasal route once dailyfluticasone (Flonase) 50 MCG/ACT nasal spray Indications: Sinusitis, unspecified chronicity, unspecified location Administer 1 spray into each nostril Daily Shake gently. Before first use, prime pump. After use, clean tip and replace cap. 16 g 12 06/22/2025 07/15/2025 Discontinued End: 09-94-0682hfvu 1 spray(s) nasal route in the morningfluticasone (Flonase) 50 MCG/ACT nasal spray Administer 1 spray into affected nostril(s) in the morn ing. 09/16/2025 Discontinued End: 48-39-6438cpul 1 spray(s) nasal route in the morningfluticasone propionate (FLONASE) 50 mcg/actuation nasal spray Administer 1 spray into each nostril in the morning. 09/04/2025 Discontinued ()lanolin 1000 mg/ml topical cream (2 sources)Start: 11-30-2022 End: 78-08-9664Minriyc, As needed, dry skin, nipple discomfort, Starting on Sun11/30/22 at 0608, Apply to affected area.500 ml magnesium sulfate 40 mg/ml injection (4 sources)Start: 11-28-2022 End: 99-78-7493nfqbvnlqv sulfate 20 GM/500ML infusionStart: 11-28-2022 End: 65-56-2101uregbbgyi sulfate 20 GM/500ML infusion - Pyxis ADS Override Pull metoclopramide 10 mg oral tablet (2 sources)Dopamine-2 Receptor AntagonistStart: 07-00-4443hzhz 1 tablet by mouth every eight hoursReglan 10 MG 1 tablet before meals Orally tid for 30 day(s) March, Not-TakingmiSOPROStol 0.2 mg oral tablet (2 sources)Prostaglandin E1 AnalogStart: 11-30-2022 End: 22-58-8002voCKALZEtmq (Cytotec) tablet 1,000 mcgStart: 11-30-2022 End: 64-95-1831hxVSCMZChyv (Cytotec) tablet 1,000 mcgmiSOPROStol (Cytotec) split tablet 25 mcg (2 sources)Start: 11-28-2022 End: 64-97-0188dpas 1 tablet vaginal route every four hoursmiSOPROStol (Cytotec) split tablet 25 mcg1 ml morphine sulfate 4 mg/ml injection (4 sources)Opioid AgonistStart: 11-28-2022 End: 85-75-2785bimokgep sulfate (PF) injection 4 mgnitrofurantoin, macrocrystals 25 mg / nitrofurantoin, monohydrate 75 mg oral capsule (6 sources)Nitrofuran AntibacterialStart: 50-59-1128Dngfmtrktrugaq Monohyd Macro 100 MG Oral Capsule TAKE 1 CAPSULE Other Please take one capsule aftersexual intercourse to prevent UTI Quantity: 30 Refills: 11 Ordered: 01-Apr-2021 Teri Chau MD Start : 01-Apr-2021 Active2 ml ondansetron 2 mg/ml injection (12 sources)Serotonin-3 Receptor AntagonistStart: 11-29-2022 End: 62-84-3647iant 4 mg intravenously every six hours as needed for nausea and vomitingondansetron (Zofran) injection 4 mgStart: 12-79-0038fizr 1 tablet by mouth every six hours as needed for nauseaZofran 4 mg Tab 1 tab(s), Oral, q6hr, PRN Nausea, # 8, Refills(s) 0 Start Date: 07/14/22 Status: Ordered Quantity: 8.0 Unit: Repeat number: 1Start: 55-61-9662fffv 1 tablet by mouth three times daily Zofran 4 MG 1 tablet Orally THREE TIMES A DAY for 30 day(s) May, Not-Takingondansetron ODT (Zofran-ODT) disintegrating tablet 4 mg (2 sources)Start: 11-30-2022 End: 67-89-9334lfqk 1 tablet by mouth every eight hours as needed for nausea and vomitingondansetron ODT (Zofran-ODT) disintegrating tablet 4 mgoxytocin (Pitocin) 30 units in 500 mL infusion (8 sources)Start: 11-30-2022 End: paulo-units/min (125 mL/hr), IntraVENous, Continuous, Starting on Constanec 11/30/22 at 0430 For Immediate Post Use [...] for 1 hour. Then discontinue.Start: 11-29-2022 End: 98-56-6703iozicfbr (Pitocin) 30 units in 500 mL infusionStart: 11-29-2022 End: 59-27-5972jgqwpxcv (Pitocin) 30 units in 500 mL infusionphenazopyridine hydrochloride 200 mg oral tablet (10 sources)Start: 86-62-9856mtzl 1 tablet by mouth three times dailyPyridium 200 mg Tab 200 mg = 1 tab(s), Oral, TID, Take one tab by mouth three times a day for threedays, # 9 tab(s), Refills(s) 0, Pharmacy: [facility] [id number], 157, cm, 03/04/21 7:22:00 EDT, Height/Length Dosing, 52, kg, 03/04/21 7:22:00 EDT, Weight Dosing Start Date: 03/04/21 Status: Ordered Quantity: 9.0 Unit: tab(s) Repeat number: 1predniSONE 10 mg oral tablet (3 sources)Start: 09-10-2023 End: 82-18-4213kldo 2 tablets by mouth twice daily, then [...] 09/10/2023 01/10/2024 Discontinued (Therapy completed)Start: 03-12-2019 End: 94-95-4638mtqz 3 tablets by mouth once daily at mealtimePrednisone 20 mg tablet Discontinued 60 MG PO Daily 9 March 12, 2019 12:00am August 04, 2019 8:18am administer with food or milkpromethazine hydrochloride 12.5 mg oral tablet (13 sources)PhenothiazineStart: 05-25-2025 End: 87-10-4010ytfo 1 tablet by mouth every six hours [...] nausea. 30 tablet 2 508/ Discontinued End: 82-25-3944nzuh 12.5 mg rectal route every six hours as needed for nausea and vomitingpromethazine (PHENERGAN) 12.5 mg suppository Insert 1 suppository (12.5 mg total) into the rectum every 6 (six) hours as needed for nausea or vomiting. 09/04/2025 Discontinued ()rizatriptan 5 mg disintegrating oral tablet (5 sources)Serotonin-1b and Serotonin-1d Receptor AgonistStart: 10-24-2018 End: 54-21-6150pinxcrokqsk ASSEMBLER ERECTOR (MAXALT-ASSEMBLER ERECTOR) 5 mg disintegrating tablet Dissolve 1 tablet (5 mg total) on tongue asneeded. 0 10/24/2018 09/04/2025 Discontinued ()5 ml sodium chloride 9 mg/ml injection (2 sources)Start: 11-28-2022 End: mL, IntraVENous, Every 12 hours scheduled (2 times per day), First dose on Sun11/28/22 at 0900, Pre-Deliveryvitamin b12 1 mg extended release oral tablet (5 sources)Vitamin M42Fubmb: 10-25-2018 End: 78-01-2895hcqh 1 tablet by mouth in the morningcyanocobalamin, vitamin B- 12, (VITAMIN B-12) 1,000 mcg tablet extended release Take 1 tablet (1 mg total) by mouth in the morning. 0 10/25/2018 09/04/2025 Discontinued ()witch yesi 500 mg/ml medicated pad (2 sources)Start: 11-30-2022 End: 80-87-5993Tkoduhp, As needed, hemorrhoids, For perineal pain or discomfort, Starting on Sun11/30/22 at 0608, Apply to perineal area. Patient is capable and may self administer at bedside. Problems Active Problems Problem ClassificationProblemDateDocumented DateEpisodic/ChronicAllergic reactions (1 source)Allergic reaction; Translations: [Allergy, unspecified, initial encounter]41-01-3653OjqowaxnIjndxat on above:Problem List clean-up per request of Phys. EHR CmteAnxiety disorders (20 sources)Anxiety; Translations: [Anxiety state, unspecified]Onset: 10-08-2020 19-16-3462NqdwcapQeifolc on above:Problem List clean-up per request of Phys. EHR CmteCardiac dysrhythmias (20 sources)Paroxysmal tachycardia; Translations: [Paroxysmal tachycardia, unspecified]Onset: 874741-29-4389FgahwqvJzuvjzbsihsic of surgical procedures or medical care (1 source)Postoperative retention of urine; Translations: [Other postprocedural complications and disorders of genitourinary system]44-74-4762TiylulioOxtwqqq on above:Problem List clean-up per request of Phys. EHR CmteDiabetes mellitus without complication (2 sources)Abnormal glucose tolerance test; Translations: [Other abnormal glucose]38-24-4218WaeijiadHpqrxsyy or abnormal glucose tolerance complicating ; childbirth; or the puerperium (20 sources)Gestational diabetes mellitus; Translations: [Gestational diabetes mellitus in , diet controlled]Onset: 363034-44-6629Sehftbnb Endometriosis (20 sources)Endometriosis (clinical); Translations: [Endometriosis, site unspecified]Onset: 89-05-1244VkqqmqfPficlibyv hypertension (20 sources)Hypertensive disorder; Translations: [Essential (primary) hypertension]Onset: 913565-66-0759GlnoajdKrpgryzgumyxo symptoms and ill- defined conditions (20 sources)Microscopic hematuria; Translations: [Nocturia]32-48-1014Ywmnqdyt Comment on above:Problem List clean-up per request of Phys. EHR CmteHeadache; including migraine (20 sources)Migraine; Translations: [Migraine, unspecified, not intractable, without status migrainosus]Onset: 272806-34-2066FezfjtoBuvedgn on above: Problem List clean-up per request of Phys. EHR CmteHeadache; including migraine (14 sources)Headache; Translations: [Headache, unspecified]Onset: 01-31-2023 89-56-1767WmwrnqstSvbbrstsqqi (1 source)Hemorrhoids; Translations: [Unspecified hemorrhoids]Onset: 07-14-2022 EpisodicHypertension complicating ; childbirth and the puerperium (20 sources)Hypertension complicating ; Translations: [Unspecified maternal hypertension, unspecified trimester]Onset: hronic Hypertension complicating ; childbirth and the puerperium (16 sources)Severe pre-eclampsia complicating childbirth; Translations: [Severe pre-eclampsia, third trimester]Onset: 79-22-8067VzixmbslHgajt disorders and dislocations; trauma-related (20 sources)Disorder of left patellofemoral joint; Translations: [Patellofemoral disorders, left knee]Onset: 669317-43-6156ChdahviHlylt disorders and dislocations; trauma-related (20 sources)Disorder of right patellofemoral joint; Translations: [Patellofemoral disorders, right knee]Onset: hronic Menstrual disorders (20 sources)Dysmenorrhea; Translations: [Dysmenorrhea, unspecified]Onset: 608937-49-7461NrjezctWunzin and vomiting (1 source)Nausea and vomiting; Translations: [Nausea with vomiting, unspecified] EpisodicNonspecific chest pain (2 sources)Chest pain; Translations: [Chest pain, unspecified]67-44-2878Lqcfviyp Comment on above:Problem List clean-up per request of Phys. MIKAYLA CmteNutritional deficiencies (20 sources)Vitamin D deficiency; Translations: [Vitamin D deficiency, unspecified]Onset: 897021-86-9487BazqtkvYwrot acquired deformities (20 sources)Scoliosis deformity of spine; Translations: [Scoliosis, unspecified] Onset: 972961-73-8768ZqgkcghIywft bone disease and musculoskeletal deformities (10 sources)Disorder of pdwa25-51-0678WindwmhsCfcsvdq on above:right shoulder right shoulderOther circulatory disease (1 source)Elevated blood-pressure reading without diagnosis of hypertension; Translations: [Elevated blood-pressure reading, without diagnosis of hypertension]Onset: 14-00-8231KiddludlZypex complications of ; puerperium affecting management of mother (1 source)Delayed AND/OR secondary hemorrhage; Translations: [Delayed and secondary hemorrhage]Onset: 59-26-0902DrwyaicsHmyje complications of (1 source)Finding related to ; Translations: [Other specified related conditions, unspecified trimester]Onset: 30-75-0001QzswtkaxAubdw complications of (1 source)Supervision of with other poor reproductive or obstetric history, unspecified trimester; Translations: [Supervision of with other poor reproductive or obstetric history, unspecified trimester]Onset: 91-57-6189KkvmgeeoCubub connective tissue disease (1 source)Diastasis recti; Translations: [Separation of muscle (nontraumatic), other site]EpisodicOther female genital disorders (10 sources)Abnormal uterine qctyahxy59-89-2614BfmmunwHlhpj female genital disorders (1 source)Dyspareunia; Translations: [Other specified dyspareunia]ChronicOther female genital disorders (20 sources)Pain in female genitalia on intercourse; Translations: [Unspecified dyspareunia]Onset: 706311-20-0392SizbjqfGuvcb female genital disorders (1 source)Unspecified dyspareunia; Translations: [Unspecified dyspareunia]Onset: 27-85-5274KcsjvsgNhkki female genital disorders (2 sources)Pelvic floor dysfunction; Translations: [Other specified conditions associated with female genital organs and menstrual cycle]EpisodicOther gastrointestinal disorders (18 sources)Constipation; Translations: [Constipation, unspecified]Onset: 500407-67-2484GaqizvyvKhtssjf on above:Problem List clean-up per request of Phys. EHR CmteOther gastrointestinal disorders (1 source)Constipation, unspecified; Translations: [Constipation, unspecified] Onset: 17-81-0065NnjoqgyhPmnha hereditary and degenerative nervous system conditions (20 sources)Finding of scapular structure; Translations: [Other specified extrapyramidal and movement disorders]Onset: 045694-18-8882OoefvvySodil nervous system disorders (9 sources)Chronic pain; Translations: [Other chronic pain]Onset: 03-29-2023 36-98-3438GcolhxhRjhsr nervous system disorders (1 source)Other chronic pain; Translations: [Chronic pelvic pain in female] Onset: 03-63-6438YozbcmoKseic nervous system disorders (1 source)Paresthesia of left upper limb; Translations: [Paresthesia of skin] 88-71-2902BvcytwviGvgrvfq on above:Problem List clean-up per request of Phys. EHR CmteOther nervous system disorders (1 source)Tremor; Translations: [Tremor, unspecified]68-50-7437HtqcczggRnaxaft on above:Problem List clean-up per request of Phys. EHR CmteOther nutritional; endocrine; and metabolic disorders (20 sources)Body mass index 30+ - obesity; Translations: [Obesity, unspecified] Onset: 397399-05-5218KqvprmcKjrng and delivery including normal (18 sources); Translations: [Encounter for supervision of normal , unspecified, unspecified trimester]17-21-1836TcsafeyrUfxsm screening for suspected conditions (not mental disorders or infectious disease) (8 sources)Elevated liver enzymes level; Translations: [Other specified abnormal findings of blood chemistry]Onset: 04-18-2022 Resolved: 50-27-8524EfvskgphJofef upper respiratory disease (20 sources)Allergic rhinitis due to pollen; Translations: [Allergic rhinitis due to pollen]Onset: 574323-39-6403VlefwckAmdwn upper respiratory infections (2 sources)Sinusitis; Translations: [Chronic sinusitis, unspecified]06-22-2025 ChronicResidual codes; unclassified (2 sources)Contraception ; Translations: [Other specified health status] 37-93-4184TzdtmjjwJfcvawqm codes; unclassified (2 sources)Gestation period, 13 weeks; Translations: [13 weeks gestation of ]21-61-4805MtqtcldlKvkxdqtd codes; unclassified (2 sources)Gestation period, 17 weeks; Translations: [17 weeks gestation of ]13-87-0758NtawqqdjUhiimgmw codes; unclassified (2 sources)Gestation period, 20 weeks; Translations: [20 weeks gestation of ]86-81-7067QubzblxuMddoaqrh codes; unclassified (2 sources)Gestation period, 24 weeks; Translations: [24 weeks gestation of ]00-10-2381ItrcgcjrVchylrrv codes; unclassified (2 sources)Gestation period, 26 weeks; Translations: [26 weeks gestation of ]52-31-6374BvehpgsePmteyfed codes; unclassified (2 sources)Gestation period, 27 weeks; Translations: [27 weeks gestation of ]01-69-4161HthsyotnXayximqj codes; unclassified (1 source)Gestation period, 28 weeks; Translations: [28 weeks gestation of ]36-19-8944JqilyrscHcuigccz codes; unclassified (1 source)28 weeks gestation of ; Translations: [28 weeks gestation of ]Onset: 81-02-8674KiafwieoNfpiiyaw codes; unclassified (2 sources)Gestation period, 29 weeks; Translations: [29 weeks gestation of ]52-08-4971DtlflllkAqukodnl codes; unclassified (2 sources)Gestation period, 31 weeks; Translations: [31 weeks gestation of ]98-80-9010DmncnrskZoqjfulpkqh; intervertebral disc disorders; other back problems (20 sources)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; Translations: [Other cervical disc displacement, unspecified cervical region] Onset: 611998-12-8186AdjtydgApwqenjqgoct (1 source)MFM consultOnset: 05-08-2510Kqrxjxibbsar (1 source)Gestational DiabetesOnset: 94-07-5708Jmdmugr tract infections (20 sources)Recurrent urinary tract infection; Translations: [Urinary tract infection, site not specified]Onset: 399025-10-9605Xoikvsdk Past or Other Problems Problem ClassificationProblemDateDocumented DateEpisodic/ChronicAbdominal pain (20 sources)Epigastric pain; Translations: [Epigastric pain]Onset: 07-14-2022 EpisodicAcquired foot deformities (20 sources)Acquired equinus deformity of foot; Translations: [Other acquired deformities of unspecified foot]Onset: 814666-23-2939CalfpkycQewaoas dysrhythmias (20 sources)Tachycardia; Translations: [Tachycardia, unspecified]Onset: 833764-17-6088DftutqgoCtezwhvxmdb deficiencies (20 sources)Cobalamin deficiency; Translations: [Deficiency of other specified B group vitamins]Onset: 588012-79-5505BqzntrbaLdjpa connective tissue disease (20 sources)Posterior calcaneal exostosis; Translations: [Calcaneal spur, unspecified foot]Onset: 528024-54-6783GxxsmydeKahrt disorders of stomach and duodenum (20 sources)Gastroparesis syndrome; Translations: [Gastroparesis]Onset: 922315-77-8632HetbpfpbEkozm female genital disorders (1 source)Other specified conditions associated with female genital organs and menstrual cycle; Translations:[High-tone pelvic floor dysfunction]Onset: 67-80-3572RnxqtqjlCvyak female genital disorders (20 sources)Chronic pelvic pain of female; Translations: [Chronic pelvic pain in female]Onset: 353697-31-8628LkpmoczyDxekb gastrointestinal disorders (20 sources)Swallowing painful; Translations: [Dysphagia, unspecified]Onset: 418821-45-3416WtzuuarxWldye gastrointestinal disorders (20 sources)Diarrhea; Translations: [Diarrhea, unspecified]Onset: 03-24-2025 85-11-0679TnylypvwXybzu non-traumatic joint disorders (20 sources)Chronic pain of right upper limb; Translations: [Pain in right shoulder]Onset: 854194-28-0718HvmsapepMbpik nutritional; endocrine; and metabolic disorders (16 sources)Loss of appetite; Translations: [Anorexia]Onset: 05-27-2020 19-79-2204NpikvhflVjtkzep (15 sources)Vasovagal syncope; Translations: [Syncope and collapse]Onset: 282594-21-1559PpmskvwcDsiqqmhcypox (9 sources)PregnancyOnset: 07-14-2022 Resolved: 988345-20-4603JOCMUJW: Highlighted row has been ruled out! Unclassified (1 source)No known active yfqubdyj61-66-4103 Results Test NameValueInterpretationReference RangeFacilityUS OB BPP W NON-STRESS on 30-59[place]66[place] [address] Ultrasound Report Signed Patient: JUHI GAMA MR#: [id number] : 1995 Acct:[id number] Age/Sex: 30 / F ADM Date: 10/03/25 Loc: US Attending Dr: Steph Keane Ordering Physician: Steph Keane Date of Service: 10/03/25 Procedure(s): US OB BPP w non-stress Accession Number(s): [id number] cc: Steph Keane; KAFTAN,G KENNETH The [address] [address] Patient Name: JUHI GAMA MRN: [facility]:[id number] date: 1995 Sex: F Assigned Patient Location: [place] Current Patient Location: Accession/Order Number: [id number] Exam Date: 10/03/2025 10:53 Report Date: 10/03/2025 [...] Faria M.D. 10/03/2025 11:36 AM Dictation Location: [place] [address] Electronically authenticated by: [id number] Y Date: 10/03/2025 11:36 Dictated By: Will Faria M.D. Signed By: 10/03/25 1138 DD/ 1136 TD/TT: Supervisor Roving Department:TBHRadiology, Radiologist, MD - 10/03/2025 [place] [address] Ultrasound Report Signed Patient: JUHI GAMA MR#: [id number] : 1995 Acct:[id number] Age/Sex: 30 / F ADM Date: 10/03/25 Loc: US Attending Dr: Steph Keane Ordering Physician: Steph Keane Date of Service: 10/03/25 Procedure(s): US OB BPP w non-stress Accession Number(s): [id number] cc: Steph Keane; Yomaira BELTRAN [place] [id number] Patient Name: JUHI GAMA MRN: [id number] date: 1995 Sex: F Assigned Patient Location: [place] Current Patient Location: Accession/Order Number: [id number] Exam Date: 10/03/2025 10:53 Report Date: 10/03/2025 [...] Faria M.D. 10/03/2025 11:36 AM Dictation Location: [place] [address] Electronically authenticated by: [id number] Y Date: 10/03/2025 11:36 Dictated By: Will Faria M.D. Signed By: 10/03/25 1138 DD/ 1136 TD/TT: Supervisor Roving Department: [facility] HealthcareRadiology Study observation (narrative)[facility] HealthcareUS OB BPP W NON-STRESSOrdered By: Radiologist Radiology on 39-38-1574[facility] Work Phone: Urinalysis macro (dipstick) panel (U)on 09-30-2025 Bilirubin, UANegativeNegative - 4(70) +++ mg/dLNOMS HealthcareBlood, UANegative Negative - 50 Teodoro/mcLNOMS HealthcareClarity, UAClearNOMS HealthcareColor, UA YellowNOWI HealthcareGlucose, UANegativeNegative - 2000(110) ++++ mg/dLNOWI HealthcareInterpretation and review of laboratory resultsNormalNOCrossroads [facility] Ketones, UANegativeNegative - 160(16) ++++ mg/dLNOWI HealthcareLeukocytes, UA NegativeNegative - 500+++ Robinson/mcLNOWI HealthcareNitrite, UANegativeNegative - PositiveNOWI HealthcarepH, UA6.05 - 9NOWI HealthcareProtein, UANegativeNegative - 2000(20) ++++ mg/dLNOWI HealthcareSpec Grav, UA1.0101 - 1.03NOWI Healthcare Urobilinogen, UA1.00.2 - 12 mg/dLNOFreeman Cancer Institute HealthcareUS OB BPP W NON-STRESSon 68-55-9066[place] [address] Ultrasound Report Signed Patient: JUHI GAMA MR#: [id number] : 1995 Acct:[id number] Age/Sex: 30 / F ADM Date: 09/26/25 Loc: US Attending Dr: Steph Keane Ordering Physician: Steph Keane Date of Service: 09/26/25 Procedure(s): US OB BPP w non-stress Accession Number(s): [id number] cc: Steph Keane; Yomaira BELTRAN [place] [id number] Patient Name: JUHI GAMA MRN: [id number]:[id number] date: 1995 Sex: F Assigned Patient Location: Current Patient Location: Accession/Order Number: [id number] Exam Date: 09/26/2025 11:50 Report Date: 09/26/2025 14:50 At the request of: STEPH KEANE Procedure: US OB BPP w non-stress Ultrasound biophysical profile INDICATION: -induced hypertension COMPARISON: 09/19/2025 FINDINGS IMPRESSION: Cephalic position. 8 out of 8 score biophysical profile. LEONEL 11.6 cm. heart 129 bpm Impression dictated by: Chu Amaya M.D. 09/26/2025 2:50 PM Dictation Location: RADIO-PC-29 Electronically authenticated by: [id number] Y Date: 09/26/2025 14:50 Dictated By: Chu Amaya M.D. Signed By: 09/26/25 1452 DD/ 49 TD/TT: Supervisor Roving Department:TBHRadiology, Radiologist, - 09/26/2025 [place] [address] Ultrasound Report Signed Patient: JUHI GAMA MR#: [id number] : 1995 Acct:[id number] Age/Sex: 30 / F ADM Date: 09/26/25 Loc: US Attending Dr: Steph Keane Ordering Physician: Steph Keane Date of Service: 09/26/25 Procedure(s): US OB BPP w non-stress Accession Number(s): [id number] cc: Le Keane G ROBERT [place] [address] Patient Name: JUHI GAMA MRN: [facility]:[id number] date: 1995 Sex: F Assigned Patient Location: Current Patient Location: Accession/Order Number: [id number] Exam Date: 09/26/2025 11:50 Report Date: 09/26/2025 14:50 At the request of: STEPH KEANE Procedure: US OB BPP w non-stress Ultrasound biophysical profile INDICATION: -induced hypertension COMPARISON: 09/19/2025 FINDINGS IMPRESSION: Cephalic position. 8 out of 8 score biophysical profile. LEONEL 11.6 cm. heart 129 bpm Impression dictated by: Chu Amaya M.D. 09/26/2025 2:50 PM Dictation Location: RADIO-PC-29 Electronically authenticated by: [id number] Y Date: 09/26/2025 14:50 Dictated By: Chu Amaya M.D. Signed By: 09/26/25 145 DD/ 145 TD/TT: Supervisor Roving Department: [facility] HealthcareRadiology Study observation (narrative)NOMS HealthcareUS OB BPP W NON-STRESSOrdered By: Radiologist Radiology on 84-96-4376[facility] Work Phone: US OB BPP W NON-STRESSon 78-14-4640[place] [address] Ultrasound Report Signed Patient: JUHI GAMA MR#: [id number] : 1995 Acct:[id number] Age/Sex: 30 / F ADM Date: 09/19/25 Loc: US Attending Dr: Steph Keane Ordering Physician: Steph Keane Date of Service: 09/19/25 Procedure(s): US OB BPP w non-stress Accession Number(s): [id number] cc: Steph Keane; Yomaira BELTRAN [place] [id number] Patient Name: JUHI GAMA MRN: [facility]:[id number] date: 1995 Sex: F Assigned Patient Location: [facility] Current Patient Location: Accession/Order Number: [id number] Exam Date: 09/19/2025 10:06 Report Date: 09/19/2025 [...] Morillo M.D. 09/19/2025 12:17 PM Dictation Location: [employer] Electronically authenticated by: [id number] Y Date: 09/19/2025 12:17 Dictated By: Jp Morillo D.O. Signed By: 09/19/25 1219 DD/ 16 TD/TT: Supervisor Roving Department:SATNAMadiolRandell malagon, - 09/19/2025 [place] [id number] Ultrasound Report Signed Patient: JUHI GAMA MR#: [id number] : 1995 Acct:[id number] Age/Sex: 30 / F ADM Date: 09/19/25 Loc: US Attending Dr: Steph Keane Ordering Physician: Steph Keane Date of Service: 09/19/25 Procedure(s): US OB BPP w non-stress Accession Number(s): [id number] cc: Steph Keane; Yomaira BELTRAN The [place] [id number] Patient Name: JUHI GAMA MRN: [facility]:[id number] date: 1995 Sex: F Assigned Patient Location: [facility] Current Patient Location: Accession/Order Number: [id number] Exam Date: 09/19/2025 10:06 Report Date: 09/19/2025 [...] Morillo M.D. 09/19/2025 12:17 PM Dictation Location: [employer]i Electronically authenticated by: [id number] Y Date: 09/19/2025 12:17 Dictated By: Jp Morillo D.O. Signed By: 09/19/25 1219 DD/ 16 TD/TT: Supervisor Roving Department: [facility] HealthcareRadiology Study observation (narrative)NOMS HealthcareUS OB BPP W NON-STRESSOrdered By: Radiologist Radiology on 95-01-1869YKZBPike County Memorial Hospital Work Phone: Urinalysis macro (dipstick) panel (U)on 09-16-2025 Bilirubin, UANegativeNegative - 4(70) +++ mg/dLPike County Memorial HospitalBlood, UANegative Negative - 50 Teodoro/mcLPike County Memorial HospitalClarity, UAClearNOWI HealthcareColor, UA YellowNOCrossroads Regional Medical CenterGlucose, UANegativeNegative - 2000(110) ++++ mg/dLPike County Memorial HospitalInterpretation and review of laboratory resultsNormalPike County Memorial Hospital Ketones, UANegativeNegative - 160(16) ++++ mg/dLPike County Memorial HospitalLeukocytes, UA NegativeNegative - 500+++ Robinson/[facility] HospitalNitrite, UANegativeNegative - PositiveENCOMPASS HEALTH HealthcarepH, UA6.05 - 9NOWI HealthcareProtein, UANegativeNegative - 2000(20) ++++ mg/dLPike County Memorial HospitalSpec Grav, UA1.0101 - 1.03[facility] Urobilinogen, UA1.00.2 - 12 mg/dLMetropolitan Saint Louis Psychiatric Center HealthcareALL BUNon 33-33-0401Idlz nitrogen [Mass/Vol]8 mg/dL7.0 - 18.0 mg/dLLiberty Hospital URIC ACIDon 43-82-5025Dhcxs [Mass/Vol]3.5 mg/dL2.6 - 6.0 mg/dLPike County Memorial HospitalCC ALT on 25-08-0172WJL [Catalytic activity/Vol]40 U/L14 - 59 U/[facility] SystemCCF AST on 17-29-2586BXZ [Catalytic activity/Vol]24 U/L15 - 37 U/[facility] Health SystemNo Panel Informationon 88-45-8506Vvqlnypwjseuot and review of laboratory results AbnormalNOCrossroads Regional Medical CenterCLINISYNCNWestern Missouri Mental Health CenterTB CREATININEon 09-03-2025 Creatinine [Mass/Vol]0.42 mg/dLLow0.55 - 1.02 mg/dLPike County Memorial HospitalGFR/1.73 sq M.predicted CKD-EPI (S/P/Bld) [Vol rate/Area]>60>=60 mL/min/1.73m 2NWestern Missouri Mental Health CenterTB EGFR-NON AF ROMANIAN>60>=60 mL/min/1.73m 2NOMS HealthcareTB URINE T PROTEIN CREAT RATIOon 70-10-7513XDPYKXXDTL URINE RANDOM<13.58Fls05.00 - 300.00 mg/dLNOWI HealthcareTOTAL PROTEIN URINE RANDOM<6.0NINF - 11.9 mg/dLENCOMPASS HEALTH HealthcareUrinalysis macro (dipstick) panel (U)on 69-61-9603Fdojasthb, UA NegativeNegative - 4(70) +++ mg/dLENCOMPASS HEALTH HealthcareBlood, UANegativeNegative - 50 Teodoro/mcLENCOMPASS HEALTH HealthcareClarity, UAClearNOWI HealthcareColor, UAYellowNOWI HealthcareGlucose, UANegativeNegative - 2000(110) ++++ mg/dLENCOMPASS HEALTH Healthcare Interpretation and review of laboratory resultsNormalENCOMPASS HEALTH HealthcareKetones, UA NegativeNegative - 160(16) ++++ mg/dLENCOMPASS HEALTH HealthcareLeukocytes, UANegative Negative - 500+++ Robinson/[facility] HospitalNitrite, UANegativeNegative - Positive NOM HealthcarepH, UA6.55 - 9NOWI HealthcareProtein, UANegativeNegative - 2000(20) ++++ mg/dLENCOMPASS HEALTH HealthcareSpec Grav, UA1.0051 - 1.03NOWI Healthcare Urobilinogen, UA2.00.2 - 12 mg/dLCritical access hospitalTB TOTAL PROTEIN 24 HOUR URINEon 36-16-6855Txwizcznlzfntr and review of laboratory results AbnormalNOWI HealthcareProtein (U) [Mass/Vol]22.6 mg/dLHighNINF - 11.9 mg/dLPike County Memorial HospitalTB TOTAL PROTEIN 24 HOUR KEMIH877.6NINFNOCrossroads Regional Medical CenterTOTAL VOLUME 24 HOUR WBSXT594dG/24hrNOWI HealthcareCLINISYNCNSAINT FRANCIS HOSPITAL [facility] HealthcareALL CBC WITH AUTO DIFFon 31-59-5164LMWQQWJPV ABSOLUTE AUTO0.1NOMS HealthcareBasophils/100 WBC (Bld)0.5 %0.2 - 2.0 %NOMS HealthcareEosinophils/100 WBC (Bld)1.4 %0.9 - 7.0 % [facility] HealthcareErythrocyte distribution width (RBC) [Ratio]13 %11.0 - 15.0 %[facility] HealthcareHematocrit (Bld) [Volume fraction]34.4 %Low36.0 - 48.0 %[facility] HospitalHemoglobin (Bld) [Mass/Vol]11.3 g/dLLow12.0 - 16.0 g/dLPike County Memorial Hospital IMMATURE GRANULOCYTES ABS AUTO0.59HighNOWI HealthcareImmature granulocytes/100 WBC (Bld)4.4 %High0.0 - 0.5 %[facility] HospitalInterpretation and review of laboratory resultsAbnormalNOWI HealthcareLYMPHOCYTES ABSOLUTE AUTO2.4NOWI HealthcareLymphocytes/100 WBC (Bld)17.8 %Low20.5 - 60.0 %Christian HospitalH (RBC) [Entitic mass]29.4 pg26.7 - 34.0 pgNOMissouri Rehabilitation CenterHC (RBC) [Mass/Vol] 32.8 g/dL29.9 - 35.2 g/dLPike County Memorial HospitalMCV (RBC) [Entitic vol]89.4 fL81.0 - 99.0 fLPike County Memorial HospitalMONOCYTES ABSOLUTE AUTO1.1HighNOWI HealthcareMonocytes/100 WBC (Bld)8.1 %1.7 - 12.0 %[facility] HospitalNEUTROPHILS ABSOLUTE VVDX4FbvaOPNA HealthcareNeutrophils/100 WBC (Bld)67.8 %43.0 - 75.0 %[facility] HospitalPlatelet mean volume (Bld) [Entitic vol]9.6 fL9.5 - 13.5 fLPike County Memorial HospitalTBH EO #0.2NOMS [facility] HospitalTB BYM155RUUP [facility] RBC3.85LowNOMS [facility] WBC13.3High [facility] HospitalCLINISYNCarolina Center for Behavioral HealthTB URINE T PROTEIN CREAT RATIOon 90-34-2578UOFAZWRDYZ URINE RANDOM<13.42Ulj66.00 - 300.00 mg/dLPike County Memorial Hospital Interpretation and review of laboratory resultsAbnormalPike County Memorial HospitalTOTAL PROTEIN URINE RANDOM<6.0NINF - 11.9 mg/dLPike County Memorial HospitalCLINISYNCarolina Center for Behavioral Health US OB BPP W NON-STRESSon 73-53-3[address] [address] Ultrasound Report Signed Patient: JUHI GAMA MR#: [id number] : 1995 Acct:[id number] Age/Sex: 30 / F ADM Date: Loc: [facility] 250-[address]: KUNAL HYATT M.D. Ordering Physician: Steph Keane Date of Service: 08/27/25 Procedure(s): US OB BPP w non-stress Accession Number(s): [id number] cc: Steph Keane; Yomaira BELTRAN [place] [address] Patient Name: JUHI GAMA MRN: [facility]:[id number] date: 1995 Sex: F Assigned Patient Location: LAB Current Patient Location: LAB Accession/Order Number: [id number] Exam Date: 08/27/2025 17:37 Report Date: 08/27/2025 [...] Morillo M.D. 08/27/2025 6:02 PM Dictation Location: [place] [address] Electronically authenticated by: [id number] Y Date: 08/27/2025 18:02 Dictated By: Jp Morillo D.O. Signed By: 08/27/251804 DD/ 01 TD/TT: Supervisor Roving Department:SATNAMadiology, Radiologist, MD - 08/27/2025 [place] [address] Ultrasound Report Signed Patient: JUHI GAMA MR#: [id number] : 1995 Acct:[id number] Age/Sex: 30 / F ADM Date: Loc: [facility] 250-[address]: KUNAL HYATT M.D. Ordering Physician: Steph Keane Date of Service: 08/27/25 Procedure(s): US OB BPP w non-stress Accession Number(s): [id number] cc: Steph Keane; Yomaira BELTRAN [place] [id number] Patient Name: JUHI GAMA MRN: [facility]:[id number] date: 1995 Sex: F Assigned Patient Location: LAB Current Patient Location: LAB Accession/Order Number: [id number] Exam Date: 08/27/2025 17:37 Report Date: 08/27/2025 [...] Morillo M.D. 08/27/2025 6:02 PM Dictation Location: [place] [address] Electronically authenticated by: [id number] Y Date: 08/27/2025 18:02 Dictated By: Jp Morillo D.O. Signed By: 08/27/251804 DD/ 01 TD/TT: Supervisor Roving Department: [facility] HealthcareRadiology Study observation (narrative)NOMShalonda SmallUS OB BPP W NON-STRESSOrdered By: Radiologist Radiology on 89-88-6810W[facility] Work Phone: Urinalysis macro (dipstick) panel (U)on 08-27-2025 Bilirubin, UANegativeNegative - 4(70) +++ mg/dLNOMS HealthcareBlood, UANegative Negative - 50 Teodoro/mcLNOMS HealthcareClarity, UAClearNOMS HealthcareColor, UA YellowNOMS HealthcareGlucose, UANegativeNegative - 2000(110) ++++ mg/dLNOMS HealthcareInterpretation and review of laboratory resultsNormalPike County Memorial Hospital Ketones, UANegativeNegative - 160(16) ++++ mg/dLENCOMPASS HEALTH HealthcareLeukocytes, UA NegativeNegative - 500+++ Robinson/mcLNOWI HealthcareNitrite, UANegativeNegative - PositiveNOWI HealthcarepH, UA65 - 9NOWI HealthcareProtein, UANegativeNegative - 2000(20) ++++ mg/dLENCOMPASS HEALTH HealthcareSpec Grav, UA1.0151 - 1.03NOW[facility] Healthcare Urobilinogen, UA2.00.2 - 12 mg/dLNOWI HealthcareNOWI HealthcareURINE CULTURE, ROUTINEon 80-56-0104Dymtqkrq identified Cx Nom (U) Urine Culture, Routine NOMS HealthcareBacteria identified Cx Nom (U)Mixed urogenital floraNOWI HealthcareBacteria identified Cx Nom (U)25,000-50,000 colony forming units per mLNOMS HealthcareBacteria identified Cx Nom (U)Performed at: - [facility] NOMS HealthcareBacteria identified Cx Nom (U)[address] [place] [address] [id number] HealthcareBacteria identified Cx Nom (U)Doctor Of Dental Medicine: Cm Sandoval PhD, Phone: [phone] HealthcareCLINISYNBOSTON NURSERY FOR BLIND BABIES Zndccvauya5ts hr Glucose Tolerance 100 gm loadon 08-51-1442Gbobcnc Tolerance Test 2 Jsaf499 [facility] Medical CenterCapillary Glucose POCon 94-87-4074Fblfrdr [Mass/Vol]88 mg/qILbvbae51-41HdiuyiElyria Memorial HospitalComment on above:Performed By: #### [id number] #### [facility] [address], [place] [address]Nyl 1 Hron 49-41-7344Yxsdser [Mass/Vol]152 mg/qGPzotcy58-454 [facility] HospitalComment on above:Performed By: #### [id number] #### [facility] [address], [place] [address]Xwt 2 Hron 94-76-1444Nmkedmd [Mass/Vol]169 mg/bQXrrq08-465 [facility] HospitalComment on above:Performed By: #### [id number] #### [facility] [address], [place] [address]Qtf 3 Hron 12-86-9321Rraegac [Mass/Vol]141 mg/pEQnyf34-604 [facility] HospitalComment on above:Performed By: #### [id number] #### [facility] [address], [place] [address]Knp Fastingon 18-57-7578Jcgyarx [Mass/Vol]82 mg/yJKcgsrp51-25 [facility] HospitalComment on above:Performed By: #### [id number] #### [facility] [address], [place] [address]Zwysiuj tolerance, 1 houron 63-28-8161Edizmaq Tolerance Test 1 Rcth334GnfTtpzme Health SystemGlucose tolerance, 3 hourson 25-67-0883Bogsgxg Tolerance Test 3 Njzw128SuoLnfyme Health SystemGlucose, tolerance fastingon 28-40-4328Llenwnc Tolerance Test Dejweia88FplYurtyv Health SystemNo Panel Informationon 80-45-0742PrlVjaxgsOhioHealth Southeastern Medical CenterCBC w/ Auto Diffon 08-12-2025 Basophil Absolute0.1 E9/LNormal0.0-0.2[facility] CenterComment on above:Performed By: #### [id number] #### [facility] [address] [place] [address]Fdynbkmzf/100 WBC (Bld)0.6 %Normal0.0-2.0[facility] Memorial HospitalComment on above:Performed By: #### [id number] #### [facility] [address], [place] [address]Zsb Absolute0.1 E9/LNormal0.0-0.5[facility] Comment on above:Performed By: #### [id number] #### [facility] [address] [place] [address]Ksbglfiyfss/100 WBC (Bld)1.0 %Normal0.0-8.0[facility] HospitalComment on above:Performed By: #### [id number] #### [facility] [address], [place] [address]Afafsjhxxbm distribution width (RBC) [Ratio]12.9 %Normal 10.9-14.2FSelect Medical Cleveland Clinic Rehabilitation Hospital, Edwin ShawComment on above:Performed By: #### [id number] #### [facility] [address] [place], [place] [address]Yakpmlqzdd (Bld) [Volume fraction]33.1 %Low34.0-46.0[facility] Memorial HospitalComment on above:Performed By: #### [id number] #### [facility] [address], [place] [address]Nhlowcqpem (Bld) [Mass/Vol]11.4 g/dLLow12.0-16.0[facility] Memorial HospitalComment on above:Performed By: #### [id number] #### [facility] [address] [place] [address]Pswza Absolute2.0 E9/LNormal1.0-4.0[facility] Comment on above:Performed By: #### [id number] #### [facility] [address], [place] [address]Vcwmmtukpwe/100 WBC (Bld)19.6 %Pamazh22.0-50.0[facility] HospitalComment on above:Performed By: #### [id number] #### [facility] [address], [place] [address]XDN (RBC) [Entitic mass]29.9 svRtnutj66.0-34.0[facility] HospitalComment on above:Performed By: #### [id number] #### [facility] [address], [place] [address]RRKD (RBC) [Mass/Vol]34.4 g/iCXucynp63.4-36.0[facility] HospitalComment on above:Performed By: #### [id number] #### [facility] [address], [place] [address]LUK (RBC) [Entitic vol]86.7 dLMxmakm61.0-100.0[facility] HospitalComment on above:Performed By: #### [id number] #### [facility] [address], [place] [address]Buvn Absolute0.5 E9/LNormal0.2-1.0[facility] Comment on above:Performed By: #### [id number] #### [facility] [address], [place] [address]Wpjuztpld/100 WBC (Bld)4.6 %Normal4.0-14.0[facility] Memorial HospitalComment on above:Performed By: #### [id number] #### [facility] [address], [place] [address]Yopnrm Absolute7.5 E9/LNormal2.0-7.5FSelect Medical Cleveland Clinic Rehabilitation Hospital, Edwin Shaw Comment on above:Performed By: #### [id number] #### [facility] [address] [place] [address]Atjvmy Auto74.2 %Gjtopd58.0-75.0[facility] Comment on above:Performed By: #### [id number] #### [facility] [address] [place] [address]Vvlpkuim947.0 E9/CTluvfo198.0-500.0[facility] Comment on above:Performed By: #### [id number] #### [facility] [address] [place] [address]Cutummcl mean volume (Bld) [Entitic vol]8.1 fLNormal6.4-10.8 [facility] HospitalComment on above:Performed By: #### [id number] #### [facility] [address], [place] [address]ZBX9.8 E12/LLow4.3-5.9[facility] Memorial HospitalComment on above:Performed By: #### [id number] #### [facility] [address] [place] [address]IAV04.1 E9/LNormal4.0-11.0[facility] HospitalComment on above:Performed By: #### [id number] #### [facility] [address] [place], [place] [address]Cbbpaxjcal 69-71-8082Zduyqdxx Lvl7 ng/sIQcn99-296XtspaiElyria Memorial HospitalComment on above:Performed By: #### [id number] #### [facility] [address] [place], [place] [address]Jtsgzrzy 29-76-6826Zpbeld Lvl>22.3Normal>=6.7FSelect Medical Cleveland Clinic Rehabilitation Hospital, Edwin ShawComment on above:Performed By: #### [id number] #### [facility] [address] [place], [place] [address]Tacx Scr Glu 1 Hron 31-24-4434Epcqyjr [Mass/Vol]155 mg/dLHigh 55-140[facility] Memorial HospitalComment on above:Performed By: #### [id number] #### [facility] [address] [place] [address]Mwapjsk 1h post 50g loadon 06-07-7115Pfztyjx, 1 hr PP 50GM dose 155ProMedica Health SystemIronon 99-09-3361Cvyi17 microgram/wYOiouio61-595QwfggsElyria Memorial HospitalComment on above:Performed By: #### [id number] #### [facility] [address], [place] [address]Ya Panel Informationon 16-97-1923YKZS HealthcareTIBC Calculated on 57-24-9533UDEU813 microgram/tCVbng444-351SwhuvqElyria Memorial HospitalComment on above:Performed By: #### [id number] #### [facility] [address] [place], [place] [address]Yxttypabkae [Mass/Vol]455 mg/oHPyjt233-122HzbrnqElyria Memorial HospitalComment on above:Performed By: #### [id number] #### [facility] [address] [place], [place] [address]AZ OB LIMITED 1+ FETUSESon 23-36-9436IG OB LIMITED 1+ FETUSES FINDINGS: Single viable [...] Delivery: 11/28/25 Gestational Age as of 07/21/2025: 60v5nXkhgxshocq macro (dipstick) panel (U)on 60-99-3361Qsvrpemcq, UANegativeNegative - 4(70) +++ mg/dLNOMS HealthcareBlood, UANegativeNegative [...] HealthcareUrobilinogen, UA1.00.2 - 12 mg/dLNOMS HealthcareVit B12on 13-52-0815Jdbjmprpo (Vitamin B12) [Mass/Vol]205 pg/eJJtrqwa03-1942Vaywyp [facility] CenterComment on above:Performed By: #### [id number] #### [facility] [address] [place], [place] [address]IXV w/ Auto Diffon 13-27-6605Eigbzbhy Absolute0.0 E9/LNormal 0.0-0.2[facility] Hospital CenterComment on above:Performed By: #### [id number] #### [facility] [address] [place], [place] [address]Lxmwfynjo/100 WBC (Bld)0.2 %Normal0.0-2.0[facility] Memorial HospitalComment on above:Performed By: #### [id number] #### [facility] [address] [place] [address]Lpx Absolute0.1 E9/LNormal0.0-0.5FSelect Medical Cleveland Clinic Rehabilitation Hospital, Edwin Shaw Comment on above:Performed By: #### [id number] #### [facility] [address] [place], [place] [address]Ygemrtkvdne/100 WBC (Bld)0.5 %Normal0.0-8.0[facility] Memorial HospitalComment on above:Performed By: #### [id number] #### [facility] [address] [place] [address]Pooidvluckx distribution width (RBC) [Ratio]13.0 %Normal 10.9-14.2FSelect Medical Cleveland Clinic Rehabilitation Hospital, Edwin ShawComment on above:Performed By: #### [id number] #### [facility] [address] [place] [address]Dshzwirxiq (Bld) [Volume fraction]31.9 %Low34.0-46.0[facility] Memorial HospitalComment on above:Performed By: #### [id number] #### [facility] [address] [place] [address]Hrodxaqkit (Bld) [Mass/Vol]11.1 g/dLLow12.0-16.0[facility] HospitalComment on above:Performed By: #### [id number] #### [facility] [address] [place] [address]Qulvv Absolute2.1 E9/LNormal1.0-4.0[facility] Comment on above:Performed By: #### [id number] #### [facility] [address] [place], [place] [address]Gzbgpcnztbn/100 WBC (Bld)16.2 %Cfaioe92.0-50.0[facility] HospitalComment on above:Performed By: #### [id number] #### [facility] [address] [place], [place] [address]GJI (RBC) [Entitic mass]29.9 mkRtzbal08.0-34.0[facility] HospitalComment on above:Performed By: #### [id number] #### [facility] [address] [place] [address]NPDY (RBC) [Mass/Vol]34.8 g/zRKczypx48.4-36.0[facility] HospitalComment on above:Performed By: #### [id number] #### [facility] [address] [place] [address]DZB (RBC) [Entitic vol]85.7 wWAogxey69.0-100.0[facility] HospitalComment on above:Performed By: #### [id number] #### [facility] [address] [place] [address]Bfma Absolute0.9 E9/LNormal0.2-1.0[facility] Comment on above:Performed By: #### [id number] #### [facility] [address] [place] [address]Ehyfllzfy/100 WBC (Bld)7.0 %Normal4.0-14.0[facility] Memorial HospitalComment on above:Performed By: #### [id number] #### [facility] [address] [place] [address]Zdbhnc Absolute9.7 E9/LHigh2.0-7.5[facility] Comment on above:Performed By: #### [id number] #### [facility] [address] [place] [address]Tdbgxj Auto76.1 %High36.0-75.0[facility] Comment on above:Performed By: #### [id number] #### [facility] [address] [place] [address]Kmsmqifj066.0 E9/OZabekj057.0-500.0[facility] Comment on above:Performed By: #### [id number] #### [facility] [address] [place], [place] [address]Qktcgzvb mean volume (Bld) [Entitic vol]8.0 fLNormal6.4-10.8 [facility] HospitalComment on above:Performed By: #### [id number] #### [facility] [address] [place], [place] [address]HHM8.7 E12/LLow4.3-5.9[facility] Memorial HospitalComment on above:Performed By: #### [id number] #### [facility] [address] [place], [place] [address]VMV07.8 E9/LHigh4.0-11.0[facility] HospitalComment on above:Performed By: #### [id number] #### [facility] [address] [place], [place] [address]CNXxb 48-94-6662CE4 [Moles/Vol]20 mmol/TQzr48-16NbrcvoElyria Memorial HospitalComment on above:Performed By: #### [id number] #### [facility] [address] [place], [place] [address]Wcyik gap [Moles/Vol]16 mmol/LNormal6-16[facility] Memorial HospitalComment on above:Performed By: #### [id number] #### [facility] [address], [place] [address]Yebfvei [Mass/Vol]3.8 g/dLNormal3.3-5.0[facility] HospitalComment on above:Performed By: #### [id number] #### [facility] [address], [place] [address]Yepjuce/Globulin [Mass ratio]1.3 {ratio}Normal1.1-2.2FSelect Medical Cleveland Clinic Rehabilitation Hospital, Edwin ShawComment on above:Performed By: #### [id number] #### [facility] [address], [place] [address]Qog Phos78 Int._Unit/GYcqibx22-63IypqwsElyria Memorial Hospital Comment on above:Performed By: #### [id number] #### [facility] [address], [place] [address]YOU04 Int._Unit/LNormal6-46[facility] HospitalComment on above:Performed By: #### [id number] #### [facility] [address], [place] [address]JZR12 Int._Unit/LNormal5-43[facility] HospitalComment on above:Performed By: #### [id number] #### [facility] [address], [place] [address]Itpb Total0.8 mg/dLNormal0.0-1.1FSelect Medical Cleveland Clinic Rehabilitation Hospital, Edwin Shaw Comment on above:Performed By: #### [id number] #### [facility] [address], [place] [address]PMK/Creat Ratio18 No MunkxIldlcr13-38QkxbovElyria Memorial HospitalComment on above:Performed By: #### [id number] #### [facility] [address], [place] [address]Qgrqoyi [Mass/Vol]8.9 mg/dLNormal8.9-11.1FSelect Medical Cleveland Clinic Rehabilitation Hospital, Edwin ShawComment on above:Performed By: #### [id number] #### [facility] [address], [place] [address]Elhahpxo [Moles/Vol]104 mmol/ZFghdap323-044UeqtobElyria Memorial HospitalComment on above:Performed By: #### [id number] #### [facility] [address], [place] [address]Tyqympasca [Mass/Vol]0.6 mg/dLNormal0.5-1.3FSelect Medical Cleveland Clinic Rehabilitation Hospital, Edwin ShawComment on above:Performed By: #### [id number] #### [facility] [address], [place] [address]Aypxfgld (S) [Mass/Vol]3.0 g/dLNormal1.4-4.0[facility] Memorial HospitalComment on above:Performed By: #### [id number] #### [facility] [address], [place] [address]Rljoncd [Mass/Vol]92 mg/aXLfflxa25-730NlfqzbElyria Memorial HospitalComment on above:Performed By: #### [id number] #### [facility] [address], [place] [address]Qyaeeudwy [Moles/Vol]3.7 mmol/LNormal3.5-5.3FSelect Medical Cleveland Clinic Rehabilitation Hospital, Edwin ShawComment on above:Performed By: #### [id number] #### [facility] [address], [place] [address]Ncbnkkb [Mass/Vol]6.8 g/dLNormal6.0-7.8[facility] Memorial HospitalComment on above:Performed By: #### [id number] #### [facility] [address], [place] [address]Ftuwio [Moles/Vol]136 mmol/DNmqelw171-532JgwbmcElyria Memorial HospitalComment on above:Performed By: #### [id number] #### [facility] [address], [place] [address]Gduc nitrogen [Mass/Vol]11 mg/dLNormal5-21[facility] HospitalComment on above:Performed By: #### [id number] #### [facility] [address], [place] [address]Vgisy Panelon 96-21-6496Nrtxvhjsulq [Mass/Vol]239 mg/dLHigh 120-200[facility] Memorial HospitalComment on above:Performed By: #### [id number] #### [facility] [address], [place] [address]Flxkpxqrklc in HDL [Mass/Vol]88 mg/dLInvalid Interpretation CodeElyria Memorial HospitalComment on above:Result Comment: '>= 60 LOW RISK' '<= 40 HIGH RISK'Performed By: #### [id number] #### [facility] [address], [place] [address]Ohqohzbgjqv in LDL [Mass/Vol]144 mg/dLHigh<=129[facility] Memorial HospitalComment on above:Performed By: #### [id number] #### [facility] [address] [place], [place] [address]Xsiieogtwsb in VLDL [Mass/Vol]40 mg/dLNormal7-40[facility] Memorial HospitalComment on above:Performed By: #### [id number] #### [facility] [address], [place] [address]Cgfvkylbcrjb [Mass/Vol]202 mg/dLHigh<=149[facility] Memorial HospitalComment on above:Performed By: #### [id number] #### [facility] [address] [place], [place] [address]jOLHzq 63-77-5557zFYP418 mL/min/1.73 l0Veeitv>=59E[facility] Memorial HospitalComment on above:Performed By: #### [id number] #### [facility] [address], [place] [address]UQS, SERUM, OPEN SPINA BIFIDAon 22-02-6559VZH MOM0.95.[facility] HealthcareAFP VALUE59.2 ng/mL.[facility] HealthcareCOMMENT:Comment.[facility] Healthcare Comment on above:Amy Ramos, Ph.D., [facility] Director References: Available Upon Request. Multiples Of Median Cutoffs For AFP Elevations Shieh 2.5 Black 2.8 IDD 2.0 Twins 4.5 Abbreviation Definitions IDD - Insulin Dep Diabetes OSBR - Open Spina Bifida Risk For further inquiries contact [employer] at [phone]. This test was developed and its performance characteristics determined by [employer]. It has not been cleared or approved by the Food and Drug Administration. Performed at: [facility] [address] [place], [place] [id number] Doctor Of Dental Medicine: Dona Justin [facility], Phone: [phone] GEST. AGE ON COLLECTION DATE20.6. weeksNOMS HealthcareGESTAT. AGE BASED ONLMP. NOMS HealthcareComment on above:Recalculations are not recommended when gestational dating by LMP and ultrasound are within 10 days. INSULIN DEP DIABETESNo.[facility] HospitalINTERPRETATIONComment.[facility] Comment on above:Interpretation: Screen [...] Customer Services to discuss available options. The [employer] recommends amniocentesis be offered to women age 35 and older. MATERNAL AGE AT EDD30.7. yrNOWI HealthcareMULTIPLE GESTATIONNo.[facility] OSBR RISK 1 [id number].[facility] HospitalRACECaucasian.[facility] HospitalRESULTSReport. [facility] HospitalTEST RESULTS:Negative.[facility] HospitalDepqbhenrcPCAJXP650. lbMultiCare [facility] HealthcarePREGNANCY N N LMP [id number] 2 17 N 1 Y 146 N N N N N White/ CLINISYNCNOWI HealthcareUS OB 14+ WEEKS ANATOMY SCANon 16-15-2250WU OB 14+ WEEKS ANATOMY SCANEXAM: US OB [...] II, MD, PHD at 16-Jul-2025 08:07:07 AM [facility] TeleradiologyNormalNot AvailableComment on above:Order Comment: US OB ANATOMY SINGLE W US OB CERVICAL LENGTH Estimated Date of Delivery: 11/28/25 Gestational Age as of 06/22/2025: 33s0hGrnrbypquj macro (dipstick) panel (U)on 50-47-2820Ihbkjfzfq, UANegativeNegative - 4(70) +++ mg/dLNOMS HealthcareBlood, UANegativeNegative [...] 12 mg/dLNOMS HealthcareN[facility]S Healthcare RECURRENT VAGINITIS (HTRX)on 10-80-8929RFGEAZPKS QNXHIKO6IIII Healthcare ATOPOBIUM VAGINAENot detectedNOMS HealthcareBVAB 2,3 (BACTERIAL VAGINOSIS ASSOCIATED BACTERIA 2, 3); MOBILUNCUS NLB2RZTY HealthcareBVAB 2,3 (BACTERIAL VAGINOSIS ASSOCIATED BACTERIA 2, 3); MOBILUNCUS SPPNot detectedNOMS Healthcare RADHA ALBICANS, PARAPSILOSIS, TIULIRFJBH7JPLJ HealthcareCANDIDA ALBICANS, PARAPSILOSIS, TROPICALISNot detectedNOMS HealthcareCANDIDA JKVUEEOF4RGGX HealthcareCANDIDA GLABRATANot detectedNOMS HealthcareCANDIDA QFWPIK4VLIL HealthcareCANDIDA KRUSEINot detectedNOMS HealthcareCHLAMYDIA ILPDSXICSFN9UNVC HealthcareCHLAMYDIA TRACHOMATISNot detectedNOMS HealthcareGARDNERELLA VAGINALIS 17.967AbnormalNOMS HealthcareGARDNERELLA VAGINALISDetectedAbnormalNOWI HealthcareInterpretation and review of laboratory resultsAbnormalNOWI Healthcare MEGASPHAERA (TYPES 1, 2)0NOMS HealthcareMEGASPHAERA (TYPES 1, 2)Not detectedNOMS HealthcareMYCOPLASMA HOUNSFJRFI1FULD HealthcareMYCOPLASMA GENITALIUMNot detectedNOMS HealthcareNEISSERIA IOMYYUVDZKS7PKNB HealthcareNEISSERIA GONORRHOEAENot detectedNOMS HealthcareTRICHOMONAS XNZLKHSZC5UPOM Healthcare TRICHOMONAS VAGINALISNot detectedNOMS HealthcareNOMS HealthcareUrinalysis macro (dipstick) panel (U)on 26-96-1979Zxwkhqhsg, UANegativeNegative - 4(70) +++ mg/dL [facility] HealthcareBlood, UANegativeNegative - 50 Teodoro/mcLNOMS HealthcareClarity, UA ClearNOMS HealthcareColor, UAYellowNOMS HealthcareGlucose, UANegativeNegative - 2000(110) ++++ mg/dLNOMS HealthcareInterpretation and review of laboratory resultsNormalNOWI HealthcareKetones, UANegativeNegative - 160(16) ++++ mg/dLNOMS HealthcareLeukocytes, UANegativeNegative - 500+++ Robinson/mcLNOMS Healthcare Nitrite, UANegativeNegative - PositiveNOMS HealthcarepH, UA65 - 9[facility] Protein, UANegativeNegative - 1999(20) ++++ mg/dLNOMS HealthcareSpec Grav, UA 1.0051 - 1.03NOMS HealthcareUrobilinogen, UA1.00.2 - 12 mg/dLNOWI HealthcareNOWI HealthcareUrinalysis macro (dipstick) panel (U)on 76-32-7391Xvizzopdd, UA NegativeNegative - 4(70) +++ mg/dLNOWI HealthcareBlood, UANegativeNegative - 50 Teodoro/mcLNOWI HealthcareClarity, UAClearNOMS HealthcareColor, UAYellowNOWI HealthcareGlucose, UANegativeNegative - 2000(110) ++++ mg/dLENCOMPASS HEALTH Healthcare Interpretation and review of laboratory resultsNormalENCOMPASS HEALTH HealthcareKetones, UA NegativeNegative - 160(16) ++++ mg/dLENCOMPASS HEALTH HealthcareLeukocytes, UAPositive Negative - 500+++ Robinson/mcLENCOMPASS HEALTH HealthcareComment on above:smallNitrite, UA NegativeNegative - PositiveNOWI HealthcarepH, UA6.55 - 9NOMS HealthcareProtein, UANegativeNegative - 1999(20) ++++ mg/dLNOWI HealthcareSpec Grav, UA1.011 - 1.03 NOMS HealthcareUrobilinogen, UA0.20.2 - 12 mg/dLMetropolitan Saint Louis [facility] Healthcare BOX TESTon 23-01-1000AGR TEST SENT OUTunJohnson City Medical CenterLfjlawwqbxSKD3splncGAWA MdxkmmgndjSDB48/08/20NOCrossroads Regional Medical CenterUNITY BOX CLINISYNCCBC without diffon 94-81-1073Kbctotcazn (Bld) [Volume fraction]39.8 % [facility] SystemHemoglobin (Bld) [Mass/Vol]13.2 g/dLOhioHealth Southeastern Medical CenterPlatelets (Bld) [#/Vol]390 10*3/uLOhioHealth Southeastern Medical CenterRbc Mcv (Fl) By Automated Count84.7[facility] CenterDrug Screen, Urineon 05-04-2025 Amphetamine/MethamphetamineNegativeOhioHealth Doctors Hospital SystemBarbituratesNegative [facility] SystemBenzodiazepinesNegativeOhioHealth Doctors Hospital SystemCocaine MetaboliteNegativeOhioHealth Doctors Hospital SystemMethadoneNegativeOhioHealth Doctors Hospital SystemOpiatesNegativeProMedica Health SystemOxycodoneNegativeProMedica Health SystemPhencyclidineNegativeProMedica Health SystemThc Marijuana, UrineNegative [facility] SystemHBV surface Ag IA Qlon 40-41-9185Nwfhjhghp B Surface AntigenNegativeProMedica Health SystemHCV Ab IA Qlon 03-47-7858EGD Ab Ql (S) Non-ReactiveProMedinj Health SystemHIV 1+2 Ab+HIV1 p24 Ag IA Qlon 28-31-0169CVZ 1&2 AB/AGNon-ReactiveOhioHealth Doctors Hospital SystemHemoglobin A1con 94-61-3419OjR4w (Bld) [Mass fraction]5.3 %4.0 - 6.0 %[facility] SystemNo Panel Information on 00-86-7118HSUY HealthcareRubella IGG immune statusOrdered By: Angeline Velasquez on 95-74-7639Wuetyyo immune IgGProMarshall Medical Center North Health SystemType and screenon 84-24-7792Bzd/Rh(D)PositiveProKettering Memorial HospitalHCG ( test) Ql (U)on 57-44-3198Foqqgeejbldhmh and review of laboratory resultsAbnormalNOWI Healthcare Preg Test, UrPositiveNegativeNOCrossroads Regional Medical CenterNOWI HealthcareUS OB TRANSVAGINALon 00-01-0602XtpBron[place] [address] Ultrasound Report Signed Patient: JUHI COPE MR#: [id number] : 1995 Acct:[id number] Age/Sex: 30 / F ADM Date: 05/01/25 Loc: US Attending Dr: Nathan Pop D.O. Ordering Physician: Nathan Pop D.O. Date of Service: 05/01/25 Procedure(s): US OB transvaginal Accession Number(s): [id number] cc: Nathan Pop D.O.; Physician,Non-Staff Katherine The [address] [address] Patient Name: JUHI COPE MRN: [id number] date: 1995 Sex: F Assigned Patient Location: US Current Patient Location: US Accession/Order Number: [id number] Exam Date: 05/01/2025 08:57 Report Date: 05/01/2025 [...] Faria M.D. 05/01/2025 9:01 AM Dictation Location: [place] [address] Electronically authenticated by: [id number] Y Date: 05/01/2025 09:01 Dictated By: Will Faria M.D. Signed By: 05/01/2504 DD/ 0 TD/TT: Supervisor Roving Department:TBHRadiology, Radiologist, MD - 05/01/2025 [place] [address] Ultrasound Report Signed Patient: JUHI COPE MR#: [id number] : 1995 Acct:[id number] Age/Sex: 30 / F ADM Date: 05/01/25 Loc: US Attending Dr: Nathan Pop D.O. Ordering Physician: Nathan Pop D.O. Date of Service: 05/01/25 Procedure(s): US OB transvaginal Accession Number(s): [id number] cc: Nathan Pop D.O.; Physician,Non-Staff Katherine [address] [address] Patient Name: JUHI COPE MRN: [id number] date: 1995 Sex: F Assigned Patient Location: US Current Patient Location: US Accession/Order Number: [id number] Exam Date: 05/01/2025 08:57 Report Date: 05/01/2025 [...] Faria M.D. 05/01/2025 9:01 AM Dictation Location: [place] [address] Electronically authenticated by: [id number] Y Date: 05/01/2025 09:01 Dictated By: Will Faria M.D. Signed By: 05/01/25903 DD/ 0 TD/TT: Supervisor Roving Department: LAN[facility] HealthcareRadiology Study observation (narrative)LANETTE SmallUS OB TRANSVAGINALOrdered By: Radiologist Radiology on 68-48-1898HR[facility] Healthcare Work Phone: Urinalysis macro (dipstick) panel (U)on 05-01-2025 Bilirubin, UANegativeNegative - 4(70) +++ mg/dLNOMS HealthcareBlood, UANegative Negative - 50 Teodoro/mcLNOMS HealthcareClarity, UAClearNOMS HealthcareColor, UA YellowNOMS HealthcareGlucose, UANegativeNegative - 2000(110) ++++ mg/dLNOMS HealthcareInterpretation and review of laboratory resultsNormalNOWI Healthcare Ketones, UANegativeNegative - 160(16) ++++ mg/dLNOMS HealthcareLeukocytes, UA NegativeNegative - 500+++ Robinson/mcLNOMS HealthcareNitrite, UANegativeNegative - PositiveNOMS HealthcarepH, UA5.55 - 9NOMS HealthcareProtein, UANegativeNegative - 2000(20) ++++ mg/dLNOMS HealthcareSpec Grav, UA1.021 - 1.03[facility] Urobilinogen, UA1.00.2 - 12 mg/dLNOMS HealthcareNOMS HealthcareCHEMISTRYOrdered By: SYSTEM SYSTEM on 86-69-3169Danjxxrhqlvo Lvl31.35 ng/mLInvalid Interpretation CodeRemisol ChemComment on above:Result Comment: 'F NON FOLLICULAR = 0.10 - 0.60' 'LUTEAL = 3.00 - 17.5' 'MIDLUTEAL = 3.30 - 18.6' 'POST-MENOPAUSE = 0.10 - 0.40' '-FIRST TRIMESTER = 8.30 - 66.5' 'SECOND TRIMESTER = 18.9 - 66.1' 'THIRD TRIMESTER = 35.8 - 312.4' 'MALES = 0.14 - 2.06'Progesteroneon 88-87-9674Lrmftfjglobh Lvl31.35 ng/mLInvalid Interpretation CodeElyria Memorial HospitalComment on above:Result Comment: 'F NON FOLLICULAR = 0.10 - 0.60' 'LUTEAL = 3.00 - 17.5' 'MIDLUTEAL = 3.30 - 18.6' 'POST-MENOPAUSE = 0.10 - 0.40' '-FIRST TRIMESTER = 8.30 - 66.5' 'SECOND TRIMESTER = 18.9 - 66.1' 'THIRD TRIMESTER = 35.8 - 312.4' 'MALES = 0.14 - 2.06'Performed By: #### [id number] #### [facility] [address] [place], [place] [address]Phletxgiifaxvj 12-55-5349Inreylbnjxbb0.2 ng/mLNormal.[facility] Physician GroupComment on above:Result Comment: Follicular phase 0.1 - 0.9 Luteal phase 1.8 - 23.9 Ovulation phase 0.1 - 12.0 First trimester 11.0 - 44.3 Second trimester 25.4 - 83.3 Third trimester 58.7 - 214.0 Postmenopausal 0.0 - 0.1 Performed at: - [facility] [id number] Doctor Of Dental Medicine: Cm Sandoval PhD, Phone: [phone] PERFORMED BY: [address] [place] [address] PATHOLOGIST DIRECTOR PLANS ARNULFO THOMAS M.D.Performed By: #### PROG #### [facility] , Transvaginal Non-OBon 06-93-8771WS Transvaginal Non-OBExam Date/Time: 01/22/2025 16:22 EST Reason for Exam: N94.6 Report PLEASE SEE US Pelvis Non-OB Complete REPORT DATED: 01/22/2025. Ordering Provider: Nathan POP FINAL REPORT Dictated: 01/27/2025 10:11 am Siddharth Foy MD Signed (Electronic Signature): 01/27/2025 10:11 am Signed by: Siddharth Foy MD Transcribed by: ELOISA Technologist: Filiberto [facility] CenterUS Pelvis Non-OB Completeon 59-34-3095AD Pelvis Non-OB CompleteExam Date/Time: 01/22/2025 16:24 EST [...] Kate Gonzalez MD Transcribed by: ELOISA Technologist: TalyaElyria Memorial HospitalMILADY,APTIMA HPV,AGE GDLNon 90-70-3813DTL GDLN ACOG TESTINGNote.[facility] HealthcareComment on above:TESTS RESULT FLAG UNITS REF RANGE LAB Clinician Provided Cytology Information Source.............Cervix;Endocervix No. of containers..01 ThinPrep Vial Age Algo ACOG Sarah... -24 12 FLAG LEGEND: L-Low Normal,H-High Normal,LL-Alert Low,HH-Alert High <-Panic Low,>-Panic High,A-Abnormal,AA-Critical Abnormal Performed at: 01 =G [facility] [place] [address] Loren Oneal MD, IGP, RFX APTIMA HPV ASCUNote.[facility] HealthcareComment on above:TESTS RESULT FLAG UNITS REF RANGE LAB DIAGNOSIS: 02 NEGATIVE FOR INTRAEPITHELIAL LESION OR MALIGNANCY. Specimen adequacy: 02 Satisfactory for evaluation. Endocervical and/or squamous metaplastic cells (endocervical component) are present. Performed by: Sophia Calzada, Tubing Drier ([facility]) . 02 Note: Note 02 [...] <-Panic Low,>-Panic High,A-Abnormal,AA-Critical Abnormal Performed at: [address] [address] Loren Oneal MD, Performed at: =G - [facility] [id number] Doctor Of Dental Medicine: Lroen Oneal MD, Phone: [phone] Performed at: [facility] [id number] Doctor Of Dental Medicine: Loren Oneal MD, Phone: [phone] BRUSH-SPATULA CERVIX ENDOCERVIX [facility] 42-05-3117DRKRKevncdiub (WHQ) JUHI COPE ([id number]) 1995 F Date Time Provider Department 04/29/24 [...] [I10] Encounter Status:Closed by CANDIS GARCES on 04/29/24[facility] 48-58-1946SDCCNndsuqtiz (WHQ) JUHI COPE ([id number]) 1995 F Date Time Provider Department 04/25/24 CHARLENE RODRIGUEZ During your visit today, we recorded the following information about you: Anna De Leon 04/25/2024 1:10 PM Signed Pt got in sooner for surgery with her local aligning checker. Please cancel surgery and all pre and [...] Encounter Status:Closed by SUSI DE LEONLEY on 04/25/24[facility] 12-LEADon 61-08-0532[address] [address] Electrocardiograph Report Signed Patient: JUHI COPE MR#: [id number] : 1995 Acct:[id number] Age/Sex: 28 / F ADM Date: 02/13/24 Loc: PST Attending Dr: Nathan Pop D.O. Ordering Physician: Nathan Pop D.O. Date of Service: 02/13/24 Procedure(s): ECG 12 lead Accession Number(s): [id number] cc: [facility] Test Date: 2024-02-13 Pat Name: JUHI COPE Department: Room: - Gender: Female Slot Service Specialist: : 1995 Requested By: NATHAN POP Order Number: [id number] Reading MD: MARY KATE ORDAZ Measurements Intervals Virgil Rate: 86 P: 31 MO: 133 QRS: 20 QRSD: 89 T: 47 QT: 374 QTc: 449 Interpretive Statements SINUS RHYTHM No previous ECG available for comparison Electronically Signed On 02-14-2024 6:50:27 EDT by MARY KATE ORDAZ Dictated By: Mary Kate Ordaz D.O. Signed By: 02/14/24 0650 DD/ 1455 TD/TT: Supervisor Roving Department:TBHRadiology, Radiologist, MD - 02/14/[address] [address] Electrocardiograph Report Signed Patient: JUHI COPE MR#: [id number] : 1995 Acct:[id number] Age/Sex: 28 / F ADM Date: 02/13/24 Loc: PST Attending Dr: Nathan Pop D.O. Ordering Physician: Nathan Pop D.O. Date of Service: 02/13/24 Procedure(s): ECG 12 lead Accession Number(s): [id number] cc: [facility] Test Date: 2024-02-13 Pat Name: JUHI COPE Department: Room: - Gender: Female Slot Service Specialist: : 1995 Requested By: NATHAN POP Order Number: [id number] Reading MD: MARY KATE ORDAZ Measurements Intervals Virgil Rate: 86 P: 31 MO: 133 QRS: 20 QRSD: 89 T: 47 QT: 374 QTc: 449 Interpretive Statements SINUS RHYTHM No previous ECG available for comparison Electronically Signed On 02-14-2024 6:50:27 EDT by MARY KATE ORDAZ Dictated By: Mary Kate Ordaz D.O. Signed By: 02/14/24 0650 DD/ 1455 TD/TT: Supervisor Roving Department: [facility] HealthcareECG 12-LEADOrdered By: Radiologist Radiology on 86-90-1036GRJN Healthcare Work Phone: ECG 12-LEADon 13-57-5588Hjhhdkzws Study observation (narrative)LANETTE HealthcareUS PELVIS W/ TRANSVAGINALon 97-47-2416Exq[place] [address] Ultrasound Report Signed Patient: JUHI COPE MR#: [id number] : 1995 Acct:[id number] Age/Sex: 28 / F ADM Date: 01/15/24 Loc: [facility] Attending Dr: Nathan Pop D.O. Ordering Physician: Nathan Pop D.O. Date of Service: 01/15/24 Procedure(s): US pelvis w/ transvaginal Accession Number(s): [id number] cc: Nathan Pop D.O.; Physician,Non-Staff Katherine The [address] [address] Patient Name: JUHI COPE MRN: [id number] date: 1995 Sex: F Assigned Patient [facility]: [facility] Current Patient Location: [facility] Accession/Order Number: [id number] Exam Date: 01/15/2024 07:57 Report Date: 01/15/2024 [...] Signed By: 01/15/24 1144 DD/ 1142 TD/TT: Supervisor Roving Department:TBHRadiology, Radiologist, - 01/15/2024 [place] [address] Ultrasound Report Signed Patient: JUHI COPE MR#: [id number] : 1995 Acct:[id number] Age/Sex: 28 / F ADM Date: 01/15/24 Loc: [facility] Attending Dr: Nathan Pop D.O. Ordering Physician: Nathan Pop D.O. Date of Service: 01/15/24 Procedure(s): US pelvis w/ transvaginal Accession Number(s): [id number] cc: Nathan Pop D.O.; Physician,Non-Staff M.DKaren The [place] [id number] Patient Name: JUHI COPE MRN: [id number] date: 1995 Sex: F Assigned Patient Location: [facility] Current Patient Location: [facility] Accession/Order Number: [id number] Exam Date: 01/15/2024 07:57 Report Date: 01/15/2024 [...] Signed By: 01/15/24 1144 DD/ 1142 TD/TT: Supervisor Roving Department: [facility] HealthcareRadiology Study observation (narrative)[facility] HealthcareUS PELVIS W/ TRANSVAGINALOrdered By: Radiologist Radiology on 73-97-7368QUKL [employer] Work Phone: cNPTanya [phone] (Q) JUHI COPE ([id number]) 1995 F Date Time Provider Department 12/12/23 [...] [I10] Encounter Status:Closed by CANDIS GARCES on 12/12/23[facility] 67-93-0857XDTOVqpvkw Visit (GYMGME) JUHI COPE ([id number]) 1995 F Date Time Provider Department 12/10/23 10:30 AM CHARLENE RODRIGUEZ During your visit today, we recorded the following information about you: Pulse Blood pressure Weight 98/minute 124/84 68.9 kg Charlene Rodriguez DO 12/10/2023 3:14 PM Signed [facility] SECTION FOR MINIMALLY INVASIVE GYNECOLOGIC SURGERY OUTPATIENT VISIT DATE 12/10/2023 OUTPATIENT VISIT TYPE Follow-up visit PRIMARY CARE PHYSICIAN: Denny Rodríguez [address] [place] [address] REFERRING PHYSICIAN: Self CHIEF COMPLAINT: No chief [...] MRI: no evidence of Past Gynecologic 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: 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] completed via Cover MyMeds. Juhi Cope (Morales: [id number]) - [id number] Orilissa 150MG tablets Status: Sent To Plan [...] HTN (hypertension) [I10] Encounter Status:Closed by JENIFER YLNN on 08/02/23[facility] 11-22-4216CTRFRwdbhe Visit (GYMGME) JUHI COPE ([id number]) 1995 F Date Time Provider Department 07/16/23 11:30 AM CHARLENE RODRIGUEZ During your visit today, we recorded the following information about you: Blood pressure Last Period 136/90 07/08/23 Charlene Rodriguez DO 07/16/2023 12:41 PM Signed [facility] SECTION FOR MINIMALLY INVASIVE GYNECOLOGIC SURGERY OUTPATIENT VISIT DATE 07/16/2023 OUTPATIENT VISIT TYPE Follow-up visit PRIMARY CARE PHYSICIAN: Denny Rodríguez [address] [place] [address] REFERRING PHYSICIAN: Denny Rodríguez CHIEF COMPLAINT: No [...] additional bowel lesions identified Past Gynecologic History: 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 IMPRESSION: No deep infiltrating endometriosis. Supervisor Roving Department: DAVID Transcribe Date/Time: Jun 12 2023 2:54P Dictated by : ASHLEY DUKE MD This examination was interpreted and the report reviewed and electronically signed by: SONIDO FLAHERTY MD on Jun 12 2023 4:51PM EST [id number] Regional Medical CenterCNPNon [id number] (GYNMN) JUHI COPE ([id number]) 1995 F Date Time Provider Department 05/11/23 CHARLENE RODRIGUEZ GYNMN During your visit today, we recorded the following information about you: Tawana Nair [facility] [place] 05/11/2023 1:21 PM Signed Reason for call: [...] aygestin 5mg daily. 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 Encourage to pick up and delivery driver the flexeril as this will help with the cramping. Reviewed red flag bleeding symptoms that require trip to ER (soaking greater than one overnight pad per hour, chest pain, shortness of breath, fatigue, palpitations).. Advised keep appt. Gives verbal understanding. Appointments for Next 60 Days Date Time Provider Location Dept Phone 05/17/2023 1:00 PM CHARLENE RODRIGUEZ [facility] [place] [phone] Candis Suárez RN Allergies As of Date: 05/11/2023 (No Known Allergies) Date Reviewed: 05/09/2023 Reviewed by: Jihan Downs APRN.CLINICAL SYSTEMS EDUCATOR - Fully Assessed Reason for Visit: Vaginal [...] [I10] Encounter Status:Closed by CANDIS WILLINGHAM on 05/11/23[facility] CenterGracie [id number] Visit ([facility]) NITO COPEIS ([id number]) 1995 F Date Time Provider Department 05/01/23 10:30 AM JIHAN DOWNS [facility] During your visit today, we recorded the following information about you: Blood pressure Weight Height Last Period 148/64 64.9 kg 1.575 m 04/22/23 Jihan Downs APRN.CLINICAL SYSTEMS EDUCATOR 05/09/2023 11:46 AM Signed Juhi Cope is a 28 year old female who presents for problem visit for pain HPI: Pain is week before period and week of period. Worse on her period for every day she's bleeding Urinary - No symptoms GI - Always constipated. 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 History LMP: 03/26/2023 (Approximate), Having periods Age at Menarche: Age at First : Age at Menopause: Entry Level Marketing Representative History Comments: Sexual Activity: Never; No partner [...] physical therapy - or can go locally pelvicZubieab.WirelessGate Trial flexeril at bedtime Can consider Baclofen [...] physical therapy - or can go locally pelvicZubieab.WirelessGate Trial flexeril at bedtime Can consider Baclofen suppositories - let me know if you want to trial after you go to PT Contin (more content not included)...NormalMemorial HospitalCHEMISTRY Ordered By: SYSTEM SYSTEM on 18-15-8853Xpzspiq [Mass/Vol]4.3 g/dLNormal3.3 - 5.0 gm/dLFT RemisolAlbumin/Globulin [Mass [...] [Mass/Vol]8.8 mg/dLLow8.9 - 11.1 mg/dLFTMC RemisolChloride [Moles/Vol]100 mmol/VJib607 - 111 mmol/LFTMC RemisolCO2 [Moles/Vol]24 mmol/L Bltzhi44 - 31 mmol/LFTMC RemisolCreatinine [Mass/Vol]1.0 mg/dLNormal0.5 - 1.3 mg/dLFTMC RemisolGFR/1.73 sq M.predicted among blacks MDRD (S/P/Bld) [Vol rate/Area]mL/min/1.73 b3Qkvmfo>=59mL/min/1.73 m2FTMC Chem SGFR/1.73 sq M.predicted among non-blacks MDRD (S/P/Bld) [Vol rate/Area]mL/min/1.73 m8Onyuxy >=59mL/min/1.73 m2FTMC Chem SGlobulin (S) [Mass/Vol]3.6 g/dLNormal1.4 - 4.0 gm/dLFTMC RemisolGlucose [Mass/Vol]104 mg/bMJizgzi57 - 199 mg/dLFTMC Remisol Potassium [Moles/Vol]3.6 mmol/LNormal3.5 - 5.3 mmol/LFTMC RemisolProtein [Mass/Vol]7.9 g/dLHigh6.0 - 7.8 gm/dLFTMC RemisolSodium [Moles/Vol]134 mmol/LLow 135 - 145 mmol/LFTMC RemisolUrea nitrogen [Mass/Vol]10 mg/dLNormal5 - 21 mg/dL FTMC RemisolUrea nitrogen/Creatinine [Mass ratio]10 mg/gpMmaqsc04 - 20FTMC RemisolHEMATOLOGYOrdered By: Amairani Jenkins on 52-15-2815Jgfxrjmpgvzs Ql (Bld) Present (01/31/23 2:10 PM)NormalFTMC HemeManSSErythrocyte [...] fLNormal6.4 - 10.8 fLFTMC HemeAutoSSPlatelets (Bld) [#/Vol]471.0 E9/MLgbazo165.0 - 500.0 E9/LFTMC HemeAutoSSRBC (Bld) [#/Vol]4.3 E12/LNormal4.3 [...] - 0.5 E9/L FTMC HemeAutoSSLymphocytes/100 WBC (Bld)31.7 %Amyhmq96.0 - 50.0 %FT[facility] HemeAutoSS Lymphocytes/Leukocytes Auto (Bld) [Pure # fraction]2.4 E9/LNormal1.0 - 4.0 E9/L [facility] HemeAutoSSMonocytes/100 WBC (Bld)9.1 %Normal4.0 - 14.0 %[facility] HemeAutoSS Monocytes/Leukocytes Auto (Bld) [Pure # fraction]0.7 E9/LNormal0.2 - 1.0 E9/L [facility] HemeAutoSSNeutrophils/100 WBC (Bld)57.4 %Vtujzv50.0 - 75.0 %[facility] HemeAutoSS Neutrophils/Leukocytes Auto (Bld) [Pure # fraction]4.3 E9/LNormal2.0 - 7.5 E9/L FTMC HemeAutoSSSEROLOGYOrdered By: Patricia Newton on 86-86-7149LWR.beta subunit (U) [Moles/Vol]NegativeNormalFT Man SeroURINALYSISOrdered By: Solomon Leal on 88-75-4037Eosediipd Ql (U)Negative (01/31/23 1:57 PM)NormalNegativeFTMC UA Auto SSClarity (U)Clear (01/31/23 1:57 PM)NormalClearFTMC UA Auto SSColor (U)Yellow (01/31/23 1:57 PM)NormalYellowFTMC UA Auto SSEpithelial cells.squamous LM.HPF (Urine sed) [#/Area]3-4 /HPFNormal0-2/HPFFTMC UA Auto SSGlucose Test strip (U) [Mass/Vol]Negative (01/31/23 1:57 PM)NormalNegativeFT UA Auto SSHemoglobin Ql (U)Negative (01/31/23 1:57 PM)NormalNegativeFTMC UA Auto SSKetones (U) [Mass/Vol]Negative (01/31/23 1:57 PM)NormalNegativeFT UA Auto SSLithium.plasma/[place].RBC (Bld) [Mass ratio]0-3 /HPFNormal0-3/HPFFTMC UA Auto SSNitrite Ql (U)Negative (01/31/23 1:57 PM)NormalNegativeMCBR[facility] [place] UA Auto SSpH (U)6.0 *NA* (01/31/23 1:57 PM)Invalid Interpretation Code5.0 - 9.0MC[facility] [place] UA Auto SSProtein (U) [Mass/Vol]Negative (01/31/23 1:57 PM)NormalNegativeMCBRIDE [facility] [place] UA Auto SSSpecific gravity (U) [Rel density] 1.010 *NA* (01/31/23 1:57 PM)Invalid Interpretation Code1.005 - 1.030MC[facility] [place] UA Auto SSUA Spec DescClean Catch (01/31/23 1:57 PM)NormalMCBRIDE [facility] [place] UA Auto SSUrobilinogen Qn (U)0.9233742 {Aspen'U}/dL Normal0.0 - 1.0 EU/dLMCBRIDE [facility] [place] UA Auto SSWBC Auto Ql (U)Negative (01/31/23 1:57 PM)NormalNegativeMCBR[facility] [place] UA Auto SSWBC LM.HPF (Urine sed) [#/Area]0-5 /HPFNormal0-5/HPFMCBRIDE [facility] [place] UA Auto SSBLOOD BANKOrdered By: Teena Quiroz on 10-49-4388WXD/Rh InterpPositiveInvalid Interpretation CodeMCBRIDE [facility] [place] BB SubsectionABSC Gel InterpNegative (12/30/22 11:28 AM)NormalMCBRIDE [facility] [place] BB SubsectionCHEMISTRYOrdered By: SYSTEM SYSTEM on 55-49-7285Bhcwt gap [Moles/Vol]12 mmol/LNormal6 - 16 mEq/LFTMC RemisolCalcium [Mass/Vol]8.6 mg/dLLow8.9 - 11.1 mg/dLFTMC RemisolChloride [Moles/Vol]103 mmol/L Bmggvz640 - 111 mmol/LFTMC RemisolCO2 [Moles/Vol]26 mmol/DVibylk97 - 31 mmol/L FT[facility] RemisolCreatinine [Mass/Vol]0.9 mg/dLNormal0.5 - 1.3 mg/dLFTMC Remisol GFR/1.73 sq M.predicted among blacks MDRD (S/P/Bld) [Vol rate/Area]mL/min/1.73 p7Unaceu>=59mL/min/1.73 m2FT Chem SGFR/1.73 sq M.predicted among non-blacks MDRD (S/P/Bld) [Vol rate/Area]mL/min/1.73 w7Igrfis>=59mL/min/1.73 m2FT Chem S Glucose [Mass/Vol]105 mg/jFYxpdwx37 - 199 mg/dLFTMC RemisolPotassium [Moles/Vol] 3.8 mmol/LNormal3.5 - 5.3 mmol/LFTMC RemisolSodium [Moles/Vol]137 mmol/LNormal 135 - 145 mmol/LFTMC RemisolUrea nitrogen [Mass/Vol]17 mg/dLNormal5 - 21 mg/dL FTMC RemisolUrea nitrogen/Creatinine [Mass ratio]19 mg/lwQgclvl41 - 20FTMC RemisolCOAGULATIONOrdered By: Courtney Tang on 75-98-9340nLUY Coag (PPP) [Time]31.5 hGoefna77.1 - 36.5 second(s)FTMC Auto CoagINR Coag (PPP) [Relative time]1.0 {INR}Invalid Interpretation CodeFTMC Auto CoagPT Coag (PPP) [Time]11.7 sNormal 9.4 - 12.5 second(s)[facility] Auto CoagHEMATOLOGYOrdered By: SYSTEM SYSTEM on 05-50-5465Fpakixofh/100 WBC (Bld)1.2 %Normal0.0 - 2.0 %FT[facility] HemeAutoSS Basophils/Leukocytes Auto (Bld) [Pure # fraction]0.1 E9/LNormal0.0 - 0.2 E9/L [facility] HemeAutoSSEosinophils/100 WBC (Bld)4.1 %Normal0.0 - 8.0 %[facility] HemeAutoSS Eosinophils/Leukocytes Auto (Bld) [Pure # fraction]0.2 E9/LNormal0.0 - 0.5 E9/L [facility] HemeAutoSSLymphocytes/100 WBC (Bld)40.5 %Aenqte93.0 - 50.0 %[facility] HemeAutoSS Lymphocytes/Leukocytes Auto (Bld) [Pure # fraction]2.3 E9/LNormal1.0 - 4.0 E9/L [facility] HemeAutoSSMonocytes/100 WBC (Bld)7.6 %Normal4.0 - 14.0 %[facility] HemeAutoSS Monocytes/Leukocytes Auto (Bld) [Pure # fraction]0.4 E9/LNormal0.2 - 1.0 E9/L [facility] HemeAutoSSNeutrophils/100 WBC (Bld)46.6 %Zgepgd26.0 - 75.0 %[facility] HemeAutoSS Neutrophils/Leukocytes Auto (Bld) [Pure # fraction]2.6 E9/LNormal2.0 - 7.5 E9/L [facility] HemeAutoSSHEMATOLOGYOrdered By: Courtney Case on 72-28-8368Giesbbktrku distribution width (RBC) [Ratio]14.1 %Culjxn18.9 - 14.2 %[facility] HemeAutoSS Hematocrit (Bld) [Volume fraction]31.5 %Low34.0 - 46.0 %[facility] HemeAutoSS Hemoglobin (Bld) [Mass/Vol]10.0 g/dLLow12.0 - 16.0 gm/dLFTMC HemeAutoSSMCH (RBC) [Entitic mass]25.3 pgLow27.0 - 34.0 pgFTMC HemeAutoSSMCHC (RBC) [Mass/Vol]31.8 g/nKGliiqu93.4 - 36.0 gm/dLFTMC HemeAutoSSMCV (RBC) [Entitic vol]79.6 fLLow80.0 - 100.0 fLFTMC HemeAutoSSPlatelet mean volume (Bld) [Entitic vol]7.7 fLNormal6.4 - 10.8 fLFTMC HemeAutoSSPlatelets (Bld) [#/Vol]264.0 E9/FYgoeqf803.0 - 500.0 E9/LFTMC HemeAutoSSRBC (Bld) [#/Vol]4.0 E12/LLow4.3 - 5.9 E12/LFTMC HemeAutoSS WBC corrected for nucl RBC Auto (Bld) [#/Vol]5.7 E9/LNormal4.0 - 11.0 E9/LFTMC HemeAutoSSURINALYSISOrdered By: Courtney Case on 52-31-5154Rwkjfdli LM Ql (Urine sed)Trace /HPFNormalTrace/HPFFTMC UA Auto SSBilirubin Ql (U)Negative (12/30/22 8:53 AM)NormalNegativeMCBR[facility] [place] UA Auto SSClarity (U)Clear (12/30/22 8:53 AM)NormalClearFLAUREATE [facility] [place] UA Auto SSColor (U)Yellow (12/30/22 8:53 AM)NormalYellowMCBRIDE [facility] [place] UA Auto SSEpithelial cells.squamous LM.HPF (Urine sed) [#/Area]0-2 /HPFNormal0-2/HPFMCBRIDE [facility] [place] UA Auto SSGlucose Test strip (U) [Mass/Vol]Negative (12/30/22 8:53 AM)NormalNegativeMCBR[facility] [place] UA Auto SSHemoglobin Ql (U)2+ *ABN* (12/30/22 8:53 AM)Invalid Interpretation CodeNegativeMCBR[facility] [place] UA Auto SSKetones (U) [Mass/Vol]Negative (12/30/22 8:53 AM)NormalNegativeMCBR[facility] [place] UA Auto SSLithium.plasma/[place].RBC (Bld) [Mass ratio]4-20 /HPFNormal0-3/HPFMCBRIDE [facility] [place] UA Auto SSNitrite Ql (U)Negative (12/30/22 8:53 AM)NormalNegativeMCBR[facility] [place] UA Auto SSpH (U)6.0 *NA* (12/30/22 8:53 AM)Invalid Interpretation Code5.0 - 9.0[facility] [place] UA Auto SSProtein (U) [Mass/Vol]Negative (12/30/22 8:53 AM)NormalNegativeMCBR[facility] [place] UA Auto SSSpecific gravity (U) [Rel density] 1.025 *NA* (12/30/22 8:53 AM)Invalid Interpretation Code1.005 - 1.030MC[facility] [place] UA Auto SSUA Spec DescClean Catch (12/30/22 8:53 AM)NormalMCBRIDE [facility] [place] UA Auto SSUrobilinogen Qn (U)0.8733889 {Aspen'U}/dL Normal0.0 - 1.0 EU/dLMCBRIDE [facility] [place] UA Auto SSWBC Auto Ql (U)Negative (12/30/22 8:53 AM)NormalNegativeMCBR[facility] [place] UA Auto SSWBC LM.HPF (Urine sed) [#/Area]0-5 /HPFNormal0-5/HPFMCBRIDE [facility] [place] UA Auto SSOffice Visiton 07-91-8375Ibbeoj-up [id number] Juhi Cope 1995 F Date Provider Department Center 12/05/2022 [id number], GINA [facility] WOM None Chart Close Cosign Required by: Opal Ross MD[VARUND] No family history on file Level of Service:71308 MO OFFICE/OUTPATIENT ESTABLISHED LOW MDM 20-29 MIN (GE,GC) Reason for Visit and Comments: Blood Pressure Check [299][facility] SHSProgress Noteon 13-85-1683Kkcyxozz Note Attestation signed by Opal Ross MD at 12/05/2022 3:19 PM [facility]: This patient was seen in the Women's [...] about 4 weeks (around 01/02/2023) for Visit .[facility] SHSProgress NoteVital signs BP 127/87 Weight 149.2lb Pulse 106 Temp 96.7NoSt. [facility] SHSProgress Noteon 05-39-0902Zphkcrzy Note Late entry due to patient care. Resident Lacy notified of B.P 138/96 heart rate 119 around 1236 see flowsheet. Also notified checked in 1 hour via orders and B.P 143/87 pulse 111. Clarified if should check in 1 hour according to orders. . Also notified patient has discharge order in. Resident Lacy states No on rechecking. Ok to discharge. Will make patient aware.[facility] SHSProgress NotePOSTPARTUM VAGINAL DELIVERY POST DAY # [...] Name: DO Vanessa Zambrano DO 12/02/2022, 5:09 [facility]42on 10-48-33303114.5mm flanges given to patient. Encouraged her to call for observation of pump session and smaller flanges. Martha in NICU to assist with personal pump.Trinity HealthCARECOORDon 12-52-6984XRQOPLYAV46 year old admitted for induction of labor [...] to home. Denies any concerns at this time.[facility] SHSProgress Noteon 87-14-9802Hpbbwlxv Note NOTE - VAGINAL DELIVERY POST DAY [...] with more than 50% of the total rqlx-an-duse time of the visit in counseling/coordination of care. , 9:22 [facility] TDS16uj 24-45-204207Frmkp given to patient and educated how to use and to bring to [facility] HYV34Lrtqwo pump use indicated for this pt. 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 Bowden; Dr. Kramer Information: Information for the patient's : Francie Cope [[id number]] Information for the patient's : Francie Cope [[id number]] Description: normal Meconium Noted: No Anesthesia: epidural [...] for: RUBELLAIGG Irina Kramer, DO 11/30/2022, 4:04 [facility]NHeart [facility] SHSProgress Noteon 63-99-5295Tqbggbkw NoteFoley catheter inserted by Andi Bacon RN, catheter drained and emptied for 900cc. Catheter secured to leg.[facility] SHSProgress NotePatient up to bathroom but remains unable to void. Bladder scan completed and reads >570. Sent secure message to Dr. Ruiz letting her know the above. Instructed to place chauhan catheter.Progress Note Secure message sent to Dr. Gamez stating patient is having difficulty voiding, patient's perineum is very swollen, and that patient was straight cathed for 950ml at noon. Received order for benadryl to help with swelling. Proess NoteNutrition rescreen completed. Chart reviewed. Patient to be monitored and followed by the diet scada technician. Suad Samuels, DTNuvance Health SHSProgress NotePatient unable to void, last straight cathed at 0400. Bladder scan obtained for >928 ml, fundus +2 and shifted to right. Patient straight cathed on attempt x2 by Andi Bacon RN for 950cc. Will continue to monitor.[facility] SHSCAREPLNon 75-20-1003LZFWAWPStm patient will continue to make cervical change. Clotilde Mg, RNNoSt. Andrew's [facility] Center SHSLaboratory - Hematology and Cell countsOrdered By: Lucrecia Cervantes on 84-39-3832Fgocqoanm (Bld) [#/Vol]386 10*3/uL140 - 440 10*3/uLSuohiohealth pickerington methodist hospital HealthPlatelets (Bld) [#/Vol]Ordered By: Lucrecia Cervantes on 26-95-6979Ffcfhpfxddcozm and review of laboratory resultsNormal [facility]. agalactiae DNA TENA+probe Ql (Unsp spec)on 11-29-2022 Group B Strep ScreenNot detectedNot [facility] HealthInterpretation and review of laboratory resultsNoOhioHealth Pickerington Methodist HospitalMethodology: real-time PCRSMercyOne Cedar Falls Medical CenterABO and Rh group Confirm Nom (Bld)on 35-04-2427JTR group Nom (Bld)OSumma HealthD Ag Ql (RBC)PositiveSumAdams County Regional Medical Center HealthBlood type and Crossmatch panel (Bld)on 49-50-9220MFY group Nom (Bld)OSumma HealthBlood group antibody screen GEL QlNegativeSumma HealthD Ag Ql (RBC)PositiveSumak Healthmma HealthCBC panel Auto (Bld)Ordered By: Lauren Ayers on 94-24-1697Tglscrskyfu distribution width (RBC) [Ratio]13.3 %11.5 - 14.5 %[facility] Centera HealthHematocrit (Bld) [Volume fraction]33.8 %Low35.0 - 47.0 %[facility] HealthHemoglobin (Bld) [Mass/Vol] 11.2 g/dLLow11.7 - 16.0 g/dLSumma HealthInterpretation and review of laboratory resultsAbnormalSKindred Hospital LimaH (RBC) [Entitic mass]28.0 pg26.0 - 34.0 pgSKindred Hospital LimaHC (RBC) [Mass/Vol]33.1 %32.0 - 36.0 %[facility] Centera HealthMCV (RBC) [Entitic vol]84.4 fL80.0 - 98.0 fLSumma HealthPlatelet mean volume (Bld) [Entitic vol]8.3 fL7.4 - 12.4 fLSumma HealthPlatelets (Bld) [#/Vol]319 10*3/uL140 - 440 10*3/uL Summa HealthRBC (Bld) [#/Vol]4.00 10*6/uL3.8 - 5.20 10*6/uLSumma HealthWBC (Bld) [#/Vol]18.9 10*3/uLHigh3.6 - 10.7 10*3/uLSumma HealthRegional Medical Center HealthComprehensive metabolic 1998 panelon 91-80-3200Blqwswa [Mass/Vol]3.9 g/dL3.5 - 5.0 g/dLSumma HealthALP [Catalytic [...] HealthGFR/1.73 sq M.predicted MDRD (S/P/Bld) [Vol rate/Area]- [facility] Medical CenterComment on above: Calculation based on the Chronic Kidney Disease Epidemiology Collaboration (CKD- EPI) equation refitwithout adjustment for raceGlucose [Mass/Vol]158 mg/mMDexm96 - 100 mg/dLSumma HealthInterpretation and review of laboratory resultsAbnormal Summa HealthPotassium [Moles/Vol]4.1 mmol/L3.5 - 5.1 mmol/LSumma HealthProtein [Mass/Vol]7.5 g/dL6.3 - 8.2 g/dLSumma HealthSodium [Moles/Vol]133 mmol/MPdj670 - 145 mmol/LSumma HealthUrea nitrogen [Mass/Vol]5 mg/dLLow7 - 17 mg/dLSumma HealthSumma HealthLaboratory - Hematology and Cell countsOrdered By: Shruthi Fontana on 85-86-8333Ndrgjybcw (Bld) [#/Vol]335 10*3/uL140 - 440 10*3/uLSumma HealthPlatelets (Bld) [#/Vol]Ordered By: Shruthi Fontana on 11-28-2022 Interpretation and review of laboratory resultsNormSalem City Hospital Health CHEMISTRYOrdered By: Bday on 05-26-1940Optb T4 index Calc [Mass/Vol] 5.98 ng/dLNormal5.90 - [...] Code0.1 - 0.9 mg/dL FT RemisolChloride [Moles/Vol]102 mmol/EKekldk627 - 111 mmol/LFTMC RemisolCO2 [Moles/Vol]18 mmol/LLow21 - 31 mmol/LFTMC RemisolCreatinine [Mass/Vol]0.6 mg/dL Normal0.5 - 1.3 mg/dLFTMC RemisolGFR/1.73 sq M.predicted among blacks MDRD (S/P/Bld) [Vol rate/Area]mL/min/1.73 f2Dcquhv>=59mL/min/1.73 m2FTMC Chem S GFR/1.73 sq M.predicted among non-blacks MDRD (S/P/Bld) [Vol rate/Area] mL/min/1.73 w8Jlljlq>=59mL/min/1.73 m2MCBR[facility] [place] Chem SGlobulin (S) [Mass/Vol]4.0 g/dL Normal1.4 - 4.0 gm/dLMCBRIDE [facility] [place] RemisolPotassium [Moles/Vol]3.7 mmol/LNormal3.5 - 5.3 mmol/LFTMC RemisolProtein [Mass/Vol]7.1 g/dLNormal6.0 - 7.8 gm/dLMCBRIDE [facility] [place] Remisol Sodium [Moles/Vol]132 mmol/MMaa593 - 145 mmol/LFTMC RemisolUrate [Mass/Vol]4.9 mg/dLNormal2.2 - 7.4 mg/dLMCBRIDE [facility] [place] RemisolUrea nitrogen [Mass/Vol]7 mg/dLNormal5 - 21 mg/dLMCBRIDE [facility] [place] RemisolCOAGULATIONOrdered By: Amairani Jenkins on 55-14-0734iKBA Coag (PPP) [Time]25.3 mMqdhjl24.1 - 36.5 second(s)[facility] [place] Auto Coag Fibrin+Fibrinogen fragments (S) [Mass/Vol]>10 and <40 *ABN* (11/27/22 3:14 PM)Invalid Interpretation Code<10MC[facility] [place] Man SeroFibrinogen Coag (PPP) [Mass/Vol]539 mg/bVBzqp047 - 393 mg/dLMCBRIDE [facility] [place] Auto CoagINR Coag (PPP) [Relative time]0.9 {INR}Invalid Interpretation CodeMCBRIDE [facility] [place] Auto CoagPT Coag (PPP) [Time]10.1 sNormal9.4 - 12.5 second(s)[facility] [place] Auto CoagHEMATOLOGYOrdered By: Raquel Arteaga on 25-20-7753Jllpinoeoks distribution width (RBC) [Ratio]12.9 %Pkmaui01.9 - 14.2 % [facility] HemeAutoSSHematocrit (Bld) [Volume fraction]34.2 %Ayxyzb63.0 - 46.0 %[facility] [place] [facility] HemeAutoSSHemoglobin (Bld) [Mass/Vol]11.0 g/dLLow12.0 - 16.0 gm/dLMCBRIDE [facility] [place] HemeAutoSSMCH (RBC) [Entitic mass]27.3 prHwcchv10.0 - 34.0 pgFTMC HemeAutoSSMCHC (RBC) [Mass/Vol]32.3 g/jEXiobgo78.4 - 36.0 gm/dLFT HemeAutoSSMCV (RBC) [Entitic vol]84.6 dDBpjdre76.0 - 100.0 fLFT HemeAutoSSPlatelet mean volume (Bld) [Entitic vol]8.2 fLNormal6.4 - 10.8 fLFT HemeAutoSSPlatelets (Bld) [#/Vol]273.0 E9/YXyorkr202.0 - 500.0 E9/LFC HemeAutoSSRBC (Bld) [#/Vol]4.0 E12/LLow4.3 - 5.9 E12/LFLAUREATE PSYCHIATRIC [facility] [place] HemeAutoSSWBC corrected for nucl RBC Auto (Bld) [#/Vol]15.7 E9/LHigh4.0 - 11.0 E9/LFC HemeAutoSSComment on above:Result Comment: Slide reviewed by ts Unable to obtain accurate platelet count due to platelet clumping. Platelet count estimate appears normal on slide..URINALYSISOrdered By: Amairani Jenkins on 30-30-1508Ptlkdtupp Ql (U)Negative (11/27/22 1:55 PM)NormalNegativeMCBR[facility] [place] UA Auto SSClarity (U)Clear (11/27/22 1:55 PM)NormalClearFLAUREATE PSYCHIATRIC [facility] [place] UA Auto SSColor (U)Yellow (11/27/22 1:55 PM)NormalYellowFT UA Auto SSEpithelial cells.squamous LM.HPF (Urine sed) [#/Area]3-4 /HPFNormal0-2/HPFFTMC UA Auto SSGlucose Test strip (U) [Mass/Vol]Negative (11/27/22 1:55 PM)NormalNegativeMCBRIDE [facility] [place] UA Auto SSHemoglobin Ql (U)1+ *ABN* (11/27/22 1:55 PM)Invalid Interpretation CodeNegativeFT UA Auto SSKetones (U) [Mass/Vol]Negative (11/27/22 1:55 PM)NormalNegativeMCBRIDE [facility] [place] UA Auto SSLithium.plasma/[place].RBC (Bld) [Mass ratio]4-20 /HPFNormal0-3/HPFMCBRIDE ORTHOPEDIC [facility] [place] UA Auto SSNitrite Ql (U)Negative (11/27/22 1:55 PM)NormalNegativeMCBRIDE [facility] [place] UA Auto SSpH (U)6.5 *NA* (11/27/22 1:55 PM)Invalid Interpretation Code5.0 - 9.0MC[facility] [place] UA Auto SSProtein (U) [Mass/Vol]Negative (11/27/22 1:55 PM)NormalNegativeMCBRIDE [facility] [place] UA Auto SSSpecific gravity (U) [Rel density] 1.010 *NA* (11/27/22 1:55 PM)Invalid Interpretation Code1.005 - 1.030MC[facility] [place] UA Auto SSUA Spec DescClean Catch (11/27/22 1:55 PM)NormalMCBRIDE [facility]ED[facility] [place] UA Auto SSUrobilinogen Qn (U)[id number] {[place]'U}/dL Normal0.0 - 1.0 EU/dLMCBRIDE [facility]ED[facility] [place] UA Auto SSWBC Auto Ql (U)Negative (11/27/22 1:55 PM)NormalNegativeMCBR[facility] [place] UA Auto SSWBC LM.HPF (Urine sed) [#/Area]0-5 /HPFNormal0-5/HPFMCBRIDE [facility]EDIC [facility] [place] UA Auto SSCHEMISTRYOrdered By: SYSTEM SYSTEM on 07-14-2022 Albumin [Mass/Vol]3.6 g/dLNormal3.3 - 5.0 gm/dLMCBRIDE ORTH[facility]ED[facility] [place] RemisolAlbumin/Globulin [Mass ratio]1.1 {ratio}Normal1.1 - 2.2FTMC RemisolALP [Catalytic activity/Vol]41 [iU]/iExgpcn90 - 98 Int._Unit/LFTMC RemisolALT No additional P-5'-P [Catalytic activity/Vol]19 [iU]/dNormal6 - 46 Int._Unit/LFTMC RemisolAnion gap [Moles/Vol] 11 mmol/LNormal6 - 16 mEq/LFTMC RemisolAST [Catalytic activity/Vol]21 [iU]/d Normal5 - 43 Int._Unit/LFTMC RemisolBilirubin [Mass/Vol]0.7 mg/dLNormal0.0 - 1.1 mg/dLMCBRIDE [facility] [place] RemisolBilirubin.direct [Mass/Vol]0.1 mg/dLNormal0.1 - 0.4 mg/dLFTMC RemisolBilirubin.indirect [Mass or moles/Vol]0.6 mg/dLNormal0.1 - 0.9 mg/dLFTMC RemisolCalcium [Mass/Vol]8.9 mg/dLNormal8.9 - 11.1 mg/dLFTMC RemisolChloride [Moles/Vol]107 mmol/OWpvcmz040 - 111 mmol/LFTMC RemisolCO2 [Moles/Vol]22 mmol/L Lxhuix10 - 31 mmol/LFTMC RemisolCreatinine [Mass/Vol]0.6 mg/dLNormal0.5 - 1.3 mg/dLFTMC RemisolGFR/1.73 sq M.predicted among blacks MDRD (S/P/Bld) [Vol rate/Area]mL/min/1.73 r8Oyqfjd>=59mL/min/1.73 m2FT[facility] Chem SGFR/1.73 sq M.predicted among non-blacks MDRD (S/P/Bld) [Vol rate/Area]mL/min/1.73 b6Ubvyhd >=59mL/min/1.73 m2FT[facility] Chem SGlobulin (S) [Mass/Vol]3.3 g/dLNormal1.4 - 4.0 gm/dLFTMC RemisolGlucose [Mass/Vol]99 mg/uKYfxzuf45 - 199 mg/dLFTMC Remisol Potassium [Moles/Vol]3.5 mmol/LNormal3.5 - 5.3 mmol/LFTMC RemisolProtein [Mass/Vol]6.9 g/dLNormal6.0 - 7.8 gm/dLFTMC RemisolSodium [Moles/Vol]136 mmol/L Zptcoh134 - 145 mmol/LFTMC RemisolUrea nitrogen [Mass/Vol]8 mg/dLNormal5 - 21 mg/dLFTMC RemisolUrea nitrogen/Creatinine [Mass ratio]13 mg/mnXfemsb90 - 20FT[facility] RemisolHEMATOLOGYOrdered By: SYSTEM SYSTEM on 70-16-1753Nrxokrejx/100 WBC (Bld) 0.3 %Normal0.0 - 2.0 %[facility] [...] 7.5 E9/LFTMC HemeAutoSSHEMATOLOGYOrdered By: Teena Quiroz on 48-08-8672Zqeturvkpws distribution width (RBC) [Ratio]12.9 %Normal 10.9 - 14.2 %[facility] HemeAutoSSHematocrit (Bld) [Volume fraction]33.6 %Low34.0 - 46.0 %[facility] HemeAutoSSHemoglobin (Bld) [Mass/Vol]11.5 g/dLLow12.0 - 16.0 gm/dL [facility] HemeAutoSSMCH (RBC) [Entitic mass]28.5 mlWojpbg87.0 - 34.0 pgFTMC HemeAutoSSMCHC (RBC) [Mass/Vol]34.1 g/lDFapkvc85.4 - 36.0 gm/dLFTMC HemeAutoSS MCV (RBC) [Entitic vol]83.5 yVFyxais54.0 - 100.0 fLFTMC HemeAutoSSPlatelet mean volume (Bld) [Entitic vol]8.1 fLNormal6.4 - 10.8 fLMCBRIDE [facility] [place] HemeAutoSSPlatelets (Bld) [#/Vol]271.0 E9/CKchzds825.0 - 500.0 E9/[facility] HemeAutoSSRBC (Bld) [#/Vol] 4.0 E12/LLow4.3 - 5.9 E12/[facility] HemeAutoSSWBC corrected for nucl RBC Auto (Bld) [#/Vol]13.9 E9/LHigh4.0 - 11.0 E9/[facility] HemeAutoSSURINALYSISOrdered By: Deirdre Gilliam on 68-74-5311Tureimdz LM Ql (Urine sed)Trace /HPFNormalTrace/HPFMCBRIDE [facility] [place] UA Auto SSBilirubin Ql (U)Negative (07/14/22 5:00 AM)NormalNegativeMCBRIDE [facility] [place] UA Auto SSClarity (U)Clear (07/14/22 5:00 AM)NormalClearFLAUREATE PSY[facility] [place] UA Auto SSColor (U)Yellow (07/14/22 5:00 AM)NormalYellowMCBRIDE ORTHOPEDIC [facility] [place] UA Auto SSEpithelial cells.squamous LM.HPF (Urine sed) [#/Area]3-4 /HPFNormal0-2/HPFMCBRIDE OR[facility] [place] UA Auto SSGlucose Test strip (U) [Mass/Vol]Negative (07/14/22 5:00 AM)NormalNegativeMCBRIDE [facility] [place] UA Auto SSHemoglobin Ql (U)Trace *ABN* (07/14/22 5:00 AM)Invalid Interpretation CodeNegativeMCBRIDE [facility] [place] UA Auto SSKetones (U) [Mass/Vol]Negative (07/14/22 5:00 AM)NormalNegativeMCBRIDE [facility] [place] UA Auto SSLithium.plasma/[place].RBC (Bld) [Mass ratio]0-3 /HPFNormal0-3/HPFMCBRIDE [facility] [place] UA Auto SSMucus Ql (Urine sed)Trace (07/14/22 5:00 AM)NormalMCBRIDE [facility] [place] UA Auto SSNitrite Ql (U)Negative (07/14/22 5:00 AM)NormalNegativeMCBRIDE [facility] [place] UA Auto SSpH (U)6.0 *NA* (07/14/22 5:00 AM)Invalid Interpretation Code5.0 - 9.0MCBR[facility] [place] UA Auto SSProtein (U) [Mass/Vol]Negative (07/14/22 5:00 AM)NormalNegativeMCBRIDE [facility] [place] UA Auto SSSpecific gravity (U) [Rel density] 1.020 *NA* (07/14/22 5:00 AM)Invalid Interpretation Code1.005 - 1.030MCBR[facility] [place] [facility] UA Auto SSUA Spec DescClean Catch (07/14/22 5:00 AM)NormalMCBRIDE [facility]TH[facility] [place] UA Auto SSUrobilinogen Qn (U)0.5983610 {Aspen'U}/dLNormal0.0 - 1.0 EU/dLMCBRIDE ORTH[facility]EDIC [facility] [place] UA Auto SSWBC Auto Ql (U)Negative (07/14/22 5:00 AM)NormalNegativeMCBRIDE [facility] [place] UA Auto SSWBC LM.HPF (Urine sed) [#/Area]0-5 /HPFNormal0-5/HPFMCBRIDE OR[facility] [place] UA Auto SSCHEMISTRYOrdered By: SYSTEM SYSTEM on 66-68-6965Pbmlmrs [Mass/Vol]4.4 g/dLNormal3.3 - 5.0 gm/dLFTMC Remisol Albumin/Globulin [Mass ratio]1.1 {ratio}Normal1.1 - 2.2[facility] RemisolALP [Catalytic activity/Vol]64 [iU]/qKtsayn65 - 98 Int._Unit/LFTMC RemisolALT No additional P-5'-P [Catalytic activity/Vol]107 [iU]/dHigh6 - 46 Int._Unit/LFTMC RemisolAST [Catalytic activity/Vol]63 [iU]/dHigh5 - 43 Int._Unit/LFTMC Remisol Bilirubin [Mass/Vol]1.5 mg/dLHigh0.0 - 1.1 mg/dLFTMC RemisolBilirubin.direct [Mass/Vol]0.2 mg/dLNormal0.1 - 0.4 mg/dLFTMC RemisolBilirubin.indirect [Mass or moles/Vol]1.3 mg/dLHigh0.1 - 0.9 mg/dLFTMC RemisolCholesterol [Mass/Vol]193 mg/jRRysbuu213 - 200 mg/dLFTMC RemisolCholesterol in HDL [Mass/Vol]64 mg/dL Invalid Interpretation CodeFTMC RemisolCholesterol in LDL [Mass/Vol]116 mg/dL Normal<=129mg/dLFTMC RemisolCholesterol in VLDL [Mass/Vol]13 mg/dLNormal7 - 40 mg/dLFTMC RemisolGlobulin (S) [Mass/Vol]3.9 g/dLNormal1.4 - 4.0 gm/dLFTMC RemisolProtein [Mass/Vol]8.3 g/dLHigh6.0 - 7.8 gm/dLFTMC RemisolTriglyceride [Mass/Vol]67 mg/dLNormal<=149mg/dLFTMC RemisolCOAGULATIONOrdered By: Courtney Case on 23-42-8528QJQ Coag (PPP) [Relative time]1.0 {INR}Invalid Interpretation Code [facility] Auto CoagPT Coag (PPP) [Time]12.4 oHshaij38.2 - 12.9 second(s)[facility] Auto CoagHEMATOLOGYOrdered By: SYSTEM SYSTEM on 68-44-3522Axosqimcg/100 WBC (Bld)0.7 %Normal0.0 - 2.0 %[facility] HemeAutoSSBasophils/Leukocytes Auto (Bld) [Pure # fraction]0.0 E9/LNormal0.0 - 0.2 E9/LFTMC HemeAutoSSEosinophils/100 WBC (Bld)3.2 %Normal0.0 - 8.0 %[facility] HemeAutoSSEosinophils/Leukocytes Auto (Bld) [Pure # fraction]0.2 E9/LNormal0.0 - 0.5 E9/LFTMC HemeAutoSSLymphocytes/100 WBC (Bld) 31.9 %Refaeg84.0 - 50.0 %[facility] HemeAutoSSLymphocytes/Leukocytes Auto (Bld) [Pure # fraction]1.9 E9/LNormal1.0 - 4.0 E9/LFTMC HemeAutoSSMonocytes/100 WBC (Bld)9.1 %Normal4.0 - 14.0 %[facility] HemeAutoSSMonocytes/Leukocytes Auto (Bld) [Pure # fraction]0.5 E9/LNormal0.2 - 1.0 E9/LFTMC HemeAutoSSNeutrophils/100 WBC (Bld) 55.1 %Lyquvh23.0 - 75.0 %[facility] HemeAutoSSNeutrophils/Leukocytes Auto (Bld) [Pure # fraction]3.3 E9/LNormal2.0 - 7.5 E9/LFTMC HemeAutoSSHEMATOLOGYOrdered By: Chivo Ward on 55-48-0253Jzohsvhznkv distribution width (RBC) [Ratio]12.9 % Zrbbon91.9 - 14.2 %[facility] HemeAutoSSHematocrit (Bld) [Volume fraction]40.1 %Normal 34.0 - 46.0 %[facility] HemeAutoSSHemoglobin (Bld) [Mass/Vol]13.2 g/bTEtdqcs26.0 - 16.0 gm/dLFTMC HemeAutoSSMCH (RBC) [Entitic mass]27.7 fcIfwijk47.0 - 34.0 pgFTMC HemeAutoSSMCHC (RBC) [Mass/Vol]32.8 g/iISpuuqh77.4 - 36.0 gm/dLFTMC HemeAutoSS MCV (RBC) [Entitic vol]84.3 bKUktwdr41.0 - 100.0 fLFTMC HemeAutoSSPlatelet mean volume (Bld) [Entitic vol]8.5 fLNormal6.4 - 10.8 fLFTMC HemeAutoSSPlatelets (Bld) [#/Vol]299.0 E9/GOcmpbg243.0 - 500.0 E9/LFTMC HemeAutoSSRBC (Bld) [#/Vol] 4.8 E12/LNormal4.3 - 5.9 E12/LFTMC HemeAutoSSWBC corrected for nucl RBC Auto (Bld) [#/Vol]5.9 E9/LNormal4.0 - 11.0 E9/LFC HemeAutoSSLMPon 63-95-0327Lqdv risk assessmenta) No falls within the last onqwPN-GHTYO-Ruwpfm 320 Work Phone: Last menstrual period start dwfcbuurcdOT-SKCIR-Ofsyru 320 Work Phone: Tobacco use status CPHSb) UdDR-FHMKG-Qohjmf 320 Work Phone: OB/SUPER[employer] - Office Visiton 27-79-2502DM/SUPER[employer] - Office VisitDiagnoses/Problems Assessed Endometriosis (617.9) (N80.9) Orders Start: Orilissa 200 MG Oral Tablet; take 1 tablet by mouth twice a day Provider Impressions 26 yo 1. endometriosis: discussed options continue norethindrone rx'd orilissa 200 mg bid rtc in 3 months Chief Complaint patient here to discuss pain related to endometriosis, declined barge hand. 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 History of Present Qsebzbr85 yo presents as a follow up for [...] again engaged x 1 year working at [employer] Review of Systems Constitutional: no fever, no [...] hours Vitals Vital Signs Recorded: 09Feb2022 11:41AM Ezgeahuq280 Euudurppa00 Height5 ft 2 in Hnzwev470 lb BMI Xznarpaxue89.51 kg/m2 BSA Calculated1.61 Tobacco Useb) No Fall [...] NormalUH TouchworksXR KNEE LEFT (MIN 4 VIEWS)on 12-69-0782GT KNEE LEFT (MIN 4 VIEWS)EXAM: XR KNEE [...] Joe Lopez MD 09/29/21 Final resultNormalMercy Marcin Cedar City HospitalOB/SUPERVISOR [employer]LET [employer] - Office Visiton 86-12-4510RP/SUPER[employer] - Office VisitDiagnoses/Problems Assessed Anxiety (300.00) (F41.9) Orders Start: FLUoxetine HCl - 20 MG Oral Capsule; TAKE 1 CAPSULE Daily Provider Impressions 26 yo 1. endometriosis - discussed treatment options rx'd Prozac for mood rx'd norethindrone rtc in 3 months Chief Complaint patient to follow up on medication from last visit in march 2021, declined barge hand. 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 History of Present Ywipvgu89 yo with endometriosis was on norethindrone d/c'd [...] Every 6 hours Vitals Vital Signs Recorded: 33Klw1336 01:19PM Ytpevocv244 Pcgkbanpw10 Height5 ft 2 in Odvmwp224 lb BMI Bpgjvactjf27.58 kg/m2 BSA Calculated1.53 Tobacco Useb) No Fall Screeninga) No falls within the last year EGH96Nao6886 Pain Scale0 Signatures Electronically signed by : Charlene Rodriguez DO; Jun 03 2021 10:55AM EST (Author) NormalUH TouchworksChlamydia sp identified Org specific cx Nom (Genital specimen)Ordered By: Jackelyn Dela Cruz on 20-30-9558Dcmgatos Chlamydia Screen NegativeNegativeSumak HealthHBV surface Ag IA Qlon 00-83-3920Abuzfzcu Hepatitis B Surface AgNegativeNegative, None DetectedSumma HealthHIV 1+2 Ab and HIV1 p24 Ag IA.rapid Nom (S/P/Bld)on 52-69-6715EKG-1/HIV-2 AbNegativeSumma HealthNo Panel Informationon 80-20-6246Gfralflk Gonorrhea ScreenNegativeNegativeSumma Health External Rubella IGG QuantitationPositiveSumma HealthSumma HealthNo Panel InformationOrdered By: Jackelyn Dela Cruz on 24-70-6795Param HealthReagin Ab RPR Ql (S)on 65-36-8519Uzksirob RPRNon-ReactiveBorderline, Nonreactive, Weakly Reactive, EquivocalSumma HealthOB/SUPERVISOR [employer]LET [employer] - Office Visiton 92-85-6299IA/SUPER[employer]OR [employer] - Office VisitDiagnoses/Problems Assessed Endometriosis (617.9) (N80.9) Never smoker Orders Stop: Norethindrone Acetate 5 MG Oral Tablet Tobacco Use Screening; Status:Complete; Done: 94Rwr0317 Provider Impressions 26 yo 1. endometriosis: rx'd norethindrone referral to pelvic floor PT rtc in 3-6 months if continues to have pain, will consider centrally acting neuromodulator Chief Complaint Patient presents today for f/u for endometriosis PAP per patient 2019 WNL President Ceo [employer] Founder declined -CATY,LAYAWAY CLERK LMP 04/11/21 History of Present Uaneavr32 yo with endometriosis bleeding once per month, [...] 20 2021 11:04AM EST (Author) [facility] TouchworksTobacco Screening.on 71-68-6284Hiyr risk assessmenta) No falls within the last apnpSB-TELDI-Mvpmds 320 Work Phone: Lase menstrual period start afqg06Ztp5158 PM-APNGZ-Kvjidw 320 Work Phone: Tobacco Screening.b) LiWK-GNHXH-Ikbfxp 320 Work Phone: Radiologyon 65-36-4137CW Kidney - bilateralNormal OX-Eudryzr-Nfiegvugy Work Phone: us RENAL BILATon 48-42-1918MK RENAL BILATMRN: [id number] Patient Name: JUHI COPE STUDY: US RENAL BILAT; 04/14/2021 1:14 pm INDICATION: Recurrent UTI. COMPARISON: None. ACCESSION NUMBER(S): [id number] ORDERING CLINICIAN: TERI CHAU TECHNIQUE: Multiple images [...] ultrasound. Electronically signed by: GENEVIEVE CAR STUPIN, MDCrozer-Chester Medical [facility] Office Visit (Urology)on 93-76-8287Cntctj-up visitDiagnoses/Problems Assessed Recurrent UTI (599.0) (N39.0) Orders Recurrent UTI Start: Nitrofurantoin Monohyd Macro 100 MG Oral Capsule; TAKE 1 CAPSULE Other Please take one capsule after sexual intercourse to prevent UTI Rx By: Teri Chau; Dispense: 30 Days ; #:30 Capsule; Refill: 11;For: Recurrent UTI; ROSY = N; Verified Transmission to [facility] Kid[facility] Bilateral; Status:Hold For - Scheduling; Requested for:85Rqi4472; Perform:[facility]; Due:25Txe0754; Last Updated By:Isela Terrazas; 04/01/2021 9:16:17 AM;Ordered; [...] UTI; ROSY = N; [place] [address] Provider Impressions 26 year old female with [...] Dr. Booth at [facility] in [place], noting she was only treated with medications and urethral dilation for a supposed stricture.Denies gross hematuria. Patient is a non-smoker. Urine culture from [facility] on 03/04/21 was positive for E. coli, [...] NPV - recurrent UTI History of Present Iyqklej89 year old female with history of endometriosis [...] Dr. Booth at [facility] in [place], noting she was only treated with medications [...] content not included)...NormalUH TouchworksNM GASTRIC EMPTYING SOLIDon 03-81-2077NR GASTRIC EMPTYING SOLID* * *Final Report* * * DATE OF EXAM: Nov 05 2020 12:26PM [facility] 0017 - NM GASTRIC EMPTYING SOLID / [...] 4 HOURS IS CONSISTENT WITH MILD GASTROPARESIS. Supervisor Roving Department: PSCB Transcribe Date/Time: Nov 05 2020 1:09P Dictated by : SIDDHARTH PEREA MD This examination was interpreted and the report reviewed and electronically signed by: SIDDHARTH PEREA MD on Nov 05 2020 1:24PM EST [id number]_[id number] Ford HospitalANES POSTPROC EVALon 20-27-2032YZBC POSTPROC EVALHNO ID: [id number] Author: Austin Story Service: ? Author Type: [...] October 25, 2020 TIME: 2:52 PM CSN: [id number] HospitalANES PRE-OPon 10-65-2866OUZI PRE-OPHNO ID: [id number] Author: Austin Story Service: ? Author Type: [...] October 25, 2020 TIME: 1:08 PM CSN: [id number] [facility] PATHOLOGYon 10-25-2020 SURGICAL PATHOLOGYSpecimen originated from [facility] Specimen #: [id number] Submitting Physician: MALCOLM CRUZ MD FINAL DIAGNOSIS 1. Small bowel, biopsy (A) - Small bowel mucosa with no pathologic diagnostic abnormality; negative for celiac disease, granulomas and dysplasia. 2. Stomach, biopsy (B) - Gastric oxyntic-type mucosa with no pathologic diagnostic abnormality; see comment. /[facility] 10/26/2020 COMMENT 2. No microorganisms morphologically compatible [...] one cassette. Gross examination performed at [facility], [address] [place] [address] 10/25/2020 7:59:40 PM Date of Report: 10/26/2020 Date of Procedure: 10/25/2020 Date of Receipt: 10/25/2020 Submitted by: MALCOLM CRUZ MD Location: AV[facility] Diagnostic interpretation performed at [facility], [address] [place] [address]. [place] Number: [id number] Clinic Reference LabComment on above:Performed By: #### S #### See report for performing lab information.SURGICAL PATHOLOGYSpecimen originated from [facility] Specimen #: [id number] Submitting Physician: MALCOLM CRUZ MD FINAL DIAGNOSIS 1. Small bowel, biopsy (A) - Small bowel mucosa with no pathologic diagnostic abnormality; negative for celiac disease, granulomas and dysplasia. 2. Stomach, biopsy (B) - Gastric oxyntic-type mucosa with no pathologic diagnostic abnormality; see comment. /[facility] 10/26/2020 COMMENT 2. No microorganisms morphologically compatible [...] one cassette. Gross examination performed at [facility], [address] [place] [address] EJL 10/25/2020 7:59:40 PM Date of Report: 10/26/2020 Date of Procedure: 10/25/2020 Date of Receipt: 10/25/2020 Submitted by: MALCOLM CRUZ MD Location: [facility] Diagnostic interpretation performed at [facility], [address] [place] [address]. [place] Number: [id number] Hill Rehabilitation Center/ GROUP TESTon 78-11-5473VLT Stafford District HospitalComment on above: Performed By: #### VERAB #### [facility] [address] [place], [place] [address]LR TYPEPositiveOur Lady of the Sea HospitalComment on above: Performed By: #### VERAB #### [facility] [address] [place], [place] [address]Ytsga Surgical Pathology Departmenton 42-69-4592Bbabd Surgical Pathology DepartmentName JUHI COPE Pathologist: ASHLEY [...] D. Right pelvic sidewall peritoneum are 2 ekux-rkq-guw, irregular fragments of tissue measuring 1.3 x [...] in toto in one cassette. SB amisha/09/02/2020 [facility] Department of Pathology [address] [place], [place] [address]QuvyrkVZAsheville Specialty HospitalComment on above:Performed By: #### [facility] #### [facility] Surgical Pathology Department [address] [facility] [address]Fwmodoy and Physical - Surgery > 30 dayson 64-75-1632Mjhrveu and Physical - Surgery > 30 daysHistory [...] T&S: O+, COVID-19: negative OB Hx: None. Entry Level Marketing Representative Hx: As above. PMHx: endometriosis Surg Hx: diagnostic laparoscopy, appendectomy (2016) Meds: Meloxicam, [place]-Linyah, Norethindrone acetate Social Hx: No tobacco, no [...] the note. I personally evaluated the patient uc48-Yid-8170 Attending Provider Inpatient Certification StatementObservation patient/other outpatient [...] 10:04 by Charlene Rodriguez ()[facility] the Sea HospitalHomegoing Instructionson 96-73-5699Ahwocccsw InstructionsAdditional Instructions: Handouts Given: Topic 1Anesthesia Homegoing Instructions Topic 2Surgical Site Infection Handout Topic 3New Medication Education Topic 4Suggamedex handout Electronic Signatures: Aminata Gomez (DIALLO) (Signed 01-Sep-2020 16:07) Authored: Additional Instructions Last Updated: 01-Sep-2020 16:07 by Aminata Gomez (DIALLO)[facility] of the Sea HospitalPatient Profile - Preop v2on 02-65-4809Asgyylg Profile - Preop h5Foytjtb: Initial Info: How to be Addressedalexis Spoken Language PreferredEnglish Are you currently using the Personal Electronic Health Record or [employer] Stated Reason for Admissionseeing if my endometriosis is back Primary Contact Name and Numberlogan [phone] Patient Belongingsclothing locker glasses with bf Medications Brought to Hospitalno General Health: Weight in kg55.6 kilogram(s) Weight in lzs635.5 pound(s) Weight Methodactual (measured) Scale Typestanding Height [...] Arrangementshouse Lives Withparent(s) Resource/Environmental Concernsnone Anticipated Transition [employer] Anticipated at Transitionnone Substance: Current or [...] Learning Preferencesverbal instruction Cultural Considerationsnone Developmental Considerationsnone Denominational Considerationsnone Other learner availableno Falls RiskPatient location auto qualifies him/her for HIGH RISK. Are there any cultural, spiritual, buddhism practices/values/needs that are important for us to [...] > 30 days 01-Sep-2020 03:42Our Lady of the Sea HospitalPreop Checkliston 73-67-7237Qrdoa Checklist Preop Checklist: Preop Checklist: Arrival Msew55-Flu-1202 Arrival Time12:30 Procedure Typelaparoscopic endometriosis excision NPO Tbmltx80-Fez-7114 00:00 ID Band Onyes Allergy Bandno known [...] 12:35 by Sierra Kraft (RN)[facility] the Sea HospitalANTIBODY IDENT.on 63-20-6070RGTOJTFG IDENT.SEE BELOWNormAsheville Specialty HospitalComment on above:Result Comment: NO CLINICALLY SIGNIFICANT ANTIBODIES IDENTIFIED.Performed By: #### ABID #### [facility] [address] [place], [place] [address]XUZbj 23-69-5321Gkmfzomhlto distribution width (RBC) [Ratio] 12.1 %Brolfq11.5 - 14.5Hackettstown Medical CenterComment on above:Performed By: #### CBC #### [facility] [address] [place], [place] [id number] (Bld) [Volume fraction]39.6 %Wkapcn13.0 - 46.0Hackettstown Medical CenterComment on above:Performed By: #### CBC #### [facility] [address] [place], [place] [id number] (Bld) [Mass/Vol]12.6 g/lIJfwvqm65.0 - 16.0Hackettstown Medical CenterComment on above:Performed By: #### CBC #### [address] [id number] (RBC) [Mass/Vol]31.8 g/dLLow32.0 - 36.0Hackettstown Medical CenterComment on above:Performed By: #### CBC #### [address] [id number] (RBC) [Entitic vol]90 hHQsvjqh16 - 100Hackettstown Medical CenterComment on above:Performed By: #### CBC #### [address] [id number] (Bld) [#/Vol]333 10*3/bAKawuqi114 - 450Hackettstown Medical CenterComment on above:Performed By: #### CBC #### [address] [id number] x10E12/LNormal4.00 - 5.20[facility] Comment on above:Performed By: #### CBC #### [address] [id number] (Bld) [#/Vol]5.6 10*3/uLNormal4.4 - 11.3Hackettstown Medical CenterComment on above:Performed By: #### CBC #### [address] [id number] 2019, SCREEN ASYMPTOMATICon 11-09-2417HXNI-CoV-2 (COVID-19) RNA TENA+probe Ql (Unsp spec)Not detectedNormalNot DetectedHackettstown Medical CenterComment on above:Result Comment: This assay [...] patient management decisions. Fact sheet for providers: https://www.fda.gov/media/582546/download Fact sheet for patients: https://www.fda.gov/media/707564/download This test has received FDA Emergency Use Authorization (EUA) and has been verified by [facility] ([facility]). This test is only authorized for the duration of time that circumstances exist to justify the authorization of the emergency use of in vitro diagnostic tests for the detection of SARS-CoV-2 virus and/or diagnosis of COVID-19 infection under section 564(b)(1) of the Act, 21 U.S.C. 360bbb-3(b)(1), unless the authorization is terminated or revoked sooner. [facility] is certified under CLIA-88 as qualified to perform high complexity testing. Testing is performed in the [facility] laboratories located at [address] [place] [address].Performed By: #### COVSC #### [place], [place] [address]Lab Specimen SourceNasal, NasopharyngealNoNorthern Colorado Long Term Acute HospitalComment on above:Performed By: #### COVSC #### [place], [place] [address]TYPE + SCREENon 79-34-9906PIY TUSCARAWAS HOSPITALONoNovant Health Rehabilitation HospitalComment on above:Performed By: #### T+S #### [facility] [address] [place], [place] [address]XW TYPEPositiveOur Lady of the Sea HospitalComment on above: Performed By: #### T+S #### [facility] [address] [place], [place] [address]AIN TYPECanceledSwift County Benson Health ServicesComment on above:Order Comment: TEST TYPE + SCREEN WAS CANCELLED, 08/30/2020 13:37 JOP. Performed By: #### T+S #### [facility] [address] [place], [place] [address]BZ TYPECanceledNormEating Recovery Center a Behavioral HospitalComment on above:Order Comment: TEST TYPE + SCREEN WAS CANCELLED, 08/30/2020 13:37 JOP. Performed By: #### T+S #### [facility] [address] [place], [place] [address]EWGRwn 54-88-0379FXAMZztvory:Juhi Cope MRN: Height:5' 2 (1.575 m) Weight:120 [...] for the following basenames: K,HCT Progress Notes ([facility] REJ AV4): Jaquelin Wesley Ma 10/19/2020 [...] cooked potatoes; Special K, Rice Krispies or [place] Flakes cereals; ripe bananas; melons (except watermelon [...] carbonated beverages such as chi aislinn or lemon-selawik soda; Gatorade? or other sports drinks (not [...] make sure you have a responsible adult inventory associate and driver to take you home after procedure. Due to having sedation, you may not drive the rest of the day. ? If you need to reschedule, please call [phone] ?Date/Provider Dr Cruz Procedure:colonoscpy Facility:[employer] Prep ordered( if aware):miralax Knowledge of prep instructions:posted to InComm Diabetic:no Blood Thinners:no Pacemaker with defibrillator:no left message for patient to return call. Nurse triage please give below message. PLEASE READ PATIENT INSTRUCTIONS BELOW. THANK YOU.[facility] on [id number] ID: [id number] Author: Leon Perkins (Rt) Fito Blanchard Service: Radiology Author Type: Slot Service Specialist Type: Progress Notes Filed: 07/29/2020 11:06 [...] BY: RT Daya July 29, 2020 11:01 The Medical CenterXR ABD 2V SUPINE W UPR/DECUB/CTLon 46-32-3031UR ABD 2V SUPINE W UPR/DECUB/CTL* * *Final [...] structures are normal. No other significant abnormality. Supervisor Roving Department: DAVID Transcribe Date/Time: Jul 29 2020 11:19A Dictated by : LALI ORNELAS MD This examination was interpreted and the report reviewed and electronically signed by: LALI ORNELAS MD on Jul 29 2020 11:19AM EST [id number] Vital Signs Date TimeVital SignValuePerforming PpzgjeroiGcscxrux89-83-0797 15:04-0500Body mass index (BMI) [Ratio]30.36 kg/m7Axaus Kiesha DO Work Phone: [phone] [place], [place] [address]Agophfvwmk90-33-0477 15:04-0500Body zepibj51.3 kg Nathan Kiesha DO Work Phone: [phone] [address]-05-2025 15:04-0500Diastolic blood imelidts89 mm[Hg]Nathan Kiesha DO Work Phone: 1(213)779-[address] [place], [place] [address]Xqopghbwja63-26-1454 15:04-0500Systolic blood qfhvknue897 mm[Hg]Nathan Ikesha DO Work Phone: [phone] [place], [place] 4124010-22-2025 16:04-0400Body mass index (BMI) [Ratio]29.78 kg/c3Cncbd Kiesha DO Work Phone: [phone] [place], [place] [address]Ivuzxftrev71-59-5237 16:04-0400Body cimlbp21.85 kgCorey Kiesha DO Work Phone: [phone])[facility] [place], [place] [address]Zbpybhhwqh01-14-2531 16:04-0400Diastolic blood uziuyivs69 mm[Hg]Nathan Kiesha DO Work Phone: [phone])[facility] [place], [place] [address]Wgdtapomar59-57-5476 16:04-0400Systolic blood ewsjkpzn120 mm[Hg]Nathan Kiesha DO Work Phone: [phone] [address]-16-2025 10:34-0400Body mass index (BMI) [Ratio]29.26 kg/u8GacywvqnMadhuri Monroy MD Work Phone: [facility]-16-2025 10:34-0400Body znarid87.58 kgMadhuri Monroy MD Work Phone: 1(838)005-[address] [place], [place] 7695110-16-2025 10:34-0400Diastolic blood mm[Hg]Madhuri Monroy MD Work Phone: 1(419)[address] [place], [place] 6414510-16-2025 10:34-0400Systolic blood dkbphpoc585 mm[Hg]Madhuri Monroy MD Work Phone: [phone] [place], [place] 6414510-10-2025 14:48-0400Body isdvds939.5 cmMine Denise MD Work Phone: [phone] [place], [place] 6414510-10-2025 14:48-0400Body mass index (BMI) [Ratio]29.04 kg/v5CppsvuMine Denise MD Work Phone: 1(419)[address] [place], [place] 6414510-10-2025 14:48-0400Body atwjvu87.03 kgMine Denise MD Work Phone: [phone])[address] [place], [place] 6414510-10-2025 14:48-0400Diastolic blood mm[Hg]Mine Denise MD Work Phone: [phone] [place], [place] 6414510-10-2025 14:48-0400Heart rate 104 /minMine Denise MD Work Phone: [phone] [place], [place] 6414510-10-2025 14:48-0400Systolic blood nrkbbqay781 mm[Hg]Mine Denise MD Work Phone: [phone] [place], [place] 6414510-09-2025 15:54-0400Body mass index (BMI) [Ratio]29.41 kg/o3OxuxcldkSteph Keane SENIOR DATA DEVELOPER Work Phone: [phone] [place], [place] [address]Alaecqbwwx08-56-4005 15:54-0400Body vvvhwy42.94 kgSteph Keane SENIOR DATA DEVELOPER Work Phone: [phone] HospitalIiabdgfkwy17-56-3037 15:54-0400Diastolic blood jzvxthah53 mm[Hg]Steph Keane SENIOR DATA DEVELOPER Work Phone: [phone]-[facility] HospitalZnbrrpirol25-41-9572 15:54-0400Systolic blood ainixaun230 mm[Hg]Steph Keane SENIOR DATA DEVELOPER Work Phone: [facility] HospitalOnahhoenng97-33-8981 15:37-0400Body mass index (BMI) [Ratio]29.23 kg/w5RahlfyadSteph Keane SENIOR DATA DEVELOPER Work Phone: [facility] HospitalNpnemlipwj64-64-4959 15:37-0400Body yvlfux26.48 kgSteph Rickettserly SENIOR DATA DEVELOPER Work Phone: [facility] HospitalJxwcgvubpm87-88-8421 15:37-0400Diastolic blood plkewxqv91 mm[Hg]Steph Keane SENIOR DATA DEVELOPER Work Phone: [facility] HospitalRwhfvmyxgr60-39-6455 15:37-0400Systolic blood bfcsedle502 mm[Hg]Steph Rickettserly SENIOR DATA DEVELOPER Work Phone: [facility] HospitalMxjstwoszl80-05-1319 15:55-0400Body mass index (BMI) [Ratio]29.45 kg/g7TvpjgqTeena Sarmiento RN Work Phone: 1(135)264-[address] [place], [place] 7695109-29-2025 15:55-0400Body mlagrj10.03 kgTeena Sarmiento RN Work Phone: [phone])428-[address] [place], [place] 7221009-17-2025 14:32-0400Body mass index (BMI) [Ratio]27.82 kg/m9Eirrf Kiesha DO Work Phone: [facility] HospitalSuelsjrvfe26-79-9637 14:32-0400Body oocssf46 kg Nathan Kiesha DO Work Phone: [facility] HospitalXwjcqkoirn71-14-7489 14:32-0400Diastolic blood qixgqqkf04 mm[Hg]Nathan Kiesha DO Work Phone: [place] [address]Jybrcdncbj43-22-9629 14:32-0400Systolic blood mvxuaoqw931 mm[Hg]Nathan Kiesha DO Work Phone: [facility] HospitalQxlrtuvczv81-78-6509 15:36-0400Body hkuroj267.5 cmGeorge Kageovanian DO Work Phone: NOCrossroads [facility] Medical CenterPfltdspqsd40-04-5747 15:36-0400Body mass index (BMI) [Ratio]27.62 kg/z0Dawsyhsherita Beltran DO Work Phone: WPCrossroads Regional Medical CenterZksmxeetuw90-03-7471 15:36-0400Body temperature 97.11 [degF]Eliceo Beltran DO Work Phone: NOCrossroads [facility] Medical CenterPngwmjtmgc44-00-0751 15:36-0400Body sjdymt61.49 kgGeorsherita Beltran DO Work Phone: DYCrossroads [facility] Medical CenterZalkrsoqlh81-59-4690 15:36-0400Diastolic blood ovntvhqj72 mm[Hg]Eliceo Beltran DO Work Phone: YBCrossroads Regional Medical CenterSlhjyvhrtv07-90-4108 15:36-0400Heart rate97 /min Eliceo Beltran DO Work Phone: [facility] HospitalWoflqvjaar93-74-5609 15:36-4462JdZ1% (BldA) [Mass fraction]98 %Eliceo Beltran DO Work Phone: GACrossroads Regional Medical CenterKsarcvchjw04-23-6483 15:36-0400Systolic blood kbfgcroh776 mm[Hg]Eliceo Beltran DO Work Phone: [facility] HospitalFoysuzwedj25-76-7917 15:42-0400Body mass index (BMI) [Ratio]26.48 kg/z8Sucgp Fazio DO Work Phone: [facility] HospitalQgsmiwsfna55-08-0740 15:42-0400Body yiaopq03.68 kgCorepearl Cabrerao DO Work Phone: [facility] HospitalOsmjplqpap31-16-2197 15:42-0400Diastolic blood mm[Hg]Nathan Cabrerao DO Work Phone: [facility] HospitalSyglbkgsiz72-67-1381 15:42-0400Systolic blood cesszvpu986 mm[Hg]Nathanpearl Cabrerao DO Work Phone: [facility] HospitalJreuytaboe67-67-1794 14:33-0400Body mass index (BMI) [Ratio]26.73 kg/m2Qgshi Kiesha DO Work Phone: [facility] HospitalEwsbnykpxy34-54-6574 14:33-0400Body aveisn99.28 kgCorey Kiesha DO Work Phone: [facility] HospitalUggvpbykld62-49-6036 14:33-0400Diastolic blood wvelowwi15 mm[Hg]Nathan Kiesha DO Work Phone: 1(294)285-[address] [place], [place] [address]Tnumygmrtq78-08-5522 14:33-0400Systolic blood rlufjcux763 mm[Hg]Nathan Kiesha DO Work Phone: 1(032)986-[address] [place], [place] [address]Cbxsrmgchg34-40-0336 14:45-0400Body mass index (BMI) [Ratio]25.24 kg/r0Srxsp Kiesha DO Work Phone: 1(412)186-[address] [place], [place] [address]Homhjhamtl84-72-1500 14:45-0400Body paafri50.6 kg Nathan Kiesha DO Work Phone: 1(406)520-[address] [place], [place] [address]Mgnawssddz59-83-3778 14:45-0400Diastolic blood wyrkcbze99 mm[Hg]Nathan Kiesha DO Work Phone: 1(579)524-[address] [place], [place] [address]Frdpygbyls81-73-9130 14:45-0400Systolic blood spuprxoy984 mm[Hg]Nathan Kiesha DO Work Phone: [phone] [place], [place] [address]Iaaqbcyxkk31-45-9360 10:29-0400Body mass index (BMI) [Ratio]25.68 kg/m2[facility]06-06-2025 10:29-0400Body .69 kgCap[facility] Region Medical Center02-24-2025 15:08-0500Body mass index (BMI) [Ratio]25.99 kg/p7Ewygn Kiesha DO Work Phone: 1(762)900-[address] [place], [place] [address]Hzpsphviyx80-69-9926 15:08-0500Body dnjjeo39.47 kgCorey Kiesha DO Work Phone: 1(694)567-[address] [place], [place] [address]Azdkolniak41-95-8975 15:08-0500Diastolic blood cbqpihbg75 mm[Hg]Nathan Kiesha DO Work Phone: 1(903)655-[address] [place], [place] [address]Yvalmlxwgf23-35-8231 15:08-0500Systolic blood auaqwwld824 mm[Hg]Nathan Kiesha DO Work Phone: 1(347)818-[address] [place], [place] [address]Wdggvpkhdx22-95-4187 15:53-0500Body .5 cmGemartha Beltran DO Work Phone: noCrossroads [facility] Medical CenterGckrenkdqt52-16-6432 15:53-0500Body mass index (BMI) [Ratio]25.61 kg/i3Llypfimartha Beltran DO Work Phone: noCrossroads [facility] CenterNppnjktdgj13-58-7630 15:53-0500Body temperature 97.11 [degF]Eliceo Beltran DO Work Phone: noCrossroads [facility] CenterOetbutpzno40-02-5213 15:53-0500Body dafukk93.5 kg Eliceo Beltran DO Work Phone: noCrossroads [facility] CenterUotcvcvugi61-88-5992 15:53-0500Diastolic blood odrtkfyw99 mm[Hg]Eliceo Beltran DO Work Phone: noCrossroads [facility] Medical CenterOsuzjqylxy62-11-2831 15:53-0500Heart rate51 /min Eliceo Beltran DO Work Phone: noCrossroads [facility] Medical CenterJevrypfhjq56-42-4377 15:53-0994DnY7% (BldA) [Mass fraction]98 %Eliceo Beltran DO Work Phone: noCrossroads [facility] Medical CenterNohewcnbwn02-40-2420 15:53-0500Systolic blood mm[Hg]Eliceo Beltran DO Work Phone: noCrossroads [facility] Medical CenterFemnnvgicw95-07-9669 11:15-0400Body mass index (BMI) [Ratio]25.97 kg/l4Sfjrq Fazio DO Work Phone: [facility] HospitalNmjtetujof27-54-7237 11:15-0400Body chszde44.41 kgNathan Pop DO Work Phone: NOCrossroads Regional Medical CenterRoefbfmthb58-44-5510 11:15-0400Diastolic blood yqdyzbdy59 mm[Hg]Nathan Pop DO Work Phone: [facility] HospitalJrvkjcxbey00-45-0111 11:15-0400Systolic blood mm[Hg]Nathan Pop DO Work Phone: noCrossroads Regional Medical CenterXrmgyzotwx31-46-2484 10:02-0400Body mass index (BMI) [Ratio]25.39 kg/q0Gytal Kiesha DO Work Phone: [phone])640-[address] [place], [place] [address]Shounxvwgc41-11-2393 10:02-0400Body uurktg48.96 kgCorey Kiesha DO Work Phone: 1(659)[facility] [place], [place] [address]Vmdqzsmrxd25-21-7843 10:02-0400Diastolic blood ojxygicm52 mm[Hg]Nathan Kiesha DO Work Phone: 1([phone] [place], [place] [address]Kxqicjsiex41-06-4643 10:02-0400Systolic blood ywxaqmfh141 mm[Hg]Nathan Kiesha DO Work Phone: 1(638)[facility] [place], [place] [address]Jjtuhfxxvj58-15-4840 10:55-0500Body mass index (BMI) [Ratio]28.17 kg/n3Ryhyb Kiesha DO Work Phone: 1(028)[facility] [place], [place] [address]Hrwlwzpsdp35-53-0276 10:55-0500Body wlrsqo54.85 kgCorey Kiesha DO Work Phone: 1(293)[facility] [place], [place] [address]Mycrhkifhu47-22-6220 10:55-0500Diastolic blood hivkrmdf22 mm[Hg]Nathan Kiesha DO Work Phone: 1(827)[facility] [place], [place] [address]Bqnyyqthqs59-78-7386 10:55-0500Systolic blood ldlerrdi251 mm[Hg]Nathan Kiesha DO Work Phone: 1(301)[facility] [place], [place] [address]Mqosduxowt60-19-6140 17:31-0400Body temperature 98.96 [degF][facility]10-18-2023 17:31-0400 Diastolic blood dtttteov58 mm[Hg][facility]10-18-2023 17:31-6730ELJ0 99 %[facility]10-18-2023 17:31-0400Heart dovc820 /min[facility]10-18-2023 17:31-0400 Respiratory rate16 /min[facility]10-18-2023 17:31-0400 Systolic blood mm[Hg][facility]06-06-2023 10:55-0400Body engdnr782.5 cmErin Reaper COLLECTION MANAGER.CLINICAL SYSTEMS EDUCATOR Work Phone: [phone] Lawntr66-89-1539 10:55-0400Body ujmctu45.86 kgErin Reaper COLLECTION MANAGER.CLINICAL SYSTEMS EDUCATOR Work Phone: [phone] Illnqq04-32-0002 10:55-0400Diastolic blood cuhbzbhc55 mm[Hg]Jihan Reaper COLLECTION MANAGER.CLINICAL SYSTEMS EDUCATOR Work Phone: [phone] Zdxupd80-42-7472 10:55-0400Systolic blood tmaxomjv547 mm[Hg]Jihan Reaper COLLECTION MANAGER.CLINICAL SYSTEMS EDUCATOR Work Phone: [place] Tdgbkd75-26-1691 19:18-0500Diastolic blood ikmkigpv96 mm[Hg][facility]03-08-2023 19:18-0500Heart rate98 /minMount [facility] System03-08-2023 19:18-0500Nursing Progress Note ReasonOther: this RN discharged pt. pt verbalizes understanding and denies questiosn prior to discharge.[facility]03-08-2023 19:18-0500Respiratory rate16 /minMount [facility]03-08-2023 19:18-9808XuH6% (BldA) [Mass fraction]100 %[facility]03-08-2023 19:18-0500 Systolic blood cxotvaop571 mm[Hg][facility] 01-31-2023 18:00-0500Diastolic blood fotxstyo58 mm[Hg][facility]03-08-2023 18:00-0500Heart mngk802 /minMount [facility] System03-08-2023 18:00-0500Mean blood mm[Hg][facility]03-08-2023 18:00-7576CdZ8% (BldA) [Mass fraction]99 %[facility]03-08-2023 18:00-0500 Systolic blood kapztjnb321 mm[Hg][facility] 01-31-2023 17:00-0500Diastolic blood mm[Hg][facility]03-08-2023 17:00-0500Mean blood yloyuite089 mm[Hg][facility]03-08-2023 17:00-0500Systolic blood pressure 117 mm[Hg][facility]03-08-2023 16:38-0500Heart ltvq407 /minMount [facility] System03-08-2023 16:38-0500Mean blood mm[Hg][facility]03-08-2023 16:38-0500Respiratory rate18 /[facility] 01-31-2023 13:49-0500Body hcbkavzoxed86.88 [degF][facility]03-08-2023 13:49-0500Heart mstx696 /minMount [facility] System02-04-2023 14:55-0500Body fxazgvyzuxu05.88 [degF][facility]02-04-2023 14:55-0500Diastolic blood puwcposl29 mm[Hg][facility]02-04-2023 14:55-0500Heart rate84 /minMount [facility] System02-04-2023 14:55-0500Mean blood zlqzbsig689 mm[Hg][facility]02-04-2023 14:55-0500Respiratory rate20 /minMount [facility] System02-04-2023 14:55-3581UkX3% (BldA) [Mass fraction]98 %[facility]02-04-2023 14:55-0500Systolic blood pressure 137 mm[Hg][facility]02-04-2023 14:35-0500Body qzoruhjbefo81.88 [degF][facility]02-04-2023 14:35-0500Diastolic blood cgioxses55 mm[Hg][facility]02-04-2023 14:35-0500Heart rate82 /minMount [facility] System02-04-2023 14:35-0500Mean blood ubdoohpi65 mm[Hg][facility]02-04-2023 14:35-0500Respiratory rate16 /[facility]02-04-2023 14:35-0508OnD4% (BldA) [Mass fraction]97 %[facility]02-04-2023 14:35-0500Systolic blood ezommmav090 mm[Hg][facility]02-04-2023 13:35-0500Body bbtvsputihs20.88 [degF][facility]02-04-2023 13:35-0500Diastolic blood glagpcej70 mm[Hg][facility]02-04-2023 13:35-0500Heart rate80 /min[facility]02-04-2023 13:35-0500Mean blood jkwofqpu37 mm[Hg] [facility]02-04-2023 13:35-0500Respiratory rate 17 /minMount [facility] System02-04-2023 13:35-8894UhN4% (BldA) [Mass fraction]96 %[facility]02-04-2023 13:35-0500Systolic blood qvfwigke740 mm[Hg][facility]02-04-2023 13:00-0500Respiratory rate12 /minMount [facility] System02-04-2023 12:55-0500Respiratory rate9 /minMount [facility]02-04-2023 12:50-0500Respiratory rate10 /[facility]02-04-2023 08:15-0500Body qhkfnuhjzzs26.24 [degF] [facility]02-04-2023 08:15-0500Heart cqcz879 /minMount [facility]01-07-2023 13:41-0500Body ffjjohmygse94.2 [degF]Kathe Ryder DO Work Phone: 1(521)819-[address] [place], [place] [address]Pqynhh91-08-6969 13:41-0500Diastolic blood niuogkop14 mm[Hg]Kathe Ryder DO Work Phone: [facility] CenterXgosuy81-05-0270 13:41-0500Heart bjqz291 /min Kathe Ryder DO Work Phone: [phone] CenterWlfmxe31-18-1369 13:41-0500Respiratory rate18 /minKathe Ryder DO Work Phone: [facility] CenterZonvoh12-37-5458 13:41-7075CxA8% (BldA) [Mass fraction]99 %Kathe Ryder DO Work Phone: [facility] CenterYgvkom11-50-4944 13:41-0500Systolic blood fmxkaawj802 mm[Hg]Kathe Ryder DO Work Phone: [facility] CenterVaxhnj06-38-8060 00:45-0500Body voazyc684.5 cm Kathe Ryder DO Work Phone: [facility] CenterPhihzp38-99-0718 00:45-0500Body mass index (BMI) [Ratio]25.61 kg/t0QdpgbtgxuKathe Ryder DO Work Phone: [facility] CenterPxumir06-17-7307 00:45-0500Body nkesqq38.5 kg Kathe Ryder DO Work Phone: [facility] CenterElxhca70-74-1385 22:26-0500Hourly Rounding Fredi KARASIK [address] [place], [place] [address]Comment on above:Result Comment: ensured that all pt belongings are sent with pt. pt has no questions or concerns. report given to EMS. pt stable and no s/s of distress. pt off unit to czhpobra56-80-7033 22:00-0500Diastolic blood azwiofoi79 mm[Hg]Fredi KARASIK [address] [place], [place] 9352701-02-2023 22:00-0500Heart kawv700 /minGregory KARASIK [address] [place], [place] 9352701-02-2023 22:00-0500 Hourly RoundingGregory KARASIK [address] [place], [place] 9352701-02-2023 22:00-0500Mean blood wuacpjir848 mm[Hg]Fredi KARASIK [address] [place], [place] 9352701-02-2023 22:00-0500 Systolic blood mm[Hg]Fredi KARASIK [address] [place], [place] 9352701-02-2023 21:50-0500Blood Pressure LocationGregory KARASIK [address] [place], [place] 9352701-02-2023 21:50-0500 Diastolic blood qeqnsjkt05 mm[Hg]Fredi KARASIK [address] [place], [place] 9352701-02-2023 21:50-0500Heart cafu496 /minGregory KARASIK [address] [place], [place] 935[address]01-02-2023 21:50-0500 Hourly RoundingGregory KARASIK [facility]01-02-2023 21:50-0500Mean blood mm[Hg]Fredi SCHUMACHERASIK [address] [place], [place] 935[address]01-02-2023 21:50-0500 Respiratory rate18 /minFredi SCHUMACHERASIK [address] [place], [place] 935[address]01-02-2023 21:50-5757PcF5% (BldA) [Mass fraction]98 %Fredi SCHUMACHERASIK [address] [place], [place] 935[address]01-02-2023 21:50-0500 Systolic blood tcivdhsy162 mm[Hg]Fredi KARASIK [address] [place], [place] 9352701-02-2023 21:37-0500Blood Pressure LocationGregrosa ABREUK [address] [place], [place] 9352701-02-2023 21:37-0500 Diastolic blood hjgcqmea15 mm[Hg]Fredi SCHUMACHERASIK [address] [place], [place] 9352701-02-2023 21:37-0500Heart yzmi257 /minFredi ABREUK [address] [place], [place] 935[address]01-02-2023 21:37-0500Mean blood mm[Hg]Fredi SCHUMACHERASIK [address] [place], [place] 935[address]01-02-2023 21:37-3093OoP7% (BldA) [Mass fraction]97 %Fredi SCHUMACHERASIK [address] [place], [place] 935[address]01-02-2023 21:37-0500 Systolic blood dmroonme236 mm[Hg]Fredi KARASIK [address] [place], [place] 9352701-02-2023 21:30-0500Blood Pressure LocationFredi SCHUMACHERASIK [address] [place], [place] 935[address]01-02-2023 21:30-0500Body cmwebxciqzt26.6 [degF]Fredi DORSEY [facility]01-02-2023 19:00-0500Body mbyzbguadzm88.24 [degF]Fredi DORSEY [facility]01-02-2023 17:15-0500Body pqpebaxeopd48.06 [degF]Fredi DORSEY [facility]01-02-2023 14:02-0500Heart rate99 /minFredi DORSEY [facility]08-19-2022 07:00-0400Body fcadfmyynuw11.6 [degF]Kaylinn Dokken [address]08-19-2022 07:00-0400 Diastolic blood awonaljn39 mm[Hg]Kaylinn Dokken [address]08-19-2022 07:00-0400Heart rate80 /minKaylinn Dokken [address] [place], [place] 4240408-19-2022 07:00-0400Mean blood slqyxaoq60 mm[Hg]Kaylinn Dokken [address] [place], [place] 4240408-19-2022 07:00-0400 Respiratory rate17 /minKaylinn Dokken [address]08-19-2022 07:00-0400 Systolic blood xelzcrso955 mm[Hg]Kaylinn Dokken [address] [place], [place] 4240408-19-2022 06:07-0400Body zgcubhwffma19.24 [degF]Kaylinn Dokken [address]08-19-2022 06:07-0400 Diastolic blood yphbasqn49 mm[Hg]Kaylinn Dokken [address] [place], [place] 4240408-19-2022 06:07-0400Heart rate90 /minCharlotteylinn Dokken [address]08-19-2022 06:07-0400 Respiratory rate18 /minCharlotteylinn Dokken [address] [place], [place] 4240408-19-2022 06:07-9578CcR7% (BldA) [Mass fraction]100 %Kumar Villagomez [address]08-19-2022 06:07-0400 Systolic blood ececilmb221 mm[Hg]Beatrisn Yulyen [address] [place], [place] 4240408-19-2022 05:30-0400 Hourly RoundingCorey KIESHA [address] [place], [place] [address]Comment on above:Result Comment: Pt discharged per physician orders. Pt ambulates off unit with a steady jrjg52-45-3944 05:15-0400Diastolic blood mm[Hg]Nathan KIESHA [address] [place], [place] 9352708-19-2022 05:15-0400Heart mszh491 /minCorey KIESHA [address] [place], [place] 9352708-19-2022 05:15-0400 Hourly RoundingCorey KIESHA [address] [place], [place] 935[address]08-19-2022 05:15-0400Mean blood ngkzywyj61 mm[Hg]Nathan KIESHA [address] [place], [place] 9352708-19-2022 05:15-0400 Respiratory rate18 /minCorey KIESHA [address] [place], [place] [address]352708-19-2022 05:15-0400 Systolic blood tqkswbpy831 mm[Hg]Nathan KIESHA [address] [place], [place] [address]352705-24-2022 11:00-0400Body .02 cmCameron Edward Other [place] [facility] Other 05-24-2022 11:00-0400Body mass index (BMI) [Ratio] 23.03 kg/g8Gstbfkc amSTATZtty Other [facility] Other 05-24-2022 11:00-0400Body .97 kgCamerojunior Loratty Other [facility] Other 03-17-2022 11:41-0400Body txroxj908.48 cmMegan Billow DO Work Phone: [phone]-GCEWY[address] Work Phone: [phone] 11:41-0400Body mass index (BMI) [Ratio] 24.51 kg/y4Uxclb Billow DO Work Phone: XD-HFTZK-[address] Work Phone: [phone] 11:41-0400Body surface area Derived from formula1.61 m1Ywqbe Billow DO Work Phone: AX-CTWDS-[address] Work Phone: [phone] 11:41-0400Body idrior65.78 kgMegan Billow DO Work Phone: BB-LQZJB-[address] Work Phone: [phone] 11:41-0400Diastolic blood ycokyinn62 mm[Hg] Charlene Billow DO Work Phone: HV-TRWXR-[address] Work Phone: [phone] 11:41-0400Systolic blood zpczmjlo222 mm[Hg] Charlene Billow DO Work Phone: YY-ITBKB[facility] [address] Work Phone: [phone] 11:41-83685 1Megan Billow DO Work Phone: KI-HLMTP[facility] [address] Work Phone: Comment on above:SUVJITUOVfbuQjoyb67-52-9144 14:53-0400Body qufzew178.48 cmMegan Billow DO Work Phone: KF-DBFLE[facility] [address] Work Phone: [phone] 14:53-0400Body mass index (BMI) [Ratio] 21.77 kg/c4Rsaku Billow DO Work Phone: EP-EKHVG[facility] [address] Work Phone: [phone] 14:53-0400Body surface area Derived from formula1.53 b3Amvpe Billow DO Work Phone: WZ-IWIFL[facility] [address] Work Phone: [phone] 14:53-0400Body huporn71.98 kgMegan Billow DO Work Phone: WI-WHFXH[facility] [address] Work Phone: [phone] 14:53-0400Diastolic blood xyrlvzqh37 mm[Hg] Charlene Billow DO Work Phone: WN-XCOTN[facility] [address] Work Phone: [phone] 14:53-0400Heart xbii773 /minMegan Billow DO Work Phone: CW-QNLZI[facility] [address] Work Phone: [phone] 14:53-0400Systolic blood lwylvmqm703 mm[Hg] Charlene Billow DO Work Phone: LE-FHEXJ[facility] [address] Work Phone: [phone] 14:53-10687 1Megan Billow DO Work Phone: YG-XMUMU[facility] [address] Work Phone: Comment on above:GRAVPARAPainScale Encounters Encounter DateEncounter TypeCare ProviderFacilityStart: 10-06-2025 End: 27-75-6384Sdgque outpatient visit 25 minutesColleen E Matthias CLAYTON Work Phone: [phone]-Fetzz [facility] at [facility] Comment on above:Insulin controlled gestational diabetes mellitus (GDM) in third trimester (Primary Dx); Essential hypertension affecting in third trimesterStart: 10-06-2025 End: 91-59-2480fajvmfjthxAGDOZEO E MATTHIASProMedica Adena Pike Medical Centertart: 10-05-2025 End: 03-35-1583Kavckgexo encounterAnjana Davalos RNMaternal- Medicine at [facility]: 10-03-2025 End: 24-53-8551Jtqyaajoz Result EncounterSteph Keane NP Work Phone: noms External Department UnsolicitedStart: 10-03-2025 End: 72-64-4555Fotepvkir Result EncounterSteph Keane NP Work Phone: noms External Department UnsolicitedStart: 09-30-2025 End: 39-23-9842Ruyeugss flow sheetCorey Kiesha DO Work Phone: noms Patti OBGYNComment on above:Third trimester ([facility]); 31 weeks gestation of ([facility]); Pre-eclampsia in third trimester ([facility])Start: 09-30-2025 End: 93-28-7247qtjoasgobeSFWMT FAZIONot AvailableStart: 09-30-2025 End: 89-68-6703Trezka flowsheetCorey Kiesha DO Work Phone: noMS [place] OBGYNStart: 09-30-2025 End: 42-74-7075Tezfvg flowsheetCorey Kiesha DO Work Phone: [facility] Patti OBGYNStart: 09-28-2025 End: 60-81-2162Aiqzhz OnlyChivo Springer PA-C Work Phone: [phone]-Tixje Medicine at [facility] Comment on above:Essential hypertension affecting in third trimester Start: 09-26-2025 End: 75-93-4359Eypqvbons Result EncounterSteph Keane NP Work Phone: noms External Department UnsolicitedStart: 09-26-2025 End: 37-96-8188Ztaqnabiz Result EncounterSteph Keane NP Work Phone: noms External Department UnsolicitedStart: 09-21-2025 End: 76-83-3342vllyjjizcwBxfylnr E Lavoy PA-C Work Phone: [phone]-Jayzs Medicine at [facility] Comment on above:Insulin controlled gestational diabetes mellitus (GDM) in third trimester (Primary Dx); Essential hypertension affecting in third trimesterStart: 09-21-2025 End: 60-70-2283Qvdlanndl encounterVerito EDOUARD Work Phone: [phone]-Xhgpo Medicine at [facility] Start: 09-19-2025 End: 31-09-4042Chpbfzrts Result EncounterSteph Keane NP Work Phone: noms External Department UnsolicitedStart: 09-19-2025 End: 37-55-3054Qtruixvrq Result EncounterSteph Keane NP Work Phone: noms External Department UnsolicitedStart: 09-17-2025 End: 65-82-1747Qwzljq Breanna CAGE Work Phone: [phone]-Orjjp Medicine at [facility] Comment on above:Essential hypertension affecting in third trimester Start: 09-16-2025 End: 20-97-1581jlpvleydlxNIWXZ FAZIONot AvailableStart: 09-16-2025 End: 44-60-5778Tkqszqrd flow sheetCorey Kiesha DO Work Phone: noms Patti OBGYNComment on above:29 weeks gestation of ([facility]); Third trimester ([facility]); Hypertension affecting , antepartum ([facility]); Gestational diabetes mellitus (GDM), antepartum, gestational diabetes method of control unspecified([facility])Start: 09-16-2025 End: 72-07-7971Dtnfqy flowsheetCorey Kiesha DO Work Phone: [facility] Armstrong OBGYNStart: 09-16-2025 End: 19-72-7901Qocpay flowsheetCorey Kiesha DO Work Phone: [facility] Armstrong OBGYNStart: 09-16-2025 End: 84-76-1957Mrgpydoyw Nirmal Harris Maternal- [facility]: 09-15-2025 End: 97-57-9437DozlkkMika Springer PA-C Work Phone: [phone]-Jorgl Medicine at [facility] Comment on above:Essential hypertension affecting in third trimester Start: 09-10-2025 End: 28-45-5888Oixejg outpatient visit 25 minutesMadhuri Monroy MD Work Phone: [facility] [place]Comment on above: 28 weeks gestation of (Primary Dx); Insulin controlled gestational diabetes mellitus (GDM) in second trimester; Essential hypertension affecting in third trimesterStart: 09-10-2025 End: 70-27-2654jwshoemfwyHMNOWJZO P DOCHEVAOhioHealth [facility] Start: 09-04-2025 End: 48-05-1031Cdeqbt consultation new/estab patient 60 Annalee Denise MD Work Phone: [phone]-Oignk Medicine at [facility] Comment on above:Diet controlled gestational diabetes mellitus (GDM) in second trimester (Primary Dx); Essential hypertension affecting in third trimesterStart: 09-04-2025 End: 49-17-0257pdupnsgkgjTFNNSVNona McTr[facility] System West Campustart: 09-03-2025 End: 04-46-9467Cksfahyg flow sheetSteph Keane SENIOR DATA DEVELOPER Work Phone: NOAZ Patti OBGYNComment on above:Hypertension affecting , antepartum ([facility]) (Primary Dx); 27 weeks gestation of ([facility]-H[facility]); Second trimester ([facility])Start: 09-03-2025 End: 48-46-7233rueiqmyegtRECNJVXX EBERLYNot AvailableStart: 09-03-2025 End: 06-42-8996Unmtxr flowsheetSteph Keane SENIOR DATA DEVELOPER Work Phone: [facility] [place] OBGYNStart: 09-03-2025 End: 17-69-2256Kjeakcpui Result EncounterCorey Kiesha DO Work Phone: noms External Department UnsolicitedStart: 09-03-2025 End: 47-22-2187Fcmcuzloo Result EncounterCorey Kiesha DO Work Phone: noms External Department UnsolicitedStart: 09-01-2025 End: 80-67-0635Lchsyrjls encounterCha Harris RNMaternal- Medicine at [facility]: 08-29-2025 End: 53-85-8961Oplzhbdkq Result EncounterSteph Keane NP Work Phone: noms External Department UnsolicitedStart: 08-29-2025 End: 86-08-7848Sdiywmtjd Result EncounterSteph Keane NP Work Phone: noms External Department UnsolicitedStart: 08-27-2025 End: 36-17-8794kxbdsvbpgwFSXLGUUU EBERLYNot AvailableStart: 08-27-2025 End: 57-68-2663Lbbzclin flow sheetSteph Keane SENIOR DATA DEVELOPER Work Phone: NOMS Patti OBGYNComment on above:26 weeks gestation of ([facility]-HCC); Second trimester ([facility]HS-HCC); induced hypertension, antepartum (HHS-HCC); Gestational diabetes mellitus (GDM) in second trimester, gestational diabetes method of control unspecified ([facility]-HCC)Start: 08-27-2025 End: 28-63-8553Kleqrs flowsheetSteph Elsa SENIOR DATA DEVELOPER Work Phone: NOAA Patti OBGYNStart: 08-27-2025 End: 69-36-1706Fujuzh flowsheetSteph Keane SENIOR DATA DEVELOPER Work Phone: NOXY Patti OBGYNStart: 08-27-2025 End: 30-25-7040Cropiewow Result EncounterSteph Keane SENIOR DATA DEVELOPER Work Phone: noms External Department UnsolicitedStart: 08-25-2025 End: 30-36-0964Ekvlhkrxd Result EncounterGeneric External Data ProviderNOMS External Department UnsolicitedStart: 08-25-2025 End: 35-19-0344Dejqrhumb Result EncounterGeneric External Data ProviderNOMS External Department UnsolicitedStart: 08-24-2025 End: 01-61-0452qzxqjerskrZmofuh M Frey RN Work Phone: [phone]-Idlgb Medicine at [facility] Comment on above:Gestational diabetes mellitus (GDM) in second trimester, gestational diabetes method of control unspecifiedStart: 08-21-2025 End: 40-63-7658Waoke abstractingScanning Provider ExternalMaternal- Medicine at [facility]: 08-18-2025 End: 42-31-4189Gnuqy Aura Monroy MD Work Phone: [phone]-Fezxn Medicine at [facility] Start: 08-15-2025 End: 34-91-5010ceikcyihbcLOKHMQOG EBERLYFacility:FTMCStart: 08-12-2025 End: 36-59-5846Pklxcldl flow sheetCorey Kiesha DO Work Phone: noms [place] OBGYNComment on above:24 weeks gestation of ([facility]); Second trimester ([facility]); Elevated glucose tolerance testStart: 08-12-2025 End: 29-42-2028qtgkuwsfrsWBEBY FAZIONot AvailableStart: 08-12-2025 End: 98-54-2456iflmmwugayFpawe Bryant MANISHAOFacility:FTMCStart: 08-01-2025 End: 78-01-4855cdphmshragL KENNETH BELTRANFacility:FTMCStart: 07-30-2025 End: 33-84-5652Egbxirp encounter statusGemartha Hurtado Ruby DO Work Phone: [facility] Work Phone: Start: 07-30-2025 End: 03-22-3902Iwqaxtmn preventive med est patient 18-39 yrsGeorsherita Hurtado Charlottecarol DO Work Phone: noms [facility] 230Comment on above: Wellness examination (Primary Dx); Hypertension, unspecified type ; Lipid screeningStart: 07-30-2025 End: 42-85-6668unhmiteibrFVFOCD R KAFTANNot AvailableStart: 07-30-2025 End: 11-96-1737Jaktta flowsheetEliceo Hurtado Ruby DO Work Phone: noms [facility] 230Start: 07-30-2025 End: 41-51-6593Qxreqt flowsreynoldEliceo Hurtado Ruby DO Work Phone: noms [facility] 230Start: 07-15-2025 End: 22-61-7081Ztjgnxai flow sheetCorey Kiesha DO Work Phone: NOWS [place] OBGYNComment on above:20 weeks gestation of ([facility]); Second trimester ([facility]); Diabetes mellitus screeningStart: 07-15-2025 End: 27-91-9865ptncpouzpbHNFVK FAZIONot AvailableStart: 07-15-2025 End: 25-94-0491Jzkwhvvqk Result EncounterCorey Kiesha DO Work Phone: NODD External Department UnsolicitedStart: 07-15-2025 End: 10-09-5104Hzgrnpjkk Result EncounterCorey Kiesha DO Work Phone: NOMS External Department UnsolicitedStart: 06-22-2025 End: 65-17-9446Ovokmqtq flow sheetCorey Kiesha DO Work Phone: NOAU [place] OBGYNComment on above:Sinusitis, unspecified chronicity, unspecified location (Primary Dx); Second trimester ([facility]); 17 weeks gestation of ([facility]); Screening, , for anatomic survey ([facility])Start: 06-22-2025 End: 77-85-7495bqheaaxhfeDRTHR FAZIONot AvailableStart: 06-22-2025 End: 34-47-1734Lkinfw flowsheetCorey Kiesha DO Work Phone: NOBJ [place] OBGYNStart: 06-22-2025 End: 15-35-2876Utycyw flowsheetCorey Kiesha DO Work Phone: NOFO Patti OBGYNStart: 06-22-2025 End: 87-89-4472Sfzhxref Result EncounterCorey Kiesha DO Work Phone: NORR External Department UnsolicitedStart: 05-25-2025 End: 43-50-5392mjookofyehGSJXF FAZIONot AvailableStart: 05-25-2025 End: 55-20-7744Bnnrhvep flow sheetCorey Kiesha DO Work Phone: NOID BCP OBComment on above:Nonintractable episodic headache, unspecified headache type (Primary Dx); Second trimester ([facility]); 13 weeks gestation of ([facility])Start: 05-25-2025 End: 01-83-5798Vgzlut flowsheetCorey Kiesha DO Work Phone: NOMS BCP OBStart: 05-25-2025 End: 64-68-7824Wzvjpr flowsheetCorey Kiesha DO Work Phone: NOMS BCP OBStart: 05-04-2025 End: 18-65-8207Kqigqfkkp Result EncounterCorey Kiesha DO Work Phone: NOMS External Department UnsolicitedStart: 05-04-2025 End: 89-47-7766Dvnqtvanc Result EncounterCorey Kiesha DO Work Phone: noms External Department UnsolicitedStart: 05-01-2025 End: 87-99-3396Rjfktimrm Result EncounterCorey Kiesha DO Work Phone: noMS External Department UnsolicitedStart: 05-01-2025 End: 45-16-4282Mskgnxylx Result EncounterCorey Kiesha DO Work Phone: noms External Department UnsolicitedStart: 05-01-2025 End: 10-15-3146zbldyqpalyQYDMER Jose Angel AvailableStart: 05-01-2025 End: 33-65-0312Gpfjys outpatient visit 5 minutesNoms Bcp Ob Kiesha NurseNOMS BCP OBComment on above:GA: 5n9lSahii: 03-13-2025 End: 57-95-7449xzwckwdefnTqzzs R FAZIOFacility:FTMCStart: 03-13-2025 End: 10-37-0068Uycdkno encounter procedureCorey R KIESHA [facility] Start: 02-02-2025 End: 18-82-8226Jgphrpq encounter procedureDenny Rodríguez MD Work Phone: [facility] [place] Work Phone: Start: 02-02-2025 End: 76-55-9227qhgjsohtevDfioo Baxter MD Work Phone: [facility] Work Phone: Start: 01-22-2025 End: 04-42-9745hcxyznqqdoGztmg R FAZIOFacility:FTMCStart: 01-22-2025 End: 20-05-4406Dmcappo encounter procedureCorey R KIESHA [facility] Start: 01-19-2025 End: 34-85-0181Atilmp outpatient visit 15 minutesCorey Kiesha DO Work Phone: noms BCP OBComment on above:Pain in female genitalia on intercourse; EndometriosisStart: 01-19-2025 End: 46-92-1979wbwbzcscmzSOUFD FAZIONot AvailableStart: 01-19-2025 End: 05-17-8432Eperme flowsheetCorey Kiesha DO Work Phone: NOMS BCP OBStart: 01-19-2025 End: 69-51-0428Uozexl flowsheetCorey Kiesha DO Work Phone: NOMS BCP OBStart: 12-30-2024 End: 57-39-1423ltybcabnkuNBLVWF R TREYANNot AvailableStart: 12-30-2024 End: 56-67-0570Bjeahp outpatient visit 15 minutesGeorge R Charlottecarol DO Work Phone: NOXC [facility] 230Comment on above:Hypertension, unspecified type (CMS/HCC) (Primary Dx); Paroxysmal tachycardia, unspecified (CMS/HCC); Chronic right shoulder pain; Scapular dyskinesisStart: 08-18-2024 End: 46-63-1502Vzrmza flowsheetCorey Kiesha DO Work Phone: noMS BCP OBStart: 08-18-2024 End: 60-57-4835Dmcsjh flowsheetCorey Kiesha DO Work Phone: noMS BCP OBStart: 08-18-2024 End: 71-04-4443Mbpxazsvt Result EncounterCorey Kiesha DO Work Phone: noms External Department UnsolicitedStart: 08-18-2024 End: 36-96-7125Uoqjrem encounter procedureCorey Kiesha DO Work Phone: [facility] Work Phone: Start: 08-18-2024 End: 05-12-7706Gikrfhfl preventive med est patient 18-39 yrsCorey Kiesha DO Work Phone: NOMS BCP OBComment on above:Well woman exam with routine gynecological examStart: 07-22-2024 End: 80-97-2380Givhhx flowsheetCorey Kiesha DO Work Phone: NOMS BCP OBStart: 07-22-2024 End: 80-59-0747Lslwja flowsheetCorey Kiesha DO Work Phone: NOFJ BCP OBStart: 07-22-2024 End: 60-86-1628Gkhxel outpatient visit 15 minutesCorey Kiesha DO Work Phone: NOMS BCP OBComment on above:Dysmenorrhea, unspecified Start: 53-29-1226Ukpzovolz encounterMegan Billow DO Work Phone: [facility]koshtart: 16-47-6692Zsglahpfn encounterMegan Billow DO Work Phone: WMay[facility] Red CedarComment on above:Surgery CancelledStart: 02-13-2024 End: 70-95-0468Mbzppycbp Result EncounterCorey Kiesha DO Work Phone: NOOE External Department UnsolicitedStart: 02-13-2024 End: 39-84-5045Jewxjydwq Result EncounterCorey Kiesha DO Work Phone: noms External Department UnsolicitedStart: 01-15-2024 End: 94-15-5107Crcsaxyjz Result EncounterCorey Kiesha DO Work Phone: noms External Department UnsolicitedStart: 01-15-2024 End: 35-63-4692Spadwafkl Result EncounterCorey Kiesha DO Work Phone: noms External Department UnsolicitedStart: 01-10-2024 End: 21-80-8120Irfupo outpatient visit 15 minutesCorey Kiesha DO Work Phone: NOMS BCP OBComment on above:Menorrhagia with regular cycle; Pelvic pain in female; Uses controlStart: 99-40-7218FkcapxHypfp Billow DO Work Phone: [facility] HospitalComment on above:Refill Request Start: 85-98-1299fwmpspeumgPlunm Billow DO Work Phone: Obstetrics/GynecologyComment on above:painStart: 12-10-2023 End: 24-68-4257bvdpjvdzceHGUBU BILLOWFacility:[facility]tart: 07-23-1233gxdhdfceyvDcxyh Billow DO Work Phone: REM PIRES MCStart: 98-40-5396Ebvxhlu encounter procedureMegan Billow DO Work Phone: Obstetrics/GynecologyComment on above:office visit Start: 09-12-2023 End: 45-40-3087Rayrdkfws department patient Berny Loco [facility] Start: 46-10-7054Yousya pelvic examinationMegan Billow DO Work Phone: Obstetrics/GynecologyComment on above:Pelvic pain in female (Primary Dx)Start: 61-70-8547mpsumykqmxLywuf Billow DO Work Phone: Obstetrics/GynecologyComment on above:painful periods Start: 08-24-2023 End: 91-46-3275Fzfkxa pelvic examinationErin iVcker COLLECTION MANAGER.CLINICAL SYSTEMS EDUCATOR Work Phone: GynecologyComment on above:High-tone pelvic floor dysfunction (Primary Dx); Chronic pelvic pain in femaleStart: 08-24-2023 End: 77-67-6383Tpsqkkguxuia consultation with Kelton Downs APRN.CLINICAL SYSTEMS EDUCATOR Work Phone: [facility] MAINStart: 08-24-2023 End: 80-88-3304qvcajtkqrmQPMA REAPERFacility:[facility] HospitalStart: 77-73-3289ihzekrmpevFojeu Billow DO Work Phone: Obstetrics/GynecologyComment on above:painful period Start: 98-29-8040Jnznotkaz encounterMegan Billow DO Work Phone: GynecologyComment on above:Insurance Authorization (Orilissa)Start: 07-16-2023 End: 36-24-0022btpczcwttaQGUGA BILLOWFacility:[facility] Hospitaltart: 06-12-2023 End: 87-42-4984optlcqwhwfDBWPN BILLOWFacility:[facility] Hospitaltart: 06-12-2023 End: 79-02-7726Bunibggqjg hospital visit by physicianandra [facility] Suki (I-Stat/1.5t) RadiologyComment on above:Pelvic and perineal pain [R10.2]Start: 05-17-2023 End: 48-49-6932Eqihkg pelvic examinationMegan Billow DO Work Phone: Obstetrics/GynecologyComment on above:Endometriosis (Primary Dx); Pelvic and perineal painStart: 05-17-2023 End: 06-13-0426Ymgjlvtaazzh consultation with kikaCharlene Rodriguez DO Work Phone: Dre [facility]CHULETAWORCESTER STATE HOSPITALtart: 05-17-2023 End: 01-24-4244dolylxolgdJKYXX ALAN BAXTERFacility:[facility] Start: 54-80-8559Ovqkmrvob encounterMekevin Billfanny DO Work Phone: GynecologyComment on above:Vaginal BleedingStart: 05-01-2023 End: 56-90-1895xnsjguriyuOINXCYang Stanleycility:[facility] Start: 05-01-2023 End: 51-62-4291Qoxgdmq encounter Lisa Downs APRN.CLINICAL SYSTEMS EDUCATOR Work Phone: GynecologyComment on above:Chronic pelvic pain in female (Primary Dx); Constipation, unspecified constipation type; High-tone pelvic floor dysfunction; Diastasis of rectus abdominis; Dysmenorrhea; Other specified dyspareuniaStart: 89-57-7264sxnorsfcnoNgyge Billow DO Work Phone: Obstetrics/GynecologyComment on above:painfulStart: 01-31-2023 End: 88-68-2720Ayglohuhp department patient visitAstrit Phuc [facility] Start: 12-30-2022 End: 60-44-7375Qhjqexe encounter procedureAstrit Phuc [facility] Start: 12-05-2022 End: 43-68-5437noipekwamnBHIPLincoln Hospital SHSStart: 12-05-2022 End: 00-14-7398Brdhzc outpatient visit 15 minutesGin Leonorsrinath DAY Work Phone: [facility] SystemComment on above:Pre- eclampsia, severe, delivered (Primary Dx)Start: 11-28-2022 End: 18-55-4497Yfznusounm and management of inpatientMemorial Hospital PembrokeStart: 11-28-2022 End: 39-98-3992Lafiruzbtu and management of inpatientSt. [facility] Work Phone: [facility] POSTPARTUMComment on above:Preeclampsia, severe, third trimester (Primary Dx)Start: 11-28-2022 End: 74-86-0591Hdt-admission assessmentGregrosa DORSEY [facility] Start: 11-27-2022 End: 00-37-0854WD TriageGregrosa DORSEY [facility] Start: 07-14-2022 End: 48-95-9278Mlmpwnnrq department patient visitCharlotteshayjunior Villagomez [facility] Start: 07-14-2022 End: 48-32-9734IF TriageNathan POP [facility] Start: 04-25-2022 End: 28-64-9901Cdfmfik encounter procedureCAMERON DITTY [facility] Start: 04-18-2022 End: 50-99-3628vyiuqzbpxzNmsvdri Ditty Other [place] Other Start: 00-53-4506Pxhwcdn encounter procedureCamdorene CarrilloyFPG GastroenterologyStart: 80-26-5623Gpotxb outpatient visit 15 minutes Charlene Rodriguez DO Work Phone: [phone]-GLYYD-[address] Work Phone: Start: 09-29-2021 End: 95-16-4580xkohakqaqtXJATD ROWENA [facility]pe[facility] HospitalStart: 09-29-2021 End: 08-75-9702jclssttbzgAKGRG ROWENAUC [facility] HospitalStart: 26-70-8035GZENNRkxbx Billow DO Work Phone: [phone]-SNAFA-[address] Work Phone: Start: 72-55-2216XCUZYLLMWB, Provider: Charlene Rodriguez, Status: Pen, Time: 2:45 Ina Chau MD Work Phone: [phone]-Kbkhssx-[place] Work Phone: Start: 32-99-0264Wzmua Oswaldo Chau MD Work Phone: [phone]-Lqniksc-[place] Work Phone: Procedures DateProcedureProcedure DetailPerforming ClinicianStart: 43-51-4230IR OB BPP W NON-STRESSKristina Elsa SENIOR DATA DEVELOPER Work Phone: Start: 83-30-2497Uqrld dip stick/tablet rgnt non-auto w/o micrscpCorey Kiesha DO Work Phone: Start: 46-39-5212NF OB BPP W NON-STRESSKristina Elsa SENIOR DATA DEVELOPER Work Phone: Start: 71-64-9290XB OB BPP W NON-STRESSKristina Elsa SENIOR DATA DEVELOPER Work Phone: Start: 40-68-4037Fonfj dip stick/tablet rgnt non-auto w/o micrscpCorey Kiesha DO Work Phone: Start: 60-96-5350RNX BUNCorey Kiesha DO Work Phone: Start: 60-14-5541PLG URIC ACIDCorey Kiesha DO Work Phone: Start: 19-17-1694QUV ALTCorey Kiesha DO Work Phone: Start: 55-00-6601KKI ASTCorey Kiesha DO Work Phone: Start: 96-75-2767WSM CREATININECorey Kiesha DO Work Phone: Start: 44-05-2010YSP URINE T PROTEIN CREAT RATIOCorey Kiesha DO Work Phone: Start: 34-58-4082Ucpmo dip stick/tablet rgnt non-auto w/o micrscpKristina Elsa SENIOR DATA DEVELOPER Work Phone: Start: 92-56-8999BDL TOTAL PROTEIN 24 HOUR URINE Generic External Data ProviderStart: 38-22-2988PU OB BPP W NON-STRESS Steph Elsa SENIOR DATA DEVELOPER Work Phone: Start: 47-74-6265JSD URINE T PROTEIN CREAT RATIO Generic External Data ProviderStart: 61-73-8452FWR CBC WITH AUTO DIFFGeneric External Data ProviderStart: 86-72-5624Tywwj dip stick/tablet rgnt non-auto w/o micrscpKristina Elsa SENIOR DATA DEVELOPER Work Phone: Start: 21-66-2191Gnsfzupi identified in Urine by CultureGeneric External Data ProviderStart: 96-25-8584Dugfoda quantitative blood xcpt reagent stripNot In System Ref ProvStart: 29-35-5676UUNKBB HOUR GLUCOSE TOLERANCE 100 GM LOADNot In System Ref ProvStart: 44-86-8658Wxnnr dip stick/tablet rgnt non-auto w/o micrscpCorey Kiesha DO Work Phone: Start: 66-22-4861BXI 1H POST 50G LOADNot In System Ref ProvStart: 96-67-5456YCP, SERUM, OPEN SPINA BIFIDACorey Kiesha DO Work Phone: Start: 52-88-0322Xjtoe dip stick/tablet rgnt non-auto w/o micrscpCorey Kiesha DO Work Phone: Start: 18-10-2988HHYPJOFCG VAGINITIS (HTRX)Nathan Kiesha DO Work Phone: Start: 77-75-8596Wnyus dip stick/tablet rgnt non-auto w/o micrscpCorey Kiesha DO Work Phone: Start: 25-74-2937Ioiee dip stick/tablet rgnt non-auto w/o micrscpCorey Kiehsa DO Work Phone: Start: 09-34-2960Oeobrhlo screenMadhuri Monroy MD Work Phone: Start: 10-10-7806Cpxh scrn 1+ class nonchromoNot In System Ref ProvStart: 37-54-0767Fwaqdncemu glycosylated r7fQtibn R Kiesha DO Work Phone: Start: 07-17-6372Utmgjddxr c antibodyNot In System Ref ProvStart: 42-33-9662NTK 1&2 AB/AG SCREEN (P24 AG)Not In System Ref ProvStart: 81-77-2296Kevn ia hepatitis b surface antigenNot In System Ref ProvStart: 05-42-0236GMYE AND SCREENNot In System Ref ProvStart: 44-78-9873QEY TESTCorey Kiesha DO Work Phone: Start: 64-22-9015Fysqj dip stick/tablet rgnt non-auto w/o micrscpCorey Kiesha DO Work Phone: Start: 87-53-1675WU OB TRANSVAGINALCorey Kiesha DO Work Phone: Start: 02-72-8591PJE,APTIMA HPV,AGE GDLNCorey Kiesha DO Work Phone: Start: 53-48-5418Larteyjnlzr observation [Identifier] in Cervix by Cyto stainCorey Kiesha DO Work Phone: Start: 78-27-8679YLD 12-LEADCorey Kiesha DO Work Phone: Start: 63-77-9368TK PELVIS W/ TRANSVAGINALCorey Kiesha DO Work Phone: Start: 15-02-5798Uzgk cerv/vag auto thin layer prep mnl screenCorey Kiesha DO Work Phone: Start: 70-91-0758Hnn pelvis w/o & w/contrast material Charlene Billow DO Work Phone: Start: 86-39-0645Ivhog count platelet automatedMichael O'Cormier COLLECTION MANAGER - INTERCEPTOR OPERATOR Work Phone: Start: 70-49-4598Pyxuv count platelet automatedCassie Constantino MD Work Phone: Start: 02-09-4209Kjeaj streptococcus group b amplified probe tqCassie Constantino MD Work Phone: Start: 61-38-5512KUW and Rh group [Type] in Blood by Confirmatory Carmine Constantino MD Work Phone: Start: 64-37-7304Ppxhx typing serologic Cait Constantino MD Work Phone: Start: 12-52-6001Kegesmbbmefgu metabolic panelCassie Constantino MD Work Phone: Start: 76-40-0993Yiqdfibp hiv-1&hiv-2 single result Megadyne [phone]: 57-23-7528Lepy ia hepatitis b surface antigenMegaalexis [id number]: 63-28-9195QlzsmhwzhfPNEYNRQ EDWARD Start: 08-30-2020 End: 85-17-3766Iqmpiraw screenComment on above:Performed By: #### T+S #### [facility] [address] [place], [place] [address]Mmnhw Comment: TEST TYPE + SCREEN WAS CANCELLED, 08/30/2020 13:37 JOP.Performed By: #### T+S #### [facility] [address] [place], [place] [address]Kxzhy: 44-41-9886QMDQP SHOULDER OPEN DISTAL CLAVICLE EXCISION 1CAMERON LOVEMindscore Comment on above:RIGHT SHOULDER OPEN DISTAL CLAVICLE EXCISIONRIGHT SHOULDER OPEN DISTAL CLAVICLE EXCISIONAppendectomyCAMERON LOVEMindscore betamethasone (substance)Fredi WILLIAN comment on above:Dose #1: 11/27/22ColonoscopyCAMERON EDWARD Endoscope, device (physical object)[place] LaparoscopyTeri Chau MD Work Phone: Plan of Treatment DateCare ActivityDetailAuthorStart: 11-31-9315Onhphw Vaccines (1 of 2)Zoster Vaccines (1 of 2)[facility] HealthStart: 35-18-9358Phuxzabvi for malignant neoplasm of cervixNOMS HealthcareStart: 10-03-4178Xjthjtcaw for malignant neoplasm of cervixPap SmearNOMS HealthcareStart: 13-56-2078Bcpap BMI ScreeningAdult BMI ScreeningProMercy Health Allen Hospitalca Health SystemStart: 83-16-5285Dgkagac ScreeningTobacco ScreeningProMercy Health Allen Hospitalca Health SystemStart: 69-97-8890Fyyuj BMI ScreeningAdult BMI ScreeningProMercy Health Allen Hospitalca Health SystemStart: 18-66-6600Sjepk BMI ScreeningAdult BMI ScreeningProMedica Health SystemStart: 11-03-2025 End: 93-02-2542Vajdqqu encounter /09/2025 2:30 PM EST Office Visit Maternal- Medicine at [facility] [address] [place] [id number] Chivo Springer PA-C [address] [facility] [address] [place] [address] [id number] [facility] [facility] 10-14-2025 End: 91-30-4055Ymacxir encounter mvjihmptj56/19/2025 3:30 PM EST Routine NOMS Patti YOUNGN [address] [place], [id number] Nathan Pop DO [address] [facility] [place] [place] [address] NOMShalonda IYERGYNStart: 10-08-2025 End: 98-72-1461Oaizfnz encounter jnklpbedl16/13/2025 8:00 AM EST Appointment Maternal [facility] [place] [address] [facility] [address] [place] [address] [phone] Medicine [place] PaulStart: 10-06-2025 End: 28-75-0259Wsctxlzgomha consultation with gsvxexs4010/06/2025 2:30 PM EST Telemedicine Maternal- Medicine at [facility] [address] [place] [address] Chivo Springer PA-C [address] [facility] [place] [address] [address] [facility] at [facility]: 10-05-2025 End: 43-67-2424Gmmgagd encounter crhbcuuqo17/10/2025 3:00 PM EST Office Visit Maternal- Medicine at [facility] [address] [place] [address] Chivo Springer PA-C [address] [facility] [place] [address] [address] [facility] at [facility]: 10-05-2025 End: 35-49-5286Zyceeojaickr consultation with rsayfcl5610/05/2025 3:00 PM EST Telemedicine Maternal- Medicine at [facility] [address] [place] [address] Chivo Springer PA-C [address] [address] [facility]: 88-91-1196PGQ ( or age 60+ yrs) (1 - Risk 1-dose series)RSV ( or age 60+ yrs) (1 - Risk 1-dose series)[facility] 09-30-2025 End: 70-28-8116Bsowdsd encounter procedureNOMS Patti YOUNGNComment on above: ArrivedStart: 09-16-2025 End: 45-34-7873QW biophysical profile w non stress testUS biophysical profile w non stress test Imaging Routine Gestational diabetes mellitus (GDM),antepartum, gestational diabetes method of control unspecified ([facility]) Expected: 09/16/2025, Expires: 09/16/2026NOMS HealthcareComment on above:Expected: 09/16/2025, Expires: 09/16/2026Start: 09-15-2025 End: 40-67-0781Jwvbqfl encounter xnxedzpbi23/21/2025 2:50 PM EDT Routine NOMShalonda MOODY [address] [place], [id number] Zenobia Gutierrez PA [address] [place] [address] NOMShalonda Izaguirrert: 09-10-2025 End: 04-86-5181Ufsooacducus consultation with xcgkbec9209/10/2025 11:00 AM EDT Telemedicine Maternal Medicine [place] [address] [phone] Madhuri Monroy MD [address] [facility] [place], [address] [place] [address] [facility] Medicine [place]: 09-10-2025 End: 09-30-5919Nfmjtps encounter keivnyukh90/16/2025 9:45 AM EDT Appointment Maternal Medicine [place] [address] [phone] [phone] Medicine [facility]: 09-07-2025 End: 35-86-6546Ziembgg encounter procedureNOMS BCP OBStart: 09-04-2025 End: 32-85-1225Cqirmcm encounter nzqqlyegv79/10/2025 3:00 PM EDT Office Visit Maternal- Medicine at [facility] [address] [facility] [place] [phone] Mine Denise MD [address] [facility]ENCOM[facility], [address] [place] [address] M[facility]- Medicine at [facility]: 09-03-2025 End: 45-35-6037Nroytyb encounter procedureNOMS [place] OBGYNComment on above: [facility]: 08-27-2025 End: 24-71-1395Wcpbqfa encounter fhufnhyvo00/02/2025 3:20 PM EDT Routine NOMShalonda [place] OBGYN [address] [place], [id number] Steph Keane NP [address] [place] [address] NOMS Patti Izaguirrert: 08-27-2025 End: 67-16-1408Nygimej aminotransferase [Enzymatic activity/volume] in Serum or PlasmaALT Lab Routine induced hypertension, antepartum ([facility]-HCC) Expected: 08/27/2025 (Approximate), Expires: 08/27/2026[facility] HealthcareComment on above:Expected: 08/27/2025 (Approximate), Expires: 08/27/2026Start: 08-27-2025 End: 88-63-6909Eoqtkhlac aminotransferase [Enzymatic activity/volume] in Serum or PlasmaAST Lab Routine induced hypertension, antepartum ([facility]HS-HCC) Expected: 08/27/2025 (Approximate), Expires: 08/27/2026[facility] HealthcareComment on above:Expected: 08/27/2025 (Approximate), Expires: 08/27/2026Start: 08-27-2025 End: 02-99-8228HHI W Auto Differential panel - BloodCBC and differential Lab Routine induced hypertension, antepartum ([facility]HS-HCC) Expected: 12/2024 (Approximate), Expires: 08/27/2026[facility] HealthcareComment on above: Expected: 08/27/2025 (Approximate), Expires: 08/27/2026art: 08-27-2025 End: 16-80-1269Kjcybouttd [Mass/volume] in Serum or PlasmaCreatinine Lab Routine induced hypertension, antepartum ([facility]HS-HCC) Expected: 08/27/2025 (Ap proximate), Expires: 08/27/2026[facility] Work Phone: comment on above:Expected: 08/27/2025 (Approximate), Expires: 08/27/2026Start: 08-27-2025 End: 66-30-8461Sbpmzep dehydrogenase [Enzymatic activity/volume] in Serum or Plasma by Lactate to pyruvate reactionLactate dehydrogenase Lab Routine induced hypertension, antepartum ([facility]HS-HCC) Expected: 08/27/2025, Expires: 08/27/2026[facility] HealthcareComment on above:Expected: 08/27/2025, Expires: 08/27/2026Start: 08-27-2025 End: 65-92-8215Cdocvnf, urine, 24 hourProtein, urine, 24 hour Lab Routine induced hypertension, antepartum ([facility]HS-HCC) Expected: 08/27/2025 (Approximate), Expires: 08/27/2026[facility] HealthcareComment on above:Expected: 08/27/2025 (Approximate), Expires: 08/27/2026Start: 08-27-2025 End: 28-64-0784Ah and pttPt and ptt Lab Routine induced hypertension, antepartum ([facility]HS-HCC) Expected: 08/27/2025, Expires: 08/27/2026[facility] Comment on above:Expected: 08/27/2025, Expires: 08/27/2026Start: 08-27-2025 End: 00-95-6562Qkmao [Mass/volume] in Serum or PlasmaUric acid Lab Routine induced hypertension, antepartum ([facility]HS-HCC) Expected: 08/27/2025 (Bouchra roximate), Expires: 08/27/2026[facility] HealthcareComment on above:Expected: 08/27/2025 (Approximate), Expires: 08/27/2026Start: 08-27-2025 End: 93-84-9408Obha nitrogen [Mass/volume] in Serum or PlasmaBUN Lab Routine induced hypertension, antepartum ([facility]HS-HCC) Expected: 08/27/2025, Expires:08/27/2026[facility] HealthcareComment on above:Expected: 08/27/2025, Expires: 08/27/2026Start: 08-27-2025 End: 85-90-5012KG biophysical profile w non stress testUS biophysical profile w non stress test Imaging Routine induced hypertension, antepartum ([facility]) Gestational diabetes mellitus (GDM) in second trimester, gestational diabetes method of control unspecified ([facility]) Expected: 08/27/2025 (Approximate), Expires: 02/25/2026[facility] HealthcareComment on above:Expected: 08/27/2025 (Approximate), Expires: 02/25/2026Start: 08-24-2025 End: 71-05-0611wvmpuodygx05/29/2025 1:30 PM EDT Support Visit Maternal- Medicine at [facility] [address] [place] [place] [phone] Teena Sarmiento, RN [address] [facility] [place] [address] Kerline Augustin, RD [address]ANETTEYELITZAENCOMPASS [facility], [address] [place] [address] M[facility]- Medicine at [facility]: 08-24-2025 End: 45-23-8973Ayilsgh encounter mygzujuug18/29/2025 11:00 AM EDT Office Visit NOMS BCP OB [address] [facility] [place] [phone] Nathan Pop, DO [address] [place] [address] NOMS BCP OBStart: 08-12-2025 End: 96-46-5556Tmnncqp encounter czietfklf91/17/2025 2:40 PM EDT Routine NOMShalonda YOUNGN [address] [place], [id number] Nathan Pop, DO [address] [place] [address] NOMShalonda [place] OBGYNStart: 08-12-2025 End: 82-76-3212Whdiwlzytca of glucose 3 hours after glucose challenge for glucose tolerance testGlucose tolerance, 3 hours Lab Routine Elevated glucose tolerance test Expected: 08/12/2025 (Approximate), Expires: 08/12/2026[facility] Work Phone: comment on above:Expected: 08/12/2025 (Approximate), Expires: 08/12/2026Start: 08-12-2025 End: 52-52-8902Fcuvxesaoasc / ancillary services tcdbayvfft05/17/2025 2:00 PM EDT Ancillary Procedure NOMS Patti YOUNGN [address] [place] [address] [place] [address] ERNS Patti OBGYNStart: 07-31-2025 End: 20-79-3308VKB W Auto Differential panel - BloodCBC and differential Lab Routine Hypertension, unspecified type Wellness examination Expected: 07/31/2025 (Approximate), Expires: 08/29/2025[facility] Work Phone: Comment on above:Expected: 07/31/2025 (Approximate), Expires: 08/29/2025Start: 07-31-2025 End: 94-97-5284Eapozgauvildc metabolic 2000 panel - Serum or PlasmaComprehensive metabolic panel Lab Routine Hypertension, unspecified type Wellness examination Expected: 07/31/2025 (Approximate), Expires: 08/29/2025[facility] HealthcareComment on above:Expected: 07/31/2025 (Approximate), Expires: 08/29/2025Start: 07-31-2025 End: 74-32-5071Ecwfx 1996 panel - Serum or PlasmaLipid panel Lab Routine Wellness examination Lipid screening Expected: 07/31/2025 (Approximate), Exp ires: 08/29/2025[facility] HealthcareComment on above:Expected: 07/31/2025 (Approximate), Expires: 08/29/2025Start: 07-30-2025 End: 30-25-6159Umrxkxt encounter uyxrlmmuo93/04/2025 3:40 PM EDT Office Visit [facility] [address] [place] [address] Eliceo Beltran DO [address] [place] [address] [facility]NO[facility] 230Comment on above:ArrivedStart: 34-87-7124PSNXT-19 Vaccine ( season)COVID-19 Vaccine ( season)[facility] HealthcareStart: 07-27-2025 Influenza vaccinationNOWI HealthcareStart: 07-15-2025 End: 54-41-7224Dabywmj encounter kagsgkqqn67/20/2025 3:30 PM EDT Routine NOMS Patti OBGYN [address] [facility] [facility] [address] [place], [id number] Nathan Pop, [address] [place] [address] NOMS Patti OBGYNStart: 07-15-2025 End: 00-50-1141Jkehbmopjkns / ancillary services fmdnpnaowe49/20/2025 2:30 PM EDT Ancillary Procedure NOMS Patti OBGYN [address] [place] [address] NOMS [place] OBGYNStart: 07-15-2025 End: 56-96-3811DPV panel - Blood by Automated countCBC Lab Routine Diabetes mellitus screening Expected: 07/15/2025 (Approximate), Expires: 07/15/2026[facility] Work Phone: comment on above:Expected: 07/15/2025 (Approximate), Expires: 07/15/2026Start: 07-15-2025 End: 39-30-7714Jovuxgwcdho of glucose 1 hour after glucose challenge for glucose tolerance testGlucose tolerance, 1 hour Lab Routine Diabetes mellitus screening Expected: 07/15/2025 (Approximate), Expires: 07/15/2026[facility] HealthcareComment on above:Expected: 07/15/2025 (Approximate), Expires: 07/15/2026Start: 06-22-2025 End: 27-06-4829Hynnweb encounter tywvyxkoy30/28/2025 2:10 PM EDT Routine NOMS Patti OBGYN [address] [facility] [address] [place], [id number] Nathan Pop, [address] [place] [address] ArrivedNOMS Patti OBGYNComment on above:ArrivedStart: 06-22-2025 End: 73-95-0465Rcclk fetoprotein, maternalAlpha fetoprotein, maternal Lab Routine Second trimester ([facility]) 17 weeks gestation of ([facility]) Expected: 06/22/2025 (Approximate), Expires: 12/23/2025[facility] Healthcare Comment on above:Expected: 06/22/2025 (Approximate), Expires: 12/23/2025Start: 06-22-2025 End: 62-98-6469PC for pregnancyUS OB 14+ weeks anatomy scan Imaging Routine Screening, , for anatomic survey ([facility]) Expected: 06/22/2025, Expires: 09/22/2025[facility] Work Phone: comment on above:Expected: 06/22/2025, Expires: 09/22/2025Start: 05-25-2025 End: 59-14-5492Ulqxlre encounter tqdlqrbon61/30/2025 2:40 PM EDT Routine NOMS BCP OB [address] [place] [address] Nathan Pop, DO [address] [facility] [address] [place] [address] NOMS BCP OBStart: 05-01-2025 End: 97-74-2357AKG/RhABO/Rh Lab Routine Missed menses , unspecified gestational age Expected: 05/01/2025 (Approximate), Expires: 05/01/2026[facility] HealthcareComment on above:Expected: 05/01/2025 (Approximate), Expires: 05/01/2026Start: 05-01-2025 End: 83-52-1892Cjubn type and Indirect antibody screen panel - BloodType and screen Lab Routine Missed menses , unspecified gestational age Expected: 05/01/2025 (Approximate), Expires: 05/01/2026[facility] Work Phone: comment on above:Expected: 05/01/2025 (Approximate), Expires: 05/01/2026Start: 05-01-2025 End: 26-57-5860Djrod of abuse panel - Urine by Screen methodRapid drug screen, urine Lab Routine , unspecified gestational age Encounter for supervision of normal first in first trimester Expected: 05/01/2025 (Approximate), Expires: 05/01/2026N[facility] HealthcareComment on above:Expected: 05/01/2025 (Approximate), Expires: 05/01/2026Start: 01-19-2025 End: 09-75-9986Ieidput encounter procedureNOMS BCP OBComment on above:Arrived Start: 01-19-2025 End: 94-56-6800VdbxamqnmxqhDutpmshryvpr Lab Routine Pain in female genitalia on intercourse Endometriosis Expected: 01/19/2025(Approximate), Expires: 01/19/2026 [facility] Work Phone: comment on above:Expected: 01/19/2025 (Approximate), Expires: 01/19/2026Start: 08-18-2024 End: 55-00-7273Lpunrdb encounter procedureNOMS BCP OBComment on above:Arrived Start: 07-38-1729Absvulfst vaccinationProMedica Toledo Hospitaltart: 07-22-2024 End: 06-18-0654CU for pregnancyUS PELVIS-TRANSVAG IF INDICATED Imaging Routine Dysmenorrhea, unspecified Expected: 07/22/2024 (Approximate), Expires: 07/22/2025[facility] Work Phone: comment on above:Expected: 07/22/2024 (Approximate), Expires: 07/22/2025Start: 06-23-2024 End: 73-66-7048Kikmblf encounter eawtsdvdj57/29/2024 10:30 AM EDT Office Visit Obstetrics/Gynecology [address] [address] Charlene Rodriguez DO [address] [place] [address] 2 WEEK POST OPObstetrics/GynecologyComment on above:2 WEEK POST OPStart: 05-27-2024 End: 33-37-0682Marikdvze to same day surgery ifmkmc6105/27/2024 7:30 AM EDT - 05/27/2024 9:30 AM EDT Surgery [facility] Surgery [address] [place] [address] Charlene Rodriguez, DO [address] [place] [address] LAPAROSCOPY FULGURATION OR EXCISION OF LESIONS OF THE OVARY PELVIC VISCERA OR PERITONEAL SURFACE BY ANY METHODJ.W. Ruby [facility] Hospital SurgeryComment on above:LAPAROSCOPY FULGURATION OR EXCISION OF LESIONS OF THE OVARY PELVIC VISCERA OR PERITONEAL SURFACE BYANY METHODStart: 05-27-2024 End: 51-46-3178Yxyo fulg/exc ovary viscera/peritoneal surfaceLAPAROSCOPY FULGURATION OR EXCISION OF LESIONS OF THE OVARY PELVIC VISCERA OR PERITONEAL SURFACE BYANY METHOD Endometriosis 05/27/2024 7:30 AM EDTME ORStart: 05-27-2024 Subsequent hospital visit by cqybamhqu19/02/2024 7:30 AM EDT Hospital Encounter [facility] Surgery [address] [place] [address] Charlene Rodriguez, DO [address] [place] [address] [phone] (F ax) Endometriosis [N80.9][facility] SurgeryComment on above:Endometriosis [N80.9]Start: 67-48-9986Nikwriuox vaccinationInfluenza Vaccine (#1)[facility]OMS HealthcareComment on above:Postponed from 07/27/2023 (Patient Refused)Start: 05-20-2024 End: 96-34-1935frvdyrkgzc83/25/2024 10:00 AM EDT [facility] [employer] [facility] [address] [address] [place], [employer] Entry Level Marketing Representative Nurse [address] [address] RN GLENNGYN UROL [facility] MOBComment on above:RN TEACHINGStart: 04-22-2024 End: 17-82-7950Pjfglhr encounter skoysinjw52/28/2024 9:00 AM EDT Office Visit [facility] [address] [place] [address] Denny Rodríguez MD [address] [place] [address] NOMS SEP FMStart: 91-70-8863JRfZ,Tdap and Td Vaccines (7 - Td or Tdap)DTaP,Tdap and Td Vaccines (7 - Td or Tdap)[facility] SystemStart: 47-44-3520GGwF/Tdap/Td Vaccines (7 - Td or Tdap)DTaP/Tdap/Td Vaccines (7 - Td or Tdap)[facility] CenterStart: 49-74-3776Olybi microalbumin profileDTaP,Tdap,Td Vaccine (7 - Td or Tdap)[facility]: 01-30-2024 End: 14-29-3696Lomqyad encounter loyejbqad43/06/2024 11:10 AM EST Consult [facility] OB [address] [place] [address] Nathan Pop DO [address] [place] [address] [facility]S [facility] OBStart: 01-15-2024 End: 56-39-1471Aabeljbofvbv / ancillary services tkrjczedsw27/20/2024 8:00 AM EST Ancillary Procedure NOMS [facility] [address] [place] [address] N[facility]S [facility] OBStart: 01-10-2024 End: 45-74-1250ZH for pregnancyUS PELVIS-TRANSVAG IF INDICATED Imaging Routine Pelvic pain in female Expected: 01/10/2024 (Approximate), Expires: 01/10/2025 [facility] Work Phone: comment on above:Expected: 01/10/2024 (Approximate), Expires: 01/10/2025Start: 79-87-2027Cywqlttygo Health ScreeningBehavioral Health ScreeningProMedica Toledo Hospitaltart: 09-82-0613Atokltycpr AssessmentDepression AssessmentCleGrand Lake Joint Township District Memorial Hospitaltart: 88-74-9825Pkbji-19 Vaccine ( season) Covid-19 Vaccine ( season)[facility]: 38-68-9776Znxbonrpl vaccinationProMedica Toledo Hospitaltart: 09-86-3491HJGFJCVMDT ASSESSMENTDEPRESSION ASSESSMENTProMedica Toledo Hospitaltart: 79-47-6883Thkccebwo vaccinationInfluenza Vaccine (#1)[facility] CenterStart: 72-74-9150DWW, Provider: Charlene Rodriguez, Status: Pen, Time: 1:30 PMFUV, Provider: Charlene Rodriguez, Status: Pen, Time: 1:30 PM DA-RFRBH-Rerxea [address] Work Phone: Start: 66-00-3481BXJ, Provider: Charlene Rodriguez, Status: Pen, Time: 11:15 AMFUV, Provider: Charlene Rodriguez, Status: Pen, Time: 11:15 AM RE-MIKTM-Fdxlwz [address] Work Phone: Start: 42-30-1288DWJ TESTINGPAP TESTINGProMedica Toledo Hospitaltart: 95-62-2632Khwpukfyv for malignant neoplasm of cervixProMedica Toledo Hospitaltart: 49-18-9517PKgM,Tdap and Td Vaccines (1 - Tdap)DTaP,Tdap and Td Vaccines (1 - Tdap)[facility]: 69-25-1922CPaA/Tdap/Td Vaccines (1 - Tdap)DTaP/Tdap/Td Vaccines (1 - Tdap)[facility] CenterStart: 49-92-2909Sdniy microalbumin profileProMedica Toledo Hospitaltart: 97-49-1562Rrkmp BMI Follow Up Plan Adult BMI Follow Up PlanSloop Memorial Hospitaltart: 45-73-9743Mdtmb BMI ScreeningAdult BMI ScreeningSloop Memorial Hospitaltart: 02-58-7968TFXQRB PCP TEAM CHRONIC DISEASE VISITANNUAL PCP TEAM CHRONIC DISEASE VISITOhiohealth [facility] Start: 44-65-1787GS CONTROLLED (<130/80)BP CONTROLLED (<130/80)[facility] Start: 02-99-1014PQHHWQZSJ C SCREENINGHEPATITIS C SCREENINGOhiohealth Southeastern Medical Center Start: 66-42-6802Wrtiqalig C screeningHepatitis C ScreeningOhiohealth Southeastern Medical Center Start: 84-72-9351CZU SCREENINGHIV SCREENINGProMedica Toledo Hospitaltart: 88-06-9532YOL screeningHIV ScreeningProMedica Toledo Hospitaltart: 81-66-7363Htyadqr of varicella vaccinationVaricella Vaccines (1 of 2 - 13+ 2-dose series)[facility] HospitalStart: 35-15-4837Wjhhexyfkf ScreeningDepression ScreeningSloop Memorial Hospitaltart: 11-73-4744Jpwbnme ScreeningTobacco ScreeningSloop Memorial Hospitaltart: 39-47-2723Urgsfjxuu vaccinationVaricella Vaccines (1 of 2 - 2-dose childhood series)[facility] CenterStart: 60-80-1716ETQ Vaccines (1 of 1 - Standard series)MMR Vaccines (1 of 1 - Standard series)[facility] CenterStart: 51-50-8250Iaoijjbly vaccinationVaricella Vaccines (1 of 2 - 2-dose childhood series)[facility] Start: 96-65-5377JSTJN-19 VACCINE (#1)COVID-19 VACCINE (#1)[facility] Start: 12-35-8872DDIOPGDTN B (1 of 3 - 3-dose series)HEPATITIS B (1 of 3 - 3- dose series)[facility]: 99-39-8309Yvgoczodm B Vaccine (1 of 3 - 3- dose series)Hepatitis B Vaccine (1 of 3 - 3-dose series)[facility]: 58-47-3913Aznngbgto B Vaccines (1 of 3 - 3-dose series)Hepatitis B Vaccines (1 of 3 - 3-dose series)[facility] CenterStart: 07-81-1670Kkenw panelLipid PanelSumma HealthBacteria identified in Urine by CultureUrine culture Microbiology Routine Missed menses Ordered: 05/01/2025[facility] HealthcareComment on above:Ordered: 05/01/2025BC W Auto Differential panel - BloodCBC and differential Lab Routine Missed menses , unspecified gestational age Ordered: 05/01/2025[facility] HealthcareComment on above:Ordered: 05/01/2025ytology Cervical or vaginal smear or scraping studyPap Smear Pathology and Cytology Routine Well woman exam with routine gynecological exam Ordered: 08/18/2024[facility] Work Phone: comment on above:Ordered: 08/18/2024Hemoglobin A1c/Hemoglobin.total in BloodHemoglobin A1c Lab Routine Missed menses , unspecified gestational age Ordered: 05/01/2025[facility] HealthcareComment on above: Ordered: 05/01/2025Hepatitis B virus surface Ag [Presence] in Serum or Plasma by ImmunoassayHepatitis B surface antigen Lab Routine Missed menses , unspecified gestational age Ordered: 05/01/2025[facility] HealthcareComment on above: Ordered: 05/01/2025Hepatitis C virus Ab [Presence] in Serum or Plasma by ImmunoassayHepatitis C antibody Lab Routine Missed menses , unspecified gestational age Ordered: 05/01/2025[facility] HealthcareComment on above:Ordered: 05/01/2025HIV-1/HIV-2 antigen/antibody combination immunoassayHIV-1 and HIV-2 antibodies Lab Routine Missed menses , unspecified gestational age Ordered: 05/01/2025[facility] HealthcareComment on above:Ordered: 05/01/2025 End: 73-61-4421Bzz pelvis w/o & w/contrast materialMRI FEMALE PELVIS WO/W IVCON Radiology Routine Pelvic and perineal pain 1 Occurrences [facility] 05/17/2023 until [facility] Work Phone: Comment on above:1 Occurrences starting 05/17/2023 until 4Reagin Ab [Presence] in Serum by RPRRPR Lab Routine Missed menses , unspecified gestational age Ordered: 05/01/2025[facility] Comment on above:Ordered: 05/01/2025Rubella antibody, IgGRubella antibody, IgG Lab Routine Missed menses , unspecified gestational age Ordered: 04/2025[facility] HealthcareComment on above:Ordered: 05/01/2025 End: 19-31-9554WdrkxzHarry S. [facility] Work Phone: Comment on above:Once (Lab) for 1 Occurrences starting 11/30/2022 until 11/30/2022, 1 completed End: 81-19-4535NS for pregnancyUS OB follow up transabdominal approach Imaging Routine Gestational diabetes mellitus (GDM), antepartum, gestational diabetes method of control unspecified ([facility]-HCC) every 4 weeks for 2 Occurrences starting 09/16/2025 until 12/17/2025[facility] Work Phone: comment on above:every 4 weeks for 2 Occurrences starting 09/16/2025 [facility] Immunizations Immunization DateImmunizationNotesCare KsejvnscNzjmnrwt67-52-6753ypoiiviis A vaccine, adult dosageCorey Kiesha DO Work Phone: [facility] HospitalFotmcrpcyu75-26-0599julev papilloma virus vaccine, quadrivalentCorey Kiesha DO Work Phone: [facility] HospitalOiwzdmzaqa99-12-7007ufowczxhh, seasonal, injectable, preservative freeCorey Kiesha DO Work Phone: [facility] HospitalCjhhxzgtan83-73-4932umzprwbzr virus vaccine, unspecified formulationGina Moschella DO Work Phone: [facility] CenterLywnfo77-87-6688bvbds papilloma virus vaccine, quadrivalentCorey Kiesha DO Work Phone: [facility] HospitalIxaxmmmoot93-31-0415thqfnkjpu A vaccine, adult dosageCorey Kiesha DO Work Phone: [facility] HospitalAcjrgbripk98-15-8337ttgdx papilloma virus vaccine, quadrivalentCorey Kiesha DO Work Phone: [facility] HospitalKbhyvzapvp93-19-9005ozfxbsj toxoid, reduced diphtheria toxoid, and acellular pertussis vaccine, adsorbedCorey Kiesha DO Work Phone: [facility] HospitalAfllovrybb66-39-5742sfdvhulvszopy polysaccharide (groups A, C, Y and W-135) diphtheria toxoid conjugate vaccine (MCV4P)Nathan Kiesha DO Work Phone: [facility] HospitalJvdmhghhlq71-14-8224faufqcwfkg, tetanus toxoids and acellular pertussis vaccine, unspecified formulationCorey Kiesha DO Work Phone: [facility] HospitalIcyqsydbzv96-30-4533zwlnvff, mumps and rubella virus vaccineCorey Kiesha DO Work Phone: [facility] HospitalBexyckftyn65-40-3340vzihmytxtt vaccine, inactivatedCorey Kiesha DO Work Phone: [phone] [facility] HospitalLuovszswce58-86-0550ddumffhcsz, tetanus toxoids and acellular pertussis vaccine, unspecified formulationCorey Kiesha DO Work Phone: [phone] [facility] HospitalVulbkiwobd29-92-4152XTI-Gbfleuxyqak influenzae type b conjugate vaccineCorey Kiesha DO Work Phone: [phone] HospitalAfuumtnrht46-25-5872pcqypfqbk B vaccine, pediatric or pediatric/adolescent dosageCorey Kiesha DO Work Phone: [phone] [facility] HospitalBtrnddqera25-83-3685jgirjzq, mumps and rubella virus vaccineCorey Kiesha DO Work Phone: [phone] [place], [place] [address]Chsfqqrchq78-45-9271qwekzueol poliovirus vaccine, live, oralCorey Kiesha DO Work Phone: [phone] [place], [place] [address]Wmqyjycsbe46-26-8823DCA-Sotfiekrsdv influenzae type b conjugate vaccineCorey Kiesha DO Work Phone: [phone] [place], [place] [address]Agycfjvbyp96-42-0174sjnnhplyx B vaccine, pediatric or pediatric/adolescent dosageCorey Kiesha DO Work Phone: [phone] [place], [place] [address]Dfiruvcvgc54-88-6222trtmrfems poliovirus vaccine, live, oralCorey Kiesha DO Work Phone: [phone] [place], [place] [address]Jkuuiplhsk66-45-6627HNE-Ybdlpydjxmf influenzae type b conjugate vaccineCorey Kiesha DO Work Phone: [phone] [place], [place] [address]Shbiofsojr07-90-9996ybuzgxkjp B vaccine, pediatric or pediatric/adolescent dosageCorey Kiesha DO Work Phone: [phone] [place], [place] [address]Wgudxezfxj54-20-5942shjionjul poliovirus vaccine, live, oralCorey Kiesha DO Work Phone: [phone] [facility] HealthcareNEGATED: Highlighted row has not occurred!87-45-1726kisfmfa, mumps and rubella virus vaccineKatcarlos Ryder DO Work Phone: [facility] HealthComment on above:Deferred: Other - Rubella ImmuneNEGATED: Highlighted row has not occurred!18-67-1357fivcthq toxoid, reduced diphtheria toxoid, and acellular pertussis vaccine, janetKathe Ryder DO Work Phone: [facility] CenterComment on above:Deferred: No longer needed - Refused Tdap vaccine. Payers DatePayer CategoryPayerPolicy [id number] Managed Care - [facility] [id number] [facility] [id number] [id number] 40-62-6010[facility] [id number].08843-73-8312Qjwowbd98-10-3183 AxvbdixWUL999D9451962-57-9148Usjtgbs Health Insurance [id number] [id number] Health [id number] 2..1.863213.3.579.2.174 [id number] 2..1.855099.3.57[id number] 2..1.228379.3.57[id number] 2..1.594347.3.57[id number] 2..1.068564.3.57[id number] 2..1.320593.3.57[id number] 2..1.122069.3.57[id number] 2..1.792033.3.57[id number] 2.840.1.152531.3.579.[id number] 2.0.1.494381.3.57[id number] 2.840.1.214712.3.579.2.9[id number] 2.0.1.598255.3.57[id number] 2..1.424682.3.579.2.0[id number] 2.0.1.313359.3.57[id number] 2..1.731303.3.579.2.699771-24-1331Qskczhs34382612 2..1.614937.3.579.2.064337-62-5421Zjmukao00893939 2..1.976649.3.57[id number] 2..1.921493.3.579.2.943694-50-9139Cmomqjb24145019 2..1.727891.3.579.2.019180-06-2674Turswbx52372559 2.0.1.588988.3.579.2.707018-44-0278Ffzrjfk03070598 2..1.393498.3.57[id number] 2.0.1.576678.3.579.2.889142-06-2670Pnbdimy9091485 2.840.1.445456.3.579.2.387587-99-8961Nwsrzif1735659 2..840.1.798543.3.579.2.074225-61-8273Eldlyuy085903068 2..840.1.714960.3.579.2.667315-75-3463Rqpzuuw869778859 2..840.1.606508.3.57[id number] 2.16.840.1.350887.3.579.2.5460Sqgitog22629170 2.840.1.235719.3.579.2.531 Social History DateTypeDetailFacilityStart: 01-06-2021 End: 76-68-8145Alxzrt uses seat beltAlways uses seat beltNOMS HealthcareStart: 12-10-2018 End: 86-96-1612Mqtezrm smoking statusNever smoked tobacco (finding)[facility] Hospitaltart: 83-74-9615Hznecjn smoking statusNeverOhioHealth O'Bleness Hospitaltart: 01-06-2021 End: 50-48-1235Vqc Assigned At [facility] Marinelayer Other ToMartins Ferry HospitalComment on above: denies.Tobacco smoking statusOhioHealth O'Bleness Hospitaltart: 12-10-2018 End: 18-91-2722Acyhzci use and exposureSmokeless tobacco non-userProMedica Toledo Hospitaltart: 04-11-2023 End: 71-37-4931Ihoppur intakeCurrent drinker of alcohol (finding)[facility] Hospitaltart: 13-66-5237Kbymtng Commentmaybe a few drinks a monthOhiohealth Southeastern Medical Center Start: 02-74-6693Sbk Assigned At [facility] CityNot on [place] Healthumak HealthStart: 01-10-2024 End: 07-61-0606Ezxipvo intakeLifetime non-drinker (finding)[facility] HealthWithin the last year, have [...] got money to buy more.Never trueNOMS HealthcareStart: 56-18-9467Lpfagykqh22ZNQU HealthcareStart: 41-66-4644Knkkcqf Commentcaffeine: 1-2 cups per day, coffee and popNOWI HealthcareStart: 19-83-9650Rvqfcsx SDOH IPV Lpdk7Nvgiz HealthStart: 35-57-3162Ulejkfp SDOH Housing Places Rolxr1Pvtfc HealthStart: 04-12-2022 [facility] HealthStart: 11-18-2022 End: 17-25-9125Pezzoqiw to SARS-CoV-2 (event)Not sureSuohiohealth pickerington methodist hospital HealthAre you now , , , , never or living with a partner? MarriedNOMS HealthcareDo you feel stress - tense, restless, nervous, or anxious, or unable to sleep at night because yourmind is troubled all the time - these days [OSQ]Only a littleNOWI HealthcareStart: 12-02-2018 End: 01-67-5157EivPytqyq (finding)[facility] Youngstowntart: 86-24-6158Ybu Assigned At [facility] Centertart: 08-19-2025 End: 72-58-5760Bufurazxl beverage intakeCurrent non-drinker of alcohol (finding) [facility] HospitalVirtual [facility] [employer] [facility] Medical Equipment Procedure CodeEquipment CodeEquipment Original TextEquipment IdentifierDates [id number]: 08-20-2025 End: each by In Vitro route Daily Use to check FSBS four times daily [id number]: 08-20-2025 End: 15-38-4591Kis pen needles to give insulin.[id number]: 09-04-2025 Functional Status XaflIqkmrhwzhzOljgvgDmdonevl21-93-0516Hyuax score [AUDIT-C]0 09/10/2025 10:17 AM EDT AshleyDanae Martinez [facility]09-04-2025Patient Health Questionnaire 2 item (PHQ-2) [Reported][facility] HospitalTlrhjbtdct82-77-0550Jqrov score [AUDIT-C]1 12/29/2024 10:25 PM EST Mychart, GenericNOMS Gguokcwxbe57-93-5560Anh often do you have a drink containing alcohol?Monthly or less 12/29/2024 10:25 PM EST Mychart, Generic Monthly or lessNOMS Gqhhwtpjgw18-64-9619Txpndsxyca status Patient does not drink 12/29/2024 10:25 PM EST Mychart, Generic Patient does not drinkNOCrossroads Regional Medical CenterIpiwhqenpo65-37-4026Lwg often do you have 6 or more drinks on 1 occasion?Never 12/29/2024 10:25 PM EST Mychart, Generic NeverNOMS [facility] 08-20-6848Gircxvl Health Questionnaire 2 item (PHQ-2) [Reported][facility] 88-96-6336Crmxsgynnu StatusN/[facility]03-08-2023Functional StatusN/[facility]02-04-2023Functional StatusN/[facility]01-02-2023Functional StatusN/[facility] 07-14-2022N/[facility] Clinical Notes 04-18-2022 to 10-06-2025 Note Date & KecgVjzyCgafemwn30-86-5691 History of Present illness Narrative* Chivo Springer PA-C - 10/06/2025 2:30 PM EST Maternal- Medicine Consultation VIDEO Patient is present at work, provider present at [facility] HISTORY OF PRESENT ILLNESS: Juhi Naidu Valetiana [...] values to us weekly by e-mail to: [email or web address] or by fax to: [phone] Chivo Springer PA-C Maternal- Medicine Office phone: [phone] Chivo Springer PA-C 10/06/25 1606 documented in this encounterOhioHealth Southeastern Medical Center11-10-2025 Miscellaneous Notes* Telephone Encounter - Anjana Davalos RN - 10/05/2025 2:39 PM EST Left message for patient to send in blood sugar logs prior to video visit toady in [facility] at 3 PM. Also, Instructed patient to contact [facility] if unable to keep appointment today at [facility], then to call at [phone] option 1 to reschedule. documented in this encounterOhioHealth Southeastern Medical Center11-10-2025 Telephone encounter Note* Telephone Encounter - Anjana Davalos RN - 10/05/2025 2:39 PM EST Left message for patient to send in blood sugar logs prior to video visit toady in [facility] at 3 PM. Also, Instructed patient to contact [facility] if unable to keep appointment today at [facility], then to call at [phone] option 1 to reschedule. [facility]11-05-2025 History of Present illness Narrative* [...] to check FSBS. Blood Glucose Monitoring Suppl ([employer] Glucometer) w/Device kit 1 kit, Does not [...] John San infection GDM (gestational diabetes mellitus) ([facility]) Headache History of menstrual cramps ([facility]) Varicella zoster Visual impairment HISTORY PAST MEDICAL HISTORY SOCIAL HISTORY Past Medical History: Diagnosis Date Amenorrhea d/t oral contraceptive pills Endometriosis John San infection GDM (gestational diabetes mellitus) ([facility]) Headache History of menstrual cramps severe Hypertension ([facility]) x1 Varicella zoster unsure Visual [...] History: Procedure Laterality Date APPENDECTOMY 05/[address] [facility] 12/2022 retained placenta DISTAL [...] nursing note reviewed. Exam conducted with a barge hand present. Vitals: Estimated body mass index is 30.36 kg/m as calculated from the following: Height as of 07/30/25: 5' 2 . Weight as of this encounter: 166 lb. BP: 140/82 Patient's last menstrual period was 02/21/2025. Assessment/Plan ICD-10-CM 1. Third trimester ([facility]) Z34.93 POCT urinalysis dipstick manually resulted 2. 31 weeks gestation of ([facility]) Z3A.31 3. Pre-eclampsia in third trimester ([facility]) O14.93 Return OB: Patient presents today [...] of: Nathan Pop DO documented in this encounterPike County Memorial HospitalGtwpkkfsbx67-69-2769 Miscellaneous Notes* Telephone Encounter - Cha Harris [...] change for this week. documented in this encounterOhioHealth Southeastern Medical Center11-03-2025 Telephone encounter Note* Telephone Encounter [...] this new insulin change for this week. [facility]10-27-2025 Miscellaneous Notes* Telephone Encounter - [...] blood sugar logs weekly. documented in this [facility]10-27-2025 Telephone encounter Note* Telephone Encounter [...] to send in blood sugar logs weekly. [facility] [employer] Nterui35-87-4471 History of Present illness Narrative* Chivo Springer PA-C - 09/21/2025 12:28 PM EDT Insulin dose increased due to elevated fastings. Chivo Springer PA-C 09/21/25 1229 documented in this encounterOhioHealth Southeastern Medical Center10-22-2025 Miscellaneous Notes* Telephone Encounter - [...] blood sugars next week. documented in this encounterOhioHealth Southeastern Medical Center10-22-2025 Telephone encounter Note* Telephone Encounter [...] send in new blood sugars next week. [facility]10-22-2025 History of Present illness Narrative* [...] John San infection GDM (gestational diabetes mellitus) ([facility]) Headache History of menstrual cramps ([facility]) Varicella zoster Visual impairment HISTORY PAST MEDICAL HISTORY SOCIAL HISTORY Past Medical History: Diagnosis Date Amenorrhea d/t oral contraceptive pills Endometriosis John San infection GDM (gestational diabetes mellitus) ([facility]) Headache History of menstrual cramps severe Hypertension ([facility]) x1 Varicella zoster unsure Visual impairment [...] History: Procedure Laterality Date APPENDECTOMY 05/[address] [facility] 12/2022 retained placenta DISTAL [...] nursing note reviewed. Exam conducted with a barge hand present. Vitals: Estimated body mass index is 29.78 kg/m as calculated from the following: Height as of 25: 5' 2 . Weight as of this encounter: 162 lb 12.8 oz. BP: 120/80 Patient's last menstrual period was 02/21/2025. Assessment/Plan ICD-10-CM 1. 29 weeks gestation of ([facility]) Z3A.29 POCT urinalysis dipstick manually resulted 2. Third trimester ([facility]) Z34.93 POCT urinalysis dipstick manually resulted 3. Hypertension affecting , antepartum ([facility]) O16.9 4. Gestational diabetes mellitus (GDM), antepartum, gestational diabetes method of control unspecified ([facility]) O24.419 Return OB: Patient presents today [...] and continues to report glucose log to [facility]. Follow up Ultrasound in 4 weeks. Orders Placed This Encounter Procedures POCT urinalysis dipstick manually resulted Follow Up: Patient is to return to office in 2 week for routine OB appointment. Documented by Steph Keane NP on behalf of: Nathan Pop DO documented in this encounterPike County Memorial HospitalLijkstqdoh89-71-6252 History of Present illness Narrative* Madhuri Monroy MD - 09/10/2025 11:00 AM EDT Video Visit via Real-time Synchronous Audiovisual Provider [facility] [address] [place] [address], [address] [place] [address] Patient Location: Other [place] [facility] office Patient Location Thread Pulling Machine Attendant: None Video Visit Consent Statement: I discussed [...] that there are some limitations compared to zjiv-am-rjzb evaluations. We elected to proceed. REASON FOR [...] and the other consultants, we search on [employer] and all the available care everywhere epic I did review all the imaging studies of the patient available on EMR, ordered by the primary care physician and the other outreach consultant HABITS: Patient activity no restrictions, diet [...] patient is in complete care of her software tools engineer. Patient does have ultrasound video visit scheduled with us. Thank you for allowing me to participate in Juhi Gama . If there any questions please do not hesitate to contact us. Sincerely, MADHUIR MONROY MD * Danae Ramirez RN - [...] the provider today? none documented in this encounterOhioHealth Southeastern Medical Center10-10-2025 History of Present illness Narrative* [...] Yes Have you been seen here at [facility] in a previous ? No Recent ER visits or hospitalizations? 09/03/25 [place] to r/o preeclampsia. Patient states labs WNL Bring blood sugar log or meter with you today? (Please bring them with you for every visit at [facility]) Yes Flu vaccine (Sep-January)? N/A Any [...] and the other consultants, we search on [employer] and all the available care everywhere epic I did review all the imaging studies of the patient available on EMR, ordered by the primary care physician and the other outreach consultant HABITS: Patient activity no restrictions, diet [...] checking blood glucose and remote evaluation through [facility] office until delivery. 5. Discontinue blood [...] patient is in complete care of her software tools engineer. Patient does have ultrasound video visit scheduled [...] questions or concerns. documented in this encounterOhioHealth Nelsonville Health CenterDiamond Microwave Devices Bdncru13-78-7767 History of Present illness Narrative* Steph Keane [...] meal for a total of 4times daily. ulqjzajvxb-spnhabd-savdhlqf (Fiorinal) 50-325-40 MG capsule 1 capsule, Oral, [...] San infection Headache History of menstrual cramps ([facility]) Varicella zoster Visual impairment HISTORY PAST MEDICAL HISTORY SOCIAL HISTORY Past Medical History: Diagnosis Date Amenorrhea d/t oral contraceptive pills Endometriosis John San infection Headache History of menstrual cramps severe Hypertension ([facility]) x1 Varicella zoster unsure Visual impairment [...] History: Procedure Laterality Date APPENDECTOMY 05/[address] [facility] 12/2022 retained placenta DISTAL [...] nursing note reviewed. Exam conducted with a barge hand present. Vitals: Estimated body mass index is 29.41 kg/m as calculated from the following: Height as of 25: 5' 2 . Weight as of this encounter: 160 lb 12.8 oz. BP: 170/90 Patient's last menstrual period was 02/21/2025. ASSESSMENT & PLAN ICD-10-CM 1. 27 weeks gestation of ([facility]) Z3A.27 POCT urinalysis dipstick manually resulted 2. Second trimester ([facility]) Z34.92 Documented by Steph Keane NP on behalf of: Steph Keane NP documented in this encounterPike County Memorial HospitalEriicatuif36-24-3370 Miscellaneous Notes* Telephone Encounter - Cha Harris [...] to make that appt. documented in this encounterOhioHealth Southeastern Medical Center10-07-2025 Telephone encounter Note* Telephone Encounter [...] Pt asked to be transferred to the [facility] to make that appt. [facility] [employer] Vrkjun06-30-2945 History of Present illness Narrative* Steph Keane [...] to check FSBS. Blood Glucose Monitoring Suppl ([employer] Glucometer) w/Device kit 1 kit, Does not [...] San infection Headache History of menstrual cramps ([facility]) Varicella zoster Visual impairment HISTORY [...] History: Procedure Laterality Date APPENDECTOMY 05/[address] [facility]URE[facility] 12/2022 retained placenta DISTAL [...] nursing note reviewed. Exam conducted with a barge hand present. Vitals: Estimated body mass index is 29.23 kg/m as calculated from the following: Height as of 07/30/25: 5' 2 . Weight as of this encounter: 159 lb 12.8 oz. BP: (!) 158/92 Patient's last menstrual period was 02/21/2025. ASSESSMENT & PLAN ICD-10-CM 1. 26 weeks gestation of ([facility]) Z3A.26 POCT urinalysis dipstick manually resulted 2. Second trimester ([facility]) Z34.92 Return OB: Patient presents today [...] labs and have her evaluated today at [facility]. I discussed with OB today and they are aware that patient is coming to be ev aluated. Orders Placed This Encounter Procedures POCT urinalysis dipstick manually resulted Follow Up: Patient is to return to office in 2 week for routine OB appointment. Documented by Steph Keane NP on behalf of: Steph Keane NP documented in this encounterPike County Memorial HospitalSvgdkaztor61-36-2644 Group counseling note* Group Note - Kerline [...] Face to face time was 80 minutes. [employer] Work Phone: [phone] 897-953709-29-2025 Miscellaneous Notes* Group Note - Kerline Augustin [...] was 80 minutes. documented in this encounterOhioHealth Nelsonville Health CenterRepsly Inc. [facility]–WestRxerfn58-49-2265 History of Present illness Narrative* Steph Keane [...] San infection Headache History of menstrual cramps ([facility]) Varicella zoster Visual impairment HISTORY [...] History: Procedure Laterality Date APPENDECTOMY 05/[address] [facility]URETT[facility] 12/2022 retained placenta DISTAL [...] nursing note reviewed. Exam conducted with a barge hand present. Vitals: Estimated body mass index is 27.82 kg/m as calculated from the following: Height as of 07/30/25: 5' 2 . Weight as of this encounter: 152 lb 1.9 oz. BP: 138/82 Patient's last menstrual period was 02/21/2025. ASSESSMENT & PLAN ICD-10-CM 1. 24 weeks gestation of ([facility]) Z3A.24 POCT urinalysis dipstick manually resulted 2. Second trimester ([facility]) Z34.92 POCT urinalysis dipstick manually resulted [...] on Labetalol 100mg BID. Will refer to [facility] for evaluation. Patient deniesany Headache or blurred vision. Documented by Steph Keane NP on behalf of: Nathan Pop DO documented in this encounterPike County Memorial HospitalCiwhgotsdx53-63-5182 History of Present illness Narrative* Eliceo Beltran [...] infection Headache History of menstrual cramps Hypertension ([facility]) Varicella zoster Visual impairment Objective [...] Orders: Lipid panel; Future documented in this encounterPike County Memorial HospitalOnfmizjgyr44-14-3355 History of Present illness Narrative* Christine Ravi [...] History: Procedure Laterality Date APPENDECTOMY 05/[address] [facility]URE[facility] 12/2022 retained placenta DISTAL [...] nursing note reviewed. Exam conducted with a barge hand present. Vitals: Estimated body mass index is 26.48 kg/m as calculated from the following: Height as of 12/30/24: 5' 2 . Weight as of this encounter: 144 lb 12.8 oz. BP: 120/80 Patient's last menstrual period was 02/21/2025. ASSESSMENT & PLAN ICD-10-CM 1. 20 weeks gestation of ([facility]) Z3A.20 POCT urinalysis dipstick manually resulted 2. Second trimester ([facility]) Z34.92 POCT urinalysis dipstick manually resulted [...] of: Nathan Pop DO documented in this encounterPike County Memorial HospitalRyzrtlumfz36-41-4529 History of Present illness Narrative* Steph Keane [...] San infection Headache History of menstrual cramps ([facility]) Varicella zoster Visual impairment HISTORY [...] History: Procedure Laterality Date APPENDECTOMY 05/[address] [facility]URE[facility] 12/2022 retained placenta DISTAL [...] nursing note reviewed. Exam conducted with a barge hand present. Vitals: Estimated body mass index is 26.73 kg/m as calculated from the following: Height as of 12/30/24: 5' 2 . Weight as of this encounter: 146 lb 1.9 oz. BP: 118/74 Patient's last menstrual period was 02/21/2025. ASSESSMENT & PLAN (Z34.92) Second trimester ([facility]) Plan: POCT urinalysis dipstick manually resulted, Alpha fetoprotein, maternal, Alpha fetoprotein, maternal (Z3A.17) 17 weeks gestation of ([facility]) Plan: POCT urinalysis dipstick manually resulted, Alpha fetoprotein, maternal, Alpha fetoprotein, maternal (Z36.89) Screening, , for anatomic survey ([facility]) Plan: US OB 14+ weeks anatomy [...] of: Nathan Pop DO documented in this encounterPike County Memorial [id number] History of Present illness Narrative* Steph Keane [...] San infection Headache History of menstrual cramps ([facility]) Varicella zoster Visual impairment HISTORY [...] History: Procedure Laterality Date APPENDECTOMY 05/[address] [facility] 12/2022 retained placenta DISTAL [...] nursing note reviewed. Exam conducted with a barge hand present. Vitals: Estimated body mass index is 25.24 kg/m as calculated from the following: Height as of 12/30/24: 5' 2 . Weight as of this encounter: 138 lb. BP: 122/80 Patient's last menstrual period was 02/21/2025. ASSESSMENT & PLAN ICD-10-CM 1. Second trimester ([facility]) Z34.92 POCT urinalysis dipstick manually resulted 2. 13 weeks gestation of ([facility]) Z3A.13 Return OB: Patient presents today [...] of: Nathan Pop DO documented in this encounterPike County Memorial [id number] History of Present illness Narrative* Hina Go [...] Dysmenorrhea 03/29/2023 Endometriosis 03/29/2023 Gastroparesis 03/29/2023 Hypertension ([facility]) 03/29/2023 Intractable migraine without aura and with status migrainosus ([facility]) 03/29/2023 Migraines ([facility]) 03/29/2023 Chronic pelvic pain in female 03/29/2023 Pain in female genitalia on intercourse 03/29/2023 Pain on swallowing 03/29/2023 Panic disorder ([facility]) 03/29/2023 Patellofemoral disorders, left knee 03/29/2023 Patellofemoral disorders, right knee 03/29/2023 Posterior calcaneal exostosis 03/29/2023 Scapular dyskinesis 03/29/2023 Scoliosis 03/29/2023 Seasonal allergic rhinitis due to pollen 03/29/2023 Tachycardia, paroxysmal ([facility]) 03/29/2023 Tension headache 03/29/2023 Vitamin B12 [...] History: Procedure Laterality Date APPENDECTOMY 05/[address] [facility] 12/2022 retained placenta DISTAL [...] or undercooked meat, and stay away from [facility]. Patient has also been advised to [...] by: Hina Go LPN documented in this encounterPike County Memorial HospitalXdctqolcsi94-74-5820 History of Present illness Narrative* Candis Yanes, LAYAWAY CLERK - 01/19/2025 2:50 PM EST Reason for Appointment: Patient ID: Juhi Gama is a 29 y.o. female who presents for Painful [place] Patient presents today for Consult appointment. MEDICATIONS Current Outpatient Medications Medication Instructions bnljnhptul-zxygmumaiuexb-wpozzqur 50-325-40 MG tablet 1 tablet, Oral, Every 6 hours PRN meloxicam (MOBIC) 15 mg, Oral, Daily metoprolol succinate XL (Toprol-XL) 25 MG 24 hr tablet Take 1 tablet by mouth daily ALLERGIES No Known Allergies PROBLEMS Active Ambulatory Problems Diagnosis Date Noted Acquired equinus deformity of foot 03/29/2023 Displacement of cervical intervertebral disc without myelopathy 03/29/2023 Dysmenorrhea 03/29/2023 Endometriosis 03/29/2023 Gastroparesis 03/29/2023 Hypertension ([facility]) 03/29/2023 Intractable migraine without aura and with status migrainosus ([facility]) 03/29/2023 Migraines ([facility]) 03/29/2023 Chronic pelvic pain in female 03/29/2023 Pain in female genitalia on intercourse 03/29/2023 Pain on swallowing 03/29/2023 Panic disorder ([facility]) 03/29/2023 Patellofemoral disorders, left knee 03/29/2023 Patellofemoral [...] History: Procedure Laterality Date APPENDECTOMY 05/[address] [facility] CURETT[facility] 12/2022 retained placenta DISTAL [...] nursing note reviewed. Exam conducted with a barge hand present. Vitals: Estimated body mass index is [...] patient and patient given direct extension to Legal Billing Specialist for any questions/concerns pertaining to fertility. Documented by Candis Yanes LPN on behalf of: Nathan Pop DO documented in this encounterPike County Memorial HospitalAxucogmdbf61-83-3647 History of Present illness Narrative* Eliceo Beltran [...] History: Procedure Laterality Date APPENDECTOMY 05/[address] [facility] CURETT[facility] 12/2022 retained placenta DISTAL [...] min Stress: No Stress Concern Present (12/29/2024) [place] of Occupational Health - Occupational Stress Questionnaire Feeling of Stress : Only a little Social Connections: Unknown (12/29/2024) Social Connection and Isolation Panel [NHANES] Frequency of Communication with Friends and Family: More than three times a week Frequency of Social Gatherings with Friends and Family: Once a week Attends Denominational Services: Patient declined Active Member of Clubs [...] with the patient today. Current Outpatient Medications: hsaaixxrdi-fyzgynkordqrl-yadicovy 50-325-40 MG tablet, Take 1 tablet by mouth every 6 (six) hours if needed for headaches, Disp: 20 tablet, Rfl: 0 desogestrel-ethinyl estradiol (Apri) 0.15-30 MG-MCG tablet, Take 1 tablet by mouth Daily, Disp: 21 tablet, Rfl: 12 metoprolol succinate XL (Toprol-XL) 25 MG 24 hr tablet, Take 1 tablet by mouth daily, Disp: 90 tablet, Rfl: 1 documented in this encounterPike County Memorial HospitalIreokupemn94-92-6095 History of Present illness Narrative* Virgen Steen LPN - 08/18/2024 11:00 AM EDT Reason for Appointment: Patient ID: Juhi Cope is a 29 y.o. female who presents for Well Women Visit Patient presents today for Annual Exam. MEDICATIONS Current Outpatient Medications Medication Instructions tjozoziipy-amcjqwmfdzrqa-fstdhige 50-325-40 MG tablet 1 tablet, Oral, Every [...] 03/29/2023 Pain on swallowing 03/29/2023 Panic disorder ([facility]) 03/29/2023 Patellofemoral disorders, left knee 03/29/2023 Patellofemoral [...] Headache History of menstrual cramps severe Hypertension ([facility]) x1 Varicella zoster unsure Visual impairment [...] History: Procedure Laterality Date APPENDECTOMY 05/[address] [facility]URE[facility] 12/2022 retained placenta DISTAL [...] nursing note reviewed. Exam conducted with a barge hand present. Vitals: Estimated body mass index is [...] of: Zenobia Gutierrez PA-C documented in this encounterPike County Memorial HospitalFblhtsnmhw29-12-9641 History of Present illness Narrative* Christine Ravi LPN - 07/22/2024 9:50 AM EDT Reason for Appointment: Patient ID: Juhi Cope is a 29 y.o. female who presents for Dysmenorrhea Patient presents today for Acute Visit. MEDICATIONS Current Outpatient Medications Medication Instructions pwepffinpn-cqihhvfzqqywv-ersdynrm 50-325-40 MG tablet 1 tablet, Oral, Every [...] History: Procedure Laterality Date APPENDECTOMY 05/[address] [facility] CURETT[facility] 12/2022 retained placenta DISTAL [...] nursing note reviewed. Exam conducted with a barge hand present. Vitals: Estimated body mass index is [...] of: Nathan Pop DO documented in this encounterPike County Memorial HospitalMfrwkjvewx65-30-5208 Telephone encounter Note* Telephone Encounter - Candis Garces - 04/29/2024 8:23 AM EDT Received message from admin Anna Webb to cancel surgery and all appts as pt had services elsewhere [facility]06-04-2024 Miscellaneous Notes* Telephone Encounter - Candis Garces - 04/29/2024 8:23 AM EDT Received message from admin Anna Webb to cancel surgery and all appts as pt had services elsewhere documented in this encounterOhiohealth [facility]05-31-2024 Telephone encounter Note * Telephone Encounter - Anna De Leon - 04/25/2024 1:10 PM EDT Pt got in sooner for surgery with her local aligning checker. Please cancel surgery and all pre and post op appts. [facility]05-31-2024 Miscellaneous Notes* Telephone Encounter - Anna De Leon - 04/25/2024 1:10 PM EDT Pt got in sooner for surgery with her local aligning checker. Please cancel surgery and all pre and post op appts. documented in this encounterOhiohealth [facility] Center02-15-2024 History of Present illness Narrative* Nathan Pop, [...] History: Procedure Laterality Date APPENDECTOMY 05/[address] [facility] CURETTAGE 12/2022 retained placenta DISTAL [...] nursing note reviewed. Exam conducted with a barge hand present. Vitals: Estimated body mass index is [...] of: Nathan Kiesha, DO documented in this encounterPike County Memorial HospitalLwqjjxyoug75-25-2683 Miscellaneous Notes* Telephone Encounter - Pippa Simon [...] mg tablet Class: Normal Route: ORAL Order: [id number] E-Prescribing Status: Receipt confirmed by pharmacy (05/17/2023 [...] that may recur and often requires a intermediate treatment plan. Once endometriosis is identified, there [...] Center 05/20/2024 10:00 AM [facility]24 10:30 AM Charlene Rodriguez DO [facility] Appointment scheduled: As listed above Action taken: Refill request routed to clinician Pippa Simon RN January 03, 2024 4:29 PM * Telephone Encounter - Alena Tracy - 01/02/2024 3:52 PM EST Patient: Juhi Cope : 1995 Provider: Charlene Rodriguez DO Caller Phone #: [phone] (home) [phone] (cell) Reason for call: b/c refill Message routed to nurse triage Date of next visit: MEGAN: 12/10/2023 documented in this encounterOhiohealth Southeastern Medical Center01-15-2024 NoteHNO ID: [id number] Author: CHARLENE RODRIGUEZ DO Service: ? 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 Where to find more information [employer]: www.heart.org Contact a health care [...] provider. Document Revised: 07/27/2022 Document Reviewed: 07/27/2022 Mob[employer] Patient Education 2022 AppSocially. 09/12/2023 18:18:13 Hypertension, Adult, Tery-jn-Gifd Hypertension, Adult Hypertension is another name for [...] doctor. Keep all follow-up visits. Medicines Take ihjt-mtz-osfahqr and prescription medicines only as told by [...] provider. Document Revised: 08/31/2022 Document Reviewed: 08/31/2022 Mob.[employer] Patient Education 2022 AppSocially. 09/12/2023 18:18:13 General Headache Without Cause, Ltvh-oo-Hfzy General Headache Without Cause A headache is pain or discomfort you feel around the head or neck area. There are many causes and types of headaches. In some cases, the cause may not be found. Follow these instructions at home: Watch your condition for any changes. Let your doctor know about them. Take these steps to help with your condition: Managing pain Take over-quq-ylbnwtc and prescription medicines only as told by [...] provider. Document Revised: 04/12/2022 Document Reviewed: 04/12/2022 Mob.[employer] Patient Education 2022 AppSocially. Follow Up Care 09/12/2023 17:21:57 With:DENNY RODRÍGUEZ Address: [address] [place] [address] Business (1) When:09/15/2023 18:03:37 Comments:Follow-up with your primary care provider in 3 to 5 days. If symptoms worsen, do not improve, or new symptoms arise please report back to emergency department for further evaluation. [facility]10-18-2023 Evaluation + Plan noteExtracted from: Title:ED [...] date 09/12/23 18:02:00 EDT, 09/12/23 18:02:00 EDT [facility]10-16-2023 Instructions* Patient Instructions* Jihan Downs APRN.CNP - 09/10/2023 9:52 AM EDT Plan: Trial baclofen suppositories - can switch to pill vaginally if suppositories are not affordable Consider Pelvic floor physical therapy - can find local provider [email or web address] Consider going back to see Dr Kuldip Downs APRN.CNP documented in this encounterOhiohealth [facility]heastern [facility] Center10-05-2023 NoteHNO ID: [id number] Author: Charlene Rodriguez DO Service: ? Author Type: Physician Type: Progress Notes Filed: 08/30/2023 11:15 AM Note Text: Tramadol rx sent to pharmacy.[facility] History of Present illness Narrative* Charlene Rodriguez DO - 08/30/2023 11:13 AM EDT Tramadol rx sent to pharmacy. documented in this encounterOhiohealth Southeastern Medical Center10-05-2023 Miscellaneous Notes* Telephone Encounter - Chelsie Dueñas RN - 08/30/2023 10:50 AM EDT Last office visit: 08/24/2023 Assessment and Plan No diagnosis found. Trial baclofen suppositories Will send list of PTs Consider going back to Kuldip SIGNATURE: Jihan Downs APRN.CLINICAL SYSTEMS EDUCATOR Office visit with Dr. Rodriguez 07/16/2023 IMPRESSION: [...] Charlene Rodriguez DO documented in this encounterOhiohealth Southeastern [facility] Center09-29-2023 NoteHNO ID: [id number] Author: Jihan Downs APRN.ANA LAURA Service: ? Author Type: Nurse Practitioner Type: Progress Notes Filed: 09/10/2023 9:53 AM Note Text: [facility] [place] Department of Benign Gynecology [facility] PATIENT NAME: Juhi Cope DATE: 08/24/2023 Patient Name and verified: Yes Patient Location: [place] This Virtual Visit was completed using My Chart Zoom platform. I have communicated my name and active licensure. The patient's identity and physical location were verified at the time of this visit. Either the patient or their legal advertising sales representative has been informed of the [...] appointment yet. 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 History LMP: 07/08/2023 (Exact Date), Having periods Age at Menarche: 14 Age at First : 27 Age at Menopause: Entry Level Marketing Representative History Comments: Sexual Activity: Never; No partner [...] toxic appearing HEENT nor (more content not included)...[facility] History of Present illness Narrative* Jihan Downs APRN.CLINICAL SYSTEMS EDUCATOR - 08/24/2023 9:24 AM EDT Images from the original note were not included. [facility] [place] Department of Benign Gynecology [facility] PATIENT NAME: Juhi Cope DATE: 08/24/2023 Patient Name and verified: Yes Patient Location: [place] This Virtual Visit was completed using My Chart Zoom platform. I have communicated my name and active licensure. The patient's identity and physical location wereverified at the time of this visit. Either the patient or their legal advertising sales representative has been informed of the [...] appointment yet. 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 History LMP: 07/08/2023 (Exact Date), Having periods Age at Menarche: 14 Age at First : 27 Age at Menopause: Entry Level Marketing Representative History Comments: Sexual Activity: Never; No partner [...] to see Dr Rodriguez SIGNATURE: Jihan Downs, JAMI.CLINICAL SYSTEMS EDUCATOR Medical Decision Making: Problems: Low: Stable chronic illness Risk: Moderate: Drug management Medical Decision Making Level: 3 - Low documented in this encounterOhiohealth Southeastern Medical Center09-22-2023 Miscellaneous Notes* Telephone Encounter - [...] Provider: Charlene Rodriguez DO Caller Phone #: [phone] (home) [phone] (cell) Reason for call: pt calling regarding mc message., still in pain. Please call [phone] Message routed to nurse triage Date of next visit: documented in this encounterOhiohealth Southeastern Medical Center09-07-2023 Miscellaneous Notes* Telephone Encounter - Candis Suárez RN - 08/02/2023 11:29 AM EDT PA for orilissa completed via [employer] [facility]. Juhi Cope (Morales: [id number]) - [phone] Orilissa 150MG tablets Status: Sent To Plan [...] Please advise. Thanks. documented in this encounterOhiohealth Southeastern Medical Center08-21-2023 NoteHNO ID: [id number] Author: Charlene Rodriguez DO Service: ? 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 Author Type: Slot Service Specialist Type: Progress Notes Filed: 06/12/2023 4:32 [...] BY: RT Claudia(Bryant) June 12, 2023 4:32 PMCJoint Township District [facility]07-18-2023 NoteHNO ID: [id number] Author: Boo Singh RN Service: Nursing Author [...] Cope DATE: June 12, 2023 TIME: 1:43 [facility]06-22-2023 NoteHNO ID: [id number] Author: Charlene Rodriguez, DO Service: ? 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 Charlene Rodriguez DO Tt: 20 minutesMemorial Hospital06-22-2023 History of Present illness Narrative* Charlene Rodriguez DO - 05/17/2023 1:05 PM EDT Images from the original note were not included. 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 Biggest complaint is cramping. Has had 3 periods of bleeding recently - 04/22/2023 LMP, last a few days, 05/04-05/10 bleeding again 05/11/2023 started again today. Takes aygestin 5mg daily. 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 Encourage to pick up and delivery driver the flexeril as this will help with the cramping. Reviewed red flag bleeding symptoms that require trip to ER (soaking greater than one overnight padper hour, chest pain, shortness of breath, fatigue, palpitations).. Advised keep appt. Gives verbal understanding. Appointments for Next 60 Days Date Time Provider Location Dept Phone 05/17/2023 1:00 PM CHARLENE RODRIGUEZ [facility] [phone] Candis Suárez RN * Telephone Encounter - Tawana Nair [facility] - 05/11/2023 1:19 PM EDT Reason for call: other - Vaginal bleeding Provider name: Dr Rodriguez Additional comments: patient having more vaginal bleeding and concerned she is getting worse. Recommendation: routed to nurse triage pool documented in this encounterOhiohealth Southeastern [facility] Center06-06-2023 Instructions* Patient Instructions* Jihan Downs APRN.ANA LAURA - 05/01/2023 11:47 AM EDT Plan Pelvic floor physical therapy - or can go locally [facility] Trial flexeril at bedtime Can consider [...] pain society ([email or web address].org) documented in this encounterOhiohealth Southeastern Medical Center06-06-2023 History of Present illness Narrative* Jihan Downs APRN.ANA LAURA - 05/01/2023 10:30 AM EDT Juhi Cope is a 28 year old female who presents for problem visit for pain HPI: Pain is week before period and week of period. Worse on her period for every day she's bleeding Urinary - No symptoms GI - Always constipated. 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 Author Type: Nurse Practitioner Type: Progress Notes Filed: 05/09/2023 11:46 AM Note Text: Juhi Cope is a 28 year old female who presents for problem visit for pain HPI: Pain is week before period and week of period. Worse on her period for every day she's bleeding Urinary - No symptoms GI - Always constipated. 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 History LMP: 03/26/2023 (Approximate), Having periods Age at Menarche: Age at First : Age at Menopause: Entry Level Marketing Representative History Comments: Sexual Activity: Never; No partner [...] physical therapy - or can go locally [employer] Trial flexeril at bedtime Can consider Baclofen [...] management Medical Decision Making Level: 4 - ModerateMemorial [facility] Miscellaneous Notes* Telephone Encounter - Marilee [...] Lucila Foss RN [facility] Discharge instructions Patient Education 01/31/2023 18:59:59 [...] told by your health care provider. Take qqry-gig-lwhstxg and prescription medicines only as told by [...] 01/03/2007 Document Revised: 10/25/2018 Document Reviewed: 01/25/2018 [employer] Patient Education 2020 AppSocially. Follow Up Care 01/31/2023 13:43:01 With:Denny Meza Address:Unknown When:02/03/2023 18:59:31 Comments:Follow-up for evaluation of hypertension in context of known preeclampsia in the period With:DENNY RODRÍGUEZ [facility] [place] [address]- Business (1) When:Within 3 Day(s) [facility]03-08-2023 Evaluation + Plan noteExtracted from: Title:ED NoteAuthor:Mayur Mabry PA-C CDate:01/31/23 Flank pain (R10.9: Unspecifi ed abdominal pain) Headache (R51.9: Headache, unspecified) Orders: CTA Chest Hepatic Function Panel [facility]02-04-2023 Hospital Discharge instructions Patient Education 12/30/2022 13:59:51 [employer] - Post D&C, Hysteroscopy, LEEP or Essure/Laparoscopy [...] - FT (Custom) (Custom) 12/30/2022 13:55:16 [employer] - Post D&C, Hysteroscopy, LEEP or Essure/Laparoscopy [...] Address: [address], [place] [address] [place] [address]- Business (1) When: Unknown Comments:follow up in 1-2 weeks With:DENYN RODRÍGUEZ Address: [address] [place] [place] [address]- Business (1) When:01/02/2023 09:21:18 [facility]02-04-2023 Evaluation + Plan noteExtracted from: Title:ANES [...] from:Title:ANES Pre-operative NoteAuthor:Kenneth Agustin MDDate: 12/30/22 Plan [place] [employer] of Anesthesiologists (ASA) physical status classification: [...] With Cult Reflex US Pelvis Non-OB Complete [facility]01-10-2023 History of Present illness Narrative* Tory [...] Ross MD - 12/05/2022 3:19 PM EST [facility]: This patient was seen in the [facility] by the resident. I reviewed and agree with the care provided by the resident during or immediately following the visit including the patient's medical history, the resident's finding in the physical exam, patient's diagnosis and treatment plan. documented in this [facility]01-07-2023 NoteDepartment of Obstetrics and Gynecology Delivery Discharge Summary Admission on 11/28/2022 12:24 AM Hospital course: Juhi Cope at 35w1d admitted as a transfer from [facility] for [facility]. She was started on Magnesium there [...] Information for the patient's : Francie Cope [[id number]] female 2425 g (5 lb 5.5 oz) Apgars: Information for the patient's : Francie Cope [[id number]] : Infant: Girl Blood Type/Rh: O Antibody [...] Your Medications These medications were sent to [facility] [address] [place], [place] [id number] Hours: Sunday to Sunday 10 am to 6 pm docusate sodium 100 MG capsule ibuprofen 600 MG tablet NIFEdipine XL 30 MG 24 hr tablet Activity: Activity as tolerated Diet: Regular diet Follow-up Appointments: - visit - Blood pressure check If a patient meets criteria for hypertension, make sure the following are done prior to discharge: [] Order a blood pressure kit through [facility] (or the patient's own pharmacy on the weekend) [] Order the blood pressure log through OnlineSheetMusic [x] Place an office visit or telephone [...] notify her physician if any of these occur.[facility]01-07-[facility] History of Present illness Narrative* Anna Booth [...] with more than 50% of the total rvkv-tj-nmfd time of the visit in counseling/coordination of [...] be monitored and followed by the diet scada technician. CRISS Oshea * Alejandra Arcos RN [...] and reassuring. CCM. Cx:/-3 FHT: Cat 1 Nibbe:q3-4 min A/P: 1. IOL-PreEwSF. FHT 130 baseline, with moderate variability, Accelerations present Yes, and rare late deceleration . Cervical exam unchanged. Cytotec x4 placed at this time. Patient intermittently feeling contractions. BP mild range. Cx: 1-/-3 FHP: defer FHT: Cat I Nibbe: a3-4min A/P: 1. IOL-PreEwSF: FHT Category I, [...] Cx: unchanged FHP: defer FHT: Cat I Nibbe: q4min A/P: 1. IOL-PreEwSF: FHT Category I, [...] 11/29/2022 6:17 AM Cx:1-2/60/-3 FHT: Cat I Nibbe:q4-5mins A/P: 1. IOL-PreEwSF: Cat I FHT with [...] per protocol. CCM. Cx:defer FHT: Cat I Nibbe:q4-6mins A/P: 1. IOL-PreEwSF: Cat I FHT with baseline 120, moderate variability, spontaneous accelerations, and no decelerations. BP normotensive to mild range since last note time. Pitocin @ 2 cc/hr, continue to titrate per protocol. Magnesium sulfate running for seizure prophylaxis, UOP 400 ml over past 4hours. CCM. Cx:defer FHT: Cat I Nibbe:q4-5mins A/P: 1. IOL-PreEwSF: Cat I FHT with baseline 135, moderate variability, spontaneous accelerations, and no decelerations. BP normotensive to mild range since last note time. Pitocin @ 6 cc/hr, continue to titrate per protocol. Magnesium sulfate running for seizure prophylaxis, UOP 600 ml over past 4hours. Will plan for AROM soon. CCM. Cx:defer FHT: Cat I Nibbe:irritability A/P: 1. IOL-PreEwSF: Pit @ 8 mu/min. Patient resting comfortably and only irritability tracing on toco. BP most recently mild range. On magnesium sulfate for seizure prophylaxis. UOP adequate. Continue magnesium and continue to titrate pitocin per protocol. Plan for AROM once patient rudi more regularly. Electronically signed by Cortney Velasquez DO 11/29/2022 4:21 PM Cx:470/-3 FHT: Cat 1 Nibbe:Not tracing A/P: 1. IOL-PreEwSF. FHT 135 baseline, with moderate variability, Accelerations present Yes, and nodecelerations seen . AROM at this time for moderate amount blood tinged fluid. Pitocin at 8cc/hr. Maternal BP mild range. On Magnesium for Seizure prophylaxis. Patient with adequate urinary output. CCM. Cx: defer FHP: defer FHT: Cat II Nibbe: not tracing well A/P: 1. IOL-PreEwSF: FHT [...] per RN FHP: defer FHT: Cat II Nibbe: q4min A/P: 1. IOL-PreEwSF: FHT Category II [...] delivery note for details documented in this [facility]01-07-2023 Hospital course Narrative* César Tran DO - 12/02/2022 12:32 PM EST Images from the original note were not included. Department of Obstetrics and Gynecology Delivery Discharge Summary Admission on 11/28/2022 12:24 AM Hospital course: Juhi Cope at 35w1d admitted as [facility] She was started[facility] Magnesium [facility] and transported [...] Information for the patient's : Francie Cope [[id number]] female 2425 g (5 lb 5.5 oz) Apgars: Information for the patient's : Francie Cope [[id number]] : : Girl Blood Type/Rh: O Antibody [...] Your Medications These medications were sent to [facility] [address] [place] [address] Hours: Sunday to Sunday 10 am to 6 pm docusate sodium 100 MG capsule ibuprofen 600 MG tablet NIFEdipine XL 30 MG 24 hr tablet Activity: Activity as tolerated Diet: Regular diet Follow-up Appointments: - visit - Blood pressure check If a patient meets criteria for hypertension, make sure the following are done prior to discharge: [] Order a blood pressure kit through [facility] (or the patient's own pharmacy on the weekend) [] Order the blood pressure log through OnlineSheetMusic [x] Place an office visit or telephone [...] any of these occur. documented in this [facility]01-06-2023 Note* Care Coordination - Christine Michelle [...] home. Denies any concerns at this time. [facility] CenterZlbjhr08-43-4821 Note* Care Coordination - Christine Michelle RN [...] home. Denies any concerns at this time. [facility] CenterEvogcv07-83-0938 Miscellaneous Notes* Care Coordination - Christine Michelle [...] for this pt. Due to: in [facility] Hospital breast pump, supplies kit, swabs [...] patient to check with LC in [facility] for smaller flange sizes * L&D Delivery Note - Irina Kramer DO - 11/30/2022 4:04 AM EST Images from the original note were not included. Vaginal Delivery Note Department of Obstetrics and Gynecology Patient: Juhi Cope : 1995 Date of delivery: 11/30/2022 Pre-operative Diagnosis: Juhi Mojica0 at 35w1d 1. <37 weeks 2. PreEwSF Post-operative Diagnosis: Live Born female Delivering Certified Executive Chef & Bending Machine Operator(s): Dr. Bowden; Dr. Kramer Information: Information for the patient's : Francie Cope [[id number]] Information for the patient's : Francie Cope [[id number]] Description: normal Meconium Noted: No Anesthesia: epidural [...] change. Clotilde Mg RN documented in this [facility]01-06-2023 Obstetrics Note* Note - Ligia Bridges RN - 12/01/2022 9:00 AM EST 22.5mm flanges given to patient. Encouraged her to call for observation of pump session and smallerflanges. Martha in NICU to assist with personal pump. [facility] [id number] Hospital Discharge instructions* Discharge Instructions* Carol Bowden [...] 8 weeks after delivery. Bleeding may pick up and delivery driver and then decrease again around 7-10 days [...] avoid constipation you may take a mild shij-ucp-eyccxpd stool softener (such as colace) as recommended [...] positive or a Person Under Investigation (PUI) Zisamf-ll-ulaks transmission of COVID-19 during is unlikely, but after a baby is susceptible to zrudau-qt-ninnio spread. After your baby is born, your [...] clean your hands with an alcohol-based hand mounter smoking pipe that contains at least 60% alcohol. Clean your hands often Wash your hands often with soap and water for at least 20 seconds, especially after blowing your nose, coughing, or sneezing; going to the bathroom; and before eating or preparing food. If soap and water are not readily available, use an alcohol-based hand mounter smoking pipe with at least 60% alcohol, covering all [...] isolation precautions should be made on a elcw-ea-hphf basis, in consultation with healthcare providers and [...] respiratory tract signs and symptoms. Ways to [place] with Anxiety & Stress It is normal [...] an illness that was first found in [facility], in October 2019. It has [...] seen in people before. This virus spreads jbgrlf-rd-ahsndn through droplets from coughing and sneezing. It [...] water aren't available, use an alcohol-based hand mounter smoking pipe. Call 911 anytime you think you may [...] of: February 25, 2020 Content Version: 12.4 [place]. Care instructions adapted under license by your [...] handles, desks, toilets, faucets, sinks) with household business segment manager and EPA-registered disinfectants that are appropriate [...] appropriate. These supplies include tissues, paper towels, business segment manager and EPA-registered disinfectants (see list link at [facility] website). If a separate bathroom is [...] be used for other purposes. Consult the food service substitute's instructions for cleaning and disinfection products used. [...] used if appropriate for the surface. Follow food service substitute's instructions for application and proper ventilation. Check [...] for harder to kill viruses. Follow the food service substitute's instructions for all cleaning and disinfection products (e.g., concentration, application method and contact time, etc.). Soft (porous) surfaces such as carpeted floor, rugs, and drapes Remove visible contamination if present and clean with appropriate business segment manager indicated for use on these surfaces. After cleaning: Launder items as appropriate in accordance with the food service substitute's instructions. If possible, launder items using the [...] items as appropriate in accordance with the food service substitute's instructions. If possible, launder items using the warmest appropriate water setting for the items and dry items completely. Dirty laundry from an ill person can be washed with other people's items. Clean and disinfect clothes hampers according to guidance above for surfaces. If possible, considerplacing a garbage collection supervisor that is either disposable (can be thrown away) or can be laundered. [facility]ED [facility] has a list of EPA approved cleaning products on their website - https://www.cdc.gov/coronavirus/ 2019-ncov/community/home/cleaning-disinfection.html https://www.[employer]/Kmwbb-Cvwlxceagrm-Cdxhqgqb-Products-List.pdf [employer] with delivery and pick up and delivery driver services: [employer]: Free pick up and delivery driver at locations Delivery is $12.95 a month Website - [employer] [place]: Compliance And Control Analyst $2.95 (1st order is free) Delivery is $14.95 Website - [employer] [place]: molding supervisor is free Delivery is $5.95 Website [employer]: molding supervisor is $4.95 Delivery is $9.95 Website [employer]: molding supervisor is $4.95 Delivery is $9.95 Website [employer]: Can be ordered for delivery and pick up and delivery driver with weartolook Website - www.[employer]: Free deliver for first 3 orders of $35 or more Website - aldiOpenCounter Will deliver from [employer], [employer], [employer], and [employer]. Annual membership is $99 Monthly membership is $14 * Attachments The following attachments cannot be sent through Care Everywhere. * Preeclampsia Discharge Instructions (Ethiopian) documented in this [facility]01-05-2023 Obstetrics Note* Note - Sheila Harrell RN - 11/30/2022 10:37 AM EST Swabs given to patient and educated how to use and to bring to [facility] [id number] Obstetrics Note* Note - Sheila Harrell RN - 11/30/2022 10:30 AM EST Breast pump use indicated for this pt. Due to: in [facility] Hospital breast pump, supplies kit, swabs [...] Told patient to check with in [facility] for smaller flange sizes [facility] [id number] NotePatient: Juhi Cope Procedure Summary Date: 11/29/22 [...] once all PACU criteria has been met.[facility]01-05-2023 NotePatient: Juhi Cope Procedure Summary Date: 11/29/22 [...] opportunity for questions and acknowledgement of understanding.[facility]01-05-2023 Labor and delivery summary note* L&D Delivery Note - Irina Kramer DO - 11/30/2022 4:04 AM EST Images from the original note were not included. Vaginal Delivery Note Department of Obstetrics and Gynecology Patient: Juhi Cope : 1995 Date of delivery: 11/30/2022 Pre-operative Diagnosis: Juhi Sidhu at 35w1d 1. <37 weeks 2. PreEwSF Post-operative Diagnosis: Live Born female Delivering Certified Executive Chef & Bending Machine Operator(s): Dr. Bowden; Dr. Kramer Information: Information for the patient's : Francie Cope [[id number]] Information for the patient's : Francie Cope [[id number]] Description: normal Meconium Noted: No Anesthesia: epidural [...] surgery as described in the resident note. [facility] CenterHtakwa79-05-3657 NoteEpidural Block Time Out: 11/29/2022 6:17 PM Patient location during procedure: OB Start time: 11/29/2022 6:18 PM End time: 11/29/2022 6:45 PM Reason for block: labor analgesia Staffing Performed: INTERCEPTOR OPERATOR Resident/INTERCEPTOR OPERATOR: Jimmie Kaur APRN - INTERCEPTOR OPERATOR Preanesthetic Checklist Completed: patient identified, IV [...] tolerated procedure well with no immediate complicationsMcLaren [facility]01-04-2023 Plan of care note* Care Plan - Clotilde Mg RN - 11/29/2022 7:45 AM EST The patient will continue to make cervical change. Clotilde Mg RN [facility] CenterDkpvbf50-08-1894 NotePatient: Juhi Cope Procedure Information Date: 11/28/22 [...] patient is not NPO Additional Equipment RequestsMcLaren [facility]01-03-2023 NoteLabor Progress Note Date: 11/28/2022 Time: 2:14 [...] and reassuring. CCM. Cx:-3 FHT: Cat 1 Nibbe:q3-4 min A/P: 1. IOL-PreEwSF. FHT 130 baseline, with moderate variability, Accelerations present Yes, and rare late deceleration . Cervical exam unchanged. Cytotec x4 placed at this time. Patient intermittently feeling contractions. BP mild range. Cx: 1--3 FHP: defer FHT: Cat I Nibbe: a3-4min A/P: 1. IOL-PreEwSF: FHT Category I, [...] Cx: unchanged FHP: defer FHT: Cat I Nibbe: q4min A/P: 1. IOL-PreEwSF: FHT Category I, [...] 11/29/2022 6:17 AM Cx:1-2/60/-3 FHT: Cat I Nibbe:q4-5mins A/P: 1. IOL-PreEwSF: Cat I FHT with [...] per protocol. CCM. Cx:defer FHT: Cat I Nibbe:q4-6mins A/P: 1. IOL-PreEwSF: Cat I FHT with baseline 120, moderate variability, spontaneous accelerations, and no decelerations. BP normotensive to mild range since last note time. Pitocin @ 2 cc/hr, continue to titrate per protocol. Magnesium sulfate running for seizure prophylaxis, UOP 400 ml over past 4 hours. CCM. Cx:defer FHT: Cat I Nibbe:q4-5mins A/P: 1. IOL-PreEwSF: Cat I FHT with baseline 135, moderate variability, spontaneous accelerations, and no decelerations. BP normotensive to mild range since last note time. Pitocin @ 6 cc/hr, continue to titrate per protocol. Magnesium sulfate running for seizure prophylaxis, UOP 600 ml over past 4 hours. Will plan for AROM soon. CCM. Cx:defer FHT: Cat I Nibbe:irritability A/P: 1. IOL-PreEwSF: Pit @ 8 mu/min. Patient resting comfortably and only irritability tracing on toco. BP most recently mild range. On magnesium sulfate for seizure prophylaxis. UOP adequate. Continue magnesium and continue to titrate pitocin per protocol. Plan for AROM once patient rudi more regularly. Electronically signed by Cortney Velasquez DO 11/29/2022 4:21 PM Cx:/-3 FHT: Cat 1 Nibbe:Not tracing A/P: 1. IOL-PreEwSF. FHT 135 baseline, with moderate variability, Accelerations present Yes, and no decelerations seen . AROM at this time for moderate amount blood tinged fluid. Pitocin at 8cc/hr. Maternal BP mild range. On Magnesium for Seizure prophylaxis. Patient with adequate urinary output. CCM. Cx: defer FHP: defer FHT: Cat II Nibbe: not tracing well A/P: 1. IOL-PreEwSF: FHT Category II for brief period of lates vs early deceleration (more content not included)...[facility]01-03-2023 NoteObstetrical History and Physical CHIEF COMPLAINT: SUH [...] 34w6d Is this patient being delivered between 71m1c-64t5p weeks with an acceptable medical indication (obstetric, maternal, and/or )? NA: Not Applicable: This patient is being delivered outside of the PC-01 range (76b5u-74h7c) for reasons indicated in the medical record. [...] Prophylaxis: Not Indicated (more content not included)...[facility]01-03-2023 History and physical note* Cassie Constantino MD [...] 34w6d Is this patient being delivered between 67k0h-20t1d weeks with an acceptable medical indication (obstetric, maternal, and/or )? NA: Not Applicable: This patient is being delivered outside of the PC-01 range (16h3i-53o8m) for reasons indicated in the medical record. [...] plan. Cassie Constantino MD 11/28/2022, 12:48 AM [facility] CenterTcoxfo20-11-0959 History and physical note* Cassie Constantino MD [...] 34w6d Is this patient being delivered between 63z4d-50t7f weeks with an acceptable medical indication (obstetric, maternal, and/or )? NA: Not Applicable: This patient is being delivered outside of the PC-01 range (29k7o-04m5d) for reasons indicated in the medical record. [...] MD 11/28/2022, 12:48 AM documented in this [facility]01-02-2023 Evaluation + Plan note Extracted from:Title:OB High Risk Antepartum Visit *Author:Fredi DORSEY MD Date:11/27/22 Impression and Plan Diagnosis 34 weeks 5 days. Preeclampsia. contractions. Maternal tachycardia.. Course: Worsening, New onset headache may be a signal of worsening symptoms of preeclampsia.. Orders I discussed this case with the maternal- medicine department at [facility] in [facility], Dr. Thea Nieves, she accepted to transfer due to preeclampsia. Plan: Magnesium sulfate per protocol, betamethasone, transfer arrangements are in progress..[facility]08-19-2022 Evaluation + Plan note Extracted from:Title:ED [...] and Proctofoam and follow-up with her [employer] physician in the outpatient setting. She is provided with a note for work. Additional diagnosis: Constipation, UTI and [facility]08-19-2022 Hospital Discharge instructions Follow Up Care 07/14/2022 06:07:36 With:Denny Meza Address:Unknown When:07/17/2022 07:24:48 With:DENNY RODRÍGUEZ Address: [address] [place] [place] [address] Business (1) When:Within 3 Day(s) [facility]08-19-2022 Hospital Discharge instructions Follow Up Care 07/14/2022 04:40:16 With:Denny Meza Address: [address], [address] [place] [address]- Business (1) When:07/17/2022 Comments:Appointment has already been scheduledCall Dr if fever>100.5 F, heavy bleedingCall for any problems.Call for severe abdominal painCall physician for heavy vaginal bleedingCall physician if symptoms worsenPlease call if you need to rescheduleReturn for contractions closer, longer, harderReturn ifruptured membranes or vaginal bleeding [facility]05-31-2022 Evaluation + Plan note Diagnostic Tests Pending * Jgkzf-5-Hrlokxgmdak 04/25/22 * NIGEL w/Reflex if POS 04/25/22 * Ceruloplasmin 04/25/22 * HCV Antibody RFX to Quant PCR 04/25/22 * HBV Core Ab 04/25/22 * Hepatitis B Surface Antibody 04/25/22 * Hepatitis B Surface Antigen 04/25/22 * Smooth Muscle Antibody Screen 04/25/22 [facility]05-24-2022 Evaluation note* Encounter Date Diagnosis Assessment Notes Treatment Notes Treatment Clinical Notes March, Elevated liver function tests (I CD-10 - R79.89) LABS INDICATED ABOVE [employer] Other Evaluation note* Diagnosis Pelvic pain in female- Primary Unspecified symptom associated with female genital organs [facility]* Diagnosis Chronic pelvic pain in female- Primary Unspecified symptom associated with female genital organs Constipation, unspecified constipation type High-tone pelvic floor dysfunction Other specified disorders of female genital organs Diastasis of rectus abdominis Dysmenorrhea Other specified dyspareunia documented in this [facility]* Diagnosis Endometriosis- Primary Endometriosis, site unspecified Pelvic and perineal pain Unspecified symptom associated with female genital organs documented [facility]* Diagnosis Pelvic pain in female- Primary Unspecified symptom associated with female genital organs [facility]* Diagnosis Pelvic pain in female- Primary Unspecified symptom associated with female genital organs documented in this encounter [facility] note* Diagnosis High-tone pelvic floor dysfunction- Primary Other specified disorders of female genital organs Chronic pelvic pain in female Unspecified symptom associated with female genital organs documented in this encounter [facility] note* Diagnosis Pelvic and perineal pain Unspecified symptom associated with female genital organs documented in this encounter [facility] note* Diagnosis Menorrhagia with regular cycle Pelvic pain in female Unspecified symptom associated with female genital organs Uses control [facility] Diagnosis Preeclampsia, severe, third trimester- Primary Preeclampsia, severe, third trimester documented in this encounter [facility]* Diagnosis Pre-eclampsia, severe, delivered- Primary documented in this encounter [facility]* Diagnosis Dysmenorrhea, unspecified documented [facility]* Diagnosis Well woman exam with routine gynecological exam Routine gynecological examination [facility]* Diagnosis Hypertension, unspecified type (CMS/HCC)- Primary Paroxysmal tachycardia, unspecified (CMS/HCC) Paroxysmal tachycardia, unspecified Chronic right shoulder pain Pain in joint, shoulder region Scapular dyskinesis Lack of coordination [facility] Pain in female genitalia on intercourse Dyspareunia Endometriosis Endometriosis, site unspecified documented in this encounter [facility] HealthcareEvaluation noteNo assessment information availableOhiohealth [facility] Work Phone: Evaluation note* Diagnosis Missed menses , unspecified gestational age Encounter for supervision of normal first in first trimester [facility]* Diagnosis Nonintractable episodic headache, unspecified headache type- Primary Second trimester ([facility]) state, incidental 13 weeks gestation of ([facility]) documented [facility]* Diagnosis Sinusitis, unspecified chronicity, unspecified location- Primary Second trimester ([facility]) state, incidental 17 weeks gestation of ([facility]) Screening, , for anatomic survey ([facility]) Encounter for anatomic survey documented [facility] this [facility]* Diagnosis 20 weeks gestation of ([facility]) Second trimester ([facility]) state, incidental Diabetes mellitus screening Screening for diabetes mellitus documented in this [facility]* Diagnosis Wellness examination- Primary Hypertension, unspecified type Lipid screening Screening for lipoid disorders documented [facility]* Diagnosis Wellness examination- Primary Hypertension, unspecified type Lipid screening Screening for lipoid disorders 24 weeks gestation of ([facility]) Second trimester ([facility]) state, incidental Elevated glucose tolerance test Impaired glucose tolerance test documented in this [facility]* Diagnosis Gestational diabetes mellitus (GDM) in second trimester, gestational diabetes method of control unspecified [facility] Diagnosis Wellness examination- Primary Hypertension, unspecified type Lipid screening Screening for lipoid disorders 26 weeks gestation of ([facility]) Second trimester ([facility]) state, incidental induced hypertension, antepartum ([facility]) Transient hypertension of , antepartum Gestational diabetes mellitus (GDM) in second trimester, gestational diabetes method of control unspecified ([facility]) documented [facility]* Diagnosis Wellness examination- Primary Hypertension, unspecified type Lipid screening Screening for lipoid disorders Hypertension affecting , antepartum ([facility])- Primary 27 weeks gestation of ([facility]) Second trimester ([facility]) state, incidental documented [facility]* Diagnosis Diet controlled gestational diabetes mellitus (GDM) in second trimester- Primary Essential hypertension affecting in third trimester [facility] Diagnosis 28 weeks gestation of - Primary Insulin controlled gestational diabetes mellitus (GDM) in second trimester Essential hypertension affecting in third trimester [facility] Diagnosis Essential hypertension affecting in third trimester [facility] Diagnosis Wellness examination- Primary Hypertension, unspecified type Lipid screening Screening for lipoid disorders 29 weeks gestation of ([facility]) Third trimester ([facility]) state, incidental Hypertension affecting , antepartum ([facility]-HCC) Gestational diabetes mellitus (GDM), antepartum, gestational diabetes method of control unspecified([facility]) documented [facility]* Diagnosis Insulin controlled gestational diabetes mellitus (GDM) in third trimester- Primary Essential hypertension affecting in third trimester [facility]* Diagnosis Insulin controlled gestational diabetes mellitus (GDM) in second trimester documented [facility]* Diagnosis Insulin controlled gestational diabetes mellitus (GDM) in second trimester documented [facility]* Diagnosis Wellness examination- Primary Hypertension, unspecified type Lipid screening Screening for lipoid disorders Third trimester ([facility]) state, incidental 31 weeks gestation of ([facility]HCC) Pre-eclampsia in third trimester ([facility]CC) documented [facility]* Diagnosis Insulin controlled gestational diabetes mellitus (GDM) in third trimester- Primary Essential hypertension affecting in third trimester [facility] general Narrative - Reported* Type Description Date Medical History headache Surgical HistoryappendectomySurgical Historyshoulder surgerySurgical History endometriosis ididwork Other History of Present illness Narrative* 26 [...] engaged x 1 year * working at [employer] in [place] [address] Work Phone: Hospital course Narrative No data available for this section [facility] No data available for this section [facility]ructionsNot on filedocumented in this encounter [facility]ructionsNot on filedocumented in this encounter [facility] System[facility]ructionsNot on filedocumented in this encounter [facility] SystemInstructionsNot on filedocumented in this encounter [facility]* Attachments The following attachments cannot be sent through Care Everywhere. * Preeclampsia (Ethiopian) documented in this encounterProMedica Health SystemInstructionsNot on file documented in this encounterProMedica Health SystemInstructionsNot on file documented in this encounterProMedica Health SystemInstructionsNot on file documented in this encounterProMedica Health SystemInstructionsNot on file documented in this encounterProMedica Health SystemProgress note No data available for this section [facility] HospitalReason for visit NarrativePT HERE AT REQUEST OF DR RODRÍGUEZ FOR EVALUATION AND TREATMENT OF ELVATED LIVER FUNCTION- ( DR. SAMUEL PT), LABS FROM DR RODRÍGUEZ REVIEWED BY DR Iraheta Marinelayer Other Summary Purpose Family History Unknown Family [...] Bilateral ureterolysis Surgeon: Dr. Charlene Rodriguez Resident/Fellow/Other Bending Machine Operator: Glory Palacio Anesthesia: general I.V. [...] the bilateral uterosacral ligaments and pelvic side ugidry. Normal appearing uterus, bilateral fallopian tubes an (more content not included)... Chief Complaint patient here to discuss pain related to endometriosis, declined barge hand. 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 [address] [place] [address] Mr Imaging Referral IDStatusReasonLecompte DateExpiration DateVisits RequestedVisits [id number] Auto-Generated Referral /[id number] / ProceduresReferred By ContactReferred To [facility] Diagnoses Constipation, unspecified constipation type High-tone pelvic floor dysfunction Diastasis of rectus abdominis Dysmenorrhea Other specified dyspareunia Chronic pelvic pain in female Procedures CONSULT TO PHYSICAL THERAPY PHYSICAL THERAPY EVALUATION HIGH COMPLEX 45 MINS Jihan Downs, COLLECTION MANAGER.CLINICAL SYSTEMS EDUCATOR [address] [facility] [address] [place] [address] [facility] [place] [address] [place] [id number] Referral IDStatLulacaterina DateExpiration DateVisits RequestedVisits [id number] Review Auto-Generated Referral / Chief Complaint and Reason for Visit Chief Complaint Admit Date N94.10 N80.9 February 02, 2025 3:1 6pm Additional Source Comments INFORMATION SOURCE (unrecogn ized section and content) DATE CREATED AUTHOR 10/26/2020 [facility] DATE CREATED AUTHOR AUTHOR'S ORGANIZ ATION 11/06/2020 [facility] DATE CREATED AUTHOR AUTHOR'S ORGANIZ ATION 12/17/2020 [facility] DATE CREATED AUTHOR AUTHOR'S ORGANIZ ATION 04/21/2021 [facility] DATE CREATED AUTHOR AUTHOR'S ORGANIZ ATION 06/05/2021 [facility] DATE CREATED AUTHOR AUTHOR'S ORGANIZ ATION 10/02/2021 [facility] DATE CREATED AUTHOR AUTHOR'S ORGANIZ ATION 02/10/2022 [facility] DATE CREATED AUTHOR AUTHOR'S ORGANIZ ATION 12/05/2022 [facility] DATE CREATED AUTHOR AUTHOR'S ORGANIZ ATION 04/30/2024 [facility] DATE CREATED AUTHOR AUTHOR'S ORGANIZ ATION 02/09/2025 [facility] DATE CREATED AUTHOR AUTHOR'S ORGANIZ ATION 03/15/2025 [facility] DATE CREATED AUTHOR AUTHOR'S ORGANIZ ATION 08/03/2025 [facility] DATE CREATED AUTHOR AUTHOR'S ORGANIZ ATION 08/13/2025 [facility] DATE CREATED AUTHOR AUTHOR'S ORGANIZ ATION 08/16/2025 [facility] DATE CREATED AUTHOR AUTHOR'S ORGANIZ ATION 08/20/2025 [facility] DATE CREATED AUTHOR AUTHOR'S ORGANIZ ATION 08/21/2025 [facility] DATE CREATED AUTHOR AUTHOR'S ORGANIZ ATION 08/29/2025 [facility] DATE CREATED AUTHOR AUTHOR'S ORGANIZ ATION 09/12/2025 [facility] DATE CREATED AUTHOR AUTHOR'S ORGANIZ ATION 10/02/2025 [facility] DATE CREATED AUTHOR AUTHOR'S ORGANIZ ATION 10/08/[address] [facility] Care Team (unrecognized sect ion and content) Team MemberRelationshipSpecialtyStart DateEnd Date Denny Rodríguez MD [address] [place] [address] PCP - GeneralFamily Medicine12/03/14Team MemberRelationshipSpecialtyStart DateEnd Date Denny Rodríguez MD [address] [place] [address] PCP - GeneralFamily Medicine12/03/14Team MemberRelationshipSpecialtyStart DateEnd Date Denny Rodríguez MD [address] [place] [address] PCP - GeneralFamily Medicine12/03/14Team MemberRelationshipSpecialtyStart DateEnd Date Denny Rodríguez MD [address] [place] [address] PCP - GeneralFamily Medicine12/03/14Team MemberRelationshipSpecialtyStart DateEnd Date Denny Rodríguez MD [address] [place] [address] PCP - GeneralFamily Medicine12/03/14Team MemberRelationshipSpecialtyStart DateEnd Date Denny Rodríguez MD [address] [place] [address] PCP - GeneralFamily Medicine12/03/14Team MemberRelationshipSpecialtyStart DateEnd Date Denny Rodríguez MD [address] [place] [address] PCP - GeneralFamily Medicine12/03/14Team MemberRelationshipSpecialtyStart DateEnd Date Denny Rodríguez MD [address] [place] [address] PCP - GeneralFamily Medicine12/03/14Team MemberRelationshipSpecialtyStart DateEnd Date Denny Rodríguez MD [address] [place] [address] PCP - GeneralFamily Medicine12/03/14Team MemberRelationshipSpecialtyStart DateEnd Date Denny Rodríguez MD [address] [place] [address] [facility] - [facility]12/03/14Team MemberRelationshipSpecialtyStart DateEnd Date Denny Rodríguez MD [address] [place] [address] PCP - [place] Wclccohdss83/1/21 Denny Rodríguez MD [address] [place] [address] PCP - GeneralFadely Medicine04/10/23 Denny Rodríguez MD [address] [place] [address] PCP - [facility]02/24/23 Zenobia [place] NP [address] [place] [address] Nurse [facility]10/05/23 Trista Thao NP [address] [place] [address] Nurse PractitionerPulmonary Gwvcelm76/10/23Team MemberRelationshipSpecialtyStart DateEnd Date Denny Rodríguez MD [address] [place] [address] PCP - GeneralFamily Medicine12/03/14Team MemberRelationshipSpecialtyStart DateEnd Date Denny Rodríguez MD [address] [place] [address] PCP - GeneralStory [facility] Medical Centerly Medicine12/03/14Team MemberRelationshipSpecialtyStart DateEnd Date Denny Rodríguez MD [address] [place] [id number] PCP - [place] Blizbfkbgv12/1/21 Denny Rodríguez MD [address] [place] [facility]70 PCP - [facility]02/24/23 Eliceo Beltran DO [address] [place] [address] PCP - Generalmily Medicine02/14/24Team MemberRelationshipSpecialtyStart DateEnd Date Denny Rodríguez MD [address] [place] [address] PCP - [place] Pugdogwcip42/1/21 Denny Rodríguez MD [address] [place] [address] PCP - [facility]02/24/23 Eliceo Beltran DO [address] [place] [address] PCP - [facility] Medicine02/14/24Team MemberRelationshipSpecialtyStart DateEnd Date Denny Rodríguez MD [address] [place] [address] PCP - [place] Mfkyevkvbi64/1/21 Denny Rodríguez MD [address] [place] [address] PCP - [facility]02/24/23 Eliceo Beltran DO [address] [place] [address] PCP - [facility]02/14/24Team MemberRelationshipSpecialtyStart DateEnd Date Denny Rodríguez MD [address] [place] [address] PCP - [place] Ptkxpxgfsb03/1/21 Denny Rodríguez MD [address] [place] [address] PCP - [facility]02/24/23 Eliceo Beltran DO [address] [place] [address] PCP - [facility]02/14/24Team MemberRelationshipSpecialtyStart DateEnd Date Denny Rodríguez MD [address] [place] [address] PCP - [place] Gedngglpcx93/1/21 Denny Rodríguez MD [address] [place] [address] PCP - [facility]02/24/23 Eliceo Beltran DO [address] [place] [address] PCP - GeneralFamily Medicine02/14/24Team MemberRelationshipSpecialtyStart DateEnd Date Denny Rodríguez MD [address] [place] [address] PCP - [place] Pcfemfshfk64/1/21 Eliceo Beltran DO [address] [place] [address] PCP - Generalmily Medicine02/14/24Team MemberRelationshipSpecialtyStart DateEnd Date Eliceo Beltran DO [address] [place] [address] PCP - GeneralFamily Medicine02/14/24Team MemberRelationshipSpecialtyStart DateEnd Date Eliceo Beltran DO [address] [place] [address] PCP - Generalmily Medicine02/14/24 Team Status: Active [...] [address] [place] [address] PCP - [facility] Medicine02/14/24 Eliceo Beltran DO [address] [place] [address] PCP - Medical [place] [employer]07/27/2412Team MemberRelationshipSpecialty Start DateEnd Date Eliceo Beltran DO [address] [place] [address] PCP - [facility] Medicine02/14/24 Eliceo Beltran DO [address] [place] [address] PCP - Medical [place] [employer]07/27/2412Team MemberRelationshipSpecialty Start DateEnd Date Eliceo Beltran DO [address] [place] [address] PCP - [facility] Medicine02/14/24 Eliceo Beltran DO [address] [place] [address] PCP - Medical [place] [employer]07/27/2412Team MemberRelationshipSpecialty Start DateEnd Date Eliceo Beltran DO [address] [place] [address] PCP - [facility] Medicine02/14/24 Eliceo Beltran DO [address] [place] [address] PCP - [facility] [place] [employer]07/27/2412Te MemberRelationshipSpecialty Start DateEnd Date Eliceo Beltran, DO [address] [place] [address] PCP - [facility] Medicine02/14/24 Eliceo Beltran, DO [address] [place] [address] PCP - [facility] [place] [employer]07/27/2412Team MemberRelationshipSpecialty Start DateEnd Date Eliceo Beltran, DO [address] [place] [address] PCP - [facility] Medicine02/14/24 Eliceo Beltran, DO [address] [place] [address] PCP - [facility] [place] [employer]07/27/2412Team MemberRelationshipSpecialty Start DateEnd Date Eliceo Beltran, DO [address] [place] [address] PCP - [facility] Medicine02/14/24 Eliceo Beltran, DO [address] [place] [address] PCP - [facility] [place] [employer]07/27/2412Te MemberRelationshipSpecialty Start DateEnd Date Eliceo Beltran, DO [address] [place] [address] PCP - Generalmily Medicine02/14/24 Eliceo Beltran, [address] [place] [address] PCP - [facility] [place] [employer]07/27/2412Team MemberRelationshipSpecialty Start DateEnd Date Eliceo Beltran DO [address] [place] [address] PCP - [facility] Medicine02/14/24 Eliceo Beltran, [address] [place] [address] PCP - [facility] [place] [employer]07/27/2412Team MemberRelationshipSpecialty Start DateEnd Date Eliceo Beltran DO [address] [place] [address] PCP - [facility] Medicine02/14/24 Eliceo Beltran DO [address] [place] [address] PCP - [facility] [place] [employer]07/27/2412Team MemberRelationshipSpecialty Start DateEnd Date Eliceo Beltran DO [address] [place] [address] PCP - [facility] Medicine02/14/24 Eliceo Beltran DO [address] [place] [address] PCP - [facility] [place] [employer]07/27/2412Team MemberRelationshipSpecialty Start DateEnd Date Denny Rodríguez MD [address] [place] [address] PCP - [facility] Medicine12/02/18 MemberRelationshipSpecialtyStart DateEnd Date Denny Rodríguez MD [address] [place] [address] PCP - [facility] Medicine12/02/18 MemberRelationshipSpecialtyStart DateEnd Date Eliceo Beltran, DO [address] [place] [address] PCP - [facility]02/14/24 Eliceo Beltran, DO [address] [place] [address] PCP - [facility] [place] [employer]07/27/2412Te MemberRelationshipSpecialty Start DateEnd Date Eliceo Beltran, DO [address] [place] [address] PCP - [facility]02/14/24 Eliceo Beltran, DO [address] [place] [address] PCP - [facility] [place] [employer]07/27/2412Te MemberRelationshipSpecialty Start DateEnd Date Eliceo Beltran, DO [address] [place] [address] PCP - [facility]02/14/24 Eliceo Beltran, DO [address] [place] [address] PCP - [facility] [place] [employer]07/27/2412Team MemberRelationshipSpecialty Start DateEnd Date Eliceo Beltran DO [address] [place] [address] PCP - GeneralFamily Medicine02/14/24 Eliceo Beltran DO [address] [place] [address] PCP - [facility] [place] [employer]07/27/2412Team MemberRelationshipSpecialty Start DateEnd Date Denny Rodríguez MD [address] [place] [address] PCP - GeneralFamily Medicine12/02/18Team MemberRelationshipSpecialtyStart DateEnd Date Eliceo Beltran DO [address] [place] [address] PCP - GeneralFamily Medicine02/14/24 Eliceo Beltran DO [address] [place] [address] PCP - [facility] [place] [employer]07/27/2412Team MemberRelationshipSpecialty Start DateEnd Date Eliceo Beltran DO [address] [place] [address] PCP - GeneralFamily Medicine02/14/24 Eliceo Beltran DO [address] [place] [address] PCP - [facility] [place] [employer]07/27/2412Team MemberRelationshipSpecialty Start DateEnd Date Denny Rdoríguez MD [address] [place] [address] PCP - Generalmily Medicine12/02/18Team MemberRelationshipSpecialtyStart DateEnd Date Denny Rodríguez MD [address] [place] [address] PCP - [facility]Story [facility] Centerly Medicine12/02/18Team MemberRelationshipSpecialtyStart DateEnd Date Eliceo Beltran DO [address] [place] [address] [facility]/24 Eliceo Beltran DO [address] [place] [address] PCP - [facility] [place] [employer]07/27/2412Team MemberRelationshipSpecialty Start DateEnd Date Eliceo Beltran DO [address] [place] [address] PCP - [facility] Medicine02/14/24 Eliceo Beltran DO [address] [place] [address] PCP - [facility] [place] [employer]07/27/2412Team MemberRelationshipSpecialty Start DateEnd Date Denny Rodríguez MD [address] [place] [address] [facility] - [facility]12/02/18Team MemberRelationshipSpecialtyStart DateEnd Date Denny Rodríguez MD [address] [place] [address] PCP - GeneralFamily Medicine12/02/18Team MemberRelationshipSpecialtyStruth DateEnd Date Denny Rodríguez MD [address] [place] [address] PCP - [place] Jxahxruqfl72/1/ Denny Rodríguez MD [address] [place] [address] PCP - GeneralFamily Medicine Denny Rodríguez MD [address] [place] [address] PCP - [facility] Eliceo Beltran DO [address] [place] [address] PCP - [facility]02/14/24 Eliceo Beltran DO [address] [place] [address] PCP - [facility] [place] [employer]07/27/2412 Zenobia [place] NP [address] [place] [address] Nurse PractitionerFamily Rtoyffwg11/10/235 Trista Thao NP [address] [place] [address] Nurse PractitionerPulmonary Vkoeqjb61/10/235Team MemberRelationship SpecialtyStart DateEnd Date Eliceo Beltran DO [address] [place] [address] PCP - GeneralFamily Medicine02/14/24 Eliceo Beltran [address] [place] [address] PCP - [facility] [place] [employer]07/27/2412Team MemberRelationshipSpecialty Start DateEnd Date Denny Rodríguez MD [address] [place] [address] PCP - GeneralFamily Medicine12/02/18 Source Comments (unrecognize d section and content) In the event this informatio n is protected by the Federal Confidentiality of Alcohol and Drug Abuse Patient Records regulations: The Federal rules restrict any use of the information to criminally investigate or prosecute any alcohol or drug abuse patient.[facility] CenterIn the event this information is protected by the Federal Confidentiality of Alcohol and Drug Abuse Patient Records regulations: The Federal rules restrict any use of the information to criminally investigate or prosecute any alcohol or drug abuse patient.[facility] CenterIn the event this information is protected by the Federal Confidentiality of Alcohol and Drug Abuse Patient Records regulations: The Federal rules restrict any use of the information to criminally investigate or prosecute any alcohol or drug abuse patient.[facility] CenterIn the event this information is protected by the Federal Confidentiality of Alcohol and Drug Abuse Patient Records regulations: The Federal rules restrict any use of the information to criminally investigate or prosecute any alcohol or drug abuse patient.[facility] CenterIn the event this information is protected by the Federal Confidentiality of Alcohol and Drug Abuse Patient Records regulations: The Federal rules restrict any use of the information to criminally investigate or prosecute any alcohol or drug abuse patient.[facility] CenterIn the event this information is [...] prosecute any alcohol or drug abuse patient.[facility] Medical CenterIn the event this information is protected by the Federal Confidentiality of Alcohol and Drug Abuse Patient Records regulations: The Federal rules restrict any use of the information to criminally investigate or prosecute any alcohol or drug abuse patient.[facility] CenterIn the event this information is protected by the Federal Confidentiality of Alcohol and Drug Abuse Patient Records regulations: The Federal rules restrict any use of the information to criminally investigate or prosecute any alcohol or drug abuse patient.[facility] CenterIn the event this information is protected by the Federal Confidentiality of Alcohol and Drug Abuse Patient Records regulations: The Federal rules restrict any use of the information to criminally investigate or prosecute any alcohol or drug abuse patient.[facility] CenterIn the event this information is protected by the Federal Confidentiality of Alcohol and Drug Abuse Patient Records regulations: The Federal rules restrict any use of the information to criminally investigate or prosecute any alcohol or drug abuse patient.[facility] CenterIn the event this information is protected by the Federal Confidentiality of Alcohol and Drug Abuse Patient Records regulations: The Federal rules restrict any use of the information to criminally investigate or prosecute any alcohol or drug abuse patient.[facility] CenterIn the event this information is protected by the Federal Confidentiality of Alcohol and Drug Abuse Patient Records regulations: The Federal rules restrict any use of the information to criminally investigate or prosecute any alcohol or drug abuse patient.[facility] CenterIn the event this information is protected by the Federal Confidentiality of Alcohol and Drug Abuse Patient Records regulations: The Federal rules restrict any use of the information to criminally investigate or prosecute any alcohol or drug abuse patient.[facility] CenterIn the event this information is protected by the Federal Confidentiality of Alcohol and Drug Abuse Patient Records regulations: The Federal rules restrict any use of the information to criminally investigate or prosecute any alcohol or drug abuse patient.[facility] Reason for Visit (unrecogniz ed section and content) ReasonCommentsMenstrual ProblemReasonCommentsVaginal BleedingReasonComments EndometriosisReasonCommentsInsurance AuthorizationOrilissaReasonCommentsPelvic PainSpecialtyDiagnoses / ProceduresReferred By ContactReferred To ContactOB/SUPERVISOR P[employer]LET FARM / GYNECOLOGY Diagnoses Painful menstrual periods Painful Periods Procedures OFFICE/OUTPATIENT ESTABLISHED SF MDM 10-19 MIN EST WHI PATIENT Jihan Downs, COLLECTION MANAGER.CLINICAL SYSTEMS EDUCATOR [address] [place] [id number] Jihan Downs, COLLECTION MANAGER.CLINICAL SYSTEMS EDUCATOR [address] [place] [id number] Referral IDStatusReasonStart DateExpiration DateVisits RequestedVisits [id number]/25/202312/[id number] MRI SpecialtyDiagnoses / ProceduresReferred By ContactReferred To ContactMR IMAGING Diagnoses Pelvic and perineal pain Procedures MRI FEMALE PELVIS WO/W IVCON MRI PELVIS W/O & W/CONTRAST MATERIAL Charlene Rodriguez DO [address] [facility] [address] [place] [address] Mr Imaging [place] [address] Referral IDStatusReasonStart DateExpiration DateVisits RequestedVisits [id number] Auto-Generated Referral /[id number] DateCommentsRefill Jiwzwbq3801/02/2024eason CommentsMenorrhagiaCramping with bleedingReasonCommentsSurgery Cancelled SpecialtyDiagnoses / ProceduresReferred By ContactReferred To Contact Diagnoses Preeclampsia, severe, third trimester Procedures O14.13 - Preeclampsia, severe, third trimester Kathe Ryder, [address] [place] [address] [facility] [address] [place] [address] Referral IDStatusReasonStart DateExpiration DateVisits RequestedVisits [id number] Pressure CheckReasonCommentsDysmenorrhea ReasonCommentsWell Women VisitReasonCommentsShoulder PainReasonCommentsPainful IntercourseReasonCommentsAmenorrheaReasonCommentsRoutine VisitReason CommentsGestational DiabetesSpecialtyDiagnoses / ProceduresReferred By Contact Referred To ContactMaternal and Medicine Diagnoses Gestational diabetes mellitus (GDM) in second trimester, gestational diabetes method of control unspecified Nathan Pop, DO [address] [place] [address] [place] [address] Phone: tel: fax: Maternal- Medicine at [facility] [address] [place] [address] Phone: tel: fax: Referral IDStatusReasonStart DateExpiration DateVisits RequestedVisits [id number] Review Specialty Services Required /[id number] consult Scheduled Active and Recently Administ ered [...] every 2-3 minutes with cervical changes or [place] units (MVU) greater than 200 in a [...] Topical, As needed, pain, , Starting on Constacne 11/30/22 at 0608, , Apply to perinealarea. [...] BE BASED ON THE PRIMARY CLINICAL RECORDS. [employer] provides no warranty or guarantee of the accuracy or completeness of information in this document.
[2025-10-16 13:27] VITALS: BP 121/83; PULSE 96
[2025-10-16 13:53] LABS: Glucose Urine UA NEGATIVE (NEGATIVE)
[2025-10-16 14:08] LABS: Cast Seen? NONE SEEN #/LPF (NONE SEEN); Crystals Seen? None Seen #/HPF (None Seen); Urine Culture Indicated YES-FRMC
== END 2025-10-16 14:08 | disposition home or self-care (01) ==
LOC: FBC 13:16
PROVIDERS: Admitting Provider Obstetrics & Gynecology; Family Provider Family Medicine; PCP Family Medicine; Visit Provider Obstetrics & Gynecology
DX: O16.9 Unspecified maternal hypertension, unspecified trimester (principal); O99.891 Other specified diseases and conditions complicating pregnancy; R04.0 Epistaxis; Z3A.00 Weeks of gestation of pregnancy not specified
CPT/HCPCS: 59025; 81001; 87086; G0378; G0379

== ENCOUNTER 2025-10-17 08:06 | Outpatient (OUT) | payer OTHER, SELFPAY ==
--- OUTSIDE RECORDS SUMMARY | 2025-10-06 14:30 | XMS_ITS | Encounter Summary ---
Author Organization [facility] [employer] [facility] tem Address [id number] [address] [place] [address] Care Team Providers Care First Helper Name Role Phone Cruz Rodríguez MD Primary Care Provider [phone] Encounter Details DateTypeDepartmentCare Team (Latest Contact Info)Vngbxdtkuwu61/11/2025 2:30 PM ESTTelemedicine Maternal- Medicine at [facility] [address] [place] [address] Kayleigh Rizzo PALuis Angel [address] [address] Insulin controlled gestational diabetes mellitus (GDM) in [...] or more drinks on one occasion?Never5ChildcareAnswer Date StmolrxbSnyokflrtGvuamgm79/13/2019EmploymentAnswerDate RecordedEmployment Qxyyhrv4905/08/2019Hunger ScreeningAnswerDate RecordedWithin the past 12 months we worried whether our food would run out before we got money to buy more.Never True09/10/2025Within the past 12 months the food we bought just didn't last and we didn't have money to get more.Never True09/10/2025Purpose - LifeAnswerDate RecordedPurpose and direction in jdvjLnyeqcc98/11/2021Estimated Date of QslctathYukkwnbiAtt48/03/2026Based on last menstrual period of 02/21/2025 (Exact Date)Sex and Gender InformationValueDate RecordedSex Assigned at BirthNot on fileLegal AmhObqmzl68/07/2019 2:55 PM ESTGender IdentityNot on fileSexual OrientationNot on filedocumented as of this encounter Progress Notes * Kayleigh Rizzo PA-C - 10/06/2025 2:30 PM EST Maternal- Medicine Consultation VIDEO Patient is present at work, provider present at [facility] HISTORY OF PRESENT ILLNESS: Driss Gama [...] values to us weekly by e-mail to: [email or web address] or by fax to: [phone] Kayleigh Rizzo PA-C Maternal- Medicine Office phone: [phone] Kayleigh Rizzo PA-C 10/06/25 2888 documented in this encounter Plan of Treatment DateTypeDepartmentCare Team (Latest Contact Info)Knwbzlbnkii21/03/2025 11:00 AM ESTAppointment Maternal Medicine [place] [address] [place] [address] 11/03/2025 2:30 PM ESTOffice Visit Maternal- Medicine at [facility] [address] [place] [address] Kayleigh Rizzo, PALuis Angel [address] [address] documented as of this encounter Visit Diagnoses Diagnosis Insulin controlled gestational diabetes mellitus (GDM) in third trimester- Primary Essential hypertension affecting in third trimester documented in this encounter Care Teams Team MemberRelationshipSpecialtyStart DateEnd Date Cruz Rodríguez MD [address] [place] [address] PCP - GeneralFamily Medicine12/02/18documented as of this encounter
--- OUTSIDE RECORDS SUMMARY | 2025-10-14 15:30 | XMS_ITS | Encounter Summary ---
Author Organization [facility] Address [address] [place] [address] Care Team Providers Care Desulfurizer Hand Name Role Phone CharlotteEliceo medina Primary Care Provider [phone] Charlottecarol Eliceo Hurtado DO Unavailable [phone] Encounter Details DateTypeDepartmentCare Team (Latest Contact Info)Fovxvdlziap15/19/2025 3:30 PM ESTRoutine [facility] [place] [facility] [address] [place] [phone] Nathan Pop DO [address] [place], [facility]11 33 weeks gestation of ([facility]); Third trimester ([facility]) Social History Tobacco UseTypesPacks/DayYears UsedDateSmoking Tobacco: NeverSmokeless Tobacco: NeverAlcohol UseStandard Drinks/WeekCommentsNever0 (1 standard drink = 0.6 oz pure alcohol)caffeine: 1-2 cups per day, coffee and [id number] Health Literacy AnswerDate RecordedHow often do you [...] week12/29/2024How often do you attend catholic or hoahaoism services?Patient nsueyooi27/03/2025Do you belong to any clubs or organizations such as catholic groups, unions, fraRedicam or athletic leodan ups, or school groups?No12/29/2024How often do you attend meetings of the clubs or organizations you belong to?Patient yuzsauls31/03/2025re you , , , , never , [...] Health Questionnaire-2 Score0 07/30/2025[facility] Occupational Health - Occupational Stress QuestionnaireAnswerDate RecordedDo you feel stress - tense, restless, nervous, or anxious, or unable to sleep at night because yourmind is troubled all the time - these days?Only a leqbyw4512/29/2024Exercise Vital SignAnswerDate Recorded On average, how many [...] the highest degree you have received?High school mmxigotr67/29/2023 Estimated Date of TgnmfakrEkovzfkgQbv98/03/2026ased on last menstrual period of 02/21/2025Sex and Gender InformationValueDate RecordedSex Assigned at BirthNot on fileLegal HqyOuptdk07/15/2023 7:18 PM EDTGender IdentityNot on file Sexual OrientationNot on 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 Not on fileNot on fileNot on filedocumented as of this encounter Last Filed Vital Signs Vital SignReadingTime TakenCommentsBlood Gbldkbce976/8410/14/2025 3:29 PM EST Pulse--Temperature--Respiratory Rate--Oxygen Saturation--Inhaled Oxygen Concentration--Iyfabi95.3 kg (168 lb 1.9 oz)10/14/2025 3:29 PM ESTHeight--Body Mass Index30.75007/30/2025 3:36 PM EDTdocumented in this encounter Plan of Treatment DateTypeDepartmentCare Team (Latest Contact Info)Zucanikrcin11/04/2025 9:00 AM ESTRoutine [facility] [place] [facility] [address] [place] [phone] Nathan Pop DO [address] [place] [address] documented as of this encounter Procedures Procedure NamePriorityDate/TimeAssociated DiagnosisCommentsPOCT URINALYSIS RWRYZSYPOkxrxhq74/19/2025 3:40 PM EST 33 weeks gestation of ([facility]) Third trimester ([facility]) documented in this encounter Results [...] / LateralityCollection Method / VolumeCollection Time Received WuwnDqdzk80/19/2025 3:40 PM EST Narrative Authorizing ProviderResult TypeResult StatusCorey Kiesha DOPOINT OF CARE TEST ENTER/EDIT ORDERABLESFinal Result documented in this encounter Visit Diagnoses Diagnosis 33 weeks gestation of ([facility]) Third trimester ([facility] state, incidental documented in this encounter Care Teams Team MemberRelationshipSpecialtyStart DateEnd Date Eliceo Beltran DO [address] [place] [address] PCP - GeneralFamily Medicine02/14/24 Eliceo Beltran DO [address] [place] [address] PCP - Medical [place] [employer]07/27/2412documented as of this encounter
--- OUTSIDE RECORDS SUMMARY | 2025-10-16 19:30 | XMS_ITS | Continuity of Care Document ---
Author Organization [facility] Address [address] [place] [address] Phone Care Team Providers Care Image Consultant Name Role Phone Nathan Pop DO Attending Provider [phone] Care Teams Patient Care Team Team Status: Active Member Role/Relationship Status Dates Cruz Rodríguez MD Primary Care Provider Active Patient Care Team Team Status: Inactive Member Role/Relationship Status Dates Nathan Pop DO Attending Provider Active Start : October 16, 2025 End: October 16, 2025 Allergies, Adverse Reactions, Alerts Allergen Type Severity Reaction Last Updated Verified Status No Known Allergies Allergy Unknown September 02, 2020 7:33pmYesActive Social History Smoking Status Status Start Date End Date Date of Observa tion Never smoked tobacco (finding) May 16, 2022 11:59am Observation Status Observation Response Date of Response Legal Sex Female (finding) Sex Assigned At BirthFemaleAprnd 1994 Family History Relationship Condition Age at Onset Recorded Date/T laney father Malignant neoplasm of colon Unknown grandparentMalignant neoplasm of colonUnknowngrandparentMalignant neoplasm of colonUnknownMalignant neoplasm of breastUnknowngrandparentMalignant neoplasm of breastUnknownfatherFamily history of colon cancerUnknownDeceasedUnknownMalignant neoplasmUnknownfamily memberDeceasedUnknownmotherHypertensionUnknown Problems Inactive/Resolved Problems Problem Diagnosis/Recorded Date Onset Date Status C omments Postoperative urinary retention September 02, 2020 1:42am Unknown Resolved Problem List clean-up per request of Phys. EHR Cmte Migraine August 06, 2017 2:50am Unknown Resolved Problem List clean-up per request of Phys. EHR Cmte Anxiety September 03, 2020 12:49am Unknown Resolved Problem List clean-up per request of Phys. EHR Cmte Atypical chest pain September 03, 2020 12:49am Unknown R esolved Problem List clean-up per request of Phys. EHR Cmte Arm paresthesia, left October 17, 2017 3:40pm Unknown Resolved Problem List clean-up per request of Phys. EHR Cmte Tremor March 12, 2019 6:48pm Unknown Resolved P roblem List clean-up per request of Phys. EHR Cmte Allergic reaction March 12, 2019 6:48pm Unknown Resol rhonda Problem List clean-up per request of Phys. EHR Cmte Acute urinary retention March 12, 2019 6:48pm Unknown Resolved Problem List clean-up per request of Phys. EHR Cmte Acute urinary retention March 14, 2019 9:30pm Unknown Resolved Problem List clean-up per request of Phys. EHR Cmte Constipation March 14, 2019 9:30pm Unknown Resolved Problem List clean-up per request of Phys. EHR Cmte Medications Medication Status Dose Units Route Directions Qty Days Refills S tart Date Stop Date End Date Reason(s) Instructions Adherence Atenolol 50 mg tablet Discontinued 50 MG PO Daily August 05, 2017 11:00pmNov2017 2:34pm Norethindrone-E.Estradiol-Iron (Lo Loestrin Fe) 1 mg-10 mcg (24)/10 mcg (2) kvphifQtzhctukgddn1FVWVITeehkXixuuvir 2016 12:00amApril 2018 5:15am Prednisone 20 mg hznwkeFqwxttqmyhna68QTRWSfmsu669Hbvfu 2018 11:00pm August 04, 2019 7:18amadminister with food or milkNorgestimate-Ethinyl Estradiol 0.25-35 mg-mcg phqmvkPijpnj6TBMZYMxuocJswvbypdt 8th, 2019 11:00pm UnknownMetoclopramide Hcl 10 mg itfnnlHpnabz00QNYLXnhbx times dailySept2018 11:00pmUnknownFluoxetine (Prozac) 20 mg ccbsyvcAwcrhujztyzr44XCVFOnwsw November 02, 2018 12:00amSeptember 2018 7:19amNaproxen (Naprosyn) 500 mg lgincgIuteuifknsez599STPDFmmcv daily as needed for zgqx634Jkgrcfpl 2017 12:00amApril 2018 5:15amadminister with food or milkTramadol 50 mg tablet Vddeqobdkiiu20CNQCD2L as needed for hvjj5070Lzvdb 2018 11:00pmSeptember 2018 7:19amOther acute postprocedural painCephalexin (Keflex) 500 mg ftuftkwCanibltmjzzf019ASKXM71I8760Ggqcr 2018 11:00pmSept2018 7:18am Procedures Procedure Date Performed Status Urine Culture October 16, 2025 active Advance Directives Advance Directive Response Recorded Date/ Time Advance Directives No May 16 11:02am Insurance Providers Guarantor Daniel Oscar Address [address] [place] [id number] Info.Home Phone: Coverage Status Update:2025 Payer Group Member ID Coverage Type Subscriber Relationship to Subscriber Effective Date Expiration Date MMO Id: [id number] Mcconegly , M Id: [id number] [address] [facility] [address] Home Phone: Email: [email or web address]/ Id: [id number] Mcconegly , M Id: [id number] [address] [facility] [address] Home Phone: Email: [email or web address] Medicaid Id: [id number] Mcconegly , M Id: [id number] [address] [facility] [address] Home Phone: Email: [email or web address] Encounters Encounter Location(s) Arrival/Admit Date Discharge/Departure Date Discharge/Departure Disposition Provider(s) Departed Referred -[facility] October 16, 2025 1:30pm October 16, 2025 1:31pm Discharged to home care or self care (routine discharge) Nathan Pop Plan of Treatment Future Tests Future scheduled test information is unavailable Pending Tests Test Name Ordered Date Scheduled Date Urine Culture October 16, 2025 1:30pm Future Visits Future appointment information is unavailable Future Procedures Procedure Name Ordered Date Scheduled Date Urine Culture October 16, 2025 4:21pm Novem 2024 1:30pm Future Medications Future medication information is unavailable Patient Instructions Patient instructions are unavailable
--- NOTE | 2025-10-17 | US_ITS ---
[address] [address] Patient Name: JUHI HOPE MRN: [id number] date: 1995 Sex: F Assigned Patient Location: [facility] Current Patient Location: Accession/Order Number: [id number] Exam Date: 10/17/2025 08:11 Report Date: 10/17/2025 09:22 At the request of: MARBELLA HUNTER Procedure: US OB BPP w non-stress Biophysical profile. Reason for exam: Gestational diabetes COMPARISON: 10/10/2025 TECHNIQUE: Transabdominal imaging of the gravid uterus was obtained. FINDINGS: The recruiting scheduler reports a BPP of 8 out of 8. LEONEL is normal at 13.2 cm. heart rate 144 bpm. Nuchal cord is present. US/US OB BPP w non-stress IMPRESSION: BPP 8 out of 8. Nuchal cord is present. This was reported to the nurse by the ophthalmic medical technologist. Impression dictated by: Junito Mcgrath Jr., D.O. 10/17/2025 9:22 AM Dictation Location: [place] [address] Electronically authenticated by: [id number] Y Date: 10/17/2025 09:22
--- OUTSIDE RECORDS SUMMARY | 2025-10-17 08:09 | XMS_ITS | Patient Health Record ---
Author Organization [facility] Address [address] [place] [address] Care Team Providers Care Signal Inspector Name Role Phone Cruz Rodríguez Primary Care [...] Quad PFS (0.5mL Admin) 18 y/o & wbfnnVgjohey66/30/7365Yaytbbam6555 Fluzone Quad PFS (0.5mL Admin) 6 months & otuksOooopon58/17/6562Clbuahhr9747 Fluzone, 6mo & older, Quad MDV (0.5mL Admin)Kvgonuc5307/16/20237700Qmuoghnz9850 Fluzone, 6mo & older, Quad PFS (0.5mL Admin)Wudltoc45/18/2023Contraindications z2023 Fluzone, 6mo & older, Quad PFS (0.5mL Admin)Inasshh07/20/2024Refused Social History Tobacco Use: Social History Observation [...] Status W/U Status Risk Notes Problem Tachycardia (9156691) Tachycardia (R00.0) ActiveconfirmedProblemObesity (548152072)Obesity (BMI 30-39.9) (E66.9)Active confirmed Plan Of Treatment No Information Insurance Providers Payer Name Payer Address Payer Phone Subscriber Number Group Number Insured Name Patient Relationship to Insured Coverage Start Date Coverage End Date [facility] [address] [place] [address] [id number] Driss Woodruff Self - patient is the insured Medical [place] [facility] [address] [place] [phone] [id number], AlexisSelf - patient is the insured Medical (General) History Medical History History ICD Code Tachycardia R00.0 Surgical History Surgery Date(Month/Year) right shoulder surgery endometriosisappendectomyHospitalization History Reason Date(Month/Year) surgeries childbirth
--- OUTSIDE RECORDS SUMMARY | 2025-10-17 08:09 | XMS_ITS | Encounter Summary ---
Author Organization [facility] Address [address] [place] [address] Care Team Providers Care Manager Of Sustainability Name Role Phone NirajEliceo kauffman Primary Care Provider [phone] CharlottecarolEliceo Bryant DYA Unavailable [phone] Encounter Details DateTypeDepartmentCare Team (Latest Contact Info)Mjlajumceoq04/21/2025Clinisync Result Encounter [facility] Department Unsolicited Nathan Pop DO [address] [facility] [place] [address] Social History Tobacco UseTypesPacks/DayYears UsedDateSmoking Tobacco: NeverSmokeless Tobacco: NeverAlcohol UseStandard Drinks/WeekCommentsNever0 (1 standard drink = 0.6 oz pure alcohol)caffeine: 1-2 cups per day, coffee and ndhO9337 Health Literacy AnswerDate RecordedHow often do you [...] week12/29/2024How often do you attend hoahaoism or jehovah's witness services?Patient xnicpckf65/03/2025Do you belong to any clubs or organizations such as hoahaoism groups, unions, [employer] or athletic leodan ups, or school groups?No12/29/2024How often do you attend meetings of the clubs or organizations you belong to?Patient vhapjbly98/03/2025re you , , , , never , [...] RecordedPatient Health Questionnaire-2 Score0 07/30/2025[facility] - Occupational Stress QuestionnaireAnswerDate RecordedDo you feel stress - tense, restless, nervous, or anxious, or unable to sleep at night because yourmind is troubled all the time - these days?Only a mulbez5312/29/2024Exercise Vital SignAnswerDate Recorded On average, how many [...] the highest degree you have received?High school uleoojdd85/29/2023 Estimated Date of ZbuhgylvSvlaszpuUhx88/03/2026ased on last menstrual period of 02/21/2025Sex and Gender InformationValueDate RecordedSex Assigned at BirthNot on fileLegal JolGpryix49/15/2023 7:18 PM EDTGender IdentityNot on file Sexual OrientationNot on 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 Not on fileNot on fileNot on filedocumented as of this encounter Plan of Treatment DateTypeDepartmentCare Team (Latest Contact Info)Uocvocyebgl08/04/2025 9:00 AM ESTRoutine [facility] [address] [facility] [address] Nathan Pop DO [address] [place] [address] [place] [address] NameTypePriorityAssociated DiagnosesDate/TimeURINE CULTURE - [facility]LabRoutine 10/16/2025 1:30 PM ESTdocumented as of this encounter Procedures Procedure NamePriorityDate/TimeAssociated DiagnosisCommentsURINE CULTURE - [facility] Bfotmwh3210/16/2025 1:30 PM ESTTBH UA (CLEAN/CATCH) SUBSTANCE ABUSE SERVICES DIRECTOR/MICRO IF IND.Routine 10/16/2025 1:30 PM EST documented in this encounter Results * (ABNORMAL) TBH UA (CLEAN/CATCH) SUBSTANCE ABUSE SERVICES DIRECTOR/MICRO IF IND. (10/16/2025 1:30 PM EST) ComponentValueRef RangeTest MethodAnalysis TimePerformed AtPathologist SignatureCOLOR URINELT. YELLOWYELLOWTBHCLARITY URINECLEARCLEARTBHSPECIFIC GRAVITY URINE1.0151.005 - 1.025TBHPH URINE6.05.0 - 9.0TBHPROTEIN URINENEGATIVE NEG/TRACE mg/dLTBHGLUCOSE URINE UANEGATIVENEGATIVE mg/dLTBHBILIRUBIN URINE NEGATIVENEGATIVETBHKETONES URINENEGATIVENEGATIVE mg/dLTBHBLOOD URINENEGATIVE NEGATIVETBHNITRITE URINENEGATIVENEGATIVETBHUROBILINOGEN URINE0.20.2 - 1.0 EU/dLTBHLEUKOCYTE ESTERASE URINEMODERATE(A)NEGATIVETBHURINE MICROSCOPIC INDICATEDYESTBHSpecimen (Source)Anatomical Location / LateralityCollection Method / VolumeCollection TimeReceived Time10/16/2025 1:30 PM EST10/16/2025 1:44 PM EST Narrative CLIN[facility] - 10/16/2025 1:55 PM EST Authorizing ProviderResult TypeResult StatusCorey Kiesha DOCLINISYNCFinal Result Performing OrganizationAddressCity/State/ZIP CodePhone Number CLINISYNC [facility] documented in this encounter Visit Diagnoses Not on filedocumented in this encounter Care Teams Team MemberRelationshipSpecialtyStart DateEnd Date Eliceo Beltran DO [address] [place] [address] [facility]CP - [facility] Medicine02/14/24 Eliceo Beltran DO [address] [place] [address] PCP - Medical [place] [employer]07/27/2412documented as of this encounter
--- OUTSIDE RECORDS SUMMARY | 2025-10-17 08:09 | XMS_ITS | Encounter Summary ---
Author Organization [facility] Address [id number] [address] [place] [address] Care Team Providers Care Client Renewal Specialist Name Role Phone Cruz Rodríguez MD Primary Care Provider [phone] Reason for Referral * Diagnostic Imaging (Routine) [...] with or without consult Nathan Pop DO [address] [place] [address] [place] [address] Phone: tel: fax: Maternal- Medicine at [facility] [address] [place] [address] Phone: tel: fax: Referral IDStatusReasonStart DateExpiration DateVisits RequestedVisits [id number] [id number] Encounter Details DateTypeDepartmentCare Team (Latest Contact Info)Fpcftufergk19/13/2025Orders Only Maternal Medicine [place] [address] [place] [phone] Danae Ramirez RN Insulin controlled gestational diabetes [...] or more drinks on one occasion?Never5ChildcareAnswer Date DuzhnvzfIxiwjcwwjUxzvugr31/13/2019EmploymentAnswerDate RecordedEmployment Htqpmzg8805/08/2019Hunger ScreeningAnswerDate RecordedWithin the past 12 months we worried whether our food would run out before we got money to buy more.Never True09/10/2025Within the past 12 months the food we bought just didn't last and we didn't have money to get more.Never True09/10/2025Purpose - LifeAnswerDate RecordedPurpose and direction in cweuNpdrzaf42/11/2021Estimated Date of AodfhyzyUufxdltwWqb71/03/2026Based on last menstrual period of 02/21/2025 (Exact Date)Sex and Gender InformationValueDate RecordedSex Assigned at BirthNot on fileLegal DwsCzedxl20/07/2019 2:55 PM ESTGender IdentityNot on fileSexual OrientationNot on filedocumented as of this encounter Plan of Treatment DateTypeDepartmentCare Team (Latest Contact Info)Wqwnkipeyjj21/03/2025 11:00 AM ESTAppointment Maternal Medicine [place] [address] [place] [address] 11/03/2025 2:30 PM ESTOffice Visit Maternal- Medicine at [facility] [address] [place] [phone] Kayleigh Rizzo PA-C [address] [address] NameTypePriorityAssociated DiagnosesOrder ScheduleUS MFM with or without [...] Cruz Rodríguez MD [address] [place] [address] PCP - GeneralFamily Medicine12/02/18documented as of this encounter
--- OUTSIDE RECORDS SUMMARY | 2025-10-17 08:09 | XMS_ITS | Encounter Summary ---
Author Organization [facility] tem Address [id number] [address] [place] [address] Care Team Providers Care Manager Internal Name Role Phone Cruz Rodríguez MD Primary Care Provider [phone] Reason for Referral * Diagnostic Imaging (Routine) - Pending ReviewSpecialtyDiagnoses / Procedures Referred By ContactReferred To ContactMaternal and Medicine Diagnoses Essential hypertension affecting in third trimester Insulin controlled gestational diabetes mellitus (GDM) in third trimester Procedures [facility] with or without consult Jean Carlos Pina MD [address] [facility], [address] [place] [address] Phone: tel: fax: [facility]aternal- Medicine at [facility] [address] [place] [address] Phone: tel: fax: Referral IDStatusReasonStart DateExpiration DateVisits RequestedVisits [id number] Encounter Details DateTypeDepartmentCare Team (Latest Contact Info)Xcpntzoyofk33/14/2025Orders Only Maternal- Medicine at [facility] [address] [place] [address] Zora Samuels RN Essential hypertension affecting in [...] or more drinks on one occasion?Never5ChildcareAnswer Date DpfucfxiTxhwynfbhZyaleee64/13/2019EmploymentAnswerDate RecordedEmployment Dnpnpmr0805/08/2019Hunger ScreeningAnswerDate RecordedWithin the past 12 months we worried whether our food would run out before we got money to buy more.Never True09/10/2025Within the past 12 months the food we bought just didn't last and we didn't have money to get more.Never True09/10/2025Purpose - LifeAnswerDate RecordedPurpose and direction in aiepCaofglq18/11/2021Estimated Date of FolaszcfSiubxsfsWcq12/03/2026Based on last menstrual period of 02/21/2025 (Exact Date)Sex and Gender InformationValueDate RecordedSex Assigned at BirthNot on fileLegal AkrRvdzhq47/07/2019 2:55 PM ESTGender IdentityNot on fileSexual OrientationNot on filedocumented as of this encounter Plan of Treatment DateTypeDepartmentCare Team (Latest Contact Info)Xlxlyxiwrbg47/03/2025 11:00 AM ESTAppointment Maternal Medicine [place] [address] [place] [phone] 11/03/2025 2:30 PM ESTOffice Visit Maternal- Medicine at [facility] [address] [facility] [place] [phone] Kayleigh Rizzo PA-C [address] [facility] [address] [place] [address] NameTypePriorityAssociated DiagnosesOrder ScheduleUS MFM with or without [...] DateEnd Date Cruz Rodríguez MD [address] [place] [address] PCP - GeneralFamily Medicine12/02/18documented as of this encounter
--- OUTSIDE RECORDS SUMMARY | 2025-10-17 08:09 | XMS_ITS | Encounter Summary ---
Author Organization [facility] Address [address] [place] [address] Care Team Providers Care Civil Preparedness Training Officer Name Role Phone Eliceo Beltran DO Primary Care Provider [phone] CharlottegeovaniEliceo kauffman Unavailable [phone] Encounter Details DateTypeDepartmentCare Team (Latest Contact Info)Auduomglmvd51/14/2025bstract [facility] [address] [place] [address] Nathan Pop DO [address] [place], [facility] Social History Tobacco UseTypesPacks/DayYears UsedDateSmoking Tobacco: NeverSmokeless Tobacco: NeverAlcohol UseStandard Drinks/WeekCommentsNever0 (1 standard drink = 0.6 oz pure alcohol)caffeine: 1-2 cups per day, coffee and [id number] Health Literacy AnswerDate RecordedHow often do you [...] week12/29/2024How often do you attend tenriism or voodoo services?Patient bepsnsji19/03/2025Do you belong to any clubs or organizations such as tenriism groups, unions, Synchronized or athletic leodan ups, or school groups?No12/29/2024How often do you attend meetings of the clubs or organizations you belong to?Patient ctfuiuaj88/03/2025re you , , , , never , [...] RecordedPatient Health Questionnaire-2 Score0 07/30/2025[facility] - Occupational Stress QuestionnaireAnswerDate RecordedDo you feel stress - tense, restless, nervous, or anxious, or unable to sleep at night because yourmind is troubled all the time - these days?Only a knjofr2212/29/2024Exercise Vital SignAnswerDate Recorded On average, how many [...] place to sleep or slept in [facility] (including now)?No09/19/2023Housing Stability Vital SignAnswerDate RecordedIn the [...] the highest degree you have received?High school aswjvpiu33/29/2023 Estimated Date of VynflibkTsykdbobIve90/03/2026ased on last menstrual period of 02/21/2025Sex and Gender InformationValueDate RecordedSex Assigned at BirthNot on fileLegal GqvRfxqif38/15/2023 7:18 PM EDTGender IdentityNot on file Sexual OrientationNot on 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 Not on fileNot on fileNot on filedocumented as of this encounter Plan of Treatment DateTypeDepartmentCare Team (Latest Contact Info)Txkkdeyyoii78/04/2025 9:00 AM ESTRoutine [facility] [address] [id number] Nathan Pop DO [address] [place] [address] documented as of this encounter Visit Diagnoses Not on filedocumented in this encounter Care Teams Team MemberRelationshipSpecialtyStart DateEnd Date Eliceo Beltran DO [address] [facility] [address] [place] [address] PCP - GeneralFamily Medicine02/14/24 Eliceo Beltran DO [address] [facility] [address] [place] [address] PCP - Medical [employer]07/27/2412documented as of this encounter
--- OUTSIDE RECORDS SUMMARY | 2025-10-17 08:09 | XMS_ITS | CCD ---
Author Organization [facility] Care Team Providers Care Typewriter Repairer Name Role Phone Unavailable Unavailable POCOPAL QUINTEROS Referring Unavailable DENNY RODRÍGUEZ Primary Care Unavailable OPAL LARA Referring Unavailable DENNY RODRÍGUEZ Primary Care Unavailable DENNY RODRÍGUEZ Primary Care Physician [phone] Domo Hodges Unavailable PAOLO DIALLO Attending Unavailable KATHE RYDER Admitting Unavailable KATHE RYDER Attending Unavailable Denny Rodríguez MD Primary Care Provider Denny Rodríguez MD Unavailable Denny Rodríguez MD Primary Care Provider [phone] Denny Rodríguez MD Unavailable [phone] Kita TEACHER EMOTIONALLY IMPAIRED, Zenobia Unavailable Keesha TEACHER EMOTIONALLY IMPAIRED, Trista R Unavailable Denny Rodríguez MD Primary Care Provider [phone] CHARLENE RODRIGUEZ Referring Unavailable RODRÍGUEZ, DENNY SAHIL [...] Admitting Unavailable Kaftan DO Eliceo R Unavailable [phone] Yomaira BELTRAN Attending Unavailable KAFTAN, G KENNETH Admitting Unavailable KIESHA, Nathan R Attending Unavailable KIESHA, Nathan R Admitting Unavailable KIESHA, Nathan R Admitting Unavailable KIESHA, Nathan R Attending Unavailable KAFTAN, G KENNETH Admitting Unavailable KAFTAN, G KENNETH Attending Unavailable KAFTAN, G KENNETH Admitting Unavailable KAFTAN, G KENNETH Attending Unavailable Denny Rodríguez MD Primary Care Provider [phone] STEPH KEANE Attending Unavailable STEPH KEANE Admitting [...] Care Provider Denny Rodríguez MD Unavailable Kita TEACHER EMOTIONALLY IMPAIRED, Zenobia Unavailable Keesha TEACHER EMOTIONALLY IMPAIRED, Trista R Unavailable [phone] ELICEO BELTRAN Attending Unavailable KIESHA, NATHAN Attending [...] Known Medication Allergies]Propensity to adverse reactions (disorder)[facility] Medications Current Medications MedicationDrug Class(es)DatesSig (Normalized)Sig (Original)acetaminophen 325 mg / butalbital 50 mg / caffeine 40 mg oral tablet (14 sources)Barbiturate, Central Nervous System Stimulant, MethylxanthineStart: 02-19-2024 End: 02-10-4069hyhe 1 tablet by mouth every six hours for headache bxhbherjbj-eanxaozhmyjny-pxghccuv 50-325-40 MG tablet Indications: Other migraine without status migrainosus, not intractable Take 1 tablet by mouth every 6 (six) hours if needed for headaches 20 tablet 02/19/2024 05/01/2025 Discontinuedatenolol 25 mg oral tablet (4 sources)beta-Adrenergic BlockerStart: 37-02-1925uydj 1 mg by mouth once daily atenolol 25 mg Tab mg tab(s), Oral, Daily, Refills(s) 0 Start Date: 02/02/21 Status: OrderedStart: 08-06-2017 End: 21-51-7766xxnh 1 tablet by mouth once dailyAtenolol 50 mg tablet Discontinued 50 MG PO Daily August 06, 2017 12:00am October 16, 2018 3 :34pmbaclofen suppository 10 mg (CPD) (8 sources)Start: 65-73-5747mkupojjl suppository 10 mg (CPD) Indications: High- tone pelvic floor dysfunction , Chronic pelvic pain in female Unwrap and insert one suppository vaginally daily at bedtime. 30 Suppository 2 08/24/2023 Active Comment on above:Unwrap and insert one suppository vaginally daily at bedtime. Blood Glucose Monitoring Suppl (D-Care Glucometer) w/Device kit (20 sources)Start: 08-20-2025 End: 25-15-1665Mdjjr Glucose Monitoring Suppl (D-Care Glucometer) w/Device kit Indications: Gestational diabetes mellitus (GDM), antepartum, gestational diabetes method of control unspecified ([facility]) , Elevated glucose tolerance test 1 kit Daily Use four times daily to check FSBS. In the morning prior to breakfast & 1 hour after each meal for a total of 4times daily. 1 kit 08/20/2025 08/20/2026 Activecephalexin 500 mg oral capsule (6 sources)Cephalosporin AntibacterialStart: 02-14-2021 End: 19-49-9487pkkl 1 capsule by mouth every twelve hoursKeflex 500 mg Cap 500 mg = 1 cap(s), Oral, q12hr, X 7 day(s), # 14 cap(s), Refills(s) 0 Start Date: 07/14/22 Stop Date: 07/21/22 Status: OrderedStart: 03-14-2019 End: 95-84-8985rcnd 1 capsule by mouth every twelve hoursCephalexin (Keflex) 500 mg capsule Discontinued 500 MG PO Q12H 14 March 14, 2019 12:00am August 04, 2019 8:18amcyclobenzaprine hydrochloride 5 mg oral tablet (20 sources)Muscle RelaxantStart: 12-30-2024 End: 39-58-7141vzlv 1 tablet by mouth in the morning, [...] 30 tablet 12/30/2024 01/09/2025 ActiveStart: 05-01-2023 End: 32-10-8812tkbe 1 tablet by mouth at bedtime as neededcyclobenzaprine (FLEXERIL) 5 mg tablet Indications: Dysmenorrhea , Chronic pelvic pain in female Take 1 tablet by mouth at bedtime as needed. 30 tablet 1 05/01/2023 ActiveStart: 51-08-5845agqc 1 tablet by mouth three times daily [...] hydrochloride 4 mg oral tablet (10 sources)Start: 74-56-9235ppjt 1 mg by mouth three times dailycyproheptadine 4 mg Tab mg tab(s), Oral, TID, Refills(s) 0 Start Date: 02/02/21 Status: Ordered Repeat number: 1Dasetta oral tablet (1 source)Start: 63-45-0346alic 1 tablet by mouth once dailyDasetta oral tablet 1 tab(s), Oral, Daily, Refill(s) 0, control/menstrual regulation Start Date: 11/23/16 Status: Ordereddocusate sodium 100 mg oral capsule (7 sources)Start: 11-30-2022 End: 27-19-9015djfa 1 capsule by mouth twice daily as needed for constipation Docusate Sodium (DSS) 100 MG capsule Take 1 capsule (100 mg) by mouth 2 times daily as needed for constipation (Vaginal Delivery) for up to 10 days. 60 capsule 0 12/01/2022 12/31/2022 ActiveStart: 07-14-2022 End: 85-25-8726wnxi 1 capsule by mouth twice dailyColace 100 mg Cap 100 mg = 1 cap(s), Oral, BID, X 10 day(s), # 20 cap(s), Refills(s) 0 Start Date: 07/14/22 Stop Date: 07/24/22 Status: Orderedelagolix 150 mg oral tablet (13 sources)Start: 07-16-2023 End: 49-59-4858cmsz 1 tablet by mouth once dailyelagolix (ORILISSA) 150 mg tablet Take 1 tablet (150 mg) by mouth once daily. 30 tablet 11 07/16/2023 07/15/2024 ActiveStart: 54-41-9988qwuz 1 tablet by mouth twice dailyOrilissa 200 MG Oral Tablet take 1 tablet by mouth twice a day Quantity: 60 Refills: 4 Ordered: 09-Feb-2022 Charlene Rodriguez DO Start : 09-Feb-2022 ActiveComment on above:Take 1 tablet (150 mg) by mouth once daily.ergocalciferol 0.05 mg oral capsule (1 source)Provitamin D2 CompoundStart: 36-31-5141Luyharg D2 2000 intl units oral capsule Oral, Daily, Refills(s) 0 Start Date: 02/02/21 Status: OrderedEthinyl Estradiol / Levonorgestrel (8 sources)Progestin, Estrogen, Progestin-containing Intrauterine DeviceStart: 04-03-2024 End: 36-41-8695zzzmmtbpzaffmz-ethinyl estradiol (Jolessa) 0.15-0.03 MG tablet Indications: Uses control TAKE1 TABLET BY MOUTH EVERY MORNING 91 tablet 3 04/03/2024 08/18/2024 Discontinued (Other)Start: 91-69-2431slidozuhipxbhq- ethinyl estradiol (Jolessa) 0.15-0.03 MG tablet Indications: Uses control TAKE1 TABLET BY MOUTH EVERY MORNING 91 tablet 3 04/03/2024 ActiveStart: 01-10-2024 End: 60-25-2422hpfl 1 tablet by mouth in the morning, then take 1 tablet by mouth once dailylevonorgestrel-ethinyl estradiol (Jolessa) 0.15-0.03 MG tablet Indications: Uses control Take1 tablet by mouth in the morning. Take 1 tablet by mouth daily. 90 tablet 0 01/10/2024 04/09/2024 Activeethinyl estradiol 0.035 mg / norgestimate 0.25 mg oral tablet (4 sources)Progestin, EstrogenStart: 22-15-5843ntscidwprudo-ethinyl estradiol (Ortho-Cyclen) 0.25-35 MG-MCG tablet 1 (one) time each day at the same time. 0 01/15/2023 ActiveStart: 20-93-1158lbzv 1 tablet by mouth once dailyNorgestimate- Ethinyl Estradiol 0.25-35 mg-mcg tablet Active 1 TAB PO Daily August 04, 2019 12:00amMono-Linyah 0.25-35 MG-MCG Oral for 28 Not-TakinghydrOXYzine hydrochloride 25 mg oral tablet (10 sources)AntihistamineStart: 92-15-1466qcbz 1 mg by mouth four times daily hydrOXYzine hydrochloride 25 mg Tab mg tab(s), Oral, QID, Refills(s) 0 Start Date: 02/02/21 Status: Ordered Repeat number: 1hyoscyamine sulfate 0.125 mg oral tablet (10 sources)Start: 25-26-5958qadr 1 tablet by mouth every six hoursLevsin 0.125 mg SL Tab 0.125 mg = 1 tab(s), Oral, q6hr, # 20 tab(s), Refills(s) 1, Pharmacy: [facility], 161, cm, 03/10/21 11:21:00 EDT, Height/Length Dosing, 56, kg, 03/10/21 11:21:00 EDT, Weight Dosing Start Date: 03/10/21 Status: Ordered Quantity: 20.0 Unit: tab(s) Repeat number: 2ibuprofen 600 mg oral tablet (15 sources)Nonsteroidal Anti-inflammatory DrugStart: 01-23-2022 End: 87-32-4012orbl 1 tablet by mouth every six hoursibuprofen 600 mg Tab 600 mg = 1 tab(s), Oral, q6hr, # 40 tab(s), Refills(s) 0, [facility]acy: [facility], 157, cm, 01/23/22 7:20:00 EST, Height/Length Dosing, 55, kg, 01/23/22 7:20:00 EST, WeightDosing Start Date: 01/23/22 Status: Ordered Quantity: 40.0 Unit: tab(s) Repeat number: 1insulin glargine-yfgn (Semglee-yfgn) 100 UNIT/ML pen (8 sources)Start: 80-52-7396qqxqgzg glargine-yfgn (Semglee-yfgn) 100 UNIT/ML pen Inject 13 Units under the skin at bedtime 09/15/2025 Activeinsulin glargine-yfgn 100 unit/mL (3 mL) insulin pen (16 sources)Start: 07-66-9450mgqebrv glargine-yfgn 100 unit/mL (3 mL) insulin pen Indications: Essential hypertension affecting in third trimester Prime with 2 units and give 5 units every morning and 23 units subQ at bedtime. 15 mL 3 09/28/2025 ActiveStart: 09-21-2025 End: 71-90-9414ruzpluh glargine-yfgn 100 unit/mL (3 mL) insulin pen Indications: Essential hypertension affecting in third trimester Prime with 2 units and give 5 units every morning and 20 units subQ at bedtime. 15 mL 3 09/21/2025 09/28/2025 DiscontinuedStart: 00-00-9207rvdjkoy glargine-yfgn 100 unit/mL (3 mL) insulin pen Indications: Essential hypertension affecting in third trimester Prime with 2 units and give 5 units every morning and 20 units subQ at bedtime. 15 mL 3 09/21/2025 ActiveStart: 09-17-2025 End: 03-83-4566xvgpwls glargine-yfgn 100 unit/mL (3 mL) insulin pen Indications: Essential hypertension affecting in third trimester Prime with 2 units and give 5 units every morning and 17 units subQ at bedtime. 15 mL 3 09/17/2025 09/21/2025 DiscontinuedStart: 36-37-9300urchvhk glargine-yfgn 100 unit/mL (3 mL) insulin pen Indications: Essential hypertension affecting in third trimester Prime with 2 units and give 5 units every morning and 17 units subQ at bedtime. 15 mL 3 09/17/2025 ActiveStart: 09-15-2025 End: 60-77-9140kvqvzbw glargine-yfgn 100 unit/mL (3 mL) insulin pen Indications: Essential hypertension affecting in third trimester Prime with 2 units and give 17 units subQ at bedtime. 15 mL 3 09/15/2025 09/17/2025 Discontinued Start: 13-27-3613wfbtytw glargine-yfgn 100 unit/mL (3 mL) insulin pen Indications: Essential hypertension affecting in third trimester Prime with 2 units and give 17 units subQ at bedtime. 15 mL 3 09/15/2025 ActiveStart: 09-10-2025 End: 70-44-8581lhgemjn glargine-yfgn 100 unit/mL (3 mL) insulin pen Indications: Essential hypertension affecting in third trimester Prime with 2 units and give 13 units subQ at bedtime. 15 mL 3 09/10/2025 09/15/2025 Discontinued Start: 56-10-5044ddzycxv glargine-yfgn 100 unit/mL (3 mL) insulin pen Indications: Essential hypertension affecting in third trimester Prime with 2 units and give 13 units subQ at bedtime. 15 mL 3 09/10/2025 ActiveStart: 09-04-2025 End: 47-94-6095rgdaad 2 [IU] by subcutaneous injection once, then inject 10 [IU] by subcutaneous injection at bedtimeinsulin glargine-yfgn 100 unit/mL (3 mL) insulin pen Indications: Diet controlled gestational diabetes mellitus (GDM) in second trimester , Essential hypertension affecting in third trimester Prime with 2 units and give 10 units subQ at bedtime. 15 mL 3 09/04/2025 09/10/2025 DiscontinuedStart: 23-73-4951xovxea 2 [IU] by subcutaneous injection once, then inject 10 [IU] by subcutaneous injection at bedtimeinsulin glargine- yfgn 100 unit/mL (3 mL) insulin pen Indications: Diet controlled gestational diabetes mellitus (GDM) in second trimester , Essential hypertension affecting in third trimester Prime with 2 units and give 10 units subQ at bedtime. 15 mL 3 09/04/2025 Activeisopropyl alcohol 0.7 ml/ml medicated pad (20 sources)Start: 62-27-1013Dbjyydp Swabs (Alcohol Prep Pad) 70 % pads Indications: Gestational diabetes mellitus (GDM), antepartum, gestational diabetes method of control unspecified ([facility]) , Elevated glucose tolerance testApply 1 Pad topically Daily Use four times daily to check FSBS. 150 each 3 08/20/2025 Activeiv contrast (will be provided with radiology test) (12 sources)Start: 42-76-2228xd contrast (will be provided with radiology test) [...] 200 mg oral tablet (20 sources)beta-Adrenergic BlockerStart: 62-36-7775idru 1 tablet by mouth in the morninglabetalol (Normodyne) 200 MG tablet Indications: Gestational Hypertension Take 1 tablet (200 mg) bymouth in the morning and 1 tablet (200 mg) before bedtime. 60 tablet 3 09/03/2025 ActiveStart: 07-30-2025 End: 84-43-5803oetk 1 tablet by mouth in the morninglabetalol (Normodyne) 100 MG tablet Indications: Hypertension, unspecified type Take 1 tablet (100 mg) by mouth in the morning and 1 tablet (100 mg) before bedtime. 60 tablet 5 07/30/2025 09/03/2025 DiscontinuedStart: 11-28-2022 End: 43-23-3881uqybbzroq (Normodyne,Trandate) injection 20 mgStart: 11-28-2022 End: 05-82-9052sfoubfzqd (Normodyne,Trandate) injection 20 mgStart: 11-28-2022 End: 76-24-3213offengltz (Normodyne,Trandate) 5 MG/ML injection - Pyxis ADS Override Pulltake 2 tablets by mouth three times dailylabetaloL (NORMODYNE) 100 mg tablet Take 2 tablets (200 mg total) by mouth 3 (three) times a day. Active magnesium oxide 400 mg oral tablet (9 sources)Start: 05-01-2025 End: 03-06-4655feep 1 tablet by mouth once dailymagnesium oxide (Mag-Ox) 400 MG tablet Indications: headache in first trimester ([facility])Take 1 tablet (400 mg) by mouth Daily 30 tablet 3 05/01/2025 05/31/2025 Activemeloxicam 15 mg oral tablet (15 sources)Nonsteroidal Anti-inflammatory DrugStart: 02-02-2021 End: 44-96-9351ntsu 1 tablet by mouth once dailymeloxicam (Mobic) 15 MG tablet Indications: Chronic right shoulder pain , Scapular dyskinesis Take 1 tablet (15 mg) by mouth Daily 30 tablet 3 12/30/2024 05/01/2025 Mabbudgurdck45 hr metoprolol succinate 25 mg extended release oral tablet (20 sources)beta-Adrenergic BlockerStart: 10-15-2024 End: 27-38-6398avob 1 tablet by mouth once dailymetoprolol succinate XL (Toprol- XL) 25 MG 24 hr tablet Indications: Hypertension, unspecified type Take 1 tablet by mouth daily 90 tablet 1 12/30/2024 ActiveStart: 88-33-8827erwb 1 tablet by mouth once dailymetoprolol succinate XL (Toprol-XL) 25 MG 24 hr tablet Indications: Hypertension, unspecified type (CMS/HCC) Take 1 tablet by mouth daily 90 tablet 1 04/23/2024 ActiveStart: 90-44-4933kinu 1 tablet by mouth once dailymetoprolol succinate XL (Toprol-XL) 25 MG 24 hr tablet Indications: Hypertension, unspecified type (CMS/HCC) Take 1 tablet by mouth daily 90 tablet 1 10/23/2023 ActiveStart: 02-27-2023 End: 30-57-1710rrfcyimsgh succinate ER (TOPROL XL) 25 mg 24 hr tabletnaproxen 500 mg delayed release oral tablet (20 sources)Nonsteroidal Anti-inflammatory DrugStart: 61-56-8479rjuw 1 tablet by mouth twice dailynaproxen 500 mg oral enteric coated tablet 500 mg = 1 tab(s), Oral, BID, # 28 tab(s), Refills(s) 0 Start Date: 11/07/21 Status: Ordered Quantity: 28.0 Unit: tab(s) Repeat number: 1Start: 03-04-2021 End: 34-57-6716xhwb 1 tablet by mouth twice dailynaproxen 500 mg Tab 500 mg = 1 tab(s), Oral, BID, Take one tab by mouth two times a day, # 14 tab(s), Refills(s) 0, [facility] [place] [facility] 157, cm, 03/04/21 7:22:00 EDT, Height/Length Dosing,52, kg, 03/04/21 7:22:00 EDT, Weight Dosing Start Date: 03/04/21 Status: Ordered Quantity: 14.0 Unit:tab(s) Repeat number: 1Start: 11-02-2018 End: 05-01-2355jpvj 1 tablet by mouth twice daily as [...] (5 sources)Dihydropyridine Calcium Channel BlockerStart: 11-28-2022 End: 60-62-7931ZRWVpzktdr XL (Procardia XL) 30 MG 24 hr tablet Take 1 tablet (30 mg) by mouth daily. Do not crush,chew, or split. Do not start before December 02, 2022. 90 tablet 0 12/02/2022 12/02/2023 Activenorethindrone acetate 5 mg oral tablet (20 sources)Start: 05-17-2023 End: 13-21-9679zqpw 2 tablets by mouth once dailynorethindrone (AYGESTIN) 5 mg tablet Take 2 tablets by mouth once daily. 60 tablet 5 01/03/2024 07/01/2024 ActiveStart: 04-11-2023 End: 93-82-9847ihsp 1 tablet by mouth once dailynorethindrone (AYGESTIN) 5 mg tablet Take 1 tablet by mouth once daily. 30 tablet 11 04/11/2023 ActiveStart: 81-42-8543badf 1 tablet by mouth once dailyNorethindrone Acetate [...] mg/ml rectal foam (2 sources)Start: 07-14-2022 End: 56-55-6032zxbn 15 g rectal route twice dailyProctoFoam 1% Foam apply, Rectal, BID for 7 day(s), 15 gm, Refill(s) 0 Start Date: 07/14/22 Stop Date: 07/21/22 Status: OrderedPrenatal Multivitamins with Vitamin B Complex, Vitamin C, Minerals and L-Methylfolate oral capsule (9 sources)Start: 53-59-3524Hmibtzyj Multivitamins with Vitamin B Complex, Vitamin C, Minerals and L-Methylfolate oral capsule 1 cap(s), Oral, Daily, 30 cap(s), Refill(s) 0 Start Date: 07/14/22 Status: Ordered Quantity: 30.0 Unit: cap(s) Repeat number: 1Start: 25-45-2585Xjfmjofq Multivitamins with Vitamin B Complex, Vitamin C, Minerals and L-Methylfolate oral capsule 1 cap(s), Oral, Daily, 30 cap(s), Refill(s) 0 Start Date: 07/14/22 Status: OrderedPrenatal Vit-Fe Fumarate-FA ( Vitamin) 27-0.8 MG tablet (3 sources) Vit-Fe Fumarate-FA ( Vitamin) 27-0.8 MG tablet Take by mouth. 0 ActivePrenatal Vit-Fe Fumarate-FA ( Vitamins) 28-0.8 MG tablet (20 sources)Start: 05-01-2025 End: 58-88-7124cjdd 1 tablet by mouth once dailyPrenatal Vit-Fe Fumarate-FA ( Vitamins) 28-0.8 MG tablet Indications: , unspecified gestational age ([facility]) , Encounter for supervision of normal first in first trimester([facility]) Take 1 tablet by mouth Daily 30 tablet 11 05/01/2025 05/01/2026 ActiveStart: 05-01-2025 End: 34-81-7998tyal 1 tablet by mouth once dailyPrenatal Vit-Fe Fumarate-FA ( Vitamins) 28-0.8 MG tablet Indications: , unspecified gestational age , Encounter for supervision of normal first in first trimester Take 1 tablet by mouth Daily 30 tablet 11 05/01/2025 05/01/2026 Active SUMAtriptan 100 mg oral tablet (10 sources)Serotonin-1b and Serotonin-1d Receptor AgonistStart: 15-12-2347foyq 1 mg by mouth onceImitrex 100 mg Tab mg tab(s), Oral, Once, Refills(s) 0 Start Date: 02/02/21 Status: Ordered Repeat number: 1Surgical Lubricant Jelly gel (12 sources)Start: 78-94-5362Bmdlssgl Lubricant Jelly gel For MRI Female Pelvis, MRI department to provide. Administer intra-vaginal Surgilube immediately prior the MRI procedure (total amount to patient toleranace). 1 g 0 05/17/2023 Active Comment on above:For MRI Female Pelvis, MRI department to provide. Administer intra-vaginal Surgilube immediately prior the MRI procedure (total amount to patient toleranace).tiZANidine 4 mg oral tablet (3 sources)Central alpha-2 Adrenergic AgonistStart: 20-06-5552lfmt 1 mg by mouth every eight hourstiZANidine 4 mg Tab mg tab(s), Oral, q8hr, Refills(s) 0 Start Date: 02/02/21 Status: OrderedtraMADol hydrochloride 50 mg oral tablet (10 sources)Opioid AgonistStart: 51-44-7977adru 1 tablet by mouth every four hours as needed for paintraMADol (ULTRAM) 50 mg tablet Indications: Pelvic pain in female Take 1 tablet by mouth every 4 hours as needed for pain. 20 tablet 0 08/30/2023 ActiveStart: 95-11-6339cbfm 1 tablet by mouth every six hourstraMADol HCl - 50 MG Oral Tablet TAKE 1 TABLET Every 6 hours Quantity: 20 Refills: 0 Ordered: 18-Aug-2020 Charlene Rodriguez DO Start : 18-Aug-2020 ActiveStart: 03-12-2019 End: 42-99-9180jhjz 1 tablet by mouth every four hours as needed for pain Tramadol 50 mg tablet Discontinued 50 MG PO Q4H as needed for pain 30 5 March 12, 2019 12:00am August 04, 2019 8:19amComment on above:Take 1 tablet by mouth every 4 hours as needed for pain.Vitamin D2 2000 intl units oral capsule (9 sources)Start: 46-89-8632dkoh 1 capsule by mouth once dailyVitamin D2 2000 intl units oral capsule Oral, Daily, Refills(s) 0 Start Date: 02/02/21 Status: Ordered Repeat number: 1Start: 05-59-1460Fjfxtyi D2 2000 intl units oral capsule Oral, Daily, Refills(s) 0 Start Date: 02/02/21 Status: Ordered Completed/Discontinued Medications MedicationDrug Class(es)DatesSig (Normalized)Sig (Original)acetaminophen 325 mg oral tablet (4 sources)Start: 11-30-2022 End: 23-27-9912itgf 1 tablet by mouth every six hours as needed for iric701 mg, Oral, Every 6 hours PRN, mild pain (1-3), Starting on Constance 11/30/22 at 0422 Give in addition to any other pain medication ordered at same time for any pain indication. Maximumdose of acetaminophen is 4000 mg from all sources in 24 hours. Alternate ibuprofen and acetaminophen every 3 hours.Start: 11-28-2022 End: 44-97-0289mtbtbnnpqrbqe (Tylenol) tablet 1,000 mgacetaminophen 300 mg / codeine phosphate 30 mg oral tablet (4 sources)Opioid AgonistStart: 01-19-2025 End: 11-10-5693buas 1 tablet by mouth every six hours for painacetaminophen- codeine (Tylenol w/ Codeine #3) 300-30 MG tablet Indications: Pain in female genitalia on intercourse , Endometriosis Take 1 tablet by mouth every 6 (six) hours if needed for severe pain for up to 5 days 20 tablet 01/19/2025 01/24/2025 ExpiredStart: 07-22-2024 End: 86-61-3707lnua 1 tablet by mouth every six hours for painacetaminophen- codeine (Tylenol w/ Codeine #3) 300-30 MG tablet Indications: Dysmenorrhea, unspecified Take 1 tablet by mouth every 6 (six) hours if needed for severe pain for up to 5 days 20 tablet 07/22/2024 07/27/2024 Activeascorbic acid 500 mg oral tablet (5 sources)Vitamin CStart: 10-25-2018 End: 19-97-2340xzey 2 tablets by mouth in the morningASCORBIC ACID WITH ISAURO HIPS 500 MG tablet Take 2 tablets (1,000 mg total) by mouth in the morning.0 10/25/2018 09/04/2025 Discontinued ()aspirin 325 mg / butalbital 50 mg / caffeine 40 mg oral capsule (11 sources)Platelet Aggregation Inhibitor, Barbiturate, Nonsteroidal Anti- inflammatory Drug, Central Nervous System Stimulant, Methylxanthine End: 51-28-4958cvej 1 capsule by mouth every four hours as needed svfclzqont-ipenpkw-fxosuxxk (Fiorinal) 50-325-40 MG capsule Take 1 capsule [...] spray (2 sources)Standardized Chemical AllergenStart: 11-30-2022 End: 81-42-6943Gzjqjtb, As needed, pain, , Starting on Constance 11/30/22 at 0608, Apply to perineal area. Patient is capable and may self administer at bedside.betamethasone 3 mg/ml / betamethasone acetate 3 mg/ml injectable suspension (2 sources)CorticosteroidStart: 11-28-2022 End: 56-47-2456irvwzgiorteeg acetate-betamethasone sodium phosphate (Celestone) injection 12 mgcalcium chloride 0.0014 meq/ml / potassium chloride 0.004 meq/ml / sodium chloride 0.103 meq/ml / sodium lactate 0.028 meq/ml injectable solution (2 sources)Start: 11-28-2022 End: 63-77-4838wluq 125 mL intravenously every dvvb595 mL/hr, IntraVENous, Continuous, Starting on Sun11/28/22 at 0100, Pre-Deliverycetirizine hydrochloride 10 mg oral tablet (17 sources)Histamine-1 Receptor AntagonistStart: 06-09-2025 End: 34-60-5621havd 1 tablet by mouth once dailycetirizine (ZyrTEC ALLERGY) 10 MG tablet Indications: Allergy, sequela Take 1 tablet (10 mg) by mouth Daily 30 tablet 11 06/09/2025 07/15/2025 DiscontinuedchlordiazePOXIDE hydrochloride 5 mg / clidinium bromide 2.5 mg oral capsule (1 source)Anticholinergic, BenzodiazepineStart: 68-34-8298edtk 1 capsule by mouth every eight hourschlordiazePOXIDE-Clidinium 5-2.5 MG 1 capsule before meals Orally Three times a day for 30 day(s) May, Not-Taking chlorhexidine gluconate 20 mg/ml medicated pad (2 sources)Start: 11-28-2022 End: 64-86-9620rvwfl 1 dose topically every six hoursTopical, Every 6 hours, First dose on Sun11/28/22 at 0100, Pre-Delivery Apply to the affected area.&a mp;nbsp; Clean entire abdomen.cholecalciferol 0.125 mg oral capsule (5 sources)Vitamin DStart: 10-25-2018 End: 05-10-8210ypaa 1 capsule by mouth in the morningcholecalciferol, vitamin D3, (VITAMIN D3) 5,000 units capsule Take 1 capsule (5,000 Units total) bymouth in the morning. 0 10/25/2018 09/04/2025 Discontinued ()desogestrel 0.15 mg / ethinyl estradiol 0.03 mg oral tablet (11 sources)Progestin, EstrogenStart: 07-22-2024 End: 22-23-3347kthzhjkvshc-ethinyl estradiol (Apri) 0.15-30 MG-MCG tablet Indications: Dysmenorrhea, unspecified Take 1 tablet by mouth Daily 21 tablet 12 10/20/2024 01/19/2025 Discontinued (Other)diphenhydrAMINE (BENADryl) injection 25 mg (2 sources)Start: 11-30-2022 End: 62-42-3440urms 25 mg intravenously every six hours as neededdiphenhydrAMINE (BENADryl) injection 25 mgNorethindrone-E.Estradiol-Iron (1 source)EstrogenStart: 10-17-2017 End: 67-94-2722hdnb 1 tablet by mouth once dailyNorethindrone-E.Estradiol-Iron (Lo Loestrin Fe) 1 mg-10 mcg (24)/10 mcg (2) tablet Discontinued 1 TAB PO Daily October 17, 2017 1:00am March 12, 2019 6:15amEthinyl Estradiol / Norethindrone (7 sources)EstrogenStart: 12-01-2018 End: 06-65-6569yyac 0.05 ug by mouth once in the eveningnorethindrone ac-eth estradiol (MICROGESTIN 1/20) 1-20 mg-mcg per tablet Take 1 tablet by mouth in t he evening. 0 12/01/2018 09/04/2025 Discontinued ()Start: 12-01-2018 take 0.05 ug by mouth once in the eveningnorethindrone ac-eth estradiol (MICROGESTIN 1/20) 1-20 mg-mcg per tablet Take 1 tablet by mouth in the evening. 0 12/01/2018 ActiveStart: 13-79-8924zsam 1 tablet by mouth once dailyDasetta oral tablet 1 tab(s), Oral, Daily, Refill(s) 0, control/menstrual regulation Start Date: 11/23/16 Status: Orderedfamotidine 20 mg oral tablet (2 sources)Histamine-2 Receptor AntagonistStart: 11-30-2022 End: 29-01-6215nbht 20 mg by mouth twice daily as needed for gastroesophageal reflux zecexic55 mg, Oral, 2 times daily PRN, heartburn, Starting on Constance 11/30/22 at 0608, Renal dose per pharmacy for peptic ulcer prophylaxis.ferrous sulfate 325 mg oral tablet (8 sources)Start: 11-30-2022 End: 10-83-4796zirr 325 mg by mouth twice daily at jkewlqls372 mg, Oral, 2 times daily with meals, First dose on Constance 11/30/22 at 0800, Start if Hgb le ss than 10. End: 94-71-6261gosh 1 tablet by mouth in the morningFerrous Sulfate (IRON PO) Take 1 tablet by mouth in the morning. 09/16/2025 Discontinuedtake 1 tablet by mouth in the morningFerrous Sulfate (IRON PO) Take 1 tablet by mouth in the morning. ActiveFLUoxetine 20 mg oral capsule (17 sources)Serotonin Reuptake InhibitorStart: 23-00-3787pqgd 1 capsule by mouth once dailyFLUoxetine HCl - 20 MG Oral Capsule TAKE 1 CAPSULE Daily Quantity: 30 Refills: 11 Ordered: 02-Jun-2021 Kuldip DAY Charlene Start : 02-Jun-2021 Active Start: 11-02-2018 End: 39-13-1033oong 1 capsule by mouth once dailyFluoxetine (Prozac) 20 mg capsule Discontinued 20 MG PO Daily November 02, 2018 1:00am August 04, 2019 8:19amtake 1 capsule by mouth once dailyFLUoxetine (PROZAC) 10 mg capsule Take 10 mg by mouth once daily. 0 ActiveComment on above:Take 10 mg by mouth once daily.fluticasone propionate 0.05 mg/actuat metered dose nasal spray (16 sources)CorticosteroidStart: 06-22-2025 End: 72-88-9021dyae 1 spray(s) nasal route once dailyfluticasone (Flonase) 50 MCG/ACT nasal spray Indications: Sinusitis, unspecified chronicity, unspecified location Administer 1 spray into each nostril Daily Shake gently. Before first use, prime pump. After use, clean tip and replace cap. 16 g 12 06/22/2025 07/15/2025 Discontinued End: 86-05-5612vlft 1 spray(s) nasal route in the morningfluticasone (Flonase) 50 MCG/ACT nasal spray Administer 1 spray into affected nostril(s) in the morn ing. 09/16/2025 Discontinued End: 14-96-9108jskq 1 spray(s) nasal route in the morningfluticasone propionate (FLONASE) 50 mcg/actuation nasal spray Administer 1 spray into each nostril in the morning. 09/04/2025 Discontinued ()lanolin 1000 mg/ml topical cream (2 sources)Start: 11-30-2022 End: 58-57-2121Wewpwmq, As needed, dry skin, nipple discomfort, Starting on Sun11/30/22 at 0608, Apply to affected area.500 ml magnesium sulfate 40 mg/ml injection (4 sources)Start: 11-28-2022 End: 39-85-2543ijlpsppqe sulfate 20 GM/500ML infusionStart: 11-28-2022 End: 71-79-8731bkxftsudp sulfate 20 GM/500ML infusion - Pyxis ADS Override Pull metoclopramide 10 mg oral tablet (2 sources)Dopamine-2 Receptor AntagonistStart: 17-13-9996mcbb 1 tablet by mouth every eight hoursReglan 10 MG 1 tablet before meals Orally tid for 30 day(s) March, Not-TakingmiSOPROStol 0.2 mg oral tablet (2 sources)Prostaglandin E1 AnalogStart: 11-30-2022 End: 32-61-8047tjZJDAKVlyv (Cytotec) tablet 1,000 mcgStart: 11-30-2022 End: 60-99-0434hwYXGOMUyqb (Cytotec) tablet 1,000 mcgmiSOPROStol (Cytotec) split tablet 25 mcg (2 sources)Start: 11-28-2022 End: 97-34-7576drhd 1 tablet vaginal route every four hoursmiSOPROStol (Cytotec) split tablet 25 mcg1 ml morphine sulfate 4 mg/ml injection (4 sources)Opioid AgonistStart: 11-28-2022 End: 47-69-2403ewadnsff sulfate (PF) injection 4 mgnitrofurantoin, macrocrystals 25 mg / nitrofurantoin, monohydrate 75 mg oral capsule (6 sources)Nitrofuran AntibacterialStart: 00-15-4085Kjjwdqlfpdjhxc Monohyd Macro 100 MG Oral Capsule TAKE 1 CAPSULE Other Please take one capsule aftersexual intercourse to prevent UTI Quantity: 30 Refills: 11 Ordered: 01-Apr-2021 Teri Chau MD Start : 01-Apr-2021 Active2 ml ondansetron 2 mg/ml injection (12 sources)Serotonin-3 Receptor AntagonistStart: 11-29-2022 End: 60-78-9863pyyg 4 mg intravenously every six hours as needed for nausea and vomitingondansetron (Zofran) injection 4 mgStart: 33-30-7564ybty 1 tablet by mouth every six hours as needed for nauseaZofran 4 mg Tab 1 tab(s), Oral, q6hr, PRN Nausea, # 8, Refills(s) 0 Start Date: 07/14/22 Status: Ordered Quantity: 8.0 Unit: Repeat number: 1Start: 23-22-4293yiqa 1 tablet by mouth three times daily Zofran 4 MG 1 tablet Orally THREE TIMES A DAY for 30 day(s) May, Not-Takingondansetron ODT (Zofran-ODT) disintegrating tablet 4 mg (2 sources)Start: 11-30-2022 End: 32-70-9476hoxj 1 tablet by mouth every eight hours [...] for 1 hour. Then discontinue.Start: 11-29-2022 End: 05-94-2505vnugexws (Pitocin) 30 units in 500 mL infusionStart: 11-29-2022 End: 66-42-2879feryuqmm (Pitocin) 30 units in 500 mL infusionphenazopyridine hydrochloride 200 mg oral tablet (10 sources)Start: 42-89-9650zquk 1 tablet by mouth three times dailyPyridium 200 mg Tab 200 mg = 1 tab(s), Oral, TID, Take one tab by mouth three times a day for threedays, # 9 tab(s), Refills(s) 0, Pharmacy: [facility] 858, 157, cm, 03/04/21 7:22:00 EDT, Height/Length Dosing, 52, kg, 03/04/21 7:22:00 EDT, Weight Dosing Start Date: 03/04/21 Status: Ordered Quantity: 9.0 Unit: tab(s) Repeat number: 1predniSONE 10 mg oral tablet (3 sources)Start: 09-10-2023 End: 22-62-7579zxdo 2 tablets by mouth twice daily, then [...] 09/10/2023 01/10/2024 Discontinued (Therapy completed)Start: 03-12-2019 End: 25-34-4924pvxh 3 tablets by mouth once daily at mealtimePrednisone 20 mg tablet Discontinued 60 MG PO Daily 9 March 12, 2019 12:00am August 04, 2019 8:18am administer with food or milkpromethazine hydrochloride 12.5 mg oral tablet (13 sources)PhenothiazineStart: 05-25-2025 End: 35-67-0020vuht 1 tablet by mouth every six hours [...] nausea. 30 tablet 2 508/ Discontinued End: 96-16-3015vxcz 12.5 mg rectal route every six hours as needed for nausea and vomitingpromethazine (PHENERGAN) 12.5 mg suppository Insert 1 suppository (12.5 mg total) into the rectum every 6 (six) hours as needed for nausea or vomiting. 09/04/2025 Discontinued ()rizatriptan 5 mg disintegrating oral tablet (5 sources)Serotonin-1b and Serotonin-1d Receptor AgonistStart: 10-24-2018 End: 77-87-8283tdqfppnvrdv WINDSHIELD REPAIR TECHNICIAN (MAXALT-WINDSHIELD REPAIR TECHNICIAN) 5 mg disintegrating tablet Dissolve 1 tablet (5 mg total) on tongue asneeded. 0 10/24/2018 09/04/2025 Discontinued ()5 ml sodium chloride 9 mg/ml injection (2 sources)Start: 11-28-2022 End: mL, IntraVENous, Every 12 hours scheduled (2 times per day), First dose on Sun11/28/22 at 0900, Pre-Deliveryvitamin b12 1 mg extended release oral tablet (5 sources)Vitamin P30Rrccl: 10-25-2018 End: 58-88-7932xuln 1 tablet by mouth in the morningcyanocobalamin, vitamin B- 12, (VITAMIN B-12) 1,000 mcg tablet extended release Take 1 tablet (1 mg total) by mouth in the morning. 0 10/25/2018 09/04/2025 Discontinued ()witch yesi 500 mg/ml medicated pad (2 sources)Start: 11-30-2022 End: 32-46-0522Cmqzzwt, As needed, hemorrhoids, For perineal pain or discomfort, Starting on Sun11/30/22 at 0608, Apply to perineal area. Patient is capable and may self administer at bedside. Problems Active Problems Problem ClassificationProblemDateDocumented DateEpisodic/ChronicAllergic reactions (1 source)Allergic reaction; Translations: [Allergy, unspecified, initial encounter]01-41-0803BgccdbsyRhludzn on above:Problem List clean-up per request of Phys. EHR CmteAnxiety disorders (20 sources)Anxiety; Translations: [Anxiety state, unspecified]Onset: 10-08-2020 81-38-0454PguavrzObqoibv on above:Problem List clean-up per request of Phys. EHR CmteCardiac dysrhythmias (20 sources)Paroxysmal tachycardia; Translations: [Paroxysmal tachycardia, unspecified]Onset: 501685-14-0306MiyukhcEykzpltgbpliq of surgical procedures or medical care (1 source)Postoperative retention of urine; Translations: [Other postprocedural complications and disorders of genitourinary system]85-32-3136WlgmkscuUbzlaif on above:Problem List clean-up per request of Phys. EHR CmteDiabetes mellitus without complication (2 sources)Abnormal glucose tolerance test; Translations: [Other abnormal glucose]92-58-6985VgztorfvGkjttgwt or abnormal glucose tolerance complicating ; childbirth; or the puerperium (20 sources)Gestational diabetes mellitus; Translations: [Gestational diabetes mellitus in , diet controlled]Onset: 084479-59-3046Nzlqyvya Endometriosis (20 sources)Endometriosis (clinical); Translations: [Endometriosis, site unspecified]Onset: 31-47-8403EoshdafCqejdaijh hypertension (20 sources)Hypertensive disorder; Translations: [Essential (primary) hypertension]Onset: 630991-38-6122SsxnkezQrsmnbdbxvihw symptoms and ill- defined conditions (20 sources)Microscopic hematuria; Translations: [Nocturia]90-32-1434Ysblktji Comment on above:Problem List clean-up per request of Phys. EHR CmteHeadache; including migraine (20 sources)Migraine; Translations: [Migraine, unspecified, not intractable, without status migrainosus]Onset: 221599-47-4721EmksexyPibedco on above: Problem List clean-up per request of Phys. EHR CmteHeadache; including migraine (14 sources)Headache; Translations: [Headache, unspecified]Onset: 01-31-2023 78-34-3072KgqdbomsXkluryrdjpo (1 source)Hemorrhoids; Translations: [Unspecified hemorrhoids]Onset: 07-14-2022 EpisodicHypertension complicating ; childbirth and the puerperium (20 sources)Hypertension complicating ; Translations: [Unspecified maternal hypertension, unspecified trimester]Onset: hronic Hypertension complicating ; childbirth and the puerperium (16 sources)Severe pre-eclampsia complicating childbirth; Translations: [Severe pre-eclampsia, third trimester]Onset: 13-11-3320JedeumjcBlmmx disorders and dislocations; trauma-related (20 sources)Disorder of left patellofemoral joint; Translations: [Patellofemoral disorders, left knee]Onset: 978091-36-4281GbuaaczTpxfl disorders and dislocations; trauma-related (20 sources)Disorder of right patellofemoral joint; Translations: [Patellofemoral disorders, right knee]Onset: hronic Menstrual disorders (20 sources)Dysmenorrhea; Translations: [Dysmenorrhea, unspecified]Onset: 149019-65-0977DvupimuMzlawo and vomiting (1 source)Nausea and vomiting; Translations: [Nausea with vomiting, unspecified] EpisodicNonspecific chest pain (2 sources)Chest pain; Translations: [Chest pain, unspecified]30-27-4658Mslcnnqc Comment on above:Problem List clean-up per request of Phys. MIKAYLA CmteNutritional deficiencies (20 sources)Vitamin D deficiency; Translations: [Vitamin D deficiency, unspecified]Onset: 373257-59-1147AmzrkwtBftfc acquired deformities (20 sources)Scoliosis deformity of spine; Translations: [Scoliosis, unspecified] Onset: 859280-29-9946VykeathJgrgh bone disease and musculoskeletal deformities (10 sources)Disorder of vscl71-66-2605OaidwnkbHufsmve on above:right shoulder right shoulderOther circulatory disease (1 source)Elevated blood-pressure reading without diagnosis of hypertension; Translations: [Elevated blood-pressure reading, without diagnosis of hypertension]Onset: 80-80-0264LinipgsxArrbv complications of ; puerperium affecting management of mother (1 source)Delayed AND/OR secondary hemorrhage; Translations: [Delayed and secondary hemorrhage]Onset: 33-39-4383XcqbamlrNuznx complications of (1 source)Finding related to ; Translations: [Other specified related conditions, unspecified trimester]Onset: 75-26-2693PmhqzrunXqrzf complications of (1 source)Supervision of with other poor reproductive or obstetric history, unspecified trimester; Translations: [Supervision of with other poor reproductive or obstetric history, unspecified trimester]Onset: 37-48-2058PmmkymtjFpywi connective tissue disease (1 source)Diastasis recti; Translations: [Separation of muscle (nontraumatic), other site]EpisodicOther female genital disorders (10 sources)Abnormal uterine iujsmtxn39-19-2814YqvcfwgTqaor female genital disorders (1 source)Dyspareunia; Translations: [Other specified dyspareunia]ChronicOther female genital disorders (20 sources)Pain in female genitalia on intercourse; Translations: [Unspecified dyspareunia]Onset: 748305-37-8373SagewvnNanjm female genital disorders (1 source)Unspecified dyspareunia; Translations: [Unspecified dyspareunia]Onset: 97-17-6622JohdstfQebbq female genital disorders (2 sources)Pelvic floor dysfunction; Translations: [Other specified conditions associated with female genital organs and menstrual cycle]EpisodicOther gastrointestinal disorders (18 sources)Constipation; Translations: [Constipation, unspecified]Onset: 933015-34-7743XjbwqrviEavjcya on above:Problem List clean-up per request of Phys. EHR CmteOther gastrointestinal disorders (1 source)Constipation, unspecified; Translations: [Constipation, unspecified] Onset: 53-83-7203GdyifoaeZoeem hereditary and degenerative nervous system conditions (20 sources)Finding of scapular structure; Translations: [Other specified extrapyramidal and movement disorders]Onset: 337826-97-3466KperlulVjvbb nervous system disorders (9 sources)Chronic pain; Translations: [Other chronic pain]Onset: 03-29-2023 30-17-8441AihgtqhYtwee nervous system disorders (1 source)Other chronic pain; Translations: [Chronic pelvic pain in female] Onset: 14-85-1911FintgusSairl nervous system disorders (1 source)Paresthesia of left upper limb; Translations: [Paresthesia of skin] 88-06-1632GvwahxpyPsdndru on above:Problem List clean-up per request of Phys. EHR CmteOther nervous system disorders (1 source)Tremor; Translations: [Tremor, unspecified]86-51-5660VxfhebrwTokgysw on above:Problem List clean-up per request of Phys. EHR CmteOther nutritional; endocrine; and metabolic disorders (20 sources)Body mass index 30+ - obesity; Translations: [Obesity, unspecified] Onset: 666248-42-9616ZxwylhpUjjvu and delivery including normal (18 sources); Translations: [Encounter for supervision of normal , unspecified, unspecified trimester]65-20-0681WydsjnpeHzjpt screening for suspected conditions (not mental disorders or infectious disease) (8 sources)Elevated liver enzymes level; Translations: [Other specified abnormal findings of blood chemistry]Onset: 04-18-2022 Resolved: 70-89-6203VftozpioTmpaq upper respiratory disease (20 sources)Allergic rhinitis due to pollen; Translations: [Allergic rhinitis due to pollen]Onset: 877869-62-7677DcqspfyFmfew upper respiratory infections (2 sources)Sinusitis; Translations: [Chronic sinusitis, unspecified]06-22-2025 ChronicResidual codes; unclassified (2 sources)Contraception ; Translations: [Other specified health status] 89-10-9304GvoiixsjIkvmenqb codes; unclassified (2 sources)Gestation period, 13 weeks; Translations: [13 weeks gestation of ]19-46-1975BovmjikyYozuodrl codes; unclassified (2 sources)Gestation period, 17 weeks; Translations: [17 weeks gestation of ]38-89-3208LtbepcwsBghrialz codes; unclassified (2 sources)Gestation period, 20 weeks; Translations: [20 weeks gestation of ]63-15-2219HduiysafOakfscwi codes; unclassified (2 sources)Gestation period, 24 weeks; Translations: [24 weeks gestation of ]00-27-3790SgzgxihjVrsfgduk codes; unclassified (2 sources)Gestation period, 26 weeks; Translations: [26 weeks gestation of ]68-44-8073AjhwqnobSgawzqaj codes; unclassified (2 sources)Gestation period, 27 weeks; Translations: [27 weeks gestation of ]73-55-9654SxpheqvtYioszgkx codes; unclassified (1 source)Gestation period, 28 weeks; Translations: [28 weeks gestation of ]08-62-1240WtfvpyfpEvewvtod codes; unclassified (1 source)28 weeks gestation of ; Translations: [28 weeks gestation of ]Onset: 10-15-4210GqidjtufSgptiqbr codes; unclassified (2 sources)Gestation period, 29 weeks; Translations: [29 weeks gestation of ]39-42-7226ScwfqvdaDktzbddr codes; unclassified (2 sources)Gestation period, 31 weeks; Translations: [31 weeks gestation of ]43-21-3027WcdpmfjaKvartdczrrm; intervertebral disc disorders; other back problems (20 sources)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; Translations: [Other cervical disc displacement, unspecified cervical region] Onset: 029506-75-1823ZgeummnKlrirunyvrew (1 source)MFM consultOnset: 13-78-7237Kheknsachrye (1 source)Gestational DiabetesOnset: 87-18-7398Wmsqoba tract infections (20 sources)Recurrent urinary tract infection; Translations: [Urinary tract infection, site not specified]Onset: 702889-35-8446Ddbtvqfh Past or Other Problems Problem ClassificationProblemDateDocumented DateEpisodic/ChronicAbdominal pain (20 sources)Epigastric pain; Translations: [Epigastric pain]Onset: 07-14-2022 EpisodicAcquired foot deformities (20 sources)Acquired equinus deformity of foot; Translations: [Other acquired deformities of unspecified foot]Onset: 183745-26-3192KrgzcqyiYpmzlmn dysrhythmias (20 sources)Tachycardia; Translations: [Tachycardia, unspecified]Onset: 359740-99-1640FsxquxnxTqnowrjjykl deficiencies (20 sources)Cobalamin deficiency; Translations: [Deficiency of other specified B group vitamins]Onset: 633953-09-6331JqjdjtstQrdvh connective tissue disease (20 sources)Posterior calcaneal exostosis; Translations: [Calcaneal spur, unspecified foot]Onset: 813732-14-5971MbcorshtQpumg disorders of stomach and duodenum (20 sources)Gastroparesis syndrome; Translations: [Gastroparesis]Onset: 265028-08-3561BzinrygxHunop female genital disorders (1 source)Other specified conditions associated with female genital organs and menstrual cycle; Translations:[High-tone pelvic floor dysfunction]Onset: 97-72-5436GarprwjwMsawg female genital disorders (20 sources)Chronic pelvic pain of female; Translations: [Chronic pelvic pain in female]Onset: 441113-30-4309WgrujcfoXzltu gastrointestinal disorders (20 sources)Swallowing painful; Translations: [Dysphagia, unspecified]Onset: 050885-74-7701BgrserjjZjooc gastrointestinal disorders (20 sources)Diarrhea; Translations: [Diarrhea, unspecified]Onset: 03-24-2025 39-38-5534OykiptprAqwpi non-traumatic joint disorders (20 sources)Chronic pain of right upper limb; Translations: [Pain in right shoulder]Onset: 247223-31-9363EwzgktipEfymb nutritional; endocrine; and metabolic disorders (16 sources)Loss of appetite; Translations: [Anorexia]Onset: 05-27-2020 26-82-9713XikhjsmbTypmtwm (15 sources)Vasovagal syncope; Translations: [Syncope and collapse]Onset: 365054-52-0043PtzpixwpLgtejksmyumx (9 sources)PregnancyOnset: 07-14-2022 Resolved: 415332-65-2340ARFEIRT: Highlighted row has been ruled out! Unclassified (1 source)No known active -39-8421 Results Test NameValueInterpretationReference RangeFacilityUS OB BPP W NON-STRESS on 42[place]52[place]5359[place]hc[place], [place] [address] Ultrasound Report Signed Patient: JUHI GAMA MR#: [id number] : 1995 Acct:[id number] Age/Sex: 30 / F ADM Date: 10/03/25 Loc: US Attending Dr: Steph Keane Ordering Physician: Steph Keane Date of Service: 10/03/25 Procedure(s): US OB BPP w non-stress Accession Number(s): [id number] cc: Steph Keane; KAFTAN,G KENNETH The [address] [address] Patient Name: JUHI GAMA MRN: [facility]:[id number] date: 1995 Sex: F Assigned Patient Location: US Current Patient Location: Accession/Order Number: [id number] Exam Date: 10/03/2025 10:53 Report Date: 10/03/2025 [...] Faria M.D. 10/03/2025 11:36 AM Dictation Location: [place] [address] Electronically authenticated by: [id number] Y Date: 10/03/2025 11:36 Dictated By: Will Faria M.D. Signed By: 10/03/25 1138 DD/ 1136 TD/TT: Leather Etcher:TBHRadiology, Radiologist, MD - 10/03/2025 [place] [address] Ultrasound Report Signed Patient: JUHI GAMA MR#: [id number] : 1995 Acct:[id number] Age/Sex: 30 / F ADM Date: 10/03/25 Loc: US Attending Dr: Steph Keane Ordering Physician: Steph Keane Date of Service: 10/03/25 Procedure(s): US OB BPP w non-stress Accession Number(s): [id number] cc: Steph Keane; Yomaira BELTRAN [place] [id number] Patient Name: JUHI GAMA MRN: [id number] date: 1995 Sex: F Assigned Patient Location: US Current Patient Location: Accession/Order Number: [id number] Exam Date: 10/03/2025 10:53 Report Date: 10/03/2025 [...] Faria M.D. 10/03/2025 11:36 AM Dictation Location: [place] [address] Electronically authenticated by: [id number] Y Date: 10/03/2025 11:36 Dictated By: Will Faria M.D. Signed By: 10/03/25 1138 DD/ 1136 TD/TT: Leather Etcher: [facility] HealthcareRadiology Study observation (narrative)N[facility] HealthcareUS OB BPP W NON-STRESSOrdered By: Radiologist Radiology on 79-27-0526[facility] Work Phone: Urinalysis macro (dipstick) panel (U)on 09-30-2025 Bilirubin, UANegativeNegative - 4(70) +++ mg/dLNOMS HealthcareBlood, UANegative Negative - 50 Teodoro/mcLNOMS HealthcareClarity, UAClearNOMS HealthcareColor, UA YellowNOAR HealthcareGlucose, UANegativeNegative - 2000(110) ++++ mg/dLNOAR HealthcareInterpretation and review of laboratory resultsNormalNOUniversity of [facility] Ketones, UANegativeNegative - 160(16) ++++ mg/dLNOAR HealthcareLeukocytes, UA NegativeNegative - 500+++ Robinson/mcLNOAR HealthcareNitrite, UANegativeNegative - PositiveNOAR HealthcarepH, UA6.05 - 9NOAR HealthcareProtein, UANegativeNegative - 2000(20) ++++ mg/dLNOAR HealthcareSpec Grav, UA1.0101 - 1.03NOAR Healthcare Urobilinogen, UA1.00.2 - 12 mg/dLNOReynolds County General [facility] HealthcareUS OB BPP W NON-STRESSon 63-43-2487Cpa[place] [address] Ultrasound Report Signed Patient: JUHI GAMA MR#: [id number] : 1995 Acct:[id number] Age/Sex: 30 / F ADM Date: 09/26/25 Loc: US Attending Dr: Steph Keane Ordering Physician: Steph Keane Date of Service: 09/26/25 Procedure(s): US OB BPP w non-stress Accession Number(s): [id number] cc: Steph Keane; Yomaira BELTRAN [place] [id number] Patient Name: JUHI GAMA MRN: [id number] date: 1995 Sex: F Assigned Patient Location: Current Patient Location: Accession/Order Number: [id number] Exam Date: 09/26/2025 11:50 Report Date: 09/26/2025 14:50 At the request of: STEPH KEANE Procedure: US OB BPP w non-stress Ultrasound biophysical profile INDICATION: -induced hypertension COMPARISON: 09/19/2025 FINDINGS IMPRESSION: Cephalic position. 8 out of 8 score biophysical profile. LEONEL 11.6 cm. heart 129 bpm Impression dictated by: Chu Amaya M.D. 09/26/2025 2:50 PM Dictation Location: [facility]IO-PC-29 Electronically authenticated by: [id number] Y Date: 09/26/2025 14:50 Dictated By: Chu Amaya M.D. Signed By: 09/26/25 1452 DD/ 49 TD/TT: Leather Etcher:TBHRadiology, Radiologist, - 09/26/2025 [place] [address] Ultrasound Report Signed Patient: JUHI GAMA MR#: [id number] : 1995 Acct:[id number] Age/Sex: 30 / F ADM Date: 09/26/25 Loc: US Attending Dr: Steph Keane Ordering Physician: Steph Keane Date of Service: 09/26/25 Procedure(s): US OB BPP w non-stress Accession Number(s): [id number] cc: Le Keane G ROBERT [place] [address] Patient Name: JUHI GAMA MRN: [facility]:[id number] date: 1995 Sex: F Assigned Patient Location: Current Patient Location: Accession/Order Number: [id number] Exam Date: 09/26/2025 11:50 Report Date: 09/26/2025 14:50 At the request of: STEPH KEANE Procedure: US OB BPP w non-stress Ultrasound biophysical profile INDICATION: -induced hypertension COMPARISON: 09/19/2025 FINDINGS IMPRESSION: Cephalic position. 8 out of 8 score biophysical profile. LEONEL 11.6 cm. heart 129 bpm Impression dictated by: Chu Amaya M.D. 09/26/2025 2:50 PM Dictation Location: RADIO-PC-29 Electronically authenticated by: [id number] Y Date: 09/26/2025 14:50 Dictated By: Chu Amaya M.D. Signed By: 09/26/25 145 DD/ 145 TD/TT: Leather Etcher: LANETTE HealthcareRadiology Study observation (narrative)NOMS HealthcareUS OB BPP W NON-STRESSOrdered By: Radiologist Radiology on 92-49-4871[facility] Work Phone: US OB BPP W NON-STRESSon [phone], [place] [address] Ultrasound Report Signed Patient: JUHI GAMA MR#: [id number] : 1995 Acct:[id number] Age/Sex: 30 / F ADM Date: 09/19/25 Loc: US Attending Dr: Steph Keane Ordering Physician: Steph Keane Date of Service: 09/19/25 Procedure(s): US OB BPP w non-stress Accession Number(s): [id number] cc: Steph Keane; Yomaira BELTRAN [place] [id number] Patient Name: JUHI GAMA MRN: [facility]:[id number] date: 1995 Sex: F Assigned Patient Location: [facility] Current Patient Location: Accession/Order Number: [id number] Exam Date: 09/19/2025 10:06 Report Date: 09/19/2025 [...] Morillo M.D. 09/19/2025 12:17 PM Dictation Location: [employer] Electronically authenticated by: [id number] Y Date: 09/19/2025 12:17 Dictated By: Jp Morillo D.O. Signed By: 09/19/25 1219 DD/ 16 TD/TT: Leather Etcher:SATNAMadiolRandell malagon, - 09/19/2025 [facility] [place] [id number] Ultrasound Report Signed Patient: JUHI GAMA MR#: [id number] : 1995 Acct:[id number] Age/Sex: 30 / F ADM Date: 09/19/25 Loc: US Attending Dr: Steph eKane Ordering Physician: Steph Keane Date of Service: 09/19/25 Procedure(s): US OB BPP w non-stress Accession Number(s): [id number] cc: Steph Keane; Yomaira BELTRAN The [place] [id number] Patient Name: JUHI GAMA MRN: [facility]:[id number] date: 1995 Sex: F Assigned Patient Location: [facility] Current Patient Location: Accession/Order Number: [id number] Exam Date: 09/19/2025 10:06 Report Date: 09/19/2025 [...] Morillo M.D. 09/19/2025 12:17 PM Dictation Location: [employer] Electronically authenticated by: [id number] Y Date: 09/19/2025 12:17 Dictated By: Jp Morillo D.O. Signed By: 09/19/25 1219 DD/ 16 TD/TT: Leather Etcher: LANETTE HealthcareRadiology Study observation (narrative)NOMS HealthcareUS OB BPP W NON-STRESSOrdered By: Radiologist Radiology on 42-03-4295TWWNEllett Memorial Hospital Work Phone: Urinalysis macro (dipstick) panel (U)on 09-16-2025 Bilirubin, UANegativeNegative - 4(70) +++ mg/dLEllett Memorial HospitalBlood, UANegative Negative - 50 Teodoro/mcLEllett Memorial HospitalClarity, UAClearNOAR HealthcareColor, UA YellowNOUniversity of Missouri Children's HospitalGlucose, UANegativeNegative - 2000(110) ++++ mg/dLEllett Memorial HospitalInterpretation and review of laboratory resultsNormalEllett Memorial Hospital Ketones, UANegativeNegative - 160(16) ++++ mg/dLEllett Memorial HospitalLeukocytes, UA NegativeNegative - 500+++ Robinson/Formerly [facility] - LorisNitrite, UANegativeNegative - PositiveCASTLEVIEW HOSPITAL HealthcarepH, UA6.05 - 9NOAR HealthcareProtein, UANegativeNegative - 2000(20) ++++ mg/dLEllett Memorial HospitalSpec Grav, UA1.0101 - 1.03[facility] Urobilinogen, UA1.00.2 - 12 mg/dLSaint John's Regional Health Center HealthcareALL BUNon 34-44-4124Znlq nitrogen [Mass/Vol]8 mg/dL7.0 - 18.0 mg/dLPerry County Memorial Hospital URIC ACIDon 31-20-2276Rbpnf [Mass/Vol]3.5 mg/dL2.6 - 6.0 mg/dLEllett Memorial HospitalCC ALT on 60-22-7836QDH [Catalytic activity/Vol]40 U/L14 - 59 U/[facility] SystemCCF AST on 79-69-0756MYB [Catalytic activity/Vol]24 U/L15 - 37 U/[facility] Health SystemNo Panel Informationon 83-47-6862Evdwbeslcssjma and review of laboratory results AbnormalNOUniversity of Missouri Children's HospitalCLINISYNCNBarton County Memorial HospitalTB CREATININEon 09-03-2025 Creatinine [Mass/Vol]0.42 mg/dLLow0.55 - 1.02 mg/dLEllett Memorial HospitalGFR/1.73 sq M.predicted CKD-EPI (S/P/Bld) [Vol rate/Area]>60>=60 mL/min/1.73m 2NBarton County Memorial HospitalTB EGFR-NON AF MOZAMBICAN>60>=60 mL/min/1.73m 2NOMS HealthcareTB URINE T PROTEIN CREAT RATIOon 80-12-9696ULIESQDMIQ URINE RANDOM<13.94Hbe64.00 - 300.00 mg/dLNOAR HealthcareTOTAL PROTEIN URINE RANDOM<6.0NINF - 11.9 mg/dLCASTLEVIEW HOSPITAL HealthcareUrinalysis macro (dipstick) panel (U)on 39-30-8549Azsgsejos, UA NegativeNegative - 4(70) +++ mg/dLCASTLEVIEW HOSPITAL HealthcareBlood, UANegativeNegative - 50 Teodoro/mcLCASTLEVIEW HOSPITAL HealthcareClarity, UAClearNOAR HealthcareColor, UAYellowNOAR HealthcareGlucose, UANegativeNegative - 2000(110) ++++ mg/dLCASTLEVIEW HOSPITAL Healthcare Interpretation and review of laboratory resultsNormalCASTLEVIEW HOSPITAL HealthcareKetones, UA NegativeNegative - 160(16) ++++ mg/dLCASTLEVIEW HOSPITAL HealthcareLeukocytes, UANegative Negative - 500+++ Robinson/Formerly [facility] - LorisNitrite, UANegativeNegative - Positive NOM HealthcarepH, UA6.55 - 9NOAR HealthcareProtein, UANegativeNegative - 2000(20) ++++ mg/dLCASTLEVIEW HOSPITAL HealthcareSpec Grav, UA1.0051 - 1.03NOAR Healthcare Urobilinogen, UA2.00.2 - 12 mg/dLAffinity Health PartnersTB TOTAL PROTEIN 24 HOUR URINEon 45-58-8905Bpsxxrkapfoxrt and review of laboratory results AbnormalNOAR HealthcareProtein (U) [Mass/Vol]22.6 mg/dLHighNINF - 11.9 mg/dLEllett Memorial HospitalTB TOTAL PROTEIN 24 HOUR UZSDU351.6NINFNOUniversity of Missouri Children's HospitalTOTAL VOLUME 24 HOUR WHFAV460rT/24hrNOAR HealthcareCLINISYNCNHILLCREST HOSPITAL PRYOR – PRYOR HealthcareALL CBC WITH AUTO DIFFon 05-30-3215ITDOWFJUW ABSOLUTE AUTO0.1NOMS HealthcareBasophils/100 WBC (Bld)0.5 %0.2 - 2.0 %NOMS HealthcareEosinophils/100 WBC (Bld)1.4 %0.9 - 7.0 % [facility] HealthcareErythrocyte distribution width (RBC) [Ratio]13 %11.0 - 15.0 %[facility] HealthcareHematocrit (Bld) [Volume fraction]34.4 %Low36.0 - 48.0 %Ellett Memorial HospitalHemoglobin (Bld) [Mass/Vol]11.3 g/dLLow12.0 - 16.0 g/dLEllett Memorial Hospital IMMATURE GRANULOCYTES ABS AUTO0.59HighNOAR HealthcareImmature granulocytes/100 WBC (Bld)4.4 %High0.0 - 0.5 %[facility] HospitalInterpretation and review of laboratory resultsAbnormalNOAR HealthcareLYMPHOCYTES ABSOLUTE AUTO2.4NOAR HealthcareLymphocytes/100 WBC (Bld)17.8 %Low20.5 - 60.0 %[facility] & Sports MedicineH (RBC) [Entitic mass]29.4 pg26.7 - 34.0 pgNOSt. Louis Behavioral Medicine InstituteHC (RBC) [Mass/Vol] 32.8 g/dL29.9 - 35.2 g/dLEllett Memorial HospitalMCV (RBC) [Entitic vol]89.4 fL81.0 - 99.0 fLEllett Memorial HospitalMONOCYTES ABSOLUTE AUTO1.1HighNOAR HealthcareMonocytes/100 WBC (Bld)8.1 %1.7 - 12.0 %[facility] HospitalNEUTROPHILS ABSOLUTE GHUD2RpnzMJZI HealthcareNeutrophils/100 WBC (Bld)67.8 %43.0 - 75.0 %[facility] Memorial HospitalPlatelet mean volume (Bld) [Entitic vol]9.6 fL9.5 - 13.5 fLEllett Memorial HospitalTBH EO #0.2NOMS [facility] CenterTB OAM240SJUZ [facility] RBC3.85LowNOMS [facility] WBC13.3High [facility] HospitalCLINISYNFormerly KershawHealth Medical CenterTB URINE T PROTEIN CREAT RATIOon 75-85-8097MEZOQSLZIP URINE RANDOM<13.57Dvz08.00 - 300.00 mg/dLEllett Memorial Hospital Interpretation and review of laboratory resultsAbnormalEllett Memorial HospitalTOTAL PROTEIN URINE RANDOM<6.0NINF - 11.9 mg/dLEllett Memorial HospitalCLINISYNFormerly [facility] US OB BPP W NON-STRESSon 70-69-2750R[address] [address] Ultrasound Report Signed Patient: JUHI GAMA MR#: [id number] : 1995 Acct:[id number] Age/Sex: 30 / F ADM Date: Loc: [facility] 250-[address]: KUNAL HYATT M.D. Ordering Physician: Steph Keane Date of Service: 08/27/25 Procedure(s): US OB BPP w non-stress Accession Number(s): [id number] cc: Steph Keane; Yomaira BELTRAN [place] [address] Patient Name: JUHI GAMA MRN: [facility]:[id number] date: 1995 Sex: F Assigned Patient Location: LAB Current Patient Location: LAB Accession/Order Number: [id number] Exam Date: 08/27/2025 17:37 Report Date: 08/27/2025 [...] Morillo M.D. 08/27/2025 6:02 PM Dictation Location: [place] [address] Electronically authenticated by: [id number] Y Date: 08/27/2025 18:02 Dictated By: Jp Morillo D.O. Signed By: 08/27/251804 DD/ 01 TD/TT: Leather Etcher:SATNAMadiology, Radiologist, MD - 08/27/2025 [place] [address] Ultrasound Report Signed Patient: JUHI GAMA MR#: [id number] : 1995 Acct:[id number] Age/Sex: 30 / F ADM Date: Loc: [facility] 250-[address]: KUNAL HYATT M.D. Ordering Physician: Steph Keane Date of Service: 08/27/25 Procedure(s): US OB BPP w non-stress Accession Number(s): [id number] cc: Steph Keane; Yomaira BELTRAN [place] [id number] Patient Name: JUHI GAMA MRN: [facility]:[id number] date: 1995 Sex: F Assigned Patient Location: LAB Current Patient Location: LAB Accession/Order Number: [id number] Exam Date: 08/27/2025 17:37 Report Date: 08/27/2025 [...] Morillo M.D. 08/27/2025 6:02 PM Dictation Location: [place] [address] Electronically authenticated by: [id number] Y Date: 08/27/2025 18:02 Dictated By: Jp Morillo D.O. Signed By: 08/27/251804 DD/ 01 TD/TT: Leather Etcher: LANETTE HealthcareRadiology Study observation (narrative)NOMShalonda SmallUS OB BPP W NON-STRESSOrdered By: Radiologist Radiology on 66-00-0361NS[facility] Work Phone: Urinalysis macro (dipstick) panel (U)on 08-27-2025 Bilirubin, UANegativeNegative - 4(70) +++ mg/dLNOMS HealthcareBlood, UANegative Negative - 50 Teodoro/mcLNOMS HealthcareClarity, UAClearNOMS HealthcareColor, UA YellowNOMS HealthcareGlucose, UANegativeNegative - 2000(110) ++++ mg/dLNOMS HealthcareInterpretation and review of laboratory resultsNormalEllett Memorial Hospital Ketones, UANegativeNegative - 160(16) ++++ mg/dLCASTLEVIEW HOSPITAL HealthcareLeukocytes, UA NegativeNegative - 500+++ Robinson/mcLNOAR HealthcareNitrite, UANegativeNegative - PositiveNOAR HealthcarepH, UA65 - 9NOAR HealthcareProtein, UANegativeNegative - 2000(20) ++++ mg/dLCASTLEVIEW HOSPITAL HealthcareSpec Grav, UA1.0151 - 1.03NOAR Healthcare Urobilinogen, UA2.00.2 - 12 mg/dLNOAR HealthcareNOAR HealthcareURINE CULTURE, ROUTINEon 13-62-0900Ovfvyrgn identified Cx Nom (U) Urine Culture, Routine NOMS HealthcareBacteria identified Cx Nom (U)Mixed urogenital floraNOAR HealthcareBacteria identified Cx Nom (U)25,000-50,000 colony forming units per mLNOMS HealthcareBacteria identified Cx Nom (U)Performed at: - [facility] NOMS HealthcareBacteria identified Cx Nom (U)[address] [place] [address] [id number] HealthcareBacteria identified Cx Nom (U)Scaffold Erector: Cm Sandoval PhD, Phone: [phone] HealthcareCLINISYNFRAMINGHAM UNION [facility]ITAL Ujdaxvgfvj7oj hr Glucose Tolerance 100 gm loadon 30-97-0232Lmsavyh Tolerance Test 2 Vgur467 [facility] HospitalCapillary Glucose POCon 88-25-9625Ffeeyhq [Mass/Vol]88 mg/eIGzglwf57-94UmkqohSt. Rita'S HospitalComment on above:Performed By: #### [id number] #### [facility] [address], [place] [address]Nbj 1 Hron 81-65-7970Pcyofah [Mass/Vol]152 mg/uPBijitg73-067 [facility]'S HospitalComment on above:Performed By: #### [id number] #### [facility] [address], [place] [address]Aqu 2 Hron 64-74-3455Czakvdn [Mass/Vol]169 mg/tZSleb93-893 [facility]S HospitalComment on above:Performed By: #### [id number] #### Rivera [facility] [address], [place] [address]Hgi 3 Hron 73-62-9253Npwkvaf [Mass/Vol]141 mg/oAMsrb06-125 [facility]'S HospitalComment on above:Performed By: #### [id number] #### [facility] [address], [place] [address]Cpv Fastingon 25-42-5725Bexttga [Mass/Vol]82 mg/wALhrdeb03-15 [facility]'S HospitalComment on above:Performed By: #### [id number] #### [facility] [address], [place] [address]Pegvlsv tolerance, 1 houron 66-93-4450Dgquweh Tolerance Test 1 Wxtc535FovRhelui Health SystemGlucose tolerance, 3 hourson 30-30-6852Eoxjbfj Tolerance Test 3 Uido615TkrVjdxqw Health SystemGlucose, tolerance fastingon 64-85-5912Tswbwnx Tolerance Test Olpudqw95ApgBgvfwf Health SystemNo Panel Informationon 18-30-2158ZirQbyffgOhioHealth Marion General HospitalCBC w/ Auto Diffon 08-12-2025 Basophil Absolute0.1 E9/LNormal0.0-0.2[facility] CenterComment on above:Performed By: #### [id number] #### [facility] [address] [place] [address]Qcnurqmac/100 WBC (Bld)0.6 %Normal0.0-2.0St. Rita'S HospitalComment on above:Performed By: #### [id number] #### [facility] [address], [place] [address]Amq Absolute0.1 E9/LNormal0.0-0.5Fisher [facility] Comment on above:Performed By: #### [id number] #### [facility] [address] [place] [address]Jzlixiwgkzg/100 WBC (Bld)1.0 %Normal0.0-8.0St. [facility]'S HospitalComment on above:Performed By: #### [id number] #### [facility] [address], [place] [address]Uoepmbocfwq distribution width (RBC) [Ratio]12.9 %Normal 10.9-14.2FSt. Charles HospitalComment on above:Performed By: #### [id number] #### [facility] [address], [place] [address]Uezdyssqya (Bld) [Volume fraction]33.1 %Low34.0-46.0St. Rita'S HospitalComment on above:Performed By: #### [id number] #### [facility] [address], [place] [address]Guvagcznnk (Bld) [Mass/Vol]11.4 g/dLLow12.0-16.0St. Rita'S HospitalComment on above:Performed By: #### [id number] #### [facility] [address] [place] [address]Qkfei Absolute2.0 E9/LNormal1.0-4.0[facility] Comment on above:Performed By: #### [id number] #### [facility] [address], [place] [address]Zomrjrkptdn/100 WBC (Bld)19.6 %Omlmue83.0-50.0St. [facility]'S HospitalComment on above:Performed By: #### [id number] #### [facility] [address], [place] [address]HWQ (RBC) [Entitic mass]29.9 haKetmyk05.0-34.0St[facility]'S HospitalComment on above:Performed By: #### [id number] #### [facility] [address], [place] [address]HOGF (RBC) [Mass/Vol]34.4 g/tZXsetvr05.4-36.0St. [facility]'S HospitalComment on above:Performed By: #### [id number] #### [facility] [address], [place] [address]QRN (RBC) [Entitic vol]86.7 cBTavuwr52.0-100.0St[address] [facility]'S HospitalComment on above:Performed By: #### [id number] #### [facility] [address], [place] [address]Vibc Absolute0.5 E9/LNormal0.2-1.0[facility] Comment on above:Performed By: #### [id number] #### [facility] [address], [place] [address]Paklsekun/100 WBC (Bld)4.6 %Normal4.0-14.0St. Rita'S HospitalComment on above:Performed By: #### [id number] #### [facility] [address], [place] [address]Xdklfx Absolute7.5 E9/LNormal2.0-7.5FSt. Charles Hospital Comment on above:Performed By: #### [id number] #### [facility] [address] [place] [address]Jpuhdm Auto74.2 %Rbnnzl97.0-75.0[facility] Comment on above:Performed By: #### [id number] #### [facility] [address] [place] [address]Qsdtyypz556.0 E9/SQadwdt951.0-500.0[facility] Comment on above:Performed By: #### [id number] #### [facility] [address] [place] [address]Arzxktxo mean volume (Bld) [Entitic vol]8.1 fLNormal6.4-10.8 [facility]'S HospitalComment on above:Performed By: #### [id number] #### [facility] [address], [place] [address]MVB1.8 E12/LLow4.3-5.9St. [facility]'S HospitalComment on above:Performed By: #### [id number] #### [facility] [address] [place] [address]ESQ72.1 E9/LNormal4.0-11.0St. [facility]'S HospitalComment on above:Performed By: #### [id number] #### Miguel [facility] [address], [place] [address]Kbbzbpvkwh 92-57-0343Pxywubng Lvl7 ng/pGRmr62-409AiuaiwSt. Rita'S HospitalComment on above:Performed By: #### [id number] #### Miguel [facility] [address], [place] [address]Gkxmypmn 01-29-8406Inrzun Lvl>22.3Normal>=6.7FSt. Charles HospitalComment on above:Performed By: #### [id number] #### [facility] [address], [place] [address]Dmgb Scr Glu 1 Hron 73-28-0943Ulfuggo [Mass/Vol]155 mg/dLHigh 55-140St. Rita'S HospitalComment on above:Performed By: #### [id number] #### Miguel [facility] [address] [place] [address]Jcdycgr 1h post 50g loadon 18-04-6602Gbszmas, 1 hr PP 50GM dose 155ProMedica Health SystemIronon 87-40-0508Uwef10 microgram/kLZbrodt39-073SypcekSt. Rita'S HospitalComment on above:Performed By: #### [id number] #### Miguel [facility] [address], [place] [address]Yq Panel Informationon 99-50-1818BAPT HealthcareTIBC Calculated on 52-46-8109HVUE791 microgram/vUChmy321-565GjlvzoSt. Rita'S HospitalComment on above:Performed By: #### [id number] #### [facility] [address], [place] [address]Ynlvgfcafva [Mass/Vol]455 mg/uHDbcl037-531LggcegSt. Rita'S HospitalComment on above:Performed By: #### [id number] #### Miguel [facility] [address], [place] [address]WZ OB LIMITED 1+ FETUSESon 22-23-7833OW OB LIMITED 1+ FETUSES FINDINGS: Single viable [...] Delivery: 11/28/25 Gestational Age as of 07/21/2025: 85d3zLuyxbslmck macro (dipstick) panel (U)on 12-85-3948Perkwqeyj, UANegativeNegative - 4(70) +++ mg/dLNOMS HealthcareBlood, UANegativeNegative [...] HealthcareUrobilinogen, UA1.00.2 - 12 mg/dLNOMS HealthcareVit B12on 11-27-3770Vnmfhzkjg (Vitamin B12) [Mass/Vol]205 pg/wMBuiyhp65-0161Zwiewp [facility] CenterComment on above:Performed By: #### [id number] #### Miguel [facility] [address], [place] [address]FUE w/ Auto Diffon 74-52-7441Dryfetad Absolute0.0 E9/LNormal 0.0-0.2[facility] CenterComment on above:Performed By: #### [id number] #### Miguel [facility] [address], [place] [address]Tbyanqzwo/100 WBC (Bld)0.2 %Normal0.0-2.0St. Rita'S HospitalComment on above:Performed By: #### [id number] #### [facility] [address] [place] [address]Krd Absolute0.1 E9/LNormal0.0-0.5FSt. Charles Hospital Comment on above:Performed By: #### [id number] #### [facility] [address], [place] [address]Ugrcuwqudsi/100 WBC (Bld)0.5 %Normal0.0-8.0St. [facility]'S HospitalComment on above:Performed By: #### [id number] #### [facility] [address] [place] [address]Nhpaopvanka distribution width (RBC) [Ratio]13.0 %Normal 10.9-14.2FSt. Charles HospitalComment on above:Performed By: #### [id number] #### [facility] [address] [place] [address]Iwnpfyrtla (Bld) [Volume fraction]31.9 %Low34.0-46.0St. [facility]'S HospitalComment on above:Performed By: #### [id number] #### [facility] [address] [place] [address]Gcxdqshemc (Bld) [Mass/Vol]11.1 g/dLLow12.0-16.0St. [facility]'S HospitalComment on above:Performed By: #### [id number] #### [facility] [address] [place] [address]Llfqo Absolute2.1 E9/LNormal1.0-4.0[facility] Comment on above:Performed By: #### [id number] #### [facility] [address], [place] [address]Azdrmxefyaj/100 WBC (Bld)16.2 %Ftosra80.0-50.0St. [facility]'S HospitalComment on above:Performed By: #### [id number] #### [facility] [address], [place] [address]LDC (RBC) [Entitic mass]29.9 ljHgntts76.0-34.0St[facility]'S HospitalComment on above:Performed By: #### [id number] #### [facility] [address] [place] [address]PZUC (RBC) [Mass/Vol]34.8 g/zRFilrmw36.4-36.0St. [facility]'S HospitalComment on above:Performed By: #### [id number] #### [facility] [address] [place] [address]UCQ (RBC) [Entitic vol]85.7 dPTefnat46.0-100.0St. [facility]'S HospitalComment on above:Performed By: #### [id number] #### [facility] [address] [place] [address]Apzj Absolute0.9 E9/LNormal0.2-1.0[facility] Comment on above:Performed By: #### [id number] #### [facility] [address] [place] [address]Gslzuiygm/100 WBC (Bld)7.0 %Normal4.0-14.0St. [facility]'S HospitalComment on above:Performed By: #### [id number] #### [facility] [address] [place] [address]Rcfklv Absolute9.7 E9/LHigh2.0-7.5Fisher [facility] Comment on above:Performed By: #### [id number] #### [facility] [address] [place] [address]Mdujct Auto76.1 %High36.0-75.0[facility] Comment on above:Performed By: #### [id number] #### [facility] [address] [place] [address]Iceaiuvx515.0 E9/SWafuyq069.0-500.0[facility] Comment on above:Performed By: #### [id number] #### [facility] [address], [place] [address]Etpxpyff mean volume (Bld) [Entitic vol]8.[address] fLNormal6.4-10.8 [address]S HospitalComment on above:Performed By: #### 8710169 #### [facility] [address], [place] [address]NMR9.7 E12/LLow4.3-5.9St. [facility]'S HospitalComment on above:Performed By: #### [id number] #### [facility] [address], [place] [address]OJW59.8 E9/LHigh4.0-11.0St. [facility]'S HospitalComment on above:Performed By: #### [id number] #### [facility] [address], [place] [address]VUSam 49-81-9142ZY0 [Moles/Vol]20 mmol/JYvr06-62OumlhrSt. Rita'S HospitalComment on above:Performed By: #### [id number] #### [facility] [address], [place] [address]Uzndd gap [Moles/Vol]16 mmol/LNormal6-16St. [facility]'S HospitalComment on above:Performed By: #### [id number] #### [facility] [address], [place] [address]Sbzpnzv [Mass/Vol]3.8 g/dLNormal3.3-5.0St. [facility]'S HospitalComment on above:Performed By: #### [id number] #### [facility] [address], [place] [address]Syamtyl/Globulin [Mass ratio]1.3 {ratio}Normal1.1-2.2FSt. Charles HospitalComment on above:Performed By: #### 8092308 #### [facility] [address], [place] [address]Mpo Phos78 Int._Unit/HKrplgu10-74SvhbiqSt. Rita'S Hospital Comment on above:Performed By: #### [id number] #### [facility] [address], [place] [address]YZC12 Int._Unit/LNormal6-46St. [facility]'S HospitalComment on above:Performed By: #### [id number] #### [facility] [address], [place] [address]CTY42 Int._Unit/LNormal5-43St. [facility]'S HospitalComment on above:Performed By: #### [id number] #### [facility] [address], [place] [address]Ezip Total0.8 mg/dLNormal0.0-1.1FSt. Charles Hospital Comment on above:Performed By: #### [id number] #### [facility] [address], [place] [address]LVA/Creat Ratio18 No XlltgHzklaq05-57IghwceSt. Rita'S HospitalComment on above:Performed By: #### [id number] #### [facility] [address], [place] [address]Autqnlf [Mass/Vol]8.9 mg/dLNormal8.9-11.1FSt. Charles HospitalComment on above:Performed By: #### [id number] #### [facility] [address], [place] [address]Djdhpwfp [Moles/Vol]104 mmol/PNevswv685-251DjdkkfSt. Rita'S HospitalComment on above:Performed By: #### [id number] #### [facility] [address], [place] [address]Lnrwwjlirt [Mass/Vol]0.6 mg/dLNormal0.5-1.3FSt. Charles HospitalComment on above:Performed By: #### [id number] #### [facility] [address] [place], [place] [address]Cnfcffun (S) [Mass/Vol]3.0 g/dLNormal1.4-4.0St. Rita'S HospitalComment on above:Performed By: #### [id number] #### [facility] [address] [place], [place] [address]Ywccjww [Mass/Vol]92 mg/mJZulxex69-863BewkqoSt. Rita'S HospitalComment on above:Performed By: #### [id number] #### [facility] [facility] [address], [place] [address]Bknzvxlse [Moles/Vol]3.7 mmol/LNormal3.5-5.3FSt. Charles HospitalComment on above:Performed By: #### [id number] #### Rivera [facility] [address], [place] [address]Zlcatuf [Mass/Vol]6.8 g/dLNormal6.0-7.8St. Rita'S HospitalComment on above:Performed By: #### [id number] #### Rivera [facility] [address], [place] [address]Xbrewr [Moles/Vol]136 mmol/SGclnya043-839LkwqjbSt. Rita'S HospitalComment on above:Performed By: #### [id number] #### Rivera [facility] [address], [place] [address]Aopi nitrogen [Mass/Vol]11 mg/dLNormal5-21St. Rita'S HospitalComment on above:Performed By: #### [id number] #### Rivera [facility] [address], [place] [address]Asmhk Panelon 38-78-0790Jjwfizxitfq [Mass/Vol]239 mg/dLHigh 120-200St. Rita'S HospitalComment on above:Performed By: #### [id number] #### Rivera [facility] [address], [place] [address]Agliclzlsrp in HDL [Mass/Vol]88 mg/dLInvalid Interpretation CodeSt. Rita'S HospitalComment on above:Result Comment: '>= 60 LOW RISK' '<= 40 HIGH RISK'Performed By: #### [id number] #### Rivera [facility] [address], [place] [address]Vdbxjpjrasf in LDL [Mass/Vol]144 mg/dLHigh<=129St. Rita'S HospitalComment on above:Performed By: #### [id number] #### [facility] [address] [place], [place] [address]Dzyvtlejsvk in VLDL [Mass/Vol]40 mg/dLNormal7-40St. Rita'S HospitalComment on above:Performed By: #### [id number] #### [facility] [address], [place] [address]Bakbnhldmunb [Mass/Vol]202 mg/dLHigh<=149St. Rita'S HospitalComment on above:Performed By: #### [id number] #### [facility] [address] [facility] [address] [place], [place] [address]oXARkf 55-06-3232pKJS756 mL/min/1.73 t9Vkcvxv>=59St. Rita'S HospitalComment on above:Performed By: #### [id number] #### [facility] [address], [place] [address]HPJ, SERUM, OPEN SPINA BIFIDAon 09-90-2575BUV MOM0.95.[facility] HealthcareAFP VALUE59.2 ng/mL.[facility] HealthcareCOMMENT:Comment.[facility] Healthcare Comment on above:Amy Ramos, Ph.D., [facility] Director References: Available Upon Request. Multiples Of Median Cutoffs For AFP Elevations Hsieh 2.5 Black 2.8 IDD 2.0 Twins 4.5 Abbreviation Definitions IDD - Insulin Dep Diabetes OSBR - Open Spina Bifida Risk For further inquiries contact [employer] [facility] at [phone]. This test was developed and its performance characteristics determined by Alma Johns. It has not been cleared or approved by the Food and Drug Administration. Performed at: [facility] [address] [place], [place] [id number] Scaffold Erector: Dona [facility], Phone: [phone] GEST. AGE ON COLLECTION DATE20.6. weeksNOMS HealthcareGESTAT. AGE BASED ONLMP. NOMS HealthcareComment on above:Recalculations are not recommended when gestational dating by LMP and ultrasound are within 10 days. INSULIN DEP DIABETESNo.[facility] HospitalINTERPRETATIONComment.[facility] Comment on above:Interpretation: Screen Negative [...] 35 and older. MATERNAL AGE AT EDD30.7. yrNOAR HealthcareMULTIPLE GESTATIONNo.[facility] OSBR RISK 1 [id number].[facility] HospitalRACECaucasian.[facility] HospitalRESULTSReport. [facility] HospitalTEST RESULTS:Negative.[facility] HospitalTjnlojyzjjSEYCYY965. lbMary Bridge Children's Hospital HealthcarePREGNANCY N N LMP [id number] 2 17 N 1 Y 146 N N N N N White/ CLINISYNCNOAR HealthcareUS OB 14+ WEEKS ANATOMY SCANon 90-41-4490TL OB 14+ WEEKS ANATOMY SCANEXAM: US OB [...] II, MD, PHD at 16-Jul-2025 08:07:07 AM [facility] TeleradiologyNormalNot AvailableComment on above:Order Comment: US OB ANATOMY SINGLE W US OB CERVICAL LENGTH Estimated Date of Delivery: 11/28/25 Gestational Age as of 06/22/2025: 06z7dWvnlgqyeyz macro (dipstick) panel (U)on 39-66-6876Tcwqjmdwq, UANegativeNegative - 4(70) +++ mg/dLNOMS HealthcareBlood, UANegativeNegative [...] 12 mg/dLNOMS HealthcareNOMS Healthcare RECURRENT VAGINITIS (HTRX)on 02-06-9522XGXHKLJBB LPFQKSD3HHPZ Healthcare ATOPOBIUM VAGINAENot detectedNOMS HealthcareBVAB 2,3 (BACTERIAL VAGINOSIS ASSOCIATED BACTERIA 2, 3); MOBILUNCUS KFM1HOCL HealthcareBVAB 2,3 (BACTERIAL VAGINOSIS ASSOCIATED BACTERIA 2, 3); MOBILUNCUS SPPNot detectedNOMS Healthcare RADHA ALBICANS, PARAPSILOSIS, VVTKQXEFBS9YHJM HealthcareCANDIDA ALBICANS, PARAPSILOSIS, TROPICALISNot detectedNOMS HealthcareCANDIDA QBUTJSLY2TXGN HealthcareCANDIDA GLABRATANot detectedNOMS HealthcareCANDIDA BGHSQO7ZOQZ HealthcareCANDIDA KRUSEINot detectedNOMS HealthcareCHLAMYDIA UENOOXGWLYI6ZSPC HealthcareCHLAMYDIA TRACHOMATISNot detectedNOMS HealthcareGARDNERELLA VAGINALIS 17.967AbnormalNOMS HealthcareGARDNERELLA VAGINALISDetectedAbnormalNOAR HealthcareInterpretation and review of laboratory resultsAbnormalNOAR Healthcare MEGASPHAERA (TYPES 1, 2)0NOMS HealthcareMEGASPHAERA (TYPES 1, 2)Not detectedNOMS HealthcareMYCOPLASMA MJSNWXIXKE3JIIO HealthcareMYCOPLASMA GENITALIUMNot detectedNOMS HealthcareNEISSERIA WIQRBJAJZTO6ZOJK HealthcareNEISSERIA GONORRHOEAENot detectedNOMS HealthcareTRICHOMONAS JJMCMACBT4XYVR Healthcare TRICHOMONAS VAGINALISNot detectedNOMS HealthcareNOMS HealthcareUrinalysis macro (dipstick) panel (U)on 04-79-6575Gdzblacrm, UANegativeNegative - 4(70) +++ mg/dL NOMS HealthcareBlood, UANegativeNegative - 50 Teodoro/mcLNOMS HealthcareClarity, UA ClearNOMS HealthcareColor, UAYellowNOMS HealthcareGlucose, UANegativeNegative - 2000(110) ++++ mg/dLNOMS HealthcareInterpretation and review of laboratory resultsNormalNOAR HealthcareKetones, UANegativeNegative - 160(16) ++++ mg/dLNOMS HealthcareLeukocytes, UANegativeNegative - 500+++ Robinson/mcLNOMS Healthcare Nitrite, UANegativeNegative - PositiveNOMS HealthcarepH, UA65 - 9[facility] Protein, UANegativeNegative - 1999(20) ++++ mg/dLNOMS HealthcareSpec Grav, UA 1.0051 - 1.03NOMS HealthcareUrobilinogen, UA1.00.2 - 12 mg/dLNOAR HealthcareNOAR HealthcareUrinalysis macro (dipstick) panel (U)on 01-08-3088Ulaqsegam, UA NegativeNegative - 4(70) +++ mg/dLNOAR HealthcareBlood, UANegativeNegative - 50 Teodoro/mcLNOAR HealthcareClarity, UAClearNOMS HealthcareColor, UAYellowNOAR HealthcareGlucose, UANegativeNegative - 2000(110) ++++ mg/dLCASTLEVIEW HOSPITAL Healthcare Interpretation and review of laboratory resultsNormalCASTLEVIEW HOSPITAL HealthcareKetones, UA NegativeNegative - 160(16) ++++ mg/dLCASTLEVIEW HOSPITAL HealthcareLeukocytes, UAPositive Negative - 500+++ Robinson/mcLCASTLEVIEW HOSPITAL HealthcareComment on above:smallNitrite, UA NegativeNegative - PositiveNOAR HealthcarepH, UA6.55 - 9NOMS HealthcareProtein, UANegativeNegative - 1999(20) ++++ mg/dLNOAR HealthcareSpec Grav, UA1.011 - 1.03 NOMS HealthcareUrobilinogen, UA0.20.2 - 12 mg/dLSaint John's Regional Health Center Healthcare BOX TESTon 05-21-7990SXY TEST SENT OUTunVanderbilt Transplant CenterEevuxjioirVJU2fqfjvIRBN DjnkogrzzoQHG68/08/20NOUniversity of Missouri Children's HospitalUNITY BOX CLINISYNCCBC without diffon 17-41-7979Dydetepcbm (Bld) [Volume fraction]39.8 % [facility] SystemHemoglobin (Bld) [Mass/Vol]13.2 g/dLOhioHealth Marion General HospitalPlatelets (Bld) [#/Vol]390 10*3/uLOhioHealth Marion General HospitalRbc Mcv (Fl) By Automated Count84.7[facility] HospitalDrug Screen, Urineon 05-04-2025 Amphetamine/MethamphetamineNegativeOhioHealth Grove [facility] Hospital SystemBarbituratesNegative [facility] SystemBenzodiazepinesNegativeOhioHealth [facility] Hospital SystemCocaine MetaboliteNegativeOhioHealth [facility] Hospital SystemMethadoneNegativeOhioHealth Grove [facility] Methodist Hospital SystemOpiatesNegativeProMedica Health SystemOxycodoneNegativeProMedica Health SystemPhencyclidineNegativeProMedica Health SystemThc Marijuana, UrineNegative [facility] SystemHBV surface Ag IA Qlon 10-06-7024Aygafidvv B Surface AntigenNegativeProMedica Health SystemHCV Ab IA Qlon 06-02-1824HDE Ab Ql (S) Non-ReactiveProMedisd Health SystemHIV 1+2 Ab+HIV1 p24 Ag IA Qlon 60-48-0170QIJ 1&2 AB/AGNon-ReactiveOhioHealth Grove City Methodist Hospital SystemHemoglobin A1con 64-83-9124IaG2m (Bld) [Mass fraction]5.3 %4.0 - 6.0 %[facility] SystemNo Panel Information on 19-27-5619AHFE HealthcareRubella IGG immune statusOrdered By: Angeline Velasquez on 00-80-2311Vqkcsqj immune IgGProUnity Psychiatric Care Huntsville Health SystemType and screenon 87-26-9031Ypy/Rh(D)PositiveProUniversity Hospitals Samaritan Medical CenterHCG ( test) Ql (U)on 28-66-2109Kdyvihuahhvpdp and review of laboratory resultsAbnormalNOAR Healthcare Preg Test, UrPositiveNegativeNOUniversity of Missouri Children's HospitalNOAR HealthcareUS OB TRANSVAGINALon 59-26-4000[place]zy[place], [place] [address] Ultrasound Report Signed Patient: JUHI COPE MR#: [id number] : 1995 Acct:[id number] Age/Sex: 30 / F ADM Date: 05/01/25 Loc: US Attending Dr: Nathan Pop D.O. Ordering Physician: Nathan Pop D.O. Date of Service: 05/01/25 Procedure(s): US OB transvaginal Accession Number(s): [id number] cc: Nathan Pop D.O.; Physician,Non-Staff Katherine The [address] [address] Patient Name: JUHI COPE MRN: [id number] date: 1995 Sex: F Assigned Patient Location: US Current Patient Location: US Accession/Order Number: [id number] Exam Date: 05/01/2025 08:57 Report Date: 05/01/2025 [...] 05/01/2025 9:01 AM Dictation Location: [place] [address] Electronically authenticated by: [id number] Y Date: 05/01/2025 09:01 Dictated By: Will Faria M.D. Signed By: 05/01/2504 DD/ 0 TD/TT: Leather Etcher:TBHRadiology, Radiologist, MD - 05/01/2025 [place] [address] Ultrasound Report Signed Patient: JUHI COPE MR#: [id number] : 1995 Acct:[id number] Age/Sex: 30 / F ADM Date: 05/01/25 Loc: US Attending Dr: Nathan Pop D.O. Ordering Physician: Nathan Pop D.O. Date of Service: 05/01/25 Procedure(s): US OB transvaginal Accession Number(s): [id number] cc: Nathan Pop D.O.; Physician,Non-Staff Katherine [address] [address] Patient Name: JUHI COPE MRN: [id number] date: 1995 Sex: F Assigned Patient Location: US Current Patient Location: US Accession/Order Number: [id number] Exam Date: 05/01/2025 08:57 Report Date: 05/01/2025 [...] 05/01/2025 9:01 AM Dictation Location: [place] [address] Electronically authenticated by: [id number] Y Date: 05/01/2025 09:01 Dictated By: Will Faria M.D. Signed By: 05/01/25903 DD/ 0 TD/TT: Leather Etcher: LANETTE HealthcareRadiology Study observation (narrative)LANETTE SmallUS OB TRANSVAGINALOrdered By: Radiologist Radiology on 29-17-6180LVHQ Healthcare Work Phone: Urinalysis macro (dipstick) panel (U)on 05-01-2025 Bilirubin, UANegativeNegative - 4(70) +++ mg/dLNOMS HealthcareBlood, UANegative Negative - 50 Teodoro/mcLNOMS HealthcareClarity, UAClearNOMS HealthcareColor, UA YellowNOMS HealthcareGlucose, UANegativeNegative - 2000(110) ++++ mg/dLNOMS HealthcareInterpretation and review of laboratory resultsNormalNOAR Healthcare Ketones, UANegativeNegative - 160(16) ++++ mg/dLNOMS HealthcareLeukocytes, UA NegativeNegative - 500+++ Robinson/mcLNOMS HealthcareNitrite, UANegativeNegative - PositiveNOMS HealthcarepH, UA5.55 - 9NOMS HealthcareProtein, UANegativeNegative - 2000(20) ++++ mg/dLNOMS HealthcareSpec Grav, UA1.021 - 1.03N[facility]S Healthcare Urobilinogen, UA1.00.2 - 12 mg/dLNOMS HealthcareNOMS HealthcareCHEMISTRYOrdered By: SYSTEM SYSTEM on 76-57-5724Ctuyldocyuiq Lvl31.35 ng/mLInvalid Interpretation CodeRemisol ChemComment on above:Result Comment: 'F NON FOLLICULAR = 0.10 - 0.60' 'LUTEAL = 3.00 - 17.5' 'MIDLUTEAL = 3.30 - 18.6' 'POST-MENOPAUSE = 0.10 - 0.40' '-FIRST TRIMESTER = 8.30 - 66.5' 'SECOND TRIMESTER = 18.9 - 66.1' 'THIRD TRIMESTER = 35.8 - 312.4' 'MALES = 0.14 - 2.06'Progesteroneon 63-45-7882Mllmbuhyaipa Lvl31.35 ng/mLInvalid Interpretation CodeSt. Rita'S HospitalComment on above:Result Comment: 'F NON FOLLICULAR = 0.10 - 0.60' 'LUTEAL = 3.00 - 17.5' 'MIDLUTEAL = 3.30 - 18.6' 'POST-MENOPAUSE = 0.10 - 0.40' '-FIRST TRIMESTER = 8.30 - 66.5' 'SECOND TRIMESTER = 18.9 - 66.1' 'THIRD TRIMESTER = 35.8 - 312.4' 'MALES = 0.14 - 2.06'Performed By: #### [id number] #### Miguel [facility] Laboratory [address] [place], [place] [address]Zpioksbymvyrbw 11-65-7630Lkcuijuosiru1.2 ng/mLNormal.[facility] Physician GroupComment on above:Result Comment: Follicular phase 0.1 - 0.9 Luteal phase 1.8 - 23.9 Ovulation phase 0.1 - 12.0 First trimester 11.0 - 44.3 Second trimester 25.4 - 83.3 Third trimester 58.7 - 214.0 Postmenopausal 0.0 - 0.1 Performed at: - [facility] [id number] Scaffold Erector: Cm Sandoval PhD, Phone: [phone] PERFORMED BY: [address] [place] [address] PATHOLOGIST BOW MAKER CUSTOM ARNULFO THOMAS M.D.Performed By: #### PROG #### [facility] , Transvaginal Non-OBon 59-89-4304AC Transvaginal Non-OBExam Date/Time: 01/22/2025 16:22 EST Reason for Exam: N94.6 Report PLEASE SEE US Pelvis Non-OB Complete REPORT DATED: 01/22/2025. Ordering Provider: Nathan POP FINAL REPORT Dictated: 01/27/2025 10:11 am Siddharth Foy MD Signed (Electronic Signature): 01/27/2025 10:11 am Signed by: Siddharth Foy MD Transcribed by: ELOISA Technologist: Filiberto [facility] CenterUS Pelvis Non-OB Completeon 40-05-2586GH Pelvis Non-OB CompleteExam Date/Time: 01/22/2025 16:24 EST [...] Kate Gonzalez MD Transcribed by: ELOISA Technologist: TalyaSt. Rita'S HospitalMILADY,APTIMA HPV,AGE GDLNon 70-60-1678MLL GDLN ACOG TESTINGNote.NOMS HealthcareComment on above:TESTS RESULT FLAG UNITS REF RANGE LAB Clinician Provided Cytology Information Source.............Cervix;Endocervix No. of containers..01 ThinPrep Vial Age Algo ACOG Sarah... -24 12 FLAG LEGEND: L-Low Normal,H-High Normal,LL-Alert Low,HH-Alert High <-Panic Low,>-Panic High,A-Abnormal,AA-Critical Abnormal Performed at: 01 =G [facility] [place] [address] Loren Oneal MD, IGP, RFX APTIMA HPV ASCUNote.[facility] HealthcareComment on above:TESTS RESULT FLAG UNITS REF RANGE LAB DIAGNOSIS: 02 NEGATIVE FOR INTRAEPITHELIAL LESION OR MALIGNANCY. Specimen adequacy: 02 Satisfactory for evaluation. Endocervical and/or squamous metaplastic cells (endocervical component) are present. Performed by: Sophia Calzada, Bottom Buffer ([facility]) . 02 Note: Note 02 [...] Low,>-Panic High,A-Abnormal,AA-Critical Abnormal Performed at: [address] [address] Loren Oneal MD, Performed at: =G - [facility] [id number] Scaffold Erector: Loren Oneal MD, Phone: [phone] Performed at: [facility] [id number] Scaffold Erector: Loren Oneal MD, Phone: [phone] BRUSH-SPATULA CERVIX ENDOCERVIX [facility] 00-17-7570RMHLWqjhmcclq (WHQ) JUHI COPE ([id number]) 1995 F Date Time Provider Department 04/29/24 [...] by CANDIS GARCES on 04/29/24No[facility] 92-77-5855WIBPPxzhkhwet (WHQ) JUHI COPE ([id number]) 1995 F Date Time Provider Department 04/25/24 CHARLENE RODRIGUEZ During your visit today, we recorded the following information about you: Anna De Leon 04/25/2024 1:10 PM Signed Pt got in sooner for surgery with her local senior advocate. Please cancel surgery and all pre and [...] Encounter Status:Closed by SUSI DE LEONLEY on 04/25/24[facility] 12-LEADon 31-14-2300[address] [address] Electrocardiograph Report Signed Patient: JUHI COPE MR#: [id number] : 1995 Acct:[id number] Age/Sex: 28 / F ADM Date: 02/13/24 Loc: PST Attending Dr: Nathan Pop D.O. Ordering Physician: Nathan Pop D.O. Date of Service: 02/13/24 Procedure(s): ECG 12 lead Accession Number(s): [id number] cc: [facility] Test Date: 2024-02-13 Pat Name: JUHI COPE Department: Room: - Gender: Female Lead Shipper: : 1995 Requested By: NATHAN POP Order Number: [id number] Reading MD: MARY KATE ORDAZ Measurements Intervals Warren Rate: 86 P: 31 DC: 133 QRS: 20 QRSD: 89 T: 47 QT: 374 QTc: 449 Interpretive Statements SINUS RHYTHM No previous ECG available for comparison Electronically Signed On 02-14-2024 6:50:27 EDT by MARY KATE ORDAZ Dictated By: Mary Kate Ordaz D.O. Signed By: 02/14/24 0650 DD/ 1455 TD/TT: Leather Etcher:TBHRadiology, Radiologist, MD - 02/14/[address] [address] Electrocardiograph Report Signed Patient: JUHI COPE MR#: [id number] : 1995 Acct:[id number] Age/Sex: 28 / F ADM Date: 02/13/24 Loc: PST Attending Dr: Nathan Pop D.O. Ordering Physician: Nathan Pop D.O. Date of Service: 02/13/24 Procedure(s): ECG 12 lead Accession Number(s): [id number] cc: [facility] Test Date: 2024-02-13 Pat Name: JUHI COPE Department: Room: - Gender: Female Lead Shipper: : 1995 Requested By: NATHAN POP Order Number: [id number] Reading MD: MARY KATE ORDAZ Measurements Intervals Warren Rate: 86 P: 31 DC: 133 QRS: 20 QRSD: 89 T: 47 QT: 374 QTc: 449 Interpretive Statements SINUS RHYTHM No previous ECG available for comparison Electronically Signed On 02-14-2024 6:50:27 EDT by MARY KATE ORDAZ Dictated By: Mary Kate Ordaz D.O. Signed By: 02/14/24 0650 DD/ 1455 TD/TT: Leather Etcher: LANETTE HealthcareECG 12-LEADOrdered By: Radiologist Radiology on 01-95-3684[facility] Work Phone: ECG 12-LEADon 99-98-1580Ertufvfok Study observation (narrative)LANETTE HealthcareUS PELVIS W/ TRANSVAGINALon 72-56-3330KbsRisco, [place] [address] Ultrasound Report Signed Patient: JUHI COPE MR#: [id number] : 1995 Acct:[id number] Age/Sex: 28 / F ADM Date: 01/15/24 Loc: [facility] Attending Dr: Nathan Pop D.O. Ordering Physician: Nathan Pop D.O. Date of Service: 01/15/24 Procedure(s): US pelvis w/ transvaginal Accession Number(s): [id number] cc: Nathan Pop D.O.; Physician,Non-Staff Katherine The [address] [address] Patient Name: JUHI COPE MRN: [id number] date: 1995 Sex: F Assigned Patient Location: [facility] Current Patient Location: [facility] Accession/Order Number: [id number] Exam Date: 01/15/2024 07:57 Report Date: 01/15/2024 [...] Signed By: 01/15/24 1144 DD/ 1142 TD/TT: Leather Etcher:TBHRadiology, Radiologist, - 01/15/2024 [place] [address] Ultrasound Report Signed Patient: JUHI COPE MR#: [id number] : 1995 Acct:[id number] Age/Sex: 28 / F ADM Date: 01/15/24 Loc: [facility] Attending Dr: Nathan Pop D.O. Ordering Physician: Nathan Pop D.O. Date of Service: 01/15/24 Procedure(s): US pelvis w/ transvaginal Accession Number(s): [id number] cc: Nathan Pop D.O.; Physician,Non-Staff M.DKaren The [place] [id number] Patient Name: JUHI COPE MRN: [id number] date: 1995 Sex: F Assigned Patient Location: [facility] Current Patient Location: [facility] Accession/Order Number: [id number] Exam Date: 01/15/2024 07:57 Report Date: 01/15/2024 [...] Signed By: 01/15/24 1144 DD/ 1142 TD/TT: Leather Etcher: LANETTE HealthcareRadiology Study observation (narrative)[facility] HealthcareUS PELVIS W/ TRANSVAGINALOrdered By: Radiologist Radiology on 51-13-7927EJLP [facility] Work Phone: cNPTanya [phone] (Q) JUHI COPE ([id number]) 1995 F Date Time Provider Department 12/12/23 [...] [I10] Encounter Status:Closed by CANDIS GARCES on 12/12/23[facility] 73-88-4967XMXLLzvsvm Visit (GYMGME) JUHI COPE ([id number]) 1995 F Date Time Provider Department 12/10/23 10:30 AM CHARLENE RODRIGUEZ During your visit today, we recorded the following information about you: Pulse Blood pressure Weight 98/minute 124/84 68.9 kg Charlene Rodriguez DO 12/10/2023 3:14 PM Signed [facility] SECTION FOR MINIMALLY INVASIVE GYNECOLOGIC SURGERY OUTPATIENT VISIT DATE 12/10/2023 OUTPATIENT VISIT TYPE Follow-up visit PRIMARY CARE PHYSICIAN: Denny Rodríguez [address] [place] [address] REFERRING PHYSICIAN: Self CHIEF COMPLAINT: No chief [...] MRI: no evidence of Past Gynecologic History: Home Supervisor History LMP: 07/08/2023 (Exact Date), Having periods Age at Menarche: 14 Age at First : 27 Age at Menopause: Home Supervisor History Comments: Sexual Activity: Never; No [...] Skin: Skin color, texture (more content not included)...NormalFlower Hospitalology Cervical or vaginal smear or scraping studyon 84-62-6603UGBA HealthcareCNPNon 07-70-7635RLXWZunpkbsxv ([facility]) JUHI COPE ([id number]) 1995 F Date Time Provider Department 08/02/23 CHARLENE RODRIGUEZ [facility] During your visit today, we recorded [...] completed via Cover MyMeds. Juhi Cope (Morales: [id number]) - [id number] Orilissa 150MG tablets Status: Sent To Plan [...] [I10] Encounter Status:Closed by JENIFER LYNN on 08/02/23[facility] 04-17-9103NWFEPnyjkn Visit (GYMGME) JUHI COPE ([id number]) 1995 F Date Time Provider Department 07/16/23 11:30 AM CHARLENE RODRIGUEZ During your visit today, we recorded the following information about you: Blood pressure Last Period 136/90 07/08/23 Charlene Rodriguez DO 07/16/2023 12:41 PM Signed [facility] SECTION FOR MINIMALLY INVASIVE GYNECOLOGIC SURGERY OUTPATIENT VISIT DATE 07/16/2023 OUTPATIENT VISIT TYPE Follow-up visit PRIMARY CARE PHYSICIAN: Denny Rodríguez [address] [place] [address] REFERRING PHYSICIAN: Denny Rodríguez CHIEF COMPLAINT: No [...] additional bowel lesions identified Past Gynecologic History: Home Supervisor History LMP: 07/08/2023 (Exact Date), Having periods Age at Menarche: 14 Age at First : 27 Age at Menopause: Home Supervisor History Comments: Sexual Activity: Never; No [...] POSITIVES IN BOLD Cons (more content not included)...NormalToledo HospitalMRI FEMALE PELVIS WO/W IVCONon 38-71-1006TBQ FEMALE PELVIS WO/W IVCON* * *Final Report* [...] additional findings. IMPRESSION: No deep infiltrating endometriosis. Leather Etcher: DAVID Transcribe Date/Time: Jun 12 2023 2:54P Dictated by : ASHLEY DUKE MD This examination was interpreted and the report reviewed and electronically signed by: SONIDO FLAHERTY MD on Jun 12 2023 4:51PM EST [id number] Hospitals Health SystemCNPNon 34-25-1452DHVKPdwsbrwqn (GYNMN) JUHI COPE ([id number]) 1995 F Date Time Provider Department 05/11/23 [...] Takes aygestin 5mg daily. 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 Reviewed red flag bleeding symptoms that require trip to ER (soaking greater than one overnight pad per hour, chest pain, shortness of breath, fatigue, palpitations).. Advised keep appt. Gives verbal understanding. Appointments for Next 60 Days Date Time Provider Location Dept Phone 05/17/2023 1:00 PM CHARLENE RODRIGUEZ [facility] [phone] Candis Suárez RN Allergies As of Date: 05/11/2023 (No Known Allergies) Date Reviewed: 05/09/2023 Reviewed by: Jihan Downs APRN.BUSINESS MAIL ENTRY CLERK - Fully Assessed Reason for Visit: [...] [I10] Encounter Status:Closed by CANDIS WILLINGHAM on 05/11/23[facility] 55-17-2688EZLXUyzshy Visit ([facility]) NITO COPEIS ([id number]) 1995 F Date Time Provider Department 05/01/23 10:30 AM JIHAN DOWNS [facility] During your visit today, we recorded the following information about you: Blood pressure Weight Height Last Period 148/64 64.9 kg 1.575 m 04/22/23 Jihan Downs APRN.BUSINESS MAIL ENTRY CLERK 05/09/2023 11:46 AM Signed Juhi Cope is a 28 year old female who presents for problem visit for pain HPI: Pain is week before period and week of period. Worse on her period for every day she's bleeding Urinary - No symptoms GI - Always constipated. No meds [place] - painful always Pain is on left [...] L0 SAB0 IAB0 Ectopic0 Multiple0 Live Births0 Home Supervisor History LMP: 03/26/2023 (Approximate), Having periods Age at Menarche: Age at First : Age at Menopause: Home Supervisor History Comments: Sexual Activity: Never; No [...] physical therapy - or can go locally pelvicPrizedab.[place] & [place] Trial flexeril at bedtime Can consider Baclofen [...] physical therapy - or can go locally pelvicPrizedab.[place] & [place] Trial flexeril at bedtime Can consider Baclofen suppositories - let me know if you want to trial after you go to PT Contin (more content not included)...NormalToledo HospitalCHEMISTRY Ordered By: SYSTEM SYSTEM on 26-53-8823Slnoamu [Mass/Vol]4.3 g/dLNormal3.3 - 5.0 gm/dLFT RemisolAlbumin/Globulin [Mass [...] [Mass/Vol]8.8 mg/dLLow8.9 - 11.1 mg/dLFTMC RemisolChloride [Moles/Vol]100 mmol/EOgz541 - 111 mmol/LFTMC RemisolCO2 [Moles/Vol]24 mmol/L Juerjv38 - 31 mmol/LFTMC RemisolCreatinine [Mass/Vol]1.0 mg/dLNormal0.5 - 1.3 mg/dLFTMC RemisolGFR/1.73 sq M.predicted among blacks MDRD (S/P/Bld) [Vol rate/Area]mL/min/1.73 t7Pcgkzt>=59mL/min/1.73 m2[facility] Chem SGFR/1.73 sq M.predicted among non-blacks MDRD (S/P/Bld) [Vol rate/Area]mL/min/1.73 c3Dacvxu >=59mL/min/1.73 m2[facility] Chem SGlobulin (S) [Mass/Vol]3.6 g/dLNormal1.4 - 4.0 gm/dLFTMC RemisolGlucose [Mass/Vol]104 mg/cBUeswxa91 - 199 mg/dLFTMC Remisol Potassium [Moles/Vol]3.6 mmol/LNormal3.5 - 5.3 mmol/LFTMC RemisolProtein [Mass/Vol]7.9 g/dLHigh6.0 - 7.8 gm/dLFTMC RemisolSodium [Moles/Vol]134 mmol/LLow 135 - 145 mmol/LFTMC RemisolUrea nitrogen [Mass/Vol]10 mg/dLNormal5 - 21 mg/dL [facility] RemisolUrea nitrogen/Creatinine [Mass ratio]10 mg/syLnztvy10 - 20FTMC RemisolHEMATOLOGYOrdered By: Amairani Jenkins on 29-10-5532Ghhczowwuqkp Ql (Bld) Present (01/31/23 2:10 PM)NormalFTMC HemeManSSErythrocyte [...] fLNormal6.4 - 10.8 fLFTMC HemeAutoSSPlatelets (Bld) [#/Vol]471.0 E9/SIsdqva267.0 - 500.0 E9/LFTMC HemeAutoSSRBC (Bld) [#/Vol]4.3 E12/LNormal4.3 [...] - 0.5 E9/L [facility] HemeAutoSSLymphocytes/100 WBC (Bld)31.7 %Ygxzht29.0 - 50.0 %[facility] HemeAutoSS Lymphocytes/Leukocytes Auto (Bld) [Pure # fraction]2.4 E9/LNormal1.0 - 4.0 E9/L [facility] HemeAutoSSMonocytes/100 WBC (Bld)9.1 %Normal4.0 - 14.0 %[facility] HemeAutoSS Monocytes/Leukocytes Auto (Bld) [Pure # fraction]0.7 E9/LNormal0.2 - 1.0 E9/L [facility] HemeAutoSSNeutrophils/100 WBC (Bld)57.4 %Mmzjrs61.0 - 75.0 %[facility] HemeAutoSS Neutrophils/Leukocytes Auto (Bld) [Pure # fraction]4.3 E9/LNormal2.0 - 7.5 E9/L [facility] HemeAutoSSSEROLOGYOrdered By: Patricia Newton on 48-13-5426HBH.beta subunit (U) [Moles/Vol]NegativeNormalFT Man SeroURINALYSISOrdered By: Solomon Leal on 55-96-7451Fltcsqucy Ql (U)Negative (01/31/23 1:57 PM)NormalNegativeFTMC UA Auto SSClarity (U)Clear (01/31/23 1:57 PM)NormalClearFTMC UA Auto SSColor (U)Yellow (01/31/23 1:57 PM)NormalYellowFTMC UA Auto SSEpithelial cells.squamous LM.HPF (Urine sed) [#/Area]3-4 /HPFNormal0-2/HPFFTMC UA Auto SSGlucose Test strip (U) [Mass/Vol]Negative (01/31/23 1:57 PM)NormalNegativeFT UA Auto SSHemoglobin Ql (U)Negative (01/31/23 1:57 PM)NormalNegativeFTMC UA Auto SSKetones (U) [Mass/Vol]Negative (01/31/23 1:57 PM)NormalNegativeFT UA Auto SSLithium.plasma/[place].RBC (Bld) [Mass ratio]0-3 /HPFNormal0-3/HPFFTMC UA Auto SSNitrite Ql (U)Negative (01/31/23 1:57 PM)NormalNegativeH[facility] Auto SSpH (U)6.0 *NA* (01/31/23 1:57 PM)Invalid Interpretation Code5.0 - 9.0[facility] Auto SSProtein (U) [Mass/Vol]Negative (01/31/23 1:57 PM)NormalNegativeH[facility] Auto SSSpecific gravity (U) [Rel density] 1.010 *NA* (01/31/23 1:57 PM)Invalid Interpretation Code1.005 - 1.030[facility] Auto SSUA Spec DescClean Catch (01/31/23 1:57 PM)NormalH[facility] Auto SSUrobilinogen Qn (U)0.7214683 {Aspen'U}/dL Normal0.0 - 1.0 EU/dLHILLCREST [facility] [place] [facility] Auto SSWBC Auto Ql (U)Negative (01/31/23 1:57 PM)NormalNegativeH[facility] Auto SSWBC LM.HPF (Urine sed) [#/Area]0-5 /HPFNormal0-5/HPFHILLCRE[facility] [place] Auto SSBLOOD BANKOrdered By: Teena Quiroz on 15-00-6652ACI/Rh InterpPositiveInvalid Interpretation CodeHILLCREST [facility] BB SubsectionABSC Gel InterpNegative (12/30/22 11:28 AM)NormalH[facility] BB SubsectionCHEMISTRYOrdered By: SYSTEM SYSTEM on 33-65-6042Raazj gap [Moles/Vol]12 mmol/LNormal6 - 16 mEq/LFTMC RemisolCalcium [Mass/Vol]8.6 mg/dLLow8.9 - 11.1 mg/dLFTMC RemisolChloride [Moles/Vol]103 mmol/L Phkwcw300 - 111 mmol/LFTMC RemisolCO2 [Moles/Vol]26 mmol/XGklkmy89 - 31 mmol/L [facility] RemisolCreatinine [Mass/Vol]0.9 mg/dLNormal0.5 - 1.3 mg/dLFTMC Remisol GFR/1.73 sq M.predicted among blacks MDRD (S/P/Bld) [Vol rate/Area]mL/min/1.73 h6Ymqpsy>=59mL/min/1.73 m2FT Chem SGFR/1.73 sq M.predicted among non-blacks MDRD (S/P/Bld) [Vol rate/Area]mL/min/1.73 v1Ddqfmz>=59mL/min/1.73 m2FT Chem S Glucose [Mass/Vol]105 mg/hIRseasq32 - 199 mg/dLFTMC RemisolPotassium [Moles/Vol] 3.8 mmol/LNormal3.5 - 5.3 mmol/LFTMC RemisolSodium [Moles/Vol]137 mmol/LNormal 135 - 145 mmol/LFTMC RemisolUrea nitrogen [Mass/Vol]17 mg/dLNormal5 - 21 mg/dL [facility] RemisolUrea nitrogen/Creatinine [Mass ratio]19 mg/ufEmydzm37 - 20FT[facility] RemisolCOAGULATIONOrdered By: Courtney Tnag on 72-38-7793gEZK Coag (PPP) [Time]31.5 aCdkbwo67.1 - 36.5 second(s)[facility] Auto CoagINR Coag (PPP) [Relative time]1.0 {INR}Invalid Interpretation CodeFTMC Auto CoagPT Coag (PPP) [Time]11.7 sNormal 9.4 - 12.5 second(s)[facility] Auto CoagHEMATOLOGYOrdered By: SYSTEM SYSTEM on 95-61-5336Zhmtyxzts/100 WBC (Bld)1.2 %Normal0.0 - 2.0 %[facility] HemeAutoSS Basophils/Leukocytes Auto (Bld) [Pure # fraction]0.1 E9/LNormal0.0 - 0.2 E9/L [facility] HemeAutoSSEosinophils/100 WBC (Bld)4.1 %Normal0.0 - 8.0 %[facility] HemeAutoSS Eosinophils/Leukocytes Auto (Bld) [Pure # fraction]0.2 E9/LNormal0.0 - 0.5 E9/L [facility] HemeAutoSSLymphocytes/100 WBC (Bld)40.5 %Xwwgoe71.0 - 50.0 %[facility] HemeAutoSS Lymphocytes/Leukocytes Auto (Bld) [Pure # fraction]2.3 E9/LNormal1.0 - 4.0 E9/L [facility] HemeAutoSSMonocytes/100 WBC (Bld)7.6 %Normal4.0 - 14.0 %[facility] HemeAutoSS Monocytes/Leukocytes Auto (Bld) [Pure # fraction]0.4 E9/LNormal0.2 - 1.0 E9/L [facility] HemeAutoSSNeutrophils/100 WBC (Bld)46.6 %Qrwqpi07.0 - 75.0 %[facility] HemeAutoSS Neutrophils/Leukocytes Auto (Bld) [Pure # fraction]2.6 E9/LNormal2.0 - 7.5 E9/L [facility] HemeAutoSSHEMATOLOGYOrdered By: Courtney Case on 36-06-6664Vxlvnnumwor distribution width (RBC) [Ratio]14.1 %Elnxqx74.9 - 14.2 %[facility] HemeAutoSS Hematocrit (Bld) [Volume fraction]31.5 %Low34.0 - 46.0 %[facility] HemeAutoSS Hemoglobin (Bld) [Mass/Vol]10.0 g/dLLow12.0 - 16.0 gm/dLFTMC HemeAutoSSMCH (RBC) [Entitic mass]25.3 pgLow27.0 - 34.0 pgFTMC HemeAutoSSMCHC (RBC) [Mass/Vol]31.8 g/mKGmedbx29.4 - 36.0 gm/dLFTMC HemeAutoSSMCV (RBC) [Entitic vol]79.6 fLLow80.0 - 100.0 fLFTMC HemeAutoSSPlatelet mean volume (Bld) [Entitic vol]7.7 fLNormal6.4 - 10.8 fLFTMC HemeAutoSSPlatelets (Bld) [#/Vol]264.0 E9/BYnodao054.0 - 500.0 E9/LFTMC HemeAutoSSRBC (Bld) [#/Vol]4.0 E12/LLow4.3 - 5.9 E12/LFTMC HemeAutoSS WBC corrected for nucl RBC Auto (Bld) [#/Vol]5.7 E9/LNormal4.0 - 11.0 E9/LFTMC HemeAutoSSURINALYSISOrdered By: Courtney Case on 95-59-6051Zkjymhvv LM Ql (Urine sed)Trace /HPFNormalTrace/HPFFTMC UA Auto SSBilirubin Ql (U)Negative (12/30/22 8:53 AM)NormalNegativeH[facility] [place] [facility] Auto SSClarity (U)Clear (12/30/22 8:53 AM)NormalClearFDRUMRIGHT REGIONAL [facility] – [place] UA Auto SSColor (U)Yellow (12/30/22 8:53 AM)NormalYellowHILLCREST [facility] [place] [facility] Auto SSEpithelial cells.squamous LM.HPF (Urine sed) [#/Area]0-2 /HPFNormal0-2/HPFHILLCRE[facility] [place] [facility] Auto SSGlucose Test strip (U) [Mass/Vol]Negative (12/30/22 8:53 AM)NormalNegativeH[facility] [place] [facility] Auto SSHemoglobin Ql (U)2+ *ABN* (12/30/22 8:53 AM)Invalid Interpretation CodeNegativeH[facility]CRE[facility] [place] [facility] Auto SSKetones (U) [Mass/Vol]Negative (12/30/22 8:53 AM)NormalNegativeH[facility]CRE[facility] [place] [facility]A Auto SSLithium.plasma/[place].RBC (Bld) [Mass ratio]4-20 /HPFNormal0-3/HPFHILLCRE[facility] [place] [facility] Auto SSNitrite Ql (U)Negative (12/30/22 8:53 AM)NormalNegativeH[facility] [place] [facility] Auto SSpH (U)6.0 *NA* (12/30/22 8:53 AM)Invalid Interpretation Code5.0 - 9.0[facility] Auto SSProtein (U) [Mass/Vol]Negative (12/30/22 8:53 AM)NormalNegativeH[facility] [place] [facility] Auto SSSpecific gravity (U) [Rel density] 1.025 *NA* (12/30/22 8:53 AM)Invalid Interpretation Code1.005 - 1.030[facility] Auto SSUA Spec DescClean Catch (12/30/22 8:53 AM)NormalHILLCRE[facility] [place] [facility] Auto SSUrobilinogen Qn (U)0.7796736 {Aspen'U}/dL Normal0.0 - 1.0 EU/dLHILLCREST [facility] [place] [facility] Auto SSWBC Auto Ql (U)Negative (12/30/22 8:53 AM)NormalNegativeH[facility] [place] Auto SSWBC LM.HPF (Urine sed) [#/Area]0-5 /HPFNormal0-5/HPFHILLCREST [facility] [place] Auto SSOffice Visiton 80-16-7147Nsikzf-up [id number] Juhi Cope 1995 F Date Provider Department Center 12/05/2022 [id number], GINA [facility] W[facility] None Chart Close Cosign Required by: Opal Ross MD[VARUND] No family history on file Level of Service:12920 DC OFFICE/OUTPATIENT ESTABLISHED LOW MDM 20-29 MIN (GE,GC) Reason for Visit and Comments: Blood Pressure Check [299][facility] SHSProgress Noteon 40-52-7337Mpykczsi Note Attestation signed by Opal Ross MD at 12/05/2022 3:19 PM [facility]: This patient was seen in [...] about 4 weeks (around 01/02/2023) for Visit .[facility] SHSProgress NoteVital signs BP 127/87 Weight 149.2lb Pulse 106 Temp 96.7NoTrinity Health SHSProgress Noteon 04-19-4356Fshmdxdg Note Late entry due to patient care. Resident Lacy notified of B.P 138/96 heart rate 119 around 1236 see flowsheet. Also notified checked in 1 hour via orders and B.P 143/87 pulse 111. Clarified if should check in 1 hour according to orders. . Also notified patient has discharge order in. Resident Lacy states No on rechecking. Ok to discharge. Will make patient aware.[facility] SHSProgress NotePOSTPARTUM VAGINAL DELIVERY POST DAY [...] Vanessa Zambrano DO 12/02/2022, 5:09 [facility]42on 00-54-95067163.5mm flanges given to patient. Encouraged her to call for observation of pump session and smaller flanges. Martha in NICU to assist with personal pump.[facility] CityCARECOORDon 26-25-1382HYPVQOQQQ89 year old admitted for induction of labor [...] to home. Denies any concerns at this time.[facility] SHSProgress Noteon 41-13-7130Oslzwqtb Note NOTE - VAGINAL DELIVERY POST DAY [...] with more than 50% of the total kcgo-hq-xkdr time of the visit in counseling/coordination of care. , 9:22 [facility] SBS73zo 44-95-881027Mamys given to patient and educated how to use and to bring to [facility] CIO19Dhqmip pump use indicated for this pt. 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 Bowden; Dr. Kramer Information: Information for the patient's : Francie Cope [[id number]] Information for the patient's : Francie Cope [[id number]] Description: normal Meconium Noted: No Anesthesia: epidural [...] Kramer, DO 11/30/2022, 4:04 [facility]NS[facility] SHSProgress Noteon 18-52-5579Enceorzz NoteFoley catheter inserted by Andi Bacon RN, catheter drained and emptied for 900cc. Catheter secured to leg.[facility] SHSProgress NotePatient up to bathroom but remains unable to void. Bladder scan completed and reads >570. Sent secure message to Dr. Ruiz letting her know the above. Instructed to place chauhan catheter.[facility] Joseph'sProgress Note Secure message sent to Dr. Gamez stating patient is having difficulty voiding, patient's perineum is very swollen, and that patient was straight cathed for 950ml at noon. Received order for benadryl to help with swelling. [facility]. Joseph'sProess NoteNutrition rescreen completed. Chart reviewed. Patient to be monitored and followed by the diet central supply technician. Suad Samuels, DTSydenham Hospital SHSProgress NotePatient unable to void, last straight cathed at 0400. Bladder scan obtained for >928 ml, fundus +2 and shifted to right. Patient straight cathed on attempt x2 by Andi Bacon RN for 950cc. Will continue to monitor.[facility] SHSCAREPLNon 27-25-1942RVEUDJGLiw patient will continue to make cervical change. Clotilde Mg, RNNoTrinity Health SHSLaboratory - Hematology and Cell countsOrdered By: Lucrecia Cervantes on 81-83-4772Pwvuijvpt (Bld) [#/Vol]386 10*3/uL140 - 440 10*3/uLSusalem city hospital HealthPlatelets (Bld) [#/Vol]Ordered By: Lucrecia Cervantes on 43-91-9213Jzihqzlgdghofh and review of laboratory resultsNormal [facility]. agalactiae DNA TENA+probe Ql (Unsp spec)on 11-29-2022 Group B Strep ScreenNot detectedNot [facility] HealthInterpretation and review of laboratory resultsNoOhio State Health SystemMethodology: real-time PCRSGreater Regional HealthABO and Rh group Confirm Nom (Bld)on 22-76-6704MCJ group Nom (Bld)OSumma HealthD Ag Ql (RBC)PositiveSumOhio State Harding Hospital HealthBlood type and Crossmatch panel (Bld)on 30-36-1564UJK group Nom (Bld)OSumma HealthBlood group antibody screen GEL QlNegativeSumma HealthD Ag Ql (RBC)PositiveSumct Healthmma HealthCBC panel Auto (Bld)Ordered By: Lauren Ayers on 21-08-0157Vcfhljnubbf distribution width (RBC) [Ratio]13.3 %11.5 - 14.5 %[facility] HealthHematocrit (Bld) [Volume fraction]33.8 %Low35.0 - 47.0 %Summa HealthHemoglobin (Bld) [Mass/Vol] 11.2 g/dLLow11.7 - 16.0 g/dLSumma HealthInterpretation and review of laboratory resultsAbnormalSThe Jewish HospitalH (RBC) [Entitic mass]28.0 pg26.0 - 34.0 pgSThe Jewish HospitalHC (RBC) [Mass/Vol]33.1 %32.0 - 36.0 %[facility] HealthMCV (RBC) [Entitic vol]84.4 fL80.0 - 98.0 fLSumma HealthPlatelet mean volume (Bld) [Entitic vol]8.3 fL7.4 - 12.4 fLSumma HealthPlatelets (Bld) [#/Vol]319 10*3/uL140 - 440 10*3/uL [facility]ma HealthRBC (Bld) [#/Vol]4.00 10*6/uL3.8 - 5.20 10*6/uLSumma HealthWBC (Bld) [#/Vol]18.9 10*3/uLHigh3.6 - 10.7 10*3/uLSumma HealthProtestant Deaconess Hospital HealthComprehensive metabolic 1998 panelon 94-08-8555Vdbgqhx [Mass/Vol]3.9 g/dL3.5 - 5.0 g/dLSumma HealthALP [Catalytic [...] HealthGFR/1.73 sq M.predicted MDRD (S/P/Bld) [Vol rate/Area]- Medina HospitalComment on above: Calculation based on the Chronic Kidney Disease Epidemiology Collaboration (CKD- EPI) equation refitwithout adjustment for raceGlucose [Mass/Vol]158 mg/hBIjms16 - 100 mg/dLSumma HealthInterpretation and review of laboratory resultsAbnormal [facility] HealthPotassium [Moles/Vol]4.1 mmol/L3.5 - 5.1 mmol/LSumma HealthProtein [Mass/Vol]7.5 g/dL6.3 - 8.2 g/dLSumma HealthSodium [Moles/Vol]133 mmol/CHgy051 - 145 mmol/LSumma HealthUrea nitrogen [Mass/Vol]5 mg/dLLow7 - 17 mg/dLSumma HealthSumma HealthLaboratory - Hematology and Cell countsOrdered By: Shruthi Fontana on 93-00-6197Bfhfhhugk (Bld) [#/Vol]335 10*3/uL140 - 440 10*3/uLSumma HealthPlatelets (Bld) [#/Vol]Ordered By: Shruthi Fontana on 11-28-2022 Interpretation and review of laboratory resultsNormMercy Health [facility] Hospital Health CHEMISTRYOrdered By: Scope 5 on 62-99-4658Ysbc T4 index Calc [Mass/Vol] 5.98 ng/dLNormal5.90 - [...] Code0.1 - 0.9 mg/dL FT RemisolChloride [Moles/Vol]102 mmol/SSypovn691 - 111 mmol/LFTMC RemisolCO2 [Moles/Vol]18 mmol/LLow21 - 31 mmol/LFTMC RemisolCreatinine [Mass/Vol]0.6 mg/dL Normal0.5 - 1.3 mg/dLFTMC RemisolGFR/1.73 sq M.predicted among blacks MDRD (S/P/Bld) [Vol rate/Area]mL/min/1.73 q3Rdfzfq>=59mL/min/1.73 m2FT[facility] Chem S GFR/1.73 sq M.predicted among non-blacks MDRD (S/P/Bld) [Vol rate/Area] mL/min/1.73 c1Oqownd>=59mL/min/1.73 m2[facility] Chem SGlobulin (S) [Mass/Vol]4.0 g/dL Normal1.4 - 4.0 gm/dLHILLCREST [facility] [place] RemisolPotassium [Moles/Vol]3.7 mmol/LNormal3.5 - 5.3 mmol/LFTMC RemisolProtein [Mass/Vol]7.1 g/dLNormal6.0 - 7.8 gm/dLHILLCREST [facility] Remisol Sodium [Moles/Vol]132 mmol/MAfp648 - 145 mmol/LFTMC RemisolUrate [Mass/Vol]4.9 mg/dLNormal2.2 - 7.4 mg/dLHILLCREST [facility] [place] RemisolUrea nitrogen [Mass/Vol]7 mg/dLNormal5 - 21 mg/dLHILLCREST [facility] RemisolCOAGULATIONOrdered By: Amairani Jenkins on 41-34-7248xSFR Coag (PPP) [Time]25.3 tUwktll53.1 - 36.5 second(s)[facility] Auto Coag Fibrin+Fibrinogen fragments (S) [Mass/Vol]>10 and <40 *ABN* (11/27/22 3:14 PM)Invalid Interpretation Code<10[facility] Man SeroFibrinogen Coag (PPP) [Mass/Vol]539 mg/oFXzrq416 - 393 mg/dLHILLCREST [facility] [place] Auto CoagINR Coag (PPP) [Relative time]0.9 {INR}Invalid Interpretation CodeHILLCREST [facility] [place] Auto CoagPT Coag (PPP) [Time]10.1 sNormal9.4 - 12.5 second(s)[facility] Auto CoagHEMATOLOGYOrdered By: Raquel Arteaga on 92-92-9635Mjmmaupzhrs distribution width (RBC) [Ratio]12.9 %Ezwqkw21.9 - 14.2 % [facility] HemeAutoSSHematocrit (Bld) [Volume fraction]34.2 %Vgourq36.0 - 46.0 %[facility] HemeAutoSSHemoglobin (Bld) [Mass/Vol]11.0 g/dLLow12.0 - 16.0 gm/dLHILLCREST [facility] HemeAutoSSMCH (RBC) [Entitic mass]27.3 fgNefnoq28.0 - 34.0 pgFTMC HemeAutoSSMCHC (RBC) [Mass/Vol]32.3 g/rCQpvmuf68.4 - 36.0 gm/dLFT HemeAutoSSMCV (RBC) [Entitic vol]84.6 hTYbwftg73.0 - 100.0 fLFT HemeAutoSSPlatelet mean volume (Bld) [Entitic vol]8.2 fLNormal6.4 - 10.8 fLFT HemeAutoSSPlatelets (Bld) [#/Vol]273.0 E9/MMizzpc972.0 - 500.0 E9/LFC HemeAutoSSRBC (Bld) [#/Vol]4.0 E12/LLow4.3 - 5.9 E12/LFDRUMRIGHT REGIONAL HOSPITAL – [place] HemeAutoSSWBC corrected for nucl RBC Auto (Bld) [#/Vol]15.7 E9/LHigh4.0 - 11.0 E9/LFC HemeAutoSSComment on above:Result Comment: Slide reviewed by ts Unable to obtain accurate platelet count due to platelet clumping. Platelet count estimate appears normal on slide..URINALYSISOrdered By: Amairani Jenkins on 94-13-3716Wodznkymp Ql (U)Negative (11/27/22 1:55 PM)NormalNegativeH[facility]CRE[facility] [place] [facility]A Auto SSClarity (U)Clear (11/27/22 1:55 PM)NormalClearFDRUMRIGHT REGIONAL HOSPITAL – [place] UA Auto SSColor (U)Yellow (11/27/22 1:55 PM)NormalYellowFT UA Auto SSEpithelial cells.squamous LM.HPF (Urine sed) [#/Area]3-4 /HPFNormal0-2/HPFFTMC UA Auto SSGlucose Test strip (U) [Mass/Vol]Negative (11/27/22 1:55 PM)NormalNegativeH[facility] Auto SSHemoglobin Ql (U)1+ *ABN* (11/27/22 1:55 PM)Invalid Interpretation CodeNegativeFT UA Auto SSKetones (U) [Mass/Vol]Negative (11/27/22 1:55 PM)NormalNegativeH[facility]A Auto SSLithium.plasma/[place].RBC (Bld) [Mass ratio]4-20 /HPFNormal0-3/HPFHILLCREST [facility] [place] [facility] Auto SSNitrite Ql (U)Negative (11/27/22 1:55 PM)NormalNegativeH[facility] Auto SSpH (U)6.5 *NA* (11/27/22 1:55 PM)Invalid Interpretation Code5.0 - 9.0[facility] Auto SSProtein (U) [Mass/Vol]Negative (11/27/22 1:55 PM)NormalNegativeH[facility] Auto SSSpecific gravity (U) [Rel density] 1.010 *NA* (11/27/22 1:55 PM)Invalid Interpretation Code1.005 - 1.030[facility]A Auto SSUA Spec DescClean Catch (11/27/22 1:55 PM)NormalHILLCREST [facility] [place] [facility]A Auto SSUrobilinogen Qn (U)0.2697634 {Aspen'U}/dL Normal0.0 - 1.0 EU/dLHILLCREST [facility] [place]A Auto SSWBC Auto Ql (U)Negative (11/27/22 1:55 PM)NormalNegativeH[facility]CRE[facility] Auto SSWBC LM.HPF (Urine sed) [#/Area]0-5 /HPFNormal0-5/HPFHILLCREST [facility]A Auto SSCHEMISTRYOrdered By: SYSTEM SYSTEM on 07-14-2022 Albumin [Mass/Vol]3.6 g/dLNormal3.3 - 5.0 gm/dLHILLCREST [facility] RemisolAlbumin/Globulin [Mass ratio]1.1 {ratio}Normal1.1 - 2.2FTMC RemisolALP [Catalytic activity/Vol]41 [iU]/gYimnaw89 - 98 Int._Unit/LFTMC RemisolALT No additional P-5'-P [Catalytic activity/Vol]19 [iU]/dNormal6 - 46 Int._Unit/LFTMC RemisolAnion gap [Moles/Vol] 11 mmol/LNormal6 - 16 mEq/LFTMC RemisolAST [Catalytic activity/Vol]21 [iU]/d Normal5 - 43 Int._Unit/LFT[facility] RemisolBilirubin [Mass/Vol]0.7 mg/dLNormal0.0 - 1.1 mg/dLH[facility] [place] RemisolBilirubin.direct [Mass/Vol]0.1 mg/dLNormal0.1 - 0.4 mg/dLFT[facility] RemisolBilirubin.indirect [Mass or moles/Vol]0.6 mg/dLNormal0.1 - 0.9 mg/dLFT[facility] RemisolCalcium [Mass/Vol]8.9 mg/dLNormal8.9 - 11.1 mg/dLFT[facility] RemisolChloride [Moles/Vol]107 mmol/QHkhhrf457 - 111 mmol/LFT[facility] RemisolCO2 [Moles/Vol]22 mmol/L Dsavak59 - 31 mmol/LFT[facility] RemisolCreatinine [Mass/Vol]0.6 mg/dLNormal0.5 - 1.3 mg/dLFT[facility] RemisolGFR/1.73 sq M.predicted among blacks MDRD (S/P/Bld) [Vol rate/Area]mL/min/1.73 h6Xqzfyj>=59mL/min/1.73 m2[facility] Chem SGFR/1.73 sq M.predicted among non-blacks MDRD (S/P/Bld) [Vol rate/Area]mL/min/1.73 o2Ouytgq >=59mL/min/1.73 m2[facility] Chem SGlobulin (S) [Mass/Vol]3.3 g/dLNormal1.4 - 4.0 gm/dLFT[facility] RemisolGlucose [Mass/Vol]99 mg/lGRiupnj74 - 199 mg/dLFT[facility] Remisol Potassium [Moles/Vol]3.5 mmol/LNormal3.5 - 5.3 mmol/LFT[facility] RemisolProtein [Mass/Vol]6.9 g/dLNormal6.0 - 7.8 gm/dLFT[facility] RemisolSodium [Moles/Vol]136 mmol/L Jryqhp207 - 145 mmol/LFT[facility] RemisolUrea nitrogen [Mass/Vol]8 mg/dLNormal5 - 21 mg/dLFT[facility] RemisolUrea nitrogen/Creatinine [Mass ratio]13 mg/itBkbiqt14 - 20[facility] RemisolHEMATOLOGYOrdered By: SYSTEM SYSTEM on [id number]/100 WBC (Bld) 0.3 %Normal0.0 - 2.0 %[facility] [...] 7.5 E9/LFTMC HemeAutoSSHEMATOLOGYOrdered By: Teena Quiroz on [id number] distribution width (RBC) [Ratio]12.9 %Normal 10.9 - 14.2 %[facility] HemeAutoSSHematocrit (Bld) [Volume fraction]33.6 %Low34.0 - 46.0 %[facility] HemeAutoSSHemoglobin (Bld) [Mass/Vol]11.5 g/dLLow12.0 - 16.0 gm/dL [facility] HemeAutoSSMCH (RBC) [Entitic mass]28.5 tgZfuznw25.0 - 34.0 pgFTMC HemeAutoSSMCHC (RBC) [Mass/Vol]34.1 g/nHPnxtlq30.4 - 36.0 gm/dLFTMC HemeAutoSS MCV (RBC) [Entitic vol]83.5 hUTirxbh69.0 - 100.0 fLFTMC HemeAutoSSPlatelet mean volume (Bld) [Entitic vol]8.1 fLNormal6.4 - 10.8 fLHILL[facility] [place] HemeAutoSSPlatelets (Bld) [#/Vol]271.0 E9/VNblqrk255.0 - 500.0 E9/[facility] HemeAutoSSRBC (Bld) [#/Vol] 4.0 E12/LLow4.3 - 5.9 E12/[facility] HemeAutoSSWBC corrected for nucl RBC Auto (Bld) [#/Vol]13.9 E9/LHigh4.0 - 11.0 E9/[facility] HemeAutoSSURINALYSISOrdered By: Deirdre Gilliam on [id number] LM Ql (Urine sed)Trace /HPFNormalTrace/HPFHILL[facility] [place] Auto SSBilirubin Ql (U)Negative (07/14/22 5:00 AM)NormalNegativeHILLCREST [facility] [place] Auto SSClarity (U)Clear (07/14/22 5:00 AM)NormalClearFDRUMRIGHT REGIONAL [facility] [place] Auto SSColor (U)Yellow (07/14/22 5:00 AM)NormalYellowHILLCREST [facility] [place] Auto SSEpithelial cells.squamous LM.HPF (Urine sed) [#/Area]3-4 /HPFNormal0-2/HPFHILL[facility] [facility] Auto SSGlucose Test strip (U) [Mass/Vol]Negative (07/14/22 5:00 AM)NormalNegativeHILLCRE[facility] [facility] Auto SSHemoglobin Ql (U)Trace *ABN* (07/14/22 5:00 AM)Invalid Interpretation CodeNegativeHILLCREST [facility] Auto SSKetones (U) [Mass/Vol]Negative (07/14/22 5:00 AM)NormalNegativeHILLCRE[facility] [place] Auto SSLithium.plasma/[place].RBC (Bld) [Mass ratio]0-3 /HPFNormal0-3/HPFH[facility] Auto SSMucus Ql (Urine sed)Trace (07/14/22 5:00 AM)NormalHILLCREST [facility] Auto SSNitrite Ql (U)Negative (07/14/22 5:00 AM)NormalNegativeHILLCREST [facility] – [place] Auto SSpH (U)6.0 *NA* (07/14/22 5:00 AM)Invalid Interpretation Code5.0 - 9.0[facility] [place] [facility] SSProtein (U) [Mass/Vol]Negative (07/14/22 5:00 AM)NormalNegativeHILLCREST [facility] Auto SSSpecific gravity (U) [Rel density] 1.020 *NA* (07/14/22 5:00 AM)Invalid Interpretation Code1.005 - 1.030[facility] [place] Auto SSUA Spec DescClean Catch (07/14/22 5:00 AM)NormalH[facility] [facility] [place] Auto SSUrobilinogen Qn (U)0.0021233 {Aspen'U}/dLNormal0.0 - 1.0 EU/dLHILLCREST [facility] [place] Auto SSWBC Auto Ql (U)Negative (07/14/22 5:00 AM)NormalNegativeHILLCREST [facility] [facility] [place] Auto SSWBC LM.HPF (Urine sed) [#/Area]0-5 /HPFNormal0-5/HPFHILLCREST H[facility] [facility] [place] Auto SSCHEMISTRYOrdered By: SYSTEM SYSTEM on 88-58-2851Wkczgph [Mass/Vol]4.4 g/dLNormal3.3 - 5.0 gm/dLFTMC Remisol Albumin/Globulin [Mass ratio]1.1 {ratio}Normal1.1 - 2.2[facility] RemisolALP [Catalytic activity/Vol]64 [iU]/sPubsdn99 - 98 Int._Unit/LFTMC RemisolALT No additional P-5'-P [Catalytic activity/Vol]107 [iU]/dHigh6 - 46 Int._Unit/LFTMC RemisolAST [Catalytic activity/Vol]63 [iU]/dHigh5 - 43 Int._Unit/LFT[facility] Remisol Bilirubin [Mass/Vol]1.5 mg/dLHigh0.0 - 1.1 mg/dLFTMC RemisolBilirubin.direct [Mass/Vol]0.2 mg/dLNormal0.1 - 0.4 mg/dLFTMC RemisolBilirubin.indirect [Mass or moles/Vol]1.3 mg/dLHigh0.1 - 0.9 mg/dLFTMC RemisolCholesterol [Mass/Vol]193 mg/rQQviebm486 - 200 mg/dLFTMC RemisolCholesterol in HDL [Mass/Vol]64 mg/dL Invalid Interpretation CodeFTMC RemisolCholesterol in LDL [Mass/Vol]116 mg/dL Normal<=129mg/dLFTMC RemisolCholesterol in VLDL [Mass/Vol]13 mg/dLNormal7 - 40 mg/dLFTMC RemisolGlobulin (S) [Mass/Vol]3.9 g/dLNormal1.4 - 4.0 gm/dLFTMC RemisolProtein [Mass/Vol]8.3 g/dLHigh6.0 - 7.8 gm/dLFTMC RemisolTriglyceride [Mass/Vol]67 mg/dLNormal<=149mg/dLFTMC RemisolCOAGULATIONOrdered By: Courtney Case on 51-52-2364GMS Coag (PPP) [Relative time]1.0 {INR}Invalid Interpretation Code [facility] Auto CoagPT Coag (PPP) [Time]12.4 xXzcrfb30.2 - 12.9 second(s)[facility] Auto CoagHEMATOLOGYOrdered By: SYSTEM SYSTEM on 64-95-4550Mzqwkzpsh/100 WBC (Bld)0.7 %Normal0.0 - 2.0 %[facility] HemeAutoSSBasophils/Leukocytes Auto (Bld) [Pure # fraction]0.0 E9/LNormal0.0 - 0.2 E9/LFTMC HemeAutoSSEosinophils/100 WBC (Bld)3.2 %Normal0.0 - 8.0 %[facility] HemeAutoSSEosinophils/Leukocytes Auto (Bld) [Pure # fraction]0.2 E9/LNormal0.0 - 0.5 E9/LFTMC HemeAutoSSLymphocytes/100 WBC (Bld) 31.9 %Qilfjy33.0 - 50.0 %[facility] HemeAutoSSLymphocytes/Leukocytes Auto (Bld) [Pure # fraction]1.9 E9/LNormal1.0 - 4.0 E9/LFTMC HemeAutoSSMonocytes/100 WBC (Bld)9.1 %Normal4.0 - 14.0 %[facility] HemeAutoSSMonocytes/Leukocytes Auto (Bld) [Pure # fraction]0.5 E9/LNormal0.2 - 1.0 E9/LFTMC HemeAutoSSNeutrophils/100 WBC (Bld) 55.1 %Pczmit87.0 - 75.0 %[facility] HemeAutoSSNeutrophils/Leukocytes Auto (Bld) [Pure # fraction]3.3 E9/LNormal2.0 - 7.5 E9/LFTMC HemeAutoSSHEMATOLOGYOrdered By: Chivo Ward on 90-82-0931Bzmybesbkzf distribution width (RBC) [Ratio]12.9 % Yrenmf76.9 - 14.2 %[facility] HemeAutoSSHematocrit (Bld) [Volume fraction]40.1 %Normal 34.0 - 46.0 %[facility] HemeAutoSSHemoglobin (Bld) [Mass/Vol]13.2 g/pAQxjvka74.0 - 16.0 gm/dLFTMC HemeAutoSSMCH (RBC) [Entitic mass]27.7 szYrscfq48.0 - 34.0 pgFTMC HemeAutoSSMCHC (RBC) [Mass/Vol]32.8 g/uMQnoiht07.4 - 36.0 gm/dLFTMC HemeAutoSS MCV (RBC) [Entitic vol]84.3 aOUpmhux77.0 - 100.0 fLFTMC HemeAutoSSPlatelet mean volume (Bld) [Entitic vol]8.5 fLNormal6.4 - 10.8 fLFTMC HemeAutoSSPlatelets (Bld) [#/Vol]299.0 E9/ANdjduj621.0 - 500.0 E9/LFTMC HemeAutoSSRBC (Bld) [#/Vol] 4.8 E12/LNormal4.3 - 5.9 E12/LFTMC HemeAutoSSWBC corrected for nucl RBC Auto (Bld) [#/Vol]5.9 E9/LNormal4.0 - 11.0 E9/LFC HemeAutoSSLMPon 15-49-2092Ykfj risk assessmenta) No falls within the last pbavRZ-QHAFC-Gnogfh 320 Work Phone: Last menstrual period start ksbrmcppfiVF-LSIYB-Upzacv 320 Work Phone: Tobacco use status CPHSb) EiWH-OJZEQ-Evnawq 320 Work Phone: 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 History of Present Tpotikg89 yo presents as a follow up for [...] again engaged x 1 year working at [employer] [place] Review of Systems Constitutional: no fever, no [...] hours Vitals Vital Signs Recorded: 09Feb2022 11:41AM Wumgdjam584 Gvmdbmmco03 Height5 ft 2 in Yequfu685 lb BMI Zqjppavrov65.51 kg/m2 BSA Calculated1.61 Tobacco Useb) No Fall [...] NormalUH TouchworksXR KNEE LEFT (MIN 4 VIEWS)on 50-55-7725HI KNEE LEFT (MIN 4 VIEWS)EXAM: XR KNEE [...] Joe Lopez MD 09/29/21 Final resultNormalMercy Marcin Mountain West Medical CenterOB/METAL WORKER - Office Visiton 89-46-3718NH/METAL WORKER - Office VisitDiagnoses/Problems Assessed Anxiety (300.00) (F41.9) Orders Start: FLUoxetine HCl - 20 MG Oral Capsule; TAKE 1 CAPSULE Daily Provider Impressions 26 yo 1. 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 History of Present Rlqrpqm20 yo with endometriosis was on norethindrone d/c'd [...] Every 6 hours Vitals Vital Signs Recorded: 48Zsh3219 01:19PM Rmznhgve591 Hgzjtdjra36 Height5 ft 2 in Hiapwu363 lb BMI Jylldoqolb36.58 kg/m2 BSA Calculated1.53 Tobacco Useb) No Fall Screeninga) No falls within the last year EHR24Ruy0697 Pain Scale0 Signatures Electronically signed by : Charlene Rodriguez DO; Jun 03 2021 10:55AM EST (Author) NormalUH TouchworksChlamydia sp identified Org specific cx Nom (Genital specimen)Ordered By: Jackelyn Dela Cruz on 02-93-6107Naqzjzmr Chlamydia Screen NegativeNegativeSumct HealthHBV surface Ag IA Qlon 19-86-6151Isjfjjkm Hepatitis B Surface AgNegativeNegative, None DetectedSumma HealthHIV 1+2 Ab and HIV1 p24 Ag IA.rapid Nom (S/P/Bld)on 02-83-6559AUF-1/HIV-2 AbNegativeSumma HealthNo Panel Informationon 87-85-1758Kkzgiikn Gonorrhea ScreenNegativeNegativeSumma Health External Rubella IGG QuantitationPositiveSumma HealthSumma HealthNo Panel InformationOrdered By: Jackelyn Dela Cruz on 74-71-0670Curkk HealthReagin Ab RPR Ql (S)on 10-93-2248Wgwoqexn RPRNon-ReactiveBorderline, Nonreactive, Weakly Reactive, EquivocalSumma HealthOB/METAL WORKER - Office Visiton 81-56-9907MR/METAL WORKER - Office VisitDiagnoses/Problems Assessed Endometriosis (617.9) (N80.9) Never smoker Orders Stop: Norethindrone Acetate 5 MG Oral Tablet Tobacco Use Screening; Status:Complete; Done: 70Jof8256 Provider Impressions 26 yo 1. endometriosis: rx'd norethindrone referral to pelvic floor PT rtc in 3-6 months if continues to have pain, will consider centrally acting neuromodulator Chief Complaint Patient presents today for f/u for endometriosis PAP per patient 2019 [facility]NL Home Health Specialist declined -CATY,MANAGER SCHEDULING LMP 04/11/21 History of Present Quiqkwc46 yo with endometriosis bleeding once per month, [...] DO; Apr 20 2021 11:04AM EST (Author) [facility] TouchworksTobacco Screening.on 96-16-6264Twov risk assessmenta) No falls within the last zevuPS-NVQNR-Eaqlrj 320 Work Phone: Lasc menstrual period start wybo35Ieh1126 AB-IHEUY-Wtvjew 320 Work Phone: Tobacco Screening.b) VkYD-GUARB-Roazdu 320 Work Phone: Radiologyon 67-61-5093PP Kidney - bilateralNormal ZB-Bvsrsjg-Zsaarvgvc Work Phone: us RENAL BILATon 91-24-4067ZR RENAL BILATMRN: [id number] Patient Name: JUHI COPE STUDY: US RENAL BILAT; 04/14/2021 1:14 pm INDICATION: Recurrent UTI. COMPARISON: None. ACCESSION NUMBER(S): [id number] ORDERING CLINICIAN: TERI CHAU TECHNIQUE: Multiple images [...] ultrasound. Electronically signed by: GENEVIEVE CAR STUPIN, MDClarion Hospital Office Visit (Urology)on 71-47-8255Rzvmwa-up visitDiagnoses/Problems Assessed Recurrent UTI (599.0) (N39.0) Orders Recurrent UTI Start: Nitrofurantoin Monohyd Macro 100 MG Oral Capsule; TAKE 1 CAPSULE Other Please take one capsule after sexual intercourse to prevent UTI Rx By: Teri Chau; Dispense: 30 Days ; #:30 Capsule; Refill: 11;For: Recurrent UTI; ROSY = N; Verified Transmission to [facility] Ultrasound Kidney Bilateral; Status:Hold For - Scheduling; Requested for:35Joj3855; Perform:[facility]; Due:70Bxt5766; Last Updated By:Isela Terrazas; 04/01/2021 9:16:17 AM;Ordered; [...] UTI; ROSY = N; [place] [address] Provider Impressions 26 year old female with history of endometriosis presents today via telehealth as a new patient forevaluation of recurrent UTIs. She reports getting UTIs at least once per month, noting occasional nocturia. Symptoms include burning, frequency, and back pain. She states that some UTIs are related to sexual intercourse but most are not. Patient reports she saw Dr. Booth at [facility] in [place], noting she was only treated with medications and urethral dilation for a supposed stricture.Denies gross hematuria. Patient is a non-smoker. Urine culture from [facility] on 03/04/21 was positive for [...] NPV - recurrent UTI History of Present Lqgyutd53 year old female with history of endometriosis presents today via telehealth as a new patient for evaluation of recurrent UTIs. She reports getting UTIs at least once per month, noting occasional nocturia. Symptoms include burning, frequency, and back pain. She states that some UTIs are related to sexual intercourse but most are not. Patient reports she saw Dr. Booth at [facility] in [place], noting she was only treated with medications [...] content not included)...NormalUH TouchworksNM GASTRIC EMPTYING SOLIDon 80-25-1115HB GASTRIC EMPTYING SOLID* * *Final Report* * * DATE OF EXAM: Nov 05 2020 12:26PM [facility] 0017 - NM GASTRIC EMPTYING SOLID [...] 4 HOURS IS CONSISTENT WITH MILD GASTROPARESIS. Leather Etcher: PSCB Transcribe Date/Time: Nov 05 2020 1:09P Dictated by : SIDDHARTH PEREA MD This examination was interpreted and the report reviewed and electronically signed by: SIDDHARTH PEREA MD on Nov 05 2020 1:24PM EST [id number] Ford Macomb HospitalANES POSTPROC EVALon 99-70-9609KJTU POSTPROC EVALHNO ID: [id number] Author: Austin Story Service: ? Author Type: [...] Recommendation: continue current plan of care. SIGNATURE: uAstin Story MD PATIENT NAME: Juhi Cope DATE: October 25, 2020 TIME: 2:52 PM CSN: [id number] HospitalANES PRE-OPon 44-03-0320FWJW PRE-OPHNO ID: [id number] Author: Austin Story Service: ? Author Type: [...] October 25, 2020 TIME: 1:08 PM CSN: [id number] [facility]rest [facility] PATHOLOGYon 10-25-2020 SURGICAL PATHOLOGYSpecimen originated from [facility] Specimen #: [id number] Submitting Physician: MALCOLM CRUZ MD FINAL DIAGNOSIS 1. Small bowel, biopsy (A) - Small bowel mucosa with no pathologic diagnostic abnormality; negative for celiac disease, granulomas and dysplasia. 2. Stomach, biopsy (B) - Gastric oxyntic-type mucosa with no pathologic diagnostic abnormality; see comment. /[facility] 10/26/2020 COMMENT 2. No microorganisms [...] in one cassette. Gross examination performed at [facility], [address] [place] [address] 10/25/2020 7:59:40 PM Date of Report: 10/26/2020 Date of Procedure: 10/25/2020 Date of Receipt: 10/25/2020 Submitted by: MALCOLM CRUZ MD Location: AVEN Diagnostic interpretation performed at [facility], [address] [place] [address]. [place] Number: [id number] Clinic Reference LabComment on above:Performed By: #### S #### See report for performing lab information.SURGICAL PATHOLOGYSpecimen originated from [facility] Specimen #: [id number] Submitting Physician: MALCOLM CRUZ MD FINAL DIAGNOSIS 1. Small bowel, biopsy (A) - Small bowel mucosa with no pathologic diagnostic abnormality; negative for celiac disease, granulomas and dysplasia. 2. Stomach, biopsy (B) - Gastric oxyntic-type mucosa with no pathologic diagnostic abnormality; see comment. /[facility] 10/26/2020 COMMENT 2. No microorganisms [...] in one cassette. Gross examination performed at [facility], [address] [place] [address] EJL 10/25/2020 7:59:40 PM Date of Report: 10/26/2020 Date of Procedure: 10/25/2020 Date of Receipt: 10/25/2020 Submitted by: MALCOLM CRUZ MD Location: AV[place] Diagnostic interpretation performed at [facility], [address] [place] [address]. [place] Number: [id number] Horizons Medical Center/ GROUP TESTon 59-59-7066YSE Newton Medical CenterComment on above: Performed By: #### VERAB #### [facility] [address] [place], [place] [address]HT TYPEPositiveBaton Rouge General Medical CenterComment on above: Performed By: #### VERAB #### [facility] [address] [place], [place] [address]Mcbmh Surgical Pathology Departmenton 82-62-9751Xhrjp Surgical Pathology DepartmentName JUHI COPE Pathologist: ASHLEY HURTADO MD Date of Procedure: 09/01/2020 Date Received: 09/01/2020 Date Reported 09/03/2020 Submitting Physician: CHARLENE RODRIGUEZ D.O. Location: [facility] External # FINAL DIAGNOSIS A. LEFT [...] D. Right pelvic sidewall peritoneum are 2 abvq-abf-dvo, irregular fragments of tissue measuring 1.3 x [...] amisha/09/02/2020 [facility] Department of Pathology [address] [place], [place] [address]TvxuqmOCSt. Luke's HospitalComment on above:Performed By: #### [facility] [place] #### [place] Surgical Pathology Department [address] [facility] [address]Wycbzqx and Physical - Surgery > 30 dayson 80-07-5792Ubpbvlq and Physical - Surgery > 30 daysHistory [...] T&S: O+, COVID-19: negative OB Hx: None. Home Supervisor Hx: As above. PMHx: endometriosis Surg Hx: diagnostic laparoscopy, appendectomy (2016) Meds: Meloxicam, Noxubee-Linyah, Norethindrone acetate Social Hx: No tobacco, no [...] the note. I personally evaluated the patient [id number]-Ugx-6883 Attending Provider Inpatient Certification StatementObservation patient/other outpatient visits Electronic Signatures: Charlene Rodriguez () (Signed 01-Sep-2020 10:04) Authored: Note Completion Co-Signer: History of Present Illness, Home Medication Review, Impression/Procedure, ERAS, Physical Exam, Consent, Note Completion Chelsie Leal ( (Resident)) (Signed 31-Aug-2020 15:44) Authored: History of Present Illness, Home Medication Review, Impression/Procedure, ERAS, Physical Exam, Consent, Note Completion Last Updated: 01-Sep-2020 10:04 by Charlene Rodriguez ()B[facility] General Medical CenterHomegoing Instructionson 97-54-4125Bwrzfyhqo InstructionsAdditional Instructions: Handouts Given: Topic 1Anesthesia Homegoing Instructions Topic 2Surgical Site Infection Handout Topic 3New Medication Education Topic 4Suggamedex handout Electronic Signatures: Aminata Gomez (DIALLO) (Signed 01-Sep-2020 16:07) Authored: Additional Instructions Last Updated: 01-Sep-2020 16:07 by Aminata Gomez (DIALLO)[facility] Rouge General Medical CenterPatient Profile - Preop v2on 39-87-8815Vikbnuz Profile - Preop q5Oqpczpa: Initial Info: How to be Addressedalexis Spoken Language PreferredEnglish Are you currently using the Personal Electronic Health Record or i-marker Stated Reason for Admissionseeing if my endometriosis is back Primary Contact Name and Numberlogan [phone] Patient Belongingsclothing locker glasses with bf Medications Brought to Hospitalno General Health: Weight in kg55.6 kilogram(s) Weight in ofe178.5 pound(s) Weight Methodactual (measured) Scale Typestanding Height [...] Arrangementshouse Lives Withparent(s) Resource/Environmental Concernsnone Anticipated Transition [place] Services Anticipated at Transitionnone Substance: Current or [...] Learning Preferencesverbal instruction Cultural Considerationsnone Developmental Considerationsnone Worship Considerationsnone Other learner availableno Falls RiskPatient location auto qualifies him/her for HIGH RISK. Are there any cultural, spiritual, gnosticist practices/values/needs that are important for us to [...] Physical - Surgery > 30 days 01-Sep-2020 03:42B[facility] General Medical CenterPreop Checkliston 52-59-4354Jdaqa Checklist Preop Checklist: Preop Checklist: Arrival Kwug99-Fzr-7328 Arrival Time12:30 Procedure Typelaparoscopic endometriosis excision NPO Vkcugz91-Dmi-4981 00:00 ID Band Onyes Allergy Bandno known [...] Last Updated: 01-Sep-2020 12:35 by Sierra Kraft (RN)[facility] Medical CenterANTIBODY IDENT.on 64-13-9935PRNCQBQJ IDENT.SEE BELOWNormSt. Luke's HospitalComment on above:Result Comment: NO CLINICALLY SIGNIFICANT ANTIBODIES IDENTIFIED.Performed By: #### ABID #### [facility] [address] [place], [place] [address]GGGbc 15-85-2601Dystnoyrmih distribution width (RBC) [Ratio] 12.1 %Minafa33.5 - 14.5Summit Oaks HospitalComment on above:Performed By: #### CBC #### [facility] [address] [place], [place] [id number] (Bld) [Volume fraction]39.6 %Tjasvf53.0 - 46.0Summit Oaks HospitalComment on above:Performed By: #### CBC #### [facility] [address] [place], [place] [address]Iefedzfzei (Bld) [Mass/Vol]12.6 g/hBDkzgom04.0 - 16.0Summit Oaks HospitalComment on above:Performed By: #### CBC #### [address] [id number] (RBC) [Mass/Vol]31.8 g/dLLow32.0 - 36.0Summit Oaks HospitalComment on above:Performed By: #### CBC #### [address] [id number] (RBC) [Entitic vol]90 sCJsjvxz86 - 100Summit Oaks HospitalComment on above:Performed By: #### CBC #### [address] [id number] (Bld) [#/Vol]333 10*3/vWRojusm717 - 450Summit Oaks HospitalComment on above:Performed By: #### CBC #### [address] [id number] x10E12/LNormal4.00 - 5.20[facility] Comment on above:Performed By: #### CBC #### [address] [id number] (Bld) [#/Vol]5.6 10*3/uLNormal4.4 - 11.3Summit Oaks HospitalComment on above:Performed By: #### CBC #### [address] [id number] 2019, SCREEN ASYMPTOMATICon 09-23-0766CLLS-CoV-2 (COVID-19) RNA TENA+probe Ql (Unsp spec)Not detectedNormalNot DetectedSummit Oaks HospitalComment on above:Result Comment: This assay is [...] patient management decisions. Fact sheet for providers: https://www.fda.gov/media/628014/download Fact sheet for patients: https://www.fda.gov/media/245668/download This test has received FDA Emergency Use Authorization (EUA) and has been verified by [facility] ([facility]). This test is only authorized for the duration of time that circumstances exist to justify the authorization of the emergency use of in vitro diagnostic tests for the detection of SARS-CoV-2 virus and/or diagnosis of COVID-19 infection under section 564(b)(1) of the Act, 21 U.S.C. 360bbb-3(b)(1), unless the authorization is terminated or revoked sooner. [facility] is certified under CLIA-88 as qualified to perform high complexity testing. Testing is performed in the [facility] laboratories located at [address] [place] [address].Performed By: #### COVSC #### [place], [place] [address]Lab Specimen SourceNasal, NasopharyngealNoCommunity HospitalComment on above:Performed By: #### COVSC #### [place], [place] [address]TYPE + SCREENon 61-76-0405EKA WVUMEDICINE BARNESVILLE HOSPITALONoNorth Carolina Specialty HospitalComment on above:Performed By: #### T+S #### [facility] [address] [place], [place] [address]AR TYPEPositiveBaton Rouge General Medical CenterComment on above: Performed By: #### T+S #### [facility] [address] [place], [place] [address]CET TYPECanceledNorth Memorial Health HospitalComment on above:Order Comment: TEST TYPE + SCREEN WAS CANCELLED, 08/30/2020 13:37 JOP. Performed By: #### T+S #### [facility] [address] [place], [place] [address]KM TYPECanceledNormMontrose Memorial HospitalComment on above:Order Comment: TEST TYPE + SCREEN WAS CANCELLED, 08/30/2020 13:37 JOP. Performed By: #### T+S #### [facility] [address] [place], [place] [address]NCJZpa 69-24-3175FESBVidolbu:Juhi Cope MRN: Height:5' 2 (1.575 m) Weight:120 [...] for the following basenames: K,HCT Progress Notes ([facility] REJ AV4): Jaquelin Wesley Ma 10/19/2020 2:35 [...] 1 10 oz. Bottle of Magnesium Citrate (Lemon/Ramona) ? A test for COVID 19 test [...] toast without seeds (not multigrain); pretzels; waffles, Yakut toast and pancakes; white rice, noodles, pasta, macaroni, peeled cooked potatoes; Special K, Rice Krispies or [place] Flakes cereals; ripe bananas; melons (except watermelon [...] carbonated beverages such as chi aislinn or lemon-inupiat soda; Gatorade? or other sports drinks (not [...] make sure you have a responsible adult driver utility worker to take you home after procedure. Due to having sedation, you may not drive the rest of the day. ? If you need to reschedule, please call [phone] ?Date/Provider Dr Cruz Procedure:colonoscpy Facility:[facility] Prep ordered( if aware):miralax Knowledge of prep instructions:posted to [facility] Diabetic:no Blood Thinners:no Pacemaker with defibrillator:no left message for patient to return call. Nurse triage please give below message. PLEASE READ PATIENT INSTRUCTIONS BELOW. THANK YOU.[facility] on [id number] ID: [id number] Author: Leon Perkins (Rt) Fito Blanchard Service: Radiology Author Type: Lead Shipper Type: Progress Notes Filed: 07/29/2020 11:06 AM [...] BY: RT Daya July 29, 2020 11:01 [facility] LouisvilleXR ABD 2V SUPINE W UPR/DECUB/CTLon 44-52-9382HF ABD 2V SUPINE W UPR/DECUB/CTL* * *Final [...] structures are normal. No other significant abnormality. Leather Etcher: DAVID Transcribe Date/Time: Jul 29 2020 11:19A Dictated by : LALI ORNELAS MD This examination was interpreted and the report reviewed and electronically signed by: LALI ORNELAS MD on Jul 29 2020 11:19AM EST [id number]_[facility] Vital Signs Date TimeVital SignValuePerforming DuwfbzapdEzucoxzu14-79-1152 15:04-0500Body mass index (BMI) [Ratio]30.36 kg/q0Axcnt Kiesha DO Work Phone: [phone] [place], [place] [address]Bilbddhsph13-44-9580 15:04-0500Body kyelps09.3 kg Nathan Kiesha DO Work Phone: [phone] [address]-05-2025 15:04-0500Diastolic blood awtdesiq67 mm[Hg]Nathan Kiesha DO Work Phone: [phone] [place], [place] [address]Nrctmvaxcq83-99-2730 15:04-0500Systolic blood dwukabxa647 mm[Hg]Nathan Kiesha DO Work Phone: [phone] [place], [place] 6172310-22-2025 16:04-0400Body mass index (BMI) [Ratio]29.78 kg/z2Jgizr Kiesha DO Work Phone: [phone] [place], [place] [address]Rfprpydphw42-07-6182 16:04-0400Body .85 kgCorey Kiesah DO Work Phone: [phone] [place], [place] [address]Ugccpskbgk67-47-2399 16:04-0400Diastolic blood ffnaxwqs77 mm[Hg]Nathan Kiesha DO Work Phone: [phone] [place], [place] [address]Diixkpwees64-05-6471 16:04-0400Systolic blood ltuqnwth315 mm[Hg]Nathan Kiesha DO Work Phone: [phone] [address]-16-2025 10:34-0400Body mass index (BMI) [Ratio]29.26 kg/m2YtvqvhecMadhuri Monroy MD Work Phone: p[facility]10-16-2025 10:34-0400Body xdabtp89.58 kgMadhuri Monroy MD Work Phone: [phone] [place], [place] 544[address]10-16-2025 10:34-0400Diastolic blood mm[Hg]Madhuri Monroy MD Work Phone: [phone] [place], [place] [address]10-16-2025 10:34-0400Systolic blood dappyhwu485 mm[Hg]Madhuri Monroy MD Work Phone: [phone] [place], [place] [address]03310-10-2025 14:48-0400Body smwvuv003.5 cmMine Denise MD Work Phone: [phone] [place], [place] 1903310-10-2025 14:48-0400Body mass index (BMI) [Ratio]29.04 kg/d0NtvkgoMine Denise MD Work Phone: [phone])[address] [place], [place] 1903310-10-2025 14:48-0400Body hjyoig17.03 kgMine Denise MD Work Phone: [phone])[address] [place], [place] 1903310-10-2025 14:48-0400Diastolic blood yrcrdnpu03 mm[Hg]Mine Denise MD Work Phone: 1(419)[address] [place], [place] 1903310-10-2025 14:48-0400Heart rate 104 /minMine Denise MD Work Phone: [phone])[address] [place], [place] 1903310-10-2025 14:48-0400Systolic blood mm[Hg]Mine Denise MD Work Phone: [phone])[address] [place], [place] 1903310-09-2025 15:54-0400Body mass index (BMI) [Ratio]29.41 kg/d8SzywwwiuSteph Keane TEACHER EMOTIONALLY IMPAIRED Work Phone: [phone] [place], [place] [address]Btqoxgmkod39-43-3959 15:54-0400Body spbjys80.94 kgSteph Keane TEACHER EMOTIONALLY IMPAIRED Work Phone: [phone] HospitalTqvmwioedt22-26-1017 15:54-0400Diastolic blood yarecnlc55 mm[Hg]Steph Kenae TEACHER EMOTIONALLY IMPAIRED Work Phone: [phone])173-[facility] HospitalMkzesfynhc00-04-5175 15:54-0400Systolic blood mm[Hg]Steph Keane TEACHER EMOTIONALLY IMPAIRED Work Phone: [facility] HospitalHbclkrczpg16-21-2881 15:37-0400Body mass index (BMI) [Ratio]29.23 kg/m9KsvpzqwtSteph Keane TEACHER EMOTIONALLY IMPAIRED Work Phone: [facility] HospitalWivlciecnf18-89-4588 15:37-0400Body yuxnzk49.48 kgSteph Rickettserly TEACHER EMOTIONALLY IMPAIRED Work Phone: [facility] HospitalRmhbonpnum91-40-9235 15:37-0400Diastolic blood zyyooatv41 mm[Hg]Steph Keane TEACHER EMOTIONALLY IMPAIRED Work Phone: [facility] HospitalMxxswmjutp36-69-4747 15:37-0400Systolic blood mm[Hg]Steph Rickettserly TEACHER EMOTIONALLY IMPAIRED Work Phone: [facility] HospitalSetdefvqre53-03-0412 15:55-0400Body mass index (BMI) [Ratio]29.45 kg/v1QxajonTeena Sarmiento RN Work Phone: [phone] [place], [place] 5449409-29-2025 15:55-0400Body cywhfj08.03 kgTeena Sarmiento RN Work Phone: [phone] [place], [place] 3813909-17-2025 14:32-0400Body mass index (BMI) [Ratio]27.82 kg/b3Gmrto Kiesha DO Work Phone: [facility] HospitalHnqwehzwel86-95-4989 14:32-0400Body qewrvz20 kg Nathan Kiesha DO Work Phone: [facility] HospitalCjvwigqazs49-61-1520 14:32-0400Diastolic blood htlqonse19 mm[Hg]Nathan Kiesha DO Work Phone: [place] [address]Oxlubhfmwt60-64-3362 14:32-0400Systolic blood tvztojiu323 mm[Hg]Nathan Kiesha DO Work Phone: [facility] HospitalGhjrozjpfc38-97-0019 15:36-0400Body xkxofj675.5 cmGeorge Kageovanian DO Work Phone: NOUniversity of [facility] Children's HospitalFkowtxcrdw88-41-4524 15:36-0400Body mass index (BMI) [Ratio]27.62 kg/k9Mmzrcksherita Beltran DO Work Phone: CIUniversity of [facility] Children's HospitalLwiyewrtsr77-73-7525 15:36-0400Body temperature 97.11 [degF]Eliceo Beltran DO Work Phone: NOUniversity of [facility] Children's HospitalVhxqjhorpv89-41-8486 15:36-0400Body .49 kgGeorsherita Beltran DO Work Phone: EYUniversity of Missouri Children's HospitalRsmjjxvwjz49-61-0233 15:36-0400Diastolic blood mm[Hg]Eliceo Beltran DO Work Phone: KSUniversity of Missouri Children's HospitalNooqjxtnru55-21-4818 15:36-0400Heart rate97 /min Eliceo Beltran DO Work Phone: [facility] HospitalWrpqfddzhq74-61-0244 15:36-4160NlL5% (BldA) [Mass fraction]98 %Eliceo Beltran DO Work Phone: TCUniversity of Missouri Children's HospitalZpnnlrbjzz75-81-0861 15:36-0400Systolic blood lraykadx872 mm[Hg]Eliceo Beltran DO Work Phone: [facility] HospitalAcxfafdsrd60-82-9933 15:42-0400Body mass index (BMI) [Ratio]26.48 kg/q1Qriga Fazio DO Work Phone: [facility] HospitalMwgsrufnnp69-45-2155 15:42-0400Body tjmarl44.68 kgCorepearl Cabrerao DO Work Phone: [facility] HospitalXwkpvdxljc33-47-5022 15:42-0400Diastolic blood mm[Hg]Nathan Cabrerao DO Work Phone: [facility] HospitalSukvbwjxot15-29-9113 15:42-0400Systolic blood mm[Hg]Nathanpearl Cabrerao DO Work Phone: [facility] HospitalFiekglwacy17-53-5396 14:33-0400Body mass index (BMI) [Ratio]26.73 kg/h2Sxgkp Kiesha DO Work Phone: [facility] HospitalMhzseyhmhj12-89-9443 14:33-0400Body vyqmqe60.28 kgCorey Kiesha DO Work Phone: [facility] HospitalMdswicwlfx33-26-3060 14:33-0400Diastolic blood afrkeghi93 mm[Hg]Nathan Kiesha DO Work Phone: 1([phone] [place], [place] [address]Tmcgnuijiv74-07-1950 14:33-0400Systolic blood jspxxyyj019 mm[Hg]Nathan Kiesha DO Work Phone: 1(218)048-[address] [place], [place] [address]Jyrnwmjzed99-70-8290 14:45-0400Body mass index (BMI) [Ratio]25.24 kg/b8Rekmg Kiesha DO Work Phone: 1(610)112-[address] [place], [place] [address]Gjazygdnmq99-08-6700 14:45-0400Body atkynb63.6 kg Nathan Kiesha DO Work Phone: 1(661)198-[address] [place], [place] [address]Ttdpirolsq13-21-3960 14:45-0400Diastolic blood zymcmmyz37 mm[Hg]Nathan Kiesha DO Work Phone: 1(288)260-[address] [place], [place] [address]Khqpekayce85-74-2536 14:45-0400Systolic blood mm[Hg]Nathan Kiesha DO Work Phone: [phone] [place], [place] [address]Hdlivantjg91-60-0074 10:29-0400Body mass index (BMI) [Ratio]25.68 kg/m2[facility]06-06-2025 10:29-0400Body .69 kgPers[facility] Hospital02-24-2025 15:08-0500Body mass index (BMI) [Ratio]25.99 kg/r7Kzcds Kiesha DO Work Phone: 1(406)676-[address] [place], [place] [address]Bvhkbrqkvt45-63-8997 15:08-0500Body oquxqu16.47 kgCorey Kiesha DO Work Phone: 1(597)492-[address] [place], [place] [address]Ujvnfhetod67-03-2723 15:08-0500Diastolic blood jhvvbqeu49 mm[Hg]Nathan Kiesha DO Work Phone: 1(013)283-[address] [place], [place] [address]Whbdtdgghn62-62-6894 15:08-0500Systolic blood wncxeato876 mm[Hg]Nathan Kiesha DO Work Phone: 1(567)512-[address] [place], [place] [address]Ybelaaojhr09-81-2498 15:53-0500Body shaefe307.5 cmGemartha Beltran DO Work Phone: noUniversity of Missouri Children's HospitalZocznbxqzz53-73-7790 15:53-0500Body mass index (BMI) [Ratio]25.61 kg/r5Wqpojemartha Beltran DO Work Phone: noUniversity of Missouri Children's HospitalLgwumcojxs46-39-1340 15:53-0500Body temperature 97.11 [degF]Eliceo Beltran DO Work Phone: noUniversity of [facility] Children's HospitalKjpboqnvld57-41-5324 15:53-0500Body .5 kg Eliceo Beltran DO Work Phone: noUniversity of [facility]'s HospitalXnnbjxzgzu20-74-1129 15:53-0500Diastolic blood yrdppqed93 mm[Hg]Eliceo Beltran DO Work Phone: noUniversity of Missouri Children's HospitalWybzsraaul95-27-5054 15:53-0500Heart rate51 /min Eliceo Beltran DO Work Phone: noUniversity of [facility] Children's HospitalCxjqzhhizu79-98-2753 15:53-6611BjC0% (BldA) [Mass fraction]98 %Eliceo Beltran DO Work Phone: noUniversity of Missouri Children's HospitalEmrqxcmele89-84-6986 15:53-0500Systolic blood mm[Hg]Eliceo Beltran DO Work Phone: noUniversity of Missouri Children's HospitalEaugurwkxw47-93-1388 11:15-0400Body mass index (BMI) [Ratio]25.97 kg/s4Ctwas Fazio DO Work Phone: [facility] HospitalQwsmklbvnu63-71-7654 11:15-0400Body jwizdt26.41 kgNathan Pop DO Work Phone: NOUniversity of Missouri Children's HospitalTikzshawgo10-79-6004 11:15-0400Diastolic blood bbanouqb10 mm[Hg]Nathan Pop DO Work Phone: [facility] HospitalFycmkzivqo45-76-4841 11:15-0400Systolic blood fecchrde462 mm[Hg]Nathan Pop DO Work Phone: noUniversity of Missouri Children's HospitalTsupjcrzbi93-33-4060 10:02-0400Body mass index (BMI) [Ratio]25.39 kg/o3Fqwpt Kiesha DO Work Phone: 1(876)872-[address] [place], [place] [address]Sjgkrycftq11-31-3121 10:02-0400Body zpjewh97.96 kgCorey Kiesha DO Work Phone: 1(014)[facility] [place], [place] [address]Jaltbrftgj02-44-3864 10:02-0400Diastolic blood mm[Hg]Nathan Kiesha DO Work Phone: [phone] [place], [place] [address]Utvzelwwhi59-78-2291 10:02-0400Systolic blood jfggwxdo760 mm[Hg]Nathan Kiesha DO Work Phone: 1(122)[facility] [place], [place] [address]Oyuwiqdrdi45-24-6614 10:55-0500Body mass index (BMI) [Ratio]28.17 kg/r9Btcne Kiesha DO Work Phone: 1(074)[facility] [place], [place] [address]Uvhocvtium69-16-8632 10:55-0500Body xkvoid94.85 kgCorey Kiesha DO Work Phone: 1(025)[facility] [place], [place] [address]Kyzmkqgqju40-89-2231 10:55-0500Diastolic blood bxptsdye44 mm[Hg]Nathan Kiesha DO Work Phone: 1(574)[facility] [place], [place] [address]Nywsjxkkdb19-98-6224 10:55-0500Systolic blood mm[Hg]Nathan Kiesha DO Work Phone: 1(929)[facility] [place], [place] [address]Zwbozaehjq30-95-1341 17:31-0400Body temperature 98.96 [degF][facility]10-18-2023 17:31-0400 Diastolic blood xelfobls05 mm[Hg][facility]10-18-2023 17:31-2018AQB7 99 %[facility]10-18-2023 17:31-0400Heart ucoa517 /min[facility]10-18-2023 17:31-0400 Respiratory rate16 /min[facility]10-18-2023 17:31-0400 Systolic blood vspounpj380 mm[Hg][facility]06-06-2023 10:55-0400Body ruvqtx676.5 cmErin Reaper MEDICAL RECORDS TECHNICIAN.BUSINESS MAIL ENTRY CLERK Work Phone: [phone] Pysrwk62-99-8911 10:55-0400Body rybbko62.86 kgErin Reaper MEDICAL RECORDS TECHNICIAN.BUSINESS MAIL ENTRY CLERK Work Phone: [phone] Fiqdie17-55-6633 10:55-0400Diastolic blood tncunmfp09 mm[Hg]Jihan Reaper MEDICAL RECORDS TECHNICIAN.BUSINESS MAIL ENTRY CLERK Work Phone: [phone] Ejkaom20-26-0422 10:55-0400Systolic blood lftuxvxf792 mm[Hg]Jihan Reaper MEDICAL RECORDS TECHNICIAN.BUSINESS MAIL ENTRY CLERK Work Phone: [place] Sxpdqb97-54-2107 19:18-0500Diastolic blood apvsbaip65 mm[Hg][facility]03-08-2023 19:18-0500Heart rate98 /min[facility]03-08-2023 19:18-0500Nursing Progress Note ReasonOther: this RN discharged pt. pt verbalizes understanding and denies questiosn prior to discharge.[facility]03-08-2023 19:18-0500Respiratory rate16 /min[facility]03-08-2023 19:18-3890MnE8% (BldA) [Mass fraction]100 %[facility]03-08-2023 19:18-0500 Systolic blood ithwdqts688 mm[Hg][facility] 01-31-2023 18:00-0500Diastolic blood lyeifpyl49 mm[Hg][facility]03-08-2023 18:00-0500Heart kuza934 /minOhio[facility]03-08-2023 18:00-0500Mean blood yztmxddc082 mm[Hg][facility]03-08-2023 18:00-7120KtS8% (BldA) [Mass fraction]99 %[facility]03-08-2023 18:00-0500 Systolic blood ukqagmur608 mm[Hg][facility] 01-31-2023 17:00-0500Diastolic blood mm[Hg][facility]03-08-2023 17:00-0500Mean blood frbntoxm819 mm[Hg][facility]03-08-2023 17:00-0500Systolic blood pressure 117 mm[Hg][facility]03-08-2023 16:38-0500Heart jsuv992 /minOhio[facility]03-08-2023 16:38-0500Mean blood fbilqjhq129 mm[Hg][facility]03-08-2023 16:38-0500Respiratory rate18 /[facility] 01-31-2023 13:49-0500Body sphvnadtmag08.88 [degF][facility]03-08-2023 13:49-0500Heart fcio285 /min[facility]02-04-2023 14:55-0500Body aksdwqplwwn25.88 [degF][facility]02-04-2023 14:55-0500Diastolic blood dxiyjspj04 mm[Hg][facility]02-04-2023 14:55-0500Heart rate84 /min[facility]02-04-2023 14:55-0500Mean blood uundksfb728 mm[Hg][facility]02-04-2023 14:55-0500Respiratory rate20 /min[facility]02-04-2023 14:55-1053YnY3% (BldA) [Mass fraction]98 %[facility]02-04-2023 14:55-0500Systolic blood pressure 137 mm[Hg][facility]02-04-2023 14:35-0500Body trazebtehkw49.88 [degF][facility]02-04-2023 14:35-0500Diastolic blood rgykgksq12 mm[Hg][facility]02-04-2023 14:35-0500Heart rate82 /minOhio[facility]02-04-2023 14:35-0500Mean blood gddilrsl89 mm[Hg][facility]02-04-2023 14:35-0500Respiratory rate16 /min[facility]02-04-2023 14:35-5381BiD7% (BldA) [Mass fraction]97 %[facility]02-04-2023 14:35-0500Systolic blood wibgxpxp044 mm[Hg][facility]02-04-2023 13:35-0500Body kxtxofnbued73.88 [degF][facility]02-04-2023 13:35-0500Diastolic blood njlhnikd16 mm[Hg][facility]02-04-2023 13:35-0500Heart rate80 /min[facility]02-04-2023 13:35-0500Mean blood eycwrdcs28 mm[Hg] [facility]02-04-2023 13:35-0500Respiratory rate 17 /minOhio[facility]02-04-2023 13:35-0987NiX6% (BldA) [Mass fraction]96 %[facility]02-04-2023 13:35-0500Systolic blood cnnuegcm985 mm[Hg][facility]02-04-2023 13:00-0500Respiratory rate12 /min[facility]02-04-2023 12:55-0500Respiratory rate9 /min[facility]02-04-2023 12:50-0500Respiratory rate10 /min[facility]02-04-2023 08:15-0500Body kksrgfviqpd01.24 [degF] [facility]02-04-2023 08:15-0500Heart cutz448 /min[facility]01-07-2023 13:41-0500Body hzopdcvzmir98.2 [degF]Kathe Ryder DO Work Phone: 1(884)519-[address] [place], [place] [address]Vqlcis92-98-5223 13:41-0500Diastolic blood mm[Hg]Kathe Ryder DO Work Phone: [facility]0698 13:41-0500Heart yqhg821 /min Kathe Ryder DO Work Phone: [phone] DaytonWpjwxf26-20-2803 13:41-0500Respiratory rate18 /minKathe Ryder DO Work Phone: [facility] DaytonYthngu84-23-0200 13:41-1856JwK5% (BldA) [Mass fraction]99 %Kathe Ryder DO Work Phone: [facility] DaytonLdstfe57-79-2482 13:41-0500Systolic blood xjfyasgf621 mm[Hg]Kathe Ryder DO Work Phone: [facility] DaytonTcvgaw62-55-0146 00:45-0500Body kxstou206.5 cm Kathe Ryder DO Work Phone: [facility] DaytonLcbduf27-59-1102 00:45-0500Body mass index (BMI) [Ratio]25.61 kg/w6GonhwasuiKathe Ryder DO Work Phone: [facility] DaytonPxwezc63-97-6181 00:45-0500Body .5 kg Kathe Ryder DO Work Phone: [facility] DaytonMgkcdu11-90-8351 22:26-0500Hourly Rounding Fredi KARASIK [address] [place], [place] [address]Comment on above:Result Comment: ensured that all pt belongings are sent with pt. pt has no questions or concerns. report given to EMS. pt stable and no s/s of distress. pt off unit to wsdaziwm18-35-5511 22:00-0500Diastolic blood vvqmztiu17 mm[Hg]Fredi KARASIK [address] [place], [place] 5531601-02-2023 22:00-0500Heart fxno904 /minGregory KARASIK [address] [place], [place] 5531601-02-2023 22:00-0500 Hourly RoundingGregory KARASIK [address] [place], [place] 5531601-02-2023 22:00-0500Mean blood lpccwnux027 mm[Hg]Fredi KARASIK [address] [place], [place] 5531601-02-2023 22:00-0500 Systolic blood pfswlmow859 mm[Hg]Fredi KARASIK [address] [place], [place] 5531601-02-2023 21:50-0500Blood Pressure LocationGregory KARASIK [address] [place], [place] 5531601-02-2023 21:50-0500 Diastolic blood crgiztyu18 mm[Hg]Fredi KARASIK [address] [place], [place] 5531601-02-2023 21:50-0500Heart rbvn540 /minGregory KARASIK [address] [place], [place] 5531601-02-2023 21:50-0500 Hourly RoundingGregory KARASIK [facility]01-02-2023 21:50-0500Mean blood dogaynim756 mm[Hg]Fredi SCHUMACHERASIK [address] [place], [place] 5531601-02-2023 21:50-0500 Respiratory rate18 /minFredi SCHUMACHERASIK [address] [place], [place] 5531601-02-2023 21:50-0944JsB8% (BldA) [Mass fraction]98 %Fredi SCHUMACHERASIK [address] [place], [place] 5531601-02-2023 21:50-0500 Systolic blood zmtyinuy974 mm[Hg]Fredi KARASIK [address] [place], [place] 5531601-02-2023 21:37-0500Blood Pressure LocationGregrosa ABREUK [address] [place], [place] 5531601-02-2023 21:37-0500 Diastolic blood edmgriga46 mm[Hg]Fredi SCHUMACHERASIK [address] [place], [place] 5531601-02-2023 21:37-0500Heart ycrv970 /minFredi ABREUK [address] [place], [place] 5531601-02-2023 21:37-0500Mean blood ehqabgvy550 mm[Hg]Fredi SCHUMACHERASIK [address] [place], [place] 5531601-02-2023 21:37-3245RpL0% (BldA) [Mass fraction]97 %Fredi SCHUMACHERASIK [address] [place], [place] 5531601-02-2023 21:37-0500 Systolic blood wcjnlxxo298 mm[Hg]Fredi KARASIK [address] [place], [place] 5531601-02-2023 21:30-0500Blood Pressure LocationFredi SCHUMACHERASIK [address] [place], [place] 5531601-02-2023 21:30-0500Body zxiprfpkhwb45.6 [degF]Fredi DORSEY [facility]01-02-2023 19:00-0500Body xeifhksacyb48.24 [degF]Fredi DORSEY [facility]01-02-2023 17:15-0500Body xzsbsznymoh14.06 [degF]Fredi DORSEY [facility]01-02-2023 14:02-0500Heart rate99 /minFredi DORSEY [facility]08-19-2022 07:00-0400Body uzfgsppqspw57.6 [degF]Kaylinn Dokken [address]08-19-2022 07:00-0400 Diastolic blood ezemartc39 mm[Hg]Kaylinn Dokken [address]08-19-2022 07:00-0400Heart rate80 /minKaylinn Dokken [address] [place], [place] 9781208-19-2022 07:00-0400Mean blood uziangud64 mm[Hg]Kaylinn Dokken [address] [place], [place] 9781208-19-2022 07:00-0400 Respiratory rate17 /minKaylinn Dokken [address]08-19-2022 07:00-0400 Systolic blood ljviwzhr824 mm[Hg]Kaylinn Dokken [address] [place], [place] 9781208-19-2022 06:07-0400Body nghjzgznceu61.24 [degF]Kaylinn Dokken [address]08-19-2022 06:07-0400 Diastolic blood mm[Hg]Kaylinn Dokken [address] [place], [place] 9781208-19-2022 06:07-0400Heart rate90 /minCharlotteylinn Dokken [address]08-19-2022 06:07-0400 Respiratory rate18 /minCharlotteylinn Dokken [address] [place], [place] 9781208-19-2022 06:07-2087NjE0% (BldA) [Mass fraction]100 %Kumar Villagomez [address]08-19-2022 06:07-0400 Systolic blood rvfoiigt473 mm[Hg]Beatrisn Yulyen [address] [place], [place] 9781208-19-2022 05:30-0400 Hourly RoundingCorey KIESHA [address] [place], [place] [address]Comment on above:Result Comment: Pt discharged per physician orders. Pt ambulates off unit with a steady msgm10-85-6194 05:15-0400Diastolic blood caglguiz64 mm[Hg]Nathan KIESHA [address] [place], [place] 5531608-19-2022 05:15-0400Heart xgvh986 /minCorey KIESHA [address] [place], [place] 5531608-19-2022 05:15-0400 Hourly RoundingCorey KIESHA [address] [place], [place] 5531608-19-2022 05:15-0400Mean blood tdrhfnve84 mm[Hg]Nathan KIESHA [address] [place], [place] 5531608-19-2022 05:15-0400 Respiratory rate18 /minCorey KIESHA [address] [place], [place] 5531608-19-2022 05:15-0400 Systolic blood mm[Hg]Nathan KIESHA [address] [place], [place] 5531605-24-2022 11:00-0400Body qdxemi713.02 cmCameron Edward Other nort [employer] Other 05-24-2022 11:00-0400Body mass index (BMI) [Ratio] 23.03 kg/z4Vztqigc [facility] Other [facility] [place] [employer] Other 05-24-2022 11:00-0400Body fjsmok64.97 kgCamerojunior Loratty Other [facility] [place] [employer] Other 03-17-2022 11:41-0400Body .48 cmMegan Billow DO Work Phone: [phone]-NVQKA[address] Work Phone: [phone] 11:41-0400Body mass index (BMI) [Ratio] 24.51 kg/d0Cuqnl Billow DO Work Phone: DD-FYCSK[address] Work Phone: [phone] 11:41-0400Body surface area Derived from formula1.61 i5Umvmc Billow DO Work Phone: IH-YVSNX[address] Work Phone: [phone] 11:41-0400Body tfloau76.78 kgMegan Billow DO Work Phone: DF-LXIXL[address] Work Phone: 1([phone] 11:41-0400Diastolic blood sghyttjq74 mm[Hg] Charlene Billow DO Work Phone: GY-WTUWM[address] Work Phone: [phone] 11:41-0400Systolic blood jekozonx509 mm[Hg] Charlene Billow DO Work Phone: KV-YZWAQ[address] Work Phone: [phone] 11:41-04219 1Megan Billow DO Work Phone: BB-VGIWX[address] Work Phone: Comment on above:XOXTZCLHEqakBwqrf11-10-9258 14:53-0400Body jpmoav860.48 cmMegan Billow DO Work Phone: JG-YIVIA[address] Work Phone: [phone] 14:53-0400Body mass index (BMI) [Ratio] 21.77 kg/y2Lrwrm Billow DO Work Phone: VU-IQDOJ[address] Work Phone: [phone] 14:53-0400Body surface area Derived from formula1.53 n7Sqhtg Billow DO Work Phone: XL-JIYCT[address] Work Phone: 1([phone] 14:53-0400Body qavrhi97.98 kgMegan Billow DO Work Phone: EJ-YWJIV[address] Work Phone: [phone] 14:53-0400Diastolic blood gjfguiyf21 mm[Hg] Chalrene Billow DO Work Phone: BX-SQSAE[address] Work Phone: [phone] 14:53-0400Heart jzks727 /minMegan Billow DO Work Phone: TI-ZAYHW[address] Work Phone: [phone] 14:53-0400Systolic blood etncqgmp021 mm[Hg] Charlene Billow DO Work Phone: NZ-WHCCN[address] Work Phone: [phone] 14:53-57555 1Megan Billow DO Work Phone: CK-LUUXL[address] Work Phone: Comment on above:GRAVPARAPainScale Encounters Encounter DateEncounter TypeCare ProviderFacilityStart: 10-06-2025 End: 14-83-2229Ykfcks outpatient visit 25 minutesColleen E Matthias CLAYTON Work Phone: [phone]-Lkidm [facility] at [facility] Comment on above:Insulin controlled gestational diabetes mellitus (GDM) in third trimester (Primary Dx); Essential hypertension affecting in third trimesterStart: 10-06-2025 End: 92-38-8195ntrgcnxkcsNZKJDVP E MATTHIASProMedica Protestant Hospitaltart: 10-05-2025 End: 61-69-2345Bhufamnsq encounterAnjana Davalos RNMaternal- Medicine at [facility]art: 10-03-2025 End: 51-52-1457Ohxypmlyh Result EncounterSteph Keane NP Work Phone: noms External Department UnsolicitedStart: 10-03-2025 End: 31-16-1913Piotcxkdv Result EncounterSteph Keane NP Work Phone: noms External Department UnsolicitedStart: 09-30-2025 End: 92-48-3544Ateogcdf flow sheetCorey Kiesha DO Work Phone: noms [facility]atti OBGYNComment on above:Third trimester ([facility] 31 weeks gestation of ([facility]); Pre-eclampsia in third trimester ([facility])Start: 09-30-2025 End: 27-05-2319mwvrdayzolOVMIV FAZIONot AvailableStart: 09-30-2025 End: 41-16-7861Kqnsuz flowsheetCorey Kiesha DO Work Phone: noMS [place] OBGYNStart: 09-30-2025 End: 26-24-1079Ggrdsk flowsheetCorey Kiesha DO Work Phone: NOM[facility] Patti OBGYNStart: 09-28-2025 End: 19-65-3790Szcbzt OnlyChivo Springer PA-C Work Phone: [phone]-Jngum Medicine at [facility] Comment on above:Essential hypertension affecting in third trimester Start: 09-26-2025 End: 68-98-3286Lmfcqfplt Result EncounterSteph Keane NP Work Phone: noms External Department UnsolicitedStart: 09-26-2025 End: 07-13-3076Eqhtfjpkb Result EncounterSteph Keane NP Work Phone: noms External Department UnsolicitedStart: 09-21-2025 End: 19-90-8358lsokczhtqrTldyiji E Lavoy PA-C Work Phone: [phone]-Uosgh Medicine at [facility] Comment on above:Insulin controlled gestational diabetes mellitus (GDM) in third trimester (Primary Dx); Essential hypertension affecting in third trimesterStart: 09-21-2025 End: 96-68-0179Xefdbbdpz encounterVerito EDOUARD Work Phone: [phone]-Cgsuf Medicine at [facility] Start: 09-19-2025 End: 68-28-7577Jmhemuinu Result EncounterSteph Keane NP Work Phone: noms External Department UnsolicitedStart: 09-19-2025 End: 84-31-9708Ynwfxnonr Result EncounterSteph Keane NP Work Phone: noms External Department UnsolicitedStart: 09-17-2025 End: 16-38-6512Bmilqk Breanna CAGE Work Phone: [phone]-Wjezf Medicine at [facility] Comment on above:Essential hypertension affecting in third trimester Start: 09-16-2025 End: 18-24-2444ukpohaymqpVPVGP FAZIONot AvailableStart: 09-16-2025 End: 72-74-6377Qqzhjuas flow sheetCorey Kiesha DO Work Phone: noms Patti OBGYNComment on above:29 weeks gestation of ([facility]); Third trimester ([facility]); Hypertension affecting , antepartum ([facility]); Gestational diabetes mellitus (GDM), antepartum, gestational diabetes method of control unspecified([facility])Start: 09-16-2025 End: 44-62-9744Fbkiib flowsheetCorey Kiesha DO Work Phone: NOMS [place] OBGYNStart: 09-16-2025 End: 30-80-7569Gmmpxf flowsheetCorey Kiesha DO Work Phone: [facility] [place] OBGYNStart: 09-16-2025 End: 98-16-7403Vcjxvrvio Nirmal Harris [facility]: 09-15-2025 End: 00-00-0119LnostoMika Springer PA-C Work Phone: [phone]-Fbuie Medicine at [facility] Comment on above:Essential hypertension affecting in third trimester Start: 09-10-2025 End: 15-41-8189Erzbtg outpatient visit 25 minutesMadhuri Monroy MD Work Phone: [facility] Medicine [place]Comment on above: 28 weeks gestation of (Primary Dx); Insulin controlled gestational diabetes mellitus (GDM) in second trimester; Essential hypertension affecting in third trimesterStart: 09-10-2025 End: 52-91-0484yhrohkgccvCFRAQGLI P DOCHEVAWilson [facility] Start: 09-04-2025 End: 55-60-6309Jcumvi consultation new/estab patient 60 Annalee Denise MD Work Phone: [phone]-Gxiwa Medicine at [facility] Comment on above:Diet controlled gestational diabetes mellitus (GDM) in second trimester (Primary Dx); Essential hypertension affecting in third trimesterStart: 09-04-2025 End: 92-21-2120agffwokvfhHUIKFWNona McSub[facility] Hospitaltart: 09-03-2025 End: 67-97-3023Shobwhhl flow sheetSteph Keane TEACHER EMOTIONALLY IMPAIRED Work Phone: NOQD Patti OBGYNComment on above:Hypertension affecting , antepartum ([facility]) (Primary Dx); 27 weeks gestation of ([facility]); Second trimester ([facility])Start: 09-03-2025 End: 05-06-5297eqxwqxfpzkTTKBBNPH EBERLYNot AvailableStart: 09-03-2025 End: 32-37-7205Jqcfqa flowsheetSteph Keane TEACHER EMOTIONALLY IMPAIRED Work Phone: [facility] [place] OBGYNStart: 09-03-2025 End: 62-79-4268Eiutwmxrh Result EncounterCorey Kiesha DO Work Phone: noms External Department UnsolicitedStart: 09-03-2025 End: 99-95-9548Dbogsrmfr Result EncounterCorey Kiesha DO Work Phone: noms External Department UnsolicitedStart: 09-01-2025 End: 94-54-8643Tjzfkcows encounterCha Harris RNMaternal- Medicine at [facility] Systemtart: 08-29-2025 End: 48-52-0310Kgllpsznj Result EncounterSteph Keane NP Work Phone: noms External Department UnsolicitedStart: 08-29-2025 End: 55-75-7063Kdkcagxze Result EncounterSteph Keane NP Work Phone: noms External Department UnsolicitedStart: 08-27-2025 End: 26-67-2455xpzpjcfsxtGOMDZYXM EBERLYNot AvailableStart: 08-27-2025 End: 84-33-2041Mdmsogjm flow sheetSteph Keane TEACHER EMOTIONALLY IMPAIRED Work Phone: NOMS Patti OBGYNComment on above:26 weeks gestation of ([facility]); Second trimester ([facility]); induced hypertension, antepartum ([facility]-HCC); Gestational diabetes mellitus (GDM) in second trimester, gestational diabetes method of control unspecified ([facility])Start: 08-27-2025 End: 91-72-2420Qkjyea flowsheetSteph Elsa TEACHER EMOTIONALLY IMPAIRED Work Phone: NOAW Patti OBGYNStart: 08-27-2025 End: 80-38-0811Ijycsv flowsheetSteph Keane TEACHER EMOTIONALLY IMPAIRED Work Phone: NONA Patti OBGYNStart: 08-27-2025 End: 22-02-3352Oaoztjcff Result EncounterSteph Keane TEACHER EMOTIONALLY IMPAIRED Work Phone: noms External Department UnsolicitedStart: 08-25-2025 End: 78-68-6844Pabqbxcho Result EncounterGeneric External Data ProviderNOMS External Department UnsolicitedStart: 08-25-2025 End: 16-77-0101Pwutaruco Result EncounterGeneric External Data ProviderNOMS External Department UnsolicitedStart: 08-24-2025 End: 91-38-1114prsjikhxkdWeflin M Frey RN Work Phone: [phone]-Wycma Medicine at [facility] Comment on above:Gestational diabetes mellitus (GDM) in second trimester, gestational diabetes method of control unspecifiedStart: 08-21-2025 End: 74-24-2681Seevt abstractingScanning Provider ExternalMaternal- Medicine at [facility] Systemtart: 08-18-2025 End: 26-83-6006Yorwm Aura Monroy MD Work Phone: [phone]-Dknus Medicine at [facility] Start: 08-15-2025 End: 35-24-0375rwnrcdpehdDCJGNMZZ EBERLYFacility:FTMCStart: 08-12-2025 End: 08-59-9632Jdthpzfv flow sheetCorey Kiesha DO Work Phone: noms [place] OBGYNComment on above:24 weeks gestation of ([facility]); Second trimester ([facility]); Elevated glucose tolerance testStart: 08-12-2025 End: 19-01-2731djjaiurlspMCQIZ FAZIONot AvailableStart: 08-12-2025 End: 50-59-8674lsygxwqcyaLmkwd Bryant MANISHAOFacility:FTMCStart: 08-01-2025 End: 26-51-4468mrxtpiqmkgI KENNETH BELTRANFacility:FTMCStart: 07-30-2025 End: 41-63-5318Wgdklty encounter statusGemartha Hurtado Ruby DO Work Phone: [facility] Work Phone: Start: 07-30-2025 End: 56-19-0441Vhdfwlvl preventive med est patient 18-39 yrsGeorsherita Hurtado Charlottecarol DO Work Phone: noms [facility] 230Comment on above: Wellness examination (Primary Dx); Hypertension, unspecified type ; Lipid screeningStart: 07-30-2025 End: 65-01-7697irtezqhpydUDIAOL R KAFTANNot AvailableStart: 07-30-2025 End: 50-88-6065Ilgmsh flowsheetEliceo Hurtado Ruby DO Work Phone: noms [facility] 230Start: 07-30-2025 End: 31-51-1216Pjllhr flowsreynoldEliceo Hurtado Ruby DO Work Phone: noms [facility] 230Start: 07-15-2025 End: 14-90-4365Qewcpeiz flow sheetCorey Kiesha DO Work Phone: NOSM [place] OBGYNComment on above:20 weeks gestation of ([facility]); Second trimester ([facility]); Diabetes mellitus screeningStart: 07-15-2025 End: 56-91-5291ekiylurmhpHPGTY FAZIONot AvailableStart: 07-15-2025 End: 38-76-4532Djicyqjcs Result EncounterCorey Kiesha DO Work Phone: NOYZ External Department UnsolicitedStart: 07-15-2025 End: 76-56-0125Ydtpbywxw Result EncounterCorey Kiesha DO Work Phone: NOMS External Department UnsolicitedStart: 06-22-2025 End: 20-72-7133Wleejjzu flow sheetCorey Kiesha DO Work Phone: NOXL [place] OBGYNComment on above:Sinusitis, unspecified chronicity, unspecified location (Primary Dx); Second trimester ([facility]); 17 weeks gestation of ([facility]); Screening, , for anatomic survey ([facility])Start: 06-22-2025 End: 02-06-2865skylafhpxnNJAFI FAZIONot AvailableStart: 06-22-2025 End: 23-99-3430Tnyftp flowsheetCorey Kiesha DO Work Phone: NOAI [place] OBGYNStart: 06-22-2025 End: 71-90-8149Zctbfn flowsheetCorey Kiesha DO Work Phone: NOUD Patti OBGYNStart: 06-22-2025 End: 06-88-8232Melidnmm Result EncounterCorey Kiesha DO Work Phone: NOXE External Department UnsolicitedStart: 05-25-2025 End: 24-83-1536embrvjmvluBMJVU FAZIONot AvailableStart: 05-25-2025 End: 70-95-2949Vlpjlqzn flow sheetCorey Kiesha DO Work Phone: NOBE BCP OBComment on above:Nonintractable episodic headache, unspecified headache type (Primary Dx); Second trimester ([facility]); 13 weeks gestation of ([facility])Start: 05-25-2025 End: 36-56-9103Fmdref flowsheetCorey Kiesha DO Work Phone: NOMS BCP OBStart: 05-25-2025 End: 07-64-9711Upfcxh flowsheetCorey Kiesha DO Work Phone: NOMS BCP OBStart: 05-04-2025 End: 61-36-3265Zygktegqd Result EncounterCorey Kiesha DO Work Phone: NOMS External Department UnsolicitedStart: 05-04-2025 End: 27-33-1816Xxpzxxhwg Result EncounterCorey Kiesha DO Work Phone: noms External Department UnsolicitedStart: 05-01-2025 End: 56-92-0716Dhauuxggg Result EncounterCorey Kiesha DO Work Phone: noMS External Department UnsolicitedStart: 05-01-2025 End: 82-22-1022Wrnagevgc Result EncounterCorey Kiesha DO Work Phone: noms External Department UnsolicitedStart: 05-01-2025 End: 29-64-8367xbqbxgsjydYDZKNS Jose Angel AvailableStart: 05-01-2025 End: 99-02-2246Ahjiup outpatient visit 5 minutesNoms Bcp Ob Kiesha NurseNOMS BCP OBComment on above:GA: 9k7oEuere: 03-13-2025 End: 69-51-1780ruaeyhbdwuUxerf R FAZIOFacility:FTMCStart: 03-13-2025 End: 84-58-2872Vgrxhpw encounter procedureCorey R KIESHA [facility] Start: 02-02-2025 End: 15-11-5526Nudkaap encounter procedureDenny Rodríguez MD Work Phone: [facility] [place] Work Phone: Start: 02-02-2025 End: 70-91-3387tpkicztfqvYaent Baxter MD Work Phone: [facility] Work Phone: Start: 01-22-2025 End: 81-73-9690qlmgopxckyGjrwc R FAZIOFacility:FTMCStart: 01-22-2025 End: 63-60-3938Awsmlhf encounter procedureCorey R KIESHA [facility] Start: 01-19-2025 End: 54-57-2247Eyijoe outpatient visit 15 minutesCorey Kiesha DO Work Phone: noms BCP OBComment on above:Pain in female genitalia on intercourse; EndometriosisStart: 01-19-2025 End: 25-44-0967dxgxirtwrnFHAME FAZIONot AvailableStart: 01-19-2025 End: 12-49-8351Haewcd flowsheetCorey Kiesha DO Work Phone: NOMS BCP OBStart: 01-19-2025 End: 09-53-3461Vzhvyi flowsheetCorey Kiesha DO Work Phone: NOMS BCP OBStart: 12-30-2024 End: 90-84-6447uvbtpkvzofCGNNOM R TREYANNot AvailableStart: 12-30-2024 End: 45-63-8487Ppnfqa outpatient visit 15 minutesGeorge R Charlottecarol DO Work Phone: NONE [facility] 230Comment on above:Hypertension, unspecified type (CMS/HCC) (Primary Dx); Paroxysmal tachycardia, unspecified (CMS/HCC); Chronic right shoulder pain; Scapular dyskinesisStart: 08-18-2024 End: 45-71-2054Rmngbe flowsheetCorey Kiesha DO Work Phone: noMS BCP OBStart: 08-18-2024 End: 05-51-3191Nrzjzx flowsheetCorey Kiesha DO Work Phone: noMS BCP OBStart: 08-18-2024 End: 08-64-3865Rfjpidcpw Result EncounterCorey Kiesha DO Work Phone: noms External Department UnsolicitedStart: 08-18-2024 End: 55-82-3856Keuopmp encounter procedureCorey Kiesha DO Work Phone: [facility] Work Phone: Start: 08-18-2024 End: 30-63-5639Ukbnrdjy preventive med est patient 18-39 yrsCorey Kiesha DO Work Phone: NOMS BCP OBComment on above:Well woman exam with routine gynecological examStart: 07-22-2024 End: 84-62-4612Bzvhgo flowsheetCorey Kiesha DO Work Phone: NOMS BCP OBStart: 07-22-2024 End: 83-60-6558Plrvws flowsheetCorey Kiesha DO Work Phone: NOES BCP OBStart: 07-22-2024 End: 37-96-9066Mxnyrp outpatient visit 15 minutesCorey Kiesha DO Work Phone: NOMS BCP OBComment on above:Dysmenorrhea, unspecified Start: 47-35-9476Huhpyvund encounterMegan Billow DO Work Phone: [facility] Valleytart: 55-95-0871Kgcooxsdu encounterMegan Billow DO Work Phone: [facility] HospitalComment on above:Surgery CancelledStart: 02-13-2024 End: 41-95-8830Kbgtgftrx Result EncounterCorey Kiesha DO Work Phone: NOSE External Department UnsolicitedStart: 02-13-2024 End: 43-41-0396Vywineybv Result EncounterCorey Kiesha DO Work Phone: noms External Department UnsolicitedStart: 01-15-2024 End: 41-80-3155Gybpxpjiw Result EncounterCorey Kiesha DO Work Phone: noms External Department UnsolicitedStart: 01-15-2024 End: 33-00-5002Aimugonjn Result EncounterCorey Kiesha DO Work Phone: noms External Department UnsolicitedStart: 01-10-2024 End: 85-31-4078Zafxcg outpatient visit 15 minutesCorey Kiesha DO Work Phone: NOMS BCP OBComment on above:Menorrhagia with regular cycle; Pelvic pain in female; Uses controlStart: 00-94-1604SkndirAbvwq Billow DO Work Phone: [facility] HospitalComment on above:Refill Request Start: 95-81-5450nyullwfijdBujrx Billow DO Work Phone: Obstetrics/GynecologyComment on above:painStart: 12-10-2023 End: 79-05-8697txetgjxybrUVDKN BILLOWFacility:[facility] [address] Hospitaltart: 06-36-1074acosblesxgKoxuk Billow DO Work Phone: REM PIRES MCStart: 58-61-3253Xxkldsh encounter procedureMegan Billow DO Work Phone: Obstetrics/GynecologyComment on above:office visit Start: 09-12-2023 End: 42-10-4184Iibwmqgmy department patient Berny Loco [facility] Start: 91-67-8694Ynlktl pelvic examinationMegan Billow DO Work Phone: Obstetrics/GynecologyComment on above:Pelvic pain in female (Primary Dx)Start: 76-43-7380ejshhfzzmhKjchp Billow DO Work Phone: Obstetrics/GynecologyComment on above:painful periods Start: 08-24-2023 End: 60-21-3171Rkvbcr pelvic examinationErin Vicker MEDICAL RECORDS TECHNICIAN.BUSINESS MAIL ENTRY CLERK Work Phone: GynecologyComment on above:High-tone pelvic floor dysfunction (Primary Dx); Chronic pelvic pain in femaleStart: 08-24-2023 End: 31-70-9816Wgoxutopgkkl consultation with Kelton Downs APRN.BUSINESS MAIL ENTRY CLERK Work Phone: [facility] MAINStart: 08-24-2023 End: 01-58-6441ovlctzvbuaBSJX REAPERFacility:[facility] HospitalStart: 83-61-8610kdlewpgenzItoxu Billow DO Work Phone: Obstetrics/GynecologyComment on above:painful period Start: 35-51-3369Iagrpjpfz encounterMegan Billow DO Work Phone: GynecologyComment on above:Insurance Authorization (Orilissa)Start: 07-16-2023 End: 03-01-8376zycnuyhnmyNXMAR BILLOWFacility:[facility] [address] Hospitaltart: 06-12-2023 End: 80-02-2168nenltboswkDGRVC BILLOWFacility:[facility] [address] Hospitaltart: 06-12-2023 End: 32-48-8060Xcwywgmnqk hospital visit by physicianandra [facility] Suki (I-Stat/1.5t) RadiologyComment on above:Pelvic and perineal pain [R10.2]Start: 05-17-2023 End: 39-47-7698Fvcncz pelvic examinationMegan Billow DO Work Phone: Obstetrics/GynecologyComment on above:Endometriosis (Primary Dx); Pelvic and perineal painStart: 05-17-2023 End: 04-46-0531Nmjrpguuetol consultation with kikaCharlene Rodriguez DO Work Phone: Dre [facility]LETAWESTWOOD LODGE HOSPITALtart: 05-17-2023 End: 86-62-0898ikzthvmncaEKBPG ALAN BAXTERFacility:[facility] Start: 78-21-6862Efjplfgeb encounterMekevin Billfanny DO Work Phone: GynecologyComment on above:Vaginal BleedingStart: 05-01-2023 End: 30-18-1724mmhevblhgeMGKJTYang Stanleycility:[facility] Start: 05-01-2023 End: 67-62-7064Eccjvth encounter Lisa Downs APRN.BUSINESS MAIL ENTRY CLERK Work Phone: GynecologyComment on above:Chronic pelvic pain in female (Primary Dx); Constipation, unspecified constipation type; High-tone pelvic floor dysfunction; Diastasis of rectus abdominis; Dysmenorrhea; Other specified dyspareuniaStart: 12-36-7255kvjwvhajtbGzwtg Billow DO Work Phone: Obstetrics/GynecologyComment on above:painfulStart: 01-31-2023 End: 67-85-2204Mpxxdgfyk department patient visitAstrit Phuc [facility] Start: 12-30-2022 End: 63-78-8214Rxwdgum encounter procedureAstrit Phuc [facility] Start: 12-05-2022 End: 56-09-5761rjvixuutpdNZXPVirginia Mason Hospital SHSStart: 12-05-2022 End: 24-22-1728Hwjhzh outpatient visit 15 minutesGin Leonorsrinath DAY Work Phone: [facility] HomeComment on above:Pre- eclampsia, severe, delivered (Primary Dx)Start: 11-28-2022 End: 60-59-1094Jrorerbice and management of inpatientNemours Children's HospitalStart: 11-28-2022 End: 35-76-3378Jqzimzsvpp and management of inpatientSt. [facility] Work Phone: [facility] POSTPARTUMComment on above:Preeclampsia, severe, third trimester (Primary Dx)Start: 11-28-2022 End: 13-18-6877Qes-admission assessmentGregrosa DORSEY [facility] Start: 11-27-2022 End: 58-41-9381YU TriageGregrosa DORSEY [facility] Start: 07-14-2022 End: 15-93-7976Ihpgbjezx department patient visitCharlotteshayjunior Villagomez [facility] Start: 07-14-2022 End: 54-98-0702ZK TriageNathan POP [facility] Start: 04-25-2022 End: 46-27-1247Riixzag encounter procedureCAMERON DITTY [facility] Start: 04-18-2022 End: 10-94-3026dgdkxvhallWsyamoi Ditty Other [place] [employer] Other Start: 67-16-4814Mzpljjh encounter procedureCamdorene CarrilloyFPG GastroenterologyStart: 34-48-8483Ouagpj outpatient visit 15 minutes Charlene Rodriguez DO Work Phone: [phone]-PSJDS-[address] Work Phone: Start: 09-29-2021 End: 99-99-1000ndmonqyjdhNKCFI ROWENA [facility]pe[facility] HospitalStart: 09-29-2021 End: 89-80-5254vxxifbiiwyAYFBX ROWENAWayne HealthCare Main Campus HospitalStart: 24-67-6364HVSOLHxqay Billow DO Work Phone: [phone]-LKNKI-[address] Work Phone: Start: 99-43-2799GOQMHPTLIL, Provider: Charlene Rodriguez, Status: Pen, Time: 2:45 Ina Chau MD Work Phone: [phone]-Ldbtqpd-[place] Work Phone: Start: 70-02-9003Ovywd Oswaldo Chau MD Work Phone: [phone]-Lkgkrms-[place] Work Phone: Procedures DateProcedureProcedure DetailPerforming ClinicianStart: 86-49-0938DT OB BPP W NON-STRESSKristina Elsa TEACHER EMOTIONALLY IMPAIRED Work Phone: Start: 33-96-6040Hrzur dip stick/tablet rgnt non-auto w/o micrscpCorey Kiesha DO Work Phone: Start: 43-10-1082KP OB BPP W NON-STRESSKristina Elsa TEACHER EMOTIONALLY IMPAIRED Work Phone: Start: 79-38-1100NE OB BPP W NON-STRESSKristina Elsa TEACHER EMOTIONALLY IMPAIRED Work Phone: Start: 05-50-2372Cryar dip stick/tablet rgnt non-auto w/o micrscpCorey Kiesha DO Work Phone: Start: 38-26-2156KCR BUNCorey Kiesha DO Work Phone: Start: 56-15-2020BBG URIC ACIDCorey Kiesha DO Work Phone: Start: 16-49-9489BQZ ALTCorey Kiesha DO Work Phone: Start: 43-30-0743YNJ ASTCorey Kiesha DO Work Phone: Start: 51-61-0001QEZ CREATININECorey Kiesha DO Work Phone: Start: 60-53-3426FBH URINE T PROTEIN CREAT RATIOCorey Kiesha DO Work Phone: Start: 94-22-1598Rybfz dip stick/tablet rgnt non-auto w/o micrscpKristina Elsa TEACHER EMOTIONALLY IMPAIRED Work Phone: Start: 66-20-7293SBV TOTAL PROTEIN 24 HOUR URINE Generic External Data ProviderStart: 07-55-8679DP OB BPP W NON-STRESS Steph Elsa TEACHER EMOTIONALLY IMPAIRED Work Phone: Start: 12-48-7805TNL URINE T PROTEIN CREAT RATIO Generic External Data ProviderStart: 77-11-3541BCC CBC WITH AUTO DIFFGeneric External Data ProviderStart: 85-48-0802Iwiqd dip stick/tablet rgnt non-auto w/o micrscpKristina Elsa TEACHER EMOTIONALLY IMPAIRED Work Phone: Start: 86-15-8296Zhireuno identified in Urine by CultureGeneric External Data ProviderStart: 04-01-0096Dgfsrwe quantitative blood xcpt reagent stripNot In System Ref ProvStart: 67-56-9627QBPEBD HOUR GLUCOSE TOLERANCE 100 GM LOADNot In System Ref ProvStart: 42-73-2276Agytg dip stick/tablet rgnt non-auto w/o micrscpCorey Kiesha DO Work Phone: Start: 61-59-6331OEJ 1H POST 50G LOADNot In System Ref ProvStart: 97-34-5507VPP, SERUM, OPEN SPINA BIFIDACorey Kiesha DO Work Phone: Start: 09-39-7043Eausb dip stick/tablet rgnt non-auto w/o micrscpCorey Kiesha DO Work Phone: Start: 18-89-0410EENWIXEGT VAGINITIS (HTRX)Nathan Kiesha DO Work Phone: Start: 77-55-7049Fvxzn dip stick/tablet rgnt non-auto w/o micrscpCorey Kiesha DO Work Phone: Start: 27-03-8174Ujfdh dip stick/tablet rgnt non-auto w/o micrscpCorey Kiesha DO Work Phone: Start: 47-55-1348Jckfryqm screenMadhuri Monroy MD Work Phone: Start: 51-02-1293Rtms scrn 1+ class nonchromoNot In System Ref ProvStart: 18-60-4511Fdhhorhbbm glycosylated t6hTkhkr R Kiesha DO Work Phone: Start: 39-44-6537Lzihlugyv c antibodyNot In System Ref ProvStart: 44-17-5731UTL 1&2 AB/AG SCREEN (P24 AG)Not In System Ref ProvStart: 26-41-6694Wlsy ia hepatitis b surface antigenNot In System Ref ProvStart: 19-91-5917XTEQ AND SCREENNot In System Ref ProvStart: 87-05-4000GBQ TESTCorey Kiesha DO Work Phone: Start: 21-22-3555Ythrg dip stick/tablet rgnt non-auto w/o micrscpCorey Kiesha DO Work Phone: Start: 10-03-3520XE OB TRANSVAGINALCorey Kiesha DO Work Phone: Start: 94-18-1600RLZ,APTIMA HPV,AGE GDLNCorey Kiesha DO Work Phone: Start: 86-96-6512Xocdkhqxrfu observation [Identifier] in Cervix by Cyto stainCorey Kiesha DO Work Phone: Start: 90-07-5915GMW 12-LEADCorey Kiesha DO Work Phone: Start: 99-46-1436FB PELVIS W/ TRANSVAGINALCorey Kiesha DO Work Phone: Start: 07-84-8170Txws cerv/vag auto thin layer prep mnl screenCorey Kiesha DO Work Phone: Start: 06-03-8448Dtw pelvis w/o & w/contrast material Charlene Billow DO Work Phone: Start: 13-48-5524Ozdvj count platelet automatedMichael O'Cormier MEDICAL RECORDS TECHNICIAN - LINE MAINTENANCE TECHNICIAN Work Phone: Start: 00-79-5842Plbcm count platelet automatedCassie Constantino MD Work Phone: Start: 20-85-3762Zisnc streptococcus group b amplified probe tqCassie Constantino MD Work Phone: Start: 74-94-4039QRY and Rh group [Type] in Blood by Confirmatory Carmine Constantino MD Work Phone: Start: 57-76-1841Komkf typing serologic Cait Constantino MD Work Phone: Start: 46-69-6832Icckgzaejiray metabolic panelCassie Constantino MD Work Phone: Start: 57-83-2588Tdjlfkis hiv-1&hiv-2 single result Megadyne [id number]: 70-40-0241Aiqj ia hepatitis b surface antigenMegaalexis [phone]: 87-29-7019OjqrqnpjdfGRJDWEX EDWARD Start: 08-30-2020 End: 15-21-4934Luhmuevr screenComment on above:Performed By: #### T+S #### [facility] [address] [place], [place] [address]Trxhv Comment: TEST TYPE + SCREEN WAS CANCELLED, 08/30/2020 13:37 JOP.Performed By: #### T+S #### [facility] [address] [place], [place] [address]Oxrrg: 87-36-2876IJDPR SHOULDER OPEN DISTAL CLAVICLE EXCISION 1CAMERON LOVEApruve Comment on above:RIGHT SHOULDER OPEN DISTAL CLAVICLE EXCISIONRIGHT SHOULDER OPEN DISTAL CLAVICLE EXCISIONAppendectomyCAMERON LOVEApruve betamethasone (substance)Fredi WILLIAN comment on above:Dose #1: 11/27/22ColonoscopyCAMERON EDWARD Endoscope, device (physical object)[place]on [place]oco LaparoscopyTeri Chau MD Work Phone: Plan of Treatment DateCare ActivityDetailAuthorStart: 06-19-7260Ltapqo Vaccines (1 of 2)Zoster Vaccines (1 of 2)[facility]wood[facility] HealthStart: 59-32-4260Cjxkyfngd for malignant neoplasm of cervixNOMS HealthcareStart: 52-96-8993Zquzlgcjm for malignant neoplasm of cervixPap SmearNOMS HealthcareStart: 30-39-7609Wixlf BMI ScreeningAdult BMI ScreeningProFisher-Titus Medical Centerca Health SystemStart: 30-29-0738Azlfuxe ScreeningTobacco ScreeningProFisher-Titus Medical Centerca Health SystemStart: 15-87-7275Alfrl BMI ScreeningAdult BMI ScreeningProFisher-Titus Medical Centerca Health SystemStart: 21-25-5085Eckwl BMI ScreeningAdult BMI ScreeningProMedica Health SystemStart: 11-03-2025 End: 92-82-6831Lnqrqcr encounter /09/2025 2:30 PM EST Office Visit Maternal- Medicine at [facility] [address] [place] [phone] Chivo Springer PA-C [address] [facility] [address] [facility]: 10-14-2025 End: 51-85-9978Sjvpnjr encounter vvewctfza96/19/2025 3:30 PM EST Routine [facility] Patti YOUNGN [address] [facility] [address] [address] [place], [id number] Nathan Pop DO [address] [place] [address] NOMShalonda IYERGYNStart: 10-08-2025 End: 41-96-5482Betcglc encounter pzebukwrv75/13/2025 8:00 AM EST Appointment Maternal Medicine [facility] [address] [facility] [address] [place] [phone] Medicine RufusStart: 10-06-2025 End: 57-63-6335Zjfanbhewnnz consultation with tajrgzm0110/06/2025 2:30 PM EST Telemedicine Maternal- Medicine at [facility] [address] [place] [id number] Chivo Springer PA-C [address] [facility] [address] [address] [facility]-2025 End: 15-87-6477Itmsdmw encounter flrsbooyb89/10/2025 3:00 PM EST Office Visit Maternal- Medicine at [facility] [address] [place] [id number] Chivo Springer PA-C [address] [facility] [address] [address] [facility] 10-05-2025 End: [id number] consultation with qffqnkm2410/05/2025 3:00 PM EST Telemedicine Maternal- Medicine at [facility] [address] [place] [phone] Chivo Springer PA-C [address] [address] [facility] at [facility]: 29-78-9254CLV ( or age 60+ yrs) (1 - Risk 1-dose series)RSV ( or age 60+ yrs) (1 - Risk 1-dose series)[facility]: 09-30-2025 End: 33-31-7725Omspocq encounter procedureNOMS Patti YOUNGNComment on above: ArrivedStart: 09-16-2025 End: 73-96-9874GB biophysical profile w non stress testUS biophysical profile w non stress test Imaging Routine Gestational diabetes mellitus (GDM),antepartum, gestational diabetes method of control unspecified ([facility]) Expected: 09/16/2025, Expires: 09/16/2026NOMS HealthcareComment on above:Expected: 09/16/2025, Expires: 09/16/2026Start: 09-15-2025 End: 35-46-9196Kewexza encounter sqxmofioh68/21/2025 2:50 PM EDT Routine NOMShalonda MOODY [address] [place], [id number] Zenobia Gutierrez PA [address] [place] [address] NOMShalonda Izaguirrert: 09-10-2025 End: 17-96-1139Kdweqcammvbx consultation with zpljnkk8909/10/2025 11:00 AM EDT Telemedicine Maternal Medicine Rufus [address] [phone] Madhuri Monroy MD [address] [facility], [address] [place] [address] Maternal Medicine RufusStart: 09-10-2025 End: 02-20-0720Dhnkqhn encounter wdksaveuq05/16/2025 9:45 AM EDT Appointment Maternal Medicine [facility]uf[facility] [address] [phone] Medicine [facility]art: 09-07-2025 End: 47-43-9358Dyyuoqj encounter procedureNOMS BCP OBStart: 09-04-2025 End: 26-93-6659Rblceix encounter ehpqvmxdn17/10/2025 3:00 PM EDT Office Visit Maternal- Medicine at [facility] [address] [facility] [place] [phone] Mine Denise MD [address] [facility], [address] [place] [address] [facility]: 09-03-2025 End: 72-09-5833Ijnenoc encounter procedureNOMS [place] OBGYNComment on above: [facility]Start: 08-27-2025 End: 23-48-7249Mmmxvih encounter aqhboruly80/02/2025 3:20 PM EDT Routine NOMShalonda [place] OBGYN [address], [id number] Steph Keane NP [address] [place] [address] NOMS Patti Izaguirrert: 08-27-2025 End: 39-02-7845Wffbojk aminotransferase [Enzymatic activity/volume] in Serum or PlasmaALT Lab Routine induced hypertension, antepartum ([facility]-HCC) Expected: 08/27/2025 (Approximate), Expires: 08/27/2026[facility] HealthcareComment on above:Expected: 08/27/2025 (Approximate), Expires: 08/27/2026Start: 08-27-2025 End: 46-88-3035Vqpuscxmg aminotransferase [Enzymatic activity/volume] in Serum or PlasmaAST Lab Routine induced hypertension, antepartum (HHS-HCC) Expected: 08/27/2025 (Approximate), Expires: 08/27/2026[facility] HealthcareComment on above:Expected: 08/27/2025 (Approximate), Expires: 08/27/2026Start: 08-27-2025 End: 90-71-8505DMU W Auto Differential panel - BloodCBC and differential Lab Routine induced hypertension, antepartum ([facility]HS-HCC) Expected: 12/2024 (Approximate), Expires: 08/27/2026[facility] HealthcareComment on above: Expected: 08/27/2025 (Approximate), Expires: 08/27/2026art: 08-27-2025 End: 89-76-4873Rbrmexkiks [Mass/volume] in Serum or PlasmaCreatinine Lab Routine induced hypertension, antepartum ([facility]HS-HCC) Expected: 08/27/2025 (Ap proximate), Expires: 08/27/2026[facility] Healthcare Work Phone: comment on above:Expected: 08/27/2025 (Approximate), Expires: 08/27/2026Start: 08-27-2025 End: 90-98-8407Xqueaqc dehydrogenase [Enzymatic activity/volume] in Serum or Plasma by Lactate to pyruvate reactionLactate dehydrogenase Lab Routine induced hypertension, antepartum (HHS-HCC) Expected: 08/27/2025, Expires: 08/27/2026[facility] HealthcareComment on above:Expected: 08/27/2025, Expires: 08/27/2026Start: 08-27-2025 End: 48-03-3112Sbpvcyp, urine, 24 hourProtein, urine, 24 hour Lab Routine induced hypertension, antepartum (HHS-HCC) Expected: 08/27/2025 (Approximate), Expires: 08/27/2026[facility] HealthcareComment on above:Expected: 08/27/2025 (Approximate), Expires: 08/27/2026Start: 08-27-2025 End: 58-34-7702Bh and pttPt and ptt Lab Routine induced hypertension, antepartum ([facility]HS-HCC) Expected: 08/27/2025, Expires: 08/27/2026[facility] Comment on above:Expected: 08/27/2025, Expires: 08/27/2026Start: 08-27-2025 End: 89-77-5216Qkgcu [Mass/volume] in Serum or PlasmaUric acid Lab Routine induced hypertension, antepartum ([facility]HS-HCC) Expected: 08/27/2025 (Bouchra roximate), Expires: 08/27/2026[facility] HealthcareComment on above:Expected: 08/27/2025 (Approximate), Expires: 08/27/2026Start: 08-27-2025 End: 64-94-4734Rbdt nitrogen [Mass/volume] in Serum or PlasmaBUN Lab Routine induced hypertension, antepartum (HHS-HCC) Expected: 08/27/2025, Expires:08/27/2026[facility] HealthcareComment on above:Expected: 08/27/2025, Expires: 08/27/2026Start: 08-27-2025 End: 32-32-1718NM biophysical profile w non stress testUS biophysical profile w non stress test Imaging Routine induced hypertension, antepartum ([facility]) Gestational diabetes mellitus (GDM) in second trimester, gestational diabetes method of control unspecified ([facility]) Expected: 08/27/2025 (Approximate), Expires: 02/25/2026[facility] HealthcareComment on above:Expected: 08/27/2025 (Approximate), Expires: 02/25/2026Start: 08-24-2025 End: 50-32-0071mdxgnibjke89/29/2025 1:30 PM EDT Support Visit Maternal- Medicine at [facility] [address] [place] [facility] [phone] Teena Sarmiento, RN [address] [facility], [address] [place] [address] Kerline Augustin, RD [address] [facility], [address] [place] [address] [facility]: 08-24-2025 End: 20-68-6207Tuxtcik encounter ebqtrksio74/29/2025 11:00 AM EDT Office Visit NOMS BCP OB [address] [facility] [place] [place] [phone] Nathan Pop, DO [address] [place] [address] NOMS BCP OBStart: 08-12-2025 End: 81-04-6378Mwxikhp encounter oztsupmwb59/17/2025 2:40 PM EDT Routine NOMShalonda YOUNGN [address], [id number] Nathan Pop, DO [address] [place] [address] NOMShalonda [place] OBGYNStart: 08-12-2025 End: 25-47-8530Ngonqsrirkv of glucose 3 hours after glucose challenge for glucose tolerance testGlucose tolerance, 3 hours Lab Routine Elevated glucose tolerance test Expected: 08/12/2025 (Approximate), Expires: 08/12/2026[facility] Work Phone: comment on above:Expected: 08/12/2025 (Approximate), Expires: 08/12/2026Start: 08-12-2025 End: 68-82-9483Sinehcewxpzh / ancillary services kajzbeqiou98/17/2025 2:00 PM EDT Ancillary Procedure NOMS Patti YOUNGN [address] [place] [address] [place] [address] ZYJO Patti OBGYNStart: 07-31-2025 End: 83-78-0318WAC W Auto Differential panel - BloodCBC and differential Lab Routine Hypertension, unspecified type Wellness examination Expected: 07/31/2025 (Approximate), Expires: 08/29/2025[facility] Work Phone: Comment on above:Expected: 07/31/2025 (Approximate), Expires: 08/29/2025Start: 07-31-2025 End: 42-84-4997Jzhoiqkjydnqa metabolic 2000 panel - Serum or PlasmaComprehensive metabolic panel Lab Routine Hypertension, unspecified type Wellness examination Expected: 07/31/2025 (Approximate), Expires: 08/29/2025[facility] HealthcareComment on above:Expected: 07/31/2025 (Approximate), Expires: 08/29/2025Start: 07-31-2025 End: 16-29-9347Pcvsu 1996 panel - Serum or PlasmaLipid panel Lab Routine Wellness examination Lipid screening Expected: 07/31/2025 (Approximate), Exp ires: 08/29/2025[facility] HealthcareComment on above:Expected: 07/31/2025 (Approximate), Expires: 08/29/2025Start: 07-30-2025 End: 86-42-7400Dwyjgsm encounter jurayxaic77/04/2025 3:40 PM EDT Office Visit [facility] [address] [place] [address] Eliceo Beltran DO [address] [place] [address] [facility]rivedNOAt[facility] Health 230Comment on above:ArrivedStart: 95-15-0803MBQAQ-19 Vaccine ( season)COVID-19 Vaccine ( season)[facility] HealthcareStart: 07-27-2025 Influenza vaccinationNOAR HealthcareStart: 07-15-2025 End: 24-83-0968Wjetylf encounter ukyealjlr65/20/2025 3:30 PM EDT Routine NOMS Patti OBGYN [address] [facility] [address] [place], [id number] Nathan Pop, [address] [place] [address] NOMS Patti OBGYNStart: 07-15-2025 End: 42-10-7054Vllzfmkuobtn / ancillary services olghbynfkv40/20/2025 2:30 PM EDT Ancillary Procedure NOMS Patti OBGYN [address] [facility] [place] [phone] NOMS [place] OBGYNStart: 07-15-2025 End: 04-10-4642VOZ panel - Blood by Automated countCBC Lab Routine Diabetes mellitus screening Expected: 07/15/2025 (Approximate), Expires: 07/15/2026[facility] Work Phone: comment on above:Expected: 07/15/2025 (Approximate), Expires: 07/15/2026Start: 07-15-2025 End: 66-69-9699Kyadwzjiqhy of glucose 1 hour after glucose challenge for glucose tolerance testGlucose tolerance, 1 hour Lab Routine Diabetes mellitus screening Expected: 07/15/2025 (Approximate), Expires: 07/15/2026[facility] HealthcareComment on above:Expected: 07/15/2025 (Approximate), Expires: 07/15/2026Start: 06-22-2025 End: 67-00-4746Lroluag encounter xslrsrdti42/28/2025 2:10 PM EDT Routine NOMS Patti OBGYN [address] [facility] [address] [place], [id number] Nathan Pop, [address] [place] [address] ArrivedNOMS Patti OBGYNComment on above:ArrivedStart: 06-22-2025 End: 20-74-6506Knccv fetoprotein, maternalAlpha fetoprotein, maternal Lab Routine Second trimester ([facility]) 17 weeks gestation of ([facility]) Expected: 06/22/2025 (Approximate), Expires: 12/23/2025[facility] Comment on above:Expected: 06/22/2025 (Approximate), Expires: 12/23/2025Start: 06-22-2025 End: 49-44-4923NB for pregnancyUS OB 14+ weeks anatomy scan Imaging Routine Screening, , for anatomic survey ([facility]) Expected: 06/22/2025, Expires: 09/22/2025[facility] Work Phone: comment on above:Expected: 06/22/2025, Expires: 09/22/2025Start: 05-25-2025 End: 29-21-5281Aqcgemp encounter gstwbyoze51/30/2025 2:40 PM EDT Routine NOMS BCP OB [address] [facility] [place] [address] Nathan Pop, DO [address] [facility] [place] [address] NOMS BCP OBStart: 05-01-2025 End: 32-24-8108VWT/RhABO/Rh Lab Routine Missed menses , unspecified gestational age Expected: 05/01/2025 (Approximate), Expires: 05/01/2026[facility] HealthcareComment on above:Expected: 05/01/2025 (Approximate), Expires: 05/01/2026Start: 05-01-2025 End: 05-90-6303Gkhro type and Indirect antibody screen panel - BloodType and screen Lab Routine Missed menses , unspecified gestational age Expected: 05/01/2025 (Approximate), Expires: 05/01/2026[facility] Work Phone: comment on above:Expected: 05/01/2025 (Approximate), Expires: 05/01/2026Start: 05-01-2025 End: 32-55-6730Zwbju of abuse panel - Urine by Screen methodRapid drug screen, urine Lab Routine , unspecified gestational age Encounter for supervision of normal first in first trimester Expected: 05/01/2025 (Approximate), Expires: 05/01/2026N[facility] HealthcareComment on above:Expected: 05/01/2025 (Approximate), Expires: 05/01/2026Start: 01-19-2025 End: 65-21-3139Gbaavmr encounter procedureNOMS BCP OBComment on above:Arrived Start: 01-19-2025 End: 30-60-8823AmseytwopyjnArtnbfynbafd Lab Routine Pain in female genitalia on intercourse Endometriosis Expected: 01/19/2025(Approximate), Expires: 01/19/2026 [facility] Work Phone: comment on above:Expected: 01/19/2025 (Approximate), Expires: 01/19/2026Start: 08-18-2024 End: 67-59-3045Deylpwv encounter procedureNOMS BCP OBComment on above:Arrived Start: 32-43-4718Fliyelbcf vaccinationMemorial Health Systemtart: 07-22-2024 End: 50-68-4309RB for pregnancyUS PELVIS-TRANSVAG IF INDICATED Imaging Routine Dysmenorrhea, unspecified Expected: 07/22/2024 (Approximate), Expires: 07/22/2025[facility] Work Phone: comment on above:Expected: 07/22/2024 (Approximate), Expires: 07/22/2025Start: 06-23-2024 End: 79-43-0282Mtnpmlf encounter xbidndttu95/29/2024 10:30 AM EDT Office Visit Obstetrics/Gynecology [address] [address] Charlene Rodriguez DO [address] [place] [address] 2 WEEK POST OPObstetrics/GynecologyComment on above:2 WEEK POST OPStart: 05-27-2024 End: 78-00-4054Tjgoikmcu to same day surgery dqoolj4505/27/2024 7:30 AM EDT - 05/27/2024 9:30 AM EDT Surgery [facility] Surgery [address] [place] [address] Charlene Rodriguez, DO [address] [place] [address] LAPAROSCOPY FULGURATION OR EXCISION OF LESIONS OF THE OVARY PELVIC VISCERA OR PERITONEAL SURFACE BY ANY METHODWilson Memorial Hospital SurgeryComment on above:LAPAROSCOPY FULGURATION OR EXCISION OF LESIONS OF THE OVARY PELVIC VISCERA OR PERITONEAL SURFACE BYANY METHODStart: 05-27-2024 End: 21-56-2096Xnfw fulg/exc ovary viscera/peritoneal surfaceLAPAROSCOPY FULGURATION OR EXCISION OF LESIONS OF THE OVARY PELVIC VISCERA OR PERITONEAL SURFACE BYANY METHOD Endometriosis 05/27/2024 7:30 AM EDTME ORStart: 05-27-2024 Subsequent hospital visit by qzaeognst71/02/2024 7:30 AM EDT Hospital Encounter [facility] Surgery [address] [place] [address] Charlene Rodriguez, DO [address] [place] [address] [phone] (F ax) Endometriosis [N80.9][facility] SurgeryComment on above:Endometriosis [N80.9]Start: 60-81-4505Qzcuvwxki vaccinationInfluenza Vaccine (#1)[facility] HealthcareComment on above:Postponed from 07/27/2023 (Patient Refused)Start: 05-20-2024 End: 80-60-4996lxrnmesygm33/25/2024 10:00 AM EDT [facility] METAL WORKER UROL SALINA MOB [address] [address] [place], Uro Home Supervisor Nurse [address] [address] RN GLENNGYN UROL SALINA MOBComment on above:RN TEACHINGStart: 04-22-2024 End: 31-62-4087Rlkozzb encounter jqekvvmyr00/28/2024 9:00 AM EDT Office Visit NOMS [facility] [address] [place] [phone] Denny Rodríguez MD [address] [place] [address] NOMS SEP FMStart: 13-00-8839KSnD,Tdap and Td Vaccines (7 - Td or Tdap)DTaP,Tdap and Td Vaccines (7 - Td or Tdap)[facility] SystemStart: 03-33-0850WYgZ/Tdap/Td Vaccines (7 - Td or Tdap)DTaP/Tdap/Td Vaccines (7 - Td or Tdap)[facility]Start: 42-15-2411Krfbc microalbumin profileDTaP,Tdap,Td Vaccine (7 - Td or Tdap)[facility] Systemtart: 01-30-2024 End: 38-16-8574Sgqifkd encounter tjaqxvrvu27/06/2024 11:10 AM EST Consult NOMS [facility] OB [address] [facility] [place] [address] Nathan Pop DO [address] [place] [address] [facility]S [facility] OBStart: 01-15-2024 End: 71-32-6022Hjbroncwondk / ancillary services jikghporqv40/20/2024 8:00 AM EST Ancillary Procedure [facility] [address] [facility] [place] [address] NOMS [facility] OBStart: 01-10-2024 End: 13-43-0775WK for pregnancyUS PELVIS-TRANSVAG IF INDICATED Imaging Routine Pelvic pain in female Expected: 01/10/2024 (Approximate), Expires: 01/10/2025 [facility] Work Phone: comment on above:Expected: 01/10/2024 (Approximate), Expires: 01/10/2025Start: 67-68-6137Rhongcbloy Health ScreeningBehavioral Health ScreeningMemorial Health Systemtart: 95-65-1600Dymefhcnvc AssessmentDepression AssessmentCleGalion Hospitaltart: 65-06-9091Usqxh-19 Vaccine ( season) Covid-19 Vaccine ( season)[facility] Systemtart: 99-71-1348Qdutzliyn vaccinationMemorial Health Systemtart: 99-30-0424EOAENCDWID ASSESSMENTDEPRESSION ASSESSMENTMemorial Health Systemtart: 74-71-8192Dvwyhclqn vaccinationInfluenza Vaccine (#1)[facility] DaytonStart: 57-51-2974VEJ, Provider: Charlene Rodriguez, Status: Pen, Time: 1:30 PMFUV, Provider: Charlene Rodriguez, Status: Pen, Time: 1:30 PM NN-UJPHI-Jzygmn 320 Work Phone: Start: 06-50-4910EBI, Provider: Charlene Rodriguez, Status: Pen, Time: 11:15 AMFUV, Provider: Charlene Rodriguez, Status: Pen, Time: 11:15 AM XS-IPQQB-Foqgcz 320 Work Phone: Start: 59-91-6851GGS TESTINGPAP TESTINGMemorial Health Systemtart: 71-23-6128Vnfnqxmxg for malignant neoplasm of cervixMemorial Health Systemtart: 31-40-5853LSwE,Tdap and Td Vaccines (1 - Tdap)DTaP,Tdap and Td Vaccines (1 - Tdap)[facility]art: 52-80-4081JAxK/Tdap/Td Vaccines (1 - Tdap)DTaP/Tdap/Td Vaccines (1 - Tdap)[facility] DaytonStart: 07-41-1510Tvbii microalbumin profileMemorial Health Systemtart: 34-20-9135Yvhkf BMI Follow Up Plan Adult BMI Follow Up PlanHaywood Regional Medical Centertart: 63-54-8871Psatx BMI ScreeningAdult BMI ScreeningHaywood Regional Medical Centertart: 73-28-1690KYADFT PCP TEAM CHRONIC DISEASE VISITANNUAL PCP TEAM [facility]IT[facility] Start: 47-03-7057CO CONTROLLED (<130/80)BP CONTROLLED (<130/80)[facility] Start: 00-35-8818IZVLMDWHR C SCREENINGHEPATITIS C SCREENINGKn[facility] Community Hospital Start: 84-10-7693Mmzutlcus C screeningHepatitis C ScreeningKnox Community Hospital Start: 75-94-8397RAV SCREENINGHIV SCREENINGMemorial Health Systemtart: 83-97-1023CDJ screeningHIV ScreeningMemorial Health Systemtart: 67-07-4448Decmebb of varicella vaccinationVaricella Vaccines (1 of 2 - 13+ 2-dose series)[facility]Start: 26-99-8507Hychnewxqo ScreeningDepression ScreeningHaywood Regional Medical Centertart: 51-48-3558Znxpfsv ScreeningTobacco ScreeningHaywood Regional Medical Centertart: 66-34-8127Knhycjiev vaccinationVaricella Vaccines (1 of 2 - 2-dose childhood series)[facility] DaytonStart: 80-61-8965GGL Vaccines (1 of 1 - Standard series)MMR Vaccines (1 of 1 - Standard series)[facility] DaytonStart: 58-62-9841Dusgycfdr vaccinationVaricella Vaccines (1 of 2 - 2-dose childhood series)[facility] Start: 49-92-7298JECTT-19 VACCINE (#1)COVID-19 VACCINE (#1)[facility] Start: 55-94-9919MSRAPKZSZ B (1 of 3 - 3-dose series)HEPATITIS B (1 of 3 - 3- dose series)[facility] Systemtart: 05-01-7828Plthprvcw B Vaccine (1 of 3 - 3- dose series)Hepatitis B Vaccine (1 of 3 - 3-dose series)[facility] Systemtart: 63-94-8347Kqsszzgud B Vaccines (1 of 3 - 3-dose series)Hepatitis B Vaccines (1 of 3 - 3-dose series)[facility] DaytonStart: 66-40-7644Wcekx panelLipid PanelSumma HealthBacteria identified in Urine by CultureUrine culture Microbiology Routine Missed menses Ordered: 05/01/2025[facility] HealthcareComment on above:Ordered: 05/01/2025BC W Auto Differential panel - BloodCBC and differential Lab Routine Missed menses , unspecified gestational age Ordered: 05/01/2025[facility] HealthcareComment on above:Ordered: 05/01/2025ytology Cervical or vaginal smear or scraping studyPap Smear Pathology and Cytology Routine Well woman exam with routine gynecological exam Ordered: 08/18/2024[facility] Work Phone: comment on above:Ordered: 08/18/2024Hemoglobin A1c/Hemoglobin.total in BloodHemoglobin A1c Lab Routine Missed menses , unspecified gestational age Ordered: 05/01/2025[facility] HealthcareComment on above: Ordered: 05/01/2025Hepatitis B virus surface Ag [Presence] in Serum or Plasma by ImmunoassayHepatitis B surface antigen Lab Routine Missed menses , unspecified gestational age Ordered: 05/01/2025[facility] HealthcareComment on above: Ordered: 05/01/2025Hepatitis C virus Ab [Presence] in Serum or Plasma by ImmunoassayHepatitis C antibody Lab Routine Missed menses , unspecified gestational age Ordered: 05/01/2025[facility] HealthcareComment on above:Ordered: 05/01/2025HIV-1/HIV-2 antigen/antibody combination immunoassayHIV-1 and HIV-2 antibodies Lab Routine Missed menses , unspecified gestational age Ordered: 05/01/2025[facility] HealthcareComment on above:Ordered: 05/01/2025 End: 17-70-5764Ydh pelvis w/o & w/contrast materialMRI FEMALE PELVIS WO/W IVCON Radiology Routine Pelvic and perineal pain 1 Occurrences starting 05/17/2023 until [facility] Work Phone: Comment on above:1 Occurrences starting 05/17/2023 until 4Reagin Ab [Presence] in Serum by RPRRPR Lab Routine Missed menses , unspecified gestational age Ordered: 05/01/2025[facility] Comment on above:Ordered: 05/01/2025Rubella antibody, IgGRubella antibody, IgG Lab Routine Missed menses , unspecified gestational age Ordered: 04/2025[facility] HealthcareComment on above:Ordered: 05/01/2025 End: 01-00-6072[facility]insC[facility] Work Phone: Comment on above:Once (Lab) for 1 Occurrences starting 11/30/2022 until 11/30/2022, 1 completed End: 69-74-3624RJ for pregnancyUS OB follow up transabdominal approach Imaging Routine Gestational diabetes mellitus (GDM), antepartum, gestational diabetes method of control unspecified ([facility]) every 4 weeks for 2 Occurrences starting 09/16/2025 until 12/17/2025[facility] Work Phone: comment on above:every 4 weeks for 2 Occurrences starting 09/16/2025 until 6CK[facility] OR Immunizations Immunization DateImmunizationNotesCare VmavngvaTsfcqmoy66-83-0901kkypgfwhi A vaccine, adult dosageCorey Kiesha DO Work Phone: [facility] HospitalDzpdlvrjze80-13-0368cwqyu papilloma virus vaccine, quadrivalentCorey Kiesha DO Work Phone: [facility] HospitalZjxaikczgf51-85-4135vsxzsfbui, seasonal, injectable, preservative freeCorey Kiesha DO Work Phone: [facility] HospitalYmhplfgqaw93-53-3603mbjxnfcoh virus vaccine, unspecified formulationGina Moschella DO Work Phone: [facility] DaytonUadjdy97-64-6440zlejr papilloma virus vaccine, quadrivalentCorey Kiesha DO Work Phone: [facility] HospitalVedgtrdebd47-44-3867hffbzjiou A vaccine, adult dosageCorey Kiesha DO Work Phone: [facility] HospitalYaqmdorjax48-26-6340dcqkr papilloma virus vaccine, quadrivalentCorey Kiesha DO Work Phone: [facility] HospitalZbkmxfasld41-68-4674viqxrmz toxoid, reduced diphtheria toxoid, and acellular pertussis vaccine, adsorbedCorey Kiesha DO Work Phone: [facility] HospitalSuenzlrswd04-52-6643bqwtdnuxkblkt polysaccharide (groups A, C, Y and W-135) diphtheria toxoid conjugate vaccine (MCV4P)Nathan Kiesha DO Work Phone: [facility] HospitalEczlgccggn38-36-4642vjzkqliotb, tetanus toxoids and acellular pertussis vaccine, unspecified formulationCorey Kiesha DO Work Phone: [facility] HospitalSmexixhdvx34-19-7949afgpvdw, mumps and rubella virus vaccineCorey Kiesha DO Work Phone: [facility] HospitalFvfppbujsk57-78-9849lceqjhwicm vaccine, inactivatedCorey Kiesha DO Work Phone: [phone] HospitalUvdafjdyey23-83-6750adzkqdlywt, tetanus toxoids and acellular pertussis vaccine, unspecified formulationCorey Kiesha DO Work Phone: [phone] HospitalHpejjgwmpt54-88-7509VPM-Pcriwzayatf influenzae type b conjugate vaccineCorey Kiesha DO Work Phone: [phone] HospitalUpocdindkf43-05-9752dsaererlp B vaccine, pediatric or pediatric/adolescent dosageCorey Kiesha DO Work Phone: [phone] HospitalTqmyiydjew39-58-4259ihwhfkw, mumps and rubella virus vaccineCorey Kiesha DO Work Phone: [phone] [place], [place] [address]Myzitncium20-91-3629svfzyqfnb poliovirus vaccine, live, oralCorey Kiesha DO Work Phone: [phone] [place], [place] [address]Rptgacyfqb36-02-1511TLH-Rdtrmkyijcc influenzae type b conjugate vaccineCorey Kiesha DO Work Phone: [phone] [place], [place] [address]Tmhseygeuw05-08-8871oqopvtnrj B vaccine, pediatric or pediatric/adolescent dosageCorey Kiesha DO Work Phone: [phone] [place], [place] [address]Melvhigcev45-81-2694ijnycgoit poliovirus vaccine, live, oralCorey Kiesha DO Work Phone: [phone] [place], [place] [address]Sqyysuhguk01-58-2533BNH-Wfdctciozbp influenzae type b conjugate vaccineCorey Kiesha DO Work Phone: [phone] [place], [place] [address]Ihzomitkru19-35-3378udqqcnkgz B vaccine, pediatric or pediatric/adolescent dosageCorey Kiesha DO Work Phone: [phone] [place], [place] [address]Cykkfcdewr15-13-5084ghuzkxnkh poliovirus vaccine, live, oralCorey Kiesha DO Work Phone: [phone]-[facility] HealthcareNEGATED: Highlighted row has not occurred!86-01-6052crpenff, mumps and rubella virus vaccineKatcarlos Ryder DO Work Phone: [facility] HealthComment on above:Deferred: Other - Rubella ImmuneNEGATED: Highlighted row has not occurred!55-24-5388wbmkhoi toxoid, reduced diphtheria toxoid, and acellular pertussis vaccine, janetKathe Ryder DO Work Phone: [facility] DaytonComment on above:Deferred: No longer needed - Refused Tdap vaccine. Payers DatePayer CategoryPayerPolicy [id number] Managed Care - [facility] [id number] [facility] [id number] [id number] [id number]2387-94-3191Ednzqbn16-85-2589 [id number] Health Insurance [id number] [id number] Health [id number] 2..1.813214.3.579.2.174 [id number] 2..1.484081.3.57[id number] 2..1.069417.3.57[id number] 2..1.229047.3.57[id number] 2..1.675362.3.57[id number] 2..1.640123.3.579.[id number] 2..1.605435.3.579.2.06023-58-7813Lyjhclk05366930 2..1.980678.3.579.2.91750-96-2652Ghphyyt797905177 2.840.1.857896.3.57[id number] 2.0.1.509013.3.579.2.[id number] 2.840.1.386954.3.579.[id number] 2.0.1.655424.3.579.2.256346-34-9973Bjgemno91327109 2..1.695520.3.579.2.871947-75-2937Icvqbeq11011206 2.0.1.242037.3.57[id number] 2..1.525537.3.57[id number] 2..1.277492.3.579.2.942106-49-2828Kmppngz15696759 2..1.401605.3.579.2.540156-59-6651Blwfvqi58781055 2..1.710950.3.579.2.213687-67-8807Bllkcpe54992672 2..1.941152.3.579.2.789815-71-3641Xhskldt29203671 2.0.1.120226.3.57[id number] 2..1.020957.3.579.2.279823-21-8727Btuftls14892930 2.0.1.400676.3.579.2.513464-68-8821Acvvseh4548060 2.840.1.019082.3.579.2.697478-31-0032Gcapjzb7150484 2..840.1.902811.3.579.2.191211-43-9135Kwnhgfl975298745 2..840.1.583559.3.579.2.377197-72-8132Tjzrzyc215172370 2..840.1.024130.3.579.2.962993-76-1772Qfxznub277994701 2.16.840.1.286136.3.579.2.5494Ismxoaa36381064 2.840.1.405714.3.579.2.531 Social History DateTypeDetailFacilityStart: 01-06-2021 End: 86-69-5283Vpwxdp uses seat beltAlways uses seat beltNOMS HealthcareStart: 12-10-2018 End: 15-33-2568Iwlloln smoking statusNever smoked tobacco (finding)[facility]: 49-40-6172Cqaipyy smoking statusNeverTuscarawas Hospitaltart: 01-06-2021 End: 08-74-6743Bxp Assigned At [facility] TrillTip Other ToTriHealthComment on above: denies.Tobacco smoking statusTuscarawas Hospitaltart: 12-10-2018 End: 51-94-0095Gkudgmj use and exposureSmokeless tobacco non-userMemorial Health Systemtart: 04-11-2023 End: 14-63-4188Jfyraer intakeCurrent drinker of alcohol (finding)[facility] Systemtart: 41-44-4474Lsxmtwl Commentmaybe a few drinks a monthKnox Community Hospital Start: 20-87-3850Set Assigned At [facility] RidgeNot on [facility] Hospitalumct HealthStart: 01-10-2024 End: 70-80-5389Dsoikeq intakeLifetime non-drinker (finding)[facility] HealthWithin the last year, have you [...] got money to buy more.Never trueNOMS HealthcareStart: 78-14-2704Jfagmztlk54PENV HealthcareStart: 09-17-0901Fjivusf Commentcaffeine: 1-2 cups per day, coffee and popNOAR HealthcareStart: 20-34-2891Mxlxfry SDOH IPV Nwug0Ipnhj HealthStart: 95-39-5194Opoqqau SDOH Housing Places Fcsii6Lmthk HealthStart: 04-12-2022 [facility] HealthStart: 11-18-2022 End: 05-04-3858Mlluxjfq to SARS-CoV-2 (event)Not sureSusalem city hospital HealthAre you now , , , , never or living with a partner? MarriedNOMS HealthcareDo you feel stress - tense, restless, nervous, or anxious, or unable to sleep at night because yourmind is troubled all the time - these days [OSQ]Only a littleNOAR HealthcareStart: 12-02-2018 End: 14-85-7842OhtMqxirk (finding)[facility] Campustart: 15-13-0406Cfv Assigned At [facility] Centertart: 08-19-2025 End: 07-03-8139Xtyjwevvu beverage intakeCurrent non-drinker of alcohol (finding) [facility] Hospitale-contratos [employer] [facility] Medical Equipment Procedure CodeEquipment CodeEquipment Original TextEquipment IdentifierDates [id number]: 08-20-2025 End: each by In Vitro route Daily Use to check FSBS four times daily [id number]: 08-20-2025 End: 25-43-4957Afo pen needles to give insulin.[id number]: 09-04-2025 Functional Status MfzsGhnmxpvxxpAzvaviSnxwmjsr39-08-8456Hixxa score [AUDIT-C]0 09/10/2025 10:17 AM EDT AshelyDanae Martinez [facility]09-04-2025Patient Health Questionnaire 2 item (PHQ-2) [Reported][facility] HospitalHwpjeptzwk73-73-4287Yrtvh score [AUDIT-C]1 12/29/2024 10:25 PM EST Mychart, GenericNOMS Rrpntytszk79-58-3992Mfx often do you have a drink containing alcohol?Monthly or less 12/29/2024 10:25 PM EST Mychart, Generic Monthly or lessNOMS Qkdxtboesv57-97-1723Qbjtrwgucb status Patient does not drink 12/29/2024 10:25 PM EST Mychart, Generic Patient does not drinkNOUniversity of Missouri Children's HospitalItxgzdaxdl27-28-0662Blk often do you have 6 or more drinks on 1 occasion?Never 12/29/2024 10:25 PM EST Mychart, Generic NeverNOMS [facility] 35-06-3198Qrsvswy Health Questionnaire 2 item (PHQ-2) [Reported][facility] 15-90-8524Neeqptpxax StatusN/[facility]03-08-2023Functional StatusN/[facility]02-04-2023Functional StatusN/[facility]01-02-2023Functional StatusN/[facility] 07-14-2022N/[facility] Clinical Notes 04-18-2022 to 10-06-2025 Note Date & JjnaWemlXxehcoge65-73-2789 History of Present illness Narrative* Chivo Springer PA-C - 10/06/2025 2:30 PM EST Maternal- Medicine Consultation VIDEO Patient is present at work, provider present at [facility] HISTORY OF PRESENT ILLNESS: Juhi Naidu [...] values to us weekly by e-mail to: [email or web address] or by fax to: [phone] Chivo Springer PA-C Maternal- Medicine Office phone: [phone] Chivo Springer PA-C 10/06/25 1606 documented in this encounterOhioHealth Marion [facility] Hospital11-10-2025 Miscellaneous Notes* Telephone Encounter - Anjana Davalos RN - 10/05/2025 2:39 PM EST Left message for patient to send in blood sugar logs prior to video visit toady in [facility] at 3 PM. Also, Instructed patient to contact [facility] if unable to keep appointment today at [facility], then to call at [phone] option 1 to reschedule. documented in this encounterOhioHealth Marion General Hospital11-10-2025 Telephone encounter Note* Telephone Encounter - Anjana Davalos RN - 10/05/2025 2:39 PM EST Left message for patient to send in blood sugar logs prior to video visit toady in [facility] at 3 PM. Also, Instructed patient to contact [facility] if unable to keep appointment today at [facility], then to call at [phone] option 1 to reschedule. [facility]11-05-2025 History of Present illness Narrative* Radha [...] to check FSBS. Blood Glucose Monitoring Suppl (D-Peel Glucometer) w/Device kit 1 kit, Does not [...] John San infection GDM (gestational diabetes mellitus) ([facility]) Headache History of menstrual cramps ([facility]) Varicella zoster Visual impairment HISTORY PAST MEDICAL HISTORY SOCIAL HISTORY Past Medical History: Diagnosis Date Amenorrhea d/t oral contraceptive pills Endometriosis John San infection GDM (gestational diabetes mellitus) ([facility]) Headache History of menstrual cramps severe Hypertension ([facility]) x1 Varicella zoster unsure Visual [...] History: Procedure Laterality Date APPENDECTOMY 05/2016 at [facility] DILATION AND CURETTAGE [...] nursing note reviewed. Exam conducted with a equipment service technician present. Vitals: Estimated body mass index is 30.36 kg/m as calculated from the following: Height as of 07/30/25: 5' 2 . Weight as of this encounter: 166 lb. BP: 140/82 Patient's last menstrual period was 02/21/2025. Assessment/Plan ICD-10-CM 1. Third trimester ([facility]) Z34.93 POCT urinalysis dipstick manually resulted 2. 31 weeks gestation of ([facility]) Z3A.31 3. Pre-eclampsia in third trimester ([facility]) O14.93 Return OB: Patient presents today for [...] of: Nathan Pop DO documented in this encounterEllett Memorial HospitalTrteibjxpi24-58-2610 Miscellaneous Notes* Telephone Encounter - Cha Harris [...] for this week. documented in this encounterOhioHealth Marion General Hospital11-03-2025 Telephone encounter Note* Telephone Encounter - [...] new insulin change for this week. [facility]10-27-2025 Miscellaneous Notes* Telephone Encounter - SILKE [...] blood sugar logs weekly. documented in this [facility]10-27-2025 Telephone encounter Note* Telephone Encounter [...] to send in blood sugar logs weekly. [facility] [employer] Urjnjd50-93-0416 History of Present illness Narrative* Chivo Springer PA-C - 09/21/2025 12:28 PM EDT Insulin dose increased due to elevated fastings. Chivo Springer PA-C 09/21/25 1229 documented in this encounterOhioHealth Marion General Hospital10-22-2025 Miscellaneous Notes* Telephone Encounter - Cha [...] sugars next week. documented in this encounterOhioHealth Marion General Hospital10-22-2025 Telephone encounter Note* Telephone Encounter - [...] in new blood sugars next week. [facility]10-22-2025 History of Present illness Narrative* Steph [...] John San infection GDM (gestational diabetes mellitus) ([facility]) Headache History of menstrual cramps ([facility]) Varicella zoster Visual impairment HISTORY PAST MEDICAL HISTORY SOCIAL HISTORY Past Medical History: Diagnosis Date Amenorrhea d/t oral contraceptive pills Endometriosis John San infection GDM (gestational diabetes mellitus) ([facility]) Headache History of menstrual cramps severe Hypertension ([facility]) x1 Varicella zoster unsure [...] History: Procedure Laterality Date APPENDECTOMY 05/2016 at [facility] DILATION AND CURETTAGE [...] nursing note reviewed. Exam conducted with a equipment service technician present. Vitals: Estimated body mass index is 29.78 kg/m as calculated from the following: Height as of 25: 5' 2 . Weight as of this encounter: 162 lb 12.8 oz. BP: 120/80 Patient's last menstrual period was 02/21/2025. Assessment/Plan ICD-10-CM 1. 29 weeks gestation of ([facility]) Z3A.29 POCT urinalysis dipstick manually resulted 2. Third trimester ([facility]) Z34.93 POCT urinalysis dipstick manually resulted 3. Hypertension affecting , antepartum ([facility]) O16.9 4. Gestational diabetes mellitus (GDM), antepartum, gestational diabetes method of control unspecified ([facility]) O24.419 Return OB: Patient presents today for [...] and continues to report glucose log to [facility]. Follow up Ultrasound in 4 weeks. Orders Placed This Encounter Procedures POCT urinalysis dipstick manually resulted Follow Up: Patient is to return to office in 2 week for routine OB appointment. Documented by Steph Keane NP on behalf of: Nathan Pop DO documented in this encounterEllett Memorial HospitalRveyexttet10-64-5750 History of Present illness Narrative* Madhuri Monroy MD - 09/10/2025 11:00 AM EDT Video Visit via Real-time Synchronous Audiovisual Provider Location: [facility]- MEDICINE [address] [place] [address], [address] [place] [address] Patient Location: Other [facility] office Patient Location Obiee Lead Developer: None Video Visit Consent Statement: I discussed [...] that there are some limitations compared to zqky-qt-dusd evaluations. We elected to proceed. 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 Patient does have ultrasound video visit scheduled [...] provider today? none documented in this encounterOhioHealth Marion General Hospital10-10-2025 History of Present illness Narrative* Radha [...] Yes Have you been seen here at [facility] in a previous ? No Recent ER visits or hospitalizations? 09/03/25 [place] to r/o preeclampsia. Patient states labs WNL Bring blood sugar log or meter with you today? (Please bring them with you for every visit at [facility]) Yes Flu vaccine (Sep-January)? N/A Any [...] and the other consultants, we search on [employer] and all the available care everywhere epic I did review all the imaging studies of the patient available on EMR, ordered by the primary care physician and the other marketing operations consultant HABITS: Patient activity no restrictions, diet [...] checking blood glucose and remote evaluation through [facility] office until delivery. 5. 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 Patient does have ultrasound video visit scheduled [...] with questions or concerns. documented in this encounterProMedica Defiance Regional HospitalFiksu Binydp56-62-7788 History of Present illness Narrative* Steph Keane NP - 09/03/2025 3:50 PM EDT Reason for Appointment: Patient ID: Juih Gama is a 30 y.o. female who [...] meal for a total of 4times daily. eofultrxkv-pyiwjtg-auarsiwb (Fiorinal) 50-325-40 MG capsule 1 capsule, Oral, [...] San infection Headache History of menstrual cramps ([facility]) Varicella zoster Visual impairment HISTORY PAST MEDICAL HISTORY SOCIAL HISTORY Past Medical History: Diagnosis Date Amenorrhea d/t oral contraceptive pills Endometriosis John San infection Headache History of menstrual cramps severe Hypertension ([facility]) x1 Varicella zoster unsure [...] History: Procedure Laterality Date APPENDECTOMY 05/2016 at [facility] DILATION AND CURETTAGE [...] nursing note reviewed. Exam conducted with a equipment service technician present. Vitals: Estimated body mass index is 29.41 kg/m as calculated from the following: Height as of 25: 5' 2 . Weight as of this encounter: 160 lb 12.8 oz. BP: 170/90 Patient's last menstrual period was 02/21/2025. ASSESSMENT & PLAN ICD-10-CM 1. 27 weeks gestation of ([facility]) Z3A.27 POCT urinalysis dipstick manually resulted 2. Second trimester ([facility]) Z34.92 Documented by Steph Keane NP on behalf of: Steph Keane NP documented in this encounterEllett Memorial HospitalPwqxgqawux97-46-5616 Miscellaneous Notes* Telephone Encounter - Cha Harris [...] make that appt. documented in this encounterOhioHealth Marion General Hospital10-07-2025 Telephone encounter Note* Telephone Encounter - [...] Pt asked to be transferred to the [facility] to make that appt. [facility] [employer] Bbyhev31-70-4540 History of Present illness Narrative* Steph Keane [...] to check FSBS. Blood Glucose Monitoring Suppl ([employer]-Peel Glucometer) w/Device kit 1 kit, Does not [...] San infection Headache History of menstrual cramps ([facility]) Varicella zoster Visual impairment HISTORY [...] History: Procedure Laterality Date APPENDECTOMY 05/2016 at [facility] DILATION AND CURETTAGE [...] nursing note reviewed. Exam conducted with a equipment service technician present. Vitals: Estimated body mass index is 29.23 kg/m as calculated from the following: Height as of 07/30/25: 5' 2 . Weight as of this encounter: 159 lb 12.8 oz. BP: (!) 158/92 Patient's last menstrual period was 02/21/2025. ASSESSMENT & PLAN ICD-10-CM 1. 26 weeks gestation of ([facility]) Z3A.26 POCT urinalysis dipstick manually resulted 2. Second trimester ([facility]) Z34.92 Return OB: Patient presents today [...] and have her evaluated today at [facility] OB. I discussed with OB today and they are aware that patient is coming to be ev aluated. Orders Placed This Encounter Procedures POCT urinalysis dipstick manually resulted Follow Up: Patient is to return to office in 2 week for routine OB appointment. Documented by Steph Keane NP on behalf of: Steph Keane NP documented in this encounterEllett Memorial HospitalWczuyfhiec00-63-1869 Group counseling note* Group Note - Kerline [...] Face to face time was 80 minutes. [employer] Work Phone: [phone] Miscellaneous Notes* Group Note - Kerline Augustin [...] time was 80 minutes. documented in this encounterProMedica Defiance Regional HospitalOntuitive [facility] HospitalHjwzwh48-68-9742 History of Present illness Narrative* Steph Keane [...] San infection Headache History of menstrual cramps ([facility]) Varicella zoster Visual impairment HISTORY [...] History: Procedure Laterality Date APPENDECTOMY 05/2016 at [facility] DILATION AND CURETTAGE [...] nursing note reviewed. Exam conducted with a equipment service technician present. Vitals: Estimated body mass index is 27.82 kg/m as calculated from the following: Height as of 07/30/25: 5' 2 . Weight as of this encounter: 152 lb 1.9 oz. BP: 138/82 Patient's last menstrual period was 02/21/2025. ASSESSMENT & PLAN ICD-10-CM 1. 24 weeks gestation of ([facility]) Z3A.24 POCT urinalysis dipstick manually resulted 2. Second trimester ([facility]) Z34.92 POCT urinalysis dipstick [...] on Labetalol 100mg BID. Will refer to [facility] for evaluation. Patient deniesany Headache or blurred vision. Documented by Steph Keane NP on behalf of: Nathan Pop DO documented in this encounterEllett Memorial HospitalMpkjrxblro33-90-0461 History of Present illness Narrative* Eliceo Beltran [...] infection Headache History of menstrual cramps Hypertension ([facility]) Varicella zoster Visual impairment Objective [...] Orders: Lipid panel; Future documented in this encounterEllett Memorial HospitalRlhuzdwmcg95-20-6920 History of Present illness Narrative* Christine Ravi [...] History: Procedure Laterality Date APPENDECTOMY 05/2016 at [facility] DILATION AND CURETTAGE [...] nursing note reviewed. Exam conducted with a equipment service technician present. Vitals: Estimated body mass index is 26.48 kg/m as calculated from the following: Height as of 12/30/24: 5' 2 . Weight as of this encounter: 144 lb 12.8 oz. BP: 120/80 Patient's last menstrual period was 02/21/2025. ASSESSMENT & PLAN ICD-10-CM 1. 20 weeks gestation of ([facility]) Z3A.20 POCT urinalysis dipstick manually resulted 2. Second trimester ([facility]) Z34.92 POCT urinalysis dipstick manually resulted 3. [...] of: Nathan Pop DO documented in this encounterEllett Memorial HospitalVujofeibar19-97-2134 History of Present illness Narrative* Steph Keane [...] San infection Headache History of menstrual cramps ([facility]) Varicella zoster Visual impairment HISTORY [...] History: Procedure Laterality Date APPENDECTOMY 05/2016 at [facility] DILATION AND CURETTAGE [...] nursing note reviewed. Exam conducted with a equipment service technician present. Vitals: Estimated body mass index is 26.73 kg/m as calculated from the following: Height as of 12/30/24: 5' 2 . Weight as of this encounter: 146 lb 1.9 oz. BP: 118/74 Patient's last menstrual period was 02/21/2025. ASSESSMENT & PLAN (Z34.92) Second trimester ([facility]) Plan: POCT urinalysis dipstick manually resulted, Alpha fetoprotein, maternal, Alpha fetoprotein, maternal (Z3A.17) 17 weeks gestation of ([facility]) Plan: POCT urinalysis dipstick manually resulted, Alpha fetoprotein, maternal, Alpha fetoprotein, maternal (Z36.89) Screening, , for anatomic survey ([facility]) Plan: US OB 14+ weeks anatomy scan [...] of: Nathan Pop DO documented in this encounterEllett Memorial HospitalUycoswfhcg77-39-8676 History of Present illness Narrative* Steph Keane [...] San infection Headache History of menstrual cramps ([facility]) Varicella zoster Visual impairment HISTORY [...] History: Procedure Laterality Date APPENDECTOMY 05/2016 at [facility] DILATION AND CURETTAGE [...] nursing note reviewed. Exam conducted with a equipment service technician present. Vitals: Estimated body mass index is 25.24 kg/m as calculated from the following: Height as of 12/30/24: 5' 2 . Weight as of this encounter: 138 lb. BP: 122/80 Patient's last menstrual period was 02/21/2025. ASSESSMENT & PLAN ICD-10-CM 1. Second trimester ([facility]) Z34.92 POCT urinalysis dipstick manually resulted 2. 13 weeks gestation of ([facility]) Z3A.13 Return OB: Patient presents today for [...] of: Nathan Pop DO documented in this encounterEllett Memorial HospitalUgtpyapvls66-69-8085 History of Present illness Narrative* Hina Go [...] Gastroparesis 03/29/2023 Hypertension ([facility]) 03/29/2023 Intractable migraine without aura and with status migrainosus ([facility]) 03/29/2023 Migraines ([facility]) 03/29/2023 Chronic pelvic pain in female 03/29/2023 Pain in female genitalia on intercourse 03/29/2023 Pain on swallowing 03/29/2023 Panic disorder ([facility]) 03/29/2023 Patellofemoral disorders, left knee 03/29/2023 Patellofemoral disorders, right knee 03/29/2023 Posterior calcaneal exostosis 03/29/2023 Scapular dyskinesis 03/29/2023 Scoliosis 03/29/2023 Seasonal allergic rhinitis due to pollen 03/29/2023 Tachycardia, paroxysmal ([facility]) 03/29/2023 Tension headache 03/29/2023 [...] History: Procedure Laterality Date APPENDECTOMY 05/2016 at [facility] DILATION AND CURETTAGE [...] or undercooked meat, and stay away from [facility]. Patient has also been advised to [...] by: Hina Go LPN documented in this encounterEllett Memorial [id number] History of Present illness Narrative* Candis Yanes, MANAGER SCHEDULING - 01/19/2025 2:50 PM EST Reason for Appointment: Patient ID: Juhi Gama is a 29 y.o. female who presents for Painful [place] Patient presents today for Consult appointment. MEDICATIONS Current Outpatient Medications Medication Instructions ujcdodzngj-conoxcegbcabp-iqbypatc 50-325-40 MG tablet 1 tablet, Oral, Every [...] Gastroparesis 03/29/2023 Hypertension ([facility]) 03/29/2023 Intractable migraine without aura and with status migrainosus ([facility]/H[facility]) 03/29/2023 Migraines ([facility]) 03/29/2023 Chronic pelvic pain in female 03/29/2023 Pain in female genitalia on intercourse 03/29/2023 Pain on swallowing 03/29/2023 Panic disorder ([facility]) 03/29/2023 Patellofemoral disorders, left knee 03/29/2023 Patellofemoral [...] History: Procedure Laterality Date APPENDECTOMY 05/2016 at [facility] DILATION AND CURETTAGE [...] nursing note reviewed. Exam conducted with a equipment service technician present. Vitals: Estimated body mass index [...] patient and patient given direct extension to [employer] for any questions/concerns pertaining to fertility. Documented by Candis Yanes LPN on behalf of: Nathan Pop DO documented in this encounterEllett Memorial [id number] History of Present illness Narrative* Eliceo Beltran [...] History: Procedure Laterality Date APPENDECTOMY 05/2016 at [facility] DILATION AND CURETTAGE [...] min Stress: No Stress Concern Present (12/29/2024) [place] [employer] - Occupational Stress Questionnaire Feeling of Stress : Only a little Social Connections: Unknown (12/29/2024) Social Connection and Isolation Panel [NHANES] Frequency of Communication with Friends and Family: More than three times a week Frequency of Social Gatherings with Friends and Family: Once a week Attends Worship Services: Patient declined Active Member of Clubs [...] with the patient today. Current Outpatient Medications: gdpjusutkk-nngirnrmqspmn-slccntnq 50-325-40 MG tablet, Take 1 tablet by mouth every 6 (six) hours if needed for headaches, Disp: 20 tablet, Rfl: 0 desogestrel-ethinyl estradiol (Apri) 0.15-30 MG-MCG tablet, Take 1 tablet by mouth Daily, Disp: 21 tablet, Rfl: 12 metoprolol succinate XL (Toprol-XL) 25 MG 24 hr tablet, Take 1 tablet by mouth daily, Disp: 90 tablet, Rfl: 1 documented in this encounterEllett Memorial [id number] History of Present illness Narrative* Virgen Steen LPN - 08/18/2024 11:00 AM EDT Reason for Appointment: Patient ID: Juhi Cope is a 29 y.o. female who presents for Well Women Visit Patient presents today for Annual Exam. MEDICATIONS Current Outpatient Medications Medication Instructions vbyqwuqvag-hnuvhizlwjluu-sackoiif 50-325-40 MG tablet 1 tablet, Oral, Every [...] 03/29/2023 Panic disorder ([facility]) 03/29/2023 Patellofemoral disorders, left knee 03/29/2023 Patellofemoral [...] Date Amenorrhea d/t oral contraceptive pills John Sna infection Headache History of menstrual cramps Varicella zoster Visual impairment HISTORY PAST MEDICAL HISTORY SOCIAL HISTORY Past Medical History: Diagnosis Date Amenorrhea d/t oral contraceptive pills Endometriosis John San infection Headache History of menstrual cramps severe Hypertension ([facility]) x1 Varicella zoster unsure [...] History: Procedure Laterality Date APPENDECTOMY 05/2016 at [facility] DILATION AND CURETTAGE [...] nursing note reviewed. Exam conducted with a equipment service technician present. Vitals: Estimated body mass index [...] of: Zenobia Gutierrez PA-C documented in this encounterEllett Memorial [id number] History of Present illness Narrative* Christine Ravi LPN - 07/22/2024 9:50 AM EDT Reason for Appointment: Patient ID: Juhi Cope is a 29 y.o. female who presents for Dysmenorrhea Patient presents today for Acute Visit. MEDICATIONS Current Outpatient Medications Medication Instructions zvnhofrimi-xvmyxmmxnuhkz-dsdpxrvo 50-325-40 MG tablet 1 tablet, Oral, Every [...] History: Procedure Laterality Date APPENDECTOMY 05/2016 at [facility] DILATION AND CURETTAGE [...] nursing note reviewed. Exam conducted with a equipment service technician present. Vitals: Estimated body mass index [...] of: Nathan Pop DO documented in this encounterEllett Memorial HospitalTavvvgqcqa38-02-3732 Telephone encounter Note* Telephone Encounter - Candis Garces - 04/29/2024 8:23 AM EDT Received message from admin Anna Webb to cancel surgery and all appts as pt had services elsewhere [facility]06-04-2024 Miscellaneous Notes* Telephone Encounter - Candis Garces - 04/29/2024 8:23 AM EDT Received message from admin Anna Webb to cancel surgery and all appts as pt had services elsewhere documented in this encounterKn[facility]05[facility] Telephone encounter Note * Telephone Encounter - Anna De Leon - 04/25/2024 1:10 PM EDT Pt got in sooner for surgery with her local senior advocate. Please cancel surgery and all pre and post op appts. [facility]05-31-2024 Miscellaneous Notes* Telephone Encounter - Anna De Leon - 04/25/2024 1:10 PM EDT Pt got in sooner for surgery with her local senior advocate. Please cancel surgery and all pre and post op appts. documented in this encounterKnox [facility] Hospital02-[facility]24 History of Present illness Narrative* Nathan [...] History: Procedure Laterality Date APPENDECTOMY 05/2016 at [facility] DILATION AND CURETTAGE [...] nursing note reviewed. Exam conducted with a equipment service technician present. Vitals: Estimated body mass index [...] of: Nathan Kiesha, DO documented in this encounterEllett Memorial HospitalImeiwnbvma18-56-6993 Miscellaneous Notes* Telephone Encounter - Pippa Simon [...] mg tablet Class: Normal Route: ORAL Order: [id number] E-Prescribing Status: Receipt confirmed by pharmacy (05/17/2023 [...] that may recur and often requires a prison treatment plan. Once endometriosis is identified, there [...] Center 05/20/2024 10:00 AM [facility] 10:30 AM Charlene Rodriguez DO [facility] Appointment scheduled: As listed above Action taken: Refill request routed to clinician Pippa Simon RN January 03, 2024 4:29 PM * Telephone Encounter - Alena Tracy - 01/02/2024 3:52 PM EST Patient: Juhi Cope : 1995 Provider: Charlene Rodriguez DO Caller Phone #: [phone] (home) [phone] (cell) Reason for call: b/c refill Message routed to nurse triage Date of next visit: MEGAN: 12/10/2023 documented in this encounterKnox [facility] Hospital01-15-2024 NoteHNO ID: [id number] Author: CHARLENE RODRIGUEZ DO Service: ? Author Type: Physician Type: Progress Notes Filed: 12/10/2023 15:14 Note Text: [facility] [place] SECTION FOR MINIMALLY INVASIVE GYNECOLOGIC SURGERY OUTPATIENT VISIT DATE 12/10/2023 OUTPATIENT VISIT TYPE Follow-up visit PRIMARY CARE PHYSICIAN: Denny Rodríguez [address] [place] [address] REFERRING PHYSICIAN: Self CHIEF COMPLAINT: No chief [...] MRI: no evidence of Past Gynecologic History: Home Supervisor History LMP: 07/08/2023 (Exact Date), Having periods Age at Menarche: 14 Age at First : 27 Age at Menopause: Home Supervisor History Comments: Sexual Activity: Never; No [...] presents today with pelvic (more content not included)...[facility]10-18-2023 Hospital Discharge instructions Patient Education 09/12/2023 [...] Follow these instructions at home: Medicines Take smbj-bpe-quucxur and prescription medicines only as told by [...] buy a blood pressure monitor at most [employer] or online. Where to find more information [...] provider. Document Revised: 07/27/2022 Document Reviewed: 07/27/2022 [employer] Patient Education 2022 Saperion. 09/12/2023 18:18:13 Hypertension, Adult, Wvtg-dk-Dyzx Hypertension, Adult Hypertension is another name for [...] doctor. Keep all follow-up visits. Medicines Take zvpy-gps-vrmmdfx and prescription medicines only as told by [...] provider. Document Revised: 08/31/2022 Document Reviewed: 08/31/2022 [employer] Patient Education 2022 Saperion. 09/12/2023 18:18:13 General Headache Without Cause, Hzyo-jl-Enpa General Headache Without Cause A headache is pain or discomfort you feel around the head or neck area. There are many causes and types of headaches. In some cases, the cause may not be found. Follow these instructions at home: Watch your condition for any changes. Let your doctor know about them. Take these steps to help with your condition: Managing pain Take blse-hjh-bmbrtzd and prescription medicines only as told by [...] provider. Document Revised: 04/12/2022 Document Reviewed: 04/12/2022 [employer] Patient Education 2022 Saperion. Follow Up Care 09/12/2023 17:21:57 With:DENNY RODRÍGUEZ Address: [address] [place] [address] Business (1) When:09/15/2023 18:03:37 Comments:Follow-up with your primary care provider in 3 to 5 days. If symptoms worsen, do not improve, or new symptoms arise please report back to emergency department for further evaluation. [facility]10-18-2023 Evaluation + Plan noteExtracted from: [...] date 09/12/23 18:02:00 EDT, 09/12/23 18:02:00 EDT [facility]10-16-2023 Instructions* Patient Instructions* Jihan Downs APRN.CNP - 09/10/2023 9:52 AM EDT Plan: Trial baclofen suppositories - can switch to pill vaginally if suppositories are not affordable Consider Pelvic floor physical therapy - can find local provider [email or web address] Consider going back to see Dr Kuldip Downs APRN.CNP documented in this encounterKnox Community Hospital10-05-2023 NoteHNO ID: [id number] Author: Charlene Rodriguez DO Service: ? Author Type: Physician Type: Progress Notes Filed: 08/30/2023 11:15 AM Note Text: Tramadol rx sent to pharmacy.[facility]10-05-2023 History of Present illness Narrative* Charlene Rodriguez DO - 08/30/2023 11:13 AM EDT Tramadol rx sent to pharmacy. documented in this encounterKnox Community Hospital10-05-2023 Miscellaneous Notes* Telephone Encounter - Chelsie Dueñas RN - 08/30/2023 10:50 AM EDT Last office visit: 08/24/2023 Assessment and Plan No diagnosis found. Trial baclofen suppositories Will send list of PTs Consider going back to [facility] SIGNATURE: Jihan Downs APRN.BUSINESS MAIL ENTRY CLERK Office visit with Dr. Rodriguez 07/16/2023 IMPRESSION: [...] plan. Charlene Rodriguez DO documented in this encounterKnox Community Hospital09-29-2023 NoteHNO ID: [id number] Author: Jihan Downs APRN.ANA LAURA Service: ? Author Type: Nurse Practitioner Type: Progress Notes Filed: 09/10/2023 9:53 AM Note Text: [facility] [place] Department of Benign Gynecology [facility] PATIENT NAME: Juhi Cope DATE: 08/24/2023 Patient Name and verified: Yes Patient Location: [place] This Virtual Visit was completed using My Chart Zoom platform. I have communicated my name and active licensure. The patient's identity and physical location were verified at the time of this visit. Either the patient or their legal territory service representative has been informed of the [...] appointment yet. GI - constipation is improved [place] - hasn't tried due to pain and [...] physical therapy - or can go locally pelvic[facility]abN[facility] Trial flexeril at bedtime Can consider Baclofen suppositories Continue Norethindrone - can take up to 3 months for it to stop periods, take at same time every day Relaxation techniques Jihan Downs APRN.BUSINESS MAIL ENTRY CLERK OB History T0 L1 SAB0 IAB0 Ectopic0 Multiple0 Live Births0 Home Supervisor History LMP: 07/08/2023 (Exact Date), Having periods Age at Menarche: 14 Age at First : 27 Age at Menopause: Home Supervisor History Comments: Sexual Activity: Never; No [...] toxic appearing HEENT nor (more content not included)...[facility]09-29-2023 History of Present illness Narrative* Jihan Downs APRN.BUSINESS MAIL ENTRY CLERK - 08/24/2023 9:24 AM EDT Images from the original note were not included. [facility] [place] Department of Benign Gynecology [facility] PATIENT NAME: Juhi Cope DATE: 08/24/2023 Patient Name and verified: Yes Patient Location: [place] This Virtual Visit was completed using My Chart Zoom platform. I have communicated my name and active licensure. The patient's identity and physical location wereverified at the time of this visit. Either the patient or their legal territory service representative has been informed of the [...] appointment yet. GI - constipation is improved [place] - hasn't tried due to pain and [...] physical therapy - or can go locally pelvicPrizedabNanda [employer] Trial flexeril at bedtime Can consider Baclofen suppositories Continue Norethindrone - can take up to 3 months for it to stop periods, take at same time every day Relaxation techniques Jihan Downs APRN.BUSINESS MAIL ENTRY CLERK OB History T0 L1 SAB0 IAB0 Ectopic0 Multiple0 Live Births0 Home Supervisor History LMP: 07/08/2023 (Exact Date), Having periods Age at Menarche: 14 Age at First : 27 Age at Menopause: Home Supervisor History Comments: Sexual Activity: Never; No [...] to see Dr Rodriguez SIGNATURE: Jihan Downs, JAMI.BUSINESS MAIL ENTRY CLERK Medical Decision Making: Problems: Low: Stable chronic illness Risk: Moderate: Drug management Medical Decision Making Level: 3 - Low documented in this encounterKnox Community Hospital09-22-2023 Miscellaneous Notes* Telephone Encounter - Marilee Valdez APRN.CNP - 08/17/2023 3:17 PM EDT Recommend sooner appt with Kuldip if available vs appt with Jihan Downs CNP with CPP team in addition to keeping her scheduled follow up with DR. Rodriguez. aMrilee Valdez APRN.CNP August 17, 2023 3:18 PM [...] Patient: Juhi Cope : 1995 Provider: Charlene Rodirguez DO Caller Phone #: [phone] (home) [phone] (cell) Reason for call: pt calling regarding mc message., still in pain. Please call [phone] Message routed to nurse triage Date of next visit: documented in this encounterKnox Community Hospital09-07-2023 Miscellaneous Notes* Telephone Encounter - Candis Suárez RN - 08/02/2023 11:29 AM EDT PA for orilissa completed via [employer]. Juhi Cope (Morales: [id number]) - [id number] Orilissa 150MG tablets Status: Sent To Plan [...] too. Please advise. Thanks. documented in this encounterKnox Community Hospital08-21-2023 NoteHNO ID: [id number] Author: Charlene Rodriguez DO Service: ? Author Type: Physician Type: Progress Notes Filed: 07/16/2023 12:41 PM Note Text: [facility] [place] SECTION FOR MINIMALLY INVASIVE GYNECOLOGIC SURGERY OUTPATIENT VISIT DATE 07/16/2023 OUTPATIENT VISIT TYPE Follow-up visit PRIMARY CARE PHYSICIAN: Denny Rodríguez [address] [place] [address] REFERRING PHYSICIAN: Denny Rodríguez CHIEF COMPLAINT: No [...] additional bowel lesions identified Past Gynecologic History: Home Supervisor History LMP: 07/08/2023 (Exact Date), Having periods Age at Menarche: 14 Age at First : 27 Age at Menopause: Home Supervisor History Comments: Sexual Activity: Never; No [...] Signs: 07/16/23 1115 BP: (more content not included)...[facility]07-18-[facility] History of Present illness Narrative* Boo [...] 12, 2023 4:32 PM documented in this encounterKnox Community Hospital07-18-2023 NoteHNO ID: [id number] Author: Rosio Malcolm RT(R) Service: ? Author Type: Lead Shipper Type: Progress Notes Filed: 06/12/2023 4:32 PM [...] BY: RT Claudia(Bryant) June 12, 2023 4:32 PMCLima Memorial Hospital07-18-2023 NoteHNO ID: [id number] Author: Boo Singh RN Service: Nursing Author [...] June 12, 2023 TIME: 1:43 [facility]06-22-2023 NoteHNO ID: [id number] Author: Charlene Rodriguez, DO Service: ? Author Type: Physician Type: Progress Notes Filed: 05/21/2023 10:15 AM Note Text: [facility] [place] SECTION FOR MINIMALLY INVASIVE GYNECOLOGIC SURGERY OUTPATIENT [...] to appointment last week Past Gynecologic History: Home Supervisor History LMP: 04/22/2023 (Exact Date), Having periods Age at Menarche: 14 Age at First : 27 Age at Menopause: Home Supervisor History Comments: Sexual Activity: Never; No [...] treatment plan. Charlene Rodriguez DO Tt: 20 minutesToledo Hospital06-22-2023 History of Present illness Narrative* Charlene Rodriguez DO - 05/17/2023 1:05 PM EDT Images from the original note were not included. [facility] [place] SECTION FOR MINIMALLY INVASIVE GYNECOLOGIC SURGERY OUTPATIENT [...] to appointment last week Past Gynecologic History: Home Supervisor History LMP: 04/22/2023 (Exact Date), Having periods Age at Menarche: 14 Age at First : 27 Age at Menopause: Home Supervisor History Comments: Sexual Activity: Never; No [...] DO Tt: 20 minutes documented in this encounterKnox Community Hospital06-16-2023 Miscellaneous Notes* Telephone Encounter - Candis Suárez RN - 05/11/2023 4:19 PM EDT Reports vaginal bleeding, using panty liners, changing a few times a day, not severe. Biggest complaint is cramping. Has had 3 periods of bleeding recently - 04/22/2023 LMP, last a few days, 05/04-05/10 bleeding again 05/11/2023 started again today. Takes aygestin 5mg daily. 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 Reviewed red flag bleeding symptoms that require trip to ER (soaking greater than one overnight padper hour, chest pain, shortness of breath, fatigue, palpitations).. Advised keep appt. Gives verbal understanding. Appointments for Next 60 Days Date Time Provider Location Dept Phone 05/17/2023 1:00 PM CHARLENE RODRIGUEZ [facility] [phone] Candis Suárez RN * Telephone Encounter - Tawana Nair [facility] - 05/11/2023 1:19 PM EDT Reason for call: other - Vaginal bleeding Provider name: Dr Rodriguez Additional comments: patient having more vaginal bleeding and concerned she is getting worse. Recommendation: routed to nurse triage pool documented in this encounterKnox Community Hospital06-06-2023 Instructions* Patient Instructions* Jihan Downs APRN.ANA LAURA - 05/01/2023 11:47 AM EDT Plan Pelvic floor physical therapy - or can go locally pelvicPrizedabNanda Technologies Trial flexeril at bedtime Can consider [...] pelvic pain society ([email or web address]) documented in this encounterKnox Community Hospital06-06-2023 History of Present illness Narrative* Jihan Downs APRN.ANA LAURA - 05/01/2023 10:30 AM EDT Juhi Cope is a 28 year old female who presents for problem visit for pain HPI: Pain is week before period and week of period. Worse on her period for every day she's bleeding Urinary - No symptoms GI - Always constipated. No meds [place] - painful always Pain is on left [...] L0 SAB0 IAB0 Ectopic0 Multiple0 Live Births0 Home Supervisor History LMP: 03/26/2023 (Approximate), Having periods Age at Menarche: Age at First : Age at Menopause: Home Supervisor History Comments: Sexual Activity: Never; No [...] physical therapy - or can go locally [employer] Trial flexeril at bedtime Can consider Baclofen [...] Level: 4 - Moderate documented in this encounterKnox Community Hospital06-06-2023 NoteHNO ID: [id number] Author: Jihan Downs APRN.CNP Service: ? Author Type: Nurse Practitioner Type: Progress Notes Filed: 05/09/2023 11:46 AM Note Text: Juhi Cope is a 28 year old female who presents for problem visit for pain HPI: Pain is week before period and week of period. Worse on her period for every day she's bleeding Urinary - No symptoms GI - Always constipated. No meds [place] - painful always Pain is on left [...] L0 SAB0 IAB0 Ectopic0 Multiple0 Live Births0 Home Supervisor History LMP: 03/26/2023 (Approximate), Having periods Age at Menarche: Age at First : Age at Menopause: Home Supervisor History Comments: Sexual Activity: Never; No [...] physical therapy - or can go locally [employer] Trial flexeril at bedtime Can consider Baclofen [...] management Medical Decision Making Level: 4 - [facility]erateT[facility]05-31-2023 Miscellaneous Notes* Telephone Encounter - Marilee [...] months. Lucila Foss RN documented in this encounterKnox Community Hospital03-08-2023 Hospital Discharge instructions Patient Education 01/31/2023 [...] told by your health care provider. Take klnc-cbz-bpqtwrg and prescription medicines only as told by [...] 01/03/2007 Document Revised: 10/25/2018 Document Reviewed: 01/25/2018 [employer] Patient Education 2020 Saperion. Follow Up Care 01/31/2023 13:43:01 With:Denny Meza Address:Unknown When:02/03/2023 18:59:31 Comments:Follow-up for evaluation of hypertension in context of known preeclampsia in the period With:DENNY RODRÍGUEZ [facility] [address] [place] [address]- Business (1) When:Within 3 Day(s) [facility]03-08-2023 Evaluation + Plan noteExtracted from: Title:ED NoteAuthor:Mayur Mabry PA-C CDate:01/31/23 Flank pain (R10.9: Unspecifi ed abdominal pain) Headache (R51.9: Headache, unspecified) Orders: CTA Chest Hepatic Function Panel [facility]02-04-2023 Hospital Discharge instructions Patient Education 12/30/2022 13:59:51 METAL WORKER - Post D&C, Hysteroscopy, LEEP or Essure/Laparoscopy [...] Instructions - FT (Custom) (Custom) 12/30/2022 13:55:16 METAL WORKER - Post D&C, Hysteroscopy, LEEP or Essure/Laparoscopy [...] With:Denny Meza Address: [address], [place] [address] [place] [address]- Business (1) When: Unknown Comments:follow up in 1-2 weeks With:DENNY RODRÍGUEZ Address: [address] [place] [place] [address]- Business (1) When:01/02/2023 09:21:18 [facility]02-04-2023 Evaluation + Plan noteExtracted from: [...] reviewed, procedure reviewed, Extracted from:Title:ANES Pre-operative NoteAuthor:Kenneth Augstin MDDate: 12/30/22 Plan [place] [employer] [...] With Cult Reflex US Pelvis Non-OB Complete [facility]01-10-2023 History of Present illness Narrative* [...] Ross MD - 12/05/2022 3:19 PM EST [facility]: This patient was seen in the [facility] by the resident. I reviewed and agree with the care provided by the resident during or immediately following the visit including the patient's medical history, the resident's finding in the physical exam, patient's diagnosis and treatment plan. documented in this [facility]01-07-2023 NoteDepartment of Obstetrics and Gynecology Delivery Discharge Summary Admission on 11/28/2022 12:24 AM Hospital course: Juhi Cope at 35w1d admitted as a transfer from [facility] for [facility]. She was started on Magnesium there [...] Information for the patient's : Francie Cope [[id number]] female 2425 g (5 lb 5.5 oz) Apgars: Information for the patient's : Francie Cope [[id number]] : Infant: Girl Blood Type/Rh: O Antibody [...] Your Medications These medications were sent to [facility] [address] [place], [place] [id number] Hours: Sunday to Sunday 10 am to [...] [] Order the blood pressure log through [employer] [x] Place an office visit or telephone [...] if she so chooses. Provider's Name: DO Vanesas Zambrano DO 12/02/2022, 5:09 AM * Chelsi [...] with more than 50% of the total mrjj-rx-tdxi time of the visit in counseling/coordination of [...] be monitored and followed by the diet central supply technician. CRISS Oshea * Alejandra Arcos RN - 11/30/2022 11:30 AM EST Patient unable to void, last straight cathed at 0400. Bladder scan obtained for >928 ml, fundus +2 and shifted to right. Patient straight cathed on attempt x2 by Anid Bacon RN for 950cc. Will continue to [...] and reassuring. CCM. Cx:/-3 FHT: Cat 1 [place]:q3-4 min A/P: 1. IOL-PreEwSF. FHT 130 baseline, with moderate variability, Accelerations present Yes, and rare late deceleration . Cervical exam unchanged. Cytotec x4 placed at this time. Patient intermittently feeling contractions. BP mild range. Cx: 1-/-3 FHP: defer FHT: Cat I [place]: a3-4min A/P: 1. IOL-PreEwSF: FHT Category I, [...] Cx: unchanged FHP: defer FHT: Cat I [place]: q4min A/P: 1. IOL-PreEwSF: FHT Category I, [...] 11/29/2022 6:17 AM Cx:1-2/60/-3 FHT: Cat I [place]:q4-5mins A/P: 1. IOL-PreEwSF: Cat I FHT with [...] per protocol. CCM. Cx:defer FHT: Cat I [place]:q4-6mins A/P: 1. IOL-PreEwSF: Cat I FHT with baseline 120, moderate variability, spontaneous accelerations, and no decelerations. BP normotensive to mild range since last note time. Pitocin @ 2 cc/hr, continue to titrate per protocol. Magnesium sulfate running for seizure prophylaxis, UOP 400 ml over past 4hours. CCM. Cx:defer FHT: Cat I [place]:q4-5mins A/P: 1. IOL-PreEwSF: Cat I FHT with baseline 135, moderate variability, spontaneous accelerations, and no decelerations. BP normotensive to mild range since last note time. Pitocin @ 6 cc/hr, continue to titrate per protocol. Magnesium sulfate running for seizure prophylaxis, UOP 600 ml over past 4hours. Will plan for AROM soon. CCM. Cx:defer FHT: Cat I [place]:irritability A/P: 1. IOL-PreEwSF: Pit @ 8 mu/min. Patient resting comfortably and only irritability tracing on toco. BP most recently mild range. On magnesium sulfate for seizure prophylaxis. UOP adequate. Continue magnesium and continue to titrate pitocin per protocol. Plan for AROM once patient rudi more regularly. Electronically signed by Cortney Velasquez DO 11/29/2022 4:21 PM Cx:470/-3 FHT: Cat 1 [place]:Not tracing A/P: 1. IOL-PreEwSF. FHT 135 baseline, with moderate variability, Accelerations present Yes, and nodecelerations seen . AROM at this time for moderate amount blood tinged fluid. Pitocin at 8cc/hr. Maternal BP mild range. On Magnesium for Seizure prophylaxis. Patient with adequate urinary output. CCM. Cx: defer FHP: defer FHT: Cat II [place]: not tracing well A/P: 1. IOL-PreEwSF: FHT [...] per RN FHP: defer FHT: Cat II [place]: q4min A/P: 1. IOL-PreEwSF: FHT Category II [...] note for details documented [facility] this [facility]01[facility] Hospital course Narrative* César Tran DO - 12/02/2022 12:32 PM EST Images from the original note were not included. Department of Obstetrics and Gynecology Delivery Discharge Summary Admission on 11/28/2022 12:24 AM Hospital course: Juhi Cope at 35w1d [facility] startedon Magnesium [facility] and [...] Information for the patient's : Francie Cope [[id number]] female 2425 g (5 lb 5.5 oz) Apgars: Information for the patient's : Francie Cope [[id number]] : : Girl Blood Type/Rh: O Antibody [...] Your Medications These medications were sent to [facility] [address] [place] [address] Hours: Sunday to Sunday 10 am to [...] [] Order the blood pressure log through [employer] [x] Place an office visit or telephone [...] of these occur. documented in this [facility]01-06-[facility] Note* Care Coordination - Christine Michelle [...] home. Denies any concerns at this time. [id number]* Care Coordination - Christine Michelle RN [...] home. Denies any concerns at this time. [id number] Miscellaneous Notes* Care Coordination - Christine Michelle [...] this pt. Due to: in [facility] breast pump, supplies kit, swabs [...] to check with LC in [facility] for smaller flange sizes * L&D Delivery Note - Irina Kramer DO - 11/30/2022 4:04 AM EST Images from the original note were not included. Vaginal Delivery Note Department of Obstetrics and Gynecology Patient: Juhi Cope : 1995 Date of delivery: 11/30/2022 Pre-operative Diagnosis: Juhi Mojica0 at 35w1d 1. <37 weeks 2. PreEwSF Post-operative Diagnosis: Live Born female Delivering Shirt Closer & Bulb Filler(s): Dr. Bowden; Dr. Kramer Information: Information for the patient's : Francie Cope [[id number]] Information for the patient's : Francie Cope [[id number]] Description: normal Meconium Noted: No Anesthesia: epidural [...] Clotilde Mg RN documented [facility] this [facility]01[facility] Obstetrics Note* Note - Ligia Bridges RN - 12/01/2022 9:00 AM EST 22.5mm flanges given to patient. Encouraged her to call for observation of pump session and smallerflanges. Martha in NICU to assist with personal pump. [facility] [id number] [facility] Discharge instructions* Discharge Instructions* Carol Bowden [...] as 8 weeks after delivery. Bleeding may cotton picking machine operator and then decrease again around [...] avoid constipation you may take a mild udtq-ubb-pwargmc stool softener (such as colace) as recommended [...] positive or a Person Under Investigation (PUI) Ovoprv-kc-lwkho transmission of COVID-19 during is unlikely, but after a baby is susceptible to ylzdjj-yn-lzxvhx spread. After your baby is born, your [...] clean your hands with an alcohol-based hand bass fisher that contains at least 60% alcohol. Clean your hands often Wash your hands often with soap and water for at least 20 seconds, especially after blowing your nose, coughing, or sneezing; going to the bathroom; and before eating or preparing food. If soap and water are not readily available, use an alcohol-based hand bass fisher with at least 60% alcohol, covering all [...] healthcare provider to call the local or [facility]. Persons who are placed underactive [...] isolation precautions should be made on a tjro-ky-yqpx basis, in consultation with healthcare providers and [...] respiratory tract signs and symptoms. Ways to [place] with Anxiety & Stress It is normal [...] an illness that was first found in [facility], in October 2019. It has [...] seen in people before. This virus spreads yavnip-jc-vbjbvi through droplets from coughing and sneezing. It [...] water aren't available, use an alcohol-based hand bass fisher. Call 911 anytime you think you may [...] of: February 25, 2020 Content Version: 12.4 Feeding Forward. Care instructions adapted under license by your [...] handles, desks, toilets, faucets, sinks) with household rolling mill plugger and EPA-registered disinfectants that are appropriate for [...] appropriate. These supplies include tissues, paper towels, rolling mill plugger and EPA-registered disinfectants (see list link at [facility] website). If a separate bathroom [...] be used for other purposes. Consult the air brake man's instructions for cleaning and disinfection products used. [...] used if appropriate for the surface. Follow air brake man's instructions for application and proper ventilation. Check [...] for harder to kill viruses. Follow the air brake man's instructions for all cleaning and disinfection products (e.g., concentration, application method and contact time, etc.). Soft (porous) surfaces such as carpeted floor, rugs, and drapes Remove visible contamination if present and clean with appropriate rolling mill plugger indicated for use on these surfaces. After cleaning: Launder items as appropriate in accordance with the air brake man's instructions. If possible, launder items using the [...] items as appropriate in accordance with the air brake man's instructions. If possible, launder items using the warmest appropriate water setting for the items and dry items completely. Dirty laundry from an ill person can be washed with other people's items. Clean and disinfect clothes hampers according to guidance above for surfaces. If possible, considerplacing a baggage inspector that is either disposable (can be thrown away) or can be laundered. [facility] has a list of EPA approved cleaning products on their website - https://www.cdc.gov/coronavirus/ 2019-ncov/community/home/cleaning-disinfection.html https://www.[employer]/Essbc-Bmcbjhncsmt-Eiecbqvu-Products-List.pdf Granular with delivery and cotton picking machine operator services: [employer]: Free cotton picking machine operator at locations Delivery is $12.95 a month Website - [employer] [place]: Solid Waste Facility Operator $2.95 (1st order is free) Delivery is $14.95 Website - [employer] (Mobile Payments) [place]: bankruptcy judge is free Delivery is $5.95 Website [employer]: bankruptcy judge is $4.95 Delivery is $9.95 Website [employer]: bankruptcy judge is $4.95 Delivery is $9.95 Website leemail [employer]: Can be ordered for delivery and cotton picking machine operator with [employer] website Website - www.[employer] Managment [employer]: Free deliver for first 3 orders of $35 or more Website - aldiExecMobile Will deliver from [employer], [employer], [employer], and [employer]. Annual membership is $99 Monthly membership is $14 * Attachments The following attachments cannot be sent through Care Everywhere. * Preeclampsia Discharge Instructions (Mauritanian) documented in this [facility]01-05[facility] Obstetrics Note* Note - Sheila Harrell RN - 11/30/2022 10:37 AM EST Swabs given to patient and educated how to use and to bring to [facility] [id number] Obstetrics Note* Note - Sheila Harrell RN - 11/30/2022 10:30 AM EST Breast pump use indicated for this pt. Due to: in [facility] Hospital breast pump, supplies kit, swabs [...] patient to check with in [facility] for smaller flange sizes [facility] [id number] NotePatient: Juhi Cope Procedure Summary Date: 11/29/22 [...] PreEwSF Post-operative Diagnosis: Live Born female Delivering Shirt Closer & Bulb Filler(s): Dr. Bowden; Dr. Kramer Information: Information for the patient's : Francie Cope [[id number]] Information for the patient's : Francie Cope [[id number]] Description: normal Meconium Noted: No Anesthesia: epidural [...] surgery as described in the resident note. [facility] [id number] NoteEpidural Block Time Out: 11/29/2022 6:17 PM Patient location during procedure: OB Start time: 11/29/2022 6:18 PM End time: 11/29/2022 6:45 PM Reason for block: labor analgesia Staffing Performed: LINE MAINTENANCE TECHNICIAN Resident/LINE MAINTENANCE TECHNICIAN: Jimmie Kaur APRN - LINE MAINTENANCE TECHNICIAN Preanesthetic Checklist Completed: patient identified, IV checked, [...] to make cervical change. Clotilde Mg RN [facility] [id number] NotePatient: Juhi Cope Procedure Information Date: 11/28/22 [...] products. patient is not NPO [facility] NoteLabor Progress Note Date: 11/28/2022 Time: [...] and reassuring. CCM. Cx:-3 FHT: Cat 1 [place]:q3-4 min A/P: 1. IOL-PreEwSF. FHT 130 baseline, with moderate variability, Accelerations present Yes, and rare late deceleration . Cervical exam unchanged. Cytotec x4 placed at this time. Patient intermittently feeling contractions. BP mild range. Cx: 1--3 FHP: defer FHT: Cat I [place]: a3-4min A/P: 1. IOL-PreEwSF: FHT Category I, [...] Cx: unchanged FHP: defer FHT: Cat I [place]: q4min A/P: 1. IOL-PreEwSF: FHT Category I, [...] 11/29/2022 6:17 AM Cx:1-2/60/-3 FHT: Cat I [place]:q4-5mins A/P: 1. IOL-PreEwSF: Cat I FHT with [...] per protocol. CCM. Cx:defer FHT: Cat I [place]:q4-6mins A/P: 1. IOL-PreEwSF: Cat I FHT with baseline 120, moderate variability, spontaneous accelerations, and no decelerations. BP normotensive to mild range since last note time. Pitocin @ 2 cc/hr, continue to titrate per protocol. Magnesium sulfate running for seizure prophylaxis, UOP 400 ml over past 4 hours. CCM. Cx:defer FHT: Cat I [place]:q4-5mins A/P: 1. IOL-PreEwSF: Cat I FHT with baseline 135, moderate variability, spontaneous accelerations, and no decelerations. BP normotensive to mild range since last note time. Pitocin @ 6 cc/hr, continue to titrate per protocol. Magnesium sulfate running for seizure prophylaxis, UOP 600 ml over past 4 hours. Will plan for AROM soon. CCM. Cx:defer FHT: Cat I [place]:irritability A/P: 1. IOL-PreEwSF: Pit @ 8 mu/min. Patient resting comfortably and only irritability tracing on toco. BP most recently mild range. On magnesium sulfate for seizure prophylaxis. UOP adequate. Continue magnesium and continue to titrate pitocin per protocol. Plan for AROM once patient rudi more regularly. Electronically signed by Cortney Velasquez DO 11/29/2022 4:21 PM Cx:/-3 FHT: Cat 1 [place]:Not tracing A/P: 1. IOL-PreEwSF. FHT 135 baseline, with moderate variability, Accelerations present Yes, and no decelerations seen . AROM at this time for moderate amount blood tinged fluid. Pitocin at 8cc/hr. Maternal BP mild range. On Magnesium for Seizure prophylaxis. Patient with adequate urinary output. CCM. Cx: defer FHP: defer FHT: Cat II [place]: not tracing well A/P: 1. IOL-PreEwSF: FHT [...] 34w6d Is this patient being delivered between 91m5u-74g6a weeks with an acceptable medical indication (obstetric, maternal, and/or )? NA: Not Applicable: This patient is being delivered outside of the PC-01 range (62j8h-41t0o) for reasons indicated in the medical record. [...] 34w6d Is this patient being delivered between 59t8e-64l3k weeks with an acceptable medical indication (obstetric, maternal, and/or )? NA: Not Applicable: This patient is being delivered outside of the PC-01 range (58y8m-19y8j) for reasons indicated in the medical record. [...] plan. Cassie Constantino MD 11/28/2022, 12:48 AM [facility] [id number] History and physical note* Cassie Constantino MD [...] 34w6d Is this patient being delivered between 88j5x-12t0t weeks with an acceptable medical indication (obstetric, maternal, and/or )? NA: Not Applicable: This patient is being delivered outside of the PC-01 range (58z8q-34q4k) for reasons indicated in the medical record. [...] 11/28/2022, 12:48 AM documented in this [facility]01-02-[facility] Evaluation + Plan note Extracted from:Title:OB High Risk Antepartum Visit *Author:Fredi DORSEY MD Date:11/27/22 Impression and Plan Diagnosis 34 weeks 5 days. Preeclampsia. contractions. Maternal tachycardia.. Course: Worsening, New onset headache may be a signal of worsening symptoms of preeclampsia.. Orders I discussed this case with the maternal- medicine department at [facility] in [facility], Dr. Thea Nieves, she accepted to transfer due to preeclampsia. Plan: Magnesium sulfate per protocol, betamethasone, transfer arrangements are in progress..[facility]08-19-2022 Evaluation + Plan note Extracted [...] Colace and Proctofoam and follow-up with her METAL WORKER physician in the outpatient setting. She is provided with a note for work. Additional diagnosis: Constipation, UTI and [facility]08-19-2022 Hospital Discharge instructions Follow Up Care 07/14/2022 06:07:36 With:Denny Meza Address:Unknown When:07/17/2022 07:24:48 With:DENNY RODRÍGUEZ Address: [address] [place] [place] [address] Business (1) When:Within 3 Day(s) [facility]08-19-2022 Hospital Discharge instructions Follow Up Care 07/14/2022 04:40:16 With:Denny Meza Address: [address], [address] [place] [address]- Business (1) When:07/17/2022 Comments:Appointment has already been scheduledCall Dr if fever>100.5 F, heavy bleedingCall for any problems.Call for severe abdominal painCall physician for heavy vaginal bleedingCall physician if symptoms worsenPlease call if you need to rescheduleReturn for contractions closer, longer, harderReturn ifruptured membranes or vaginal bleeding [facility]05-31-2022 Evaluation + Plan note Diagnostic Tests Pending * Hnjwd-3-Uvemcuzrlsc 04/25/22 * NIGEL w/Reflex if POS 04/25/22 * Ceruloplasmin 04/25/22 * HCV Antibody RFX to Quant PCR 04/25/22 * HBV Core Ab 04/25/22 * Hepatitis B Surface Antibody 04/25/22 * Hepatitis B Surface Antigen 04/25/22 * Smooth Muscle Antibody Screen 04/25/22 [facility]05-24-2022 Evaluation note* Encounter Date Diagnosis Assessment Notes Treatment Notes Treatment Clinical Notes March, Elevated liver function tests (I CD-10 - R79.89) LABS INDICATED ABOVE iCurrent Other Evaluation note* Diagnosis Pelvic pain in female- Primary Unspecified symptom associated with female genital organs [facility] Diagnosis Chronic pelvic pain in female- Primary Unspecified symptom associated with female genital organs Constipation, unspecified constipation type High-tone pelvic floor dysfunction Other specified disorders of female genital organs Diastasis of rectus abdominis Dysmenorrhea Other specified dyspareunia [facility]* Diagnosis Endometriosis- Primary Endometriosis, site unspecified Pelvic and perineal pain Unspecified symptom associated with female genital organs [facility]* Diagnosis Pelvic pain in female- Primary Unspecified symptom associated with female genital organs [facility]* Diagnosis Pelvic pain in female- Primary Unspecified symptom associated with female genital organs documented in this encounter [facility] note* Diagnosis High-tone pelvic floor dysfunction- Primary Other specified disorders of female genital organs Chronic pelvic pain in female Unspecified symptom associated with female genital organs documented in this encounter [facility] note* Diagnosis Pelvic and perineal pain Unspecified symptom associated with female genital organs documented in this encounter [facility] note* Diagnosis Menorrhagia with regular cycle Pelvic pain in female Unspecified symptom associated with female genital organs Uses control [facility] Diagnosis Preeclampsia, severe, third trimester- Primary Preeclampsia, severe, third trimester [facility]* Diagnosis Pre-eclampsia, severe, delivered- Primary [facility]* Diagnosis Dysmenorrhea, unspecified documented [facility]* Diagnosis Well woman exam with routine gynecological exam Routine gynecological examination [facility] Diagnosis Hypertension, unspecified type (CMS/HCC)- Primary Paroxysmal tachycardia, unspecified (CMS/HCC) Paroxysmal tachycardia, unspecified Chronic right shoulder pain Pain in joint, shoulder region Scapular dyskinesis Lack of coordination [facility]* Diagnosis Pain in female genitalia on intercourse Dyspareunia Endometriosis Endometriosis, site unspecified documented in this encounter [facility] Healthcare[facility] noteNo assessment information availableMemorial [facility] Work Phone: Evaluation note* Diagnosis Missed menses , unspecified gestational age Encounter for supervision of normal first in first trimester [facility]* Diagnosis Nonintractable episodic headache, unspecified headache type- Primary Second trimester ([facility]) state, incidental 13 weeks gestation of ([facility]) [facility]* Diagnosis Sinusitis, unspecified chronicity, unspecified location- Primary Second trimester ([facility]) state, incidental 17 weeks gestation of ([facility]) Screening, , for anatomic survey ([facility]) Encounter for anatomic survey documented [facility]* Diagnosis 20 weeks gestation of ([facility]) Second trimester ([facility]) state, incidental Diabetes mellitus screening Screening for diabetes mellitus [facility]* Diagnosis Wellness examination- Primary Hypertension, unspecified type Lipid screening Screening for lipoid disorders [facility]* Diagnosis Wellness examination- Primary Hypertension, unspecified type Lipid screening Screening for lipoid disorders 24 weeks gestation of ([facility]) Second trimester ([facility]) state, incidental Elevated glucose tolerance test Impaired glucose tolerance test [facility]* Diagnosis Gestational diabetes mellitus (GDM) in second trimester, gestational diabetes method of control unspecified [facility] Diagnosis Wellness examination- Primary Hypertension, unspecified type Lipid screening Screening for lipoid disorders 26 weeks gestation of ([facility]) Second trimester ([facility]) state, incidental induced hypertension, antepartum ([facility]) Transient hypertension of , antepartum Gestational diabetes mellitus (GDM) in second trimester, gestational diabetes method of control unspecified ([facility]) [facility]* Diagnosis Wellness examination- Primary Hypertension, unspecified type Lipid screening Screening for lipoid disorders Hypertension affecting , antepartum ([facility])- Primary 27 weeks gestation of ([facility]) Second trimester ([facility]) state, incidental [facility]* Diagnosis Diet controlled gestational diabetes mellitus (GDM) in second trimester- Primary Essential hypertension affecting in third trimester [facility] Diagnosis 28 weeks gestation of - Primary Insulin controlled gestational diabetes mellitus (GDM) in second trimester Essential hypertension affecting in third trimester [facility] Diagnosis Essential hypertension affecting in third trimester [facility] Diagnosis Wellness examination- Primary Hypertension, unspecified type Lipid screening Screening for lipoid disorders 29 weeks gestation of ([facility]) Third trimester ([facility]) state, incidental Hypertension affecting , antepartum ([facility]) Gestational diabetes mellitus (GDM), antepartum, gestational diabetes method of control unspecified([facility]) documented in [facility]* Diagnosis Insulin controlled gestational diabetes mellitus (GDM) in third trimester- Primary Essential hypertension affecting in third trimester [facility]* Diagnosis Insulin controlled gestational diabetes mellitus (GDM) in second trimester [facility]* Diagnosis Insulin controlled gestational diabetes mellitus (GDM) in second trimester [facility]* Diagnosis Wellness examination- Primary Hypertension, unspecified type Lipid screening Screening for lipoid disorders Third trimester ([facility]) state, incidental 31 weeks gestation of ([facility]) Pre-eclampsia in third trimester (HHS-HCC) documented in this encounter [facility] HealthcareEvaluation note* Diagnosis Insulin controlled gestational diabetes mellitus (GDM) in third trimester- Primary Essential hypertension affecting in third trimester [facility] Narrative - Reported* Type Description Date Medical History headache Surgical HistoryappendectomySurgical Historyshoulder surgerySurgical History endometriosis [facility] [facility] Other History of Present illness Narrative* 26 [...] engaged x 1 year * working at [employer] in [place] [address] Work Phone: Hospital course Narrative No data available for this section [facility] No data available for this section [facility] HospitalInstructionsNot on filedocumented in this encounter [facility]ructionsNot on filedocumented in this encounter [facility] SystemInstructionsNot on filedocumented in this encounter [facility] SystemInstructionsNot on filedocumented in this encounter [facility]ructions* Attachments The following attachments cannot be sent through Care Everywhere. * Preeclampsia (Mauritanian) documented in this encounterProMedica Health SystemInstructionsNot on file documented in this encounterProMedica Health SystemInstructionsNot on file documented in this encounterProMedica Health SystemInstructionsNot on file documented in this encounterProMedica Health SystemInstructionsNot on file documented in this encounterProMedica Health SystemProgress note No data available for this section [facility] HospitalReason for visit NarrativePT HERE AT REQUEST OF DR RODRÍGUEZ FOR EVALUATION AND TREATMENT OF ELVATED LIVER FUNCTION- ( DR. SAMUEL PT), LABS FROM DR RODRÍGUEZ REVIEWED BY DR Iraheta Tr[employer] Other Summary Purpose Family History Unknown Family [...] Bilateral ureterolysis Surgeon: Dr. Charlene Rodriguez Resident/Fellow/Other Bulb Filler: Glory Palacio Anesthesia: general I.V. 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 Reason for Referral SpecialtyDiagnoses / ProceduresReferred By ContactReferred To ContactMR IMAGING Diagnoses Pelvic and perineal pain Procedures MRI FEMALE PELVIS WO/W IVCON MRI PELVIS W/O & W/CONTRAST MATERIAL Charlene Rodriguez DO [address] [facility] [address] [place] [address] Mr Imaging Referral IDStatusReasonThomson DateExpiration DateVisits RequestedVisits [id number] Auto-Generated Referral /[id number] / ProceduresReferred By ContactReferred To [facility] Diagnoses Constipation, unspecified constipation type High-tone pelvic floor dysfunction Diastasis of rectus abdominis Dysmenorrhea Other specified dyspareunia Chronic pelvic pain in female Procedures CONSULT TO PHYSICAL THERAPY PHYSICAL THERAPY EVALUATION HIGH COMPLEX 45 MINS Jihan Downs, MEDICAL RECORDS TECHNICIAN.BUSINESS MAIL ENTRY CLERK [address] [facility] [address] [place] [address] [facility] [place] [address] [place] [id number] Referral IDStatLulacaterina DateExpiration DateVisits RequestedVisits [id number] Review Auto-Generated Referral / Chief Complaint and Reason for Visit Chief Complaint Admit Date N94.10 N80.9 February 02, 2025 3:1 6pm Additional Source Comments INFORMATION SOURCE (unrecogn ized section and content) DATE CREATED AUTHOR 10/26/2020 [facility] DATE CREATED AUTHOR AUTHOR'S ORGANIZ ATION 11/06/2020 [facility] DATE CREATED AUTHOR AUTHOR'S ORGANIZ ATION 12/17/[address] [facility] DATE CREATED AUTHOR AUTHOR'S ORGANIZ ATION 04/21/2021 [facility] DATE CREATED AUTHOR AUTHOR'S ORGANIZ ATION 06/05/2021 [facility] DATE CREATED AUTHOR AUTHOR'S ORGANIZ ATION 10/02/2021 [facility] DATE CREATED AUTHOR AUTHOR'S ORGANIZ ATION 02/10/2022 [facility] DATE CREATED AUTHOR AUTHOR'S ORGANIZ ATION 12/05/2022 [facility] DATE CREATED AUTHOR AUTHOR'S ORGANIZ ATION 04/30/2024 [facility] DATE CREATED AUTHOR AUTHOR'S ORGANIZ ATION 02/09/2025 [facility] DATE CREATED AUTHOR AUTHOR'S ORGANIZ ATION 03/15/2025 [facility] DATE CREATED AUTHOR AUTHOR'S ORGANIZ ATION 08/03/2025 [facility] DATE CREATED AUTHOR AUTHOR'S ORGANIZ ATION 08/13/2025 [facility] DATE CREATED AUTHOR AUTHOR'S ORGANIZ ATION 08/16/2025 [facility] DATE CREATED AUTHOR AUTHOR'S ORGANIZ ATION 08/20/2025 [facility] DATE CREATED AUTHOR AUTHOR'S ORGANIZ ATION 08/21/2025 [facility] DATE CREATED AUTHOR AUTHOR'S ORGANIZ ATION 08/29/2025 [facility] DATE CREATED AUTHOR AUTHOR'S ORGANIZ ATION 09/12/2025 [facility] DATE CREATED AUTHOR AUTHOR'S ORGANIZ ATION 10/02/2025 [facility] DATE CREATED AUTHOR AUTHOR'S ORGANIZ ATION 10/08/2025 [facility] Care Team (unrecognized sect ion and content) Team MemberRelationshipSpecialtyStart DateEnd Date Denny Rodríguez MD [address] [place] [address] PCP - GeneralFamily Medicine12/03/14Team MemberRelationshipSpecialtyStart DateEnd Date Denny Rodríguez MD [address] [place] [address] PCP - GeneralFamily Medicine12/03/14Team MemberRelationshipSpecialtyStart DateEnd Date Denny Rodríguez MD [address] [place] [address] PCP - GeneralFamily Medicine12/03/14Team MemberRelationshipSpecialtyStart DateEnd Date Denny Rodríguez MD [address] [place] [address] PCP - GeneralFamily Medicine12/03/14Team MemberRelationshipSpecialtyStart DateEnd Date Denny Rodríguez MD [address] [place] [address] PCP - GeneralFamily Medicine12/03/14Team MemberRelationshipSpecialtyStart DateEnd Date Denny Rodríguez MD [address] [place] [address] PCP - GeneralFamily Medicine12/03/14Team MemberRelationshipSpecialtyStart DateEnd Date Denny Rodrgíuez MD [address] [place] [address] PCP - GeneralFamily Medicine12/03/14Team MemberRelationshipSpecialtyStart DateEnd Date Denny Rodríguez MD [address] [place] [address] PCP - GeneralFamily Medicine12/03/14Team MemberRelationshipSpecialtyStart DateEnd Date Denny Rodríguez MD [address] [place] [address] PCP - GeneralFamily Medicine12/03/14Team MemberRelationshipSpecialtyStart DateEnd Date Denny Rodríguez MD [address] [place] [address] [facility] - [facility]12/03/14Team MemberRelationshipSpecialtyStart DateEnd Date Denny Rodríguez MD [address] [place] [address] PCP - [place] Cfrysyaezg20/1/21 Denny Rodríguez MD [address] [place] [address] PCP - GeneralFamdly Medicine04/10/23 Denny Rodríguez MD [address] [place] [address] PCP - [facility]02/24/23 Zenobia East NP [address] [place] [address] Nurse [facility]10/05/23 Trista Thao NP [address] [place] [address] Nurse PractitionerPulmonary Jodkusi05/10/23Team MemberRelationshipSpecialtyStart DateEnd Date Denny Rodríguez MD [address] [place] [address] PCP - GeneralFamily Medicine12/03/14Team MemberRelationshipSpecialtyStart DateEnd Date Denny Rodríguez MD [address] [place] [address] P[facility] - [facility]Gr[facility]ally [facility]12/03/14Team MemberRelationshipSpecialtyStart DateEnd Date Denny Rodríguez MD [address] [place] [id number] PCP - [place] Ywqmvphpxn91/1/21 Denny Rodríguez MD [address] [place] [facility]70 PCP - [facility]02/24/23 Eliceo Beltran DO [address] [place] [address] PCP - Generalmily Medicine02/14/24Team MemberRelationshipSpecialtyStart DateEnd Date Denny Rodríguez MD [address] [place] [address] PCP - [place] Ikapkoiass65/1/21 Denny Rodríguez MD [address] [place] [address] PCP - [facility]02/24/23 Eliceo Beltran DO [address] [place] [address] PCP - [facility] Medicine02/14/24Team MemberRelationshipSpecialtyStart DateEnd Date Denny Rodríguez MD [address] [place] [address] PCP - [place] Vcfpallitc90/1/21 Denny Rodríguez MD [address] [place] [address] PCP - [facility]02/24/23 Eliceo Beltran DO [address] [place] [address] PCP - [facility]02/14/24Team MemberRelationshipSpecialtyStart DateEnd Date Denny Rodríguez MD [address] [place] [address] PCP - [place] Tkeaaixjvv15/1/21 Denny Rodríguez MD [address] [place] [address] PCP - [facility]02/24/23 Eliceo Beltran DO [address] [place] [address] PCP - [facility]02/14/24Team MemberRelationshipSpecialtyStart DateEnd Date Denny Rodríguez MD [address] [place] [address] PCP - [place] Dyuexkhixp56/1/21 Denny Rodríguez MD [address] [place] [address] PCP - [facility]02/24/23 Eliceo Beltran DO [address] [place] [address] PCP - GeneralFamily Medicine02/14/24Team MemberRelationshipSpecialtyStart DateEnd Date Denny Rodríguez MD [address] [place] [address] PCP - [place] Qjebqcdrip73/1/21 Eliceo Beltran DO [address] [place] [address] PCP - Generalmily Medicine02/14/24Team MemberRelationshipSpecialtyStart DateEnd Date Eliceo Beltran DO [address] [place] [address] PCP - GeneralFamily Medicine02/14/24Team MemberRelationshipSpecialtyStart DateEnd Date Eliceo Beltran DO [address] [place] [address] PCP - Generalmily Medicine02/14/24 Team Status: Active Member Role Status Dates Denny Rodríguez MD Primary Care Provider Active Team Status: Inactive Member Role Status Dates Denny Rodríguez MD Primary Care Provider Active S tart: February 02, 2025 End: February 02aminta Pop DOAttending ProviderActiveStart: February 02, 2025 End: February 02, 2025Team MemberRelationshipSpecialtyStart DateEnd Date Eliceo Beltran DO [address] [place] [address] PCP - [facility] Medicine02/14/24 Eilceo Beltran DO [address] [place] [address] PCP - Medical [employer]07/27/2412Team MemberRelationshipSpecialty Start DateEnd Date Eliceo Beltran DO [address] [place] [address] PCP - [facility] Medicine02/14/24 Eliceo Beltran DO [address] [place] [address] PCP - Medical [employer]07/27/2412Team MemberRelationshipSpecialty Start DateEnd Date Eliceo Beltran DO [address] [place] [address] PCP - [facility] Medicine02/14/24 Eliceo Beltran DO [address] [place] [address] PCP - Medical [employer]07/27/2412Team MemberRelationshipSpecialty Start DateEnd Date Eliceo Beltran DO [address] [place] [address] PCP - [facility] Medicine02/14/24 Eliceo Beltran DO [address] [place] [address] PCP - Medical [employer]07/27/2412Te MemberRelationshipSpecialty Start DateEnd Date Eliceo Beltran, DO [address] [place] [address] PCP - [facility] Medicine02/14/24 Eliceo Beltran, DO [address] [place] [address] PCP - Medical [employer]07/27/2412Team MemberRelationshipSpecialty Start DateEnd Date Eliceo Beltran, DO [address] [place] [address] PCP - [facility] Medicine02/14/24 Eliceo Beltran, DO [address] [place] [address] PCP - Medical [employer]07/27/2412Team MemberRelationshipSpecialty Start DateEnd Date Eliceo Beltran, DO [address] [place] [address] PCP - [facility] Medicine02/14/24 Eliceo Beltran, DO [address] [place] [address] PCP - Medical [employer]07/27/2412Te MemberRelationshipSpecialty Start DateEnd Date Eliceo Beltran, DO [address] [place] [address] PCP - Generalmily Medicine02/14/24 Eliceo Beltran, [address] [place] [address] PCP - Medical [employer]07/27/2412Team MemberRelationshipSpecialty Start DateEnd Date Eliceo Beltran DO [address] [place] [address] PCP - [facility] Medicine02/14/24 Eliceo Beltran, [address] [place] [address] PCP - Medical [employer]07/27/2412Team MemberRelationshipSpecialty Start DateEnd Date Eliceo Beltran DO [address] [place] [address] PCP - [facility] Medicine02/14/24 Eliceo Beltran DO [address] [place] [address] PCP - Medical [employer]07/27/2412Team MemberRelationshipSpecialty Start DateEnd Date Eliceo Beltran DO [address] [place] [address] PCP - [facility] Medicine02/14/24 Eliceo Beltran DO [address] [place] [address] PCP - Medical [employer]07/27/2412Team MemberRelationshipSpecialty Start DateEnd Date Denny Rodríguez MD [address] [place] [address] PCP - [facility] Medicine12/02/18 MemberRelationshipSpecialtyStart DateEnd Date Denny Rodríguez MD [address] [place] [address] PCP - [facility] Medicine12/02/18 MemberRelationshipSpecialtyStart DateEnd Date Eliceo Beltran, DO [address] [place] [address] PCP - [facility]02/14/24 Eliceo Beltran, DO [address] [place] [address] PCP - Medical [employer]07/27/2412Te MemberRelationshipSpecialty Start DateEnd Date Eliceo Beltran, DO [address] [place] [address] PCP - [facility]02/14/24 Eliceo Beltran, DO [address] [place] [address] PCP - Medical [employer]07/27/2412Te MemberRelationshipSpecialty Start DateEnd Date Eliceo Beltran, DO [address] [place] [address] PCP - [facility]02/14/24 Eliceo Beltran, DO [address] [place] [address] PCP - Medical [employer]07/27/2412Team MemberRelationshipSpecialty Start DateEnd Date Eliceo Beltran DO [address] [place] [address] PCP - GeneralFamily Medicine02/14/24 Eliceo Beltran DO [address] [place] [address] PCP - Medical [employer]07/27/2412Team MemberRelationshipSpecialty Start DateEnd Date Denny Rodríguez MD [address] [place] [address] PCP - GeneralFamily Medicine12/02/18Team MemberRelationshipSpecialtyStart DateEnd Date Eliceo Beltran DO [address] [place] [address] PCP - GeneralFamily Medicine02/14/24 Eliceo Beltran DO [address] [place] [address] PCP - Medical [employer]07/27/2412Team MemberRelationshipSpecialty Start DateEnd Date Eliceo Beltran DO [address] [place] [address] PCP - GeneralFamily Medicine02/14/24 Eliceo Beltran DO [address] [place] [address] PCP - Medical [employer]07/27/2412Team MemberRelationshipSpecialty Start DateEnd Date Denny Rodríguez MD [address] [place] [address] PCP - Generalmily Medicine12/02/18Team MemberRelationshipSpecialtyStart DateEnd Date Denny Rodríguez MD [address] [place] [address] [facility]12/02/18Team MemberRelationshipSpecialtyStart DateEnd Date Eliceo Beltran DO [address] [place] [address] [facility]02/14/24 Eliceo Beltran DO [address] [place] [address] PCP - Medical [employer]07/27/2412Team MemberRelationshipSpecialty Start DateEnd Date Eliceo Beltran DO [address] [place] [address] PCP - [facility] Medicine02/14/24 Eliceo Beltran DO [address] [place] [address] PCP - Medical [employer]07/27/2412Team MemberRelationshipSpecialty Start DateEnd Date Denny Rodríguez MD [address] [place] [address] [facility]12/02/18Team MemberRelationshipSpecialtyStart DateEnd Date Denny Rodríguez MD [address] [place] [address] PCP - GeneralFamily Medicine12/02/18Team MemberRelationshipSpecialtyStlowndesboro DateEnd Date Denny Rodríguez MD [address] [place] [address] PCP - [place] Zdahulpefp90/1/ Denny Rodríguez MD [address] [place] [address] PCP - GeneralFamily Medicine Denny Rodríguez MD [address] [place] [address] PCP - [facility] Eliceo Beltran DO [address] [place] [address] [facility] - [facility]02/14/24 Eliceo Beltarn DO [address] [place] [address] PCP - Medical [employer]07/27/2412 Zen[facility] NP [address] [place] [address] Nurse PractitionerFamily Hsymtpdd61/10/235 Trista Thao NP [address] [place] [address] Nurse PractitionerPulmonary Vifqqbz84/10/235Team MemberRelationship SpecialtyStart DateEnd Date Eliceo Beltran DO [address] [place] [address] PCP - GeneralFamily Medicine02/14/24 Eliceo Beltran [address] [place] [address] PCP - Medical [employer]07/27/2412Team MemberRelationshipSpecialty Start DateEnd Date Denny Rodríguez MD [address] [place] [address] PCP - GeneralFamily Medicine12/02/18 Source Comments (unrecognize d section and content) In the event this informatio n is protected by the Federal Confidentiality of Alcohol and Drug Abuse Patient Records regulations: The Federal rules restrict any use of the information to criminally investigate or prosecute any alcohol or drug abuse patient.[facility] Hospital[facility] the event this information is protected by the Federal Confidentiality of Alcohol and Drug Abuse Patient Records regulations: The Federal rules restrict any use of the information to criminally investigate or prosecute any alcohol or drug abuse patient.[facility] HospitalIn the event this information is protected by the Federal Confidentiality of Alcohol and Drug Abuse Patient Records regulations: The Federal rules restrict any use of the information to criminally investigate or prosecute any alcohol or drug abuse patient.[facility] HospitalIn the event this information is protected by the Federal Confidentiality of Alcohol and Drug Abuse Patient Records regulations: The Federal rules restrict any use of the information to criminally investigate or prosecute any alcohol or drug abuse patient.[facility] HospitalIn the event this information is protected by the Federal Confidentiality of Alcohol and Drug Abuse Patient Records regulations: The Federal rules restrict any use of the information to criminally investigate or prosecute any alcohol or drug abuse patient.[facility] HospitalIn the event this information is protected [...] or prosecute any alcohol or drug abuse patient.[facility] HospitalIn the event this information is protected by the Federal Confidentiality of Alcohol and Drug Abuse Patient Records regulations: The Federal rules restrict any use of the information to criminally investigate or prosecute any alcohol or drug abuse patient.[facility] HospitalIn the event this information is protected by the Federal Confidentiality of Alcohol and Drug Abuse Patient Records regulations: The Federal rules restrict any use of the information to criminally investigate or prosecute any alcohol or drug abuse patient.[facility] HospitalIn the event this information is protected by the Federal Confidentiality of Alcohol and Drug Abuse Patient Records regulations: The Federal rules restrict any use of the information to criminally investigate or prosecute any alcohol or drug abuse patient.[facility] HospitalIn the event this information is protected by the Federal Confidentiality of Alcohol and Drug Abuse Patient Records regulations: The Federal rules restrict any use of the information to criminally investigate or prosecute any alcohol or drug abuse patient.[facility] HospitalIn the event this information is protected by the Federal Confidentiality of Alcohol and Drug Abuse Patient Records regulations: The Federal rules restrict any use of the information to criminally investigate or prosecute any alcohol or drug abuse patient.[facility] HospitalIn the event this information is protected by the Federal Confidentiality of Alcohol and Drug Abuse Patient Records regulations: The Federal rules restrict any use of the information to criminally investigate or prosecute any alcohol or drug abuse patient.[facility] HospitalIn the event this information is protected by the Federal Confidentiality of Alcohol and Drug Abuse Patient Records regulations: The Federal rules restrict any use of the information to criminally investigate or prosecute any alcohol or drug abuse patient.[facility] HospitalIn the event this information is protected by the Federal Confidentiality of Alcohol and Drug Abuse Patient Records regulations: The Federal rules restrict any use of the information to criminally investigate or prosecute any alcohol or drug abuse patient.[facility] Reason for Visit (unrecogniz ed section and content) ReasonCommentsMenstrual ProblemReasonCommentsVaginal BleedingReasonComments EndometriosisReasonCommentsInsurance AuthorizationOrilissaReasonCommentsPelvic PainSpecialtyDiagnoses / ProceduresReferred By ContactReferred To ContactOB/METAL WORKER / GYNECOLOGY Diagnoses Painful menstrual periods Painful Periods Procedures OFFICE/OUTPATIENT ESTABLISHED SF MDM 10-19 MIN EST WHI PATIENT Jihan Downs, MEDICAL RECORDS TECHNICIAN.BUSINESS MAIL ENTRY CLERK [address] [place] [id number] Jihan Downs, MEDICAL RECORDS TECHNICIAN.BUSINESS MAIL ENTRY CLERK [address] [place] [id number] Referral IDStatusReasonStart DateExpiration DateVisits RequestedVisits [id number] MRI SpecialtyDiagnoses / ProceduresReferred By ContactReferred To ContactMR IMAGING Diagnoses Pelvic and perineal pain Procedures MRI FEMALE PELVIS WO/W IVCON MRI PELVIS W/O & W/CONTRAST MATERIAL Charlene Rodriguez DO [address] [facility] [address] [place] [address] Mr Imaging [place] [address] Referral IDStatusReasonStart DateExpiration DateVisits RequestedVisits [id number] Auto-Generated Referral /[id number] DateCommentsRefill Yjemefo8601/02/2024eason CommentsMenorrhagiaCramping with bleedingReasonCommentsSurgery Cancelled SpecialtyDiagnoses / ProceduresReferred By ContactReferred To Contact Diagnoses Preeclampsia, severe, third trimester Procedures O14.13 - Preeclampsia, severe, third trimester Kathe Ryder, [address] [place] [address] [facility] [address] [place] [address] Referral IDStatusReasonStart DateExpiration DateVisits RequestedVisits [id number] Pressure CheckReasonCommentsDysmenorrhea ReasonCommentsWell Women VisitReasonCommentsShoulder PainReasonCommentsPainful IntercourseReasonCommentsAmenorrheaReasonCommentsRoutine VisitReason CommentsGestational DiabetesSpecialtyDiagnoses / ProceduresReferred By Contact Referred To ContactMaternal and Medicine Diagnoses Gestational diabetes mellitus (GDM) in second trimester, gestational diabetes method of control unspecified Nathan Pop, DO [address] [place] [address] [place] [address] Phone: tel: fax: Maternal- Medicine at [facility] [address] [place] [address] Phone: tel: fax: Referral IDStatusReasonStart DateExpiration DateVisits RequestedVisits [id number] Review Specialty Services Required /[id number] consult Scheduled Active and Recently Administ ered [...] * 1502 (New Bag - Provider: Alejandra Arocs RN) * 0112 (New Bag - Provider: [...] every 2-3 minutes with cervical changes or Shubuta units (MVU) greater than 200 in a [...] BE BASED ON THE PRIMARY CLINICAL RECORDS. [employer] provides no warranty or guarantee of the accuracy or completeness of information in this document.
--- OUTSIDE RECORDS SUMMARY | 2025-10-17 08:09 | XMS_ITS | Encounter Summary ---
Author Organization [facility] Address [address] [place] [address] Care Team Providers Care Triage Technician Name Role Phone Eliceo Beltran DO Primary Care Provider [phone] CharlottegeovaniEliceo kauffman Unavailable [phone] Encounter Details DateTypeDepartmentCare Team (Latest Contact Info)Gwdzhegspgb90/08/2025Clinisync Result Encounter [facility] External Department Unsolicited Steph Keane, DEVYN [address] [facility] [place] [address] Social History Tobacco UseTypesPacks/DayYears UsedDateSmoking Tobacco: NeverSmokeless Tobacco: NeverAlcohol UseStandard Drinks/WeekCommentsNever0 (1 standard drink = 0.6 oz pure alcohol)caffeine: 1-2 cups per day, coffee and [id number] Health Literacy AnswerDate RecordedHow often do you [...] week12/29/2024How often do you attend jainism or hinduism services?Patient cgxxzqog35/03/2025Do you belong to any clubs or organizations such as jainism groups, unions, [employer] or athletic leodan ups, or school groups?No12/29/2024How often do you attend meetings of the clubs or organizations you belong to?Patient egfkfoim09/03/2025re you , , , , never , [...] Health Questionnaire-2 Score0 07/30/2025[facility] [place] of Occupational Health - Occupational Stress QuestionnaireAnswerDate RecordedDo you feel stress - tense, restless, nervous, or anxious, or unable to sleep at night because yourmind is troubled all the time - these days?Only a skujcz4012/29/2024Exercise Vital SignAnswerDate Recorded On average, how many [...] steady place to sleep or slept in [facility] (including now)?No09/19/2023Housing Stability Vital SignAnswerDate RecordedIn [...] the highest degree you have received?High school jqzouloe13/29/2023 Estimated Date of GrbulfrcRutlspmfLmq26/03/2026ased on last menstrual period of 02/21/2025Sex and Gender InformationValueDate RecordedSex Assigned at BirthNot on fileLegal IjpLsdbel12/15/2023 7:18 PM EDTGender IdentityNot on file Sexual OrientationNot on 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 Not on fileNot on fileNot on filedocumented as of this encounter Plan of Treatment DateTypeDepartmentCare Team (Latest Contact Info)Tsdfmgjtdgi77/04/2025 9:00 AM ESTRoutine [facility] [place] [facility] [address] [place] [phone] Nathan Pop, DO [address] [facility] [place] [address] documented as of this encounter Procedures Procedure NamePriorityDate/TimeAssociated DiagnosisCommentsUS OB BPP W NON-BXXRIG1010/03/2025 11:36 AM EST documented in this encounter Results * US OB BPP W NON-STRESS (10/03/2025 11:36 AM EST)Anatomical Region LateralityModalityOtherSpecimen (Source)Anatomical Location / Laterality Collection Method / VolumeCollection TimeReceived Time10/03/2025 11:36 AM EST Narrative 10/03/2025 11:38 AM EST [facility] ?[address] ? [place] [address] ? Ultrasound Report ? Signed ? Patient: DRISS GAMA ?MR#: [id number] ?? : 1995 ?Acct:[id number] ?? Age/Sex: 30 / F ?ADM Date: 10/03/25 ?? Loc: US ? Attending Dr: Steph Keane ? Ordering Physician: Steph Keane ?? Date of Service: 10/03/25 ?? Procedure(s): US OB BPP w non-stress ?? Accession Number(s): [id number] ? cc: Steph Keane; Yomaira BELTRAN ? [facility] ? [address] ? [place] [address] ? Patient Name: ?? DRISS Sanchez JAYY ? MRN: [id number] ? date: 1995 ?Sex: F ?? Assigned Patient Location: US ?? Current Patient Location: ? Accession/Order Number: [id number] ?? Exam Date: 10/03/2025 ??10:53 ?Report Date: [...] Dictation Location: RADIO-PC-17 ? Electronically authenticated by: [id number] ??Y ?? Date: 10/03/2025 ??11:36 ? Dictated By: ?Will Faria M.D. ? Signed By: ?10/03/25 1138 ? DD/ 1136 ? TD/TT: ? Commissary Agent: Procedure Note Radiology, Radiologist, - 10/03/2025 [place] [address] Ultrasound Report Signed Patient: DRISS GAMA MMR#: [id number] : 1995Acct:[id number] Age/Sex: 30 / FADM Date: 10/03/25 Loc: US Attending Dr: Steph Keane Ordering Physician: Steph Keane Date of Service: 10/03/25 Procedure(s): US OB BPP w non-stress Accession Number(s): [id number] cc: Steph Keane; Yomaira BELTRAN The [address] [address] Patient Name: DRISS GAMA MRN: [id number] date: 1995 Sex: F Assigned Patient Location: US Current Patient Location: Accession/Order Number: [id number] Exam Date: 10/03/2025 10:53 Report Date: 10/03/2025 [...] Faria M.D. 10/03/2025 11:36 AM Dictation Location: [facility] Electronically authenticated by: [id number] Y Date: 1:36 Dictated By: Will Faria M.D. Signed By:10/03/25 1138 DD/ 1136 TD/TT: Commissary Agent: Authorizing ProviderResult TypeResult StatusClintmelissa Lakhwinder NPCLINISYNC IMAGING Final Result documented in this encounter Visit Diagnoses Not on filedocumented in this encounter Care Teams Team MemberRelationshipSpecialtyStart DateEnd Date Eliceo Beltran DO [address] [place] [address] PCP - GeneralFamily Medicine02/14/24 lEiceo Beltran DO [address] [place] [address] PCP - Medical [place] Commercial/documented as of this encounter
--- OUTSIDE RECORDS SUMMARY | 2025-10-17 08:10 | XMS_ITS | Encounter Summary ---
Author Organization [facility] Address [address] [place] [address] Care Team Providers Care Air Conditioning Installer Supervisor Name Role Phone Eliceo Beltran DO Primary Care Provider CharlottecarolEliceo Unavailable [phone] Encounter Details DateTypeDepartmentCare Team (Latest Contact Info)Zqdmfqceodc97/19/2025Bamboo flowsheet [facility] [place] [facility] [address] [place] [phone] Nathan Pop DO [address] [facility] [address], [place] [address] Social History Tobacco UseTypesPacks/DayYears UsedDateSmoking Tobacco: NeverSmokeless Tobacco: NeverAlcohol UseStandard Drinks/WeekCommentsNever0 (1 standard drink = 0.6 oz pure alcohol)caffeine: 1-2 cups per day, coffee and [id number] Health Literacy AnswerDate RecordedHow often do you [...] relatives?Once a week12/29/2024How often do you attend yazidism or judaism services?Patient /03/2025Do you belong to any clubs or organizations such as yazidism groups, unions, [employer] or athletic leodan ups, or school groups?No12/29/2024How [...] hard at all12/29/2024PHQ-2AnswerDate RecordedPatient Health Questionnaire-2 Score0 07/30/2025[facility] [place] [facility] Occupational Health - Occupational Stress QuestionnaireAnswerDate RecordedDo you feel stress - tense, restless, nervous, or anxious, or unable to sleep at night because yourmind is troubled all the time - these days?Only a qfsjne6712/29/2024Exercise Vital SignAnswerDate Recorded On average, how many [...] the highest degree you have received?High school fosajnvb74/29/2023 Estimated Date of WseyqedwCqamoieoDwa10/03/2026ased on last menstrual period of 02/21/2025Sex and Gender InformationValueDate RecordedSex Assigned at BirthNot on fileLegal DfsZnpztj05/15/2023 7:18 PM EDTGender IdentityNot on file Sexual OrientationNot on 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 Not on fileNot on fileNot on filedocumented as of this encounter Plan of Treatment DateTypeDepartmentCare Team (Latest Contact Info)Mjobckkydbg01/04/2025 9:00 AM ESTRoutine [facility] [place] [facility] [address] [place] [phone] Nathan Pop DO [address] [facility] [place] [address] documented as of this encounter Visit Diagnoses Not on filedocumented in this encounter Care Teams Team MemberRelationshipSpecialtyStart DateEnd Date Eliceo Beltran DO [address] [address] PCP - GeneralFamily Medicine02/14/24 Eliceo Beltran DO [address] [place] [address] PCP - Medical [place] [employer]07/27/2412documented as of this encounter
--- OUTSIDE RECORDS SUMMARY | 2025-10-17 08:10 | XMS_ITS | Encounter Summary ---
Author Organization [facility] Address [address] [place] [address] Care Team Providers Care Elementary School Science Teacher Name Role Phone NirajEliceo kauffman Primary Care Provider [phone] CharlottecarolEliceo Bryant DAY Unavailable [phone] Encounter Details DateTypeDepartmentCare Team (Latest Contact Info)Zsjizxyomlk14/16/2025Clinisync Result Encounter [facility] External Department Unsolicited Jony Pop DO [address] [facility] [place] [address] Social History Tobacco UseTypesPacks/DayYears UsedDateSmoking Tobacco: NeverSmokeless Tobacco: NeverAlcohol UseStandard Drinks/WeekCommentsNever0 (1 standard drink = 0.6 oz pure alcohol)caffeine: 1-2 cups per day, coffee and [id number] Health Literacy AnswerDate RecordedHow often do you [...] do you attend judaism or adventism services?Patient upcavxwj24/03/2025Do you belong to any clubs or organizations such as judaism groups, unions, [employer] or athletic leodan ups, or school groups?No12/29/2024How [...] RecordedPatient Health Questionnaire-2 Score0 07/30/2025[facility] [place] of Occupational Health - Occupational Stress QuestionnaireAnswerDate RecordedDo you feel stress - tense, restless, nervous, or anxious, or unable to sleep at night because yourmind is troubled all the time - these days?Only a gkzvle7212/29/2024Exercise Vital SignAnswerDate Recorded On average, how many [...] the highest degree you have received?High school bxtgtpta25/29/2023 Estimated Date of SpiynuueNkmaqhdhEia83/03/2026ased on last menstrual period of 02/21/2025Sex and Gender InformationValueDate RecordedSex Assigned at BirthNot on fileLegal QomCzdtmn81/15/2023 7:18 PM EDTGender IdentityNot on file Sexual OrientationNot on 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 [address] Jony Pop, DO [address] [facility] [address] [place], [facility] documented as of this encounter Procedures Procedure NamePriorityDate/TimeAssociated DiagnosisCommentsUS OB BPP W NON-TIAEAT7510/11/2025 1:46 PM EST documented in this encounter Results * US OB BPP W NON-STRESS (10/11/2025 1:46 PM EST)Anatomical Region LateralityModalityOtherSpecimen (Source)Anatomical Location / Laterality Collection Method / VolumeCollection TimeReceived Time10/11/2025 1:46 PM EST Narrative 10/11/2025 1:48 PM EST [facility] ?[address] ? [place] [address] ? Ultrasound Report ? Signed ? Patient: DRISS GAMA ?MR#: [id number] ?? : 1995 ?Acct:[id number] ?? Age/Sex: 30 / F ?ADM Date: 10/10/25 ?? Loc: [facility] ? Attending Dr: Jony Pop D.O. ? Ordering Physician: Jony Pop D.O. ?? Date of Service: 10/10/25 ?? Procedure(s): US OB BPP w non-stress ?? Accession Number(s): [id number] ? cc: Jony Pop D.O.; Yomaira BELTRAN ? [facility] ? [address] ? [place] [address] ? Patient Name: ?? DRISS Daniel GAMA ? MRN: [id number] ? date: 1995 ?Sex: F ?? Assigned Patient Location: [facility] ?? Current Patient Location: [facility] ?? Accession/Order Number: [id number] ?? Exam Date: 10/10/2025 ??10:49 ?Report Date: [...] Dictation Location: RADIO-PC-20 ? Electronically authenticated by: [id number] ??Y ?? Date: 10/11/2025 ??13:46 ? Dictated By: ?Jp Morillo D.O. ? Signed By: ?10/11/25 1348 ? DD/ 1346 ? TD/TT: ? Merchandise Associate: Procedure Note Radiology, Radiologist, - 10/11/2025 [place] [address] Ultrasound Report Signed Patient: DRISS GAMA MMR#: [id number] : 1995Acct:[id number] Age/Sex: 30 / FADM Date: 10/10/25 Loc: [facility] Attending Dr: Jony Pop D.O. Ordering Physician: Jony Pop D.O. Date of Service: 10/10/25 Procedure(s): US OB BPP w non-stress Accession Number(s): [id number] cc: Jony Pop D.O.; Yomaira BELTRAN The [place] [id number] Patient Name: DRISS GAMA MRN: [id number] date: 1995 Sex: F Assigned Patient [facility] Current Patient Location: [facility] Accession/Order Number: [id number] Exam Date: 10/10/2025 10:49 Report Date: 10/11/2025 [...] Morillo M.D. 10/11/2025 1:46 PM Dictation Location: [facility] Electronically authenticated by: [id number] Y Date: 3:46 Dictated By: Jp Morillo D.O. Signed By:10/11/25 1348 DD/ 1346 TD/TT: Merchandise Associate: Authorizing ProviderResult TypeResult StatusCorey Kiesha DOCLINISYNC IMAGINGFinal Result documented in this encounter Visit Diagnoses Not on filedocumented in this encounter Care Teams Team MemberRelationshipSpecialtyStart DateEnd Date Eliceo Beltran DO [address] [place] [address] PCP - GeneralFamily Medicine02/14/24 Eliceo Beltran DO [address] [place] [address] PCP - Medical [place] Commercial07/27/2412documented as of this encounter
--- OUTSIDE RECORDS SUMMARY | 2025-10-17 08:10 | XMS_ITS | Encounter Summary ---
Author Organization [facility] tem Address [id number] [address] [place] [address] Care Team Providers Care Supervisor Asbestos Textile Name Role Phone Cruz Rodríguez MD Primary Care Provider [phone] Encounter Details DateTypeDepartmentCare Team (Latest Contact Info)Lwfjjremzsn32/09/2025Travel Social History Tobacco UseTypesPacks/DayYears UsedDateSmoking Tobacco: NeverSmokeless Tobacco: NeverAlcohol UseStandard Drinks/WeekCommentsNo0 (1 standard drink = 0.6 oz pure alcohol)AUDIT-CAnswerDate RecordedQ1: How often do you have a drink containing alcohol?Never09/10/2025Q2: How many drinks containing alcohol do you have on a typical day when you are drinking?Patient does not drink09/10/2025Q3: How often do you have six or more drinks on one occasion?Never09/10/2025hildcareAnswer Date ElksbfjjYhbiwqgavAdcwumu85/13/2019EmploymentAnswerDate RecordedEmployment Useikoe9905/08/2019Hunger ScreeningAnswerDate RecordedWithin the past 12 months we worried whether our food would run out before we got money to buy more.Never True09/10/2025Within the past 12 months the food we bought just didn't last and we didn't have money to get more.Never True09/10/2025Purpose - LifeAnswerDate RecordedPurpose and direction in ofgeBsjbdtf38/11/2021Estimated Date of OzpbamkyAppzsjtcCcy09/03/2026Based on last menstrual period of 02/21/2025 (Exact Date)Sex and Gender InformationValueDate RecordedSex Assigned at BirthNot on fileLegal XyaObpasq43/07/2019 2:55 PM ESTGender IdentityNot on fileSexual OrientationNot on filedocumented as of this encounter Plan of Treatment DateTypeDepartmentCare Team (Latest Contact Info)Snsmxtqjght27/03/2025 11:00 AM ESTAppointment Maternal Medicine [place] [address] [place] [address] 11/03/2025 2:30 PM ESTOffice Visit Maternal- Medicine at [facility] [address] [place] [phone] Kayleigh Rizzo, PA-C [address] [address] documented as of this encounter Visit Diagnoses Not on filedocumented in this encounter Care Teams Team MemberRelationshipSpecialtyStart DateEnd Date Cruz Rodríguez MD [address] [place] [address] PCP - GeneralFamily Medicine12/02/18documented as of this encounter
--- OUTSIDE RECORDS SUMMARY | 2025-10-17 08:10 | XMS_ITS | Clinical Summary ---
Author Organization [facility] Address [address] [place] [address] Care Team Providers Care Carpentry Teacher Name Role Phone Eliceo Beltran DO Primary Care Provider [phone] Eliceo Beltran DO Unavailable [phone] Allergies No known active allergies Medications MedicationSigDispense QuantityRefillsLast FilledStart DateEnd DateStatus metoprolol succinate XL (Toprol-XL) 25 MG 24 hr tablet Indications:Hypertension, unspecified typeTake 1 tablet by mouth daily 90 tablet 5Active Vit-Fe Fumarate-FA ( Vitamins) 28-0.8 MG tablet Indications:, unspecified gestational age ([facility]),Encounter for supervision of normal first in first trimester ([facility])Take 1 tablet by mouth Daily 30 tablet 110/6Active Alcohol Swabs (Alcohol Prep Pad) 70 % pads Indications:Gestational diabetes mellitus (GDM), antepartum, gestational diabetes method of control unspecified([facility]),Elevated glucose tolerance test Apply 1 Pad topically Daily Use four times daily to check FSBS. 150 each 5Active Blood Glucose Monitoring Suppl (D-Care Glucometer) w/Device kit Indications:Gestational diabetes mellitus (GDM), antepartum, gestational diabetes method of control unspecified([facility]),Elevated glucose tolerance test1 kit Daily Use four [...] Inject 13 Units under the skin at vsvmsit71/21/2025Active Lancets Ultra Thin misc Indications:Gestational diabetes mellitus (GDM), antepartum, gestational diabetes method of control unspecified([facility]),Elevated glucose tolerance test1 each by In Vitro route Daily Use to check FSBS four times daily 150 each 51Expired Glucose Blood (Blood Glucose Test) strip Indications:Gestational diabetes mellitus (GDM), antepartum, gestational diabetes method of control unspecified([facility]),Elevated glucose tolerance test1 strip by In Vitro route Daily Use in the morning prior to breakfast, 1 hour after each meal for atotal of 4times daily. 150 strip Expired Active Problems ProblemNoted DateDiagnosed Date33 weeks gestation of ([facility]) 10/14/2025Third trimester ([facility])10/14/20251742Fhvjkkoi56/29/2025 Vistdknkfxc42/26/2024Obesity (BMI 30-39.9)02/19/2024cquired equinus deformity of foot03/29/2023isplacement of cervical intervertebral disc without myelopathy 03/29/20234576Gyqoangjywni49/04/5387Jogwnfqtvonys50/04/1348Uxyxmduccojdu11/04/2023 Lzstczlwdhdm35/04/2023 Assessment & Plan (07/30/2025 4:00 PM EDT): Record Blood Pressures 2-4 times weekly and record. Return with readings at next appointment. Call with readings if sees significant changes Intractable migraine without aura and with status /04/2023Migraines 03/29/2023hronic pelvic pain in doekyh7103/29/2023ain in female genitalia on mxrfjqsapfq16/04/2023ain on zidporedrg69/04/2023anic xpywhwbs62/04/2023 Patellofemoral disorders, left knee03/29/2023atellofemoral disorders, right knee03/29/2023osterior calcaneal bdgvqytzm95/04/2023Scapular dyskinesis 03/29/20234272Gfkrcqroc42/04/2023Seasonal allergic rhinitis due to vjjwfh7003/29/2023 Tachycardia, ixovgnhlkd73/04/2023Tension qybeuzek92/04/2023Vitamin B12 eatzeknkhi21/04/2023Vitamin D aqasusewgx26/04/2023hronic right shoulder pain 03/29/2023Estimated Date of UeclnyysDrgbhvudHdn12/03/2026ased on last menstrual period of 02/21/2025 Encounters DateTypeDepartmentCare UtcyZglknfiwlzp92/21/2025linisync Result Encounter [facility] External Department Unsolicited Jony Pop, DO 10/14/2025 3:30 PM ESTRoutine [facility] [address] [place] [address] Jony Pop, DO 33 weeks gestation of ([facility]); Third trimester ([facility])10/14/2025amboo flowsheet [facility] [address] [place] [address] Jony Pop, DO 10/13/20254528Uxbkns24/17/2025Clinisync Result Encounter NOMS External Department Unsolicited Jony Pop, DO 5Clinisync Result Encounter [facility] External Department Unsolicited Jony Pop, DO 10/09/2025bstract [facility] [address] [place] [address] Jony Pop, DO 10/03/2025linisync Result Encounter NOMS External Department Unsolicited Steph Keane NP 10/01/2025Telephone [facility] [address] [place] [address] Jony Pop, DO 09/30/2025 3:00 PM ESTRoutine [facility] [address] [place] [address] Jony Pop, Third trimester ([facility]); 31 weeks gestation of ([facility]); Pre-eclampsia in third trimester ([facility])09/30/2025amboo flowsheet [facility] [address] [place] [address] Joyn Pop, DO 09/26/2025linisync Result Encounter [facility]OMS External Department Unsolicited Steph Keane NP 09/23/20254633Mnbiqz17/25/2025linisync Result Encounter [facility]OMS External Department Unsolicited Steph Keane, DEVYN 09/16/2025 3:20 PM EDTRoutine [facility] [address] [place] [address] Jony Pop, DO 29 weeks gestation of ([facility]); Third trimester ([facility]); Hypertension affecting , antepartum ([facility]); Gestational diabetes mellitus (GDM), antepartum, gestational diabetes method of control unspecified([facility])09/16/2025amb flowsheet [facility] [address] [place] [address] Jony Pop, DO 09/11/2025bstract [facility] [address] [place] [address] Jony Pop, DO 09/09/20254250Dtntae34/09/2025 3:50 PM EDTRoutine [facility] [place] [address] Steph Keane NP Hypertension affecting , antepartum ([facility]) (Primary Dx); 27 weeks gestation of ([facility]); Second trimester ([facility])09/03/2025linisync Result Encounter NOMS External Department Unsolicited Kiesha, Jony, DO 09/03/2025amboo flowsheet [facility] [address] [place] [address] Steph Keane NP 09/02/20250195Mzvzeq69/04/2025linisync Result Encounter [facility]OM[facility] External Department Unsolicited Steph Keane NP 08/28/2025bstract [facility] [address] [place] [address] Eliceo Beltran, DO 08/28/2025Telephone [facility] [address] [place] [address] Radha Rahman MA 08/27/2025 3:20 PM EDTRoutine [facility] [address] [place] [address] Steph Keane, DEVYN 26 weeks gestation of ([facility]); Second trimester ([facility]); induced hypertension, antepartum ([facility]); Gestational diabetes mellitus (GDM) in second trimester, gestational diabetes method of control unspecified ([facility])08/27/2025linisync Result Encounter [facility]OM[facility] External Department Unsolicited Steph Keane NP 08/27/2025linisync Result Encounter [facility]OM[facility] External Department Unsolicited Steph Keane NP 08/27/2025amboo flowsheet [facility] [address] [place] [address] Steph Keane NP 08/25/2025linisync Result Encounter NOMS External Department Unsolicited Provider, Generic External Data 08/20/2025bstract [facility] [address] [place] [address] Jony Pop, DO 08/20/2025Telephone [facility] [address] [place] [address] Steph Keane, DEVYN 08/17/2025bstract [facility] [address] [place] [address] Eliceo Beltran, DO 08/17/2025bstract [facility] [address] [place] [address] Eliceo Beltran, DO 08/17/2025Telephone [facility] [address] [place] [address] Jony Pop, DO 08/13/2025bstract [facility] [address] [place] [address] Jony Pop, DO 08/12/2025 2:40 PM EDTRoutine [facility] [address] [place] [address] Jony Pop, DO 24 weeks gestation of ([facility]); Second trimester ([facility]); Elevated glucose tolerance test08/12/2025 2:00 PM EDTAncillary Procedure [facility] [address] [place] [address] Encounter for follow-up ultrasound of anatomy ([facility])08/12/2025bstract [facility] [address] [place] [address] Jony Pop, DO 08/12/2025bstract [facility] [address] [place] [address] Jony Pop, DO 08/12/2025Telephone [facility] [address] [place] [address] Bill Gould LPN Sbmwnnc9308/12/2025bstract [facility] [address] [place] [address] Eliceo Beltran, DO 08/04/2025bstract [facility] [address] [place] [address] Jony Pop, 08/04/2025Telephone [facility] [address] [place] [address] Bill Gould LPN Wwmgqvd4907/30/2025 3:40 PM EDTOffice Visit [facility] [address] [place] [address] Eliceo Beltran, Wellness examination (Primary Dx); Hypertension, unspecified type ; Lipid zwceagzhy64/04/2025amboo flowsheet [facility] [address] [place] [address] Eliceo Beltran, 07/30/20250297Hctols22/26/2025Telephone [facility] [address] [place] [address] Jony Pop, from Last 3 Months Immunizations ImmunizationAdministration DatesNext DueDTP / HiB08/01/1996,1995, 1995DTaP, Chjzhxramzd43/08/2000,12/29/1997HPV, Xacqikaygepm59/17/2014, 05/04/2014,2014Hep A, Adult09/11/2014,2014Hep B, Adolescent or Oeqnzomjh96/06/1996,1995,1995IPV05/03/2000Influenza, seasonal, injectable, preservative free09/11/2014MMR05/03/2000,08/01/1996Meningococcal AYD2Z8504/03/2007OPV08/01/1996,1995,1995Tdap2014 Family History Medical HistoryRelationNameCommentsAnemiaFatherColon cancerFatherCancerMaternal GrandfatherbutchHypertensionMaternal GrandfatherbutchBreast cancerMaternal GrandmotherHypertensionMotherdarleneColon cancerPaternal GrandfatherRelationName StatusCommentsFatherDeceasedMaternal GrandfatherbutchMaternal GrandmotherMother darleneAlivePaternal GrandfatherPaternal GrandmotherAlive Social History Tobacco UseTypesPacks/DayYears UsedDateSmoking Tobacco: NeverSmokeless Tobacco: Never Tobacco Cessation:Counseling Given: Not Answered Alcohol UseStandard Drinks/WeekCommentsNever0 (1 standard drink = 0.6 oz pure alcohol)caffeine: 1-2 cups per day, coffee and jbpU1017 Health LiteracyAnswer Date RecordedHow often do you [...] week12/29/2024How often do you attend quaker or temple services?Patient kseyayic65/03/2025Do you belong to any clubs or organizations such as quaker groups, unions, fraternal or athletic leodan ups, or school groups?No12/29/2024How often do you attend meetings of the clubs or organizations you belong to?Patient wwtfgpeo04/03/2025re you , , , , never , [...] hard at all12/29/2024PHQ-2AnswerDate RecordedPatient Health Questionnaire-2 Score0 07/30/2025[facility] [place] [facility] - Occupational Stress QuestionnaireAnswerDate RecordedDo you feel stress - tense, restless, nervous, or anxious, or unable to sleep at night because yourmind is troubled all the time - these days?Only a utdbce4712/29/2024Exercise Vital SignAnswerDate Recorded On average, how many [...] the highest degree you have received?High school rbzphhuu32/29/2023 Estimated Date of JlzleteuQwyeawfoSal27/03/2026ased on last menstrual period of 02/21/2025Sex and Gender InformationValueDate RecordedSex Assigned at BirthNot on fileLegal JelYejcfi50/15/2023 7:18 PM EDTGender IdentityNot on file Sexual OrientationNot on 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 Not on fileNot on fileNot on file Last Filed Vital Signs Vital SignReadingTime TakenCommentsBlood Dersvspr827/8411 3:29 PM EST Jvhzk4255 3:36 PM ZFFHpeyaqgtjqt49.2 ??C (97.1 ??F)07/30/2025 3:36 PM EDTRespiratory Zzqg311612/23/2022 4:16 PM ESTOxygen Xywfxwmeac65%07/30/2025 3:36 PM EDTInhaled Oxygen Concentration--Nxbtux05.3 kg (168 lb 1.9 oz)10/14/2025 3:29 PM AERUkoguu105.5 cm (5' 2 )07/30/2025 3:36 PM EDTBody Mass Index30.75007/30/2025 3:36 PM EDT Plan of Treatment DateTypeDepartmentCare Team (Latest Contact Info)Fahemwqonzh98/04/2025 9:00 AM ESTRoutine [facility] [address] [place] [address] Jony Pop DO [address] [place] [address] Health MaintenanceDue DateLast DoneCommentsCOVID-19 Vaccine ( season) 2025Influenza Vaccine (#1)Pap Smear08/18/2027 08/18/2024, 08/15/2023, 06/20/2022, Additional history existsCervical Cancer Xvoqxjqwa75/09/2028HPV/Omqrgg77neumococcal Vaccine: Pediatrics (0 to 5 Years) and At-Risk Patients (6 to 64 Years)Aged OutNo longer eligible based on patient's age to complete this topic Procedures Procedure NamePriorityDate/TimeAssociated DiagnosisCommentsURINE CULTURE - [facility] Zsqhnxa3410/16/2025 1:30 PM ESTTBH UA (CLEAN/CATCH) TABLE TOP TILE SETTER/MICRO IF IND.Routine 10/16/2025 1:30 PM EST POCT URINALYSIS FXEINKLHBwjfiyq49/19/2025 3:40 PM EST 33 weeks gestation of ([facility]) Third trimester ([facility]) C[facility] NXBJBhhavbz07/17/2025 8:28 PM EST SRMCOH PROTHROMBIN TIME INR W/O BHWYZpzxofa20/17/2025 8:28 PM EST ALL QRKUwugqdi81/17/2025 8:28 PM EST CCF MQWVxcgljc75/17/2025 8:28 PM EST CCF ROJGzvvqei63/17/2025 8:28 PM EST ALL URIC KRFJPclexrp64/17/2025 8:28 PM EST TBH EVFFKIJYYNFcyiveo03/17/2025 8:28 PM EST ALL GGRUsqxtwp68/17/2025 8:28 PM EST ALL CBC WITH AUTO PXDNRghpudv91/17/2025 8:28 PM EST TBH URINE T PROTEIN CREAT TNBUCRssfhzp40/17/2025 7:05 PM EST TBH UA (CLEAN/CATCH) TABLE TOP TILE SETTER/MICRO IF IND.Wciqroc5110/12/2025 7:05 PM EST US OB BPP W NON-ZGUTRA8010/11/2025 1:46 PM EST US OB BPP W NON-AWKDTH1210/03/2025 11:36 AM EST POCT URINALYSIS JNQZZPOIFkzshjb82/05/2025 3:13 PM EST Third trimester ([facility]) US OB BPP W NON-ZVBCKK2109/26/2025 2:50 PM EDT US OB BPP W NON-IMWCGU6709/19/2025 12:17 PM EDT POCT URINALYSIS QUIMFBXGNgntkvp79/22/2025 4:09 PM EDT 29 weeks gestation of ([facility]) Third trimester ([facility]) ALL CBC WITH AUTO XSYPJohwyph94/09/2025 5:15 PM EDT MHPT QIFERMSEUTKuzbzgv14/09/2025 5:15 PM EDT CCF ISWJVgmibrt65/09/2025 5:15 PM EDT SRMCOH PROTHROMBIN TIME INR W/O NAZXRnolkge92/09/2025 5:15 PM EDT CCF BVAJwhpmkq81/09/2025 5:15 PM EDT CCF UPJIiokcak50/09/2025 5:15 PM EDT ALL URIC VJYVFzwsirf87/09/2025 5:15 PM EDT TBH RDRMCTIQTFHkbnrcg59/09/2025 5:15 PM EDT ALL WFFEsgsqmi76/09/2025 5:15 PM EDT TBH URINE T PROTEIN CREAT UDKLRNlznnpl82/09/2025 5:05 PM EDT POCT URINALYSIS CYWLZTTQDrgzzgl10/09/2025 4:26 PM EDT 27 weeks gestation of ([facility]) TBH TOTAL PROTEIN 24 HOUR KURVJIoqkfyf71/04/2025 8:00 AM EDT US OB BPP W NON-NHICIB5508/27/2025 6:02 PM EDT TBH URINE T PROTEIN CREAT RWUKHOifzoms23/02/2025 5:50 PM EDT CCF MWLGnylhxk98/02/2025 5:00 PM EDT CCF VYCQUxwqbpm27/02/2025 5:00 PM EDT SRMCOH PROTHROMBIN TIME INR W/O ISDISfxwcbs98/02/2025 5:00 PM EDT ALL VKTAlksgqz81/02/2025 5:00 PM EDT CCF NECAqlzdlq91/02/2025 5:00 PM EDT ALL URIC RWEFXttyfzy28/02/2025 5:00 PM EDT TBH HKVTQNGRTCTqmjdmr08/02/2025 5:00 PM EDT ALL CJXIjhbkhy40/02/2025 5:00 PM EDT ALL CBC WITH AUTO APIPTztujbs94/02/2025 5:00 PM EDT POCT URINALYSIS YGAGRMZIHkpecdt31/02/2025 3:53 PM EDT 26 weeks gestation of ([facility]) URINE CULTURE, YJUTLQFBkjzpdd64/30/2025 8:10 AM EDT POCT URINALYSIS SEWYVMGMYjeqcqp77/17/2025 2:39 PM EDT 24 weeks gestation of ([facility]) Second trimester ([facility]) US OB LIMITED 1+ ICBSAVFYnbuvoc63/17/2025 2:22 PM EDT Encounter for follow-up ultrasound of anatomy ([facility]) PAP IRIXWGwzssjs06/23/2024 12:00 AM EDTTHINPREP PAP AND HPV MRNA E6/E7 W/RFL HPV 16,18/70Ejplfdo43/09/2023 4:00 PM EDT Well woman exam with routine gynecological exam from Last 3 Months or Most Recently Relevant to Health Maintenance Results * (ABNORMAL) TBH UA (CLEAN/CATCH) TABLE TOP TILE SETTER/MICRO IF IND. (10/16/2025 1:30 PM EST) Only the most recent of2 resultswithin the time period is included. ComponentValueRef RangeTest MethodAnalysis TimePerformed AtPathologist Signature COLOR URINELT. YELLOWYELLOWTBHCLARITY URINECLEARCLEARTBHSPECIFIC GRAVITY URINE 1.0151.005 - 1.025TBHPH URINE6.05.0 - 9.0TBHPROTEIN URINENEGATIVENEG/TRACE mg/dL TBHGLUCOSE URINE UANEGATIVENEGATIVE mg/dLTBHBILIRUBIN URINENEGATIVENEGATIVETBH KETONES URINENEGATIVENEGATIVE mg/dLTBHBLOOD URINENEGATIVENEGATIVETBHNITRITE URINENEGATIVENEGATIVETBHUROBILINOGEN URINE0.20.2 - 1.0 EU/dLTBHLEUKOCYTE ESTERASE URINEMODERATE(A)NEGATIVETBHURINE MICROSCOPIC INDICATEDYESTBHSpecimen (Source)Anatomical Location / LateralityCollection Method / VolumeCollection TimeReceived Time10/16/2025 1:30 PM EST10/16/2025 1:44 PM EST Narrative CLINISYNC - 10/16/2025 1:55 PM EST Authorizing ProviderResult TypeResult StatusCorey Kiesha DOCLINISYNCFinal Result Performing OrganizationAddressCity/State/ZIP CodePhone Number CLINISYNC TB * (ABNORMAL) POCT urinalysis dipstick manually resulted [...] / Laterality Collection Method / VolumeCollection TimeReceived JosrEysaf63/19/2025 3:40 PM EST Narrative Authorizing ProviderResult TypeResult StatusCorey Kiesha DOPOINT OF CARE TEST ENTER/EDIT ORDERABLESFinal Result * TBH CREATININE (10/12/2025 8:28 PM EST) Only the most recent of3 resultswithin the time period is included. ComponentValueRef RangeTest MethodAnalysis TimePerformed AtPathologist Signature CREATININE0.740.55 - 1.02 mg/dLTBHTBH EGFR-AF NEW Z[place]ANDER>60>=60 mL/min/1.73m 2TBH TBH EGFR-NON AF NEW Z[place]ANDER>60>=60 mL/min/1.73m 2TBHSpecimen (Source)Anatomical Location / LateralityCollection Method / VolumeCollection TimeReceived Time 10/12/2025 8:28 PM EST10/12/2025 8:39 PM EST Narrative CLINISYNC - 10/12/2025 8:59 PM EST Authorizing ProviderResult TypeResult StatusCorey Kiesha DOCLINISYNCFinal Result Performing OrganizationAddressCity/State/ZIP CodePhone Number [facility] * [facility] PROTHROMBIN TIME INR W/O [...] Kiesha DOCLINISYNCFinal Result Performing OrganizationAddressCity/State/ZIP CodePhone Number [facility] * [facility] AST (10/12/2025 8:28 PM EST) Only the most recent of3 resultswithin the time period is included. ComponentValueRef RangeTest MethodAnalysis TimePerformed AtPathologist Signature ASPARTATE AMINO [id number] - 37 U/LTBHSpecimen (Source)Anatomical Location / LateralityCollection Method / VolumeCollection TimeReceived Time10/12/2025 8:28 PM EST10/12/2025 8:39 PM EST Narrative CLINISYNC - 10/12/2025 8:59 PM EST Authorizing ProviderResult TypeResult StatusCorey Kiesha DOCLINISYNCFinal Result Performing OrganizationAddressCity/State/ZIP CodePhone Number CLINISYNC TB * CCF APTT (10/12/2025 8:28 PM EST) [...] ComponentValueRef RangeTest MethodAnalysis TimePerformed AtPathologist Signature ALANINE ZVRSEUASFWNVJOGY5435 - 59 U/LTBHSpecimen (Source)Anatomical Location / LateralityCollection [...] OrganizationAddressCity/State/ZIP CodePhone Number CLINISYNC TB * ALL LDH (10/12/2025 8:28 PM EST) Only the most recent of2 resultswithin the time period is included. ComponentValueRef RangeTest MethodAnalysis TimePerformed AtPathologist Signature LACTATE APZPGIWUMLLSZ23354 - 234 U/LTBHSpecimen (Source)Anatomical Location / LateralityCollection Method / VolumeCollection TimeReceived Time10/12/2025 8:28 PM EST10/12/2025 8:39 PM EST Narrative CLINISYNC - 10/12/2025 8:59 PM EST Authorizing ProviderResult TypeResult StatusCorey Kiesha DOCLINISYNCFinal Result Performing OrganizationAddressCity/State/ZIP CodePhone Number CLINISYNC [facility] * (ABNORMAL) ALL CBC WITH AUTO DIFF [...] - 35.2 g/dLTBHTBH RDW13.211.0 - 15.0 %TBHTBH PJQ974100 - 450 10 3/uLTBHTBH MPV9.69.5 - 13.5 [...] Kiesha DOCLINISYNCFinal Result Performing OrganizationAddressCity/State/ZIP CodePhone Number [facility] * ALL BUN (10/12/2025 8:28 PM EST) Only the most recent of3 resultswithin the time period is included. ComponentValueRef RangeTest MethodAnalysis TimePerformed AtPathologist Signature BLOOD UREA VYSLDAGO04.07.0 - 18.0 mg/dLTBHSpecimen (Source)Anatomical Location / LateralityCollection [...] MethodAnalysis TimePerformed AtPathologist Signature TOTAL PROTEIN URINE HQEIKX88.5(H)<=11.9 mg/dLTBHCREATININE URINE JBLQKR72.21 20.00 - 300.00 mg/dLTBHPROTEIN CREATININE RATIO URINE0.16TBHSpecimen (Source) Anatomical Location / LateralityCollection Method / VolumeCollection Time Received Time10/12/2025 7:05 PM EST10/12/2025 10:30 PM EST Narrative CLINISYNC - 10/12/2025 10:40 PM EST Authorizing ProviderResult TypeResult StatusCorey Kiesha DOCLINISYNCFinal Result Performing OrganizationAddressCity/State/ZIP CodePhone Number CLINISYNC TBH * US OB BPP W NON-STRESS (10/11/2025 1:46 PM EST) Only the most recent of5 resultswithin the time period is included. Anatomical RegionLateralityModalityOtherSpecimen (Source)Anatomical Location / LateralityCollection Method / VolumeCollection TimeReceived Time10/11/2025 1:46 PM EST Narrative 10/11/2025 1:48 PM EST [facility] ?[address] ? [place] [address] ? Ultrasound Report ? Signed ? Patient: JAYYNITODRISS Daniel ?MR#: [id number] ?? : 1995 ?Acct:[id number] ?? Age/Sex: 30 / F ?ADM Date: 10/10/25 ?? Loc: [facility] ? Attending Dr: Jony Pop D.O. ? Ordering Physician: Jony Pop D.O. ?? Date of Service: 10/10/25 ?? Procedure(s): US OB BPP w non-stress ?? Accession Number(s): [id number] ? cc: Joyn Pop D.O.; Yomaira BELTRAN ? [facility] ? [address] ? [place] [address] ? Patient Name: ?? DRISS Sanchez JAYY ? MRN: TBH:[id number] ? date: 1995 ?Sex: F ?? Assigned Patient Location: [facility] ?? Current Patient Location: [facility] ?? Accession/Order Number: [id number] ?? Exam Date: 10/10/2025 ??10:49 ?Report Date: [...] M.D. ??10/11/2025 1:46 PM ? Dictation Location: [facility] ? Electronically authenticated by: [id number] ??Y ?? Date: 10/11/2025 ??13:46 ? Dictated By: ?Jp Morillo D.O. ? Signed By: ?10/11/25 1348 ? DD/ 1346 ? TD/TT: ? Golf Caddie: Procedure Note Radiology, Radiologist, MD - 10/11/2025 [place] [address] Ultrasound Report Signed Patient: DRISS GAMA MMR#: [id number] : 1995Acct:[id number] Age/Sex: 30 / FADM Date: 10/10/25 Loc: [facility]BCO Attending Dr: Jony Pop D.O. Ordering Physician: Jony Pop D.O. Date of Service: 10/10/25 Procedure(s): US OB BPP w non-stress Accession Number(s): [id number] cc: Jony Pop D.O.; Yomaira BELTRAN [facility] [place] [id number] Patient Name: DRISS GAMA MRN: [facility]:[id number] date: 1995 Sex: F Assigned Patient Location: [facility] [place] [facility] [place]/Order Number: [id number] Exam Date: 10/10/2025 10:49 Report Date: 10/11/2025 [...] Morillo M.D. 10/11/2025 1:46 PM Dictation Location: [place] [address] Electronically authenticated by: [id number] Date: 3:46 Dictated By: Jp Morillo D.O. Signed By:10/11/25 1348 DD/ 1346 TD/TT: Golf Caddie: Authorizing ProviderResult TypeResult StatusCorey Kiesha DOCLINISYNC IMAGINGFinal Result * (ABNORMAL) MHPT FIBRINOGEN (09/03/2025 5:15 PM EDT)ComponentValueRef RangeTest MethodAnalysis TimePerformed AtPathologist NpwswzaotNVMDXGAOWM773(H)200 - 400 mg/dLTBHSpecimen (Source)Anatomical Location / LateralityCollection Method / VolumeCollection TimeReceived Time09/03/2025 5:15 PM EDT1 5:21 PM EDT Narrative CLINISYNC - 09/03/2025 5:45 PM EDT Authorizing ProviderResult TypeResult StatusCorey Kiesha DOCLINISYNCFinal Result Performing OrganizationAddressCity/State/ZIP CodePhone Number CLINISYNC [facility] * (ABNORMAL) TBH TOTAL PROTEIN 24 HOUR URINE (08/29/2025 8:00 AM EDT)Component ValueRef RangeTest MethodAnalysis TimePerformed AtPathologist SignatureTOTAL PROTEIN URINE IAJVCD31.6(H)<=11.9 mg/dLTBHTOTAL VOLUME 24 HOUR DPHCU280yV/24hr TBHTBH TOTAL PROTEIN 24 HOUR ZHETF843.6<=149.1 mg/24hrTBHSpecimen (Source) Anatomical Location / LateralityCollection Method / VolumeCollection Time Received Time08/29/2025 8:00 AM EDT1 10:35 AM EDT Narrative CLINISYNC - 08/29/2025 12:08 PM EDT Authorizing ProviderResult TypeResult StatusGeneric External Data Provider CLINISYNCFinal ResultPerforming OrganizationAddressCity/State/ZIP CodePhone Number CLINISYNC [facility] * URINE CULTURE, ROUTINE (08/25/2025 8:10 AM EDT)ComponentValueRef RangeTest MethodAnalysis TimePerformed AtPathologist SignatureURINE CULTURE, ROUTINE ??Urine Culture, Routine TBHURINE CULTURE, ROUTINEMixed urogenital floraTBHURINE CULTURE, VDQSDKV78,000- 50,000 colony forming units per mLTBHURINE CULTURE, ROUTINEPerformed at: [facility] LabAscension Standish HospitalTBHURINE CULTURE, [id number] [place], [place] [id number] URINE CULTURE, ROUTINELab Director: Cm Sandoval PhD, Phone: [phone] Specimen (Source)Anatomical Location / LateralityCollection Method / Volume Collection TimeReceived Time08/25/2025 8:10 AM EDT08/25/2025 8:30 AM EDT Narrative MATTHEWISYNC - 08/26/2025 10:07 PM EDT Authorizing ProviderResult TypeResult StatusGeneric External Data ProviderLAB BLOOD ORDERABLESFinal ResultPerforming OrganizationAddressCity/State/ZIP Code Phone Number [facility] * US OB limited 1+ fetuses (08/12/2025 [...] BY: Junito Alas MD Authorizing ProviderResult TypeResult StatusJony BARONEMG OB US PROCEDURES Final Result * Pap Smear (08/18/2024 12:00 AM EDT)Specimen (Source)Anatomical Location / LateralityCollection Method / VolumeCollection TimeReceived TimeSwabCervical swab / Unknown Narrative Authorizing ProviderResult TypeResult StatusFastephono Nurse Noms Bcp ObLAB CYTOLOGY ORDERABLESFinal ResultPerforming OrganizationAddressCity/State/ZIP CodePhone Number EXTERNAL LAB * THINPREP PAP AND HPV MRNA E6/E7 W/RFL HPV 16,18/45 (09/03/2023 4:00 PM EDT) Narrative Authorizing ProviderResult TypeResult StatusAmy Forsan PALAB BLOOD ORDERABLES Final ResultPerforming OrganizationAddressCity/State/ZIP CodePhone Number EXTERNAL LAB from Last 3 Months or Most Recently Relevant to Health Maintenance Insurance Care Teams Team MemberRelationshipSpecialtyStart DateEnd Date Eliceo Beltran DO [address] [facility] [place] [address] [place] [address] PCP - GeneralFamily Medicine02/14/24 Eliceo Beltran DO [address] [place] [address] PCP - Medical [place] [employer]07/27/2412
--- OUTSIDE RECORDS SUMMARY | 2025-10-17 08:10 | XMS_ITS | Encounter Summary ---
Author Organization [facility] Address [address] [place] [address] Care Team Providers Care Agribusiness Internship Name Role Phone NirajEliceo kauffman Primary Care Provider [phone] CharlottecarolEliceo Bryant DAY Unavailable [phone] Encounter Details DateTypeDepartmentCare Team (Latest Contact Info)Mekkgppraci88/17/2025Clinisync Result Encounter [facility] Department Unsolicited Nathan Pop DO [address] [place] [address] Social History Tobacco UseTypesPacks/DayYears UsedDateSmoking Tobacco: NeverSmokeless Tobacco: NeverAlcohol UseStandard Drinks/WeekCommentsNever0 (1 standard drink = 0.6 oz pure alcohol)caffeine: 1-2 cups per day, coffee and weyR7860 Health Literacy AnswerDate RecordedHow often do you [...] relatives?Once a week12/29/2024How often do you attend orthodox or mu-ism services?Patient /03/2025Do you belong to any clubs or organizations such as orthodox groups, unions, Quantason or athletic leodan ups, or school groups?No12/29/2024How often do you attend meetings of the clubs or organizations you belong to?Patient dbpcjajt18/03/2025re you , , , , never , [...] all12/29/2024PHQ-2AnswerDate RecordedPatient Health Questionnaire-2 Score0 07/30/2025[facility] [place] [facility] - Occupational Stress QuestionnaireAnswerDate RecordedDo you feel stress - tense, restless, nervous, or anxious, or unable to sleep at night because yourmind is troubled all the time - these days?Only a eugosz4212/29/2024Exercise Vital SignAnswerDate Recorded On average, how many [...] to sleep or slept in 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 [address] Nathan Pop, [address] [place] [address] documented as of this encounter Procedures Procedure NamePriorityDate/TimeAssociated DiagnosisCommentsTBH CREATININERoutine 10/12/2025 8:28 PM EST SRMCOH PROTHROMBIN TIME INR W/O KDJMXttrfgw76/17/2025 8:28 PM EST CCF RXNXnwxpcd43/17/2025 8:28 PM EST CCF RSSGOrmpdzn13/17/2025 8:28 PM EST [facility] XDXRgtkgad85/17/2025 8:28 PM EST ALL URIC RMNBErzqisu17/17/2025 8:28 PM EST ALL JSHAuqetbx83/17/2025 8:28 PM EST ALL CBC WITH AUTO QJVDCifdcga56/17/2025 8:28 PM EST ALL QFJWqsepca72/17/2025 8:28 PM EST TBH URINE T PROTEIN CREAT MXTPMVsemfji31/17/2025 7:05 PM EST TBH UA (CLEAN/CATCH) PHONE OPERATOR/MICRO IF IND.Xzkzydz3510/12/2025 7:05 PM EST documented in this encounter Results * [facility] APTT (10/12/2025 8:28 PM EST)ComponentValueRef RangeTest MethodAnalysis TimePerformed AtPathologist SignaturePARTIAL THROMBOPLASTIN TIME24.522.3 - 36.2 secTBHSpecimen (Source)Anatomical Location / LateralityCollection Method / VolumeCollection TimeReceived Time10/12/2025 8:28 PM EST10/12/2025 8:39 PM EST Narrative CLINISYNC - 10/12/2025 8:59 PM EST Authorizing ProviderResult TypeResult StatusCorey Kiesha DOCLINISYNCFinal Result Performing OrganizationAddressCity/State/ZIP CodePhone Number [facility] * SRMCOH PROTHROMBIN TIME INR W/O [...] Kiesha DOCLINISYNCFinal Result Performing OrganizationAddressCity/State/ZIP CodePhone Number [facility] * ALL LDH (10/12/2025 8:28 PM EST)ComponentValueRef RangeTest MethodAnalysis TimePerformed AtPathologist SignatureLACTATE JLXYTTVGYWCWX63981 - 234 U/LTBH Specimen (Source)Anatomical Location / LateralityCollection Method / Volume Collection TimeReceived Time10/12/2025 8:28 PM EST10/12/2025 8:39 PM EST Narrative CLINISYNC - 10/12/2025 8:59 PM EST Authorizing ProviderResult TypeResult StatusCorey Kiesha DOCLINISYNCFinal Result Performing OrganizationAddressty/State/ZIP CodePhone Number [facility] * CCF ALT (10/12/2025 8:28 PM EST)ComponentValueRef RangeTest MethodAnalysis TimePerformed AtPathologist SignatureALANINE TDWWWXPQWSRMDDOY0520 - 59 U/LTBH Specimen (Source)Anatomical Location / LateralityCollection Method / Volume Collection TimeReceived Time10/12/2025 8:28 PM EST10/12/2025 8:39 PM EST Narrative CLINISYNC - 10/12/2025 8:59 PM EST Authorizing ProviderResult TypeResult StatusCorey Kiesha DOCLINISYNCFinal Result Performing OrganizationAddressCity/State/ZIP CodePhone Number [facility] * CCF AST (10/12/2025 8:28 PM EST)ComponentValueRef RangeTest MethodAnalysis TimePerformed AtPathologist SignatureASPARTATE AMINO CHXJQCEGGNL2375 - 37 U/L TBHSpecimen (Source)Anatomical Location / [...] ProviderResult TypeResult StatusCorey Kiesha DOCLINISYNCFinal Result Performing OrganizationAddGeisinger-Shamokin [facility] Community Hospitalty/State/ZIP CodePhone Number CLINISYNC TB * TBH CREATININE (10/12/2025 8:28 PM EST)ComponentValueRef RangeTest Method Analysis TimePerformed AtPathologist SignatureCREATININE0.740.55 - 1.02 mg/dL TBHTBH EGFR-AF CHADIAN>60>=60 mL/min/1.73m 2TBHTBH EGFR-NON AF CHADIAN>60 >=60 mL/min/1.73m 2TBHSpecimen (Source)Anatomical Location / Laterality Collection Method / VolumeCollection TimeReceived Time10/12/2025 8:28 PM EST 10/12/2025 8:39 PM EST Narrative CLINISYNC - 10/12/2025 8:59 PM EST Authorizing ProviderResult TypeResult StatusCorey Kiesha DOCLINISYNCFinal Result Performing OrganizationAddressCity/State/ZIP CodePhone Number [facility] * ALL BUN (10/12/2025 8:28 PM EST)ComponentValueRef RangeTest MethodAnalysis TimePerformed AtPathologist SignatureBLOOD UREA SFRYBQTE76.07.0 - 18.0 mg/dL TBHSpecimen (Source)Anatomical Location / LateralityCollection Method / Volume Collection TimeReceived Time10/12/2025 8:28 PM EST10/12/2025 8:39 PM EST Narrative CLINISYNC - 10/12/2025 8:59 PM EST Authorizing ProviderResult TypeResult StatusCorey Kiesha DOCLINISYNCFinal Result Performing OrganizationAddressCity/State/ZIP CodePhone Number [facility] * (ABNORMAL) ALL CBC WITH AUTO DIFF (10/12/2025 8:28 PM EST)ComponentValueRef RangeTest MethodAnalysis TimePerformed AtPathologist SignatureTBH WBC12.1(H) 4.0 - 11.0 10 3/uLTBHTBH RBC3.84(L)4.20 - 5.40 10 6/uLTBHTBH HGB11.7(L)12.0 - 16.0 g/dLTBHTBH HCT34.5(L)36.0 - 48.0 %TBHTBH MCV89.881.0 - 99.0 fLTBHTBH MCH 30.526.7 - 34.0 pgTBHTBH MCHC33.929.9 - 35.2 g/dLTBHTBH RDW13.211.0 - 15.0 % TBHTBH RDS325074 - 450 10 3/uLTBHTBH MPV9.69.5 - 13.5 [...] Kiesha DOCLINISYNCFinal Result Performing OrganizationAddressCity/State/ZIP CodePhone Number [facility] * (ABNORMAL) TBH URINE T PROTEIN CREAT RATIO (10/12/2025 7:05 PM EST)Component ValueRef RangeTest MethodAnalysis TimePerformed AtPathologist SignatureTOTAL PROTEIN URINE ULJFHZ36.5(H)<=11.9 mg/dLTBHCREATININE URINE HJQSIU91.2120.00 - 300.00 mg/dLTBHPROTEIN CREATININE RATIO URINE0.16TBHSpecimen (Source) Anatomical Location / LateralityCollection Method / VolumeCollection Time Received Time10/12/2025 7:05 PM EST10/12/2025 10:30 PM EST Narrative CLINISYNC - 10/12/2025 10:40 PM EST Authorizing ProviderResult TypeResult StatusCorey Kiesha DOCLINISYNCFinal Result Performing OrganizationAddressty/State/ZIP CodePhone Number [facility] * TBH UA (CLEAN/CATCH) PHONE OPERATOR/MICRO IF IND. (10/12/2025 7:05 PM EST)ComponentValue Ref [...] Kiesha DOCLINISYNCFinal Result Performing OrganizationAddressCity/State/ZIP CodePhone Number [facility] documented in this encounter Visit Diagnoses Not on filedocumented in this encounter Care Teams Team MemberRelationshipSpecialtyStart DateEnd Date Eliceo Beltran DO [address] [place] [address] [facility] - [facility]24 Eliceo Beltran DO [address] [place] [address] PCP - Medical [place] [employer]07/27/2412documented as of this encounter
--- OUTSIDE RECORDS SUMMARY | 2025-10-17 08:10 | XMS_ITS | Encounter Summary ---
Author Organization [facility] tem Address [id number] [address] [place] [address] Care Team Providers Care Accounting Officer Name Role Phone Cruz Rodríguez MD Primary Care Provider [phone] Encounter Details DateTypeDepartmentCare Team (Latest Contact Info)Esfdiqrhrnf71/10/2025Telephone Maternal- Medicine at [facility] [address] [facility] [place] [phone] Anjana Davalos RN Social History Tobacco UseTypesPacks/DayYears [...] or more drinks on one occasion?Never5ChildcareAnswer Date SlajsqblLdlhywmtoZtiqizn24/13/2019EmploymentAnswerDate RecordedEmployment Nhugoaa2905/08/2019Hunger ScreeningAnswerDate RecordedWithin the past 12 months we worried whether our food would run out before we got money to buy more.Never True09/10/2025Within the past 12 months the food we bought just didn't last and we didn't have money to get more.Never True09/10/2025Purpose - LifeAnswerDate RecordedPurpose and direction in qbxeHxgzhic22/11/2021Estimated Date of YjqwvamrQedpvubgWns69/03/2026Based on last menstrual period of 02/21/2025 (Exact Date)Sex and Gender InformationValueDate RecordedSex Assigned at BirthNot on fileLegal WefXbufna29/07/2019 2:55 PM ESTGender IdentityNot on fileSexual OrientationNot on filedocumented as of this encounter Miscellaneous Notes * Telephone Encounter - Anjana Davalos RN - 10/05/2025 2:39 PM EST Left message for patient to send in blood sugar logs prior to video visit toady in [facility] at 3 PM. Also, Instructed patient to contact [facility] if unable to keep appointment today at [facility], then to call at [phone] option 1 to reschedule. documented in this encounter Plan of Treatment DateTypeDepartmentCare Team (Latest Contact Info)Ufgexwxnumq50/03/2025 11:00 AM ESTAppointment Maternal Medicine [place] [address] [place] [phone] 11/03/2025 2:30 PM ESTOffice Visit Maternal- Medicine at [facility] [address] [place] [phone] Kayleigh Rizzo PA-C [address] [address] documented as of this encounter Visit Diagnoses Diagnosis Insulin controlled gestational diabetes mellitus (GDM) in second trimester documented in this encounter Care Teams Team MemberRelationshipSpecialtyStart DateEnd Date Cruz Rodríguez MD [address] [place] [address] PCP - GeneralFamily Medicine12/02/18documented as of this encounter
--- OUTSIDE RECORDS SUMMARY | 2025-10-17 08:10 | XMS_ITS | Clinical Summary ---
Author Organization [employer] tem Address [id number] [address] [place] [address] Care Team Providers Care Impregnating Tank Operator Name Role Phone Cruz Rodríguez MD Primary Care Provider [phone] Allergies No known active allergies Medications MedicationSigDispense [...] ProblemNoted DateDiagnosed DateEssential hypertension affecting in third vsksjuexk62/10/2025Insulin controlled gestational diabetes mellitus (GDM) in third rxonttzlz63/26/2025Estimated Date of DeliveryCommentsYes 11/28/2025ased on last menstrual period of 02/21/2025 (Exact Date) Encounters DateTypeDepartmentCare YycoOpmyanyudim09/14/2025Orders Only Maternal- Medicine at [facility] [address] [place] [address] Zora Samuels RN Essential hypertension affecting in third trimester (Primary Dx); Insulin controlled gestational diabetes mellitus (GDM) in third trimester 10/08/2025Orders Only Maternal Medicine [place] [address] [facility] [address] [place] [address] Danae Ramirez RN Insulin controlled gestational diabetes mellitus (GDM) in third trimester (Primary Dx); Essential hypertension affecting in third trimester; Encounter for follow-up ultrasound of anatomy; History of pre-eclampsia in prior , currently ; Hx of delivery, currently , second thbrihpqe28/11/2025 2:30 PM ESTTelemedicine Maternal- Medicine at [facility] [address] [place] [address] Kayleigh Rizzo PA-C Insulin controlled gestational diabetes mellitus (GDM) in third trimester (Primary Dx); Essential hypertension affecting in third vcafousxn63/11/2025Travel 10/05/2025Telephone Maternal- Medicine at [facility] [address] [place] [address] Anjana Davalos RN 10/04/20250983Mqvfmy24/03/2025Telephone Maternal- Medicine at [facility] [address] [place] [place] [address] Cha Harris, DIALLO 09/28/2025Orders Only Maternal- Medicine at [facility] [address] [place] [facility] [place] [address] Kayleigh Rizzo PA-C Essential hypertension affecting in third uwsgwuyvn67/27/2025Telephone Maternal- Medicine at [facility] [address] [place] [facility] [place] [address] Verito Gudino LD 09/21/2025Remote Patient Monitoring Maternal- Medicine at [facility] [address] [place] [facility] [place] [address] Kayleigh Rizzo, PA-C Insulin controlled gestational diabetes mellitus (GDM) in third trimester (Primary Dx); Essential hypertension affecting in third tmicfajss35/23/2025Orders Only Maternal- Medicine at [facility] [address] [place] [facility] [place] [address] Camila Arciniega APRN-MARIBEL Essential hypertension affecting in third /22/2025Telephone Maternal- Medicine at [facility] [address] [place] [facility] [place] [address] Cha Harris, DIALLO 09/15/2025Orders Only Maternal- Medicine at [facility] [address] [place] [place] [address] Kayleigh Rizzo PA-C Essential hypertension affecting in third njddhrpab56/16/2025 11:00 AM EDTTelemedicine Maternal Medicine [place] [address] [facility] [address] [place] [address] Madhuri Monroy MD 28 weeks gestation of (Primary Dx); Insulin controlled gestational diabetes mellitus (GDM) in second trimester; Essential hypertension affecting in third ahtltpgko16/16/2025Orders Only Maternal- Medicine at [facility] [address] [place] [address] Zora Samuels, DIALLO Essential hypertension affecting in third trimester (Primary Dx); Insulin controlled gestational diabetes mellitus (GDM) in second trimester; Encounter for follow-up ultrasound of pzfgovj9609/10/20253293Qjmvrr61/10/2025 3:00 PM EDTOffice Visit Maternal- Medicine at [facility] [address] [place] [address] Jean Carlos Pina MD Diet controlled gestational diabetes mellitus (GDM) in second trimester (Primary Dx); Essential hypertension affecting in third unlmbgseg32/08/2025Travel 09/01/2025Telephone Maternal- Medicine at [facility] [address] [place] [address] Cha Harris RN 08/24/2025 1:30 PM EDTSupport Visit Maternal- Medicine at [facility] [address] [place] [address] Teena Sarmiento RN Kerline Steiner RD Gestational diabetes mellitus (GDM) in second trimester, gestational diabetes method of control qiqkpabmwig85/28/8241Ovstlt82/27/0056Ydycha32/26/2025bstract Maternal- Medicine at [facility] [address] [place] [address] External, Scanning Provider 08/19/2025Orders Only Maternal- Medicine at [facility] [address] [place] [address] Ref Prov, Not In System 08/18/2025bstract Maternal- Medicine at [facility] [address] [place] [address] Madhuri Monroy MD 08/18/2025Orders Only Maternal- Medicine at [facility] [address] [address] Khalida Garrett RN History of pre-eclampsia [...] or more drinks on one occasion?Never5ChildcareAnswer Date RzecckbqGcxmurayuNrvoylx25/13/2019EmploymentAnswerDate RecordedEmployment Hiqhsho9705/08/2019Hunger ScreeningAnswerDate RecordedWithin the past 12 months we worried whether our food would run out before we got money to buy more.Never True09/10/2025Within the past 12 months the food we bought just didn't last and we didn't have money to get more.Never True09/10/2025Purpose - LifeAnswerDate RecordedPurpose and direction in xklqUblghpk04/11/2021Estimated Date of VuzcbcknZknmswljRsr54/03/2026Based on last menstrual period of 02/21/2025 (Exact Date)Sex and Gender InformationValueDate RecordedSex Assigned at BirthNot on fileLegal MjcYpaepy29/07/2019 2:55 PM ESTGender IdentityNot on fileSexual OrientationNot on file Last Filed Vital Signs Vital SignReadingTime TakenCommentsBlood Zbkzkktr450/801 10:34 AM EDT Vrvvc52934/10/2025 2:48 PM EDTTemperature--Respiratory Quru686612/10/2018 11:10 AM ESTOxygen Ftuyazlrvu18%12/10/2018 11:10 AM ESTInhaled Oxygen Concentration-- Whyzwt27.6 kg (160 lb)09/10/2025 10:34 AM VSWTcvabs863.5 cm (5' 2.01 )09/04/2025 2:48 PM EDTBody Mass Index29.261 2:48 PM EDT Plan of Treatment DateTypeDepartmentCare Team (Latest Contact Info)Jmwsrabfghx53/03/2025 11:00 AM ESTAppointment Maternal Medicine [facility] [address] [place] [address] 11/03/2025 2:30 PM ESTOffice Visit Maternal- Medicine at [facility] [address] [place] [address] Kayleigh Rizzo, FORREST [address] [address] Health MaintenanceDue DateLast DoneCommentsDepression Jlcyyxsmu49/08/2007dult BMI Follow Up Plan2013DTaP,Tdap and Td Vaccines (7 - Td or Tdap)2024 2014, 05/03/2000, 12/29/1997, Additional history existsInfluenza Vaccine RSV ( or age 60+ yrs) (1 - Risk 1-dose series)10/03/2025dult BMI Rppvsdxad20Tobacco Screening Pap Smear Medical Devices Not on file Procedures Procedure NamePriorityDate/TimeAssociated DiagnosisCommentsUS MFM OB FOLLOW-UP, 1 NLLYUDxonveq23/13/2025 8:55 AM EST Essential hypertension affecting in third trimester Insulin controlled gestational diabetes mellitus (GDM) in second trimester Encounter for follow-up ultrasound of anatomy US MFM COMPREHENSIVE ANATOMIC NNTUBAPyulicy84/16/2025 10:56 AM EDT History of pre-eclampsia in prior , currently GLUCOSE TOLERANCE, 3 YZHHQYtinmbe15/20/2025 GLUCOSE TOLERANCE, FEUZAHOZpfimbg72/20/2025 GLUCOSE TOLERANCE, 1 TNOLRahvmrw35/20/2025 SECOND HOUR GLUCOSE TOLERANCE 100 GM NVXUHwavwid58/20/2025 ULTRASOUND MMQUTEAqhlqot79/17/2025 3:39 PM EDTGLU 1H POST 50G LOADRoutine [...] REYNAGA : 1995 SEX: F Accession Number: [id number] ORDERING PHYSICIAN: MADHURI MONROY REFERRING PHYSICIAN: JONY MEJÍA Coding Procedures ? 45250: Ultrasound, uterus, real time with image documentation, follow up,transabdominal ? approach per fetus Indication Screening for follow-up survey, Gestational diabetes, Chronic hypertension affecting , History of prior with pre-eclampsia , History of prior with delivery , Previous surgery to cervix -(D&C). History OB History ? 2. Para 1 ? F2G6C5J1 Current Cell free DNA ?Low Risk analysis [...] (oz) ? 11 oz EFW by: ?Hadlock (NRE-CH-RG-FL) Extended Tibia ??52.5 mm 31w 1d 20% [employer] Processor ? 2.7 mm Head / Face / Neck Cephalic index 0.82 ? 75% Nicolaides Nasal bone: ?documented previously Extremities / Bony Struc FL / BPD ? 0.66 FL / HC ?0.19 FL / AC ?0.20 Other Structures FHR ?141 bpm Anatomy The following structures appear normal: Head/Neck: Cranium. Lateral ventricles. Cavum septi pellucidi. Parenchyma. Heart/Thorax: 4-chamber view. 3-vessel view. 4-xouess-vwjayqr view. Bicaval view. Cardiac rhythm. ? Diaphragm. [...] MVP measures 5.1 cm. Recommendations Please see [facility] recommendations from prior clinical and/or ultrasound [...] REYNAGA : 1995 SEX: F Accession Number: [id number] ORDERING PHYSICIAN: MADHURI MONROY REFERRING PHYSICIAN: JONY MEJÍA Coding Procedures 58879: Ultrasound, uterus, real time with image documentation, follow up, transabdominal approach per fetus Indication Screening for follow-up survey, Gestational diabetes, Chronic hypertension affecting , History of prior with pre-eclampsia , History of prior with delivery ,Previous surgery to cervix -(D&C). History OB History 2. Para 1 [id number] Current Cell free DNA Low Risk analysis [...] by LMP 32 w + 5 d WIE by LMP: 11/28/2025 Previous Ultrasound on: 05/01/2025 [...] EFW (oz) 11 oz EFW by: Hadlock (QZY-MV-AY-FL) Extended Tibia 52.5 mm 31w 1d 20% [employer]or 2.7 mm Head / Face / Neck Cephalic index 0.82 75% Nicolaides Nasal bone: documented previously Extremities / Bony Struc FL / BPD 0.66 FL / HC 0.19 FL / AC 0.20 Other Structures FHR 141 bpm Anatomy The following structures appear normal: Head/Neck: Cranium. Lateral ventricles. Cavum septi pellucidi.Parenchyma. Heart/Thorax: 4-chamber view. 3-vessel view. 9-bvhzno-bxjeuii view.Bicaval view. Cardiac rhythm. Diaphragm. Abdomen: Stomach. [...] MVP measures 5.1 cm. Recommendations Please see [facility] recommendations from prior clinical and/or ultrasoundreport documentation. The patient is scheduled in four to six week(s) to complete anatomicsurvey. Subsequent follow up or other follow up as clinically determined byprimary OB provider unless otherwise specified by M. Results forwarded to ordering provider so they can follow up with thepatient as necessary. Authorizing ProviderResult TypeResult StatusMadhuri Monroy [facility] ORDERABLESFinal Result * 2nd hr Glucose Tolerance 100 gm load (08/15/2025)ComponentValueRef RangeTest MethodAnalysis TimePerformed AtPathologist SignatureGlucose Tolerance Test 2 Rhcv119VBMPMVNQ TRANSCRIBED RESULTSSpecimen (Source)Anatomical Location / LateralityCollection Method / VolumeCollection TimeReceived TimeBloodVenous blood / Unknown Narrative Authorizing ProviderResult TypeResult StatusNot In System Ref ProvLAB BLOOD ORDERABLESFinal ResultPerforming OrganizationAddressCity/State/ZIP CodePhone Number MANUALLY TRANSCRIBED RESULTS * Glucose tolerance, 1 hour (08/15/2025)ComponentValueRef RangeTest Method Analysis TimePerformed AtPathologist SignatureGlucose Tolerance Test 1 Ryqk240 MANUALLY TRANSCRIBED RESULTSSpecimen (Source)Anatomical Location / Laterality Collection Method / VolumeCollection TimeReceived TimeBloodVenous blood / Unknown Narrative Authorizing ProviderResult TypeResult StatusNot In System Ref VolunteerSpotLAB BLOOD ORDERABLESFinal ResultPerforming OrganizationAddressCity/State/ZIP CodePhone Number MANUALLY TRANSCRIBED RESULTS * Glucose tolerance, 3 hours (08/15/2025)ComponentValueRef RangeTest Method Analysis TimePerformed AtPathologist SignatureGlucose Tolerance Test 3 Ogcq371 MANUALLY TRANSCRIBED RESULTSSpecimen (Source)Anatomical Location / Laterality Collection Method / VolumeCollection TimeReceived TimeBloodVenous blood / Unknown Narrative Authorizing ProviderResult TypeResult StatusNot In System Ref ProvLAB BLOOD ORDERABLESFinal ResultPerforming OrganizationAddressCity/State/ZIP CodePhone Number MANUALLY TRANSCRIBED RESULTS * Glucose, tolerance fasting (08/15/2025)ComponentValueRef RangeTest Method Analysis TimePerformed AtPathologist SignatureGlucose Tolerance Test Wbanefn49 MANUALLY TRANSCRIBED RESULTSSpecimen (Source)Anatomical Location / Laterality [...] TimePerformed AtPathologist SignatureGlucose, 1 hr PP 50GM tlko200 MANUALLY TRANSCRIBED RESULTSSpecimen (Source)Anatomical Location / Laterality Collection Method / VolumeCollection TimeReceived TimeBloodVenous blood / Unknown Narrative Authorizing ProviderResult TypeResult StatusNot In System Ref ProvLAB BLOOD ORDERABLESFinal ResultPerforming OrganizationAddressCity/State/ZIP CodePhone Number MANUALLY TRANSCRIBED RESULTS from Last 3 Months Insurance Care Teams Team MemberRelationshipSpecialtyStart DateEnd Date Cruz Rodríguez MD [address] [place] [address] [facility]
--- OUTSIDE RECORDS SUMMARY | 2025-10-17 08:10 | XMS_ITS | Encounter Summary ---
Author Organization [facility] Address [address] [place] [address] Care Team Providers Care Software Project Lead Name Role Phone RubyEliceo Bryant DAY Primary Care Provider [phone] Ruby Eliceo Hurtado DO Unavailable [phone] Encounter Details DateTypeDepartmentCare Team (Latest Contact Info)Hhoxovxjwej06/18/2025Travel Social History Tobacco UseTypesPacks/DayYears UsedDateSmoking Tobacco: NeverSmokeless Tobacco: NeverAlcohol UseStandard Drinks/WeekCommentsNever0 (1 standard drink = 0.6 oz pure alcohol)caffeine: 1-2 cups per day, coffee and rrhA7688 Health Literacy AnswerDate RecordedHow often do you [...] relatives?Once a week12/29/2024How often do you attend episcopalian or sikh services?Patient awyqeljt91/03/2025Do you belong to any clubs or organizations such as episcopalian groups, unions, fraternal or athletic leodan ups, or school groups?No12/29/2024How often do you attend meetings of the clubs or organizations you belong to?Patient ijkifqgo02/03/2025re you , , , , never , [...] RecordedPatient Health Questionnaire-2 Score0 07/30/2025[facility] [place] [facility] Occupational Health - Occupational Stress QuestionnaireAnswerDate RecordedDo you feel stress - tense, restless, nervous, or anxious, or unable to sleep at night because yourmind is troubled all the time - these days?Only a czdjgp5212/29/2024Exercise Vital SignAnswerDate Recorded On average, how many [...] steady place to sleep or slept in [facility] (including now)?No09/19/2023Housing Stability Vital SignAnswerDate RecordedIn [...] the highest degree you have received?High school jsayqjok26/29/2023 Estimated Date of KcqscrtiKbtelfaoXfa52/03/2026ased on last menstrual period of 02/21/2025Sex and Gender InformationValueDate RecordedSex Assigned at BirthNot on fileLegal AshYwmfmn25/15/2023 7:18 PM EDTGender IdentityNot on file Sexual OrientationNot on 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 Not on fileNot on fileNot on filedocumented as of this encounter Plan of Treatment DateTypeDepartmentCare Team (Latest Contact Info)Nhhiparmewn44/04/2025 9:00 AM ESTRoutine [facility] [place] [facility] [address] [place] [address] Nathan Pop, DO [address] [place] [address] [place] [address] documented as of this encounter Visit Diagnoses Not on filedocumented in this encounter Care Teams Team MemberRelationshipSpecialtyStart DateEnd Date Eliceo Beltran DO [address] [place] [address] PCP - GeneralFamily Medicine02/14/24 Eliceo Beltran DO [address] [place] [address] PCP - Medical [place] [employer]07/27/2412documented as of this encounter
--- OUTSIDE RECORDS SUMMARY | 2025-10-17 08:10 | XMS_ITS | Encounter Summary ---
Author Organization [employer] tem Address [id number] [address] [place] [address] Care Team Providers Care Rrts Name Role Phone Cruz Rodríguez MD Primary Care Provider [phone] Encounter Details DateTypeDepartmentCare Team (Latest Contact Info)Jlylzovbxxx59/11/2025Travel Social History Tobacco UseTypesPacks/DayYears UsedDateSmoking Tobacco: NeverSmokeless Tobacco: NeverAlcohol UseStandard Drinks/WeekCommentsNo0 (1 standard drink = 0.6 oz pure alcohol)AUDIT-CAnswerDate RecordedQ1: How often do you have a drink containing alcohol?Never09/10/2025Q2: How many drinks containing alcohol do you have on a typical day when you are drinking?Patient does not drink09/10/2025Q3: How often do you have six or more drinks on one occasion?Never09/10/2025hildcareAnswer Date AyoqhthuJgcdplxqrYnmsbuz05/13/2019EmploymentAnswerDate RecordedEmployment Rninsdw7905/08/2019Hunger ScreeningAnswerDate RecordedWithin the past 12 months we worried whether our food would run out before we got money to buy more.Never True09/10/2025Within the past 12 months the food we bought just didn't last and we didn't have money to get more.Never True09/10/2025Purpose - LifeAnswerDate RecordedPurpose and direction in xqygHqlxohk93/11/2021Estimated Date of TqdoklknUfvlyvuqAag78/03/2026Based on last menstrual period of 02/21/2025 (Exact Date)Sex and Gender InformationValueDate RecordedSex Assigned at BirthNot on fileLegal CagFhayqw13/07/2019 2:55 PM ESTGender IdentityNot on fileSexual OrientationNot on filedocumented as of this encounter Plan of Treatment DateTypeDepartmentCare Team (Latest Contact Info)Lzsehavnvta08/03/2025 11:00 AM ESTAppointment Maternal Medicine [place] [address] [facility] [address] [place] [address] 11/03/2025 2:30 PM ESTOffice Visit Maternal- Medicine at [facility] [address] [place] [address] Kayleigh Rizzo, PA-C [address] [address] documented as of this encounter Visit Diagnoses Not on filedocumented in this encounter Care Teams Team MemberRelationshipSpecialtyStart DateEnd Date Cruz Rodríguez MD [address] [place] [address] PCP - GeneralFamily Medicine12/02/18documented as of this encounter
[2025-10-17 08:30] VITALS: BP 134/71; PULSE 93; TEMP 36.9
== END 2025-10-17 08:56 | disposition home or self-care (01) ==
LOC: US 08:06 → FBC 08:08
PROVIDERS: Family Provider Family Medicine; PCP Family Medicine; Visit Provider Nurse Practitioner Family
DX: O24.419 Gestational diabetes mellitus in pregnancy, unspecified control (principal); Z3A.34 34 weeks gestation of pregnancy
CPT/HCPCS: 76818

== ENCOUNTER 2025-10-21 10:02 | Outpatient (OUT) | payer OTHER, SELFPAY ==
--- OUTSIDE RECORDS SUMMARY | 2025-10-14 15:30 | XMS_ITS | Encounter Summary ---
Author Organization [facility] Address [address] [place] [address] Care Team Providers Care Geospatial Systems Integrator Name Role Phone CharlotteEliceo medina Primary Care Provider [phone] Charlottecarol Eliceo Hurtado DO Unavailable [phone] Encounter Details DateTypeDepartmentCare Team (Latest Contact Info)Mypphexglgb62/19/2025 3:30 PM ESTRoutine [facility] [place] [facility] [address] [place] [phone] Nathan Pop DO [address] [facility] [address] [address] [place], [facility]11 33 weeks gestation of ([facility]); Third trimester ([facility]) Social History Tobacco UseTypesPacks/DayYears UsedDateSmoking Tobacco: NeverSmokeless Tobacco: NeverAlcohol UseStandard Drinks/WeekCommentsNever0 (1 standard drink = 0.6 oz pure alcohol)caffeine: 1-2 cups per day, coffee and [id number] Health Literacy AnswerDate RecordedHow often do you [...] week12/29/2024How often do you attend zoroastrianism or restorationist services?Patient cpgezksj23/03/2025Do you belong to any clubs or organizations such as zoroastrianism groups, unions, fraCanvas Networks or athletic leodan ups, or school [...] hard at all12/29/2024PHQ-2AnswerDate RecordedPatient Health Questionnaire-2 Score0 07/30/2025[facility] [place] of Occupational Health - Occupational Stress QuestionnaireAnswerDate RecordedDo you feel stress - tense, restless, nervous, or anxious, or unable to sleep at night because yourmind is troubled all the time - these days?Only a jmjdhl3812/29/2024Exercise Vital SignAnswerDate Recorded On average, how many [...] place to sleep or slept in [facility] (including now)?No09/19/2023Housing Stability Vital SignAnswerDate [...] the highest degree you have received?High school beppxrpr42/29/2023 Estimated Date of ZaoeefejHrqvlzjcVvx75/03/2026ased on last menstrual period of 02/21/2025Sex and Gender InformationValueDate RecordedSex Assigned at BirthNot on fileLegal GthPpqhds20/15/2023 7:18 PM EDTGender IdentityNot on file Sexual OrientationNot on 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 Not on fileNot on fileNot on filedocumented as of this encounter Last Filed Vital Signs Vital SignReadingTime TakenCommentsBlood Zeltjybg751/8410/14/2025 3:29 PM EST Pulse--Temperature--Respiratory Rate--Oxygen Saturation--Inhaled Oxygen Concentration--Qwzqrv34.3 kg (168 lb 1.9 oz)10/14/2025 3:29 PM ESTHeight--Body Mass Index30.75007/30/2025 3:36 PM EDTdocumented in this encounter Plan of Treatment DateTypeDepartmentCare Team (Latest Contact Info)Apwsaufaeiv61/04/2025 9:00 AM ESTRoutine [facility] [place] [facility] [address] [place] [phone] Nathan Pop DO [address] [place] [address] documented as of this encounter Procedures Procedure NamePriorityDate/TimeAssociated DiagnosisCommentsPOCT URINALYSIS QSFBJICGXobguvv37/19/2025 3:40 PM EST 33 weeks gestation of ([facility]) Third trimester ([facility]) documented in this encounter Results * [...] / LateralityCollection Method / VolumeCollection Time Received SpuwEpwim95/19/2025 3:40 PM EST Narrative Authorizing ProviderResult TypeResult StatusCorey Kiesha DOPOINT OF CARE TEST ENTER/EDIT ORDERABLESFinal Result documented in this encounter Visit Diagnoses Diagnosis 33 weeks gestation of ([facility]) Third trimester ([facility]) state, incidental documented in this encounter Care Teams Team MemberRelationshipSpecialtyStart DateEnd Date Eliceo Beltran DO [address] [place] [address] PCP - GeneralFamily Medicine02/14/24 Eliceo Beltran DO [address] [place] [address] PCP - Medical [place] [employer]07/27/2412documented as of this encounter
--- OUTSIDE RECORDS SUMMARY | 2025-10-21 10:07 | XMS_ITS | Encounter Summary ---
Author Organization [facility] Address [address] [place] [address] Care Team Providers Care Spudder Name Role Phone Eliceo Beltran DO Primary Care Provider [phone] CharlottegeovaniEliceo kauffman Unavailable [phone] Encounter Details DateTypeDepartmentCare Team (Latest Contact Info)Zrlbzgqvpnp19/14/2025bstract [facility] [place] [facility] [address] [facility] [place] [address] Nathan Pop DO [address] [facility] [address] [place], [facility] Social History Tobacco UseTypesPacks/DayYears UsedDateSmoking Tobacco: NeverSmokeless Tobacco: NeverAlcohol UseStandard Drinks/WeekCommentsNever0 (1 standard drink = 0.6 oz pure alcohol)caffeine: 1-2 cups per day, coffee and pwtN8065 Health Literacy AnswerDate RecordedHow often do you [...] relatives?Once a week12/29/2024How often do you attend buddhist or baptism services?Patient mvauqjgz29/03/2025Do you belong to any clubs or organizations such as buddhist groups, unions, sportif225 or athletic leodan ups, or school groups?No12/29/2024How [...] Questionnaire-2 Score0 07/30/2025[facility] [place] of Occupational Health - Occupational Stress QuestionnaireAnswerDate RecordedDo you feel stress - tense, restless, nervous, or anxious, or unable to sleep at night because yourmind is troubled all the time - these days?Only a aagjep9712/29/2024Exercise Vital SignAnswerDate Recorded On average, how many [...] place to sleep or slept in [facility] (including now)?No09/19/2023Housing Stability Vital SignAnswerDate [...] the highest degree you have received?High school olurimui01/29/2023 Estimated Date of CtkrpyvxEuenvzvuTar47/03/2026ased on last menstrual period of 02/21/2025Sex and Gender InformationValueDate RecordedSex Assigned at BirthNot on fileLegal AsrYlhnkx45/15/2023 7:18 PM EDTGender IdentityNot on file Sexual OrientationNot on 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 Not on fileNot on fileNot on filedocumented as of this encounter Plan of Treatment DateTypeDepartmentCare Team (Latest Contact Info)Vrjdtkmblre23/04/2025 9:00 AM ESTRoutine [facility] [place] [facility] [address] [facility] [place] [address] Nathan Pop DO [address] [facility] [place] [address] documented as of this encounter Visit Diagnoses Not on filedocumented in this encounter Care Teams Team MemberRelationshipSpecialtyStart DateEnd Date Eliceo Beltran DO [address] [facility] [address] [place] [address] PCP - GeneralFamily Medicine02/14/24 Eliceo Beltran DO [address] [facility] [address] [place] [address] PCP - Medical [place] [employer]07/27/2412documented as of this encounter
--- OUTSIDE RECORDS SUMMARY | 2025-10-21 10:07 | XMS_ITS | Patient Health Record ---
Author Organization [facility] Address [address] [place] [address] Care Team Providers Care Hardwood Floor Installation Helper Name Role Phone Cruz Rodríguez Primary Care [...] Quad PFS (0.5mL Admin) 18 y/o & olraiXqhpcac51/30/3657Ytmxpour7847 Fluzone Quad PFS (0.5mL Admin) 6 months & vhcuiAzomcam01/17/7495Cjuqifci7100 Fluzone, 6mo & older, Quad MDV (0.5mL Admin)Xqlfity5707/16/20236871Mxccdths5473 Fluzone, 6mo & older, Quad PFS (0.5mL Admin)Zkfskds46/18/2023Contraindications z2023 Fluzone, 6mo & older, Quad PFS (0.5mL Admin)Ubreemn61/20/2024Refused Social History Tobacco Use: Social History Observation [...] Status W/U Status Risk Notes Problem Tachycardia (5770061) Tachycardia (R00.0) ActiveconfirmedProblemObesity (577077604)Obesity (BMI 30-39.9) (E66.9)Active confirmed Plan Of Treatment No Information Insurance Providers Payer Name Payer Address Payer Phone Subscriber Number Group Number Insured Name Patient Relationship to Insured Coverage Start Date Coverage End Date [facility] [facility] [address] [place] [address] [id number] Driss Woodruff Self - patient is the insured Medical [place] [facility] [address] [place] [phone] [id number], AlexisSelf - patient is the insured Medical (General) History Medical History History ICD Code Tachycardia R00.0 Surgical History Surgery Date(Month/Year) right shoulder surgery endometriosisappendectomyHospitalization History Reason Date(Month/Year) surgeries childbirth
--- OUTSIDE RECORDS SUMMARY | 2025-10-21 10:07 | XMS_ITS | Encounter Summary ---
Author Organization [facility] Address [address] [place] [address] Care Team Providers Care Underwater Roboticist Name Role Phone NirajEliceo kauffman Primary Care Provider [phone] CharlottecarolEliceo Bryant DAY Unavailable [phone] Encounter Details DateTypeDepartmentCare Team (Latest Contact Info)Lbxuradfiyl26/17/2025Clinisync Result Encounter [facility] External Department Unsolicited Nathan Pop DO [address] [place] [address] Social History Tobacco UseTypesPacks/DayYears UsedDateSmoking Tobacco: NeverSmokeless Tobacco: NeverAlcohol UseStandard Drinks/WeekCommentsNever0 (1 standard drink = 0.6 oz pure alcohol)caffeine: 1-2 cups per day, coffee and [id number] Health Literacy AnswerDate RecordedHow often do you [...] relatives?Once a week12/29/2024How often do you attend mormon or adventism services?Patient wtamhupl66/03/2025Do you belong to any clubs or organizations such as mormon groups, unions, [employer] or athletic leodan ups, or school groups?No12/29/2024How often do you attend meetings of the clubs or organizations you belong to?Patient dufpwdyj77/03/2025re you , , , , never , [...] RecordedPatient Health Questionnaire-2 Score0 07/30/2025[facility] [place] of Occupational Health - Occupational Stress QuestionnaireAnswerDate RecordedDo you feel stress - tense, restless, nervous, or anxious, or unable to sleep at night because yourmind is troubled all the time - these days?Only a cueywl7412/29/2024Exercise Vital SignAnswerDate Recorded On average, how many [...] place to sleep or slept in [facility] (including now)?No09/19/2023Housing Stability Vital SignAnswerDate RecordedIn [...] the highest degree you have received?High school lbrvkvur84/29/2023 Estimated Date of LqjzcmlmOmcervqkHek06/03/2026ased on last menstrual period of 02/21/2025Sex and Gender InformationValueDate RecordedSex Assigned at BirthNot on fileLegal GqxMjzltq08/15/2023 7:18 PM EDTGender IdentityNot on file Sexual OrientationNot on 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 [place] [address] Nathan Pop, [address] [place] [address] documented as of this encounter Procedures Procedure NamePriorityDate/TimeAssociated DiagnosisCommentsTBH CREATININERoutine 10/12/2025 8:28 PM EST SRMCOH PROTHROMBIN TIME INR W/O AFJEWduqssn19/17/2025 8:28 PM EST CCF KUJGgulqbo58/17/2025 8:28 PM EST [facility] CLHGBktuolm77/17/2025 8:28 PM EST [facility]CF YPOWsidyqx75/17/2025 8:28 PM EST ALL URIC WAEUKzjzgfs48/17/2025 8:28 PM EST ALL NWEMtyllud70/17/2025 8:28 PM EST ALL CBC WITH AUTO KQWLMhicoyp59/17/2025 8:28 PM EST ALL JQDAbeluvm63/17/2025 8:28 PM EST TBH URINE T PROTEIN CREAT INXYMJqvbiux83/17/2025 7:05 PM EST TBH UA (CLEAN/CATCH) CUSTOMER SERVICE REPRESENTATIVE TEACHER/MICRO IF IND.Ycuxkgs5710/12/2025 7:05 PM EST documented in this encounter Results * CCF APTT (10/12/2025 8:28 PM EST)ComponentValueRef RangeTest MethodAnalysis TimePerformed AtPathologist SignaturePARTIAL THROMBOPLASTIN TIME24.522.3 - 36.2 secTBHSpecimen (Source)Anatomical Location / LateralityCollection Method / VolumeCollection TimeReceived Time10/12/2025 8:28 PM EST10/12/2025 8:39 PM EST Narrative CLINISYNC - 10/12/2025 8:59 PM EST Authorizing ProviderResult TypeResult StatusCorey Kiesha DOCLINISYNCFinal Result Performing OrganizationAddressCity/State/ZIP CodePhone Number [facility] * SRMCOH PROTHROMBIN TIME INR W/O [...] Kiesha DOCLINISYNCFinal Result Performing OrganizationAddressCity/State/ZIP CodePhone Number [facility] * ALL LDH (10/12/2025 8:28 PM EST)ComponentValueRef RangeTest MethodAnalysis TimePerformed AtPathologist SignatureLACTATE SGCWLOSCJMVFZ96961 - 234 U/LTBH Specimen (Source)Anatomical Location / LateralityCollection Method / Volume Collection TimeReceived Time10/12/2025 8:28 PM EST10/12/2025 8:39 PM EST Narrative CLINISYNC - 10/12/2025 8:59 PM EST Authorizing ProviderResult TypeResult StatusCorey Kiesha DOCLINISYNCFinal Result Performing OrganizationAddressty/State/ZIP CodePhone Number [facility] * CCF ALT (10/12/2025 8:28 PM EST)ComponentValueRef RangeTest MethodAnalysis TimePerformed AtPathologist SignatureALANINE AHKLUTQFHULKYGYY1928 - 59 U/LTBH Specimen (Source)Anatomical Location / LateralityCollection Method / Volume Collection TimeReceived Time10/12/2025 8:28 PM EST10/12/2025 8:39 PM EST Narrative CLINISYNC - 10/12/2025 8:59 PM EST Authorizing ProviderResult TypeResult StatusCorey Kiesha DOCLINISYNCFinal Result Performing OrganizationAddressCity/State/ZIP CodePhone Number [facility] * CCF AST (10/12/2025 8:28 PM EST)ComponentValueRef RangeTest MethodAnalysis TimePerformed AtPathologist SignatureASPARTATE AMINO CINEBPBYNCJ2394 - 37 U/L TBHSpecimen (Source)Anatomical Location / [...] ProviderResult TypeResult StatusCorey Kiesha DOCLINISYNCFinal Result Performing OrganizationAddChan [facility]/State/ZIP CodePhone Number CLINISYNC TB * TBH CREATININE (10/12/2025 8:28 PM EST)ComponentValueRef RangeTest Method Analysis TimePerformed AtPathologist SignatureCREATININE0.740.55 - 1.02 mg/dL TBHTBH EGFR-AF WALLISIAN>60>=60 mL/min/1.73m 2TBHTBH EGFR-NON AF WALLISIAN>60 >=60 mL/min/1.73m 2TBHSpecimen (Source)Anatomical Location / Laterality Collection Method / VolumeCollection TimeReceived Time10/12/2025 8:28 PM EST 10/12/2025 8:39 PM EST Narrative CLINISYNC - 10/12/2025 8:59 PM EST Authorizing ProviderResult TypeResult StatusCorey Kiesha DOCLINISYNCFinal Result Performing OrganizationAddressCity/State/ZIP CodePhone Number [facility] * ALL BUN (10/12/2025 8:28 PM EST)ComponentValueRef RangeTest MethodAnalysis TimePerformed AtPathologist SignatureBLOOD UREA WKFLXYUW03.07.0 - 18.0 mg/dL TBHSpecimen (Source)Anatomical Location / LateralityCollection Method / Volume Collection TimeReceived Time10/12/2025 8:28 PM EST10/12/2025 8:39 PM EST Narrative CLINISYNC - 10/12/2025 8:59 PM EST Authorizing ProviderResult TypeResult StatusCorey Kiesha DOCLINISYNCFinal Result Performing OrganizationAddressCity/State/ZIP CodePhone Number [facility] * (ABNORMAL) ALL CBC WITH AUTO DIFF (10/12/2025 8:28 PM EST)ComponentValueRef RangeTest MethodAnalysis TimePerformed AtPathologist SignatureTBH WBC12.1(H) 4.0 - 11.0 10 3/uLTBHTBH RBC3.84(L)4.20 - 5.40 10 6/uLTBHTBH HGB11.7(L)12.0 - 16.0 g/dLTBHTBH HCT34.5(L)36.0 - 48.0 %TBHTBH MCV89.881.0 - 99.0 fLTBHTBH MCH 30.526.7 - 34.0 pgTBHTBH MCHC33.929.9 - 35.2 g/dLTBHTBH RDW13.211.0 - 15.0 % TBHTBH XQW818843 - 450 10 3/uLTBHTBH MPV9.69.5 - 13.5 [...] Result Performing OrganizationAddressCity/State/ZIP CodePhone Number [facility] * (ABNORMAL) TBH URINE T PROTEIN CREAT RATIO (10/12/2025 7:05 PM EST)Component ValueRef RangeTest MethodAnalysis TimePerformed AtPathologist SignatureTOTAL PROTEIN URINE OSJHZJ61.5(H)<=11.9 mg/dLTBHCREATININE URINE NQMMWQ78.2120.00 - 300.00 mg/dLTBHPROTEIN CREATININE RATIO URINE0.16TBHSpecimen (Source) Anatomical Location / LateralityCollection Method / VolumeCollection Time Received Time10/12/2025 7:05 PM EST10/12/2025 10:30 PM EST Narrative CLINISYNC - 10/12/2025 10:40 PM EST Authorizing ProviderResult TypeResult StatusCorey Kiesha DOCLINISYNCFinal Result Performing OrganizationAddressty/State/ZIP CodePhone Number [facility] * TBH UA (CLEAN/CATCH) CUSTOMER SERVICE REPRESENTATIVE TEACHER/MICRO IF IND. (10/12/2025 7:05 PM EST)ComponentValue Ref [...] Result Performing OrganizationAddressCity/State/ZIP CodePhone Number [facility] documented in this encounter Visit Diagnoses Not on filedocumented in this encounter Care Teams Team MemberRelationshipSpecialtyStart DateEnd Date Eliceo Beltran DO [address] [place] [address] [facility] - [facility]24 Eliceo Beltran DO [address] [place] [address] PCP - Medical [place]07/27/2412documented as of this encounter
--- OUTSIDE RECORDS SUMMARY | 2025-10-21 10:07 | XMS_ITS | Encounter Summary ---
Author Organization [facility] Address [address] [place] [address] Care Team Providers Care Senior Product Designer Name Role Phone Eliceo Beltran DO Primary Care Provider [phone] CharlottecarolEliceo Unavailable [phone] Encounter Details DateTypeDepartmentCare Team (Latest Contact Info)Fvgtjciqpte36/19/2025Bamboo flowsheet [facility]ET[facility] [place] [facility] [address] [place] [phone] Nathan Pop DO [address], [place] [address] Social History Tobacco UseTypesPacks/DayYears UsedDateSmoking Tobacco: NeverSmokeless Tobacco: NeverAlcohol UseStandard Drinks/WeekCommentsNever0 (1 standard drink = 0.6 oz pure alcohol)caffeine: 1-2 cups per day, coffee and gfhW9538 Health Literacy AnswerDate RecordedHow often do you [...] relatives?Once a week12/29/2024How often do you attend restorationist or judaism services?Patient slsaooky50/03/2025Do you belong to any clubs or organizations such as restorationist groups, unions, [employer] or athletic leodan ups, or school groups?No12/29/2024How often do you attend meetings of the clubs or organizations you belong to?Patient rjeektog35/03/2025re you , , , , never , [...] Health Questionnaire-2 Score0 07/30/2025[facility] [place] of Occupational Health - Occupational Stress QuestionnaireAnswerDate RecordedDo you feel stress - tense, restless, nervous, or anxious, or unable to sleep at night because yourmind is troubled all the time - these days?Only a dzjtki3912/29/2024Exercise Vital SignAnswerDate Recorded On average, how many [...] the highest degree you have received?High school upnakiks43/29/2023 Estimated Date of BwbfehqbAbvozqyvDxj58/03/2026ased on last menstrual period of 02/21/2025Sex and Gender InformationValueDate RecordedSex Assigned at BirthNot on fileLegal AqaFherlm74/15/2023 7:18 PM EDTGender IdentityNot on file Sexual OrientationNot on 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 Not on fileNot on fileNot on filedocumented as of this encounter Plan of Treatment DateTypeDepartmentCare Team (Latest Contact Info)Bzqrhjpzucl73/04/2025 9:00 AM ESTRoutine [facility] [place] [facility] [address] [place] [address] Nathan Pop DO [address] [place] [place] [address] documented as of this encounter Visit Diagnoses Not on filedocumented in this encounter Care Teams Team MemberRelationshipSpecialtyStart DateEnd Date Eliceo Beltran DO [address] [address] PCP - GeneralFamily Medicine02/14/24 Eliceo Beltran DO [address] [place] [address] PCP - Medical [place] [employer]07/27/2412documented as of this encounter
--- OUTSIDE RECORDS SUMMARY | 2025-10-21 10:07 | XMS_ITS | Encounter Summary ---
Author Organization [facility] Address [address] [place] [address] Care Team Providers Care Retail District Manager Name Role Phone NirajlEiceo kauffman Primary Care Provider [phone] CharlottecarolEliceo Bryant DAY Unavailable [phone] Encounter Details DateTypeDepartmentCare Team (Latest Contact Info)Rvntdfqugtv04/21/2025External Result Encounter [facility] External Department Unsolicited Nathan Pop DO [address] [place] [address] Social History Tobacco UseTypesPacks/DayYears UsedDateSmoking Tobacco: NeverSmokeless Tobacco: NeverAlcohol UseStandard Drinks/WeekCommentsNever0 (1 standard drink = 0.6 oz pure alcohol)caffeine: 1-2 cups per day, coffee and dkaT2024 Health Literacy AnswerDate RecordedHow often do you [...] week12/29/2024How often do you attend mormon or sabianist services?Patient rubevumr73/03/2025Do you belong to any clubs or organizations such as mormon groups, unions, [employer] or athletic leodan ups, or school groups?No12/29/2024How often do you attend meetings of the clubs or organizations you belong to?Patient ibxvelfh45/03/2025re you , , , , never , [...] hard at all12/29/2024PHQ-2AnswerDate RecordedPatient Health Questionnaire-2 Score0 07/30/2025[facility] [place] of Occupational Health - Occupational Stress QuestionnaireAnswerDate RecordedDo you feel stress - tense, restless, nervous, or anxious, or unable to sleep at night because yourmind is troubled all the time - these days?Only a zskezw4512/29/2024Exercise Vital SignAnswerDate Recorded On average, how many [...] the highest degree you have received?High school aumxgkhq47/29/2023 Estimated Date of SkkexqdnChxhjjidWzg58/03/2026ased on last menstrual period of 02/21/2025Sex and Gender InformationValueDate RecordedSex Assigned at BirthNot on fileLegal UrfUtzmmh27/15/2023 7:18 PM EDTGender IdentityNot on file Sexual OrientationNot on 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 Not on fileNot on fileNot on filedocumented as of this encounter Plan of Treatment DateTypeDepartmentCare Team (Latest Contact Info)Hsdfomzyuph43/04/2025 9:00 AM ESTRoutine [facility] [place] [facility] [address] [place] [address] Nathan Pop DO [address] [place] [address] documented as of this encounter Procedures Procedure NamePriorityDate/TimeAssociated DiagnosisCommentsCULTURE, URINE, RYDIUYHFBQD36/21/2025 1:30 PM EST documented in this encounter Results * Urine culture (10/16/2025 1:30 PM EST)ComponentValueRef RangeTest Method Analysis TimePerformed AtPathologist SignatureJACKSON [facility] NOTE?20,000 colonies/ml mixed ?bacterial skin contaminants ?2 Days 10/18/2025 10:10 AM [facility] CtrSpecimen (Source)Anatomical Location / LateralityCollection Method / VolumeCollection TimeReceived Time Clean-Voided Midstream (Clean Void Midstream)10/16/2025 1:30 PM EST10/16/2025 4:19 PM EST Narrative [facility] - 10/18/2025 10:10 AM EST Diagnosis: HIGH BLOOD PRESSURE Comment: Authorizing ProviderResult TypeResult StatusCorey Kiesha DOLAB MICROBIOLOGY - GENERAL ORDERABLESFinal ResultPerforming OrganizationAddressCity/State/ZIP Code Phone Number [facility] [address] [place] [address], [facility] [address] [facility] [place] [address] documented in this encounter Visit Diagnoses Not on filedocumented in this encounter Care Teams Team MemberRelationshipSpecialtyStart DateEnd Date Eliceo Beltran DO [address] [place] [address] PCP - GeneralFamily Medicine02/14/24 Eliceo Beltran DO [address] [place] [address] PCP - Medical [place] [employer]07/27/2412documented as of this encounter
--- OUTSIDE RECORDS SUMMARY | 2025-10-21 10:07 | XMS_ITS | Encounter Summary ---
Author Organization [facility] Address [address] [place] [address] Care Team Providers Care Wood Chopper Name Role Phone RubyEliceo Bryant DAY Primary Care Provider [phone] Ruby Eliceo Hurtado DO Unavailable [phone] Encounter Details DateTypeDepartmentCare Team (Latest Contact Info)Fhrzqrtkmjq97/18/2025Travel Social History Tobacco UseTypesPacks/DayYears UsedDateSmoking Tobacco: NeverSmokeless Tobacco: NeverAlcohol UseStandard Drinks/WeekCommentsNever0 (1 standard drink = 0.6 oz pure alcohol)caffeine: 1-2 cups per day, coffee and jkhF5075 Health Literacy AnswerDate RecordedHow often do you [...] relatives?Once a week12/29/2024How often do you attend roman catholic or confucianist services?Patient jqaduqfx2025Do you belong to any clubs or organizations such as roman catholic groups, unions, fraternal or athletic leodan ups, or school groups?No12/29/2024How often do you attend meetings of the clubs or organizations you belong to?Patient upojwkjc31/03/2025re you , , , , never , [...] all12/29/2024PHQ-2AnswerDate RecordedPatient Health Questionnaire-2 Score0 07/30/2025[facility] [place] of Occupational Health - Occupational Stress QuestionnaireAnswerDate RecordedDo you feel stress - tense, restless, nervous, or anxious, or unable to sleep at night because yourmind is troubled all the time - these days?Only a inlwwd1712/29/2024Exercise Vital SignAnswerDate Recorded On average, how many [...] steady place to sleep or slept in [facility] (including now)?No09/19/2023Housing Stability Vital SignAnswerDate RecordedIn [...] the highest degree you have received?High school suekznpm75/29/2023 Estimated Date of CjzkhkkgHqedyyebQrs44/03/2026ased on last menstrual period of 02/21/2025Sex and Gender InformationValueDate RecordedSex Assigned at BirthNot on fileLegal UslNvzztu89/15/2023 7:18 PM EDTGender IdentityNot on file Sexual OrientationNot on 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 Not on fileNot on fileNot on filedocumented as of this encounter Plan of Treatment DateTypeDepartmentCare Team (Latest Contact Info)Uuqufctchci73/04/2025 9:00 AM ESTRoutine [facility] [place] [facility] [address] [place] [address] Nathan Pop, DO [address] [place] [address] [place] [address] documented as of this encounter Visit Diagnoses Not on filedocumented in this encounter Care Teams Team MemberRelationshipSpecialtyStart DateEnd Date Eliceo Beltran DO [address] [place] [address] PCP - GeneralFamily Medicine02/14/24 Eliceo Beltran DO [address] [place] [address] PCP - Medical [place] [employer]07/27/2412documented as of this encounter
--- OUTSIDE RECORDS SUMMARY | 2025-10-21 10:07 | XMS_ITS | Encounter Summary ---
Author Organization [facility] tem Address [id number] [address] [place] [address] Care Team Providers Care Branch Employment Coordinator Name Role Phone Cruz Rodríguez MD Primary Care Provider [phone] Encounter Details DateTypeDepartmentCare Team (Latest Contact Info)Fptzxvrcuus31/25/2025Telephone Maternal- Medicine at [facility] [address] [facility] [place] [address] Cha Harris, DIALLO Social History Tobacco UseTypesPacks/DayYears [...] or more drinks on one occasion?Never5ChildcareAnswer Date RqfaazpwVgyzpxcegLveuxvr53/13/2019EmploymentAnswerDate RecordedEmployment Apjqude0405/08/2019Hunger ScreeningAnswerDate RecordedWithin the past 12 months we worried whether our food would run out before we got money to buy more.Never True09/10/2025Within the past 12 months the food we bought just didn't last and we didn't have money to get more.Never True09/10/2025Purpose - LifeAnswerDate RecordedPurpose and direction in kftvUohqrry54/11/2021Estimated Date of EkehuafcUdiycqfjMug24/03/2026Based on last menstrual period of 02/21/2025 (Exact Date)Sex and Gender InformationValueDate RecordedSex Assigned at BirthNot on fileLegal FdhLddeks12/07/2019 2:55 PM ESTGender IdentityNot on fileSexual OrientationNot on filedocumented as of this encounter Miscellaneous Notes * Telephone Encounter - Cha Harris RN - 10/20/2025 2:50 PM EST Called pt to discuss her insulin change and received voicemail. Left her a message that Kayleigh Rizzo reviewed her blood sugars and would like her to increase her lantus in the evening to 25 units. Asked her to please call back to verify that she got this new change for this week. documented in this encounter Plan of Treatment DateTypeDepartmentCare Team (Latest Contact Info)Yyeiudqldmi22/03/2025 11:00 AM ESTAppointment Maternal Medicine [place] [address] [place] [address] 11/03/2025 2:30 PM ESTOffice Visit Maternal- Medicine at [facility] [address] [place] [address] Kayleigh Rizzo PA-C [address] [address] documented as of this encounter Visit Diagnoses Diagnosis Insulin controlled gestational diabetes mellitus (GDM) in second trimester documented in this encounter Care Teams Team MemberRelationshipSpecialtyStart DateEnd Date Cruz Rodríguez MD [address] [place] [address] PCP - GeneralFamily Medicine12/02/18documented as of this encounter
--- OUTSIDE RECORDS SUMMARY | 2025-10-21 10:07 | XMS_ITS | Encounter Summary ---
Author Organization [facility] tem Address [id number] [address] [place] [address] Care Team Providers Care Hoop Driving Machine Operator Helper Name Role Phone Cruz Rodríguez MD Primary Care Provider [phone] Encounter Details DateTypeDepartmentCare Team (Latest Contact Info)Hxtshioaoty57/25/2025Orders Only Maternal- Medicine at [facility] [address] [place] [phone] Kayleigh Rizzo, PAAlbinC [address] [address] Essential hypertension affecting in third trimester Social [...] or more drinks on one occasion?Never5ChildcareAnswer Date LrgeuffgCabfsnmgoSqwwpos19/13/2019EmploymentAnswerDate RecordedEmployment Nandgas1705/08/2019Hunger ScreeningAnswerDate RecordedWithin the past 12 months we worried whether our food would run out before we got money to buy more.Never True09/10/2025Within the past 12 months the food we bought just didn't last and we didn't have money to get more.Never True09/10/2025Purpose - LifeAnswerDate RecordedPurpose and direction in pffbBjukosy51/11/2021Estimated Date of OjwwoaolCfsunbjlOsx21/03/2026Based on last menstrual period of 02/21/2025 (Exact Date)Sex and Gender InformationValueDate RecordedSex Assigned at BirthNot on fileLegal BkfZpzayk31/07/2019 2:55 PM ESTGender IdentityNot on fileSexual OrientationNot on filedocumented as of this encounter Plan of Treatment DateTypeDepartmentCare Team (Latest Contact Info)Fhmnuhbrirn22/03/2025 11:00 AM ESTAppointment Maternal Medicine [address] [place] [address] 11/03/2025 2:30 PM ESTOffice Visit Maternal- Medicine at [facility] [address] [place] [address] Kayleigh Rizzo, PAAlbinC [address] [address] documented as of this encounter Visit Diagnoses Diagnosis Essential hypertension affecting in third trimester documented in this encounter Care Teams Team MemberRelationshipSpecialtyStart DateEnd Date Cruz Rodríguez MD [address] [place] [address] PCP - GeneralFamily Medicine12/02/18documented as of this encounter
--- OUTSIDE RECORDS SUMMARY | 2025-10-21 10:07 | XMS_ITS | Encounter Summary ---
Author Organization [facility] tem Address [id number] [address] [place] [address] Care Team Providers Care Census Taker Name Role Phone Cruz Rodríguez MD Primary Care Provider [phone] Reason for Referral * Diagnostic Imaging (Routine) [...] with or without consult Nathan Pop DO [address] [place] [address] [place] [address] Phone: tel: fax: Maternal- Medicine at [facility] [address] [place] [address] Phone: tel: fax: Referral IDStatusReasonStart DateExpiration DateVisits RequestedVisits [id number] Encounter Details DateTypeDepartmentCare Team (Latest Contact Info)Wdjwxerwyge60/13/2025Orders Only Maternal Medicine [place] [address] [place] [id number] Danae Ramirez RN Insulin controlled gestational diabetes [...] or more drinks on one occasion?Never5ChildcareAnswer Date UjkvcvkoKbhjhtvmnQqzrxbv25/13/2019EmploymentAnswerDate RecordedEmployment Ilfwfkj9105/08/2019Hunger ScreeningAnswerDate RecordedWithin the past 12 months we worried whether our food would run out before we got money to buy more.Never True09/10/2025Within the past 12 months the food we bought just didn't last and we didn't have money to get more.Never True09/10/2025Purpose - LifeAnswerDate RecordedPurpose and direction in rccgOxcluhm67/11/2021Estimated Date of SgffxziuVokzpuxvQei23/03/2026Based on last menstrual period of 02/21/2025 (Exact Date)Sex and Gender InformationValueDate RecordedSex Assigned at BirthNot on fileLegal QhfNfaxjn64/07/2019 2:55 PM ESTGender IdentityNot on fileSexual OrientationNot on filedocumented as of this encounter Plan of Treatment DateTypeDepartmentCare Team (Latest Contact Info)Oqapokahdsc52/03/2025 11:00 AM ESTAppointment Maternal Medicine [place] [address] [place] [address] 11/03/2025 2:30 PM ESTOffice Visit Maternal- Medicine at [facility] [address] [place] [phone] Kayleigh Rizzo PA-C [address] [address] NameTypePriorityAssociated DiagnosesOrder ScheduleUS MFM with or without [...] Cruz Rodríguez MD [address] [place] [address] PCP - GeneralFamily Medicine12/02/18documented as of this encounter
--- OUTSIDE RECORDS SUMMARY | 2025-10-21 10:07 | XMS_ITS | Encounter Summary ---
Author Organization [facility] Address [address] [place] [address] Care Team Providers Care Service Specialist Name Role Phone NirajEliceo kauffman Primary Care Provider [phone] CharlottecarolEliceo Bryant DAY Unavailable [phone] Encounter Details DateTypeDepartmentCare Team (Latest Contact Info)Pihmirncgic31/16/2025Clinisync Result Encounter [facility] External Department Unsolicited Jony Pop DO [address] [place] [address] Social History Tobacco UseTypesPacks/DayYears UsedDateSmoking Tobacco: NeverSmokeless Tobacco: NeverAlcohol UseStandard Drinks/WeekCommentsNever0 (1 standard drink = 0.6 oz pure alcohol)caffeine: 1-2 cups per day, coffee and vahW0419 Health Literacy AnswerDate RecordedHow often do you [...] relatives?Once a week12/29/2024How often do you attend evangelical or yazidism services?Patient vzvclois29/03/2025Do you belong to any clubs or organizations such as evangelical groups, unions, [employer] or athletic leodan ups, or school groups?No12/29/2024How [...] RecordedPatient Health Questionnaire-2 Score0 07/30/2025[facility] [place] [facility] Occupational Health - Occupational Stress QuestionnaireAnswerDate RecordedDo you feel stress - tense, restless, nervous, or anxious, or unable to sleep at night because yourmind is troubled all the time - these days?Only a alcmnx6012/29/2024Exercise Vital SignAnswerDate Recorded On average, how many [...] steady place to sleep or slept in [facility] (including now)?No09/19/2023Housing Stability Vital SignAnswerDate RecordedIn [...] the highest degree you have received?High school rtxhuytx75/29/2023 Estimated Date of NhjghxhwEkexedflEso83/03/2026ased on last menstrual period of 02/21/2025Sex and Gender InformationValueDate RecordedSex Assigned at BirthNot on fileLegal ZmqLfmjnx64/15/2023 7:18 PM EDTGender IdentityNot on file Sexual OrientationNot on 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 Not on fileNot on fileNot on filedocumented as of this encounter Plan of Treatment DateTypeDepartmentCare Team (Latest Contact Info)Unjmsklwban22/04/2025 9:00 AM ESTRoutine [facility] [place] [facility] [address] [place] [address] Jony Pop, DO [address] [place], [facility]11 documented as of this encounter Procedures Procedure NamePriorityDate/TimeAssociated DiagnosisCommentsUS OB BPP W NON-LOMWBM2310/11/2025 1:46 PM EST documented in this encounter Results * US OB BPP W NON-STRESS (10/11/2025 1:46 PM EST)Anatomical Region LateralityModalityOtherSpecimen (Source)Anatomical Location / Laterality Collection Method / VolumeCollection TimeReceived Time10/11/2025 1:46 PM EST Narrative 10/11/2025 1:48 PM EST [facility] ?[address] ? [place] [address] ? Ultrasound Report ? Signed ? Patient: DRISS GAMA ?MR#: [id number] ?? : 1995 ?Acct:[id number] ?? Age/Sex: 30 / F ?ADM Date: 10/10/25 ?? Loc: [facility]O ? Attending Dr: Jony Pop D.O. ? Ordering Physician: Jony Pop D.O. ?? Date of Service: 10/10/25 ?? Procedure(s): US OB BPP w non-stress ?? Accession Number(s): [id number] ? cc: Jony Pop D.O.; Yomaira BELTRAN ? [facility] ? [address] ? [place] [address] ? Patient Name: ?? DRISS Daniel GAMA ? MRN: [id number] ? date: 1995 ?Sex: F ?? Assigned Patient Location: [facility]BC ?? Current Patient Location: [facility]O ?? Accession/Order Number: [id number] ?? Exam Date: 10/10/2025 ??10:49 ?Report Date: [...] Dictation Location: RADIO-PC-20 ? Electronically authenticated by: [id number] ??Y ?? Date: 10/11/2025 ??13:46 ? Dictated By: ?Jp Morillo D.O. ? Signed By: ?10/11/25 1348 ? DD/ 1346 ? TD/TT: ? Machinist Linotype: Procedure Note Radiology, Radiologist, - 10/11/2025 [place] [address] Ultrasound Report Signed Patient: DRISS GAMA MMR#: [id number] : 1995Acct:[id number] Age/Sex: 30 / FADM Date: 10/10/25 Loc: [facility] Attending Dr: Jony Pop D.O. Ordering Physician: Jony Pop D.O. Date of Service: 10/10/25 Procedure(s): US OB BPP w non-stress Accession Number(s): [id number] cc: Jony Pop D.O.; Yomaira BELTRAN The [place] [id number] Patient Name: DRISS GAMA MRN: [id number] date: 1995 Sex: F Assigned Patient Location: [facility] Current Patient Location: [facility] Accession/Order Number: [id number] Exam Date: 10/10/2025 10:49 Report Date: 10/11/2025 [...] Morillo M.D. 10/11/2025 1:46 PM Dictation Location: [facility] Electronically authenticated by: [id number] Y Date: 3:46 Dictated By: Jp Morillo D.O. Signed By:10/11/25 1348 DD/ 1346 TD/TT: Machinist Linotype: Authorizing ProviderResult TypeResult StatusCorey Kiesha DOCLINISYNC IMAGINGFinal Result documented in this encounter Visit Diagnoses Not on filedocumented in this encounter Care Teams Team MemberRelationshipSpecialtyStart DateEnd Date Eliceo Beltran DO [address] [place] [address] PCP - GeneralFamily Medicine02/14/24 Eliceo Beltran DO [address] [place] [address] PCP - Medical [place] [employer]07/27/2412documented as of this encounter
--- OUTSIDE RECORDS SUMMARY | 2025-10-21 10:07 | XMS_ITS | Encounter Summary ---
Author Organization [facility] Address [address] [place] [address] Care Team Providers Care Litigation Support Analyst Name Role Phone Eliceo Beltran Primary Care Provider [phone] CharlottegeovaniEliceo kauffman Unavailable [phone] Encounter Details DateTypeDepartmentCare Team (Latest Contact Info)Fsguuokjgxc71/22/2025Clinisync Result Encounter [facility] External Department Unsolicited Steph Keane, DEVYN [address] [facility] [place] [address] Social History Tobacco UseTypesPacks/DayYears UsedDateSmoking Tobacco: NeverSmokeless Tobacco: NeverAlcohol UseStandard Drinks/WeekCommentsNever0 (1 standard drink = 0.6 oz pure alcohol)caffeine: 1-2 cups per day, coffee and yivD3432 Health Literacy AnswerDate RecordedHow often do you [...] week12/29/2024How often do you attend mosque or yazdanism services?Patient grtpcuol36/03/2025Do you belong to any clubs or organizations such as mosque groups, unions, [employer] or athletic leodan ups, or school groups?No12/29/2024How often do you attend meetings of the clubs or organizations you belong to?Patient iosddatc45/03/2025re you , , , , never , [...] Questionnaire-2 Score0 07/30/2025[facility] [place] of Occupational Health - Occupational Stress QuestionnaireAnswerDate RecordedDo you feel stress - tense, restless, nervous, or anxious, or unable to sleep at night because yourmind is troubled all the time - these days?Only a fljbfp7212/29/2024Exercise Vital SignAnswerDate Recorded On average, how many [...] in a [place] [facility] [place] (including now)?No12/29/2024 EducationAnswerDate RecordedWhat is the highest level of school you have completed or the highest degree you have received?High school nhuhbhba40/29/2023 Estimated Date of RcqlbavgNjcczzcwGzd56/03/2026ased on last menstrual period of 02/21/2025Sex and Gender InformationValueDate RecordedSex Assigned at BirthNot on fileLegal XoeTzvoqq66/15/2023 7:18 PM EDTGender IdentityNot on file Sexual OrientationNot on 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 Not on fileNot on fileNot on filedocumented as of this encounter Plan of Treatment DateTypeDepartmentCare Team (Latest Contact Info)Xweguztlcbh36/04/2025 9:00 AM ESTRoutine [facility] [place] [facility] [address] [phone] Nathan Pop, DO [address] [facility] [place] [address] documented as of this encounter Procedures Procedure NamePriorityDate/TimeAssociated DiagnosisCommentsUS OB BPP W NON-VZCLPA5310/17/2025 9:22 AM EST documented in this encounter Results * US OB BPP W NON-STRESS (10/17/2025 9:22 AM EST)Anatomical Region LateralityModalityOtherSpecimen (Source)Anatomical Location / Laterality Collection Method / VolumeCollection TimeReceived Time10/17/2025 9:22 AM EST Narrative 10/17/2025 9:25 AM EST [facility] ?[address] ? [place] [address] ? Ultrasound Report ? Signed ? Patient: DRISS GAMA ?MR#: [id number] ?? : 1995 ?Acct:[id number] ?? Age/Sex: 30 / F ?ADM Date: 10/17/25 ?? Loc: US ? Attending Dr: Steph Keane ? Ordering Physician: Steph Keane ?? Date of Service: 10/17/25 ?? Procedure(s): US OB BPP w non-stress ?? Accession Number(s): [id number] ? cc: Steph Keane; Yomaira BELTRAN ? [facility] ? [address] ? [place] [address] ? Patient Name: ?? DRISS Daniel GAMA ? MRN: [id number] ? date: 1995 ?Sex: F ?? Assigned Patient Location: [facility]BC ?? Current Patient Location: ? Accession/Order Number: [id number] ?? Exam Date: 10/17/2025 ??08:11 ?Report Date: 10/17/2025 ??09:22 ? At the request of: ?? STEPH ??LAKHWINDER ? Procedure: ??US OB BPP w non-stress ? Biophysical profile. ? Reason for exam: Gestational diabetes ? COMPARISON: 10/10/2025 ? TECHNIQUE: Transabdominal imaging of the gravid uterus was obtained. ? FINDINGS: The fruit cutter reports a BPP of 8 out of 8. ??LEONEL is normal at 13.2 ?? cm. ?? heart rate 144 bpm. ??Nuchal cord is present. ? US/US OB BPP w non-stress ?? IMPRESSION: BPP 8 out of 8. ?? Nuchal cord is present. ??This was reported to the nurse by the ultrasound ?? technologist. ? Impression dictated by: Junito Mcgrath Jr., DRika ??10/17/2025 9:22 AM ? Dictation Location: RADIO-PC-18 ? Electronically authenticated by: [id number] ??Y ?? Date: 10/17/2025 ??09:22 ? Dictated By: ?Junito Mcgrath M.D. ? Signed By: ?10/17/25924 ? DD/ 1 ? TD/TT: ? Student Union Consultant: Procedure Note Radiology, Radiologist, - 10/17/2025 [place] [address] Ultrasound Report Signed Patient: DRISS GAMA MMR#: [id number] : 1995Acct:[id number] Age/Sex: 30 / FADM Date: 10/17/25 Loc: US Attending Dr: Steph Keane Ordering Physician: Steph Keane Date of Service: 10/17/25 Procedure(s): US OB BPP w non-stress Accession Number(s): [id number] cc: Steph Keane; Yomaira BELTRAN [address] [address] Patient Name: DRISS GAMA MRN: [id number] date: 1995 Sex: F Assigned Patient Location: [facility] Current Patient Location: Accession/Order Number: [id number] Exam Date: 10/17/2025 08:11 Report Date: 10/17/2025 09:22 At the request of: STEPH KEANE Procedure: US OB BPP w non-stress Biophysical profile. Reason for exam: Gestational diabetes COMPARISON: 10/10/2025 TECHNIQUE: Transabdominal imaging of the gravid uterus was obtained. FINDINGS: The fruit cutter reports a BPP of 8 out of 8. LEONEL is normal at13.2 cm. heart rate 144 bpm. Nuchal cord is present. US/US OB BPP w non-stress IMPRESSION: BPP 8 out of 8. Nuchal cord is present. This was reported to the nurse by the medical technologist blood bank. Impression dictated by: Junito Mcgrath Jr., D.O. 10/17/2025 9:22 AM Dictation Location: [facility] Electronically authenticated by: [id number] Y Date: 9:22 Dictated By: Junito Mcgrath M.D. Signed By:10/17/25924 DD/ 1 TD/TT: Student Union Consultant: Authorizing ProviderResult TypeResult StatusKrbayhealth emergency center, smyrnaa Lakhwinder NPCLINISYNC IMAGING Final Result documented in this encounter Visit Diagnoses Not on filedocumented in this encounter Care Teams Team MemberRelationshipSpecialtyStart DateEnd Date Eliceo Beltran DO [address] [place] [address] PCP - GeneralFami Medicine02/14/24 Eliceo Beltran DO [address] [place] [address] PCP - Medical [place] [employer]07/27/2412documented as of this encounter
--- OUTSIDE RECORDS SUMMARY | 2025-10-21 10:07 | XMS_ITS | Clinical Summary ---
Author Organization [employer] tem Address [id number] [address] [place] [address] Care Team Providers Care Head Stock Transfer Clerk Name Role Phone Cruz Rodríguez MD Primary Care Provider [phone] Allergies No known active allergies Medications MedicationSigDispense [...] and give 5 units every morning and 25 units subQ at bedtime. 15 mL 5Active insulin glargine-yfgn 100 unit/mL (3 mL) insulin pen Indications:Essential hypertension affecting in third trimesterPrime with 2 units and give 5 units every morning and 20 units subQ at bedtime. 15 mL 5111/28/2024Discontinued insulin glargine-yfgn 100 unit/mL (3 mL) insulin pen Indications:Essential hypertension affecting in third trimesterPrime with 2 units and give 5 units every morning and 23 units subQ at bedtime. 15 mL 5112/20/2024Discontinued Active Problems ProblemNoted DateDiagnosed DateEssential hypertension affecting in third rmnfaynye46/10/2025Insulin controlled gestational diabetes mellitus (GDM) in third cqiiwgxed79/26/2025Estimated Date of DeliveryCommentsYes 11/28/2025ased on last menstrual period of 02/21/2025 (Exact Date) Encounters DateTypeDepartmentCare LzcoNyhhtfeofnv95/25/2025Telephone Maternal- Medicine at [facility] [address] [place] [address] Cha Harris RN 10/20/2025Orders Only Maternal- Medicine at [facility] [address] [place] [address] Kayleigh Rizzo PA-C Essential hypertension affecting in third /14/2025Orders Only Maternal- Medicine at [facility] [address] [place] [address] Zora Samuels RN Essential hypertension affecting in third trimester (Primary Dx); Insulin controlled gestational diabetes mellitus (GDM) in third trimester 10/08/2025Orders Only Maternal Medicine [place] [address] [facility] [address] [place] [address] Danae Ramirez, DIALLO Insulin controlled gestational diabetes mellitus (GDM) in third trimester (Primary Dx); Essential hypertension affecting in third trimester; Encounter for follow-up ultrasound of anatomy; History of pre-eclampsia in prior , currently ; Hx of delivery, currently , second fcfudfujb60/11/2025 2:30 PM ESTTelemedicine Maternal- Medicine at [facility] [address] [place] [address] Kayleigh Rizzo PA-C Insulin controlled gestational diabetes mellitus (GDM) in third trimester (Primary Dx); Essential hypertension affecting in third tcclegufz57/11/2025Travel 10/05/2025Telephone Maternal- Medicine at [facility] [address] [place] [address] Anjana Davalos, DIALLO 10/04/20257288Ilbrmw11/03/2025Telephone Maternal- Medicine at [facility] [address] [place] [place] [address] Cha Harris, DIALLO 09/28/2025Orders Only Maternal- Medicine at [facility] [address] [place] [place] [address] Kayleigh Rizzo, PA-C Essential hypertension affecting in third vqsesqnwx62/27/2025Telephone Maternal- Medicine at [facility] [address] [place] [place] [address] Verito Gudino LD 09/21/2025Remote Patient Monitoring Maternal- Medicine at [facility] [address] [place] [place] [address] Kayleigh Rizzo, PA-C Insulin controlled gestational diabetes mellitus (GDM) in third trimester (Primary Dx); Essential hypertension affecting in third fhrapfvup77/23/2025Orders Only Maternal- Medicine at [facility] [address] [place] [place] [address] Camila Arciniega, YOUTH TEACHER-CNM Essential hypertension affecting in third hgspkkebc52/22/2025Telephone Maternal- Medicine at [facility] [address] [facility] [place] [address] Cha Harris, RN 09/15/2025Orders Only Maternal- Medicine at [facility] [address] [facility] [place] [address] Kayleigh Rizzo, PA-C Essential hypertension affecting in third jdscksfqy77/16/2025 11:00 AM EDTTelemedicine Maternal Medicine [place] [address] [address] Madhuri Monroy MD 28 weeks gestation of (Primary Dx); Insulin controlled gestational diabetes mellitus (GDM) in second trimester; Essential hypertension affecting in third wesuwqyaf90/16/2025Orders Only Maternal- Medicine at [facility] [address] [place] [address] Zora Samuels RN Essential hypertension affecting in third trimester (Primary Dx); Insulin controlled gestational diabetes mellitus (GDM) in second trimester; Encounter for follow-up ultrasound of vyuoyhd2609/10/20250258Urtfom72/10/2025 3:00 PM EDTOffice Visit Maternal- Medicine at [facility] [address] [place] [address] Jean Carlos Pina MD Diet controlled gestational diabetes mellitus (GDM) in second trimester (Primary Dx); Essential hypertension affecting in third etuyzyeui44/08/2025Travel 09/01/2025Telephone Maternal- Medicine at [facility] [address] [place] [address] Cha Harris RN 08/24/2025 1:30 PM EDTSupport Visit Maternal- Medicine at [facility] [address] [place] [address] Teena Sarmiento RN Kerline Steiner RD Gestational diabetes mellitus (GDM) in second trimester, gestational diabetes method of control fffaynruhxp16/28/0022Fstixf26/27/8014Kbzcmo80/26/2025bstract Maternal- Medicine at [facility] [address] [place] [address] External, Scanning Provider 08/19/2025Orders Only Maternal- Medicine at [facility] [address] [place] [address] Ref Prov, Not In System 08/18/2025bstract Maternal- Medicine at [facility] [address] [place] [address] Madhuri Monroy MD 08/18/2025Orders Only Maternal- Medicine at [facility] [address] [place] [address] Khalida Garrett RN History of pre-eclampsia in [...] or more drinks on one occasion?Never5ChildcareAnswer Date SzmbjvdaBmtgkjgqrRyhexpt18/13/2019EmploymentAnswerDate RecordedEmployment Ugzbxpz1605/08/2019Hunger ScreeningAnswerDate RecordedWithin the past 12 months we worried whether our food would run out before we got money to buy more.Never True09/10/2025Within the past 12 months the food we bought just didn't last and we didn't have money to get more.Never True09/10/2025Purpose - LifeAnswerDate RecordedPurpose and direction in juivWayglen10/11/2021Estimated Date of XiodzhpcDhsmzorrBnh36/03/2026Based on last menstrual period of 02/21/2025 (Exact Date)Sex and Gender InformationValueDate RecordedSex Assigned at BirthNot on fileLegal ScqHenxde43/07/2019 2:55 PM ESTGender IdentityNot on fileSexual OrientationNot on file Last Filed Vital Signs Vital SignReadingTime TakenCommentsBlood Ilcdkchn759/801 10:34 AM EDT Lohnn96074/10/2025 2:48 PM EDTTemperature--Respiratory Sxdm852012/10/2018 11:10 AM ESTOxygen Ulzkyoflbl07%12/10/2018 11:10 AM ESTInhaled Oxygen Concentration-- Itrtvr36.6 kg (160 lb)09/10/2025 10:34 AM TYLPacnoj028.5 cm (5' 2.01 )09/04/2025 2:48 PM EDTBody Mass Index29.261 2:48 PM EDT Plan of Treatment DateTypeDepartmentCare Team (Latest Contact Info)Eumgwqorwfa98/03/2025 11:00 AM ESTAppointment Maternal Medicine [address] GA[place] [address] [place] [phone] 11/03/2025 2:30 PM ESTOffice Visit Maternal- Medicine at [facility] [address] [place] [address] Kayleigh Rizzo, FORREST [address] [address] Health MaintenanceDue DateLast DoneCommentsDepression Srkohaoep08/08/2007dult BMI Follow Up Plan2013DTaP,Tdap and Td Vaccines (7 - Td or Tdap)2024 2014, 05/03/2000, 12/29/1997, Additional history existsInfluenza Vaccine RSV ( or age 60+ yrs) (1 - Risk 1-dose series)10/03/2025dult BMI Zldargnqc54Tobacco Screening Pap Smear Medical Devices Not on file Procedures Procedure NamePriorityDate/TimeAssociated DiagnosisCommentsUS MFM OB FOLLOW-UP, 1 VREMZSjsndon91/13/2025 8:55 AM EST Essential hypertension affecting in third trimester Insulin controlled gestational diabetes mellitus (GDM) in second trimester Encounter for follow-up ultrasound of anatomy US MFM COMPREHENSIVE ANATOMIC POSHYHOnfsvqj65/16/2025 10:56 AM EDT History of pre-eclampsia in prior , currently GLUCOSE TOLERANCE, 3 AEVEERnwmfet42/20/2025 GLUCOSE TOLERANCE, TJLPNJLXckxneb00/20/2025 GLUCOSE TOLERANCE, 1 DEXNZtrybtl86/20/2025 SECOND HOUR GLUCOSE TOLERANCE 100 GM KABGJufgprn37/20/2025 ULTRASOUND IPXNFKCfzrzuw72/17/2025 3:39 PM EDTGLU 1H POST 50G LOADRoutine [...] REYNAGA : 1995 SEX: F Accession Number: [id number] ORDERING PHYSICIAN: MADHURI MONROY REFERRING PHYSICIAN: JONY MEJÍA Coding Procedures ? 07718: Ultrasound, uterus, real time with image documentation, follow up,transabdominal ? approach per fetus Indication Screening for follow-up survey, Gestational diabetes, Chronic hypertension affecting , History of prior with pre-eclampsia , History of prior with delivery , Previous surgery to cervix -(D&C). History OB History ? 2. Para 1 ? [id number] Current Cell free DNA ?Low Risk analysis [...] (oz) ? 11 oz EFW by: ?Hadlock (ECJ-RL-XS-FL) Extended Tibia ??52.5 mm 31w 1d 20% Gerda Corrugator Machine Operator ? 2.7 mm Head / Face / Neck Cephalic index 0.82 ? 75% Nicolaides Nasal bone: ?documented previously Extremities / Bony Struc FL / BPD ? 0.66 FL / HC ?0.19 FL / AC ?0.20 Other Structures FHR ?141 bpm Anatomy The following structures appear normal: Head/Neck: Cranium. Lateral ventricles. Cavum septi pellucidi. Parenchyma. Heart/Thorax: 4-chamber view. 3-vessel view. 8-bzwbsi-sqyzsqh view. Bicaval view. Cardiac rhythm. ? Diaphragm. [...] MVP measures 5.1 cm. Recommendations Please see [facility] recommendations from prior clinical and/or ultrasound report documentation. The patient is scheduled in four to six week(s) to complete anatomic survey. Subsequent follow up or other follow up as clinically determined by primary OB provider unless otherwise specified by [facility]. Results forwarded to ordering provider so they can follow up with the patient as necessary. Procedure Note Jean Carlos Pina MD - 10/08/2025 NAME: JAYY REYNAGA : 1995 SEX: F Accession Number: [id number] ORDERING PHYSICIAN: MADHURI MONROY REFERRING PHYSICIAN: JONY MEJÍA Coding Procedures 59790: Ultrasound, uterus, real time with image documentation, follow up, transabdominal approach per fetus Indication Screening for follow-up survey, Gestational diabetes, Chronic hypertension affecting , History of prior with pre-eclampsia , History of prior with delivery ,Previous surgery to cervix -(D&C). History OB History 2. Para 1 [id number] Current Cell free DNA Low Risk analysis [...] Hadlock OFD 107.4 mm 35w 3d 95% Gerad HC 310.9 mm 34w 5d 68% Hadlock AC 298.6 mm 33w 6d 81% Hadlock Femur 58.6 mm 30w 4d 3% Hadlock Humerus 55.7 mm 32w 3d 50% Gerda HC / AC 1.04 EFW 2,138 g 55% Hadlock EFW (lb) 4 lb EFW (oz) 11 oz EFW by: Hadlock (ZLU-GF-AP-FL) Extended Tibia 52.5 mm 31w 1d 20% Gerda Corrugator Machine Operator 2.7 mm Head / Face / Neck Cephalic index 0.82 75% Nicolaides Nasal bone: documented previously Extremities / Bony Struc FL / BPD 0.66 FL / HC 0.19 FL / AC 0.20 Other Structures FHR 141 bpm Anatomy The following structures appear normal: Head/Neck: Cranium. Lateral ventricles. Cavum septi pellucidi.Parenchyma. Heart/Thorax: 4-chamber view. 3-vessel view. 4-zvgdth-ysijnyz view.Bicaval view. Cardiac rhythm. Diaphragm. Abdomen: Stomach. [...] MethodAnalysis TimePerformed AtPathologist SignatureGlucose Tolerance Test 2 Aseh133CVIYOMKO TRANSCRIBED RESULTSSpecimen (Source)Anatomical Location / LateralityCollection Method / VolumeCollection TimeReceived TimeBloodVenous blood / Unknown Narrative Authorizing ProviderResult TypeResult StatusNot In System Ref ProvLAB BLOOD ORDERABLESFinal ResultPerforming OrganizationAddressCity/State/ZIP CodePhone Number MANUALLY TRANSCRIBED RESULTS * Glucose tolerance, 1 hour (08/15/2025)ComponentValueRef RangeTest Method Analysis TimePerformed AtPathologist SignatureGlucose Tolerance Test 1 Nfsh876 MANUALLY TRANSCRIBED RESULTSSpecimen (Source)Anatomical Location / Laterality Collection Method / VolumeCollection TimeReceived TimeBloodVenous blood / Unknown Narrative Authorizing ProviderResult TypeResult StatusNot In System Ref CostumeWorksLAB BLOOD ORDERABLESFinal ResultPerforming OrganizationAddressCity/State/ZIP CodePhone Number MANUALLY TRANSCRIBED RESULTS * Glucose tolerance, 3 hours (08/15/2025)ComponentValueRef RangeTest Method Analysis TimePerformed AtPathologist SignatureGlucose Tolerance Test 3 Nptc489 MANUALLY TRANSCRIBED RESULTSSpecimen (Source)Anatomical Location / Laterality Collection Method / VolumeCollection TimeReceived TimeBloodVenous blood / Unknown Narrative Authorizing ProviderResult TypeResult StatusNot In System Ref ProvLAB BLOOD ORDERABLESFinal ResultPerforming OrganizationAddressCity/State/ZIP CodePhone Number MANUALLY TRANSCRIBED RESULTS * Glucose, tolerance fasting (08/15/2025)ComponentValueRef RangeTest Method Analysis TimePerformed AtPathologist SignatureGlucose Tolerance Test Xzvbphi18 MANUALLY TRANSCRIBED RESULTSSpecimen (Source)Anatomical Location / Laterality [...] TimePerformed AtPathologist SignatureGlucose, 1 hr PP 50GM vmli624 MANUALLY TRANSCRIBED RESULTSSpecimen (Source)Anatomical Location / Laterality Collection Method / VolumeCollection TimeReceived TimeBloodVenous blood / Unknown Narrative Authorizing ProviderResult TypeResult StatusNot In System Ref ProvLAB BLOOD ORDERABLESFinal ResultPerforming OrganizationAddressCity/State/ZIP CodePhone Number MANUALLY TRANSCRIBED RESULTS from Last 3 Months Insurance Care Teams Team MemberRelationshipSpecialtyStart DateEnd Date Cruz Rodríguez MD [address] [place] [address] PCP - GeneralFamily Medicine12/02/18
--- OUTSIDE RECORDS SUMMARY | 2025-10-21 10:07 | XMS_ITS | Encounter Summary ---
Author Organization [employer] [facility] tem Address [id number] [address] [place] [address] Care Team Providers Care Felt Pad Cutter Name Role Phone Cruz Rodríguez MD Primary Care Provider [phone] Reason for Referral * Diagnostic Imaging (Routine) - Pending ReviewSpecialtyDiagnoses / Procedures Referred By ContactReferred To ContactMaternal and Medicine Diagnoses Essential hypertension affecting in third trimester Insulin controlled gestational diabetes mellitus (GDM) in third trimester Procedures [facility] with or without consult Jean Carlos Pina MD [address] [facility], [address] [place] [address] Phone: tel: fax: Maternal- Medicine at [facility] [address] [place] [address] Phone: tel: fax: Referral IDStatusReasonStart DateExpiration DateVisits RequestedVisits [id number] [id number] Encounter Details DateTypeDepartmentCare Team (Latest Contact Info)Oxgycssgrcx71/14/2025Orders Only Maternal- Medicine at [facility] [address] [place] [address] Zora Samuels RN Essential hypertension affecting in [...] or more drinks on one occasion?Never5ChildcareAnswer Date UrezizquUuajgjtpbCggldkg11/13/2019EmploymentAnswerDate RecordedEmployment Vcceyge6005/08/2019Hunger ScreeningAnswerDate RecordedWithin the past 12 months we worried whether our food would run out before we got money to buy more.Never True09/10/2025Within the past 12 months the food we bought just didn't last and we didn't have money to get more.Never True09/10/2025Purpose - LifeAnswerDate RecordedPurpose and direction in nzxuKvxjznh56/11/2021Estimated Date of MvgexjdjBycjgpdwHxb70/03/2026Based on last menstrual period of 02/21/2025 (Exact Date)Sex and Gender InformationValueDate RecordedSex Assigned at BirthNot on fileLegal HfjRqkidt12/07/2019 2:55 PM ESTGender IdentityNot on fileSexual OrientationNot on filedocumented as of this encounter Plan of Treatment DateTypeDepartmentCare Team (Latest Contact Info)Gvbqdovefyz76/03/2025 11:00 AM ESTAppointment Maternal Medicine [place] [address] [place] [address] 11/03/2025 2:30 PM ESTOffice Visit Maternal- Medicine at [facility] [address] [facility] [place] [address] Kayleigh Rizzo PA-C [address] [facility] [address] [place] [address] NameTypePriorityAssociated DiagnosesOrder ScheduleUS MFM with or without [...] DateEnd Date Cruz Rodríguez MD [address] [place] [address] PCP - GeneralFamily Medicine12/02/18documented as of this encounter
--- OUTSIDE RECORDS SUMMARY | 2025-10-21 10:07 | XMS_ITS | Encounter Summary ---
Author Organization [facility] Address [address] [place] [address] Care Team Providers Care Shoe Cutter Name Role Phone NirajEliceo kauffman Primary Care Provider [phone] CharlottecarolEliceo Bryant DAY Unavailable [phone] Encounter Details DateTypeDepartmentCare Team (Latest Contact Info)Dlaozyxkztb70/21/2025Clinisync Result Encounter [facility] External Department Unsolicited Nathan Pop DO [address] [place] [address] Social History Tobacco UseTypesPacks/DayYears UsedDateSmoking Tobacco: NeverSmokeless Tobacco: NeverAlcohol UseStandard Drinks/WeekCommentsNever0 (1 standard drink = 0.6 oz pure alcohol)caffeine: 1-2 cups per day, coffee and bbjN9012 Health Literacy AnswerDate RecordedHow often do you [...] week12/29/2024How often do you attend mu-ism or scientologist services?Patient btxuujpm67/03/2025Do you belong to any clubs or organizations such as mu-ism groups, unions, Illumagear or athletic leodan ups, or school groups?No12/29/2024How often do you attend meetings of the clubs or organizations you belong to?Patient casoauic11/03/2025re you , , , , never , [...] Health Questionnaire-2 Score0 07/30/2025[facility] [place] [facility] Occup[facility] - Occupational Stress QuestionnaireAnswerDate RecordedDo you feel stress - tense, restless, nervous, or anxious, or unable to sleep at night because yourmind is troubled all the time - these days?Only a gacgcx6212/29/2024Exercise Vital SignAnswerDate Recorded On average, how many [...] the highest degree you have received?High school bgvcdmzu02/29/2023 Estimated Date of GoplprwqYbxnogqoQjr47/03/2026ased on last menstrual period of 02/21/2025Sex and Gender InformationValueDate RecordedSex Assigned at BirthNot on fileLegal NdlBbgtse96/15/2023 7:18 PM EDTGender IdentityNot on file Sexual OrientationNot on 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 Not on fileNot on fileNot on filedocumented as of this encounter Plan of Treatment DateTypeDepartmentCare Team (Latest Contact Info)Vgprjgzzsiy92/04/2025 9:00 AM ESTRoutine [facility] [address] [place] [address] Nathan Pop DO [address] [place] [address] documented as of this encounter Procedures Procedure NamePriorityDate/TimeAssociated DiagnosisCommentsURINE CULTURE - FR Cpsbisp5410/16/2025 1:30 PM EST [facility] UA (CLEAN/CATCH) QUILL CLEANER/MICRO IF IND.Yhatvsf9610/16/2025 1:30 PM EST documented in this encounter Results * URINE CULTURE - [facility] (10/16/2025 1:30 PM EST)ComponentValueRef RangeTest MethodAnalysis TimePerformed AtPathologist SignatureURINE CULTURE - [facility] ??Urine Culture - [facility] SEEFRMC [facility] RESULT^[facility] RESULT TBHURINE CULTURE - FRMCSEEN SEE SCANNED REPORT, NORMAL^SEE SCANNED REPORT, NORMALTBHSpecimen (Source)Anatomical Location / LateralityCollection Method / VolumeCollection TimeReceived Time10/16/2025 1:30 PM EST10/16/2025 1:44 PM EST Narrative [facility] - 10/18/2025 5:40 PM EST Authorizing ProviderResult TypeResult StatusCorey Kiesha DOLAB BLOOD ORDERABLES Final ResultPerforming OrganizationAddressCity/State/ZIP CodePhone Number [facility] * (ABNORMAL) [facility] UA (CLEAN/CATCH) QUILL CLEANER/MICRO IF IND. (10/16/2025 1:30 PM EST) ComponentValueRef [...] DOCLINISYNCFinal Result Performing OrganizationAddressCity/State/ZIP CodePhone Number [facility] documented in this encounter Visit Diagnoses Not on filedocumented in this encounter Care Teams Team MemberRelationshipSpecialtyStart DateEnd Date Eliceo Beltran DO [address] [place] [address] PCP - GeneralFami Medicine02/14/24 Eliceo Beltran DO [address] [place] [address] PCP - Medical [place] [employer]07/27/2412documented as of this encounter
--- OUTSIDE RECORDS SUMMARY | 2025-10-21 10:07 | XMS_ITS | Clinical Summary ---
Author Organization [facility] Address [address] [place] [address] Care Team Providers Care Data Integrity Consultant Name Role Phone Eliceo Beltran DO Primary Care Provider [phone] Eliceo Beltran DO Unavailable [phone] Allergies No known active allergies Medications MedicationSigDispense QuantityRefillsLast FilledStart DateEnd DateStatus metoprolol succinate XL (Toprol-XL) 25 MG 24 hr tablet Indications:Hypertension, unspecified typeTake 1 tablet by mouth daily 90 tablet 5Active Vit-Fe Fumarate-FA ( Vitamins) 28-0.8 MG tablet Indications:, unspecified gestational age ([facility]),Encounter for supervision of normal first in first trimester ([facility])Take 1 tablet by mouth Daily 30 tablet 110/6Active Alcohol Swabs (Alcohol Prep Pad) 70 % pads Indications:Gestational diabetes mellitus (GDM), antepartum, gestational diabetes method of control unspecified([facility]),Elevated glucose tolerance test Apply 1 Pad topically Daily Use four times daily to check FSBS. 150 each 5Active Blood Glucose Monitoring Suppl (D-Care Glucometer) w/Device kit Indications:Gestational diabetes mellitus (GDM), antepartum, gestational diabetes method of control unspecified([facility]),Elevated glucose tolerance test1 kit Daily Use four [...] Inject 13 Units under the skin at valelfo52/21/2025Active Active Problems ProblemNoted DateDiagnosed Date33 weeks gestation of ([facility]) 10/14/2025Third trimester ([facility])10/14/20251445Hmbhbuoa45/29/2025 Qrryrvxkwre95/26/2024Obesity (BMI 30-39.9)02/19/2024cquired equinus deformity of foot03/29/2023isplacement of cervical intervertebral disc without myelopathy 03/29/20234804Mdeitmjntoyx97/04/3228Ciyboezgsynzg23/04/5131Ubtjccreuzjxr90/04/2023 Izfnitzcxrlt08/04/2023 Assessment & Plan (07/30/2025 4:00 PM EDT): Record Blood Pressures 2-4 times weekly and record. Return with readings at next appointment. Call with readings if sees significant changes Intractable migraine without aura and with status pozxefyyiiw45/04/2023Migraines 03/29/2023hronic pelvic pain in sityqj4903/29/2023ain in female genitalia on fgvsgkudopu74/04/2023ain on qdovemexps12/04/2023anic mpgfkvte57/04/2023 Patellofemoral disorders, left knee03/29/2023atellofemoral disorders, right knee03/29/2023osterior calcaneal ksfxdjcze68/04/2023Scapular dyskinesis 03/29/20234958Ptxzmxubo68/04/2023Seasonal allergic rhinitis due to uzvigc6603/29/2023 Tachycardia, qagjjjlcab43/04/2023Tension qczfnani26/04/2023Vitamin B12 mminxopxhi20/04/2023Vitamin D stdpsxwocc27/04/2023hronic right shoulder pain 03/29/2023Estimated Date of DjtcjdjhUrevbvdnXhq99/03/2026ased on last menstrual period of 02/21/2025 Encounters DateTypeDepartmentCare NxxoOitgpucwcta99/22/2025linisync Result Encounter [facility] Department Unsolicited Steph Keane, DEVYN 10/16/2025External Result Encounter [facility]OMS External Department Unsolicited Nathan Pop, DO 10/16/2025linisync Result Encounter NOMS External Department Unsolicited Nathan Pop, DO 10/14/2025 3:30 PM ESTRoutine [facility] [place] [facility] [address] [place] [address] Nathan Pop, DO 33 weeks gestation of ([facility]); Third trimester ([facility])10/14/2025amboo flowsheet [facility] [place] [facility] [address] [place] [address] Nathan Pop, DO 10/13/20252766Qreyor55/17/2025linisync Result Encounter [facility]OMS External Department Unsolicited aNthan Pop, DO 10/11/2025linisync Result Encounter NOMS External Department Unsolicited Nathan Pop, DO 10/09/2025bstract [facility] [place] [facility] [address] [place] [phone] Nathan Pop, DO 10/03/2025linisync Result Encounter NOMS External Department Unsolicited Steph Keane, DEVYN 10/01/2025Telephone [facility] [place] [facility] [address] [place] [address] Nathan Pop, DO 09/30/2025 3:00 PM ESTRoutine [facility] [place] [address] Nathan Pop, DO Third trimester ([facility]); 31 weeks gestation of ([facility]); Pre-eclampsia in third trimester ([facility])09/30/2025amboo flowsheet [facility] [place] [place] [address] Nathan Pop, DO 09/26/2025linisync Result Encounter NOMS External Department Unsolicited Steph Keane NP 09/23/20252247Kxdbug24/25/2025linisync Result Encounter NOMS External Department Unsolicited Steph Keane NP 09/16/2025 3:20 PM EDTRoutine [facility] [place] [facility] [address] [place] [address] Nathan Pop, DO 29 weeks gestation of ([facility]); Third trimester ([facility]); Hypertension affecting , antepartum ([facility]); Gestational diabetes mellitus (GDM), antepartum, gestational diabetes method of control unspecified([facility])09/16/2025amboo flowsheet [facility] [place] [facility] [address] [place] [address] Nathan Pop, DO 09/11/2025bstract [facility] [place] [facility] [address] [place] [address] Nathan Pop, DO 09/09/20254425Jywlxw37/09/2025 3:50 PM EDTRoutine [facility] [place] [facility] [address] [place] [address] Steph Keane NP Hypertension affecting , antepartum ([facility]) (Primary Dx); 27 weeks gestation of ([facility]); Second trimester ([facility])09/03/2025linisync Result Encounter NOMS External Department Unsolicited Nathan Pop, DO 09/03/2025amboo flowsheet [facility] [place] [facility] [address] [place] [address] Steph Keane NP 09/02/20254382Linnxx39/04/2025linisync Result Encounter NOMS External Department Unsolicited Steph Keane NP 08/28/2025bstract [facility] [address] [place] [phone] Eliceo Beltran, DO 08/28/2025Telephone [facility] [place] [facility] [address] [place] [address] Radha Rahman MA 08/27/2025 3:20 PM EDTRoutine [facility] [place] [facility] [address] [place] [address] Steph Keane, DEVYN 26 weeks gestation of ([facility]); Second trimester ([facility]); induced hypertension, antepartum ([facility]); Gestational diabetes mellitus (GDM) in second trimester, gestational diabetes method of control unspecified ([facility])08/27/2025linisync Result Encounter [facility]OMS External Department Unsolicited Steph Keane NP 08/27/2025linisync Result Encounter NOMS External Department Unsolicited Steph Keane NP 08/27/2025amboo flowsheet [facility] [place] [facility] [address] [place] [address] Steph Keane NP 08/25/2025linisync Result Encounter NOMS External Department Unsolicited Provider, Generic External Data 08/20/2025bstract [facility] [place] [facility] [address] [place] [address] Nathan Pop, 08/20/2025Telephone [facility] [place] [facility] [address] [place] [address] Steph Keane, DEVYN 08/17/2025bstract [facility] [address] [place] [phone] Eliceo Beltran, DO 08/17/2025bstract [facility] [address] [place] [address] Eliceo Beltran, DO 08/17/2025Telephone [facility] [facility] [address] [place] [address] Nathan Pop, DO 08/13/2025bstract [facility] [place] [facility] [address] [place] [address] Nathan Pop, DO 08/12/2025 2:40 PM EDTRoutine [facility] [place] [facility] [address] [place] [address] Nathan Pop, DO 24 weeks gestation of ([facility]); Second trimester ([facility]); Elevated glucose tolerance test08/12/2025 2:00 PM EDTAncillary Procedure [facility] [place] [facility] [address] [place] [address] Encounter for follow-up ultrasound of anatomy ([facility])08/12/2025bstract [facility] [place] [facility] [address] [place] [address] Nathan Pop, DO 08/12/2025bstract [facility] [place] [facility] [address] [place] [address] Nathan Pop, DO 08/12/2025Telephone [facility] [address] [place] [phone] Bill Gould LPN Gwnhuly0008/12/2025bstract [facility] [address] [place] [address] Eliceo Beltran, DO 08/04/2025bstract [facility] [place] [facility] [address] [place] [address] Nathan Pop, DO 08/04/2025Telephone [facility] [address] [place] [address] Bill Gould LPN Joahjfc0607/30/2025 3:40 PM EDTOffice Visit [facility] [address] [place] [address] Eliceo Beltran, Wellness examination (Primary Dx); Hypertension, unspecified type ; Lipid ztyycapjh36/04/2025amboo flowsheet [facility] [address] [place] [address] Eliceo Beltran, 07/30/20253398Ctokks98/26/2025Telephone [facility] [place] [facility] [address] [place] [address] [place] [address] Nathan Pop DO from Last 3 Months Immunizations ImmunizationAdministration DatesNext DueDTP / HiB08/01/1996,1995, 1995DTaP, Tlxllowxpcm11/08/2000,12/29/1997HPV, Drgxksgcwwtr08/17/2014, 05/04/2014,2014Hep A, Adult09/11/2014,2014Hep B, Adolescent or Cssospizf66/06/1996,1995,1995IPV05/03/2000Influenza, seasonal, injectable, preservative free09/11/2014MMR05/03/2000,08/01/1996Meningococcal WAC7C3304/03/2007OPV08/01/1996,1995,1995Tdap2014 Family History Medical HistoryRelationNameCommentsAnemiaFatherColon cancerFatherCancerMaternal GrandfatherbutchHypertensionMaternal GrandfatherbutchBreast cancerMaternal GrandmotherHypertensionMotherdarleneColon cancerPaternal GrandfatherRelationName StatusCommentsFatherDeceasedMaternal GrandfatherbutchMaternal GrandmotherMother darleneAlivePaternal GrandfatherPaternal GrandmotherAlive Social History Tobacco UseTypesPacks/DayYears UsedDateSmoking Tobacco: NeverSmokeless Tobacco: Never Tobacco Cessation:Counseling Given: Not Answered Alcohol UseStandard Drinks/WeekCommentsNever0 (1 standard drink = 0.6 oz pure alcohol)caffeine: 1-2 cups per day, coffee and zayZ8414 Health LiteracyAnswer Date RecordedHow often do you [...] week12/29/2024How often do you attend mormonism or zoroastrian services?Patient hjnifglz36/03/2025Do you belong to any clubs or organizations such as mormonism groups, unions, fraternal or athletic leodan ups, or school groups?No12/29/2024How often do you attend meetings of the clubs or organizations you belong to?Patient cjmxmujw18/03/2025re you , , , , never , [...] at all12/29/2024PHQ-2AnswerDate RecordedPatient Health Questionnaire-2 Score0 07/30/2025FinPark[facility] - Occupational Stress QuestionnaireAnswerDate RecordedDo you feel stress - tense, restless, nervous, or anxious, or unable to sleep at night because yourmind is troubled all the time - these days?Only a potmyu6212/29/2024Exercise Vital SignAnswerDate Recorded On average, how many [...] place to sleep or slept in 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 Not on fileNot on fileNot on file Last Filed Vital Signs Vital SignReadingTime TakenCommentsBlood Nwbfemng405/8411 3:29 PM EST Aorus032907/30/2025 3:36 PM QACIoxenytwbge22.2 ??C (97.1 ??F)07/30/2025 3:36 PM EDTRespiratory Cwcl072812/23/2022 4:16 PM ESTOxygen Ndhoulhndg01%07/30/2025 3:36 PM EDTInhaled Oxygen Concentration--Ezxqfq65.3 kg (168 lb 1.9 oz)10/14/2025 3:29 PM EKVIkjgjc478.5 cm (5' 2 )07/30/2025 3:36 PM EDTBody Mass Index30.7509 3:36 PM EDT Plan of Treatment DateTypeDepartmentCare Team (Latest Contact Info)Dtutpqatlja12/04/2025 9:00 AM ESTRoutine [facility] [place] [facility] [address] [place] [address] Nathan Pop DO [address] [place] [address] Health MaintenanceDue DateLast DoneCommentsCOVID-19 Vaccine (1 - 2025-26 season) 2025Influenza Vaccine (#1)/Pap Smear08/18/2027 08/18/2024, 08/15/2023, 06/20/2022, Additional history existsCervical Cancer Aridixolb23/09/2028HPV/Lazmsy64/neumococcal Vaccine: Pediatrics (0 to 5 Years) and At-Risk Patients (6 to 64 Years)Aged OutNo longer eligible based on patient's age to complete this topic Procedures Procedure NamePriorityDate/TimeAssociated DiagnosisCommentsUS OB BPP W NON-FQFEEW8610/17/2025 9:22 AM EST URINE CULTURE - QMSYFifhexg13/21/2025 1:30 PM EST [facility] UA (CLEAN/CATCH) FORM BUILDER/MICRO IF IND.Iruhqva4510/16/2025 1:30 PM EST CULTURE, URINE, PBIOPMAPHFO06/21/2025 1:30 PM EST POCT URINALYSIS FDEUCDQLDaipxwn41/19/2025 3:40 PM EST 33 weeks gestation of ([facility]) Third trimester ([facility]) [facility] ZHIMVkirusw37/17/2025 8:28 PM EST SRMCOH PROTHROMBIN TIME INR W/O GWZELuimygn12/17/2025 8:28 PM EST ALL EUXCturnuc28/17/2025 8:28 PM EST C[facility] CNOMiousjw13/17/2025 8:28 PM EST [facility] HGZYaldvku91/17/2025 8:28 PM EST ALL URIC FSNNNsrsdvz79/17/2025 8:28 PM EST TBH HLNDYDLOWOTeasorf69/17/2025 8:28 PM EST ALL NVIFykswyh62/17/2025 8:28 PM EST ALL CBC WITH AUTO XPQYKprtlts58/17/2025 8:28 PM EST [facility] URINE T PROTEIN CREAT HBZXEHccctco29/17/2025 7:05 PM EST [facility] UA (CLEAN/CATCH) FORM BUILDER/MICRO IF IND.Mwkceff9210/12/2025 7:05 PM EST US OB BPP W NON-RWRQKU9510/11/2025 1:46 PM EST US OB BPP W NON-ARRQHZ7310/03/2025 11:36 AM EST POCT URINALYSIS XUAOODTMCkvwhbi72/05/2025 3:13 PM EST Third trimester ([facility]) US OB BPP W NON-IRWIWM2009/26/2025 2:50 PM EDT US OB BPP W NON-QTELTS0909/19/2025 12:17 PM EDT POCT URINALYSIS HCADVJKJOeowoek49/22/2025 4:09 PM EDT 29 weeks gestation of ([facility]) Third trimester ([facility]) ALL CBC WITH AUTO LBJCOvmepdz74/09/2025 5:15 PM EDT MHPT NFIRFZSWSVUwqbolf24/09/2025 5:15 PM EDT CCF QNIUHeukhab01/09/2025 5:15 PM EDT SRMCOH PROTHROMBIN TIME INR W/O GTDFNaezuub43/09/2025 5:15 PM EDT C[facility] UONRrotqkg31/09/2025 5:15 PM EDT CCF TFNIhjatgu65/09/2025 5:15 PM EDT ALL URIC FARRHhmjdgg60/09/2025 5:15 PM EDT TBH DVYQFLXHLYMhcclkm81/09/2025 5:15 PM EDT ALL MIQCccngwl95/09/2025 5:15 PM EDT TB[facility] URINE T PROTEIN CREAT XPULOPyschra29/09/2025 5:05 PM EDT POCT URINALYSIS EZFMSXFSHrthxqp04/09/2025 4:26 PM EDT 27 weeks gestation of ([facility]) TBH TOTAL PROTEIN 24 HOUR FCARJMwwojlc19/04/2025 8:00 AM EDT US OB BPP W NON-MSJTSM4308/27/2025 6:02 PM EDT TBH URINE T PROTEIN CREAT HFUMTQwxsmtt15/02/2025 5:50 PM EDT CCF OFGFeoubtl13/02/2025 5:00 PM EDT CCF MTTHDdycvjb87/02/2025 5:00 PM EDT SRMCOH PROTHROMBIN TIME INR W/O ORHNZdijuut30/02/2025 5:00 PM EDT ALL XXIPjdidug80/02/2025 5:00 PM EDT CCF ZSDOxrjxwo28/02/2025 5:00 PM EDT ALL URIC ABDRDwbgtiv48/02/2025 5:00 PM EDT TBH TKCCTVUFAXUmymzeu80/02/2025 5:00 PM EDT ALL XMAEgsraxv07/02/2025 5:00 PM EDT ALL CBC WITH AUTO GSCHTqoxcbs44/02/2025 5:00 PM EDT POCT URINALYSIS GMQGEOAWOlzrgul55/02/2025 3:53 PM EDT 26 weeks gestation of ([facility]) URINE CULTURE, VHRGRGRSocaren70/30/2025 8:10 AM EDT POCT URINALYSIS ZVTHCSFPRikhuye21/17/2025 2:39 PM EDT 24 weeks gestation of ([facility]) Second trimester ([facility]) US OB LIMITED 1+ CXCSNISIvgnxhl13/17/2025 2:22 PM EDT Encounter for follow-up ultrasound of anatomy ([facility]) PAP FFYEFYsyxspv35/23/2024 12:00 AM EDTTHINPREP PAP AND HPV MRNA E6/E7 W/RFL HPV 16,18/42Kecipql82/09/2023 4:00 PM EDT Well woman exam with routine gynecological exam from Last 3 Months or Most Recently Relevant to Health Maintenance Results * US OB BPP W NON-STRESS (10/17/2025 9:22 AM EST) Only the most recent of6 resultswithin the time period is included. Anatomical RegionLateralityModalityOtherSpecimen (Source)Anatomical Location / LateralityCollection Method / VolumeCollection TimeReceived Time10/17/2025 9:22 AM EST Narrative 10/17/2025 9:25 AM EST [facility] ?[address] ? [place] [address] ? Ultrasound Report ? Signed ? Patient: JAYY,DRISS M ?MR#: [id number] ?? : 1995 ?Acct:[id number] ?? Age/Sex: 30 / F ?ADM Date: 11/22/25 ?? Loc: US ? Attending Thony Keane ? Ordering Physician: Steph Keane ?? Date of Service: 10/17/25 ?? Procedure(s): US OB BPP w non-stress ?? Accession Number(s): [id number] ? cc: Steph Keane; Yomaira BELTRAN ? [facility] ? [address] ? [place] [address] ? Patient Name: ?? DRISS GAMA ? MRN: [facility]:[id number] ? date: 1995 ?Sex: F ?? Assigned Patient Location: [facility] ?? Current Patient Location: ? Accession/Order Number: [id number] ?? Exam Date: 10/17/2025 ??08:11 ?Report Date: 10/17/2025 ??09:22 ? At the request of: ?? STEPH ??ELSA ? Procedure: ??US OB BPP w non-stress ? Biophysical profile. ? Reason for exam: Gestational diabetes ? COMPARISON: 10/10/2025 ? TECHNIQUE: Transabdominal imaging of the gravid uterus was obtained. ? FINDINGS: The gray mixing operator reports a BPP of 8 out of 8. ??LEONEL is normal at 13.2 ?? cm. ?? heart rate 144 bpm. ??Nuchal cord is present. ? US/US OB BPP w non-stress ?? IMPRESSION: BPP 8 out of 8. ?? Nuchal cord is present. ??This was reported to the nurse by the ultrasound ?? technologist. ? Impression dictated by: Junito Mcgrath Jr., D.OKaren ??10/17/2025 9:22 AM ? Dictation Location: RADIO-PC-18 ? Electronically authenticated by: [id number] ??Y ?? Date: 10/17/2025 ??09:22 ? Dictated By: ?Junito Mcgrath M.D. ? Signed By: ?10/17/25924 ? DD/ 1 ? TD/TT: ? Scientific Database Curator: Procedure Note Radiology, Radiologist, MD - 10/17/2025 [place] [address] Ultrasound Report Signed Patient: DRISS GAMA [facility] [id number] : 1995Acct:[id number] Age/Sex: 30 / FADM Date: 10/17/25 Loc: US Attending Dr: Steph Keane Ordering Physician: Steph Keane Date of Service: 10/17/25 Procedure(s): US OB BPP w non-stress Accession Number(s): [id number] cc: Steph Keane; Yomaira BELTRAN [place] [address] Patient Name: DRISS GAMA MRN: [facility]:[id number] date: 1995 Sex: F Assigned Patient Location: [facility] Current Patient Location: Accession/Order Number: [id number] Exam Date: 10/17/2025 08:11 Report Date: 10/17/2025 09:22 At the request of: STEPH KEANE Procedure: US OB BPP w non-stress Biophysical profile. Reason for exam: Gestational diabetes COMPARISON: 10/10/2025 TECHNIQUE: Transabdominal imaging of the gravid uterus was obtained. FINDINGS: The gray mixing operator reports a BPP of 8 out of 8. LEONEL is normal at13.2 cm. heart rate 144 bpm. Nuchal cord is present. US/US OB BPP w non-stress IMPRESSION: BPP 8 out of 8. Nuchal cord is present. This was reported to the nurse by the staff cytotechnologist. Impression dictated by: Junito Mcgrath Jr., D.O. 10/17/2025 9:22 AM Dictation Location: [place] [address] Electronically authenticated by: [id number] Y Date: 9:22 Dictated By: Junito Mcgrath M.D. Signed By:10/17/25924 DD/ 1 TD/TT: Scientific Database Curator: Authorizing ProviderResult TypeResult StatusSteph Keane NPCLINISYNC IMAGING Final Result * URINE CULTURE - [facility] (10/16/2025 1:30 [...] BLOOD ORDERABLES Final ResultPerforming OrganizationAddressCity/State/ZIP CodePhone Number [facility] * (ABNORMAL) [facility] UA (CLEAN/CATCH) FORM BUILDER/MICRO IF IND. (10/16/2025 1:30 PM EST) Only [...] DOCLINISYNCFinal Result Performing OrganizationAddressCity/State/ZIP CodePhone Number [facility] * Urine culture (10/16/2025 1:30 PM EST)ComponentValueRef RangeTest Method Analysis TimePerformed AtPathologist SignatureCARNEGIE [facility]Y [facility] [place] NOTE?20,000 colonies/ml mixed ?bacterial skin contaminants ?2 Days 10/18/2025 10:10 AM [facility] CtrSpecimen (Source)Anatomical Location / LateralityCollection Method / VolumeCollection TimeReceived Time Clean-Voided Midstream (Clean Void Midstream)10/16/2025 1:30 PM EST10/16/2025 4:19 PM EST Narrative [facility] - 10/18/2025 10:10 AM EST Diagnosis: HIGH BLOOD PRESSURE Comment: Authorizing ProviderResult TypeResult StatusCorey Kiesha ANTHONY MICROBIOLOGY - GENERAL ORDERABLESFinal ResultPerforming OrganizationAddressCity/State/ZIP Code Phone Number [facility] [address] [place] [phone], [facility] [address] [place] [phone] * (ABNORMAL) POCT urinalysis dipstick manually resulted [...] / Laterality Collection Method / VolumeCollection TimeReceived LvggNweuk56/ 3:40 PM EST Narrative Authorizing ProviderResult TypeResult StatusCorey Kiesha DOPOINT OF CARE TEST ENTER/EDIT ORDERABLESFinal Result * [facility] CREATININE (10/12/2025 8:28 PM EST) Only the most recent of3 resultswithin the time period is included. ComponentValueRef RangeTest MethodAnalysis TimePerformed AtPathologist Signature CREATININE0.740.55 - 1.02 mg/dLTBHTBH EGFR-AF [place]>60>=60 mL/min/1.73m 2TBH TBH EGFR-NON AF [place]>60>=60 mL/min/1.73m 2TBHSpecimen (Source)Anatomical Location / LateralityCollection Method / VolumeCollection TimeReceived Time 10/12/2025 8:28 PM EST10/12/2025 8:39 PM EST Narrative [facility] - 10/12/2025 8:59 PM EST Authorizing ProviderResult TypeResult StatusCorey Kiesha DOCLINISYNCFinal Result Performing OrganizationAddressCity/State/ZIP CodePhone Number [facility] * SRMCOH PROTHROMBIN TIME INR [...] Kiesha DOCLINISYNCFinal Result Performing OrganizationAddressCity/State/ZIP CodePhone Number [facility] * [facility] AST (10/12/2025 8:28 PM EST) Only the most recent of3 resultswithin the time period is included. ComponentValueRef RangeTest MethodAnalysis TimePerformed AtPathologist Signature ASPARTATE AMINO ZBNESPAPPSC2975 - 37 U/LTBHSpecimen (Source)Anatomical Location / LateralityCollection [...] ComponentValueRef RangeTest MethodAnalysis TimePerformed AtPathologist Signature ALANINE QUZELLEIUENJHMFJ8543 - 59 U/LTBHSpecimen (Source)Anatomical Location / LateralityCollection [...] Kiesha DOCLINISYNCFinal Result Performing OrganizationAddressCity/State/ZIP CodePhone Number [facility] * ALL LDH (10/12/2025 8:28 PM EST) Only the most recent of2 resultswithin the time period is included. ComponentValueRef RangeTest MethodAnalysis TimePerformed AtPathologist Signature LACTATE VOLMVFIJTWZDH91124 - 234 U/LTBHSpecimen (Source)Anatomical Location / LateralityCollection Method / VolumeCollection TimeReceived Time10/12/2025 8:28 PM EST10/12/2025 8:39 PM EST Narrative [facility] - 10/12/2025 8:59 PM EST Authorizing ProviderResult TypeResult StatusCorey Kiesha DOCLINISYNCFinal Result Performing OrganizationAddressCity/State/ZIP CodePhone Number [facility] * (ABNORMAL) ALL CBC WITH [...] - 35.2 g/dLTBHTBH RDW13.211.0 - 15.0 %TBHTBH [id number] - 450 10 3/uLTBHTBH MPV9.69.5 - 13.5 [...] Kiesha DOCLINISYNCFinal Result Performing OrganizationAddressCity/State/ZIP CodePhone Number [facility] * ALL BUN (10/12/2025 8:28 PM EST) Only the most recent of3 resultswithin the time period is included. ComponentValueRef RangeTest MethodAnalysis TimePerformed AtPathologist Signature BLOOD UREA OQRFKQCQ44.07.0 - 18.0 mg/dLTBHSpecimen (Source)Anatomical Location / LateralityCollection Method / VolumeCollection TimeReceived Time10/12/2025 8:28 PM EST10/12/2025 8:39 PM EST Narrative [facility] - 10/12/2025 8:59 PM EST Authorizing ProviderResult TypeResult StatusCorey Kiesha DOCLINISYNCFinal Result Performing OrganizationAddressCity/State/ZIP CodePhone Number [facility] * (ABNORMAL) [facility] URINE T PROTEIN CREAT RATIO (10/12/2025 7:05 PM EST) Only the most recent of3 resultswithin the time period is included. ComponentValueRef RangeTest MethodAnalysis TimePerformed AtPathologist Signature TOTAL PROTEIN URINE XYUIRV10.5(H)<=11.9 mg/dLTBHCREATININE URINE XVOFFL54.21 20.00 - 300.00 mg/dLTBHPROTEIN CREATININE RATIO URINE0.16TBHSpecimen (Source) Anatomical Location / LateralityCollection Method / VolumeCollection Time Received Time10/12/2025 7:05 PM EST10/12/2025 10:30 PM EST Narrative [facility] - 10/12/2025 10:40 PM EST Authorizing ProviderResult TypeResult StatusCorey Kiesha DOCLINISYNCFinal Result Performing OrganizationAddressCity/State/ZIP CodePhone Number [facility] * (ABNORMAL) MHPT FIBRINOGEN (09/03/2025 5:15 PM EDT)ComponentValueRef RangeTest MethodAnalysis TimePerformed AtPathologist CtxyevpggWUKWIICHTL744(H)200 - 400 mg/dLTBHSpecimen (Source)Anatomical Location / LateralityCollection Method / VolumeCollection TimeReceived Time09/03/2025 5:15 PM EDT1 5:21 PM EDT Narrative [facility] - 09/03/2025 5:45 PM EDT Authorizing ProviderResult TypeResult StatusCorey Kiesha DOCLINISYNCFinal Result Performing OrganizationAddressCity/State/ZIP CodePhone Number [facility] * (ABNORMAL) [facility] TOTAL PROTEIN 24 HOUR URINE (08/29/2025 8:00 AM EDT)Component ValueRef RangeTest MethodAnalysis TimePerformed AtPathologist SignatureTOTAL PROTEIN URINE DOINKJ58.6(H)<=11.9 mg/dLTBHTOTAL VOLUME 24 HOUR QNFJA681zX/24hr TBHTBH TOTAL PROTEIN 24 HOUR RPTAK235.6<=149.1 mg/24hrTBHSpecimen (Source) Anatomical Location / LateralityCollection Method / VolumeCollection Time Received Time08/29/2025 8:00 AM EDT1 10:35 AM EDT Narrative [facility] - 08/29/2025 12:08 PM EDT Authorizing ProviderResult TypeResult StatusGeneric External Data Provider CLINISYNCFinal ResultPerforming OrganizationAddressCity/State/ZIP CodePhone Number [facility] * URINE CULTURE, ROUTINE (08/25/2025 8:10 AM EDT)ComponentValueRef RangeTest MethodAnalysis TimePerformed AtPathologist SignatureURINE CULTURE, ROUTINE ??Urine Culture, Routine TBHURINE CULTURE, ROUTINEMixed urogenital floraTBHURINE CULTURE, LRLPBJS85,000- 50,000 colony forming units per mLTBHURINE CULTURE, ROUTINEPerformed at: [facility] LabCorewell Health Pennock HospitalTBHURINE CULTURE, [id number] [place], [place] [id number] URINE CULTURE, ROUTINELab Director: Cm Sandoval PhD, Phone: [phone] Specimen (Source)Anatomical Location / LateralityCollection Method / Volume Collection TimeReceived Time08/25/2025 8:10 AM EDT08/25/2025 8:30 AM EDT Narrative [facility] - 08/26/2025 10:07 PM EDT Authorizing ProviderResult TypeResult StatusGeneric External Data ProviderLAB BLOOD ORDERABLESFinal ResultPerforming OrganizationAddressCity/State/ZIP Code Phone Number [facility]IN[facility]MA TB * US OB limited 1+ fetuses [...] BY: Junito Alas MD Authorizing ProviderResult TypeResult StatusNathan Pop DOIMG OB [...] DO [address] [place] [address] PCP - GeneralFamily Medicine02/14/24 Eliceo Beltran DO [address] [facility] [address] [place] [id number] PCP - Medical [employer]07/27/2412
--- OUTSIDE RECORDS SUMMARY | 2025-10-21 10:09 | XMS_ITS | CCD ---
Author Organization [facility] Care Team Providers Care [employer] Offbearer Name Role Phone Unavailable Unavailable POCOPAL QUINTEROS Referring Unavailable DENNY RODRÍGUEZ Primary Care Unavailable OPAL LARA Referring Unavailable DENNY RODRÍGUEZ Primary Care Unavailable DENNY RODRÍGUEZ Primary Care Physician [phone] Domo Hodges Unavailable PAOLO DIALLO Attending Unavailable KATHE RYDER Admitting Unavailable KATHE RYDER Attending Unavailable Denny Rodríguez MD Primary Care Provider Denny Rodríguez MD Unavailable [phone] Denny Rodríguez MD Primary Care Provider Denny Rodríguez MD Unavailable [phone] Kita POCKET CLOSER, Zenobia Unavailable Keesha POCKET CLOSER, Trista R Unavailable [phone] Denny Rodríguez MD Primary Care Provider CHARLENE [...] Admitting Unavailable Kaftan DO Eliceo R Unavailable [phone] Yomaira BELTRAN Attending Unavailable KAFTAN, G [...] Care Provider Denny Rodríguez MD Unavailable Kita POCKET CLOSER, Zenobia Unavailable Keesha POCKET CLOSER, Trista R Unavailable ELICEO BELTRAN Attending Unavailable KIESHA, NATHAN Attending Unavailable KIESHA, NATHAN Attending Unavailable KIESHA, NATHAN Attending Unavailable KIESHA, NATHAN Attending Unavailable ELICEO BELTRAN Attending Unavailable KIESHA, NATHAN Attending Unavailable STEPH KEANE Attending Unavailable STEPH KEANE Attending Unavailable KIESHA, NATHAN Attending Unavailable KIESHA, NATHAN Attending Unavailable KERLINE AUGUSTNI Attending Unavailable KIESHA, NATHAN R Referring Unavailable RODRÍGUEZ, DENNY A Primary Care Unavailable MINE DENISE Attending Unavailable KIESHA, NATHAN R Referring Unavailable RODRÍGUEZ, DENNY A Primary Care Unavailable CHIVO SPRINGER Attending Unavailable KIESAH, NATHAN R Referring Unavailable RODRÍGUEZ, DENNY A Primary Care Unavailable Allergies Allergy ClassificationReported Allergen(s)Allergy TypeDate of OnsetReaction(s) Facility (4 sources)No Known Medication Allergies; Translations: [No Known Medication Allergies]Propensity to adverse reactions (disorder)[facility] Repository Medications Current Medications MedicationDrug Class(es)DatesSig (Normalized)Sig (Original)acetaminophen 325 mg / butalbital 50 mg / caffeine 40 mg oral tablet (14 sources)Barbiturate, Central Nervous System Stimulant, MethylxanthineStart: 02-19-2024 End: 42-77-0447ollc 1 tablet by mouth every six hours for headache ehpnmrycyt-yjsblbhvvcfmo-nsqpovsg 50-325-40 MG tablet Indications: Other migraine without status migrainosus, not intractable Take 1 tablet by mouth every 6 (six) hours if needed for headaches 20 tablet 02/19/2024 05/01/2025 Discontinuedatenolol 25 mg oral tablet (4 sources)beta-Adrenergic BlockerStart: 04-57-9885tqgy 1 mg by mouth once daily atenolol 25 mg Tab mg tab(s), Oral, Daily, Refills(s) 0 Start Date: 02/02/21 Status: OrderedStart: 08-06-2017 End: 07-57-8797umzl 1 tablet by mouth once dailyAtenolol 50 mg tablet Discontinued 50 MG PO Daily August 06, 2017 12:00am October 16, 2018 3 :34pmbaclofen suppository 10 mg (CPD) (8 sources)Start: 88-68-7272uymntabq suppository 10 mg (CPD) Indications: High- tone pelvic floor dysfunction , Chronic pelvic pain in female Unwrap and insert one suppository vaginally daily at bedtime. 30 Suppository 2 08/24/2023 Active Comment on above:Unwrap and insert one suppository vaginally daily at bedtime. Blood Glucose Monitoring Suppl (D-Care Glucometer) w/Device kit (20 sources)Start: 08-20-2025 End: 86-39-7160Aeuob Glucose Monitoring Suppl (D-Care Glucometer) w/Device kit Indications: Gestational diabetes mellitus (GDM), antepartum, gestational diabetes method of control unspecified ([facility]) , Elevated glucose tolerance test 1 kit Daily Use four times daily to check FSBS. In the morning prior to breakfast & 1 hour after each meal for a total of 4times daily. 1 kit 08/20/2025 08/20/2026 Activecephalexin 500 mg oral capsule (6 sources)Cephalosporin AntibacterialStart: 02-14-2021 End: 70-16-8717ozjs 1 capsule by mouth every twelve hoursKeflex 500 mg Cap 500 mg = 1 cap(s), Oral, q12hr, X 7 day(s), # 14 cap(s), Refills(s) 0 Start Date: 07/14/22 Stop Date: 07/21/22 Status: OrderedStart: 03-14-2019 End: 99-07-9026mryt 1 capsule by mouth every twelve hoursCephalexin (Keflex) 500 mg capsule Discontinued 500 MG PO Q12H 14 March 14, 2019 12:00am August 04, 2019 8:18amcyclobenzaprine hydrochloride 5 mg oral tablet (20 sources)Muscle RelaxantStart: 12-30-2024 End: 04-61-1413yzew 1 tablet by mouth in the morning, [...] 30 tablet 12/30/2024 01/09/2025 ActiveStart: 05-01-2023 End: 00-48-6010zvsb 1 tablet by mouth at bedtime as neededcyclobenzaprine (FLEXERIL) 5 mg tablet Indications: Dysmenorrhea , Chronic pelvic pain in female Take 1 tablet by mouth at bedtime as needed. 30 tablet 1 05/01/2023 ActiveStart: 75-57-1724xwrk 1 tablet by mouth three times daily as needed for muscle spasms cyclobenzaprine 10 mg Tab 10 mg = 1 tab(s), Oral, TID, PRN for spasm, # 30 tab(s), Refills(s) 0, Pharmacy: [facility], 157, cm, 01/23/22 7:20:00 EST, Height/Length Dosing, 55, kg, 01/23/22 7:20:00 EST, Weight Dosing Start Date: 01/23/22 Status: Ordered Quantity: 30.0 Unit: tab(s) Repeat number: 1 Comment on above:Take 1 tablet by mouth at bedtime as needed.cyproheptadine hydrochloride 4 mg oral tablet (10 sources)Start: 33-13-4094wlwy 1 mg by mouth three times dailycyproheptadine 4 mg Tab mg tab(s), Oral, TID, Refills(s) 0 Start Date: 02/02/21 Status: Ordered Repeat number: 1Dasetta oral tablet (1 source)Start: 35-01-0464xbnx 1 tablet by mouth once dailyDasetta oral tablet 1 tab(s), Oral, Daily, Refill(s) 0, control/menstrual regulation Start Date: 11/23/16 Status: Ordereddocusate sodium 100 mg oral capsule (7 sources)Start: 11-30-2022 End: 00-76-1469iozc 1 capsule by mouth twice daily as needed for constipation Docusate Sodium (DSS) 100 MG capsule Take 1 capsule (100 mg) by mouth 2 times daily as needed for constipation (Vaginal Delivery) for up to 10 days. 60 capsule 0 12/01/2022 12/31/2022 ActiveStart: 07-14-2022 End: 36-03-7450syay 1 capsule by mouth twice dailyColace 100 mg Cap 100 mg = 1 cap(s), Oral, BID, X 10 day(s), # 20 cap(s), Refills(s) 0 Start Date: 07/14/22 Stop Date: 07/24/22 Status: Orderedelagolix 150 mg oral tablet (13 sources)Start: 07-16-2023 End: 19-72-6342lllo 1 tablet by mouth once dailyelagolix (ORILISSA) 150 mg tablet Take 1 tablet (150 mg) by mouth once daily. 30 tablet 11 07/16/2023 07/15/2024 ActiveStart: 29-62-7171mbnw 1 tablet by mouth twice dailyOrilissa 200 MG Oral Tablet take 1 tablet by mouth twice a day Quantity: 60 Refills: 4 Ordered: 09-Feb-2022 Charlene Rodriguez DO Start : 09-Feb-2022 ActiveComment on above:Take 1 tablet (150 mg) by mouth once daily.ergocalciferol 0.05 mg oral capsule (1 source)Provitamin D2 CompoundStart: 65-87-8905Eyzbteb D2 2000 intl units oral capsule Oral, Daily, Refills(s) 0 Start Date: 02/02/21 Status: OrderedEthinyl Estradiol / Levonorgestrel (8 sources)Progestin, Estrogen, Progestin-containing Intrauterine DeviceStart: 04-03-2024 End: 18-86-3281jjjtkaueptraia-ethinyl estradiol (Jolessa) 0.15-0.03 MG tablet Indications: Uses control TAKE1 TABLET BY MOUTH EVERY MORNING 91 tablet 3 04/03/2024 08/18/2024 Discontinued (Other)Start: 86-80-3720mjhxtbzloryjav- ethinyl estradiol (Jolessa) 0.15-0.03 MG tablet Indications: Uses control TAKE1 TABLET BY MOUTH EVERY MORNING 91 tablet 3 04/03/2024 ActiveStart: 01-10-2024 End: 95-69-6720vlsp 1 tablet by mouth in the morning, then take 1 tablet by mouth once dailylevonorgestrel-ethinyl estradiol (Jolessa) 0.15-0.03 MG tablet Indications: Uses control Take1 tablet by mouth in the morning. Take 1 tablet by mouth daily. 90 tablet 0 01/10/2024 04/09/2024 Activeethinyl estradiol 0.035 mg / norgestimate 0.25 mg oral tablet (4 sources)Progestin, EstrogenStart: 37-99-0606gaesbihupfgt-ethinyl estradiol (Ortho-Cyclen) 0.25-35 MG-MCG tablet 1 (one) time each day at the same time. 0 01/15/2023 ActiveStart: 90-28-7664mwvq 1 tablet by mouth once dailyNorgestimate- Ethinyl Estradiol 0.25-35 mg-mcg tablet Active 1 TAB PO Daily August 04, 2019 12:00amMono-Linyah 0.25-35 MG-MCG Oral for 28 Not-TakinghydrOXYzine hydrochloride 25 mg oral tablet (10 sources)AntihistamineStart: 31-54-2409ipth 1 mg by mouth four times daily hydrOXYzine hydrochloride 25 mg Tab mg tab(s), Oral, QID, Refills(s) 0 Start Date: 02/02/21 Status: Ordered Repeat number: 1hyoscyamine sulfate 0.125 mg oral tablet (10 sources)Start: 84-62-2593xmkn 1 tablet by mouth every six hoursLevsin 0.125 mg SL Tab 0.125 mg = 1 tab(s), Oral, q6hr, # 20 tab(s), Refills(s) 1, Pharmacy: [facility], 161, cm, 03/10/21 11:21:00 EDT, Height/Length Dosing, 56, kg, 03/10/21 11:21:00 EDT, Weight Dosing Start Date: 03/10/21 Status: Ordered Quantity: 20.0 Unit: tab(s) Repeat number: 2ibuprofen 600 mg oral tablet (15 sources)Nonsteroidal Anti-inflammatory DrugStart: 01-23-2022 End: 59-03-2042ptub 1 tablet by mouth every six hoursibuprofen 600 mg Tab 600 mg = 1 tab(s), Oral, q6hr, # 40 tab(s), Refills(s) 0, [facility]: [facility], 157, cm, 01/23/22 7:20:00 EST, Height/Length Dosing, 55, kg, 01/23/22 7:20:00 EST, WeightDosing Start Date: 01/23/22 Status: Ordered Quantity: 40.0 Unit: tab(s) Repeat number: 1insulin glargine-yfgn (Semglee-yfgn) 100 UNIT/ML pen (8 sources)Start: 06-58-2123dhnazoy glargine-yfgn (Semglee-yfgn) 100 UNIT/ML pen Inject 13 Units under the skin at bedtime 09/15/2025 Activeinsulin glargine-yfgn 100 unit/mL (3 mL) insulin pen (16 sources)Start: 21-34-9065gubocck glargine-yfgn 100 unit/mL (3 mL) insulin pen Indications: Essential hypertension affecting in third trimester Prime with 2 units and give 5 units every morning and 23 units subQ at bedtime. 15 mL 3 09/28/2025 ActiveStart: 09-21-2025 End: 32-99-8847vbeiewg glargine-yfgn 100 unit/mL (3 mL) insulin pen Indications: Essential hypertension affecting in third trimester Prime with 2 units and give 5 units every morning and 20 units subQ at bedtime. 15 mL 3 09/21/2025 09/28/2025 DiscontinuedStart: 71-11-4342vebkdog glargine-yfgn 100 unit/mL (3 mL) insulin pen Indications: Essential hypertension affecting in third trimester Prime with 2 units and give 5 units every morning and 20 units subQ at bedtime. 15 mL 3 09/21/2025 ActiveStart: 09-17-2025 End: 41-62-7209tqfzkcd glargine-yfgn 100 unit/mL (3 mL) insulin pen Indications: Essential hypertension affecting in third trimester Prime with 2 units and give 5 units every morning and 17 units subQ at bedtime. 15 mL 3 09/17/2025 09/21/2025 DiscontinuedStart: 03-35-0965wycdjmb glargine-yfgn 100 unit/mL (3 mL) insulin pen Indications: Essential hypertension affecting in third trimester Prime with 2 units and give 5 units every morning and 17 units subQ at bedtime. 15 mL 3 09/17/2025 ActiveStart: 09-15-2025 End: 08-20-1897rrtmxhv glargine-yfgn 100 unit/mL (3 mL) insulin pen Indications: Essential hypertension affecting in third trimester Prime with 2 units and give 17 units subQ at bedtime. 15 mL 3 09/15/2025 09/17/2025 Discontinued Start: 60-70-2532jpgwmrm glargine-yfgn 100 unit/mL (3 mL) insulin pen Indications: Essential hypertension affecting in third trimester Prime with 2 units and give 17 units subQ at bedtime. 15 mL 3 09/15/2025 ActiveStart: 09-10-2025 End: 10-54-9464upzpxff glargine-yfgn 100 unit/mL (3 mL) insulin pen Indications: Essential hypertension affecting in third trimester Prime with 2 units and give 13 units subQ at bedtime. 15 mL 3 09/10/2025 09/15/2025 Discontinued Start: 89-91-0851tgvrilz glargine-yfgn 100 unit/mL (3 mL) insulin pen Indications: Essential hypertension affecting in third trimester Prime with 2 units and give 13 units subQ at bedtime. 15 mL 3 09/10/2025 ActiveStart: 09-04-2025 End: 95-13-4562zvdwuy 2 [IU] by subcutaneous injection once, then inject 10 [IU] by subcutaneous injection at bedtimeinsulin glargine-yfgn 100 unit/mL (3 mL) insulin pen Indications: Diet controlled gestational diabetes mellitus (GDM) in second trimester , Essential hypertension affecting in third trimester Prime with 2 units and give 10 units subQ at bedtime. 15 mL 3 09/04/2025 09/10/2025 DiscontinuedStart: 76-54-1688fqulcm 2 [IU] by subcutaneous injection once, then inject 10 [IU] by subcutaneous injection at bedtimeinsulin glargine- yfgn 100 unit/mL (3 mL) insulin pen Indications: Diet controlled gestational diabetes mellitus (GDM) in second trimester , Essential hypertension affecting in third trimester Prime with 2 units and give 10 units subQ at bedtime. 15 mL 3 09/04/2025 Activeisopropyl alcohol 0.7 ml/ml medicated pad (20 sources)Start: 95-22-2093Tkbwcfg Swabs (Alcohol Prep Pad) 70 % pads Indications: Gestational diabetes mellitus (GDM), antepartum, gestational diabetes method of control unspecified ([facility]) , Elevated glucose tolerance testApply 1 Pad topically Daily Use four times daily to check FSBS. 150 each 3 08/20/2025 Activeiv contrast (will be provided with radiology test) (12 sources)Start: 39-65-8241wg contrast (will be provided with radiology test) [...] 200 mg oral tablet (20 sources)beta-Adrenergic BlockerStart: 28-63-4293prkf 1 tablet by mouth in the morninglabetalol (Normodyne) 200 MG tablet Indications: Gestational Hypertension Take 1 tablet (200 mg) bymouth in the morning and 1 tablet (200 mg) before bedtime. 60 tablet 3 09/03/2025 ActiveStart: 07-30-2025 End: 76-11-5656dhjf 1 tablet by mouth in the morninglabetalol (Normodyne) 100 MG tablet Indications: Hypertension, unspecified type Take 1 tablet (100 mg) by mouth in the morning and 1 tablet (100 mg) before bedtime. 60 tablet 5 07/30/2025 09/03/2025 DiscontinuedStart: 11-28-2022 End: 48-33-0574zlbndhgko (Normodyne,Trandate) injection 20 mgStart: 11-28-2022 End: 87-21-3801pjbsygscp (Normodyne,Trandate) injection 20 mgStart: 11-28-2022 End: 04-25-6449hgjqjqxzb (Normodyne,Trandate) 5 MG/ML injection - Pyxis ADS Override Pulltake 2 tablets by mouth three times dailylabetaloL (NORMODYNE) 100 mg tablet Take 2 tablets (200 mg total) by mouth 3 (three) times a day. Active magnesium oxide 400 mg oral tablet (9 sources)Start: 05-01-2025 End: 85-20-7070rfxx 1 tablet by mouth once dailymagnesium oxide (Mag-Ox) 400 MG tablet Indications: headache in first trimester ([facility])Take 1 tablet (400 mg) by mouth Daily 30 tablet 3 05/01/2025 05/31/2025 Activemeloxicam 15 mg oral tablet (15 sources)Nonsteroidal Anti-inflammatory DrugStart: 02-02-2021 End: 72-49-0956djyr 1 tablet by mouth once dailymeloxicam (Mobic) 15 MG tablet Indications: Chronic right shoulder pain , Scapular dyskinesis Take 1 tablet (15 mg) by mouth Daily 30 tablet 3 12/30/2024 05/01/2025 Niqftazsoshe69 hr metoprolol succinate 25 mg extended release oral tablet (20 sources)beta-Adrenergic BlockerStart: 10-15-2024 End: 74-01-5443yagq 1 tablet by mouth once dailymetoprolol succinate XL (Toprol- XL) 25 MG 24 hr tablet Indications: Hypertension, unspecified type Take 1 tablet by mouth daily 90 tablet 1 12/30/2024 ActiveStart: 73-66-4313gjyp 1 tablet by mouth once dailymetoprolol succinate XL (Toprol-XL) 25 MG 24 hr tablet Indications: Hypertension, unspecified type (CMS/HCC) Take 1 tablet by mouth daily 90 tablet 1 04/23/2024 ActiveStart: 30-40-0558uwkm 1 tablet by mouth once dailymetoprolol succinate XL (Toprol-XL) 25 MG 24 hr tablet Indications: Hypertension, unspecified type (CMS/HCC) Take 1 tablet by mouth daily 90 tablet 1 10/23/2023 ActiveStart: 02-27-2023 End: 06-73-2239znkdmdston succinate ER (TOPROL XL) 25 mg 24 hr tabletnaproxen 500 mg delayed release oral tablet (20 sources)Nonsteroidal Anti-inflammatory DrugStart: 91-67-5153dkgs 1 tablet by mouth twice dailynaproxen 500 mg oral enteric coated tablet 500 mg = 1 tab(s), Oral, BID, # 28 tab(s), Refills(s) 0 Start Date: 11/07/21 Status: Ordered Quantity: 28.0 Unit: tab(s) Repeat number: 1Start: 03-04-2021 End: 79-55-0542fmzh 1 tablet by mouth twice dailynaproxen 500 mg Tab 500 mg = 1 tab(s), Oral, BID, Take one tab by mouth two times a day, # 14 tab(s), Refills(s) 0, [facility] 157, cm, 03/04/21 7:22:00 EDT, Height/Length Dosing,52, kg, 03/04/21 7:22:00 EDT, Weight Dosing Start Date: 03/04/21 Status: Ordered Quantity: 14.0 Unit:tab(s) Repeat number: 1Start: 11-02-2018 End: 60-73-3208ebwz 1 tablet by mouth twice daily as [...] (5 sources)Dihydropyridine Calcium Channel BlockerStart: 11-28-2022 End: 40-82-0304BJXYqmesdp XL (Procardia XL) 30 MG 24 hr tablet Take 1 tablet (30 mg) by mouth daily. Do not crush,chew, or split. Do not start before December 02, 2022. 90 tablet 0 12/02/2022 12/02/2023 Activenorethindrone acetate 5 mg oral tablet (20 sources)Start: 05-17-2023 End: 27-75-5061lame 2 tablets by mouth once dailynorethindrone (AYGESTIN) 5 mg tablet Take 2 tablets by mouth once daily. 60 tablet 5 01/03/2024 07/01/2024 ActiveStart: 04-11-2023 End: 02-94-9735xsqk 1 tablet by mouth once dailynorethindrone (AYGESTIN) 5 mg tablet Take 1 tablet by mouth once daily. 30 tablet 11 04/11/2023 ActiveStart: 87-58-1049bcar 1 tablet by mouth once dailyNorethindrone Acetate [...] mg/ml rectal foam (2 sources)Start: 07-14-2022 End: 68-05-1943recg 15 g rectal route twice dailyProctoFoam 1% Foam apply, Rectal, BID for 7 day(s), 15 gm, Refill(s) 0 Start Date: 07/14/22 Stop Date: 07/21/22 Status: OrderedPrenatal Multivitamins with Vitamin B Complex, Vitamin C, Minerals and L-Methylfolate oral capsule (9 sources)Start: 42-94-5799Lpwvuupj Multivitamins with Vitamin B Complex, Vitamin C, Minerals and L-Methylfolate oral capsule 1 cap(s), Oral, Daily, 30 cap(s), Refill(s) 0 Start Date: 07/14/22 Status: Ordered Quantity: 30.0 Unit: cap(s) Repeat number: 1Start: 71-93-5074Zqfprrpe Multivitamins with Vitamin B Complex, Vitamin C, Minerals and L-Methylfolate oral capsule 1 cap(s), Oral, Daily, 30 cap(s), Refill(s) 0 Start Date: 07/14/22 Status: OrderedPrenatal Vit-Fe Fumarate-FA ( Vitamin) 27-0.8 MG tablet (3 sources) Vit-Fe Fumarate-FA ( Vitamin) 27-0.8 MG tablet Take by mouth. 0 ActivePrenatal Vit-Fe Fumarate-FA ( Vitamins) 28-0.8 MG tablet (20 sources)Start: 05-01-2025 End: 46-66-6764uyzr 1 tablet by mouth once dailyPrenatal Vit-Fe Fumarate-FA ( Vitamins) 28-0.8 MG tablet Indications: , unspecified gestational age ([facility]) , Encounter for supervision of normal first in first trimester([facility]) Take 1 tablet by mouth Daily 30 tablet 11 05/01/2025 05/01/2026 ActiveStart: 05-01-2025 End: 85-70-8763kyus 1 tablet by mouth once dailyPrenatal Vit-Fe Fumarate-FA ( Vitamins) 28-0.8 MG tablet Indications: , unspecified gestational age , Encounter for supervision of normal first in first trimester Take 1 tablet by mouth Daily 30 tablet 11 05/01/2025 05/01/2026 Active SUMAtriptan 100 mg oral tablet (10 sources)Serotonin-1b and Serotonin-1d Receptor AgonistStart: 88-22-7662uslv 1 mg by mouth onceImitrex 100 mg Tab mg tab(s), Oral, Once, Refills(s) 0 Start Date: 02/02/21 Status: Ordered Repeat number: 1Surgical Lubricant Jelly gel (12 sources)Start: 98-49-6992Lojdfnxm Lubricant Jelly gel For MRI Female Pelvis, MRI department to provide. Administer intra-vaginal Surgilube immediately prior the MRI procedure (total amount to patient toleranace). 1 g 0 05/17/2023 Active Comment on above:For MRI Female Pelvis, MRI department to provide. Administer intra-vaginal Surgilube immediately prior the MRI procedure (total amount to patient toleranace).tiZANidine 4 mg oral tablet (3 sources)Central alpha-2 Adrenergic AgonistStart: 10-63-3534nnsx 1 mg by mouth every eight hourstiZANidine 4 mg Tab mg tab(s), Oral, q8hr, Refills(s) 0 Start Date: 02/02/21 Status: OrderedtraMADol hydrochloride 50 mg oral tablet (10 sources)Opioid AgonistStart: 81-30-5783wwpz 1 tablet by mouth every four hours as needed for paintraMADol (ULTRAM) 50 mg tablet Indications: Pelvic pain in female Take 1 tablet by mouth every 4 hours as needed for pain. 20 tablet 0 08/30/2023 ActiveStart: 04-80-6079vipr 1 tablet by mouth every six hourstraMADol HCl - 50 MG Oral Tablet TAKE 1 TABLET Every 6 hours Quantity: 20 Refills: 0 Ordered: 18-Aug-2020 Charlene Rodriguez DO Start : 18-Aug-2020 ActiveStart: 03-12-2019 End: 34-54-8219xexp 1 tablet by mouth every four hours as needed for pain Tramadol 50 mg tablet Discontinued 50 MG PO Q4H as needed for pain 30 5 March 12, 2019 12:00am August 04, 2019 8:19amComment on above:Take 1 tablet by mouth every 4 hours as needed for pain.Vitamin D2 2000 intl units oral capsule (9 sources)Start: 06-88-4063lpso 1 capsule by mouth once dailyVitamin D2 2000 intl units oral capsule Oral, Daily, Refills(s) 0 Start Date: 02/02/21 Status: Ordered Repeat number: 1Start: 82-64-1403Pbztdnt D2 2000 intl units oral capsule Oral, Daily, Refills(s) 0 Start Date: 02/02/21 Status: Ordered Completed/Discontinued Medications MedicationDrug Class(es)DatesSig (Normalized)Sig (Original)acetaminophen 325 mg oral tablet (4 sources)Start: 11-30-2022 End: 08-47-7012tabi 1 tablet by mouth every six hours as needed for djxt174 mg, Oral, Every 6 hours PRN, mild pain (1-3), Starting on Constance 11/30/22 at 0422 Give in addition to any other pain medication ordered at same time for any pain indication. Maximumdose of acetaminophen is 4000 mg from all sources in 24 hours. Alternate ibuprofen and acetaminophen every 3 hours.Start: 11-28-2022 End: 59-58-5792xjmuewolebqzm (Tylenol) tablet 1,000 mgacetaminophen 300 mg / codeine phosphate 30 mg oral tablet (4 sources)Opioid AgonistStart: 01-19-2025 End: 90-21-4321mdvj 1 tablet by mouth every six hours for painacetaminophen- codeine (Tylenol w/ Codeine #3) 300-30 MG tablet Indications: Pain in female genitalia on intercourse , Endometriosis Take 1 tablet by mouth every 6 (six) hours if needed for severe pain for up to 5 days 20 tablet 01/19/2025 01/24/2025 ExpiredStart: 07-22-2024 End: 92-54-1532wfag 1 tablet by mouth every six hours for painacetaminophen- codeine (Tylenol w/ Codeine #3) 300-30 MG tablet Indications: Dysmenorrhea, unspecified Take 1 tablet by mouth every 6 (six) hours if needed for severe pain for up to 5 days 20 tablet 07/22/2024 07/27/2024 Activeascorbic acid 500 mg oral tablet (5 sources)Vitamin CStart: 10-25-2018 End: 67-08-1714lsxv 2 tablets by mouth in the morningASCORBIC ACID WITH ISAURO HIPS 500 MG tablet Take 2 tablets (1,000 mg total) by mouth in the morning.0 10/25/2018 09/04/2025 Discontinued ()aspirin 325 mg / butalbital 50 mg / caffeine 40 mg oral capsule (11 sources)Platelet Aggregation Inhibitor, Barbiturate, Nonsteroidal Anti- inflammatory Drug, Central Nervous System Stimulant, Methylxanthine End: 29-14-4675knij 1 capsule by mouth every four hours as needed zbojpneqnc-obtgwbf-xqtjntma (Fiorinal) 50-325-40 MG capsule Take 1 capsule [...] spray (2 sources)Standardized Chemical AllergenStart: 11-30-2022 End: 03-91-1517Fzdrswm, As needed, pain, , Starting on Constance 11/30/22 at 0608, Apply to perineal area. Patient is capable and may self administer at bedside.betamethasone 3 mg/ml / betamethasone acetate 3 mg/ml injectable suspension (2 sources)CorticosteroidStart: 11-28-2022 End: 78-17-4317jnufiwjkznadp acetate-betamethasone sodium phosphate (Celestone) injection 12 mgcalcium chloride 0.0014 meq/ml / potassium chloride 0.004 meq/ml / sodium chloride 0.103 meq/ml / sodium lactate 0.028 meq/ml injectable solution (2 sources)Start: 11-28-2022 End: 92-34-9274sbdt 125 mL intravenously every twph668 mL/hr, IntraVENous, Continuous, Starting on Sun11/28/22 at 0100, Pre-Deliverycetirizine hydrochloride 10 mg oral tablet (17 sources)Histamine-1 Receptor AntagonistStart: 06-09-2025 End: 74-18-2488nwlw 1 tablet by mouth once dailycetirizine (ZyrTEC ALLERGY) 10 MG tablet Indications: Allergy, sequela Take 1 tablet (10 mg) by mouth Daily 30 tablet 11 06/09/2025 07/15/2025 DiscontinuedchlordiazePOXIDE hydrochloride 5 mg / clidinium bromide 2.5 mg oral capsule (1 source)Anticholinergic, BenzodiazepineStart: 88-70-1937cvap 1 capsule by mouth every eight hourschlordiazePOXIDE-Clidinium 5-2.5 MG 1 capsule before meals Orally Three times a day for 30 day(s) May, Not-Taking chlorhexidine gluconate 20 mg/ml medicated pad (2 sources)Start: 11-28-2022 End: 98-56-7638dcvzy 1 dose topically every six hoursTopical, Every 6 hours, First dose on Sun11/28/22 at 0100, Pre-Delivery Apply to the affected area.&a mp;nbsp; Clean entire abdomen.cholecalciferol 0.125 mg oral capsule (5 sources)Vitamin DStart: 10-25-2018 End: 56-95-1180qyle 1 capsule by mouth in the morningcholecalciferol, vitamin D3, (VITAMIN D3) 5,000 units capsule Take 1 capsule (5,000 Units total) bymouth in the morning. 0 10/25/2018 09/04/2025 Discontinued ()desogestrel 0.15 mg / ethinyl estradiol 0.03 mg oral tablet (11 sources)Progestin, EstrogenStart: 07-22-2024 End: 27-60-2941inidumvpssp-ethinyl estradiol (Apri) 0.15-30 MG-MCG tablet Indications: Dysmenorrhea, unspecified Take 1 tablet by mouth Daily 21 tablet 12 10/20/2024 01/19/2025 Discontinued (Other)diphenhydrAMINE (BENADryl) injection 25 mg (2 sources)Start: 11-30-2022 End: 83-16-2561qshd 25 mg intravenously every six hours as neededdiphenhydrAMINE (BENADryl) injection 25 mgNorethindrone-E.Estradiol-Iron (1 source)EstrogenStart: 10-17-2017 End: 82-96-2867mztv 1 tablet by mouth once dailyNorethindrone-E.Estradiol-Iron (Lo Loestrin Fe) 1 mg-10 mcg (24)/10 mcg (2) tablet Discontinued 1 TAB PO Daily October 17, 2017 1:00am March 12, 2019 6:15amEthinyl Estradiol / Norethindrone (7 sources)EstrogenStart: 12-01-2018 End: 18-25-0933mjzr 0.05 ug by mouth once in the eveningnorethindrone ac-eth estradiol (MICROGESTIN 1/20) 1-20 mg-mcg per tablet Take 1 tablet by mouth in t he evening. 0 12/01/2018 09/04/2025 Discontinued ()Start: 12-01-2018 take 0.05 ug by mouth once in the eveningnorethindrone ac-eth estradiol (MICROGESTIN 1/20) 1-20 mg-mcg per tablet Take 1 tablet by mouth in the evening. 0 12/01/2018 ActiveStart: 59-55-5411frpj 1 tablet by mouth once dailyDasetta oral tablet 1 tab(s), Oral, Daily, Refill(s) 0, control/menstrual regulation Start Date: 11/23/16 Status: Orderedfamotidine 20 mg oral tablet (2 sources)Histamine-2 Receptor AntagonistStart: 11-30-2022 End: 54-55-7723ssxz 20 mg by mouth twice daily as needed for gastroesophageal reflux ewyciiw14 mg, Oral, 2 times daily PRN, heartburn, Starting on Constance 11/30/22 at 0608, Renal dose per pharmacy for peptic ulcer prophylaxis.ferrous sulfate 325 mg oral tablet (8 sources)Start: 11-30-2022 End: 51-03-8014erwr 325 mg by mouth twice daily at ilftpumf640 mg, Oral, 2 times daily with meals, First dose on Constance 11/30/22 at 0800, Start if Hgb le ss than 10. End: 24-55-1113mmcq 1 tablet by mouth in the morningFerrous Sulfate (IRON PO) Take 1 tablet by mouth in the morning. 09/16/2025 Discontinuedtake 1 tablet by mouth in the morningFerrous Sulfate (IRON PO) Take 1 tablet by mouth in the morning. ActiveFLUoxetine 20 mg oral capsule (17 sources)Serotonin Reuptake InhibitorStart: 86-88-2958mbvj 1 capsule by mouth once dailyFLUoxetine HCl - 20 MG Oral Capsule TAKE 1 CAPSULE Daily Quantity: 30 Refills: 11 Ordered: 02-Jun-2021 Kuldip DAY Charlene Start : 02-Jun-2021 Active Start: 11-02-2018 End: 25-87-3643elzk 1 capsule by mouth once dailyFluoxetine (Prozac) 20 mg capsule Discontinued 20 MG PO Daily November 02, 2018 1:00am August 04, 2019 8:19amtake 1 capsule by mouth once dailyFLUoxetine (PROZAC) 10 mg capsule Take 10 mg by mouth once daily. 0 ActiveComment on above:Take 10 mg by mouth once daily.fluticasone propionate 0.05 mg/actuat metered dose nasal spray (16 sources)CorticosteroidStart: 06-22-2025 End: 82-81-1961imuf 1 spray(s) nasal route once dailyfluticasone (Flonase) 50 MCG/ACT nasal spray Indications: Sinusitis, unspecified chronicity, unspecified location Administer 1 spray into each nostril Daily Shake gently. Before first use, prime pump. After use, clean tip and replace cap. 16 g 12 06/22/2025 07/15/2025 Discontinued End: 57-83-2748gjyk 1 spray(s) nasal route in the morningfluticasone (Flonase) 50 MCG/ACT nasal spray Administer 1 spray into affected nostril(s) in the morn ing. 09/16/2025 Discontinued End: 99-39-5582kwkh 1 spray(s) nasal route in the morningfluticasone propionate (FLONASE) 50 mcg/actuation nasal spray Administer 1 spray into each nostril in the morning. 09/04/2025 Discontinued ()lanolin 1000 mg/ml topical cream (2 sources)Start: 11-30-2022 End: 31-26-3324Kxsaayf, As needed, dry skin, nipple discomfort, Starting on Sun11/30/22 at 0608, Apply to affected area.500 ml magnesium sulfate 40 mg/ml injection (4 sources)Start: 11-28-2022 End: 96-00-9028swwyqgmgz sulfate 20 GM/500ML infusionStart: 11-28-2022 End: 79-66-5547ixqtvhksh sulfate 20 GM/500ML infusion - Pyxis ADS Override Pull metoclopramide 10 mg oral tablet (2 sources)Dopamine-2 Receptor AntagonistStart: 66-75-2699usus 1 tablet by mouth every eight hoursReglan 10 MG 1 tablet before meals Orally tid for 30 day(s) March, Not-TakingmiSOPROStol 0.2 mg oral tablet (2 sources)Prostaglandin E1 AnalogStart: 11-30-2022 End: 97-56-5188weLNDHIIgwo (Cytotec) tablet 1,000 mcgStart: 11-30-2022 End: 83-01-4227wtINBLTBwus (Cytotec) tablet 1,000 mcgmiSOPROStol (Cytotec) split tablet 25 mcg (2 sources)Start: 11-28-2022 End: 58-44-4354koya 1 tablet vaginal route every four hoursmiSOPROStol (Cytotec) split tablet 25 mcg1 ml morphine sulfate 4 mg/ml injection (4 sources)Opioid AgonistStart: 11-28-2022 End: 48-66-8160husqxupa sulfate (PF) injection 4 mgnitrofurantoin, macrocrystals 25 mg / nitrofurantoin, monohydrate 75 mg oral capsule (6 sources)Nitrofuran AntibacterialStart: 07-94-7705Gsroqtiwcznsbo Monohyd Macro 100 MG Oral Capsule TAKE 1 CAPSULE Other Please take one capsule aftersexual intercourse to prevent UTI Quantity: 30 Refills: 11 Ordered: 01-Apr-2021 Teri Chau MD Start : 01-Apr-2021 Active2 ml ondansetron 2 mg/ml injection (12 sources)Serotonin-3 Receptor AntagonistStart: 11-29-2022 End: 20-06-7145jlnb 4 mg intravenously every six hours as needed for nausea and vomitingondansetron (Zofran) injection 4 mgStart: 86-81-2576fmtt 1 tablet by mouth every six hours as needed for nauseaZofran 4 mg Tab 1 tab(s), Oral, q6hr, PRN Nausea, # 8, Refills(s) 0 Start Date: 07/14/22 Status: Ordered Quantity: 8.0 Unit: Repeat number: 1Start: 35-55-1342fclg 1 tablet by mouth three times daily Zofran 4 MG 1 tablet Orally THREE TIMES A DAY for 30 day(s) May, Not-Takingondansetron ODT (Zofran-ODT) disintegrating tablet 4 mg (2 sources)Start: 11-30-2022 End: 02-80-6163rivx 1 tablet by mouth every eight hours [...] for 1 hour. Then discontinue.Start: 11-29-2022 End: 72-66-7534alwzrtre (Pitocin) 30 units in 500 mL infusionStart: 11-29-2022 End: 14-33-0021dushsijy (Pitocin) 30 units in 500 mL infusionphenazopyridine hydrochloride 200 mg oral tablet (10 sources)Start: 70-88-0978jweq 1 tablet by mouth three times dailyPyridium 200 mg Tab 200 mg = 1 tab(s), Oral, TID, Take one tab by mouth three times a day for threedays, # 9 tab(s), Refills(s) 0, Pharmacy: [facility] 858, 157, cm, 03/04/21 7:22:00 EDT, Height/Length Dosing, 52, kg, 03/04/21 7:22:00 EDT, Weight Dosing Start Date: 03/04/21 Status: Ordered Quantity: 9.0 Unit: tab(s) Repeat number: 1predniSONE 10 mg oral tablet (3 sources)Start: 09-10-2023 End: 77-17-5924oizf 2 tablets by mouth twice daily, then [...] 09/10/2023 01/10/2024 Discontinued (Therapy completed)Start: 03-12-2019 End: 93-63-0916lvte 3 tablets by mouth once daily at mealtimePrednisone 20 mg tablet Discontinued 60 MG PO Daily 9 March 12, 2019 12:00am August 04, 2019 8:18am administer with food or milkpromethazine hydrochloride 12.5 mg oral tablet (13 sources)PhenothiazineStart: 05-25-2025 End: 36-22-2386haug 1 tablet by mouth every six hours [...] nausea. 30 tablet 2 508/ Discontinued End: 17-18-7619yifo 12.5 mg rectal route every six hours as needed for nausea and vomitingpromethazine (PHENERGAN) 12.5 mg suppository Insert 1 suppository (12.5 mg total) into the rectum every 6 (six) hours as needed for nausea or vomiting. 09/04/2025 Discontinued ()rizatriptan 5 mg disintegrating oral tablet (5 sources)Serotonin-1b and Serotonin-1d Receptor AgonistStart: 10-24-2018 End: 27-71-4808pywhgyktsak LADLE PATCHER (MAXALT-LADLE PATCHER) 5 mg disintegrating tablet Dissolve 1 tablet (5 mg total) on tongue asneeded. 0 10/24/2018 09/04/2025 Discontinued ()5 ml sodium chloride 9 mg/ml injection (2 sources)Start: 11-28-2022 End: mL, IntraVENous, Every 12 hours scheduled (2 times per day), First dose on Sun11/28/22 at 0900, Pre-Deliveryvitamin b12 1 mg extended release oral tablet (5 sources)Vitamin R63Ekqnk: 10-25-2018 End: 52-82-5022wkvl 1 tablet by mouth in the morningcyanocobalamin, vitamin B- 12, (VITAMIN B-12) 1,000 mcg tablet extended release Take 1 tablet (1 mg total) by mouth in the morning. 0 10/25/2018 09/04/2025 Discontinued ()witch yesi 500 mg/ml medicated pad (2 sources)Start: 11-30-2022 End: 83-90-2522Cscnxwm, As needed, hemorrhoids, For perineal pain or discomfort, Starting on Sun11/30/22 at 0608, Apply to perineal area. Patient is capable and may self administer at bedside. Problems Active Problems Problem ClassificationProblemDateDocumented DateEpisodic/ChronicAllergic reactions (1 source)Allergic reaction; Translations: [Allergy, unspecified, initial encounter]36-22-8122JwqmelhtOprdkkm on above:Problem List clean-up per request of Phys. EHR CmteAnxiety disorders (20 sources)Anxiety; Translations: [Anxiety state, unspecified]Onset: 10-08-2020 32-27-9674CqlbujhHdfeehg on above:Problem List clean-up per request of Phys. EHR CmteCardiac dysrhythmias (20 sources)Paroxysmal tachycardia; Translations: [Paroxysmal tachycardia, unspecified]Onset: 452186-22-8303HzxhzidMefnrqvyvzgst of surgical procedures or medical care (1 source)Postoperative retention of urine; Translations: [Other postprocedural complications and disorders of genitourinary system]87-57-3599LsjpzkrgFrqefdh on above:Problem List clean-up per request of Phys. EHR CmteDiabetes mellitus without complication (2 sources)Abnormal glucose tolerance test; Translations: [Other abnormal glucose]60-39-3769HzrxtmrnNiyetnet or abnormal glucose tolerance complicating ; childbirth; or the puerperium (20 sources)Gestational diabetes mellitus; Translations: [Gestational diabetes mellitus in , diet controlled]Onset: 752011-05-2285Dlksusdm Endometriosis (20 sources)Endometriosis (clinical); Translations: [Endometriosis, site unspecified]Onset: 23-36-7323SoztwtiEhfejmtwn hypertension (20 sources)Hypertensive disorder; Translations: [Essential (primary) hypertension]Onset: 207727-48-2319FvqarcvHetnxtpgaheox symptoms and ill- defined conditions (20 sources)Microscopic hematuria; Translations: [Nocturia]55-10-4958Yfijucii Comment on above:Problem List clean-up per request of Phys. EHR CmteHeadache; including migraine (20 sources)Migraine; Translations: [Migraine, unspecified, not intractable, without status migrainosus]Onset: 062395-35-0851TqkssduFvpoakd on above: Problem List clean-up per request of Phys. EHR CmteHeadache; including migraine (14 sources)Headache; Translations: [Headache, unspecified]Onset: 01-31-2023 63-82-0080LqynqqwlVhjnjwazbca (1 source)Hemorrhoids; Translations: [Unspecified hemorrhoids]Onset: 07-14-2022 EpisodicHypertension complicating ; childbirth and the puerperium (20 sources)Hypertension complicating ; Translations: [Unspecified maternal hypertension, unspecified trimester]Onset: hronic Hypertension complicating ; childbirth and the puerperium (16 sources)Severe pre-eclampsia complicating childbirth; Translations: [Severe pre-eclampsia, third trimester]Onset: 13-16-0257QwypwmxuMaozi disorders and dislocations; trauma-related (20 sources)Disorder of left patellofemoral joint; Translations: [Patellofemoral disorders, left knee]Onset: 615858-82-0452ZkizlesEzedg disorders and dislocations; trauma-related (20 sources)Disorder of right patellofemoral joint; Translations: [Patellofemoral disorders, right knee]Onset: hronic Menstrual disorders (20 sources)Dysmenorrhea; Translations: [Dysmenorrhea, unspecified]Onset: 617583-29-5541DkjmhoxIzgfxn and vomiting (1 source)Nausea and vomiting; Translations: [Nausea with vomiting, unspecified] EpisodicNonspecific chest pain (2 sources)Chest pain; Translations: [Chest pain, unspecified]30-41-1232Cgfkykzo Comment on above:Problem List clean-up per request of Phys. MIKAYLA CmteNutritional deficiencies (20 sources)Vitamin D deficiency; Translations: [Vitamin D deficiency, unspecified]Onset: 513283-90-5624VgqabxbUxmgv acquired deformities (20 sources)Scoliosis deformity of spine; Translations: [Scoliosis, unspecified] Onset: 409440-40-4149PmrbiptOqyzg bone disease and musculoskeletal deformities (10 sources)Disorder of vvot23-08-7189UcpbtezpQavkfjt on above:right shoulder right shoulderOther circulatory disease (1 source)Elevated blood-pressure reading without diagnosis of hypertension; Translations: [Elevated blood-pressure reading, without diagnosis of hypertension]Onset: 46-93-8173IbfiosnaKlgmo complications of ; puerperium affecting management of mother (1 source)Delayed AND/OR secondary hemorrhage; Translations: [Delayed and secondary hemorrhage]Onset: 11-37-5353AvvtqzxgSnixn complications of (1 source)Finding related to ; Translations: [Other specified related conditions, unspecified trimester]Onset: 38-76-9076NfepzntfBvznd complications of (1 source)Supervision of with other poor reproductive or obstetric history, unspecified trimester; Translations: [Supervision of with other poor reproductive or obstetric history, unspecified trimester]Onset: 01-96-0449FouvhweaLkgbs connective tissue disease (1 source)Diastasis recti; Translations: [Separation of muscle (nontraumatic), other site]EpisodicOther female genital disorders (10 sources)Abnormal uterine uxrtisfy68-72-8133ArffadaHcvwp female genital disorders (1 source)Dyspareunia; Translations: [Other specified dyspareunia]ChronicOther female genital disorders (20 sources)Pain in female genitalia on intercourse; Translations: [Unspecified dyspareunia]Onset: 352994-27-2028EqtydsePmkbc female genital disorders (1 source)Unspecified dyspareunia; Translations: [Unspecified dyspareunia]Onset: 22-80-4051SuuuivgPjddo female genital disorders (2 sources)Pelvic floor dysfunction; Translations: [Other specified conditions associated with female genital organs and menstrual cycle]EpisodicOther gastrointestinal disorders (18 sources)Constipation; Translations: [Constipation, unspecified]Onset: 257486-61-6638KyksufyfXuwqgxx on above:Problem List clean-up per request of Phys. EHR CmteOther gastrointestinal disorders (1 source)Constipation, unspecified; Translations: [Constipation, unspecified] Onset: 53-66-0378MtfwbdykFnvae hereditary and degenerative nervous system conditions (20 sources)Finding of scapular structure; Translations: [Other specified extrapyramidal and movement disorders]Onset: 175344-51-2506HxoircfWsvhf nervous system disorders (9 sources)Chronic pain; Translations: [Other chronic pain]Onset: 03-29-2023 12-69-9132EqmymddNtkyh nervous system disorders (1 source)Other chronic pain; Translations: [Chronic pelvic pain in female] Onset: 85-71-7150UlsheftDcjex nervous system disorders (1 source)Paresthesia of left upper limb; Translations: [Paresthesia of skin] 13-99-6614AolaedzqYcjqwzp on above:Problem List clean-up per request of Phys. EHR CmteOther nervous system disorders (1 source)Tremor; Translations: [Tremor, unspecified]15-18-5725EwfrdwapTtbxfwo on above:Problem List clean-up per request of Phys. EHR CmteOther nutritional; endocrine; and metabolic disorders (20 sources)Body mass index 30+ - obesity; Translations: [Obesity, unspecified] Onset: 012650-61-1877WgwbsjaBrqkd and delivery including normal (18 sources); Translations: [Encounter for supervision of normal , unspecified, unspecified trimester]24-32-4997KblxirywBnuqy screening for suspected conditions (not mental disorders or infectious disease) (8 sources)Elevated liver enzymes level; Translations: [Other specified abnormal findings of blood chemistry]Onset: 04-18-2022 Resolved: 78-37-1081JkewexzvFsjym upper respiratory disease (20 sources)Allergic rhinitis due to pollen; Translations: [Allergic rhinitis due to pollen]Onset: 284615-95-8159TicuvmtYihen upper respiratory infections (2 sources)Sinusitis; Translations: [Chronic sinusitis, unspecified]06-22-2025 ChronicResidual codes; unclassified (2 sources)Contraception ; Translations: [Other specified health status] 89-12-4459QjelknipEcycuoua codes; unclassified (2 sources)Gestation period, 13 weeks; Translations: [13 weeks gestation of ]66-87-1122LgiackxtWfnkzjtk codes; unclassified (2 sources)Gestation period, 17 weeks; Translations: [17 weeks gestation of ]75-38-0614JhmbrmcmFqgawdbr codes; unclassified (2 sources)Gestation period, 20 weeks; Translations: [20 weeks gestation of ]38-85-2224KqbrssctVwcevuch codes; unclassified (2 sources)Gestation period, 24 weeks; Translations: [24 weeks gestation of ]33-12-4491TnhwpipfGwwnuoow codes; unclassified (2 sources)Gestation period, 26 weeks; Translations: [26 weeks gestation of ]41-27-8904NqsfvqnqIwuytqli codes; unclassified (2 sources)Gestation period, 27 weeks; Translations: [27 weeks gestation of ]34-15-7386KvnughknAhrcbhwy codes; unclassified (1 source)Gestation period, 28 weeks; Translations: [28 weeks gestation of ]57-45-9105MmxeqfxhBudrwpxb codes; unclassified (1 source)28 weeks gestation of ; Translations: [28 weeks gestation of ]Onset: 94-75-9666PitvfhamPmmoklla codes; unclassified (2 sources)Gestation period, 29 weeks; Translations: [29 weeks gestation of ]50-12-8085ZioyqxieOrxkkhdx codes; unclassified (2 sources)Gestation period, 31 weeks; Translations: [31 weeks gestation of ]56-07-2995HqtxbiesQaqnsggxubl; intervertebral disc disorders; other back problems (20 sources)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; Translations: [Other cervical disc displacement, unspecified cervical region] Onset: 151813-44-4241OjnqnboGvkmegumesqx (1 source)MFM consultOnset: 32-62-6334Vhfnfftrfvzt (1 source)Gestational DiabetesOnset: 68-57-7197Nqrthmd tract infections (20 sources)Recurrent urinary tract infection; Translations: [Urinary tract infection, site not specified]Onset: 462251-90-4380Pxnqbvfp Past or Other Problems Problem ClassificationProblemDateDocumented DateEpisodic/ChronicAbdominal pain (20 sources)Epigastric pain; Translations: [Epigastric pain]Onset: 07-14-2022 EpisodicAcquired foot deformities (20 sources)Acquired equinus deformity of foot; Translations: [Other acquired deformities of unspecified foot]Onset: 906419-53-1659DkpmcrllBxwgfmw dysrhythmias (20 sources)Tachycardia; Translations: [Tachycardia, unspecified]Onset: 771092-17-9151QskkseqnJwbfpmmoqaj deficiencies (20 sources)Cobalamin deficiency; Translations: [Deficiency of other specified B group vitamins]Onset: 570508-51-1531JzivrhhwFrepa connective tissue disease (20 sources)Posterior calcaneal exostosis; Translations: [Calcaneal spur, unspecified foot]Onset: 234136-10-1799RhlvwpggZigzz disorders of stomach and duodenum (20 sources)Gastroparesis syndrome; Translations: [Gastroparesis]Onset: 461184-19-4775VyxvzvwmSacev female genital disorders (1 source)Other specified conditions associated with female genital organs and menstrual cycle; Translations:[High-tone pelvic floor dysfunction]Onset: 17-37-9914GafusobbJeibq female genital disorders (20 sources)Chronic pelvic pain of female; Translations: [Chronic pelvic pain in female]Onset: 415228-84-5531LwkvwuuuSpdis gastrointestinal disorders (20 sources)Swallowing painful; Translations: [Dysphagia, unspecified]Onset: 254700-95-1321TeoaymnrEyilk gastrointestinal disorders (20 sources)Diarrhea; Translations: [Diarrhea, unspecified]Onset: 03-24-2025 49-71-6001DibteldgEkvsj non-traumatic joint disorders (20 sources)Chronic pain of right upper limb; Translations: [Pain in right shoulder]Onset: 067524-96-2623XzrluaznZqmxc nutritional; endocrine; and metabolic disorders (16 sources)Loss of appetite; Translations: [Anorexia]Onset: 05-27-2020 73-67-4535YmdzkbfhEzacddq (15 sources)Vasovagal syncope; Translations: [Syncope and collapse]Onset: 604187-65-7263GaqzgujzQkqprsatgbrb (9 sources)PregnancyOnset: 07-14-2022 Resolved: 016844-07-3933SSPYGRC: Highlighted row has been ruled out! Unclassified (1 source)No known active kcrpussi76-56-3751 Results Test NameValueInterpretationReference RangeFacilityUS OB BPP W NON-STRESS on 38-59-7813[place]wdLe[place] [address] Ultrasound Report Signed Patient: JUHI GAMA MR#: [id number] : 1995 Acct:[id number] Age/Sex: 30 / F ADM Date: 10/03/25 Loc: US Attending Dr: Steph Keane Ordering Physician: Steph Keane Date of Service: 10/03/25 Procedure(s): US OB BPP w non-stress Accession Number(s): [id number] cc: Steph Keane; KAFTAN,G KENNETH The [address] [address] Patient Name: JUHI GAMA MRN: [facility]:[id number] date: 1995 Sex: F Assigned Patient Location: US Current Patient Location: Accession/Order Number: [id number] Exam Date: 10/03/2025 10:53 Report Date: 10/03/2025 [...] Faria M.D. 10/03/2025 11:36 AM Dictation Location: [place] [address] Electronically authenticated by: [id number] Y Date: 10/03/2025 11:36 Dictated By: Will Faria M.D. Signed By: 10/03/25 1138 DD/ 1136 TD/TT: Conservation Educator:TBHRadiology, Radiologist, MD - 10/03/2025 [place] [address] Ultrasound Report Signed Patient: JUHI GAMA MR#: [id number] : 1995 Acct:[id number] Age/Sex: 30 / F ADM Date: 10/03/25 Loc: US Attending Dr: Steph Keane Ordering Physician: Steph Keane Date of Service: 10/03/25 Procedure(s): US OB BPP w non-stress Accession Number(s): [id number] cc: Steph Keane; Yomaira BELTRAN [place] [id number] Patient Name: JUHI GAMA MRN: [id number] date: 1995 Sex: F Assigned Patient Location: US Current Patient Location: Accession/Order Number: [id number] Exam Date: 10/03/2025 10:53 Report Date: 10/03/2025 [...] Faria M.D. 10/03/2025 11:36 AM Dictation Location: [place] [address] Electronically authenticated by: [id number] Y Date: 10/03/2025 11:36 Dictated By: Will Faria M.D. Signed By: 10/03/25 1138 DD/ 1136 TD/TT: Conservation Educator: [facility] HealthcareRadiology Study observation (narrative)[facility] HealthcareUS OB BPP W NON-STRESSOrdered By: Radiologist Radiology on 15-46-3812[facility] Work Phone: Urinalysis macro (dipstick) panel (U)on 09-30-2025 Bilirubin, UANegativeNegative - 4(70) +++ mg/dLNOMS HealthcareBlood, UANegative Negative - 50 Teodoro/mcLNOMS HealthcareClarity, UAClearNOMS HealthcareColor, UA YellowNOTN HealthcareGlucose, UANegativeNegative - 2000(110) ++++ mg/dLNOTN HealthcareInterpretation and review of laboratory resultsNormalNOUniversity Hospital Ketones, UANegativeNegative - 160(16) ++++ mg/dLNOTN HealthcareLeukocytes, UA NegativeNegative - 500+++ Robinson/mcLNOTN HealthcareNitrite, UANegativeNegative - PositiveNOTN HealthcarepH, UA6.05 - 9NOTN HealthcareProtein, UANegativeNegative - 2000(20) ++++ mg/dLNOTN HealthcareSpec Grav, UA1.0101 - 1.03NOTN Healthcare Urobilinogen, UA1.00.2 - 12 mg/dLNOMetropolitan Saint Louis Psychiatric Center HealthcareUS OB BPP W NON-STRESSon 90-52-1244IfgLees[place] [address] Ultrasound Report Signed Patient: JUHI GAMA MR#: [id number] : 1995 Acct:[id number] Age/Sex: 30 / F ADM Date: 09/26/25 Loc: US Attending Dr: Steph Keane Ordering Physician: Steph Keane Date of Service: 09/26/25 Procedure(s): US OB BPP w non-stress Accession Number(s): [id number] cc: Steph Keane; Yomaira BELTRAN [place] [id number] Patient Name: JUHI GAMA MRN: [id number] date: 1995 Sex: F Assigned Patient Location: Current Patient Location: Accession/Order Number: [id number] Exam Date: 09/26/2025 11:50 Report Date: 09/26/2025 14:50 At the request of: STEPH KEANE Procedure: US OB BPP w non-stress Ultrasound biophysical profile INDICATION: -induced hypertension COMPARISON: 09/19/2025 FINDINGS IMPRESSION: Cephalic position. 8 out of 8 score biophysical profile. LEONEL 11.6 cm. heart 129 bpm Impression dictated by: Chu Amaya M.D. 09/26/2025 2:50 PM Dictation Location: [facility]-29 Electronically authenticated by: [id number] Y Date: 09/26/2025 14:50 Dictated By: Chu Amaya M.D. Signed By: 09/26/25 1452 DD/ 49 TD/TT: Conservation Educator:TBHRadiology, Radiologist, - 09/26/2025 [place] [address] Ultrasound Report Signed Patient: JUHI GAMA MR#: [id number] : 1995 Acct:[id number] Age/Sex: 30 / F ADM Date: 09/26/25 Loc: US Attending Dr: Steph Keane Ordering Physician: Steph Keane Date of Service: 09/26/25 Procedure(s): US OB BPP w non-stress Accession Number(s): [id number] cc: Le Keane G ROBERT [place] [address] Patient Name: JUHI GAMA MRN: [facility]:[id number] date: 1995 Sex: F Assigned Patient Location: Current Patient Location: Accession/Order Number: [id number] Exam Date: 09/26/2025 11:50 Report Date: 09/26/2025 14:50 At the request of: STEPH KEANE Procedure: US OB BPP w non-stress Ultrasound biophysical profile INDICATION: -induced hypertension COMPARISON: 09/19/2025 FINDINGS IMPRESSION: Cephalic position. 8 out of 8 score biophysical profile. LEONEL 11.6 cm. heart 129 bpm Impression dictated by: Chu Amaya M.D. 09/26/2025 2:50 PM Dictation Location: RADIO-PC-29 Electronically authenticated by: [id number] Y Date: 09/26/2025 14:50 Dictated By: Chu Amaya M.D. Signed By: 09/26/25 145 DD/ 145 TD/TT: Conservation Educator: LANETTE HealthcareRadiology Study observation (narrative)NOMS HealthcareUS OB BPP W NON-STRESSOrdered By: Radiologist Radiology on 38-08-5657[facility] Work Phone: US OB BPP W NON-STRESSon [id number] [address] Ultrasound Report Signed Patient: JUHI GAMA MR#: [id number] : 1995 Acct:[id number] Age/Sex: 30 / F ADM Date: 09/19/25 Loc: US Attending Dr: Steph Keane Ordering Physician: Steph Keane Date of Service: 09/19/25 Procedure(s): US OB BPP w non-stress Accession Number(s): [id number] cc: Steph Keane; Yomaira BELTRAN [place] [phone] Patient Name: JUHI GAMA MRN: [facility]:[id number] date: 1995 Sex: F Assigned Patient Location: [facility] Current Patient Location: Accession/Order Number: [id number] Exam Date: 09/19/2025 10:06 Report Date: 09/19/2025 [...] Morillo M.D. 09/19/2025 12:17 PM Dictation Location: [facility] Electronically authenticated by: [id number] Y Date: 09/19/2025 12:17 Dictated By: Jp Morillo D.O. Signed By: 09/19/25 1219 DD/ 16 TD/TT: Conservation Educator:SATNAMadiolRandell malagon, - 09/19/2025 [facility] [place] [id number] Ultrasound Report Signed Patient: JUHI GAMA MR#: [id number] : 1995 Acct:[id number] Age/Sex: 30 / F ADM Date: 09/19/25 Loc: US Attending Dr: Steph Keane Ordering Physician: Steph Keane Date of Service: 09/19/25 Procedure(s): US OB BPP w non-stress Accession Number(s): [id number] cc: Steph Keane; Yomaira BELTRAN The [place] [id number] Patient Name: JUHI GAMA MRN: [facility]:[id number] date: 1995 Sex: F Assigned Patient Location: [facility] Current Patient Location: Accession/Order Number: [id number] Exam Date: 09/19/2025 10:06 Report Date: 09/19/2025 [...] Morillo M.D. 09/19/2025 12:17 PM Dictation Location: [facility] Electronically authenticated by: [id number] Y Date: 09/19/2025 12:17 Dictated By: Jp Morillo D.O. Signed By: 09/19/25 1219 DD/ 16 TD/TT: Conservation Educator: LANETTE HealthcareRadiology Study observation (narrative)NOMS HealthcareUS OB BPP W NON-STRESSOrdered By: Radiologist Radiology on 95-09-0388RFOUReynolds County General Memorial Hospital Work Phone: Urinalysis macro (dipstick) panel (U)on 09-16-2025 Bilirubin, UANegativeNegative - 4(70) +++ mg/dLReynolds County General Memorial HospitalBlood, UANegative Negative - 50 Teodoro/mcLReynolds County General Memorial HospitalClarity, UAClearNOTN HealthcareColor, UA YellowNOUniversity HospitalGlucose, UANegativeNegative - 2000(110) ++++ mg/dLReynolds County General Memorial HospitalInterpretation and review of laboratory resultsNormalReynolds County General Memorial Hospital Ketones, UANegativeNegative - 160(16) ++++ mg/dLReynolds County General Memorial HospitalLeukocytes, UA NegativeNegative - 500+++ Robinson/[facility]aufort Memorial HospitalNitrite, UANegativeNegative - PositiveMOAB REGIONAL HOSPITAL HealthcarepH, UA6.05 - 9NOTN HealthcareProtein, UANegativeNegative - 2000(20) ++++ mg/dLReynolds County General Memorial HospitalSpec Grav, UA1.0101 - 1.03[facility] Urobilinogen, UA1.00.2 - 12 mg/dLMercy Hospital Joplin HealthcareALL BUNon 22-85-7110Qars nitrogen [Mass/Vol]8 mg/dL7.0 - 18.0 mg/dLBates County Memorial Hospital URIC ACIDon 36-67-9659Otorl [Mass/Vol]3.5 mg/dL2.6 - 6.0 mg/dLReynolds County General Memorial HospitalCC ALT on 39-10-6836NAE [Catalytic activity/Vol]40 U/L14 - 59 U/[facility] HospitalCCF AST on 86-72-3300FSI [Catalytic activity/Vol]24 U/L15 - 37 U/[facility] HospitalNo Panel Informationon 27-75-7945Alfashtlutjgnf and review of laboratory results AbnormalNOUniversity HospitalCLINISYNCNSaint Louis University Health Science CenterTB CREATININEon 09-03-2025 Creatinine [Mass/Vol]0.42 mg/dLLow0.55 - 1.02 mg/dLReynolds County General Memorial HospitalGFR/1.73 sq M.predicted CKD-EPI (S/P/Bld) [Vol rate/Area]>60>=60 mL/min/1.73m 2NSaint Louis University Health Science CenterTB EGFR-NON AF SPANISH>60>=60 mL/min/1.73m 2NOMS HealthcareTB URINE T PROTEIN CREAT RATIOon 86-65-5753RKCYKUCSXS URINE RANDOM<13.70Oeb54.00 - 300.00 mg/dLNOTN HealthcareTOTAL PROTEIN URINE RANDOM<6.0NINF - 11.9 mg/dLMOAB REGIONAL HOSPITAL HealthcareUrinalysis macro (dipstick) panel (U)on 57-79-6401Svakitvpo, UA NegativeNegative - 4(70) +++ mg/dLMOAB REGIONAL HOSPITAL HealthcareBlood, UANegativeNegative - 50 Teodoro/mcLMOAB REGIONAL HOSPITAL HealthcareClarity, UAClearNOTN HealthcareColor, UAYellowNOTN HealthcareGlucose, UANegativeNegative - 2000(110) ++++ mg/dLMOAB REGIONAL [facility] Healthcare Interpretation and review of laboratory resultsNormalMOAB REGIONAL [facility]OSPITAL HealthcareKetones, UA NegativeNegative - 160(16) ++++ mg/dLMOAB REGIONAL [facility]OS[facility]ITAL HealthcareLeukocytes, UANegative Negative - 500+++ Robinson/Beaufort Memorial HospitalNitrite, UANegativeNegative - Positive NOM HealthcarepH, UA6.55 - 9NOTN HealthcareProtein, UANegativeNegative - 2000(20) ++++ mg/dLMOAB REGIONAL HOSPITAL HealthcareSpec Grav, UA1.0051 - 1.03NOTN Healthcare Urobilinogen, UA2.00.2 - 12 mg/dLCentral Carolina HospitalTB TOTAL PROTEIN 24 HOUR URINEon 44-12-3881Wouuqiaubmhzbu and review of laboratory results AbnormalNOTN HealthcareProtein (U) [Mass/Vol]22.6 mg/dLHighNINF - 11.9 mg/dLReynolds County General Memorial HospitalTB TOTAL PROTEIN 24 HOUR UWYGC201.6NINFNOUniversity HospitalTOTAL VOLUME 24 HOUR YSECY626wT/24hrNOTN HealthcareCLINISYNCNMERCY HOSPITAL TISHOMINGO – TISHOMINGO HealthcareALL CBC WITH AUTO DIFFon 63-23-0450NIJTCGBOS ABSOLUTE AUTO0.1NOMS HealthcareBasophils/100 WBC (Bld)0.5 %0.2 - 2.0 %NOMS HealthcareEosinophils/100 WBC (Bld)1.4 %0.9 - 7.0 % [facility] HealthcareErythrocyte distribution width (RBC) [Ratio]13 %11.0 - 15.0 %[facility] HealthcareHematocrit (Bld) [Volume fraction]34.4 %Low36.0 - 48.0 %[facility] Memorial HospitalHemoglobin (Bld) [Mass/Vol]11.3 g/dLLow12.0 - 16.0 g/dLReynolds County General Memorial Hospital IMMATURE GRANULOCYTES ABS AUTO0.59HighNOTN HealthcareImmature granulocytes/100 WBC (Bld)4.4 %High0.0 - 0.5 %[facility] HospitalInterpretation and review of laboratory resultsAbnormalNOTN HealthcareLYMPHOCYTES ABSOLUTE AUTO2.4NOTN HealthcareLymphocytes/100 WBC (Bld)17.8 %Low20.5 - 60.0 %Research Psychiatric CenterH (RBC) [Entitic mass]29.4 pg26.7 - 34.0 pgNOPemiscot Memorial Health SystemsHC (RBC) [Mass/Vol] 32.8 g/dL29.9 - 35.2 g/dLReynolds County General Memorial HospitalMCV (RBC) [Entitic vol]89.4 fL81.0 - 99.0 fLReynolds County General Memorial HospitalMONOCYTES ABSOLUTE AUTO1.1HighNOTN HealthcareMonocytes/100 WBC (Bld)8.1 %1.7 - 12.0 %[facility] HospitalNEUTROPHILS ABSOLUTE NCXN1DhrtOJWY HealthcareNeutrophils/100 WBC (Bld)67.8 %43.0 - 75.0 %[facility] HospitalPlatelet mean volume (Bld) [Entitic vol]9.6 fL9.5 - 13.5 fLReynolds County General Memorial HospitalTBH EO #0.2NOMS [facility] CenterTB YSY111NORI [facility] RBC3.85LowNOMS [facility] WBC13.3High [facility] HospitalCLINISYNPrisma Health Richland HospitalTB URINE T PROTEIN CREAT RATIOon 52-19-1966NFVWOPJEWA URINE RANDOM<13.03Zsh63.00 - 300.00 mg/dLReynolds County General Memorial Hospital Interpretation and review of laboratory resultsAbnormalReynolds County General Memorial HospitalTOTAL PROTEIN URINE RANDOM<6.0NINF - 11.9 mg/dLReynolds County General Memorial HospitalCLINISYNPrisma Health Richland Hospital US OB BPP W NON-STRESSon 77-94-1235[address] [address] Ultrasound Report Signed Patient: JUHI GAMA MR#: [id number] : 1995 Acct:[id number] Age/Sex: 30 / F ADM Date: Loc: [facility] 250-[address]: KUNAL HYATT M.D. Ordering Physician: Steph Keane Date of Service: 08/27/25 Procedure(s): US OB BPP w non-stress Accession Number(s): [id number] cc: Steph Keane; Yomaira BELTRAN [place] [address] Patient Name: JUHI GAMA MRN: [facility]:[id number] date: 1995 Sex: F Assigned Patient Location: LAB Current Patient Location: LAB Accession/Order Number: [id number] Exam Date: 08/27/2025 17:37 Report Date: 08/27/2025 [...] Morillo M.D. 08/27/2025 6:02 PM Dictation Location: [place] [address] Electronically authenticated by: [id number] Y Date: 08/27/2025 18:02 Dictated By: Jp Morillo D.O. Signed By: 08/27/251804 DD/ 01 TD/TT: Conservation Educator:SATNAMadiology, Radiologist, MD - 08/27/2025 [place] [address] Ultrasound Report Signed Patient: JUHI GAMA MR#: [id number] : 1995 Acct:[id number] Age/Sex: 30 / F ADM Date: Loc: [facility] 250-[address]: KUNAL HYATT M.D. Ordering Physician: Steph Keane Date of Service: 08/27/25 Procedure(s): US OB BPP w non-stress Accession Number(s): [id number] cc: Steph Keane; Yomaira BELTRAN [place] [phone] Patient Name: JUHI GAMA MRN: [facility]:[id number] date: 1995 Sex: F Assigned Patient Location: LAB Current Patient Location: LAB Accession/Order Number: [id number] Exam Date: 08/27/2025 17:37 Report Date: 08/27/2025 [...] Morillo M.D. 08/27/2025 6:02 PM Dictation Location: [place] [address] Electronically authenticated by: [id number] Y Date: 08/27/2025 18:02 Dictated By: Jp Morillo D.O. Signed By: 08/27/251804 DD/ 01 TD/TT: Conservation Educator: LANETTE HealthcareRadiology Study observation (narrative)NOMShalonda SmallUS OB BPP W NON-STRESSOrdered By: Radiologist Radiology on 83-44-5512ZZBC Healthcare Work Phone: Urinalysis macro (dipstick) panel (U)on 08-27-2025 Bilirubin, UANegativeNegative - 4(70) +++ mg/dLNOMS HealthcareBlood, UANegative Negative - 50 Teodoro/mcLNOMS HealthcareClarity, UAClearNOMS HealthcareColor, UA YellowNOMS HealthcareGlucose, UANegativeNegative - 2000(110) ++++ mg/dLNOMS HealthcareInterpretation and review of laboratory resultsNormalReynolds County General Memorial Hospital Ketones, UANegativeNegative - 160(16) ++++ mg/dLMOAB REGIONAL [facility]ITAL HealthcareLeukocytes, UA NegativeNegative - 500+++ Robinson/mcLNOTN HealthcareNitrite, UANegativeNegative - PositiveNOTN HealthcarepH, UA65 - 9NOTN HealthcareProtein, UANegativeNegative - 2000(20) ++++ mg/dLMOAB REGIONAL [facility]ITAL HealthcareSpec Grav, UA1.0151 - 1.03NOTN Healthcare Urobilinogen, UA2.00.2 - 12 mg/dLNOTN HealthcareNOTN HealthcareURINE CULTURE, ROUTINEon 53-39-3654Kxntngwa identified Cx Nom (U) Urine Culture, Routine NOMS HealthcareBacteria identified Cx Nom (U)Mixed urogenital floraNOTN HealthcareBacteria identified Cx Nom (U)25,000-50,000 colony forming units per mLNOMS HealthcareBacteria identified Cx Nom (U)Performed at: - [facility] NOMS HealthcareBacteria identified Cx Nom (U)[address] [place] [address] [id number] HealthcareBacteria identified Cx Nom (U)Buckle Strap Drum Operator: Cm Sandoval PhD, Phone: [phone] HealthcareCLINISYNWALDEN BEHAVIORAL CARE Hcaraqbrau4wp hr Glucose Tolerance 100 gm loadon 11-71-8357Itnxgmg Tolerance Test 2 Zmsm738 [facility] Clinic FoundationCapillary Glucose POCon 25-87-7461Xinpsqb [Mass/Vol]88 mg/eDThjkuz89-40BptrmlFairfield Medical CenterComment on above:Performed By: #### [id number] #### Rivera [facility] [address] [place], [place] [address]Czh 1 Hron 01-43-7183Xcvpcrl [Mass/Vol]152 mg/zGFvwcqw08-373 [facility] CenterComment on above:Performed By: #### [id number] #### [facility] [address] [place], [place] [address]Efl 2 Hron 36-41-6217Kzsblfl [Mass/Vol]169 mg/kERojb44-577 [facility] CenterComment on above:Performed By: #### [id number] #### Rivera [facility] [address], [place] [address]Bpu 3 Hron 56-33-2315Ggleqmf [Mass/Vol]141 mg/aAQqxv10-355 [facility] CenterComment on above:Performed By: #### [id number] #### [facility] [address] [place], [place] [address]Yra Fastingon 80-31-8437Hjckors [Mass/Vol]82 mg/lWWzjmdy16-96 [facility] CenterComment on above:Performed By: #### [id number] #### [facility] [address], [place] [address]Znvjqzt tolerance, 1 houron 31-61-8474Peebtlb Tolerance Test 1 Lxeq450ZpmSaduaa Health SystemGlucose tolerance, 3 hourson 10-71-7477Tlwsrhk Tolerance Test 3 Igdz834XtuUwxldk Health SystemGlucose, tolerance fastingon 32-21-4862Arihezq Tolerance Test Potcuao55DwfTyhuen Health SystemNo Panel Informationon 56-84-6245GauLonzbvCleveland Clinic FoundationCBC w/ Auto Diffon 08-12-2025 Basophil Absolute0.1 E9/LNormal0.0-0.2Fisher [facility] CenterComment on above:Performed By: #### [id number] #### [facility] [address] [place] [address]Ygcwptfza/100 WBC (Bld)0.6 %Normal0.0-2.0[facility] Medical CenterComment on above:Performed By: #### [id number] #### [facility] [address], [place] [address]Hen Absolute0.1 E9/LNormal0.0-0.5Fisher [facility] Comment on above:Performed By: #### [id number] #### [facility] [address] [place] [address]Xdjzcsxblag/100 WBC (Bld)1.0 %Normal0.0-8.0[facility] Medical CenterComment on above:Performed By: #### [id number] #### [facility] [address] [place], [place] [address]Suvjhmleuhe distribution width (RBC) [Ratio]12.9 %Normal 10.9-14.2FZanesville City HospitalComment on above:Performed By: #### [id number] #### [facility] [address] [place], [place] [address]Ksnusnvazn (Bld) [Volume fraction]33.1 %Low34.0-46.0[facility] Medical CenterComment on above:Performed By: #### [id number] #### [facility] [address], [place] [address]Uljjlkfsst (Bld) [Mass/Vol]11.4 g/dLLow12.0-16.0[facility] Medical CenterComment on above:Performed By: #### [id number] #### [facility] [address] [place] [address]Xpvfv Absolute2.0 E9/LNormal1.0-4.0[facility] Comment on above:Performed By: #### 5458745 #### [facility] [address] [place], [place] [address]Xnxnnymtycc/100 WBC (Bld)19.6 %Tnsado97.0-50.0[facility] Medical CenterComment on above:Performed By: #### 8718792 #### [facility] [address], [place] [address]NOW (RBC) [Entitic mass]29.9 opVfzmtd20.0-34.0[facility] Medical CenterComment on above:Performed By: #### [id number] #### [facility] [address], [place] [address]EXYG (RBC) [Mass/Vol]34.4 g/iOQreybq66.4-36.0[facility] CenterComment on above:Performed By: #### [id number] #### [facility] [address], [place] [address]HKU (RBC) [Entitic vol]86.7 qJHolxqv31.0-100.0[facility] Medical CenterComment on above:Performed By: #### [id number] #### [facility] [address], [place] [address]Cwsh Absolute0.5 E9/LNormal0.2-1.0[facility] Comment on above:Performed By: #### [id number] #### [facility] [address] [place], [place] [address]Rheerzqqm/100 WBC (Bld)4.6 %Normal4.0-14.0[facility] Medical CenterComment on above:Performed By: #### [id number] #### [facility] [address], [place] [address]Sccnjm Absolute7.5 E9/LNormal2.0-7.5FZanesville City Hospital Comment on above:Performed By: #### [id number] #### [facility] [address] [place] [address]Fnnhjh Auto74.2 %Fkvubo64.0-75.0[facility] Comment on above:Performed By: #### [id number] #### [facility] [address] [place] [address]Fvodahxm848.0 E9/CBkpobu779.0-500.0[facility] Comment on above:Performed By: #### [id number] #### [facility] [address] [place] [address]Ttnejyjq mean volume (Bld) [Entitic vol]8.1 fLNormal6.4-10.8 [facility] CenterComment on above:Performed By: #### [id number] #### [facility] [address], [place] [address]UFC3.8 E12/LLow4.3-5.9[facility] Medical CenterComment on above:Performed By: #### [id number] #### [facility] [address] [place] [address]ZMR76.1 E9/LNormal4.0-11.0[facility] CenterComment on above:Performed By: #### [id number] #### Miguel [facility] [address] [place], [place] [address]Dgglahuiyy 81-83-3315Pewgixou Lvl7 ng/nCPqz20-194FluopeFairfield Medical CenterComment on above:Performed By: #### 2548157 #### Miguel [facility] [address], [place] [address]Tpuvabkg 61-24-9145Srrbtk Lvl>22.3Normal>=6.7FZanesville City HospitalComment on above:Performed By: #### [id number] #### Rivera [facility] [address] [place], [place] [address]Qkot Scr Glu 1 Hron 45-60-0277Hrvbmth [Mass/Vol]155 mg/dLHigh 55-140[facility] Medical CenterComment on above:Performed By: #### [id number] #### Miguel [facility] [address] [place] [address]Uaxtpgz 1h post 50g loadon 48-69-7704Rxtliqu, 1 hr PP 50GM dose 155ProMedica Health SystemIronon 63-78-9694Fjbv06 microgram/uMBrhcwg53-842WilvzwFairfield Medical CenterComment on above:Performed By: #### [id number] #### Miguel [facility] [address], [place] [address]Hg Panel Informationon 19-07-8504LBLP HealthcareTIBC Calculated on 60-01-6489HADS657 microgram/xUZuvm481-587FvrvqmFairfield Medical CenterComment on above:Performed By: #### [id number] #### Rivera [facility] [address] [place], [place] [address]Phskhypoyiq [Mass/Vol]455 mg/wEOzsk716-216NfzuikFairfield Medical CenterComment on above:Performed By: #### [id number] #### Miguel [facility] [address] [place], [place] [address]PR OB LIMITED 1+ FETUSESon 36-75-9648LS OB LIMITED 1+ FETUSES FINDINGS: Single viable [...] Delivery: 11/28/25 Gestational Age as of 07/21/2025: 88z9zDrbiesnkbk macro (dipstick) panel (U)on 75-22-7541Ifzqowgxj, UANegativeNegative - 4(70) +++ mg/dLNOMS HealthcareBlood, UANegativeNegative [...] HealthcareUrobilinogen, UA1.00.2 - 12 mg/dLNOMS HealthcareVit B12on 65-55-6066Wddqoyvua (Vitamin B12) [Mass/Vol]205 pg/gFIsnbjs75-0770Ohxlnc [facility] CenterComment on above:Performed By: #### [id number] #### Miguel [facility] [address] [place], [place] [address]MRB w/ Auto Diffon 48-68-9804Xemtezsf Absolute0.0 E9/LNormal 0.0-0.2Fisher [facility] CenterComment on above:Performed By: #### [id number] #### Miguel [facility] [address] [place], [place] [address]Lbhhsegjq/100 WBC (Bld)0.2 %Normal0.0-2.0[facility] Medical CenterComment on above:Performed By: #### [id number] #### [facility] [address] [place] [address]Fuq Absolute0.1 E9/LNormal0.0-0.5FZanesville City Hospital Comment on above:Performed By: #### 5909935 #### [facility] [address], [place] [address]Xcpcskiptnx/100 WBC (Bld)0.5 %Normal0.0-8.0[facility] Medical CenterComment on above:Performed By: #### 7537609 #### [facility] [address] [place] [address]Nnkxdqaigfr distribution width (RBC) [Ratio]13.0 %Normal 10.9-14.2FZanesville City HospitalComment on above:Performed By: #### [id number] #### [facility] [address] [place] [address]Tfaxhllrzj (Bld) [Volume fraction]31.9 %Low34.0-46.0[facility] Medical CenterComment on above:Performed By: #### [id number] #### [facility] [address] [place] [address]Raeennnupt (Bld) [Mass/Vol]11.1 g/dLLow12.0-16.0[facility] Medical CenterComment on above:Performed By: #### 7255213 #### [facility] [address] [place] [address]Wmoqw Absolute2.1 E9/LNormal1.0-4.0[facility] Comment on above:Performed By: #### 5739172 #### [facility] [address], [place] [address]Lmflzzzzhgv/100 WBC (Bld)16.2 %Josool37.0-50.0[facility] Medical CenterComment on above:Performed By: #### 3778726 #### Rivera [facility] [address] [place], [place] [address]HNP (RBC) [Entitic mass]29.9 fmKjdvvd44.0-34.0[facility] CenterComment on above:Performed By: #### [id number] #### Rivera [facility] [address] [place] [address]FJNT (RBC) [Mass/Vol]34.8 g/lCNcucey79.4-36.0[facility] CenterComment on above:Performed By: #### [id number] #### [facility] [address] [place] [address]OLX (RBC) [Entitic vol]85.7 qDWuhyez76.0-100.0[facility] Medical CenterComment on above:Performed By: #### 1867140 #### [facility] [address] [place] [address]Jlhj Absolute0.9 E9/LNormal0.2-1.0[facility] Comment on above:Performed By: #### [id number] #### [facility] [address] [place] [address]Qkwovtbjl/100 WBC (Bld)7.0 %Normal4.0-14.0[facility] Medical CenterComment on above:Performed By: #### [id number] #### [facility] [address] [place] [address]Wouofe Absolute9.7 E9/LHigh2.0-7.5Fisher [facility] Comment on above:Performed By: #### [id number] #### [facility] [address] [place] [address]Trrpuv Auto76.1 %High36.0-75.0[facility] Comment on above:Performed By: #### [id number] #### [facility] [address] [place] [address]Kppznfev224.0 E9/RVnocxz856.0-500.0[facility] Comment on above:Performed By: #### [id number] #### Rievra [facility] [address] [place], [place] [address]Npciekix mean volume (Bld) [Entitic vol]8.0 fLNormal6.4-10.8 [facility] CenterComment on above:Performed By: #### [id number] #### [facility] [address] [place], [place] [address]BLW3.7 E12/LLow4.3-5.9[facility] Medical CenterComment on above:Performed By: #### [id number] #### [facility] [address], [place] [address]SHK86.8 E9/LHigh4.0-11.0[facility] Medical CenterComment on above:Performed By: #### 5491221 #### [facility] [address], [place] [address]YHDgv 48-19-1964DK1 [Moles/Vol]20 mmol/CEan73-61QrcbvzFairfield Medical CenterComment on above:Performed By: #### [id number] #### [facility] [address] [place], [place] [address]Wonfs gap [Moles/Vol]16 mmol/LNormal6-16[facility] Medical CenterComment on above:Performed By: #### [id number] #### [facility] [address] [place], [place] [address]Flkzdac [Mass/Vol]3.8 g/dLNormal3.3-5.0[facility] Medical CenterComment on above:Performed By: #### 4380084 #### [facility] [address] [place], [place] [address]Gpfbpid/Globulin [Mass ratio]1.3 {ratio}Normal1.1-2.2FZanesville City HospitalComment on above:Performed By: #### 9498568 #### [facility] [address] [place], [place] [address]Qqi Phos78 Int._Unit/LCjulht60-76VanwpqFairfield Medical Center Comment on above:Performed By: #### [id number] #### [facility] [address], [place] [address]WZH79 Int._Unit/LNormal6-46Fairfield Medical CenterComment on above:Performed By: #### [id number] #### [facility] [address] [place], [place] [address] Int._Unit/LNormal5-43[facility] Medical CenterComment on above:Performed By: #### [id number] #### [facility] [address], [place] [address]Xmsx Total0.8 mg/dLNormal0.0-1.1FZanesville City Hospital Comment on above:Performed By: #### [id number] #### [facility] [address], [place] [address]ZBW/Creat Ratio18 No GqrcoDbblhh95-85HxvdryFairfield Medical CenterComment on above:Performed By: #### [id number] #### [facility] [address], [place] [address]Zaexjio [Mass/Vol]8.9 mg/dLNormal8.9-11.1FZanesville City HospitalComment on above:Performed By: #### [id number] #### [facility] [address], [place] [address]Bifvdoyq [Moles/Vol]104 mmol/LIkkkng465-315LfeybuFairfield Medical CenterComment on above:Performed By: #### [id number] #### [facility] [address], [place] [address]Pctdisksbc [Mass/Vol]0.6 mg/dLNormal0.5-1.3FZanesville City HospitalComment on above:Performed By: #### [id number] #### [facility] [address], [place] [address]Xfctpblq (S) [Mass/Vol]3.0 g/dLNormal1.4-4.0Fairfield Medical CenterComment on above:Performed By: #### [id number] #### Rivera [facility] [address], [place] [address]Tcibsku [Mass/Vol]92 mg/rSDydway34-942PcakzvFairfield Medical CenterComment on above:Performed By: #### [id number] #### Rivera [facility] [address], [place] [address]Qjkqzzxig [Moles/Vol]3.7 mmol/LNormal3.5-5.3FZanesville City HospitalComment on above:Performed By: #### [id number] #### Rivera [facility] [address], [place] [address]Wmtjohd [Mass/Vol]6.8 g/dLNormal6.0-7.8[facility]field Medical CenterComment on above:Performed By: #### [id number] #### Rivera [facility] [address], [place] [address]Pelctb [Moles/Vol]136 mmol/VCznnat337-055ZyrkobFairfield Medical CenterComment on above:Performed By: #### [id number] #### Rivera [facility] [address], [place] [address]Lwzw nitrogen [Mass/Vol]11 mg/dLNormal5-21[facility]field Medical CenterComment on above:Performed By: #### [id number] #### Rivera [facility] [address], [place] [address]Hngay Panelon 51-57-3736Qrljgbblsqu [Mass/Vol]239 mg/dLHigh 120-200Fairfield Medical CenterComment on above:Performed By: #### [id number] #### Rivera [facility] [address], [place] [address]Rsvwkbjrefc in HDL [Mass/Vol]88 mg/dLInvalid Interpretation CodeFairfield Medical CenterComment on above:Result Comment: '>= 60 LOW RISK' '<= 40 HIGH RISK'Performed By: #### [id number] #### Rivera [facility] [address], [place] [address]Lvivtdxvyvh in LDL [Mass/Vol]144 mg/dLHigh<=129Fairfield Medical CenterComment on above:Performed By: #### [id number] #### [facility] [address] [place] [address] [place], [place] [address]Respsnjnloc in VLDL [Mass/Vol]40 mg/dLNormal7-40Fairfield Medical CenterComment on above:Performed By: #### [id number] #### [facility] [address], [place] [address]Rfblayaltphr [Mass/Vol]202 mg/dLHigh<=149Fairfield Medical CenterComment on above:Performed By: #### [id number] #### [facility] [address] [facility] [address] [place], [place] [address]sRVBox 52-01-2117mSDD454 mL/min/1.73 h8Uzxxry>=59Fairfield Medical CenterComment on above:Performed By: #### [id number] #### [facility] [address], [place] [address]SHJ, SERUM, OPEN SPINA BIFIDAon 64-70-6897NPL MOM0.95.[facility] HealthcareAFP VALUE59.2 ng/mL.[facility] HealthcareCOMMENT:Comment.[facility] Healthcare Comment on above:Amy Ramos, Ph.D., [facility] Director References: Available Upon Request. Multiples Of Median Cutoffs For AFP Elevations Hsieh 2.5 Black 2.8 IDD 2.0 Twins 4.5 Abbreviation Definitions IDD - Insulin Dep Diabetes OSBR - Open Spina Bifida Risk For further inquiries contact [employer] at [phone]. This test was developed and its performance characteristics determined by [employer]. It has not been cleared or approved by the Food and Drug Administration. Performed at: [facility] [address] [place], [place] [id number] Buckle Strap Drum Operator: Dona Justin Formerly [facility], Phone: [phone] GEST. AGE ON COLLECTION DATE20.6. weeksNOMS HealthcareGESTAT. AGE BASED ONLMP. NOMS HealthcareComment on above:Recalculations are not recommended when gestational dating by LMP and ultrasound are within 10 days. INSULIN DEP DIABETESNo.[facility] HospitalINTERPRETATIONComment.[facility] Comment on above:Interpretation: Screen Negative [...] Customer Services to discuss available options. The [employer] recommends amniocentesis be offered to women age 35 and older. MATERNAL AGE AT EDD30.7. yrNOTN HealthcareMULTIPLE GESTATIONNo.[facility] OSBR RISK 1 [id number].[facility] Memorial HospitalRACECaucasian.[facility] HospitalRESULTSReport. [facility] HospitalTEST RESULTS:Negative.[facility] HospitalAyldjamixmYGPQIT577. lbNavos Health HealthcarePREGNANCY N N LMP [id number] 2 17 N 1 Y 146 N N N N N White/ CLINISYNCNOTN HealthcareUS OB 14+ WEEKS ANATOMY SCANon 94-85-5832QW OB 14+ WEEKS ANATOMY SCANEXAM: US OB [...] II, MD, PHD at 16-Jul-2025 08:07:07 AM [facility] TeleradiologyNormalNot AvailableComment on above:Order Comment: US OB ANATOMY SINGLE W US OB CERVICAL LENGTH Estimated Date of Delivery: 11/28/25 Gestational Age as of 06/22/2025: 34d8uVgnrtemhou macro (dipstick) panel (U)on 38-31-1858Xctlgjlla, UANegativeNegative - 4(70) +++ mg/dLNOMS HealthcareBlood, UANegativeNegative [...] 12 mg/dLNOMS HealthcareNOMS Healthcare RECURRENT VAGINITIS (HTRX)on 39-37-1440LFQILTWIE UGAPWYQ8FCTB Healthcare ATOPOBIUM VAGINAENot detectedNOMS HealthcareBVAB 2,3 (BACTERIAL VAGINOSIS ASSOCIATED BACTERIA 2, 3); MOBILUNCUS XSP5EADB HealthcareBVAB 2,3 (BACTERIAL VAGINOSIS ASSOCIATED BACTERIA 2, 3); MOBILUNCUS SPPNot detectedNOMS Healthcare RADHA ALBICANS, PARAPSILOSIS, XRBKMHFKII3BQCV HealthcareCANDIDA ALBICANS, PARAPSILOSIS, TROPICALISNot detectedNOMS HealthcareCANDIDA SLLLXPLH4VFPZ HealthcareCANDIDA GLABRATANot detectedNOMS HealthcareCANDIDA IVPABL2VRRH HealthcareCANDIDA KRUSEINot detectedNOMS HealthcareCHLAMYDIA HZREPSLJGQL8FHID HealthcareCHLAMYDIA TRACHOMATISNot detectedNOMS HealthcareGARDNERELLA VAGINALIS 17.967AbnormalNOMS HealthcareGARDNERELLA VAGINALISDetectedAbnormalNOTN HealthcareInterpretation and review of laboratory resultsAbnormalNOTN Healthcare MEGASPHAERA (TYPES 1, 2)0NOMS HealthcareMEGASPHAERA (TYPES 1, 2)Not detectedNOMS HealthcareMYCOPLASMA QSHZYDEYWC0YFCJ HealthcareMYCOPLASMA GENITALIUMNot detectedNOMS HealthcareNEISSERIA IAASLKYYMBV3TJFL HealthcareNEISSERIA GONORRHOEAENot detectedNOMS HealthcareTRICHOMONAS ZXNVKFWDT7QLHJ Healthcare TRICHOMONAS VAGINALISNot detectedNOMS HealthcareNOMS HealthcareUrinalysis macro (dipstick) panel (U)on 16-10-6517Nhnhpdgjb, UANegativeNegative - 4(70) +++ mg/dL NOMS HealthcareBlood, UANegativeNegative - 50 Teodoro/mcLNOMS HealthcareClarity, UA ClearNOMS HealthcareColor, UAYellowNOMS HealthcareGlucose, UANegativeNegative - 2000(110) ++++ mg/dLNOMS HealthcareInterpretation and review of laboratory resultsNormalNOTN HealthcareKetones, UANegativeNegative - 160(16) ++++ mg/dLNOMS HealthcareLeukocytes, UANegativeNegative - 500+++ Robinson/mcLNOMS Healthcare Nitrite, UANegativeNegative - PositiveNOMS HealthcarepH, UA65 - 9[facility] Protein, UANegativeNegative - 1999(20) ++++ mg/dLNOMS HealthcareSpec Grav, UA 1.0051 - 1.03NOMS HealthcareUrobilinogen, UA1.00.2 - 12 mg/dLNOTN HealthcareNOTN HealthcareUrinalysis macro (dipstick) panel (U)on 54-62-0776Qexxwmytt, UA NegativeNegative - 4(70) +++ mg/dLNOTN HealthcareBlood, UANegativeNegative - 50 Teodoro/mcLNOTN HealthcareClarity, UAClearNOMS HealthcareColor, UAYellowNOTN HealthcareGlucose, UANegativeNegative - 2000(110) ++++ mg/dLMO[facility] Healthcare Interpretation and review of laboratory resultsNormalMO[facility] REG[facility]AL [facility]PITAL HealthcareKetones, UA NegativeNegative - 160(16) ++++ mg/dLMO[facility]AL [facility] HealthcareLeukocytes, UAPositive Negative - 500+++ Robinson/mcLMOAB REGIONAL HOSPITAL HealthcareComment on above:smallNitrite, UA NegativeNegative - PositiveNOTN HealthcarepH, UA6.55 - 9NOMS HealthcareProtein, UANegativeNegative - 1999(20) ++++ mg/dLNOTN HealthcareSpec Grav, UA1.011 - 1.03 NOMS HealthcareUrobilinogen, UA0.20.2 - 12 mg/dLMercy Hospital Joplin Healthcare BOX TESTon 93-78-2728KCO TEST SENT OUTunLaughlin Memorial HospitalAqxdjblueuFWR7wvfmgQJZL OjuzvnfawgVLK07/08/20NOUniversity HospitalUNITY BOX CLINISYNCCBC without diffon 07-87-1798Tyhohbalub (Bld) [Volume fraction]39.8 % [facility] SystemHemoglobin (Bld) [Mass/Vol]13.2 g/dLCleveland Clinic FoundationPlatelets (Bld) [#/Vol]390 10*3/uLCleveland Clinic FoundationRbc Mcv (Fl) By Automated Count84.7C[facility] FoundationDrug Screen, Urineon 05-04-2025 Amphetamine/MethamphetamineNegativeSt. [facility] SystemBarbituratesNegative [facility] SystemBenzodiazepinesNegativeSt. [facility] SystemCocaine MetaboliteNegativeSt. [facility] SystemMethadoneNegativeSt. [facility] SystemOpiatesNegativeProMedica Health SystemOxycodoneNegativeProMedica Health SystemPhencyclidineNegativeProMedica Health SystemThc Marijuana, UrineNegative [facility] SystemHBV surface Ag IA Qlon 62-00-6566Vbomtpgxu B Surface AntigenNegativeProMedica Health SystemHCV Ab IA Qlon 54-23-9588ZFP Ab Ql (S) Non-ReactiveProMediwa Health SystemHIV 1+2 Ab+HIV1 p24 Ag IA Qlon 13-78-5229KSY 1&2 AB/AGNon-ReactiveSt. [facility] SystemHemoglobin A1con 21-55-8062SkY1q (Bld) [Mass fraction]5.3 %4.0 - 6.0 %[facility] SystemNo Panel Information on 98-21-3505VZCZ HealthcareRubella IGG immune statusOrdered By: Angeline Velasquez on 89-42-9194Ytrzgwf immune IgGProGeorgiana Medical Center Health SystemType and screenon 97-97-2547Clv/Rh(D)PositiveProSelect Medical Specialty Hospital - ColumbusHCG ( test) Ql (U)on 45-34-2697Jxluwwburguhsm and review of laboratory resultsAbnormalNOTN Healthcare Preg Test, UrPositiveNegativeNOUniversity HospitalNOTN HealthcareUS OB TRANSVAGINALon 17-40-7172VflLe[place] [address] Ultrasound Report Signed Patient: JUHI COPE MR#: [id number] : 1995 Acct:[id number] Age/Sex: 30 / F ADM Date: 05/01/25 Loc: US Attending Dr: Nathan Pop D.O. Ordering Physician: Nathan Pop D.O. Date of Service: 05/01/25 Procedure(s): US OB transvaginal Accession Number(s): [id number] cc: Nathan Pop D.O.; Physician,Non-Staff Katherine The [address] [address] Patient Name: JUHI COPE MRN: [id number] date: 1995 Sex: F Assigned Patient Location: US Current Patient Location: US Accession/Order Number: [id number] Exam Date: 05/01/2025 08:57 Report Date: 05/01/2025 [...] Faria M.D. 05/01/2025 9:01 AM Dictation Location: [place] [address] Electronically authenticated by: [id number] Y Date: 05/01/2025 09:01 Dictated By: Will Faria M.D. Signed By: 05/01/2504 DD/ 0 TD/TT: Conservation Educator:TBHRadiology, Radiologist, MD - 05/01/2025 [place] [address] Ultrasound Report Signed Patient: JUHI COPE MR#: [id number] : 1995 Acct:[id number] Age/Sex: 30 / F ADM Date: 05/01/25 Loc: US Attending Dr: Nathan Pop D.O. Ordering Physician: Nathan Pop D.O. Date of Service: 05/01/25 Procedure(s): US OB transvaginal Accession Number(s): [id number] cc: Nathan Pop D.O.; Physician,Non-Staff Katherine [address] [address] Patient Name: JUHI COPE MRN: [id number] date: 1995 Sex: F Assigned Patient Location: US Current Patient Location: US Accession/Order Number: [id number] Exam Date: 05/01/2025 08:57 Report Date: 05/01/2025 [...] Faria M.D. 05/01/2025 9:01 AM Dictation Location: [place] [address] Electronically authenticated by: [id number] Y Date: 05/01/2025 09:01 Dictated By: Will Faria M.D. Signed By: 05/01/25903 DD/ 0 TD/TT: Conservation Educator: LANETTE HealthcareRadiology Study observation (narrative)LANETTE SmallUS OB TRANSVAGINALOrdered By: Radiologist Radiology on 08-51-4563XBSI Healthcare Work Phone: Urinalysis macro (dipstick) panel (U)on 05-01-2025 Bilirubin, UANegativeNegative - 4(70) +++ mg/dLNOMS HealthcareBlood, UANegative Negative - 50 Teodoro/mcLNOMS HealthcareClarity, UAClearNOMS HealthcareColor, UA YellowNOMS HealthcareGlucose, UANegativeNegative - 2000(110) ++++ mg/dLNOMS HealthcareInterpretation and review of laboratory resultsNormalNOTN Healthcare Ketones, UANegativeNegative - 160(16) ++++ mg/dLNOMS HealthcareLeukocytes, UA NegativeNegative - 500+++ Robinson/mcLNOMS HealthcareNitrite, UANegativeNegative - PositiveNOMS HealthcarepH, UA5.55 - 9NOMS HealthcareProtein, UANegativeNegative - 2000(20) ++++ mg/dLNOMS HealthcareSpec Grav, UA1.021 - 1.03NOMS Healthcare Urobilinogen, UA1.00.2 - 12 mg/dLNOMS HealthcareNOMS HealthcareCHEMISTRYOrdered By: SYSTEM SYSTEM on 27-38-2225Ylhemdaoyhwg Lvl31.35 ng/mLInvalid Interpretation CodeRemisol ChemComment on above:Result Comment: 'F NON FOLLICULAR = 0.10 - 0.60' 'LUTEAL = 3.00 - 17.5' 'MIDLUTEAL = 3.30 - 18.6' 'POST-MENOPAUSE = 0.10 - 0.40' '-FIRST TRIMESTER = 8.30 - 66.5' 'SECOND TRIMESTER = 18.9 - 66.1' 'THIRD TRIMESTER = 35.8 - 312.4' 'MALES = 0.14 - 2.06'Progesteroneon 78-17-7638Keoqpbrxzpcz Lvl31.35 ng/mLInvalid Interpretation CodeFairfield Medical CenterComment on above:Result Comment: 'F NON FOLLICULAR = 0.10 - 0.60' 'LUTEAL = 3.00 - 17.5' 'MIDLUTEAL = 3.30 - 18.6' 'POST-MENOPAUSE = 0.10 - 0.40' '-FIRST TRIMESTER = 8.30 - 66.5' 'SECOND TRIMESTER = 18.9 - 66.1' 'THIRD TRIMESTER = 35.8 - 312.4' 'MALES = 0.14 - 2.06'Performed By: #### [id number] #### Miguel [facility] [address] [place], [place] [address]Vdhncnhcdzmytq 1995Fkdyntfuxwte4.2 ng/mLNormal.[facility] Physician GroupComment on above:Result Comment: Follicular phase 0.1 - 0.9 Luteal phase 1.8 - 23.9 Ovulation phase 0.1 - 12.0 First trimester 11.0 - 44.3 Second trimester 25.4 - 83.3 Third trimester 58.7 - 214.0 Postmenopausal 0.0 - 0.1 Performed at: - [facility] [id number] Buckle Strap Drum Operator: Cm Sandoval PhD, Phone: [phone] PERFORMED BY: [address] [place] [address] PATHOLOGIST VARNISH MAKER HELPER ARNULFO THOMAS M.D.Performed By: #### PROG #### [facility] , Transvaginal Non-OBon 36-88-2036NG Transvaginal Non-OBExam Date/Time: 01/22/2025 16:22 EST Reason for Exam: N94.6 Report PLEASE SEE US Pelvis Non-OB Complete REPORT DATED: 01/22/2025. Ordering Provider: Nathan POP FINAL REPORT Dictated: 01/27/2025 10:11 am Siddharth Foy MD Signed (Electronic Signature): 01/27/2025 10:11 am Signed by: Siddharth Foy MD Transcribed by: ELOISA Technologist: Filiberto [facility] CenterUS Pelvis Non-OB Completeon 96-34-3400BX Pelvis Non-OB CompleteExam Date/Time: 01/22/2025 16:24 EST [...] Kate Gonzalez MD Transcribed by: ELOISA Technologist: TalyaFairfield Medical CenterMILADY,APTIMA HPV,AGE GDLNon 91-09-3822ARH GDLN ACOG TESTINGNote.NOMS HealthcareComment on above:TESTS RESULT FLAG UNITS REF RANGE LAB Clinician Provided Cytology Information Source.............Cervix;Endocervix No. of containers..01 ThinPrep Vial Age Algo ACOG Sarah... -24 12 FLAG LEGEND: L-Low Normal,H-High Normal,LL-Alert Low,HH-Alert High <-Panic Low,>-Panic High,A-Abnormal,AA-Critical Abnormal Performed at: 01 =G [facility] [place] [address] Loren Oneal MD, IGP, RFX APTIMA HPV ASCUNote.[facility] HealthcareComment on above:TESTS RESULT FLAG UNITS REF RANGE LAB DIAGNOSIS: 02 NEGATIVE FOR INTRAEPITHELIAL LESION OR MALIGNANCY. Specimen adequacy: 02 Satisfactory for evaluation. Endocervical and/or squamous metaplastic cells (endocervical component) are present. Performed by: Sophia Calzada, Director Digital Sales ([facility]) . 02 Note: Note 02 The [...] <-Panic Low,>-Panic High,A-Abnormal,AA-Critical Abnormal Performed at: [address] [address] Loren Oneal MD, Performed at: =G - [facility] [id number] Buckle Strap Drum Operator: Loren Oneal MD, Phone: [phone] Performed at: [facility] [id number] Buckle Strap Drum Operator: Loren Oneal MD, Phone: [phone] BRUSH-SPATULA CERVIX ENDOCERVIX [facility] 48-89-3177WKKGCwjtmltkj (WHQ) JUHI COPE ([id number]) 1995 F Date Time Provider Department 04/29/24 [...] [I10] Encounter Status:Closed by CANDIS GARCES on 04/29/24[facility] Gladys 40-80-1971ULLESgbcvjwut (WHQ) JUHI COPE ([id number]) 1995 F Date Time Provider Department 04/25/24 CHARLENE RODRIGUEZ During your visit today, we recorded the following information about you: Anna De Leon 04/25/2024 1:10 PM Signed Pt got in sooner for surgery with her local csw. Please cancel surgery and all pre and [...] Encounter Status:Closed by SUSI DE LEONLEY on 04/25/24[facility] 12-LEADon 25-18-6976[address] [address] Electrocardiograph Report Signed Patient: JUHI COPE MR#: [id number] : 1995 Acct:[id number] Age/Sex: 28 / F ADM Date: 02/13/24 Loc: PST Attending Dr: Nathan Pop D.O. Ordering Physician: Nathan Pop D.O. Date of Service: 02/13/24 Procedure(s): ECG 12 lead Accession Number(s): [id number] cc: The [facility] Test Date: 2024-02-13 Pat Name: JUHI COPE Department: Room: - Gender: Female Credit Specialist: : 1995 Requested By: NATHAN POP Order Number: [id number] Reading MD: MARY KATE ORDAZ Measurements Intervals [place] Rate: 86 P: 31 WY: 133 QRS: 20 QRSD: 89 T: 47 QT: 374 QTc: 449 Interpretive Statements SINUS RHYTHM No previous ECG available for comparison Electronically Signed On 02-14-2024 6:50:27 EDT by MARY KATE ORDAZ Dictated By: Mary Kate Ordaz D.O. Signed By: 02/14/24 0650 DD/ 1455 TD/TT: Conservation Educator:TBHRadiology, Radiologist, MD - 02/14/[address] [address] Electrocardiograph Report Signed Patient: JUHI COPE MR#: [id number] : 1995 Acct:[id number] Age/Sex: 28 / F ADM Date: 02/13/24 Loc: PST Attending Dr: Nathan Pop D.O. Ordering Physician: Nathan Pop D.O. Date of Service: 02/13/24 Procedure(s): ECG 12 lead Accession Number(s): [id number] cc: The [facility] Test Date: 2024-02-13 Pat Name: JUHI COPE Department: Room: - Gender: Female Credit Specialist: : 1995 Requested By: NATHAN POP Order Number: [id number] Reading MD: MARY KATE ORDAZ Measurements Intervals [place] Rate: 86 P: 31 WY: 133 QRS: 20 QRSD: 89 T: 47 QT: 374 QTc: 449 Interpretive Statements SINUS RHYTHM No previous ECG available for comparison Electronically Signed On 02-14-2024 6:50:27 EDT by MARY KATE ORDAZ Dictated By: Mary Kate Ordza D.O. Signed By: 02/14/24 0650 DD/ 1455 TD/TT: Conservation Educator: LANETTE HealthcareECG 12-LEADOrdered By: Radiologist Radiology on 33-16-2662[facility] Work Phone: ECG 12-LEADon 14-99-2862Uazgkmjfa Study observation (narrative)LANETTE HealthcareUS PELVIS W/ TRANSVAGINALon 83-23-1780FefLees[place] [address] Ultrasound Report Signed Patient: JUHI COPE MR#: [id number] : 1995 Acct:[id number] Age/Sex: 28 / F ADM Date: 01/15/24 Loc: [facility] Attending Dr: Nathan Pop D.O. Ordering Physician: Nathan Pop D.O. Date of Service: 01/15/24 Procedure(s): US pelvis w/ transvaginal Accession Number(s): [id number] cc: Nathan Pop D.O.; Physician,Non-Staff Katherine The [address] [address] Patient Name: JUHI COPE MRN: [id number] date: 1995 Sex: F Assigned Patient Location: [facility] Current Patient Location: [facility] Accession/Order Number: [id number] Exam Date: 01/15/2024 07:57 Report Date: 01/15/2024 [...] Signed By: 01/15/24 1144 DD/ 1142 TD/TT: Conservation Educator:TBHRadiology, Radiologist, - 01/15/2024 [place] [address] Ultrasound Report Signed Patient: JUHI COPE MR#: [id number] : 1995 Acct:[id number] Age/Sex: 28 / F ADM Date: 01/15/24 Loc: [facility] Attending Dr: Nathan Pop D.O. Ordering Physician: Nathan Pop D.O. Date of Service: 01/15/24 Procedure(s): US pelvis w/ transvaginal Accession Number(s): [id number] cc: Nathan Pop D.O.; Physician,Non-Staff M.DKaren The [place] [id number] Patient Name: JUHI COPE MRN: [id number] date: 1995 Sex: F Assigned Patient Location: [facility] Current Patient Location: [facility] Accession/Order Number: [id number] Exam Date: 01/15/2024 07:57 Report Date: 01/15/2024 [...] Signed By: 01/15/24 1144 DD/ 1142 TD/TT: Conservation Educator: LANETTE HealthcareRadiology Study observation (narrative)[facility] HealthcareUS PELVIS W/ TRANSVAGINALOrdered By: Radiologist Radiology on 36-59-5613[facility] [employer] Work Phone: cNPTanya [phone] (Q) JUHI COPE ([id number]) 1995 F Date Time Provider Department 12/12/23 [...] GARCES on 12/12/23[facility] 07-75-3094COGIIzusqq Visit (GYMGME) JUHI COPE ([id number]) 1995 F Date Time Provider Department 12/10/23 10:30 AM CHARLENE RODRIGUEZ During your visit today, we recorded the following information about you: Pulse Blood pressure Weight 98/minute 124/84 68.9 kg Charlene Rodriguez DO 12/10/2023 3:14 PM Signed [facility] SECTION FOR MINIMALLY INVASIVE GYNECOLOGIC SURGERY OUTPATIENT VISIT DATE 12/10/2023 OUTPATIENT VISIT TYPE Follow-up visit PRIMARY CARE PHYSICIAN: Denny Rodríguez [address] [place] [address] REFERRING PHYSICIAN: Self CHIEF COMPLAINT: No chief [...] MRI: no evidence of 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 Juhi Cope (Morales: [id number]) - [id number] Orilissa 150MG tablets Status: Sent To Plan [...] LYNN on 08/02/23[facility] 22-66-5516VSZQOvzhba Visit (GYMGME) JUHI COPE ([id number]) 1995 F Date Time Provider Department 07/16/23 11:30 AM CHARLENE RODRIGUEZ During your visit today, we recorded the following information about you: Blood pressure Last Period 136/90 07/08/23 Charlene Rodriguez DO 07/16/2023 12:41 PM Signed [facility] SECTION FOR MINIMALLY INVASIVE GYNECOLOGIC SURGERY OUTPATIENT VISIT DATE 07/16/2023 OUTPATIENT VISIT TYPE Follow-up visit PRIMARY CARE PHYSICIAN: Denny Rodríguez [address] [place] [address] REFERRING PHYSICIAN: Denny Rodríguez CHIEF COMPLAINT: No [...] additional bowel lesions identified Past Gynecologic History: 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 IMPRESSION: No deep infiltrating endometriosis. Conservation Educator: DAVID Transcribe Date/Time: Jun 12 2023 2:54P Dictated by : ASHLEY DUKE MD This examination was interpreted and the report reviewed and electronically signed by: SONIDO FLAHERTY MD on Jun 12 2023 4:51PM EST [id number] General Health CenterCNPNon [id number] (GYNMN) JUHI COPE ([id number]) 1995 F Date Time Provider Department 05/11/23 [...] Takes aygestin 5mg daily. 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 Encourage to machine operator picker the flexeril as this will help with the cramping. Reviewed red flag bleeding symptoms that require trip to ER (soaking greater than one overnight pad per hour, chest pain, shortness of breath, fatigue, palpitations).. Advised keep appt. Gives verbal understanding. Appointments for Next 60 Days Date Time Provider Location Dept Phone 05/17/2023 1:00 PM [facility] [phone] Candis Suárez RN Allergies As of Date: 05/11/2023 (No Known Allergies) Date Reviewed: 05/09/2023 Reviewed by: Jihan Downs APRN.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 TEACHER - Fully Assessed Reason for Visit: Vaginal [...] [I10] Encounter Status:Closed by CANDIS WILLINGHAM on 05/11/23[facility] CenterGracie [id number] Visit ([facility]) NITO COPEIS ([id number]) 1995 F Date Time Provider Department 05/01/23 10:30 AM JIHAN DOWNS [facility] During your visit today, we recorded the following information about you: Blood pressure Weight Height Last Period 148/64 64.9 kg 1.575 m 04/22/23 Jihan Downs APRN.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 TEACHER 05/09/2023 11:46 AM Signed Juhi Cope is a 28 year old female who presents for problem visit for pain HPI: Pain is week before period and week of period. Worse on her period for every day she's bleeding Urinary - No symptoms GI - Always constipated. No meds [place] - painful always Pain is on left [...] L0 SAB0 IAB0 Ectopic0 Multiple0 Live Births0 [place] [employer] History LMP: 03/26/2023 (Approximate), Having periods Age at Menarche: Age at First : Age at Menopause: [employer] History Comments: Sexual Activity: Never; No partner [...] physical therapy - or can go locally pelvicShanghai Yinzuo Haiya Automotive Electronicsab.MySmartPrice Trial flexeril at bedtime Can consider Baclofen [...] physical therapy - or can go locally pelvicShanghai Yinzuo Haiya Automotive Electronicsab.MySmartPrice Trial flexeril at bedtime Can consider Baclofen suppositories - let me know if you want to trial after you go to PT Contin (more content not included)...NormalKeenan Private HospitalCHEMISTRY Ordered By: SYSTEM SYSTEM on 93-58-9683Fvsikei [Mass/Vol]4.3 g/dLNormal3.3 - 5.0 gm/dLFT RemisolAlbumin/Globulin [Mass [...] [Mass/Vol]8.8 mg/dLLow8.9 - 11.1 mg/dLFTMC RemisolChloride [Moles/Vol]100 mmol/XBwo971 - 111 mmol/LFTMC RemisolCO2 [Moles/Vol]24 mmol/L Tuctcb75 - 31 mmol/LFTMC RemisolCreatinine [Mass/Vol]1.0 mg/dLNormal0.5 - 1.3 mg/dLFTMC RemisolGFR/1.73 sq M.predicted among blacks MDRD (S/P/Bld) [Vol rate/Area]mL/min/1.73 i6Yassqs>=59mL/min/1.73 m2FTMC Chem SGFR/1.73 sq M.predicted among non-blacks MDRD (S/P/Bld) [Vol rate/Area]mL/min/1.73 i0Vedhnn >=59mL/min/1.73 m2FT[facility] Chem SGlobulin (S) [Mass/Vol]3.6 g/dLNormal1.4 - 4.0 gm/dLFTMC RemisolGlucose [Mass/Vol]104 mg/rSLvzxjj02 - 199 mg/dLFTMC Remisol Potassium [Moles/Vol]3.6 mmol/LNormal3.5 - 5.3 mmol/LFTMC RemisolProtein [Mass/Vol]7.9 g/dLHigh6.0 - 7.8 gm/dLFTMC RemisolSodium [Moles/Vol]134 mmol/LLow 135 - 145 mmol/LFTMC RemisolUrea nitrogen [Mass/Vol]10 mg/dLNormal5 - 21 mg/dL FT[facility] RemisolUrea nitrogen/Creatinine [Mass ratio]10 mg/duRqflrm47 - 20FTMC RemisolHEMATOLOGYOrdered By: Amairani Jenkins on 05-52-0926Tccceouqbmbb Ql (Bld) Present (01/31/23 2:10 PM)NormalFTMC HemeManSSErythrocyte [...] fLNormal6.4 - 10.8 fLFTMC HemeAutoSSPlatelets (Bld) [#/Vol]471.0 E9/NZijmsd266.0 - 500.0 E9/LFTMC HemeAutoSSRBC (Bld) [#/Vol]4.3 E12/LNormal4.3 [...] - 0.5 E9/L [facility] HemeAutoSSLymphocytes/100 WBC (Bld)31.7 %Yyqmie13.0 - 50.0 %[facility] HemeAutoSS Lymphocytes/Leukocytes Auto (Bld) [Pure # fraction]2.4 E9/LNormal1.0 - 4.0 E9/L [facility] HemeAutoSSMonocytes/100 WBC (Bld)9.1 %Normal4.0 - 14.0 %[facility] HemeAutoSS Monocytes/Leukocytes Auto (Bld) [Pure # fraction]0.7 E9/LNormal0.2 - 1.0 E9/L [facility] HemeAutoSSNeutrophils/100 WBC (Bld)57.4 %Pdjqpt05.0 - 75.0 %[facility] HemeAutoSS Neutrophils/Leukocytes Auto (Bld) [Pure # fraction]4.3 E9/LNormal2.0 - 7.5 E9/L [facility] HemeAutoSSSEROLOGYOrdered By: Patricia Newton on 98-46-6267EYC.beta subunit (U) [Moles/Vol]NegativeNormalFT Man SeroURINALYSISOrdered By: Solomon Leal on 21-18-3907Bqhlhacyg Ql (U)Negative (01/31/23 1:57 PM)NormalNegativeFTMC UA Auto SSClarity (U)Clear (01/31/23 1:57 PM)NormalClearFTMC UA Auto SSColor (U)Yellow (01/31/23 1:57 PM)NormalYellowFTMC UA Auto SSEpithelial cells.squamous LM.HPF (Urine sed) [#/Area]3-4 /HPFNormal0-2/HPFFTMC UA Auto SSGlucose Test strip (U) [Mass/Vol]Negative (01/31/23 1:57 PM)NormalNegativeFT UA Auto SSHemoglobin Ql (U)Negative (01/31/23 1:57 PM)NormalNegativeFTMC UA Auto SSKetones (U) [Mass/Vol]Negative (01/31/23 1:57 PM)NormalNegativeFT UA Auto SSLithium.plasma/[place].RBC (Bld) [Mass ratio]0-3 /HPFNormal0-3/HPFFTMC UA Auto SSNitrite Ql (U)Negative (01/31/23 1:57 PM)NormalNegativeO[facility] Auto SSpH (U)6.0 *NA* (01/31/23 1:57 PM)Invalid Interpretation Code5.0 - 9.0[facility] UA Auto SSProtein (U) [Mass/Vol]Negative (01/31/23 1:57 PM)NormalNegativeOKEENE [facility] [place] UA Auto SSSpecific gravity (U) [Rel density] 1.010 *NA* (01/31/23 1:57 PM)Invalid Interpretation Code1.005 - 1.030[facility] UA Auto SSUA Spec DescClean Catch (01/31/23 1:57 PM)NormalOKEENE M[facility] [place] UA Auto SSUrobilinogen Qn (U)0.1474118 {Aspen'U}/dL Normal0.0 - 1.0 EU/dLOKEENE M[facility] [place] UA Auto SSWBC Auto Ql (U)Negative (01/31/23 1:57 PM)NormalNegativeOKEENE [facility] [place] [facility]A Auto SSWBC LM.HPF (Urine sed) [#/Area]0-5 /HPFNormal0-5/HPFOKEENE M[facility]ICIPAL [facility] [place] UA Auto SSBLOOD BANKOrdered By: Teena Quiroz on 87-07-2375KCB/Rh InterpPositiveInvalid Interpretation CodeOKEENE [facility] [place] BB SubsectionABSC Gel InterpNegative (12/30/22 11:28 AM)NormalOKEENE [facility] BB SubsectionCHEMISTRYOrdered By: SYSTEM SYSTEM on 45-61-6578Qpupo gap [Moles/Vol]12 mmol/LNormal6 - 16 mEq/LFTMC RemisolCalcium [Mass/Vol]8.6 mg/dLLow8.9 - 11.1 mg/dLFTMC RemisolChloride [Moles/Vol]103 mmol/L Veunao021 - 111 mmol/LFTMC RemisolCO2 [Moles/Vol]26 mmol/WIjljpa39 - 31 mmol/L [facility] RemisolCreatinine [Mass/Vol]0.9 mg/dLNormal0.5 - 1.3 mg/dLFTMC Remisol GFR/1.73 sq M.predicted among blacks MDRD (S/P/Bld) [Vol rate/Area]mL/min/1.73 s5Xkimza>=59mL/min/1.73 m2FT Chem SGFR/1.73 sq M.predicted among non-blacks MDRD (S/P/Bld) [Vol rate/Area]mL/min/1.73 z5Krqtiz>=59mL/min/1.73 m2FT Chem S Glucose [Mass/Vol]105 mg/tJJnfhmf36 - 199 mg/dLFTMC RemisolPotassium [Moles/Vol] 3.8 mmol/LNormal3.5 - 5.3 mmol/LFTMC RemisolSodium [Moles/Vol]137 mmol/LNormal 135 - 145 mmol/LFTMC RemisolUrea nitrogen [Mass/Vol]17 mg/dLNormal5 - 21 mg/dL [facility] RemisolUrea nitrogen/Creatinine [Mass ratio]19 mg/pgBcmrwj91 - 20FT[facility] RemisolCOAGULATIONOrdered By: Courtney Tang on 98-21-1021pDNZ Coag (PPP) [Time]31.5 oZjjigg21.1 - 36.5 second(s)[facility] Auto CoagINR Coag (PPP) [Relative time]1.0 {INR}Invalid Interpretation CodeFTMC Auto CoagPT Coag (PPP) [Time]11.7 sNormal 9.4 - 12.5 second(s)[facility] Auto CoagHEMATOLOGYOrdered By: SYSTEM SYSTEM on 59-26-7355Imdsjqdmh/100 WBC (Bld)1.2 %Normal0.0 - 2.0 %[facility] HemeAutoSS Basophils/Leukocytes Auto (Bld) [Pure # fraction]0.1 E9/LNormal0.0 - 0.2 E9/L [facility] HemeAutoSSEosinophils/100 WBC (Bld)4.1 %Normal0.0 - 8.0 %[facility] HemeAutoSS Eosinophils/Leukocytes Auto (Bld) [Pure # fraction]0.2 E9/LNormal0.0 - 0.5 E9/L [facility] HemeAutoSSLymphocytes/100 WBC (Bld)40.5 %Mjvdlm10.0 - 50.0 %[facility] HemeAutoSS Lymphocytes/Leukocytes Auto (Bld) [Pure # fraction]2.3 E9/LNormal1.0 - 4.0 E9/L [facility] HemeAutoSSMonocytes/100 WBC (Bld)7.6 %Normal4.0 - 14.0 %[facility] HemeAutoSS Monocytes/Leukocytes Auto (Bld) [Pure # fraction]0.4 E9/LNormal0.2 - 1.0 E9/L [facility] HemeAutoSSNeutrophils/100 WBC (Bld)46.6 %Pdpklv18.0 - 75.0 %[facility] HemeAutoSS Neutrophils/Leukocytes Auto (Bld) [Pure # fraction]2.6 E9/LNormal2.0 - 7.5 E9/L [facility] HemeAutoSSHEMATOLOGYOrdered By: Courtney Case on 47-20-2888Jgtyxldtqiy distribution width (RBC) [Ratio]14.1 %Xcjrov61.9 - 14.2 %[facility] HemeAutoSS Hematocrit (Bld) [Volume fraction]31.5 %Low34.0 - 46.0 %[facility] HemeAutoSS Hemoglobin (Bld) [Mass/Vol]10.0 g/dLLow12.0 - 16.0 gm/dLFTMC HemeAutoSSMCH (RBC) [Entitic mass]25.3 pgLow27.0 - 34.0 pgFTMC HemeAutoSSMCHC (RBC) [Mass/Vol]31.8 g/pAZmsegr23.4 - 36.0 gm/dLFTMC HemeAutoSSMCV (RBC) [Entitic vol]79.6 fLLow80.0 - 100.0 fLFTMC HemeAutoSSPlatelet mean volume (Bld) [Entitic vol]7.7 fLNormal6.4 - 10.8 fLFTMC HemeAutoSSPlatelets (Bld) [#/Vol]264.0 E9/YDqleil026.0 - 500.0 E9/LFTMC HemeAutoSSRBC (Bld) [#/Vol]4.0 E12/LLow4.3 - 5.9 E12/LFTMC HemeAutoSS WBC corrected for nucl RBC Auto (Bld) [#/Vol]5.7 E9/LNormal4.0 - 11.0 E9/LFTMC HemeAutoSSURINALYSISOrdered By: Courtney Case on 43-96-0659Sjsltzzr LM Ql (Urine sed)Trace /HPFNormalTrace/HPFFTMC UA Auto SSBilirubin Ql (U)Negative (12/30/22 8:53 AM)NormalNegativeO[facility] [place] UA Auto SSClarity (U)Clear (12/30/22 8:53 AM)NormalClearFNORTHEASTERN [facility] UA Auto SSColor (U)Yellow (12/30/22 8:53 AM)NormalYellowOKEENE M[facility]ICIP[facility] [place] UA Auto SSEpithelial cells.squamous LM.HPF (Urine sed) [#/Area]0-2 /HPFNormal0-2/HPFOKEENE MUNICIPAL [facility]OSP[facility] [place] UA Auto SSGlucose Test strip (U) [Mass/Vol]Negative (12/30/22 8:53 AM)NormalNegativeOKEENE [facility] [place] UA Auto SSHemoglobin Ql (U)2+ *ABN* (12/30/22 8:53 AM)Invalid Interpretation CodeNegativeOKEENE M[facility] [place] UA Auto SSKetones (U) [Mass/Vol]Negative (12/30/22 8:53 AM)NormalNegativeOKEENE [facility] [place] UA Auto SSLithium.plasma/[place].RBC (Bld) [Mass ratio]4-20 /HPFNormal0-3/HPFOKEENE MUNICIPAL [facility] [place] UA Auto SSNitrite Ql (U)Negative (12/30/22 8:53 AM)NormalNegativeOKEENE [facility] [place] [facility] Auto SSpH (U)6.0 *NA* (12/30/22 8:53 AM)Invalid Interpretation Code5.0 - 9.0[facility] UA Auto SSProtein (U) [Mass/Vol]Negative (12/30/22 8:53 AM)NormalNegativeOKEENE M[facility] [place] UA Auto SSSpecific gravity (U) [Rel density] 1.025 *NA* (12/30/22 8:53 AM)Invalid Interpretation Code1.005 - 1.030[facility] UA Auto SSUA Spec DescClean Catch (12/30/22 8:53 AM)NormalOKEENE M[facility]IP[facility] [place] UA Auto SSUrobilinogen Qn (U)0.5834252 {[place]'U}/dL Normal0.0 - 1.0 EU/dLOKEENE M[facility]IP[facility] [place] UA Auto SSWBC Auto Ql (U)Negative (12/30/22 8:53 AM)NormalNegativeOKEENE [facility] [place] [facility]A Auto SSWBC LM.HPF (Urine sed) [#/Area]0-5 /HPFNormal0-5/HPFOKEENE M[facility]ICIP[facility] [place] UA Auto SSOffice Visiton 78-62-3094Idskvb-up [id number] Juhi Cope 1995 F Date Provider Department Center 12/05/2022 [id number], G[facility] W[facility] None Chart Close Cosign Required by: Opal Ross MD[VARUND] No family history on file Level of Service:13242 [place] OFFICE/OUTPATIENT ESTABLISHED LOW MDM 20-29 MIN (GE,GC) Reason for Visit and Comments: Blood Pressure Check [299][facility] SHSProgress Noteon 32-10-1708Ttnrwctn Note Attestation signed by Opal Ross MD at 12/05/2022 3:19 PM [facility]: This patient was seen in [...] about 4 weeks (around 01/02/2023) for Visit .[facility] SHSProgress NoteVital signs BP 127/87 Weight 149.2lb Pulse 106 Temp 96.7NoTrinity Hospital SHSProgress Noteon 51-95-7911Reqxmiey Note Late entry due to patient care. Resident Lacy notified of B.P 138/96 heart rate 119 around 1236 see flowsheet. Also notified checked in 1 hour via orders and B.P 143/87 pulse 111. Clarified if should check in 1 hour according to orders. . Also notified patient has discharge order in. Resident Lacy states No on rechecking. Ok to discharge. Will make patient aware.[facility] SHSProgress NotePOSTPARTUM VAGINAL DELIVERY POST [...] Name: DO Vanessa Zambrano DO 12/02/2022, 5:09 [facility]42on 22-64-66226825.5mm flanges given to patient. Encouraged her to call for observation of pump session and smaller flanges. Martha in NICU to assist with personal pump.[facility] HealthCARECOORDon 18-24-6043RSTYRXCAO84 year old admitted for induction of labor [...] to home. Denies any concerns at this time.[facility] SHSProgress Noteon 81-53-7261Vmscgtri Note NOTE - VAGINAL DELIVERY POST DAY [...] with more than 50% of the total adic-wu-mlkh time of the visit in counseling/coordination of care. , 9:22 [facility] IER63ef 39-39-615552Jihth given to patient and educated how to use and to bring to [facility] IPF31Bazwhf pump use indicated for this pt. 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 Bowden; Dr. Kramer Information: Information for the patient's : Francie Cope [[id number]] Information for the patient's : Francie Cope [[id number]] Description: normal Meconium Noted: No Anesthesia: epidural [...] for: RUBELLAIGG Irina Kramer, DO 11/30/2022, 4:04 [facility] SHSProgress Noteon 51-30-6706Fncqrnlg NoteFoley catheter inserted by Andi Bacon RN, catheter drained and emptied for 900cc. Catheter secured to leg.[facility] SHSProgress NotePatient up to bathroom but remains unable to void. Bladder scan completed and reads >570. Sent secure message to Dr. Ruiz letting her know the above. Instructed to place chauhan catheter.[facility] Medical CenterProgress Note Secure message sent to Dr. Gamez stating patient is having difficulty voiding, patient's perineum is very swollen, and that patient was straight cathed for 950ml at noon. Received order for benadryl to help with swelling. [facility] Medical CenterProess NoteNutrition rescreen completed. Chart reviewed. Patient to be monitored and followed by the diet civil cadd technician. Suad Samuels, DTKingsbrook Jewish Medical Center SHSProgress NotePatient unable to void, last straight cathed at 0400. Bladder scan obtained for >928 ml, fundus +2 and shifted to right. Patient straight cathed on attempt x2 by Andi Bacon RN for 950cc. Will continue to monitor.[facility] SHSCAREPLNon 30-64-4759XBZJXBQDxo patient will continue to make cervical change. Clotilde Mg, RNNoTrinity Hospital SHSLaboratory - Hematology and Cell countsOrdered By: Lucrecia Cervantes on 35-43-9444Gdbakgkhb (Bld) [#/Vol]386 10*3/uL140 - 440 10*3/uLSuohiohealth arthur [facility]. [facility], [facility] center HealthPlatelets (Bld) [#/Vol]Ordered By: Lucrecia Cervantes on 59-10-1885Uubwzmjoljczit and review of laboratory resultsNormal [facility]. agalactiae DNA TENA+probe Ql (Unsp spec)on 11-29-2022 Group B Strep ScreenNot detectedNot [facility] HealthInterpretation and review of laboratory resultsNoThe MetroHealth SystemMethodology: real-time PCRSMary Greeley Medical CenterABO and Rh group Confirm Nom (Bld)on 52-10-1122RDV group Nom (Bld)OSumma HealthD Ag Ql (RBC)PositiveSumLakeHealth Beachwood Medical Center HealthBlood type and Crossmatch panel (Bld)on 54-22-5815AEM group Nom (Bld)OSumma HealthBlood group antibody screen GEL QlNegativeSumma HealthD Ag Ql (RBC)PositiveSummn Healthmma HealthCBC panel Auto (Bld)Ordered By: Lauren Ayers on 22-74-2586Blvxtycvbok distribution width (RBC) [Ratio]13.3 %11.5 - 14.5 %[facility] HealthHematocrit (Bld) [Volume fraction]33.8 %Low35.0 - 47.0 %Summa HealthHemoglobin (Bld) [Mass/Vol] 11.2 g/dLLow11.7 - 16.0 g/dLSumma HealthInterpretation and review of laboratory resultsAbnormalSFairfield Medical CenterH (RBC) [Entitic mass]28.0 pg26.0 - 34.0 pgSFairfield Medical CenterHC (RBC) [Mass/Vol]33.1 %32.0 - 36.0 %[facility] HealthMCV (RBC) [Entitic vol]84.4 fL80.0 - 98.0 fLSumma HealthPlatelet mean volume (Bld) [Entitic vol]8.3 fL7.4 - 12.4 fLSumma HealthPlatelets (Bld) [#/Vol]319 10*3/uL140 - 440 10*3/uL Summa HealthRBC (Bld) [#/Vol]4.00 10*6/uL3.8 - 5.20 10*6/uLSumma HealthWBC (Bld) [#/Vol]18.9 10*3/uLHigh3.6 - 10.7 10*3/uLSumma HealthOhiohealth [facility]erington [facility] HealthComprehensive metabolic 1998 panelon 21-56-2902Qwjebpq [Mass/Vol]3.9 g/dL3.5 - 5.0 g/dLSumma HealthALP [Catalytic [...] HealthGFR/1.73 sq M.predicted MDRD (S/P/Bld) [Vol rate/Area]- [facility]Patterson Medical CenterComment on above: Calculation based on the Chronic Kidney Disease Epidemiology Collaboration (CKD- EPI) equation refitwithout adjustment for raceGlucose [Mass/Vol]158 mg/uZKfwt47 - 100 mg/dLSumma HealthInterpretation and review of laboratory resultsAbnormal Summa HealthPotassium [Moles/Vol]4.1 mmol/L3.5 - 5.1 mmol/LSumma HealthProtein [Mass/Vol]7.5 g/dL6.3 - 8.2 g/dLSumma HealthSodium [Moles/Vol]133 mmol/TUsv951 - 145 mmol/LSumma HealthUrea nitrogen [Mass/Vol]5 mg/dLLow7 - 17 mg/dLSumma HealthSumma HealthLaboratory - Hematology and Cell countsOrdered By: Shruthi Fontana on 96-07-0577Olwymftvm (Bld) [#/Vol]335 10*3/uL140 - 440 10*3/uLSumma HealthPlatelets (Bld) [#/Vol]Ordered By: Shruthi Fontana on 11-28-2022 Interpretation and review of laboratory resultsNormOhio State Harding Hospital Health CHEMISTRYOrdered By: Araca on 51-10-1295Iipx T4 index Calc [Mass/Vol] 5.98 ng/dLNormal5.90 - [...] Code0.1 - 0.9 mg/dL FT RemisolChloride [Moles/Vol]102 mmol/NYrnyzb161 - 111 mmol/LFTMC RemisolCO2 [Moles/Vol]18 mmol/LLow21 - 31 mmol/LFTMC RemisolCreatinine [Mass/Vol]0.6 mg/dL Normal0.5 - 1.3 mg/dLFTMC RemisolGFR/1.73 sq M.predicted among blacks MDRD (S/P/Bld) [Vol rate/Area]mL/min/1.73 k5Bpbzcv>=59mL/min/1.73 m2FTMC Chem S GFR/1.73 sq M.predicted among non-blacks MDRD (S/P/Bld) [Vol rate/Area] mL/min/1.73 w4Zzftxp>=59mL/min/1.73 m2[facility] Chem SGlobulin (S) [Mass/Vol]4.0 g/dL Normal1.4 - 4.0 gm/dLOKEENE [facility]IP[facility] RemisolPotassium [Moles/Vol]3.7 mmol/LNormal3.5 - 5.3 mmol/LFTMC RemisolProtein [Mass/Vol]7.1 g/dLNormal6.0 - 7.8 gm/dLOKEENE M[facility] [place] Remisol Sodium [Moles/Vol]132 mmol/MDqq871 - 145 mmol/LFTMC RemisolUrate [Mass/Vol]4.9 mg/dLNormal2.2 - 7.4 mg/dLOKEENE M[facility] [place] RemisolUrea nitrogen [Mass/Vol]7 mg/dLNormal5 - 21 mg/dLOKEENE M[facility] [place] RemisolCOAGULATIONOrdered By: Amairani Jenkins on 02-25-4270lVPM Coag (PPP) [Time]25.3 wZegoyw79.1 - 36.5 second(s)[facility] Auto Coag Fibrin+Fibrinogen fragments (S) [Mass/Vol]>10 and <40 *ABN* (11/27/22 3:14 PM)Invalid Interpretation Code<10[facility] Man SeroFibrinogen Coag (PPP) [Mass/Vol]539 mg/zNPqun564 - 393 mg/dLOKEENE M[facility]IP[facility] [place] Auto CoagINR Coag (PPP) [Relative time]0.9 {INR}Invalid Interpretation CodeOKEENE M[facility]ICIP[facility] [place] Auto CoagPT Coag (PPP) [Time]10.1 sNormal9.4 - 12.5 second(s)[facility] Auto CoagHEMATOLOGYOrdered By: Raquel Arteaga on 74-90-3786Kdwzmztgbii distribution width (RBC) [Ratio]12.9 %Oowcft80.9 - 14.2 % [facility] HemeAutoSSHematocrit (Bld) [Volume fraction]34.2 %Sukyji16.0 - 46.0 %[facility] HemeAutoSSHemoglobin (Bld) [Mass/Vol]11.0 g/dLLow12.0 - 16.0 gm/dLOKEENE M[facility] [place] HemeAutoSSMCH (RBC) [Entitic mass]27.3 jiTkpems86.0 - 34.0 pgFTMC HemeAutoSSMCHC (RBC) [Mass/Vol]32.3 g/gKAxwrzb65.4 - 36.0 gm/dLFT HemeAutoSSMCV (RBC) [Entitic vol]84.6 nOSgazoh46.0 - 100.0 fLFT HemeAutoSSPlatelet mean volume (Bld) [Entitic vol]8.2 fLNormal6.4 - 10.8 fLFT HemeAutoSSPlatelets (Bld) [#/Vol]273.0 E9/EDbogmt706.0 - 500.0 E9/LFC HemeAutoSSRBC (Bld) [#/Vol]4.0 E12/LLow4.3 - 5.9 E12/LFNORTHEASTERN HEALTH SYSTEM – [facility] HemeAutoSSWBC corrected for nucl RBC Auto (Bld) [#/Vol]15.7 E9/LHigh4.0 - 11.0 E9/LFC HemeAutoSSComment on above:Result Comment: Slide reviewed by ts Unable to obtain accurate platelet count due to platelet clumping. Platelet count estimate appears normal on slide..URINALYSISOrdered By: Amairani Jenkins on 43-10-8804Euwxjmrwc Ql (U)Negative (11/27/22 1:55 PM)NormalNegativeOKEENE [facility] [place] UA Auto SSClarity (U)Clear (11/27/22 1:55 PM)NormalClearFNORTHEASTERN [facility]ALTH SYSTEM [facility] UA Auto SSColor (U)Yellow (11/27/22 1:55 PM)NormalYellowFT UA Auto SSEpithelial cells.squamous LM.HPF (Urine sed) [#/Area]3-4 /HPFNormal0-2/HPFFTMC UA Auto SSGlucose Test strip (U) [Mass/Vol]Negative (11/27/22 1:55 PM)NormalNegativeOKEENE [facility] [place] UA Auto SSHemoglobin Ql (U)1+ *ABN* (11/27/22 1:55 PM)Invalid Interpretation CodeNegativeFT UA Auto SSKetones (U) [Mass/Vol]Negative (11/27/22 1:55 PM)NormalNegativeOKEENE [facility] [place] UA Auto SSLithium.plasma/[place].RBC (Bld) [Mass ratio]4-20 /HPFNormal0-3/HPFOKEENE MUNICIPAL [facility] [place] UA Auto SSNitrite Ql (U)Negative (11/27/22 1:55 PM)NormalNegativeOKEENE [facility] [place] UA Auto SSpH (U)6.5 *NA* (11/27/22 1:55 PM)Invalid Interpretation Code5.0 - 9.0[facility] [place] [facility] Auto SSProtein (U) [Mass/Vol]Negative (11/27/22 1:55 PM)NormalNegativeOKEENE [facility] [place] [facility] Auto SSSpecific gravity (U) [Rel density] 1.010 *NA* (11/27/22 1:55 PM)Invalid Interpretation Code1.005 - 1.030[facility] [place] [facility] Auto SSUA Spec DescClean Catch (11/27/22 1:55 PM)NormalOKEENE [facility] [place] [facility] Auto SSUrobilinogen Qn (U)0.1673812 {[place]'U}/dL Normal0.0 - 1.0 EU/dLOKEENE M[facility] [place] [facility] Auto SSWBC Auto Ql (U)Negative (11/27/22 1:55 PM)NormalNegativeOKEENE [facility] [place] Auto SSWBC LM.HPF (Urine sed) [#/Area]0-5 /HPFNormal0-5/HPFOKEENE [facility] [place] Auto SSCHEMISTRYOrdered By: SYSTEM SYSTEM on 07-14-2022 Albumin [Mass/Vol]3.6 g/dLNormal3.3 - 5.0 gm/dLOKEENE [facility] [place] RemisolAlbumin/Globulin [Mass ratio]1.1 {ratio}Normal1.1 - 2.2[facility] RemisolALP [Catalytic activity/Vol]41 [iU]/cXgdtka14 - 98 Int._Unit/LFT[facility] RemisolALT No additional P-5'-P [Catalytic activity/Vol]19 [iU]/dNormal6 - 46 Int._Unit/L[facility] RemisolAnion gap [Moles/Vol] 11 mmol/LNormal6 - 16 mEq/L[facility] RemisolAST [Catalytic activity/Vol]21 [iU]/d Normal5 - 43 Int._Unit/L[facility] RemisolBilirubin [Mass/Vol]0.7 mg/dLNormal0.0 - 1.1 mg/dLOKEENE [facility] [place] RemisolBilirubin.direct [Mass/Vol]0.1 mg/dLNormal0.1 - 0.4 mg/dLFTMC RemisolBilirubin.indirect [Mass or moles/Vol]0.6 mg/dLNormal0.1 - 0.9 mg/dLFT[facility] RemisolCalcium [Mass/Vol]8.9 mg/dLNormal8.9 - 11.1 mg/dLFT[facility] RemisolChloride [Moles/Vol]107 mmol/DRkdkxy445 - 111 mmol/LFT[facility] RemisolCO2 [Moles/Vol]22 mmol/L Izgvlx89 - 31 mmol/LFT[facility] RemisolCreatinine [Mass/Vol]0.6 mg/dLNormal0.5 - 1.3 mg/dLFT[facility] RemisolGFR/1.73 sq M.predicted among blacks MDRD (S/P/Bld) [Vol rate/Area]mL/min/1.73 y2Nniaej>=59mL/min/1.73 m2[facility] Chem SGFR/1.73 sq M.predicted among non-blacks MDRD (S/P/Bld) [Vol rate/Area]mL/min/1.73 r1Plntey >=59mL/min/1.73 m2[facility] Chem SGlobulin (S) [Mass/Vol]3.3 g/dLNormal1.4 - 4.0 gm/dLFT[facility] RemisolGlucose [Mass/Vol]99 mg/qYVcrecf16 - 199 mg/dLFT[facility] Remisol Potassium [Moles/Vol]3.5 mmol/LNormal3.5 - 5.3 mmol/LFT[facility] RemisolProtein [Mass/Vol]6.9 g/dLNormal6.0 - 7.8 gm/dLFT[facility] RemisolSodium [Moles/Vol]136 mmol/L Ldccmq120 - 145 mmol/LFT[facility] RemisolUrea nitrogen [Mass/Vol]8 mg/dLNormal5 - 21 mg/dLFT[facility] RemisolUrea nitrogen/Creatinine [Mass ratio]13 mg/gwCgrqtm06 - 20[facility] RemisolHEMATOLOGYOrdered By: SYSTEM SYSTEM on [id number]/100 WBC (Bld) 0.3 %Normal0.0 - 2.0 %[facility] [...] 7.5 E9/LFT[facility] HemeAutoSSHEMATOLOGYOrdered By: Teena Quiroz on 26-24-5349Ffrcldtzgvp distribution width (RBC) [Ratio]12.9 %Normal 10.9 - 14.2 %[facility] HemeAutoSSHematocrit (Bld) [Volume fraction]33.6 %Low34.0 - 46.0 %[facility] HemeAutoSSHemoglobin (Bld) [Mass/Vol]11.5 g/dLLow12.0 - 16.0 gm/dL [facility] HemeAutoSSMCH (RBC) [Entitic mass]28.5 pgPinldo33.0 - 34.0 pgFTMC HemeAutoSSMCHC (RBC) [Mass/Vol]34.1 g/bINzvkxb42.4 - 36.0 gm/dLFTMC HemeAutoSS MCV (RBC) [Entitic vol]83.5 sLFgccpn36.0 - 100.0 fLFTMC HemeAutoSSPlatelet mean volume (Bld) [Entitic vol]8.1 fLNormal6.4 - 10.8 fLOKE[facility] [place] HemeAutoSSPlatelets (Bld) [#/Vol]271.0 E9/HOhhanv904.0 - 500.0 E9/[facility] HemeAutoSSRBC (Bld) [#/Vol] 4.0 E12/LLow4.3 - 5.9 E12/[facility] HemeAutoSSWBC corrected for nucl RBC Auto (Bld) [#/Vol]13.9 E9/LHigh4.0 - 11.0 E9/[facility] HemeAutoSSURINALYSISOrdered By: Deirdre Gilliam on 03-43-0053Nbkjwkbt LM Ql (Urine sed)Trace /HPFNormalTrace/HPFOKEENE [facility] [place] UA Auto SSBilirubin Ql (U)Negative (07/14/22 5:00 AM)NormalNegativeOKEENE [facility] [place] [facility] Auto SSClarity (U)Clear (07/14/22 5:00 AM)NormalClearFNORTHEAST[facility] Auto SSColor (U)Yellow (07/14/22 5:00 AM)NormalYellowOKEENE [facility] [place] [facility] Auto SSEpithelial cells.squamous LM.HPF (Urine sed) [#/Area]3-4 /HPFNormal0-2/HPFOKEENE [facility] [place] U[facility] Auto SSGlucose Test strip (U) [Mass/Vol]Negative (07/14/22 5:00 AM)NormalNegativeOKEENE [facility] [place] [facility] Auto SSHemoglobin Ql (U)Trace *ABN* (07/14/22 5:00 AM)Invalid Interpretation CodeNegativeOKEENE [facility] [place] [facility] Auto SSKetones (U) [Mass/Vol]Negative (07/14/22 5:00 AM)NormalNegativeOKEENE [facility] [place] [facility] Auto SSLithium.plasma/[place].RBC (Bld) [Mass ratio]0-3 /HPFNormal0-3/HPFOKEENE [facility] [place] [facility] Auto SSMucus Ql (Urine sed)Trace (07/14/22 5:00 AM)NormalOKEENE [facility] [place] [facility] Auto SSNitrite Ql (U)Negative (07/14/22 5:00 AM)NormalNegativeOKEENE M[facility] [place] [facility] Auto SSpH (U)6.0 *NA* (07/14/22 5:00 AM)Invalid Interpretation Code5.0 - 9.0O[facility] Auto SSProtein (U) [Mass/Vol]Negative (07/14/22 5:00 AM)NormalNegativeOKEENE [facility] [place] [facility] Auto SSSpecific gravity (U) [Rel density] 1.020 *NA* (07/14/22 5:00 AM)Invalid Interpretation Code1.005 - 1.030O[facility] Auto SSUA Spec DescClean Catch (07/14/22 5:00 AM)NormalOKEENE M[facility] [place] [facility] Auto SSUrobilinogen Qn (U)0.8624626 {Aspen'U}/dLNormal0.0 - 1.0 EU/dLOKEENE [facility] [place] [facility] Auto SSWBC Auto Ql (U)Negative (07/14/22 5:00 AM)NormalNegativeOKEENE [facility] [place] [facility] Auto SSWBC LM.HPF (Urine sed) [#/Area]0-5 /HPFNormal0-5/HPFOKEENE [facility] [place] [facility] Auto SSCHEMISTRYOrdered By: SYSTEM SYSTEM on 46-65-7195Ymnbqrf [Mass/Vol]4.4 g/dLNormal3.3 - 5.0 gm/dLFTMC Remisol Albumin/Globulin [Mass ratio]1.1 {ratio}Normal1.1 - 2.2[facility] RemisolALP [Catalytic activity/Vol]64 [iU]/pCzmmyv56 - 98 Int._Unit/LFT[facility] RemisolALT No additional P-5'-P [Catalytic activity/Vol]107 [iU]/dHigh6 - 46 Int._Unit/LFT[facility] RemisolAST [Catalytic activity/Vol]63 [iU]/dHigh5 - 43 Int._Unit/L[facility] Remisol Bilirubin [Mass/Vol]1.5 mg/dLHigh0.0 - 1.1 mg/dLFTMC RemisolBilirubin.direct [Mass/Vol]0.2 mg/dLNormal0.1 - 0.4 mg/dLFTMC RemisolBilirubin.indirect [Mass or moles/Vol]1.3 mg/dLHigh0.1 - 0.9 mg/dLFT[facility] RemisolCholesterol [Mass/Vol]193 mg/uLCbtlmj459 - 200 mg/dLFTMC RemisolCholesterol in HDL [Mass/Vol]64 mg/dL Invalid Interpretation CodeFTMC RemisolCholesterol in LDL [Mass/Vol]116 mg/dL Normal<=129mg/dLFT[facility] RemisolCholesterol in VLDL [Mass/Vol]13 mg/dLNormal7 - 40 mg/dLFTMC RemisolGlobulin (S) [Mass/Vol]3.9 g/dLNormal1.4 - 4.0 gm/dLFT[facility] RemisolProtein [Mass/Vol]8.3 g/dLHigh6.0 - 7.8 gm/dLFTMC RemisolTriglyceride [Mass/Vol]67 mg/dLNormal<=149mg/dLFT[facility] RemisolCOAGULATIONOrdered By: Courtney Case on 71-04-2307XWF Coag (PPP) [Relative time]1.0 {INR}Invalid Interpretation Code [facility] Auto CoagPT Coag (PPP) [Time]12.4 oCxugqb65.2 - 12.9 second(s)[facility] Auto CoagHEMATOLOGYOrdered By: SYSTEM SYSTEM on 06-07-1597Niurfktmg/100 WBC (Bld)0.7 %Normal0.0 - 2.0 %[facility] HemeAutoSSBasophils/Leukocytes Auto (Bld) [Pure # fraction]0.0 E9/LNormal0.0 - 0.2 E9/LFTMC HemeAutoSSEosinophils/100 WBC (Bld)3.2 %Normal0.0 - 8.0 %[facility] HemeAutoSSEosinophils/Leukocytes Auto (Bld) [Pure # fraction]0.2 E9/LNormal0.0 - 0.5 E9/LFTMC HemeAutoSSLymphocytes/100 WBC (Bld) 31.9 %Tepunh54.0 - 50.0 %[facility] HemeAutoSSLymphocytes/Leukocytes Auto (Bld) [Pure # fraction]1.9 E9/LNormal1.0 - 4.0 E9/LFTMC HemeAutoSSMonocytes/100 WBC (Bld)9.1 %Normal4.0 - 14.0 %[facility] HemeAutoSSMonocytes/Leukocytes Auto (Bld) [Pure # fraction]0.5 E9/LNormal0.2 - 1.0 E9/LFTMC HemeAutoSSNeutrophils/100 WBC (Bld) 55.1 %Uinold87.0 - 75.0 %[facility] HemeAutoSSNeutrophils/Leukocytes Auto (Bld) [Pure # fraction]3.3 E9/LNormal2.0 - 7.5 E9/LFTMC HemeAutoSSHEMATOLOGYOrdered By: Chivo Ward on 42-53-9231Hztglnopefq distribution width (RBC) [Ratio]12.9 % Xnqoux96.9 - 14.2 %[facility] HemeAutoSSHematocrit (Bld) [Volume fraction]40.1 %Normal 34.0 - 46.0 %[facility] HemeAutoSSHemoglobin (Bld) [Mass/Vol]13.2 g/lYGbksov39.0 - 16.0 gm/dLFTMC HemeAutoSSMCH (RBC) [Entitic mass]27.7 deOfuaia33.0 - 34.0 pgFTMC HemeAutoSSMCHC (RBC) [Mass/Vol]32.8 g/fJTegruq88.4 - 36.0 gm/dLFTMC HemeAutoSS MCV (RBC) [Entitic vol]84.3 oMJezmjx53.0 - 100.0 fLFTMC HemeAutoSSPlatelet mean volume (Bld) [Entitic vol]8.5 fLNormal6.4 - 10.8 fLFTMC HemeAutoSSPlatelets (Bld) [#/Vol]299.0 E9/NXehpjh314.0 - 500.0 E9/L[facility] HemeAutoSSRBC (Bld) [#/Vol] 4.8 E12/LNormal4.3 - 5.9 E12/LFT[facility] HemeAutoSSWBC corrected for nucl RBC Auto (Bld) [#/Vol]5.9 E9/LNormal4.0 - 11.0 E9/LFC HemeAutoSSLMPon 40-02-5633Exsp risk assessmenta) No falls within the last zmviFA-RWWTS-Kdhnnd 320 Work Phone: Last menstrual period start cexttekxvcPB-WZJYZ-Xcjids 320 Work Phone: Tobacco use status CPHSb) OzFX-BUJPV-Ugqxme 320 Work Phone: OB/MACHINE BASTER - Office Visiton 30-71-6903IV/MACHINE BASTER - Office VisitDiagnoses/Problems Assessed Endometriosis (617.9) (N80.9) Orders Start: Orilissa 200 MG Oral Tablet; take 1 tablet by mouth twice a day Provider Impressions 26 yo 1. endometriosis: discussed options continue norethindrone rx'd orilissa 200 mg bid rtc in 3 months Chief Complaint patient here to discuss pain related to endometriosis, declined bottom steep tender. CH ARCHITECTURAL INTERN History of Present Dqochxs35 yo presents as a follow up for [...] again engaged x 1 year working at [employer] [place] [employer] Constitutional: no fever, no [...] hours Vitals Vital Signs Recorded: 09Feb2022 11:41AM Ggzxbhtk973 Kjxdzqefy45 Height5 ft 2 in Iqsksr412 lb BMI Ttqkcxbwnt00.51 kg/m2 BSA Calculated1.61 Tobacco Useb) No Fall [...] NormalUH TouchworksXR KNEE LEFT (MIN 4 VIEWS)on 98-52-3366DC KNEE LEFT (MIN 4 VIEWS)EXAM: XR KNEE [...] Joe Lopez MD 09/29/21 Final resultNormalMercy Marcin Lds HospitalOB/MACHINE BASTER - Office Visiton 11-79-2689OD/MACHINE BASTER - Office VisitDiagnoses/Problems Assessed Anxiety (300.00) (F41.9) Orders Start: FLUoxetine HCl - 20 MG Oral Capsule; TAKE 1 CAPSULE Daily Provider Impressions 26 yo 1. endometriosis - discussed treatment options rx'd Prozac for mood rx'd norethindrone rtc in 3 months Chief Complaint patient to follow up on medication from last visit in march 2021, declined bottom steep tender. CH ARCHITECTURAL INTERN History of Present Ysxvjru19 yo with endometriosis was on norethindrone d/c'd [...] Every 6 hours Vitals Vital Signs Recorded: 81Izn8626 01:19PM Zlslypdx707 Xevsqafbk31 Height5 ft 2 in Sszmnn542 lb BMI Qcjedhvknr01.58 kg/m2 BSA Calculated1.53 Tobacco Useb) No Fall Screeninga) No falls within the last year SYN45Gnh9345 Pain Scale0 Signatures Electronically signed by : Charlene Rodriguez DO; Jun 03 2021 10:55AM EST (Author) NormalUH TouchworksChlamydia sp identified Org specific cx Nom (Genital specimen)Ordered By: Jackelyn Dela Cruz on 39-29-1990Fhwttqxx Chlamydia Screen NegativeNegativeSummn HealthHBV surface Ag IA Qlon 14-37-8322Zrakbees Hepatitis B Surface AgNegativeNegative, None DetectedSumma HealthHIV 1+2 Ab and HIV1 p24 Ag IA.rapid Nom (S/P/Bld)on 88-29-1530AXY-1/HIV-2 AbNegativeSumma HealthNo Panel Informationon 79-12-2387Hkiqqizb Gonorrhea ScreenNegativeNegativeSumma Health External Rubella IGG QuantitationPositiveSumma HealthSumma HealthNo Panel InformationOrdered By: Jackelyn Dela Cruz on 51-96-6791Rjcjt HealthReagin Ab RPR Ql (S)on 80-10-1709Ftxrjcmk RPRNon-ReactiveBorderline, Nonreactive, Weakly Reactive, EquivocalSumma HealthOB/MACHINE BASTER - Office Visiton 36-19-2886KX/MACHINE BASTER - Office VisitDiagnoses/Problems Assessed Endometriosis (617.9) (N80.9) Never smoker Orders Stop: Norethindrone Acetate 5 MG Oral Tablet Tobacco Use Screening; Status:Complete; Done: 20Vbx9249 Provider Impressions 26 yo 1. endometriosis: rx'd norethindrone referral to pelvic floor PT rtc in 3-6 months if continues to have pain, will consider centrally acting neuromodulator Chief Complaint Patient presents today for f/u for endometriosis PAP per patient 2019 [employer] declined -CATY,ARCHITECTURAL INTERN LMP 04/11/21 History of Present Glbvcvd16 yo with endometriosis bleeding once per month, [...] DO; Apr 20 2021 11:04AM EST (Author) Counts include 234 beds at the [facility] TouchworksTobacco Screening.on 49-82-4157Yrml risk assessmenta) No falls within the last ftchZT-KIVZT-Sqkdbh 320 Work Phone: Lasm menstrual period start hlnb94Nqp0958 AK-RXZDG-Mtwwex 320 Work Phone: Tobacco Screening.b) RoXH-CRJKZ-Hylamh 320 Work Phone: Radiologyon 19-73-4855TR Kidney - bilateralNormal MK-Gxvyxfz-Uqrwmodaw Work Phone: us RENAL BILATon 22-02-8302CU RENAL BILATMRN: [id number] Patient Name: JUHI COPE STUDY: US RENAL BILAT; 04/14/2021 1:14 pm INDICATION: Recurrent UTI. COMPARISON: None. ACCESSION NUMBER(S): [id number] ORDERING CLINICIAN: TERI CHAU TECHNIQUE: Multiple images [...] ultrasound. Electronically signed by: GENEVIEVE CAR STUPIN, MDConemaugh Nason Medical Center Office Visit (Urology)on 96-59-8863Pvlzow-up visitDiagnoses/Problems Assessed Recurrent UTI (599.0) (N39.0) Orders Recurrent UTI Start: Nitrofurantoin Monohyd Macro 100 MG Oral Capsule; TAKE 1 CAPSULE Other Please take one capsule after sexual intercourse to prevent UTI Rx By: Teri Chau; Dispense: 30 Days ; #:30 Capsule; Refill: 11;For: Recurrent UTI; ROSY = N; Verified Transmission to [facility] [facility] Kid[facility] Bilateral; Status:Hold For - Scheduling; Requested for:73Yge4912; Perform:[facility]; Due:72Cdd0412; Last Updated By:Isela Terrazas; 04/01/2021 9:16:17 AM;Ordered; [...] UTI; ROSY = N; [place] [address] Provider Impressions 26 year old female with history of endometriosis presents today via telehealth as a new patient forevaluation of recurrent UTIs. She reports getting UTIs at least once per month, noting occasional nocturia. Symptoms include burning, frequency, and back pain. She states that some UTIs are related to sexual intercourse but most are not. Patient reports she saw Dr. Booth at [facility] in [place], noting she was only treated with medications and urethral dilation for a supposed stricture.Denies gross hematuria. Patient is a non-smoker. Urine culture from [facility] on 03/04/21 was positive for E. [...] NPV - recurrent UTI History of Present Dvcognc57 year old female with history of endometriosis presents today via telehealth as a new patient for evaluation of recurrent UTIs. She reports getting UTIs at least once per month, noting occasional nocturia. Symptoms include burning, frequency, and back pain. She states that some UTIs are related to sexual intercourse but most are not. Patient reports she saw Dr. Booth at [facility] in [place], noting she was only treated with medications [...] content not included)...NormalUH TouchworksNM GASTRIC EMPTYING SOLIDon 24-82-8416UO GASTRIC EMPTYING SOLID* * *Final Report* * * DATE OF EXAM: Nov 05 2020 12:26PM [facility] 0017 - NM GASTRIC EMPTYING SOLID / [...] 4 HOURS IS CONSISTENT WITH MILD GASTROPARESIS. Conservation Educator: PSCB Transcribe Date/Time: Nov 05 2020 1:09P Dictated by : SIDDHARTH PEREA MD This examination was interpreted and the report reviewed and electronically signed by: SIDDHARTH PEREA MD on Nov 05 2020 1:24PM EST [id number] Specialty HospitalANES POSTPROC EVALon 30-65-2721OSGK POSTPROC EVALHNO ID: [id number] Author: Austin Story Service: ? Author Type: [...] October 25, 2020 TIME: 2:52 PM CSN: [id number] HospitalANES PRE-OPon 94-53-7271QWBU PRE-OPHNO ID: [id number] Author: Austin Story Service: ? Author Type: [...] October 25, 2020 TIME: 1:08 PM CSN: [id number] Oaks Behavioral Health Center PATHOLOGYon 10-25-2020 SURGICAL PATHOLOGYSpecimen originated from [facility] Specimen #: [id number] Submitting Physician: MALCOLM CRUZ MD FINAL DIAGNOSIS [...] in one cassette. Gross examination performed at [facility], [address] [place] [address] 10/25/2020 7:59:40 PM Date of Report: 10/26/2020 Date of Procedure: 10/25/2020 Date of Receipt: 10/25/2020 Submitted by: MALCOLM CRUZ MD Location: [facility] Diagnostic interpretation performed at [facility], [address] [place] [address]. [place] Number: [id number] Clinic Reference LabComment on above:Performed By: #### S #### See report for performing lab information.SURGICAL PATHOLOGYSpecimen originated from [facility] Specimen #: [id number] Submitting Physician: MALCOLM CRUZ MD FINAL DIAGNOSIS [...] in one cassette. Gross examination performed at [facility], [address] [place] [address] EJL 10/25/2020 7:59:40 PM Date of Report: 10/26/2020 Date of Procedure: 10/25/2020 Date of Receipt: 10/25/2020 Submitted by: MALCOLM CRUZ MD Location: [facility] Diagnostic interpretation performed at [facility], [address] [place] [address]. [place] Number: [id number] [facility]/ GROUP TESTon 92-96-0391ZMS [facility] Army Health CenterComment on above: Performed By: #### VERAB #### [facility] [address] [place], [place] [address]LP TYPEPositiveBayne Jones Army Community HospitalComment on above: Performed By: #### VERAB #### [facility] [address] [place], [place] [address]Aeemb Surgical Pathology Departmenton 50-20-0125Uftfi Surgical Pathology DepartmentName JUHI COPE Pathologist: ASHLEY HURTADO MD Date of Procedure: 09/01/2020 Date Received: 09/01/2020 Date Reported 09/03/2020 Submitting Physician: CHARLENE RODRIGUEZ D.O. Location: [facility] External # FINAL DIAGNOSIS [...] D. Right pelvic sidewall peritoneum are 2 jswy-amk-ycy, irregular fragments of tissue measuring 1.3 x [...] in toto in one cassette. SB amisha/09/02/2020 [facility] Department of Pathology [address] [place], [place] [address]MdlssgPRCritical access hospitalComment on above:Performed By: #### [facility] #### [place] [facility] Pathology Department [address] [facility] [address]Rynpxaa and Physical - Surgery > 30 dayson 29-08-8370Lwokvbl and Physical - Surgery > 30 daysHistory [...] T&S: O+, COVID-19: negative OB Hx: None. Farm Butcher Hx: As above. PMHx: endometriosis Surg Hx: diagnostic laparoscopy, appendectomy (2016) Meds: Meloxicam, Rich-Linyah, Norethindrone acetate Social Hx: No tobacco, no [...] the note. I personally evaluated the patient [id number]-5960 Attending Provider Inpatient Certification StatementObservation patient/other outpatient visits Electronic Signatures: Charlene Rodriguez () (Signed 01-Sep-2020 10:04) Authored: Note Completion Co-Signer: History of Present Illness, Home Medication Review, Impression/Procedure, ERAS, Physical Exam, Consent, Note Completion Chelsie Leal ( (Resident)) (Signed 31-Aug-2020 15:44) Authored: History of Present Illness, Home Medication Review, Impression/Procedure, ERAS, Physical Exam, Consent, Note Completion Last Updated: 01-Sep-2020 10:04 by Charlene Rodriguez ()[facility] Community HospitalHomegoing Instructionson 13-81-4479Lsjmrdqoh InstructionsAdditional Instructions: Handouts Given: Topic 1Anesthesia Homegoing Instructions Topic 2Surgical Site Infection Handout Topic 3New Medication Education Topic 4Suggamedex handout Electronic Signatures: Aminata Gomez (DIALLO) (Signed 01-Sep-2020 16:07) Authored: Additional Instructions Last Updated: 01-Sep-2020 16:07 by Aminata Gomez (DIALLO)[facility] Community HospitalPatient Profile - Preop v2on 62-64-2129Azocfjr Profile - Preop h6Prrvczg: Initial Info: How to be Addressedalexis Spoken Language PreferredEnglish Are you currently using the Personal Electronic Health Record or [employer] Stated Reason for Admissionseeing if my endometriosis is back Primary Contact Name and Numberlogan [phone] Patient Belongingsclothing locker glasses with bf Medications Brought to Hospitalno General Health: Weight in kg55.6 kilogram(s) Weight in vmp531.5 pound(s) Weight Methodactual (measured) Scale Typestanding Height [...] Arrangementshouse Lives Withparent(s) Resource/Environmental Concernsnone Anticipated Transition [facility] Anticipated at Transitionnone Substance: Current or [...] Learning Preferencesverbal instruction Cultural Considerationsnone Developmental Considerationsnone Anglican Considerationsnone Other learner availableno Falls RiskPatient location [...] Physical - Surgery > 30 days 01-Sep-2020 03:42[facility] Community HospitalPreop Checkliston 86-20-2184Yqenj Checklist Preop Checklist: Preop Checklist: Arrival Duda35-Zdy-8321 Arrival Time12:30 Procedure Typelaparoscopic endometriosis excision NPO Ocisls47-Pij-3153 00:00 ID Band Onyes Allergy Bandno known [...] Last Updated: 01-Sep-2020 12:35 by Sierra Kraft (RN)[facility] Community HospitalANTIBODY IDENT.on 24-97-5233EFKWGAHK IDENT.SEE BELOWNormCritical access hospitalComment on above:Result Comment: NO CLINICALLY SIGNIFICANT ANTIBODIES IDENTIFIED.Performed By: #### ABID #### [facility] [address] [place], [place] [address]UJTld 16-14-8131Hgeqevgbamk distribution width (RBC) [Ratio] 12.1 %Escdol51.5 - 14.5Saint Michael's Medical CenterComment on above:Performed By: #### CBC #### [facility] [address] [place], [place] [id number] (Bld) [Volume fraction]39.6 %Fpiazk11.0 - 46.0Saint Michael's Medical CenterComment on above:Performed By: #### CBC #### [facility] [address] [place], [place] [id number] (Bld) [Mass/Vol]12.6 g/kCVbcbvk09.0 - 16.0Saint Michael's Medical CenterComment on above:Performed By: #### CBC #### [address] [id number] (RBC) [Mass/Vol]31.8 g/dLLow32.0 - 36.0Saint Michael's Medical CenterComment on above:Performed By: #### CBC #### [address] [id number] (RBC) [Entitic vol]90 gQTvrdks23 - 100Saint Michael's Medical CenterComment on above:Performed By: #### CBC #### [address] [id number] (Bld) [#/Vol]333 10*3/yUYaiqos832 - 450Saint Michael's Medical CenterComment on above:Performed By: #### CBC #### [address] [id number] x10E12/LNormal4.00 - 5.20[facility] Comment on above:Performed By: #### CBC #### [address] [id number] (Bld) [#/Vol]5.6 10*3/uLNormal4.4 - 11.3Saint Michael's Medical CenterComment on above:Performed By: #### CBC #### [address] [id number] 2019, SCREEN ASYMPTOMATICon 70-57-1851EHXQ-CoV-2 (COVID-19) RNA TENA+probe Ql (Unsp spec)Not detectedNormalNot DetectedSaint Michael's Medical CenterComment on above:Result Comment: This assay [...] patient management decisions. Fact sheet for providers: https://www.fda.gov/media/367706/download Fact sheet for patients: https://www.fda.gov/media/948779/download This test has received FDA Emergency Use Authorization (EUA) and has been verified by [facility] ([facility]). This test is only authorized for the duration of time that circumstances exist to justify the authorization of the emergency use of in vitro diagnostic tests for the detection of SARS-CoV-2 virus and/or diagnosis of COVID-19 infection under section 564(b)(1) of the Act, 21 U.S.C. 360bbb-3(b)(1), unless the authorization is terminated or revoked sooner. [facility] is certified under CLIA-88 as qualified to perform high complexity testing. Testing is performed in the [facility] laboratories located at [address] [place] [address].Performed By: #### COVSC #### [place], [place] [address]Lab Specimen SourceNasal, NasopharyngealNoChildren's Hospital Colorado North CampusComment on above:Performed By: #### COVSC #### [place], [place] [address]TYPE + SCREENon 08-45-8952QFX [facility] MARI[facility] MEM[facility]IAL HOSPITALONoECU Health Medical CenterComment on above:Performed By: #### T+S #### [facility] [address] [place], [place] [address]HV TYPEPositiveBayne Jones Army Community HospitalComment on above: Performed By: #### T+S #### [facility] [address] [place], [place] [address]RIY TYPECanceledSt. Cloud HospitalComment on above:Order Comment: TEST TYPE + SCREEN WAS CANCELLED, 08/30/2020 13:37 JOP. Performed By: #### T+S #### [facility] [address] [place], [place] [address]GJ TYPECanceledNormHighlands Behavioral Health SystemComment on above:Order Comment: TEST TYPE + SCREEN WAS CANCELLED, 08/30/2020 13:37 JOP. Performed By: #### T+S #### [facility] [address] [place], [place] [address]PCSDuh 65-75-7238KLPFTtzlbmm:Juhi Cope MRN: Height:5' 2 (1.575 m) Weight:120 [...] for the following basenames: K,HCT Progress Notes ([facility] RE[facility] AV[facility]): Jaquelin Wesley Ma [...] 1 10 oz. Bottle of Magnesium Citrate (Lemon/[place]) ? A test for COVID 19 test [...] cooked potatoes; Special K, Rice Krispies or [place] Flakes cereals; ripe bananas; melons (except watermelon [...] carbonated beverages such as chi aislinn or lemon-northern arapaho soda; Gatorade? or other sports drinks (not [...] make sure you have a responsible adult carry all driver to take you home after procedure. Due to having sedation, you may not drive the rest of the day. ? If you need to reschedule, please call [phone] ?Date/Provider Dr Cruz Procedure:colonoscpy Facility:[facility] Prep ordered( if aware):miralax Knowledge of prep instructions:posted to [employer] Diabetic:no Blood Thinners:no Pacemaker with defibrillator:no left message for patient to return call. Nurse triage please give below message. PLEASE READ PATIENT INSTRUCTIONS BELOW. THANK YOU.[facility] on [id number] ID: [id number] Author: Leon Perkins (Rt) Fito Blanchard Service: Radiology Author Type: Credit Specialist Type: Progress Notes Filed: 07/29/2020 11:06 [...] Daya July 29, 2020 11:01 [facility]XR A[facility] 2V SUPINE W UPR/DECUB/CTLon 26-18-7064AV ABD 2V SUPINE W UPR/DECUB/CTL* * *Final [...] structures are normal. No other significant abnormality. Conservation Educator: DAVID Transcribe Date/Time: Jul 29 2020 11:19A Dictated by : LALI ORNELAS MD This examination was interpreted and the report reviewed and electronically signed by: LALI ORNELAS MD on Jul 29 2020 11:19AM EST [id number]_[facility] Vital Signs Date TimeVital SignValuePerforming PzpufiqdaWugwoywz98-48-1829 15:04-0500Body mass index (BMI) [Ratio]30.36 kg/c3Dxlju Kiesha DO Work Phone: [phone] [place], [place] [address]Iyqtsleczp52-78-5817 15:04-0500Body qgpzak71.3 kg Nathan Kiesha DO Work Phone: [phone] [address]-05-2025 15:04-0500Diastolic blood iysrcghj29 mm[Hg]Nathan Kiesha DO Work Phone: [phone] [place], [place] [address]Wyhmjnmhnd92-28-9505 15:04-0500Systolic blood qobxqjhi554 mm[Hg]Nathan Kiesha DO Work Phone: [phone] [place], [place] [address]0-22-2025 16:04-0400Body mass index (BMI) [Ratio]29.78 kg/f3Jewvr Kiesha DO Work Phone: [phone] [place], [place] [address]Pfzhytlqpn21-70-2557 16:04-0400Body odhjdk98.85 kgCorey Kiesha DO Work Phone: [phone] [place], [place] [address]Mhvpbbhjtu22-36-4519 16:04-0400Diastolic blood aulzmgcg15 mm[Hg]Nathan Kiesha DO Work Phone: 1(071)[facility] [place], [place] [address]Nwsmhvvxwn13-82-1916 16:04-0400Systolic blood bwwcehdd676 mm[Hg]Nathan Kiesha DO Work Phone: [phone] [address]-16-2025 10:34-0400Body mass index (BMI) [Ratio]29.26 kg/q9EbqnccrtMadhuri Monroy MD Work Phone: [facility]16-2025 10:34-0400Body atbfel96.58 kgMadhuri Monroy MD Work Phone: [phone])769-[address] [place], [place] 4371610-16-2025 10:34-0400Diastolic blood ralfgnws14 mm[Hg]Madhuri Monroy MD Work Phone: [phone] [place], [place] 0462610-16-2025 10:34-0400Systolic blood sljxyoyn842 mm[Hg]Madhuri Monroy MD Work Phone: [phone] [place], [place] 0462610-10-2025 14:48-0400Body neuisj475.5 cmMine Denise MD Work Phone: [phone] [place], [place] 0462610-10-2025 14:48-0400Body mass index (BMI) [Ratio]29.04 kg/e8TjywprMine Denise MD Work Phone: 1(419)[address] [place], [place] 0462610-10-2025 14:48-0400Body zfsoft17.03 kgMine Denise MD Work Phone: [phone] [place], [place] 0462610-10-2025 14:48-0400Diastolic blood isfuncrg71 mm[Hg]Mine Denise MD Work Phone: [phone] [place], [place] 0462610-10-2025 14:48-0400Heart rate 104 /minMine Denise MD Work Phone: [phone] [place], [place] 0462610-10-2025 14:48-0400Systolic blood bquvffvc845 mm[Hg]Mine Denise MD Work Phone: [phone] [place], [place] 0462610-09-2025 15:54-0400Body mass index (BMI) [Ratio]29.41 kg/n8VphlmibuSteph Keane POCKET CLOSER Work Phone: [phone] [place], [place] [address]Xbthuznslr42-48-2430 15:54-0400Body ckiebg43.94 kgSteph Keane POCKET CLOSER Work Phone: [phone] HospitalUkrktspytm84-96-1316 15:54-0400Diastolic blood sutgcxkl22 mm[Hg]Steph Keane POCKET CLOSER Work Phone: 1(615)637-[facility] HospitalYhcdatqclq66-58-4266 15:54-0400Systolic blood pttontmc843 mm[Hg]Steph Keane POCKET CLOSER Work Phone: [facility] HospitalCbvpvktuqy17-78-0746 15:37-0400Body mass index (BMI) [Ratio]29.23 kg/q7PkznunozSteph Keane POCKET CLOSER Work Phone: [facility] HospitalDvlggkwfwn82-24-9499 15:37-0400Body jelkqb57.48 kgSteph Rickettserly POCKET CLOSER Work Phone: [facility] HospitalUyppnqsdyf09-91-9763 15:37-0400Diastolic blood rpqptgiv10 mm[Hg]Steph Keane POCKET CLOSER Work Phone: [facility] HospitalFvdsglphnp89-85-7134 15:37-0400Systolic blood xwpvxcyq634 mm[Hg]Steph Rickettserly POCKET CLOSER Work Phone: [facility] HospitalHrugicncpr44-94-4553 15:55-0400Body mass index (BMI) [Ratio]29.45 kg/c8WmjdqcTeena Sarmiento RN Work Phone: [phone] [place], [place] 4371609-29-2025 15:55-0400Body aayfdk74.03 kgTeena Sarmiento RN Work Phone: [phone])770-[address] [place], [place] 9745809-17-2025 14:32-0400Body mass index (BMI) [Ratio]27.82 kg/c1Ozayv Kiesha DO Work Phone: [facility] HospitalIazcpdzxll52-02-7083 14:32-0400Body rhvgob78 kg Nathan Kiesha DO Work Phone: [facility] HospitalNezxjzjlgz69-65-0299 14:32-0400Diastolic blood bkxtijft66 mm[Hg]Nathan Kiesha DO Work Phone: [place] [address]Bsvvxiragr62-32-5164 14:32-0400Systolic blood mm[Hg]Nathan Kiesha DO Work Phone: [facility] HospitalGoxlybxzdo38-30-3983 15:36-0400Body fjektm889.5 cmGeorge Kageovanian DO Work Phone: NOUniversity HospitalKiykjujqhk99-22-5774 15:36-0400Body mass index (BMI) [Ratio]27.62 kg/r1Unxefcsherita Beltran DO Work Phone: SRUniversity HospitalLdhztcspgf97-17-7642 15:36-0400Body temperature 97.11 [degF]Eliceo Beltran DO Work Phone: NOUniversity HospitalFyepsxswzj13-54-2369 15:36-0400Body txnear48.49 kgGeorsherita Beltran DO Work Phone: LTUniversity HospitalWcewjacagp99-80-7781 15:36-0400Diastolic blood swcsimgk35 mm[Hg]Eliceo Beltran DO Work Phone: GQUniversity HospitalKcyaqnxbmh55-28-7609 15:36-0400Heart rate97 /min Eliceo Beltran DO Work Phone: [facility] HospitalVjfoettuam79-21-5570 15:36-8539RfR1% (BldA) [Mass fraction]98 %Eliceo Beltran DO Work Phone: TWUniversity HospitalOrsshvcgic61-63-9060 15:36-0400Systolic blood twpeybpz927 mm[Hg]Eliceo Beltran DO Work Phone: [facility] HospitalFalgtqvfwk71-54-4766 15:42-0400Body mass index (BMI) [Ratio]26.48 kg/f8Rzqpk Fazio DO Work Phone: [facility] HospitalZnoxzjquyl89-07-8870 15:42-0400Body txycng51.68 kgCorepearl Cabrerao DO Work Phone: [facility] HospitalXtanxznlst66-68-0700 15:42-0400Diastolic blood taqufdch75 mm[Hg]Nathan Cabrerao DO Work Phone: [facility] HospitalWbruhpjulp67-32-2728 15:42-0400Systolic blood rvjjowhf953 mm[Hg]Nathanpearl Cabrerao DO Work Phone: [facility] HospitalAacuenjuno44-92-6941 14:33-0400Body mass index (BMI) [Ratio]26.73 kg/s3Bcuyp Kiesha DO Work Phone: [facility] HospitalXcokewirwn31-16-4850 14:33-0400Body cpsifk62.28 kgCorey Kiesha DO Work Phone: [facility] HospitalLotzfqpaad40-91-0247 14:33-0400Diastolic blood hbfsqhuq36 mm[Hg]Nathan Kiesha DO Work Phone: 1(151)134-[address] [place], [place] [address]Yokwnzncty76-33-6765 14:33-0400Systolic blood mmyqszsm639 mm[Hg]Nathan Kiesha DO Work Phone: 1(639)796-[address] [place], [place] [address]Hlxhehkiaa39-57-5238 14:45-0400Body mass index (BMI) [Ratio]25.24 kg/z6Wkhwq Kiesha DO Work Phone: 1(112)343-[address] [place], [place] [address]Ohdaihmsun99-71-5342 14:45-0400Body fjatmi68.6 kg Nathan Kiesha DO Work Phone: 1(170)567-[address] [place], [place] [address]Xckbmgnysy69-06-2396 14:45-0400Diastolic blood eongfioy70 mm[Hg]Nathan Kiesha DO Work Phone: 1(053)687-[address] [place], [place] [address]Cqzsqaxsxk35-17-2967 14:45-0400Systolic blood dzbgosft478 mm[Hg]Nathan Kiesha DO Work Phone: 1(692)740-[address] [place], [place] [address]Aipgmrjcvl33-69-0322 10:29-0400Body mass index (BMI) [Ratio]25.68 kg/m2[facility]06-06-2025 10:29-0400Body .69 kgRank[facility]02-24-2025 15:08-0500Body mass index (BMI) [Ratio]25.99 kg/i9Gerno Kiesha DO Work Phone: 1(129)281-[address] [place], [place] [address]Cyfspsqigu14-38-6325 15:08-0500Body .47 kgCorey Kiesha DO Work Phone: 1(515)683-[address] [place], [place] [address]Osddpjgixr11-52-3101 15:08-0500Diastolic blood mm[Hg]Nathan Kiesha DO Work Phone: 1(744)216-[address] [place], [place] [address]Itngnbzsyf05-67-0059 15:08-0500Systolic blood ifjmqlhc509 mm[Hg]Nathan Kiesha DO Work Phone: 1(747)854-[address] [place], [place] [address]Mfiwzelzpm24-58-3506 15:53-0500Body zwalbr770.5 cmGemartha Beltran DO Work Phone: noUniversity HospitalMxtdgoajak73-46-8031 15:53-0500Body mass index (BMI) [Ratio]25.61 kg/d2Iimwvjmartha Beltran DO Work Phone: noUniversity HospitalMzfmfoiutg77-04-1747 15:53-0500Body temperature 97.11 [degF]Eliceo Beltran DO Work Phone: noUniversity HospitalDpgzksddsh91-62-1842 15:53-0500Body .5 kg Eliceo Beltran DO Work Phone: noUniversity HospitalXtlmealxxn16-46-6277 15:53-0500Diastolic blood vtylxuaj01 mm[Hg]Eliceo Beltran DO Work Phone: noUniversity HospitalRjmgzwobuz43-34-7564 15:53-0500Heart rate51 /min Eliceo Beltran DO Work Phone: noUniversity HospitalAcmmihzklj06-39-5625 15:53-2512FmO4% (BldA) [Mass fraction]98 %Eliceo Beltran DO Work Phone: noUniversity HospitalKpcvapmrzl78-16-6926 15:53-0500Systolic blood mm[Hg]Eliceo Beltran DO Work Phone: noUniversity HospitalSgjmksbcnn78-10-6355 11:15-0400Body mass index (BMI) [Ratio]25.97 kg/y1Pztyb Fazio DO Work Phone: [facility] HospitalBvpckffnes77-03-7591 11:15-0400Body .41 kgNathan Pop DO Work Phone: NOUniversity HospitalAdklqvprtt43-64-5842 11:15-0400Diastolic blood dhcyyzol70 mm[Hg]Nathan Pop DO Work Phone: [facility] HospitalOufjvuwsrf51-80-3599 11:15-0400Systolic blood rjeytddn224 mm[Hg]Nathan Pop DO Work Phone: noUniversity HospitalWdmcorbevx57-05-7063 10:02-0400Body mass index (BMI) [Ratio]25.39 kg/k5Wmthi Kiesha DO Work Phone: [phone] [place], [place] [address]Gzuycnwnwh25-13-5433 10:02-0400Body rcxuex51.96 kgCorey Kiesha DO Work Phone: 1(402)[facility] [place], [place] [address]Yjmmcvmvle07-71-7019 10:02-0400Diastolic blood ehthfilo53 mm[Hg]Nathan Kiesha DO Work Phone: 1(516)509-[address] [place], [place] [address]Dcaehfnokw65-04-4217 10:02-0400Systolic blood mjifxqsq063 mm[Hg]Nathan Kiesha DO Work Phone: 1(422)[facility] [place], [place] [address]Uzgjespsgz46-92-9143 10:55-0500Body mass index (BMI) [Ratio]28.17 kg/q1Xutip Kiesha DO Work Phone: 1(690)[facility] [place], [place] [address]Vtufbmhmiu70-47-3681 10:55-0500Body jltelp15.85 kgCorey Kiesha DO Work Phone: 1(977)[facility] [place], [place] [address]Hnuupxliuf88-35-4866 10:55-0500Diastolic blood chbifdfh18 mm[Hg]Nathan Kiesha DO Work Phone: 1(095)[facility] [place], [place] [address]Zumhypysrd18-69-1170 10:55-0500Systolic blood olbjqpep101 mm[Hg]Nathan Kiesha DO Work Phone: 1(776)[facility] [place], [place] [address]Boyrlkktkr52-41-5344 17:31-0400Body temperature 98.96 [degF][place] [facility]10-18-2023 17:31-0400 Diastolic blood wcdzxjyb79 mm[Hg][place] [facility]10-18-2023 17:31-9923JHN4 99 %[place] [facility]10-18-2023 17:31-0400Heart oall696 /minV[place] [facility]10-18-2023 17:31-0400 Respiratory rate16 /minV[place] [facility]10-18-2023 17:31-0400 Systolic blood vdmablmi220 mm[Hg][place] [facility]06-06-2023 10:55-0400Body wjzxyj474.5 cmErin Reaper CERTIFIED TUMOR REGISTRAR.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 TEACHER Work Phone: [phone] Swtybf02-86-1629 10:55-0400Body ekjqvb71.86 kgErin Reaper CERTIFIED TUMOR REGISTRAR.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 TEACHER Work Phone: [phone] Bxldff43-11-0213 10:55-0400Diastolic blood uwjabsli66 mm[Hg]Jihan Reaper CERTIFIED TUMOR REGISTRAR.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 TEACHER Work Phone: [phone] Omrpep67-55-8029 10:55-0400Systolic blood mm[Hg]Jihan Reaper CERTIFIED TUMOR REGISTRAR.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 TEACHER Work Phone: [place] Grlrmi62-21-1809 19:18-0500Diastolic blood mm[Hg][facility]03-08-2023 19:18-0500Heart rate98 /min[facility]03-08-2023 19:18-0500Nursing Progress Note ReasonOther: this RN discharged pt. pt verbalizes understanding and denies questiosn prior to discharge.[facility]03-08-2023 19:18-0500Respiratory rate16 /min[facility]03-08-2023 19:18-2310CsQ0% (BldA) [Mass fraction]100 %[facility]03-08-2023 19:18-0500 Systolic blood yueevvaw480 mm[Hg][facility] 01-31-2023 18:00-0500Diastolic blood smstlvru04 mm[Hg][facility]03-08-2023 18:00-0500Heart obal646 /min[facility]03-08-2023 18:00-0500Mean blood mm[Hg][facility]03-08-2023 18:00-1159XaC4% (BldA) [Mass fraction]99 %[facility]03-08-2023 18:00-0500 Systolic blood xiitfkmb715 mm[Hg][facility] 01-31-2023 17:00-0500Diastolic blood tlnnkban59 mm[Hg][facility]03-08-2023 17:00-0500Mean blood tuzglvbe362 mm[Hg][facility]03-08-2023 17:00-0500Systolic blood pressure 117 mm[Hg][facility]03-08-2023 16:38-0500Heart vxdg451 /min[facility]03-08-2023 16:38-0500Mean blood mm[Hg][facility]03-08-2023 16:38-0500Respiratory rate18 /[facility] 01-31-2023 13:49-0500Body czrcfgodsyk63.88 [degF][facility]03-08-2023 13:49-0500Heart bxrc892 /min[facility]02-04-2023 14:55-0500Body .88 [degF][facility]02-04-2023 14:55-0500Diastolic blood xfeyxlyp23 mm[Hg][facility]02-04-2023 14:55-0500Heart rate84 /min[facility]02-04-2023 14:55-0500Mean blood bqlokczs595 mm[Hg][facility]02-04-2023 14:55-0500Respiratory rate20 /min[facility]02-04-2023 14:55-0280LbT3% (BldA) [Mass fraction]98 %[facility]02-04-2023 14:55-0500Systolic blood pressure 137 mm[Hg][facility]02-04-2023 14:35-0500Body owbosimodnc93.88 [degF][facility]02-04-2023 14:35-0500Diastolic blood qgbcidew67 mm[Hg][facility]02-04-2023 14:35-0500Heart rate82 /min[facility]02-04-2023 14:35-0500Mean blood mm[Hg][facility]02-04-2023 14:35-0500Respiratory rate16 /min[facility]02-04-2023 14:35-5844QgT5% (BldA) [Mass fraction]97 %[facility]02-04-2023 14:35-0500Systolic blood qvloestv232 mm[Hg][facility]02-04-2023 13:35-0500Body yyypdqtjaau82.88 [degF][facility]02-04-2023 13:35-0500Diastolic blood mluywhda13 mm[Hg][facility]02-04-2023 13:35-0500Heart rate80 /min[facility]02-04-2023 13:35-0500Mean blood wefjlvvx29 mm[Hg] [facility]02-04-2023 13:35-0500Respiratory rate 17 /min[facility]02-04-2023 13:35-7082YmO6% (BldA) [Mass fraction]96 %[facility]02-04-2023 13:35-0500Systolic blood hobacejs384 mm[Hg][facility]02-04-2023 13:00-0500Respiratory rate12 /min[facility]02-04-2023 12:55-0500Respiratory rate9 /min[facility]02-04-2023 12:50-0500Respiratory rate10 /min[facility]02-04-2023 08:15-0500Body lzlarcqmseh67.24 [degF] [facility]02-04-2023 08:15-0500Heart nlmo893 /min[facility]01-07-2023 13:41-0500Body lpdfzlsques68.2 [degF]Kathe Ryder DO Work Phone: 1(853)774-[address] [place], [place] [address]Pewspx11-57-8332 13:41-0500Diastolic blood dxuaoxxt13 mm[Hg]Kathe Ryder DO Work Phone: [facility] CenterEftbkg63-11-5986 13:41-0500Heart ymdv241 /min Kathe Ryder DO Work Phone: [phone] CenterJovxpt27-13-5195 13:41-0500Respiratory rate18 /minKathe Ryder DO Work Phone: [facility] CenterDjtjqp54-40-0337 13:41-2900YqZ7% (BldA) [Mass fraction]99 %Kathe Ryder DO Work Phone: [facility] CenterRuyfad94-25-3724 13:41-0500Systolic blood tpgnpnay209 mm[Hg]Kathe Ryder DO Work Phone: [facility] CenterDewdja59-73-0378 00:45-0500Body .5 cm Kathe Ryder DO Work Phone: [facility] CenterLfkvgd13-79-0456 00:45-0500Body mass index (BMI) [Ratio]25.61 kg/p1HgysotiygKathe Ryder DO Work Phone: [facility] CenterEqtpag52-76-7895 00:45-0500Body mirziu13.5 kg Kathe Ryder DO Work Phone: [facility] CenterGxtkec46-21-9283 22:26-0500Hourly Rounding Fredi KARASIK [address] [place], [place] [address]Comment on above:Result Comment: ensured that all pt belongings are sent with pt. pt has no questions or concerns. report given to EMS. pt stable and no s/s of distress. pt off unit to flvqiuyd45-63-3559 22:00-0500Diastolic blood eoodgqpe59 mm[Hg]Fredi KARASIK [address] [place], [place] 5604701-02-2023 22:00-0500Heart grzi456 /minGregory KARASIK [address] [place], [place] 5604701-02-2023 22:00-0500 Hourly RoundingGregory KARASIK [address] [place], [place] 5604701-02-2023 22:00-0500Mean blood npjgxoei992 mm[Hg]Fredi KARASIK [address] [place], [place] 5604701-02-2023 22:00-0500 Systolic blood jkebujcp502 mm[Hg]Fredi KARASIK [address] [place], [place] 5604701-02-2023 21:50-0500Blood Pressure LocationGregory KARASIK [address] [place], [place] 5604701-02-2023 21:50-0500 Diastolic blood exxvvaxc02 mm[Hg]Fredi KARASIK [address] [place], [place] 5604701-02-2023 21:50-0500Heart rdqg394 /minGregory KARASIK [address] [place], [place] 5604701-02-2023 21:50-0500 Hourly RoundingGregory KARASIK [facility]01-02-2023 21:50-0500Mean blood htjjjtsu819 mm[Hg]Fredi SCHUMACHERASIK [address] [place], [place] 5604701-02-2023 21:50-0500 Respiratory rate18 /minFredi SCHUMACHERASIK [address] [place], [place] 5604701-02-2023 21:50-7678LjQ6% (BldA) [Mass fraction]98 %Fredi SCHUMACHERASIK [address] [place], [place] 5604701-02-2023 21:50-0500 Systolic blood kjjhreof998 mm[Hg]Fredi KARASIK [address] [place], [place] 5604701-02-2023 21:37-0500Blood Pressure LocationGregrosa ABREUK [address] [place], [place] 5604701-02-2023 21:37-0500 Diastolic blood klyaznbi05 mm[Hg]Fredi SCHUMACHERASIK [address] [place], [place] 5604701-02-2023 21:37-0500Heart istb736 /minFredi ABREUK [address] [place], [place] 5604701-02-2023 21:37-0500Mean blood dspqutnw762 mm[Hg]Fredi SCHUMACHERASIK [address] [place], [place] 5604701-02-2023 21:37-2012QvY6% (BldA) [Mass fraction]97 %Fredi SCHUMACHERASIK [address] [place], [place] 5604701-02-2023 21:37-0500 Systolic blood wudgxytz950 mm[Hg]Fredi KARASIK [address] [place], [place] 5604701-02-2023 21:30-0500Blood Pressure LocationFredi SCHUMACHERASIK [address] [place], [place] 5604701-02-2023 21:30-0500Body .6 [degF]Fredi DORSEY [facility]01-02-2023 19:00-0500Body ccxfdmhgenk70.24 [degF]Fredi DORSEY [facility]01-02-2023 17:15-0500Body hrrtrmsxikc27.06 [degF]Fredi DORSEY [facility]01-02-2023 14:02-0500Heart rate99 /minFredi DORSEY [facility]08-19-2022 07:00-0400Body nnebfhmenry27.6 [degF]Kaylinn Dokken [address]08-19-2022 07:00-0400 Diastolic blood mm[Hg]Kaylinn Dokken [address]08-19-2022 07:00-0400Heart rate80 /minKaylinn Dokken [address] [place], [place] 9598308-19-2022 07:00-0400Mean blood muzajnmg40 mm[Hg]Kaylinn Dokken [address] [place], [place] 9598308-19-2022 07:00-0400 Respiratory rate17 /minKaylinn Dokken [address]08-19-2022 07:00-0400 Systolic blood mm[Hg]Kaylinn Dokken [address] [place], [place] 9598308-19-2022 06:07-0400Body xpfuckulxdv07.24 [degF]Kaylinn Dokken [address]08-19-2022 06:07-0400 Diastolic blood bepiwrax11 mm[Hg]Kaylinn Dokken [address] [place], [place] 9598308-19-2022 06:07-0400Heart rate90 /minCharlotteylinn Dokken [address]08-19-2022 06:07-0400 Respiratory rate18 /minCharlotteylinn Dokken [address] [place], [place] 9598308-19-2022 06:07-7262HxI2% (BldA) [Mass fraction]100 %Kumar Villagomez [address]08-19-2022 06:07-0400 Systolic blood lvoovnpx345 mm[Hg]Beatrisn Yulyen [address] [place], [place] 9598308-19-2022 05:30-0400 Hourly RoundingCorey KIESHA [address] [place], [place] [address]Comment on above:Result Comment: Pt discharged per physician orders. Pt ambulates off unit with a steady gtzw84-60-1164 05:15-0400Diastolic blood mmzgivfq77 mm[Hg]Nathan KIESHA [address] [place], [place] 5604708-19-2022 05:15-0400Heart aanx080 /minCorey KIESHA [address] [place], [place] 5604708-19-2022 05:15-0400 Hourly RoundingCorey KIESHA [address] [place], [place] 5604708-19-2022 05:15-0400Mean blood gtydpadf99 mm[Hg]Nathan KIESHA [address] [place], [place] 5604708-19-2022 05:15-0400 Respiratory rate18 /minCorey KIESHA [address] [place], [place] 5604708-19-2022 05:15-0400 Systolic blood xcwxwesj505 mm[Hg]Nathan KIESHA [address] [place], [place] 5604705-24-2022 11:00-0400Body .02 cmCameron Edward Other [facility] Other 05-24-2022 11:00-0400Body mass index (BMI) [Ratio] 23.03 kg/h9Kcjletg Bharat Matrimonytty Other [facility] [employer] Other 05-24-2022 11:00-0400Body .97 kgCamerojunior Loratty Other [facility] [employer] Other 03-17-2022 11:41-0400Body ijjgax205.48 cmMegan Billow DO Work Phone: [phone]-MODUU[address] Work Phone: [phone] 11:41-0400Body mass index (BMI) [Ratio] 24.51 kg/g7Zvpmv Billow DO Work Phone: MK-YBPAN[address] Work Phone: [phone] 11:41-0400Body surface area Derived from formula1.61 g7Ejnzw Billow DO Work Phone: WN-QIBJF[address] Work Phone: [phone] 11:41-0400Body jvqiyx32.78 kgMegan Billow DO Work Phone: QP-GFMHM[address] Work Phone: [phone] 11:41-0400Diastolic blood jizdffzs50 mm[Hg] Charlene Billow DO Work Phone: MK-GBTBK[address] Work Phone: [phone] 11:41-0400Systolic blood yqixbfmj646 mm[Hg] Charlene Billow DO Work Phone: GM-SSBPR[address] Work Phone: [phone] 11:41-87774 1Megan Billow DO Work Phone: XM-DBTQR-[address] Work Phone: Comment on above:KSYDERIQUnptAztyt21-63-8752 14:53-0400Body .48 cmMegan Billow DO Work Phone: DV-GYFWW[address] Work Phone: [phone] 14:53-0400Body mass index (BMI) [Ratio] 21.77 kg/i8Mafzw Billow DO Work Phone: IZ-HDDIJ[address] Work Phone: [phone] 14:53-0400Body surface area Derived from formula1.53 u8Hovkj Billow DO Work Phone: XD-AIYHE[address] Work Phone: [phone] 14:53-0400Body zphyul27.98 kgMegan Billow DO Work Phone: PE-YRGQM[address] Work Phone: [phone] 14:53-0400Diastolic blood dikpxkpa82 mm[Hg] Charlene Billow DO Work Phone: RD-IKEDK[address] Work Phone: [phone] 14:53-0400Heart zbdj221 /minMegan Billow DO Work Phone: VC-ATZSJ[address] Work Phone: 1([phone] 14:53-0400Systolic blood givhgwpd260 mm[Hg] Charlene Billow DO Work Phone: [facility]IN[address] Work Phone: [phone] 14:53-55322 1Megan Billow DO Work Phone: [facility]QHSSQ[address] Work Phone: Comment on above:GRAVPARAPainScale Encounters Encounter DateEncounter [facility] ProviderFacilityStart: 10-06-2025 End: 24-37-4264Scdzdh outpatient visit 25 minutesColleen E Matthias CLAYTON Work Phone: [phone]-Brrhv Medicine at [facility] Comment on above:Insulin controlled gestational diabetes mellitus (GDM) in third trimester (Primary Dx); Essential hypertension affecting in third trimesterStart: 10-06-2025 End: 67-03-1069jbnxeklsvnEHIHTOY E MATTHIASProMedica Wright-Patterson Medical Centertart: 10-05-2025 End: 96-96-3869Bnchoiphc encounterAnjana Davalos RNMaternal- [facility] at [facility] Centertart: 10-03-2025 End: 71-08-3709Wneirslfl Result EncounterSteph Keane NP Work Phone: noms External Department UnsolicitedStart: 10-03-2025 End: 51-88-1661Znbyuevgm Result EncounterSteph Keane NP Work Phone: noms External Department UnsolicitedStart: 09-30-2025 End: 49-98-3816Qwqgtrur flow sheetCorey Kiesha DO Work Phone: noms Patti OBGYNComment on above:Third trimester ([facility]); 31 weeks gestation of ([facility]); Pre-eclampsia in third trimester ([facility])Start: 09-30-2025 End: 55-30-5361wutjzrmbezNXROM FAZIONot AvailableStart: 09-30-2025 End: 80-06-0513Ohvfwe flowsheetCorey Kiesha DO Work Phone: noMS North OBGYNStart: 09-30-2025 End: 28-73-7688Yfrazc flowsheetCorey Kiesha DO Work Phone: NOMS Patti OBGYNStart: 09-28-2025 End: 98-23-4040Mwhuus OnlyChivo Springer PA-C Work Phone: [phone]-Zljjr Medicine at [facility] Comment on above:Essential hypertension affecting in third trimester Start: 09-26-2025 End: 53-74-2405Pgeslqeee Result EncounterSteph Keane NP Work Phone: noms External Department UnsolicitedStart: 09-26-2025 End: 72-31-1586Amicldhdv Result EncounterSteph Keane NP Work Phone: noms External Department UnsolicitedStart: 09-21-2025 End: 66-79-8573vhuigpfytsDmrrdnr E Lavoy PA-C Work Phone: [phone]-Xtwxk Medicine at [facility] Comment on above:Insulin controlled gestational diabetes mellitus (GDM) in third trimester (Primary Dx); Essential hypertension affecting in third trimesterStart: 09-21-2025 End: 91-66-2332Bsmkpbsxf encounterVerito EDOUARD Work Phone: [phone]-Puakx Medicine at [facility] Start: 09-19-2025 End: 92-75-3525Vcgalrcao Result EncounterSteph Keane NP Work Phone: noms External Department UnsolicitedStart: 09-19-2025 End: 50-71-0805Karzlatwh Result EncounterSteph Keane NP Work Phone: noms External Department UnsolicitedStart: 09-17-2025 End: 08-09-0185Yvhykt Breanna CAGE Work Phone: [phone]-Hasal Medicine at [facility] Comment on above:Essential hypertension affecting in third trimester Start: 09-16-2025 End: 30-79-0793fmmtkcvzgeCLRBS FAZIONot AvailableStart: 09-16-2025 End: 57-39-5316Vvkitcwc flow sheetCorey Kiesha DO Work Phone: noms Patti OBGYNComment on above:29 weeks gestation of ([facility]); Third trimester ([facility]); Hypertension affecting , antepartum ([facility]); Gestational diabetes mellitus (GDM), antepartum, gestational diabetes method of control unspecified([facility])Start: 09-16-2025 End: 08-69-7046Wwmmes flowsheetCorey Kiesha DO Work Phone: NOMS [place] OBGYNStart: 09-16-2025 End: 44-88-4382Busash flowsheetCorey Kiesha DO Work Phone: N[facility] [place] OBGYNStart: 09-16-2025 End: 92-14-4786Hzfgeiffe Nirmal Harris [facility]: 09-15-2025 End: 54-90-7349OvkiazMika Springer PA-C Work Phone: [phone]-Sryqr Medicine at [facility] Comment on above:Essential hypertension affecting in third trimester Start: 09-10-2025 End: 53-11-0729Bzpqys outpatient visit 25 minutesMadhuri Monroy MD Work Phone: [facility] Medicine [place]Comment on above: 28 weeks gestation of (Primary Dx); Insulin controlled gestational diabetes mellitus (GDM) in second trimester; Essential hypertension affecting in third trimesterStart: 09-10-2025 End: 91-61-2248mkttmrrrrrKYKMBOCT P DOCHEVALouis [facility] Start: 09-04-2025 End: 76-02-9997Drjzad consultation new/estab patient 60 Annlaee Denise MD Work Phone: [phone]-Qenhq Medicine at [facility] Comment on above:Diet controlled gestational diabetes mellitus (GDM) in second trimester (Primary Dx); Essential hypertension affecting in third trimesterStart: 09-04-2025 End: 43-60-5161rvzvyyuhtwAALMNRNona McUniversity Hospitals Geneva Medical Centertart: 09-03-2025 End: 53-18-5929Kewvnoch flow sheetSteph Keane POCKET CLOSER Work Phone: NOBZ Patti OBGYNComment on above:Hypertension affecting , antepartum ([facility]) (Primary Dx); 27 weeks gestation of ([facility]-H[facility]); Second trimester ([facility])Start: 09-03-2025 End: 99-81-6890zyohncksujDRENZELS EBERLYNot AvailableStart: 09-03-2025 End: 55-07-7088Qkwqkl flowsheetSteph Keane POCKET CLOSER Work Phone: [facility] OBGYNStart: 09-03-2025 End: 14-68-7308Wnfabjwas Result EncounterCorey Kiesha DO Work Phone: noms External Department UnsolicitedStart: 09-03-2025 End: 18-60-0004Qdgpicvkb Result EncounterCorey Kiesha DO Work Phone: noms External Department UnsolicitedStart: 09-01-2025 End: 91-19-8688Zplukglyz encounterCha Harris RNMaternal- Medicine at [facility] Centertart: 08-29-2025 End: 07-05-7731Pfahbjesc Result EncounterSteph Keane NP Work Phone: noms External Department UnsolicitedStart: 08-29-2025 End: 40-23-0540Atookehcc Result EncounterSteph Keane NP Work Phone: noms External Department UnsolicitedStart: 08-27-2025 End: 22-67-1940gacpyqmcsqZUKEHHRX EBERLYNot AvailableStart: 08-27-2025 End: 69-08-6865Wjvmpsiq flow sheetSteph Keane POCKET CLOSER Work Phone: NOMS Patti OBGYNComment on above:26 weeks gestation of ([facility]); Second trimester ([facility]-HCC); induced hypertension, antepartum ([facility]-HCC); Gestational diabetes mellitus (GDM) in second trimester, gestational diabetes method of control unspecified ([facility]-HCC)Start: 08-27-2025 End: 17-57-5753Cncqrs flowsheetSteph Elsa POCKET CLOSER Work Phone: NOBX Patti OBGYNStart: 08-27-2025 End: 52-32-9356Qybhdr flowsheetSteph Keane POCKET CLOSER Work Phone: NOKI Patti OBGYNStart: 08-27-2025 End: 49-59-4629Zacazylka Result EncounterSteph Keane POCKET CLOSER Work Phone: noms External Department UnsolicitedStart: 08-25-2025 End: 96-28-9537Nsyzxceyx Result EncounterGeneric External Data ProviderNOMS External Department UnsolicitedStart: 08-25-2025 End: 20-42-7093Ogxhtkahu Result EncounterGeneric External Data ProviderNOMS External Department UnsolicitedStart: 08-24-2025 End: 62-35-5056nsahxgdpcvMkbogs M Frey RN Work Phone: [phone]-Vksvi Medicine at [facility] Comment on above:Gestational diabetes mellitus (GDM) in second trimester, gestational diabetes method of control unspecifiedStart: 08-21-2025 End: 52-97-4994Sjyko abstractingScanning Provider ExternalMaternal- Medicine at [facility] Centertart: 08-18-2025 End: 57-24-4427Arepk Aura Monroy MD Work Phone: [phone]-Vwxfl Medicine at [facility] Start: 08-15-2025 End: 24-19-5282simiwcrrvkLPJYSPUL EBERLYFacility:FTMCStart: 08-12-2025 End: 70-18-8534Modelpfh flow sheetCorey Kiesha DO Work Phone: noms North OBGYNComment on above:24 weeks gestation of ([facility]); Second trimester ([facility]); Elevated glucose tolerance testStart: 08-12-2025 End: 75-79-6532jnrpzceghjNTVNK FAZIONot AvailableStart: 08-12-2025 End: 47-07-1030njpnszotatMcchs Bryant MANISHAOFacility:FTMCStart: 08-01-2025 End: 87-12-2552gogyoaagqkS KENNETH BELTRANFacility:FTMCStart: 07-30-2025 End: 62-25-1342Alvvmya encounter statusGemartha Hurtado Ruby DO Work Phone: [facility] Work Phone: Start: 07-30-2025 End: 51-98-2535Qdhippct preventive med est patient 18-39 yrsGeorsherita Hurtado Charlottecarol DO Work Phone: noms [facility] 230Comment on above: Wellness examination (Primary Dx); Hypertension, unspecified type ; Lipid screeningStart: 07-30-2025 End: 18-39-5308hdutwcupftZGJIZX R KAFTANNot AvailableStart: 07-30-2025 End: 28-46-5578Geliyj flowsheetEliceo Hurtado Ruby DO Work Phone: noms [facility] 230Start: 07-30-2025 End: 20-62-7265Tulzmw flowsreynoldEliceo Hurtado Ruby DO Work Phone: noms [facility] 230Start: 07-15-2025 End: 06-95-0861Wrlohxoo flow sheetCorey Kiesha DO Work Phone: NOYI North OBGYNComment on above:20 weeks gestation of ([facility]); Second trimester ([facility]); Diabetes mellitus screeningStart: 07-15-2025 End: 25-76-5708nfeampkwwgHEFPI FAZIONot AvailableStart: 07-15-2025 End: 48-14-0815Okhgvyids Result EncounterCorey Kiesha DO Work Phone: NOTP External Department UnsolicitedStart: 07-15-2025 End: 58-06-6282Xszjwxmme Result EncounterCorey Kiesha DO Work Phone: NOMS External Department UnsolicitedStart: 06-22-2025 End: 27-60-4176Rolnolfp flow sheetCorey Kiesha DO Work Phone: NOYL North OBGYNComment on above:Sinusitis, unspecified chronicity, unspecified location (Primary Dx); Second trimester ([facility]); 17 weeks gestation of ([facility]); Screening, , for anatomic survey ([facility])Start: 06-22-2025 End: 56-57-6335etmoydvjllTZVGU FAZIONot AvailableStart: 06-22-2025 End: 87-42-4278Yhaviz flowsheetCorey Kiesha DO Work Phone: NOOB North OBGYNStart: 06-22-2025 End: 17-68-0600Mmlxhu flowsheetCorey Kiesha DO Work Phone: NOCP Patti OBGYNStart: 06-22-2025 End: 28-16-0302Cdfrwuvl Result EncounterCorey Kiesha DO Work Phone: NONH External Department UnsolicitedStart: 05-25-2025 End: 15-11-9470vwmjnlxdvnNEGRW FAZIONot AvailableStart: 05-25-2025 End: 34-13-2747Lpjrbfmv flow sheetCorey Kiesha DO Work Phone: NOOG BCP OBComment on above:Nonintractable episodic headache, unspecified headache type (Primary Dx); Second trimester ([facility]); 13 weeks gestation of ([facility])Start: 05-25-2025 End: 60-57-5043Qxkyio flowsheetCorey Kiesha DO Work Phone: NOMS BCP OBStart: 05-25-2025 End: 29-79-4487Dfkmtg flowsheetCorey Kiesha DO Work Phone: NOMS BCP OBStart: 05-04-2025 End: 95-15-6933Ygiefnpwv Result EncounterCorey Kiesha DO Work Phone: NOMS External Department UnsolicitedStart: 05-04-2025 End: 02-09-8543Iupmwkdqs Result EncounterCorey Kiesha DO Work Phone: noms External Department UnsolicitedStart: 05-01-2025 End: 57-82-0956Dhmdlvkwv Result EncounterCorey Kiesha DO Work Phone: noMS External Department UnsolicitedStart: 05-01-2025 End: 89-41-3090Rtghitels Result EncounterCorey Kiesha DO Work Phone: noms External Department UnsolicitedStart: 05-01-2025 End: 01-09-0410bvgldnmvqaINPIDB Jose Angel AvailableStart: 05-01-2025 End: 67-97-6051Ziqhtr outpatient visit 5 minutesNoms Bcp Ob Kiesha NurseNOMS BCP OBComment on above:GA: 8u3mSeonw: 03-13-2025 End: 89-88-6321bmglnabezfOosax R FAZIOFacility:FTMCStart: 03-13-2025 End: 86-39-4088Zgnuhtu encounter procedureCorey R KIESHA [facility] Start: 02-02-2025 End: 65-36-1706Labwbgm encounter procedureDenny Rodríguez MD Work Phone: [facility] [place] Work Phone: Start: 02-02-2025 End: 54-85-5554jolegzgyhcUiclj Baxter MD Work Phone: [facility] Work Phone: Start: 01-22-2025 End: 15-77-2514gtaqjixcvxQolrw R FAZIOFacility:FTMCStart: 01-22-2025 End: 41-48-1044Tfyyitc encounter procedureCorey R KIESHA [facility] Start: 01-19-2025 End: 36-81-0727Zztnkf outpatient visit 15 minutesCorey Kiesha DO Work Phone: noms BCP OBComment on above:Pain in female genitalia on intercourse; EndometriosisStart: 01-19-2025 End: 66-26-6490erplkxjkxrBEDDL FAZIONot AvailableStart: 01-19-2025 End: 31-48-9704Fpwbdm flowsheetCorey Kiesha DO Work Phone: NOMS BCP OBStart: 01-19-2025 End: 54-01-8319Hngalb flowsheetCorey Kiesha DO Work Phone: NOMS BCP OBStart: 12-30-2024 End: 29-32-5042jvkjnfoaapURCGZP R TREYANNot AvailableStart: 12-30-2024 End: 34-45-1862Yrwxpd outpatient visit 15 minutesGeorge R Charlottecarol DO Work Phone: NOW[facility] 230Comment on above:Hypertension, unspecified type (CMS/HCC) (Primary Dx); Paroxysmal tachycardia, unspecified (CMS/HCC); Chronic right shoulder pain; Scapular dyskinesisStart: 08-18-2024 End: 91-39-4595Ugoisk flowsheetCorey Kiesha DO Work Phone: noMS BCP OBStart: 08-18-2024 End: 02-42-3969Wqdrdv flowsheetCorey Kiesha DO Work Phone: noMS BCP OBStart: 08-18-2024 End: 61-86-7830Rewiutiyt Result EncounterCorey Kiesha DO Work Phone: noms External Department UnsolicitedStart: 08-18-2024 End: 12-15-3484Nhkjwkh encounter procedureCorey Kiesha DO Work Phone: [facility] Work Phone: Start: 08-18-2024 End: 80-93-4742Vyifuyxd preventive med est patient 18-39 yrsCorey Kiesha DO Work Phone: NOMS BCP OBComment on above:Well woman exam with routine gynecological examStart: 07-22-2024 End: 52-03-8246Vognbp flowsheetCorey Kiesha DO Work Phone: NOMS BCP OBStart: 07-22-2024 End: 10-00-0343Ojyziw flowsheetCorey Kiesha DO Work Phone: NOHD BCP OBStart: 07-22-2024 End: 31-71-4021Cipyzb outpatient visit 15 minutesCorey Kiesha DO Work Phone: NOMS BCP OBComment on above:Dysmenorrhea, unspecified Start: 95-48-4330Pdooupime encounterMegan Billow DO Work Phone: [facility] Hospitaltart: 50-31-8335Qbiijidrf encounterMegan Billow DO Work Phone: WFroedtert HospitalComment on above:Surgery CancelledStart: 02-13-2024 End: 28-38-7171Eopzljjnx Result EncounterCorey Kiesha DO Work Phone: NOWF External Department UnsolicitedStart: 02-13-2024 End: 33-75-3135Rhwarbfcw Result EncounterCorey Kiesha DO Work Phone: noms External Department UnsolicitedStart: 01-15-2024 End: 48-70-7856Hzeeegsfk Result EncounterCorey Kiesha DO Work Phone: noms External Department UnsolicitedStart: 01-15-2024 End: 39-67-3157Egatraliw Result EncounterCorey Kiesha DO Work Phone: noms External Department UnsolicitedStart: 01-10-2024 End: 82-92-8172Lycfob outpatient visit 15 minutesCorey Kiesha DO Work Phone: NOMS BCP OBComment on above:Menorrhagia with regular cycle; Pelvic pain in female; Uses controlStart: 38-60-4711KvdvujOuhmj Billow DO Work Phone: [facility] HospitalComment on above:Refill Request Start: 31-47-9128awvlxfrhqyBwpfr Billow DO Work Phone: Obstetrics/GynecologyComment on above:painStart: 12-10-2023 End: 63-90-4035wbyuwztyepVRBTK BILLOWFacility:[facility] Hospitaltart: 10-91-4882pzvkhcijehXgokx Billow DO Work Phone: REM PIRES MCStart: 85-54-1461Enfrdlg encounter procedureMegan Billow DO Work Phone: Obstetrics/GynecologyComment on above:office visit Start: 09-12-2023 End: 07-07-5790Nilxynnvf department patient Berny Loco [facility] Start: 92-21-1428Krwpzw pelvic examinationMegan Billow DO Work Phone: Obstetrics/GynecologyComment on above:Pelvic pain in female (Primary Dx)Start: 06-96-7080cxfjroyeouAhgbg Billow DO Work Phone: Obstetrics/GynecologyComment on above:painful periods Start: 08-24-2023 End: 05-00-6157Jodenl pelvic examinationErin Vicker CERTIFIED TUMOR REGISTRAR.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 TEACHER Work Phone: GynecologyComment on above:High-tone pelvic floor dysfunction (Primary Dx); Chronic pelvic pain in femaleStart: 08-24-2023 End: 39-42-6976Xuudnwiouebq consultation with Kelton Downs APRN.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 TEACHER Work Phone: [facility] MAINStart: 08-24-2023 End: 66-64-8061oyqmhyjisvGPTC REAPERFacility:[facility] HospitalStart: 02-44-8454upghokxqkdYmldq Billow DO Work Phone: Obstetrics/GynecologyComment on above:painful period Start: 78-46-1248Aieapjcjg encounterMegan Billow DO Work Phone: GynecologyComment on above:Insurance Authorization (Orilissa)Start: 07-16-2023 End: 26-37-2345kuawpjstcvLICBI BILLOWFacility:[facility] Hospitaltart: 06-12-2023 End: 04-08-9436stciyhprdsNTBSX BILLOWFacility:[facility] Hospitaltart: 06-12-2023 End: 80-89-8882Vchkhotjzs hospital visit by physicianandra [facility] Suki (I-Stat/1.5t) RadiologyComment on above:Pelvic and perineal pain [R10.2]Start: 05-17-2023 End: 44-38-8793Fcojcd pelvic examinationMegan Billow DO Work Phone: Obstetrics/GynecologyComment on above:Endometriosis (Primary Dx); Pelvic and perineal painStart: 05-17-2023 End: 41-86-9884Jintwvhyhdev consultation with kikaCharlene Rodriguez DO Work Phone: Dre [facility]ATEWKS[facility]OSPITALtart: 05-17-2023 End: 78-35-2798djdtrybovsKCWHY ALAN BAXTERFacility:[facility] Start: 42-07-4357Btnztasdd encounterMekevin Billfanny DO Work Phone: GynecologyComment on above:Vaginal BleedingStart: 05-01-2023 End: 44-71-2845ugpeyjsrmaXFIJSYang Stanleycility:[facility] Start: 05-01-2023 End: 18-38-3632Clcsflf encounter Lisa Downs APRN.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 TEACHER Work Phone: GynecologyComment on above:Chronic pelvic pain in female (Primary Dx); Constipation, unspecified constipation type; High-tone pelvic floor dysfunction; Diastasis of rectus abdominis; Dysmenorrhea; Other specified dyspareuniaStart: 67-86-1636jvnqvhlzjoQffmx Billow DO Work Phone: Obstetrics/GynecologyComment on above:painfulStart: 01-31-2023 End: 33-12-9919Rgkqpeixe department patient visitAstrit [facility]uc [facility] Start: 12-30-2022 End: 36-94-6689Jblgakh encounter procedureAstrit Phuc [facility] Start: 12-05-2022 End: 47-81-1713yfaadhltplTTHOPeaceHealth SHSStart: 12-05-2022 End: 77-09-0821Awkspw outpatient visit 15 minutesGin Leonorsrinath DAY Work Phone: [facility] HospitalComment on above:Pre- eclampsia, severe, delivered (Primary Dx)Start: 11-28-2022 End: 65-49-2069Ezzohwwcjj and management of inpatientHCA [facility] HospitalStart: 11-28-2022 End: 04-26-3029Bteayhvojw and management of inpatientCommunity Hospital Work Phone: [facility] POSTPARTUMComment on above:Preeclampsia, severe, third trimester (Primary Dx)Start: 11-28-2022 End: 43-26-8990Cmm-admission assessmentGregrosa DORSEY [facility] Start: 11-27-2022 End: 30-78-8807MS TriageGregroas DORSEY [facility] Start: 07-14-2022 End: 53-15-5404Nysjisigm department patient visitCharlotteshayjunior Villagomez [facility] Start: 07-14-2022 End: 17-47-0655WL TriageNathan POP [facility] Start: 04-25-2022 End: 97-19-4304Qrqfyrn encounter procedureCAMERON DITTY [facility] Start: 04-18-2022 End: 47-79-3379gifkqofdxnOfjzler Ditty Other [employer] Other Start: 52-25-0620Pxxoyiq encounter procedureCamdorene CarrilloyFPG GastroenterologyStart: 21-94-3408Csbjdl outpatient visit 15 minutes Charlene Rodriguez DO Work Phone: [phone]-SVWYP-[address] Work Phone: Start: 09-29-2021 End: 21-65-2246ticigepyauBUOSC ROWENA [facility] Centerpe[facility] HospitalStart: 09-29-2021 End: 40-49-6452wxfpgrbsclLBESR ROWENAAultman Hospital HospitalStart: 75-38-5841PROAOBayoy Billow DO Work Phone: [phone]-QMKEC-[address] Work Phone: Start: 83-98-4539UINYLGHFWG, Provider: Charlene Rodriguez, Status: Pen, Time: 2:45 Ina Chau MD Work Phone: [phone]-Rcehsys-[place] Work Phone: Start: 95-12-6542Dlekm Oswaldo Chau MD Work Phone: [phone]-Bamcagz-[place] Work Phone: Procedures DateProcedureProcedure DetailPerforming ClinicianStart: 06-16-5165AZ OB BPP W NON-STRESSKristina Elsa POCKET CLOSER Work Phone: Start: 99-75-3985Nvpxm dip stick/tablet rgnt non-auto w/o micrscpCorey Kiesha DO Work Phone: Start: 33-44-7662SY OB BPP W NON-STRESSKristina Elsa POCKET CLOSER Work Phone: Start: 68-38-0762EC OB BPP W NON-STRESSKristina Elsa POCKET CLOSER Work Phone: Start: 16-61-7147Fmfpz dip stick/tablet rgnt non-auto w/o micrscpCorey Kiesha DO Work Phone: Start: 61-89-2094IYW BUNCorey Kiesha DO Work Phone: Start: 71-21-8930TDF URIC ACIDCorey Kiesha DO Work Phone: Start: 56-62-1537YHZ ALTCorey Kiesha DO Work Phone: Start: 84-37-5824WZE ASTCorey Kiesha DO Work Phone: Start: 23-74-0755QTX CREATININECorey Kiesha DO Work Phone: Start: 63-66-0881SIY URINE T PROTEIN CREAT RATIOCorey Kiesha DO Work Phone: Start: 64-40-1673Dngpo dip stick/tablet rgnt non-auto w/o micrscpKristina Elsa POCKET CLOSER Work Phone: Start: 31-72-1959JUW TOTAL PROTEIN 24 HOUR URINE Generic External Data ProviderStart: 64-79-4141YC OB BPP W NON-STRESS Steph Elsa POCKET CLOSER Work Phone: Start: 13-66-9507ZWH URINE T PROTEIN CREAT RATIO Generic External Data ProviderStart: 64-67-7394OFU CBC WITH AUTO DIFFGeneric External Data ProviderStart: 44-11-9139Korwt dip stick/tablet rgnt non-auto w/o micrscpKristina Elsa POCKET CLOSER Work Phone: Start: 25-96-4268Gfulckic identified in Urine by CultureGeneric External Data ProviderStart: 48-17-3293Cgvgynf quantitative blood xcpt reagent stripNot In System Ref ProvStart: 01-00-2616QCCMKC HOUR GLUCOSE TOLERANCE 100 GM LOADNot In System Ref ProvStart: 11-71-3045Fnolw dip stick/tablet rgnt non-auto w/o micrscpCorey Kiesha DO Work Phone: Start: 56-61-2149DSU 1H POST 50G LOADNot In System Ref ProvStart: 19-43-9789JEP, SERUM, OPEN SPINA BIFIDACorey Kiesha DO Work Phone: Start: 97-72-8636Cynhs dip stick/tablet rgnt non-auto w/o micrscpCorey Kiesha DO Work Phone: Start: 19-06-2386WBXMZDWSE VAGINITIS (HTRX)Nathan Kiesha DO Work Phone: Start: 22-55-7074Uacyh dip stick/tablet rgnt non-auto w/o micrscpCorey Kiesha DO Work Phone: Start: 01-41-6409Bpgnq dip stick/tablet rgnt non-auto w/o micrscpCorey Kiesha DO Work Phone: Start: 27-40-8086Qmuknnxp screenMadhuri Monroy MD Work Phone: Start: 29-77-7010Gydi scrn 1+ class nonchromoNot In System Ref ProvStart: 15-55-3722Bfltfeqgpp glycosylated z8iNprnt R Kiesha DO Work Phone: Start: 69-47-5216Cueoklxys c antibodyNot In System Ref ProvStart: 44-28-3328XGD 1&2 AB/AG SCREEN (P24 AG)Not In System Ref ProvStart: 60-23-5658Xueq ia hepatitis b surface antigenNot In System Ref ProvStart: 70-08-6791JMJK AND SCREENNot In System Ref ProvStart: 20-10-9342VOU TESTCorey Kiesha DO Work Phone: Start: 59-21-4866Pdnic dip stick/tablet rgnt non-auto w/o micrscpCorey Kiesha DO Work Phone: Start: 64-60-9163WR OB TRANSVAGINALCorey Kiesha DO Work Phone: Start: 25-96-7941XIU,APTIMA HPV,AGE GDLNCorey Kiesha DO Work Phone: Start: 43-55-4722Ggugahfkbhb observation [Identifier] in Cervix by Cyto stainCorey Kiesha DO Work Phone: Start: 26-90-2173TZP 12-LEADCorey Kiesha DO Work Phone: Start: 62-18-3092KU PELVIS W/ TRANSVAGINALCorey Kiesha DO Work Phone: Start: 20-49-3089Cjnr cerv/vag auto thin layer prep mnl screenCorey Kiesha DO Work Phone: Start: 31-83-2340Air pelvis w/o & w/contrast material Charlene Billow DO Work Phone: Start: 12-60-5752Tfwdp count platelet automatedMichael O'Cormier CERTIFIED TUMOR REGISTRAR - INORGANIC CHEMISTRY PROFESSOR Work Phone: Start: 88-77-4238Npogg count platelet automatedCassie Constantino MD Work Phone: Start: 18-74-7490Pfdan streptococcus group b amplified probe tqCassie Constantino MD Work Phone: Start: 75-55-2904UZK and Rh group [Type] in Blood by Confirmatory Carmine Constantino MD Work Phone: Start: 66-72-0929Andhe typing serologic Cait Constantino MD Work Phone: Start: 45-71-6234Xgbcqrnwqnxhq metabolic panelCassie Constantino MD Work Phone: Start: 96-82-2549Pxvcwunk hiv-1&hiv-2 single result Megadyne [id number]: 63-41-8690Gzpy ia hepatitis b surface antigenMegaalexis [id number]: 01-56-7886MmjtpqvwocBHZHYKE EDWARD Start: 08-30-2020 End: 92-58-4141Hpehohkl screenComment on above:Performed By: #### T+S #### [facility] [address] [place], [place] [address]Znrbp Comment: TEST TYPE + SCREEN WAS CANCELLED, 08/30/2020 13:37 JOP.Performed By: #### T+S #### [facility] [address] [place], [place] [address]Lezzr: 87-12-8389PRMVX SHOULDER OPEN DISTAL CLAVICLE EXCISION 1CAM[facility]Atl[facility] Comment on above:RIGHT SHOULDER OPEN DISTAL CLAVICLE EXCISIONRIGHT SHOULDER OPEN DISTAL CLAVICLE EXCISIONAppendectomyCAMERON LOVEAtlantic Healthcare betamethasone (substance)Fredi WILLIAN comment on above:Dose #1: 11/27/22ColonoscopyCAMERON EDWARD Endoscope, device (physical object)[place]on [place]oco LaparoscopyTeri Chau MD Work Phone: Plan of Treatment DateCare ActivityDetailAuthorStart: 72-45-0357Yxlpzd Vaccines (1 of 2)Zoster Vaccines (1 of 2)[facility] HealthStart: 15-97-0257Egwpefrou for malignant neoplasm of cervixNOMS HealthcareStart: 47-31-0691Cwmomrigi for malignant neoplasm of cervixPap SmearNOMS HealthcareStart: 64-54-2728Ffznp BMI ScreeningAdult BMI ScreeningProMercy Health Kings Mills Hospitalca Health SystemStart: 68-08-2199Ezqwprr ScreeningTobacco ScreeningProMercy Health Kings Mills Hospitalca Health SystemStart: 34-20-7288Jazyv BMI ScreeningAdult BMI ScreeningProMercy Health Kings Mills Hospitalca Health SystemStart: 77-78-9489Hnjoi BMI ScreeningAdult BMI ScreeningProMedica Health SystemStart: 11-03-2025 End: 10-44-6287Yojicyi encounter udhymoucn74/09/2025 2:30 PM EST Office Visit [facility]- [facility] at [facility] [address] [place] [id number] Chivo Springer PA-C [address] [facility] [address] [address] [facility]: 10-14-2025 End: 51-88-0273Jytzsjo encounter zlliyvwmn55/19/2025 3:30 PM EST Routine [facility] Patti YOUNGN [address] [place] [id number] Nathan Pop DO [address] [place] [address] NOMShalonda IYERGYNStart: 10-08-2025 End: 87-41-8322Thfwmja encounter msqltuuev19/13/2025 8:00 AM EST Appointment [facility] [place] [address] [facility] [address] [place] [id number] [phone] Medicine [place]oStart: 10-06-2025 End: 10-50-9706Gqfxbcrbjjta consultation with uerqkyh2210/06/2025 2:30 PM EST Telemedicine Maternal- Medicine at [facility] [address] [place] [phone] Chivo Springer PA-C [address] [facility] [address] [address] [address] [facility]: 10-05-2025 End: 19-92-3969Rerfape encounter dzyuvtlhw81/10/2025 3:00 PM EST Office Visit Maternal- Medicine at [facility] [address] [place] [address] Chivo Springer PA-C [address] [facility] [address] [address] [facility]: 10-05-2025 End: 25-63-7524Auuxxlkqbxbe consultation with lvhclea7210/05/2025 3:00 PM EST Telemedicine Maternal- Medicine at [facility] [address] [place] [address] Chivo Springer PA-C [address] [address] [facility]: 44-64-2524VAH ( or age 60+ yrs) (1 - Risk 1-dose series)RSV ( or age 60+ yrs) (1 - Risk 1-dose series)[facility]: 09-30-2025 End: 65-67-1038Ssbeuzo encounter procedureNOMS Patti YOUNGNComment on above: ArrivedStart: 09-16-2025 End: 31-85-5681FY biophysical profile w non stress testUS biophysical profile w non stress test Imaging Routine Gestational diabetes mellitus (GDM),antepartum, gestational diabetes method of control unspecified ([facility]) Expected: 09/16/2025, Expires: 09/16/2026NOMS HealthcareComment on above:Expected: 09/16/2025, Expires: 09/16/2026Start: 09-15-2025 End: 38-17-0635Swhzyfv encounter covnoimsa25/21/2025 2:50 PM EDT Routine NOMShalonda MOODY [address] [id number] Zenobia Gutierrez PA [address] [place] [address] NOMShalonda Izaguirrert: 09-10-2025 End: 44-01-9043Wzhqxwfxfqkh consultation with speutjm1409/10/2025 11:00 AM EDT Telemedicine Maternal [facility] [place] [address] [phone] Madhuri Monroy MD [address] [facility], [address] [place] [address] Maternal Medicine [place]: 09-10-2025 End: 39-06-4242Fsqzhvd encounter ndiswvjgp80/16/2025 9:45 AM EDT Appointment Maternal [facility] [place] [address] [phone] [facility]: 09-07-2025 End: 72-13-3267Jopoxoz encounter procedureNOMS BCP OBStart: 09-04-2025 End: 29-67-0504Lvindud encounter oqbkvsfas82/10/2025 3:00 PM EDT Office Visit Maternal- Medicine at [facility] [address] [facility] [place] [phone] Mine Denise MD [address] [facility], [address] [place] [address] [facility]: 09-03-2025 End: 00-29-1925Jcxmvyl encounter procedureNOMS [place] OBGYNComment on above: [facility]buryStart: 08-27-2025 End: 23-25-5660Zkxhopn encounter rlaknctui16/02/2025 3:20 PM EDT Routine NOMShalonda [place] OBGYN [address] [place], [phone] Steph Keane NP [address] [place] [address] NOMS Patti Izaguirrert: 08-27-2025 End: 92-69-7730Gtmyjwq aminotransferase [Enzymatic activity/volume] in Serum or PlasmaALT Lab Routine induced hypertension, antepartum ([facility]-HCC) Expected: 08/27/2025 (Approximate), Expires: 08/27/2026[facility] HealthcareComment on above:Expected: 08/27/2025 (Approximate), Expires: 08/27/2026Start: 08-27-2025 End: 22-15-4857Uqqkqmjvt aminotransferase [Enzymatic activity/volume] in Serum or PlasmaAST Lab Routine induced hypertension, antepartum (HHS-HCC) Expected: 08/27/2025 (Approximate), Expires: 08/27/2026[facility] HealthcareComment on above:Expected: 08/27/2025 (Approximate), Expires: 08/27/2026Start: 08-27-2025 End: 00-01-8379SQN W Auto Differential panel - BloodCBC and differential Lab Routine induced hypertension, antepartum (HHS-HCC) Expected: 12/2024 (Approximate), Expires: 08/27/2026[facility] HealthcareComment on above: Expected: 08/27/2025 (Approximate), Expires: 08/27/2026art: 08-27-2025 End: 11-16-2448Clhjiqenxk [Mass/volume] in Serum or PlasmaCreatinine Lab Routine induced hypertension, antepartum (HHS-HCC) Expected: 08/27/2025 (Ap proximate), Expires: 08/27/2026[facility] Healthcare Work Phone: comment on above:Expected: 08/27/2025 (Approximate), Expires: 08/27/2026Start: 08-27-2025 End: 36-64-3998Sutzrzq dehydrogenase [Enzymatic activity/volume] in Serum or Plasma by Lactate to pyruvate reactionLactate dehydrogenase Lab Routine induced hypertension, antepartum (HHS-HCC) Expected: 08/27/2025, Expires: 08/27/2026[facility] HealthcareComment on above:Expected: 08/27/2025, Expires: 08/27/2026Start: 08-27-2025 End: 32-91-9452Fmyimzm, urine, 24 hourProtein, urine, 24 hour Lab Routine induced hypertension, antepartum ([facility]HS-HCC) Expected: 08/27/2025 (Approximate), Expires: 08/27/2026NOTN HealthcareComment on above:Expected: 08/27/2025 (Approximate), Expires: 08/27/2026Start: 08-27-2025 End: 28-13-4860Tw and pttPt and ptt Lab Routine induced hypertension, antepartum (HHS-HCC) Expected: 08/27/2025, Expires: 08/27/2026[facility] Comment on above:Expected: 08/27/2025, Expires: 08/27/2026Start: 08-27-2025 End: 42-39-1545Bjvjd [Mass/volume] in Serum or PlasmaUric acid Lab Routine induced hypertension, antepartum ([facility]HS-HCC) Expected: 08/27/2025 (Bouchra roximate), Expires: 08/27/2026NOTN HealthcareComment on above:Expected: 08/27/2025 (Approximate), Expires: 08/27/2026Start: 08-27-2025 End: 07-72-9249Cdkb nitrogen [Mass/volume] in Serum or PlasmaBUN Lab Routine induced hypertension, antepartum (HHS-HCC) Expected: 08/27/2025, Expires:08/27/2026NOTN HealthcareComment on above:Expected: 08/27/2025, Expires: 08/27/2026Start: 08-27-2025 End: 29-88-2401JT biophysical profile w non stress testUS biophysical profile w non stress test Imaging Routine induced hypertension, antepartum ([facility]) Gestational diabetes mellitus (GDM) in second trimester, gestational diabetes method of control unspecified ([facility]) Expected: 08/27/2025 (Approximate), Expires: 02/25/2026[facility] HealthcareComment on above:Expected: 08/27/2025 (Approximate), Expires: 02/25/2026Start: 08-24-2025 End: 26-62-1908foimcdrrkt32/29/2025 1:30 PM EDT Support Visit Maternal- Medicine at [facility] [address] [place] [phone] Teena Sarmiento, RN [address] [facility], [address] [place] [address] Kerline Augustin, RD [address] [facility] [address] [place] [address] [facility]: 08-24-2025 End: 17-16-8834Izevqif encounter /29/2025 11:00 AM EDT Office Visit [facility]OMS BCP OB [address] [facility] [place] [phone] Nathan Pop, DO [address] [place] [address] NOMS BCP OBStart: 08-12-2025 End: 65-67-2861Epaibuh encounter maitajenw01/17/2025 2:40 PM EDT Routine NOMShalonda YOUNGN [address] [place], [id number] Nathan Pop, DO [address] [place] [address] NOMShalonda [place] OBGYNStart: 08-12-2025 End: 81-41-7734Lpdbigxeknt of glucose 3 hours after glucose challenge for glucose tolerance testGlucose tolerance, 3 hours Lab Routine Elevated glucose tolerance test Expected: 08/12/2025 (Approximate), Expires: 08/12/2026[facility] Work Phone: comment on above:Expected: 08/12/2025 (Approximate), Expires: 08/12/2026Start: 08-12-2025 End: 06-54-3129Aozrgxbvhlgy / ancillary services rwsxzmzkay77/17/2025 2:00 PM EDT Ancillary Procedure NOMS Patti YOUNGN [address] [place] [address] [place] [address] CFMI Patti OBGYNStart: 07-31-2025 End: 10-58-1246PNR W Auto Differential panel - BloodCBC and differential Lab Routine Hypertension, unspecified type Wellness examination Expected: 07/31/2025 (Approximate), Expires: 08/29/2025[facility] Work Phone: Comment on above:Expected: 07/31/2025 (Approximate), Expires: 08/29/2025Start: 07-31-2025 End: 27-88-8485Lrfazrtlnnfhe metabolic 2000 panel - Serum or PlasmaComprehensive metabolic panel Lab Routine Hypertension, unspecified type Wellness examination Expected: 07/31/2025 (Approximate), Expires: 08/29/2025NOTN HealthcareComment on above:Expected: 07/31/2025 (Approximate), Expires: 08/29/2025Start: 07-31-2025 End: 91-53-6792Qodus 1996 panel - Serum or PlasmaLipid panel Lab Routine Wellness examination Lipid screening Expected: 07/31/2025 (Approximate), Exp ires: 08/29/2025NOTN HealthcareComment on above:Expected: 07/31/2025 (Approximate), Expires: 08/29/2025Start: 07-30-2025 End: 12-75-5229Zoelwux encounter /04/2025 3:40 PM EDT Office Visit [facility] [address] [place] [address] [place] [address] Eliceo Beltran DO [address] [place] [address] [place] [address] ArrivedNOReplaced by [facility] 230Comment on above:ArrivedStart: 34-47-5403AWRRW-19 Vaccine ( season)COVID-19 Vaccine ( season)[facility] HealthcareStart: 07-27-2025 Influenza vaccinationNOTN HealthcareStart: 07-15-2025 End: 70-49-5178Xmcorjy encounter xkbkqadcr37/20/2025 3:30 PM EDT Routine NOMS Patti OBGYN [address] [facility] [address] [place], [id number] Nathan Pop, [address] [place] [address] NOMS Patti OBGYNStart: 07-15-2025 End: 81-86-1167Nnffioxcslfj / ancillary services /20/2025 2:30 PM EDT Ancillary Procedure NOMS Patti OBGYN [address] [facility] [place] [phone] NOMS [place] OBGYNStart: 07-15-2025 End: 52-54-1222QCO panel - Blood by Automated countCBC Lab Routine Diabetes mellitus screening Expected: 07/15/2025 (Approximate), Expires: 07/15/2026[facility] Work Phone: comment on above:Expected: 07/15/2025 (Approximate), Expires: 07/15/2026Start: 07-15-2025 End: 91-92-5272Btyswqpadvz of glucose 1 hour after glucose challenge for glucose tolerance testGlucose tolerance, 1 hour Lab Routine Diabetes mellitus screening Expected: 07/15/2025 (Approximate), Expires: 07/15/2026NOTN HealthcareComment on above:Expected: 07/15/2025 (Approximate), Expires: 07/15/2026Start: 06-22-2025 End: 69-91-5531Ooomcjw encounter dsvqirnsb41/28/2025 2:10 PM EDT Routine NOMS Patti OBGYN [address] [facility] [address] [place], [id number] Nathan Pop, [address] [place] [address] ArrivedNOMS Patti OBGYNComment on above:ArrivedStart: 06-22-2025 End: 29-18-7458Sgvif fetoprotein, maternalAlpha fetoprotein, maternal Lab Routine Second trimester ([facility]) 17 weeks gestation of ([facility]) Expected: 06/22/2025 (Approximate), Expires: 12/23/2025[facility] Healthcare Comment on above:Expected: 06/22/2025 (Approximate), Expires: 12/23/2025Start: 06-22-2025 End: 63-27-1551BY for pregnancyUS OB 14+ weeks anatomy scan Imaging Routine Screening, , for anatomic survey ([facility]) Expected: 06/22/2025, Expires: 09/22/2025[facility] Healthcare Work Phone: comment on above:Expected: 06/22/2025, Expires: 09/22/2025Start: 05-25-2025 End: 04-13-3042Ieoippd encounter /30/2025 2:40 PM EDT Routine NOMS BCP OB [address] [facility] [phone] Nathan Pop, DO [address] [facility] [place] [address] NOMS BCP OBStart: 05-01-2025 End: 68-73-4257KAD/RhABO/Rh Lab Routine Missed menses , unspecified gestational age Expected: 05/01/2025 (Approximate), Expires: 05/01/2026[facility] HealthcareComment on above:Expected: 05/01/2025 (Approximate), Expires: 05/01/2026Start: 05-01-2025 End: 11-25-4656Kmbuq type and Indirect antibody screen panel - BloodType and screen Lab Routine Missed menses , unspecified gestational age Expected: 05/01/2025 (Approximate), Expires: 05/01/2026[facility] Healthcare Work Phone: comment on above:Expected: 05/01/2025 (Approximate), Expires: 05/01/2026Start: 05-01-2025 End: 97-05-6257Cmfek of abuse panel - Urine by Screen methodRapid drug screen, urine Lab Routine , unspecified gestational age Encounter for supervision of normal first in first trimester Expected: 05/01/2025 (Approximate), Expires: 05/01/2026NOMS HealthcareComment on above:Expected: 05/01/2025 (Approximate), Expires: 05/01/2026Start: 01-19-2025 End: 32-27-1042Ghsanwu encounter procedureNOMS BCP OBComment on above:Arrived Start: 01-19-2025 End: 88-48-5290VflxckeprvftAjloblkmbnol Lab Routine Pain in female genitalia on intercourse Endometriosis Expected: 01/19/2025(Approximate), Expires: 01/19/2026 [facility] Work Phone: comment on above:Expected: 01/19/2025 (Approximate), Expires: 01/19/2026Start: 08-18-2024 End: 07-46-1699Ykarhxm encounter procedureNOMS BCP OBComment on above:Arrived Start: 39-36-1920Bawdfnbsf vaccinationMercy Health Perrysburg Hospitaltart: 07-22-2024 End: 09-66-4541DA for pregnancyUS PELVIS-TRANSVAG IF INDICATED Imaging Routine Dysmenorrhea, unspecified Expected: 07/22/2024 (Approximate), Expires: 07/22/2025[facility] Work Phone: comment on above:Expected: 07/22/2024 (Approximate), Expires: 07/22/2025Start: 06-23-2024 End: 09-99-5436Pxffhse encounter ceakktolb02/29/2024 10:30 AM EDT Office Visit Obstetrics/Gynecology [address] [address] Charlene Rodriguez DO [address] [place] [address] 2 WEEK POST OPObstetrics/GynecologyComment on above:2 WEEK POST OPStart: 05-27-2024 End: 46-32-9653Wxhprruxw to same day surgery czdcwu1105/27/2024 7:30 AM EDT - 05/27/2024 9:30 AM EDT Surgery [facility] Surgery [address] [place] [address] Charlene Rodriguez, DO [address] [place] [address] LAPAROSCOPY FULGURATION OR EXCISION OF LESIONS OF THE OVARY PELVIC VISCERA OR PERITONEAL SURFACE BY ANY METHODAkron Children'S Hospital SurgeryComment on above:LAPAROSCOPY FULGURATION OR EXCISION OF LESIONS OF THE OVARY PELVIC VISCERA OR PERITONEAL SURFACE BYANY METHODStart: 05-27-2024 End: 07-40-9854Sckm fulg/exc ovary viscera/peritoneal surfaceLAPAROSCOPY FULGURATION OR EXCISION OF LESIONS OF THE OVARY PELVIC VISCERA OR PERITONEAL SURFACE BYANY METHOD Endometriosis 05/27/2024 7:30 AM EDTME ORStart: 05-27-2024 Subsequent hospital visit by lpfpbkecg12/02/2024 7:30 AM EDT Hospital Encounter [facility] Surgery [address] [place] [address] Charlene Rodriguez, DO [address] [place] [address] [phone] (F ax) Endometriosis [N80.9][facility] SurgeryComment on above:Endometriosis [N80.9]Start: 79-31-0159Hlioxxyag vaccinationInfluenza Vaccine (#1)NOMS HealthcareComment on above:Postponed from 07/27/2023 (Patient Refused)Start: 05-20-2024 End: 99-47-1839wwvgeefgqq53/25/2024 10:00 AM EDT [facility] MACHINE BASTER UROL PRIMGHAR MOB [address] [address] [place], [employer] Butcher Nurse [address] [address] RN GLENNGYN UROL PRIMGHAR MOBComment on above:RN TEACHINGStart: 04-22-2024 End: 08-80-1834Lqpfaec encounter kznhswlyd61/28/2024 9:00 AM EDT Office Visit [facility] [address] [place] [phone] Denny Rodríguez MD [address] [place] [address] NOMS SEP FMStart: 86-30-3079YDvP,Tdap and Td Vaccines (7 - Td or Tdap)DTaP,Tdap and Td Vaccines (7 - Td or Tdap)[facility] SystemStart: 26-90-8861KFhR/Tdap/Td Vaccines (7 - Td or Tdap)DTaP/Tdap/Td Vaccines (7 - Td or Tdap)[facility] CenterStart: 60-46-0054Ymcla microalbumin profileDTaP,Tdap,Td Vaccine (7 - Td or Tdap)[facility] Hospitaltart: 01-30-2024 End: 23-64-7360Kcyeojn encounter whecysqgp33/06/2024 11:10 AM EST Consult NOMS [facility] OB [address] [facility] [address] Nathan Pop DO [address] [place] [address] [facility]S [facility] OBStart: 01-15-2024 End: 10-54-9825Otinhppbhwoy / ancillary services mtiyqyxznv43/20/2024 8:00 AM EST Ancillary Procedure N[facility]S [facility] [address] [facility] [address] [facility]S [facility] OBStart: 01-10-2024 End: 74-49-2344UX for pregnancyUS PELVIS-TRANSVAG IF INDICATED Imaging Routine Pelvic pain in female Expected: 01/10/2024 (Approximate), Expires: 01/10/2025 [facility] Work Phone: comment on above:Expected: 01/10/2024 (Approximate), Expires: 01/10/2025Start: 42-75-0798Ehgdhsqzwh Health ScreeningBehavioral Health ScreeningMercy Health Perrysburg Hospitaltart: 03-99-5400Bnvwugrljt AssessmentDepression AssessmentCleMercy Memorial Hospitaltart: 13-47-4406Pojwj-19 Vaccine ( season) Covid-19 Vaccine ( season)[facility] Hospitaltart: 12-43-8100Wjpdwxwme vaccinationMercy Health Perrysburg Hospitaltart: 27-14-7376QIAVTMEUHX ASSESSMENTDEPRESSION ASSESSMENTMercy Health Perrysburg Hospitaltart: 29-13-1124Jzmghpzbz vaccinationInfluenza Vaccine (#1)[facility] CenterStart: 39-84-5806LQK, Provider: Charlene Rodriguez, Status: Pen, Time: 1:30 PMFUV, Provider: Charlene Rodriguez, Status: Pen, Time: 1:30 PM FI-IFNCR-Xqdjxn 320 Work Phone: Start: 03-25-0829GSJ, Provider: Charlene Rodriguez, Status: Pen, Time: 11:15 AMFUV, Provider: Charlene Rodriguez, Status: Pen, Time: 11:15 AM CP-LSKHP-Nvvevh 320 Work Phone: Start: 24-48-2507MAQ TESTINGPAP TESTINGMercy Health Perrysburg Hospitaltart: 95-05-8094Qbtaomdfn for malignant neoplasm of cervixMercy Health Perrysburg Hospitaltart: 74-21-0167YEgO,Tdap and Td Vaccines (1 - Tdap)DTaP,Tdap and Td Vaccines (1 - Tdap)[facility]: 86-50-0830FWxH/Tdap/Td Vaccines (1 - Tdap)DTaP/Tdap/Td Vaccines (1 - Tdap)[facility] CenterStart: 61-24-0157Iljcr microalbumin profileMercy Health Perrysburg Hospitaltart: 70-75-3897Rvckw BMI Follow Up Plan Adult BMI Follow Up PlanFormerly [facility], [facility] Hospitaltart: 51-67-0614Trqpr BMI ScreeningAdult BMI ScreeningFormerly [facility], [facility] Hospitaltart: 46-66-0511VVMRXI PCP TEAM CHRONIC DISEASE VISITANNUAL PCP TEAM CHRONIC DISEASE VISITFostoria City Hospital Start: 15-00-3327BW CONTROLLED (<130/80)BP CONTROLLED (<130/80)[facility] Start: 83-55-7956UIMPJCYET C SCREENINGHEPATITIS C SCREENINGFostoria City Hospital Start: 84-24-6320Zevinqjha C screeningHepatitis C ScreeningFostoria City Hospital Start: 07-79-4407OOJ SCREENINGHIV SCREENINGMercy Health Perrysburg Hospitaltart: 09-46-1351ZDO screeningHIV ScreeningMercy Health Perrysburg Hospitaltart: 10-50-6808Lqfmvlf of varicella vaccinationVaricella Vaccines (1 of 2 - 13+ 2-dose series)[facility] HospitalStart: 38-14-9273Xgucniplsu ScreeningDepression ScreeningFormerly [facility]tart: 79-78-5298Skgzydd ScreeningTobacco ScreeningFormerly [facility]tart: 43-38-5399Rkdrnbbif vaccinationVaricella Vaccines (1 of 2 - 2-dose childhood series)[facility] CenterStart: 13-40-8367BXB Vaccines (1 of 1 - Standard series)MMR Vaccines (1 of 1 - Standard series)[facility] CenterStart: 26-57-7548Gyaxogbbz vaccinationVaricella Vaccines (1 of 2 - 2-dose childhood series)[facility] Start: 32-36-9758FQSBB-19 VACCINE (#1)COVID-19 VACCINE (#1)[facility] Start: 42-59-7133EGQEDMYCB B (1 of 3 - 3-dose series)HEPATITIS B (1 of 3 - 3- dose series)[facility] Hospitaltart: 89-55-2606Nbnktuhgy B Vaccine (1 of 3 - 3- dose series)Hepatitis B Vaccine (1 of 3 - 3-dose series)[facility] Hospitaltart: 67-71-6283Nwqedopih B Vaccines (1 of 3 - 3-dose series)Hepatitis B Vaccines (1 of 3 - 3-dose series)[facility] CenterStart: 06-17-2263Fplko panelLipid PanelSumma HealthBacteria identified in Urine by CultureUrine culture Microbiology Routine Missed menses Ordered: 05/01/2025[facility] HealthcareComment on above:Ordered: 05/01/2025BC W Auto Differential panel - BloodCBC and differential Lab Routine Missed menses , unspecified gestational age Ordered: 05/01/2025[facility] HealthcareComment on above:Ordered: 05/01/2025ytology Cervical or vaginal smear or scraping studyPap Smear Pathology and Cytology Routine Well woman exam with routine gynecological exam Ordered: 08/18/2024[facility] Work Phone: comment on above:Ordered: 08/18/2024Hemoglobin A1c/Hemoglobin.total in BloodHemoglobin A1c Lab Routine Missed menses , unspecified gestational age Ordered: 05/01/2025[facility] HealthcareComment on above: Ordered: 05/01/2025Hepatitis B virus surface Ag [Presence] in Serum or Plasma by ImmunoassayHepatitis B surface antigen Lab Routine Missed menses , unspecified gestational age Ordered: 05/01/2025[facility] HealthcareComment on above: Ordered: 05/01/2025Hepatitis C virus Ab [Presence] in Serum or Plasma by ImmunoassayHepatitis C antibody Lab Routine Missed menses , unspecified gestational age Ordered: 05/01/2025[facility] HealthcareComment on above:Ordered: 05/01/2025HIV-1/HIV-2 antigen/antibody combination immunoassayHIV-1 and HIV-2 antibodies Lab Routine Missed menses , unspecified gestational age Ordered: 05/01/2025[facility] HealthcareComment on above:Ordered: 05/01/2025 End: 23-18-7307Izu pelvis w/o & w/contrast materialMRI FEMALE PELVIS WO/W IVCON Radiology Routine Pelvic and perineal pain 1 Occur[facility] 05/17/2023 [facility] Work Phone: Comment on above:1 Occurrences starting 05/17/2023 until 4Reagin Ab [Presence] in Serum by RPRRPR Lab Routine Missed menses , unspecified gestational age Ordered: 05/01/2025[facility] Comment on above:Ordered: 05/01/2025Rubella antibody, IgGRubella antibody, IgG Lab Routine Missed menses , unspecified gestational age Ordered: 04/2025[facility] HealthcareComment on above:Ordered: 05/01/2025 End: 34-48-5173WktvodSt. Luke's Hospital Work Phone: Comment on above:Once (Lab) for 1 Occurrences starting 11/30/2022 until 11/30/2022, 1 completed End: 63-18-0023FZ for pregnancyUS OB follow up transabdominal approach Imaging Routine Gestational diabetes mellitus (GDM), antepartum, gestational diabetes method of control unspecified ([facility]) every 4 weeks for 2 Occurrences starting 09/16/2025 until 12/17/2025[facility] Work Phone: comment on above:every 4 weeks for 2 Occurrences [facility] 09/16/2025 [facility] [place] Immunizations Immunization DateImmunizationNotesCare LtmhmnekRawowffg66-51-2112jjtarbpqs A vaccine, adult dosageCorey Kiesha DO Work Phone: [facility] HospitalBrfrcaphrg04-12-8533abzdd papilloma virus vaccine, quadrivalentCorey Kiesha DO Work Phone: [facility] HospitalRdwslcofdi54-03-4003nznwrsoqj, seasonal, injectable, preservative freeCorey Kiesha DO Work Phone: [facility] HospitalAxdhcumkmi17-64-1519lwjzswcwh virus vaccine, unspecified formulationGina Moschella DO Work Phone: [facility] CenterQdfrkh50-38-5743wuwhy papilloma virus vaccine, quadrivalentCorey Kiesha DO Work Phone: [facility] HospitalSordmzlpmr61-46-4264xpgknsfuc A vaccine, adult dosageCorey Kiesha DO Work Phone: [facility] HospitalLyqjolbuft21-64-3792txorg papilloma virus vaccine, quadrivalentCorey Kiesha DO Work Phone: [facility] HospitalJpiwgdxnhh05-13-2822sxownaj toxoid, reduced diphtheria toxoid, and acellular pertussis vaccine, adsorbedCorey Kiesha DO Work Phone: [facility] HospitalPtiyhcmbbz34-14-1239vboqzrazyptiz polysaccharide (groups A, C, Y and W-135) diphtheria toxoid conjugate vaccine (MCV4P)Nathan Kiesha DO Work Phone: [facility] HospitalIkbvrppxfc41-98-9886zaeekzbsvz, tetanus toxoids and acellular pertussis vaccine, unspecified formulationCorey Kiesha DO Work Phone: [facility] HospitalFmsgemieug28-45-4689jibwass, mumps and rubella virus vaccineCorey Kiesha DO Work Phone: [facility] HospitalXqvptuohgs78-25-7850cvbvfzhfdu vaccine, inactivatedCorey Kiesha DO Work Phone: [phone]-[facility] HospitalIevpptirxh33-74-7112ymjedyhsrb, tetanus toxoids and acellular pertussis vaccine, unspecified formulationCorey Kiesha DO Work Phone: [phone] HospitalDfywwtsvei16-29-8070CLX-Ozpnslmsdyl influenzae type b conjugate vaccineCorey Kiesha DO Work Phone: [phone]-[facility] HospitalZctovaurcm60-57-1610oqkohwoqv B vaccine, pediatric or pediatric/adolescent dosageCorey Kiesha DO Work Phone: [phone]-[facility] HospitalFmetcwkqrq36-18-9739rbzlmxq, mumps and rubella virus vaccineCorey Kiesha DO Work Phone: [phone] [place], [place] [address]Regmrrxkpz18-10-9929fuxhydfsb poliovirus vaccine, live, oralCorey Kiesha DO Work Phone: [phone] [place], [place] [address]Hilorkfbkk00-76-9212ULF-Kjfeisnrvma influenzae type b conjugate vaccineCorey Kiesha DO Work Phone: [phone] [place], [place] [address]Frpqbjvamx34-08-6400rvhaxvzkl B vaccine, pediatric or pediatric/adolescent dosageCorey Kiesha DO Work Phone: [phone] [place], [place] [address]Watlasjrhc33-58-5975uvtwitgop poliovirus vaccine, live, oralCorey Kiesha DO Work Phone: [phone] [place], [place] [address]Qqqggpxzxr63-50-6880EMC-Dgiphgbvtcg influenzae type b conjugate vaccineCorey Kiesha DO Work Phone: [phone] [place], [place] [address]Mjtoyzseof45-94-5101hhvqkfjxm B vaccine, pediatric or pediatric/adolescent dosageCorey Kiesha DO Work Phone: [phone] [place], [place] [address]Nivihihhev00-30-3990yupgogxxk poliovirus vaccine, live, oralCorey Kiesha DO Work Phone: [phone]-[facility] HealthcareNEGATED: Highlighted row has not occurred!93-23-3701vrltmlu, mumps and rubella virus vaccineKatcarlos Ryder DO Work Phone: [facility] HealthComment on above:Deferred: Other - Rubella ImmuneNEGATED: Highlighted row has not occurred!18-87-9069fijwmjm toxoid, reduced diphtheria toxoid, and acellular pertussis vaccine, janetKathe Ryder DO Work Phone: [facility] CenterComment on above:Deferred: No longer needed - Refused Tdap vaccine. Payers DatePayer CategoryPayerPolicy [id number] Managed Care - [facility] [id number] [facility] [id number] [id number] [id number]086.39751-65-6329Beloyip46-12-0789 NqegojkOBI706M4618660-01-9720Rornorm Health Insurance [id number] 20[id number] Health [id number] 2..1.484112.3.579.2.174 [id number] 2..1.829452.3.57[id number] 2..1.069554.3.57[id number] 2..1.942101.3.579.[id number] 2..1.678562.3.57[id number] 2..1.699690.3.57[id number] 2..1.822443.3.579.2.49967-54-9786Gewwbnh96995838 2..1.342113.3.579.[id number] 2.840.1.569156.3.579.2.24[id number] 2.0.1.172040.3.579.2.642152-70-2114Fwmbhlk86870151 2.840.1.592931.3.57[id number] 2.0.1.036649.3.579.2.453296-98-3940Euzqpmv44013397 2..1.356066.3.579.2.630158-28-0740Fbmwxrs39772911 2.0.1.350329.3.579.2.178862-98-0233Sqpcqhm12804529 2..1.918152.3.579.2.695841-37-0826Ufeevkb91391682 2..1.804656.3.579.2.050395-01-1522Cieemxo23758694 2..1.314498.3.579.2.282246-39-6474Dfadrdg04257668 2..1.206471.3.579.2.299757-73-6521Ybexyny81621526 2..1.835888.3.57[id number] 2.0.1.052534.3.579.2.862371-94-8952Zemfxzh46035193 2..1.773692.3.579.2.518636-75-6614Awzztkr70444631 2.0.1.877427.3.579.2.927254-43-9715Smmnjcf7167677 2.840.1.820047.3.579.2.424354-56-5033Kgikadx5115756 2..840.1.364324.3.579.2.726083-60-2075Osqvtvb553558113 2..840.1.805089.3.579.2.579859-08-8200Zrskgsd787371187 2..840.1.681491.3.57[id number] 2.16.840.1.600029.3.579.2.8271Ycdmwtv48506213 2.840.1.476896.3.579.2.531 Social History DateTypeDetailFacilityStart: 01-06-2021 End: 70-33-6091Zedlea uses seat beltAlways uses seat beltNOMS HealthcareStart: 12-10-2018 End: 93-11-1676Djiyjlm smoking statusNever smoked tobacco (finding)[facility]: 36-22-6938Zvfveee smoking statusNeverWilson Healthtart: 01-06-2021 End: 35-66-0009Ozl Assigned At [facility] Sweet Cred Other ToMadison HealthComment on above: denies.Tobacco smoking statusWilson Healthtart: 12-10-2018 End: 27-70-5888Wdgierh use and exposureSmokeless tobacco non-userMercy Health Perrysburg Hospitaltart: 04-11-2023 End: 79-89-8596Qmjntlb intakeCurrent drinker of alcohol (finding)[facility] Hospitaltart: 86-31-0591Yumbecr Commentmaybe a few drinks a monthFostoria City Hospital Start: 14-82-2941Opm Assigned At [facility]villeNot on [facility]othanummn HealthStart: 01-10-2024 End: 68-69-6147Ddlswgd intakeLifetime non-drinker (finding)[facility] HealthWithin the last year, have you [...] got money to buy more.Never trueNOMS HealthcareStart: 06-20-2490Kxreytjia37ZHDH HealthcareStart: 99-43-2401Echnoeg Commentcaffeine: 1-2 cups per day, coffee and popNOTN HealthcareStart: 43-62-2793Ssuquki SDOH IPV Tyzo7Afzyy HealthStart: 93-22-6302Wmblcef SDOH Housing Places Qorux1Xrtpx HealthStart: 04-12-2022 [facility] HealthStart: 11-18-2022 End: 52-08-7724Ggkhtyrv to SARS-CoV-2 (event)Not sureSuohiohealth arthur [facility] HealthAre you now , , , , never or living with a partner? MarriedNOMS HealthcareDo you feel stress - tense, restless, nervous, or anxious, or unable to sleep at night because yourmind is troubled all the time - these days [OSQ]Only a littleNOTN HealthcareStart: 12-02-2018 End: 41-09-5208FfsIxzunv (finding)[facility] Medical Centertart: 66-91-3330Zqi Assigned At [facility] Hospitaltart: 08-19-2025 End: 11-42-1509Aexgqhghm beverage intakeCurrent non-drinker of alcohol (finding) [facility] HospitalTherapeutic Monitoring Services Solution[facility] System Medical Equipment Procedure CodeEquipment CodeEquipment Original TextEquipment IdentifierDates [id number]: 08-20-2025 End: each by In Vitro route Daily Use to check FSBS four times daily [id number]: 08-20-2025 End: 05-01-7252Wgb pen needles to give insulin.[id number]: 09-04-2025 Functional Status TtccFajzcdudxhHgcczzNedolvef69-44-2151Rbccd score [AUDIT-C]0 09/10/2025 10:17 AM EDT AshleyDanae Martinez [facility]09-04-2025Patient Health Questionnaire 2 item (PHQ-2) [Reported][facility] HospitalJitsstyrlh13-03-5602Rzixx score [AUDIT-C]1 12/29/2024 10:25 PM EST Mychart, GenericNOMS Vnooteszad40-70-1911Hlj often do you have a drink containing alcohol?Monthly or less 12/29/2024 10:25 PM EST Mychart, Generic Monthly or lessNOMS Kwgovxewon19-55-6015Xskezdpqsc status Patient does not drink 12/29/2024 10:25 PM EST Mychart, Generic Patient does not drinkNOUniversity HospitalAzeqjragcc69-07-7053Gky often do you have 6 or more drinks on 1 occasion?Never 12/29/2024 10:25 PM EST Mychart, Generic NeverNOMS [facility] 69-92-8812Jcembyx Health Questionnaire 2 item (PHQ-2) [Reported][facility] 27-36-0484Xehfagarbi StatusN/[facility]03-08-2023Functional StatusN/[facility]02-04-2023Functional StatusN/[facility]01-02-2023Functional StatusN/[facility] 07-14-2022N/[facility] Clinical Notes 04-18-2022 to 10-06-2025 Note Date & BngeErqfHzohztss57-35-4232 History of Present illness Narrative* Chivo Springer PA-C - 10/06/2025 2:30 PM EST Maternal- Medicine Consultation VIDEO Patient is present at work, provider present at [facility] HISTORY OF PRESENT ILLNESS: Juhi Naidu [...] to us weekly by e-mail to: [email or web address] or by fax to: [phone] Chivo Springer PA-C Maternal- Medicine Office phone: [phone] Chivo Springer PA-C 10/06/25 1606 documented in this encounterCleveland Clinic Foundation11-10-2025 Miscellaneous Notes* Telephone Encounter - Anjana Davalos RN - 10/05/2025 2:39 PM EST Left message for patient to send in blood sugar logs prior to video visit toady in [facility] at 3 PM. Also, Instructed patient to contact [facility] if unable to keep appointment today at [facility], then to call at [phone] option 1 to reschedule. documented in this encounterCleveland Clinic Foundation11-10-2025 Telephone encounter Note* Telephone Encounter - Anjana Davalos RN - 10/05/2025 2:39 PM EST Left message for patient to send in blood sugar logs prior to video visit toady in [facility] at 3 PM. Also, Instructed patient to contact [facility] if unable to keep appointment today at [facility], then to call at [phone] option 1 to reschedule. [facility]11-05-2025 History of Present illness Narrative* Radha Rahman [...] to check FSBS. Blood Glucose Monitoring Suppl (D-i-Human Patients Glucometer) w/Device kit 1 kit, Does not [...] Diagnosis Date Amenorrhea d/t oral contraceptive pills Jonh San infection GDM (gestational diabetes mellitus) ([facility]) Headache History of menstrual cramps ([facility]) Varicella zoster Visual impairment HISTORY PAST MEDICAL HISTORY SOCIAL HISTORY Past Medical History: Diagnosis Date Amenorrhea d/t oral contraceptive pills Endometriosis John San infection GDM (gestational diabetes mellitus) ([facility]) Headache History of menstrual cramps severe Hypertension ([facility]) x1 Varicella zoster unsure Visual impairment w/ [...] Procedure Laterality Date APPENDECTOMY 05/2016 at [facility] 12/2022 retained placenta DISTAL [...] nursing note reviewed. Exam conducted with a bottom steep tender present. Vitals: Estimated body mass index is 30.36 kg/m as calculated from the following: Height as of 07/30/25: 5' 2 . Weight as of this encounter: 166 lb. BP: 140/82 Patient's last menstrual period was 02/21/2025. Assessment/Plan ICD-10-CM 1. Third trimester ([facility]) Z34.93 POCT urinalysis dipstick manually resulted 2. 31 weeks gestation of ([facility]) Z3A.31 3. Pre-eclampsia in third trimester ([facility]) O14.93 Return OB: Patient presents today [...] for routine OB appointment. Documented by Radha Ramhan MA on behalf of: Nathan Pop DO documented in this encounterReynolds County General Memorial HospitalKnycxovvhj70-48-3027 Miscellaneous Notes* Telephone Encounter - Cha Harris [...] this week. documented in this encounterCleveland Clinic Foundation11-03-2025 Telephone encounter Note* Telephone Encounter - Cha [...] insulin change for this week. [facility]10-27-2025 Miscellaneous Notes* Telephone Encounter - SILKE Baker [...] blood sugar logs weekly. documented in this [facility]10-27-2025 Telephone encounter Note* Telephone Encounter - [...] to send in blood sugar logs weekly. [facility] Umxtjg01-93-9760 History of Present illness Narrative* Chivo Springer PA-C - 09/21/2025 12:28 PM EDT Insulin dose increased due to elevated fastings. Chivo Springer PA-C 09/21/25 1229 documented in this encounterCleveland Clinic Foundation10-22-2025 Miscellaneous Notes* Telephone Encounter - Cha Harris [...] next week. documented in this encounterCleveland Clinic Foundation10-22-2025 Telephone encounter Note* Telephone Encounter - Cha [...] new blood sugars next week. [facility]10-22-2025 History of Present illness Narrative* Steph Keane [...] John San infection GDM (gestational diabetes mellitus) ([facility]) Headache History of menstrual cramps ([facility]) Varicella zoster Visual impairment HISTORY PAST MEDICAL HISTORY SOCIAL HISTORY Past Medical History: Diagnosis Date Amenorrhea d/t oral contraceptive pills Endometriosis John San infection GDM (gestational diabetes mellitus) ([facility]) Headache History of menstrual cramps severe Hypertension ([facility]) x1 Varicella zoster unsure [...] Procedure Laterality Date APPENDECTOMY 05/2016 at [facility] 12/2022 retained placenta DISTAL [...] nursing note reviewed. Exam conducted with a bottom steep tender present. Vitals: Estimated body mass index is 29.78 kg/m as calculated from the following: Height as of 25: 5' 2 . Weight as of this encounter: 162 lb 12.8 oz. BP: 120/80 Patient's last menstrual period was 02/21/2025. Assessment/Plan ICD-10-CM 1. 29 weeks gestation of ([facility]) Z3A.29 POCT urinalysis dipstick manually resulted 2. Third trimester ([facility]) Z34.93 POCT urinalysis dipstick manually resulted 3. Hypertension affecting , antepartum ([facility]) O16.9 4. Gestational diabetes mellitus (GDM), antepartum, gestational diabetes method of control unspecified ([facility]) O24.419 Return OB: Patient presents today [...] and continues to report glucose log to [facility]. Follow up Ultrasound in 4 weeks. Orders Placed This Encounter Procedures POCT urinalysis dipstick manually resulted Follow Up: Patient is to return to office in 2 week for routine OB appointment. Documented by Steph Keane NP on behalf of: Nathan Pop DO documented in this encounterReynolds County General Memorial HospitalPobppzjrij70-11-3296 History of Present illness Narrative* Madhuri Monroy MD - 09/10/2025 11:00 AM EDT Video Visit via Real-time Synchronous Audiovisual Provider Location: [facility], MATERNAL- MEDICINE [address] [place] [address], [address] [place] [address] Patient Location: Other [place] [facility] office Patient Location Software Computer Specialist: None Video Visit Consent Statement: I discussed [...] that there are some limitations compared to qexv-un-trpo evaluations. We elected to proceed. REASON FOR [...] and the other consultants, we search on [facility] and all the available care everywhere epic I did review all the imaging studies of the patient available on EMR, ordered by the primary care physician and the other quality improvement consultant HABITS: Patient activity no restrictions, diet [...] patient is in complete care of her group chief operator. Patient does have ultrasound video visit [...] today? none documented in this encounterCleveland Clinic Foundation10-10-2025 History of Present illness Narrative* Radha Magdaleno [...] Yes Have you been seen here at [facility] in a previous ? No Recent ER visits or hospitalizations? 09/03/25 [place] to r/o preeclampsia. Patient states labs WNL Bring blood sugar log or meter with you today? (Please bring them with you for every visit at [facility]) Yes Flu vaccine (Sep-January)? N/A Any [...] and the other consultants, we search on [facility] and all the available care everywhere epic I did review all the imaging studies of the patient available on EMR, ordered by the primary care physician and the other quality improvement consultant HABITS: Patient activity no restrictions, diet [...] checking blood glucose and remote evaluation through [facility] office until delivery. 5. Discontinue blood [...] patient is in complete care of her group chief operator. Patient does have ultrasound video visit [...] with questions or concerns. documented in this encounterMorrow County HospitalCrestock Ckmwul74-50-7243 History of Present illness Narrative* Steph Keane [...] meal for a total of 4times daily. crskymfdfv-ucvpczb-atqpgcrg (Fiorinal) 50-325-40 MG capsule 1 capsule, Oral, [...] San infection Headache History of menstrual cramps ([facility]) Varicella zoster Visual impairment HISTORY PAST MEDICAL HISTORY SOCIAL HISTORY Past Medical History: Diagnosis Date Amenorrhea d/t oral contraceptive pills Endometriosis John San infection Headache History of menstrual cramps severe Hypertension ([facility]) x1 Varicella zoster unsure [...] Procedure Laterality Date APPENDECTOMY 05/2016 at [facility] 12/2022 retained placenta DISTAL [...] nursing note reviewed. Exam conducted with a bottom steep tender present. Vitals: Estimated body mass index is 29.41 kg/m as calculated from the following: Height as of 25: 5' 2 . Weight as of this encounter: 160 lb 12.8 oz. BP: 170/90 Patient's last menstrual period was 02/21/2025. ASSESSMENT & PLAN ICD-10-CM 1. 27 weeks gestation of ([facility]) Z3A.27 POCT urinalysis dipstick manually resulted 2. Second trimester ([facility]) Z34.92 Documented by Steph Keane NP on behalf of: Steph Keane NP documented in this encounterReynolds County General Memorial HospitalRmwtxxjwku42-37-2598 Miscellaneous Notes* Telephone Encounter - Cha Harris [...] that appt. documented in this encounterCleveland Clinic Foundation10-07-2025 Telephone encounter Note* Telephone Encounter - Cha [...] [facility]. [facility] Qvpwfo30-69-2085 History of Present illness Narrative* Steph Keane [...] to check FSBS. Blood Glucose Monitoring Suppl (TranslationExchange-i-Human Patients Glucometer) w/Device kit 1 kit, Does not [...] San infection Headache History of menstrual cramps ([facility]) Varicella zoster Visual impairment HISTORY PAST MEDICAL [...] Procedure Laterality Date APPENDECTOMY 05/2016 at [facility] 12/2022 retained placenta DISTAL [...] nursing note reviewed. Exam conducted with a bottom steep tender present. Vitals: Estimated body mass index is 29.23 kg/m as calculated from the following: Height as of 07/30/25: 5' 2 . Weight as of this encounter: 159 lb 12.8 oz. BP: (!) 158/92 Patient's last menstrual period was 02/21/2025. ASSESSMENT & PLAN ICD-10-CM 1. 26 weeks gestation of ([facility]) Z3A.26 POCT urinalysis dipstick manually resulted 2. Second trimester ([facility]) Z34.92 Return OB: Patient presents today [...] labs and have her evaluated today at [facility] OB. I discussed with OB today and they are aware that patient is coming to be ev aluated. Orders Placed This Encounter Procedures POCT urinalysis dipstick manually resulted Follow Up: Patient is to return to office in 2 week for routine OB appointment. Documented by Steph Keane NP on behalf of: Steph Keane NP documented in this encounterReynolds County General Memorial HospitalJtnpuvzsxc79-09-9799 Group counseling note* Group Note - Kerline [...] Face to face time was 80 minutes. [employer] Work Phone: [phone]) 786-298509-29-2025 Miscellaneous Notes* Group Note - Kerline Augustin [...] time was 80 minutes. documented in this encounterMorrow County HospitalSpringbok Services [facility] HospitalYadeav82-48-1612 History of Present illness Narrative* Steph Keane [...] San infection Headache History of menstrual cramps ([facility]) Varicella zoster Visual impairment HISTORY PAST MEDICAL [...] Procedure Laterality Date APPENDECTOMY 05/2016 at [facility] 12/2022 retained placenta DISTAL [...] nursing note reviewed. Exam conducted with a bottom steep tender present. Vitals: Estimated body mass index is 27.82 kg/m as calculated from the following: Height as of 07/30/25: 5' 2 . Weight as of this encounter: 152 lb 1.9 oz. BP: 138/82 Patient's last menstrual period was 02/21/2025. ASSESSMENT & PLAN ICD-10-CM 1. 24 weeks gestation of ([facility]) Z3A.24 POCT urinalysis dipstick manually resulted 2. Second trimester ([facility]) Z34.92 POCT urinalysis dipstick [...] on Labetalol 100mg BID. Will refer to [facility] for evaluation. Patient deniesany Headache or blurred vision. Documented by Steph Keane NP on behalf of: Nathan Pop DO documented in this encounterReynolds County General Memorial HospitalBiruhdwlqv85-53-8247 History of Present illness Narrative* Eliceo Beltran [...] infection Headache History of menstrual cramps Hypertension ([facility]) Varicella zoster Visual impairment Objective ?Quick Links [...] Orders: Lipid panel; Future documented in this encounterReynolds County General Memorial HospitalJpxxxplvsr01-98-4994 History of Present illness Narrative* Christine Ravi [...] Procedure Laterality Date APPENDECTOMY 05/2016 at [facility] 12/2022 retained placenta DISTAL [...] nursing note reviewed. Exam conducted with a bottom steep tender present. Vitals: Estimated body mass index is 26.48 kg/m as calculated from the following: Height as of 12/30/24: 5' 2 . Weight as of this encounter: 144 lb 12.8 oz. BP: 120/80 Patient's last menstrual period was 02/21/2025. ASSESSMENT & PLAN ICD-10-CM 1. 20 weeks gestation of ([facility]) Z3A.20 POCT urinalysis dipstick manually resulted 2. Second trimester ([facility]) Z34.92 POCT urinalysis dipstick manually resulted [...] of: Nathan Pop DO documented in this encounterReynolds County General Memorial HospitalZbaycdguxo68-94-1750 History of Present illness Narrative* Steph Keane [...] San infection Headache History of menstrual cramps ([facility]) Varicella zoster Visual impairment HISTORY PAST MEDICAL [...] Procedure Laterality Date APPENDECTOMY 05/2016 at [facility] 12/2022 retained placenta DISTAL [...] nursing note reviewed. Exam conducted with a bottom steep tender present. Vitals: Estimated body mass index is 26.73 kg/m as calculated from the following: Height as of 12/30/24: 5' 2 . Weight as of this encounter: 146 lb 1.9 oz. BP: 118/74 Patient's last menstrual period was 02/21/2025. ASSESSMENT & PLAN (Z34.92) Second trimester ([facility]) Plan: POCT urinalysis dipstick manually resulted, Alpha fetoprotein, maternal, Alpha fetoprotein, maternal (Z3A.17) 17 weeks gestation of ([facility]) Plan: POCT urinalysis dipstick manually resulted, Alpha fetoprotein, maternal, Alpha fetoprotein, maternal (Z36.89) Screening, , for anatomic survey ([facility]) Plan: US OB 14+ weeks anatomy [...] of: Nathan Pop DO documented in this encounterReynolds County General Memorial HospitalWmimszhriv90-26-3176 History of Present illness Narrative* Steph Keane [...] San infection Headache History of menstrual cramps ([facility]) Varicella zoster Visual impairment HISTORY PAST MEDICAL [...] Procedure Laterality Date [facility] [facility] 12/2022 retained placenta DISTAL [...] nursing note reviewed. Exam conducted with a bottom steep tender present. Vitals: Estimated body mass index is 25.24 kg/m as calculated from the following: Height as of 12/30/24: 5' 2 . Weight as of this encounter: 138 lb. BP: 122/80 Patient's last menstrual period was 02/21/2025. ASSESSMENT & PLAN ICD-10-CM 1. Second trimester ([facility]) Z34.92 POCT urinalysis dipstick manually resulted 2. 13 weeks gestation of ([facility]) Z3A.13 Return OB: Patient presents today [...] of: Nathan Pop DO documented in this encounterReynolds County General Memorial [id number] History of Present illness Narrative* Hina Go [...] Endometriosis 03/29/2023 Gastroparesis 03/29/2023 Hypertension ([facility]) 03/29/2023 Intractable migraine without aura and with status migrainosus ([facility]) 03/29/2023 Migraines ([facility]) 03/29/2023 Chronic pelvic pain in female 03/29/2023 Pain in female genitalia on intercourse 03/29/2023 Pain on swallowing 03/29/2023 Panic disorder ([facility]) 03/29/2023 Patellofemoral disorders, left knee 03/29/2023 Patellofemoral disorders, right knee 03/29/2023 Posterior calcaneal exostosis 03/29/2023 Scapular dyskinesis 03/29/2023 Scoliosis 03/29/2023 Seasonal allergic rhinitis due to pollen 03/29/2023 Tachycardia, paroxysmal ([facility]) 03/29/2023 Tension headache 03/29/2023 Vitamin B12 [...] Procedure Laterality Date APPENDECTOMY 05/2016 at [facility] 12/2022 retained placenta DISTAL [...] by: Hina Go LPN documented in this encounterReynolds County General Memorial [id number] History of Present illness Narrative* Candis Yanes, ARCHITECTURAL INTERN - 01/19/2025 2:50 PM EST Reason for Appointment: Patient ID: Juhi Gama is a 29 y.o. female who presents for Painful [place] Patient presents today for Consult appointment. MEDICATIONS Current Outpatient Medications Medication Instructions wgutdkzpml-gxcmqcfjoifcy-dyziotnn 50-325-40 MG tablet 1 tablet, Oral, Every [...] Endometriosis 03/29/2023 Gastroparesis 03/29/2023 Hypertension ([facility]) 03/29/2023 Intractable migraine without aura and with status migrainosus ([facility]) 03/29/2023 Migraines ([facility]) 03/29/2023 Chronic pelvic pain in female [...] Procedure Laterality Date APPENDECTOMY 05/2016 at [facility] 12/2022 retained placenta DISTAL [...] nursing note reviewed. Exam conducted with a bottom steep tender present. Vitals: Estimated body mass index is [...] patient and patient given direct extension to Datastage Developer for any questions/concerns pertaining to fertility. Documented by Candis Yanes LPN on behalf of: Nathan Pop DO documented in this encounterReynolds County General Memorial [id number] History of Present illness Narrative* Eliceo Beltran [...] Procedure Laterality Date APPENDECTOMY 05/2016 at [facility] 12/2022 retained placenta DISTAL [...] Stress: No Stress Concern Present (12/29/2024) [place] [employer] - Occupational Stress Questionnaire Feeling of Stress : Only a little Social Connections: Unknown (12/29/2024) Social Connection and Isolation Panel [NHANES] Frequency of Communication with Friends and Family: More than three times a week Frequency of Social Gatherings with Friends and Family: Once a week Attends [employer] Services: Patient declined Active Member of Clubs [...] with the patient today. Current Outpatient Medications: igwillhtcm-nilghptroykrn-yhajoght 50-325-40 MG tablet, Take 1 tablet by mouth every 6 (six) hours if needed for headaches, Disp: 20 tablet, Rfl: 0 desogestrel-ethinyl estradiol (Apri) 0.15-30 MG-MCG tablet, Take 1 tablet by mouth Daily, Disp: 21 tablet, Rfl: 12 metoprolol succinate XL (Toprol-XL) 25 MG 24 hr tablet, Take 1 tablet by mouth daily, Disp: 90 tablet, Rfl: 1 documented in this encounterReynolds County General Memorial [id number] History of Present illness Narrative* Virgen Steen LPN - 08/18/2024 11:00 AM EDT Reason for Appointment: Patient ID: Juhi Cpoe is a 29 y.o. female who presents for Well Women Visit Patient presents today for Annual Exam. MEDICATIONS Current Outpatient Medications Medication Instructions pielqiyjec-ikfzpjvzxsvuf-gfjblprs 50-325-40 MG tablet 1 tablet, Oral, Every [...] of menstrual cramps severe Hypertension ([facility]) x1 Varicella zoster unsure [...] Procedure Laterality Date APPENDECTOMY 05/2016 at [facility] 12/2022 retained placenta DISTAL [...] nursing note reviewed. Exam conducted with a bottom steep tender present. Vitals: Estimated body mass index is [...] of: Zenobia Gutierrez PA-C documented in this encounterReynolds County General Memorial HospitalOgibxiygbl90-67-7127 History of Present illness Narrative* Christine Ravi LPN - 07/22/2024 9:50 AM EDT Reason for Appointment: Patient ID: Juhi Cope is a 29 y.o. female who presents for Dysmenorrhea Patient presents today for Acute Visit. MEDICATIONS Current Outpatient Medications Medication Instructions kpovfadztu-duvpypooierwn-xcuivenz 50-325-40 MG tablet 1 tablet, Oral, Every [...] Procedure Laterality Date APPENDECTOMY 05/2016 at [facility] 12/2022 retained placenta DISTAL [...] nursing note reviewed. Exam conducted with a bottom steep tender present. Vitals: Estimated body mass index is [...] of: Nathan Pop DO documented in this encounterReynolds County General Memorial HospitalBdibzssyys65-23-5292 Telephone encounter Note* Telephone Encounter - Candis Garces - 04/29/2024 8:23 AM EDT Received message from admin Anna Webb to cancel surgery and all appts as pt had services elsewhere [facility]06-04-[facility] Miscellaneous Notes* Telephone Encounter - Candis Garces - 04/29/2024 8:23 AM EDT Received message from admin Anna Webb to cancel surgery and all appts as pt had services elsewhere documented in this encounterF[facility]05-[facility] Telephone encounter Note * Telephone Encounter - Anna De Leon - 04/25/2024 1:10 PM EDT Pt got in sooner for surgery with her local csw. Please cancel surgery and all pre and post op appts. [facility]-31-2024 Miscellaneous Notes* Telephone Encounter - Anna De Leon - 04/25/2024 1:10 PM EDT Pt got in sooner for surgery with her local csw. Please cancel surgery and all pre and post op appts. documented in this encounterFostoria [facility]02-15-[facility] History of Present illness Narrative* [...] Procedure Laterality Date APPENDECTOMY 05/2016 at [facility] 12/2022 retained placenta DISTAL [...] nursing note reviewed. Exam conducted with a bottom steep tender present. Vitals: Estimated body mass index is [...] of: Nathan Kiesha, DO documented in this encounterReynolds County General Memorial HospitalHproecswpz58-63-2345 Miscellaneous Notes* Telephone Encounter - Pippa Simon [...] mg tablet Class: Normal Route: ORAL Order: [id number] E-Prescribing Status: Receipt confirmed by pharmacy (05/17/2023 [...] Center 05/20/2024 10:00 AM [facility] 06/23/2024 10:30 AM Charlene Rodriguez DO [facility] Appointment scheduled: As listed above Action taken: Refill request routed to clinician Pippa Simon RN January 03, 2024 4:29 PM * Telephone Encounter - Alena Tracy - 01/02/2024 3:52 PM EST Patient: Juhi Cope : 1995 Provider: Charlene Rodriguez DO Caller Phone #: [phone] (home) [phone] (cell) Reason for call: b/c refill Message routed to nurse triage Date of next visit: MEGAN: 12/10/2023 documented in this encounterFostoria City Hospital01-15-2024 NoteHNO ID: [id number] Author: CHARLENE RODRIGUEZ DO Service: ? 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 Where to find more information [employer]: www.heart.org Contact a health care [...] provider. Document Revised: 07/27/2022 Document Reviewed: 07/27/2022 [employer] Patient Education 2022 [employer]. 09/12/2023 18:18:13 Hypertension, Adult, Ifne-lj-Hnck Hypertension, Adult Hypertension is another name for [...] doctor. Keep all follow-up visits. Medicines Take szlg-hxd-nitpvlz and prescription medicines only as told by [...] provider. Document Revised: 08/31/2022 Document Reviewed: 08/31/2022 [employer] Patient Education 2022 [employer]. 09/12/2023 18:18:13 General Headache Without Cause, Yjxv-po-Qjnb General Headache Without Cause A headache is pain or discomfort you feel around the head or neck area. There are many causes and types of headaches. In some cases, the cause may not be found. Follow these instructions at home: Watch your condition for any changes. Let your doctor know about them. Take these steps to help with your condition: Managing pain Take lilo-wmn-hytdmmu and prescription medicines only as told by [...] provider. Document Revised: 04/12/2022 Document Reviewed: 04/12/2022 [employer] Patient Education 2022 [employer]. Follow Up Care 09/12/2023 17:21:57 With:DENNY RODRÍGUEZ Address: [address] [place] [address] Business (1) When:09/15/2023 18:03:37 Comments:Follow-up with your primary care provider in 3 to 5 days. If symptoms worsen, do not improve, or new symptoms arise please report back to emergency department for further evaluation. [facility]10-18-2023 Evaluation + Plan noteExtracted from: Title:ED NoteAuthor:Eric [...] 18:02:00 EDT, 09/12/23 18:02:00 EDT [facility]10-16-2023 Instructions* Patient Instructions* Jihan Downs APRN.CNP - 09/10/2023 9:52 AM EDT Plan: Trial baclofen suppositories - can switch to pill vaginally if suppositories are not affordable Consider Pelvic floor physical therapy - can find local provider [email or web address] Consider going back to see Dr Kuldip Downs APRN.CNP documented in this encounterFostoria [facility]10-05-2023 NoteHNO ID: [id number] Author: Charlene Rodriguez DO Service: ? Author Type: Physician Type: Progress Notes Filed: 08/30/2023 11:15 AM Note Text: Tramadol rx sent to pharmacy.[facility]10-05-2023 History of Present illness Narrative* Charlene Rodriguez DO - 08/30/2023 11:13 AM EDT Tramadol rx sent to pharmacy. documented in this encounterFostoria City Hospital10-05-2023 Miscellaneous Notes* Telephone Encounter - Chelsie Dueñas RN - 08/30/2023 10:50 AM EDT Last office visit: 08/24/2023 Assessment and Plan No diagnosis found. Trial baclofen suppositories Will send list of PTs Consider going back to [facility] SIGNATURE: Jihan Downs APRN.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 TEACHER Office visit with Dr. Rodriguez 07/16/2023 IMPRESSION: [...] plan. Charlene Rodriguez DO documented in this encounterFostoria City Hospital09-29-2023 NoteHNO ID: [id number] Author: Jihan Downs APRN.ANA LAURA Service: ? Author Type: Nurse Practitioner Type: Progress Notes Filed: 09/10/2023 9:53 AM Note Text: [facility] [place] Department of Benign Gynecology [facility] PATIENT NAME: Juhi Cope DATE: 08/24/2023 Patient Name and verified: Yes Patient Location: [place] This Virtual Visit was completed using My Chart Zoom platform. I have communicated my name and active licensure. The patient's identity and physical location were verified at the time of this visit. Either the patient or their legal vaccine customer representative has been informed of the risks [...] appointment yet. 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 [facility] [place] Department of Benign Gynecology [facility] PATIENT NAME: Juhi Cope DATE: 08/24/2023 Patient Name and verified: Yes Patient Location: [place] This Virtual Visit was completed using My Chart Zoom platform. I have communicated my name and active licensure. The patient's identity and physical location wereverified at the time of this visit. Either the patient or their legal vaccine customer representative has been informed of the risks [...] appointment yet. GI - constipation is improved [place] - hasn't tried due to pain and [...] physical therapy - or can go locally pelvicShanghai Yinzuo [employer] [employer] Trial flexeril at bedtime Can consider Baclofen suppositories Continue Norethindrone - can take up to 3 months for it to stop periods, take at same time every day Relaxation techniques Jihan Downs APRN.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 TEACHER OB History T0 L1 SAB0 IAB0 Ectopic0 Multiple0 Live Births0 [employer] History LMP: 07/08/2023 (Exact Date), Having periods Age at Menarche: 14 Age at First : 27 Age at Menopause: Farm [employer] History Comments: Sexual Activity: Never; No partner [...] to see Dr Rodriguez SIGNATURE: Jihan Downs, JAMI.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 TEACHER Medical Decision Making: Problems: Low: Stable chronic illness Risk: Moderate: Drug management Medical Decision Making Level: 3 - Low documented in this encounterFostoria City [facility]09-22-2023 Miscellaneous Notes* Telephone Encounter - [...] Provider: Charlene Rodriguez DO Caller Phone #: [phone] (home) [phone] (cell) Reason for call: pt calling regarding mc message., still in pain. Please call [phone] Message routed to nurse triage Date of next visit: documented in this encounterFostoria [facility] Hospital09-07-2023 Miscellaneous Notes* Telephone Encounter - Candis Suárez RN - 08/02/2023 11:29 AM EDT PA for orilissa completed via [employer]. Juhi Cope (Morales: [id number]) - [id number] Orilissa 150MG tablets Status: Sent To Plan [...] too. Please advise. Thanks. documented in this encounterFostoria [facility]08-21-2023 NoteHNO ID: [id number] Author: Charlene Rodriguez DO Service: ? 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 Author Type: Credit Specialist Type: Progress Notes Filed: 06/12/2023 4:32 [...] BY: RT Claudia(Bryant) June 12, 2023 4:32 PMCGreen [facility]07-18-2023 NoteHNO ID: [id number] Author: Boo Singh RN Service: Nursing Author [...] Cope DATE: June 12, 2023 TIME: 1:43 [facility]06-22-2023 NoteHNO ID: [id number] Author: Charlene Rodriguez, DO Service: ? 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 Charlene Rodriguez DO Tt: 20 minutesKe[facility]an [facility] Hospital06-[facility]-2023 History of Present illness Narrative* Charlene Rodriguez DO - 05/17/2023 1:05 PM EDT Images from the original note were not included. 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 Biggest complaint is cramping. Has had 3 periods of bleeding recently - 04/22/2023 LMP, last a few days, 05/04-05/10 bleeding again 05/11/2023 started again today. Takes aygestin 5mg daily. 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 Encourage to machine operator picker the flexeril as this will help with the cramping. Reviewed red flag bleeding symptoms that require trip to ER (soaking greater than one overnight padper hour, chest pain, shortness of breath, fatigue, palpitations).. Advised keep appt. Gives verbal understanding. Appointments for Next 60 Days Date Time Provider Location Dept Phone 05/17/2023 1:00 PM CHARLEN[facility] R[facility]RIGUEZ [facility] [phone] Candis Suárez RN * Telephone Encounter - Tawana Nair [facility] - 05/11/2023 1:19 PM EDT Reason for call: other - Vaginal bleeding Provider name: Dr Rodriguez Additional comments: patient having more vaginal bleeding and concerned she is getting worse. Recommendation: routed to nurse triage pool documented in this encounterFostoria [facility] Hospital06-06-2023 Instructions* Patient Instructions* Jihan Downs APRN.ANA LAURA - 05/01/2023 11:47 AM EDT Plan Pelvic floor physical therapy - or can go locally pelvicShanghai Yinzuo [employer]ai[employer] Trial flexeril at bedtime Can consider [...] pelvic pain society ([email or web address].org) documented in this encounterFostoria City Hospital06-06-2023 History of Present illness Narrative* Jihan Downs APRN.ANA LAURA - 05/01/2023 10:30 AM EDT Juhi Cope is a 28 year old female who presents for problem visit for pain HPI: Pain is week before period and week of period. Worse on her period for every day she's bleeding Urinary - No symptoms GI - Always constipated. No meds [place] - painful always Pain is on left [...] L0 SAB0 IAB0 Ectopic0 Multiple0 Live Births0 [employer] History LMP: 03/26/2023 (Approximate), Having periods Age at Menarche: Age at First : Age at Menopause: Farm [employer]cher History Comments: Sexual Activity: Never; No partner [...] physical therapy - or can go locally [employer] Trial flexeril at bedtime Can consider Baclofen [...] Level: 4 - Moderate documented in this encounterFostoria City Hospital06-06-2023 NoteHNO ID: [id number] Author: Jihan Downs APRN.CNP Service: ? Author Type: Nurse Practitioner Type: Progress Notes Filed: 05/09/2023 11:46 AM Note Text: Juhi Cope is a 28 year old female who presents for problem visit for pain HPI: Pain is week before period and week of period. Worse on her period for every day she's bleeding Urinary - No symptoms GI - Always constipated. 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 Lucila Foss RN documented in this encounterFostoria City Hospital03-08-2023 Hospital Discharge instructions Patient Education [...] told by your health care provider. Take dogt-gso-rwxfbwz and prescription medicines only as told by [...] 01/03/2007 Document Revised: 10/25/2018 Document Reviewed: 01/25/2018 [employer] Patient Education 2020 [employer]. Follow Up Care 01/31/2023 13:43:01 With:Denny Meza Address:Unknown When:02/03/2023 18:59:31 Comments:Follow-up for evaluation of hypertension in context of known preeclampsia in the period With:DENNY RODRÍGUEZ [facility] [place] [address]- Business (1) When:Within 3 Day(s) [facility]03-08-2023 Evaluation + Plan noteExtracted from: Title:ED NoteAuthor:Mayur Mabry PA-C CDate:01/31/23 Flank pain (R10.9: Unspecifi ed abdominal pain) Headache (R51.9: Headache, unspecified) Orders: CTA Chest Hepatic Function Panel [facility]02-04-2023 Hospital Discharge instructions Patient Education 12/30/2022 13:59:51 MACHINE BASTER - Post D&C, Hysteroscopy, LEEP or Essure/Laparoscopy [...] Instructions - FT (Custom) (Custom) 12/30/2022 13:55:16 MACHINE BASTER - Post D&C, Hysteroscopy, LEEP or Essure/Laparoscopy [...] With:Denny Meza Address: [address], [place] [address] [place] [address]- Business (1) When: Unknown Comments:follow up in 1-2 weeks With:DENNY RODRÍGUEZ Address: [address] [place] [address]- Business (1) When:01/02/2023 09:21:18 [facility]02-04-2023 Evaluation + Plan noteExtracted from: Title:ANES Post-operative [...] from:Title:ANES Pre-operative NoteAuthor:Kenneth Agustin MDDate: 12/30/22 Plan [place] [employer] Anesthesiologists (ASA) physical status classification: [...] Reflex US Pelvis Non-OB Complete [facility]01-10-2023 History of Present illness Narrative* Tory Pimentel [...] Ross MD - 12/05/2022 3:19 PM EST [facility]: This patient was seen in the [facility] by the resident. I reviewed and agree with the care provided by the resident during or immediately following the visit including the patient's medical history, the resident's finding in the physical exam, patient's diagnosis and treatment plan. documented in this [facility]01-07-2023 NoteDepartment of Obstetrics and Gynecology Delivery Discharge Summary Admission on 11/28/2022 12:24 AM Hospital course: Juhi Cope at 35w1d admitted as a transfer from [facility] for [facility]. She was started on Magnesium there and transported here for delivery. She has persistent severe range BP on admission acutely treated with 20 IV Labetalol. Her labor course consisted of cytotec, 60 ml cahuhan bulb, pitocin, and AROM. Once complete she pushed for 1.5-2 hrs prior to . course & complications: - Uncomplicated Surgical Operations & Procedures: Date of delivery: 11/30/22 Procedure: Vaginal: Spontaneous Anesthesia: Epidural anesthesia Laceration(s): 2nd degree Delivery Complications: none EBL: 400 mL Pertinent Findings & Procedures: Information for the patient's : Francie Cope [[id number]] female 2425 g (5 lb 5.5 oz) Apgars: Information for the patient's : Francie Cope [[id number]] : Infant: Girl Blood Type/Rh: O Antibody [...] to [facility] [address] [place], [place] [id number] Hours: Sunday to Sunday 10 am to 6 pm docusate sodium 100 MG capsule ibuprofen 600 MG tablet NIFEdipine XL 30 MG 24 hr tablet Activity: Activity as tolerated Diet: Regular diet Follow-up Appointments: - visit - Blood pressure check If a patient meets criteria for hypertension, make sure the following are done prior to discharge: [] Order a blood pressure kit through [facility] (or the patient's own pharmacy on the weekend) [] Order the blood pressure log through [employer] [x] Place an office visit or telephone [...] notify her physician if any of these occur.[facility]01-07-[facility]23 History of Present illness Narrative* Anna [...] with more than 50% of the total denv-tc-onds time of the visit in counseling/coordination of [...] be monitored and followed by the diet civil cadd technician. CRISS Oshea * Alejandra Arcos RN [...] and reassuring. CCM. Cx:/-3 FHT: Cat 1 [place]ames[place]:q3-4 min A/P: 1. IOL-PreEwSF. FHT 130 baseline, with moderate variability, Accelerations present Yes, and rare late deceleration . Cervical exam unchanged. Cytotec x4 placed at this time. Patient intermittently feeling contractions. BP mild range. Cx: 1-/-3 FHP: defer FHT: Cat I [place]ames[place]: a3-4min A/P: 1. IOL-PreEwSF: FHT Category I, [...] Cx: unchanged FHP: defer FHT: Cat I [place]ames[place]: q4min A/P: 1. IOL-PreEwSF: FHT Category I, [...] 11/29/2022 6:17 AM Cx:1-2/60/-3 FHT: Cat I [place]ames[place]:q4-5mins A/P: 1. IOL-PreEwSF: Cat I FHT with [...] per protocol. CCM. Cx:defer FHT: Cat I [place]ames[place]:q4-6mins A/P: 1. IOL-PreEwSF: Cat I FHT with baseline 120, moderate variability, spontaneous accelerations, and no decelerations. BP normotensive to mild range since last note time. Pitocin @ 2 cc/hr, continue to titrate per protocol. Magnesium sulfate running for seizure prophylaxis, UOP 400 ml over past 4hours. CCM. Cx:defer FHT: Cat I [place]ames[place]:q4-5mins A/P: 1. IOL-PreEwSF: Cat I FHT with baseline 135, moderate variability, spontaneous accelerations, and no decelerations. BP normotensive to mild range since last note time. Pitocin @ 6 cc/hr, continue to titrate per protocol. Magnesium sulfate running for seizure prophylaxis, UOP 600 ml over past 4hours. Will plan for AROM soon. CCM. Cx:defer FHT: Cat I [place]ames[place]:irritability A/P: 1. IOL-PreEwSF: Pit @ 8 mu/min. Patient resting comfortably and only irritability tracing on toco. BP most recently mild range. On magnesium sulfate for seizure prophylaxis. UOP adequate. Continue magnesium and continue to titrate pitocin per protocol. Plan for AROM once patient rudi more regularly. Electronically signed by Cortney Velasquez DO 11/29/2022 4:21 PM Cx:470/-3 FHT: Cat 1 [place]ames[place]:Not tracing A/P: 1. IOL-PreEwSF. FHT 135 baseline, with moderate variability, Accelerations present Yes, and nodecelerations seen . AROM at this time for moderate amount blood tinged fluid. Pitocin at 8cc/hr. Maternal BP mild range. On Magnesium for Seizure prophylaxis. Patient with adequate urinary output. CCM. Cx: defer FHP: defer FHT: Cat II Lames[place]: not tracing well A/P: 1. IOL-PreEwSF: FHT [...] per RN FHP: defer FHT: Cat II [place]ames[place]: q4min A/P: 1. IOL-PreEwSF: FHT Category II [...] delivery note for details documented in this [facility]23 Hospital course Narrative* César Tran DO - 12/02/2022 12:32 PM EST Images from the original note were not included. Department of Obstetrics and Gynecology Delivery Discharge Summary Admission on 11/28/2022 12:24 AM Hospital course: Juhi Cope at 35w1d admitted as a transfer from [facility]. She was startedon Magnesium there and [...] Information for the patient's : Francie Cope [[id number]] female 2425 g (5 lb 5.5 oz) Apgars: Information for the patient's : Francie Cope [[id number]] : : Girl Blood Type/Rh: O Antibody [...] to [facility] [address] [place] [address] Hours: Sunday to Sunday 10 am to 6 pm docusate sodium 100 MG capsule ibuprofen 600 MG tablet NIFEdipine XL 30 MG 24 hr tablet Activity: Activity as tolerated Diet: Regular diet Follow-up Appointments: - visit - Blood pressure check If a patient meets criteria for hypertension, make sure the following are done prior to discharge: [] Order a blood pressure kit through [facility] (or the patient's own pharmacy on the weekend) [] Order the blood pressure log through [employer] [x] Place an office visit or telephone [...] any of these occur. documented in this [facility]01[facility] Note* Care Coordination - Christine Michelle RN [...] home. Denies any concerns at this time. [facility] [id number] Note* Care Coordination - Christine Michelle RN [...] home. Denies any concerns at this time. [facility] [id number] Miscellaneous Notes* Care Coordination - Christine Michelle [...] this pt. Due to: in [facility] breast pump, supplies kit, swabs and [...] to check with LC in [facility] for smaller flange sizes * L&D Delivery Note - Irina Kramer DO - 11/30/2022 4:04 AM EST Images from the original note were not included. Vaginal Delivery Note Department of Obstetrics and Gynecology Patient: Juhi Cope : 1995 Date of delivery: 11/30/2022 Pre-operative Diagnosis: Juhi Mojica0 at 35w1d 1. <37 weeks 2. 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 Bowden; Dr. Kramer Information: Information for the patient's : Francie Cope [[id number]] Information for the patient's : Francie Cope [[id number]] Description: normal Meconium Noted: No Anesthesia: epidural [...] change. Clotilde Mg RN documented in this [facility]01-06-2023 Obstetrics Note* Note - Ligia Bridges RN - 12/01/2022 9:00 AM EST 22.5mm flanges given to patient. Encouraged her to call for observation of pump session and smallerflanges. Martha in NICU to assist with personal pump. [facility] [id number] Hospital Discharge instructions* Discharge Instructions* Carol Bowden [...] as 8 weeks after delivery. Bleeding may machine operator picker and then decrease again around 7-10 [...] avoid constipation you may take a mild cdyh-gfc-sendeqy stool softener (such as colace) as recommended [...] positive or a Person Under Investigation (PUI) Fhjwhi-cb-jfdjn transmission of COVID-19 during is unlikely, but after a baby is susceptible to twgghq-sm-qxdthw spread. After your baby is born, your [...] clean your hands with an alcohol-based hand driver's education instructor that contains at least 60% alcohol. Clean your hands often Wash your hands often with soap and water for at least 20 seconds, especially after blowing your nose, coughing, or sneezing; going to the bathroom; and before eating or preparing food. If soap and water are not readily available, use an alcohol-based hand driver's education instructor with at least 60% alcohol, covering all [...] to call the local or [facility] health department. Persons who are placed underactive [...] isolation precautions should be made on a mcid-fk-qscu basis, in consultation with healthcare providers and [...] respiratory tract signs and symptoms. Ways to [place] with Anxiety & Stress It is normal [...] an illness that was first found in [facility], in October 2019. It has since [...] seen in people before. This virus spreads xawiyv-ka-puekgw through droplets from coughing and sneezing. It [...] water aren't available, use an alcohol-based hand driver's education instructor. Call 911 anytime you think you may [...] of: February 25, 2020 Content Version: 12.4 Sc[employer]crow [employer]. Care instructions adapted under license by your [...] handles, desks, toilets, faucets, sinks) with household dice manager and EPA-registered disinfectants that are appropriate [...] appropriate. These supplies include tissues, paper towels, dice manager and EPA-registered disinfectants (see list link at [facility] website). If a separate [...] be used for other purposes. Consult the neurodiagnostic tech's instructions for cleaning and disinfection products used. [...] used if appropriate for the surface. Follow neurodiagnostic tech's instructions for application and proper ventilation. Check [...] for harder to kill viruses. Follow the neurodiagnostic tech's instructions for all cleaning and disinfection products (e.g., concentration, application method and contact time, etc.). Soft (porous) surfaces such as carpeted floor, rugs, and drapes Remove visible contamination if present and clean with appropriate dice manager indicated for use on these surfaces. After cleaning: Launder items as appropriate in accordance with the neurodiagnostic tech's instructions. If possible, launder items using the [...] items as appropriate in accordance with the neurodiagnostic tech's instructions. If possible, launder items using the warmest appropriate water setting for the items and dry items completely. Dirty laundry from an ill person can be washed with other people's items. Clean and disinfect clothes hampers according to guidance above for surfaces. If possible, considerplacing a waxed bag machine operator that is either disposable (can be thrown away) or can be laundered. [facility] has a list of EPA approved cleaning products on their website - https://www.cdc.gov/coronavirus/ 2019-ncov/community/home/cleaning-disinfection.html https://www.Contactual/Wfxhx-Ttgotstiglb-Votrjslh-Products-List.pdf [employer] with delivery and machine operator picker services: [employer]: Free machine operator picker at locations Delivery is $12.95 a month Website - [employer] Kenneth: Workforce Management Analyst $2.95 (1st order is free) Delivery is $14.95 Website - [employer] [place]: county supervisor is free Delivery is $5.95 Website [employer]: county supervisor is $4.95 Delivery is $9.95 Website [employer]: county supervisor is $4.95 Delivery is $9.95 Website [employer]: Can be ordered for delivery and machine operator picker with [employer] Website - www.ISIS [employer]: Free deliver for first 3 orders of $35 or more Website - aldiINCHRON Will deliver from [employer], [employer], [employer], and [employer]. Annual membership is $99 Monthly membership is $14 * Attachments The following attachments cannot be sent through Care Everywhere. * Preeclampsia Discharge Instructions (Uruguayan) documented in this [facility]01-05-2023 Obstetrics Note* Note - Sheila Harrell RN - 11/30/2022 10:37 AM EST Swabs given to patient and educated how to use and to bring to [facility]RISTIAN [facility] [id number] Obstetrics Note* Note - Sheila Harrell RN - 11/30/2022 10:30 AM EST Breast pump use indicated for this pt. Due to: in [facility] breast pump, supplies kit, swabs and [...] patient to check with in [facility] for smaller flange sizes [facility] [id number] NotePatient: Juhi Cope Procedure Summary Date: 11/29/22 [...] discharged once all PACU criteria has been met.[facility]01-05-2023 NotePatient: Juhi Cope Procedure Summary Date: [...] Allowed opportunity for questions and acknowledgement of understanding.[facility]01-05-2023 Labor and delivery summary note* L&D Delivery Note - Irina Kramer DO - 11/30/2022 4:04 AM EST Images from the original note were not included. Vaginal Delivery Note Department of Obstetrics and Gynecology Patient: Juhi Cope : 1995 Date of delivery: 11/30/2022 Pre-operative Diagnosis: Juhi Sidhu at 35w1d 1. <37 weeks 2. 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 Bowden; Dr. Kramer Information: Information for the patient's : Francie Cope [[id number]] Information for the patient's : Francie Cope [[id number]] Description: normal Meconium Noted: No Anesthesia: epidural [...] as described in the resident note. [facility] [id number] NoteEpidural Block Time Out: 11/29/2022 6:17 PM Patient location during procedure: OB Start time: 11/29/2022 6:18 PM End time: 11/29/2022 6:45 PM Reason for block: labor analgesia Staffing Performed: INORGANIC CHEMISTRY PROFESSOR Resident/INORGANIC CHEMISTRY PROFESSOR: Jimmie Kaur APRN - INORGANIC CHEMISTRY PROFESSOR Preanesthetic Checklist Completed: patient identified, IV checked, [...] patient tolerated procedure well with no immediate complicationsPaul [facility] Plan of care note* Care Plan - Clotilde Mg RN - 11/29/2022 7:45 AM EST The patient will continue to make cervical change. Clotilde Mg RN [facility] [id number] NotePatient: Juhi Cope Procedure Information Date: 11/28/22 [...] products. patient is not NPO Additional Equipment RequestsPaul [facility]01-03-2023 NoteLabor Progress Note Date: 11/28/2022 Time: [...] and reassuring. CCM. Cx:-3 FHT: Cat 1 Lames[place]:q3-4 min A/P: 1. IOL-PreEwSF. FHT 130 baseline, with moderate variability, Accelerations present Yes, and rare late deceleration . Cervical exam unchanged. Cytotec x4 placed at this time. Patient intermittently feeling contractions. BP mild range. Cx: 1--3 FHP: defer FHT: Cat I [place]ames[place]: a3-4min A/P: 1. IOL-PreEwSF: FHT Category I, [...] Cx: unchanged FHP: defer FHT: Cat I [place]: q4min A/P: 1. IOL-PreEwSF: FHT Category I, [...] 11/29/2022 6:17 AM Cx:1-2/60/-3 FHT: Cat I [place]:q4-5mins A/P: 1. IOL-PreEwSF: Cat I FHT with [...] per protocol. CCM. Cx:defer FHT: Cat I [place]ames[place]:q4-6mins A/P: 1. IOL-PreEwSF: Cat I FHT with baseline 120, moderate variability, spontaneous accelerations, and no decelerations. BP normotensive to mild range since last note time. Pitocin @ 2 cc/hr, continue to titrate per protocol. Magnesium sulfate running for seizure prophylaxis, UOP 400 ml over past 4 hours. CCM. Cx:defer FHT: Cat I [place]ames[place]:q4-5mins A/P: 1. IOL-PreEwSF: Cat I FHT with baseline 135, moderate variability, spontaneous accelerations, and no decelerations. BP normotensive to mild range since last note time. Pitocin @ 6 cc/hr, continue to titrate per protocol. Magnesium sulfate running for seizure prophylaxis, UOP 600 ml over past 4 hours. Will plan for AROM soon. CCM. Cx:defer FHT: Cat I [place]ames[place]:irritability A/P: 1. IOL-PreEwSF: Pit @ 8 mu/min. Patient resting comfortably and only irritability tracing on toco. BP most recently mild range. On magnesium sulfate for seizure prophylaxis. UOP adequate. Continue magnesium and continue to titrate pitocin per protocol. Plan for AROM once patient rudi more regularly. Electronically signed by Cortney Velasquez DO 11/29/2022 4:21 PM Cx:/-3 FHT: Cat 1 [place]ames[place]:Not tracing A/P: 1. IOL-PreEwSF. FHT 135 baseline, with moderate variability, Accelerations present Yes, and no decelerations seen . AROM at this time for moderate amount blood tinged fluid. Pitocin at 8cc/hr. Maternal BP mild range. On Magnesium for Seizure prophylaxis. Patient with adequate urinary output. CCM. Cx: defer FHP: defer FHT: Cat II [place]ames[place]: not tracing well A/P: 1. IOL-PreEwSF: FHT Category II for brief period of lates vs early deceleration (more content not included)...[facility]01-03-2023 NoteObstetrical History and Physical CHIEF COMPLAINT: [...] 34w6d Is this patient being delivered between 39a1d-81m1q weeks with an acceptable medical indication (obstetric, maternal, and/or )? NA: Not Applicable: This patient is being delivered outside of the PC-01 range (08x9c-86k0h) for reasons indicated in the medical record. [...] VTE Prophylaxis: Not Indicated (more content not included)...[facility]01-03-2023 History and physical note* Cassie Constantino [...] 34w6d Is this patient being delivered between 63a6x-42v1b weeks with an acceptable medical indication (obstetric, maternal, and/or )? NA: Not Applicable: This patient is being delivered outside of the PC-01 range (98x6v-88y7q) for reasons indicated in the medical record. [...] plan. Cassie Constantino MD 11/28/2022, 12:48 AM [facility] [id number] History and physical note* Cassie Constantino MD [...] 34w6d Is this patient being delivered between 77w0j-56y7l weeks with an acceptable medical indication (obstetric, maternal, and/or )? NA: Not Applicable: This patient is being delivered outside of the PC-01 range (48l8d-45h9i) for reasons indicated in the medical record. [...] MD 11/28/2022, 12:48 AM documented in this [facility]01-02-2023 Evaluation + Plan note Extracted from:Title:OB High Risk Antepartum Visit *Author:Fredi DORSEY MD Date:11/27/22 Impression and Plan Diagnosis 34 weeks 5 days. Preeclampsia. contractions. Maternal tachycardia.. Course: Worsening, New onset headache may be a signal of worsening symptoms of preeclampsia.. Orders I discussed this case with the maternal- medicine department at [facility] [place], Dr. Thea Nieves, she accepted to transfer due to preeclampsia. 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 She is provided with a note for work. Additional diagnosis: Constipation, UTI and [facility]08-19-2022 Hospital Discharge instructions Follow Up Care 07/14/2022 06:07:36 With:Denny Meza Address:Unknown When:07/17/2022 07:24:48 With:DENNY RODRÍGUEZ Address: [address] [place] [place] [address] Business (1) When:Within 3 Day(s) [facility]08-19-2022 Hospital Discharge instructions Follow Up Care 07/14/2022 04:40:16 With:Denny Meza Address: [address], [address] [place] [address]- Business (1) When:07/17/2022 Comments:Appointment has already been scheduledCall Dr if fever>100.5 F, heavy bleedingCall for any problems.Call for severe abdominal painCall physician for heavy vaginal bleedingCall physician if symptoms worsenPlease call if you need to rescheduleReturn for contractions closer, longer, harderReturn ifruptured membranes or vaginal bleeding [facility]05-31-2022 Evaluation + Plan note Diagnostic Tests Pending * Zamih-1-Bllamqpbyeg 04/25/22 * NIGEL w/Reflex if POS 04/25/22 * Ceruloplasmin 04/25/22 * HCV Antibody RFX to Quant PCR 04/25/22 * HBV Core Ab 04/25/22 * Hepatitis B Surface Antibody 04/25/22 * Hepatitis B Surface Antigen 04/25/22 * Smooth Muscle Antibody Screen 04/25/22 [facility]05-24-2022 Evaluation note* Encounter Date Diagnosis Assessment Notes Treatment Notes Treatment Clinical Notes March, Elevated liver function tests (I CD-10 - R79.89) LABS INDICATED ABOVE [employer] Other Evaluation note* Diagnosis Pelvic pain in female- Primary Unspecified symptom associated with female genital organs documented [facility]* Diagnosis Chronic pelvic pain in female- Primary Unspecified symptom associated with female genital organs Constipation, unspecified constipation type High-tone pelvic floor dysfunction Other specified disorders of female genital organs Diastasis of rectus abdominis Dysmenorrhea Other specified dyspareunia documented in this encounter [facility]* Diagnosis Endometriosis- Primary Endometriosis, site unspecified Pelvic and perineal pain Unspecified symptom associated with female genital organs documented in this encounter [facility]* Diagnosis Pelvic pain in female- Primary Unspecified symptom associated with female genital organs documented in this encounter [facility]* Diagnosis Pelvic pain in female- Primary Unspecified symptom associated with female genital organs documented in this encounter [facility] note* Diagnosis High-tone pelvic floor dysfunction- Primary Other specified disorders of female genital organs Chronic pelvic pain in female Unspecified symptom associated with female genital organs documented in this encounter [facility] note* Diagnosis Pelvic and perineal pain Unspecified symptom associated with female genital organs documented in this encounter [facility] note* Diagnosis Menorrhagia with regular cycle Pelvic pain in female Unspecified symptom associated with female genital organs Uses control [facility]* Diagnosis Preeclampsia, severe, third trimester- Primary Preeclampsia, severe, third trimester documented [facility]* Diagnosis Pre-eclampsia, severe, delivered- Primary documented in [facility]* Diagnosis Dysmenorrhea, unspecified documented in this encounter [facility]* Diagnosis Well woman exam with routine gynecological exam Routine gynecological examination [facility]* Diagnosis Hypertension, unspecified type (CMS/HCC)- Primary Paroxysmal tachycardia, unspecified (CMS/HCC) Paroxysmal tachycardia, unspecified Chronic right shoulder pain Pain in joint, shoulder region Scapular dyskinesis Lack of coordination [facility]* Diagnosis Pain in female genitalia on intercourse Dyspareunia Endometriosis Endometriosis, site unspecified documented in this encounter [facility] HealthcareEvaluation noteNo assessment information availableRegency [facility] Work Phone: Evaluation note* Diagnosis Missed menses , unspecified gestational age Encounter for supervision of normal first in first trimester documented in this encounter [facility]* Diagnosis Nonintractable episodic headache, unspecified headache type- Primary Second trimester ([facility] state, incidental 13 weeks gestation of ([facility] documented [facility] this encounter [facility] HealthcareEvaluation note* Diagnosis Sinusitis, unspecified chronicity, unspecified location- Primary Second trimester ([facility]) state, incidental 17 weeks gestation of ([facility]) Screening, , for anatomic survey ([facility]) Encounter for anatomic survey documented in this encounter [facility]* Diagnosis 20 weeks gestation of ([facility]) Second trimester ([facility]) state, incidental Diabetes mellitus screening Screening for diabetes mellitus documented in this encounter [facility]* Diagnosis Wellness examination- Primary Hypertension, unspecified type Lipid screening Screening for lipoid disorders documented in this encounter [facility]* Diagnosis Wellness examination- Primary Hypertension, unspecified type Lipid screening Screening for lipoid disorders 24 weeks gestation of ([facility]) Second trimester ([facility]) state, incidental Elevated glucose tolerance test Impaired glucose tolerance test documented in this encounter [facility]* Diagnosis Gestational diabetes mellitus (GDM) in second trimester, gestational diabetes method of control unspecified [facility] Diagnosis Wellness examination- Primary Hypertension, unspecified type Lipid screening Screening for lipoid disorders 26 weeks gestation of ([facility]) Second trimester ([facility]) state, incidental induced hypertension, antepartum ([facility]) Transient hypertension of , antepartum Gestational diabetes mellitus (GDM) in second trimester, gestational diabetes method of control unspecified ([facility]) documented in this encounter [facility]* Diagnosis Wellness examination- Primary Hypertension, unspecified type Lipid screening Screening for lipoid disorders Hypertension affecting , antepartum ([facility])- Primary 27 weeks gestation of ([facility]) Second trimester ([facility]) state, incidental documented in this encounter [facility]* Diagnosis Diet controlled gestational diabetes mellitus (GDM) in second trimester- Primary Essential hypertension affecting in third trimester [facility] Diagnosis 28 weeks gestation of - Primary Insulin controlled gestational diabetes mellitus (GDM) in second trimester Essential hypertension affecting in third trimester documented in this encounter [facility] SystemEvaluation note* Diagnosis Essential hypertension affecting in third trimester [facility] Diagnosis Wellness examination- Primary Hypertension, unspecified type Lipid screening Screening for lipoid disorders 29 weeks gestation of ([facility]) Third trimester ([facility]) state, incidental Hypertension affecting , antepartum ([facility]) Gestational diabetes mellitus (GDM), antepartum, gestational diabetes method of control unspecified([facility]) documented in this encounter [facility] HealthcareEvaluation note* Diagnosis Insulin controlled gestational diabetes mellitus (GDM) in third trimester- Primary Essential hypertension affecting in third trimester documented in this encounter [facility] SystemEvaluation note* Diagnosis Insulin controlled gestational diabetes mellitus (GDM) in second trimester documented in this encounter [facility] SystemEvaluation note* Diagnosis Insulin controlled gestational diabetes mellitus (GDM) in second trimester documented in this encounter [facility] SystemEvaluation note* Diagnosis Wellness examination- Primary Hypertension, unspecified type Lipid screening Screening for lipoid disorders Third trimester ([facility]) state, incidental 31 weeks gestation of ([facility]) Pre-eclampsia in third trimester ([facility]) documented in this encounter [facility] HealthcareEvaluation note* Diagnosis Insulin controlled gestational diabetes mellitus (GDM) in third trimester- Primary Essential hypertension affecting in third trimester documented in this encounter [facility] SystemHistory general Narrative - Reported* Type Description Date Medical History headache Surgical HistoryappendectomySurgical Historyshoulder surgerySurgical History endometriosis [employer] Other History of Present illness Narrative* 26 [...] engaged x 1 year * working at [employer] in [place] [address] Work Phone: Hospital course Narrative No data available for this section [facility] No data available for this section [facility] DublinInstructionsNot on filedocumented in this encounter [facility]ructionsNot on filedocumented in this encounter [facility] SystemInstructionsNot on filedocumented in this encounter [facility] SystemInstructionsNot on filedocumented in this encounter [facility]* Attachments The following attachments cannot be sent through Care Everywhere. * Preeclampsia ([place]) documented in this encounter[facility] SystemInstructionsNot on file documented in this encounterProMedica Health SystemInstructionsNot on file documented in this encounterProMedica Health SystemInstructionsNot on file documented in this encounterProMedica Health SystemInstructionsNot on file documented in this encounterProMedica Health SystemProgress note No data available for this section [facility] DublinReason for visit NarrativePT HERE AT REQUEST OF DR RODRÍGUEZ FOR EVALUATION AND TREATMENT OF ELVATED LIVER FUNCTION- ( DR. SAMUEL PT), LABS FROM DR RODRÍGUEZ REVIEWED BY DR Iraheta Sweet Cred Other Summary Purpose Family History Unknown Family [...] Bilateral ureterolysis Surgeon: Dr. Charlene Rodriguez Resident/Fellow/Other [employer] Human[employer] Teacher: Glory Palacio Anesthesia: general I.V. Fluids: 500 [...] to discuss pain related to endometriosis, declined bottom steep tender. ARCHITECTURAL INTERN Reason for Referral SpecialtyDiagnoses / ProceduresReferred By ContactReferred To ContactMR IMAGING Diagnoses Pelvic and perineal pain Procedures MRI FEMALE PELVIS WO/W IVCON MRI PELVIS W/O & W/CONTRAST MATERIAL Charlene Rodriguez DO [address] [facility] [address] [place] [address] Mr Imaging Referral IDStatusReasonGuayama DateExpiration DateVisits RequestedVisits [id number] Auto-Generated Referral /[id number] / ProceduresReferred By ContactReferred To 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 [address] [facility] [address] [place] [address] [facility] [place] [address] [place] [id number] Referral IDStatLulacaterina DateExpiration DateVisits RequestedVisits [id number] Review Auto-Generated Referral / Chief Complaint and Reason for Visit Chief Complaint Admit Date N94.10 N80.9 February 02, 2025 3:1 6pm Additional Source Comments INFORMATION SOURCE (unrecogn ized section and content) DATE CREATED AUTHOR 10/26/2020 [facility] DATE CREATED AUTHOR AUTHOR'S ORGANIZ ATION 11/06/2020 [facility] DATE CREATED AUTHOR AUTHOR'S ORGANIZ ATION 12/17/2020 [facility] DATE CREATED AUTHOR AUTHOR'S ORGANIZ ATION 04/21/2021 [facility] DATE CREATED AUTHOR AUTHOR'S ORGANIZ ATION 06/05/2021 [facility] DATE CREATED AUTHOR AUTHOR'S ORGANIZ ATION 10/02/2021 [facility] DATE CREATED AUTHOR AUTHOR'S ORGANIZ ATION 02/10/2022 [facility] DATE CREATED AUTHOR AUTHOR'S ORGANIZ ATION 12/05/2022 [facility] DATE CREATED AUTHOR AUTHOR'S ORGANIZ ATION 04/30/2024 [facility] DATE CREATED AUTHOR AUTHOR'S ORGANIZ ATION 02/09/2025 [facility] DATE CREATED AUTHOR AUTHOR'S ORGANIZ ATION 03/15/2025 [facility] DATE CREATED AUTHOR AUTHOR'S ORGANIZ ATION 08/03/2025 [facility] DATE CREATED AUTHOR AUTHOR'S ORGANIZ ATION 08/13/2025 [facility] DATE CREATED AUTHOR AUTHOR'S ORGANIZ ATION 08/16/2025 [facility] DATE CREATED AUTHOR AUTHOR'S ORGANIZ ATION 08/20/2025 [facility] DATE CREATED AUTHOR AUTHOR'S ORGANIZ ATION 08/21/2025 [facility] DATE CREATED AUTHOR AUTHOR'S ORGANIZ ATION 08/29/2025 [facility] DATE CREATED AUTHOR AUTHOR'S ORGANIZ ATION 09/12/2025 [facility] DATE CREATED AUTHOR AUTHOR'S ORGANIZ ATION 10/02/2025 [facility] DATE CREATED AUTHOR AUTHOR'S ORGANIZ ATION 10/08/2025 [facility] Care Team (unrecognized sect ion and content) Team MemberRelationshipSpecialtyStart DateEnd Date Denny Rodríguez MD [address] [place] [phone] PCP - GeneralFamily Medicine12/03/14Team MemberRelationshipSpecialtyStart DateEnd Date Denny Rodríguez MD [address] [place] [address] PCP - GeneralFamily Medicine12/03/14Team MemberRelationshipSpecialtyStart DateEnd Date Denny Rodríguez MD [address] [place] [address] PCP - GeneralFamily Medicine12/03/14Team MemberRelationshipSpecialtyStart DateEnd Date Denny Rodríguez MD [address] [place] [address] PCP - GeneralFamily Medicine12/03/14Team MemberRelationshipSpecialtyStart DateEnd Date Denny Rodríguez MD [address] [place] [phone] PCP - GeneralFamily Medicine12/03/14Team MemberRelationshipSpecialtyStart DateEnd Date Denny Rodríguez MD [address] [place] [address] PCP - GeneralFamily Medicine12/03/14Team MemberRelationshipSpecialtyStart DateEnd Date Denny Rodríguez MD [address] [place] [address] PCP - GeneralFamily Medicine12/03/14Team MemberRelationshipSpecialtyStart DateEnd Date Denny Rodríguez MD [address] [place] [address] PCP - GeneralFamily Medicine12/03/14Team MemberRelationshipSpecialtyStart DateEnd Date Denny Rodríguez MD [address] [place] [phone] PCP - GeneralFamily Medicine12/03/14Team MemberRelationshipSpecialtyStart DateEnd Date Denny Rodríguez MD [address] [place] [address] P[facility] - [facility] Medicine12/03/14Team MemberRelationshipSpecialtyStart DateEnd Date Denny Rodríguez MD [address] [place] [address] PCP - [place] Bwjdkpzned80/1/21 Denny Rodríguez MD [address] [place] [address] PCP - GeneralFancly Medicine04/10/23 Denny Rodríguez MD [address] [place] [address] PCP - [facility]02/24/23 [facility] NP [address] [place] [address] Nurse [facility]10/05/23 Trista Thao NP [address] [place] [address] Nurse PractitionerPulmonary Kncsyfi12/10/23Team MemberRelationshipSpecialtyStart DateEnd Date Denny Rodríguez MD [address] [place] [phone] PCP - GeneralFamily Medicine12/03/14Team MemberRelationshipSpecialtyStart DateEnd Date Denny Rodríguez MD [address] [place] [phone] PCP - [facility]ally Medicine12/03/14Team MemberRelationshipSpecialtyStart DateEnd Date Denny Rodríguez MD [address] [place] [id number] PCP - [place] Mnnnubnotx93/1/21 Denny Rodríguez MD [address] [place] [facility] PCP - [facility]02/24/23 Eliceo Beltran DO [address] [place] [address] PCP - Generalmily Medicine02/14/24Team MemberRelationshipSpecialtyStart DateEnd Date Denny Rodríguez MD [address] [place] [address] PCP - [place] Wguqphjqeg19/1/21 Denny Rodríguez MD [address] [place] [address] PCP - [facility]02/24/23 Eliceo Beltran DO [address] [place] [address] PCP - [facility] Medicine02/14/24Team MemberRelationshipSpecialtyStart DateEnd Date Denny Rodríguez MD [address] [place] [address] PCP - [place] Mgqsrwvnen68/1/21 Denny Rodríguez MD [address] [place] [address] PCP - [facility]02/24/23 Eliceo Beltran DO [address] [place] [address] PCP - [facility]02/14/24Team MemberRelationshipSpecialtyStart DateEnd Date Denny Rodríguez MD [address] [place] [address] PCP - [place] Egeqbitfip61/1/21 Denny Rodríguez MD [address] [place] [address] PCP - [facility]02/24/23 Eliceo Beltran DO [address] [place] [address] PCP - [facility]02/14/24Team MemberRelationshipSpecialtyStart DateEnd Date Denny Rodríguez MD [address] [place] [address] PCP - [place] Gorgcaizqr96/1/21 Denny Rodríguez MD [address] [place] [address] PCP - [facility]02/24/23 Eliceo Beltran DO [address] [place] [address] PCP - GeneralFamily Medicine02/14/24Team MemberRelationshipSpecialtyStart DateEnd Date Denny Rodríguez MD [address] [place] [address] PCP - [place] Qvyinlujhw72/1/21 Eliceo Beltran DO [address] [place] [address] PCP - Generalmily Medicine02/14/24Team MemberRelationshipSpecialtyStart DateEnd Date Eliceo Beltran DO [address] [place] [address] PCP - GeneralFamily Medicine02/14/24Team MemberRelationshipSpecialtyStart DateEnd Date Eliceo Beltran DO [address] [place] [address] PCP - Generalmily Medicine02/14/24 Team Status: Active Member Role Status Dates Denny Rodríguez MD Primary Care Provider Active Team Status: Inactive Member Role Status Dates Denny Rodríguez MD Primary Care Provider Active S tart: February 02, 2025 End: February 02aminta Pop DOAttending ProviderActiveStart: February 02, 2025 End: February 02, 2025Team MemberRelationshipSpecialtyStart DateEnd Date Eliceo Beltran DO [address] [place] [address] PCP - [facility] Medicine02/14/24 Eliceo Beltran DO [address] [place] [address] PCP - [facility] [place] [employer]07/27/2412Team MemberRelationshipSpecialty Start DateEnd Date Eliceo Beltran DO [address] [place] [address] PCP - [facility] Medicine02/14/24 Eliceo Beltran DO [address] [place] [address] PCP - [facility] [place] [employer]07/27/2412Team MemberRelationshipSpecialty Start DateEnd Date Eliceo Beltran DO [address] [place] [address] PCP - [facility]02/14/24 Eliceo Beltran DO [address] [place] [address] PCP - [facility] [place] [employer]07/27/2412Team MemberRelationshipSpecialty Start DateEnd Date Eliceo Beltran DO [address] [place] [address] PCP - [facility]02/14/24 Eliceo Beltran DO [address] [place] [address] PCP - [facility] [place] [employer]07/27/2412Te MemberRelationshipSpecialty Start DateEnd Date Eliceo Beltran, DO [address] [place] [address] PCP - [facility]02/14/24 Eliceo Beltran, DO [address] [place] [address] PCP - [facility] [place] [employer]07/27/2412Team MemberRelationshipSpecialty Start DateEnd Date Eliceo Beltran, DO [address] [place] [address] PCP - [facility]02/14/24 Eliceo Beltran, DO [address] [place] [address] PCP - [facility] [place] [employer]07/27/2412Team MemberRelationshipSpecialty Start DateEnd Date Eliceo Beltran, DO [address] [place] [address] PCP - [facility]02/14/24 Eliceo Beltran, DO [address] [place] [address] PCP - [facility] [place] [employer]07/27/2412Te MemberRelationshipSpecialty Start DateEnd Date Eliceo Beltran, DO [address] [place] [address] PCP - Generalmily Medicine02/14/24 Eliceo Beltran, [address] [place] [address] PCP - [facility] [place] [employer]07/27/2412Team MemberRelationshipSpecialty Start DateEnd Date Eliceo Beltran DO [address] [place] [address] PCP - [facility]02/14/24 Eliceo Beltran, [address] [place] [address] PCP - [facility] [place] [employer]07/27/2412Team MemberRelationshipSpecialty Start DateEnd Date Eliceo Beltran DO [address] [place] [address] PCP - [facility]02/14/24 Eliceo Beltran DO [address] [place] [address] PCP - [facility] [place] [employer]07/27/2412Team MemberRelationshipSpecialty Start DateEnd Date Eliceo Beltran DO [address] [place] [address] PCP - [facility]02/14/24 Eliceo Beltran DO [address] [place] [address] PCP - [facility] [place] [employer]07/27/2412Team MemberRelationshipSpecialty Start DateEnd Date Denny Rodríguez MD [address] [place] [address] PCP - [facility] Medicine12/02/18 MemberRelationshipSpecialtyStart DateEnd Date Denny Rodríguez MD [address] [place] [address] PCP - [facility] Medicine12/02/18 MemberRelationshipSpecialtyStart DateEnd Date Eliceo Beltran, DO [address] [place] [address] PCP - [facility]02/14/24 Eliceo Beltran, DO [address] [place] [address] PCP - [facility] [place] [employer]07/27/2412Te MemberRelationshipSpecialty Start DateEnd Date Eliceo Beltran, DO [address] [place] [address] PCP - [facility]02/14/24 Eliceo Beltran, DO [address] [place] [address] PCP - [facility] [place] [employer]07/27/2412Te MemberRelationshipSpecialty Start DateEnd Date Eliceo Beltran, DO [address] [place] [address] PCP - [facility]02/14/24 Eliceo Beltran, DO [address] [place] [address] PCP - [facility] [place] [employer]07/27/2412Team MemberRelationshipSpecialty Start DateEnd Date Eliceo Beltran DO [address] [place] [address] PCP - GeneralFamily Medicine02/14/24 Eliceo Beltran DO [address] [place] [address] PCP - [facility] [place] [employer]07/27/2412Team MemberRelationshipSpecialty Start DateEnd Date Denny Rodríguez MD [address] [place] [address] PCP - GeneralFamily Medicine12/02/18Team MemberRelationshipSpecialtyStart DateEnd Date Eliceo Beltran DO [address] [place] [address] PCP - GeneralFamily Medicine02/14/24 Eliceo Beltran DO [address] [place] [address] PCP - [facility] [place] [employer]07/27/2412Team MemberRelationshipSpecialty Start DateEnd Date Eliceo Beltran DO [address] [place] [address] PCP - GeneralFamily Medicine02/14/24 Eliceo Beltran DO [address] [place] [address] PCP - [facility] [place] [employer]07/27/2412Team MemberRelationshipSpecialty Start DateEnd Date Denny Rodríguez MD [address] [place] [address] PCP - Generalmily Medicine12/02/18Team MemberRelationshipSpecialtyStart DateEnd Date Denny Rodríguez MD [address] [place] [address] PCP - [facility]12/02/18Team MemberRelationshipSpecialtyStart DateEnd Date Eliceo Beltran DO [address] [place] [address] [facility]/14/24 Eliceo Beltran DO [address] [place] [address] PCP - [facility] [place] [employer]07/27/2412Team MemberRelationshipSpecialty Start DateEnd Date Eliceo Beltran DO [address] [place] [address] PCP - [facility] Medicine02/14/24 Eliceo Beltran DO [address] [place] [address] PCP - [facility] [place] [employer]07/27/2412Team MemberRelationshipSpecialty Start DateEnd Date Denny Rodríguez MD [address] [place] [address] [facility] - [facility]12/02/18Team MemberRelationshipSpecialtyStart DateEnd Date Denny Rodríguez MD [address] [place] [address] PCP - GeneralFamily Medicine12/02/18Team MemberRelationshipSpecialtyStcumberland center DateEnd Date Denny Rodríguez MD [address] [place] [address] PCP - [place] Lrpzrkrgel40/1/ Denny Rodríguez MD [address] [place] [address] PCP - GeneralFamily Medicine Denny Rodríguez MD [address] [place] [address] PCP - [facility] Eliceo Beltran DO [address] [place] [address] P[facility] - [facility]02/14/24 Eliceo Beltran DO [address] [place] [address] PCP - [facility] [place] [employer]07/27/2412 [facility] NP [address] [place] [address] Nurse PractitionerFamily Rgboktky86/10/235 Trista Thao NP [address] [place] [address] Nurse PractitionerPulmonary Wqogfkx87/10/235Team MemberRelationship SpecialtyStart DateEnd Date Eliceo Beltran DO [address] [place] [address] PCP - GeneralFamily Medicine02/14/24 Eliceo Beltran [address] [place] [address] PCP - [facility] [place] [employer]07/27/2412Team MemberRelationshipSpecialty Start DateEnd Date Denny Rodríguez MD [address] [place] [address] PCP - GeneralFamily Medicine12/02/18 Source Comments (unrecognize d section and content) In the event this informatio n is protected by the Federal Confidentiality of Alcohol and Drug Abuse Patient Records regulations: The Federal rules restrict any use of the information to criminally investigate or prosecute any alcohol or drug abuse patient.[facility] the event this information is protected by the Federal Confidentiality of Alcohol and Drug Abuse Patient Records regulations: The Federal rules restrict any use of the information to criminally investigate or prosecute any alcohol or drug abuse patient.[facility] the event this information is protected by the Federal Confidentiality of Alcohol and Drug Abuse Patient Records regulations: The Federal rules restrict any use of the information to criminally investigate or prosecute any alcohol or drug abuse patient.[facility] HospitalIn the event this information is protected by the Federal Confidentiality of Alcohol and Drug Abuse Patient Records regulations: The Federal rules restrict any use of the information to criminally investigate or prosecute any alcohol or drug abuse patient.[facility] Hospital[facility] the event this information is protected by the Federal Confidentiality of Alcohol and Drug Abuse Patient Records regulations: The Federal rules restrict any use of the information to criminally investigate or prosecute any alcohol or drug abuse patient.[facility] HospitalIn the event this information is [...] or prosecute any alcohol or drug abuse patient.[facility] HospitalIn the event this information is protected by the Federal Confidentiality of Alcohol and Drug Abuse Patient Records regulations: The Federal rules restrict any use of the information to criminally investigate or prosecute any alcohol or drug abuse patient.[facility] HospitalIn the event this information is protected by the Federal Confidentiality of Alcohol and Drug Abuse Patient Records regulations: The Federal rules restrict any use of the information to criminally investigate or prosecute any alcohol or drug abuse patient.[facility] HospitalIn the event this information is protected by the Federal Confidentiality of Alcohol and Drug Abuse Patient Records regulations: The Federal rules restrict any use of the information to criminally investigate or prosecute any alcohol or drug abuse patient.[facility] HospitalIn the event this information is protected by the Federal Confidentiality of Alcohol and Drug Abuse Patient Records regulations: The Federal rules restrict any use of the information to criminally investigate or prosecute any alcohol or drug abuse patient.[facility] HospitalIn the event this information is protected by the Federal Confidentiality of Alcohol and Drug Abuse Patient Records regulations: The Federal rules restrict any use of the information to criminally investigate or prosecute any alcohol or drug abuse patient.[facility] HospitalIn the event this information is protected by the Federal Confidentiality of Alcohol and Drug Abuse Patient Records regulations: The Federal rules restrict any use of the information to criminally investigate or prosecute any alcohol or drug abuse patient.[facility] HospitalIn the event this information is protected by the Federal Confidentiality of Alcohol and Drug Abuse Patient Records regulations: The Federal rules restrict any use of the information to criminally investigate or prosecute any alcohol or drug abuse patient.[facility] HospitalIn the event this information is protected by the Federal Confidentiality of Alcohol and Drug Abuse Patient Records regulations: The Federal rules restrict any use of the information to criminally investigate or prosecute any alcohol or drug abuse patient.[facility] Reason for Visit (unrecogniz ed section and content) ReasonCommentsMenstrual ProblemReasonCommentsVaginal BleedingReasonComments EndometriosisReasonCommentsInsurance AuthorizationOrilissaReasonCommentsPelvic PainSpecialtyDiagnoses / ProceduresReferred By ContactReferred To ContactOB/MACHINE BASTER / GYNECOLOGY Diagnoses Painful menstrual periods Painful Periods Procedures OFFICE/OUTPATIENT ESTABLISHED SF MDM 10-19 MIN EST WHI PATIENT Jihan Downs, CERTIFIED TUMOR REGISTRAR.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 [address] [place] [phone] Jihan Downs, CERTIFIED TUMOR REGISTRAR.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 TEACHER [address] [place] [phone] Referral IDStatusReasonStart DateExpiration DateVisits RequestedVisits [id number]/25/202312/[id number] MRI SpecialtyDiagnoses / ProceduresReferred By ContactReferred To ContactMR IMAGING Diagnoses Pelvic and perineal pain Procedures MRI FEMALE PELVIS WO/W IVCON MRI PELVIS W/O & W/CONTRAST MATERIAL Charlene Rodriguez DO [address] [facility] [address] [place] [address] Mr Imaging [place] [address] Referral IDStatusReasonStart DateExpiration DateVisits RequestedVisits [id number] Auto-Generated Referral /[id number] DateCommentsRefill Kdzvjwz7501/02/2024eason CommentsMenorrhagiaCramping with bleedingReasonCommentsSurgery Cancelled SpecialtyDiagnoses / ProceduresReferred By ContactReferred To Contact Diagnoses Preeclampsia, severe, third trimester Procedures O14.13 - Preeclampsia, severe, third trimester Kathe Ryder, [address] [place] [address] [facility] [address] [place] [address] Referral IDStatusReasonStart DateExpiration DateVisits RequestedVisits [id number] Pressure CheckReasonCommentsDysmenorrhea ReasonCommentsWell Women VisitReasonCommentsShoulder PainReasonCommentsPainful IntercourseReasonCommentsAmenorrheaReasonCommentsRoutine VisitReason CommentsGestational DiabetesSpecialtyDiagnoses / ProceduresReferred By Contact Referred To ContactMaternal and Medicine Diagnoses Gestational diabetes mellitus (GDM) in second trimester, gestational diabetes method of control unspecified Nathan Pop, DO [address] [place] [address] [place] [address] Phone: tel: fax: M[facility]- Medicine at [facility] [address] [place] [address] Phone: tel: fax: Referral IDStatusReasonStart DateExpiration DateVisits RequestedVisits [id number] Review Specialty Services Required /635164PdlkgkXuxkmughSGD consult Scheduled Active and Recently Administ ered [...] every 2-3 minutes with cervical changes or Hugo units (MVU) greater than 200 in a [...] BE BASED ON THE PRIMARY CLINICAL RECORDS. [employer]. provides no warranty or guarantee of the accuracy or completeness of information in this document.
[2025-10-21 10:10] VITALS: BP 124/80; PULSE 100
== END 2025-10-21 10:59 | disposition home or self-care (01) ==
LOC: FBCO 10:02 → FBC 10:04
PROVIDERS: Family Provider Family Medicine; PCP Family Medicine; Visit Provider Obstetrics & Gynecology
DX: O24.419 Gestational diabetes mellitus in pregnancy, unspecified control (principal); Z3A.34 34 weeks gestation of pregnancy
CPT/HCPCS: 59025

== ENCOUNTER 2025-10-24 10:06 | Outpatient (OUT) | payer OTHER, SELFPAY ==
--- OUTSIDE RECORDS SUMMARY | 2025-10-14 15:30 | XMS_ITS | Encounter Summary ---
Author Organization [facility] Address [address] [place] [address] Care Team Providers Care Physical Education Aide Name Role Phone CharlotteEliceo medina Primary Care Provider [phone] Charlottecarol Eliceo Hurtado DO Unavailable [phone] Encounter Details DateTypeDepartmentCare Team (Latest Contact Info)Skiywhtsvzs97/19/2025 3:30 PM ESTRoutine [facility] [address] [place] [address] Nathan Ppo DO [address] [facility] [address] Armstrong, [facility]11 33 weeks gestation of ([facility]); Third trimester ([facility]) Social History Tobacco UseTypesPacks/DayYears UsedDateSmoking Tobacco: NeverSmokeless Tobacco: NeverAlcohol UseStandard Drinks/WeekCommentsNever0 (1 standard drink = 0.6 oz pure alcohol)caffeine: 1-2 cups per day, coffee and xfiX2704 Health Literacy AnswerDate RecordedHow often do you [...] relatives?Once a week12/29/2024How often do you attend jew or evangelical services?Patient drhgcuav31/03/2025Do you belong to any clubs or organizations such as jew groups, unions, fraPriva Security Corporation or athletic leodan ups, or school groups?No12/29/2024How often do you attend meetings of the clubs or organizations you belong to?Patient cyzkvhor57/03/2025re you , , , , never , [...] all12/29/2024PHQ-2AnswerDate RecordedPatient Health Questionnaire-2 Score0 07/30/2025[facility] [place] of Occupational Health - Occupational Stress QuestionnaireAnswerDate RecordedDo you feel stress - tense, restless, nervous, or anxious, or unable to sleep at night because yourmind is troubled all the time - these days?Only a sapnyl6012/29/2024Exercise Vital SignAnswerDate Recorded On average, how many [...] place to sleep or slept in [facility] (including now)?No09/19/2023Housing Stability Vital SignAnswerDate [...] the highest degree you have received?High school bmyaqdas83/29/2023 Estimated Date of ZonxhtzuAbyalqheTtx57/03/2026ased on last menstrual period of 02/21/2025Sex and Gender InformationValueDate RecordedSex Assigned at BirthNot on fileLegal PozSkeicx62/15/2023 7:18 PM EDTGender IdentityNot on file Sexual OrientationNot on 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 Not on fileNot on fileNot on filedocumented as of this encounter Last Filed Vital Signs Vital SignReadingTime TakenCommentsBlood Syicprxk281/8411 3:29 PM EST Pulse--Temperature--Respiratory Rate--Oxygen Saturation--Inhaled Oxygen Concentration--Wmvsyk94.3 kg (168 lb 1.9 oz)10/14/2025 3:29 PM [...] 02/19/2024 Diarrhea 03/24/2025 33 weeks gestation of ([facility]) 10/14/2025 Third trimester ([facility]) 10/14/2025 Resolved Ambulatory Problems Diagnosis Date Noted No Resolved Ambulatory Problems Past Medical History: Diagnosis Date Amenorrhea d/t oral contraceptive pills John San infection GDM (gestational diabetes mellitus) ([facility]) Headache History of menstrual cramps ([facility]) Varicella zoster Visual impairment Family History[1] [...] nursing note reviewed. Exam conducted with a edger technician present. Vitals: Estimated body mass index is 30.75 kg/m?? as calculated from the following: Height as of 07/30/25: 5' 2 . Weight as of this encounter: 168 lb 1.9 oz. BP: 122/84 Patient's last menstrual period was 02/21/2025. Assessment/Plan Encounter Diagnosis: ICD-10-CM 1. 33 weeks gestation of ([facility]) Z3A.33 POCT urinalysis dipstick manually resulted 2. Third trimester ([facility]) Z34.93 POCT urinalysis dipstick manually resulted Return [...] History: Procedure Laterality Date APPENDECTOMY 05/2016 at [facility]IL[facility] AND CURETTAGE 12/2022 retained placenta DISTAL CLAVICLE EXCISION Right 07/2018 Shoulder - open - DAP LAPAROSCOPY DIAGNOSTIC / BIOPSY / ASPIRATION / LYSIS 02/2019 endometriosis, 2020 LAPAROSCOPY DIAGNOSTIC / BIOPSY / ASPIRATION / LYSIS 02/29/2024 SHOULDER SURGERY Right open distal clavicle excision-DAP VAGINAL DELIVERY 11/2022 [3] No Known Allergies documented in this encounter Plan of Treatment DateTypeDepartmentCare Team (Latest Contact Info)Prxintsrcsa80/04/2025 9:00 AM ESTRoutine [facility] [address] [place] [address] Nathan Pop DO [address] [facility] [place] [address] documented as of this encounter Procedures Procedure NamePriorityDate/TimeAssociated DiagnosisCommentsPOCT URINALYSIS FFLJRAMRGtwugjo88/19/2025 3:40 PM EST 33 weeks gestation of ([facility]) Third trimester ([facility]) documented in this encounter Results * [...] / LateralityCollection Method / VolumeCollection Time Received OaxzKexxv78/19/2025 3:40 PM EST Narrative Authorizing ProviderResult TypeResult StatusCorey Kiesha DOPOINT OF CARE TEST ENTER/EDIT ORDERABLESFinal Result documented in this encounter Visit Diagnoses Diagnosis 33 weeks gestation of ([facility]) Third trimester ([facility]) state, incidental documented in this encounter Care Teams Team MemberRelationshipSpecialtyStart DateEnd Date Eliceo Beltran DO [address] [place] [address] PCP - GeneralFamily Medicine02/14/24 Eliceo Beltran DO [address] [place] [address] PCP - Medical [employer]07/27/2412documented as of this encounter
--- NOTE | 2025-10-24 10:07 | US_ITS ---
[place] [id number] Patient Name: JUHI HOPE MRN: [id number] date: 1995 Sex: F Assigned Patient Location: Current Patient Location: Accession/Order Number: [id number] Exam Date: 10/24/2025 10:08 Report Date: 10/24/2025 10:38 At the request of: MARBELLA HUNTER Procedure: US OB BPP w non-stress US OB BPP w non-stress 10/24/2025 10:24 AM SIGNS AND SYMPTOMS: ^Gestational diabetes mellitus PROTOCOL: Transabdominal sonographic imaging of the gravid uterus COMPARISON: 10/10/2025 FINDINGS: Estimated gestational age: 35 weeks 0 days heart rate: 139 bpm. Amniotic fluid index: 14.02 cm. The deepest vertical pocket measures 4.3 cm. Incidental note is made of a nuchal cord. Biophysical profile: breathing movements: 2/2 Gross body movements: 2/2 tone: 2/2 Amniotic fluid volume: 2/2 US/US OB BPP w non-stress IMPRESSION: Biophysical profile: 8/8 Incidental note is made of a nuchal cord. Impression dictated by: Will Faria M.D. 10/24/2025 10:38 AM Dictation Location: [facility] Electronically authenticated by: [id number] Y Date: 10/24/2025 10:38
--- OUTSIDE RECORDS SUMMARY | 2025-10-24 10:09 | XMS_ITS | Encounter Summary ---
Author Organization [facility] Address [address] [place] [address] Care Team Providers Care Asbestos Microscopist Name Role Phone Eliceo Beltran Primary Care Provider [phone] CharlottegeovaniEliceo kauffman Unavailable [phone] Encounter Details DateTypeDepartmentCare Team (Latest Contact Info)Mbncywmojhb43/22/2025Clinisync Result Encounter [facility] External Department Unsolicited Steph Keane, DEVYN [address] [facility] [place] [address] Social History Tobacco UseTypesPacks/DayYears UsedDateSmoking Tobacco: NeverSmokeless Tobacco: NeverAlcohol UseStandard Drinks/WeekCommentsNever0 (1 standard drink = 0.6 oz pure alcohol)caffeine: 1-2 cups per day, coffee and [id number] Health Literacy AnswerDate RecordedHow often do you [...] week12/29/2024How often do you attend congregation or yazidi services?Patient aqrrujwh04/03/2025Do you belong to any clubs or organizations such as congregation groups, unions, Food Reporter or athletic leodan ups, or school groups?No12/29/2024How often do you attend meetings of the clubs or organizations you belong to?Patient qfckqoae18/03/2025re you , , , , never , [...] RecordedPatient Health Questionnaire-2 Score0 07/30/2025Finhigh[facility] [place] of Occupational Health - Occupational Stress QuestionnaireAnswerDate RecordedDo you feel stress - tense, restless, nervous, or anxious, or unable to sleep at night because yourmind is troubled all the time - these days?Only a iiuwns8612/29/2024Exercise Vital SignAnswerDate Recorded On average, how many [...] the highest degree you have received?High school qaumnsyw38/29/2023 Estimated Date of ZeakmfezQfdwljczCsj30/03/2026ased on last menstrual period of 02/21/2025Sex and Gender InformationValueDate RecordedSex Assigned at BirthNot on fileLegal JzjDbflsw43/15/2023 7:18 PM EDTGender IdentityNot on file Sexual OrientationNot on 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 Not on fileNot on fileNot on filedocumented as of this encounter Plan of Treatment DateTypeDepartmentCare Team (Latest Contact Info)Zhvqfgugfyv11/04/2025 9:00 AM ESTRoutine [facility] [place] [facility] [address] [place] [phone] Nathan Pop, DO [address] [facility] [place] [address] documented as of this encounter Procedures Procedure NamePriorityDate/TimeAssociated DiagnosisCommentsUS OB BPP W NON-WCWVCU6310/17/2025 9:22 AM EST documented in this encounter Results * US OB BPP W NON-STRESS (10/17/2025 9:22 AM EST)Anatomical Region LateralityModalityOtherSpecimen (Source)Anatomical Location / Laterality Collection Method / VolumeCollection TimeReceived Time10/17/2025 9:22 AM EST Narrative 10/17/2025 9:25 AM EST [facility] ?[address] ? [place] [address] ? Ultrasound Report ? Signed ? Patient: DRISS GAMA ?MR#: [id number] ?? : 1995 ?Acct:[id number] ?? Age/Sex: 30 / F ?ADM Date: 10/17/25 ?? Loc: US ? Attending Dr: Steph Keane ? Ordering Physician: Steph Keane ?? Date of Service: 10/17/25 ?? Procedure(s): US OB BPP w non-stress ?? Accession Number(s): [id number] ? cc: Steph Keane; Yomaira BELTRAN ? [facility] ? [address] ? [place] [address] ? Patient Name: ?? DRISS Daniel GAMA ? MRN: [id number] ? date: 1995 ?Sex: F ?? Assigned Patient Location: [facility]BC ?? Current Patient Location: ? Accession/Order Number: [id number] ?? Exam Date: 10/17/2025 ??08:11 ?Report Date: 10/17/2025 ??09:22 ? At the request of: ?? STEPH ??LAKHWINDER ? Procedure: ??US OB BPP w non-stress ? Biophysical profile. ? Reason for exam: Gestational diabetes ? COMPARISON: 10/10/2025 ? TECHNIQUE: Transabdominal imaging of the gravid uterus was obtained. ? FINDINGS: The docket clerk reports a BPP of 8 out of [...] Dictation Location: RADIO-PC-18 ? Electronically authenticated by: [id number] ??Y ?? Date: 10/17/2025 ??09:22 ? Dictated By: ?Junito Mcgrath M.D. ? Signed By: ?10/17/25924 ? DD/ 1 ? TD/TT: ? Client Advocate: Procedure Note Radiology, Radiologist, - 10/17/2025 [place] [address] Ultrasound Report Signed Patient: DRISS GAMA MMR#: [id number] : 1995Acct:[id number] Age/Sex: 30 / FADM Date: 10/17/25 Loc: US Attending Dr: Steph Keane Ordering Physician: Steph Keane Date of Service: 10/17/25 Procedure(s): US OB BPP w non-stress Accession Number(s): [id number] cc: Steph Keane; Yomaira BELTRAN [address] [address] Patient Name: DRISS GAMA MRN: [id number] date: 1995 Sex: F Assigned Patient Location: [facility] Current Patient Location: Accession/Order Number: [id number] Exam Date: 10/17/2025 08:11 Report Date: 10/17/2025 09:22 At the request of: STEPH KEANE Procedure: US OB BPP w non-stress Biophysical profile. Reason for exam: Gestational diabetes COMPARISON: 10/10/2025 TECHNIQUE: Transabdominal imaging of the gravid uterus was obtained. FINDINGS: The docket clerk reports a BPP of 8 out of 8. LEONEL is normal at13.2 cm. heart rate 144 bpm. Nuchal cord is present. US/US OB BPP w non-stress IMPRESSION: BPP 8 out of 8. Nuchal cord is present. This was reported to the nurse by the anesthesiology technologist. Impression dictated by: Junito Mcgrath Jr., D.O. 10/17/2025 9:22 AM Dictation Location: [facility] Electronically authenticated by: [id number] Y Date: 9:22 Dictated By: Junito Mcgrath M.D. Signed By:10/17/25924 DD/ 1 TD/TT: Client Advocate: Authorizing ProviderResult TypeResult StatusKrtidalhealth nanticokea Lakhwinder NPCLINISYNC IMAGING Final Result documented in this encounter Visit Diagnoses Not on filedocumented in this encounter Care Teams Team MemberRelationshipSpecialtyStart DateEnd Date Eliceo Beltran DO [address] [place] [address] PCP - GeneralFami Medicine02/14/24 Eliceo Beltran DO [address] [place] [address] PCP - Medical [place] [employer]07/27/2412documented as of this encounter
--- OUTSIDE RECORDS SUMMARY | 2025-10-24 10:09 | XMS_ITS | Patient Health Record ---
Author Organization [facility] Address [address] [place] [address] Care Team Providers Care Forestry Crew Chief Name Role Phone Cruz Rodríguez Primary Care [...] Quad PFS (0.5mL Admin) 18 y/o & rcqegCwsdelz52/30/8333Mzywbqpx5564 Fluzone Quad PFS (0.5mL Admin) 6 months & oqjflLfxzkxd79/17/7695Xyiaexsh4600 Fluzone, 6mo & older, Quad MDV (0.5mL Admin)Qsultbe3807/16/20237876Kwizktif1350 Fluzone, 6mo & older, Quad PFS (0.5mL Admin)Mgnufsb36/18/2023Contraindications z2023 Fluzone, 6mo & older, Quad PFS (0.5mL Admin)Gpvnzgc80/20/2024Refused Social History Tobacco Use: Social History Observation [...] Problem Status W/U Status Risk Notes Problem Information temporarily unavailable Tachy cardia (R00.0) ActiveconfirmedProblemInformation temporarily unavailableObesity (BMI 30-39.9) (E66.9)Activeconfirmed Plan Of Treatment No Information Insurance Providers Payer Name Payer Address Payer Phone Subscriber Number Group Number Insured Name Patient Relationship to Insured Coverage Start Date Coverage End Date [facility] [address] [place] [address] [id number] Driss Woodruff Self - patient is the insured Medical Olla [facility] [address] [place] [phone] [id number], AlexisSelf - patient is the insured Medical (General) History Medical History History ICD Code Tachycardia R00.0 Surgical History Surgery Date(Month/Year) right shoulder surgery endometriosisappendectomyHospitalization History Reason Date(Month/Year) surgeries childbirth
--- OUTSIDE RECORDS SUMMARY | 2025-10-24 10:09 | XMS_ITS | Encounter Summary ---
Author Organization [facility] Address [address] [place] [address] Care Team Providers Care Custom Bow Maker Name Role Phone NirajEliceo kauffman Primary Care Provider [phone] Charlottecarol Eliceo Hurtado DO Unavailable [phone] Encounter Details DateTypeDepartmentCare Team (Latest Contact Info)Hljbactncxc58/21/2025Clinisync Result Encounter [facility] External Department Unsolicited Nathan Pop DO [address] [facility] [place] [address] Social History Tobacco UseTypesPacks/DayYears UsedDateSmoking Tobacco: NeverSmokeless Tobacco: NeverAlcohol UseStandard Drinks/WeekCommentsNever0 (1 standard drink = 0.6 oz pure alcohol)caffeine: 1-2 cups per day, coffee and rkxR4239 Health Literacy AnswerDate RecordedHow often do you [...] week12/29/2024How often do you attend mandaen or hoahaoism services?Patient jfnetghr32/03/2025Do you belong to any clubs or organizations such as mandaen groups, unions, [place] or athletic leodan ups, or school groups?No12/29/2024How often do you attend meetings of the clubs or organizations you belong to?Patient rzatvhuv77/03/2025re you , , , , never , [...] hard at all12/29/2024PHQ-2AnswerDate RecordedPatient Health Questionnaire-2 Score0 07/30/2025Fin[facility] [place] of Occupational Health - Occupational Stress QuestionnaireAnswerDate RecordedDo you feel stress - tense, restless, nervous, or anxious, or unable to sleep at night because yourmind is troubled all the time - these days?Only a gmjrii8712/29/2024Exercise Vital SignAnswerDate Recorded On average, how many [...] steady place to sleep or slept in [facility] (including now)?No09/19/2023Housing Stability Vital SignAnswerDate RecordedIn [...] the highest degree you have received?High school jfcpoqmy23/29/2023 Estimated Date of RobullrzLxtoglktXgf39/03/2026ased on last menstrual period of 02/21/2025Sex and Gender InformationValueDate RecordedSex Assigned at BirthNot on fileLegal ZfsNkbedz94/15/2023 7:18 PM EDTGender IdentityNot on file Sexual OrientationNot on 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 Not on fileNot on fileNot on filedocumented as of this encounter Plan of Treatment DateTypeDepartmentCare Team (Latest Contact Info)Muttpeihzgo15/04/2025 9:00 AM ESTRoutine [facility] [place] [facility] [address] [place] [address] Nathan Pop DO [address] [facility] [place] [address] documented as of this encounter Procedures Procedure NamePriorityDate/TimeAssociated DiagnosisCommentsURINE CULTURE - FR Ekdlass1610/16/2025 1:30 PM EST [facility] UA (CLEAN/CATCH) MOTORSPORTS TECHNICIAN/MICRO IF IND.Jiloiqz4810/16/2025 1:30 PM EST documented in this encounter [...] CLINISYNC [facility] * (ABNORMAL) [facility] UA (CLEAN/CATCH) MOTORSPORTS TECHNICIAN/MICRO IF IND. (10/16/2025 1:30 PM EST) ComponentValueRef [...] DOCLINISYNCFinal Result Performing OrganizationAddressCity/State/ZIP CodePhone Number [facility] documented in this encounter Visit Diagnoses Not on filedocumented in this encounter Care Teams Team MemberRelationshipSpecialtyStart DateEnd Date Eliceo Beltran DO [address] [place] [address] PCP - GeneralFami Medicine02/14/24 Eliceo Beltran DO [address] [place] [address] PCP - Medical [place] [employer]07/27/2412documented as of this encounter
--- OUTSIDE RECORDS SUMMARY | 2025-10-24 10:09 | XMS_ITS | CCD ---
Author Organization [facility] Care Team Providers Care Medical Researcher Name Role Phone Unavailable Unavailable POCOPAL QUINTEROS Referring Unavailable DENNY RODRÍGUEZ Primary Care Unavailable OPAL LARA Referring Unavailable DENNY RODRÍGUEZ Primary Care Unavailable DENNY RODRÍGUEZ Primary Care Physician Domo Hodges Unavailable PAOLO DIALLO Attending Unavailable KATHE RYDER Admitting Unavailable KATHE RYDER Attending Unavailable Denny Rodríguez MD Primary Care Provider Denny Rodríguez MD Unavailable Denny Rodríguez MD Primary Care Provider Denny Rdoríguez MD Unavailable [phone] Kita TEXTILE SUPERVISOR, Zenobia Unavailable Keesha TEXTILE SUPERVISOR, Trista R Unavailable [phone] Denny Rodríguez MD Primary Care Provider [...] Unavailab Denny Ross MD Primary Care Provider [phone] Kiesha DO, Nathan Attending Provider Kiesha, Nathan Admitting Unavailable Kiesha, Nathan Attending Unavailable Dickson Rodríguezian Primary Care Unavailable KIESHA, Nathan R Attending Unavailable KIESHA, Nathan R Referring Unavailable KIESHA, Nathan R Admitting Unavailable KIESHA, Anthan R Attending Unavailable KIESHA, Nathan R Admitting [...] Primary Care Unavailable Denny Rodríguez MD Unavailable [phone] Denny Rodríguez MD Primary Care Provider [phone] Denny Rodríguez MD Unavailable [phone] Kita TEXTILE SUPERVISOR, Zenobia Unavailable Keesha TEXTILE SUPERVISOR, Trista R Unavailable ELICEO BELTRAN Attending Unavailable [...] [No Known Medication Allergies]Propensity to adverse reactions (disorder)[facility] Medications Current Medications MedicationDrug Class(es)DatesSig (Normalized)Sig (Original)acetaminophen 325 mg / butalbital 50 mg / caffeine 40 mg oral tablet (14 sources)Barbiturate, Central Nervous System Stimulant, MethylxanthineStart: 02-19-2024 End: 36-00-2425kllo 1 tablet by mouth every six hours for headache ytqlffecuf-kqrhzdlqeletv-xfmkrqmg 50-325-40 MG tablet Indications: Other migraine without status migrainosus, not intractable Take 1 tablet by mouth every 6 (six) hours if needed for headaches 20 tablet 02/19/2024 05/01/2025 Discontinuedatenolol 25 mg oral tablet (4 sources)beta-Adrenergic BlockerStart: 74-48-7348kbmc 1 mg by mouth once daily atenolol 25 mg Tab mg tab(s), Oral, Daily, Refills(s) 0 Start Date: 02/02/21 Status: OrderedStart: 08-06-2017 End: 10-66-7152xfhw 1 tablet by mouth once dailyAtenolol 50 mg tablet Discontinued 50 MG PO Daily August 06, 2017 12:00am October 16, 2018 3 :34pmbaclofen suppository 10 mg (CPD) (8 sources)Start: 59-63-7564pkenlbkp suppository 10 mg (CPD) Indications: High- tone pelvic floor dysfunction , Chronic pelvic pain in female Unwrap and insert one suppository vaginally daily at bedtime. 30 Suppository 2 08/24/2023 Active Comment on above:Unwrap and insert one suppository vaginally daily at bedtime. Blood Glucose Monitoring Suppl (D-Care Glucometer) w/Device kit (20 sources)Start: 08-20-2025 End: 10-21-7321Gpoer Glucose Monitoring Suppl (D-Care Glucometer) w/Device kit Indications: Gestational diabetes mellitus (GDM), antepartum, gestational diabetes method of control unspecified ([facility]) , Elevated glucose tolerance test 1 kit Daily Use four times daily to check FSBS. In the morning prior to breakfast & 1 hour after each meal for a total of 4times daily. 1 kit 08/20/2025 08/20/2026 Activecephalexin 500 mg oral capsule (6 sources)Cephalosporin AntibacterialStart: 02-14-2021 End: 59-47-5730mpqu 1 capsule by mouth every twelve hoursKeflex 500 mg Cap 500 mg = 1 cap(s), Oral, q12hr, X 7 day(s), # 14 cap(s), Refills(s) 0 Start Date: 07/14/22 Stop Date: 07/21/22 Status: OrderedStart: 03-14-2019 End: 90-43-8546bfxl 1 capsule by mouth every twelve hoursCephalexin (Keflex) 500 mg capsule Discontinued 500 MG PO Q12H 14 March 14, 2019 12:00am August 04, 2019 8:18amcyclobenzaprine hydrochloride 5 mg oral tablet (20 sources)Muscle RelaxantStart: 12-30-2024 End: 42-82-2028iobq 1 tablet by mouth in the morning, [...] 30 tablet 12/30/2024 01/09/2025 ActiveStart: 05-01-2023 End: 81-31-9278pyte 1 tablet by mouth at bedtime as neededcyclobenzaprine (FLEXERIL) 5 mg tablet Indications: Dysmenorrhea , Chronic pelvic pain in female Take 1 tablet by mouth at bedtime as needed. 30 tablet 1 05/01/2023 ActiveStart: 78-65-4441ijva 1 tablet by mouth three times daily as needed for muscle spasms cyclobenzaprine 10 mg Tab 10 mg = 1 tab(s), Oral, TID, PRN for spasm, # 30 tab(s), Refills(s) 0, Pharmacy: [facility], 157, cm, 01/23/22 7:20:00 EST, Height/Length Dosing, 55, kg, 01/23/22 7:20:00 EST, Weight Dosing Start Date: 01/23/22 Status: Ordered Quantity: 30.0 Unit: tab(s) Repeat number: 1 Comment on above:Take 1 tablet by mouth at bedtime as needed.cyproheptadine hydrochloride 4 mg oral tablet (10 sources)Start: 28-85-7220thkd 1 mg by mouth three times dailycyproheptadine 4 mg Tab mg tab(s), Oral, TID, Refills(s) 0 Start Date: 02/02/21 Status: Ordered Repeat number: 1Dasetta oral tablet (1 source)Start: 26-48-1522cahe 1 tablet by mouth once dailyDasetta oral tablet 1 tab(s), Oral, Daily, Refill(s) 0, control/menstrual regulation Start Date: 11/23/16 Status: Ordereddocusate sodium 100 mg oral capsule (7 sources)Start: 11-30-2022 End: 08-48-2096zgpc 1 capsule by mouth twice daily as needed for constipation Docusate Sodium (DSS) 100 MG capsule Take 1 capsule (100 mg) by mouth 2 times daily as needed for constipation (Vaginal Delivery) for up to 10 days. 60 capsule 0 12/01/2022 12/31/2022 ActiveStart: 07-14-2022 End: 81-26-0695ztib 1 capsule by mouth twice dailyColace 100 mg Cap 100 mg = 1 cap(s), Oral, BID, X 10 day(s), # 20 cap(s), Refills(s) 0 Start Date: 07/14/22 Stop Date: 07/24/22 Status: Orderedelagolix 150 mg oral tablet (13 sources)Start: 07-16-2023 End: 17-87-5320vewf 1 tablet by mouth once dailyelagolix (ORILISSA) 150 mg tablet Take 1 tablet (150 mg) by mouth once daily. 30 tablet 11 07/16/2023 07/15/2024 ActiveStart: 90-39-7738wawe 1 tablet by mouth twice dailyOrilissa 200 MG Oral Tablet take 1 tablet by mouth twice a day Quantity: 60 Refills: 4 Ordered: 09-Feb-2022 Charlene Rodriguez DO Start : 09-Feb-2022 ActiveComment on above:Take 1 tablet (150 mg) by mouth once daily.ergocalciferol 0.05 mg oral capsule (1 source)Provitamin D2 CompoundStart: 88-07-3005Srlcfho D2 2000 intl units oral capsule Oral, Daily, Refills(s) 0 Start Date: 02/02/21 Status: OrderedEthinyl Estradiol / Levonorgestrel (8 sources)Progestin, Estrogen, Progestin-containing Intrauterine DeviceStart: 04-03-2024 End: 37-77-7993ebymqkdcwrvpuh-ethinyl estradiol (Jolessa) 0.15-0.03 MG tablet Indications: Uses control TAKE1 TABLET BY MOUTH EVERY MORNING 91 tablet 3 04/03/2024 08/18/2024 Discontinued (Other)Start: 43-57-1131zdzxplraegyqeq- ethinyl estradiol (Jolessa) 0.15-0.03 MG tablet Indications: Uses control TAKE1 TABLET BY MOUTH EVERY MORNING 91 tablet 3 04/03/2024 ActiveStart: 01-10-2024 End: 90-01-9951jsel 1 tablet by mouth in the morning, then take 1 tablet by mouth once dailylevonorgestrel-ethinyl estradiol (Jolessa) 0.15-0.03 MG tablet Indications: Uses control Take1 tablet by mouth in the morning. Take 1 tablet by mouth daily. 90 tablet 0 01/10/2024 04/09/2024 Activeethinyl estradiol 0.035 mg / norgestimate 0.25 mg oral tablet (4 sources)Progestin, EstrogenStart: 98-77-2819qhssptdtdijr-ethinyl estradiol (Ortho-Cyclen) 0.25-35 MG-MCG tablet 1 (one) time each day at the same time. 0 01/15/2023 ActiveStart: 41-16-0523ufng 1 tablet by mouth once dailyNorgestimate- Ethinyl Estradiol 0.25-35 mg-mcg tablet Active 1 TAB PO Daily August 04, 2019 12:00amMono-Linyah 0.25-35 MG-MCG Oral for 28 Not-TakinghydrOXYzine hydrochloride 25 mg oral tablet (10 sources)AntihistamineStart: 49-28-9236zsyk 1 mg by mouth four times daily hydrOXYzine hydrochloride 25 mg Tab mg tab(s), Oral, QID, Refills(s) 0 Start Date: 02/02/21 Status: Ordered Repeat number: 1hyoscyamine sulfate 0.125 mg oral tablet (10 sources)Start: 72-36-9115cuqa 1 tablet by mouth every six hoursLevsin 0.125 mg SL Tab 0.125 mg = 1 tab(s), Oral, q6hr, # 20 tab(s), Refills(s) 1, Pharmacy: [facility], 161, cm, 03/10/21 11:21:00 EDT, Height/Length Dosing, 56, kg, 03/10/21 11:21:00 EDT, Weight Dosing Start Date: 03/10/21 Status: Ordered Quantity: 20.0 Unit: tab(s) Repeat number: 2ibuprofen 600 mg oral tablet (15 sources)Nonsteroidal Anti-inflammatory DrugStart: 01-23-2022 End: 81-35-8904dhqw 1 tablet by mouth every six hoursibuprofen 600 mg Tab 600 mg = 1 tab(s), Oral, q6hr, # 40 tab(s), Refills(s) 0, [facility]: [facility], 157, cm, 01/23/22 7:20:00 EST, Height/Length Dosing, 55, kg, 01/23/22 7:20:00 EST, WeightDosing Start Date: 01/23/22 Status: Ordered Quantity: 40.0 Unit: tab(s) Repeat number: 1insulin glargine-yfgn (Semglee-yfgn) 100 UNIT/ML pen (8 sources)Start: 43-37-2353cwcidup glargine-yfgn (Semglee-yfgn) 100 UNIT/ML pen Inject 13 Units under the skin at bedtime 09/15/2025 Activeinsulin glargine-yfgn 100 unit/mL (3 mL) insulin pen (16 sources)Start: 78-96-3401rdpdbjd glargine-yfgn 100 unit/mL (3 mL) insulin pen Indications: Essential hypertension affecting in third trimester Prime with 2 units and give 5 units every morning and 23 units subQ at bedtime. 15 mL 3 09/28/2025 ActiveStart: 09-21-2025 End: 41-17-2033wwbvfcv glargine-yfgn 100 unit/mL (3 mL) insulin pen Indications: Essential hypertension affecting in third trimester Prime with 2 units and give 5 units every morning and 20 units subQ at bedtime. 15 mL 3 09/21/2025 09/28/2025 DiscontinuedStart: 36-51-4723plhnops glargine-yfgn 100 unit/mL (3 mL) insulin pen Indications: Essential hypertension affecting in third trimester Prime with 2 units and give 5 units every morning and 20 units subQ at bedtime. 15 mL 3 09/21/2025 ActiveStart: 09-17-2025 End: 81-41-0452iuumofg glargine-yfgn 100 unit/mL (3 mL) insulin pen Indications: Essential hypertension affecting in third trimester Prime with 2 units and give 5 units every morning and 17 units subQ at bedtime. 15 mL 3 09/17/2025 09/21/2025 DiscontinuedStart: 38-04-3853yqbpmvu glargine-yfgn 100 unit/mL (3 mL) insulin pen Indications: Essential hypertension affecting in third trimester Prime with 2 units and give 5 units every morning and 17 units subQ at bedtime. 15 mL 3 09/17/2025 ActiveStart: 09-15-2025 End: 76-21-3211nurwqul glargine-yfgn 100 unit/mL (3 mL) insulin pen Indications: Essential hypertension affecting in third trimester Prime with 2 units and give 17 units subQ at bedtime. 15 mL 3 09/15/2025 09/17/2025 Discontinued Start: 96-13-4029hivucae glargine-yfgn 100 unit/mL (3 mL) insulin pen Indications: Essential hypertension affecting in third trimester Prime with 2 units and give 17 units subQ at bedtime. 15 mL 3 09/15/2025 ActiveStart: 09-10-2025 End: 86-82-2218obpjmxq glargine-yfgn 100 unit/mL (3 mL) insulin pen Indications: Essential hypertension affecting in third trimester Prime with 2 units and give 13 units subQ at bedtime. 15 mL 3 09/10/2025 09/15/2025 Discontinued Start: 42-60-3730eaarrxz glargine-yfgn 100 unit/mL (3 mL) insulin pen Indications: Essential hypertension affecting in third trimester Prime with 2 units and give 13 units subQ at bedtime. 15 mL 3 09/10/2025 ActiveStart: 09-04-2025 End: 47-24-5377jpcicm 2 [IU] by subcutaneous injection once, then inject 10 [IU] by subcutaneous injection at bedtimeinsulin glargine-yfgn 100 unit/mL (3 mL) insulin pen Indications: Diet controlled gestational diabetes mellitus (GDM) in second trimester , Essential hypertension affecting in third trimester Prime with 2 units and give 10 units subQ at bedtime. 15 mL 3 09/04/2025 09/10/2025 DiscontinuedStart: 80-52-5230xbxxdv 2 [IU] by subcutaneous injection once, then inject 10 [IU] by subcutaneous injection at bedtimeinsulin glargine- yfgn 100 unit/mL (3 mL) insulin pen Indications: Diet controlled gestational diabetes mellitus (GDM) in second trimester , Essential hypertension affecting in third trimester Prime with 2 units and give 10 units subQ at bedtime. 15 mL 3 09/04/2025 Activeisopropyl alcohol 0.7 ml/ml medicated pad (20 sources)Start: 64-79-8612Isgvtwp Swabs (Alcohol Prep Pad) 70 % pads Indications: Gestational diabetes mellitus (GDM), antepartum, gestational diabetes method of control unspecified ([facility]) , Elevated glucose tolerance testApply 1 Pad topically Daily Use four times daily to check FSBS. 150 each 3 08/20/2025 Activeiv contrast (will be provided with radiology test) (12 sources)Start: 65-64-4842vf contrast (will be provided with radiology test) [...] 200 mg oral tablet (20 sources)beta-Adrenergic BlockerStart: 73-06-1660zwdj 1 tablet by mouth in the morninglabetalol (Normodyne) 200 MG tablet Indications: Gestational Hypertension Take 1 tablet (200 mg) bymouth in the morning and 1 tablet (200 mg) before bedtime. 60 tablet 3 09/03/2025 ActiveStart: 07-30-2025 End: 48-97-0599cope 1 tablet by mouth in the morninglabetalol (Normodyne) 100 MG tablet Indications: Hypertension, unspecified type Take 1 tablet (100 mg) by mouth in the morning and 1 tablet (100 mg) before bedtime. 60 tablet 5 07/30/2025 09/03/2025 DiscontinuedStart: 11-28-2022 End: 19-42-8679jhpmsttpw (Normodyne,Trandate) injection 20 mgStart: 11-28-2022 End: 67-46-8387agsycsiyw (Normodyne,Trandate) injection 20 mgStart: 11-28-2022 End: 20-39-1582dvzudrwrt (Normodyne,Trandate) 5 MG/ML injection - Pyxis ADS Override Pulltake 2 tablets by mouth three times dailylabetaloL (NORMODYNE) 100 mg tablet Take 2 tablets (200 mg total) by mouth 3 (three) times a day. Active magnesium oxide 400 mg oral tablet (9 sources)Start: 05-01-2025 End: 48-99-8832lrdr 1 tablet by mouth once dailymagnesium oxide (Mag-Ox) 400 MG tablet Indications: headache in first trimester ([facility])Take 1 tablet (400 mg) by mouth Daily 30 tablet 3 05/01/2025 05/31/2025 Activemeloxicam 15 mg oral tablet (15 sources)Nonsteroidal Anti-inflammatory DrugStart: 02-02-2021 End: 13-22-0458utsh 1 tablet by mouth once dailymeloxicam (Mobic) 15 MG tablet Indications: Chronic right shoulder pain , Scapular dyskinesis Take 1 tablet (15 mg) by mouth Daily 30 tablet 3 12/30/2024 05/01/2025 Fvvtglgpgvlk87 hr metoprolol succinate 25 mg extended release oral tablet (20 sources)beta-Adrenergic BlockerStart: 10-15-2024 End: 43-78-2934yraf 1 tablet by mouth once dailymetoprolol succinate XL (Toprol- XL) 25 MG 24 hr tablet Indications: Hypertension, unspecified type Take 1 tablet by mouth daily 90 tablet 1 12/30/2024 ActiveStart: 87-01-9097ytvs 1 tablet by mouth once dailymetoprolol succinate XL (Toprol-XL) 25 MG 24 hr tablet Indications: Hypertension, unspecified type (CMS/HCC) Take 1 tablet by mouth daily 90 tablet 1 04/23/2024 ActiveStart: 42-06-2980mgsf 1 tablet by mouth once dailymetoprolol succinate XL (Toprol-XL) 25 MG 24 hr tablet Indications: Hypertension, unspecified type (CMS/HCC) Take 1 tablet by mouth daily 90 tablet 1 10/23/2023 ActiveStart: 02-27-2023 End: 17-04-4611xvrghqlghq succinate ER (TOPROL XL) 25 mg 24 hr tabletnaproxen 500 mg delayed release oral tablet (20 sources)Nonsteroidal Anti-inflammatory DrugStart: 63-47-2615rjfg 1 tablet by mouth twice dailynaproxen 500 mg oral enteric coated tablet 500 mg = 1 tab(s), Oral, BID, # 28 tab(s), Refills(s) 0 Start Date: 11/07/21 Status: Ordered Quantity: 28.0 Unit: tab(s) Repeat number: 1Start: 03-04-2021 End: 43-83-5078kybp 1 tablet by mouth twice dailynaproxen 500 mg Tab 500 mg = 1 tab(s), Oral, BID, Take one tab by mouth two times a day, # 14 tab(s), Refills(s) 0, [facility] 157, cm, 03/04/21 7:22:00 EDT, Height/Length Dosing,52, kg, 03/04/21 7:22:00 EDT, Weight Dosing Start Date: 03/04/21 Status: Ordered Quantity: 14.0 Unit:tab(s) Repeat number: 1Start: 11-02-2018 End: 46-42-6717oipm 1 tablet by mouth twice daily as [...] (5 sources)Dihydropyridine Calcium Channel BlockerStart: 11-28-2022 End: 38-88-2749MSPTvrgymt XL (Procardia XL) 30 MG 24 hr tablet Take 1 tablet (30 mg) by mouth daily. Do not crush,chew, or split. Do not start before December 02, 2022. 90 tablet 0 12/02/2022 12/02/2023 Activenorethindrone acetate 5 mg oral tablet (20 sources)Start: 05-17-2023 End: 79-75-4856nrak 2 tablets by mouth once dailynorethindrone (AYGESTIN) 5 mg tablet Take 2 tablets by mouth once daily. 60 tablet 5 01/03/2024 07/01/2024 ActiveStart: 04-11-2023 End: 61-29-9298ebys 1 tablet by mouth once dailynorethindrone (AYGESTIN) 5 mg tablet Take 1 tablet by mouth once daily. 30 tablet 11 04/11/2023 ActiveStart: 81-33-4795trix 1 tablet by mouth once dailyNorethindrone Acetate [...] mg/ml rectal foam (2 sources)Start: 07-14-2022 End: 90-62-7596aujw 15 g rectal route twice dailyProctoFoam 1% Foam apply, Rectal, BID for 7 day(s), 15 gm, Refill(s) 0 Start Date: 07/14/22 Stop Date: 07/21/22 Status: OrderedPrenatal Multivitamins with Vitamin B Complex, Vitamin C, Minerals and L-Methylfolate oral capsule (9 sources)Start: 37-32-9031Ednetgcb Multivitamins with Vitamin B Complex, Vitamin C, Minerals and L-Methylfolate oral capsule 1 cap(s), Oral, Daily, 30 cap(s), Refill(s) 0 Start Date: 07/14/22 Status: Ordered Quantity: 30.0 Unit: cap(s) Repeat number: 1Start: 76-92-6645Mdiyqtun Multivitamins with Vitamin B Complex, Vitamin C, Minerals and L-Methylfolate oral capsule 1 cap(s), Oral, Daily, 30 cap(s), Refill(s) 0 Start Date: 07/14/22 Status: OrderedPrenatal Vit-Fe Fumarate-FA ( Vitamin) 27-0.8 MG tablet (3 sources) Vit-Fe Fumarate-FA ( Vitamin) 27-0.8 MG tablet Take by mouth. 0 ActivePrenatal Vit-Fe Fumarate-FA ( Vitamins) 28-0.8 MG tablet (20 sources)Start: 05-01-2025 End: 70-56-4260dwll 1 tablet by mouth once dailyPrenatal Vit-Fe Fumarate-FA ( Vitamins) 28-0.8 MG tablet Indications: , unspecified gestational age ([facility]) , Encounter for supervision of normal first in first trimester([facility]) Take 1 tablet by mouth Daily 30 tablet 11 05/01/2025 05/01/2026 ActiveStart: 05-01-2025 End: 54-56-2124wrst 1 tablet by mouth once dailyPrenatal Vit-Fe Fumarate-FA ( Vitamins) 28-0.8 MG tablet Indications: , unspecified gestational age , Encounter for supervision of normal first in first trimester Take 1 tablet by mouth Daily 30 tablet 11 05/01/2025 05/01/2026 Active SUMAtriptan 100 mg oral tablet (10 sources)Serotonin-1b and Serotonin-1d Receptor AgonistStart: 06-43-2542yizk 1 mg by mouth onceImitrex 100 mg Tab mg tab(s), Oral, Once, Refills(s) 0 Start Date: 02/02/21 Status: Ordered Repeat number: 1Surgical Lubricant Jelly gel (12 sources)Start: 30-62-7045Seqrijbq Lubricant Jelly gel For MRI Female Pelvis, MRI department to provide. Administer intra-vaginal Surgilube immediately prior the MRI procedure (total amount to patient toleranace). 1 g 0 05/17/2023 Active Comment on above:For MRI Female Pelvis, MRI department to provide. Administer intra-vaginal Surgilube immediately prior the MRI procedure (total amount to patient toleranace).tiZANidine 4 mg oral tablet (3 sources)Central alpha-2 Adrenergic AgonistStart: 08-74-6405wfpj 1 mg by mouth every eight hourstiZANidine 4 mg Tab mg tab(s), Oral, q8hr, Refills(s) 0 Start Date: 02/02/21 Status: OrderedtraMADol hydrochloride 50 mg oral tablet (10 sources)Opioid AgonistStart: 46-75-2374tgrt 1 tablet by mouth every four hours as needed for paintraMADol (ULTRAM) 50 mg tablet Indications: Pelvic pain in female Take 1 tablet by mouth every 4 hours as needed for pain. 20 tablet 0 08/30/2023 ActiveStart: 97-30-5381kiwf 1 tablet by mouth every six hourstraMADol HCl - 50 MG Oral Tablet TAKE 1 TABLET Every 6 hours Quantity: 20 Refills: 0 Ordered: 18-Aug-2020 Charlene Rodriguez DO Start : 18-Aug-2020 ActiveStart: 03-12-2019 End: 49-79-5143oclq 1 tablet by mouth every four hours as needed for pain Tramadol 50 mg tablet Discontinued 50 MG PO Q4H as needed for pain 30 5 March 12, 2019 12:00am August 04, 2019 8:19amComment on above:Take 1 tablet by mouth every 4 hours as needed for pain.Vitamin D2 2000 intl units oral capsule (9 sources)Start: 01-77-6409eiiq 1 capsule by mouth once dailyVitamin D2 2000 intl units oral capsule Oral, Daily, Refills(s) 0 Start Date: 02/02/21 Status: Ordered Repeat number: 1Start: 85-58-9789Uitgmnd D2 2000 intl units oral capsule Oral, Daily, Refills(s) 0 Start Date: 02/02/21 Status: Ordered Completed/Discontinued Medications MedicationDrug Class(es)DatesSig (Normalized)Sig (Original)acetaminophen 325 mg oral tablet (4 sources)Start: 11-30-2022 End: 68-22-9647jmjs 1 tablet by mouth every six hours as needed for lmgj997 mg, Oral, Every 6 hours PRN, mild pain (1-3), Starting on Constance 11/30/22 at 0422 Give in addition to any other pain medication ordered at same time for any pain indication. Maximumdose of acetaminophen is 4000 mg from all sources in 24 hours. Alternate ibuprofen and acetaminophen every 3 hours.Start: 11-28-2022 End: 69-32-1297oyprwyasgzahr (Tylenol) tablet 1,000 mgacetaminophen 300 mg / codeine phosphate 30 mg oral tablet (4 sources)Opioid AgonistStart: 01-19-2025 End: 39-30-2774ljmn 1 tablet by mouth every six hours for painacetaminophen- codeine (Tylenol w/ Codeine #3) 300-30 MG tablet Indications: Pain in female genitalia on intercourse , Endometriosis Take 1 tablet by mouth every 6 (six) hours if needed for severe pain for up to 5 days 20 tablet 01/19/2025 01/24/2025 ExpiredStart: 07-22-2024 End: 95-92-3077posz 1 tablet by mouth every six hours for painacetaminophen- codeine (Tylenol w/ Codeine #3) 300-30 MG tablet Indications: Dysmenorrhea, unspecified Take 1 tablet by mouth every 6 (six) hours if needed for severe pain for up to 5 days 20 tablet 07/22/2024 07/27/2024 Activeascorbic acid 500 mg oral tablet (5 sources)Vitamin CStart: 10-25-2018 End: 95-85-3981vrsj 2 tablets by mouth in the morningASCORBIC ACID WITH ISAURO HIPS 500 MG tablet Take 2 tablets (1,000 mg total) by mouth in the morning.0 10/25/2018 09/04/2025 Discontinued ()aspirin 325 mg / butalbital 50 mg / caffeine 40 mg oral capsule (11 sources)Platelet Aggregation Inhibitor, Barbiturate, Nonsteroidal Anti- inflammatory Drug, Central Nervous System Stimulant, Methylxanthine End: 46-08-0156iamw 1 capsule by mouth every four hours as needed wsythcrwij-pztmewh-tcywbxqr (Fiorinal) 50-325-40 MG capsule Take 1 capsule [...] spray (2 sources)Standardized Chemical AllergenStart: 11-30-2022 End: 19-60-3912Oymwrvd, As needed, pain, , Starting on Constance 11/30/22 at 0608, Apply to perineal area. Patient is capable and may self administer at bedside.betamethasone 3 mg/ml / betamethasone acetate 3 mg/ml injectable suspension (2 sources)CorticosteroidStart: 11-28-2022 End: 01-54-0392mickumwhghlnd acetate-betamethasone sodium phosphate (Celestone) injection 12 mgcalcium chloride 0.0014 meq/ml / potassium chloride 0.004 meq/ml / sodium chloride 0.103 meq/ml / sodium lactate 0.028 meq/ml injectable solution (2 sources)Start: 11-28-2022 End: 33-82-0548zxto 125 mL intravenously every axte864 mL/hr, IntraVENous, Continuous, Starting on Sun11/28/22 at 0100, Pre-Deliverycetirizine hydrochloride 10 mg oral tablet (17 sources)Histamine-1 Receptor AntagonistStart: 06-09-2025 End: 93-61-1232wkhj 1 tablet by mouth once dailycetirizine (ZyrTEC ALLERGY) 10 MG tablet Indications: Allergy, sequela Take 1 tablet (10 mg) by mouth Daily 30 tablet 11 06/09/2025 07/15/2025 DiscontinuedchlordiazePOXIDE hydrochloride 5 mg / clidinium bromide 2.5 mg oral capsule (1 source)Anticholinergic, BenzodiazepineStart: 60-99-3265hlxo 1 capsule by mouth every eight hourschlordiazePOXIDE-Clidinium 5-2.5 MG 1 capsule before meals Orally Three times a day for 30 day(s) May, Not-Taking chlorhexidine gluconate 20 mg/ml medicated pad (2 sources)Start: 11-28-2022 End: 73-79-6302zqziz 1 dose topically every six hoursTopical, Every 6 hours, First dose on Sun11/28/22 at 0100, Pre-Delivery Apply to the affected area.&a mp;nbsp; Clean entire abdomen.cholecalciferol 0.125 mg oral capsule (5 sources)Vitamin DStart: 10-25-2018 End: 10-55-6100ouqb 1 capsule by mouth in the morningcholecalciferol, vitamin D3, (VITAMIN D3) 5,000 units capsule Take 1 capsule (5,000 Units total) bymouth in the morning. 0 10/25/2018 09/04/2025 Discontinued ()desogestrel 0.15 mg / ethinyl estradiol 0.03 mg oral tablet (11 sources)Progestin, EstrogenStart: 07-22-2024 End: 33-84-0609inzyltnmyoh-ethinyl estradiol (Apri) 0.15-30 MG-MCG tablet Indications: Dysmenorrhea, unspecified Take 1 tablet by mouth Daily 21 tablet 12 10/20/2024 01/19/2025 Discontinued (Other)diphenhydrAMINE (BENADryl) injection 25 mg (2 sources)Start: 11-30-2022 End: 21-27-3497sgoi 25 mg intravenously every six hours as neededdiphenhydrAMINE (BENADryl) injection 25 mgNorethindrone-E.Estradiol-Iron (1 source)EstrogenStart: 10-17-2017 End: 05-49-6542uilu 1 tablet by mouth once dailyNorethindrone-E.Estradiol-Iron (Lo Loestrin Fe) 1 mg-10 mcg (24)/10 mcg (2) tablet Discontinued 1 TAB PO Daily October 17, 2017 1:00am March 12, 2019 6:15amEthinyl Estradiol / Norethindrone (7 sources)EstrogenStart: 12-01-2018 End: 27-92-3660wdwq 0.05 ug by mouth once in the eveningnorethindrone ac-eth estradiol (MICROGESTIN 1/20) 1-20 mg-mcg per tablet Take 1 tablet by mouth in t he evening. 0 12/01/2018 09/04/2025 Discontinued ()Start: 12-01-2018 take 0.05 ug by mouth once in the eveningnorethindrone ac-eth estradiol (MICROGESTIN 1/20) 1-20 mg-mcg per tablet Take 1 tablet by mouth in the evening. 0 12/01/2018 ActiveStart: 47-55-7829wxar 1 tablet by mouth once dailyDasetta oral tablet 1 tab(s), Oral, Daily, Refill(s) 0, control/menstrual regulation Start Date: 11/23/16 Status: Orderedfamotidine 20 mg oral tablet (2 sources)Histamine-2 Receptor AntagonistStart: 11-30-2022 End: 46-35-4902ugjc 20 mg by mouth twice daily as needed for gastroesophageal reflux xodpsie32 mg, Oral, 2 times daily PRN, heartburn, Starting on Constance 11/30/22 at 0608, Renal dose per pharmacy for peptic ulcer prophylaxis.ferrous sulfate 325 mg oral tablet (8 sources)Start: 11-30-2022 End: 45-31-0731tjvb 325 mg by mouth twice daily at ummynsnf185 mg, Oral, 2 times daily with meals, First dose on Constance 11/30/22 at 0800, Start if Hgb le ss than 10. End: 89-59-0234pwjd 1 tablet by mouth in the morningFerrous Sulfate (IRON PO) Take 1 tablet by mouth in the morning. 09/16/2025 Discontinuedtake 1 tablet by mouth in the morningFerrous Sulfate (IRON PO) Take 1 tablet by mouth in the morning. ActiveFLUoxetine 20 mg oral capsule (17 sources)Serotonin Reuptake InhibitorStart: 39-71-9603jwmt 1 capsule by mouth once dailyFLUoxetine HCl - 20 MG Oral Capsule TAKE 1 CAPSULE Daily Quantity: 30 Refills: 11 Ordered: 02-Jun-2021 Kuldip DAY Charlene Start : 02-Jun-2021 Active Start: 11-02-2018 End: 73-04-3087alrm 1 capsule by mouth once dailyFluoxetine (Prozac) 20 mg capsule Discontinued 20 MG PO Daily November 02, 2018 1:00am August 04, 2019 8:19amtake 1 capsule by mouth once dailyFLUoxetine (PROZAC) 10 mg capsule Take 10 mg by mouth once daily. 0 ActiveComment on above:Take 10 mg by mouth once daily.fluticasone propionate 0.05 mg/actuat metered dose nasal spray (16 sources)CorticosteroidStart: 06-22-2025 End: 06-09-1031qthd 1 spray(s) nasal route once dailyfluticasone (Flonase) 50 MCG/ACT nasal spray Indications: Sinusitis, unspecified chronicity, unspecified location Administer 1 spray into each nostril Daily Shake gently. Before first use, prime pump. After use, clean tip and replace cap. 16 g 12 06/22/2025 07/15/2025 Discontinued End: 25-20-7727hbnw 1 spray(s) nasal route in the morningfluticasone (Flonase) 50 MCG/ACT nasal spray Administer 1 spray into affected nostril(s) in the morn ing. 09/16/2025 Discontinued End: 56-25-6852jnsu 1 spray(s) nasal route in the morningfluticasone propionate (FLONASE) 50 mcg/actuation nasal spray Administer 1 spray into each nostril in the morning. 09/04/2025 Discontinued ()lanolin 1000 mg/ml topical cream (2 sources)Start: 11-30-2022 End: 46-67-7114Mrrjowl, As needed, dry skin, nipple discomfort, Starting on Sun11/30/22 at 0608, Apply to affected area.500 ml magnesium sulfate 40 mg/ml injection (4 sources)Start: 11-28-2022 End: 15-77-2279iqoilwncx sulfate 20 GM/500ML infusionStart: 11-28-2022 End: 39-12-3495onietwshq sulfate 20 GM/500ML infusion - Pyxis ADS Override Pull metoclopramide 10 mg oral tablet (2 sources)Dopamine-2 Receptor AntagonistStart: 80-69-0210qere 1 tablet by mouth every eight hoursReglan 10 MG 1 tablet before meals Orally tid for 30 day(s) March, Not-TakingmiSOPROStol 0.2 mg oral tablet (2 sources)Prostaglandin E1 AnalogStart: 11-30-2022 End: 98-61-8524yuXPIHHSprg (Cytotec) tablet 1,000 mcgStart: 11-30-2022 End: 88-87-5448mvFZDTKYges (Cytotec) tablet 1,000 mcgmiSOPROStol (Cytotec) split tablet 25 mcg (2 sources)Start: 11-28-2022 End: 97-30-2404hwqv 1 tablet vaginal route every four hoursmiSOPROStol (Cytotec) split tablet 25 mcg1 ml morphine sulfate 4 mg/ml injection (4 sources)Opioid AgonistStart: 11-28-2022 End: 84-88-1327uevoznsf sulfate (PF) injection 4 mgnitrofurantoin, macrocrystals 25 mg / nitrofurantoin, monohydrate 75 mg oral capsule (6 sources)Nitrofuran AntibacterialStart: 66-73-3272Kdomyrjhpvmmyh Monohyd Macro 100 MG Oral Capsule TAKE 1 CAPSULE Other Please take one capsule aftersexual intercourse to prevent UTI Quantity: 30 Refills: 11 Ordered: 01-Apr-2021 Teri Chau MD Start : 01-Apr-2021 Active2 ml ondansetron 2 mg/ml injection (12 sources)Serotonin-3 Receptor AntagonistStart: 11-29-2022 End: 33-39-9978lbzi 4 mg intravenously every six hours as needed for nausea and vomitingondansetron (Zofran) injection 4 mgStart: 39-52-2652tbnj 1 tablet by mouth every six hours as needed for nauseaZofran 4 mg Tab 1 tab(s), Oral, q6hr, PRN Nausea, # 8, Refills(s) 0 Start Date: 07/14/22 Status: Ordered Quantity: 8.0 Unit: Repeat number: 1Start: 70-90-4196weqp 1 tablet by mouth three times daily Zofran 4 MG 1 tablet Orally THREE TIMES A DAY for 30 day(s) May, Not-Takingondansetron ODT (Zofran-ODT) disintegrating tablet 4 mg (2 sources)Start: 11-30-2022 End: 99-45-4864toyy 1 tablet by mouth every eight hours [...] for 1 hour. Then discontinue.Start: 11-29-2022 End: 54-56-4433lfxcfwbq (Pitocin) 30 units in 500 mL infusionStart: 11-29-2022 End: 86-05-4879fcmaxmgp (Pitocin) 30 units in 500 mL infusionphenazopyridine hydrochloride 200 mg oral tablet (10 sources)Start: 76-37-4176publ 1 tablet by mouth three times dailyPyridium 200 mg Tab 200 mg = 1 tab(s), Oral, TID, Take one tab by mouth three times a day for threedays, # 9 tab(s), Refills(s) 0, Pharmacy: [facility]58, 157, cm, 03/04/21 7:22:00 EDT, Height/Length Dosing, 52, kg, 03/04/21 7:22:00 EDT, Weight Dosing Start Date: 03/04/21 Status: Ordered Quantity: 9.0 Unit: tab(s) Repeat number: 1predniSONE 10 mg oral tablet (3 sources)Start: 09-10-2023 End: 95-11-4980vvkn 2 tablets by mouth twice daily, then [...] 09/10/2023 01/10/2024 Discontinued (Therapy completed)Start: 03-12-2019 End: 35-46-7166bpea 3 tablets by mouth once daily at mealtimePrednisone 20 mg tablet Discontinued 60 MG PO Daily 9 March 12, 2019 12:00am August 04, 2019 8:18am administer with food or milkpromethazine hydrochloride 12.5 mg oral tablet (13 sources)PhenothiazineStart: 05-25-2025 End: 22-97-4077tpip 1 tablet by mouth every six hours [...] nausea. 30 tablet 2 508/ Discontinued End: 09-36-9368kizj 12.5 mg rectal route every six hours as needed for nausea and vomitingpromethazine (PHENERGAN) 12.5 mg suppository Insert 1 suppository (12.5 mg total) into the rectum every 6 (six) hours as needed for nausea or vomiting. 09/04/2025 Discontinued ()rizatriptan 5 mg disintegrating oral tablet (5 sources)Serotonin-1b and Serotonin-1d Receptor AgonistStart: 10-24-2018 End: 28-19-7899jjwtyzswoza MUNICIPAL BOND TRADER (MAXALT-MUNICIPAL BOND TRADER) 5 mg disintegrating tablet Dissolve 1 tablet (5 mg total) on tongue asneeded. 0 10/24/2018 09/04/2025 Discontinued ()5 ml sodium chloride 9 mg/ml injection (2 sources)Start: 11-28-2022 End: mL, IntraVENous, Every 12 hours scheduled (2 times per day), First dose on Sun11/28/22 at 0900, Pre-Deliveryvitamin b12 1 mg extended release oral tablet (5 sources)Vitamin L83Oekoe: 10-25-2018 End: 76-37-7100mlii 1 tablet by mouth in the morningcyanocobalamin, vitamin B- 12, (VITAMIN B-12) 1,000 mcg tablet extended release Take 1 tablet (1 mg total) by mouth in the morning. 0 10/25/2018 09/04/2025 Discontinued ()witch yesi 500 mg/ml medicated pad (2 sources)Start: 11-30-2022 End: 64-59-3332Rvmxqaw, As needed, hemorrhoids, For perineal pain or discomfort, Starting on Sun11/30/22 at 0608, Apply to perineal area. Patient is capable and may self administer at bedside. Problems Active Problems Problem ClassificationProblemDateDocumented DateEpisodic/ChronicAllergic reactions (1 source)Allergic reaction; Translations: [Allergy, unspecified, initial encounter]80-71-9346UhjoceabCxhnyol on above:Problem List clean-up per request of Phys. EHR CmteAnxiety disorders (20 sources)Anxiety; Translations: [Anxiety state, unspecified]Onset: 10-08-2020 92-85-1314WdccvhuQiipero on above:Problem List clean-up per request of Phys. EHR CmteCardiac dysrhythmias (20 sources)Paroxysmal tachycardia; Translations: [Paroxysmal tachycardia, unspecified]Onset: 007972-11-1177EsszadvEushsyimwkxtw of surgical procedures or medical care (1 source)Postoperative retention of urine; Translations: [Other postprocedural complications and disorders of genitourinary system]06-31-6139SvrztdteBwaooca on above:Problem List clean-up per request of Phys. EHR CmteDiabetes mellitus without complication (2 sources)Abnormal glucose tolerance test; Translations: [Other abnormal glucose]87-28-7558MryqnifwWsvdhbsa or abnormal glucose tolerance complicating ; childbirth; or the puerperium (20 sources)Gestational diabetes mellitus; Translations: [Gestational diabetes mellitus in , diet controlled]Onset: 191056-91-3696Nzlmgyej Endometriosis (20 sources)Endometriosis (clinical); Translations: [Endometriosis, site unspecified]Onset: 10-76-1075EgmjlcyOfrmelrhl hypertension (20 sources)Hypertensive disorder; Translations: [Essential (primary) hypertension]Onset: 476889-29-6626WjokbdaQjijiurpdayvs symptoms and ill- defined conditions (20 sources)Microscopic hematuria; Translations: [Nocturia]62-63-6466Zrincgnr Comment on above:Problem List clean-up per request of Phys. EHR CmteHeadache; including migraine (20 sources)Migraine; Translations: [Migraine, unspecified, not intractable, without status migrainosus]Onset: 248035-73-0985NmoejcgMppdbdb on above: Problem List clean-up per request of Phys. EHR CmteHeadache; including migraine (14 sources)Headache; Translations: [Headache, unspecified]Onset: 01-31-2023 19-31-4602NcedtekaGvhyglmciyt (1 source)Hemorrhoids; Translations: [Unspecified hemorrhoids]Onset: 07-14-2022 EpisodicHypertension complicating ; childbirth and the puerperium (20 sources)Hypertension complicating ; Translations: [Unspecified maternal hypertension, unspecified trimester]Onset: hronic Hypertension complicating ; childbirth and the puerperium (16 sources)Severe pre-eclampsia complicating childbirth; Translations: [Severe pre-eclampsia, third trimester]Onset: 87-97-5296KplsxpckDjiyj disorders and dislocations; trauma-related (20 sources)Disorder of left patellofemoral joint; Translations: [Patellofemoral disorders, left knee]Onset: 067494-84-1228XoqccfnKlwzt disorders and dislocations; trauma-related (20 sources)Disorder of right patellofemoral joint; Translations: [Patellofemoral disorders, right knee]Onset: hronic Menstrual disorders (20 sources)Dysmenorrhea; Translations: [Dysmenorrhea, unspecified]Onset: 832847-37-1589OycrusnYnkdpi and vomiting (1 source)Nausea and vomiting; Translations: [Nausea with vomiting, unspecified] EpisodicNonspecific chest pain (2 sources)Chest pain; Translations: [Chest pain, unspecified]76-26-0905Iljjynmd Comment on above:Problem List clean-up per request of Phys. MIKAYLA CmteNutritional deficiencies (20 sources)Vitamin D deficiency; Translations: [Vitamin D deficiency, unspecified]Onset: 258461-24-8183YfghljlJbjdg acquired deformities (20 sources)Scoliosis deformity of spine; Translations: [Scoliosis, unspecified] Onset: 077688-50-0277GdfiwbqXayrh bone disease and musculoskeletal deformities (10 sources)Disorder of fgjc84-14-2078GemhknycImtpdfy on above:right shoulder right shoulderOther circulatory disease (1 source)Elevated blood-pressure reading without diagnosis of hypertension; Translations: [Elevated blood-pressure reading, without diagnosis of hypertension]Onset: 78-93-7149LyimixnkBlron complications of ; puerperium affecting management of mother (1 source)Delayed AND/OR secondary hemorrhage; Translations: [Delayed and secondary hemorrhage]Onset: 17-21-1484BeiouiggMumrl complications of (1 source)Finding related to ; Translations: [Other specified related conditions, unspecified trimester]Onset: 43-54-9510YrzvoovdWzdrs complications of (1 source)Supervision of with other poor reproductive or obstetric history, unspecified trimester; Translations: [Supervision of with other poor reproductive or obstetric history, unspecified trimester]Onset: 94-63-5713VexeeprpEudhm connective tissue disease (1 source)Diastasis recti; Translations: [Separation of muscle (nontraumatic), other site]EpisodicOther female genital disorders (10 sources)Abnormal uterine ggguofvz03-65-1980MaekrdnCexej female genital disorders (1 source)Dyspareunia; Translations: [Other specified dyspareunia]ChronicOther female genital disorders (20 sources)Pain in female genitalia on intercourse; Translations: [Unspecified dyspareunia]Onset: 671116-50-6348YgjrgolCbsen female genital disorders (1 source)Unspecified dyspareunia; Translations: [Unspecified dyspareunia]Onset: 14-87-8893NlmguggXcjhh female genital disorders (2 sources)Pelvic floor dysfunction; Translations: [Other specified conditions associated with female genital organs and menstrual cycle]EpisodicOther gastrointestinal disorders (18 sources)Constipation; Translations: [Constipation, unspecified]Onset: 065573-29-5034VmfwaygnVnlcyrp on above:Problem List clean-up per request of Phys. EHR CmteOther gastrointestinal disorders (1 source)Constipation, unspecified; Translations: [Constipation, unspecified] Onset: 91-68-4247QzfpqdzhRinnc hereditary and degenerative nervous system conditions (20 sources)Finding of scapular structure; Translations: [Other specified extrapyramidal and movement disorders]Onset: 175162-98-4031PcaoqokTwlyn nervous system disorders (9 sources)Chronic pain; Translations: [Other chronic pain]Onset: 03-29-2023 31-37-0186FsubimpTtpfw nervous system disorders (1 source)Other chronic pain; Translations: [Chronic pelvic pain in female] Onset: 87-32-6107FfhcptpYlfkh nervous system disorders (1 source)Paresthesia of left upper limb; Translations: [Paresthesia of skin] 80-66-7723TynyfyyjEfknfjp on above:Problem List clean-up per request of Phys. EHR CmteOther nervous system disorders (1 source)Tremor; Translations: [Tremor, unspecified]37-03-9047UhzplniiLzmpttc on above:Problem List clean-up per request of Phys. EHR CmteOther nutritional; endocrine; and metabolic disorders (20 sources)Body mass index 30+ - obesity; Translations: [Obesity, unspecified] Onset: 479971-81-5504XrmnygjBvzik and delivery including normal (18 sources); Translations: [Encounter for supervision of normal , unspecified, unspecified trimester]02-59-2312UiwbsxcwLciob screening for suspected conditions (not mental disorders or infectious disease) (8 sources)Elevated liver enzymes level; Translations: [Other specified abnormal findings of blood chemistry]Onset: 04-18-2022 Resolved: 29-11-2942OjupajqdXbcsg upper respiratory disease (20 sources)Allergic rhinitis due to pollen; Translations: [Allergic rhinitis due to pollen]Onset: 757715-02-7464OfkuoohQvnla upper respiratory infections (2 sources)Sinusitis; Translations: [Chronic sinusitis, unspecified]06-22-2025 ChronicResidual codes; unclassified (2 sources)Contraception ; Translations: [Other specified health status] 95-79-7718SzonbbunBimcpvas codes; unclassified (2 sources)Gestation period, 13 weeks; Translations: [13 weeks gestation of ]08-83-0383PyjvhsezFavsaipu codes; unclassified (2 sources)Gestation period, 17 weeks; Translations: [17 weeks gestation of ]14-34-2870CtqnhaucHregizza codes; unclassified (2 sources)Gestation period, 20 weeks; Translations: [20 weeks gestation of ]81-86-1207DlvappujCirotsta codes; unclassified (2 sources)Gestation period, 24 weeks; Translations: [24 weeks gestation of ]66-87-6389AfgljmqjJvbdeuhl codes; unclassified (2 sources)Gestation period, 26 weeks; Translations: [26 weeks gestation of ]48-03-8327UgizxlgnDaxotuds codes; unclassified (2 sources)Gestation period, 27 weeks; Translations: [27 weeks gestation of ]70-53-5751FusyrhqwTolzjkbd codes; unclassified (1 source)Gestation period, 28 weeks; Translations: [28 weeks gestation of ]77-81-5650YycuzabuKkcdwxjx codes; unclassified (1 source)28 weeks gestation of ; Translations: [28 weeks gestation of ]Onset: 63-63-5544EyoikhusAjqfuiba codes; unclassified (2 sources)Gestation period, 29 weeks; Translations: [29 weeks gestation of ]93-48-0137GipuqskxFowjvpgh codes; unclassified (2 sources)Gestation period, 31 weeks; Translations: [31 weeks gestation of ]73-74-4669HbrbwthuMpncbmgdiej; intervertebral disc disorders; other back problems (20 sources)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; Translations: [Other cervical disc displacement, unspecified cervical region] Onset: 644293-43-3174TkuytorJwxsbuvixmcu (1 source)MFM consultOnset: 18-04-6939Nbweojjefsxa (1 source)Gestational DiabetesOnset: 44-77-8563Dulncgg tract infections (20 sources)Recurrent urinary tract infection; Translations: [Urinary tract infection, site not specified]Onset: 647558-70-5508Rbikvfzd Past or Other Problems Problem ClassificationProblemDateDocumented DateEpisodic/ChronicAbdominal pain (20 sources)Epigastric pain; Translations: [Epigastric pain]Onset: 07-14-2022 EpisodicAcquired foot deformities (20 sources)Acquired equinus deformity of foot; Translations: [Other acquired deformities of unspecified foot]Onset: 377333-03-2019IvaerichQsrkbsf dysrhythmias (20 sources)Tachycardia; Translations: [Tachycardia, unspecified]Onset: 991909-41-5847YzpzrwhcGkgbrwmbnxc deficiencies (20 sources)Cobalamin deficiency; Translations: [Deficiency of other specified B group vitamins]Onset: 999624-65-5245TikgxtvcUhist connective tissue disease (20 sources)Posterior calcaneal exostosis; Translations: [Calcaneal spur, unspecified foot]Onset: 470673-73-8132ZfkhtldzBfteh disorders of stomach and duodenum (20 sources)Gastroparesis syndrome; Translations: [Gastroparesis]Onset: 170433-94-9351BgoocqvnIhjwe female genital disorders (1 source)Other specified conditions associated with female genital organs and menstrual cycle; Translations:[High-tone pelvic floor dysfunction]Onset: 09-28-8727CshzuhueYfksf female genital disorders (20 sources)Chronic pelvic pain of female; Translations: [Chronic pelvic pain in female]Onset: 017627-64-3761HghzfanyAzdqk gastrointestinal disorders (20 sources)Swallowing painful; Translations: [Dysphagia, unspecified]Onset: 009622-62-3833UdnljwydAhlod gastrointestinal disorders (20 sources)Diarrhea; Translations: [Diarrhea, unspecified]Onset: 03-24-2025 44-09-3449ZaqolrzeRqqsz non-traumatic joint disorders (20 sources)Chronic pain of right upper limb; Translations: [Pain in right shoulder]Onset: 768237-51-2473YozsaytfDiesa nutritional; endocrine; and metabolic disorders (16 sources)Loss of appetite; Translations: [Anorexia]Onset: 05-27-2020 86-18-3424CpxaeqpdVelgqdz (15 sources)Vasovagal syncope; Translations: [Syncope and collapse]Onset: 185278-65-9719QvxfmiayGxkhhwrerugg (9 sources)PregnancyOnset: 07-14-2022 Resolved: 655029-35-3880FPNXHVA: Highlighted row has been ruled out! Unclassified (1 source)No known active sgbhssuz39-22-4209 Results Test NameValueInterpretationReference RangeFacilityUS OB BPP W NON-STRESS on 14-05-0524[place]vm[place] [address] Ultrasound Report Signed Patient: JUHI GAMA MR#: [id number] : 1995 Acct:[id number] Age/Sex: 30 / F ADM Date: 10/03/25 Loc: US Attending Dr: Steph Keane Ordering Physician: Steph Keane Date of Service: 10/03/25 Procedure(s): US OB BPP w non-stress Accession Number(s): [id number] cc: Steph Keane; KAFTAN,G KENNETH The [address] [address] Patient Name: JUHI GAMA MRN: [facility]:[id number] date: 1995 Sex: F Assigned Patient Location: US Current Patient Location: Accession/Order Number: [id number] Exam Date: 10/03/2025 10:53 Report Date: 10/03/2025 [...] Faria M.D. 10/03/2025 11:36 AM Dictation Location: [place] [address] Electronically authenticated by: [id number] Y Date: 10/03/2025 11:36 Dictated By: Will Faria M.D. Signed By: 10/03/25 1138 DD/ 1136 TD/TT: [employer] Supervisor:TBHRadiology, Radiologist, MD - 10/03/2025 [place] [address] Ultrasound Report Signed Patient: JUHI GAMA MR#: [id number] : 1995 Acct:[id number] Age/Sex: 30 / F ADM Date: 10/03/25 Loc: US Attending Dr: Steph Keane Ordering Physician: Steph Keane Date of Service: 10/03/25 Procedure(s): US OB BPP w non-stress Accession Number(s): [id number] cc: Steph Keane; Yomaira BELTRAN [place] [id number] Patient Name: JUHI GAMA MRN: [id number] date: 1995 Sex: F Assigned Patient Location: US Current Patient Location: Accession/Order Number: [id number] Exam Date: 10/03/2025 10:53 Report Date: 10/03/2025 [...] Faria M.D. 10/03/2025 11:36 AM Dictation Location: [place] [address] Electronically authenticated by: [id number] Y Date: 10/03/2025 11:36 Dictated By: Will Faria M.D. Signed By: 10/03/25 1138 DD/ 1136 TD/TT: [employer] Supervisor: [facility] HealthcareRadiology Study observation (narrative)NOMS HealthcareUS OB BPP W NON-STRESSOrdered By: Radiologist Radiology on 97-60-5925[facility] Work Phone: Urinalysis macro (dipstick) panel (U)on 09-30-2025 Bilirubin, UANegativeNegative - 4(70) +++ mg/dLNOMS HealthcareBlood, UANegative Negative - 50 Teodoro/mcLNOMS HealthcareClarity, UAClearNOMS HealthcareColor, UA YellowNOMI HealthcareGlucose, UANegativeNegative - 2000(110) ++++ mg/dLNOMI HealthcareInterpretation and review of laboratory resultsNormalNOCarondelet Health Ketones, UANegativeNegative - 160(16) ++++ mg/dLNOMI HealthcareLeukocytes, UA NegativeNegative - 500+++ Robinson/mcLNOMI HealthcareNitrite, UANegativeNegative - PositiveNOMI HealthcarepH, UA6.05 - 9NOMI HealthcareProtein, UANegativeNegative - 2000(20) ++++ mg/dLNOMI HealthcareSpec Grav, UA1.0101 - 1.03N[facility] Healthcare Urobilinogen, UA1.00.2 - 12 mg/dLNOMadison Medical Center HealthcareUS OB BPP W NON-STRESSon 86-71-5563[place]yz[place] [address] Ultrasound Report Signed Patient: JUHI GAMA MR#: [id number] : 1995 Acct:[id number] Age/Sex: 30 / F ADM Date: 09/26/25 Loc: US Attending Dr: Steph Keane Ordering Physician: Steph Keane Date of Service: 09/26/25 Procedure(s): US OB BPP w non-stress Accession Number(s): [id number] cc: Steph Keane; Yomaira BELTRAN [place] [id number] Patient Name: JUHI GAMA MRN: [facility]:[id number] date: 1995 Sex: F Assigned Patient Location: Current Patient Location: Accession/Order Number: [id number] Exam Date: 09/26/2025 11:50 Report Date: 09/26/2025 14:50 At the request of: STEPH KEANE Procedure: US OB BPP w non-stress Ultrasound biophysical profile INDICATION: -induced hypertension COMPARISON: 09/19/2025 FINDINGS IMPRESSION: Cephalic position. 8 out of 8 score biophysical profile. LEONEL 11.6 cm. heart 129 bpm Impression dictated by: Chu Amaya M.D. 09/26/2025 2:50 PM Dictation Location: [facility]29 Electronically authenticated by: [id number] Y Date: 09/26/2025 14:50 Dictated By: Chu Amaya M.D. Signed By: 09/26/25 1452 DD/ 49 TD/TT: [employer] Supervisor:TBHRadiology, Radiologist, - 09/26/2025 [place] [address] Ultrasound Report Signed Patient: JUHI GAMA MR#: [id number] : 1995 Acct:[id number] Age/Sex: 30 / F ADM Date: 09/26/25 Loc: US Attending Dr: Steph Keane Ordering Physician: Steph Keane Date of Service: 09/26/25 Procedure(s): US OB BPP w non-stress Accession Number(s): [id number] cc: Le Keane G ROBERT [place] [address] Patient Name: JUHI GAMA MRN: [facility]:[id number] date: 1995 Sex: F Assigned Patient Location: Current Patient Location: Accession/Order Number: [id number] Exam Date: 09/26/2025 11:50 Report Date: 09/26/2025 14:50 At the request of: STEPH KEANE Procedure: US OB BPP w non-stress Ultrasound biophysical profile INDICATION: -induced hypertension COMPARISON: 09/19/2025 FINDINGS IMPRESSION: Cephalic position. 8 out of 8 score biophysical profile. LEONEL 11.6 cm. heart 129 bpm Impression dictated by: Chu Amaya M.D. 09/26/2025 2:50 PM Dictation Location: RADIO-PC-29 Electronically authenticated by: [id number] Y Date: 09/26/2025 14:50 Dictated By: Chu Aamya M.D. Signed By: 09/26/25 145 DD/ 145 TD/TT: [employer] Supervisor: LANETTE HealthcareRadiology Study observation (narrative)NOMS HealthcareUS OB BPP W NON-STRESSOrdered By: Radiologist Radiology on 77-79-7470[facility] Work Phone: US OB BPP W NON-STRESSon [phone] [address] Ultrasound Report Signed Patient: JUHI GAMA MR#: [id number] : 1995 Acct:[id number] Age/Sex: 30 / F ADM Date: 09/19/25 Loc: US Attending Dr: Steph Keane Ordering Physician: Steph Keane Date of Service: 09/19/25 Procedure(s): US OB BPP w non-stress Accession Number(s): [id number] cc: Steph Keane; Yomaira BELTRAN [place] [id number] Patient Name: JUHI GAMA MRN: [facility]:[id number] date: 1995 Sex: F Assigned Patient Location: [facility] Current Patient Location: Accession/Order Number: [id number] Exam Date: 09/19/2025 10:06 Report Date: 09/19/2025 [...] Morillo M.D. 09/19/2025 12:17 PM Dictation Location: [employer] Electronically authenticated by: [id number] Y Date: 09/19/2025 12:17 Dictated By: Jp Morillo D.O. Signed By: 09/19/25 1219 DD/ 16 TD/TT: [employer] Supervisor:SATNAMadiolRandell malagon, - 09/19/2025 [place] [id number] Ultrasound Report Signed Patient: JUHI GAMA MR#: [id number] : 1995 Acct:[id number] Age/Sex: 30 / F ADM Date: 09/19/25 Loc: US Attending Dr: Steph Keane Ordering Physician: Steph Keane Date of Service: 09/19/25 Procedure(s): US OB BPP w non-stress Accession Number(s): [id number] cc: Steph Keane; Yomaira BELTRAN [place] [id number] Patient Name: JUHI GAMA MRN: [facility]:[id number] date: 1995 Sex: F Assigned Patient Location: [facility] Current Patient Location: Accession/Order Number: [id number] Exam Date: 09/19/2025 10:06 Report Date: 09/19/2025 [...] Morillo M.D. 09/19/2025 12:17 PM Dictation Location: [email or web address] Electronically authenticated by: [id number] Y Date: 09/19/2025 12:17 Dictated By: Jp Morillo D.O. Signed By: 09/19/25 1219 DD/ 16 TD/TT: [employer] Supervisor: LANETTE HealthcareRadiology Study observation (narrative)NOMS HealthcareUS OB BPP W NON-STRESSOrdered By: Radiologist Radiology on 86-00-1925VAXMPerry County Memorial Hospital Work Phone: Urinalysis macro (dipstick) panel (U)on 09-16-2025 Bilirubin, UANegativeNegative - 4(70) +++ mg/dLPerry County Memorial HospitalBlood, UANegative Negative - 50 Teodoro/mcLPerry County Memorial HospitalClarity, UAClearNOMI HealthcareColor, UA YellowNOCarondelet HealthGlucose, UANegativeNegative - 2000(110) ++++ mg/dLPerry County Memorial HospitalInterpretation and review of laboratory resultsNormalPerry County Memorial Hospital Ketones, UANegativeNegative - 160(16) ++++ mg/dLPerry County Memorial HospitalLeukocytes, UA NegativeNegative - 500+++ Robinson/[facility] CenterNitrite, UANegativeNegative - PositiveOREM COMMUNITY [facility]PITAL HealthcarepH, UA6.05 - 9NOMI HealthcareProtein, UANegativeNegative - 2000(20) ++++ mg/dLPerry County Memorial HospitalSpec Grav, UA1.0101 - 1.03[facility] Urobilinogen, UA1.00.2 - 12 mg/dLFreeman [facility] HealthcareALL BUNon 83-91-3532Opiy nitrogen [Mass/Vol]8 mg/dL7.0 - 18.0 mg/dLLiberty Hospital URIC ACIDon 18-22-1833Znfqs [Mass/Vol]3.5 mg/dL2.6 - 6.0 mg/dLPerry County Memorial HospitalCC ALT on 20-02-5267UBF [Catalytic activity/Vol]40 U/L14 - 59 U/[facility] CenterCCF AST on 19-70-8796WMT [Catalytic activity/Vol]24 U/L15 - 37 U/[facility] CenterNo Panel Informationon 30-35-2088Aetavfywrrzrzi and review of laboratory results AbnormalNOCarondelet HealthCLINISYNCNUniversity Health Lakewood Medical CenterTB CREATININEon 09-03-2025 Creatinine [Mass/Vol]0.42 mg/dLLow0.55 - 1.02 mg/dLPerry County Memorial HospitalGFR/1.73 sq M.predicted CKD-EPI (S/P/Bld) [Vol rate/Area]>60>=60 mL/min/1.73m 2NUniversity Health Lakewood Medical CenterTB EGFR-NON AF QATARI>60>=60 mL/min/1.73m 2NOMS HealthcareTB URINE T PROTEIN CREAT RATIOon 88-88-3901QWQEZLPTJN URINE RANDOM<13.26Yui28.00 - 300.00 mg/dLNOMI HealthcareTOTAL PROTEIN URINE RANDOM<6.0NINF - 11.9 mg/dLOREM COMMUNITY [facility]OSPITAL HealthcareUrinalysis macro (dipstick) panel (U)on 10-86-1440Ntppbvywr, UA NegativeNegative - 4(70) +++ mg/dLOREM COMMUNITY [facility]OSPITAL HealthcareBlood, UANegativeNegative - 50 Teodoro/mcLOREM COMMUNITY HOSPITAL HealthcareClarity, UAClearNOMI HealthcareColor, UAYellowNOMI HealthcareGlucose, UANegativeNegative - 2000(110) ++++ mg/dLOREM COMMUNITY [facility]OSPITAL Healthcare Interpretation and review of laboratory resultsNormalOREM COMMUNITY [facility]OSPITAL HealthcareKetones, UA NegativeNegative - 160(16) ++++ mg/dLOREM COMMUNITY [facility]OSPITAL HealthcareLeukocytes, UANegative Negative - 500+++ Robinson/[facility] CenterNitrite, UANegativeNegative - Positive NOM HealthcarepH, UA6.55 - 9NOMI HealthcareProtein, UANegativeNegative - 2000(20) ++++ mg/dLOREM COMMUNITY HOSPITAL HealthcareSpec Grav, UA1.0051 - 1.03NOM[facility] Healthcare Urobilinogen, UA2.00.2 - 12 mg/dLCaroMont Regional Medical Center - Mount HollyTB TOTAL PROTEIN 24 HOUR URINEon 89-81-2159Wxzmugxvzkurts and review of laboratory results AbnormalNOMI HealthcareProtein (U) [Mass/Vol]22.6 mg/dLHighNINF - 11.9 mg/dLPerry County Memorial HospitalTB TOTAL PROTEIN 24 HOUR RFSEI687.6NINFNOCarondelet HealthTOTAL VOLUME 24 HOUR HVABS022tS/24hrNOMI HealthcareCLINISYNCNALLIANCEHEALTH DURANT – [facility]URANT HealthcareALL CBC WITH AUTO DIFFon 93-23-4400HQEFGHEUH ABSOLUTE AUTO0.1NOMS HealthcareBasophils/100 WBC (Bld)0.5 %0.2 - 2.0 %NOMS HealthcareEosinophils/100 WBC (Bld)1.4 %0.9 - 7.0 % [facility] HealthcareErythrocyte distribution width (RBC) [Ratio]13 %11.0 - 15.0 %[facility] HealthcareHematocrit (Bld) [Volume fraction]34.4 %Low36.0 - 48.0 %[facility] HospitalHemoglobin (Bld) [Mass/Vol]11.3 g/dLLow12.0 - 16.0 g/dLPerry County Memorial Hospital IMMATURE GRANULOCYTES ABS AUTO0.59HighNOMI HealthcareImmature granulocytes/100 WBC (Bld)4.4 %High0.0 - 0.5 %[facility] HospitalInterpretation and review of laboratory resultsAbnormalNOMI HealthcareLYMPHOCYTES ABSOLUTE AUTO2.4NOMI HealthcareLymphocytes/100 WBC (Bld)17.8 %Low20.5 - 60.0 %[facility] Health SystemH (RBC) [Entitic mass]29.4 pg26.7 - 34.0 pgNOUniversity HospitalHC (RBC) [Mass/Vol] 32.8 g/dL29.9 - 35.2 g/dLPerry County Memorial HospitalMCV (RBC) [Entitic vol]89.4 fL81.0 - 99.0 fLPerry County Memorial HospitalMONOCYTES ABSOLUTE AUTO1.1HighNOMI HealthcareMonocytes/100 WBC (Bld)8.1 %1.7 - 12.0 %[facility] HospitalNEUTROPHILS ABSOLUTE GEQH8MereSPET HealthcareNeutrophils/100 WBC (Bld)67.8 %43.0 - 75.0 %[facility] HospitalPlatelet mean volume (Bld) [Entitic vol]9.6 fL9.5 - 13.5 fLPerry County Memorial HospitalTBH EO #0.2NOMS [facility]TB [id number] [facility] RBC3.85LowNOMS [facility] WBC13.3High [facility] HospitalCLINISYNPelham Medical CenterTB URINE T PROTEIN CREAT RATIOon 08-29-0227UAIVGKDMFX URINE RANDOM<13.87Ktu81.00 - 300.00 mg/dLPerry County Memorial Hospital Interpretation and review of laboratory resultsAbnormalPerry County Memorial HospitalTOTAL PROTEIN URINE RANDOM<6.0NINF - 11.9 mg/dLPerry County Memorial HospitalCLINISYNPelham Medical Center US OB BPP W NON-STRESSon 89-84-66[address] [address] Ultrasound Report Signed Patient: JUHI GAMA MR#: [id number] : 1995 Acct:[id number] Age/Sex: 30 / F ADM Date: Loc: [facility] 250-[address]: KUNAL HYATT M.D. Ordering Physician: Steph Keane Date of Service: 08/27/25 Procedure(s): US OB BPP w non-stress Accession Number(s): [id number] cc: Steph Keane; Yomaira BELTRAN [place] [address] Patient Name: JUHI GAMA MRN: [facility]:[id number] date: 1995 Sex: F Assigned Patient Location: LAB Current Patient Location: LAB Accession/Order Number: [id number] Exam Date: 08/27/2025 17:37 Report Date: 08/27/2025 [...] Morillo M.D. 08/27/2025 6:02 PM Dictation Location: [place] [address] Electronically authenticated by: [id number] Y Date: 08/27/2025 18:02 Dictated By: Jp Morillo D.O. Signed By: 08/27/251804 DD/ 01 TD/TT: [employer] Supervisor:SATNAMadiology, Radiologist, MD - 08/27/2025 [place] [address] Ultrasound Report Signed Patient: JUHI GAMA MR#: [id number] : 1995 Acct:[id number] Age/Sex: 30 / F ADM Date: Loc: [facility] 250-[address]: KUNAL HYATT M.D. Ordering Physician: Steph Keane Date of Service: 08/27/25 Procedure(s): US OB BPP w non-stress Accession Number(s): [id number] cc: Steph Keane; Yomaira BELTRAN [place] [id number] Patient Name: JUHI GAMA MRN: [facility]:[id number] date: 1995 Sex: F Assigned Patient Location: LAB Current Patient Location: LAB Accession/Order Number: [id number] Exam Date: 08/27/2025 17:37 Report Date: 08/27/2025 [...] Morillo M.D. 08/27/2025 6:02 PM Dictation Location: [place] [address] Electronically authenticated by: [id number] Y Date: 08/27/2025 18:02 Dictated By: Jp Morillo D.O. Signed By: 08/27/251804 DD/ 01 TD/TT: [employer] Supervisor: LANETTE HealthcareRadiology Study observation (narrative)NOMShalonda SmallUS OB BPP W NON-STRESSOrdered By: Radiologist Radiology on 75-28-9597ZX[facility] Work Phone: Urinalysis macro (dipstick) panel (U)on 08-27-2025 Bilirubin, UANegativeNegative - 4(70) +++ mg/dLNOMS HealthcareBlood, UANegative Negative - 50 Teodoro/mcLNOMS HealthcareClarity, UAClearNOMS HealthcareColor, UA YellowNOMS HealthcareGlucose, UANegativeNegative - 2000(110) ++++ mg/dLNOMS HealthcareInterpretation and review of laboratory resultsNormalPerry County Memorial Hospital Ketones, UANegativeNegative - 160(16) ++++ mg/dLOREM [facility] HealthcareLeukocytes, UA NegativeNegative - 500+++ Robinson/mcLNOMI HealthcareNitrite, UANegativeNegative - PositiveNOMI HealthcarepH, UA65 - 9NOMI HealthcareProtein, UANegativeNegative - 2000(20) ++++ mg/dLOREM COMMUNITY [facility]ITAL HealthcareSpec Grav, UA1.0151 - 1.03N[facility] Healthcare Urobilinogen, UA2.00.2 - 12 mg/dLNOMI HealthcareNOMI HealthcareURINE CULTURE, ROUTINEon 17-70-4208Hqlpjlox identified Cx Nom (U) Urine Culture, Routine NOMS HealthcareBacteria identified Cx Nom (U)Mixed urogenital floraNOMI HealthcareBacteria identified Cx Nom (U)25,000-50,000 colony forming units per mLNOMS HealthcareBacteria identified Cx Nom (U)Performed at: - [facility] NOMS HealthcareBacteria identified Cx Nom (U)[address] [place] [address] [id number] HealthcareBacteria identified Cx Nom (U)Tree Climber: Cm Sandoval PhD, Phone: [phone] HealthcareCLINISYNPITTSFIELD GENERAL HOSPITAL Ujjxibeqsf0sc hr Glucose Tolerance 100 gm loadon 99-45-8650Zhzcawg Tolerance Test [address] Rita's HospitalCapillary Glucose POCon 50-53-3697Artbhoc [Mass/Vol]88 mg/rNOncnml67-39TivlczFostoria City HospitalComment on above:Performed By: #### [id number] #### [facility] [address], [place] [address]Bqw 1 Hron 95-59-2088Huzlmsl [Mass/Vol]152 mg/gAJjqlvx03-039 [facility] HospitalComment on above:Performed By: #### [id number] #### [facility] [address], [place] [address]Gio 2 Hron 46-68-0139Xmpvqxg [Mass/Vol]169 mg/sDYbex80-922 [facility] HospitalComment on above:Performed By: #### [id number] #### Rivera [facility] [address], [place] [address]Ryi 3 Hron 63-64-9859Imobxxo [Mass/Vol]141 mg/pRNejc14-729 [facility] HospitalComment on above:Performed By: #### [id number] #### [facility] [address], [place] [address]Xeb Fastingon 84-83-1073Prkerib [Mass/Vol]82 mg/aDLadqlt06-02 [facility] HospitalComment on above:Performed By: #### [id number] #### [facility] [address], [place] [address]Wrtrvtl tolerance, 1 houron 84-69-8743Npnafgo Tolerance Test 1 Jbel997QlmKghtux Health SystemGlucose tolerance, 3 hourson 84-45-7728Wgukxmq Tolerance Test 3 Ietz585CvvLwueye Health SystemGlucose, tolerance fastingon 84-45-7056Kfovwjv Tolerance Test Pnavqzo49WibKfmtkc Health SystemNo Panel Informationon 35-81-8498LgsTqjkvqSt. Rita's HospitalCBC w/ Auto Diffon 08-12-2025 Basophil Absolute0.1 E9/LNormal0.0-0.2Fisher [facility] HospitalComment on above:Performed By: #### [id number] #### [facility] [address] [place] [address]Vgvvatuyu/100 WBC (Bld)0.6 %Normal0.0-2.0F[facility] City HospitalComment on above:Performed By: #### [id number] #### [facility] [address], [place] [address]Hqy Absolute0.1 E9/LNormal0.0-0.5Fisher [facility] Comment on above:Performed By: #### [id number] #### [facility] [address] [place] [address]Uavbzepvudf/100 WBC (Bld)1.0 %Normal0.0-8.0[facility] City HospitalComment on above:Performed By: #### [id number] #### [facility] [address] [place], [place] [address]Bzzpvnlscsw distribution width (RBC) [Ratio]12.9 %Normal 10.9-14.2FMarietta Osteopathic ClinicComment on above:Performed By: #### [id number] #### [facility] [address], [place] [address]Aiwhheafqn (Bld) [Volume fraction]33.1 %Low34.0-46.0F[facility] City HospitalComment on above:Performed By: #### [id number] #### [facility] [address], [place] [address]Ycubkovbzi (Bld) [Mass/Vol]11.4 g/dLLow12.0-16.0F[facility] City HospitalComment on above:Performed By: #### [id number] #### [facility] [address] [place] [address]Pzynd Absolute2.0 E9/LNormal1.0-4.0[facility] Comment on above:Performed By: #### [id number] #### [facility] [address], [place] [address]Lwzjarndjam/100 WBC (Bld)19.6 %Kmrffs19.0-50.0[facility] City HospitalComment on above:Performed By: #### [id number] #### [facility] [address], [place] [address]QSJ (RBC) [Entitic mass]29.9 ptYgolbk99.0-34.0[facility] City HospitalComment on above:Performed By: #### [id number] #### [facility] [address], [place] [address]AFTS (RBC) [Mass/Vol]34.4 g/lACcyonn55.4-36.0[facility] City HospitalComment on above:Performed By: #### [id number] #### [facility] [address], [place] [address]LTQ (RBC) [Entitic vol]86.7 mNCgoymx16.0-100.0F[facility] City HospitalComment on above:Performed By: #### [id number] #### [facility] [address], [place] [address]Diti Absolute0.5 E9/LNormal0.2-1.0[facility] Comment on above:Performed By: #### [id number] #### [facility] [address], [place] [address]Nrkbsnnzd/100 WBC (Bld)4.6 %Normal4.0-14.0[facility] City HospitalComment on above:Performed By: #### [id number] #### [facility] [address], [place] [address]Ioyewp Absolute7.5 E9/LNormal2.0-7.5FMarietta Osteopathic Clinic Comment on above:Performed By: #### [id number] #### [facility] [address] [place] [address]Vayxea Auto74.2 %Mobrsq53.0-75.0[facility] Comment on above:Performed By: #### [id number] #### [facility] [address] [place] [address]Gvxtnnrz960.0 E9/HGmyxtm118.0-500.0[facility] Comment on above:Performed By: #### [id number] #### [facility] [address] [place] [address]Kdmapqwf mean volume (Bld) [Entitic vol]8.1 fLNormal6.4-10.8 [facility] HospitalComment on above:Performed By: #### [id number] #### [facility] [address], [place] [address]OTE1.8 E12/LLow4.3-5.9[facility] City HospitalComment on above:Performed By: #### [id number] #### [facility] [address] [place] [address]SNW25.1 E9/LNormal4.0-11.0[facility] City HospitalComment on above:Performed By: #### [id number] #### [facility] [address] [place], [place] [address]Shriwafrqa 53-45-1557Smymtazp Lvl7 ng/wPLfz91-016ZvciulFostoria City HospitalComment on above:Performed By: #### [id number] #### Miguel [facility] [address] [place], [place] [address]Nrkrunhk 80-60-3866Lwbfye Lvl>22.3Normal>=6.7FMarietta Osteopathic ClinicComment on above:Performed By: #### [id number] #### [facility] [address] [place], [place] [address]Dvlo Scr Glu 1 Hron 78-43-8301Phtkeqt [Mass/Vol]155 mg/dLHigh 55-140Fostoria City HospitalComment on above:Performed By: #### [id number] #### [facility] [address] [place] [address]Jfqpthc 1h post 50g loadon 57-88-0448Mwpybqj, 1 hr PP 50GM dose 155ProMedica Health SystemIronon 26-85-5016Xcnv37 microgram/xGWfkizg15-338ZhlgpuFostoria City HospitalComment on above:Performed By: #### [id number] #### [facility] [address] [place], [place] [address]Vn Panel Informationon 35-27-8605FIBH HealthcareTIBC Calculated on 16-15-0020GUJX931 microgram/cHCtfj705-679AokfaaFostoria City HospitalComment on above:Performed By: #### [id number] #### [facility] [address] [place], [place] [address]Llyavmqgdei [Mass/Vol]455 mg/rDSmip999-093EkujosFostoria City HospitalComment on above:Performed By: #### [id number] #### [facility] [address] [place], [place] [address]WG OB LIMITED 1+ FETUSESon 34-50-0401FA OB LIMITED 1+ FETUSES FINDINGS: Single viable [...] Delivery: 11/28/25 Gestational Age as of 07/21/2025: 64y6sEyiobgspux macro (dipstick) panel (U)on 00-61-0026Ehkvazyto, UANegativeNegative - 4(70) +++ mg/dLNOMS HealthcareBlood, UANegativeNegative [...] HealthcareUrobilinogen, UA1.00.2 - 12 mg/dLNOMS HealthcareVit B12on 56-98-3652Lkqxhtkqi (Vitamin B12) [Mass/Vol]205 pg/nQTgkxge32-5869Bkciec [facility] HospitalComment on above:Performed By: #### [id number] #### Miguel [facility] [address] [place], [place] [address]RKR w/ Auto Diffon 56-85-2911Chkmfodo Absolute0.0 E9/LNormal 0.0-0.2Fisher [facility] HospitalComment on above:Performed By: #### [id number] #### Miguel [facility] [address] [place], [place] [address]Sxefusdux/100 WBC (Bld)0.2 %Normal0.0-2.0F[facility] City HospitalComment on above:Performed By: #### [id number] #### [facility] [address] [place] [address]Ycy Absolute0.1 E9/LNormal0.0-0.5FMarietta Osteopathic Clinic Comment on above:Performed By: #### [id number] #### [facility] [address] [place], [place] [address]Wprftkgibnc/100 WBC (Bld)0.5 %Normal0.0-8.0[facility] City HospitalComment on above:Performed By: #### [id number] #### [facility] [address] [place] [address]Liewcmaqcgq distribution width (RBC) [Ratio]13.0 %Normal 10.9-14.2FMarietta Osteopathic ClinicComment on above:Performed By: #### [id number] #### [facility] [address] [place] [address]Obfcxeynlc (Bld) [Volume fraction]31.9 %Low34.0-46.0F[facility] City HospitalComment on above:Performed By: #### [id number] #### [facility] [address] [place] [address]Lpkhkjlnyg (Bld) [Mass/Vol]11.1 g/dLLow12.0-16.0F[facility] City HospitalComment on above:Performed By: #### [id number] #### [facility] [address] [place] [address]Usaej Absolute2.1 E9/LNormal1.0-4.0[facility] Comment on above:Performed By: #### [id number] #### [facility] [address] [place], [place] [address]Bgnjsrirzvh/100 WBC (Bld)16.2 %Qgaepg85.0-50.0F[facility] City HospitalComment on above:Performed By: #### [id number] #### [facility] [address] [place], [place] [address]MEF (RBC) [Entitic mass]29.9 jhKpioob55.0-34.0[facility] City HospitalComment on above:Performed By: #### [id number] #### [facility] [address] [place] [address]XTZL (RBC) [Mass/Vol]34.8 g/rAQhcyjo69.4-36.0[facility] HospitalComment on above:Performed By: #### [id number] #### [facility] [address] [place] [address]SDI (RBC) [Entitic vol]85.7 gPVnenye80.0-100.0[facility] City HospitalComment on above:Performed By: #### [id number] #### [facility] [address] [place] [address]Fqsf Absolute0.9 E9/LNormal0.2-1.0[facility] Comment on above:Performed By: #### [id number] #### [facility] [address] [place] [address]Ekhunohgj/100 WBC (Bld)7.0 %Normal4.0-14.0[facility] City HospitalComment on above:Performed By: #### [id number] #### [facility] [address] [place] [address]Zdqbtr Absolute9.7 E9/LHigh2.0-7.5Fisher [facility] Comment on above:Performed By: #### [id number] #### [facility] [address] [place] [address]Ffiizw Auto76.1 %High36.0-75.0[facility] Comment on above:Performed By: #### [id number] #### [facility] [address] [place] [address]Rnvwthum647.0 E9/TNpwhax533.0-500.0[facility] Comment on above:Performed By: #### [id number] #### [facility] [address] [place], [place] [address]Qaxtfuol mean volume (Bld) [Entitic vol]8.0 fLNormal6.4-10.8 [facility] HospitalComment on above:Performed By: #### [id number] #### [facility] [address] [place], [place] [address]WUY1.7 E12/LLow4.3-5.9[facility] HospitalComment on above:Performed By: #### [id number] #### [facility] [address] [place], [place] [address]KJA42.8 E9/LHigh4.0-11.0[facility] HospitalComment on above:Performed By: #### [id number] #### [facility] [address] [place], [place] [address]NNTqh 68-07-8377ZU4 [Moles/Vol]20 mmol/SHjt72-96StmhrkFostoria City HospitalComment on above:Performed By: #### [id number] #### [facility] [address] [place], [place] [address]Vwins gap [Moles/Vol]16 mmol/LNormal6-16F[facility] City HospitalComment on above:Performed By: #### [id number] #### [facility] [address] [place], [place] [address]Cklkkni [Mass/Vol]3.8 g/dLNormal3.3-5.0F[facility] City HospitalComment on above:Performed By: #### [id number] #### [facility] [address] [place], [place] [address]Njolaam/Globulin [Mass ratio]1.3 {ratio}Normal1.1-2.2FMarietta Osteopathic ClinicComment on above:Performed By: #### [id number] #### [facility] [address] [place], [place] [address]Ztu Phos78 Int._Unit/UOllbhh49-46XzurfaFostoria City Hospital Comment on above:Performed By: #### [id number] #### [facility] [address] [place], [place] [address]ESD23 Int._Unit/LNormal6-46F[facility] City HospitalComment on above:Performed By: #### 7072504 #### [facility] [address] [place], [place] [address]RJO70 Int._Unit/LNormal5-43F[facility] City HospitalComment on above:Performed By: #### [id number] #### [facility] [address] [place], [place] [address]Njvg Total0.8 mg/dLNormal0.0-1.1FMarietta Osteopathic Clinic Comment on above:Performed By: #### [id number] #### [facility] [address] [place], [place] [address]RMK/Creat Ratio18 No RzfsoPujxcx30-79QceycwFostoria City HospitalComment on above:Performed By: #### [id number] #### [facility] [address] [place], [place] [address]Wezlgxl [Mass/Vol]8.9 mg/dLNormal8.9-11.1FMarietta Osteopathic ClinicComment on above:Performed By: #### [id number] #### [facility] [address] [place], [place] [address]Awrsitwy [Moles/Vol]104 mmol/MUljthc271-990NodpxdFostoria City HospitalComment on above:Performed By: #### [id number] #### [facility] [address] [place], [place] [address]Eoiifserab [Mass/Vol]0.6 mg/dLNormal0.5-1.3FMarietta Osteopathic ClinicComment on above:Performed By: #### [id number] #### [facility] [address], [place] [address]Rfsrnmae (S) [Mass/Vol]3.0 g/dLNormal1.4-4.0[facility] City HospitalComment on above:Performed By: #### [id number] #### [facility] [address], [place] [address]Uktonnq [Mass/Vol]92 mg/qDLnlsbh56-027FzjcmkFostoria City HospitalComment on above:Performed By: #### [id number] #### Rivera [facility] [address], [place] [address]Dwviytzfv [Moles/Vol]3.7 mmol/LNormal3.5-5.3FMarietta Osteopathic ClinicComment on above:Performed By: #### [id number] #### Rivera [facility] [address], [place] [address]Oxzfiul [Mass/Vol]6.8 g/dLNormal6.0-7.8Fostoria City HospitalComment on above:Performed By: #### [id number] #### [facility] [address], [place] [address]Fpcijx [Moles/Vol]136 mmol/LLlggaj226-697YmxymtFostoria City HospitalComment on above:Performed By: #### [id number] #### [facility] [address], [place] [address]Jfau nitrogen [Mass/Vol]11 mg/dLNormal5-21F[facility] City HospitalComment on above:Performed By: #### [id number] #### [facility] [address], [place] [address]Bjkcs Panelon 93-84-1713Mqvovepdobr [Mass/Vol]239 mg/dLHigh 120-200F[facility] City HospitalComment on above:Performed By: #### [id number] #### [facility] [address], [place] [address]Czwlferutdx in HDL [Mass/Vol]88 mg/dLInvalid Interpretation CodeFostoria City HospitalComment on above:Result Comment: '>= 60 LOW RISK' '<= 40 HIGH RISK'Performed By: #### [id number] #### [facility] [address], [place] [address]Azgymymaocy in LDL [Mass/Vol]144 mg/dLHigh<=129F[facility]oria City HospitalComment on above:Performed By: #### [id number] #### [facility] [address] [place], [place] [address]Etkrmocjrjn in VLDL [Mass/Vol]40 mg/dLNormal7-40F[facility] City HospitalComment on above:Performed By: #### [id number] #### [facility] [address], [place] [address]Pqcvlysplyuw [Mass/Vol]202 mg/dLHigh<=149F[facility] City HospitalComment on above:Performed By: #### [id number] #### [facility] [address] [facility] [place], [place] [address]uOTFpg 98-96-7842sOQP492 mL/min/1.73 v9Ruuyli>=59Fostoria City HospitalComment on above:Performed By: #### [id number] #### [facility] [address], [place] [address]UBB, SERUM, OPEN SPINA BIFIDAon 54-21-3537HAC MOM0.95.[facility] HealthcareAFP VALUE59.2 ng/mL.[facility] HealthcareCOMMENT:Comment.[facility] Healthcare Comment on above:Amy Ramos, Ph.D., [facility] Director References: Available Upon Request. Multiples Of Median Cutoffs For AFP Elevations Hsieh 2.5 Black 2.8 IDD 2.0 Twins 4.5 Abbreviation Definitions IDD - Insulin Dep Diabetes OSBR - Open Spina Bifida Risk For further inquiries contact [employer] at [phone]. This test was developed and its performance characteristics determined by [employer]. It has not been cleared or approved by the Food and Drug Administration. Performed at: [facility] [address], [place] [id number] Tree Climber: Dona Justin [facility], Phone: [phone] GEST. AGE ON COLLECTION DATE20.6. weeksNOMS HealthcareGESTAT. AGE BASED ONLMP. NOMS HealthcareComment on above:Recalculations are not recommended when gestational dating by LMP and ultrasound are within 10 days. INSULIN DEP DIABETESNo.[facility] HospitalINTERPRETATIONComment.[facility] Comment on above:Interpretation: Screen [...] Customer Services to discuss available options. The [employer] recommends amniocentesis be offered to women age 35 and older. MATERNAL AGE AT EDD30.7. yrNOMI HealthcareMULTIPLE GESTATIONNo.[facility] OSBR RISK 1 [id number].[facility] Memorial HospitalRACECaucasian.[facility] HospitalRESULTSReport. [facility] HospitalTEST RESULTS:Negative.[facility] HospitalIcnjubaqltFXZHQW734. lbKittitas Valley Healthcare HealthcarePREGNANCY N N LMP [id number] 2 17 N 1 Y 146 N N N N N White/ CLINISYNCNOMI HealthcareUS OB 14+ WEEKS ANATOMY SCANon 10-00-8080GV OB 14+ WEEKS ANATOMY SCANEXAM: US OB [...] MD, PHD at 16-Jul-2025 08:07:07 AM [facility]aur[facility] TeleradiologyNormalNot AvailableComment on above:Order Comment: US OB ANATOMY SINGLE W US OB CERVICAL LENGTH Estimated Date of Delivery: 11/28/25 Gestational Age as of 06/22/2025: 56o8vDngeldcfhj macro (dipstick) panel (U)on 07-52-5507Dyplkelgd, UANegativeNegative - 4(70) +++ mg/dLNOMS HealthcareBlood, UANegativeNegative [...] 12 mg/dLNOMS HealthcareNOMS Healthcare RECURRENT VAGINITIS (HTRX)on 70-08-5133ANXNQHUVL SXWMKLF1WGKS Healthcare ATOPOBIUM VAGINAENot detectedNOMS HealthcareBVAB 2,3 (BACTERIAL VAGINOSIS ASSOCIATED BACTERIA 2, 3); MOBILUNCUS NAU4SRNV HealthcareBVAB 2,3 (BACTERIAL VAGINOSIS ASSOCIATED BACTERIA 2, 3); MOBILUNCUS SPPNot detectedNOMS Healthcare RADHA ALBICANS, PARAPSILOSIS, WEPZOYFTML5SLBI HealthcareCANDIDA ALBICANS, PARAPSILOSIS, TROPICALISNot detectedNOMS HealthcareCANDIDA MZCKIFQT3ZLLE HealthcareCANDIDA GLABRATANot detectedNOMS HealthcareCANDIDA OHEKAJ8ZLKR HealthcareCANDIDA KRUSEINot detectedNOMS HealthcareCHLAMYDIA VKSXFDZOWHW9BCZH HealthcareCHLAMYDIA TRACHOMATISNot detectedNOMS HealthcareGARDNERELLA VAGINALIS 17.967AbnormalNOMS HealthcareGARDNERELLA VAGINALISDetectedAbnormalNOMI HealthcareInterpretation and review of laboratory resultsAbnormalNOMI Healthcare MEGASPHAERA (TYPES 1, 2)0NOMS HealthcareMEGASPHAERA (TYPES 1, 2)Not detectedNOMS HealthcareMYCOPLASMA NUEIAFUFMJ3ATKL HealthcareMYCOPLASMA GENITALIUMNot detectedNOMS HealthcareNEISSERIA LMCOOSWGHJT9DNCK HealthcareNEISSERIA GONORRHOEAENot detectedNOMS HealthcareTRICHOMONAS PUMEYEXQU0HWJX Healthcare TRICHOMONAS VAGINALISNot detectedNOMS HealthcareNOMS HealthcareUrinalysis macro (dipstick) panel (U)on 01-18-6324Onqilxpss, UANegativeNegative - 4(70) +++ mg/dL NOMS HealthcareBlood, UANegativeNegative - 50 Teodoro/mcLNOMS HealthcareClarity, UA ClearNOMS HealthcareColor, UAYellowNOMS HealthcareGlucose, UANegativeNegative - 2000(110) ++++ mg/dLNOMS HealthcareInterpretation and review of laboratory resultsNormalNOMI HealthcareKetones, UANegativeNegative - 160(16) ++++ mg/dLNOMS HealthcareLeukocytes, UANegativeNegative - 500+++ Robinson/mcLNOMS Healthcare Nitrite, UANegativeNegative - PositiveNOMS HealthcarepH, UA65 - 9N[facility] Healthcare Protein, UANegativeNegative - 1999(20) ++++ mg/dLNOMS HealthcareSpec Grav, UA 1.0051 - 1.03NOMS HealthcareUrobilinogen, UA1.00.2 - 12 mg/dLNOMI HealthcareNOMI HealthcareUrinalysis macro (dipstick) panel (U)on 83-05-9289Rsdzntyic, UA NegativeNegative - 4(70) +++ mg/dLNOMI HealthcareBlood, UANegativeNegative - 50 Teodoro/mcLNOMI HealthcareClarity, UAClearNOMS HealthcareColor, UAYellowNOMI HealthcareGlucose, UANegativeNegative - 2000(110) ++++ mg/dLOR[facility] Healthcare Interpretation and review of laboratory resultsNormalOREM COMMUNITY [facility] HealthcareKetones, UA NegativeNegative - 160(16) ++++ mg/dLOR[facility] HealthcareLeukocytes, UAPositive Negative - 500+++ Robinson/mcLOREM COMMUNITY [facility]OSPITAL HealthcareComment on above:smallNitrite, UA NegativeNegative - PositiveNOMI HealthcarepH, UA6.55 - 9NOMS HealthcareProtein, UANegativeNegative - 1999(20) ++++ mg/dLNOMI HealthcareSpec Grav, UA1.011 - 1.03 NOMS HealthcareUrobilinogen, UA0.20.2 - 12 mg/dLFreeman [facility] Healthcare BOX TESTon 94-45-1832JQM TEST SENT OUTunGibson General HospitalMfybqoftaxMRR7lmekjFLUH UcfynvniwuJLH48/08/20NOCarondelet HealthUNITY BOX CLINISYNCCBC without diffon 12-86-4794Xsajyxqcvu (Bld) [Volume fraction]39.8 % [facility] SystemHemoglobin (Bld) [Mass/Vol]13.2 g/dLSt. Rita's HospitalPlatelets (Bld) [#/Vol]390 10*3/uLSt. Rita's HospitalRbc Mcv (Fl) By Automated Count84.7St. Rita's HospitalDrug Screen, Urineon 05-04-2025 Amphetamine/MethamphetamineNegativeGuernsey Memorial Hospital SystemBarbituratesNegative [facility] SystemBenzodiazepinesNegativeGuernsey Memorial Hospital SystemCocaine MetaboliteNegativeGuernsey Memorial Hospital SystemMethadoneNegativeGuernsey Memorial Hospital SystemOpiatesNegativeProMedica Health SystemOxycodoneNegativeProMedica Health SystemPhencyclidineNegativeProMedica Health SystemThc Marijuana, UrineNegative [facility] SystemHBV surface Ag IA Qlon 74-84-7031Tclgvvjyv B Surface AntigenNegativeProMedica Health SystemHCV Ab IA Qlon 72-39-9378MXM Ab Ql (S) Non-ReactiveProMedinj Health SystemHIV 1+2 Ab+HIV1 p24 Ag IA Qlon 01-13-6407LIC 1&2 AB/AGNon-ReactiveGuernsey Memorial Hospital SystemHemoglobin A1con 54-53-0887LfK5c (Bld) [Mass fraction]5.3 %4.0 - 6.0 %[facility] SystemNo Panel Information on 31-31-2155MSOX HealthcareRubella IGG immune statusOrdered By: Angeline Velasquez on 19-30-8869Lhwgqpz immune IgGProFlorala Memorial Hospital Health SystemType and screenon 40-00-1957Pqd/Rh(D)PositiveProCleveland Clinic Medina HospitalHCG ( test) Ql (U)on 20-25-8514Mexvcugaxqootv and review of laboratory resultsAbnormalNOMI Healthcare Preg Test, UrPositiveNegativeNOCarondelet HealthNOMI HealthcareUS OB TRANSVAGINALon 86-25-0074XttPort[place] [address] Ultrasound Report Signed Patient: JUHI COPE MR#: [id number] : 1995 Acct:[id number] Age/Sex: 30 / F ADM Date: 05/01/25 Loc: US Attending Dr: Nathan Pop D.O. Ordering Physician: Nathan Pop D.O. Date of Service: 05/01/25 Procedure(s): US OB transvaginal Accession Number(s): [id number] cc: Nathan Pop D.O.; Physician,Non-Staff Katherine The [address] [address] Patient Name: JUHI COPE MRN: [id number] date: 1995 Sex: F Assigned Patient Location: US Current Patient Location: US Accession/Order Number: [id number] Exam Date: 05/01/2025 08:57 Report Date: 05/01/2025 [...] Faria M.D. 05/01/2025 9:01 AM Dictation Location: [place] [address] Electronically authenticated by: [id number] Y Date: 05/01/2025 09:01 Dictated By: Will Faria M.D. Signed By: 05/01/2504 DD/ 0 TD/TT: [employer] Supervisor:TBHRadiology, Radiologist, MD - 05/01/2025 [place] [address] Ultrasound Report Signed Patient: JUHI COPE MR#: [id number] : 1995 Acct:[id number] Age/Sex: 30 / F ADM Date: 05/01/25 Loc: US Attending Dr: Nathan Pop D.O. Ordering Physician: Nathan Pop D.O. Date of Service: 05/01/25 Procedure(s): US OB transvaginal Accession Number(s): [id number] cc: Nathan Pop D.O.; Physician,Non-Staff Katherine [address] [address] Patient Name: JUHI COPE MRN: [id number] date: 1995 Sex: F Assigned Patient Location: US Current Patient Location: US Accession/Order Number: [id number] Exam Date: 05/01/2025 08:57 Report Date: 05/01/2025 [...] Faria M.D. 05/01/2025 9:01 AM Dictation Location: [place] [address] Electronically authenticated by: [id number] Y Date: 05/01/2025 09:01 Dictated By: Will Faria M.D. Signed By: 05/01/25903 DD/ 0 TD/TT: [employer] Supervisor: LANETTE HealthcareRadiology Study observation (narrative)LANETTE SmallUS OB TRANSVAGINALOrdered By: Radiologist Radiology on 78-21-7664XZND Healthcare Work Phone: Urinalysis macro (dipstick) panel (U)on 05-01-2025 Bilirubin, UANegativeNegative - 4(70) +++ mg/dLNOMS HealthcareBlood, UANegative Negative - 50 Teodoro/mcLNOMS HealthcareClarity, UAClearNOMS HealthcareColor, UA YellowNOMS HealthcareGlucose, UANegativeNegative - 2000(110) ++++ mg/dLNOMS HealthcareInterpretation and review of laboratory resultsNormalNOMI Healthcare Ketones, UANegativeNegative - 160(16) ++++ mg/dLNOMS HealthcareLeukocytes, UA NegativeNegative - 500+++ Robinson/mcLNOMS HealthcareNitrite, UANegativeNegative - PositiveNOMS HealthcarepH, UA5.55 - 9NOMS HealthcareProtein, UANegativeNegative - 2000(20) ++++ mg/dLNOMS HealthcareSpec Grav, UA1.021 - 1.03NOMS Healthcare Urobilinogen, UA1.00.2 - 12 mg/dLNOMS HealthcareNOMS HealthcareCHEMISTRYOrdered By: SYSTEM SYSTEM on 88-89-0468Drhlbteamhpz Lvl31.35 ng/mLInvalid Interpretation CodeRemisol ChemComment on above:Result Comment: 'F NON FOLLICULAR = 0.10 - 0.60' 'LUTEAL = 3.00 - 17.5' 'MIDLUTEAL = 3.30 - 18.6' 'POST-MENOPAUSE = 0.10 - 0.40' '-FIRST TRIMESTER = 8.30 - 66.5' 'SECOND TRIMESTER = 18.9 - 66.1' 'THIRD TRIMESTER = 35.8 - 312.4' 'MALES = 0.14 - 2.06'Progesteroneon 43-09-4418Ntsjkquhakyo Lvl31.35 ng/mLInvalid Interpretation CodeFostoria City HospitalComment on above:Result Comment: 'F NON FOLLICULAR = 0.10 - 0.60' 'LUTEAL = 3.00 - 17.5' 'MIDLUTEAL = 3.30 - 18.6' 'POST-MENOPAUSE = 0.10 - 0.40' '-FIRST TRIMESTER = 8.30 - 66.5' 'SECOND TRIMESTER = 18.9 - 66.1' 'THIRD TRIMESTER = 35.8 - 312.4' 'MALES = 0.14 - 2.06'Performed By: #### [id number] #### [facility] [address] [place], [place] [address]Paaecfdbmzymul 42-21-1676Cbcoinylbciy5.2 ng/mLNormal.The [facility]rmc Physician GroupComment on above:Result Comment: Follicular phase 0.1 - 0.9 Luteal phase 1.8 - 23.9 Ovulation phase 0.1 - 12.0 First trimester 11.0 - 44.3 Second trimester 25.4 - 83.3 Third trimester 58.7 - 214.0 Postmenopausal 0.0 - 0.1 Performed at: - [facility] [id number] Tree Climber: Cm Sandoval PhD, Phone: [phone] PERFORMED BY: [address] [place] [address] PATHOLOGIST MUSEUM ASSISTANT ARNULFO THOMAS M.D.Performed By: #### PROG #### [facility] , Transvaginal Non-OBon 03-99-1054NO Transvaginal Non-OBExam Date/Time: 01/22/2025 16:22 EST Reason for Exam: N94.6 Report PLEASE SEE US Pelvis Non-OB Complete REPORT DATED: 01/22/2025. Ordering Provider: Nathan POP FINAL REPORT Dictated: 01/27/2025 10:11 am Siddharth Foy MD Signed (Electronic Signature): 01/27/2025 10:11 am Signed by: Siddharth Foy MD Transcribed by: ELOISA Technologist: Filiberto [facility] HospitalUS Pelvis Non-OB Completeon 98-67-8344DF Pelvis Non-OB CompleteExam Date/Time: 01/22/2025 16:24 EST [...] Kate Gonzalez MD Transcribed by: ELOISA Technologist: TalyaFostoria City HospitalMILADY,APTIMA HPV,AGE GDLNon 59-89-0428ZYE GDLN ACOG TESTINGNote.NOMS HealthcareComment on above:TESTS RESULT FLAG UNITS REF RANGE LAB Clinician Provided Cytology Information Source.............Cervix;Endocervix No. of containers..01 ThinPrep Vial Age Algo ACOG Sarah... -24 12 FLAG LEGEND: L-Low Normal,H-High Normal,LL-Alert Low,HH-Alert High <-Panic Low,>-Panic High,A-Abnormal,AA-Critical Abnormal Performed at: 01 =G [facility] [place] [address] Loren Oneal MD, IGP, RFX APTIMA HPV ASCUNote.[facility] HealthcareComment on above:TESTS RESULT FLAG UNITS REF RANGE LAB DIAGNOSIS: 02 NEGATIVE FOR INTRAEPITHELIAL LESION OR MALIGNANCY. Specimen adequacy: 02 Satisfactory for evaluation. Endocervical and/or squamous metaplastic cells (endocervical component) are present. Performed by: Sophai Calzada, Auto Body Repair Teacher ([facility]) . 02 Note: Note 02 The Pap [...] <-Panic Low,>-Panic High,A-Abnormal,AA-Critical Abnormal Performed at: [address] [address] Loren Oneal MD, Performed at: =G - [facility] [id number] Tree Climber: Loren Oneal MD, Phone: [phone] Performed at: [facility] [id number] Tree Climber: Loren Oneal MD, Phone: [phone] BRUSH-SPATULA CERVIX ENDOCERVIX [facility] 00-12-5679JUAIAblhzuozt (WHQ) JUHI COPE ([id number]) 1995 F Date Time Provider Department 04/29/24 [...] Encounter Status:Closed by CANDIS GARCES on 04/29/24[facility] 00-63-2316ISJIRpssphqoe (WHQ) JUHI COPE ([id number]) 1995 F Date Time Provider Department 04/25/24 CHARLENE RODRIGUEZ During your visit today, we recorded the following information about you: Anna De Leon 04/25/2024 1:10 PM Signed Pt got in sooner for surgery with her local library consultant. Please cancel surgery and all pre and [...] Encounter Status:Closed by SUSI DE LEONLEY on 04/25/24[facility] 12-LEADon 30-54-9431[address] [address] Electrocardiograph Report Signed Patient: JUHI COPE MR#: [id number] : 1995 Acct:[id number] Age/Sex: 28 / F ADM Date: 02/13/24 Loc: PST Attending Dr: Nathan Pop D.O. Ordering Physician: Nathan Pop D.O. Date of Service: 02/13/24 Procedure(s): ECG 12 lead Accession Number(s): [id number] cc: [facility] Test Date: 2024-02-13 Pat Name: JUHI COPE Department: Room: - Gender: Female Cylinder Inspector: : 1995 Requested By: NATHAN POP Order Number: [id number] Reading MD: MARY KATE ORDAZ Measurements Intervals [place] Rate: 86 P: 31 RI: 133 QRS: 20 QRSD: 89 T: 47 QT: 374 QTc: 449 Interpretive Statements SINUS RHYTHM No previous ECG available for comparison Electronically Signed On 02-14-2024 6:50:27 EDT by MARY KATE ORDAZ Dictated By: Mary Kate Ordaz D.O. Signed By: 02/14/24 0650 DD/ 1455 TD/TT: Potato Chip Processing Supervisor:TBHRadiology, Radiologist, MD - 02/14/[address] [address] Electrocardiograph Report Signed Patient: JUHI COPE MR#: [id number] : 1995 Acct:[id number] Age/Sex: 28 / F ADM Date: 02/13/24 Loc: PST Attending Dr: Nathan Pop D.O. Ordering Physician: Nathan Pop D.O. Date of Service: 02/13/24 Procedure(s): ECG 12 lead Accession Number(s): [id number] cc: [facility] Test Date: 2024-02-13 Pat Name: JUHI COPE Department: Room: - Gender: Female Cylinder Inspector: : 1995 Requested By: NATHAN POP Order Number: [id number] Reading MD: MARY KATE ORDAZ Measurements Intervals [place] Rate: 86 P: 31 RI: 133 QRS: 20 QRSD: 89 T: 47 QT: 374 QTc: 449 Interpretive Statements SINUS RHYTHM No previous ECG available for comparison Electronically Signed On 02-14-2024 6:50:27 EDT by MARY KATE ORDAZ Dictated By: Mary Kate Ordaz D.O. Signed By: 02/14/24 0650 DD/ 1455 TD/TT: Pot[employer] Supervisor: LANETTE HealthcareECG 12-LEADOrdered By: Radiologist Radiology on 95-10-6974[facility] Work Phone: ECG 12-LEADon 87-22-4934Pyhuqkdsb Study observation (narrative)LANETTE HealthcareUS PELVIS W/ TRANSVAGINALon 27-95-1561VhkPort[place] [address] Ultrasound Report Signed Patient: JUHI COPE MR#: [id number] : 1995 Acct:[id number] Age/Sex: 28 / F ADM Date: 01/15/24 Loc: [facility] Attending Dr: Nathan Pop D.O. Ordering Physician: Nathan Pop D.O. Date of Service: 01/15/24 Procedure(s): US pelvis w/ transvaginal Accession Number(s): [id number] cc: Nathan Pop D.O.; Physician,Non-Staff Katherine The [address] [address] Patient Name: JUHI COPE MRN: [id number] date: 1995 Sex: F Assigned Patient Location: [facility] Current Patient Location: [facility] Accession/Order Number: [id number] Exam Date: 01/15/2024 07:57 Report Date: 01/15/2024 [...] Signed By: 01/15/24 1144 DD/ 1142 TD/TT: Potato Chip Processing Supervisor:TBHRadiology, Radiologist, - 01/15/2024 [place] [address] Ultrasound Report Signed Patient: JUHI COPE MR#: [id number] : 1995 Acct:[id number] Age/Sex: 28 / F ADM Date: 01/15/24 Loc: [facility] Attending Dr: Nathan Pop D.O. Ordering Physician: Nathan Pop D.O. Date of Service: 01/15/24 Procedure(s): US pelvis w/ transvaginal Accession Number(s): [id number] cc: Nathan Pop D.O.; Physician,Non-Staff M.DKaren The [place] [address] Patient Name: JUHI COPE MRN: [id number] date: 1995 Sex: F Assigned Patient Location: [facility] Current Patient Location: [facility] Accession/Order Number: [id number] Exam Date: 01/15/2024 07:57 Report Date: 01/15/2024 [...] Signed By: 01/15/24 1144 DD/ 1142 TD/TT: Potato Chip Processing Supervisor: LANETTE HealthcareRadiology Study observation (narrative)[facility] HealthcareUS PELVIS W/ TRANSVAGINALOrdered By: Radiologist Radiology on 71-96-2034[employer] Work Phone: cNPTanya [phone] (Q) JUHI COPE ([id number]) 1995 F Date Time Provider Department 12/12/23 [...] [I10] Encounter Status:Closed by CANDIS GARCES on 12/12/23[facility] 04-46-9998CDEIKvlwgg Visit (GYMGME) JUHI COPE ([id number]) 1995 F Date Time Provider Department 12/10/23 10:30 AM CHARLENE RODRIGUEZ During your visit today, we recorded the following information about you: Pulse Blood pressure Weight 98/minute 124/84 68.9 kg Charlene Rodriguez DO 12/10/2023 3:14 PM Signed [facility] SECTION FOR MINIMALLY INVASIVE GYNECOLOGIC SURGERY OUTPATIENT VISIT DATE 12/10/2023 OUTPATIENT VISIT TYPE Follow-up visit PRIMARY CARE PHYSICIAN: Denny Rodríguez [address] [place] [address] REFERRING PHYSICIAN: Self CHIEF COMPLAINT: No chief [...] MRI: no evidence of Past Gynecologic History: Hamper Maker Machine History LMP: 07/08/2023 (Exact Date), Having periods Age at Menarche: 14 Age at First : 27 Age at Menopause: Hamper Maker Machine History Comments: Sexual Activity: Never; No partner [...] Skin: Skin color, texture (more content not included)...NormalCommunity Regional Medical Centerology Cervical or vaginal smear or scraping studyon 72-95-5161POBS HealthcareCNPNon 14-35-5842SJWBLdpluesbj ([facility]) JUHI COPE ([id number]) 1995 F Date Time Provider Department 08/02/23 CHARLENE RODRIGUEZ [facility] During your visit today, we recorded [...] completed via Cover MyMeds. Juhi Cope (Morales: [id number]) - [id number] Orilissa 150MG tablets Status: Sent To Plan [...] [I10] Encounter Status:Closed by JENIFER LYNN on 08/02/23[facility] 75-28-3484ABWRFgvvhk Visit (GYMGME) JUHI COPE ([id number]) 1995 F Date Time Provider Department 07/16/23 11:30 AM CHARLENE RODRIGUEZ During your visit today, we recorded the following information about you: Blood pressure Last Period 136/90 07/08/23 Charlene Rodriguez DO 07/16/2023 12:41 PM Signed [facility] SECTION FOR MINIMALLY INVASIVE GYNECOLOGIC SURGERY OUTPATIENT VISIT DATE 07/16/2023 OUTPATIENT VISIT TYPE Follow-up visit PRIMARY CARE PHYSICIAN: Denny Rodríguez [address] [place] [address] REFERRING PHYSICIAN: Denny Rodríguez CHIEF COMPLAINT: No [...] additional bowel lesions identified Past Gynecologic History: Hamper Maker Machine History LMP: 07/08/2023 (Exact Date), Having periods Age at Menarche: 14 Age at First : 27 Age at Menopause: Hamper Maker Machine History Comments: Sexual Activity: Never; No partner [...] POSITIVES IN BOLD Cons (more content not included)...NormalFirelands Regional Medical Center South CampusMRI FEMALE PELVIS WO/W IVCONon 79-59-3225JRK FEMALE PELVIS WO/W IVCON* * *Final Report* * * DATE OF EXAM: Jun 12 2023 2:47PM [facility] 0713 - MRI FEMALE PELVIS WO/W IVCON [...] additional findings. IMPRESSION: No deep infiltrating endometriosis. Potato Chip Processing Supervisor: DAVID Transcribe Date/Time: Jun 12 2023 2:54P Dictated by : ASHLEY DUKE MD This examination was interpreted and the report reviewed and electronically signed by: SONIDO FLAHERTY MD on Jun 12 2023 4:51PM EST [id number] Health Fairfield HospitalCNPNon 41-66-9075LFMJBoymuvegx (GYNMN) JUHI COPE ([id number]) 1995 F Date Time Provider Department 05/11/23 CHARLENE RODRIGUEZ GYNMN During your visit today, we recorded the following information about you: Tawana Nair [facility] 05/11/2023 1:21 PM Signed Reason for call: [...] aygestin 5mg daily. She did not pickle solution maker flexeril. Encourage to pickle solution maker the flexeril as this will help with the cramping. Reviewed red flag bleeding symptoms that require trip to ER (soaking greater than one overnight pad per hour, chest pain, shortness of breath, fatigue, palpitations).. Advised keep appt. Gives verbal understanding. Appointments for Next 60 Days Date Time Provider Location Dept Phone 05/17/2023 1:00 PM CHARLENE RODRIGUEZ [facility] [phone] Candis Suárez RN Allergies As of Date: 05/11/2023 (No Known Allergies) Date Reviewed: 05/09/2023 Reviewed by: Jihan Downs APRN.SUPERVISOR RIPRAP PLACING - Fully Assessed Reason for Visit: Vaginal [...] [I10] Encounter Status:Closed by CANDIS WILLINGHAM on 05/11/23M[facility] Memorial HospitalGracie [id number] Visit ([facility]) NITO COPEIS ([id number]) 1995 F Date Time Provider Department 05/01/23 10:30 AM JIHAN DOWNS [facility] During your visit today, we recorded the following information about you: Blood pressure Weight Height Last Period 148/64 64.9 kg 1.575 m 04/22/23 Jihan Downs APRN.SUPERVISOR [employer] 05/09/2023 11:46 AM Signed Juhi Cope is a 28 year old female who presents for problem visit for pain HPI: Pain is week before period and week of period. Worse on her period for every day she's bleeding Urinary - No symptoms GI - Always constipated. No meds Alva - painful always Pain is on left [...] L0 SAB0 IAB0 Ectopic0 Multiple0 Live Births0 [employer] History LMP: 03/26/2023 (Approximate), Having periods Age at Menarche: Age at First : Age at Menopause: [employer] History Comments: Sexual Activity: Never; No partner [...] physical therapy - or can go locally pelvicLe Cicogneab.TextRecruit Trial flexeril at bedtime Can consider Baclofen [...] physical therapy - or can go locally pelvicLe Cicogneab.TextRecruit Trial flexeril at bedtime Can consider Baclofen suppositories - let me know if you want to trial after you go to PT Contin (more content not included)...NormalFirelands Regional Medical Center South CampusCHEMISTRY Ordered By: SYSTEM SYSTEM on 70-73-7709Onyaprd [Mass/Vol]4.3 g/dLNormal3.3 - 5.0 gm/dLFT RemisolAlbumin/Globulin [Mass [...] [Mass/Vol]8.8 mg/dLLow8.9 - 11.1 mg/dLFTMC RemisolChloride [Moles/Vol]100 mmol/ZKxn520 - 111 mmol/LFTMC RemisolCO2 [Moles/Vol]24 mmol/L Rcoabm69 - 31 mmol/LFTMC RemisolCreatinine [Mass/Vol]1.0 mg/dLNormal0.5 - 1.3 mg/dLFTMC RemisolGFR/1.73 sq M.predicted among blacks MDRD (S/P/Bld) [Vol rate/Area]mL/min/1.73 w0Xesupm>=59mL/min/1.73 m2FT[facility] Chem SGFR/1.73 sq M.predicted among non-blacks MDRD (S/P/Bld) [Vol rate/Area]mL/min/1.73 u2Djbdkr >=59mL/min/1.73 m2FT[facility] Chem SGlobulin (S) [Mass/Vol]3.6 g/dLNormal1.4 - 4.0 gm/dLFTMC RemisolGlucose [Mass/Vol]104 mg/rDGpepds41 - 199 mg/dLFTMC Remisol Potassium [Moles/Vol]3.6 mmol/LNormal3.5 - 5.3 mmol/LFTMC RemisolProtein [Mass/Vol]7.9 g/dLHigh6.0 - 7.8 gm/dLFTMC RemisolSodium [Moles/Vol]134 mmol/LLow 135 - 145 mmol/LFTMC RemisolUrea nitrogen [Mass/Vol]10 mg/dLNormal5 - 21 mg/dL FT[facility] RemisolUrea nitrogen/Creatinine [Mass ratio]10 mg/bxHptbxe26 - 20FTMC RemisolHEMATOLOGYOrdered By: Amairani Jenkins on 53-71-5386Cwkxqfsoxtfx Ql (Bld) Present (01/31/23 2:10 PM)NormalFTMC HemeManSSErythrocyte [...] fLNormal6.4 - 10.8 fLFTMC HemeAutoSSPlatelets (Bld) [#/Vol]471.0 E9/QRlcood046.0 - 500.0 E9/LFTMC HemeAutoSSRBC (Bld) [#/Vol]4.3 E12/LNormal4.3 [...] - 0.5 E9/L [facility] HemeAutoSSLymphocytes/100 WBC (Bld)31.7 %Eocmkb86.0 - 50.0 %[facility] HemeAutoSS Lymphocytes/Leukocytes Auto (Bld) [Pure # fraction]2.4 E9/LNormal1.0 - 4.0 E9/L [facility] HemeAutoSSMonocytes/100 WBC (Bld)9.1 %Normal4.0 - 14.0 %[facility] HemeAutoSS Monocytes/Leukocytes Auto (Bld) [Pure # fraction]0.7 E9/LNormal0.2 - 1.0 E9/L [facility] HemeAutoSSNeutrophils/100 WBC (Bld)57.4 %Ongadt59.0 - 75.0 %[facility] HemeAutoSS Neutrophils/Leukocytes Auto (Bld) [Pure # fraction]4.3 E9/LNormal2.0 - 7.5 E9/L [facility] HemeAutoSSSEROLOGYOrdered By: Patricia Newton on 27-96-2483GQD.beta subunit (U) [Moles/Vol]NegativeNormalFT Man SeroURINALYSISOrdered By: Solomon Leal on 81-66-6871Nnrlycjbf Ql (U)Negative (01/31/23 1:57 PM)NormalNegativeFTMC UA Auto SSClarity (U)Clear (01/31/23 1:57 PM)NormalClearFTMC UA Auto SSColor (U)Yellow (01/31/23 1:57 PM)NormalYellowFTMC UA Auto SSEpithelial cells.squamous LM.HPF (Urine sed) [#/Area]3-4 /HPFNormal0-2/HPFFTMC UA Auto SSGlucose Test strip (U) [Mass/Vol]Negative (01/31/23 1:57 PM)NormalNegativeFT UA Auto SSHemoglobin Ql (U)Negative (01/31/23 1:57 PM)NormalNegativeFTMC UA Auto SSKetones (U) [Mass/Vol]Negative (01/31/23 1:57 PM)NormalNegativeFT UA Auto SSLithium.plasma/[place].RBC (Bld) [Mass ratio]0-3 /HPFNormal0-3/HPFFTMC UA Auto SSNitrite Ql (U)Negative (01/31/23 1:57 PM)NormalNegativeNOR[facility] UA Auto SSpH (U)6.0 *NA* (01/31/23 1:57 PM)Invalid Interpretation Code5.0 - 9.0[facility] UA Auto SSProtein (U) [Mass/Vol]Negative (01/31/23 1:57 PM)NormalNegativeNOR[facility] UA Auto SSSpecific gravity (U) [Rel density] 1.010 *NA* (01/31/23 1:57 PM)Invalid Interpretation Code1.005 - 1.030[facility] UA Auto SSUA Spec DescClean Catch (01/31/23 1:57 PM)NormalNORTHWEST [facility] UA Auto SSUrobilinogen Qn (U)0.0333566 {Aspen'U}/dL Normal0.0 - 1.0 EU/dLNORTHWEST CENTER FOR [facility] UA Auto SSWBC Auto Ql (U)Negative (01/31/23 1:57 PM)NormalNegativeNOR[facility] UA Auto SSWBC LM.HPF (Urine sed) [#/Area]0-5 /HPFNormal0-5/HPFNORTHWEST [facility] UA Auto SSBLOOD BANKOrdered By: Teena Quiroz on 43-11-8618BSU/Rh InterpPositiveInvalid Interpretation CodeNORTHWEST [facility] BB SubsectionABSC Gel InterpNegative (12/30/22 11:28 AM)NormalNORTHWEST [facility] BB SubsectionCHEMISTRYOrdered By: SYSTEM SYSTEM on 24-00-9580Ebysl gap [Moles/Vol]12 mmol/LNormal6 - 16 mEq/LFTMC RemisolCalcium [Mass/Vol]8.6 mg/dLLow8.9 - 11.1 mg/dLFTMC RemisolChloride [Moles/Vol]103 mmol/L Sklqzl596 - 111 mmol/LFTMC RemisolCO2 [Moles/Vol]26 mmol/XZcegzc28 - 31 mmol/L [facility] RemisolCreatinine [Mass/Vol]0.9 mg/dLNormal0.5 - 1.3 mg/dLFTMC Remisol GFR/1.73 sq M.predicted among blacks MDRD (S/P/Bld) [Vol rate/Area]mL/min/1.73 a3Guisrb>=59mL/min/1.73 m2FT Chem SGFR/1.73 sq M.predicted among non-blacks MDRD (S/P/Bld) [Vol rate/Area]mL/min/1.73 x0Youodq>=59mL/min/1.73 m2FT Chem S Glucose [Mass/Vol]105 mg/sETatvrq61 - 199 mg/dLFTMC RemisolPotassium [Moles/Vol] 3.8 mmol/LNormal3.5 - 5.3 mmol/LFTMC RemisolSodium [Moles/Vol]137 mmol/LNormal 135 - 145 mmol/LFTMC RemisolUrea nitrogen [Mass/Vol]17 mg/dLNormal5 - 21 mg/dL [facility] RemisolUrea nitrogen/Creatinine [Mass ratio]19 mg/gbCmvifw12 - 20FTMC RemisolCOAGULATIONOrdered By: Courtney Tang on 60-06-8419yEKG Coag (PPP) [Time]31.5 uRarzfu35.1 - 36.5 second(s)[facility] Auto CoagINR Coag (PPP) [Relative time]1.0 {INR}Invalid Interpretation CodeFTMC Auto CoagPT Coag (PPP) [Time]11.7 sNormal 9.4 - 12.5 second(s)[facility] Auto CoagHEMATOLOGYOrdered By: SYSTEM SYSTEM on 01-70-4845Ujjezlfwi/100 WBC (Bld)1.2 %Normal0.0 - 2.0 %[facility] HemeAutoSS Basophils/Leukocytes Auto (Bld) [Pure # fraction]0.1 E9/LNormal0.0 - 0.2 E9/L [facility] HemeAutoSSEosinophils/100 WBC (Bld)4.1 %Normal0.0 - 8.0 %[facility] HemeAutoSS Eosinophils/Leukocytes Auto (Bld) [Pure # fraction]0.2 E9/LNormal0.0 - 0.5 E9/L [facility] HemeAutoSSLymphocytes/100 WBC (Bld)40.5 %Xhhfie87.0 - 50.0 %[facility] HemeAutoSS Lymphocytes/Leukocytes Auto (Bld) [Pure # fraction]2.3 E9/LNormal1.0 - 4.0 E9/L [facility] HemeAutoSSMonocytes/100 WBC (Bld)7.6 %Normal4.0 - 14.0 %[facility] HemeAutoSS Monocytes/Leukocytes Auto (Bld) [Pure # fraction]0.4 E9/LNormal0.2 - 1.0 E9/L [facility] HemeAutoSSNeutrophils/100 WBC (Bld)46.6 %Wlsdhz19.0 - 75.0 %[facility] HemeAutoSS Neutrophils/Leukocytes Auto (Bld) [Pure # fraction]2.6 E9/LNormal2.0 - 7.5 E9/L [facility] HemeAutoSSHEMATOLOGYOrdered By: Courtney Case on 70-21-2461Tceulshqzlp distribution width (RBC) [Ratio]14.1 %Chaxra94.9 - 14.2 %[facility] HemeAutoSS Hematocrit (Bld) [Volume fraction]31.5 %Low34.0 - 46.0 %[facility] HemeAutoSS Hemoglobin (Bld) [Mass/Vol]10.0 g/dLLow12.0 - 16.0 gm/dLFTMC HemeAutoSSMCH (RBC) [Entitic mass]25.3 pgLow27.0 - 34.0 pgFTMC HemeAutoSSMCHC (RBC) [Mass/Vol]31.8 g/jMAnyozc05.4 - 36.0 gm/dLFTMC HemeAutoSSMCV (RBC) [Entitic vol]79.6 fLLow80.0 - 100.0 fLFTMC HemeAutoSSPlatelet mean volume (Bld) [Entitic vol]7.7 fLNormal6.4 - 10.8 fLFTMC HemeAutoSSPlatelets (Bld) [#/Vol]264.0 E9/FCpqifb574.0 - 500.0 E9/LFTMC HemeAutoSSRBC (Bld) [#/Vol]4.0 E12/LLow4.3 - 5.9 E12/LFTMC HemeAutoSS WBC corrected for nucl RBC Auto (Bld) [#/Vol]5.7 E9/LNormal4.0 - 11.0 E9/LFTMC HemeAutoSSURINALYSISOrdered By: Courtney Case on 43-08-8219Xvhkldin LM Ql (Urine sed)Trace /HPFNormalTrace/HPFFTMC UA Auto SSBilirubin Ql (U)Negative (12/30/22 8:53 AM)NormalNegativeNOR[facility] UA Auto SSClarity (U)Clear (12/30/22 8:53 AM)NormalClearFCREEK N[facility] UA Auto SSColor (U)Yellow (12/30/22 8:53 AM)NormalYellowNORTHWEST [facility] UA Auto SSEpithelial cells.squamous LM.HPF (Urine sed) [#/Area]0-2 /HPFNormal0-2/HPFNORTHWEST [facility] UA Auto SSGlucose Test strip (U) [Mass/Vol]Negative (12/30/22 8:53 AM)NormalNegativeNOR[facility] UA Auto SSHemoglobin Ql (U)2+ *ABN* (12/30/22 8:53 AM)Invalid Interpretation CodeNegativeNOR[facility] UA Auto SSKetones (U) [Mass/Vol]Negative (12/30/22 8:53 AM)NormalNegativeNOR[facility] UA Auto SSLithium.plasma/[place].RBC (Bld) [Mass ratio]4-20 /HPFNormal0-3/HPFNORTHWEST C[facility] UA Auto SSNitrite Ql (U)Negative (12/30/22 8:53 AM)NormalNegativeNOR[facility] UA Auto SSpH (U)6.0 *NA* (12/30/22 8:53 AM)Invalid Interpretation Code5.0 - 9.0[facility] UA Auto SSProtein (U) [Mass/Vol]Negative (12/30/22 8:53 AM)NormalNegativeNORTH[facility] UA Auto SSSpecific gravity (U) [Rel density] 1.025 *NA* (12/30/22 8:53 AM)Invalid Interpretation Code1.005 - 1.030[facility] UA Auto SSUA Spec DescClean Catch (12/30/22 8:53 AM)NormalNORTHWEST [facility] UA Auto SSUrobilinogen Qn (U)0.0699964 {Aspen'U}/dL Normal0.0 - 1.0 EU/dLNORTHWEST CENTER FOR [facility] UA Auto SSWBC Auto Ql (U)Negative (12/30/22 8:53 AM)NormalNegativeNOR[facility] UA Auto SSWBC LM.HPF (Urine sed) [#/Area]0-5 /HPFNormal0-5/HPFNORTHWEST [facility] UA Auto SSOffice Visiton 67-60-8699Wgvgbv-up [id number] Juhi Cope 1995 F Date Provider Department Center 12/05/2022 [id number], [facility] W[facility] None Chart Close Cosign Required by: Opal Ross MD[VARUND] No family history on file Level of Service:99655 RI OFFICE/OUTPATIENT ESTABLISHED LOW MDM 20-29 MIN (GE,GC) Reason for Visit and Comments: Blood Pressure Check [299][facility] SHSProgress Noteon 93-95-4146Dohtcmjz Note Attestation signed by Opal Ross MD at 12/05/2022 3:19 PM [facility]: This patient was seen in the Women's [...] about 4 weeks (around 01/02/2023) for Visit .[facility] SHSProgress NoteVital signs BP 127/87 Weight 149.2lb Pulse 106 Temp 96.7NoSan[facility] SHSProgress Noteon 33-72-4092Pqqlazyu Note Late entry due to patient care. Resident Lacy notified of B.P 138/96 heart rate 119 around 1236 see flowsheet. Also notified checked in 1 hour via orders and B.P 143/87 pulse 111. Clarified if should check in 1 hour according to orders. . Also notified patient has discharge order in. Resident Lacy states No on rechecking. Ok to discharge. Will make patient aware.[facility] SHSProgress NotePOSTPARTUM VAGINAL DELIVERY POST DAY [...] Name: DO Vanessa Zambrano DO 12/02/2022, 5:09 [facility]42on 19-37-81634823.5mm flanges given to patient. Encouraged her to call for observation of pump session and smaller flanges. Martha in NICU to assist with personal pump.[facility] CenterCARECOORDon 08-25-8295QSPWPJEOX89 year old admitted for induction of labor [...] to home. Denies any concerns at this time.[facility] SHSProgress Noteon 81-03-8851Jrdhpods Note NOTE - VAGINAL DELIVERY POST DAY [...] with more than 50% of the total flbx-ya-ymug time of the visit in counseling/coordination of care. , 9:22 [facility] MRP36je 56-51-659736Datlf given to patient and educated how to use and to bring to [facility] NWV61Njrbtl pump use indicated for this pt. 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 Bowden; Dr. Kramer Information: Information for the patient's : Francie Cope [[id number]] Information for the patient's : Francie Cope [[id number]] Description: normal Meconium Noted: No Anesthesia: epidural [...] for: RUBELLAIGG Irina Kramer, DO 11/30/2022, 4:04 AMNVeteran's [facility] SHSProgress Noteon 95-65-2911Phkqgssi NoteFoley catheter inserted by Andi Bacon RN, catheter drained and emptied for 900cc. Catheter secured to leg.[facility] SHSProgress NotePatient up to bathroom but remains unable to void. Bladder scan completed and reads >570. Sent secure message to Dr. Ruiz letting her know the above. Instructed to place chauhan catheter.[facility] PlazaProgress Note Secure message sent to Dr. Gamez stating patient is having difficulty voiding, patient's perineum is very swollen, and that patient was straight cathed for 950ml at noon. Received order for benadryl to help with swelling. [facility] PlazaProess NoteNutrition rescreen completed. Chart reviewed. Patient to be monitored and followed by the diet biometrics technician. Suad Samuels, DTStrong Memorial Hospital SHSProgress NotePatient unable to void, last straight cathed at 0400. Bladder scan obtained for >928 ml, fundus +2 and shifted to right. Patient straight cathed on attempt x2 by Andi Bacon RN for 950cc. Will continue to monitor.[facility] SHSCAREPLNon 07-02-5807ERNZRUXBhv patient will continue to make cervical change. Clotilde Mg, RNNoSanford Medical Center Bismarck SHSLaboratory - Hematology and Cell countsOrdered By: Lucrecia Cervantes on 79-73-2694Lhhpagoyp (Bld) [#/Vol]386 10*3/uL140 - 440 10*3/uLSupaulding county hospital HealthPlatelets (Bld) [#/Vol]Ordered By: Lucrecia Cervantes on 25-21-1679Vagfbyyfijznul and review of laboratory resultsNormal [facility]. agalactiae DNA TENA+probe Ql (Unsp spec)on 11-29-2022 Group B Strep ScreenNot detectedNot [facility] HealthInterpretation and review of laboratory resultsNoCleveland Clinic Medina HospitalMethodology: real-time PCRSUnityPoint Health-Trinity MuscatineABO and Rh group Confirm Nom (Bld)on [id number] group Nom (Bld)OSumma HealthD Ag Ql (RBC)PositiveSumAdena Pike Medical Center HealthBlood type and Crossmatch panel (Bld)on 54-25-4628HGB group Nom (Bld)OSumma HealthBlood group antibody screen GEL QlNegativeSumma HealthD Ag Ql (RBC)PositiveSumdc Healthmma HealthCBC panel Auto (Bld)Ordered By: Lauren Ayers on 60-09-4052Svdzmkmoxvb distribution width (RBC) [Ratio]13.3 %11.5 - 14.5 %[facility] Centera HealthHematocrit (Bld) [Volume fraction]33.8 %Low35.0 - 47.0 %[facility] HealthHemoglobin (Bld) [Mass/Vol] 11.2 g/dLLow11.7 - 16.0 g/dLSumma HealthInterpretation and review of laboratory resultsAbnormalSBrown Memorial HospitalH (RBC) [Entitic mass]28.0 pg26.0 - 34.0 pgSBrown Memorial HospitalHC (RBC) [Mass/Vol]33.1 %32.0 - 36.0 %[facility] Centera HealthMCV (RBC) [Entitic vol]84.4 fL80.0 - 98.0 fLSumma HealthPlatelet mean volume (Bld) [Entitic vol]8.3 fL7.4 - 12.4 fLSumma HealthPlatelets (Bld) [#/Vol]319 10*3/uL140 - 440 10*3/uL [facility] HealthRBC (Bld) [#/Vol]4.00 10*6/uL3.8 - 5.20 10*6/uLSumma HealthWBC (Bld) [#/Vol]18.9 10*3/uLHigh3.6 - 10.7 10*3/uLSumma HealthMercy Memorial Hospital HealthComprehensive metabolic 1998 panelon 36-64-3779Gbqsban [Mass/Vol]3.9 g/dL3.5 - 5.0 g/dLSumma HealthALP [Catalytic [...] HealthGFR/1.73 sq M.predicted MDRD (S/P/Bld) [Vol rate/Area]- [facility] CenterComment on above: Calculation based on the Chronic Kidney Disease Epidemiology Collaboration (CKD- EPI) equation refitwithout adjustment for raceGlucose [Mass/Vol]158 mg/yZOthi27 - 100 mg/dLSumma HealthInterpretation and review of laboratory resultsAbnormal [facility] HealthPotassium [Moles/Vol]4.1 mmol/L3.5 - 5.1 mmol/LSumma HealthProtein [Mass/Vol]7.5 g/dL6.3 - 8.2 g/dLSumma HealthSodium [Moles/Vol]133 mmol/WAdd880 - 145 mmol/LSumma HealthUrea nitrogen [Mass/Vol]5 mg/dLLow7 - 17 mg/dLSumma HealthSumma HealthLaboratory - Hematology and Cell countsOrdered By: Shruthi Fontana on 46-71-0916Hmpztgekf (Bld) [#/Vol]335 10*3/uL140 - 440 10*3/uLSumma HealthPlatelets (Bld) [#/Vol]Ordered By: Shruthi Fontana on 11-28-2022 Interpretation and review of laboratory resultsNormMercy Health [facility]rbana Hospital Health CHEMISTRYOrdered By: CellVir on 51-90-3361Mycy T4 index Calc [Mass/Vol] 5.98 ng/dLNormal5.90 - [...] Code0.1 - 0.9 mg/dL FT RemisolChloride [Moles/Vol]102 mmol/FWxxpko608 - 111 mmol/LFTMC RemisolCO2 [Moles/Vol]18 mmol/LLow21 - 31 mmol/LFTMC RemisolCreatinine [Mass/Vol]0.6 mg/dL Normal0.5 - 1.3 mg/dLFTMC RemisolGFR/1.73 sq M.predicted among blacks MDRD (S/P/Bld) [Vol rate/Area]mL/min/1.73 n4Tnbdhx>=59mL/min/1.73 m2FT[facility] Chem S GFR/1.73 sq M.predicted among non-blacks MDRD (S/P/Bld) [Vol rate/Area] mL/min/1.73 t6Nckqey>=59mL/min/1.73 m2[facility] Chem SGlobulin (S) [Mass/Vol]4.0 g/dL Normal1.4 - 4.0 gm/dLNORTHWEST CENTER [facility] RemisolPotassium [Moles/Vol]3.7 mmol/LNormal3.5 - 5.3 mmol/LFTMC RemisolProtein [Mass/Vol]7.1 g/dLNormal6.0 - 7.8 gm/dLNORTHWEST CENTER [facility] Remisol Sodium [Moles/Vol]132 mmol/DGur600 - 145 mmol/LFTMC RemisolUrate [Mass/Vol]4.9 mg/dLNormal2.2 - 7.4 mg/dLNORTHWEST CENTER [facility] RemisolUrea nitrogen [Mass/Vol]7 mg/dLNormal5 - 21 mg/dLNORTHWEST CENTER FOR [facility] RemisolCOAGULATIONOrdered By: Amairani Jenkins on 09-04-8033sFKI Coag (PPP) [Time]25.3 tBlfsdd06.1 - 36.5 second(s)[facility] Auto Coag Fibrin+Fibrinogen fragments (S) [Mass/Vol]>10 and <40 *ABN* (11/27/22 3:14 PM)Invalid Interpretation Code<10[facility] Man SeroFibrinogen Coag (PPP) [Mass/Vol]539 mg/sJNdqw877 - 393 mg/dLNORTHWEST CENTER FOR [facility] Auto CoagINR Coag (PPP) [Relative time]0.9 {INR}Invalid Interpretation CodeNORTHWEST CENTER FOR BE[facility] Auto CoagPT Coag (PPP) [Time]10.1 sNormal9.4 - 12.5 second(s)[facility] Auto CoagHEMATOLOGYOrdered By: Raquel Arteaga on 07-81-9926Vbnlwhyuydr distribution width (RBC) [Ratio]12.9 %Xccldm48.9 - 14.2 % [facility] HemeAutoSSHematocrit (Bld) [Volume fraction]34.2 %Hysnxk47.0 - 46.0 %[facility] HemeAutoSSHemoglobin (Bld) [Mass/Vol]11.0 g/dLLow12.0 - 16.0 gm/dLNORTHWEST CENTER [facility] HemeAutoSSMCH (RBC) [Entitic mass]27.3 znClxplv78.0 - 34.0 pgFTMC HemeAutoSSMCHC (RBC) [Mass/Vol]32.3 g/vVMilcya72.4 - 36.0 gm/dLFT HemeAutoSSMCV (RBC) [Entitic vol]84.6 uTUrxzby63.0 - 100.0 fLFT HemeAutoSSPlatelet mean volume (Bld) [Entitic vol]8.2 fLNormal6.4 - 10.8 fLFT HemeAutoSSPlatelets (Bld) [#/Vol]273.0 E9/HKnqkad630.0 - 500.0 E9/LFC HemeAutoSSRBC (Bld) [#/Vol]4.0 E12/LLow4.3 - 5.9 E12/LFCREEK NATION [facility] HemeAutoSSWBC corrected for nucl RBC Auto (Bld) [#/Vol]15.7 E9/LHigh4.0 - 11.0 E9/LFC HemeAutoSSComment on above:Result Comment: Slide reviewed by ts Unable to obtain accurate platelet count due to platelet clumping. Platelet count estimate appears normal on slide..URINALYSISOrdered By: Amairnai Jenkins on 80-27-6940Jwkuqoldg Ql (U)Negative (11/27/22 1:55 PM)NormalNegativeNOR[facility] UA Auto SSClarity (U)Clear (11/27/22 1:55 PM)NormalClearFCREEK NATION COMMUNITY [facility] UA Auto SSColor (U)Yellow (11/27/22 1:55 PM)NormalYellowFT UA Auto SSEpithelial cells.squamous LM.HPF (Urine sed) [#/Area]3-4 /HPFNormal0-2/HPFFTMC UA Auto SSGlucose Test strip (U) [Mass/Vol]Negative (11/27/22 1:55 PM)NormalNegativeNOR[facility] UA Auto SSHemoglobin Ql (U)1+ *ABN* (11/27/22 1:55 PM)Invalid Interpretation CodeNegativeFT UA Auto SSKetones (U) [Mass/Vol]Negative (11/27/22 1:55 PM)NormalNegativeNOR[facility] UA Auto SSLithium.plasma/[place].RBC (Bld) [Mass ratio]4-20 /HPFNormal0-3/HPFNORTHWEST [facility] UA Auto SSNitrite Ql (U)Negative (11/27/22 1:55 PM)NormalNegativeNOR[facility] UA Auto SSpH (U)6.5 *NA* (11/27/22 1:55 PM)Invalid Interpretation Code5.0 - 9.0[facility] UA Auto SSProtein (U) [Mass/Vol]Negative (11/27/22 1:55 PM)NormalNegativeNOR[facility] UA Auto SSSpecific gravity (U) [Rel density] 1.010 *NA* (11/27/22 1:55 PM)Invalid Interpretation Code1.005 - 1.030[facility] UA Auto SSUA Spec DescClean Catch (11/27/22 1:55 PM)NormalNORTHWEST [facility]ENTER FOR [facility] UA Auto SSUrobilinogen Qn (U)0.9798850 {Aspen'U}/dL Normal0.0 - 1.0 EU/dLNORTHWEST C[facility] [place] UA Auto SSWBC Auto Ql (U)Negative (11/27/22 1:55 PM)NormalNegativeNORTHWEST [facility] [place] UA Auto SSWBC LM.HPF (Urine sed) [#/Area]0-5 /HPFNormal0-5/HPFNORTHWEST C[facility] [place] UA Auto SSCHEMISTRYOrdered By: SYSTEM SYSTEM on 07-14-2022 Albumin [Mass/Vol]3.6 g/dLNormal3.3 - 5.0 gm/dLNORTHWEST [facility] [place] RemisolAlbumin/Globulin [Mass ratio]1.1 {ratio}Normal1.1 - 2.2[facility] RemisolALP [Catalytic activity/Vol]41 [iU]/yCijdfx53 - 98 Int._Unit/LFT[facility] RemisolALT No additional P-5'-P [Catalytic activity/Vol]19 [iU]/dNormal6 - 46 Int._Unit/LFT[facility] RemisolAnion gap [Moles/Vol] 11 mmol/LNormal6 - 16 mEq/L[facility] RemisolAST [Catalytic activity/Vol]21 [iU]/d Normal5 - 43 Int._Unit/L[facility] RemisolBilirubin [Mass/Vol]0.7 mg/dLNormal0.0 - 1.1 mg/dLNORTHWEST [facility] [place] RemisolBilirubin.direct [Mass/Vol]0.1 mg/dLNormal0.1 - 0.4 mg/dLFT[facility] RemisolBilirubin.indirect [Mass or moles/Vol]0.6 mg/dLNormal0.1 - 0.9 mg/dLFT[facility] RemisolCalcium [Mass/Vol]8.9 mg/dLNormal8.9 - 11.1 mg/dLFT[facility] RemisolChloride [Moles/Vol]107 mmol/YFrzzce978 - 111 mmol/LFT[facility] RemisolCO2 [Moles/Vol]22 mmol/L Ykivvl97 - 31 mmol/LFT[facility] RemisolCreatinine [Mass/Vol]0.6 mg/dLNormal0.5 - 1.3 mg/dLFT[facility] RemisolGFR/1.73 sq M.predicted among blacks MDRD (S/P/Bld) [Vol rate/Area]mL/min/1.73 a6Uiwmvj>=59mL/min/1.73 m2[facility] Chem SGFR/1.73 sq M.predicted among non-blacks MDRD (S/P/Bld) [Vol rate/Area]mL/min/1.73 e6Ikjtog >=59mL/min/1.73 m2[facility] Chem SGlobulin (S) [Mass/Vol]3.3 g/dLNormal1.4 - 4.0 gm/dLFT[facility] RemisolGlucose [Mass/Vol]99 mg/cLJmaezq11 - 199 mg/dLFT[facility] Remisol Potassium [Moles/Vol]3.5 mmol/LNormal3.5 - 5.3 mmol/LFT[facility] RemisolProtein [Mass/Vol]6.9 g/dLNormal6.0 - 7.8 gm/dLFT[facility] RemisolSodium [Moles/Vol]136 mmol/L Jtintp384 - 145 mmol/LFT[facility] RemisolUrea nitrogen [Mass/Vol]8 mg/dLNormal5 - 21 mg/dLFT[facility] RemisolUrea nitrogen/Creatinine [Mass ratio]13 mg/voBfmdft67 - 20[facility] RemisolHEMATOLOGYOrdered By: SYSTEM SYSTEM on [id number]/100 WBC (Bld) 0.3 %Normal0.0 - 2.0 %[facility] [...] 7.5 E9/LFT[facility] HemeAutoSSHEMATOLOGYOrdered By: Teena Quiroz on [id number] distribution width (RBC) [Ratio]12.9 %Normal 10.9 - 14.2 %[facility] HemeAutoSSHematocrit (Bld) [Volume fraction]33.6 %Low34.0 - 46.0 %[facility] HemeAutoSSHemoglobin (Bld) [Mass/Vol]11.5 g/dLLow12.0 - 16.0 gm/dL [facility] HemeAutoSSMCH (RBC) [Entitic mass]28.5 gtVwuwfj66.0 - 34.0 pgFTMC HemeAutoSSMCHC (RBC) [Mass/Vol]34.1 g/sFZmuuub96.4 - 36.0 gm/dLFTMC HemeAutoSS MCV (RBC) [Entitic vol]83.5 nYUagjml76.0 - 100.0 fLFTMC HemeAutoSSPlatelet mean volume (Bld) [Entitic vol]8.1 fLNormal6.4 - 10.8 fLNORTHWE[facility] HemeAutoSSPlatelets (Bld) [#/Vol]271.0 E9/NYukfwm139.0 - 500.0 E9/[facility] HemeAutoSSRBC (Bld) [#/Vol] 4.0 E12/LLow4.3 - 5.9 E12/[facility] HemeAutoSSWBC corrected for nucl RBC Auto (Bld) [#/Vol]13.9 E9/LHigh4.0 - 11.0 E9/[facility] HemeAutoSSURINALYSISOrdered By: Deirdre Gilliam on 47-34-1048Kwphzcjw LM Ql (Urine sed)Trace /HPFNormalTrace/HPFNORTHWEST [facility] UA Auto SSBilirubin Ql (U)Negative (07/14/22 5:00 AM)NormalNegativeNORTHWEST [facility] UA Auto SSClarity (U)Clear (07/14/22 5:00 AM)NormalClearFCREEK NATION [facility] UA Auto SSColor (U)Yellow (07/14/22 5:00 AM)NormalYellowNORTHWEST CENTER [facility] UA Auto SSEpithelial cells.squamous LM.HPF (Urine sed) [#/Area]3-4 /HPFNormal0-2/HPFNORTHWEST [facility] UA Auto SSGlucose Test strip (U) [Mass/Vol]Negative (07/14/22 5:00 AM)NormalNegativeNORTHWEST [facility] UA Auto SSHemoglobin Ql (U)Trace *ABN* (07/14/22 5:00 AM)Invalid Interpretation CodeNegativeNORTHWEST [facility] UA Auto SSKetones (U) [Mass/Vol]Negative (07/14/22 5:00 AM)NormalNegativeNORTHWEST [facility] UA Auto SSLithium.plasma/[place].RBC (Bld) [Mass ratio]0-3 /HPFNormal0-3/HPFNORTHWEST C[facility] UA Auto SSMucus Ql (Urine sed)Trace (07/14/22 5:00 AM)NormalNORTHWEST C[facility] UA Auto SSNitrite Ql (U)Negative (07/14/22 5:00 AM)NormalNegativeNORTHWEST [facility] UA Auto SSpH (U)6.0 *NA* (07/14/22 5:00 AM)Invalid Interpretation Code5.0 - 9.0[facility] UA Auto SSProtein (U) [Mass/Vol]Negative (07/14/22 5:00 AM)NormalNegativeNORTHWEST [facility] UA Auto SSSpecific gravity (U) [Rel density] 1.020 *NA* (07/14/22 5:00 AM)Invalid Interpretation Code1.005 - 1.030[facility] UA Auto SSUA Spec DescClean Catch (07/14/22 5:00 AM)NormalNORTHWEST C[facility] FOR [facility] UA Auto SSUrobilinogen Qn (U)0.5767567 {Aspen'U}/dLNormal0.0 - 1.0 EU/dLNORTHWEST CENTER FOR [facility] UA Auto SSWBC Auto Ql (U)Negative (07/14/22 5:00 AM)NormalNegativeNORTHWEST [facility] UA Auto SSWBC LM.HPF (Urine sed) [#/Area]0-5 /HPFNormal0-5/HPFNORTHWEST CENTER [facility] UA Auto SSCHEMISTRYOrdered By: SYSTEM SYSTEM on 90-20-1080Rtgnkfg [Mass/Vol]4.4 g/dLNormal3.3 - 5.0 gm/dLFTMC Remisol Albumin/Globulin [Mass ratio]1.1 {ratio}Normal1.1 - 2.2FTMC RemisolALP [Catalytic activity/Vol]64 [iU]/jVsayiy25 - 98 Int._Unit/LFTMC RemisolALT No additional P-5'-P [Catalytic activity/Vol]107 [iU]/dHigh6 - 46 Int._Unit/LFTMC RemisolAST [Catalytic activity/Vol]63 [iU]/dHigh5 - 43 Int._Unit/LFTMC Remisol Bilirubin [Mass/Vol]1.5 mg/dLHigh0.0 - 1.1 mg/dLFTMC RemisolBilirubin.direct [Mass/Vol]0.2 mg/dLNormal0.1 - 0.4 mg/dLFTMC RemisolBilirubin.indirect [Mass or moles/Vol]1.3 mg/dLHigh0.1 - 0.9 mg/dLFTMC RemisolCholesterol [Mass/Vol]193 mg/hVGnpzkh401 - 200 mg/dLFTMC RemisolCholesterol in HDL [Mass/Vol]64 mg/dL Invalid Interpretation CodeFTMC RemisolCholesterol in LDL [Mass/Vol]116 mg/dL Normal<=129mg/dLFTMC RemisolCholesterol in VLDL [Mass/Vol]13 mg/dLNormal7 - 40 mg/dLFTMC RemisolGlobulin (S) [Mass/Vol]3.9 g/dLNormal1.4 - 4.0 gm/dLFTMC RemisolProtein [Mass/Vol]8.3 g/dLHigh6.0 - 7.8 gm/dLFTMC RemisolTriglyceride [Mass/Vol]67 mg/dLNormal<=149mg/dLFTMC RemisolCOAGULATIONOrdered By: Courtney Case on 56-18-1691ZEU Coag (PPP) [Relative time]1.0 {INR}Invalid Interpretation Code [facility] Auto CoagPT Coag (PPP) [Time]12.4 qDybpxg16.2 - 12.9 second(s)[facility] Auto CoagHEMATOLOGYOrdered By: SYSTEM SYSTEM on 93-69-0535Tswkvmgjk/100 WBC (Bld)0.7 %Normal0.0 - 2.0 %[facility] HemeAutoSSBasophils/Leukocytes Auto (Bld) [Pure # fraction]0.0 E9/LNormal0.0 - 0.2 E9/LFTMC HemeAutoSSEosinophils/100 WBC (Bld)3.2 %Normal0.0 - 8.0 %[facility] HemeAutoSSEosinophils/Leukocytes Auto (Bld) [Pure # fraction]0.2 E9/LNormal0.0 - 0.5 E9/LFTMC HemeAutoSSLymphocytes/100 WBC (Bld) 31.9 %Iajdfw20.0 - 50.0 %[facility] HemeAutoSSLymphocytes/Leukocytes Auto (Bld) [Pure # fraction]1.9 E9/LNormal1.0 - 4.0 E9/LFTMC HemeAutoSSMonocytes/100 WBC (Bld)9.1 %Normal4.0 - 14.0 %[facility] HemeAutoSSMonocytes/Leukocytes Auto (Bld) [Pure # fraction]0.5 E9/LNormal0.2 - 1.0 E9/LFTMC HemeAutoSSNeutrophils/100 WBC (Bld) 55.1 %Vjmecz50.0 - 75.0 %[facility] HemeAutoSSNeutrophils/Leukocytes Auto (Bld) [Pure # fraction]3.3 E9/LNormal2.0 - 7.5 E9/LFTMC HemeAutoSSHEMATOLOGYOrdered By: Chivo Ward on 56-18-1239Bubfjwfjqvl distribution width (RBC) [Ratio]12.9 % Vsvhct21.9 - 14.2 %[facility] HemeAutoSSHematocrit (Bld) [Volume fraction]40.1 %Normal 34.0 - 46.0 %[facility] HemeAutoSSHemoglobin (Bld) [Mass/Vol]13.2 g/vPDsevhk36.0 - 16.0 gm/dLFTMC HemeAutoSSMCH (RBC) [Entitic mass]27.7 hkZbocva88.0 - 34.0 pgFTMC HemeAutoSSMCHC (RBC) [Mass/Vol]32.8 g/qPBfrtpp06.4 - 36.0 gm/dLFTMC HemeAutoSS MCV (RBC) [Entitic vol]84.3 cOGfeyqq04.0 - 100.0 fLFTMC HemeAutoSSPlatelet mean volume (Bld) [Entitic vol]8.5 fLNormal6.4 - 10.8 fLFTMC HemeAutoSSPlatelets (Bld) [#/Vol]299.0 E9/TFlkual704.0 - 500.0 E9/LFTMC HemeAutoSSRBC (Bld) [#/Vol] 4.8 E12/LNormal4.3 - 5.9 E12/LFTMC HemeAutoSSWBC corrected for nucl RBC Auto (Bld) [#/Vol]5.9 E9/LNormal4.0 - 11.0 E9/LFC HemeAutoSSLMPon 73-06-3695Cqga risk assessmenta) No falls within the last obvbDF-BPDKZ-Qmytki 320 Work Phone: Last menstrual period start gaozxwpzpaMY-JIJPL-Jhyvqp 320 Work Phone: Tobacco use status CPHSb) WjFF-XAENB-Ulefdl 320 Work Phone: OB/QA ENGINEER - Office Visiton 14-72-6953YL/QA ENGINEER - Office VisitDiagnoses/Problems Assessed Endometriosis (617.9) (N80.9) Orders Start: Orilissa 200 MG Oral Tablet; take 1 tablet by mouth twice a day Provider Impressions 26 yo 1. 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 History of Present Yturici5 yo presents as a follow up for [...] again engaged x 1 year working at [employer] [place] Review of Systems Constitutional: no fever, no [...] hours Vitals Vital Signs Recorded: 09Feb2022 11:41AM Gwlsevch404 Menbgefrs53 Height5 ft 2 in Jlugyd759 lb BMI Vvjnmqgyzu54.51 kg/m2 BSA Calculated1.61 Tobacco Useb) No Fall [...] NormalUH TouchworksXR KNEE LEFT (MIN 4 VIEWS)on 24-75-6243SH KNEE LEFT (MIN 4 VIEWS)EXAM: XR KNEE [...] Lopez MD 09/29/21 Final resultNormalMercy Marcin Riverton HospitalOB/QA ENGINEER - Office Visiton 08-16-3180JB/QA ENGINEER - Office VisitDiagnoses/Problems Assessed Anxiety (300.00) (F41.9) Orders Start: FLUoxetine HCl - 20 MG Oral Capsule; TAKE 1 CAPSULE Daily Provider Impressions 26 yo 1. 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 History of Present Miovwwp88 yo with endometriosis was on norethindrone d/c'd [...] Every 6 hours Vitals Vital Signs Recorded: 28Wpe8027 01:19PM Sozmptsw418 Yejsgqkls80 Height5 ft 2 in Zojemb649 lb BMI Zudfxrbcjb35.58 kg/m2 BSA Calculated1.53 Tobacco Useb) No Fall Screeninga) No falls within the last year QVU17Viw3438 Pain Scale0 Signatures Electronically signed by : Charlene Rodriguez DO; Jun 03 2021 10:55AM EST (Author) NormalUH TouchworksChlamydia sp identified Org specific cx Nom (Genital specimen)Ordered By: Jackelyn Dela Cruz on 15-22-2104Lxmvllhi Chlamydia Screen NegativeNegativeSumdc HealthHBV surface Ag IA Qlon 11-53-8088Rnxweztb Hepatitis B Surface AgNegativeNegative, None DetectedSumma HealthHIV 1+2 Ab and HIV1 p24 Ag IA.rapid Nom (S/P/Bld)on 09-43-6338DFA-1/HIV-2 AbNegativeSumma HealthNo Panel Informationon 10-57-1133Dgvtknct Gonorrhea ScreenNegativeNegativeSumma Health External Rubella IGG QuantitationPositiveSumma HealthSumma HealthNo Panel InformationOrdered By: Jackelyn Dela Cruz on 83-19-9906Kniau HealthReagin Ab RPR Ql (S)on 17-44-2225Ndsjcisz RPRNon-ReactiveBorderline, Nonreactive, Weakly Reactive, EquivocalSumma HealthOB/QA ENGINEER - Office Visiton 46-94-3450MP/QA ENGINEER - Office VisitDiagnoses/Problems Assessed Endometriosis (617.9) (N80.9) Never smoker Orders Stop: Norethindrone Acetate 5 MG Oral Tablet Tobacco Use Screening; Status:Complete; Done: 91Qem6517 Provider Impressions 26 yo 1. endometriosis: rx'd norethindrone referral to pelvic floor PT rtc in 3-6 months if continues to have pain, will consider centrally acting neuromodulator Chief Complaint Patient presents today for f/u for endometriosis PAP per patient 2019 WNL Cloth Bin Packer declined -CATY,PAVING RAMMER LMP 04/11/21 History of Present Ksoxkbc26 yo with endometriosis bleeding once per month, [...] DO; Apr 20 2021 11:04AM EST (Author) [facility] TouchworksTobacco Screening.on 45-45-1683Uwsk risk assessmenta) No falls within the last qawwTA-AUIOD-Xekupj 320 Work Phone: Lass menstrual period start zbni27Cyd5088 FP-WBXHS-Dvvvht 320 Work Phone: Tobacco Screening.b) LuGV-PSMPT-Dxgsdl 320 Work Phone: Radiologyon 34-53-8149YJ Kidney - bilateralNormal OB-Dzzitxp-Nqtzxggwu Work Phone: us RENAL BILATon 13-87-8565SY RENAL BILATMRN: [id number] Patient Name: JUHI COPE STUDY: US RENAL BILAT; 04/14/2021 1:14 pm INDICATION: Recurrent UTI. COMPARISON: None. ACCESSION NUMBER(S): [id number] ORDERING CLINICIAN: TERI CHAU TECHNIQUE: Multiple images [...] ultrasound. Electronically signed by: GENEVIEVE CAR STUPIN, MDFairmount Behavioral Health System Office Visit (Urology)on 51-25-3126Qrbxou-up visitDiagnoses/Problems Assessed Recurrent UTI (599.0) (N39.0) Orders Recurrent UTI Start: Nitrofurantoin Monohyd Macro 100 MG Oral Capsule; TAKE 1 CAPSULE Other Please take one capsule after sexual intercourse to prevent UTI Rx By: Teri Chau; Dispense: 30 Days ; #:30 Capsule; Refill: 11;For: Recurrent UTI; ROSY = N; Verified Transmission to [employer] Ultrasound Kidney Bilateral; Status:Hold For - Scheduling; Requested for:14Bxg0663; Perform:[facility]; Due:13Lta8088; Last Updated By:Isela Terrazas; 04/01/2021 9:16:17 AM;Ordered; [...] UTI; ROSY = N; [place] [address] Provider Impressions 26 year old female with [...] [facility] in [place], noting she was only treated with medications [...] NPV - recurrent UTI History of Present Dbwfzid75 year old female with history of endometriosis [...] [facility] in [place], noting she was only treated with medications [...] content not included)...NormalUH TouchworksNM GASTRIC EMPTYING SOLIDon 47-09-1508AV GASTRIC EMPTYING SOLID* * *Final Report* * * DATE OF EXAM: Nov 05 2020 12:26PM [facility] 0017 - NM GASTRIC EMPTYING SOLID [...] 4 HOURS IS CONSISTENT WITH MILD GASTROPARESIS. Potato Chip Processing Supervisor: PSCB Transcribe Date/Time: Nov 05 2020 1:09P Dictated by : SIDDHARTH PEREA MD This examination was interpreted and the report reviewed and electronically signed by: SIDDHARTH PEREA MD on Nov 05 2020 1:24PM EST [id number]_IDCSIACNNMunson Healthcare Charlevoix HospitalANES POSTPROC EVALon 37-82-7868UISW POSTPROC EVALHNO ID: [id number] Author: Austin Story Service: ? Author Type: [...] October 25, 2020 TIME: 2:52 PM CSN: [id number] HospitalANES PRE-OPon 89-22-7148UTNP PRE-OPHNO ID: [id number] Author: Austin Story Service: ? Author Type: [...] October 25, 2020 TIME: 1:08 PM CSN: [id number] Alabama Medical Center PATHOLOGYon 10-25-2020 SURGICAL PATHOLOGYSpecimen originated from [facility] Specimen #: [id number] Submitting Physician: MALCOLM CRUZ MD FINAL DIAGNOSIS [...] in one cassette. Gross examination performed at [facility], [address] [place] [address] 10/25/2020 7:59:40 PM Date of Report: 10/26/2020 Date of Procedure: 10/25/2020 Date of Receipt: 10/25/2020 Submitted by: MALCOLM CRUZ MD Location: AVEN Diagnostic interpretation performed at [facility], [address] [place] [address]. [place] Number: [id number] Clinic Reference LabComment on above:Performed By: #### S #### See report for performing lab information.SURGICAL PATHOLOGYSpecimen originated from [facility] Specimen #: [id number] Submitting Physician: MALCOLM CRUZ MD FINAL DIAGNOSIS [...] in one cassette. Gross examination performed at [facility], [address] [place] [address] EJL 10/25/2020 7:59:40 PM Date of Report: 10/26/2020 Date of Procedure: 10/25/2020 Date of Receipt: 10/25/2020 Submitted by: MALCOLM CRUZ MD Location: AVEN Diagnostic interpretation performed at [facility], [address] [place] [address]. [place] Number: [id number] McDowell [facility]/ GROUP TESTon 87-58-4091CIX Dwight [facility]. Eisenhower VA Medical CenterComment on above: Performed By: #### VERAB #### [facility] [address] [place], [place] [address]ZD TYPEPositiveHealthSouth Rehabilitation Hospital of LafayetteComment on above: Performed By: #### VERAB #### [facility] [address] [place], [place] [address]Jiipe Surgical Pathology Departmenton 33-82-7708Xobot Surgical Pathology DepartmentName JUHI COPE Pathologist: ASHLEY [...] D. Right pelvic sidewall peritoneum are 2 hhsu-sbg-jet, irregular fragments of tissue measuring 1.3 x [...] in toto in one cassette. SB amisha/09/02/2020 [facility] Department of Pathology [address] [place], [place] [address]BhrqvaMXLevine Children's HospitalComment on above:Performed By: #### [facility] #### [facility] Surgical Pathology Department [address] [facility] [address]Zrzbatd and Physical - Surgery > 30 dayson 24-87-9660Xhafxci and Physical - Surgery > 30 daysHistory [...] T&S: O+, COVID-19: negative OB Hx: None. Hamper Maker Machine Hx: As above. PMHx: endometriosis Surg Hx: diagnostic laparoscopy, appendectomy (2016) Meds: Meloxicam, [place]-Linyah, Norethindrone acetate Social Hx: No tobacco, no [...] the note. I personally evaluated the patient [id number] Attending Provider Inpatient Certification StatementObservation patient/other outpatient visits Electronic Signatures: Charlene Rodriguez () (Signed 01-Sep-2020 10:04) Authored: Note Completion Co-Signer: History of Present Illness, Home Medication Review, Impression/Procedure, ERAS, Physical Exam, Consent, Note Completion Chelsie Leal ( (Resident)) (Signed 31-Aug-2020 15:44) Authored: History of Present Illness, Home Medication Review, Impression/Procedure, ERAS, Physical Exam, Consent, Note Completion Last Updated: 01-Sep-2020 10:04 by Charlene Rodriguez ()[facility] of LafayetteHomegoing Instructionson 61-85-3900Iqjacnkal InstructionsAdditional Instructions: Handouts Given: Topic 1Anesthesia Homegoing Instructions Topic 2Surgical Site Infection Handout Topic 3New Medication Education Topic 4Suggamedex handout Electronic Signatures: Aminata Gomez (DIALLO) (Signed 01-Sep-2020 16:07) Authored: Additional Instructions Last Updated: 01-Sep-2020 16:07 by Aminata Gomez (DIALLO)[facility] of LafayettePatient Profile - Preop v2on 74-43-3187Hbcfgjw Profile - Preop a5Troicxi: Initial Info: How to be Addressedalexis Spoken Language PreferredEnglish Are you currently using the Personal Electronic Health Record or [employer] Stated Reason for Admissionseeing if my endometriosis is back Primary Contact Name and Numberlogan [phone] Patient Belongingsclothing locker glasses with bf Medications Brought to Hospitalno General Health: Weight in kg55.6 kilogram(s) Weight in hup241.5 pound(s) Weight Methodactual (measured) Scale Typestanding Height [...] Arrangementshouse Lives Withparent(s) Resource/Environmental Concernsnone Anticipated Transition [employer] Anticipated at Transitionnone Substance: Current or [...] Learning Preferencesverbal instruction Cultural Considerationsnone Developmental Considerationsnone Zoroastrianism Considerationsnone Other learner availableno Falls RiskPatient location auto qualifies him/her for HIGH RISK. Are there any cultural, spiritual, orthodoxy practices/values/needs that are important for us to [...] Physical - Surgery > 30 days 01-Sep-2020 03:42[facility] Hospital of LafayettePreop Checkliston 16-11-3873Ctidv Checklist Preop Checklist: Preop Checklist: Arrival Jwfx85-Nlm-3205 Arrival Time12:30 Procedure Typelaparoscopic endometriosis excision NPO Zancak17-Oop-8891 00:00 ID Band Onyes Allergy Bandno known [...] Last Updated: 01-Sep-2020 12:35 by Sierra Kraft (RN)[facility] Hospital of LafayetteANTIBODY IDENT.on 02-04-5455JBRIJZLQ IDENT.SEE BELOWNormLevine Children's HospitalComment on above:Result Comment: NO CLINICALLY SIGNIFICANT ANTIBODIES IDENTIFIED.Performed By: #### ABID #### [facility] [address] [place], [place] [address]FBWsh 09-14-9212Vbdctkisoah distribution width (RBC) [Ratio] 12.1 %Jmqkgz46.5 - 14.5[facility], Old BridgeComment on above:Performed By: #### CBC #### [facility] [address] [place], [place] [address]Hyltzoohdy (Bld) [Volume fraction]39.6 %Nvloio95.0 - 46.0[facility], Old BridgeComment on above:Performed By: #### CBC #### [facility] [address] [place], [place] [address]Lmmxqizmmt (Bld) [Mass/Vol]12.6 g/vRAzzjzy72.0 - 16.0[facility], Old BridgeComment on above:Performed By: #### CBC #### [address] [id number] (RBC) [Mass/Vol]31.8 g/dLLow32.0 - 36.0[facility], Old BridgeComment on above:Performed By: #### CBC #### [address] [id number] (RBC) [Entitic vol]90 pALbtkzj14 - 100[facility], Old BridgeComment on above:Performed By: #### CBC #### [address] [id number] (Bld) [#/Vol]333 10*3/rJFzaysy951 - 450[facility], Old BridgeComment on above:Performed By: #### CBC #### [address] [id number] x10E12/LNormal4.00 - 5.20[facility] [place] Comment on above:Performed By: #### CBC #### [address] [id number] (Bld) [#/Vol]5.6 10*3/uLNormal4.4 - 11.3[facility], Old BridgeComment on above:Performed By: #### CBC #### [address] [id number] 2019, SCREEN ASYMPTOMATICon 91-75-9655OQPA-CoV-2 (COVID-19) RNA TENA+probe Ql (Unsp spec)Not detectedNormalNot DetectedRaritan Bay Medical Center, Old BridgeComment on above:Result Comment: This assay is designed [...] patient management decisions. Fact sheet for providers: https://www.fda.gov/media/198332/download Fact sheet for patients: https://www.fda.gov/media/745948/download This test has received FDA Emergency Use Authorization (EUA) and has been verified by [facility] ([facility]). This test is only authorized for the duration of time that circumstances exist to justify the authorization of the emergency use of in vitro diagnostic tests for the detection of SARS-CoV-2 virus and/or diagnosis of COVID-19 infection under section 564(b)(1) of the Act, 21 U.S.C. 360bbb-3(b)(1), unless the authorization is terminated or revoked sooner. [facility] is certified under CLIA-88 as qualified to perform high complexity testing. Testing is performed in the [facility] laboratories located at [address] [place] [address].Performed By: #### COVSC #### [place], [place] [address]Lab Specimen SourceNasal, NasopharyngealNoEating Recovery Center Behavioral HealthComment on above:Performed By: #### COVSC #### [place], [place] [address]TYPE + SCREENon 70-54-6990EJL [facility] SURGICAL HOSPITALONoSelect Specialty HospitalComment on above:Performed By: #### T+S #### [facility] [address] [place], [place] [address]CA TYPEPositiveHealthSouth Rehabilitation Hospital of LafayetteComment on above: Performed By: #### T+S #### [facility] [address] [place], [place] [address]GVJ TYPECanceledPipestone County Medical CenterComment on above:Order Comment: TEST TYPE + SCREEN WAS CANCELLED, 08/30/2020 13:37 JOP. Performed By: #### T+S #### [facility] [address] [place], [place] [address]LQ TYPECanceledNormSt. Mary's Medical CenterComment on above:Order Comment: TEST TYPE + SCREEN WAS CANCELLED, 08/30/2020 13:37 JOP. Performed By: #### T+S #### [facility] [place] [address] [place], [place] [address]XHTPgv 96-53-7199WIQCQbqlaxq:Juhi Cope MRN: Height:5' 2 (1.575 m) Weight:120 [...] for the following basenames: K,HCT Progress Notes ([facility] REJ AV4): Jaquelin Wesley Ma [...] 1 10 oz. Bottle of Magnesium Citrate (Lemon/Cahuilla) ? A test for COVID 19 test [...] cooked potatoes; Special K, Rice Krispies or Brightwood Flakes cereals; ripe bananas; melons (except watermelon [...] carbonated beverages such as chi aislinn or lemon-shingle springs soda; Gatorade? or other sports drinks (not [...] If you need to reschedule, please call [phone] ?Date/Provider Dr Cruz Procedure:colonoscpy Facility:[employer] Prep ordered( if aware):miralax Knowledge of prep instructions:posted to [employer] Diabetic:no Blood Thinners:no Pacemaker with defibrillator:no left message for patient to return call. Nurse triage please give below message. PLEASE READ PATIENT INSTRUCTIONS BELOW. THANK YOU.[facility] on 55-02-3389KUWOUNLDWBO ID: [id number] Author: Leon Perkins (Rt) Fito Blanchard Service: Radiology Author Type: Cylinder Inspector Type: Progress Notes Filed: 07/29/2020 11:06 [...] Lourdes HospitalXR ABD 2V SUPINE W UPR/DECUB/CTLon 79-74-0922QK ABD 2V SUPINE W UPR/DECUB/CTL* * *Final [...] structures are normal. No other significant abnormality. Potato Chip Processing Supervisor: DAVID Transcribe Date/Time: Jul 29 2020 11:19A Dictated by : LALI ORNELAS MD This examination was interpreted and the report reviewed and electronically signed by: LALI ORNELAS MD on Jul 29 2020 11:19AM EST [id number]_[facility] Vital Signs Date TimeVital SignValuePerforming FeerbdxjpHfnnxowy51-30-9435 15:04-0500Body mass index (BMI) [Ratio]30.36 kg/j0Fsyhp Kiesha DO Work Phone: [phone] [place], [place] [address]Ztfhfdayyg52-87-9113 15:04-0500Body ohsbjh70.3 kg Nathan Kiesha DO Work Phone: [phone] [address]-05-2025 15:04-0500Diastolic blood mm[Hg]Nathan Kiesha DO Work Phone: [phone] [place], [place] [address]Lusbynsgyd54-21-9212 15:04-0500Systolic blood nnhcqygd311 mm[Hg]Nathan Kiesha DO Work Phone: [phone] [place], [place] [address]10-22-2025 16:04-0400Body mass index (BMI) [Ratio]29.78 kg/o8Xrbcs Kiesha DO Work Phone: [phone] [place], [place] [address]Ztbckzgpgk91-24-9934 16:04-0400Body .85 kgCorey Kiesha DO Work Phone: [phone] [place], [place] [address]Yfmubnklce09-47-9657 16:04-0400Diastolic blood oczrcjvs12 mm[Hg]Nathan Kiesha DO Work Phone: [phone] [place], [place] [address]Dfoqlhjqgk8809 16:04-0400Systolic blood ymkretvc603 mm[Hg]Nathan Kiesha DO Work Phone: [phone] [address]-16-2025 10:34-0400Body mass index (BMI) [Ratio]29.26 kg/u1OndsihebMadhuri Monroy MD Work Phone: pSelect [facility]10-16-2025 10:34-0400Body .58 kgMadhuri Monroy MD Work Phone: [phone] [place], [place] [address]10-16-2025 10:34-0400Diastolic blood inltslnd94 mm[Hg]Madhuri Monroy MD Work Phone: [phone] [place], [place] [address]11[address]10-16-2025 10:34-0400Systolic blood njinfsiy045 mm[Hg]Madhuri Monroy MD Work Phone: [phone] [place], [place] 8114610-10-2025 14:48-0400Body gulikb662.5 cmMine Denise MD Work Phone: [phone] [place], [place] 8114610-10-2025 14:48-0400Body mass index (BMI) [Ratio]29.04 kg/g4HomngjMine Denise MD Work Phone: [phone] [place], [place] 8114610-10-2025 14:48-0400Body asazcr42.03 kgMine Denise MD Work Phone: [phone])[address] [place], [place] 8114610-10-2025 14:48-0400Diastolic blood ihlocosl31 mm[Hg]Mine Denise MD Work Phone: [phone])[address] [place], [place] 8114610-10-2025 14:48-0400Heart rate 104 /minMine Denise MD Work Phone: [phone] [place], [place] 8114610-10-2025 14:48-0400Systolic blood mlahcndq995 mm[Hg]Mine Denise MD Work Phone: [phone] [place], [place] 8114610-09-2025 15:54-0400Body mass index (BMI) [Ratio]29.41 kg/i8RydrkcxrSteph Keane TEXTILE SUPERVISOR Work Phone: [phone] [place], [place] [address]Mscpuoslza64-54-1069 15:54-0400Body hujtgi24.94 kgSteph Keane TEXTILE SUPERVISOR Work Phone: [phone] HospitalBjppjjueeq59-59-9925 15:54-0400Diastolic blood gepqiozu53 mm[Hg]Steph Keane TEXTILE SUPERVISOR Work Phone: [phone]-[facility] HospitalMgmqewqetv76-75-6278 15:54-0400Systolic blood iwwfqbvc071 mm[Hg]Steph Keane TEXTILE SUPERVISOR Work Phone: [facility] HospitalYnvolnldgq38-48-3832 15:37-0400Body mass index (BMI) [Ratio]29.23 kg/d9GxfxakgcSteph Keane TEXTILE SUPERVISOR Work Phone: [facility] HospitalRyjbhqhmnr50-53-7294 15:37-0400Body mlxpma32.48 kgSteph Rickettserly TEXTILE SUPERVISOR Work Phone: [facility] HospitalMmhxspuobp63-96-3883 15:37-0400Diastolic blood pkodgfzc43 mm[Hg]Steph Keane TEXTILE SUPERVISOR Work Phone: [facility] HospitalQuzmuhlalm86-74-9021 15:37-0400Systolic blood gwhklejo385 mm[Hg]Steph Rickettserly TEXTILE SUPERVISOR Work Phone: [facility] HospitalPpupcjwcsc12-82-4690 15:55-0400Body mass index (BMI) [Ratio]29.45 kg/w9ZknjyoTeena Sarmiento RN Work Phone: [phone])000-[address] [place], [place] 9404309-29-2025 15:55-0400Body aodchd24.03 kgTeena Sarmiento RN Work Phone: [phone] [place], [place] 8112909-17-2025 14:32-0400Body mass index (BMI) [Ratio]27.82 kg/y5Gbyuy Kiesha DO Work Phone: [facility] HospitalIhvaztvoxu63-05-3475 14:32-0400Body yangmt95 kg Nathan Kiesha DO Work Phone: [facility] HospitalCpsrwepbzn87-13-5704 14:32-0400Diastolic blood mm[Hg]Nathan Kiesha DO Work Phone: [place] [address]Ogszqfpaak53-82-8871 14:32-0400Systolic blood robhebve612 mm[Hg]Nathan Kiesha DO Work Phone: [facility] HospitalSqsvkukfik69-12-5828 15:36-0400Body cfmdzi224.5 cmGeorge Kageovanian DO Work Phone: NOCarondelet HealthSyrijlquze79-02-8092 15:36-0400Body mass index (BMI) [Ratio]27.62 kg/i5Salbygsherita Beltran DO Work Phone: MXCarondelet HealthBfdfxdujzs04-12-7073 15:36-0400Body temperature 97.11 [degF]Eliceo Beltran DO Work Phone: NOCarondelet HealthHjgbqolgmf38-05-8617 15:36-0400Body .49 kgGeorsherita Beltran DO Work Phone: YTCarondelet HealthJxqpuvkmvx12-32-5161 15:36-0400Diastolic blood fbxjadhb30 mm[Hg]Eliceo Beltran DO Work Phone: EJCarondelet HealthGxqgpyadys49-01-7707 15:36-0400Heart rate97 /min Eliceo Beltran DO Work Phone: [facility] HospitalXxjdgscmtr31-76-5093 15:36-8685GtI1% (BldA) [Mass fraction]98 %Eliceo Beltran DO Work Phone: JRCarondelet HealthDitpyqaesw69-85-9635 15:36-0400Systolic blood iwuduups458 mm[Hg]Eliceo Beltran DO Work Phone: [facility] HospitalKpkfgoleoh69-21-5411 15:42-0400Body mass index (BMI) [Ratio]26.48 kg/j4Ogfys Fazio DO Work Phone: [facility] HospitalUmnspfpkvj59-87-3713 15:42-0400Body pisgrc74.68 kgCorepearl Cabrerao DO Work Phone: [facility] HospitalCmhcwxfhkl46-82-0648 15:42-0400Diastolic blood mm[Hg]Nathan Cabrerao DO Work Phone: [facility] HospitalWtwwqspagd28-52-1582 15:42-0400Systolic blood xakledhw793 mm[Hg]Nathnapearl Cabrerao DO Work Phone: [facility] HospitalGnccjbnxvv82-36-3454 14:33-0400Body mass index (BMI) [Ratio]26.73 kg/p6Kqgeq Kiesha DO Work Phone: [facility] HospitalAejuafkdbs48-19-2683 14:33-0400Body etcyxl15.28 kgCorey Kiesha DO Work Phone: [facility] HospitalYlltaglvhc56-51-1803 14:33-0400Diastolic blood gydstczv71 mm[Hg]Nathan Kiesha DO Work Phone: 1([phone])260-[address] [place], [place] [address]Qpytucfoym19-78-5957 14:33-0400Systolic blood iteqkxhe029 mm[Hg]Nathan Kiesha DO Work Phone: 1(221)728-[address] [place], [place] [address]Jobyprwgmz48-80-1163 14:45-0400Body mass index (BMI) [Ratio]25.24 kg/z8Vmxsf Kiesha DO Work Phone: 1(202)651-[address] [place], [place] [address]Fvopcqotyx33-00-9315 14:45-0400Body pbeqpx42.6 kg Nathan Kiesha DO Work Phone: 1(536)269-[address] [place], [place] [address]Nsfljrtkru61-14-3357 14:45-0400Diastolic blood mm[Hg]Nathan Kiesha DO Work Phone: 1(299)212-[address] [place], [place] [address]Anmugiwnke02-92-5862 14:45-0400Systolic blood xcwwgqyo089 mm[Hg]Nathan Kiesha DO Work Phone: 1([phone])912-[address] [place], [place] [address]Nlaqmctyjj24-94-9492 10:29-0400Body mass index (BMI) [Ratio]25.68 kg/m2[facility]06-06-2025 10:29-0400Body .69 kgC[facility]02-24-2025 15:08-0500Body mass index (BMI) [Ratio]25.99 kg/r4Izqll Kiesha DO Work Phone: 1(093)270-[address] [place], [place] [address]Blgfqxzzfe73-69-9109 15:08-0500Body zoyszp22.47 kgCorey Kiesha DO Work Phone: [phone] [place], [place] [address]Joaujqpvpo51-56-3716 15:08-0500Diastolic blood acpsmnjc29 mm[Hg]Nathan Kiesha DO Work Phone: 1(867)611-[address] [place], [place] [address]Nkdljozlgo63-04-0869 15:08-0500Systolic blood szkxrzie634 mm[Hg]Nathan Kiesha DO Work Phone: 1(567)171-[address] [place], [place] [address]Azknpkoklc05-18-4123 15:53-0500Body ibhkct146.5 cmGemartha Beltran DO Work Phone: noCarondelet HealthMdwrmayvvz93-43-8486 15:53-0500Body mass index (BMI) [Ratio]25.61 kg/u2Pyurmfmartha Beltran DO Work Phone: noCarondelet HealthPnftgyljod82-11-4192 15:53-0500Body temperature 97.11 [degF]Eliceo Beltran DO Work Phone: noCarondelet HealthSjpysdrutf77-03-1245 15:53-0500Body .5 kg Eliceo Beltran DO Work Phone: noCarondelet HealthFatneryfty18-63-9740 15:53-0500Diastolic blood mm[Hg]Eliceo Beltran DO Work Phone: noCarondelet HealthYguzabpusx95-54-9047 15:53-0500Heart rate51 /min Eliceo Beltran DO Work Phone: noCarondelet HealthLehuimqzma01-89-4957 15:53-6442YfR0% (BldA) [Mass fraction]98 %Eliceo Beltran DO Work Phone: noCarondelet HealthQucwoggedi71-75-9030 15:53-0500Systolic blood pqrojdaj108 mm[Hg]Eliceo Beltran DO Work Phone: noCarondelet HealthApfeqjouog52-32-4610 11:15-0400Body mass index (BMI) [Ratio]25.97 kg/z5Ufjvt Fazio DO Work Phone: [facility] HospitalPnnjrhohvu80-81-3782 11:15-0400Body oyfjcg66.41 kgNathan Pop DO Work Phone: NOCarondelet HealthWtkyvcfrob25-80-5821 11:15-0400Diastolic blood jljoetsa18 mm[Hg]Nathan Pop DO Work Phone: [facility] HospitalGdbmvetkqe33-67-0423 11:15-0400Systolic blood jnhmppom799 mm[Hg]Nathan Pop DO Work Phone: noCarondelet HealthFesepvxgjd56-69-6631 10:02-0400Body mass index (BMI) [Ratio]25.39 kg/i1Wjjxw Kiesha DO Work Phone: [phone])751-[address] [place], [place] [address]Httjxvglmt91-47-4137 10:02-0400Body tqqunf42.96 kgCorey Kiesha DO Work Phone: 1(775)[facility] [place], [place] [address]Yuhpqixqrr63-93-1437 10:02-0400Diastolic blood aziijgjx65 mm[Hg]Nathan Kiesha DO Work Phone: 1(110)532-[address] [place], [place] [address]Qgkhfaiojz51-94-6684 10:02-0400Systolic blood mm[Hg]Nathan Kiesha DO Work Phone: 1(722)[facility] [place], [place] [address]Nqgbvboaex43-25-6421 10:55-0500Body mass index (BMI) [Ratio]28.17 kg/n2Zqhzy Kiesha DO Work Phone: 1(736)[facility] [place], [place] [address]Aqohzzqnfq50-06-6764 10:55-0500Body uvwmwl52.85 kgCorey Kiesha DO Work Phone: 1(879)[facility] [place], [place] [address]Eipoapnfcm25-88-1896 10:55-0500Diastolic blood cefxhenb72 mm[Hg]Nathan Kiesha DO Work Phone: 1(846)[facility] [place], [place] [address]Dctjhxjrgz42-69-9111 10:55-0500Systolic blood moqmxhao817 mm[Hg]Nathan Kiesha DO Work Phone: 1(638)[facility] [place], [place] [address]Anpzbnvdph20-89-9546 17:31-0400Body temperature 98.96 [degF][facility]10-18-2023 17:31-0400 Diastolic blood benxlzup36 mm[Hg][facility]10-18-2023 17:31-9306CZS6 99 %[facility]10-18-2023 17:31-0400Heart ahwf246 /minV[facility] Loco [facility]10-18-2023 17:31-0400 Respiratory rate16 /minV[facility]10-18-2023 17:31-0400 Systolic blood eoqcnzuh832 mm[Hg][facility]06-06-2023 10:55-0400Body lxwuco966.5 cmErin Reaper BUSINESS INTELLIGENCE ARCHITECT.SUPERVISOR [employer] Work Phone: [phone] Zlraeq33-52-5262 10:55-0400Body xcnlak08.86 kgErin Reaper BUSINESS INTELLIGENCE ARCHITECT.SUPERVISOR [employer] Work Phone: [phone] Ajxhvv93-40-3766 10:55-0400Diastolic blood mm[Hg]Jihan Reaper BUSINESS INTELLIGENCE ARCHITECT.SUPERVISOR [employer] Work Phone: [phone] Gllehq50-65-7718 10:55-0400Systolic blood dlaaqsac128 mm[Hg]Jihan Reaper BUSINESS INTELLIGENCE ARCHITECT.SUPERVISOR [employer] Work Phone: [place] Qdlmkb76-00-8567 19:18-0500Diastolic blood dwbxjzer13 mm[Hg][facility]03-08-2023 19:18-0500Heart rate98 /min[facility]03-08-2023 19:18-0500Nursing Progress Note ReasonOther: this RN discharged pt. pt verbalizes understanding and denies questiosn prior to discharge.[facility]03-08-2023 19:18-0500Respiratory rate16 /min[facility]03-08-2023 19:18-8624CtQ3% (BldA) [Mass fraction]100 %[facility]03-08-2023 19:18-0500 Systolic blood xzsnamkb733 mm[Hg][facility] 01-31-2023 18:00-0500Diastolic blood mm[Hg][facility]03-08-2023 18:00-0500Heart gghs230 /min[facility]03-08-2023 18:00-0500Mean blood upsiicbv289 mm[Hg][facility]03-08-2023 18:00-3142VtX2% (BldA) [Mass fraction]99 %[facility]03-08-2023 18:00-0500 Systolic blood mm[Hg][facility] 01-31-2023 17:00-0500Diastolic blood befztncy11 mm[Hg][facility]03-08-2023 17:00-0500Mean blood kceahmsa770 mm[Hg][facility]03-08-2023 17:00-0500Systolic blood pressure 117 mm[Hg][facility]03-08-2023 16:38-0500Heart roll890 /min[facility]03-08-2023 16:38-0500Mean blood ylftogte252 mm[Hg][facility]03-08-2023 16:38-0500Respiratory rate18 /[facility] 01-31-2023 13:49-0500Body zzhwlkscluk55.88 [degF][facility]03-08-2023 13:49-0500Heart clru163 /min[facility]02-04-2023 14:55-0500Body cshoghkytei64.88 [degF][facility]02-04-2023 14:55-0500Diastolic blood lfkbynoq70 mm[Hg][facility]02-04-2023 14:55-0500Heart rate84 /min[facility]02-04-2023 14:55-0500Mean blood mnndeizr592 mm[Hg][facility]02-04-2023 14:55-0500Respiratory rate20 /min[facility]02-04-2023 14:55-9783EoP2% (BldA) [Mass fraction]98 %[facility]02-04-2023 14:55-0500Systolic blood pressure 137 mm[Hg][facility]02-04-2023 14:35-0500Body kmpktueayli70.88 [degF][facility]02-04-2023 14:35-0500Diastolic blood ylexhjcy61 mm[Hg][facility]02-04-2023 14:35-0500Heart rate82 /min[facility]02-04-2023 14:35-0500Mean blood mm[Hg][facility]02-04-2023 14:35-0500Respiratory rate16 /min[facility]02-04-2023 14:35-0202XtB9% (BldA) [Mass fraction]97 %[facility]02-04-2023 14:35-0500Systolic blood mhqpxelp658 mm[Hg][facility]02-04-2023 13:35-0500Body cnosgevpjpz13.88 [degF][facility]02-04-2023 13:35-0500Diastolic blood plfnhfwo26 mm[Hg][facility]02-04-2023 13:35-0500Heart rate80 /min[facility]02-04-2023 13:35-0500Mean blood oezhrbfa25 mm[Hg] [facility]02-04-2023 13:35-0500Respiratory rate 17 /min[facility]02-04-2023 13:35-0071WfM7% (BldA) [Mass fraction]96 %[facility]02-04-2023 13:35-0500Systolic blood jszmeetc189 mm[Hg][facility]02-04-2023 13:00-0500Respiratory rate12 /min[facility]02-04-2023 12:55-0500Respiratory rate9 /min[facility]02-04-2023 12:50-0500Respiratory rate10 /min[facility]02-04-2023 08:15-0500Body gdmfwezienc70.24 [degF] [facility]02-04-2023 08:15-0500Heart umvs193 /min[facility]01-07-2023 13:41-0500Body wwibhpydsup95.2 [degF]Kathe Ryder DO Work Phone: 1(737)570-[address] [place], [place] [address]Znmtzu26-05-8841 13:41-0500Diastolic blood acxdyuxa03 mm[Hg]Kathe Ryder DO Work Phone: [facility] HospitalIhnmwy30-25-6118 13:41-0500Heart hmam153 /min Kathe Ryder DO Work Phone: [phone] HospitalAecmah86-64-8694 13:41-0500Respiratory rate18 /minKathe Ryder DO Work Phone: [facility] HospitalDhxfhj86-60-8951 13:41-9862IeU6% (BldA) [Mass fraction]99 %Kathe Ryder DO Work Phone: [facility] HospitalXjndat76-65-2572 13:41-0500Systolic blood nivurvhr291 mm[Hg]Kathe Ryder DO Work Phone: [facility] HospitalFvrnyh19-90-6241 00:45-0500Body cxsazg453.5 cm Kathe Ryder DO Work Phone: [facility] HospitalGqmtrq37-44-1937 00:45-0500Body mass index (BMI) [Ratio]25.61 kg/q6AqqtuezgqKathe Ryder DO Work Phone: [facility] HospitalVedsth69-32-8891 00:45-0500Body kjmvoy09.5 kg Kathe Ryder DO Work Phone: [facility] HospitalPmkjpz67-24-9103 22:26-0500Hourly Rounding Fredi KARASIK [address] [place], [place] [address]Comment on above:Result Comment: ensured that all pt belongings are sent with pt. pt has no questions or concerns. report given to EMS. pt stable and no s/s of distress. pt off unit to ornwuric48-09-0337 22:00-0500Diastolic blood swpmiwrg24 mm[Hg]Fredi KARASIK [address] [place], [place] 5498001-02-2023 22:00-0500Heart oxqr105 /minGregory KARASIK [address] [place], [place] 5498001-02-2023 22:00-0500 Hourly RoundingGregory KARASIK [address] [place], [place] 5498001-02-2023 22:00-0500Mean blood ttdmgpeo675 mm[Hg]Fredi KARASIK [address] [place], [place] 5498001-02-2023 22:00-0500 Systolic blood uspnoyyy199 mm[Hg]Fredi KARASIK [address] [place], [place] 5498001-02-2023 21:50-0500Blood Pressure LocationGregory KARASIK [address] [place], [place] 5498001-02-2023 21:50-0500 Diastolic blood mnqcqvru00 mm[Hg]Fredi KARASIK [address] [place], [place] 5498001-02-2023 21:50-0500Heart hrme223 /minGregory KARASIK [address] [place], [place] 5498001-02-2023 21:50-0500 Hourly RoundingGregory KARASIK [facility]01-02-2023 21:50-0500Mean blood vwazcdjw595 mm[Hg]Fredi SCHUMACHERASIK [address] [place], [place] 5498001-02-2023 21:50-0500 Respiratory rate18 /minFredi SCHUMACHERASIK [address] [place], [place] 5498001-02-2023 21:50-5827KcA1% (BldA) [Mass fraction]98 %Fredi SCHUMACHERASIK [address] [place], [place] 5498001-02-2023 21:50-0500 Systolic blood sltmicss277 mm[Hg]Fredi KARASIK [address] [place], [place] 5498001-02-2023 21:37-0500Blood Pressure LocationGregrosa ABREUK [address] [place], [place] 5498001-02-2023 21:37-0500 Diastolic blood uvmrkvxj13 mm[Hg]Fredi SCHUMACHERASIK [address] [place], [place] 5498001-02-2023 21:37-0500Heart broj713 /minFredi ABREUK [address] [place], [place] 5498001-02-2023 21:37-0500Mean blood qhosrymp137 mm[Hg]Fredi SCHUMACHERASIK [address] [place], [place] 5498001-02-2023 21:37-7529YgE3% (BldA) [Mass fraction]97 %Fredi SCHUMACHERASIK [address] [place], [place] 5498001-02-2023 21:37-0500 Systolic blood uxnowerd396 mm[Hg]Fredi KARASIK [address] [place], [place] 5498001-02-2023 21:30-0500Blood Pressure LocationFredi SCHUMACHERASIK [address] [place], [place] 5498001-02-2023 21:30-0500Body ogxshvcmpkx50.6 [degF]Fredi DORSEY [facility]01-02-2023 19:00-0500Body mxywsuekwyb48.24 [degF]Fredi DORSEY [facility]01-02-2023 17:15-0500Body kaolcwuhjfk35.06 [degF]Fredi DORSEY [facility]01-02-2023 14:02-0500Heart rate99 /minFredi DORSEY [facility]08-19-2022 07:00-0400Body iqxljdrqvpb39.6 [degF]Kaylinn Dokken [address]08-19-2022 07:00-0400 Diastolic blood tzllhulc04 mm[Hg]Kaylinn Dokken [address]08-19-2022 07:00-0400Heart rate80 /minKaylinn Dokken [address] [place], [place] 9742408-19-2022 07:00-0400Mean blood emvqqvik28 mm[Hg]Kaylinn Dokken [address] [place], [place] 9742408-19-2022 07:00-0400 Respiratory rate17 /minKaylinn Dokken [address]08-19-2022 07:00-0400 Systolic blood mm[Hg]Kaylinn Dokken [address] [place], [place] 9742408-19-2022 06:07-0400Body mxntgguriow80.24 [degF]Kaylinn Dokken [address]08-19-2022 06:07-0400 Diastolic blood mm[Hg]Kaylinn Dokken [address] [place], [place] 9742408-19-2022 06:07-0400Heart rate90 /minCharlotteylinn Dokken [address]08-19-2022 06:07-0400 Respiratory rate18 /minCharlotteylinn Dokken [address] [place], [place] 9742408-19-2022 06:07-0214SmU2% (BldA) [Mass fraction]100 %Kumar Villagomez [address]08-19-2022 06:07-0400 Systolic blood ymodxatl967 mm[Hg]Beatrisn Yulyen [address] [place], [place] 9742408-19-2022 05:30-0400 Hourly RoundingCorey KIESHA [address] [place], [place] [address]Comment on above:Result Comment: Pt discharged per physician orders. Pt ambulates off unit with a steady tgjv28-25-8232 05:15-0400Diastolic blood ighsperq02 mm[Hg]Nathan KIESHA [address] [place], [place] 5498008-19-2022 05:15-0400Heart pnty081 /minCorey KIESHA [address] [place], [place] 5498008-19-2022 05:15-0400 Hourly RoundingCorey KIESHA [address] [place], [place] 5498008-19-2022 05:15-0400Mean blood ysozvgju47 mm[Hg]Nathan KIESHA [address] [place], [place] 5498008-19-2022 05:15-0400 Respiratory rate18 /minCorey KIESHA [address] [place], [place] 5498008-19-2022 05:15-0400 Systolic blood lenddreo785 mm[Hg]Nathan KIESHA [address] [place], [place] 5498005-24-2022 11:00-0400Body keresa605.02 cmCameron Edward Other nort [employer] Other 05-24-2022 11:00-0400Body mass index (BMI) [Ratio] 23.03 kg/i9Levqfok Mediustty Other [facility] [employer] Other 05-24-2022 11:00-0400Body eimept58.97 kgCamerojunior Loratty Other [facility] [employer] Other 03-17-2022 11:41-0400Body faxfzq911.48 cmMegan Billow DO Work Phone: [phone]-PKHTY[address] Work Phone: [phone] 11:41-0400Body mass index (BMI) [Ratio] 24.51 kg/i9Gqqtn Billow DO Work Phone: SM-XSLKU[address] Work Phone: [phone] 11:41-0400Body surface area Derived from formula1.61 x8Vxipx Billow DO Work Phone: HT-WCKKT[address] Work Phone: [phone] 11:41-0400Body ekswvt75.78 kgMegan Billow DO Work Phone: LJ-AKULL[address] Work Phone: [phone] 11:41-0400Diastolic blood dsjbtotp59 mm[Hg] Charlene Billow DO Work Phone: XB-LCTOG[address] Work Phone: [phone] 11:41-0400Systolic blood sakncecn199 mm[Hg] Charlene Billow DO Work Phone: XG-YNTRB[address] Work Phone: [phone] 11:41-59492 1Megan Billow DO Work Phone: JX-TABVV[address] Work Phone: Comment on above:DKFSJWHOAgusAxzbj39-40-4486 14:53-0400Body sxgsia161.48 cmMegan Billow DO Work Phone: KR-NUSHY[address] Work Phone: [phone] 14:53-0400Body mass index (BMI) [Ratio] 21.77 kg/r8Ntjps Billow DO Work Phone: AZ-XOGBI[address] Work Phone: [phone] 14:53-0400Body surface area Derived from formula1.53 u8Krose Billow DO Work Phone: LA-YNBFL[address] Work Phone: [phone] 14:53-0400Body .98 kgMegan Billow DO Work Phone: HE-URFIS[address] Work Phone: [phone] 14:53-0400Diastolic blood camiycwe13 mm[Hg] Charlene Billow DO Work Phone: BX-QLXPI[address] Work Phone: [phone] 14:53-0400Heart xtvl944 /minMegan Billow DO Work Phone: TC-ZMMNM[address] Work Phone: [phone] 14:53-0400Systolic blood aqoepwwq738 mm[Hg] Chalrene Billow DO Work Phone: QH-HWUQB[address] Work Phone: [phone] 14:53-97885 1Megan Billow DO Work Phone: XO-IFKOU-[address] Work Phone: Comment on above:GRAVPARAPainScale Encounters Encounter DateEncounter Type[facility] ProviderFacilityStart: 10-06-2025 End: 22-29-9235Qamkfo outpatient visit 25 minutesColleen E Matthias CLAYTON Work Phone: [phone]-Npzpf Medicine at [facility] Comment on above:Insulin controlled gestational diabetes mellitus (GDM) in third trimester (Primary Dx); Essential hypertension affecting in third trimesterStart: 10-06-2025 End: 14-62-1663fwbbsufxkvIFZGDCY E MATTHIASProMedica Parkview Health [facility] Hospitaltart: 10-05-2025 End: 07-22-0567Bzlohzpah encounterAnjana Davalos RNMaternal- [facility]: 10-03-2025 End: 47-56-4608Azftperhd Result EncounterSteph Keane NP Work Phone: noms External Department UnsolicitedStart: 10-03-2025 End: 12-12-1742Tlqmedwat Result EncounterSteph Keane NP Work Phone: noms External Department UnsolicitedStart: 09-30-2025 End: 52-67-3965Tyfsrqyd flow sheetCorey Kiesha DO Work Phone: noms Patti OBGYNComment on above:Third trimester ([facility]); 31 weeks gestation of ([facility]); Pre-eclampsia in third trimester ([facility])Start: 09-30-2025 End: 24-18-6094hwchmcfzlaLYGES FAZIONot AvailableStart: 09-30-2025 End: 46-47-3688Yuixzf flowsheetCorey Kiesha DO Work Phone: noMS Waldo OBGYNStart: 09-30-2025 End: 50-92-2296Jlgshe flowsheetCorey Kiesha DO Work Phone: NOMS Patti OBGYNStart: 09-28-2025 End: 93-28-2764Epctgn OnlyChivo Springer PA-C Work Phone: [phone]-Wmnhh Medicine at [facility] Comment on above:Essential hypertension affecting in third trimester Start: 09-26-2025 End: 80-24-2576Bpdbpxkwq Result EncounterSteph Keane NP Work Phone: noms External Department UnsolicitedStart: 09-26-2025 End: 90-12-9184Ghjhrsdsq Result EncounterSteph Keane NP Work Phone: noms External Department UnsolicitedStart: 09-21-2025 End: 49-94-5593osmthkfvebMmzoffs E Lavoy PA-C Work Phone: [phone]-Nveok Medicine at [facility] Comment on above:Insulin controlled gestational diabetes mellitus (GDM) in third trimester (Primary Dx); Essential hypertension affecting in third trimesterStart: 09-21-2025 End: 58-37-4079Rkihvptcm encounterVerito EDOUARD Work Phone: [phone]-Mjsbo Medicine at [facility] Start: 09-19-2025 End: 70-28-0645Cgkufdwjf Result EncounterSteph Keane NP Work Phone: noms External Department UnsolicitedStart: 09-19-2025 End: 76-96-5567Nbzkrhqqy Result EncounterSteph Keane NP Work Phone: noms External Department UnsolicitedStart: 09-17-2025 End: 04-49-6630Gzidgf Breanna CAGE Work Phone: [phone]-Reiwk Medicine at [facility] Comment on above:Essential hypertension affecting in third trimester Start: 09-16-2025 End: 61-68-1590srayjxasleFYIFR FAZIONot AvailableStart: 09-16-2025 End: 45-35-9511Rngykpkd flow sheetCorey Kiesha DO Work Phone: noms Patti OBGYNComment on above:29 weeks gestation of ([facility]-HCC); Third trimester ([facility]); Hypertension affecting , antepartum ([facility]); Gestational diabetes mellitus (GDM), antepartum, gestational diabetes method of control unspecified([facility]-HCC)Start: 09-16-2025 End: 95-45-3905Chhzup flowsheetCorey Kiesha DO Work Phone: NOMS [place] OBGYNStart: 09-16-2025 End: 12-84-8069Ncinqk flowsheetCorey Kiesha DO Work Phone: NOM[facility] [place] OBGYNStart: 09-16-2025 End: 12-88-6755Eajtzvdwx Nirmal Harris [facility]: 09-15-2025 End: 09-70-4058GyfvccMika Springer PA-C Work Phone: [phone]-Youxt Medicine at [facility] Comment on above:Essential hypertension affecting in third trimester Start: 09-10-2025 End: 26-45-8503Lffyvw outpatient visit 25 minutesMadhuri Monroy MD Work Phone: [facility] Medicine [place]Comment on above: 28 weeks gestation of (Primary Dx); Insulin controlled gestational diabetes mellitus (GDM) in second trimester; Essential hypertension affecting in third trimesterStart: 09-10-2025 End: 72-27-0658wnbngmplrhAEUPUNHT P DOCHEVASumma [facility] Start: 09-04-2025 End: 56-09-0946Pfugwo consultation new/estab patient 60 Annalee Denise MD Work Phone: [phone]-Udoxf Medicine at [facility] Comment on above:Diet controlled gestational diabetes mellitus (GDM) in second trimester (Primary Dx); Essential hypertension affecting in third trimesterStart: 09-04-2025 End: 29-17-7500bmmmczngxeZKYPNANona McVan Wert County Hospitaltart: 09-03-2025 End: 57-21-1608Ircqytjo flow sheetSteph Keane TEXTILE SUPERVISOR Work Phone: NOJP Patti OBGYNComment on above:Hypertension affecting , antepartum ([facility]) (Primary Dx); 27 weeks gestation of ([facility]); Second trimester ([facility])Start: 09-03-2025 End: 42-71-4900laargyfsepDJESEMMY EBERLYNot AvailableStart: 09-03-2025 End: 93-13-9717Sfumnp flowsheetSteph Keane TEXTILE SUPERVISOR Work Phone: NOMS [place] OBGYNStart: 09-03-2025 End: 61-66-9603Vzcpzjvpv Result EncounterCorey Kiesha DO Work Phone: noms External Department UnsolicitedStart: 09-03-2025 End: 14-13-2823Kdnoprxhw Result EncounterCorey Kiesha DO Work Phone: noms External Department UnsolicitedStart: 09-01-2025 End: 62-25-1489Loinzgjjj encounterCha Harris RNMaternal- Medicine at [facility]: 08-29-2025 End: 02-94-6811Zgphiqnfz Result EncounterSteph Keane NP Work Phone: noms External Department UnsolicitedStart: 08-29-2025 End: 66-46-2866Ovzubkomh Result EncounterSteph Keane NP Work Phone: noms External Department UnsolicitedStart: 08-27-2025 End: 30-19-6147yyufqvlzmnLNNENQNX EBERLYNot AvailableStart: 08-27-2025 End: 03-66-4001Nvjbiazz flow sheetSteph Keane TEXTILE SUPERVISOR Work Phone: NOMS Patti OBGYNComment on above:26 weeks gestation of ([facility]); Second trimester ([facility]-HCC); induced hypertension, antepartum ([facility]-HCC); Gestational diabetes mellitus (GDM) in second trimester, gestational diabetes method of control unspecified ([facility]-HCC)Start: 08-27-2025 End: 27-87-6340Axakzq flowsheetSteph Elsa TEXTILE SUPERVISOR Work Phone: NOQI Patti OBGYNStart: 08-27-2025 End: 53-75-1114Ehmcyi flowsheetSteph Keane TEXTILE SUPERVISOR Work Phone: NOAV Patti OBGYNStart: 08-27-2025 End: 33-26-4052Vtdfgjjhh Result EncounterSteph Keane TEXTILE SUPERVISOR Work Phone: noms External Department UnsolicitedStart: 08-25-2025 End: 48-03-7952Icqwgpkta Result EncounterGeneric External Data ProviderNOMS External Department UnsolicitedStart: 08-25-2025 End: 19-91-2614Oysvrtjwp Result EncounterGeneric External Data ProviderNOMS External Department UnsolicitedStart: 08-24-2025 End: 84-34-4510decpicmqyuMcntsw M Frey RN Work Phone: [phone]-Snogh Medicine at [facility] Comment on above:Gestational diabetes mellitus (GDM) in second trimester, gestational diabetes method of control unspecifiedStart: 08-21-2025 End: 89-68-3968Jddta abstractingScanning Provider ExternalMaternal- Medicine at [facility]: 08-18-2025 End: 74-64-1636Dnxur Aura Monroy MD Work Phone: [phone]-Tgalk Medicine at [facility] Start: 08-15-2025 End: 20-42-4760jqitiayznpHFDTWIWS EBERLYFacility:FTMCStart: 08-12-2025 End: 52-68-4952Jjclnfkh flow sheetCorey Kiesha DO Work Phone: noms [place] OBGYNComment on above:24 weeks gestation of ([facility]); Second trimester ([facility]); Elevated glucose tolerance testStart: 08-12-2025 End: 75-34-0005jfsiizxwnfDMLEA FAZIONot AvailableStart: 08-12-2025 End: 86-62-2031goskjsbfquFixcb Bryant MANISHAOFacility:FTMCStart: 08-01-2025 End: 04-55-4647noldirgqquP KENNETH BELTRANFacility:FTMCStart: 07-30-2025 End: 52-68-0238Uuebsyo encounter statusGemartha Hurtado Ruby DO Work Phone: [facility] Work Phone: Start: 07-30-2025 End: 71-14-1897Uamvotvz preventive med est patient 18-39 yrsGeorsherita Hurtado Charlottecarol DO Work Phone: noms [facility] 230Comment on above: Wellness examination (Primary Dx); Hypertension, unspecified type ; Lipid screeningStart: 07-30-2025 End: 91-71-4474fdrzzaldeqCZHGPY R KAFTANNot AvailableStart: 07-30-2025 End: 43-79-7381Ayoigt flowsheetEliceo Hurtado Ruby DO Work Phone: noms [facility] 230Start: 07-30-2025 End: 44-85-9242Xzzpre flowsreynoldEliceo Hurtado Ruby DO Work Phone: noms [facility] 230Start: 07-15-2025 End: 10-53-5092Xvtjkzzh flow sheetCorey Kiesha DO Work Phone: NODH [place]do OBGYNComment on above:20 weeks gestation of ([facility]); Second trimester ([facility]); Diabetes mellitus screeningStart: 07-15-2025 End: 51-32-4728kxoumgdkcmFBRZN FAZIONot AvailableStart: 07-15-2025 End: 07-57-9693Kixzsuxxy Result EncounterCorey Kiesha DO Work Phone: NOXG External Department UnsolicitedStart: 07-15-2025 End: 15-99-4511Ytdqfumqt Result EncounterCorey Kiesha DO Work Phone: NOMS External Department UnsolicitedStart: 06-22-2025 End: 64-15-8475Vpwghtdy flow sheetCorey Kiesha DO Work Phone: NOGB [place] OBGYNComment on above:Sinusitis, unspecified chronicity, unspecified location (Primary Dx); Second trimester ([facility]); 17 weeks gestation of ([facility]); Screening, , for anatomic survey ([facility])Start: 06-22-2025 End: 55-74-3472wvojxehsoqXKBUK FAZIONot AvailableStart: 06-22-2025 End: 85-68-2541Oztfze flowsheetCorey Kiesha DO Work Phone: NOGP [place] OBGYNStart: 06-22-2025 End: 08-21-3524Nqzmbj flowsheetCorey Kiesha DO Work Phone: NOWB Patti OBGYNStart: 06-22-2025 End: 82-22-2494Txevsfsd Result EncounterCorey Kiesha DO Work Phone: NOEZ External Department UnsolicitedStart: 05-25-2025 End: 42-01-5233qfqdyxpgckVRFNL FAZIONot AvailableStart: 05-25-2025 End: 69-39-0143Mcczkfkl flow sheetCorey Kiesha DO Work Phone: NOKQ BCP OBComment on above:Nonintractable episodic headache, unspecified headache type (Primary Dx); Second trimester ([facility]); 13 weeks gestation of ([facility])Start: 05-25-2025 End: 49-24-1914Vtosci flowsheetCorey Kiesha DO Work Phone: NOMS BCP OBStart: 05-25-2025 End: 74-91-3457Rqfrto flowsheetCorey Kiesha DO Work Phone: NOMS BCP OBStart: 05-04-2025 End: 56-53-5382Pnjkacssq Result EncounterCorey Kiesha DO Work Phone: NOMS External Department UnsolicitedStart: 05-04-2025 End: 91-82-8663Rifoxmbgx Result EncounterCorey Kiesha DO Work Phone: noms External Department UnsolicitedStart: 05-01-2025 End: 52-77-4172Rudfujgjt Result EncounterCorey Kiesha DO Work Phone: noMS External Department UnsolicitedStart: 05-01-2025 End: 97-39-1398Oakkxrjrg Result EncounterCorey Kiesha DO Work Phone: noms External Department UnsolicitedStart: 05-01-2025 End: 08-13-9573cwkprvdnerPTIHWY Jose Angel AvailableStart: 05-01-2025 End: 10-43-9080Kqxlxu outpatient visit 5 minutesNoms Bcp Ob Kiesha NurseNOMS BCP OBComment on above:GA: 8h5sQikky: 03-13-2025 End: 15-20-5876zzqfvissavCkycm R FAZIOFacility:FTMCStart: 03-13-2025 End: 51-41-2834Pmtpocq encounter procedureCorey R KIESHA [facility] Start: 02-02-2025 End: 86-40-5138Qwhsrmn encounter procedureDenny Rodríguez MD Work Phone: [facility] Main [place] Work Phone: Start: 02-02-2025 End: 20-33-9761cnejakwhqkEjuwx Baxter MD Work Phone: [facility] Work Phone: Start: 01-22-2025 End: 12-97-2723xopoesogbjAhmia R FAZIOFacility:FTMCStart: 01-22-2025 End: 26-78-0899Zyntgzo encounter procedureCorey R KIESHA [facility] Start: 01-19-2025 End: 06-42-7457Wrwcsf outpatient visit 15 minutesCorey Kiesha DO Work Phone: noms BCP OBComment on above:Pain in female genitalia on intercourse; EndometriosisStart: 01-19-2025 End: 02-81-5753gbbhffcompSYDWQ FAZIONot AvailableStart: 01-19-2025 End: 09-91-9404Suykfl flowsheetCorey Kiesha DO Work Phone: NOMS BCP OBStart: 01-19-2025 End: 53-00-3589Wtasvd flowsheetCorey Kiesha DO Work Phone: NOMS BCP OBStart: 12-30-2024 End: 86-71-1322hxnmpvslvfXCIZRP R TREYANNot AvailableStart: 12-30-2024 End: 84-22-3082Vfcsvs outpatient visit 15 minutesGeorge R Charlottecarol DO Work Phone: NOXP [facility] 230Comment on above:Hypertension, unspecified type (CMS/HCC) (Primary Dx); Paroxysmal tachycardia, unspecified (CMS/HCC); Chronic right shoulder pain; Scapular dyskinesisStart: 08-18-2024 End: 73-96-6770Vflnxv flowsheetCorey Kiesha DO Work Phone: noMS BCP OBStart: 08-18-2024 End: 47-36-5374Mhtnvr flowsheetCorey Kiesha DO Work Phone: noMS BCP OBStart: 08-18-2024 End: 97-47-2273Rlleklynt Result EncounterCorey Kiesha DO Work Phone: noms External Department UnsolicitedStart: 08-18-2024 End: 39-14-5704Vxtlnog encounter procedureCorey Kiesha DO Work Phone: [facility] Work Phone: Start: 08-18-2024 End: 58-11-2356Vskxdyhb preventive med est patient 18-39 yrsCorey Kiesha DO Work Phone: NOMS BCP OBComment on above:Well woman exam with routine gynecological examStart: 07-22-2024 End: 74-66-0063Wrsltt flowsheetCorey Kiesha DO Work Phone: NOMS BCP OBStart: 07-22-2024 End: 65-67-9997Wkckou flowsheetCorey Kiseha DO Work Phone: NOGB BCP OBStart: 07-22-2024 End: 15-23-2508Zurwfk outpatient visit 15 minutesCorey Kiesha DO Work Phone: NOMS BCP OBComment on above:Dysmenorrhea, unspecified Start: 48-78-7155Lwtndaksb encounterMegan Billow DO Work Phone: [facility] Cent[facility]art: 46-30-3775Bosduyvbt encounterMegan Billow DO Work Phone: WDivine Savior HealthcareComment on above:Surgery CancelledStart: 02-13-2024 End: 91-84-0430Gnmrqpiia Result EncounterCorey Kiesha DO Work Phone: NOIK External Department UnsolicitedStart: 02-13-2024 End: 80-58-7066Nuqtxxgpx Result EncounterCorey Kiesha DO Work Phone: noms External Department UnsolicitedStart: 01-15-2024 End: 55-75-9279Xjsebcpku Result EncounterCorey Kiesha DO Work Phone: noms External Department UnsolicitedStart: 01-15-2024 End: 19-80-1417Fiqgqpmwb Result EncounterCorey Kiesha DO Work Phone: noms External Department UnsolicitedStart: 01-10-2024 End: 16-81-1731Utagjj outpatient visit 15 minutesCorey Kiesha DO Work Phone: NOMS BCP OBComment on above:Menorrhagia with regular cycle; Pelvic pain in female; Uses controlStart: 58-48-9246DysqauUtqnv Billow DO Work Phone: [facility] CitiesComment on above:Refill Request Start: 54-82-8638mihkrwawmaTrars Billow DO Work Phone: Obstetrics/GynecologyComment on above:painStart: 12-10-2023 End: 62-12-2594awxxiexqrpPTOTN BILLOWFacility:[facility]tart: 99-30-7839rsxwwfvzxaJeskd Billow DO Work Phone: REM PIRES MCStart: 23-99-9592Ffuestq encounter procedureMegan Billow DO Work Phone: Obstetrics/GynecologyComment on above:office visit Start: 09-12-2023 End: 13-10-5848Ssevssfco department patient Berny Loco [facility] Start: 69-41-9229Zgnkxn pelvic examinationMegan Billow DO Work Phone: Obstetrics/GynecologyComment on above:Pelvic pain in female (Primary Dx)Start: 92-89-9075yvmnwevuvwIwkbx Billow DO Work Phone: Obstetrics/GynecologyComment on above:painful periods Start: 08-24-2023 End: 86-73-0518Yosdqw pelvic examinationErin Vicker BUSINESS INTELLIGENCE ARCHITECT.SUPERVISOR [employer]ACING Work Phone: GynecologyComment on above:High-tone pelvic floor dysfunction (Primary Dx); Chronic pelvic pain in femaleStart: 08-24-2023 End: 49-90-2463Rrdlunkzhxel consultation with Kelton Downs APRN.SUPERVISOR [employer] PLACING Work Phone: [facility] MAINStart: 08-24-2023 End: 34-46-6494ucbmawmhbsQSGC REAPERFacility:[facility] HospitalStart: 26-68-9746cxjmrqosmuNurez Billow DO Work Phone: Obstetrics/GynecologyComment on above:painful period Start: 51-24-1151Hexulflug encounterMegan Billow DO Work Phone: GynecologyComment on above:Insurance Authorization ([place])Start: 07-16-2023 End: 01-73-0109phkklduwpuTNGVZ BILLOWFacility:[facility]tart: 06-12-2023 End: 87-83-2945uvmdomogmiONFWM BILLOWFacility:[facility] Hospitaltart: 06-12-2023 End: 19-21-3161Xllcbhcppi hospital visit by physicianandra [facility] Suki (I-Stat/1.5t) RadiologyComment on above:Pelvic and perineal pain [R10.2]Start: 05-17-2023 End: 48-12-5121Aciylz pelvic examinationMegan Billow DO Work Phone: Obstetrics/GynecologyComment on above:Endometriosis (Primary Dx); Pelvic and perineal painStart: 05-17-2023 End: 33-28-0397Mfertczscarj consultation with kikaCharlene Rodriguez DO Work Phone: Dre [facility]LETANORFOLK STATE HOSPITALtart: 05-17-2023 End: 95-32-5485fvighavgnbHHQLJ ALAN BAXTERFacility:[facility] Start: 19-96-5905Eliommmwx encounterMekevin Billfanny DO Work Phone: GynecologyComment on above:Vaginal BleedingStart: 05-01-2023 End: 87-69-4295spguylzhcxGVIIHYang Stanleycility:[facility] Start: 05-01-2023 End: 31-17-0039Rgzgfjd encounter Lisa Downs APRN.SUPERVISOR [employer] PLACING Work Phone: GynecologyComment on above:Chronic pelvic pain in female (Primary Dx); Constipation, unspecified constipation type; High-tone pelvic floor dysfunction; Diastasis of rectus abdominis; Dysmenorrhea; Other specified dyspareuniaStart: 33-54-5339nuyiiozxpoXzngv Billow DO Work Phone: Obstetrics/GynecologyComment on above:painfulStart: 01-31-2023 End: 67-74-3915Clnyqhokf department patient visitAstrit Phuc [facility] Start: 12-30-2022 End: 69-75-1514Dceyhml encounter procedureAstrit Phuc [facility] Start: 12-05-2022 End: 11-01-4947dlhlqldhihUQOVProvidence St. [facility] SHSStart: 12-05-2022 End: 20-12-5181Wqnerl outpatient visit 15 minutesGin Leonorsrinath DAY Work Phone: [facility] HospitalComment on above:Pre- eclampsia, severe, delivered (Primary Dx)Start: 11-28-2022 End: 39-63-4956Gczykenvbn and management of inpatientAdventHealth for WomenStart: 11-28-2022 End: 37-13-7895Pctpjgmfba and management of inpatientSt. [facility] Work Phone: [facility] POSTPARTUMComment on above:Preeclampsia, severe, third trimester (Primary Dx)Start: 11-28-2022 End: 54-07-5223Tjz-admission assessmentGregrosa DORSEY [facility] Start: 11-27-2022 End: 17-72-5237HH TriageGregrosa DORSEY [facility] Start: 07-14-2022 End: 42-82-8857Nreuipkpj department patient visitCharlotteshayjunior Villagomez [facility] Start: 07-14-2022 End: 79-53-3280TV TriageNathan POP [facility] Start: 04-25-2022 End: 23-32-8923Ieamfoa encounter procedureCAMERON DITTY [facility] Start: 04-18-2022 End: 23-14-2902hlvnujelktLpwwhtd Ditty Other [place] [employer] Other Start: 00-65-1934Qijjuel encounter procedureCamdorene CarrilloyFPG GastroenterologyStart: 15-17-3412Lxkirk outpatient visit 15 minutes Charlene Rodriguez DO Work Phone: [phone]-QNNZI-[address] Work Phone: Start: 09-29-2021 End: 93-83-0467seyvoxtpyiLGWHO ROWENA [facility] Centerpearl [facility] HospitalStart: 09-29-2021 End: 47-80-8262ejpbncthsjBFMTN ROWENAThe University of [facility] Center HospitalStart: 34-08-1461QHPGDMnqiw Billow DO Work Phone: [phone]-HQKJD-[address] Work Phone: Start: 86-13-9462ZRGHXFQNFL, Provider: Charlene Rodriguez, Status: Pen, Time: 2:45 Ina Chau MD Work Phone: [phone]-Slspkvn-[place] Work Phone: Start: 38-72-2536Toakd Oswaldo Chau MD Work Phone: [phone]-Vcescoz-[place] Work Phone: Procedures DateProcedureProcedure DetailPerforming ClinicianStart: 84-58-1900QE OB BPP W NON-STRESSKristina Elsa TEXTILE SUPERVISOR Work Phone: Start: 64-83-7948Mpzbx dip stick/tablet rgnt non-auto w/o micrscpCorey Kiesha DO Work Phone: Start: 22-51-5471TX OB BPP W NON-STRESSKristina Elsa TEXTILE SUPERVISOR Work Phone: Start: 67-92-3738VE OB BPP W NON-STRESSKristina Elsa TEXTILE SUPERVISOR Work Phone: Start: 01-74-4307Vbxmb dip stick/tablet rgnt non-auto w/o micrscpCorey Kiesha DO Work Phone: Start: 97-32-3732LCB BUNCorey Kiesha DO Work Phone: Start: 36-19-5072ELW URIC ACIDCorey Kiesha DO Work Phone: Start: 30-30-3342AFO ALTCorey Kiesha DO Work Phone: Start: 11-30-5466VGD ASTCorey Kiesha DO Work Phone: Start: 03-46-4572DCX CREATININECorey Kiesha DO Work Phone: Start: 37-17-7838AWC URINE T PROTEIN CREAT RATIOCorey Kiesha DO Work Phone: Start: 25-43-3051Tvhpz dip stick/tablet rgnt non-auto w/o micrscpKristina Elsa TEXTILE SUPERVISOR Work Phone: Start: 42-54-2435HTK TOTAL PROTEIN 24 HOUR URINE Generic External Data ProviderStart: 31-14-0225VW OB BPP W NON-STRESS Steph Elsa TEXTILE SUPERVISOR Work Phone: Start: 94-20-8996QGT URINE T PROTEIN CREAT RATIO Generic External Data ProviderStart: 18-82-1349TQK CBC WITH AUTO DIFFGeneric External Data ProviderStart: 67-12-3481Cbmye dip stick/tablet rgnt non-auto w/o micrscpKristina Elsa TEXTILE SUPERVISOR Work Phone: Start: 84-80-8419Ccqnzhzx identified in Urine by CultureGeneric External Data ProviderStart: 39-11-3601Xeiruma quantitative blood xcpt reagent stripNot In System Ref ProvStart: 59-93-4976ZXACIJ HOUR GLUCOSE TOLERANCE 100 GM LOADNot In System Ref ProvStart: 79-67-0010Iocef dip stick/tablet rgnt non-auto w/o micrscpCorey Kiesha DO Work Phone: Start: 49-84-6939BQR 1H POST 50G LOADNot In System Ref ProvStart: 86-48-5369UAQ, SERUM, OPEN SPINA BIFIDACorey Kiesha DO Work Phone: Start: 36-91-5330Hlkex dip stick/tablet rgnt non-auto w/o micrscpCorey Kiesha DO Work Phone: Start: 34-35-3749UYPIZHNTV VAGINITIS (HTRX)Nathan Kiesha DO Work Phone: Start: 68-66-3177Zkcxr dip stick/tablet rgnt non-auto w/o micrscpCorey Kiesha DO Work Phone: Start: 88-34-1014Yqsek dip stick/tablet rgnt non-auto w/o micrscpCorey Kiesha DO Work Phone: Start: 61-90-6766Svomjxkm screenMadhuri Monroy MD Work Phone: Start: 42-97-5089Opak scrn 1+ class nonchromoNot In System Ref ProvStart: 15-38-8969Pmwcpoipsu glycosylated n6vRrbro R Kiesha DO Work Phone: Start: 53-60-4508Ewoicnvtg c antibodyNot In System Ref ProvStart: 97-63-5963XLO 1&2 AB/AG SCREEN (P24 AG)Not In System Ref ProvStart: 86-10-7753Vgmo ia hepatitis b surface antigenNot In System Ref ProvStart: 29-62-9976RFCK AND SCREENNot In System Ref ProvStart: 32-44-4536NZC TESTCorey Kiesha DO Work Phone: Start: 21-15-1814Jnwys dip stick/tablet rgnt non-auto w/o micrscpCorey Kiesha DO Work Phone: Start: 08-11-6404CX OB TRANSVAGINALCorey Kiesha DO Work Phone: Start: 12-37-0481PUT,APTIMA HPV,AGE GDLNCorey Kiesha DO Work Phone: Start: 09-96-1327Aadegdxkksk observation [Identifier] in Cervix by Cyto stainCorey Kiesha DO Work Phone: Start: 52-36-4173HUL 12-LEADCorey Kiesha DO Work Phone: Start: 00-39-1472VE PELVIS W/ TRANSVAGINALCorey Kiesha DO Work Phone: Start: 15-50-9624Jqwt cerv/vag auto thin layer prep mnl screenCorey Kiesha DO Work Phone: Start: 23-66-8751Kbh pelvis w/o & w/contrast material Charlene Billow DO Work Phone: Start: 81-57-0747Ohxfg count platelet automatedMichael O'Cormier BUSINESS INTELLIGENCE ARCHITECT - FACILITY SERVICE ASSOCIATE Work Phone: Start: 56-32-3327Tpnkn count platelet automatedCassie Constantino MD Work Phone: Start: 01-91-1764Dzfhw streptococcus group b amplified probe tqCassie Constantino MD Work Phone: Start: 61-24-8374EZP and Rh group [Type] in Blood by Confirmatory Carmine Constantino MD Work Phone: Start: 66-60-0350Zrvxo typing serologic Cait Constantino MD Work Phone: Start: 11-38-9016Uykibjkeolxlv metabolic panelCassie Constantino MD Work Phone: Start: 89-08-2464Ixgimtif hiv-1&hiv-2 single result Megadyne [id number]: 72-90-8473Qnvc ia hepatitis b surface antigenMegaalexis [id number]: 07-21-3183TqwkfgnprnVABCUAD EDWARD Start: 08-30-2020 End: 16-44-2381Zkkfwwvs screenComment on above:Performed By: #### T+S #### [facility] [address] [place], [place] [address]Zhxxz Comment: TEST TYPE + SCREEN WAS CANCELLED, 08/30/2020 13:37 JOP.Performed By: #### T+S #### [facility] [address] [place], [place] [address]Fkjwl: 80-37-7628AFOZX SHOULDER OPEN DISTAL CLAVICLE EXCISION 1[facility]ERON LOVESouth[facility] Comment on above:RIGHT SHOULDER OPEN DISTAL CLAVICLE EXCISIONRIGHT SHOULDER OPEN DISTAL CLAVICLE EXCISIONAppendectomyCAMERON LOVESouthwest Sun Solar betamethasone (substance)Fredi WILLIAN comment on above:Dose #1: 11/27/22ColonoscopyCAMERON EDWARD Endoscope, device (physical object)[place] LaparoscopyTeri Cahu MD Work Phone: Plan of Treatment DateCare ActivityDetailAuthorStart: 05-43-7969Yswbpm Vaccines (1 of 2)Zoster Vaccines (1 of 2)[facility] Cent[facility] HealthStart: 31-35-6606Atfzcaqxa for malignant neoplasm of cervixNOMS HealthcareStart: 86-80-2131Mcttbnclk for malignant neoplasm of cervixPap SmearNOMS HealthcareStart: 25-68-4095Fvufo BMI ScreeningAdult BMI ScreeningProSt. Vincent Hospitalca Health SystemStart: 08-36-6078Vhchpou ScreeningTobacco ScreeningProSt. Vincent Hospitalca Health SystemStart: 32-21-4289Lzdti BMI ScreeningAdult BMI ScreeningProSt. Vincent Hospitalca Health SystemStart: 49-41-5045Gznbz BMI ScreeningAdult BMI ScreeningProMedica Health SystemStart: 11-03-2025 End: 06-98-3171Anmiiwm encounter jeavaabav29/09/2025 2:30 PM EST Office Visit Maternal- Medicine at [facility] [address] [place] [phone] Chivo Springer PA-C [address] [facility] [address] [address] [facility]: 10-14-2025 End: 38-26-5254Sahmzas encounter urwoammhb60/19/2025 3:30 PM EST Routine [facility] Patti YOUNGN [address] [place], [id number] Nathan Pop DO [address] [place] [address] NOMShalonda IYERGYNStart: 10-08-2025 End: 87-57-4953Fhmvxpo encounter jopjhshwn51/13/2025 8:00 AM EST Appointment Maternal Medicine [place] [address] [facility] [address] [place] [phone] Medicine SaffellStart: 10-06-2025 End: 07-98-7452Pmlxwekumonv consultation with vibalmm2310/06/2025 2:30 PM EST Telemedicine Maternal- Medicine at [facility] [address] [place] [id number] Chivo Springer PA-C [address] [facility] [address] [address] [facility] 10-05-2025 End: 30-01-2492Mzpjkwq encounter lfqrfomsn98/10/2025 3:00 PM EST Office Visit Maternal- Medicine at [facility] [address] [place] [phone] Chivo Springer PA-C [address] [facility] [address] [address] [facility] 10-05-2025 End: 12-97-6539Gmidwyhphyon consultation with wlraion2110/05/2025 3:00 PM EST Telemedicine Maternal- Medicine at [facility] [address] [place], [place] [id number] Chivo Springer PA-C [address] [address] [facility]: 11-09-3100YNH ( or age 60+ yrs) (1 - Risk 1-dose series)RSV ( or age 60+ yrs) (1 - Risk 1-dose series)[facility]: 09-30-2025 End: 62-97-1617Diklvow encounter procedureNOMS Patti YOUNGNComment on above: ArrivedStart: 09-16-2025 End: 32-04-1867XS biophysical profile w non stress testUS biophysical profile w non stress test Imaging Routine Gestational diabetes mellitus (GDM),antepartum, gestational diabetes method of control unspecified ([facility]) Expected: 09/16/2025, Expires: 09/16/2026NOMS HealthcareComment on above:Expected: 09/16/2025, Expires: 09/16/2026Start: 09-15-2025 End: 77-65-5556Qvhcimt encounter /21/2025 2:50 PM EDT Routine NOMShalonda MOODY [address] [place], [id number] Zenobia Gutierrez PA [address] [place] [address] NOMShalonda Izaguirrert: 09-10-2025 End: 58-07-6248Oztvxezmlmin consultation with hpuontq1009/10/2025 11:00 AM EDT Telemedicine Maternal Medicine Saffell [address] [phone] Madhuri Monroy MD [address] [facility], [address] [place] [address] Maternal Medicine SaffellStart: 09-10-2025 End: 36-32-8558Olkxdlt encounter eyaacfjme47/16/2025 9:45 AM EDT Appointment Maternal Medicine [place] [address] [phone] Medicine [facility]: 09-07-2025 End: 68-57-2966Ulpkuba encounter procedureNOMS BCP OBStart: 09-04-2025 End: 62-60-7034Oiktzwm encounter bwflacweo34/10/2025 3:00 PM EDT Office Visit Maternal- Medicine at [facility] [address] [facility] [place] [phone] Mine Denise MD [address] [facility], [address] [place] [address] [facility]: 09-03-2025 End: 66-29-5443Zocgyyy encounter procedureNOMS [place] OBGYNComment on above: [facility] CenterStart: 08-27-2025 End: 97-26-8987Airxkhc encounter kffkpfaeh70/02/2025 3:20 PM EDT Routine NOMShalonda [place] OBGYN [address] [place], [phone] Steph Keane NP [address] [place] [address] NOMS Patti Izaguirrert: 08-27-2025 End: 71-77-6623Frjvhmx aminotransferase [Enzymatic activity/volume] in Serum or PlasmaALT Lab Routine induced hypertension, antepartum (HHS-HCC) Expected: 08/27/2025 (Approximate), Expires: 08/27/2026[facility] HealthcareComment on above:Expected: 08/27/2025 (Approximate), Expires: 08/27/2026Start: 08-27-2025 End: 45-95-2986Cceixalll aminotransferase [Enzymatic activity/volume] in Serum or PlasmaAST Lab Routine induced hypertension, antepartum (HHS-HCC) Expected: 08/27/2025 (Approximate), Expires: 08/27/2026[facility] HealthcareComment on above:Expected: 08/27/2025 (Approximate), Expires: 08/27/2026Start: 08-27-2025 End: 35-59-3331XEZ W Auto Differential panel - BloodCBC and differential Lab Routine induced hypertension, antepartum (HHS-HCC) Expected: 12/2024 (Approximate), Expires: 08/27/2026[facility] HealthcareComment on above: Expected: 08/27/2025 (Approximate), Expires: 08/27/2026art: 08-27-2025 End: 82-46-4663Vvjztkkpso [Mass/volume] in Serum or PlasmaCreatinine Lab Routine induced hypertension, antepartum (HHS-HCC) Expected: 08/27/2025 (Ap proximate), Expires: 08/27/2026[facility] Work Phone: comment on above:Expected: 08/27/2025 (Approximate), Expires: 08/27/2026Start: 08-27-2025 End: 99-34-1054Uojzxxw dehydrogenase [Enzymatic activity/volume] in Serum or Plasma by Lactate to pyruvate reactionLactate dehydrogenase Lab Routine induced hypertension, antepartum (HHS-HCC) Expected: 08/27/2025, Expires: 08/27/2026[facility] HealthcareComment on above:Expected: 08/27/2025, Expires: 08/27/2026Start: 08-27-2025 End: 29-54-1856Lopjxnt, urine, 24 hourProtein, urine, 24 hour Lab Routine induced hypertension, antepartum (HHS-HCC) Expected: 08/27/2025 (Approximate), Expires: 08/27/2026NOMI HealthcareComment on above:Expected: 08/27/2025 (Approximate), Expires: 08/27/2026Start: 08-27-2025 End: 66-34-2454Sp and pttPt and ptt Lab Routine induced hypertension, antepartum (HHS-HCC) Expected: 08/27/2025, Expires: 08/27/2026[facility] Comment on above:Expected: 08/27/2025, Expires: 08/27/2026Start: 08-27-2025 End: 96-99-6921Cbvpj [Mass/volume] in Serum or PlasmaUric acid Lab Routine induced hypertension, antepartum (HHS-HCC) Expected: 08/27/2025 (Bouchra roximate), Expires: 08/27/2026N[facility] HealthcareComment on above:Expected: 08/27/2025 (Approximate), Expires: 08/27/2026Start: 08-27-2025 End: 31-48-1672Syqx nitrogen [Mass/volume] in Serum or PlasmaBUN Lab Routine induced hypertension, antepartum (HHS-HCC) Expected: 08/27/2025, Expires:08/27/2026N[facility] HealthcareComment on above:Expected: 08/27/2025, Expires: 08/27/2026Start: 08-27-2025 End: 63-39-9930EZ biophysical profile w non stress testUS biophysical profile w non stress test Imaging Routine induced hypertension, antepartum ([facility]) Gestational diabetes mellitus (GDM) in second trimester, gestational diabetes method of control unspecified ([facility]) Expected: 08/27/2025 (Approximate), Expires: 02/25/2026[facility] HealthcareComment on above:Expected: 08/27/2025 (Approximate), Expires: 02/25/2026Start: 08-24-2025 End: 74-70-2518kytddhnglm81/29/2025 1:30 PM EDT Support Visit Maternal- Medicine at [facility] [address] [facility] [place] [phone] Teena Sarmiento, RN [address] [facility] [address] [place] [address] Kerline Augustin, RD [address] [facility], [address] [place] [address] [facility]: 08-24-2025 End: 35-05-9495Wyqdwrw encounter vtpohygqs85/29/2025 11:00 AM EDT Office Visit NOMS BCP OB [address] [place] [phone] Nathan Pop, DO [address] [place] [address] NOMS BCP OBStart: 08-12-2025 End: 90-83-3975Jcghoib encounter mlsxsuocj49/17/2025 2:40 PM EDT Routine NOMShalonda YOUNGN [address] [place], [id number] Nathan Pop, DO [address] [place] [address] NOMShalonda [place] OBGYNStart: 08-12-2025 End: 93-35-4524Whlxhadnten of glucose 3 hours after glucose challenge for glucose tolerance testGlucose tolerance, 3 hours Lab Routine Elevated glucose tolerance test Expected: 08/12/2025 (Approximate), Expires: 08/12/2026[facility] Work Phone: comment on above:Expected: 08/12/2025 (Approximate), Expires: 08/12/2026Start: 08-12-2025 End: 35-29-2821Bhrfsvnsmakh / ancillary services /17/2025 2:00 PM EDT Ancillary Procedure NOMS Patti YOUNGN [address] [place] [address] [place] [address] LSQH Patti OBGYNStart: 07-31-2025 End: 50-11-0420KKX W Auto Differential panel - BloodCBC and differential Lab Routine Hypertension, unspecified type Wellness examination Expected: 07/31/2025 (Approximate), Expires: 08/29/2025[facility] Work Phone: Comment on above:Expected: 07/31/2025 (Approximate), Expires: 08/29/2025Start: 07-31-2025 End: 29-39-1479Tbsyisblqujaz metabolic 2000 panel - Serum or PlasmaComprehensive metabolic panel Lab Routine Hypertension, unspecified type Wellness examination Expected: 07/31/2025 (Approximate), Expires: 08/29/2025[facility] HealthcareComment on above:Expected: 07/31/2025 (Approximate), Expires: 08/29/2025Start: 07-31-2025 End: 88-29-2515Mouzv 1996 panel - Serum or PlasmaLipid panel Lab Routine Wellness examination Lipid screening Expected: 07/31/2025 (Approximate), Exp ires: 08/29/2025N[facility] HealthcareComment on above:Expected: 07/31/2025 (Approximate), Expires: 08/29/2025Start: 07-30-2025 End: 50-09-3216Onkmcxu encounter ybpetqpvi19/04/2025 3:40 PM EDT Office Visit [facility] [address] [place] [address] [place] [address] Eliceo Beltran DO [address] [place] [address] [place] [address] [facility] 230Comment on above:ArrivedStart: 71-45-9057RHVUJ-19 Vaccine ( season)COVID-19 Vaccine ( season)[facility] HealthcareStart: 07-27-2025 Influenza vaccinationNOMI HealthcareStart: 07-15-2025 End: 04-07-8661Qafeyxa encounter buzeanfow75/20/2025 3:30 PM EDT Routine NOMS Patti OBGYN [address] [facility] [address] [facility] [address] [place], [id number] Nathan Pop, [address] [place] [address] NOMS Patti OBGYNStart: 07-15-2025 End: 76-44-1914Fqmfxjkjipph / ancillary services kyetyqbjni25/20/2025 2:30 PM EDT Ancillary Procedure NOMS Patti OBGYN [address] [facility] [place] [phone] NOMS [place] OBGYNStart: 07-15-2025 End: 13-89-9187WPE panel - Blood by Automated countCBC Lab Routine Diabetes mellitus screening Expected: 07/15/2025 (Approximate), Expires: 07/15/2026[facility] Work Phone: comment on above:Expected: 07/15/2025 (Approximate), Expires: 07/15/2026Start: 07-15-2025 End: 04-74-1426Lpktuuvcpyr of glucose 1 hour after glucose challenge for glucose tolerance testGlucose tolerance, 1 hour Lab Routine Diabetes mellitus screening Expected: 07/15/2025 (Approximate), Expires: 07/15/2026N[facility] HealthcareComment on above:Expected: 07/15/2025 (Approximate), Expires: 07/15/2026Start: 06-22-2025 End: 60-71-5404Ozpryza encounter bjzrwuycx08/28/2025 2:10 PM EDT Routine NOMS Patti OBGYN [address] [facility] [facility] [address] [place], [id number] Nathan Pop, [address] [place] [address] ArrivedNOMS Patti OBGYNComment on above:ArrivedStart: 06-22-2025 End: 17-84-9654Mggce fetoprotein, maternalAlpha fetoprotein, maternal Lab Routine Second trimester ([facility]) 17 weeks gestation of ([facility]) Expected: 06/22/2025 (Approximate), Expires: 12/23/2025[facility] Healthcare Comment on above:Expected: 06/22/2025 (Approximate), Expires: 12/23/2025Start: 06-22-2025 End: 42-38-3909NQ for pregnancyUS OB 14+ weeks anatomy scan Imaging Routine Screening, , for anatomic survey ([facility]) Expected: 06/22/2025, Expires: 09/22/2025[facility] Work Phone: comment on above:Expected: 06/22/2025, Expires: 09/22/2025Start: 05-25-2025 End: 54-41-5853Cetodmo encounter naniqyofi82/30/2025 2:40 PM EDT Routine NOMS BCP OB [address] [facility] [place] [phone] Nathan Pop, DO [address] [facility] [place] [address] NOMS BCP OBStart: 05-01-2025 End: 38-84-7621KLZ/RhABO/Rh Lab Routine Missed menses , unspecified gestational age Expected: 05/01/2025 (Approximate), Expires: 05/01/2026[facility] HealthcareComment on above:Expected: 05/01/2025 (Approximate), Expires: 05/01/2026Start: 05-01-2025 End: 24-93-0135Lhats type and Indirect antibody screen panel - BloodType and screen Lab Routine Missed menses , unspecified gestational age Expected: 05/01/2025 (Approximate), Expires: 05/01/2026[facility] Healthcare Work Phone: comment on above:Expected: 05/01/2025 (Approximate), Expires: 05/01/2026Start: 05-01-2025 End: 76-10-5097Lkkgz of abuse panel - Urine by Screen methodRapid drug screen, urine Lab Routine , unspecified gestational age Encounter for supervision of normal first in first trimester Expected: 05/01/2025 (Approximate), Expires: 05/01/2026NOMS HealthcareComment on above:Expected: 05/01/2025 (Approximate), Expires: 05/01/2026Start: 01-19-2025 End: 99-10-6425Mocgcdz encounter procedureNOMS BCP OBComment on above:Arrived Start: 01-19-2025 End: 91-01-7589QryzclfybbewPruogxivubhd Lab Routine Pain in female genitalia on intercourse Endometriosis Expected: 01/19/2025(Approximate), Expires: 01/19/2026 [facility] Work Phone: comment on above:Expected: 01/19/2025 (Approximate), Expires: 01/19/2026Start: 08-18-2024 End: 87-60-9860Sqnifvr encounter procedureNOMS BCP OBComment on above:Arrived Start: 53-25-9442Iropatvwt vaccinationSt. Rita's Hospitaltart: 07-22-2024 End: 94-25-7385RV for pregnancyUS PELVIS-TRANSVAG IF INDICATED Imaging Routine Dysmenorrhea, unspecified Expected: 07/22/2024 (Approximate), Expires: 07/22/2025[facility] Work Phone: comment on above:Expected: 07/22/2024 (Approximate), Expires: 07/22/2025Start: 06-23-2024 End: 07-55-2133Rtyiufm encounter ikhmpjbtl15/29/2024 10:30 AM EDT Office Visit Obstetrics/Gynecology [address] [address] Charlene Rodriguez DO [address] [place] [address] 2 WEEK POST OPObstetrics/GynecologyComment on above:2 WEEK POST OPStart: 05-27-2024 End: 60-29-4589Aoshkubbs to same day surgery xbmkuj8005/27/2024 7:30 AM EDT - 05/27/2024 9:30 AM EDT Surgery [facility] [address] [place] [address] Charlene Rodriguez, DO [address] [place] [address] LAPAROSCOPY FULGURATION OR EXCISION OF LESIONS OF THE OVARY PELVIC VISCERA OR PERITONEAL SURFACE BY ANY METHODKettering Memorial Hospital SurgeryComment on above:LAPAROSCOPY FULGURATION OR EXCISION OF LESIONS OF THE OVARY PELVIC VISCERA OR PERITONEAL SURFACE BYANY METHODStart: 05-27-2024 End: 30-34-1638Qqye fulg/exc ovary viscera/peritoneal surfaceLAPAROSCOPY FULGURATION OR EXCISION OF LESIONS OF THE OVARY PELVIC VISCERA OR PERITONEAL SURFACE BYANY METHOD Endometriosis 05/27/2024 7:30 AM EDTME ORStart: 05-27-2024 Subsequent hospital visit by guwptelup07/02/2024 7:30 AM EDT Hospital Encounter [facility] [address] [place] [address] Charlene Rodriguez, DO [address] [place] [address] [phone] (F ax) Endometriosis [N80.9][facility] SurgeryComment on above:Endometriosis [N80.9]Start: 76-91-2827Ktuywawdm vaccinationInfluenza Vaccine (#1)[facility] HealthcareComment on above:Postponed from 07/27/2023 (Patient Refused)Start: 05-20-2024 End: 30-04-7027lmwbtzjnuv65/25/2024 10:00 AM EDT [facility] QA ENGINEER UROL SHER[facility]LL [facility] [address] [address] [place], Uro Hamper Maker Machine Nurse [address] [address] RN GLENNGYN UROL SHERRILL MOBComment on above:RN TEACHINGStart: 04-22-2024 End: 08-10-1914Yixydns encounter tvplndaur47/28/2024 9:00 AM EDT Office Visit NOMS [facility] [address] [place] [address] Denny Rodríguez MD [address] [place] [address] NOMS SEP FMStart: 19-67-0199QMhP,Tdap and Td Vaccines (7 - Td or Tdap)DTaP,Tdap and Td Vaccines (7 - Td or Tdap)[facility] SystemStart: 57-87-3491SVyW/Tdap/Td Vaccines (7 - Td or Tdap)DTaP/Tdap/Td Vaccines (7 - Td or Tdap)[facility] HospitalStart: 73-35-3894Shhdb microalbumin profileDTaP,Tdap,Td Vaccine (7 - Td or Tdap)[facility]: 01-30-2024 End: 90-68-7768Wwgdsou encounter hqvbezyxg62/06/2024 11:10 AM EST Consult NOMS [facility] OB [address] [facility] [place] [address] Nathan Pop DO [address] [place] [address] N[facility]S [facility] OBStart: 01-15-2024 End: 75-16-6141Zvgtbyengkua / ancillary services izcxaqnlgj43/20/2024 8:00 AM EST Ancillary Procedure NOMS [facility] [address] [place] [address] NOMS [facility] OBStart: 01-10-2024 End: 89-28-4408YF for pregnancyUS PELVIS-TRANSVAG IF INDICATED Imaging Routine Pelvic pain in female Expected: 01/10/2024 (Approximate), Expires: 01/10/2025 [facility] Work Phone: comment on above:Expected: 01/10/2024 (Approximate), Expires: 01/10/2025Start: 03-72-0082Wmknuoxopl Health ScreeningBehavioral Health ScreeningSt. Rita's Hospitaltart: 10-92-3772Pjrpukkzih AssessmentDepression AssessmentCleUniversity Hospitals Portage Medical Centertart: 02-36-9818Enkga-19 Vaccine ( season) Covid-19 Vaccine ( season)[facility]: 28-97-9953Ndeybelsq vaccinationSt. Rita's Hospitaltart: 69-48-4457RPJFXNWYUI ASSESSMENTDEPRESSION ASSESSMENTSt. Rita's Hospitaltart: 91-68-9326Fcvhlkaqb vaccinationInfluenza Vaccine (#1)[facility] HospitalStart: 93-40-5679XLW, Provider: Charlene Rodriguez, Status: Pen, Time: 1:30 PMFUV, Provider: Charlene Rodriguez, Status: Pen, Time: 1:30 PM JW-BBYED-Vfblog 320 Work Phone: Start: 18-45-0975RUR, Provider: Charlene Rodriguez, Status: Pen, Time: 11:15 AMFUV, Provider: Charlene Rodriguez, Status: Pen, Time: 11:15 AM PN-DBZDO-Zbhasj 320 Work Phone: Start: 52-01-5554XWG TESTINGPAP TESTINGSt. Rita's Hospitaltart: 20-65-0232Etuuhseeo for malignant neoplasm of cervixSt. Rita's Hospitaltart: 34-92-2488BUpB,Tdap and Td Vaccines (1 - Tdap)DTaP,Tdap and Td Vaccines (1 - Tdap)[facility]: 64-95-4421WHbG/Tdap/Td Vaccines (1 - Tdap)DTaP/Tdap/Td Vaccines (1 - Tdap)[facility] HospitalStart: 27-17-0718Zismq microalbumin profileSt. Rita's Hospitaltart: 20-05-7116Znwyi BMI Follow Up Plan Adult BMI Follow Up PlanFrye Regional Medical Centertart: 62-11-9985Qcnla BMI ScreeningAdult BMI ScreeningFrye Regional Medical Centertart: 06-77-6676NOGURB PCP TEAM CHRONIC DISEASE VISITANNUAL PCP TEAM [facility]ITP[facility] Start: 56-29-3020XT CONTROLLED (<130/80)BP CONTROLLED (<130/80)[facility] Start: 41-89-0237LDKWUXYFF C SCREENINGHEPATITIS C SCREENINGPike Community Hospital Start: 55-01-3870Atvmvpsiu C screeningHepatitis C ScreeningPike Community Hospital Start: 65-27-8166QYR SCREENINGHIV SCREENINGSt. Rita's Hospitaltart: 03-56-7353GYZ screeningHIV ScreeningSt. Rita's Hospitaltart: 15-39-2816Lrncsek of varicella vaccinationVaricella Vaccines (1 of 2 - 13+ 2-dose series)[facility] HospitalStart: 37-10-6785Ikuahluhtu ScreeningDepression ScreeningFrye Regional Medical Centertart: 47-53-9753Vzzeqbo ScreeningTobacco ScreeningFrye Regional Medical Centertart: 25-71-1751Bcatlarfl vaccinationVaricella Vaccines (1 of 2 - 2-dose childhood series)[facility] HospitalStart: 88-15-8884CTU Vaccines (1 of 1 - Standard series)MMR Vaccines (1 of 1 - Standard series)[facility] HospitalStart: 68-08-2191Oblnzsblh vaccinationVaricella Vaccines (1 of 2 - 2-dose childhood series)[facility] Start: 48-87-0897YJZJT-19 VACCINE (#1)COVID-19 VACCINE (#1)[facility] Start: 21-47-6001AXRJHWIKX B (1 of 3 - 3-dose series)HEPATITIS B (1 of 3 - 3- dose series)[facility]: 99-24-2641Lixkojluo B Vaccine (1 of 3 - 3- dose series)Hepatitis B Vaccine (1 of 3 - 3-dose series)[facility]: 07-14-2051Snmpqzqwa B Vaccines (1 of 3 - 3-dose series)Hepatitis B Vaccines (1 of 3 - 3-dose series)[facility] HospitalStart: 61-50-2033Ztiko panelLipid PanelSumma HealthBacteria identified in Urine by CultureUrine culture Microbiology Routine Missed menses Ordered: 05/01/2025[facility] HealthcareComment on above:Ordered: 05/01/2025BC W Auto Differential panel - BloodCBC and differential Lab Routine Missed menses , unspecified gestational age Ordered: 05/01/2025[facility] HealthcareComment on above:Ordered: 05/01/2025ytology Cervical or vaginal smear or scraping studyPap Smear Pathology and Cytology Routine Well woman exam with routine gynecological exam Ordered: 08/18/2024[facility] Work Phone: comment on above:Ordered: 08/18/2024Hemoglobin A1c/Hemoglobin.total in BloodHemoglobin A1c Lab Routine Missed menses , unspecified gestational age Ordered: 05/01/2025[facility] HealthcareComment on above: Ordered: 05/01/2025Hepatitis B virus surface Ag [Presence] in Serum or Plasma by ImmunoassayHepatitis B surface antigen Lab Routine Missed menses , unspecified gestational age Ordered: 05/01/2025[facility] HealthcareComment on above: Ordered: 05/01/2025Hepatitis C virus Ab [Presence] in Serum or Plasma by ImmunoassayHepatitis C antibody Lab Routine Missed menses , unspecified gestational age Ordered: 05/01/2025[facility] HealthcareComment on above:Ordered: 05/01/2025HIV-1/HIV-2 antigen/antibody combination immunoassayHIV-1 and HIV-2 antibodies Lab Routine Missed menses , unspecified gestational age Ordered: 05/01/2025[facility] HealthcareComment on above:Ordered: 05/01/2025 End: 12-24-4814Gnu pelvis w/o & w/contrast materialMRI FEMALE PELVIS WO/W IVCON Radiology Routine Pelvic and perineal pain 1 Occurrences starting 05/17/2023 until 4C[facility] Work Phone: Comment on above:1 Occurrences starting 05/17/2023 until 4Reagin Ab [Presence] in Serum by RPRRPR Lab Routine Missed menses , unspecified gestational age Ordered: 05/01/2025[facility] Comment on above:Ordered: 05/01/2025Rubella antibody, IgGRubella antibody, IgG Lab Routine Missed menses , unspecified gestational age Ordered: 04/2025[facility] HealthcareComment on above:Ordered: 05/01/2025 End: 24-04-5365KbneacSSM Health [facility] Work Phone: Comment on above:Once (Lab) for 1 Occurrences starting 11/30/2022 until 11/30/2022, 1 completed End: 81-73-9117AA for pregnancyUS OB follow up transabdominal approach Imaging Routine Gestational diabetes mellitus (GDM), antepartum, gestational diabetes method of control unspecified ([facility]CC) every 4 weeks for 2 Occurrences starting 09/16/2025 until 12/17/2025[facility] Work Phone: comment on above:every 4 weeks for 2 Occurrences starting 09/16/2025 until [facility] Immunizations Immunization DateImmunizationNotesCare HxbdvzzuKqnmejiv43-62-1733pczotmbxu A vaccine, adult dosageCorey Kiesha DO Work Phone: [facility] HospitalGdxfjelyfr97-04-2908cmxvt papilloma virus vaccine, quadrivalentCorey Kiesha DO Work Phone: [facility] HospitalHwwbcutiuu18-27-4499wezwgohhb, seasonal, injectable, preservative freeCorey Kiesha DO Work Phone: [facility] HospitalXkpizwqubn66-02-2598gdhfbtzdd virus vaccine, unspecified formulationGina Moschella DO Work Phone: [facility] HospitalTihkie30-33-8919zlfwv papilloma virus vaccine, quadrivalentCorey Kiesha DO Work Phone: [facility] HospitalBgrdwiftaw09-99-5399iamoxoglg A vaccine, adult dosageCorey Kiesha DO Work Phone: [facility] HospitalGtesscfbbs62-62-0583lwmdr papilloma virus vaccine, quadrivalentCorey Kiesha DO Work Phone: [facility] HospitalVnbiqyaeco13-51-7071nucxagb toxoid, reduced diphtheria toxoid, and acellular pertussis vaccine, adsorbedCorey Kiesha DO Work Phone: [facility] HospitalKrbahreltp34-44-2986acwwvnzdvctzz polysaccharide (groups A, C, Y and W-135) diphtheria toxoid conjugate vaccine (MCV4P)Nathan Kiesha DO Work Phone: [facility] HospitalBvromjahze71-58-6192qxoyqnkvhd, tetanus toxoids and acellular pertussis vaccine, unspecified formulationCorey Kiesha DO Work Phone: [facility] HospitalGvgdvridaq94-82-4507uaahoup, mumps and rubella virus vaccineCorey Kiesha DO Work Phone: [facility] HospitalCsobjzynwx82-09-4347csgunqkuaf vaccine, inactivatedCorey Kiesha DO Work Phone: [phone] HospitalGvktkqltjk61-63-9318jywxfrjgqx, tetanus toxoids and acellular pertussis vaccine, unspecified formulationCorey Kiesha DO Work Phone: [phone] HospitalDxvajlakmb65-21-5499FFJ-Qncwgaoypzv influenzae type b conjugate vaccineCorey Kiesha DO Work Phone: [phone] HospitalCxjlaqzdmp42-56-1581yzeszshbd B vaccine, pediatric or pediatric/adolescent dosageCorey Kiseha DO Work Phone: [phone] HospitalFmeomzgshy73-83-7248czngcyg, mumps and rubella virus vaccineCorey Kiesha DO Work Phone: [phone] [place], [place] [address]Tdepulrarr18-82-3307edikgqxau poliovirus vaccine, live, oralCorey Kiesha DO Work Phone: [phone] [place], [place] [address]Siavleliio65-70-8545PKK-Ybowcezeukw influenzae type b conjugate vaccineCorey Kiesha DO Work Phone: [phone] [address] [place], [place] [address]Ajluqkibvf03-02-0637bsjamttru B vaccine, pediatric or pediatric/adolescent dosageCorey Kiesha DO Work Phone: [phone] [place], [place] [address]Npcrawucho44-96-1620cfnmlxqhu poliovirus vaccine, live, oralCorey Kiesha DO Work Phone: [phone] [place], [place] [address]Rydcgqwqqy14-21-4717KSR-Tbdpydrgqxq influenzae type b conjugate vaccineCorey Kiesha DO Work Phone: [phone] [place], [place] [address]Oxtxvscmth33-79-5999getysovwo B vaccine, pediatric or pediatric/adolescent dosageCorey Kiesha DO Work Phone: [phone] [place], [place] [address]Qagmvtfwzm44-76-5926hpwfvdsun poliovirus vaccine, live, oralCorey Kiesha DO Work Phone: [phone] HealthcareNEGATED: Highlighted row has not occurred!76-08-6893utlvksr, mumps and rubella virus vaccineKatcarlos Ryder DO Work Phone: [facility] HealthComment on above:Deferred: Other - Rubella ImmuneNEGATED: Highlighted row has not occurred!90-28-6880yimursr toxoid, reduced diphtheria toxoid, and acellular pertussis vaccine, janetKathe Ryder DO Work Phone: [facility] HospitalComment on above:Deferred: No longer needed - Refused Tdap vaccine. Payers DatePayer CategoryPayerPolicy [id number] Managed Care - [facility] [id number] [facility]ICA[facility] [id number] [id number] [id number]010.23556-22-2779Fxfddtg44-71-7509 JvqdcudAKJ613W6947388-74-5031Kvahgfv Health Insurance [id number]63[id number] 201[id number] Health [id number] 2..1.461259.3.579.2.174 [id number] 2..1.029786.3.57[id number] 2..1.195652.3.57[id number] 2..1.358337.3.57[id number] 2..1.391687.3.579.2.68237-08-6755Gtdfgvw78565834 2..1.929501.3.579.2.05287-34-5133Lpadamt17188543 2..1.027309.3.579.2.33463-86-5221Yefdwnv21383958 2..1.571660.3.579.[id number] 2.840.1.276089.3.57[id number] 2.0.1.876922.3.579.2.776034-07-0099Uwxuhva75731382 2.840.1.896037.3.57[id number] 2.0.1.240811.3.579.2.[id number] 2..1.395875.3.579.[id number] 2.0.1.194500.3.579.2.438430-02-0161Kpzjzsr48562473 2..1.906294.3.579.2.649665-54-4605Vfznmbn67630227 2..1.910862.3.57[id number] 2..1.766835.3.579.2.167513-72-6797Xmyjwst71923275 2..1.120749.3.579.2.744897-48-7677Uetmrcb30149399 2..1.032477.3.579.2.480338-12-7050Juqponz35483819 2.0.1.746320.3.579.2.621379-61-0924Jqlwwvd66511293 2..1.609206.3.579.2.378179-00-3913Srwzwbo20078551 2.0.1.033888.3.579.2.834962-86-5219Bdfmarh2332440 2.840.1.043576.3.579.2.894974-05-9032Xrweatg7764985 2..840.1.073012.3.579.2.036458-19-0696Pbcnaix912103553 2..840.1.647082.3.579.2.723805-44-2635Npsjqef812009774 2..840.1.531731.3.57[id number] 2.16.840.1.199840.3.579.2.9350Kzqscvj92727372 2.840.1.024654.3.579.2.531 Social History DateTypeDetailFacilityStart: 01-06-2021 End: 52-34-9295Ipodia uses seat beltAlways uses seat beltNOMS HealthcareStart: 12-10-2018 End: 80-61-5058Xlcwvdq smoking statusNever smoked tobacco (finding)[facility] Hospitaltart: 90-30-9198Gxbciyi smoking statusNeverMercy Health Tiffin Hospitaltart: 01-06-2021 End: 10-91-6293Ypi Assigned At [facility] [employer] Other ToOhio State East HospitalComment on above: denies.Tobacco smoking statusMercy Health Tiffin Hospitaltart: 12-10-2018 End: 40-01-1030Sxzuvkd use and exposureSmokeless tobacco non-userSt. Rita's Hospitaltart: 04-11-2023 End: 77-05-3901Awuhlkt intakeCurrent drinker of alcohol (finding)[facility] Hospitaltart: 36-32-9607Kuipbmm Commentmaybe a few drinks a monthPike Community Hospital Start: 37-94-5871Fyj Assigned At [facility] HealthNot on [facility]iltonum[facility] HealthStart: 01-10-2024 End: 42-35-3701Miehdhu intakeLifetime non-drinker (finding)[facility] HealthWithin the last year, have [...] got money to buy more.Never trueNOMS HealthcareStart: 22-76-2942Oaogpgmdo15QWWI HealthcareStart: 79-81-9515Allpxwk Commentcaffeine: 1-2 cups per day, coffee and popNOMI HealthcareStart: 90-27-7381Npkgyxt SDOH IPV Etzf4Rgxlz HealthStart: 70-28-8038Veqccfp SDOH Housing Places Hwoui9Ojqpl HealthStart: 04-12-2022 [facility] HealthStart: 11-18-2022 End: 24-62-0699Ewzllrug to SARS-CoV-2 (event)Not sureSupaulding county hospital HealthAre you now , , , , never or living with a partner? MarriedNOMS HealthcareDo you feel stress - tense, restless, nervous, or anxious, or unable to sleep at night because yourmind is troubled all the time - these days [OSQ]Only a littleNOMI HealthcareStart: 12-02-2018 End: 92-91-0483QnaLfnhrb (finding)[facility]tart: 86-64-0176Bwe Assigned At [facility] Campustart: 08-19-2025 End: 73-18-3232Twcxxcouk beverage intakeCurrent non-drinker of alcohol (finding) [facility] [employer] [facility] Medical Equipment Procedure CodeEquipment CodeEquipment Original TextEquipment IdentifierDates [id number]: 08-20-2025 End: each by In Vitro route Daily Use to check FSBS four times daily [id number]: 08-20-2025 End: 17-50-8049Ues pen needles to give insulin.[id number]: 09-04-2025 Functional Status QmpyZcvqcbzmeqRrfzjpUtkjzvhn85-24-9382Gxgeh score [AUDIT-C]0 09/10/2025 10:17 AM EDT AshleyDanae Martinez [facility]09-04-2025Patient Health Questionnaire 2 item (PHQ-2) [Reported][facility] HospitalBxtrmovyfg29-93-7277Ougrj score [AUDIT-C]1 12/29/2024 10:25 PM EST Mychart, GenericNOMS Amuvevwcla50-43-5917Iqb often do you have a drink containing alcohol?Monthly or less 12/29/2024 10:25 PM EST Mychart, Generic Monthly or lessNOMS Ufjydymzkt24-18-4949Mvhvmbbanu status Patient does not drink 12/29/2024 10:25 PM EST Mychart, Generic Patient does not drinkNOCarondelet HealthSxjfniddst44-82-1452Hdu often do you have 6 or more drinks on 1 occasion?Never 12/29/2024 10:25 PM EST Mychart, Generic NeverNOMS [facility] 87-42-0340Exhnzyt Health Questionnaire 2 item (PHQ-2) [Reported][facility] 03-38-7583Vperkvjbgj StatusN/[facility]03-08-2023Functional StatusN/[facility]02-04-2023Functional StatusN/[facility]01-02-2023Functional StatusN/[facility] 07-14-2022N/[facility] Clinical Notes 04-18-2022 to 10-06-2025 Note Date & YfbhAmgiJbxnfcdl62-83-4583 History of Present illness Narrative* Chivo Springer PA-C - 10/06/2025 2:30 PM EST Maternal- Medicine Consultation VIDEO Patient is present at work, provider present at [facility] HISTORY OF PRESENT ILLNESS: Juhi Naidu [...] [email or web address] or by fax to: [phone] Chivo Springer PA-C Maternal- Medicine Office phone: [phone] Chivo Springer PA-C 10/06/25 1606 documented in this encounterSt. Rita's Hospital11-10-2025 Miscellaneous Notes* Telephone Encounter - Anjana Davalos RN - 10/05/2025 2:39 PM EST Left message for patient to send in blood sugar logs prior to video visit toady in [facility] at 3 PM. Also, Instructed patient to contact [facility] if unable to keep appointment today at [facility], then to call at [phone] option 1 to reschedule. documented in this encounterSt. Rita's Hospital11-10-2025 Telephone encounter Note* Telephone Encounter - Anjana Davalos RN - 10/05/2025 2:39 PM EST Left message for patient to send in blood sugar logs prior to video visit toady in [facility] at 3 PM. Also, Instructed patient to contact [facility] if unable to keep appointment today at [facility], then to call at [phone]11-05-2025 History of Present illness Narrative* Radha [...] to check FSBS. Blood Glucose Monitoring Suppl (D-ThirstyVIP Glucometer) w/Device kit 1 kit, Does not [...] John San infection GDM (gestational diabetes mellitus) ([facility]) Headache History of menstrual cramps ([facility]) Varicella zoster Visual impairment HISTORY PAST MEDICAL HISTORY SOCIAL HISTORY Past Medical History: Diagnosis Date Amenorrhea d/t oral contraceptive pills Endometriosis John San infection GDM (gestational diabetes mellitus) ([facility]) Headache History of menstrual cramps severe Hypertension ([facility]) x1 Varicella zoster unsure Visual impairment [...] nursing note reviewed. Exam conducted with a carpet sewing machine operator present. Vitals: Estimated body mass index is 30.36 kg/m as calculated from the following: Height as of 07/30/25: 5' 2 . Weight as of this encounter: 166 lb. BP: 140/82 Patient's last menstrual period was 02/21/2025. Assessment/Plan ICD-10-CM 1. Third trimester ([facility]) Z34.93 POCT urinalysis dipstick manually resulted 2. 31 weeks gestation of ([facility]) Z3A.31 3. Pre-eclampsia in third trimester ([facility]) O14.93 Return OB: Patient presents today [...] of: Nathan Pop DO documented in this encounterPerry County Memorial HospitalNnljvaxsna10-35-3084 Miscellaneous Notes* Telephone Encounter - Cha Harris RN - 09/28/2025 5:16 PM EST Called pt to discuss her insulin changes and received voicemail. Left her a message that Chivo ryna reviewed her blood sugars and would like her to increase her glargine to 23 units in the evening.Asked her to please call back to verify she got this new insulin change for this week. documented in this encounterSt. Rita's Hospital11-03-2025 Telephone encounter Note* Telephone Encounter - [...] this new insulin change for this week. [facility]10-27-2025 Miscellaneous Notes* Telephone Encounter - SILKE Baker - 09/21/2025 4:40 PM EDT Called regarding blood sugar logs from 09/14/25-09/20/25. Chivo Sprniger PA-C reviewed your blood sugars and would [...] blood sugar logs weekly. documented in this [facility]10-27-2025 Telephone encounter Note* Telephone Encounter [...] to send in blood sugar logs weekly. [facility] [employer] Unznfp74-37-1500 History of Present illness Narrative* Chivo Springer PA-C - 09/21/2025 12:28 PM EDT Insulin dose increased due to elevated fastings. Chivo Springer PA-C 09/21/25 1229 documented in this encounterSt. Rita's Hospital10-22-2025 Miscellaneous Notes* Telephone Encounter - Cha [...] blood sugars next week. documented in this encounterSt. Rita's Hospital10-22-2025 Telephone encounter Note* Telephone Encounter - [...] send in new blood sugars next week. [facility]10-22-2025 History of Present illness Narrative* Steph [...] John San infection GDM (gestational diabetes mellitus) ([facility]) Headache History of menstrual cramps ([facility]) Varicella zoster Visual impairment HISTORY PAST MEDICAL HISTORY SOCIAL HISTORY Past Medical History: Diagnosis Date Amenorrhea d/t oral contraceptive pills Endometriosis John San infection GDM (gestational diabetes mellitus) ([facility]) Headache History of menstrual cramps severe Hypertension ([facility]) x1 Varicella zoster unsure Visual [...] nursing note reviewed. Exam conducted with a carpet sewing machine operator present. Vitals: Estimated body mass index is 29.78 kg/m as calculated from the following: Height as of 25: 5' 2 . Weight as of this encounter: 162 lb 12.8 oz. BP: 120/80 Patient's last menstrual period was 02/21/2025. Assessment/Plan ICD-10-CM 1. 29 weeks gestation of ([facility]) Z3A.29 POCT urinalysis dipstick manually resulted 2. Third trimester ([facility]) Z34.93 POCT urinalysis dipstick manually resulted 3. Hypertension affecting , antepartum ([facility]) O16.9 4. Gestational diabetes mellitus (GDM), antepartum, gestational diabetes method of control unspecified ([facility]) O24.419 Return OB: Patient presents today [...] and continues to report glucose log to [facility]. Follow up Ultrasound in 4 weeks. Orders Placed This Encounter Procedures POCT urinalysis dipstick manually resulted Follow Up: Patient is to return to office in 2 week for routine OB appointment. Documented by Steph Keane NP on behalf of: Nathan Pop DO documented in this encounterPerry County Memorial HospitalMizwevuuuh68-32-8326 History of Present illness Narrative* Madhuri Monroy MD - 09/10/2025 11:00 AM EDT Video Visit via Real-time Synchronous Audiovisual Provider Location: [facility]- MEDICINE [address] [place] [address], [address] [place] [address] Patient Location: Other [facility] office Patient Location Motorboat Mechanic: None Video Visit Consent Statement: I discussed [...] that there are some limitations compared to ymig-gn-winu evaluations. We elected to proceed. REASON FOR [...] and the other consultants, we search on [employer] and all the available care everywhere epic I did review all the imaging studies of the patient available on EMR, ordered by the primary care physician and the other income tax consultant HABITS: Patient activity no restrictions, diet [...] patient is in complete care of her waterproofer helper. Patient does have ultrasound video visit scheduled [...] the provider today? none documented in this encounterSt. Rita's Hospital10-10-2025 History of Present illness Narrative* Radha [...] Yes Have you been seen here at [facility] in a previous ? No Recent ER visits or hospitalizations? 09/03/25 [place] to r/o preeclampsia. Patient states labs WNL Bring blood sugar log or meter with you today? (Please bring them with you for every visit at [facility]) Yes Flu vaccine (Sep-January)? N/A Any [...] and the other consultants, we search on [employer] and all the available care everywhere epic I did review all the imaging studies of the patient available on EMR, ordered by the primary care physician and the other income tax consultant HABITS: Patient activity no restrictions, diet [...] checking blood glucose and remote evaluation through [facility] office until delivery. 5. Discontinue blood [...] patient is in complete care of her waterproofer helper. Patient does have ultrasound video visit scheduled [...] with questions or concerns. documented in this encounterRegency Hospital Cleveland [email or web address] Rwhddo43-96-7973 History of Present illness Narrative* Steph Keane [...] meal for a total of 4times daily. ibywmgnzyc-eoplbbk-zehlyqpl (Fiorinal) 50-325-40 MG capsule 1 capsule, Oral, [...] San infection Headache History of menstrual cramps ([facility]) Varicella zoster Visual impairment HISTORY PAST MEDICAL HISTORY SOCIAL HISTORY Past Medical History: Diagnosis Date Amenorrhea d/t oral contraceptive pills Endometriosis John San infection Headache History of menstrual cramps severe Hypertension ([facility]) x1 Varicella zoster unsure Visual [...] nursing note reviewed. Exam conducted with a carpet sewing machine operator present. Vitals: Estimated body mass index is 29.41 kg/m as calculated from the following: Height as of 25: 5' 2 . Weight as of this encounter: 160 lb 12.8 oz. BP: 170/90 Patient's last menstrual period was 02/21/2025. ASSESSMENT & PLAN ICD-10-CM 1. 27 weeks gestation of ([facility]) Z3A.27 POCT urinalysis dipstick manually resulted 2. Second trimester ([facility]) Z34.92 Documented by Steph Keane NP on behalf of: Steph Keane NP documented in this encounterPerry County Memorial HospitalKzrxtmoiyy28-48-4751 Miscellaneous Notes* Telephone Encounter - Cha Harris [...] to make that appt. documented in this encounterSt. Rita's Hospital10-07-2025 Telephone encounter Note* Telephone Encounter - [...] Pt asked to be transferred to the critical access hospital to make that appt. [facility] [employer] Mwugal52-25-6440 History of Present illness Narrative* Steph Keane [...] to check FSBS. Blood Glucose Monitoring Suppl ([employer]ThirstyVIP Glucometer) w/Device kit 1 kit, Does not [...] San infection Headache History of menstrual cramps ([facility]) Varicella zoster Visual impairment HISTORY PAST [...] nursing note reviewed. Exam conducted with a carpet sewing machine operator present. Vitals: Estimated body mass index is 29.23 kg/m as calculated from the following: Height as of 07/30/25: 5' 2 . Weight as of this encounter: 159 lb 12.8 oz. BP: (!) 158/92 Patient's last menstrual period was 02/21/2025. ASSESSMENT & PLAN ICD-10-CM 1. 26 weeks gestation of ([facility]) Z3A.26 POCT urinalysis dipstick manually resulted 2. Second trimester ([facility]) Z34.92 Return OB: Patient presents [...] labs and have her evaluated today at [facility] OB. I discussed with OB today and they are aware that patient is coming to be ev aluated. Orders Placed This Encounter Procedures POCT urinalysis dipstick manually resulted Follow Up: Patient is to return to office in 2 week for routine OB appointment. Documented by Steph Keane NP on behalf of: Steph Keane NP documented in this encounterPerry County Memorial HospitalEdlitxesjd46-50-5778 Group counseling note* Group Note - Kerline [...] Face to face time was 80 minutes. [facility] Work Phone: [phone] 897-739109-29-2025 Miscellaneous Notes* Group Note - Kerline Augustin [...] time was 80 minutes. documented in this encounterRegency Hospital Cleveland EastCaesars of [facility] HospitalWeyuif34-18-5821 History of Present illness Narrative* Steph Keane [...] San infection Headache History of menstrual cramps ([facility]) Varicella zoster Visual impairment HISTORY PAST [...] nursing note reviewed. Exam conducted with a carpet sewing machine operator present. Vitals: Estimated body mass index is 27.82 kg/m as calculated from the following: Height as of 07/30/25: 5' 2 . Weight as of this encounter: 152 lb 1.9 oz. BP: 138/82 Patient's last menstrual period was 02/21/2025. ASSESSMENT & PLAN ICD-10-CM 1. 24 weeks gestation of ([facility]) Z3A.24 POCT urinalysis dipstick manually resulted 2. Second trimester ([facility]) Z34.92 POCT urinalysis dipstick manually [...] on Labetalol 100mg BID. Will refer to [facility] for evaluation. Patient deniesany Headache or blurred vision. Documented by Steph Keane NP on behalf of: Nathan Pop DO documented in this encounterPerry County Memorial HospitalZmfziwdoim80-91-2250 History of Present illness Narrative* Eliceo Beltran [...] infection Headache History of menstrual cramps Hypertension ([facility]) Varicella zoster Visual impairment Objective ?Quick [...] Orders: Lipid panel; Future documented in this encounterPerry County Memorial HospitalCtyavlmeda22-79-0924 History of Present illness Narrative* Christine Ravi [...] nursing note reviewed. Exam conducted with a carpet sewing machine operator present. Vitals: Estimated body mass index is 26.48 kg/m as calculated from the following: Height as of 12/30/24: 5' 2 . Weight as of this encounter: 144 lb 12.8 oz. BP: 120/80 Patient's last menstrual period was 02/21/2025. ASSESSMENT & PLAN ICD-10-CM 1. 20 weeks gestation of ([facility]) Z3A.20 POCT urinalysis dipstick manually resulted 2. Second trimester ([facility]) Z34.92 POCT urinalysis dipstick manually resulted [...] of: Nathan Pop DO documented in this encounterPerry County Memorial HospitalCbfakorlgx86-50-9156 History of Present illness Narrative* Steph Keane [...] San infection Headache History of menstrual cramps ([facility]) Varicella zoster Visual impairment HISTORY PAST [...] nursing note reviewed. Exam conducted with a carpet sewing machine operator present. Vitals: Estimated body mass index is 26.73 kg/m as calculated from the following: Height as of 12/30/24: 5' 2 . Weight as of this encounter: 146 lb 1.9 oz. BP: 118/74 Patient's last menstrual period was 02/21/2025. ASSESSMENT & PLAN (Z34.92) Second trimester ([facility]) Plan: POCT urinalysis dipstick manually resulted, Alpha fetoprotein, maternal, Alpha fetoprotein, maternal (Z3A.17) 17 weeks gestation of ([facility]) Plan: POCT urinalysis dipstick manually resulted, Alpha fetoprotein, maternal, Alpha fetoprotein, maternal (Z36.89) Screening, , for anatomic survey ([facility]) Plan: US OB 14+ weeks anatomy [...] of: Nathan Pop DO documented in this encounterPerry County Memorial HospitalMhjfxoapjm32-71-1437 History of Present illness Narrative* Steph Keane [...] San infection Headache History of menstrual cramps ([facility]) Varicella zoster Visual impairment HISTORY PAST [...] nursing note reviewed. Exam conducted with a carpet sewing machine operator present. Vitals: Estimated body mass index is 25.24 kg/m as calculated from the following: Height as of 12/30/24: 5' 2 . Weight as of this encounter: 138 lb. BP: 122/80 Patient's last menstrual period was 02/21/2025. ASSESSMENT & PLAN ICD-10-CM 1. Second trimester ([facility]) Z34.92 POCT urinalysis dipstick manually resulted 2. 13 weeks gestation of ([facility]) Z3A.13 Return OB: Patient presents today [...] of: Nathan Pop DO documented in this encounterPerry County Memorial HospitalJceyolmemw78-63-1741 History of Present illness Narrative* Hina Go [...] Dysmenorrhea 03/29/2023 Endometriosis 03/29/2023 Gastroparesis 03/29/2023 Hypertension ([facility]) 03/29/2023 Intractable migraine without aura and with status migrainosus ([facility]) 03/29/2023 Migraines ([facility]) 03/29/2023 Chronic pelvic pain in female 03/29/2023 Pain in female genitalia on intercourse 03/29/2023 Pain on swallowing 03/29/2023 Panic disorder ([facility]) 03/29/2023 Patellofemoral disorders, left knee 03/29/2023 Patellofemoral disorders, right knee 03/29/2023 Posterior calcaneal exostosis 03/29/2023 Scapular dyskinesis 03/29/2023 Scoliosis 03/29/2023 Seasonal allergic rhinitis due to pollen 03/29/2023 Tachycardia, paroxysmal ([facility]) 03/29/2023 Tension headache 03/29/2023 Vitamin [...] by: Hina Go LPN documented in this encounterPerry County Memorial HospitalIfcagopfql45-18-1537 History of Present illness Narrative* Candis Yanes, PAVING RAMMER - 01/19/2025 2:50 PM EST Reason for Appointment: Patient ID: Juhi Gama is a 29 y.o. female who presents for Painful Al[place] Patient presents today for Consult appointment. MEDICATIONS Current Outpatient Medications Medication Instructions vvjsnitoby-hkuoypltabpif-jooxqytx 50-325-40 MG tablet 1 tablet, Oral, Every 6 hours PRN meloxicam (MOBIC) 15 mg, Oral, Daily metoprolol succinate XL (Toprol-XL) 25 MG 24 hr tablet Take 1 tablet by mouth daily ALLERGIES No Known Allergies PROBLEMS Active Ambulatory Problems Diagnosis Date Noted Acquired equinus deformity of foot 03/29/2023 Displacement of cervical intervertebral disc without myelopathy 03/29/2023 Dysmenorrhea 03/29/2023 Endometriosis 03/29/2023 Gastroparesis 03/29/2023 Hypertension ([facility]) 03/29/2023 Intractable migraine without aura and with status migrainosus ([facility]/HCC) 03/29/2023 Migraines ([facility]/HCC) 03/29/2023 Chronic pelvic pain in female 03/29/2023 Pain in female genitalia on intercourse 03/29/2023 Pain on swallowing 03/29/2023 Panic disorder ([facility]/HCC) 03/29/2023 Patellofemoral disorders, left knee 03/29/2023 Patellofemoral [...] nursing note reviewed. Exam conducted with a carpet sewing machine operator present. Vitals: Estimated body mass index [...] patient and patient given direct extension to Aquatic Scientist for any questions/concerns pertaining to fertility. Documented by Candis Yanes LPN on behalf of: Nathan Pop DO documented in this encounterPerry County Memorial [id number] History of Present illness Narrative* Eliceo Beltran [...] min Stress: No Stress Concern Present (12/29/2024) [employer] [place] [employer] - Occupational Stress Questionnaire Feeling of Stress : Only a little Social Connections: Unknown (12/29/2024) Social Connection and Isolation Panel [NHANES] Frequency of Communication with Friends and Family: More than three times a week Frequency of Social Gatherings with Friends and Family: Once a week Attends Zoroastrianism Services: Patient declined Active Member of Clubs [...] with the patient today. Current Outpatient Medications: dfhmnvzahd-udvxfimguxste-zocswiak 50-325-40 MG tablet, Take 1 tablet by mouth every 6 (six) hours if needed for headaches, Disp: 20 tablet, Rfl: 0 desogestrel-ethinyl estradiol (Apri) 0.15-30 MG-MCG tablet, Take 1 tablet by mouth Daily, Disp: 21 tablet, Rfl: 12 metoprolol succinate XL (Toprol-XL) 25 MG 24 hr tablet, Take 1 tablet by mouth daily, Disp: 90 tablet, Rfl: 1 documented in this encounterPerry County Memorial [id number] History of Present illness Narrative* Virgen Steen LPN - 08/18/2024 11:00 AM EDT Reason for Appointment: Patient ID: Juhi Cope is a 29 y.o. female who presents for Well Women Visit Patient presents today for Annual Exam. MEDICATIONS Current Outpatient Medications Medication Instructions idtfoipbjo-nlbstrvqhknbo-ccdqluyb 50-325-40 MG tablet 1 tablet, Oral, Every [...] 03/29/2023 Pain on swallowing 03/29/2023 Panic disorder ([facility]/HCC) 03/29/2023 Patellofemoral disorders, left knee 03/29/2023 Patellofemoral [...] Headache History of menstrual cramps severe Hypertension ([facility]) x1 Varicella zoster unsure Visual [...] nursing note reviewed. Exam conducted with a carpet sewing machine operator present. Vitals: Estimated body mass index [...] of: Zenobia Gutierrez PA-C documented in this encounterPerry County Memorial [id number] History of Present illness Narrative* Christine Ravi LPN - 07/22/2024 9:50 AM EDT Reason for Appointment: Patient ID: Juhi Cope is a 29 y.o. female who presents for Dysmenorrhea Patient presents today for Acute Visit. MEDICATIONS Current Outpatient Medications Medication Instructions rekfwvfzkr-flpoostuzqkxh-itwrbigr 50-325-40 MG tablet 1 tablet, Oral, Every [...] nursing note reviewed. Exam conducted with a carpet sewing machine operator present. Vitals: Estimated body mass index [...] of: Nathan Pop DO documented in this encounterPerry County Memorial HospitalYdhvmzbtmh10-45-1713 Telephone encounter Note* Telephone Encounter - Candis Garces - 04/29/2024 8:23 AM EDT Received message from admin Anna Webb to cancel surgery and all appts as pt had services elsewhere [facility]06-04-2024 Miscellaneous Notes* Telephone Encounter - Candis Garces - 04/29/2024 8:23 AM EDT Received message from admin Anna Webb to cancel surgery and all appts as pt had services elsewhere documented [facility] encounterP[facility] Telephone encounter Note * Telephone Encounter - Anna De Leon - 04/25/2024 1:10 PM EDT Pt got in sooner for surgery with her local library consultant. Please cancel surgery and all pre and post op appts. [facility]05-31-2024 Miscellaneous Notes* Telephone Encounter - Anna De Leon - 04/25/2024 1:10 PM EDT Pt got in sooner for surgery with her local library consultant. Please cancel surgery and all pre and post op appts. documented in this encounterP[facility]02[facility] History of Present illness Narrative* [...] nursing note reviewed. Exam conducted with a carpet sewing machine operator present. Vitals: Estimated body mass index [...] of: Nathan Kiesha, DO documented in this encounterPerry County Memorial [id number] Miscellaneous Notes* Telephone Encounter - Pippa Simon [...] mg tablet Class: Normal Route: ORAL Order: [id number] E-Prescribing Status: Receipt confirmed by pharmacy (05/17/2023 [...] may recur and often requires a senior living treatment plan. Once endometriosis is identified, there [...] Center 05/20/2024 10:00 AM [facility]24 10:30 AM Charlene Rodriguez DO [facility] Appointment scheduled: As listed above Action taken: Refill request routed to clinician Pippa Simon RN January 03, 2024 4:29 PM * Telephone Encounter - Alena Tracy - 01/02/2024 3:52 PM EST Patient: Juhi Cope : 1995 Provider: Charlene Rodriguez DO Caller Phone #: [phone] (home) [phone] (cell) Reason for call: b/c refill Message routed to nurse triage Date of next visit: MEGAN: 12/10/2023 documented in this encounterPike [facility] Hospital01-15-2024 NoteHNO ID: [id number] Author: CHARLENE RODRIGUEZ DO Service: ? Author Type: Physician Type: Progress Notes Filed: 12/10/2023 15:14 Note Text: [facility] SECTION FOR MINIMALLY INVASIVE GYNECOLOGIC SURGERY OUTPATIENT VISIT DATE 12/10/2023 OUTPATIENT VISIT TYPE Follow-up visit PRIMARY CARE PHYSICIAN: Denny Rodríguez [address] [place] [address] REFERRING PHYSICIAN: Self CHIEF COMPLAINT: No chief [...] MRI: no evidence of Past Gynecologic History: Hamper Maker Machine History LMP: 07/08/2023 (Exact Date), Having periods Age at Menarche: 14 Age at First : 27 Age at Menopause: Hamper Maker Machine History Comments: Sexual Activity: Never; No partner [...] presents today with pelvic (more content not included)...[facility]10-18-2023 Hospital Discharge instructions Patient Education 09/12/2023 18:18:13 [...] Follow these instructions at home: Medicines Take zvje-rkf-omctxum and prescription medicines only as told by [...] buy a blood pressure monitor at most [employer] or online. Where to find more information [place] [employer]: www.heart.org Contact a health care [...] provider. Document Revised: 07/27/2022 Document Reviewed: 07/27/2022 [employer] Patient Education 2022 [employer]. 09/12/2023 18:18:13 Hypertension, Adult, Buoe-zb-Webv Hypertension, Adult Hypertension is another name for [...] doctor. Keep all follow-up visits. Medicines Take xjeg-uvu-jnxlsvg and prescription medicines only as told by [...] provider. Document Revised: 08/31/2022 Document Reviewed: 08/31/2022 [employer] Patient Education 2022 [employer]. 09/12/2023 18:18:13 General Headache Without Cause, Mtto-wt-Vgsy General Headache Without Cause A headache is pain or discomfort you feel around the head or neck area. There are many causes and types of headaches. In some cases, the cause may not be found. Follow these instructions at home: Watch your condition for any changes. Let your doctor know about them. Take these steps to help with your condition: Managing pain Take pize-wdw-bfggesr and prescription medicines only as told by [...] provider. Document Revised: 04/12/2022 Document Reviewed: 04/12/2022 [employer] Patient Education 2022 [employer]. Follow Up Care 09/12/2023 17:21:57 With:DENNY RODRÍGUEZ Address: [address] [place] [address] Business (1) When:09/15/2023 18:03:37 Comments:Follow-up with your primary care provider in 3 to 5 days. If symptoms worsen, do not improve, or new symptoms arise please report back to emergency department for further evaluation. [facility]10-18-2023 Evaluation + Plan noteExtracted from: Title:ED [...] date 09/12/23 18:02:00 EDT, 09/12/23 18:02:00 EDT [facility]10-16-2023 Instructions* Patient Instructions* Jihan Downs APRN.CNP - 09/10/2023 9:52 AM EDT Plan: Trial baclofen suppositories - can switch to pill vaginally if suppositories are not affordable Consider Pelvic floor physical therapy - can find local provider [email or web address] Consider going back to see Dr Kuldip Downs APRN.CNP documented in this encounterPike [facility] Hospital10-05-2023 NoteHNO ID: [id number] Author: Charlene Rodriguez DO Service: ? Author Type: Physician Type: Progress Notes Filed: 08/30/2023 11:15 AM Note Text: Tramadol rx sent to pharmacy.[facility]10-05-2023 History of Present illness Narrative* Charlene Rodriguez DO - 08/30/2023 11:13 AM EDT Tramadol rx sent to pharmacy. documented in this encounterPike Community Hospital10-05-2023 Miscellaneous Notes* Telephone Encounter - Chelsie Dueñas RN - 08/30/2023 10:50 AM EDT Last office visit: 08/24/2023 Assessment and Plan No diagnosis found. Trial baclofen suppositories Will send list of PTs Consider going back to Kuldip SIGNATURE: Jihan Downs APRN.SUPERVISOR [employer] PLACING Office visit with Dr. Rodriguez 07/16/2023 IMPRESSION: [...] plan. Charlene Rodriguez DO documented in this encounterPike Community Hospital09-29-2023 NoteHNO ID: [id number] Author: Jihan Downs APRN.ANA LAURA Service: ? Author Type: Nurse Practitioner Type: Progress Notes Filed: 09/10/2023 9:53 AM Note Text: [facility] Department of Benign Gynecology [facility] PATIENT NAME: Juhi Cope DATE: 08/24/2023 Patient Name and verified: Yes Patient Location: [place] This Virtual Visit was completed using My Chart Zoom platform. I have communicated my name and active licensure. The patient's identity and physical location were verified at the time of this visit. Either the patient or their legal apparel trimmings sales representative has been informed of the [...] appointment yet. GI - constipation is improved Alva - hasn't tried due to pain and bleeding 07/16/23 IMPRESSION: Ms. oCpe is a 28 year old female who [...] physical therapy - or can go locally pelvicLe CicogneabAuctomatic Trial flexeril at bedtime Can consider Baclofen suppositories Continue Norethindrone - can take up to 3 months for it to stop periods, take at same time every day Relaxation techniques Jihan Downs APRN.SUPERVISOR [employer] PLACING OB History T0 L1 SAB0 IAB0 Ectopic0 Multiple0 Live Births0 Hamper Maker Machine History LMP: 07/08/2023 (Exact Date), Having periods Age at Menarche: 14 Age at First : 27 Age at Menopause: Hamper Maker Machine History Comments: Sexual Activity: Never; No partner [...] toxic appearing HEENT nor (more content not included)...[facility]09-29-2023 History of Present illness Narrative* Jihan Downs APRN.SUPERVISOR RIPRAP PLACING - 08/24/2023 9:24 AM EDT Images from the original note were not included. [facility] Department of Benign Gynecology [facility] PATIENT NAME: Juhi Cope DATE: 08/24/2023 Patient Name and verified: Yes Patient Location: [place] This Virtual Visit was completed using My Chart Zoom platform. I have communicated my name and active licensure. The patient's identity and physical location wereverified at the time of this visit. Either the patient or their legal apparel trimmings sales representative has been informed of the [...] appointment yet. GI - constipation is improved Alva - hasn't tried due to pain and [...] physical therapy - or can go locally pelvicLe CicogneabAuctomatic Trial flexeril at bedtime Can consider Baclofen suppositories Continue Norethindrone - can take up to 3 months for it to stop periods, take at same time every day Relaxation techniques Jihan Downs APRN.SUPERVISOR [employer]ACING OB History T0 L1 SAB0 IAB0 Ectopic0 Multiple0 Live Births0 Hamper Maker Machine History LMP: 07/08/2023 (Exact Date), Having periods Age at Menarche: 14 Age at First : 27 Age at Menopause: Hamper Maker Machine History Comments: Sexual Activity: Never; No partner [...] to see Dr Rodriguez SIGNATURE: Jihan Downs, JAMI.SUPERVISOR RIPRAP PLACING Medical Decision Making: Problems: Low: Stable chronic illness Risk: Moderate: Drug management Medical Decision Making Level: 3 - Low documented in this encounterPike [facility] Hospital09-22-2023 Miscellaneous Notes* Telephone Encounter - [...] Provider: Charlene Rodriguez DO Caller Phone #: [phone] (home) [phone] (cell) Reason for call: pt calling regarding mc message., still in pain. Please call [phone] Message routed to nurse triage Date of next visit: documented in this encounterPike [facility] Hospital09-07-2023 Miscellaneous Notes* Telephone Encounter - Candis Suárez RN - 08/02/2023 11:29 AM EDT PA for orilissa completed via Cover [employer]. Juhi Cope (Morales: [id number]) - [id number] Orilissa 150MG tablets Status: Sent To Plan [...] too. Please advise. Thanks. documented in this encounterPike [facility] Hospital08-21-2023 NoteHNO ID: [id number] Author: Charlene Rodriguez DO Service: ? Author Type: Physician Type: Progress Notes Filed: 07/16/2023 12:41 PM Note Text: [facility] SECTION FOR MINIMALLY INVASIVE GYNECOLOGIC SURGERY OUTPATIENT VISIT DATE 07/16/2023 OUTPATIENT VISIT TYPE Follow-up visit PRIMARY CARE PHYSICIAN: Denny Rodríguez [address] [place] [address] REFERRING PHYSICIAN: Denny Rodríguez CHIEF COMPLAINT: No [...] additional bowel lesions identified Past Gynecologic History: Hamper Maker Machine History LMP: 07/08/2023 (Exact Date), Having periods Age at Menarche: 14 Age at First : 27 Age at Menopause: Hamper Maker Machine History Comments: Sexual Activity: Never; No partner [...] Signs: 07/16/23 1115 BP: (more content not included)...[facility]07-18-2023 History of Present illness Narrative* Boo Singh [...] 12, 2023 4:32 PM documented in this encounterPike [facility] Hospital07-18-2023 NoteHNO ID: [id number] Author: Rosio Malcolm RT(R) Service: ? Author Type: Cylinder Inspector Type: Progress Notes Filed: 06/12/2023 4:32 [...] BY: RT Claudia(Bryant) June 12, 2023 4:32 PMCEast [facility]07-18-[facility] NoteHNO ID: [id number] Author: Boo Singh RN Service: Nursing Author [...] Cope DATE: June 12, 2023 TIME: 1:43 [facility]06-22-2023 NoteHNO ID: [id number] Author: Charlene Rodriguez, DO Service: ? Author Type: Physician Type: Progress Notes Filed: 05/21/2023 10:15 AM Note Text: [facility] SECTION FOR MINIMALLY INVASIVE GYNECOLOGIC SURGERY OUTPATIENT VISIT DATE 05/17/2023 OUTPATIENT VISIT TYPE FUV - zoom virtual visit CHIEF COMPLAINT: Endometriosis, pelvic pain HISTORY OF PRESENT ILLNESS: Juih Cope is a pleasant 28 year old female who presents for follow up visit. Cramping, back pain Endo pain Flare: 04/22 - 04/29 Pain was really bad Bleeding was light 05/04 - 05/09 Pelvic floor PT - went to appointment last week Past Gynecologic History: Hamper Maker Machine History LMP: 04/22/2023 (Exact Date), Having periods Age at Menarche: 14 Age at First : 27 Age at Menopause: Hamper Maker Machine History Comments: Sexual Activity: Never; No partner [...] treatment plan. Charlene Rodriguez DO Tt: 20 minutesFirelands [facility]06-[facility]23 History of Present illness Narrative* Charlene Rodriguez DO - 05/17/2023 1:05 PM EDT Images from the original note were not included. [facility] SECTION FOR MINIMALLY INVASIVE GYNECOLOGIC SURGERY OUTPATIENT [...] to appointment last week Past Gynecologic History: Hamper Maker Machine History LMP: 04/22/2023 (Exact Date), Having periods Age at Menarche: 14 Age at First : 27 Age at Menopause: Hamper Maker Machine History Comments: Sexual Activity: Never; No partner [...] DO Tt: 20 minutes documented in this encounterPike Community Hospital06-16-2023 Miscellaneous Notes* Telephone Encounter - Candis Suárez RN - 05/11/2023 4:19 PM EDT Reports vaginal bleeding, using panty liners, changing a few times a day, not severe. Biggest complaint is cramping. Has had 3 periods of bleeding recently - 04/22/2023 LMP, last a few days, 05/04-05/10 bleeding again 05/11/2023 started again today. Takes aygestin 5mg daily. She did not pickle solution maker flexeril. Encourage to pickle solution maker the flexeril as this will help with the cramping. Reviewed red flag bleeding symptoms that require trip to ER (soaking greater than one overnight padper hour, chest pain, shortness of breath, fatigue, palpitations).. Advised keep appt. Gives verbal understanding. Appointments for Next 60 Days Date Time Provider Location Dept Phone 05/17/2023 1:00 PM CHARLENE RODRIGUEZ [facility] [phone] Candis Suárez RN * Telephone Encounter - Tawana Nair [facility] - 05/11/2023 1:19 PM EDT Reason for call: other - Vaginal bleeding Provider name: Dr Rodriguez Additional comments: patient having more vaginal bleeding and concerned she is getting worse. Recommendation: routed to nurse triage pool documented in this encounterPike [facility] Hospital06-06-2023 Instructions* Patient Instructions* Jihan Downs APRN.ANA LAURA - 05/01/2023 11:47 AM EDT Plan Pelvic floor physical therapy - or can go locally pelvicLe CicogneabAuctomatic Trial flexeril at bedtime Can consider Baclofen [...] pelvic pain society ([email or web address].org) documented in this encounterPike Community Hospital06-06-2023 History of Present illness Narrative* Jihan Downs APRN.ANA LAURA - 05/01/2023 10:30 AM EDT Juhi Cope is a 28 year old female who presents for problem visit for pain HPI: Pain is week before period and week of period. Worse on her period for every day she's bleeding Urinary - No symptoms GI - Always constipated. No meds Alva - painful always Pain is on left [...] L0 SAB0 IAB0 Ectopic0 Multiple0 Live Births0 Hamper Maker Machine History LMP: 03/26/2023 (Approximate), Having periods Age at Menarche: Age at First : Age at Menopause: Hamper Maker Machine History Comments: Sexual Activity: Never; No partner [...] physical therapy - or can go locally TheTake Trial flexeril at bedtime Can consider Baclofen [...] Level: 4 - Moderate documented in this encounterPike [facility] Hospital06-06-2023 NoteHNO ID: [id number] Author: Jihan Downs APRN.CNP Service: ? Author Type: Nurse Practitioner Type: Progress Notes Filed: 05/09/2023 11:46 AM Note Text: Juhi Cope is a 28 year old female who presents for problem visit for pain HPI: Pain is week before period and week of period. Worse on her period for every day she's bleeding Urinary - No symptoms GI - Always constipated. No meds Alva - painful always Pain is on left [...] L0 SAB0 IAB0 Ectopic0 Multiple0 Live Births0 Hamper Maker Machine History LMP: 03/26/2023 (Approximate), Having periods Age at Menarche: Age at First : Age at Menopause: Hamper Maker Machine History Comments: Sexual Activity: Never; No partner [...] physical therapy - or can go locally TheTake Trial flexeril at bedtime Can consider Baclofen [...] management Medical Decision Making Level: 4 - [facility]erateFirelands [facility] Miscellaneous Notes* Telephone Encounter - Marilee Valdez [...] months. Lucila Foss RN documented in this encounterPike [facility] Hospital03-08-2023 Hospital Discharge instructions Patient Education [...] told by your health care provider. Take wlpd-egt-xgaayie and prescription medicines only as told by [...] 01/03/2007 Document Revised: 10/25/2018 Document Reviewed: 01/25/2018 [employer] Patient Education 2020 [employer]. Follow Up Care 01/31/2023 13:43:01 With:Denny Meza Address:Unknown When:02/03/2023 18:59:31 Comments:Follow-up for evaluation of hypertension in context of known preeclampsia in the period With:DENNY RODRÍGUEZ [facility] [place] [address]- Business (1) When:Within 3 Day(s) [facility]03-08-2023 Evaluation + Plan noteExtracted from: Title:ED NoteAuthor:Mayur Mabry PA-C CDate:01/31/23 Flank pain (R10.9: Unspecifi ed abdominal pain) Headache (R51.9: Headache, unspecified) Orders: CTA Chest Hepatic Function Panel [facility]02-04-2023 Hospital Discharge instructions Patient Education 12/30/2022 13:59:51 QA ENGINEER - Post D&C, Hysteroscopy, LEEP or [...] Instructions - FT (Custom) (Custom) 12/30/2022 13:55:16 QA ENGINEER - Post D&C, Hysteroscopy, LEEP or [...] 08:14:12 With:Denny Meza Address: [address], [place] [address] [place] [address]- Business (1) When: Unknown Comments:follow up in 1-2 weeks With:DENNY RODRÍGUEZ Address: [address] [place] [address]- Business (1) When:01/02/2023 09:21:18 [facility]02-04-2023 Evaluation + Plan noteExtracted from: Title:ANES [...] from:Title:ANES Pre-operative NoteAuthor:Kenneth Agustin MDDate: 12/30/22 Plan [place] [employer] of Anesthesiologists (ASA) physical status classification: [...] With Cult Reflex US Pelvis Non-OB Complete [facility]01-10-2023 History of Present illness Narrative* Tory [...] Ross MD - 12/05/2022 3:19 PM EST [facility]: This patient was seen in the [facility] by the resident. I reviewed and agree with the care provided by the resident during or immediately following the visit including the patient's medical history, the resident's finding in the physical exam, patient's diagnosis and treatment plan. documented in this [facility]01-07-2023 NoteDepartment of Obstetrics and Gynecology Delivery Discharge Summary Admission on 11/28/2022 12:24 AM Hospital course: Juhi Cope at 35w1d admitted as a transfer from [facility] for [facility]. She was started on Magnesium there [...] Information for the patient's : Francie Cope [[id number]] female 2425 g (5 lb 5.5 oz) Apgars: Information for the patient's : Francie Cope [[id number]] : Infant: Girl Blood Type/Rh: O Antibody [...] Your Medications These medications were sent to [facility] [address] [place], [place] [id number] Hours: Sunday to Sunday 10 am to [...] Order a blood pressure kit through [facility] (or the patient's own pharmacy on the weekend) [] Order the blood pressure log through [facility] [x] Place an office visit or telephone [...] notify her physician if any of these occur.[facility]01-07-2023 History of Present illness Narrative* Anna [...] with more than 50% of the total holv-zm-zbwc time of the visit in counseling/coordination of [...] be monitored and followed by the diet biometrics technician. CRISS Oshea * Alejandra Arcos RN [...] and reassuring. CCM. Cx:/-3 FHT: Cat 1 [place]:q3-4 min A/P: 1. IOL-PreEwSF. FHT 130 baseline, with moderate variability, Accelerations present Yes, and rare late deceleration . Cervical exam unchanged. Cytotec x4 placed at this time. Patient intermittently feeling contractions. BP mild range. Cx: 1-/-3 FHP: defer FHT: Cat I [place]: a3-4min A/P: 1. IOL-PreEwSF: FHT Category I, [...] unchanged FHP: defer FHT: Cat I [place]: q4min A/P: 1. IOL-PreEwSF: FHT Category I, [...] 6:17 AM Cx:1-2/60/-3 FHT: Cat I [place]:q4-5mins A/P: 1. IOL-PreEwSF: Cat I FHT with [...] protocol. CCM. Cx:defer FHT: Cat I [place]:q4-6mins A/P: 1. IOL-PreEwSF: Cat I FHT with baseline 120, moderate variability, spontaneous accelerations, and no decelerations. BP normotensive to mild range since last note time. Pitocin @ 2 cc/hr, continue to titrate per protocol. Magnesium sulfate running for seizure prophylaxis, UOP 400 ml over past 4hours. CCM. Cx:defer FHT: Cat I [place]:q4-5mins A/P: 1. IOL-PreEwSF: Cat I FHT with baseline 135, moderate variability, spontaneous accelerations, and no decelerations. BP normotensive to mild range since last note time. Pitocin @ 6 cc/hr, continue to titrate per protocol. Magnesium sulfate running for seizure prophylaxis, UOP 600 ml over past 4hours. Will plan for AROM soon. CCM. Cx:defer FHT: Cat I [place]:irritability A/P: 1. IOL-PreEwSF: Pit @ 8 mu/min. Patient resting comfortably and only irritability tracing on toco. BP most recently mild range. On magnesium sulfate for seizure prophylaxis. UOP adequate. Continue magnesium and continue to titrate pitocin per protocol. Plan for AROM once patient rudi more regularly. Electronically signed by Cortney Velasquez DO 11/29/2022 4:21 PM Cx:470/-3 FHT: Cat 1 [place]:Not tracing A/P: 1. IOL-PreEwSF. FHT 135 baseline, with moderate variability, Accelerations present Yes, and nodecelerations seen . AROM at this time for moderate amount blood tinged fluid. Pitocin at 8cc/hr. Maternal BP mild range. On Magnesium for Seizure prophylaxis. Patient with adequate urinary output. CCM. Cx: defer FHP: defer FHT: Cat II [place]: not tracing well A/P: 1. IOL-PreEwSF: FHT [...] RN FHP: defer FHT: Cat II [place]: q4min A/P: 1. IOL-PreEwSF: FHT Category II [...] delivery note for details documented in this [facility]01-07-2023 Hospital course Narrative* César Tran DO - 12/02/2022 12:32 PM EST Images from the original note were not included. Department of Obstetrics and Gynecology Delivery Discharge Summary Admission on 11/28/2022 12:24 AM Hospital course: Juhi Cope at 35w1d [facility] She was startedon Magnesium there and [...] Information for the patient's : Francie Cope [[id number]] female 2425 g (5 lb 5.5 oz) Apgars: Information for the patient's : Francie Cope [[id number]] : : Girl Blood Type/Rh: O Antibody [...] Your Medications These medications were sent to [facility] [address] [place] [address] Hours: Sunday to Sunday 10 am to [...] Order a blood pressure kit through [facility] (or the patient's own pharmacy on the weekend) [] Order the blood pressure log through [facility] [x] Place an office visit or telephone [...] any of these occur. documented in this [facility]01-06-2023 Note* Care Coordination - [...] home. Denies any concerns at this time. [id number] Note* Care Coordination - Christine Michelle RN [...] home. Denies any concerns at this time. [facility] [id number] Miscellaneous Notes* Care Coordination - Christine Michelle [...] indicated for this pt. Due to: in [facility] Hospital breast pump, supplies kit, [...] Told patient to check with LC in [facility] for smaller flange sizes * L&D Delivery Note - Irina Kramer DO - 11/30/2022 4:04 AM EST Images from the original note were not included. Vaginal Delivery Note Department of Obstetrics and Gynecology Patient: Juhi Cope : 1995 Date of delivery: 11/30/2022 Pre-operative Diagnosis: Juhi Mojica0 at 35w1d 1. <37 weeks 2. 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 Bowden; Dr. Kramer Information: Information for the patient's : Francie Cope [[id number]] Information for the patient's : Francie Cope [[id number]] Description: normal Meconium Noted: No Anesthesia: epidural [...] change. Clotilde Mg RN documented in this [facility]01-06-2023 Obstetrics Note* Note - Ligia Bridges RN - 12/01/2022 9:00 AM EST 22.5mm flanges given to patient. Encouraged her to call for observation of pump session and smallerflanges. Martha in NICU to assist with personal pump. [facility] [id number] Hospital Discharge instructions* Discharge Instructions* Carol Bowden [...] 8 weeks after delivery. Bleeding may pickle solution maker and then decrease again around [...] avoid constipation you may take a mild ljqe-xlb-xlvxijg stool softener (such as colace) as recommended [...] positive or a Person Under Investigation (PUI) Xhutpv-rg-foakr transmission of COVID-19 during is unlikely, but after a baby is susceptible to pjxoko-rn-lsmnzu spread. After your baby is born, your [...] clean your hands with an alcohol-based hand necktie stitcher that contains at least 60% alcohol. Clean your hands often Wash your hands often with soap and water for at least 20 seconds, especially after blowing your nose, coughing, or sneezing; going to the bathroom; and before eating or preparing food. If soap and water are not readily available, use an alcohol-based hand necktie stitcher with at least 60% alcohol, covering all [...] to call the local or [facility] health department. Persons who are placed [...] isolation precautions should be made on a klak-nh-nodm basis, in consultation with healthcare providers and [...] respiratory tract signs and symptoms. Ways to [place] with Anxiety & Stress It is normal [...] an illness that was first found in [facility], in October 2019. It has since [...] seen in people before. This virus spreads kkhxan-ks-icdjyo through droplets from coughing and sneezing. It [...] water aren't available, use an alcohol-based hand necktie stitcher. Call 911 anytime you think you may [...] of: February 25, 2020 Content Version: 12.4 HealthTell. Care instructions adapted under license by your [...] handles, desks, toilets, faucets, sinks) with household pipe stress engineer and EPA-registered disinfectants that are appropriate for [...] appropriate. These supplies include tissues, paper towels, pipe stress engineer and EPA-registered disinfectants (see list link at [facility] website). If a separate bathroom is not [...] be used for other purposes. Consult the gender studies professor's instructions for cleaning and disinfection products [...] used if appropriate for the surface. Follow gender studies professor's instructions for application and proper ventilation. [...] for harder to kill viruses. Follow the gender studies professor's instructions for all cleaning and disinfection products (e.g., concentration, application method and contact time, etc.). Soft (porous) surfaces such as carpeted floor, rugs, and drapes Remove visible contamination if present and clean with appropriate pipe stress engineer indicated for use on these surfaces. After cleaning: Launder items as appropriate in accordance with the gender studies professor's instructions. If possible, launder items using [...] items as appropriate in accordance with the gender studies professor's instructions. If possible, launder items using [...] or can be laundered. [facility] has a list of EPA approved cleaning products on their website - https://www.cdc.gov/coronavirus/ 2019-ncov/community/home/cleaning-disinfection.html https://www.[employer]/Iyhtn-Cpfvvwsnmfb-Oogwkgpb-Products-List.pdf [employer] with delivery and pickle solution maker services: [employer]: Free pickle solution maker at locations Delivery is $12.95 a month Website - [employer] [place]: Green End Man $2.95 (1st order is free) Delivery is $14.95 Website - [employer] [place]: foreman or supervisor and operator is free Delivery is $5.95 Website [employer]: foreman or supervisor and operator is $4.95 Delivery is $9.95 Website [employer]: foreman or supervisor and operator is $4.95 Delivery is $9.95 Website [employer]: Can be ordered for delivery and pickle solution maker with trip.me Website - www.[employer]: Free deliver for first 3 orders of $35 or more Website - aldiTongal Will deliver from [employer], [employer], [employer], and [employer]. Annual membership is $99 Monthly membership is $14 * Attachments The following attachments cannot be sent through Care Everywhere. * Preeclampsia Discharge Instructions (Yemeni) documented in this [facility]01-05-2023 Obstetrics Note* Note - Sheila Harrell RN - 11/30/2022 10:37 AM EST Swabs given to patient and educated how to use and to bring to [facility] [id number] Obstetrics Note* Note - Sheila Harrell RN - 11/30/2022 10:30 AM EST Breast pump use indicated for this pt. Due to: in [facility] Hospital breast pump, supplies kit, [...] pump Told patient to check with in [facility] for smaller flange sizes [facility] [id number] NotePatient: Juhi Cope Procedure Summary Date: 11/29/22 [...] discharged once all PACU criteria has been met.[facility]01-05-2023 NotePatient: Juhi Cope Procedure Summary Date: [...] Allowed opportunity for questions and acknowledgement of understanding.[facility]01-05-2023 Labor and delivery summary note* L&D Delivery Note - Irina Kramer DO - 11/30/2022 4:04 AM EST Images from the original note were not included. Vaginal Delivery Note Department of Obstetrics and Gynecology Patient: Juhi Cope : 1995 Date of delivery: 11/30/2022 Pre-operative Diagnosis: Juhi Sidhu at 35w1d 1. <37 weeks 2. 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 Bowden; Dr. Kramer Information: Information for the patient's : Francie Cope [[id number]] Information for the patient's : Francie Cope [[id number]] Description: normal Meconium Noted: No Anesthesia: epidural [...] surgery as described in the resident note. [facility] [id number] NoteEpidural Block Time Out: 11/29/2022 6:17 PM Patient location during procedure: OB Start time: 11/29/2022 6:18 PM End time: 11/29/2022 6:45 PM Reason for block: labor analgesia Staffing Performed: FACILITY SERVICE ASSOCIATE Resident/FACILITY SERVICE ASSOCIATE: Jimmie Kaur APRN - FACILITY SERVICE ASSOCIATE Preanesthetic Checklist Completed: patient identified, IV checked, [...] patient tolerated procedure well with no immediate complicationsC.S. [facility]01-04-2023 Plan of care note* Care Plan - Clotilde Mg RN - 11/29/2022 7:45 AM EST The patient will continue to make cervical change. Clotilde Mg RN [facility] [id number] NotePatient: Juhi Cope Procedure Information Date: 11/28/22 [...] products. patient is not NPO Additional Equipment RequestsC.S. Mott [facility]'s Hospital01-03-2023 NoteLabor Progress Note Date: 11/28/2022 Time: [...] reassuring. CCM. Cx:-3 FHT: Cat 1 [place]:q3-4 min A/P: 1. IOL-PreEwSF. FHT 130 baseline, with moderate variability, Accelerations present Yes, and rare late deceleration . Cervical exam unchanged. Cytotec x4 placed at this time. Patient intermittently feeling contractions. BP mild range. Cx: 1--3 FHP: defer FHT: Cat I [place]: a3-4min A/P: 1. IOL-PreEwSF: FHT Category I, [...] unchanged FHP: defer FHT: Cat I [place]: q4min A/P: 1. IOL-PreEwSF: FHT Category I, [...] 6:17 AM Cx:1-2/60/-3 FHT: Cat I [place]:q4-5mins A/P: 1. IOL-PreEwSF: Cat I FHT with [...] protocol. CCM. Cx:defer FHT: Cat I [place]:q4-6mins A/P: 1. IOL-PreEwSF: Cat I FHT with baseline 120, moderate variability, spontaneous accelerations, and no decelerations. BP normotensive to mild range since last note time. Pitocin @ 2 cc/hr, continue to titrate per protocol. Magnesium sulfate running for seizure prophylaxis, UOP 400 ml over past 4 hours. CCM. Cx:defer FHT: Cat I [place]:q4-5mins A/P: 1. IOL-PreEwSF: Cat I FHT with baseline 135, moderate variability, spontaneous accelerations, and no decelerations. BP normotensive to mild range since last note time. Pitocin @ 6 cc/hr, continue to titrate per protocol. Magnesium sulfate running for seizure prophylaxis, UOP 600 ml over past 4 hours. Will plan for AROM soon. CCM. Cx:defer FHT: Cat I [place]:irritability A/P: 1. IOL-PreEwSF: Pit @ 8 mu/min. Patient resting comfortably and only irritability tracing on toco. BP most recently mild range. On magnesium sulfate for seizure prophylaxis. UOP adequate. Continue magnesium and continue to titrate pitocin per protocol. Plan for AROM once patient rudi more regularly. Electronically signed by Cortney Velasquez DO 11/29/2022 4:21 PM Cx:/-3 FHT: Cat 1 [place]:Not tracing A/P: 1. IOL-PreEwSF. FHT 135 baseline, with moderate variability, Accelerations present Yes, and no decelerations seen . AROM at this time for moderate amount blood tinged fluid. Pitocin at 8cc/hr. Maternal BP mild range. On Magnesium for Seizure prophylaxis. Patient with adequate urinary output. CCM. Cx: defer FHP: defer FHT: Cat II [place]: not tracing well A/P: 1. IOL-PreEwSF: FHT Category II for brief period of lates vs early deceleration (more content not included)...[facility]01-03-2023 NoteObstetrical History and Physical CHIEF COMPLAINT: [...] 34w6d Is this patient being delivered between 11d7k-32n4c weeks with an acceptable medical indication (obstetric, maternal, and/or )? NA: Not Applicable: This patient is being delivered outside of the PC-01 range (14w0t-77d1b) for reasons indicated in the medical record. [...] VTE Prophylaxis: Not Indicated (more content not included)...[facility]01-03-2023 History and physical note* Cassie Constantino [...] 34w6d Is this patient being delivered between 99p4u-64s2h weeks with an acceptable medical indication (obstetric, maternal, and/or )? NA: Not Applicable: This patient is being delivered outside of the PC-01 range (11b6x-31s5l) for reasons indicated in the medical record. [...] plan. Cassie Constantino MD 11/28/2022, 12:48 AM [facility] [id number] History and physical note* Cassie Constantino MD [...] 34w6d Is this patient being delivered between 03m6k-75p9w weeks with an acceptable medical indication (obstetric, maternal, and/or )? NA: Not Applicable: This patient is being delivered outside of the PC-01 range (57g7s-76c7j) for reasons indicated in the medical record. [...] MD 11/28/2022, 12:48 AM documented in this [facility]01-02-2023 Evaluation + Plan note Extracted from:Title:OB High Risk Antepartum Visit *Author:Fredi DORSEY MD Date:11/27/22 Impression and Plan Diagnosis 34 weeks 5 days. Preeclampsia. contractions. Maternal tachycardia.. Course: Worsening, New onset headache may be a signal of worsening symptoms of preeclampsia.. Orders I discussed this case with the maternal- medicine department at [facility] in [facility], Dr. Thea Nieves, she accepted to transfer due to preeclampsia. Plan: Magnesium sulfate per protocol, betamethasone, transfer arrangements are in progress..[facility]08-19-2022 Evaluation + Plan note Extracted from:Title:ED [...] Colace and Proctofoam and follow-up with her QA ENGINEER physician in the outpatient setting. She is provided with a note for work. Additional diagnosis: Constipation, UTI and [facility]08-19-2022 Hospital Discharge instructions Follow Up Care 07/14/2022 06:07:36 With:Denny Meza Address:Unknown When:07/17/2022 07:24:48 With:DENNY RODRÍGUEZ Address: [address] [place] [place] [address] Business (1) When:Within 3 Day(s) [facility]08-19-2022 Hospital Discharge instructions Follow Up Care 07/14/2022 04:40:16 With:Denny Meza Address: [address], [address] [place] [address]- Business (1) When:07/17/2022 Comments:Appointment has already been scheduledCall Dr if fever>100.5 F, heavy bleedingCall for any problems.Call for severe abdominal painCall physician for heavy vaginal bleedingCall physician if symptoms worsenPlease call if you need to rescheduleReturn for contractions closer, longer, harderReturn ifruptured membranes or vaginal bleeding [facility]05-31-2022 Evaluation + Plan note Diagnostic Tests Pending * Dzpsi-1-Axsshqknmrw 04/25/22 * NIGEL w/Reflex if POS 04/25/22 * Ceruloplasmin 04/25/22 * HCV Antibody RFX to Quant PCR 04/25/22 * HBV Core Ab 04/25/22 * Hepatitis B Surface Antibody 04/25/22 * Hepatitis B Surface Antigen 04/25/22 * Smooth Muscle Antibody Screen 04/25/22 [facility]05-24-2022 Evaluation note* Encounter Date Diagnosis Assessment Notes Treatment Notes Treatment Clinical Notes March, Elevated liver function tests (I CD-10 - R79.89) LABS INDICATED ABOVE Amarin Other Evaluation note* Diagnosis Pelvic pain in female- Primary Unspecified symptom associated with female genital organs [facility]* Diagnosis Chronic pelvic pain in female- Primary Unspecified symptom associated with female genital organs Constipation, unspecified constipation type High-tone pelvic floor dysfunction Other specified disorders of female genital organs Diastasis of rectus abdominis Dysmenorrhea Other specified dyspareunia documented in this [facility]* Diagnosis Endometriosis- Primary Endometriosis, site unspecified Pelvic and perineal pain Unspecified symptom associated with female genital organs documented in this [facility]* Diagnosis Pelvic pain in female- Primary Unspecified symptom associated with female genital organs documented in this [facility]* Diagnosis Pelvic pain in female- Primary Unspecified symptom associated with female genital organs documented in this encounter [facility] note* Diagnosis High-tone pelvic floor dysfunction- Primary Other specified disorders of female genital organs Chronic pelvic pain in female Unspecified symptom associated with female genital organs documented in this encounter [facility] note* Diagnosis Pelvic and perineal pain Unspecified symptom associated with female genital organs documented in this encounter [facility] note* Diagnosis Menorrhagia with regular cycle Pelvic pain in female Unspecified symptom associated with female genital organs Uses control [facility] Diagnosis Preeclampsia, severe, third trimester- Primary Preeclampsia, severe, third trimester documented in this encounter [facility]* Diagnosis Pre-eclampsia, severe, delivered- Primary documented in this encounter [facility]* Diagnosis Dysmenorrhea, unspecified documented in this encounter [facility]* Diagnosis Well woman exam with routine gynecological exam Routine gynecological examination [facility]* Diagnosis Hypertension, unspecified type (CMS/HCC)- Primary Paroxysmal tachycardia, unspecified (CMS/HCC) Paroxysmal tachycardia, unspecified Chronic right shoulder pain Pain in joint, shoulder region Scapular dyskinesis Lack of coordination [facility]* Diagnosis Pain in female genitalia on intercourse Dyspareunia Endometriosis Endometriosis, site unspecified documented in this encounter [facility] HealthcareEvaluation noteNo assessment information availableC[facility] Work Phone: Evaluation note* Diagnosis Missed menses , unspecified gestational age Encounter for supervision of normal first in first trimester documented [facility]* Diagnosis Nonintractable episodic headache, unspecified headache type- Primary Second trimester ([facility]) state, incidental 13 weeks gestation of ([facility]) documented in [facility]* Diagnosis Sinusitis, unspecified chronicity, unspecified location- Primary Second trimester ([facility]) state, incidental 17 weeks gestation of ([facility]) Screening, , for anatomic survey ([facility]) Encounter for anatomic survey documented [facility]* Diagnosis 20 weeks gestation of ([facility]) Second trimester ([facility]) state, incidental Diabetes mellitus screening Screening for diabetes mellitus documented [facility]* Diagnosis Wellness examination- Primary Hypertension, unspecified type Lipid screening Screening for lipoid disorders documented [facility]* Diagnosis Wellness examination- Primary Hypertension, unspecified type Lipid screening Screening for lipoid disorders 24 weeks gestation of ([facility]) Second trimester ([facility]) state, incidental Elevated glucose tolerance test Impaired glucose tolerance test documented in [facility]* Diagnosis Gestational diabetes mellitus (GDM) in second trimester, gestational diabetes method of control unspecified [facility] Diagnosis Wellness examination- Primary Hypertension, unspecified type Lipid screening Screening for lipoid disorders 26 weeks gestation of ([facility]) Second trimester ([facility]) state, incidental induced hypertension, antepartum ([facility]) Transient hypertension of , antepartum Gestational diabetes mellitus (GDM) in second trimester, gestational diabetes method of control unspecified ([facility]) documented [facility]* Diagnosis Wellness examination- Primary Hypertension, unspecified type Lipid screening Screening for lipoid disorders Hypertension affecting , antepartum ([facility])- Primary 27 weeks gestation of ([facility]) Second trimester ([facility]) state, incidental documented [facility]* Diagnosis Diet controlled gestational diabetes mellitus (GDM) in second trimester- Primary Essential hypertension affecting in third trimester [facility] Diagnosis 28 weeks gestation of - Primary Insulin controlled gestational diabetes mellitus (GDM) in second trimester Essential hypertension affecting in third trimester [facility]* Diagnosis Essential hypertension affecting in third trimester [facility] Diagnosis Wellness examination- Primary Hypertension, unspecified type Lipid screening Screening for lipoid disorders 29 weeks gestation of ([facility]) Third trimester ([facility]) state, incidental Hypertension affecting , antepartum ([facility]) Gestational diabetes mellitus (GDM), antepartum, gestational diabetes method of control unspecified([facility]) documented in this encounter [facility]* Diagnosis Insulin controlled gestational diabetes mellitus (GDM) in third trimester- Primary Essential hypertension affecting in third trimester [facility] Diagnosis Insulin controlled gestational diabetes mellitus (GDM) in second trimester [facility] Diagnosis Insulin controlled gestational diabetes mellitus (GDM) in second trimester documented in [facility]* Diagnosis Wellness examination- Primary Hypertension, unspecified type Lipid screening Screening for lipoid disorders Third trimester (HHS-HCC) state, incidental 31 weeks gestation of (HHS-HCC) Pre-eclampsia in third trimester (HHS-HCC) documented in this encounter [facility] HealthcareEvaluation [facility]* Diagnosis Insulin controlled gestational diabetes mellitus (GDM) in third trimester- Primary Essential hypertension affecting in third trimester [facility] Narrative - Reported* Type Description Date Medical History headache Surgical HistoryappendectomySurgical Historyshoulder surgerySurgical History endometriosis VIEO Other History of Present illness Narrative* 26 [...] engaged x 1 year * working at [employer] in [place] [address] Work Phone: Hospital course Narrative No data available for this section [facility] No data available for this section [facility]ructionsNot on filedocumented in this encounter [facility] filedocumented in this encounter [facility]ructionsNot on filedocumented in this encounter [facility]InstructionsNot on filedocumented in this encounter [facility]* Attachments The following attachments cannot be sent through Care Everywhere. * Preeclampsia (Yemeni) documented in this encounterPro[facility]ica Health SystemInstructionsNot on file documented in this encounterProMedica Health SystemInstructionsNot on file documented in this encounterProMedica Health SystemInstructionsNot on file documented in this encounterProMedica Health SystemInstructionsNot on file documented in this encounterProMedica Health SystemProgress note No data available for this section [facility] HospitalReason for visit NarrativePT HERE AT REQUEST OF DR RODRÍGUEZ FOR EVALUATION AND TREATMENT OF ELVATED LIVER FUNCTION- ( DR. SAMUEL PT), LABS FROM DR RODRÍGUEZ REVIEWED BY DR Iraheta [employer] Other Summary Purpose Family History Unknown Family [...] Bilateral ureterolysis Surgeon: Dr. Charlene Rodriguez Resident/Fellow/Other Cross Country Coach: Glory Palacio Anesthesia: general I.V. 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 Reason for Referral SpecialtyDiagnoses / ProceduresReferred By ContactReferred To ContactMR IMAGING Diagnoses Pelvic and perineal pain Procedures MRI FEMALE PELVIS WO/W IVCON MRI PELVIS W/O & W/CONTRAST MATERIAL Charlene Rodriguez DO [address] [place] [address] Mr Imaging Referral IDStatusReasonMark DateExpiration DateVisits RequestedVisits [id number] Auto-Generated Referral /[id number] / ProceduresReferred By ContactReferred To [facility] Diagnoses Constipation, unspecified constipation type High-tone pelvic floor dysfunction Diastasis of rectus abdominis Dysmenorrhea Other specified dyspareunia Chronic pelvic pain in female Procedures CONSULT TO PHYSICAL THERAPY PHYSICAL THERAPY EVALUATION HIGH COMPLEX 45 MINS Jihan Downs, BUSINESS INTELLIGENCE ARCHITECT.SUPERVISOR [employer] [address] [facility] [address] [place] [address] [facility] [address] [place] [id number] Referral IDStatLulacaterina DateExpiration DateVisits RequestedVisits [id number] Review Auto-Generated Referral / Chief Complaint and Reason for Visit Chief Complaint Admit Date N94.10 N80.9 February 02, 2025 3:1 6pm Additional Source Comments INFORMATION SOURCE (unrecogn ized section and content) DATE CREATED AUTHOR 10/26/2020 [facility] DATE CREATED AUTHOR AUTHOR'S ORGANIZ ATION 11/06/2020 [facility] DATE CREATED AUTHOR AUTHOR'S ORGANIZ ATION 12/17/2020 [facility] DATE CREATED AUTHOR AUTHOR'S ORGANIZ ATION 04/21/2021 [facility] DATE CREATED AUTHOR AUTHOR'S ORGANIZ ATION 06/05/2021 [facility] DATE CREATED AUTHOR AUTHOR'S ORGANIZ ATION 10/02/2021 [facility] DATE CREATED AUTHOR AUTHOR'S ORGANIZ ATION 02/10/2022 [facility] DATE CREATED AUTHOR AUTHOR'S ORGANIZ ATION 12/05/2022 [facility] DATE CREATED AUTHOR AUTHOR'S ORGANIZ ATION 04/30/2024 [facility] DATE CREATED AUTHOR AUTHOR'S ORGANIZ ATION 02/09/2025 [facility] DATE CREATED AUTHOR AUTHOR'S ORGANIZ ATION 03/15/2025 [facility] DATE CREATED AUTHOR AUTHOR'S ORGANIZ ATION 08/03/2025 [facility] DATE CREATED AUTHOR AUTHOR'S ORGANIZ ATION 08/13/2025 [facility] DATE CREATED AUTHOR AUTHOR'S ORGANIZ ATION 08/16/2025 [facility] DATE CREATED AUTHOR AUTHOR'S ORGANIZ ATION 08/20/2025 [facility] DATE CREATED AUTHOR AUTHOR'S ORGANIZ ATION 08/21/2025 [facility] DATE CREATED AUTHOR AUTHOR'S ORGANIZ ATION 08/29/2025 [facility] DATE CREATED AUTHOR AUTHOR'S ORGANIZ ATION 09/12/2025 [facility] DATE CREATED AUTHOR AUTHOR'S ORGANIZ ATION 10/02/2025 [facility] DATE CREATED AUTHOR AUTHOR'S ORGANIZ ATION 10/08/2025 [facility] Care Team (unrecognized sect ion and content) Team MemberRelationshipSpecialtyStart DateEnd Date Denny Rodríguez MD [address] [place] [address] PCP - GeneralFamily Medicine12/03/14Team MemberRelationshipSpecialtyStart DateEnd Date Denny Rodríguez MD [address] [place] [address] PCP - GeneralFamily Medicine12/03/14Team MemberRelationshipSpecialtyStart DateEnd Date Denny Rodríguez MD [address] [place] [address] PCP - GeneralFamily Medicine12/03/14Team MemberRelationshipSpecialtyStart DateEnd Date Denny Rodríguez MD [address] [place] [address] PCP - GeneralFamily Medicine12/03/14Team MemberRelationshipSpecialtyStart DateEnd Date Denny Rodríguez MD [address] [place] [address] PCP - GeneralFamily Medicine12/03/14Team MemberRelationshipSpecialtyStart DateEnd Date Denny Rodríguez MD [address] [place] [address] PCP - GeneralFamily Medicine12/03/14Team MemberRelationshipSpecialtyStart DateEnd Date Denny Rodríguez MD [address] [place] [address] PCP - GeneralFamily Medicine12/03/14Team MemberRelationshipSpecialtyStart DateEnd Date Denny Rodríguez MD [address] [place] [address] PCP - GeneralFamily Medicine12/03/14Team MemberRelationshipSpecialtyStart DateEnd Date Denny Rodríguez MD [address] [place] [address] PCP - GeneralFamily Medicine12/03/14Team MemberRelationshipSpecialtyStart DateEnd Date Denny Rodríguez MD [address] [place] [address] [facility] - [facility]12/03/14Team MemberRelationshipSpecialtyStart DateEnd Date Denny Rodríguez MD [address] [place] [address] PCP - [place] Oovcxwlrjo49/1/21 Denny Rodríguez MD [address] [place] [address] PCP - GeneralFamdly Medicine04/10/23 Denny Rodríguez MD [address] [place] [address] PCP - [facility]02/24/23 [facility] NP [address] [place] [address] Nurse [facility]10/05/23 Trista Thao NP [address] [place] [address] Nurse PractitionerPulmonary Yinuowg42/10/23Team MemberRelationshipSpecialtyStart DateEnd Date Denny Rodríguez MD [address] [place] [phone] PCP - GeneralFamily Medicine12/03/14Team MemberRelationshipSpecialtyStart DateEnd Date Denny Rodríguez MD [address] [place] [phone] PCP - GeneralH[facility] Systemly Medicine12/03/14Team MemberRelationshipSpecialtyStart DateEnd Date Denny Rodríguez MD [address] [place] [id number] PCP - [place] Iekgueamfx79/1/21 Denny Rodríguez MD [address] [place] [id number] PCP - [facility]02/24/23 Eliceo Beltran DO [address] [place] [address] PCP - Generalmily Medicine02/14/24Team MemberRelationshipSpecialtyStart DateEnd Date Denny Rodríguez MD [address] [place] [address] PCP - [place] Brqfetydve79/1/21 Denny Rodríguez MD [address] [place] [address] PCP - [facility]02/24/23 Eliceo Beltran DO [address] [place] [address] PCP - [facility] Medicine02/14/24Team MemberRelationshipSpecialtyStart DateEnd Date Denny Rodríguez MD [address] [place] [address] PCP - [place] Qlxaupntbp90/1/21 Denny Rodríguez MD [address] [place] [address] PCP - [facility]02/24/23 Eliceo Beltran DO [address] [place] [address] PCP - [facility]02/14/24Team MemberRelationshipSpecialtyStart DateEnd Date Denny Rodríguez MD [address] [place] [address] PCP - [place] Cksytbsofv00/1/21 Denny Rodríguez MD [address] [place] [address] PCP - [facility]02/24/23 Eliceo Beltran DO [address] [place] [address] PCP - [facility]02/14/24Team MemberRelationshipSpecialtyStart DateEnd Date Denny Rodríguez MD [address] [place] [address] PCP - [place] Nhjvsefetb94/1/21 Denny Rodríguez MD [address] [place] [address] PCP - [facility]02/24/23 Eliceo Beltran DO [address] [place] [address] PCP - GeneralFamily Medicine02/14/24Team MemberRelationshipSpecialtyStart DateEnd Date Denny Rodríguez MD [address] [place] [address] PCP - [place] Rjkyjjpzak69/1/21 Eliceo Beltran DO [address] [place] [address] PCP - Generalmily Medicine02/14/24Team MemberRelationshipSpecialtyStart DateEnd Date Eliceo Beltran DO [address] [place] [address] PCP - GeneralFamily Medicine02/14/24Team MemberRelationshipSpecialtyStart DateEnd Date Eliceo Beltran DO [address] [place] [address] PCP - Generalmily Medicine02/14/24 Team Status: Active Member Role Status Dates Denny Rodríguez MD Primary Care Provider Active Team Status: Inactive Member Role Status Dates Denny Rodríguez MD Primary Care Provider Active S tart: February 02, 2025 End: February 02aminta Pop DOAttending ProviderActiveStart: February 02, 2025 End: February 02, 2025Team MemberRelationshipSpecialtyStart DateEnd Date Eliceo Beltran DO [address] [place] [address] PCP - [facility] Medicine02/14/24 Eliceo Beltran DO [address] [place] [address] PCP - [facility] [facility]07/27/2412Team MemberRelationshipSpecialty Start DateEnd Date Eliceo Beltran DO [address] [place] [address] PCP - [facility] Medicine02/14/24 Eliceo Beltran DO [address] [place] [address] PCP - [facility] [place] [facility]07/27/2412Team MemberRelationshipSpecialty Start DateEnd Date Eliceo Beltran DO [address] [place] [address] PCP - [facility] Medicine02/14/24 Eliceo Beltran DO [address] [place] [address] PCP - [facility] [place] [facility]07/27/2412Team MemberRelationshipSpecialty Start DateEnd Date Elieco Beltran DO [address] [place] [address] PCP - [facility] Medicine02/14/24 Eliceo Beltran DO [address] [place] [address] PCP - [facility] [place] [facility]07/27/2412Te MemberRelationshipSpecialty Start DateEnd Date Eliceo Beltran, DO [address] [place] [address] PCP - [facility] Medicine02/14/24 Eliceo Beltran, DO [address] [place] [address] PCP - [facility] [place] [facility]07/27/2412Team MemberRelationshipSpecialty Start DateEnd Date Eliceo Beltran, DO [address] [place] [address] PCP - [facility] Medicine02/14/24 Eliceo Beltran, DO [address] [place] [address] PCP - [facility] [place] [facility]07/27/2412Team MemberRelationshipSpecialty Start DateEnd Date Eliceo Beltran, DO [address] [place] [address] PCP - [facility] Medicine02/14/24 Eliceo Beltran, DO [address] [place] [address] PCP - [facility] [place] [facility]07/27/2412Te MemberRelationshipSpecialty Start DateEnd Date Eliceo Beltran, DO [address] [place] [address] PCP - Generalmily Medicine02/14/24 Eliceo Beltran, [address] [place] [address] PCP - [facility] [place] [facility]07/27/2412Team MemberRelationshipSpecialty Start DateEnd Date Eliceo Beltran DO [address] [place] [address] PCP - [facility] Medicine02/14/24 Eliceo Beltran, [address] [place] [address] PCP - [facility]07/27/2412Team MemberRelationshipSpecialty Start DateEnd Date Eliceo Beltran DO [address] [place] [address] PCP - [facility] Medicine02/14/24 Eliceo Beltran DO [address] [place] [address] PCP - [facility] [facility]07/27/2412Team MemberRelationshipSpecialty Start DateEnd Date Eliceo Beltran DO [address] [place] [address] PCP - [facility] Medicine02/14/24 Eliceo Beltran DO [address] [place] [address] PCP - [facility] [facility]07/27/2412Team MemberRelationshipSpecialty Start DateEnd Date Denny Rodríguez MD [address] [place] [address] PCP - [facility] Medicine12/02/18 MemberRelationshipSpecialtyStart DateEnd Date Denny Rodríguez MD [address] [place] [address] PCP - [facility] Medicine12/02/18 MemberRelationshipSpecialtyStart DateEnd Date Eliceo Beltran, DO [address] [place] [address] PCP - [facility]02/14/24 Eliceo Beltran, DO [address] [place] [address] PCP - [facility] [facility]07/27/2412Te MemberRelationshipSpecialty Start DateEnd Date Eliceo Beltran, DO [address] [place] [address] PCP - [facility]02/14/24 Eliceo Beltran, DO [address] [place] [address] PCP - [facility] [facility]07/27/2412Te MemberRelationshipSpecialty Start DateEnd Date Eliceo Beltran, DO [address] [place] [address] PCP - [facility]02/14/24 Eliceo Beltran, DO [address] [place] [address] PCP - [facility] [facility]07/27/2412Team MemberRelationshipSpecialty Start DateEnd Date Eliceo Beltran DO [address] [place] [address] PCP - GeneralFamily Medicine02/14/24 Eliceo Beltran DO [address] [place] [address] PCP - [facility] [facility]07/27/2412Team MemberRelationshipSpecialty Start DateEnd Date Denny Rodríguez MD [address] [place] [address] PCP - GeneralFamily Medicine12/02/18Team MemberRelationshipSpecialtyStart DateEnd Date Eliceo Beltran DO [address] [place] [address] PCP - GeneralFamily Medicine02/14/24 Eliceo Beltran DO [address] [place] [address] PCP - [facility] [facility]07/27/2412Team MemberRelationshipSpecialty Start DateEnd Date Eliceo Beltran DO [address] [place] [address] PCP - GeneralFamily Medicine02/14/24 Eliceo Beltran DO [address] [place] [address] PCP - [facility] [facility]07/27/2412Team MemberRelationshipSpecialty Start DateEnd Date Denny Rodríguez MD [address] [place] [address] PCP - Generalmily Medicine12/02/18Team MemberRelationshipSpecialtyStart DateEnd Date Denny Rodríguez MD [address] [place] [address] [facility] - [facility]ly [facility]12/02/18Team MemberRelationshipSpecialtyStart DateEnd Date Eliceo Beltran DO [address] [place] [address] [facility] Eliceo Beltran DO [address] [place] [address] PCP - [facility] [place] [facility]07/27/2412Team MemberRelationshipSpecialty Start DateEnd Date Eliceo Beltran DO [address] [place] [address] PCP - [facility] Medicine02/14/24 Eliceo Beltran DO [address] [place] [address] PCP - [facility] [facility]07/27/2412Team MemberRelationshipSpecialty Start DateEnd Date Denny Rodríguez MD [address] [place] [address] [facility]12/02/18Team MemberRelationshipSpecialtyStart DateEnd Date Denny Rodríguez MD [address] [place] [address] PCP - GeneralFamily Medicine12/02/18Team MemberRelationshipSpecialtyStkinta DateEnd Date Denny Rodríguez MD [address] [place] [address] PCP - [place] Ewdtusduta62/1/ Denny Rodríguez MD [address] [place] [address] PCP - GeneralFamily Medicine Denny Rodríguez MD [address] [place] [address] PCP - [facility] Eliceo Beltran DO [address] [place] [address] P[facility] - [facility]02/14/24 Eliceo Beltran DO [address] [place] [address] PCP - [facility] [facility]07/27/2412 [facility] NP [address] [place] [address] Nurse PractitionerFamily Gmbiofcx28/10/235 Trista Thao NP [address] [place] [address] Nurse PractitionerPulmonary Ygluwms97/10/235Team MemberRelationship SpecialtyStart DateEnd Date Eliceo Beltran DO [address] [place] [address] PCP - GeneralFamily Medicine02/14/24 Eliceo Beltran [address] [place] [address] PCP - [facility] [place] [facility]07/27/2412Team MemberRelationshipSpecialty Start DateEnd Date Denny Rodríguez MD [address] [place] [address] PCP - GeneralFamily Medicine12/02/18 Source Comments (unrecognize d section and content) In the event this informatio n is protected by the Federal Confidentiality of Alcohol and Drug Abuse Patient Records regulations: The Federal rules restrict any use of the information to criminally investigate or prosecute any alcohol or drug abuse patient.[facility] the event this information is protected by the Federal Confidentiality of Alcohol and Drug Abuse Patient Records regulations: The Federal rules restrict any use of the information to criminally investigate or prosecute any alcohol or drug abuse patient.[facility] Hospital[facility] the event this information is protected by the Federal Confidentiality of Alcohol and Drug Abuse Patient Records regulations: The Federal rules restrict any use of the information to criminally investigate or prosecute any alcohol or drug abuse patient.[facility] the event this information is protected by the Federal Confidentiality of Alcohol and Drug Abuse Patient Records regulations: The Federal rules restrict any use of the information to criminally investigate or prosecute any alcohol or drug abuse patient.[facility] Hospital[facility] the event this information is protected by the Federal Confidentiality of Alcohol and Drug Abuse Patient Records regulations: The Federal rules restrict any use of the information to criminally investigate or prosecute any alcohol or drug abuse patient.[facility] HospitalIn the event this information is [...] or prosecute any alcohol or drug abuse patient.[facility] HospitalIn the event this information is protected by the Federal Confidentiality of Alcohol and Drug Abuse Patient Records regulations: The Federal rules restrict any use of the information to criminally investigate or prosecute any alcohol or drug abuse patient.[facility] HospitalIn the event this information is protected by the Federal Confidentiality of Alcohol and Drug Abuse Patient Records regulations: The Federal rules restrict any use of the information to criminally investigate or prosecute any alcohol or drug abuse patient.[facility] HospitalIn the event this information is protected by the Federal Confidentiality of Alcohol and Drug Abuse Patient Records regulations: The Federal rules restrict any use of the information to criminally investigate or prosecute any alcohol or drug abuse patient.[facility] HospitalIn the event this information is protected by the Federal Confidentiality of Alcohol and Drug Abuse Patient Records regulations: The Federal rules restrict any use of the information to criminally investigate or prosecute any alcohol or drug abuse patient.[facility] HospitalIn the event this information is protected by the Federal Confidentiality of Alcohol and Drug Abuse Patient Records regulations: The Federal rules restrict any use of the information to criminally investigate or prosecute any alcohol or drug abuse patient.[facility] HospitalIn the event this information is protected by the Federal Confidentiality of Alcohol and Drug Abuse Patient Records regulations: The Federal rules restrict any use of the information to criminally investigate or prosecute any alcohol or drug abuse patient.[facility] HospitalIn the event this information is protected by the Federal Confidentiality of Alcohol and Drug Abuse Patient Records regulations: The Federal rules restrict any use of the information to criminally investigate or prosecute any alcohol or drug abuse patient.[facility] HospitalIn the event this information is protected by the Federal Confidentiality of Alcohol and Drug Abuse Patient Records regulations: The Federal rules restrict any use of the information to criminally investigate or prosecute any alcohol or drug abuse patient.[facility] Reason for Visit (unrecogniz ed section and content) ReasonCommentsMenstrual ProblemReasonCommentsVaginal BleedingReasonComments EndometriosisReasonCommentsInsurance AuthorizationOrilissaReasonCommentsPelvic PainSpecialtyDiagnoses / ProceduresReferred By ContactReferred To ContactOB/QA ENGINEER / GYNECOLOGY Diagnoses Painful menstrual periods Painful Periods Procedures OFFICE/OUTPATIENT ESTABLISHED SF MDM 10-19 MIN EST WHI PATIENT Jihan Downs, BUSINESS INTELLIGENCE ARCHITECT.SUPERVISOR [employer] [address] [place] [id number] Jihan Downs, BUSINESS INTELLIGENCE ARCHITECT.SUPERVISOR [employer] [address] [place] [id number] Referral IDStatusReasonStart DateExpiration DateVisits RequestedVisits [id number]/[id number] MRI SpecialtyDiagnoses / ProceduresReferred By ContactReferred To ContactMR IMAGING Diagnoses Pelvic and perineal pain Procedures MRI FEMALE PELVIS WO/W IVCON MRI PELVIS W/O & W/CONTRAST MATERIAL Charlene Rodriguez DO [address] [place] [address] Mr Imaging [place] [address] Referral IDStatusReasonStart DateExpiration DateVisits RequestedVisits [id number] Auto-Generated Referral /[id number] DateCommentsRefill Rtrfztu5501/02/2024eason CommentsMenorrhagiaCramping with bleedingReasonCommentsSurgery Cancelled SpecialtyDiagnoses / ProceduresReferred By ContactReferred To Contact Diagnoses Preeclampsia, severe, third trimester Procedures O14.13 - Preeclampsia, severe, third trimester Kathe Ryder, [address] [place] [address] [facility] [address] [place] [address] Referral IDStatusReasonStart DateExpiration DateVisits RequestedVisits [id number] Pressure CheckReasonCommentsDysmenorrhea ReasonCommentsWell Women VisitReasonCommentsShoulder PainReasonCommentsPainful IntercourseReasonCommentsAmenorrheaReasonCommentsRoutine VisitReason CommentsGestational DiabetesSpecialtyDiagnoses / ProceduresReferred By Contact Referred To ContactMaternal and Medicine Diagnoses Gestational diabetes mellitus (GDM) in second trimester, gestational diabetes method of control unspecified Nathan Pop, DO [address] [place] [address] [place] [address] Phone: tel: fax: [facility]- Medicine at [facility] [address] [place] [address] Phone: tel: fax: Referral IDStatusReasonStart DateExpiration DateVisits RequestedVisits [id number] Review Specialty Services Required /[id number] consult Scheduled Active and Recently Administ ered [...] every 2-3 minutes with cervical changes or Freedom units (MVU) greater than 200 in a [...] BE BASED ON THE PRIMARY CLINICAL RECORDS. [employer] provides no warranty or guarantee of the accuracy or completeness of information in this document.
--- OUTSIDE RECORDS SUMMARY | 2025-10-24 10:09 | XMS_ITS | Encounter Summary ---
Author Organization [facility] Address [address] [place] [address] Care Team Providers Care Robotic Maintenance Technician Name Role Phone NirajEliceo kauffman Primary Care Provider [phone] Charlottecarol Eliceo Hurtado DO Unavailable [phone] Encounter Details DateTypeDepartmentCare Team (Latest Contact Info)Fjscukfpbdw48/21/2025External Result Encounter [facility] Department Unsolicited Nathan Pop DO [address] [facility] [address] [place] [address] Social History Tobacco UseTypesPacks/DayYears UsedDateSmoking Tobacco: NeverSmokeless Tobacco: NeverAlcohol UseStandard Drinks/WeekCommentsNever0 (1 standard drink = 0.6 oz pure alcohol)caffeine: 1-2 cups per day, coffee and [id number] Health Literacy AnswerDate RecordedHow often do you [...] week12/29/2024How often do you attend adventism or quaker services?Patient /03/2025Do you belong to any clubs or organizations such as adventism groups, unions, fraCarefx or athletic leodan ups, or school groups?No12/29/2024How often do you attend meetings of the clubs or organizations you belong to?Patient jwhtilxl96/03/2025re you , , , , never , [...] Health Questionnaire-2 Score0 07/30/2025[facility] [place] of Occupational Health - Occupational Stress QuestionnaireAnswerDate RecordedDo you feel stress - tense, restless, nervous, or anxious, or unable to sleep at night because yourmind is troubled all the time - these days?Only a pndjxn0812/29/2024Exercise Vital SignAnswerDate Recorded On average, how many [...] sleep or slept in [facility] (including now)?No09/19/2023Housing Stability Vital SignAnswerDate RecordedIn the [...] have received?High school /29/2023 Estimated Date of YhjdyzyiJndqjuolSbb49/03/2026ased on last menstrual period of 02/21/2025Sex and Gender InformationValueDate RecordedSex Assigned at BirthNot on fileLegal PycFivhaj71/15/2023 7:18 PM EDTGender IdentityNot on file Sexual OrientationNot on 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 Not on fileNot on fileNot on filedocumented as of this encounter Plan of Treatment DateTypeDepartmentCare Team (Latest Contact Info)Otgospyyshn36/04/2025 9:00 AM ESTRoutine [facility] [address] [place] [address] Nathan Pop DO [address] [facility] [place] [address] documented as of this encounter Procedures Procedure NamePriorityDate/TimeAssociated DiagnosisCommentsCULTURE, URINE, JXGQKPUDEHY95/21/2025 1:30 PM EST documented in this encounter Results * Urine culture (10/16/2025 1:30 PM EST)ComponentValueRef RangeTest Method Analysis TimePerformed AtPathologist SignatureMERCY [facility] [place]?20,000 colonies/ml mixed ?bacterial skin contaminants ?2 Days 10/18/2025 10:10 AM [facility]tr[facility] (Source)Anatomical Location / LateralityCollection Method / VolumeCollection TimeReceived Time Clean-Voided Midstream (Clean Void Midstream)10/16/2025 1:30 PM EST10/16/2025 4:19 PM EST Narrative [facility] - 10/18/2025 10:10 AM EST Diagnosis: HIGH BLOOD PRESSURE Comment: Authorizing ProviderResult TypeResult StatusCorey Kiesha DOLAB MICROBIOLOGY - GENERAL ORDERABLESFinal ResultPerforming OrganizationAddressCity/State/ZIP Code Phone Number [facility] [address] [place] [address], [facility] [address] [facility] [place] [address] documented in this encounter Visit Diagnoses Not on filedocumented in this encounter Care Teams Team MemberRelationshipSpecialtyStart DateEnd Date Eliceo Beltran DO [address] [place] [address] PCP - GeneralFamily Medicine02/14/24 Eliceo Beltran DO [address] [place] [address] PCP - Medical [place] [employer]07/27/2412documented as of this encounter
--- OUTSIDE RECORDS SUMMARY | 2025-10-24 10:10 | XMS_ITS | Encounter Summary ---
Author Organization [facility] Address [address] [place] [address] Care Team Providers Care Senior Database Engineer Name Role Phone Eliceo Beltran DO Primary Care Provider [phone] CharlottecarolEliceo Unavailable [phone] Encounter Details DateTypeDepartmentCare Team (Latest Contact Info)Xfozyobghbz00/19/2025Bamboo flowsheet [facility] [place] [facility] [address] [facility] [place] [phone] Nathan Pop DO [address] [place], [place] [address] Social History Tobacco UseTypesPacks/DayYears UsedDateSmoking Tobacco: NeverSmokeless Tobacco: NeverAlcohol UseStandard Drinks/WeekCommentsNever0 (1 standard drink = 0.6 oz pure alcohol)caffeine: 1-2 cups per day, coffee and [id number] Health Literacy AnswerDate RecordedHow often do you [...] week12/29/2024How often do you attend jew or sikh services?Patient ublqzxrb93/03/2025Do you belong to any clubs or organizations such as jew groups, unions, [employer] or athletic leodan ups, or school groups?No12/29/2024How often do you attend meetings of the clubs or organizations you belong to?Patient ljahidqn54/03/2025re you , , , , never , [...] Health Questionnaire-2 Score0 07/30/2025[facility] [place] of Occupational Health - Occupational Stress QuestionnaireAnswerDate RecordedDo you feel stress - tense, restless, nervous, or anxious, or unable to sleep at night because yourmind is troubled all the time - these days?Only a zaggjk6412/29/2024Exercise Vital SignAnswerDate Recorded On average, how many [...] the highest degree you have received?High school vlrsyrhh04/29/2023 Estimated Date of ZyrzttzzTiurrruaMph09/03/2026ased on last menstrual period of 02/21/2025Sex and Gender InformationValueDate RecordedSex Assigned at BirthNot on fileLegal JjwCjremi86/15/2023 7:18 PM EDTGender IdentityNot on file Sexual OrientationNot on 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 Not on fileNot on fileNot on filedocumented as of this encounter Plan of Treatment DateTypeDepartmentCare Team (Latest Contact Info)Ksjihqzptuy28/04/2025 9:00 AM ESTRoutine [facility] [address] [facility] [place] [id number] Nathan Pop DO [address] [facility] [place] [address] documented as of this encounter Visit Diagnoses Not on filedocumented in this encounter Care Teams Team MemberRelationshipSpecialtyStart DateEnd Date Eliceo Beltran DO [address] [address] PCP - GeneralFamily Medicine02/14/24 Eliceo Beltran DO [address] [place] [address] PCP - Medical [place] [employer]07/27/2412documented as of this encounter
--- OUTSIDE RECORDS SUMMARY | 2025-10-24 10:10 | XMS_ITS | Clinical Summary ---
Author Organization [facility] Address [address] [place] [address] Care Team Providers Care Call Center Operator Name Role Phone Eliceo Beltran DO Primary Care Provider Eliceo Beltran DO Unavailable [phone] Allergies No known active allergies Medications MedicationSigDispense QuantityRefillsLast FilledStart DateEnd DateStatus metoprolol succinate XL (Toprol-XL) 25 MG 24 hr tablet Indications:Hypertension, unspecified typeTake 1 tablet by mouth daily 90 tablet 5Active Vit-Fe Fumarate-FA ( Vitamins) 28-0.8 MG tablet Indications:, unspecified gestational age ([facility]),Encounter for supervision of normal first in first trimester ([facility])Take 1 tablet by mouth Daily 30 tablet 110/6Active Alcohol Swabs (Alcohol Prep Pad) 70 % pads Indications:Gestational diabetes mellitus (GDM), antepartum, gestational diabetes method of control unspecified([facility]),Elevated glucose tolerance test Apply 1 Pad topically Daily Use four times daily to check FSBS. 150 each 5Active Blood Glucose Monitoring Suppl (D-Care Glucometer) w/Device kit Indications:Gestational diabetes mellitus (GDM), antepartum, gestational diabetes method of control unspecified([facility]),Elevated glucose tolerance test1 kit Daily [...] Inject 13 Units under the skin at aljuzsh96/21/2025Active Active Problems ProblemNoted DateDiagnosed Date33 weeks gestation of ([facility]) 10/14/2025Third trimester ([facility])10/14/20259500Rmzkgonn50/29/2025 Aansrzzokhh89/26/2024Obesity (BMI 30-39.9)02/19/2024cquired equinus deformity of foot03/29/2023isplacement of cervical intervertebral disc without myelopathy 03/29/20238794Qltjczxqbzrb83/04/9839Szmuosyvvtymg51/04/6326Mwvphrezftjod65/04/2023 Rjlibytwcvvq56/04/2023 Assessment & Plan (07/30/2025 4:00 PM EDT): Record Blood Pressures 2-4 times weekly and record. Return with readings at next appointment. Call with readings if sees significant changes Intractable migraine without aura and with status awijiajddbq87/04/2023Migraines 03/29/2023hronic pelvic pain in dkerjp1203/29/2023ain in female genitalia on eugnypvoepb01/04/2023ain on cmawnspnsp36/04/2023anic bmozfbia47/04/2023 Patellofemoral disorders, left knee03/29/2023atellofemoral disorders, right knee03/29/2023osterior calcaneal kgtynatjr08/04/2023Scapular dyskinesis 03/29/20238041Sncriftwa41/04/2023Seasonal allergic rhinitis due to pwpdxr7603/29/2023 Tachycardia, tqwrwpwqhy53/04/2023Tension nhsgdfha62/04/2023Vitamin B12 zolwlybgpu04/04/2023Vitamin D tzlescdmct35/04/2023hronic right shoulder pain 03/29/2023Estimated Date of TuvfzqdoNzevwthlHtn59/03/2026ased on last menstrual period of 02/21/2025 Encounters DateTypeDepartmentCare BdevFudseyfvsix74/22/2025linisync Result Encounter [facility] External Department Unsolicited Steph Keane, DEVYN 10/16/2025External Result Encounter NOMS External Department Unsolicited Nathan Pop, DO 10/16/2025linisync Result Encounter NOMS External Department Unsolicited Nathan Pop, DO 10/14/2025 3:30 PM ESTRoutine [facility] [address] [place] [address] Nathan Pop, DO 33 weeks gestation of ([facility]); Third trimester ([facility])10/14/2025amboo flowsheet [facility] [address] [place] [address] Nathan Pop, DO 10/13/20259612Jerodv49/17/2025linisync Result Encounter NOMS External Department Unsolicited Nathan Pop, DO 10/11/2025linisync Result Encounter NOMS External Department Unsolicited Nathan Pop, DO 10/09/2025bstract [facility] [address] [place] [address] Nathan Pop, DO 10/03/2025linisync Result Encounter NOMS External Department Unsolicited Steph Keane, DEVYN 10/01/2025Telephone [facility] OBGYRonen [address] [place] [place] [address] Nathan Pop, DO 09/30/2025 3:00 PM ESTRoutine [facility] Patti [place] [address] Nathan Pop, DO Third trimester ([facility]); 31 weeks gestation of ([facility]); Pre-eclampsia in third trimester ([facility])09/30/2025amboo flowsheet [facility] [place] [address] Nathan Pop, DO 09/26/2025linisync Result Encounter NOMS External Department Unsolicited Steph Keane NP 09/23/20258117Dnlwik81/25/2025linisync Result Encounter NOMS External Department Unsolicited Steph Keane NP 09/16/2025 3:20 PM EDTRoutine [facility] [address] [place] [place] [address] Nathan Pop, DO 29 weeks gestation of ([facility]); Third trimester ([facility]); Hypertension affecting , antepartum ([facility]); Gestational diabetes mellitus (GDM), antepartum, gestational diabetes method of control unspecified([facility])09/16/2025amboo flowsheet [facility] [address] [place] [place] [address] Nathan Pop, DO 09/11/2025bstract [facility] [place] [facility] [address] [place] [place] [address] Nathan Pop, DO 09/09/20251593Uhivjp55/09/2025 3:50 PM EDTRoutine [facility] [address] [place] [place] [address] Steph Keane NP Hypertension affecting , antepartum ([facility]) (Primary Dx); 27 weeks gestation of ([facility]); Second trimester ([facility])09/03/2025linisync Result Encounter NOMS External Department Unsolicited Nathan Pop, DO 09/03/2025amboo flowsheet [facility] [address] [place] [place] [address] Steph Keane NP 09/02/20252170Xcqicu53/04/2025linisync Result Encounter NOMS External Department Unsolicited Steph Keane NP 08/28/2025bstract [facility] [address] [place] [phone] Eliceo Beltran, DO 08/28/2025Telephone [facility] [address] [place] [place] [address] Radha Rahman MA 08/27/2025 3:20 PM EDTRoutine [facility] [address] [place] [place] [address] Steph Keane, DEVYN 26 weeks gestation of ([facility]); Second trimester ([facility]); induced hypertension, antepartum ([facility]); Gestational diabetes mellitus (GDM) in second trimester, gestational diabetes method of control unspecified ([facility])08/27/2025linisync Result Encounter NOMS External Department Unsolicited Steph Keane NP 08/27/2025linisync Result Encounter NOMS External Department Unsolicited Steph Keane NP 08/27/2025amboo flowsheet [facility] [place] [facility] [address] [place] [place] [address] Steph Keane NP 08/25/2025linisync Result Encounter NOMS External Department Unsolicited Provider, Generic External Data 08/20/2025bstract [facility] [address] [place] [place] [address] Nathan Pop, 08/20/2025Telephone [facility] [address] [place] [place] [address] Steph Keane, DEVYN 08/17/2025bstract [facility] [address] [place] [phone] Eliceo Beltran, DO 08/17/2025bstract [facility] [address] [place] [address] Eliceo Beltran, DO 08/17/2025Telephone [facility] [place] [facility] [address] [place] [place] [address] Nathan Pop, DO 08/13/2025bstract [facility] [address] [place] [place] [address] Nathan Pop, DO 08/12/2025 2:40 PM EDTRoutine [facility] [address] [place] [place] [address] Nathan Pop, DO 24 weeks gestation of ([facility]); Second trimester ([facility]); Elevated glucose tolerance test08/12/2025 2:00 PM EDTAncillary Procedure [facility] [address] [place] [place] [address] Encounter for follow-up ultrasound of anatomy ([facility])08/12/2025bstract [facility] [address] [place] [place] [address] Nathan Pop, DO 08/12/2025bstract [facility] [address] [place] [place] [address] Nathan Pop, DO 08/12/2025Telephone [facility] [address] [place] [address] Bill Gould LPN Cwvmzit9708/12/2025bstract [facility] [address] [place] [address] Eliceo Beltran, DO 08/04/2025bstract [facility] [address] [place] [place] [address] Nathan Pop, DO 08/04/2025[facility]phone [facility] [address] [place] [address] Blil Gould LPN Yonfvlj0107/30/2025 3:40 PM EDTOffice Visit [facility] [address] [place] [address] Eliceo Beltran, Wellness examination (Primary Dx); Hypertension, unspecified type ; Lipid zpjceddzl38/04/2025amboo flowsheet [facility] [address] [place] [address] Eliceo Beltran, 07/30/2025Travelfrom Last 3 Months Immunizations ImmunizationAdministration DatesNext DueDTP / HiB08/01/1996,1995, 1995DTaP, Iwiyuctgqcp69/08/2000,12/29/1997HPV, Hefprhjfrzeb26/17/2014, 05/04/2014,2014Hep A, Adult09/11/2014,2014Hep B, Adolescent or Yyaujjqqx59/06/1996,1995,1995IPV05/03/2000Influenza, seasonal, injectable, preservative free09/11/2014MMR05/03/2000,08/01/1996Meningococcal SQL3A4304/03/2007OPV08/01/1996,1995,1995Tdap2014 Family History Medical HistoryRelationNameCommentsAnemiaFatherColon cancerFatherCancerMaternal GrandfatherbutchHypertensionMaternal GrandfatherbutchBreast cancerMaternal GrandmotherHypertensionMotherdarleneColon cancerPaternal GrandfatherRelationName StatusCommentsFatherDeceasedMaternal GrandfatherbutchMaternal GrandmotherMother darleneAlivePaternal GrandfatherPaternal GrandmotherAlive Social History Tobacco UseTypesPacks/DayYears UsedDateSmoking Tobacco: NeverSmokeless Tobacco: Never Tobacco Cessation:Counseling Given: Not Answered Alcohol UseStandard Drinks/WeekCommentsNever0 (1 standard drink = 0.6 oz pure alcohol)caffeine: 1-2 cups per day, coffee and oogO3215 Health LiteracyAnswer Date RecordedHow often do you [...] relatives?Once a week12/29/2024How often do you attend buddhism or druze services?Patient qtyvsdzc95/03/2025Do you belong to any clubs or organizations such as buddhism groups, unions, fraternal or athletic leodan ups, [...] hard at all12/29/2024PHQ-2AnswerDate RecordedPatient Health Questionnaire-2 Score0 07/30/2025FinB[facility] - Occupational Stress QuestionnaireAnswerDate RecordedDo you feel stress - tense, restless, nervous, or anxious, or unable to sleep at night because yourmind is troubled all the time - these days?Only a udmcll4312/29/2024Exercise Vital SignAnswerDate Recorded On average, how many [...] steady place to sleep or slept in t[place]elter (including now)?No09/19/2023Housing Stability Vital SignAnswerDate RecordedIn the [...] the highest degree you have received?High school qpnpzirx31/29/2023 Estimated Date of HqfbconqOxcucpahLba46/03/2026ased on last menstrual period of 02/21/2025Sex and Gender InformationValueDate RecordedSex Assigned at BirthNot on fileLegal DeqWodxxd74/15/2023 7:18 PM EDTGender IdentityNot on file Sexual OrientationNot on 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 Not on fileNot on fileNot on file Last Filed Vital Signs Vital SignReadingTime TakenCommentsBlood Gjnvhsum035/8411 3:29 PM EST Ducit204707/30/2025 3:36 PM FHSVshscrdnehx13.2 ??C (97.1 ??F)07/30/2025 3:36 PM EDTRespiratory Zrwd819912/23/2022 4:16 PM ESTOxygen Kqhryxhbzi61%07/30/2025 3:36 PM EDTInhaled Oxygen Concentration--Bxgvxk59.3 kg (168 lb 1.9 oz)10/14/2025 3:29 PM WMCTaamzp362.5 cm (5' 2 )07/30/2025 3:36 PM EDTBody Mass Index30.75007/30/2025 3:36 PM EDT Plan of Treatment DateTypeDepartmentCare Team (Latest Contact Info)Napsuvndgye39/04/2025 9:00 AM ESTRoutine [facility] [address] [place] [place] [address] Nathan Pop, [address] [place] [address] Health MaintenanceDue DateLast DoneCommentsCOVID-19 Vaccine (2024- season) 2025Influenza Vaccine (#1)/Pap Smear08/18/2027 08/18/2024, 08/15/2023, 06/20/2022, Additional history existsCervical Cancer Gjwfkzegw92/09/2028HPV/Uyormd10neumococcal Vaccine: Pediatrics (0 to 5 Years) and At-Risk Patients (6 to 64 Years)Aged OutNo longer eligible based on patient's age to complete this topic Procedures Procedure NamePriorityDate/TimeAssociated DiagnosisCommentsUS OB BPP W NON-CJBCBB9510/17/2025 9:22 AM EST URINE CULTURE - LHXXRberhem46/21/2025 1:30 PM EST TB[facility] UA (CLEAN/CATCH) CORPORATE DEVELOPMENT OFFICER/MICRO IF IND.Xgqegrc7510/16/2025 1:30 PM EST CULTURE, URINE, IQZGJKLCLBA53/21/2025 1:30 PM EST POCT URINALYSIS XZHBSBUYZiflxeo87/19/2025 3:40 PM EST 33 weeks gestation of ([facility]) Third trimester ([facility]) C[facility] JHZJEdfpasg48/17/2025 8:28 PM EST SRMCOH PROTHROMBIN TIME INR W/O NQETGkuiicn25/17/2025 8:28 PM EST ALL YWKTdmcyfp13/17/2025 8:28 PM EST CCF FTQVoucagg00/17/2025 8:28 PM EST [facility] ZOWYnjnqow14/17/2025 8:28 PM EST ALL URIC KMZKTjhvzoz46/17/2025 8:28 PM EST TBH YQRCQCBMIGPyiygnr18/17/2025 8:28 PM EST ALL OOTCervggo76/17/2025 8:28 PM EST ALL CBC WITH AUTO RUVOVuxzxfa70/17/2025 8:28 PM EST TB[facility] URINE T PROTEIN CREAT AKPUSAqfdhdy46/17/2025 7:05 PM EST [facility] UA (CLEAN/CATCH) CORPORATE DEVELOPMENT OFFICER/MICRO IF IND.Rlffcas8710/12/2025 7:05 PM EST US OB BPP W NON-WTPFKW3810/11/2025 1:46 PM EST US OB BPP W NON-QLSTZR0010/03/2025 11:36 AM EST POCT URINALYSIS SFGBOXKMEpbcioc82/05/2025 3:13 PM EST Third trimester ([facility]) US OB BPP W NON-JVDRQV0709/26/2025 2:50 PM EDT US OB BPP W NON-OYNKFQ6709/19/2025 12:17 PM EDT POCT URINALYSIS DMHAPNWOMjpllps10/22/2025 4:09 PM EDT 29 weeks gestation of ([facility]) Third trimester ([facility]) ALL CBC WITH AUTO YZIGWazcoay12/09/2025 5:15 PM EDT MHPT JODEUIESSOZiqkazl58/09/2025 5:15 PM EDT CCF TQAPZswwibm16/09/2025 5:15 PM EDT SRMCOH PROTHROMBIN TIME INR W/O MWQGSbbpbjt61/09/2025 5:15 PM EDT CCF KHVZwzrhlj14/09/2025 5:15 PM EDT CCF LSFDsuvcgd37/09/2025 5:15 PM EDT ALL URIC IXMNQmtakph58/09/2025 5:15 PM EDT TBH NSZLOJMFKILkybqjq50/09/2025 5:15 PM EDT ALL FDOPorbhek57/09/2025 5:15 PM EDT TBH URINE T PROTEIN CREAT UPPMJYrpcgyx18/09/2025 5:05 PM EDT POCT URINALYSIS IWWCGSCIHzfzpbr13/09/2025 4:26 PM EDT 27 weeks gestation of ([facility]) TBH TOTAL PROTEIN 24 HOUR SQJUELafzyad16/04/2025 8:00 AM EDT US OB BPP W NON-RDTHFC9308/27/2025 6:02 PM EDT TBH URINE T PROTEIN CREAT UPCOVFyjnxox99/02/2025 5:50 PM EDT CCF DABIyddxmw88/02/2025 5:00 PM EDT CCF XNVUWjpuhgk76/02/2025 5:00 PM EDT SRMCOH PROTHROMBIN TIME INR W/O WLQZKgycfti47/02/2025 5:00 PM EDT ALL CRACwzzkxw83/02/2025 5:00 PM EDT CCF EYZVjoesja51/02/2025 5:00 PM EDT ALL URIC OAKLXlsfhgv59/02/2025 5:00 PM EDT TBH VWVPVGPSYYRgpzmyy23/02/2025 5:00 PM EDT ALL YNMEmbchsg25/02/2025 5:00 PM EDT ALL CBC WITH AUTO AEDRSfxlwwe37/02/2025 5:00 PM EDT POCT URINALYSIS RLXPFUKOEwrdnjs23/02/2025 3:53 PM EDT 26 weeks gestation of ([facility]) URINE CULTURE, HFBDZRDMrplsdr45/30/2025 8:10 AM EDT POCT URINALYSIS UCJGHARMDohffwg90/17/2025 2:39 PM EDT 24 weeks gestation of ([facility]) Second trimester ([facility]) US OB LIMITED 1+ GCAWPBOEtmbdqo55/17/2025 2:22 PM EDT Encounter for follow-up ultrasound of anatomy ([facility]) PAP NWOJTHavhiky16/23/2024 12:00 AM EDTTHINPREP PAP AND HPV MRNA E6/E7 W/RFL HPV 16,18/84Oknwyvp68/09/2023 4:00 PM EDT Well woman exam with routine gynecological exam from Last 3 Months or Most Recently Relevant to Health Maintenance Results * US OB BPP W NON-STRESS (10/17/2025 9:22 AM EST) Only the most recent of6 resultswithin the time period is included. Anatomical RegionLateralityModalityOtherSpecimen (Source)Anatomical Location / LateralityCollection Method / VolumeCollection TimeReceived Time10/17/2025 9:22 AM EST Narrative 10/17/2025 9:25 AM EST [facility] ?[address] ? [place] [address] ? Ultrasound Report ? Signed ? Patient: DRISS GAMA ?MR#: [id number] ?? : 1995 ?Acct:[id number] ?? Age/Sex: 30 / F ?ADM Date: 10/17/25 ?? Loc: US ? Attending Dr: Steph Keane ? Ordering Physician: Steph Keane ?? Date of Service: 10/17/25 ?? Procedure(s): US OB BPP w non-stress ?? Accession Number(s): [id number] ? cc: Steph Keane; Yomaira BELTRAN ? [facility] ? [address] ? [place] [address] ? Patient Name: ?? DRISS GAMA ? MRN: [facility]:[id number] ? date: 1995 ?Sex: F ?? Assigned Patient Location: FB ?? Current Patient Location: ? Accession/Order Number: [id number] ?? Exam Date: 10/17/2025 ??08:11 ?Report Date: 10/17/2025 ??09:22 ? At the request of: ?? STEPH ??ELSA ? Procedure: ??US OB BPP w non-stress ? Biophysical profile. ? Reason for exam: Gestational diabetes ? COMPARISON: 10/10/2025 ? TECHNIQUE: Transabdominal imaging of the gravid uterus was obtained. ? FINDINGS: The raised printer reports a BPP of 8 out of [...] Dictation Location: RADIO-PC-18 ? Electronically authenticated by: [id number] ??Y ?? Date: 10/17/2025 ??09:22 ? Dictated By: ?Junito Mcgrath M.D. ? Signed By: ?10/17/25924 ? DD/ 1 ? TD/TT: ? Extension Service Specialist: Procedure Note Radiology, Radiologist, MD - 10/17/2025 [place] [address] Ultrasound Report Signed Patient: DRISS GAMA [facility]#: [id number] : 1995Acct:[id number] Age/Sex: 30 / FADM Date: 10/17/25 Loc: US Attending Dr: Steph Keane Ordering Physician: Steph Keane Date of Service: 10/17/25 Procedure(s): US OB BPP w non-stress Accession Number(s): [id number] cc: Steph Keane; Yomaira BELTRAN [address] [address] Patient Name: DRISS GAMA MRN: [facility]:[id number] date: 1995 Sex: F Assigned Patient Location: [facility] Current Patient Location: Accession/Order Number: [id number] Exam Date: 10/17/2025 08:11 Report Date: 10/17/2025 09:22 At the request of: STEPH KEANE Procedure: US OB BPP w non-stress Biophysical profile. Reason for exam: Gestational diabetes COMPARISON: 10/10/2025 TECHNIQUE: Transabdominal imaging of the gravid uterus was obtained. FINDINGS: The raised printer reports a BPP of 8 out of 8. LEONEL is normal at13.2 cm. heart rate 144 bpm. Nuchal cord is present. US/US OB BPP w non-stress IMPRESSION: BPP 8 out of 8. Nuchal cord is present. This was reported to the nurse by the blood bank laboratory technologist. Impression dictated by: Junito Mcgrath Jr., D.O. 10/17/2025 9:22 AM Dictation Location: [place] [address] Electronically authenticated by: [id number] Y Date: 509:22 Dictated By: Junito Mcgrath M.D. Signed By:10/17/25924 DD/ 1 TD/TT: Extension Service Specialist: Authorizing ProviderResult TypeResult StatusSteph Keane NPCLINISYNC IMAGING [...] StatusCorey Kiesha DOLAB BLOOD ORDERABLES Final ResultPerforming OrganizationAddressty/State/ZIP CodePhone Number CLINISYNC [facility] * (ABNORMAL) [facility] UA (CLEAN/CATCH) CORPORATE DEVELOPMENT OFFICER/MICRO IF IND. (10/16/2025 1:30 PM EST) Only [...] Performing OrganizationAddressCity/State/ZIP CodePhone Number CLINIS[facility]NC [facility] * Urine culture (10/16/2025 1:30 PM EST)ComponentValueRef RangeTest Method Analysis TimePerformed AtPathologist SignatureFRMC NOTE?20,000 colonies/ml mixed ?bacterial skin contaminants ?2 Days 10/18/2025 10:10 AM [facility] CtrSpecimen (Source)Anatomical Location / LateralityCollection Method / VolumeCollection TimeReceived Time Clean-Voided Midstream (Clean Void Midstream)10/16/2025 1:30 PM EST10/16/2025 4:19 PM EST Narrative [facility] - 10/18/2025 10:10 AM EST Diagnosis: HIGH BLOOD PRESSURE Comment: Authorizing ProviderResult TypeResult StatusCorey Kiesha DOLAB MICROBIOLOGY - GENERAL ORDERABLESFinal ResultPerforming OrganizationAddressCity/State/ZIP Code Phone Number [facility] [address] [place] [address], [facility] [address] [place] [address] * (ABNORMAL) POCT urinalysis dipstick manually resulted [...] / Laterality Collection Method / VolumeCollection TimeReceived QlzmOpuwu31/19/2025 3:40 PM EST Narrative Authorizing ProviderResult TypeResult StatusCorey Kiesha DOPOINT OF CARE TEST ENTER/EDIT ORDERABLESFinal Result * [facility] CREATININE (10/12/2025 8:28 PM EST) Only the most recent of3 resultswithin the time period is included. ComponentValueRef RangeTest MethodAnalysis TimePerformed AtPathologist Signature CREATININE0.740.55 - 1.02 mg/dLTBHTBH EGFR-AF ESTONIAN>60>=60 mL/min/1.73m 2TBH TBH EGFR-NON AF ESTONIAN>60>=60 mL/min/1.73m 2TBHSpecimen (Source)Anatomical Location / LateralityCollection Method / VolumeCollection TimeReceived Time 10/12/2025 8:28 PM EST10/12/2025 8:39 PM EST Narrative [facility] - 10/12/2025 8:59 PM EST Authorizing ProviderResult TypeResult StatusCorey Kiesha DOCLINISYNCFinal Result Performing OrganizationAddressCity/State/ZIP CodePhone Number [facility] * SRM[facility] PROTHROMBIN TIME INR W/O [...] Kiesha DOCLINISYNCFinal Result Performing OrganizationAddressCity/State/ZIP CodePhone Number [facility] * [facility] AST (10/12/2025 8:28 PM EST) Only the most recent of3 resultswithin the time period is included. ComponentValueRef RangeTest MethodAnalysis TimePerformed AtPathologist Signature ASPARTATE AMINO [id number] - 37 U/LTBHSpecimen (Source)Anatomical Location / LateralityCollection Method / VolumeCollection TimeReceived Time10/12/2025 8:28 PM EST10/12/2025 8:39 PM EST Narrative [facility] - 10/12/2025 8:59 PM EST Authorizing ProviderResult TypeResult StatusCorey Kiesha DOCLINISYNCFinal Result Performing OrganizationAddressCity/State/ZIP CodePhone Number [facility] * CCF APTT (10/12/2025 8:28 PM [...] Kiesha DOCLINISYNCFinal Result Performing OrganizationAddressCity/State/ZIP CodePhone Number [facility] * C[facility] ALT (10/12/2025 8:28 PM EST) Only the most recent of3 resultswithin the time period is included. ComponentValueRef RangeTest MethodAnalysis TimePerformed AtPathologist Signature ALANINE [id number] - 59 U/LTBHSpecimen (Source)Anatomical Location / LateralityCollection [...] Kiesha DOCLINISYNCFinal Result Performing OrganizationAddressCity/State/ZIP CodePhone Number [facility] * ALL [facility] (10/12/2025 8:28 PM EST) Only the most recent of2 resultswithin the time period is included. ComponentValueRef RangeTest MethodAnalysis TimePerformed AtPathologist Signature LACTATE [id number] - 234 U/LTBHSpecimen (Source)Anatomical Location / LateralityCollection Method / VolumeCollection TimeReceived Time10/12/2025 8:28 PM EST10/12/2025 8:39 PM EST Narrative [facility] - 10/12/2025 8:59 PM EST Authorizing ProviderResult TypeResult StatusCorey Kiesha DOCLINISYNCFinal Result Performing OrganizationAddressCity/State/ZIP CodePhone Number [facility] * (ABNORMAL) ALL CBC WITH AUTO [...] - 35.2 g/dLTBHTBH RDW13.211.0 - 15.0 %TBHTBH [id number] - 450 10 3/uLTBHTBH MPV9.69.5 - 13.5 [...] RangeTest MethodAnalysis TimePerformed AtPathologist Signature BLOOD UREA JAWHAXAB48.07.0 - 18.0 mg/dLTBHSpecimen (Source)Anatomical Location / LateralityCollection [...] MethodAnalysis TimePerformed AtPathologist Signature TOTAL PROTEIN URINE NOABLO57.5(H)<=11.9 mg/dLTBHCREATININE URINE GWAOSR10.21 20.00 - 300.00 mg/dLTBHPROTEIN CREATININE RATIO URINE0.16TBHSpecimen (Source) Anatomical Location / LateralityCollection Method / VolumeCollection Time Received Time10/12/2025 7:05 PM EST10/12/2025 10:30 PM EST Narrative [facility] - 10/12/2025 10:40 PM EST Authorizing ProviderResult TypeResult StatusCorey Kiesha DOCLINISYNCFinal Result Performing OrganizationAddressCity/State/ZIP CodePhone Number CLINISYNC [facility] * (ABNORMAL) MHPT FIBRINOGEN (09/03/2025 5:15 PM EDT)ComponentValueRef RangeTest MethodAnalysis TimePerformed AtPathologist VflrxdjiaCMEPFRQUQY238(H)200 - 400 mg/dLTBHSpecimen (Source)Anatomical Location / LateralityCollection Method / VolumeCollection TimeReceived Time09/03/2025 5:15 PM EDT1 5:21 PM EDT Narrative CLINISYNC - 09/03/2025 5:45 PM EDT Authorizing ProviderResult TypeResult StatusCorey Kiesha DOCLINISYNCFinal Result Performing OrganizationAddressCity/State/ZIP CodePhone Number CLINISYNC [facility] * (ABNORMAL) [facility] TOTAL PROTEIN 24 HOUR URINE (08/29/2025 8:00 AM EDT)Component ValueRef RangeTest MethodAnalysis TimePerformed AtPathologist SignatureTOTAL PROTEIN URINE TVJIHG62.6(H)<=11.9 mg/dLTBHTOTAL VOLUME 24 HOUR HTIBU158rK/24hr TBHTBH TOTAL PROTEIN 24 HOUR QTGZG460.6<=149.1 mg/24hrTBHSpecimen (Source) Anatomical Location / LateralityCollection Method / VolumeCollection Time Received Time08/29/2025 8:00 AM EDT1 10:35 AM EDT Narrative CLINISYNC - 08/29/2025 12:08 PM EDT Authorizing ProviderResult TypeResult StatusGeneric External Data Provider CLINISYNCFinal ResultPerforming OrganizationAddressCity/State/ZIP CodePhone Number CLINISYNC [facility] * URINE CULTURE, ROUTINE (08/25/2025 8:10 AM EDT)ComponentValueRef RangeTest MethodAnalysis TimePerformed AtPathologist SignatureURINE CULTURE, ROUTINE ??Urine Culture, Routine TBHURINE CULTURE, ROUTINEMixed urogenital floraTBHURINE CULTURE, DWYRFYB74,000- 50,000 colony forming units per mLTBHURINE CULTURE, ROUTINEPerformed at: [facility] LabMyMichigan Medical Center West BranchTBHURINE CULTURE, [id number] [place], [place] [address]ERA URINE CULTURE, ROUTINELab Director: Cm Sandoval PhD, Phone: [phone] Specimen (Source)Anatomical Location / LateralityCollection Method / Volume Collection TimeReceived Time08/25/2025 8:10 AM EDT08/25/2025 8:30 AM EDT Narrative CLINISYNC - 08/26/2025 10:07 PM EDT Authorizing ProviderResult TypeResult StatusGeneric External Data ProviderLAB BLOOD ORDERABLESFinal ResultPerforming OrganizationAddressCity/State/ZIP Code Phone Number [facility] * US OB limited 1+ fetuses [...] PM EDT) Narrative Authorizing ProviderResult TypeResult StatusAmy Beaverdam PALAB BLOOD ORDERABLES Final ResultPerforming OrganizationAddressCity/State/ZIP CodePhone Number EXTERNAL LAB from Last 3 Months or Most Recently Relevant to Health Maintenance Insurance Care Teams Team MemberRelationshipSpecialtyStart DateEnd Date Eliceo Beltran DO [address] [place] [address] PCP - GeneralFamily Medicine02/14/24 Eliceo Beltran DO [address] [place] [address] PCP - Medical [place] [employer]07/27/2412
--- OUTSIDE RECORDS SUMMARY | 2025-10-24 10:10 | XMS_ITS | Clinical Summary ---
Author Organization [employer] tem Address [facility] [id number] [address] [place] [address] Care Team Providers Care Nutrition Specialist Name Role Phone Cruz Rodríguez MD Primary Care Provider [phone] Allergies No known active allergies Medications MedicationSigDispense [...] ProblemNoted DateDiagnosed DateEssential hypertension affecting in third hwixxaurq68/10/2025Insulin controlled gestational diabetes mellitus (GDM) in third hkeymjvzh97/26/2025Estimated Date of DeliveryCommentsYes 11/28/2025ased on last menstrual period of 02/21/2025 (Exact Date) Encounters DateTypeDepartmentCare UwxvMgtbrlsrquz71/25/2025Telephone Maternal- Medicine at [facility] [address] [place] [address] Cha Harris RN 10/20/2025Orders Only Maternal- Medicine at [facility] [address] [place] [address] Kayleigh Rizzo PA-C Essential hypertension affecting in third wciftchqf93/14/2025Orders Only Maternal- Medicine at [facility] [address] [place] [address] Zora Samuels RN Essential hypertension affecting in third trimester (Primary Dx); Insulin controlled gestational diabetes mellitus (GDM) in third trimester 10/08/2025Orders Only Maternal Medicine [place] [address] [facility] [address] [place] [address] Danae Ramirez, DIALLO Insulin controlled gestational diabetes mellitus (GDM) in third trimester (Primary Dx); Essential hypertension affecting in third trimester; Encounter for follow-up ultrasound of anatomy; History of pre-eclampsia in prior , currently ; Hx of delivery, currently , second /11/2025 2:30 PM ESTTelemedicine Maternal- Medicine at [facility] [address] [place] [address] Kayleigh Rizzo PA-C Insulin controlled gestational diabetes mellitus (GDM) in third trimester (Primary Dx); Essential hypertension affecting in third jygcjqirp28/11/2025Travel 10/05/2025Telephone Maternal- Medicine at [facility] [address] [facility] [place] [address] Anjana Davalos, DIALLO 10/04/20257903Pudbxg29/03/2025Telephone Maternal- Medicine at [facility] [address] [facility] [place] [address] Cha Harris, DIALLO 09/28/2025Orders Only Maternal- Medicine at [facility] [address] [facility] [place] [address] Kayleigh Rizzo, PA-C Essential hypertension affecting in third qcccwqvvi90/27/2025Telephone Maternal- Medicine at [facility] [address] [facility] [place] [address] Verito Gudino LD 09/21/2025Remote Patient Monitoring Maternal- Medicine at [facility] [address] [facility] [place] [address] Kayleigh Rizzo, PA-C Insulin controlled gestational diabetes mellitus (GDM) in third trimester (Primary Dx); Essential hypertension affecting in third zksfyyufw59/23/2025Orders Only Maternal- Medicine at [facility] [address] [facility] [place] [address] Camila Arciniega, MAT PUNCHER-CNM Essential hypertension affecting in third obtatoebt09/22/2025Telephone Maternal- Medicine at [facility] [address] [facility] [place] [address] Cha Harris, RN 09/15/2025Orders Only Maternal- Medicine at [facility] [address] [facility] [place] [address] Kayleigh Rizzo, PA-C Essential hypertension affecting in third bhmilgsil32/16/2025 11:00 AM EDTTelemedicine Maternal Medicine [place] [address] [address] Madhuri Monroy MD 28 weeks gestation of (Primary Dx); Insulin controlled gestational diabetes mellitus (GDM) in second trimester; Essential hypertension affecting in third /16/2025Orders Only Maternal- Medicine at [facility] [address] [place] [address] Zora Samuels RN Essential hypertension affecting in third trimester (Primary Dx); Insulin controlled gestational diabetes mellitus (GDM) in second trimester; Encounter for follow-up ultrasound of hghvxic5809/10/20258294Btpkei61/10/2025 3:00 PM EDTOffice Visit Maternal- Medicine at [facility] [address] [place] [address] Jean Carlos Pina MD Diet controlled gestational diabetes mellitus (GDM) in second trimester (Primary Dx); Essential hypertension affecting in third haijffaxc01/08/2025Travel 09/01/2025Telephone Maternal- Medicine at [facility] [address] [place] [address] Cha Harris RN 08/24/2025 1:30 PM EDTSupport Visit Maternal- Medicine at [facility] [address] [place] [address] Teena Sarmiento RN Kerline Steiner RD Gestational diabetes mellitus (GDM) in second trimester, gestational diabetes method of control imgeyrerldx53/28/6392Lcdqwx39/27/0397Tfndup12/26/2025bstract Maternal- Medicine at [facility] [address] [place] [address] External, Scanning Provider 08/19/2025Orders Only Maternal- Medicine at [facility] [address] [place] [address] Ref Prov, Not In System 08/18/2025bstract Maternal- Medicine at [facility] [address] [place] [address] Madhuri Monroy MD 08/18/2025Orders Only Maternal- Medicine at [facility] [address] [place] [address] Khalida Garrett RN History of pre-eclampsia in [...] or more drinks on one occasion?Never5ChildcareAnswer Date CtenvgmeJvdrsigfiAdjddxe74/13/2019EmploymentAnswerDate RecordedEmployment Tlaihgu6605/08/2019Hunger ScreeningAnswerDate RecordedWithin the past 12 months we worried whether our food would run out before we got money to buy more.Never True09/10/2025Within the past 12 months the food we bought just didn't last and we didn't have money to get more.Never True09/10/2025Purpose - LifeAnswerDate RecordedPurpose and direction in ohvfKayggjh17/11/2021Estimated Date of OyyolacqNlmnnxjcGbg92/03/2026Based on last menstrual period of 02/21/2025 (Exact Date)Sex and Gender InformationValueDate RecordedSex Assigned at BirthNot on fileLegal YzmJmiyts19/07/2019 2:55 PM ESTGender IdentityNot on fileSexual OrientationNot on file Last Filed Vital Signs Vital SignReadingTime TakenCommentsBlood Rkjivbko645/801 10:34 AM EDT Advfw05170/10/2025 2:48 PM EDTTemperature--Respiratory Uzds630512/10/2018 11:10 AM ESTOxygen Xvejfhjcts82%12/10/2018 11:10 AM ESTInhaled Oxygen Concentration-- Trhyip14.6 kg (160 lb)09/10/2025 10:34 AM GFMNqiedn468.5 cm (5' 2.01 )09/04/2025 2:48 PM EDTBody Mass Index29.261 2:48 PM EDT Plan of Treatment DateTypeDepartmentCare Team (Latest Contact Info)Kzxmvlzompt17/03/2025 11:00 AM ESTAppointment Maternal Medicine [address] GAO [address] [place] [phone] 11/03/2025 2:30 PM ESTOffice Visit Maternal- Medicine at [facility] [address] [place] [address] Kayleigh Rizzo, FORREST [address] [address] Health MaintenanceDue DateLast DoneCommentsDepression Rlztifkop08/08/2007dult BMI Follow Up Plan2013DTaP,Tdap and Td Vaccines (7 - Td or Tdap)2024 2014, 05/03/2000, 12/29/1997, Additional history existsInfluenza Vaccine RSV ( or age 60+ yrs) (1 - Risk 1-dose series)10/03/2025dult BMI Tllvsjhmc23Tobacco Screening Pap Smear Medical Devices Not on file Procedures Procedure NamePriorityDate/TimeAssociated DiagnosisCommentsUS MFM OB FOLLOW-UP, 1 LGBKHHekeknn03/13/2025 8:55 AM EST Essential hypertension affecting in third trimester Insulin controlled gestational diabetes mellitus (GDM) in second trimester Encounter for follow-up ultrasound of anatomy US MFM COMPREHENSIVE ANATOMIC UIAPVBCkykndl51/16/2025 10:56 AM EDT History of pre-eclampsia in prior , currently GLUCOSE TOLERANCE, 3 ZCACCVuziaym68/20/2025 GLUCOSE TOLERANCE, VLCNXCECrcbqjr16/20/2025 GLUCOSE TOLERANCE, 1 FQBKAhwirix55/20/2025 SECOND HOUR GLUCOSE TOLERANCE 100 GM SDWHXwnfjod80/20/2025 ULTRASOUND RQVXCQPsqumtt31/17/2025 3:39 PM EDTGLU 1H POST 50G LOADRoutine [...] REYNAGA : 1995 SEX: F Accession Number: [id number] ORDERING PHYSICIAN: MADHURI MONROY REFERRING PHYSICIAN: JONY MEJÍA Coding Procedures ? 12516: Ultrasound, uterus, real time with image documentation, follow up,transabdominal ? approach per fetus Indication Screening for follow-up survey, Gestational diabetes, Chronic hypertension affecting , History of prior with pre-eclampsia , History of prior with delivery , Previous surgery to cervix -(D&C). History OB History ? 2. Para 1 ? M1E9Q6F5 Current Cell free DNA ?Low Risk analysis [...] (oz) ? 11 oz EFW by: ?Hadlock (VNS-AY-SB-FL) Extended Tibia ??52.5 mm 31w 1d 20% Gerda Machine Packer ? 2.7 mm Head / Face / Neck Cephalic index 0.82 ? 75% Nicolaides Nasal bone: ?documented previously Extremities / Bony Struc FL / BPD ? 0.66 FL / HC ?0.19 FL / AC ?0.20 Other Structures FHR ?141 bpm Anatomy The following structures appear normal: Head/Neck: Cranium. Lateral ventricles. Cavum septi pellucidi. Parenchyma. Heart/Thorax: 4-chamber view. 3-vessel view. 1-gnenrx-ilmxjcn view. Bicaval view. Cardiac rhythm. ? Diaphragm. [...] MVP measures 5.1 cm. Recommendations Please see [facility] recommendations from prior clinical and/or ultrasound report documentation. The patient is scheduled in four to six week(s) to complete anatomic survey. Subsequent follow up or other follow up as clinically determined by primary OB provider unless otherwise specified by [facility]. Results forwarded to ordering provider so they can follow up with the patient as necessary. Procedure Note Jean Carlos Pina MD - 10/08/2025 NAME: JAYY REYNAGA : 1995 SEX: F Accession Number: [id number] ORDERING PHYSICIAN: MADHURI MONROY REFERRING PHYSICIAN: JONY MEJÍA Coding Procedures 77822: Ultrasound, uterus, real time with image documentation, follow up, transabdominal approach per fetus Indication Screening for follow-up survey, Gestational diabetes, Chronic hypertension affecting , History of prior with pre-eclampsia , History of prior with delivery ,Previous surgery to cervix -(D&C). History OB History 2. Para 1 H9J0F5H8 Current Cell free DNA Low Risk analysis [...] EFW (oz) 11 oz EFW by: Hadlock (CMK-KN-DV-FL) Extended Tibia 52.5 mm 31w 1d 20% Gerda Machine Packer 2.7 mm Head / Face / Neck Cephalic index 0.82 75% Nicolaides Nasal bone: documented previously Extremities / Bony Struc FL / BPD 0.66 FL / HC 0.19 FL / AC 0.20 Other Structures FHR 141 bpm Anatomy The following structures appear normal: Head/Neck: Cranium. Lateral ventricles. Cavum septi pellucidi.Parenchyma. Heart/Thorax: 4-chamber view. 3-vessel view. 0-lyqxot-tjfojid view.Bicaval view. Cardiac rhythm. Diaphragm. Abdomen: Stomach. [...] MethodAnalysis TimePerformed AtPathologist SignatureGlucose Tolerance Test 2 Wdee999AMNANSGY TRANSCRIBED RESULTSSpecimen (Source)Anatomical Location / LateralityCollection Method / VolumeCollection TimeReceived TimeBloodVenous blood / Unknown Narrative Authorizing ProviderResult TypeResult StatusNot In System Ref ProvLAB BLOOD ORDERABLESFinal ResultPerforming OrganizationAddressCity/State/ZIP CodePhone Number MANUALLY TRANSCRIBED RESULTS * Glucose tolerance, 1 hour (08/15/2025)ComponentValueRef RangeTest Method Analysis TimePerformed AtPathologist SignatureGlucose Tolerance Test 1 Ryli643 MANUALLY TRANSCRIBED RESULTSSpecimen (Source)Anatomical Location / Laterality Collection Method / VolumeCollection TimeReceived TimeBloodVenous blood / Unknown Narrative Authorizing ProviderResult TypeResult StatusNot In System Ref WinProbeLAB BLOOD ORDERABLESFinal ResultPerforming OrganizationAddressCity/State/ZIP CodePhone Number MANUALLY TRANSCRIBED RESULTS * Glucose tolerance, 3 hours (08/15/2025)ComponentValueRef RangeTest Method Analysis TimePerformed AtPathologist SignatureGlucose Tolerance Test 3 Rwvr702 MANUALLY TRANSCRIBED RESULTSSpecimen (Source)Anatomical Location / Laterality Collection Method / VolumeCollection TimeReceived TimeBloodVenous blood / Unknown Narrative Authorizing ProviderResult TypeResult StatusNot In System Ref ProvLAB BLOOD ORDERABLESFinal ResultPerforming OrganizationAddressCity/State/ZIP CodePhone Number MANUALLY TRANSCRIBED RESULTS * Glucose, tolerance fasting (08/15/2025)ComponentValueRef RangeTest Method Analysis TimePerformed AtPathologist SignatureGlucose Tolerance Test Gpxqinb68 MANUALLY TRANSCRIBED RESULTSSpecimen (Source)Anatomical Location / Laterality [...] TimePerformed AtPathologist SignatureGlucose, 1 hr PP 50GM ynci231 MANUALLY TRANSCRIBED RESULTSSpecimen (Source)Anatomical Location / Laterality Collection Method / VolumeCollection TimeReceived TimeBloodVenous blood / Unknown Narrative Authorizing ProviderResult TypeResult StatusNot In System Ref ProvLAB BLOOD ORDERABLESFinal ResultPerforming OrganizationAddressCity/State/ZIP CodePhone Number MANUALLY TRANSCRIBED RESULTS from Last 3 Months Insurance Care Teams Team MemberRelationshipSpecialtyStart DateEnd Date Cruz Rodríguez MD [address] [place] [address] PCP - GeneralFamily Medicine12/02/18
--- OUTSIDE RECORDS SUMMARY | 2025-10-24 10:10 | XMS_ITS | Encounter Summary ---
Author Organization [facility] Address [address] [place] [address] Care Team Providers Care Engineering Specialist Name Role Phone NirajEliceo kauffman Primary Care Provider [phone] CharlottecarolEliceo Bryant DAY Unavailable [phone] Encounter Details DateTypeDepartmentCare Team (Latest Contact Info)Dqakzsjdbsq29/16/2025Clinisync Result Encounter [facility] Department Unsolicited Jony Pop DO [address] [facility] [address] [place] [address] Social History Tobacco UseTypesPacks/DayYears UsedDateSmoking Tobacco: NeverSmokeless Tobacco: NeverAlcohol UseStandard Drinks/WeekCommentsNever0 (1 standard drink = 0.6 oz pure alcohol)caffeine: 1-2 cups per day, coffee and bagV7748 Health Literacy AnswerDate RecordedHow often do you [...] week12/29/2024How often do you attend temple or presybeterian services?Patient umjidqdm97/03/2025Do you belong to any clubs or organizations such as temple groups, unions, [employer] or athletic leodan ups, or school groups?No12/29/2024How often do you attend meetings of the clubs or organizations you belong to?Patient xxcfuzys06/03/2025re you , , , , never , [...] at all12/29/2024PHQ-2AnswerDate RecordedPatient Health Questionnaire-2 Score0 07/30/2025[facility] [place] [facility] Occupational Health - Occupational Stress QuestionnaireAnswerDate RecordedDo you feel stress - tense, restless, nervous, or anxious, or unable to sleep at night because yourmind is troubled all the time - these days?Only a wvcfpp6412/29/2024Exercise Vital SignAnswerDate Recorded On average, how many [...] steady place to sleep or slept in [facility] (including now)?No09/19/2023Housing Stability Vital SignAnswerDate [...] the highest degree you have received?High school ikakxptp15/29/2023 Estimated Date of FdomvtbwXodcgeooCba11/03/2026ased on last menstrual period of 02/21/2025Sex and Gender InformationValueDate RecordedSex Assigned at BirthNot on fileLegal FxjFtlump49/15/2023 7:18 PM EDTGender IdentityNot on file Sexual OrientationNot on 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 Not on fileNot on fileNot on filedocumented as of this encounter Plan of Treatment DateTypeDepartmentCare Team (Latest Contact Info)Bweozxtsdls28/04/2025 9:00 AM ESTRoutine [facility] [place] [facility] [address] [place] [address] Jony Pop, DO [address] [place], [facility]11 documented as of this encounter Procedures Procedure NamePriorityDate/TimeAssociated DiagnosisCommentsUS OB BPP W NON-RWZRAT5410/11/2025 1:46 PM EST documented in this encounter Results * US OB BPP W NON-STRESS (10/11/2025 1:46 PM EST)Anatomical Region LateralityModalityOtherSpecimen (Source)Anatomical Location / Laterality Collection Method / VolumeCollection TimeReceived Time10/11/2025 1:46 PM EST Narrative 10/11/2025 1:48 PM EST [facility] ?[address] ? [place] [address] ? Ultrasound Report ? Signed ? Patient: DRISS GAMA ?MR#: [id number] ?? : 1995 ?Acct:[id number] ?? Age/Sex: 30 / F ?ADM Date: 10/10/25 ?? Loc: [facility] ? Attending Dr: Jony Pop D.O. ? Ordering Physician: Jony Pop D.O. ?? Date of Service: 10/10/25 ?? Procedure(s): US OB BPP w non-stress ?? Accession Number(s): [id number] ? cc: Jony Pop D.O.; Yomaira BELTRAN ? [facility] ? [address] ? [place] [address] ? Patient Name: ?? DRISS Daniel GAMA ? MRN: [id number] ? date: 1995 ?Sex: F ?? Assigned Patient Location: [facility] ?? Current Patient Location: [facility] ?? Accession/Order Number: [id number] ?? Exam Date: 10/10/2025 ??10:49 ?Report Date: 10/11/2025 ??13:46 ? At the request of: ?? JOYN ??KIESHA ??DO ? Procedure: ??US OB BPP [...] Dictation Location: RADIO-PC-20 ? Electronically authenticated by: [id number] ??Y ?? Date: 10/11/2025 ??13:46 ? Dictated By: ?Jp Morillo D.O. ? Signed By: ?10/11/25 1348 ? DD/ 1346 ? TD/TT: ? Construction Equipment Overhauler: Procedure Note Radiology, Radiologist, - 10/11/2025 [place] [address] Ultrasound Report Signed Patient: DRISS GAMA MMR#: [id number] : 1995Acct:[id number] Age/Sex: 30 / FADM Date: 10/10/25 Loc: [facility] [place] Dr: Jony Pop D.O. Ordering Physician: Jony Pop D.O. Date of Service: 10/10/25 Procedure(s): US OB BPP w non-stress Accession Number(s): [id number] cc: Jony Pop D.O.; Yomaira BELTRAN [facility] [place] [id number] Patient Name: DRISS GAMA MRN: [id number] date: 1995 Sex: F Assigned Patient Location: [facility] Current [place] [facility] [place] Accession/Order Number: [id number] Exam Date: 10/10/2025 10:49 Report Date: 10/11/2025 [...] Morillo M.D. 10/11/2025 1:46 PM Dictation Location[facility] Electronically authenticated by: [id number] Y Date: 3:46 Dictated By: Jp Morillo D.O. Signed By:10/11/25 1348 DD/ 1346 TD/TT: Construction Equipment Overhauler: Authorizing ProviderResult TypeResult StatusCorey Kiesha DOCLINISYNC IMAGINGFinal Result documented in this encounter Visit Diagnoses Not on filedocumented in this encounter Care Teams Team MemberRelationshipSpecialtyStart DateEnd Date Eliceo Beltran DO [address] [place] [address] PCP - GeneralFamily Medicine02/14/24 Eliceo Beltran DO [address] [place] [address] PCP - Medical [place] [employer]07/27/2412documented as of this encounter
--- OUTSIDE RECORDS SUMMARY | 2025-10-24 10:10 | XMS_ITS | Encounter Summary ---
Author Organization [facility] Address [address] [place] [address] Care Team Providers Care Patrol Lady Name Role Phone NirajEliceo kauffman Primary Care Provider [phone] CharlottecarolEliceo Bryant DAY Unavailable [phone] Encounter Details DateTypeDepartmentCare Team (Latest Contact Info)Lnmzgppxady61/17/2025Clinisync Result Encounter [facility] External Department Unsolicited Nathan Pop DO [address] [facility] [place] [address] Social History Tobacco UseTypesPacks/DayYears UsedDateSmoking Tobacco: NeverSmokeless Tobacco: NeverAlcohol UseStandard Drinks/WeekCommentsNever0 (1 standard drink = 0.6 oz pure alcohol)caffeine: 1-2 cups per day, coffee and [id number] Health Literacy AnswerDate RecordedHow often do you [...] relatives?Once a week12/29/2024How often do you attend presybeterian or religion services?Patient ftpbabwk79/03/2025Do you belong to any clubs or organizations such as presybeterian groups, unions, [employer]spot[employer] or athletic leodan ups, or school groups?No12/29/2024How often do you attend meetings of the clubs or organizations you belong to?Patient kczjodim19/03/2025re you , , , , never , [...] RecordedPatient Health Questionnaire-2 Score0 07/30/2025[facility] [place] of Occupational Health - Occupational Stress QuestionnaireAnswerDate RecordedDo you feel stress - tense, restless, nervous, or anxious, or unable to sleep at night because yourmind is troubled all the time - these days?Only a ytgxig8112/29/2024Exercise Vital SignAnswerDate Recorded On average, how many [...] the highest degree you have received?High school xlejnwdr63/29/2023 Estimated Date of MnjyimsoWsvmiyhtBgy00/03/2026ased on last menstrual period of 02/21/2025Sex and Gender InformationValueDate RecordedSex Assigned at BirthNot on fileLegal QodEkqbsl30/15/2023 7:18 PM EDTGender IdentityNot on file Sexual OrientationNot on 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 Not on fileNot on fileNot on filedocumented as of this encounter Plan of Treatment DateTypeDepartmentCare Team (Latest Contact Info)Iadilqrxdhh17/04/2025 9:00 AM ESTRoutine [facility] [place] [facility] [address] [facility] [address] [address] Nathan Pop, [address] [facility] [place] [address] documented as of this encounter Procedures Procedure NamePriorityDate/TimeAssociated DiagnosisCommentsTBH CREATININERoutine 10/12/2025 8:28 PM EST SRMCOH PROTHROMBIN TIME INR W/O RKOXDrckswz89/17/2025 8:28 PM EST CCF RIWWmkelna95/17/2025 8:28 PM EST CCF VPWVIbjpfrm10/17/2025 8:28 PM EST CCF ECIPrbjqij66/17/2025 8:28 PM EST ALL URIC PFGJTkejwdp54/17/2025 8:28 PM EST ALL IPPWdmblfi35/17/2025 8:28 PM EST ALL CBC WITH AUTO NZATImvsdad36/17/2025 8:28 PM EST ALL VNGVimujbl47/17/2025 8:28 PM EST TBH URINE T PROTEIN CREAT QNZOEDgjrier41/17/2025 7:05 PM EST TBH UA (CLEAN/CATCH) GLASS FURNACE OPERATOR/MICRO IF IND.Kpcoeym1110/12/2025 7:05 PM EST documented in this encounter Results * CCF APTT (10/12/2025 8:28 PM EST)ComponentValueRef RangeTest MethodAnalysis TimePerformed AtPathologist SignaturePARTIAL THROMBOPLASTIN TIME24.522.3 - 36.2 secTBHSpecimen (Source)Anatomical Location / LateralityCollection Method / VolumeCollection TimeReceived Time10/12/2025 8:28 PM EST10/12/2025 8:39 PM EST Narrative CLINISYNC - 10/12/2025 8:59 PM EST Authorizing ProviderResult TypeResult StatusCorey Kiesha DOCLINISYNCFinal Result Performing OrganizationAddressCity/State/ZIP CodePhone Number [facility] * SRMCOH PROTHROMBIN TIME INR [...] [facility] * ALL LDH (10/12/2025 8:28 PM EST)ComponentValueRef RangeTest MethodAnalysis TimePerformed AtPathologist SignatureLACTATE [id number] - 234 U/LTBH Specimen (Source)Anatomical Location / LateralityCollection Method / Volume Collection TimeReceived Time10/12/2025 8:28 PM EST10/12/2025 8:39 PM EST Narrative CLINISYNC - 10/12/2025 8:59 PM EST Authorizing ProviderResult TypeResult StatusCorey Kiesha DOCLINISYNCFinal Result Performing OrganizationAddressty/State/ZIP CodePhone Number [facility] * CCF ALT (10/12/2025 8:28 PM EST)ComponentValueRef RangeTest MethodAnalysis TimePerformed AtPathologist SignatureALANINE [id number] - 59 U/LTBH Specimen (Source)Anatomical Location / LateralityCollection Method / Volume Collection TimeReceived Time10/12/2025 8:28 PM EST10/12/2025 8:39 PM EST Narrative CLINISYNC - 10/12/2025 8:59 PM EST Authorizing ProviderResult TypeResult StatusCorey Kiesha DOCLINISYNCFinal Result Performing OrganizationAddressCity/State/ZIP CodePhone Number [facility] * CCF AST (10/12/2025 8:28 PM EST)ComponentValueRef RangeTest MethodAnalysis TimePerformed AtPathologist SignatureASPARTATE AMINO [id number] - 37 U/L TBHSpecimen (Source)Anatomical Location / [...] ProviderResult TypeResult StatusCorey Kiesha DOCLINISYNCFinal Result Performing OrganizationAddThe [facility] Hospitalty/State/ZIP CodePhone Number CLINISYNC TB * TBH CREATININE (10/12/2025 8:28 PM EST)ComponentValueRef RangeTest Method Analysis TimePerformed AtPathologist SignatureCREATININE0.740.55 - 1.02 mg/dL TBHTBH EGFR-AF FILIPINO>60>=60 mL/min/1.73m 2TBHTBH EGFR-NON AF FILIPINO>60 >=60 mL/min/1.73m 2TBHSpecimen (Source)Anatomical Location / Laterality Collection Method / VolumeCollection TimeReceived Time10/12/2025 8:28 PM EST 10/12/2025 8:39 PM EST Narrative CLINISYNC - 10/12/2025 8:59 PM EST Authorizing ProviderResult TypeResult StatusCorey Kiesha DOCLINISYNCFinal Result Performing OrganizationAddressCity/State/ZIP CodePhone Number [facility] * ALL BUN (10/12/2025 8:28 PM EST)ComponentValueRef RangeTest MethodAnalysis TimePerformed AtPathologist SignatureBLOOD UREA LBTVOKOE21.07.0 - 18.0 mg/dL TBHSpecimen (Source)Anatomical Location / LateralityCollection Method / Volume Collection TimeReceived Time10/12/2025 8:28 PM EST10/12/2025 8:39 PM EST Narrative CLINISYNC - 10/12/2025 8:59 PM EST Authorizing ProviderResult TypeResult StatusCorey Kiesha DOCLINISYNCFinal Result Performing OrganizationAddressCity/State/ZIP CodePhone Number [facility] * (ABNORMAL) ALL CBC WITH AUTO DIFF (10/12/2025 8:28 PM EST)ComponentValueRef RangeTest MethodAnalysis TimePerformed AtPathologist SignatureTBH WBC12.1(H) 4.0 - 11.0 10 3/uLTBHTBH RBC3.84(L)4.20 - 5.40 10 6/uLTBHTBH HGB11.7(L)12.0 - 16.0 g/dLTBHTBH HCT34.5(L)36.0 - 48.0 %TBHTBH MCV89.881.0 - 99.0 fLTBHTBH MCH 30.526.7 - 34.0 pgTBHTBH MCHC33.929.9 - 35.2 g/dLTBHTBH RDW13.211.0 - 15.0 % TBHTBH [id number] - 450 10 3/uLTBHTBH MPV9.69.5 - 13.5 [...] Kiesha DOCLINISYNCFinal Result Performing OrganizationAddressCity/State/ZIP CodePhone Number [facility] * (ABNORMAL) TBH URINE T PROTEIN CREAT RATIO (10/12/2025 7:05 PM EST)Component ValueRef RangeTest MethodAnalysis TimePerformed AtPathologist SignatureTOTAL PROTEIN URINE TMLEAU05.5(H)<=11.9 mg/dLTBHCREATININE URINE LNBEIL18.2120.00 - 300.00 mg/dLTBHPROTEIN CREATININE RATIO URINE0.16TBHSpecimen (Source) Anatomical Location / LateralityCollection Method / VolumeCollection Time Received Time10/12/2025 7:05 PM EST10/12/2025 10:30 PM EST Narrative CLINISYNC - 10/12/2025 10:40 PM EST Authorizing ProviderResult TypeResult StatusCorey Kiesha DOCLINISYNCFinal Result Performing OrganizationAddressty/State/ZIP CodePhone Number [facility] * TBH UA (CLEAN/CATCH) GLASS FURNACE OPERATOR/MICRO IF IND. (10/12/2025 7:05 PM EST)ComponentValue [...] Kiesha DOCLINISYNCFinal Result Performing OrganizationAddressCity/State/ZIP CodePhone Number [facility] documented in this encounter Visit Diagnoses Not on filedocumented in this encounter Care Teams Team MemberRelationshipSpecialtyStart DateEnd Date Eliceo Beltran DO [address] [place] [address] [facility]/14/24 Eliceo Beltran DO [address] [place] [address] PCP - Medical [place] [employer]07/27/2412documented as of this encounter
--- OUTSIDE RECORDS SUMMARY | 2025-10-24 10:10 | XMS_ITS | Encounter Summary ---
Author Organization [facility] tem Address [id number] [address] [place] [address] Care Team Providers Care Meat Trimmer Name Role Phone Cruz Rodríguez MD Primary Care Provider [phone] Encounter Details DateTypeDepartmentCare Team (Latest Contact Info)Wrjchlidjjg94/25/2025Orders Only Maternal- Medicine at [facility] [address] [place] [phone] Kayleigh Rizzo, PAAlbinC [address] [address] Essential hypertension affecting in third trimester Social [...] or more drinks on one occasion?Never5ChildcareAnswer Date BeseqnclElfszuwgqPulbntp52/13/2019EmploymentAnswerDate RecordedEmployment Qotojpn6005/08/2019Hunger ScreeningAnswerDate RecordedWithin the past 12 months we worried whether our food would run out before we got money to buy more.Never True09/10/2025Within the past 12 months the food we bought just didn't last and we didn't have money to get more.Never True09/10/2025Purpose - LifeAnswerDate RecordedPurpose and direction in qmrtDrhfxqq24/11/2021Estimated Date of HenrsbasWejjzcpkIfm90/03/2026Based on last menstrual period of 02/21/2025 (Exact Date)Sex and Gender InformationValueDate RecordedSex Assigned at BirthNot on fileLegal SgjBtpsim75/07/2019 2:55 PM ESTGender IdentityNot on fileSexual OrientationNot on filedocumented as of this encounter Plan of Treatment DateTypeDepartmentCare Team (Latest Contact Info)Oxwfvvkrknt37/03/2025 11:00 AM ESTAppointment Maternal Medicine [address] [place] [phone] 11/03/2025 2:30 PM ESTOffice Visit Maternal- Medicine at [facility] [address] [place] [address] Kayleigh Rizzo, PAAlbinC [address] [address] documented as of this encounter Visit Diagnoses Diagnosis Essential hypertension affecting in third trimester documented in this encounter Care Teams Team MemberRelationshipSpecialtyStart DateEnd Date Cruz Rodríguez MD [address] [place] [address] PCP - GeneralFamily Medicine12/02/18documented as of this encounter
--- OUTSIDE RECORDS SUMMARY | 2025-10-24 10:10 | XMS_ITS | Encounter Summary ---
Author Organization [facility] Address [address] [place] [address] Care Team Providers Care Tilt Tray Driver Name Role Phone RubyEliceo Bryant DAY Primary Care Provider [phone] Ruby Eliceo Hurtado DO Unavailable [phone] Encounter Details DateTypeDepartmentCare Team (Latest Contact Info)Cmemqsvtvba25/18/2025Travel Social History Tobacco UseTypesPacks/DayYears UsedDateSmoking Tobacco: NeverSmokeless Tobacco: NeverAlcohol UseStandard Drinks/WeekCommentsNever0 (1 standard drink = 0.6 oz pure alcohol)caffeine: 1-2 cups per day, coffee and [id number] Health Literacy AnswerDate RecordedHow often do you [...] relatives?Once a week12/29/2024How often do you attend anabaptist or christian services?Patient sbnikrxb17/03/2025Do you belong to any clubs or organizations such as anabaptist groups, unions, fraternal or athletic leodan ups, or school groups?No12/29/2024How often do you attend meetings of the clubs or organizations you belong to?Patient ptarkxha06/03/2025re you , , , , never , [...] RecordedPatient Health Questionnaire-2 Score0 07/30/2025[facility] [place] of Occupational Health - Occupational Stress QuestionnaireAnswerDate RecordedDo you feel stress - tense, restless, nervous, or anxious, or unable to sleep at night because yourmind is troubled all the time - these days?Only a dbmvjw1612/29/2024Exercise Vital SignAnswerDate Recorded On average, how many [...] steady place to sleep or slept in [facility] (including now)?No09/19/2023Housing Stability Vital SignAnswerDate [...] the highest degree you have received?High school hnjudunv10/29/2023 Estimated Date of XszjuqmzYplvczoxCow26/03/2026ased on last menstrual period of 02/21/2025Sex and Gender InformationValueDate RecordedSex Assigned at BirthNot on fileLegal QpqTidoou48/15/2023 7:18 PM EDTGender IdentityNot on file Sexual OrientationNot on 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 Not on fileNot on fileNot on filedocumented as of this encounter Plan of Treatment DateTypeDepartmentCare Team (Latest Contact Info)Wbzwsmhhqyv13/04/2025 9:00 AM ESTRoutine [facility] [place] [facility] [address] [place] [address] Nathan Pop, DO [address] [place] [address] [place] [address] documented as of this encounter Visit Diagnoses Not on filedocumented in this encounter Care Teams Team MemberRelationshipSpecialtyStart DateEnd Date Eliceo Beltran DO [address] [place] [address] PCP - GeneralFamily Medicine02/14/24 Eliceo Beltran DO [address] [place] [address] PCP - Medical [place] [employer]07/27/2412documented as of this encounter
--- OUTSIDE RECORDS SUMMARY | 2025-10-24 10:10 | XMS_ITS | Encounter Summary ---
Author Organization [facility] tem Address [id number] [address] [place] [address] Care Team Providers Care Biomedical Equipment Technician Name Role Phone Cruz Rodríguez MD Primary Care Provider [phone] Encounter Details DateTypeDepartmentCare Team (Latest Contact Info)Nhevyqicuzc30/25/2025Telephone Maternal- Medicine at [facility] [address] [facility] [place] [phone] Cha Harris, DIALLO Social History Tobacco UseTypesPacks/DayYears [...] or more drinks on one occasion?Never5ChildcareAnswer Date NkiqhsjpFlkdgvmhrJjpdxob74/13/2019EmploymentAnswerDate RecordedEmployment Gwjjsin3505/08/2019Hunger ScreeningAnswerDate RecordedWithin the past 12 months we worried whether our food would run out before we got money to buy more.Never True09/10/2025Within the past 12 months the food we bought just didn't last and we didn't have money to get more.Never True09/10/2025Purpose - LifeAnswerDate RecordedPurpose and direction in avbgWdqbzjk74/11/2021Estimated Date of GbxaukizMpfgbwmfXto20/03/2026Based on last menstrual period of 02/21/2025 (Exact Date)Sex and Gender InformationValueDate RecordedSex Assigned at BirthNot on fileLegal JulQihdek32/07/2019 2:55 PM ESTGender IdentityNot on fileSexual OrientationNot [...] Plan of Treatment DateTypeDepartmentCare Team (Latest Contact Info)Wkkdhuxojfr88/03/2025 11:00 AM ESTAppointment Maternal Medicine [place] [address] [place] [address] 11/03/2025 2:30 PM ESTOffice Visit Maternal- Medicine at [facility] [address] [place] [address] Kayleigh Rizzo PA-C [address] [address] documented as of this encounter Visit Diagnoses Diagnosis Insulin controlled gestational diabetes mellitus (GDM) in second trimester documented in this encounter Care Teams Team MemberRelationshipSpecialtyStart DateEnd Date Cruz Rodríguez MD [address] [place] [address] PCP - GeneralFamily Medicine12/02/18documented as of this encounter
[2025-10-24 10:25] VITALS: BP 118/70; PULSE 96
== END 2025-10-24 10:48 | disposition home or self-care (01) ==
LOC: US 10:06 → FBC 10:21
PROVIDERS: Family Provider Family Medicine; PCP Family Medicine; Visit Provider Nurse Practitioner Family
DX: O24.419 Gestational diabetes mellitus in pregnancy, unspecified control (principal)
CPT/HCPCS: 76818

== ENCOUNTER 2025-10-28 15:05 | Outpatient (OUT) | payer OTHER, SELFPAY ==
--- OUTSIDE RECORDS SUMMARY | 2025-10-14 15:30 | XMS_ITS | Encounter Summary ---
Author Organization [facility] Address [address] [place] [address] Care Team Providers Care Deckhand Sponge Boat Name Role Phone CharlotteEliceo medina Primary Care Provider [phone] Charlottecarol Eliceo Hurtado DO Unavailable [phone] Encounter Details DateTypeDepartmentCare Team (Latest Contact Info)Lubpozhpwpz25/19/2025 3:30 PM ESTRoutine [facility] [address] [place] [address] Nathan Pop DO [address] [facility] Armstrong, [facility]11 33 weeks gestation of ([facility]); Third trimester ([facility]) Social History Tobacco UseTypesPacks/DayYears UsedDateSmoking Tobacco: NeverSmokeless Tobacco: NeverAlcohol UseStandard Drinks/WeekCommentsNever0 (1 standard drink = 0.6 oz pure alcohol)caffeine: 1-2 cups per day, coffee and bmrH1406 Health Literacy AnswerDate RecordedHow often do you [...] week12/29/2024How often do you attend congregational or yazdanism services?Patient nimwbajd46/03/2025Do you belong to any clubs or organizations such as congregational groups, unions, fraRNA Networks or athletic leodan ups, or school groups?No12/29/2024How [...] Health Questionnaire-2 Score0 07/30/2025[facility] [place] of Occupational Health - Occupational Stress QuestionnaireAnswerDate RecordedDo you feel stress - tense, restless, nervous, or anxious, or unable to sleep at night because yourmind is troubled all the time - these days?Only a pkinlm4312/29/2024Exercise Vital SignAnswerDate Recorded On average, how many [...] place to sleep or slept in [facility] (including now)?No09/19/2023Housing Stability Vital SignAnswerDate RecordedIn [...] the highest degree you have received?High school nrhbmath89/29/2023 Estimated Date of RgavqurzXapsfvudLku36/03/2026ased on last menstrual period of 02/21/2025Sex and Gender InformationValueDate RecordedSex Assigned at BirthNot on fileLegal JhjWhxyou41/15/2023 7:18 PM EDTGender IdentityNot on file Sexual OrientationNot on 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 female who presents for No chief complaint on file. Patient presents today for Return OB appointment. Current Medications: has a current medication list which includes the following prescription(s): alcohol prep pad, d-care glucometer, insulin glargine-yfgn, labetalol, metoprolol succinate xl, and vitamins. Medical History: Active Ambulatory Problems [...] 02/19/2024 Obesity (BMI 30-39.9) 02/19/2024 Diarrhea 03/24/2025 33 weeks gestation of ([facility]) 10/14/2025 Third trimester ([facility]) 10/14/2025 Resolved Ambulatory Problems Diagnosis Date Noted No Resolved Ambulatory Problems Past Medical History: Diagnosis Date Amenorrhea d/t oral contraceptive pills John San infection GDM (gestational diabetes mellitus) ([facility]) Headache History of menstrual cramps ([facility]) Varicella zoster Visual impairment Family History[1] Social History Tobacco Use Smoking status: Never Smokeless tobacco: Never Substance Use Topics Alcohol use: Never Comment: caffeine: 1-2 cups per day, coffee and pop Drug use: Never Surgical History[2] Allergies[3] Review of Systems: Review of Systems Constitutional: [...] nursing note reviewed. Exam conducted with a saw grinder present. Vitals: Estimated body mass index is 30.75 kg/m?? as calculated from the following: Height as of 07/30/25: 5' 2 . Weight as of this encounter: 168 lb 1.9 oz. BP: 122/84 Patient's last menstrual period was 02/21/2025. Assessment/Plan Encounter Diagnosis: ICD-10-CM 1. 33 weeks gestation of ([facility]) Z3A.33 POCT urinalysis dipstick manually resulted 2. Third trimester ([facility]) Z34.93 POCT urinalysis dipstick manually resulted Return OB: Patient presents today for a routine obstetrics appointment. Patient is currently 34w4d . Patient states she is doing well [...] week for routine OB appointment. Documented by Nathan Pop DO on behalf of: Nathan Pop DO [1] Family History Problem Relation Name Age of Onset Hypertension Mother dayanna Colon cancer Father Anemia Father Breast cancer Maternal Grandmother Hypertension Maternal Grandfather sach[place] Cancer Maternal Grandfather [place]achin Colon cancer Paternal Grandfather [2] Past Surgical History: Procedure Laterality Date APPENDECTOMY 05/2016 at [facility] DIL[facility] CURETTAGE 12/2022 retained placenta DISTAL CLAVICLE EXCISION Right 07/2018 Shoulder - open - DAP LAPAROSCOPY DIAGNOSTIC / BIOPSY / ASPIRATION / LYSIS 02/2019 endometriosis, 2020 LAPAROSCOPY DIAGNOSTIC / BIOPSY / ASPIRATION / LYSIS 02/29/2024 SHOULDER SURGERY Right open distal clavicle excision-DAP VAGINAL DELIVERY 11/2022 [3] No Known Allergies documented in this encounter Plan of Treatment DateTypeDepartmentCare Team (Latest Contact Info)Ndgengclmtz98/04/2025 9:00 AM ESTRoutine [facility] [address] [place] [address] Nathan Pop DO [address] [facility] [address] [place] [address] documented as of this encounter Procedures Procedure NamePriorityDate/TimeAssociated DiagnosisCommentsPOCT URINALYSIS LOUBTMQIZebxhyu23/19/2025 3:40 PM EST 33 weeks gestation of ([facility]) Third trimester ([facility]) documented in this encounter Results * [...] / LateralityCollection Method / VolumeCollection Time Received RrbaPcxrf25/19/2025 3:40 PM EST Narrative Authorizing ProviderResult TypeResult StatusCorey Kiesha DOPOINT OF CARE TEST ENTER/EDIT ORDERABLESFinal Result documented in this encounter Visit Diagnoses Diagnosis 33 weeks gestation of ([facility]) Third trimester ([facility]) state, incidental documented in this encounter Care Teams Team MemberRelationshipSpecialtyStart DateEnd Date Eliceo Beltran DO [address] [place] [address] PCP - GeneralFamily Medicine02/14/24 Eliceo Beltran DO [address] [place] [address] PCP - Medical [employer] [employer]07/27/24[address]documented as of this encounter
--- OUTSIDE RECORDS SUMMARY | 2025-10-28 15:08 | XMS_ITS | Encounter Summary ---
Author Organization [facility] Address [address] [place] [address] Care Team Providers Care Office Communication Professor Name Role Phone Eliceo Beltran Primary Care Provider [phone] CharlottegeovaniEliceo kauffman Unavailable [phone] Encounter Details DateTypeDepartmentCare Team (Latest Contact Info)Uhslslpuqay21/22/2025Clinisync Result Encounter [facility] External Department Unsolicited Steph Keane, DEVYN [address] [facility] [place] [address] Social History Tobacco UseTypesPacks/DayYears UsedDateSmoking Tobacco: NeverSmokeless Tobacco: NeverAlcohol UseStandard Drinks/WeekCommentsNever0 (1 standard drink = 0.6 oz pure alcohol)caffeine: 1-2 cups per day, coffee and byhA7528 Health Literacy AnswerDate RecordedHow often do you [...] week12/29/2024How often do you attend moravian or episcopalian services?Patient isjraajp2025Do you belong to any clubs or organizations such as moravian groups, unions, [employer] or athletic leodan ups, or school groups?No12/29/2024How often do you attend meetings of the clubs or organizations you belong to?Patient lykncmtk44/03/2025re you , , , , never , [...] RecordedPatient Health Questionnaire-2 Score0 07/30/2025[facility] [place] of Occupational Health - Occupational Stress QuestionnaireAnswerDate RecordedDo you feel stress - tense, restless, nervous, or anxious, or unable to sleep at night because yourmind is troubled all the time - these days?Only a dzbugo0812/29/2024Exercise Vital SignAnswerDate Recorded On average, how many [...] steady place to sleep or slept in [facility] (including now)?No09/19/2023Housing Stability Vital SignAnswerDate RecordedIn [...] the highest degree you have received?High school vfcqodns03/29/2023 Estimated Date of NuxftinrLhkjmscpIon80/03/2026ased on last menstrual period of 02/21/2025Sex and Gender InformationValueDate RecordedSex Assigned at BirthNot on fileLegal DdmXiutye73/15/2023 7:18 PM EDTGender IdentityNot on file Sexual OrientationNot on 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 Not on fileNot on fileNot on filedocumented as of this encounter Plan of Treatment DateTypeDepartmentCare Team (Latest Contact Info)Leynrkrcgxj79/04/2025 9:00 AM ESTRoutine [facility] [place] [facility] [address] [place] [phone] Nathan Pop, DO [address] [facility] [place] [address] documented as of this encounter Procedures Procedure NamePriorityDate/TimeAssociated DiagnosisCommentsUS OB BPP W NON-JDFIYX0910/17/2025 9:22 AM EST documented in this encounter Results * US OB BPP W NON-STRESS (10/17/2025 9:22 AM EST)Anatomical Region LateralityModalityOtherSpecimen (Source)Anatomical Location / Laterality Collection Method / VolumeCollection TimeReceived Time10/17/2025 9:22 AM EST Narrative 10/17/2025 9:25 AM EST [facility] ?[address] ? [place] [address] ? Ultrasound Report ? Signed ? Patient: DRISS GAMA ?MR#: [id number] ?? : 1995 ?Acct:[id number] ?? Age/Sex: 30 / F ?ADM Date: 10/17/25 ?? Loc: US ? Attending Dr: Steph Keane ? Ordering Physician: Steph Keane ?? Date of Service: 10/17/25 ?? Procedure(s): US OB BPP w non-stress ?? Accession Number(s): [id number] ? cc: Steph Keane; Yomaira BELTRAN ? [facility] ? [address] ? [place] [address] ? Patient Name: ?? DRISS Daniel GAMA ? MRN: [id number] ? date: 1995 ?Sex: F ?? Assigned Patient Location: [facility]BC ?? Current Patient Location: ? Accession/Order Number: [id number] ?? Exam Date: 10/17/2025 ??08:11 ?Report Date: 10/17/2025 ??09:22 ? At the request of: ?? STEPH ??LAKHWINDER ? Procedure: ??US OB BPP w non-stress ? Biophysical profile. ? Reason for exam: Gestational diabetes ? COMPARISON: 10/10/2025 ? TECHNIQUE: Transabdominal imaging of the gravid uterus was obtained. ? FINDINGS: The eddy current inspector reports a BPP of 8 out of [...] Dictation Location: RADIO-PC-18 ? Electronically authenticated by: [id number] ??Y ?? Date: 10/17/2025 ??09:22 ? Dictated By: ?Junito Mcgrath M.D. ? Signed By: ?10/17/25924 ? DD/ 1 ? TD/TT: ? Motor Vehicle Clerk: Procedure Note Radiology, Radiologist, - 10/17/2025 [place] [address] Ultrasound Report Signed Patient: DRISS GAMA MMR#: [id number] : 1995Acct:[id number] Age/Sex: 30 / FADM Date: 10/17/25 Loc: US Attending Dr: Steph Keane Ordering Physician: Steph Keane Date of Service: 10/17/25 Procedure(s): US OB BPP w non-stress Accession Number(s): [id number] cc: Steph Keane; Yomaira BELTRAN [address] [address] Patient Name: DRISS GAMA MRN: [id number] date: 1995 Sex: F Assigned Patient Location: [facility] Current Patient Location: Accession/Order Number: [id number] Exam Date: 10/17/2025 08:11 Report Date: 10/17/2025 09:22 At the request of: STEPH KEANE Procedure: US OB BPP w non-stress Biophysical profile. Reason for exam: Gestational diabetes COMPARISON: 10/10/2025 TECHNIQUE: Transabdominal imaging of the gravid uterus was obtained. FINDINGS: The eddy current inspector reports a BPP of 8 out of 8. LEONEL is normal at13.2 cm. heart rate 144 bpm. Nuchal cord is present. US/US OB BPP w non-stress IMPRESSION: BPP 8 out of 8. Nuchal cord is present. This was reported to the nurse by the soil technologist. Impression dictated by: Junito Mcgrath Jr., D.O. 10/17/2025 9:22 AM Dictation Location: [employer] Electronically authenticated by: [id number] Y Date: 9:22 Dictated By: Junito Mcgrath M.D. Signed By:10/17/25924 DD/ 1 TD/TT: Motor Vehicle Clerk: Authorizing ProviderResult TypeResult StatusKrsouth coastal health campus emergency departmenta Lakhwinder NPCLINISYNC IMAGING Final Result documented in this encounter Visit Diagnoses Not on filedocumented in this encounter Care Teams Team MemberRelationshipSpecialtyStart DateEnd Date Eliceo Beltran DO [address] [place] [address] PCP - GeneralFami Medicine02/14/24 Eliceo Beltran DO [address] [place] [address] PCP - Medical [place] [employer]07/27/2412documented as of this encounter
--- OUTSIDE RECORDS SUMMARY | 2025-10-28 15:08 | XMS_ITS | Clinical Summary ---
Author Organization [facility] Address [address] [place] [address] Care Team Providers Care Clinical Services Specialist Name Role Phone Eliceo Beltran DO Primary Care Provider [phone] Eliceo Beltran DO Unavailable [phone] Allergies No known active allergies Medications MedicationSigDispense QuantityRefillsLast FilledStart DateEnd DateStatus metoprolol succinate XL (Toprol-XL) 25 MG 24 hr tablet Indications:Hypertension, unspecified typeTake 1 tablet by mouth daily 90 tablet 5Active Vit-Fe Fumarate-FA ( Vitamins) 28-0.8 MG tablet Indications:, unspecified gestational age ([facility]),Encounter for supervision of normal first in first trimester ([facility])Take 1 tablet by mouth Daily 30 tablet 110/6Active Alcohol Swabs (Alcohol Prep Pad) 70 % pads Indications:Gestational diabetes mellitus (GDM), antepartum, gestational diabetes method of control unspecified([facility]),Elevated glucose tolerance test Apply 1 Pad topically Daily Use four times daily to check FSBS. 150 each 5Active Blood Glucose Monitoring Suppl (D-Care Glucometer) w/Device kit Indications:Gestational diabetes mellitus (GDM), antepartum, gestational diabetes method of control unspecified([facility]),Elevated glucose tolerance test1 kit Daily Use four times daily to check FSBS. In the morning prior to breakfast & 1 hour after each meal for a total of 4times daily. 1 kit 506Active insulin glargine-yfgn (Semglee-yfgn) 100 UNIT/ML pen Inject 13 Units under the skin at gietrjd1009/15/2025tive labetalol (Normodyne) 200 MG tablet Indications:Gestational HypertensionTake 1 tablet (200 mg) by mouth in the morning and 1 tablet (200 mg) in the evening and 1 tablet (200 mg) before bedtime. 90 tablet 5Active labetalol (Normodyne) 200 MG tablet Indications:Gestational HypertensionTake 1 tablet (200 mg) by mouth in the morning and 1 tablet (200 mg) before bedtime. 60 tablet Discontinued(Reorder) Active Problems ProblemNoted DateDiagnosed Date33 weeks gestation of ([facility]) 10/14/2025Third trimester ([facility])10/14/20259998Zhkwdqzn78/29/2025 Kgygcuopbee94/26/2024Obesity (BMI 30-39.9)02/19/2024cquired equinus deformity of foot03/29/2023isplacement of cervical intervertebral disc without myelopathy 03/29/20236816Axfcahfqigtc72/04/7114Bfrzvniswywir76/04/9058Ujohatdokcetg63/04/2023 Gvsqfmipckyz88/04/2023 Assessment & Plan (07/30/2025 4:00 PM EDT): Record Blood Pressures 2-4 times weekly and record. Return with readings at next appointment. Call with readings if sees significant changes Intractable migraine without aura and with status ovoksehkbhe56/04/2023Migraines 03/29/2023hronic pelvic pain in mqovhh5603/29/2023ain in female genitalia on gscbsfzvsma82/04/2023ain on mmfdfquulb32/04/2023anic lpizepjf97/04/2023 Patellofemoral disorders, left knee03/29/2023atellofemoral disorders, right knee03/29/2023osterior calcaneal gprmvebix49/04/2023Scapular dyskinesis 03/29/20237710Syprgpgvj23/04/2023Seasonal allergic rhinitis due to jdhecc0003/29/2023 Tachycardia, orilqhxyqp67/04/2023Tension zahnxexf21/04/2023Vitamin B12 vjtaonpljg80/04/2023Vitamin D eydtuhpcvw62/04/2023hronic right shoulder pain 03/29/2023Estimated Date of HfycswalGntnpvfaWrr36/03/2026ased on last menstrual period of 02/21/2025 Encounters DateTypeDepartmentCare CiksWgxqojfcwha21/01/2025Telephone [facility] [address] [place] [phone] Rossy Davila MA 10/25/20259001Stmrdy13/29/2025linisync Result Encounter NOMS External Department Unsolicited Steph Keane NP 10/17/2025linisync Result Encounter NOMS External Department Unsolicited Steph Keane NP 10/16/2025External Result Encounter NOMS External Department Unsolicited Nathan Pop, DO 10/16/2025linisync Result Encounter NOMS External Department Unsolicited Nathan Pop, DO 10/14/2025 3:30 PM ESTRoutine [facility] [address] [place] [phone] Nathan Pop, DO 33 weeks gestation of ([facility]); Third trimester ([facility])10/14/2025amboo flowsheet [facility] [address] [place] [phone] Nathan Pop, DO 10/13/20256279Vglhth43/17/2025linisync Result Encounter NOMS External Department Unsolicited Nathan Pop, DO 10/11/2025linisync Result Encounter NOMS External Department Unsolicited Nathan Pop, DO 10/09/2025bstract NOMShalonda MOODY [address] [place] [phone] Nathan Pop, DO 10/03/2025linisync Result Encounter NOMS External Department Unsolicited Steph Keane NP 10/01/2025Telephone [facility] [place] [facility] [address] [place] [phone] Nathan Pop, 09/30/2025 3:00 PM ESTRoutine [facility] [place] [facility] [address] [place] [address] Nathan Pop, DO Third trimester ([facility]); 31 weeks gestation of ([facility]); Pre-eclampsia in third trimester ([facility])09/30/2025amboo flowsheet [facility] [place] [facility] [address] [place] [address] Nathan Pop, DO 09/26/2025linisync Result Encounter NOMS External Department Unsolicited Steph Keane, PHOTOGRAPHIC PROCESS WORKER 09/23/20256881Sksuwo40/25/2025linisync Result Encounter NOMS External Department Unsolicited Steph Keane, PHOTOGRAPHIC PROCESS WORKER 09/16/2025 3:20 PM EDTRoutine [facility] [place] [facility] [address] [place] [address] Nathan Pop, DO 29 weeks gestation of ([facility]); Third trimester ([facility]); Hypertension affecting , antepartum ([facility]); Gestational diabetes mellitus (GDM), antepartum, gestational diabetes method of control unspecified([facility])09/16/2025amboo flowsheet [facility] [address] [place] [phone] Nathan Pop, DO 09/11/2025bstract [facility] [place] [facility] [address] [place] [address] Nathan Pop, DO 09/09/20256026Cqyzan27/09/2025 3:50 PM EDTRoutine [facility] [address] [place] [address] Steph Keane NP Hypertension affecting , antepartum ([facility]) (Primary Dx); 27 weeks gestation of ([facility]); Second trimester ([facility])09/03/2025linisync Result Encounter NOMS External Department Unsolicited Nathan Pop DO 09/03/2025amboo flowsheet [facility] [address] [place] [address] Steph Keane NP 09/02/20250700Gwruso33/04/2025linisync Result Encounter NOMS External Department Unsolicited Steph Keane NP 08/28/2025bstract [facility] [address] [place] [address] Eliceo Beltran DO 08/28/2025Telephone [facility] [address] [facility] [place] [address] Radha Rahman MA 08/27/2025 3:20 PM EDTRoutine [facility] [address] [facility] [place] [address] Steph Keane NP 26 weeks gestation of ([facility]); Second trimester ([facility]); induced hypertension, antepartum ([facility]); Gestational diabetes mellitus (GDM) in second trimester, gestational diabetes method of control unspecified ([facility])08/27/2025linisync Result Encounter NOMS External Department Unsolicited Steph Keane NP 08/27/2025linisync Result Encounter NOMS External Department Unsolicited Steph Keane NP 08/27/2025amboo flowsheet [facility] [address] [facility] [place] [address] Steph Keane NP 08/25/2025linisync Result Encounter NOMS External Department Unsolicited Provider, Generic External Data 08/20/2025bstract [facility] [address] [place] [address] Nathan Pop, DO 08/20/2025Telephone [facility] [address] [place] [address] Steph Keane, PHOTOGRAPHIC PROCESS WORKER 08/17/2025bstract [facility] [address] [place] [phone] Eliceo Beltran, DO 08/17/2025bstract [facility] [address] [place] [phone] Eliceo Beltran, DO 08/17/2025Telephone [facility] [place] [facility] [address] [place] [address] Nathan Pop, DO 08/13/2025bstract [facility] [address] [place] [address] Nathan Pop, DO 08/12/2025 2:40 PM EDTRoutine [facility] [address] [place] [address] Nathan Pop, DO 24 weeks gestation of ([facility]); Second trimester ([facility]); Elevated glucose tolerance test08/12/2025 2:00 PM EDTAncillary Procedure [facility] [address] [place] [address] Encounter for follow-up ultrasound of anatomy ([facility])08/12/2025bstract [facility] [place] [facility] [address] [place] [address] Nathan Pop, DO 08/12/2025bstract [facility] [address] [place] [address] [place] [address] Dmitri Popy, DO 08/12/2025[facility] [address] [place] [phone] Bill Guold LPN Lwikyej9908/12/2025bstract [facility] [address] [place] [phone] Eliceo Beltran, DO 08/04/2025bstract [facility] [address] [place] [address] [place] [address] Kiesha Nathan, DO 08/04/2025[facility]phone [facility] [address] [place] [address] Bill Gould LPN Vbbedks2607/30/2025 3:40 PM EDTOffice Visit [facility] [address] [place] [phone] Eliceo Beltran, DO Wellness examination (Primary Dx); Hypertension, unspecified type ; Lipid weadjcfik60/04/2025amboo flowsheet [facility] [address] [place] [phone] Eliceo Beltran, DO 07/30/2025Travelfrom Last 3 Months Immunizations ImmunizationAdministration DatesNext DueDTP / HiB08/01/1996,1995, 1995DTaP, Gljacwkafqu44/08/2000,12/29/1997HPV, Awrovsyjstvd99/17/2014, 05/04/2014,2014Hep A, Adult09/11/2014,2014Hep B, Adolescent or Hkhjlllvf28/06/1996,1995,1995IPV05/03/2000Influenza, seasonal, injectable, preservative free09/11/2014MMR05/03/2000,08/01/1996Meningococcal LZL2W6104/03/2007OPV08/01/1996,1995,1995Tdap2014 Family History Medical HistoryRelationNameCommentsAnemiaFatherColon cancerFatherCancerMaternal GrandfatherbutchHypertensionMaternal GrandfatherbutchBreast cancerMaternal GrandmotherHypertensionMotherdarleneColon cancerPaternal GrandfatherRelationName StatusCommentsFatherDeceasedMaternal GrandfatherbutchMaternal GrandmotherMother darleneAlivePaternal GrandfatherPaternal GrandmotherAlive Social History Tobacco UseTypesPacks/DayYears UsedDateSmoking Tobacco: NeverSmokeless Tobacco: Never Tobacco Cessation:Counseling Given: Not Answered Alcohol UseStandard Drinks/WeekCommentsNever0 (1 standard drink = 0.6 oz pure alcohol)caffeine: 1-2 cups per day, coffee and mojS4676 Health LiteracyAnswer Date RecordedHow often do you [...] relatives?Once a week12/29/2024How often do you attend sabianist or adventist services?Patient ngsxqwdu50/03/2025Do you belong to any clubs or organizations such as sabianist groups, unions, fraternal or athletic leodan ups, or school groups?No02/03/2025How often do you attend meetings of the clubs or organizations you belong to?Patient zriniwel93/03/2025re you , , , , never , [...] hard at all12/29/2024PHQ-2AnswerDate RecordedPatient Health Questionnaire-2 Score0 07/30/2025[facility] [place] [facility] - Occupational Stress QuestionnaireAnswerDate RecordedDo you feel stress - tense, restless, nervous, or anxious, or unable to sleep at night because yourmind is troubled all the time - these days?Only a ovagfd6812/29/2024Exercise Vital SignAnswerDate Recorded On average, how many [...] steady place to sleep or slept in vestalelter (including now)?No09/19/2023Housing Stability Vital SignAnswerDate RecordedIn the [...] the highest degree you have received?High school sufjlfgx14/29/2023 Estimated Date of JqwkzzhnSsjzvlrpNts34/03/2026ased on last menstrual period of 02/21/2025Sex and Gender InformationValueDate RecordedSex Assigned at BirthNot on fileLegal QgcHkfszc25/15/2023 7:18 PM EDTGender IdentityNot on file Sexual OrientationNot on 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 Not on fileNot on fileNot on file Last Filed Vital Signs Vital SignReadingTime TakenCommentsBlood Egpnmvil935/8411 3:29 PM EST Pyzii710907/30/2025 3:36 PM ISMAkhewumtddq95.2 ??C (97.1 ??F)07/30/2025 3:36 PM EDTRespiratory Slza561912/23/2022 4:16 PM ESTOxygen Erteqwwilr27%07/30/2025 3:36 PM EDTInhaled Oxygen Concentration--Xaqkkx10.3 kg (168 lb 1.9 oz)10/14/2025 3:29 PM IBWVgppsb567.5 cm (5' 2 )07/30/2025 3:36 PM EDTBody Mass Index30.7509 3:36 PM EDT Plan of Treatment DateTypeDepartmentCare Team (Latest Contact Info)Tzcxabucyqt51/04/2025 9:00 AM ESTRoutine [facility] [address] [place] [address] KieshaNathan jarrell, DO [address] [address] Health MaintenanceDue DateLast DoneCommentsCOVID-19 Vaccine ( - season) 2025Influenza Vaccine (#1)Pap Smear08/18/2027 08/18/2024, 08/15/2023, 06/20/2022, Additional history existsCervical Cancer Zjsbzeuzo03/09/2028HPV/Kvaomw81/neumococcal Vaccine: Pediatrics (0 to 5 Years) and At-Risk Patients (6 to 64 Years)Aged OutNo longer eligible based on patient's age to complete this topic Procedures Procedure NamePriorityDate/TimeAssociated DiagnosisCommentsUS OB BPP W NON-LKWVAZ7710/24/2025 10:38 AM EST US OB BPP W NON-XPRUSE9810/17/2025 9:22 AM EST URINE CULTURE - NKNUZvihvay38/21/2025 1:30 PM EST [facility] UA (CLEAN/CATCH) SKILLED LABORER/MICRO IF IND.Dzilcbh1710/16/2025 1:30 PM EST CULTURE, URINE, LXNNNUFSHFM11/21/2025 1:30 PM EST POCT URINALYSIS ZFIJSVHNWaomctv54/19/2025 3:40 PM EST 33 weeks gestation of ([facility]) Third trimester ([facility]) CCF QVCKJptvumi26/17/2025 8:28 PM EST SRMCOH PROTHROMBIN TIME INR W/O ZXTKXxtctgm11/17/2025 8:28 PM EST ALL DZOVldjlis60/17/2025 8:28 PM EST CCF WYBCbiitkw83/17/2025 8:28 PM EST CCF FVSNmxvczr81/17/2025 8:28 PM EST ALL URIC GEPGNdamnjp34/17/2025 8:28 PM EST TBH ASROZAHUCMCxcahkj32/17/2025 8:28 PM EST ALL WPRXerqyeb92/17/2025 8:28 PM EST ALL CBC WITH AUTO CITBGxwybvj47/17/2025 8:28 PM EST TB[facility] URINE T PROTEIN CREAT BFUIBOqnzjyd03/17/2025 7:05 PM EST [facility] UA (CLEAN/CATCH) SKILLED LABORER/MICRO IF IND.Euzlnle1810/12/2025 7:05 PM EST US OB BPP W NON-ABQVVY8710/11/2025 1:46 PM EST US OB BPP W NON-EFEVKO3710/03/2025 11:36 AM EST POCT URINALYSIS PQJYIZSTWrjnydv67/05/2025 3:13 PM EST Third trimester ([facility]) US OB BPP W NON-TBNWVD7909/26/2025 2:50 PM EDT US OB BPP W NON-XFNKIG1609/19/2025 12:17 PM EDT POCT URINALYSIS KGEDUWRMBhxdfdu08/22/2025 4:09 PM EDT 29 weeks gestation of ([facility]) Third trimester ([facility]) ALL CBC WITH AUTO IDHAMsmlpun06/09/2025 5:15 PM EDT MHPT HCRXCKCMFKHdkynjb05/09/2025 5:15 PM EDT CCF ZODLIdfbweg10/09/2025 5:15 PM EDT SRMCOH PROTHROMBIN TIME INR W/O MTYXZfuzkro10/09/2025 5:15 PM EDT CCF FTORbzetms83/09/2025 5:15 PM EDT CCF CDLDrxkypf29/09/2025 5:15 PM EDT ALL URIC ZPMFQqzyvqk48/09/2025 5:15 PM EDT TBH UMHLNXIICNRiamlkw35/09/2025 5:15 PM EDT ALL CWCRsomvid19/09/2025 5:15 PM EDT TBH URINE T PROTEIN CREAT EORBBYtvrown93/09/2025 5:05 PM EDT POCT URINALYSIS DDHWFKVXXdqsgsb88/09/2025 4:26 PM EDT 27 weeks gestation of ([facility]) TBH TOTAL PROTEIN 24 HOUR LWHMFYubdhif12/04/2025 8:00 AM EDT US OB BPP W NON-MISDWR0608/27/2025 6:02 PM EDT TBH URINE T PROTEIN CREAT JACPBMaxauyx57/02/2025 5:50 PM EDT CCF XEOIojnlbe16/02/2025 5:00 PM EDT CCF IDTVOfpovzi94/02/2025 5:00 PM EDT SRMCO[facility] PROTHROMBIN TIME INR W/O IGNLMkakwng58/02/2025 5:00 PM EDT ALL OLMDonxntl58/02/2025 5:00 PM EDT CCF CUDDyzbuuf62/02/2025 5:00 PM EDT ALL URIC WSYPYlkyevu14/02/2025 5:00 PM EDT TBH NDLWZWHYZUJmnfyrl09/02/2025 5:00 PM EDT ALL MZGNfgnndh93/02/2025 5:00 PM EDT ALL CBC WITH AUTO UPVRXgasqjc28/02/2025 5:00 PM EDT POCT URINALYSIS RKLKGOLDHmbkuvt94/02/2025 3:53 PM EDT 26 weeks gestation of ([facility]) URINE CULTURE, NLQFHLXBqguvqo06/30/2025 8:10 AM EDT POCT URINALYSIS LVISLXRLVlqzine70/17/2025 2:39 PM EDT 24 weeks gestation of ([facility]) Second trimester ([facility]) US OB LIMITED 1+ WSIHQXICmpfobk99/17/2025 2:22 PM EDT Encounter for follow-up ultrasound of anatomy ([facility]) PAP IKFDXBcvtoaa23/23/2024 12:00 AM EDTTHINPREP PAP AND HPV MRNA E6/E7 W/RFL HPV 16,18/79Qqrduez36/09/2023 4:00 PM EDT Well woman exam with routine gynecological exam from Last 3 Months or Most Recently Relevant to Health Maintenance Results * US OB BPP W NON-STRESS (10/24/2025 10:38 AM EST) Only the most recent of7 resultswithin the time period is included. Anatomical RegionLateralityModalityOtherSpecimen (Source)Anatomical Location / LateralityCollection Method / VolumeCollection TimeReceived Time10/24/2025 10:38 AM EST Narrative 10/24/2025 10:40 AM EST [facility] ?[address] ? [place] [address] ? Ultrasound Report ? Signed ? Patient: MCCONEGLY,DRISS M ?MR#: [id number] ?? : 1995 ?Acct:[id number] ?? Age/Sex: 30 / F ?ADM Date: 10/24/25 ?? Loc: [facility] ??250-1 ? Attending Dr: Steph Keane ? Ordering Physician: Steph Keane ?? Date of Service: 10/24/25 ?? Procedure(s): US OB BPP w non-stress ?? Accession Number(s): [id number] ? cc: Steph Keane; Yomaira BELTRAN ? [facility] ? [address] ? [place] [address] ? Patient Name: ?? DRISS Sanchez JAYY ? MRN: [facility]:[id number] ? date: 1995 ?Sex: F ?? Assigned Patient Location: US ?? Current Patient Location: US ?? Accession/Order Number: [id number] ?? Exam Date: 10/24/2025 ??10:08 ?Report Date: 10/24/2025 ??10:38 ? At the request of: ?? STEPH ??ELSA ? Procedure: ??US OB BPP w non-stress ? US OB BPP w non-stress ??10/24/2025 10:24 AM ? SIGNS AND SYMPTOMS: ?? Gestational diabetes mellitus ? PROTOCOL: Transabdominal sonographic imaging of the gravid uterus ? COMPARISON: 10/10/2025 ? FINDINGS: ? Estimated gestational age: 35 weeks 0 days ? heart rate: 139 bpm. ? Amniotic fluid index: 14.02 cm. ??The deepest vertical pocket measures 4.3 cm. ? Incidental note is made of a nuchal cord. ? Biophysical profile: ? breathing movements: 2/2 ? Gross body movements: 2/2 ? tone: 2/2 ? Amniotic fluid volume: 2/2 ? US/US OB BPP w non-stress ?? IMPRESSION: ? Biophysical profile: 07/03 ? Incidental note is made of a nuchal cord. ? Impression dictated by: Will Faria M.D. ??10/24/2025 10:38 AM ? Dictation Location: [facility]-- ? Electronically authenticated by: [id number] ??Y ?? Date: 10/24/2025 ??10:38 ? Dictated By: ?Will Faria M.D. ? Signed By: ?10/24/250 ? DD/ 1038 ? TD/TT: ? Economic Research Assistant: Procedure Note Radiology, Radiologist, MD - 10/24/2025 [place] [address] Ultrasound Report Signed Patient: DRISS GAMA MMR#: [id number] : 1995Acct:[id number] Age/Sex: 30 / FADM Date: 10/24/25 Loc: [facility] 250-[address]: Steph Keane Ordering Physician: Steph Keane Date of Service: 10/24/25 Procedure(s): US OB BPP w non-stress Accession Number(s): [id number] cc: Steph Keane; Yomaira BELTRAN The [place] [id number] Patient Name: DRISS GAMA MRN: [facility]:[id number] date: 1995 Sex: F Assigned Patient Location: Current Patient Location: US Accession/Order Number: [id number] Exam Date: 10/24/2025 10:08 Report Date: 10/24/2025 10:38 At the request of: STEPH KEANE Procedure: US OB BPP w non-stress US OB BPP w non-stress 10/24/2025 10:24 AM SIGNS AND SYMPTOMS: Gestational diabetes mellitus PROTOCOL: Transabdominal sonographic imaging of the gravid uterus COMPARISON: 10/10/2025 FINDINGS: Estimated gestational age: 35 weeks 0 days heart rate: 139 bpm. Amniotic fluid index: 14.02 cm. The deepest vertical pocket measures 4.3cm. Incidental note is made of a nuchal cord. Biophysical profile: breathing movements: 2/2 Gross body movements: 2/2 tone: 2/2 Amniotic fluid volume: 2/2 US/US OB BPP w non-stress IMPRESSION: Biophysical profile: 07/03 Incidental note is made of a nuchal cord. Impression dictated by: Will Faria M.D. 10/24/2025 10:38 AM Dictation Location: Feedback Electronically authenticated by: [id number] Y Date: 0:38 Dictated By: Will Faria M.D. Signed By:10/24/25 1040 DD/ 1038 TD/TT: Economic Research Assistant: Authorizing ProviderResult TypeResult StatusSteph Keane NPCLINISYNC IMAGING [...] CLINISYNC [facility] * (ABNORMAL) [facility] UA (CLEAN/CATCH) SKILLED LABORER/MICRO IF IND. (10/16/2025 1:30 PM EST) Only [...] Kiesha DOCLINISYNCFinal Result Performing OrganizationAddressty/State/ZIP CodePhone Number [facility] * Urine culture (10/16/2025 1:30 PM EST)ComponentValueRef RangeTest Method Analysis TimePerformed AtPathologist SignatureFRMC NOTE?20,000 colonies/ml mixed ?bacterial skin contaminants ?2 Days 10/18/2025 10:[address] [facility] [facility] CtrSpecimen (Source)Anatomical Location / LateralityCollection Method / VolumeCollection TimeReceived Time Clean-Voided Midstream (Clean Void Midstream)10/16/2025 1:30 PM EST10/16/2025 4:19 PM EST Narrative [facility] - 10/18/2025 10:10 AM EST Diagnosis: HIGH BLOOD PRESSURE Comment: Authorizing ProviderResult TypeResult StatusCorey Kiesha DOLAB MICROBIOLOGY - GENERAL ORDERABLESFinal ResultPerforming OrganizationAddLe[facility] [address]/State/ZIP Code Phone Number [facility] [address] [place] [address], [facility] [address] [place] [address] * (ABNORMAL) POCT urinalysis dipstick manually resulted [...] / Laterality Collection Method / VolumeCollection TimeReceived GmovMfhjm83/19/2025 3:40 PM EST Narrative Authorizing ProviderResult TypeResult StatusCorey Kiesha DOPOINT OF CARE TEST ENTER/EDIT ORDERABLESFinal Result * [facility] CREATININE (10/12/2025 8:28 PM EST) Only the most recent of3 resultswithin the time period is included. ComponentValueRef RangeTest MethodAnalysis TimePerformed AtPathologist Signature CREATININE0.740.55 - 1.02 mg/dLTBHTBH EGFR-AF GUAMANIAN>60>=60 mL/min/1.73m 2TBH TBH EGFR-NON AF GUAMANIAN>60>=60 mL/min/1.73m 2TBHSpecimen (Source)Anatomical Location / LateralityCollection Method [...] Kiesha DOCLINISYNCFinal Result Performing OrganizationAddressCity/State/ZIP CodePhone Number [facility] * [facility] AST (10/12/2025 8:28 PM EST) Only the most recent of3 resultswithin the time period is included. ComponentValueRef RangeTest MethodAnalysis TimePerformed AtPathologist Signature ASPARTATE AMINO [id number] - 37 U/LTBHSpecimen (Source)Anatomical Location / LateralityCollection Method / VolumeCollection TimeReceived Time10/12/2025 8:28 PM EST10/12/2025 8:39 PM EST Narrative [facility] - 10/12/2025 8:59 PM EST Authorizing ProviderResult TypeResult StatusCorey Kiesha DOCLINISYNCFinal Result Performing OrganizationAddressCity/State/ZIP CodePhone Number [facility] * [facility] APTT (10/12/2025 8:28 PM EST) [...] DOCLINISYNCFinal Result Performing OrganizationAddressCity/State/ZIP CodePhone Number [facility]NC [facility] * [facility] ALT (10/12/2025 8:28 PM EST) Only the most recent of3 resultswithin the time period is included. ComponentValueRef RangeTest MethodAnalysis TimePerformed AtPathologist Signature ALANINE [id number] - 59 U/LTBHSpecimen (Source)Anatomical Location / LateralityCollection Method / VolumeCollection TimeReceived Time10/12/2025 8:28 PM EST10/12/2025 8:39 PM EST Narrative [facility] - 10/12/2025 8:59 PM EST Authorizing ProviderResult TypeResult StatusCorey Kiesha DOCLINISYNCFinal Result Performing OrganizationAddressCity/State/ZIP CodePhone Number [facility] * [facility] [employer] [facility] (10/12/2025 8:28 PM [...] ComponentValueRef RangeTest MethodAnalysis TimePerformed AtPathologist Signature LACTATE POFRHMFILCYGM75360 - 234 U/LTBHSpecimen (Source)Anatomical Location / LateralityCollection [...] - 35.2 g/dLTBHTBH RDW13.211.0 - 15.0 %TBHTBH [id number] - 450 10 3/uLTBHTBH MPV9.69.5 - 13.5 [...] Performing OrganizationAddressCity/State/ZIP CodePhone Number [facility] * ALL BUN (10/12/2025 8:28 PM EST) Only the most recent of3 resultswithin the time period is included. ComponentValueRef RangeTest MethodAnalysis TimePerformed AtPathologist Signature BLOOD UREA IKBMFSXT96.07.0 - 18.0 mg/dLTBHSpecimen (Source)Anatomical Location / LateralityCollection Method / VolumeCollection TimeReceived Time10/12/2025 8:28 PM EST10/12/2025 8:39 PM EST Narrative CLINISYNC - 10/12/2025 8:59 PM EST Authorizing ProviderResult TypeResult StatusCorey Kiesha DOCLINISYNCFinal Result Performing OrganizationAddressCity/State/ZIP CodePhone Number [facility] * (ABNORMAL) [facility] URINE T PROTEIN CREAT RATIO (10/12/2025 7:05 PM EST) Only the most recent of3 resultswithin the time period is included. ComponentValueRef RangeTest MethodAnalysis TimePerformed AtPathologist Signature TOTAL PROTEIN URINE WRFWQF11.5(H)<=11.9 mg/dLTBHCREATININE URINE WHOQQU59.21 20.00 - 300.00 mg/dLTBHPROTEIN CREATININE RATIO URINE0.16TBHSpecimen (Source) Anatomical Location / LateralityCollection Method / VolumeCollection Time Received Time10/12/2025 7:05 PM EST10/12/2025 10:30 PM EST Narrative CLINISYNC - 10/12/2025 10:40 PM EST Authorizing ProviderResult TypeResult StatusCorey Kiesha DOCLINISYNCFinal Result Performing OrganizationAddressCity/State/ZIP CodePhone Number [facility]IC[facility]ANC [facility] * (ABNORMAL) MHPT FIBRINOGEN (09/03/2025 5:15 PM EDT)ComponentValueRef RangeTest MethodAnalysis TimePerformed AtPathologist MeccleoacYKWILCBQVT059(H)200 - 400 mg/dLTBHSpecimen (Source)Anatomical Location / LateralityCollection Method / VolumeCollection TimeReceived Time09/03/2025 5:15 PM EDT1 5:21 PM EDT Narrative CLINISYNC - 09/03/2025 5:45 PM EDT Authorizing ProviderResult TypeResult StatusCorey Kiesha DOCLINISYNCFinal Result Performing OrganizationAddressCity/State/ZIP CodePhone Number [facility] * ([facility]NORMAL) [facility] TOTAL PROTEIN 24 HOUR URINE (08/29/2025 8:00 AM EDT)Component ValueRef RangeTest MethodAnalysis TimePerformed AtPathologist SignatureTOTAL PROTEIN URINE KQLRQQ83.6(H)<=11.9 mg/dLTBHTOTAL VOLUME 24 HOUR GXPEX208mP/24hr TBHTBH TOTAL PROTEIN 24 HOUR OFCGI997.6<=149.1 mg/24hrTBHSpecimen (Source) Anatomical Location / LateralityCollection Method / VolumeCollection Time Received Time08/29/2025 8:00 AM EDT1 10:35 AM EDT Narrative CLINISYNC - 08/29/2025 12:08 PM EDT Authorizing ProviderResult TypeResult StatusGeneric External Data Provider CLINISYNCFinal ResultPerforming OrganizationAddressCity/State/ZIP CodePhone Number [facility] * URINE CULTURE, ROUTINE (08/25/2025 8:10 AM EDT)ComponentValueRef RangeTest MethodAnalysis TimePerformed AtPathologist SignatureURINE CULTURE, ROUTINE ??Urine Culture, Routine TBHURINE CULTURE, ROUTINEMixed urogenital floraTBHURINE CULTURE, MVSYVIM10,000- 50,000 colony forming units per mLTBHURINE CULTURE, ROUTINEPerformed at: - [facility]coNewton [facility] CenterTBHURINE CULTURE, [id number] [place], [place] [id number] URINE CULTURE, ROUTINELab Director: Cm Sandoval PhD, Phone: [phone] Specimen (Source)Anatomical Location / LateralityCollection Method / Volume Collection TimeReceived Time08/25/2025 8:10 AM EDT08/25/2025 8:30 AM EDT Narrative CLINISYNC - 08/26/2025 10:07 PM EDT Authorizing ProviderResult TypeResult StatusGeneric External Data ProviderLAB BLOOD ORDERABLESFinal ResultPerforming OrganizationAddressCity/State/ZIP Code Phone Number CLINIS[facility]NC [facility] * US OB limited 1+ fetuses [...] Alas MD Authorizing ProviderResult TypeResult StatusNathan Pop [facility] OB US PROCEDURES Final Result * Pap Smear (08/18/2024 12:00 AM EDT)Specimen (Source)Anatomical Location / LateralityCollection Method / VolumeCollection TimeReceived TimeSwabCervical swab / Unknown Narrative Authorizing ProviderResult TypeResult StatusFastephono Nurse [facility] ObLAB CYTOLOGY ORDERABLESFinal ResultPerforming OrganizationAddressCity/State/ZIP CodePhone Number EXTERNAL LAB * THINPREP PAP AND HPV MRNA E6/E7 W/RFL HPV 16,18/45 (09/03/2023 4:00 PM EDT) Narrative Authorizing ProviderResult TypeResult StatusAmy Santa MonicaPremier HealthAB BLOOD ORDERABLES Final ResultPerforming OrganizationAddressCity/State/ZIP CodePhone Number EXTERNAL LAB from Last 3 Months or Most Recently Relevant to Health Maintenance Insurance Care Teams Team MemberRelationshipSpecialtyStart DateEnd Date Eliceo Beltran DO [address] [place] [address] PCP - GeneralFamily Medicine02/14/24 Eliceo Beltran DO [address] [place] [address] PCP - Medical [employer]07/27/2412
--- OUTSIDE RECORDS SUMMARY | 2025-10-28 15:08 | XMS_ITS | Encounter Summary ---
Author Organization [facility] Address [address] [place] [address] Care Team Providers Care Professor Of Theology Name Role Phone NirajEliceo kauffman Primary Care Provider [phone] Charlottecarol Eliceo uHrtado DO Unavailable [phone] Encounter Details DateTypeDepartmentCare Team (Latest Contact Info)Tupnvymdkne67/21/2025External Result Encounter [facility] External Department Unsolicited Nathan Pop DO [address] [place] [address] Social History Tobacco UseTypesPacks/DayYears UsedDateSmoking Tobacco: NeverSmokeless Tobacco: NeverAlcohol UseStandard Drinks/WeekCommentsNever0 (1 standard drink = 0.6 oz pure alcohol)caffeine: 1-2 cups per day, coffee and isfU8065 Health Literacy AnswerDate RecordedHow often do you [...] relatives?Once a week12/29/2024How often do you attend pentecostalism or restoration services?Patient uymaxeku61/03/2025Do you belong to any clubs or organizations such as pentecostalism groups, unions, fraJigsaw Enterprises or athletic leodan ups, or school groups?No12/29/2024How [...] RecordedPatient Health Questionnaire-2 Score0 07/30/2025Fin[facility] [place] of Occupational Health - Occupational Stress QuestionnaireAnswerDate RecordedDo you feel stress - tense, restless, nervous, or anxious, or unable to sleep at night because yourmind is troubled all the time - these days?Only a hbamhs2112/29/2024Exercise Vital SignAnswerDate Recorded On average, how many [...] steady place to sleep or slept in [facility] (including now)?No09/19/2023Housing Stability Vital SignAnswerDate [...] the highest degree you have received?High school dgnqqikl94/29/2023 Estimated Date of BjxqmpsoLpblzmnnHya60/03/2026ased on last menstrual period of 02/21/2025Sex and Gender InformationValueDate RecordedSex Assigned at BirthNot on fileLegal SxbZfwbau60/15/2023 7:18 PM EDTGender IdentityNot on file Sexual OrientationNot on 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 Not on fileNot on fileNot on filedocumented as of this encounter Plan of Treatment DateTypeDepartmentCare Team (Latest Contact Info)Fyrzwjnjhtl60/04/2025 9:00 AM ESTRoutine [facility] [place] [facility] [address] [address] Nathan Pop DO [address] [place] [address] documented as of this encounter Procedures Procedure NamePriorityDate/TimeAssociated DiagnosisCommentsCULTURE, URINE, YOYRFZRBWVM02/21/2025 1:30 PM EST documented in this encounter Results * Urine culture (10/16/2025 1:30 PM EST)ComponentValueRef RangeTest Method Analysis TimePerformed AtPathologist SignatureFA[facility]FA[facility] NOTE?20,000 colonies/ml mixed ?bacterial skin contaminants ?2 Days 10/18/2025 10:10 AM [facility] CtrSpecimen (Source)Anatomical Location / LateralityCollection Method / VolumeCollection TimeReceived Time Clean-Voided Midstream (Clean Void Midstream)10/16/2025 1:30 PM EST10/16/2025 4:19 PM EST Narrative [facility] - 10/18/2025 10:10 AM EST Diagnosis: HIGH BLOOD PRESSURE Comment: Authorizing ProviderResult TypeResult StatusCorey Kiesha DOLAB MICROBIOLOGY - GENERAL ORDERABLESFinal ResultPerforming OrganizationAddressCity/State/ZIP Code Phone Number [facility] [address] [place] [address], [facility] [address] [facility] [place] [address] documented in this encounter Visit Diagnoses Not on filedocumented in this encounter Care Teams Team MemberRelationshipSpecialtyStart DateEnd Date Eliceo Beltran DO [address] [place] [address] PCP - GeneralFamily Medicine02/14/24 Eliceo Beltran DO [address] [place] [address] PCP - Medical [place] [employer]07/27/2412documented as of this encounter
--- OUTSIDE RECORDS SUMMARY | 2025-10-28 15:08 | XMS_ITS | Encounter Summary ---
Author Organization [facility] Address [address] [place] [address] Care Team Providers Care Media Professional Name Role Phone RubyEliceo Bryant DAY Primary Care Provider [phone] Ruby Eliceo Hurtado DO Unavailable [phone] Encounter Details DateTypeDepartmentCare Team (Latest Contact Info)Eokhoaivxbm79/30/2025Travel Social History Tobacco UseTypesPacks/DayYears UsedDateSmoking Tobacco: NeverSmokeless Tobacco: NeverAlcohol UseStandard Drinks/WeekCommentsNever0 (1 standard drink = 0.6 oz pure alcohol)caffeine: 1-2 cups per day, coffee and [id number] Health Literacy AnswerDate RecordedHow often do you [...] week12/29/2024How often do you attend buddhism or jehovah's witness services?Patient yloxnlih87/03/2025Do you belong to any clubs or organizations such as buddhism groups, unions, fraternal or athletic leodan ups, or school groups?No12/29/2024How often do you attend meetings of the clubs or organizations you belong to?Patient vxzrhujq89/03/2025re you , , , , never , [...] hard at all12/29/2024PHQ-2AnswerDate RecordedPatient Health Questionnaire-2 Score0 07/30/2025Finintermountain medical center [place] of Occupational Health - Occupational Stress QuestionnaireAnswerDate RecordedDo you feel stress - tense, restless, nervous, or anxious, or unable to sleep at night because yourmind is troubled all the time - these days?Only a wviwia5612/29/2024Exercise Vital SignAnswerDate Recorded On average, how many [...] to sleep or slept in [facility] (including now)?No09/19/2023Housing Stability Vital SignAnswerDate [...] the highest degree you have received?High school iezllsay27/29/2023 Estimated Date of DilzidzzRtocowbdOsb19/03/2026ased on last menstrual period of 02/21/2025Sex and Gender InformationValueDate RecordedSex Assigned at BirthNot on fileLegal NpvOcpiyw38/15/2023 7:18 PM EDTGender IdentityNot on file Sexual OrientationNot on 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 Not on fileNot on fileNot on filedocumented as of this encounter Plan of Treatment DateTypeDepartmentCare Team (Latest Contact Info)Hrqqqzmabiu88/04/2025 9:00 AM ESTRoutine [facility] [place] [facility] [address] [place] [address] Nathan Pop, DO [address] [place] [address] [place] [address] documented as of this encounter Visit Diagnoses Not on filedocumented in this encounter Care Teams Team MemberRelationshipSpecialtyStart DateEnd Date Eliceo Beltran DO [address] [place] [address] PCP - GeneralFamily Medicine02/14/24 Eliceo Beltran DO [address] [place] [address] PCP - Medical [place] [employer]07/27/2412documented as of this encounter
--- OUTSIDE RECORDS SUMMARY | 2025-10-28 15:08 | XMS_ITS | Patient Health Record ---
Author Organization [facility] Address [address] [place] [address] Care Team Providers Care Pulmonary Nurse Practitioner Name Role Phone Cruz Rodríguez Primary Care [...] Quad PFS (0.5mL Admin) 18 y/o & tkpgbEgvwrfg67/30/8228Rjlyhofy0353 Fluzone Quad PFS (0.5mL Admin) 6 months & uvffzEnyfztl99/17/4706Kjztvpsf9886 Fluzone, 6mo & older, Quad MDV (0.5mL Admin)Ffebaie6907/16/20239166Pqdvwogx7014 Fluzone, 6mo & older, Quad PFS (0.5mL Admin)Zqwrmbg08/18/2023Contraindications z2023 Fluzone, 6mo & older, Quad PFS (0.5mL Admin)Dkxlcmq02/20/2024Refused Social History Tobacco Use: Social History Observation [...] Status W/U Status Risk Notes Problem Tachycardia (6078870) Tachycardia (R00.0) ActiveconfirmedProblemObesity (347275385)Obesity (BMI 30-39.9) (E66.9)Active confirmed Plan Of Treatment No Information Insurance Providers Payer Name Payer Address Payer Phone Subscriber Number Group Number Insured Name Patient Relationship to Insured Coverage Start Date Coverage End Date [facility] [address] [place] [address] [id number] Driss Woodruff Self - patient is the insured Medical [place] [facility] [address] [place] [phone] [id number], AlexisSelf - patient is the insured Medical (General) History Medical History History ICD Code Tachycardia R00.0 Surgical History Surgery Date(Month/Year) right shoulder surgery endometriosisappendectomyHospitalization History Reason Date(Month/Year) surgeries childbirth
--- OUTSIDE RECORDS SUMMARY | 2025-10-28 15:08 | XMS_ITS | Encounter Summary ---
Author Organization [facility] Address [address] [place] [address] Care Team Providers Care Emergency Dispatch Operator Name Role Phone NirajEliceo kauffman Primary Care Provider [phone] RubylEiceo Brynat DAY Unavailable [phone] Encounter Details DateTypeDepartmentCare Team (Latest Contact Info)Mepgppfjsmc73/01/2025Telephone [facility] [place] [facility] [address] [place] [address] [place] [phone] Rossy Davila MA Social History Tobacco UseTypesPacks/DayYears UsedDateSmoking Tobacco: NeverSmokeless Tobacco: NeverAlcohol UseStandard Drinks/WeekCommentsNever0 (1 standard drink = 0.6 oz pure alcohol)caffeine: 1-2 cups per day, coffee and sbpH6015 Health Literacy AnswerDate RecordedHow often do you [...] relatives?Once a week12/29/2024How often do you attend druze or scientologist services?Patient /03/2025Do you belong to any clubs or organizations such as druze groups, unions, fraBioAmber or athletic leodan ups, or school groups?No12/29/2024How often do you attend meetings of the clubs or organizations you belong to?Patient vmivktkw82/03/2025re you , , , , never , [...] Health Questionnaire-2 Score0 07/30/2025Finmount[facility] point medical [facility] [place] of Occupational Health - Occupational Stress QuestionnaireAnswerDate RecordedDo you feel stress - tense, restless, nervous, or anxious, or unable to sleep at night because yourmind is troubled all the time - these days?Only a wkksrl0212/29/2024Exercise Vital SignAnswerDate Recorded On average, how many [...] place to sleep or slept in [facility] (including now)?No09/19/2023Housing Stability Vital SignAnswerDate RecordedIn [...] the highest degree you have received?High school lylcrmee74/29/2023 Estimated Date of GeopxoliJaykosfiLne54/03/2026ased on last menstrual period of 02/21/2025Sex and Gender InformationValueDate RecordedSex Assigned at BirthNot on fileLegal AxpTtgauo62/15/2023 7:18 PM EDTGender IdentityNot on file Sexual OrientationNot on 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 Medication sent documented in this encounter Plan of Treatment DateTypeDepartmentCare Team (Latest Contact Info)Nsdhsclpghn90/04/2025 9:00 AM ESTRoutine [facility] [place] [facility] [address] [place] [address] Nathan Pop DO [address] [place] [address] documented as of this encounter Visit Diagnoses Diagnosis Hypertension affecting , antepartum ([facility]) documented in this encounter Care Teams Team MemberRelationshipSpecialtyStart DateEnd Date Eliceo Beltran DO [address] [place] [address] PCP - GeneralFamily Medicine02/14/24 Eliceo Beltran DO [address] [place] [address] PCP - Medical [place] [employer]07/27/2412documented as of this encounter
--- OUTSIDE RECORDS SUMMARY | 2025-10-28 15:08 | XMS_ITS | Encounter Summary ---
Author Organization [employer] tem Address [id number] [address] [place] [address] Care Team Providers Care Shearing Shed Hand Name Role Phone Cruz Rodríguez MD Primary Care Provider [phone] Encounter Details DateTypeDepartmentCare Team (Latest Contact Info)Ovbvlhbaibd78/03/2025Travel Social History Tobacco UseTypesPacks/DayYears UsedDateSmoking Tobacco: NeverSmokeless Tobacco: NeverAlcohol UseStandard Drinks/WeekCommentsNo0 (1 standard drink = 0.6 oz pure alcohol)AUDIT-CAnswerDate RecordedQ1: How often do you have a drink containing alcohol?Never09/10/2025Q2: How many drinks containing alcohol do you have on a typical day when you are drinking?Patient does not drink09/10/2025Q3: How often do you have six or more drinks on one occasion?Never09/10/2025hildcareAnswer Date FcxnnzmgVfeiszpulCxwugpa42/13/2019EmploymentAnswerDate RecordedEmployment Cocswes8805/08/2019Hunger ScreeningAnswerDate RecordedWithin the past 12 months we worried whether our food would run out before we got money to buy more.Never True09/10/2025Within the past 12 months the food we bought just didn't last and we didn't have money to get more.Never True09/10/2025Purpose - LifeAnswerDate RecordedPurpose and direction in gvolUwdfkim38/11/2021Estimated Date of AckislukZsrlguqzHjz47/03/2026Based on last menstrual period of 02/21/2025 (Exact Date)Sex and Gender InformationValueDate RecordedSex Assigned at BirthNot on fileLegal NiuUdxtwl24/07/2019 2:55 PM ESTGender IdentityNot on fileSexual OrientationNot on filedocumented as of this encounter Plan of Treatment DateTypeDepartmentCare Team (Latest Contact Info)Mplvubksawo90/09/2025 2:30 PM ESTOffice Visit Maternal- Medicine at [facility] [address] [place] [address] Kayleigh Rizzo, PA-C [address] [address] documented as of this encounter Visit Diagnoses Not on filedocumented in this encounter Care Teams Team MemberRelationshipSpecialtyStart DateEnd Date Cruz Rodríguez MD [address] [place] [address] PCP - GeneralFamily Medicine12/02/18documented as of this encounter
--- OUTSIDE RECORDS SUMMARY | 2025-10-28 15:08 | XMS_ITS | Encounter Summary ---
Author Organization [facility] Address [address] [place] [address] Care Team Providers Care Supervisor Park Workers Name Role Phone NirajEliceo kauffman Primary Care Provider CharlottecarolEliceo Bryant DAY Unavailable [phone] Encounter Details DateTypeDepartmentCare Team (Latest Contact Info)Oiaatnxxert36/21/2025Clinisync Result Encounter [facility] External Department Unsolicited Nathan Pop DO [address] [facility] [address] [facility] [place] [address] Social History Tobacco UseTypesPacks/DayYears UsedDateSmoking Tobacco: NeverSmokeless Tobacco: NeverAlcohol UseStandard Drinks/WeekCommentsNever0 (1 standard drink = 0.6 oz pure alcohol)caffeine: 1-2 cups per day, coffee and vkbR7903 Health Literacy AnswerDate RecordedHow often do you [...] week12/29/2024How often do you attend confucianism or congregation services?Patient /03/2025Do you belong to any clubs or organizations such as confucianism groups, unions, [employer] or athletic leodan ups, or school groups?No12/29/2024How often do you attend meetings of the clubs or organizations you belong to?Patient vipgtaud84/03/2025re you , , , , never , [...] hard at all12/29/2024PHQ-2AnswerDate RecordedPatient Health Questionnaire-2 Score0 07/30/2025Finuintah basin medical center [place] of Occupational Health - Occupational Stress QuestionnaireAnswerDate RecordedDo you feel stress - tense, restless, nervous, or anxious, or unable to sleep at night because yourmind is troubled all the time - these days?Only a dxeovb4912/29/2024Exercise Vital SignAnswerDate Recorded On average, how many [...] steady place to sleep or slept in [facility] (including now)?No09/19/2023Housing Stability Vital SignAnswerDate RecordedIn the [...] the highest degree you have received?High school nyqmoevr65/29/2023 Estimated Date of EwgqutmqLoxatkoeNyr38/03/2026ased on last menstrual period of 02/21/2025Sex and Gender InformationValueDate RecordedSex Assigned at BirthNot on fileLegal KfsKqvxkb08/15/2023 7:18 PM EDTGender IdentityNot on file Sexual OrientationNot on 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 Not on fileNot on fileNot on filedocumented as of this encounter Plan of Treatment DateTypeDepartmentCare Team (Latest Contact Info)Rbcjwyoxzfx29/04/2025 9:00 AM ESTRoutine [facility] [place] [facility] [address] [facility] [place] [address] Nathan Pop DO [address] [facility] [place] [address] documented as of this encounter Procedures Procedure NamePriorityDate/TimeAssociated DiagnosisCommentsURINE CULTURE - FR Rgeixmm2010/16/2025 1:30 PM EST TB[facility] UA (CLEAN/CATCH) MEDICAL DIRECTOR OF HOSPICE/MICRO IF IND.Uijotbe3810/16/2025 1:30 PM EST documented in this encounter [...] CLINISYNC [facility] * (ABNORMAL) [facility] UA (CLEAN/CATCH) MEDICAL DIRECTOR OF HOSPICE/MICRO IF IND. (10/16/2025 1:30 PM EST) ComponentValueRef [...] DOCLINISYNCFinal Result Performing OrganizationAddressCity/State/ZIP CodePhone Number CLINISYNC [facility] documented in this encounter Visit Diagnoses Not on filedocumented in this encounter Care Teams Team MemberRelationshipSpecialtyStart DateEnd Date Eliceo Beltran DO [address] [place] [address] PCP - GeneralFami Medicine02/14/24 Eliceo Beltran DO [address] [place] [address] PCP - Medical [place] [employer]07/27/2412documented as of this encounter
--- OUTSIDE RECORDS SUMMARY | 2025-10-28 15:08 | XMS_ITS | Encounter Summary ---
Author Organization [facility] Address [address] [place] [address] Care Team Providers Care Thermal Technician Name Role Phone Eliceo Beltran Primary Care Provider [phone] CharlottegeovaniEliceo kauffman Unavailable [phone] Encounter Details DateTypeDepartmentCare Team (Latest Contact Info)Dlymezrxwbr68/29/2025Clinisync Result Encounter [facility] External Department Unsolicited Steph Keane, DEVYN [address] [facility] [place] [address] Social History Tobacco UseTypesPacks/DayYears UsedDateSmoking Tobacco: NeverSmokeless Tobacco: NeverAlcohol UseStandard Drinks/WeekCommentsNever0 (1 standard drink = 0.6 oz pure alcohol)caffeine: 1-2 cups per day, coffee and esoQ1918 Health Literacy AnswerDate RecordedHow often do you [...] relatives?Once a week12/29/2024How often do you attend amish or quaker services?Patient apvcalsj22/03/2025Do you belong to any clubs or organizations such as amish groups, unions, [employer] or athletic leodan ups, or school groups?No12/29/2024How [...] hard at all12/29/2024PHQ-2AnswerDate RecordedPatient Health Questionnaire-2 Score0 07/30/2025[facility] [place] [facility] - Occupational Stress QuestionnaireAnswerDate RecordedDo you feel stress - tense, restless, nervous, or anxious, or unable to sleep at night because yourmind is troubled all the time - these days?Only a iwgkbr2812/29/2024Exercise Vital SignAnswerDate Recorded On average, how many [...] the highest degree you have received?High school liskugqm54/29/2023 Estimated Date of PflzcpeqCasxagamBse41/03/2026ased on last menstrual period of 02/21/2025Sex and Gender InformationValueDate RecordedSex Assigned at BirthNot on fileLegal FxkNwvnij62/15/2023 7:18 PM EDTGender IdentityNot on file Sexual OrientationNot on 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 [place] [phone] Nathan Pop, DO [address] [facility] [place] [address] documented as of this encounter Procedures Procedure NamePriorityDate/TimeAssociated DiagnosisCommentsUS OB BPP W NON-AVBBVQ4010/24/2025 10:38 AM EST documented in this encounter Results * US OB BPP W NON-STRESS (10/24/2025 10:38 AM EST)Anatomical Region LateralityModalityOtherSpecimen (Source)Anatomical Location / Laterality Collection Method / VolumeCollection TimeReceived Time10/24/2025 10:38 AM EST Narrative 10/24/2025 10:40 AM EST [facility] ?[address] ? [place] [address] ? Ultrasound Report ? Signed ? Patient: DRISS GAMA ?MR#: [id number] ?? : 1995 ?Acct:[id number] ?? Age/Sex: 30 / F ?ADM Date: 10/24/25 ?? Loc: [facility] ??250-1 ? Attending Dr: Steph Keane ? Ordering Physician: Steph Keane ?? Date of Service: 10/24/25 ?? Procedure(s): US OB BPP w non-stress ?? Accession Number(s): [id number] ? cc: Steph Keane; Yomaira BELTRAN ? [facility] ? [address] ? [place] [address] ? Patient Name: ?? DRISS Sanchez JAYY ? MRN: [id number] ? date: 1995 ?Sex: F ?? Assigned Patient Location: US ?? Current Patient Location: US ?? Accession/Order Number: [id number] ?? Exam Date: 10/24/2025 ??10:08 ?Report Date: [...] w non-stress ?? IMPRESSION: ? Biophysical profile: 8/8 ? Incidental note is made of a nuchal cord. ? Impression dictated by: Will Faria M.D. ??10/24/2025 10:38 AM ? Dictation Location: [facility]17 ? Electronically authenticated by: [id number] ??Y ?? Date: 10/24/2025 ??10:38 ? Dictated By: ?Will Faria M.D. ? Signed By: ?10/24/25 1040 ? DD/ 1038 ? TD/TT: ? Rn Clinical Resource: Procedure Note Radiology, Radiologist, MD - 10/24/2025 [place] [address] Ultrasound Report Signed Patient: DRISS GAMA [facility]#: [id number] : 1995Acct:[id number] Age/Sex: 30 / FADM Date: 10/24/25 Loc: [facility] 250-[address]: Steph Keane Ordering Physician: Steph Keane Date of Service: 10/24/25 Procedure(s): US OB BPP w non-stress Accession Number(s): [id number] cc: Steph Keane; Yomaira BELTRAN The [address] [address] Patient Name: DRISS GAMA MRN: [id number] date: 1995 Sex: F Assigned Patient Location: Current Patient Location: Accession/Order Number: [id number] Exam Date: 10/24/2025 10:08 Report Date: 10/24/2025 [...] Faria M.D. 10/24/2025 10:38 AM Dictation Location: [place] [address] Electronically authenticated by: [id number] Y Date: 0:38 Dictated By: Will Faria M.D. Signed By:10/24/25 1040 DD/ 1038 TD/TT: Rn Clinical Resource: Authorizing ProviderResult TypeResult StatusSteph Keane NPCLINISYNC IMAGING Final Result documented in this encounter Visit Diagnoses Not on filedocumented in this encounter Care Teams Team MemberRelationshipSpecialtyStart DateEnd Date Eliceo Beltran DO [address] [place] [address] [facility] - [facility]24 Eliceo Beltran DO [address] [place] [address] PCP - Medical [place] [employer]07/27/2412documented as of this encounter
--- OUTSIDE RECORDS SUMMARY | 2025-10-28 15:09 | XMS_ITS | Encounter Summary ---
Author Organization [facility] tem Address [id number] [address] [place] [address] Care Team Providers Care Peoplesoft Fscm Developer Name Role Phone Cruz Rodríguez MD Primary Care Provider [phone] Encounter Details DateTypeDepartmentCare Team (Latest Contact Info)Calgfszmuci04/25/2025Orders Only Maternal- Medicine at [facility] [address] [place] [address] Kayleigh Rizzo, PAAlbinC [address] [address] Essential hypertension affecting in third trimester Social [...] or more drinks on one occasion?Never5ChildcareAnswer Date SrissafrWfzcttlesOfwlvmj11/13/2019EmploymentAnswerDate RecordedEmployment Beaosdp0205/08/2019Hunger ScreeningAnswerDate RecordedWithin the past 12 months we worried whether our food would run out before we got money to buy more.Never True09/10/2025Within the past 12 months the food we bought just didn't last and we didn't have money to get more.Never True09/10/2025Purpose - LifeAnswerDate RecordedPurpose and direction in tvhcUcfwlti85/11/2021Estimated Date of LovgrwafSdclhervAvk99/03/2026Based on last menstrual period of 02/21/2025 (Exact Date)Sex and Gender InformationValueDate RecordedSex Assigned at BirthNot on fileLegal XglGjhbcr74/07/2019 2:55 PM ESTGender IdentityNot on fileSexual OrientationNot on filedocumented as of this encounter Plan of Treatment DateTypeDepartmentCare Team (Latest Contact Info)Reccbkdabmb82/09/2025 2:30 PM ESTOffice Visit Maternal- Medicine at [facility] [address] [place] [address] Kayleigh Rizzo PA-C [address] [address] documented as of this encounter Visit Diagnoses Diagnosis Essential hypertension affecting in third trimester documented in this encounter Care Teams Team MemberRelationshipSpecialtyStart DateEnd Date Cruz Rodríguez MD [address] [place] [address] PCP - GeneralFamily Medicine12/02/18documented as of this encounter
--- OUTSIDE RECORDS SUMMARY | 2025-10-28 15:09 | XMS_ITS | Clinical Summary ---
Author Organization [facility] tem Address [id number] [address] [place] [address] Care Team Providers Care Senior Enlisted Advisor Name Role Phone Cruz Rodríguez MD Primary Care Provider [phone] Allergies No known active allergies Medications MedicationSigDispense [...] 23 units subQ at bedtime. 15 mL Discontinued Active Problems ProblemNoted DateDiagnosed DateEssential hypertension affecting in third ifldugtwq37/10/2025Insulin controlled gestational diabetes mellitus (GDM) in third /26/2025Estimated Date of DeliveryCommentsYes 11/28/2025ased on last menstrual period of 02/21/2025 (Exact Date) Encounters DateTypeDepartmentCare GmliDylssjeijay47/03/3158Xwsbjd64/25/2025Telephone Maternal- Medicine at [facility] [address] [place] [address] Cha Harris RN 10/20/2025Orders Only Maternal- Medicine at [facility] [address] [place] [address] Kayleigh Rizzo PA-C Essential hypertension affecting in third unnhbgwyg56/14/2025Orders Only Maternal- Medicine at [facility] [address] [place] [address] Zora Samuels RN Essential hypertension affecting in third trimester (Primary Dx); Insulin controlled gestational diabetes mellitus (GDM) in third trimester 10/08/2025Orders Only Maternal Medicine [place] [address] [facility] [address] [place] [address] Danae Ramirez RN Insulin controlled gestational diabetes mellitus (GDM) in third trimester (Primary Dx); Essential hypertension affecting in third trimester; Encounter for follow-up ultrasound of anatomy; History of pre-eclampsia in prior , currently ; Hx of delivery, currently , second bmscbhreh86/11/2025 2:30 PM ESTTelemedicine Maternal- Medicine at [facility] [address] [place] [address] Kayleigh Rizzo PA-C Insulin controlled gestational diabetes mellitus (GDM) in third trimester (Primary Dx); Essential hypertension affecting in third nnejuqavr11/11/2025Travel 10/05/2025Telephone Maternal- Medicine at [facility] [address] [place] [address] Anjana Davalos RN 10/04/20259027Rtzttw97/03/2025Telephone Maternal- Medicine at [facility] [address] [facility] [place] [address] Cha Harris, DIALLO 09/28/2025Orders Only Maternal- Medicine at [facility] [address] [place] [facility] [address] Kayleigh Rizzo, PA-C Essential hypertension affecting in third daxnkkjxj11/27/2025Telephone Maternal- Medicine at [facility] [address] [place] [facility] [place] [address] Verito Gudino LD 09/21/2025Remote Patient Monitoring Maternal- Medicine at [facility] [address] [place] [address] Kayleigh Rizzo, PA-C Insulin controlled gestational diabetes mellitus (GDM) in third trimester (Primary Dx); Essential hypertension affecting in third anawcjjhs92/23/2025Orders Only Maternal- Medicine at [facility] [address] [place] [place] [address] Camila Arciniega APRN-MARIBEL Essential hypertension affecting in third ixujwjfnw36/22/2025Telephone Maternal- Medicine at [facility] [address] [facility] [place] [address] Cha Harris, DIALLO 09/15/2025Orders Only Maternal- Medicine at [facility] [address] [facility] [place] [address] Kayleigh Rizzo PA-C Essential hypertension affecting in third vbmvwwkxy00/16/2025 11:00 AM EDTTelemedicine Maternal Medicine [place] [address] [facility] [address] [place] [address] Madhuri oMnroy MD 28 weeks gestation of (Primary Dx); Insulin controlled gestational diabetes mellitus (GDM) in second trimester; Essential hypertension affecting in third bqjnaltor41/16/2025Orders Only Maternal- Medicine at [facility] [address] [place] [address] Zora Samuels, DIALLO Essential hypertension affecting in third trimester (Primary Dx); Insulin controlled gestational diabetes mellitus (GDM) in second trimester; Encounter for follow-up ultrasound of jqwzpez0209/10/20251907Ljfjkp97/10/2025 3:00 PM EDTOffice Visit Maternal- Medicine at [facility] [address] [place] [address] Jean Carlos Pina MD Diet controlled gestational diabetes mellitus (GDM) in second trimester (Primary Dx); Essential hypertension affecting in third oymocoanc49/08/2025Travel 09/01/2025Telephone Maternal- Medicine at [facility] [address] [place] [address] Cha Harris RN 08/24/2025 1:30 PM EDTSupport Visit Maternal- Medicine at [facility] [address] [place] [address] Teena Sarmiento RN Kerline Steiner RD Gestational diabetes mellitus (GDM) in second trimester, gestational diabetes method of control tdejxiiqfpx35/28/5131Qdykml79/27/8111Ixcyww56/26/2025bstract Maternal- Medicine at [facility] [address] [place] [address] External, Scanning Provider 08/19/2025Orders Only Maternal- Medicine at [place] [address] [place] [address] Ref Prov, Not In System 08/18/2025bstract Maternal- Medicine at [place] [address] [place] [address] Madhuri Monroy MD 08/18/2025Orders Only Maternal- Medicine at [place] [address] [place] [address] Khalida Garrett RN History of pre-eclampsia in [...] or more drinks on one occasion?Never5ChildcareAnswer Date HkrfxgisWtmpckaxkShyxnoh19/13/2019EmploymentAnswerDate RecordedEmployment Duvtjid2705/08/2019Hunger ScreeningAnswerDate RecordedWithin the past 12 months we worried whether our food would run out before we got money to buy more.Never True09/10/2025Within the past 12 months the food we bought just didn't last and we didn't have money to get more.Never True09/10/2025Purpose - LifeAnswerDate RecordedPurpose and direction in ljhxGlqaaew04/11/2021Estimated Date of KenmzvofQcpabhbzFyy62/03/2026Based on last menstrual period of 02/21/2025 (Exact Date)Sex and Gender InformationValueDate RecordedSex Assigned at BirthNot on fileLegal TttLxkxuq22/07/2019 2:55 PM ESTGender IdentityNot on fileSexual OrientationNot on file Last Filed Vital Signs Vital SignReadingTime TakenCommentsBlood Sexcvpnn905/8010/ 10:34 AM EDT Xkfgh13611/10/2025 2:48 PM EDTTemperature--Respiratory Rgqa363012/10/2018 11:10 AM ESTOxygen Scqxtkkfma88%12/10/2018 11:10 AM ESTInhaled Oxygen Concentration-- Uhtoes51.6 kg (160 lb)09/10/2025 10:34 AM UQBAgqjiv374.5 cm (5' 2.01 )09/04/2025 2:48 PM EDTBody Mass Index29.261 2:48 PM EDT Plan of Treatment DateTypeDepartmentCare Team (Latest Contact Info)Jmakejzrbiw74/09/2025 2:30 PM ESTOffice Visit Maternal- Medicine at [facility] [address] [place] [address] Kayleigh Rizzo PA-C [address] [address] Health MaintenanceDue DateLast DoneCommentsDepression Cyebxdyrk52/08/2007dult BMI Follow Up Plan2013DTaP,Tdap and Td Vaccines (7 - Td or Tdap)2024 2014, 05/03/2000, 12/29/1997, Additional history existsInfluenza Vaccine RSV ( or age 60+ yrs) (1 - Risk 1-dose series)10/03/2025dult BMI Qixdinmrl12Tobacco Screening Pap Smear Medical Devices Not on file Procedures Procedure NamePriorityDate/TimeAssociated DiagnosisCommentsUS MFM OB FOLLOW-UP, 1 ABNUFWmoivip25/13/2025 8:55 AM EST Essential hypertension affecting in third trimester Insulin controlled gestational diabetes mellitus (GDM) in second trimester Encounter for follow-up ultrasound of anatomy US MFM COMPREHENSIVE ANATOMIC DJSJCWXtmyaxp51/16/2025 10:56 AM EDT History of pre-eclampsia in prior , currently GLUCOSE TOLERANCE, 3 DIRCPAcahehl06/20/2025 GLUCOSE TOLERANCE, FJJAEHVHyhqlmg50/20/2025 GLUCOSE TOLERANCE, 1 ADXNYufzqiv56/20/2025 SECOND HOUR GLUCOSE TOLERANCE 100 GM APSWEoxxvhr30/20/2025 ULTRASOUND AOKBJWNgecvly88/17/2025 3:39 PM EDTGLU 1H POST 50G LOADRoutine [...] REYNAGA : 1995 SEX: F Accession Number: [id number] ORDERING PHYSICIAN: MADHURI MONROY REFERRING PHYSICIAN: JONY MEJÍA Coding Procedures ? 94346: Ultrasound, uterus, real time with image documentation, follow up,transabdominal ? approach per fetus Indication Screening for follow-up survey, Gestational diabetes, Chronic hypertension affecting , History of prior with pre-eclampsia , History of prior with delivery , Previous surgery to cervix -(D&C). History OB History ? 2. Para 1 ? N9H2D6O9 Current Cell free DNA ?Low Risk analysis [...] (oz) ? 11 oz EFW by: ?Hadlock (JGI-EN-FQ-FL) Extended Tibia ??52.5 mm 31w 1d 20% Gerda Director Peoplesoft ? 2.7 mm Head / Face / Neck Cephalic index 0.82 ? 75% Nicolaides Nasal bone: ?documented previously Extremities / Bony Struc FL / BPD ? 0.66 FL / HC ?0.19 FL / AC ?0.20 Other Structures FHR ?141 bpm Anatomy The following structures appear normal: Head/Neck: Cranium. Lateral ventricles. Cavum septi pellucidi. Parenchyma. Heart/Thorax: 4-chamber view. 3-vessel view. 2-ycfqok-caomgja view. Bicaval view. Cardiac rhythm. ? Diaphragm. [...] MVP measures 5.1 cm. Recommendations Please see [facility] recommendations from prior clinical and/or ultrasound [...] REYNAGA : 1995 SEX: F Accession Number: [id number] ORDERING PHYSICIAN: MADHURI MONROY REFERRING PHYSICIAN: JONY MEJÍA Coding Procedures [address]: Ultrasound, uterus, real time with image documentation, follow up, transabdominal approach per fetus Indication Screening for follow-up survey, Gestational diabetes, Chronic hypertension affecting , History of prior with pre-eclampsia , History of prior with delivery ,Previous surgery to cervix -(D&C). History OB History 2. Para 1 O2D4F2O3 Current Cell free DNA Low Risk analysis [...] EFW (oz) 11 oz EFW by: Hadlock (SXM-JE-KM-FL) Extended Tibia 52.5 mm 31w 1d 20% Gerda Director Peoplesoft 2.7 mm Head / Face / Neck Cephalic index 0.82 75% Nicolaides Nasal bone: documented previously Extremities / Bony Struc FL / BPD 0.66 FL / HC 0.19 FL / AC 0.20 Other Structures FHR 141 bpm Anatomy The following structures appear normal: Head/Neck: Cranium. Lateral ventricles. Cavum septi pellucidi.Parenchyma. Heart/Thorax: 4-chamber view. 3-vessel view. 0-bfgmop-nrnmdbo view.Bicaval view. Cardiac rhythm. Diaphragm. Abdomen: Stomach. [...] MVP measures 5.1 cm. Recommendations Please see [facility] recommendations from prior clinical and/or ultrasoundreport documentation. The patient is scheduled in four to six week(s) to complete anatomicsurvey. Subsequent follow up or other follow up as clinically determined byprimary OB provider unless otherwise specified by [facility]. Results forwarded to ordering provider so they can follow up with thepatient as necessary. Authorizing ProviderResult TypeResult StatusMadhuri [place] ORDERABLESFinal Result * 2nd hr Glucose Tolerance 100 gm load (08/15/2025)ComponentValueRef RangeTest MethodAnalysis TimePerformed AtPathologist SignatureGlucose Tolerance Test 2 Afwa568RBEVKVIP TRANSCRIBED RESULTSSpecimen (Source)Anatomical Location / LateralityCollection Method / VolumeCollection TimeReceived TimeBloodVenous blood / Unknown Narrative Authorizing ProviderResult TypeResult StatusNot In System Ref ProvLAB BLOOD ORDERABLESFinal ResultPerforming OrganizationAddressCity/State/ZIP CodePhone Number MANUALLY TRANSCRIBED RESULTS * Glucose tolerance, 1 hour (08/15/2025)ComponentValueRef RangeTest Method Analysis TimePerformed AtPathologist SignatureGlucose Tolerance Test 1 Kgog329 MANUALLY TRANSCRIBED RESULTSSpecimen (Source)Anatomical Location / Laterality Collection Method / VolumeCollection TimeReceived TimeBloodVenous blood / Unknown Narrative Authorizing ProviderResult TypeResult StatusNot In System Ref ProvLAB BLOOD ORDERABLESFinal ResultPerforming OrganizationAddressCity/State/ZIP CodePhone Number MANUALLY TRANSCRIBED RESULTS * Glucose tolerance, 3 hours (08/15/2025)ComponentValueRef RangeTest Method Analysis TimePerformed AtPathologist SignatureGlucose Tolerance Test 3 Oneq069 MANUALLY TRANSCRIBED RESULTSSpecimen (Source)Anatomical Location / Laterality Collection Method / VolumeCollection TimeReceived TimeBloodVenous blood / Unknown Narrative Authorizing ProviderResult TypeResult StatusNot In System Ref ProvLAB BLOOD ORDERABLESFinal ResultPerforming OrganizationAddressCity/State/ZIP CodePhone Number MANUALLY TRANSCRIBED RESULTS * Glucose, tolerance fasting (08/15/2025)ComponentValueRef RangeTest Method Analysis TimePerformed AtPathologist SignatureGlucose Tolerance Test Wwqxplv92 MANUALLY TRANSCRIBED RESULTSSpecimen (Source)Anatomical Location / Laterality [...] TimePerformed AtPathologist SignatureGlucose, 1 hr PP 50GM idtn359 MANUALLY TRANSCRIBED RESULTSSpecimen (Source)Anatomical Location / Laterality Collection Method / VolumeCollection TimeReceived TimeBloodVenous blood / Unknown Narrative Authorizing ProviderResult TypeResult StatusNot In System Ref ProvLAB BLOOD ORDERABLESFinal ResultPerforming OrganizationAddressCity/State/ZIP CodePhone Number MANUALLY TRANSCRIBED RESULTS from Last 3 Months Insurance Care Teams Team MemberRelationshipSpecialtyStart DateEnd Cruz Rodríguez MD [address] [place] [address] PCP - GeneralFamily Medicine12/02/18
--- OUTSIDE RECORDS SUMMARY | 2025-10-28 15:09 | XMS_ITS | Encounter Summary ---
Author Organization [facility] Address [address] [place] [address] Care Team Providers Care Log Stacker Operator Name Role Phone Eliceo Beltran DO Primary Care Provider CharlottecarolEliceo Unavailable [phone] Encounter Details DateTypeDepartmentCare Team (Latest Contact Info)Nevpeaqiwrt92/19/2025Bamboo flowsheet [facility] [place] [facility] [address] [place] [address] Nathan Pop DO [address] [facility] [facility] [address], [place] [address] Social History Tobacco UseTypesPacks/DayYears UsedDateSmoking Tobacco: NeverSmokeless Tobacco: NeverAlcohol UseStandard Drinks/WeekCommentsNever0 (1 standard drink = 0.6 oz pure alcohol)caffeine: 1-2 cups per day, coffee and isdL5427 Health Literacy AnswerDate RecordedHow often do you [...] week12/29/2024How often do you attend judaism or anabaptism services?Patient qhqoyina00/03/2025Do you belong to any clubs or organizations such as judaism groups, unions, [employer] or athletic leodan ups, or school groups?No12/29/2024How often do you attend meetings of the clubs or organizations you belong to?Patient zxvondym06/03/2025re you , , , , never , [...] all12/29/2024PHQ-2AnswerDate RecordedPatient Health Questionnaire-2 Score0 07/30/2025[facility] [place] [facility] - Occupational Stress QuestionnaireAnswerDate RecordedDo you feel stress - tense, restless, nervous, or anxious, or unable to sleep at night because yourmind is troubled all the time - these days?Only a fyzwiv7412/29/2024Exercise Vital SignAnswerDate Recorded On average, how many [...] have received?High school /29/2023 Estimated Date of XhonazclXjscdfhsBnz32/03/2026ased on last menstrual period of 02/21/2025Sex and Gender InformationValueDate RecordedSex Assigned at BirthNot on fileLegal MkrAskfqu85/15/2023 7:18 PM EDTGender IdentityNot on file Sexual OrientationNot on 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 [place] [address] documented as of this encounter Visit Diagnoses Not on filedocumented in this encounter Care Teams Team MemberRelationshipSpecialtyStart DateEnd Date Eliceo Beltran DO [address] [address] PCP - GeneralFamily Medicine02/14/24 Eliceo Beltran DO [address] [place] [address] PCP - Medical [place] [employer]07/27/2412documented as of this encounter
--- OUTSIDE RECORDS SUMMARY | 2025-10-28 15:09 | XMS_ITS | Encounter Summary ---
Author Organization [facility] tem Address [id number] [place] [address] Care Team Providers Care Condemnation Engineer Name Role Phone Cruz Rodríguez MD Primary Care Provider [phone] Encounter Details DateTypeDepartmentCare Team (Latest Contact Info)Gknrfepcwjm54/25/2025Telephone Maternal- Medicine at [facility] [address] [facility] [place] [phone] Cah Harris, DIALLO Social History Tobacco UseTypesPacks/DayYears UsedDateSmoking Tobacco: NeverSmokeless Tobacco: NeverAlcohol UseStandard Drinks/WeekCommentsNo0 (1 standard drink = 0.6 oz pure alcohol)AUDIT-CAnswerDate RecordedQ1: How often do you have a drink containing alcohol?Never09/10/2025Q2: How many drinks containing alcohol do you have on a typical day when you are drinking?Patient does not drink09/10/2025Q3: How often do you have six or more drinks on one occasion?Never5ChildcareAnswer Date HvigtghjWeessvciqSzptmfb25/13/2019EmploymentAnswerDate RecordedEmployment Whfcere1805/08/2019Hunger ScreeningAnswerDate RecordedWithin the past 12 months we worried whether our food would run out before we got money to buy more.Never True09/10/2025Within the past 12 months the food we bought just didn't last and we didn't have money to get more.Never True09/10/2025Purpose - LifeAnswerDate RecordedPurpose and direction in apspGoerjty39/11/2021Estimated Date of WhnaezezHngkznhmIdf75/03/2026Based on last menstrual period of 02/21/2025 (Exact Date)Sex and Gender InformationValueDate RecordedSex Assigned at BirthNot on fileLegal HzaBwqlgg68/07/2019 2:55 PM ESTGender IdentityNot on fileSexual OrientationNot on filedocumented as of this encounter Miscellaneous Notes * Telephone Encounter - Cha Harris RN - 10/20/2025 2:50 PM EST Called pt to discuss her insulin change and received voicemail. Left her a message that Kayleigh Rzizo reviewed her blood sugars and would like her to increase her lantus in the evening to 25 units. Asked her to please call back to verify that she got this new change for this week. documented in this encounter Plan of Treatment DateTypeDepartmentCare Team (Latest Contact Info)Okfzisggymq54/09/2025 2:30 PM ESTOffice Visit Maternal- Medicine at [facility] [address] [place] [phone] Kayleigh Rizzo, PAAlbinC [address] [address] documented as of this encounter Visit Diagnoses Diagnosis Insulin controlled gestational diabetes mellitus (GDM) in second trimester documented in this encounter Care Teams Team MemberRelationshipSpecialtyStart DateEnd Date Cruz Rodríguez MD [address] [place] [address] PCP - GeneralFamily Medicine12/02/18documented as of this encounter
--- OUTSIDE RECORDS SUMMARY | 2025-10-28 15:13 | XMS_ITS | CCD ---
Author Organization [facility] Care Team Providers Care Ed Manager Name Role Phone Unavailable Unavailable POCOPAL QUINTEROS Referring Unavailable DENNY RODRÍGUEZ Primary Care Unavailable OPAL LARA Referring Unavailable DENNY RODRÍGUEZ Primary Care Unavailable DENNY RODRÍGUEZ Primary Care Physician Domo Hodges Unavailable PAOLO DIALLO Attending Unavailable KATHE RYDER Admitting Unavailable KATHE RYDER Attending Unavailable Denny Rodríguez MD Primary Care Provider [phone] Denny Rodríguez MD Unavailable Denny Rodríguez MD Primary Care Provider Denny Rodríguez MD Unavailable Kita ADVERTISING ASSISTANT MANAGER, Zenobia Unavailable Keesha ADVERTISING ASSISTANT MANAGER, Trista R Unavailable [phone] Denny Rodríguez MD Primary Care Provider [phone] CHARLENE RDORIGUEZ Referring Unavailable RODRÍGUEZ, DENNY SAHIL Primary Care [...] Care Provider Kiesha DO, Nathan Attending Provider [phone] Kiesha, Nathan Admitting Unavailable Kiesha, Nathan [...] Unavailable KIESHA, Nathan R Attending Unavailable KIESHA, Anthan R Admitting Unavailable ELSAANA LAURA DUMONT Attending Unavailable ELSA, ANA LAURA TYSON Admitting Unavailable Denny Rodríguez MD Primary Care Provider KIESHA, NATHAN R Referring Unavailable RODRÍGUEZ, DENNY A Primary Care Unavailable MADHURI MONROY Attending Unavailable RODRÍGUEZ, DENNY A Referring Unavailable ORDRÍGUEZ, DENNY A Primary Care Unavailable Denny Rodríguez MD Unavailable [phone] Denny Rodríguez MD Primary Care Provider Denny Rodríguez MD Unavailable Ktia ADVERTISING ASSISTANT MANAGER, Zenobia Unavailable Keesha ADVERTISING ASSISTANT MANAGER, Trista R Unavailable [phone] ELICEO BELTRAN Attending Unavailable KIESHA, NATHAN Attending [...] [No Known Medication Allergies]Propensity to adverse reactions (disorder)[facility] Medications Current Medications MedicationDrug Class(es)DatesSig (Normalized)Sig (Original)acetaminophen 325 mg / butalbital 50 mg / caffeine 40 mg oral tablet (14 sources)Barbiturate, Central Nervous System Stimulant, MethylxanthineStart: 02-19-2024 End: 56-59-2571bxny 1 tablet by mouth every six hours for headache nnmlolqfoz-urnzjwggfdald-ylgxmdwg 50-325-40 MG tablet Indications: Other migraine without status migrainosus, not intractable Take 1 tablet by mouth every 6 (six) hours if needed for headaches 20 tablet 02/19/2024 05/01/2025 Discontinuedatenolol 25 mg oral tablet (4 sources)beta-Adrenergic BlockerStart: 53-84-7226rfme 1 mg by mouth once daily atenolol 25 mg Tab mg tab(s), Oral, Daily, Refills(s) 0 Start Date: 02/02/21 Status: OrderedStart: 08-06-2017 End: 04-40-3524sqbe 1 tablet by mouth once dailyAtenolol 50 mg tablet Discontinued 50 MG PO Daily August 06, 2017 12:00am October 16, 2018 3 :34pmbaclofen suppository 10 mg (CPD) (8 sources)Start: 28-12-4776kwlxzpjc suppository 10 mg (CPD) Indications: High- tone pelvic floor dysfunction , Chronic pelvic pain in female Unwrap and insert one suppository vaginally daily at bedtime. 30 Suppository 2 08/24/2023 Active Comment on above:Unwrap and insert one suppository vaginally daily at bedtime. Blood Glucose Monitoring Suppl (D-Care Glucometer) w/Device kit (20 sources)Start: 08-20-2025 End: 12-91-7760Rgyck Glucose Monitoring Suppl (D-Care Glucometer) w/Device kit Indications: Gestational diabetes mellitus (GDM), antepartum, gestational diabetes method of control unspecified ([facility]) , Elevated glucose tolerance test 1 kit Daily Use four times daily to check FSBS. In the morning prior to breakfast & 1 hour after each meal for a total of 4times daily. 1 kit 08/20/2025 08/20/2026 Activecephalexin 500 mg oral capsule (6 sources)Cephalosporin AntibacterialStart: 02-14-2021 End: 27-61-9113zbxa 1 capsule by mouth every twelve hoursKeflex 500 mg Cap 500 mg = 1 cap(s), Oral, q12hr, X 7 day(s), # 14 cap(s), Refills(s) 0 Start Date: 07/14/22 Stop Date: 07/21/22 Status: OrderedStart: 03-14-2019 End: 88-77-9215vnvt 1 capsule by mouth every twelve hoursCephalexin (Keflex) 500 mg capsule Discontinued 500 MG PO Q12H 14 March 14, 2019 12:00am August 04, 2019 8:18amcyclobenzaprine hydrochloride 5 mg oral tablet (20 sources)Muscle RelaxantStart: 12-30-2024 End: 85-23-4742ludg 1 tablet by mouth in the morning, [...] 30 tablet 12/30/2024 01/09/2025 ActiveStart: 05-01-2023 End: 47-08-8355dkzx 1 tablet by mouth at bedtime as neededcyclobenzaprine (FLEXERIL) 5 mg tablet Indications: Dysmenorrhea , Chronic pelvic pain in female Take 1 tablet by mouth at bedtime as needed. 30 tablet 1 05/01/2023 ActiveStart: 71-98-1125rfcd 1 tablet by mouth three times daily as needed for muscle spasms cyclobenzaprine 10 mg Tab 10 mg = 1 tab(s), Oral, TID, PRN for spasm, # 30 tab(s), Refills(s) 0, Pharmacy: [facility], 157, cm, 01/23/22 7:20:00 EST, Height/Length Dosing, 55, kg, 01/23/22 7:20:00 EST, Weight Dosing Start Date: 01/23/22 Status: Ordered Quantity: 30.0 Unit: tab(s) Repeat number: 1 Comment on above:Take 1 tablet by mouth at bedtime as needed.cyproheptadine hydrochloride 4 mg oral tablet (10 sources)Start: 42-89-3299umnp 1 mg by mouth three times dailycyproheptadine 4 mg Tab mg tab(s), Oral, TID, Refills(s) 0 Start Date: 02/02/21 Status: Ordered Repeat number: 1Dasetta oral tablet (1 source)Start: 65-15-9597kujk 1 tablet by mouth once dailyDasetta oral tablet 1 tab(s), Oral, Daily, Refill(s) 0, control/menstrual regulation Start Date: 11/23/16 Status: Ordereddocusate sodium 100 mg oral capsule (7 sources)Start: 11-30-2022 End: 92-98-0208opgg 1 capsule by mouth twice daily as needed for constipation Docusate Sodium (DSS) 100 MG capsule Take 1 capsule (100 mg) by mouth 2 times daily as needed for constipation (Vaginal Delivery) for up to 10 days. 60 capsule 0 12/01/2022 12/31/2022 ActiveStart: 07-14-2022 End: 06-36-8222incp 1 capsule by mouth twice dailyColace 100 mg Cap 100 mg = 1 cap(s), Oral, BID, X 10 day(s), # 20 cap(s), Refills(s) 0 Start Date: 07/14/22 Stop Date: 07/24/22 Status: Orderedelagolix 150 mg oral tablet (13 sources)Start: 07-16-2023 End: 62-71-2385mwed 1 tablet by mouth once dailyelagolix (ORILISSA) 150 mg tablet Take 1 tablet (150 mg) by mouth once daily. 30 tablet 11 07/16/2023 07/15/2024 ActiveStart: 19-73-9008jces 1 tablet by mouth twice dailyOrilissa 200 MG Oral Tablet take 1 tablet by mouth twice a day Quantity: 60 Refills: 4 Ordered: 09-Feb-2022 Charlene Rodriguez DO Start : 09-Feb-2022 ActiveComment on above:Take 1 tablet (150 mg) by mouth once daily.ergocalciferol 0.05 mg oral capsule (1 source)Provitamin D2 CompoundStart: 67-02-3219Gizmwpp D2 2000 intl units oral capsule Oral, Daily, Refills(s) 0 Start Date: 02/02/21 Status: OrderedEthinyl Estradiol / Levonorgestrel (8 sources)Progestin, Estrogen, Progestin-containing Intrauterine DeviceStart: 04-03-2024 End: 81-44-0681omghosavsrkylv-ethinyl estradiol (Jolessa) 0.15-0.03 MG tablet Indications: Uses control TAKE1 TABLET BY MOUTH EVERY MORNING 91 tablet 3 04/03/2024 08/18/2024 Discontinued (Other)Start: 88-61-9932amecndsedtnmec- ethinyl estradiol (Jolessa) 0.15-0.03 MG tablet Indications: Uses control TAKE1 TABLET BY MOUTH EVERY MORNING 91 tablet 3 04/03/2024 ActiveStart: 01-10-2024 End: 50-15-2910jqqh 1 tablet by mouth in the morning, then take 1 tablet by mouth once dailylevonorgestrel-ethinyl estradiol (Jolessa) 0.15-0.03 MG tablet Indications: Uses control Take1 tablet by mouth in the morning. Take 1 tablet by mouth daily. 90 tablet 0 01/10/2024 04/09/2024 Activeethinyl estradiol 0.035 mg / norgestimate 0.25 mg oral tablet (4 sources)Progestin, EstrogenStart: 23-64-0892fxbnkqskmidx-ethinyl estradiol (Ortho-Cyclen) 0.25-35 MG-MCG tablet 1 (one) time each day at the same time. 0 01/15/2023 ActiveStart: 73-63-1297uwec 1 tablet by mouth once dailyNorgestimate- Ethinyl Estradiol 0.25-35 mg-mcg tablet Active 1 TAB PO Daily August 04, 2019 12:00amMono-Linyah 0.25-35 MG-MCG Oral for 28 Not-TakinghydrOXYzine hydrochloride 25 mg oral tablet (10 sources)AntihistamineStart: 55-03-9804femr 1 mg by mouth four times daily hydrOXYzine hydrochloride 25 mg Tab mg tab(s), Oral, QID, Refills(s) 0 Start Date: 02/02/21 Status: Ordered Repeat number: 1hyoscyamine sulfate 0.125 mg oral tablet (10 sources)Start: 97-86-0593tikc 1 tablet by mouth every six hoursLevsin 0.125 mg SL Tab 0.125 mg = 1 tab(s), Oral, q6hr, # 20 tab(s), Refills(s) 1, Pharmacy: [facility], 161, cm, 03/10/21 11:21:00 EDT, Height/Length Dosing, 56, kg, 03/10/21 11:21:00 EDT, Weight Dosing Start Date: 03/10/21 Status: Ordered Quantity: 20.0 Unit: tab(s) Repeat number: 2ibuprofen 600 mg oral tablet (15 sources)Nonsteroidal Anti-inflammatory DrugStart: 01-23-2022 End: 27-66-9506tnus 1 tablet by mouth every six hoursibuprofen 600 mg Tab 600 mg = 1 tab(s), Oral, q6hr, # 40 tab(s), Refills(s) 0, [facility]: [facility], 157, cm, 01/23/22 7:20:00 EST, Height/Length Dosing, 55, kg, 01/23/22 7:20:00 EST, WeightDosing Start Date: 01/23/22 Status: Ordered Quantity: 40.0 Unit: tab(s) Repeat number: 1insulin glargine-yfgn (Semglee-yfgn) 100 UNIT/ML pen (8 sources)Start: 74-73-8402mpwcntt glargine-yfgn (Semglee-yfgn) 100 UNIT/ML pen Inject 13 Units under the skin at bedtime 09/15/2025 Activeinsulin glargine-yfgn 100 unit/mL (3 mL) insulin pen (16 sources)Start: 19-20-4289ysdffho glargine-yfgn 100 unit/mL (3 mL) insulin pen Indications: Essential hypertension affecting in third trimester Prime with 2 units and give 5 units every morning and 23 units subQ at bedtime. 15 mL 3 09/28/2025 ActiveStart: 09-21-2025 End: 43-22-4218tmcwnzp glargine-yfgn 100 unit/mL (3 mL) insulin pen Indications: Essential hypertension affecting in third trimester Prime with 2 units and give 5 units every morning and 20 units subQ at bedtime. 15 mL 3 09/21/2025 09/28/2025 DiscontinuedStart: 76-26-0534bhrkyiu glargine-yfgn 100 unit/mL (3 mL) insulin pen Indications: Essential hypertension affecting in third trimester Prime with 2 units and give 5 units every morning and 20 units subQ at bedtime. 15 mL 3 09/21/2025 ActiveStart: 09-17-2025 End: 25-72-2773wvtkney glargine-yfgn 100 unit/mL (3 mL) insulin pen Indications: Essential hypertension affecting in third trimester Prime with 2 units and give 5 units every morning and 17 units subQ at bedtime. 15 mL 3 09/17/2025 09/21/2025 DiscontinuedStart: 41-74-9261givcjis glargine-yfgn 100 unit/mL (3 mL) insulin pen Indications: Essential hypertension affecting in third trimester Prime with 2 units and give 5 units every morning and 17 units subQ at bedtime. 15 mL 3 09/17/2025 ActiveStart: 09-15-2025 End: 63-42-0847csjieml glargine-yfgn 100 unit/mL (3 mL) insulin pen Indications: Essential hypertension affecting in third trimester Prime with 2 units and give 17 units subQ at bedtime. 15 mL 3 09/15/2025 09/17/2025 Discontinued Start: 96-75-4456sggbcxk glargine-yfgn 100 unit/mL (3 mL) insulin pen Indications: Essential hypertension affecting in third trimester Prime with 2 units and give 17 units subQ at bedtime. 15 mL 3 09/15/2025 ActiveStart: 09-10-2025 End: 53-21-8842kefqfvj glargine-yfgn 100 unit/mL (3 mL) insulin pen Indications: Essential hypertension affecting in third trimester Prime with 2 units and give 13 units subQ at bedtime. 15 mL 3 09/10/2025 09/15/2025 Discontinued Start: 85-48-4813aakxhkq glargine-yfgn 100 unit/mL (3 mL) insulin pen Indications: Essential hypertension affecting in third trimester Prime with 2 units and give 13 units subQ at bedtime. 15 mL 3 09/10/2025 ActiveStart: 09-04-2025 End: 66-48-6121gqbrpo 2 [IU] by subcutaneous injection once, then inject 10 [IU] by subcutaneous injection at bedtimeinsulin glargine-yfgn 100 unit/mL (3 mL) insulin pen Indications: Diet controlled gestational diabetes mellitus (GDM) in second trimester , Essential hypertension affecting in third trimester Prime with 2 units and give 10 units subQ at bedtime. 15 mL 3 09/04/2025 09/10/2025 DiscontinuedStart: 60-41-3097hvyvgq 2 [IU] by subcutaneous injection once, then inject 10 [IU] by subcutaneous injection at bedtimeinsulin glargine- yfgn 100 unit/mL (3 mL) insulin pen Indications: Diet controlled gestational diabetes mellitus (GDM) in second trimester , Essential hypertension affecting in third trimester Prime with 2 units and give 10 units subQ at bedtime. 15 mL 3 09/04/2025 Activeisopropyl alcohol 0.7 ml/ml medicated pad (20 sources)Start: 99-04-1275Tjegutp Swabs (Alcohol Prep Pad) 70 % pads Indications: Gestational diabetes mellitus (GDM), antepartum, gestational diabetes method of control unspecified ([facility]) , Elevated glucose tolerance testApply 1 Pad topically Daily Use four times daily to check FSBS. 150 each 3 08/20/2025 Activeiv contrast (will be provided with radiology test) (12 sources)Start: 58-96-0107af contrast (will be provided with radiology test) [...] 200 mg oral tablet (20 sources)beta-Adrenergic BlockerStart: 70-65-2752tbjz 1 tablet by mouth in the morninglabetalol (Normodyne) 200 MG tablet Indications: Gestational Hypertension Take 1 tablet (200 mg) bymouth in the morning and 1 tablet (200 mg) before bedtime. 60 tablet 3 09/03/2025 ActiveStart: 07-30-2025 End: 85-82-9514tvkc 1 tablet by mouth in the morninglabetalol (Normodyne) 100 MG tablet Indications: Hypertension, unspecified type Take 1 tablet (100 mg) by mouth in the morning and 1 tablet (100 mg) before bedtime. 60 tablet 5 07/30/2025 09/03/2025 DiscontinuedStart: 11-28-2022 End: 09-67-9636hfutdinwt (Normodyne,Trandate) injection 20 mgStart: 11-28-2022 End: 79-64-7886njdqakamm (Normodyne,Trandate) injection 20 mgStart: 11-28-2022 End: 01-79-9414btzeettrr (Normodyne,Trandate) 5 MG/ML injection - Pyxis ADS Override Pulltake 2 tablets by mouth three times dailylabetaloL (NORMODYNE) 100 mg tablet Take 2 tablets (200 mg total) by mouth 3 (three) times a day. Active magnesium oxide 400 mg oral tablet (9 sources)Start: 05-01-2025 End: 54-96-1410nuub 1 tablet by mouth once dailymagnesium oxide (Mag-Ox) 400 MG tablet Indications: headache in first trimester ([facility])Take 1 tablet (400 mg) by mouth Daily 30 tablet 3 05/01/2025 05/31/2025 Activemeloxicam 15 mg oral tablet (15 sources)Nonsteroidal Anti-inflammatory DrugStart: 02-02-2021 End: 30-54-4130uvaz 1 tablet by mouth once dailymeloxicam (Mobic) 15 MG tablet Indications: Chronic right shoulder pain , Scapular dyskinesis Take 1 tablet (15 mg) by mouth Daily 30 tablet 3 12/30/2024 05/01/2025 Wudsnqtytagf62 hr metoprolol succinate 25 mg extended release oral tablet (20 sources)beta-Adrenergic BlockerStart: 10-15-2024 End: 72-57-5255dtjv 1 tablet by mouth once dailymetoprolol succinate XL (Toprol- XL) 25 MG 24 hr tablet Indications: Hypertension, unspecified type Take 1 tablet by mouth daily 90 tablet 1 12/30/2024 ActiveStart: 44-99-3889rued 1 tablet by mouth once dailymetoprolol succinate XL (Toprol-XL) 25 MG 24 hr tablet Indications: Hypertension, unspecified type (CMS/HCC) Take 1 tablet by mouth daily 90 tablet 1 04/23/2024 ActiveStart: 26-04-5527hdcf 1 tablet by mouth once dailymetoprolol succinate XL (Toprol-XL) 25 MG 24 hr tablet Indications: Hypertension, unspecified type (CMS/HCC) Take 1 tablet by mouth daily 90 tablet 1 10/23/2023 ActiveStart: 02-27-2023 End: 05-46-4835izvnnmdcua succinate ER (TOPROL XL) 25 mg 24 hr tabletnaproxen 500 mg delayed release oral tablet (20 sources)Nonsteroidal Anti-inflammatory DrugStart: 61-71-9106gyne 1 tablet by mouth twice dailynaproxen 500 mg oral enteric coated tablet 500 mg = 1 tab(s), Oral, BID, # 28 tab(s), Refills(s) 0 Start Date: 11/07/21 Status: Ordered Quantity: 28.0 Unit: tab(s) Repeat number: 1Start: 03-04-2021 End: 38-25-3550shqu 1 tablet by mouth twice dailynaproxen 500 mg Tab 500 mg = 1 tab(s), Oral, BID, Take one tab by mouth two times a day, # 14 tab(s), Refills(s) 0, [facility], cm, 03/04/21 7:22:00 EDT, Height/Length Dosing,52, kg, 03/04/21 7:22:00 EDT, Weight Dosing Start Date: 03/04/21 Status: Ordered Quantity: 14.0 Unit:tab(s) Repeat number: 1Start: 11-02-2018 End: 78-09-8460gedc 1 tablet by mouth twice daily as [...] (5 sources)Dihydropyridine Calcium Channel BlockerStart: 11-28-2022 End: 35-13-6763UIWSvjvtjy XL (Procardia XL) 30 MG 24 hr tablet Take 1 tablet (30 mg) by mouth daily. Do not crush,chew, or split. Do not start before December 02, 2022. 90 tablet 0 12/02/2022 12/02/2023 Activenorethindrone acetate 5 mg oral tablet (20 sources)Start: 05-17-2023 End: 99-50-3095fupt 2 tablets by mouth once dailynorethindrone (AYGESTIN) 5 mg tablet Take 2 tablets by mouth once daily. 60 tablet 5 01/03/2024 07/01/2024 ActiveStart: 04-11-2023 End: 46-45-5940qouf 1 tablet by mouth once dailynorethindrone (AYGESTIN) 5 mg tablet Take 1 tablet by mouth once daily. 30 tablet 11 04/11/2023 ActiveStart: 51-39-4404xclp 1 tablet by mouth once dailyNorethindrone Acetate [...] mg/ml rectal foam (2 sources)Start: 07-14-2022 End: 78-36-0616obmo 15 g rectal route twice dailyProctoFoam 1% Foam apply, Rectal, BID for 7 day(s), 15 gm, Refill(s) 0 Start Date: 07/14/22 Stop Date: 07/21/22 Status: OrderedPrenatal Multivitamins with Vitamin B Complex, Vitamin C, Minerals and L-Methylfolate oral capsule (9 sources)Start: 66-69-5042Cjzfohsf Multivitamins with Vitamin B Complex, Vitamin C, Minerals and L-Methylfolate oral capsule 1 cap(s), Oral, Daily, 30 cap(s), Refill(s) 0 Start Date: 07/14/22 Status: Ordered Quantity: 30.0 Unit: cap(s) Repeat number: 1Start: 63-87-9379Zmypdidh Multivitamins with Vitamin B Complex, Vitamin C, Minerals and L-Methylfolate oral capsule 1 cap(s), Oral, Daily, 30 cap(s), Refill(s) 0 Start Date: 07/14/22 Status: OrderedPrenatal Vit-Fe Fumarate-FA ( Vitamin) 27-0.8 MG tablet (3 sources) Vit-Fe Fumarate-FA ( Vitamin) 27-0.8 MG tablet Take by mouth. 0 ActivePrenatal Vit-Fe Fumarate-FA ( Vitamins) 28-0.8 MG tablet (20 sources)Start: 05-01-2025 End: 56-67-9688rruz 1 tablet by mouth once dailyPrenatal Vit-Fe Fumarate-FA ( Vitamins) 28-0.8 MG tablet Indications: , unspecified gestational age ([facility]) , Encounter for supervision of normal first in first trimester([facility]) Take 1 tablet by mouth Daily 30 tablet 11 05/01/2025 05/01/2026 ActiveStart: 05-01-2025 End: 63-24-6877rlvj 1 tablet by mouth once dailyPrenatal Vit-Fe Fumarate-FA ( Vitamins) 28-0.8 MG tablet Indications: , unspecified gestational age , Encounter for supervision of normal first in first trimester Take 1 tablet by mouth Daily 30 tablet 11 05/01/2025 05/01/2026 Active SUMAtriptan 100 mg oral tablet (10 sources)Serotonin-1b and Serotonin-1d Receptor AgonistStart: 55-82-0010jnvk 1 mg by mouth onceImitrex 100 mg Tab mg tab(s), Oral, Once, Refills(s) 0 Start Date: 02/02/21 Status: Ordered Repeat number: 1Surgical Lubricant Jelly gel (12 sources)Start: 06-65-8562Tqxsedaw Lubricant Jelly gel For MRI Female Pelvis, MRI department to provide. Administer intra-vaginal Surgilube immediately prior the MRI procedure (total amount to patient toleranace). 1 g 0 05/17/2023 Active Comment on above:For MRI Female Pelvis, MRI department to provide. Administer intra-vaginal Surgilube immediately prior the MRI procedure (total amount to patient toleranace).tiZANidine 4 mg oral tablet (3 sources)Central alpha-2 Adrenergic AgonistStart: 83-61-5642edah 1 mg by mouth every eight hourstiZANidine 4 mg Tab mg tab(s), Oral, q8hr, Refills(s) 0 Start Date: 02/02/21 Status: OrderedtraMADol hydrochloride 50 mg oral tablet (10 sources)Opioid AgonistStart: 77-09-0657jexd 1 tablet by mouth every four hours as needed for paintraMADol (ULTRAM) 50 mg tablet Indications: Pelvic pain in female Take 1 tablet by mouth every 4 hours as needed for pain. 20 tablet 0 08/30/2023 ActiveStart: 02-70-4825tmvv 1 tablet by mouth every six hourstraMADol HCl - 50 MG Oral Tablet TAKE 1 TABLET Every 6 hours Quantity: 20 Refills: 0 Ordered: 18-Aug-2020 Charlene Rodriguez DO Start : 18-Aug-2020 ActiveStart: 03-12-2019 End: 38-32-7211cniw 1 tablet by mouth every four hours as needed for pain Tramadol 50 mg tablet Discontinued 50 MG PO Q4H as needed for pain 30 5 March 12, 2019 12:00am August 04, 2019 8:19amComment on above:Take 1 tablet by mouth every 4 hours as needed for pain.Vitamin D2 2000 intl units oral capsule (9 sources)Start: 80-58-8290zacx 1 capsule by mouth once dailyVitamin D2 2000 intl units oral capsule Oral, Daily, Refills(s) 0 Start Date: 02/02/21 Status: Ordered Repeat number: 1Start: 35-17-8496Hjlfzrm D2 2000 intl units oral capsule Oral, Daily, Refills(s) 0 Start Date: 02/02/21 Status: Ordered Completed/Discontinued Medications MedicationDrug Class(es)DatesSig (Normalized)Sig (Original)acetaminophen 325 mg oral tablet (4 sources)Start: 11-30-2022 End: 40-30-3346psnf 1 tablet by mouth every six hours as needed for sxbg433 mg, Oral, Every 6 hours PRN, mild pain (1-3), Starting on Constance 11/30/22 at 0422 Give in addition to any other pain medication ordered at same time for any pain indication. Maximumdose of acetaminophen is 4000 mg from all sources in 24 hours. Alternate ibuprofen and acetaminophen every 3 hours.Start: 11-28-2022 End: 09-06-5743aywrhzoeafvom (Tylenol) tablet 1,000 mgacetaminophen 300 mg / codeine phosphate 30 mg oral tablet (4 sources)Opioid AgonistStart: 01-19-2025 End: 71-83-2263hlit 1 tablet by mouth every six hours for painacetaminophen- codeine (Tylenol w/ Codeine #3) 300-30 MG tablet Indications: Pain in female genitalia on intercourse , Endometriosis Take 1 tablet by mouth every 6 (six) hours if needed for severe pain for up to 5 days 20 tablet 01/19/2025 01/24/2025 ExpiredStart: 07-22-2024 End: 33-73-8509myvj 1 tablet by mouth every six hours for painacetaminophen- codeine (Tylenol w/ Codeine #3) 300-30 MG tablet Indications: Dysmenorrhea, unspecified Take 1 tablet by mouth every 6 (six) hours if needed for severe pain for up to 5 days 20 tablet 07/22/2024 07/27/2024 Activeascorbic acid 500 mg oral tablet (5 sources)Vitamin CStart: 10-25-2018 End: 78-38-3186crey 2 tablets by mouth in the morningASCORBIC ACID WITH ISAURO HIPS 500 MG tablet Take 2 tablets (1,000 mg total) by mouth in the morning.0 10/25/2018 09/04/2025 Discontinued ()aspirin 325 mg / butalbital 50 mg / caffeine 40 mg oral capsule (11 sources)Platelet Aggregation Inhibitor, Barbiturate, Nonsteroidal Anti- inflammatory Drug, Central Nervous System Stimulant, Methylxanthine End: 15-36-0685jcrk 1 capsule by mouth every four hours as needed qweqztbpxr-bkryypm-osxagmoc (Fiorinal) 50-325-40 MG capsule Take 1 capsule [...] spray (2 sources)Standardized Chemical AllergenStart: 11-30-2022 End: 27-86-3494Dbulpim, As needed, pain, , Starting on Constance 11/30/22 at 0608, Apply to perineal area. Patient is capable and may self administer at bedside.betamethasone 3 mg/ml / betamethasone acetate 3 mg/ml injectable suspension (2 sources)CorticosteroidStart: 11-28-2022 End: 26-96-3487jccqdqwqetmcb acetate-betamethasone sodium phosphate (Celestone) injection 12 mgcalcium chloride 0.0014 meq/ml / potassium chloride 0.004 meq/ml / sodium chloride 0.103 meq/ml / sodium lactate 0.028 meq/ml injectable solution (2 sources)Start: 11-28-2022 End: 79-11-7449unpl 125 mL intravenously every deas813 mL/hr, IntraVENous, Continuous, Starting on Sun11/28/22 at 0100, Pre-Deliverycetirizine hydrochloride 10 mg oral tablet (17 sources)Histamine-1 Receptor AntagonistStart: 06-09-2025 End: 35-00-5861rzip 1 tablet by mouth once dailycetirizine (ZyrTEC ALLERGY) 10 MG tablet Indications: Allergy, sequela Take 1 tablet (10 mg) by mouth Daily 30 tablet 11 06/09/2025 07/15/2025 DiscontinuedchlordiazePOXIDE hydrochloride 5 mg / clidinium bromide 2.5 mg oral capsule (1 source)Anticholinergic, BenzodiazepineStart: 47-71-2131nqkj 1 capsule by mouth every eight hourschlordiazePOXIDE-Clidinium 5-2.5 MG 1 capsule before meals Orally Three times a day for 30 day(s) May, Not-Taking chlorhexidine gluconate 20 mg/ml medicated pad (2 sources)Start: 11-28-2022 End: 77-12-0243ieklr 1 dose topically every six hoursTopical, Every 6 hours, First dose on Sun11/28/22 at 0100, Pre-Delivery Apply to the affected area.&a mp;nbsp; Clean entire abdomen.cholecalciferol 0.125 mg oral capsule (5 sources)Vitamin DStart: 10-25-2018 End: 56-49-3519fxsh 1 capsule by mouth in the morningcholecalciferol, vitamin D3, (VITAMIN D3) 5,000 units capsule Take 1 capsule (5,000 Units total) bymouth in the morning. 0 10/25/2018 09/04/2025 Discontinued ()desogestrel 0.15 mg / ethinyl estradiol 0.03 mg oral tablet (11 sources)Progestin, EstrogenStart: 07-22-2024 End: 77-99-2954hraqtikqdum-ethinyl estradiol (Apri) 0.15-30 MG-MCG tablet Indications: Dysmenorrhea, unspecified Take 1 tablet by mouth Daily 21 tablet 12 10/20/2024 01/19/2025 Discontinued (Other)diphenhydrAMINE (BENADryl) injection 25 mg (2 sources)Start: 11-30-2022 End: 03-17-5471llvk 25 mg intravenously every six hours as neededdiphenhydrAMINE (BENADryl) injection 25 mgNorethindrone-E.Estradiol-Iron (1 source)EstrogenStart: 10-17-2017 End: 85-55-4446gcnt 1 tablet by mouth once dailyNorethindrone-E.Estradiol-Iron (Lo Loestrin Fe) 1 mg-10 mcg (24)/10 mcg (2) tablet Discontinued 1 TAB PO Daily October 17, 2017 1:00am March 12, 2019 6:15amEthinyl Estradiol / Norethindrone (7 sources)EstrogenStart: 12-01-2018 End: 79-54-3136ydvn 0.05 ug by mouth once in the eveningnorethindrone ac-eth estradiol (MICROGESTIN 1/20) 1-20 mg-mcg per tablet Take 1 tablet by mouth in t he evening. 0 12/01/2018 09/04/2025 Discontinued ()Start: 12-01-2018 take 0.05 ug by mouth once in the eveningnorethindrone ac-eth estradiol (MICROGESTIN 1/20) 1-20 mg-mcg per tablet Take 1 tablet by mouth in the evening. 0 12/01/2018 ActiveStart: 13-40-1929omsp 1 tablet by mouth once dailyDasetta oral tablet 1 tab(s), Oral, Daily, Refill(s) 0, control/menstrual regulation Start Date: 11/23/16 Status: Orderedfamotidine 20 mg oral tablet (2 sources)Histamine-2 Receptor AntagonistStart: 11-30-2022 End: 84-62-8837agzq 20 mg by mouth twice daily as needed for gastroesophageal reflux mg, Oral, 2 times daily PRN, heartburn, Starting on Constance 11/30/22 at 0608, Renal dose per pharmacy for peptic ulcer prophylaxis.ferrous sulfate 325 mg oral tablet (8 sources)Start: 11-30-2022 End: 77-15-9971phgu 325 mg by mouth twice daily at giwlulfh613 mg, Oral, 2 times daily with meals, First dose on Constance 11/30/22 at 0800, Start if Hgb le ss than 10. End: 52-89-6651ujvt 1 tablet by mouth in the morningFerrous Sulfate (IRON PO) Take 1 tablet by mouth in the morning. 09/16/2025 Discontinuedtake 1 tablet by mouth in the morningFerrous Sulfate (IRON PO) Take 1 tablet by mouth in the morning. ActiveFLUoxetine 20 mg oral capsule (17 sources)Serotonin Reuptake InhibitorStart: 14-84-8466siel 1 capsule by mouth once dailyFLUoxetine HCl - 20 MG Oral Capsule TAKE 1 CAPSULE Daily Quantity: 30 Refills: 11 Ordered: 02-Jun-2021 Kuldip DAY Charlene Start : 02-Jun-2021 Active Start: 11-02-2018 End: 99-33-8906uqzw 1 capsule by mouth once dailyFluoxetine (Prozac) 20 mg capsule Discontinued 20 MG PO Daily November 02, 2018 1:00am August 04, 2019 8:19amtake 1 capsule by mouth once dailyFLUoxetine (PROZAC) 10 mg capsule Take 10 mg by mouth once daily. 0 ActiveComment on above:Take 10 mg by mouth once daily.fluticasone propionate 0.05 mg/actuat metered dose nasal spray (16 sources)CorticosteroidStart: 06-22-2025 End: 35-48-8231xguk 1 spray(s) nasal route once dailyfluticasone (Flonase) 50 MCG/ACT nasal spray Indications: Sinusitis, unspecified chronicity, unspecified location Administer 1 spray into each nostril Daily Shake gently. Before first use, prime pump. After use, clean tip and replace cap. 16 g 12 06/22/2025 07/15/2025 Discontinued End: 11-55-2076zwot 1 spray(s) nasal route in the morningfluticasone (Flonase) 50 MCG/ACT nasal spray Administer 1 spray into affected nostril(s) in the morn ing. 09/16/2025 Discontinued End: 68-75-5499lpwu 1 spray(s) nasal route in the morningfluticasone propionate (FLONASE) 50 mcg/actuation nasal spray Administer 1 spray into each nostril in the morning. 09/04/2025 Discontinued ()lanolin 1000 mg/ml topical cream (2 sources)Start: 11-30-2022 End: 90-41-9321Vstvytv, As needed, dry skin, nipple discomfort, Starting on Sun11/30/22 at 0608, Apply to affected area.500 ml magnesium sulfate 40 mg/ml injection (4 sources)Start: 11-28-2022 End: 28-54-7743rieapaitl sulfate 20 GM/500ML infusionStart: 11-28-2022 End: 37-16-7163vjnawlcel sulfate 20 GM/500ML infusion - Pyxis ADS Override Pull metoclopramide 10 mg oral tablet (2 sources)Dopamine-2 Receptor AntagonistStart: 33-96-0787fuoq 1 tablet by mouth every eight hoursReglan 10 MG 1 tablet before meals Orally tid for 30 day(s) March, Not-TakingmiSOPROStol 0.2 mg oral tablet (2 sources)Prostaglandin E1 AnalogStart: 11-30-2022 End: 09-00-0413hsMLZQUTevg (Cytotec) tablet 1,000 mcgStart: 11-30-2022 End: 80-99-5188zqOKJEQHnqk (Cytotec) tablet 1,000 mcgmiSOPROStol (Cytotec) split tablet 25 mcg (2 sources)Start: 11-28-2022 End: 27-22-4111rora 1 tablet vaginal route every four hoursmiSOPROStol (Cytotec) split tablet 25 mcg1 ml morphine sulfate 4 mg/ml injection (4 sources)Opioid AgonistStart: 11-28-2022 End: 76-69-2368najmxvds sulfate (PF) injection 4 mgnitrofurantoin, macrocrystals 25 mg / nitrofurantoin, monohydrate 75 mg oral capsule (6 sources)Nitrofuran AntibacterialStart: 22-30-5945Ityeubxdbordby Monohyd Macro 100 MG Oral Capsule TAKE 1 CAPSULE Other Please take one capsule aftersexual intercourse to prevent UTI Quantity: 30 Refills: 11 Ordered: 01-Apr-2021 Teri Chau MD Start : 01-Apr-2021 Active2 ml ondansetron 2 mg/ml injection (12 sources)Serotonin-3 Receptor AntagonistStart: 11-29-2022 End: 21-63-5583rhhd 4 mg intravenously every six hours as needed for nausea and vomitingondansetron (Zofran) injection 4 mgStart: 30-53-2734nmwo 1 tablet by mouth every six hours as needed for nauseaZofran 4 mg Tab 1 tab(s), Oral, q6hr, PRN Nausea, # 8, Refills(s) 0 Start Date: 07/14/22 Status: Ordered Quantity: 8.0 Unit: Repeat number: 1Start: 63-58-6618ptyl 1 tablet by mouth three times daily Zofran 4 MG 1 tablet Orally THREE TIMES A DAY for 30 day(s) May, Not-Takingondansetron ODT (Zofran-ODT) disintegrating tablet 4 mg (2 sources)Start: 11-30-2022 End: 80-05-4977aang 1 tablet by mouth every eight hours [...] for 1 hour. Then discontinue.Start: 11-29-2022 End: 18-34-5463crhvbqty (Pitocin) 30 units in 500 mL infusionStart: 11-29-2022 End: 06-58-8466utmkqnbs (Pitocin) 30 units in 500 mL infusionphenazopyridine hydrochloride 200 mg oral tablet (10 sources)Start: 82-68-5140lumm 1 tablet by mouth three times dailyPyridium 200 mg Tab 200 mg = 1 tab(s), Oral, TID, Take one tab by mouth three times a day for threedays, # 9 tab(s), Refills(s) 0, Pharmacy: [facility], 157, cm, 03/04/21 7:22:00 EDT, Height/Length Dosing, 52, kg, 03/04/21 7:22:00 EDT, Weight Dosing Start Date: 03/04/21 Status: Ordered Quantity: 9.0 Unit: tab(s) Repeat number: 1predniSONE 10 mg oral tablet (3 sources)Start: 09-10-2023 End: 22-95-9904ufid 2 tablets by mouth twice daily, then [...] 09/10/2023 01/10/2024 Discontinued (Therapy completed)Start: 03-12-2019 End: 37-28-8787guow 3 tablets by mouth once daily at mealtimePrednisone 20 mg tablet Discontinued 60 MG PO Daily 9 March 12, 2019 12:00am August 04, 2019 8:18am administer with food or milkpromethazine hydrochloride 12.5 mg oral tablet (13 sources)PhenothiazineStart: 05-25-2025 End: 15-24-0915rtsg 1 tablet by mouth every six hours [...] nausea. 30 tablet 2 508/ Discontinued End: 66-57-0719pmtw 12.5 mg rectal route every six hours as needed for nausea and vomitingpromethazine (PHENERGAN) 12.5 mg suppository Insert 1 suppository (12.5 mg total) into the rectum every 6 (six) hours as needed for nausea or vomiting. 09/04/2025 Discontinued ()rizatriptan 5 mg disintegrating oral tablet (5 sources)Serotonin-1b and Serotonin-1d Receptor AgonistStart: 10-24-2018 End: 80-03-6119ljptuefutit EPILEPSY PHYSICIAN (MAXALT-EPILEPSY PHYSICIAN) 5 mg disintegrating tablet Dissolve 1 tablet (5 mg total) on tongue asneeded. 0 10/24/2018 09/04/2025 Discontinued ()5 ml sodium chloride 9 mg/ml injection (2 sources)Start: 11-28-2022 End: mL, IntraVENous, Every 12 hours scheduled (2 times per day), First dose on Sun11/28/22 at 0900, Pre-Deliveryvitamin b12 1 mg extended release oral tablet (5 sources)Vitamin B04Jodlx: 10-25-2018 End: 36-57-0858cptw 1 tablet by mouth in the morningcyanocobalamin, vitamin B- 12, (VITAMIN B-12) 1,000 mcg tablet extended release Take 1 tablet (1 mg total) by mouth in the morning. 0 10/25/2018 09/04/2025 Discontinued ()witch yesi 500 mg/ml medicated pad (2 sources)Start: 11-30-2022 End: 50-60-1570Mktfdbf, As needed, hemorrhoids, For perineal pain or discomfort, Starting on Sun11/30/22 at 0608, Apply to perineal area. Patient is capable and may self administer at bedside. Problems Active Problems Problem ClassificationProblemDateDocumented DateEpisodic/ChronicAllergic reactions (1 source)Allergic reaction; Translations: [Allergy, unspecified, initial encounter]32-38-9699UtkrrfheOacnvyo on above:Problem List clean-up per request of Phys. EHR CmteAnxiety disorders (20 sources)Anxiety; Translations: [Anxiety state, unspecified]Onset: 10-08-2020 69-51-2398GtiabhqUpndikv on above:Problem List clean-up per request of Phys. EHR CmteCardiac dysrhythmias (20 sources)Paroxysmal tachycardia; Translations: [Paroxysmal tachycardia, unspecified]Onset: 334854-76-5144JauaxmxStvcorlenxwso of surgical procedures or medical care (1 source)Postoperative retention of urine; Translations: [Other postprocedural complications and disorders of genitourinary system]98-80-1690CaxyqcalDjjhhbt on above:Problem List clean-up per request of Phys. EHR CmteDiabetes mellitus without complication (2 sources)Abnormal glucose tolerance test; Translations: [Other abnormal glucose]52-80-3440XwebjslnYpfwlphg or abnormal glucose tolerance complicating ; childbirth; or the puerperium (20 sources)Gestational diabetes mellitus; Translations: [Gestational diabetes mellitus in , diet controlled]Onset: 302482-13-9789Hbekgsmk Endometriosis (20 sources)Endometriosis (clinical); Translations: [Endometriosis, site unspecified]Onset: 25-01-1881FjjykbqTgvojfnrj hypertension (20 sources)Hypertensive disorder; Translations: [Essential (primary) hypertension]Onset: 700693-25-2592WpjonlmFpzzfdshtaiwd symptoms and ill- defined conditions (20 sources)Microscopic hematuria; Translations: [Nocturia]33-05-2751Yjsecmhb Comment on above:Problem List clean-up per request of Phys. EHR CmteHeadache; including migraine (20 sources)Migraine; Translations: [Migraine, unspecified, not intractable, without status migrainosus]Onset: 336330-13-0971LhwbmztLxbbwyq on above: Problem List clean-up per request of Phys. EHR CmteHeadache; including migraine (14 sources)Headache; Translations: [Headache, unspecified]Onset: 01-31-2023 76-37-4532KaqxirstMnoweohpunw (1 source)Hemorrhoids; Translations: [Unspecified hemorrhoids]Onset: 07-14-2022 EpisodicHypertension complicating ; childbirth and the puerperium (20 sources)Hypertension complicating ; Translations: [Unspecified maternal hypertension, unspecified trimester]Onset: hronic Hypertension complicating ; childbirth and the puerperium (16 sources)Severe pre-eclampsia complicating childbirth; Translations: [Severe pre-eclampsia, third trimester]Onset: 06-66-9216IkkdkxsjKhbjy disorders and dislocations; trauma-related (20 sources)Disorder of left patellofemoral joint; Translations: [Patellofemoral disorders, left knee]Onset: 665546-68-7708EjkvnwfTqlpt disorders and dislocations; trauma-related (20 sources)Disorder of right patellofemoral joint; Translations: [Patellofemoral disorders, right knee]Onset: hronic Menstrual disorders (20 sources)Dysmenorrhea; Translations: [Dysmenorrhea, unspecified]Onset: 419393-19-6454EmhlmkiZydncf and vomiting (1 source)Nausea and vomiting; Translations: [Nausea with vomiting, unspecified] EpisodicNonspecific chest pain (2 sources)Chest pain; Translations: [Chest pain, unspecified]31-70-2850Uxsvoyxw Comment on above:Problem List clean-up per request of Phys. MIKAYLA CmteNutritional deficiencies (20 sources)Vitamin D deficiency; Translations: [Vitamin D deficiency, unspecified]Onset: 973770-47-9043NsrsfxuHmwfc acquired deformities (20 sources)Scoliosis deformity of spine; Translations: [Scoliosis, unspecified] Onset: 422966-37-1330BxitnyyPkrwf bone disease and musculoskeletal deformities (10 sources)Disorder of wgxh48-60-3990OzneuthxYykonxa on above:right shoulder right shoulderOther circulatory disease (1 source)Elevated blood-pressure reading without diagnosis of hypertension; Translations: [Elevated blood-pressure reading, without diagnosis of hypertension]Onset: 45-00-4676BgxlwggcZgxfg complications of ; puerperium affecting management of mother (1 source)Delayed AND/OR secondary hemorrhage; Translations: [Delayed and secondary hemorrhage]Onset: 19-31-7957LmlpgkjoKmehm complications of (1 source)Finding related to ; Translations: [Other specified related conditions, unspecified trimester]Onset: 99-78-8407XnmllewjEgkoy complications of (1 source)Supervision of with other poor reproductive or obstetric history, unspecified trimester; Translations: [Supervision of with other poor reproductive or obstetric history, unspecified trimester]Onset: 41-25-1854HodfrjaeXdfbm connective tissue disease (1 source)Diastasis recti; Translations: [Separation of muscle (nontraumatic), other site]EpisodicOther female genital disorders (10 sources)Abnormal uterine nctfpubv70-22-7227IpqoqmvHlabf female genital disorders (1 source)Dyspareunia; Translations: [Other specified dyspareunia]ChronicOther female genital disorders (20 sources)Pain in female genitalia on intercourse; Translations: [Unspecified dyspareunia]Onset: 462805-83-6197QrvmkrcYctnt female genital disorders (1 source)Unspecified dyspareunia; Translations: [Unspecified dyspareunia]Onset: 87-16-0907AtuioqcTktpi female genital disorders (2 sources)Pelvic floor dysfunction; Translations: [Other specified conditions associated with female genital organs and menstrual cycle]EpisodicOther gastrointestinal disorders (18 sources)Constipation; Translations: [Constipation, unspecified]Onset: 577603-48-4504NtvzqhpwSxoywmu on above:Problem List clean-up per request of Phys. EHR CmteOther gastrointestinal disorders (1 source)Constipation, unspecified; Translations: [Constipation, unspecified] Onset: 12-68-7214BrtuddctXwdlk hereditary and degenerative nervous system conditions (20 sources)Finding of scapular structure; Translations: [Other specified extrapyramidal and movement disorders]Onset: 323388-90-5235KgbmiluQwfki nervous system disorders (9 sources)Chronic pain; Translations: [Other chronic pain]Onset: 03-29-2023 93-96-3746XlfiwdgMqvip nervous system disorders (1 source)Other chronic pain; Translations: [Chronic pelvic pain in female] Onset: 55-27-3558JskbkoaUrswh nervous system disorders (1 source)Paresthesia of left upper limb; Translations: [Paresthesia of skin] 61-11-1565WvztryouBxdqffq on above:Problem List clean-up per request of Phys. EHR CmteOther nervous system disorders (1 source)Tremor; Translations: [Tremor, unspecified]48-01-3620EwunvugiSjwqlte on above:Problem List clean-up per request of Phys. EHR CmteOther nutritional; endocrine; and metabolic disorders (20 sources)Body mass index 30+ - obesity; Translations: [Obesity, unspecified] Onset: 400410-12-8979QjsipaaDumup and delivery including normal (18 sources); Translations: [Encounter for supervision of normal , unspecified, unspecified trimester]90-10-6543LmgmoykiVqvof screening for suspected conditions (not mental disorders or infectious disease) (8 sources)Elevated liver enzymes level; Translations: [Other specified abnormal findings of blood chemistry]Onset: 04-18-2022 Resolved: 22-30-5616EnfmkxanIysoq upper respiratory disease (20 sources)Allergic rhinitis due to pollen; Translations: [Allergic rhinitis due to pollen]Onset: 058053-60-3482LqvedtqGaghb upper respiratory infections (2 sources)Sinusitis; Translations: [Chronic sinusitis, unspecified]06-22-2025 ChronicResidual codes; unclassified (2 sources)Contraception ; Translations: [Other specified health status] 52-63-9528CabzrdbsQvyiimxc codes; unclassified (2 sources)Gestation period, 13 weeks; Translations: [13 weeks gestation of ]99-45-9861UhfxiqbeXmippxaa codes; unclassified (2 sources)Gestation period, 17 weeks; Translations: [17 weeks gestation of ]87-44-3374ZacpvwlnRfuebtfh codes; unclassified (2 sources)Gestation period, 20 weeks; Translations: [20 weeks gestation of ]11-99-4202KhmxlndpJtdrppsn codes; unclassified (2 sources)Gestation period, 24 weeks; Translations: [24 weeks gestation of ]22-90-4093IgxguntlQjoumwlo codes; unclassified (2 sources)Gestation period, 26 weeks; Translations: [26 weeks gestation of ]77-08-9579ZaifylzyMfvzwqnq codes; unclassified (2 sources)Gestation period, 27 weeks; Translations: [27 weeks gestation of ]76-58-1706VszksxekTcvxagyi codes; unclassified (1 source)Gestation period, 28 weeks; Translations: [28 weeks gestation of ]31-19-5073WlmcrsivWvfnaiak codes; unclassified (1 source)28 weeks gestation of ; Translations: [28 weeks gestation of ]Onset: 66-52-3246BykkueobOggjrbub codes; unclassified (2 sources)Gestation period, 29 weeks; Translations: [29 weeks gestation of ]87-79-0038RhavewgrZzuxiaec codes; unclassified (2 sources)Gestation period, 31 weeks; Translations: [31 weeks gestation of ]23-26-7796IhslzowuCrfijlyjvvi; intervertebral disc disorders; other back problems (20 sources)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; Translations: [Other cervical disc displacement, unspecified cervical region] Onset: 211781-23-2312VznxqxxDqemzlaqinto (1 source)MFM consultOnset: 25-84-8416Eisiempwkjcp (1 source)Gestational DiabetesOnset: 63-62-2214Pjozmzn tract infections (20 sources)Recurrent urinary tract infection; Translations: [Urinary tract infection, site not specified]Onset: 781795-95-9865Gstnjqhr Past or Other Problems Problem ClassificationProblemDateDocumented DateEpisodic/ChronicAbdominal pain (20 sources)Epigastric pain; Translations: [Epigastric pain]Onset: 07-14-2022 EpisodicAcquired foot deformities (20 sources)Acquired equinus deformity of foot; Translations: [Other acquired deformities of unspecified foot]Onset: 818874-83-5048ZcwwbbtgIncqvlu dysrhythmias (20 sources)Tachycardia; Translations: [Tachycardia, unspecified]Onset: 201586-20-8566YeajgsqsKtxuuhpxuye deficiencies (20 sources)Cobalamin deficiency; Translations: [Deficiency of other specified B group vitamins]Onset: 163861-83-7311IzlzcxhpAphjh connective tissue disease (20 sources)Posterior calcaneal exostosis; Translations: [Calcaneal spur, unspecified foot]Onset: 319073-10-1523VkvechunXjzke disorders of stomach and duodenum (20 sources)Gastroparesis syndrome; Translations: [Gastroparesis]Onset: 137139-89-4954XtflkpwoKpclg female genital disorders (1 source)Other specified conditions associated with female genital organs and menstrual cycle; Translations:[High-tone pelvic floor dysfunction]Onset: 26-95-9548QtbkzkscOowtg female genital disorders (20 sources)Chronic pelvic pain of female; Translations: [Chronic pelvic pain in female]Onset: 201487-44-9706DrhhonarKtbbv gastrointestinal disorders (20 sources)Swallowing painful; Translations: [Dysphagia, unspecified]Onset: 216531-73-4913YycklzrbRyssl gastrointestinal disorders (20 sources)Diarrhea; Translations: [Diarrhea, unspecified]Onset: 03-24-2025 40-18-0549DolrtlcjWmdvt non-traumatic joint disorders (20 sources)Chronic pain of right upper limb; Translations: [Pain in right shoulder]Onset: 596216-07-2322QqnheyhiAhmec nutritional; endocrine; and metabolic disorders (16 sources)Loss of appetite; Translations: [Anorexia]Onset: 05-27-2020 07-76-2005LddiwxhoAuzsyxz (15 sources)Vasovagal syncope; Translations: [Syncope and collapse]Onset: 621619-84-3944HgoiswepUgcuonqiihik (9 sources)PregnancyOnset: 07-14-2022 Resolved: 556171-84-2032MQGNHRE: Highlighted row has been ruled out! Unclassified (1 source)No known active cizanptg75-20-5334 Results Test NameValueInterpretationReference RangeFacilityUS OB BPP W NON-STRESS on 26-88-9622[place] [address] Ultrasound Report Signed Patient: JUHI GAMA MR#: [id number] : 1995 Acct:[id number] Age/Sex: 30 / F ADM Date: 10/03/25 Loc: US Attending Dr: Steph Keane Ordering Physician: Steph Keane Date of Service: 10/03/25 Procedure(s): US OB BPP w non-stress Accession Number(s): [id number] cc: Steph Keane; KAFTAN,G KENNETH The [address] [address] Patient Name: JUHI GAMA MRN: [facility]:[id number] date: 1995 Sex: F Assigned Patient Location: US Current Patient Location: Accession/Order Number: [id number] Exam Date: 10/03/2025 10:53 Report Date: 10/03/2025 [...] 10/03/2025 11:36 AM Dictation Location: [place] [address] Electronically authenticated by: [id number] Y Date: 10/03/2025 11:36 Dictated By: Will Faria M.D. Signed By: 10/03/25 1138 DD/ 1136 TD/TT: Music Librarian:TBHRadiology, Radiologist, MD - 10/03/2025 [place] [address] Ultrasound Report Signed Patient: JUHI GAMA MR#: [id number] : 1995 Acct:[id number] Age/Sex: 30 / F ADM Date: 10/03/25 Loc: US Attending Dr: Steph Keane Ordering Physician: Steph Keane Date of Service: 10/03/25 Procedure(s): US OB BPP w non-stress Accession Number(s): [id number] cc: Steph Keane; Yomaira BELTRAN [place] [id number] Patient Name: JUHI GAMA MRN: [id number] date: 1995 Sex: F Assigned Patient Location: US Current Patient Location: Accession/Order Number: [id number] Exam Date: 10/03/2025 10:53 Report Date: 10/03/2025 [...] 10/03/2025 11:36 AM Dictation Location: [place] [address] Electronically authenticated by: [id number] Y Date: 10/03/2025 11:36 Dictated By: Will Faria M.D. Signed By: 10/03/25 1138 DD/ 1136 TD/TT: Music Librarian: [facility] HealthcareRadiology Study observation (narrative)N[facility] HealthcareUS OB BPP W NON-STRESSOrdered By: Radiologist Radiology on 56-03-8416[facility] Work Phone: Urinalysis macro (dipstick) panel (U)on 09-30-2025 Bilirubin, UANegativeNegative - 4(70) +++ mg/dLNOMS HealthcareBlood, UANegative Negative - 50 Teodoro/mcLNOMS HealthcareClarity, UAClearNOMS HealthcareColor, UA YellowNOPR HealthcareGlucose, UANegativeNegative - 2000(110) ++++ mg/dLNOPR HealthcareInterpretation and review of laboratory resultsNormalNOLee[facility] Ketones, UANegativeNegative - 160(16) ++++ mg/dLNOPR HealthcareLeukocytes, UA NegativeNegative - 500+++ Robinson/mcLNOPR HealthcareNitrite, UANegativeNegative - PositiveNOPR HealthcarepH, UA6.05 - 9NOPR HealthcareProtein, UANegativeNegative - 2000(20) ++++ mg/dLNOPR HealthcareSpec Grav, UA1.0101 - 1.03NOPR Healthcare Urobilinogen, UA1.00.2 - 12 mg/dLNOCedar County Memorial Hospital HealthcareUS OB BPP W NON-STRESSon 80-27-9869Fww[place] [address] Ultrasound Report Signed Patient: JUHI GAMA MR#: [id number] : 1995 Acct:[id number] Age/Sex: 30 / F ADM Date: 09/26/25 Loc: US Attending Dr: Steph Keane Ordering Physician: Steph Keane Date of Service: 09/26/25 Procedure(s): US OB BPP w non-stress Accession Number(s): [id number] cc: Steph Keane; Yomaira BELTRAN [place] [id number] Patient Name: JUHI GAMA MRN: [id number]:[id number] date: 1995 Sex: F Assigned Patient Location: Current Patient Location: Accession/Order Number: [id number] Exam Date: 09/26/2025 11:50 Report Date: 09/26/2025 14:50 At the request of: STEPH KEANE Procedure: US OB BPP w non-stress Ultrasound biophysical profile INDICATION: -induced hypertension COMPARISON: 09/19/2025 FINDINGS IMPRESSION: Cephalic position. 8 out of 8 score biophysical profile. LEONEL 11.6 cm. heart 129 bpm Impression dictated by: Chu Amaya M.D. 09/26/2025 2:50 PM Dictation Location: [facility]-29 Electronically authenticated by: [id number] Y Date: 09/26/2025 14:50 Dictated By: Chu Amaya M.D. Signed By: 09/26/25 1452 DD/ 49 TD/TT: Music Librarian:TBHRadiology, Radiologist, - 09/26/2025 [place] [address] Ultrasound Report Signed Patient: JUHI GAMA MR#: [id number] : 1995 Acct:[id number] Age/Sex: 30 / F ADM Date: 09/26/25 Loc: US Attending Dr: Steph Keane Ordering Physician: Steph Keane Date of Service: 09/26/25 Procedure(s): US OB BPP w non-stress Accession Number(s): [id number] cc: Le Keane G ROBERT [place] [address] Patient Name: JUHI GAMA MRN: [facility]:[id number] date: 1995 Sex: F Assigned Patient Location: Current Patient Location: Accession/Order Number: [id number] Exam Date: 09/26/2025 11:50 Report Date: 09/26/2025 14:50 At the request of: STEPH KEANE Procedure: US OB BPP w non-stress Ultrasound biophysical profile INDICATION: -induced hypertension COMPARISON: 09/19/2025 FINDINGS IMPRESSION: Cephalic position. 8 out of 8 score biophysical profile. LEONEL 11.6 cm. heart 129 bpm Impression dictated by: Chu Amaya M.D. 09/26/2025 2:50 PM Dictation Location: RADIO-PC-29 Electronically authenticated by: [id number] Y Date: 09/26/2025 14:50 Dictated By: Chu Amaya M.D. Signed By: 09/26/25 145 DD/ 145 TD/TT: Music Librarian: LANETTE HealthcareRadiology Study observation (narrative)NOM[facility] HealthcareUS OB BPP W NON-STRESSOrdered By: Radiologist Radiology on 25-64-1198WTZX Healthcare Work Phone: US OB BPP W NON-STRESSon [phone] [address] Ultrasound Report Signed Patient: JUHI GAMA MR#: [id number] : 1995 Acct:[id number] Age/Sex: 30 / F ADM Date: 09/19/25 Loc: US Attending Dr: Steph Keane Ordering Physician: Steph Keane Date of Service: 09/19/25 Procedure(s): US OB BPP w non-stress Accession Number(s): [id number] cc: Steph Keane; Yomaira BELTRAN [place] [id number] Patient Name: JUHI GAMA MRN: [id number]:[id number] date: 1995 Sex: F Assigned Patient Location: [facility] Current Patient Location: Accession/Order Number: [id number] Exam Date: 09/19/2025 10:06 Report Date: 09/19/2025 [...] Morillo M.D. 09/19/2025 12:17 PM Dictation Location: [place] Electronically authenticated by: [id number] Y Date: 09/19/2025 12:17 Dictated By: Jp Morillo D.O. Signed By: 09/19/25 1219 DD/ 16 TD/TT: Music Librarian:SATNAMadiolRandell malagon, - 09/19/2025 [place] [id number] Ultrasound Report Signed Patient: JUHI GAMA MR#: [id number] : 1995 Acct:[id number] Age/Sex: 30 / F ADM Date: 09/19/25 Loc: US Attending Dr: Steph Keane Ordering Physician: Steph Keane Date of Service: 09/19/25 Procedure(s): US OB BPP w non-stress Accession Number(s): [id number] cc: Steph Keane; Yomaira BELTRAN [place] [id number] Patient Name: JUHI GAMA MRN: [facility]:[id number] date: 1995 Sex: F Assigned Patient Location: [facility] Current Patient Location: Accession/Order Number: [id number] Exam Date: 09/19/2025 10:06 Report Date: 09/19/2025 [...] Morillo M.D. 09/19/2025 12:17 PM Dictation Location: [employer] [place] Electronically authenticated by: [id number] Y Date: 09/19/2025 12:17 Dictated By: Jp Morillo D.O. Signed By: 09/19/25 1219 DD/ 16 TD/TT: Music Librarian: LANETTE HealthcareRadiology Study observation (narrative)NOMS HealthcareUS OB BPP W NON-STRESSOrdered By: Radiologist Radiology on 49-15-8434MDOJFreeman Health System Work Phone: Urinalysis macro (dipstick) panel (U)on 09-16-2025 Bilirubin, UANegativeNegative - 4(70) +++ mg/dLFreeman Health SystemBlood, UANegative Negative - 50 Teodoro/mcLFreeman Health SystemClarity, UAClearNOPR HealthcareColor, UA YellowNOLee's Summit HospitalGlucose, UANegativeNegative - 2000(110) ++++ mg/dLFreeman Health SystemInterpretation and review of laboratory resultsNormalFreeman Health System Ketones, UANegativeNegative - 160(16) ++++ mg/dLFreeman Health SystemLeukocytes, UA NegativeNegative - 500+++ Robinson/[facility] Medical CenterNitrite, UANegativeNegative - PositiveHUNTSMAN MENTAL HEALTH INSTITUTE HealthcarepH, UA6.05 - 9NOPR HealthcareProtein, UANegativeNegative - 2000(20) ++++ mg/dLFreeman Health SystemSpec Grav, UA1.0101 - 1.03[facility] Urobilinogen, UA1.00.2 - 12 mg/dLSt. Louis VA Medical Center HealthcareALL BUNon 17-82-8490Axqh nitrogen [Mass/Vol]8 mg/dL7.0 - 18.0 mg/dLSt. Louis VA Medical Center URIC ACIDon 26-73-8168Gvtmu [Mass/Vol]3.5 mg/dL2.6 - 6.0 mg/dLFreeman Health SystemCC ALT on 56-96-1484HSV [Catalytic activity/Vol]40 U/L14 - 59 U/University HospitalCCF AST on 65-29-9610AYH [Catalytic activity/Vol]24 U/L15 - 37 U/University HospitalNo Panel Informationon 22-49-3016Akymbksgevmdue and review of laboratory results AbnormalNOLee's Summit HospitalCLINISYNCNMineral Area Regional Medical CenterTB CREATININEon 09-03-2025 Creatinine [Mass/Vol]0.42 mg/dLLow0.55 - 1.02 mg/dLFreeman Health SystemGFR/1.73 sq M.predicted CKD-EPI (S/P/Bld) [Vol rate/Area]>60>=60 mL/min/1.73m 2NMineral Area Regional Medical CenterTB EGFR-NON AF IRISH>60>=60 mL/min/1.73m 2NOMS HealthcareTB URINE T PROTEIN CREAT RATIOon 20-56-8331XFRJCKBWBY URINE RANDOM<13.65Utm27.00 - 300.00 mg/dLNOPR HealthcareTOTAL PROTEIN URINE RANDOM<6.0NINF - 11.9 mg/dLHUNTSMAN MENTAL HEALTH INSTITUTE HealthcareUrinalysis macro (dipstick) panel (U)on 70-87-2458Trlayhhgq, UA NegativeNegative - 4(70) +++ mg/dLHUNTSMAN MENTAL HEALTH INSTITUTE HealthcareBlood, UANegativeNegative - 50 Teodoro/mcLHUNTSMAN MENTAL HEALTH INSTITUTE HealthcareClarity, UAClearNOPR HealthcareColor, UAYellowNOPR HealthcareGlucose, UANegativeNegative - 2000(110) ++++ mg/dLHUNTSMAN MENTAL HEALTH INSTITUTE Healthcare Interpretation and review of laboratory resultsNormalHUNTSMAN MENTAL HEALTH INSTITUTE HealthcareKetones, UA NegativeNegative - 160(16) ++++ mg/dLHUNTSMAN MENTAL HEALTH INSTITUTE HealthcareLeukocytes, UANegative Negative - 500+++ Robinson/Lexington Medical CenterNitrite, UANegativeNegative - Positive NOM HealthcarepH, UA6.55 - 9NOPR HealthcareProtein, UANegativeNegative - 2000(20) ++++ mg/dLHUNTSMAN MENTAL HEALTH INSTITUTE HealthcareSpec Grav, UA1.0051 - 1.03NOPR Healthcare Urobilinogen, UA2.00.2 - 12 mg/dLAshe Memorial HospitalTB TOTAL PROTEIN 24 HOUR URINEon 79-81-0903Jrtrcmoajsppui and review of laboratory results AbnormalNOPR HealthcareProtein (U) [Mass/Vol]22.6 mg/dLHighNINF - 11.9 mg/dLFreeman Health SystemTB TOTAL PROTEIN 24 HOUR XXQPE483.6NINFNOLee's Summit HospitalTOTAL VOLUME 24 HOUR XXSIQ471vX/24hrNOPR HealthcareCLINISYNCNINTEGRIS CANADI[facility] HealthcareALL CBC WITH AUTO DIFFon 87-03-9565WTTJWAMBV ABSOLUTE AUTO0.1NOMS HealthcareBasophils/100 WBC (Bld)0.5 %0.2 - 2.0 %NOMS HealthcareEosinophils/100 WBC (Bld)1.4 %0.9 - 7.0 % [facility] HealthcareErythrocyte distribution width (RBC) [Ratio]13 %11.0 - 15.0 %[facility] HealthcareHematocrit (Bld) [Volume fraction]34.4 %Low36.0 - 48.0 %Freeman Health SystemHemoglobin (Bld) [Mass/Vol]11.3 g/dLLow12.0 - 16.0 g/dLFreeman Health System IMMATURE GRANULOCYTES ABS AUTO0.59HighNOPR HealthcareImmature granulocytes/100 WBC (Bld)4.4 %High0.0 - 0.5 %[facility] Health SystemInterpretation and review of laboratory resultsAbnormalNOPR HealthcareLYMPHOCYTES ABSOLUTE AUTO2.4NOPR HealthcareLymphocytes/100 WBC (Bld)17.8 %Low20.5 - 60.0 %[facility] HospitalH (RBC) [Entitic mass]29.4 pg26.7 - 34.0 pgNOHeartland Behavioral Health ServicesHC (RBC) [Mass/Vol] 32.8 g/dL29.9 - 35.2 g/dLFreeman Health SystemMCV (RBC) [Entitic vol]89.4 fL81.0 - 99.0 fLFreeman Health SystemMONOCYTES ABSOLUTE AUTO1.1HighNOPR HealthcareMonocytes/100 WBC (Bld)8.1 %1.7 - 12.0 %[facility] Health SystemNEUTROPHILS ABSOLUTE WXJZ7NdrvJPBC HealthcareNeutrophils/100 WBC (Bld)67.8 %43.0 - 75.0 %[facility] Health SystemPlatelet mean volume (Bld) [Entitic vol]9.6 fL9.5 - 13.5 fLFreeman Health SystemTBH EO #0.2NOMS [facility] HospitalTB KAF929BDCF [facility] RBC3.85LowNOMS [facility] WBC13.3High Freeman Health SystemCLINISYNGrand Strand Medical CenterTB URINE T PROTEIN CREAT RATIOon 15-28-4574EFEJSWRJWT URINE RANDOM<13.36Bfw57.00 - 300.00 mg/dLFreeman Health System Interpretation and review of laboratory resultsAbnormalFreeman Health SystemTOTAL PROTEIN URINE RANDOM<6.0NINF - 11.9 mg/dLFreeman Health SystemCLINISYNGrand Strand Medical Center US OB BPP W NON-STRESSon 99-29-8444[address] [address] Ultrasound Report Signed Patient: JUHI GAMA MR#: [id number] : 1995 Acct:[id number] Age/Sex: 30 / F ADM Date: Loc: [facility] 250-[address]: KUNAL HYATT M.D. Ordering Physician: Steph Keane Date of Service: 08/27/25 Procedure(s): US OB BPP w non-stress Accession Number(s): [id number] cc: Steph Keane; Yomaira BELTRAN [place] [address] Patient Name: JUHI GAMA MRN: [facility]:[id number] date: 1995 Sex: F Assigned Patient Location: LAB Current Patient Location: LAB Accession/Order Number: [id number] Exam Date: 08/27/2025 17:37 Report Date: 08/27/2025 [...] Morillo M.D. 08/27/2025 6:02 PM Dictation Location: [place] [address] Electronically authenticated by: [id number] Y Date: 08/27/2025 18:02 Dictated By: Jp Morillo D.O. Signed By: 08/27/251804 DD/ 01 TD/TT: Music Librarian:SATNAMadiology, Radiologist, MD - 08/27/2025 [place] [address] Ultrasound Report Signed Patient: JUHI GAMA MR#: [id number] : 1995 Acct:[id number] Age/Sex: 30 / F ADM Date: Loc: [facility] 250-[address]: KUNAL HYATT M.D. Ordering Physician: Steph Keane Date of Service: 08/27/25 Procedure(s): US OB BPP w non-stress Accession Number(s): [id number] cc: Steph Keane; Yomaira BELTRAN [place] [id number] Patient Name: JUHI GAMA MRN: [facility]:[id number] date: 1995 Sex: F Assigned Patient Location: LAB Current Patient Location: LAB Accession/Order Number: [id number] Exam Date: 08/27/2025 17:37 Report Date: 08/27/2025 [...] Morillo M.D. 08/27/2025 6:02 PM Dictation Location: [place] [address] Electronically authenticated by: [id number] Y Date: 08/27/2025 18:02 Dictated By: Jp Morillo D.O. Signed By: 08/27/251804 DD/ 01 TD/TT: Music Librarian: LANETTE HealthcareRadiology Study observation (narrative)NOMShalonda SmallUS OB BPP W NON-STRESSOrdered By: Radiologist Radiology on 50-16-9385ZYZZ Healthcare Work Phone: Urinalysis macro (dipstick) panel (U)on 08-27-2025 Bilirubin, UANegativeNegative - 4(70) +++ mg/dLNOMS HealthcareBlood, UANegative Negative - 50 Teodoro/mcLNOMS HealthcareClarity, UAClearNOMS HealthcareColor, UA YellowNOMS HealthcareGlucose, UANegativeNegative - 2000(110) ++++ mg/dLNOMS HealthcareInterpretation and review of laboratory resultsNormalFreeman Health System Ketones, UANegativeNegative - 160(16) ++++ mg/dLHUNTSMAN MENTAL HEALTH INSTITUTE HealthcareLeukocytes, UA NegativeNegative - 500+++ Robinson/mcLNOPR HealthcareNitrite, UANegativeNegative - PositiveNOPR HealthcarepH, UA65 - 9NOPR HealthcareProtein, UANegativeNegative - 2000(20) ++++ mg/dLHUNTSMAN MENTAL HEALTH INSTITUTE HealthcareSpec Grav, UA1.0151 - 1.03NOPR Healthcare Urobilinogen, UA2.00.2 - 12 mg/dLNOPR HealthcareNOPR HealthcareURINE CULTURE, ROUTINEon 80-83-0434Ncxigtxe identified Cx Nom (U) Urine Culture, Routine NOMS HealthcareBacteria identified Cx Nom (U)Mixed urogenital floraNOPR HealthcareBacteria identified Cx Nom (U)25,000-50,000 colony forming units per mLNOMS HealthcareBacteria identified Cx Nom (U)Performed at: - [facility] NOMS HealthcareBacteria identified Cx Nom (U)[address] [place] [id number] HealthcareBacteria identified Cx Nom (U)Drapery Installer: Cm Sandoval PhD, Phone: [phone] HealthcareCLINISYNHOLYOKE MEDICAL CENTER Jswgswrgjl1vh hr Glucose Tolerance 100 gm loadon 44-63-9230Ymnxowz Tolerance Test 2 Tulp369 [facility] Hospital at SouthwoodsCapillary Glucose POCon 30-48-5335Opldbut [Mass/Vol]88 mg/pLBfbkcm07-41KhutibAdena Health SystemComment on above:Performed By: #### [id number] #### [facility] [address], [place] [address]Bfz 1 Hron 14-21-8130Idkdaqg [Mass/Vol]152 mg/eKMmpgml99-617 [facility] Health SystemComment on above:Performed By: #### [id number] #### [facility] [address], [place] [address]Irz 2 Hron 32-84-5560Ehdgwdt [Mass/Vol]169 mg/dYWond34-536 [facility] SystemComment on above:Performed By: #### [id number] #### [facility] [address], [place] [address]Lua 3 Hron 62-85-9754Aiyilao [Mass/Vol]141 mg/eGItrh18-280 [facility] SystemComment on above:Performed By: #### [id number] #### [facility] [address], [place] [address]Pih Fastingon 10-45-0803Cpycthi [Mass/Vol]82 mg/pTJraysd90-96 [facility] SystemComment on above:Performed By: #### [id number] #### [facility] [address], [place] [address]Ykffkiw tolerance, 1 houron 06-58-0629Hwdrvdw Tolerance Test 1 Gkmj708HlnOxwhyk Health SystemGlucose tolerance, 3 hourson 17-49-9177Ltqqybw Tolerance Test 3 Kpkn472DgoVtlnhq Health SystemGlucose, tolerance fastingon 51-46-6635Kakxwyp Tolerance Test Pqjghph70QxaQthnye Health SystemNo Panel Informationon 92-87-1684DpoRqsxwyThe Surgical Hospital at SouthwoodsCBC w/ Auto Diffon 08-12-2025 Basophil Absolute0.1 E9/LNormal0.0-0.2Fisher [facility] Finan CenterComment on above:Performed By: #### [id number] #### [facility] [address] [place] [address]Zaeitkcku/100 WBC (Bld)0.6 %Normal0.0-2.0A[facility]a Health SystemComment on above:Performed By: #### [id number] #### [facility] [address], [place] [address]Fmf Absolute0.1 E9/LNormal0.0-0.5[facility] Comment on above:Performed By: #### [id number] #### [facility] [address] [place] [address]Ientgrnbigf/100 WBC (Bld)1.0 %Normal0.0-8.0A[facility] Health SystemComment on above:Performed By: #### [id number] #### [facility] [address], [place] [address]Dhzswkfblre distribution width (RBC) [Ratio]12.9 %Normal 10.9-14.2FTogus VA Medical CenterComment on above:Performed By: #### [id number] #### [facility] [address], [place] [address]Tdzenwtovl (Bld) [Volume fraction]33.1 %Low34.0-46.0A[facility]a Health SystemComment on above:Performed By: #### [id number] #### [facility] [address], [place] [address]Lbghdsbbri (Bld) [Mass/Vol]11.4 g/dLLow12.0-16.0A[facility] Health SystemComment on above:Performed By: #### [id number] #### [facility] [address] [place] [address]Xuhqy Absolute2.0 E9/LNormal1.0-4.0[facility] Comment on above:Performed By: #### [id number] #### [facility] [address], [place] [address]Hpjlseynuxn/100 WBC (Bld)19.6 %Nrbmrq22.0-50.0[facility] Health SystemComment on above:Performed By: #### [id number] #### [facility] [address], [place] [address]TFF (RBC) [Entitic mass]29.9 rlBhcoxc04.0-34.0[facility] Health SystemComment on above:Performed By: #### [id number] #### [facility] [address], [place] [address]SSHR (RBC) [Mass/Vol]34.4 g/zXIryduv27.4-36.0[facility] Health SystemComment on above:Performed By: #### [id number] #### [facility] [address], [place] [address]HPL (RBC) [Entitic vol]86.7 rJUcszjl10.0-100.0[facility] Health SystemComment on above:Performed By: #### [id number] #### [facility] [address], [place] [address]Abec Absolute0.5 E9/LNormal0.2-1.0[facility] Comment on above:Performed By: #### [id number] #### [facility] [address], [place] [address]Zrjjqywkq/100 WBC (Bld)4.6 %Normal4.0-14.0[facility] Health SystemComment on above:Performed By: #### [id number] #### [facility] [address], [place] [address]Xcupzi Absolute7.5 E9/LNormal2.0-7.5FTogus VA Medical Center Comment on above:Performed By: #### [id number] #### [facility] [address] [place] [address]Zegdze Auto74.2 %Plamxu53.0-75.0[facility] Comment on above:Performed By: #### [id number] #### [facility] [address] [place] [address]Vtctpilm502.0 E9/XLhxrni742.0-500.0[facility] Comment on above:Performed By: #### [id number] #### [facility] [address] [place] [address]Tsbhnvic mean volume (Bld) [Entitic vol]8.1 fLNormal6.4-10.8 [facility] SystemComment on above:Performed By: #### [id number] #### [facility] [address], [place] [address]JQB8.8 E12/LLow4.3-5.9[facility] Health SystemComment on above:Performed By: #### [id number] #### [facility] [address] [place] [address]NMK75.1 E9/LNormal4.0-11.0[facility] Health SystemComment on above:Performed By: #### [id number] #### [facility] [address], [place] [address]Zkqztnxcxq 92-89-4831Igqkwxox Lvl7 ng/iAVsg41-258MgspobAdena Health SystemComment on above:Performed By: #### [id number] #### [facility] [address], [place] [address]Vbknvdtr 10-89-6142Zfcnbe Lvl>22.3Normal>=6.7FTogus VA Medical CenterComment on above:Performed By: #### [id number] #### [facility] [address], [place] [address]Qhvm Scr Glu 1 Hron 94-61-2626Gjxwfcq [Mass/Vol]155 mg/dLHigh 55-140Adena Health SystemComment on above:Performed By: #### [id number] #### [facility] [address] [place] [address]Ztpbboa 1h post 50g loadon 88-96-3876Whocyfl, 1 hr PP 50GM dose 155ProMedica Health SystemIronon 64-45-9111Yzay66 microgram/dGGapbad55-674FdlujbAdena Health SystemComment on above:Performed By: #### [id number] #### [facility] [address], [place] [address]Dz Panel Informationon 64-18-5280WFFQ HealthcareTIBC Calculated on 52-57-4965GPPY030 microgram/sBJlxg669-426KdmuheAdena Health SystemComment on above:Performed By: #### [id number] #### [facility] [address], [place] [address]Sdpvcthvmzl [Mass/Vol]455 mg/wHUadi960-748MagstfAdena Health SystemComment on above:Performed By: #### [id number] #### [facility] [address], [place] [address]UI OB LIMITED 1+ FETUSESon 65-35-3337SK OB LIMITED 1+ FETUSES FINDINGS: Single viable [...] Delivery: 11/28/25 Gestational Age as of 07/21/2025: 31d0iFzobkkunyf macro (dipstick) panel (U)on 34-48-2968Xksfvxapa, UANegativeNegative - 4(70) +++ mg/dLNOMS HealthcareBlood, UANegativeNegative [...] HealthcareUrobilinogen, UA1.00.2 - 12 mg/dLNOMS HealthcareVit B12on 22-33-9970Zhabsdavc (Vitamin B12) [Mass/Vol]205 pg/lTLjfkis03-6842Bexpgj [facility] CenterComment on above:Performed By: #### [id number] #### [facility] [address], [place] [address]DLQ w/ Auto Diffon 75-04-8977Hcfwlkxl Absolute0.0 E9/LNormal 0.0-0.2Fisher [facility] Fin[facility] CenterComment on above:Performed By: #### [id number] #### [facility] [address], [place] [address]Dmjjfheos/100 WBC (Bld)0.2 %Normal0.0-2.0A[facility] Health SystemComment on above:Performed By: #### [id number] #### [facility] [address] [place] [address]Snx Absolute0.1 E9/LNormal0.0-0.5FTogus VA Medical Center Comment on above:Performed By: #### [id number] #### [facility] [address], [place] [address]Pqmakkpeusu/100 WBC (Bld)0.5 %Normal0.0-8.0[facility] Health SystemComment on above:Performed By: #### [id number] #### [facility] [address] [place] [address]Ghhhiquhxnt distribution width (RBC) [Ratio]13.0 %Normal 10.9-14.2FTogus VA Medical CenterComment on above:Performed By: #### [id number] #### [facility] [address] [place] [address]Llwexufacx (Bld) [Volume fraction]31.9 %Low34.0-46.0[facility] Health SystemComment on above:Performed By: #### [id number] #### [facility] [address] [place] [address]Zqpsqhkxwn (Bld) [Mass/Vol]11.1 g/dLLow12.0-16.0[facility] Health SystemComment on above:Performed By: #### [id number] #### [facility] [address] [place] [address]Zuzjh Absolute2.1 E9/LNormal1.0-4.0[facility] Comment on above:Performed By: #### [id number] #### [facility] [address], [place] [address]Fxxfcssxosh/100 WBC (Bld)16.2 %Cuumgc01.0-50.0[facility] Health SystemComment on above:Performed By: #### [id number] #### [facility] [address], [place] [address]BLW (RBC) [Entitic mass]29.9 wjVybqro59.0-34.0[facility] Health SystemComment on above:Performed By: #### [id number] #### [facility] [address] [place] [address]XLMG (RBC) [Mass/Vol]34.8 g/eRHlfqnz61.4-36.0[facility] Health SystemComment on above:Performed By: #### [id number] #### [facility] [address] [place] [address]CHI (RBC) [Entitic vol]85.7 rLUrnpox33.0-100.0[facility] Health SystemComment on above:Performed By: #### [id number] #### [facility] [address] [place] [address]Erxy Absolute0.9 E9/LNormal0.2-1.0[facility] Comment on above:Performed By: #### [id number] #### [facility] [address] [place] [address]Ruzbeikgm/100 WBC (Bld)7.0 %Normal4.0-14.0[facility] Health SystemComment on above:Performed By: #### [id number] #### [facility] [address] [place] [address]Eekhyh Absolute9.7 E9/LHigh2.0-7.5[facility] Comment on above:Performed By: #### [id number] #### [facility] [address] [place] [address]Ezlwne Auto76.1 %High36.0-75.0[facility] Comment on above:Performed By: #### [id number] #### [facility] [address] [place] [address]Mbdnpczq612.0 E9/LCknjuh555.0-500.0[facility] Comment on above:Performed By: #### [id number] #### [facility] [address], [place] [address]Jpcpgnvd mean volume (Bld) [Entitic vol]8.0 fLNormal6.4-10.8 [facility] SystemComment on above:Performed By: #### [id number] #### [facility] [address], [place] [address]OFR1.7 E12/LLow4.3-5.9[facility] Health SystemComment on above:Performed By: #### [id number] #### [facility] [address], [place] [address]EVM74.8 E9/LHigh4.0-11.0[facility] Health SystemComment on above:Performed By: #### [id number] #### [facility] [address], [place] [address]QTIsk 26-73-7243EA5 [Moles/Vol]20 mmol/TUna20-15BkcppoAdena Health SystemComment on above:Performed By: #### [id number] #### [facility] [address], [place] [address]Tvaon gap [Moles/Vol]16 mmol/LNormal6-16[facility] Health SystemComment on above:Performed By: #### [id number] #### [facility] [address], [place] [address]Jxcsovo [Mass/Vol]3.8 g/dLNormal3.3-5.0[facility] Health SystemComment on above:Performed By: #### [id number] #### [facility] [address], [place] [address]Gxwgrqh/Globulin [Mass ratio]1.3 {ratio}Normal1.1-2.2FTogus VA Medical CenterComment on above:Performed By: #### [id number] #### [facility] [address], [place] [address]Jse Phos78 Int._Unit/HMsziwm51-16NategjAdena Health System Comment on above:Performed By: #### [id number] #### [facility] [address], [place] [address]YTV64 Int._Unit/LNormal6-46[facility] Health SystemComment on above:Performed By: #### [id number] #### [facility] [address], [place] [address]AKT12 Int._Unit/LNormal5-43[facility] Health SystemComment on above:Performed By: #### [id number] #### [facility] [address], [place] [address]Etak Total0.8 mg/dLNormal0.0-1.1FTogus VA Medical Center Comment on above:Performed By: #### [id number] #### [facility] [address], [place] [address]HZP/Creat Ratio18 No QkszgMwxfbp91-88WqmpvfAdena Health SystemComment on above:Performed By: #### [id number] #### [facility] [address], [place] [address]Trxlhoa [Mass/Vol]8.9 mg/dLNormal8.9-11.1FTogus VA Medical CenterComment on above:Performed By: #### [id number] #### [facility] [address], [place] [address]Tpftfmvu [Moles/Vol]104 mmol/NDbdbxl725-138GsdbxnAdena Health SystemComment on above:Performed By: #### [id number] #### [facility] [address], [place] [address]Uhchzndpvb [Mass/Vol]0.6 mg/dLNormal0.5-1.3FTogus VA Medical CenterComment on above:Performed By: #### [id number] #### [facility] [address], [place] [address]Pkvbnqtu (S) [Mass/Vol]3.0 g/dLNormal1.4-4.0Adena Health SystemComment on above:Performed By: #### [id number] #### [facility] [address], [place] [address]Wngkqgm [Mass/Vol]92 mg/gRPnlivx54-561WrhybpAdena Health SystemComment on above:Performed By: #### [id number] #### [facility] [address], [place] [address]Tfjlbaqfh [Moles/Vol]3.7 mmol/LNormal3.5-5.3FTogus VA Medical CenterComment on above:Performed By: #### [id number] #### [facility] [address], [place] [address]Haezeuo [Mass/Vol]6.8 g/dLNormal6.0-7.8Adena Health SystemComment on above:Performed By: #### [id number] #### [facility] Laboratory [address], [place] [address]Xmsovv [Moles/Vol]136 mmol/KSsnqan322-214XkhuttAdena Health SystemComment on above:Performed By: #### [id number] #### [facility] [address], [place] [address]Tsdw nitrogen [Mass/Vol]11 mg/dLNormal5-21Adena Health SystemComment on above:Performed By: #### [id number] #### [facility] [address], [place] [address]Dxlvv Panelon 47-46-4494Aquhgfpndlw [Mass/Vol]239 mg/dLHigh 120-200Adena Health SystemComment on above:Performed By: #### [id number] #### [facility] [address], [place] [address]Bvrdsgqhupb in HDL [Mass/Vol]88 mg/dLInvalid Interpretation CodeAdena Health SystemComment on above:Result Comment: '>= 60 LOW RISK' '<= 40 HIGH RISK'Performed By: #### [id number] #### [facility] [address], [place] [address]Rhktdvwjhff in LDL [Mass/Vol]144 mg/dLHigh<=129Adena Health SystemComment on above:Performed By: #### [id number] #### [facility] [address] [place] [place], [place] [address]Zidjhqdulnn in VLDL [Mass/Vol]40 mg/dLNormal7-40Adena Health SystemComment on above:Performed By: #### [id number] #### [facility] Laboratory [address], [place] [address]Puhblgantlmi [Mass/Vol]202 mg/dLHigh<=149Adena Health SystemComment on above:Performed By: #### [id number] #### [facility] [address] [facility] [place], [place] [address]tXDNex 94-93-8837rPBR706 mL/min/1.73 t5Orlhdu>=59Adena Health SystemComment on above:Performed By: #### [id number] #### [facility] Laboratory [address], [place] [address]XED, SERUM, OPEN SPINA BIFIDAon 45-94-3655CIN MOM0.95.[facility] HealthcareAFP VALUE59.2 ng/mL.[facility] HealthcareCOMMENT:Comment.[facility] Healthcare Comment on above:Amy Ramos, Ph.D., [facility] Director References: Available Upon Request. Multiples Of Median Cutoffs For AFP Elevations Hsieh 2.5 Black 2.8 IDD 2.0 Twins 4.5 Abbreviation Definitions IDD - Insulin Dep Diabetes OSBR - Open Spina Bifida Risk For further inquiries contact [employer] at [phone]. This test was developed and its performance characteristics determined by [employer]. It has not been cleared or approved by the Food and Drug Administration. Performed at: [facility] [place], [place] [id number] Drapery Installer: Dona Justin [facility], Phone: [phone] GEST. AGE ON COLLECTION DATE20.6. weeksNOMS HealthcareGESTAT. AGE BASED ONLMP. NOMS HealthcareComment on above:Recalculations are not recommended when gestational dating by LMP and ultrasound are within 10 days. INSULIN DEP DIABETESNo.[facility] Health SystemINTERPRETATIONComment.[facility] Comment on above:Interpretation: Screen Negative [...] Customer Services to discuss available options. The [employer] recommends amniocentesis be offered to women age 35 and older. MATERNAL AGE AT EDD30.7. yrNOPR HealthcareMULTIPLE GESTATIONNo.[facility] OSBR RISK 1 [id number].[facility] Health SystemRACECaucasian.[facility] SystemRESULTSReport. [facility] Health SystemTEST RESULTS:Negative.[facility] SystemQlgqbgjmggZIJZAR402. lbMultiCare Health HealthcarePREGNANCY N N LMP [id number] 2 17 N 1 Y 146 N N N N N White/ CLINISYNCNOPR HealthcareUS OB 14+ WEEKS ANATOMY SCANon 65-42-9774NH OB 14+ WEEKS ANATOMY SCANEXAM: US OB [...] II, MD, PHD at 16-Jul-2025 08:07:07 AM [facility] TeleradiologyNormalNot AvailableComment on above:Order Comment: US OB ANATOMY SINGLE W US OB CERVICAL LENGTH Estimated Date of Delivery: 11/28/25 Gestational Age as of 06/22/2025: 42c1iCuloerxxxh macro (dipstick) panel (U)on 25-96-6092Asnypsomh, UANegativeNegative - 4(70) +++ mg/dLNOMS HealthcareBlood, UANegativeNegative [...] 12 mg/dLNOMS HealthcareNOMS Healthcare RECURRENT VAGINITIS (HTRX)on 55-08-6893JGSGHEKAN WYCIACQ1TNOB Healthcare ATOPOBIUM VAGINAENot detectedNOMS HealthcareBVAB 2,3 (BACTERIAL VAGINOSIS ASSOCIATED BACTERIA 2, 3); MOBILUNCUS XZN9OWAR HealthcareBVAB 2,3 (BACTERIAL VAGINOSIS ASSOCIATED BACTERIA 2, 3); MOBILUNCUS SPPNot detectedNOMS Healthcare RADHA ALBICANS, PARAPSILOSIS, NERCOLDHIX0TVDS HealthcareCANDIDA ALBICANS, PARAPSILOSIS, TROPICALISNot detectedNOMS HealthcareCANDIDA EYURFLPQ8GBGW HealthcareCANDIDA GLABRATANot detectedNOMS HealthcareCANDIDA TARORD1GOYF HealthcareCANDIDA KRUSEINot detectedNOMS HealthcareCHLAMYDIA HMUKHHYCSGU5MOTA HealthcareCHLAMYDIA TRACHOMATISNot detectedNOMS HealthcareGARDNERELLA VAGINALIS 17.967AbnormalNOMS HealthcareGARDNERELLA VAGINALISDetectedAbnormalNOPR HealthcareInterpretation and review of laboratory resultsAbnormalNOPR Healthcare MEGASPHAERA (TYPES 1, 2)0NOMS HealthcareMEGASPHAERA (TYPES 1, 2)Not detectedNOMS HealthcareMYCOPLASMA CWHFZGRDED9TYPL HealthcareMYCOPLASMA GENITALIUMNot detectedNOMS HealthcareNEISSERIA GOTUTEWRDIC1ABEQ HealthcareNEISSERIA GONORRHOEAENot detectedNOMS HealthcareTRICHOMONAS IEGMOMIKD1JRCZ Healthcare TRICHOMONAS VAGINALISNot detectedNOMS HealthcareNOMS HealthcareUrinalysis macro (dipstick) panel (U)on 08-27-0550Umgmkgskx, UANegativeNegative - 4(70) +++ mg/dL NOMS HealthcareBlood, UANegativeNegative - 50 Teodoro/mcLNOMS HealthcareClarity, UA ClearNOMS HealthcareColor, UAYellowNOMS HealthcareGlucose, UANegativeNegative - 2000(110) ++++ mg/dLNOMS HealthcareInterpretation and review of laboratory resultsNormalNOPR HealthcareKetones, UANegativeNegative - 160(16) ++++ mg/dLNOMS HealthcareLeukocytes, UANegativeNegative - 500+++ Robinson/mcLNOMS Healthcare Nitrite, UANegativeNegative - PositiveNOMS HealthcarepH, UA65 - 9NOMS Healthcare Protein, UANegativeNegative - 1999(20) ++++ mg/dLNOMS HealthcareSpec Grav, UA 1.0051 - 1.03NOMS HealthcareUrobilinogen, UA1.00.2 - 12 mg/dLNOPR HealthcareNOPR HealthcareUrinalysis macro (dipstick) panel (U)on 53-44-2410Pofljwhwe, UA NegativeNegative - 4(70) +++ mg/dLNOPR HealthcareBlood, UANegativeNegative - 50 Teodoro/mcLNOPR HealthcareClarity, UAClearNOMS HealthcareColor, UAYellowNOPR HealthcareGlucose, UANegativeNegative - 2000(110) ++++ mg/dLHUNTS[facility]ENTAL [facility]ALTH [facility] Healthcare Interpretation and review of laboratory resultsNormalH[facility]ALTH [facility] HealthcareKetones, UA NegativeNegative - 160(16) ++++ mg/dLHUNTSMAN MENTAL HEALTH INSTITUTE HealthcareLeukocytes, UAPositive Negative - 500+++ Robinson/mcLHUNTSMAN MENTAL HEALTH INSTITUTE HealthcareComment on above:smallNitrite, UA NegativeNegative - PositiveNOPR HealthcarepH, UA6.55 - 9NOMS HealthcareProtein, UANegativeNegative - 1999(20) ++++ mg/dLNOPR HealthcareSpec Grav, UA1.011 - 1.03 NOMS HealthcareUrobilinogen, UA0.20.2 - 12 mg/dLSt. [facility] Healthcare BOX TESTon 32-55-9083LMD TEST SENT OUTunHumboldt General Hospital (HulmboldtKaxggotygeSJB8gnbfrKRAR OqumytxzwlCHF61/08/20NOLee's Summit HospitalUNITY BOX CLINISYNCCBC without diffon 62-94-3564Vulwdeudvd (Bld) [Volume fraction]39.8 % [facility] SystemHemoglobin (Bld) [Mass/Vol]13.2 g/dLThe Surgical Hospital at SouthwoodsPlatelets (Bld) [#/Vol]390 10*3/uLThe Surgical Hospital at SouthwoodsRbc Mcv (Fl) By Automated Count84.7The [facility] Hospital at SouthwoodsDrug Screen, Urineon 05-04-2025 Amphetamine/MethamphetamineNegativeKettering Health SystemBarbituratesNegative [facility] SystemBenzodiazepinesNegativeK[facility]tering Health SystemCocaine MetaboliteNegativeKettering Health SystemMethadoneNegativeK[facility]tering Health SystemOpiatesNegativeProMedica Health SystemOxycodoneNegativeProMedica Health SystemPhencyclidineNegativeProMedica Health SystemThc Marijuana, UrineNegative [facility] SystemHBV surface Ag IA Qlon 60-74-2644Ngcclvsmq B Surface AntigenNegativeProMedica Health SystemHCV Ab IA Qlon 79-19-9698XZI Ab Ql (S) Non-ReactiveProMedihi Health SystemHIV 1+2 Ab+HIV1 p24 Ag IA Qlon 84-62-6828ZHV 1&2 AB/AGNon-ReactiveKettering Health SystemHemoglobin A1con 35-18-7832XzB4f (Bld) [Mass fraction]5.3 %4.0 - 6.0 %[facility] SystemNo Panel Information on 93-41-6163KECC HealthcareRubella IGG immune statusOrdered By: Angeline Velasquez on 23-06-1413Hjpglum immune IgGProWalker Baptist Medical Center Health SystemType and screenon 81-70-3270Mcw/Rh(D)PositiveProDayton Children'S HospitalHCG ( test) Ql (U)on 52-58-3030Ormqoeecqanuho and review of laboratory resultsAbnormalNOPR Healthcare Preg Test, UrPositiveNegativeNOLee's Summit HospitalNOPR HealthcareUS OB TRANSVAGINALon 51-02-0564[place] [address] Ultrasound Report Signed Patient: JUHI COPE MR#: [id number] : 1995 Acct:[id number] Age/Sex: 30 / F ADM Date: 05/01/25 Loc: US Attending Dr: Nathan Pop D.O. Ordering Physician: Nathan Pop D.O. Date of Service: 05/01/25 Procedure(s): US OB transvaginal Accession Number(s): [id number] cc: Nathan Pop D.O.; Physician,Non-Staff Katherine The [address] [address] Patient Name: JUHI COPE MRN: [id number] date: 1995 Sex: F Assigned Patient Location: US Current Patient Location: US Accession/Order Number: [id number] Exam Date: 05/01/2025 08:57 Report Date: 05/01/2025 [...] Faria M.D. 05/01/2025 9:01 AM Dictation Location: [place] [address] Electronically authenticated by: [id number] Y Date: 05/01/2025 09:01 Dictated By: Will Faria M.D. Signed By: 05/01/2504 DD/ 0 TD/TT: Music Librarian:TBHRadiology, Radiologist, MD - 05/01/2025 [place] [address] Ultrasound Report Signed Patient: JUHI COPE MR#: [id number] : 1995 Acct:[id number] Age/Sex: 30 / F ADM Date: 05/01/25 Loc: US Attending Dr: Nathan Pop D.O. Ordering Physician: Nathan Pop D.O. Date of Service: 05/01/25 Procedure(s): US OB transvaginal Accession Number(s): [id number] cc: Nathan Pop D.O.; Physician,Non-Staff Katherine [address] [address] Patient Name: JUHI COPE MRN: [id number] date: 1995 Sex: F Assigned Patient Location: US Current Patient Location: US Accession/Order Number: [id number] Exam Date: 05/01/2025 08:57 Report Date: 05/01/2025 [...] Faria M.D. 05/01/2025 9:01 AM Dictation Location: [place] [address] Electronically authenticated by: [id number] Y Date: 05/01/2025 09:01 Dictated By: Will Faria M.D. Signed By: 05/01/25903 DD/ 0 TD/TT: Music Librarian: LANETTE HealthcareRadiology Study observation (narrative)LANETTE SmallUS OB TRANSVAGINALOrdered By: Radiologist Radiology on 68-74-2593IDBN Healthcare Work Phone: Urinalysis macro (dipstick) panel (U)on 05-01-2025 Bilirubin, UANegativeNegative - 4(70) +++ mg/dLNOMS HealthcareBlood, UANegative Negative - 50 Teodoro/mcLNOMS HealthcareClarity, UAClearNOMS HealthcareColor, UA YellowNOMS HealthcareGlucose, UANegativeNegative - 2000(110) ++++ mg/dLNOMS HealthcareInterpretation and review of laboratory resultsNormalNOPR Healthcare Ketones, UANegativeNegative - 160(16) ++++ mg/dLNOMS HealthcareLeukocytes, UA NegativeNegative - 500+++ Robinson/mcLNOMS HealthcareNitrite, UANegativeNegative - PositiveNOMS HealthcarepH, UA5.55 - 9NOMS HealthcareProtein, UANegativeNegative - 2000(20) ++++ mg/dLNOMS HealthcareSpec Grav, UA1.021 - 1.03NOMS Healthcare Urobilinogen, UA1.00.2 - 12 mg/dLNOMS HealthcareNOMS HealthcareCHEMISTRYOrdered By: SYSTEM SYSTEM on 25-78-8548Vwajfeikttqy Lvl31.35 ng/mLInvalid Interpretation CodeRemisol ChemComment on above:Result Comment: 'F NON FOLLICULAR = 0.10 - 0.60' 'LUTEAL = 3.00 - 17.5' 'MIDLUTEAL = 3.30 - 18.6' 'POST-MENOPAUSE = 0.10 - 0.40' '-FIRST TRIMESTER = 8.30 - 66.5' 'SECOND TRIMESTER = 18.9 - 66.1' 'THIRD TRIMESTER = 35.8 - 312.4' 'MALES = 0.14 - 2.06'Progesteroneon 16-72-7338Wkwkifnwjdcw Lvl31.35 ng/mLInvalid Interpretation CodeAdena Health SystemComment on above:Result Comment: 'F NON FOLLICULAR = 0.10 - 0.60' 'LUTEAL = 3.00 - 17.5' 'MIDLUTEAL = 3.30 - 18.6' 'POST-MENOPAUSE = 0.10 - 0.40' '-FIRST TRIMESTER = 8.30 - 66.5' 'SECOND TRIMESTER = 18.9 - 66.1' 'THIRD TRIMESTER = 35.8 - 312.4' 'MALES = 0.14 - 2.06'Performed By: #### [id number] #### [facility] [address] [place], [place] [address]Ciqnfduszzcuxz 66-11-2860Idhcxbeiqhme8.2 ng/mLNormal.The [facility] Physician GroupComment on above:Result Comment: Follicular phase 0.1 - 0.9 Luteal phase 1.8 - 23.9 Ovulation phase 0.1 - 12.0 First trimester 11.0 - 44.3 Second trimester 25.4 - 83.3 Third trimester 58.7 - 214.0 Postmenopausal 0.0 - 0.1 Performed at: - [facility] [id number] Draper[place] Installer: Cm Sandoval PhD, Phone: [phone] PERFORMED BY: [address] [place] [address] PATHOLOGIST DANCE HALL HOSTESS ARNULFO THOMAS M.D.Performed By: #### PROG #### [facility] , Transvaginal Non-OBon 11-12-8838MN Transvaginal Non-OBExam Date/Time: 01/22/2025 16:22 EST Reason for Exam: N94.6 Report PLEASE SEE US Pelvis Non-OB Complete REPORT DATED: 01/22/2025. Ordering Provider: Nathan POP FINAL REPORT Dictated: 01/27/2025 10:11 am Siddharth Foy MD Signed (Electronic Signature): 01/27/2025 10:11 am Signed by: Siddharth Foy MD Transcribed by: ELOISA Technologist: Filiberto [facility] CenterUS Pelvis Non-OB Completeon 30-55-6115EV Pelvis Non-OB CompleteExam Date/Time: 01/22/2025 16:24 EST [...] Kate Gonzalez MD Transcribed by: ELOISA Technologist: TalyaAdena Health SystemMILADY,APTIMA HPV,AGE GDLNon 69-19-6351WWN GDLN ACOG TESTINGNote.NOMS HealthcareComment on above:TESTS RESULT FLAG UNITS REF RANGE LAB Clinician Provided Cytology Information Source.............Cervix;Endocervix No. of containers..01 ThinPrep Vial Age Algo ACOG Sarah... -24 12 FLAG LEGEND: L-Low Normal,H-High Normal,LL-Alert Low,HH-Alert High <-Panic Low,>-Panic High,A-Abnormal,AA-Critical Abnormal Performed at: 01 =G [facility] [place] [address] Loren Oneal MD, IGP, RFX APTIMA HPV ASCUNote.[facility] HealthcareComment on above:TESTS RESULT FLAG UNITS REF RANGE LAB DIAGNOSIS: 02 NEGATIVE FOR INTRAEPITHELIAL LESION OR MALIGNANCY. Specimen adequacy: 02 Satisfactory for evaluation. Endocervical and/or squamous metaplastic cells (endocervical component) are present. Performed by: Sophia Calzada, Basket Operator ([facility]) . 02 Note: Note 02 [...] Low,>-Panic High,A-Abnormal,AA-Critical Abnormal Performed at: [address] [address] Loren Oneal MD, Performed at: =G - [facility] [id number] Drapery Installer: Loren Oneal MD, Phone: [phone] Performed at: [facility] [id number] Draper[place] Installer: Loren Oneal MD, Phone: [phone] BRUSH-SPATULA CERVIX ENDOCERVIX [facility] 44-20-2374WNLAUyriyzzwh (WHQ) JUHI COPE ([id number]) 1995 F Date Time Provider Department 04/29/24 [...] [I10] Encounter Status:Closed by CANDIS GARCES on 04/29/24[facility] 38-47-9791KYWTFccztzbov (WHQ) JUHI COPE ([id number]) 1995 F Date Time Provider Department 04/25/24 CHARLENE RODRIGUEZ During your visit today, we recorded the following information about you: Anna De Leon 04/25/2024 1:10 PM Signed Pt got in sooner for surgery with her local sound effects supervisor. Please cancel surgery and all pre [...] Encounter Status:Closed by SUSI DE LEONLEY on 04/25/24[facility] 12-LEADon 59-63-1298T[address] [address] Electrocardiograph Report Signed Patient: JUHI COPE MR#: [id number] : 1995 Acct:[id number] Age/Sex: 28 / F ADM Date: 02/13/24 Loc: PST Attending Dr: Nathan Pop D.O. Ordering Physician: Nathan Pop D.O. Date of Service: 02/13/24 Procedure(s): ECG 12 lead Accession Number(s): [id number] cc: [facility] Test Date: 2024-02-13 Pat Name: JUHI COPE Department: Room: - Gender: Female Wire Coating Operator Metal: : 1995 Requested By: NATHAN POP Order Number: [id number] Reading MD: MARY KATE ORDAZ Measurements Intervals [place] Rate: 86 P: 31 UT: 133 QRS: 20 QRSD: 89 T: 47 QT: 374 QTc: 449 Interpretive Statements SINUS RHYTHM No previous ECG available for comparison Electronically Signed On 02-14-2024 6:50:27 EDT by MARY KATE ORDAZ Dictated By: Mary Kate Ordaz D.O. Signed By: 02/14/24 0650 DD/ 1455 TD/TT: Music Librarian:TBHRadiology, Radiologist, MD - 02/14/[address] [address] Electrocardiograph Report Signed Patient: JUHI COPE MR#: [id number] : 1995 Acct:[id number] Age/Sex: 28 / F ADM Date: 02/13/24 Loc: PST Attending Dr: Nathan Pop D.O. Ordering Physician: Nathan Pop D.O. Date of Service: 02/13/24 Procedure(s): ECG 12 lead Accession Number(s): [id number] cc: [facility] Test Date: 2024-02-13 Pat Name: JUHI COPE Department: Room: - Gender: Female Wire Coating Operator Metal: : 1995 Requested By: NATHAN POP Order Number: [id number] Reading MD: MARY KATE ORDAZ Measurements Intervals [place] Rate: 86 P: 31 UT: 133 QRS: 20 QRSD: 89 T: 47 QT: 374 QTc: 449 Interpretive Statements SINUS RHYTHM No previous ECG available for comparison Electronically Signed On 02-14-2024 6:50:27 EDT by MARY KATE ORDAZ Dictated By: Mary Kate Ordaz D.O. Signed By: 02/14/24 0650 DD/ 1455 TD/TT: Music Librarian: LANETTE HealthcareECG 12-LEADOrdered By: Radiologist Radiology on 55-73-7245AGUU Healthcare Work Phone: ECG 12-LEADon 93-64-2091Nemswtjjv Study observation (narrative)LANETTE HealthcareUS PELVIS W/ TRANSVAGINALon 05-82-4646Rq[place] [address] Ultrasound Report Signed Patient: JUHI COPE MR#: [id number] : 1995 Acct:[id number] Age/Sex: 28 / F ADM Date: 01/15/24 [facility]: [facility] Attending Dr: Nathan Pop D.O. Ordering Physician: Nathan Pop D.O. Date of Service: 01/15/24 Procedure(s): US pelvis w/ transvaginal Accession Number(s): [id number] cc: Nathan Pop D.O.; Physician,Non-Staff Katherine The [address] [address] Patient Name: JUHI COPE MRN: [id number] date: 1995 Sex: F Assigned [facility] Current [facility] Accession/Order Number: [id number] Exam Date: 01/15/2024 07:57 Report Date: 01/15/2024 [...] Signed By: 01/15/24 1144 DD/ 1142 TD/TT: Music Librarian:TBHRadiology, Radiologist, - 01/15/2024 [place] [address] Ultrasound Report Signed Patient: JUHI COPE MR#: [id number] : 1995 Acct:[id number] Age/Sex: 28 / F ADM Date: 01/15/24 Loc: [facility] Attending Dr: Nathan Pop D.O. Ordering Physician: Nathan Pop D.O. Date of Service: 01/15/24 Procedure(s): US pelvis w/ transvaginal Accession Number(s): [id number] cc: Nathan Pop D.O.; Physician,Non-Staff M.DKaren The [place] [id number] Patient Name: JUHI COPE MRN: [id number] date: 1995 Sex: F Assigned Patient Location: [facility] Current Patient Location: [facility] Accession/Order Number: [id number] Exam Date: 01/15/2024 07:57 Report Date: 01/15/2024 [...] Signed By: 01/15/24 1144 DD/ 1142 TD/TT: Music Librarian: LANETTE HealthcareRadiology Study observation (narrative)[facility] HealthcareUS PELVIS W/ TRANSVAGINALOrdered By: Radiologist Radiology on 17-49-2194RSDP [employer] Work Phone: cNPTanya 25-12-6559QFUBAjdtmjsxq (Q) JUHI COPE ([id number]) 1995 F Date Time Provider Department 12/12/23 [...] [I10] Encounter Status:Closed by CANDIS GARCES on 12/12/23[facility] 89-49-2955BMECVbqmfx Visit (GYMGME) JUHI COPE ([id number]) 1995 F Date Time Provider Department 12/10/23 10:30 AM CHARLENE RODRIGUEZ During your visit today, we recorded the following information about you: Pulse Blood pressure Weight 98/minute 124/84 68.9 kg Charlene Rodriguez DO 12/10/2023 3:14 PM Signed [facility] SECTION FOR MINIMALLY INVASIVE GYNECOLOGIC SURGERY OUTPATIENT VISIT DATE 12/10/2023 OUTPATIENT VISIT TYPE Follow-up visit PRIMARY CARE PHYSICIAN: Denny Rodríguez [address] [place] [address] REFERRING PHYSICIAN: Self CHIEF COMPLAINT: No chief [...] MRI: no evidence of Past Gynecologic History: Head Of Marketing Adometry History LMP: 07/08/2023 (Exact Date), Having periods Age at Menarche: 14 Age at First : 27 Age at Menopause: Head Of Marketing Adometry History Comments: Sexual Activity: Never; No partner [...] Skin: Skin color, texture (more content not included)...NormalRegency Hospital [facility] Eastology Cervical or vaginal smear or scraping studyon 31-80-9878GPOX HealthcareCNPNon 06-34-3457KLZJYlonsmphy ([facility]) JUHI COPE ([id number]) 1995 F Date Time Provider Department 08/02/23 CHARLENE RODRIGUEZ [facility] During your visit today, we [...] completed via Cover MyMeds. Juhi Cope (Morales: [id number]) - [id number] Orilissa 150MG tablets Status: Sent To Plan [...] [I10] Encounter Status:Closed by JENIFER LYNN on 08/02/23[facility] 30-58-1970LAJVCggvza Visit (GYMGME) JUHI COPE ([id number]) 1995 F Date Time Provider Department 07/16/23 11:30 AM CHARLENE RODRIGUEZ During your visit today, we recorded the following information about you: Blood pressure Last Period 136/90 07/08/23 Charlene Rodriguez DO 07/16/2023 12:41 PM Signed [facility] SECTION FOR MINIMALLY INVASIVE GYNECOLOGIC SURGERY OUTPATIENT VISIT DATE 07/16/2023 OUTPATIENT VISIT TYPE Follow-up visit PRIMARY CARE PHYSICIAN: Denny Rodríguez [address] [place] [address] REFERRING PHYSICIAN: Denny Rodríguez CHIEF COMPLAINT: No [...] additional bowel lesions identified Past Gynecologic History: Head Of Marketing Adometry History LMP: 07/08/2023 (Exact Date), Having periods Age at Menarche: 14 Age at First : 27 Age at Menopause: Head Of Marketing Adometry History Comments: Sexual Activity: Never; No partner [...] POSITIVES IN BOLD Cons (more content not included)...NormalCincinnati Va Medical CenterMRI FEMALE PELVIS WO/W IVCONon 15-22-0157FFL FEMALE PELVIS WO/W IVCON* * *Final Report* * * DATE OF EXAM: Jun 12 2023 2:47PM [facility] 0713 - MRI FEMALE PELVIS WO/W IVCON [...] additional findings. IMPRESSION: No deep infiltrating endometriosis. Music Librarian: DAVID Transcribe Date/Time: Jun 12 2023 2:54P Dictated by : ASHLEY DUKE MD This examination was interpreted and the report reviewed and electronically signed by: SONIDO FLAHERTY MD on Jun 12 2023 4:51PM EST [id number] Memorial HospitalCNPNon 59-69-6902PZUSNlnpncgfj (GYNMN) JUHI COPE ([id number]) 1995 F Date Time Provider Department 05/11/23 [...] Takes aygestin 5mg daily. She did not black pickler flexeril. Encourage to black pickler the flexeril as this will help with the cramping. Reviewed red flag bleeding symptoms that require trip to ER (soaking greater than one overnight pad per hour, chest pain, shortness of breath, fatigue, palpitations).. Advised keep appt. Gives verbal understanding. Appointments for Next 60 Days Date Time Provider Location Dept Phone 05/17/2023 1:00 PM CHARLENE RODRIGUEZ [facility] [phone] Candis Suárez RN Allergies As of Date: 05/11/2023 (No Known Allergies) Date Reviewed: 05/09/2023 Reviewed by: Jihan Downs APRN.NUTRITION AIDES TEACHER - Fully Assessed Reason for Visit: [...] [I10] Encounter Status:Closed by CANDIS WILLINGHAM on 05/11/23[facility] CenterGracie 63-97-2693YNHEEjijjb Visit ([facility]) NITO COPEIS ([id number]) 1995 F Date Time Provider Department 05/01/23 10:30 AM JIHAN DOWNS [facility] During your visit today, we recorded the following information about you: Blood pressure Weight Height Last Period 148/64 64.9 kg 1.575 m 04/22/23 Jihan Downs APRN.NUTRITION AIDES TEACHER 05/09/2023 11:46 AM Signed Juhi Cope is a 28 year old female who presents for problem visit for pain HPI: Pain is week before period and week of period. Worse on her period for every day she's bleeding Urinary - No symptoms GI - Always constipated. No meds Mettler - painful always Pain is on left [...] L0 SAB0 IAB0 Ectopic0 Multiple0 Live Births0 Head Of Marketing Adometry History LMP: 03/26/2023 (Approximate), Having periods Age at Menarche: Age at First : Age at Menopause: Head Of Marketing Adometry History Comments: Sexual Activity: Never; No partner [...] physical therapy - or can go locally pelvicMpaxab.Samuels Sleep Trial flexeril at bedtime Can consider Baclofen [...] physical therapy - or can go locally pelvicMpaxab.Samuels Sleep Trial flexeril at bedtime Can consider Baclofen suppositories - let me know if you want to trial after you go to PT Contin (more content not included)...NormalCincinnati Va Medical CenterCHEMISTRY Ordered By: SYSTEM SYSTEM on 49-32-3680Usqjocf [Mass/Vol]4.3 g/dLNormal3.3 - 5.0 gm/dLFT RemisolAlbumin/Globulin [Mass [...] [Mass/Vol]8.8 mg/dLLow8.9 - 11.1 mg/dLFTMC RemisolChloride [Moles/Vol]100 mmol/HTbm117 - 111 mmol/LFTMC RemisolCO2 [Moles/Vol]24 mmol/L Hvzkcz30 - 31 mmol/LFTMC RemisolCreatinine [Mass/Vol]1.0 mg/dLNormal0.5 - 1.3 mg/dLFTMC RemisolGFR/1.73 sq M.predicted among blacks MDRD (S/P/Bld) [Vol rate/Area]mL/min/1.73 j3Yewozo>=59mL/min/1.73 m2FT[facility] Chem SGFR/1.73 sq M.predicted among non-blacks MDRD (S/P/Bld) [Vol rate/Area]mL/min/1.73 r3Sdivhe >=59mL/min/1.73 m2FT[facility] Chem SGlobulin (S) [Mass/Vol]3.6 g/dLNormal1.4 - 4.0 gm/dLFTMC RemisolGlucose [Mass/Vol]104 mg/fSFdvrfx27 - 199 mg/dLFTMC Remisol Potassium [Moles/Vol]3.6 mmol/LNormal3.5 - 5.3 mmol/LFTMC RemisolProtein [Mass/Vol]7.9 g/dLHigh6.0 - 7.8 gm/dLFTMC RemisolSodium [Moles/Vol]134 mmol/LLow 135 - 145 mmol/LFTMC RemisolUrea nitrogen [Mass/Vol]10 mg/dLNormal5 - 21 mg/dL [facility] RemisolUrea nitrogen/Creatinine [Mass ratio]10 mg/loAwwjnh25 - 20FT[facility] RemisolHEMATOLOGYOrdered By: Amairani Jenkins on 43-21-1962Xitiavflkdmi Ql (Bld) Present (01/31/23 2:10 PM)NormalFTMC HemeManSSErythrocyte [...] fLNormal6.4 - 10.8 fLFTMC HemeAutoSSPlatelets (Bld) [#/Vol]471.0 E9/AYgjtnj567.0 - 500.0 E9/LFTMC HemeAutoSSRBC (Bld) [#/Vol]4.3 E12/LNormal4.3 [...] - 0.5 E9/L [facility] HemeAutoSSLymphocytes/100 WBC (Bld)31.7 %Lxceyq27.0 - 50.0 %[facility] HemeAutoSS Lymphocytes/Leukocytes Auto (Bld) [Pure # fraction]2.4 E9/LNormal1.0 - 4.0 E9/L [facility] HemeAutoSSMonocytes/100 WBC (Bld)9.1 %Normal4.0 - 14.0 %[facility] HemeAutoSS Monocytes/Leukocytes Auto (Bld) [Pure # fraction]0.7 E9/LNormal0.2 - 1.0 E9/L [facility] HemeAutoSSNeutrophils/100 WBC (Bld)57.4 %Ngufof03.0 - 75.0 %[facility] HemeAutoSS Neutrophils/Leukocytes Auto (Bld) [Pure # fraction]4.3 E9/LNormal2.0 - 7.5 E9/L [facility] HemeAutoSSSEROLOGYOrdered By: Patricia Newton on 62-74-2614GVA.beta subunit (U) [Moles/Vol]NegativeNormalFT Man SeroURINALYSISOrdered By: Solomon Leal on 39-19-3070Wnxrwmato Ql (U)Negative (01/31/23 1:57 PM)NormalNegativeFTMC UA Auto SSClarity (U)Clear (01/31/23 1:57 PM)NormalClearFTMC UA Auto SSColor (U)Yellow (01/31/23 1:57 PM)NormalYellowFTMC UA Auto SSEpithelial cells.squamous LM.HPF (Urine sed) [#/Area]3-4 /HPFNormal0-2/HPFFTMC UA Auto SSGlucose Test strip (U) [Mass/Vol]Negative (01/31/23 1:57 PM)NormalNegativeFT UA Auto SSHemoglobin Ql (U)Negative (01/31/23 1:57 PM)NormalNegativeFTMC UA Auto SSKetones (U) [Mass/Vol]Negative (01/31/23 1:57 PM)NormalNegativeFT UA Auto SSLithium.plasma/[place].RBC (Bld) [Mass ratio]0-3 /HPFNormal0-3/HPFFTMC UA Auto SSNitrite Ql (U)Negative (01/31/23 1:57 PM)NormalNegativeW[facility] Auto SSpH (U)6.0 *NA* (01/31/23 1:57 PM)Invalid Interpretation Code5.0 - 9.0[facility] UA Auto SSProtein (U) [Mass/Vol]Negative (01/31/23 1:57 PM)NormalNegativeW[facility] UA Auto SSSpecific gravity (U) [Rel density] 1.010 *NA* (01/31/23 1:57 PM)Invalid Interpretation Code1.005 - 1.030[facility] UA Auto SSUA Spec DescClean Catch (01/31/23 1:57 PM)NormalWAGON[facility] UA Auto SSUrobilinogen Qn (U)0.4661618 {Aspen'U}/dL Normal0.0 - 1.0 EU/dLWAGONER [facility] [place] UA Auto SSWBC Auto Ql (U)Negative (01/31/23 1:57 PM)NormalNegativeW[facility] [place] Auto SSWBC LM.HPF (Urine sed) [#/Area]0-5 /HPFNormal0-5/HPFWAGONER [facility] [place] UA Auto SSBLOOD BANKOrdered By: Teena Quiroz on 89-83-5889MXD/Rh InterpPositiveInvalid Interpretation CodeWAGONER [facility] BB SubsectionABSC Gel InterpNegative (12/30/22 11:28 AM)NormalWAGON[facility] BB SubsectionCHEMISTRYOrdered By: SYSTEM SYSTEM on 57-58-9968Swjsy gap [Moles/Vol]12 mmol/LNormal6 - 16 mEq/LFTMC RemisolCalcium [Mass/Vol]8.6 mg/dLLow8.9 - 11.1 mg/dLFTMC RemisolChloride [Moles/Vol]103 mmol/L Bokgdz095 - 111 mmol/LFTMC RemisolCO2 [Moles/Vol]26 mmol/CWrktbi89 - 31 mmol/L [facility] RemisolCreatinine [Mass/Vol]0.9 mg/dLNormal0.5 - 1.3 mg/dLFTMC Remisol GFR/1.73 sq M.predicted among blacks MDRD (S/P/Bld) [Vol rate/Area]mL/min/1.73 f9Jqkaix>=59mL/min/1.73 m2FT Chem SGFR/1.73 sq M.predicted among non-blacks MDRD (S/P/Bld) [Vol rate/Area]mL/min/1.73 w5Wflxfh>=59mL/min/1.73 m2FT Chem S Glucose [Mass/Vol]105 mg/nXTxqfds89 - 199 mg/dLFTMC RemisolPotassium [Moles/Vol] 3.8 mmol/LNormal3.5 - 5.3 mmol/LFTMC RemisolSodium [Moles/Vol]137 mmol/LNormal 135 - 145 mmol/LFTMC RemisolUrea nitrogen [Mass/Vol]17 mg/dLNormal5 - 21 mg/dL [facility] RemisolUrea nitrogen/Creatinine [Mass ratio]19 mg/crHsuycc80 - 20FT[facility] RemisolCOAGULATIONOrdered By: Courtney Tang on 47-75-6491vWPX Coag (PPP) [Time]31.5 gEmcccn16.1 - 36.5 second(s)[facility] Auto CoagINR Coag (PPP) [Relative time]1.0 {INR}Invalid Interpretation CodeFTMC Auto CoagPT Coag (PPP) [Time]11.7 sNormal 9.4 - 12.5 second(s)[facility] Auto CoagHEMATOLOGYOrdered By: SYSTEM SYSTEM on 11-09-2198Kwtowkyag/100 WBC (Bld)1.2 %Normal0.0 - 2.0 %[facility] HemeAutoSS Basophils/Leukocytes Auto (Bld) [Pure # fraction]0.1 E9/LNormal0.0 - 0.2 E9/L [facility] HemeAutoSSEosinophils/100 WBC (Bld)4.1 %Normal0.0 - 8.0 %[facility] HemeAutoSS Eosinophils/Leukocytes Auto (Bld) [Pure # fraction]0.2 E9/LNormal0.0 - 0.5 E9/L [facility] HemeAutoSSLymphocytes/100 WBC (Bld)40.5 %Rtscvz81.0 - 50.0 %[facility] HemeAutoSS Lymphocytes/Leukocytes Auto (Bld) [Pure # fraction]2.3 E9/LNormal1.0 - 4.0 E9/L [facility] HemeAutoSSMonocytes/100 WBC (Bld)7.6 %Normal4.0 - 14.0 %[facility] HemeAutoSS Monocytes/Leukocytes Auto (Bld) [Pure # fraction]0.4 E9/LNormal0.2 - 1.0 E9/L [facility] HemeAutoSSNeutrophils/100 WBC (Bld)46.6 %Iiwldh52.0 - 75.0 %[facility] HemeAutoSS Neutrophils/Leukocytes Auto (Bld) [Pure # fraction]2.6 E9/LNormal2.0 - 7.5 E9/L [facility] HemeAutoSSHEMATOLOGYOrdered By: Courtney Case on 10-74-6417Emkclpagvct distribution width (RBC) [Ratio]14.1 %Uorwma03.9 - 14.2 %[facility] HemeAutoSS Hematocrit (Bld) [Volume fraction]31.5 %Low34.0 - 46.0 %[facility] HemeAutoSS Hemoglobin (Bld) [Mass/Vol]10.0 g/dLLow12.0 - 16.0 gm/dLFTMC HemeAutoSSMCH (RBC) [Entitic mass]25.3 pgLow27.0 - 34.0 pgFTMC HemeAutoSSMCHC (RBC) [Mass/Vol]31.8 g/gJGrmstc20.4 - 36.0 gm/dLFTMC HemeAutoSSMCV (RBC) [Entitic vol]79.6 fLLow80.0 - 100.0 fLFTMC HemeAutoSSPlatelet mean volume (Bld) [Entitic vol]7.7 fLNormal6.4 - 10.8 fLFTMC HemeAutoSSPlatelets (Bld) [#/Vol]264.0 E9/KIkdsen696.0 - 500.0 E9/LFTMC HemeAutoSSRBC (Bld) [#/Vol]4.0 E12/LLow4.3 - 5.9 E12/LFTMC HemeAutoSS WBC corrected for nucl RBC Auto (Bld) [#/Vol]5.7 E9/LNormal4.0 - 11.0 E9/LFTMC HemeAutoSSURINALYSISOrdered By: Courtney Case on 31-27-3174Tyhfvrtr LM Ql (Urine sed)Trace /HPFNormalTrace/HPFFTMC UA Auto SSBilirubin Ql (U)Negative (12/30/22 8:53 AM)NormalNegativeW[facility] [place] UA Auto SSClarity (U)Clear (12/30/22 8:53 AM)NormalClearFSELECT [facility] [place] Auto SSColor (U)Yellow (12/30/22 8:53 AM)NormalYellowWAGONER [facility] [place] UA Auto SSEpithelial cells.squamous LM.HPF (Urine sed) [#/Area]0-2 /HPFNormal0-2/HPFWAGONER [facility] [place] UA Auto SSGlucose Test strip (U) [Mass/Vol]Negative (12/30/22 8:53 AM)NormalNegativeW[facility] [place] UA Auto SSHemoglobin Ql (U)2+ *ABN* (12/30/22 8:53 AM)Invalid Interpretation CodeNegativeW[facility]ON[facility] [place] [facility]A Auto SSKetones (U) [Mass/Vol]Negative (12/30/22 8:53 AM)NormalNegativeW[facility] [place] UA Auto SSLithium.plasma/[place].RBC (Bld) [Mass ratio]4-20 /HPFNormal0-3/HPFWAGONER [facility] [place] UA Auto SSNitrite Ql (U)Negative (12/30/22 8:53 AM)NormalNegativeW[facility] [place]A Auto SSpH (U)6.0 *NA* (12/30/22 8:53 AM)Invalid Interpretation Code5.0 - 9.0[facility] UA Auto SSProtein (U) [Mass/Vol]Negative (12/30/22 8:53 AM)NormalNegativeW[facility] [place] UA Auto SSSpecific gravity (U) [Rel density] 1.025 *NA* (12/30/22 8:53 AM)Invalid Interpretation Code1.005 - 1.030[facility] UA Auto SSUA Spec DescClean Catch (12/30/22 8:53 AM)NormalWAGONER [facility] [place]A Auto SSUrobilinogen Qn (U)0.4636263 {Aspen'U}/dL Normal0.0 - 1.0 EU/dLWAGONER [facility] [place] UA Auto SSWBC Auto Ql (U)Negative (12/30/22 8:53 AM)NormalNegativeW[facility] [place] [facility]A Auto SSWBC LM.HPF (Urine sed) [#/Area]0-5 /HPFNormal0-5/HPFWAGONER [facility] [place] UA Auto SSOffice Visiton 68-67-2950Szwpmt-up [id number] Juhi Cope 1995 F Date Provider Department Center 12/05/2022 [id number], GINA [facility] W[facility] None Chart Close Cosign Required by: Opal Ross MD[VARUND] No family history on file Level of Service:88982 UT OFFICE/OUTPATIENT ESTABLISHED LOW MDM 20-29 MIN (GE,GC) Reason for Visit and Comments: Blood Pressure Check [299][facility] SHSProgress Noteon 27-22-6571Tfdcjdhf Note Attestation signed by Opal Ross MD [...] about 4 weeks (around 01/02/2023) for Visit .[facility] SHSProgress NoteVital signs BP 127/87 Weight 149.2lb Pulse 106 Temp 96.7NoCHI [facility] SHSProgress Noteon 95-43-1212Iwwqepup Note Late entry due to patient care. Resident Lacy notified of B.P 138/96 heart rate 119 around 1236 see flowsheet. Also notified checked in 1 hour via orders and B.P 143/87 pulse 111. Clarified if should check in 1 hour according to orders. . Also notified patient has discharge order in. Resident Lacy states No on rechecking. Ok to discharge. Will make patient aware.[facility] SHSProgress NotePOSTPARTUM VAGINAL DELIVERY POST DAY # [...] Name: DO Vanessa Zambrano DO 12/02/2022, 5:09 [facility]42on 48-26-21662240.5mm flanges given to patient. Encouraged her to call for observation of pump session and smaller flanges. Martha in NICU to assist with personal pump.[facility] CenterCARECOORDon 02-28-3615KSACJVWBY19 year old admitted for induction of labor [...] to home. Denies any concerns at this time.[facility] SHSProgress Noteon 56-92-1646Rfmcgget Note NOTE - VAGINAL DELIVERY POST DAY [...] with more than 50% of the total gmkg-dj-zhhc time of the visit in counseling/coordination of care. , 9:22 [facility] YDD57vq 46-71-959709Pswmd given to patient and educated how to use and to bring to infant [facility] ITW15Elsqjv pump use indicated for this pt. Due to: [facility] breast pump, supplies kit, swabs [...] pump Told patient to check with in [facility] for smaller flange sizesSt. 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 Bowden; Dr. Kramer Infant Information: Information for the patient's : Francie Cope [[id number]] Information for the patient's : Francie Cope [[id number]] Description: normal Meconium Noted: No Anesthesia: epidural [...] RUBELLAIGG Irina Kramer, DO 11/30/2022, 4:04 AMNCHI [facility] SHSProgress Noteon 38-32-2023Fctlirto NoteFoley catheter inserted by Andi Bacon RN, catheter drained and emptied for 900cc. Catheter secured to leg.[facility] SHSProgress NotePatient up to bathroom but remains unable to void. Bladder scan completed and reads >570. Sent secure message to Dr. Ruiz letting her know the above. Instructed to place chauhan catheter.[facility] HospitalProgress Note Secure message sent to Dr. Gamez stating patient is having difficulty voiding, patient's perineum is very swollen, and that patient was straight cathed for 950ml at noon. Received order for benadryl to help with swelling. [facility] HospitalProess NoteNutrition rescreen completed. Chart reviewed. Patient to be monitored and followed by the diet fire control technician. Suad Samuels, DTSt. [facility] SHSProgress NotePatient unable to void, last straight cathed at 0400. Bladder scan obtained for >928 ml, fundus +2 and shifted to right. Patient straight cathed on attempt x2 by Andi Bacon RN for 950cc. Will continue to monitor.[facility] SHSCAREPLNon 75-30-3203NGSGSNIYww patient will continue to make cervical change. Clotilde Mg, RNNoCHI [facility] SHSLaboratory - Hematology and Cell countsOrdered By: Lucrecia Cervantes on 64-70-6910Iktcrubdh (Bld) [#/Vol]386 10*3/uL140 - 440 10*3/uLSuthe surgical hospital at southwoods HealthPlatelets (Bld) [#/Vol]Ordered By: Lucrecia Cervantes on 14-88-4703Gwoisfhtbkvcpp and review of laboratory resultsNormal [facility]. agalactiae DNA TENA+probe Ql (Unsp spec)on 11-29-2022 Group B Strep ScreenNot detectedNot [facility] HealthInterpretation and review of laboratory resultsNoSelect Medical Specialty Hospital - Southeast OhioMethodology: real-time PCRSSioux Center HealthABO and Rh group Confirm Nom (Bld)on 30-67-2846XBY group Nom (Bld)OSumma HealthD Ag Ql (RBC)PositiveSumOhioHealth Hardin [facility] Hospital HealthBlood type and Crossmatch panel (Bld)on 30-30-2054QVT group Nom (Bld)OSumma HealthBlood group antibody screen GEL QlNegativeSumma HealthD Ag Ql (RBC)PositiveSumor Healthmma HealthCBC panel Auto (Bld)Ordered By: Lauren Ayers on 68-64-1428Mzkpijwuuxr distribution width (RBC) [Ratio]13.3 %11.5 - 14.5 %[facility] Hospitala HealthHematocrit (Bld) [Volume fraction]33.8 %Low35.0 - 47.0 %[facility] HealthHemoglobin (Bld) [Mass/Vol] 11.2 g/dLLow11.7 - 16.0 g/dLSumma HealthInterpretation and review of laboratory resultsAbnormalSSelect Medical Specialty Hospital - ColumbusH (RBC) [Entitic mass]28.0 pg26.0 - 34.0 pgSSelect Medical Specialty Hospital - ColumbusHC (RBC) [Mass/Vol]33.1 %32.0 - 36.0 %[facility] Hospitala HealthMCV (RBC) [Entitic vol]84.4 fL80.0 - 98.0 fLSumma HealthPlatelet mean volume (Bld) [Entitic vol]8.3 fL7.4 - 12.4 fLSumma HealthPlatelets (Bld) [#/Vol]319 10*3/uL140 - 440 10*3/uL [facility] HealthRBC (Bld) [#/Vol]4.00 10*6/uL3.8 - 5.20 10*6/uLSumma HealthWBC (Bld) [#/Vol]18.9 10*3/uLHigh3.6 - 10.7 10*3/uLSumma HealthTrinity Health System [facility] HealthComprehensive metabolic 1998 panelon 93-38-1485Epombqv [Mass/Vol]3.9 g/dL3.5 - 5.0 g/dLSumma HealthALP [Catalytic [...] HealthGFR/1.73 sq M.predicted MDRD (S/P/Bld) [Vol rate/Area]- [facility] Beach[facility] Medical CenterComment on above: Calculation based on the Chronic Kidney Disease Epidemiology Collaboration (CKD- EPI) equation refitwithout adjustment for raceGlucose [Mass/Vol]158 mg/lCPmwn57 - 100 mg/dLSumma HealthInterpretation and review of laboratory resultsAbnormal [facility] HealthPotassium [Moles/Vol]4.1 mmol/L3.5 - 5.1 mmol/LSumma HealthProtein [Mass/Vol]7.5 g/dL6.3 - 8.2 g/dLSumma HealthSodium [Moles/Vol]133 mmol/NBii683 - 145 mmol/LSumma HealthUrea nitrogen [Mass/Vol]5 mg/dLLow7 - 17 mg/dLSumma HealthSumma HealthLaboratory - Hematology and Cell countsOrdered By: Shruthi Fontana on 63-74-6646Gxbznwwzr (Bld) [#/Vol]335 10*3/uL140 - 440 10*3/uLSumma HealthPlatelets (Bld) [#/Vol]Ordered By: Shruthi Fontana on 11-28-2022 Interpretation and review of laboratory resultsNormWilson Health Health CHEMISTRYOrdered By: Talking Layers on 99-39-1653Kxqq T4 index Calc [Mass/Vol] 5.98 ng/dLNormal5.90 - [...] Code0.1 - 0.9 mg/dL FT RemisolChloride [Moles/Vol]102 mmol/HBigjgt794 - 111 mmol/LFTMC RemisolCO2 [Moles/Vol]18 mmol/LLow21 - 31 mmol/LFTMC RemisolCreatinine [Mass/Vol]0.6 mg/dL Normal0.5 - 1.3 mg/dLFTMC RemisolGFR/1.73 sq M.predicted among blacks MDRD (S/P/Bld) [Vol rate/Area]mL/min/1.73 w2Ywatfe>=59mL/min/1.73 m2FT[facility] Chem S GFR/1.73 sq M.predicted among non-blacks MDRD (S/P/Bld) [Vol rate/Area] mL/min/1.73 n9Jptott>=59mL/min/1.73 m2[facility] Chem SGlobulin (S) [Mass/Vol]4.0 g/dL Normal1.4 - 4.0 gm/dLWAGONER [facility] RemisolPotassium [Moles/Vol]3.7 mmol/LNormal3.5 - 5.3 mmol/LFTMC RemisolProtein [Mass/Vol]7.1 g/dLNormal6.0 - 7.8 gm/dLWAGONER [facility] [place] Remisol Sodium [Moles/Vol]132 mmol/DYfd607 - 145 mmol/LFTMC RemisolUrate [Mass/Vol]4.9 mg/dLNormal2.2 - 7.4 mg/dLWAGONER [facility] [place] RemisolUrea nitrogen [Mass/Vol]7 mg/dLNormal5 - 21 mg/dLWAGONER [facility] [place] RemisolCOAGULATIONOrdered By: Amairani Jenkins on 47-24-1091mYEZ Coag (PPP) [Time]25.3 dWpaeat82.1 - 36.5 second(s)[facility] Auto Coag Fibrin+Fibrinogen fragments (S) [Mass/Vol]>10 and <40 *ABN* (11/27/22 3:14 PM)Invalid Interpretation Code<10[facility] Man SeroFibrinogen Coag (PPP) [Mass/Vol]539 mg/hEJfah651 - 393 mg/dLWAGONER COMM[facility]ITY [facility] [place] Auto CoagINR Coag (PPP) [Relative time]0.9 {INR}Invalid Interpretation CodeWAGONER [facility] [place] Auto CoagPT Coag (PPP) [Time]10.1 sNormal9.4 - 12.5 second(s)[facility] Auto CoagHEMATOLOGYOrdered By: Raquel Arteaga on 43-68-8419Vkriymdmnar distribution width (RBC) [Ratio]12.9 %Rexbfg95.9 - 14.2 % [facility] HemeAutoSSHematocrit (Bld) [Volume fraction]34.2 %Qrwmrd90.0 - 46.0 %[facility] HemeAutoSSHemoglobin (Bld) [Mass/Vol]11.0 g/dLLow12.0 - 16.0 gm/dLWAGONER [facility] HemeAutoSSMCH (RBC) [Entitic mass]27.3 sxLrgamg48.0 - 34.0 pgFTMC HemeAutoSSMCHC (RBC) [Mass/Vol]32.3 g/rBTrxrwp87.4 - 36.0 gm/dLFT HemeAutoSSMCV (RBC) [Entitic vol]84.6 iBJsmexb72.0 - 100.0 fLFT HemeAutoSSPlatelet mean volume (Bld) [Entitic vol]8.2 fLNormal6.4 - 10.8 fLFT HemeAutoSSPlatelets (Bld) [#/Vol]273.0 E9/WHulsgw697.0 - 500.0 E9/LFC HemeAutoSSRBC (Bld) [#/Vol]4.0 E12/LLow4.3 - 5.9 E12/LFSELECT [facility] [place] [facility] [place] HemeAutoSSWBC corrected for nucl RBC Auto (Bld) [#/Vol]15.7 E9/LHigh4.0 - 11.0 E9/LFC HemeAutoSSComment on above:Result Comment: Slide reviewed by ts Unable to obtain accurate platelet count due to platelet clumping. Platelet count estimate appears normal on slide..URINALYSISOrdered By: Amairani Jenkins on 56-81-2480Aolgnafdq Ql (U)Negative (11/27/22 1:55 PM)NormalNegativeWAGON[facility] [place] UA Auto SSClarity (U)Clear (11/27/22 1:55 PM)NormalClearFSELECT [facility] [place] Auto SSColor (U)Yellow (11/27/22 1:55 PM)NormalYellowFT UA Auto SSEpithelial cells.squamous LM.HPF (Urine sed) [#/Area]3-4 /HPFNormal0-2/HPFFTMC UA Auto SSGlucose Test strip (U) [Mass/Vol]Negative (11/27/22 1:55 PM)NormalNegativeW[facility] [place] UA Auto SSHemoglobin Ql (U)1+ *ABN* (11/27/22 1:55 PM)Invalid Interpretation CodeNegativeFT UA Auto SSKetones (U) [Mass/Vol]Negative (11/27/22 1:55 PM)NormalNegativeW[facility]ON[facility] [place] UA Auto SSLithium.plasma/[place].RBC (Bld) [Mass ratio]4-20 /HPFNormal0-3/HPFWAGONER [facility] [place] UA Auto SSNitrite Ql (U)Negative (11/27/22 1:55 PM)NormalNegativeW[facility] [place] U[facility] Auto SSpH (U)6.5 *NA* (11/27/22 1:55 PM)Invalid Interpretation Code5.0 - 9.0[facility] UA Auto SSProtein (U) [Mass/Vol]Negative (11/27/22 1:55 PM)NormalNegativeW[facility]ON[facility] [place] UA Auto SSSpecific gravity (U) [Rel density] 1.010 *NA* (11/27/22 1:55 PM)Invalid Interpretation Code1.005 - 1.030[facility] UA Auto SSUA Spec DescClean Catch (11/27/22 1:55 PM)NormalWAGONER [facility] [place] UA Auto SSUrobilinogen Qn (U)0.0011410 {Aspen'U}/dL Normal0.0 - 1.0 EU/dLWAGONER COMM[facility]ITY [facility] [place] UA Auto SSWBC Auto Ql (U)Negative (11/27/22 1:55 PM)NormalNegativeW[facility]ON[facility] [place] UA Auto SSWBC LM.HPF (Urine sed) [#/Area]0-5 /HPFNormal0-5/HPFWAGONER [facility] [place] UA Auto SSCHEMISTRYOrdered By: SYSTEM SYSTEM on 07-14-2022 Albumin [Mass/Vol]3.6 g/dLNormal3.3 - 5.0 gm/dLWAGONER [facility] [place] RemisolAlbumin/Globulin [Mass ratio]1.1 {ratio}Normal1.1 - 2.2FTMC RemisolALP [Catalytic activity/Vol]41 [iU]/kHgbido27 - 98 Int._Unit/LFTMC RemisolALT No additional P-5'-P [Catalytic activity/Vol]19 [iU]/dNormal6 - 46 Int._Unit/LFTMC RemisolAnion gap [Moles/Vol] 11 mmol/LNormal6 - 16 mEq/LFTMC RemisolAST [Catalytic activity/Vol]21 [iU]/d Normal5 - 43 Int._Unit/LFTMC RemisolBilirubin [Mass/Vol]0.7 mg/dLNormal0.0 - 1.1 mg/dLWAGONER [facility] [place] RemisolBilirubin.direct [Mass/Vol]0.1 mg/dLNormal0.1 - 0.4 mg/dLFTMC RemisolBilirubin.indirect [Mass or moles/Vol]0.6 mg/dLNormal0.1 - 0.9 mg/dLFTMC RemisolCalcium [Mass/Vol]8.9 mg/dLNormal8.9 - 11.1 mg/dLFTMC RemisolChloride [Moles/Vol]107 mmol/FTheuef788 - 111 mmol/LFTMC RemisolCO2 [Moles/Vol]22 mmol/L Njqxss84 - 31 mmol/LFTMC RemisolCreatinine [Mass/Vol]0.6 mg/dLNormal0.5 - 1.3 mg/dLFT[facility] RemisolGFR/1.73 sq M.predicted among blacks MDRD (S/P/Bld) [Vol rate/Area]mL/min/1.73 g0Nxtntw>=59mL/min/1.73 m2[facility] Chem SGFR/1.73 sq M.predicted among non-blacks MDRD (S/P/Bld) [Vol rate/Area]mL/min/1.73 e4Ayrwbc >=59mL/min/1.73 m2[facility] Chem SGlobulin (S) [Mass/Vol]3.3 g/dLNormal1.4 - 4.0 gm/dLFT[facility] RemisolGlucose [Mass/Vol]99 mg/dFWlsepi57 - 199 mg/dLFT[facility] Remisol Potassium [Moles/Vol]3.5 mmol/LNormal3.5 - 5.3 mmol/LFT[facility] RemisolProtein [Mass/Vol]6.9 g/dLNormal6.0 - 7.8 gm/dLFT[facility] RemisolSodium [Moles/Vol]136 mmol/L Gjssgp897 - 145 mmol/LFTMC RemisolUrea nitrogen [Mass/Vol]8 mg/dLNormal5 - 21 mg/dLFT[facility] RemisolUrea nitrogen/Creatinine [Mass ratio]13 mg/ccNmxvbn39 - 20FT[facility] RemisolHEMATOLOGYOrdered By: SYSTEM SYSTEM on [id number]/100 WBC (Bld) 0.3 %Normal0.0 - 2.0 %[facility] [...] 7.5 E9/LFTMC HemeAutoSSHEMATOLOGYOrdered By: Teena Quiroz on [id number] distribution width (RBC) [Ratio]12.9 %Normal 10.9 - 14.2 %[facility] HemeAutoSSHematocrit (Bld) [Volume fraction]33.6 %Low34.0 - 46.0 %[facility] HemeAutoSSHemoglobin (Bld) [Mass/Vol]11.5 g/dLLow12.0 - 16.0 gm/dL [facility] HemeAutoSSMCH (RBC) [Entitic mass]28.5 jfOrwguv43.0 - 34.0 pgFTMC HemeAutoSSMCHC (RBC) [Mass/Vol]34.1 g/pVZdbnam56.4 - 36.0 gm/dLFTMC HemeAutoSS MCV (RBC) [Entitic vol]83.5 wJFmgxji34.0 - 100.0 fLFTMC HemeAutoSSPlatelet mean volume (Bld) [Entitic vol]8.1 fLNormal6.4 - 10.8 fLWAGONER [facility] [place] HemeAutoSSPlatelets (Bld) [#/Vol]271.0 E9/YPtjnqw463.0 - 500.0 E9/[facility] HemeAutoSSRBC (Bld) [#/Vol] 4.0 E12/LLow4.3 - 5.9 E12/[facility] HemeAutoSSWBC corrected for nucl RBC Auto (Bld) [#/Vol]13.9 E9/LHigh4.0 - 11.0 E9/[facility] HemeAutoSSURINALYSISOrdered By: Deirdre Gilliam on [id number] LM Ql (Urine sed)Trace /HPFNormalTrace/HPFWAGONER [facility] [place] UA Auto SSBilirubin Ql (U)Negative (07/14/22 5:00 AM)NormalNegativeWAGONER [facility] [place] Auto SSClarity (U)Clear (07/14/22 5:00 AM)NormalClearFSELECT [facility] [place] Auto SSColor (U)Yellow (07/14/22 5:00 AM)NormalYellowWAGONER COMMUNITY [facility] [place] Auto SSEpithelial cells.squamous LM.HPF (Urine sed) [#/Area]3-4 /HPFNormal0-2/HPFWAGONER [facility] [place] Auto SSGlucose Test strip (U) [Mass/Vol]Negative (07/14/22 5:00 AM)NormalNegativeWAGONER [facility] [place] [facility] Auto SSHemoglobin Ql (U)Trace *ABN* (07/14/22 5:00 AM)Invalid Interpretation CodeNegativeWAGONER COMMUNITY [facility] [place] Auto SSKetones (U) [Mass/Vol]Negative (07/14/22 5:00 AM)NormalNegativeWAGONER [facility] [place]A Auto SSLithium.plasma/[place].RBC (Bld) [Mass ratio]0-3 /HPFNormal0-3/HPFWAGONER [facility] [place] Auto SSMucus Ql (Urine sed)Trace (07/14/22 5:00 AM)NormalWAGONER [facility]ITY [facility] [place] Auto SSNitrite Ql (U)Negative (07/14/22 5:00 AM)NormalNegativeWAGONER [facility] [place] Auto SSpH (U)6.0 *NA* (07/14/22 5:00 AM)Invalid Interpretation Code5.0 - 9.0W[facility] [place] Auto SSProtein (U) [Mass/Vol]Negative (07/14/22 5:00 AM)NormalNegativeWAGONER [facility]ITY [facility] [place]A Auto SSSpecific gravity (U) [Rel density] 1.020 *NA* (07/14/22 5:00 AM)Invalid Interpretation Code1.005 - 1.030[facility] [place] [place] Auto SSUA Spec DescClean Catch (07/14/22 5:00 AM)NormalW[facility]ONER [facility] [place] [facility] Auto SSUrobilinogen Qn (U)0.0904753 {Aspen'U}/dLNormal0.0 - 1.0 EU/dLWAGONER COMMUN[facility] [place] [facility] Auto SSWBC Auto Ql (U)Negative (07/14/22 5:00 AM)NormalNegativeWAGONER COMMUN[facility] [place] [facility] Auto SSWBC LM.HPF (Urine sed) [#/Area]0-5 /HPFNormal0-5/HPFWAGONER COMMUN[facility] [place] [facility] Auto SSCHEMISTRYOrdered By: SYSTEM SYSTEM on 80-94-4222Yyqibag [Mass/Vol]4.4 g/dLNormal3.3 - 5.0 gm/dLFTMC Remisol Albumin/Globulin [Mass ratio]1.1 {ratio}Normal1.1 - 2.2[facility] RemisolALP [Catalytic activity/Vol]64 [iU]/qNuqhnp28 - 98 Int._Unit/LFTMC RemisolALT No additional P-5'-P [Catalytic activity/Vol]107 [iU]/dHigh6 - 46 Int._Unit/LFTMC RemisolAST [Catalytic activity/Vol]63 [iU]/dHigh5 - 43 Int._Unit/LFTMC Remisol Bilirubin [Mass/Vol]1.5 mg/dLHigh0.0 - 1.1 mg/dLFTMC RemisolBilirubin.direct [Mass/Vol]0.2 mg/dLNormal0.1 - 0.4 mg/dLFTMC RemisolBilirubin.indirect [Mass or moles/Vol]1.3 mg/dLHigh0.1 - 0.9 mg/dLFTMC RemisolCholesterol [Mass/Vol]193 mg/gJHjuycr502 - 200 mg/dLFTMC RemisolCholesterol in HDL [Mass/Vol]64 mg/dL Invalid Interpretation CodeFTMC RemisolCholesterol in LDL [Mass/Vol]116 mg/dL Normal<=129mg/dLFTMC RemisolCholesterol in VLDL [Mass/Vol]13 mg/dLNormal7 - 40 mg/dLFTMC RemisolGlobulin (S) [Mass/Vol]3.9 g/dLNormal1.4 - 4.0 gm/dLFTMC RemisolProtein [Mass/Vol]8.3 g/dLHigh6.0 - 7.8 gm/dLFTMC RemisolTriglyceride [Mass/Vol]67 mg/dLNormal<=149mg/dLFTMC RemisolCOAGULATIONOrdered By: Courtney Case on 66-92-5006[facility] Coag (PPP) [Relative time]1.0 {INR}Invalid Interpretation Code [facility] Auto CoagPT Coag (PPP) [Time]12.4 aAjmuyj70.2 - 12.9 second(s)[facility] Auto CoagHEMATOLOGYOrdered By: SYSTEM SYSTEM on 93-50-3509Tjurqrmrn/100 WBC (Bld)0.7 %Normal0.0 - 2.0 %[facility] HemeAutoSSBasophils/Leukocytes Auto (Bld) [Pure # fraction]0.0 E9/LNormal0.0 - 0.2 E9/LFTMC HemeAutoSSEosinophils/100 WBC (Bld)3.2 %Normal0.0 - 8.0 %[facility] HemeAutoSSEosinophils/Leukocytes Auto (Bld) [Pure # fraction]0.2 E9/LNormal0.0 - 0.5 E9/LFTMC HemeAutoSSLymphocytes/100 WBC (Bld) 31.9 %Nhrsru52.0 - 50.0 %[facility] HemeAutoSSLymphocytes/Leukocytes Auto (Bld) [Pure # fraction]1.9 E9/LNormal1.0 - 4.0 E9/LFTMC HemeAutoSSMonocytes/100 WBC (Bld)9.1 %Normal4.0 - 14.0 %[facility] HemeAutoSSMonocytes/Leukocytes Auto (Bld) [Pure # fraction]0.5 E9/LNormal0.2 - 1.0 E9/LFTMC HemeAutoSSNeutrophils/100 WBC (Bld) 55.1 %Hojfnw85.0 - 75.0 %[facility] HemeAutoSSNeutrophils/Leukocytes Auto (Bld) [Pure # fraction]3.3 E9/LNormal2.0 - 7.5 E9/LFTMC HemeAutoSSHEMATOLOGYOrdered By: Chivo Ward on 85-75-3453Urnvzmcuaan distribution width (RBC) [Ratio]12.9 % Zqozmg31.9 - 14.2 %[facility] HemeAutoSSHematocrit (Bld) [Volume fraction]40.1 %Normal 34.0 - 46.0 %[facility] HemeAutoSSHemoglobin (Bld) [Mass/Vol]13.2 g/oOIbvxlt30.0 - 16.0 gm/dLFTMC HemeAutoSSMCH (RBC) [Entitic mass]27.7 hrIazmny24.0 - 34.0 pgFTMC HemeAutoSSMCHC (RBC) [Mass/Vol]32.8 g/bNFgqgnn61.4 - 36.0 gm/dLFTMC HemeAutoSS MCV (RBC) [Entitic vol]84.3 jHRofpff98.0 - 100.0 fLFTMC HemeAutoSSPlatelet mean volume (Bld) [Entitic vol]8.5 fLNormal6.4 - 10.8 fLFTMC HemeAutoSSPlatelets (Bld) [#/Vol]299.0 E9/ERfevye425.0 - 500.0 E9/LFTMC HemeAutoSSRBC (Bld) [#/Vol] 4.8 E12/LNormal4.3 - 5.9 E12/LFTMC HemeAutoSSWBC corrected for nucl RBC Auto (Bld) [#/Vol]5.9 E9/LNormal4.0 - 11.0 E9/LFC HemeAutoSSLMPon 21-78-4285Uwtj risk assessmenta) No falls within the last lbtlPC-XNNFZ-Cqmhrt 320 Work Phone: Last menstrual period start liyyboxhueHV-PTPQJ-Aheitz 320 Work Phone: Tobacco use status CPHSb) QfEM-TUUDG-Lhwqfo 320 Work Phone: OB/MAINTENANCE CRAFTSMAN - Office Visiton 23-78-5131DJ/MAINTENANCE CRAFTSMAN - Office VisitDiagnoses/Problems Assessed Endometriosis (617.9) (N80.9) Orders Start: Orilissa 200 MG Oral Tablet; take 1 tablet by mouth twice a day Provider Impressions 26 yo 1. endometriosis: discussed options continue norethindrone rx'd orilissa 200 mg bid rtc in 3 months Chief Complaint patient here to discuss pain related to endometriosis, declined box strapper. 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 History of Present Tdluavp44 yo presents as a follow up for [...] again engaged x 1 year working at [employer] [place] Review of Systems Constitutional: no fever, no [...] hours Vitals Vital Signs Recorded: 09Feb2022 11:41AM Prrfqlaw489 Shblrdqnr93 Height5 ft 2 in Mxuhfc181 lb BMI Tfexemixwm82.51 kg/m2 BSA Calculated1.61 Tobacco Useb) No Fall [...] NormalUH TouchworksXR KNEE LEFT (MIN 4 VIEWS)on 79-48-8065NZ KNEE LEFT (MIN 4 VIEWS)EXAM: XR KNEE [...] Joe Lopez MD 09/29/21 Final resultNormalMercy Marcin [facility] SsdOB/MAINTENANCE CRAFTSMAN - Office Visiton 11-92-5493EQ/MAINTENANCE CRAFTSMAN - Office VisitDiagnoses/Problems Assessed Anxiety (300.00) (F41.9) Orders Start: FLUoxetine HCl - 20 MG Oral Capsule; TAKE 1 CAPSULE Daily Provider Impressions 26 yo 1. endometriosis - discussed treatment options rx'd Prozac for mood rx'd norethindrone rtc in 3 months Chief Complaint patient to follow up on medication from last visit in march 2021, declined box strapper. 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 History of Present Xnsntuy89 yo with endometriosis was on norethindrone d/c'd [...] Every 6 hours Vitals Vital Signs Recorded: 38Gtx8198 01:19PM Wgqlomnz362 Umlhttmgh48 Height5 ft 2 in Ewrmyy586 lb BMI Nfgegsfgqg83.58 kg/m2 BSA Calculated1.53 Tobacco Useb) No Fall Screeninga) No falls within the last year BPJ20Mxo6615 Pain Scale0 Signatures Electronically signed by : Charlene Rodriguez DO; Jun 03 2021 10:55AM EST (Author) NormalUH TouchworksChlamydia sp identified Org specific cx Nom (Genital specimen)Ordered By: Jackelyn Dela Cruz on 77-28-1579Ijpnyvew Chlamydia Screen NegativeNegativeSumor HealthHBV surface Ag IA Qlon 67-70-6226Yubdciqq Hepatitis B Surface AgNegativeNegative, None DetectedSumma HealthHIV 1+2 Ab and HIV1 p24 Ag IA.rapid Nom (S/P/Bld)on 11-49-2206NRR-1/HIV-2 AbNegativeSumma HealthNo Panel Informationon 93-88-2697Ltdxfupj Gonorrhea ScreenNegativeNegativeSumma Health External Rubella IGG QuantitationPositiveSumma HealthSumma HealthNo Panel InformationOrdered By: Jackelyn Dela Cruz on 66-34-2923Oxmrg HealthReagin Ab RPR Ql (S)on 30-27-7751Wcglsxtg RPRNon-ReactiveBorderline, Nonreactive, Weakly Reactive, EquivocalSumma HealthOB/MAINTENANCE CRAFTSMAN - Office Visiton 88-84-9853GA/MAINTENANCE CRAFTSMAN - Office VisitDiagnoses/Problems Assessed Endometriosis (617.9) (N80.9) Never smoker Orders Stop: Norethindrone Acetate 5 MG Oral Tablet Tobacco Use Screening; Status:Complete; Done: 71Zpt9820 Provider Impressions 26 yo 1. endometriosis: rx'd norethindrone referral to pelvic floor PT rtc in 3-6 months if continues to have pain, will consider centrally acting neuromodulator Chief Complaint Patient presents today for f/u for endometriosis PAP per patient 2019 WNL Infrastructure Engineer declined -CATY,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 LMP 04/11/21 History of Present Xpncjsw15 yo with endometriosis bleeding once per month, [...] DO; Apr 20 2021 11:04AM EST (Author) [facility] TouchworksTobacco Screening.on 76-72-5288Hvgl risk assessmenta) No falls within the last kktjJK-AFERI-Yabduf 320 Work Phone: Lasj menstrual period start kgje06Gzq6122 WB-KWQFY-Pzjofr 320 Work Phone: Tobacco Screening.b) QuHE-GVQKJ-Ivttzz 320 Work Phone: Radiologyon 40-11-4952VS Kidney - bilateralNormal YM-Evatfzl-Nghpedubn Work Phone: us RENAL BILATon 86-59-1477VM RENAL BILATMRN: [id number] Patient Name: JUHI COPE STUDY: US RENAL BILAT; 04/14/2021 1:14 pm INDICATION: Recurrent UTI. COMPARISON: None. ACCESSION NUMBER(S): [id number] ORDERING CLINICIAN: TERI CHAU TECHNIQUE: Multiple images [...] ultrasound. Electronically signed by: GENEVIEVE CAR STUPIN, MDSt. Christopher's Hospital for [facility] Office Visit (Urology)on 10-09-5212Fuihax-up visitDiagnoses/Problems Assessed Recurrent UTI (599.0) (N39.0) Orders Recurrent UTI Start: Nitrofurantoin Monohyd Macro 100 MG Oral Capsule; TAKE 1 CAPSULE Other Please take one capsule after sexual intercourse to prevent UTI Rx By: Teri Chau; Dispense: 30 Days ; #:30 Capsule; Refill: 11;For: Recurrent UTI; ROSY = N; Verified Transmission to [facility] Ultrasound Kidney Bilateral; Status:Hold For - Scheduling; Requested for:61Eov3244; Perform:[facility]; Due:68Hly1324; Last Updated By:Isela Terrazas; 04/01/2021 9:16:17 AM;Ordered; [...] UTI; ROSY = N; [place] [address] Provider Impressions 26 year old female with history of endometriosis presents today via telehealth as a new patient forevaluation of recurrent UTIs. She reports getting UTIs at least once per month, noting occasional nocturia. Symptoms include burning, frequency, and back pain. She states that some UTIs are related to sexual intercourse but most are not. Patient reports she saw Dr. Booth at [facility] in [place], noting she was only treated with medications and urethral dilation for a supposed stricture.Denies gross hematuria. Patient is a non-smoker. Urine culture from [facility] on 03/04/21 was positive for E. [...] NPV - recurrent UTI History of Present Ovhcytc78 year old female with history of endometriosis presents today via telehealth as a new patient for evaluation of recurrent UTIs. She reports getting UTIs at least once per month, noting occasional nocturia. Symptoms include burning, frequency, and back pain. She states that some UTIs are related to sexual intercourse but most are not. Patient reports she saw Dr. Booth at [facility] in [place], noting she was only treated with medications [...] content not included)...NormalUH TouchworksNM GASTRIC EMPTYING SOLIDon 58-48-5401XH GASTRIC EMPTYING SOLID* * *Final Report* * * DATE OF EXAM: Nov 05 2020 12:26PM [facility] 0017 - NM GASTRIC [...] 4 HOURS IS CONSISTENT WITH MILD GASTROPARESIS. Music Librarian: PSCB Transcribe Date/Time: Nov 05 2020 1:09P Dictated by : SIDDHARTH PEREA MD This examination was interpreted and the report reviewed and electronically signed by: SIDDHARTH PEREA MD on Nov 05 2020 1:24PM EST [id number] Ford Jackson HospitalANES POSTPROC EVALon 27-98-6465QBYI POSTPROC EVALHNO ID: [id number] Author: Austin Story Service: ? Author Type: [...] October 25, 2020 TIME: 2:52 PM CSN: [id number] HospitalANES PRE-OPon 63-26-3697PLVF PRE-OPHNO ID: [id number] Author: Austin Story Service: ? Author Type: [...] October 25, 2020 TIME: 1:08 PM CSN: [id number] [facility] PATHOLOGYon 10-25-2020 SURGICAL PATHOLOGYSpecimen originated from [facility] Specimen #: [id number] Submitting Physician: MALCOLM CRUZ MD FINAL DIAGNOSIS 1. Small bowel, biopsy (A) - Small bowel mucosa with no pathologic diagnostic abnormality; negative for celiac disease, granulomas and dysplasia. 2. Stomach, biopsy (B) - Gastric oxyntic-type mucosa with no pathologic diagnostic abnormality; see comment. /[facility] 10/26/2020 COMMENT 2. No microorganisms [...] in one cassette. Gross examination performed at [facility], [address] [place] [address] 10/25/2020 7:59:40 PM Date of Report: 10/26/2020 Date of Procedure: 10/25/2020 Date of Receipt: 10/25/2020 Submitted by: MALCOLM CRUZ MD Location: AV[facility] Diagnostic interpretation performed at [facility], [address] [place] [address]. [place] Number: [id number] Clinic Reference LabComment on above:Performed By: #### S #### See report for performing lab information.SURGICAL PATHOLOGYSpecimen originated from [facility] Specimen #: [id number] Submitting Physician: MALCOLM CRUZ MD FINAL DIAGNOSIS 1. Small bowel, biopsy (A) - Small bowel mucosa with no pathologic diagnostic abnormality; negative for celiac disease, granulomas and dysplasia. 2. Stomach, biopsy (B) - Gastric oxyntic-type mucosa with no pathologic diagnostic abnormality; see comment. /[facility] 10/26/2020 COMMENT 2. No microorganisms [...] in one cassette. Gross examination performed at [facility], [address] [place] [address] EJL 10/25/2020 7:59:40 PM Date of Report: 10/26/2020 Date of Procedure: 10/25/2020 Date of Receipt: 10/25/2020 Submitted by: MALCOLM CRUZ MD Location: AV[facility] Diagnostic interpretation performed at [facility], [address] [place] [address]. [place] Number: [id number] Health Richmond/ GROUP TESTon 97-91-4080CBI [facility] Memorial HospitalComment on above: Performed By: #### VERAB #### [facility] [address] [place], [place] [address]QL TYPEPositiveLafayette General Medical CenterComment on above: Performed By: #### VERAB #### [facility] [address] [place], [place] [address]Xfnqq Surgical Pathology Departmenton 15-65-4080Vvoik Surgical Pathology DepartmentName JUHI COPE Pathologist: ASHLEY HURTADO MD Date of Procedure: 09/01/2020 Date Received: 09/01/2020 Date Reported 09/03/2020 Submitting Physician: CHARLENE RODRIGUEZ D.O. Location: [facility] External # FINAL DIAGNOSIS A. LEFT [...] D. Right pelvic sidewall peritoneum are 2 bvnn-vxu-dhe, irregular fragments of tissue measuring 1.3 x [...] in toto in one cassette. SB amisha/09/02/2020 [facility] Department of Pathology [address] [place], [place] [address]BqtrfbDJCone Health Alamance RegionalComment on above:Performed By: #### [facility] #### [facility] Surgical Pathology Department [address] [facility] [address]Xonedtg and Physical - Surgery > 30 dayson 64-86-8793Asqrjye and Physical - Surgery > 30 daysHistory [...] T&S: O+, COVID-19: negative OB Hx: None. Head Of Marketing Adometry Hx: As above. PMHx: endometriosis Surg Hx: diagnostic laparoscopy, appendectomy (2016) Meds: Meloxicam, Pulaski-Linyah, Norethindrone acetate Social Hx: No tobacco, no [...] the note. I personally evaluated the patient pv21-Vic-7801 Attending Provider Inpatient Certification StatementObservation patient/other outpatient visits Electronic Signatures: Charlene Rodriguez () (Signed 01-Sep-2020 10:04) Authored: Note Completion Co-Signer: History of Present Illness, Home Medication Review, Impression/Procedure, ERAS, Physical Exam, Consent, Note Completion Chelsie Leal ( (Resident)) (Signed 31-Aug-2020 15:44) Authored: History of Present Illness, Home Medication Review, Impression/Procedure, ERAS, Physical Exam, Consent, Note Completion Last Updated: 01-Sep-2020 10:04 by Charlene Rodriguez ()L[facility] Medical CenterHomegoing Instructionson 34-31-7892Scqiqnovk InstructionsAdditional Instructions: Handouts Given: Topic 1Anesthesia Homegoing Instructions Topic 2Surgical Site Infection Handout Topic 3New Medication Education Topic 4Suggamedex handout Electronic Signatures: Aminata Gomez (DIALLO) (Signed 01-Sep-2020 16:07) Authored: Additional Instructions Last Updated: 01-Sep-2020 16:07 by Aminata Gomez (DIALLO)[facility] Medical CenterPatient Profile - Preop v2on 45-47-6965Qsznsrc Profile - Preop h6Xvedwgs: Initial Info: How to be Addressedalexis Spoken Language PreferredEnglish Are you currently using the Personal Electronic Health Record or Shutl Stated Reason for Admissionseeing if my endometriosis is back Primary Contact Name and Numberlogan [phone] Patient Belongingsclothing locker glasses with bf Medications Brought to Hospitalno General Health: Weight in kg55.6 kilogram(s) Weight in hdb354.5 pound(s) Weight Methodactual (measured) Scale Typestanding Height [...] Arrangementshouse Lives Withparent(s) Resource/Environmental Concernsnone [place] Anticipated at Transitionnone Substance: Current or [...] Learning Preferencesverbal instruction Cultural Considerationsnone Developmental Considerationsnone Anabaptist Considerationsnone Other learner availableno Falls RiskPatient location [...] Physical - Surgery > 30 days 01-Sep-2020 03:42L[facility] General Medical CenterPreop Checkliston 54-44-2538Oyqek Checklist Preop Checklist: Preop Checklist: Arrival Umqw83-Gwp-2171 Arrival Time12:30 Procedure Typelaparoscopic endometriosis excision NPO Pbsxad01-Nlz-7383 00:00 ID Band Onyes Allergy Bandno known [...] Last Updated: 01-Sep-2020 12:35 by Sierra Kraft (RN)[facility] Medical CenterANTIBODY IDENT.on 34-86-5699XVJJPDLL IDENT.SEE BELOWNormCone Health Alamance RegionalComment on above:Result Comment: NO CLINICALLY SIGNIFICANT ANTIBODIES IDENTIFIED.Performed By: #### ABID #### [facility] [address] [place], [place] [address]RVWad 88-22-2770Mhaazujotee distribution width (RBC) [Ratio] 12.1 %Jpnhby69.5 - 14.5Essex County HospitalComment on above:Performed By: #### CBC #### [facility] [address] [place], [place] [id number] (Bld) [Volume fraction]39.6 %Dbaava36.0 - 46.0Es[facility] County HospitalComment on above:Performed By: #### CBC #### [facility] [address] [place], [place] [id number] (Bld) [Mass/Vol]12.6 g/vLRfmjwv00.0 - 16.0Es[facility] County HospitalComment on above:Performed By: #### CBC #### [address] [id number] (RBC) [Mass/Vol]31.8 g/dLLow32.0 - 36.0Es[facility] County HospitalComment on above:Performed By: #### CBC #### [address] [id number] (RBC) [Entitic vol]90 nEOzeqkn00 - 100Essex County HospitalComment on above:Performed By: #### CBC #### [address] [id number] (Bld) [#/Vol]333 10*3/xMTvcqco738 - 450Es[facility] County HospitalComment on above:Performed By: #### CBC #### [address] [id number] x10E12/LNormal4.00 - 5.20[facility] Comment on above:Performed By: #### CBC #### [address] [id number] (Bld) [#/Vol]5.6 10*3/uLNormal4.4 - 11.3Es[facility] County HospitalComment on above:Performed By: #### CBC #### [address] [id number] 2019, SCREEN ASYMPTOMATICon 34-61-7474KPHF-CoV-2 (COVID-19) RNA TENA+probe Ql (Unsp spec)Not detectedNormalNot DetectedEssex County HospitalComment on above:Result Comment: This assay is [...] patient management decisions. Fact sheet for providers: https://www.fda.gov/media/714726/download Fact sheet for patients: https://www.fda.gov/media/974944/download This test has received FDA Emergency Use Authorization (EUA) and has been verified by [facility] ([facility]). This test is only authorized for the duration of time that circumstances exist to justify the authorization of the emergency use of in vitro diagnostic tests for the detection of SARS-CoV-2 virus and/or diagnosis of COVID-19 infection under section 564(b)(1) of the Act, 21 U.S.C. 360bbb-3(b)(1), unless the authorization is terminated or revoked sooner. [facility] is certified under CLIA-88 as qualified to perform high complexity testing. Testing is performed in the [facility] laboratories located at [address] [place] [address].Performed By: #### COVSC #### [place], [place] [address]Lab Specimen SourceNasal, NasopharyngealNoNorthern Colorado Rehabilitation HospitalComment on above:Performed By: #### COVSC #### [place], [place] [address]TYPE + SCREENon 80-60-1945CFS [facility] GENERALONoCone Health Annie Penn HospitalComment on above:Performed By: #### T+S #### [facility] [address] [place], [place] [address]IS TYPEPositiveLafayette General Medical CenterComment on above: Performed By: #### T+S #### [facility] [address] [place], [place] [address]WMW TYPECanceledSandstone Critical Access HospitalComment on above:Order Comment: TEST TYPE + SCREEN WAS CANCELLED, 08/30/2020 13:37 JOP. Performed By: #### T+S #### [facility] [address] [place], [place] [address]DB TYPECanceledNormLincoln Community HospitalComment on above:Order Comment: TEST TYPE + SCREEN WAS CANCELLED, 08/30/2020 13:37 JOP. Performed By: #### T+S #### [facility] [address] [place], [place] [address]DVDIni 73-43-8763KAFNVeeittv:Juhi Cope MRN: Height:5' 2 (1.575 m) Weight:120 [...] for the following basenames: K,HCT Progress Notes ([facility] REJ AV4): Jaquelin Wesley Ma 10/19/2020 2:35 [...] 1 10 oz. Bottle of Magnesium Citrate (Lemon/Habematolel) ? A test for COVID 19 test [...] toast without seeds (not multigrain); pretzels; waffles, Uzbek toast and pancakes; white rice, noodles, pasta, macaroni, peeled cooked potatoes; Special K, Rice Krispies or Axtell Flakes cereals; ripe bananas; melons (except watermelon [...] carbonated beverages such as chi aislinn or lemon-new koliganek soda; Gatorade? or other sports drinks (not [...] make sure you have a responsible adult taxi driver supervisor to take you home after procedure. Due to having sedation, you may not drive the rest of the day. ? If you need to reschedule, please call [phone] ?Date/Provider Dr Cruz Procedure:colonoscpy Facility:[facility] Prep ordered( if aware):miralax Knowledge of prep instructions:posted to [facility] Diabetic:no Blood Thinners:no Pacemaker with defibrillator:no left message for patient to return call. Nurse triage please give below message. PLEASE READ PATIENT INSTRUCTIONS BELOW. THANK YOU.[facility] on 98-29-0723PVKCONEVTSN ID: [id number] Author: Leon Perkins (Rt) Fito Blanchard Service: Radiology Author Type: Wire Coating Operator Metal Type: Progress Notes Filed: 07/29/2020 11:06 AM [...] Medical CenterXR ABD 2V SUPINE W UPR/DECUB/CTLon 74-71-0910RO ABD 2V SUPINE W UPR/DECUB/CTL* * *Final [...] structures are normal. No other significant abnormality. Music Librarian: DAVID Transcribe Date/Time: Jul 29 2020 11:19A Dictated by : LALI ORNELAS MD This examination was interpreted and the report reviewed and electronically signed by: LALI ORNELAS MD on Jul 29 2020 11:19AM EST [id number]_[facility] Vital Signs Date TimeVital SignValuePerforming NxfenrqbbBurzdxah07-11-9973 15:04-0500Body mass index (BMI) [Ratio]30.36 kg/i9Xgcwo Kiesha DO Work Phone: [phone] [place], [place] [address]Aseosewrvs07-93-4260 15:04-0500Body .3 kg Nathan Kiesha DO Work Phone: [phone] [address]-05-2025 15:04-0500Diastolic blood hbxmacqe42 mm[Hg]Nathan Kiesha DO Work Phone: [phone] [place], [place] [address]Ilhkxwkwid58-97-7070 15:04-0500Systolic blood mbapoves720 mm[Hg]Nathan Kiesha DO Work Phone: [phone] [place], [place] [address]10-22-2025 16:04-0400Body mass index (BMI) [Ratio]29.78 kg/a4Xlqve Kiesha DO Work Phone: [phone] [place], [place] [address]Ltdovomcvg31-95-3897 16:04-0400Body hesfuk35.85 kgCorey Kiesha DO Work Phone: [phone])[facility] [place], [place] [address]Igzucmgbiq39-28-4502 16:04-0400Diastolic blood zflxypyp24 mm[Hg]Nathan Kiesha DO Work Phone: [phone] [place], [place] [address]Jvodkpxrar41-24-8987 16:04-0400Systolic blood eqdhgqev350 mm[Hg]Nathan Kiesha DO Work Phone: [phone] [address]-16-2025 10:34-0400Body mass index (BMI) [Ratio]29.26 kg/u5VvpimntzMadhuri Monroy MD Work Phone: p[facility]10-16-2025 10:34-0400Body okpnmn22.58 kgMadhuri Monroy MD Work Phone: [phone] [place], [place] [address]-16-2025 10:34-0400Diastolic blood jvsjkgwo50 mm[Hg]Madhuri Monroy MD Work Phone: [phone] [place], [place] [address]10-16-2025 10:34-0400Systolic blood rnbfbifd979 mm[Hg]Madhuri Monroy MD Work Phone: [phone] [place], [place] [address]60[address]10-10-2025 14:48-0400Body wkgymb364.5 cmMine Denise MD Work Phone: [phone] [place], [place] [address]60[address]10-10-2025 14:48-0400Body mass index (BMI) [Ratio]29.04 kg/g3BmvwpnMine Denise MD Work Phone: [phone] [place], [place] [address]60[address]10-10-2025 14:48-0400Body tcnmuv24.03 kgMine Denise MD Work Phone: [phone] [place], [place] [address]10-10-2025 14:48-0400Diastolic blood gkfsywpq34 mm[Hg]Mine Denise MD Work Phone: [phone] [place] 9605410-10-2025 14:48-0400Heart rate 104 /minMine Denise MD Work Phone: [phone] [place], [place] 9605410-10-2025 14:48-0400Systolic blood ejycwqdj842 mm[Hg]Mine Denise MD Work Phone: [phone] [place], [place] 9605410-09-2025 15:54-0400Body mass index (BMI) [Ratio]29.41 kg/m1LwuxetvvSteph Keane ADVERTISING ASSISTANT MANAGER Work Phone: [phone] [place], [place] [address]Lsaxslanrl02-00-8203 15:54-0400Body .94 kgSteph Keane ADVERTISING ASSISTANT MANAGER Work Phone: [phone] SystemQkenxcjffb70-09-1632 15:54-0400Diastolic blood jgvhrkvu77 mm[Hg]Steph Keane ADVERTISING ASSISTANT MANAGER Work Phone: [phone]-[facility] SystemXyjhnntcvl31-38-3221 15:54-0400Systolic blood gttobitx197 mm[Hg]Steph Keane ADVERTISING ASSISTANT MANAGER Work Phone: [facility] SystemKnrqcqconw62-13-3900 15:37-0400Body mass index (BMI) [Ratio]29.23 kg/h3JfvogojsSteph Keane ADVERTISING ASSISTANT MANAGER Work Phone: [facility] SystemVwskmbkdob57-48-9045 15:37-0400Body lhdywz86.48 kgSteph Rickettserly ADVERTISING ASSISTANT MANAGER Work Phone: [facility] SystemQfakpjdybn74-69-2223 15:37-0400Diastolic blood mm[Hg]Steph Keane ADVERTISING ASSISTANT MANAGER Work Phone: [facility] SystemJzbetrkotx32-34-4746 15:37-0400Systolic blood mm[Hg]Steph Rickettserly ADVERTISING ASSISTANT MANAGER Work Phone: [facility] SystemOidphmoqjr39-37-8438 15:55-0400Body mass index (BMI) [Ratio]29.45 kg/g8DxqmhjTeena Sarmiento RN Work Phone: 1(784)577-[address] [place], [place] 2272009-29-2025 15:55-0400Body tzvles61.03 kgTeena Sarmiento RN Work Phone: [phone] [place], [place] 2330209-17-2025 14:32-0400Body mass index (BMI) [Ratio]27.82 kg/x2Awcjq Kiesha DO Work Phone: [facility] SystemFvwlztmjtr40-60-3890 14:32-0400Body swfici29 kg Nathan Kiesha DO Work Phone: [facility] SystemDpuelemnpb98-50-9254 14:32-0400Diastolic blood ffadobvw91 mm[Hg]Nathan Kiesha DO Work Phone: [place] [address]Vxijcpggbr13-47-6653 14:32-0400Systolic blood csanlqks616 mm[Hg]Nathan Kiesha DO Work Phone: [facility] SystemAxhscgxksw21-17-0956 15:36-0400Body lzehes841.5 cmGeorge Kageovanian DO Work Phone: NOLee[facility] HospitalFxoiorvarb66-51-7165 15:36-0400Body mass index (BMI) [Ratio]27.62 kg/a2Tbnqglsherita Beltran DO Work Phone: YGLee's Summit HospitalBbgzjvlwcu87-19-4605 15:36-0400Body temperature 97.11 [degF]Eliceo Beltran DO Work Phone: NOL[facility] HospitalQnzgloznzb67-05-8282 15:36-0400Body hthuga68.49 kgGeorsherita Beltran DO Work Phone: QALee's Summit HospitalAiwjovkdsw06-80-0509 15:36-0400Diastolic blood orvelghk61 mm[Hg]Eliceo Beltran DO Work Phone: HZLee's Summit HospitalUehpnyarnr03-90-0603 15:36-0400Heart rate97 /min Eliceo Beltran DO Work Phone: [facility] SystemQcamtvkxbf21-95-9719 15:36-3736WqH5% (BldA) [Mass fraction]98 %Eliceo Beltran DO Work Phone: UOLee's Summit HospitalTqvukiiesw69-48-5510 15:36-0400Systolic blood mm[Hg]Eliceo Beltran DO Work Phone: [facility] SystemWhxhqugwai62-33-0068 15:42-0400Body mass index (BMI) [Ratio]26.48 kg/c1Urmst Fazio DO Work Phone: [facility] SystemAykbzyfwtz09-38-9186 15:42-0400Body yhhbyr15.68 kgCorepearl Cabrerao DO Work Phone: [facility] SystemVydoghelpb21-75-2897 15:42-0400Diastolic blood qssutylp46 mm[Hg]Nathan Cabrerao DO Work Phone: [facility] SystemXxnvpxvlcc50-33-8302 15:42-0400Systolic blood nttgymtj599 mm[Hg]Nathanpearl Cabrerao DO Work Phone: [facility] SystemRkwmmozcdk07-27-3175 14:33-0400Body mass index (BMI) [Ratio]26.73 kg/a5Yklpu Kiesha DO Work Phone: [facility] SystemZjanxswqhp14-20-4855 14:33-0400Body yseefj99.28 kgCorey Kiesha DO Work Phone: [facility] SystemArysdvfyrz37-99-1488 14:33-0400Diastolic blood nwvnpzyu01 mm[Hg]Nathan Kiesha DO Work Phone: 1(030)451-[address] [place], [place] [address]Ezupynwtfm32-17-6486 14:33-0400Systolic blood zdaizrqi994 mm[Hg]Nathan Kiesha DO Work Phone: [phone])629-[address] [place], [place] [address]Xrvpnjlomg75-97-5845 14:45-0400Body mass index (BMI) [Ratio]25.24 kg/e2Bsahy Kiesha DO Work Phone: 1(815)361-[address] [place], [place] [address]Unclhwidbt63-46-1997 14:45-0400Body yinugo72.6 kg Nathan Kiesha DO Work Phone: 1([phone])436-[address] [place], [place] [address]Nzpjnmztqk59-97-7325 14:45-0400Diastolic blood dyqqrxfp82 mm[Hg]Nathan Kiesha DO Work Phone: 1(937)489-[address] [place], [place] [address]Unhnxtnkot73-28-7077 14:45-0400Systolic blood mm[Hg]Nathan Kiesha DO Work Phone: [phone] [place], [place] [address]Grxtbxmrug42-88-3780 10:29-0400Body mass index (BMI) [Ratio]25.68 kg/m2[facility]06-06-2025 10:29-0400Body apubdr84.69 kgF[facility]02-24-2025 15:08-0500Body mass index (BMI) [Ratio]25.99 kg/a4Rvysp Kiesha DO Work Phone: 1(731)455-[address] [place], [place] [address]Klzvgoprmg18-22-7054 15:08-0500Body .47 kgCorey Kiesha DO Work Phone: [phone] [place], [place] [address]Hmktxxjkdo80-48-8508 15:08-0500Diastolic blood cvoldyzj10 mm[Hg]Nathan Kiesha DO Work Phone: 1(439)463-[address] [place], [place] [address]Crhgwmlocr74-66-2462 15:08-0500Systolic blood vqmqvsoc477 mm[Hg]Nathan Kiesha DO Work Phone: 1(624)246-[address] [place], [place] [address]Zjqygzyrfk75-84-5895 15:53-0500Body fsukmx683.5 cmGemartha Beltran DO Work Phone: noLee's Summit HospitalWbqinchqil73-00-6608 15:53-0500Body mass index (BMI) [Ratio]25.61 kg/l1Djaowgmartha Beltran DO Work Phone: noLee's Summit HospitalRkiavjpyxm54-92-0388 15:53-0500Body temperature 97.11 [degF]Eliceo Beltran DO Work Phone: noLee's Summit HospitalAhvwfrlzdd92-52-3134 15:53-0500Body npxuwl52.5 kg Eliceo Beltran DO Work Phone: noLee's Summit HospitalQxpwggesee30-55-1278 15:53-0500Diastolic blood zpbgsomd11 mm[Hg]Eliceo Beltran DO Work Phone: noLee's Summit HospitalRmfvstasls24-25-2239 15:53-0500Heart rate51 /min Eliceo Beltran DO Work Phone: noLee's Summit HospitalKqjgxuhtzi65-38-0548 15:53-8672UhZ7% (BldA) [Mass fraction]98 %Eliceo Beltran DO Work Phone: noLee's Summit HospitalGxbuberghs29-19-0340 15:53-0500Systolic blood bciijbav105 mm[Hg]Eliceo Beltran DO Work Phone: noLee's Summit HospitalHvjlnwfzgm85-54-9052 11:15-0400Body mass index (BMI) [Ratio]25.97 kg/g8Jhbab Fazio DO Work Phone: [facility] SystemYglxsvcisq19-69-6078 11:15-0400Body nbdoir24.41 kgNathan Pop DO Work Phone: NOLee's Summit HospitalFbuaylibvo72-36-7904 11:15-0400Diastolic blood pfkstezg63 mm[Hg]Nathan Pop DO Work Phone: [facility] SystemPgwnvlpins01-44-6840 11:15-0400Systolic blood fkemeymg103 mm[Hg]Nathan Pop DO Work Phone: noLee's Summit HospitalZvmpphcohd92-82-1239 10:02-0400Body mass index (BMI) [Ratio]25.39 kg/h0Yylon Kiesha DO Work Phone: 1(962)852-[address] [place], [place] [address]Yhpfnuduwh69-17-1918 10:02-0400Body hihody25.96 kgCorey Kiesha DO Work Phone: 1(531)[facility] [place], [place] [address]Ndxghobabc86-49-3496 10:02-0400Diastolic blood ilozajti01 mm[Hg]Nathan Kiesha DO Work Phone: 1(833)763-[address] [place], [place] [address]Mjuvbasvzj46-51-2300 10:02-0400Systolic blood hmwhtzdu770 mm[Hg]Nathan Kiesha DO Work Phone: 1(655)[facility] [place], [place] [address]Uuuyjtnhww61-37-3713 10:55-0500Body mass index (BMI) [Ratio]28.17 kg/y0Amumk Kiesha DO Work Phone: 1(824)[facility] [place], [place] [address]Legxrictxg72-37-5349 10:55-0500Body sulaqk89.85 kgCorey Kiesha DO Work Phone: 1(794)[facility] [place], [place] [address]Lqpditbfkq44-78-4547 10:55-0500Diastolic blood msvzkezm24 mm[Hg]Nathan Kiesha DO Work Phone: 1(469)[facility] [place], [place] [address]Rmlxvjefbc37-15-0946 10:55-0500Systolic blood icrxttpx352 mm[Hg]Nathan Kiesha DO Work Phone: 1(141)[facility] [place], [place] [address]Tjwmjiltka65-79-6813 17:31-0400Body temperature 98.96 [degF][facility]10-18-2023 17:31-0400 Diastolic blood ocqcnwmx67 mm[Hg][facility]10-18-2023 17:31-2989EAF9 99 %[facility]10-18-2023 17:31-0400Heart imfg553 /minV[facility] L[facility]10-18-2023 17:31-0400 Respiratory rate16 /minV[facility]10-18-2023 17:31-0400 Systolic blood mdbnsehn078 mm[Hg][facility]06-06-2023 10:55-0400Body esywir418.5 cmErin Reaper 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 Work Phone: [phone] Aeeoix10-96-3348 10:55-0400Body .86 kgErin Reaper 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 Work Phone: [phone] Jqadto72-28-3383 10:55-0400Diastolic blood mvxomxqr16 mm[Hg]Jihan Reaper 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 Work Phone: [phone] Dvedkr45-79-6599 10:55-0400Systolic blood jpqkelml385 mm[Hg]Jihan Reaper 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 Work Phone: [place] Zucxsz51-94-4991 19:18-0500Diastolic blood ultlqxqz64 mm[Hg][facility]03-08-2023 19:18-0500Heart rate98 /min[facility]03-08-2023 19:18-0500Nursing Progress Note ReasonOther: this RN discharged pt. pt verbalizes understanding and denies questiosn prior to discharge.[facility]03-08-2023 19:18-0500Respiratory rate16 /min[facility]03-08-2023 19:18-2007BaG0% (BldA) [Mass fraction]100 %[facility]03-08-2023 19:18-0500 Systolic blood mm[Hg][facility] 01-31-2023 18:00-0500Diastolic blood yjwsibjq36 mm[Hg][facility]03-08-2023 18:00-0500Heart ulsa103 /min[facility]03-08-2023 18:00-0500Mean blood ompkuaxn672 mm[Hg][facility]03-08-2023 18:00-4098KuT4% (BldA) [Mass fraction]99 %[facility]03-08-2023 18:00-0500 Systolic blood ybufcfpw028 mm[Hg][facility] 01-31-2023 17:00-0500Diastolic blood spbqnakb44 mm[Hg][facility]03-08-2023 17:00-0500Mean blood kjpwoafx882 mm[Hg][facility]03-08-2023 17:00-0500Systolic blood pressure 117 mm[Hg][facility]03-08-2023 16:38-0500Heart tqky872 /min[facility]03-08-2023 16:38-0500Mean blood senevtlk688 mm[Hg][facility]03-08-2023 16:38-0500Respiratory rate18 /[facility] 01-31-2023 13:49-0500Body bfavskyjiak87.88 [degF][facility]03-08-2023 13:49-0500Heart fsvx740 /min[facility]02-04-2023 14:55-0500Body qfflnvlkixo16.88 [degF][facility]02-04-2023 14:55-0500Diastolic blood ymanwljs89 mm[Hg][facility]02-04-2023 14:55-0500Heart rate84 /min[facility]02-04-2023 14:55-0500Mean blood mm[Hg][facility]02-04-2023 14:55-0500Respiratory rate20 /min[facility]02-04-2023 14:55-5006JaN5% (BldA) [Mass fraction]98 %[facility]02-04-2023 14:55-0500Systolic blood pressure 137 mm[Hg][facility]02-04-2023 14:35-0500Body zjiatyolqhm17.88 [degF][facility]02-04-2023 14:35-0500Diastolic blood mm[Hg][facility]02-04-2023 14:35-0500Heart rate82 /min[facility]02-04-2023 14:35-0500Mean blood kdoshpqv91 mm[Hg][facility]02-04-2023 14:35-0500Respiratory rate16 /min[facility]02-04-2023 14:35-7993UxU2% (BldA) [Mass fraction]97 %[facility]02-04-2023 14:35-0500Systolic blood bhsiwlvz489 mm[Hg][facility]02-04-2023 13:35-0500Body mbwiwtrgzkt44.88 [degF][facility]02-04-2023 13:35-0500Diastolic blood wruvxzla66 mm[Hg][facility]02-04-2023 13:35-0500Heart rate80 /min[facility]02-04-2023 13:35-0500Mean blood pjwolhqp31 mm[Hg] [facility]02-04-2023 13:35-0500Respiratory rate 17 /min[facility]02-04-2023 13:35-7353LzC2% (BldA) [Mass fraction]96 %[facility]02-04-2023 13:35-0500Systolic blood dsetiisd264 mm[Hg][facility]02-04-2023 13:00-0500Respiratory rate12 /min[facility]02-04-2023 12:55-0500Respiratory rate9 /min[facility]02-04-2023 12:50-0500Respiratory rate10 /min[facility]02-04-2023 08:15-0500Body kmxquiihdaq68.24 [degF] [facility]02-04-2023 08:15-0500Heart yupr481 /min[facility]01-07-2023 13:41-0500Body vzwxlrwhaiv90.2 [degF]Kathe Ryder DO Work Phone: 1(889)030-[address] [place], [place] [address]Sxyutq37-34-6706 13:41-0500Diastolic blood bbwkeare11 mm[Hg]Kathe Ryder DO Work Phone: [facility]Vbl[facility]p07-76-6949 13:41-0500Heart hgdx297 /min Kathe Ryder DO Work Phone: [phone] HospitalWiyrgn34-32-5640 13:41-0500Respiratory rate18 /minKathe Ryder DO Work Phone: [facility] HospitalAawmgu83-03-3429 13:41-9441KxU9% (BldA) [Mass fraction]99 %Kathe Ryder DO Work Phone: [facility] HospitalHswxjh41-39-8023 13:41-0500Systolic blood cxpdvwsy800 mm[Hg]Kathe Ryder DO Work Phone: [facility] HospitalCmkovh87-08-2065 00:45-0500Body ovkvmv253.5 cm Kathe Ryder DO Work Phone: [facility] HospitalOpmtop39-84-0446 00:45-0500Body mass index (BMI) [Ratio]25.61 kg/u0ZatxumuofKathe Ryder DO Work Phone: [facility] HospitalYlpvwh06-89-0743 00:45-0500Body rnbaie33.5 kg Kathe Ryder DO Work Phone: [facility] HospitalNrzvkp76-20-5988 22:26-0500Hourly Rounding Fredi KARASIK [address] [place], [place] [address]Comment on above:Result Comment: ensured that all pt belongings are sent with pt. pt has no questions or concerns. report given to EMS. pt stable and no s/s of distress. pt off unit to qfrqvwyt96-68-0119 22:00-0500Diastolic blood addcutuk30 mm[Hg]Fredi KARASIK [address] [place], [place] 0623101-02-2023 22:00-0500Heart twva482 /minGregory KARASIK [address] [place], [place] 0623101-02-2023 22:00-0500 Hourly RoundingGregory KARASIK [address] [place], [place] 0623101-02-2023 22:00-0500Mean blood zukwazel572 mm[Hg]Fredi KARASIK [address] [place], [place] 0623101-02-2023 22:00-0500 Systolic blood xrymkyme093 mm[Hg]Fredi KARASIK [address] [place], [place] 0623101-02-2023 21:50-0500Blood Pressure LocationGregory KARASIK [address] [place], [place] 0623101-02-2023 21:50-0500 Diastolic blood exdrswmp33 mm[Hg]Fredi KARASIK [address] [place], [place] 0623101-02-2023 21:50-0500Heart kidr813 /minGregory KARASIK [address] [place], [place] 0623101-02-2023 21:50-0500 Hourly RoundingGregory KARASIK [facility]01-02-2023 21:50-0500Mean blood tlcqxwma414 mm[Hg]Fredi SCHUMACHERASIK [address] [place], [place] 0623101-02-2023 21:50-0500 Respiratory rate18 /minFredi SCHUMACHERASIK [address] [place], [place] 0623101-02-2023 21:50-6607HkK4% (BldA) [Mass fraction]98 %Fredi SCHUMACHERASIK [address] [place], [place] 0623101-02-2023 21:50-0500 Systolic blood wsrzcjor192 mm[Hg]Fredi KARASIK [address] [place], [place] 0623101-02-2023 21:37-0500Blood Pressure LocationGregrosa ABREUK [address] [place], [place] 0623101-02-2023 21:37-0500 Diastolic blood mm[Hg]Fredi SCHUMACHERASIK [address] [place], [place] 0623101-02-2023 21:37-0500Heart kvdp741 /minFredi ABREUK [address] [place], [place] 0623101-02-2023 21:37-0500Mean blood fkykqpth311 mm[Hg]Fredi SCHUMACHERASIK [address] [place], [place] 0623101-02-2023 21:37-4393XcU2% (BldA) [Mass fraction]97 %Fredi SCHUMACHERASIK [address] [place], [place] 0623101-02-2023 21:37-0500 Systolic blood ifxiojff615 mm[Hg]Fredi KARASIK [address] [place], [place] 0623101-02-2023 21:30-0500Blood Pressure LocationFredi SCHUMACHERASIK [address] [place], [place] 0623101-02-2023 21:30-0500Body ovbwerurzhi14.6 [degF]Fredi DORSEY [facility]01-02-2023 19:00-0500Body zdnurlooazj53.24 [degF]Fredi DORSEY [facility]01-02-2023 17:15-0500Body aquidjdfvlz81.06 [degF]Fredi DORSEY [facility]01-02-2023 14:02-0500Heart rate99 /minFredi DORSEY [facility]08-19-2022 07:00-0400Body gxpremwvdzb64.6 [degF]Kaylinn Dokken [address]08-19-2022 07:00-0400 Diastolic blood yrmexxci46 mm[Hg]Kaylinn Dokken [address]08-19-2022 07:00-0400Heart rate80 /minKaylinn Dokken [address] [place], [place] 2866308-19-2022 07:00-0400Mean blood zingrxns77 mm[Hg]Kaylinn Dokken [address] [place], [place] 2866308-19-2022 07:00-0400 Respiratory rate17 /minKaylinn Dokken [address]08-19-2022 07:00-0400 Systolic blood wajfsfhg656 mm[Hg]Kaylinn Dokken [address] [place], [place] 2866308-19-2022 06:07-0400Body ohnwubmrptn11.24 [degF]Kaylinn Dokken [address]08-19-2022 06:07-0400 Diastolic blood fqndvzeb69 mm[Hg]Kaylinn Dokken [address] [place], [place] 2866308-19-2022 06:07-0400Heart rate90 /minCharlotteylinn Dokken [address]08-19-2022 06:07-0400 Respiratory rate18 /minCharlotteylinn Dokken [address] [place], [place] 2866308-19-2022 06:07-0632NeG4% (BldA) [Mass fraction]100 %Kumar Villagomez [address]08-19-2022 06:07-0400 Systolic blood mzpwehwy067 mm[Hg]Beatrisn Yulyen [address] [place], [place] 2866308-19-2022 05:30-0400 Hourly RoundingCorey KIESHA [address] [place], [place] [address]Comment on above:Result Comment: Pt discharged per physician orders. Pt ambulates off unit with a steady jgiw46-49-4833 05:15-0400Diastolic blood kaukixrw04 mm[Hg]Nathan KIESHA [address] [place], [place] 0623108-19-2022 05:15-0400Heart bdny188 /minCorey KIESHA [address] [place], [place] 0623108-19-2022 05:15-0400 Hourly RoundingCorey KIESHA [address] [place], [place] 0623108-19-2022 05:15-0400Mean blood ebwonooa16 mm[Hg]Nathan KIESHA [address] [place], [place] 0623108-19-2022 05:15-0400 Respiratory rate18 /minCorey KIESHA [address] [place], [place] 0623108-19-2022 05:15-0400 Systolic blood vyjoivuy022 mm[Hg]Nathan KIESHA [address] [place], [place] 0623105-24-2022 11:00-0400Body .02 cmCameron Edward Other [facility] [employer] Other 05-24-2022 11:00-0400Body mass index (BMI) [Ratio] 23.03 kg/h1Ixhurax Rezolvetty [facility] [employer] Other 05-24-2022 11:00-0400Body .97 kgCamerojunior Loratty Other [facility] [employer] Other 03-17-2022 11:41-0400Body vpaqyh440.48 cmMegan Billow DO Work Phone: [phone]-IMJAP[address] Work Phone: [phone] 11:41-0400Body mass index (BMI) [Ratio] 24.51 kg/x6Mvoma Billow DO Work Phone: RA-FISLI[address] Work Phone: [phone] 11:41-0400Body surface area Derived from formula1.61 q5Kdfhm Billow DO Work Phone: LE-THYZB[address] Work Phone: [phone] 11:41-0400Body ufopqj52.78 kgMegan Billow DO Work Phone: UR-HRNKQ[address] Work Phone: [phone] 11:41-0400Diastolic blood sqhthemi13 mm[Hg] Charlene Billow DO Work Phone: DQ-YCNCT[address] Work Phone: [phone] 11:41-0400Systolic blood pofrmhrb314 mm[Hg] Charlene Billow DO Work Phone: PA-COZVK[address] Work Phone: [phone] 11:41-09847 1Megan Billow DO Work Phone: ZN-PSMLS[address] Work Phone: Comment on above:KTFJCOWEMbbfDyizs66-19-9946 14:53-0400Body iumsrz714.48 cmMegan Billow DO Work Phone: [address]-WRULY[address] Work Phone: [phone] 14:53-0400Body mass index (BMI) [Ratio] 21.77 kg/h9Btezd Billow DO Work Phone: ZA-NKQHC[address] Work Phone: [phone] 14:53-0400Body surface area Derived from formula1.53 m0Zxkaz Billow DO Work Phone: HX-TEURZ[address] Work Phone: [phone] 14:53-0400Body orepwp22.98 kgMegan Billow DO Work Phone: OI-IHHPY[address] Work Phone: [phone] 14:53-0400Diastolic blood kfhbiczv04 mm[Hg] Charlene Billow DO Work Phone: SM-WQAPY[address] Work Phone: [phone] 14:53-0400Heart awyk188 /minMegan Billow DO Work Phone: HX-LWMAJ[address] Work Phone: [phone] 14:53-0400Systolic blood erxbvxni344 mm[Hg] Charlene Billow DO Work Phone: PG-BBFQW[address] Work Phone: [phone] 14:53-97282 1Megan Billow DO Work Phone: KS-WXEEH[address] Work Phone: Comment on above:GRAVPARAPainScale Encounters Encounter DateEncounter TypeCare ProviderFacilityStart: 10-06-2025 End: 38-11-0517Yxcjro outpatient visit 25 minutesColleen E Matthias CLAYTON Work Phone: [phone]-Djgpt [facility] at [facility] Comment on above:Insulin controlled gestational diabetes mellitus (GDM) in third trimester (Primary Dx); Essential hypertension affecting in third trimesterStart: 10-06-2025 End: 43-12-8134wgvrlublhiZZKGZQS E MATTHIASProMedica Fostoria City Hospitaltart: 10-05-2025 End: 78-21-8949Qyoaghkaw encounterAnjana Davalos RNMaternal- Medicine at [facility] Hospitalt[facility]: 10-03-2025 End: 75-45-3566Qqrgkbnrq Result EncounterSteph Keane NP Work Phone: noms External Department UnsolicitedStart: 10-03-2025 End: 45-81-7702Znssmjvma Result EncounterSteph Keane NP Work Phone: [facility] External Department UnsolicitedStart: 09-30-2025 End: 58-79-7022Hllilili flow sheetCorey Kiesha DO Work Phone: [facility] [place] [facility]BGYNComment on above:Third trimester ([facility]); 31 weeks gestation of ([facility]); Pre-eclampsia in third trimester ([facility])Start: 09-30-2025 End: 12-69-8234zopbezgxiySNVKZ FAZIONot AvailableStart: 09-30-2025 End: 33-55-5308Bizlnc flowsheetCorey Kiesha DO Work Phone: noMS [place] [facility]YNStart: 09-30-2025 End: 62-13-3105Cvmcub flowsheetCorey Kiesha DO Work Phone: [facility]BGYNStart: 09-28-2025 End: 49-84-8882Woftef OnlyChivo Springer PA-C Work Phone: [phone]-Xemit Medicine at [facility] Comment on above:Essential hypertension affecting in third trimester Start: 09-26-2025 End: 64-67-5491Ubsylkpeg Result EncounterSteph Keane NP Work Phone: noms External Department UnsolicitedStart: 09-26-2025 End: 96-01-2536Wlgqjexam Result EncounterSteph Keane NP Work Phone: noms External Department UnsolicitedStart: 09-21-2025 End: 03-29-2694ebkiwigkjiEekqjag E Lavoy PA-C Work Phone: [phone]-Sstir Medicine at [facility] Comment on above:Insulin controlled gestational diabetes mellitus (GDM) in third trimester (Primary Dx); Essential hypertension affecting in third trimesterStart: 09-21-2025 End: 98-31-5359Kpugncqii encounterVerito EDOUARD Work Phone: [phone]-Tryko Medicine at [facility] Start: 09-19-2025 End: 78-02-5093Hagjctftl Result EncounterSteph Keane NP Work Phone: noms External Department UnsolicitedStart: 09-19-2025 End: 86-32-0950Xtpmbsjbd Result EncounterSteph Keane NP Work Phone: noms External Department UnsolicitedStart: 09-17-2025 End: 65-38-9908Xcgykp Breanna CAGE Work Phone: [phone]-Kmxga Medicine at [facility] Comment on above:Essential hypertension affecting in third trimester Start: 09-16-2025 End: 25-72-6572hfmbbuddbmUMSCD FAZIONot AvailableStart: 09-16-2025 End: 15-92-5964Igxkfqdd flow sheetCorey Kiesha DO Work Phone: noms [place] [facility]BGYNComment on above:29 weeks gestation of ([facility]); Third trimester ([facility]); Hypertension affecting , antepartum ([facility]); Gestational diabetes mellitus (GDM), antepartum, gestational diabetes method of control unspecified([facility])Start: 09-16-2025 End: 27-40-5673Tgbtbz flowsheetCorey Kiesha DO Work Phone: [facility]BGYNStart: 09-16-2025 End: 14-35-7726Jqhezw flowsheetCorey Kiesha DO Work Phone: [facility]BGYNStart: 09-16-2025 End: 30-97-6386Dopfskjpe Nirmal Harris [facility]art: 09-15-2025 End: 52-71-1906AwumifMika Springer PA-C Work Phone: [phone]-Motnp Medicine at [facility] Comment on above:Essential hypertension affecting in third trimester Start: 09-10-2025 End: 31-47-5841Smmngo outpatient visit 25 minutesMadhuri Monroy MD Work Phone: [facility] [place]Comment on above: 28 weeks gestation of (Primary Dx); Insulin controlled gestational diabetes mellitus (GDM) in second trimester; Essential hypertension affecting in third trimesterStart: 09-10-2025 End: 54-73-0461alobirxtaiODBTIROY P DOCHEVASelect [facility] Start: 09-04-2025 End: 97-90-6452Ejezfc consultation new/estab patient 60 Annalee Denise MD Work Phone: [phone]-Elqoo Medicine at [facility] Comment on above:Diet controlled gestational diabetes mellitus (GDM) in second trimester (Primary Dx); Essential hypertension affecting in third trimesterStart: 09-04-2025 End: 28-03-9954zziezcdjbjSXKCAJNona McOhioHealth Van Wert Hospitaltart: 09-03-2025 End: 77-76-8510Ygehrmts flow sheetSteph Keane ADVERTISING ASSISTANT MANAGER Work Phone: [facility] [place] OBGYNComment on above:Hypertension affecting , antepartum (HHS-HCC) (Primary Dx); 27 weeks gestation of (HHS-HCC); Second trimester (HHS-HCC)Start: 09-03-2025 End: 03-46-2832rcdkditefeJUHEQEDF EBERLYNot AvailableStart: 09-03-2025 End: 19-92-6719Xbakkk flowsheetSteph Keane ADVERTISING ASSISTANT MANAGER Work Phone: [facility] [place] OBGYNStart: 09-03-2025 End: 45-06-1230Zssdewqmh Result EncounterCorey Kiesha DO Work Phone: noms External Department UnsolicitedStart: 09-03-2025 End: 73-23-3443Drkvuayxb Result EncounterCorey Kiesha DO Work Phone: noms External Department UnsolicitedStart: 09-01-2025 End: 02-10-4627Ksgfgzcce encounterCha Harris RNMaternal- Medicine at [facility] Hospitaltart: 08-29-2025 End: 27-98-5048Qjhjkwqzp Result EncounterSteph Keane NP Work Phone: noms External Department UnsolicitedStart: 08-29-2025 End: 16-14-4390Tbfnntbpz Result EncounterSteph Keane NP Work Phone: noms External Department UnsolicitedStart: 08-27-2025 End: 42-85-0949pzuiwrkcchPDGGEONB EBERLYNot AvailableStart: 08-27-2025 End: 09-42-4510Ktoxiiss flow sheetSteph Keane ADVERTISING ASSISTANT MANAGER Work Phone: NOMS Patti OBGYNComment on above:26 weeks gestation of (HHS-HCC); Second trimester (HHS-HCC); induced hypertension, antepartum (HHS-HCC); Gestational diabetes mellitus (GDM) in second trimester, gestational diabetes method of control unspecified (HHS-HCC)Start: 08-27-2025 End: 51-84-6338Csosrz flowsheetSteph Elsa ADVERTISING ASSISTANT MANAGER Work Phone: NOIY [facility] OBGYNStart: 08-27-2025 End: 56-58-3653Fpbdcz flowsheetSteph Keane ADVERTISING ASSISTANT MANAGER Work Phone: NOXP [facility] OBGYNStart: 08-27-2025 End: 38-10-4001Rhlyamevu Result EncounterSteph Keane ADVERTISING ASSISTANT MANAGER Work Phone: noms External Department UnsolicitedStart: 08-25-2025 End: 35-19-8717Jmatrncpr Result EncounterGeneric External Data ProviderNOMS External Department UnsolicitedStart: 08-25-2025 End: 31-28-9841Wdnsvxjxd Result EncounterGeneric External Data ProviderNOMS External Department UnsolicitedStart: 08-24-2025 End: 78-40-6743drqgificfjKnxvmo M Frey RN Work Phone: [phone]-Iksmm Medicine at [facility] Comment on above:Gestational diabetes mellitus (GDM) in second trimester, gestational diabetes method of control unspecifiedStart: 08-21-2025 End: 25-51-2423Bxqfw abstractingScanning Provider ExternalMaternal- Medicine at [facility] Hospitaltart: 08-18-2025 End: 11-60-4748Dvvhu Aura Monroy MD Work Phone: [phone]-Inkbv Medicine at [facility] Start: 08-15-2025 End: 86-88-3634dewnhuhdoyWJSNCIAM EBERLYFacility:FTMCStart: 08-12-2025 End: 61-72-1997Vhbaezij flow sheetCorey Kiesha DO Work Phone: noms [place] OBGYNComment on above:24 weeks gestation of ([facility]); Second trimester ([facility]); Elevated glucose tolerance testStart: 08-12-2025 End: 95-88-8442crsqahiiwdKMSXI FAZIONot AvailableStart: 08-12-2025 End: 57-05-0245myafpkqepzRleff Bryant MANISHAOFacility:FTMCStart: 08-01-2025 End: 84-20-4331dnpwpuwelpI KENNETH BELTRANFacility:FTMCStart: 07-30-2025 End: 71-39-0921Cpeukpb encounter statusGemartha Hurtado Ruby DO Work Phone: [facility] Work Phone: Start: 07-30-2025 End: 12-05-4556Ginvcajc preventive med est patient 18-39 yrsGeorsherita Hurtado Charlottecarol DO Work Phone: noms [facility] 230Comment on above: Wellness examination (Primary Dx); Hypertension, unspecified type ; Lipid screeningStart: 07-30-2025 End: 48-96-3230psfpyvkmssQGPQCM R KAFTANNot AvailableStart: 07-30-2025 End: 21-45-3542Gxkmmq flowsheetEliceo Hurtado Ruby DO Work Phone: noms [facility] 230Start: 07-30-2025 End: 01-30-9488Feacac flowsreynoldEliceo Hurtado Ruby DO Work Phone: noms [facility] 230Start: 07-15-2025 End: 73-32-1473Kucifwre flow sheetCorey Kiesha DO Work Phone: NOYG Patti OBGYNComment on above:20 weeks gestation of ([facility]); Second trimester ([facility]); Diabetes mellitus screeningStart: 07-15-2025 End: 44-43-3242ggfhspuykkDVRUP FAZIONot AvailableStart: 07-15-2025 End: 49-94-3587Kfjnmlyfa Result EncounterCorey Kiesha DO Work Phone: NOMA External Department UnsolicitedStart: 07-15-2025 End: 01-76-5322Swfpsgooh Result EncounterCorey Kiesha DO Work Phone: NOMS External Department UnsolicitedStart: 06-22-2025 End: 27-67-4298Slznvnas flow sheetCorey Kiesha DO Work Phone: NOLR [place] OBGYNComment on above:Sinusitis, unspecified chronicity, unspecified location (Primary Dx); Second trimester ([facility]); 17 weeks gestation of ([facility]); Screening, , for anatomic survey ([facility])Start: 06-22-2025 End: 13-94-7594zvydpitentJBSQY FAZIONot AvailableStart: 06-22-2025 End: 30-85-4244Sxyhxg flowsheetCorey Kiesha DO Work Phone: NOFC [place] OBGYNStart: 06-22-2025 End: 48-21-6512Qoiofi flowsheetCorey Kiesha DO Work Phone: NOZK [facility] OBGYNStart: 06-22-2025 End: 32-71-9637Atytczqj Result EncounterCorey Kiesha DO Work Phone: NOON External Department UnsolicitedStart: 05-25-2025 End: 92-95-9903alagbmezksEDIAX FAZIONot AvailableStart: 05-25-2025 End: 98-33-2504Tpxwuewl flow sheetCorey Kiesha DO Work Phone: NOTD BCP OBComment on above:Nonintractable episodic headache, unspecified headache type (Primary Dx); Second trimester ([facility]); 13 weeks gestation of ([facility])Start: 05-25-2025 End: 13-66-7764Tulruc flowsheetCorey Kiesha DO Work Phone: NOMS BCP OBStart: 05-25-2025 End: 45-76-0445Rotigy flowsheetCorey Kiesha DO Work Phone: NOMS BCP OBStart: 05-04-2025 End: 44-98-6019Rigonjnvp Result EncounterCorey Kiesha DO Work Phone: NOMS External Department UnsolicitedStart: 05-04-2025 End: 75-81-8263Rnumlokxn Result EncounterCorey Kiesha DO Work Phone: noms External Department UnsolicitedStart: 05-01-2025 End: 77-05-5255Nagwiqdbc Result EncounterCorey Kiesha DO Work Phone: noMS External Department UnsolicitedStart: 05-01-2025 End: 66-11-2372Nkealzpgj Result EncounterCorey Kiesha DO Work Phone: noms External Department UnsolicitedStart: 05-01-2025 End: 56-11-2480wvqjtpcmtiGWKKCD Jose Angel AvailableStart: 05-01-2025 End: 93-34-8119Nqroxx outpatient visit 5 minutesNoms Bcp Ob Kiesha NurseNOMS BCP OBComment on above:GA: 7x1hGjhyc: 03-13-2025 End: 13-20-9957sztobzsyqdXcgui R FAZIOFacility:FTMCStart: 03-13-2025 End: 52-13-7352Jzmduvx encounter procedureCorey R KIESHA [facility] Start: 02-02-2025 End: 58-30-8702Kvwtpdh encounter procedureDenny Rodríguez MD Work Phone: [facility] [place] Work Phone: Start: 02-02-2025 End: 80-98-1089ksevyhbzyuUdawf Baxter MD Work Phone: [facility] Work Phone: Start: 01-22-2025 End: 06-06-5379xpcivtemvmCltpz R FAZIOFacility:FTMCStart: 01-22-2025 End: 24-23-3035Huzzqtp encounter procedureCorey R KIESHA [facility] Start: 01-19-2025 End: 71-06-0832Iumxxd outpatient visit 15 minutesCorey Kiesha DO Work Phone: noms BCP OBComment on above:Pain in female genitalia on intercourse; EndometriosisStart: 01-19-2025 End: 66-55-7235fcezagmxjhWELKJ FAZIONot AvailableStart: 01-19-2025 End: 94-60-5881Gmwfzg flowsheetCorey Kiesha DO Work Phone: NOMS BCP OBStart: 01-19-2025 End: 03-73-7061Ejmohf flowsheetCorey Kiesha DO Work Phone: NOMS BCP OBStart: 12-30-2024 End: 65-51-8816hhffnkwxngWRVGXO R TREYANNot AvailableStart: 12-30-2024 End: 91-48-4420Tzevhv outpatient visit 15 minutesGeorge R Charlottecarol DO Work Phone: [facility] 230Comment on above:Hypertension, unspecified type (CMS/HCC) (Primary Dx); Paroxysmal tachycardia, unspecified (CMS/HCC); Chronic right shoulder pain; Scapular dyskinesisStart: 08-18-2024 End: 54-12-8309Bxpfpq flowsheetCorey Kiesha DO Work Phone: noMS BCP OBStart: 08-18-2024 End: 51-37-9873Owxfiw flowsheetCorey Kiesha DO Work Phone: noMS BCP OBStart: 08-18-2024 End: 44-76-5027Zcrjfjoap Result EncounterCorey Kiesha DO Work Phone: noms External Department UnsolicitedStart: 08-18-2024 End: 63-36-2024Bnjyiin encounter procedureCorey Kiesha DO Work Phone: [facility] Work Phone: Start: 08-18-2024 End: 97-49-8304Ubnwwosd preventive med est patient 18-39 yrsCorey Kiesha DO Work Phone: NOMS BCP OBComment on above:Well woman exam with routine gynecological examStart: 07-22-2024 End: 86-14-2815Vqjwoj flowsheetCorey Kiesha DO Work Phone: NOMS BCP OBStart: 07-22-2024 End: 66-92-1192Eageln flowsheetCorey Kiesha DO Work Phone: NOVY BCP OBStart: 07-22-2024 End: 27-00-3288Nhqiru outpatient visit 15 minutesCorey Kiesha DO Work Phone: NOMS BCP OBComment on above:Dysmenorrhea, unspecified Start: 27-06-8902Mydbxgedy encounterMegan Billow DO Work Phone: [facility]aletart: 80-51-1813Cbkihzbmb encounterMegan Billow DO Work Phone: WWestern Wisconsin HealthComment on above:Surgery CancelledStart: 02-13-2024 End: 94-58-1150Gxdtpuvie Result EncounterCorey Kiesha DO Work Phone: NOUE External Department UnsolicitedStart: 02-13-2024 End: 06-09-6779Ywbsclpuh Result EncounterCorey Kiesha DO Work Phone: noms External Department UnsolicitedStart: 01-15-2024 End: 27-02-8947Iuegpswpt Result EncounterCorey Kiesha DO Work Phone: noms External Department UnsolicitedStart: 01-15-2024 End: 04-09-1369Zynifmwjr Result EncounterCorey Kiesha DO Work Phone: noms External Department UnsolicitedStart: 01-10-2024 End: 65-60-3476Ibboui outpatient visit 15 minutesCorey Kiesha DO Work Phone: NOMS BCP OBComment on above:Menorrhagia with regular cycle; Pelvic pain in female; Uses controlStart: 95-80-8244WyuaefZtbng Billow DO Work Phone: [facility] HospitalComment on above:Refill Request Start: 04-36-5665tvkpdlilqtHkanf Billow DO Work Phone: Obstetrics/GynecologyComment on above:painStart: 12-10-2023 End: 57-60-2808jfxcfttqncLVVHQ BILLOWFacility:[facility] Hospitaltart: 99-75-6119ooymtehjtbHarfm Billow DO Work Phone: REM PIRES MCStart: 44-19-7921Jhqogas encounter procedureMegan Billow DO Work Phone: Obstetrics/GynecologyComment on above:office visit Start: 09-12-2023 End: 11-82-7465Rogpjhuyh department patient Berny Loco [facility] Start: 86-70-2065Dlfcbn pelvic examinationMegan Billow DO Work Phone: Obstetrics/GynecologyComment on above:Pelvic pain in female (Primary Dx)Start: 20-18-5115kinopxswhnRazgc Billow DO Work Phone: Obstetrics/GynecologyComment on above:painful periods Start: 08-24-2023 End: 50-55-4922Panaik pelvic examinationErin Vicker 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 Work Phone: GynecologyComment on above:High-tone pelvic floor dysfunction (Primary Dx); Chronic pelvic pain in femaleStart: 08-24-2023 End: 02-83-6047Orkwcjxynzfx consultation with Kelton Downs APRN.NUTRITION AIDES TEACHER Work Phone: [facility] MAINStart: 08-24-2023 End: 56-67-5209czkrwiaxsuVJAZ REAPERFacility:[facility] HospitalStart: 20-96-5386laooaclyeeQgnwk Billow DO Work Phone: Obstetrics/GynecologyComment on above:painful period Start: 44-78-6294Rrsgiajjg encounterMegan Billow DO Work Phone: GynecologyComment on above:Insurance Authorization (Orilissa)Start: 07-16-2023 End: 53-94-6652ilsijkgofsESIBB BILLOWFacility:[facility] Hospitaltart: 06-12-2023 End: 79-18-3384egdznkghcnYIHJJ BILLOWFacility:[facility] Hospitaltart: 06-12-2023 End: 44-62-6080Snwhqimgmw hospital visit by physicianandra [facility] Suki (I-Stat/1.5t) RadiologyComment on above:Pelvic and perineal pain [R10.2]Start: 05-17-2023 End: 19-46-7590Alxhch pelvic examinationMegan Billow DO Work Phone: Obstetrics/GynecologyComment on above:Endometriosis (Primary Dx); Pelvic and perineal painStart: 05-17-2023 End: 64-49-2753Ehsbckfifbbe consultation with kikaCharlene Rodriguez DO Work Phone: Dre ARCHULETANEW [facility] AT DANVERStart: 05-17-2023 End: 21-71-9764qqvfifejslZLCCF ALAN BAXTERFacility:[facility] Start: 60-92-6977Rprbfsftl encounterMekevin Billfanny DO Work Phone: GynecologyComment on above:Vaginal BleedingStart: 05-01-2023 End: 74-29-5340laovtcluwcYKTTAYang Stanleycility:[facility] Start: 05-01-2023 End: 83-20-0648Fabrljd encounter Lisa Downs APRN.NUTRITION AIDES TEACHER Work Phone: GynecologyComment on above:Chronic pelvic pain in female (Primary Dx); Constipation, unspecified constipation type; High-tone pelvic floor dysfunction; Diastasis of rectus abdominis; Dysmenorrhea; Other specified dyspareuniaStart: 46-01-1605ncayydrluhEeucm Billow DO Work Phone: Obstetrics/GynecologyComment on above:painfulStart: 01-31-2023 End: 56-16-1936Pppaemvfn department patient visitAstrit Phuc [facility] Start: 12-30-2022 End: 77-78-9078Mbpsufy encounter procedureAstrit Phuc [facility] Start: 12-05-2022 End: 63-65-1087kykdhwpcxxKNBEIsland Hospital SHSStart: 12-05-2022 End: 52-63-8951Zhxusk outpatient visit 15 minutesGin Leonorsrinath DAY Work Phone: [facility] HospitalComment on above:Pre- eclampsia, severe, delivered (Primary Dx)Start: 11-28-2022 End: 02-18-8135Rdfllgogyx and management of inpatientOrlando Health South Seminole HospitalStart: 11-28-2022 End: 09-05-0627Dlqqmxpcwm and management of inpatientSt. [facility] Work Phone: [facility] POSTPARTUMComment on above:Preeclampsia, severe, third trimester (Primary Dx)Start: 11-28-2022 End: 93-28-5137Taf-admission assessmentGregrosa DORSEY [facility] Start: 11-27-2022 End: 17-65-2241OV TriageGregrosa DORSEY [facility] Start: 07-14-2022 End: 01-71-1576Ikekfkyhy department patient visitCharlotteshayjunior Villagomez [facility] Start: 07-14-2022 End: 76-87-2367XA TriageNathan POP [facility] Start: 04-25-2022 End: 57-58-2528Qlquurd encounter procedureCAMERON DITTY [facility] Start: 04-18-2022 End: 00-43-1184nkncgvwvjfLiiywuc Ditty Other [employer] Other Start: 15-31-4489Hapjgmz encounter procedureCamdorene CarrilloyFPG GastroenterologyStart: 50-50-4520Ovfuqt outpatient visit 15 minutes Charlene Rodriguez DO Work Phone: [phone]-VQOMJ-[address] Work Phone: Start: 09-29-2021 End: 05-94-7426yhqxpfcqbiZAGFS ROWENA [facility]pe[facility] HospitalStart: 09-29-2021 End: 01-68-9248jmeiknwautYSSUW ROWENAWVUMedicine [facility] HospitalStart: 98-25-3238PEZDFGdxak Billow DO Work Phone: [phone]-BKPMY-[address] Work Phone: Start: 56-64-0647BCSNMRXHFE, Provider: Charlene Rodriguez, Status: Pen, Time: 2:45 Ina Chau MD Work Phone: [phone]-Fjwqmcy-[place] Work Phone: Start: 85-75-1006Uuasg Oswaldo Chau MD Work Phone: [phone]-Bixrhub-[place] Work Phone: Procedures DateProcedureProcedure DetailPerforming ClinicianStart: 99-55-0156NQ OB BPP W NON-STRESSKristina Elsa ADVERTISING ASSISTANT MANAGER Work Phone: Start: 97-69-8541Vlffi dip stick/tablet rgnt non-auto w/o micrscpCorey Kiesha DO Work Phone: Start: 58-20-4210GS OB BPP W NON-STRESSKristina Elsa ADVERTISING ASSISTANT MANAGER Work Phone: Start: 66-31-9801AB OB BPP W NON-STRESSKristina Elsa ADVERTISING ASSISTANT MANAGER Work Phone: Start: 17-80-3517Vydcm dip stick/tablet rgnt non-auto w/o micrscpCorey Kiesha DO Work Phone: Start: 77-88-7210OIA BUNCorey Kiesha DO Work Phone: Start: 31-04-3242QOP URIC ACIDCorey Kiesha DO Work Phone: Start: 03-15-0396DOE ALTCorey Kiesha DO Work Phone: Start: 90-93-2392CHJ ASTCorey Kiesha DO Work Phone: Start: 17-30-3427BGF CREATININECorey Kiesha DO Work Phone: Start: 14-24-5069LDS URINE T PROTEIN CREAT RATIOCorey Kiesha DO Work Phone: Start: 67-96-0229Jlwpk dip stick/tablet rgnt non-auto w/o micrscpKristina Elsa ADVERTISING ASSISTANT MANAGER Work Phone: Start: 82-84-8727KXE TOTAL PROTEIN 24 HOUR URINE Generic External Data ProviderStart: 40-50-8335EB OB BPP W NON-STRESS Steph Elsa ADVERTISING ASSISTANT MANAGER Work Phone: Start: 67-54-8621LWK URINE T PROTEIN CREAT RATIO Generic External Data ProviderStart: 80-28-9028WGF CBC WITH AUTO DIFFGeneric External Data ProviderStart: 10-19-8539Cbatv dip stick/tablet rgnt non-auto w/o micrscpKristina Elsa ADVERTISING ASSISTANT MANAGER Work Phone: Start: 88-18-8729Bzjfqrew identified in Urine by CultureGeneric External Data ProviderStart: 48-72-5937Jtxfshc quantitative blood xcpt reagent stripNot In System Ref ProvStart: 20-73-8875YASLNU HOUR GLUCOSE TOLERANCE 100 GM LOADNot In System Ref ProvStart: 05-07-4725Alxpu dip stick/tablet rgnt non-auto w/o micrscpCorey Kiesha DO Work Phone: Start: 67-18-4675MOA 1H POST 50G LOADNot In System Ref ProvStart: 97-26-9054KHT, SERUM, OPEN SPINA BIFIDACorey Kiesha DO Work Phone: Start: 32-58-8325Rpvlu dip stick/tablet rgnt non-auto w/o micrscpCorey Kiesha DO Work Phone: Start: 60-11-3975AWSKHGMEH VAGINITIS (HTRX)Nathan Kiesha DO Work Phone: Start: 28-09-6137Mgrvv dip stick/tablet rgnt non-auto w/o micrscpCorey Kiesha DO Work Phone: Start: 41-76-7510Yetbd dip stick/tablet rgnt non-auto w/o micrscpCorey Kiesha DO Work Phone: Start: 12-39-9518Qhqwyeej screenMadhuri Monroy MD Work Phone: Start: 97-26-4564Kjlx scrn 1+ class nonchromoNot In System Ref ProvStart: 66-41-6385Qhpvpqqufu glycosylated e0oBmgpf R Kiesha DO Work Phone: Start: 96-08-4937Vdyahhans c antibodyNot In System Ref ProvStart: 49-98-2048LWG 1&2 AB/AG SCREEN (P24 AG)Not In System Ref ProvStart: 85-85-1392Aiab ia hepatitis b surface antigenNot In System Ref ProvStart: 73-53-4822SFFQ AND SCREENNot In System Ref ProvStart: 20-20-1976DRV TESTCorey Kiesha DO Work Phone: Start: 21-17-5022Badbr dip stick/tablet rgnt non-auto w/o micrscpCorey Kiesha DO Work Phone: Start: 24-54-0954OG OB TRANSVAGINALCorey Kiesha DO Work Phone: Start: 64-03-9265CYS,APTIMA HPV,AGE GDLNCorey Kiesha DO Work Phone: Start: 70-83-3677Rmnyiwppqyt observation [Identifier] in Cervix by Cyto stainCorey Kiesha DO Work Phone: Start: 78-39-1437DVC 12-LEADCorey Kiesha DO Work Phone: Start: 78-25-5839PZ PELVIS W/ TRANSVAGINALCorey Kiesha DO Work Phone: Start: 92-76-8206Ddlw cerv/vag auto thin layer prep mnl screenCorey Kiesha DO Work Phone: Start: 12-95-8005Jwg pelvis w/o & w/contrast material Charlene Billow DO Work Phone: Start: 04-59-2809Gkxpq count platelet automatedMichael O'Cormier GRADUATE ENGINEER - BONE CRUSHER Work Phone: Start: 32-03-5689Vcdcc count platelet automatedCassie Constantino MD Work Phone: Start: 10-15-1059Dtrfj streptococcus group b amplified probe tqCassie Constantino MD Work Phone: Start: 98-47-9777QVZ and Rh group [Type] in Blood by Confirmatory Carmine Constantino MD Work Phone: Start: 92-20-9770Dcbok typing serologic Cait Constantino MD Work Phone: Start: 33-57-3444Kjjnlqomzvzps metabolic panelCassie Constantino MD Work Phone: Start: 25-05-3436Cgupsbps hiv-1&hiv-2 single result Megadyne [phone]: 61-02-4220Etmv ia hepatitis b surface antigenMegaalexis [phone]: 39-17-6808IspudzwmyxMPYPZXA EDWARD Start: 08-30-2020 End: 84-31-0051Isjuadud screenComment on above:Performed By: #### T+S #### [facility] [address] [place], [place] [address]Mvcyo Comment: TEST TYPE + SCREEN WAS CANCELLED, 08/30/2020 13:37 JOP.Performed By: #### T+S #### [facility] [address] [place], [place] [address]Ehiuo: 24-22-1922ZSBNC SHOULDER OPEN DISTAL CLAVICLE EXCISION 1CAMERON LOVETerapeak Comment on above:RIGHT SHOULDER OPEN DISTAL CLAVICLE EXCISIONRIGHT SHOULDER OPEN DISTAL CLAVICLE EXCISIONAppendectomyCAMERON LOVETerapeak betamethasone (substance)Fredi WILLIAN comment on above:Dose #1: 11/27/22ColonoscopyCAMERON EDWARD Endoscope, device (physical object)[place] LaparoscopyTeri Chau MD Work Phone: Plan of Treatment DateCare ActivityDetailAuthorStart: 85-86-2107Xzzzac Vaccines (1 of 2)Zoster Vaccines (1 of 2)[facility]a HealthStart: 61-71-6322Acxhombab for malignant neoplasm of cervixNOMS HealthcareStart: 58-67-0877Fegsqhfmb for malignant neoplasm of cervixPap SmearNOMS HealthcareStart: 52-95-6085Drkxb BMI ScreeningAdult BMI ScreeningProDiley Ridge Medical Centerca Health SystemStart: 10-94-3258Itplabz ScreeningTobacco ScreeningProDiley Ridge Medical Centerca Health SystemStart: 78-75-3752Gepla BMI ScreeningAdult BMI ScreeningProDiley Ridge Medical Centerca Health SystemStart: 10-48-1620Lzdmf BMI ScreeningAdult BMI ScreeningProMedica Health SystemStart: 11-03-2025 End: 27-15-7542Whomckc encounter souwpzseh13/09/2025 2:30 PM EST Office Visit M[facility]- [facility] at [facility] [address] [place] [phone] Chivo Springer PA-C [address] [facility] [address] [address] [facility]: 10-14-2025 End: 81-74-0645Qbtxnih encounter suclvutvz64/19/2025 3:30 PM EST Routine [facility] Patti YOUNGN [address] [place], [id number] Nathan Pop DO [address] [place] [address] NOMShalonda IYERGYNStart: 10-08-2025 End: 60-07-3905Bkyrije encounter amobawhwl62/13/2025 8:00 AM EST Appointment [facility] [place] [address] [facility] [address] [place] [phone] Medicine [place] RidgeStart: 10-06-2025 End: 95-57-0793Kavubvswqock consultation with roouzft2210/06/2025 2:30 PM EST Telemedicine M[facility]- [facility] at [facility] [address] [place] [phone] Chivo Springer PA-C [address] [facility] [address] [address] [facility]: 10-05-2025 End: 20-56-5586Djooxrs encounter fnliwyepb93/10/2025 3:00 PM EST Office Visit [facility]- [facility] at [facility] [address] [place] [phone] Chivo Springer PA-C [address] [facility] [address] [address] [facility]: 10-05-2025 End: 44-56-5743Gqwzjdbbmcbp consultation with vatycos8310/05/2025 3:00 PM EST Telemedicine M[facility]- Medicine at [facility] [address] [place] [id number] Chivo Springer PA-C [address] [address] [facility]: [id number] ( or age 60+ yrs) (1 - Risk 1-dose series)RSV ( or age 60+ yrs) (1 - Risk 1-dose series)[facility] 09-[facility]25 End: [id number] encounter procedureNOMS Patti YOUNGNComment on above: ArrivedStart: 09-16-2025 End: [id number] biophysical profile w non stress testUS biophysical profile w non stress test Imaging Routine Gestational diabetes mellitus (GDM),antepartum, gestational diabetes method of control unspecified ([facility]) Expected: 09/16/2025, Expires: 09/16/2026NOMS HealthcareComment on above:Expected: 09/16/2025, Expires: 09/16/2026Start: 09-15-2025 End: 25-32-0313Lbglwfu encounter vtmnitcvl58/21/2025 2:50 PM EDT Routine NOMShalonda MOODY [address], [id number] Zenobia Gutierrez PA [address] [place] [address] NOMShalonda Izaguirrert: 09-10-2025 End: 50-28-2390Ouztrfhapkyn consultation with rbiimju2109/10/2025 11:00 AM EDT Telemedicine [facility] [place] [address] [phone] Madhuri Monroy MD [address] [facility], [address] [place] [address] [facility]: 09-10-2025 End: 08-42-7325Jpgeczv encounter jwcoocsrf56/16/2025 9:45 AM EDT Appointment [facility] [place] [address] [phone] [facility] 09-07-2025 End: 65-98-4876Uqjbzis encounter procedureNOMS BCP OBStart: 09-04-2025 End: 02-78-9980Fwmlygd encounter ssaecdlvq24/10/2025 3:00 PM EDT Office Visit Maternal- Medicine at [facility] [address] [facility] [place] [phone] Mine Denise MD [address] [facility], [address] [place] [address] [facility] 09-03-2025 End: 63-40-0344Xexokwl encounter procedureNOMS [place] OBGYNComment on above: [facility]Start: 08-27-2025 End: 50-97-9702Ubsllpn encounter vadikfuee37/02/2025 3:20 PM EDT Routine NOMShalonda [place] OBGYN [address], [id number] Steph Keane NP [address] [place] [address] NOMS Patti Izaguirrert: 08-27-2025 End: 10-05-5320Tmoodhy aminotransferase [Enzymatic activity/volume] in Serum or PlasmaALT Lab Routine induced hypertension, antepartum (HHS-HCC) Expected: 08/27/2025 (Approximate), Expires: 08/27/2026[facility] HealthcareComment on above:Expected: 08/27/2025 (Approximate), Expires: 08/27/2026Start: 08-27-2025 End: 54-85-1504Vnvehwixe aminotransferase [Enzymatic activity/volume] in Serum or PlasmaAST Lab Routine induced hypertension, antepartum (HHS-HCC) Expected: 08/27/2025 (Approximate), Expires: 08/27/2026[facility] HealthcareComment on above:Expected: 08/27/2025 (Approximate), Expires: 08/27/2026Start: 08-27-2025 End: 21-66-8174LLG W Auto Differential panel - BloodCBC and differential Lab Routine induced hypertension, antepartum (HHS-HCC) Expected: 12/2024 (Approximate), Expires: 08/27/2026[facility] HealthcareComment on above: Expected: 08/27/2025 (Approximate), Expires: 08/27/2026art: 08-27-2025 End: 23-06-5161Iffylpovvq [Mass/volume] in Serum or PlasmaCreatinine Lab Routine induced hypertension, antepartum (HHS-HCC) Expected: 08/27/2025 (Ap proximate), Expires: 08/27/2026[facility] Healthcare Work Phone: comment on above:Expected: 08/27/2025 (Approximate), Expires: 08/27/2026Start: 08-27-2025 End: 85-00-2395Muffdef dehydrogenase [Enzymatic activity/volume] in Serum or Plasma by Lactate to pyruvate reactionLactate dehydrogenase Lab Routine induced hypertension, antepartum (HHS-HCC) Expected: 08/27/2025, Expires: 08/27/2026[facility] HealthcareComment on above:Expected: 08/27/2025, Expires: 08/27/2026Start: 08-27-2025 End: 28-14-6945Vdtjsvs, urine, 24 hourProtein, urine, 24 hour Lab Routine induced hypertension, antepartum (HHS-HCC) Expected: 08/27/2025 (Approximate), Expires: 08/27/2026[facility] HealthcareComment on above:Expected: 08/27/2025 (Approximate), Expires: 08/27/2026Start: 08-27-2025 End: 74-24-7502Cl and pttPt and ptt Lab Routine induced hypertension, antepartum (HHS-HCC) Expected: 08/27/2025, Expires: 08/27/2026[facility] Comment on above:Expected: 08/27/2025, Expires: 08/27/2026Start: 08-27-2025 End: 60-93-4428Xrlis [Mass/volume] in Serum or PlasmaUric acid Lab Routine induced hypertension, antepartum (HHS-HCC) Expected: 08/27/2025 (Bouchra roximate), Expires: 08/27/2026[facility] HealthcareComment on above:Expected: 08/27/2025 (Approximate), Expires: 08/27/2026Start: 08-27-2025 End: 59-66-8959Uiwa nitrogen [Mass/volume] in Serum or PlasmaBUN Lab Routine induced hypertension, antepartum (HHS-HCC) Expected: 08/27/2025, Expires:08/27/2026[facility] HealthcareComment on above:Expected: 08/27/2025, Expires: 08/27/2026Start: 08-27-2025 End: 75-27-5739AH biophysical profile w non stress testUS biophysical profile w non stress test Imaging Routine induced hypertension, antepartum ([facility]-HCC) Gestational diabetes mellitus (GDM) in second trimester, gestational diabetes method of control unspecified ([facility]-HCC) Expected: 08/27/2025 (Approximate), Expires: 02/25/2026[facility] HealthcareComment on above:Expected: 08/27/2025 (Approximate), Expires: 02/25/2026Start: 08-24-2025 End: 64-02-1292hykxnjupeu86/29/2025 1:30 PM EDT Support Visit Maternal- Medicine at [facility] [address] [place] [phone] Teena Sarmiento, RN [address] [facility] [place] [address] Kerline Augustin, RD [address] [facility] [address] [place] [address] [facility]: 08-24-2025 End: 26-91-1492Lmejtms encounter zfwrwucof92/29/2025 11:00 AM EDT Office Visit NOMS BCP OB [address] [place] [phone] Nathan Pop, DO [address] [place] [address] NOMS BCP OBStart: 08-12-2025 End: 21-93-7164Dtbvioi encounter dpyudsqbs79/17/2025 2:40 PM EDT Routine NOMShalonda YOUNGN [address], [id number] Nathan Pop, DO [address] [place] [address] NOMShalonda [place] OBGYNStart: 08-12-2025 End: 04-54-4474Edmxkvxdlyw of glucose 3 hours after glucose challenge for glucose tolerance testGlucose tolerance, 3 hours Lab Routine Elevated glucose tolerance test Expected: 08/12/2025 (Approximate), Expires: 08/12/2026[facility] Work Phone: comment on above:Expected: 08/12/2025 (Approximate), Expires: 08/12/2026Start: 08-12-2025 End: 99-85-0590Gaojnuqqasfg / ancillary services exhpzzhlai53/17/2025 2:00 PM EDT Ancillary Procedure NOMS Patti YOUNGN [address] [place] [address] [place] [address] WTTT Patti OBGYNStart: 07-31-2025 End: 54-71-1882XJJ W Auto Differential panel - BloodCBC and differential Lab Routine Hypertension, unspecified type Wellness examination Expected: 07/31/2025 (Approximate), Expires: 08/29/2025[facility] Work Phone: Comment on above:Expected: 07/31/2025 (Approximate), Expires: 08/29/2025Start: 07-31-2025 End: 01-09-5693Wrmesgbpolxkt metabolic 2000 panel - Serum or PlasmaComprehensive metabolic panel Lab Routine Hypertension, unspecified type Wellness examination Expected: 07/31/2025 (Approximate), Expires: 08/29/2025[facility] HealthcareComment on above:Expected: 07/31/2025 (Approximate), Expires: 08/29/2025Start: 07-31-2025 End: 31-66-8069Vholt 1996 panel - Serum or PlasmaLipid panel Lab Routine Wellness examination Lipid screening Expected: 07/31/2025 (Approximate), Exp ires: 08/29/2025[facility] HealthcareComment on above:Expected: 07/31/2025 (Approximate), Expires: 08/29/2025Start: 07-30-2025 End: 50-80-4692Wuxyybz encounter rqrewimvu04/04/2025 3:40 PM EDT Office Visit [facility] [address] [place] [address] [place] [address] Eliceo Beltran DO [address] [place] [address] [place] [address] ArrivedNOCritical access hospital 230Comment on above:ArrivedStart: 86-32-4613QPZID-19 Vaccine ( season)COVID-19 Vaccine ( season)[facility] HealthcareStart: 07-27-2025 Influenza vaccinationNOPR HealthcareStart: 07-15-2025 End: 29-14-1060Avybgoh encounter jiuwaptjb01/20/2025 3:30 PM EDT Routine NOMS Patti OBGYN [address] [facility] [address] [place], [id number] Nathan Pop, [address] [place] [address] NOMS Patti OBGYNStart: 07-15-2025 End: 41-21-6225Hznmvtgefwpg / ancillary services vpndlafefv15/20/2025 2:30 PM EDT Ancillary Procedure NOMS Patti OBGYN [address] [facility] [place] [phone] NOMS [place] OBGYNStart: 07-15-2025 End: 44-39-3654KEV panel - Blood by Automated countCBC Lab Routine Diabetes mellitus screening Expected: 07/15/2025 (Approximate), Expires: 07/15/2026[facility] Work Phone: comment on above:Expected: 07/15/2025 (Approximate), Expires: 07/15/2026Start: 07-15-2025 End: 19-98-3908Lqkatgnkssr of glucose 1 hour after glucose challenge for glucose tolerance testGlucose tolerance, 1 hour Lab Routine Diabetes mellitus screening Expected: 07/15/2025 (Approximate), Expires: 07/15/2026[facility] HealthcareComment on above:Expected: 07/15/2025 (Approximate), Expires: 07/15/2026Start: 06-22-2025 End: 37-77-4724Ynlinty encounter apfarqmyt21/28/2025 2:10 PM EDT Routine NOMS Patti OBGYN [address] [facility] [address] [place], [id number] Nathan Pop, [address] [place] [address] ArrivedNOMS Patti OBGYNComment on above:ArrivedStart: 06-22-2025 End: 86-87-9819Phhsk fetoprotein, maternalAlpha fetoprotein, maternal Lab Routine Second trimester ([facility]) 17 weeks gestation of ([facility]) Expected: 06/22/2025 (Approximate), Expires: 12/23/2025[facility] Healthcare Comment on above:Expected: 06/22/2025 (Approximate), Expires: 12/23/2025Start: 06-22-2025 End: 06-38-9558LS for pregnancyUS OB 14+ weeks anatomy scan Imaging Routine Screening, , for anatomic survey ([facility]) Expected: 06/22/2025, Expires: 09/22/2025[facility] Healthcare Work Phone: comment on above:Expected: 06/22/2025, Expires: 09/22/2025Start: 05-25-2025 End: 11-24-9876Aubsgjw encounter lmguayixl58/30/2025 2:40 PM EDT Routine NOMS BCP OB [address] [facility] [place] [phone] Nathan Pop, DO [address] [facility] [place] [address] NOMS BCP OBStart: 05-01-2025 End: 14-36-2012DPB/RhABO/Rh Lab Routine Missed menses , unspecified gestational age Expected: 05/01/2025 (Approximate), Expires: 05/01/2026[facility] HealthcareComment on above:Expected: 05/01/2025 (Approximate), Expires: 05/01/2026Start: 05-01-2025 End: 92-04-5949Wsxbx type and Indirect antibody screen panel - BloodType and screen Lab Routine Missed menses , unspecified gestational age Expected: 05/01/2025 (Approximate), Expires: 05/01/2026[facility] Healthcare Work Phone: comment on above:Expected: 05/01/2025 (Approximate), Expires: 05/01/2026Start: 05-01-2025 End: 50-15-3020Xzhbk of abuse panel - Urine by Screen methodRapid drug screen, urine Lab Routine , unspecified gestational age Encounter for supervision of normal first in first trimester Expected: 05/01/2025 (Approximate), Expires: 05/01/2026N[facility]S HealthcareComment on above:Expected: 05/01/2025 (Approximate), Expires: 05/01/2026Start: 01-19-2025 End: 33-55-4089Nhdubji encounter procedureNOMS BCP OBComment on above:Arrived Start: 01-19-2025 End: 19-40-0216FakromedhhstWfqairlbplnc Lab Routine Pain in female genitalia on intercourse Endometriosis Expected: 01/19/2025(Approximate), Expires: 01/19/2026 [facility] Work Phone: comment on above:Expected: 01/19/2025 (Approximate), Expires: 01/19/2026Start: 08-18-2024 End: 50-52-8822Ccvxjep encounter procedureNOMS BCP OBComment on above:Arrived Start: 01-75-3328Cjqwdqugj vaccinationAvita Health System Bucyrus Hospitaltart: 07-22-2024 End: 12-46-2917GN for pregnancyUS PELVIS-TRANSVAG IF INDICATED Imaging Routine Dysmenorrhea, unspecified Expected: 07/22/2024 (Approximate), Expires: 07/22/2025[facility] Work Phone: comment on above:Expected: 07/22/2024 (Approximate), Expires: 07/22/2025Start: 06-23-2024 End: 55-86-2967Ushrzjj encounter yvudgpxij13/29/2024 10:30 AM EDT Office Visit Obstetrics/Gynecology [address] [address] Charlene Rodriguez DO [address] [place] [address] 2 WEEK POST OPObstetrics/GynecologyComment on above:2 WEEK POST OPStart: 05-27-2024 End: 56-16-7635Baitgzeek to same day surgery pctuxx6905/27/2024 7:30 AM EDT - 05/27/2024 9:30 AM EDT Surgery [facility] Surgery [address] [place] [address] Charlene Rodriguez, DO [address] [place] [address] LAPAROSCOPY FULGURATION OR EXCISION OF LESIONS OF THE OVARY PELVIC VISCERA OR PERITONEAL SURFACE BY ANY METHODChillicothe Va Medical Center SurgeryComment on above:LAPAROSCOPY FULGURATION OR EXCISION OF LESIONS OF THE OVARY PELVIC VISCERA OR PERITONEAL SURFACE BYANY METHODStart: 05-27-2024 End: 39-12-5311Elba fulg/exc ovary viscera/peritoneal surfaceLAPAROSCOPY FULGURATION OR EXCISION OF LESIONS OF THE OVARY PELVIC VISCERA OR PERITONEAL SURFACE BYANY METHOD Endometriosis 05/27/2024 7:30 AM EDTME ORStart: 05-27-2024 Subsequent hospital visit by kvtncyviw26/02/2024 7:30 AM EDT Hospital Encounter [facility] Surgery [address] [place] [address] Charlene Rodriguez, DO [address] [place] [address] [phone] (F [phone]) Endometriosis [N80.9][facility] SurgeryComment on above:Endometriosis [N80.9]Start: 97-36-8435Tgfsvpbeu vaccinationInfluenza Vaccine (#1)NOMS HealthcareComment on above:Postponed from 07/27/2023 (Patient Refused)Start: 05-20-2024 End: 83-42-8166yrpkmesvza34/25/2024 10:00 AM EDT [facility] MAINTENANCE [employer] [facility] [facility] [address] [address] Pires, Uro Head Of Marketing Adometry Nurse [address] [address] RN GLENNGYN UROL [place] MOBComment on above:RN TEACHINGStart: 04-22-2024 End: 55-08-5950Pptkemd encounter ysvchdccb73/28/2024 9:00 AM EDT Office Visit NOMS [facility] [address] [place] [address] Denny Rodríguez MD [address] [place] [address] NOMS SEP FMStart: 93-47-1608GInS,Tdap and Td Vaccines (7 - Td or Tdap)DTaP,Tdap and Td Vaccines (7 - Td or Tdap)[facility] SystemStart: 94-82-0276LIuZ/Tdap/Td Vaccines (7 - Td or Tdap)DTaP/Tdap/Td Vaccines (7 - Td or Tdap)[facility]Start: 31-95-8701Rhgui microalbumin profileDTaP,Tdap,Td Vaccine (7 - Td or Tdap)[facility] Hospitaltart: 01-30-2024 End: 96-51-7758Gvdykff encounter jojhkixun34/06/2024 11:10 AM EST Consult NOMS [facility] OB [address] [facility] [place] [address] Nathan Pop DO [address] [place] [address] NOMS [facility] OBStart: 01-15-2024 End: 10-70-0089Kdvduefheyje / ancillary services cjezghubek51/20/2024 8:00 AM EST Ancillary Procedure NOM[facility] [address] [facility] [place] [address] NOMS [facility] OBStart: 01-10-2024 End: 17-40-2374JN for pregnancyUS PELVIS-TRANSVAG IF INDICATED Imaging Routine Pelvic pain in female Expected: 01/10/2024 (Approximate), Expires: 01/10/2025 [facility] Work Phone: comment on above:Expected: 01/10/2024 (Approximate), Expires: 01/10/2025Start: 02-52-0685Kgseqwndrb Health ScreeningBehavioral Health ScreeningAvita Health System Bucyrus Hospitaltart: 85-73-3329Ioevldtcta AssessmentDepression AssessmentCleOhioHealth Southeastern Medical Centertart: 37-32-1160Avjmd-19 Vaccine ( season) Covid-19 Vaccine ( season)[facility] Hospitaltart: 01-24-8249Zjtghqydd vaccinationAvita Health System Bucyrus Hospitaltart: 44-59-1932LFUDTGLKBS ASSESSMENTDEPRESSION ASSESSMENTAvita Health System Bucyrus Hospitaltart: 63-49-7603Cpgejllgp vaccinationInfluenza Vaccine (#1)[facility] HospitalStart: 82-96-4970AON, Provider: Charlene Rodriguez, Status: Pen, Time: 1:30 PMFUV, Provider: Charlene Rodriguez, Status: Pen, Time: 1:30 PM NL-WDUXZ-Skwkjp 320 Work Phone: Start: 76-45-9222HFM, Provider: Charlene Rodriguez, Status: Pen, Time: 11:15 AMFUV, Provider: Charlene Rodriguez, Status: Pen, Time: 11:15 AM LY-HJEAX-Ryorgw 320 Work Phone: Start: 09-62-1510CMD TESTINGPAP TESTINGAvita Health System Bucyrus Hospitaltart: 03-54-4625Pfbqfaqel for malignant neoplasm of cervixAvita Health System Bucyrus Hospitaltart: 86-24-3748XZpT,Tdap and Td Vaccines (1 - Tdap)DTaP,Tdap and Td Vaccines (1 - Tdap)[facility] Centertart: 50-76-3401QDhQ/Tdap/Td Vaccines (1 - Tdap)DTaP/Tdap/Td Vaccines (1 - Tdap)[facility] HospitalStart: 42-16-5958Qgmou microalbumin profileAvita Health System Bucyrus Hospitaltart: 64-14-5269Pbxdh BMI Follow Up Plan Adult BMI Follow Up PlanNovant Health Forsyth Medical Centertart: 77-76-6007Pcbbn BMI ScreeningAdult BMI ScreeningNovant Health Forsyth Medical Centertart: 10-11-5715AVOGSZ PCP TEAM CHRONIC DISEASE VISITANNUAL PCP TEAM CHRONIC DISEASE VISITBarney [facility] Start: 08-81-2238UR CONTROLLED (<130/80)BP CONTROLLED (<130/80)[facility] Start: 08-28-3307UBDKGTFWO C SCREENINGHEPATITIS C SCREENINGBarney Children'S Medical Center Start: 21-40-0489Rqhwlcbwd C screeningHepatitis C ScreeningBarney Children'S Medical Center Start: 30-62-1146UHB SCREENINGHIV SCREENINGAvita Health System Bucyrus Hospitaltart: 68-13-0072JFA screeningHIV ScreeningAvita Health System Bucyrus Hospitaltart: 36-16-0075Uilkfpd of varicella vaccinationVaricella Vaccines (1 of 2 - 13+ 2-dose series)[facility] SystemStart: 23-63-3367Oljagpngyx ScreeningDepression ScreeningNovant Health Forsyth Medical Centertart: 13-64-9247Pyaykuq ScreeningTobacco ScreeningNovant Health Forsyth Medical Centertart: 66-72-1267Oravpnhzj vaccinationVaricella Vaccines (1 of 2 - 2-dose childhood series)[facility] HospitalStart: 91-14-3290HXR Vaccines (1 of 1 - Standard series)MMR Vaccines (1 of 1 - Standard series)[facility] HospitalStart: 15-76-6963Kgosrseqg vaccinationVaricella Vaccines (1 of 2 - 2-dose childhood series)[facility] Start: 22-34-5968ACHRS-19 VACCINE (#1)COVID-19 VACCINE (#1)[facility] Start: 45-71-4453LQEFOAUMB B (1 of 3 - 3-dose series)HEPATITIS B (1 of 3 - 3- dose series)[facility] Hospitaltart: 18-60-5307Qubvwegpz B Vaccine (1 of 3 - 3- dose series)Hepatitis B Vaccine (1 of 3 - 3-dose series)[facility] Hospitaltart: 40-58-9151Jzngpsaat B Vaccines (1 of 3 - 3-dose series)Hepatitis B Vaccines (1 of 3 - 3-dose series)[facility] HospitalStart: 14-41-2376Ciobz panelLipid PanelSumma HealthBacteria identified in Urine by CultureUrine culture Microbiology Routine Missed menses Ordered: 05/01/2025[facility] HealthcareComment on above:Ordered: 05/01/2025BC W Auto Differential panel - BloodCBC and differential Lab Routine Missed menses , unspecified gestational age Ordered: 05/01/2025[facility] HealthcareComment on above:Ordered: 05/01/2025ytology Cervical or vaginal smear or scraping studyPap Smear Pathology and Cytology Routine Well woman exam with routine gynecological exam Ordered: 08/18/2024[facility] Healthcare Work Phone: comment on above:Ordered: 08/18/2024Hemoglobin A1c/Hemoglobin.total in BloodHemoglobin A1c Lab Routine Missed menses , unspecified gestational age Ordered: 05/01/2025[facility] HealthcareComment on above: Ordered: 05/01/2025Hepatitis B virus surface Ag [Presence] in Serum or Plasma by ImmunoassayHepatitis B surface antigen Lab Routine Missed menses , unspecified gestational age Ordered: 05/01/2025[facility] HealthcareComment on above: Ordered: 05/01/2025Hepatitis C virus Ab [Presence] in Serum or Plasma by ImmunoassayHepatitis C antibody Lab Routine Missed menses , unspecified gestational age Ordered: 05/01/2025[facility] HealthcareComment on above:Ordered: 05/01/2025HIV-1/HIV-2 antigen/antibody combination immunoassayHIV-1 and HIV-2 antibodies Lab Routine Missed menses , unspecified gestational age Ordered: 05/01/2025[facility] HealthcareComment on above:Ordered: 05/01/2025 End: 33-57-8707Nwf pelvis w/o & w/contrast materialMRI FEMALE PELVIS WO/W IVCON Radiology Routine Pelvic and perineal pain 1 Occurrences [facility] 05/17/2023 [facility] Work Phone: Comment on above:1 Occurrences starting 05/17/2023 until 4Reagin Ab [Presence] in Serum by RPRRPR Lab Routine Missed menses , unspecified gestational age Ordered: 05/01/2025[facility] Comment on above:Ordered: 05/01/2025Rubella antibody, IgGRubella antibody, IgG Lab Routine Missed menses , unspecified gestational age Ordered: 04/2025[facility] HealthcareComment on above:Ordered: 05/01/2025 End: 49-34-1682AwlqugSaint [facility] Work Phone: Comment on above:Once (Lab) for 1 Occurrences starting 11/30/2022 until 11/30/2022, 1 completed End: 65-95-1370VG for pregnancyUS OB follow up transabdominal approach Imaging Routine Gestational diabetes mellitus (GDM), antepartum, gestational diabetes method of control unspecified (HHS-HCC) every 4 weeks for 2 Occurrences starting 09/16/2025 until 12/17/2025[facility] Work Phone: comment on above:every 4 weeks for 2 Occurrences starting 09/16/2025 until 6C[facility] Immunizations Immunization DateImmunizationNotesCare RzegfnzrPfdydihu18-11-5808fyfryujya A vaccine, adult dosageCorey Kiesha DO Work Phone: [facility] SystemXxbcjygbhd42-69-2219ldbrt papilloma virus vaccine, quadrivalentCorey Kiesha DO Work Phone: [facility] SystemTjjtlalpuj56-30-9205dpgxazyym, seasonal, injectable, preservative freeCorey Kiesha DO Work Phone: [facility] SystemOstukmbbny51-48-9848adyfezjxk virus vaccine, unspecified formulationGina Moschella DO Work Phone: [facility] HospitalAcampb19-20-8041ncwqy papilloma virus vaccine, quadrivalentCorey Kiesha DO Work Phone: [facility] SystemYuthwzevct05-92-0043yipmffinu A vaccine, adult dosageCorey Kiesha DO Work Phone: [facility] SystemOwqepjspaf66-65-5449tgovo papilloma virus vaccine, quadrivalentCorey Kiesha DO Work Phone: [facility] SystemApoaxkjycv75-98-8837qdezigt toxoid, reduced diphtheria toxoid, and acellular pertussis vaccine, adsorbedCorey Kiesha DO Work Phone: [facility] SystemLuoagmzksc50-00-1949uspjqgbavpanw polysaccharide (groups A, C, Y and W-135) diphtheria toxoid conjugate vaccine (MCV4P)Ntahan Kiesha DO Work Phone: [facility] SystemBuatdcixmy18-96-7364pjqhjxpsdi, tetanus toxoids and acellular pertussis vaccine, unspecified formulationCorey Kiesha DO Work Phone: [facility] SystemBesanczftv37-84-8865emcibzh, mumps and rubella virus vaccineCorey Kiesha DO Work Phone: [facility] SystemLxlebvjzoq90-26-9212ckbltxmvkx vaccine, inactivatedCorey Kiesha DO Work Phone: [phone] SystemLrpcwkofzo91-41-9305lbuoquyeif, tetanus toxoids and acellular pertussis vaccine, unspecified formulationCorey Kiesha DO Work Phone: [phone] SystemVgjajxmovm99-19-7330ACX-Cqilpdjuoyf influenzae type b conjugate vaccineCorey Kiesha DO Work Phone: [phone] SystemFtpquixfbh50-43-4077lvrmxmbdg B vaccine, pediatric or pediatric/adolescent dosageCorey Kiesha DO Work Phone: [phone] SystemOtsfdzpglp94-12-5988glppzld, mumps and rubella virus vaccineCorey Kiesha DO Work Phone: [phone] [place], [place] [address]Pkgazcqqwo67-88-2022hdmyhsvmw poliovirus vaccine, live, oralCorey Kiesha DO Work Phone: [phone] [place], [place] [address]Ofjmvgahpt01-92-6419KLH-Ornifndrlhk influenzae type b conjugate vaccineCorey Kiesha DO Work Phone: [phone] [place], [place] [address]Ntfyttokne52-01-4262lysxvguau B vaccine, pediatric or pediatric/adolescent dosageCorey Kiesha DO Work Phone: [phone] [place], [place] [address]Gzctggqmtn11-41-8478nebvvrdvy poliovirus vaccine, live, oralCorey Kiesha DO Work Phone: [phone] [place], [place] [address]Ticenksllp83-68-8895GFY-Oelaftjpgsz influenzae type b conjugate vaccineCorey Kiesha DO Work Phone: [phone] [address] [place], [place] [address]Oermpzhjaw01-51-3867hhmcbxqoj B vaccine, pediatric or pediatric/adolescent dosageCorey Kiesha DO Work Phone: [phone] [place], [place] [address]Gmenkdlwxg31-36-5639jkfxfxqjg poliovirus vaccine, live, oralCorey Kiesha DO Work Phone: [phone] HealthcareNEGATED: Highlighted row has not occurred!83-88-0625qkcxzxo, mumps and rubella virus vaccineKatcarlos Ryder DO Work Phone: [facility] HealthComment on above:Deferred: Other - Rubella ImmuneNEGATED: Highlighted row has not occurred!98-05-1306lpcozgb toxoid, reduced diphtheria toxoid, and acellular pertussis vaccine, janetKathe Ryder DO Work Phone: [facility] HospitalComment on above:Deferred: No longer needed - Refused Tdap vaccine. Payers DatePayer CategoryPayerPolicy [id number] Managed Care - [facility] [id number] [facility] [id number] [id number] 31-52-0933[facility] [id number]1617.53266-83-1706Trvdauq67-55-3941 [id number] Health Insurance [id number] 20[id number] Health [id number] 2..1.748494.3.579.2.174 [id number] 2..1.674449.3.579.[id number] 2..1.471770.3.579.2.37877-59-1509Cxbkcje27032086 2..1.514821.3.579.2.03093-79-3619Qxmyyjw32485194 2..1.016978.3.579.2.05049-21-8414Blrvnny43992678 2..1.284408.3.579.2.28233-60-4229Ruqhswh85382647 2..1.829587.3.579.2.92314-67-9573Hmpctxn30008283 2..1.900868.3.579.2.81418-66-6088Bxlydif864327573 2.840.1.044036.3.579.2.507679-98-4684Zznqetq641322660 2.0.1.653992.3.579.2.924585-49-7046Qztkldm06748300 2.840.1.576219.3.579.2.401365-45-7383Bsiowuf46927633 2.0.1.879745.3.579.2.408712-28-3527Oiwzmrf62139600 2..1.469554.3.579.2.464230-31-1450Uqexkbp13305139 2.0.1.623809.3.579.2.905301-25-1228Dhgtkeu78268651 2..1.382791.3.579.2.098115-06-0926Jwbkxyh85876901 2..1.946416.3.579.2.596018-70-5419Adyvkgc45253771 2..1.110533.3.579.2.594009-30-4353Gxeezcg24147452 2..1.948518.3.579.2.590745-52-5925Yhuqqiz95954213 2..1.403864.3.579.2.907414-17-1372Tkysffd03687453 2.0.1.280720.3.579.2.417788-13-6139Skzpuyq15678743 2..1.986507.3.579.2.618960-31-7580Rivhvow30289291 2.0.1.425878.3.579.2.978116-33-9168Qknpdgd7241492 2.840.1.811381.3.579.2.478313-63-5893Smngxpz9719527 2..840.1.234234.3.579.2.829561-64-8702Ydaprdt975359050 2..840.1.283061.3.579.2.765684-55-0759Tyaupqb782669873 2..840.1.175383.3.579.2.574624-62-7263Fycdqsd642680658 2.16.840.1.727137.3.579.2.0157Escvskr87182918 2.840.1.939992.3.579.2.531 Social History DateTypeDetailFacilityStart: 01-06-2021 End: 97-11-9788Tyjvpe uses seat beltAlways uses seat beltNOMS HealthcareStart: 12-10-2018 End: 13-94-4981Qmozaap smoking statusNever smoked tobacco (finding)[facility] Centertart: 89-02-9276Lvbwapb smoking statusNeverUniversity Hospitals Lake West Medical Centertart: 01-06-2021 End: 49-33-7392Hey Assigned At [facility] [employer] Other ToMercy Health West HospitalComment on above: denies.Tobacco smoking statusUniversity Hospitals Lake West Medical Centertart: 12-10-2018 End: 98-03-3556Gtpbcma use and exposureSmokeless tobacco non-userAvita Health System Bucyrus Hospitaltart: 04-11-2023 End: 26-72-5279Yxzvtvt intakeCurrent drinker of alcohol (finding)[facility] Hospitaltart: 26-36-4660Tlhybvh Commentmaybe a few drinks a monthBarney Children'S Medical Center Start: 12-74-0235She Assigned At [facility] HospitalNot on [facility] Hospitalumor HealthStart: 01-10-2024 End: 17-53-5373Wpczygo intakeLifetime non-drinker (finding)[facility] HealthWithin the last year, have [...] got money to buy more.Never trueNOMS HealthcareStart: 07-99-5656Ylejomolg65VJQM HealthcareStart: 18-55-6224Rcajyla Commentcaffeine: 1-2 cups per day, coffee and popNOPR HealthcareStart: 54-50-9239Lglsvlu SDOH IPV Gkkc1Ykxwr HealthStart: 18-28-2369Jsatiea SDOH Housing Places Vumwl0Lklym HealthStart: 04-12-2022 [facility] HealthStart: 11-18-2022 End: 17-37-1988Cpgcokdw to SARS-CoV-2 (event)Not sureSuthe surgical hospital [facility] HealthAre you now , , , , never or living with a partner? MarriedNOMS HealthcareDo you feel stress - tense, restless, nervous, or anxious, or unable to sleep at night because yourmind is troubled all the time - these days [OSQ]Only a littleNOPR HealthcareStart: 12-02-2018 End: 11-95-1215PcqNneeps (finding)[facility] Healthcaretart: 60-47-6549Dlt Assigned At [facility] Jacksontart: 08-19-2025 End: 28-42-0301Ywpjdgrue beverage intakeCurrent non-drinker of alcohol (finding) [facility] OhioQualtré Ca[facility] Medical Equipment Procedure CodeEquipment CodeEquipment Original TextEquipment IdentifierDates [id number]: 08-20-2025 End: each by In Vitro route Daily Use to check FSBS four times daily [id number]: 08-20-2025 End: 11-89-7142Huv pen needles to give insulin.[id number]: 09-04-2025 Functional Status ZrylGubdjqdfutKcbxgqUwvkjuxr16-09-1696Cuhbu score [AUDIT-C]0 09/10/2025 10:17 AM EDT AshleyDanae Martinez [facility]09-04-2025Patient Health Questionnaire 2 item (PHQ-2) [Reported][facility] Health SystemVgvnptunpa06-02-9459Ncrge score [AUDIT-C]1 12/29/2024 10:25 PM EST Mychart, GenericNOMS Sjdwxvfrli90-45-1824Jdg often do you have a drink containing alcohol?Monthly or less 12/29/2024 10:25 PM EST Mychart, Generic Monthly or lessNOMS Lnkjgvegld46-78-9278Edtpmitnae status Patient does not drink 12/29/2024 10:25 PM EST Mychart, Generic Patient does not drinkNOLee's Summit HospitalSojgcquhfl21-86-4449Zsi often do you have 6 or more drinks on 1 occasion?Never 12/29/2024 10:25 PM EST Mychart, Generic NeverNOMS [facility] 02-04-6574Dubwiia Health Questionnaire 2 item (PHQ-2) [Reported][facility] 34-68-0334Qvhgjlofrx StatusN/[facility]03-08-2023Functional StatusN/[facility]02-04-2023Functional StatusN/[facility]01-02-2023Functional StatusN/[facility] 07-14-2022N/[facility] Clinical Notes 04-18-2022 to 10-06-2025 Note Date & PehdPfgrLruphtkd95-12-4323 History of Present illness Narrative* Chivo Springer [...] values to us weekly by e-mail to: [email or web address] or by fax to: [phone] Chivo Springer PA-C Maternal- Medicine Office phone: [phone] Chivo Springer PA-C 10/06/25 1606 documented in this encounterThe [facility]11-10-2025 Miscellaneous Notes* Telephone Encounter - Anjana Davalos RN - 10/05/2025 2:39 PM EST Left message for patient to send in blood sugar logs prior to video visit toady in [facility] at 3 PM. Also, Instructed patient to contact [facility] if unable to keep appointment today at [facility], then to call at [phone] option 1 to reschedule. documented in this encounterThe Surgical Hospital at Southwoods11-10-2025 Telephone encounter Note* Telephone Encounter - Anjana Davalos RN - 10/05/2025 2:39 PM EST Left message for patient to send in blood sugar logs prior to video visit toady in [facility] at 3 PM. Also, Instructed patient to contact [facility] if unable to keep appointment today at [facility], then to call at [phone] option 1 to reschedule. [facility]11-05-2025 History of Present illness Narrative* Radha Rahman [...] to check FSBS. Blood Glucose Monitoring Suppl (D-Definiens Glucometer) w/Device kit 1 kit, Does not [...] John San infection GDM (gestational diabetes mellitus) ([facility]) Headache History of menstrual cramps ([facility]) Varicella zoster Visual impairment HISTORY PAST MEDICAL HISTORY SOCIAL HISTORY Past Medical History: Diagnosis Date Amenorrhea d/t oral contraceptive pills Endometriosis John San infection GDM (gestational diabetes mellitus) ([facility]) Headache History of menstrual cramps severe Hypertension ([facility]) x1 Varicella zoster unsure Visual impairment [...] History: Procedure Laterality Date APPENDECTOMY 05/2016 at [facility] 12/2022 retained placenta DISTAL [...] nursing note reviewed. Exam conducted with a box strapper present. Vitals: Estimated body mass index is 30.36 kg/m as calculated from the following: Height as of 07/30/25: 5' 2 . Weight as of this encounter: 166 lb. BP: 140/82 Patient's last menstrual period was 02/21/2025. Assessment/Plan ICD-10-CM 1. Third trimester ([facility]) Z34.93 POCT urinalysis dipstick manually resulted 2. 31 weeks gestation of ([facility]) Z3A.31 3. Pre-eclampsia in third trimester ([facility]) O14.93 Return OB: Patient presents today [...] Nathan Pop DO documented in this encounterFreeman Health SystemYqxrzcsmxx90-75-9822 Miscellaneous Notes* Telephone Encounter - Cha Harris [...] change for this week. documented in this encounterThe Surgical Hospital at [facility]woods11-03-2025 Telephone encounter Note* Telephone Encounter - Cha [...] this new insulin change for this week. [facility]10-27-2025 Miscellaneous Notes* Telephone Encounter - SILKE Baker [...] blood sugar logs weekly. documented in this [facility]10-27-2025 Telephone encounter Note* Telephone Encounter - SILKE [...] to send in blood sugar logs weekly. [facility] Caperfly Yxwabz84-88-8756 History of Present illness Narrative* Chivo Springer PA-C - 09/21/2025 12:28 PM EDT Insulin dose increased due to elevated fastings. Chivo Springer PA-C 09/21/25 1229 documented in this encounterThe [facility] Hospital [facility]10-22-2025 Miscellaneous Notes* Telephone Encounter - Cha Harris [...] blood sugars next week. documented in this encounterThe Surgical Hospital at Southwoods10-22-2025 Telephone encounter Note* Telephone Encounter - Cha [...] send in new blood sugars next week. [facility]10-22-2025 History of Present illness Narrative* Steph Keane [...] John San infection GDM (gestational diabetes mellitus) ([facility]) Headache History of menstrual cramps ([facility]) Varicella zoster Visual impairment HISTORY PAST MEDICAL HISTORY SOCIAL HISTORY Past Medical History: Diagnosis Date Amenorrhea d/t oral contraceptive pills Endometriosis John San infection GDM (gestational diabetes mellitus) ([facility]) Headache History of menstrual cramps severe Hypertension ([facility]) x1 Varicella zoster unsure Visual impairment [...] History: Procedure Laterality Date APPENDECTOMY 05/2016 at [facility] 12/2022 retained placenta DISTAL [...] nursing note reviewed. Exam conducted with a box strapper present. Vitals: Estimated body mass index is 29.78 kg/m as calculated from the following: Height as of 25: 5' 2 . Weight as of this encounter: 162 lb 12.8 oz. BP: 120/80 Patient's last menstrual period was 02/21/2025. Assessment/Plan ICD-10-CM 1. 29 weeks gestation of ([facility]) Z3A.29 POCT urinalysis dipstick manually resulted 2. Third trimester ([facility]) Z34.93 POCT urinalysis dipstick manually resulted 3. Hypertension affecting , antepartum ([facility]) O16.9 4. Gestational diabetes mellitus (GDM), antepartum, gestational diabetes method of control unspecified ([facility]) O24.419 Return OB: Patient presents today [...] Nathan Pop DO documented in this encounterFreeman Health SystemYwyxbxuavn17-39-3230 History of Present illness Narrative* Madhuri Monroy MD - 09/10/2025 11:00 AM EDT Video Visit via Real-time Synchronous Audiovisual Provider Location: [facility] [address] [place] [address], [address] [place] [address] Patient Location: Other [place] [facility] Patient Location Toll Test Worker: None Video Visit Consent Statement: I discussed [...] that there are some limitations compared to jauz-kt-jsfm evaluations. We elected to proceed. REASON FOR [...] and the other consultants, we search on [employer] and all the available care everywhere epic I did review all the imaging studies of the patient available on EMR, ordered by the primary care physician and the other solutions sales consultant HABITS: Patient activity no restrictions, [...] patient is in complete care of her optical engineering technician. Patient does have ultrasound video visit [...] the provider today? none documented in this encounterThe [facility]10-10-2025 History of Present illness Narrative* Radha Magdaleno [...] No Recent ER visits or hospitalizations? 09/03/25 [place] to r/o preeclampsia. Patient states labs WNL [...] and the other consultants, we search on [employer] and all the available care everywhere epic I did review all the imaging studies of the patient available on EMR, ordered by the primary care physician and the other solutions sales consultant HABITS: Patient activity no restrictions, [...] patient is in complete care of her optical engineering technician. Patient does have ultrasound video visit [...] with questions or concerns. documented in this encounterSalem Regional Medical CenterPublicRelay Oqhslg44-09-4463 History of Present illness Narrative* Steph Keane [...] meal for a total of 4times daily. hmpzxmdshi-nkbvgsk-ipjqtbie (Fiorinal) 50-325-40 MG capsule 1 capsule, Oral, [...] San infection Headache History of menstrual cramps ([facility]) Varicella zoster Visual impairment HISTORY PAST MEDICAL HISTORY SOCIAL HISTORY Past Medical History: Diagnosis Date Amenorrhea d/t oral contraceptive pills Endometriosis John San infection Headache History of menstrual cramps severe Hypertension ([facility]) x1 Varicella zoster unsure Visual impairment [...] History: Procedure Laterality Date APPENDECTOMY 05/2016 at [facility] 12/2022 retained placenta DISTAL [...] nursing note reviewed. Exam conducted with a box strapper present. Vitals: Estimated body mass index is 29.41 kg/m as calculated from the following: Height as of 25: 5' 2 . Weight as of this encounter: 160 lb 12.8 oz. BP: 170/90 Patient's last menstrual period was 02/21/2025. ASSESSMENT & PLAN ICD-10-CM 1. 27 weeks gestation of ([facility]) Z3A.27 POCT urinalysis dipstick manually resulted 2. Second trimester ([facility]) Z34.92 Documented by Steph Keane NP on behalf of: Steph Keane NP documented in this encounterFreeman Health SystemGzdiixwrtk26-25-7122 Miscellaneous Notes* Telephone Encounter - Cha Harris [...] to make that appt. documented in this encounterThe [facility]10-07-2025 Telephone encounter Note* Telephone Encounter - Cha [...] Pt asked to be transferred to the [facility] to make that appt. [facility] [employer] Moothg21-83-1066 History of Present illness Narrative* Steph Keane [...] to check FSBS. Blood Glucose Monitoring Suppl ([employer]-Defini[employer] Glucometer) w/Device kit 1 kit, Does not [...] Sna infection Headache History of menstrual cramps ([facility]) Varicella zoster Visual impairment HISTORY PAST [...] History: Procedure Laterality Date APPENDECTOMY 05/2016 at [facility] 12/2022 retained placenta DISTAL [...] nursing note reviewed. Exam conducted with a box strapper present. Vitals: Estimated body mass index is 29.23 kg/m as calculated from the following: Height as of 07/30/25: 5' 2 . Weight as of this encounter: 159 lb 12.8 oz. BP: (!) 158/92 Patient's last menstrual period was 02/21/2025. ASSESSMENT & PLAN ICD-10-CM 1. 26 weeks gestation of ([facility]) Z3A.26 POCT urinalysis dipstick manually resulted 2. Second trimester ([facility]) Z34.92 Return OB: Patient presents today [...] labs and have her evaluated today at [facility]. I discussed with OB today and they are aware that patient is coming to be ev aluated. Orders Placed This Encounter Procedures POCT urinalysis dipstick manually resulted Follow Up: Patient is to return to office in 2 week for routine OB appointment. Documented by Steph Keane NP on behalf of: Steph Keane NP documented in this encounterFreeman Health SystemIdwvjjaxcn51-94-5288 Group counseling note* Group Note - Kerline [...] Face to face time was 80 minutes. Continuent Work Phone: [phone] Miscellaneous Notes* Group Note - Kerline Augustin [...] time was 80 minutes. documented in this encounterSalem Regional Medical CenterShareTracker Forest View HospitalVpitle16-85-9270 History of Present illness Narrative* Steph Keane [...] San infection Headache History of menstrual cramps ([facility]) Varicella zoster Visual impairment HISTORY PAST [...] History: Procedure Laterality Date APPENDECTOMY 05/2016 at [facility] 12/2022 retained placenta DISTAL [...] nursing note reviewed. Exam conducted with a box strapper present. Vitals: Estimated body mass index is 27.82 kg/m as calculated from the following: Height as of 07/30/25: 5' 2 . Weight as of this encounter: 152 lb 1.9 oz. BP: 138/82 Patient's last menstrual period was 02/21/2025. ASSESSMENT & PLAN ICD-10-CM 1. 24 weeks gestation of ([facility]) Z3A.24 POCT urinalysis dipstick manually resulted 2. Second trimester ([facility]) Z34.92 POCT urinalysis dipstick manually resulted [...] Nathan Pop DO documented in this encounterFreeman Health SystemVcntrpfrkl54-82-8534 History of Present illness Narrative* Eliceo Beltran [...] infection Headache History of menstrual cramps Hypertension ([facility]) Varicella zoster Visual impairment Objective ?Quick [...] Lipid panel; Future documented in this encounterFreeman Health SystemHwtjvzwxyr64-42-6132 History of Present illness Narrative* Christine Ravi [...] History: Procedure Laterality Date APPENDECTOMY 05/2016 at [facility] 12/2022 retained placenta DISTAL [...] nursing note reviewed. Exam conducted with a box strapper present. Vitals: Estimated body mass index is 26.48 kg/m as calculated from the following: Height as of 12/30/24: 5' 2 . Weight as of this encounter: 144 lb 12.8 oz. BP: 120/80 Patient's last menstrual period was 02/21/2025. ASSESSMENT & PLAN ICD-10-CM 1. 20 weeks gestation of ([facility]) Z3A.20 POCT urinalysis dipstick manually resulted 2. Second trimester ([facility]) Z34.92 POCT urinalysis dipstick manually resulted [...] Nathan Pop DO documented in this encounterFreeman Health SystemVwlpqaaxte16-17-7920 History of Present illness Narrative* Steph Keane [...] San infection Headache History of menstrual cramps ([facility]) Varicella zoster Visual impairment HISTORY PAST [...] History: Procedure Laterality Date APPENDECTOMY 05/2016 at [facility] 12/2022 retained placenta DISTAL [...] nursing note reviewed. Exam conducted with a box strapper present. Vitals: Estimated body mass index is 26.73 kg/m as calculated from the following: Height as of 12/30/24: 5' 2 . Weight as of this encounter: 146 lb 1.9 oz. BP: 118/74 Patient's last menstrual period was 02/21/2025. ASSESSMENT & PLAN (Z34.92) Second trimester ([facility]) Plan: POCT urinalysis dipstick manually resulted, Alpha fetoprotein, maternal, Alpha fetoprotein, maternal (Z3A.17) 17 weeks gestation of ([facility]) Plan: POCT urinalysis dipstick manually resulted, Alpha fetoprotein, maternal, Alpha fetoprotein, maternal (Z36.89) Screening, , for anatomic survey ([facility]) Plan: US OB 14+ weeks anatomy [...] Nathan Pop DO documented in this encounterFreeman Health SystemBwakudgsgs66-78-4177 History of Present illness Narrative* Steph Keane NP - 05/25/2025 2:40 PM EDT Reason for Appointment: Patient ID: Jhui Gama is a 30 [...] San infection Headache History of menstrual cramps ([facility]) Varicella zoster Visual impairment HISTORY PAST [...] History: Procedure Laterality Date APPENDECTOMY 05/2016 at [facility] 12/2022 retained placenta DISTAL [...] nursing note reviewed. Exam conducted with a box strapper present. Vitals: Estimated body mass index is 25.24 kg/m as calculated from the following: Height as of 12/30/24: 5' 2 . Weight as of this encounter: 138 lb. BP: 122/80 Patient's last menstrual period was 02/21/2025. ASSESSMENT & PLAN ICD-10-CM 1. Second trimester ([facility]) Z34.92 POCT urinalysis dipstick manually resulted 2. 13 weeks gestation of ([facility]) Z3A.13 Return OB: Patient presents today [...] Nathan Pop DO documented in this encounterFreeman Health SystemHgahkiyeoz55-48-9113 History of Present illness Narrative* Hina Go [...] Dysmenorrhea 03/29/2023 Endometriosis 03/29/2023 Gastroparesis 03/29/2023 Hypertension ([facility]) 03/29/2023 Intractable migraine without aura and with status migrainosus ([facility]) 03/29/2023 Migraines ([facility]) 03/29/2023 Chronic pelvic pain in female 03/29/2023 Pain in female genitalia on intercourse 03/29/2023 Pain on swallowing 03/29/2023 Panic disorder ([facility]) 03/29/2023 Patellofemoral disorders, left knee 03/29/2023 Patellofemoral disorders, right knee 03/29/2023 Posterior calcaneal exostosis 03/29/2023 Scapular dyskinesis 03/29/2023 Scoliosis 03/29/2023 Seasonal allergic rhinitis due to pollen 03/29/2023 Tachycardia, paroxysmal ([facility]) 03/29/2023 Tension headache 03/29/2023 Vitamin B12 [...] History: Procedure Laterality Date APPENDECTOMY 05/2016 at [facility] 12/2022 retained placenta DISTAL [...] or undercooked meat, and stay away from [facility]. Patient has also been advised to [...] Hina Go LPN documented in this encounterFreeman Health SystemVldtqdeccs69-04-5443 History of Present illness Narrative* Candis Yanes, 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 - 01/19/2025 2:50 PM EST Reason for Appointment: Patient ID: Juhi Gama is a 29 y.o. female who presents for Painful Mettler Patient presents today for Consult appointment. MEDICATIONS Current Outpatient Medications Medication Instructions secjrjyzke-zsyinuhmvmakj-xtttcbtq 50-325-40 MG tablet 1 tablet, Oral, Every 6 hours PRN meloxicam (MOBIC) 15 mg, Oral, Daily metoprolol succinate XL (Toprol-XL) 25 MG 24 hr tablet Take 1 tablet by mouth daily ALLERGIES No Known Allergies PROBLEMS Active Ambulatory Problems Diagnosis Date Noted Acquired equinus deformity of foot 03/29/2023 Displacement of cervical intervertebral disc without myelopathy 03/29/2023 Dysmenorrhea 03/29/2023 Endometriosis 03/29/2023 Gastroparesis 03/29/2023 Hypertension ([facility]) 03/29/2023 Intractable migraine without aura and with status migrainosus ([facility]) 03/29/2023 Migraines ([facility]) 03/29/2023 Chronic pelvic pain in female 03/29/2023 Pain in female genitalia on intercourse 03/29/2023 Pain on swallowing 03/29/2023 Panic disorder ([facility]) 03/29/2023 Patellofemoral disorders, left knee 03/29/2023 [...] History: Procedure Laterality Date APPENDECTOMY 05/2016 at [facility] 12/2022 retained placenta DISTAL [...] nursing note reviewed. Exam conducted with a box strapper present. Vitals: Estimated body mass index is [...] patient and patient given direct extension to Community Associate for any questions/concerns pertaining to fertility. Documented by Candis Yanes LPN on behalf of: Nathan Pop DO documented in this encounterFreeman Health [id number] History of Present illness Narrative* Eliceo Beltran [...] History: Procedure Laterality Date APPENDECTOMY 05/2016 at [facility] 12/2022 retained placenta DISTAL [...] min Stress: No Stress Concern Present (12/29/2024) [place] of Occupational Health - Occupational Stress Questionnaire Feeling of Stress : Only a little Social Connections: Unknown (12/29/2024) Social Connection and Isolation Panel [NHANES] Frequency of Communication with Friends and Family: More than three times a week Frequency of Social Gatherings with Friends and Family: Once a week Attends Anabaptist Services: Patient declined Active Member of Clubs [...] with the patient today. Current Outpatient Medications: kxktzkftkd-ctfnreevkkeoq-pwkmopkt 50-325-40 MG tablet, Take 1 tablet by mouth every 6 (six) hours if needed for headaches, Disp: 20 tablet, Rfl: 0 desogestrel-ethinyl estradiol (Apri) 0.15-30 MG-MCG tablet, Take 1 tablet by mouth Daily, Disp: 21 tablet, Rfl: 12 metoprolol succinate XL (Toprol-XL) 25 MG 24 hr tablet, Take 1 tablet by mouth daily, Disp: 90 tablet, Rfl: 1 documented in this encounterFreeman Health [id number] History of Present illness Narrative* Virgen Steen LPN - 08/18/2024 11:00 AM EDT Reason for Appointment: Patient ID: Juhi Cope is a 29 y.o. female who presents for Well Women Visit Patient presents today for Annual Exam. MEDICATIONS Current Outpatient Medications Medication Instructions hyrznyvefk-smbnvzwmvibyl-ijnyuhbb 50-325-40 MG tablet 1 tablet, Oral, Every [...] 03/29/2023 Pain on swallowing 03/29/2023 Panic disorder ([facility]) 03/29/2023 Patellofemoral disorders, left knee 03/29/2023 [...] Headache History of menstrual cramps severe Hypertension ([facility]) x1 Varicella zoster unsure Visual impairment [...] History: Procedure Laterality Date APPENDECTOMY 05/2016 at [facility] 12/2022 retained placenta DISTAL [...] nursing note reviewed. Exam conducted with a box strapper present. Vitals: Estimated body mass index is [...] Zenobia Gutierrez PA-C documented in this encounterFreeman Health [id number] History of Present illness Narrative* Christine Ravi LPN - 07/22/2024 9:50 AM EDT Reason for Appointment: Patient ID: Juhi Cope is a 29 y.o. female who presents for Dysmenorrhea Patient presents today for Acute Visit. MEDICATIONS Current Outpatient Medications Medication Instructions yxjmvnjkxb-uqyxqhdgxyxdz-evpxsrzq 50-325-40 MG tablet 1 tablet, Oral, Every [...] History: Procedure Laterality Date APPENDECTOMY 05/2016 at [facility] 12/2022 retained placenta DISTAL [...] nursing note reviewed. Exam conducted with a box strapper present. Vitals: Estimated body mass index is [...] Nathan Pop DO documented in this encounterFreeman Health [id number] Telephone encounter Note* Telephone Encounter - Candis Garces - 04/29/2024 8:23 AM EDT Received message from admin Anna Webb to cancel surgery and all appts as pt had services elsewhere [facility]06-04-2024 Miscellaneous Notes* Telephone Encounter - Candis Garces - 04/29/2024 8:23 AM EDT Received message from admin Anna Webb to cancel surgery and all appts as pt had services elsewhere documented in this encounterBarney Children'S [facility] Center05-31-2024 Telephone encounter Note * Telephone Encounter - Anna De Leon - 04/25/2024 1:10 PM EDT Pt got in sooner for surgery with her local sound effects supervisor. Please cancel surgery and all pre and post op appts. [facility]05-31-2024 Miscellaneous Notes* Telephone Encounter - Anna De Leon - 04/25/2024 1:10 PM EDT Pt got in sooner for surgery with her local sound effects supervisor. Please cancel surgery and all pre and post op appts. documented in this encounterBarney Children'S [facility] Center02-15-2024 History of Present illness Narrative* [...] History: Procedure Laterality Date APPENDECTOMY 05/2016 at [facility] 12/2022 retained placenta DISTAL [...] nursing note reviewed. Exam conducted with a box strapper present. Vitals: Estimated body mass index is [...] of: Nathan Kiesha, DO documented in this encounterFreeman Health [id number] Miscellaneous Notes* Telephone Encounter - Pippa Simon [...] mg tablet Class: Normal Route: ORAL Order: [id number] E-Prescribing Status: Receipt confirmed by pharmacy (05/17/2023 [...] that may recur and often requires a custodial treatment plan. Once endometriosis is identified, there [...] Center 05/20/2024 10:00 AM [facility]24 10:30 AM Charlene Rodriguez DO [facility] Appointment scheduled: As listed above Action taken: Refill request routed to clinician Pippa Simon RN January 03, 2024 4:29 PM * Telephone Encounter - Alena Tracy - 01/02/2024 3:52 PM EST Patient: Juhi Cope : 1995 Provider: Charlene Rodriguez DO Caller Phone #: [phone] (home) [phone] (cell) Reason for call: b/c refill Message routed to nurse triage Date of next visit: MEGAN: 12/10/2023 documented in this encounterBarney Children'S Medical Center01-15-2024 NoteHNO ID: [id number] Author: CHARLENE RODRIGUZE DO Service: ? 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 Where to find more information [employer] [employer]: www.heart.org Contact a health care [...] provider. Document Revised: 07/27/2022 Document Reviewed: 07/27/2022 Admazely Patient Education 2022 Ayla. 09/12/2023 18:18:13 Hypertension, Adult, Gqtr-of-Yioa Hypertension, Adult Hypertension is another name for [...] doctor. Keep all follow-up visits. Medicines Take gtkx-jpy-yffytra and prescription medicines only as told by [...] provider. Document Revised: 08/31/2022 Document Reviewed: 08/31/2022 Admazely Patient Education 2022 Ayla. 09/12/2023 18:18:13 General Headache Without Cause, Hoep-op-Pzwr General Headache Without Cause A headache is pain or discomfort you feel around the head or neck area. There are many causes and types of headaches. In some cases, the cause may not be found. Follow these instructions at home: Watch your condition for any changes. Let your doctor know about them. Take these steps to help with your condition: Managing pain Take qfyf-ons-nbghkmh and prescription medicines only as told by [...] provider. Document Revised: 04/12/2022 Document Reviewed: 04/12/2022 Admazely Patient Education 2022 Ayla. Follow Up Care 09/12/2023 17:21:57 With:DENNY RODRÍGUEZ Address: [address] [place] [address] Business (1) When:09/15/2023 18:03:37 Comments:Follow-up with your primary care provider in 3 to 5 days. If symptoms worsen, do not improve, or new symptoms arise please report back to emergency department for further evaluation. [facility]10-18-2023 Evaluation + Plan noteExtracted [...] date 09/12/23 18:02:00 EDT, 09/12/23 18:02:00 EDT [facility]10-16-2023 Instructions* Patient Instructions* Jihan Downs APRN.CNP - 09/10/2023 9:52 AM EDT Plan: Trial baclofen suppositories - can switch to pill vaginally if suppositories are not affordable Consider Pelvic floor physical therapy - can find local provider [email or web address] Consider going back to see Dr Kuldip Downs APRN.CNP documented in this encounterBarney Children'S Medical Center10-05-2023 NoteHNO ID: [id number] Author: Charlene Rodriguez DO Service: ? Author Type: Physician Type: Progress Notes Filed: 08/30/2023 11:15 AM Note Text: Tramadol rx sent to pharmacy.[facility]10-05-2023 History of Present illness Narrative* Charlene Rodriguez DO - 08/30/2023 11:13 AM EDT Tramadol rx sent to pharmacy. documented in this encounterBarney Children'S Medical Center10-05-2023 Miscellaneous Notes* Telephone Encounter - Chelsie Dueñas RN - 08/30/2023 10:50 AM EDT Last office visit: 08/24/2023 Assessment and Plan No diagnosis found. Trial baclofen suppositories Will send list of PTs Consider going back to Kuldip SIGNATURE: Jihan Downs APRN.NUTRITION AIDES TEACHER Office visit with Dr. Rodriguez 07/16/2023 [...] plan. Charlene Rodriguez DO documented in this encounterBarney Children'S Medical Center09-29-2023 NoteHNO ID: [id number] Author: Jihan Downs APRN.ANA LAURA Service: ? Author Type: Nurse Practitioner Type: Progress Notes Filed: 09/10/2023 9:53 AM Note Text: [facility] [place] Department of Benign Gynecology [facility] PATIENT NAME: Juhi Cope DATE: 08/24/2023 Patient Name and verified: Yes Patient Location: [place] This Virtual Visit was completed using My Chart Zoom platform. I have communicated my name and active licensure. The patient's identity and physical location were verified at the time of this visit. Either the patient or their legal public utilities sales representative has been informed of the [...] appointment yet. 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 [facility] [place] Department of Benign Gynecology [facility] PATIENT NAME: Juhi Cope DATE: 08/24/2023 Patient Name and verified: Yes Patient Location: [place] This Virtual Visit was completed using My Chart Zoom platform. I have communicated my name and active licensure. The patient's identity and physical location wereverified at the time of this visit. Either the patient or their legal public utilities sales representative has been informed of the [...] appointment yet. 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 Please call [phone] Message routed to nurse triage Date of next visit: documented in this encounterBarney Children'S Medical Center09-07-2023 Miscellaneous Notes* Telephone Encounter - Candis Suárez RN - 08/02/2023 11:29 AM EDT PA for orilissa completed via Cover [employer]. Juhi Cope (Morales: [id number]) - [id number] Orilissa 150MG tablets Status: Sent To Plan [...] too. Please advise. Thanks. documented in this encounterBarney Children'S Medical Center08-21-2023 NoteHNO ID: [id number] Author: Charlene Rodriguez DO Service: ? 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 Charlene Rodriguez DO Tt: 20 minutesCincinnati [facility] Center06-22-2023 History of Present illness Narrative* Charlene Rodriguez DO - 05/17/2023 1:05 PM EDT Images from the original note were not included. 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 Biggest complaint is cramping. Has had 3 periods of bleeding recently - 04/22/2023 LMP, last a few days, 05/04-05/10 bleeding again 05/11/2023 started again today. Takes aygestin 5mg daily. She did not black pickler flexeril. Encourage to black pickler the flexeril as this will help with the cramping. Reviewed red flag bleeding symptoms that require trip to ER (soaking greater than one overnight padper hour, chest pain, shortness of breath, fatigue, palpitations).. Advised keep appt. Gives verbal understanding. Appointments for Next 60 Days Date Time Provider Location Dept Phone 05/17/2023 1:00 PM CHARLENE RODRIGUEZ [facility] [phone] Candis Suárez RN * Telephone Encounter - Tawana Nair [facility] - 05/11/2023 1:19 PM EDT Reason for call: other - Vaginal bleeding Provider name: Dr Rodriguez Additional comments: patient having more vaginal bleeding and concerned she is getting worse. Recommendation: routed to nurse triage pool documented in this encounterBarney Children'S Medical Center06-06-2023 Instructions* Patient Instructions* Jihan Downs APRN.ANA LAURA - 05/01/2023 11:47 AM EDT Plan Pelvic floor physical therapy - or can go locally [email or web address] Trial flexeril at bedtime Can consider Baclofen [...] pelvic pain society ([email or web address]) documented in this encounterBarney Children'S Medical Center06-06-2023 History of Present illness Narrative* Jihan Downs APRN.ANA LAURA - 05/01/2023 10:30 AM EDT Juhi Cope is a 28 year old female who presents for problem visit for pain HPI: Pain is week before period and week of period. Worse on her period for every day she's bleeding Urinary - No symptoms GI - Always constipated. 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 Author Type: Nurse Practitioner Type: Progress Notes Filed: 05/09/2023 11:46 AM Note Text: Juhi Cope is a 28 year old female who presents for problem visit for pain HPI: Pain is week before period and week of period. Worse on her period for every day she's bleeding Urinary - No symptoms GI - Always constipated. 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 Lucila Foss RN documented in this encounterBarney Children'S Medical Center03-08-2023 Hospital Discharge instructions Patient Education [...] told by your health care provider. Take gelf-mff-cgtmufh and prescription medicines only as told by [...] 01/03/2007 Document Revised: 10/25/2018 Document Reviewed: 01/25/2018 Admazely Patient Education 2020 Ayla. Follow Up Care 01/31/2023 13:43:01 With:Denny Meza Address:Unknown When:02/03/2023 18:59:31 Comments:Follow-up for evaluation of hypertension in context of known preeclampsia in the period With:DENNY RODRÍGUEZ [facility] [place] [place] [address]- Business (1) When:Within 3 Day(s) [facility]03-08-2023 Evaluation + Plan noteExtracted from: Title:ED NoteAuthor:Mayur Mabry PA-C CDate:01/31/23 Flank pain (R10.9: Unspecifi ed abdominal pain) Headache (R51.9: Headache, unspecified) Orders: CTA Chest Hepatic Function Panel [facility]02-04-2023 Hospital Discharge instructions Patient Education 12/30/2022 13:59:51 MAINTENANCE CRAFTSMAN - Post D&C, Hysteroscopy, LEEP or Essure/Laparoscopy [...] Instructions - FT (Custom) (Custom) 12/30/2022 13:55:16 MAINTENANCE CRAFTSMAN - Post D&C, Hysteroscopy, LEEP or Essure/Laparoscopy [...] With:Denny Meza Address: [address], [place] [address] [place] [address]- Business (1) When: Unknown Comments:follow up in 1-2 weeks With:DENNY RODRÍGUEZ Address: [address] [place] [address]- Business (1) When:01/02/2023 09:21:18 [facility]02-04-2023 Evaluation + Plan noteExtracted [...] from:Title:ANES Pre-operative NoteAuthor:Kenneth Agustin MDDate: 12/30/22 Plan [place] [employer] Anesthesiologists (ASA) physical status classification: [...] With Cult Reflex US Pelvis Non-OB Complete [facility]01-10-2023 History of Present illness Narrative* Toyr Pimentel - 12/05/2022 1:35 PM EST Vital [...] Ross MD - 12/05/2022 3:19 PM EST [facility]: This patient was seen in the [facility] by the resident. I reviewed and agree with the care provided by the resident during or immediately following the visit including the patient's medical history, the resident's finding in the physical exam, patient's diagnosis and treatment plan. documented in this [facility]01-07-2023 NoteDepartment of Obstetrics and Gynecology Delivery Discharge Summary Admission on 11/28/2022 12:24 AM Hospital course: Juhi Cope at 35w1d admitted as a transfer from [facility] for [facility]. She was started on Magnesium [...] Information for the patient's : Francie Cope [[id number]] female 2425 g (5 lb 5.5 oz) Apgars: Information for the patient's : Francie Cope [[id number]] : Infant: Girl Blood Type/Rh: O Antibody [...] Your Medications These medications were sent to [facility] [address] [place], [place] [id number] Hours: Sunday to Sunday 10 am to 6 pm docusate sodium 100 MG capsule ibuprofen 600 MG tablet NIFEdipine XL 30 MG 24 hr tablet Activity: Activity as tolerated Diet: Regular diet Follow-up Appointments: - visit - Blood pressure check If a patient meets criteria for hypertension, make sure the following are done prior to discharge: [] Order a blood pressure kit through [facility] (or the patient's own pharmacy on the weekend) [] Order the blood pressure log through [facility] [x] Place an office visit or telephone [...] notify her physician if any of these occur.[facility]01-07-2023 History of Present illness Narrative* Anna [...] with more than 50% of the total pbkh-jq-naci time of the visit in counseling/coordination of [...] be monitored and followed by the diet fire control technician. CRISS Oshea * Alejandra Arcos RN [...] Note Date: 11/28/2022 Time: 2:14 AM Subjective: Jhui Cope is a 27 y.o. female at [...] and reassuring. CCM. Cx:/-3 FHT: Cat 1 [place]:q3-4 min A/P: 1. IOL-PreEwSF. FHT 130 baseline, with moderate variability, Accelerations present Yes, and rare late deceleration . Cervical exam unchanged. Cytotec x4 placed at this time. Patient intermittently feeling contractions. BP mild range. Cx: 1-/-3 FHP: defer FHT: Cat I [place]: a3-4min A/P: 1. IOL-PreEwSF: FHT Category I, [...] Cx: unchanged FHP: defer FHT: Cat I [place]: q4min A/P: 1. IOL-PreEwSF: FHT Category I, [...] 11/29/2022 6:17 AM Cx:1-2/60/-3 FHT: Cat I [place]:q4-5mins A/P: 1. IOL-PreEwSF: Cat I FHT with [...] per protocol. CCM. Cx:defer FHT: Cat I [place]:q4-6mins A/P: 1. IOL-PreEwSF: Cat I FHT with baseline 120, moderate variability, spontaneous accelerations, and no decelerations. BP normotensive to mild range since last note time. Pitocin @ 2 cc/hr, continue to titrate per protocol. Magnesium sulfate running for seizure prophylaxis, UOP 400 ml over past 4hours. CCM. Cx:defer FHT: Cat I [place]:q4-5mins A/P: 1. IOL-PreEwSF: Cat I FHT with baseline 135, moderate variability, spontaneous accelerations, and no decelerations. BP normotensive to mild range since last note time. Pitocin @ 6 cc/hr, continue to titrate per protocol. Magnesium sulfate running for seizure prophylaxis, UOP 600 ml over past 4hours. Will plan for AROM soon. CCM. Cx:defer FHT: Cat I [place]:irritability A/P: 1. IOL-PreEwSF: Pit @ 8 mu/min. Patient resting comfortably and only irritability tracing on toco. BP most recently mild range. On magnesium sulfate for seizure prophylaxis. UOP adequate. Continue magnesium and continue to titrate pitocin per protocol. Plan for AROM once patient rudi more regularly. Electronically signed by Cortney Velasquez DO 11/29/2022 4:21 PM Cx:470/-3 FHT: Cat 1 [place]:Not tracing A/P: 1. IOL-PreEwSF. FHT 135 baseline, with moderate variability, Accelerations present Yes, and nodecelerations seen . AROM at this time for moderate amount blood tinged fluid. Pitocin at 8cc/hr. Maternal BP mild range. On Magnesium for Seizure prophylaxis. Patient with adequate urinary output. CCM. Cx: defer FHP: defer FHT: Cat II [place]: not tracing well A/P: 1. IOL-PreEwSF: FHT [...] per RN FHP: defer FHT: Cat II [place]: q4min A/P: 1. IOL-PreEwSF: FHT Category II [...] delivery note for details documented in this [facility]01-07-2023 Hospital course Narrative* César Tran DO - 12/02/2022 12:32 PM EST Images from the original note were not included. Department of Obstetrics and Gynecology Delivery Discharge Summary Admission on 11/28/2022 12:24 AM Hospital course: Juhi Cope at 35w1d [facility] She was startedon Magnesium there and [...] Information for the patient's : Francie Cope [[id number]] female 2425 g (5 lb 5.5 oz) Apgars: Information for the patient's : Francie Cope [[id number]] : Infant: Girl Blood Type/Rh: O Antibody [...] Your Medications These medications were sent to [facility] [address] [place] [address] Hours: Sunday to Sunday 10 am to 6 pm docusate sodium 100 MG capsule ibuprofen 600 MG tablet NIFEdipine XL 30 MG 24 hr tablet Activity: Activity as tolerated Diet: Regular diet Follow-up Appointments: - visit - Blood pressure check If a patient meets criteria for hypertension, make sure the following are done prior to discharge: [] Order a blood pressure kit through [facility] (or the patient's own pharmacy on the weekend) [] Order the blood pressure log through [facility] [x] Place an office visit or telephone [...] any of these occur. documented in this [facility]01-06-2023 Note* Care Coordination - Christine Michelle [...] home. Denies any concerns at this time. [id number] Note* Care Coordination - Christine Michelle RN [...] home. Denies any concerns at this time. [facility] [id number] Miscellaneous Notes* Care Coordination - Christine Michelle [...] indicated for this pt. Due to: [facility] Hospital breast pump, supplies kit, swabs [...] Told patient to check with LC in [facility] for smaller flange sizes * L&D Delivery Note - Irina Kramer DO - 11/30/2022 4:04 AM EST Images from the original note were not included. Vaginal Delivery Note Department of Obstetrics and Gynecology Patient: Juhi Cope : 1995 Date of delivery: 11/30/2022 Pre-operative Diagnosis: Juhi Mojica0 at 35w1d 1. <37 weeks 2. 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 Bowden; Dr. Kramer Information: Information for the patient's : Francie Cope [[id number]] Information for the patient's : Francie Cope [[id number]] Description: normal Meconium Noted: No Anesthesia: epidural [...] change. Clotilde Mg RN documented in this [facility]01-06-2023 Obstetrics Note* Note - Ligia Bridges RN - 12/01/2022 9:00 AM EST 22.5mm flanges given to patient. Encouraged her to call for observation of pump session and smallerflanges. Martha in NICU to assist with personal pump. [facility] [id number] Hospital Discharge instructions* Discharge Instructions* Carol Bowden [...] as 8 weeks after delivery. Bleeding may black pickler and then decrease again around 7-10 [...] avoid constipation you may take a mild xqff-dot-uzjctaq stool softener (such as colace) as recommended [...] positive or a Person Under Investigation (PUI) Jiqlrw-ye-jjeha transmission of COVID-19 during is unlikely, but after a baby is susceptible to epndnh-bm-jpmism spread. After your baby is born, your [...] clean your hands with an alcohol-based hand strap making machine operator that contains at least 60% alcohol. Clean your hands often Wash your hands often with soap and water for at least 20 seconds, especially after blowing your nose, coughing, or sneezing; going to the bathroom; and before eating or preparing food. If soap and water are not readily available, use an alcohol-based hand strap making machine operator with at least 60% alcohol, covering [...] healthcare provider to call the local or [facility] health department. Persons who are [...] isolation precautions should be made on a xjuq-qf-puza basis, in consultation with healthcare providers and [...] respiratory tract signs and symptoms. Ways to [place] with Anxiety & Stress It is normal [...] an illness that was first found in [facility], in October 2019. It has since [...] seen in people before. This virus spreads jtogcr-qt-sygfqg through droplets from coughing and sneezing. It [...] water aren't available, use an alcohol-based hand strap making machine operator. Call 911 anytime you think you [...] of: February 25, 2020 Content Version: 12.4 [employer]. Care instructions adapted under license by your [...] handles, desks, toilets, faucets, sinks) with household centrifugal extractor operator and EPA-registered disinfectants that are appropriate [...] appropriate. These supplies include tissues, paper towels, centrifugal extractor operator and EPA-registered disinfectants (see list link at [facility] website). If a separate bathroom is not [...] be used for other purposes. Consult the small animal veterinarian's instructions for cleaning and disinfection products used. [...] used if appropriate for the surface. Follow small animal veterinarian's instructions for application and proper ventilation. Check [...] for harder to kill viruses. Follow the small animal veterinarian's instructions for all cleaning and disinfection products (e.g., concentration, application method and contact time, etc.). Soft (porous) surfaces such as carpeted floor, rugs, and drapes Remove visible contamination if present and clean with appropriate centrifugal extractor operator indicated for use on these surfaces. After cleaning: Launder items as appropriate in accordance with the small animal veterinarian's instructions. If possible, launder items using the [...] items as appropriate in accordance with the small animal veterinarian's instructions. If possible, launder items using the warmest appropriate water setting for the items and dry items completely. Dirty laundry from an ill person can be washed with other people's items. Clean and disinfect clothes hampers according to guidance above for surfaces. If possible, considerplacing a bag machine operator helper that is either disposable (can be thrown away) or can be laundered. [facility] has a list of EPA approved cleaning products on their website - https://www.cdc.gov/coronavirus/ 2019-ncov/community/home/cleaning-disinfection.html https://www.[employer]/Iwpbd-Kjwvvaytkuc-Edowqjaf-Products-List.pdf flaregames with delivery and black pickler services: [employer]: Free black pickler at locations Delivery is $12.95 a month Website - [employer]: Organ Assembler $2.95 (1st order is free) Delivery is $14.95 Website - [employer] [place]: supervisor prep is free Delivery is $5.95 Website [employer]: supervisor prep is $4.95 Delivery is $9.95 Website [employer]: supervisor prep is $4.95 Delivery is $9.95 Website [employer]: Can be ordered for delivery and black pickler with [employer] Website - www.[employer]: Free deliver for first 3 orders of $35 or more Website - [employer] Will deliver from [employer], [employer], [employer], and [employer]. Annual membership is $99 Monthly membership is $14 * Attachments The following attachments cannot be sent through Care Everywhere. * Preeclampsia Discharge Instructions (Israeli) documented in this [facility]01-05-2023 Obstetrics Note* Note - Sheila Harrell RN - 11/30/2022 10:37 AM EST Swabs given to patient and educated how to use and to bring to [facility] [id number] Obstetrics Note* Note - Sheila Harrell RN - 11/30/2022 10:30 AM EST Breast pump use indicated for this pt. Due to: [facility] Hospital breast pump, supplies kit, swabs [...] pump Told patient to check with in [facility] for smaller flange sizes [facility] [id number] NotePatient: Juhi Cope Procedure Summary Date: 11/29/22 [...] discharged once all PACU criteria has been met.[facility]01-05-[facility]23 NotePatient: Juhi Cope Procedure Summary Date: [...] Allowed opportunity for questions and acknowledgement of understanding.[facility]01-05-2023 Labor and delivery summary note* L&D Delivery Note - Irina Kramer DO - 11/30/2022 4:04 AM EST Images from the original note were not included. Vaginal Delivery Note Department of Obstetrics and Gynecology Patient: Juhi Cope : 1995 Date of delivery: 11/30/2022 Pre-operative Diagnosis: Juhi Sidhu at 35w1d 1. <37 weeks 2. 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 Bowden; Dr. Kramer Information: Information for the patient's : Francie Cope [[id number]] Information for the patient's : Francie Cope [[id number]] Description: normal Meconium Noted: No Anesthesia: epidural [...] surgery as described in the resident note. [facility] [id number] NoteEpidural Block Time Out: 11/29/2022 6:17 PM Patient location during procedure: OB Start time: 11/29/2022 6:18 PM End time: 11/29/2022 6:45 PM Reason for block: labor analgesia Staffing Performed: BONE CRUSHER Resident/BONE CRUSHER: Jimmie Kaur APRN - BONE CRUSHER Preanesthetic Checklist Completed: patient identified, IV checked, [...] patient tolerated procedure well with no immediate complicationsMackinac [facility]01-04-2023 Plan of care note* Care Plan - Clotilde Mg RN - 11/29/2022 7:45 AM EST The patient will continue to make cervical change. Clotilde Mg RN [facility] [id number] NotePatient: Juhi Cope Procedure Information Date: 11/28/22 [...] products. patient is not NPO Additional Equipment RequestsMackinac Straits Hospital01-03-2023 NoteLabor Progress Note Date: 11/28/2022 Time: [...] and reassuring. CCM. Cx:-3 FHT: Cat 1 [place]:q3-4 min A/P: 1. IOL-PreEwSF. FHT 130 baseline, with moderate variability, Accelerations present Yes, and rare late deceleration . Cervical exam unchanged. Cytotec x4 placed at this time. Patient intermittently feeling contractions. BP mild range. Cx: 1--3 FHP: defer FHT: Cat I [place]: a3-4min A/P: 1. IOL-PreEwSF: FHT Category I, [...] Cx: unchanged FHP: defer FHT: Cat I [place]: q4min A/P: 1. IOL-PreEwSF: FHT Category I, [...] 11/29/2022 6:17 AM Cx:1-2/60/-3 FHT: Cat I [place]:q4-5mins A/P: 1. IOL-PreEwSF: Cat I FHT with [...] per protocol. CCM. Cx:defer FHT: Cat I [place]:q4-6mins A/P: 1. IOL-PreEwSF: Cat I FHT with baseline 120, moderate variability, spontaneous accelerations, and no decelerations. BP normotensive to mild range since last note time. Pitocin @ 2 cc/hr, continue to titrate per protocol. Magnesium sulfate running for seizure prophylaxis, UOP 400 ml over past 4 hours. CCM. Cx:defer FHT: Cat I [place]:q4-5mins A/P: 1. IOL-PreEwSF: Cat I FHT with baseline 135, moderate variability, spontaneous accelerations, and no decelerations. BP normotensive to mild range since last note time. Pitocin @ 6 cc/hr, continue to titrate per protocol. Magnesium sulfate running for seizure prophylaxis, UOP 600 ml over past 4 hours. Will plan for AROM soon. CCM. Cx:defer FHT: Cat I [place]:irritability A/P: 1. IOL-PreEwSF: Pit @ 8 mu/min. Patient resting comfortably and only irritability tracing on toco. BP most recently mild range. On magnesium sulfate for seizure prophylaxis. UOP adequate. Continue magnesium and continue to titrate pitocin per protocol. Plan for AROM once patient rudi more regularly. Electronically signed by Cortney Velasquez DO 11/29/2022 4:21 PM Cx:/-3 FHT: Cat 1 [place]:Not tracing A/P: 1. IOL-PreEwSF. FHT 135 baseline, with moderate variability, Accelerations present Yes, and no decelerations seen . AROM at this time for moderate amount blood tinged fluid. Pitocin at 8cc/hr. Maternal BP mild range. On Magnesium for Seizure prophylaxis. Patient with adequate urinary output. CCM. Cx: defer FHP: defer FHT: Cat II [place]: not tracing well A/P: 1. IOL-PreEwSF: FHT Category II for brief period of lates vs early deceleration (more content not included)...[facility]01-03-2023 NoteObstetrical History and Physical CHIEF COMPLAINT: [...] 34w6d Is this patient being delivered between 00v8p-88n7r weeks with an acceptable medical indication (obstetric, maternal, and/or )? NA: Not Applicable: This patient is being delivered outside of the PC-01 range (82r1i-74t3p) for reasons indicated in the medical record. [...] VTE Prophylaxis: Not Indicated (more content not included)...[facility]01-03-2023 History and physical note* Cassie Constantino [...] 34w6d Is this patient being delivered between 23p1h-39k1y weeks with an acceptable medical indication (obstetric, maternal, and/or )? NA: Not Applicable: This patient is being delivered outside of the PC-01 range (44f0e-56n2y) for reasons indicated in the medical record. [...] plan. Cassie Constantino MD 11/28/2022, 12:48 AM [facility] [id number] History and physical note* Cassie Constantino MD [...] 34w6d Is this patient being delivered between 02k3s-66t6a weeks with an acceptable medical indication (obstetric, maternal, and/or )? NA: Not Applicable: This patient is being delivered outside of the PC-01 range (40o4f-51c2y) for reasons indicated in the medical record. [...] MD 11/28/2022, 12:48 AM documented in this [facility]01-02-2023 Evaluation + Plan note Extracted from:Title:OB High Risk Antepartum Visit *Author:Fredi DORSEY MD Date:11/27/22 Impression and Plan Diagnosis 34 weeks 5 days. Preeclampsia. contractions. Maternal tachycardia.. Course: Worsening, New onset headache may be a signal of worsening symptoms of preeclampsia.. Orders I discussed this case with the maternal- medicine department at [facility] in [facility], Dr. Thea Nieves, she accepted to transfer due to preeclampsia. 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 She is provided with a note for work. Additional diagnosis: Constipation, UTI and [facility]08-19-2022 Hospital Discharge instructions Follow Up Care 07/14/2022 06:07:36 With:Denny Meza Address:Unknown When:07/17/2022 07:24:48 With:DENNY RODRÍGUEZ Address: [address] [place] [place] [address] Business (1) When:Within 3 Day(s) [facility]08-19-2022 Hospital Discharge instructions Follow Up Care 07/14/2022 04:40:16 With:Denny Meza Address: [address], [address] [place] [address]- Business (1) When:07/17/2022 Comments:Appointment has already been scheduledCall Dr if fever>100.5 F, heavy bleedingCall for any problems.Call for severe abdominal painCall physician for heavy vaginal bleedingCall physician if symptoms worsenPlease call if you need to rescheduleReturn for contractions closer, longer, harderReturn ifruptured membranes or vaginal bleeding [facility]05-31-2022 Evaluation + Plan note Diagnostic Tests Pending * Wibkv-4-Bhoupkbkokn 04/25/22 * NIGEL w/Reflex if POS 04/25/22 * Ceruloplasmin 04/25/22 * HCV Antibody RFX to Quant PCR 04/25/22 * HBV Core Ab 04/25/22 * Hepatitis B Surface Antibody 04/25/22 * Hepatitis B Surface Antigen 04/25/22 * Smooth Muscle Antibody Screen 04/25/22 [facility]05-24-2022 Evaluation note* Encounter Date Diagnosis Assessment Notes Treatment Notes Treatment Clinical Notes March, Elevated liver function tests (I CD-10 - R79.89) LABS INDICATED ABOVE [employer] Other Evaluation note* Diagnosis Pelvic pain in female- Primary Unspecified symptom associated with female genital organs [facility]* Diagnosis Chronic pelvic pain in female- Primary Unspecified symptom associated with female genital organs Constipation, unspecified constipation type High-tone pelvic floor dysfunction Other specified disorders of female genital organs Diastasis of rectus abdominis Dysmenorrhea Other specified dyspareunia documented in [facility]* Diagnosis Endometriosis- Primary Endometriosis, site unspecified Pelvic and perineal pain Unspecified symptom associated with female genital organs documented in this [facility]* Diagnosis Pelvic pain in female- Primary Unspecified symptom associated with female genital organs documented [facility]* Diagnosis Pelvic pain in female- Primary Unspecified symptom associated with female genital organs documented in this encounter [facility] note* Diagnosis High-tone pelvic floor dysfunction- Primary Other specified disorders of female genital organs Chronic pelvic pain in female Unspecified symptom associated with female genital organs documented in this encounter [facility] note* Diagnosis Pelvic and perineal pain Unspecified symptom associated with female genital organs documented in this encounter [facility] note* Diagnosis Menorrhagia with regular cycle Pelvic pain in female Unspecified symptom associated with female genital organs Uses control [facility] Preeclampsia, severe, third trimester- Primary Preeclampsia, severe, third trimester [facility]* Diagnosis Pre-eclampsia, severe, delivered- Primary [facility] in [facility]* Diagnosis Dysmenorrhea, unspecified documented in this encounter [facility] HealthcareEvaluation note* Diagnosis Well woman exam with routine gynecological exam Routine gynecological examination [facility] Diagnosis Hypertension, unspecified type (CMS/HCC)- Primary Paroxysmal tachycardia, unspecified (CMS/HCC) Paroxysmal tachycardia, unspecified Chronic right shoulder pain Pain in joint, shoulder region Scapular dyskinesis Lack of coordination [facility]* Diagnosis Pain in female genitalia on intercourse Dyspareunia Endometriosis Endometriosis, site unspecified documented in this encounter [facility] HealthcareEvaluation noteNo assessment information availableOhio State University [facility] Work Phone: Evaluation note* Diagnosis Missed menses , unspecified gestational age Encounter for supervision of normal first in first trimester documented in this encounter [facility]* Diagnosis Nonintractable episodic headache, unspecified headache type- Primary Second trimester ([facility]) state, incidental 13 weeks gestation of ([facility]) documented in this encounter [facility]* Diagnosis Sinusitis, unspecified chronicity, unspecified location- Primary Second trimester ([facility]) state, incidental 17 weeks gestation of ([facility]) Screening, , for anatomic survey ([facility]) Encounter for anatomic survey documented in this encounter [facility]* Diagnosis 20 weeks gestation of ([facility]) Second trimester ([facility]) state, incidental Diabetes mellitus screening Screening for diabetes mellitus documented in this encounter [facility]* Diagnosis Wellness examination- Primary Hypertension, unspecified type Lipid screening Screening for lipoid disorders documented in this [facility]* Diagnosis Wellness examination- Primary Hypertension, unspecified type Lipid screening Screening for lipoid disorders 24 weeks gestation of ([facility]) Second trimester ([facility]) state, incidental Elevated glucose tolerance test Impaired glucose tolerance test documented in this encounter [facility]* Diagnosis Gestational diabetes mellitus (GDM) in second trimester, gestational diabetes method of control unspecified [facility] Diagnosis Wellness examination- Primary Hypertension, unspecified type Lipid screening Screening for lipoid disorders 26 weeks gestation of ([facility]) Second trimester ([facility]) state, incidental induced hypertension, antepartum ([facility]) Transient hypertension of , antepartum Gestational diabetes mellitus (GDM) in second trimester, gestational diabetes method of control unspecified ([facility]) documented in [facility]* Diagnosis Wellness examination- Primary Hypertension, unspecified type Lipid screening Screening for lipoid disorders Hypertension affecting , antepartum ([facility])- Primary 27 weeks gestation of ([facility]) Second trimester ([facility]) state, incidental documented [facility]* Diagnosis Diet controlled gestational diabetes mellitus (GDM) in second trimester- Primary Essential hypertension affecting in third trimester [facility] Diagnosis 28 weeks gestation of - Primary Insulin controlled gestational diabetes mellitus (GDM) in second trimester Essential hypertension affecting in third trimester [facility] Essential hypertension affecting in third trimester [facility] Diagnosis Wellness examination- Primary Hypertension, unspecified type Lipid screening Screening for lipoid disorders 29 weeks gestation of (HHS-HCC) Third trimester (HHS-HCC) state, incidental Hypertension affecting , antepartum (HHS-HCC) Gestational diabetes mellitus (GDM), antepartum, gestational diabetes method of control unspecified(HHS-HCC) documented in this encounter [facility] HealthcareEvaluation [facility]* Diagnosis Insulin controlled gestational diabetes mellitus (GDM) in third trimester- Primary Essential hypertension affecting in third trimester [facility] Diagnosis Insulin controlled gestational diabetes mellitus (GDM) in second trimester [facility] Diagnosis Insulin controlled gestational diabetes mellitus (GDM) in second trimester [facility] Diagnosis Wellness examination- Primary Hypertension, unspecified type Lipid screening Screening for lipoid disorders Third trimester (HHS-HCC) state, incidental 31 weeks gestation of (HHS-HCC) Pre-eclampsia in third trimester (HHS-HCC) documented in this encounter [facility] HealthcareEvaluation note* Diagnosis Insulin controlled gestational diabetes mellitus (GDM) in third trimester- Primary Essential hypertension affecting in third trimester [facility] N[facility]ative - Reported* Type Description Date Medical History headache Surgical HistoryappendectomySurgical Historyshoulder surgerySurgical History endometriosis Milk Mantra Other History of Present illness Narrative* 26 [...] engaged x 1 year * working at [employer] in [place] [address] Work Phone: Hospital course Narrative No data available for this section [facility] No data available for this section [facility] CenterInstructionsNot on filedocumented in this encounter [facility] filedocumented in this encounter [facility] on filedocumented in this encounter [facility]ructionsNot on filedocumented in this encounter [facility]* Attachments The following attachments cannot be sent through Care Everywhere. * Preeclampsia (Israeli) documented [facility] SystemInstructionsNot on file documented in this encounter[facility] SystemInstructionsNot on file documented in this encounter[facility] SystemInstructionsNot on file documented in this encounter[facility] SystemInstructionsNot on file documented in [facility] SystemProgress note No data available for this section [facility] CenterReason for visit NarrativePT HERE AT REQUEST OF DR RODRÍGUEZ FOR EVALUATION AND TREATMENT OF ELVATED LIVER FUNCTION- ( DR. SAMUEL PT), LABS FROM DR RODRÍGUEZ REVIEWED BY DR Iraheta [employer] Other Summary Purpose Family History Unknown Family [...] Bilateral ureterolysis Surgeon: Dr. Charlene Rodriguez Resident/Fellow/Other Hand Baseball Sewer: Glory Palacio Anesthesia: general I.V. 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 Reason for Referral SpecialtyDiagnoses / ProceduresReferred By ContactReferred To ContactMR IMAGING Diagnoses Pelvic and perineal pain Procedures MRI FEMALE PELVIS WO/W IVCON MRI PELVIS W/O & W/CONTRAST MATERIAL Charlene Rodriguez DO [address] [facility] [address] [place] [address] Mr Imaging Referral IDStatusReasonGladstone DateExpiration DateVisits RequestedVisits [id number] Auto-Generated Referral /[id number] / ProceduresReferred By ContactReferred To [facility] Diagnoses Constipation, unspecified constipation type High-tone pelvic floor dysfunction Diastasis of rectus abdominis Dysmenorrhea Other specified dyspareunia Chronic pelvic pain in female Procedures CONSULT TO PHYSICAL THERAPY PHYSICAL THERAPY EVALUATION HIGH COMPLEX 45 MINS 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, 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 [address] [facility] [address] [place] [address] [facility] [place] [address] [place] [id number] Referral IDStatLulacaterina DateExpiration DateVisits RequestedVisits [id number] Review Auto-Generated Referral / Chief Complaint and Reason for Visit Chief Complaint Admit Date N94.10 N80.9 February 02, 2025 3:1 6pm Additional Source Comments INFORMATION SOURCE (unrecogn ized section and content) DATE CREATED AUTHOR 10/26/2020 [facility] DATE CREATED AUTHOR AUTHOR'S ORGANIZ ATION 11/06/2020 [facility] DATE CREATED AUTHOR AUTHOR'S ORGANIZ ATION 12/17/2020 [facility] DATE CREATED AUTHOR AUTHOR'S ORGANIZ ATION 04/21/2021 [facility] DATE CREATED AUTHOR AUTHOR'S ORGANIZ ATION 06/05/2021 [facility] DATE CREATED AUTHOR AUTHOR'S ORGANIZ ATION 10/02/2021 [facility] DATE CREATED AUTHOR AUTHOR'S ORGANIZ ATION 02/10/2022 [facility] DATE CREATED AUTHOR AUTHOR'S ORGANIZ ATION 12/05/2022 [facility] DATE CREATED AUTHOR AUTHOR'S ORGANIZ ATION 04/30/2024 [facility] DATE CREATED AUTHOR AUTHOR'S ORGANIZ ATION 02/09/2025 [facility] DATE CREATED AUTHOR AUTHOR'S ORGANIZ ATION 03/15/2025 [facility] DATE CREATED AUTHOR AUTHOR'S ORGANIZ ATION 08/03/2025 [facility] DATE CREATED AUTHOR AUTHOR'S ORGANIZ ATION 08/13/2025 [facility] DATE CREATED AUTHOR AUTHOR'S ORGANIZ ATION 08/16/2025 [facility] DATE CREATED AUTHOR AUTHOR'S ORGANIZ ATION 08/20/2025 [facility] DATE CREATED AUTHOR AUTHOR'S ORGANIZ ATION 08/21/2025 [facility] DATE CREATED AUTHOR AUTHOR'S ORGANIZ ATION 08/29/2025 [facility] DATE CREATED AUTHOR AUTHOR'S ORGANIZ ATION 09/12/2025 [facility] DATE CREATED AUTHOR AUTHOR'S ORGANIZ ATION 10/02/2025 [facility] DATE CREATED AUTHOR AUTHOR'S ORGANIZ ATION 10/08/2025 [facility] Care Team (unrecognized sect ion and content) Team MemberRelationshipSpecialtyStart DateEnd Date Denny Rodríguez MD [address] [place] [address] PCP - GeneralFamily Medicine12/03/14Team MemberRelationshipSpecialtyStart DateEnd Date Denny Rodríguez MD [address] [place] [address] PCP - GeneralFamily Medicine12/03/14Team MemberRelationshipSpecialtyStart DateEnd Date Denny Rodríguez MD [address] [place] [address] PCP - GeneralFamily Medicine12/03/14Team MemberRelationshipSpecialtyStart DateEnd Date Denny Rodríguez MD [address] [place] [address] PCP - GeneralFamily Medicine12/03/14Team MemberRelationshipSpecialtyStart DateEnd Date Denny Rodríguez MD [address] [place] [address] PCP - GeneralFamily Medicine12/03/14Team MemberRelationshipSpecialtyStart DateEnd Date Denny Rodríguez MD [address] [place] [address] PCP - GeneralFamily Medicine12/03/14Team MemberRelationshipSpecialtyStart DateEnd Date Denny Rodríguez MD [address] [place] [address] PCP - GeneralFamily Medicine12/03/14Team MemberRelationshipSpecialtyStart DateEnd Date Denny Rodríguez MD [address] [place] [phone] PCP - GeneralFamily Medicine12/03/14Team MemberRelationshipSpecialtyStart DateEnd Date Denny Rodríguez MD [address] [place] [address] PCP - GeneralFamily Medicine12/03/14Team MemberRelationshipSpecialtyStart DateEnd Date Denny Rodríguez MD [address] [place] [address] [facility] - [facility]12/03/14Team MemberRelationshipSpecialtyStart DateEnd Date Denny Rodríguez MD [address] [place] [address] PCP - [facility] Vcipfufnzh63/1/21 Denny Rodríguez MD [address] [place] [address] PCP - GeneralFadely Medicine04/10/23 Denny Rodríguez MD [address] [place] [address] PCP - [facility]02/24/23 Zenobia [facility] NP [address] [place] [address] [facility]10/05/23 Trista Thao NP [address] [place] [address] Nurse PractitionerPulmonary Hixmqam81/10/23Team MemberRelationshipSpecialtyStart DateEnd Date Denny Rodríguez MD [address] [place] [phone] PCP - GeneralFamily Medicine12/03/14Team MemberRelationshipSpecialtyStart DateEnd Date Denny Rodríguez MD [address] [place] [phone] PCP - [facility]Luc[facility] Centerly Medicine12/03/14Team MemberRelationshipSpecialtyStart DateEnd Date Denny Rodríguez MD [address] [place] [id number] PCP - [facility] Cstgzzedrh45/1/21 Denny Rodríguez MD [address] [place] [facility] PCP - [facility]02/24/23 Eliceo Beltran DO [address] [place] [address] PCP - Generalmily Medicine02/14/24Team MemberRelationshipSpecialtyStart DateEnd Date Denny Rodríguez MD [address] [place] [address] PCP - [facility] Lbmyxnukys73/1/21 Denny Rodríguez MD [address] [place] [address] PCP - [facility]02/24/23 Eliceo Beltran DO [address] [place] [address] PCP - [facility] Medicine02/14/24Team MemberRelationshipSpecialtyStart DateEnd Date Denny Rodríguez MD [address] [place] [address] PCP - [facility] Qpjsxrnpsf22/1/21 Denny Rodríguez MD [address] [place] [address] PCP - [facility]02/24/23 Eliceo Beltran DO [address] [place] [address] PCP - [facility]02/14/24Team MemberRelationshipSpecialtyStart DateEnd Date Denny Rodríguez MD [address] [place] [address] PCP - [facility] Dyystkilxa89/1/21 Denny Rodríguez MD [address] [place] [address] PCP - [facility]02/24/23 Eliceo Beltran DO [address] [place] [address] PCP - [facility]02/14/24Team MemberRelationshipSpecialtyStart DateEnd Date Denyn Rodríguez MD [address] [place] [address] PCP - [facility] Zfbqdtlrfu89/1/21 Denny Rodríguez MD [address] [place] [address] PCP - [facility]02/24/23 Eliceo Beltran DO [address] [place] [address] PCP - GeneralFamily Medicine02/14/24Team MemberRelationshipSpecialtyStart DateEnd Date Denny Rodríguez MD [address] [place] [address] PCP - [facility] Pokgaaprsk00/1/21 Eliceo Beltran DO [address] [place] [address] PCP - Generalmily Medicine02/14/24Team MemberRelationshipSpecialtyStart DateEnd Date Eliceo Beltran DO [address] [place] [address] PCP - GeneralFamily Medicine02/14/24Team MemberRelationshipSpecialtyStart DateEnd Date Eliceo Beltran DO [address] [place] [address] PCP - Generalmily Medicine02/14/24 Team Status: Active [...] [address] [place] [address] PCP - [facility]02/14/24 Eliceo Beltran DO [address] [place] [address] PCP - [facility]07/27/2412Team MemberRelationshipSpecialty Start DateEnd Date Eliceo Beltran DO [address] [place] [address] PCP - [facility] Medicine02/14/24 Eliceo Beltran DO [address] [place] [address] PCP - [facility] [place] [employer]07/27/2412Team MemberRelationshipSpecialty Start DateEnd Date Eliceo Beltran DO [address] [place] [address] PCP - [facility]02/14/24 Eliceo Beltran DO [address] [place] [address] PCP - [facility]07/27/2412Team MemberRelationshipSpecialty Start DateEnd Date Eliceo Beltran DO [address] [place] [address] PCP - [facility]02/14/24 Eliceo Beltran DO [address] [place] [address] PCP - [facility]07/27/2412Te MemberRelationshipSpecialty Start DateEnd Date Eliceo Beltran, DO [address] [place] [address] PCP - [facility]02/14/24 Eliceo Beltran, DO [address] [place] [address] PCP - [facility]07/27/2412Team MemberRelationshipSpecialty Start DateEnd Date Eliceo Beltran, DO [address] [place] [address] PCP - [facility]02/14/24 Eliceo Beltran, DO [address] [place] [address] PCP - [facility]07/27/2412Team MemberRelationshipSpecialty Start DateEnd Date Eliceo Beltran, DO [address] [place] [address] PCP - [facility] Medicine02/14/24 Eliceo Beltran, DO [address] [place] [address] PCP - [facility]07/27/2412Te MemberRelationshipSpecialty Start DateEnd Date Eliceo Beltran, DO [address] [place] [address] PCP - Generalmily Medicine02/14/24 Eliceo Beltran, [address] [place] [address] PCP - [facility] [place] [facility]07/27/2412Team MemberRelationshipSpecialty Start DateEnd Date Eliceo Beltran DO [address] [place] [address] PCP - [facility]02/14/24 Eliceo Beltran, [address] [place] [address] PCP - [facility]07/27/2412Team MemberRelationshipSpecialty Start DateEnd Date Eliceo Beltran DO [address] [place] [address] PCP - [facility]02/14/24 Eliceo Beltran DO [address] [place] [address] PCP - [facility]07/27/2412Team MemberRelationshipSpecialty Start DateEnd Date Eliceo Beltran DO [address] [place] [address] PCP - [facility] Medicine02/14/24 Eliceo Beltarn DO [address] [place] [address] PCP - [facility]07/27/2412Team MemberRelationshipSpecialty Start DateEnd Date Denny Rodríguez MD [address] [place] [address] PCP - [facility] Medicine12/02/18 MemberRelationshipSpecialtyStart DateEnd Date Denny Rodríguez MD [address] [place] [address] PCP - [facility] Medicine12/02/18 MemberRelationshipSpecialtyStart DateEnd Date Eliceo Beltran, DO [address] [place] [address] PCP - [facility]02/14/24 Eliceo Beltran, DO [address] [place] [address] PCP - [facility]07/27/2412Te MemberRelationshipSpecialty Start DateEnd Date Eliceo Beltran, DO [address] [place] [address] PCP - [facility]02/14/24 Eliceo Beltran, DO [address] [place] [address] PCP - [facility]07/27/2412Te MemberRelationshipSpecialty Start DateEnd Date Eliceo Beltran, DO [address] [place] [address] PCP - [facility]02/14/24 Eliceo Beltran, DO [address] [place] [address] PCP - [facility] [place] [facility]07/27/2412Team MemberRelationshipSpecialty Start DateEnd Date Eliceo Beltran DO [address] [place] [address] PCP - GeneralFamily Medicine02/14/24 Eliceo Beltran DO [address] [place] [address] PCP - [facility] [place] [facility]07/27/2412Team MemberRelationshipSpecialty Start DateEnd Date Denny Rodríguez MD [address] [place] [address] PCP - GeneralFamily Medicine12/02/18Team MemberRelationshipSpecialtyStart DateEnd Date Eliceo Beltran DO [address] [place] [address] PCP - GeneralFamily Medicine02/14/24 Eliceo Beltran DO [address] [place] [address] PCP - [facility]07/27/2412Team MemberRelationshipSpecialty Start DateEnd Date Eliceo Beltran DO [address] [place] [address] PCP - GeneralFamily Medicine02/14/24 Eliceo Beltran DO [address] [place] [address] PCP - [facility]07/27/2412Team MemberRelationshipSpecialty Start DateEnd Date Denny Rodríguez MD [address] [place] [address] PCP - Generalmily Medicine12/02/18Team MemberRelationshipSpecialtyStart DateEnd Date Denny Rodríguez MD [address] [place] [address] PCP - [facility]Luc[facility] Centerly [facility]12/02/18Team MemberRelationshipSpecialtyStart DateEnd Date Eliceo Beltran DO [address] [place] [address] [facility]/14/24 Eliceo Beltran DO [address] [place] [address] PCP - [facility]07/27/2412Team MemberRelationshipSpecialty Start DateEnd Date Eliceo Beltran DO [address] [place] [address] PCP - [facility]02/14/24 Eliceo Beltran DO [address] [place] [address] PCP - [facility] [place] [facility]07/27/2412Team MemberRelationshipSpecialty Start DateEnd Date Denny Rodríguez MD [address] [place] [address] [facility]12/02/18Team MemberRelationshipSpecialtyStart DateEnd Date Denny Rodríguez MD [address] [place] [address] PCP - GeneralFamily Medicine12/02/18Team MemberRelationshipSpecialtyStpalacios DateEnd Date Denny Rodríguez MD [address] [place] [address] PCP - [facility] Wdosjtepbd65/1/ Denny Rodríguez MD [address] [place] [address] PCP - GeneralFamily Medicine Denny Rodríguez MD [address] [place] [address] PCP - [facility] Eliceo Beltran DO [address] [place] [address] PCP - [facility]02/14/24 Eliceo Beltran DO [address] [place] [address] PCP - [facility]07/27/2412 [facility] NP [address] [place] [address] Nurse PractitionerFamily Llpbvdpm19/10/235 Trista Thao NP [address] [place] [address] Nurse PractitionerPulmonary Ikbxfke31/10/235Team MemberRelationship SpecialtyStart DateEnd Date Eliceo Beltran DO [address] [place] [address] PCP - GeneralFamily Medicine02/14/24 Eliceo Beltran [address] [place] [address] PCP - [facility] [place] [facility]07/27/2412Team MemberRelationshipSpecialty Start DateEnd Date Denny Rodríguez MD [address] [place] [address] PCP - GeneralFamily Medicine12/02/18 Source Comments (unrecognize d section and content) In the event this informatio n is protected by the Federal Confidentiality of Alcohol and Drug Abuse Patient Records regulations: The Federal rules restrict any use of the information to criminally investigate or prosecute any alcohol or drug abuse patient.[facility] CenterIn the event this information is protected by the Federal Confidentiality of Alcohol and Drug Abuse Patient Records regulations: The Federal rules restrict any use of the information to criminally investigate or prosecute any alcohol or drug abuse patient.[facility] CenterIn the event this information is protected by the Federal Confidentiality of Alcohol and Drug Abuse Patient Records regulations: The Federal rules restrict any use of the information to criminally investigate or prosecute any alcohol or drug abuse patient.[facility] CenterIn the event this information is protected by the Federal Confidentiality of Alcohol and Drug Abuse Patient Records regulations: The Federal rules restrict any use of the information to criminally investigate or prosecute any alcohol or drug abuse patient.[facility] CenterIn the event this information is protected by the Federal Confidentiality of Alcohol and Drug Abuse Patient Records regulations: The Federal rules restrict any use of the information to criminally investigate or prosecute any alcohol or drug abuse patient.[facility] CenterIn the event this information is [...] or prosecute any alcohol or drug abuse patient.[facility] CenterIn the event this information is protected by the Federal Confidentiality of Alcohol and Drug Abuse Patient Records regulations: The Federal rules restrict any use of the information to criminally investigate or prosecute any alcohol or drug abuse patient.[facility] CenterIn the event this information is protected by the Federal Confidentiality of Alcohol and Drug Abuse Patient Records regulations: The Federal rules restrict any use of the information to criminally investigate or prosecute any alcohol or drug abuse patient.[facility] CenterIn the event this information is protected by the Federal Confidentiality of Alcohol and Drug Abuse Patient Records regulations: The Federal rules restrict any use of the information to criminally investigate or prosecute any alcohol or drug abuse patient.[facility] CenterIn the event this information is protected by the Federal Confidentiality of Alcohol and Drug Abuse Patient Records regulations: The Federal rules restrict any use of the information to criminally investigate or prosecute any alcohol or drug abuse patient.[facility] CenterIn the event this information is protected by the Federal Confidentiality of Alcohol and Drug Abuse Patient Records regulations: The Federal rules restrict any use of the information to criminally investigate or prosecute any alcohol or drug abuse patient.[facility] CenterIn the event this information is protected by the Federal Confidentiality of Alcohol and Drug Abuse Patient Records regulations: The Federal rules restrict any use of the information to criminally investigate or prosecute any alcohol or drug abuse patient.[facility] CenterIn the event this information is protected by the Federal Confidentiality of Alcohol and Drug Abuse Patient Records regulations: The Federal rules restrict any use of the information to criminally investigate or prosecute any alcohol or drug abuse patient.[facility] CenterIn the event this information is protected by the Federal Confidentiality of Alcohol and Drug Abuse Patient Records regulations: The Federal rules restrict any use of the information to criminally investigate or prosecute any alcohol or drug abuse patient.[facility] Reason for Visit (unrecogniz ed section and content) ReasonCommentsMenstrual ProblemReasonCommentsVaginal BleedingReasonComments EndometriosisReasonCommentsInsurance AuthorizationOrilissaReasonCommentsPelvic PainSpecialtyDiagnoses / ProceduresReferred By ContactReferred To ContactOB/MAINTENANCE CRAFTSMAN / GYNECOLOGY Diagnoses Painful menstrual periods Painful Periods Procedures OFFICE/OUTPATIENT ESTABLISHED SF MDM 10-19 MIN EST WHI PATIENT Jihan Downs, 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 [address] [place] [id number] Jihan Downs, 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 [address] [place] [id number] Referral IDStatusReasonStart DateExpiration DateVisits RequestedVisits [id number] MRI SpecialtyDiagnoses / ProceduresReferred By ContactReferred To ContactMR IMAGING Diagnoses Pelvic and perineal pain Procedures MRI FEMALE PELVIS WO/W IVCON MRI PELVIS W/O & W/CONTRAST MATERIAL Charlene Rodriguez DO [address] [facility] [address] [place] [address] Mr Imaging [place] [address] Referral IDStatusReasonStart DateExpiration DateVisits RequestedVisits [id number] Auto-Generated Referral /[id number] DateCommentsRefill Ynglmea6201/02/2024eason CommentsMenorrhagiaCramping with bleedingReasonCommentsSurgery Cancelled SpecialtyDiagnoses / ProceduresReferred By ContactReferred To Contact Diagnoses Preeclampsia, severe, third trimester Procedures O14.13 - Preeclampsia, severe, third trimester Kathe Ryder, [address] [place] [address] [facility] [address] [place] [address] Referral IDStatusReasonStart DateExpiration DateVisits RequestedVisits [id number] Pressure CheckReasonCommentsDysmenorrhea ReasonCommentsWell Women VisitReasonCommentsShoulder PainReasonCommentsPainful IntercourseReasonCommentsAmenorrheaReasonCommentsRoutine VisitReason CommentsGestational DiabetesSpecialtyDiagnoses / ProceduresReferred By Contact Referred To ContactMaternal and Medicine Diagnoses Gestational diabetes mellitus (GDM) in second trimester, gestational diabetes method of control unspecified Nathan Pop, DO [address] [place] [address] [place] [address] Phone: tel: fax: Maternal- Medicine at [facility] [address] [place] [address] Phone: tel: fax: Referral IDStatusReasonStart DateExpiration DateVisits RequestedVisits [id number] Review Specialty Services Required /[id number] consult Scheduled Active and Recently Administ ered [...] every 2-3 minutes with cervical changes or Waldorf units (MVU) greater than 200 in a [...] BE BASED ON THE PRIMARY CLINICAL RECORDS. [employer] provides no warranty or guarantee of the accuracy or completeness of information in this document.
[2025-10-28 15:14] VITALS: BP 127/103; PULSE 97; TEMP 36.8
[2025-10-28 15:35] VITALS: BP 128/84
== END 2025-10-28 15:48 | disposition home or self-care (01) ==
LOC: FBCO 15:06 → FBC 15:07
PROVIDERS: Family Provider Family Medicine; PCP Family Medicine; Visit Provider Obstetrics & Gynecology
DX: O16.3 Unspecified maternal hypertension, third trimester (principal)
CPT/HCPCS: 59025

== ENCOUNTER 2025-10-29 12:06 | Outpatient (REF) | payer OTHER, SELFPAY ==
--- OUTSIDE RECORDS SUMMARY | 2025-10-29 09:00 | XMS_ITS | Encounter Summary ---
Author Organization [facility] Address [address] [place] [address] Care Team Providers Care Finish Remover Name Role Phone CharlotteEliceo medina Primary Care Provider Charlottecarol Eliceo Hurtado DO Unavailable [phone] Reason for Visit * ReasonCommentsRoutine Visit Encounter Details DateTypeDepartmentCare Team (Latest Contact Info)Tpwbsyptuew34/04/2025 9:00 AM ESTRoutine [facility] [address] [place] [address] Nathan Pop DO [address] [place], [place] [id number] Third trimester ([facility]); 35 weeks gestation of ([facility]); H/O pre-eclampsia in prior , currently ([facility]); H/O premature delivery Social History Tobacco UseTypesPacks/DayYears UsedDateSmoking Tobacco: NeverSmokeless Tobacco: NeverAlcohol UseStandard Drinks/WeekCommentsNever0 (1 standard drink = 0.6 oz pure alcohol)caffeine: 1-2 cups per day, coffee and oyzW3364 Health Literacy AnswerDate RecordedHow often do you [...] relatives?Once a week12/29/2024How often do you attend anglican or sikh services?Patient tesqegcw13/03/2025Do you belong to any clubs or organizations such as anglican groups, unions, Ivaldi or athletic leodan ups, or school groups?No12/29/2024How often do you attend meetings of the clubs or organizations you belong to?Patient mwjasdek99/03/2025re you , , , , never , [...] hard at all12/29/2024PHQ-2AnswerDate RecordedPatient Health Questionnaire-2 Score0 07/30/2025[facility] [place] [facility] Occup[facility] - Occupational Stress QuestionnaireAnswerDate RecordedDo you feel stress - tense, restless, nervous, or anxious, or unable to sleep at night because yourmind is troubled all the time - these days?Only a quxlxa6712/29/2024Exercise Vital SignAnswerDate Recorded On average, how many [...] steady place to sleep or slept in [place] (including now)?No09/19/2023Housing Stability Vital SignAnswerDate RecordedIn the [...] the highest degree you have received?High school wcigpchh00/29/2023 Estimated Date of KdgxkmqeXjtypctgNxl47/03/2026ased on last menstrual period of 02/21/2025Sex and Gender InformationValueDate RecordedSex Assigned at BirthNot on fileLegal ActXaqwgl44/15/2023 7:18 PM EDTGender IdentityNot on file Sexual OrientationNot on 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 Not on fileNot on fileNot on filedocumented as of this encounter Last Filed Vital Signs Vital SignReadingTime TakenCommentsBlood Rpakjvtz943/8212 9:33 AM EST Pulse--Temperature--Respiratory Rate--Oxygen Saturation--Inhaled Oxygen Concentration--Hdyuxu04.1 kg (170 lb)10/29/2025 9:33 AM ESTHeight--Body Mass Index31.0907/30/2025 3:36 PM EDTdocumented in this encounter Progress Notes * Radha Rahman MA - 10/29/2025 9:00 AM EST Reason for Appointment: Patient ID: [...] Units, Nightly labetalol (NORMODYNE) 200 mg, Oral, 3 times daily metoprolol succinate XL (Toprol-XL) 25 [...] 02/19/2024 Diarrhea 03/24/2025 33 weeks gestation of ([facility]) 10/14/2025 Third trimester ([facility]) 10/14/2025 H/O pre-eclampsia in prior , currently ([facility]) 10/29/2025 H/O premature delivery 10/29/2025 Resolved Ambulatory Problems Diagnosis Date Noted No Resolved Ambulatory Problems Past Medical History: Diagnosis Date Amenorrhea d/t oral contraceptive pills John San infection GDM (gestational diabetes mellitus) ([facility]) Headache History of menstrual cramps ([facility]) Varicella zoster Visual impairment HISTORY PAST MEDICAL HISTORY SOCIAL HISTORY Past Medical History: Diagnosis Date Amenorrhea d/t oral contraceptive pills Endometriosis John San infection GDM (gestational diabetes mellitus) ([facility]) Headache History of menstrual cramps severe Hypertension ([facility]) x1 Varicella zoster unsure Visual impairment [...] History: Procedure Laterality Date [place]CT[place] [facility] [place] retained placenta DISTAL [...] nursing note reviewed. Exam conducted with a loss prevention/safety district manager present. Vitals: Estimated body mass index is 31.09 kg/m?? as calculated from the following: Height as of 07/30/25: 5' 2 . Weight as of this encounter: 170 lb. BP: 128/82 Patient's last menstrual period was 02/21/2025. Assessment/Plan ICD-10-CM 1. Third trimester ([facility]) Z34.93 POCT urinalysis dipstick manually resulted CULTURE, GROUP B STREP WITH SUSCEPTIBLITY CULTURE, GROUP B STREP WITH SUSCEPTIBLITY 2. 35 weeks gestation of ([facility]) Z3A.35 3. H/O pre-eclampsia in prior , currently ([facility]) O09.299 4. H/O premature delivery Z87.51 Assessment/Plan Patient is doing well but has complaints of being tired and having maternal discomfort due to . Patient verbalized frequent movement and was instructed to perform kick counts three times per day. labor precautions were given, LARC consent was signed/and was declined, and GBS was obtained. Cervical check was performed and patient is 2cm dilated. Patient to have IOL on 11/09/25, will sign consents next week. Patient to have IOL on 11/09/25 @5aminduction time Orders Placed This Encounter Procedures CULTURE, GROUP B STREP WITH SUSCEPTIBLITY POCT urinalysis dipstick manually resulted Follow Up: Patient is to return to office in 1 week for routine OB appointment Documented by Radha Rahman MA/Candis Yanes LPN on behalf of: Nathan Pop DO documented in this encounter Plan of Treatment DateTypeDepartmentCare Team (Latest Contact Info)Nzjareehmau45/10/2025 2:10 PM ESTRoutine [facility] [address] [address] Nathan Pop DO [address] [place], [place] [id number] NameTypePriorityAssociated DiagnosesOrder ScheduleCULTURE, GROUP B STREP WITH SUSCEPTIBLITYLabRoutine Third trimester ([facility]) Expected: 10/29/2025, Expires: 10/29/2026documented as of this encounter Procedures Procedure NamePriorityDate/TimeAssociated DiagnosisCommentsPOCT URINALYSIS EWLKUACDJvslrmb34/04/2025 9:38 AM EST Third trimester ([facility]) documented in this encounter Results * (ABNORMAL) POCT urinalysis dipstick manually resulted (10/29/2025 9:38 AM EST) ComponentValueRef RangeTest MethodAnalysis TimePerformed AtPathologist SignatureColor, UAYellowClarity, UAClearGlucose, UANegativeNegative - 1999(110) ++++ mg/dLBilirubin, UANegativeNegative - 4(70) +++ mg/dLKetones, UA NegativeNegative - 160(16) ++++ mg/dLSpec Grav, UA1.0101 - 1.03Blood, UA NegativeNegative - 50 Teodoro/mcLpH, UA6.05 - 9Protein, UANegativeNegative - 2000(20) ++++ mg/dLUrobilinogen, UA1.00.2 - 12 mg/dLLeukocytes, UA1+Negative - 500+++ Robinson/mcLNitrite, UANegativeNegative - PositiveSpecimen (Source) Anatomical Location / LateralityCollection Method / VolumeCollection Time Received UkjaXrmow48/04/2025 9:38 AM EST Narrative Authorizing ProviderResult TypeResult StatusCorey Kiesha DOPOINT OF CARE TEST ENTER/EDIT ORDERABLESFinal Result documented in this encounter Visit Diagnoses Diagnosis Third trimester ([facility] state, incidental 35 weeks gestation of ([facility]) H/O pre-eclampsia in prior , currently ([facility]) H/O premature delivery documented in this encounter Care Teams Team MemberRelationshipSpecialtyStart DateEnd Date Eliceo Beltran DO [address] [place] [address] PCP - GeneralFamily Medicine02/14/24 Eliceo Beltran DO [address] [place] [address] PCP - Medical [place] [employer]07/27/2412documented as of this encounter
--- OUTSIDE RECORDS SUMMARY | 2025-10-29 12:11 | XMS_ITS | Encounter Summary ---
Author Organization [facility] tem Address [id number] [address] [place] [address] Care Team Providers Care Office Assistant Name Role Phone Cruz Rodríguez MD Primary Care Provider [phone] Encounter Details DateTypeDepartmentCare Team (Latest Contact Info)Knvyugutpod86/25/2025Telephone Maternal- Medicine at [facility] [address] [facility] [place] [id number] Cha Harris, DIALLO Social History Tobacco UseTypesPacks/DayYears [...] or more drinks on one occasion?Never5ChildcareAnswer Date WznuzeieEktofjwojOimjpee85/13/2019EmploymentAnswerDate RecordedEmployment Zyxwsbr7405/08/2019Hunger ScreeningAnswerDate RecordedWithin the past 12 months we worried whether our food would run out before we got money to buy more.Never True09/10/2025Within the past 12 months the food we bought just didn't last and we didn't have money to get more.Never True09/10/2025Purpose - LifeAnswerDate RecordedPurpose and direction in ntqeKhwrwet82/11/2021Estimated Date of ZkcdzozlTczwixkcFli59/03/2026Based on last menstrual period of 02/21/2025 (Exact Date)Sex and Gender InformationValueDate RecordedSex Assigned at BirthNot on fileLegal AzcKlggmu92/07/2019 2:55 PM ESTGender IdentityNot on fileSexual OrientationNot [...] Plan of Treatment DateTypeDepartmentCare Team (Latest Contact Info)Hgzhvuwfyjl97/09/2025 2:30 PM ESTOffice Visit Maternal- Medicine at [facility] [address] [place] [phone] Kayleigh Rizzo, PAAlbinC [address] [address] documented as of this encounter Visit Diagnoses Diagnosis Insulin controlled gestational diabetes mellitus (GDM) in second trimester documented in this encounter Care Teams Team MemberRelationshipSpecialtyStart DateEnd Date Cruz Rodríguez MD [address] [place] [address] PCP - GeneralFamily Medicine12/02/18documented as of this encounter
--- OUTSIDE RECORDS SUMMARY | 2025-10-29 12:11 | XMS_ITS | Patient Health Record ---
Author Organization [facility] [address] Address [address] [place] [address] Care Team Providers Care Hand Bootmaker Name Role Phone Cruz Rodríguez Primary Care [...] Quad PFS (0.5mL Admin) 18 y/o & btapsBujplgx05/30/9118Hxzjywrr6736 Fluzone Quad PFS (0.5mL Admin) 6 months & fcxwhJxnalpy63/17/9498Bylicvuq0745 Fluzone, 6mo & older, Quad MDV (0.5mL Admin)Dikajfw6507/16/20234429Avxnazks2809 Fluzone, 6mo & older, Quad PFS (0.5mL Admin)Tjycoge84/18/2023Contraindications z2023 Fluzone, 6mo & older, Quad PFS (0.5mL Admin)Fxeyuvj44/20/2024Refused Social History Tobacco Use: Social History Observation [...] Status W/U Status Risk Notes Problem Tachycardia (4433670) Tachycardia (R00.0) ActiveconfirmedProblemObesity (992252513)Obesity (BMI 30-39.9) (E66.9)Active confirmed Plan Of Treatment No Information Insurance Providers Payer Name Payer Address Payer Phone Subscriber Number Group Number Insured Name Patient Relationship to Insured Coverage Start Date Coverage End Date [facility] [address] [place] [address] [id number] Driss Woodruff Self - patient is the insured Medical [place] [facility] [address] [place] [phone] [id number], AlexisSelf - patient is the insured Medical (General) History Medical History History ICD Code Tachycardia R00.0 Surgical History Surgery Date(Month/Year) right shoulder surgery endometriosisappendectomyHospitalization History Reason Date(Month/Year) surgeries childbirth
--- OUTSIDE RECORDS SUMMARY | 2025-10-29 12:11 | XMS_ITS | Encounter Summary ---
Author Organization [facility] Address [address] [place] [address] Care Team Providers Care Engineering Specialist Technician Name Role Phone RubyEliceo Bryant DAY Primary Care Provider [phone] Ruby Eliceo Hurtado DO Unavailable [phone] Encounter Details DateTypeDepartmentCare Team (Latest Contact Info)Tuuacpugnxe80/30/2025Travel Social History Tobacco UseTypesPacks/DayYears UsedDateSmoking Tobacco: NeverSmokeless Tobacco: NeverAlcohol UseStandard Drinks/WeekCommentsNever0 (1 standard drink = 0.6 oz pure alcohol)caffeine: 1-2 cups per day, coffee and hvfV6063 Health Literacy AnswerDate RecordedHow often do you [...] week12/29/2024How often do you attend sabianist or taoism services?Patient /03/2025Do you belong to any clubs or organizations such as sabianist groups, unions, fraternal or athletic leodan ups, or school groups?No12/29/2024How often do you attend meetings of the clubs or organizations you belong to?Patient zyrigewb89/03/2025re you , , , , never , [...] hard at all12/29/2024PHQ-2AnswerDate RecordedPatient Health Questionnaire-2 Score0 07/30/2025[facility] [place] [facility] - Occupational Stress QuestionnaireAnswerDate RecordedDo you feel stress - tense, restless, nervous, or anxious, or unable to sleep at night because yourmind is troubled all the time - these days?Only a azpabo5212/29/2024Exercise Vital SignAnswerDate Recorded On average, how many [...] slept in [facility] (including now)?No09/19/2023Housing Stability Vital SignAnswerDate RecordedIn the [...] the highest degree you have received?High school jhghuczh79/29/2023 Estimated Date of NaifabohCfaapcuiJuj89/03/2026ased on last menstrual period of 02/21/2025Sex and Gender InformationValueDate RecordedSex Assigned at BirthNot on fileLegal XwxQofmbj51/15/2023 7:18 PM EDTGender IdentityNot on file Sexual OrientationNot on 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 Not on fileNot on fileNot on filedocumented as of this encounter Plan of Treatment DateTypeDepartmentCare Team (Latest Contact Info)Oojatgtsiiv65/10/2025 2:10 PM ESTRoutine [facility] [place] [facility] [address] [place] [address] Nathan Pop, DO [address] [place] [address] [place] [address] documented as of this encounter Visit Diagnoses Not on filedocumented in this encounter Care Teams Team MemberRelationshipSpecialtyStart DateEnd Date Eliceo Beltran DO [address] [place] [address] PCP - GeneralFamily Medicine02/14/24 Eliceo Beltran DO [address] [place] [address] PCP - Medical [employer]07/27/2412documented as of this encounter
--- OUTSIDE RECORDS SUMMARY | 2025-10-29 12:11 | XMS_ITS | Encounter Summary ---
Author Organization [facility] Address [address] [place] [address] Care Team Providers Care Business Management Associate Name Role Phone Eliceo Beltran Primary Care Provider [phone] CharlottegeovaniEliceo kauffman Unavailable [phone] Encounter Details DateTypeDepartmentCare Team (Latest Contact Info)Iijvqdzmlag27/22/2025Clinisync Result Encounter [facility] Unsolicited Steph Keane, DEVYN [address] [facility] [place] [address] Social History Tobacco UseTypesPacks/DayYears UsedDateSmoking Tobacco: NeverSmokeless Tobacco: NeverAlcohol UseStandard Drinks/WeekCommentsNever0 (1 standard drink = 0.6 oz pure alcohol)caffeine: 1-2 cups per day, coffee and [id number] Health Literacy AnswerDate RecordedHow often do you [...] week12/29/2024How often do you attend buddhist or tenriism services?Patient kjrbhaah07/03/2025Do you belong to any clubs or organizations such as buddhist groups, unions, [place] or athletic leodan ups, or school groups?No12/29/2024How often do you attend meetings of the clubs or organizations you belong to?Patient dccbpsji20/03/2025re you , , , , never , [...] hard at all12/29/2024PHQ-2AnswerDate RecordedPatient Health Questionnaire-2 Score0 07/30/2025[facility] [place] of Occupational Health - Occupational Stress QuestionnaireAnswerDate RecordedDo you feel stress - tense, restless, nervous, or anxious, or unable to sleep at night because yourmind is troubled all the time - these days?Only a mshpbn5112/29/2024Exercise Vital SignAnswerDate Recorded On average, how many [...] the highest degree you have received?High school lhimkmae93/29/2023 Estimated Date of FovlsmkfSwyeqpcyNaw00/03/2026ased on last menstrual period of 02/21/2025Sex and Gender InformationValueDate RecordedSex Assigned at BirthNot on fileLegal SbmIyvxte65/15/2023 7:18 PM EDTGender IdentityNot on file Sexual OrientationNot on 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 Not on fileNot on fileNot on filedocumented as of this encounter Plan of Treatment DateTypeDepartmentCare Team (Latest Contact Info)Vmooupcsjqu21/10/2025 2:10 PM ESTRoutine [facility] [place] [facility] [address] [place] [phone] Nathan Pop, DO [address] [place] [address] documented as of this encounter Procedures Procedure NamePriorityDate/TimeAssociated DiagnosisCommentsUS OB BPP W NON-PNLNIM8710/17/2025 9:22 AM EST documented in this encounter Results * US OB BPP W NON-STRESS (10/17/2025 9:22 AM EST)Anatomical Region LateralityModalityOtherSpecimen (Source)Anatomical Location / Laterality Collection Method / VolumeCollection TimeReceived Time10/17/2025 9:22 AM EST Narrative 10/17/2025 9:25 AM EST [facility] ?[address] ? [place] [address] ? Ultrasound Report ? Signed ? Patient: DRISS GAMA ?MR#: [id number] ?? : 1995 ?Acct:[id number] ?? Age/Sex: 30 / F ?ADM Date: 10/17/25 ?? Loc: US ? Attending Dr: Steph Keane ? Ordering Physician: Steph Keane ?? Date of Service: 10/17/25 ?? Procedure(s): US OB BPP w non-stress ?? Accession Number(s): [id number] ? cc: Steph Keane; Yomaira BELTRAN ? [facility] ? [address] ? [place] [address] ? Patient Name: ?? DRISS Daniel GAMA ? MRN: [id number] ? date: 1995 ?Sex: F ?? Assigned Patient Location: [facility] ?? Current Patient Location: ? Accession/Order Number: [id number] ?? Exam Date: 10/17/2025 ??08:11 ?Report Date: 10/17/2025 ??09:22 ? At the request of: ?? STEPH ??LAKHWINDER ? Procedure: ??US OB BPP w non-stress ? Biophysical profile. ? Reason for exam: Gestational diabetes ? COMPARISON: 10/10/2025 ? TECHNIQUE: Transabdominal imaging of the gravid uterus was obtained. ? FINDINGS: The anatomic pathology assistant reports a BPP of 8 out of [...] Dictation Location: RADIO-PC-18 ? Electronically authenticated by: [id number] ??Y ?? Date: 10/17/2025 ??09:22 ? Dictated By: ?Junito Mcgrath M.D. ? Signed By: ?10/17/25924 ? DD/ 1 ? TD/TT: ? Manufacturing Technician: Procedure Note Radiology, Radiologist, - 10/17/2025 [place] [address] Ultrasound Report Signed Patient: DRISS GAMA MMR#: [id number] : 1995Acct:[id number] Age/Sex: 30 / FADM Date: 10/17/25 Loc: US Attending Dr: Steph Keane Ordering Physician: Steph Keane Date of Service: 10/17/25 Procedure(s): US OB BPP w non-stress Accession Number(s): [id number] cc: Steph Keane; Yomaira BELTRAN [address] [address] Patient Name: DRISS GAMA MRN: [id number] date: 1995 Sex: F Assigned Patient Location: [facility] Current Patient Location: Accession/Order Number: [id number] Exam Date: 10/17/2025 08:11 Report Date: 10/17/2025 09:22 At the request of: STEPH KEANE Procedure: US OB BPP w non-stress Biophysical profile. Reason for exam: Gestational diabetes COMPARISON: 10/10/2025 TECHNIQUE: Transabdominal imaging of the gravid uterus was obtained. FINDINGS: The anatomic pathology assistant reports a BPP of 8 out of 8. LEONEL is normal at13.2 cm. heart rate 144 bpm. Nuchal cord is present. US/US OB BPP w non-stress IMPRESSION: BPP 8 out of 8. Nuchal cord is present. This was reported to the nurse by the architectural technologist. Impression dictated by: Junito Mcgrath Jr., D.O. 10/17/2025 9:22 AM Dictation Location: [facility] Electronically authenticated by: [id number] Y Date: 9:22 Dictated By: Junito Mcgrath M.D. Signed By:10/17/25924 DD/ 1 TD/TT: Manufacturing Technician: Authorizing ProviderResult TypeResult StatusKrchristianacarea Lakhwinder NPCLINISYNC IMAGING Final Result documented in this encounter Visit Diagnoses Not on filedocumented in this encounter Care Teams Team MemberRelationshipSpecialtyStart DateEnd Date Eliceo Beltran DO [address] [place] [address] PCP - GeneralFami Medicine02/14/24 Eliceo Beltran DO [address] [place] [address] PCP - Medical [employer]07/27/2412documented as of this encounter
--- OUTSIDE RECORDS SUMMARY | 2025-10-29 12:11 | XMS_ITS | Encounter Summary ---
Author Organization [facility] Address [id number] [address] [place] [address] Care Team Providers Care Field Crop Farm Worker Name Role Phone Cruz Rodríguez MD Primary Care Provider [phone] Encounter Details DateTypeDepartmentCare Team (Latest Contact Info)Zgtcyxkoxkb02/03/2025Travel Social History Tobacco UseTypesPacks/DayYears UsedDateSmoking Tobacco: NeverSmokeless Tobacco: NeverAlcohol UseStandard Drinks/WeekCommentsNo0 (1 standard drink = 0.6 oz pure alcohol)AUDIT-CAnswerDate RecordedQ1: How often do you have a drink containing alcohol?Never09/10/2025Q2: How many drinks containing alcohol do you have on a typical day when you are drinking?Patient does not drink09/10/2025Q3: How often do you have six or more drinks on one occasion?Never09/10/2025hildcareAnswer Date CmpuenluJtomvgylfUnqhkmi29/13/2019EmploymentAnswerDate RecordedEmployment Ohkcbxv3905/08/2019Hunger ScreeningAnswerDate RecordedWithin the past 12 months we worried whether our food would run out before we got money to buy more.Never True09/10/2025Within the past 12 months the food we bought just didn't last and we didn't have money to get more.Never True09/10/2025Purpose - LifeAnswerDate RecordedPurpose and direction in gqkdRcxdmlo16/11/2021Estimated Date of BpiabcvqQvakqniaBgu38/03/2026Based on last menstrual period of 02/21/2025 (Exact Date)Sex and Gender InformationValueDate RecordedSex Assigned at BirthNot on fileLegal HkpAkrhej62/07/2019 2:55 PM ESTGender IdentityNot on fileSexual OrientationNot on filedocumented as of this encounter Plan of Treatment DateTypeDepartmentCare Team (Latest Contact Info)Qymhzuqjswh53/09/2025 2:30 PM ESTOffice Visit [facility] [address] [place] [address] Kayleigh Rizzo, PA-C [address] [address] documented as of this encounter Visit Diagnoses Not on filedocumented in this encounter Care Teams Team MemberRelationshipSpecialtyStart DateEnd Date Cruz Rodríguez MD [address] [place] [address] PCP - GeneralFamily Medicine12/02/18documented as of this encounter
--- OUTSIDE RECORDS SUMMARY | 2025-10-29 12:11 | XMS_ITS | Clinical Summary ---
Author Organization [employer] tem Address [id number] [address] [place] [address] Care Team Providers Care French Binder Name Role Phone Cruz Rodríguez MD Primary [...] ProblemNoted DateDiagnosed DateEssential hypertension affecting in third wsozkugtq07/10/2025Insulin controlled gestational diabetes mellitus (GDM) in third itxkxjtqw56/26/2025Estimated Date of DeliveryCommentsYes 11/28/2025ased on last menstrual period of 02/21/2025 (Exact Date) Encounters DateTypeDepartmentCare RtvbEqkxlozavuq12/03/1423Zlyzti61/25/2025Telephone Maternal- Medicine at [facility] [address] [place] [address] Cha Harris RN 10/20/2025Orders Only Maternal- Medicine at [facility] [address] [place] [address] Kayleigh Rizzo PA-C Essential hypertension affecting in third ujzkuofpq97/14/2025Orders Only Maternal- Medicine at [facility] [address] [place] [address] Zora Samuels RN Essential hypertension affecting in third trimester (Primary Dx); Insulin controlled gestational diabetes mellitus (GDM) in third trimester 10/08/2025Orders Only Maternal [facility] [address] [facility] [address] [place] [address] Danae Ramirez RN Insulin controlled gestational diabetes mellitus (GDM) in third trimester (Primary Dx); Essential hypertension affecting in third trimester; Encounter for follow-up ultrasound of anatomy; History of pre-eclampsia in prior , currently ; Hx of delivery, currently , second tkragkpss07/11/2025 2:30 PM ESTTelemedicine Maternal- Medicine at [facility] [address] [place] [address] Kayleigh Rizzo PA-C Insulin controlled gestational diabetes mellitus (GDM) in third trimester (Primary Dx); Essential hypertension affecting in third gejssvyzw20/11/2025Travel 10/05/2025Telephone Maternal- Medicine at [facility] [address] [place] [address] Anjana Davalos RN 10/04/20259657Brlrtu25/03/2025Telephone Maternal- Medicine at [facility] [address] [facility] [place] [address] Cha Harris, DIALLO 09/28/2025Orders Only Maternal- Medicine at [facility] [address] [facility] [place] [address] Kayleigh Rizzo, PA-C Essential hypertension affecting in third zqyrnpmyp33/27/2025Telephone Maternal- Medicine at [facility] [address] [facility] [address] Verito Gudino LD 09/21/2025Remote Patient Monitoring Maternal- Medicine at [facility] [address] [facility] [place] [address] Kayleigh Rizzo, PA-C Insulin controlled gestational diabetes mellitus (GDM) in third trimester (Primary Dx); Essential hypertension affecting in third vvdhdrnko99/23/2025Orders Only Maternal- Medicine at [facility] [address] [facility] [place] [address] Camila Arciniega APRN-MARIBEL Essential hypertension affecting in third oldacuduc99/22/2025Telephone Maternal- Medicine at [facility] [address] [facility] [place] [address] Cha Harris, DIALLO 09/15/2025Orders Only Maternal- Medicine at [facility] [address] [facility] [place] [address] Kayleigh Rizzo PA-C Essential hypertension affecting in third uppycxbfl68/16/2025 11:00 AM EDTTelemedicine Maternal [facility] [address] [facility] [address] [place] [address] Quynh Clements MD 28 weeks gestation of (Primary Dx); Insulin controlled gestational diabetes mellitus (GDM) in second trimester; Essential hypertension affecting in third ofkpytzqe07/16/2025Orders Only Maternal- Medicine at [facility] [address] [place] [address] Zora Samuels, DIALLO Essential hypertension affecting in third trimester (Primary Dx); Insulin controlled gestational diabetes mellitus (GDM) in second trimester; Encounter for follow-up ultrasound of hzvyede3809/10/20251808Uuvdfk22/10/2025 3:00 PM EDTOffice Visit Maternal- Medicine at [facility] [address] [place] [address] Jean Carlos Denise MD Diet controlled gestational diabetes mellitus (GDM) in second trimester (Primary Dx); Essential hypertension affecting in third ilqnlalum84/08/2025Travel 09/01/2025Telephone Maternal- Medicine at [facility] [address] [place] [address] Cha Harris RN 08/24/2025 1:30 PM EDTSupport Visit Maternal- Medicine at [facility] [address] [place] [address] Teena Sarmiento RN Kerline Steiner RD Gestational diabetes mellitus (GDM) in second trimester, gestational diabetes method of control qscbinlowcj61/28/6498Lmzigq28/27/0664Qaogqr10/26/2025bstract Maternal- Medicine at [facility] [address] [place] [address] External, Scanning Provider 08/19/2025Orders Only Maternal- Medicine at [place] [address] [place] [address] Ref Prov, Not In System 08/18/2025bstract Maternal- Medicine at [place] [address] [place] [address] Quynh Clements MD 08/18/2025Orders Only Maternal- Medicine at [facility] [address] [place] [address] Khalida Garrett RN History of pre-eclampsia in [...] or more drinks on one occasion?Never5ChildcareAnswer Date IneijwehNqmsrbeutIabzhpl98/13/2019EmploymentAnswerDate RecordedEmployment Duurarv6405/08/2019Hunger ScreeningAnswerDate RecordedWithin the past 12 months we worried whether our food would run out before we got money to buy more.Never True09/10/2025Within the past 12 months the food we bought just didn't last and we didn't have money to get more.Never True09/10/2025Purpose - LifeAnswerDate RecordedPurpose and direction in hfxySqrgxqf17/11/2021Estimated Date of AhurszthXcieffdeJap95/03/2026Based on last menstrual period of 02/21/2025 (Exact Date)Sex and Gender InformationValueDate RecordedSex Assigned at BirthNot on fileLegal XvbYzvvhl48/07/2019 2:55 PM ESTGender IdentityNot on fileSexual OrientationNot on file Last Filed Vital Signs Vital SignReadingTime TakenCommentsBlood Ficmvlxt811/8010/ 10:34 AM EDT Tuarh36396/10/2025 2:48 PM EDTTemperature--Respiratory Gmho819412/10/2018 11:10 AM ESTOxygen Bccjvoqrzm05%12/10/2018 11:10 AM ESTInhaled Oxygen Concentration-- Hbpcuj43.6 kg (160 lb)09/10/2025 10:34 AM MCCXxlycs073.5 cm (5' 2.01 )09/04/2025 2:48 PM EDTBody Mass Index29.261 2:48 PM EDT Plan of Treatment DateTypeDepartmentCare Team (Latest Contact Info)Fsuqmucwlcr26/09/2025 2:30 PM ESTOffice Visit Maternal- Medicine at [facility] [address] [place] [address] Kayleigh Rizzo PA-C [address] [address] Health MaintenanceDue DateLast DoneCommentsDepression Wcjxrskct74/08/2007dult BMI Follow Up Plan2013DTaP,Tdap and Td Vaccines (7 - Td or Tdap)2024 2014, 05/03/2000, 12/29/1997, Additional history existsInfluenza Vaccine RSV ( or age 60+ yrs) (1 - Risk 1-dose series)10/03/2025dult BMI Peranezgu47Tobacco Screening Pap Smear Medical Devices Not on file Procedures Procedure NamePriorityDate/TimeAssociated DiagnosisCommentsUS [facility], [facility] LWSTGNjzltpz82/03/2025 12:08 PM EST Essential hypertension affecting in third trimester Insulin controlled gestational diabetes mellitus (GDM) in third trimester [facility] FO[facility], 1 BJERUBuwhryn87/13/2025 8:55 AM EST Essential hypertension affecting in third trimester Insulin controlled gestational diabetes mellitus (GDM) in second trimester Encounter for follow-up ultrasound of anatomy US MFM COMPREHENSIVE ANATOMIC PRUFEYDmhthur17/16/2025 10:56 AM EDT History of pre-eclampsia in prior , currently GLUCOSE TOLERANCE, 3 QDLZPPoznfjr57/20/2025 GLUCOSE TOLERANCE, UBCXTUGVuimfyn41/20/2025 GLUCOSE TOLERANCE, 1 RKOVDcrugfu65/20/2025 SECOND HOUR GLUCOSE TOLERANCE 100 GM QDXZVorvvks48/20/2025 ULTRASOUND XDXOOTRsqhewm03/17/2025 3:39 PM EDTGLU 1H POST 50G LOADRoutine 08/12/2025 from Last 3 Months Results * US MFM OB FOLLOW-UP, 1 FETUS (10/28/2025 12:08 PM EST) Only the most recent of3 resultswithin the time period is included. Anatomical RegionLateralityModalityOB-GYNUltrasoundSpecimen (Source)Anatomical Location / LateralityCollection Method / VolumeCollection TimeReceived Time 10/28/2025 11:14 AM EST Narrative 10/28/2025 4:49 PM EST NAME: ??JAYY REYNAGA : 1995 SEX: F Accession Number: [id number] ORDERING PHYSICIAN: JEAN CARLOS DENISE REFERRING PHYSICIAN: JONY MEJÍA Coding Procedures ? 22900: Ultrasound, uterus, real time with image documentation, follow up,transabdominal ? approach per fetus Indication Screening for follow-up survey, Gestational diabetes, Chronic hypertension affecting , History of prior with pre-eclampsia , History of prior with delivery , Previous surgery to cervix -(D&C). History OB History ? 2. Para 1 ? [id number] Current Cell free DNA ?Low Risk analysis Maternal Assessment Physical Exam ??Height 157 cm, 5 ft 2 in. Weight 73 kg, 160 lb. Initial weight 64 kg, 140 lb. BMI 29.26 kg/m??. Initial ? BMI 25.61 kg/m??. Weight gain 9 kg, 20 lb Method Transabdominal ultrasound examination. View: Suboptimal view: limited by position. Suboptimalview: limited by late gestational age. Hsieh . Number of fetuses: 1 Dating LMP on: ?02/21/2025 GA by LMP ?35 w + 4 d WEI by LMP: ?11/28/2025 Previous Ultrasound on: ?05/01/2025 Type of prior assessment: ?CRL U/S measurement at prior assessment date ? 25.2 mm GA by previous U/S ? 35 w + 0 d WEI by previous Ultrasound: ?12/02/2025 Ultrasound examination on: ? 10/28/2025 GA by U/S based upon: ??AC, BPD, Femur, HC GA by U/S ?36 w + 3 d WEI by U/S: ?11/22/2025 Assigned: ?based on the LMP, selected on 09/10/2025 Assigned GA (weeks days) ? 35 w + 4 d Assigned WEI: ??11/28/2025 General Evaluation Cardiac activity Present. FHR 129 bpm. Presentation: cephalic Placenta: Placental site: anterior, previously documented away from cervical os Umbilical cord: Cord vessels: 3 vessel cord. Insertion site: documented previously Amniotic fluid: Amount of AF: normal amount. MVP 4.8 cm Biometry Standard BPD ?93.0 mm 37w 6d 96% Hadlock OFD ?112.9 mm ?38w 3d 89% Gerda HC ? 328.6 mm ?37w 2d 62% Hadlock AC ? 329.5 mm ?36w 6d 88% Hadlock Femur ??65.1 mm 33w 4d 6% Hadlock Humerus ?58.4 mm 33w 6d 27% Gerda HC / AC ?1.00 EFW ?2,875 g ??67% Hadlock EFW (lb) ? 6 lb EFW (oz) ? 5 oz EFW by: ?Hadlock ([id number]) Extended Tibia ??57.2 mm 33w 4d 21% Gerda Retail Salesworker ? 1.4 mm Head / Face / Neck Cephalic index 0.82 ? 64% Nicolaides Nasal bone: ?documented previously Extremities / Bony Struc FL / BPD ? 0.70 FL / HC ?0.20 FL / AC ?0.20 Other Structures FHR ?129 bpm Anatomy The following structures appear normal: Head/Neck: Cranium. Lateral ventricles. Cavum septi pellucidi. Parenchyma. Heart/Thorax: 4-chamber view. RVOT view. LVOT view. 3-vessel view. 7-rdcqtv-fazgtpr view. Situs. Aortic arch view. ? Interventricular septum. Great vessels. Cardiac position. Cardiac axis. Cardiac size. Cardiac rhythm. ? Diaphragm. Abdomen: Stomach. Kidneys. Bladder. Extremities/Skeleton: Left upper arm. Left forearm. Skeleton The following structures could not be adequately visualized: Face: Profile. Maxilla. Mandible. Heart / Thorax Ductal arch view. Spine: Cervical spine. Thoracic spine. Lumbar spine. Sacral spine. Extremities / ??Right hand. Left hand. Skeleton The following structures were documented previously: Head / Neck ?Choroid plexus. Midline falx. Cerebellum. Cisterna magna. Vermis. ? Neck. Face ?? Lips. Nose. Nasal bone. Orbits. Heart / Thorax Bicaval view. ? Right lung. Left lung. Abdomen ?Abdom. wall. Cord insertion. Right renal artery. Left renal artery. Genitals. Extremities / ??Right upper arm. Right forearm. Right upper leg. Right lower leg. Right foot. Left upper leg. Left lower ? leg. Left foot. Head / Neck other: Cavum vergae Maternal Structures Uterus Visualized Cervix Not visualized ? Approach - Transabdominal Right Ovary ?Not visualized Left Ovary ? Not visualized Cul de Sac ? Suboptimal Impression Single live intrauterine at 35w 4d. Normal growth. EFW measures at the 67%, AC measures at the 88%. Amniotic fluid MVP measures 4.8 cm. Cavum vergae is noted on today's exam, which is a normal variant. Recommendations Please see [facility] recommendations from prior clinical and/or ultrasound report documentation. anatomic survey is incomplete due to late gestational age and suboptimal visualization. Patient is not scheduled to return for additional ultrasound. Please reschedule for specific concerns or indications. The patient states medical induction of labor is schedule for 11/09/25. Subsequent follow up or other follow up as clinically determined by primary OB provider unless otherwise specified by M. Results forwarded to ordering provider so they can follow up with the patient as necessary. Procedure Note Trinity Parson MD - 10/28/2025 NAME: JAYY REYNAGA : 1995 SEX: F Accession Number: [id number] ORDERING PHYSICIAN: JEAN CARLOS DENISE REFERRING PHYSICIAN: JONY MEJÍA Coding Procedures [id number]: Ultrasound, uterus, real time with image documentation, follow up, transabdominal approach per fetus Indication Screening for follow-up survey, Gestational diabetes, Chronic hypertension affecting , History of prior with pre-eclampsia , History of prior with delivery ,Previous surgery to cervix -(D&C). History OB History 2. Para 1 [id number] Current Cell free DNA Low Risk analysis Maternal Assessment Physical Exam Height 157 cm, 5 ft 2 in. Weight 73 kg, 160 lb. Initialweight 64 kg, 140 lb. BMI 29.26 kg/m??. Initial BMI 25.61 kg/m??. Weight gain 9 kg, 20 lb Method Transabdominal ultrasound examination. View: Suboptimal view: limited byfetal position. Suboptimal view: limited by late gestational age. Hsieh . Number of fetuses: 1 Dating LMP on: 02/21/2025 GA by LMP 35 w + 4 d WEI by LMP: 11/28/2025 Previous Ultrasound on: 05/01/2025 Type of prior assessment: CRL U/S measurement at prior assessment date 25.2 mm GA by previous U/S 35 w + 0 d WEI by previous Ultrasound: 12/02/2025 Ultrasound examination on: 10/28/2025 GA by U/S based upon: AC, BPD, Femur, HC GA by U/S 36 w + 3 d WEI by U/S: 11/22/2025 Assigned: based on the LMP, selected on 09/10/2025 Assigned GA (weeks days) 35 w + 4 d Assigned WEI: 11/28/2025 General Evaluation Cardiac activity Present. FHR 129 bpm. Presentation: cephalic Placenta: Placental site: anterior, previously documented away fromcervical os Umbilical cord: Cord vessels: 3 vessel cord. Insertion site: documented previously Amniotic fluid: Amount of AF: normal amount. MVP 4.8 cm Biometry Standard BPD 93.0 mm 37w 6d 96% Hadlock OFD 112.9 mm 38w 3d 89% Gerda HC 328.6 mm 37w 2d 62% Hadlock AC 329.5 mm 36w 6d 88% Hadlock Femur 65.1 mm 33w 4d 6% Hadlock Humerus 58.4 mm 33w 6d 27% Gerda HC / AC 1.00 EFW 2,875 g 67% Hadlock EFW (lb) 6 lb EFW (oz) 5 oz EFW by: Hadlock (NLQ-[id number]-FL) Extended Tibia 57.2 mm 33w 4d 21% Gerda Retail Salesworker 1.4 mm Head / Face / Neck Cephalic index 0.82 64% Nicolaides Nasal bone: documented previously Extremities / Bony Struc FL / BPD 0.70 FL / HC 0.20 FL / AC 0.20 Other Structures FHR 129 bpm Anatomy The following structures appear normal: Head/Neck: Cranium. Lateral ventricles. Cavum septi pellucidi.Parenchyma. Heart/Thorax: 4-chamber view. RVOT view. LVOT view. 3-vessel view. 3-rmaptt-ibiztua view. Situs. Aortic arch view. Interventricular septum. Great vessels. Cardiac position. Cardiacaxis. Cardiac size. Cardiac rhythm. Diaphragm. Abdomen: Stomach. Kidneys. Bladder. Extremities/Skeleton: Left upper arm. Left forearm. Skeleton The following structures could not be adequately visualized: Face: Profile. Maxilla. Mandible. Heart / Thorax Ductal arch view. Spine: Cervical spine. Thoracic spine. Lumbar spine. Sacral spine. Extremities / Right hand. Left hand. Skeleton The following structures were documented previously: Head / Neck Choroid plexus. Midline falx. Cerebellum. Cisterna magna.Vermis. Neck. Face Lips. Nose. Nasal bone. Orbits. Heart / Thorax Bicaval view. Right lung. Left lung. Abdomen Abdom. wall. Cord insertion. Right renal artery. Left renalartery. Genitals. Extremities / Right upper arm. Right forearm. Right upper leg. Rightlower leg. Right foot. Left upper leg. Left lower leg. Left foot. Head / Neck other: Cavum vergae Maternal Structures Uterus Visualized Cervix Not visualized Approach - Transabdominal Right Ovary Not visualized Left Ovary Not visualized Cul de Sac Suboptimal Impression Single live intrauterine at 35w 4d. Normal growth. EFW measures at the 67%, AC measures at the 88%. Amniotic fluid MVP measures 4.8 cm. Cavum vergae is noted on today's exam, which is a normal variant. Recommendations Please see [facility] recommendations from prior clinical and/or ultrasoundreport documentation. anatomic survey is incomplete due to late gestational age andsuboptimal visualization. Patient is not scheduled to return for additional ultrasound. Pleasereschedule for specific concerns or indications. The patient states medical induction of labor is schedule for 11/09/25. Subsequent follow up or other follow up as clinically determined byprimary OB provider unless otherwise specified by [facility]. Results forwarded to ordering provider so they can follow up with thepatient as necessary. Authorizing ProviderResult TypeResult StatusJean Carlos Denise MDYomaira ORDERABLES Final Result * 2nd hr Glucose Tolerance 100 gm load (08/15/2025)ComponentValueRef RangeTest MethodAnalysis TimePerformed AtPathologist SignatureGlucose Tolerance Test 2 [id number] TRANSCRIBED RESULTSSpecimen (Source)Anatomical Location / LateralityCollection Method / VolumeCollection TimeReceived TimeBloodVenous blood / Unknown Narrative Authorizing ProviderResult TypeResult StatusNot In System Ref OfferLoungeLAB BLOOD ORDERABLESFinal ResultPerforming OrganizationAddressCity/State/ZIP CodePhone Number MANUALLY TRANSCRIBED RESULTS * Glucose tolerance, 1 hour (08/15/2025)ComponentValueRef RangeTest Method Analysis TimePerformed AtPathologist SignatureGlucose Tolerance Test 1 Xueb020 MANUALLY TRANSCRIBED RESULTSSpecimen (Source)Anatomical Location / Laterality Collection Method / VolumeCollection TimeReceived TimeBloodVenous blood / Unknown Narrative Authorizing ProviderResult TypeResult StatusNot In System Ref OfferLoungeLAB BLOOD ORDERABLESFinal ResultPerforming OrganizationAddressCity/State/ZIP CodePhone Number MANUALLY TRANSCRIBED RESULTS * Glucose tolerance, 3 hours (08/15/2025)ComponentValueRef RangeTest Method Analysis TimePerformed AtPathologist SignatureGlucose Tolerance Test 3 Uxdr001 MANUALLY TRANSCRIBED RESULTSSpecimen (Source)Anatomical Location / Laterality Collection Method / VolumeCollection TimeReceived TimeBloodVenous blood / Unknown Narrative Authorizing ProviderResult TypeResult StatusNot In System Ref ProvLAB BLOOD ORDERABLESFinal ResultPerforming OrganizationAddressCity/State/ZIP CodePhone Number MANUALLY TRANSCRIBED RESULTS * Glucose, tolerance fasting (08/15/2025)ComponentValueRef RangeTest Method Analysis TimePerformed AtPathologist SignatureGlucose Tolerance Test Vlwniqp95 MANUALLY TRANSCRIBED RESULTSSpecimen (Source)Anatomical Location / Laterality [...] TimePerformed AtPathologist SignatureGlucose, 1 hr PP 50GM xims955 MANUALLY TRANSCRIBED RESULTSSpecimen (Source)Anatomical Location / Laterality Collection Method / VolumeCollection TimeReceived TimeBloodVenous blood / Unknown Narrative Authorizing ProviderResult TypeResult StatusNot In System Ref ProvLAB BLOOD ORDERABLESFinal ResultPerforming OrganizationAddressCity/State/ZIP CodePhone Number MANUALLY TRANSCRIBED RESULTS from Last 3 Months Insurance Care Teams Team MemberRelationshipSpecialtyStart DateEnd Date Cruz Rodríguez MD [address] [place] [address] [facility]12/02/18
--- OUTSIDE RECORDS SUMMARY | 2025-10-29 12:11 | XMS_ITS | Encounter Summary ---
Author Organization [facility] Address [address] [place] [place] [address] Care Team Providers Care Surface Water Manager Name Role Phone Eliceo Beltran DO Primary Care Provider [phone] CharlottecarolEliceo Unavailable [phone] Encounter Details DateTypeDepartmentCare Team (Latest Contact Info)Sjpwkggyswd45/04/2025amboo flowsheet [facility] [place] [facility] [address] [place] [address] Nathan Pop DO [address] [place], [facility] Social History Tobacco UseTypesPacks/DayYears UsedDateSmoking Tobacco: NeverSmokeless Tobacco: NeverAlcohol UseStandard Drinks/WeekCommentsNever0 (1 standard drink = 0.6 oz pure alcohol)caffeine: 1-2 cups per day, coffee and gnpR9204 Health Literacy AnswerDate RecordedHow often do you [...] week12/29/2024How often do you attend quaker or gnosticism services?Patient qwnybrsp06/03/2025Do you belong to any clubs or organizations such as quaker groups, unions, [employer] or athletic leodan ups, or school groups?No12/29/2024How often do you attend meetings of the clubs or organizations you belong to?Patient abnuquez45/03/2025re you , , , , never , [...] hard at all12/29/2024PHQ-2AnswerDate RecordedPatient Health Questionnaire-2 Score0 07/30/2025[facility] - Occupational Stress QuestionnaireAnswerDate RecordedDo you feel stress - tense, restless, nervous, or anxious, or unable to sleep at night because yourmind is troubled all the time - these days?Only a asltyn3912/29/2024Exercise Vital SignAnswerDate Recorded On average, how many [...] the highest degree you have received?High school dxmtpirf96/29/2023 Estimated Date of PgwoyqboQziexjlbKhm04/03/2026ased on last menstrual period of 02/21/2025Sex and Gender InformationValueDate RecordedSex Assigned at BirthNot on fileLegal UedBdliwq47/15/2023 7:18 PM EDTGender IdentityNot on file Sexual OrientationNot on 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 Not on fileNot on fileNot on filedocumented as of this encounter Plan of Treatment DateTypeDepartmentCare Team (Latest Contact Info)Ehpsarboptf47/10/2025 2:10 PM ESTRoutine [facility] [address] [place] [address] Nathan Pop DO [address] [place] [address] documented as of this encounter Visit Diagnoses Not on filedocumented in this encounter Care Teams Team MemberRelationshipSpecialtyStart DateEnd Date Eliceo Beltran DO [address] [address] PCP - GeneralFamily Medicine02/14/24 Eliceo Beltran DO [address] [place] [address] PCP - Medical [employer]07/27/2412documented as of this encounter
--- OUTSIDE RECORDS SUMMARY | 2025-10-29 12:11 | XMS_ITS | Encounter Summary ---
Author Organization [facility] Address [address] [place] [address] Care Team Providers Care Bottle Tester Name Role Phone NirajEliceo kauffman Primary Care Provider [phone] Charlottecarol Eliceo Hurtado DO Unavailable [phone] Encounter Details DateTypeDepartmentCare Team (Latest Contact Info)Rgxlkbdfurl48/21/2025External Result Encounter [facility] External Department Unsolicited Nathan Pop DO [address] [facility] [place] [address] Social History Tobacco UseTypesPacks/DayYears UsedDateSmoking Tobacco: NeverSmokeless Tobacco: NeverAlcohol UseStandard Drinks/WeekCommentsNever0 (1 standard drink = 0.6 oz pure alcohol)caffeine: 1-2 cups per day, coffee and [id number] Health Literacy AnswerDate RecordedHow often do you [...] week12/29/2024How often do you attend mormon or bahai services?Patient /03/2025Do you belong to any clubs or organizations such as mormon groups, unions, [employer] or athletic leodan ups, or school groups?No12/29/2024How often do you attend meetings of the clubs or organizations you belong to?Patient tvwlqyzb63/03/2025re you , , , , never , [...] Health Questionnaire-2 Score0 07/30/2025[facility] [place] of Occup[facility] Health - Occupational Stress QuestionnaireAnswerDate RecordedDo you feel stress - tense, restless, nervous, or anxious, or unable to sleep at night because yourmind is troubled all the time - these days?Only a fsegml7612/29/2024Exercise Vital SignAnswerDate Recorded On average, how many [...] steady place to sleep or slept in [facility] (including now)?No09/19/2023Housing Stability Vital SignAnswerDate [...] the highest degree you have received?High school vemcjdtk35/29/2023 Estimated Date of VrosdxdyRcnaljmrIbb52/03/2026ased on last menstrual period of 02/21/2025Sex and Gender InformationValueDate RecordedSex Assigned at BirthNot on fileLegal OdzHrisre32/15/2023 7:18 PM EDTGender IdentityNot on file Sexual OrientationNot on 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 Not on fileNot on fileNot on filedocumented as of this encounter Plan of Treatment DateTypeDepartmentCare Team (Latest Contact Info)Mhfyqlkdeum21/10/2025 2:10 PM ESTRoutine [facility] [place] [facility] [address] [address] [address] Nathan Pop DO [address] [facility] [address] [place] [address] documented as of this encounter Procedures Procedure NamePriorityDate/TimeAssociated DiagnosisCommentsCULTURE, URINE, IIWMOFSGEWU62/21/2025 1:30 PM EST documented in this encounter Results * Urine culture (10/16/2025 1:30 PM EST)ComponentValueRef RangeTest Method Analysis TimePerformed AtPathologist SignatureEASTERN [facility] NOTE?20,000 colonies/ml mixed ?bacterial skin contaminants ?2 Days 10/18/2025 10:10 AM [facility] CtrSpec[facility] (Source)Anatomical Location / LateralityCollection Method / VolumeCollection TimeReceived Time Clean-Voided Midstream (Clean Void Midstream)10/16/2025 1:30 PM EST10/16/2025 4:19 PM EST Narrative [facility] - 10/18/2025 10:10 AM EST Diagnosis: HIGH BLOOD PRESSURE Comment: Authorizing ProviderResult TypeResult StatusCorey Kiesha DOLAB MICROBIOLOGY - GENERAL ORDERABLESFinal ResultPerforming OrganizationAddressCity/State/ZIP Code Phone Number [facility] [address] [address], [facility] [address] [facility] [place] [address] documented in this encounter Visit Diagnoses Not on filedocumented in this encounter Care Teams Team MemberRelationshipSpecialtyStart DateEnd Date Eliceo Beltran DO [address] [place] [address] PCP - GeneralFamily Medicine02/14/24 Eliceo Beltran DO [address] [place] [address] PCP - Medical [facility] [place] [employer]07/27/2412documented as of this encounter
--- OUTSIDE RECORDS SUMMARY | 2025-10-29 12:11 | XMS_ITS | Encounter Summary ---
Author Organization [facility] Address [address] [place] [address] Care Team Providers Care Mail Handler Name Role Phone Eliceo Beltran Primary Care Provider [phone] CharlottegeovaniEliceo kauffman Unavailable [phone] Encounter Details DateTypeDepartmentCare Team (Latest Contact Info)Wtztansrgct39/29/2025Clinisync Result Encounter [facility] External Department Unsolicited Steph Keane, DEVYN [address] [facility] [place] [address] Social History Tobacco UseTypesPacks/DayYears UsedDateSmoking Tobacco: NeverSmokeless Tobacco: NeverAlcohol UseStandard Drinks/WeekCommentsNever0 (1 standard drink = 0.6 oz pure alcohol)caffeine: 1-2 cups per day, coffee and [id number] Health Literacy AnswerDate RecordedHow often do you [...] week12/29/2024How often do you attend methodist or muslim services?Patient xgvlkifx16/03/2025Do you belong to any clubs or organizations such as methodist groups, unions, [employer] or athletic leodan ups, or school groups?No12/29/2024How often do you attend meetings of the clubs or organizations you belong to?Patient dljhlsau41/03/2025re you , , , , never , [...] RecordedPatient Health Questionnaire-2 Score0 07/30/2025[facility] [place] of Occupational Health - Occupational Stress QuestionnaireAnswerDate RecordedDo you feel stress - tense, restless, nervous, or anxious, or unable to sleep at night because yourmind is troubled all the time - these days?Only a izdhlf6412/29/2024Exercise Vital SignAnswerDate Recorded On average, how many [...] have received?High school /29/2023 Estimated Date of OilgyadxWyszgagnTtv40/03/2026ased on last menstrual period of 02/21/2025Sex and Gender InformationValueDate RecordedSex Assigned at BirthNot on fileLegal HubAcwtkr43/15/2023 7:18 PM EDTGender IdentityNot on file Sexual OrientationNot on 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 Not on fileNot on fileNot on filedocumented as of this encounter Plan of Treatment DateTypeDepartmentCare Team (Latest Contact Info)Wntgvhlhurd49/10/2025 2:10 PM ESTRoutine [facility] [place] [facility] [address] [place] [id number] Nathan Pop, DO [address] [facility] [place] [address] documented as of this encounter Procedures Procedure NamePriorityDate/TimeAssociated DiagnosisCommentsUS OB BPP W NON-CDGMVZ5810/24/2025 10:38 AM EST documented in this encounter Results * US OB BPP W NON-STRESS (10/24/2025 10:38 AM EST)Anatomical Region LateralityModalityOtherSpecimen (Source)Anatomical Location / Laterality Collection Method / VolumeCollection TimeReceived Time10/24/2025 10:38 AM EST Narrative 10/24/2025 10:40 AM EST [facility] ?[address] ? [place] [address] ? Ultrasound Report ? Signed ? Patient: DRISS GAMA ?MR#: [id number] ?? : 1995 ?Acct:[id number] ?? Age/Sex: 30 / F ?ADM Date: 10/24/25 ?? Loc: [facility] ??250-1 ? Attending Dr: Steph Keane ? Ordering Physician: Steph Keane ?? Date of Service: 10/24/25 ?? Procedure(s): US OB BPP w non-stress ?? Accession Number(s): [id number] ? cc: Steph Keane; Yomaira BELTRAN ? [facility] ? [address] ? [place] [address] ? Patient Name: ?? DRISS Sanchez JAYY ? MRN: [id number] ? date: 1995 ?Sex: F ?? Assigned Patient Location: US ?? Current Patient Location: US ?? Accession/Order Number: [id number] ?? Exam Date: 10/24/2025 ??10:08 ?Report Date: [...] M.D. ??10/24/2025 10:38 AM ? Dictation Location: [facility]17 ? Electronically authenticated by: [id number] ??Y ?? Date: 10/24/2025 ??10:38 ? Dictated By: ?Will Faria M.D. ? Signed By: ?10/24/25 1040 ? DD/ 1038 ? TD/TT: ? Atm Mechanic: Procedure Note Radiology, Radiologist, MD - 10/24/2025 [place] [address] Ultrasound Report Signed Patient: DRISS GAMA [facility]#: [id number] : 1995Acct:[id number] Age/Sex: 30 / FADM Date: 10/24/25 Loc: [facility] 250-[address]: Steph Keane Ordering Physician: Steph Keane Date of Service: 10/24/25 Procedure(s): US OB BPP w non-stress Accession Number(s): [id number] cc: Steph Keane; Yomaira BELTRAN The [address] [address] Patient Name: DRISS GAMA MRN: [id number] date: 1995 Sex: F Assigned Patient Location: Current Patient Location: Accession/Order Number: [id number] Exam Date: 10/24/2025 10:08 Report Date: 10/24/2025 [...] Faria M.D. 10/24/2025 10:38 AM Dictation Location: [place] [address] Electronically authenticated by: [id number] Y Date: 0:38 Dictated By: Will Faria M.D. Signed By:10/24/25 1040 DD/ 1038 TD/TT: Atm Mechanic: Authorizing ProviderResult TypeResult StatusSteph Keane NPCLINISYNC IMAGING Final Result documented in this encounter Visit Diagnoses Not on filedocumented in this encounter Care Teams Team MemberRelationshipSpecialtyStart DateEnd Date Eliceo Beltran DO [address] [place] [address] [facility] - [facility]24 Eliceo Beltran DO [address] [place] [address] PCP - Medical [place] [employer]07/27/2412documented as of this encounter
--- OUTSIDE RECORDS SUMMARY | 2025-10-29 12:11 | XMS_ITS | Encounter Summary ---
Author Organization [facility] Address [address] [place] [address] Care Team Providers Care Waterworks Supervisor Name Role Phone NirajEliceo kauffman Primary Care Provider RubyEliceo Bryant DAY Unavailable [phone] Encounter Details DateTypeDepartmentCare Team (Latest Contact Info)Wepfjghasxf64/01/2025Telephone [facility] [place] [facility] [address] [place] [address] [place] [address] Rossy Davila MA Social History Tobacco UseTypesPacks/DayYears UsedDateSmoking Tobacco: NeverSmokeless Tobacco: NeverAlcohol UseStandard Drinks/WeekCommentsNever0 (1 standard drink = 0.6 oz pure alcohol)caffeine: 1-2 cups per day, coffee and [id number] Health Literacy AnswerDate RecordedHow often do you [...] relatives?Once a week12/29/2024How often do you attend nondenominational or caodaism services?Patient ytmegyma12/03/2025Do you belong to any clubs or organizations such as nondenominational groups, unions, fraSportgenic or athletic leodan ups, or school groups?No12/29/2024How often do you attend meetings of the clubs or organizations you belong to?Patient ccnhojgt61/03/2025re you , , , , never , [...] Questionnaire-2 Score0 07/30/2025[facility] [place] of Occupational Health - Occupational Stress QuestionnaireAnswerDate RecordedDo you feel stress - tense, restless, nervous, or anxious, or unable to sleep at night because yourmind is troubled all the time - these days?Only a eilebp9912/29/2024Exercise Vital SignAnswerDate Recorded On average, how many [...] the highest degree you have received?High school obmatwws09/29/2023 Estimated Date of XuozyimsWpjvzgqvMjt62/03/2026ased on last menstrual period of 02/21/2025Sex and Gender InformationValueDate RecordedSex Assigned at BirthNot on fileLegal LvfSiktjp84/15/2023 7:18 PM EDTGender IdentityNot on file Sexual OrientationNot on 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 Medication sent documented in this encounter Plan of Treatment DateTypeDepartmentCare Team (Latest Contact Info)Umovxqykirv35/10/2025 2:10 PM ESTRoutine [facility] [place] [facility] [address] [place] [address] Nathan [place] DO [address] [facility] [address] [place] [address] documented as of this encounter Visit Diagnoses Diagnosis Hypertension affecting , antepartum ([facility]) documented in this encounter Care Teams Team MemberRelationshipSpecialtyStart DateEnd Date Eliceo Beltran DO [address] [place] [address] PCP - GeneralFamily Medicine02/14/24 Eliceo Beltran DO [address] [place] [address] PCP - Medical [place] [employer]07/27/2412documented as of this encounter
--- OUTSIDE RECORDS SUMMARY | 2025-10-29 12:11 | XMS_ITS | Encounter Summary ---
Author Organization [facility] Address [address] [place] [address] Care Team Providers Care Centrifugal Spinner Name Role Phone NirajEliceo kauffman Primary Care Provider [phone] CharlottecarolEliceo Bryant DAY Unavailable [phone] Encounter Details DateTypeDepartmentCare Team (Latest Contact Info)Sizgcgcsxnf57/21/2025Clinisync Result Encounter [facility] External Department Unsolicited Nathan [place] DO [address] [place] [address] Social History Tobacco UseTypesPacks/DayYears UsedDateSmoking Tobacco: NeverSmokeless Tobacco: NeverAlcohol UseStandard Drinks/WeekCommentsNever0 (1 standard drink = 0.6 oz pure alcohol)caffeine: 1-2 cups per day, coffee and [id number] Health Literacy AnswerDate RecordedHow often do you [...] week12/29/2024How often do you attend cheondoism or scientology services?Patient evskxjoz90/03/2025Do you belong to any clubs or organizations such as cheondoism groups, unions, [employer] or athletic leodan ups, or school groups?No12/29/2024How often do you attend meetings of the clubs or organizations you belong to?Patient aqvvchuh71/03/2025re you , , , , never , [...] at all12/29/2024PHQ-2AnswerDate RecordedPatient Health Questionnaire-2 Score0 07/30/2025[facility] [place] of Occupational Health - Occupational Stress QuestionnaireAnswerDate RecordedDo you feel stress - tense, restless, nervous, or anxious, or unable to sleep at night because yourmind is troubled all the time - these days?Only a rcfkhs8712/29/2024Exercise Vital SignAnswerDate Recorded On average, how many [...] the highest degree you have received?High school zszmsujm61/29/2023 Estimated Date of NjryoumjDskgadfzIss65/03/2026ased on last menstrual period of 02/21/2025Sex and Gender InformationValueDate RecordedSex Assigned at BirthNot on fileLegal WkbKkzodf20/15/2023 7:18 PM EDTGender IdentityNot on file Sexual OrientationNot on 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.] CLINISYNC [facility] * (ABNORMAL) [facility] UA (CLEAN/CATCH) GYNAECOLOGICAL ONCOLOGIST/MICRO IF IND. (10/16/2025 1:30 PM EST) ComponentValueRef [...] DOCLINISYNCFinal Result Performing OrganizationAddressCity/State/ZIP CodePhone Number [facility] documented in this encounter Visit Diagnoses Not on filedocumented in this encounter Care Teams Team MemberRelationshipSpecialtyStart DateEnd Date Eliceo Beltran DO [address] [place] [address] PCP - GeneralFami Medicine02/14/24 Eliceo Beltran DO [address] [place] [address] PCP - Medical [place] [employer]07/27/2412documented as of this encounter
--- OUTSIDE RECORDS SUMMARY | 2025-10-29 12:11 | XMS_ITS | Encounter Summary ---
Author Organization [facility] tem Address [facility] [address] [place] [address] Care Team Providers Care Tumbler Dyeing Machine Operator Name Role Phone Cruz Rodríguez MD Primary Care Provider [phone] Encounter Details DateTypeDepartmentCare Team (Latest Contact Info)Vswusrbzwmy65/25/2025Orders Only Maternal- Medicine at [facility] [address] [place] [address] Kayleigh Rizzo, PAAlbinC [address] [address] Essential hypertension affecting in third trimester Social [...] or more drinks on one occasion?Never5ChildcareAnswer Date OnwooilaMrgtvmhhcJpckfsl16/13/2019EmploymentAnswerDate RecordedEmployment Bhelvxp7205/08/2019Hunger ScreeningAnswerDate RecordedWithin the past 12 months we worried whether our food would run out before we got money to buy more.Never True09/10/2025Within the past 12 months the food we bought just didn't last and we didn't have money to get more.Never True09/10/2025Purpose - LifeAnswerDate RecordedPurpose and direction in xjzcOmcnmty77/11/2021Estimated Date of GhnyrbrxEcwiqqplXqh53/03/2026Based on last menstrual period of 02/21/2025 (Exact Date)Sex and Gender InformationValueDate RecordedSex Assigned at BirthNot on fileLegal DkuKjjdos51/07/2019 2:55 PM ESTGender IdentityNot on fileSexual OrientationNot on filedocumented as of this encounter Plan of Treatment DateTypeDepartmentCare Team (Latest Contact Info)Bvncsvnwtsy61/09/2025 2:30 PM ESTOffice Visit Maternal- Medicine at [facility] [address] [place] [address] Kayleigh Rizzo PA-C [address] [address] documented as of this encounter Visit Diagnoses Diagnosis Essential hypertension affecting in third trimester documented in this encounter Care Teams Team MemberRelationshipSpecialtyStart DateEnd Date Cruz Rodríguez MD [address] [place] [address] PCP - GeneralFamily Medicine12/02/18documented as of this encounter
--- OUTSIDE RECORDS SUMMARY | 2025-10-29 12:11 | XMS_ITS | Clinical Summary ---
Author Organization [facility] Address [address] [place] [address] Care Team Providers Care Carpenter Form Name Role Phone Eliceo Beltran DO Primary Care Provider [phone] Eliceo Beltran DO Unavailable [phone] Allergies No known active allergies Medications MedicationSigDispense QuantityRefillsLast FilledStart DateEnd DateStatus metoprolol succinate XL (Toprol-XL) 25 MG 24 hr tablet Indications:Hypertension, unspecified typeTake 1 tablet by mouth daily 90 tablet 5Active Vit-Fe Fumarate-FA ( Vitamins) 28-0.8 MG tablet Indications:, unspecified gestational age ([facility]),Encounter for supervision of normal first in first trimester ([facility])Take 1 tablet by mouth Daily 30 tablet 110/6Active Alcohol Swabs (Alcohol Prep Pad) 70 % pads Indications:Gestational diabetes mellitus (GDM), antepartum, gestational diabetes method of control unspecified([facility]),Elevated glucose tolerance test Apply 1 Pad topically Daily Use four times daily to check FSBS. 150 each 5Active Blood Glucose Monitoring Suppl (D-Care Glucometer) w/Device kit Indications:Gestational diabetes mellitus (GDM), antepartum, gestational diabetes method of control unspecified([facility]),Elevated glucose tolerance test1 kit Daily Use four times daily to check FSBS. In the morning prior to breakfast & 1 hour after each meal for a total of 4times daily. 1 kit 506Active insulin glargine-yfgn (Semglee-yfgn) 100 UNIT/ML pen Inject 13 Units under the skin at ncltzsm3609/15/2025tive labetalol (Normodyne) 200 MG tablet Indications:Gestational HypertensionTake [...] 60 tablet Discontinued(Reorder) Active Problems ProblemNoted DateDiagnosed DateH/O pre-eclampsia in prior , currently ([facility])10/29/2025H/O premature gisaelqq89 weeks gestation of ([facility])10/14/2025Third trimester ([facility])10/14/2025 Gntzcnhf28/29/8692Veudjlykqls41/26/2024Obesity (BMI 30-39.9)02/19/2024cquired equinus deformity of foot03/29/2023isplacement of cervical intervertebral disc without uczjyxsowz73/04/3547Cbgwaylrcnmu84/04/7218Xxnnlcfnesshc00/04/2023 Fpvdlvthiscmr06/04/3288Muwhpomhrqef74/04/2023 Assessment & Plan (07/30/2025 4:00 PM EDT): Record Blood Pressures 2-4 times weekly and record. Return with readings at next appointment. Call with readings if sees significant changes Intractable migraine without aura and with status tkimgzciuam92/04/2023Migraines 03/29/2023hronic pelvic pain in ntzhme5303/29/2023ain in female genitalia on xkeztzurlil16/04/2023ain on yqpkwcrzsy29/04/2023anic upbmqqoz54/04/2023 Patellofemoral disorders, left knee03/29/2023atellofemoral disorders, right knee03/29/2023osterior calcaneal ehtzefihf14/04/2023Scapular dyskinesis 03/29/20231179Qwmzbhvkn93/04/2023Seasonal allergic rhinitis due to xmplil8203/29/2023 Tachycardia, gxawbuvgnl90/04/2023Tension ijbdqdyr89/04/2023Vitamin B12 premlnhbde58/04/2023Vitamin D cgabzuabpi86/04/2023hronic right shoulder pain 03/29/2023Estimated Date of PcewxwkmSybnjmxeUfr42/03/2026ased on last menstrual period of 02/21/2025 Encounters DateTypeDepartmentCare XmuwKygnlghvqwr69/04/2025 9:00 [place] [phone] Nathan Pop, DO Third trimester ([facility]); 35 weeks gestation of ([facility]); H/O pre-eclampsia in prior , currently ([facility]); H/O premature /04/2025amboo flowsheet [facility] [place] [address] [address] [place] [address] Nathan Pop, DO 10/26/2025Telephone [facility] [place] [address] [address] [place] [address] Rosys Davila MA 10/25/20251214Iyeodz88/29/2025linisync Result Encounter [facility]OM[facility] External Department Unsolicited Steph Keane NP 10/17/2025linisync Result Encounter NOMS External Department Unsolicited Steph Keane NP 10/16/2025External Result Encounter NOMS External Department Unsolicited Nathan Pop, DO 10/16/2025linisync Result Encounter NOMS External Department Unsolicited Nathan Pop, DO 10/14/2025 3:30 PM ESTRoutine [facility] [place] [address] [place] [address] Nathan Pop, DO 33 weeks gestation of ([facility]); Third trimester ([facility])5Bamboo flowsheet [facility] [address] [place] [address] Nathan Pop, DO 10/13/20256364Fbxsxn10/17/2025linisync Result Encounter NOMS External Department Unsolicited Nathan Pop, DO 10/11/2025linisync Result Encounter NOMS External Department Unsolicited Nathan Pop, DO 10/09/2025bstract [facility] [address] [place] [phone] Nathan Pop, DO 10/03/2025linisync Result Encounter NOMS External Department Unsolicited Stehp Keane, DEVYN 10/01/2025Telephone [facility] [address] [place] [address] Nathan Pop, DO 09/30/2025 3:00 PM ESTRoutine [facility] [place] [facility] [address] [place] [address] Nathan Pop, DO Third trimester ([facility]); 31 weeks gestation of ([facility]); Pre-eclampsia in third trimester ([facility])09/30/2025amboo flowsheet [facility] [place] [facility] [address] [place] [phone] Nathan Pop, DO 5Clinisync Result Encounter NOMS External Department Unsolicited Steph Keane, DEVYN 09/23/20251693Heyrdk28/25/2025Clinisync Result Encounter NOMS External Department Unsolicited Steph Keane NP 09/16/2025 3:20 PM EDTRoutine [facility] [place] [facility] [address] [place] [phone] Nathan Pop, DO 29 weeks gestation of ([facility]); Third trimester ([facility]); Hypertension affecting , antepartum ([facility]); Gestational diabetes mellitus (GDM), antepartum, gestational diabetes method of control unspecified([facility])09/16/2025amboo flowsheet [facility] [address] [place] [address] Nathan Pop, DO 09/11/2025bstract [facility] [address] [place] [address] Nathan Pop, DO 09/09/20254236Fqjbcm31/09/2025 3:50 PM EDTRoutine [facility] [place] [facility] [address] [place] [address] Steph Keane NP Hypertension affecting , antepartum ([facility]) (Primary Dx); 27 weeks gestation of ([facility]); Second trimester ([facility])09/03/2025linisync Result Encounter NOMS External Department Unsolicited Nathan Pop, DO 09/03/2025amb flowsheet [facility] [place] [facility] [address] [place] [address] Steph Keane NP 09/02/20250168Ydnvun55/04/2025linisync Result Encounter NOMS External Department Unsolicited Steph Keane NP 08/28/2025bstract [facility] [address] [place] [address] Eliceo Beltran DO 08/28/2025Telephone [facility] [place] [facility] [address] [place] [address] Radha Rahman MA 08/27/2025 3:20 PM EDTRoutine [facility] [address] [place] [address] Steph Keane NP 26 weeks gestation of ([facility]); Second trimester ([facility]); induced hypertension, antepartum ([facility]); Gestational diabetes mellitus (GDM) in second trimester, gestational diabetes method of control unspecified ([facility])08/27/2025linisync Result Encounter [facility]OM[facility] External Department Unsolicited Steph Keane NP 08/27/2025linisync Result Encounter NOM[facility] External Department Unsolicited Steph Keane, DETAIL ASSEMBLER 08/27/2025amboo flowsheet [facility] [address] [place] [phone] Steph Keane, DETAIL ASSEMBLER 08/25/2025linisync Result Encounter NOM[facility] External Department Unsolicited Provider, Generic External Data 08/20/2025bstract [facility] [address] [place] [address] Nathan Pop, DO 08/20/2025Telephone [facility] [address] [place] [address] Steph Keane, DETAIL ASSEMBLER 08/17/2025bstract [facility] [address] [place] [address] Eliceo Beltran, DO 08/17/2025bstract [facility] [address] [place] [phone] Eliceo Beltran, DO 08/17/2025Telephone [facility] [place] [facility] [address] [place] [address] Nathan Pop, DO 08/13/2025bstract [facility] [place] [facility] [address] [place] [address] Nathan Pop, DO 08/12/2025 2:40 PM EDTRoutine [facility] [address] [place] [address] Nathan Pop, DO 24 weeks gestation of ([facility]); Second trimester ([facility]); Elevated glucose tolerance test08/12/2025 2:00 PM EDTAncillary Procedure [facility] [place] [facility] [address] [place] [address] Encounter for follow-up ultrasound of anatomy ([facility])08/12/2025bstract [facility] [place] [facility] [address] [place] [address] Nathan Pop, DO 08/12/2025bstract [facility] [place] [facility] [address] [place] [address] Nathan Pop, DO 08/12/2025Telephone [facility] [address] [place] [address] Bill Gould LPN Qfekqsa2508/12/2025bstract [facility] [address] [place] [address] Eliceo Beltran, DO 08/04/2025bstract [facility] [address] [place] [address] Nathan Pop, DO 08/04/2025Telephone [facility] [address] [place] [address] Bill Gould LPN Wiwublq4707/30/2025 3:40 PM EDTOffice Visit [facility] [address] [place] [phone] Eliceo Beltran, DO Wellness examination (Primary Dx); Hypertension, unspecified type ; Lipid /04/2025amboo flowsheet [facility] [address] [place] [address] Eliceo Beltran, DO 07/30/2025Travelfrom Last 3 Months Immunizations ImmunizationAdministration DatesNext DueDTP / HiB08/01/1996,1995, 1995DTaP, Dhzftgcyrfd22/08/2000,12/29/1997HPV, Smreozshcibu63/17/2014, 05/04/2014,2014Hep A, Adult09/11/2014,2014Hep B, Adolescent or Ccqkqaydj11/06/1996,1995,1995IPV05/03/2000Influenza, seasonal, injectable, preservative free09/11/2014MMR05/03/2000,08/01/1996Meningococcal ZTN9T2504/03/2007OPV08/01/1996,1995,1995Tdap2014 Family History Medical HistoryRelationNameCommentsAnemiaFatherColon cancerFatherCancerMaternal GrandfatherbutchHypertensionMaternal GrandfatherbutchBreast cancerMaternal GrandmotherHypertensionMotherdarleneColon cancerPaternal GrandfatherRelationName StatusCommentsFatherDeceasedMaternal GrandfatherbutchMaternal GrandmotherMother darleneAlivePaternal GrandfatherPaternal GrandmotherAlive Social History Tobacco UseTypesPacks/DayYears UsedDateSmoking Tobacco: NeverSmokeless Tobacco: Never Tobacco Cessation:Counseling Given: Not Answered Alcohol UseStandard Drinks/WeekCommentsNever0 (1 standard drink = 0.6 oz pure alcohol)caffeine: 1-2 cups per day, coffee and mpyO8513 Health LiteracyAnswer Date RecordedHow often do you [...] week12/29/2024How often do you attend rastafari or congregational services?Patient fxcywwsx69/03/2025Do you belong to any clubs or organizations such as rastafari groups, unions, [employer] or athletic leodan ups, or school groups?No12/29/2024How often do you attend meetings of the clubs or organizations you belong to?Patient ojylyvxk51/03/2025re you , , , , never , [...] Health Questionnaire-2 Score0 07/30/2025[facility] [place] [facility] Occup[facility] - Occupational Stress QuestionnaireAnswerDate RecordedDo you feel stress - tense, restless, nervous, or anxious, or unable to sleep at night because yourmind is troubled all the time - these days?Only a icmemt5412/29/2024Exercise Vital SignAnswerDate Recorded On average, how many [...] steady place to sleep or slept in [facility] (including now)?No09/19/2023Housing Stability Vital [...] the highest degree you have received?High school clinhore88/29/2023 Estimated Date of DptpofoiXywgptsjPgn44/03/2026ased on last menstrual period of 02/21/2025Sex and Gender InformationValueDate RecordedSex Assigned at BirthNot on fileLegal AmeAskeai55/15/2023 7:18 PM EDTGender IdentityNot on file Sexual OrientationNot on 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 Not on fileNot on fileNot on file Last Filed Vital Signs Vital SignReadingTime TakenCommentsBlood Lmxrztwq898/8210/29/2025 9:33 AM EST Bniex522107/30/2025 3:36 PM TXJMjnoimnnnqo93.2 ??C (97.1 ??F)07/30/2025 3:36 PM EDTRespiratory Jrai856712/23/2022 4:16 PM ESTOxygen Vnfylonmxq84%07/30/2025 3:36 PM EDTInhaled Oxygen Concentration--Xxiimr99.1 kg (170 lb)10/29/2025 9:33 AM EST Qakcro882.5 cm (5' 2 )07/30/2025 3:36 PM EDTBody Mass Index31.0907/30/2025 3:36 PM EDT Plan of Treatment DateTypeDepartmentCare Team (Latest Contact Info)Ukjifotkqdo21/10/2025 2:10 PM ESTRoutine [facility] [place] [facility] [address] [place] [address] Nathan Pop, [address] [place] [address] Health MaintenanceDue DateLast DoneCommentsCOVID-19 Vaccine (2024- season) 2025Influenza Vaccine (#1)Pap Smear08/18/2027 08/18/2024, 08/15/2023, 06/20/2022, Additional history existsCervical Cancer Hkfzzhjdu64/09/2028HPV/Gbgkfh03neumococcal Vaccine: Pediatrics (0 to 5 Years) and At-Risk Patients (6 to 64 Years)Aged OutNo longer eligible based on patient's age to complete this topic Procedures Procedure NamePriorityDate/TimeAssociated DiagnosisCommentsPOCT URINALYSIS GAZGNAKLZukkvwu14/04/2025 9:38 AM EST Third trimester ([facility]) US OB BPP W NON-FTQDAV5810/24/2025 10:38 AM EST US OB BPP W NON-FMSMMZ6010/17/2025 9:22 AM EST URINE CULTURE - UOEPKkturle68/21/2025 1:30 PM EST [facility] UA (CLEAN/CATCH) CHECK WRITER SALESPERSON/MICRO IF IND.Aanwaiy3510/16/2025 1:30 PM EST CULTURE, URINE, CDQOPUXPMWT04/21/2025 1:30 PM EST POCT URINALYSIS KGNLBSFLDpweumb77/19/2025 3:40 PM EST 33 weeks gestation of ([facility]) Third trimester ([facility]) CCF WYEGDgfokqq34/17/2025 8:28 PM EST SRMCOH PROTHROMBIN TIME INR W/O COJHNdugmth97/17/2025 8:28 PM EST ALL UGUOhdqnpn67/17/2025 8:28 PM EST C[facility] JNVMkzpqwl35/17/2025 8:28 PM EST CCF NYUOeutsrm85/17/2025 8:28 PM EST ALL URIC FSSAPscsfxz87/17/2025 8:28 PM EST TBH CQJUDHDIDWHdgokuy15/17/2025 8:28 PM EST ALL TITBojesas00/17/2025 8:28 PM EST ALL CBC WITH AUTO QRHCVlhftgq15/17/2025 8:28 PM EST [facility] URINE T PROTEIN CREAT XYUHUTtubxue52/17/2025 7:05 PM EST [facility] UA (CLEAN/CATCH) CHECK WRITER SALESPERSON/MICRO IF IND.Oynknsn6910/12/2025 7:05 PM EST US OB BPP W NON-FTLMXR0110/11/2025 1:46 PM EST US OB BPP W NON-SFNOAS8410/03/2025 11:36 AM EST POCT URINALYSIS KWVGZTRPHglshrz83/05/2025 3:13 PM EST Third trimester ([facility]) US OB BPP W NON-XNQLRH4609/26/2025 2:50 PM EDT US OB BPP W NON-EQJGMM6309/19/2025 12:17 PM EDT POCT URINALYSIS XTWGXZMZRtxkeid19/22/2025 4:09 PM EDT 29 weeks gestation of ([facility]) Third trimester ([facility]) ALL CBC WITH AUTO NTGUHswwevg19/09/2025 5:15 PM EDT MHPT EWWBYLBRFCOwrzgwf07/09/2025 5:15 PM EDT CCF FNXVTngibjl33/09/2025 5:15 PM EDT SRMCOH PROTHROMBIN TIME INR W/O IJVCQkfhvjj27/09/2025 5:15 PM EDT CCF HWKLifdjmu27/09/2025 5:15 PM EDT CCF MWZAdcbdkn81/09/2025 5:15 PM EDT ALL URIC FLTOTlgdwxs26/09/2025 5:15 PM EDT TBH DPKAZSIMYOHjpqcbb11/09/2025 5:15 PM EDT ALL YRINqldzmh32/07/2025 5:15 PM EDT TB[facility] URINE T PROTEIN CREAT WEYXUQexhdyy70/09/2025 5:05 PM EDT POCT URINALYSIS VOOYSPIKMkcnnfp04/09/2025 4:26 PM EDT 27 weeks gestation of ([facility]) TBH TOTAL PROTEIN 24 HOUR CORFWAtfbsiw47/04/2025 8:00 AM EDT US OB BPP W NON-ZYIWHQ0108/27/2025 6:02 PM EDT TBH URINE T PROTEIN CREAT ZOOCFCiixnoh83/02/2025 5:50 PM EDT CCF ROFUiinuxo58/02/2025 5:00 PM EDT CCF XCFGDvjajbw60/02/2025 5:00 PM EDT SRMCOH PROTHROMBIN TIME INR W/O DRAFEzzccmr36/02/2025 5:00 PM EDT ALL AJLHtngact99/02/2025 5:00 PM EDT CCF AYWDyizmom07/02/2025 5:00 PM EDT ALL URIC JKSRHwowrxc72/02/2025 5:00 PM EDT TBH MPXOFFWEHEAgwrjox38/02/2025 5:00 PM EDT ALL TEBMbmnnbc10/02/2025 5:00 PM EDT ALL CBC WITH AUTO GJUEXmewlmz61/02/2025 5:00 PM EDT POCT URINALYSIS FKQCVKJSNgtlzqg02/02/2025 3:53 PM EDT 26 weeks gestation of ([facility]) URINE CULTURE, XGOJPASBejxfdy71/30/2025 8:10 AM EDT POCT URINALYSIS VJKIXOPBIryshdl49/17/2025 2:39 PM EDT 24 weeks gestation of ([facility]) Second trimester ([facility]) US OB LIMITED 1+ LSHUQSNAsxmmdk97/17/2025 2:22 PM EDT Encounter for follow-up ultrasound of anatomy ([facility]) PAP ZQLJLCanlzwr45/23/2024 12:00 AM EDTTHINPREP PAP AND HPV MRNA E6/E7 W/RFL HPV 16,18/54Kjcdqcq62/09/2023 4:00 PM EDT Well woman exam with routine gynecological exam from Last 3 Months or Most Recently Relevant to Health Maintenance Results * (ABNORMAL) POCT urinalysis dipstick manually resulted (10/29/2025 9:38 AM EST) Only the most recent of7 resultswithin the time period is included. ComponentValueRef RangeTest MethodAnalysis TimePerformed AtPathologist Signature Color, UAYellowClarity, UAClearGlucose, UANegativeNegative - 2000(110) ++++ mg/dLBilirubin, UANegativeNegative - 4(70) +++ mg/dLKetones, UANegativeNegative - 160(16) ++++ mg/dLSpec Grav, UA1.0101 - 1.03Blood, UANegativeNegative - 50 Teodoro/mcLpH, UA6.05 - 9Protein, UANegativeNegative - 2000(20) ++++ mg/dL Urobilinogen, UA1.00.2 - 12 mg/dLLeukocytes, UA1+Negative - 500+++ Robinson/mcL Nitrite, UANegativeNegative - PositiveSpecimen (Source)Anatomical Location / LateralityCollection Method / VolumeCollection TimeReceived RgvnPvkuq81/04/2025 9:38 AM EST Narrative Authorizing ProviderResult TypeResult StatusCorey Kiesha DOPOINT OF CARE TEST ENTER/EDIT ORDERABLESFinal Result * US OB BPP W NON-STRESS (10/24/2025 10:38 AM EST) Only the most recent of7 resultswithin the time period is included. Anatomical RegionLateralityModalityOtherSpecimen (Source)Anatomical Location / LateralityCollection Method / VolumeCollection TimeReceived Time10/24/2025 10:38 AM EST Narrative 10/24/2025 10:40 AM EST [facility] ?[address] ? [place] [address] ? Ultrasound Report ? Signed ? Patient: MCCONEGLY,DRISS M ?MR#: [id number] ?? : 1995 ?Acct:[id number] ?? Age/Sex: 30 / F ?ADM Date: 10/24/25 ?? Loc: [facility] ??250-1 ? Attending Dr: Steph Keane ? Ordering Physician: Steph Keane ?? Date of Service: 10/24/25 ?? Procedure(s): US OB BPP w non-stress ?? Accession Number(s): [id number] ? cc: Steph Keane; Yomaira BELTRAN ? [facility] ? [address] ? [place] [address] ? Patient Name: ?? DRISS Sanchez JAYY ? MRN: [facility]:[id number] ? date: 1995 ?Sex: F ?? Assigned Patient Location: [place] ?? Current Patient Location: US ?? Accession/Order Number: [id number] ?? Exam Date: 10/24/2025 ??10:08 ?Report Date: [...] M.D. ??10/24/2025 10:38 AM ? Dictation Location: [facility]-PC-17 ? Electronically authenticated by: [id number] ??Y ?? Date: 10/24/2025 ??10:38 ? Dictated By: ?Will Faria M.D. ? Signed By: ?10/24/25 1040 ? DD/ 1038 ? TD/TT: ? Ex Assistant/Program Director: Procedure Note Radiology, Radiologist, MD - 10/24/2025 [place] [address] Ultrasound Report Signed Patient: DRISS GAMA MMR#: [id number] : 1995Acct:[id number] Age/Sex: 30 / FADM Date: 10/24/25 Loc: [facility] 250-[address]: Steph Keane Ordering Physician: Steph Keane Date of Service: 10/24/25 Procedure(s): US OB BPP w non-stress Accession Number(s): [id number] cc: Steph Keane; Yomaira BELTRAN [place] [id number] Patient Name: DRISS GAMA MRN: [facility]:[id number] date: 1995 Sex: F Assigned Patient Location: US Current Patient Location: [place] Accession/Order Number: [id number] Exam Date: 10/24/2025 10:08 Report Date: 10/24/2025 [...] Faria M.D. 10/24/2025 10:38 AM Dictation Location: [employer] Electronically authenticated by: [id number] Y Date: 0:38 Dictated By: Will Faria M.D. Signed By:10/24/25 1040 DD/ 1038 TD/TT: Ex Assistant/Program Director: Authorizing ProviderResult TypeResult StatusSteph Keane NPCLINISYNC IMAGING [...] PM EST Authorizing ProviderResult TypeResult StatusCorey Kiesha DOL BLOOD ORDERABLES Final ResultPerforming OrganizationAddressCity/State/ZIP CodePhone Number CLIN[facility]NC [facility] * (ABNORMAL) [facility] UA (CLEAN/CATCH) CHECK WRITER SALESPERSON/MICRO IF IND. (10/16/2025 1:30 PM EST) Only [...] Kiesha DOCLINISYNCFinal Result Performing OrganizationAddressCity/State/ZIP CodePhone Number CLINCH[facility]STIANA[facility]ARE [facility] * Urine culture (10/16/2025 1:30 PM EST)ComponentValueRef RangeTest Method Analysis TimePerformed AtPathologist SignatureFRMC NOTE?20,000 colonies/ml mixed ?bacterial skin contaminants ?2 Days 10/18/2025 10:10 AM [facility] CtrSpecimen (Source)Anatomical Location / LateralityCollection Method / VolumeCollection TimeReceived Time Clean-Voided Midstream (Clean Void Midstream)10/16/2025 1:30 PM EST10/16/2025 4:19 PM EST Narrative [facility] - 10/18/2025 10:10 AM EST Diagnosis: HIGH BLOOD PRESSURE Comment: Authorizing ProviderResult TypeResult StatusCorey Kiesha DOLAB MICROBIOLOGY - GENERAL ORDERABLESFinal ResultPerforming OrganizationAddLankenau Medical Center/State/ZIP Code Phone Number [facility] [address] [place] [address], [facility] [address] [place] [address] * [facility] CREATININE (10/12/2025 8:28 PM EST) Only the most recent of3 resultswithin the time period is included. ComponentValueRef RangeTest MethodAnalysis TimePerformed AtPathologist Signature CREATININE0.740.55 - 1.02 mg/dLTBHTBH EGFR-AF BURMESE>60>=60 mL/min/1.73m 2TBH TBH EGFR-NON AF BURMESE>60>=60 mL/min/1.73m 2TBHSpecimen (Source)Anatomical Location / LateralityCollection Method / VolumeCollection TimeReceived Time 10/12/2025 8:28 PM EST10/12/2025 8:39 PM EST Narrative [facility] - 10/12/2025 8:59 PM EST Authorizing ProviderResult TypeResult StatusCorey Kiesha DOCLINISYNCFinal Result Performing OrganizationAddressCity/State/ZIP CodePhone Number [facility] * SRMCOH PROTHROMBIN TIME INR W/O [...] Kiesha DOCLINISYNCFinal Result Performing OrganizationAddressCity/State/ZIP CodePhone Number [facility] * [facility] AST (10/12/2025 8:28 PM EST) Only the most recent of3 resultswithin the time period is included. ComponentValueRef RangeTest MethodAnalysis TimePerformed AtPathologist Signature ASPARTATE AMINO [id number] - 37 U/LTBHSpecimen (Source)Anatomical Location / LateralityCollection [...] CodePhone Number [facility] * [facility] ALT (10/12/2025 8:28 PM EST) Only the most recent of3 resultswithin the time period is included. ComponentValueRef RangeTest MethodAnalysis TimePerformed AtPathologist Signature ALANINE [id number] - 59 U/LTBHSpecimen (Source)Anatomical Location / LateralityCollection [...] Kiesha DOCLINISYNCFinal Result Performing OrganizationAddressCity/State/ZIP CodePhone Number [facility] * [facility] (10/12/2025 8:28 PM EST) Only the most recent of2 resultswithin the time period is included. ComponentValueRef RangeTest MethodAnalysis TimePerformed AtPathologist Signature LACTATE [id number] - 234 U/LTBHSpecimen (Source)Anatomical Location / LateralityCollection Method / VolumeCollection TimeReceived Time10/12/2025 8:28 PM EST10/12/2025 8:39 PM EST Narrative [facility] - 10/12/2025 8:59 PM EST Authorizing ProviderResult TypeResult StatusCorey Kiesha DOCLINISYNCFinal Result Performing OrganizationAddressty/State/ZIP CodePhone Number [facility] * (ABNORMAL) ALL CBC WITH AUTO [...] - 35.2 g/dLTBHTBH RDW13.211.0 - 15.0 %TBHTBH [id number] - 450 10 3/uLTBHTBH MPV9.69.5 - 13.5 [...] DOCLINISYNCFinal Result Performing OrganizationAddressCity/State/ZIP CodePhone Number CLINISYNC [facility] * ALL BUN (10/12/2025 8:28 PM EST) Only the most recent of3 resultswithin the time period is included. ComponentValueRef RangeTest MethodAnalysis TimePerformed AtPathologist Signature BLOOD UREA LYLEQZGA63.07.0 - 18.0 mg/dLTBHSpecimen (Source)Anatomical Location / LateralityCollection [...] MethodAnalysis TimePerformed AtPathologist Signature TOTAL PROTEIN URINE VHCBPJ22.5(H)<=11.9 mg/dLTBHCREATININE URINE UFBIGX84.21 20.00 - 300.00 mg/dLTBHPROTEIN CREATININE RATIO URINE0.16TBHSpecimen (Source) Anatomical Location / LateralityCollection Method / VolumeCollection Time Received Time10/12/2025 7:05 PM EST10/12/2025 10:30 PM EST Narrative CLINISYNC - 10/12/2025 10:40 PM EST Authorizing ProviderResult TypeResult StatusCorey Kiesha DOCLINISYNCFinal Result Performing OrganizationAddressCity/State/ZIP CodePhone Number CLINISYNC [facility] * (ABNORMAL) MHPT FIBRINOGEN (09/03/2025 5:15 PM EDT)ComponentValueRef RangeTest MethodAnalysis TimePerformed AtPathologist VfoxgooktYYIWLNHVLH720(H)200 - 400 mg/dLTBHSpecimen (Source)Anatomical Location / LateralityCollection Method / VolumeCollection TimeReceived Time09/03/2025 5:15 PM EDT1 5:21 PM EDT Narrative CLINISYNC - 09/03/2025 5:45 PM EDT Authorizing ProviderResult TypeResult StatusCorey [facility] DOCLINISYNCFinal Result Performing OrganizationAddKindred Healthcarety/State/ZIP CodePhone Number CLINISYNC [facility] * (ABNORMAL) [facility] TOTAL PROTEIN 24 HOUR URINE (08/29/2025 8:00 AM EDT)Component ValueRef RangeTest MethodAnalysis TimePerformed AtPathologist SignatureTOTAL PROTEIN URINE UBONDY88.6(H)<=11.9 mg/dLTBHTOTAL VOLUME 24 HOUR EIYGG800wO/24hr TBHTBH TOTAL PROTEIN 24 HOUR ZQKRI675.6<=149.1 mg/24hrTBHSpecimen (Source) Anatomical Location / LateralityCollection Method / VolumeCollection Time Received Time08/29/2025 8:00 AM EDT1 10:35 AM EDT Narrative CLINISYNC - 08/29/2025 12:08 PM EDT Authorizing ProviderResult TypeResult StatusGeneric External Data Provider CLINISYNCFinal ResultPerforming OrganizationAddressCity/State/ZIP CodePhone Number CLINISYNC TB * URINE CULTURE, ROUTINE (08/25/2025 8:10 AM EDT)ComponentValueRef RangeTest MethodAnalysis TimePerformed AtPathologist SignatureURINE CULTURE, ROUTINE ??Urine Culture, Routine TBHURINE CULTURE, ROUTINEMixed urogenital floraTBHURINE CULTURE, CJZJUVH04,000- 50,000 colony forming units per mLTBHURINE CULTURE, ROUTINEPerformed at: [facility] LabHenry Ford Wyandotte HospitalTBHURINE CULTURE, [id number] [place], [place] [id number] URINE CULTURE, ROUTINELab Director: Cm Sandoval PhD, Phone: [phone] Specimen (Source)Anatomical Location / LateralityCollection Method / Volume Collection TimeReceived Time08/25/2025 8:10 AM EDT08/25/2025 8:30 AM EDT Narrative JENNIFER - 08/26/2025 10:07 PM EDT Authorizing ProviderResult TypeResult StatusGeneric External Data ProviderLAB BLOOD ORDERABLESFinal ResultPerforming OrganizationAddressCity/State/ZIP Code Phone Number [facility] * US OB limited 1+ fetuses (08/12/2025 [...] Junito Alas MD Authorizing ProviderResult TypeResult StatusNathan RIDER OB US PROCEDURES Final Result * Pap Smear (08/18/2024 12:00 AM EDT)Specimen (Source)Anatomical Location / LateralityCollection Method / VolumeCollection TimeReceived TimeSwabCervical swab / Unknown Narrative Authorizing ProviderResult TypeResult StatusFastephono Nurse [facility] ObLAB CYTOLOGY ORDERABLESFinal ResultPerforming OrganizationAddressCity/State/ZIP CodePhone Number EXTERNAL LAB * THINPREP PAP AND HPV MRNA E6/E7 W/RFL HPV 16,18/45 (09/03/2023 4:00 PM EDT) Narrative Authorizing ProviderResult TypeResult StatusAmy [place] PALAB BLOOD ORDERABLES Final ResultPerforming OrganizationAddressCity/State/ZIP CodePhone Number EXTERNAL LAB from Last 3 Months or Most Recently Relevant to Health Maintenance Insurance Care Teams Team MemberRelationshipSpecialtyStart DateEnd Date Eliceo Beltran DO [address] [place] [address] PCP - GeneralFamily Medicine02/14/24 Eliceo Beltran DO [address] [place] [address] PCP - Medical [place] [employer]07/27/2412
== END 2025-10-29 12:07 | disposition home or self-care (01) ==
LOC: LAB 12:06
PROVIDERS: Family Provider Family Medicine; PCP Family Medicine; Visit Provider Obstetrics & Gynecology
DX: Z34.93 Encounter for supervision of normal pregnancy, unspecified, third trimester (principal); Z3A.35 35 weeks gestation of pregnancy
CPT/HCPCS: 87081

== ENCOUNTER 2025-10-31 10:05 | Outpatient (OUT) | payer OTHER, SELFPAY ==
--- OUTSIDE RECORDS SUMMARY | 2025-10-29 09:00 | XMS_ITS | Encounter Summary ---
Author Organization [facility] Address [address] [place] [address] Care Team Providers Care Construction Representative Name Role Phone CharlotteEliceo medina Primary Care Provider Charlottecarol Eliceo Hurtado DO Unavailable [phone] Reason for Visit * ReasonCommentsRoutine Visit Encounter Details DateTypeDepartmentCare Team (Latest Contact Info)Pzqqwevzbqz75/04/2025 9:00 AM ESTRoutine [facility] [address] [place] [address] Nathan Pop DO [address] [place], [place] [id number] Third trimester ([facility]); 35 weeks gestation of ([facility]); H/O pre-eclampsia in prior , currently ([facility]); H/O premature delivery Social History Tobacco UseTypesPacks/DayYears UsedDateSmoking Tobacco: NeverSmokeless Tobacco: NeverAlcohol UseStandard Drinks/WeekCommentsNever0 (1 standard drink = 0.6 oz pure alcohol)caffeine: 1-2 cups per day, coffee and yriJ1339 Health Literacy AnswerDate RecordedHow often do you [...] week12/29/2024How often do you attend amish or amish services?Patient /03/2025Do you belong to any clubs or organizations such as amish groups, unions, [employer] or athletic leodan ups, or school groups?No12/29/2024How often do you attend meetings of the clubs or organizations you belong to?Patient qckfkkbe02/03/2025re you , , , , never , [...] at all12/29/2024PHQ-2AnswerDate RecordedPatient Health Questionnaire-2 Score0 07/30/2025[facility] [place] [facility] Occupational Health - Occupational Stress QuestionnaireAnswerDate RecordedDo you feel stress - tense, restless, nervous, or anxious, or unable to sleep at night because yourmind is troubled all the time - these days?Only a lqaifw0412/29/2024Exercise Vital SignAnswerDate Recorded On average, how many [...] steady place to sleep or slept in [place]el[place] (including now)?No09/19/2023Housing Stability Vital SignAnswerDate RecordedIn the [...] the highest degree you have received?High school qojahxwa94/29/2023 Estimated Date of QpxpeovyUtkdymtpUht54/03/2026ased on last menstrual period of 02/21/2025Sex and Gender InformationValueDate RecordedSex Assigned at BirthNot on fileLegal AoaGabmis38/15/2023 7:18 PM EDTGender IdentityNot on file Sexual OrientationNot on 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 Not on fileNot on fileNot on filedocumented as of this encounter Last Filed Vital Signs Vital SignReadingTime TakenCommentsBlood Rhsecmrb716/8212 9:33 AM EST Pulse--Temperature--Respiratory Rate--Oxygen Saturation--Inhaled Oxygen Concentration--Bvulju52.1 kg (170 lb)10/29/2025 9:33 AM ESTHeight--Body Mass [...] 02/19/2024 Diarrhea 03/24/2025 33 weeks gestation of ([facility]) 10/14/2025 Third trimester ([facility]) 10/14/2025 H/O pre-eclampsia in prior , currently ([facility]) 10/29/2025 H/O premature delivery 10/29/2025 Resolved Ambulatory Problems Diagnosis Date Noted No Resolved Ambulatory Problems Past Medical History: Diagnosis Date Amenorrhea d/t oral contraceptive pills John San infection GDM (gestational diabetes mellitus) ([facility]) Headache History of menstrual cramps ([facility]) Varicella zoster Visual impairment HISTORY PAST MEDICAL HISTORY SOCIAL HISTORY Past Medical History: Diagnosis Date Amenorrhea d/t oral contraceptive pills Endometriosis John San infection GDM (gestational diabetes mellitus) ([facility]) Headache History of menstrual cramps severe Hypertension ([facility]) x1 Varicella zoster unsure Visual impairment [...] History: Procedure Laterality Date APPENDECTOMY 05[place] [facility] [place] [place] 12/2022 retained placenta DISTAL [...] nursing note reviewed. Exam conducted with a mlt present. Vitals: Estimated body mass index is 31.09 kg/m?? as calculated from the following: Height as of 07/30/25: 5' 2 . Weight as of this encounter: 170 lb. BP: 128/82 Patient's last menstrual period was 02/21/2025. Assessment/Plan ICD-10-CM 1. Third trimester ([facility]) Z34.93 POCT urinalysis dipstick manually resulted CULTURE, GROUP B STREP WITH SUSCEPTIBLITY CULTURE, GROUP B STREP WITH SUSCEPTIBLITY 2. 35 weeks gestation of ([facility]) Z3A.35 3. H/O pre-eclampsia in prior , currently ([facility]) O09.299 4. H/O premature delivery Z87.51 [...] Plan of Treatment DateTypeDepartmentCare Team (Latest Contact Info)Myntnzaemlt30/10/2025 2:10 PM ESTRoutine [facility] [address] [place] [address] Nathan Pop DO [address] [place], [place] [id number] NameTypePriorityAssociated DiagnosesOrder ScheduleCULTURE, GROUP B STREP WITH SUSCEPTIBLITYLabRoutine Third trimester ([facility]) Expected: 10/29/2025, Expires: 10/29/2026documented as of this encounter Procedures Procedure NamePriorityDate/TimeAssociated DiagnosisCommentsPOCT URINALYSIS AEAXPMUPIiiajpd49/04/2025 9:38 AM EST Third trimester ([facility]) documented in this encounter Results * [...] / LateralityCollection Method / VolumeCollection Time Received WtzhYtjjk55/04/2025 9:38 AM EST Narrative Authorizing ProviderResult TypeResult StatusCorey Kiesha DOPOINT OF CARE TEST ENTER/EDIT ORDERABLESFinal Result documented in this encounter Visit Diagnoses Diagnosis Third trimester ([facility]) state, incidental 35 weeks gestation of ([facility]) H/O pre-eclampsia in prior , currently ([facility]) H/O premature delivery documented in this encounter Care Teams Team MemberRelationshipSpecialtyStart DateEnd Date Eliceo Beltran DO [address] [place] [address] PCP - GeneralFamily Medicine02/14/24 Eliceo Beltran DO [address] [place] [address] PCP - Medical [place] [employer]07/27/2412documented as of this encounter
--- NOTE | 2025-10-31 10:07 | US_ITS ---
[place] [id number] Patient Name: JUHI HOPE MRN: [facility]:[id number] date: 1995 Sex: F Assigned Patient Location: [facility] Current Patient Location: Accession/Order Number: [id number] Exam Date: 10/31/2025 10:08 Report Date: 10/31/2025 12:16 At the request of: MARBELLA HUNTER Procedure: US OB BPP w non-stress Ultrasound biophysical profile INDICATION: -induced hypertension COMPARISON: 10/23/2025 FINDINGS/ IMPRESSION: Cephalic position. 8 out of 8 score biophysical profile. LEONEL 10.6 cm. heart 141 bpm Impression dictated by: Chu Amaya M.D. 10/31/2025 12:16 PM Dictation [facility] Electronically authenticated by: [id number] Y Date: 10/31/2025 12:16
--- OUTSIDE RECORDS SUMMARY | 2025-10-31 10:07 | XMS_ITS | Encounter Summary ---
Author Organization [facility] Address [address] [place] [address] Care Team Providers Care Dive Superintendent Name Role Phone Eliceo Beltran Primary Care Provider [phone] CharlottegeovaniEliceo kauffman Unavailable [phone] Encounter Details DateTypeDepartmentCare Team (Latest Contact Info)Vfboxdxkwpp21/29/2025Clinisync Result Encounter [facility] External Department Unsolicited Steph Keane, DEVYN [address] [facility] [place] [address] Social History Tobacco UseTypesPacks/DayYears UsedDateSmoking Tobacco: NeverSmokeless Tobacco: NeverAlcohol UseStandard Drinks/WeekCommentsNever0 (1 standard drink = 0.6 oz pure alcohol)caffeine: 1-2 cups per day, coffee and [id number] Health Literacy AnswerDate RecordedHow often do you [...] week12/29/2024How often do you attend congregational or jainism services?Patient ukrqytzi45/03/2025Do you belong to any clubs or organizations such as congregational groups, unions, [employer] or athletic leodan ups, or school groups?No12/29/2024How often do you attend meetings of the clubs or organizations you belong to?Patient lklwsnle89/03/2025re you , , , , never , [...] RecordedPatient Health Questionnaire-2 Score0 07/30/2025[facility] [place] of Occupational Health - Occupational Stress QuestionnaireAnswerDate RecordedDo you feel stress - tense, restless, nervous, or anxious, or unable to sleep at night because yourmind is troubled all the time - these days?Only a amezfr0912/29/2024Exercise Vital SignAnswerDate Recorded On average, how many [...] steady place to sleep or slept in [facility] (including now)?No09/19/2023Housing Stability Vital SignAnswerDate [...] the highest degree you have received?High school djxyxzbr74/29/2023 Estimated Date of LpmfblztXtgfzjntYia34/03/2026ased on last menstrual period of 02/21/2025Sex and Gender InformationValueDate RecordedSex Assigned at BirthNot on fileLegal ZyeZhurii78/15/2023 7:18 PM EDTGender IdentityNot on file Sexual OrientationNot on 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 Not on fileNot on fileNot on filedocumented as of this encounter Plan of Treatment DateTypeDepartmentCare Team (Latest Contact Info)Jocalskrcdk07/10/2025 2:10 PM ESTRoutine [facility] [place] [facility] [address] [place] [phone] Nathan Pop, DO [address] [facility] [address] [place] [address] documented as of this encounter Procedures Procedure NamePriorityDate/TimeAssociated DiagnosisCommentsUS OB BPP W NON-FGANLY5010/24/2025 10:38 AM EST documented in this encounter Results * US OB BPP W NON-STRESS (10/24/2025 10:38 AM EST)Anatomical Region LateralityModalityOtherSpecimen (Source)Anatomical Location / Laterality Collection Method / VolumeCollection TimeReceived Time10/24/2025 10:38 AM EST Narrative 10/24/2025 10:40 AM EST The [facility] ?[address] ? [place] [address] ? Ultrasound Report ? Signed ? Patient: DRISS GAMA ?MR#: [id number] ?? : 1995 ?Acct:[id number] ?? Age/Sex: 30 / F ?ADM Date: 10/24/25 ?? Loc: [facility] ??250-1 ? Attending Dr: Steph Keane ? Ordering Physician: Steph Keane ?? Date of Service: 10/24/25 ?? Procedure(s): US OB BPP w non-stress ?? Accession Number(s): [id number] ? cc: Steph Keane; Yomaira BELTRAN ? The [facility] ? [address] ? [place] [address] ? Patient Name: ?? DRISS Sanchez JAYY ? MRN: [id number] ? date: 1995 ?Sex: F ?? Assigned Patient Location: US ?? Current Patient Location: US ?? Accession/Order Number: [id number] ?? Exam Date: 10/24/2025 ??10:08 ?Report Date: [...] M.D. ??10/24/2025 10:38 AM ? Dictation Location: [facility]PC-17 ? Electronically authenticated by: [id number] ??Y ?? Date: 10/24/2025 ??10:38 ? Dictated By: ?Will Faria M.D. ? Signed By: ?10/24/25 1040 ? DD/ 1038 ? TD/TT: ? Electric Meter Tester: Procedure Note Radiology, Radiologist, MD - 10/24/2025 [place] [address] Ultrasound Report Signed Patient: DRISS GAMA [facility]#: [id number] : 1995Acct:[id number] Age/Sex: 30 / FADM Date: 10/24/25 Loc: [facility] 250-[address]: Steph Keane Ordering Physician: Steph Keane Date of Service: 10/24/25 Procedure(s): US OB BPP w non-stress Accession Number(s): [id number] cc: Steph Keane; Yomaira BELTRAN The [address] [address] Patient Name: DRISS GAMA MRN: [id number] date: 1995 Sex: F Assigned Patient Location: Current Patient Location: Accession/Order Number: [id number] Exam Date: 10/24/2025 10:08 Report Date: 10/24/2025 [...] Faria M.D. 10/24/2025 10:38 AM Dictation Location: [place] [address] Electronically authenticated by: [id number] Y Date: 0:38 Dictated By: Will Faria M.D. Signed By:10/24/25 1040 DD/ 1038 TD/TT: Electric Meter Tester: Authorizing ProviderResult TypeResult StatusSteph Keane NPCLINISYNC IMAGING Final Result documented in this encounter Visit Diagnoses Not on filedocumented in this encounter Care Teams Team MemberRelationshipSpecialtyStart DateEnd Date Eliceo Beltran DO [address] [place] [address] [facility] - [facility]/14/24 Eliceo Beltran DO [address] [place] [address] PCP - Medical [place] [employer]07/27/2412documented as of this encounter
--- OUTSIDE RECORDS SUMMARY | 2025-10-31 10:08 | XMS_ITS | Encounter Summary ---
Author Organization [facility] Address [address] [place] [address] Care Team Providers Care Asset Protection Detective Name Role Phone NirajEliceo kauffman Primary Care Provider [phone] RubyEliceo Bryant DAY Unavailable [phone] Encounter Details DateTypeDepartmentCare Team (Latest Contact Info)Fmcdeollcrm31/01/2025Telephone [facility] [place] [facility] [address] [place] [address] [place] [address] Rossy Davila MA Social History Tobacco UseTypesPacks/DayYears UsedDateSmoking Tobacco: NeverSmokeless Tobacco: NeverAlcohol UseStandard Drinks/WeekCommentsNever0 (1 standard drink = 0.6 oz pure alcohol)caffeine: 1-2 cups per day, coffee and [id number] Health Literacy AnswerDate RecordedHow often do you [...] week12/29/2024How often do you attend episcopalian or evangelical services?Patient wnaksbiq82/03/2025Do you belong to any clubs or organizations such as episcopalian groups, unions, [employer] or athletic leodan ups, or school groups?No12/29/2024How often do you attend meetings of the clubs or organizations you belong to?Patient ntlqiyaj96/03/2025re you , , , , never , [...] RecordedPatient Health Questionnaire-2 Score0 07/30/2025Finblue [facility] hospital [place] of Occupational Health - Occupational Stress QuestionnaireAnswerDate RecordedDo you feel stress - tense, restless, nervous, or anxious, or unable to sleep at night because yourmind is troubled all the time - these days?Only a oiuulw3612/29/2024Exercise Vital SignAnswerDate Recorded On average, how many [...] the highest degree you have received?High school iwpjrych39/29/2023 Estimated Date of KruvodjvKbswvncaCbj75/03/2026ased on last menstrual period of 02/21/2025Sex and Gender InformationValueDate RecordedSex Assigned at BirthNot on fileLegal HhoExguoi09/15/2023 7:18 PM EDTGender IdentityNot on file Sexual OrientationNot on 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 Medication sent documented in this encounter Plan of Treatment DateTypeDepartmentCare Team (Latest Contact Info)Rncwdysltur16/10/2025 2:10 PM ESTRoutine [facility] [place] YOUNGN [address] [facility] [place] [address] Nathan [place] DO [address] [facility] [place] [address] documented as of this encounter Visit Diagnoses Diagnosis Hypertension affecting , antepartum ([facility]) documented in this encounter Care Teams Team MemberRelationshipSpecialtyStart DateEnd Date Eliceo Beltran DO [address] [place] [address] PCP - GeneralFamily Medicine02/14/24 Eliceo Beltran DO [address] [place] [address] PCP - Medical [place] [employer]07/27/2412documented as of this encounter
--- OUTSIDE RECORDS SUMMARY | 2025-10-31 10:08 | XMS_ITS | Encounter Summary ---
Author Organization [facility] Address [address] [place] [address] Care Team Providers Care Vmware Architect Name Role Phone Eliceo Beltran DO Primary Care Provider [phone] CharlottecarolEliceo Unavailable [phone] Encounter Details DateTypeDepartmentCare Team (Latest Contact Info)Syhwqwmrscg71/04/2025amboo flowsheet [facility] [place] [facility] [address] [place] [address] Nathan Pop DO [address] [facility] [address] [place], [facility] Social History Tobacco UseTypesPacks/DayYears UsedDateSmoking Tobacco: NeverSmokeless Tobacco: NeverAlcohol UseStandard Drinks/WeekCommentsNever0 (1 standard drink = 0.6 oz pure alcohol)caffeine: 1-2 cups per day, coffee and [id number] Health Literacy AnswerDate RecordedHow often do you [...] week12/29/2024How often do you attend samaritan or scientologist services?Patient ueldqlki11/03/2025Do you belong to any clubs or organizations such as samaritan groups, unions, [employer] or athletic leodan ups, or school groups?No12/29/2024How often do you attend meetings of the clubs or organizations you belong to?Patient qayvvlsp29/03/2025re you , , , , never , [...] Health Questionnaire-2 Score0 07/30/2025Finjordan [facility] [place] of Occupational Health - Occupational Stress QuestionnaireAnswerDate RecordedDo you feel stress - tense, restless, nervous, or anxious, or unable to sleep at night because yourmind is troubled all the time - these days?Only a baryel3712/29/2024Exercise Vital SignAnswerDate Recorded On average, how many [...] have received?High school /29/2023 Estimated Date of EnhsaiptVykeuxclGur45/03/2026ased on last menstrual period of 02/21/2025Sex and Gender InformationValueDate RecordedSex Assigned at BirthNot on fileLegal JbxObsilu53/15/2023 7:18 PM EDTGender IdentityNot on file Sexual OrientationNot on 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 Not on fileNot on fileNot on filedocumented as of this encounter Plan of Treatment DateTypeDepartmentCare Team (Latest Contact Info)Ubsooqcuvmh92/10/2025 2:10 PM ESTRoutine [facility] [place] [facility] [address] [facility] [place] [phone] Nathan [place] DO [address] [facility] [place] [address] documented as of this encounter Visit Diagnoses Not on filedocumented in this encounter Care Teams Team MemberRelationshipSpecialtyStart DateEnd Date Eliceo Beltran DO [address] [address] PCP - GeneralFamily Medicine02/14/24 Eliceo Beltran DO [address] [place] [address] PCP - Medical [place] [employer]07/27/2412documented as of this encounter
--- OUTSIDE RECORDS SUMMARY | 2025-10-31 10:08 | XMS_ITS | Encounter Summary ---
Author Organization [facility] Address [address] [place] [address] Care Team Providers Care Rn Rehabilitation Name Role Phone RubyEliceo [place] DAY Primary Care Provider [phone] Ruby Eliceo Hurtado DO Unavailable [phone] Encounter Details DateTypeDepartmentCare Team (Latest Contact Info)Rpsiorkjhqs08/30/2025Travel Social History Tobacco UseTypesPacks/DayYears UsedDateSmoking Tobacco: NeverSmokeless Tobacco: NeverAlcohol UseStandard Drinks/WeekCommentsNever0 (1 standard drink = 0.6 oz pure alcohol)caffeine: 1-2 cups per day, coffee and [id number] Health Literacy AnswerDate RecordedHow often do you [...] week12/29/2024How often do you attend cheondoism or religion services?Patient bgywczvu70/03/2025Do you belong to any clubs or organizations such as cheondoism groups, unions, fraternal or athletic leodan ups, or school groups?No12/29/2024How often do you attend meetings of the clubs or organizations you belong to?Patient musahmmk88/03/2025re you , , , , never , [...] RecordedPatient Health Questionnaire-2 Score0 07/30/2025[facility] [place] of Occupational Health - Occupational Stress QuestionnaireAnswerDate RecordedDo you feel stress - tense, restless, nervous, or anxious, or unable to sleep at night because yourmind is troubled all the time - these days?Only a yeilwu1812/29/2024Exercise Vital SignAnswerDate Recorded On average, how many [...] place to sleep or [facility] ([facility])?No09/19/2023Housing Stability Vital SignAnswerDate [...] the highest degree you have received?High school waesefgg85/29/2023 Estimated Date of IvigveyxEvumuysgMgr97/03/2026ased on last menstrual period of 02/21/2025Sex and Gender InformationValueDate RecordedSex Assigned at BirthNot on fileLegal GpqMtihdf43/15/2023 7:18 PM EDTGender IdentityNot on file Sexual OrientationNot on 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 Not on fileNot on fileNot on filedocumented as of this encounter Plan of Treatment DateTypeDepartmentCare Team (Latest Contact Info)Glbrpqswknf85/10/2025 2:10 PM ESTRoutine [facility] [place] [facility] [address] [place] [address] [place], DO [address] [place] [address] [place] [address] documented as of this encounter Visit Diagnoses Not on filedocumented in this encounter Care Teams Team MemberRelationshipSpecialtyStart DateEnd Date Eliceo Beltran DO [address] [place] [address] PCP - GeneralFamily Medicine02/14/24 Eliceo Beltran DO [address] [place] [address] PCP - Medical [place] [employer]07/27/2412documented as of this encounter
--- OUTSIDE RECORDS SUMMARY | 2025-10-31 10:08 | XMS_ITS | Encounter Summary ---
Author Organization [facility] Address [address] [place] [address] Care Team Providers Care Supervisor Heat Treating Name Role Phone Eliceo Beltran Primary Care Provider [phone] CharlottecarolEliceo Bryant DAY Unavailable [phone] Encounter Details DateTypeDepartmentCare Team (Latest Contact Info)Driqnhwkcyv19/04/2025Telephone [facility] [place] [facility] [address] [place] [address] [place] [phone] Candis Yanes LPN Social History Tobacco UseTypesPacks/DayYears UsedDateSmoking Tobacco: NeverSmokeless Tobacco: NeverAlcohol UseStandard Drinks/WeekCommentsNever0 (1 standard drink = 0.6 oz pure alcohol)caffeine: 1-2 cups per day, coffee and [id number] Health Literacy AnswerDate RecordedHow often do you [...] you attend hoahaoism or jehovah's witness services?Patient sorzeqxg48/03/2025Do you belong to any clubs or organizations such as hoahaoism groups, unions, [employer] or athletic leodan ups, or school groups?No12/29/2024How often do you attend meetings of the clubs or organizations you belong to?Patient eqvgyrur10/03/2025re you , , , , never , [...] all12/29/2024PHQ-2AnswerDate RecordedPatient Health Questionnaire-2 Score0 07/30/2025Finlake[facility] hospital [place] of Occupational Health - Occupational Stress QuestionnaireAnswerDate RecordedDo you feel stress - tense, restless, nervous, or anxious, or unable to sleep at night because yourmind is troubled all the time - these days?Only a yefser6312/29/2024Exercise Vital SignAnswerDate Recorded On average, how many [...] the highest degree you have received?High school dzowvigf03/29/2023 Estimated Date of FmseeiivGwkhjkkpFnk33/03/2026ased on last menstrual period of 02/21/2025Sex and Gender InformationValueDate RecordedSex Assigned at BirthNot on fileLegal BzkHuxfvd42/15/2023 7:18 PM EDTGender IdentityNot on file Sexual OrientationNot on 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 3:17pm Called patient and informed her that it is recommended that she keep appointment with MFM and still with our office next week. Then discussed how many people are allowed to be in room for delivery. Patient will call back with any concerns and will keep appointment for next week--Candis Barron LPN documented in this encounter Plan of Treatment DateTypeDepartmentCare Team (Latest Contact Info)Cjffyygerfc61/10/2025 2:10 PM ESTRoutine [facility] [place] [facility] [address] [place] [address] Nathan [place] DO [address] [facility] [place] [address] documented as of this encounter Visit Diagnoses Not on filedocumented in this encounter Care Teams Team MemberRelationshipSpecialtyStart DateEnd Date Eliceo Beltran DO [address] [facility] [place] [address] PCP - GeneralFamily Medicine02/14/24 Eliceo Beltran DO [address] [facility] [address] [place] [address] PCP - Medical [place] [employer]07/27/2412documented as of this encounter
--- OUTSIDE RECORDS SUMMARY | 2025-10-31 10:08 | XMS_ITS | Encounter Summary ---
Author Organization [facility] tem Address [id number] [address] [place] [address] Care Team Providers Care Acquisition Marketing Manager Name Role Phone Cruz Rodríguez MD Primary Care Provider [phone] Encounter Details DateTypeDepartmentCare Team (Latest Contact Info)Zxkoyjxqbnh53/03/2025Travel Social History Tobacco UseTypesPacks/DayYears UsedDateSmoking Tobacco: NeverSmokeless Tobacco: NeverAlcohol UseStandard Drinks/WeekCommentsNo0 (1 standard drink = 0.6 oz pure alcohol)AUDIT-CAnswerDate RecordedQ1: How often do you have a drink containing alcohol?Never09/10/2025Q2: How many drinks containing alcohol do you have on a typical day when you are drinking?Patient does not drink09/10/2025Q3: How often do you have six or more drinks on one occasion?Never09/10/2025hildcareAnswer Date LggquproGtsqohsikIkqenvu44/13/2019EmploymentAnswerDate RecordedEmployment Nubphsb5405/08/2019Hunger ScreeningAnswerDate RecordedWithin the past 12 months we worried whether our food would run out before we got money to buy more.Never True09/10/2025Within the past 12 months the food we bought just didn't last and we didn't have money to get more.Never True09/10/2025Purpose - LifeAnswerDate RecordedPurpose and direction in opdcUuyioke08/11/2021Estimated Date of ImmirspdZnkrfmwqStm93/03/2026Based on last menstrual period of 02/21/2025 (Exact Date)Sex and Gender InformationValueDate RecordedSex Assigned at BirthNot on fileLegal LfmHagdvi50/07/2019 2:55 PM ESTGender IdentityNot on fileSexual OrientationNot on filedocumented as of this encounter Plan of Treatment DateTypeDepartmentCare Team (Latest Contact Info)Uarxmcnmhub19/09/2025 2:30 PM ESTOffice Visit Maternal- [facility] at [facility] [address] [place] [address] Kayleigh Rizzo, PA-C [address] [address] documented as of this encounter Visit Diagnoses Not on filedocumented in this encounter Care Teams Team MemberRelationshipSpecialtyStart DateEnd Date Cruz Rodríguez MD [address] [place] [address] PCP - GeneralFamily Medicine12/02/18documented as of this encounter
--- OUTSIDE RECORDS SUMMARY | 2025-10-31 10:08 | XMS_ITS | Encounter Summary ---
Author Organization [facility] tem Address [facility] [id number] [address] [place] [address] Care Team Providers Care Cathead Worker Name Role Phone Cruz Rodríguez MD Primary Care Provider [phone] Encounter Details DateTypeDepartmentCare Team (Latest Contact Info)Zxsmnfgggzc75/25/2025Telephone Maternal- Medicine at [facility] [address] [facility] [place] [address] Cha Harris, DIALLO Social History Tobacco UseTypesPacks/DayYears [...] or more drinks on one occasion?Never5ChildcareAnswer Date TylhzbnuTsiobtckxFdkrpte03/13/2019EmploymentAnswerDate RecordedEmployment Ruztogy7405/08/2019Hunger ScreeningAnswerDate RecordedWithin the past 12 months we worried whether our food would run out before we got money to buy more.Never True09/10/2025Within the past 12 months the food we bought just didn't last and we didn't have money to get more.Never True09/10/2025Purpose - LifeAnswerDate RecordedPurpose and direction in fuaiZejuwhb13/11/2021Estimated Date of NnlgdsgqPihutnzaVil14/03/2026Based on last menstrual period of 02/21/2025 (Exact Date)Sex and Gender InformationValueDate RecordedSex Assigned at BirthNot on fileLegal WtvKtbxoa09/07/2019 2:55 PM ESTGender IdentityNot on fileSexual OrientationNot [...] Plan of Treatment DateTypeDepartmentCare Team (Latest Contact Info)Ecohrdrtchs70/09/2025 2:30 PM ESTOffice Visit Maternal- Medicine at [facility] [address] [place] [address] Kayleigh Rizzo, PAAlbinC [address] [address] documented as of this encounter Visit Diagnoses Diagnosis Insulin controlled gestational diabetes mellitus (GDM) in second trimester documented in this encounter Care Teams Team MemberRelationshipSpecialtyStart DateEnd Date Cruz Rodríguez MD [address] [place] [address] PCP - GeneralFamily Medicine12/02/18documented as of this encounter
--- OUTSIDE RECORDS SUMMARY | 2025-10-31 10:08 | XMS_ITS | Clinical Summary ---
Author Organization [facility] tem Address [id number] [address] [place] [address] Care Team Providers Care Plastics Engineering Teacher Name Role Phone Cruz Rodríguez MD Primary Care Provider [phone] Allergies No known active allergies Medications MedicationSigDispense [...] ProblemNoted DateDiagnosed DateEssential hypertension affecting in third scofywfnb09/10/2025Insulin controlled gestational diabetes mellitus (GDM) in third ayedwkqmd79/26/2025Estimated Date of DeliveryCommentsYes 11/28/2025ased on last menstrual period of 02/21/2025 (Exact Date) Encounters DateTypeDepartmentCare RzduGgdfmpmcsan39/03/4121Caxnfx31/25/2025Telephone Maternal- Medicine at [facility] [address] [place] [address] Cha Harris RN 10/20/2025Orders Only Maternal- Medicine at [facility] [address] [place] [address] Kayleigh Rizzo PA-C Essential hypertension affecting in third ruvzndatt74/14/2025Orders Only Maternal- Medicine at [facility] [address] [place] [address] Zora Samuels RN Essential hypertension affecting in third trimester (Primary Dx); Insulin controlled gestational diabetes mellitus (GDM) in third trimester 10/08/2025Orders Only Maternal Medicine [place] [address] [facility] [address] [place] [address] Danae Ramirez RN Insulin controlled gestational diabetes mellitus (GDM) in third trimester (Primary Dx); Essential hypertension affecting in third trimester; Encounter for follow-up ultrasound of anatomy; History of pre-eclampsia in prior , currently ; Hx of delivery, currently , second bmqtvpvah62/11/2025 2:30 PM ESTTelemedicine Maternal- Medicine at [facility] [address] [place] [address] Kayleigh Rizzo PA-C Insulin controlled gestational diabetes mellitus (GDM) in third trimester (Primary Dx); Essential hypertension affecting in third whobubhpb99/11/2025Travel 10/05/2025Telephone Maternal- Medicine at [facility] [address] [place] [address] Anjana Davalos RN 10/04/20251458Qbtlgc96/03/2025Telephone Maternal- Medicine at [facility] [address] [facility] [place] [address] Cha Harris, DIALLO 09/28/2025Orders Only Maternal- Medicine at [facility] [address] [facility] [place] [address] Kayleigh Rizzo, PA-C Essential hypertension affecting in third dqotqlctd57/27/2025Telephone Maternal- Medicine at [facility] [address] [facility] [place] [address] Verito Gudino LD 09/21/2025Remote Patient Monitoring Maternal- Medicine at [facility] [address] [facility] [place] [address] Kayleigh Rizzo, PA-C Insulin controlled gestational diabetes mellitus (GDM) in third trimester (Primary Dx); Essential hypertension affecting in third qsfwnenih68/23/2025Orders Only Maternal- Medicine at [facility] [address] [facility] [place] [address] Camila Arciniega APRN-MARIBEL Essential hypertension affecting in third xsukbqcxu62/22/2025Telephone Maternal- Medicine at [facility] [address] [facility] [place] [address] Cha Harris, DIALLO 09/15/2025Orders Only Maternal- Medicine at [facility] [address] [facility] [place] [place] [address] Kayleigh Rizzo PA-C Essential hypertension affecting in third xnkkcyuqo80/16/2025 11:00 AM EDTTelemedicine Maternal Medicine [place] [address] [facility] [address] [place] [address] Quynh Clements MD 28 weeks gestation of (Primary Dx); Insulin controlled gestational diabetes mellitus (GDM) in second trimester; Essential hypertension affecting in third znabzzgel49/16/2025Orders Only Maternal- Medicine at [facility] [address] [place] [address] Zora Samuels, DIALLO Essential hypertension affecting in third trimester (Primary Dx); Insulin controlled gestational diabetes mellitus (GDM) in second trimester; Encounter for follow-up ultrasound of ybfxjnq5809/10/20252051Uychue96/10/2025 3:00 PM EDTOffice Visit Maternal- Medicine at [facility] [address] [place] [address] Jean Carlos Denise MD Diet controlled gestational diabetes mellitus (GDM) in second trimester (Primary Dx); Essential hypertension affecting in third wbbmyarmg90/08/2025Travel 09/01/2025Telephone Maternal- Medicine at [facility] [address] [place] [address] Cha Harris RN 08/24/2025 1:30 PM EDTSupport Visit Maternal- Medicine at [facility] [address] [place] [address] Teena Sarmiento RN Kerline Steiner RD Gestational diabetes mellitus (GDM) in second trimester, gestational diabetes method of control wxgstajfuyk56/28/9949Nusboj36/27/2076Yfpila49/26/2025bstract Maternal- Medicine at [facility] [address] [place] [address] External, Scanning Provider 08/19/2025Orders Only Maternal- Medicine at [place] [address] [place] [address] Ref Prov, Not In System 08/18/2025bstract Maternal- Medicine at [place] [address] [place] [address] Quynh Clements MD 08/18/2025Orders Only Maternal- Medicine at [place] [address] [place] [address] Khalida Garrett RN History of pre-eclampsia in [...] or more drinks on one occasion?Never5ChildcareAnswer Date PvigkqhsXeanxlglhStytqhj93/13/2019EmploymentAnswerDate RecordedEmployment Rjmgmhm0305/08/2019Hunger ScreeningAnswerDate RecordedWithin the past 12 months we worried whether our food would run out before we got money to buy more.Never True09/10/2025Within the past 12 months the food we bought just didn't last and we didn't have money to get more.Never True09/10/2025Purpose - LifeAnswerDate RecordedPurpose and direction in yibvQpntfqn14/11/2021Estimated Date of AnfheqzyLohfenlwYik78/03/2026Based on last menstrual period of 02/21/2025 (Exact Date)Sex and Gender InformationValueDate RecordedSex Assigned at BirthNot on fileLegal WaiIbcpuj87/07/2019 2:55 PM ESTGender IdentityNot on fileSexual OrientationNot on file Last Filed Vital Signs Vital SignReadingTime TakenCommentsBlood Kbvrdlas509/8010/ 10:34 AM EDT Mytqk31312/10/2025 2:48 PM EDTTemperature--Respiratory Xcuy156412/10/2018 11:10 AM ESTOxygen Doezjmisjw69%12/10/2018 11:10 AM ESTInhaled Oxygen Concentration-- Vlnnst88.6 kg (160 lb)09/10/2025 10:34 AM FUOFtfvbl901.5 cm (5' 2.01 )09/04/2025 2:48 PM EDTBody Mass Index29.261 2:48 PM EDT Plan of Treatment DateTypeDepartmentCare Team (Latest Contact Info)Ppznermydsp33/09/2025 2:30 PM ESTOffice Visit Maternal- Medicine at [facility] [address] [place] [address] Kayleigh Rizzo PA-C [address] [address] Health MaintenanceDue DateLast DoneCommentsDepression Jjlqhxonh98/08/2007dult BMI Follow Up Plan2013DTaP,Tdap and Td Vaccines (7 - Td or Tdap)2024 2014, 05/03/2000, 12/29/1997, Additional history existsInfluenza Vaccine RSV ( or age 60+ yrs) (1 - Risk 1-dose series)10/03/2025dult BMI Xtzoldgjp15Tobacco Screening Pap Smear Medical Devices Not on file Procedures Procedure NamePriorityDate/TimeAssociated DiagnosisCommentsUS [facility] OB FOLLOW-UP, 1 IANVUWzkwnpg68/03/2025 12:08 PM EST Essential hypertension affecting in third trimester Insulin controlled gestational diabetes mellitus (GDM) in third trimester US [facility] OB FOLLOW-UP, 1 VQZIHMknxhcz77/13/2025 8:55 AM EST Essential hypertension affecting in third trimester Insulin controlled gestational diabetes mellitus (GDM) in second trimester Encounter for follow-up ultrasound of anatomy US MFM COMPREHENSIVE ANATOMIC LVABCLKrmivpg96/16/2025 10:56 AM EDT History of pre-eclampsia in prior , currently GLUCOSE TOLERANCE, 3 COIEEKyshfqx87/20/2025 GLUCOSE TOLERANCE, LGHHLFDNaguzfe68/20/2025 GLUCOSE TOLERANCE, 1 YJULJqgjkab12/20/2025 SECOND HOUR GLUCOSE TOLERANCE 100 GM PHGNKdmxyey04/20/2025 ULTRASOUND PJYFWCWdbgrre24/17/2025 3:39 PM EDTGLU 1H POST 50G LOADRoutine [...] REYNAGA : 1995 SEX: F Accession Number: [id number] ORDERING PHYSICIAN: JEAN CAROLS DENISE REFERRING PHYSICIAN: JONY MEJÍA Coding Procedures ? 76468: Ultrasound, uterus, real time with image documentation, follow up,transabdominal ? approach per fetus Indication Screening for follow-up survey, Gestational diabetes, Chronic hypertension affecting , History of prior with pre-eclampsia , History of prior with delivery , Previous surgery to cervix -(D&C). History OB History ? 2. Para 1 ? [id number] Current Cell free DNA ?Low Risk analysis [...] (oz) ? 5 oz EFW by: ?Hadlock (LNA-WR-CL-FL) Extended Tibia ??57.2 mm 33w 4d 21% Gerda [place]ork Lift Technician ? 1.4 mm Head / Face / Neck Cephalic index 0.82 ? 64% Nicolaides Nasal bone: ?documented previously Extremities / Bony Struc FL / BPD ? 0.70 FL / HC ?0.20 FL / AC ?0.20 Other Structures FHR ?129 bpm Anatomy The following structures appear normal: Head/Neck: Cranium. Lateral ventricles. Cavum septi pellucidi. Parenchyma. Heart/Thorax: 4-chamber view. RVOT view. LVOT view. 3-vessel view. 7-eqqnen-aznepmv view. Situs. Aortic arch view. ? Interventricular [...] is a normal variant. Recommendations Please see [facility] recommendations from prior clinical and/or [...] REYNAGA : 1995 SEX: F Accession Number: [id number] ORDERING PHYSICIAN: JEAN CARLOS DENISE REFERRING PHYSICIAN: JONY MEJÍA Coding Procedures 48050: Ultrasound, uterus, real time with image documentation, follow up, transabdominal approach per fetus Indication Screening for follow-up survey, Gestational diabetes, Chronic hypertension affecting , History of prior with pre-eclampsia , History of prior with delivery ,Previous surgery to cervix -(D&C). History OB History 2. Para 1 U2P8M1T7 Current Cell free DNA Low Risk analysis [...] EFW (oz) 5 oz EFW by: Hadlock (CBY-CJ-OU-FL) Extended Tibia 57.2 mm 33w 4d 21% Gerda [place] Lift Technician 1.4 mm Head / Face / Neck Cephalic index 0.82 64% Nicolaides Nasal bone: documented previously Extremities / Bony Struc FL / BPD 0.70 FL / HC 0.20 FL / AC 0.20 Other Structures FHR 129 bpm Anatomy The following structures appear normal: Head/Neck: Cranium. Lateral ventricles. Cavum septi pellucidi.Parenchyma. Heart/Thorax: 4-chamber view. RVOT view. LVOT view. 3-vessel view. 0-fysncf-lwcpdid view. Situs. Aortic arch view. Interventricular septum. [...] is a normal variant. Recommendations Please see [facility] recommendations from prior clinical and/or ultrasoundreport documentation. anatomic survey is incomplete due to late gestational age andsuboptimal visualization. Patient is not scheduled to return for additional ultrasound. Pleasereschedule for specific concerns or indications. The patient states medical induction of labor is schedule for 11/09/25. Subsequent follow up or other follow up as clinically determined byprimary OB provider unless otherwise specified by [facility]. Results forwarded to ordering provider so they can follow up with thepatient as necessary. Authorizing ProviderResult TypeResult StatusJean Carlos Denise MDYomaira ORDERABLES Final Result * 2nd hr Glucose Tolerance 100 gm load (08/15/2025)ComponentValueRef RangeTest MethodAnalysis TimePerformed AtPathologist SignatureGlucose Tolerance Test 2 [id number] TRANSCRIBED RESULTSSpecimen (Source)Anatomical Location / LateralityCollection Method / VolumeCollection TimeReceived TimeBloodVenous blood / Unknown Narrative Authorizing ProviderResult TypeResult StatusNot In System Ref [employer] AustraliaLAB BLOOD ORDERABLESFinal ResultPerforming OrganizationAddressCity/State/ZIP CodePhone Number MANUALLY TRANSCRIBED RESULTS * Glucose tolerance, 1 hour (08/15/2025)ComponentValueRef RangeTest Method Analysis TimePerformed AtPathologist SignatureGlucose Tolerance Test 1 Rdal729 MANUALLY TRANSCRIBED RESULTSSpecimen (Source)Anatomical Location / Laterality Collection Method / VolumeCollection TimeReceived TimeBloodVenous blood / Unknown Narrative Authorizing ProviderResult TypeResult StatusNot In System Ref [employer] AustraliaLAB BLOOD ORDERABLESFinal ResultPerforming OrganizationAddressCity/State/ZIP CodePhone Number MANUALLY TRANSCRIBED RESULTS * Glucose tolerance, 3 hours (08/15/2025)ComponentValueRef RangeTest Method Analysis TimePerformed AtPathologist SignatureGlucose Tolerance Test 3 Aefg529 MANUALLY TRANSCRIBED RESULTSSpecimen (Source)Anatomical Location / Laterality Collection Method / VolumeCollection TimeReceived TimeBloodVenous blood / Unknown Narrative Authorizing ProviderResult TypeResult StatusNot In System Ref ProvLAB BLOOD ORDERABLESFinal ResultPerforming OrganizationAddressCity/State/ZIP CodePhone Number MANUALLY TRANSCRIBED RESULTS * Glucose, tolerance fasting (08/15/2025)ComponentValueRef RangeTest Method Analysis TimePerformed AtPathologist SignatureGlucose Tolerance Test Ydudybd20 MANUALLY TRANSCRIBED RESULTSSpecimen (Source)Anatomical Location / Laterality [...] TimePerformed AtPathologist SignatureGlucose, 1 hr PP 50GM akol561 MANUALLY TRANSCRIBED RESULTSSpecimen (Source)Anatomical Location / Laterality Collection Method / VolumeCollection TimeReceived TimeBloodVenous blood / Unknown Narrative Authorizing ProviderResult TypeResult StatusNot In System Ref ProvLAB BLOOD ORDERABLESFinal ResultPerforming OrganizationAddressCity/State/ZIP CodePhone Number MANUALLY TRANSCRIBED RESULTS from Last 3 Months Insurance Care Teams Team MemberRelationshipSpecialtyStart DateEnd Date Cruz Rodríguez MD [address] [place] [address] [facility]12/02/18
--- OUTSIDE RECORDS SUMMARY | 2025-10-31 10:08 | XMS_ITS | Clinical Summary ---
Author Organization [facility] Address [address] [place] [address] Care Team Providers Care Band Presser Name Role Phone Eliceo Beltran DO Primary Care Provider [phone] Eliceo Beltran DO Unavailable [phone] Allergies No known active allergies Medications MedicationSigDispense QuantityRefillsLast FilledStart DateEnd DateStatus metoprolol succinate XL (Toprol-XL) 25 MG 24 hr tablet Indications:Hypertension, unspecified typeTake 1 tablet by mouth daily 90 tablet 5Active Vit-Fe Fumarate-FA ( Vitamins) 28-0.8 MG tablet Indications:, unspecified gestational age ([facility]),Encounter for supervision of normal first in first trimester ([facility])Take 1 tablet by mouth Daily 30 tablet 110/6Active Alcohol Swabs (Alcohol Prep Pad) 70 % pads Indications:Gestational diabetes mellitus (GDM), antepartum, gestational diabetes method of control unspecified([facility]),Elevated glucose tolerance test Apply 1 Pad topically Daily Use four times daily to check FSBS. 150 each 5Active Blood Glucose Monitoring Suppl (D-Care Glucometer) w/Device kit Indications:Gestational diabetes mellitus (GDM), antepartum, gestational diabetes method of control unspecified([facility]),Elevated glucose tolerance test1 kit Daily Use four times daily to check FSBS. In the morning prior to breakfast & 1 hour after each meal for a total of 4times daily. 1 kit 506Active insulin glargine-yfgn (Semglee-yfgn) 100 UNIT/ML pen Inject 13 Units under the skin at aseherl5309/15/2025tive labetalol (Normodyne) 200 MG tablet Indications:Gestational HypertensionTake [...] DateDiagnosed DateH/O pre-eclampsia in prior , currently ([facility])10/29/2025H/O premature ixtbonmo32 weeks gestation of ([facility])10/14/2025Third trimester ([facility])10/14/2025 Wwmcukos64/29/0418Hfmxhfqibow54/26/2024Obesity (BMI 30-39.9)02/19/2024cquired equinus deformity of foot03/29/2023isplacement of cervical intervertebral disc without qfwyybloob37/04/4898Ugsmnrwjnqzy52/04/7907Drakyiuxnnged87/04/2023 Emksucfqhzwbd91/04/9685Pactzhycjbdb69/04/2023 Assessment & Plan (07/30/2025 4:00 PM EDT): Record Blood Pressures 2-4 times weekly and record. Return with readings at next appointment. Call with readings if sees significant changes Intractable migraine without aura and with status bgrrtdisjlt65/04/2023Migraines 03/29/2023hronic pelvic pain in kbohlv7903/29/2023ain in female genitalia on yfgugengeqe83/04/2023ain on bbyzrgwslt98/04/2023anic zcvypvjb32/04/2023 Patellofemoral disorders, left knee03/29/2023atellofemoral disorders, right knee03/29/2023osterior calcaneal /04/2023Scapular dyskinesis 03/29/20236830Yyzdntfxq16/04/2023Seasonal allergic rhinitis due to zmljvd4003/29/2023 Tachycardia, /04/2023Tension rispvcbo76/04/2023Vitamin B12 yqlcyktxme06/04/2023Vitamin D ppxuywumhl55/04/2023hronic right shoulder pain 03/29/2023Estimated Date of YgauazdbZellonotQay19/03/2026ased on last menstrual period of 02/21/2025 Encounters DateTypeDepartmentCare EhbtTkfjfjoqcln26/04/2025 9:00 AM ESTRoutine [facility] [address] [place] [phone] Nathan Pop, DO Third trimester ([facility]); 35 weeks gestation of ([facility]); H/O pre-eclampsia in prior , currently ([facility]); H/O premature dybxkhcd57/04/2025Telephone [facility] [address] [place] [address] Candis Yanes LPN 10/29/2025amboo flowsheet [facility] [address] [place] [address] Nathan Pop, DO 10/26/2025Telephone [facility] [place] [facility] [address] [place] [address] Rossy Davila MA 10/25/20255422Gxfjkq38/29/2025linisync Result Encounter NOMS External Department Unsolicited Steph Keane NP 10/17/2025linisync Result Encounter NOMS External Department Unsolicited Steph Keane, DEVYN 10/16/2025External Result Encounter NOMS External Department Unsolicited Nathan Pop, 10/16/2025linisync Result Encounter NOMS External Department Unsolicited Nathan Pop, DO 10/14/2025 3:30 PM ESTRoutine [facility] [address] [place] [address] Nathan Pop, DO 33 weeks gestation of ([facility]); Third trimester ([facility])10/14/2025amboo flowsheet [facility] [address] [facility] [place] [address] Nathan Pop, DO 10/13/20256334Opdbvb56/17/2025linisync Result Encounter NOMS External Department Unsolicited Nathan Pop, DO 10/11/2025linisync Result Encounter NOMS External Department Unsolicited Nathan Pop, DO 10/09/2025bstract [facility] [place] [address] Nathan Pop, DO 10/03/2025linisync Result Encounter NOMS External Department Unsolicited Steph Keane NP 10/01/2025Telephone [facility] [address] [place] [address] [place] [address] Nathan Pop, DO 09/30/2025 3:00 PM ESTRoutine [facility] [place] [address] Nathan Pop, DO Third trimester ([facility]); 31 weeks gestation of ([facility]); Pre-eclampsia in third trimester ([facility])09/30/2025amb flowsheet [facility] [place] [facility] [address] [facility] [place] [address] Nathan Pop, DO 09/26/2025linisync Result Encounter NOMS External Department Unsolicited Steph Kenae, DEVYN 09/23/20253732Qzrlzc22/25/2025linisync Result Encounter NOMS External Department Unsolicited Steph Keane NP 09/16/2025 3:20 PM EDTRoutine [facility] [place] [address] Nathan Pop, DO 29 weeks gestation of ([facility]); Third trimester ([facility]); Hypertension affecting , antepartum ([facility]); Gestational diabetes mellitus (GDM), antepartum, gestational diabetes method of control unspecified([facility])09/16/2025[facility] flowsheet [facility] [place] [facility] [address] [facility] [place] [address] Nathna Pop, DO 09/11/2025bstract [facility] [address] [facility] [place] [address] Nathan Pop, DO 09/09/20250406Mbttoy45/09/2025 3:50 PM EDTRoutine [facility] [address] [facility] [place] [address] Steph Keane, DEVYN Hypertension affecting , antepartum ([facility]) (Primary Dx); 27 weeks gestation of ([facility]); Second trimester ([facility])09/03/2025linisync Result Encounter NOMS External Department Unsolicited Nathan Pop, DO 09/03/2025[facility] flowsheet [facility] [place] [facility] [address] [facility] [place] [phone] Steph Keane, DEVYN 09/02/20256003Bufkpp39/04/2025linisync Result Encounter NOMS External Department Unsolicited Steph Keane, DEVYN 08/28/2025bstract [facility] [place] [facility] [address] [place] [address] Eliceo Beltran DO 08/28/2025Telephone [facility] [place] [facility] [address] [facility] [place] [address] Radha Rahman MA 08/27/2025 3:20 PM EDTRoutine [facility] [place] [facility] [address] [facility] [place] [address] Steph Keane, DEVYN 26 weeks gestation of ([facility]); Second trimester ([facility]); induced hypertension, antepartum ([facility]); Gestational diabetes mellitus (GDM) in second trimester, gestational diabetes method of control unspecified ([facility])08/27/2025linisync Result Encounter NOMS External Department Unsolicited Steph Keane NP 08/27/2025linisync Result Encounter NOMS External Department Unsolicited Steph Keane, DEVYN 08/27/2025amboo flowsheet [facility] [address] [facility] [place] [address] Steph Keane NP 08/25/2025linisync Result Encounter NOMS External Department Unsolicited Provider, Generic External Data 08/20/2025bstract [facility] [address] [facility] [place] [address] Nathan Pop, DO 08/20/2025Telephone [facility] [place] [facility] [address] [facility] [place] [address] Steph Keane, DEVYN 08/17/2025bstract [facility] [address] [place] [address] Eliceo Beltran, DO 08/17/2025bstract [facility] [address] [place] [address] Eliceo Beltran, DO 08/17/2025Telephone [facility] [place] [facility] [address] [facility] [place] [address] Nathan Pop, DO 08/13/2025bstract [facility] [address] [facility] [place] [address] Nathan Pop, DO 08/12/2025 2:40 PM EDTRoutine [facility] [address] [facility] [place] [address] Nathan Pop, DO 24 weeks gestation of ([facility]); Second trimester ([facility]); Elevated glucose tolerance test08/12/2025 2:00 PM EDTAncillary Procedure [facility] [address] [facility] [place] [address] Encounter for follow-up ultrasound of anatomy ([facility])08/12/2025bstract [facility] [address] [facility] [place] [address] Nathan Pop, DO 08/12/2025bstract [facility] [address] [facility] [place] [address] Nathan Pop, DO 08/12/2025Telephone [facility] [address] [place] [address] Bill Gould LPN Xifhovx9608/12/2025bstract [facility] [address] [place] [address] Eliceo Beltran, DO 08/04/2025bstract [facility] [address] [facility] [place] [address] Nathan Pop, DO 08/04/2025Telephone [facility] [address] [place] [address] Bill Gould LPN Resultsfrom Last 3 Months Immunizations ImmunizationAdministration DatesNext DueDTP / HiB08/01/1996,1995, 1995DTaP, Qukbeyoposw96/08/2000,12/29/1997HPV, Owvaqexoywwq76/17/2014, 05/04/2014,2014Hep A, Adult09/11/2014,2014Hep B, Adolescent or Byatcecsh52/06/1996,1995,1995IPV05/03/2000Influenza, seasonal, injectable, preservative free09/11/2014MMR05/03/2000,08/01/1996Meningococcal DOG5Z3004/03/2007OPV08/01/1996,1995,1995Tdap2014 Family History Medical HistoryRelationNameCommentsAnemiaFatherColon cancerFatherCancerMaternal GrandfatherbutchHypertensionMaternal GrandfatherbutchBreast cancerMaternal GrandmotherHypertensionMotherdarleneColon cancerPaternal GrandfatherRelationName StatusCommentsFatherDeceasedMaternal GrandfatherbutchMaternal GrandmotherMother darleneAlivePaternal GrandfatherPaternal GrandmotherAlive Social History Tobacco UseTypesPacks/DayYears UsedDateSmoking Tobacco: NeverSmokeless Tobacco: Never Tobacco Cessation:Counseling Given: Not Answered Alcohol UseStandard Drinks/WeekCommentsNever0 (1 standard drink = 0.6 oz pure alcohol)caffeine: 1-2 cups per day, coffee and uyhA4056 Health LiteracyAnswer Date RecordedHow often do you [...] sexual activity by your part ner or ex-partner?No10/25/2023Social Connection and Isolation PanelAnswerDate RecordedIn a typical week, how many times do you talk on the phone with family, friends, or neighbors?More than three times a week12/29/2024How often do you get together with friends or relatives?Once a week12/29/2024How often do you attend buddhism or rastafari services?Patient ezamlyga19/03/2025Do you belong to any clubs or organizations such as buddhism groups, unions, fraternal or athletic leodan ups, or school groups?No12/29/2024How often do you attend meetings of the clubs or organizations you belong to?Patient rchytejc08/03/2025re you , , , , never , [...] Health Questionnaire-2 Score0 07/30/2025[facility] [place] [facility] - Occupational Stress QuestionnaireAnswerDate RecordedDo you feel stress - tense, restless, nervous, or anxious, or unable to sleep at night because yourmind is troubled all the time - these days?Only a lqsdjx5212/29/2024Exercise Vital SignAnswerDate Recorded On average, how many [...] the highest degree you have received?High school dcrzhibm38/29/2023 Estimated Date of HjhvfzqhBqwppgxvYad79/03/2026ased on last menstrual period of 02/21/2025Sex and Gender InformationValueDate RecordedSex Assigned at BirthNot on fileLegal YiqCpsxvv62/15/2023 7:18 PM EDTGender IdentityNot on file Sexual OrientationNot on 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 Not on fileNot on fileNot on file Last Filed Vital Signs Vital SignReadingTime TakenCommentsBlood Yaxbbket976/8212 9:33 AM EST Lfepg4535 3:36 PM WOUNjzufaphfth49.2 ??C (97.1 ??F)07/30/2025 3:36 PM EDTRespiratory Kxxg307712/23/2022 4:16 PM ESTOxygen Sqbdnqlrmh34%07/30/2025 3:36 PM EDTInhaled Oxygen Concentration--Pdfoav00.1 kg (170 lb)10/29/2025 9:33 AM EST Dgpdng334.5 cm (5' 2 )07/30/2025 3:36 PM EDTBody Mass Index31.0907/30/2025 3:36 PM EDT Plan of Treatment DateTypeDepartmentCare Team (Latest Contact Info)Dqdiovksutr90/10/2025 2:10 PM ESTRoutine [facility] [address] [facility] [place] [address] Nathan Pop, DO [address] [place] [address] Health MaintenanceDue DateLast DoneCommentsCOVID-19 Vaccine ( season) 2025Influenza Vaccine (#1)/Pap Smear08/18/2027 08/18/2024, 08/15/2023, 06/20/2022, Additional history existsCervical Cancer Cnymwirra69/09/2028HPV/Xcanyg31/neumococcal Vaccine: Pediatrics (0 to 5 Years) and At-Risk Patients (6 to 64 Years)Aged OutNo longer eligible based on patient's age to complete this topic Procedures Procedure NamePriorityDate/TimeAssociated DiagnosisCommentsPOCT URINALYSIS IDKLIHLXUydamjl04/04/2025 9:38 AM EST Third trimester ([facility]) US OB BPP W NON-QZZFBO5010/24/2025 10:38 AM EST US OB BPP W NON-WEXQLY8310/17/2025 9:22 AM EST URINE CULTURE - IWZSLfzhawj61/21/2025 1:30 PM EST [facility] UA (CLEAN/CATCH) EDUCATIONAL TECHNOLOGIST/MICRO IF IND.Dvgpdiz1810/16/2025 1:30 PM EST CULTURE, URINE, QFIPZPQPVIN50/21/2025 1:30 PM EST POCT URINALYSIS MCTDWWXDGbmhlym24/19/2025 3:40 PM EST 33 weeks gestation of ([facility]) Third trimester ([facility]) CCF LRIQDeokaky31/17/2025 8:28 PM EST [facility] PROTHROMBIN TIME INR W/O OJFMCclptas19/17/2025 8:28 PM EST ALL CUNArmuvhm31/17/2025 8:28 PM EST CCF OFWBluniqm87/17/2025 8:28 PM EST CCF QXEQazbdol64/17/2025 8:28 PM EST ALL URIC HFMKSomckqn21/17/2025 8:28 PM EST TB[facility] OIKNETUHZWXiijyho09/17/2025 8:28 PM EST ALL DNMWplkqpx41/17/2025 8:28 PM EST ALL CBC WITH AUTO HISNPvouncn61/17/2025 8:28 PM EST [facility] URINE T PROTEIN CREAT FTUTBMxalwem16/17/2025 7:05 PM EST [facility] UA (CLEAN/CATCH) EDUCATIONAL TECHNOLOGIST/MICRO IF IND.Taszfxj6210/12/2025 7:05 PM EST US OB BPP W NON-ZVVMGZ8710/11/2025 1:46 PM EST US OB BPP W NON-FWCPRR0410/03/2025 11:36 AM EST POCT URINALYSIS OSQUHOUBVdzyxau75/05/2025 3:13 PM EST Third trimester ([facility]) US OB BPP W NON-ZXYCRW7409/26/2025 2:50 PM EDT US OB BPP W NON-DAHIIP2309/19/2025 12:17 PM EDT POCT URINALYSIS HFNGTNSIVwixuqa44/22/2025 4:09 PM EDT 29 weeks gestation of ([facility]) Third trimester ([facility]) ALL CBC WITH AUTO TPTFZjjvfcb00/09/2025 5:15 PM EDT MHPT ALJTEAUUVTQvmvsmk91/09/2025 5:15 PM EDT CCF RYDNDfqknzi56/09/2025 5:15 PM EDT SRM[facility] PROTHROMBIN TIME INR W/O PYSKIkqntno30/09/2025 5:15 PM EDT CCF KRSBafsurm64/09/2025 5:15 PM EDT CCF HHXDobxalz50/09/2025 5:15 PM EDT ALL URIC NXZMGslqvrg73/09/2025 5:15 PM EDT TB[facility] ERKPEFWPWSFnpikdm85/09/2025 5:15 PM EDT ALL OSEYahzfis77/09/2025 5:15 PM EDT [facility] URINE T PROTEIN CREAT BNOREFrkzoru17/09/2025 5:05 PM EDT POCT URINALYSIS NITINRSYJfbdmbl72/09/2025 4:26 PM EDT 27 weeks gestation of ([facility]) TB[facility] TOTAL PROTEIN 24 HOUR KYOBNXtngmkh82/04/2025 8:00 AM EDT US OB BPP W NON-BYLTAX0308/27/2025 6:02 PM EDT TB[facility] URINE T PROTEIN CREAT CYJHUZudvrpn00/02/2025 5:50 PM EDT CCF ECMKmoaojq13/02/2025 5:00 PM EDT CCF IJABJlryxmv42/02/2025 5:00 PM EDT [facility] PROTHROMBIN TIME INR W/O LUVJChwkxnw17/02/2025 5:00 PM EDT ALL BPYOtivzuw23/02/2025 5:00 PM EDT CCF UQGOajpoxv95/02/2025 5:00 PM EDT ALL URIC CICOKegdham00/02/2025 5:00 PM EDT TB[facility] LOUJOSVVVAOvfapdk39/02/2025 5:00 PM EDT ALL FPHPdcitxj18/02/2025 5:00 PM EDT ALL CBC WITH AUTO IXQCVaihuue27/02/2025 5:00 PM EDT POCT URINALYSIS QZRAYZYNSbxxbdw75/02/2025 3:53 PM EDT 26 weeks gestation of ([facility]) URINE CULTURE, HVZQJIDKxbopew76/30/2025 8:10 AM EDT POCT URINALYSIS WVHNXILTMakwpiu56/17/2025 2:39 PM EDT 24 weeks gestation of ([facility]) Second trimester ([facility]) US OB LIMITED 1+ UMFFZLGYujmmsb70/17/2025 2:22 PM EDT Encounter for follow-up ultrasound of anatomy ([facility]) PAP DJSCQBuqxqge15/23/2024 12:00 AM EDTTHINPREP PAP AND HPV MRNA E6/E7 W/RFL HPV 16,18/83Dlubpax66/09/2023 4:00 PM EDT Well woman exam with [...] Location / LateralityCollection Method / VolumeCollection TimeReceived XxdqVwtbu97/04/2025 9:38 AM EST Narrative Authorizing ProviderResult TypeResult StatusCorey Kiesha DOPOINT OF CARE TEST ENTER/EDIT ORDERABLESFinal Result * US OB BPP W NON-STRESS (10/24/2025 10:38 AM EST) Only the most recent of7 resultswithin the time period is included. Anatomical RegionLateralityModalityOtherSpecimen (Source)Anatomical Location / LateralityCollection Method / VolumeCollection TimeReceived Time10/24/2025 10:38 AM EST Narrative 10/24/2025 10:40 AM EST [facility] ?[address] ? [place] [address] ? Ultrasound Report ? Signed ? Patient: MCCONEGLY,DRISS M ?MR#: [id number] ?? : 1995 ?Acct:[id number] ?? Age/Sex: 30 / F ?ADM Date: 11/29/25 ?? Loc: [facility] ??250-1 ? Attending Dr: Steph Keane ? Ordering Physician: Steph Keane ?? Date of Service: 10/24/25 ?? Procedure(s): US OB BPP w non-stress ?? Accession Number(s): [id number] ? cc: Steph Keane; Yomaira BELTRAN ? [facility] ? [address] ? [place] [address] ? Patient Name: ?? DRISS GAMA ? MRN: [facility]:[id number] ? date: 1995 ?Sex: F ?? Assigned Patient Location: US ?? Current Patient Location: US ?? Accession/Order Number: [id number] ?? Exam Date: 10/24/2025 ??10:08 ?Report Date: [...] w non-stress ?? IMPRESSION: ? Biophysical profile: 88 ? Incidental note is made of a nuchal cord. ? Impression dictated by: Will Faria M.D. ??10/24/2025 10:38 AM ? Dictation Location: RADIO-PC-17 ? Electronically authenticated by: [id number] ??Y ?? Date: 10/24/2025 ??10:38 ? Dictated By: ?Will Faria M.D. ? Signed By: ?10/24/ 1040 ? DD/ 1038 ? TD/TT: ? Kettle Cleaner: Procedure Note Radiology, Radiologist, - 10/24/2025 [place] [address] Ultrasound Report Signed Patient: DRISS GAMA MMR#: [id number] : 1995Acct:[id number] Age/Sex: 30 / FADM Date: 10/24/25 Loc: [facility] 250-[address]: Steph Keane Ordering Physician: Steph Keane Date of Service: 10/24/25 Procedure(s): US OB BPP w non-stress Accession Number(s): [id number] cc: Steph Keane; Yomaira BELTRAN [place] [address] Patient Name: DRISS GAMA MRN: [facility]:[id number] date: 1995 Sex: F Assigned Patient Location: Current Patient Location: Accession/Order Number: [id number] Exam Date: 10/24/2025 10:08 Report Date: 10/24/2025 [...] Faria M.D. 10/24/2025 10:38 AM Dictation Location: [place] [address] Electronically authenticated by: [id number] Y Date: 0:38 Dictated By: Will Faria M.D. Signed By:10/24/25 1040 DD/ 1038 TD/TT: Kettle Cleaner: Authorizing ProviderResult TypeResult StatusSteph Keane NPCLINISYNC IMAGING [...] CLINISYNC [facility] * (ABNORMAL) [facility] UA (CLEAN/CATCH) EDUCATIONAL TECHNOLOGIST/MICRO IF IND. (10/16/2025 1:30 PM EST) Only [...] Kiesha DOCLINISYNCFinal Result Performing OrganizationAddressty/State/ZIP CodePhone Number CLINISYCO [facility] * Urine culture (10/16/2025 1:30 PM EST)ComponentValueRef RangeTest Method Analysis TimePerformed AtPathologist SignatureFR NOTE?20,000 colonies/ml mixed ?bacterial skin contaminants ?2 Days 10/18/2025 10:10 AM [facility] CtrSpecimen (Source)Anatomical Location / LateralityCollection Method / VolumeCollection TimeReceived Time Clean-Voided Midstream (Clean Void Midstream)10/16/2025 1:30 PM EST10/16/2025 4:19 PM EST Narrative [facility] - 10/18/2025 10:10 AM EST Diagnosis: HIGH BLOOD PRESSURE Comment: Authorizing ProviderResult TypeResult StatusCorey Kiesha DOLAB MICROBIOLOGY - GENERAL ORDERABLESFinal ResultPerforming OrganizationAddWell[facility]/ZIP Code Phone Number [facility] [address] [place] [address], [facility] [address] [place] [address] * [facility] CREATININE (10/12/2025 8:28 PM EST) Only the most recent of3 resultswithin the time period is included. ComponentValueRef RangeTest MethodAnalysis TimePerformed AtPathologist Signature CREATININE0.740.55 - 1.02 mg/dLTBHTBH EGFR-AF ITALIAN>60>=60 mL/min/1.73m 2TBH TBH EGFR-NON AF ITALIAN>60>=60 mL/min/1.73m 2TBHSpecimen (Source)Anatomical Location / LateralityCollection Method / VolumeCollection TimeReceived Time 10/12/2025 8:28 PM EST10/12/2025 8:39 PM EST Narrative CLINISYNC - 10/12/2025 8:59 PM EST Authorizing ProviderResult TypeResult StatusCorey Kiesha DOCLINISYNCFinal Result Performing OrganizationAddressCity/State/ZIP CodePhone Number [facility] * SRMCO[facility] PROTHROMBIN TIME INR W/O COUM [...] Kiesha DOCLINISYNCFinal Result Performing OrganizationAddressCity/State/ZIP CodePhone Number [facility] * CCF AST (10/12/2025 8:28 PM EST) Only the most recent of3 resultswithin the time period is included. ComponentValueRef RangeTest MethodAnalysis TimePerformed AtPathologist Signature ASPARTATE AMINO [id number] - 37 U/LTBHSpecimen (Source)Anatomical Location / LateralityCollection [...] ComponentValueRef RangeTest MethodAnalysis TimePerformed AtPathologist Signature ALANINE RXSTENJPDTZKVMGQ3353 - 59 U/LTBHSpecimen (Source)Anatomical Location / LateralityCollection Method / VolumeCollection TimeReceived Time10/12/2025 8:28 PM EST10/12/2025 8:39 PM EST Narrative CLINISYNC - 10/12/2025 8:59 PM EST Authorizing ProviderResult TypeResult StatusCorey Kiesha DOCLINISYNCFinal Result Performing OrganizationAddChan [facility]/State/ZIP CodePhone Number CLINISYNC TB * ALL URIC [...] ComponentValueRef RangeTest MethodAnalysis TimePerformed AtPathologist Signature LACTATE [id number] - 234 U/LTBHSpecimen (Source)Anatomical Location / LateralityCollection Method / VolumeCollection TimeReceived Time10/12/2025 8:28 PM EST10/12/2025 8:39 PM EST Narrative CLINISYNC - 10/12/2025 8:59 PM EST Authorizing ProviderResult TypeResult StatusCorey Kiesha DOCLINISYNCFinal Result Performing OrganizationAddressCity/State/ZIP CodePhone Number TRICIANC TB * (ABNORMAL) ALL CBC WITH AUTO [...] - 35.2 g/dLTBHTBH RDW13.211.0 - 15.0 %TBHTBH [id number] - 450 10 3/uLTBHTBH MPV9.69.5 - 13.5 [...] RangeTest MethodAnalysis TimePerformed AtPathologist Signature BLOOD UREA XYNYCHQO72.07.0 - 18.0 mg/dLTBHSpecimen (Source)Anatomical Location / LateralityCollection [...] MethodAnalysis TimePerformed AtPathologist Signature TOTAL PROTEIN URINE YBVJRK88.5(H)<=11.9 mg/dLTBHCREATININE URINE OEAKLH01.21 20.00 - 300.00 mg/dLTBHPROTEIN CREATININE RATIO URINE0.16TBHSpecimen (Source) Anatomical Location / LateralityCollection Method / VolumeCollection Time Received Time10/12/2025 7:05 PM EST10/12/2025 10:30 PM EST Narrative CLINISYNC - 10/12/2025 10:40 PM EST Authorizing ProviderResult TypeResult StatusCorey Kiesha DOCLINISYNCFinal Result Performing OrganizationAddressCity/State/ZIP CodePhone Number CLINISYNC [facility] * (ABNORMAL) MHPT FIBRINOGEN (09/03/2025 5:15 PM EDT)ComponentValueRef RangeTest MethodAnalysis TimePerformed AtPathologist NtyftcyelEHULWCAUYJ429(H)200 - 400 mg/dLTBHSpecimen (Source)Anatomical Location / LateralityCollection Method / VolumeCollection TimeReceived Time09/03/2025 5:15 PM EDT1 5:21 PM EDT Narrative CLINISYNC - 09/03/2025 5:45 PM EDT Authorizing ProviderResult TypeResult StatusCorey Kiesha DOCLINISYNCFinal Result Performing OrganizationAddressCity/State/ZIP CodePhone Number TRICIANC [facility] * (ABNORMAL) [facility] TOTAL PROTEIN 24 HOUR URINE (08/29/2025 8:00 AM EDT)Component ValueRef RangeTest MethodAnalysis TimePerformed AtPathologist SignatureTOTAL PROTEIN URINE YSAPOH60.6(H)<=11.9 mg/dLTBHTOTAL VOLUME 24 HOUR KQVRR103gT/24hr TBHTBH TOTAL PROTEIN 24 HOUR RNFAE764.6<=149.1 mg/24hrTBHSpecimen (Source) Anatomical Location / LateralityCollection Method / VolumeCollection Time Received Time08/29/2025 8:00 AM EDT1 10:35 AM EDT Narrative CLINISYNC - 08/29/2025 12:08 PM EDT Authorizing ProviderResult TypeResult StatusGeneric External Data Provider CLINISYNCFinal ResultPerforming OrganizationAddressCity/State/ZIP CodePhone Number MATTHEWISYNC [facility] * URINE CULTURE, ROUTINE (08/25/2025 8:10 AM EDT)ComponentValueRef RangeTest MethodAnalysis TimePerformed AtPathologist SignatureURINE CULTURE, ROUTINE ??Urine Culture, Routine TBHURINE CULTURE, ROUTINEMixed urogenital floraTBHURINE CULTURE, JAIAVST81,000- 50,000 colony forming units per mLTBHURINE CULTURE, ROUTINEPerformed at: - [facility] hospital[facility], [id number] [place], [place] [id number] URINE CULTURE, ROUTINELab Director: Cm Sandoval PhD, Phone: [phone] Specimen (Source)Anatomical Location / LateralityCollection Method / Volume Collection TimeReceived Time08/25/2025 8:10 AM EDT08/25/2025 8:30 AM EDT Narrative JENNIFER - 08/26/2025 10:07 PM EDT Authorizing ProviderResult TypeResult StatusGeneric External Data ProviderLAB BLOOD ORDERABLESFinal ResultPerforming OrganizationAddressCity/State/ZIP Code Phone Number [facility] * US OB limited 1+ fetuses [...] PM EDT) Narrative Authorizing ProviderResult TypeResult StatusAmy [place] PALAB BLOOD ORDERABLES Final ResultPerforming OrganizationAddressCity/State/ZIP CodePhone Number EXTERNAL LAB from Last 3 Months or Most Recently Relevant to Health Maintenance Insurance Care Teams Team MemberRelationshipSpecialtyStart DateEnd Date Eliceo Beltran DO [address] [place] [address] PCP - GeneralFamily Medicine02/14/24 Eliceo Beltran DO [address] [place] [address] PCP - Medical [place] [employer]/
--- OUTSIDE RECORDS SUMMARY | 2025-10-31 10:08 | XMS_ITS | Encounter Summary ---
Author Organization [facility] Address [address] [place] [address] Care Team Providers Care Workers Compensation Claims Adjuster Name Role Phone NirajEliceo kauffman Primary Care Provider [phone] CharlottecarolEliceo Bryant DAY Unavailable [phone] Encounter Details DateTypeDepartmentCare Team (Latest Contact Info)Zndhhzzopiw45/21/2025External Result Encounter [facility] External Department Unsolicited Nathan Pop DO [address] [place] [address] Social History Tobacco UseTypesPacks/DayYears UsedDateSmoking Tobacco: NeverSmokeless Tobacco: NeverAlcohol UseStandard Drinks/WeekCommentsNever0 (1 standard drink = 0.6 oz pure alcohol)caffeine: 1-2 cups per day, coffee and [id number] Health Literacy AnswerDate RecordedHow often do you [...] week12/29/2024How often do you attend shinto or alevism services?Patient wspzkmli32/03/2025Do you belong to any clubs or organizations such as shinto groups, unions, fraDirectMoney or athletic leodan ups, or school groups?No12/29/2024How [...] Health Questionnaire-2 Score0 07/30/2025[facility] [place] of Occupational Health - Occupational Stress QuestionnaireAnswerDate RecordedDo you feel stress - tense, restless, nervous, or anxious, or unable to sleep at night because yourmind is troubled all the time - these days?Only a juskmo7512/29/2024Exercise Vital SignAnswerDate Recorded On average, how many [...] to sleep or slept in [facility] (including now)?No09/19/2023Housing Stability Vital SignAnswerDate [...] the highest degree you have received?High school iotuawfu41/29/2023 Estimated Date of DxrmmikyRuemeohlOuq84/03/2026ased on last menstrual period of 02/21/2025Sex and Gender InformationValueDate RecordedSex Assigned at BirthNot on fileLegal WjaXnccsx27/15/2023 7:18 PM EDTGender IdentityNot on file Sexual OrientationNot on 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 Not on fileNot on fileNot on filedocumented as of this encounter Plan of Treatment DateTypeDepartmentCare Team (Latest Contact Info)Zncbhchwiob72/10/2025 2:10 PM ESTRoutine [facility] [place] [facility] [address] [place] [address] Nathan Pop DO [address] [place] [address] documented as of this encounter Procedures Procedure NamePriorityDate/TimeAssociated DiagnosisCommentsCULTURE, URINE, LUGTWWAGWDW72/21/2025 1:30 PM EST documented in this encounter Results * Urine culture (10/16/2025 1:30 PM EST)ComponentValueRef RangeTest Method Analysis TimePerformed AtPathologist SignatureHASKELL COUNTY [facility] NOTE?20,000 colonies/ml mixed ?bacterial skin contaminants ?2 Days 10/18/2025 10:10 AM [facility] CtrSpecimen (Source)Anatomical Location / LateralityCollection Method / VolumeCollection TimeReceived Time Clean-Voided Midstream (Clean Void Midstream)10/16/2025 1:30 PM EST10/16/2025 4:19 PM EST Narrative [facility] - 10/18/2025 10:10 AM EST Diagnosis: HIGH BLOOD PRESSURE Comment: Authorizing ProviderResult TypeResult StatusCorey Kiesha DOLAB MICROBIOLOGY - GENERAL ORDERABLESFinal ResultPerforming OrganizationAddressCity/State/ZIP Code Phone Number [facility] [address] [place] [address], [facility] [address] [facility] [place] [address] documented in this encounter Visit Diagnoses Not on filedocumented in this encounter Care Teams Team MemberRelationshipSpecialtyStart DateEnd Date Eliceo Beltran DO [address] [place] [address] PCP - GeneralFamily Medicine02/14/24 Eliceo Beltran DO [address] [place] [address] PCP - Medical [place] [employer]07/27/2412documented as of this encounter
--- OUTSIDE RECORDS SUMMARY | 2025-10-31 10:08 | XMS_ITS | Encounter Summary ---
Author Organization [facility] tem Address [id number] [place] [address] Care Team Providers Care Pressfitter Name Role Phone Cruz Rodríguez MD Primary Care Provider [phone] Encounter Details DateTypeDepartmentCare Team (Latest Contact Info)Xzevkktpxdx50/25/2025Orders Only Maternal- Medicine at [facility] [address] [place] [id number] Kayleigh Rizzo, PAAlbinC [address] [address] Essential hypertension affecting in third trimester Social [...] or more drinks on one occasion?Never5ChildcareAnswer Date DboxnukiWksljoknfYsqamfh27/13/2019EmploymentAnswerDate RecordedEmployment Auhdqgk5105/08/2019Hunger ScreeningAnswerDate RecordedWithin the past 12 months we worried whether our food would run out before we got money to buy more.Never True09/10/2025Within the past 12 months the food we bought just didn't last and we didn't have money to get more.Never True09/10/2025Purpose - LifeAnswerDate RecordedPurpose and direction in hgfrKvppoby22/11/2021Estimated Date of QvsibridDgkidrzyKmb77/03/2026Based on last menstrual period of 02/21/2025 (Exact Date)Sex and Gender InformationValueDate RecordedSex Assigned at BirthNot on fileLegal AvkJzpaeh62/07/2019 2:55 PM ESTGender IdentityNot on fileSexual OrientationNot on filedocumented as of this encounter Plan of Treatment DateTypeDepartmentCare Team (Latest Contact Info)Firymguatmg96/09/2025 2:30 PM ESTOffice Visit Maternal- Medicine at [facility] [address] [place] [address] Kayleigh Rizzo PA-C [address] [address] documented as of this encounter Visit Diagnoses Diagnosis Essential hypertension affecting in third trimester documented in this encounter Care Teams Team MemberRelationshipSpecialtyStart DateEnd Date Cruz Rodríguez MD [address] [place] [address] PCP - GeneralFamily Medicine12/02/18documented as of this encounter
--- OUTSIDE RECORDS SUMMARY | 2025-10-31 10:08 | XMS_ITS | Encounter Summary ---
Author Organization [facility] Address [address] [place] [address] Care Team Providers Care Timber Sprinkler Name Role Phone Eliceo Beltran Primary Care Provider [phone] CharlottegeovaniEliceo kauffman Unavailable [phone] Encounter Details DateTypeDepartmentCare Team (Latest Contact Info)Zewbitahqil57/22/2025Clinisync Result Encounter [facility] External Department Unsolicited Steph Keane, DEVYN [address] [facility] [place] [address] Social History Tobacco UseTypesPacks/DayYears UsedDateSmoking Tobacco: NeverSmokeless Tobacco: NeverAlcohol UseStandard Drinks/WeekCommentsNever0 (1 standard drink = 0.6 oz pure alcohol)caffeine: 1-2 cups per day, coffee and nheR9851 Health Literacy AnswerDate RecordedHow often do you [...] week12/29/2024How often do you attend nondenominational or adventist services?Patient raelcwjc87/03/2025Do you belong to any clubs or organizations such as nondenominational groups, unions, [employer] or athletic leodan ups, or school groups?No12/29/2024How often do you attend meetings of the clubs or organizations you belong to?Patient nzqxgagx39/03/2025re you , , , , never , [...] all12/29/2024PHQ-2AnswerDate RecordedPatient Health Questionnaire-2 Score0 07/30/2025[facility] [place] of Occupational Health - Occupational Stress QuestionnaireAnswerDate RecordedDo you feel stress - tense, restless, nervous, or anxious, or unable to sleep at night because yourmind is troubled all the time - these days?Only a ndhzll9612/29/2024Exercise Vital SignAnswerDate Recorded On average, how many [...] steady place to sleep or slept in [facility] (including now)?No09/19/2023Housing Stability Vital SignAnswerDate [...] the highest degree you have received?High school ojnyovvp31/29/2023 Estimated Date of BaydzltsPjupliwjFda53/03/2026ased on last menstrual period of 02/21/2025Sex and Gender InformationValueDate RecordedSex Assigned at BirthNot on fileLegal GwgZigggu52/15/2023 7:18 PM EDTGender IdentityNot on file Sexual OrientationNot on 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 Not on fileNot on fileNot on filedocumented as of this encounter Plan of Treatment DateTypeDepartmentCare Team (Latest Contact Info)Tuxirotvjxo45/10/2025 2:10 PM ESTRoutine [facility] [place] [facility] [address] [place] [phone] Nathan Pop, DO [address] [place] [address] documented as of this encounter Procedures Procedure NamePriorityDate/TimeAssociated DiagnosisCommentsUS OB BPP W NON-KLVJAR5010/17/2025 9:22 AM EST documented in this encounter Results * US OB BPP W NON-STRESS (10/17/2025 9:22 AM EST)Anatomical Region LateralityModalityOtherSpecimen (Source)Anatomical Location / Laterality Collection Method / VolumeCollection TimeReceived Time10/17/2025 9:22 AM EST Narrative 10/17/2025 9:25 AM EST [facility] ?[address] ? [place] [address] ? Ultrasound Report ? Signed ? Patient: DRISS GAMA ?MR#: [id number] ?? : 1995 ?Acct:[id number] ?? Age/Sex: 30 / F ?ADM Date: 10/17/25 ?? Loc: US ? Attending Dr: Steph Keane ? Ordering Physician: Steph Keane ?? Date of Service: 10/17/25 ?? Procedure(s): US OB BPP w non-stress ?? Accession Number(s): [id number] ? cc: Steph Keane; Yomaira BELTRAN ? [facility] ? [address] ? [place] [address] ? Patient Name: ?? DRISS Daniel GAMA ? MRN: [id number] ? date: 1995 ?Sex: F ?? Assigned Patient Location: [facility] ?? Current Patient Location: ? Accession/Order Number: [id number] ?? Exam Date: 10/17/2025 ??08:11 ?Report Date: 10/17/2025 ??09:22 ? At the request of: ?? STEPH ??LAKHWINDER ? Procedure: ??US OB BPP w non-stress ? Biophysical profile. ? Reason for exam: Gestational diabetes ? COMPARISON: 10/10/2025 ? TECHNIQUE: Transabdominal imaging of the gravid uterus was obtained. ? FINDINGS: The hospital unit coordinator reports a BPP of 8 out of [...] Dictation Location: RADIO-PC-18 ? Electronically authenticated by: [id number] ??Y ?? Date: 10/17/2025 ??09:22 ? Dictated By: ?Junito Mcgrath M.D. ? Signed By: ?10/17/25924 ? DD/ 1 ? TD/TT: ? Chicken Catcher: Procedure Note Radiology, Radiologist, - 10/17/2025 [place] [address] Ultrasound Report Signed Patient: DRISS GAMA MMR#: [id number] : 1995Acct:[id number] Age/Sex: 30 / FADM Date: 10/17/25 Loc: US Attending Dr: Steph Keane Ordering Physician: Steph Keane Date of Service: 10/17/25 Procedure(s): US OB BPP w non-stress Accession Number(s): [id number] cc: Steph Keane; Yomaira BELTRAN [address] [address] Patient Name: DRISS GAMA MRN: [id number] date: 1995 Sex: F Assigned Patient Location: [facility] Current Patient Location: Accession/Order Number: [id number] Exam Date: 10/17/2025 08:11 Report Date: 10/17/2025 09:22 At the request of: STEPH KEANE Procedure: US OB BPP w non-stress Biophysical profile. Reason for exam: Gestational diabetes COMPARISON: 10/10/2025 TECHNIQUE: Transabdominal imaging of the gravid uterus was obtained. FINDINGS: The hospital unit coordinator reports a BPP of 8 out of 8. LEONEL is normal at13.2 cm. heart rate 144 bpm. Nuchal cord is present. US/US OB BPP w non-stress IMPRESSION: BPP 8 out of 8. Nuchal cord is present. This was reported to the nurse by the systems technologist. Impression dictated by: Junito Mcgrath Jr., D.O. 10/17/2025 9:22 AM Dictation Location: [employer] Electronically authenticated by: [id number] Y Date: 9:22 Dictated By: Junito Mcgrath M.D. Signed By:10/17/25924 DD/ 1 TD/TT: Chicken Catcher: Authorizing ProviderResult TypeResult StatusKrnemours foundationa Lakhwinder NPCLINISYNC IMAGING Final Result documented in this encounter Visit Diagnoses Not on filedocumented in this encounter Care Teams Team MemberRelationshipSpecialtyStart DateEnd Date Eliceo Beltran DO [address] [place] [address] PCP - GeneralFami Medicine02/14/24 Eliceo Beltran DO [address] [place] [address] PCP - Medical [place] [employer]07/27/2412documented as of this encounter
--- OUTSIDE RECORDS SUMMARY | 2025-10-31 10:09 | XMS_ITS | CCD ---
Author Organization [facility] Care Team Providers Care Transformation Specialist Name Role Phone Unavailable Unavailable POCOPAL QUINTEROS Referring Unavailable DENNY RODRÍGUEZ Primary Care Unavailable OPAL LARA Referring Unavailable DENNY RODÍRGUEZ Primary Care Unavailable DENNY RODRÍGUEZ Primary Care Physician Domo Hodges Unavailable PAOLO DIALLO Attending Unavailable KATHE RYDER Admitting Unavailable KATHE RYDER Attending Unavailable Denny Rodríguez MD Primary Care Provider [phone] Denny Rodríguez MD Unavailable Denny Rodríguez MD Primary Care Provider Denny Rodríguez MD Unavailable [phone] Kita ARTIFICIAL LEATHER CALENDER OPERATOR, Zenobia Unavailable Keesha ARTIFICIAL LEATHER CALENDER OPERATOR, Trista R Unavailable Denny Rodríguez MD Primary [...] Unavailab Denny Ross MD Primary Care Provider [phone] Kiesha DO, Nathan Attending Provider Kiesha, Nathan Admitting Unavailable Kiesha, Nathan Attending Unavailable Dickson Rodríguezian Primary Care Unavailable KIESHA, Nathan R Attending Unavailable KIESHA, Nathan R Referring Unavailable KIESHA, Nathan R Admitting Unavailable KIESHA, Nathan R Attending Unavailable KIESHA, Nathan R Admitting Unavailable Kaftan DO Eliceo R Unavailable [phone] Yomaira BELTRAN Attending Unavailable KAFTAN, G [...] Unavailable Denny Rodríguez MD Primary Care Provider [phone] Denny Rodríguez MD Unavailable Kita ARTIFICIAL LEATHER CALENDER OPERATOR, Zenobia Unavailable Keesha ARTIFICIAL LEATHER CALENDER OPERATOR, Trista R Unavailable [phone] ELICEO BELTRAN Attending Unavailable KIESHA, NATHAN Attending [...] Medication Allergies]Propensity to adverse reactions (disorder)[facility] Medications Current Medications MedicationDrug Class(es)DatesSig (Normalized)Sig (Original)acetaminophen 325 mg / butalbital 50 mg / caffeine 40 mg oral tablet (14 sources)Barbiturate, Central Nervous System Stimulant, MethylxanthineStart: 02-19-2024 End: 45-99-5141safk 1 tablet by mouth every six hours for headache eykecpmemz-fnozfbmpexaki-mqhdlbij 50-325-40 MG tablet Indications: Other migraine without status migrainosus, not intractable Take 1 tablet by mouth every 6 (six) hours if needed for headaches 20 tablet 02/19/2024 05/01/2025 Discontinuedatenolol 25 mg oral tablet (4 sources)beta-Adrenergic BlockerStart: 96-78-8793jmmv 1 mg by mouth once daily atenolol 25 mg Tab mg tab(s), Oral, Daily, Refills(s) 0 Start Date: 02/02/21 Status: OrderedStart: 08-06-2017 End: 49-06-0447ehbb 1 tablet by mouth once dailyAtenolol 50 mg tablet Discontinued 50 MG PO Daily August 06, 2017 12:00am October 16, 2018 3 :34pmbaclofen suppository 10 mg (CPD) (8 sources)Start: 87-49-3855kvhrqbee suppository 10 mg (CPD) Indications: High- tone pelvic floor dysfunction , Chronic pelvic pain in female Unwrap and insert one suppository vaginally daily at bedtime. 30 Suppository 2 08/24/2023 Active Comment on above:Unwrap and insert one suppository vaginally daily at bedtime. Blood Glucose Monitoring Suppl (D-Care Glucometer) w/Device kit (20 sources)Start: 08-20-2025 End: 77-26-4636Xekkr Glucose Monitoring Suppl (D-Care Glucometer) w/Device kit Indications: Gestational diabetes mellitus (GDM), antepartum, gestational diabetes method of control unspecified ([facility]) , Elevated glucose tolerance test 1 kit Daily Use four times daily to check FSBS. In the morning prior to breakfast & 1 hour after each meal for a total of 4times daily. 1 kit 08/20/2025 08/20/2026 Activecephalexin 500 mg oral capsule (6 sources)Cephalosporin AntibacterialStart: 02-14-2021 End: 89-86-9270ilxr 1 capsule by mouth every twelve hoursKeflex 500 mg Cap 500 mg = 1 cap(s), Oral, q12hr, X 7 day(s), # 14 cap(s), Refills(s) 0 Start Date: 07/14/22 Stop Date: 07/21/22 Status: OrderedStart: 03-14-2019 End: 89-34-1678sbyh 1 capsule by mouth every twelve hoursCephalexin (Keflex) 500 mg capsule Discontinued 500 MG PO Q12H 14 March 14, 2019 12:00am August 04, 2019 8:18amcyclobenzaprine hydrochloride 5 mg oral tablet (20 sources)Muscle RelaxantStart: 12-30-2024 End: 22-33-1670spkb 1 tablet by mouth in the morning, [...] 30 tablet 12/30/2024 01/09/2025 ActiveStart: 05-01-2023 End: 64-72-8185jkdd 1 tablet by mouth at bedtime as neededcyclobenzaprine (FLEXERIL) 5 mg tablet Indications: Dysmenorrhea , Chronic pelvic pain in female Take 1 tablet by mouth at bedtime as needed. 30 tablet 1 05/01/2023 ActiveStart: 52-17-2917bsfo 1 tablet by mouth three times daily as needed for muscle spasms cyclobenzaprine 10 mg Tab 10 mg = 1 tab(s), Oral, TID, PRN for spasm, # 30 tab(s), Refills(s) 0, Pharmacy: [facility] 858, 157, cm, 01/23/22 7:20:00 EST, Height/Length Dosing, 55, kg, 01/23/22 7:20:00 EST, Weight Dosing Start Date: 01/23/22 Status: Ordered Quantity: 30.0 Unit: tab(s) Repeat number: 1 Comment on above:Take 1 tablet by mouth at bedtime as needed.cyproheptadine hydrochloride 4 mg oral tablet (10 sources)Start: 40-38-0116dvgh 1 mg by mouth three times dailycyproheptadine 4 mg Tab mg tab(s), Oral, TID, Refills(s) 0 Start Date: 02/02/21 Status: Ordered Repeat number: 1Dasetta oral tablet (1 source)Start: 09-03-5854zpfq 1 tablet by mouth once dailyDasetta oral tablet 1 tab(s), Oral, Daily, Refill(s) 0, control/menstrual regulation Start Date: 11/23/16 Status: Ordereddocusate sodium 100 mg oral capsule (7 sources)Start: 11-30-2022 End: 69-98-0648kqyn 1 capsule by mouth twice daily as needed for constipation Docusate Sodium (DSS) 100 MG capsule Take 1 capsule (100 mg) by mouth 2 times daily as needed for constipation (Vaginal Delivery) for up to 10 days. 60 capsule 0 12/01/2022 12/31/2022 ActiveStart: 07-14-2022 End: 16-57-4100pyws 1 capsule by mouth twice dailyColace 100 mg Cap 100 mg = 1 cap(s), Oral, BID, X 10 day(s), # 20 cap(s), Refills(s) 0 Start Date: 07/14/22 Stop Date: 07/24/22 Status: Orderedelagolix 150 mg oral tablet (13 sources)Start: 07-16-2023 End: 63-98-2634jsnd 1 tablet by mouth once dailyelagolix (ORILISSA) 150 mg tablet Take 1 tablet (150 mg) by mouth once daily. 30 tablet 11 07/16/2023 07/15/2024 ActiveStart: 31-78-9991ejyt 1 tablet by mouth twice dailyOrilissa 200 MG Oral Tablet take 1 tablet by mouth twice a day Quantity: 60 Refills: 4 Ordered: 09-Feb-2022 Charlene Rodriguez DO Start : 09-Feb-2022 ActiveComment on above:Take 1 tablet (150 mg) by mouth once daily.ergocalciferol 0.05 mg oral capsule (1 source)Provitamin D2 CompoundStart: 49-54-4593Akfskxj D2 2000 intl units oral capsule Oral, Daily, Refills(s) 0 Start Date: 02/02/21 Status: OrderedEthinyl Estradiol / Levonorgestrel (8 sources)Progestin, Estrogen, Progestin-containing Intrauterine DeviceStart: 04-03-2024 End: 08-32-3333jeowaathcnsiwk-ethinyl estradiol (Jolessa) 0.15-0.03 MG tablet Indications: Uses control TAKE1 TABLET BY MOUTH EVERY MORNING 91 tablet 3 04/03/2024 08/18/2024 Discontinued (Other)Start: 61-32-6883dvzwuzerxzfstq- ethinyl estradiol (Jolessa) 0.15-0.03 MG tablet Indications: Uses control TAKE1 TABLET BY MOUTH EVERY MORNING 91 tablet 3 04/03/2024 ActiveStart: 01-10-2024 End: 47-48-9577zhgp 1 tablet by mouth in the morning, then take 1 tablet by mouth once dailylevonorgestrel-ethinyl estradiol (Jolessa) 0.15-0.03 MG tablet Indications: Uses control Take1 tablet by mouth in the morning. Take 1 tablet by mouth daily. 90 tablet 0 01/10/2024 04/09/2024 Activeethinyl estradiol 0.035 mg / norgestimate 0.25 mg oral tablet (4 sources)Progestin, EstrogenStart: 07-77-8383omcottxhqwyv-ethinyl estradiol (Ortho-Cyclen) 0.25-35 MG-MCG tablet 1 (one) time each day at the same time. 0 01/15/2023 ActiveStart: 94-76-8037ejyt 1 tablet by mouth once dailyNorgestimate- Ethinyl Estradiol 0.25-35 mg-mcg tablet Active 1 TAB PO Daily August 04, 2019 12:00amMono-Linyah 0.25-35 MG-MCG Oral for 28 Not-TakinghydrOXYzine hydrochloride 25 mg oral tablet (10 sources)AntihistamineStart: 30-36-4524xdgg 1 mg by mouth four times daily hydrOXYzine hydrochloride 25 mg Tab mg tab(s), Oral, QID, Refills(s) 0 Start Date: 02/02/21 Status: Ordered Repeat number: 1hyoscyamine sulfate 0.125 mg oral tablet (10 sources)Start: 12-73-8054tzdb 1 tablet by mouth every six hoursLevsin 0.125 mg SL Tab 0.125 mg = 1 tab(s), Oral, q6hr, # 20 tab(s), Refills(s) 1, Pharmacy: [facility], 161, cm, 03/10/21 11:21:00 EDT, Height/Length Dosing, 56, kg, 03/10/21 11:21:00 EDT, Weight Dosing Start Date: 03/10/21 Status: Ordered Quantity: 20.0 Unit: tab(s) Repeat number: 2ibuprofen 600 mg oral tablet (15 sources)Nonsteroidal Anti-inflammatory DrugStart: 01-23-2022 End: 91-48-3224ppbk 1 tablet by mouth every six hoursibuprofen 600 mg Tab 600 mg = 1 tab(s), Oral, q6hr, # 40 tab(s), Refills(s) 0, [facility]acy: [facility], 157, cm, 01/23/22 7:20:00 EST, Height/Length Dosing, 55, kg, 01/23/22 7:20:00 EST, WeightDosing Start Date: 01/23/22 Status: Ordered Quantity: 40.0 Unit: tab(s) Repeat number: 1insulin glargine-yfgn (Semglee-yfgn) 100 UNIT/ML pen (8 sources)Start: 10-10-9441bhegsro glargine-yfgn (Semglee-yfgn) 100 UNIT/ML pen Inject 13 Units under the skin at bedtime 09/15/2025 Activeinsulin glargine-yfgn 100 unit/mL (3 mL) insulin pen (16 sources)Start: 65-23-3846pcruuav glargine-yfgn 100 unit/mL (3 mL) insulin pen Indications: Essential hypertension affecting in third trimester Prime with 2 units and give 5 units every morning and 23 units subQ at bedtime. 15 mL 3 09/28/2025 ActiveStart: 09-21-2025 End: 81-44-1040rtjqlez glargine-yfgn 100 unit/mL (3 mL) insulin pen Indications: Essential hypertension affecting in third trimester Prime with 2 units and give 5 units every morning and 20 units subQ at bedtime. 15 mL 3 09/21/2025 09/28/2025 DiscontinuedStart: 08-75-7032mlpapvg glargine-yfgn 100 unit/mL (3 mL) insulin pen Indications: Essential hypertension affecting in third trimester Prime with 2 units and give 5 units every morning and 20 units subQ at bedtime. 15 mL 3 09/21/2025 ActiveStart: 09-17-2025 End: 20-88-1949qbqqewb glargine-yfgn 100 unit/mL (3 mL) insulin pen Indications: Essential hypertension affecting in third trimester Prime with 2 units and give 5 units every morning and 17 units subQ at bedtime. 15 mL 3 09/17/2025 09/21/2025 DiscontinuedStart: 48-92-2844wdmbnox glargine-yfgn 100 unit/mL (3 mL) insulin pen Indications: Essential hypertension affecting in third trimester Prime with 2 units and give 5 units every morning and 17 units subQ at bedtime. 15 mL 3 09/17/2025 ActiveStart: 09-15-2025 End: 31-64-2162xpnjpgi glargine-yfgn 100 unit/mL (3 mL) insulin pen Indications: Essential hypertension affecting in third trimester Prime with 2 units and give 17 units subQ at bedtime. 15 mL 3 09/15/2025 09/17/2025 Discontinued Start: 40-88-4848cdwbpya glargine-yfgn 100 unit/mL (3 mL) insulin pen Indications: Essential hypertension affecting in third trimester Prime with 2 units and give 17 units subQ at bedtime. 15 mL 3 09/15/2025 ActiveStart: 09-10-2025 End: 11-35-3720gwhlbom glargine-yfgn 100 unit/mL (3 mL) insulin pen Indications: Essential hypertension affecting in third trimester Prime with 2 units and give 13 units subQ at bedtime. 15 mL 3 09/10/2025 09/15/2025 Discontinued Start: 56-13-4644uspfveo glargine-yfgn 100 unit/mL (3 mL) insulin pen Indications: Essential hypertension affecting in third trimester Prime with 2 units and give 13 units subQ at bedtime. 15 mL 3 09/10/2025 ActiveStart: 09-04-2025 End: 19-35-8694nziiuq 2 [IU] by subcutaneous injection once, then inject 10 [IU] by subcutaneous injection at bedtimeinsulin glargine-yfgn 100 unit/mL (3 mL) insulin pen Indications: Diet controlled gestational diabetes mellitus (GDM) in second trimester , Essential hypertension affecting in third trimester Prime with 2 units and give 10 units subQ at bedtime. 15 mL 3 09/04/2025 09/10/2025 DiscontinuedStart: 75-91-8176xqezac 2 [IU] by subcutaneous injection once, then inject 10 [IU] by subcutaneous injection at bedtimeinsulin glargine- yfgn 100 unit/mL (3 mL) insulin pen Indications: Diet controlled gestational diabetes mellitus (GDM) in second trimester , Essential hypertension affecting in third trimester Prime with 2 units and give 10 units subQ at bedtime. 15 mL 3 09/04/2025 Activeisopropyl alcohol 0.7 ml/ml medicated pad (20 sources)Start: 81-56-4359Peaxhuw Swabs (Alcohol Prep Pad) 70 % pads Indications: Gestational diabetes mellitus (GDM), antepartum, gestational diabetes method of control unspecified ([facility]) , Elevated glucose tolerance testApply 1 Pad topically Daily Use four times daily to check FSBS. 150 each 3 08/20/2025 Activeiv contrast (will be provided with radiology test) (12 sources)Start: 33-82-4748dq contrast (will be provided with radiology test) [...] 200 mg oral tablet (20 sources)beta-Adrenergic BlockerStart: 73-23-1897mrpo 1 tablet by mouth in the morninglabetalol (Normodyne) 200 MG tablet Indications: Gestational Hypertension Take 1 tablet (200 mg) bymouth in the morning and 1 tablet (200 mg) before bedtime. 60 tablet 3 09/03/2025 ActiveStart: 07-30-2025 End: 70-07-7128zdcx 1 tablet by mouth in the morninglabetalol (Normodyne) 100 MG tablet Indications: Hypertension, unspecified type Take 1 tablet (100 mg) by mouth in the morning and 1 tablet (100 mg) before bedtime. 60 tablet 5 07/30/2025 09/03/2025 DiscontinuedStart: 11-28-2022 End: 97-28-3253bjtwzadna (Normodyne,Trandate) injection 20 mgStart: 11-28-2022 End: 19-28-9555czzvrhlqd (Normodyne,Trandate) injection 20 mgStart: 11-28-2022 End: 44-84-9117uebdgkjmp (Normodyne,Trandate) 5 MG/ML injection - Pyxis ADS Override Pulltake 2 tablets by mouth three times dailylabetaloL (NORMODYNE) 100 mg tablet Take 2 tablets (200 mg total) by mouth 3 (three) times a day. Active magnesium oxide 400 mg oral tablet (9 sources)Start: 05-01-2025 End: 88-07-9943wggd 1 tablet by mouth once dailymagnesium oxide (Mag-Ox) 400 MG tablet Indications: headache in first trimester ([facility])Take 1 tablet (400 mg) by mouth Daily 30 tablet 3 05/01/2025 05/31/2025 Activemeloxicam 15 mg oral tablet (15 sources)Nonsteroidal Anti-inflammatory DrugStart: 02-02-2021 End: 25-50-1657bjye 1 tablet by mouth once dailymeloxicam (Mobic) 15 MG tablet Indications: Chronic right shoulder pain , Scapular dyskinesis Take 1 tablet (15 mg) by mouth Daily 30 tablet 3 12/30/2024 05/01/2025 Jkdobfgvglxp00 hr metoprolol succinate 25 mg extended release oral tablet (20 sources)beta-Adrenergic BlockerStart: 10-15-2024 End: 61-12-5472xnxt 1 tablet by mouth once dailymetoprolol succinate XL (Toprol- XL) 25 MG 24 hr tablet Indications: Hypertension, unspecified type Take 1 tablet by mouth daily 90 tablet 1 12/30/2024 ActiveStart: 91-19-1157paia 1 tablet by mouth once dailymetoprolol succinate XL (Toprol-XL) 25 MG 24 hr tablet Indications: Hypertension, unspecified type (CMS/HCC) Take 1 tablet by mouth daily 90 tablet 1 04/23/2024 ActiveStart: 97-49-2893dqan 1 tablet by mouth once dailymetoprolol succinate XL (Toprol-XL) 25 MG 24 hr tablet Indications: Hypertension, unspecified type (CMS/HCC) Take 1 tablet by mouth daily 90 tablet 1 10/23/2023 ActiveStart: 02-27-2023 End: 07-10-4104csyxuhrkjx succinate ER (TOPROL XL) 25 mg 24 hr tabletnaproxen 500 mg delayed release oral tablet (20 sources)Nonsteroidal Anti-inflammatory DrugStart: 62-38-4947ncwf 1 tablet by mouth twice dailynaproxen 500 mg oral enteric coated tablet 500 mg = 1 tab(s), Oral, BID, # 28 tab(s), Refills(s) 0 Start Date: 11/07/21 Status: Ordered Quantity: 28.0 Unit: tab(s) Repeat number: 1Start: 03-04-2021 End: 22-78-1343jtnc 1 tablet by mouth twice dailynaproxen 500 [...] 14.0 Unit:tab(s) Repeat number: 1Start: 11-02-2018 End: 86-61-4578diel 1 tablet by mouth twice daily as [...] (5 sources)Dihydropyridine Calcium Channel BlockerStart: 11-28-2022 End: 05-66-2947HBIDtsmqbs XL (Procardia XL) 30 MG 24 hr tablet Take 1 tablet (30 mg) by mouth daily. Do not crush,chew, or split. Do not start before December 02, 2022. 90 tablet 0 12/02/2022 12/02/2023 Activenorethindrone acetate 5 mg oral tablet (20 sources)Start: 05-17-2023 End: 62-00-8400qznc 2 tablets by mouth once dailynorethindrone (AYGESTIN) 5 mg tablet Take 2 tablets by mouth once daily. 60 tablet 5 01/03/2024 07/01/2024 ActiveStart: 04-11-2023 End: 25-01-0365yeek 1 tablet by mouth once dailynorethindrone (AYGESTIN) 5 mg tablet Take 1 tablet by mouth once daily. 30 tablet 11 04/11/2023 ActiveStart: 61-31-6003otnx 1 tablet by mouth once dailyNorethindrone Acetate [...] mg/ml rectal foam (2 sources)Start: 07-14-2022 End: 57-13-5096xfgu 15 g rectal route twice dailyProctoFoam 1% Foam apply, Rectal, BID for 7 day(s), 15 gm, Refill(s) 0 Start Date: 07/14/22 Stop Date: 07/21/22 Status: OrderedPrenatal Multivitamins with Vitamin B Complex, Vitamin C, Minerals and L-Methylfolate oral capsule (9 sources)Start: 00-58-6406Lizggzvm Multivitamins with Vitamin B Complex, Vitamin C, Minerals and L-Methylfolate oral capsule 1 cap(s), Oral, Daily, 30 cap(s), Refill(s) 0 Start Date: 07/14/22 Status: Ordered Quantity: 30.0 Unit: cap(s) Repeat number: 1Start: 83-97-5219Rvuzxfcz Multivitamins with Vitamin B Complex, Vitamin C, Minerals and L-Methylfolate oral capsule 1 cap(s), Oral, Daily, 30 cap(s), Refill(s) 0 Start Date: 07/14/22 Status: OrderedPrenatal Vit-Fe Fumarate-FA ( Vitamin) 27-0.8 MG tablet (3 sources) Vit-Fe Fumarate-FA ( Vitamin) 27-0.8 MG tablet Take by mouth. 0 ActivePrenatal Vit-Fe Fumarate-FA ( Vitamins) 28-0.8 MG tablet (20 sources)Start: 05-01-2025 End: 51-71-9236vnot 1 tablet by mouth once dailyPrenatal Vit-Fe Fumarate-FA ( Vitamins) 28-0.8 MG tablet Indications: , unspecified gestational age ([facility]) , Encounter for supervision of normal first in first trimester([facility]) Take 1 tablet by mouth Daily 30 tablet 11 05/01/2025 05/01/2026 ActiveStart: 05-01-2025 End: 91-51-1150nzwa 1 tablet by mouth once dailyPrenatal Vit-Fe Fumarate-FA ( Vitamins) 28-0.8 MG tablet Indications: , unspecified gestational age , Encounter for supervision of normal first in first trimester Take 1 tablet by mouth Daily 30 tablet 11 05/01/2025 05/01/2026 Active SUMAtriptan 100 mg oral tablet (10 sources)Serotonin-1b and Serotonin-1d Receptor AgonistStart: 57-87-4359kgce 1 mg by mouth onceImitrex 100 mg Tab mg tab(s), Oral, Once, Refills(s) 0 Start Date: 02/02/21 Status: Ordered Repeat number: 1Surgical Lubricant Jelly gel (12 sources)Start: 97-11-4188Brepqyzx Lubricant Jelly gel For MRI Female Pelvis, MRI department to provide. Administer intra-vaginal Surgilube immediately prior the MRI procedure (total amount to patient toleranace). 1 g 0 05/17/2023 Active Comment on above:For MRI Female Pelvis, MRI department to provide. Administer intra-vaginal Surgilube immediately prior the MRI procedure (total amount to patient toleranace).tiZANidine 4 mg oral tablet (3 sources)Central alpha-2 Adrenergic AgonistStart: 74-42-4376rzst 1 mg by mouth every eight hourstiZANidine 4 mg Tab mg tab(s), Oral, q8hr, Refills(s) 0 Start Date: 02/02/21 Status: OrderedtraMADol hydrochloride 50 mg oral tablet (10 sources)Opioid AgonistStart: 72-99-4443sztv 1 tablet by mouth every four hours as needed for paintraMADol (ULTRAM) 50 mg tablet Indications: Pelvic pain in female Take 1 tablet by mouth every 4 hours as needed for pain. 20 tablet 0 08/30/2023 ActiveStart: 11-88-6600gecs 1 tablet by mouth every six hourstraMADol HCl - 50 MG Oral Tablet TAKE 1 TABLET Every 6 hours Quantity: 20 Refills: 0 Ordered: 18-Aug-2020 Charlene Rodriguez DO Start : 18-Aug-2020 ActiveStart: 03-12-2019 End: 11-52-1739qcpn 1 tablet by mouth every four hours as needed for pain Tramadol 50 mg tablet Discontinued 50 MG PO Q4H as needed for pain 30 5 March 12, 2019 12:00am August 04, 2019 8:19amComment on above:Take 1 tablet by mouth every 4 hours as needed for pain.Vitamin D2 2000 intl units oral capsule (9 sources)Start: 67-25-1247zpck 1 capsule by mouth once dailyVitamin D2 2000 intl units oral capsule Oral, Daily, Refills(s) 0 Start Date: 02/02/21 Status: Ordered Repeat number: 1Start: 91-53-8166Wdotysf D2 2000 intl units oral capsule Oral, Daily, Refills(s) 0 Start Date: 02/02/21 Status: Ordered Completed/Discontinued Medications MedicationDrug Class(es)DatesSig (Normalized)Sig (Original)acetaminophen 325 mg oral tablet (4 sources)Start: 11-30-2022 End: 72-76-8440xggq 1 tablet by mouth every six hours as needed for rikc887 mg, Oral, Every 6 hours PRN, mild pain (1-3), Starting on Constance 11/30/22 at 0422 Give in addition to any other pain medication ordered at same time for any pain indication. Maximumdose of acetaminophen is 4000 mg from all sources in 24 hours. Alternate ibuprofen and acetaminophen every 3 hours.Start: 11-28-2022 End: 52-35-6280nyzrllyzsieqn (Tylenol) tablet 1,000 mgacetaminophen 300 mg / codeine phosphate 30 mg oral tablet (4 sources)Opioid AgonistStart: 01-19-2025 End: 49-54-5752kxxs 1 tablet by mouth every six hours for painacetaminophen- codeine (Tylenol w/ Codeine #3) 300-30 MG tablet Indications: Pain in female genitalia on intercourse , Endometriosis Take 1 tablet by mouth every 6 (six) hours if needed for severe pain for up to 5 days 20 tablet 01/19/2025 01/24/2025 ExpiredStart: 07-22-2024 End: 57-98-8942ccso 1 tablet by mouth every six hours for painacetaminophen- codeine (Tylenol w/ Codeine #3) 300-30 MG tablet Indications: Dysmenorrhea, unspecified Take 1 tablet by mouth every 6 (six) hours if needed for severe pain for up to 5 days 20 tablet 07/22/2024 07/27/2024 Activeascorbic acid 500 mg oral tablet (5 sources)Vitamin CStart: 10-25-2018 End: 43-68-6062pvml 2 tablets by mouth in the morningASCORBIC ACID WITH ISAURO HIPS 500 MG tablet Take 2 tablets (1,000 mg total) by mouth in the morning.0 10/25/2018 09/04/2025 Discontinued ()aspirin 325 mg / butalbital 50 mg / caffeine 40 mg oral capsule (11 sources)Platelet Aggregation Inhibitor, Barbiturate, Nonsteroidal Anti- inflammatory Drug, Central Nervous System Stimulant, Methylxanthine End: 53-31-8616lfkf 1 capsule by mouth every four hours as needed tnrtgfghud-htobmcx-oplktojk (Fiorinal) 50-325-40 MG capsule Take 1 capsule [...] spray (2 sources)Standardized Chemical AllergenStart: 11-30-2022 End: 14-79-1555Ynidpxh, As needed, pain, , Starting on Constance 11/30/22 at 0608, Apply to perineal area. Patient is capable and may self administer at bedside.betamethasone 3 mg/ml / betamethasone acetate 3 mg/ml injectable suspension (2 sources)CorticosteroidStart: 11-28-2022 End: 56-27-2459ejgcentrepvlv acetate-betamethasone sodium phosphate (Celestone) injection 12 mgcalcium chloride 0.0014 meq/ml / potassium chloride 0.004 meq/ml / sodium chloride 0.103 meq/ml / sodium lactate 0.028 meq/ml injectable solution (2 sources)Start: 11-28-2022 End: 07-13-2328qqjk 125 mL intravenously every pdax770 mL/hr, IntraVENous, Continuous, Starting on Sun11/28/22 at 0100, Pre-Deliverycetirizine hydrochloride 10 mg oral tablet (17 sources)Histamine-1 Receptor AntagonistStart: 06-09-2025 End: 66-29-8797nxin 1 tablet by mouth once dailycetirizine (ZyrTEC ALLERGY) 10 MG tablet Indications: Allergy, sequela Take 1 tablet (10 mg) by mouth Daily 30 tablet 11 06/09/2025 07/15/2025 DiscontinuedchlordiazePOXIDE hydrochloride 5 mg / clidinium bromide 2.5 mg oral capsule (1 source)Anticholinergic, BenzodiazepineStart: 85-31-6439mmsd 1 capsule by mouth every eight hourschlordiazePOXIDE-Clidinium 5-2.5 MG 1 capsule before meals Orally Three times a day for 30 day(s) May, Not-Taking chlorhexidine gluconate 20 mg/ml medicated pad (2 sources)Start: 11-28-2022 End: 84-89-5330mlfln 1 dose topically every six hoursTopical, Every 6 hours, First dose on Sun11/28/22 at 0100, Pre-Delivery Apply to the affected area.&a mp;nbsp; Clean entire abdomen.cholecalciferol 0.125 mg oral capsule (5 sources)Vitamin DStart: 10-25-2018 End: 13-99-9486bqat 1 capsule by mouth in the morningcholecalciferol, vitamin D3, (VITAMIN D3) 5,000 units capsule Take 1 capsule (5,000 Units total) bymouth in the morning. 0 10/25/2018 09/04/2025 Discontinued ()desogestrel 0.15 mg / ethinyl estradiol 0.03 mg oral tablet (11 sources)Progestin, EstrogenStart: 07-22-2024 End: 79-51-3234amcyzflputp-ethinyl estradiol (Apri) 0.15-30 MG-MCG tablet Indications: Dysmenorrhea, unspecified Take 1 tablet by mouth Daily 21 tablet 12 10/20/2024 01/19/2025 Discontinued (Other)diphenhydrAMINE (BENADryl) injection 25 mg (2 sources)Start: 11-30-2022 End: 15-45-2758bjpm 25 mg intravenously every six hours as neededdiphenhydrAMINE (BENADryl) injection 25 mgNorethindrone-E.Estradiol-Iron (1 source)EstrogenStart: 10-17-2017 End: 92-69-5984sggh 1 tablet by mouth once dailyNorethindrone-E.Estradiol-Iron (Lo Loestrin Fe) 1 mg-10 mcg (24)/10 mcg (2) tablet Discontinued 1 TAB PO Daily October 17, 2017 1:00am March 12, 2019 6:15amEthinyl Estradiol / Norethindrone (7 sources)EstrogenStart: 12-01-2018 End: 09-47-1647oxsi 0.05 ug by mouth once in the eveningnorethindrone ac-eth estradiol (MICROGESTIN 1/20) 1-20 mg-mcg per tablet Take 1 tablet by mouth in t he evening. 0 12/01/2018 09/04/2025 Discontinued ()Start: 12-01-2018 take 0.05 ug by mouth once in the eveningnorethindrone ac-eth estradiol (MICROGESTIN 1/20) 1-20 mg-mcg per tablet Take 1 tablet by mouth in the evening. 0 12/01/2018 ActiveStart: 15-08-9696ijpq 1 tablet by mouth once dailyDasetta oral tablet 1 tab(s), Oral, Daily, Refill(s) 0, control/menstrual regulation Start Date: 11/23/16 Status: Orderedfamotidine 20 mg oral tablet (2 sources)Histamine-2 Receptor AntagonistStart: 11-30-2022 End: 10-82-7525lxvg 20 mg by mouth twice daily as needed for gastroesophageal reflux mg, Oral, 2 times daily PRN, heartburn, Starting on Constance 11/30/22 at 0608, Renal dose per pharmacy for peptic ulcer prophylaxis.ferrous sulfate 325 mg oral tablet (8 sources)Start: 11-30-2022 End: 27-91-5530vaox 325 mg by mouth twice daily at kyryyyto248 mg, Oral, 2 times daily with meals, First dose on Constance 11/30/22 at 0800, Start if Hgb le ss than 10. End: 33-96-6973yady 1 tablet by mouth in the morningFerrous Sulfate (IRON PO) Take 1 tablet by mouth in the morning. 09/16/2025 Discontinuedtake 1 tablet by mouth in the morningFerrous Sulfate (IRON PO) Take 1 tablet by mouth in the morning. ActiveFLUoxetine 20 mg oral capsule (17 sources)Serotonin Reuptake InhibitorStart: 80-20-2504aptz 1 capsule by mouth once dailyFLUoxetine HCl - 20 MG Oral Capsule TAKE 1 CAPSULE Daily Quantity: 30 Refills: 11 Ordered: 02-Jun-2021 Kuldip DAY Charlene Start : 02-Jun-2021 Active Start: 11-02-2018 End: 03-45-6409jmvl 1 capsule by mouth once dailyFluoxetine (Prozac) 20 mg capsule Discontinued 20 MG PO Daily November 02, 2018 1:00am August 04, 2019 8:19amtake 1 capsule by mouth once dailyFLUoxetine (PROZAC) 10 mg capsule Take 10 mg by mouth once daily. 0 ActiveComment on above:Take 10 mg by mouth once daily.fluticasone propionate 0.05 mg/actuat metered dose nasal spray (16 sources)CorticosteroidStart: 06-22-2025 End: 89-73-1349nlvq 1 spray(s) nasal route once dailyfluticasone (Flonase) 50 MCG/ACT nasal spray Indications: Sinusitis, unspecified chronicity, unspecified location Administer 1 spray into each nostril Daily Shake gently. Before first use, prime pump. After use, clean tip and replace cap. 16 g 12 06/22/2025 07/15/2025 Discontinued End: 26-52-0404phkq 1 spray(s) nasal route in the morningfluticasone (Flonase) 50 MCG/ACT nasal spray Administer 1 spray into affected nostril(s) in the morn ing. 09/16/2025 Discontinued End: 70-63-5861jmzc 1 spray(s) nasal route in the morningfluticasone propionate (FLONASE) 50 mcg/actuation nasal spray Administer 1 spray into each nostril in the morning. 09/04/2025 Discontinued ()lanolin 1000 mg/ml topical cream (2 sources)Start: 11-30-2022 End: 72-64-1294Giiclwu, As needed, dry skin, nipple discomfort, Starting on Sun11/30/22 at 0608, Apply to affected area.500 ml magnesium sulfate 40 mg/ml injection (4 sources)Start: 11-28-2022 End: 92-73-2746imuomyngc sulfate 20 GM/500ML infusionStart: 11-28-2022 End: 92-21-7586jkbzyaomv sulfate 20 GM/500ML infusion - Pyxis ADS Override Pull metoclopramide 10 mg oral tablet (2 sources)Dopamine-2 Receptor AntagonistStart: 10-67-8789fiop 1 tablet by mouth every eight hoursReglan 10 MG 1 tablet before meals Orally tid for 30 day(s) March, Not-TakingmiSOPROStol 0.2 mg oral tablet (2 sources)Prostaglandin E1 AnalogStart: 11-30-2022 End: 35-46-6789aoMGHUNGvaz (Cytotec) tablet 1,000 mcgStart: 11-30-2022 End: 11-95-2105iuZRNPLQaze (Cytotec) tablet 1,000 mcgmiSOPROStol (Cytotec) split tablet 25 mcg (2 sources)Start: 11-28-2022 End: 19-36-5805rnee 1 tablet vaginal route every four hoursmiSOPROStol (Cytotec) split tablet 25 mcg1 ml morphine sulfate 4 mg/ml injection (4 sources)Opioid AgonistStart: 11-28-2022 End: 68-56-0820ykptzake sulfate (PF) injection 4 mgnitrofurantoin, macrocrystals 25 mg / nitrofurantoin, monohydrate 75 mg oral capsule (6 sources)Nitrofuran AntibacterialStart: 82-41-7007Zglsvndpxcbggv Monohyd Macro 100 MG Oral Capsule TAKE 1 CAPSULE Other Please take one capsule aftersexual intercourse to prevent UTI Quantity: 30 Refills: 11 Ordered: 01-Apr-2021 Teri Chau MD Start : 01-Apr-2021 Active2 ml ondansetron 2 mg/ml injection (12 sources)Serotonin-3 Receptor AntagonistStart: 11-29-2022 End: 70-51-3390vrih 4 mg intravenously every six hours as needed for nausea and vomitingondansetron (Zofran) injection 4 mgStart: 99-02-2770kvvw 1 tablet by mouth every six hours as needed for nauseaZofran 4 mg Tab 1 tab(s), Oral, q6hr, PRN Nausea, # 8, Refills(s) 0 Start Date: 07/14/22 Status: Ordered Quantity: 8.0 Unit: Repeat number: 1Start: 15-99-1444uiqe 1 tablet by mouth three times daily Zofran 4 MG 1 tablet Orally THREE TIMES A DAY for 30 day(s) May, Not-Takingondansetron ODT (Zofran-ODT) disintegrating tablet 4 mg (2 sources)Start: 11-30-2022 End: 56-43-6300vyxp 1 tablet by mouth every eight hours [...] for 1 hour. Then discontinue.Start: 11-29-2022 End: 67-50-8517hseroerz (Pitocin) 30 units in 500 mL infusionStart: 11-29-2022 End: 18-09-1059tdylrjzn (Pitocin) 30 units in 500 mL infusionphenazopyridine hydrochloride 200 mg oral tablet (10 sources)Start: 37-85-6757dpoi 1 tablet by mouth three times dailyPyridium 200 mg Tab 200 mg = 1 tab(s), Oral, TID, Take one tab by mouth three times a day for threedays, # 9 tab(s), Refills(s) 0, Pharmacy: [facility] [id number], 157, cm, 03/04/21 7:22:00 EDT, Height/Length Dosing, 52, kg, 03/04/21 7:22:00 EDT, Weight Dosing Start Date: 03/04/21 Status: Ordered Quantity: 9.0 Unit: tab(s) Repeat number: 1predniSONE 10 mg oral tablet (3 sources)Start: 09-10-2023 End: 67-99-1987itck 2 tablets by mouth twice daily, then [...] 09/10/2023 01/10/2024 Discontinued (Therapy completed)Start: 03-12-2019 End: 03-33-3869ihqv 3 tablets by mouth once daily at mealtimePrednisone 20 mg tablet Discontinued 60 MG PO Daily 9 March 12, 2019 12:00am August 04, 2019 8:18am administer with food or milkpromethazine hydrochloride 12.5 mg oral tablet (13 sources)PhenothiazineStart: 05-25-2025 End: 79-66-4468jlpj 1 tablet by mouth every six hours [...] nausea. 30 tablet 2 508/ Discontinued End: 84-37-4258xbgf 12.5 mg rectal route every six hours as needed for nausea and vomitingpromethazine (PHENERGAN) 12.5 mg suppository Insert 1 suppository (12.5 mg total) into the rectum every 6 (six) hours as needed for nausea or vomiting. 09/04/2025 Discontinued ()rizatriptan 5 mg disintegrating oral tablet (5 sources)Serotonin-1b and Serotonin-1d Receptor AgonistStart: 10-24-2018 End: 59-36-3134wyyqobrvbfk PUBLIC HEALTH EPIDEMIOLOGIST (MAXALT-PUBLIC HEALTH EPIDEMIOLOGIST) 5 mg disintegrating tablet Dissolve 1 tablet (5 mg total) on tongue asneeded. 0 10/24/2018 09/04/2025 Discontinued ()5 ml sodium chloride 9 mg/ml injection (2 sources)Start: 11-28-2022 End: mL, IntraVENous, Every 12 hours scheduled (2 times per day), First dose on Sun11/28/22 at 0900, Pre-Deliveryvitamin b12 1 mg extended release oral tablet (5 sources)Vitamin T35Lymlm: 10-25-2018 End: 67-54-6655tgxu 1 tablet by mouth in the morningcyanocobalamin, vitamin B- 12, (VITAMIN B-12) 1,000 mcg tablet extended release Take 1 tablet (1 mg total) by mouth in the morning. 0 10/25/2018 09/04/2025 Discontinued ()witch yesi 500 mg/ml medicated pad (2 sources)Start: 11-30-2022 End: 25-30-5117Xgvaems, As needed, hemorrhoids, For perineal pain or discomfort, Starting on Sun11/30/22 at 0608, Apply to perineal area. Patient is capable and may self administer at bedside. Problems Active Problems Problem ClassificationProblemDateDocumented DateEpisodic/ChronicAllergic reactions (1 source)Allergic reaction; Translations: [Allergy, unspecified, initial encounter]40-31-8522SyyukyhuBvdjatu on above:Problem List clean-up per request of Phys. EHR CmteAnxiety disorders (20 sources)Anxiety; Translations: [Anxiety state, unspecified]Onset: 10-08-2020 20-56-0218RfcfmguZmbzxvx on above:Problem List clean-up per request of Phys. EHR CmteCardiac dysrhythmias (20 sources)Paroxysmal tachycardia; Translations: [Paroxysmal tachycardia, unspecified]Onset: 414134-37-8164WsxbremMaksbmkfizavj of surgical procedures or medical care (1 source)Postoperative retention of urine; Translations: [Other postprocedural complications and disorders of genitourinary system]36-07-3223QmbmjuwvPtwfmhb on above:Problem List clean-up per request of Phys. EHR CmteDiabetes mellitus without complication (2 sources)Abnormal glucose tolerance test; Translations: [Other abnormal glucose]23-05-1992YgsdogntGpfbrkam or abnormal glucose tolerance complicating ; childbirth; or the puerperium (20 sources)Gestational diabetes mellitus; Translations: [Gestational diabetes mellitus in , diet controlled]Onset: 244039-36-7390Lrslagty Endometriosis (20 sources)Endometriosis (clinical); Translations: [Endometriosis, site unspecified]Onset: 25-21-0711ImtkhhkOifzswxfe hypertension (20 sources)Hypertensive disorder; Translations: [Essential (primary) hypertension]Onset: 733444-60-0999VvszguaAwzoaymwsrdat symptoms and ill- defined conditions (20 sources)Microscopic hematuria; Translations: [Nocturia]88-38-6494Tlzlbyal Comment on above:Problem List clean-up per request of Phys. EHR CmteHeadache; including migraine (20 sources)Migraine; Translations: [Migraine, unspecified, not intractable, without status migrainosus]Onset: 952731-25-8479FwccyiaJytusdv on above: Problem List clean-up per request of Phys. EHR CmteHeadache; including migraine (14 sources)Headache; Translations: [Headache, unspecified]Onset: 01-31-2023 55-62-7810TwlzdnqpEehsmwayvob (1 source)Hemorrhoids; Translations: [Unspecified hemorrhoids]Onset: 07-14-2022 EpisodicHypertension complicating ; childbirth and the puerperium (20 sources)Hypertension complicating ; Translations: [Unspecified maternal hypertension, unspecified trimester]Onset: hronic Hypertension complicating ; childbirth and the puerperium (16 sources)Severe pre-eclampsia complicating childbirth; Translations: [Severe pre-eclampsia, third trimester]Onset: 64-51-6390JhkkertiZvsoo disorders and dislocations; trauma-related (20 sources)Disorder of left patellofemoral joint; Translations: [Patellofemoral disorders, left knee]Onset: 100945-23-5738LqdycwhCaazu disorders and dislocations; trauma-related (20 sources)Disorder of right patellofemoral joint; Translations: [Patellofemoral disorders, right knee]Onset: hronic Menstrual disorders (20 sources)Dysmenorrhea; Translations: [Dysmenorrhea, unspecified]Onset: 232511-13-5412CkqlgrcYtlolu and vomiting (1 source)Nausea and vomiting; Translations: [Nausea with vomiting, unspecified] EpisodicNonspecific chest pain (2 sources)Chest pain; Translations: [Chest pain, unspecified]55-29-7636Xkbfqvbt Comment on above:Problem List clean-up per request of Phys. MIKAYLA CmteNutritional deficiencies (20 sources)Vitamin D deficiency; Translations: [Vitamin D deficiency, unspecified]Onset: 448091-77-3973VdxilzyOfnvl acquired deformities (20 sources)Scoliosis deformity of spine; Translations: [Scoliosis, unspecified] Onset: 848981-63-5719KcwjvrdHxtqf bone disease and musculoskeletal deformities (10 sources)Disorder of phqg32-87-9002GmdmdtwfWyehcrj on above:right shoulder right shoulderOther circulatory disease (1 source)Elevated blood-pressure reading without diagnosis of hypertension; Translations: [Elevated blood-pressure reading, without diagnosis of hypertension]Onset: 19-89-5339WdeugeiuJvedr complications of ; puerperium affecting management of mother (1 source)Delayed AND/OR secondary hemorrhage; Translations: [Delayed and secondary hemorrhage]Onset: 06-77-4164UbhygybsMvcel complications of (1 source)Finding related to ; Translations: [Other specified related conditions, unspecified trimester]Onset: 23-89-9589PtxvtlzxTzsdg complications of (1 source)Supervision of with other poor reproductive or obstetric history, unspecified trimester; Translations: [Supervision of with other poor reproductive or obstetric history, unspecified trimester]Onset: 64-18-0216KsdgopknVuzgi connective tissue disease (1 source)Diastasis recti; Translations: [Separation of muscle (nontraumatic), other site]EpisodicOther female genital disorders (10 sources)Abnormal uterine -98-8210DdbslukBhbyr female genital disorders (1 source)Dyspareunia; Translations: [Other specified dyspareunia]ChronicOther female genital disorders (20 sources)Pain in female genitalia on intercourse; Translations: [Unspecified dyspareunia]Onset: 122555-49-3636HbeytbhCghxf female genital disorders (1 source)Unspecified dyspareunia; Translations: [Unspecified dyspareunia]Onset: 71-95-6508SkvveohIdwyl female genital disorders (2 sources)Pelvic floor dysfunction; Translations: [Other specified conditions associated with female genital organs and menstrual cycle]EpisodicOther gastrointestinal disorders (18 sources)Constipation; Translations: [Constipation, unspecified]Onset: 197361-68-7160KoxotallGnwyhgf on above:Problem List clean-up per request of Phys. EHR CmteOther gastrointestinal disorders (1 source)Constipation, unspecified; Translations: [Constipation, unspecified] Onset: 03-87-7871JkecfgzqOgsqd hereditary and degenerative nervous system conditions (20 sources)Finding of scapular structure; Translations: [Other specified extrapyramidal and movement disorders]Onset: 772679-35-8672PoiiuabPhzxf nervous system disorders (9 sources)Chronic pain; Translations: [Other chronic pain]Onset: 03-29-2023 05-91-7420AcokoxeTjdgr nervous system disorders (1 source)Other chronic pain; Translations: [Chronic pelvic pain in female] Onset: 52-90-7715QjjcudrQaqzk nervous system disorders (1 source)Paresthesia of left upper limb; Translations: [Paresthesia of skin] 48-93-0160TghmjxfvMymqteb on above:Problem List clean-up per request of Phys. EHR CmteOther nervous system disorders (1 source)Tremor; Translations: [Tremor, unspecified]84-35-9934IcwhpnthRdnsurn on above:Problem List clean-up per request of Phys. EHR CmteOther nutritional; endocrine; and metabolic disorders (20 sources)Body mass index 30+ - obesity; Translations: [Obesity, unspecified] Onset: 235580-90-6545ZielaehYxgok and delivery including normal (18 sources); Translations: [Encounter for supervision of normal , unspecified, unspecified trimester]78-21-2614KcwvkdprNjiyj screening for suspected conditions (not mental disorders or infectious disease) (8 sources)Elevated liver enzymes level; Translations: [Other specified abnormal findings of blood chemistry]Onset: 04-18-2022 Resolved: 61-38-1830WyduqlziNllhu upper respiratory disease (20 sources)Allergic rhinitis due to pollen; Translations: [Allergic rhinitis due to pollen]Onset: 123488-05-4362JmjtwuxDdxho upper respiratory infections (2 sources)Sinusitis; Translations: [Chronic sinusitis, unspecified]06-22-2025 ChronicResidual codes; unclassified (2 sources)Contraception ; Translations: [Other specified health status] 05-47-5990ZsdgjouqGbiwvblp codes; unclassified (2 sources)Gestation period, 13 weeks; Translations: [13 weeks gestation of ]98-95-2647GzoxbnztJfrtxcke codes; unclassified (2 sources)Gestation period, 17 weeks; Translations: [17 weeks gestation of ]15-69-2615JdcorowbTnynnsrc codes; unclassified (2 sources)Gestation period, 20 weeks; Translations: [20 weeks gestation of ]26-96-1552IqiymccyGzuetntr codes; unclassified (2 sources)Gestation period, 24 weeks; Translations: [24 weeks gestation of ]46-46-4493StyvlsovCkzpbgga codes; unclassified (2 sources)Gestation period, 26 weeks; Translations: [26 weeks gestation of ]31-81-8470UsjjdxpaJwuieezy codes; unclassified (2 sources)Gestation period, 27 weeks; Translations: [27 weeks gestation of ]33-56-6076WgtsmnenBucuqgwf codes; unclassified (1 source)Gestation period, 28 weeks; Translations: [28 weeks gestation of ]18-77-2793PffpwqfaPfgezypb codes; unclassified (1 source)28 weeks gestation of ; Translations: [28 weeks gestation of ]Onset: 09-35-7208VypdbranMdkgbaga codes; unclassified (2 sources)Gestation period, 29 weeks; Translations: [29 weeks gestation of ]18-05-4298ZfhsnthoWgicilax codes; unclassified (2 sources)Gestation period, 31 weeks; Translations: [31 weeks gestation of ]53-63-4777DxuecczgJkzaqngvjfq; intervertebral disc disorders; other back problems (20 sources)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; Translations: [Other cervical disc displacement, unspecified cervical region] Onset: 773923-50-9994ZxyduraDfinhnuhvvvt (1 source)MFM consultOnset: 56-73-0387Adpfftxhrrzf (1 source)Gestational DiabetesOnset: 21-62-6225Nufcmnz tract infections (20 sources)Recurrent urinary tract infection; Translations: [Urinary tract infection, site not specified]Onset: 622499-22-0776Fyniqhfz Past or Other Problems Problem ClassificationProblemDateDocumented DateEpisodic/ChronicAbdominal pain (20 sources)Epigastric pain; Translations: [Epigastric pain]Onset: 07-14-2022 EpisodicAcquired foot deformities (20 sources)Acquired equinus deformity of foot; Translations: [Other acquired deformities of unspecified foot]Onset: 708279-40-4656DzzkqrlpYdtantk dysrhythmias (20 sources)Tachycardia; Translations: [Tachycardia, unspecified]Onset: 683979-31-3727KcphwmhjBkhibrxzquu deficiencies (20 sources)Cobalamin deficiency; Translations: [Deficiency of other specified B group vitamins]Onset: 952633-84-8893HwouflsjQsdcd connective tissue disease (20 sources)Posterior calcaneal exostosis; Translations: [Calcaneal spur, unspecified foot]Onset: 796662-71-4823EvxiznneFtndx disorders of stomach and duodenum (20 sources)Gastroparesis syndrome; Translations: [Gastroparesis]Onset: 214800-14-5092CftsmpuaXheeg female genital disorders (1 source)Other specified conditions associated with female genital organs and menstrual cycle; Translations:[High-tone pelvic floor dysfunction]Onset: 22-46-8222DpatjdutFppbt female genital disorders (20 sources)Chronic pelvic pain of female; Translations: [Chronic pelvic pain in female]Onset: 844069-86-1863AqomxhvlMjgkg gastrointestinal disorders (20 sources)Swallowing painful; Translations: [Dysphagia, unspecified]Onset: 313257-32-5201GxwgisvxJhbll gastrointestinal disorders (20 sources)Diarrhea; Translations: [Diarrhea, unspecified]Onset: 03-24-2025 77-71-2764PqktzrwzJxscd non-traumatic joint disorders (20 sources)Chronic pain of right upper limb; Translations: [Pain in right shoulder]Onset: 867492-77-3028KgmolivxWzytg nutritional; endocrine; and metabolic disorders (16 sources)Loss of appetite; Translations: [Anorexia]Onset: 05-27-2020 38-90-9213HpuxvveoLyroppc (15 sources)Vasovagal syncope; Translations: [Syncope and collapse]Onset: 176075-54-8244UicaclatRtlgqhlbobqt (9 sources)PregnancyOnset: 07-14-2022 Resolved: 257301-02-9370CGZKRAU: Highlighted row has been ruled out! Unclassified (1 source)No known active syshxchu08-03-6614 Results Test NameValueInterpretationReference RangeFacilityUS OB BPP W NON-STRESS on [place] [address] Ultrasound Report Signed Patient: JUHI GAMA MR#: [id number] : 1995 Acct:[id number] Age/Sex: 30 / F ADM Date: 10/03/25 Loc: US Attending Dr: Steph Keane Ordering Physician: Steph Keane Date of Service: 10/03/25 Procedure(s): US OB BPP w non-stress Accession Number(s): [id number] cc: Steph Keane; KAFTAN,G KENNETH The [address] [address] Patient Name: JUHI GAMA MRN: [facility]:[id number] date: 1995 Sex: F Assigned Patient Location: US Current Patient Location: Accession/Order Number: [id number] Exam Date: 10/03/2025 10:53 Report Date: 10/03/2025 [...] Faria M.D. 10/03/2025 11:36 AM Dictation Location: [place] [address] Electronically authenticated by: [id number] Y Date: 10/03/2025 11:36 Dictated By: Will Faria M.D. Signed By: 10/03/25 1138 DD/ 1136 TD/TT: Manager Work:TBHRadiology, Radiologist, MD - 10/03/2025 [place] [address] Ultrasound Report Signed Patient: JUHI GAMA MR#: [id number] : 1995 Acct:[id number] Age/Sex: 30 / F ADM Date: 10/03/25 Loc: US Attending Dr: Steph Keane Ordering Physician: Steph Keane Date of Service: 10/03/25 Procedure(s): US OB BPP w non-stress Accession Number(s): [id number] cc: Steph Keane; Yoamira BELTRAN [place] [id number] Patient Name: JUHI GAMA MRN: [id number] date: 1995 Sex: F Assigned Patient Location: US Current Patient Location: Accession/Order Number: [id number] Exam Date: 10/03/2025 10:53 Report Date: 10/03/2025 [...] Faria M.D. 10/03/2025 11:36 AM Dictation Location: [place] [address] Electronically authenticated by: [id number] Y Date: 10/03/2025 11:36 Dictated By: Will Faria M.D. Signed By: 10/03/25 1138 DD/ 1136 TD/TT: Manager Work: [facility] HealthcareRadiology Study observation (narrative)[facility] HealthcareUS OB BPP W NON-STRESSOrdered By: Radiologist Radiology on 28-30-9359[facility] Work Phone: Urinalysis macro (dipstick) panel (U)on 09-30-2025 Bilirubin, UANegativeNegative - 4(70) +++ mg/dLNOMS HealthcareBlood, UANegative Negative - 50 Teodoro/mcLNOMS HealthcareClarity, UAClearNOMS HealthcareColor, UA YellowNOMI HealthcareGlucose, UANegativeNegative - 2000(110) ++++ mg/dLNOMI HealthcareInterpretation and review of laboratory resultsNormalNOSouthPo[facility] Ketones, UANegativeNegative - 160(16) ++++ mg/dLNOMI HealthcareLeukocytes, UA NegativeNegative - 500+++ Robinson/mcLNOMI HealthcareNitrite, UANegativeNegative - PositiveNOMI HealthcarepH, UA6.05 - 9NOMI HealthcareProtein, UANegativeNegative - 2000(20) ++++ mg/dLNOMI HealthcareSpec Grav, UA1.0101 - 1.03N[facility] Healthcare Urobilinogen, UA1.00.2 - 12 mg/dLNOEastern [facility] HealthcareUS OB BPP W NON-STRESSon 92-64-[place]64[place], [place] [address] Ultrasound Report Signed Patient: JUHI GAMA MR#: [id number] : 1995 Acct:[id number] Age/Sex: 30 / F ADM Date: 09/26/25 Loc: US Attending Dr: Steph Keane Ordering Physician: Steph Keane Date of Service: 09/26/25 Procedure(s): US OB BPP w non-stress Accession Number(s): [id number] cc: Steph Keane; Yomaira BELTRAN [place] [id number] Patient Name: JUHI GAMA MRN: [id number] date: 1995 Sex: F Assigned Patient Location: Current Patient Location: Accession/Order Number: [id number] Exam Date: 09/26/2025 11:50 Report Date: 09/26/2025 14:50 At the request of: STEPH KEANE Procedure: US OB BPP w non-stress Ultrasound biophysical profile INDICATION: -induced hypertension COMPARISON: 09/19/2025 FINDINGS IMPRESSION: Cephalic position. 8 out of 8 score biophysical profile. LEONEL 11.6 cm. heart 129 bpm Impression dictated by: Chu Amaya M.D. 09/26/2025 2:50 PM Dictation Location: [facility]-29 Electronically authenticated by: [id number] Y Date: 09/26/2025 14:50 Dictated By: Chu Amaya M.D. Signed By: 09/26/25 1452 DD/ 49 TD/TT: Manager Work:TBHRadiology, Radiologist, - 09/26/2025 [place] [address] Ultrasound Report Signed Patient: JUHI GAMA MR#: [id number] : 1995 Acct:[id number] Age/Sex: 30 / F ADM Date: 09/26/25 Loc: US Attending Dr: Steph Keane Ordering Physician: Steph Keane Date of Service: 09/26/25 Procedure(s): US OB BPP w non-stress Accession Number(s): [id number] cc: Le Keane G ROBERT [place] [address] Patient Name: JUHI GAMA MRN: [facility]:[id number] date: 1995 Sex: F Assigned Patient Location: Current Patient Location: Accession/Order Number: [id number] Exam Date: 09/26/2025 11:50 Report Date: 09/26/2025 14:50 At the request of: STEPH KEANE Procedure: US OB BPP w non-stress Ultrasound biophysical profile INDICATION: -induced hypertension COMPARISON: 09/19/2025 FINDINGS IMPRESSION: Cephalic position. 8 out of 8 score biophysical profile. LEONEL 11.6 cm. heart 129 bpm Impression dictated by: Chu Amaya M.D. 09/26/2025 2:50 PM Dictation Location: RADIO-PC-29 Electronically authenticated by: [id number] Y Date: 09/26/2025 14:50 Dictated By: Chu Amaya M.D. Signed By: 09/26/25 145 DD/ 145 TD/TT: Manager Work: LANETTE HealthcareRadiology Study observation (narrative)NOMS HealthcareUS OB BPP W NON-STRESSOrdered By: Radiologist Radiology on 47-18-4145AYJX [facility] Work Phone: US OB BPP W NON-STRESSon 20-57[place], [place] [address] Ultrasound Report Signed Patient: JUHI GAMA MR#: [id number] : 1995 Acct:[id number] Age/Sex: 30 / F ADM Date: 09/19/25 Loc: US Attending Dr: Steph Keane Ordering Physician: Steph Keane Date of Service: 09/19/25 Procedure(s): US OB BPP w non-stress Accession Number(s): [id number] cc: Steph Keane; Yomaira BELTRAN [place] [id number] Patient Name: JUHI GAMA MRN: [id number] date: 1995 Sex: F Assigned Patient Location: [facility] Current Patient Location: Accession/Order Number: [id number] Exam Date: 09/19/2025 10:06 Report Date: 09/19/2025 [...] Morillo M.D. 09/19/2025 12:17 PM Dictation Location: [employer] Electronically authenticated by: [id number] Y Date: 09/19/2025 12:17 Dictated By: Jp Morillo D.O. Signed By: 09/19/25 1219 DD/ 16 TD/TT: Manager Work:SATNAMadiolRandell malagon, - 09/19/2025 [place] [id number] Ultrasound Report Signed Patient: JUHI GAMA MR#: [id number] : 1995 Acct:[id number] Age/Sex: 30 / F ADM Date: 09/19/25 Loc: US Attending Dr: Steph Keane Ordering Physician: Steph Keane Date of Service: 09/19/25 Procedure(s): US OB BPP w non-stress Accession Number(s): [id number] cc: Steph Keane; Yomaira BELTRAN [place] [id number] Patient Name: JUHI GAMA MRN: [facility]:[id number] date: 1995 Sex: F Assigned Patient Location: [facility] Current Patient Location: Accession/Order Number: [id number] Exam Date: 09/19/2025 10:06 Report Date: 09/19/2025 [...] Morillo M.D. 09/19/2025 12:17 PM Dictation Location: [employer] Electronically authenticated by: [id number] Y Date: 09/19/2025 12:17 Dictated By: Jp Morillo D.O. Signed By: 09/19/25 1219 DD/ 16 TD/TT: Manager Work: LANETTE HealthcareRadiology Study observation (narrative)NOMS HealthcareUS OB BPP W NON-STRESSOrdered By: Radiologist Radiology on 92-28-5900LLGILafayette Regional Health Center Work Phone: Urinalysis macro (dipstick) panel (U)on 09-16-2025 Bilirubin, UANegativeNegative - 4(70) +++ mg/dLLafayette Regional Health CenterBlood, UANegative Negative - 50 Teodoro/mcLLafayette Regional Health CenterClarity, UAClearNOMI HealthcareColor, UA YellowNOSouthPointe HospitalGlucose, UANegativeNegative - 2000(110) ++++ mg/dLLafayette Regional Health CenterInterpretation and review of laboratory resultsNormalLafayette Regional Health Center Ketones, UANegativeNegative - 160(16) ++++ mg/dLLafayette Regional Health CenterLeukocytes, UA NegativeNegative - 500+++ Robinson/[facility] CenterNitrite, UANegativeNegative - PositiveSALT LAKE REG[facility] HealthcarepH, UA6.05 - 9NOMI HealthcareProtein, UANegativeNegative - 2000(20) ++++ mg/dLLafayette Regional Health CenterSpec Grav, UA1.0101 - 1.03[facility] Urobilinogen, UA1.00.2 - 12 mg/dLI-[facility] HealthcareALL BUNon 31-44-4508Sklh nitrogen [Mass/Vol]8 mg/dL7.0 - 18.0 mg/dLEllis Fischel Cancer Center URIC ACIDon 47-07-8211Erfha [Mass/Vol]3.5 mg/dL2.6 - 6.0 mg/dLLafayette Regional Health CenterCC ALT on 88-60-3728OTX [Catalytic activity/Vol]40 U/L14 - 59 U/[facility] CenterCCF AST on 12-93-7764TJI [Catalytic activity/Vol]24 U/L15 - 37 U/[facility] CenterNo Panel Informationon 59-81-0092Xzeimejtyhqnuy and review of laboratory results AbnormalNOSouthPointe HospitalCLINISYNCNMercy McCune-Brooks HospitalTB CREATININEon 09-03-2025 Creatinine [Mass/Vol]0.42 mg/dLLow0.55 - 1.02 mg/dLLafayette Regional Health CenterGFR/1.73 sq M.predicted CKD-EPI (S/P/Bld) [Vol rate/Area]>60>=60 mL/min/1.73m 2NMercy McCune-Brooks HospitalTB EGFR-NON AF CHINESE>60>=60 mL/min/1.73m 2NOMS HealthcareTB URINE T PROTEIN CREAT RATIOon 79-89-9569BDFXAHXFKZ URINE RANDOM<13.60Opa59.00 - 300.00 mg/dLNOMI HealthcareTOTAL PROTEIN URINE RANDOM<6.0NINF - 11.9 mg/dLSALT LAKE REGIONAL MEDICAL CENTER HealthcareUrinalysis macro (dipstick) panel (U)on 65-30-9464Swdwujrvl, UA NegativeNegative - 4(70) +++ mg/dLSALT LAKE REGIONAL MEDICAL CENTER HealthcareBlood, UANegativeNegative - 50 Teodoro/mcLSALT LAKE REGIONAL MEDICAL [facility] HealthcareClarity, UAClearNOMI HealthcareColor, UAYellowNOMI HealthcareGlucose, UANegativeNegative - 2000(110) ++++ mg/dLSALT LAKE REGIONAL MEDICAL [facility]ENTER Healthcare Interpretation and review of laboratory resultsNormalSALT LAKE [facility] HealthcareKetones, UA NegativeNegative - 160(16) ++++ mg/dLSALT LAKE REGIONAL MEDICAL CENTER HealthcareLeukocytes, UANegative Negative - 500+++ Robinson/[facility] Medical CenterNitrite, UANegativeNegative - Positive NOM HealthcarepH, UA6.55 - 9NOMI HealthcareProtein, UANegativeNegative - 2000(20) ++++ mg/dLSALT LAKE REGIONAL MEDICAL CENTER HealthcareSpec Grav, UA1.0051 - 1.03NOMI Healthcare Urobilinogen, UA2.00.2 - 12 mg/dLFormerly Alexander Community HospitalTB TOTAL PROTEIN 24 HOUR URINEon 61-22-1470Fxcsxnguqrvawj and review of laboratory results AbnormalNOMI HealthcareProtein (U) [Mass/Vol]22.6 mg/dLHighNINF - 11.9 mg/dLLafayette Regional Health CenterTB TOTAL PROTEIN 24 HOUR RZQAZ491.6NINFNOSouthPointe HospitalTOTAL VOLUME 24 HOUR SIBPB144gO/24hrNOMI HealthcareCLINISYNCNSAINT FRANCIS H[facility] – [facility] HealthcareALL CBC WITH AUTO DIFFon 55-12-1066XRFFRTJEG ABSOLUTE AUTO0.1NOMS HealthcareBasophils/100 WBC (Bld)0.5 %0.2 - 2.0 %NOMS HealthcareEosinophils/100 WBC (Bld)1.4 %0.9 - 7.0 % [facility] HealthcareErythrocyte distribution width (RBC) [Ratio]13 %11.0 - 15.0 %[facility] HealthcareHematocrit (Bld) [Volume fraction]34.4 %Low36.0 - 48.0 %[facility] CenterHemoglobin (Bld) [Mass/Vol]11.3 g/dLLow12.0 - 16.0 g/dLLafayette Regional Health Center IMMATURE GRANULOCYTES ABS AUTO0.59HighNOMI HealthcareImmature granulocytes/100 WBC (Bld)4.4 %High0.0 - 0.5 %[facility] CenterInterpretation and review of laboratory resultsAbnormalNOMI HealthcareLYMPHOCYTES ABSOLUTE AUTO2.4NOMI HealthcareLymphocytes/100 WBC (Bld)17.8 %Low20.5 - 60.0 %[facility] CenterH (RBC) [Entitic mass]29.4 pg26.7 - 34.0 pgNOResearch Psychiatric CenterHC (RBC) [Mass/Vol] 32.8 g/dL29.9 - 35.2 g/dLLafayette Regional Health CenterMCV (RBC) [Entitic vol]89.4 fL81.0 - 99.0 fLLafayette Regional Health CenterMONOCYTES ABSOLUTE AUTO1.1HighNOMI HealthcareMonocytes/100 WBC (Bld)8.1 %1.7 - 12.0 %[facility] CenterNEUTROPHILS ABSOLUTE XNFH6PqyuBXZD HealthcareNeutrophils/100 WBC (Bld)67.8 %43.0 - 75.0 %[facility] CenterPlatelet mean volume (Bld) [Entitic vol]9.6 fL9.5 - 13.5 fLLafayette Regional Health CenterTBH EO #0.2NOMS [facility] HospitalTB GRB371TGEN [facility] RBC3.85LowNOMS [facility] WBC13.3High [facility] CenterCLINISYNPrisma Health Laurens County HospitalTB URINE T PROTEIN CREAT RATIOon 33-84-5796GKSMONHLNN URINE RANDOM<13.07Iss75.00 - 300.00 mg/dLLafayette Regional Health Center Interpretation and review of laboratory resultsAbnormalLafayette Regional Health CenterTOTAL PROTEIN URINE RANDOM<6.0NINF - 11.9 mg/dLLafayette Regional Health CenterCLINISYNPrisma Health Laurens County Hospital US OB BPP W NON-STRESSon 63-39-8[address] [address] Ultrasound Report Signed Patient: JUHI GAMA MR#: [id number] : 1995 Acct:[id number] Age/Sex: 30 / F ADM Date: Loc: [facility] 250-[address]: KUNAL HYATT M.D. Ordering Physician: Steph Keane Date of Service: 08/27/25 Procedure(s): US OB BPP w non-stress Accession Number(s): [id number] cc: Steph Keane; Yomaira BELTRAN [place] [address] Patient Name: JUHI GAMA MRN: [facility]:[id number] date: 1995 Sex: F Assigned Patient Location: LAB Current Patient Location: LAB Accession/Order Number: [id number] Exam Date: 08/27/2025 17:37 Report Date: 08/27/2025 [...] Morillo M.D. 08/27/2025 6:02 PM Dictation Location: [place] [address] Electronically authenticated by: [id number] Y Date: 08/27/2025 18:02 Dictated By: Jp Morillo D.O. Signed By: 08/27/251804 DD/ 01 TD/TT: Manager Work:SATNAMadiology, Radiologist, MD - 08/27/2025 [place] [address] Ultrasound Report Signed Patient: JUHI GAMA MR#: [id number] : 1995 Acct:[id number] Age/Sex: 30 / F ADM Date: Loc: [facility] 250-[address]: KUNAL HYATT M.D. Ordering Physician: Steph Keane Date of Service: 08/27/25 Procedure(s): US OB BPP w non-stress Accession Number(s): [id number] cc: Steph Keane; Yomaira BELTRAN [place] [id number] Patient Name: JUHI GAMA MRN: [facility]:[id number] date: 1995 Sex: F Assigned Patient Location: LAB Current Patient Location: LAB Accession/Order Number: [id number] Exam Date: 08/27/2025 17:37 Report Date: 08/27/2025 [...] Morillo M.D. 08/27/2025 6:02 PM Dictation Location: [place] [address] Electronically authenticated by: [id number] Y Date: 08/27/2025 18:02 Dictated By: Jp Morillo D.O. Signed By: 08/27/251804 DD/ 01 TD/TT: Manager Work: LANETTE HealthcareRadiology Study observation (narrative)NOMShalonda SmallUS OB BPP W NON-STRESSOrdered By: Radiologist Radiology on 70-31-8506[facility] Work Phone: Urinalysis macro (dipstick) panel (U)on 08-27-2025 Bilirubin, UANegativeNegative - 4(70) +++ mg/dLNOMS HealthcareBlood, UANegative Negative - 50 Teodoro/mcLNOMS HealthcareClarity, UAClearNOMS HealthcareColor, UA YellowNOMS HealthcareGlucose, UANegativeNegative - 2000(110) ++++ mg/dLNOMS HealthcareInterpretation and review of laboratory resultsNormalLafayette Regional Health Center Ketones, UANegativeNegative - 160(16) ++++ mg/dLSALT LAKE REG[facility]AL [facility]ENTER HealthcareLeukocytes, UA NegativeNegative - 500+++ Robinson/mcLNOMI HealthcareNitrite, UANegativeNegative - PositiveNOMI HealthcarepH, UA65 - 9NOMI HealthcareProtein, UANegativeNegative - 2000(20) ++++ mg/dLSALT LAKE REGIONAL [facility]ICAL [facility]ENTER HealthcareSpec Grav, UA1.0151 - 1.03N[facility] Healthcare Urobilinogen, UA2.00.2 - 12 mg/dLNOMI HealthcareNOMI HealthcareURINE CULTURE, ROUTINEon 36-19-7801Lhcjlutx identified Cx Nom (U) Urine Culture, Routine NOMS HealthcareBacteria identified Cx Nom (U)Mixed urogenital floraNOMI HealthcareBacteria identified Cx Nom (U)25,000-50,000 colony forming units per mLNOMS HealthcareBacteria identified Cx Nom (U)Performed at: - [facility] NOMS HealthcareBacteria identified Cx Nom (U)[address] [place] [address] [id number] HealthcareBacteria identified Cx Nom (U)Transportation Economics Teacher: Cm Sandoval PhD, Phone: [phone] HealthcareCLINISYNWORCESTER COUNTY HOSPITAL Gvuygjezsp4pk hr Glucose Tolerance 100 gm loadon 31-05-7742Zghiwlh Tolerance Test 2 Vzsn778 [facility] County Medical CenterCapillary Glucose POCon 63-59-0363Jzqxhwr [Mass/Vol]88 mg/uDEcjqnc10-95KlkffyCleveland Clinic Akron GeneralComment on above:Performed By: #### [id number] #### [facility] [address], [place] [address]Bva 1 Hron 59-91-4593Tlbbfww [Mass/Vol]152 mg/pNXwwmyr79-907 [facility] GeneralComment on above:Performed By: #### [id number] #### [facility] [address], [place] [address]Qeo 2 Hron 47-19-5899Wfkoqvd [Mass/Vol]169 mg/kEPwif40-397 [facility] GeneralComment on above:Performed By: #### [id number] #### [facility] [address], [place] [address]Dbm 3 Hron 57-05-9973Kplrwlu [Mass/Vol]141 mg/vRUgnc40-222 [facility] GeneralComment on above:Performed By: #### [id number] #### [facility] [address], [place] [address]Jul Fastingon 27-74-0645Olgqewj [Mass/Vol]82 mg/sXTgiite70-52 [facility] GeneralComment on above:Performed By: #### [id number] #### [facility] [address], [place] [address]Tpkkscw tolerance, 1 houron 87-25-7128Vaczvzq Tolerance Test 1 Xqoe827QdtGvwygo Health SystemGlucose tolerance, 3 hourson 23-84-4321Fualhgy Tolerance Test 3 Gnax529YibFdkiac Health SystemGlucose, tolerance fastingon 67-70-6982Mqppkrs Tolerance Test Nrviaos06HldYtwqui Health SystemNo Panel Informationon 22-10-3486JxrMinvotAshtabula County Medical CenterCBC w/ Auto Diffon 08-12-2025 Basophil Absolute0.1 E9/LNormal0.0-0.2Fisher [facility] Medical CenterComment on above:Performed By: #### [id number] #### [facility] [address] [place] [address]Dboiroton/100 WBC (Bld)0.6 %Normal0.0-2.0[facility] GeneralComment on above:Performed By: #### [id number] #### [facility] [address], [place] [address]Uog Absolute0.1 E9/LNormal0.0-0.5[facility] Comment on above:Performed By: #### [id number] #### [facility] [address] [place] [address]Hxctjeoepwp/100 WBC (Bld)1.0 %Normal0.0-8.0[facility] GeneralComment on above:Performed By: #### [id number] #### [facility] [address], [place] [address]Mgwxmmgsgdu distribution width (RBC) [Ratio]12.9 %Normal 10.9-14.2FHolzer HospitalComment on above:Performed By: #### [id number] #### [facility] [address], [place] [address]Idjoyypcdh (Bld) [Volume fraction]33.1 %Low34.0-46.0[facility] GeneralComment on above:Performed By: #### [id number] #### [facility] [address], [place] [address]Hyewczylyh (Bld) [Mass/Vol]11.4 g/dLLow12.0-16.0[facility] GeneralComment on above:Performed By: #### [id number] #### [facility] [address] [place] [address]Wnjkr Absolute2.0 E9/LNormal1.0-4.0[facility] Comment on above:Performed By: #### [id number] #### [facility] [address], [place] [address]Qeczjwyenys/100 WBC (Bld)19.6 %Bwywgp70.0-50.0[facility] GeneralComment on above:Performed By: #### [id number] #### [facility] [address], [place] [address]BZJ (RBC) [Entitic mass]29.9 rtSbjuif80.0-34.0[facility] GeneralComment on above:Performed By: #### [id number] #### [facility] [address], [place] [address]HNHT (RBC) [Mass/Vol]34.4 g/sFNdkxib67.4-36.0[facility] GeneralComment on above:Performed By: #### [id number] #### [facility] [address], [place] [address]CWF (RBC) [Entitic vol]86.7 xKYkcyub89.0-100.0[facility] GeneralComment on above:Performed By: #### [id number] #### [facility] [address], [place] [address]Noue Absolute0.5 E9/LNormal0.2-1.0[facility] Comment on above:Performed By: #### [id number] #### [facility] [address], [place] [address]Ecxqblivr/100 WBC (Bld)4.6 %Normal4.0-14.0[facility] GeneralComment on above:Performed By: #### [id number] #### [facility] [address], [place] [address]Mazyuv Absolute7.5 E9/LNormal2.0-7.5FHolzer Hospital Comment on above:Performed By: #### [id number] #### [facility] [address] [place] [address]Txspzv Auto74.2 %Ogdrgw31.0-75.0[facility] Comment on above:Performed By: #### [id number] #### [facility] [address] [place] [address]Ghamnhyd608.0 E9/FIqdlli747.0-500.0[facility] Comment on above:Performed By: #### [id number] #### [facility] [address] [place] [address]Yvtzrfzn mean volume (Bld) [Entitic vol]8.1 fLNormal6.4-10.8 [facility] GeneralComment on above:Performed By: #### [id number] #### [facility] [address], [place] [address]ZBR7.8 E12/LLow4.3-5.9[facility] GeneralComment on above:Performed By: #### [id number] #### [facility] [address] [place] [address]JND01.1 E9/LNormal4.0-11.0[facility] GeneralComment on above:Performed By: #### [id number] #### [facility] [address], [place] [address]Guexvuupxt 19-75-3641Feddezbl Lvl7 ng/dJIoo09-794WltyflCleveland Clinic Akron GeneralComment on above:Performed By: #### [id number] #### [facility] [address], [place] [address]Jhgajfbc 06-96-2640Kftyrl Lvl>22.3Normal>=6.7FHolzer HospitalComment on above:Performed By: #### [id number] #### [facility] [address], [place] [address]Erka Scr Glu 1 Hron 58-00-1549Igxynqk [Mass/Vol]155 mg/dLHigh 55-140[facility] GeneralComment on above:Performed By: #### [id number] #### [facility] [address] [place] [address]Dsylhgg 1h post 50g loadon 78-45-2876Szkznzc, 1 hr PP 50GM dose 155ProMedica Health SystemIronon 33-26-2711Jjcg60 microgram/yREdmnqy22-454PjbusqCleveland Clinic Akron GeneralComment on above:Performed By: #### [id number] #### [facility] [address], [place] [address]Sr Panel Informationon 44-71-2702UTVM HealthcareTIBC Calculated on 54-02-2066TDEL256 microgram/qPLhbh953-082FbnbvmCleveland Clinic Akron GeneralComment on above:Performed By: #### [id number] #### [facility] [address], [place] [address]Nxhzvduwqrh [Mass/Vol]455 mg/dOPsup735-182WjxbkhCleveland Clinic Akron GeneralComment on above:Performed By: #### [id number] #### [facility] [address], [place] [address]LR OB LIMITED 1+ FETUSESon 20-56-4973BS OB LIMITED 1+ FETUSES FINDINGS: Single viable [...] Delivery: 11/28/25 Gestational Age as of 07/21/2025: 20k4qVzdjkiuvjr macro (dipstick) panel (U)on 08-10-6035Rgvlekrgt, UANegativeNegative - 4(70) +++ mg/dLNOMS HealthcareBlood, UANegativeNegative [...] HealthcareUrobilinogen, UA1.00.2 - 12 mg/dLNOMS HealthcareVit B12on 44-93-0843Eznsyxmqy (Vitamin B12) [Mass/Vol]205 pg/sBYdhzim63-4143Xindxh [facility] Medical CenterComment on above:Performed By: #### [id number] #### [facility] [address], [place] [address]JGK w/ Auto Diffon 06-80-9967Gggfohgp Absolute0.0 E9/LNormal 0.0-0.2Fisher [facility] Medical CenterComment on above:Performed By: #### [id number] #### [facility] [address], [place] [address]Nfdecrzff/100 WBC (Bld)0.2 %Normal0.0-2.0[facility] GeneralComment on above:Performed By: #### [id number] #### [facility] [address] [place] [address]Teb Absolute0.1 E9/LNormal0.0-0.5FHolzer Hospital Comment on above:Performed By: #### [id number] #### [facility] [address], [place] [address]Sbustljpjya/100 WBC (Bld)0.5 %Normal0.0-8.0[facility] GeneralComment on above:Performed By: #### [id number] #### [facility] [address] [place] [address]Yhambjcoigu distribution width (RBC) [Ratio]13.0 %Normal 10.9-14.2FHolzer HospitalComment on above:Performed By: #### [id number] #### [facility] [address] [place] [address]Iepmxvkjyj (Bld) [Volume fraction]31.9 %Low34.0-46.0[facility] GeneralComment on above:Performed By: #### [id number] #### [facility] [address] [place] [address]Peteuemaqh (Bld) [Mass/Vol]11.1 g/dLLow12.0-16.0[facility] GeneralComment on above:Performed By: #### [id number] #### [facility] [address] [place] [address]Zthkk Absolute2.1 E9/LNormal1.0-4.0[facility] Comment on above:Performed By: #### [id number] #### [facility] [address], [place] [address]Zdluwtcbgfk/100 WBC (Bld)16.2 %Rundzn07.0-50.0[facility] GeneralComment on above:Performed By: #### [id number] #### [facility] [address], [place] [address]IFX (RBC) [Entitic mass]29.9 szTpinbp24.0-34.0[facility] GeneralComment on above:Performed By: #### [id number] #### [facility] [address] [place] [address]HBPU (RBC) [Mass/Vol]34.8 g/aDInntxj96.4-36.0[facility] GeneralComment on above:Performed By: #### [id number] #### [facility] [address] [place] [address]UQU (RBC) [Entitic vol]85.7 eKItabsr27.0-100.0[facility] GeneralComment on above:Performed By: #### [id number] #### [facility] [address] [place] [address]Jamq Absolute0.9 E9/LNormal0.2-1.0[facility] Comment on above:Performed By: #### [id number] #### [facility] [address] [place] [address]Xxgrnwkuc/100 WBC (Bld)7.0 %Normal4.0-14.0[facility] GeneralComment on above:Performed By: #### [id number] #### [facility] [address] [place] [address]Flcehw Absolute9.7 E9/LHigh2.0-7.5[facility] Comment on above:Performed By: #### [id number] #### [facility] [address] [place] [address]Yhwgof Auto76.1 %High36.0-75.0[facility] Comment on above:Performed By: #### [id number] #### [facility] [address] [place] [address]Ddvrbxwf698.0 E9/IFrioyr784.0-500.0[facility] Comment on above:Performed By: #### [id number] #### [facility] [address], [place] [address]Qkmnqavr mean volume (Bld) [Entitic vol]8.0 fLNormal6.4-10.8 [facility] GeneralComment on above:Performed By: #### [id number] #### [facility] [address], [place] [address]WMJ2.7 E12/LLow4.3-5.9[facility] GeneralComment on above:Performed By: #### [id number] #### [facility] [address], [place] [address]RSW28.8 E9/LHigh4.0-11.0[facility] GeneralComment on above:Performed By: #### [id number] #### [facility] [address], [place] [address]BICpj 29-52-7387VP3 [Moles/Vol]20 mmol/SKgb30-44VnluxiCleveland Clinic Akron GeneralComment on above:Performed By: #### [id number] #### [facility] [address], [place] [address]Vdarl gap [Moles/Vol]16 mmol/LNormal6-16[facility] GeneralComment on above:Performed By: #### [id number] #### [facility] [address], [place] [address]Bjtuzyv [Mass/Vol]3.8 g/dLNormal3.3-5.0[facility] GeneralComment on above:Performed By: #### [id number] #### [facility] [address], [place] [address]Grwgqih/Globulin [Mass ratio]1.3 {ratio}Normal1.1-2.2FHolzer HospitalComment on above:Performed By: #### [id number] #### [facility] [address], [place] [address]Zev Phos78 Int._Unit/QKqtdod89-61KuenvwCleveland Clinic Akron General Comment on above:Performed By: #### [id number] #### [facility] [address], [place] [address]CMU79 Int._Unit/LNormal6-46[facility] GeneralComment on above:Performed By: #### [id number] #### [facility] [address], [place] [address]KTG47 Int._Unit/LNormal5-43[facility] GeneralComment on above:Performed By: #### [id number] #### [facility] [address], [place] [address]Vxqz Total0.8 mg/dLNormal0.0-1.1FHolzer Hospital Comment on above:Performed By: #### [id number] #### [facility] [address], [place] [address]UEJ/Creat Ratio18 No FxsnsElgqcy01-73OngtzlCleveland Clinic Akron GeneralComment on above:Performed By: #### [id number] #### [facility] [address], [place] [address]Uhrpvjc [Mass/Vol]8.9 mg/dLNormal8.9-11.1FHolzer HospitalComment on above:Performed By: #### [id number] #### [facility] [address], [place] [address]Osasvjbe [Moles/Vol]104 mmol/DCaqxiv058-706TuogbmCleveland Clinic Akron GeneralComment on above:Performed By: #### [id number] #### [facility] [address], [place] [address]Tvujapbxls [Mass/Vol]0.6 mg/dLNormal0.5-1.3FHolzer HospitalComment on above:Performed By: #### [id number] #### [facility] [address], [place] [address]Pkutixcn (S) [Mass/Vol]3.0 g/dLNormal1.4-4.0[facility] GeneralComment on above:Performed By: #### [id number] #### [facility] [address], [place] [address]Dzuiztu [Mass/Vol]92 mg/bVZdsfhe25-015WjldjfCleveland Clinic Akron GeneralComment on above:Performed By: #### [id number] #### [facility] [address], [place] [address]Pgnbllaka [Moles/Vol]3.7 mmol/LNormal3.5-5.3FHolzer HospitalComment on above:Performed By: #### [id number] #### [facility] [address], [place] [address]Hpuhnea [Mass/Vol]6.8 g/dLNormal6.0-7.8[facility] GeneralComment on above:Performed By: #### [id number] #### [facility] [address], [place] [address]Raedua [Moles/Vol]136 mmol/RYwcmuz508-365MneswjCleveland Clinic Akron GeneralComment on above:Performed By: #### [id number] #### [facility] [address], [place] [address]Gcog nitrogen [Mass/Vol]11 mg/dLNormal5-21[facility] GeneralComment on above:Performed By: #### [id number] #### [facility] [address], [place] [address]Obzgt Panelon 87-25-7978Smgiynyyrvc [Mass/Vol]239 mg/dLHigh 120-200[facility] GeneralComment on above:Performed By: #### [id number] #### [facility] [address], [place] [address]Erfnmnkrgde in HDL [Mass/Vol]88 mg/dLInvalid Interpretation CodeCleveland Clinic Akron GeneralComment on above:Result Comment: '>= 60 LOW RISK' '<= 40 HIGH RISK'Performed By: #### [id number] #### [facility] [address], [place] [address]Stulofiicyk in LDL [Mass/Vol]144 mg/dLHigh<=129[facility] GeneralComment on above:Performed By: #### [id number] #### [facility] [address] [place], [place] [address]Zffgqlqsiyi in VLDL [Mass/Vol]40 mg/dLNormal7-40[facility] GeneralComment on above:Performed By: #### [id number] #### [facility] [address], [place] [address]Ooujmmdpkmgo [Mass/Vol]202 mg/dLHigh<=149[facility] GeneralComment on above:Performed By: #### [id number] #### [facility] [address] [place], [place] [address]yKHLhw 54-28-9586kDGS210 mL/min/1.73 n2Lahhtv>=59[facility] GeneralComment on above:Performed By: #### [id number] #### [facility] [address], [place] [address]PLN, SERUM, OPEN SPINA BIFIDAon 74-06-5612SMT MOM0.95.[facility] HealthcareAFP VALUE59.2 ng/mL.[facility] HealthcareCOMMENT:Comment.[facility] Healthcare Comment on above:Amy Ramos, Ph.D., [facility] Director References: Available Upon Request. Multiples Of Median Cutoffs For AFP Elevations Hsieh 2.5 Black 2.8 IDD 2.0 Twins 4.5 Abbreviation Definitions IDD - Insulin Dep Diabetes OSBR - Open Spina Bifida Risk For further inquiries contact [employer] [facility] at [phone]. This test was developed and its performance characteristics determined by [employer]. It has not been cleared or approved by the Food and Drug Administration. Performed at: [facility] [address], [place] [id number] Transportation Economics Teacher: Dona Justin [facility], Phone: [phone] GEST. AGE ON COLLECTION DATE20.6. weeksNOMS HealthcareGESTAT. AGE BASED ONLMP. NOMS HealthcareComment on above:Recalculations are not recommended when gestational dating by LMP and ultrasound are within 10 days. INSULIN DEP DIABETESNo.[facility] CenterINTERPRETATIONComment.[facility] Comment on above:Interpretation: Screen Negative This [...] Customer Services to discuss available options. The [employer] recommends amniocentesis be offered to women age 35 and older. MATERNAL AGE AT EDD30.7. yrNOMI HealthcareMULTIPLE GESTATIONNo.[facility] OSBR RISK 1 [id number].[facility] Health CenterRACECaucasian.[facility] CenterRESULTSReport. [facility] CenterTEST RESULTS:Negative.[facility] Health CenterQjrbxyunahXFCHEU619. lbWestern State Hospital HealthcarePREGNANCY N N LMP [id number] 2 17 N 1 Y 146 N N N N N White/ CLINISYNCNOMI HealthcareUS OB 14+ WEEKS ANATOMY SCANon 51-14-4119EK OB 14+ WEEKS ANATOMY SCANEXAM: US OB [...] II, MD, PHD at 16-Jul-2025 08:07:07 AM [facility] TeleradiologyNormalNot AvailableComment on above:Order Comment: US OB ANATOMY SINGLE W US OB CERVICAL LENGTH Estimated Date of Delivery: 11/28/25 Gestational Age as of 06/22/2025: 51y6uWqpaidlovp macro (dipstick) panel (U)on 52-25-0027Nuxeuqrga, UANegativeNegative - 4(70) +++ mg/dLNOMS HealthcareBlood, UANegativeNegative [...] 12 mg/dLNOMS HealthcareNOMS Healthcare RECURRENT VAGINITIS (HTRX)on 00-95-7541CEOWMXUKF XZIAQTL3KENN Healthcare ATOPOBIUM VAGINAENot detectedNOMS HealthcareBVAB 2,3 (BACTERIAL VAGINOSIS ASSOCIATED BACTERIA 2, 3); MOBILUNCUS ZCE4LAIG HealthcareBVAB 2,3 (BACTERIAL VAGINOSIS ASSOCIATED BACTERIA 2, 3); MOBILUNCUS SPPNot detectedNOMS Healthcare RADHA ALBICANS, PARAPSILOSIS, RHDMQFXRGO0YUQO HealthcareCANDIDA ALBICANS, PARAPSILOSIS, TROPICALISNot detectedNOMS HealthcareCANDIDA OLTQJWIR1TPTW HealthcareCANDIDA GLABRATANot detectedNOMS HealthcareCANDIDA VZGHVF8RIHC HealthcareCANDIDA KRUSEINot detectedNOMS HealthcareCHLAMYDIA OPVLBLQTUNC2YWGU HealthcareCHLAMYDIA TRACHOMATISNot detectedNOMS HealthcareGARDNERELLA VAGINALIS 17.967AbnormalNOMS HealthcareGARDNERELLA VAGINALISDetectedAbnormalNOMI HealthcareInterpretation and review of laboratory resultsAbnormalNOMI Healthcare MEGASPHAERA (TYPES 1, 2)0NOMS HealthcareMEGASPHAERA (TYPES 1, 2)Not detectedNOMS HealthcareMYCOPLASMA NSVFTXRWTN8DEBX HealthcareMYCOPLASMA GENITALIUMNot detectedNOMS HealthcareNEISSERIA YEWYRWKGSLN0CUHB HealthcareNEISSERIA GONORRHOEAENot detectedNOMS HealthcareTRICHOMONAS LCORYWISD4NUSL Healthcare TRICHOMONAS VAGINALISNot detectedNOMS HealthcareNOMS HealthcareUrinalysis macro (dipstick) panel (U)on 25-44-8119Wjtaursbo, UANegativeNegative - 4(70) +++ mg/dL NOMS HealthcareBlood, [...] mg/dLNOMI HealthcareNOMI HealthcareUrinalysis macro (dipstick) panel (U)on 82-66-5400Ktqpeznvc, UA NegativeNegative - 4(70) +++ mg/dLNOMI HealthcareBlood, UANegativeNegative - 50 Teodoro/mcLNOMI HealthcareClarity, UAClearNOMS HealthcareColor, UAYellowNOMI HealthcareGlucose, UANegativeNegative - 2000(110) ++++ mg/dLSALT LAKE REGIONAL [facility]ICAL [facility] Healthcare Interpretation and review of laboratory resultsNormalS[facility] HealthcareKetones, UA NegativeNegative - 160(16) ++++ mg/dLSALT LAKE REGIONAL MEDICAL CENTER HealthcareLeukocytes, UAPositive Negative - 500+++ Robinson/mcLSALT LAKE REGIONAL MEDICAL [facility]ENTER HealthcareComment on above:smallNitrite, UA NegativeNegative - PositiveNOMI HealthcarepH, UA6.55 - 9NOMS HealthcareProtein, UANegativeNegative - 1999(20) ++++ mg/dLNOMI HealthcareSpec Grav, UA1.011 - 1.03 NOMS HealthcareUrobilinogen, UA0.20.2 - 12 mg/dLI-[facility] BOX TESTon 08-23-1804XLO TEST SENT OUTunHumboldt General Hospital (HulmboldtIjaowfhkkqVWG4cfvwxATWB AkbiymjxvlJCH61/08/20NOSouthPointe HospitalUNITY BOX CLINISYNCCBC without diffon 15-96-4480Teqhrcynox (Bld) [Volume fraction]39.8 % [facility] SystemHemoglobin (Bld) [Mass/Vol]13.2 g/dLAshtabula County Medical CenterPlatelets (Bld) [#/Vol]390 10*3/uLAshtabula County Medical CenterRbc Mcv (Fl) By Automated Count84.7As[facility] County Medical CenterDrug Screen, Urineon 05-04-2025 Amphetamine/MethamphetamineNegativeL[facility] Hospital SystemBarbituratesNegative [facility] SystemBenzodiazepinesNegativeL[facility] Hospital SystemCocaine MetaboliteNegativeL[facility]aster Municipal Hospital SystemMethadoneNegativeL[facility] Municipal Hospital SystemOpiatesNegativeProMedica Health SystemOxycodoneNegativeProMedica Health SystemPhencyclidineNegativeProMedica Health SystemThc Marijuana, UrineNegative [facility] SystemHBV surface Ag IA Qlon 93-43-1157Iwkcfkfmt B Surface AntigenNegativeProMedica Health SystemHCV Ab IA Qlon 54-11-0901HMF Ab Ql (S) Non-ReactiveProMedimi Health SystemHIV 1+2 Ab+HIV1 p24 Ag IA Qlon 73-47-4651PQA 1&2 AB/AGNon-ReactiveLancaster Municipal Hospital SystemHemoglobin A1con 49-79-9592XqY2y (Bld) [Mass fraction]5.3 %4.0 - 6.0 %[facility] SystemNo Panel Information on 59-12-7059GXCY HealthcareRubella IGG immune statusOrdered By: Angeline Velasquez on 29-71-4528Azqrfpw immune IgGProFlorala Memorial Hospital Health SystemType and screenon 25-84-6152Lhd/Rh(D)PositiveProBlanchard Valley Health System Bluffton HospitalHCG ( test) Ql (U)on 61-43-6023Pqlzmvfcatuzrn and review of laboratory resultsAbnormalNOMI Healthcare Preg Test, UrPositiveNegativeNOSouthPointe HospitalNOMI HealthcareUS OB TRANSVAGINALon 91-51-6213AduWap[place], [place] [address] Ultrasound Report Signed Patient: JUHI COPE MR#: [id number] : 1995 Acct:[id number] Age/Sex: 30 / F ADM Date: 05/01/25 Loc: US Attending Dr: Nathan Pop D.O. Ordering Physician: Nathan Pop D.O. Date of Service: 05/01/25 Procedure(s): US OB transvaginal Accession Number(s): [id number] cc: Nathan Pop D.O.; Physician,Non-Staff Katherine The [address] [address] Patient Name: JUHI COPE MRN: [id number] date: 1995 Sex: F Assigned Patient Location: US Current Patient Location: US Accession/Order Number: [id number] Exam Date: 05/01/2025 08:57 Report Date: 05/01/2025 09:01 At the request of: NATHAN OPP DO Procedure: US OB transvaginal US OB [...] Faria M.D. 05/01/2025 9:01 AM Dictation Location: [place] [address] Electronically authenticated by: [id number] Y Date: 05/01/2025 09:01 Dictated By: Will Faria M.D. Signed By: 05/01/2504 DD/ 0 TD/TT: Manager Work:TBHRadiology, Radiologist, MD - 05/01/2025 [place] [address] Ultrasound Report Signed Patient: JUHI COPE MR#: [id number] : 1995 Acct:[id number] Age/Sex: 30 / F ADM Date: 05/01/25 Loc: US Attending Dr: Nathan Pop D.O. Ordering Physician: Nathan Pop D.O. Date of Service: 05/01/25 Procedure(s): US OB transvaginal Accession Number(s): [id number] cc: Nathan Pop D.O.; Physician,Non-Staff Katherine [address] [address] Patient Name: JUHI COPE MRN: [id number] date: 1995 Sex: F Assigned Patient Location: US Current Patient Location: US Accession/Order Number: [id number] Exam Date: 05/01/2025 08:57 Report Date: 05/01/2025 [...] Faria M.D. 05/01/2025 9:01 AM Dictation Location: [place] [address] Electronically authenticated by: [id number] Y Date: 05/01/2025 09:01 Dictated By: Will Faria M.D. Signed By: 05/01/25903 DD/ 0 TD/TT: Manager Work: LAN[facility] HealthcareRadiology Study observation (narrative)LANETTE SmallUS OB TRANSVAGINALOrdered By: Radiologist Radiology on 75-58-0908PUHZ Healthcare Work Phone: Urinalysis macro (dipstick) panel [...] mg/dLNOMS HealthcareNOMS HealthcareCHEMISTRYOrdered By: SYSTEM SYSTEM on 27-12-2733Igbgytnkizyi Lvl31.35 ng/mLInvalid Interpretation CodeRemisol ChemComment on above:Result Comment: 'F NON FOLLICULAR = 0.10 - 0.60' 'LUTEAL = 3.00 - 17.5' 'MIDLUTEAL = 3.30 - 18.6' 'POST-MENOPAUSE = 0.10 - 0.40' '-FIRST TRIMESTER = 8.30 - 66.5' 'SECOND TRIMESTER = 18.9 - 66.1' 'THIRD TRIMESTER = 35.8 - 312.4' 'MALES = 0.14 - 2.06'Progesteroneon 31-52-7624Xgukglifkwsf Lvl31.35 ng/mLInvalid Interpretation CodeCleveland Clinic Akron GeneralComment on above:Result Comment: 'F NON FOLLICULAR = 0.10 - 0.60' 'LUTEAL = 3.00 - 17.5' 'MIDLUTEAL = 3.30 - 18.6' 'POST-MENOPAUSE = 0.10 - 0.40' '-FIRST TRIMESTER = 8.30 - 66.5' 'SECOND TRIMESTER = 18.9 - 66.1' 'THIRD TRIMESTER = 35.8 - 312.4' 'MALES = 0.14 - 2.06'Performed By: #### [id number] #### [facility] [address] [place], [place] [address]Idrvvnuitsxfrs 05-92-0450Uffmjliizpsi0.2 ng/mLNormal.The Firsthealth Physician GroupComment on above:Result Comment: Follicular phase 0.1 - 0.9 Luteal phase 1.8 - 23.9 Ovulation phase 0.1 - 12.0 First trimester 11.0 - 44.3 Second trimester 25.4 - 83.3 Third trimester 58.7 - 214.0 Postmenopausal 0.0 - 0.1 Performed at: - [facility] [id number] Transportation Economics Teacher: Cm Sandoval PhD, Phone: [phone] PERFORMED BY: [address] [place] [address] PATHOLOGIST CARE ASST ARNULFO THOMAS M.D.Performed By: #### PROG #### [facility] , Transvaginal Non-OBon 42-78-5627AW Transvaginal Non-OBExam Date/Time: 01/22/2025 16:22 EST Reason for Exam: N94.6 Report PLEASE SEE US Pelvis Non-OB Complete REPORT DATED: 01/22/2025. Ordering Provider: Nathan POP FINAL REPORT Dictated: 01/27/2025 10:11 am Siddharth Foy MD Signed (Electronic Signature): 01/27/2025 10:11 am Signed by: Siddharth Foy MD Transcribed by: ELOISA Technologist: Filiberto [facility] CenterUS Pelvis Non-OB Completeon 08-78-2400SK Pelvis Non-OB CompleteExam Date/Time: 01/22/2025 16:24 EST [...] Kate Gonzalez MD Transcribed by: ELOISA Technologist: TalyaCleveland Clinic Akron GeneralMILADY,APTIMA HPV,AGE GDLNon 35-53-0779TBZ GDLN ACOG TESTINGNote.NOMS HealthcareComment on above:TESTS RESULT FLAG UNITS REF RANGE LAB Clinician Provided Cytology Information Source.............Cervix;Endocervix No. of containers..01 ThinPrep Vial Age Algo ACOG Sarah... -24 12 FLAG LEGEND: L-Low Normal,H-High Normal,LL-Alert Low,HH-Alert High <-Panic Low,>-Panic High,A-Abnormal,AA-Critical Abnormal Performed at: 01 =G [facility] [place] [address] Loren Oneal MD, IGP, RFX APTIMA HPV ASCUNote.[facility] HealthcareComment on above:TESTS RESULT FLAG UNITS REF RANGE LAB DIAGNOSIS: 02 NEGATIVE FOR INTRAEPITHELIAL LESION OR MALIGNANCY. Specimen adequacy: 02 Satisfactory for evaluation. Endocervical and/or squamous metaplastic cells (endocervical component) are present. Performed by: Sophia Calzada, Rivet Sorter ([facility]) . 02 Note: Note 02 The [...] <-Panic Low,>-Panic High,A-Abnormal,AA-Critical Abnormal Performed at: [address] [address] Loren Oneal MD, Performed at: =G - [facility] [id number] Transportation Economics Teacher: Loren Oneal MD, Phone: [phone] Performed at: [facility] [id number] Transportation Economics Teacher: Loren Oneal MD, Phone: [phone] BRUSH-SPATULA CERVIX ENDOCERVIX [facility] 27-82-6413ZKBRBzecrkwry (WHQ) JUHI COPE ([id number]) 1995 F Date Time Provider Department 04/29/24 [...] [I10] Encounter Status:Closed by CANDIS GARCES [facility]/24[facility] 13-76-8478OIKNHehzrcqnd (WHQ) JUHI COPE ([id number]) 1995 F Date Time Provider Department 04/25/24 CHARLENE RODRIGUEZ During your visit today, we recorded the following information about you: Anna De Leon 04/25/2024 1:10 PM Signed 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 Please cancel surgery and all pre and [...] Encounter Status:Closed by SUSI DE LEONLEY on 04/25/24[facility] 12-LEADon 94-33-8636[address] [address] Electrocardiograph Report Signed Patient: JUHI COPE MR#: [id number] : 1995 Acct:[id number] Age/Sex: 28 / F ADM Date: 02/13/24 Loc: PST Attending Dr: Nathan Pop D.O. Ordering Physician: Nathan Pop D.O. Date of Service: 02/13/24 Procedure(s): ECG 12 lead Accession Number(s): [id number] cc: [facility] Test Date: 2024-02-13 Pat Name: JUHI COPE Department: Room: - Gender: Female Drafter Directional Survey: : 1995 Requested By: NATHAN POP Order Number: [id number] Reading MD: MARY KATE ORDAZ Measurements Intervals [place] Rate: 86 P: 31 KS: 133 QRS: 20 QRSD: 89 T: 47 QT: 374 QTc: 449 Interpretive Statements SINUS RHYTHM No previous ECG available for comparison Electronically Signed On 02-14-2024 6:50:27 EDT by MARY KATE ORDAZ Dictated By: Mary Kate Ordaz D.O. Signed By: 02/14/24 0650 DD/ 1455 TD/TT: Manager Work:TBHRadiology, Radiologist, MD - 02/14/[address] [address] Electrocardiograph Report Signed Patient: JUHI COPE MR#: [id number] : 1995 Acct:[id number] Age/Sex: 28 / F ADM Date: 02/13/24 Loc: PST Attending Dr: Nathan Pop D.O. Ordering Physician: Nathan Pop D.O. Date of Service: 02/13/24 Procedure(s): ECG 12 lead Accession Number(s): [id number] cc: [facility] Test Date: 2024-02-13 Pat Name: JUHI COPE Department: Room: - Gender: Female Drafter Directional Survey: : 1995 Requested By: NATHAN POP Order Number: [id number] Reading MD: MARY KATE ORDAZ Measurements Intervals [place] Rate: 86 P: 31 KS: 133 QRS: 20 QRSD: 89 T: 47 QT: 374 QTc: 449 Interpretive Statements SINUS RHYTHM No previous ECG available for comparison Electronically Signed On 02-14-2024 6:50:27 EDT by MARY KATE ORDAZ Dictated By: Mary Kate Ordaz D.O. Signed By: 02/14/24 0650 DD/ 1455 TD/TT: Manager Work: [facility] HealthcareECG 12-LEADOrdered By: Radiologist Radiology on 70-84-1732[facility] Work Phone: ECG 12-LEADon 33-40-6720Dzqljquap Study observation (narrative)LANETTE HealthcareUS PELVIS W/ TRANSVAGINALon 99-70-0175WkgWap[place], [place] [address] Ultrasound Report Signed Patient: JUHI COPE MR#: [id number] : 1995 Acct:[id number] Age/Sex: 28 / F ADM Date: 01/15/24 Loc: [facility] Attending Dr: Nathan Pop D.O. Ordering Physician: Nathan Pop D.O. Date of Service: 01/15/24 Procedure(s): US pelvis w/ transvaginal Accession Number(s): [id number] cc: Nathan Pop D.O.; Physician,Non-Staff Katherine The [address] [address] Patient Name: JUHI COPE MRN: [id number] date: 1995 Sex: F Assigned Patient Location: [facility] Current Patient Location: [facility] Accession/Order Number: [id number] Exam Date: 01/15/2024 07:57 Report Date: 01/15/2024 [...] Signed By: 01/15/24 1144 DD/ 1142 TD/TT: Manager Work:TBHRadiology, Radiologist, - 01/15/2024 [place] [address] Ultrasound Report Signed Patient: JUHI COPE MR#: [id number] : 1995 Acct:[id number] Age/Sex: 28 / F ADM Date: 01/15/24 Loc: [facility] Attending Dr: Nathan Pop D.O. Ordering Physician: Nathan Pop D.O. Date of Service: 01/15/24 Procedure(s): US pelvis w/ transvaginal Accession Number(s): [id number] cc: Nathan Pop D.O.; Physician,Non-Staff M.DKaren The [place] [id number] Patient Name: JUHI COPE MRN: [id number] date: 1995 Sex: F Assigned Patient Location: [facility] Current Patient Location: [facility] Accession/Order Number: [id number] Exam Date: 01/15/2024 07:57 Report Date: 01/15/2024 [...] Signed By: 01/15/24 1144 DD/ 1142 TD/TT: Manager Work: [facility] HealthcareRadiology Study observation (narrative)[facility] HealthcareUS PELVIS W/ TRANSVAGINALOrdered By: Radiologist Radiology on 51-01-1864XHLQ SCOUPY Work Phone: cNPTanya [phone] (Q) JUHI COPE ([id number]) 1995 F Date Time Provider Department 12/12/23 [...] [I10] Encounter Status:Closed by CANDIS GARCES on 12/12/23[facility] 27-46-1613HVXRRjinrf Visit (GYMGME) JUHI COPE ([id number]) 1995 F Date Time Provider Department 12/10/23 10:30 AM CHARLENE RODRIGUEZ During your visit today, we recorded the following information about you: Pulse Blood pressure Weight 98/minute 124/84 68.9 kg Charlene Rodriguez DO 12/10/2023 3:14 PM Signed [facility] SECTION FOR MINIMALLY INVASIVE GYNECOLOGIC SURGERY OUTPATIENT VISIT DATE 12/10/2023 OUTPATIENT VISIT TYPE Follow-up visit PRIMARY CARE PHYSICIAN: Denny Rodríguez [address] [place] [address] REFERRING PHYSICIAN: Self CHIEF COMPLAINT: No chief [...] MRI: no evidence of Past Gynecologic History: Store Person History LMP: 07/08/2023 (Exact Date), Having periods Age at Menarche: 14 Age at First : 27 Age at Menopause: Store Person History Comments: Sexual Activity: Never; No partner [...] Skin: Skin color, texture (more content not included)...NormalOhio Valley Surgical Hospitalology Cervical or vaginal smear or scraping studyon 66-22-1921IJIE HealthcareCNPNon 52-47-0649RJWXRfamlkfto ([facility]) JUHI COPE ([id number]) 1995 F Date Time Provider Department 08/02/23 CHARLENE RODRIGUEZ [facility] During your visit today, we recorded [...] completed via Cover MyMeds. Juhi Cope (Morales: [id number]) - [id number] Orilissa 150MG tablets Status: Sent To Plan [...] [I10] Encounter Status:Closed by JENIFER LYNN on 08/02/23[facility] 44-29-6403GJMRXtpxrn Visit (GYMGME) JUHI COPE ([id number]) 1995 F Date Time Provider Department 07/16/23 11:30 AM CHARLENE RODRIGUEZ During your visit today, we recorded the following information about you: Blood pressure Last Period 136/90 07/08/23 Charlene Rodriguez DO 07/16/2023 12:41 PM Signed [facility] SECTION FOR MINIMALLY INVASIVE GYNECOLOGIC SURGERY OUTPATIENT VISIT DATE 07/16/2023 OUTPATIENT VISIT TYPE Follow-up visit PRIMARY CARE PHYSICIAN: Denny Rodríguez [address] [place] [address] REFERRING PHYSICIAN: Denny Rodríguez CHIEF COMPLAINT: No [...] additional bowel lesions identified Past Gynecologic History: Store Person History LMP: 07/08/2023 (Exact Date), Having periods Age at Menarche: 14 Age at First : 27 Age at Menopause: Store Person History Comments: Sexual Activity: Never; No partner [...] POSITIVES IN BOLD Cons (more content not included)...NormalUc HealthMRI FEMALE PELVIS WO/W IVCONon 16-85-5826PXH FEMALE PELVIS WO/W IVCON* * *Final Report* * * DATE OF EXAM: Jun 12 2023 2:47PM [facility] 0713 - MRI FEMALE PELVIS [...] additional findings. IMPRESSION: No deep infiltrating endometriosis. Manager Work: DAVID Transcribe Date/Time: Jun 12 2023 2:54P Dictated by : ASHLEY DUKE MD This examination was interpreted and the report reviewed and electronically signed by: SONIDO FLAHERTY MD on Jun 12 2023 4:51PM EST [id number] Health PrebleCNPNon 56-50-2499BCBBFpztsphab (GYNMN) JUHI COPE ([id number]) 1995 F Date Time Provider Department 05/11/23 CHARLENE RODRIGUEZ GYNMN During your visit today, we recorded the following information about you: Tawana Nair [facility] 05/11/2023 1:21 PM Signed Reason for call: [...] aygestin 5mg daily. She did not picker / packer flexeril. Encourage to picker / packer the flexeril as this will help with the cramping. Reviewed red flag bleeding symptoms that require trip to ER (soaking greater than one overnight pad per hour, chest pain, shortness of breath, fatigue, palpitations).. Advised keep appt. Gives verbal understanding. Appointments for Next 60 Days Date Time Provider Location Dept Phone 05/17/2023 1:00 PM CHARLENE RODRIGUEZ [facility] [phone] Candis Suárez RN Allergies As of Date: 05/11/2023 (No Known Allergies) Date Reviewed: 05/09/2023 Reviewed by: Jihan Downs APRN.POTTER OR CERAMIC ARTIST - Fully Assessed Reason for Visit: Vaginal [...] [I10] Encounter Status:Closed by CANDIS WILLINGHAM on 05/11/23[facility] SystemGracie 99-93-5246CIRXXitmur Visit ([facility]) NITO COPEIS ([id number]) 1995 F Date Time Provider Department 05/01/23 10:30 AM JIHAN DOWNS [facility] During your visit today, we recorded the following information about you: Blood pressure Weight Height Last Period 148/64 64.9 kg 1.575 m 04/22/23 Jihan Downs APRN.POTTER OR CERAMIC ARTIST 05/09/2023 11:46 AM Signed Juhi Cope is a 28 year old female who presents for problem visit for pain HPI: Pain is week before period and week of period. Worse on her period for every day she's bleeding Urinary - No symptoms GI - Always constipated. No meds [place] - painful always Pain is on left [...] L0 SAB0 IAB0 Ectopic0 Multiple0 Live Births0 Store Person History LMP: 03/26/2023 (Approximate), Having periods Age at Menarche: Age at First : Age at Menopause: Store Person History Comments: Sexual Activity: Never; No partner [...] physical therapy - or can go locally pelvicBiodesixab.Feedsky Trial flexeril at bedtime Can consider Baclofen [...] physical therapy - or can go locally pelvicBiodesixab.Feedsky Trial flexeril at bedtime Can consider Baclofen suppositories - let me know if you want to trial after you go to PT Contin (more content not included)...NormalUc HealthCHEMISTRY Ordered By: SYSTEM SYSTEM on 99-50-5574Dcpyvpc [Mass/Vol]4.3 g/dLNormal3.3 - 5.0 gm/dLFT RemisolAlbumin/Globulin [Mass [...] [Mass/Vol]8.8 mg/dLLow8.9 - 11.1 mg/dLFTMC RemisolChloride [Moles/Vol]100 mmol/KRsm416 - 111 mmol/LFTMC RemisolCO2 [Moles/Vol]24 mmol/L Poqloz35 - 31 mmol/LFTMC RemisolCreatinine [Mass/Vol]1.0 mg/dLNormal0.5 - 1.3 mg/dLFTMC RemisolGFR/1.73 sq M.predicted among blacks MDRD (S/P/Bld) [Vol rate/Area]mL/min/1.73 x3Ouqloa>=59mL/min/1.73 m2[facility] Chem SGFR/1.73 sq M.predicted among non-blacks MDRD (S/P/Bld) [Vol rate/Area]mL/min/1.73 f6Zlpbcu >=59mL/min/1.73 m2[facility] Chem SGlobulin (S) [Mass/Vol]3.6 g/dLNormal1.4 - 4.0 gm/dLFTMC RemisolGlucose [Mass/Vol]104 mg/sDGjofzn01 - 199 mg/dLFTMC Remisol Potassium [Moles/Vol]3.6 mmol/LNormal3.5 - 5.3 mmol/LFTMC RemisolProtein [Mass/Vol]7.9 g/dLHigh6.0 - 7.8 gm/dLFTMC RemisolSodium [Moles/Vol]134 mmol/LLow 135 - 145 mmol/LFTMC RemisolUrea nitrogen [Mass/Vol]10 mg/dLNormal5 - 21 mg/dL [facility] RemisolUrea nitrogen/Creatinine [Mass ratio]10 mg/osLokarb24 - 20FTMC RemisolHEMATOLOGYOrdered By: Amairani Jenkins on 57-28-5481Kaczwaetjjli Ql (Bld) Present (01/31/23 2:10 PM)NormalFTMC HemeManSSErythrocyte [...] fLNormal6.4 - 10.8 fLFTMC HemeAutoSSPlatelets (Bld) [#/Vol]471.0 E9/VMjvtjz587.0 - 500.0 E9/LFTMC HemeAutoSSRBC (Bld) [#/Vol]4.3 E12/LNormal4.3 [...] - 0.5 E9/L [facility] HemeAutoSSLymphocytes/100 WBC (Bld)31.7 %Wbcdcd52.0 - 50.0 %[facility] HemeAutoSS Lymphocytes/Leukocytes Auto (Bld) [Pure # fraction]2.4 E9/LNormal1.0 - 4.0 E9/L [facility] HemeAutoSSMonocytes/100 WBC (Bld)9.1 %Normal4.0 - 14.0 %[facility] HemeAutoSS Monocytes/Leukocytes Auto (Bld) [Pure # fraction]0.7 E9/LNormal0.2 - 1.0 E9/L [facility] HemeAutoSSNeutrophils/100 WBC (Bld)57.4 %Bugjon39.0 - 75.0 %[facility] HemeAutoSS Neutrophils/Leukocytes Auto (Bld) [Pure # fraction]4.3 E9/LNormal2.0 - 7.5 E9/L [facility] HemeAutoSSSEROLOGYOrdered By: Patricia Newton on 60-13-5403FVN.beta subunit (U) [Moles/Vol]NegativeNormalFT Man SeroURINALYSISOrdered By: Solomon Leal on 92-18-6259Vpvdzpioy Ql (U)Negative (01/31/23 1:57 PM)NormalNegativeFTMC UA Auto SSClarity (U)Clear (01/31/23 1:57 PM)NormalClearFTMC UA Auto SSColor (U)Yellow (01/31/23 1:57 PM)NormalYellowFTMC UA Auto SSEpithelial cells.squamous LM.HPF (Urine sed) [#/Area]3-4 /HPFNormal0-2/HPFFTMC UA Auto SSGlucose Test strip (U) [Mass/Vol]Negative (01/31/23 1:57 PM)NormalNegativeFT UA Auto SSHemoglobin Ql (U)Negative (01/31/23 1:57 PM)NormalNegativeFTMC UA Auto SSKetones (U) [Mass/Vol]Negative (01/31/23 1:57 PM)NormalNegativeFT UA Auto SSLithium.plasma/Solen.RBC (Bld) [Mass ratio]0-3 /HPFNormal0-3/HPFFTMC UA Auto SSNitrite Ql (U)Negative (01/31/23 1:57 PM)NormalNegative[facility] Auto SSpH (U)6.0 *NA* (01/31/23 1:57 PM)Invalid Interpretation Code5.0 - 9.0[facility] UA Auto SSProtein (U) [Mass/Vol]Negative (01/31/23 1:57 PM)NormalNegativeSUM[facility] UA Auto SSSpecific gravity (U) [Rel density] 1.010 *NA* (01/31/23 1:57 PM)Invalid Interpretation Code1.005 - 1.030[facility] UA Auto SSUA Spec DescClean Catch (01/31/23 1:57 PM)NormalSUM[facility] U[facility] Auto SSUrobilinogen Qn (U)0.6060824 {Aspen'U}/dL Normal0.0 - 1.0 EU/dLSUMMIT MEDICAL CENTER [facility] UA Auto SSWBC Auto Ql (U)Negative (01/31/23 1:57 PM)NormalNegativeSUM[facility] U[facility] Auto SSWBC LM.HPF (Urine sed) [#/Area]0-5 /HPFNormal0-5/HPFSUMMIT MEDICAL [facility]ENTER [facility] UA Auto SSBLOOD BANKOrdered By: Teena Quiroz on 90-48-1482CNC/Rh InterpPositiveInvalid Interpretation CodeSUM[facility] BB SubsectionABSC Gel InterpNegative (12/30/22 11:28 AM)NormalSUM[facility] BB SubsectionCHEMISTRYOrdered By: SYSTEM SYSTEM on 38-16-3353Ihyqk gap [Moles/Vol]12 mmol/LNormal6 - 16 mEq/LFTMC RemisolCalcium [Mass/Vol]8.6 mg/dLLow8.9 - 11.1 mg/dLFTMC RemisolChloride [Moles/Vol]103 mmol/L Vuhaos691 - 111 mmol/LFTMC RemisolCO2 [Moles/Vol]26 mmol/EMcqunc13 - 31 mmol/L [facility] RemisolCreatinine [Mass/Vol]0.9 mg/dLNormal0.5 - 1.3 mg/dLFTMC Remisol GFR/1.73 sq M.predicted among blacks MDRD (S/P/Bld) [Vol rate/Area]mL/min/1.73 a8Paurif>=59mL/min/1.73 m2FT Chem SGFR/1.73 sq M.predicted among non-blacks MDRD (S/P/Bld) [Vol rate/Area]mL/min/1.73 q1Irxgzm>=59mL/min/1.73 m2FT Chem S Glucose [Mass/Vol]105 mg/zZQqaiyi34 - 199 mg/dLFTMC RemisolPotassium [Moles/Vol] 3.8 mmol/LNormal3.5 - 5.3 mmol/LFTMC RemisolSodium [Moles/Vol]137 mmol/LNormal 135 - 145 mmol/LFTMC RemisolUrea nitrogen [Mass/Vol]17 mg/dLNormal5 - 21 mg/dL [facility] RemisolUrea nitrogen/Creatinine [Mass ratio]19 mg/huJgnwbm25 - 20FT[facility] RemisolCOAGULATIONOrdered By: Courtney Tang on 38-25-1284eDRY Coag (PPP) [Time]31.5 wBrazou37.1 - 36.5 second(s)[facility] Auto CoagINR Coag (PPP) [Relative time]1.0 {INR}Invalid Interpretation CodeFTMC Auto CoagPT Coag (PPP) [Time]11.7 sNormal 9.4 - 12.5 second(s)[facility] Auto CoagHEMATOLOGYOrdered By: SYSTEM SYSTEM on 35-69-4454Pexmxtjnu/100 WBC (Bld)1.2 %Normal0.0 - 2.0 %[facility] HemeAutoSS Basophils/Leukocytes Auto (Bld) [Pure # fraction]0.1 E9/LNormal0.0 - 0.2 E9/L [facility] HemeAutoSSEosinophils/100 WBC (Bld)4.1 %Normal0.0 - 8.0 %[facility] HemeAutoSS Eosinophils/Leukocytes Auto (Bld) [Pure # fraction]0.2 E9/LNormal0.0 - 0.5 E9/L [facility] HemeAutoSSLymphocytes/100 WBC (Bld)40.5 %Snrcrh28.0 - 50.0 %[facility] HemeAutoSS Lymphocytes/Leukocytes Auto (Bld) [Pure # fraction]2.3 E9/LNormal1.0 - 4.0 E9/L [facility] HemeAutoSSMonocytes/100 WBC (Bld)7.6 %Normal4.0 - 14.0 %[facility] HemeAutoSS Monocytes/Leukocytes Auto (Bld) [Pure # fraction]0.4 E9/LNormal0.2 - 1.0 E9/L [facility] HemeAutoSSNeutrophils/100 WBC (Bld)46.6 %Uictvg24.0 - 75.0 %[facility] HemeAutoSS Neutrophils/Leukocytes Auto (Bld) [Pure # fraction]2.6 E9/LNormal2.0 - 7.5 E9/L [facility] HemeAutoSSHEMATOLOGYOrdered By: Courtney Case on 38-45-5817Ktfiqxkmcfa distribution width (RBC) [Ratio]14.1 %Zddcir76.9 - 14.2 %[facility] HemeAutoSS Hematocrit (Bld) [Volume fraction]31.5 %Low34.0 - 46.0 %[facility] HemeAutoSS Hemoglobin (Bld) [Mass/Vol]10.0 g/dLLow12.0 - 16.0 gm/dLFTMC HemeAutoSSMCH (RBC) [Entitic mass]25.3 pgLow27.0 - 34.0 pgFTMC HemeAutoSSMCHC (RBC) [Mass/Vol]31.8 g/yMQqjzof46.4 - 36.0 gm/dLFTMC HemeAutoSSMCV (RBC) [Entitic vol]79.6 fLLow80.0 - 100.0 fLFTMC HemeAutoSSPlatelet mean volume (Bld) [Entitic vol]7.7 fLNormal6.4 - 10.8 fLFTMC HemeAutoSSPlatelets (Bld) [#/Vol]264.0 E9/YCnunsd770.0 - 500.0 E9/LFTMC HemeAutoSSRBC (Bld) [#/Vol]4.0 E12/LLow4.3 - 5.9 E12/LFTMC HemeAutoSS WBC corrected for nucl RBC Auto (Bld) [#/Vol]5.7 E9/LNormal4.0 - 11.0 E9/LFTMC HemeAutoSSURINALYSISOrdered By: Courtney Case on 61-49-5051Pwpmjkhg LM Ql (Urine sed)Trace /HPFNormalTrace/HPFFTMC UA Auto SSBilirubin Ql (U)Negative (12/30/22 8:53 AM)NormalNegativeSUM[facility] UA Auto SSClarity (U)Clear (12/30/22 8:53 AM)NormalClearFEASTERN [facility] U[facility] Auto SSColor (U)Yellow (12/30/22 8:53 AM)NormalYellowSUMMIT MEDICAL [facility]ENTER [facility] UA Auto SSEpithelial cells.squamous LM.HPF (Urine sed) [#/Area]0-2 /HPFNormal0-2/HPFSUMMIT MEDICAL [facility]ENTER [facility] UA Auto SSGlucose Test strip (U) [Mass/Vol]Negative (12/30/22 8:53 AM)NormalNegativeSUM[facility] UA Auto SSHemoglobin Ql (U)2+ *ABN* (12/30/22 8:53 AM)Invalid Interpretation CodeNegativeSUM[facility] UA Auto SSKetones (U) [Mass/Vol]Negative (12/30/22 8:53 AM)NormalNegativeSUM[facility] UA Auto SSLithium.plasma/Solen.RBC (Bld) [Mass ratio]4-20 /HPFNormal0-3/HPFSUMMIT [facility]ICAL [facility]ENTER [facility] UA Auto SSNitrite Ql (U)Negative (12/30/22 8:53 AM)NormalNegativeSUM[facility] UA Auto SSpH (U)6.0 *NA* (12/30/22 8:53 AM)Invalid Interpretation Code5.0 - 9.0[facility] UA Auto SSProtein (U) [Mass/Vol]Negative (12/30/22 8:53 AM)NormalNegativeSUM[facility] UA Auto SSSpecific gravity (U) [Rel density] 1.025 *NA* (12/30/22 8:53 AM)Invalid Interpretation Code1.005 - 1.030[facility] UA Auto SSUA Spec DescClean Catch (12/30/22 8:53 AM)NormalSUMMIT [facility]ICAL [facility] UA Auto SSUrobilinogen Qn (U)0.0784470 {Aspen'U}/dL Normal0.0 - 1.0 EU/dLSUMMIT MEDICAL CENTER [facility] UA Auto SSWBC Auto Ql (U)Negative (12/30/22 8:53 AM)NormalNegativeSUM[facility] UA Auto SSWBC LM.HPF (Urine sed) [#/Area]0-5 /HPFNormal0-5/HPFSUMMIT [facility]ICAL [facility] UA Auto SSOffice Visiton [id number]-up [id number] Juhi Cope 1995 F Date Provider Department Center 12/05/2022 [id number], G[facility] None Chart Close Cosign Required by: Opal Ross MD[VARUND] No family history on file Level of Service:99917 [place] OFFICE/OUTPATIENT ESTABLISHED LOW MDM 20-29 MIN (GE,GC) Reason for Visit and Comments: Blood Pressure Check [299][facility] SHSProgress Noteon [id number] Note Attestation signed by Opal Ross MD at 12/05/2022 3:19 PM [facility]: This patient was seen in the [...] about 4 weeks (around 01/02/2023) for Visit .[facility] SHSProgress NoteVital signs BP 127/87 Weight 149.2lb Pulse 106 Temp 96.7NoNorth [facility] SHSProgress Noteon 42-55-3999Zehgfrvn Note Late entry due to patient care. Resident Lacy notified of B.P 138/96 heart rate 119 around 1236 see flowsheet. Also notified checked in 1 hour via orders and B.P 143/87 pulse 111. Clarified if should check in 1 hour according to orders. . Also notified patient has discharge order in. Resident Lacy states No on rechecking. Ok to discharge. Will make patient aware.[facility] SHSProgress NotePOSTPARTUM VAGINAL DELIVERY POST [...] Name: DO Vanessa Zambrano DO 12/02/2022, 5:09 [facility]42on 39-93-74511795.5mm flanges given to patient. Encouraged her to call for observation of pump session and smaller flanges. Martha in NICU to assist with personal pump.[facility] SystemCARECOORDon 75-10-6122URZELAPZY89 year old admitted for induction of labor [...] to home. Denies any concerns at this time.[facility] SHSProgress Noteon 29-65-9333Rntccmgx Note NOTE - VAGINAL DELIVERY POST DAY [...] with more than 50% of the total zquw-kw-eivj time of the visit in counseling/coordination of care. , 9:22 [facility] ZQI22ns 45-30-649826Lqtyr given to patient and educated how to use and to bring to infant [facility] QYB88Hhzhte pump use indicated for this pt. Due to: infant in [facility] Hospital breast pump, supplies kit, swabs [...] Told patient to check with [facility] for smaller flange sizesA.[facility]. 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 Bowden; Dr. Kramer Infant Information: Information for the patient's : Francie Cope [[id number]] Information for the patient's : Francie Cope [[id number]] Description: normal Meconium Noted: No Anesthesia: epidural [...] 11/30/2022, 4:[facility] SHSProgress Noteon 17-36-8601Ylifkjsf NoteFoley catheter inserted by Andi Bacon RN, catheter drained and emptied for 900cc. Catheter secured to leg.[facility] SHSProgress NotePatient up to bathroom [...] be monitored and followed by the diet printer repair technician. Suad Samuels, DTA.[facility] SHSProgress NotePatient unable to void, last straight cathed at 0400. Bladder scan obtained for >928 ml, fundus +2 and shifted to right. Patient straight cathed on attempt x2 by Andi Bacon RN for 950cc. Will continue to monitor.[facility] SHSCAREPLNon 90-14-3655LNIFHMFUls patient will continue to make cervical change. Clotilde Mg, RNNoNorth Dakota State Hospital SHSLaboratory - Hematology and Cell countsOrdered By: Lucrecia Cervantes on 72-43-6458Nrjwwqhkb (Bld) [#/Vol]386 10*3/uL140 - 440 10*3/uLSulakehealth beachwood medical center HealthPlatelets (Bld) [#/Vol]Ordered By: Lucrecia Cervantes on 68-40-0496Qqqcjxeyjrsaso and review of laboratory resultsNormal [facility]. agalactiae DNA TENA+probe Ql (Unsp spec)on 11-29-2022 Group B Strep ScreenNot detectedNot [facility] HealthInterpretation and review of laboratory resultsNoJ.W. Ruby Memorial HospitalMethodology: real-time PCRSPella Regional Health CenterABO and Rh group Confirm Nom (Bld)on [id number] group Nom (Bld)OSumma HealthD Ag Ql (RBC)PositiveSumSelect Medical Specialty [facility] HealthBlood type and Crossmatch panel (Bld)on [id number] group Nom (Bld)OSumma HealthBlood group antibody screen GEL QlNegativeSumma HealthD Ag Ql (RBC)PositiveSumfl Healthmma HealthCBC panel Auto (Bld)Ordered By: Lauren Ayers on 80-66-9945Bmlbpnefbyu distribution width (RBC) [Ratio]13.3 %11.5 - 14.5 %[facility] HealthHematocrit (Bld) [Volume fraction]33.8 %Low35.0 - 47.0 %[facility] HealthHemoglobin (Bld) [Mass/Vol] 11.2 g/dLLow11.7 - 16.0 g/dLSumma HealthInterpretation and review of laboratory resultsAbnormalSDiley Ridge Medical CenterH (RBC) [Entitic mass]28.0 pg26.0 - 34.0 pgSDiley Ridge Medical CenterHC (RBC) [Mass/Vol]33.1 %32.0 - 36.0 %[facility] Campusa HealthMCV (RBC) [Entitic vol]84.4 fL80.0 - 98.0 fLSumma HealthPlatelet mean volume (Bld) [Entitic vol]8.3 fL7.4 - 12.4 fLSumma HealthPlatelets (Bld) [#/Vol]319 10*3/uL140 - 440 10*3/uL [facility] HealthRBC (Bld) [#/Vol]4.00 10*6/uL3.8 - 5.20 10*6/uLSumma HealthWBC (Bld) [#/Vol]18.9 10*3/uLHigh3.6 - 10.7 10*3/uLSumma HealthMercy Health St[facility] HealthComprehensive metabolic 1998 panelon 98-14-9434Perkywk [Mass/Vol]3.9 g/dL3.5 - 5.0 g/dLSumma HealthALP [Catalytic [...] sq M.predicted MDRD (S/P/Bld) [Vol rate/Area]- [facility] HospitalComment on above: Calculation based on the Chronic Kidney Disease Epidemiology Collaboration (CKD- EPI) equation refitwithout adjustment for raceGlucose [Mass/Vol]158 mg/bVEary11 - 100 mg/dLSumma HealthInterpretation and review of laboratory resultsAbnormal [facility] HealthPotassium [Moles/Vol]4.1 mmol/L3.5 - 5.1 mmol/LSumma HealthProtein [Mass/Vol]7.5 g/dL6.3 - 8.2 g/dLSumma HealthSodium [Moles/Vol]133 mmol/XOuz000 - 145 mmol/LSumma HealthUrea nitrogen [Mass/Vol]5 mg/dLLow7 - 17 mg/dLSumma HealthSumma HealthLaboratory - Hematology and Cell countsOrdered By: Shruthi Fontana on 66-27-2278Ijxmqzgkh (Bld) [#/Vol]335 10*3/uL140 - 440 10*3/uLSumma HealthPlatelets (Bld) [#/Vol]Ordered By: Shruthi Fontana on 11-28-2022 Interpretation and review of laboratory resultsNormPremier Health Health CHEMISTRYOrdered By: Leaky on 28-37-2611Turu T4 index Calc [Mass/Vol] 5.98 ng/dLNormal5.90 - [...] Code0.1 - 0.9 mg/dL FT RemisolChloride [Moles/Vol]102 mmol/OOumcgp855 - 111 mmol/LFTMC RemisolCO2 [Moles/Vol]18 mmol/LLow21 - 31 mmol/LFTMC RemisolCreatinine [Mass/Vol]0.6 mg/dL Normal0.5 - 1.3 mg/dLFTMC RemisolGFR/1.73 sq M.predicted among blacks MDRD (S/P/Bld) [Vol rate/Area]mL/min/1.73 z9Ygkdzd>=59mL/min/1.73 m2[facility] Chem S GFR/1.73 sq M.predicted among non-blacks MDRD (S/P/Bld) [Vol rate/Area] mL/min/1.73 a2Gigknr>=59mL/min/1.73 m2[facility] Chem SGlobulin (S) [Mass/Vol]4.0 g/dL Normal1.4 - 4.0 gm/dLSUMMIT [facility]ICAL [facility] RemisolPotassium [Moles/Vol]3.7 mmol/LNormal3.5 - 5.3 mmol/LFTMC RemisolProtein [Mass/Vol]7.1 g/dLNormal6.0 - 7.8 gm/dLSUMMIT [facility] Remisol Sodium [Moles/Vol]132 mmol/GFvl103 - 145 mmol/LFTMC RemisolUrate [Mass/Vol]4.9 mg/dLNormal2.2 - 7.4 mg/dLSUMMIT [facility] RemisolUrea nitrogen [Mass/Vol]7 mg/dLNormal5 - 21 mg/dLSUMMIT MEDICAL [facility] RemisolCOAGULATIONOrdered By: Amairani Jenkins on 70-41-6728fFVG Coag (PPP) [Time]25.3 xXsslqw93.1 - 36.5 second(s)[facility] Auto Coag Fibrin+Fibrinogen fragments (S) [Mass/Vol]>10 and <40 *ABN* (11/27/22 3:14 PM)Invalid Interpretation Code<10[facility] Man SeroFibrinogen Coag (PPP) [Mass/Vol]539 mg/eBDtjv863 - 393 mg/dLSUMMIT MEDICAL CENTER [facility] Auto CoagINR Coag (PPP) [Relative time]0.9 {INR}Invalid Interpretation CodeSUM[facility]ICAL [facility] Auto CoagPT Coag (PPP) [Time]10.1 sNormal9.4 - 12.5 second(s)[facility] Auto CoagHEMATOLOGYOrdered By: Raquel Arteaga on 77-63-7710Rkozqsmesvn distribution width (RBC) [Ratio]12.9 %Yszxja02.9 - 14.2 % [facility] HemeAutoSSHematocrit (Bld) [Volume fraction]34.2 %Uouvso38.0 - 46.0 %[facility] HemeAutoSSHemoglobin (Bld) [Mass/Vol]11.0 g/dLLow12.0 - 16.0 gm/dLSUMMIT [facility] HemeAutoSSMCH (RBC) [Entitic mass]27.3 ryBoyhty81.0 - 34.0 pgFTMC HemeAutoSSMCHC (RBC) [Mass/Vol]32.3 g/gHLgadzj13.4 - 36.0 gm/dLFT HemeAutoSSMCV (RBC) [Entitic vol]84.6 kONrmlcw05.0 - 100.0 fLFT HemeAutoSSPlatelet mean volume (Bld) [Entitic vol]8.2 fLNormal6.4 - 10.8 fLFT HemeAutoSSPlatelets (Bld) [#/Vol]273.0 E9/BRbihoz156.0 - 500.0 E9/LFC HemeAutoSSRBC (Bld) [#/Vol]4.0 E12/LLow4.3 - 5.9 E12/LFEASTERN OKLA[facility] HemeAutoSSWBC corrected for nucl RBC Auto (Bld) [#/Vol]15.7 E9/LHigh4.0 - 11.0 E9/LFC HemeAutoSSComment on above:Result Comment: Slide reviewed by ts Unable to obtain accurate platelet count due to platelet clumping. Platelet count estimate appears normal on slide..URINALYSISOrdered By: Amairani Jenkins on 56-97-3799Ekpndhsnk Ql (U)Negative (11/27/22 1:55 PM)NormalNegativeSUM[facility] UA Auto SSClarity (U)Clear (11/27/22 1:55 PM)NormalClearFEASTERN [facility] UA Auto SSColor (U)Yellow (11/27/22 1:55 PM)NormalYellowFT UA Auto SSEpithelial cells.squamous LM.HPF (Urine sed) [#/Area]3-4 /HPFNormal0-2/HPFFTMC UA Auto SSGlucose Test strip (U) [Mass/Vol]Negative (11/27/22 1:55 PM)NormalNegativeSUM[facility] UA Auto SSHemoglobin Ql (U)1+ *ABN* (11/27/22 1:55 PM)Invalid Interpretation CodeNegativeFT UA Auto SSKetones (U) [Mass/Vol]Negative (11/27/22 1:55 PM)NormalNegativeSUM[facility] UA Auto SSLithium.plasma/Solen.RBC (Bld) [Mass ratio]4-20 /HPFNormal0-3/HPFSUMMIT [facility]ENTER [facility] UA Auto SSNitrite Ql (U)Negative (11/27/22 1:55 PM)NormalNegativeSUM[facility] U[facility] Auto SSpH (U)6.5 *NA* (11/27/22 1:55 PM)Invalid Interpretation Code5.0 - 9.0[facility] UA Auto SSProtein (U) [Mass/Vol]Negative (11/27/22 1:55 PM)NormalNegativeSUM[facility] UA Auto SSSpecific gravity (U) [Rel density] 1.010 *NA* (11/27/22 1:55 PM)Invalid Interpretation Code1.005 - 1.030[facility] UA Auto SSUA Spec DescClean Catch (11/27/22 1:55 PM)NormalSUM[facility]ICAL [facility] UA Auto SSUrobilinogen Qn (U)0.8054777 {Aspen'U}/dL Normal0.0 - 1.0 EU/dLSUMMIT MEDICAL CENTER [facility] UA Auto SSWBC Auto Ql (U)Negative (11/27/22 1:55 PM)NormalNegativeSUM[facility] UA Auto SSWBC LM.HPF (Urine sed) [#/Area]0-5 /HPFNormal0-5/HPFSUMMIT MEDICAL [facility]ENTER [facility] UA Auto SSCHEMISTRYOrdered By: SYSTEM SYSTEM on 07-14-2022 Albumin [Mass/Vol]3.6 g/dLNormal3.3 - 5.0 gm/dLSUMMIT [facility]ICAL [facility] RemisolAlbumin/Globulin [Mass ratio]1.1 {ratio}Normal1.1 - 2.2FTMC RemisolALP [Catalytic activity/Vol]41 [iU]/bYzqkmk09 - 98 Int._Unit/LFTMC RemisolALT No additional P-5'-P [Catalytic activity/Vol]19 [iU]/dNormal6 - 46 Int._Unit/LFTMC RemisolAnion gap [Moles/Vol] 11 mmol/LNormal6 - 16 mEq/LFTMC RemisolAST [Catalytic activity/Vol]21 [iU]/d Normal5 - 43 Int._Unit/LFTMC RemisolBilirubin [Mass/Vol]0.7 mg/dLNormal0.0 - 1.1 mg/dLSUMMIT [facility] RemisolBilirubin.direct [Mass/Vol]0.1 mg/dLNormal0.1 - 0.4 mg/dLFTMC RemisolBilirubin.indirect [Mass or moles/Vol]0.6 mg/dLNormal0.1 - 0.9 mg/dLFTMC RemisolCalcium [Mass/Vol]8.9 mg/dLNormal8.9 - 11.1 mg/dLFTMC RemisolChloride [Moles/Vol]107 mmol/THoecaa425 - 111 mmol/LFTMC RemisolCO2 [Moles/Vol]22 mmol/L Dmoozr81 - 31 mmol/LFTMC RemisolCreatinine [Mass/Vol]0.6 mg/dLNormal0.5 - 1.3 mg/dLFTMC RemisolGFR/1.73 sq M.predicted among blacks MDRD (S/P/Bld) [Vol rate/Area]mL/min/1.73 z8Ekegkg>=59mL/min/1.73 m2FT[facility] Chem SGFR/1.73 sq M.predicted among non-blacks MDRD (S/P/Bld) [Vol rate/Area]mL/min/1.73 q1Kgpygt >=59mL/min/1.73 m2FT[facility] Chem SGlobulin (S) [Mass/Vol]3.3 g/dLNormal1.4 - 4.0 gm/dLFTMC RemisolGlucose [Mass/Vol]99 mg/wAVdgmcg37 - 199 mg/dLFTMC Remisol Potassium [Moles/Vol]3.5 mmol/LNormal3.5 - 5.3 mmol/LFTMC RemisolProtein [Mass/Vol]6.9 g/dLNormal6.0 - 7.8 gm/dLFT[facility] RemisolSodium [Moles/Vol]136 mmol/L Xipuoo212 - 145 mmol/LFT[facility] RemisolUrea nitrogen [Mass/Vol]8 mg/dLNormal5 - 21 mg/dLFT[facility] RemisolUrea nitrogen/Creatinine [Mass ratio]13 mg/xfYpnpza15 - 20[facility] RemisolHEMATOLOGYOrdered By: SYSTEM SYSTEM on [id number]/100 WBC (Bld) 0.3 %Normal0.0 - 2.0 %[facility] [...] 7.5 E9/LFTMC HemeAutoSSHEMATOLOGYOrdered By: Teena Quiroz on [id number] distribution width (RBC) [Ratio]12.9 %Normal 10.9 - 14.2 %[facility] HemeAutoSSHematocrit (Bld) [Volume fraction]33.6 %Low34.0 - 46.0 %[facility] HemeAutoSSHemoglobin (Bld) [Mass/Vol]11.5 g/dLLow12.0 - 16.0 gm/dL [facility] HemeAutoSSMCH (RBC) [Entitic mass]28.5 siPjjxfl55.0 - 34.0 pgFTMC HemeAutoSSMCHC (RBC) [Mass/Vol]34.1 g/kUTuchhz36.4 - 36.0 gm/dLFTMC HemeAutoSS MCV (RBC) [Entitic vol]83.5 tFAicxdi55.0 - 100.0 fLFTMC HemeAutoSSPlatelet mean volume (Bld) [Entitic vol]8.1 fLNormal6.4 - 10.8 fLSUM[facility] HemeAutoSSPlatelets (Bld) [#/Vol]271.0 E9/RSeqmza335.0 - 500.0 E9/[facility] HemeAutoSSRBC (Bld) [#/Vol] 4.0 E12/LLow4.3 - 5.9 E12/[facility] HemeAutoSSWBC corrected for nucl RBC Auto (Bld) [#/Vol]13.9 E9/LHigh4.0 - 11.0 E9/[facility] HemeAutoSSURINALYSISOrdered By: Deirdre Gilliam on [id number] LM Ql (Urine sed)Trace /HPFNormalTrace/HPFSUMMIT [facility] UA Auto SSBilirubin Ql (U)Negative (07/14/22 5:00 AM)NormalNegativeSUMMIT [facility]ICAL [facility] [place] U[facility] Auto SSClarity (U)Clear (07/14/22 5:00 AM)NormalClearFEASTERN [facility] Auto SSColor (U)Yellow (07/14/22 5:00 AM)NormalYellowSUMMIT MEDICAL [facility] [place] U[facility] Auto SSEpithelial cells.squamous LM.HPF (Urine sed) [#/Area]3-4 /HPFNormal0-2/HPFSUMMIT [facility] [place] U[facility] Auto SSGlucose Test strip (U) [Mass/Vol]Negative (07/14/22 5:00 AM)NormalNegativeSUMMIT [facility] [place] U[facility] Auto SSHemoglobin Ql (U)Trace *ABN* (07/14/22 5:00 AM)Invalid Interpretation CodeNegativeSUMMIT MEDICAL [facility] [place] U[facility] Auto SSKetones (U) [Mass/Vol]Negative (07/14/22 5:00 AM)NormalNegativeSUMMIT [facility] [place] U[facility] Auto SSLithium.plasma/Solen.RBC (Bld) [Mass ratio]0-3 /HPFNormal0-3/HPFSUM[facility] [place] U[facility] Auto SSMucus Ql (Urine sed)Trace (07/14/22 5:00 AM)NormalSUMMIT [facility]ICAL [facility] [place] [facility] Auto SSNitrite Ql (U)Negative (07/14/22 5:00 AM)NormalNegativeSUMMIT [facility] [place] [facility] Auto SSpH (U)6.0 *NA* (07/14/22 5:00 AM)Invalid Interpretation Code5.0 - 9.0[facility] Auto SSProtein (U) [Mass/Vol]Negative (07/14/22 5:00 AM)NormalNegativeSUMMIT [facility] [place] [facility] Auto SSSpecific gravity (U) [Rel density] 1.020 *NA* (07/14/22 5:00 AM)Invalid Interpretation Code1.005 - 1.030[facility] [place] U[facility] Auto SSUA Spec DescClean Catch (07/14/22 5:00 AM)NormalSUMMIT MEDICAL [facility] [place] [facility] Auto SSUrobilinogen Qn (U)0.5764924 {Aspen'U}/dLNormal0.0 - 1.0 EU/dLSUMMIT MEDICAL [facility] [place] UA Auto SSWBC Auto Ql (U)Negative (07/14/22 5:00 AM)NormalNegativeSUMMIT [facility] UA Auto SSWBC LM.HPF (Urine sed) [#/Area]0-5 /HPFNormal0-5/HPFSUMMIT [facility]ICAL [facility] Auto SSCHEMISTRYOrdered By: SYSTEM SYSTEM on 27-08-4633Savuhdk [Mass/Vol]4.4 g/dLNormal3.3 - 5.0 gm/dLFT[facility] Remisol Albumin/Globulin [Mass ratio]1.1 {ratio}Normal1.1 - 2.2[facility] RemisolALP [Catalytic activity/Vol]64 [iU]/gNfnfty67 - 98 Int._Unit/LFTMC RemisolALT No additional P-5'-P [Catalytic activity/Vol]107 [iU]/dHigh6 - 46 Int._Unit/LFTMC RemisolAST [Catalytic activity/Vol]63 [iU]/dHigh5 - 43 Int._Unit/LFTMC Remisol Bilirubin [Mass/Vol]1.5 mg/dLHigh0.0 - 1.1 mg/dLFTMC RemisolBilirubin.direct [Mass/Vol]0.2 mg/dLNormal0.1 - 0.4 mg/dLFTMC RemisolBilirubin.indirect [Mass or moles/Vol]1.3 mg/dLHigh0.1 - 0.9 mg/dLFTMC RemisolCholesterol [Mass/Vol]193 mg/pREkpwmh505 - 200 mg/dLFTMC RemisolCholesterol in HDL [Mass/Vol]64 mg/dL Invalid Interpretation CodeFTMC RemisolCholesterol in LDL [Mass/Vol]116 mg/dL Normal<=129mg/dLFTMC RemisolCholesterol in VLDL [Mass/Vol]13 mg/dLNormal7 - 40 mg/dLFTMC RemisolGlobulin (S) [Mass/Vol]3.9 g/dLNormal1.4 - 4.0 gm/dLFTMC RemisolProtein [Mass/Vol]8.3 g/dLHigh6.0 - 7.8 gm/dLFTMC RemisolTriglyceride [Mass/Vol]67 mg/dLNormal<=149mg/dLFTMC RemisolCOAGULATIONOrdered By: Courtney Case on 33-57-4428RVA Coag (PPP) [Relative time]1.0 {INR}Invalid Interpretation Code [facility] Auto CoagPT Coag (PPP) [Time]12.4 zSpccvk14.2 - 12.9 second(s)[facility] Auto CoagHEMATOLOGYOrdered By: SYSTEM SYSTEM on 31-68-1664Zutahamci/100 WBC (Bld)0.7 %Normal0.0 - 2.0 %[facility] HemeAutoSSBasophils/Leukocytes Auto (Bld) [Pure # fraction]0.0 E9/LNormal0.0 - 0.2 E9/LFTMC HemeAutoSSEosinophils/100 WBC (Bld)3.2 %Normal0.0 - 8.0 %[facility] HemeAutoSSEosinophils/Leukocytes Auto (Bld) [Pure # fraction]0.2 E9/LNormal0.0 - 0.5 E9/LFTMC HemeAutoSSLymphocytes/100 WBC (Bld) 31.9 %Eyuoay85.0 - 50.0 %[facility] HemeAutoSSLymphocytes/Leukocytes Auto (Bld) [Pure # fraction]1.9 E9/LNormal1.0 - 4.0 E9/LFTMC HemeAutoSSMonocytes/100 WBC (Bld)9.1 %Normal4.0 - 14.0 %[facility] HemeAutoSSMonocytes/Leukocytes Auto (Bld) [Pure # fraction]0.5 E9/LNormal0.2 - 1.0 E9/LFTMC HemeAutoSSNeutrophils/100 WBC (Bld) 55.1 %Daffce18.0 - 75.0 %[facility] HemeAutoSSNeutrophils/Leukocytes Auto (Bld) [Pure # fraction]3.3 E9/LNormal2.0 - 7.5 E9/LFTMC HemeAutoSSHEMATOLOGYOrdered By: Chivo Ward on 94-74-2149Gdkeanlgzou distribution width (RBC) [Ratio]12.9 % Petauw47.9 - 14.2 %[facility] HemeAutoSSHematocrit (Bld) [Volume fraction]40.1 %Normal 34.0 - 46.0 %[facility] HemeAutoSSHemoglobin (Bld) [Mass/Vol]13.2 g/rCPxnmkn66.0 - 16.0 gm/dLFTMC HemeAutoSSMCH (RBC) [Entitic mass]27.7 alTtwsda73.0 - 34.0 pgFTMC HemeAutoSSMCHC (RBC) [Mass/Vol]32.8 g/dYRcfzua50.4 - 36.0 gm/dLFTMC HemeAutoSS MCV (RBC) [Entitic vol]84.3 uUEeswce15.0 - 100.0 fLFTMC HemeAutoSSPlatelet mean volume (Bld) [Entitic vol]8.5 fLNormal6.4 - 10.8 fLFTMC HemeAutoSSPlatelets (Bld) [#/Vol]299.0 E9/FKdhssb208.0 - 500.0 E9/LFTMC HemeAutoSSRBC (Bld) [#/Vol] 4.8 E12/LNormal4.3 - 5.9 E12/LFTMC HemeAutoSSWBC corrected for nucl RBC Auto (Bld) [#/Vol]5.9 E9/LNormal4.0 - 11.0 E9/LFC HemeAutoSSLMPon 52-59-7008Tinq risk assessmenta) No falls within the last nnwoVG-GPBPM-Jzcvsa 320 Work Phone: Last menstrual period start akwzxnykkwTO-NFECO-Hokwlq 320 Work Phone: Tobacco use status CPHSb) JaFW-ENNKC-Subyly 320 Work Phone: 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 endometriosis: discussed options continue norethindrone rx'd orilissa 200 mg bid rtc in 3 months Chief Complaint patient here to discuss pain related to endometriosis, declined sugarcane planter. 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 History of Present Mqpykor44 yo presents as a follow up for [...] again engaged x 1 year working at [employer] [place] [employer] Constitutional: no fever, no [...] hours Vitals Vital Signs Recorded: 09Feb2022 11:41AM Hkcwnoln035 Snltbzujl57 Height5 ft 2 in Tcoxed955 lb BMI Seejgvyozt44.51 kg/m2 BSA Calculated1.61 Tobacco Useb) No Fall [...] NormalUH TouchworksXR KNEE LEFT (MIN 4 VIEWS)on 76-33-1141IA KNEE LEFT (MIN 4 VIEWS)EXAM: XR KNEE [...] Joe Lopez MD 09/29/21 Final resultNormalMercy Marcin Steward Health Care SystemOB/SOFTWARE DEVELOPMENT ADVISOR - Office Visiton 66-38-3468JL/SOFTWARE DEVELOPMENT ADVISOR - Office VisitDiagnoses/Problems Assessed Anxiety (300.00) (F41.9) Orders Start: FLUoxetine HCl - 20 MG Oral Capsule; TAKE 1 CAPSULE Daily Provider Impressions 26 yo 1. endometriosis - discussed treatment options rx'd Prozac for mood rx'd norethindrone rtc in 3 months Chief Complaint patient to follow up on medication from last visit in march 2021, declined sugarcane planter. 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 History of Present Ngoycyj22 yo with endometriosis was on norethindrone d/c'd [...] Every 6 hours Vitals Vital Signs Recorded: 31Hrc1916 01:19PM Toekthxo100 Aumpydcyr26 Height5 ft 2 in Taupxb878 lb BMI Carngcbrke89.58 kg/m2 BSA Calculated1.53 Tobacco Useb) No Fall Screeninga) No falls within the last year FPE69Ttz2873 Pain Scale0 Signatures Electronically signed by : Charlene Rodriguez DO; Jun 03 2021 10:55AM EST (Author) NormalUH TouchworksChlamydia sp identified Org specific cx Nom (Genital specimen)Ordered By: Jackelyn Dela Cruz on 29-45-0669Hxxayycz Chlamydia Screen NegativeNegativeSumfl HealthHBV surface Ag IA Qlon 02-31-8518Vgngklly Hepatitis B Surface AgNegativeNegative, None DetectedSumma HealthHIV 1+2 Ab and HIV1 p24 Ag IA.rapid Nom (S/P/Bld)on 55-61-1013DHG-1/HIV-2 AbNegativeSumma HealthNo Panel Informationon 48-59-1643Dqwdvghz Gonorrhea ScreenNegativeNegativeSumma Health External Rubella IGG QuantitationPositiveSumma HealthSumma HealthNo Panel InformationOrdered By: Jackelyn Dela Cruz on 44-34-0271Aqeuy HealthReagin Ab RPR Ql (S)on 13-08-4533Hnyjuuex RPRNon-ReactiveBorderline, Nonreactive, Weakly Reactive, EquivocalSumma HealthOB/SOFTWARE DEVELOPMENT ADVISOR - Office Visiton 61-40-2442FG/SOFTWARE DEVELOPMENT ADVISOR - Office VisitDiagnoses/Problems Assessed Endometriosis (617.9) (N80.9) Never smoker Orders Stop: Norethindrone Acetate 5 MG Oral Tablet Tobacco Use Screening; Status:Complete; Done: 44Xge3648 Provider Impressions 26 yo 1. 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,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 LMP 04/11/21 History of Present Zwrbtxf89 yo with endometriosis bleeding once per month, [...] DO; Apr 20 2021 11:04AM EST (Author) [facility] TouchworksTobacco Screening.on 67-99-0946Feiw risk assessmenta) No falls within the last lveyWZ-ZJZPS-Ffmnkz 320 Work Phone: Lasc menstrual period start pnwu91Wqc7390 JQ-LXRTG-Aumgnm 320 Work Phone: Tobacco Screening.b) MtIW-WOUIE-Qclhaj 320 Work Phone: Radiologyon 50-69-0694HG Kidney - bilateralNormal SY-Uaftbox-Zrnwplcph Work Phone: us RENAL BILATon 42-18-4745VJ RENAL BILATMRN: [id number] Patient Name: JUHI COPE STUDY: US RENAL BILAT; 04/14/2021 1:14 pm INDICATION: Recurrent UTI. COMPARISON: None. ACCESSION NUMBER(S): [id number] ORDERING CLINICIAN: TERI CHAU TECHNIQUE: Multiple images [...] ultrasound. Electronically signed by: GENEVIEVE CAR STUPIN, MDKensington Hospital Office Visit (Urology)on 55-70-1012Zdqurd-up visitDiagnoses/Problems Assessed Recurrent UTI (599.0) (N39.0) Orders Recurrent UTI Start: Nitrofurantoin Monohyd Macro 100 MG Oral Capsule; TAKE 1 CAPSULE Other Please take one capsule after sexual intercourse to prevent UTI Rx By: Teri Chau; Dispense: 30 Days ; #:30 Capsule; Refill: 11;For: Recurrent UTI; ROSY = N; Verified Transmission to [facility] Watch Ultrasound Kidney Bilateral; Status:Hold For - Scheduling; Requested for:20Qob6524; Perform:[facility] Radiology Services Imaging; Due:30Pvq1127; Last Updated By:Isela Terrazas; 04/01/2021 9:16:17 AM;Ordered; [...] UTI; ROSY = N; [facility] [place] [address] Provider Impressions 26 year old female with [...] saw Dr. Booth at [facility] in [place], noting she was only treated with medications and urethral dilation for a supposed stricture.Denies gross hematuria. Patient is a non-smoker. Urine culture from [facility] on 03/04/21 was positive for E. coli, [...] NPV - recurrent UTI History of Present C[age]eyhbe23 year old female with history of endometriosis presents today via telehealth as a new patient for evaluation of recurrent UTIs. She reports getting UTIs at least once per month, noting occasional nocturia. Symptoms include burning, frequency, and back pain. She states that some UTIs are related to sexual intercourse but most are not. Patient reports she saw Dr. Booth at [facility] in [place], noting she was only treated with medications [...] content not included)...NormalUH TouchworksNM GASTRIC EMPTYING SOLIDon 55-97-5385QW GASTRIC EMPTYING SOLID* * *Final Report* * * DATE OF EXAM: Nov 05 2020 12:26PM [facility] 0017 - NM GASTRIC EMPTYING SOLID / [...] 4 HOURS IS CONSISTENT WITH MILD GASTROPARESIS. Manager Work: PSCB Transcribe Date/Time: Nov 05 2020 1:09P Dictated by : SIDDHARTH PEREA MD This examination was interpreted and the report reviewed and electronically signed by: SIDDHARTH PEREA MD on Nov 05 2020 1:24PM EST [id number]_IDCSIACNNBeaumont HospitalANES POSTPROC EVALon 76-23-2576TKDY POSTPROC EVALHNO ID: [id number] Author: Austin Story Service: ? Author Type: [...] October 25, 2020 TIME: 2:52 PM CSN: [id number] HospitalANES PRE-OPon 05-12-0329UJBE PRE-OPHNO ID: [id number] Author: Austin Story Service: ? Author Type: [...] October 25, 2020 TIME: 1:08 PM CSN: [id number] [facility] PATHOLOGYon 10-25-2020 SURGICAL PATHOLOGYSpecimen originated from [facility] Specimen #: [id number] Submitting Physician: MALCOLM CRUZ MD FINAL DIAGNOSIS 1. Small bowel, biopsy (A) - Small bowel mucosa with no pathologic diagnostic abnormality; negative for celiac disease, granulomas and dysplasia. 2. Stomach, biopsy (B) - Gastric oxyntic-type mucosa with no pathologic diagnostic abnormality; see comment. /[facility] 10/26/2020 COMMENT 2. No microorganisms [...] in one cassette. Gross examination performed at [facility], [address] [place] [address] 10/25/2020 7:59:40 PM Date of Report: 10/26/2020 Date of Procedure: 10/25/2020 Date of Receipt: 10/25/2020 Submitted by: MALCOLM CRUZ MD Location: AVEN Diagnostic interpretation performed at [facility], [address] [place] [address]. [place] Number: [id number] Clinic Reference LabComment on above:Performed By: #### S #### See report for performing lab information.SURGICAL PATHOLOGYSpecimen originated from [facility] Specimen #: [id number] Submitting Physician: MALCOLM CRUZ MD FINAL DIAGNOSIS 1. Small bowel, biopsy (A) - Small bowel mucosa with no pathologic diagnostic abnormality; negative for celiac disease, granulomas and dysplasia. 2. Stomach, biopsy (B) - Gastric oxyntic-type mucosa with no pathologic diagnostic abnormality; see comment. /[facility] 10/26/2020 COMMENT 2. No microorganisms [...] in one cassette. Gross examination performed at [facility], [address] [place] [address] EJL 10/25/2020 7:59:40 PM Date of Report: 10/26/2020 Date of Procedure: 10/25/2020 Date of Receipt: 10/25/2020 Submitted by: MALCOLM CRUZ MD Location: AV[facility] Diagnostic interpretation performed at [facility], [address] [place] [address]. [place] Number: [id number] County Hospital/ GROUP TESTon 50-89-8443WKM Herington Municipal HospitalComment on above: Performed By: #### VERAB #### [facility] [address] [place], [place] [address]JP TYPEPositiveOur Lady of the Lake Regional Medical CenterComment on above: Performed By: #### VERAB #### [facility] [address] [place], [place] [address]Niwxg Surgical Pathology Departmenton 62-29-1250Qnbdp Surgical Pathology DepartmentName JUHI COPE Pathologist: ASHLEY HURTADO MD Date of Procedure: 09/01/2020 Date Received: 09/01/2020 Date Reported 09/03/2020 Submitting Physician: CHARLENE RODRIGUEZ D.O. Location: [facility] External # FINAL DIAGNOSIS A. LEFT PELVIC [...] D. Right pelvic sidewall peritoneum are 2 solz-sqb-idk, irregular fragments of tissue measuring 1.3 x [...] in toto in one cassette. SB amisha/09/02/2020 [facility] Department of Pathology [address] [place], [place] [address]EzplomKGCarolinaEast Medical CenterComment on above:Performed By: #### [facility] #### [facility] Surgical Pathology Department [address] [facility] [address]Zlhsnqb and Physical - Surgery > 30 dayson 85-23-5063Dnmhcta and Physical - Surgery > 30 daysHistory [...] T&S: O+, COVID-19: negative OB Hx: None. Store Person Hx: As above. PMHx: endometriosis Surg Hx: diagnostic laparoscopy, appendectomy (2016) Meds: Meloxicam, Comerío-Linyah, Norethindrone acetate Social Hx: No tobacco, no [...] the note. I personally evaluated the patient [id number] Attending Provider Inpatient Certification StatementObservation patient/other outpatient [...] by Charlene Rodriguez ()[facility] Medical CenterHomegoing Instructionson 91-87-4346Beedlxxym InstructionsAdditional Instructions: Handouts Given: Topic 1Anesthesia Homegoing Instructions Topic 2Surgical Site Infection Handout Topic 3New Medication Education Topic 4Suggamedex handout Electronic Signatures: Aminata Gomez (DIALLO) (Signed 01-Sep-2020 16:07) Authored: Additional Instructions Last Updated: 01-Sep-2020 16:07 by Aminata Gomez (DIALLO)[facility] Medical CenterPatient Profile - Preop v2on 66-58-3905Yowutes Profile - Preop w9Zpzviyu: Initial Info: How to be Addressedalexis Spoken Language PreferredEnglish Are you currently using the Personal Electronic Health Record or infoBizz Stated Reason for Admissionseeing if my endometriosis is back Primary Contact Name and Numberlogan [phone] Patient Belongingsclothing locker glasses with bf Medications Brought to Hospitalno General Health: Weight in kg55.6 kilogram(s) Weight in eoz646.5 pound(s) Weight Methodactual (measured) Scale Typestanding Height [...] Arrangementshouse Lives Withparent(s) Resource/Environmental Concernsnone Anticipated Transition [employer] Services Anticipated at Transitionnone Substance: Current or [...] HIGH RISK. Are there any cultural, spiritual, confucianist practices/values/needs that are important for us to [...] 30 days 01-Sep-2020 03:42[facility] Medical CenterPreop Checkliston 18-01-6789Wfxca Checklist Preop Checklist: Preop Checklist: Arrival Wowj44-Nzn-8704 Arrival Time12:30 Procedure Typelaparoscopic endometriosis excision NPO Ujktes75-Kca-0012 00:00 ID Band Onyes Allergy Bandno known [...] by Sierra Kraft (RN)[facility] Medical CenterANTIBODY IDENT.on 04-38-4579JAGODZAJ IDENT.SEE BELOWNormCarolinaEast Medical CenterComment on above:Result Comment: NO CLINICALLY SIGNIFICANT ANTIBODIES IDENTIFIED.Performed By: #### ABID #### [facility] [address] [place], [place] [address]JSYro 78-41-0083Fhjdqizwgns distribution width (RBC) [Ratio] 12.1 %Vduego96.5 - 14.5JFK Medical CenterComment on above:Performed By: #### CBC #### [facility] [address] [place], [place] [address]Yiypdshxst (Bld) [Volume fraction]39.6 %Pgdyuy63.0 - 46.0JFK Medical CenterComment on above:Performed By: #### CBC #### [facility] [address] [place], [place] [address]Cthwjrlswq (Bld) [Mass/Vol]12.6 g/fWRcgvrs12.0 - 16.0JFK Medical CenterComment on above:Performed By: #### CBC #### [address] [id number] (RBC) [Mass/Vol]31.8 g/dLLow32.0 - 36.0JFK Medical CenterComment on above:Performed By: #### CBC #### [address] [id number] (RBC) [Entitic vol]90 sTFieknc58 - 100JFK Medical CenterComment on above:Performed By: #### CBC #### [address] [id number] (Bld) [#/Vol]333 10*3/sTXyroqp090 - 450JFK Medical CenterComment on above:Performed By: #### CBC #### [address] [address]ZXW6.42 x10E12/LNormal4.00 - 5.20[facility] Comment on above:Performed By: #### CBC #### [address] [id number] (Bld) [#/Vol]5.6 10*3/uLNormal4.4 - 11.3JFK Medical CenterComment on above:Performed By: #### CBC #### [address] [id number] 2019, SCREEN ASYMPTOMATICon 99-57-8621SQQR-CoV-2 (COVID-19) RNA TENA+probe Ql (Unsp spec)Not detectedNormalNot DetectedJFK Medical CenterComment on above:Result Comment: This assay [...] patient management decisions. Fact sheet for providers: https://www.fda.gov/media/434917/download Fact sheet for patients: https://www.fda.gov/media/782848/download This test has received FDA Emergency Use Authorization (EUA) and has been verified by [facility] ([facility]). This test is only authorized for the duration of time that circumstances exist to justify the authorization of the emergency use of in vitro diagnostic tests for the detection of SARS-CoV-2 virus and/or diagnosis of COVID-19 infection under section 564(b)(1) of the Act, 21 U.S.C. 360bbb-3(b)(1), unless the authorization is terminated or revoked sooner. [facility] is certified under CLIA-88 as qualified to perform high complexity testing. Testing is performed in the [facility] laboratories located at [address] [place] [address].Performed By: #### COVSC #### [place], [place] [address]Lab Specimen SourceNasal, NasopharyngealNoAdventHealth PorterComment on above:Performed By: #### COVSC #### [place], [place] [address]TYPE + SCREENon 68-16-9352XAJ [facility] EL[facility] MEDICAL CENTERONoNovant Health Brunswick Medical CenterComment on above:Performed By: #### T+S #### [facility] [address] [place], [place] [address]GD TYPEPositiveOur Lady of the Lake Regional Medical CenterComment on above: Performed By: #### T+S #### [facility] [address] [place], [place] [address]KJU TYPECanceledMadison HospitalComment on above:Order Comment: TEST TYPE + SCREEN WAS CANCELLED, 08/30/2020 13:37 JOP. Performed By: #### T+S #### [facility] [address] [place], [place] [address]NH TYPECanceledNormSt. Vincent General Hospital DistrictComment on above:Order Comment: TEST TYPE + SCREEN WAS CANCELLED, 08/30/2020 13:37 JOP. Performed By: #### T+S #### [facility] [address] [place], [place] [address]JQZHka 46-77-2843AQZQIvupkzd:Juhi Cope MRN: Height:5' 2 (1.575 m) Weight:120 [...] the following basenames: K,HCT Progress Notes ([facility] REJ AV4): Jaquelin Wesley Ma 10/19/2020 [...] 1 10 oz. Bottle of Magnesium Citrate (Lemon/Alutiiq) ? A test for COVID 19 test [...] toast without seeds (not multigrain); pretzels; waffles, Albanian toast and pancakes; white rice, noodles, pasta, macaroni, peeled cooked potatoes; Special K, Rice Krispies or Ripley Flakes cereals; ripe bananas; melons (except watermelon [...] creamer); clear carbonated beverages such as chi asilinn or lemon-pala soda; Gatorade? or other sports drinks (not [...] make sure you have a responsible adult tractor trailer truck driver to take you home after procedure. Due to having sedation, you may not drive the rest of the day. ? If you need to reschedule, please call [phone] ?Date/Provider Dr Cruz Procedure:colonoscpy Facility:[facility] Prep ordered( if aware):miralax Knowledge of prep instructions:posted to Kanshu Diabetic:no Blood Thinners:no Pacemaker with defibrillator:no left message for patient to return call. Nurse triage please give below message. PLEASE READ PATIENT INSTRUCTIONS BELOW. THANK YOU.[facility] on 25-63-5987LKQFCQHADMA ID: [id number] Author: Leon Perkins (Rt) Fito Blanchard Service: Radiology Author Type: Drafter Directional Survey Type: Progress Notes Filed: 07/29/2020 11:06 AM [...] BY: RT Daya July 29, 2020 11:01 [facility] CenterXR ABD 2V SUPINE W UPR/DECUB/CTLon 93-17-1235JB ABD 2V SUPINE W UPR/DECUB/CTL* * *Final [...] structures are normal. No other significant abnormality. Manager Work: DAVID Transcribe Date/Time: Jul 29 2020 11:19A Dictated by : LALI ORNELAS MD This examination was interpreted and the report reviewed and electronically signed by: LALI ORNELAS MD on Jul 29 2020 11:19AM EST [id number]_[facility] Vital Signs Date TimeVital SignValuePerforming KsqedkcwpFvisbafz37-81-2759 15:04-0500Body mass index (BMI) [Ratio]30.36 kg/g5Cbtiy Kiesha DO Work Phone: [phone] [place], [place] [address]Ukhswmjeji68-92-2141 15:04-0500Body nuzpnh11.3 kg Nathan Kiesha DO Work Phone: [phone] [address]-05-2025 15:04-0500Diastolic blood hvmqnuep95 mm[Hg]Nathan Kiesha DO Work Phone: [phone] [place], [place] [address]Lezzleqznv88-47-1052 15:04-0500Systolic blood ghkeukbc348 mm[Hg]Nathan Kiesha DO Work Phone: [phone] [place], [place] 1283110-22-2025 16:04-0400Body mass index (BMI) [Ratio]29.78 kg/b9Gnbpd Kiesha DO Work Phone: [phone] [place], [place] [address]Flgovxcygy87-59-1254 16:04-0400Body .85 kgCorey Kiesha DO Work Phone: 1(473)[facility] [place], [place] [address]Qgiuqtjkgp83-07-6331 16:04-0400Diastolic blood hawscdvx91 mm[Hg]Nathan Kiesha DO Work Phone: 1(207)[facility] [place], [place] [address]Gngzyivvpf33-17-4790 16:04-0400Systolic blood fkxwrpaw637 mm[Hg]Nathan Kiesha DO Work Phone: [phone] [address]-16-2025 10:34-0400Body mass index (BMI) [Ratio]29.26 kg/g2QurutwomMadhuri Monroy MD Work Phone: p[facility]10-16-2025 10:34-0400Body .58 kgMadhuri Monroy MD Work Phone: [phone] [place], [place] 56[address]10-16-2025 10:34-0400Diastolic blood duqwjnso28 mm[Hg]Madhuri Monroy MD Work Phone: [phone] [place], [place] 9672610-16-2025 10:34-0400Systolic blood mm[Hg]Madhuri Monroy MD Work Phone: [phone] [place], [place] 9672610-10-2025 14:48-0400Body .5 cmMine Denise MD Work Phone: [phone] [place], [place] 9672610-10-2025 14:48-0400Body mass index (BMI) [Ratio]29.04 kg/z8HhfstwMine Denise MD Work Phone: [phone])[address] [place], [place] 9672610-10-2025 14:48-0400Body .03 kgMine Denise MD Work Phone: [phone] [place], [place] 9672610-10-2025 14:48-0400Diastolic blood hmdecgas41 mm[Hg]Mine Denise MD Work Phone: [phone] [place], [place] 9672610-10-2025 14:48-0400Heart rate 104 /minMine Denise MD Work Phone: [phone] [place], [place] 9672610-10-2025 14:48-0400Systolic blood usmhyuls147 mm[Hg]Mine Denise MD Work Phone: [phone] [place], [place] 9672610-09-2025 15:54-0400Body mass index (BMI) [Ratio]29.41 kg/q4SujchleeSteph Keane ARTIFICIAL LEATHER CALENDER OPERATOR Work Phone: [phone] [place], [place] [address]Bwywcrvpqr93-07-0720 15:54-0400Body nyyked28.94 kgSteph Keane ARTIFICIAL LEATHER CALENDER OPERATOR Work Phone: [phone] CenterMmyvauktph40-25-2263 15:54-0400Diastolic blood adwpskvb60 mm[Hg]Steph Keane ARTIFICIAL LEATHER CALENDER OPERATOR Work Phone: [phone]-[facility] CenterEqqnbgybnp19-41-8712 15:54-0400Systolic blood mm[Hg]Steph Keane ARTIFICIAL LEATHER CALENDER OPERATOR Work Phone: [facility] CenterXccnmulywi51-71-1716 15:37-0400Body mass index (BMI) [Ratio]29.23 kg/v0GpfhqupxSteph Keane ARTIFICIAL LEATHER CALENDER OPERATOR Work Phone: [facility] CenterCoxshlqwtp16-48-2512 15:37-0400Body .48 kgSteph Rickettserly ARTIFICIAL LEATHER CALENDER OPERATOR Work Phone: [facility] CenterZrttrejpwc67-31-7000 15:37-0400Diastolic blood qvfxalzb84 mm[Hg]Steph Keane ARTIFICIAL LEATHER CALENDER OPERATOR Work Phone: [facility] CenterFbzxollmcb26-88-4382 15:37-0400Systolic blood jdbfadtl546 mm[Hg]Steph Rickettserly ARTIFICIAL LEATHER CALENDER OPERATOR Work Phone: [facility] CenterPyfxyecwdb41-57-9087 15:55-0400Body mass index (BMI) [Ratio]29.45 kg/e1TvhzbrTeena Sarmiento RN Work Phone: [phone] [place], [place] 5616709-29-2025 15:55-0400Body sohbby72.03 kgTeena Sarmiento RN Work Phone: [phone] [place], [place] 3670309-17-2025 14:32-0400Body mass index (BMI) [Ratio]27.82 kg/p5Mwzqu Kiesha DO Work Phone: [facility] CenterBooyqtadvj46-86-3179 14:32-0400Body kg Nathan Kiesha DO Work Phone: [facility] CenterYktupmyopa84-60-4801 14:32-0400Diastolic blood mm[Hg]Nathan Kiesha DO Work Phone: [place] [address]Nyojlrbkbg64-43-5257 14:32-0400Systolic blood zpgpzdig315 mm[Hg]Nathan Kiesha DO Work Phone: [facility] CenterQsnpgvdtuq17-74-5990 15:36-0400Body wadopk454.5 cmGeorge Kageovanian DO Work Phone: [facility] HospitalIhxyvazcnm46-47-3784 15:36-0400Body mass index (BMI) [Ratio]27.62 kg/v6Fjguwhsherita Beltran DO Work Phone: KMSouthPo[facility] HospitalTivshlnmzy31-71-6961 15:36-0400Body temperature 97.11 [degF]Eliceo Beltran DO Work Phone: [facility]OS[facility] HospitalFsvyuhratt34-65-4706 15:36-0400Body wycatv84.49 kgGeorsherita Beltran DO Work Phone: [facility] HospitalQeehprotsj19-00-1155 15:36-0400Diastolic blood sojcbicd91 mm[Hg]Eliceo Beltran DO Work Phone: P[facility] HospitalCblbmgfucr99-14-1069 15:36-0400Heart rate97 /min Eilceo Beltran DO Work Phone: [facility] CenterAuqhxhxmyg81-08-4127 15:36-7646AcU4% (BldA) [Mass fraction]98 %Eliceo Beltran DO Work Phone: [facility]ES[facility]Po[facility] HospitalLwngyemxvh08-05-3255 15:36-0400Systolic blood iipjxttr441 mm[Hg]Eliceo Beltran DO Work Phone: [facility] CenterJqvkoallas44-21-9724 15:42-0400Body mass index (BMI) [Ratio]26.48 kg/p2Cwhfe Fazio DO Work Phone: [facility] CenterKslqjduopq59-04-3288 15:42-0400Body uikvku37.68 kgCorepearl Cabrerao DO Work Phone: [facility] CenterRiiowuepew99-05-2311 15:42-0400Diastolic blood mm[Hg]Nathan Cabrerao DO Work Phone: [facility] CenterIlysmvfbjh00-59-5573 15:42-0400Systolic blood rihrjkxx172 mm[Hg]Nathanpearl Cabrerao DO Work Phone: [facility] CenterDhhdwuyghf36-92-4940 14:33-0400Body mass index (BMI) [Ratio]26.73 kg/w2Fehqj Kiesha DO Work Phone: [facility] CenterOogwjjxhkc48-45-2146 14:33-0400Body kaaegs38.28 kgCorey Kiesha DO Work Phone: [facility] CenterSejjzxvvbh76-25-9375 14:33-0400Diastolic blood sqchobms05 mm[Hg]Nathan Kiesha DO Work Phone: 1([phone] [place], [place] [address]Zqvsycmgyx25-95-8302 14:33-0400Systolic blood mm[Hg]Nathan Kiesha DO Work Phone: 1([phone] [place], [place] [address]Fdfxhfmeqq97-61-5661 14:45-0400Body mass index (BMI) [Ratio]25.24 kg/a4Guisk Kiesha DO Work Phone: 1(965)876-[address] [place], [place] [address]Kudwcfksiw88-77-1090 14:45-0400Body .6 kg Nathan Kiesha DO Work Phone: 1(707)168-[address] [place], [place] [address]Qcexfedmzk94-98-8711 14:45-0400Diastolic blood exgojoys84 mm[Hg]Nathan Kiesha DO Work Phone: [phone] [place], [place] [address]Ipzsvmhmhq66-07-5572 14:45-0400Systolic blood xblohffj339 mm[Hg]Nathan Kiesha DO Work Phone: [phone] [place], [place] [address]Skvijiowol09-79-0990 10:29-0400Body mass index (BMI) [Ratio]25.68 kg/m2[facility]06-06-2025 10:29-0400Body uoqjij01.69 kgThree [facility]02-24-2025 15:08-0500Body mass index (BMI) [Ratio]25.99 kg/c2Yyycu Kiesha DO Work Phone: 1(852)983-[address] [place], [place] [address]Huxtywhhnh26-71-4321 15:08-0500Body ymsrnj45.47 kgCorey Kiesha DO Work Phone: [phone] [place], [place] [address]Nkstunmfdx23-01-5773 15:08-0500Diastolic blood mmaqvimd82 mm[Hg]Nathan Kiesha DO Work Phone: 1(244)654-[address] [place], [place] [address]Qgcrumiqbu47-46-1350 15:08-0500Systolic blood ofcchqms691 mm[Hg]Nathan Kiesha DO Work Phone: 1(326)492-[address] [place], [place] [address]Vdvvgjddeq04-83-0007 15:53-0500Body lkszuc349.5 cmGemartha Beltran DO Work Phone: noSouthPointe HospitalLhwnnovtsi00-52-8812 15:53-0500Body mass index (BMI) [Ratio]25.61 kg/z2Eaquabmartha Beltran DO Work Phone: noSouthPointe HospitalIskmxnwbcq17-00-1049 15:53-0500Body temperature 97.11 [degF]Eliceo Beltran DO Work Phone: noSouthPointe HospitalYvqwpkokvq48-14-9928 15:53-0500Body .5 kg Eliceo Beltran DO Work Phone: noSouthPointe HospitalPhtjlzizmm93-50-0970 15:53-0500Diastolic blood mm[Hg]Eliceo Beltran DO Work Phone: noSouthPointe HospitalOonlkmqxou23-58-6220 15:53-0500Heart rate51 /min Eliceo Beltran DO Work Phone: noSouthPointe HospitalRghelpgoda92-30-2098 15:53-7797UgO7% (BldA) [Mass fraction]98 %Eliceo Beltran DO Work Phone: noSouthPointe HospitalOoholcxyjn16-65-4275 15:53-0500Systolic blood spbyefjx903 mm[Hg]Eliceo Beltran DO Work Phone: noSouthPointe HospitalDdvgzkerar75-85-8134 11:15-0400Body mass index (BMI) [Ratio]25.97 kg/t1Xfelm Fazio DO Work Phone: [facility] CenterAdgfqubcpq73-52-7803 11:15-0400Body jyaflb45.41 kgNathan Pop DO Work Phone: NOSouthPointe HospitalBheqklolit61-62-2714 11:15-0400Diastolic blood yjxkyepj35 mm[Hg]Nathan Pop DO Work Phone: [facility] CenterFyqlrwjalt06-13-9681 11:15-0400Systolic blood gwiyuvvx822 mm[Hg]Nathan Pop DO Work Phone: noSouthPointe HospitalZzfxbmyggb26-42-6522 10:02-0400Body mass index (BMI) [Ratio]25.39 kg/p0Dhpwb Kiesha DO Work Phone: [phone])750-[address] [place], [place] [address]Qdinrtolge77-17-6157 10:02-0400Body ykjuro92.96 kgCorey Kiesha DO Work Phone: 1(714)[facility] [place], [place] [address]Lvjmeiwgfe11-95-6876 10:02-0400Diastolic blood yiucfvyv01 mm[Hg]Ntahan Kiesha DO Work Phone: 1(812)401-[address] [place], [place] [address]Ibpxgskynk69-92-9148 10:02-0400Systolic blood vrqhzsyv827 mm[Hg]Nathan Kiesha DO Work Phone: 1(537)[facility] [place], [place] [address]Jormrsfkpd66-49-3871 10:55-0500Body mass index (BMI) [Ratio]28.17 kg/i8Lunyq Kiesha DO Work Phone: 1(447)[facility] [place], [place] [address]Yfdknxewzg02-32-6085 10:55-0500Body cdqeln70.85 kgCorey Kiesha DO Work Phone: 1(974)[facility] [place], [place] [address]Loqwkpsxhc93-96-1529 10:55-0500Diastolic blood qofxtsqi03 mm[Hg]Nathan Kiesha DO Work Phone: 1(615)[facility] [place], [place] [address]Kdiwhwfykv87-46-7459 10:55-0500Systolic blood wluvlxwn092 mm[Hg]Nathan Kiesha DO Work Phone: 1(643)[facility] [place], [place] [address]Pekkvfnebr75-06-6843 17:31-0400Body temperature 98.96 [degF][facility]10-18-2023 17:31-0400 Diastolic blood wunanwpl95 mm[Hg][facility]10-18-2023 17:31-9302BUS6 99 %[facility]10-18-2023 17:31-0400Heart fcuv860 /minV[facility]10-18-2023 17:31-0400 Respiratory rate16 /min[facility]10-18-2023 17:31-0400 Systolic blood hhuyfqlp311 mm[Hg][facility]06-06-2023 10:55-0400Body wsdwip680.5 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 OR CERAMIC ARTIST Work Phone: [phone] Mzuiqu90-49-7011 10:55-0400Body cgazqg98.86 kgErin Reaper WEB UI DESIGNER.POTTER OR CERAMIC ARTIST Work Phone: [phone] Kbjnck53-81-0839 10:55-0400Diastolic blood dgxyucxx65 mm[Hg]Jihan Reaper WEB UI DESIGNER.POTTER OR CERAMIC ARTIST Work Phone: [phone] Xaijdm98-44-3440 10:55-0400Systolic blood xlcildqy603 mm[Hg]Jihan Reaper WEB UI DESIGNER.POTTER OR CERAMIC ARTIST Work Phone: [place] Xgdbpr11-96-3060 19:18-0500Diastolic blood zkoxbsbs79 mm[Hg][facility]03-08-2023 19:18-0500Heart rate98 /min[facility]03-08-2023 19:18-0500Nursing Progress Note ReasonOther: this RN discharged pt. pt verbalizes understanding and denies questiosn prior to discharge.[facility]03-08-2023 19:18-0500Respiratory rate16 /min[facility]03-08-2023 19:18-6792FrE2% (BldA) [Mass fraction]100 %[facility]03-08-2023 19:18-0500 Systolic blood mm[Hg][facility] 01-31-2023 18:00-0500Diastolic blood jxpavihr45 mm[Hg][facility]03-08-2023 18:00-0500Heart qrlp465 /minBar[facility]03-08-2023 18:00-0500Mean blood xtexmscl092 mm[Hg][facility]03-08-2023 18:00-4058LfN4% (BldA) [Mass fraction]99 %[facility]03-08-2023 18:00-0500 Systolic blood wsxtspki780 mm[Hg][facility] 01-31-2023 17:00-0500Diastolic blood hzwxvmne18 mm[Hg][facility]03-08-2023 17:00-0500Mean blood drfblevn359 mm[Hg][facility]03-08-2023 17:00-0500Systolic blood pressure 117 mm[Hg][facility]03-08-2023 16:38-0500Heart colx377 /minBar[facility]03-08-2023 16:38-0500Mean blood rpdzeqax406 mm[Hg][facility]03-08-2023 16:38-0500Respiratory rate18 /[facility] 01-31-2023 13:49-0500Body ymyjqnwijxl69.88 [degF][facility]03-08-2023 13:49-0500Heart jjoz712 /min[facility]02-04-2023 14:55-0500Body hmcujlbhrnh59.88 [degF][facility]02-04-2023 14:55-0500Diastolic blood mm[Hg][facility]02-04-2023 14:55-0500Heart rate84 /minBar[facility]02-04-2023 14:55-0500Mean blood mm[Hg][facility]02-04-2023 14:55-0500Respiratory rate20 /minBar[facility]02-04-2023 14:55-0571VkS9% (BldA) [Mass fraction]98 %[facility]02-04-2023 14:55-0500Systolic blood pressure 137 mm[Hg][facility]02-04-2023 14:35-0500Body vlwuhinxskz71.88 [degF][facility]02-04-2023 14:35-0500Diastolic blood jcagsnpm17 mm[Hg][facility]02-04-2023 14:35-0500Heart rate82 /minBar[facility] Center02-04-2023 14:35-0500Mean blood etdblvpr79 mm[Hg][facility]02-04-2023 14:35-0500Respiratory rate16 /minSt[facility]02-04-2023 14:35-6134CmC3% (BldA) [Mass fraction]97 %[facility]02-04-2023 14:35-0500Systolic blood bjcphovo341 mm[Hg][facility]02-04-2023 13:35-0500Body .88 [degF][facility]02-04-2023 13:35-0500Diastolic blood wfkzklyw36 mm[Hg][facility]02-04-2023 13:35-0500Heart rate80 /minSt[facility]02-04-2023 13:35-0500Mean blood mm[Hg] [facility]02-04-2023 13:35-0500Respiratory rate 17 /minBar[facility] Center02-04-2023 13:35-8661ZjX2% (BldA) [Mass fraction]96 %[facility]02-04-2023 13:35-0500Systolic blood kpjykxzm435 mm[Hg][facility]02-04-2023 13:00-0500Respiratory rate12 /minBar[facility]02-04-2023 12:55-0500Respiratory rate9 /minBar[facility]02-04-2023 12:50-0500Respiratory rate10 /[facility]02-04-2023 08:15-0500Body cjnkfxdqkcy97.24 [degF] [facility]02-04-2023 08:15-0500Heart yzho982 /min[facility]01-07-2023 13:41-0500Body cazjdqmqpxm81.2 [degF]Kathe Ryder DO Work Phone: 1(536)206-[address] [place], [place] [address]Arscxr63-93-2353 13:41-0500Diastolic blood qfsmvmga31 mm[Hg]Kathe Ryder DO Work Phone: [facility]Dwbwax09-[facility]-9719 13:41-0500Heart qpfm405 /min Kathe Ryder DO Work Phone: [phone] HospitalJkhigu45-47-9299 13:41-0500Respiratory rate18 /minKathe Ryder DO Work Phone: [facility] HospitalSxajbd97-12-7818 13:41-6418EqZ0% (BldA) [Mass fraction]99 %Kathe Ryder DO Work Phone: [facility] HospitalYwagfe95-19-6919 13:41-0500Systolic blood jxypivlu336 mm[Hg]Kathe Ryder DO Work Phone: [facility] HospitalPxpblp03-39-5620 00:45-0500Body gnygem161.5 cm Kathe Ryder DO Work Phone: [facility] HospitalWqkiis03-85-4237 00:45-0500Body mass index (BMI) [Ratio]25.61 kg/h4XpuzqpdqaKathe Ryder DO Work Phone: [facility] HospitalJyvsir33-50-6860 00:45-0500Body dlkkto66.5 kg Kathe yRder DO Work Phone: [facility] HospitalSlrwdk67-71-1056 22:26-0500Hourly Rounding Fredi KARASIK [address] [place], [place] [address]Comment on above:Result Comment: ensured that all pt belongings are sent with pt. pt has no questions or concerns. report given to EMS. pt stable and no s/s of distress. pt off unit to dhdfngen99-00-8534 22:00-0500Diastolic blood stntdtje49 mm[Hg]Fredi KARASIK [address] [place], [place] 0833001-02-2023 22:00-0500Heart wijh568 /minGregory KARASIK [address] [place], [place] 0833001-02-2023 22:00-0500 Hourly RoundingGregory KARASIK [address] [place], [place] 0833001-02-2023 22:00-0500Mean blood gzuqceds634 mm[Hg]Fredi KARASIK [address] [place], [place] 0833001-02-2023 22:00-0500 Systolic blood sumldepa403 mm[Hg]Fredi KARASIK [address] [place], [place] 0833001-02-2023 21:50-0500Blood Pressure LocationGregory KARASIK [address] [place], [place] 0833001-02-2023 21:50-0500 Diastolic blood bvcjeatr29 mm[Hg]Fredi KARASIK [address] [place], [place] 0833001-02-2023 21:50-0500Heart aqrq294 /minGregory KARASIK [address] [place], [place] 0833001-02-2023 21:50-0500 Hourly RoundingGregory KARASIK [facility]01-02-2023 21:50-0500Mean blood tezuukfb692 mm[Hg]Fredi SCHUMACHERASIK [address] [place], [place] 0833001-02-2023 21:50-0500 Respiratory rate18 /minFredi SCHUMACHERASIK [address] [place], [place] 0833001-02-2023 21:50-9158PoN7% (BldA) [Mass fraction]98 %Fredi SCHUMACHERASIK [address] [place], [place] 0833001-02-2023 21:50-0500 Systolic blood oswwgnik385 mm[Hg]Fredi KARASIK [address] [place], [place] 0833001-02-2023 21:37-0500Blood Pressure LocationGregrosa ABREUK [address] [place], [place] 0833001-02-2023 21:37-0500 Diastolic blood bpqyuwdi30 mm[Hg]Fredi SCHUMACHERASIK [address] [place], [place] 0833001-02-2023 21:37-0500Heart xsky607 /minFredi ABREUK [address] [place], [place] 0833001-02-2023 21:37-0500Mean blood qjiiwrfc545 mm[Hg]Fredi SCHUMACHERASIK [address] [place], [place] 0833001-02-2023 21:37-1927OwO5% (BldA) [Mass fraction]97 %Fredi SCHUMACHERASIK [address] [place], [place] 0833001-02-2023 21:37-0500 Systolic blood opxhhpjj760 mm[Hg]Fredi KARASIK [address] [place], [place] 0833001-02-2023 21:30-0500Blood Pressure LocationFredi SCHUMACHERASIK [address] [place], [place] 0833001-02-2023 21:30-0500Body eyfycrsvewg97.6 [degF][facility]i DORSEY [facility]01-02-2023 19:00-0500Body kfjbifpiaid23.24 [degF]Fredi DORSEY [facility]01-02-2023 17:15-0500Body xtyltqzvkka48.06 [degF]Fredi DORSEY [facility]01-02-2023 14:02-0500Heart rate99 /minFredi DORSEY [facility]08-19-2022 07:00-0400Body mddsfffvyua43.6 [degF]Kaylinn Dokken [address]08-19-2022 07:00-0400 Diastolic blood gjqqrezm62 mm[Hg]Kaylinn Dokken [address]08-19-2022 07:00-0400Heart rate80 /minKaylinn Dokken [address] [place], [place] 3677608-19-2022 07:00-0400Mean blood vczbuatk57 mm[Hg]Kaylinn Dokken [address] [place], [place] 3677608-19-2022 07:00-0400 Respiratory rate17 /minKaylinn Dokken [address]08-19-2022 07:00-0400 Systolic blood mm[Hg]Kaylinn Dokken [address] [place], [place] 3677608-19-2022 06:07-0400Body ngppxhunkdb49.24 [degF]Kaylinn Dokken [address]08-19-2022 06:07-0400 Diastolic blood mm[Hg]Kaylinn Dokken [address] [place], [place] 3677608-19-2022 06:07-0400Heart rate90 /minCharlotteylinn Dokken [address]08-19-2022 06:07-0400 Respiratory rate18 /minCharlotteylinn Dokken [address] [place], [place] 3677608-19-2022 06:07-0721JkV6% (BldA) [Mass fraction]100 %Kumar Villagomez [address]08-19-2022 06:07-0400 Systolic blood mm[Hg]Beatrisn Yulyen [address] [place], [place] 3677608-19-2022 05:30-0400 Hourly RoundingCorey KIESHA [address] [place], [place] [address]Comment on above:Result Comment: Pt discharged per physician orders. Pt ambulates off unit with a steady jqqx44-29-2336 05:15-0400Diastolic blood pliedgjz21 mm[Hg]Nathan KIESHA [address] [place], [place] 0833008-19-2022 05:15-0400Heart oafb139 /minCorey KIESHA [address] [place], [place] 0833008-19-2022 05:15-0400 Hourly RoundingCorey KIESHA [address] [place], [place] 0833008-19-2022 05:15-0400Mean blood ntenhsku80 mm[Hg]Nathan KIESHA [address] [place], [place] 0833008-19-2022 05:15-0400 Respiratory rate18 /minCorey KIESHA [address] [place], [place] 0833008-19-2022 05:15-0400 Systolic blood zltgukdf053 mm[Hg]Nathan KIESHA [address] [place], [place] 0833005-24-2022 11:00-0400Body egflrz683.02 cmCameron Edward Other nort [employer] Other 05-24-2022 11:00-0400Body mass index (BMI) [Ratio] 23.03 kg/h0Vhjwnxp [employer]tty [facility] [employer] Other 05-24-2022 11:00-0400Body prpmhu37.97 kgCamerojunior Loratty Other [facility] [employer] Other 03-17-2022 11:41-0400Body ydgwea867.48 cmMegan Billow DO Work Phone: [phone]-TJSZF[address] Work Phone: [phone] 11:41-0400Body mass index (BMI) [Ratio] 24.51 kg/w4Wezuv Billow DO Work Phone: KF-NYDPZ[address] Work Phone: [phone] 11:41-0400Body surface area Derived from formula1.61 k7Nmmci Billow DO Work Phone: RE-GVXIL[address] Work Phone: [phone] 11:41-0400Body mlmxok35.78 kgMegan Billow DO Work Phone: TD-JUEEJ[address] Work Phone: [phone] 11:41-0400Diastolic blood tnwgzpau13 mm[Hg] Charlene Billow DO Work Phone: UW-LAXME[address] Work Phone: [phone] 11:41-0400Systolic blood etgxtvhc565 mm[Hg] Charlene Billow DO Work Phone: MS-WGVJF[address] Work Phone: [phone] 11:41-58970 1Megan Billow DO Work Phone: EO-LXDRP[address] Work Phone: Comment on above:NLMJUFJANmlxTeuzd28-78-9604 14:53-0400Body znfypj007.48 cmMegan Billow DO Work Phone: YK-LECYU[address] Work Phone: [phone] 14:53-0400Body mass index (BMI) [Ratio] 21.77 kg/h1Jhzqq Billow DO Work Phone: JY-GWYCP[address] Work Phone: [phone] 14:53-0400Body surface area Derived from formula1.53 v2Tslhw Billow DO Work Phone: JX-NAAMB[address] Work Phone: [phone] 14:53-0400Body jkbsem09.98 kgMegan Billow DO Work Phone: LX-EQBME[address] Work Phone: [phone] 14:53-0400Diastolic blood uqdcutwl72 mm[Hg] Charlene Billow DO Work Phone: FF-HOKPD[address] Work Phone: [phone] 14:53-0400Heart jxzj625 /minMegan Billow DO Work Phone: QN-QYBIW[address] Work Phone: [phone] 14:53-0400Systolic blood mxqkldut198 mm[Hg] Charlene Billow DO Work Phone: BC-RAUTQ[address] Work Phone: [phone] 14:53-25440 1Megan Billow DO Work Phone: ET-UZDTO[address] Work Phone: Comment on above:GRAVPARAPainScale Encounters Encounter DateEncounter TypeCare ProviderFacilityStart: 10-06-2025 End: 45-55-0539Zjaxjt outpatient visit 25 minutesColleen E Matthias CLAYTON Work Phone: [phone]-Avpfv Medicine at [facility] Comment on above:Insulin controlled gestational diabetes mellitus (GDM) in third trimester (Primary Dx); Essential hypertension affecting in third trimesterStart: 10-06-2025 End: 84-26-3716zoenhxlvotGTDREST E MATTHIASProMedica University Hospit[facility] Medical Centertart: 10-05-2025 End: 04-22-9149Cpmienlyd encounterAnjana Davalos RNMaternal- [facility] at [facility]tart: 10-03-2025 End: 54-33-3092Wiemmpqcl Result EncounterSteph Keane NP Work Phone: noms External Department UnsolicitedStart: 10-03-2025 End: 88-36-4140Lnyhzerrn Result EncounterSteph Keane NP Work Phone: noms External Department UnsolicitedStart: 09-30-2025 End: 11-43-8987Rqbllwla flow sheetCorey Kiesha DO Work Phone: noms Pelsor OBGYNComment on above:Third trimester ([facility]); 31 weeks gestation of ([facility]); Pre-eclampsia in third trimester ([facility])Start: 09-30-2025 End: 86-25-9773wykqxcwakaZTZXV FAZIONot AvailableStart: 09-30-2025 End: 05-61-7441Xayqlm flowsheetCorey Kiesha DO Work Phone: noMS Pelsor OBGYNStart: 09-30-2025 End: 43-46-3819Ctwekp flowsheetCorey Kiesha DO Work Phone: NOMS Patti OBGYNStart: 09-28-2025 End: 52-41-3637Jtebxg OnlyChivo Springer PA-C Work Phone: [phone]-Ywbgp Medicine at [facility] Comment on above:Essential hypertension affecting in third trimester Start: 09-26-2025 End: 43-26-6604Mrraxjovt Result EncounterSteph Keane NP Work Phone: noms External Department UnsolicitedStart: 09-26-2025 End: 05-75-2344Qukgijtay Result EncounterSteph Keane NP Work Phone: noms External Department UnsolicitedStart: 09-21-2025 End: 91-53-5207iphmxwszufKtmltoa E Lavoy PA-C Work Phone: [phone]-Ccxga Medicine at [facility] Comment on above:Insulin controlled gestational diabetes mellitus (GDM) in third trimester (Primary Dx); Essential hypertension affecting in third trimesterStart: 09-21-2025 End: 43-78-9848Ynnppskca encounterVerito EDOUARD Work Phone: [phone]-Wwttq Medicine at [facility] Start: 09-19-2025 End: 29-19-9288Usatairce Result EncounterSteph Keane NP Work Phone: noms External Department UnsolicitedStart: 09-19-2025 End: 63-22-6920Dyeyvajmx Result EncounterSteph Keane NP Work Phone: noms External Department UnsolicitedStart: 09-17-2025 End: 07-20-2691Eukmri Breanna CAGE Work Phone: [phone]-Vpdax Medicine at [facility] Comment on above:Essential hypertension affecting in third trimester Start: 09-16-2025 End: 86-27-8705qozesbdxhdYENBS FAZIONot AvailableStart: 09-16-2025 End: 39-81-6267Wmywfujy flow sheetCorey Kiesha DO Work Phone: [facility] OBGYNComment on above:29 weeks gestation of ([facility]); Third trimester ([facility]); Hypertension affecting , antepartum ([facility]); Gestational diabetes mellitus (GDM), antepartum, gestational diabetes method of control unspecified([facility])Start: 09-16-2025 End: 26-33-7980Aldelh flowsheetCorey Kiesha DO Work Phone: [facility]BGYNStart: 09-16-2025 End: 91-43-8702Yfcqxv flowsheetCorey Kiesha DO Work Phone: [facility]BGYNStart: 09-16-2025 End: 00-01-2882Hbocklpzt Nirmal Harris [facility]: 09-15-2025 End: 92-99-6021YnkmhdMika Springer PA-C Work Phone: [phone]-Brsra Medicine at [facility] Comment on above:Essential hypertension affecting in third trimester Start: 09-10-2025 End: 03-31-5754Khkotn outpatient visit 25 minutesMadhuri Monroy MD Work Phone: [facility] [place]: 28 weeks gestation of (Primary Dx); Insulin controlled gestational diabetes mellitus (GDM) in second trimester; Essential hypertension affecting in third trimesterStart: 09-10-2025 End: 02-26-0253ojnrsxxggePZVXYNXP P [facility]amar[facility] Start: 09-04-2025 End: 61-25-3028Lgtjtn consultation new/estab patient 60 Annalee Denise MD Work Phone: [phone]-Tpdne Medicine at [facility] Comment on above:Diet controlled gestational diabetes mellitus (GDM) in second trimester (Primary Dx); Essential hypertension affecting in third trimesterStart: 09-04-2025 End: 58-53-3726ajwlhacjzdNYNHWFNona McAdena [facility] Medical Centertart: 09-03-2025 End: 25-67-4092Lxgkkmoy flow sheetSteph Keane ARTIFICIAL LEATHER CALENDER OPERATOR Work Phone: NOCC Pelsor OBGYNComment on above:Hypertension affecting , antepartum (HHS-HCC) (Primary Dx); 27 weeks gestation of (HHS-HCC); Second trimester (HHS-HCC)Start: 09-03-2025 End: 43-12-5926yuipaccszmLIVHIUTL EBERLYNot AvailableStart: 09-03-2025 End: 93-56-6107Ubotjt flowsheetSteph Keane ARTIFICIAL LEATHER CALENDER OPERATOR Work Phone: NOM[facility] OBGYNStart: 09-03-2025 End: 24-79-3623Fcruztrju Result EncounterCorey Kiesha DO Work Phone: noms External Department UnsolicitedStart: 09-03-2025 End: 78-27-3390Rgrhttunw Result EncounterCorey Kiesha DO Work Phone: noms External Department UnsolicitedStart: 09-01-2025 End: 41-40-1896Bysqanyec encounterCha Harris RNMaternal- Medicine at [facility]tart: 08-29-2025 End: 37-19-6911Togywpwiu Result EncounterSteph Keane NP Work Phone: noms External Department UnsolicitedStart: 08-29-2025 End: 00-76-3984Ikfrdsapb Result EncounterSteph Keane NP Work Phone: noms External Department UnsolicitedStart: 08-27-2025 End: 97-37-9531tstzjremuvFOZWWZXJ EBERLYNot AvailableStart: 08-27-2025 End: 69-92-6042Klgdzqym flow sheetSteph Keane ARTIFICIAL LEATHER CALENDER OPERATOR Work Phone: NOMS Patti OBGYNComment on above:26 weeks gestation of (HHS-HCC); Second trimester (HHS-HCC); induced hypertension, antepartum (HHS-HCC); Gestational diabetes mellitus (GDM) in second trimester, gestational diabetes method of control unspecified (HHS-HCC)Start: 08-27-2025 End: 14-93-7389Jznqil flowsheetSteph Elsa ARTIFICIAL LEATHER CALENDER OPERATOR Work Phone: NOZT Patti OBGYNStart: 08-27-2025 End: 85-05-6220Rgwfhv flowsheetSteph Keane ARTIFICIAL LEATHER CALENDER OPERATOR Work Phone: NOGY Patti OBGYNStart: 08-27-2025 End: 47-03-0316Kidzbwspz Result EncounterSteph Keane ARTIFICIAL LEATHER CALENDER OPERATOR Work Phone: noms External Department UnsolicitedStart: 08-25-2025 End: 37-03-0762Eunkonfdm Result EncounterGeneric External Data ProviderNOMS External Department UnsolicitedStart: 08-25-2025 End: 03-83-2513Emaeshcwv Result EncounterGeneric External Data ProviderNOMS External Department UnsolicitedStart: 08-24-2025 End: 38-32-6243gbqvhbsanhSssluq M Frey RN Work Phone: [phone]-Csvqm Medicine at [facility] Comment on above:Gestational diabetes mellitus (GDM) in second trimester, gestational diabetes method of control unspecifiedStart: 08-21-2025 End: 47-17-7049Lpaut abstractingScanning Provider ExternalMaternal- Medicine at [facility]tart: 08-18-2025 End: 18-96-9308Gpdol Aura Monroy MD Work Phone: [phone]-Lhkrz Medicine at [facility] Start: 08-15-2025 End: 21-07-2048zrsagcrzvvACFARMFX EBERLYFacility:FTMCStart: 08-12-2025 End: 86-74-0444Nhtbgalp flow sheetCorey Kiesha DO Work Phone: noms Pelsor OBGYNComment on above:24 weeks gestation of ([facility]); Second trimester ([facility]); Elevated glucose tolerance testStart: 08-12-2025 End: 75-51-3213fhhpycjyhjAMDZH FAZIONot AvailableStart: 08-12-2025 End: 41-92-8690nulbawswohRjaqp Bryant MANISHAOFacility:FTMCStart: 08-01-2025 End: 44-42-9869ipnwkvmuzbP KENNETH BELTRANFacility:FTMCStart: 07-30-2025 End: 01-65-9272Btdtujy encounter statusGemartha Hurtado Ruby DO Work Phone: [facility] Work Phone: Start: 07-30-2025 End: 87-14-6932Zzsarfyz preventive med est patient 18-39 yrsGeorsherita Hurtado Charlottecarol DO Work Phone: noms [facility] 230Comment on above: Wellness examination (Primary Dx); Hypertension, unspecified type ; Lipid screeningStart: 07-30-2025 End: 81-65-5307wrljfgudatJFVKMB R KAFTANNot AvailableStart: 07-30-2025 End: 33-80-0682Irmchr flowsheetEliceo Hurtado Ruby DO Work Phone: noms [facility] 230Start: 07-30-2025 End: 68-22-6336Jfecdd flowsreynoldEliceo Hurtado Ruby DO Work Phone: noms [facility] 230Start: 07-15-2025 End: 95-83-0410Hcwuyori flow sheetCorey Kiesha DO Work Phone: NOZZ Patti OBGYNComment on above:20 weeks gestation of ([facility]); Second trimester ([facility]); Diabetes mellitus screeningStart: 07-15-2025 End: 26-67-1093kqzbwlltluAAPFD FAZIONot AvailableStart: 07-15-2025 End: 50-33-7737Hphjkyscx Result EncounterCorey Kiesha DO Work Phone: NOTB External Department UnsolicitedStart: 07-15-2025 End: 42-75-1987Aqsowpmra Result EncounterCorey Kiesha DO Work Phone: NOMS External Department UnsolicitedStart: 06-22-2025 End: 30-95-0992Ydypheke flow sheetCorey Kiesha DO Work Phone: NOAU Pelsor OBGYNComment on above:Sinusitis, unspecified chronicity, unspecified location (Primary Dx); Second trimester ([facility]); 17 weeks gestation of ([facility]); Screening, , for anatomic survey ([facility])Start: 06-22-2025 End: 83-46-2056gncmxxntfrRJFDE FAZIONot AvailableStart: 06-22-2025 End: 21-27-3499Oshqbe flowsheetCorey Kiesha DO Work Phone: NOJA Pelsor OBGYNStart: 06-22-2025 End: 92-98-7469Pxbwnt flowsheetCorey Kiesha DO Work Phone: NOCS Patti OBGYNStart: 06-22-2025 End: 85-83-7365Keoohiav Result EncounterCorey Kiesha DO Work Phone: NOXW External Department UnsolicitedStart: 05-25-2025 End: 18-86-3189ktcdylzumrAKMWR FAZIONot AvailableStart: 05-25-2025 End: 10-55-8643Grejbprh flow sheetCorey Kiesha DO Work Phone: NOIL BCP OBComment on above:Nonintractable episodic headache, unspecified headache type (Primary Dx); Second trimester ([facility]); 13 weeks gestation of ([facility])Start: 05-25-2025 End: 40-05-9354Liuukl flowsheetCorey Kiesha DO Work Phone: NOMS BCP OBStart: 05-25-2025 End: 48-79-0197Lmvmpf flowsheetCorey Kiesha DO Work Phone: NOMS BCP OBStart: 05-04-2025 End: 35-13-3329Vnogobbhq Result EncounterCorey Kiesha DO Work Phone: NOMS External Department UnsolicitedStart: 05-04-2025 End: 65-75-3343Kxqjxvmnv Result EncounterCorey Kiesha DO Work Phone: noms External Department UnsolicitedStart: 05-01-2025 End: 30-77-2857Tkoyeurui Result EncounterCorey Kiesha DO Work Phone: noMS External Department UnsolicitedStart: 05-01-2025 End: 37-04-4868Gpanulqrd Result EncounterCorey Kiesha DO Work Phone: noms External Department UnsolicitedStart: 05-01-2025 End: 36-81-5737cqtfcohvmjRSYIKG Jose Angel AvailableStart: 05-01-2025 End: 14-67-8688Nfaysw outpatient visit 5 minutesNoms Bcp Ob Kiesha NurseNOMS BCP OBComment on above:GA: 3i5gNncvu: 03-13-2025 End: 75-38-1619nctxluumkmLebig R FAZIOFacility:FTMCStart: 03-13-2025 End: 96-05-8655Cqpoifb encounter procedureCorey R KIESHA [facility] Start: 02-02-2025 End: 90-41-3378Hradlbu encounter procedureDenny Rodríguez MD Work Phone: [facility] [place] Work Phone: Start: 02-02-2025 End: 35-62-1536vjczvhbgzrRofvz Baxter MD Work Phone: [facility] Work Phone: Start: 01-22-2025 End: 72-20-4109qzbrlppcfbNgygp R FAZIOFacility:FTMCStart: 01-22-2025 End: 71-05-9364Jhyhfzs encounter procedureCorey R KIESHA [facility] Start: 01-19-2025 End: 78-70-2633Sovfvw outpatient visit 15 minutesCorey Kiesha DO Work Phone: noms BCP OBComment on above:Pain in female genitalia on intercourse; EndometriosisStart: 01-19-2025 End: 53-06-8928tniucgsaupCXKKT FAZIONot AvailableStart: 01-19-2025 End: 02-96-9140Ycrwno flowsheetCorey Kiesha DO Work Phone: NOMS BCP OBStart: 01-19-2025 End: 88-08-8930Tboskm flowsheetCorey Kiesha DO Work Phone: NOMS BCP OBStart: 12-30-2024 End: 99-04-0433pgiavearwqGENLOY R TREYANNot AvailableStart: 12-30-2024 End: 53-75-0575Xedenz outpatient visit 15 minutesGeorge R Charlottecarol DO Work Phone: NODL [facility] 230Comment on above:Hypertension, unspecified type (CMS/HCC) (Primary Dx); Paroxysmal tachycardia, unspecified (CMS/HCC); Chronic right shoulder pain; Scapular dyskinesisStart: 08-18-2024 End: 88-22-4629Wipofz flowsheetCorey Kiesha DO Work Phone: noMS BCP OBStart: 08-18-2024 End: 25-53-3672Ggxjgh flowsheetCorey Kiesha DO Work Phone: noMS BCP OBStart: 08-18-2024 End: 56-10-3781Jupcsowqb Result EncounterCorey Kiesha DO Work Phone: noms External Department UnsolicitedStart: 08-18-2024 End: 61-28-9867Sxvjrrh encounter procedureCorey Kiesha DO Work Phone: [facility] Work Phone: Start: 08-18-2024 End: 06-76-1391Cizocefv preventive med est patient 18-39 yrsCorey Kiesha DO Work Phone: NOMS BCP OBComment on above:Well woman exam with routine gynecological examStart: 07-22-2024 End: 64-25-1060Rrnitr flowsheetCorey Kiesha DO Work Phone: NOMS BCP OBStart: 07-22-2024 End: 95-08-6568Kqswfb flowsheetCorey Kiesha DO Work Phone: NOAX BCP OBStart: 07-22-2024 End: 14-48-6978Sqbjkt outpatient visit 15 minutesCorey Kiesha DO Work Phone: NOMS BCP OBComment on above:Dysmenorrhea, unspecified Start: 47-96-7989Kphktimwm encounterMegan Billow DO Work Phone: [facility]art: 03-47-3687Ryahejjpv encounterMegan Billow DO Work Phone: [facility]May[facility]– NorthlandComment on above:Surgery CancelledStart: 02-13-2024 End: 57-52-9337Wgtzereqi Result EncounterCorey Kiesha DO Work Phone: NOPG External Department UnsolicitedStart: 02-13-2024 End: 38-24-0755Irspzgwpi Result EncounterCorey Kiesha DO Work Phone: noms External Department UnsolicitedStart: 01-15-2024 End: 55-40-0066Kzyyzicxj Result EncounterCorey Kiesha DO Work Phone: noms External Department UnsolicitedStart: 01-15-2024 End: 26-69-8243Lkpcyxdtz Result EncounterCorey Kiesha DO Work Phone: noms External Department UnsolicitedStart: 01-10-2024 End: 18-53-0724Swlrdq outpatient visit 15 minutesCorey Kiesha DO Work Phone: NOMS BCP OBComment on above:Menorrhagia with regular cycle; Pelvic pain in female; Uses controlStart: 39-75-6923XookjxBhkwu Billow DO Work Phone: [facility] CenterComment on above:Refill Request Start: 98-57-3597krknynlerlAugto Billow DO Work Phone: Obstetrics/GynecologyComment on above:painStart: 12-10-2023 End: 28-73-1049ynkwqlobzeKAJBU BILLOWFacility:[facility] Hospitaltart: 02-25-6597wlwbkriphhWuzfs Billow DO Work Phone: REM PIRES MCStart: 53-95-6258Shoafyv encounter procedureMegan Billow DO Work Phone: Obstetrics/GynecologyComment on above:office visit Start: 09-12-2023 End: 63-87-3851Lciaowpla department patient Berny Loco [facility] Start: 16-82-2313Kcshrb pelvic examinationMegan Billow DO Work Phone: Obstetrics/GynecologyComment on above:Pelvic pain in female (Primary Dx)Start: 70-61-2027scchjbuqsjJayhy Billow DO Work Phone: Obstetrics/GynecologyComment on above:painful periods Start: 08-24-2023 End: 81-07-1416Qvysns pelvic examinationErin Vicker WEB UI DESIGNER.POTTER OR CERAMIC ARTIST Work Phone: GynecologyComment on above:High-tone pelvic floor dysfunction (Primary Dx); Chronic pelvic pain in femaleStart: 08-24-2023 End: 25-01-8453Oawijhruutlr consultation with Kelton Downs APRN.POTTER OR CERAMIC ARTIST Work Phone: cCF [facility] MAINStart: 08-24-2023 End: 94-59-2449fpwxqjadiaDUHB REAPERFacility:[facility] HospitalStart: 25-94-5949dkdopcwrtdNroao Billow DO Work Phone: Obstetrics/GynecologyComment on above:painful period Start: 54-45-7514Drcdeznhn encounterMegan Billow DO Work Phone: GynecologyComment on above:Insurance Authorization (Orilissa)Start: 07-16-2023 End: 74-01-5704eohggtewurAVXYP BILLOWFacility:[facility] Hospitaltart: 06-12-2023 End: 61-36-1244fcmegqbnpzUTEDP BILLOWFacility:[facility] Hospitaltart: 06-12-2023 End: 36-71-9142Hzmgdbshek hospital visit by physicianandra [facility] Suki (I-Stat/1.5t) RadiologyComment on above:Pelvic and perineal pain [R10.2]Start: 05-17-2023 End: 79-87-4209Hifepi pelvic examinationMegan Billow DO Work Phone: Obstetrics/GynecologyComment on above:Endometriosis (Primary Dx); Pelvic and perineal painStart: 05-17-2023 End: 51-61-0939Mjbwbnmszlkw consultation with kikaCharlene Rodriguez DO Work Phone: Dre [facility]ASAINT MONICA'S HOMEtart: 05-17-2023 End: 38-31-8388rlpwgukylyAKKXT ALAN BAXTERFacility:[facility] Start: 84-77-9071Xfmvfcwhf encounterMekevin Billfanny DO Work Phone: GynecologyComment on above:Vaginal BleedingStart: 05-01-2023 End: 40-81-0292xyhmdncwzpMXVHRYang Stanleycility:[facility] Start: 05-01-2023 End: 33-36-9818Hxyoxhv encounter Lisa Downs APRN.POTTER OR CERAMIC ARTIST Work Phone: GynecologyComment on above:Chronic pelvic pain in female (Primary Dx); Constipation, unspecified constipation type; High-tone pelvic floor dysfunction; Diastasis of rectus abdominis; Dysmenorrhea; Other specified dyspareuniaStart: 05-17-2129sknmlgitddBffgl Billow DO Work Phone: Obstetrics/GynecologyComment on above:painfulStart: 01-31-2023 End: 65-90-8556Kjvrxhlyc department patient visitAstrit Phuc [facility] Start: 12-30-2022 End: 15-94-8564Vbrwmrp encounter procedureAstrit Phuc [facility] Start: 12-05-2022 End: 98-43-2161jtdbnxbkmtQQCVKadlec Regional Medical [facility] SHSStart: 12-05-2022 End: 04-52-8859Spsojh outpatient visit 15 minutesGin Leonorsrinath DAY Work Phone: [facility] HospitalComment on above:Pre- eclampsia, severe, delivered (Primary Dx)Start: 11-28-2022 End: 74-69-2536Fhnnqegcwq and management of inpatientH. [facility] M[facility] Center & Research InstituteStart: 11-28-2022 End: 32-31-4721Ehnhgurrrf and management of inpatientIndiana [facility] Work Phone: [facility] POSTPARTUMComment on above:Preeclampsia, severe, third trimester (Primary Dx)Start: 11-28-2022 End: 68-44-1338Mgb-admission assessmentGregrosa DORSEY [facility] Start: 11-27-2022 End: 23-99-8079WD TriageGregrosa DORSEY [facility] Start: 07-14-2022 End: 86-93-0002Fsdrxexhv department patient visitCharlotteshayjunior Villagomez [facility] Start: 07-14-2022 End: 03-37-5512GE TriageNathan POP [facility] Start: 04-25-2022 End: 13-57-0141Dangaof encounter procedureCAMERON DITTY [facility] Start: 04-18-2022 End: 28-56-6454oocsqbuzizSpegtmy Ditty Other [employer] [employer] Other Start: 52-01-8464Bpmaipx encounter procedureCamdorene CarrilloyFPG GastroenterologyStart: 65-79-5525Tqvuyv outpatient visit 15 minutes Charlene Rodriguez DO Work Phone: [phone]-VXALQ-[address] Work Phone: Start: 09-29-2021 End: 27-95-7974lfkhhldfbcZKOUJ ROWENA [facility] Centerpearl [facility] HospitalStart: 09-29-2021 End: 63-50-4330bbbcoihnuxQYHGE ROWENAMercy Health [facility] HospitalStart: 27-61-0531SNVOKIisdq Billow DO Work Phone: [phone]-NENOP-[address] Work Phone: Start: 49-03-3548HNEANZQSWN, Provider: Charlene Rodriguez, Status: Pen, Time: 2:45 Ina Chau MD Work Phone: [phone]-Peyfoml-[place] Work Phone: Start: 97-80-0583Ijpvz Oswaldo Chau MD Work Phone: [phone]-Yrfpaiy-[place] Work Phone: Procedures DateProcedureProcedure DetailPerforming ClinicianStart: 16-43-8459KV OB BPP W NON-STRESSKristina Elsa ARTIFICIAL LEATHER CALENDER OPERATOR Work Phone: Start: 97-73-3537Zqeux dip stick/tablet rgnt non-auto w/o micrscpCorey Kiesha DO Work Phone: Start: 45-03-7296PT OB BPP W NON-STRESSKristina Elsa ARTIFICIAL LEATHER CALENDER OPERATOR Work Phone: Start: 78-66-0052UE OB BPP W NON-STRESSKristina Elsa ARTIFICIAL LEATHER CALENDER OPERATOR Work Phone: Start: 39-03-4161Urbsp dip stick/tablet rgnt non-auto w/o micrscpCorey Kiesha DO Work Phone: Start: 11-42-6725SSE BUNCorey Kiesha DO Work Phone: Start: 93-70-6008WPY URIC ACIDCorey Kiesha DO Work Phone: Start: 61-01-3054NPK ALTCorey Kiesha DO Work Phone: Start: 00-16-0618FZW ASTCorey Kiesha DO Work Phone: Start: 11-64-3994ZFT CREATININECorey Kiesha DO Work Phone: Start: 08-19-3001USX URINE T PROTEIN CREAT RATIOCorey Kiesha DO Work Phone: Start: 09-30-4538Tqnxc dip stick/tablet rgnt non-auto w/o micrscpKristina Elsa ARTIFICIAL LEATHER CALENDER OPERATOR Work Phone: Start: 47-50-9035FNU TOTAL PROTEIN 24 HOUR URINE Generic External Data ProviderStart: 24-27-8807VR OB BPP W NON-STRESS Steph Elsa ARTIFICIAL LEATHER CALENDER OPERATOR Work Phone: Start: 97-62-2343OUU URINE T PROTEIN CREAT RATIO Generic External Data ProviderStart: 93-13-4684FQZ CBC WITH AUTO DIFFGeneric External Data ProviderStart: 95-66-8021Nnxdb dip stick/tablet rgnt non-auto w/o micrscpKristina Elsa ARTIFICIAL LEATHER CALENDER OPERATOR Work Phone: Start: 16-05-5336Vmedyslf identified in Urine by CultureGeneric External Data ProviderStart: 95-11-5928Xwwwfej quantitative blood xcpt reagent stripNot In System Ref ProvStart: 27-52-5406HMFIOS HOUR GLUCOSE TOLERANCE 100 GM LOADNot In System Ref ProvStart: 96-64-4151Cstqd dip stick/tablet rgnt non-auto w/o micrscpCorey Kiesha DO Work Phone: Start: 55-61-7298XVV 1H POST 50G LOADNot In System Ref ProvStart: 96-80-7258YAW, SERUM, OPEN SPINA BIFIDACorey Kiesha DO Work Phone: Start: 05-98-1317Qhsyg dip stick/tablet rgnt non-auto w/o micrscpCorey Kiesha DO Work Phone: Start: 92-95-1464GQJFUYCSE VAGINITIS (HTRX)Nathan Kiesha DO Work Phone: Start: 66-34-8042Kwold dip stick/tablet rgnt non-auto w/o micrscpCorey Kiesha DO Work Phone: Start: 52-69-7402Ypkoa dip stick/tablet rgnt non-auto w/o micrscpCorey Kiesha DO Work Phone: Start: 34-76-9256Vxbzakhg screenMadhuri Monroy MD Work Phone: Start: 26-42-5036Nwdz scrn 1+ class nonchromoNot In System Ref ProvStart: 73-01-8302Zaybyvsmmz glycosylated t3aQnxqr R Kiesha DO Work Phone: Start: 14-43-2566Xmrkyzbht c antibodyNot In System Ref ProvStart: 35-01-8571JHE 1&2 AB/AG SCREEN (P24 AG)Not In System Ref ProvStart: 08-12-5814Xqdt ia hepatitis b surface antigenNot In System Ref ProvStart: 82-79-4928ADBL AND SCREENNot In System Ref ProvStart: 26-39-7971OPM TESTCorey Kiesha DO Work Phone: Start: 63-47-4170Dpxfg dip stick/tablet rgnt non-auto w/o micrscpCorey Kiesha DO Work Phone: Start: 39-69-2439DO OB TRANSVAGINALCorey Kiesha DO Work Phone: Start: 02-51-4039VGT,APTIMA HPV,AGE GDLNCorey Kiesha DO Work Phone: Start: 44-68-7116Gfowdbvgawo observation [Identifier] in Cervix by Cyto stainCorey Kiesha DO Work Phone: Start: 21-49-3150BYY 12-LEADCorey Kiesha DO Work Phone: Start: 91-63-3590FS PELVIS W/ TRANSVAGINALCorey Kiesha DO Work Phone: Start: 96-35-9949Tqbu cerv/vag auto thin layer prep mnl screenCorey Kiesha DO Work Phone: Start: 21-67-0260Eag pelvis w/o & w/contrast material Charlene Billow DO Work Phone: Start: 37-17-8778Pvuaq count platelet automatedMichael O'Cormier WEB UI DESIGNER - POTASH FLAKER Work Phone: Start: 57-12-0721Ctouk count platelet automatedCassie Constantino MD Work Phone: Start: 27-75-5357Zatwe streptococcus group b amplified probe tqCassie Constantino MD Work Phone: Start: 37-07-8316CHX and Rh group [Type] in Blood by Confirmatory Carmine Constantino MD Work Phone: Start: 99-79-1294Dsfbo typing serologic Cait Constantino MD Work Phone: Start: 77-80-0519Sqtgoqcvamckd metabolic panelCassie Constantino MD Work Phone: Start: 20-74-5417Sdmlmqey hiv-1&hiv-2 single result Megadyne [id number]: 76-35-9347Hssb ia hepatitis b surface antigenMegaalexis [id number]: 83-36-4579EyflzlcwiuXOZEZNR EDWARD Start: 08-30-2020 End: 33-61-3001Xqsgodzj screenComment on above:Performed By: #### T+S #### [facility] [address] [place], [place] [address]Oyyzd Comment: TEST TYPE + SCREEN WAS CANCELLED, 08/30/2020 13:37 JOP.Performed By: #### T+S #### [facility] [address] [place], [place] [address]Pkmvz: 33-21-3799MMNGQ SHOULDER OPEN DISTAL CLAVICLE EXCISION 1CAMERON [email or web address] Comment on above:RIGHT SHOULDER OPEN DISTAL CLAVICLE EXCISIONRIGHT SHOULDER OPEN DISTAL CLAVICLE EXCISIONAppendectomyCAMERON [email or web address] betamethasone (substance)Fredi WILLIAN comment on above:Dose #1: 11/27/22ColonoscopyCAMERON EDWARD Endoscope, device (physical object)[place] LaparoscopyTeri Chau MD Work Phone: Plan of Treatment DateCare ActivityDetailAuthorStart: 92-33-6985Totsag Vaccines (1 of 2)Zoster Vaccines (1 of 2)[facility] Campusa HealthStart: 10-67-3035Ludrwxjqg for malignant neoplasm of cervixNOMS HealthcareStart: 01-61-6213Eqkzyuhnz for malignant neoplasm of cervixPap SmearNOMS HealthcareStart: 52-12-1883Jsotd BMI ScreeningAdult BMI ScreeningProMetrohealth Main Campus Medical Centerca Health SystemStart: 93-93-7424Rbwxpbb ScreeningTobacco ScreeningProMetrohealth Main Campus Medical Centerca Health SystemStart: 15-66-3028Vxinq BMI ScreeningAdult BMI ScreeningProMetrohealth Main Campus Medical Centerca Health SystemStart: 95-90-6252Imxth BMI ScreeningAdult BMI ScreeningProMedica Health SystemStart: 11-03-2025 End: 06-26-0604Pbcwwzb encounter cgztazzcy33/09/2025 2:30 PM EST Office Visit Maternal- Medicine at [facility] [address] [place] [phone] Chivo Springer PA-C [address] [facility] [address] [address] [facility]: 10-14-2025 End: 48-33-4942Rizujiu encounter lekzawrha46/19/2025 3:30 PM EST Routine [facility] Patti YOUNGN [address] [place], [id number] Nathan Pop DO [address] [place] [address] NOMShalonda IYERGYNStart: 10-08-2025 End: 74-38-3849Ujuvagf encounter tzxubsyht45/13/2025 8:00 AM EST Appointment Maternal Medicine [place] [address] [facility] [address] [place] [phone] Medicine ElmoStart: 10-06-2025 End: 95-27-4839Kppvrchqltfb consultation with esygwpo7610/06/2025 2:30 PM EST Telemedicine Maternal- Medicine at [facility] [address] [place] [phone] Chivo Springer PA-C [address] [facility] [address] [address] [facility]: 10-05-2025 End: 68-53-9222Ztwgagg encounter eywabeqqm43/10/2025 3:00 PM EST Office Visit Maternal- Medicine at [facility] [address] [place] [phone] Chivo Springer PA-C [address] [facility] [address] [address] [facility]: 10-05-2025 End: 10-83-7475Hsoufliakwle consultation with yofeost0610/05/2025 3:00 PM EST Telemedicine Maternal- Medicine at [facility] [address] [place] [address] Chivo Springer PA-C [address] [address] [facility]: 42-25-1973CXG ( or age 60+ yrs) (1 - Risk 1-dose series)RSV ( or age 60+ yrs) (1 - Risk 1-dose series)[facility] Caretart: 09-30-2025 End: 18-57-6426Qtjxebn encounter procedureNOMS Patti YOUNGNComment on above: ArrivedStart: 09-16-2025 End: 25-14-6840UV biophysical profile w non stress testUS biophysical profile w non stress test Imaging Routine Gestational diabetes mellitus (GDM),antepartum, gestational diabetes method of control unspecified ([facility]) Expected: 09/16/2025, Expires: 09/16/2026NOMS HealthcareComment on above:Expected: 09/16/2025, Expires: 09/16/2026Start: 09-15-2025 End: 40-70-7771Mwhnkmz encounter nmttdssaa15/21/2025 2:50 PM EDT Routine NOMShalonda MOODY [id number] Zenobia Gutierrez PA [address] [place] [address] NOMShalonda Izaguirrert: 09-10-2025 End: 87-25-0028Fespgflxlmhw consultation with xbyunnz1909/10/2025 11:00 AM EDT Telemedicine [facility] [address] [phone] Madhuri Monroy MD [address] [facility], [address] [place] [id number] [facility] ElmoStart: 09-10-2025 End: 24-64-6383Cxepnkl encounter vmxkkawmb22/16/2025 9:45 AM EDT Appointment [facility] [address] [id number] [phone] Medicine [facility]: 09-07-2025 End: 54-66-7486Mesbczz encounter procedureNOMS BCP OBStart: 09-04-2025 End: 41-30-7625Xzeigkb encounter easigsgnz75/10/2025 3:00 PM EDT Office Visit Maternal- Medicine at [facility] [address] [place] [phone] Mine Denise MD [address] [facility], [address] [place] [address] [facility] 09-03-2025 End: 08-36-0896Yktyxfj encounter procedureNOMS Armstrong OBGYNComment on above: [facility] HealthcareStart: 08-27-2025 End: 56-33-5058Luvgkvs encounter yxgqzddmj53/02/2025 3:20 PM EDT Routine NOMShalonda [place] OBGYN [address] [place], [phone] Steph Keane NP [address] [place] [address] NOMS Patti Izaguirrert: 08-27-2025 End: 58-03-9846Nefspzp aminotransferase [Enzymatic activity/volume] in Serum or PlasmaALT Lab Routine induced hypertension, antepartum (HHS-HCC) Expected: 08/27/2025 (Approximate), Expires: 08/27/2026[facility] HealthcareComment on above:Expected: 08/27/2025 (Approximate), Expires: 08/27/2026Start: 08-27-2025 End: 41-46-2108Arcikkqgh aminotransferase [Enzymatic activity/volume] in Serum or PlasmaAST Lab Routine induced hypertension, antepartum (HHS-HCC) Expected: 08/27/2025 (Approximate), Expires: 08/27/2026[facility] HealthcareComment on above:Expected: 08/27/2025 (Approximate), Expires: 08/27/2026Start: 08-27-2025 End: 93-26-2569DMU W Auto Differential panel - BloodCBC and differential Lab Routine induced hypertension, antepartum (HHS-HCC) Expected: 12/2024 (Approximate), Expires: 08/27/2026[facility] HealthcareComment on above: Expected: 08/27/2025 (Approximate), Expires: 08/27/2026art: 08-27-2025 End: 60-21-4952Wgnaerwoes [Mass/volume] in Serum or PlasmaCreatinine Lab Routine induced hypertension, antepartum (HHS-HCC) Expected: 08/27/2025 (Ap proximate), Expires: 08/27/2026[facility] Healthcare Work Phone: comment on above:Expected: 08/27/2025 (Approximate), Expires: 08/27/2026Start: 08-27-2025 End: 77-21-4894Sixrejy dehydrogenase [Enzymatic activity/volume] in Serum or Plasma by Lactate to pyruvate reactionLactate dehydrogenase Lab Routine induced hypertension, antepartum (HHS-HCC) Expected: 08/27/2025, Expires: 08/27/2026[facility] HealthcareComment on above:Expected: 08/27/2025, Expires: 08/27/2026Start: 08-27-2025 End: 08-76-7821Izidpjw, urine, 24 hourProtein, urine, 24 hour Lab Routine induced hypertension, antepartum (HHS-HCC) Expected: 08/27/2025 (Approximate), Expires: 08/27/2026[facility] HealthcareComment on above:Expected: 08/27/2025 (Approximate), Expires: 08/27/2026Start: 08-27-2025 End: 95-95-7401Wj and pttPt and ptt Lab Routine induced hypertension, antepartum (HHS-HCC) Expected: 08/27/2025, Expires: 08/27/2026[facility] Comment on above:Expected: 08/27/2025, Expires: 08/27/2026Start: 08-27-2025 End: 75-72-2157Abnuc [Mass/volume] in Serum or PlasmaUric acid Lab Routine induced hypertension, antepartum (HHS-HCC) Expected: 08/27/2025 (Bouchra roximate), Expires: 08/27/2026[facility] HealthcareComment on above:Expected: 08/27/2025 (Approximate), Expires: 08/27/2026Start: 08-27-2025 End: 62-16-8848Hwyz nitrogen [Mass/volume] in Serum or PlasmaBUN Lab Routine induced hypertension, antepartum (HHS-HCC) Expected: 08/27/2025, Expires:08/27/2026[facility] HealthcareComment on above:Expected: 08/27/2025, Expires: 08/27/2026Start: 08-27-2025 End: 53-38-3684AK biophysical profile w non stress testUS biophysical profile w non stress test Imaging Routine induced hypertension, antepartum ([facility]-HCC) Gestational diabetes mellitus (GDM) in second trimester, gestational diabetes method of control unspecified ([facility]-HCC) Expected: 08/27/2025 (Approximate), Expires: 02/25/2026[facility] HealthcareComment on above:Expected: 08/27/2025 (Approximate), Expires: 02/25/2026Start: 08-24-2025 End: 29-31-0736xggtgjlrhz69/29/2025 1:30 PM EDT Support Visit Maternal- Medicine at [facility] [address] [place] [facility] [id number] Teena Sarmiento, RN [address] [facility] [place] [address] Kerline Augustin, RD [address] [facility] [facility] [address] [place] [address] [facility] 08-24-2025 End: 04-88-7114Mhsgmyb encounter mxlbleiei11/29/2025 11:00 AM EDT Office Visit NOMS BCP OB [address] [place] [phone] Nathan Pop, DO [address] [place] [address] NOMS BCP OBStart: 08-12-2025 End: 73-63-2217Uhogbvn encounter mrfoctmwb49/17/2025 2:40 PM EDT Routine NOMShalonda YOUNGN [address] [place], [id number] Nathan Pop, DO [address] [place] [address] NOMShalonda Armstrong OBGYNStart: 08-12-2025 End: 05-30-5254Vuqqqqyokdw of glucose 3 hours after glucose challenge for glucose tolerance testGlucose tolerance, 3 hours Lab Routine Elevated glucose tolerance test Expected: 08/12/2025 (Approximate), Expires: 08/12/2026[facility] Work Phone: comment on above:Expected: 08/12/2025 (Approximate), Expires: 08/12/2026Start: 08-12-2025 End: 74-07-8635Kxzmqtbvskkq / ancillary services qmnspbrfew94/17/2025 2:00 PM EDT Ancillary Procedure NOMS Patti YOUNGN [address] [place] [address] [place] [address] GGNO Patti OBGYNStart: 07-31-2025 End: 15-73-9257DHS W Auto Differential panel - BloodCBC and differential Lab Routine Hypertension, unspecified type Wellness examination Expected: 07/31/2025 (Approximate), Expires: 08/29/2025[facility] Work Phone: Comment on above:Expected: 07/31/2025 (Approximate), Expires: 08/29/2025Start: 07-31-2025 End: 91-37-8809Vomvwpsiigded metabolic 2000 panel - Serum or PlasmaComprehensive metabolic panel Lab Routine Hypertension, unspecified type Wellness examination Expected: 07/31/2025 (Approximate), Expires: 08/29/2025[facility] HealthcareComment on above:Expected: 07/31/2025 (Approximate), Expires: 08/29/2025Start: 07-31-2025 End: 39-15-4111Pnjzh 1996 panel - Serum or PlasmaLipid panel Lab Routine Wellness examination Lipid screening Expected: 07/31/2025 (Approximate), Exp ires: 08/29/2025[facility] HealthcareComment on above:Expected: 07/31/2025 (Approximate), Expires: 08/29/2025Start: 07-30-2025 End: 27-64-2473Ugxnast encounter ircocstjr08/04/2025 3:40 PM EDT Office Visit [facility] [address] [place] [address] [place] [address] Eliceo Beltran DO [address] [place] [address] [place] [address] ArrivedNOFormerly [facility] 230Comment on above:ArrivedStart: 24-78-2890QYMRL-19 Vaccine ( season)COVID-19 Vaccine ( season)[facility] HealthcareStart: 07-27-2025 Influenza vaccinationNOMI HealthcareStart: 07-15-2025 End: 23-42-6167Zlbbqkl encounter /20/2025 3:30 PM EDT Routine NOMS Patti OBGYN [address] [facility] [address] [place], [id number] Nathan Pop, [address] [place] [address] NOMS Patti OBGYNStart: 07-15-2025 End: 67-95-6231Necinofkamcs / ancillary services nztjpepmib08/20/2025 2:30 PM EDT Ancillary Procedure NOMS Patti OBGYN [address] [facility] [place] [phone] NOMS Armstrogn OBGYNStart: 07-15-2025 End: 51-29-7512KNS panel - Blood by Automated countCBC Lab Routine Diabetes mellitus screening Expected: 07/15/2025 (Approximate), Expires: 07/15/2026[facility] Work Phone: comment on above:Expected: 07/15/2025 (Approximate), Expires: 07/15/2026Start: 07-15-2025 End: 50-74-1311Vtbduoqciox of glucose 1 hour after glucose challenge for glucose tolerance testGlucose tolerance, 1 hour Lab Routine Diabetes mellitus screening Expected: 07/15/2025 (Approximate), Expires: 07/15/2026[facility] HealthcareComment on above:Expected: 07/15/2025 (Approximate), Expires: 07/15/2026Start: 06-22-2025 End: 20-71-1275Yobyqkd encounter qummvxkrq45/28/2025 2:10 PM EDT Routine NOMS Patti OBGYN [address] [facility] [place] [address] [phone] Nathan Pop, [address] [place] [address] ArrivedNOMS Patti OBGYNComment on above:ArrivedStart: 06-22-2025 End: 67-04-8717Yders fetoprotein, maternalAlpha fetoprotein, maternal Lab Routine Second trimester ([facility]) 17 weeks gestation of ([facility]) Expected: 06/22/2025 (Approximate), Expires: 12/23/2025[facility] Healthcare Comment on above:Expected: 06/22/2025 (Approximate), Expires: 12/23/2025Start: 06-22-2025 End: 42-04-0626ID for pregnancyUS OB 14+ weeks anatomy scan Imaging Routine Screening, , for anatomic survey ([facility]) Expected: 06/22/2025, Expires: 09/22/2025[facility] Healthcare Work Phone: comment on above:Expected: 06/22/2025, Expires: 09/22/2025Start: 05-25-2025 End: 03-28-3102Zpokqds encounter bukveplvl91/30/2025 2:40 PM EDT Routine NOMS BCP OB [address] [facility] [place] [address] Nathan Pop, DO [address] [facility] [place] [address] NOMS BCP OBStart: 05-01-2025 End: 81-69-5964BHK/RhABO/Rh Lab Routine Missed menses , unspecified gestational age Expected: 05/01/2025 (Approximate), Expires: 05/01/2026[facility] HealthcareComment on above:Expected: 05/01/2025 (Approximate), Expires: 05/01/2026Start: 05-01-2025 End: 22-80-1274Gnjun type and Indirect antibody screen panel - BloodType and screen Lab Routine Missed menses , unspecified gestational age Expected: 05/01/2025 (Approximate), Expires: 05/01/2026[facility] Healthcare Work Phone: comment on above:Expected: 05/01/2025 (Approximate), Expires: 05/01/2026Start: 05-01-2025 End: 90-02-9207Epzgn of abuse panel - Urine by Screen methodRapid drug screen, urine Lab Routine , unspecified gestational age Encounter for supervision of normal first in first trimester Expected: 05/01/2025 (Approximate), Expires: 05/01/2026[facility] HealthcareComment on above:Expected: 05/01/2025 (Approximate), Expires: 05/01/2026Start: 01-19-2025 End: 93-72-8174Mvzedfu encounter procedureNOMS BCP OBComment on above:Arrived Start: 01-19-2025 End: 19-93-9245FspgjwdjoydeVlmcmrinjxja Lab Routine Pain in female genitalia on intercourse Endometriosis Expected: 01/19/2025(Approximate), Expires: 01/19/2026 [facility] Work Phone: comment on above:Expected: 01/19/2025 (Approximate), Expires: 01/19/2026Start: 08-18-2024 End: 81-93-9729Afqmmlx encounter procedureNOMS BCP OBComment on above:Arrived Start: 52-68-6360Sctabyafy vaccinationWayne Hospitaltart: 07-22-2024 End: 16-28-2939TK for pregnancyUS PELVIS-TRANSVAG IF INDICATED Imaging Routine Dysmenorrhea, unspecified Expected: 07/22/2024 (Approximate), Expires: 07/22/2025[facility] Work Phone: comment on above:Expected: 07/22/2024 (Approximate), Expires: 07/22/2025Start: 06-23-2024 End: 08-39-8151Tiiwvyz encounter lkzqifmrf60/29/2024 10:30 AM EDT Office Visit Obstetrics/Gynecology [address] [address] Charlene Rodriguez DO [address] [place] [address] 2 WEEK POST OPObstetrics/GynecologyComment on above:2 WEEK POST OPStart: 05-27-2024 End: 56-89-1774Wkejnbnnk to same day surgery yeoacc3605/27/2024 7:30 AM EDT - 05/27/2024 9:30 AM EDT Surgery [facility] Surgery [address] [place] [address] Charlene Rodriguez, DO [address] [place] [address] LAPAROSCOPY FULGURATION OR EXCISION OF LESIONS OF THE OVARY PELVIC VISCERA OR PERITONEAL SURFACE BY ANY METHODTrinity Health [facility] SurgeryComment on above:LAPAROSCOPY FULGURATION OR EXCISION OF LESIONS OF THE OVARY PELVIC VISCERA OR PERITONEAL SURFACE BYANY METHODStart: 05-27-2024 End: 26-34-3110Ihho fulg/exc ovary viscera/peritoneal surfaceLAPAROSCOPY FULGURATION OR EXCISION OF LESIONS OF THE OVARY PELVIC VISCERA OR PERITONEAL SURFACE BYANY METHOD Endometriosis 05/27/2024 7:30 AM EDTME ORStart: 05-27-2024 Subsequent hospital visit by jkbzyldva82/02/2024 7:30 AM EDT Hospital Encounter [facility] Surgery [address] [place] [address] Charlene Rodriguez, DO [address] [place] [address] [phone] (F ax) Endometriosis [N80.9][facility] SurgeryComment on above:Endometriosis [N80.9]Start: 07-09-0663Yvjqxkdlg vaccinationInfluenza Vaccine (#1)[facility] HealthcareComment on above:Postponed from 07/27/2023 (Patient Refused)Start: 05-20-2024 End: 02-94-6731rjwbzdqbtf44/25/2024 10:00 AM EDT [facility] SOFTWARE DEVELOPMENT ADVISOR [facility] [address] [address] [place], [employer] Person Nurse [address] [address] RN GLENNGYN [facility] MOBComment on above:RN TEACHINGStart: 04-22-2024 End: 37-56-0622Fttuvsh encounter /28/2024 9:00 AM EDT Office Visit N[facility]S [facility] [address] [place] [address] Denny Rodríguez MD [address] [place] [address] NOMS SEP FMStart: 44-86-0762UDqW,Tdap and Td Vaccines (7 - Td or Tdap)DTaP,Tdap and Td Vaccines (7 - Td or Tdap)[facility] SystemStart: 24-10-9749BTaS/Tdap/Td Vaccines (7 - Td or Tdap)DTaP/Tdap/Td Vaccines (7 - Td or Tdap)[facility]: 48-57-5587Stoub microalbumin profileDTaP,Tdap,Td Vaccine (7 - Td or Tdap)[facility]: 01-30-2024 End: 91-96-9396Mxdaxpn encounter /06/2024 11:10 AM EST Consult NOMS [facility] OB [address] [facility] [place] [address] Nathan Pop DO [address] [place] [address] NOMS [facility] OBStart: 01-15-2024 End: 18-25-3762Aiwibjdboswl / ancillary services ijngswuwgd25/20/2024 8:00 AM EST Ancillary Procedure NOMS [facility] [address] [facility] [place] [address] [facility]S [facility] OBStart: 01-10-2024 End: 16-39-1963KC for pregnancyUS PELVIS-TRANSVAG IF INDICATED Imaging Routine Pelvic pain in female Expected: 01/10/2024 (Approximate), Expires: 01/10/2025 [facility] Work Phone: comment on above:Expected: 01/10/2024 (Approximate), Expires: 01/10/2025Start: 45-97-0732Paouncotxk Health ScreeningBehavioral Health ScreeningWayne Hospitaltart: 48-75-5859Qwuczbnqtz AssessmentDepression AssessmentCleWVUMedicine Harrison Community Hospitaltart: 68-17-4164Vtipa-19 Vaccine ( season) Covid-19 Vaccine ( season)[facility]: 70-67-5241Lttumrhpa vaccinationWayne Hospitaltart: 80-77-1971JWJMURCDMC ASSESSMENTDEPRESSION ASSESSMENTWayne Hospitaltart: 33-97-4424Lebwqqngt vaccinationInfluenza Vaccine (#1)[facility] HospitalStart: 48-94-4467NZK, Provider: Charlene Rodriguez, Status: Pen, Time: 1:30 PMFUV, Provider: Charlene Rodriguez, Status: Pen, Time: 1:30 PM FC-MZOLD-Ruaxft [address] Work Phone: Start: 45-38-9702DJZ, Provider: Charlene Rodriguez, Status: Pen, Time: 11:15 AMFUV, Provider: Charlene Rodriguez, Status: Pen, Time: 11:15 AM HC-EXCXP-Gkrvpm 320 Work Phone: Start: 10-15-7566GCB TESTINGPAP TESTINGWayne Hospitaltart: 71-93-1923Avxuufylf for malignant neoplasm of cervixWayne Hospitaltart: 83-03-4153YWkX,Tdap and Td Vaccines (1 - Tdap)DTaP,Tdap and Td Vaccines (1 - Tdap)[facility]: 02-51-2978KGgZ/Tdap/Td Vaccines (1 - Tdap)DTaP/Tdap/Td Vaccines (1 - Tdap)[facility] HospitalStart: 39-72-5215Nnoqf microalbumin profileWayne Hospitaltart: 41-97-0949Afwgr BMI Follow Up Plan Adult BMI Follow Up PlanCarteret Health Caretart: 59-77-3483Xyuro BMI ScreeningAdult BMI ScreeningCarteret Health Caretart: 91-89-7498LRJFLM PCP TEAM CHRONIC DISEASE VISITANNUAL PCP TEAM CHRONIC DISEASE VISITSelect [facility] Start: 00-89-4334PG CONTROLLED (<130/80)BP CONTROLLED (<130/80)[facility] Start: 09-13-6201FQCSFWKCE C SCREENINGHEPATITIS C SCREENINGSelect Medical [facility] Start: 68-14-9591Rqwbczqbc C screeningHepatitis C ScreeningSelect Medical [facility] Start: 59-84-4357EAU SCREENINGHIV SCREENINGWayne Hospitaltart: 91-82-2279FGP screeningHIV ScreeningWayne Hospitaltart: 33-93-1022Bvuzfhs of varicella vaccinationVaricella Vaccines (1 of 2 - 13+ 2-dose series)[facility] CenterStart: 24-26-6201Hixavgdesd ScreeningDepression ScreeningCarteret Health Caretart: 18-05-1008Zhtqull ScreeningTobacco ScreeningCarteret Health Caretart: 99-73-3569Wlkeydzfk vaccinationVaricella Vaccines (1 of 2 - 2-dose childhood series)[facility] HospitalStart: 19-11-3642PIH Vaccines (1 of 1 - Standard series)MMR Vaccines (1 of 1 - Standard series)[facility] HospitalStart: 68-40-5306Pnzzgucab vaccinationVaricella Vaccines (1 of 2 - 2-dose childhood series)[facility] Start: 69-07-5521HLHNQ-19 VACCINE (#1)COVID-19 VACCINE (#1)[facility] Start: 61-25-1183ERRQGGQWC B (1 of 3 - 3-dose series)HEPATITIS B (1 of 3 - 3- dose series)[facility]: 01-91-0498Kcqeohxqb B Vaccine (1 of 3 - 3- dose series)Hepatitis B Vaccine (1 of 3 - 3-dose series)[facility]: 05-77-1621Cgxlnmpsa B Vaccines (1 of 3 - 3-dose series)Hepatitis B Vaccines (1 of 3 - 3-dose series)[facility] HospitalStart: 49-38-5371Buetn panelLipid PanelSumma HealthBacteria identified in Urine by CultureUrine culture Microbiology Routine Missed menses Ordered: 05/01/2025[facility] HealthcareComment on above:Ordered: 05/01/2025BC W Auto Differential panel - BloodCBC and differential Lab Routine Missed menses , unspecified gestational age Ordered: 05/01/2025[facility] HealthcareComment on above:Ordered: 05/01/2025ytology Cervical or vaginal smear or scraping studyPap Smear Pathology and Cytology Routine Well woman exam with routine gynecological exam Ordered: 08/18/2024[facility] Healthcare Work Phone: comment on above:Ordered: 08/18/2024Hemoglobin A1c/Hemoglobin.total in BloodHemoglobin A1c Lab Routine Missed menses , unspecified gestational age Ordered: 05/01/2025[facility] HealthcareComment on above: Ordered: 05/01/2025Hepatitis B virus surface Ag [Presence] in Serum or Plasma by ImmunoassayHepatitis B surface antigen Lab Routine Missed menses , unspecified gestational age Ordered: 05/01/2025[facility] HealthcareComment on above: Ordered: 05/01/2025Hepatitis C virus Ab [Presence] in Serum or Plasma by ImmunoassayHepatitis C antibody Lab Routine Missed menses , unspecified gestational age Ordered: 05/01/2025[facility] HealthcareComment on above:Ordered: 05/01/2025HIV-1/HIV-2 antigen/antibody combination immunoassayHIV-1 and HIV-2 antibodies Lab Routine Missed menses , unspecified gestational age Ordered: 05/01/2025[facility] HealthcareComment on above:Ordered: 05/01/2025 End: 30-84-8629Ytj pelvis w/o & w/contrast materialMRI FEMALE PELVIS WO/W IVCON Radiology Routine Pelvic and perineal pain 1 Occur[facility] 05/17/2023 [facility] Work Phone: Comment on above:1 Occurrences starting 05/17/2023 until 4Reagin Ab [Presence] in Serum by RPRRPR Lab Routine Missed menses , unspecified gestational age Ordered: 05/01/2025[facility] Comment on above:Ordered: 05/01/2025Rubella antibody, IgGRubella antibody, IgG Lab Routine Missed menses , unspecified gestational age Ordered: 04/2025[facility] HealthcareComment on above:Ordered: 05/01/2025 End: 71-02-4419ThxzabWashington County Memorial Hospital Work Phone: Comment on above:Once (Lab) for 1 Occurrences starting 11/30/2022 until 11/30/2022, 1 completed End: 90-40-2397UF for pregnancyUS OB follow up transabdominal approach Imaging Routine Gestational diabetes mellitus (GDM), antepartum, gestational diabetes method of control unspecified (HHS-HCC) every 4 weeks for 2 Occurrences starting 09/16/2025 until 12/17/2025[facility] Work Phone: comment on above:every 4 weeks for 2 Occurrences starting 09/16/2025 until [facility] Immunizations Immunization DateImmunizationNotesCare OgxdefdkVkuswmuh39-21-1206gbhujunjf A vaccine, adult dosageCorey Kiesha DO Work Phone: [facility] CenterBzgyymttpr47-71-6636gtufh papilloma virus vaccine, quadrivalentCorey Kiesha DO Work Phone: [facility] CenterEoubrrehqy08-84-9425gupekymof, seasonal, injectable, preservative freeCorey Kiesha DO Work Phone: [facility] CenterMssdlgkfzh22-57-4038gwjfgfodx virus vaccine, unspecified formulationGina Moschella DO Work Phone: [facility] HospitalIiwleb81-00-6411qvwoj papilloma virus vaccine, quadrivalentCorey Kiesha DO Work Phone: [facility] CenterEjyowtdvtc28-16-7761uhnloippi A vaccine, adult dosageCorey Kiesha DO Work Phone: [facility] CenterDvontebfho15-34-4433ngtel papilloma virus vaccine, quadrivalentCorey Kiesha DO Work Phone: [facility] CenterEoelzbyxed29-17-6911gewuuoa toxoid, reduced diphtheria toxoid, and acellular pertussis vaccine, adsorbedCorey Kiesha DO Work Phone: [facility] CenterMhpewnixkm48-73-0188tchxdksbkclwd polysaccharide (groups A, C, Y and W-135) diphtheria toxoid conjugate vaccine (MCV4P)Nathan Kiesha DO Work Phone: [facility] CenterMktuibbeqz94-33-7200rjsgcqimhf, tetanus toxoids and acellular pertussis vaccine, unspecified formulationCorey Kiesha DO Work Phone: [facility] CenterCbvnkptglo79-56-4457cfgvfqf, mumps and rubella virus vaccineCorey Kiesha DO Work Phone: [facility] CenterKtuizcpelj63-75-5348pofdusfuxo vaccine, inactivatedCorey Kiesha DO Work Phone: [phone] CenterMtnbjwfaii73-83-8544gzgbzaqjaw, tetanus toxoids and acellular pertussis vaccine, unspecified formulationCorey Kiesha DO Work Phone: [phone] CenterIidhkydwrh12-86-9003OID-Kdhrdhfujhw influenzae type b conjugate vaccineCorey Kiesha DO Work Phone: [phone] CenterBscgkhngiy14-93-7724nrwdgvpqw B vaccine, pediatric or pediatric/adolescent dosageCorey Kiesha DO Work Phone: [phone] CenterEmxfxsikxd39-36-4156qfrfwor, mumps and rubella virus vaccineCorey Kiesha DO Work Phone: [phone] [place], [place] [address]Oaaeuhptri06-46-2516zjvqhurok poliovirus vaccine, live, oralCorey Kiesha DO Work Phone: [phone] [place], [place] [address]Eyfxeswegg25-76-9989VOZ-Quhdgtlpjki influenzae type b conjugate vaccineCorey Kiesha DO Work Phone: [phone] [place], [place] [address]Zcejwzwmut81-04-4187txfapvidq B vaccine, pediatric or pediatric/adolescent dosageCorey Kiesha DO Work Phone: [phone] [place], [place] [address]Kxtpbjgxii01-28-2524ldqvfobnt poliovirus vaccine, live, oralCorey Kiesha DO Work Phone: [phone] [place], [place] [address]Ghgqfrmjqh41-48-2020JPQ-Aoqqubtembz influenzae type b conjugate vaccineCorey Kiesha DO Work Phone: [phone] [place], [place] [address]Sbszxyjzaq39-98-3014qvhfuskvh B vaccine, pediatric or pediatric/adolescent dosageCorey Kiesha DO Work Phone: [phone] [place], [place] [address]Jfhstsrgmw31-08-4496mujuoffoi poliovirus vaccine, live, oralCorey Kiesha DO Work Phone: [phone] HealthcareNEGATED: Highlighted row has not occurred!48-70-5532cldjmdi, mumps and rubella virus vaccineKatcarlos Ryder DO Work Phone: [facility] HealthComment on above:Deferred: Other - Rubella ImmuneNEGATED: Highlighted row has not occurred!08-74-4287yaqguki toxoid, reduced diphtheria toxoid, and acellular pertussis vaccine, janetKathe Ryder DO Work Phone: [facility] HospitalComment on above:Deferred: No longer needed - Refused Tdap vaccine. Payers DatePayer CategoryPayerPolicy [id number] Managed Care - [facility] [id number] [facility]ICA[facility] [id number] [id number] Fe [facility] 1.2.840.873220.1.13.693.2.7.9.942202.362997.06179-48-9788Pmpgjlr00-09-9411 GpvzykxHLU605P5780455-65-5179Hwcuhlm Health Insurance 1.2.840.172499.1.13.693.2.7.9.453225.25008[id number] 2019Medicaid1.2.840.145946.1.13.159.2.7.3.700215.93611-83-8084Ulrctkx Health Gcrlsypsp64[id number] 2..1.151018.3.579.2.174 [id number] 2..1.324870.3.57[id number] 2..1.474325.3.579.2.[id number] 2..1.063244.3.57[id number] 2..1.174040.3.57[id number] 2..1.103261.3.57[id number] 2..1.167424.3.57[id number] 2..1.587477.3.579.[id number] 2.840.1.436603.3.57[id number] 2.0.1.687075.3.57[id number] 2.840.1.943993.3.57[id number] 2.0.1.955034.3.57[id number] 2..1.595721.3.57[id number] 2.0.1.757150.3.57[id number] 2..1.688419.3.579.[id number] 2..1.269130.3.57[id number] 2..1.055574.3.579.2.[id number] 2..1.082444.3.579.[id number] 2..1.474643.3.57[id number] 2.0.1.721622.3.57[id number] 2..1.690910.3.579.2.4[id number] 2.0.1.155161.3.579.[id number] 2.840.1.852883.3.579.[id number] 2..840.1.410147.3.579.[id number] 2..840.1.885192.3.579.2.[id number] 2..840.1.017015.3.579.[id number] 2.16.840.1.93708[id number] 2.840.1.158654.3.579.2.531 Social History DateTypeDetailFacilityStart: 01-06-2021 End: 03-27-8065Tauhrl uses seat beltAlways uses seat beltNOMS HealthcareStart: 12-10-2018 End: 81-89-0853Gpqrpes smoking statusNever smoked tobacco (finding)[facility]: 80-99-0991Iroxqom smoking statusNeverOhio State Harding Hospitaltart: 01-06-2021 End: 11-90-8425Gsf Assigned At [facility] [employer] Other ToSelect Medical Specialty Hospital - [facility] NorthComment on above: denies.Tobacco smoking statusOhio State Harding Hospitaltart: 12-10-2018 End: 59-25-1227Zgpxosk use and exposureSmokeless tobacco non-userWayne Hospitaltart: 04-11-2023 End: 70-43-6186Qrhinqm intakeCurrent drinker of alcohol (finding)[facility] Hospitaltart: 56-79-6300Uciqaio Commentmaybe a few drinks a monthSelect Medical [facility] Rehabilitation [facility] Start: 64-69-8854Nys Assigned At [facility] CenterNot on [facility] Hospitalumfl HealthStart: 01-10-2024 End: 36-78-4288Hnraosz intakeLifetime non-drinker (finding)[facility] HealthWithin the last year, have you [...] got money to buy more.Never trueNOMS HealthcareStart: 75-09-2709Fvewsjawd69PIVD HealthcareStart: 49-12-1240Vwpijaz Commentcaffeine: 1-2 cups per day, coffee and popNOMI HealthcareStart: 85-03-7636Ucrpenl SDOH IPV Ofes1Zcibr HealthStart: 80-11-5578Kwgbwbu SDOH Housing Places Qaade6Fhthz HealthStart: 04-12-[address] [facility] HealthStart: 11-18-2022 End: 41-65-8151Anhvraud to SARS-CoV-2 (event)Not sureSulakehealth beachwood medical center HealthAre you now , , , , never or living with a partner? MarriedNOMS HealthcareDo you feel stress - tense, restless, nervous, or anxious, or unable to sleep at night because yourmind is troubled all the time - these days [OSQ]Only a littleNOMI HealthcareStart: 12-02-2018 End: 11-73-0747ExwAssjiq (finding)[facility], Avontart: 49-12-4414Juj Assigned At [facility] Townshiptart: 08-19-2025 End: 13-24-1475Yfzddcrux beverage intakeCurrent non-drinker of alcohol (finding) [facility] CenterTravelmenu [employer] [facility] Medical Equipment Procedure CodeEquipment CodeEquipment Original TextEquipment IdentifierDates [id number]: 08-20-2025 End: each by In Vitro route Daily Use to check FSBS four times daily [id number]: 08-20-2025 End: 02-67-3631Uvw pen needles to give insulin.[id number]: 09-04-2025 Functional Status WdjbBhwqnlfujwRyixwkEvvffesh10-06-5850Xpqab score [AUDIT-C]0 09/10/2025 10:17 AM EDT AshleyDanae Martinez [facility]09-04-2025Patient Health Questionnaire 2 item (PHQ-2) [Reported][facility] CenterDtgzsulqai78-57-5962Ioyxe score [AUDIT-C]1 12/29/2024 10:25 PM EST Mychart, GenericNOMS Tyuhfkhgtm85-47-9324Aot often do you have a drink containing alcohol?Monthly or less 12/29/2024 10:25 PM EST Mychart, Generic Monthly or lessNOMS Ekhpvapvok27-04-3416Bnuseahsub status Patient does not drink 12/29/2024 10:25 PM EST Mychart, Generic Patient does not drinkNOSouthPointe HospitalQhfvshxcqp49-39-2936Zje often do you have 6 or more drinks on 1 occasion?Never 12/29/2024 10:25 PM EST Mychart, Generic NeverNOMS [facility] 59-31-0043Yysrkpn Health Questionnaire 2 item (PHQ-2) [Reported][facility] 15-49-2606Mdtlbaaajc StatusN/[facility]03-08-2023Functional StatusN/[facility]02-04-2023Functional StatusN/[facility]01-02-2023Functional StatusN/[facility] 07-14-2022N/[facility] Clinical Notes 04-18-2022 to 10-06-2025 Note Date & VkzfCxlsJbwomgbw83-50-8070 History of Present illness Narrative* Chivo Springer PA-C - 10/06/2025 2:30 PM EST Maternal- Medicine Consultation VIDEO Patient is present at work, provider present at [facility] HISTORY OF PRESENT ILLNESS: Juhi Naidu [...] values to us weekly by e-mail to: [email or web address] or by fax to: [phone] Chivo Sprniger PA-C Maternal- Medicine Office phone: [phone] Chivo Springer PA-C 10/06/25 1606 documented in this encounterAshtabula [facility] Center11-10-2025 Miscellaneous Notes* Telephone Encounter - Anjana Davalos RN - 10/05/2025 2:39 PM EST Left message for patient to send in blood sugar logs prior to video visit toady in [facility] at 3 PM. Also, Instructed patient to contact [facility] if unable to keep appointment today at [facility], then to call at [phone] option 1 to reschedule. documented in this encounterAshtabula County Medical Center11-10-2025 Telephone encounter Note* Telephone Encounter - Anjana Davalos RN - 10/05/2025 2:39 PM EST Left message for patient to send in blood sugar logs prior to video visit toady in [facility] at 3 PM. Also, Instructed patient to contact [facility] if unable to keep appointment today at [facility], then to call at [phone] option 1 to reschedule. [facility]11-05-2025 History of Present illness Narrative* [...] to check FSBS. Blood Glucose Monitoring Suppl (D-Yodlee Glucometer) w/Device kit 1 kit, Does not [...] John San infection GDM (gestational diabetes mellitus) ([facility]) Headache History of menstrual cramps ([facility]) Varicella zoster Visual impairment HISTORY PAST MEDICAL HISTORY SOCIAL HISTORY Past Medical History: Diagnosis Date Amenorrhea d/t oral contraceptive pills Endometriosis John San infection GDM (gestational diabetes mellitus) ([facility]) Headache History of menstrual cramps severe Hypertension ([facility]) x1 Varicella zoster unsure Visual [...] nursing note reviewed. Exam conducted with a sugarcane planter present. Vitals: Estimated body mass index is 30.36 kg/m as calculated from the following: Height as of 07/30/25: 5' 2 . Weight as of this encounter: 166 lb. BP: 140/82 Patient's last menstrual period was 02/21/2025. Assessment/Plan ICD-10-CM 1. Third trimester ([facility]) Z34.93 POCT urinalysis dipstick manually resulted 2. 31 weeks gestation of ([facility]) Z3A.31 3. Pre-eclampsia in third trimester ([facility]) O14.93 Return OB: Patient presents [...] of: Nathan Pop DO documented in this encounterLafayette Regional Health CenterRfhsraaphw87-62-3248 Miscellaneous Notes* Telephone Encounter - Cha Harris [...] change for this week. documented in this encounterAshtabula County Medical Center11-03-2025 Telephone encounter Note* Telephone Encounter [...] this new insulin change for this week. [facility]10-27-2025 Miscellaneous Notes* Telephone Encounter - [...] blood sugar logs weekly. documented in this [facility]10-27-2025 Telephone encounter Note* Telephone Encounter [...] to send in blood sugar logs weekly. [facility] [employer] Nrsvfh56-51-8682 History of Present illness Narrative* Chivo Springer PA-C - 09/21/2025 12:28 PM EDT Insulin dose increased due to elevated fastings. Chivo Springer PA-C 09/21/25 1229 documented in this encounterAshtabula County Medical Center10-22-2025 Miscellaneous Notes* Telephone Encounter - [...] blood sugars next week. documented in this encounterAshtabula County Medical Center10-22-2025 Telephone encounter Note* Telephone Encounter [...] send in new blood sugars next week. [facility]10-22-2025 History of Present illness Narrative* [...] John San infection GDM (gestational diabetes mellitus) ([facility]) Headache History of menstrual cramps ([facility]) Varicella zoster Visual impairment HISTORY PAST MEDICAL HISTORY SOCIAL HISTORY Past Medical History: Diagnosis Date Amenorrhea d/t oral contraceptive pills Endometriosis Jonh San infection GDM (gestational diabetes mellitus) ([facility]) Headache History of menstrual cramps severe Hypertension ([facility]) x1 Varicella zoster unsure Visual impairment [...] nursing note reviewed. Exam conducted with a sugarcane planter present. Vitals: Estimated body mass index is 29.78 kg/m as calculated from the following: Height as of 25: 5' 2 . Weight as of this encounter: 162 lb 12.8 oz. BP: 120/80 Patient's last menstrual period was 02/21/2025. Assessment/Plan ICD-10-CM 1. 29 weeks gestation of ([facility]) Z3A.29 POCT urinalysis dipstick manually resulted 2. Third trimester ([facility]) Z34.93 POCT urinalysis dipstick manually resulted 3. Hypertension affecting , antepartum ([facility]) O16.9 4. Gestational diabetes mellitus (GDM), antepartum, gestational diabetes method of control unspecified ([facility]) O24.419 Return OB: Patient presents [...] and continues to report glucose log to [facility]. Follow up Ultrasound in 4 weeks. Orders Placed This Encounter Procedures POCT urinalysis dipstick manually resulted Follow Up: Patient is to return to office in 2 week for routine OB appointment. Documented by Steph Keane NP on behalf of: Nathan Pop DO documented in this encounterLafayette Regional Health CenterKlyhrcgoyn26-83-8557 History of Present illness Narrative* Madhuri Monroy MD - 09/10/2025 11:00 AM EDT Video Visit via Real-time Synchronous Audiovisual Provider Location: [facility], [facility]- MEDICINE [address] [place] [address], [address] [place] [address] Patient Location: Other [facility] office Patient Location Construction Framer: None Video Visit Consent Statement: I discussed [...] that there are some limitations compared to yxsp-ot-gkhy evaluations. We elected to proceed. 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 Patient does have ultrasound video visit [...] the provider today? none documented in this encounterAshtabula County Medical Center10-10-2025 History of Present illness Narrative* [...] Yes Have you been seen here at [facility] in a previous ? No Recent ER visits or hospitalizations? 09/03/25 [place] to r/o preeclampsia. Patient states labs WNL Bring blood sugar log or meter with you today? (Please bring them with you for every visit at [facility]) Yes Flu vaccine (Sep-January)? N/A Any [...] and the other consultants, we search on [employer] and all the available care everywhere epic I did review all the imaging studies of the patient available on EMR, ordered by the primary care physician and the other information technology consultant HABITS: Patient activity no restrictions, diet [...] checking blood glucose and remote evaluation through [facility] office until delivery. 5. 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 Patient does have ultrasound video visit [...] with questions or concerns. documented in this encounterLake County Memorial Hospital - WestReNew Power Yktggm45-36-5523 History of Present illness Narrative* Steph Keane [...] meal for a total of 4times daily. ryucuzikhr-gytqtol-offgikud (Fiorinal) 50-325-40 MG capsule 1 capsule, Oral, [...] San infection Headache History of menstrual cramps ([facility]) Varicella zoster Visual impairment HISTORY PAST MEDICAL HISTORY SOCIAL HISTORY Past Medical History: Diagnosis Date Amenorrhea d/t oral contraceptive pills Endometriosis John San infection Headache History of menstrual cramps severe Hypertension ([facility]) x1 Varicella zoster unsure Visual impairment [...] nursing note reviewed. Exam conducted with a sugarcane planter present. Vitals: Estimated body mass index is 29.41 kg/m as calculated from the following: Height as of 25: 5' 2 . Weight as of this encounter: 160 lb 12.8 oz. BP: 170/90 Patient's last menstrual period was 02/21/2025. ASSESSMENT & PLAN ICD-10-CM 1. 27 weeks gestation of ([facility]) Z3A.27 POCT urinalysis dipstick manually resulted 2. Second trimester ([facility]) Z34.92 Documented by Steph Keane NP on behalf of: Steph Keane NP documented in this encounterLafayette Regional Health CenterXivyxcrzxy11-54-0163 Miscellaneous Notes* Telephone Encounter - Cha Harris [...] to make that appt. documented in this encounterAshtabula County Medical Center10-07-2025 Telephone encounter Note* Telephone Encounter [...] to be transferred to the [facility] to make that appt. [facility] [employer] [id number] History of Present illness Narrative* Steph Keane [...] to check FSBS. Blood Glucose Monitoring Suppl ([employer]-Yodlee Glucometer) w/Device kit 1 kit, Does not [...] San infection Headache History of menstrual cramps ([facility]) Varicella zoster Visual impairment HISTORY [...] nursing note reviewed. Exam conducted with a sugarcane planter present. Vitals: Estimated body mass index is 29.23 kg/m as calculated from the following: Height as of 07/30/25: 5' 2 . Weight as of this encounter: 159 lb 12.8 oz. BP: (!) 158/92 Patient's last menstrual period was 02/21/2025. ASSESSMENT & PLAN ICD-10-CM 1. 26 weeks gestation of ([facility]) Z3A.26 POCT urinalysis dipstick manually resulted 2. Second trimester ([facility]) Z34.92 Return OB: Patient [...] labs and have her evaluated today at [facility] OB. I discussed with OB today and they are aware that patient is coming to be ev aluated. Orders Placed This Encounter Procedures POCT urinalysis dipstick manually resulted Follow Up: Patient is to return to office in 2 week for routine OB appointment. Documented by Steph Keane NP on behalf of: Steph Keane NP documented in this encounterLafayette Regional Health CenterKojjgdcjsj70-29-6365 Group counseling note* Group Note - Kerline [...] Face to face time was 80 minutes. [employer] Work Phone: [phone] 213-160809-29-2025 Miscellaneous Notes* Group Note - Kerline Augustin [...] time was 80 minutes. documented in this encounterLake County Memorial Hospital - WestOneflare [facility] HospitalPvqnir32-72-6049 History of Present illness Narrative* Steph Keane [...] San infection Headache History of menstrual cramps ([facility]) Varicella zoster Visual impairment HISTORY [...] nursing note reviewed. Exam conducted with a sugarcane planter present. Vitals: Estimated body mass index is 27.82 kg/m as calculated from the following: Height as of 07/30/25: 5' 2 . Weight as of this encounter: 152 lb 1.9 oz. BP: 138/82 Patient's last menstrual period was 02/21/2025. ASSESSMENT & PLAN ICD-10-CM 1. 24 weeks gestation of ([facility]) Z3A.24 POCT urinalysis dipstick manually resulted 2. Second trimester ([facility]) Z34.92 POCT urinalysis dipstick manually resulted [...] on Labetalol 100mg BID. Will refer to [facility] for evaluation. Patient deniesany Headache or blurred vision. Documented by Steph Keane NP on behalf of: Nathan Pop DO documented in this encounterLafayette Regional Health CenterBtxvwyxvzz47-71-1490 History of Present illness Narrative* Eliceo Beltran [...] infection Headache History of menstrual cramps Hypertension ([facility]) Varicella zoster Visual impairment Objective [...] Orders: Lipid panel; Future documented in this encounterLafayette Regional Health CenterOfgwkcbcfi46-86-1679 History of Present illness Narrative* Christine Ravi [...] nursing note reviewed. Exam conducted with a sugarcane planter present. Vitals: Estimated body mass index is 26.48 kg/m as calculated from the following: Height as of 12/30/24: 5' 2 . Weight as of this encounter: 144 lb 12.8 oz. BP: 120/80 Patient's last menstrual period was 02/21/2025. ASSESSMENT & PLAN ICD-10-CM 1. 20 weeks gestation of ([facility]) Z3A.20 POCT urinalysis dipstick manually resulted 2. Second trimester ([facility]) Z34.92 POCT urinalysis dipstick [...] of: Nathan Pop DO documented in this encounterLafayette Regional Health CenterBfakittqvt24-67-5464 History of Present illness Narrative* Steph Keane [...] San infection Headache History of menstrual cramps ([facility]) Varicella zoster Visual impairment HISTORY [...] nursing note reviewed. Exam conducted with a sugarcane planter present. Vitals: Estimated body mass index is 26.73 kg/m as calculated from the following: Height as of 12/30/24: 5' 2 . Weight as of this encounter: 146 lb 1.9 oz. BP: 118/74 Patient's last menstrual period was 02/21/2025. ASSESSMENT & PLAN (Z34.92) Second trimester ([facility]) Plan: POCT urinalysis dipstick manually resulted, Alpha fetoprotein, maternal, Alpha fetoprotein, maternal (Z3A.17) 17 weeks gestation of ([facility]) Plan: POCT urinalysis dipstick manually resulted, Alpha fetoprotein, maternal, Alpha fetoprotein, maternal (Z36.89) Screening, , for anatomic survey ([facility]) Plan: US OB 14+ [...] of: Nathan Pop DO documented in this encounterLafayette Regional Health CenterVqgfffftsv72-33-1596 History of Present illness Narrative* Steph Keane [...] San infection Headache History of menstrual cramps ([facility]) Varicella zoster Visual impairment HISTORY PAST MEDICAL HISTORY SOCIAL HISTORY Past Medical History: Diagnosis Date Amenorrhea d/t oral contraceptive pills Endometriosis Jonh San infection Headache History of menstrual cramps [...] nursing note reviewed. Exam conducted with a sugarcane planter present. Vitals: Estimated body mass index is 25.24 kg/m as calculated from the following: Height as of 12/30/24: 5' 2 . Weight as of this encounter: 138 lb. BP: 122/80 Patient's last menstrual period was 02/21/2025. ASSESSMENT & PLAN ICD-10-CM 1. Second trimester ([facility]) Z34.92 POCT urinalysis dipstick manually resulted 2. 13 weeks gestation of ([facility]) Z3A.13 Return OB: Patient [...] of: Nathan Pop DO documented in this encounterLafayette Regional Health CenterRatdgkqozn51-53-9779 History of Present illness Narrative* Hina Go [...] Dysmenorrhea 03/29/2023 Endometriosis 03/29/2023 Gastroparesis 03/29/2023 Hypertension ([facility]) 03/29/2023 Intractable migraine without aura and with status migrainosus ([facility]) 03/29/2023 Migraines ([facility]) 03/29/2023 Chronic pelvic pain in female 03/29/2023 Pain in female genitalia on intercourse 03/29/2023 Pain on swallowing 03/29/2023 Panic disorder ([facility]) 03/29/2023 Patellofemoral disorders, left knee 03/29/2023 Patellofemoral disorders, right knee 03/29/2023 Posterior calcaneal exostosis 03/29/2023 Scapular dyskinesis 03/29/2023 Scoliosis 03/29/2023 Seasonal allergic rhinitis due to pollen 03/29/2023 Tachycardia, paroxysmal ([facility]) 03/29/2023 Tension headache 03/29/2023 Vitamin B12 [...] or undercooked meat, and stay away from [facility]. Patient has also been advised [...] by: Hina Go LPN documented in this encounterLafayette Regional Health CenterYzifldudpm06-47-6007 History of Present illness Narrative* Candis Yaens, 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 - 01/19/2025 2:50 PM EST Reason for Appointment: Patient ID: Juhi Gama is a 29 y.o. female who presents for Painful [place] Patient presents today for Consult appointment. MEDICATIONS Current Outpatient Medications Medication Instructions jqwitxgtmf-yjtlhzvkoqags-xixyihwa 50-325-40 MG tablet 1 tablet, Oral, Every 6 hours PRN meloxicam (MOBIC) 15 mg, Oral, Daily metoprolol succinate XL (Toprol-XL) 25 MG 24 hr tablet Take 1 tablet by mouth daily ALLERGIES No Known Allergies PROBLEMS Active Ambulatory Problems Diagnosis Date Noted Acquired equinus deformity of foot 03/29/2023 Displacement of cervical intervertebral disc without myelopathy 03/29/2023 Dysmenorrhea 03/29/2023 Endometriosis 03/29/2023 Gastroparesis 03/29/2023 Hypertension ([facility]) 03/29/2023 Intractable migraine without aura and with status migrainosus ([facility]) 03/29/2023 Migraines ([facility]) 03/29/2023 Chronic pelvic pain in female 03/29/2023 Pain in female genitalia on intercourse 03/29/2023 Pain on swallowing 03/29/2023 Panic disorder ([facility]) 03/29/2023 Patellofemoral disorders, left knee 03/29/2023 Patellofemoral [...] nursing note reviewed. Exam conducted with a sugarcane planter present. Vitals: Estimated body mass index is [...] patient and patient given direct extension to Singing Waiter Or Waitress for any questions/concerns pertaining to fertility. Documented by Candis Yanes LPN on behalf of: Nathan Pop DO documented in this encounterLafayette Regional Health CenterUkzsgrhvqm31-78-0591 History of Present illness Narrative* Eliceo Beltran [...] min Stress: No Stress Concern Present (12/29/2024) [place] [employer] [employer] - Occupational Stress Questionnaire Feeling of Stress : Only a little Social Connections: Unknown (12/29/2024) Social Connection and Isolation Panel [NHANES] Frequency of Communication with Friends and Family: More than three times a week Frequency of Social Gatherings with Friends and Family: Once a week Attends Cheondoism Services: Patient declined Active Member of Clubs [...] with the patient today. Current Outpatient Medications: qhcduoztsz-ojgdmqbvofxxa-ytllnvva 50-325-40 MG tablet, Take 1 tablet by mouth every 6 (six) hours if needed for headaches, Disp: 20 tablet, Rfl: 0 desogestrel-ethinyl estradiol (Apri) 0.15-30 MG-MCG tablet, Take 1 tablet by mouth Daily, Disp: 21 tablet, Rfl: 12 metoprolol succinate XL (Toprol-XL) 25 MG 24 hr tablet, Take 1 tablet by mouth daily, Disp: 90 tablet, Rfl: 1 documented in this encounterLafayette Regional Health [id number] History of Present illness Narrative* Virgen Steen LPN - 08/18/2024 11:00 AM EDT Reason for Appointment: Patient ID: Juhi Cope is a 29 y.o. female who presents for Well Women Visit Patient presents today for Annual Exam. MEDICATIONS Current Outpatient Medications Medication Instructions reqboswmko-clzdphccdkxcc-bnvhguil 50-325-40 MG tablet 1 tablet, Oral, Every [...] 03/29/2023 Pain on swallowing 03/29/2023 Panic disorder ([facility]/HCC) 03/29/2023 Patellofemoral disorders, left knee 03/29/2023 Patellofemoral [...] Headache History of menstrual cramps severe Hypertension (CMS/[facility]) x1 Varicella zoster unsure Visual impairment [...] nursing note reviewed. Exam conducted with a sugarcane planter present. Vitals: Estimated body mass index is [...] of: Zenobia Gutierrez PA-C documented in this encounterLafayette Regional Health [id number] History of Present illness Narrative* Christine Ravi LPN - 07/22/2024 9:50 AM EDT Reason for Appointment: Patient ID: Juhi Cope is a 29 y.o. female who presents for Dysmenorrhea Patient presents today for Acute Visit. MEDICATIONS Current Outpatient Medications Medication Instructions jbkavtefah-qnmuibzdntchc-mrtyrgyj 50-325-40 MG tablet 1 tablet, Oral, Every [...] nursing note reviewed. Exam conducted with a sugarcane planter present. Vitals: Estimated body mass index is [...] of: Nathan Pop DO documented in this encounterLafayette Regional Health [id number] Telephone encounter Note* Telephone Encounter - Candis Garces - 04/29/2024 8:23 AM EDT Received message from admin Anna Webb to cancel surgery and all appts as pt had services elsewhere [facility]06-04-2024 Miscellaneous Notes* Telephone Encounter - Candis Garces - 04/29/2024 8:23 AM EDT Received message from admin Anna Webb to cancel surgery and all appts as pt had services elsewhere documented in this encounterSelect [facility]05-[facility]-2024 Telephone encounter Note * Telephone Encounter - Anna De Leon - 04/25/2024 1:10 PM EDT 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 Please cancel surgery and all pre and post op appts. 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 Please cancel surgery and all pre and post op appts. documented in this encounterSelect Medical [facility]02-15-2024 History of Present illness Narrative* Nathan [...] nursing note reviewed. Exam conducted with a sugarcane planter present. Vitals: Estimated body mass index is [...] of: Nathan Kiesha, DO documented in this encounterLafayette Regional Health [id number] Miscellaneous Notes* Telephone Encounter - Pippa Simon [...] mg tablet Class: Normal Route: ORAL Order: [id number] E-Prescribing Status: Receipt confirmed by pharmacy (05/17/2023 [...] that may recur and often requires a snf treatment plan. Once endometriosis is identified, there [...] Hospital 06/23/2024 10:30 AM Charlene Rodriguez DO [facility] Appointment scheduled: As listed above Action taken: Refill request routed to clinician Pippa Simon RN January 03, 2024 4:29 PM * Telephone Encounter - Alena Tracy - 01/02/2024 3:52 PM EST Patient: Juhi Cope : 1995 Provider: Charlene Rodriguez DO Caller Phone #: [phone] (home) [phone] (cell) Reason for call: b/c refill Message routed to nurse triage Date of next visit: MEGAN: 12/10/2023 documented in this encounterSelect Medical [facility]01-15-2024 NoteHNO ID: [id number] Author: CHARLENE RODRIGUEZ DO Service: ? Author Type: Physician Type: Progress Notes Filed: 12/10/2023 15:14 Note Text: [facility] [place] SECTION FOR MINIMALLY INVASIVE GYNECOLOGIC SURGERY OUTPATIENT VISIT DATE 12/10/2023 OUTPATIENT VISIT TYPE Follow-up visit PRIMARY CARE PHYSICIAN: Denny Rodríguez [address] [place] [address] REFERRING PHYSICIAN: Self CHIEF COMPLAINT: No chief [...] MRI: no evidence of Past Gynecologic History: Store Person History LMP: 07/08/2023 (Exact Date), Having periods Age at Menarche: 14 Age at First : 27 Age at Menopause: Store Person History Comments: Sexual Activity: Never; No partner [...] presents today with pelvic (more content not included)...[facility]10-18-2023 Hospital Discharge instructions Patient Education 09/12/2023 18:18:13 [...] Follow these instructions at home: Medicines Take ryif-ewt-opsrqyq and prescription medicines only as told by [...] buy a blood pressure monitor at most [employer] or online. Where to find more information [place] [employer]: www.heart.org Contact a health care [...] provider. Document Revised: 07/27/2022 Document Reviewed: 07/27/2022 [employer] Patient Education 2022 [employer]. 09/12/2023 18:18:13 Hypertension, Adult, Vugq-iu-Nxmf Hypertension, Adult Hypertension is another name for [...] doctor. Keep all follow-up visits. Medicines Take wfgu-lbs-lxixiwv and prescription medicines only as told by [...] provider. Document Revised: 08/31/2022 Document Reviewed: 08/31/2022 [employer] Patient Education 2022 [employer]. 09/12/2023 18:18:13 General Headache Without Cause, Bagq-xt-Yxun General Headache Without Cause A headache is pain or discomfort you feel around the head or neck area. There are many causes and types of headaches. In some cases, the cause may not be found. Follow these instructions at home: Watch your condition for any changes. Let your doctor know about them. Take these steps to help with your condition: Managing pain Take vxww-gkl-wkllybh and prescription medicines only as told by [...] provider. Document Revised: 04/12/2022 Document Reviewed: 04/12/2022 [employer] Patient Education 2022 [employer]. Follow Up Care 09/12/2023 17:21:57 With:DENNY RODRÍGUEZ Address: [address] [place] [address] Business (1) When:09/15/2023 18:03:37 Comments:Follow-up with your primary care provider in 3 to 5 days. If symptoms worsen, do not improve, or new symptoms arise please report back to emergency department for further evaluation. [facility]10-18-2023 Evaluation + Plan noteExtracted from: [...] date 09/12/23 18:02:00 EDT, 09/12/23 18:02:00 EDT [facility]10-16-2023 Instructions* Patient Instructions* Jihan Downs APRN.CNP - 09/10/2023 9:52 AM EDT Plan: Trial baclofen suppositories - can switch to pill vaginally if suppositories are not affordable Consider Pelvic floor physical therapy - can find local provider [email or web address] Consider going back to see Dr Kuldip Downs APRN.CNP documented in this encounterSelect Medical [facility]10-05-2023 NoteHNO ID: [id number] Author: Charlene Rodriguez DO Service: ? Author Type: Physician Type: Progress Notes Filed: 08/30/2023 11:15 AM Note Text: Tramadol rx sent to pharmacy.[facility]10-05-2023 History of Present illness Narrative* Charlene Rodriguez DO - 08/30/2023 11:13 AM EDT Tramadol rx sent to pharmacy. documented in this encounterSelect Medical Trihealth Rehabilitation Hospital10-05-2023 Miscellaneous Notes* Telephone Encounter - Chelsie Dueñas RN - 08/30/2023 10:50 AM EDT Last office visit: 08/24/2023 Assessment and Plan No diagnosis found. Trial baclofen suppositories Will send list of PTs Consider going back to [place] SIGNATURE: Jihan Downs APRN.POTTER OR CERAMIC ARTIST Office visit with Dr. Rodriguez 07/16/2023 IMPRESSION: [...] plan. Charlene Rodriguez DO documented in this encounterSelect Medical [facility]health [facility] Hospital09-29-2023 NoteHNO ID: [id number] Author: Jihan Downs APRN.ANA LAURA Service: ? Author Type: Nurse Practitioner Type: Progress Notes Filed: 09/10/2023 9:53 AM Note Text: [facility] [place] Department of Benign Gynecology [facility] PATIENT NAME: Juhi Cope DATE: 08/24/2023 Patient Name and verified: Yes Patient Location: [place] This Virtual Visit was completed using My Chart Zoom platform. I have communicated my name and active licensure. The patient's identity and physical location were verified at the time of this visit. Either the patient or their legal service liaison representative has been informed of the risks [...] appointment yet. GI - constipation is improved [place] - hasn't tried due to pain and [...] physical therapy - or can go locally pelvicBiodesixabArachnys Trial flexeril at bedtime Can consider Baclofen suppositories Continue Norethindrone - can take up to 3 months for it to stop periods, take at same time every day Relaxation techniques Jihan Downs APRN.POTTER OR CERAMIC ARTIST OB History T0 L1 SAB0 IAB0 Ectopic0 Multiple0 Live Births0 Store Person History LMP: 07/08/2023 (Exact Date), Having periods Age at Menarche: 14 Age at First : 27 Age at Menopause: Store Person History Comments: Sexual Activity: Never; No partner [...] toxic appearing HEENT nor (more content not included)...[facility]09-29-2023 History of Present illness Narrative* Jihan Downs APRN.POTTER OR CERAMIC ARTIST - 08/24/2023 9:24 AM EDT Images from the original note were not included. [facility] [place] Department of Benign Gynecology [facility] PATIENT NAME: Juhi Cope DATE: 08/24/2023 Patient Name and verified: Yes Patient Location: [place] This Virtual Visit was completed using My Chart Zoom platform. I have communicated my name and active licensure. The patient's identity and physical location wereverified at the time of this visit. Either the patient or their legal service liaison representative has been informed of the risks [...] appointment yet. GI - constipation is improved [place] - hasn't tried due to pain and [...] physical therapy - or can go locally pelvicBiodesixabArachnys Trial flexeril at bedtime Can consider Baclofen suppositories Continue Norethindrone - can take up to 3 months for it to stop periods, take at same time every day Relaxation techniques Jihan Downs APRN.POTTER OR CERAMIC ARTIST OB History T0 L1 SAB0 IAB0 Ectopic0 Multiple0 Live Births0 Store Person History LMP: 07/08/2023 (Exact Date), Having periods Age at Menarche: 14 Age at First : 27 Age at Menopause: Store Person History Comments: Sexual Activity: Never; No partner [...] to see Dr Rodriguez SIGNATURE: Jihan Downs, JAMI.POTTER OR CERAMIC ARTIST Medical Decision Making: Problems: Low: Stable chronic illness Risk: Moderate: Drug management Medical Decision Making Level: 3 - Low documented in this encounterSelect Medical [facility]09-22-2023 Miscellaneous Notes* Telephone Encounter - Marilee [...] Provider: Charlene Rodriguez DO Caller Phone #: [phone] (home) [phone] (cell) Reason for call: pt calling regarding mc message., still in pain. Please call [phone] Message routed to nurse triage Date of next visit: documented in this encounterSelect Medical [facility]health [facility]09-07-2023 Miscellaneous Notes* Telephone Encounter - Candis Suárez RN - 08/02/2023 11:29 AM EDT PA for orilissa completed via Cover [employer]. Juhi Cope (Morales: [id number]) - [id number] Orilissa 150MG tablets Status: Sent To Plan [...] too. Please advise. Thanks. documented in this encounterSelect Medical Trihealth [facility] Hospital08-21-2023 NoteHNO ID: [id number] Author: Charlene Rodriguez DO Service: ? Author Type: Physician Type: Progress Notes Filed: 07/16/2023 12:41 PM Note Text: [facility] [place] SECTION FOR MINIMALLY INVASIVE GYNECOLOGIC SURGERY OUTPATIENT VISIT DATE 07/16/2023 OUTPATIENT VISIT TYPE Follow-up visit PRIMARY CARE PHYSICIAN: Denny Rodríguez [address] [place] [address] REFERRING PHYSICIAN: Denny Rodríguez CHIEF COMPLAINT: No [...] additional bowel lesions identified Past Gynecologic History: Store Person History LMP: 07/08/2023 (Exact Date), Having periods Age at Menarche: 14 Age at First : 27 Age at Menopause: Store Person History Comments: Sexual Activity: Never; No partner [...] Signs: 07/16/23 1115 BP: (more content not included)...[facility]07-18-[facility] History of Present illness Narrative* Boo Singh [...] 12, 2023 4:32 PM documented in this encounterSelect Medical [facility]health [facility] Hospital07-18-2023 NoteHNO ID: [id number] Author: Rosio Malcolm RT(R) Service: ? Author Type: Drafter Directional Survey Type: Progress Notes Filed: 06/12/2023 4:32 PM [...] BY: RT Claudia(Bryant) June 12, 2023 4:32 PMCMcKitrick Hospital07-18-2023 NoteHNO ID: [id number] Author: Boo Singh RN Service: Nursing Author [...] TIME: 1:43 [facility]06-22-2023 NoteHNO ID: [id number] Author: Charlene Rodriguez, DO Service: ? Author Type: Physician Type: Progress Notes Filed: 05/21/2023 10:15 AM Note Text: [facility] [place] SECTION FOR MINIMALLY INVASIVE GYNECOLOGIC SURGERY OUTPATIENT [...] to appointment last week Past Gynecologic History: Store Person History LMP: 04/22/2023 (Exact Date), Having periods Age at Menarche: 14 Age at First : 27 Age at Menopause: Store Person History Comments: Sexual Activity: Never; No partner [...] treatment plan. Charlene Rodriguez DO Tt: [facility] minutes[facility]06-[facility]-2023 History of Present illness Narrative* Charlene Rodriguez DO - 05/17/2023 1:05 PM EDT Images from the original note were not included. [facility] [place] SECTION FOR MINIMALLY INVASIVE GYNECOLOGIC SURGERY OUTPATIENT [...] to appointment last week Past Gynecologic History: Store Person History LMP: 04/22/2023 (Exact Date), Having periods Age at Menarche: 14 Age at First : 27 Age at Menopause: Store Person History Comments: Sexual Activity: Never; No partner [...] DO Tt: 20 minutes documented in this encounterSelect Medical Trihealth Rehabilitation Hospital06-16-2023 Miscellaneous Notes* Telephone Encounter - Candis Suárez RN - 05/11/2023 4:19 PM EDT Reports vaginal bleeding, using panty liners, changing a few times a day, not severe. Biggest complaint is cramping. Has had 3 periods of bleeding recently - 04/22/2023 LMP, last a few days, 05/04-05/10 bleeding again 05/11/2023 started again today. Takes aygestin 5mg daily. She did not picker / packer flexeril. Encourage to picker / packer the flexeril as this will help with the cramping. Reviewed red flag bleeding symptoms that require trip to ER (soaking greater than one overnight padper hour, chest pain, shortness of breath, fatigue, palpitations).. Advised keep appt. Gives verbal understanding. Appointments for Next 60 Days Date Time Provider Location Dept Phone 05/17/2023 1:00 PM CHARLENE RODRIGUEZ [facility] [phone] Candis Suárez RN * Telephone Encounter - Tawana Nair [facility] - 05/11/2023 1:19 PM EDT Reason for call: other - Vaginal bleeding Provider name: Dr Rodriguez Additional comments: patient having more vaginal bleeding and concerned she is getting worse. Recommendation: routed to nurse triage pool documented in this encounterSelect Medical Trihealth Rehabilitation Hospital06-06-2023 Instructions* Patient Instructions* Jhian Downs APRN.ANA LAURA - 05/01/2023 11:47 AM EDT Plan Pelvic floor physical therapy - or can go locally pelvicBiodesixabArachnys Trial flexeril at bedtime Can consider Baclofen [...] pelvic pain society ([email or web address].org) documented in this encounterSelect Medical Trihealth Rehabilitation Hospital06-06-2023 History of Present illness Narrative* Jihan Downs APRN.ANA LAURA - 05/01/2023 10:30 AM EDT Juhi Cope is a 28 year old female who presents for problem visit for pain HPI: Pain is week before period and week of period. Worse on her period for every day she's bleeding Urinary - No symptoms GI - Always constipated. No meds [place] - painful always Pain is on left [...] L0 SAB0 IAB0 Ectopic0 Multiple0 Live Births0 Store Person History LMP: 03/26/2023 (Approximate), Having periods Age at Menarche: Age at First : Age at Menopause: Store Person History Comments: Sexual Activity: Never; No partner [...] physical therapy - or can go locally Diasome Trial flexeril at bedtime Can consider Baclofen [...] Level: 4 - Moderate documented in this encounterSelect Medical [facility]health Rehabilitation Hospital06-06-2023 NoteHNO ID: [id number] Author: Jihan Downs APRN.CNP Service: ? Author Type: Nurse Practitioner Type: Progress Notes Filed: 05/09/2023 11:46 AM Note Text: Juhi Cope is a 28 year old female who presents for problem visit for pain HPI: Pain is week before period and week of period. Worse on her period for every day she's bleeding Urinary - No symptoms GI - Always constipated. No meds [place] - painful always Pain is on left [...] L0 SAB0 IAB0 Ectopic0 Multiple0 Live Births0 Store Person History LMP: 03/26/2023 (Approximate), Having periods Age at Menarche: Age at First : Age at Menopause: Store Person History Comments: Sexual Activity: Never; No partner [...] physical therapy - or can go locally Diasome Trial flexeril at bedtime Can consider Baclofen [...] management Medical Decision Making Level: 4 - [facility] Miscellaneous Notes* Telephone Encounter - Marilee Valdez [...] months. Lucila Foss RN documented in this encounterSelect Medical [facility]03-08-2023 Hospital Discharge instructions Patient Education 01/31/2023 [...] told by your health care provider. Take xlnx-kos-mimgrpg and prescription medicines only as told by [...] 01/03/2007 Document Revised: 10/25/2018 Document Reviewed: 01/25/2018 [employer] Patient Education 2020 [employer]. Follow Up Care 01/31/2023 13:43:01 With:Denny Meza Address:Unknown When:02/03/2023 18:59:31 Comments:Follow-up for evaluation of hypertension in context of known preeclampsia in the period With:DENNY RODRÍGUEZ [facility] [address] [address]- Business (1) When:Within 3 Day(s) [facility]03-08-2023 Evaluation + Plan noteExtracted from: Title:ED NoteAuthor:Mayur Mabry PA-C CDate:01/31/23 Flank pain (R10.9: Unspecifi ed abdominal pain) Headache (R51.9: Headache, unspecified) Orders: CTA Chest Hepatic Function Panel [facility]02-04-2023 Hospital Discharge instructions Patient Education 12/30/2022 13:59:51 SOFTWARE DEVELOPMENT ADVISOR - Post D&C, Hysteroscopy, LEEP or Essure/Laparoscopy [...] Instructions - FT (Custom) (Custom) 12/30/2022 13:55:16 SOFTWARE DEVELOPMENT ADVISOR - Post D&C, Hysteroscopy, LEEP or Essure/Laparoscopy [...] With:Denny Meza Address: [address], [place] [address] [place] [address]- Business (1) When: Unknown Comments:follow up in 1-2 weeks With:DENNY RODRÍGUEZ Address: [address] [place] [place] [address]- Business (1) When:01/02/2023 09:21:18 [facility]02-04-2023 Evaluation + Plan noteExtracted from: [...] from:Title:ANES Pre-operative NoteAuthor:Kenneth Agustin MDDate: 12/30/22 Plan [place] [employer] Anesthesiologists (ASA) physical status classification: [...] With Cult Reflex US Pelvis Non-OB Complete [facility]01-10-2023 History of Present illness Narrative* [...] Ross MD - 12/05/2022 3:19 PM EST [facility]: This patient was seen in the [facility] by the resident. I reviewed and agree with the care provided by the resident during or immediately following the visit including the patient's medical history, the resident's finding in the physical exam, patient's diagnosis and treatment plan. documented in this [facility]01-07-2023 NoteDepartment of Obstetrics and Gynecology Delivery Discharge Summary Admission on 11/28/2022 12:24 AM Hospital course: Juhi Cope at 35w1d admitted as a transfer from [facility] for [facility]. She was started on Magnesium [...] Information for the patient's : Francie Cope [[id number]] female 2425 g (5 lb 5.5 oz) Apgars: Information for the patient's : Francie Cope [[id number]] : Infant: Girl Blood Type/Rh: O Antibody [...] Your Medications These medications were sent to [facility] [address] [place], [place] [id number] Hours: Sunday to Sunday 10 am to [...] a blood pressure kit through [facility] (or the patient's own pharmacy on the weekend) [] Order the blood pressure log through [facility] [x] Place an office visit or telephone [...] notify her physician if any of these occur.[facility]01-07-[facility]23 History of Present illness Narrative* Anna [...] with more than 50% of the total xugk-li-xjjr time of the visit in counseling/coordination of [...] be monitored and followed by the diet printer repair technician. CRISS Oshea * Alejandra Arcos [...] and reassuring. CCM. Cx:/-3 FHT: Cat 1 [place]:q3-4 min A/P: 1. IOL-PreEwSF. FHT 130 baseline, with moderate variability, Accelerations present Yes, and rare late deceleration . Cervical exam unchanged. Cytotec x4 placed at this time. Patient intermittently feeling contractions. BP mild range. Cx: 1-/-3 FHP: defer FHT: Cat I [place]: a3-4min A/P: 1. IOL-PreEwSF: FHT Category I, [...] Cx: unchanged FHP: defer FHT: Cat I [place]: q4min A/P: 1. IOL-PreEwSF: FHT Category I, [...] 11/29/2022 6:17 AM Cx:1-2/60/-3 FHT: Cat I [place]:q4-5mins A/P: 1. IOL-PreEwSF: Cat I FHT with [...] per protocol. CCM. Cx:defer FHT: Cat I [place]:q4-6mins A/P: 1. IOL-PreEwSF: Cat I FHT with baseline 120, moderate variability, spontaneous accelerations, and no decelerations. BP normotensive to mild range since last note time. Pitocin @ 2 cc/hr, continue to titrate per protocol. Magnesium sulfate running for seizure prophylaxis, UOP 400 ml over past 4hours. CCM. Cx:defer FHT: Cat I [place]:q4-5mins A/P: 1. IOL-PreEwSF: Cat I FHT with baseline 135, moderate variability, spontaneous accelerations, and no decelerations. BP normotensive to mild range since last note time. Pitocin @ 6 cc/hr, continue to titrate per protocol. Magnesium sulfate running for seizure prophylaxis, UOP 600 ml over past 4hours. Will plan for AROM soon. CCM. Cx:defer FHT: Cat I [place]:irritability A/P: 1. IOL-PreEwSF: Pit @ 8 mu/min. Patient resting comfortably and only irritability tracing on toco. BP most recently mild range. On magnesium sulfate for seizure prophylaxis. UOP adequate. Continue magnesium and continue to titrate pitocin per protocol. Plan for AROM once patient rudi more regularly. Electronically signed by Cortney Velasquez DO 11/29/2022 4:21 PM Cx:470/-3 FHT: Cat 1 [place]:Not tracing A/P: 1. IOL-PreEwSF. FHT 135 baseline, with moderate variability, Accelerations present Yes, and nodecelerations seen . AROM at this time for moderate amount blood tinged fluid. Pitocin at 8cc/hr. Maternal BP mild range. On Magnesium for Seizure prophylaxis. Patient with adequate urinary output. CCM. Cx: defer FHP: defer FHT: Cat II [place]: not tracing well A/P: 1. IOL-PreEwSF: FHT [...] per RN FHP: defer FHT: Cat II [place]: q4min A/P: 1. IOL-PreEwSF: FHT Category II [...] delivery note for details documented in this [facility]01-07-2023 Hospital course Narrative* César Tran DO - 12/02/2022 12:32 PM EST Images from the original note were not included. Department of Obstetrics and Gynecology Delivery Discharge Summary Admission on 11/28/2022 12:24 AM Hospital course: Juhi Cope at 35w1d admitted [facility] a [facility] She was startedon Magnesium there and transported [...] Information for the patient's : Francie Cope [[id number]] female 2425 g (5 lb 5.5 oz) Apgars: Information for the patient's : Francie Cope [[id number]] : Infant: Girl Blood Type/Rh: O Antibody [...] Your Medications These medications were sent to [facility] [address] [place] [address] Hours: Sunday to Sunday 10 am to [...] a blood pressure kit through [facility] (or the patient's own pharmacy on the weekend) [] Order the blood pressure log through [facility] [x] Place an office visit or telephone [...] any of these occur. documented in this [facility]01-06-2023 Note* Care Coordination - Christine Michelle RN [...] home. Denies any concerns at this time. [id number] Note* Care Coordination - Christine Michelle RN [...] home. Denies any concerns at this time. [facility] [id number] Miscellaneous Notes* Care Coordination - Christine Michelle [...] indicated for this pt. Due to: in [facility] Hospital breast pump, supplies kit, swabs [...] patient to check with LC in [facility] for smaller flange sizes * L&D Delivery Note - Irina Kramer DO - 11/30/2022 4:04 AM EST Images from the original note were not included. Vaginal Delivery Note Department of Obstetrics and Gynecology Patient: Juhi Cope : 1995 Date of delivery: 11/30/2022 Pre-operative Diagnosis: Juhi Mojica0 at 35w1d 1. <37 weeks 2. PreEwSF Post-operative Diagnosis: Live Born female Delivering Green Building Materials Designer & Land Development Project Manager(s): Dr. Bowden; Dr. Kramer Information: Information for the patient's : Francie Cope [[id number]] Information for the patient's : Francie Cope [[id number]] Description: normal Meconium Noted: No Anesthesia: epidural [...] change. Clotilde Mg RN documented in this [facility]01-06-2023 Obstetrics Note* Note - Ligia Bridges RN - 12/01/2022 9:00 AM EST 22.5mm flanges given to patient. Encouraged her to call for observation of pump session and smallerflanges. Martha in NICU to assist with personal pump. [facility] [id number] Hospital Discharge instructions* Discharge Instructions* Carol Bowden [...] 8 weeks after delivery. Bleeding may picker / packer and then decrease again around 7-10 [...] avoid constipation you may take a mild utne-oot-awnpevi stool softener (such as colace) as recommended [...] positive or a Person Under Investigation (PUI) Avntvh-my-btgpe transmission of COVID-19 during is unlikely, but after a baby is susceptible to pwqpxp-xh-jajmad spread. After your baby is born, your [...] clean your hands with an alcohol-based hand supervisor bleach plant that contains at least 60% alcohol. Clean your hands often Wash your hands often with soap and water for at least 20 seconds, especially after blowing your nose, coughing, or sneezing; going to the bathroom; and before eating or preparing food. If soap and water are not readily available, use an alcohol-based hand supervisor bleach plant with at least 60% alcohol, covering all [...] healthcare provider to call the local or [facility] health department. Persons who are placed [...] isolation precautions should be made on a ybqu-dq-rikf basis, in consultation with healthcare providers and [...] tract signs and symptoms. Ways to [place] with Anxiety & Stress It is normal [...] seen in people before. This virus spreads sdekmt-yh-ivhnka through droplets from coughing and sneezing. It [...] water aren't available, use an alcohol-based hand supervisor bleach plant. Call 911 anytime you think you may [...] of: February 25, 2020 Content Version: 12.4 Meridium. Care instructions adapted under license by your [...] handles, desks, toilets, faucets, sinks) with household utility mechanic and EPA-registered disinfectants that are appropriate [...] appropriate. These supplies include tissues, paper towels, utility mechanic and EPA-registered disinfectants (see list link at [facility] website). If a separate [...] be used for other purposes. Consult the guest services lead's instructions for cleaning and disinfection products used. [...] used if appropriate for the surface. Follow guest services lead's instructions for application and proper ventilation. Check [...] for harder to kill viruses. Follow the guest services lead's instructions for all cleaning and disinfection products (e.g., concentration, application method and contact time, etc.). Soft (porous) surfaces such as carpeted floor, rugs, and drapes Remove visible contamination if present and clean with appropriate utility mechanic indicated for use on these surfaces. After cleaning: Launder items as appropriate in accordance with the guest services lead's instructions. If possible, launder items using the [...] items as appropriate in accordance with the guest services lead's instructions. If possible, launder items using the warmest appropriate water setting for the items and dry items completely. Dirty laundry from an ill person can be washed with other people's items. Clean and disinfect clothes hampers according to guidance above for surfaces. If possible, considerplacing a real time analyst that is either disposable (can be thrown away) or can be laundered. [facility] has a list of EPA approved cleaning products on their website - https://www.cdc.gov/coronavirus/ 2019-ncov/community/home/cleaning-disinfection.html https://www.Defend Your Head/Slqmu-Vmbyqyoigli-Kbpuwzzb-Products-List.pdf [employer] with delivery and picker / packer services: [employer]: Free picker / packer at locations Delivery is $12.95 a month Website - [employer]: Online Marketing Manager $2.95 (1st order is free) Delivery is $14.95 Website - [employer] Young: tie up worker is free Delivery is $5.95 Website [employer]: tie up worker is $4.95 Delivery is $9.95 Website [employer]: tie up worker is $4.95 Delivery is $9.95 Website [employer]: Can be ordered for delivery and picker / packer with [employer] Website - www.[employer]: Free deliver for first 3 orders of $35 or more Website - [employer] Will deliver from [employer], [employer], [employer], and [employer]. Annual membership is $99 Monthly membership is $14 * Attachments The following attachments cannot be sent through Care Everywhere. * Preeclampsia Discharge Instructions (Vincentian) documented in this [facility]01-05-2023 Obstetrics Note* Note - Sheila Harrell RN - 11/30/2022 10:37 AM EST Swabs given to patient and educated how to use and to bring to [facility] [id number] Obstetrics Note* Note - Sheila Harrell RN - 11/30/2022 10:30 AM EST Breast pump use indicated for this pt. Due to: in [facility] Hospital breast pump, supplies kit, swabs [...] Told patient to check with in [facility] for smaller flange sizes [facility] [id number] NotePatient: Juhi Cope Procedure Summary Date: 11/29/22 [...] discharged once all PACU criteria has been met.[facility]01-05[facility] NotePatient: Juhi Cope Procedure Summary Date: [...] Allowed opportunity for questions and acknowledgement of understanding.[facility]01-05-2023 Labor and delivery summary note* L&D Delivery Note - Irina Kramer DO - 11/30/2022 4:04 AM EST Images from the original note were not included. Vaginal Delivery Note Department of Obstetrics and Gynecology Patient: Juhi Cope : 1995 Date of delivery: 11/30/2022 Pre-operative Diagnosis: Juhi Sidhu at 35w1d 1. <37 weeks 2. PreEwSF Post-operative Diagnosis: Live Born female Delivering Green Building Materials Designer & Land Development Project Manager(s): Dr. Bowden; Dr. Kramer Information: Information for the patient's : Francie Cope [[id number]] Information for the patient's : Francie Cope [[id number]] Description: normal Meconium Noted: No Anesthesia: epidural [...] surgery as described in the resident note. [facility] [id number] NoteEpidural Block Time Out: 11/29/2022 6:17 PM Patient location during procedure: OB Start time: 11/29/2022 6:18 PM End time: 11/29/2022 6:45 PM Reason for block: labor analgesia Staffing Performed: POTASH FLAKER Resident/POTASH FLAKER: Jimmie Kaur APRN - POTASH FLAKER Preanesthetic Checklist Completed: patient identified, IV checked, [...] patient tolerated procedure well with no immediate complications[facility]-04-[facility]23 Plan of care note* Care Plan - Clotilde Mg RN - 11/29/2022 7:45 AM EST The patient will continue to make cervical change. Clotilde Mg RN [facility] [id number] NotePatient: Juhi Cope Procedure Information Date: 11/28/22 [...] products. patient is not NPO Additional Equipment RequestsBr[facility]View Hospital01-03-2023 NoteLabor Progress Note Date: 11/28/2022 Time: [...] and reassuring. CCM. Cx:-3 FHT: Cat 1 [place]:q3-4 min A/P: 1. IOL-PreEwSF. FHT 130 baseline, with moderate variability, Accelerations present Yes, and rare late deceleration . Cervical exam unchanged. Cytotec x4 placed at this time. Patient intermittently feeling contractions. BP mild range. Cx: 1--3 FHP: defer FHT: Cat I [place]: a3-4min A/P: 1. IOL-PreEwSF: FHT Category I, [...] Cx: unchanged FHP: defer FHT: Cat I [place]: q4min A/P: 1. IOL-PreEwSF: FHT Category I, [...] 11/29/2022 6:17 AM Cx:1-2/60/-3 FHT: Cat I [place]:q4-5mins A/P: 1. IOL-PreEwSF: Cat I FHT with [...] per protocol. CCM. Cx:defer FHT: Cat I [place]:q4-6mins A/P: 1. IOL-PreEwSF: Cat I FHT with baseline 120, moderate variability, spontaneous accelerations, and no decelerations. BP normotensive to mild range since last note time. Pitocin @ 2 cc/hr, continue to titrate per protocol. Magnesium sulfate running for seizure prophylaxis, UOP 400 ml over past 4 hours. CCM. Cx:defer FHT: Cat I [place]:q4-5mins A/P: 1. IOL-PreEwSF: Cat I FHT with baseline 135, moderate variability, spontaneous accelerations, and no decelerations. BP normotensive to mild range since last note time. Pitocin @ 6 cc/hr, continue to titrate per protocol. Magnesium sulfate running for seizure prophylaxis, UOP 600 ml over past 4 hours. Will plan for AROM soon. CCM. Cx:defer FHT: Cat I [place]:irritability A/P: 1. IOL-PreEwSF: Pit @ 8 mu/min. Patient resting comfortably and only irritability tracing on toco. BP most recently mild range. On magnesium sulfate for seizure prophylaxis. UOP adequate. Continue magnesium and continue to titrate pitocin per protocol. Plan for AROM once patient rudi more regularly. Electronically signed by Cortney Velasquez DO 11/29/2022 4:21 PM Cx:/-3 FHT: Cat 1 [place]:Not tracing A/P: 1. IOL-PreEwSF. FHT 135 baseline, with moderate variability, Accelerations present Yes, and no decelerations seen . AROM at this time for moderate amount blood tinged fluid. Pitocin at 8cc/hr. Maternal BP mild range. On Magnesium for Seizure prophylaxis. Patient with adequate urinary output. CCM. Cx: defer FHP: defer FHT: Cat II [place]: not tracing well A/P: 1. IOL-PreEwSF: FHT Category II for brief period of lates vs early deceleration (more content not included)...[facility]01-03-2023 NoteObstetrical History and Physical CHIEF COMPLAINT: [...] 34w6d Is this patient being delivered between 86d1a-71x8p weeks with an acceptable medical indication (obstetric, maternal, and/or )? NA: Not Applicable: This patient is being delivered outside of the PC-01 range (40s6v-34y0x) for reasons indicated in the medical record. [...] VTE Prophylaxis: Not Indicated (more content not included)...[facility]01-03-2023 History and physical note* Cassie Constantino [...] 34w6d Is this patient being delivered between 52w8y-03i8p weeks with an acceptable medical indication (obstetric, maternal, and/or )? NA: Not Applicable: This patient is being delivered outside of the PC-01 range (66x2v-06g2m) for reasons indicated in the medical record. [...] plan. Cassie Constantino MD 11/28/2022, 12:48 AM [facility] [id number] History and physical note* Cassie Constantino MD [...] 34w6d Is this patient being delivered between 63m2x-87r3k weeks with an acceptable medical indication (obstetric, maternal, and/or )? NA: Not Applicable: This patient is being delivered outside of the PC-01 range (86d5c-08l3d) for reasons indicated in the medical record. [...] MD 11/28/2022, 12:48 AM documented in this [facility]01-02-2023 Evaluation + Plan note Extracted from:Title:OB High Risk Antepartum Visit *Author:Fredi DORSEY MD Date:11/27/22 Impression and Plan Diagnosis 34 weeks 5 days. Preeclampsia. contractions. Maternal tachycardia.. Course: Worsening, New onset headache may be a signal of worsening symptoms of preeclampsia.. Orders I discussed this case with the maternal- medicine department at [facility] in [facility], Dr. Thea Nieves, she accepted to transfer due to preeclampsia. Plan: Magnesium sulfate per protocol, betamethasone, transfer arrangements are in progress..[facility]08-19-2022 Evaluation + Plan note Extracted [...] Colace and Proctofoam and follow-up with her SOFTWARE DEVELOPMENT ADVISOR physician in the outpatient setting. She is provided with a note for work. Additional diagnosis: Constipation, UTI and [facility]08-19-2022 Hospital Discharge instructions Follow Up Care 07/14/2022 06:07:36 With:Denny Meza Address:Unknown When:07/17/2022 07:24:48 With:DENNY RODRÍGUEZ Address: [address] [place] [place] [address] Business (1) When:Within 3 Day(s) [facility]08-19-2022 Hospital Discharge instructions Follow Up Care 07/14/2022 04:40:16 With:Denny Meza Address: [address], [address] [place] [address]- Business (1) When:07/17/2022 Comments:Appointment has already been scheduledCall Dr if fever>100.5 F, heavy bleedingCall for any problems.Call for severe abdominal painCall physician for heavy vaginal bleedingCall physician if symptoms worsenPlease call if you need to rescheduleReturn for contractions closer, longer, harderReturn ifruptured membranes or vaginal bleeding [facility]05-31-2022 Evaluation + Plan note Diagnostic Tests Pending * Cmluh-0-Ymjxgppojll 04/25/22 * NIGEL w/Reflex if POS 04/25/22 * Ceruloplasmin 04/25/22 * HCV Antibody RFX to Quant PCR 04/25/22 * HBV Core Ab 04/25/22 * Hepatitis B Surface Antibody 04/25/22 * Hepatitis B Surface Antigen 04/25/22 * Smooth Muscle Antibody Screen 04/25/22 [facility]05-24-2022 Evaluation note* Encounter Date Diagnosis Assessment Notes Treatment Notes Treatment Clinical Notes March, Elevated liver function tests (I CD-10 - R79.89) LABS INDICATED ABOVE CHARGED.fm Other Evaluation note* Diagnosis Pelvic pain in female- Primary Unspecified symptom associated with female genital organs [facility]* Diagnosis Chronic pelvic pain in female- Primary Unspecified symptom associated with female genital organs Constipation, unspecified constipation type High-tone pelvic floor dysfunction Other specified disorders of female genital organs Diastasis of rectus abdominis Dysmenorrhea Other specified dyspareunia documented [facility]* Diagnosis Endometriosis- Primary Endometriosis, site unspecified Pelvic and perineal pain Unspecified symptom associated with female genital organs [facility]* Diagnosis Pelvic pain in female- Primary Unspecified symptom associated with female genital organs [facility]* Diagnosis Pelvic pain in female- Primary Unspecified symptom associated with female genital organs documented in this encounter [facility] note* Diagnosis High-tone pelvic floor dysfunction- Primary Other specified disorders of female genital organs Chronic pelvic pain in female Unspecified symptom associated with female genital organs documented in this encounter [facility] note* Diagnosis Pelvic and perineal pain Unspecified symptom associated with female genital organs documented in this encounter [facility] note* Diagnosis Menorrhagia with regular cycle Pelvic pain in female Unspecified symptom associated with female genital organs Uses control [facility] Diagnosis Preeclampsia, severe, third trimester- Primary Preeclampsia, severe, third trimester documented [facility]* Diagnosis Pre-eclampsia, severe, delivered- Primary documented in this [facility]* Diagnosis Dysmenorrhea, unspecified documented in this encounter [facility]* Diagnosis Well woman exam with routine gynecological exam Routine gynecological examination [facility]* Diagnosis Hypertension, unspecified type (CMS/HCC)- Primary Paroxysmal tachycardia, unspecified (CMS/HCC) Paroxysmal tachycardia, unspecified Chronic right shoulder pain Pain in joint, shoulder region Scapular dyskinesis Lack of coordination [facility]* Diagnosis Pain in female genitalia on intercourse Dyspareunia Endometriosis Endometriosis, site unspecified documented in this encounter [facility] HealthcareEvaluation noteNo assessment information availableAccess [facility] [place] Work Phone: Evaluation note* Diagnosis Missed menses , unspecified gestational age Encounter for supervision of normal first in first trimester [facility]* Diagnosis Nonintractable episodic headache, unspecified headache type- Primary Second trimester ([facility]) state, incidental 13 weeks gestation of ([facility]) documented [facility]* Diagnosis Sinusitis, unspecified chronicity, unspecified location- Primary Second trimester ([facility]) state, incidental 17 weeks gestation of ([facility]) Screening, , for anatomic survey ([facility]) Encounter for anatomic survey documented [facility]* Diagnosis 20 weeks gestation of ([facility]) Second trimester ([facility]) state, incidental Diabetes mellitus screening Screening for diabetes mellitus documented [facility]* Diagnosis Wellness examination- Primary Hypertension, unspecified type Lipid screening Screening for lipoid disorders [facility]* Diagnosis Wellness examination- Primary Hypertension, unspecified type Lipid screening Screening for lipoid disorders 24 weeks gestation of ([facility]) Second trimester ([facility]) state, incidental Elevated glucose tolerance test Impaired glucose tolerance test documented [facility]* Diagnosis Gestational diabetes mellitus (GDM) in second trimester, gestational diabetes method of control unspecified [facility] Diagnosis Wellness examination- Primary Hypertension, unspecified type Lipid screening Screening for lipoid disorders 26 weeks gestation of ([facility]) Second trimester ([facility]) state, incidental induced hypertension, antepartum ([facility]) Transient hypertension of , antepartum Gestational diabetes mellitus (GDM) in second trimester, gestational diabetes method of control unspecified ([facility]) documented [facility]* Diagnosis Wellness examination- Primary Hypertension, unspecified type Lipid screening Screening for lipoid disorders Hypertension affecting , antepartum ([facility])- Primary 27 weeks gestation of ([facility]) Second trimester ([facility]) state, incidental documented [facility]* Diagnosis Diet controlled gestational diabetes mellitus (GDM) in second trimester- Primary Essential hypertension affecting in third trimester [facility] Diagnosis 28 weeks gestation of - Primary Insulin controlled gestational diabetes mellitus (GDM) in second trimester Essential hypertension affecting in third trimester [facility]* Diagnosis Essential hypertension affecting in third trimester [facility]* Diagnosis Wellness examination- Primary Hypertension, unspecified type Lipid screening Screening for lipoid disorders 29 weeks gestation of ([facility]) Third trimester ([facility]) state, incidental Hypertension affecting , antepartum ([facility]) Gestational diabetes mellitus (GDM), antepartum, gestational diabetes method of control unspecified([facility]) documented in this encounter [facility] note* Diagnosis Insulin controlled gestational diabetes mellitus (GDM) in third trimester- Primary Essential hypertension affecting in third trimester documented in this encounter [facility]* Diagnosis Insulin controlled gestational diabetes mellitus (GDM) in second trimester documented in this encounter [facility]* Diagnosis Insulin controlled gestational diabetes mellitus (GDM) in second trimester documented in this encounter [facility]* Diagnosis Wellness examination- Primary Hypertension, unspecified type Lipid screening Screening for lipoid disorders Third trimester ([facility]) state, incidental 31 weeks gestation of ([facility]) Pre-eclampsia in third trimester ([facility]) documented in this encounter [facility]* Diagnosis Insulin controlled gestational diabetes mellitus (GDM) in third trimester- Primary Essential hypertension affecting in third trimester documented in this encounter [facility] SystemHistory general Narrative - Reported* Type Description Date Medical History headache Surgical HistoryappendectomySurgical Historyshoulder surgerySurgical History endometriosis Distill Other History of Present illness Narrative* 26 [...] engaged x 1 year * working at [employer] in [place] [id number] Work Phone: Hospital course Narrative No data available for this section [facility] No data available for this section [facility]Not on filedocumented in this encounter [facility]Not on filedocumented in this encounter [facility] System[facility]ructionsNot on filedocumented in this encounter [facility] SystemInstructionsNot on filedocumented in this encounter [facility] System[facility]* Attachments The following attachments cannot be sent through Care Everywhere. * Preeclampsia (Vincentian) [facility] SystemInstructionsNot on file documented in this encounterProMedica Health SystemInstructionsNot on file documented in this encounterProMedica Health SystemInstructionsNot on file documented in this encounterProMedica Health SystemInstructionsNot on file documented in this encounterProMedica Health SystemProgress note No data available for this section [facility] CenterReason for visit NarrativePT HERE AT REQUEST OF DR RODRÍGUEZ FOR EVALUATION AND TREATMENT OF ELVATED LIVER FUNCTION- ( DR. SAMUEL PT), LABS FROM DR RODRÍGUEZ REVIEWED BY DR Iraheta [employer] Other Summary Purpose Family History Unknown Family [...] Bilateral ureterolysis Surgeon: Dr. Charlene Rodriguez Resident/Fellow/Other Land Development Project Manager: Glory Palacio Anesthesia: general I.V. Fluids: [...] to discuss pain related to endometriosis, declined sugarcane planter. 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 Reason for Referral SpecialtyDiagnoses / ProceduresReferred By ContactReferred To ContactMR IMAGING Diagnoses Pelvic and perineal pain Procedures MRI FEMALE PELVIS WO/W IVCON MRI PELVIS W/O & W/CONTRAST MATERIAL Charlene Rodriguez DO [address] [facility] [address] [place] [address] Mr Imaging Referral IDStatusReasonGrovertown DateExpiration DateVisits RequestedVisits [id number] Auto-Generated Referral /[id number] / ProceduresReferred By ContactReferred To [facility] Diagnoses Constipation, unspecified constipation type High-tone pelvic floor dysfunction Diastasis of rectus abdominis Dysmenorrhea Other specified dyspareunia Chronic pelvic pain in female Procedures CONSULT TO PHYSICAL THERAPY PHYSICAL THERAPY EVALUATION HIGH COMPLEX 45 MINS Jihan Downs, WEB UI DESIGNER.POTTER OR CERAMIC ARTIST [address] [facility] [address] [place] [address] [facility] [place] [address] [place] [id number] Referral IDStatLulacaterina DateExpiration DateVisits RequestedVisits [id number] Auto-Generated Referral / Chief Complaint and Reason for Visit Chief Complaint Admit Date N94.10 N80.9 February 02, 2025 3:1 6pm Additional Source Comments INFORMATION SOURCE (unrecogn ized section and content) DATE CREATED AUTHOR 10/26/2020 [facility] DATE CREATED AUTHOR AUTHOR'S ORGANIZ ATION 11/06/2020 [facility] DATE CREATED AUTHOR AUTHOR'S ORGANIZ ATION 12/17/[address] [facility] DATE CREATED AUTHOR AUTHOR'S ORGANIZ ATION 04/21/2021 [facility] DATE CREATED AUTHOR AUTHOR'S ORGANIZ ATION 06/05/2021 [facility] DATE CREATED AUTHOR AUTHOR'S ORGANIZ ATION 10/02/2021 [facility] DATE CREATED AUTHOR AUTHOR'S ORGANIZ ATION 02/10/2022 [facility] DATE CREATED AUTHOR AUTHOR'S ORGANIZ ATION 12/05/2022 [facility] DATE CREATED AUTHOR AUTHOR'S ORGANIZ ATION 04/30/2024 [facility] DATE CREATED AUTHOR AUTHOR'S ORGANIZ ATION 02/09/2025 [facility] DATE CREATED AUTHOR AUTHOR'S ORGANIZ ATION 03/15/2025 [facility] DATE CREATED AUTHOR AUTHOR'S ORGANIZ ATION 08/03/2025 [facility] DATE CREATED AUTHOR AUTHOR'S ORGANIZ ATION 08/13/2025 [facility] DATE CREATED AUTHOR AUTHOR'S ORGANIZ ATION 08/16/2025 [facility] DATE CREATED AUTHOR AUTHOR'S ORGANIZ ATION 08/20/2025 [facility] DATE CREATED AUTHOR AUTHOR'S ORGANIZ ATION 08/21/2025 [facility] DATE CREATED AUTHOR AUTHOR'S ORGANIZ ATION 08/29/2025 [facility] DATE CREATED AUTHOR AUTHOR'S ORGANIZ ATION 09/12/2025 [facility] DATE CREATED AUTHOR AUTHOR'S ORGANIZ ATION 10/02/2025 [facility] EP[facility] DATE CREATED AUTHOR AUTHOR'S ORGANIZ ATION 10/08/2025 [facility] Care Team (unrecognized sect ion and content) Team MemberRelationshipSpecialtyStart DateEnd Date Denny Rodríguez MD [address] [place] [address] PCP - GeneralFamily Medicine12/03/14Team MemberRelationshipSpecialtyStart DateEnd Date Denny Rodríguez MD [address] [place] [address] PCP - GeneralFamily Medicine12/03/14Team MemberRelationshipSpecialtyStart DateEnd Date Denny Rodríguez MD [address] [place] [address] PCP - GeneralFamily Medicine12/03/14Team MemberRelationshipSpecialtyStart DateEnd Date Denyn Rodríguez MD [address] [place] [address] PCP - GeneralFamily Medicine12/03/14Team MemberRelationshipSpecialtyStart DateEnd Date Denny Rodríguez MD [address] [place] [address] PCP - GeneralFamily Medicine12/03/14Team MemberRelationshipSpecialtyStart DateEnd Date Denny Rodríguez MD [address] [place] [address] PCP - GeneralFamily Medicine12/03/14Team MemberRelationshipSpecialtyStart DateEnd Date Denny Rodríguez MD [address] [place] [address] PCP - GeneralFamily Medicine12/03/14Team MemberRelationshipSpecialtyStart DateEnd Date Denny Rodríguez MD [address] [place] [address] PCP - GeneralFamily Medicine12/03/14Team MemberRelationshipSpecialtyStart DateEnd Date Denny Rodríguez MD [address] [place] [address] PCP - GeneralFamily Medicine12/03/14Team MemberRelationshipSpecialtyStart DateEnd Date Denny Rodríguez MD [address] [place] [address] [facility] - [facility]12/03/14Team MemberRelationshipSpecialtyStart DateEnd Date Denny Rodríguez MD [address] [place] [address] PCP - [place] Sbqyprsetq91/1/21 Denny Rodríguez MD [address] [place] [address] PCP - GeneralFaorly Medicine04/10/23 Denny Rodríguez MD [address] [place] [address] PCP - [facility]02/24/23 Zenobia [place] NP [address] [place] [address] Nurse [facility]10/05/23 Trista Thao NP [address] [place] [address] Nurse PractitionerPulmonary Tjigqqc45/10/23Team MemberRelationshipSpecialtyStart DateEnd Date Denny Rodríguez MD [address] [place] [address] PCP - GeneralFamily Medicine12/03/14Team MemberRelationshipSpecialtyStart DateEnd Date Denny Rodríguez MD [address] [place] [address] PCP - [facility]12/03/14Team MemberRelationshipSpecialtyStart DateEnd Date Denny Rodríguez MD [address] [place] [id number] PCP - [place] Kfqtlvokju03/1/21 Denny Rodríguez MD [address] [place] [facility] PCP - [facility]02/24/23 Eliceo Beltran DO [address] [place] [address] PCP - Generalmily Medicine02/14/24Team MemberRelationshipSpecialtyStart DateEnd Date Denny Rodríguez MD [address] [place] [address] PCP - [place] Imnkpdgtib75/1/21 Denny Rodríguez MD [address] [place] [address] PCP - [facility]02/24/23 Eliceo Beltran DO [address] [place] [address] PCP - [facility] Medicine02/14/24Team MemberRelationshipSpecialtyStart DateEnd Date Denny Rodríguez MD [address] [place] [address] PCP - [place] Scltvhruur58/1/21 Denny Rodríguez MD [address] [place] [address] PCP - [facility]02/24/23 Eliceo Beltran DO [address] [place] [address] PCP - [facility]02/14/24Team MemberRelationshipSpecialtyStart DateEnd Date Denny Rodríguez MD [address] [place] [address] PCP - [place] Rvjqvexlzb96/1/21 Denny Rodríguez MD [address] [place] [address] PCP - [facility]02/24/23 Eliceo Beltran DO [address] [place] [address] PCP - [facility]02/14/24Team MemberRelationshipSpecialtyStart DateEnd Date Denny Rodríguez MD [address] [place] [address] PCP - [place] Tvwfqqlkxu92/1/21 Denny Rodríguez MD [address] [place] [address] PCP - [facility]02/24/23 Eliceo Beltran DO [address] [place] [address] PCP - GeneralFamily Medicine02/14/24Team MemberRelationshipSpecialtyStart DateEnd Date Denny Rodríguez MD [address] [place] [address] PCP - [place] Acsaybkrqi16/1/21 Eliceo Beltran DO [address] [place] [address] PCP - Generalmily Medicine02/14/24Team MemberRelationshipSpecialtyStart DateEnd Date Eliceo Beltran DO [address] [place] [address] PCP - GeneralFamily Medicine02/14/24Team MemberRelationshipSpecialtyStart DateEnd Date Eliceo Beltran DO [address] [place] [address] PCP - Generalmily Medicine02/14/24 Team Status: Active [...] [address] [place] [address] PCP - [facility] Medicine02/14/24 Eliceo Beltran DO [address] [place] [address] PCP - Medical [place] [employer]07/27/2412Team MemberRelationshipSpecialty Start DateEnd Date Eliceo Beltran DO [address] [place] [address] PCP - [facility] Medicine02/14/24 Eliceo Beltran DO [address] [place] [address] PCP - Medical [place] [employer]07/27/2412Team MemberRelationshipSpecialty Start DateEnd Date Eliceo Beltran DO [address] [place] [address] PCP - [facility] Medicine02/14/24 Eliceo Beltran DO [address] [place] [address] PCP - Medical [place] [employer]07/27/2412Team MemberRelationshipSpecialty Start DateEnd Date Eliceo Beltran DO [address] [place] [address] PCP - [facility] Medicine02/14/24 Eliceo Beltran DO [address] [place] [address] PCP - [facility] [place] [employer]07/27/2412Te MemberRelationshipSpecialty Start DateEnd Date Eliceo Beltran, DO [address] [place] [address] PCP - [facility] Medicine02/14/24 Eliceo Beltran, DO [address] [place] [address] PCP - Medical [place] [facility]07/27/2412Team MemberRelationshipSpecialty Start DateEnd Date Eliceo Beltran, DO [address] [place] [address] PCP - [facility] Medicine02/14/24 Eliceo Beltran, DO [address] [place] [address] PCP - [facility] [place] [employer]07/27/2412Team MemberRelationshipSpecialty Start DateEnd Date Eliceo Beltran, DO [address] [place] [address] PCP - [facility] Medicine02/14/24 Eliceo Beltran, DO [address] [place] [address] PCP - [facility] [place] [facility]07/27/2412Te MemberRelationshipSpecialty Start DateEnd Date Eliceo Beltran, DO [address] [place] [address] PCP - Generalmily Medicine02/14/24 Eliceo Beltran, [address] [place] [address] PCP - Medical [place] [employer]07/27/2412Team MemberRelationshipSpecialty Start DateEnd Date Eliceo Beltran DO [address] [place] [address] PCP - [facility] Medicine02/14/24 Eliceo Beltran, [address] [place] [address] PCP - [facility] [place] [facility]07/27/2412Team MemberRelationshipSpecialty Start DateEnd Date Eliceo Beltran DO [address] [place] [address] PCP - [facility] Medicine02/14/24 Eliceo Beltran DO [address] [place] [address] PCP - [facility] [place] [facility]07/27/2412Team MemberRelationshipSpecialty Start DateEnd Date Eliceo Beltran DO [address] [place] [address] PCP - [facility] Medicine02/14/24 Eliceo Beltran DO [address] [place] [address] PCP - [facility] [place] [facility]07/27/2412Team MemberRelationshipSpecialty Start DateEnd Date Denny Rodríguez MD [address] [place] [address] PCP - [facility] Medicine12/02/18 MemberRelationshipSpecialtyStart DateEnd Date Denny Rodríguez MD [address] [place] [address] PCP - [facility] Medicine12/02/18 MemberRelationshipSpecialtyStart DateEnd Date Eliceo Beltran, DO [address] [place] [address] PCP - [facility]02/14/24 Eliceo Beltran, DO [address] [place] [address] PCP - [facility] [place] [facility]07/27/2412Te MemberRelationshipSpecialty Start DateEnd Date Eliceo Beltran, DO [address] [place] [address] PCP - [facility]02/14/24 Eliceo Beltran, DO [address] [place] [address] PCP - [facility] [place] [employer]07/27/2412Te MemberRelationshipSpecialty Start DateEnd Date Eliceo Beltran, DO [address] [place] [address] [address] - [facility]02/14/24 Eliceo Beltran, DO [address] [place] [address] PCP - [facility] [place] [facility]07/27/2412Team MemberRelationshipSpecialty Start DateEnd Date Eliceo Beltran DO [address] [place] [address] PCP - GeneralFamily Medicine02/14/24 Eliceo Beltran DO [address] [place] [address] PCP - [facility] [place] [employer]07/27/2412Team MemberRelationshipSpecialty Start DateEnd Date Denny Rodríguez MD [address] [place] [address] PCP - GeneralFamily Medicine12/02/18Team MemberRelationshipSpecialtyStart DateEnd Date Eliceo Beltran DO [address] [place] [address] PCP - GeneralFamily Medicine02/14/24 Eliceo Beltran DO [address] [place] [address] PCP - [facility] [place] [employer]07/27/2412Team MemberRelationshipSpecialty Start DateEnd Date Eliceo Beltran DO [address] [place] [address] PCP - GeneralFamily Medicine02/14/24 Eliceo Beltran DO [address] [place] [address] PCP - [facility] [place] [facility]07/27/2412Team MemberRelationshipSpecialty Start DateEnd Date Denny Rodríguez MD [address] [place] [address] PCP - Generalmily Medicine12/02/18Team MemberRelationshipSpecialtyStart DateEnd Date Denny Rodríguez MD [address] [place] [address] [facility]12/02/18Team MemberRelationshipSpecialtyStart DateEnd Date Eliceo Beltran DO [address] [place] [address] [facility]/14/24 Eliceo Beltran DO [address] [place] [address] PCP - [facility] [place] [employer]07/27/2412Team MemberRelationshipSpecialty Start DateEnd Date Eliceo Beltran DO [address] [place] [address] PCP - [facility] Medicine02/14/24 Eliceo Beltran DO [address] [place] [address] PCP - [facility] [place] [employer]07/27/2412Team MemberRelationshipSpecialty Start DateEnd Date Denny Rodríguez MD [address] [place] [address] [facility] - [facility]12/02/18Team MemberRelationshipSpecialtyStart DateEnd Date Denny Rodríguez MD [address] [place] [address] PCP - GeneralFamily Medicine12/02/18Team MemberRelationshipSpecialtyStjackson DateEnd Date Denny Rodríguez MD [address] [place] [address] PCP - [place] Egnylxbghi29/1/ Denny Rodríguez MD [address] [place] [address] PCP - GeneralFamily Medicine Denny Rodríguez MD [address] [place] [address] PCP - [facility] Eliceo Beltran DO [address] [place] [address] [facility] - [facility]02/14/24 Eliceo Beltran DO [address] [place] [address] PCP - [facility] [place] [facility]07/27/2412 [facility] NP [address] [place] [address] Nurse PractitionerFamily Dudgjhtg23/10/235 Trista Thao NP [address] [place] [address] Nurse PractitionerPulmonary Stnqamq87/10/235Team MemberRelationship SpecialtyStart DateEnd Date Eliceo Beltran DO [address] [place] [address] PCP - GeneralFamily Medicine02/14/24 Eliceo Beltran [address] [place] [address] PCP - [facility] [place] [employer]07/27/2412Team MemberRelationshipSpecialty Start DateEnd Date Denny Rodríguez MD [address] [place] [address] PCP - GeneralFamily Medicine12/02/18 Source Comments (unrecognize d section and content) In the event this informatio n is protected by the Federal Confidentiality of Alcohol and Drug Abuse Patient Records regulations: The Federal rules restrict any use of the information to criminally investigate or prosecute any alcohol or drug abuse patient.[facility] Hospital[facility] the event this information is protected by the Federal Confidentiality of Alcohol and Drug Abuse Patient Records regulations: The Federal rules restrict any use of the information to criminally investigate or prosecute any alcohol or drug abuse patient.[facility] HospitalIn the event this information is protected by the Federal Confidentiality of Alcohol and Drug Abuse Patient Records regulations: The Federal rules restrict any use of the information to criminally investigate or prosecute any alcohol or drug abuse patient.[facility] HospitalIn the event this information is protected by the Federal Confidentiality of Alcohol and Drug Abuse Patient Records regulations: The Federal rules restrict any use of the information to criminally investigate or prosecute any alcohol or drug abuse patient.[facility] HospitalIn the event this information is protected by the Federal Confidentiality of Alcohol and Drug Abuse Patient Records regulations: The Federal rules restrict any use of the information to criminally investigate or prosecute any alcohol or drug abuse patient.[facility] HospitalIn the event this information is protected [...] or prosecute any alcohol or drug abuse patient.[facility] HospitalIn the event this information is protected by the Federal Confidentiality of Alcohol and Drug Abuse Patient Records regulations: The Federal rules restrict any use of the information to criminally investigate or prosecute any alcohol or drug abuse patient.[facility] HospitalIn the event this information is protected by the Federal Confidentiality of Alcohol and Drug Abuse Patient Records regulations: The Federal rules restrict any use of the information to criminally investigate or prosecute any alcohol or drug abuse patient.[facility] HospitalIn the event this information is protected by the Federal Confidentiality of Alcohol and Drug Abuse Patient Records regulations: The Federal rules restrict any use of the information to criminally investigate or prosecute any alcohol or drug abuse patient.[facility] HospitalIn the event this information is protected by the Federal Confidentiality of Alcohol and Drug Abuse Patient Records regulations: The Federal rules restrict any use of the information to criminally investigate or prosecute any alcohol or drug abuse patient.[facility] HospitalIn the event this information is protected by the Federal Confidentiality of Alcohol and Drug Abuse Patient Records regulations: The Federal rules restrict any use of the information to criminally investigate or prosecute any alcohol or drug abuse patient.[facility] HospitalIn the event this information is protected by the Federal Confidentiality of Alcohol and Drug Abuse Patient Records regulations: The Federal rules restrict any use of the information to criminally investigate or prosecute any alcohol or drug abuse patient.[facility] HospitalIn the event this information is protected by the Federal Confidentiality of Alcohol and Drug Abuse Patient Records regulations: The Federal rules restrict any use of the information to criminally investigate or prosecute any alcohol or drug abuse patient.[facility] HospitalIn the event this information is protected by the Federal Confidentiality of Alcohol and Drug Abuse Patient Records regulations: The Federal rules restrict any use of the information to criminally investigate or prosecute any alcohol or drug abuse patient.[facility] Reason for Visit (unrecogniz ed section and content) ReasonCommentsMenstrual ProblemReasonCommentsVaginal BleedingReasonComments EndometriosisReasonCommentsInsurance AuthorizationOrilissaReasonCommentsPelvic PainSpecialtyDiagnoses / ProceduresReferred By ContactReferred To ContactOB/SOFTWARE DEVELOPMENT ADVISOR / GYNECOLOGY Diagnoses Painful menstrual periods Painful Periods Procedures OFFICE/OUTPATIENT ESTABLISHED SF MDM 10-19 MIN EST WHI PATIENT Jihan Downs, WEB UI DESIGNER.POTTER OR CERAMIC ARTIST [address] [place] [id number] Jihan Downs, WEB UI DESIGNER.POTTER OR CERAMIC ARTIST [address] [place] [id number] Referral IDStatusReasonStart DateExpiration DateVisits RequestedVisits [id number] MRI SpecialtyDiagnoses / ProceduresReferred By ContactReferred To ContactMR IMAGING Diagnoses Pelvic and perineal pain Procedures MRI FEMALE PELVIS WO/W IVCON MRI PELVIS W/O & W/CONTRAST MATERIAL Charlene Rodriguez DO [address] [facility] [address] [place] [address] Mr Imaging [place] [address] Referral IDStatusReasonStart DateExpiration DateVisits RequestedVisits [id number] Auto-Generated Referral /[id number] DateCommentsRefill Ulprvpr8301/02/2024eason CommentsMenorrhagiaCramping with bleedingReasonCommentsSurgery Cancelled SpecialtyDiagnoses / ProceduresReferred By ContactReferred To Contact Diagnoses Preeclampsia, severe, third trimester Procedures O14.13 - Preeclampsia, severe, third trimester Kathe Ryder, [address] [place] [address] [facility] [address] [place] [address] Referral IDStatusReasonStart DateExpiration DateVisits RequestedVisits [id number] Pressure CheckReasonCommentsDysmenorrhea ReasonCommentsWell Women VisitReasonCommentsShoulder PainReasonCommentsPainful IntercourseReasonCommentsAmenorrheaReasonCommentsRoutine VisitReason CommentsGestational DiabetesSpecialtyDiagnoses / ProceduresReferred By Contact Referred To ContactMaternal and Medicine Diagnoses Gestational diabetes mellitus (GDM) in second trimester, gestational diabetes method of control unspecified Nathan Pop, DO [address] [place] [address] [place] [address] Phone: tel: fax: Maternal- Medicine at [facility] [address] [place] [address] Phone: tel: fax: Referral IDStatusReasonStart DateExpiration DateVisits RequestedVisits [id number] Review Specialty Services Required /[id number] consult Scheduled Active and Recently Administ ered [...] every 2-3 minutes with cervical changes or [place] units (MVU) greater than 200 in a [...] Fraga, RN) * 0551 (Given - Provider: Lnai Fraga, RN) * 1221 (Given - Provider: [...] BE BASED ON THE PRIMARY CLINICAL RECORDS. [employer] provides no warranty or guarantee of the accuracy or completeness of information in this document.
[2025-10-31 10:30] VITALS: BP 124/74; PULSE 93; TEMP 36.9
== END 2025-10-31 11:20 | disposition home or self-care (01) ==
LOC: US 10:05 → FBC 10:07
PROVIDERS: Family Provider Family Medicine; PCP Family Medicine; Visit Provider Nurse Practitioner Family
DX: O13.9 Gestational [pregnancy-induced] hypertension without significant proteinuria, unspecified trimester (principal); O24.419 Gestational diabetes mellitus in pregnancy, unspecified control; Z3A.36 36 weeks gestation of pregnancy
CPT/HCPCS: 76818

== ENCOUNTER 2025-11-04 13:07 | Outpatient (OUT) | payer OTHER, SELFPAY ==
[2025-11-04 13:12] VITALS: BP 135/74; PULSE 94
--- OUTSIDE RECORDS SUMMARY | 2025-11-04 13:13 | XMS_ITS | CCD ---
Author Organization [facility] Care Team Providers Care Hand Screen Printer Name Role Phone Unavailable Unavailable POCOPAL QUINTEROS Referring Unavailable DENNY RODRÍGUEZ Primary Care Unavailable OPAL LARA Referring Unavailable DENNY RODRÍGUEZ Primary Care Unavailable DENNY RODRÍGUEZ Primary Care Physician Domo Hodges Unavailable PAOLO DIALLO Attending Unavailable KATHE RYDER Admitting Unavailable KATHE RYDER Attending Unavailable Denny Rodríguez MD Primary Care Provider [phone] Denny Rodríguez MD Unavailable Denny Rodríguez MD Primary Care Provider [phone] Denny Rodríguez MD Unavailable Kita INSPECTION CLERK, Zenobia Unavailable Keesha INSPECTION CLERK, Trista R Unavailable [phone] Denny Rodríguez MD Primary Care Provider [...] Care Provider Kiesha DO, Nathan Attending Provider [phone] Kiesha, Nathan Admitting Unavailable Kiesha, Nathan [...] Unavailable Denny Rodríguez MD Primary Care Provider [phone] KIESHA, NATHAN R Referring Unavailable RODRÍGUEZ, DENNY A Primary Care Unavailable MADHURI MONROY Attending Unavailable RODRÍGUEZ, DENNY A Referring Unavailable RODRÍGUEZ, DENNY A Primary Care Unavailable Denny Rodríguez MD Unavailable Denny Rodríguez MD Primary Care Provider [phone] Denny Rodríguez MD Unavailable [phone] Kita INSPECTION CLERK, Zenobia Unavailable Keesha INSPECTION CLERK, Trista R Unavailable ELICEO BELTRAN Attending Unavailable [...] [No Known Medication Allergies]Propensity to adverse reactions (disorder)[facility] Repository Medications Current Medications MedicationDrug Class(es)DatesSig (Normalized)Sig (Original)acetaminophen 325 mg / butalbital 50 mg / caffeine 40 mg oral tablet (14 sources)Barbiturate, Central Nervous System Stimulant, MethylxanthineStart: 02-19-2024 End: 85-20-3832wsil 1 tablet by mouth every six hours for headache zrdfvioagu-ccvpjflrsdaxc-avfjixdm 50-325-40 MG tablet Indications: Other migraine without status migrainosus, not intractable Take 1 tablet by mouth every 6 (six) hours if needed for headaches 20 tablet 02/19/2024 05/01/2025 Discontinuedatenolol 25 mg oral tablet (4 sources)beta-Adrenergic BlockerStart: 07-72-7424gmva 1 mg by mouth once daily atenolol 25 mg Tab mg tab(s), Oral, Daily, Refills(s) 0 Start Date: 02/02/21 Status: OrderedStart: 08-06-2017 End: 00-63-6492pmhn 1 tablet by mouth once dailyAtenolol 50 mg tablet Discontinued 50 MG PO Daily August 06, 2017 12:00am October 16, 2018 3 :34pmbaclofen suppository 10 mg (CPD) (8 sources)Start: 30-86-6491gqzbnnft suppository 10 mg (CPD) Indications: High- tone pelvic floor dysfunction , Chronic pelvic pain in female Unwrap and insert one suppository vaginally daily at bedtime. 30 Suppository 2 08/24/2023 Active Comment on above:Unwrap and insert one suppository vaginally daily at bedtime. Blood Glucose Monitoring Suppl (D-Care Glucometer) w/Device kit (20 sources)Start: 08-20-2025 End: 26-76-6685Phnuo Glucose Monitoring Suppl (D-Care Glucometer) w/Device kit Indications: Gestational diabetes mellitus (GDM), antepartum, gestational diabetes method of control unspecified ([facility]) , Elevated glucose tolerance test 1 kit Daily Use four times daily to check FSBS. In the morning prior to breakfast & 1 hour after each meal for a total of 4times daily. 1 kit 08/20/2025 08/20/2026 Activecephalexin 500 mg oral capsule (6 sources)Cephalosporin AntibacterialStart: 02-14-2021 End: 24-31-8070kswn 1 capsule by mouth every twelve hoursKeflex 500 mg Cap 500 mg = 1 cap(s), Oral, q12hr, X 7 day(s), # 14 cap(s), Refills(s) 0 Start Date: 07/14/22 Stop Date: 07/21/22 Status: OrderedStart: 03-14-2019 End: 19-68-7549hsfd 1 capsule by mouth every twelve hoursCephalexin (Keflex) 500 mg capsule Discontinued 500 MG PO Q12H 14 March 14, 2019 12:00am August 04, 2019 8:18amcyclobenzaprine hydrochloride 5 mg oral tablet (20 sources)Muscle RelaxantStart: 12-30-2024 End: 09-30-3337bqgf 1 tablet by mouth in the morning, [...] 30 tablet 12/30/2024 01/09/2025 ActiveStart: 05-01-2023 End: 40-92-1075odob 1 tablet by mouth at bedtime as neededcyclobenzaprine (FLEXERIL) 5 mg tablet Indications: Dysmenorrhea , Chronic pelvic pain in female Take 1 tablet by mouth at bedtime as needed. 30 tablet 1 05/01/2023 ActiveStart: 27-02-2829yjnp 1 tablet by mouth three times daily as needed for muscle spasms cyclobenzaprine 10 mg Tab 10 mg = 1 tab(s), Oral, TID, PRN for spasm, # 30 tab(s), Refills(s) 0, Pharmacy: [facility] 858, 157, cm, 01/23/22 7:20:00 EST, Height/Length Dosing, 55, kg, 01/23/22 7:20:00 EST, Weight Dosing Start Date: 01/23/22 Status: Ordered Quantity: 30.0 Unit: tab(s) Repeat number: 1 Comment on above:Take 1 tablet by mouth at bedtime as needed.cyproheptadine hydrochloride 4 mg oral tablet (10 sources)Start: 43-95-8634fjir 1 mg by mouth three times dailycyproheptadine 4 mg Tab mg tab(s), Oral, TID, Refills(s) 0 Start Date: 02/02/21 Status: Ordered Repeat number: 1Dasetta oral tablet (1 source)Start: 23-91-8556ctsw 1 tablet by mouth once dailyDasetta oral tablet 1 tab(s), Oral, Daily, Refill(s) 0, control/menstrual regulation Start Date: 11/23/16 Status: Ordereddocusate sodium 100 mg oral capsule (7 sources)Start: 11-30-2022 End: 74-96-6479riuw 1 capsule by mouth twice daily as needed for constipation Docusate Sodium (DSS) 100 MG capsule Take 1 capsule (100 mg) by mouth 2 times daily as needed for constipation (Vaginal Delivery) for up to 10 days. 60 capsule 0 12/01/2022 12/31/2022 ActiveStart: 07-14-2022 End: 52-50-2545tcqz 1 capsule by mouth twice dailyColace 100 mg Cap 100 mg = 1 cap(s), Oral, BID, X 10 day(s), # 20 cap(s), Refills(s) 0 Start Date: 07/14/22 Stop Date: 07/24/22 Status: Orderedelagolix 150 mg oral tablet (13 sources)Start: 07-16-2023 End: 93-09-5772smon 1 tablet by mouth once dailyelagolix (ORILISSA) 150 mg tablet Take 1 tablet (150 mg) by mouth once daily. 30 tablet 11 07/16/2023 07/15/2024 ActiveStart: 66-79-3084ooad 1 tablet by mouth twice dailyOrilissa 200 MG Oral Tablet take 1 tablet by mouth twice a day Quantity: 60 Refills: 4 Ordered: 09-Feb-2022 Charlene Rodriguez DO Start : 09-Feb-2022 ActiveComment on above:Take 1 tablet (150 mg) by mouth once daily.ergocalciferol 0.05 mg oral capsule (1 source)Provitamin D2 CompoundStart: 05-57-1678Qiznnmq D2 2000 intl units oral capsule Oral, Daily, Refills(s) 0 Start Date: 02/02/21 Status: OrderedEthinyl Estradiol / Levonorgestrel (8 sources)Progestin, Estrogen, Progestin-containing Intrauterine DeviceStart: 04-03-2024 End: 92-39-7712vmjixufhkztbrc-ethinyl estradiol (Jolessa) 0.15-0.03 MG tablet Indications: Uses control TAKE1 TABLET BY MOUTH EVERY MORNING 91 tablet 3 04/03/2024 08/18/2024 Discontinued (Other)Start: 51-97-4282rpjjnxgyeavmlr- ethinyl estradiol (Jolessa) 0.15-0.03 MG tablet Indications: Uses control TAKE1 TABLET BY MOUTH EVERY MORNING 91 tablet 3 04/03/2024 ActiveStart: 01-10-2024 End: 21-00-3891eddk 1 tablet by mouth in the morning, then take 1 tablet by mouth once dailylevonorgestrel-ethinyl estradiol (Jolessa) 0.15-0.03 MG tablet Indications: Uses control Take1 tablet by mouth in the morning. Take 1 tablet by mouth daily. 90 tablet 0 01/10/2024 04/09/2024 Activeethinyl estradiol 0.035 mg / norgestimate 0.25 mg oral tablet (4 sources)Progestin, EstrogenStart: 49-06-9167tndaamjdzxwr-ethinyl estradiol (Ortho-Cyclen) 0.25-35 MG-MCG tablet 1 (one) time each day at the same time. 0 01/15/2023 ActiveStart: 88-83-6228lxup 1 tablet by mouth once dailyNorgestimate- Ethinyl Estradiol 0.25-35 mg-mcg tablet Active 1 TAB PO Daily August 04, 2019 12:00amMono-Linyah 0.25-35 MG-MCG Oral for 28 Not-TakinghydrOXYzine hydrochloride 25 mg oral tablet (10 sources)AntihistamineStart: 32-98-3291wyog 1 mg by mouth four times daily hydrOXYzine hydrochloride 25 mg Tab mg tab(s), Oral, QID, Refills(s) 0 Start Date: 02/02/21 Status: Ordered Repeat number: 1hyoscyamine sulfate 0.125 mg oral tablet (10 sources)Start: 31-92-5862pnzg 1 tablet by mouth every six hoursLevsin 0.125 mg SL Tab 0.125 mg = 1 tab(s), Oral, q6hr, # 20 tab(s), Refills(s) 1, Pharmacy: [facility], 161, cm, 03/10/21 11:21:00 EDT, Height/Length Dosing, 56, kg, 03/10/21 11:21:00 EDT, Weight Dosing Start Date: 03/10/21 Status: Ordered Quantity: 20.0 Unit: tab(s) Repeat number: 2ibuprofen 600 mg oral tablet (15 sources)Nonsteroidal Anti-inflammatory DrugStart: 01-23-2022 End: 36-90-5971jxyc 1 tablet by mouth every six hoursibuprofen 600 mg Tab 600 mg = 1 tab(s), Oral, q6hr, # 40 tab(s), Refills(s) 0, [facility]acy: [facility], 157, cm, 01/23/22 7:20:00 EST, Height/Length Dosing, 55, kg, 01/23/22 7:20:00 EST, WeightDosing Start Date: 01/23/22 Status: Ordered Quantity: 40.0 Unit: tab(s) Repeat number: 1insulin glargine-yfgn (Semglee-yfgn) 100 UNIT/ML pen (8 sources)Start: 55-46-8114upkrbdi glargine-yfgn (Semglee-yfgn) 100 UNIT/ML pen Inject 13 Units under the skin at bedtime 09/15/2025 Activeinsulin glargine-yfgn 100 unit/mL (3 mL) insulin pen (16 sources)Start: 18-06-5031cxrbsfq glargine-yfgn 100 unit/mL (3 mL) insulin pen Indications: Essential hypertension affecting in third trimester Prime with 2 units and give 5 units every morning and 23 units subQ at bedtime. 15 mL 3 09/28/2025 ActiveStart: 09-21-2025 End: 70-06-2286cxrxfed glargine-yfgn 100 unit/mL (3 mL) insulin pen Indications: Essential hypertension affecting in third trimester Prime with 2 units and give 5 units every morning and 20 units subQ at bedtime. 15 mL 3 09/21/2025 09/28/2025 DiscontinuedStart: 64-15-5954jusialj glargine-yfgn 100 unit/mL (3 mL) insulin pen Indications: Essential hypertension affecting in third trimester Prime with 2 units and give 5 units every morning and 20 units subQ at bedtime. 15 mL 3 09/21/2025 ActiveStart: 09-17-2025 End: 89-81-2299tdqpqal glargine-yfgn 100 unit/mL (3 mL) insulin pen Indications: Essential hypertension affecting in third trimester Prime with 2 units and give 5 units every morning and 17 units subQ at bedtime. 15 mL 3 09/17/2025 09/21/2025 DiscontinuedStart: 83-24-6064cgfsijd glargine-yfgn 100 unit/mL (3 mL) insulin pen Indications: Essential hypertension affecting in third trimester Prime with 2 units and give 5 units every morning and 17 units subQ at bedtime. 15 mL 3 09/17/2025 ActiveStart: 09-15-2025 End: 78-82-3102acsijex glargine-yfgn 100 unit/mL (3 mL) insulin pen Indications: Essential hypertension affecting in third trimester Prime with 2 units and give 17 units subQ at bedtime. 15 mL 3 09/15/2025 09/17/2025 Discontinued Start: 89-49-9004aybtkri glargine-yfgn 100 unit/mL (3 mL) insulin pen Indications: Essential hypertension affecting in third trimester Prime with 2 units and give 17 units subQ at bedtime. 15 mL 3 09/15/2025 ActiveStart: 09-10-2025 End: 42-34-6306rcyrwei glargine-yfgn 100 unit/mL (3 mL) insulin pen Indications: Essential hypertension affecting in third trimester Prime with 2 units and give 13 units subQ at bedtime. 15 mL 3 09/10/2025 09/15/2025 Discontinued Start: 64-79-1258bgfowuy glargine-yfgn 100 unit/mL (3 mL) insulin pen Indications: Essential hypertension affecting in third trimester Prime with 2 units and give 13 units subQ at bedtime. 15 mL 3 09/10/2025 ActiveStart: 09-04-2025 End: 25-48-3473havlgn 2 [IU] by subcutaneous injection once, then inject 10 [IU] by subcutaneous injection at bedtimeinsulin glargine-yfgn 100 unit/mL (3 mL) insulin pen Indications: Diet controlled gestational diabetes mellitus (GDM) in second trimester , Essential hypertension affecting in third trimester Prime with 2 units and give 10 units subQ at bedtime. 15 mL 3 09/04/2025 09/10/2025 DiscontinuedStart: 36-31-4819xyijlz 2 [IU] by subcutaneous injection once, then inject 10 [IU] by subcutaneous injection at bedtimeinsulin glargine- yfgn 100 unit/mL (3 mL) insulin pen Indications: Diet controlled gestational diabetes mellitus (GDM) in second trimester , Essential hypertension affecting in third trimester Prime with 2 units and give 10 units subQ at bedtime. 15 mL 3 09/04/2025 Activeisopropyl alcohol 0.7 ml/ml medicated pad (20 sources)Start: 76-93-4066Kdypznw Swabs (Alcohol Prep Pad) 70 % pads Indications: Gestational diabetes mellitus (GDM), antepartum, gestational diabetes method of control unspecified ([facility]) , Elevated glucose tolerance testApply 1 Pad topically Daily Use four times daily to check FSBS. 150 each 3 08/20/2025 Activeiv contrast (will be provided with radiology test) (12 sources)Start: 51-98-9242wx contrast (will be provided with radiology test) [...] 200 mg oral tablet (20 sources)beta-Adrenergic BlockerStart: 45-52-0774geap 1 tablet by mouth in the morninglabetalol (Normodyne) 200 MG tablet Indications: Gestational Hypertension Take 1 tablet (200 mg) bymouth in the morning and 1 tablet (200 mg) before bedtime. 60 tablet 3 09/03/2025 ActiveStart: 07-30-2025 End: 72-48-7779jaew 1 tablet by mouth in the morninglabetalol (Normodyne) 100 MG tablet Indications: Hypertension, unspecified type Take 1 tablet (100 mg) by mouth in the morning and 1 tablet (100 mg) before bedtime. 60 tablet 5 07/30/2025 09/03/2025 DiscontinuedStart: 11-28-2022 End: 24-78-2615ugtsuphqj (Normodyne,Trandate) injection 20 mgStart: 11-28-2022 End: 38-18-9959bdygmntxn (Normodyne,Trandate) injection 20 mgStart: 11-28-2022 End: 34-15-8621ocyhjeaqs (Normodyne,Trandate) 5 MG/ML injection - Pyxis ADS Override Pulltake 2 tablets by mouth three times dailylabetaloL (NORMODYNE) 100 mg tablet Take 2 tablets (200 mg total) by mouth 3 (three) times a day. Active magnesium oxide 400 mg oral tablet (9 sources)Start: 05-01-2025 End: 00-17-1722tohy 1 tablet by mouth once dailymagnesium oxide (Mag-Ox) 400 MG tablet Indications: headache in first trimester ([facility])Take 1 tablet (400 mg) by mouth Daily 30 tablet 3 05/01/2025 05/31/2025 Activemeloxicam 15 mg oral tablet (15 sources)Nonsteroidal Anti-inflammatory DrugStart: 02-02-2021 End: 92-11-7879pdsm 1 tablet by mouth once dailymeloxicam (Mobic) 15 MG tablet Indications: Chronic right shoulder pain , Scapular dyskinesis Take 1 tablet (15 mg) by mouth Daily 30 tablet 3 12/30/2024 05/01/2025 Kweicmuyhksd66 hr metoprolol succinate 25 mg extended release oral tablet (20 sources)beta-Adrenergic BlockerStart: 10-15-2024 End: 89-60-7742nbir 1 tablet by mouth once dailymetoprolol succinate XL (Toprol- XL) 25 MG 24 hr tablet Indications: Hypertension, unspecified type Take 1 tablet by mouth daily 90 tablet 1 12/30/2024 ActiveStart: 57-39-5434pyib 1 tablet by mouth once dailymetoprolol succinate XL (Toprol-XL) 25 MG 24 hr tablet Indications: Hypertension, unspecified type (CMS/HCC) Take 1 tablet by mouth daily 90 tablet 1 04/23/2024 ActiveStart: 87-76-4219wpiv 1 tablet by mouth once dailymetoprolol succinate XL (Toprol-XL) 25 MG 24 hr tablet Indications: Hypertension, unspecified type (CMS/HCC) Take 1 tablet by mouth daily 90 tablet 1 10/23/2023 ActiveStart: 02-27-2023 End: 24-61-8966oaccsfzgjp succinate ER (TOPROL XL) 25 mg 24 hr tabletnaproxen 500 mg delayed release oral tablet (20 sources)Nonsteroidal Anti-inflammatory DrugStart: 55-76-0994hptz 1 tablet by mouth twice dailynaproxen 500 mg oral enteric coated tablet 500 mg = 1 tab(s), Oral, BID, # 28 tab(s), Refills(s) 0 Start Date: 11/07/21 Status: Ordered Quantity: 28.0 Unit: tab(s) Repeat number: 1Start: 03-04-2021 End: 33-88-1959vnqf 1 tablet by mouth twice dailynaproxen 500 mg Tab 500 mg = 1 tab(s), Oral, BID, Take one tab by mouth two times a day, # 14 tab(s), Refills(s) 0, [facility], 157, cm, 03/04/21 7:22:00 EDT, Height/Length Dosing,52, kg, 03/04/21 7:22:00 EDT, Weight Dosing Start Date: 03/04/21 Status: Ordered Quantity: 14.0 Unit:tab(s) Repeat number: 1Start: 11-02-2018 End: 54-63-4070qgfb 1 tablet by mouth twice daily as [...] (5 sources)Dihydropyridine Calcium Channel BlockerStart: 11-28-2022 End: 01-81-5395MPZUhuvjlg XL (Procardia XL) 30 MG 24 hr tablet Take 1 tablet (30 mg) by mouth daily. Do not crush,chew, or split. Do not start before December 02, 2022. 90 tablet 0 12/02/2022 12/02/2023 Activenorethindrone acetate 5 mg oral tablet (20 sources)Start: 05-17-2023 End: 42-04-0275sebs 2 tablets by mouth once dailynorethindrone (AYGESTIN) 5 mg tablet Take 2 tablets by mouth once daily. 60 tablet 5 01/03/2024 07/01/2024 ActiveStart: 04-11-2023 End: 10-99-8713pany 1 tablet by mouth once dailynorethindrone (AYGESTIN) 5 mg tablet Take 1 tablet by mouth once daily. 30 tablet 11 04/11/2023 ActiveStart: 63-37-5001onuq 1 tablet by mouth once dailyNorethindrone Acetate [...] mg/ml rectal foam (2 sources)Start: 07-14-2022 End: 97-77-1615rfko 15 g rectal route twice dailyProctoFoam 1% Foam apply, Rectal, BID for 7 day(s), 15 gm, Refill(s) 0 Start Date: 07/14/22 Stop Date: 07/21/22 Status: OrderedPrenatal Multivitamins with Vitamin B Complex, Vitamin C, Minerals and L-Methylfolate oral capsule (9 sources)Start: 02-26-2392Yppvpkfj Multivitamins with Vitamin B Complex, Vitamin C, Minerals and L-Methylfolate oral capsule 1 cap(s), Oral, Daily, 30 cap(s), Refill(s) 0 Start Date: 07/14/22 Status: Ordered Quantity: 30.0 Unit: cap(s) Repeat number: 1Start: 43-80-0749Mymkifbv Multivitamins with Vitamin B Complex, Vitamin C, Minerals and L-Methylfolate oral capsule 1 cap(s), Oral, Daily, 30 cap(s), Refill(s) 0 Start Date: 07/14/22 Status: OrderedPrenatal Vit-Fe Fumarate-FA ( Vitamin) 27-0.8 MG tablet (3 sources) Vit-Fe Fumarate-FA ( Vitamin) 27-0.8 MG tablet Take by mouth. 0 ActivePrenatal Vit-Fe Fumarate-FA ( Vitamins) 28-0.8 MG tablet (20 sources)Start: 05-01-2025 End: 87-33-7133rjsh 1 tablet by mouth once dailyPrenatal Vit-Fe Fumarate-FA ( Vitamins) 28-0.8 MG tablet Indications: , unspecified gestational age ([facility]) , Encounter for supervision of normal first in first trimester([facility]) Take 1 tablet by mouth Daily 30 tablet 11 05/01/2025 05/01/2026 ActiveStart: 05-01-2025 End: 45-00-5767lfhb 1 tablet by mouth once dailyPrenatal Vit-Fe Fumarate-FA ( Vitamins) 28-0.8 MG tablet Indications: , unspecified gestational age , Encounter for supervision of normal first in first trimester Take 1 tablet by mouth Daily 30 tablet 11 05/01/2025 05/01/2026 Active SUMAtriptan 100 mg oral tablet (10 sources)Serotonin-1b and Serotonin-1d Receptor AgonistStart: 43-82-7121zkul 1 mg by mouth onceImitrex 100 mg Tab mg tab(s), Oral, Once, Refills(s) 0 Start Date: 02/02/21 Status: Ordered Repeat number: 1Surgical Lubricant Jelly gel (12 sources)Start: 32-51-4255Bbxiifut Lubricant Jelly gel For MRI Female Pelvis, MRI department to provide. Administer intra-vaginal Surgilube immediately prior the MRI procedure (total amount to patient toleranace). 1 g 0 05/17/2023 Active Comment on above:For MRI Female Pelvis, MRI department to provide. Administer intra-vaginal Surgilube immediately prior the MRI procedure (total amount to patient toleranace).tiZANidine 4 mg oral tablet (3 sources)Central alpha-2 Adrenergic AgonistStart: 45-99-1029hjka 1 mg by mouth every eight hourstiZANidine 4 mg Tab mg tab(s), Oral, q8hr, Refills(s) 0 Start Date: 02/02/21 Status: OrderedtraMADol hydrochloride 50 mg oral tablet (10 sources)Opioid AgonistStart: 21-41-3629bxyg 1 tablet by mouth every four hours as needed for paintraMADol (ULTRAM) 50 mg tablet Indications: Pelvic pain in female Take 1 tablet by mouth every 4 hours as needed for pain. 20 tablet 0 08/30/2023 ActiveStart: 40-96-6866rmpe 1 tablet by mouth every six hourstraMADol HCl - 50 MG Oral Tablet TAKE 1 TABLET Every 6 hours Quantity: 20 Refills: 0 Ordered: 18-Aug-2020 Charlene Rodriguez DO Start : 18-Aug-2020 ActiveStart: 03-12-2019 End: 92-62-9119acyo 1 tablet by mouth every four hours as needed for pain Tramadol 50 mg tablet Discontinued 50 MG PO Q4H as needed for pain 30 5 March 12, 2019 12:00am August 04, 2019 8:19amComment on above:Take 1 tablet by mouth every 4 hours as needed for pain.Vitamin D2 2000 intl units oral capsule (9 sources)Start: 92-84-9509qcfu 1 capsule by mouth once dailyVitamin D2 2000 intl units oral capsule Oral, Daily, Refills(s) 0 Start Date: 02/02/21 Status: Ordered Repeat number: 1Start: 88-32-5657Cbpkptb D2 2000 intl units oral capsule Oral, Daily, Refills(s) 0 Start Date: 02/02/21 Status: Ordered Completed/Discontinued Medications MedicationDrug Class(es)DatesSig (Normalized)Sig (Original)acetaminophen 325 mg oral tablet (4 sources)Start: 11-30-2022 End: 26-64-8045htoi 1 tablet by mouth every six hours as needed for bdsa210 mg, Oral, Every 6 hours PRN, mild pain (1-3), Starting on Constance 11/30/22 at 0422 Give in addition to any other pain medication ordered at same time for any pain indication. Maximumdose of acetaminophen is 4000 mg from all sources in 24 hours. Alternate ibuprofen and acetaminophen every 3 hours.Start: 11-28-2022 End: 18-09-6384bkoxhkfokdpto (Tylenol) tablet 1,000 mgacetaminophen 300 mg / codeine phosphate 30 mg oral tablet (4 sources)Opioid AgonistStart: 01-19-2025 End: 89-70-8770mrmn 1 tablet by mouth every six hours for painacetaminophen- codeine (Tylenol w/ Codeine #3) 300-30 MG tablet Indications: Pain in female genitalia on intercourse , Endometriosis Take 1 tablet by mouth every 6 (six) hours if needed for severe pain for up to 5 days 20 tablet 01/19/2025 01/24/2025 ExpiredStart: 07-22-2024 End: 09-19-0507dejb 1 tablet by mouth every six hours for painacetaminophen- codeine (Tylenol w/ Codeine #3) 300-30 MG tablet Indications: Dysmenorrhea, unspecified Take 1 tablet by mouth every 6 (six) hours if needed for severe pain for up to 5 days 20 tablet 07/22/2024 07/27/2024 Activeascorbic acid 500 mg oral tablet (5 sources)Vitamin CStart: 10-25-2018 End: 38-39-6027dqnx 2 tablets by mouth in the morningASCORBIC ACID WITH ISAURO HIPS 500 MG tablet Take 2 tablets (1,000 mg total) by mouth in the morning.0 10/25/2018 09/04/2025 Discontinued ()aspirin 325 mg / butalbital 50 mg / caffeine 40 mg oral capsule (11 sources)Platelet Aggregation Inhibitor, Barbiturate, Nonsteroidal Anti- inflammatory Drug, Central Nervous System Stimulant, Methylxanthine End: 17-63-8753zcch 1 capsule by mouth every four hours as needed vuxkqfrmrd-pcybbta-eharrfff (Fiorinal) 50-325-40 MG capsule Take 1 capsule [...] spray (2 sources)Standardized Chemical AllergenStart: 11-30-2022 End: 62-30-1243Wpupqyn, As needed, pain, , Starting on Constance 11/30/22 at 0608, Apply to perineal area. Patient is capable and may self administer at bedside.betamethasone 3 mg/ml / betamethasone acetate 3 mg/ml injectable suspension (2 sources)CorticosteroidStart: 11-28-2022 End: 62-06-4969jpbtoyfvxpqdk acetate-betamethasone sodium phosphate (Celestone) injection 12 mgcalcium chloride 0.0014 meq/ml / potassium chloride 0.004 meq/ml / sodium chloride 0.103 meq/ml / sodium lactate 0.028 meq/ml injectable solution (2 sources)Start: 11-28-2022 End: 42-02-2783fsod 125 mL intravenously every [id number] mL/hr, IntraVENous, Continuous, Starting on Sun11/28/22 at 0100, Pre-Deliverycetirizine hydrochloride 10 mg oral tablet (17 sources)Histamine-1 Receptor AntagonistStart: 06-09-2025 End: 21-58-3144vsyy 1 tablet by mouth once dailycetirizine (ZyrTEC ALLERGY) 10 MG tablet Indications: Allergy, sequela Take 1 tablet (10 mg) by mouth Daily 30 tablet 11 06/09/2025 07/15/2025 DiscontinuedchlordiazePOXIDE hydrochloride 5 mg / clidinium bromide 2.5 mg oral capsule (1 source)Anticholinergic, BenzodiazepineStart: 86-62-7875ciyr 1 capsule by mouth every eight hourschlordiazePOXIDE-Clidinium 5-2.5 MG 1 capsule before meals Orally Three times a day for 30 day(s) May, Not-Taking chlorhexidine gluconate 20 mg/ml medicated pad (2 sources)Start: 11-28-2022 End: 07-37-7606dgknj 1 dose topically every six hoursTopical, Every 6 hours, First dose on Sun11/28/22 at 0100, Pre-Delivery Apply to the affected area.&a mp;nbsp; Clean entire abdomen.cholecalciferol 0.125 mg oral capsule (5 sources)Vitamin DStart: 10-25-2018 End: 89-36-1999jadx 1 capsule by mouth in the morningcholecalciferol, vitamin D3, (VITAMIN D3) 5,000 units capsule Take 1 capsule (5,000 Units total) bymouth in the morning. 0 10/25/2018 09/04/2025 Discontinued ()desogestrel 0.15 mg / ethinyl estradiol 0.03 mg oral tablet (11 sources)Progestin, EstrogenStart: 07-22-2024 End: 50-03-5779rpkbbaegvbr-ethinyl estradiol (Apri) 0.15-30 MG-MCG tablet Indications: Dysmenorrhea, unspecified Take 1 tablet by mouth Daily 21 tablet 12 10/20/2024 01/19/2025 Discontinued (Other)diphenhydrAMINE (BENADryl) injection 25 mg (2 sources)Start: 11-30-2022 End: 50-39-1774huvm 25 mg intravenously every six hours as neededdiphenhydrAMINE (BENADryl) injection 25 mgNorethindrone-E.Estradiol-Iron (1 source)EstrogenStart: 10-17-2017 End: 49-64-8025buij 1 tablet by mouth once dailyNorethindrone-E.Estradiol-Iron (Lo Loestrin Fe) 1 mg-10 mcg (24)/10 mcg (2) tablet Discontinued 1 TAB PO Daily October 17, 2017 1:00am March 12, 2019 6:15amEthinyl Estradiol / Norethindrone (7 sources)EstrogenStart: 12-01-2018 End: 88-23-0759toxl 0.05 ug by mouth once in the eveningnorethindrone ac-eth estradiol (MICROGESTIN 1/20) 1-20 mg-mcg per tablet Take 1 tablet by mouth in t he evening. 0 12/01/2018 09/04/2025 Discontinued ()Start: 12-01-2018 take 0.05 ug by mouth once in the eveningnorethindrone ac-eth estradiol (MICROGESTIN 1/20) 1-20 mg-mcg per tablet Take 1 tablet by mouth in the evening. 0 12/01/2018 ActiveStart: 26-60-7154guua 1 tablet by mouth once dailyDasetta oral tablet 1 tab(s), Oral, Daily, Refill(s) 0, control/menstrual regulation Start Date: 11/23/16 Status: Orderedfamotidine 20 mg oral tablet (2 sources)Histamine-2 Receptor AntagonistStart: 11-30-2022 End: 94-84-0697wbdr 20 mg by mouth twice daily as needed for gastroesophageal reflux mmialzr56 mg, Oral, 2 times daily PRN, heartburn, Starting on Constance 11/30/22 at 0608, Renal dose per pharmacy for peptic ulcer prophylaxis.ferrous sulfate 325 mg oral tablet (8 sources)Start: 11-30-2022 End: 05-38-6886ytbv 325 mg by mouth twice daily at nsxrugdp898 mg, Oral, 2 times daily with meals, First dose on Constance 11/30/22 at 0800, Start if Hgb le ss than 10. End: 22-91-0630xnsm 1 tablet by mouth in the morningFerrous Sulfate (IRON PO) Take 1 tablet by mouth in the morning. 09/16/2025 Discontinuedtake 1 tablet by mouth in the morningFerrous Sulfate (IRON PO) Take 1 tablet by mouth in the morning. ActiveFLUoxetine 20 mg oral capsule (17 sources)Serotonin Reuptake InhibitorStart: 49-41-1016rycp 1 capsule by mouth once dailyFLUoxetine HCl - 20 MG Oral Capsule TAKE 1 CAPSULE Daily Quantity: 30 Refills: 11 Ordered: 02-Jun-2021 Kuldip DAY Charlene Start : 02-Jun-2021 Active Start: 11-02-2018 End: 63-81-1968bjkg 1 capsule by mouth once dailyFluoxetine (Prozac) 20 mg capsule Discontinued 20 MG PO Daily November 02, 2018 1:00am August 04, 2019 8:19amtake 1 capsule by mouth once dailyFLUoxetine (PROZAC) 10 mg capsule Take 10 mg by mouth once daily. 0 ActiveComment on above:Take 10 mg by mouth once daily.fluticasone propionate 0.05 mg/actuat metered dose nasal spray (16 sources)CorticosteroidStart: 06-22-2025 End: 86-16-8451ndqj 1 spray(s) nasal route once dailyfluticasone (Flonase) 50 MCG/ACT nasal spray Indications: Sinusitis, unspecified chronicity, unspecified location Administer 1 spray into each nostril Daily Shake gently. Before first use, prime pump. After use, clean tip and replace cap. 16 g 12 06/22/2025 07/15/2025 Discontinued End: 62-85-6940qxdt 1 spray(s) nasal route in the morningfluticasone (Flonase) 50 MCG/ACT nasal spray Administer 1 spray into affected nostril(s) in the morn ing. 09/16/2025 Discontinued End: 44-13-5532xzsk 1 spray(s) nasal route in the morningfluticasone propionate (FLONASE) 50 mcg/actuation nasal spray Administer 1 spray into each nostril in the morning. 09/04/2025 Discontinued ()lanolin 1000 mg/ml topical cream (2 sources)Start: 11-30-2022 End: 37-57-8980Hvaqwgj, As needed, dry skin, nipple discomfort, Starting on Sun11/30/22 at 0608, Apply to affected area.500 ml magnesium sulfate 40 mg/ml injection (4 sources)Start: 11-28-2022 End: 34-57-8373ubpbvmvjd sulfate 20 GM/500ML infusionStart: 11-28-2022 End: 37-82-6769olrihsrww sulfate 20 GM/500ML infusion - Pyxis ADS Override Pull metoclopramide 10 mg oral tablet (2 sources)Dopamine-2 Receptor AntagonistStart: 23-25-7184cfgw 1 tablet by mouth every eight hoursReglan 10 MG 1 tablet before meals Orally tid for 30 day(s) March, Not-TakingmiSOPROStol 0.2 mg oral tablet (2 sources)Prostaglandin E1 AnalogStart: 11-30-2022 End: 18-37-0106awRZBYDMcje (Cytotec) tablet 1,000 mcgStart: 11-30-2022 End: 08-41-4504xqHGLQUNhup (Cytotec) tablet 1,000 mcgmiSOPROStol (Cytotec) split tablet 25 mcg (2 sources)Start: 11-28-2022 End: 62-91-5082farc 1 tablet vaginal route every four hoursmiSOPROStol (Cytotec) split tablet 25 mcg1 ml morphine sulfate 4 mg/ml injection (4 sources)Opioid AgonistStart: 11-28-2022 End: 78-06-2675exsiqlai sulfate (PF) injection 4 mgnitrofurantoin, macrocrystals 25 mg / nitrofurantoin, monohydrate 75 mg oral capsule (6 sources)Nitrofuran AntibacterialStart: 16-35-1701Uemhnbwveqzgka Monohyd Macro 100 MG Oral Capsule TAKE 1 CAPSULE Other Please take one capsule aftersexual intercourse to prevent UTI Quantity: 30 Refills: 11 Ordered: 01-Apr-2021 Teri Chau MD Start : 01-Apr-2021 Active2 ml ondansetron 2 mg/ml injection (12 sources)Serotonin-3 Receptor AntagonistStart: 11-29-2022 End: 13-20-2788ojtv 4 mg intravenously every six hours as needed for nausea and vomitingondansetron (Zofran) injection 4 mgStart: 34-19-2282jisz 1 tablet by mouth every six hours as needed for nauseaZofran 4 mg Tab 1 tab(s), Oral, q6hr, PRN Nausea, # 8, Refills(s) 0 Start Date: 07/14/22 Status: Ordered Quantity: 8.0 Unit: Repeat number: 1Start: 74-86-9072thqf 1 tablet by mouth three times daily Zofran 4 MG 1 tablet Orally THREE TIMES A DAY for 30 day(s) May, Not-Takingondansetron ODT (Zofran-ODT) disintegrating tablet 4 mg (2 sources)Start: 11-30-2022 End: 25-82-4694fuwj 1 tablet by mouth every eight hours [...] for 1 hour. Then discontinue.Start: 11-29-2022 End: 14-93-8295xxdnwlty (Pitocin) 30 units in 500 mL infusionStart: 11-29-2022 End: 22-89-0999hpubncmz (Pitocin) 30 units in 500 mL infusionphenazopyridine hydrochloride 200 mg oral tablet (10 sources)Start: 34-10-4844kaup 1 tablet by mouth three times dailyPyridium 200 mg Tab 200 mg = 1 tab(s), Oral, TID, Take one tab by mouth three times a day for threedays, # 9 tab(s), Refills(s) 0, Pharmacy: [facility] 858, 157, cm, 03/04/21 7:22:00 EDT, Height/Length Dosing, 52, kg, 03/04/21 7:22:00 EDT, Weight Dosing Start Date: 03/04/21 Status: Ordered Quantity: 9.0 Unit: tab(s) Repeat number: 1predniSONE 10 mg oral tablet (3 sources)Start: 09-10-2023 End: 43-48-7204jyxv 2 tablets by mouth twice daily, then [...] 09/10/2023 01/10/2024 Discontinued (Therapy completed)Start: 03-12-2019 End: 00-28-9817bdfr 3 tablets by mouth once daily at mealtimePrednisone 20 mg tablet Discontinued 60 MG PO Daily 9 March 12, 2019 12:00am August 04, 2019 8:18am administer with food or milkpromethazine hydrochloride 12.5 mg oral tablet (13 sources)PhenothiazineStart: 05-25-2025 End: 63-89-6093pwtc 1 tablet by mouth every six hours [...] nausea. 30 tablet 2 508/ Discontinued End: 01-17-3581xlnp 12.5 mg rectal route every six hours as needed for nausea and vomitingpromethazine (PHENERGAN) 12.5 mg suppository Insert 1 suppository (12.5 mg total) into the rectum every 6 (six) hours as needed for nausea or vomiting. 09/04/2025 Discontinued ()rizatriptan 5 mg disintegrating oral tablet (5 sources)Serotonin-1b and Serotonin-1d Receptor AgonistStart: 10-24-2018 End: 67-20-0618tprvvjoywcp CHILD CARE ASSOCIATE TEACHER (MAXALT-CHILD CARE ASSOCIATE TEACHER) 5 mg disintegrating tablet Dissolve 1 tablet (5 mg total) on tongue asneeded. 0 10/24/2018 09/04/2025 Discontinued ()5 ml sodium chloride 9 mg/ml injection (2 sources)Start: 11-28-2022 End: mL, IntraVENous, Every 12 hours scheduled (2 times per day), First dose on Sun11/28/22 at 0900, Pre-Deliveryvitamin b12 1 mg extended release oral tablet (5 sources)Vitamin N50Axbkm: 10-25-2018 End: 96-49-7545cvxc 1 tablet by mouth in the morningcyanocobalamin, vitamin B- 12, (VITAMIN B-12) 1,000 mcg tablet extended release Take 1 tablet (1 mg total) by mouth in the morning. 0 10/25/2018 09/04/2025 Discontinued ()witch yesi 500 mg/ml medicated pad (2 sources)Start: 11-30-2022 End: 93-34-9984Mesbwfs, As needed, hemorrhoids, For perineal pain or discomfort, Starting on Sun11/30/22 at 0608, Apply to perineal area. Patient is capable and may self administer at bedside. Problems Active Problems Problem ClassificationProblemDateDocumented DateEpisodic/ChronicAllergic reactions (1 source)Allergic reaction; Translations: [Allergy, unspecified, initial encounter]37-14-5405ZvowwnzgUclgxir on above:Problem List clean-up per request of Phys. EHR CmteAnxiety disorders (20 sources)Anxiety; Translations: [Anxiety state, unspecified]Onset: 10-08-2020 56-31-0827YjdzvmpFjfctjl on above:Problem List clean-up per request of Phys. EHR CmteCardiac dysrhythmias (20 sources)Paroxysmal tachycardia; Translations: [Paroxysmal tachycardia, unspecified]Onset: 111269-24-6403YeckhcsFjkqhyzlumowm of surgical procedures or medical care (1 source)Postoperative retention of urine; Translations: [Other postprocedural complications and disorders of genitourinary system]05-44-9879WhovdfqhQwkxmxs on above:Problem List clean-up per request of Phys. EHR CmteDiabetes mellitus without complication (2 sources)Abnormal glucose tolerance test; Translations: [Other abnormal glucose]48-83-5720OdrvvlwcUvskdbgl or abnormal glucose tolerance complicating ; childbirth; or the puerperium (20 sources)Gestational diabetes mellitus; Translations: [Gestational diabetes mellitus in , diet controlled]Onset: 862312-50-0715Bvygshzr Endometriosis (20 sources)Endometriosis (clinical); Translations: [Endometriosis, site unspecified]Onset: 67-53-9549MrorsniIsgjefmbc hypertension (20 sources)Hypertensive disorder; Translations: [Essential (primary) hypertension]Onset: 988778-30-6343ZbszdrdIpdnwsvomjxtf symptoms and ill- defined conditions (20 sources)Microscopic hematuria; Translations: [Nocturia]37-16-3012Xkqtdzvm Comment on above:Problem List clean-up per request of Phys. EHR CmteHeadache; including migraine (20 sources)Migraine; Translations: [Migraine, unspecified, not intractable, without status migrainosus]Onset: 156692-42-9618FjsojzeQmqmvxl on above: Problem List clean-up per request of Phys. EHR CmteHeadache; including migraine (14 sources)Headache; Translations: [Headache, unspecified]Onset: 01-31-2023 62-80-9846LfbdlhjcGemnzvocadc (1 source)Hemorrhoids; Translations: [Unspecified hemorrhoids]Onset: 07-14-2022 EpisodicHypertension complicating ; childbirth and the puerperium (20 sources)Hypertension complicating ; Translations: [Unspecified maternal hypertension, unspecified trimester]Onset: hronic Hypertension complicating ; childbirth and the puerperium (16 sources)Severe pre-eclampsia complicating childbirth; Translations: [Severe pre-eclampsia, third trimester]Onset: 65-80-9208OuxmzdrqByfms disorders and dislocations; trauma-related (20 sources)Disorder of left patellofemoral joint; Translations: [Patellofemoral disorders, left knee]Onset: 592942-13-2134HrtuavxMqxcx disorders and dislocations; trauma-related (20 sources)Disorder of right patellofemoral joint; Translations: [Patellofemoral disorders, right knee]Onset: hronic Menstrual disorders (20 sources)Dysmenorrhea; Translations: [Dysmenorrhea, unspecified]Onset: 371057-45-8720LlhpdiyDrtiei and vomiting (1 source)Nausea and vomiting; Translations: [Nausea with vomiting, unspecified] EpisodicNonspecific chest pain (2 sources)Chest pain; Translations: [Chest pain, unspecified]60-72-1303Zfgqiffg Comment on above:Problem List clean-up per request of Phys. MIKAYLA CmteNutritional deficiencies (20 sources)Vitamin D deficiency; Translations: [Vitamin D deficiency, unspecified]Onset: 524065-68-6910EovvbtpNvnlr acquired deformities (20 sources)Scoliosis deformity of spine; Translations: [Scoliosis, unspecified] Onset: 103392-08-2061ZchnubuIvyvg bone disease and musculoskeletal deformities (10 sources)Disorder of yllk85-82-6183DnekqxbmYpoqxjj on above:right shoulder right shoulderOther circulatory disease (1 source)Elevated blood-pressure reading without diagnosis of hypertension; Translations: [Elevated blood-pressure reading, without diagnosis of hypertension]Onset: 26-00-7559PzavxemaZkvvv complications of ; puerperium affecting management of mother (1 source)Delayed AND/OR secondary hemorrhage; Translations: [Delayed and secondary hemorrhage]Onset: 23-73-2317UbapwubyGxlpc complications of (1 source)Finding related to ; Translations: [Other specified related conditions, unspecified trimester]Onset: 52-81-6498SejkpqusQtsmu complications of (1 source)Supervision of with other poor reproductive or obstetric history, unspecified trimester; Translations: [Supervision of with other poor reproductive or obstetric history, unspecified trimester]Onset: 66-61-2540AntlnnvvXlour connective tissue disease (1 source)Diastasis recti; Translations: [Separation of muscle (nontraumatic), other site]EpisodicOther female genital disorders (10 sources)Abnormal uterine bodbdook54-23-6626ZyvqhoqSzmzf female genital disorders (1 source)Dyspareunia; Translations: [Other specified dyspareunia]ChronicOther female genital disorders (20 sources)Pain in female genitalia on intercourse; Translations: [Unspecified dyspareunia]Onset: 141616-78-1971CbtpoeaDpxus female genital disorders (1 source)Unspecified dyspareunia; Translations: [Unspecified dyspareunia]Onset: 34-95-8613RaparmwQcqjq female genital disorders (2 sources)Pelvic floor dysfunction; Translations: [Other specified conditions associated with female genital organs and menstrual cycle]EpisodicOther gastrointestinal disorders (18 sources)Constipation; Translations: [Constipation, unspecified]Onset: 040125-32-1702AmihyxmzLigwuod on above:Problem List clean-up per request of Phys. EHR CmteOther gastrointestinal disorders (1 source)Constipation, unspecified; Translations: [Constipation, unspecified] Onset: 59-95-1750SeffcvvlOooro hereditary and degenerative nervous system conditions (20 sources)Finding of scapular structure; Translations: [Other specified extrapyramidal and movement disorders]Onset: 471470-19-0430KxyokuiHawqz nervous system disorders (9 sources)Chronic pain; Translations: [Other chronic pain]Onset: 03-29-2023 32-08-1271VrqyytpWigtf nervous system disorders (1 source)Other chronic pain; Translations: [Chronic pelvic pain in female] Onset: 12-40-7842YnyoxjqLtyoi nervous system disorders (1 source)Paresthesia of left upper limb; Translations: [Paresthesia of skin] 82-16-7711TggulojyOywbyzk on above:Problem List clean-up per request of Phys. EHR CmteOther nervous system disorders (1 source)Tremor; Translations: [Tremor, unspecified]77-88-2262YshhppfiIobfcrw on above:Problem List clean-up per request of Phys. EHR CmteOther nutritional; endocrine; and metabolic disorders (20 sources)Body mass index 30+ - obesity; Translations: [Obesity, unspecified] Onset: 240422-92-1924DrfvrtsVotnt and delivery including normal (18 sources); Translations: [Encounter for supervision of normal , unspecified, unspecified trimester]71-01-6262JljuqzfyPmzsr screening for suspected conditions (not mental disorders or infectious disease) (8 sources)Elevated liver enzymes level; Translations: [Other specified abnormal findings of blood chemistry]Onset: 04-18-2022 Resolved: 27-64-9760IlthcyvpAzlij upper respiratory disease (20 sources)Allergic rhinitis due to pollen; Translations: [Allergic rhinitis due to pollen]Onset: 280307-98-3877HwjfkvfBgpav upper respiratory infections (2 sources)Sinusitis; Translations: [Chronic sinusitis, unspecified]06-22-2025 ChronicResidual codes; unclassified (2 sources)Contraception ; Translations: [Other specified health status] 43-48-9162NojxrteaIricmxlj codes; unclassified (2 sources)Gestation period, 13 weeks; Translations: [13 weeks gestation of ]74-57-4967JkqdwyvtZnafcyaa codes; unclassified (2 sources)Gestation period, 17 weeks; Translations: [17 weeks gestation of ]07-97-9970VlkwnzawVjxivavl codes; unclassified (2 sources)Gestation period, 20 weeks; Translations: [20 weeks gestation of ]44-92-1656XukcrijnUeywwexq codes; unclassified (2 sources)Gestation period, 24 weeks; Translations: [24 weeks gestation of ]39-89-6955PdiowzllYbilpkwa codes; unclassified (2 sources)Gestation period, 26 weeks; Translations: [26 weeks gestation of ]78-46-1224AmfpebroGzsfmmzz codes; unclassified (2 sources)Gestation period, 27 weeks; Translations: [27 weeks gestation of ]23-42-5043RfprnpuhJjasjncb codes; unclassified (1 source)Gestation period, 28 weeks; Translations: [28 weeks gestation of ]50-94-1362NscokhswXnordebi codes; unclassified (1 source)28 weeks gestation of ; Translations: [28 weeks gestation of ]Onset: 63-30-1599HjuuqdsqQsfwnxlc codes; unclassified (2 sources)Gestation period, 29 weeks; Translations: [29 weeks gestation of ]30-42-9414WadjzqgcCargitht codes; unclassified (2 sources)Gestation period, 31 weeks; Translations: [31 weeks gestation of ]09-19-8733PraergavRsxorbgybwy; intervertebral disc disorders; other back problems (20 sources)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; Translations: [Other cervical disc displacement, unspecified cervical region] Onset: 906469-78-2693KdchlgfBsuoaxbcixfe (1 source)MFM consultOnset: 03-38-3730Mchqcpmlwvft (1 source)Gestational DiabetesOnset: 88-80-1331Rhaxopx tract infections (20 sources)Recurrent urinary tract infection; Translations: [Urinary tract infection, site not specified]Onset: 247041-83-9071Bgasawlw Past or Other Problems Problem ClassificationProblemDateDocumented DateEpisodic/ChronicAbdominal pain (20 sources)Epigastric pain; Translations: [Epigastric pain]Onset: 07-14-2022 EpisodicAcquired foot deformities (20 sources)Acquired equinus deformity of foot; Translations: [Other acquired deformities of unspecified foot]Onset: 427608-98-4815TexzdqwuXvefslj dysrhythmias (20 sources)Tachycardia; Translations: [Tachycardia, unspecified]Onset: 569328-56-0908RrltnplqKiuuwpjxwsu deficiencies (20 sources)Cobalamin deficiency; Translations: [Deficiency of other specified B group vitamins]Onset: 401863-34-9366CmrsqiiaThoau connective tissue disease (20 sources)Posterior calcaneal exostosis; Translations: [Calcaneal spur, unspecified foot]Onset: 473667-72-4948HmvmgtarFnlcq disorders of stomach and duodenum (20 sources)Gastroparesis syndrome; Translations: [Gastroparesis]Onset: 673635-11-0061JhwjgkcmNwreg female genital disorders (1 source)Other specified conditions associated with female genital organs and menstrual cycle; Translations:[High-tone pelvic floor dysfunction]Onset: 43-89-9835EpeuebfmMvomg female genital disorders (20 sources)Chronic pelvic pain of female; Translations: [Chronic pelvic pain in female]Onset: 446386-27-1966NmzcsihiDeoyi gastrointestinal disorders (20 sources)Swallowing painful; Translations: [Dysphagia, unspecified]Onset: 920422-52-0595NgvmavahFwcbn gastrointestinal disorders (20 sources)Diarrhea; Translations: [Diarrhea, unspecified]Onset: 03-24-2025 34-07-2728SjhkhmskMlgnr non-traumatic joint disorders (20 sources)Chronic pain of right upper limb; Translations: [Pain in right shoulder]Onset: 072176-17-9200SalkmocyAivpk nutritional; endocrine; and metabolic disorders (16 sources)Loss of appetite; Translations: [Anorexia]Onset: 05-27-2020 08-47-0892UtyapbokQiayorm (15 sources)Vasovagal syncope; Translations: [Syncope and collapse]Onset: 430387-85-6706JuztbwjbNffkdpxijmat (9 sources)PregnancyOnset: 07-14-2022 Resolved: 245287-99-7684FPUADDR: Highlighted row has been ruled out! Unclassified (1 source)No known active -20-0269 Results Test NameValueInterpretationReference RangeFacilityUS OB BPP W NON-STRESS on 51-89-[place] [address] Ultrasound Report Signed Patient: JUHI GAMA MR#: [id number] : 1995 Acct:[id number] Age/Sex: 30 / F ADM Date: 10/03/25 Loc: US Attending Dr: Steph Keane Ordering Physician: Steph Keane Date of Service: 10/03/25 Procedure(s): US OB BPP w non-stress Accession Number(s): [id number] cc: Steph Keane; KAFTAN,G KENNETH The [address] [address] Patient Name: JUHI GAMA MRN: [facility]:[id number] date: 1995 Sex: F Assigned Patient Location: US Current Patient Location: Accession/Order Number: [id number] Exam Date: 10/03/2025 10:53 Report Date: 10/03/2025 [...] Faria M.D. 10/03/2025 11:36 AM Dictation Location: [place] [address] Electronically authenticated by: [id number] Y Date: 10/03/2025 11:36 Dictated By: Will Faria M.D. Signed By: 10/03/25 1138 DD/ 1136 TD/TT: Meteorology Faculty Member:TBHRadiology, Radiologist, MD - 10/03/2025 [place] [address] Ultrasound Report Signed Patient: JUHI GAMA MR#: [id number] : 1995 Acct:[id number] Age/Sex: 30 / F ADM Date: 10/03/25 Loc: US Attending Dr: Steph Keane Ordering Physician: Steph Keane Date of Service: 10/03/25 Procedure(s): US OB BPP w non-stress Accession Number(s): [id number] cc: Steph Keane; Yomaira BELTRAN [place] [id number] Patient Name: JUHI GAMA MRN: [id number] date: 1995 Sex: F Assigned Patient Location: US Current Patient Location: Accession/Order Number: [id number] Exam Date: 10/03/2025 10:53 Report Date: 10/03/2025 [...] Faria M.D. 10/03/2025 11:36 AM Dictation Location: [place] [address] Electronically authenticated by: [id number] Y Date: 10/03/2025 11:36 Dictated By: Will Faria M.D. Signed By: 10/03/25 1138 DD/ 1136 TD/TT: Meteorology Faculty Member: [facility] HealthcareRadiology Study observation (narrative)NOM[facility] HealthcareUS OB BPP W NON-STRESSOrdered By: Radiologist Radiology on 38-06-4154[facility] Work Phone: Urinalysis macro (dipstick) panel (U)on 09-30-2025 Bilirubin, UANegativeNegative - 4(70) +++ mg/dLNOMS HealthcareBlood, UANegative Negative - 50 Teodoro/mcLNOMS HealthcareClarity, UAClearNOMS HealthcareColor, UA YellowNOWY HealthcareGlucose, UANegativeNegative - 2000(110) ++++ mg/dLNOWY HealthcareInterpretation and review of laboratory resultsNormalNOPemiscot Memorial Health Systems Ketones, UANegativeNegative - 160(16) ++++ mg/dLNOWY HealthcareLeukocytes, UA NegativeNegative - 500+++ Robinson/mcLNOWY HealthcareNitrite, UANegativeNegative - PositiveNOWY HealthcarepH, UA6.05 - 9NOWY HealthcareProtein, UANegativeNegative - 2000(20) ++++ mg/dLNOWY HealthcareSpec Grav, UA1.0101 - 1.03NOWY Healthcare Urobilinogen, UA1.00.2 - 12 mg/dLNOGeneral [facility] HealthcareUS OB BPP W NON-STRESSon 26-76-2257[place] [address] Ultrasound Report Signed Patient: JUHI GAMA MR#: [id number] : 1995 Acct:[id number] Age/Sex: 30 / F ADM Date: 09/26/25 Loc: US Attending Dr: Steph Keane Ordering Physician: Steph Keane Date of Service: 09/26/25 Procedure(s): US OB BPP w non-stress Accession Number(s): [id number] cc: Stehp Keane; Yomaira BELTRAN [place] [id number] Patient Name: JUHI GAMA MRN: [id number] date: 1995 Sex: F Assigned Patient Location: Current Patient Location: Accession/Order Number: [id number] Exam Date: 09/26/2025 11:50 Report Date: 09/26/2025 14:50 At the request of: STEPH KEANE Procedure: US OB BPP w non-stress Ultrasound biophysical profile INDICATION: -induced hypertension COMPARISON: 09/19/2025 FINDINGS IMPRESSION: Cephalic position. 8 out of 8 score biophysical profile. LEONEL 11.6 cm. heart 129 bpm Impression dictated by: Chu Amaya M.D. 09/26/2025 2:50 PM Dictation Location: [facility]IO-PC-29 Electronically authenticated by: [id number] Y Date: 09/26/2025 14:50 Dictated By: Chu Amaya M.D. Signed By: 09/26/25 1452 DD/ 49 TD/TT: Meteorology Faculty Member:TBHRadiology, Radiologist, - 09/26/2025 [place] [address] Ultrasound Report Signed Patient: JUHI GAMA MR#: [id number] : 1995 Acct:[id number] Age/Sex: 30 / F ADM Date: 09/26/25 Loc: US Attending Dr: Steph Keane Ordering Physician: Steph Keane Date of Service: 09/26/25 Procedure(s): US OB BPP w non-stress Accession Number(s): [id number] cc: Le Keane [address] [address] Patient Name: JUHI GAMA MRN: [facility]:[id number] date: 1995 Sex: F Assigned Patient Location: Current Patient Location: Accession/Order Number: [id number] Exam Date: 09/26/2025 11:50 Report Date: 09/26/2025 14:50 At the request of: STEPH KEANE Procedure: US OB BPP w non-stress Ultrasound biophysical profile INDICATION: -induced hypertension COMPARISON: 09/19/2025 FINDINGS IMPRESSION: Cephalic position. 8 out of 8 score biophysical profile. LEONEL 11.6 cm. heart 129 bpm Impression dictated by: Chu Amaya M.D. 09/26/2025 2:50 PM Dictation Location: RADIO-PC-29 Electronically authenticated by: [id number] Y Date: 09/26/2025 14:50 Dictated By: Chu Amaya M.D. Signed By: 09/26/25 145 DD/ 145 TD/TT: Meteorology Faculty Member: LANETTE HealthcareRadiology Study observation (narrative)NOMS HealthcareUS OB BPP W NON-STRESSOrdered By: Radiologist Radiology on 34-56-4876[facility] Work Phone: US OB BPP W NON-STRESSon 11-35-4627[place], [place] [address] Ultrasound Report Signed Patient: JUHI GAMA MR#: [id number] : 1995 Acct:[id number] Age/Sex: 30 / F ADM Date: 09/19/25 Loc: US Attending Dr: Steph Keane Ordering Physician: Steph Keane Date of Service: 09/19/25 Procedure(s): US OB BPP w non-stress Accession Number(s): [id number] cc: Steph Keane; Yomaira BELTRAN [place] [id number] Patient Name: JUHI GAMA MRN: [id number] date: 1995 Sex: F Assigned Patient Location: [facility] Current Patient Location: Accession/Order Number: [id number] Exam Date: 09/19/2025 10:06 Report Date: 09/19/2025 [...] Morillo M.D. 09/19/2025 12:17 PM Dictation Location: [employer] [place] Electronically authenticated by: [id number] Y Date: 09/19/2025 12:17 Dictated By: Jp Morillo D.O. Signed By: 09/19/25 1219 DD/ 16 TD/TT: Meteorology Faculty Member:SATNAMadiolRandell malagon, - 09/19/2025 [address] [place] [id number] Ultrasound Report Signed Patient: JUHI GAMA MR#: [id number] : 1995 Acct:[id number] Age/Sex: 30 / F ADM Date: 09/19/25 Loc: US Attending Dr: Steph Keane Ordering Physician: Steph Keane Date of Service: 09/19/25 Procedure(s): US OB BPP w non-stress Accession Number(s): [id number] cc: Steph Keane; Yomaira BELTRAN [place] [phone] Patient Name: JUHI GAMA MRN: [facility]:[id number] date: 1995 Sex: F Assigned Patient Location: [facility] Current Patient Location: Accession/Order Number: [id number] Exam Date: 09/19/2025 10:06 Report Date: 09/19/2025 [...] Morillo M.D. 09/19/2025 12:17 PM Dictation Location: [email or web address] Electronically authenticated by: [id number] Y Date: 09/19/2025 12:17 Dictated By: Jp Morillo D.O. Signed By: 09/19/25 1219 DD/ 16 TD/TT: Meteorology Faculty Member: LANETTE HealthcareRadiology Study observation (narrative)NOMS HealthcareUS OB BPP W NON-STRESSOrdered By: Radiologist Radiology on 12-85-2064OKDYC[facility] Work Phone: Urinalysis macro (dipstick) panel (U)on 09-16-2025 Bilirubin, UANegativeNegative - 4(70) +++ mg/dLCox Walnut LawnBlood, UANegative Negative - 50 Teodoro/mcLCox Walnut LawnClarity, UAClearNOWY HealthcareColor, UA YellowNOPemiscot Memorial Health SystemsGlucose, UANegativeNegative - 2000(110) ++++ mg/dLCox Walnut LawnInterpretation and review of laboratory resultsNormalCox Walnut Lawn Ketones, UANegativeNegative - 160(16) ++++ mg/dLCox Walnut LawnLeukocytes, UA NegativeNegative - 500+++ Robinson/[facility]ast[facility] HospitalNitrite, UANegativeNegative - PositiveST. MARK'S HOSPITAL HealthcarepH, UA6.05 - 9NOWY HealthcareProtein, UANegativeNegative - 2000(20) ++++ mg/dLCox Walnut LawnSpec Grav, UA1.0101 - 1.03[facility] Urobilinogen, UA1.00.2 - 12 mg/dLSaint Francis Medical Center HealthcareALL BUNon 83-91-1859Jgez nitrogen [Mass/Vol]8 mg/dL7.0 - 18.0 mg/dLHeartland Behavioral Health Services URIC ACIDon 31-43-5352Yhozs [Mass/Vol]3.5 mg/dL2.6 - 6.0 mg/dLCox Walnut LawnCC ALT on 80-53-5013ZGE [Catalytic activity/Vol]40 U/L14 - 59 U/[facility] FultonCCF AST on 70-51-9158PAJ [Catalytic activity/Vol]24 U/L15 - 37 U/[facility]- FultonNo Panel Informationon 55-53-4768Zdxnflcnebyxkk and review of laboratory results AbnormalNOPemiscot Memorial Health SystemsCLINISYNCNUniversity of Missouri Children's HospitalTB CREATININEon 09-03-2025 Creatinine [Mass/Vol]0.42 mg/dLLow0.55 - 1.02 mg/dLCox Walnut LawnGFR/1.73 sq M.predicted CKD-EPI (S/P/Bld) [Vol rate/Area]>60>=60 mL/min/1.73m 2NUniversity of Missouri Children's HospitalTB EGFR-NON AF MACEDONIAN>60>=60 mL/min/1.73m 2NOMS HealthcareTB URINE T PROTEIN CREAT RATIOon 75-56-5792HHPHHHSANK URINE RANDOM<13.33Fiz25.00 - 300.00 mg/dLNOWY HealthcareTOTAL PROTEIN URINE RANDOM<6.0NINF - 11.9 mg/dLST. MARK'S HOSPITAL HealthcareUrinalysis macro (dipstick) panel (U)on 25-44-7068Rqvjlwwbx, UA NegativeNegative - 4(70) +++ mg/dLST. MARK'S HOSPITAL HealthcareBlood, UANegativeNegative - 50 Teodoro/mcLST. MARK'S HOSPITAL HealthcareClarity, UAClearNOWY HealthcareColor, UAYellowNOWY HealthcareGlucose, UANegativeNegative - 2000(110) ++++ mg/dLST. MARK'S HOSPITAL Healthcare Interpretation and review of laboratory resultsNormalST. MARK'S HOSPITAL HealthcareKetones, UA NegativeNegative - 160(16) ++++ mg/dLST. MARK'S HOSPITAL HealthcareLeukocytes, UANegative Negative - 500+++ Robinson/[facility]ast[facility] Carolina HospitalNitrite, UANegativeNegative - Positive NOM HealthcarepH, UA6.55 - 9NOWY HealthcareProtein, UANegativeNegative - 2000(20) ++++ mg/dLST. MARK'S HOSPITAL HealthcareSpec Grav, UA1.0051 - 1.03NOWY Healthcare Urobilinogen, UA2.00.2 - 12 mg/dLAtrium Health University CityTB TOTAL PROTEIN 24 HOUR URINEon 83-80-3967Smjgqnvjszdatd and review of laboratory results AbnormalNOWY HealthcareProtein (U) [Mass/Vol]22.6 mg/dLHighNINF - 11.9 mg/dLCox Walnut LawnTB TOTAL PROTEIN 24 HOUR KKJIP260.6NINFNOPemiscot Memorial Health SystemsTOTAL VOLUME 24 HOUR EPOPW597zQ/24hrNOWY HealthcareCLINISYNCNJIM TALIAFERRO [facility] HealthcareALL CBC WITH AUTO DIFFon 28-80-9224JRWGLKAEI ABSOLUTE AUTO0.1NOMS HealthcareBasophils/100 WBC (Bld)0.5 %0.2 - 2.0 %NOMS HealthcareEosinophils/100 WBC (Bld)1.4 %0.9 - 7.0 % [facility] HealthcareErythrocyte distribution width (RBC) [Ratio]13 %11.0 - 15.0 %[facility] HealthcareHematocrit (Bld) [Volume fraction]34.4 %Low36.0 - 48.0 %[facility] LawnHemoglobin (Bld) [Mass/Vol]11.3 g/dLLow12.0 - 16.0 g/dLCox Walnut Lawn IMMATURE GRANULOCYTES ABS AUTO0.59HighNOWY HealthcareImmature granulocytes/100 WBC (Bld)4.4 %High0.0 - 0.5 %[facility] LawnInterpretation and review of laboratory resultsAbnormalNOWY HealthcareLYMPHOCYTES ABSOLUTE AUTO2.4NOWY HealthcareLymphocytes/100 WBC (Bld)17.8 %Low20.5 - 60.0 %[facility] HospitalH (RBC) [Entitic mass]29.4 pg26.7 - 34.0 pgNOHarry S. Truman Memorial Veterans' HospitalHC (RBC) [Mass/Vol] 32.8 g/dL29.9 - 35.2 g/dLCox Walnut LawnMCV (RBC) [Entitic vol]89.4 fL81.0 - 99.0 fLCox Walnut LawnMONOCYTES ABSOLUTE AUTO1.1HighNOWY HealthcareMonocytes/100 WBC (Bld)8.1 %1.7 - 12.0 %[facility] LawnNEUTROPHILS ABSOLUTE GMDL5QhikCWKR HealthcareNeutrophils/100 WBC (Bld)67.8 %43.0 - 75.0 %[facility] Walnut LawnPlatelet mean volume (Bld) [Entitic vol]9.6 fL9.5 - 13.5 fLCox Walnut LawnTBH EO #0.2NOMS [facility]tering Health PrebleTB OVK340QZYW [facility] RBC3.85LowNOMS [facility] WBC13.3High [facility] LawnCLINISYNMcLeod Health SeacoastTB URINE T PROTEIN CREAT RATIOon 29-82-6270WMULFCNUOO URINE RANDOM<13.98Lcb89.00 - 300.00 mg/dLCox Walnut Lawn Interpretation and review of laboratory resultsAbnormalCox Walnut LawnTOTAL PROTEIN URINE RANDOM<6.0NINF - 11.9 mg/dLCox Walnut LawnCLINISYNMcLeod Health Seacoast US OB BPP W NON-STRESSon 06-05-[address] [address] Ultrasound Report Signed Patient: JUHI GAMA MR#: [id number] : 1995 Acct:[id number] Age/Sex: 30 / F ADM Date: Loc: [facility] 250-[address]: KUNAL HYATT M.D. Ordering Physician: Steph Keane Date of Service: 08/27/25 Procedure(s): US OB BPP w non-stress Accession Number(s): [id number] cc: Steph Keane; Yomaira BELTRAN [place] [address] Patient Name: JUHI GAMA MRN: [facility]:[id number] date: 1995 Sex: F Assigned Patient Location: LAB Current Patient Location: LAB Accession/Order Number: [id number] Exam Date: 08/27/2025 17:37 Report Date: 08/27/2025 [...] Morillo M.D. 08/27/2025 6:02 PM Dictation Location: [place] [address] Electronically authenticated by: [id number] Y Date: 08/27/2025 18:02 Dictated By: Jp Morillo D.O. Signed By: 08/27/251804 DD/ 01 TD/TT: Meteorology Faculty Member:SATNAMadiology, Radiologist, MD - 08/27/2025 [place] [address] Ultrasound Report Signed Patient: JUHI GAMA MR#: [id number] : 1995 Acct:[id number] Age/Sex: 30 / F ADM Date: Loc: [facility] 250-[address]: KUNAL HYATT M.D. Ordering Physician: Steph Keane Date of Service: 08/27/25 Procedure(s): US OB BPP w non-stress Accession Number(s): [id number] cc: Steph Keane; Yomaira BELTRAN [place] [phone] Patient Name: JUHI GAMA MRN: [facility]:[id number] date: 1995 Sex: F Assigned Patient Location: LAB Current Patient Location: LAB Accession/Order Number: [id number] Exam Date: 08/27/2025 17:37 Report Date: 08/27/2025 [...] Morillo M.D. 08/27/2025 6:02 PM Dictation Location: [place] [address] Electronically authenticated by: [id number] Y Date: 08/27/2025 18:02 Dictated By: Jp Morillo D.O. Signed By: 08/27/251804 DD/ 01 TD/TT: Meteorology Faculty Member: LANETTE HealthcareRadiology Study observation (narrative)NOMShalonda SmallUS OB BPP W NON-STRESSOrdered By: Radiologist Radiology on 07-82-6081[facility] Work Phone: Urinalysis macro (dipstick) panel (U)on 08-27-2025 Bilirubin, UANegativeNegative - 4(70) +++ mg/dLNOMS HealthcareBlood, UANegative Negative - 50 Teodoro/mcLNOMS HealthcareClarity, UAClearNOMS HealthcareColor, UA YellowNOMS HealthcareGlucose, UANegativeNegative - 2000(110) ++++ mg/dLNOMS HealthcareInterpretation and review of laboratory resultsNormalCox Walnut Lawn Ketones, UANegativeNegative - 160(16) ++++ mg/dLST. MARK'S [facility]OSPITAL HealthcareLeukocytes, UA NegativeNegative - 500+++ Roibnson/mcLNOWY HealthcareNitrite, UANegativeNegative - PositiveNOWY HealthcarepH, UA65 - 9NOWY HealthcareProtein, UANegativeNegative - 2000(20) ++++ mg/dLST. MARK'S [facility]OSPITAL HealthcareSpec Grav, UA1.0151 - 1.03NOWY Healthcare Urobilinogen, UA2.00.2 - 12 mg/dLNOWY HealthcareNOWY HealthcareURINE CULTURE, ROUTINEon 42-94-5009Ullnwtqt identified Cx Nom (U) Urine Culture, Routine NOMS HealthcareBacteria identified Cx Nom (U)Mixed urogenital floraNOWY HealthcareBacteria identified Cx Nom (U)25,000-50,000 colony forming units per mLNOMS HealthcareBacteria identified Cx Nom (U)Performed at: - [facility] NOMS HealthcareBacteria identified Cx Nom (U)[address] [place] [address] [id number] HealthcareBacteria identified Cx Nom (U)Image Assembler: Cm Sandoval PhD, Phone: [phone] HealthcareCLINISYNDALE GENERAL [facility]ITAL Swcltlcgar1va hr Glucose Tolerance 100 gm loadon 13-28-9311Laxahaa Tolerance Test 2 Dqdw298 [facility] Medical CenterCapillary Glucose POCon 90-47-2920Blacujp [Mass/Vol]88 mg/tXOtoxci93-90PadhjiOhio State Health SystemComment on above:Performed By: #### [id number] #### [facility] [address], [place] [address]Xgc 1 Hron 52-34-8269Votrift [Mass/Vol]152 mg/sVCnpmsz29-944 [facility] SystemComment on above:Performed By: #### [id number] #### [facility] [address], [place] [address]Uiv 2 Hron 88-75-6448Fqjdjfv [Mass/Vol]169 mg/cTDccg81-120 [facility] SystemComment on above:Performed By: #### [id number] #### [facility] [address], [place] [address]Guw 3 Hron 74-75-1596Ddpnsou [Mass/Vol]141 mg/lAFvze00-141 [facility] SystemComment on above:Performed By: #### [id number] #### [facility] [address], [place] [address]Xbr Fastingon 10-99-1428Dcgshmw [Mass/Vol]82 mg/qWFetxng89-86 [facility] SystemComment on above:Performed By: #### [id number] #### [facility] [address], [place] [address]Tkqkpgx tolerance, 1 houron 34-62-3986Wugukbl Tolerance Test 1 Ohfp504IstYyhbul Health SystemGlucose tolerance, 3 hourson 51-80-5490Hwuuyms Tolerance Test 3 Mnow655GctTawszl Health SystemGlucose, tolerance fastingon 20-81-1498Vwzzctw Tolerance Test Zbdtwis99XtnJffwfh Health SystemNo Panel Informationon 65-06-8087NspNysatcUniversity Hospitals Lake West Medical CenterCBC w/ Auto Diffon 08-12-2025 Basophil Absolute0.1 E9/LNormal0.0-0.2[facility] Agnes HospitalComment on above:Performed By: #### [id number] #### [facility] [address] [place] [address]Dpvfgefim/100 WBC (Bld)0.6 %Normal0.0-2.0[facility] Health SystemComment on above:Performed By: #### [id number] #### [facility] [address], [place] [address]Ouh Absolute0.1 E9/LNormal0.0-0.5[facility] Comment on above:Performed By: #### [id number] #### [facility] [address] [place] [address]Ehtghmkiivf/100 WBC (Bld)1.0 %Normal0.0-8.0[facility] Health SystemComment on above:Performed By: #### [id number] #### [facility] [address], [place] [address]Zrcxjgtzxbl distribution width (RBC) [Ratio]12.9 %Normal 10.9-14.2FThe University of Toledo Medical CenterComment on above:Performed By: #### [id number] #### [facility] [address], [place] [address]Zhtxgbzbzu (Bld) [Volume fraction]33.1 %Low34.0-46.0[facility] Health SystemComment on above:Performed By: #### [id number] #### [facility] [address], [place] [address]Rifhlsmfzc (Bld) [Mass/Vol]11.4 g/dLLow12.0-16.0[facility] Health SystemComment on above:Performed By: #### [id number] #### [facility] [address] [place] [address]Fyboz Absolute2.0 E9/LNormal1.0-4.0[facility] Comment on above:Performed By: #### [id number] #### [facility] [address], [place] [address]Oxjbvbzrqli/100 WBC (Bld)19.6 %Vhqxyy64.0-50.0[facility] Health SystemComment on above:Performed By: #### [id number] #### [facility] [address], [place] [address]CBX (RBC) [Entitic mass]29.9 nmXsiujc88.0-34.0[facility] Health SystemComment on above:Performed By: #### [id number] #### [facility] [address], [place] [address]LYBH (RBC) [Mass/Vol]34.4 g/nYRsqfde55.4-36.0[facility] SystemComment on above:Performed By: #### [id number] #### [facility] [address], [place] [address]RRO (RBC) [Entitic vol]86.7 vURlbdxm85.0-100.0[facility] Health SystemComment on above:Performed By: #### [id number] #### [facility] [address], [place] [address]Ainb Absolute0.5 E9/LNormal0.2-1.0[facility] Comment on above:Performed By: #### [id number] #### [facility] [address], [place] [address]Gchbebegx/100 WBC (Bld)4.6 %Normal4.0-14.0[facility] Health SystemComment on above:Performed By: #### [id number] #### [facility] [address], [place] [address]Ltizzz Absolute7.5 E9/LNormal2.0-7.5FThe University of Tol[facility] Medical Center Comment on above:Performed By: #### [id number] #### [facility] [address] [place] [address]Tjjqiz Auto74.2 %Znvmwd66.0-75.0[facility] Comment on above:Performed By: #### [id number] #### [facility] [address] [place] [address]Xbrfyvsy518.0 E9/MZikpwx668.0-500.0[facility] Comment on above:Performed By: #### [id number] #### [facility] [address] [place] [address]Wxtsjzuc mean volume (Bld) [Entitic vol]8.1 fLNormal6.4-10.8 [facility] SystemComment on above:Performed By: #### [id number] #### [facility] [address], [place] [address]GIC8.8 E12/LLow4.3-5.9[facility] SystemComment on above:Performed By: #### [id number] #### [facility] [address] [place] [address]ZGZ33.1 E9/LNormal4.0-11.0[facility] SystemComment on above:Performed By: #### [id number] #### [facility] [address], [place] [address]Wcqemqyqzj 29-09-0550Qqqbksrn Lvl7 ng/nWXgh68-013EkewbuOhio State Health SystemComment on above:Performed By: #### [id number] #### [facility] [address], [place] [address]Rqfihfbs 15-18-9437Mgyzuq Lvl>22.3Normal>=6.7FThe University of Toledo Medical CenterComment on above:Performed By: #### [id number] #### [facility] [address], [place] [address]Pjtj Scr Glu 1 Hron 99-68-8534Ugmgbey [Mass/Vol]155 mg/dLHigh 55-140Ohio State Health SystemComment on above:Performed By: #### [id number] #### [facility] [address] [place] [address]Jzozqar 1h post 50g loadon 51-57-2191Cajryiq, 1 hr PP 50GM dose 155ProMedica Health SystemIronon 77-46-1778Fpof21 microgram/rCTkxzvb66-369JszscgOhio State Health SystemComment on above:Performed By: #### [id number] #### [facility] [address], [place] [address]Sv Panel Informationon 87-07-1829YMLJ HealthcareTIBC Calculated on 11-68-9996HTRE244 microgram/sDReki028-886HczrcaOhio State Health SystemComment on above:Performed By: #### [id number] #### [facility] [address], [place] [address]Aqnsvlbawlv [Mass/Vol]455 mg/eILnae620-967HxvbwvOhio State Health SystemComment on above:Performed By: #### [id number] #### [facility] [address], [place] [address]RL OB LIMITED 1+ FETUSESon 72-59-0944MF OB LIMITED 1+ FETUSES FINDINGS: Single viable [...] Delivery: 11/28/25 Gestational Age as of 07/21/2025: 98h8kTyfrurcgds macro (dipstick) panel (U)on 13-55-2429Lbwvsqyxy, UANegativeNegative - 4(70) +++ mg/dLNOMS HealthcareBlood, UANegativeNegative [...] HealthcareUrobilinogen, UA1.00.2 - 12 mg/dLNOMS HealthcareVit B12on 60-66-7560Yfelkjgwt (Vitamin B12) [Mass/Vol]205 pg/iWUwbnqz73-0593Aomifu St. Agnes HospitalComment on above:Performed By: #### [id number] #### [facility] [address], [place] [address]NTH w/ Auto Diffon 26-18-3415Otpzhxgf Absolute0.0 E9/LNormal 0.0-0.2[facility] Agnes HospitalComment on above:Performed By: #### [id number] #### [facility] [address], [place] [address]Txfzhicrz/100 WBC (Bld)0.2 %Normal0.0-2.0[facility] Health SystemComment on above:Performed By: #### [id number] #### [facility] [address] [place] [address]Icr Absolute0.1 E9/LNormal0.0-0.5FThe University of [facility] Medical Center Comment on above:Performed By: #### [id number] #### [facility] [address], [place] [address]Hqhbhgrzxhj/100 WBC (Bld)0.5 %Normal0.0-8.0[facility] Health SystemComment on above:Performed By: #### [id number] #### [facility] [address] [place] [address]Qxfutctkfng distribution width (RBC) [Ratio]13.0 %Normal 10.9-14.2FThe University of Toledo Medical CenterComment on above:Performed By: #### [id number] #### [facility] [address] [place] [address]Fortzepfnn (Bld) [Volume fraction]31.9 %Low34.0-46.0[facility] Health SystemComment on above:Performed By: #### [id number] #### [facility] [address] [place] [address]Ldplrpmwec (Bld) [Mass/Vol]11.1 g/dLLow12.0-16.0[facility] Health SystemComment on above:Performed By: #### [id number] #### [facility] [address] [place] [address]Uhnll Absolute2.1 E9/LNormal1.0-4.0[facility] Comment on above:Performed By: #### [id number] #### [facility] [address], [place] [address]Nyzmpoawads/100 WBC (Bld)16.2 %Upyqid94.0-50.0[facility] Health SystemComment on above:Performed By: #### [id number] #### [facility] [address], [place] [address]WNW (RBC) [Entitic mass]29.9 wuNezweu84.0-34.0[facility] SystemComment on above:Performed By: #### [id number] #### [facility] [address] [place] [address]HVYU (RBC) [Mass/Vol]34.8 g/qRZbxwgk82.4-36.0[facility] SystemComment on above:Performed By: #### [id number] #### [facility] [address] [place] [address]NCQ (RBC) [Entitic vol]85.7 aHBrmzsm01.0-100.0[facility] Health SystemComment on above:Performed By: #### [id number] #### [facility] [address] [place] [address]Pyfw Absolute0.9 E9/LNormal0.2-1.0[facility] Comment on above:Performed By: #### [id number] #### [facility] [address] [place] [address]Rkjrefbna/100 WBC (Bld)7.0 %Normal4.0-14.0[facility] Health SystemComment on above:Performed By: #### [id number] #### [facility] [address] [place] [address]Kylakq Absolute9.7 E9/LHigh2.0-7.5[facility] Comment on above:Performed By: #### [id number] #### [facility] [address] [place] [address]Hzyhpj Auto76.1 %High36.0-75.0[facility] Comment on above:Performed By: #### [id number] #### [facility] [address] [place] [address]Ikfhnscu508.0 E9/GKowmpr479.0-500.0[facility] Comment on above:Performed By: #### [id number] #### [facility] [address], [place] [address]Oimavfif mean volume (Bld) [Entitic vol]8.0 fLNormal6.4-10.8 [facility] SystemComment on above:Performed By: #### [id number] #### [facility] [address], [place] [address]MGG9.7 E12/LLow4.3-5.9[facility] SystemComment on above:Performed By: #### [id number] #### [facility] [address], [place] [address]YXG40.8 E9/LHigh4.0-11.0[facility] SystemComment on above:Performed By: #### [id number] #### [facility] [address], [place] [address]PEQin 24-05-5716XT4 [Moles/Vol]20 mmol/XXbx98-70RenbzdOhio State Health SystemComment on above:Performed By: #### [id number] #### [facility] [address], [place] [address]Hxloq gap [Moles/Vol]16 mmol/LNormal6-16[facility] Health SystemComment on above:Performed By: #### [id number] #### [facility] [address], [place] [address]Syzdszv [Mass/Vol]3.8 g/dLNormal3.3-5.0[facility] SystemComment on above:Performed By: #### [id number] #### [facility] [address], [place] [address]Ctjwywy/Globulin [Mass ratio]1.3 {ratio}Normal1.1-2.2FThe University of Toledo Medical CenterComment on above:Performed By: #### [id number] #### [facility] [address], [place] [address]Dlz Phos78 Int._Unit/DJafysk66-19OjmctxOhio State Health System Comment on above:Performed By: #### [id number] #### [facility] [address], [place] [address]WCR89 Int._Unit/LNormal6-46[facility] Health SystemComment on above:Performed By: #### [id number] #### [facility] [address], [place] [address]CBE16 Int._Unit/LNormal5-43[facility] Health SystemComment on above:Performed By: #### [id number] #### [facility] [address], [place] [address]Urtw Total0.8 mg/dLNormal0.0-1.1FThe University of [facility] Center Comment on above:Performed By: #### [id number] #### [facility] [address], [place] [address]XSN/Creat Ratio18 No XqdomIxgiot80-61NoyzjcOhio State Health SystemComment on above:Performed By: #### [id number] #### [facility] [address], [place] [address]Eaxywtg [Mass/Vol]8.9 mg/dLNormal8.9-11.1FThe University of Toledo Medical CenterComment on above:Performed By: #### [id number] #### [facility] [address], [place] [address]Ovfrcqon [Moles/Vol]104 mmol/RPysxcs672-358BqmzcnOhio State Health SystemComment on above:Performed By: #### [id number] #### [facility] [address], [place] [address]Svqphjpkhi [Mass/Vol]0.6 mg/dLNormal0.5-1.3FThe University of Toledo Medical CenterComment on above:Performed By: #### 7373531 #### [facility] [address], [place] [address]Zivebhkp (S) [Mass/Vol]3.0 g/dLNormal1.4-4.0[facility] State Health SystemComment on above:Performed By: #### [id number] #### [address] [facility] [address], [place] [address]Tineexy [Mass/Vol]92 mg/ySEllewy72-844NucwtvOhio State Health SystemComment on above:Performed By: #### [id number] #### [facility] [address], [place] [address]Umswbhxvr [Moles/Vol]3.7 mmol/LNormal3.5-5.3FThe University of Toledo Medical CenterComment on above:Performed By: #### [id number] #### [facility] [address], [place] [address]Camahha [Mass/Vol]6.8 g/dLNormal6.0-7.8Ohio State Health SystemComment on above:Performed By: #### [id number] #### [facility] [address], [place] [address]Bavako [Moles/Vol]136 mmol/ROpribe981-220AequfdOhio State Health SystemComment on above:Performed By: #### [id number] #### [facility] [address], [place] [address]Zskm nitrogen [Mass/Vol]11 mg/dLNormal5-21Ohio State Health SystemComment on above:Performed By: #### [id number] #### [facility] [address], [place] [address]Llmml Panelon 38-39-8285Lyhzssdynod [Mass/Vol]239 mg/dLHigh 120-200Ohio State Health SystemComment on above:Performed By: #### [id number] #### [facility] [address], [place] [address]Vbbgljeaspm in HDL [Mass/Vol]88 mg/dLInvalid Interpretation CodeOhio State Health SystemComment on above:Result Comment: '>= 60 LOW RISK' '<= 40 HIGH RISK'Performed By: #### [id number] #### [facility] [address], [place] [address]Nexybytljgo in LDL [Mass/Vol]144 mg/dLHigh<=129Ohio State Health SystemComment on above:Performed By: #### [id number] #### [facility] [address] [place], [place] [address]Xeutcglaqfi in VLDL [Mass/Vol]40 mg/dLNormal7-40Ohio State Health SystemComment on above:Performed By: #### [id number] #### [facility] [address], [place] [address]Wnkggskgiyhb [Mass/Vol]202 mg/dLHigh<=149Ohio State Health SystemComment on above:Performed By: #### [id number] #### [facility] [address] [facility] [place], [place] [address]fOXGhm 13-26-5913dHLA762 mL/min/1.73 b0Juoyts>=59Ohio State Health SystemComment on above:Performed By: #### [id number] #### [facility] [address], [place] [address]MDI, SERUM, OPEN SPINA BIFIDAon 58-27-7936QEV MOM0.95.[facility] HealthcareAFP VALUE59.2 ng/mL.[facility] HealthcareCOMMENT:Comment.[facility] Healthcare Comment on above:Amy Ramos, Ph.D., [facility] Director References: Available Upon Request. Multiples Of Median Cutoffs For AFP Elevations Hsieh 2.5 Black 2.8 IDD 2.0 Twins 4.5 Abbreviation Definitions IDD - Insulin Dep Diabetes OSBR - Open Spina Bifida Risk For further inquiries contact [facility] at [phone]. This test was developed and its performance characteristics determined by [facility]. It has not been cleared or approved by the Food and Drug Administration. Performed at: [facility], [place] [id number] Image Assembler: Dona Justin [facility], Phone: [phone] GEST. AGE ON COLLECTION DATE20.6. weeksNOMS HealthcareGESTAT. AGE BASED ONLMP. NOMS HealthcareComment on above:Recalculations are not recommended when gestational dating by LMP and ultrasound are within 10 days. INSULIN DEP DIABETESNo.[facility] Wal[facility] LawnINTERPRETATIONComment.[facility] Comment on above:Interpretation: Screen Negative This result [...] Customer Services to discuss available options. The [place] [employer] recommends amniocentesis be offered to women age 35 and older. MATERNAL AGE AT EDD30.7. yrNOWY HealthcareMULTIPLE GESTATIONNo.[facility] OSBR RISK 1 [id number].[facility] LawnRACECaucasian.[facility] LawnRESULTSReport. [facility] LawnTEST RESULTS:Negative.[facility] LawnOdryvahbziUSXGLM474. lbSeattle VA Medical Center HealthcarePREGNANCY N N LMP [id number] 2 17 N 1 Y 146 N N N N N White/ CLINISYNCNOWY HealthcareUS OB 14+ WEEKS ANATOMY SCANon 71-02-9355OP OB 14+ WEEKS ANATOMY SCANEXAM: US OB [...] II, MD, PHD at 16-Jul-2025 08:07:07 AM [facility]eleradiologyNormalNot AvailableComment on above:Order Comment: US OB ANATOMY SINGLE W US OB CERVICAL LENGTH Estimated Date of Delivery: 11/28/25 Gestational Age as of 06/22/2025: 12a1zJfviayrgfe macro (dipstick) panel (U)on 29-34-8027Mqeznmuen, UANegativeNegative - 4(70) +++ mg/dLNOMS HealthcareBlood, UANegativeNegative [...] 12 mg/dLNOMS HealthcareNOMS Healthcare RECURRENT VAGINITIS (HTRX)on 29-47-6054HKFVYWFBQ BDVCIIU5KXEJ Healthcare ATOPOBIUM VAGINAENot detectedNOMS HealthcareBVAB 2,3 (BACTERIAL VAGINOSIS ASSOCIATED BACTERIA 2, 3); MOBILUNCUS HLO6GFOB HealthcareBVAB 2,3 (BACTERIAL VAGINOSIS ASSOCIATED BACTERIA 2, 3); MOBILUNCUS SPPNot detectedNOMS Healthcare RADHA ALBICANS, PARAPSILOSIS, XWIZYJKLWY6GIAB HealthcareCANDIDA ALBICANS, PARAPSILOSIS, TROPICALISNot detectedNOMS HealthcareCANDIDA KTHPWPEJ4JYFU HealthcareCANDIDA GLABRATANot detectedNOMS HealthcareCANDIDA QROBSE9VTCE HealthcareCANDIDA KRUSEINot detectedNOMS HealthcareCHLAMYDIA MIWOZHIQOOY6WANR HealthcareCHLAMYDIA TRACHOMATISNot detectedNOMS HealthcareGARDNERELLA VAGINALIS 17.967AbnormalNOMS HealthcareGARDNERELLA VAGINALISDetectedAbnormalNOWY HealthcareInterpretation and review of laboratory resultsAbnormalNOWY Healthcare MEGASPHAERA (TYPES 1, 2)0NOMS HealthcareMEGASPHAERA (TYPES 1, 2)Not detectedNOMS HealthcareMYCOPLASMA WPAKDPBKBZ2MOFF HealthcareMYCOPLASMA GENITALIUMNot detectedNOMS HealthcareNEISSERIA FEWJXDULLQY0CRVV HealthcareNEISSERIA GONORRHOEAENot detectedNOMS HealthcareTRICHOMONAS WUWYJAVFB8LLCE Healthcare TRICHOMONAS VAGINALISNot detectedNOMS HealthcareNOMS HealthcareUrinalysis macro (dipstick) panel (U)on 24-11-9596Rscbodfma, UANegativeNegative - 4(70) +++ mg/dL NOMS HealthcareBlood, UANegativeNegative - 50 Teodoro/mcLNOMS HealthcareClarity, UA ClearNOMS HealthcareColor, UAYellowNOMS HealthcareGlucose, UANegativeNegative - 2000(110) ++++ mg/dLNOMS HealthcareInterpretation and review of laboratory resultsNormalNOWY HealthcareKetones, UANegativeNegative - 160(16) ++++ mg/dLNOMS HealthcareLeukocytes, UANegativeNegative - 500+++ Robinson/mcLNOMS Healthcare Nitrite, UANegativeNegative - PositiveNOMS HealthcarepH, UA65 - 9NOMS Healthcare Protein, UANegativeNegative - 1999(20) ++++ mg/dLNOMS HealthcareSpec Grav, UA 1.0051 - 1.03NOMS HealthcareUrobilinogen, UA1.00.2 - 12 mg/dLNOWY HealthcareNOWY HealthcareUrinalysis macro (dipstick) panel (U)on 92-09-1779Rhdoqsusy, UA NegativeNegative - 4(70) +++ mg/dLNOWY HealthcareBlood, UANegativeNegative - 50 Teodoro/mcLNOWY HealthcareClarity, UAClearNOMS HealthcareColor, UAYellowNOWY HealthcareGlucose, UANegativeNegative - 2000(110) ++++ mg/dLST. [facility]'S [facility] Healthcare Interpretation and review of laboratory resultsNormalST. MARK'S HOSPITAL HealthcareKetones, UA NegativeNegative - 160(16) ++++ mg/dLST. MARK'S HOSPITAL HealthcareLeukocytes, UAPositive Negative - 500+++ Robinson/mcLST. MARK'S HOSPITAL HealthcareComment on above:smallNitrite, UA NegativeNegative - PositiveNOWY HealthcarepH, UA6.55 - 9NOMS HealthcareProtein, UANegativeNegative - 1999(20) ++++ mg/dLNOWY HealthcareSpec Grav, UA1.011 - 1.03 NOMS HealthcareUrobilinogen, UA0.20.2 - 12 mg/dLSaint Francis Medical Center Healthcare BOX TESTon 22-41-1376SHJ TEST SENT OUTunSaint Thomas Rutherford HospitalUmxdutlmpaHAQ5dzdofGOIM CikvccwdrzEQN24/08/20NOPemiscot Memorial Health SystemsUNITY BOX CLINISYNCCBC without diffon 59-35-1390Mzmuqwqlef (Bld) [Volume fraction]39.8 % [facility] SystemHemoglobin (Bld) [Mass/Vol]13.2 g/dLUniversity Hospitals Lake West Medical CenterPlatelets (Bld) [#/Vol]390 10*3/uLUniversity Hospitals Lake West Medical CenterRbc Mcv (Fl) By Automated Count84.7[facility] Medical CenterDrug Screen, Urineon 05-04-2025 Amphetamine/MethamphetamineNegativeC[facility] Clinic [facility] Po[facility] Hospital SystemBarbituratesNegative [facility] SystemBenzodiazepinesNegativeC[facility] SystemCocaine MetaboliteNegativeC[facility] SystemMethadoneNegativeC[facility] Hospital SystemOpiatesNegativeProMedica Health SystemOxycodoneNegativeProMedica Health SystemPhencyclidineNegativeProMedica Health SystemThc Marijuana, UrineNegative [facility] SystemHBV surface Ag IA Qlon 51-38-5101Nzzzgmyjz B Surface AntigenNegativeProMedica Health SystemHCV Ab IA Qlon 69-66-1450VJF Ab Ql (S) Non-ReactiveProMediwi Health SystemHIV 1+2 Ab+HIV1 p24 Ag IA Qlon 18-44-6459VYX 1&2 AB/AGNon-ReactiveCleveland Clinic South Pointe Hospital SystemHemoglobin A1con 48-04-0242PcW2d (Bld) [Mass fraction]5.3 %4.0 - 6.0 %[facility] SystemNo Panel Information on 42-77-8817VADD HealthcareRubella IGG immune statusOrdered By: Angeline Velasquez on 34-89-6139Zmmxkct immune IgGProSt. Vincent'S St. Clair Health SystemType and screenon 50-47-1326Irr/Rh(D)PositiveProGerman HospitalHCG ( test) Ql (U)on 42-28-5617Ryrsbvlhwowwtm and review of laboratory resultsAbnormalNOWY Healthcare Preg Test, UrPositiveNegativeNOPemiscot Memorial Health SystemsNOWY HealthcareUS OB TRANSVAGINALon 18-34-6731YxuFinger[place] [address] Ultrasound Report Signed Patient: JUHI COPE MR#: [id number] : 1995 Acct:[id number] Age/Sex: 30 / F ADM Date: 05/01/25 Loc: US Attending Dr: Nathan Pop D.O. Ordering Physician: Nathan Pop D.O. Date of Service: 05/01/25 Procedure(s): US OB transvaginal Accession Number(s): [id number] cc: Nathan Pop D.O.; Physician,Non-Staff Katherine The [address] [address] Patient Name: JUHI COEP MRN: [id number] date: 1995 Sex: F Assigned Patient Location: US Current Patient Location: US Accession/Order Number: [id number] Exam Date: 05/01/2025 08:57 Report Date: 05/01/2025 [...] Faria M.D. 05/01/2025 9:01 AM Dictation Location: [place] [address] Electronically authenticated by: [id number] Y Date: 05/01/2025 09:01 Dictated By: Will Faria M.D. Signed By: 05/01/2504 DD/ 0 TD/TT: Meteorology Faculty Member:TBHRadiology, Radiologist, MD - 05/01/2025 [place] [address] Ultrasound Report Signed Patient: JUHI COPE MR#: [id number] : 1995 Acct:[id number] Age/Sex: 30 / F ADM Date: 05/01/25 Loc: US Attending Dr: Nathan Pop D.O. Ordering Physician: Nathan Pop D.O. Date of Service: 05/01/25 Procedure(s): US OB transvaginal Accession Number(s): [id number] cc: Nathan Pop D.O.; Physician,Non-Staff Katherine [address] [address] Patient Name: JUHI COPE MRN: [id number] date: 1995 Sex: F Assigned Patient Location: US Current Patient Location: US Accession/Order Number: [id number] Exam Date: 05/01/2025 08:57 Report Date: 05/01/2025 [...] Faria M.D. 05/01/2025 9:01 AM Dictation Location: [place] [address] Electronically authenticated by: [id number] Y Date: 05/01/2025 09:01 Dictated By: Will Faria M.D. Signed By: 05/01/25903 DD/ 0 TD/TT: Meteorology Faculty Member: LANETTE HealthcareRadiology Study observation (narrative)LANETTE SmallUS OB TRANSVAGINALOrdered By: Radiologist Radiology on 00-46-8852WGRW Healthcare Work Phone: Urinalysis macro (dipstick) panel (U)on 05-01-2025 Bilirubin, UANegativeNegative - 4(70) +++ mg/dLNOMS HealthcareBlood, UANegative Negative - 50 Teodoro/mcLNOMS HealthcareClarity, UAClearNOMS HealthcareColor, UA YellowNOMS HealthcareGlucose, UANegativeNegative - 2000(110) ++++ mg/dLNOMS HealthcareInterpretation and review of laboratory resultsNormalNOWY Healthcare Ketones, UANegativeNegative - 160(16) ++++ mg/dLNOMS HealthcareLeukocytes, UA NegativeNegative - 500+++ Robinson/mcLNOMS HealthcareNitrite, UANegativeNegative - PositiveNOMS HealthcarepH, UA5.55 - 9NOMS HealthcareProtein, UANegativeNegative - 2000(20) ++++ mg/dLNOMS HealthcareSpec Grav, UA1.021 - 1.03NOMS Healthcare Urobilinogen, UA1.00.2 - 12 mg/dLNOMS HealthcareNOMS HealthcareCHEMISTRYOrdered By: SYSTEM SYSTEM on 23-87-8961Fzjkrbvpxswy Lvl31.35 ng/mLInvalid Interpretation CodeRemisol ChemComment on above:Result Comment: 'F NON FOLLICULAR = 0.10 - 0.60' 'LUTEAL = 3.00 - 17.5' 'MIDLUTEAL = 3.30 - 18.6' 'POST-MENOPAUSE = 0.10 - 0.40' '-FIRST TRIMESTER = 8.30 - 66.5' 'SECOND TRIMESTER = 18.9 - 66.1' 'THIRD TRIMESTER = 35.8 - 312.4' 'MALES = 0.14 - 2.06'Progesteroneon 37-22-5856Xqjmsuhogbel Lvl31.35 ng/mLInvalid Interpretation CodeOhio State Health SystemComment on above:Result Comment: 'F NON FOLLICULAR = 0.10 - 0.60' 'LUTEAL = 3.00 - 17.5' 'MIDLUTEAL = 3.30 - 18.6' 'POST-MENOPAUSE = 0.10 - 0.40' '-FIRST TRIMESTER = 8.30 - 66.5' 'SECOND TRIMESTER = 18.9 - 66.1' 'THIRD TRIMESTER = 35.8 - 312.4' 'MALES = 0.14 - 2.06'Performed By: #### [id number] #### [facility] [address] [place], [place] [address]Rkietlzphhicgc 43-45-9356Smwwtjstqscj8.2 ng/mLNormal.The [facility] Physician GroupComment on above:Result Comment: Follicular phase 0.1 - 0.9 Luteal phase 1.8 - 23.9 Ovulation phase 0.1 - 12.0 First trimester 11.0 - 44.3 Second trimester 25.4 - 83.3 Third trimester 58.7 - 214.0 Postmenopausal 0.0 - 0.1 Performed at: - [facility] [id number] Image Assembler: Cm Sandoval PhD, Phone: [phone] PERFORMED BY: [address] [place] [address] PATHOLOGIST OPERATOR CAVITY PUMP ARNULFO THOMAS M.D.Performed By: #### PROG #### [facility] , Transvaginal Non-OBon 37-23-4959AB Transvaginal Non-OBExam Date/Time: 01/22/2025 16:22 EST Reason for Exam: N94.6 Report PLEASE SEE US Pelvis Non-OB Complete REPORT DATED: 01/22/2025. Ordering Provider: Nathan POP FINAL REPORT Dictated: 01/27/2025 10:11 am Siddharth Foy MD Signed (Electronic Signature): 01/27/2025 10:11 am Signed by: Siddharth Foy MD Transcribed by: ELOISA Technologist: Filiberto St[facility] HospitalUS Pelvis Non-OB Completeon 18-61-9407IL Pelvis Non-OB CompleteExam Date/Time: 01/22/2025 16:24 EST [...] Kate Gonzalez MD Transcribed by: ELOISA Technologist: TalyaOhio State Health SystemMILADY,APTIMA HPV,AGE GDLNon 62-67-9838SBE GDLN ACOG TESTINGNote.NOMS HealthcareComment on above:TESTS RESULT FLAG UNITS REF RANGE LAB Clinician Provided Cytology Information Source.............Cervix;Endocervix No. of containers..01 ThinPrep Vial Age Algo ACOG Sarah... -24 12 FLAG LEGEND: L-Low Normal,H-High Normal,LL-Alert Low,HH-Alert High <-Panic Low,>-Panic High,A-Abnormal,AA-Critical Abnormal Performed at: 01 =G [facility] [place] [address] Loren Oneal MD, IGP, RFX APTIMA HPV ASCUNote.[facility] HealthcareComment on above:TESTS RESULT FLAG UNITS REF RANGE LAB DIAGNOSIS: 02 NEGATIVE FOR INTRAEPITHELIAL LESION OR MALIGNANCY. Specimen adequacy: 02 Satisfactory for evaluation. Endocervical and/or squamous metaplastic cells (endocervical component) are present. Performed by: Sophia Calzada, Shank Burnisher ([facility]) . 02 Note: Note 02 The [...] <-Panic Low,>-Panic High,A-Abnormal,AA-Critical Abnormal Performed at: [address] [address] Loren Oneal MD, Performed at: =G - [facility] [id number] Image Assembler: Loren Oneal MD, Phone: [phone] Performed at: [facility] [id number] Image Assembler: Loren Oneal MD, Phone: [phone] BRUSH-SPATULA CERVIX ENDOCERVIX [facility] 45-70-5509ILTYHuvnzdiel (WHQ) JUHI COPE ([id number]) 1995 F Date Time Provider Department 04/29/24 [...] Status:Closed by CANDIS GARCES on 04/29/24[facility] Gladys 77-04-5772DEQSNwnmaiybf (WHQ) JUHI COPE ([id number]) 1995 F Date Time Provider Department 04/25/24 CHARLENE RODRIGUEZ During your visit today, we recorded the following information about you: Anna De Leon 04/25/2024 1:10 PM Signed 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 Please cancel surgery and all pre and [...] Encounter Status:Closed by SUSI DE LEONLEY on 04/25/24[facility] 12-LEADon 80-35-3283N[address] [address] Electrocardiograph Report Signed Patient: JUHI COPE MR#: [id number] : 1995 Acct:[id number] Age/Sex: 28 / F ADM Date: 02/13/24 Loc: PST Attending Dr: Nathan Pop D.O. Ordering Physician: Nathan Pop D.O. 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 Signed By: 02/14/24 0650 DD/ 1455 TD/TT: Meteorology Faculty Member:TBHRadiology, Radiologist, MD - 02/14/[address] [address] Electrocardiograph Report Signed Patient: JUHI COPE MR#: [id number] : 1995 Acct:[id number] Age/Sex: 28 / F ADM Date: 02/13/24 Loc: PST Attending Dr: Nathan Pop D.O. Ordering Physician: Nathan Pop D.O. 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 Signed By: 02/14/24 0650 DD/ 1455 TD/TT: Meteorology Faculty Member: LANETTE HealthcareECG 12-LEADOrdered By: Radiologist Radiology on 16-20-5940[facility] Work Phone: ECG 12-LEADon 96-09-2047Nfqnrhuhs Study observation (narrative)LANETTE HealthcareUS PELVIS W/ TRANSVAGINALon 42-36-0886DcyFinger, [place] [address] Ultrasound Report Signed Patient: JUHI COPE MR#: [id number] : 1995 Acct:[id number] Age/Sex: 28 / F ADM Date: 01/15/24 Loc: [facility] Attending Dr: Nathan Pop D.O. Ordering Physician: Nathan Pop D.O. Date of Service: 01/15/24 Procedure(s): US pelvis w/ transvaginal Accession Number(s): [id number] cc: Nathan Pop D.O.; Physician,Non-Staff Katherine The [address] [address] Patient Name: JUHI COPE MRN: [id number] date: 1995 Sex: F Assigned Patient Location: [facility] Current Patient Location: [facility] Accession/Order Number: [id number] Exam Date: 01/15/2024 07:57 Report Date: 01/15/2024 [...] Signed By: 01/15/24 1144 DD/ 1142 TD/TT: Meteorology Faculty Member:TBHRadiology, Radiologist, - 01/15/2024 [place] [address] Ultrasound Report Signed Patient: JUHI COPE MR#: [id number] : 1995 Acct:[id number] Age/Sex: 28 / F ADM Date: 01/15/24 Loc: [facility] Attending Dr: Nathan Pop D.O. Ordering Physician: Nathan Pop D.O. Date of Service: 01/15/24 Procedure(s): US pelvis w/ transvaginal Accession Number(s): [id number] cc: Nathan Pop D.O.; Physician,Non-Staff M.DKaren The [place] [id number] Patient Name: JUHI COPE MRN: [id number] date: 1995 Sex: F Assigned Patient Location: [facility] Current Patient Location: [facility] Accession/Order Number: [id number] Exam Date: 01/15/2024 07:57 Report Date: 01/15/2024 [...] Signed By: 01/15/24 1144 DD/ 1142 TD/TT: Meteorology Faculty Member: LANETTE HealthcareRadiology Study observation (narrative)[facility] HealthcareUS PELVIS W/ TRANSVAGINALOrdered By: Radiologist Radiology on 28-46-6947CBQZ [facility] Work Phone: cNPTanya 26-09-0485EBVGNjwobwtlu (Q) JUHI COPE ([id number]) 1995 F Date Time Provider Department 12/12/23 [...] [I10] Encounter Status:Closed by CANDIS GARCES on 12/12/23[facility] 12-33-5817UDAQKcpyrx Visit (GYMGME) JUHI COPE ([id number]) 1995 F Date Time Provider Department 12/10/23 10:30 AM CHARLENE RODRIGUEZ During your visit today, we recorded the following information about you: Pulse Blood pressure Weight 98/minute 124/84 68.9 kg Charlene Rodriguez DO 12/10/2023 3:14 PM Signed [facility] SECTION FOR MINIMALLY INVASIVE GYNECOLOGIC SURGERY OUTPATIENT VISIT DATE 12/10/2023 OUTPATIENT VISIT TYPE Follow-up visit PRIMARY CARE PHYSICIAN: Denny Rodríguez [address] [place] [address] REFERRING PHYSICIAN: Self CHIEF COMPLAINT: No chief [...] MRI: no evidence of Past Gynecologic History: Etcher Hand History LMP: 07/08/2023 (Exact Date), Having periods Age at Menarche: 14 Age at First : 27 Age at Menopause: Etcher Hand History Comments: Sexual Activity: Never; No partner [...] Skin: Skin color, texture (more content not included)...NormalDoctors Hospitalology Cervical or vaginal smear or scraping studyon 77-58-4995AITY HealthcareCNPNon 70-04-6937ILETAxbzjztbw ([facility]) JUHI COPE ([id number]) 1995 F Date Time Provider Department 08/02/23 CHARLENE RODRIGUEZ [facility] During your visit today, we [...] completed via Cover MyMeds. Juhi Cope (Morales: [id number]) - [id number] Orilissa 150MG tablets Status: Sent To Plan [...] [I10] Encounter Status:Closed by JENIFER LYNN on 08/02/23[facility] 51-35-4773XTNPScuyco Visit (GYMGME) JUHI COPE ([id number]) 1995 F Date Time Provider Department 07/16/23 11:30 AM CHARLENE RODRIGUEZ During your visit today, we recorded the following information about you: Blood pressure Last Period 136/90 07/08/23 Charlene Rodriguez DO 07/16/2023 12:41 PM Signed [facility] SECTION FOR MINIMALLY INVASIVE GYNECOLOGIC SURGERY OUTPATIENT VISIT DATE 07/16/2023 OUTPATIENT VISIT TYPE Follow-up visit PRIMARY CARE PHYSICIAN: Denny Rodríguez [address] [place] [address] REFERRING PHYSICIAN: Denny Rodríguez CHIEF COMPLAINT: No [...] additional bowel lesions identified Past Gynecologic History: Etcher Hand History LMP: 07/08/2023 (Exact Date), Having periods Age at Menarche: 14 Age at First : 27 Age at Menopause: Etcher Hand History Comments: Sexual Activity: Never; No partner [...] POSITIVES IN BOLD Cons (more content not included)...NormalMercy Health Lorain HospitalMRI FEMALE PELVIS WO/W IVCONon 63-90-9976KYT FEMALE PELVIS WO/W IVCON* * *Final Report* [...] additional findings. IMPRESSION: No deep infiltrating endometriosis. Meteorology Faculty Member: DAVID Transcribe Date/Time: Jun 12 2023 2:54P Dictated by : ASHLEY DUKE MD This examination was interpreted and the report reviewed and electronically signed by: SONIDO FLAHERTY MD on Jun 12 2023 4:51PM EST [id number] HospitalCNPNon 22-75-7134FDZZAixuswzid (GYNMN) JUHI COPE ([id number]) 1995 F Date Time Provider Department 05/11/23 CHARLENE RODRIGUEZ GYNMN During your visit today, we recorded the following information about you: Tawana Nair [facility] 05/11/2023 1:21 PM [...] aygestin 5mg daily. She did not picker feeder flexeril. Encourage to picker feeder the flexeril as this will help with the cramping. Reviewed red flag bleeding symptoms that require trip to ER (soaking greater than one overnight pad per hour, chest pain, shortness of breath, fatigue, palpitations).. Advised keep appt. Gives verbal understanding. Appointments for Next 60 Days Date Time Provider Location Dept Phone 05/17/2023 1:00 PM CHARLENE RODRIGUEZ [facility] Stro [phone] Candis Suárez RN Allergies As of Date: 05/11/2023 (No Known Allergies) Date Reviewed: 05/09/2023 Reviewed by: Jihan Downs APRN.CLOUD OPERATIONS ENGINEER - Fully Assessed Reason for Visit: [...] [I10] Encounter Status:Closed by CANDIS WILLINGHAM on 05/11/23[facility] HospitalGracie 16-34-0449LALLCthbwp Visit ([facility]) NITO COPEIS ([id number]) 1995 F Date Time Provider Department 05/01/23 10:30 AM JIHAN DOWNS [facility] During your visit today, we recorded the following information about you: Blood pressure Weight Height Last Period 148/64 64.9 kg 1.575 m 04/22/23 Jihan Downs APRN.CLOUD OPERATIONS ENGINEER 05/09/2023 11:46 AM Signed Juhi Cope is a 28 year old female who presents for problem visit for pain HPI: Pain is week before period and week of period. Worse on her period for every day she's bleeding Urinary - No symptoms GI - Always constipated. No meds Mcmullen - painful always Pain is on left [...] L0 SAB0 IAB0 Ectopic0 Multiple0 Live Births0 Etcher Hand History LMP: 03/26/2023 (Approximate), Having periods Age at Menarche: Age at First : Age at Menopause: Etcher Hand History Comments: Sexual Activity: Never; No partner [...] physical therapy - or can go locally [facility] [employer] on Request Trial flexeril at bedtime Can consider Baclofen [...] physical therapy - or can go locally [facility] [employer].QA on Request Trial flexeril at bedtime Can consider Baclofen suppositories - let me know if you want to trial after you go to PT Contin (more content not included)...NormalMercy Health Lorain HospitalCHEMISTRY Ordered By: SYSTEM SYSTEM on 85-89-2740Vktfhvp [Mass/Vol]4.3 g/dLNormal3.3 - 5.0 gm/dLFT RemisolAlbumin/Globulin [Mass [...] [Mass/Vol]8.8 mg/dLLow8.9 - 11.1 mg/dLFTMC RemisolChloride [Moles/Vol]100 mmol/EIyt489 - 111 mmol/LFTMC RemisolCO2 [Moles/Vol]24 mmol/L Iripye97 - 31 mmol/LFTMC RemisolCreatinine [Mass/Vol]1.0 mg/dLNormal0.5 - 1.3 mg/dLFTMC RemisolGFR/1.73 sq M.predicted among blacks MDRD (S/P/Bld) [Vol rate/Area]mL/min/1.73 i2Lebjhf>=59mL/min/1.73 m2[facility] Chem SGFR/1.73 sq M.predicted among non-blacks MDRD (S/P/Bld) [Vol rate/Area]mL/min/1.73 d5Vgppab >=59mL/min/1.73 m2[facility] Chem SGlobulin (S) [Mass/Vol]3.6 g/dLNormal1.4 - 4.0 gm/dLFTMC RemisolGlucose [Mass/Vol]104 mg/gFXwofft34 - 199 mg/dLFTMC Remisol Potassium [Moles/Vol]3.6 mmol/LNormal3.5 - 5.3 mmol/LFTMC RemisolProtein [Mass/Vol]7.9 g/dLHigh6.0 - 7.8 gm/dLFTMC RemisolSodium [Moles/Vol]134 mmol/LLow 135 - 145 mmol/LFTMC RemisolUrea nitrogen [Mass/Vol]10 mg/dLNormal5 - 21 mg/dL [facility] RemisolUrea nitrogen/Creatinine [Mass ratio]10 mg/pmOupxqz59 - 20FT[facility] RemisolHEMATOLOGYOrdered By: Amairani Jenkins on 23-84-4449Vqmajoiwpoll Ql (Bld) Present (01/31/23 2:10 PM)NormalFTMC HemeManSSErythrocyte [...] fLNormal6.4 - 10.8 fLFTMC HemeAutoSSPlatelets (Bld) [#/Vol]471.0 E9/FWndexv445.0 - 500.0 E9/LFTMC HemeAutoSSRBC (Bld) [#/Vol]4.3 E12/LNormal4.3 [...] - 0.5 E9/L [facility] HemeAutoSSLymphocytes/100 WBC (Bld)31.7 %Pgdngr36.0 - 50.0 %[facility] HemeAutoSS Lymphocytes/Leukocytes Auto (Bld) [Pure # fraction]2.4 E9/LNormal1.0 - 4.0 E9/L [facility] HemeAutoSSMonocytes/100 WBC (Bld)9.1 %Normal4.0 - 14.0 %[facility] HemeAutoSS Monocytes/Leukocytes Auto (Bld) [Pure # fraction]0.7 E9/LNormal0.2 - 1.0 E9/L [facility] HemeAutoSSNeutrophils/100 WBC (Bld)57.4 %Inyuwb45.0 - 75.0 %[facility] HemeAutoSS Neutrophils/Leukocytes Auto (Bld) [Pure # fraction]4.3 E9/LNormal2.0 - 7.5 E9/L [facility] HemeAutoSSSEROLOGYOrdered By: Patricia Newton on 05-66-9728VEY.beta subunit (U) [Moles/Vol]NegativeNormalFT Man SeroURINALYSISOrdered By: Solomon Leal on 84-90-7769Funmdulmw Ql (U)Negative (01/31/23 1:57 PM)NormalNegativeFTMC UA Auto SSClarity (U)Clear (01/31/23 1:57 PM)NormalClearFTMC UA Auto SSColor (U)Yellow (01/31/23 1:57 PM)NormalYellowFTMC UA Auto SSEpithelial cells.squamous LM.HPF (Urine sed) [#/Area]3-4 /HPFNormal0-2/HPFFTMC UA Auto SSGlucose Test strip (U) [Mass/Vol]Negative (01/31/23 1:57 PM)NormalNegativeFT UA Auto SSHemoglobin Ql (U)Negative (01/31/23 1:57 PM)NormalNegativeFTMC UA Auto SSKetones (U) [Mass/Vol]Negative (01/31/23 1:57 PM)NormalNegativeFT UA Auto SSLithium.plasma/[place].RBC (Bld) [Mass ratio]0-3 /HPFNormal0-3/HPFFTMC UA Auto SSNitrite Ql (U)Negative (01/31/23 1:57 PM)NormalNegativeSA[facility] Auto SSpH (U)6.0 *NA* (01/31/23 1:57 PM)Invalid Interpretation Code5.0 - 9.0[facility] UA Auto SSProtein (U) [Mass/Vol]Negative (01/31/23 1:57 PM)NormalNegativeSA[facility] UA Auto SSSpecific gravity (U) [Rel density] 1.010 *NA* (01/31/23 1:57 PM)Invalid Interpretation Code1.005 - 1.030[facility] UA Auto SSUA Spec DescClean Catch (01/31/23 1:57 PM)NormalSAINT [facility] U[facility] Auto SSUrobilinogen Qn (U)0.6296814 {Aspen'U}/dL Normal0.0 - 1.0 EU/dLSAINT FRANCIS [facility] [place] UA Auto SSWBC Auto Ql (U)Negative (01/31/23 1:57 PM)NormalNegativeSAINT [facility] Auto SSWBC LM.HPF (Urine sed) [#/Area]0-5 /HPFNormal0-5/HPFSAINT [facility]ANCIS [facility] [place] UA Auto SSBLOOD BANKOrdered By: Teena Quiroz on 66-02-2942VDT/Rh InterpPositiveInvalid Interpretation CodeSAINT FRANCIS [facility] BB SubsectionABSC Gel InterpNegative (12/30/22 11:28 AM)NormalSAINT [facility]ANCIS [facility] BB SubsectionCHEMISTRYOrdered By: SYSTEM SYSTEM on 44-09-0987Ixbon gap [Moles/Vol]12 mmol/LNormal6 - 16 mEq/LFTMC RemisolCalcium [Mass/Vol]8.6 mg/dLLow8.9 - 11.1 mg/dLFTMC RemisolChloride [Moles/Vol]103 mmol/L Uvafwe771 - 111 mmol/LFTMC RemisolCO2 [Moles/Vol]26 mmol/PEghbmq13 - 31 mmol/L [facility] RemisolCreatinine [Mass/Vol]0.9 mg/dLNormal0.5 - 1.3 mg/dLFTMC Remisol GFR/1.73 sq M.predicted among blacks MDRD (S/P/Bld) [Vol rate/Area]mL/min/1.73 s5Hvszgb>=59mL/min/1.73 m2FT Chem SGFR/1.73 sq M.predicted among non-blacks MDRD (S/P/Bld) [Vol rate/Area]mL/min/1.73 v4Ztsbnm>=59mL/min/1.73 m2FT Chem S Glucose [Mass/Vol]105 mg/sMNymwtd16 - 199 mg/dLFTMC RemisolPotassium [Moles/Vol] 3.8 mmol/LNormal3.5 - 5.3 mmol/LFTMC RemisolSodium [Moles/Vol]137 mmol/LNormal 135 - 145 mmol/LFTMC RemisolUrea nitrogen [Mass/Vol]17 mg/dLNormal5 - 21 mg/dL [facility] RemisolUrea nitrogen/Creatinine [Mass ratio]19 mg/jiManvjz34 - 20FT[facility] RemisolCOAGULATIONOrdered By: Courtney Tang on 63-87-1730dZRL Coag (PPP) [Time]31.5 cNiauzk79.1 - 36.5 second(s)[facility] Auto CoagINR Coag (PPP) [Relative time]1.0 {INR}Invalid Interpretation CodeFTMC Auto CoagPT Coag (PPP) [Time]11.7 sNormal 9.4 - 12.5 second(s)[facility] Auto CoagHEMATOLOGYOrdered By: SYSTEM SYSTEM on 48-10-7277Wnohxendl/100 WBC (Bld)1.2 %Normal0.0 - 2.0 %[facility] HemeAutoSS Basophils/Leukocytes Auto (Bld) [Pure # fraction]0.1 E9/LNormal0.0 - 0.2 E9/L [facility] HemeAutoSSEosinophils/100 WBC (Bld)4.1 %Normal0.0 - 8.0 %[facility] HemeAutoSS Eosinophils/Leukocytes Auto (Bld) [Pure # fraction]0.2 E9/LNormal0.0 - 0.5 E9/L [facility] HemeAutoSSLymphocytes/100 WBC (Bld)40.5 %Qhyjae44.0 - 50.0 %[facility] HemeAutoSS Lymphocytes/Leukocytes Auto (Bld) [Pure # fraction]2.3 E9/LNormal1.0 - 4.0 E9/L [facility] HemeAutoSSMonocytes/100 WBC (Bld)7.6 %Normal4.0 - 14.0 %[facility] HemeAutoSS Monocytes/Leukocytes Auto (Bld) [Pure # fraction]0.4 E9/LNormal0.2 - 1.0 E9/L [facility] HemeAutoSSNeutrophils/100 WBC (Bld)46.6 %Linfjt18.0 - 75.0 %[facility] HemeAutoSS Neutrophils/Leukocytes Auto (Bld) [Pure # fraction]2.6 E9/LNormal2.0 - 7.5 E9/L [facility] HemeAutoSSHEMATOLOGYOrdered By: Courtney Case on 27-46-4207Fjpyueekdht distribution width (RBC) [Ratio]14.1 %Bfcpmi17.9 - 14.2 %[facility] HemeAutoSS Hematocrit (Bld) [Volume fraction]31.5 %Low34.0 - 46.0 %[facility] HemeAutoSS Hemoglobin (Bld) [Mass/Vol]10.0 g/dLLow12.0 - 16.0 gm/dLFTMC HemeAutoSSMCH (RBC) [Entitic mass]25.3 pgLow27.0 - 34.0 pgFTMC HemeAutoSSMCHC (RBC) [Mass/Vol]31.8 g/eWMhncqd28.4 - 36.0 gm/dLFTMC HemeAutoSSMCV (RBC) [Entitic vol]79.6 fLLow80.0 - 100.0 fLFTMC HemeAutoSSPlatelet mean volume (Bld) [Entitic vol]7.7 fLNormal6.4 - 10.8 fLFTMC HemeAutoSSPlatelets (Bld) [#/Vol]264.0 E9/TMluevj768.0 - 500.0 E9/LFTMC HemeAutoSSRBC (Bld) [#/Vol]4.0 E12/LLow4.3 - 5.9 E12/LFTMC HemeAutoSS WBC corrected for nucl RBC Auto (Bld) [#/Vol]5.7 E9/LNormal4.0 - 11.0 E9/LFTMC HemeAutoSSURINALYSISOrdered By: Courtney Case on 90-61-7851Shmqyzse LM Ql (Urine sed)Trace /HPFNormalTrace/HPFFTMC UA Auto SSBilirubin Ql (U)Negative (12/30/22 8:53 AM)NormalNegativeSA[facility] UA Auto SSClarity (U)Clear (12/30/22 8:53 AM)NormalClearFSHARE [facility] U[facility] Auto SSColor (U)Yellow (12/30/22 8:53 AM)NormalYellowSAINT [facility]ANCIS [facility] UA Auto SSEpithelial cells.squamous LM.HPF (Urine sed) [#/Area]0-2 /HPFNormal0-2/HPFSAINT FRANCIS [facility] [place] UA Auto SSGlucose Test strip (U) [Mass/Vol]Negative (12/30/22 8:53 AM)NormalNegativeSAINT [facility] UA Auto SSHemoglobin Ql (U)2+ *ABN* (12/30/22 8:53 AM)Invalid Interpretation CodeNegativeSAINT [facility] UA Auto SSKetones (U) [Mass/Vol]Negative (12/30/22 8:53 AM)NormalNegativeSAINT [facility] UA Auto SSLithium.plasma/[place].RBC (Bld) [Mass ratio]4-20 /HPFNormal0-3/HPFSAINT FRANCIS [facility] [place] UA Auto SSNitrite Ql (U)Negative (12/30/22 8:53 AM)NormalNegativeSAINT [facility] Auto SSpH (U)6.0 *NA* (12/30/22 8:53 AM)Invalid Interpretation Code5.0 - 9.0[facility] UA Auto SSProtein (U) [Mass/Vol]Negative (12/30/22 8:53 AM)NormalNegativeSAINT [facility] UA Auto SSSpecific gravity (U) [Rel density] 1.025 *NA* (12/30/22 8:53 AM)Invalid Interpretation Code1.005 - 1.030[facility] UA Auto SSUA Spec DescClean Catch (12/30/22 8:53 AM)NormalSAINT [facility]ANCIS [facility] UA Auto SSUrobilinogen Qn (U)0.5697280 {Aspen'U}/dL Normal0.0 - 1.0 EU/dLSAINT FRANCIS [facility] [place] UA Auto SSWBC Auto Ql (U)Negative (12/30/22 8:53 AM)NormalNegativeSAINT [facility] Auto SSWBC LM.HPF (Urine sed) [#/Area]0-5 /HPFNormal0-5/HPFSAINT FRANCIS [facility] UA Auto SSOffice Visiton 14-71-1678Xqgtwa-up [id number] Juhi Cope 1995 F Date Provider Department Center 12/05/2022 [id number], GINA [facility] W[facility] None Chart Close Cosign Required by: Opal Ross MD[VARUND] No family history on file Level of Service:99599 PA OFFICE/OUTPATIENT ESTABLISHED LOW MDM 20-29 MIN (GE,GC) Reason for Visit and Comments: Blood Pressure Check [299][facility] SHSProgress Noteon 23-68-7466Zvmmwafx Note Attestation signed by Opal Ross MD at 12/05/2022 3:19 PM [facility]: This patient was seen in the [...] about 4 weeks (around 01/02/2023) for Visit .[facility] SHSProgress NoteVital signs BP 127/87 Weight 149.2lb Pulse 106 Temp 96.7NoAnne [facility] SHSProgress Noteon 88-30-4645Jzkeznft Note Late entry due to patient care. Resident Lacy notified of B.P 138/96 heart rate 119 around 1236 see flowsheet. Also notified checked in 1 hour via orders and B.P 143/87 pulse 111. Clarified if should check in 1 hour according to orders. . Also notified patient has discharge order in. Resident Lacy states No on rechecking. Ok to discharge. Will make patient aware.[facility] SHSProgress NotePOSTPARTUM VAGINAL DELIVERY POST DAY # [...] Vanessa Zambrano DO 12/02/2022, 5:09 [facility]42on 65-05-93059710.5mm flanges given to patient. Encouraged her to call for observation of pump session and smaller flanges. Martha in NICU to assist with personal pump.[facility] HealthCARECOORDon 49-07-6812DGJJGMXKY22 year old admitted for induction of labor [...] to home. Denies any concerns at this time.[facility] SHSProgress Noteon 46-80-1791Noslfwep Note NOTE - VAGINAL DELIVERY POST DAY [...] with more than 50% of the total knmj-pm-bfhv time of the visit in counseling/coordination of care. , 9:22 [facility] XAJ53gv 90-25-092213Jahgu given to patient and educated how to use and to bring to [facility] VWO96Eegmme pump use indicated for this pt. 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 Bowden; Dr. Kramer Information: Information for the patient's : Francie Cope [[id number]] Information for the patient's : Francie Cope [[id number]] Description: normal Meconium Noted: No Anesthesia: epidural [...] for: RUBELLAIGG Irina Kramer, DO 11/30/2022, 4:04 AMNAnne [facility] for [facility] SHSProgress Noteon 25-51-1264Zwfucbbs NoteFoley catheter inserted by Andi Bacon RN, catheter drained and emptied for 900cc. Catheter secured to leg.[facility] SHSProgress NotePatient up to bathroom but remains [...] be monitored and followed by the diet furniture repair technician. Suad Samuels, DTGreat Lakes Health System SHSProgress NotePatient unable to void, last straight cathed at 0400. Bladder scan obtained for >928 ml, fundus +2 and shifted to right. Patient straight cathed on attempt x2 by Andi Bacon RN for 950cc. Will continue to monitor.[facility] SHSCAREPLNon 11-95-0544XATJBTNXka patient will continue to make cervical change. Clotilde Mg, RNNoAnne [facility] SHSLaboratory - Hematology and Cell countsOrdered By: Lucrecia Cervantes on 23-55-5154Qmonisxnp (Bld) [#/Vol]386 10*3/uL140 - 440 10*3/uLSufayette county memorial hospital HealthPlatelets (Bld) [#/Vol]Ordered By: Lucrecia Cervantes on 96-02-2903Mbimtzbpdevuno and review of laboratory resultsNormal [facility]. agalactiae DNA TENA+probe Ql (Unsp spec)on 11-29-2022 Group B Strep ScreenNot detectedNot [facility] HealthInterpretation and review of laboratory resultsNoTuscarawas HospitalMethodology: real-time PCRSOttumwa Regional Health CenterABO and Rh group Confirm Nom (Bld)on 50-82-1982FNY group Nom (Bld)OSumma HealthD Ag Ql (RBC)PositiveSumTrinity Health System [facility] HealthBlood type and Crossmatch panel (Bld)on 73-50-5119KAT group Nom (Bld)OSumma HealthBlood group antibody screen GEL QlNegativeSumma HealthD Ag Ql (RBC)PositiveSumoh Healthmma HealthCBC panel Auto (Bld)Ordered By: Lauren Ayers on 45-79-2692Yhyrqfxjrri distribution width (RBC) [Ratio]13.3 %11.5 - 14.5 %[facility] Centera HealthHematocrit (Bld) [Volume fraction]33.8 %Low35.0 - 47.0 %[facility] HealthHemoglobin (Bld) [Mass/Vol] 11.2 g/dLLow11.7 - 16.0 g/dLSumma HealthInterpretation and review of laboratory resultsAbnormalSDayton VA Medical CenterH (RBC) [Entitic mass]28.0 pg26.0 - 34.0 pgSDayton VA Medical CenterHC (RBC) [Mass/Vol]33.1 %32.0 - 36.0 %[facility] Centera HealthMCV (RBC) [Entitic vol]84.4 fL80.0 - 98.0 fLSumma HealthPlatelet mean volume (Bld) [Entitic vol]8.3 fL7.4 - 12.4 fLSumma HealthPlatelets (Bld) [#/Vol]319 10*3/uL140 - 440 10*3/uL [facility] HealthRBC (Bld) [#/Vol]4.00 10*6/uL3.8 - 5.20 10*6/uLSumma HealthWBC (Bld) [#/Vol]18.9 10*3/uLHigh3.6 - 10.7 10*3/uLSumma HealthGlenbeigh Hospital HealthComprehensive metabolic 1998 panelon 83-01-0329Xhrnldu [Mass/Vol]3.9 g/dL3.5 - 5.0 g/dLSumma HealthALP [Catalytic [...] HealthGFR/1.73 sq M.predicted MDRD (S/P/Bld) [Vol rate/Area]- Peoples HospitalComment on above: Calculation based on the Chronic Kidney Disease Epidemiology Collaboration (CKD- EPI) equation refitwithout adjustment for raceGlucose [Mass/Vol]158 mg/mRRjhw27 - 100 mg/dLSumma HealthInterpretation and review of laboratory resultsAbnormal [facility] HealthPotassium [Moles/Vol]4.1 mmol/L3.5 - 5.1 mmol/LSumma HealthProtein [Mass/Vol]7.5 g/dL6.3 - 8.2 g/dLSumma HealthSodium [Moles/Vol]133 mmol/HNem295 - 145 mmol/LSumma HealthUrea nitrogen [Mass/Vol]5 mg/dLLow7 - 17 mg/dLSumma HealthSumma HealthLaboratory - Hematology and Cell countsOrdered By: Shruthi Fontana on 50-90-9946Oqqizfuql (Bld) [#/Vol]335 10*3/uL140 - 440 10*3/uLSumma HealthPlatelets (Bld) [#/Vol]Ordered By: Shruthi Fontana on 11-28-2022 Interpretation and review of laboratory resultsNormSt. Mary's Medical [facility] Health CHEMISTRYOrdered By: Sanako on 76-66-3238Zvmg T4 index Calc [Mass/Vol] 5.98 ng/dLNormal5.90 - [...] Code0.1 - 0.9 mg/dL FT RemisolChloride [Moles/Vol]102 mmol/XVskxzy545 - 111 mmol/LFTMC RemisolCO2 [Moles/Vol]18 mmol/LLow21 - 31 mmol/LFTMC RemisolCreatinine [Mass/Vol]0.6 mg/dL Normal0.5 - 1.3 mg/dLFTMC RemisolGFR/1.73 sq M.predicted among blacks MDRD (S/P/Bld) [Vol rate/Area]mL/min/1.73 w5Fbigpt>=59mL/min/1.73 m2[facility] Chem S GFR/1.73 sq M.predicted among non-blacks MDRD (S/P/Bld) [Vol rate/Area] mL/min/1.73 c6Iixwim>=59mL/min/1.73 m2[facility] Chem SGlobulin (S) [Mass/Vol]4.0 g/dL Normal1.4 - 4.0 gm/dLSAINT FRANCIS [facility] RemisolPotassium [Moles/Vol]3.7 mmol/LNormal3.5 - 5.3 mmol/LFTMC RemisolProtein [Mass/Vol]7.1 g/dLNormal6.0 - 7.8 gm/dLSAINT FRANCIS [facility] Remisol Sodium [Moles/Vol]132 mmol/XBke365 - 145 mmol/LFTMC RemisolUrate [Mass/Vol]4.9 mg/dLNormal2.2 - 7.4 mg/dLSAINT FRANCIS [facility] RemisolUrea nitrogen [Mass/Vol]7 mg/dLNormal5 - 21 mg/dLSAINT FRANCIS [facility] RemisolCOAGULATIONOrdered By: Amairani Jenkins on 97-78-6695fMAM Coag (PPP) [Time]25.3 yCpdrbj80.1 - 36.5 second(s)[facility] Auto Coag Fibrin+Fibrinogen fragments (S) [Mass/Vol]>10 and <40 *ABN* (11/27/22 3:14 PM)Invalid Interpretation Code<10[facility] Man SeroFibrinogen Coag (PPP) [Mass/Vol]539 mg/gMSawy939 - 393 mg/dLSAINT FRANCIS [facility]ITAL [facility] [place] Auto CoagINR Coag (PPP) [Relative time]0.9 {INR}Invalid Interpretation CodeSAINT FRANCIS [facility]ITAL [facility] [place] Auto CoagPT Coag (PPP) [Time]10.1 sNormal9.4 - 12.5 second(s)[facility] Auto CoagHEMATOLOGYOrdered By: Raquel Arteaga on 46-01-1777Qgihhwxvawb distribution width (RBC) [Ratio]12.9 %Wrafkk45.9 - 14.2 % [facility] HemeAutoSSHematocrit (Bld) [Volume fraction]34.2 %Wiqcir99.0 - 46.0 %[facility] HemeAutoSSHemoglobin (Bld) [Mass/Vol]11.0 g/dLLow12.0 - 16.0 gm/dLSAINT FRANCIS [facility] HemeAutoSSMCH (RBC) [Entitic mass]27.3 akJqnujk04.0 - 34.0 pgFTMC HemeAutoSSMCHC (RBC) [Mass/Vol]32.3 g/nDHvfrkb12.4 - 36.0 gm/dLFT HemeAutoSSMCV (RBC) [Entitic vol]84.6 cVLdqsng37.0 - 100.0 fLFT HemeAutoSSPlatelet mean volume (Bld) [Entitic vol]8.2 fLNormal6.4 - 10.8 fLFT HemeAutoSSPlatelets (Bld) [#/Vol]273.0 E9/PJjflkb744.0 - 500.0 E9/LFC HemeAutoSSRBC (Bld) [#/Vol]4.0 E12/LLow4.3 - 5.9 E12/LFSHARE [facility]ICAL [facility] HemeAutoSSWBC corrected for nucl RBC Auto (Bld) [#/Vol]15.7 E9/LHigh4.0 - 11.0 E9/LFC HemeAutoSSComment on above:Result Comment: Slide reviewed by ts Unable to obtain accurate platelet count due to platelet clumping. Platelet count estimate appears normal on slide..URINALYSISOrdered By: Amairani Jenkins on 19-94-1242Dtjcgnnss Ql (U)Negative (11/27/22 1:55 PM)NormalNegativeSA[facility] UA Auto SSClarity (U)Clear (11/27/22 1:55 PM)NormalClearFSHARE MEDICAL [facility]ENTER [facility] UA Auto SSColor (U)Yellow (11/27/22 1:55 PM)NormalYellowFT UA Auto SSEpithelial cells.squamous LM.HPF (Urine sed) [#/Area]3-4 /HPFNormal0-2/HPFFTMC UA Auto SSGlucose Test strip (U) [Mass/Vol]Negative (11/27/22 1:55 PM)NormalNegativeSA[facility] UA Auto SSHemoglobin Ql (U)1+ *ABN* (11/27/22 1:55 PM)Invalid Interpretation CodeNegativeFT UA Auto SSKetones (U) [Mass/Vol]Negative (11/27/22 1:55 PM)NormalNegativeSAINT [facility] UA Auto SSLithium.plasma/[place].RBC (Bld) [Mass ratio]4-20 /HPFNormal0-3/HPFSAINT FRANCIS [facility] UA Auto SSNitrite Ql (U)Negative (11/27/22 1:55 PM)NormalNegativeSAINT [facility] Auto SSpH (U)6.5 *NA* (11/27/22 1:55 PM)Invalid Interpretation Code5.0 - 9.0[facility] UA Auto SSProtein (U) [Mass/Vol]Negative (11/27/22 1:55 PM)NormalNegativeSAINT [facility] UA Auto SSSpecific gravity (U) [Rel density] 1.010 *NA* (11/27/22 1:55 PM)Invalid Interpretation Code1.005 - 1.030[facility] UA Auto SSUA Spec DescClean Catch (11/27/22 1:55 PM)NormalSAINT [facility]ANCIS [facility] UA Auto SSUrobilinogen Qn (U)0.2314647 {Aspen'U}/dL Normal0.0 - 1.0 EU/dLSAINT FRANCIS [facility] UA Auto SSWBC Auto Ql (U)Negative (11/27/22 1:55 PM)NormalNegativeSAINT [facility] UA Auto SSWBC LM.HPF (Urine sed) [#/Area]0-5 /HPFNormal0-5/HPFSAINT FRANC[facility] UA Auto SSCHEMISTRYOrdered By: SYSTEM SYSTEM on 07-14-2022 Albumin [Mass/Vol]3.6 g/dLNormal3.3 - 5.0 gm/dLSAINT FRANCIS [facility] RemisolAlbumin/Globulin [Mass ratio]1.1 {ratio}Normal1.1 - 2.2FTMC RemisolALP [Catalytic activity/Vol]41 [iU]/jKcwitg26 - 98 Int._Unit/LFTMC RemisolALT No additional P-5'-P [Catalytic activity/Vol]19 [iU]/dNormal6 - 46 Int._Unit/LFTMC RemisolAnion gap [Moles/Vol] 11 mmol/LNormal6 - 16 mEq/LFTMC RemisolAST [Catalytic activity/Vol]21 [iU]/d Normal5 - 43 Int._Unit/LFTMC RemisolBilirubin [Mass/Vol]0.7 mg/dLNormal0.0 - 1.1 mg/dLSAINT FRANCIS [facility] RemisolBilirubin.direct [Mass/Vol]0.1 mg/dLNormal0.1 - 0.4 mg/dLFTMC RemisolBilirubin.indirect [Mass or moles/Vol]0.6 mg/dLNormal0.1 - 0.9 mg/dLFTMC RemisolCalcium [Mass/Vol]8.9 mg/dLNormal8.9 - 11.1 mg/dLFTMC RemisolChloride [Moles/Vol]107 mmol/MVosijn123 - 111 mmol/LFTMC RemisolCO2 [Moles/Vol]22 mmol/L Qopykb92 - 31 mmol/LFT[facility] RemisolCreatinine [Mass/Vol]0.6 mg/dLNormal0.5 - 1.3 mg/dLFTMC RemisolGFR/1.73 sq M.predicted among blacks MDRD (S/P/Bld) [Vol rate/Area]mL/min/1.73 o1Vxzmlx>=59mL/min/1.73 m2[facility] Chem SGFR/1.73 sq M.predicted among non-blacks MDRD (S/P/Bld) [Vol rate/Area]mL/min/1.73 v7Ugzoax >=59mL/min/1.73 m2[facility] Chem SGlobulin (S) [Mass/Vol]3.3 g/dLNormal1.4 - 4.0 gm/dLFTMC RemisolGlucose [Mass/Vol]99 mg/bRDyxtfq36 - 199 mg/dLFTMC Remisol Potassium [Moles/Vol]3.5 mmol/LNormal3.5 - 5.3 mmol/LFTMC RemisolProtein [Mass/Vol]6.9 g/dLNormal6.0 - 7.8 gm/dLFTMC RemisolSodium [Moles/Vol]136 mmol/L Nxgvss612 - 145 mmol/LFTMC RemisolUrea nitrogen [Mass/Vol]8 mg/dLNormal5 - 21 mg/dLFTMC RemisolUrea nitrogen/Creatinine [Mass ratio]13 mg/pdZdgdky41 - 20[facility] RemisolHEMATOLOGYOrdered By: SYSTEM SYSTEM on [id number]/100 WBC (Bld) 0.3 %Normal0.0 - 2.0 %[facility] [...] 7.5 E9/LFTMC HemeAutoSSHEMATOLOGYOrdered By: Teena Quiroz on [id number] distribution width (RBC) [Ratio]12.9 %Normal 10.9 - 14.2 %[facility] HemeAutoSSHematocrit (Bld) [Volume fraction]33.6 %Low34.0 - 46.0 %[facility] HemeAutoSSHemoglobin (Bld) [Mass/Vol]11.5 g/dLLow12.0 - 16.0 gm/dL [facility] HemeAutoSSMCH (RBC) [Entitic mass]28.5 rhGlcspv27.0 - 34.0 pgFTMC HemeAutoSSMCHC (RBC) [Mass/Vol]34.1 g/tWNrksdw53.4 - 36.0 gm/dLFTMC HemeAutoSS MCV (RBC) [Entitic vol]83.5 oBKmqyov74.0 - 100.0 fLFTMC HemeAutoSSPlatelet mean volume (Bld) [Entitic vol]8.1 fLNormal6.4 - 10.8 fLSAINT FRANCIS [facility] [place] HemeAutoSSPlatelets (Bld) [#/Vol]271.0 E9/YIurmkf898.0 - 500.0 E9/[facility] HemeAutoSSRBC (Bld) [#/Vol] 4.0 E12/LLow4.3 - 5.9 E12/[facility] HemeAutoSSWBC corrected for nucl RBC Auto (Bld) [#/Vol]13.9 E9/LHigh4.0 - 11.0 E9/[facility] HemeAutoSSURINALYSISOrdered By: Deirdre Gilliam on [id number] LM Ql (Urine sed)Trace /HPFNormalTrace/HPFSAINT [facility]ANC[facility] [place] UA Auto SSBilirubin Ql (U)Negative (07/14/22 5:00 AM)NormalNegativeSAINT [facility] [place] UA Auto SSClarity (U)Clear (07/14/22 5:00 AM)NormalClearFSHARE MEDICAL [facility] [place] UA Auto SSColor (U)Yellow (07/14/22 5:00 AM)NormalYellowSAINT FRANCIS [facility]OS[facility] [place] UA Auto SSEpithelial cells.squamous LM.HPF (Urine sed) [#/Area]3-4 /HPFNormal0-2/HPFSAINT FRANCIS [facility] [place] UA Auto SSGlucose Test strip (U) [Mass/Vol]Negative (07/14/22 5:00 AM)NormalNegativeSAINT [facility]ANCIS [facility] [place] UA Auto SSHemoglobin Ql (U)Trace *ABN* (07/14/22 5:00 AM)Invalid Interpretation CodeNegativeSAINT [facility]ANCIS [facility] [place] UA Auto SSKetones (U) [Mass/Vol]Negative (07/14/22 5:00 AM)NormalNegativeSAINT [facility]ANCIS [facility] [place] UA Auto SSLithium.plasma/[place].RBC (Bld) [Mass ratio]0-3 /HPFNormal0-3/HPFSAINT FRANCIS [facility] [place] UA Auto SSMucus Ql (Urine sed)Trace (07/14/22 5:00 AM)NormalSAINT [facility]ANCIS [facility] [place] U[facility] Auto SSNitrite Ql (U)Negative (07/14/22 5:00 AM)NormalNegativeSAINT [facility]ANC[facility] [place] UA Auto SSpH (U)6.0 *NA* (07/14/22 5:00 AM)Invalid Interpretation Code5.0 - 9.0[facility] [place] UA Auto SSProtein (U) [Mass/Vol]Negative (07/14/22 5:00 AM)NormalNegativeSAINT [facility] UA Auto SSSpecific gravity (U) [Rel density] 1.020 *NA* (07/14/22 5:00 AM)Invalid Interpretation Code1.005 - 1.030[facility] Auto SSUA Spec DescClean Catch (07/14/22 5:00 AM)NormalSA[facility] U[facility] Auto SSUrobilinogen Qn (U)0.8150493 {Aspen'U}/dLNormal0.0 - 1.0 EU/dLSAINT FRANCIS [facility] UA Auto SSWBC Auto Ql (U)Negative (07/14/22 5:00 AM)NormalNegativeSAINT [facility]ANCIS [facility] Auto SSWBC LM.HPF (Urine sed) [#/Area]0-5 /HPFNormal0-5/HPFSAINT FRANCIS H[facility] [place] U[facility] Auto SSCHEMISTRYOrdered By: SYSTEM SYSTEM on 50-93-1247Fvbjsot [Mass/Vol]4.4 g/dLNormal3.3 - 5.0 gm/dLFTMC Remisol Albumin/Globulin [Mass ratio]1.1 {ratio}Normal1.1 - 2.2[facility] RemisolALP [Catalytic activity/Vol]64 [iU]/pIafvvd14 - 98 Int._Unit/LFTMC RemisolALT No additional P-5'-P [Catalytic activity/Vol]107 [iU]/dHigh6 - 46 Int._Unit/LFTMC RemisolAST [Catalytic activity/Vol]63 [iU]/dHigh5 - 43 Int._Unit/LFTMC Remisol Bilirubin [Mass/Vol]1.5 mg/dLHigh0.0 - 1.1 mg/dLFTMC RemisolBilirubin.direct [Mass/Vol]0.2 mg/dLNormal0.1 - 0.4 mg/dLFTMC RemisolBilirubin.indirect [Mass or moles/Vol]1.3 mg/dLHigh0.1 - 0.9 mg/dLFTMC RemisolCholesterol [Mass/Vol]193 mg/lWAcaqwe442 - 200 mg/dLFTMC RemisolCholesterol in HDL [Mass/Vol]64 mg/dL Invalid Interpretation CodeFTMC RemisolCholesterol in LDL [Mass/Vol]116 mg/dL Normal<=129mg/dLFTMC RemisolCholesterol in VLDL [Mass/Vol]13 mg/dLNormal7 - 40 mg/dLFTMC RemisolGlobulin (S) [Mass/Vol]3.9 g/dLNormal1.4 - 4.0 gm/dLFTMC RemisolProtein [Mass/Vol]8.3 g/dLHigh6.0 - 7.8 gm/dLFTMC RemisolTriglyceride [Mass/Vol]67 mg/dLNormal<=149mg/dLFTMC RemisolCOAGULATIONOrdered By: Courtney Case on 35-27-8214OYC Coag (PPP) [Relative time]1.0 {INR}Invalid Interpretation Code [facility] Auto CoagPT Coag (PPP) [Time]12.4 qZkpcnx16.2 - 12.9 second(s)[facility] Auto CoagHEMATOLOGYOrdered By: SYSTEM SYSTEM on 94-46-8232Jxoehjyoc/100 WBC (Bld)0.7 %Normal0.0 - 2.0 %[facility] HemeAutoSSBasophils/Leukocytes Auto (Bld) [Pure # fraction]0.0 E9/LNormal0.0 - 0.2 E9/LFTMC HemeAutoSSEosinophils/100 WBC (Bld)3.2 %Normal0.0 - 8.0 %[facility] HemeAutoSSEosinophils/Leukocytes Auto (Bld) [Pure # fraction]0.2 E9/LNormal0.0 - 0.5 E9/LFTMC HemeAutoSSLymphocytes/100 WBC (Bld) 31.9 %Hhylmp60.0 - 50.0 %[facility] HemeAutoSSLymphocytes/Leukocytes Auto (Bld) [Pure # fraction]1.9 E9/LNormal1.0 - 4.0 E9/LFTMC HemeAutoSSMonocytes/100 WBC (Bld)9.1 %Normal4.0 - 14.0 %[facility] HemeAutoSSMonocytes/Leukocytes Auto (Bld) [Pure # fraction]0.5 E9/LNormal0.2 - 1.0 E9/LFTMC HemeAutoSSNeutrophils/100 WBC (Bld) 55.1 %Dypibf95.0 - 75.0 %[facility] HemeAutoSSNeutrophils/Leukocytes Auto (Bld) [Pure # fraction]3.3 E9/LNormal2.0 - 7.5 E9/LFTMC HemeAutoSSHEMATOLOGYOrdered By: Chivo Ward on 44-74-9938Nmhciekqrwp distribution width (RBC) [Ratio]12.9 % Cjqdwu47.9 - 14.2 %[facility] HemeAutoSSHematocrit (Bld) [Volume fraction]40.1 %Normal 34.0 - 46.0 %[facility] HemeAutoSSHemoglobin (Bld) [Mass/Vol]13.2 g/uNTunyzy44.0 - 16.0 gm/dLFTMC HemeAutoSSMCH (RBC) [Entitic mass]27.7 voKeqevr74.0 - 34.0 pgFTMC HemeAutoSSMCHC (RBC) [Mass/Vol]32.8 g/qQWhzxxi40.4 - 36.0 gm/dLFTMC HemeAutoSS MCV (RBC) [Entitic vol]84.3 wGZrbzww96.0 - 100.0 fLFTMC HemeAutoSSPlatelet mean volume (Bld) [Entitic vol]8.5 fLNormal6.4 - 10.8 fLFTMC HemeAutoSSPlatelets (Bld) [#/Vol]299.0 E9/AEzoygt721.0 - 500.0 E9/LFTMC HemeAutoSSRBC (Bld) [#/Vol] 4.8 E12/LNormal4.3 - 5.9 E12/LFTMC HemeAutoSSWBC corrected for nucl RBC Auto (Bld) [#/Vol]5.9 E9/LNormal4.0 - 11.0 E9/LFC HemeAutoSSLMPon 69-97-1530Uaor risk assessmenta) No falls within the last hclkHV-VFHSF-Jiwony 320 Work Phone: Last menstrual period start tgieaouxynZU-HSMRI-Hrklfq 320 Work Phone: Tobacco use status CPHSb) OxOH-BZALQ-Kafwgg 320 Work Phone: OB/FLUID DYNAMICIST - Office Visiton 93-13-8712VG/FLUID DYNAMICIST - Office VisitDiagnoses/Problems Assessed Endometriosis (617.9) (N80.9) Orders Start: Orilissa 200 MG Oral Tablet; take 1 tablet by mouth twice a day Provider Impressions 26 yo 1. 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 History of Present Veoobbi15 yo presents as a follow up for [...] again engaged x 1 year working at [employer] [place] Review of Systems Constitutional: no fever, no [...] hours Vitals Vital Signs Recorded: 09Feb2022 11:41AM Xycklpho679 Rgcwmmuhi88 Height5 ft 2 in Owzhch943 lb BMI Qrtsrabzer65.51 kg/m2 BSA Calculated1.61 Tobacco Useb) No Fall [...] NormalUH TouchworksXR KNEE LEFT (MIN 4 VIEWS)on 90-44-2508AK KNEE LEFT (MIN 4 VIEWS)EXAM: XR KNEE [...] Joe Lopez MD 09/29/21 Final resultNormalMercy Marcin [facility] Hospitals For ChildrenOB/FLUID DYNAMICIST - Office Visiton 50-63-5615NP/FLUID DYNAMICIST - Office VisitDiagnoses/Problems Assessed Anxiety (300.00) (F41.9) Orders Start: FLUoxetine HCl - 20 MG Oral Capsule; TAKE 1 CAPSULE Daily Provider Impressions 26 yo 1. 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 History of Present Wcnsdfq75 yo with endometriosis was on norethindrone d/c'd [...] Every 6 hours Vitals Vital Signs Recorded: 08Lgn3836 01:19PM Srgsmvkc931 Obpcfnxgy86 Height5 ft 2 in Idodbz721 lb BMI Iqwvpdbtfu61.58 kg/m2 BSA Calculated1.53 Tobacco Useb) No Fall Screeninga) No falls within the last year MUB64Dfi1718 Pain Scale0 Signatures Electronically signed by : Charlene Rodriguez DO; Jun 03 2021 10:55AM EST (Author) NormalUH TouchworksChlamydia sp identified Org specific cx Nom (Genital specimen)Ordered By: Jackelyn Dela Cruz on 32-67-4970Ohxyytkf Chlamydia Screen NegativeNegativeSumoh HealthHBV surface Ag IA Qlon 62-34-2309Iesuhgzj Hepatitis B Surface AgNegativeNegative, None DetectedSumma HealthHIV 1+2 Ab and HIV1 p24 Ag IA.rapid Nom (S/P/Bld)on 45-84-0647TXF-1/HIV-2 AbNegativeSumma HealthNo Panel Informationon 03-73-0662Wxqkqxwb Gonorrhea ScreenNegativeNegativeSumma Health External Rubella IGG QuantitationPositiveSumma HealthSumma HealthNo Panel InformationOrdered By: Jackelyn Dela Cruz on 00-14-8323Wfxzg HealthReagin Ab RPR Ql (S)on 22-92-2253Gtdaomyi RPRNon-ReactiveBorderline, Nonreactive, Weakly Reactive, EquivocalSumma HealthOB/FLUID DYNAMICIST - Office Visiton 67-18-1216DI/FLUID DYNAMICIST - Office VisitDiagnoses/Problems Assessed Endometriosis (617.9) (N80.9) Never smoker Orders Stop: Norethindrone Acetate 5 MG Oral Tablet Tobacco Use Screening; Status:Complete; Done: 25Hdl1030 Provider Impressions 26 yo 1. endometriosis: rx'd norethindrone referral to pelvic floor PT rtc in 3-6 months if continues to have pain, will consider centrally acting neuromodulator Chief Complaint Patient presents today for f/u for endometriosis PAP per patient 2019 [employer] declined -CATY,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 LMP 04/11/21 History of Present Hogqded13 yo with endometriosis bleeding once per month, [...] Apr 20 2021 11:04AM EST (Author) [facility] TouchworksTobacco Screening.on 54-08-1302Cnhd risk assessmenta) No falls within the last labdPM-RHUVF-Syqeqy 320 Work Phone: Lasd menstrual period start tapd69Omh6215 VU-FKMLW-Maxdut 320 Work Phone: Tobacco Screening.b) SwUG-CKDAI-Penhmt 320 Work Phone: Radiologyon 88-95-4230CD Kidney - bilateralNormal QJ-Imgsfwq-Iprwjzxik Work Phone: us RENAL BILATon 67-22-9648RA RENAL BILATMRN: [id number] Patient Name: JUHI COPE STUDY: US RENAL BILAT; 04/14/2021 1:14 pm INDICATION: Recurrent UTI. COMPARISON: None. ACCESSION NUMBER(S): [id number] ORDERING CLINICIAN: TERI CHAU TECHNIQUE: Multiple images [...] ultrasound. Electronically signed by: GENEVIEVE CAR STUPIN, MDDanville State Hospital Office Visit (Urology)on 35-35-5465Enxbxt-up visitDiagnoses/Problems Assessed Recurrent UTI (599.0) (N39.0) Orders Recurrent UTI Start: Nitrofurantoin Monohyd Macro 100 MG Oral Capsule; TAKE 1 CAPSULE Other Please take one capsule after sexual intercourse to prevent UTI Rx By: Teri Chau; Dispense: 30 Days ; #:30 Capsule; Refill: 11;For: Recurrent UTI; ROSY = N; [facility] Bilateral; Status:Hold For - Scheduling; Requested for:96Lhy7540; Perform:[facility]; Due:56Djv0494; Last Updated By:Isela Terrazas; 04/01/2021 9:16:17 AM;Ordered; [...] UTI; ROSY = N; [place] [address] Provider Impressions 26 year old female with [...] saw Dr. Booth at [facility] in [place], noting she was only treated with medications and urethral dilation for a supposed stricture.Denies gross hematuria. Patient is a non-smoker. Urine culture from [facility] on 03/04/21 was positive for [...] NPV - recurrent UTI History of Present Pgyqesx18 year old female with history of endometriosis presents today via telehealth as a new patient for evaluation of recurrent UTIs. She reports getting UTIs at least once per month, noting occasional nocturia. Symptoms include burning, frequency, and back pain. She states that some UTIs are related to sexual intercourse but most are not. Patient reports she saw Dr. Booth at [facility] in [place], noting she was only treated with medications [...] content not included)...NormalUH TouchworksNM GASTRIC EMPTYING SOLIDon 96-15-3077QJ GASTRIC EMPTYING SOLID* * *Final Report* * * DATE OF EXAM: Nov 05 2020 12:26PM [facility] 0017 - [place] GASTRIC EMPTYING SOLID [...] 4 HOURS IS CONSISTENT WITH MILD GASTROPARESIS. Meteorology Faculty Member: PSCB Transcribe Date/Time: Nov 05 2020 1:09P Dictated by : SIDDHARTH PEREA MD This examination was interpreted and the report reviewed and electronically signed by: SIDDHARTH PEREA MD on Nov 05 2020 1:24PM EST [id number] HospitalANES POSTPROC EVALon 59-92-0502DRKY POSTPROC EVALHNO ID: [id number] Author: Austin Story Service: ? Author Type: [...] October 25, 2020 TIME: 2:52 PM CSN: [id number] HospitalANES PRE-OPon 70-78-0426RLRB PRE-OPHNO ID: [id number] Author: Austin Story Service: ? Author Type: [...] October 25, 2020 TIME: 1:08 PM CSN: [id number] Health [facility] PATHOLOGYon 10-25-2020 SURGICAL PATHOLOGYSpecimen originated from [facility] Specimen #: [id number] Submitting Physician: MALCOLM CRUZ MD FINAL DIAGNOSIS [...] one cassette. Gross examination performed at [facility], [address] [place] [address] 10/25/2020 7:59:40 PM Date of Report: 10/26/2020 Date of Procedure: 10/25/2020 Date of Receipt: 10/25/2020 Submitted by: MALCOLM CRUZ MD Location: AVEN Diagnostic interpretation performed at [facility], [address] [place] [address]. [place] Number: [id number] Clinic Reference LabComment on above:Performed By: #### S #### See report for performing lab information.SURGICAL PATHOLOGYSpecimen originated from [facility] Specimen #: [id number] Submitting Physician: MALCOLM CRUZ MD FINAL DIAGNOSIS [...] one cassette. Gross examination performed at [facility], [address] [place] [address] EJL 10/25/2020 7:59:40 PM Date of Report: 10/26/2020 Date of Procedure: 10/25/2020 Date of Receipt: 10/25/2020 Submitted by: MALCOLM CRUZ MD Location: AVEN Diagnostic interpretation performed at [facility], [address] [place] [address]. [place] Number: [id number] Lady of Bellefonte Hospital/ GROUP TESTon 56-65-6831PRI Surgery Center of Southwest KansasComment on above: Performed By: #### VERAB #### [facility] [address] [place], [place] [address]MH TYPEPositiveSouth Cameron Memorial HospitalComment on above: Performed By: #### VERAB #### [facility] [address] [place], [place] [address]Npcwg Surgical Pathology Departmenton 04-39-7698Dlpjq Surgical Pathology DepartmentName JUHI COPE Pathologist: ASHLEY HURTADO MD Date of Procedure: 09/01/2020 Date Received: 09/01/2020 Date Reported 09/03/2020 Submitting Physician: CHARLENE RODRIGUEZ D.O. Location: [facility] External # FINAL DIAGNOSIS A. LEFT PELVIC [...] D. Right pelvic sidewall peritoneum are 2 bpht-fiw-qjr, irregular fragments of tissue measuring 1.3 x [...] in one cassette. SB amisha/09/02/2020 [facility] Department of Pathology [address] [place], [place] [address]OvjvipRSAtrium Health HarrisburgComment on above:Performed By: #### [facility] #### [place] Surgical Pathology Department [address] [facility] [address]Mcxivgc and Physical - Surgery > 30 dayson 55-16-7589Eozcnvj and Physical - Surgery > 30 daysHistory [...] T&S: O+, COVID-19: negative OB Hx: None. Etcher Hand Hx: As above. PMHx: endometriosis Surg Hx: diagnostic laparoscopy, appendectomy (2016) Meds: Meloxicam, [place], Norethindrone acetate Social Hx: No tobacco, no [...] the note. I personally evaluated the patient ke74-Rif-5849 Attending Provider Inpatient Certification StatementObservation patient/other outpatient visits Electronic Signatures: Charlene Rodriguez () (Signed 01-Sep-2020 10:04) Authored: Note Completion Co-Signer: History of Present Illness, Home Medication Review, Impression/Procedure, ERAS, Physical Exam, Consent, Note Completion Chelsie Leal ( (Resident)) (Signed 31-Aug-2020 15:44) Authored: History of Present Illness, Home Medication Review, Impression/Procedure, ERAS, Physical Exam, Consent, Note Completion Last Updated: 01-Sep-2020 10:04 by Charlene Rodriguez ()[facility] HospitalHomegoing Instructionson 35-70-8503Gbwrcvxfo InstructionsAdditional Instructions: Handouts Given: Topic 1Anesthesia Homegoing Instructions Topic 2Surgical Site Infection Handout Topic 3New Medication Education Topic 4Suggamedex handout Electronic Signatures: Aminata Gomez (DIALLO) (Signed 01-Sep-2020 16:07) Authored: Additional Instructions Last Updated: 01-Sep-2020 16:07 by Aminata Gomez (DIALLO)[facility] HospitalPatient Profile - Preop v2on 44-09-1247Rmfbnss Profile - Preop a3Bvpfjln: Initial Info: How to be Addressedalexis Spoken Language PreferredEnglish Are you currently using the Personal Electronic Health Record or [place] Medical Stated Reason for Admissionseeing if my endometriosis is back Primary Contact Name and Numberlogan [phone] Patient Belongingsclothing locker glasses with bf Medications Brought to Hospitalno General Health: Weight in kg55.6 kilogram(s) Weight in mlw079.5 pound(s) Weight Methodactual (measured) Scale Typestanding Height [...] Arrangementshouse Lives Withparent(s) Resource/Environmental Concernsnone Anticipated Transition [place] [employer] Anticipated at Transitionnone Substance: Current or [...] Learning Preferencesverbal instruction Cultural Considerationsnone Developmental Considerationsnone Advent Considerationsnone Other learner availableno Falls RiskPatient location auto qualifies him/her for HIGH RISK. Are there any cultural, spiritual, gnosticism practices/values/needs that are important for us to [...] Physical - Surgery > 30 days 01-Sep-2020 03:42[facility] HospitalPreop Checkliston 23-80-1149Vouzl Checklist Preop Checklist: Preop Checklist: Arrival Ihyq23-Ywq-7300 Arrival Time12:30 Procedure Typelaparoscopic endometriosis excision NPO Tgjpwn32-Bfx-8111 00:00 ID Band Onyes Allergy Bandno known [...] Last Updated: 01-Sep-2020 12:35 by Sierra Kraft (RN)[facility] Memorial HospitalANTIBODY IDENT.on 35-28-2633WVLUHJXS IDENT.SEE BELOWNormAtrium Health HarrisburgComment on above:Result Comment: NO CLINICALLY SIGNIFICANT ANTIBODIES IDENTIFIED.Performed By: #### ABID #### [facility] [address] [place], [place] [address]ARYan 17-15-5476Hwbzecngnwt distribution width (RBC) [Ratio] 12.1 %Oxsmkq88.5 - 14.5L[facility] Specialty HospitalComment on above:Performed By: #### CBC #### [facility] [address] [place], [place] [id number] (Bld) [Volume fraction]39.6 %Gpxxvf63.0 - 46.0[facility] Specialty HospitalComment on above:Performed By: #### CBC #### [facility] [address] [place], [place] [address]Rbkhtqvxbv (Bld) [Mass/Vol]12.6 g/rNZelvqa35.0 - 16.0[facility] Specialty HospitalComment on above:Performed By: #### CBC #### [address] [id number] (RBC) [Mass/Vol]31.8 g/dLLow32.0 - 36.0L[facility] Specialty HospitalComment on above:Performed By: #### CBC #### [address] [id number] (RBC) [Entitic vol]90 tVCbcazd01 - 100L[facility] Specialty HospitalComment on above:Performed By: #### CBC #### [address] [id number] (Bld) [#/Vol]333 10*3/uRNafzte619 - 450L[facility] Specialty HospitalComment on above:Performed By: #### CBC #### [address] [id number] x10E12/LNormal4.00 - 5.20[facility] Comment on above:Performed By: #### CBC #### [address] [id number] (Bld) [#/Vol]5.6 10*3/uLNormal4.4 - 11.3L[facility] Specialty HospitalComment on above:Performed By: #### CBC #### [address] [id number] 2019, SCREEN ASYMPTOMATICon 02-19-5812PYGJ-CoV-2 (COVID-19) RNA TENA+probe Ql (Unsp spec)Not detectedNormalNot DetectedLourdes Specialty HospitalComment on above:Result Comment: This assay is [...] patient management decisions. Fact sheet for providers: https://www.fda.gov/media/807578/download Fact sheet for patients: https://www.fda.gov/media/109851/download This test has received FDA Emergency Use Authorization (EUA) and has been verified by [facility] ([facility]). This test is only authorized for the duration of time that circumstances exist to justify the authorization of the emergency use of in vitro diagnostic tests for the detection of SARS-CoV-2 virus and/or diagnosis of COVID-19 infection under section 564(b)(1) of the Act, 21 U.S.C. 360bbb-3(b)(1), unless the authorization is terminated or revoked sooner. [facility] is certified under CLIA-88 as qualified to perform high complexity testing. Testing is performed in the [facility] laboratories located at [address] [place] [address].Performed By: #### COVSC #### [place], [place] [address]Lab Specimen SourceNasal, NasopharyngealNoLutheran Medical CenterComment on above:Performed By: #### COVSC #### [place], [place] [address]TYPE + SCREENon 97-79-2995QYI KETTERING HEALTH SPRINGFIELDONoCentral Carolina HospitalComment on above:Performed By: #### T+S #### [facility] [address] [place], [place] [address]SC TYPEPositiveSouth Cameron Memorial HospitalComment on above: Performed By: #### T+S #### [facility] [address] [place], [place] [address]QXH TYPECanceledRiver's Edge HospitalComment on above:Order Comment: TEST TYPE + SCREEN WAS CANCELLED, 08/30/2020 13:37 JOP. Performed By: #### T+S #### [facility] [address] [place], [place] [address]JL TYPECanceledNormChildren's Hospital Colorado South CampusComment on above:Order Comment: TEST TYPE + SCREEN WAS CANCELLED, 08/30/2020 13:37 JOP. Performed By: #### T+S #### [facility] [address] [place], [place] [address]HXQJqq 23-07-8561NHYDBapkeca:Juhi Cope MRN: Height:5' 2 (1.575 m) Weight:120 [...] for the following basenames: K,HCT Progress Notes ([facility] REJ AV4): Jaquelin Wesley Ma [...] 1 10 oz. Bottle of Magnesium Citrate (Lemon/Kokhanok) ? A test for COVID 19 test [...] cooked potatoes; Special K, Rice Krispies or Taloga Flakes cereals; ripe bananas; melons (except watermelon [...] carbonated beverages such as chi aislinn or lemon-quartz valley soda; Gatorade? or other sports drinks [...] make sure you have a responsible adult ambulette driver to take you home after procedure. Due to having sedation, you may not drive the rest of the day. ? If you need to reschedule, please call [phone] ?Date/Provider Dr Cruz Procedure:colonoscpy Facility:[employer] Prep ordered( if aware):miralax Knowledge of prep instructions:posted to [employer] Diabetic:no Blood Thinners:no Pacemaker with defibrillator:no left message for patient to return call. Nurse triage please give below message. PLEASE READ PATIENT INSTRUCTIONS BELOW. THANK YOU.[facility] on 90-39-9784ZODZGICLAGV ID: [id number] Author: Leon Perkins (Rt) Fito Blanchard Service: Radiology Author Type: Biomass Plant Manager Type: Progress Notes Filed: 07/29/2020 11:06 [...] Lourdes HospitalXR ABD 2V SUPINE W UPR/DECUB/CTLon 43-17-7214OK ABD 2V SUPINE W UPR/DECUB/CTL* * *Final [...] structures are normal. No other significant abnormality. Meteorology Faculty Member: DAVID Transcribe Date/Time: Jul 29 2020 11:19A Dictated by : LALI ORNELAS MD This examination was interpreted and the report reviewed and electronically signed by: LALI ORNELAS MD on Jul 29 2020 11:19AM EST [id number] Vital Signs Date TimeVital SignValuePerforming UduvspkpqFpinfhfp70-07-0344 15:04-0500Body mass index (BMI) [Ratio]30.36 kg/p5Mvkly Kiesha DO Work Phone: [phone] [place], [place] [address]Lazjliblnw61-89-8805 15:04-0500Body djrhap09.3 kg Nathan Kiesha DO Work Phone: [phone] [address]-05-2025 15:04-0500Diastolic blood kaifvnwl05 mm[Hg]Nathan Kiesha DO Work Phone: [phone] [place], [place] [address]Odqhzkaexg61-27-0548 15:04-0500Systolic blood eejabapo370 mm[Hg]Nathan Kiesha DO Work Phone: [phone])[address] [place], [place] 6675410-22-2025 16:04-0400Body mass index (BMI) [Ratio]29.78 kg/f8Luzph Kiesha DO Work Phone: [phone] [place], [place] [address]Vnoxvgkqnu38-56-8008 16:04-0400Body oujnsv38.85 kgCorey Kiesha DO Work Phone: 1(683)[facility] [place], [place] [address]Ucmwdemtrw81-44-7760 16:04-0400Diastolic blood kseecvnk06 mm[Hg]Nathan Kiesha DO Work Phone: 1(089)[facility] [place], [place] [address]Onbhbwxoda84-63-2161 16:04-0400Systolic blood ehzequaf558 mm[Hg]Nathan Kiesha DO Work Phone: [phone] [address]-16-2025 10:34-0400Body mass index (BMI) [Ratio]29.26 kg/z7DigzwubiMadhuri Monroy MD Work Phone: pC[facility]10-16-2025 10:34-0400Body nuhefu91.58 kgMadhuri Monroy MD Work Phone: [phone] [place], [place] 6720310-16-2025 10:34-0400Diastolic blood ycthylvt32 mm[Hg]Madhuri Monroy MD Work Phone: 1(419)[address] [place], [place] 6110310-16-2025 10:34-0400Systolic blood nesnxmsr265 mm[Hg]Madhuri Monroy MD Work Phone: [phone])[address] [place], [place] 6110310-10-2025 14:48-0400Body mtxoke786.5 cmMine Denise MD Work Phone: [phone])[address] [place], [place] 6110310-10-2025 14:48-0400Body mass index (BMI) [Ratio]29.04 kg/n1ZdzrshMine Denise MD Work Phone: 1(419)[address] [place], [place] 6110310-10-2025 14:48-0400Body .03 kgMine Denise MD Work Phone: 1(419)[address] [place], [place] 6110310-10-2025 14:48-0400Diastolic blood boyzzjvq19 mm[Hg]Mine Denise MD Work Phone: 1(419)[address] [place], [place] 6110310-10-2025 14:48-0400Heart rate 104 /minMine Denise MD Work Phone: [phone])[address] [place], [place] 6110310-10-2025 14:48-0400Systolic blood efaegzej834 mm[Hg]Mine Denise MD Work Phone: 1(915)[address] [place], [place] 6110310-09-2025 15:54-0400Body mass index (BMI) [Ratio]29.41 kg/b2JxnivndrSteph Keane INSPECTION CLERK Work Phone: [phone] [place], [place] [address]Jpikjitbcr88-60-1974 15:54-0400Body dchloq12.94 kgSteph Keane INSPECTION CLERK Work Phone: [phone] LawnGxcilyhsdp85-56-3303 15:54-0400Diastolic blood mjxivavf83 mm[Hg]Steph Keane INSPECTION CLERK Work Phone: [phone])441-[facility] LawnIyyakrjbcs93-57-0944 15:54-0400Systolic blood lgeclzwr920 mm[Hg]Steph Keane INSPECTION CLERK Work Phone: [facility] LawnVnybztwomh81-58-6056 15:37-0400Body mass index (BMI) [Ratio]29.23 kg/f4FjodvthfSteph Keane INSPECTION CLERK Work Phone: [facility] LawnGleydutrke57-08-7977 15:37-0400Body rxhjby13.48 kgSteph Rickettserly INSPECTION CLERK Work Phone: [facility] LawnDdibzodpia51-66-2004 15:37-0400Diastolic blood mm[Hg]Steph Keane INSPECTION CLERK Work Phone: [facility] LawnDijehotjvm92-27-5714 15:37-0400Systolic blood mm[Hg]Steph Rickettserly INSPECTION CLERK Work Phone: [facility] LawnNzrljjpbhw74-98-5654 15:55-0400Body mass index (BMI) [Ratio]29.45 kg/m0VxxkgaTeena Sarmiento RN Work Phone: [phone] [place], [place] 6720309-29-2025 15:55-0400Body .03 kgTeena Sarmiento RN Work Phone: [phone] [place], [place] 5986509-17-2025 14:32-0400Body mass index (BMI) [Ratio]27.82 kg/e9Qogjg Kiesha DO Work Phone: [facility] LawnUzeeoipfqs60-07-4668 14:32-0400Body wziuja72 kg Nathan Kiesha DO Work Phone: [facility] LawnIakatfqkir36-73-9148 14:32-0400Diastolic blood qslaugdz25 mm[Hg]Nathan Kiesha DO Work Phone: [place] [address]Emyfuohssr11-51-4935 14:32-0400Systolic blood mm[Hg]Nathan Kiesha DO Work Phone: [facility] LawnXwvhpqkknd11-93-6322 15:36-0400Body akjzmn242.5 cmGeorge Kageovanian DO Work Phone: [facility] SystemsDtffvgduof02-37-7403 15:36-0400Body mass index (BMI) [Ratio]27.62 kg/f4Mwsvwesherita Beltran DO Work Phone: [facility]DP[facility] SystemsAbzsqwrxth59-32-0183 15:36-0400Body temperature 97.11 [degF]Eliceo Beltran DO Work Phone: [facility] SystemsUoiaqatpym10-36-0972 15:36-0400Body kgqsip11.49 kgGeorsherita Beltran DO Work Phone: DSPemisc[facility] SystemsAmplgznenm98-06-6042 15:36-0400Diastolic blood udnwhtqz98 mm[Hg]Eliceo Beltran DO Work Phone: LUP[facility] SystemsSbxfrmdgoq55-80-8734 15:36-0400Heart rate97 /min Eliceo Beltran DO Work Phone: [facility] LawnUtqotmhjhk29-68-1068 15:36-2553WcC2% (BldA) [Mass fraction]98 %Eliceo Beltran DO Work Phone: KNPemisc[facility] SystemsJvtonmhpur08-90-7779 15:36-0400Systolic blood qpauktua768 mm[Hg]Eliceo Beltran DO Work Phone: [facility] LawnXwzkhuaopz83-88-4266 15:42-0400Body mass index (BMI) [Ratio]26.48 kg/g5Hmnyw Fazio DO Work Phone: [facility] LawnQadbrbwcdi94-37-2111 15:42-0400Body wayogt03.68 kgCorepearl Cabrerao DO Work Phone: [facility] LawnBajlmubldy10-88-5186 15:42-0400Diastolic blood wbugpdgk14 mm[Hg]Nathan Cabrerao DO Work Phone: [facility] LawnJwvqflveri04-75-6836 15:42-0400Systolic blood jupgmcwy930 mm[Hg]Nathanpearl Cabrerao DO Work Phone: [facility] LawnMlmgjbnjdf34-85-8235 14:33-0400Body mass index (BMI) [Ratio]26.73 kg/y9Lxakn Kiesha DO Work Phone: [facility] LawnLvkibyqtao70-92-6481 14:33-0400Body gqydjc92.28 kgCorey Kiesha DO Work Phone: [facility] LawnLgexbdybvf53-79-3165 14:33-0400Diastolic blood rpvnmdou34 mm[Hg]Nathan Kiesha DO Work Phone: [phone])007-[address] [place], [place] [address]Nstmvooejs44-43-8923 14:33-0400Systolic blood ynaliwfc900 mm[Hg]Nathan Kiesha DO Work Phone: [phone] [place], [place] [address]Izxoctkylr37-87-9065 14:45-0400Body mass index (BMI) [Ratio]25.24 kg/c0Pxcct Kiesha DO Work Phone: [phone] [place], [place] [address]Gcojqeagrl21-29-2527 14:45-0400Body jdolop63.6 kg Nathan Kiesha DO Work Phone: [phone] [place], [place] [address]Dfldolaisg61-56-2208 14:45-0400Diastolic blood onyytjhn15 mm[Hg]Nathan Kiesha DO Work Phone: 1(296)452-[address] [place], [place] [address]Ovoibayrnc07-21-3487 14:45-0400Systolic blood epyebfsb784 mm[Hg]Nathan Kiesha DO Work Phone: [phone] [place], [place] [address]Mfdawnwvmv26-89-0959 10:29-0400Body mass index (BMI) [Ratio]25.68 kg/m2[facility]06-06-2025 10:29-0400Body .69 [facility]02[facility] 15:08-0500Body mass index (BMI) [Ratio]25.99 kg/u3Skbed Kiesha DO Work Phone: [phone] [place], [place] [address]Syxxnsrynw84-74-6445 15:08-0500Body rfhuma85.47 kgCorey Kiesha DO Work Phone: [phone] [place], [place] [address]Hmndzbbjdg22-49-1732 15:08-0500Diastolic blood ppofcpth93 mm[Hg]Nathan Kiesha DO Work Phone: [phone] [place], [place] [address]Vaipcoovwf21-59-5677 15:08-0500Systolic blood cliaxrjy294 mm[Hg]Nathan Kiesha DO Work Phone: [phone])283-[address] [place], [place] [address]Vtntocsnbk39-36-8538 15:53-0500Body jfnxes034.5 cmGemartha Beltran DO Work Phone: noP[facility]isc[facility] SystemsHdcbpoillr56-07-9464 15:53-0500Body mass index (BMI) [Ratio]25.61 kg/a5Pfsmqnmartha Beltran DO Work Phone: noPemisc[facility] SystemsVrkazctily71-21-0585 15:53-0500Body temperature 97.11 [degF]Eliceo Beltran DO Work Phone: noPemisc[facility] Health SystemsMphyogboyk46-86-8734 15:53-0500Body dybbvh03.5 kg Eliceo Beltran DO Work Phone: noPemisc[facility] SystemsFmvqmowiee76-38-4309 15:53-0500Diastolic blood bqjesotl69 mm[Hg]Eliceo Beltran DO Work Phone: noPemisc[facility] SystemsZcxsgdzjhf23-25-6495 15:53-0500Heart rate51 /min Eliceo Beltran DO Work Phone: noPemisc[facility] SystemsLevtdfxglz63-63-3378 15:53-9708JfN3% (BldA) [Mass fraction]98 %Eliceo Beltran DO Work Phone: noPemiscot [facility] Health SystemsZzjemzdjji38-43-6460 15:53-0500Systolic blood hnkuwtnz981 mm[Hg]Eliceo Beltran DO Work Phone: noPemisc[facility] SystemsKmnjjwojuq08-62-3238 11:15-0400Body mass index (BMI) [Ratio]25.97 kg/y9Ndlmx Fazio DO Work Phone: [facility] LawnDhrjgmlxgc24-73-7507 11:15-0400Body ywhoyc92.41 kgNathan Pop DO Work Phone: NOPemisc[facility] SystemsXkehnpvsoh82-25-3668 11:15-0400Diastolic blood ljybteod97 mm[Hg]Nathan Pop DO Work Phone: [facility] LawnYvblduyfrv40-60-4247 11:15-0400Systolic blood cdnpgviq767 mm[Hg]Nathan Pop DO Work Phone: noPemiscot Memorial Health SystemsPjiseridhd16-84-3324 10:02-0400Body mass index (BMI) [Ratio]25.39 kg/o5Plzoz Kiesha DO Work Phone: [phone] [place], [place] [address]Wdikpusypl14-96-9416 10:02-0400Body xgdkyv70.96 kgCorey Kiesha DO Work Phone: [phone])[facility] [place], [place] [address]Zfqswyrujr66-38-8350 10:02-0400Diastolic blood ifsxybbu81 mm[Hg]Nathan Kiesha DO Work Phone: [phone] [place], [place] [address]Dhekquesen64-82-7069 10:02-0400Systolic blood gsjoftid708 mm[Hg]Nathan Kiesha DO Work Phone: 1(485)[facility] [place], [place] [address]Bnqvomnuzb93-71-9285 10:55-0500Body mass index (BMI) [Ratio]28.17 kg/q0Xwhcq Kiesha DO Work Phone: [phone])[facility] [place], [place] [address]Xcbcurntsz08-91-1476 10:55-0500Body rjngjy89.85 kgCorey Kiesha DO Work Phone: [phone])[facility] [place], [place] [address]Bsobmzqidb90-57-5292 10:55-0500Diastolic blood ypqlcttd17 mm[Hg]Nathan Kiesha DO Work Phone: 1(357)[facility] [place], [place] [address]Vxvtrzqgru65-21-7425 10:55-0500Systolic blood mm[Hg]Nathan Kiesha DO Work Phone: [phone])[facility] [place], [place] [address]Qcyoctoxpu72-38-7962 17:31-0400Body temperature 98.96 [degF][facility]10-18-2023 17:31-0400 Diastolic blood rdpzkhow09 mm[Hg][facility]10-18-2023 17:31-5286TVA9 99 %[facility]10-18-2023 17:31-0400Heart wbks795 /minV[facility] L[facility]10-18-2023 17:31-0400 Respiratory rate16 /minV[facility]10-18-2023 17:31-0400 Systolic blood qciputsz641 mm[Hg][facility]06-06-2023 10:55-0400Body omxbax249.5 cmErin Reaper UNDERCOVER 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 Work Phone: [phone] Uihief83-50-7763 10:55-0400Body znpfui04.86 kgErin Reaper UNDERCOVER 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 Work Phone: [phone] Yqjvse51-04-6607 10:55-0400Diastolic blood waxpwrmm42 mm[Hg]Jihan Reaper UNDERCOVER 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 Work Phone: [phone] Fdbsfa91-41-2664 10:55-0400Systolic blood vymizvlr199 mm[Hg]Jihan Reaper UNDERCOVER 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 Work Phone: [place] Cqywvr88-55-5385 19:18-0500Diastolic blood kinwlddu22 mm[Hg][facility]03-08-2023 19:18-0500Heart rate98 /min[facility]03-08-2023 19:18-0500Nursing Progress Note ReasonOther: this RN discharged pt. pt verbalizes understanding and denies questiosn prior to discharge.[facility]03-08-2023 19:18-0500Respiratory rate16 /min[facility]03-08-2023 19:18-0453WxW6% (BldA) [Mass fraction]100 %[facility]03-08-2023 19:18-0500 Systolic blood hysqihnb876 mm[Hg][facility] 01-31-2023 18:00-0500Diastolic blood mm[Hg][facility]03-08-2023 18:00-0500Heart kwiv884 /minL[facility]03-08-2023 18:00-0500Mean blood vqrjzwde454 mm[Hg][facility]03-08-2023 18:00-7279NnJ9% (BldA) [Mass fraction]99 %[facility]03-08-2023 18:00-0500 Systolic blood fnztetll771 mm[Hg][facility] 01-31-2023 17:00-0500Diastolic blood uykivrac67 mm[Hg][facility]03-08-2023 17:00-0500Mean blood fpcjrtia115 mm[Hg][facility]03-08-2023 17:00-0500Systolic blood pressure 117 mm[Hg][facility]03-08-2023 16:38-0500Heart eumb283 /minL[facility]03-08-2023 16:38-0500Mean blood fxuejasv060 mm[Hg][facility]03-08-2023 16:38-0500Respiratory rate18 /[facility] 01-31-2023 13:49-0500Body snrpnvvtufi26.88 [degF][facility]03-08-2023 13:49-0500Heart quuz309 /min[facility]02-04-2023 14:55-0500Body cbagakrzdfk54.88 [degF][facility]02-04-2023 14:55-0500Diastolic blood unjwrchl72 mm[Hg][facility]02-04-2023 14:55-0500Heart rate84 /min[facility]02-04-2023 14:55-0500Mean blood loamtnsz683 mm[Hg][facility]02-04-2023 14:55-0500Respiratory rate20 /minL[facility]02-04-2023 14:55-6234RfY1% (BldA) [Mass fraction]98 %[facility]02-04-2023 14:55-0500Systolic blood pressure 137 mm[Hg][facility]02-04-2023 14:35-0500Body zqsvmwzebyh08.88 [degF][facility]02-04-2023 14:35-0500Diastolic blood kvafazsg00 mm[Hg][facility]02-04-2023 14:35-0500Heart rate82 /min[facility]02-04-2023 14:35-0500Mean blood goqcjifp25 mm[Hg][facility]02-04-2023 14:35-0500Respiratory rate16 /min[facility]02-04-2023 14:35-1596AzY7% (BldA) [Mass fraction]97 %[facility]02-04-2023 14:35-0500Systolic blood mm[Hg][facility]02-04-2023 13:35-0500Body irdnotwpgsk96.88 [degF][facility]02-04-2023 13:35-0500Diastolic blood qdzvtpco58 mm[Hg][facility]02-04-2023 13:35-0500Heart rate80 /min[facility]02-04-2023 13:35-0500Mean blood mjukkksa50 mm[Hg] [facility]02-04-2023 13:35-0500Respiratory rate 17 /min[facility]02-04-2023 13:35-5965IpX4% (BldA) [Mass fraction]96 %[facility]02-04-2023 13:35-0500Systolic blood arkcnxiv564 mm[Hg][facility]02-04-2023 13:00-0500Respiratory rate12 /min[facility]02-04-2023 12:55-0500Respiratory rate9 /min[facility]02-04-2023 12:50-0500Respiratory rate10 /min[facility]02-04-2023 08:15-0500Body zgdpfgtgtka81.24 [degF] [facility]02-04-2023 08:15-0500Heart wqqb525 /min[facility]01-07-2023 13:41-0500Body uxdnpxjnhdp33.2 [degF]Kathe Ryder DO Work Phone: 1(546)365-[address] [place], [place] [address]Rrqszn51-82-0302 13:41-0500Diastolic blood lxnxijpp91 mm[Hg]Kathe Ryder DO Work Phone: [facility]ohdru59-[facility]-0253 13:41-0500Heart sqco878 /min Kathe Ryder DO Work Phone: [phone] HospitalJvvltb13-37-6271 13:41-0500Respiratory rate18 /minKathe Ryder DO Work Phone: [facility] HospitalSaxhad88-87-3364 13:41-9107VrX0% (BldA) [Mass fraction]99 %Kathe Ryder DO Work Phone: [facility] HospitalRkermv37-83-0186 13:41-0500Systolic blood uwmildba761 mm[Hg]Kathe Ryder DO Work Phone: [facility] HospitalPxkizp55-28-2375 00:45-0500Body fykggc429.5 cm Kathe Ryder DO Work Phone: [facility] HospitalEhdxyu74-33-2128 00:45-0500Body mass index (BMI) [Ratio]25.61 kg/v7OjuznxjgfKathe Ryder DO Work Phone: [facility] HospitalOqnjeo47-93-5958 00:45-0500Body wdywaf96.5 kg Kathe Ryder DO Work Phone: [facility] HospitalXsakhx11-13-7599 22:26-0500Hourly Rounding Fredi KARASIK [address] [place], [place] [address]Comment on above:Result Comment: ensured that all pt belongings are sent with pt. pt has no questions or concerns. report given to EMS. pt stable and no s/s of distress. pt off unit to zvduepyk49-45-4065 22:00-0500Diastolic blood clsheott78 mm[Hg]Fredi KARASIK [address] [place], [place] 4874501-02-2023 22:00-0500Heart axcr247 /minGregory KARASIK [address] [place], [place] 4874501-02-2023 22:00-0500 Hourly RoundingGregory KARASIK [address] [place], [place] 4874501-02-2023 22:00-0500Mean blood fbinjcef818 mm[Hg]Fredi KARASIK [address] [place], [place] 4874501-02-2023 22:00-0500 Systolic blood vbmonspp729 mm[Hg]Fredi KARASIK [address] [place], [place] 4874501-02-2023 21:50-0500Blood Pressure LocationGregory KARASIK [address] [place], [place] 4874501-02-2023 21:50-0500 Diastolic blood treajvmq81 mm[Hg]Fredi KARASIK [address] [place], [place] 4874501-02-2023 21:50-0500Heart rurx030 /minGregory KARASIK [address] [place], [place] 4874501-02-2023 21:50-0500 Hourly RoundingGregory KARASIK [facility]01-02-2023 21:50-0500Mean blood ufmouptc222 mm[Hg]Fredi SCHUMACHERASIK [address] [place], [place] 4874501-02-2023 21:50-0500 Respiratory rate18 /minFredi SCHUMACHERASIK [address] [place], [place] 4874501-02-2023 21:50-3850RvZ8% (BldA) [Mass fraction]98 %Fredi SCHUMACHERASIK [address] [place], [place] 4874501-02-2023 21:50-0500 Systolic blood mm[Hg]Fredi KARASIK [address] [place], [place] 4874501-02-2023 21:37-0500Blood Pressure LocationGregrosa ABREUK [address] [place], [place] 4874501-02-2023 21:37-0500 Diastolic blood qhpwnegj67 mm[Hg]Fredi SCHUMACHERASIK [address] [place], [place] 4874501-02-2023 21:37-0500Heart okoi062 /minFredi ABREUK [address] [place], [place] 4874501-02-2023 21:37-0500Mean blood itmmwebq641 mm[Hg]Fredi SCHUMACHERASIK [address] [place], [place] 4874501-02-2023 21:37-8763KiD5% (BldA) [Mass fraction]97 %Fredi SCHUMACHERASIK [address] [place], [place] 4874501-02-2023 21:37-0500 Systolic blood vagezkhf834 mm[Hg]Ferdi KARASIK [address] [place], [place] 4874501-02-2023 21:30-0500Blood Pressure LocationFredi SCHUMACHERASIK [address] [place], [place] 4874501-02-2023 21:30-0500Body ftpmifskhsj80.6 [degF]Fredi DORSEY [facility]01-02-2023 19:00-0500Body ndingmxevtl40.24 [degF]Fredi DORSEY [facility]01-02-2023 17:15-0500Body rgzgvcmhser69.06 [degF]Fredi DORSEY [facility]01-02-2023 14:02-0500Heart rate99 /minFredi DORSEY [facility]08-19-2022 07:00-0400Body bipqnhxdcdn96.6 [degF]Kaylinn Dokken [address]08-19-2022 07:00-0400 Diastolic blood utqqlcdi70 mm[Hg]Kaylinn Dokken [address]08-19-2022 07:00-0400Heart rate80 /minKaylinn Dokken [address] [place], [place] 6935508-19-2022 07:00-0400Mean blood puycagge77 mm[Hg]Kaylinn Dokken [address] [place], [place] 6935508-19-2022 07:00-0400 Respiratory rate17 /minKaylinn Dokken [address]08-19-2022 07:00-0400 Systolic blood oxwpqecr640 mm[Hg]Kaylinn Dokken [address] [place], [place] 6935508-19-2022 06:07-0400Body smgnxccatvw98.24 [degF]Kaylinn Dokken [address]08-19-2022 06:07-0400 Diastolic blood oufprmbc39 mm[Hg]Kaylinn Dokken [address] [place], [place] 6935508-19-2022 06:07-0400Heart rate90 /minCharlotteylinn Dokken [address]08-19-2022 06:07-0400 Respiratory rate18 /minCharlotteylinn Dokken [address] [place], [place] 6935508-19-2022 06:07-0398RvF3% (BldA) [Mass fraction]100 %Kumar Villagomez [address]08-19-2022 06:07-0400 Systolic blood gschxzqu476 mm[Hg]Beatrisn Yulyen [address] [place], [place] 6935508-19-2022 05:30-0400 Hourly RoundingCorey KIESHA [address] [place], [place] [address]Comment on above:Result Comment: Pt discharged per physician orders. Pt ambulates off unit with a steady omoh86-99-2822 05:15-0400Diastolic blood hxvixdqg81 mm[Hg]Nathan KIESHA [address] [place], [place] 4874508-19-2022 05:15-0400Heart zzdn062 /minCorey KIESHA [address] [place], [place] 4874508-19-2022 05:15-0400 Hourly RoundingCorey KIESHA [address] [place], [place] 4874508-19-2022 05:15-0400Mean blood tuuvzlhl54 mm[Hg]Nathan KIESHA [address] [place], [place] 4874508-19-2022 05:15-0400 Respiratory rate18 /minCorey KIESHA [address] [place], [place] 4874508-19-2022 05:15-0400 Systolic blood jojobqgl228 mm[Hg]Nathan KIESHA [address] [place], [place] 4874505-24-2022 11:00-0400Body qisbmx154.02 cmCameron Edward Other [facility] [employer] Other 05-24-2022 11:00-0400Body mass index (BMI) [Ratio] 23.03 kg/z9Vpjoxcw Blitsytty [facility] [employer] Other 05-24-2022 11:00-0400Body tkphoz22.97 kgCamerojunior Loratty Other [facility] [employer] Other 03-17-2022 11:41-0400Body ceklmg177.48 cmMegan Billow DO Work Phone: [phone]-OSXPS[address] Work Phone: [phone] 11:41-0400Body mass index (BMI) [Ratio] 24.51 kg/q0Tylvp Billow DO Work Phone: JW-CZWNI[address] Work Phone: [phone] 11:41-0400Body surface area Derived from formula1.61 b3Ulcrf Billow DO Work Phone: YG-GQIAL[address] Work Phone: [phone] 11:41-0400Body kycpoy37.78 kgMegan Billow DO Work Phone: IU-RMVBE[address] Work Phone: [phone] 11:41-0400Diastolic blood riunbkuc96 mm[Hg] Charlene Billow DO Work Phone: ZM-HUPBU[address] Work Phone: [phone] 11:41-0400Systolic blood etnbfoju467 mm[Hg] Charlene Billow DO Work Phone: CX-CWXTD[address] Work Phone: [phone] 11:41-57882 1Megan Billow DO Work Phone: FE-MMEFD[address] Work Phone: Comment on above:YXEDCUNJRjreRzdgu53-77-3124 14:53-0400Body ypcxob631.48 cmMegan Billow DO Work Phone: LU-LQWKU[address] Work Phone: [phone] 14:53-0400Body mass index (BMI) [Ratio] 21.77 kg/y0Mgctw Billow DO Work Phone: TK-SKBXJ[address] Work Phone: [phone] 14:53-0400Body surface area Derived from formula1.53 p8Gvylf Billow DO Work Phone: MY-QDRYL-[address] Work Phone: [phone] 14:53-0400Body qfjgcy85.98 kgMegan Billow DO Work Phone: JV-YHYNC[address] Work Phone: [phone] 14:53-0400Diastolic blood fwdorsas75 mm[Hg] Charlene Billow DO Work Phone: ZB-BKPVZ[address] Work Phone: [phone] 14:53-0400Heart ybse251 /minMegan Billow DO Work Phone: UP-DXJCX[address] Work Phone: [phone] 14:53-0400Systolic blood kcoeydat296 mm[Hg] Charlene Billow DO Work Phone: VA-FPECY[address] Work Phone: [phone] 14:53-23705 1Megan Billow DO Work Phone: DE-FINMO[address] Work Phone: Comment on above:GRAVPARAPainScale Encounters Encounter DateEncounter TypeCare ProviderFacilityStart: 10-06-2025 End: 12-11-5463Wrtjir outpatient visit 25 minutesColleen E Matthias CLAYTON Work Phone: [phone]-Lorca Medicine at [facility] Comment on above:Insulin controlled gestational diabetes mellitus (GDM) in third trimester (Primary Dx); Essential hypertension affecting in third trimesterStart: 10-06-2025 End: 55-63-1168yowpqcdjgmTINPCOB E MATTHIASProMedica Mercy Health – The Jewish Hospitaltart: 10-05-2025 End: 49-90-4034Dcxjmwvof encounterAnjana Davalos RNMaternal- Medicine at [facility] Centertart: 10-03-2025 End: 15-31-5587Nbaritwrt Result EncounterSteph Keane NP Work Phone: noms External Department UnsolicitedStart: 10-03-2025 End: 93-66-3697Oqzrcyoos Result EncounterSteph Keane NP Work Phone: noms External Department UnsolicitedStart: 09-30-2025 End: 15-28-4388Qtvqngia flow sheetCorey Kiesha DO Work Phone: noms Patti OBGYNComment on above:Third trimester ([facility]); 31 weeks gestation of ([facility]); Pre-eclampsia in third trimester ([facility])Start: 09-30-2025 End: 03-44-3845riwydjxrkgQGWZE FAZIONot AvailableStart: 09-30-2025 End: 82-45-8515Ritbea flowsheetCorey Kiesha DO Work Phone: noMS [place] OBGYNStart: 09-30-2025 End: 54-55-4366Uelqid flowsheetCorey Kiesha DO Work Phone: NOMS Patti OBGYNStart: 09-28-2025 End: 11-24-0324Zirqhz OnlyChivo Springer PA-C Work Phone: [phone]-Lxdfb Medicine at [facility] Comment on above:Essential hypertension affecting in third trimester Start: 09-26-2025 End: 63-44-3240Dsfelcbes Result EncounterSteph Keane NP Work Phone: [facility] External Department UnsolicitedStart: 09-26-2025 End: 94-38-5567Qzkqmnvjp Result EncounterSteph Keane NP Work Phone: [facility] External Department UnsolicitedStart: 09-21-2025 End: 81-12-8896lgsqhjxbbxNgygjnw E Lavoy PA-C Work Phone: [phone]-Ujaum Medicine at [facility] Comment on above:Insulin controlled gestational diabetes mellitus (GDM) in third trimester (Primary Dx); Essential hypertension affecting in third trimesterStart: 09-21-2025 End: 69-83-2151Rrarphftb encounterVerito EDOUARD Work Phone: [phone]-Nvwyv Medicine at [facility] Start: 09-19-2025 End: 15-41-4867Bjmucpvne Result EncounterSteph Keane NP Work Phone: [facility] External Department UnsolicitedStart: 09-19-2025 End: 57-30-5983Ihlgfzywe Result EncounterSteph Keane NP Work Phone: [facility] External Department UnsolicitedStart: 09-17-2025 End: 80-23-8871Yvxoec Breanna CAGE Work Phone: [phone]-Gijag Medicine at [facility] Comment on above:Essential hypertension affecting in third trimester Start: 09-16-2025 End: 96-28-4468hrgcqvhftgPXXCY FAZIONot AvailableStart: 09-16-2025 End: 27-20-1587Qcnwifty flow sheetCorey Kiesha DO Work Phone: [facility]atti OBGYNComment on above:29 weeks gestation of ([facility]); Third trimester ([facility]); Hypertension affecting , antepartum ([facility]); Gestational diabetes mellitus (GDM), antepartum, gestational diabetes method of control unspecified([facility])Start: 09-16-2025 End: 32-69-9646Lnxprg flowsheetCorey Kiesha DO Work Phone: [facility]BGYNStart: 09-16-2025 End: 87-51-9634Pkkuww flowsheetCorey Kiesha DO Work Phone: [facility]BGYNStart: 09-16-2025 End: 87-01-8767Elcjhjuej Nirmal Harris [facility]- [facility]art: 09-15-2025 End: 12-01-5195BlpfpvMika Springer PA-C Work Phone: [phone]-Bjmrm Medicine at [facility] Comment on above:Essential hypertension affecting in third trimester Start: 09-10-2025 End: 56-10-4973Gflomh outpatient visit 25 minutesMadhuri Monroy MD Work Phone: [facility] [place]: 28 weeks gestation of (Primary Dx); Insulin controlled gestational diabetes mellitus (GDM) in second trimester; Essential hypertension affecting in third trimesterStart: 09-10-2025 End: 07-36-0143ywqgajupeuIJXYZMSP P DOCHEVABarn[facility] Start: 09-04-2025 End: 79-12-9607Rcywzq consultation new/estab patient 60 Annalee Denise MD Work Phone: [phone]-Pyxnj Medicine at [facility] Comment on above:Diet controlled gestational diabetes mellitus (GDM) in second trimester (Primary Dx); Essential hypertension affecting in third trimesterStart: 09-04-2025 End: 45-31-6249igdciugveeRIXGZGNona [facility] Southtart: 09-03-2025 End: 92-48-3046Mhlkxdnw flow sheetSteph Keane INSPECTION CLERK Work Phone: NONY Patti OBGYNComment on above:Hypertension affecting , antepartum (HHS-HCC) (Primary Dx); 27 weeks gestation of (HHS-HCC); Second trimester (HHS-HCC)Start: 09-03-2025 End: 18-36-6259gsnnxkapuzGCTVQBGU EBERLYNot AvailableStart: 09-03-2025 End: 25-73-0268Voldsz flowsheetSteph Keane INSPECTION CLERK Work Phone: [facility] [place] OBGYNStart: 09-03-2025 End: 68-76-2467Sysohrauf Result EncounterCorey Kiesha DO Work Phone: noms External Department UnsolicitedStart: 09-03-2025 End: 59-66-2178Sjmcoqrlo Result EncounterCorey Kiesha DO Work Phone: noms External Department UnsolicitedStart: 09-01-2025 End: 35-28-8883Krnlyzvid encounterCha Harris RNMaternal- Medicine at [facility] Centertart: 08-29-2025 End: 13-97-7558Mszymwkdm Result EncounterSteph Keane NP Work Phone: noms External Department UnsolicitedStart: 08-29-2025 End: 49-85-4127Cimcqypsi Result EncounterSteph Keane NP Work Phone: noms External Department UnsolicitedStart: 08-27-2025 End: 35-21-0453ywkddtpyweJTXODYTQ EBERLYNot AvailableStart: 08-27-2025 End: 10-75-1296Utnkqnyz flow sheetSteph Keane INSPECTION CLERK Work Phone: NOMS Patti OBGYNComment on above:26 weeks gestation of (HHS-HCC); Second trimester (HHS-HCC); induced hypertension, antepartum (HHS-HCC); Gestational diabetes mellitus (GDM) in second trimester, gestational diabetes method of control unspecified (HHS-HCC)Start: 08-27-2025 End: 25-20-8840Qggkik flowsheetSteph Elsa INSPECTION CLERK Work Phone: NOHK Patti OBGYNStart: 08-27-2025 End: 77-66-2340Ajkobl flowsheetSteph Keane INSPECTION CLERK Work Phone: NOFS Patti OBGYNStart: 08-27-2025 End: 20-75-1720Doinqpcdz Result EncounterSteph Keane INSPECTION CLERK Work Phone: noms External Department UnsolicitedStart: 08-25-2025 End: 81-61-9109Dgffgabbu Result EncounterGeneric External Data ProviderNOMS External Department UnsolicitedStart: 08-25-2025 End: 99-27-1698Zjsvfmtkr Result EncounterGeneric External Data ProviderNOMS External Department UnsolicitedStart: 08-24-2025 End: 67-22-4537sonajbslfzQjggob M Frey RN Work Phone: [phone]-Zyajv Medicine at [facility] Comment on above:Gestational diabetes mellitus (GDM) in second trimester, gestational diabetes method of control unspecifiedStart: 08-21-2025 End: 93-68-4125Lugxh abstractingScanning Provider ExternalMaternal- Medicine at [facility] Centertart: 08-18-2025 End: 64-20-4681Ixlbm Aura Monroy MD Work Phone: [phone]-Glwdw Medicine at [facility] Start: 08-15-2025 End: 76-76-2557aupujwqcevGVGCFFKG EBERLYFacility:FTMCStart: 08-12-2025 End: 72-59-4367Npaylqrv flow sheetCorey Kiesha DO Work Phone: noms [place] OBGYNComment on above:24 weeks gestation of ([facility]); Second trimester ([facility]); Elevated glucose tolerance testStart: 08-12-2025 End: 96-56-9440eihilzogpjNLLJH FAZIONot AvailableStart: 08-12-2025 End: 78-85-9266pskjppeopiWaqdr Bryant MANISHAOFacility:FTMCStart: 08-01-2025 End: 39-18-0499siezddovnpJ KENNETH BELTRANFacility:FTMCStart: 07-30-2025 End: 22-22-0121Fnszoav encounter statusGemartha Hurtado Ruby DO Work Phone: [facility] Work Phone: Start: 07-30-2025 End: 85-02-8885Wlyfwhac preventive med est patient 18-39 yrsGeorsherita Hurtado Charlottecarol DO Work Phone: noms [facility] 230Comment on above: Wellness examination (Primary Dx); Hypertension, unspecified type ; Lipid screeningStart: 07-30-2025 End: 01-90-2964jwvxpwghvdLZKOHR R KAFTANNot AvailableStart: 07-30-2025 End: 46-93-9848Qbnqfp flowsheetEliceo Hurtado Ruby DO Work Phone: noms [facility] 230Start: 07-30-2025 End: 87-06-5981Qewbxt flowsreynoldEliceo Hurtado Ruby DO Work Phone: noms [facility] 230Start: 07-15-2025 End: 95-20-5632Fccsqsfn flow sheetCorey Kiesha DO Work Phone: NOGP [place] OBGYNComment on above:20 weeks gestation of ([facility]); Second trimester ([facility]); Diabetes mellitus screeningStart: 07-15-2025 End: 93-73-6943crqfsaokvfRJDOJ FAZIONot AvailableStart: 07-15-2025 End: 84-12-4987Uvasxwdis Result EncounterCorey Kiesha DO Work Phone: NOFZ External Department UnsolicitedStart: 07-15-2025 End: 02-94-5870Pwkrffscd Result EncounterCorey Kiesha DO Work Phone: NOMS External Department UnsolicitedStart: 06-22-2025 End: 85-00-7574Smmyjfnk flow sheetCorey Kiesha DO Work Phone: NOXV [place] OBGYNComment on above:Sinusitis, unspecified chronicity, unspecified location (Primary Dx); Second trimester ([facility]); 17 weeks gestation of ([facility]); Screening, , for anatomic survey ([facility])Start: 06-22-2025 End: 29-99-7425fwodvgbwxpWYAGT FAZIONot AvailableStart: 06-22-2025 End: 41-66-2943Rvhxhi flowsheetCorey Kiesha DO Work Phone: NOFH [place] OBGYNStart: 06-22-2025 End: 58-06-1184Sbkfrc flowsheetCorey Kiesha DO Work Phone: NOUC Patti OBGYNStart: 06-22-2025 End: 19-77-5372Voudgcdp Result EncounterCorey Kiesha DO Work Phone: NOJG External Department UnsolicitedStart: 05-25-2025 End: 28-88-6163hmatgbvgwpQPIIC FAZIONot AvailableStart: 05-25-2025 End: 93-44-9307Goxzypha flow sheetCorey Kiesha DO Work Phone: NOCS BCP OBComment on above:Nonintractable episodic headache, unspecified headache type (Primary Dx); Second trimester ([facility]); 13 weeks gestation of ([facility])Start: 05-25-2025 End: 23-98-9193Zpzsaw flowsheetCorey Kiesha DO Work Phone: NOMS BCP OBStart: 05-25-2025 End: 55-46-3663Ywkdpe flowsheetCorey Kiesha DO Work Phone: NOMS BCP OBStart: 05-04-2025 End: 99-69-8379Cbgydpyna Result EncounterCorey Kiesha DO Work Phone: NOMS External Department UnsolicitedStart: 05-04-2025 End: 85-76-5225Kwvufooty Result EncounterCorey Kiesha DO Work Phone: noms External Department UnsolicitedStart: 05-01-2025 End: 21-06-6955Nweqqfajg Result EncounterCorey Kiesha DO Work Phone: noMS External Department UnsolicitedStart: 05-01-2025 End: 32-93-7496Xgpkdwoev Result EncounterCorey Kiesha DO Work Phone: noms External Department UnsolicitedStart: 05-01-2025 End: 14-77-7355zzwzsucdaeOPCMGK Jose Angel AvailableStart: 05-01-2025 End: 92-15-1368Mdxihj outpatient visit 5 minutesNoms Bcp Ob Kiesha NurseNOMS BCP OBComment on above:GA: 4e6rKilha: 03-13-2025 End: 28-06-1070lnfoxyqlshNwgvk R FAZIOFacility:FTMCStart: 03-13-2025 End: 50-78-2440Rtdatsb encounter procedureCorey R KIESHA [facility] Start: 02-02-2025 End: 36-75-4282Rqdanya encounter procedureDenny Rodríguez MD Work Phone: [facility] [place] Work Phone: Start: 02-02-2025 End: 15-16-0510zuxotiqumpBmeaf Baxter MD Work Phone: [facility] Work Phone: Start: 01-22-2025 End: 42-47-4425jdpoaromrkOjaqy R FAZIOFacility:FTMCStart: 01-22-2025 End: 62-74-5683Cdzyfbl encounter procedureCorey R KIESHA [facility] Start: 01-19-2025 End: 11-87-3856Veasqo outpatient visit 15 minutesCorey Kiesha DO Work Phone: noms BCP OBComment on above:Pain in female genitalia on intercourse; EndometriosisStart: 01-19-2025 End: 34-54-9333wsfwnjnrqpMQUQM FAZIONot AvailableStart: 01-19-2025 End: 74-09-2941Fxmeje flowsheetCorey Kiesha DO Work Phone: NOMS BCP OBStart: 01-19-2025 End: 73-11-3420Kcfprf flowsheetCorey Kiesha DO Work Phone: NOMS BCP OBStart: 12-30-2024 End: 50-23-8391xnnftitwneXPHHJL R TREYANNot AvailableStart: 12-30-2024 End: 79-47-6406Ayaclm outpatient visit 15 minutesGeorge R Charlottecarol DO Work Phone: NOBE [facility] 230Comment on above:Hypertension, unspecified type (CMS/HCC) (Primary Dx); Paroxysmal tachycardia, unspecified (CMS/HCC); Chronic right shoulder pain; Scapular dyskinesisStart: 08-18-2024 End: 46-08-9118Rjyqjs flowsheetCorey Kiesha DO Work Phone: noMS BCP OBStart: 08-18-2024 End: 51-13-8547Fflbma flowsheetCorey Kiesha DO Work Phone: noMS BCP OBStart: 08-18-2024 End: 67-51-2113Vqnypdptv Result EncounterCorey Kiesha DO Work Phone: noms External Department UnsolicitedStart: 08-18-2024 End: 74-65-9167Lbkyhla encounter procedureCorey Kiesha DO Work Phone: [facility] Work Phone: Start: 08-18-2024 End: 34-02-5602Rftlojql preventive med est patient 18-39 yrsCorey Kiesha DO Work Phone: NOMS BCP OBComment on above:Well woman exam with routine gynecological examStart: 07-22-2024 End: 45-36-4600Qxqstk flowsheetCorey Kiesha DO Work Phone: NOMS BCP OBStart: 07-22-2024 End: 08-43-9692Czpcfi flowsheetCorey Kiesha DO Work Phone: NOZY BCP OBStart: 07-22-2024 End: 07-11-5135Lyopsr outpatient visit 15 minutesCorey Kiesha DO Work Phone: NOMS BCP OBComment on above:Dysmenorrhea, unspecified Start: 80-23-8119Qamtvkyzo encounterMegan Billow DO Work Phone: [facility]art: 84-06-1781Jtizllpmu encounterMegan Billow DO Work Phone: [facility]sp[facility] HospitalComment on above:Surgery CancelledStart: 02-13-2024 End: 32-81-4473Khmyinqyb Result EncounterCorey Kiesha DO Work Phone: NOMG External Department UnsolicitedStart: 02-13-2024 End: 63-80-1585Dduezfnma Result EncounterCorey Kiesha DO Work Phone: noms External Department UnsolicitedStart: 01-15-2024 End: 34-81-9484Cycnkjjlq Result EncounterCorey Kiesha DO Work Phone: noms External Department UnsolicitedStart: 01-15-2024 End: 80-77-3078Dnodifcrb Result EncounterCorey Kiesha DO Work Phone: noms External Department UnsolicitedStart: 01-10-2024 End: 88-98-1573Tmryff outpatient visit 15 minutesCorey Kiesha DO Work Phone: NOMS BCP OBComment on above:Menorrhagia with regular cycle; Pelvic pain in female; Uses controlStart: 45-75-9195DxazxyGfdrn Billow DO Work Phone: [facility] HospitalComment on above:Refill Request Start: 45-66-3193iuyhijnvgvZidzn Billow DO Work Phone: Obstetrics/GynecologyComment on above:painStart: 12-10-2023 End: 02-98-1850zawksdjqtiWMFLA BILLOWFacility:[facility] Hospitaltart: 89-67-5334oyznoauzcfEiagi Billow DO Work Phone: REM PIRES MCStart: 94-15-6686Uczqvxv encounter procedureMegan Billow DO Work Phone: Obstetrics/GynecologyComment on above:office visit Start: 09-12-2023 End: 99-58-5698Wrheqbvpb department patient Berny Loco [facility] Start: 57-60-8972Iaewpx pelvic examinationMegan Billow DO Work Phone: Obstetrics/GynecologyComment on above:Pelvic pain in female (Primary Dx)Start: 44-43-7256fgaejjlwpgIcmtq Billow DO Work Phone: Obstetrics/GynecologyComment on above:painful periods Start: 08-24-2023 End: 44-62-5922Rlusxl pelvic examinationErin Vicker UNDERCOVER 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 Work Phone: GynecologyComment on above:High-tone pelvic floor dysfunction (Primary Dx); Chronic pelvic pain in femaleStart: 08-24-2023 End: 09-07-3030Ttbwgbafxwqr consultation with Kelton Downs APRN.CLOUD OPERATIONS ENGINEER Work Phone: [facility] MAINStart: 08-24-2023 End: 90-79-2558cjiwrlgfdpLZXZ REAPERFacility:[facility] HospitalStart: 32-04-6957lasyzkndazTomoc Billow DO Work Phone: Obstetrics/GynecologyComment on above:painful period Start: 28-59-8173Fbtuxkyno encounterMegan Billow DO Work Phone: GynecologyComment on above:Insurance Authorization (Orilissa)Start: 07-16-2023 End: 86-97-3543mbtcsyfzkdURNDA BILLOWFacility:[facility] Hospitaltart: 06-12-2023 End: 44-42-0623zwhrlzlijkHPDAQ BILLOWFacility:[facility] Hospitaltart: 06-12-2023 End: 39-04-0566Iubcunjocc hospital visit by physicianandra [facility] Suki (I-Stat/1.5t) RadiologyComment on above:Pelvic and perineal pain [R10.2]Start: 05-17-2023 End: 74-61-6914Iulsru pelvic examinationMegan Billow DO Work Phone: Obstetrics/GynecologyComment on above:Endometriosis (Primary Dx); Pelvic and perineal painStart: 05-17-2023 End: 24-76-9731Xtaiyifmmvtt consultation with kikaCharlene Rodriguez DO Work Phone: Dre [facility]CHULETAHARRINGTON MEMORIAL HOSPITALtart: 05-17-2023 End: 55-66-7298pjknfhytneCKKGS ALAN BAXTERFacility:[facility] Start: 55-44-7924Djybqqprj encounterMekevin Billfanny DO Work Phone: GynecologyComment on above:Vaginal BleedingStart: 05-01-2023 End: 86-88-2850zybqzrfmufXYFHOYang Stanleycility:[facility] Start: 05-01-2023 End: 30-87-6471Cuhvaqh encounter Lisa Downs APRN.CLOUD OPERATIONS ENGINEER Work Phone: GynecologyComment on above:Chronic pelvic pain in female (Primary Dx); Constipation, unspecified constipation type; High-tone pelvic floor dysfunction; Diastasis of rectus abdominis; Dysmenorrhea; Other specified dyspareuniaStart: 94-17-7610lqslvqnqssCewqi Billow DO Work Phone: Obstetrics/GynecologyComment on above:painfulStart: 01-31-2023 End: 73-54-9866Cushfjweo department patient visitAstrit Phuc [facility] Start: 12-30-2022 End: 32-17-3940Wwxhbyc encounter procedureAstrit Phuc [facility] Start: 12-05-2022 End: 96-50-2149etlovoyoyaDAWNProvidence St. [facility] SHSStart: 12-05-2022 End: 87-02-0442Rdzdzz outpatient visit 15 minutesGin Leonorsrinath DAY Work Phone: [facility] HospitalComment on above:Pre- eclampsia, severe, delivered (Primary Dx)Start: 11-28-2022 End: 03-26-6621Kvqhyysnti and management of inpatientNemours Children's HospitalStart: 11-28-2022 End: 00-20-8737Cjvqqkxkvh and management of inpatientFranciscan Health Hammond Work Phone: [facility] POSTPARTUMComment on above:Preeclampsia, severe, third trimester (Primary Dx)Start: 11-28-2022 End: 74-99-3076Cur-admission assessmentGregrosa DORSEY [facility] Start: 11-27-2022 End: 91-45-8876XE TriageGregrosa DORSEY [facility] Start: 07-14-2022 End: 12-15-1421Xmdgytthw department patient visitCharlotteshayjunior Villagomez [facility] Start: 07-14-2022 End: 81-36-1752ST TriageNathan POP [facility] Start: 04-25-2022 End: 55-59-0078Hfeeery encounter procedureCAMERON DITTY [facility] Start: 04-18-2022 End: 37-16-4553ubbzbghwrhXjuxkfu Ditty Other [employer] Other Start: 58-56-0060Jvsneer encounter procedureCamdorene CarrilloyFPG GastroenterologyStart: 05-58-9930Lvmbwp outpatient visit 15 minutes Charlene Rodriguez DO Work Phone: [phone]-DVDLI-[address] Work Phone: Start: 09-29-2021 End: 86-32-5196mwxjwoihosWEJUD ROWENA [facility] Sacramentopearl [facility] HospitalStart: 09-29-2021 End: 26-32-4255owukbhknokFMALU ROWENAThe Jewish Hospital HospitalStart: 88-36-3445MDMBEEawmd Billow DO Work Phone: [phone]-JHQMN-[address] Work Phone: Start: 52-81-5208IUBVHTSSUK, Provider: Charlene Rodriguez, Status: Pen, Time: 2:45 Ina Chau MD Work Phone: [phone]-Ihxbylr-[place] Work Phone: Start: 30-32-5129Fmlwo Oswaldo Chau MD Work Phone: [phone]-Ypapggk-[place] Work Phone: Procedures DateProcedureProcedure DetailPerforming ClinicianStart: 19-11-2753PB OB BPP W NON-STRESSKristina Elsa INSPECTION CLERK Work Phone: Start: 60-24-9678Vfzgj dip stick/tablet rgnt non-auto w/o micrscpCorey Kiesha DO Work Phone: Start: 75-88-8455CA OB BPP W NON-STRESSKristina Elsa INSPECTION CLERK Work Phone: Start: 10-74-9342DG OB BPP W NON-STRESSKristina Elsa INSPECTION CLERK Work Phone: Start: 95-97-8423Qpowp dip stick/tablet rgnt non-auto w/o micrscpCorey Kiesha DO Work Phone: Start: 11-23-6462MHO BUNCorey Kiesha DO Work Phone: Start: 42-99-4249ABA URIC ACIDCorey Kiesha DO Work Phone: Start: 58-90-9429SFY ALTCorey Kiesha DO Work Phone: Start: 23-84-2918RUK ASTCorey Kiesha DO Work Phone: Start: 75-10-1584LCY CREATININECorey Kiesha DO Work Phone: Start: 72-92-7436WFR URINE T PROTEIN CREAT RATIOCorey Kiesha DO Work Phone: Start: 25-41-5774Ddvvq dip stick/tablet rgnt non-auto w/o micrscpKristina Elsa INSPECTION CLERK Work Phone: Start: 90-98-0851IOF TOTAL PROTEIN 24 HOUR URINE Generic External Data ProviderStart: 71-74-3385MB OB BPP W NON-STRESS Steph Elsa INSPECTION CLERK Work Phone: Start: 30-23-4011PRU URINE T PROTEIN CREAT RATIO Generic External Data ProviderStart: 23-29-8629VMR CBC WITH AUTO DIFFGeneric External Data ProviderStart: 41-22-1754Jzktz dip stick/tablet rgnt non-auto w/o micrscpKristina Elsa INSPECTION CLERK Work Phone: Start: 21-62-1318Wlgysqjy identified in Urine by CultureGeneric External Data ProviderStart: 26-44-5238Pnlingm quantitative blood xcpt reagent stripNot In System Ref ProvStart: 75-89-3663RVHLVA HOUR GLUCOSE TOLERANCE 100 GM LOADNot In System Ref ProvStart: 57-42-9868Aislw dip stick/tablet rgnt non-auto w/o micrscpCorey Kiesha DO Work Phone: Start: 49-17-2027KKG 1H POST 50G LOADNot In System Ref ProvStart: 66-64-3350AYD, SERUM, OPEN SPINA BIFIDACorey Kiesha DO Work Phone: Start: 38-11-6704Wpjgl dip stick/tablet rgnt non-auto w/o micrscpCorey Kiesha DO Work Phone: Start: 72-86-5396DYVQHRVOQ VAGINITIS (HTRX)Nathan Kiesha DO Work Phone: Start: 25-57-7341Qvdie dip stick/tablet rgnt non-auto w/o micrscpCorey Kiesha DO Work Phone: Start: 08-92-4895Afzvo dip stick/tablet rgnt non-auto w/o micrscpCorey Kiesha DO Work Phone: Start: 88-16-1304Mrsoxphu screenMadhuri Monroy MD Work Phone: Start: 45-96-1820Aifd scrn 1+ class nonchromoNot In System Ref ProvStart: 15-50-7154Dnwqzvjezw glycosylated z3bDvtgk R Kiesha DO Work Phone: Start: 36-93-9113Tdwrmjsly c antibodyNot In System Ref ProvStart: 14-04-5091OPK 1&2 AB/AG SCREEN (P24 AG)Not In System Ref ProvStart: 39-34-2688Vbos ia hepatitis b surface antigenNot In System Ref ProvStart: 50-68-9204OIVE AND SCREENNot In System Ref ProvStart: 50-60-2798TLD TESTCorey Kiesha DO Work Phone: Start: 21-73-3475Ghrqc dip stick/tablet rgnt non-auto w/o micrscpCorey Kiesha DO Work Phone: Start: 68-45-8754GP OB TRANSVAGINALCorey Kiesha DO Work Phone: Start: 38-36-2056YLU,APTIMA HPV,AGE GDLNCorey Kiesha DO Work Phone: Start: 59-60-4536Mkpnussykym observation [Identifier] in Cervix by Cyto stainCorey Kiesha DO Work Phone: Start: 12-65-0521UCD 12-LEADCorey Kiesha DO Work Phone: Start: 66-20-4044UZ PELVIS W/ TRANSVAGINALCorey Kiesha DO Work Phone: Start: 50-47-6956Mlkb cerv/vag auto thin layer prep mnl screenCorey Kiesha DO Work Phone: Start: 29-87-1526Rlj pelvis w/o & w/contrast material Charlene Billow DO Work Phone: Start: 90-80-7754Bwihn count platelet automatedMichael O'Cormier UNDERCOVER COP - STEAM FRAME OPERATOR Work Phone: Start: 61-46-7009Hgfgj count platelet automatedCassie Constantino MD Work Phone: Start: 08-30-8073Gcjvu streptococcus group b amplified probe tqCassie Constantino MD Work Phone: Start: 19-26-7520KAL and Rh group [Type] in Blood by Confirmatory Carmine Constantino MD Work Phone: Start: 13-94-9100Stsae typing serologic Cait Constantino MD Work Phone: Start: 66-18-3504Qocefchoawtwy metabolic panelCassie Constantino MD Work Phone: Start: 32-45-4221Zfihdjfk hiv-1&hiv-2 single result Megadyne [id number]: 46-08-8447Avmt ia hepatitis b surface antigenMegaalexis [id number]: 31-61-6046StvwqfhighRBNJVNW EDWARD Start: 08-30-2020 End: 44-46-8147Hwfypxwd screenComment on above:Performed By: #### T+S #### [facility] [address] [place], [place] [address]Llzla Comment: TEST TYPE + SCREEN WAS CANCELLED, 08/30/2020 13:37 JOP.Performed By: #### T+S #### [facility] [address] [place], [place] [address]Lyudb: 26-40-9774YXJCC SHOULDER OPEN DISTAL CLAVICLE EXCISION 1CAMERON LOVEFittingRoom Comment on above:RIGHT SHOULDER OPEN DISTAL CLAVICLE EXCISIONRIGHT SHOULDER OPEN DISTAL CLAVICLE EXCISIONAppendectomyCAMERON LOVEFittingRoom betamethasone (substance)Fredi WILLIAN comment on above:Dose #1: 11/27/22ColonoscopyCAMERON EDWARD Endoscope, device (physical object)[place] LaparoscopyTeri Chau MD Work Phone: Plan of Treatment DateCare ActivityDetailAuthorStart: 56-59-1780Vidqfp Vaccines (1 of 2)Zoster Vaccines (1 of 2)[facility] HealthStart: 32-95-2494Xobqegsja for malignant neoplasm of cervixNOMS HealthcareStart: 37-74-6547Izgqtsrdx for malignant neoplasm of cervixPap SmearNOMS HealthcareStart: 81-32-2300Trtyy BMI ScreeningAdult BMI ScreeningProBucyrus Community Hospitalca Health SystemStart: 25-96-2973Mtofocv ScreeningTobacco ScreeningProBucyrus Community Hospitalca Health SystemStart: 32-09-4116Kbltx BMI ScreeningAdult BMI ScreeningProBucyrus Community Hospitalca Health SystemStart: 33-91-4585Ztmic BMI ScreeningAdult BMI ScreeningProMedica Health SystemStart: 11-03-2025 End: 03-02-8755Lrxefhe encounter oilmcpphg34/09/2025 2:30 PM EST Office Visit Maternal- Medicine at [facility] [address] [place] [address] Chivo Springer PA-C [address] [facility] [address] [address] [facility] at [facility] Centertart: 10-14-2025 End: 00-25-1807Wepytku encounter ctxtokjhz13/19/2025 3:30 PM EST Routine [facility] Patti YOUNGN [address] [place], [id number] Nathan Pop DO [address] [place] [address] NOMShalonda IYERGYNStart: 10-08-2025 End: 92-37-1105Erhkttu encounter yntkpcmbr40/13/2025 8:00 AM EST Appointment Maternal Medicine [place] [address] [facility] [address] [place] [phone] Medicine [place] HeadStart: 10-06-2025 End: 62-42-1921Clznxkldtotb consultation with gkqheyu6310/06/2025 2:30 PM EST Telemedicine Maternal- Medicine at [facility] [address] [place] [address] Chivo Springer PA-C [address] [facility] [address] [facility] at [facility] Centertart: 10-05-2025 End: 93-47-9618Dfockyb encounter dcafrnzus65/10/2025 3:00 PM EST Office Visit Maternal- Medicine at [facility] [address] [place] [address] Chivo Springer PA-C [address] [facility] [address] [address] [facility] at [facility] Centertart: 10-05-2025 End: 88-48-9349Bumobhwcxjrf consultation with xcavlcs8410/05/2025 3:00 PM EST Telemedicine Maternal- Medicine at [facility] [address] [place] [address] Chivo Springer PA-C [address] [address] [facility] at [facility] Centertart: 49-94-5755MNO ( or age 60+ yrs) (1 - Risk 1-dose series)RSV ( or age 60+ yrs) (1 - Risk 1-dose series)[facility] Healt[facility]art: 09-30-2025 End: 26-53-6972Rbmbtub encounter procedureNOMS Patti YOUNGNComment on above: ArrivedStart: 09-16-2025 End: 40-55-1109NF biophysical profile w non stress testUS biophysical profile w non stress test Imaging Routine Gestational diabetes mellitus (GDM),antepartum, gestational diabetes method of control unspecified ([facility]) Expected: 09/16/2025, Expires: 09/16/2026NOMS HealthcareComment on above:Expected: 09/16/2025, Expires: 09/16/2026Start: 09-15-2025 End: 63-41-5707Lqukyhi encounter igqouunea85/21/2025 2:50 PM EDT Routine NOMShalonda MOODY [address], [id number] Zenobia Gutierrez PA [address] [place] [address] NOMShalonda Izaguirrert: 09-10-2025 End: 24-54-9602Kaissgirwbhd consultation with jrjcgtb5109/10/2025 11:00 AM EDT Telemedicine [facility] [place] [address] [phone] Madhuri Monroy MD [address] [facility] [place], [address] [place] [address] [facility] HeadStart: 09-10-2025 End: 80-27-8452Ypulshn encounter rqhkmgpmo64/16/2025 9:45 AM EDT Appointment [facility] [place] [address] [phone] [facility] 09-07-2025 End: 80-98-2254Nwoklvk encounter procedureNOMS BCP OBStart: 09-04-2025 End: 72-15-1713Hykrues encounter xhvhgscce04/10/2025 3:00 PM EDT Office Visit Maternal- Medicine at [facility] [address] [facility] [place] [phone] Mine Denise MD [address] [facility] VOGT[place], [address] [place] [address] [facility] at [facility] 09-03-2025 End: 57-09-7276Apajbpe encounter procedureNOMS [place] OBGYNComment on above: [facility]: 08-27-2025 End: 25-95-4639Fbhxmvr encounter yhecvcjrp50/02/2025 3:20 PM EDT Routine NOMShalonda [place] OBGYN [address] [place], [phone] Steph Keane NP [address] [place] [address] NOMS Patti Izaguirrert: 08-27-2025 End: 28-70-8732Rmfbhyh aminotransferase [Enzymatic activity/volume] in Serum or PlasmaALT Lab Routine induced hypertension, antepartum (HHS-HCC) Expected: 08/27/2025 (Approximate), Expires: 08/27/2026[facility] HealthcareComment on above:Expected: 08/27/2025 (Approximate), Expires: 08/27/2026Start: 08-27-2025 End: 54-86-7027Twravkqfb aminotransferase [Enzymatic activity/volume] in Serum or PlasmaAST Lab Routine induced hypertension, antepartum (HHS-HCC) Expected: 08/27/2025 (Approximate), Expires: 08/27/2026[facility] HealthcareComment on above:Expected: 08/27/2025 (Approximate), Expires: 08/27/2026Start: 08-27-2025 End: 72-73-4660NCV W Auto Differential panel - BloodCBC and differential Lab Routine induced hypertension, antepartum (HHS-HCC) Expected: 12/2024 (Approximate), Expires: 08/27/2026[facility] HealthcareComment on above: Expected: 08/27/2025 (Approximate), Expires: 08/27/2026art: 08-27-2025 End: 15-41-7307Kxsgabntrz [Mass/volume] in Serum or PlasmaCreatinine Lab Routine induced hypertension, antepartum (HHS-HCC) Expected: 08/27/2025 (Ap proximate), Expires: 08/27/2026[facility] Healthcare Work Phone: comment on above:Expected: 08/27/2025 (Approximate), Expires: 08/27/2026Start: 08-27-2025 End: 01-32-2660Sdamkwf dehydrogenase [Enzymatic activity/volume] in Serum or Plasma by Lactate to pyruvate reactionLactate dehydrogenase Lab Routine induced hypertension, antepartum (HHS-HCC) Expected: 08/27/2025, Expires: 08/27/2026[facility] HealthcareComment on above:Expected: 08/27/2025, Expires: 08/27/2026Start: 08-27-2025 End: 58-64-6860Fypiwzu, urine, 24 hourProtein, urine, 24 hour Lab Routine induced hypertension, antepartum (HHS-HCC) Expected: 08/27/2025 (Approximate), Expires: 08/27/2026[facility] HealthcareComment on above:Expected: 08/27/2025 (Approximate), Expires: 08/27/2026Start: 08-27-2025 End: 57-38-1320Ka and pttPt and ptt Lab Routine induced hypertension, antepartum (HHS-HCC) Expected: 08/27/2025, Expires: 08/27/2026[facility] Comment on above:Expected: 08/27/2025, Expires: 08/27/2026Start: 08-27-2025 End: 11-23-7265Irqgp [Mass/volume] in Serum or PlasmaUric acid Lab Routine induced hypertension, antepartum (HHS-HCC) Expected: 08/27/2025 (Bouchra roximate), Expires: 08/27/2026[facility] HealthcareComment on above:Expected: 08/27/2025 (Approximate), Expires: 08/27/2026Start: 08-27-2025 End: 17-19-8988Ocxs nitrogen [Mass/volume] in Serum or PlasmaBUN Lab Routine induced hypertension, antepartum (HHS-HCC) Expected: 08/27/2025, Expires:08/27/2026[facility] HealthcareComment on above:Expected: 08/27/2025, Expires: 08/27/2026Start: 08-27-2025 End: 10-23-3138CD biophysical profile w non stress testUS biophysical profile w non stress test Imaging Routine induced hypertension, antepartum ([facility]) Gestational diabetes mellitus (GDM) in second trimester, gestational diabetes method of control unspecified ([facility]) Expected: 08/27/2025 (Approximate), Expires: 02/25/2026[facility] HealthcareComment on above:Expected: 08/27/2025 (Approximate), Expires: 02/25/2026Start: 08-24-2025 End: 20-11-5736wadzrlwbxy99/29/2025 1:30 PM EDT Support Visit Maternal- Medicine at [facility] [address] [place] [place] [phone] Teena Sarmiento, RN [address] [facility], [address] [place] [address] Kerline Augustin, RD [address], [address] [place] [address] M[facility]- Medicine at [facility]: 08-24-2025 End: 56-82-1477Itgcemf encounter wmpkwcocu99/29/2025 11:00 AM EDT Office Visit NOMS BCP OB [address] [facility] [phone] Nathan Pop, DO [address] [place] [address] NOMS BCP OBStart: 08-12-2025 End: 87-97-0778Oxyaynj encounter fnfiuijwe84/17/2025 2:40 PM EDT Routine NOMShalonda YOUNGN [address], [id number] Nathan Pop, DO [address] [place] [address] NOMShalonda [place] OBGYNStart: 08-12-2025 End: 04-17-1361Lmjmrhjblhm of glucose 3 hours after glucose challenge for glucose tolerance testGlucose tolerance, 3 hours Lab Routine Elevated glucose tolerance test Expected: 08/12/2025 (Approximate), Expires: 08/12/2026[facility] Work Phone: comment on above:Expected: 08/12/2025 (Approximate), Expires: 08/12/2026Start: 08-12-2025 End: 10-55-5411Ubxbrrlqkiat / ancillary services iatthovwun51/17/2025 2:00 PM EDT Ancillary Procedure NOMS Patti YOUNGN [address] [place] [address] [place] [address] YVWM Patti OBGYNStart: 07-31-2025 End: 86-06-4792SNR W Auto Differential panel - BloodCBC and differential Lab Routine Hypertension, unspecified type Wellness examination Expected: 07/31/2025 (Approximate), Expires: 08/29/2025[facility] Work Phone: Comment on above:Expected: 07/31/2025 (Approximate), Expires: 08/29/2025Start: 07-31-2025 End: 58-24-5684Mfmcbpgprtvtt metabolic 2000 panel - Serum or PlasmaComprehensive metabolic panel Lab Routine Hypertension, unspecified type Wellness examination Expected: 07/31/2025 (Approximate), Expires: 08/29/2025[facility] HealthcareComment on above:Expected: 07/31/2025 (Approximate), Expires: 08/29/2025Start: 07-31-2025 End: 69-99-9847Ielut 1996 panel - Serum or PlasmaLipid panel Lab Routine Wellness examination Lipid screening Expected: 07/31/2025 (Approximate), Exp ires: 08/29/2025[facility] HealthcareComment on above:Expected: 07/31/2025 (Approximate), Expires: 08/29/2025Start: 07-30-2025 End: 10-42-8506Cwbftfm encounter dowelierb03/04/2025 3:40 PM EDT Office Visit [facility] [address] [address] [place] [address] Eliceo Beltran DO [address] [address] [place] [address] ArrivedNOCritical access hospital 230Comment on above:ArrivedStart: 62-98-8403JPQVW-19 Vaccine ( season)COVID-19 Vaccine ( season)[facility] HealthcareStart: 07-27-2025 Influenza vaccinationNOWY HealthcareStart: 07-15-2025 End: 56-32-9963Oqvvfxb encounter bsszgbzag94/20/2025 3:30 PM EDT Routine NOMS Patti OBGYN [address] [facility] [address] [place], [id number] Nathan Pop, [address] [place] [address] NOMS Patti OBGYNStart: 07-15-2025 End: 19-96-8187Taqstvpbzpwe / ancillary services rbubgirtsu87/20/2025 2:30 PM EDT Ancillary Procedure NOMS Patti OBGYN [address] [facility] [place] [phone] NOMS [place] OBGYNStart: 07-15-2025 End: 08-46-9677NXA panel - Blood by Automated countCBC Lab Routine Diabetes mellitus screening Expected: 07/15/2025 (Approximate), Expires: 07/15/2026[facility] Work Phone: comment on above:Expected: 07/15/2025 (Approximate), Expires: 07/15/2026Start: 07-15-2025 End: 55-90-2398Qxqgjcxflbk of glucose 1 hour after glucose challenge for glucose tolerance testGlucose tolerance, 1 hour Lab Routine Diabetes mellitus screening Expected: 07/15/2025 (Approximate), Expires: 07/15/2026[facility] HealthcareComment on above:Expected: 07/15/2025 (Approximate), Expires: 07/15/2026Start: 06-22-2025 End: 30-47-4266Wuxymjf encounter lklfbhobm39/28/2025 2:10 PM EDT Routine NOMS Patti OBGYN [address] [facility] [facility] [address] [place], [phone] Nathan Pop, [address] [place] [address] ArrivedNOMS Patit OBGYNComment on above:ArrivedStart: 06-22-2025 End: 66-72-9788Qhufc fetoprotein, maternalAlpha fetoprotein, maternal Lab Routine Second trimester ([facility]) 17 weeks gestation of ([facility]) Expected: 06/22/2025 (Approximate), Expires: 12/23/2025[facility] Healthcare Comment on above:Expected: 06/22/2025 (Approximate), Expires: 12/23/2025Start: 06-22-2025 End: 22-63-4165CH for pregnancyUS OB 14+ weeks anatomy scan Imaging Routine Screening, , for anatomic survey ([facility]) Expected: 06/22/2025, Expires: 09/22/2025[facility] Healthcare Work Phone: comment on above:Expected: 06/22/2025, Expires: 09/22/2025Start: 05-25-2025 End: 37-61-2125Jxjagrx encounter jnfapqkkc81/30/2025 2:40 PM EDT Routine NOMS BCP OB [address] [facility] [place] [phone] Nathan Pop, DO [address] [facility] [place] [address] NOMS BCP OBStart: 05-01-2025 End: 66-96-0147GHF/RhABO/Rh Lab Routine Missed menses , unspecified gestational age Expected: 05/01/2025 (Approximate), Expires: 05/01/2026[facility] HealthcareComment on above:Expected: 05/01/2025 (Approximate), Expires: 05/01/2026Start: 05-01-2025 End: 44-79-2286Unuch type and Indirect antibody screen panel - BloodType and screen Lab Routine Missed menses , unspecified gestational age Expected: 05/01/2025 (Approximate), Expires: 05/01/2026[facility] Healthcare Work Phone: comment on above:Expected: 05/01/2025 (Approximate), Expires: 05/01/2026Start: 05-01-2025 End: 21-34-9590Yulcp of abuse panel - Urine by Screen methodRapid drug screen, urine Lab Routine , unspecified gestational age Encounter for supervision of normal first in first trimester Expected: 05/01/2025 (Approximate), Expires: 05/01/2026N[facility] HealthcareComment on above:Expected: 05/01/2025 (Approximate), Expires: 05/01/2026Start: 01-19-2025 End: 26-39-4446Vdswzqj encounter procedureNOMS BCP OBComment on above:Arrived Start: 01-19-2025 End: 42-54-9973ZkhlxbumjtdeFdwvgkulpbuk Lab Routine Pain in female genitalia on intercourse Endometriosis Expected: 01/19/2025(Approximate), Expires: 01/19/2026 [facility] Work Phone: comment on above:Expected: 01/19/2025 (Approximate), Expires: 01/19/2026Start: 08-18-2024 End: 75-23-4094Omxrjcn encounter procedureNOMS BCP OBComment on above:Arrived Start: 42-20-5697Jiprstduh vaccinationTrinity Health System East Campustart: 07-22-2024 End: 63-69-8685EF for pregnancyUS PELVIS-TRANSVAG IF INDICATED Imaging Routine Dysmenorrhea, unspecified Expected: 07/22/2024 (Approximate), Expires: 07/22/2025[facility] Work Phone: comment on above:Expected: 07/22/2024 (Approximate), Expires: 07/22/2025Start: 06-23-2024 End: 94-51-0108Janfswp encounter octbnlkqb77/29/2024 10:30 AM EDT Office Visit Obstetrics/Gynecology [address] [address] Charlene Rodriguez DO [address] [place] [address] 2 WEEK POST OPObstetrics/GynecologyComment on above:2 WEEK POST OPStart: 05-27-2024 End: 43-23-6769Vzlwhddlb to same day surgery gfuzqx0505/27/2024 7:30 AM EDT - 05/27/2024 9:30 AM EDT Surgery [facility] [address] [place] [address] Charlene Rodriguez, DO [address] [place] [address] LAPAROSCOPY FULGURATION OR EXCISION OF LESIONS OF THE OVARY PELVIC VISCERA OR PERITONEAL SURFACE BY ANY METHODPike Community Hospital SurgeryComment on above:LAPAROSCOPY FULGURATION OR EXCISION OF LESIONS OF THE OVARY PELVIC VISCERA OR PERITONEAL SURFACE BYANY METHODStart: 05-27-2024 End: 43-09-9800Muag fulg/exc ovary viscera/peritoneal surfaceLAPAROSCOPY FULGURATION OR EXCISION OF LESIONS OF THE OVARY PELVIC VISCERA OR PERITONEAL SURFACE BYANY METHOD Endometriosis 05/27/2024 7:30 AM EDTME ORStart: 05-27-2024 Subsequent hospital visit by ghdifjhmj87/02/2024 7:30 AM EDT Hospital Encounter [facility] [address] [place] [address] Charlene Rodriguez, DO [address] [place] [address] [phone] (F ax) Endometriosis [N80.9][facility] SurgeryComment on above:Endometriosis [N80.9]Start: 48-77-3886Xxabwdlhh vaccinationInfluenza Vaccine (#1)[facility] HealthcareComment on above:Postponed from 07/27/2023 (Patient Refused)Start: 05-20-2024 End: 66-95-1782fhrvqtpopc83/25/2024 10:00 AM EDT [facility] FLUID DYNAMICIST [facility] [place] [facility] [address] [address] [place], Uro Etcher Hand Nurse [address] [address] RN GLENNGYN UROL [place] MOBComment on above:RN TEACHINGStart: 04-22-2024 End: 60-80-1271Wrhripa encounter seqjyvwby48/28/2024 9:00 AM EDT Office Visit NOM[facility] [address] [place] [phone] Denny Rodríguez MD [address] [place] [address] NOMS SEP FMStart: 89-57-4982TZqK,Tdap and Td Vaccines (7 - Td or Tdap)DTaP,Tdap and Td Vaccines (7 - Td or Tdap)[facility] SystemStart: 71-41-6397WBqB/Tdap/Td Vaccines (7 - Td or Tdap)DTaP/Tdap/Td Vaccines (7 - Td or Tdap)[facility]Start: 83-78-1814Xltbo microalbumin profileDTaP,Tdap,Td Vaccine (7 - Td or Tdap)[facility] Campustart: 01-30-2024 End: 76-99-6482Oyjsolq encounter bjwcvninf01/06/2024 11:10 AM EST Consult NOMS [facility] [address] [facility] [place] [address] Nathan Pop DO [address] [place] [address] NOMS [facility] OBStart: 01-15-2024 End: 96-82-0354Cpdoawosfghj / ancillary services mwjsmmkyub15/20/2024 8:00 AM EST Ancillary Procedure [facility] [address] [facility] [place] [address] NOMS [facility] OBStart: 01-10-2024 End: 38-76-2763ZS for pregnancyUS PELVIS-TRANSVAG IF INDICATED Imaging Routine Pelvic pain in female Expected: 01/10/2024 (Approximate), Expires: 01/10/2025 [facility] Work Phone: comment on above:Expected: 01/10/2024 (Approximate), Expires: 01/10/2025Start: 23-77-9736Gopyqjgdwq Health ScreeningBehavioral Health ScreeningTrinity Health System East Campustart: 39-40-1608Xzjcsbnqsm AssessmentDepression AssessmentCleGalion Hospitaltart: 95-39-6211Dczul-19 Vaccine ( season) Covid-19 Vaccine ( season)[facility] Campustart: 17-24-1152Viibzknit vaccinationTrinity Health System East Campustart: 18-16-2821CBATHKCATZ ASSESSMENTDEPRESSION ASSESSMENTTrinity Health System East Campustart: 98-82-0370Gyhbfrsow vaccinationInfluenza Vaccine (#1)[facility] HospitalStart: 77-60-8325KBD, Provider: Charlene Rodriguez, Status: Pen, Time: 1:30 PMFUV, Provider: Charlene Rodriguez, Status: Pen, Time: 1:30 PM RB-OJYBE-Egusmb [address] Work Phone: Start: 99-96-1841RLD, Provider: Charlene Rodriguez, Status: Pen, Time: 11:15 AMFUV, Provider: Charlene Rodriguez, Status: Pen, Time: 11:15 AM IK-VLTML-Afioyh 320 Work Phone: Start: 69-82-9145VKA TESTINGPAP TESTINGTrinity Health System East Campustart: 44-88-6195Grjvfvlcj for malignant neoplasm of cervixTrinity Health System East Campustart: 96-50-8037NJiO,Tdap and Td Vaccines (1 - Tdap)DTaP,Tdap and Td Vaccines (1 - Tdap)[facility] Healt[facility]art: 63-89-2183GOfA/Tdap/Td Vaccines (1 - Tdap)DTaP/Tdap/Td Vaccines (1 - Tdap)[facility] HospitalStart: 90-04-2501Znziq microalbumin profileTrinity Health System East Campustart: 49-67-3678Wrklc BMI Follow Up Plan Adult BMI Follow Up PlanCommunity Healthtart: 59-49-0754Ybaxl BMI ScreeningAdult BMI ScreeningCommunity Healthtart: 42-95-3906IVKTKS PCP TEAM CHRONIC DISEASE VISITANNUAL PCP TEAM CHRONIC DISEASE VISITOhiohealth Grady [facility] Start: 29-43-5674BZ CONTROLLED (<130/80)BP CONTROLLED (<130/80)[facility] Start: 01-78-1947MHWGKFFTJ C SCREENINGHEPATITIS C SCREENINGOhiohealth Grady Memorial Hospital Start: 30-49-9808Mcjauotdc C screeningHepatitis C ScreeningOhiohealth Grady Memorial Hospital Start: 15-77-6954WFO SCREENINGHIV SCREENINGTrinity Health System East Campustart: 32-61-5185IOW screeningHIV ScreeningTrinity Health System East Campustart: 34-66-3483Zdngmvj of varicella vaccinationVaricella Vaccines (1 of 2 - 13+ 2-dose series)[facility]wnStart: 42-24-4410Gxdabrudul ScreeningDepression ScreeningCommunity Healthtart: 71-44-1928Tgldqqp ScreeningTobacco ScreeningCommunity Healthtart: 08-05-6191Clwhmnlct vaccinationVaricella Vaccines (1 of 2 - 2-dose childhood series)[facility] HospitalStart: 12-70-1065LBR Vaccines (1 of 1 - Standard series)MMR Vaccines (1 of 1 - Standard series)[facility] HospitalStart: 12-24-9362Txtqqmgmr vaccinationVaricella Vaccines (1 of 2 - 2-dose childhood series)[facility] Start: 86-16-0820ULUEI-19 VACCINE (#1)COVID-19 VACCINE (#1)[facility] Start: 66-25-0425YFPRBHFRR B (1 of 3 - 3-dose series)HEPATITIS B (1 of 3 - 3- dose series)[facility] Campustart: 21-79-3815Tpkunnmgr B Vaccine (1 of 3 - 3- dose series)Hepatitis B Vaccine (1 of 3 - 3-dose series)[facility] Campustart: 47-92-2272Dsysopekx B Vaccines (1 of 3 - 3-dose series)Hepatitis B Vaccines (1 of 3 - 3-dose series)[facility] HospitalStart: 21-13-0075Lblci panelLipid PanelSumma HealthBacteria identified in Urine by CultureUrine culture Microbiology Routine Missed menses Ordered: 05/01/2025[facility] HealthcareComment on above:Ordered: 05/01/2025BC W Auto Differential panel - BloodCBC and differential Lab Routine Missed menses , unspecified gestational age Ordered: 05/01/2025[facility] HealthcareComment on above:Ordered: 05/01/2025ytology Cervical or vaginal smear or scraping studyPap Smear Pathology and Cytology Routine Well woman exam with routine gynecological exam Ordered: 08/18/2024[facility] Healthcare Work Phone: comment on above:Ordered: 08/18/2024Hemoglobin A1c/Hemoglobin.total in BloodHemoglobin A1c Lab Routine Missed menses , unspecified gestational age Ordered: 05/01/2025[facility] HealthcareComment on above: Ordered: 05/01/2025Hepatitis B virus surface Ag [Presence] in Serum or Plasma by ImmunoassayHepatitis B surface antigen Lab Routine Missed menses , unspecified gestational age Ordered: 05/01/2025[facility] HealthcareComment on above: Ordered: 05/01/2025Hepatitis C virus Ab [Presence] in Serum or Plasma by ImmunoassayHepatitis C antibody Lab Routine Missed menses , unspecified gestational age Ordered: 05/01/2025[facility] HealthcareComment on above:Ordered: 05/01/2025HIV-1/HIV-2 antigen/antibody combination immunoassayHIV-1 and HIV-2 antibodies Lab Routine Missed menses , unspecified gestational age Ordered: 05/01/2025[facility] HealthcareComment on above:Ordered: 05/01/2025 End: 46-23-7258Rvu pelvis w/o & w/contrast materialMRI FEMALE PELVIS WO/W IVCON Radiology Routine Pelvic and perineal pain 1 Occurrences starting 05/17/2023 until [facility] Work Phone: Comment on above:1 Occurrences starting 05/17/2023 until 4Reagin Ab [Presence] in Serum by RPRRPR Lab Routine Missed menses , unspecified gestational age Ordered: 05/01/2025[facility] Comment on above:Ordered: 05/01/2025Rubella antibody, IgGRubella antibody, IgG Lab Routine Missed menses , unspecified gestational age Ordered: 04/2025[facility] HealthcareComment on above:Ordered: 05/01/2025 End: 59-55-1351LwsgnaResearch Psychiatric Center Work Phone: Comment on above:Once (Lab) for 1 Occurrences starting 11/30/2022 until 11/30/2022, 1 completed End: 31-83-1026OS for pregnancyUS OB follow up transabdominal approach Imaging Routine Gestational diabetes mellitus (GDM), antepartum, gestational diabetes method of control unspecified (HHS-HCC) every 4 weeks for 2 Occurrences starting 09/16/2025 until 12/17/2025[facility] Work Phone: comment on above:every 4 weeks for 2 Occurrences starting 09/16/2025 until 6C[facility] Immunizations Immunization DateImmunizationNotesCare XuuqzndqFcddrgll58-34-7701huegtqapk A vaccine, adult dosageCorey Kiesha DO Work Phone: [facility] LawnBglvlubsmg37-50-3776aovzx papilloma virus vaccine, quadrivalentCorey Kiesha DO Work Phone: [facility] LawnDozwatihry02-30-4481amwvmssii, seasonal, injectable, preservative freeCorey Kiesha DO Work Phone: [facility] LawnMaavafgacf94-28-2360phexeeuik virus vaccine, unspecified formulationGina Moschella DO Work Phone: [facility] HospitalCzibst40-20-3402dcicn papilloma virus vaccine, quadrivalentCorey Kiesha DO Work Phone: [facility] LawnEdtncecgmf18-30-0088nurruootj A vaccine, adult dosageCorey Kiesha DO Work Phone: [facility] LawnNgimadphha24-44-1422vbgry papilloma virus vaccine, quadrivalentCorey Kiesha DO Work Phone: [facility] LawnYsuwzbpqkf89-54-0527vodddsp toxoid, reduced diphtheria toxoid, and acellular pertussis vaccine, adsorbedCorey Kiesha DO Work Phone: [facility] LawnWpcntokyxd89-89-4194liqfjkvrgcvda polysaccharide (groups A, C, Y and W-135) diphtheria toxoid conjugate vaccine (MCV4P)Nathan Kiesha DO Work Phone: [facility] LawnVgugbybrcw44-70-2458paugwalblw, tetanus toxoids and acellular pertussis vaccine, unspecified formulationCorey Kiesha DO Work Phone: [facility] LawnHpojubbgek62-72-9276frizhzm, mumps and rubella virus vaccineCorey Kiesha DO Work Phone: [facility] LawnOyjffuylxm98-40-4235ncqpfinmpl vaccine, inactivatedCorey Kiesha DO Work Phone: [phone] [facility] LawnTlgqgzzlge45-99-5546tnwlmpiltm, tetanus toxoids and acellular pertussis vaccine, unspecified formulationCorey Kiesha DO Work Phone: [phone] LawnYrrjyuddnq68-17-1961YZB-Oyqtgalssvx influenzae type b conjugate vaccineCorey Kiesha DO Work Phone: [phone] [facility] LawnCfmjqlthhu96-55-8417uhkrnxxsq B vaccine, pediatric or pediatric/adolescent dosageCorey Kiesha DO Work Phone: [phone] [facility] LawnDjmrgsohxe45-91-8348uozzcpb, mumps and rubella virus vaccineCorey Kiesha DO Work Phone: [phone] [place], [place] [address]Xpryjkrnvm01-19-4985fcaxatqam poliovirus vaccine, live, oralCorey Kiesha DO Work Phone: [phone] [place], [place] [address]Febzisbdfv64-86-5067QVG-Jmkcdkwcfst influenzae type b conjugate vaccineCorey Kiesha DO Work Phone: [phone] [place], [place] [address]Affdlmknll26-48-6721yzqinwkxw B vaccine, pediatric or pediatric/adolescent dosageCorey Kiesha DO Work Phone: [phone] [place], [place] [address]Pmqippvfsz46-24-2617yrosbxauu poliovirus vaccine, live, oralCorey Kiesha DO Work Phone: [phone] [place], [place] [address]Vwvftgdnna78-51-3976BQI-Tsheaeqglwn influenzae type b conjugate vaccineCorey Kiesha DO Work Phone: [phone] [place], [place] [address]Uayfjsygeb27-75-9896vvitfbfdl B vaccine, pediatric or pediatric/adolescent dosageCorey Kiesha DO Work Phone: [phone] [place], [place] [address]Vhzlceiixw94-88-8432arwzdjhty poliovirus vaccine, live, oralCorey Kiesha DO Work Phone: [phone] [facility] HealthcareNEGATED: Highlighted row has not occurred!25-99-7582tjdnrqt, mumps and rubella virus vaccineKatcarlos Ryder DO Work Phone: [facility] HealthComment on above:Deferred: Other - Rubella ImmuneNEGATED: Highlighted row has not occurred!05-00-4658mxunfba toxoid, reduced diphtheria toxoid, and acellular pertussis vaccine, janetKathe Ryder DO Work Phone: [facility] HospitalComment on above:Deferred: No longer needed - Refused Tdap vaccine. Payers DatePayer CategoryPayerPolicy [id number] Managed Care - [facility] 1.2.840.321565.1.13.424.2.7.9.769879.[id number] [facility]ICAID [id number] [id number] 1.2.840.144902.1.13.693.2.7.9.162662.796078.49623-20-9103Clzfjkz75-20-6513 [id number] Health Insurance 1.2.840.733840.1.13.693.2.7.9.423999.1670[id number] 2019M[id number] Health [id number] 2..1.846540.3.579.2.174 [id number] 2..1.792207.3.57[id number] 2..1.124268.3.579.[id number] 2..1.962095.3.57[id number] 2..1.660604.3.57[id number] 2..1.444738.3.579.2.57[id number] 2..1.183984.3.57[id number] 2..1.833510.3.579.2.[id number] 2.840.1.219558.3.579.[id number] 2.0.1.750648.3.57[id number] 2.840.1.655857.3.57[id number] 2.0.1.608199.3.57[id number] 2..1.590320.3.579.2.304053-81-3436Lieodqi12939958 2.0.1.424197.3.579.2.039[id number] 2..1.564272.3.579.2.968397-16-5942Hkcblvy21868001 2..1.679177.3.579.2.345047-44-5470Yuogeeh48744854 2..1.705110.3.579.2.057436-69-1964Ippbwhq15800580 2..1.276904.3.579.2.6[id number] 2..1.958996.3.579.2.9[id number] 2.0.1.799537.3.579.[id number] 2..1.556412.3.579.2.5[id number] 2.0.1.048967.3.579.2.744480-83-0987Yhjzurz2592035 2.840.1.204578.3.579.2.275152-64-9777Murvxnl4740085 2..840.1.862444.3.579.2.6666[id number] 2..840.1.390952.3.579.2.144404-94-9719Btmqeou774230819 2..840.1.105828.3.579.2.4380[id number] 2.16.840.1.854392.3.579.2.0800Wqlhgnw56814981 2.840.1.657160.3.579.2.531 Social History DateTypeDetailFacilityStart: 01-06-2021 End: 88-21-5883Datktc uses seat beltAlways uses seat beltNOMS HealthcareStart: 12-10-2018 End: 99-22-5534Dqqqdzl smoking statusNever smoked tobacco (finding)[facility] Institutetart: 17-01-9560Ybbmmyr smoking statusNeverRiverview Health Institutetart: 01-06-2021 End: 78-08-3916Wni Assigned At [facility] Other ToMemorial Health System Marietta Memorial HospitalComment on above: denies.Tobacco smoking statusRiverview Health Institutetart: 12-10-2018 End: 93-85-0434Jaurfcp use and exposureSmokeless tobacco non-userTrinity Health System East Campustart: 04-11-2023 End: 42-86-6946Vptgagc intakeCurrent drinker of alcohol (finding)[facility] Campustart: 84-71-7825Oaoiexf Commentmaybe a few drinks a monthOhiohealth Grady [facility] Hospital Start: 56-11-8183Tlh Assigned At [facility] HospitalNot on [facility] Centerumoh HealthStart: 01-10-2024 End: 06-37-2647Nqfabzu intakeLifetime non-drinker (finding)[facility] HealthWithin the last year, have you [...] got money to buy more.Never trueNOMS HealthcareStart: 85-28-7671Yahnskkrj81AEFR HealthcareStart: 27-61-1432Ujdlbjm Commentcaffeine: 1-2 cups per day, coffee and popNOWY HealthcareStart: 21-28-9323Zspqpyx SDOH IPV Xyid4Hezis HealthStart: 49-75-1477Saswrzu SDOH Housing Places Twamk7Zfqcg HealthStart: 04-12-2022 [facility] HealthStart: 11-18-2022 End: 91-93-8707Mwjwsejf to SARS-CoV-2 (event)Not sureSufayette county memorial hospital HealthAre you now , , , , never or living with a partner? MarriedNOMS HealthcareDo you feel stress - tense, restless, nervous, or anxious, or unable to sleep at night because yourmind is troubled all the time - these days [OSQ]Only a littleNOWY HealthcareStart: 12-02-2018 End: 17-88-6242QdjDdgcgt (finding)[facility] Hospitaltart: 78-18-7211Nbv Assigned At [facility] Southtart: 08-19-2025 End: 36-92-2724Htdfhplvw beverage intakeCurrent non-drinker of alcohol (finding) [facility] CenterShopVisible [employer] Medical Equipment Procedure CodeEquipment CodeEquipment Original TextEquipment IdentifierDates [id number]: 08-20-2025 End: each by In Vitro route Daily Use to check FSBS four times daily [id number]: 08-20-2025 End: 82-12-9671Pkv pen needles to give insulin.[id number]: 09-04-2025 Functional Status DkyxZeeuidoxmtJdapuvWceejdpa57-23-0428Hxbyt score [AUDIT-C]0 09/10/2025 10:17 AM EDT AshleyDanae Martinez [facility]09-04-2025Patient Health Questionnaire 2 item (PHQ-2) [Reported][facility] LawnIvrvbrhkbz89-95-3604Hnzcz score [AUDIT-C]1 12/29/2024 10:25 PM EST Mychart, GenericNOMS Xwsbvaalko78-15-2975Uxy often do you have a drink containing alcohol?Monthly or less 12/29/2024 10:25 PM EST Mychart, Generic Monthly or lessNOMS Ezbcytusbr85-95-7282Nkmavdzpae status Patient does not drink 12/29/2024 10:25 PM EST Mychart, Generic Patient does not drinkNOPemiscot Memorial Health SystemsIhspzrqghx75-23-2973Anu often do you have 6 or more drinks on 1 occasion?Never 12/29/2024 10:25 PM EST Mychart, Generic NeverNOMS [facility] 24-49-7105Uswhpnj Health Questionnaire 2 item (PHQ-2) [Reported][facility] 27-04-4549Rqtqxhwjrn StatusN/[facility]03-08-2023Functional StatusN/[facility]02-04-2023Functional StatusN/[facility]01-02-2023Functional StatusN/[facility] 07-14-2022N/[facility] Clinical Notes 04-18-2022 to 10-06-2025 Note Date & OjzcWhbmJnmcashn82-16-1228 History of Present illness Narrative* Chivo Springer PA-C - 10/06/2025 2:30 PM EST Maternal- Medicine Consultation VIDEO Patient is present at work, provider present at [facility] HISTORY OF PRESENT ILLNESS: Juhi Naidu Valetiana [...] values to us weekly by e-mail to: [email or web address] or by fax to: [phone] Chivo Springer PA-C Maternal- Medicine Office phone: [phone] Chivo Springer PA-C 10/06/25 1606 documented in this encounterUniversity Hospitals Lake [facility] Center11-10-2025 Miscellaneous Notes* Telephone Encounter - Anjana Davalos RN - 10/05/2025 2:39 PM EST Left message for patient to send in blood sugar logs prior to video visit toady in [facility] at 3 PM. Also, Instructed patient to contact [facility] if unable to keep appointment today at [facility], then to call at [phone] option 1 to reschedule. documented in this encounterUniversity Hospitals Lake West Medical Center11-10-2025 Telephone encounter Note* Telephone Encounter - Anjana Davalos RN - 10/05/2025 2:39 PM EST Left message for patient to send in blood sugar logs prior to video visit toady in [facility] at 3 PM. Also, Instructed patient to contact [facility] if unable to keep appointment today at [facility], then to call at [phone] option 1 to reschedule. [facility]11-05-2025 History of Present illness Narrative* [...] to check FSBS. Blood Glucose Monitoring Suppl ([employer] Glucometer) w/Device kit 1 kit, Does not [...] John San infection GDM (gestational diabetes mellitus) ([facility]) Headache History of menstrual cramps ([facility]) Varicella zoster Visual impairment HISTORY PAST MEDICAL HISTORY SOCIAL HISTORY Past Medical History: Diagnosis Date Amenorrhea d/t oral contraceptive pills Endometriosis John San infection GDM (gestational diabetes mellitus) ([facility]) Headache History of menstrual cramps severe Hypertension ([facility]) x1 Varicella zoster unsure Visual impairment [...] History: Procedure Laterality Date APPENDECTOMY 05/2016 at [facility] DILATION [facility] CURETTAGE 12/2022 [...] nursing note reviewed. Exam conducted with a tour operator present. Vitals: Estimated body mass index is 30.36 kg/m as calculated from the following: Height as of 07/30/25: 5' 2 . Weight as of this encounter: 166 lb. BP: 140/82 Patient's last menstrual period was 02/21/2025. Assessment/Plan ICD-10-CM 1. Third trimester ([facility]) Z34.93 POCT urinalysis dipstick manually resulted 2. 31 weeks gestation of ([facility]) Z3A.31 3. Pre-eclampsia in third trimester ([facility]) O14.93 Return OB: Patient presents today for [...] of: Nathan Pop DO documented in this encounterCox Walnut LawnNzkgnktpuo22-90-9104 Miscellaneous Notes* Telephone Encounter - Cha Harris [...] this week. documented in this encounterUniversity Hospitals Lake West Medical Center11-03-2025 Telephone encounter Note* Telephone Encounter [...] insulin change for this week. [facility]10-27-2025 Miscellaneous Notes* Telephone Encounter - [...] sugar logs weekly. documented in this [facility]10-27-2025 Telephone encounter Note* Telephone Encounter - [...] to send in blood sugar logs weekly. [facility] [employer] Stehbz34-98-0201 History of Present illness Narrative* Chivo Springer PA-C - 09/21/2025 12:28 PM EDT Insulin dose increased due to elevated fastings. Chivo Springer PA-C 09/21/25 1229 documented in this encounterUniversity Hospitals Lake West Medical Center10-22-2025 Miscellaneous Notes* Telephone Encounter - [...] next week. documented in this encounterUniversity Hospitals Lake West Medical Center10-22-2025 Telephone encounter Note* Telephone Encounter [...] new blood sugars next week. [facility]10-22-2025 History of Present illness Narrative* [...] Diagnosis Date Amenorrhea d/t oral contraceptive pills Jhon San infection GDM (gestational diabetes mellitus) ([facility]) Headache History of menstrual cramps ([facility]) Varicella zoster Visual impairment HISTORY PAST MEDICAL HISTORY SOCIAL HISTORY Past Medical History: Diagnosis Date Amenorrhea d/t oral contraceptive pills Endometriosis John San infection GDM (gestational diabetes mellitus) ([facility]) Headache History of menstrual cramps severe Hypertension ([facility]) x1 Varicella zoster unsure Visual [...] History: Procedure Laterality Date APPENDECTOMY 05/2016 at [facility] DIL[facility] CURETTAGE 12/2022 [...] nursing note reviewed. Exam conducted with a tour operator present. Vitals: Estimated body mass index is 29.78 kg/m as calculated from the following: Height as of 25: 5' 2 . Weight as of this encounter: 162 lb 12.8 oz. BP: 120/80 Patient's last menstrual period was 02/21/2025. Assessment/Plan ICD-10-CM 1. 29 weeks gestation of ([facility]) Z3A.29 POCT urinalysis dipstick manually resulted 2. Third trimester ([facility]) Z34.93 POCT urinalysis dipstick manually resulted 3. Hypertension affecting , antepartum ([facility]) O16.9 4. Gestational diabetes mellitus (GDM), antepartum, gestational diabetes method of control unspecified ([facility]) O24.419 Return OB: Patient presents today for [...] and continues to report glucose log to [facility]. Follow up Ultrasound in 4 weeks. Orders Placed This Encounter Procedures POCT urinalysis dipstick manually resulted Follow Up: Patient is to return to office in 2 week for routine OB appointment. Documented by Steph Keane NP on behalf of: Nathan Pop DO documented in this encounterCox Walnut LawnMfxdmmmimm43-24-0887 History of Present illness Narrative* Madhuri Monroy MD - 09/10/2025 11:00 AM EDT Video Visit via Real-time Synchronous Audiovisual Provider Location: [facility]- MEDICINE [address] [place] [address], [address] [place] [address] Patient Location: Other [place] [facility] office Patient Location Lawn Specialist: None Video Visit Consent Statement: I [...] that there are some limitations compared to vbyy-vj-cjti evaluations. We elected to proceed. REASON FOR [...] and the other consultants, we search on [employer] and all the available care everywhere epic I did review all the imaging studies of the patient available on EMR, ordered by the primary care physician and the other engagement quality consultant HABITS: Patient activity no restrictions, diet [...] patient is in complete care of her cctv technician. Patient does have ultrasound video visit [...] today? none documented in this encounterUniversity Hospitals Lake West Medical Center10-10-2025 History of Present illness Narrative* [...] Yes Have you been seen here at [facility] in a previous ? No Recent ER visits or hospitalizations? 09/03/25 [place] to r/o preeclampsia. Patient states labs WNL Bring blood sugar log or meter with you today? (Please bring them with you for every visit at [facility]) Yes Flu vaccine (Sep-January)? N/A Any [...] and the other consultants, we search on [employer] and all the available care everywhere epic I did review all the imaging studies of the patient available on EMR, ordered by the primary care physician and the other engagement quality consultant HABITS: Patient activity no restrictions, diet [...] checking blood glucose and remote evaluation through [facility] office until delivery. 5. Discontinue blood [...] patient is in complete care of her cctv technician. Patient does have ultrasound video visit [...] with questions or concerns. documented in this encounterMemorial Health SystemOxxy Emelpv03-05-0762 History of Present illness Narrative* Steph Keane [...] meal for a total of 4times daily. mbsjkwwfpi-wyoclez-vpikxhzh (Fiorinal) 50-325-40 MG capsule 1 capsule, Oral, [...] San infection Headache History of menstrual cramps ([facility]) Varicella zoster Visual impairment HISTORY PAST MEDICAL HISTORY SOCIAL HISTORY Past Medical History: Diagnosis Date Amenorrhea d/t oral contraceptive pills Endometriosis John San infection Headache History of menstrual cramps severe Hypertension ([facility]) x1 Varicella zoster unsure Visual [...] History: Procedure Laterality Date APPENDECTOMY 05/2016 at [facility] DILATION AND CURETTAGE 12/2022 [...] nursing note reviewed. Exam conducted with a tour operator present. Vitals: Estimated body mass index is 29.41 kg/m as calculated from the following: Height as of 25: 5' 2 . Weight as of this encounter: 160 lb 12.8 oz. BP: 170/90 Patient's last menstrual period was 02/21/2025. ASSESSMENT & PLAN ICD-10-CM 1. 27 weeks gestation of ([facility]) Z3A.27 POCT urinalysis dipstick manually resulted 2. Second trimester ([facility]) Z34.92 Documented by Steph Keane NP on behalf of: Steph Keane NP documented in this encounterCox Walnut LawnXyhxvufhhj49-99-1883 Miscellaneous Notes* Telephone Encounter - Cha Harris [...] that appt. documented in this encounterUniversity Hospitals Lake West Medical Center10-07-2025 Telephone encounter Note* Telephone Encounter [...] asked to be transferred to the [facility] to make that appt. [facility] [employer] Opkwxp82-75-4329 History of Present illness Narrative* Steph Keane [...] to check FSBS. Blood Glucose Monitoring Suppl ([employer]-Urgent [employer] Glucometer) w/Device kit 1 kit, Does not [...] San infection Headache History of menstrual cramps ([facility]) Varicella zoster Visual impairment HISTORY PAST [...] History: Procedure Laterality Date APPENDECTOMY 05/2016 at [facility] DILATION AND CURETTAGE 12/2022 [...] nursing note reviewed. Exam conducted with a tour operator present. Vitals: Estimated body mass index is 29.23 kg/m as calculated from the following: Height as of 07/30/25: 5' 2 . Weight as of this encounter: 159 lb 12.8 oz. BP: (!) 158/92 Patient's last menstrual period was 02/21/2025. ASSESSMENT & PLAN ICD-10-CM 1. 26 weeks gestation of ([facility]) Z3A.26 POCT urinalysis dipstick manually resulted 2. Second trimester ([facility]) Z34.92 Return OB: Patient presents today for [...] and have her evaluated today at [facility] OB. I discussed with OB today and they are aware that patient is coming to be ev aluated. Orders Placed This Encounter Procedures POCT urinalysis dipstick manually resulted Follow Up: Patient is to return to office in 2 week for routine OB appointment. Documented by Steph Keane NP on behalf of: Steph Keane NP documented in this encounterCox Walnut LawnRlftughblh24-11-7183 Group counseling note* Group Note - Kerline [...] Face to face time was 80 minutes. [employer] Work Phone: [phone]) 937-328109-29-2025 Miscellaneous Notes* Group Note - Kerline Augustin [...] time was 80 minutes. documented in this encounterMemorial Health SystemIntoOutdoors [facility] HospitalZbttgr12-46-9128 History of Present illness Narrative* Steph Keane [...] San infection Headache History of menstrual cramps ([facility]) Varicella zoster Visual impairment HISTORY PAST [...] History: Procedure Laterality Date APPENDECTOMY 05/2016 at [facility] DILATION AND CURETTAGE 12/2022 [...] nursing note reviewed. Exam conducted with a tour operator present. Vitals: Estimated body mass index is 27.82 kg/m as calculated from the following: Height as of 07/30/25: 5' 2 . Weight as of this encounter: 152 lb 1.9 oz. BP: 138/82 Patient's last menstrual period was 02/21/2025. ASSESSMENT & PLAN ICD-10-CM 1. 24 weeks gestation of ([facility]) Z3A.24 POCT urinalysis dipstick manually resulted 2. Second trimester ([facility]) Z34.92 POCT urinalysis dipstick manually [...] on Labetalol 100mg BID. Will refer to [facility] for evaluation. Patient deniesany Headache or blurred vision. Documented by Steph Keane NP on behalf of: Nathan Pop DO documented in this encounterCox Walnut LawnBfplxgcedp04-20-6298 History of Present illness Narrative* Eliceo Beltran [...] infection Headache History of menstrual cramps Hypertension ([facility]) Varicella zoster Visual impairment Objective ?Quick [...] Orders: Lipid panel; Future documented in this encounterCox Walnut LawnHtshszywar84-15-4185 History of Present illness Narrative* Christine Ravi [...] History: Procedure Laterality Date APPENDECTOMY 05/2016 at [facility] DIL[facility] AND CURETTAGE 12/2022 [...] nursing note reviewed. Exam conducted with a tour operator present. Vitals: Estimated body mass index is 26.48 kg/m as calculated from the following: Height as of 12/30/24: 5' 2 . Weight as of this encounter: 144 lb 12.8 oz. BP: 120/80 Patient's last menstrual period was 02/21/2025. ASSESSMENT & PLAN ICD-10-CM 1. 20 weeks gestation of ([facility]) Z3A.20 POCT urinalysis dipstick manually resulted 2. Second trimester ([facility]) Z34.92 POCT urinalysis dipstick manually resulted 3. [...] of: Nathan Pop DO documented in this encounterCox Walnut LawnGtmerkhigo80-58-3058 History of Present illness Narrative* Steph Keane [...] San infection Headache History of menstrual cramps ([facility]) Varicella zoster Visual impairment HISTORY PAST [...] History: Procedure Laterality Date APPENDECTOMY 05/2016 at [facility] DILATION AND CURETTAGE 12/2022 [...] nursing note reviewed. Exam conducted with a tour operator present. Vitals: Estimated body mass index is 26.73 kg/m as calculated from the following: Height as of 12/30/24: 5' 2 . Weight as of this encounter: 146 lb 1.9 oz. BP: 118/74 Patient's last menstrual period was 02/21/2025. ASSESSMENT & PLAN (Z34.92) Second trimester ([facility]) Plan: POCT urinalysis dipstick manually resulted, Alpha fetoprotein, maternal, Alpha fetoprotein, maternal (Z3A.17) 17 weeks gestation of ([facility]) Plan: POCT urinalysis dipstick manually resulted, Alpha fetoprotein, maternal, Alpha fetoprotein, maternal (Z36.89) Screening, , for anatomic survey ([facility]) Plan: US OB 14+ weeks anatomy scan [...] of: Nathan Pop DO documented in this encounterCox Walnut LawnSxhlzlbbwh48-43-9082 History of Present illness Narrative* Steph Keane [...] San infection Headache History of menstrual cramps ([facility]) Varicella zoster Visual impairment HISTORY PAST [...] History: Procedure Laterality Date APPENDECTOMY 05/2016 at [facility] DILATION AND CURETTAGE 12/2022 [...] nursing note reviewed. Exam conducted with a tour operator present. Vitals: Estimated body mass index is 25.24 kg/m as calculated from the following: Height as of 12/30/24: 5' 2 . Weight as of this encounter: 138 lb. BP: 122/80 Patient's last menstrual period was 02/21/2025. ASSESSMENT & PLAN ICD-10-CM 1. Second trimester ([facility]) Z34.92 POCT urinalysis dipstick manually resulted 2. 13 weeks gestation of ([facility]) Z3A.13 Return OB: Patient presents today for [...] of: Nathan Pop DO documented in this encounterCox Walnut LawnCjncltgzip76-28-2343 History of Present illness Narrative* Hina Go [...] 03/29/2023 Endometriosis 03/29/2023 Gastroparesis 03/29/2023 Hypertension ([facility]) 03/29/2023 Intractable migraine without aura and with status migrainosus ([facility]) 03/29/2023 Migraines ([facility]) 03/29/2023 Chronic pelvic pain in female 03/29/2023 Pain in female genitalia on intercourse 03/29/2023 Pain on swallowing 03/29/2023 Panic disorder ([facility]) 03/29/2023 Patellofemoral disorders, left knee 03/29/2023 Patellofemoral disorders, right knee 03/29/2023 Posterior calcaneal exostosis 03/29/2023 Scapular dyskinesis 03/29/2023 Scoliosis 03/29/2023 Seasonal allergic rhinitis due to pollen 03/29/2023 Tachycardia, paroxysmal ([facility]) 03/29/2023 Tension headache 03/29/2023 Vitamin B12 [...] History: Procedure Laterality Date APPENDECTOMY 05/2016 at [facility] DIL[facility] CURETTAGE 12/2022 [...] by: Hina Go LPN documented in this encounterCox Walnut LawnHelbpmjjrp28-13-2961 History of Present illness Narrative* aCndis Yanes, 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 - 01/19/2025 2:50 PM EST Reason for Appointment: Patient ID: Juhi Gama is a 29 y.o. female who presents for Painful [place] Patient presents today for Consult appointment. MEDICATIONS Current Outpatient Medications Medication Instructions tsefizaujn-tsoqqfhnhbqwx-ofnqbedc 50-325-40 MG tablet 1 tablet, Oral, Every [...] 03/29/2023 Endometriosis 03/29/2023 Gastroparesis 03/29/2023 Hypertension ([facility]) 03/29/2023 Intractable migraine without aura and with status migrainosus ([facility]) 03/29/2023 Migraines ([facility]) 03/29/2023 Chronic pelvic pain in female 03/29/2023 Pain in female genitalia on intercourse 03/29/2023 Pain on swallowing 03/29/2023 Panic disorder ([facility]) 03/29/2023 Patellofemoral disorders, left knee [...] History: Procedure Laterality Date APPENDECTOMY 05/2016 at [facility] 12/2022 [...] nursing note reviewed. Exam conducted with a tour operator present. Vitals: Estimated body mass index [...] patient and patient given direct extension to Elementary Supervisor for any questions/concerns pertaining to fertility. Documented by Candis Yanes LPN on behalf of: Nathan Pop DO documented in this encounterCox Walnut [id number] History of Present illness Narrative* Eliceo Beltran [...] History: Procedure Laterality Date APPENDECTOMY 05/2016 at [facility] 12/2022 [...] min Stress: No Stress Concern Present (12/29/2024) [employer] [place] [employer] - Occupational Stress Questionnaire Feeling of Stress : Only a little Social Connections: Unknown (12/29/2024) Social Connection and Isolation Panel [NHANES] Frequency of Communication with Friends and Family: More than three times a week Frequency of Social Gatherings with Friends and Family: Once a week Attends [employer] Services: Patient declined Active Member of Clubs [...] with the patient today. Current Outpatient Medications: bjnxwjpjwq-ixescknhngjet-wmoeufjg 50-325-40 MG tablet, Take 1 tablet by mouth every 6 (six) hours if needed for headaches, Disp: 20 tablet, Rfl: 0 desogestrel-ethinyl estradiol (Apri) 0.15-30 MG-MCG tablet, Take 1 tablet by mouth Daily, Disp: 21 tablet, Rfl: 12 metoprolol succinate XL (Toprol-XL) 25 MG 24 hr tablet, Take 1 tablet by mouth daily, Disp: 90 tablet, Rfl: 1 documented in this encounterCox Walnut [id number] History of Present illness Narrative* Virgen Steen LPN - 08/18/2024 11:00 AM EDT Reason for Appointment: Patient ID: Juhi Cope is a 29 y.o. female who presents for Well Women Visit Patient presents today for Annual Exam. MEDICATIONS Current Outpatient Medications Medication Instructions idfmnpejpa-gyqusitcfeoux-igcwsnbh 50-325-40 MG tablet 1 tablet, Oral, Every [...] 03/29/2023 Pain on swallowing 03/29/2023 Panic disorder ([facility]/HCC) 03/29/2023 Patellofemoral disorders, left knee [...] Headache History of menstrual cramps severe Hypertension (CMS/[facility]) x1 Varicella zoster unsure Visual [...] History: Procedure Laterality Date APPENDECTOMY 05/2016 at [facility] 12/2022 [...] nursing note reviewed. Exam conducted with a tour operator present. Vitals: Estimated body mass index [...] of: Zenobia Gutierrez PA-C documented in this encounterCox Walnut [id number] History of Present illness Narrative* Christine Ravi LPN - 07/22/2024 9:50 AM EDT Reason for Appointment: Patient ID: Juhi Cope is a 29 y.o. female who presents for Dysmenorrhea Patient presents today for Acute Visit. MEDICATIONS Current Outpatient Medications Medication Instructions ogpnmbalcs-mhlbkkucqwufd-cmifzfqi 50-325-40 MG tablet 1 tablet, Oral, Every [...] History: Procedure Laterality Date APPENDECTOMY 05/2016 at [facility] 12/2022 [...] nursing note reviewed. Exam conducted with a tour operator present. Vitals: Estimated body mass index [...] of: Nathan Pop DO documented in this encounterCox Walnut [id number] Telephone encounter Note* Telephone Encounter - Candis Garces - 04/29/2024 8:23 AM EDT Received message from admin Anna Webb to cancel surgery and all appts as pt had services elsewhere [facility]06-04-2024 Miscellaneous Notes* Telephone Encounter - Candis Garces - 04/29/2024 8:23 AM EDT Received message from admin Anna Webb to cancel surgery and all appts as pt had services elsewhere documented in this encounterOhiohealth [facility]05-[facility]24 Telephone encounter Note * Telephone Encounter - Anna De Leon - 04/25/2024 1:10 PM EDT 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 Please cancel surgery and all pre and post op appts. 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 Please cancel surgery and all pre and post op appts. documented in this encounterOhiohealth [facility]02-[facility] History of Present illness Narrative* Nathan [...] History: Procedure Laterality Date APPENDECTOMY 05/2016 at [facility] 12/2022 [...] nursing note reviewed. Exam conducted with a tour operator present. Vitals: Estimated body mass index [...] of: Nathan Kiesha, DO documented in this encounterCox Walnut [id number] Miscellaneous Notes* Telephone Encounter - Pippa Simon [...] mg tablet Class: Normal Route: ORAL Order: [id number] E-Prescribing Status: Receipt confirmed by pharmacy (05/17/2023 [...] that may recur and often requires a detention treatment plan. Once endometriosis is identified, there [...] Center 05/20/2024 10:00 AM [facility] 10:30 AM Charlene Rodriguez DO [facility] Appointment scheduled: As listed above Action taken: Refill request routed to clinician Pippa Simon RN January 03, 2024 4:29 PM * Telephone Encounter - Alena Tracy - 01/02/2024 3:52 PM EST Patient: Juhi Cope : 1995 Provider: Charlene Rodriguez DO Caller Phone #: [phone] (home) [phone] (cell) Reason for call: b/c refill Message routed to nurse triage Date of next visit: MEGAN: 12/10/2023 documented in this encounterOhiohealth [facility]ady [facility]01-15-2024 NoteHNO ID: [id number] Author: CHARLENE RODRIGUEZ DO Service: ? Author Type: Physician Type: Progress Notes Filed: 12/10/2023 15:14 Note Text: [facility] [place] SECTION FOR MINIMALLY INVASIVE GYNECOLOGIC SURGERY OUTPATIENT VISIT DATE 12/10/2023 OUTPATIENT VISIT TYPE Follow-up visit PRIMARY CARE PHYSICIAN: Denny Rodríguez [address] [place] [address] REFERRING PHYSICIAN: Self CHIEF COMPLAINT: No chief [...] MRI: no evidence of Past Gynecologic History: Etcher Hand History LMP: 07/08/2023 (Exact Date), Having periods Age at Menarche: 14 Age at First : 27 Age at Menopause: Etcher Hand History Comments: Sexual Activity: Never; No partner [...] presents today with pelvic (more content not included)...[facility]10-18-2023 Hospital Discharge instructions Patient Education 09/12/2023 [...] Follow these instructions at home: Medicines Take fxpz-mpd-ofqqpkq and prescription medicines only as told by [...] buy a blood pressure monitor at most [employer] or online. Where to find more information [place] [employer]: www.heart.org Contact a health care [...] provider. Document Revised: 07/27/2022 Document Reviewed: 07/27/2022 Fluent Home Patient Education 2022 [employer]QUA P[employer]. 09/12/2023 18:18:13 Hypertension, Adult, Dmdv-ly-Zian Hypertension, Adult Hypertension is another name for [...] doctor. Keep all follow-up visits. Medicines Take yiwz-aar-eyxjynt and prescription medicines only as told by [...] provider. Document Revised: 08/31/2022 Document Reviewed: 08/31/2022 Fluent Home Patient Education 2022 AQUA PURE. 09/12/2023 18:18:13 General Headache Without Cause, Xqjc-jd-Jtwy General Headache Without Cause A headache is pain or discomfort you feel around the head or neck area. There are many causes and types of headaches. In some cases, the cause may not be found. Follow these instructions at home: Watch your condition for any changes. Let your doctor know about them. Take these steps to help with your condition: Managing pain Take hbku-aqd-vazjsxv and prescription medicines only as told by [...] provider. Document Revised: 04/12/2022 Document Reviewed: 04/12/2022 Fluent Home Patient Education 2022 [employer]QUA PURE. Follow Up Care 09/12/2023 17:21:57 With:DENNY RODRÍGUEZ Address: [address] [place] [address] Business (1) When:09/15/2023 18:03:37 Comments:Follow-up with your primary care provider in 3 to 5 days. If symptoms worsen, do not improve, or new symptoms arise please report back to emergency department for further evaluation. [facility]10-18-2023 Evaluation + Plan noteExtracted from: Title:ED [...] date 09/12/23 18:02:00 EDT, 09/12/23 18:02:00 EDT [facility]10-16-2023 Instructions* Patient Instructions* Jihan Downs APRN.CNP - 09/10/2023 9:52 AM EDT Plan: Trial baclofen suppositories - can switch to pill vaginally if suppositories are not affordable Consider Pelvic floor physical therapy - can find local provider [email or web address] Consider going back to see Dr Kuldip Downs APRN.CNP documented in this encounterOhiohealth Grady [facility]10-05-2023 NoteHNO ID: [id number] Author: Charlene Rodriguez DO Service: ? Author Type: Physician Type: Progress Notes Filed: 08/30/2023 11:15 AM Note Text: Tramadol rx sent to pharmacy.[facility]10-05-2023 History of Present illness Narrative* Charlene Rodriguez DO - 08/30/2023 11:13 AM EDT Tramadol rx sent to pharmacy. documented in this encounterOhiohealth Grady [facility]10-05-2023 Miscellaneous Notes* Telephone Encounter - Chelsie Dueñas RN - 08/30/2023 10:50 AM EDT Last office visit: 08/24/2023 Assessment and Plan No diagnosis found. Trial baclofen suppositories Will send list of PTs Consider going back to Kuldip SIGNATURE: Jihan Downs APRN.CLOUD OPERATIONS ENGINEER Office visit with Dr. Rodriguez 07/16/2023 [...] Charlene Rodriguez DO documented in this encounterOhiohealth Grady [facility]09-29-2023 NoteHNO ID: [id number] Author: Jihan Downs APRN.ANA LAURA Service: ? Author Type: Nurse Practitioner Type: Progress Notes Filed: 09/10/2023 9:53 AM Note Text: [facility] [place] Department of Benign Gynecology [facility] PATIENT NAME: Juhi Cope DATE: 08/24/2023 Patient Name and verified: Yes Patient Location: [place] This Virtual Visit was completed using My Chart Zoom platform. I have communicated my name and active licensure. The patient's identity and physical location were verified at the time of this visit. Either the patient or their legal insurance healthcare representative has been informed of the risks [...] appointment yet. GI - constipation is improved Mcmullen - hasn't tried due to pain and [...] physical therapy - or can go locally [facility] Trial flexeril at bedtime Can consider Baclofen suppositories Continue Norethindrone - can take up to 3 months for it to stop periods, take at same time every day Relaxation techniques Jihan Downs APRN.CLOUD OPERATIONS ENGINEER OB History T0 L1 SAB0 IAB0 Ectopic0 Multiple0 Live Births0 Etcher Hand History LMP: 07/08/2023 (Exact Date), Having periods Age at Menarche: 14 Age at First : 27 Age at Menopause: Etcher Hand History Comments: Sexual Activity: Never; No partner [...] HEENT nor (more content not included)...[facility]09-29-2023 History of Present illness Narrative* Jihan Downs APRN.CLOUD OPERATIONS ENGINEER - 08/24/2023 9:24 AM EDT Images from the original note were not included. [facility] [place] Department of Benign Gynecology [facility] PATIENT NAME: Juhi Cope DATE: 08/24/2023 Patient Name and verified: Yes Patient Location: [place] This Virtual Visit was completed using My Chart Zoom platform. I have communicated my name and active licensure. The patient's identity and physical location wereverified at the time of this visit. Either the patient or their legal insurance healthcare representative has been informed of the risks [...] appointment yet. GI - constipation is improved Mcmullen - hasn't tried due to pain and [...] physical therapy - or can go locally [facility]abC[facility] Trial flexeril at bedtime Can consider Baclofen suppositories Continue Norethindrone - can take up to 3 months for it to stop periods, take at same time every day Relaxation techniques Jihan Downs APRN.CLOUD OPERATIONS ENGINEER OB History T0 L1 SAB0 IAB0 Ectopic0 Multiple0 Live Births0 Etcher Hand History LMP: 07/08/2023 (Exact Date), Having periods Age at Menarche: 14 Age at First : 27 Age at Menopause: Etcher Hand History Comments: Sexual Activity: Never; No partner [...] to see Dr Rodriguez SIGNATURE: Jihan Downs, JAMI.CLOUD OPERATIONS ENGINEER Medical Decision Making: Problems: Low: Stable chronic illness Risk: Moderate: Drug management Medical Decision Making Level: 3 - Low documented in this encounterOhiohealth Grady [facility] Hospital09-22-2023 Miscellaneous Notes* Telephone Encounter - [...] Provider: Charlene Rodriguez DO Caller Phone #: [phone] (home) [phone] (cell) Reason for call: pt calling regarding mc message., still in pain. Please call [phone] Message routed to nurse triage Date of next visit: documented in this encounterOhiohealth Grady Memorial Hospital09-07-2023 Miscellaneous Notes* Telephone Encounter - Candis Suárez RN - 08/02/2023 11:29 AM EDT PA for orilissa completed via Cover [employer]oom[employer]. Juhi Cope (Morales: [id number]) - [id number] Orilissa 150MG tablets Status: Sent To Plan [...] Please advise. Thanks. documented in this encounterOhiohealth Grady [facility] Hospital08-21-2023 NoteHNO ID: [id number] Author: Charlene Rodriguez DO Service: ? Author Type: Physician Type: Progress Notes Filed: 07/16/2023 12:41 PM Note Text: [facility] [place] SECTION FOR MINIMALLY INVASIVE GYNECOLOGIC SURGERY OUTPATIENT VISIT DATE 07/16/2023 OUTPATIENT VISIT TYPE Follow-up visit PRIMARY CARE PHYSICIAN: Denny Rodríguez [address] [place] [address] REFERRING PHYSICIAN: Denny Rodríguez CHIEF COMPLAINT: No [...] additional bowel lesions identified Past Gynecologic History: Etcher Hand History LMP: 07/08/2023 (Exact Date), Having periods Age at Menarche: 14 Age at First : 27 Age at Menopause: Etcher Hand History Comments: Sexual Activity: Never; No partner [...] 1115 BP: (more content not included)...[facility]07-18-2023 History of Present illness Narrative* Boo [...] 2023 4:32 PM documented in this encounterOhiohealth Grady [facility] Hospital07-18-2023 NoteHNO ID: [id number] Author: Rosio Malcolm RT(R) Service: ? Author Type: Biomass Plant Manager Type: Progress Notes Filed: 06/12/2023 4:32 [...] BY: RT Claudia(Bryant) June 12, 2023 4:32 PMCDay[facility]07-18-2023 NoteHNO ID: [id number] Author: Boo Singh RN Service: Nursing Author [...] Cope DATE: June 12, 2023 TIME: 1:43 [facility]06-22-2023 NoteHNO ID: [id number] Author: Charlene Rodriguez, DO Service: ? Author Type: Physician Type: Progress Notes Filed: 05/21/2023 10:15 AM Note Text: [facility] [place] SECTION FOR MINIMALLY INVASIVE GYNECOLOGIC SURGERY OUTPATIENT [...] to appointment last week Past Gynecologic History: Etcher Hand History LMP: 04/22/2023 (Exact Date), Having periods Age at Menarche: 14 Age at First : 27 Age at Menopause: Etcher Hand History Comments: Sexual Activity: Never; No partner [...] Charlene Rodriguez DO Tt: 20 minutesMercy Health [facility]06-22-2023 History of Present illness Narrative* Charlene Rodriguez DO - 05/17/2023 1:05 PM EDT Images from the original note were not included. [facility] [place] SECTION FOR MINIMALLY INVASIVE GYNECOLOGIC SURGERY OUTPATIENT [...] to appointment last week Past Gynecologic History: Etcher Hand History LMP: 04/22/2023 (Exact Date), Having periods Age at Menarche: 14 Age at First : 27 Age at Menopause: Etcher Hand History Comments: Sexual Activity: Never; No partner [...] Tt: 20 minutes documented in this encounterOhiohealth Grady Memorial Hospital06-16-2023 Miscellaneous Notes* Telephone Encounter - Candis Suárez RN - 05/11/2023 4:19 PM EDT Reports vaginal bleeding, using panty liners, changing a few times a day, not severe. Biggest complaint is cramping. Has had 3 periods of bleeding recently - 04/22/2023 LMP, last a few days, 05/04-05/10 bleeding again 05/11/2023 started again today. Takes aygestin 5mg daily. She did not picker feeder flexeril. Encourage to picker feeder the flexeril as this will help with the cramping. Reviewed red flag bleeding symptoms that require trip to ER (soaking greater than one overnight padper hour, chest pain, shortness of breath, fatigue, palpitations).. Advised keep appt. Gives verbal understanding. Appointments for Next 60 Days Date Time Provider Location Dept Phone 05/17/2023 1:00 PM CHARLENE RODRIGUEZ [facility] [phone] Candis Suárez RN * Telephone Encounter - Tawana Nair [facility] - 05/11/2023 1:19 PM EDT Reason for call: other - Vaginal bleeding Provider name: Dr Rodriguez Additional comments: patient having more vaginal bleeding and concerned she is getting worse. Recommendation: routed to nurse triage pool documented in this encounterOhiohealth Grady [facility]06-06-2023 Instructions* Patient Instructions* Jihan Downs APRN.ANA LAURA - 05/01/2023 11:47 AM EDT Plan Pelvic floor physical therapy - or can go locally [facility] Trial flexeril at bedtime Can consider Baclofen [...] pain society ([email or web address].org) documented in this encounterOhiohealth Grady [facility] Hospital06-06-2023 History of Present illness Narrative* Jihan Downs APRN.ANA LAURA - 05/01/2023 10:30 AM EDT Juhi Cope is a 28 year old female who presents for problem visit for pain HPI: Pain is week before period and week of period. Worse on her period for every day she's bleeding Urinary - No symptoms GI - Always constipated. No meds Mcmullen - painful always Pain is on left [...] L0 SAB0 IAB0 Ectopic0 Multiple0 Live Births0 Etcher Hand History LMP: 03/26/2023 (Approximate), Having periods Age at Menarche: Age at First : Age at Menopause: Etcher Hand History Comments: Sexual Activity: Never; No partner [...] physical therapy - or can go locally [employer] Trial flexeril at bedtime Can consider Baclofen [...] 4 - Moderate documented in this encounterOhiohealth Grady [facility] Hospital06-06-2023 NoteHNO ID: [id number] Author: Jihan Downs APRN.CNP Service: ? Author Type: Nurse Practitioner Type: Progress Notes Filed: 05/09/2023 11:46 AM Note Text: Juhi Cope is a 28 year old female who presents for problem visit for pain HPI: Pain is week before period and week of period. Worse on her period for every day she's bleeding Urinary - No symptoms GI - Always constipated. No meds Mcmullen - painful always Pain is on left [...] L0 SAB0 IAB0 Ectopic0 Multiple0 Live Births0 Etcher Hand History LMP: 03/26/2023 (Approximate), Having periods Age at Menarche: Age at First : Age at Menopause: Etcher Hand History Comments: Sexual Activity: Never; No partner [...] physical therapy - or can go locally [employer] Trial flexeril at bedtime Can consider Baclofen [...] Decision Making Level: 4 - ModerateMer[facility]05-31-2023 Miscellaneous Notes* Telephone Encounter - Marilee [...] Lucila Foss RN documented in this encounterOhiohealth Grady [facility] Hospital03-08-2023 Hospital Discharge instructions Patient Education [...] told by your health care provider. Take roul-cyw-rzikaai and prescription medicines only as told by [...] 01/03/2007 Document Revised: 10/25/2018 Document Reviewed: 01/25/2018 Fluent Home Patient Education 2020 [employer]A P[employer]. Follow Up Care 01/31/2023 13:43:01 With:Denny Meza Address:Unknown When:02/03/2023 18:59:31 Comments:Follow-up for evaluation of hypertension in context of known preeclampsia in the period With:DENNY RODRÍGUEZ [facility] [place] [address]- Business (1) When:Within 3 Day(s) [facility]03-08-2023 Evaluation + Plan noteExtracted from: Title:ED NoteAuthor:Mayur Mabry PA-C CDate:01/31/23 Flank pain (R10.9: Unspecifi ed abdominal pain) Headache (R51.9: Headache, unspecified) Orders: CTA Chest Hepatic Function Panel [facility]02-04-2023 Hospital Discharge instructions Patient Education 12/30/2022 13:59:51 FLUID DYNAMICIST - Post D&C, Hysteroscopy, LEEP or Essure/Laparoscopy [...] Instructions - FT (Custom) (Custom) 12/30/2022 13:55:16 FLUID DYNAMICIST - Post D&C, Hysteroscopy, LEEP or Essure/Laparoscopy [...] With:Denny Meza Address: [address], [place] [address] [place] [address]- Business (1) When: Unknown Comments:follow up in 1-2 weeks With:DENNY RODRÍGUEZ Address: [address] [place] [address]- Business (1) When:01/02/2023 09:21:18 [facility]02-04-2023 Evaluation + Plan noteExtracted from: Title:ANES [...] from:Title:ANES Pre-operative NoteAuthor:Kenneth Agustin MDDate: 12/30/22 Plan [place] [employer] Anesthesiologists (ASA) physical status classification: [...] With Cult Reflex US Pelvis Non-OB Complete [facility]01-10-2023 History of Present illness Narrative* Tory [...] Ross MD - 12/05/2022 3:19 PM EST [facility]: This patient was seen in the [facility] by the resident. I reviewed and agree with the care provided by the resident during or immediately following the visit including the patient's medical history, the resident's finding in the physical exam, patient's diagnosis and treatment plan. documented in this [facility]01-07-2023 NoteDepartment of Obstetrics and Gynecology Delivery Discharge Summary Admission on 11/28/2022 12:24 AM Hospital course: Juhi Cope at 35w1d admitted as a transfer from [facility] for [facility]. She was [...] Information for the patient's : Francie Cope [[id number]] female 2425 g (5 lb 5.5 oz) Apgars: Information for the patient's : Francie Cope [[id number]] : Infant: Girl Blood Type/Rh: O Antibody [...] to [facility] [address] [place], [place] [id number] Hours: Sunday to Sunday 10 am to 6 pm docusate sodium 100 MG capsule ibuprofen 600 MG tablet NIFEdipine XL 30 MG 24 hr tablet Activity: Activity as tolerated Diet: Regular diet Follow-up Appointments: - visit - Blood pressure check If a patient meets criteria for hypertension, make sure the following are done prior to discharge: [] Order a blood pressure kit through [facility] (or the patient's own pharmacy on the weekend) [] Order the blood pressure log through [employer] [x] Place an office visit or telephone [...] notify her physician if any of these occur.[facility]01-07-[facility]23 History of Present illness Narrative* [...] with more than 50% of the total eluk-hs-gati time of the visit in counseling/coordination of [...] be monitored and followed by the diet furniture repair technician. CRISS Oshea * Alejandra Arcos [...] and reassuring. CCM. Cx:/-3 FHT: Cat 1 [place]:q3-4 min A/P: 1. IOL-PreEwSF. FHT 130 baseline, with moderate variability, Accelerations present Yes, and rare late deceleration . Cervical exam unchanged. Cytotec x4 placed at this time. Patient intermittently feeling contractions. BP mild range. Cx: 1-/-3 FHP: defer FHT: Cat I [place]: a3-4min A/P: 1. IOL-PreEwSF: FHT Category I, [...] Cx: unchanged FHP: defer FHT: Cat I [place]: q4min A/P: 1. IOL-PreEwSF: FHT Category I, [...] 11/29/2022 6:17 AM Cx:1-2/60/-3 FHT: Cat I [place]:q4-5mins A/P: 1. IOL-PreEwSF: Cat I FHT with [...] per protocol. CCM. Cx:defer FHT: Cat I [place]:q4-6mins A/P: 1. IOL-PreEwSF: Cat I FHT with baseline 120, moderate variability, spontaneous accelerations, and no decelerations. BP normotensive to mild range since last note time. Pitocin @ 2 cc/hr, continue to titrate per protocol. Magnesium sulfate running for seizure prophylaxis, UOP 400 ml over past 4hours. CCM. Cx:defer FHT: Cat I [place]:q4-5mins A/P: 1. IOL-PreEwSF: Cat I FHT with baseline 135, moderate variability, spontaneous accelerations, and no decelerations. BP normotensive to mild range since last note time. Pitocin @ 6 cc/hr, continue to titrate per protocol. Magnesium sulfate running for seizure prophylaxis, UOP 600 ml over past 4hours. Will plan for AROM soon. CCM. Cx:defer FHT: Cat I [place]:irritability A/P: 1. IOL-PreEwSF: Pit @ 8 mu/min. Patient resting comfortably and only irritability tracing on toco. BP most recently mild range. On magnesium sulfate for seizure prophylaxis. UOP adequate. Continue magnesium and continue to titrate pitocin per protocol. Plan for AROM once patient rudi more regularly. Electronically signed by Cortney Velasquez DO 11/29/2022 4:21 PM Cx:470/-3 FHT: Cat 1 [place]:Not tracing A/P: 1. IOL-PreEwSF. FHT 135 baseline, with moderate variability, Accelerations present Yes, and nodecelerations seen . AROM at this time for moderate amount blood tinged fluid. Pitocin at 8cc/hr. Maternal BP mild range. On Magnesium for Seizure prophylaxis. Patient with adequate urinary output. CCM. Cx: defer FHP: defer FHT: Cat II [place]: not tracing well A/P: 1. IOL-PreEwSF: FHT [...] per RN FHP: defer FHT: Cat II [place]: q4min A/P: 1. IOL-PreEwSF: FHT Category II [...] delivery note for details documented in this [facility]01-07-[facility]23 Hospital course Narrative* César Tran DO - 12/02/2022 12:32 PM EST Images from the original note were not included. Department of Obstetrics and Gynecology Delivery Discharge Summary Admission on 11/28/2022 12:24 AM Hospital course: Juhi Cope at 35w1d [facility] She was startedon Magnesium there and [...] Information for the patient's : Francie Cope [[id number]] female 2425 g (5 lb 5.5 oz) Apgars: Information for the patient's : Francie Cope [[id number]] : : Girl Blood Type/Rh: O Antibody [...] to [facility] [address] [place] [address] Hours: Sunday to Sunday 10 am to 6 pm docusate sodium 100 MG capsule ibuprofen 600 MG tablet NIFEdipine XL 30 MG 24 hr tablet Activity: Activity as tolerated Diet: Regular diet Follow-up Appointments: - visit - Blood pressure check If a patient meets criteria for hypertension, make sure the following are done prior to discharge: [] Order a blood pressure kit through [facility] (or the patient's own pharmacy on the weekend) [] Order the blood pressure log through [employer] [x] Place an office visit or telephone [...] any of these occur. documented in this [facility]01-06-2023 Note* Care Coordination - Christine Michelle [...] home. Denies any concerns at this time. [id number] Note* Care Coordination - Christine Michelle RN [...] home. Denies any concerns at this time. [id number] Miscellaneous Notes* Care Coordination - Christine Michelle [...] indicated for this pt. Due to: in [facility] Hospital breast pump, supplies kit, swabs [...] Told patient to check with LC in [facility] for smaller flange sizes * L&D Delivery Note - Irina Kramer DO - 11/30/2022 4:04 AM EST Images from the original note were not included. Vaginal Delivery Note Department of Obstetrics and Gynecology Patient: Juhi Cope : 1995 Date of delivery: 11/30/2022 Pre-operative Diagnosis: Juhi Mojica0 at 35w1d 1. <37 weeks 2. PreEwSF Post-operative Diagnosis: Live Born female Delivering Forming Fixer & Welder Tack(s): Dr. Bowden; Dr. Kramer Information: Information for the patient's : Francie Cope [[id number]] Information for the patient's : Francie Cope [[id number]] Description: normal Meconium Noted: No Anesthesia: epidural [...] change. Clotilde Mg RN documented in this [facility]01-06-[facility] Obstetrics Note* Note - Ligia Bridges RN - 12/01/2022 9:00 AM EST 22.5mm flanges given to patient. Encouraged her to call for observation of pump session and smallerflanges. Martha in NICU to assist with personal pump. [id number] Hospital Discharge instructions* Discharge Instructions* Carol Bowden [...] 8 weeks after delivery. Bleeding may picker feeder and then decrease again around 7-10 days [...] avoid constipation you may take a mild ldlt-krf-ckzhywd stool softener (such as colace) as recommended [...] positive or a Person Under Investigation (PUI) Ecwujm-ay-fcfur transmission of COVID-19 during is unlikely, but after a baby is susceptible to kxycpz-hv-rkpaeq spread. After your baby is born, your [...] clean your hands with an alcohol-based hand district sales coordinator that contains at least 60% alcohol. Clean your hands often Wash your hands often with soap and water for at least 20 seconds, especially after blowing your nose, coughing, or sneezing; going to the bathroom; and before eating or preparing food. If soap and water are not readily available, use an alcohol-based hand district sales coordinator with at least 60% alcohol, covering all [...] to call the local or [facility]. Persons who are placed [...] isolation precautions should be made on a adnl-uv-hmvu basis, in consultation with healthcare providers and [...] respiratory tract signs and symptoms. Ways to [place] with Anxiety & Stress It is normal [...] seen in people before. This virus spreads ykyxbv-ag-pxgoaj through droplets from coughing and sneezing. It [...] water aren't available, use an alcohol-based hand district sales coordinator. Call 911 anytime you think you may [...] of: February 25, 2020 Content Version: 12.4 [employer]ur[employer]. Care instructions adapted under license by your [...] handles, desks, toilets, faucets, sinks) with household clipper machine and EPA-registered disinfectants that are appropriate for [...] appropriate. These supplies include tissues, paper towels, clipper machine and EPA-registered disinfectants (see list link at [facility] website). If a separate bathroom is not [...] be used for other purposes. Consult the political scientist's instructions for cleaning and disinfection products used. [...] used if appropriate for the surface. Follow political scientist's instructions for application and proper ventilation. Check [...] for harder to kill viruses. Follow the political scientist's instructions for all cleaning and disinfection products (e.g., concentration, application method and contact time, etc.). Soft (porous) surfaces such as carpeted floor, rugs, and drapes Remove visible contamination if present and clean with appropriate clipper machine indicated for use on these surfaces. After cleaning: Launder items as appropriate in accordance with the political scientist's instructions. If possible, launder items using the [...] items as appropriate in accordance with the political scientist's instructions. If possible, launder items using the warmest appropriate water setting for the items and dry items completely. Dirty laundry from an ill person can be washed with other people's items. Clean and disinfect clothes hampers according to guidance above for surfaces. If possible, considerplacing a waterproof bag sewer that is either disposable (can be thrown away) or can be laundered. [facility] has a list of EPA approved cleaning products on their website - https://www.cdc.gov/coronavirus/ 2019-ncov/community/home/cleaning-disinfection.html https://www.[employer]/Ggfxc-Rhybflcrzqf-Qtsecotq-Products-List.pdf [employer] with delivery and picker feeder services: [employer]: Free picker feeder at locations Delivery is $12.95 a month Website - [employer] [place]: [place] $2.95 (1st order is free) Delivery is $14.95 Website - [employer] [place]: supervisor treating and pumping is free Delivery is $5.95 Website [employer]: supervisor treating and pumping is $4.95 Delivery is $9.95 Website [employer]: supervisor treating and pumping is $4.95 Delivery is $9.95 Website [employer]: Can be ordered for delivery and picker feeder with [employer] Website - www.SmartAngels.fr [employer]: Free deliver for first 3 orders of $35 or more Website - aldiDriveK Will deliver from [employer], [employer], [employer], and [employer]. Annual membership is $99 Monthly membership is $14 * Attachments The following attachments cannot be sent through Care Everywhere. * Preeclampsia Discharge Instructions (Italian) documented in this [facility]01-05-[facility] Obstetrics Note* Note - Sheila Harrell RN - 11/30/2022 10:37 AM EST Swabs given to patient and educated how to use and to bring to [facility] [id number] Obstetrics Note* Note - Sheila Harrell RN - 11/30/2022 10:30 AM EST Breast pump use indicated for this pt. Due to: in [facility] Hospital breast pump, supplies kit, swabs [...] pump Told patient to check with in [facility] for smaller flange sizes [facility] [id number] NotePatient: Juhi Cope Procedure Summary Date: 11/29/22 [...] discharged once all PACU criteria has been met.[facility] NotePatient: Juhi Cope Procedure Summary [...] Allowed opportunity for questions and acknowledgement of understanding.[facility] Labor and delivery summary note* L&D Delivery Note - Irina Kramer DO - 11/30/2022 4:04 AM EST Images from the original note were not included. Vaginal Delivery Note Department of Obstetrics and Gynecology Patient: Juhi Cope : 1995 Date of delivery: 11/30/2022 Pre-operative Diagnosis: Juhi Sidhu at 35w1d 1. <37 weeks 2. PreEwSF Post-operative Diagnosis: Live Born female Delivering Forming Fixer & Welder Tack(s): Dr. Bowden; Dr. Kramer Information: Information for the patient's : Francie Cope [[id number]] Information for the patient's : Francie Cope [[id number]] Description: normal Meconium Noted: No Anesthesia: epidural [...] Immunity Status: No results found for: RUBELLATAMMI rKamer DO 11/30/2022, 4:04 AM Associated attestation - Carol Bowden MD - 12/01/2022 8:22 AM EST Procedures or Surgery: I was present for all morales elements of the procedure or surgery as described in the resident note. [facility] [id number] NoteEpidural Block Time Out: 11/29/2022 6:17 PM Patient location during procedure: OB Start time: 11/29/2022 6:18 PM End time: 11/29/2022 6:45 PM Reason for block: labor analgesia Staffing Performed: STEAM FRAME OPERATOR Resident/STEAM FRAME OPERATOR: Jimmie Kaur APRN - STEAM FRAME OPERATOR Preanesthetic Checklist Completed: patient identified, IV [...] patient tolerated procedure well with no immediate complications[facility] Plan of care note* Care Plan - Clotilde Mg RN - 11/29/2022 7:45 AM EST The patient will continue to make cervical change. Clotilde Mg RN [facility] [id number] NotePatient: Juhi Cope Procedure Information Date: 11/28/22 [...] products. patient is not NPO Additional Equipment RequestsBaraga [facility] Hospital01-03-2023 NoteLabor Progress Note Date: 11/28/2022 [...] and reassuring. CCM. Cx:-3 FHT: Cat 1 [place]:q3-4 min A/P: 1. IOL-PreEwSF. FHT 130 baseline, with moderate variability, Accelerations present Yes, and rare late deceleration . Cervical exam unchanged. Cytotec x4 placed at this time. Patient intermittently feeling contractions. BP mild range. Cx: 1--3 FHP: defer FHT: Cat I [place]: a3-4min A/P: 1. IOL-PreEwSF: FHT Category I, [...] Cx: unchanged FHP: defer FHT: Cat I [place]: q4min A/P: 1. IOL-PreEwSF: FHT Category I, [...] 11/29/2022 6:17 AM Cx:1-2/60/-3 FHT: Cat I [place]:q4-5mins A/P: 1. IOL-PreEwSF: Cat I FHT with [...] per protocol. CCM. Cx:defer FHT: Cat I [place]:q4-6mins A/P: 1. IOL-PreEwSF: Cat I FHT with baseline 120, moderate variability, spontaneous accelerations, and no decelerations. BP normotensive to mild range since last note time. Pitocin @ 2 cc/hr, continue to titrate per protocol. Magnesium sulfate running for seizure prophylaxis, UOP 400 ml over past 4 hours. CCM. Cx:defer FHT: Cat I [place]:q4-5mins A/P: 1. IOL-PreEwSF: Cat I FHT with baseline 135, moderate variability, spontaneous accelerations, and no decelerations. BP normotensive to mild range since last note time. Pitocin @ 6 cc/hr, continue to titrate per protocol. Magnesium sulfate running for seizure prophylaxis, UOP 600 ml over past 4 hours. Will plan for AROM soon. CCM. Cx:defer FHT: Cat I [place]:irritability A/P: 1. IOL-PreEwSF: Pit @ 8 mu/min. Patient resting comfortably and only irritability tracing on toco. BP most recently mild range. On magnesium sulfate for seizure prophylaxis. UOP adequate. Continue magnesium and continue to titrate pitocin per protocol. Plan for AROM once patient rudi more regularly. Electronically signed by Cortney Velasquez DO 11/29/2022 4:21 PM Cx:/-3 FHT: Cat 1 [place]:Not tracing A/P: 1. IOL-PreEwSF. FHT 135 baseline, with moderate variability, Accelerations present Yes, and no decelerations seen . AROM at this time for moderate amount blood tinged fluid. Pitocin at 8cc/hr. Maternal BP mild range. On Magnesium for Seizure prophylaxis. Patient with adequate urinary output. CCM. Cx: defer FHP: defer FHT: Cat II [place]: not tracing well A/P: 1. IOL-PreEwSF: FHT Category II for brief period of lates vs early deceleration (more content not included)...[facility]01-03-2023 NoteObstetrical History and Physical CHIEF [...] 34w6d Is this patient being delivered between 55g2h-04w4h weeks with an acceptable medical indication (obstetric, maternal, and/or )? NA: Not Applicable: This patient is being delivered outside of the PC-01 range (03q8h-75t0r) for reasons indicated in the medical record. [...] VTE Prophylaxis: Not Indicated (more content not included)...[facility]01-03-2023 History and physical note* Cassie [...] 34w6d Is this patient being delivered between 38w3b-24r4t weeks with an acceptable medical indication (obstetric, maternal, and/or )? NA: Not Applicable: This patient is being delivered outside of the PC-01 range (30p5p-91j8q) for reasons indicated in the medical record. [...] plan. Cassie Constantino MD 11/28/2022, 12:48 AM [facility] [id number] History and physical note* Cassie Constantino MD [...] 34w6d Is this patient being delivered between 42r7b-07i1r weeks with an acceptable medical indication (obstetric, maternal, and/or )? NA: Not Applicable: This patient is being delivered outside of the PC-01 range (01h8i-85y0d) for reasons indicated in the medical record. [...] MD 11/28/2022, 12:48 AM documented in this [facility]01-[facility] Evaluation + Plan note Extracted from:Title:OB High Risk Antepartum Visit *Author:Fredi DORSEY MD Date:11/27/22 Impression and Plan Diagnosis 34 weeks 5 days. Preeclampsia. contractions. Maternal tachycardia.. Course: Worsening, New onset headache may be a signal of worsening symptoms of preeclampsia.. Orders I discussed this case with the maternal- medicine department at [facility] in [facility], Dr. Thea Nieves, she accepted to transfer due to preeclampsia. Plan: Magnesium sulfate per protocol, betamethasone, transfer arrangements are in progress..[facility]08-19-2022 Evaluation + Plan note Extracted from:Title:ED [...] Colace and Proctofoam and follow-up with her FLUID DYNAMICIST physician in the outpatient setting. She is provided with a note for work. Additional diagnosis: Constipation, UTI and [facility]08-19-2022 Hospital Discharge instructions Follow Up Care 07/14/2022 06:07:36 With:Denny Meza Address:Unknown When:07/17/2022 07:24:48 With:DENNY RODRÍGUEZ Address: [address] [place] [place] [address] Business (1) When:Within 3 Day(s) [facility]08-19-2022 Hospital Discharge instructions Follow Up Care 07/14/2022 04:40:16 With:Denny Meza Address: [address], [address] [place] [address]- Business (1) When:07/17/2022 Comments:Appointment has already been scheduledCall Dr if fever>100.5 F, heavy bleedingCall for any problems.Call for severe abdominal painCall physician for heavy vaginal bleedingCall physician if symptoms worsenPlease call if you need to rescheduleReturn for contractions closer, longer, harderReturn ifruptured membranes or vaginal bleeding [facility]05-31-2022 Evaluation + Plan note Diagnostic Tests Pending * Boboc-1-Gecwesgpzli 04/25/22 * NIGEL w/Reflex if POS 04/25/22 * Ceruloplasmin 04/25/22 * HCV Antibody RFX to Quant PCR 04/25/22 * HBV Core Ab 04/25/22 * Hepatitis B Surface Antibody 04/25/22 * Hepatitis B Surface Antigen 04/25/22 * Smooth Muscle Antibody Screen 04/25/22 [facility]05-24-2022 Evaluation note* Encounter Date Diagnosis Assessment Notes Treatment Notes Treatment Clinical Notes March, Elevated liver function tests (I CD-10 - R79.89) LABS INDICATED ABOVE [employer] Other Evaluation note* Diagnosis Pelvic pain in female- Primary Unspecified symptom associated with female genital organs [facility]* Diagnosis Chronic pelvic pain in female- Primary Unspecified symptom associated with female genital organs Constipation, unspecified constipation type High-tone pelvic floor dysfunction Other specified disorders of female genital organs Diastasis of rectus abdominis Dysmenorrhea Other specified dyspareunia documented [facility]* Diagnosis Endometriosis- Primary Endometriosis, site unspecified Pelvic and perineal pain Unspecified symptom associated with female genital organs [facility]* Diagnosis Pelvic pain in female- Primary Unspecified symptom associated with female genital organs [facility]* Diagnosis Pelvic pain in female- Primary Unspecified symptom associated with female genital organs documented in this encounter [facility] note* Diagnosis High-tone pelvic floor dysfunction- Primary Other specified disorders of female genital organs Chronic pelvic pain in female Unspecified symptom associated with female genital organs documented in this encounter [facility] note* Diagnosis Pelvic and perineal pain Unspecified symptom associated with female genital organs documented in this encounter [facility] note* Diagnosis Menorrhagia with regular cycle Pelvic pain in female Unspecified symptom associated with female genital organs Uses control [facility]* Diagnosis Preeclampsia, severe, third trimester- Primary Preeclampsia, severe, third trimester [facility]* Diagnosis Pre-eclampsia, severe, delivered- Primary [facility]* Diagnosis Dysmenorrhea, unspecified documented in this encounter [facility]* Diagnosis Well woman exam with routine gynecological exam Routine gynecological examination [facility]* Diagnosis Hypertension, unspecified type (CMS/HCC)- Primary Paroxysmal tachycardia, unspecified (CMS/HCC) Paroxysmal tachycardia, unspecified Chronic right shoulder pain Pain in joint, shoulder region Scapular dyskinesis Lack of coordination [facility]* Diagnosis Pain in female genitalia on intercourse Dyspareunia Endometriosis Endometriosis, site unspecified documented in this encounter [facility] HealthcareEvaluation noteNo assessment information availableRegency Hospital [facility] Work Phone: Evaluation note* Diagnosis Missed menses , unspecified gestational age Encounter for supervision of normal first in first trimester [facility]* Diagnosis Nonintractable episodic headache, unspecified headache type- Primary Second trimester ([facility]) state, incidental 13 weeks gestation of ([facility]) [facility]* Diagnosis Sinusitis, unspecified chronicity, unspecified location- Primary Second trimester ([facility]) state, incidental 17 weeks gestation of ([facility]) Screening, , for anatomic survey ([facility]) Encounter for anatomic survey [facility]* Diagnosis 20 weeks gestation of ([facility]) Second trimester ([facility]) state, incidental Diabetes mellitus screening Screening for diabetes mellitus [facility]* Diagnosis Wellness examination- Primary Hypertension, unspecified type Lipid screening Screening for lipoid disorders [facility]* Diagnosis Wellness examination- Primary Hypertension, unspecified type Lipid screening Screening for lipoid disorders 24 weeks gestation of ([facility]) Second trimester ([facility]) state, incidental Elevated glucose tolerance test Impaired glucose tolerance test documented [facility]* Diagnosis Gestational diabetes mellitus (GDM) in second trimester, gestational diabetes method of control unspecified [facility] Diagnosis Wellness examination- Primary Hypertension, unspecified type Lipid screening Screening for lipoid disorders 26 weeks gestation of ([facility]) Second trimester ([facility]) state, incidental induced hypertension, antepartum ([facility]) Transient hypertension of , antepartum Gestational diabetes mellitus (GDM) in second trimester, gestational diabetes method of control unspecified ([facility]) [facility]* Diagnosis Wellness examination- Primary Hypertension, unspecified type Lipid screening Screening for lipoid disorders Hypertension affecting , antepartum ([facility])- Primary 27 weeks gestation of ([facility]) Second trimester ([facility]) state, incidental [facility]* Diagnosis Diet controlled gestational diabetes mellitus (GDM) in second trimester- Primary Essential hypertension affecting in third trimester [facility] Diagnosis 28 weeks gestation of - Primary Insulin controlled gestational diabetes mellitus (GDM) in second trimester Essential hypertension affecting in third trimester documented in this encounter [facility]* Diagnosis Essential hypertension affecting in third trimester [facility] Diagnosis Wellness examination- Primary Hypertension, unspecified type Lipid screening Screening for lipoid disorders 29 weeks gestation of ([facility]) Third trimester ([facility]) state, incidental Hypertension affecting , antepartum ([facility]) Gestational diabetes mellitus (GDM), antepartum, gestational diabetes method of control unspecified([facility]) documented in this encounter [facility]* Diagnosis Insulin controlled gestational diabetes mellitus (GDM) in third trimester- Primary Essential hypertension affecting in third trimester documented in this encounter [facility]* Diagnosis Insulin controlled gestational diabetes mellitus (GDM) in second trimester [facility] SystemEvaluation note* Diagnosis Insulin controlled gestational diabetes mellitus (GDM) in second trimester documented in this encounter [facility] SystemEvaluation note* Diagnosis Wellness examination- Primary Hypertension, unspecified type Lipid screening Screening for lipoid disorders Third trimester (HHS-HCC) state, incidental 31 weeks gestation of (HHS-HCC) Pre-eclampsia in third trimester (HHS-HCC) documented in this encounter [facility] HealthcareEvaluation note* Diagnosis Insulin controlled gestational diabetes mellitus (GDM) in third trimester- Primary Essential hypertension affecting in third trimester documented in this encounter [facility] SystemHistory general Narrative - Reported* Type Description Date Medical History headache Surgical HistoryappendectomySurgical Historyshoulder surgerySurgical History endometriosis [address] Other History of Present illness Narrative* 26 [...] engaged x 1 year * working at [employer] in [place] [address] Work Phone: Hospital course Narrative No data available for this section [facility] No data available for this section [facility] HospitalInstructionsNot on filedocumented in this encounter [facility]ructionsNot on filedocumented in this encounter [facility] SystemInstructionsNot on filedocumented in this encounter [facility] SystemInstructionsNot on filedocumented in this encounter [facility]* Attachments The following attachments cannot be sent through Care Everywhere. * Preeclampsia (Italian) documented in this encounter[facility] SystemInstructionsNot on file documented in this encounterProMedica Health SystemInstructionsNot on file documented in this encounterProMedica Health SystemInstructionsNot on file documented in this encounterProMedica Health SystemInstructionsNot on file documented in this encounterProMedica Health SystemProgress note No data available for this section [facility] HospitalReason for visit NarrativePT HERE AT REQUEST OF DR RODRÍGUEZ FOR EVALUATION AND TREATMENT OF ELVATED LIVER FUNCTION- ( DR. SAMUEL PT), LABS FROM DR RODRÍGUEZ REVIEWED BY DR Iraheta [employer] Other Summary Purpose Family History Unknown Family [...] Bilateral ureterolysis Surgeon: Dr. 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 Fluids: 500 [...] to discuss pain related to endometriosis, declined tour operator. 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 Reason for Referral SpecialtyDiagnoses / ProceduresReferred By ContactReferred To ContactMR IMAGING Diagnoses Pelvic and perineal pain Procedures MRI FEMALE PELVIS WO/W IVCON MRI PELVIS W/O & W/CONTRAST MATERIAL Charlene Rodriguez DO [address] [facility] [address] [place] [address] Mr Imaging Referral IDStatusReasonNew Franken DateExpiration DateVisits RequestedVisits [id number] Auto-Generated Referral /[id number] / ProceduresReferred By ContactReferred To [facility] Diagnoses Constipation, unspecified constipation type High-tone pelvic floor dysfunction Diastasis of rectus abdominis Dysmenorrhea Other specified dyspareunia Chronic pelvic pain in female Procedures CONSULT TO PHYSICAL THERAPY PHYSICAL THERAPY EVALUATION HIGH COMPLEX 45 MINS Jihan Downs, 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 [address] [place] [address] [facility] [place] [address] [place] [id number] Referral IDStatLulacaterina DateExpiration DateVisits RequestedVisits [id number] Review Auto-Generated Referral / Chief Complaint and Reason for Visit Chief Complaint Admit Date N94.10 N80.9 February 02, 2025 3:1 6pm Additional Source Comments INFORMATION SOURCE (unrecogn ized section and content) DATE CREATED AUTHOR 10/26/2020 [facility] DATE CREATED AUTHOR AUTHOR'S ORGANIZ ATION 11/06/2020 [facility] DATE CREATED AUTHOR AUTHOR'S ORGANIZ ATION 12/17/2020 [facility] DATE CREATED AUTHOR AUTHOR'S ORGANIZ ATION 04/21/2021 [facility] DATE CREATED AUTHOR AUTHOR'S ORGANIZ ATION 06/05/2021 [facility] DATE CREATED AUTHOR AUTHOR'S ORGANIZ ATION 10/02/2021 [facility] DATE CREATED AUTHOR AUTHOR'S ORGANIZ ATION 02/10/2022 [facility] DATE CREATED AUTHOR AUTHOR'S ORGANIZ ATION 12/05/2022 [facility] DATE CREATED AUTHOR AUTHOR'S ORGANIZ ATION 04/30/2024 [facility] DATE CREATED AUTHOR AUTHOR'S ORGANIZ ATION 02/09/2025 [facility] DATE CREATED AUTHOR AUTHOR'S ORGANIZ ATION 03/15/2025 [facility] DATE CREATED AUTHOR AUTHOR'S ORGANIZ ATION 08/03/2025 [facility] DATE CREATED AUTHOR AUTHOR'S ORGANIZ ATION 08/13/2025 [facility] DATE CREATED AUTHOR AUTHOR'S ORGANIZ ATION 08/16/2025 [facility] DATE CREATED AUTHOR AUTHOR'S ORGANIZ ATION 08/20/2025 [facility] DATE CREATED AUTHOR AUTHOR'S ORGANIZ ATION 08/21/2025 [facility] DATE CREATED AUTHOR AUTHOR'S ORGANIZ ATION 08/29/2025 [facility] DATE CREATED AUTHOR AUTHOR'S ORGANIZ ATION 09/12/2025 [facility] DATE CREATED AUTHOR AUTHOR'S ORGANIZ ATION 10/02/2025 [facility] DATE CREATED AUTHOR AUTHOR'S ORGANIZ ATION 10/08/2025 [facility] Care Team (unrecognized sect ion and content) Team MemberRelationshipSpecialtyStart DateEnd Date Denny Rodríguez MD [address] [place] [address] PCP - GeneralFamily Medicine12/03/14Team MemberRelationshipSpecialtyStart DateEnd Date Denny Rodríguez MD [address] [place] [address] PCP - GeneralFamily Medicine12/03/14Team MemberRelationshipSpecialtyStart DateEnd Date Denny Rodríguez MD [address] [place] [address] PCP - GeneralFamily Medicine12/03/14Team MemberRelationshipSpecialtyStart DateEnd Date Denny Rodríguez MD [address] [place] [address] PCP - GeneralFamily Medicine12/03/14Team MemberRelationshipSpecialtyStart DateEnd Date Denny Rodríguez MD [address] [place] [address] PCP - GeneralFamily Medicine12/03/14Team MemberRelationshipSpecialtyStart DateEnd Date Denny Rodríguez MD [address] [place] [address] PCP - GeneralFamily Medicine12/03/14Team MemberRelationshipSpecialtyStart DateEnd Date Denny Rodríguez MD [address] [place] [address] PCP - GeneralFamily Medicine12/03/14Team MemberRelationshipSpecialtyStart DateEnd Date Denny Rodríguez MD [address] [place] [address] PCP - GeneralFamily Medicine12/03/14Team MemberRelationshipSpecialtyStart DateEnd Date Denny Rodríguez MD [address] [place] [address] PCP - GeneralFamily Medicine12/03/14Team MemberRelationshipSpecialtyStart DateEnd Date Denny Rodríguez MD [address] [place] [address] [facility] - [facility]12/03/14Team MemberRelationshipSpecialtyStart DateEnd Date Denny Rodríguez MD [address] [place] [address] PCP - [facility] Ubdxysaodb31/1/21 Denny Rodríguez MD [address] [place] [address] PCP - GeneralFanvly Medicine04/10/23 Denny Rodríguez MD [address] [place] [address] PCP - [facility]02/24/23 Zenobia [facility] NP [address] [place] [address] Nurse [facility]10/05/23 Trista Thao NP [address] [place] [address] Nurse PractitionerPulmonary Qcrpdjn31/10/23Team MemberRelationshipSpecialtyStart DateEnd Date Denny Rodríguez MD [address] [place] [address] PCP - GeneralFamily Medicine12/03/14Team MemberRelationshipSpecialtyStart DateEnd Date Denny Rodríguez MD [address] [place] [address] PCP - GeneralW[facility]iek [facility] Centerly Medicine12/03/14Team MemberRelationshipSpecialtyStart DateEnd Date Denny Rodríguez MD [address] [place] [id number] PCP - [facility] Oupwjbnnwd59/1/21 Denny Rodríguez MD [address] [place] [facility] PCP - [facility]02/24/23 Eliceo Beltran DO [address] [place] [address] PCP - Generalmily Medicine02/14/24Team MemberRelationshipSpecialtyStart DateEnd Date Denny Rodríguez MD [address] [place] [address] PCP - [facility] Twhtgaaffs25/1/21 Denny Rodríguez MD [address] [place] [address] PCP - [facility]02/24/23 Eliceo Beltran DO [address] [place] [address] PCP - [facility] Medicine02/14/24Team MemberRelationshipSpecialtyStart DateEnd Date Denny Rodríguez MD [address] [place] [address] PCP - [facility] Krjcaxblhk68/1/21 Denny Rodríguez MD [address] [place] [address] PCP - [facility]02/24/23 Eliceo Beltran DO [address] [place] [address] PCP - [facility]02/14/24Team MemberRelationshipSpecialtyStart DateEnd Date Denny Rodríguez MD [address] [place] [address] PCP - [facility] Pstxaflboe93/1/21 Denny Rodríguez MD [address] [place] [address] PCP - [facility]02/24/23 Eliceo Beltran DO [address] [place] [address] PCP - [facility]02/14/24Team MemberRelationshipSpecialtyStart DateEnd Date Denny Rodríguez MD [address] [place] [address] PCP - [facility] Czgpmcuvtg28/1/21 Denny Rodríguez MD [address] [place] [address] PCP - [facility]02/24/23 Eliceo Beltran DO [address] [place] [address] PCP - GeneralFamily Medicine02/14/24Team MemberRelationshipSpecialtyStart DateEnd Date Denny Rodríguez MD [address] [place] [address] PCP - [facility] Nusnjiwlps04/1/21 Eliceo Beltran DO [address] [place] [address] PCP - Generalmily Medicine02/14/24Team MemberRelationshipSpecialtyStart DateEnd Date Eliceo Beltran DO [address] [place] [address] PCP - GeneralFamily Medicine02/14/24Team MemberRelationshipSpecialtyStart DateEnd Date Eliceo Beltran DO [address] [place] [address] PCP - Generalmily Medicine02/14/24 Team Status: Active Member Role Status Dates Denny Rodríguez MD Primary Care Provider Active Team Status: Inactive Member Role Status Dates Denny Rodríguez MD Primary Care Provider Active S tart: February 02, 2025 End: February 02aminta Pop DOAttending ProviderActiveStart: February 02, 2025 End: February 02, 2025Team MemberRelationshipSpecialtyStart DateEnd Date Eliceo Beltran DO [address] [place] [address] PCP - [facility] Medicine02/14/24 Eliceo Beltran DO [address] [place] [address] PCP - [facility] [employer]07/27/2412Team MemberRelationshipSpecialty Start DateEnd Date Eliceo Beltran DO [address] [place] [address] PCP - [facility] Medicine02/14/24 Eliceo Beltran DO [address] [place] [address] PCP - [facility] [employer]07/27/2412Team MemberRelationshipSpecialty Start DateEnd Date Eliceo Beltran DO [address] [place] [address] PCP - [facility] Medicine02/14/24 Eliceo Beltran DO [address] [place] [address] PCP - [facility] [employer]07/27/2412Team MemberRelationshipSpecialty Start DateEnd Date Eliceo Beltran DO [address] [place] [address] PCP - [facility] Medicine02/14/24 Eliceo Beltran DO [address] [place] [address] PCP - [facility] [employer]07/27/2412Te MemberRelationshipSpecialty Start DateEnd Date Eliceo Beltran, DO [address] [place] [address] PCP - [facility] Medicine02/14/24 Eliceo Beltran, DO [address] [place] [address] PCP - [facility] [employer]07/27/2412Team MemberRelationshipSpecialty Start DateEnd Date Eliceo Beltran, DO [address] [place] [address] PCP - [facility] Medicine02/14/24 Eliceo Beltran, DO [address] [place] [address] PCP - [facility] [employer]07/27/2412Team MemberRelationshipSpecialty Start DateEnd Date Eliceo Beltran, DO [address] [place] [address] PCP - [facility] Medicine02/14/24 Eliceo Beltran, DO [address] [place] [address] PCP - [facility] [employer]07/27/2412Te MemberRelationshipSpecialty Start DateEnd Date Eliceo Beltran, DO [address] [place] [address] PCP - Generalmily Medicine02/14/24 Eliceo Beltran, [address] [place] [address] PCP - [facility] [employer]07/27/2412Team MemberRelationshipSpecialty Start DateEnd Date Eliceo Beltran DO [address] [place] [address] PCP - [facility] Medicine02/14/24 Eliceo Beltran, [address] [place] [address] PCP - [facility] [employer]07/27/2412Team MemberRelationshipSpecialty Start DateEnd Date Eliceo Beltran DO [address] [place] [address] PCP - [facility] Medicine02/14/24 Eliceo Beltran DO [address] [place] [address] PCP - [facility] [employer]07/27/2412Team MemberRelationshipSpecialty Start DateEnd Date Eliceo Beltran DO [address] [place] [address] PCP - [facility] Medicine02/14/24 Eliceo Beltran DO [address] [place] [address] PCP - [facility] [employer]07/27/2412Team MemberRelationshipSpecialty Start DateEnd Date Denny Rodríguez MD [address] [place] [address] PCP - [facility] Medicine12/02/18 MemberRelationshipSpecialtyStart DateEnd Date Denny Rodríguez MD [address] [place] [address] PCP - [facility] Medicine12/02/18 MemberRelationshipSpecialtyStart DateEnd Date Eliceo Beltran, DO [address] [place] [address] PCP - [facility]02/14/24 Eliceo Beltran, DO [address] [place] [address] PCP - [facility] [employer]07/27/2412Te MemberRelationshipSpecialty Start DateEnd Date Eliceo Beltran, DO [address] [place] [address] PCP - [facility]02/14/24 Eliceo Beltran, DO [address] [place] [address] PCP - [facility] [employer]07/27/2412Te MemberRelationshipSpecialty Start DateEnd Date Eliceo Beltran, DO [address] [place] [address] PCP - [facility]02/14/24 Eliceo Beltran, DO [address] [place] [address] PCP - [facility] [employer]07/27/2412Team MemberRelationshipSpecialty Start DateEnd Date Eliceo Beltran DO [address] [place] [address] PCP - GeneralFamily Medicine02/14/24 Eliceo Beltran DO [address] [place] [address] PCP - [facility] [employer]07/27/2412Team MemberRelationshipSpecialty Start DateEnd Date Denny Rodríguez MD [address] [place] [address] PCP - GeneralFamily Medicine12/02/18Team MemberRelationshipSpecialtyStart DateEnd Date Eliceo Beltran DO [address] [place] [address] PCP - GeneralFamily Medicine02/14/24 Eliceo Beltran DO [address] [place] [address] PCP - [facility] [employer]07/27/2412Team MemberRelationshipSpecialty Start DateEnd Date Eliceo Beltran DO [address] [place] [address] PCP - GeneralFamily Medicine02/14/24 Eliceo Beltran DO [address] [place] [address] PCP - [facility] [employer]07/27/2412Team MemberRelationshipSpecialty Start DateEnd Date Denny Rodríguez MD [address] [place] [address] PCP - Generalmily Medicine12/02/18Team MemberRelationshipSpecialtyStart DateEnd Date Denny Rodríguez MD [address] [place] [address] PCP - [facility] Centerly [facility]12/02/18Team MemberRelationshipSpecialtyStart DateEnd Date Eliceo Beltran DO [address] [place] [address] [facility]/24 Eliceo Beltran DO [address] [place] [address] PCP - [facility] [employer]07/27/2412Team MemberRelationshipSpecialty Start DateEnd Date Eliceo Beltran DO [address] [place] [address] PCP - [facility] Medicine02/14/24 Eliceo Beltran DO [address] [place] [address] PCP - [facility] [employer]07/27/2412Team MemberRelationshipSpecialty Start DateEnd Date Denny Rodríguez MD [address] [place] [address] [facility] - [facility] Medicine12/02/18Team MemberRelationshipSpecialtyStart DateEnd Date Denny Rodríguez MD [address] [place] [address] PCP - GeneralFamily Medicine12/02/18Team MemberRelationshipSpecialtyStcoupland DateEnd Date Denny Rodríguez MD [address] [place] [address] PCP - [facility] Gmgvsyikht61/1/ Denny Rodríguez MD [address] [place] [address] PCP - GeneralFamily Medicine Denny Rodríguez MD [address] [place] [address] PCP - [facility] Eliceo Beltran DO [address] [place] [address] PCP - [facility] Centerly Medicine02/14/24 Eliceo Beltran DO [address] [place] [address] PCP - [facility] [employer]07/27/2412 [facility] NP [address] [place] [address] Nurse PractitionerFamily Gjbwmedw86/10/235 Trista Thao NP [address] [place] [address] Nurse PractitionerPulmonary Dpwaimj69/10/235Team MemberRelationship SpecialtyStart DateEnd Date Eliceo Beltran DO [address] [place] [address] PCP - GeneralFamily Medicine02/14/24 Eliceo Beltran [address] [place] [address] PCP - [facility] [employer]07/27/2412Team MemberRelationshipSpecialty Start DateEnd Date Denny Rodríguez MD [address] [place] [address] PCP - GeneralFamily Medicine12/02/18 Source Comments (unrecognize d section and content) In the event this informatio n is protected by the Federal Confidentiality of Alcohol and Drug Abuse Patient Records regulations: The Federal rules restrict any use of the information to criminally investigate or prosecute any alcohol or drug abuse patient.[facility] HospitalIn the event this information is protected by the Federal Confidentiality of Alcohol and Drug Abuse Patient Records regulations: The Federal rules restrict any use of the information to criminally investigate or prosecute any alcohol or drug abuse patient.[facility] HospitalIn the event this information is protected by the Federal Confidentiality of Alcohol and Drug Abuse Patient Records regulations: The Federal rules restrict any use of the information to criminally investigate or prosecute any alcohol or drug abuse patient.[facility] HospitalIn the event this information is protected by the Federal Confidentiality of Alcohol and Drug Abuse Patient Records regulations: The Federal rules restrict any use of the information to criminally investigate or prosecute any alcohol or drug abuse patient.[facility] HospitalIn the event this information is protected by the Federal Confidentiality of Alcohol and Drug Abuse Patient Records regulations: The Federal rules restrict any use of the information to criminally investigate or prosecute any alcohol or drug abuse patient.[facility] HospitalIn the event this information is [...] prosecute any alcohol or drug abuse patient.[facility] HospitalIn the event this information is protected by the Federal Confidentiality of Alcohol and Drug Abuse Patient Records regulations: The Federal rules restrict any use of the information to criminally investigate or prosecute any alcohol or drug abuse patient.[facility] HospitalIn the event this information is protected by the Federal Confidentiality of Alcohol and Drug Abuse Patient Records regulations: The Federal rules restrict any use of the information to criminally investigate or prosecute any alcohol or drug abuse patient.[facility] HospitalIn the event this information is protected by the Federal Confidentiality of Alcohol and Drug Abuse Patient Records regulations: The Federal rules restrict any use of the information to criminally investigate or prosecute any alcohol or drug abuse patient.[facility] HospitalIn the event this information is protected by the Federal Confidentiality of Alcohol and Drug Abuse Patient Records regulations: The Federal rules restrict any use of the information to criminally investigate or prosecute any alcohol or drug abuse patient.[facility] HospitalIn the event this information is protected by the Federal Confidentiality of Alcohol and Drug Abuse Patient Records regulations: The Federal rules restrict any use of the information to criminally investigate or prosecute any alcohol or drug abuse patient.[facility] HospitalIn the event this information is protected by the Federal Confidentiality of Alcohol and Drug Abuse Patient Records regulations: The Federal rules restrict any use of the information to criminally investigate or prosecute any alcohol or drug abuse patient.[facility] HospitalIn the event this information is protected by the Federal Confidentiality of Alcohol and Drug Abuse Patient Records regulations: The Federal rules restrict any use of the information to criminally investigate or prosecute any alcohol or drug abuse patient.[facility] HospitalIn the event this information is protected by the Federal Confidentiality of Alcohol and Drug Abuse Patient Records regulations: The Federal rules restrict any use of the information to criminally investigate or prosecute any alcohol or drug abuse patient.[facility] Reason for Visit (unrecogniz ed section and content) ReasonCommentsMenstrual ProblemReasonCommentsVaginal BleedingReasonComments EndometriosisReasonCommentsInsurance AuthorizationOrilissaReasonCommentsPelvic PainSpecialtyDiagnoses / ProceduresReferred By ContactReferred To ContactOB/FLUID DYNAMICIST / GYNECOLOGY Diagnoses Painful menstrual periods Painful Periods Procedures OFFICE/OUTPATIENT ESTABLISHED SF MDM 10-19 MIN EST WHI PATIENT Jihan Downs, UNDERCOVER 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 [address] [place] [id number] Jihan Downs, UNDERCOVER 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 [address] [place] [id number] Referral IDStatusReasonStart DateExpiration DateVisits RequestedVisits [id number] MRI SpecialtyDiagnoses / ProceduresReferred By ContactReferred To ContactMR IMAGING Diagnoses Pelvic and perineal pain Procedures MRI FEMALE PELVIS WO/W IVCON MRI PELVIS W/O & W/CONTRAST MATERIAL Charlene Rodriguez DO [address] [facility] [address] [place] [address] Mr Imaging [place] [address] Referral IDStatusReasonStart DateExpiration DateVisits RequestedVisits [id number] Auto-Generated Referral /[id number] DateCommentsRefill Crkwiap4601/02/2024eason CommentsMenorrhagiaCramping with bleedingReasonCommentsSurgery Cancelled SpecialtyDiagnoses / ProceduresReferred By ContactReferred To Contact Diagnoses Preeclampsia, severe, third trimester Procedures O14.13 - Preeclampsia, severe, third trimester Kathe Ryder, [address] [place] [address] [facility] [address] [place] [address] Referral IDStatusReasonStart DateExpiration DateVisits RequestedVisits [id number] Pressure CheckReasonCommentsDysmenorrhea ReasonCommentsWell Women VisitReasonCommentsShoulder PainReasonCommentsPainful IntercourseReasonCommentsAmenorrheaReasonCommentsRoutine VisitReason CommentsGestational DiabetesSpecialtyDiagnoses / ProceduresReferred By Contact Referred To ContactMaternal and Medicine Diagnoses Gestational diabetes mellitus (GDM) in second trimester, gestational diabetes method of control unspecified Nathan Pop, DO [address] [place] [address] [place] [address] Phone: tel: fax: Maternal- Medicine at [facility] [address] [place] [address] Phone: tel: fax: Referral IDStatusReasonStart DateExpiration DateVisits RequestedVisits [id number] Review Specialty Services Required /[id number] consult Scheduled Active and Recently Administ ered [...] RN) * 0112 (New Bag - Provider: aLni Fraga, DIALLO) * 0300 (Stopped - Provider: [...] every 2-3 minutes with cervical changes or Todd units (MVU) greater than 200 in a [...] BE BASED ON THE PRIMARY CLINICAL RECORDS. [facility] [employer] provides no warranty or guarantee of the accuracy or completeness of information in this document.
== END 2025-11-04 13:50 | disposition home or self-care (01) ==
LOC: FBCO 13:07 → FBC 13:09
PROVIDERS: Family Provider Family Medicine; PCP Family Medicine; Visit Provider Obstetrics & Gynecology
DX: O24.419 Gestational diabetes mellitus in pregnancy, unspecified control (principal); Z3A.36 36 weeks gestation of pregnancy
CPT/HCPCS: 59025

== ENCOUNTER 2025-11-07 10:01 | Outpatient (OUT) | payer OTHER, SELFPAY ==
--- OUTSIDE RECORDS SUMMARY | 2025-11-03 14:30 | XMS_ITS | Encounter Summary ---
Author Organization [facility] [employer] [facility] tem Address [facility] [id number] [address] [place] [address] Care Team Providers Care Surface Hydrologist Name Role Phone Cruz Rodríguez MD Primary Care Provider Reason for Visit * ReasonCommentsGestational DiabetesHypertension Encounter Details DateTypeDepartmentCare Team (Latest Contact Info)Mpnhaqfjpsy27/09/2025 2:30 PM ESTOffice Visit Maternal- Medicine at [facility] [address] [place] [phone] Kayleigh Rizzo PALuis Angel [address] [address] Insulin controlled gestational diabetes mellitus (GDM) in [...] or more drinks on one occasion?Never10/16/2025ChildcareAnswer Date UisvgxvjQtqltpbjgOmivqhj84/13/2019EmploymentAnswerDate RecordedEmployment Jgzmkjy0105/08/2019Hunger ScreeningAnswerDate RecordedWithin the past 12 months we worried whether our food would run out before we got money to buy more.Never True09/10/2025Within the past 12 months the food we bought just didn't last and we didn't have money to get more.Never True09/10/2025Purpose - LifeAnswerDate RecordedPurpose and direction in gyliMogecny63/11/2021Estimated Date of GbqyfrjjPxsznsyfXqk17/03/2026Based on last menstrual period of 02/21/2025 (Exact Date)Sex and Gender InformationValueDate RecordedSex Assigned at BirthNot on fileLegal GvxFbsyhj95/07/2019 2:55 PM ESTGender IdentityNot on fileSexual OrientationNot on filedocumented as of this encounter Last Filed Vital Signs Vital SignReadingTime TakenCommentsBlood Onlputuo369/8511/03/2025 2:41 PM EST Ysvdt95520/09/2025 2:41 PM ESTTemperature--Respiratory Rate--Oxygen Saturation-- Inhaled Oxygen Concentration--Ubjmcv32.1 kg (172 lb 3.2 oz)11/03/2025 2:41 PM NGNMxxugv130.5 cm (5' 2.01 )11/03/2025 2:41 PM ESTBody Mass Index31.4911/03/2025 2:41 PM ESTdocumented in this encounter Progress Notes * Kayleigh Rizzo PA-C - 11/03/2025 2:30 PM EST Maternal- Medicine Consultation VIDEO Patient is present at work, provider present at [facility] HISTORY OF PRESENT ILLNESS: Driss Gama [...] by e-mail to: or by fax to: [phone] Kayleigh Rizzo PA-C Maternal- Medicine Office phone: [phone] Kayleigh Rizzo PA-C 11/03/25 1553 * Kameron [...] Cruz Rodríguez MD [address] [place] [address] PCP - GeneralFamily Medicine12/02/18documented as of this encounter
--- OUTSIDE RECORDS SUMMARY | 2025-11-03 15:08 | XMS_ITS | Encounter Summary ---
Author Organization [facility] [email or web address] [facility] tem Address [id number] [address] [place] [address] Care Team Providers Care Lost Charge Card Clerk Name Role Phone Cruz Rodríguez MD Primary Care Provider [phone] Reason for Visit * ReasonCommentsHypertension Encounter Details DateTypeDepartmentCare Team (Latest Contact Info)Yjuptewurao87/09/2025 3:08 PM EST - 11/03/2025 5:57 PM ESTHospital Encounter [facility] [address] [place] [id number] Trista Leach, [address] [place] [place] [address] Insulin controlled gestational diabetes mellitus (GDM) in [...] or more drinks on one occasion?Never09/10/2025hildcareAnswer Date DoqdkubcGczpszrswYosdlif52/13/2019EmploymentAnswerDate RecordedEmployment Nzrdvtd0705/08/2019Hunger ScreeningAnswerDate RecordedWithin the past 12 months we worried whether our food would run out before we got money to buy more.Never True09/10/2025Within the past 12 months the food we bought just didn't last and we didn't have money to get more.Never True09/10/2025Purpose - LifeAnswerDate RecordedPurpose and direction in xwmaZjkraiq32/11/2021Estimated Date of NyowiyubFnodnvnrAnr39/03/2026Based on last menstrual period of 02/21/2025 (Exact Date)Sex and Gender InformationValueDate RecordedSex Assigned at BirthNot on fileLegal BxoIabodn30/07/2019 2:55 PM ESTGender IdentityNot on fileSexual OrientationNot on filedocumented as of this encounter Last Filed Vital Signs Vital SignReadingTime TakenCommentsBlood Ireswhcd319/6711/03/2025 4:45 PM EST Gmgxj728911/03/2025 4:45 PM XBMUcevogggskk00.6 ??C (97.8 ??F)11/03/2025 3:26 PM ESTRespiratory Mfuv353901/04/2025 3:26 PM ESTOxygen Saturation--Inhaled Oxygen Concentration--Fqxsyd10 kg (172 lb)11/03/2025 3:26 PM DNNAmwkvw398.5 cm (5' 2 ) 11/03/2025 3:26 PM [...] from the original note were not included. [facility] Emergency Department Chief Complaint: Chief Complaint [...] Results Component Value Date GLUF 82 08/15/2025 MINIULA2JP 152 08/15/2025 PGWXVGS8VZ 169 08/15/2025 XRBADCM6WW 141 08/15/2025 Physical Exam General appearance - [...] as of this encounter Procedures Procedure NamePriorityDate/TimeAssociated BwvvpozjrQwqqycsuMVTHFAU33/09/2025 3:54 PM EST CBC (NO DIFF)STAT101/04/2025 3:54 PM EST URIC AOGGGMFX52/09/2025 3:54 PM EST COMPREHENSIVE METABOLIC UAWOMDYIT58/09/2025 3:54 PM EST PROTEIN CREAT IRKHTPGWM60/09/2025 3:39 PM EST documented in this encounter Results * (ABNORMAL) CBC without diff (11/03/2025 3:54 PM EST)ComponentValueRef Range Test MethodAnalysis TimePerformed AtPathologist ThzdlyunzNCE48.3(H)4 - 11 10^9/11/03/2025 4:30 PM [facility]ORATORYRBC Count4.07 3.8 - 5.2 10^12/L101/04/2025 4:30 PM [facility] Vqyzvjrgfl83.311.7 - 15.5 g/dL11/03/2025 4:30 PM [facility] MOCYODHKCJQhujhfhibf10.935 - 47 %11/03/2025 4:30 PM [facility] URBYFYAXEZACR1822 - 100 fL11/03/2025 4:30 PM [facility] UHKGTXLQQMDCU93.327 - 34 pg11/03/2025 4:30 PM [facility] DJIFWABEHLJFEJ67.432 - 36 g/dL11/03/2025 4:30 PM [facility] HQRIPTIQYZHSQ32.611.5 - 15 %11/03/2025 4:30 PM [facility] LABORATORYPlatelet Ckvaw510827 - 450 10^9/L101/04/2025 4:30 PM [facility] LABORATORYMPV8.17 - 12 fL11/03/2025 4:30 PM [facility] LABORATORYSpecimen (Source)Anatomical Location / Laterality Collection Method / VolumeCollection TimeReceived TimeBloodVenous blood / UnknownVenipuncture / Qqogogq6911/03/2025 3:54 PM EST11/03/2025 4:18 PM EST Narrative Authorizing ProviderResult TypeResult StatusDeirdre Hernandez BISQUE GRADER-CNMLAB BLOOD ORDERABLESFinal ResultPerforming OrganizationAddressCity/State/ZIP CodePhone Number [facility] [address] [place] [id number], * Uric acid (11/03/2025 3:54 PM EST)ComponentValueRef RangeTest MethodAnalysis TimePerformed AtPathologist SignatureURIC ACID6.02.6 - 7.2 mg/dL11/03/2025 4:52 PM [facility] LABORATORYSpecimen (Source)Anatomical Location / LateralityCollection Method / VolumeCollection TimeReceived Time BloodVenous blood / UnknownVenipuncture / Kszyujz1811/03/2025 3:54 PM EST 11/03/2025 4:18 PM EST Narrative Authorizing ProviderResult TypeResult StatusAllison Hernandez BISQUE GRADER-CNMLAB BLOOD ORDERABLESFinal ResultPerforming OrganizationAddressCity/State/ZIP CodePhone Number [facility] [address] [place] [address], * LDH (11/03/2025 3:54 PM EST)ComponentValueRef RangeTest MethodAnalysis Time Performed AtPathologist SiuurfwawYEW321769 - 235 U/L101/04/2025 4:[address] [facility] LABORATORYSpecimen (Source)Anatomical Location / LateralityCollection Method / VolumeCollection TimeReceived TimeBloodVenous blood / UnknownVenipuncture / Idoagne4311/03/2025 3:54 PM EST11/03/2025 4:18 PM EST Narrative Authorizing ProviderResult TypeResult StatusAllison Hernandez BISQUE GRADER-CNMLAB BLOOD ORDERABLESFinal ResultPerforming OrganizationAddressCity/State/ZIP CodePhone Number [facility] [address] [place] [address], * (ABNORMAL) Comprehensive metabolic panel (11/03/2025 3:54 PM EST)Component ValueRef RangeTest MethodAnalysis TimePerformed AtPathologist SignatureSODIUM 428909 - 146 mmol/L101/04/2025 4:52 PM [facility] POTASSIUM3.73.5 - 5.0 mmol/L101/04/2025 4:52 PM [facility] MMYIJRFRDXQBWNBBTD21892 - 109 mmol/L101/04/2025 4:52 PM [facility] LABORATORYCARBON SOWDCQO18(L)22 - 32 mmol/L101/04/2025 4:52 PM [facility] LABORATORYANION LUU219 - 15 mmol/L101/04/2025 4:[address] [facility]ORATORYBLOOD UREA YXQELDKT432 - 23 mg/dL11/03/2025 4:52 PM [facility] LABORATORYCREATININE0.580.40 - 1.00 mg/dL 11/03/2025 4:52 PM [facility]ORATORYComment:METHOD TRACEABLE TO IDMS HABYBHJGIBPBVHH298(H)65 - 99 mg/dL11/03/2025 4:52 PM [facility] LABORATORYCALCIUM8.68.5 - 10.5 mg/dL11/03/2025 4:52 PM [facility]ORATORYTOTAL PROTEIN6.66.0 - 8.0 g/dL 11/03/2025 4:52 PM [facility] LABORATORYALBUMIN3.73.2 - 5.3 g/dL11/03/2025 4:52 PM [facility] LABORATORYALKALINE SRCLMXYQVLW214(H)39 - 130 U/L101/04/2025 4:52 PM [facility] CHWAHXUPTLQXW38<=41 U/L101/04/2025 4:52 PM [facility] LITQCZEYSPPFR00<=31 U/L101/04/2025 4:52 PM [facility] LABORATORYBILIRUBIN,TOTAL1.00.3 - 1.2 mg/dL11/03/2025 4:52 PM [facility]ORYEGFR Non-Race Dependent>90>=60 ml/min/1.73sq.m 11/03/2025 4:52 PM [facility] LABORATORYComment: Reported eGFR is based on the CKD-EPI 2020 equation that does not use a race coefficient. Specimen (Source)Anatomical Location / LateralityCollection Method / Volume Collection TimeReceived TimeBloodVenous blood / UnknownVenipuncture / Unknown 11/03/2025 3:54 PM EST11/03/2025 4:18 PM EST Narrative Authorizing ProviderResult TypeResult StatusAllison Hernandez BISQUE GRADER-CNMLAB BLOOD ORDERABLESFinal ResultPerforming OrganizationAddressCity/State/ZIP CodePhone Number [facility] [address] [place] [address], * Protein creat ratio (11/03/2025 3:39 PM EST)ComponentValueRef RangeTest Method Analysis TimePerformed AtPathologist SignatureURINE PROTEIN, RANDOM (MG/L)110 <120 mg/L101/04/2025 4:36 PM [facility] LABORATORYURINE CREATININE,RDM90.72mg/dL11/03/2025 4:36 PM [facility]ORATORYU/PRO/CANAL SUPERINTENDENT RATIO CALC0.12<=0. 4:36 PM ESTTOREGIONAL WEST MEDICAL [facility] LABORATORYSpecimen (Source)Anatomical Location / LateralityCollection Method / VolumeCollection TimeReceived TimeUrineUrine specimen collection, clean catch / UnknownCollection / Dzmfdph0711/03/2025 3:39 PM EST11/03/2025 4:[address] [facility] - 11/03/2025 4:36 PM EST Nephrotic Syndrome is associated with ratios >3.5 Authorizing ProviderResult TypeResult StatusAllison Mary BISQUE GRADER-CNMURINE ORDERABLESFinal ResultPerforming OrganizationAddressCity/State/ZIP CodePhone Number [facility] [address] [place] [address], documented in this encounter Visit Diagnoses Diagnosis [...] For 1 day New Bag11/03/2025 4:02 PM [facility]996 mL/hr250 mL/hr metoclopramide (REGLAN) injection 10 mg [...] DateEnd Date Cruz Rodríguez MD [address] [place] [address] PCP - GeneralFamily Medicine12/02/18documented as of this encounter
--- OUTSIDE RECORDS SUMMARY | 2025-11-07 10:05 | XMS_ITS | CCD ---
Author Organization [facility] Care Team Providers Care Cafeteria Counter Attendant Name Role Phone Unavailable Unavailable POCOPAL QUINTEROS Referring Unavailable DENNY RODRÍGUEZ Primary Care Unavailable OPAL LARA Referring Unavailable DENNY RODRÍGUEZ Primary Care Unavailable DENNY RODRÍGUEZ Primary Care Physician Domo Hodges Unavailable PAOLO DIALLO Attending Unavailable KATHE RYDER Admitting Unavailable KATHE RYDER Attending Unavailable Denny Rodríguez MD Primary Care Provider [phone] Denny Rodríguez MD Unavailable Denny Rodríguez MD Primary Care Provider [phone] Denny Rodríguez MD Unavailable [phone] Kita MANAGER FRAUD, Zenobia Unavailable Keesha MANAGER FRAUD, Trista R Unavailable Denny Rodríguez MD Primary [...] Admitting Unavailable Kaftan DO Eliceo R Unavailable [phone] Yomaira BELTRAN Attending Unavailable KAFTAN, G [...] Unavailable Denny Rodríguez MD Primary Care Provider [phone] KIESHA, NATHAN R Referring Unavailable RODRÍGUEZ, DENNY A Primary Care Unavailable MADHURI MONROY Attending Unavailable RODRÍGUEZ, DENNY A Referring Unavailable RODRÍGUEZ, DENNY A Primary Care Unavailable Denny Rodríguez MD Unavailable Denny Rodríguez MD Primary Care Provider Denny Rodríguez MD Unavailable Kita MANAGER FRAUD, Zenobia Unavailable Keesha MANAGER FRAUD, Trista R Unavailable [phone] ELICEO BELTRAN Attending Unavailable KIESHA, NATHAN Attending [...] [No Known Medication Allergies]Propensity to adverse reactions (disorder)[facility] Medications Current Medications MedicationDrug Class(es)DatesSig (Normalized)Sig (Original)acetaminophen 325 mg / butalbital 50 mg / caffeine 40 mg oral tablet (14 sources)Barbiturate, Central Nervous System Stimulant, MethylxanthineStart: 02-19-2024 End: 18-45-8476oxzy 1 tablet by mouth every six hours for headache cygtxlzgsx-vvnybtffaulkp-odajzcxb 50-325-40 MG tablet Indications: Other migraine without status migrainosus, not intractable Take 1 tablet by mouth every 6 (six) hours if needed for headaches 20 tablet 02/19/2024 05/01/2025 Discontinuedatenolol 25 mg oral tablet (4 sources)beta-Adrenergic BlockerStart: 97-94-4658lrhp 1 mg by mouth once daily atenolol 25 mg Tab mg tab(s), Oral, Daily, Refills(s) 0 Start Date: 02/02/21 Status: OrderedStart: 08-06-2017 End: 67-17-0628jjlo 1 tablet by mouth once dailyAtenolol 50 mg tablet Discontinued 50 MG PO Daily August 06, 2017 12:00am October 16, 2018 3 :34pmbaclofen suppository 10 mg (CPD) (8 sources)Start: 09-42-5190irrwhrap suppository 10 mg (CPD) Indications: High- tone pelvic floor dysfunction , Chronic pelvic pain in female Unwrap and insert one suppository vaginally daily at bedtime. 30 Suppository 2 08/24/2023 Active Comment on above:Unwrap and insert one suppository vaginally daily at bedtime. Blood Glucose Monitoring Suppl (D-Care Glucometer) w/Device kit (20 sources)Start: 08-20-2025 End: 89-34-2377Qqkan Glucose Monitoring Suppl (D-Care Glucometer) w/Device kit Indications: Gestational diabetes mellitus (GDM), antepartum, gestational diabetes method of control unspecified ([facility]) , Elevated glucose tolerance test 1 kit Daily Use four times daily to check FSBS. In the morning prior to breakfast & 1 hour after each meal for a total of 4times daily. 1 kit 08/20/2025 08/20/2026 Activecephalexin 500 mg oral capsule (6 sources)Cephalosporin AntibacterialStart: 02-14-2021 End: 85-67-2675hgat 1 capsule by mouth every twelve hoursKeflex 500 mg Cap 500 mg = 1 cap(s), Oral, q12hr, X 7 day(s), # 14 cap(s), Refills(s) 0 Start Date: 07/14/22 Stop Date: 07/21/22 Status: OrderedStart: 03-14-2019 End: 09-21-7818bqpp 1 capsule by mouth every twelve hoursCephalexin (Keflex) 500 mg capsule Discontinued 500 MG PO Q12H 14 March 14, 2019 12:00am August 04, 2019 8:18amcyclobenzaprine hydrochloride 5 mg oral tablet (20 sources)Muscle RelaxantStart: 12-30-2024 End: 54-75-7465dato 1 tablet by mouth in the morning, [...] 30 tablet 12/30/2024 01/09/2025 ActiveStart: 05-01-2023 End: 60-27-7529tzcc 1 tablet by mouth at bedtime as neededcyclobenzaprine (FLEXERIL) 5 mg tablet Indications: Dysmenorrhea , Chronic pelvic pain in female Take 1 tablet by mouth at bedtime as needed. 30 tablet 1 05/01/2023 ActiveStart: 94-07-6456grwk 1 tablet by mouth three times daily [...] hydrochloride 4 mg oral tablet (10 sources)Start: 91-58-9005axqi 1 mg by mouth three times dailycyproheptadine 4 mg Tab mg tab(s), Oral, TID, Refills(s) 0 Start Date: 02/02/21 Status: Ordered Repeat number: 1Dasetta oral tablet (1 source)Start: 96-60-7071nmuf 1 tablet by mouth once dailyDasetta oral tablet 1 tab(s), Oral, Daily, Refill(s) 0, control/menstrual regulation Start Date: 11/23/16 Status: Ordereddocusate sodium 100 mg oral capsule (7 sources)Start: 11-30-2022 End: 35-96-6967jxnb 1 capsule by mouth twice daily as needed for constipation Docusate Sodium (DSS) 100 MG capsule Take 1 capsule (100 mg) by mouth 2 times daily as needed for constipation (Vaginal Delivery) for up to 10 days. 60 capsule 0 12/01/2022 12/31/2022 ActiveStart: 07-14-2022 End: 68-03-5533oglz 1 capsule by mouth twice dailyColace 100 mg Cap 100 mg = 1 cap(s), Oral, BID, X 10 day(s), # 20 cap(s), Refills(s) 0 Start Date: 07/14/22 Stop Date: 07/24/22 Status: Orderedelagolix 150 mg oral tablet (13 sources)Start: 07-16-2023 End: 20-66-2495takm 1 tablet by mouth once dailyelagolix (ORILISSA) 150 mg tablet Take 1 tablet (150 mg) by mouth once daily. 30 tablet 11 07/16/2023 07/15/2024 ActiveStart: 63-14-8053uipc 1 tablet by mouth twice dailyOrilissa 200 MG Oral Tablet take 1 tablet by mouth twice a day Quantity: 60 Refills: 4 Ordered: 09-Feb-2022 Charlene Rodriguez DO Start : 09-Feb-2022 ActiveComment on above:Take 1 tablet (150 mg) by mouth once daily.ergocalciferol 0.05 mg oral capsule (1 source)Provitamin D2 CompoundStart: 55-69-0256Dufmjqj D2 2000 intl units oral capsule Oral, Daily, Refills(s) 0 Start Date: 02/02/21 Status: OrderedEthinyl Estradiol / Levonorgestrel (8 sources)Progestin, Estrogen, Progestin-containing Intrauterine DeviceStart: 04-03-2024 End: 35-18-1373pejikpquoigmla-ethinyl estradiol (Jolessa) 0.15-0.03 MG tablet Indications: Uses control TAKE1 TABLET BY MOUTH EVERY MORNING 91 tablet 3 04/03/2024 08/18/2024 Discontinued (Other)Start: 29-00-4475ncagqscpfmkzwx- ethinyl estradiol (Jolessa) 0.15-0.03 MG tablet Indications: Uses control TAKE1 TABLET BY MOUTH EVERY MORNING 91 tablet 3 04/03/2024 ActiveStart: 01-10-2024 End: 93-38-1109zuio 1 tablet by mouth in the morning, then take 1 tablet by mouth once dailylevonorgestrel-ethinyl estradiol (Jolessa) 0.15-0.03 MG tablet Indications: Uses control Take1 tablet by mouth in the morning. Take 1 tablet by mouth daily. 90 tablet 0 01/10/2024 04/09/2024 Activeethinyl estradiol 0.035 mg / norgestimate 0.25 mg oral tablet (4 sources)Progestin, EstrogenStart: 73-03-8374ubylmubndewq-ethinyl estradiol (Ortho-Cyclen) 0.25-35 MG-MCG tablet 1 (one) time each day at the same time. 0 01/15/2023 ActiveStart: 81-49-8951svwm 1 tablet by mouth once dailyNorgestimate- Ethinyl Estradiol 0.25-35 mg-mcg tablet Active 1 TAB PO Daily August 04, 2019 12:00amMono-Linyah 0.25-35 MG-MCG Oral for 28 Not-TakinghydrOXYzine hydrochloride 25 mg oral tablet (10 sources)AntihistamineStart: 58-46-5748ives 1 mg by mouth four times daily hydrOXYzine hydrochloride 25 mg Tab mg tab(s), Oral, QID, Refills(s) 0 Start Date: 02/02/21 Status: Ordered Repeat number: 1hyoscyamine sulfate 0.125 mg oral tablet (10 sources)Start: 53-22-0569wbxh 1 tablet by mouth every six hoursLevsin 0.125 mg SL Tab 0.125 mg = 1 tab(s), Oral, q6hr, # 20 tab(s), Refills(s) 1, Pharmacy: [facility], 161, cm, 03/10/21 11:21:00 EDT, Height/Length Dosing, 56, kg, 03/10/21 11:21:00 EDT, Weight Dosing Start Date: 03/10/21 Status: Ordered Quantity: 20.0 Unit: tab(s) Repeat number: 2ibuprofen 600 mg oral tablet (15 sources)Nonsteroidal Anti-inflammatory DrugStart: 01-23-2022 End: 16-75-2717qhso 1 tablet by mouth every six hoursibuprofen 600 mg Tab 600 mg = 1 tab(s), Oral, q6hr, # 40 tab(s), Refills(s) 0, [facility]: [facility], 157, cm, 01/23/22 7:20:00 EST, Height/Length Dosing, 55, kg, 01/23/22 7:20:00 EST, WeightDosing Start Date: 01/23/22 Status: Ordered Quantity: 40.0 Unit: tab(s) Repeat number: 1insulin glargine-yfgn (Semglee-yfgn) 100 UNIT/ML pen (8 sources)Start: 03-68-8126bqxtwbh glargine-yfgn (Semglee-yfgn) 100 UNIT/ML pen Inject 13 Units under the skin at bedtime 09/15/2025 Activeinsulin glargine-yfgn 100 unit/mL (3 mL) insulin pen (16 sources)Start: 03-99-1196ikineil glargine-yfgn 100 unit/mL (3 mL) insulin pen Indications: Essential hypertension affecting in third trimester Prime with 2 units and give 5 units every morning and 23 units subQ at bedtime. 15 mL 3 09/28/2025 ActiveStart: 09-21-2025 End: 98-91-5509otfpxlg glargine-yfgn 100 unit/mL (3 mL) insulin pen Indications: Essential hypertension affecting in third trimester Prime with 2 units and give 5 units every morning and 20 units subQ at bedtime. 15 mL 3 09/21/2025 09/28/2025 DiscontinuedStart: 72-63-2160yjhlqwt glargine-yfgn 100 unit/mL (3 mL) insulin pen Indications: Essential hypertension affecting in third trimester Prime with 2 units and give 5 units every morning and 20 units subQ at bedtime. 15 mL 3 09/21/2025 ActiveStart: 09-17-2025 End: 50-61-2525tvrqdtr glargine-yfgn 100 unit/mL (3 mL) insulin pen Indications: Essential hypertension affecting in third trimester Prime with 2 units and give 5 units every morning and 17 units subQ at bedtime. 15 mL 3 09/17/2025 09/21/2025 DiscontinuedStart: 41-43-7168tyidqry glargine-yfgn 100 unit/mL (3 mL) insulin pen Indications: Essential hypertension affecting in third trimester Prime with 2 units and give 5 units every morning and 17 units subQ at bedtime. 15 mL 3 09/17/2025 ActiveStart: 09-15-2025 End: 43-19-6760drvvrap glargine-yfgn 100 unit/mL (3 mL) insulin pen Indications: Essential hypertension affecting in third trimester Prime with 2 units and give 17 units subQ at bedtime. 15 mL 3 09/15/2025 09/17/2025 Discontinued Start: 89-19-9566tglqdir glargine-yfgn 100 unit/mL (3 mL) insulin pen Indications: Essential hypertension affecting in third trimester Prime with 2 units and give 17 units subQ at bedtime. 15 mL 3 09/15/2025 ActiveStart: 09-10-2025 End: 43-35-0702jpzrqmv glargine-yfgn 100 unit/mL (3 mL) insulin pen Indications: Essential hypertension affecting in third trimester Prime with 2 units and give 13 units subQ at bedtime. 15 mL 3 09/10/2025 09/15/2025 Discontinued Start: 97-70-0186yhlbmsd glargine-yfgn 100 unit/mL (3 mL) insulin pen Indications: Essential hypertension affecting in third trimester Prime with 2 units and give 13 units subQ at bedtime. 15 mL 3 09/10/2025 ActiveStart: 09-04-2025 End: 91-03-0515wmhmjn 2 [IU] by subcutaneous injection once, then inject 10 [IU] by subcutaneous injection at bedtimeinsulin glargine-yfgn 100 unit/mL (3 mL) insulin pen Indications: Diet controlled gestational diabetes mellitus (GDM) in second trimester , Essential hypertension affecting in third trimester Prime with 2 units and give 10 units subQ at bedtime. 15 mL 3 09/04/2025 09/10/2025 DiscontinuedStart: 97-89-0921impqjh 2 [IU] by subcutaneous injection once, then inject 10 [IU] by subcutaneous injection at bedtimeinsulin glargine- yfgn 100 unit/mL (3 mL) insulin pen Indications: Diet controlled gestational diabetes mellitus (GDM) in second trimester , Essential hypertension affecting in third trimester Prime with 2 units and give 10 units subQ at bedtime. 15 mL 3 09/04/2025 Activeisopropyl alcohol 0.7 ml/ml medicated pad (20 sources)Start: 13-90-4918Nexmbac Swabs (Alcohol Prep Pad) 70 % pads Indications: Gestational diabetes mellitus (GDM), antepartum, gestational diabetes method of control unspecified ([facility]) , Elevated glucose tolerance testApply 1 Pad topically Daily Use four times daily to check FSBS. 150 each 3 08/20/2025 Activeiv contrast (will be provided with radiology test) (12 sources)Start: 66-23-3199zg contrast (will be provided with radiology test) [...] 200 mg oral tablet (20 sources)beta-Adrenergic BlockerStart: 79-43-7371zcdp 1 tablet by mouth in the morninglabetalol (Normodyne) 200 MG tablet Indications: Gestational Hypertension Take 1 tablet (200 mg) bymouth in the morning and 1 tablet (200 mg) before bedtime. 60 tablet 3 09/03/2025 ActiveStart: 07-30-2025 End: 04-25-9653vgut 1 tablet by mouth in the morninglabetalol (Normodyne) 100 MG tablet Indications: Hypertension, unspecified type Take 1 tablet (100 mg) by mouth in the morning and 1 tablet (100 mg) before bedtime. 60 tablet 5 07/30/2025 09/03/2025 DiscontinuedStart: 11-28-2022 End: 95-41-3079xeppwneav (Normodyne,Trandate) injection 20 mgStart: 11-28-2022 End: 89-16-1550isrvieetr (Normodyne,Trandate) injection 20 mgStart: 11-28-2022 End: 75-64-8178nsnmhizfj (Normodyne,Trandate) 5 MG/ML injection - Pyxis ADS Override Pulltake 2 tablets by mouth three times dailylabetaloL (NORMODYNE) 100 mg tablet Take 2 tablets (200 mg total) by mouth 3 (three) times a day. Active magnesium oxide 400 mg oral tablet (9 sources)Start: 05-01-2025 End: 59-62-2486adfp 1 tablet by mouth once dailymagnesium oxide (Mag-Ox) 400 MG tablet Indications: headache in first trimester ([facility])Take 1 tablet (400 mg) by mouth Daily 30 tablet 3 05/01/2025 05/31/2025 Activemeloxicam 15 mg oral tablet (15 sources)Nonsteroidal Anti-inflammatory DrugStart: 02-02-2021 End: 68-95-4148frgx 1 tablet by mouth once dailymeloxicam (Mobic) 15 MG tablet Indications: Chronic right shoulder pain , Scapular dyskinesis Take 1 tablet (15 mg) by mouth Daily 30 tablet 3 12/30/2024 05/01/2025 Prxyxgjwbmhn50 hr metoprolol succinate 25 mg extended release oral tablet (20 sources)beta-Adrenergic BlockerStart: 10-15-2024 End: 65-17-8688okqv 1 tablet by mouth once dailymetoprolol succinate XL (Toprol- XL) 25 MG 24 hr tablet Indications: Hypertension, unspecified type Take 1 tablet by mouth daily 90 tablet 1 12/30/2024 ActiveStart: 73-01-2214ieow 1 tablet by mouth once dailymetoprolol succinate XL (Toprol-XL) 25 MG 24 hr tablet Indications: Hypertension, unspecified type (CMS/HCC) Take 1 tablet by mouth daily 90 tablet 1 04/23/2024 ActiveStart: 17-69-9972vxsl 1 tablet by mouth once dailymetoprolol succinate XL (Toprol-XL) 25 MG 24 hr tablet Indications: Hypertension, unspecified type (CMS/HCC) Take 1 tablet by mouth daily 90 tablet 1 10/23/2023 ActiveStart: 02-27-2023 End: 59-59-8933fucbzbmqar succinate ER (TOPROL XL) 25 mg 24 hr tabletnaproxen 500 mg delayed release oral tablet (20 sources)Nonsteroidal Anti-inflammatory DrugStart: 28-07-0697eqxg 1 tablet by mouth twice dailynaproxen 500 mg oral enteric coated tablet 500 mg = 1 tab(s), Oral, BID, # 28 tab(s), Refills(s) 0 Start Date: 11/07/21 Status: Ordered Quantity: 28.0 Unit: tab(s) Repeat number: 1Start: 03-04-2021 End: 08-99-2364usho 1 tablet by mouth twice dailynaproxen 500 [...] 14.0 Unit:tab(s) Repeat number: 1Start: 11-02-2018 End: 87-19-5591ndse 1 tablet by mouth twice daily as [...] (5 sources)Dihydropyridine Calcium Channel BlockerStart: 11-28-2022 End: 87-98-7692BJMKmxhyfr XL (Procardia XL) 30 MG 24 hr tablet Take 1 tablet (30 mg) by mouth daily. Do not crush,chew, or split. Do not start before December 02, 2022. 90 tablet 0 12/02/2022 12/02/2023 Activenorethindrone acetate 5 mg oral tablet (20 sources)Start: 05-17-2023 End: 89-65-4983myzm 2 tablets by mouth once dailynorethindrone (AYGESTIN) 5 mg tablet Take 2 tablets by mouth once daily. 60 tablet 5 01/03/2024 07/01/2024 ActiveStart: 04-11-2023 End: 73-68-1913iaxi 1 tablet by mouth once dailynorethindrone (AYGESTIN) 5 mg tablet Take 1 tablet by mouth once daily. 30 tablet 11 04/11/2023 ActiveStart: 57-02-6616gssn 1 tablet by mouth once dailyNorethindrone Acetate [...] mg/ml rectal foam (2 sources)Start: 07-14-2022 End: 13-95-6289xmkk 15 g rectal route twice dailyProctoFoam 1% Foam apply, Rectal, BID for 7 day(s), 15 gm, Refill(s) 0 Start Date: 07/14/22 Stop Date: 07/21/22 Status: OrderedPrenatal Multivitamins with Vitamin B Complex, Vitamin C, Minerals and L-Methylfolate oral capsule (9 sources)Start: 47-12-3575Ymiryjpw Multivitamins with Vitamin B Complex, Vitamin C, Minerals and L-Methylfolate oral capsule 1 cap(s), Oral, Daily, 30 cap(s), Refill(s) 0 Start Date: 07/14/22 Status: Ordered Quantity: 30.0 Unit: cap(s) Repeat number: 1Start: 54-77-7690Cqatwxwq Multivitamins with Vitamin B Complex, Vitamin C, Minerals and L-Methylfolate oral capsule 1 cap(s), Oral, Daily, 30 cap(s), Refill(s) 0 Start Date: 07/14/22 Status: OrderedPrenatal Vit-Fe Fumarate-FA ( Vitamin) 27-0.8 MG tablet (3 sources) Vit-Fe Fumarate-FA ( Vitamin) 27-0.8 MG tablet Take by mouth. 0 ActivePrenatal Vit-Fe Fumarate-FA ( Vitamins) 28-0.8 MG tablet (20 sources)Start: 05-01-2025 End: 00-32-6358jlmb 1 tablet by mouth once dailyPrenatal Vit-Fe Fumarate-FA ( Vitamins) 28-0.8 MG tablet Indications: , unspecified gestational age ([facility]) , Encounter for supervision of normal first in first trimester([facility]) Take 1 tablet by mouth Daily 30 tablet 11 05/01/2025 05/01/2026 ActiveStart: 05-01-2025 End: 72-00-5093qghu 1 tablet by mouth once dailyPrenatal Vit-Fe Fumarate-FA ( Vitamins) 28-0.8 MG tablet Indications: , unspecified gestational age , Encounter for supervision of normal first in first trimester Take 1 tablet by mouth Daily 30 tablet 11 05/01/2025 05/01/2026 Active SUMAtriptan 100 mg oral tablet (10 sources)Serotonin-1b and Serotonin-1d Receptor AgonistStart: 73-54-6656heyx 1 mg by mouth onceImitrex 100 mg Tab mg tab(s), Oral, Once, Refills(s) 0 Start Date: 02/02/21 Status: Ordered Repeat number: 1Surgical Lubricant Jelly gel (12 sources)Start: 41-72-5636Hnpydqvk Lubricant Jelly gel For MRI Female Pelvis, MRI department to provide. Administer intra-vaginal Surgilube immediately prior the MRI procedure (total amount to patient toleranace). 1 g 0 05/17/2023 Active Comment on above:For MRI Female Pelvis, MRI department to provide. Administer intra-vaginal Surgilube immediately prior the MRI procedure (total amount to patient toleranace).tiZANidine 4 mg oral tablet (3 sources)Central alpha-2 Adrenergic AgonistStart: 66-50-4756ekqj 1 mg by mouth every eight hourstiZANidine 4 mg Tab mg tab(s), Oral, q8hr, Refills(s) 0 Start Date: 02/02/21 Status: OrderedtraMADol hydrochloride 50 mg oral tablet (10 sources)Opioid AgonistStart: 82-15-1448khvn 1 tablet by mouth every four hours as needed for paintraMADol (ULTRAM) 50 mg tablet Indications: Pelvic pain in female Take 1 tablet by mouth every 4 hours as needed for pain. 20 tablet 0 08/30/2023 ActiveStart: 75-86-6543ibih 1 tablet by mouth every six hourstraMADol HCl - 50 MG Oral Tablet TAKE 1 TABLET Every 6 hours Quantity: 20 Refills: 0 Ordered: 18-Aug-2020 Charlene Rodriguez DO Start : 18-Aug-2020 ActiveStart: 03-12-2019 End: 69-45-8399scqi 1 tablet by mouth every four hours as needed for pain Tramadol 50 mg tablet Discontinued 50 MG PO Q4H as needed for pain 30 5 March 12, 2019 12:00am August 04, 2019 8:19amComment on above:Take 1 tablet by mouth every 4 hours as needed for pain.Vitamin D2 2000 intl units oral capsule (9 sources)Start: 01-30-5115lwsh 1 capsule by mouth once dailyVitamin D2 2000 intl units oral capsule Oral, Daily, Refills(s) 0 Start Date: 02/02/21 Status: Ordered Repeat number: 1Start: 25-13-4447Jmracow D2 2000 intl units oral capsule Oral, Daily, Refills(s) 0 Start Date: 02/02/21 Status: Ordered Completed/Discontinued Medications MedicationDrug Class(es)DatesSig (Normalized)Sig (Original)acetaminophen 325 mg oral tablet (4 sources)Start: 11-30-2022 End: 68-25-4024rzdl 1 tablet by mouth every six hours as needed for bpxl510 mg, Oral, Every 6 hours PRN, mild pain (1-3), Starting on Constance 11/30/22 at 0422 Give in addition to any other pain medication ordered at same time for any pain indication. Maximumdose of acetaminophen is 4000 mg from all sources in 24 hours. Alternate ibuprofen and acetaminophen every 3 hours.Start: 11-28-2022 End: 96-30-6944glpffeqirscym (Tylenol) tablet 1,000 mgacetaminophen 300 mg / codeine phosphate 30 mg oral tablet (4 sources)Opioid AgonistStart: 01-19-2025 End: 99-77-1542iozg 1 tablet by mouth every six hours for painacetaminophen- codeine (Tylenol w/ Codeine #3) 300-30 MG tablet Indications: Pain in female genitalia on intercourse , Endometriosis Take 1 tablet by mouth every 6 (six) hours if needed for severe pain for up to 5 days 20 tablet 01/19/2025 01/24/2025 ExpiredStart: 07-22-2024 End: 52-88-9158vrbm 1 tablet by mouth every six hours for painacetaminophen- codeine (Tylenol w/ Codeine #3) 300-30 MG tablet Indications: Dysmenorrhea, unspecified Take 1 tablet by mouth every 6 (six) hours if needed for severe pain for up to 5 days 20 tablet 07/22/2024 07/27/2024 Activeascorbic acid 500 mg oral tablet (5 sources)Vitamin CStart: 10-25-2018 End: 63-72-7814mfzo 2 tablets by mouth in the morningASCORBIC ACID WITH ISAURO HIPS 500 MG tablet Take 2 tablets (1,000 mg total) by mouth in the morning.0 10/25/2018 09/04/2025 Discontinued ()aspirin 325 mg / butalbital 50 mg / caffeine 40 mg oral capsule (11 sources)Platelet Aggregation Inhibitor, Barbiturate, Nonsteroidal Anti- inflammatory Drug, Central Nervous System Stimulant, Methylxanthine End: 00-30-8957izsc 1 capsule by mouth every four hours as needed niyolorytk-krunnrw-ymfsmopu (Fiorinal) 50-325-40 MG capsule Take 1 capsule [...] spray (2 sources)Standardized Chemical AllergenStart: 11-30-2022 End: 97-35-2014Sfummof, As needed, pain, , Starting on Constance 11/30/22 at 0608, Apply to perineal area. Patient is capable and may self administer at bedside.betamethasone 3 mg/ml / betamethasone acetate 3 mg/ml injectable suspension (2 sources)CorticosteroidStart: 11-28-2022 End: 60-19-4080iqfthmqdediag acetate-betamethasone sodium phosphate (Celestone) injection 12 mgcalcium chloride 0.0014 meq/ml / potassium chloride 0.004 meq/ml / sodium chloride 0.103 meq/ml / sodium lactate 0.028 meq/ml injectable solution (2 sources)Start: 11-28-2022 End: 46-58-1885iwfa 125 mL intravenously every qvud395 mL/hr, IntraVENous, Continuous, Starting on Sun11/28/22 at 0100, Pre-Deliverycetirizine hydrochloride 10 mg oral tablet (17 sources)Histamine-1 Receptor AntagonistStart: 06-09-2025 End: 32-01-3230rvmq 1 tablet by mouth once dailycetirizine (ZyrTEC ALLERGY) 10 MG tablet Indications: Allergy, sequela Take 1 tablet (10 mg) by mouth Daily 30 tablet 11 06/09/2025 07/15/2025 DiscontinuedchlordiazePOXIDE hydrochloride 5 mg / clidinium bromide 2.5 mg oral capsule (1 source)Anticholinergic, BenzodiazepineStart: 85-92-0047rffh 1 capsule by mouth every eight hourschlordiazePOXIDE-Clidinium 5-2.5 MG 1 capsule before meals Orally Three times a day for 30 day(s) May, Not-Taking chlorhexidine gluconate 20 mg/ml medicated pad (2 sources)Start: 11-28-2022 End: 17-25-6418nnqck 1 dose topically every six hoursTopical, Every 6 hours, First dose on Sun11/28/22 at 0100, Pre-Delivery Apply to the affected area.&a mp;nbsp; Clean entire abdomen.cholecalciferol 0.125 mg oral capsule (5 sources)Vitamin DStart: 10-25-2018 End: 25-91-1650jhgw 1 capsule by mouth in the morningcholecalciferol, vitamin D3, (VITAMIN D3) 5,000 units capsule Take 1 capsule (5,000 Units total) bymouth in the morning. 0 10/25/2018 09/04/2025 Discontinued ()desogestrel 0.15 mg / ethinyl estradiol 0.03 mg oral tablet (11 sources)Progestin, EstrogenStart: 07-22-2024 End: 99-99-8382kactijnjwux-ethinyl estradiol (Apri) 0.15-30 MG-MCG tablet Indications: Dysmenorrhea, unspecified Take 1 tablet by mouth Daily 21 tablet 12 10/20/2024 01/19/2025 Discontinued (Other)diphenhydrAMINE (BENADryl) injection 25 mg (2 sources)Start: 11-30-2022 End: 84-16-4430imew 25 mg intravenously every six hours as neededdiphenhydrAMINE (BENADryl) injection 25 mgNorethindrone-E.Estradiol-Iron (1 source)EstrogenStart: 10-17-2017 End: 62-15-4836bzsl 1 tablet by mouth once dailyNorethindrone-E.Estradiol-Iron (Lo Loestrin Fe) 1 mg-10 mcg (24)/10 mcg (2) tablet Discontinued 1 TAB PO Daily October 17, 2017 1:00am March 12, 2019 6:15amEthinyl Estradiol / Norethindrone (7 sources)EstrogenStart: 12-01-2018 End: 86-42-4753xhqp 0.05 ug by mouth once in the eveningnorethindrone ac-eth estradiol (MICROGESTIN 1/20) 1-20 mg-mcg per tablet Take 1 tablet by mouth in t he evening. 0 12/01/2018 09/04/2025 Discontinued ()Start: 12-01-2018 take 0.05 ug by mouth once in the eveningnorethindrone ac-eth estradiol (MICROGESTIN 1/20) 1-20 mg-mcg per tablet Take 1 tablet by mouth in the evening. 0 12/01/2018 ActiveStart: 52-54-1523btaq 1 tablet by mouth once dailyDasetta oral tablet 1 tab(s), Oral, Daily, Refill(s) 0, control/menstrual regulation Start Date: 11/23/16 Status: Orderedfamotidine 20 mg oral tablet (2 sources)Histamine-2 Receptor AntagonistStart: 11-30-2022 End: 99-80-3193ytbk 20 mg by mouth twice daily as needed for gastroesophageal reflux aljfoxe54 mg, Oral, 2 times daily PRN, heartburn, Starting on Constance 11/30/22 at 0608, Renal dose per pharmacy for peptic ulcer prophylaxis.ferrous sulfate 325 mg oral tablet (8 sources)Start: 11-30-2022 End: 16-74-0251ltsj 325 mg by mouth twice daily at arhrljkx491 mg, Oral, 2 times daily with meals, First dose on Constance 11/30/22 at 0800, Start if Hgb le ss than 10. End: 91-20-2667shpf 1 tablet by mouth in the morningFerrous Sulfate (IRON PO) Take 1 tablet by mouth in the morning. 09/16/2025 Discontinuedtake 1 tablet by mouth in the morningFerrous Sulfate (IRON PO) Take 1 tablet by mouth in the morning. ActiveFLUoxetine 20 mg oral capsule (17 sources)Serotonin Reuptake InhibitorStart: 14-44-7709wabd 1 capsule by mouth once dailyFLUoxetine HCl - 20 MG Oral Capsule TAKE 1 CAPSULE Daily Quantity: 30 Refills: 11 Ordered: 02-Jun-2021 Kuldip DAY Charlene Start : 02-Jun-2021 Active Start: 11-02-2018 End: 99-26-1601deop 1 capsule by mouth once dailyFluoxetine (Prozac) 20 mg capsule Discontinued 20 MG PO Daily November 02, 2018 1:00am August 04, 2019 8:19amtake 1 capsule by mouth once dailyFLUoxetine (PROZAC) 10 mg capsule Take 10 mg by mouth once daily. 0 ActiveComment on above:Take 10 mg by mouth once daily.fluticasone propionate 0.05 mg/actuat metered dose nasal spray (16 sources)CorticosteroidStart: 06-22-2025 End: 38-93-9042cuxl 1 spray(s) nasal route once dailyfluticasone (Flonase) 50 MCG/ACT nasal spray Indications: Sinusitis, unspecified chronicity, unspecified location Administer 1 spray into each nostril Daily Shake gently. Before first use, prime pump. After use, clean tip and replace cap. 16 g 12 06/22/2025 07/15/2025 Discontinued End: 02-70-0816frgq 1 spray(s) nasal route in the morningfluticasone (Flonase) 50 MCG/ACT nasal spray Administer 1 spray into affected nostril(s) in the morn ing. 09/16/2025 Discontinued End: 17-12-5757loxk 1 spray(s) nasal route in the morningfluticasone propionate (FLONASE) 50 mcg/actuation nasal spray Administer 1 spray into each nostril in the morning. 09/04/2025 Discontinued ()lanolin 1000 mg/ml topical cream (2 sources)Start: 11-30-2022 End: 51-11-8719Rxkslcq, As needed, dry skin, nipple discomfort, Starting on Sun11/30/22 at 0608, Apply to affected area.500 ml magnesium sulfate 40 mg/ml injection (4 sources)Start: 11-28-2022 End: 47-37-9763lxsaqbjqe sulfate 20 GM/500ML infusionStart: 11-28-2022 End: 03-04-5428nzsachgbh sulfate 20 GM/500ML infusion - Pyxis ADS Override Pull metoclopramide 10 mg oral tablet (2 sources)Dopamine-2 Receptor AntagonistStart: 13-27-2668gcyy 1 tablet by mouth every eight hoursReglan 10 MG 1 tablet before meals Orally tid for 30 day(s) March, Not-TakingmiSOPROStol 0.2 mg oral tablet (2 sources)Prostaglandin E1 AnalogStart: 11-30-2022 End: 69-89-5489bxJMBXRImce (Cytotec) tablet 1,000 mcgStart: 11-30-2022 End: 21-80-1435rcTFQHTNrty (Cytotec) tablet 1,000 mcgmiSOPROStol (Cytotec) split tablet 25 mcg (2 sources)Start: 11-28-2022 End: 68-04-6884eerd 1 tablet vaginal route every four hoursmiSOPROStol (Cytotec) split tablet 25 mcg1 ml morphine sulfate 4 mg/ml injection (4 sources)Opioid AgonistStart: 11-28-2022 End: 76-64-6497ulcpcequ sulfate (PF) injection 4 mgnitrofurantoin, macrocrystals 25 mg / nitrofurantoin, monohydrate 75 mg oral capsule (6 sources)Nitrofuran AntibacterialStart: 41-33-1980Ypggazemqtfwnn Monohyd Macro 100 MG Oral Capsule TAKE 1 CAPSULE Other Please take one capsule aftersexual intercourse to prevent UTI Quantity: 30 Refills: 11 Ordered: 01-Apr-2021 Teri Chau MD Start : 01-Apr-2021 Active2 ml ondansetron 2 mg/ml injection (12 sources)Serotonin-3 Receptor AntagonistStart: 11-29-2022 End: 02-45-0914lewu 4 mg intravenously every six hours as needed for nausea and vomitingondansetron (Zofran) injection 4 mgStart: 15-00-6810scsf 1 tablet by mouth every six hours as needed for nauseaZofran 4 mg Tab 1 tab(s), Oral, q6hr, PRN Nausea, # 8, Refills(s) 0 Start Date: 07/14/22 Status: Ordered Quantity: 8.0 Unit: Repeat number: 1Start: 11-95-7308chus 1 tablet by mouth three times daily Zofran 4 MG 1 tablet Orally THREE TIMES A DAY for 30 day(s) May, Not-Takingondansetron ODT (Zofran-ODT) disintegrating tablet 4 mg (2 sources)Start: 11-30-2022 End: 65-45-9653isag 1 tablet by mouth every eight hours [...] for 1 hour. Then discontinue.Start: 11-29-2022 End: 27-81-0578nmrzkfnk (Pitocin) 30 units in 500 mL infusionStart: 11-29-2022 End: 03-73-0089nhpfrqlz (Pitocin) 30 units in 500 mL infusionphenazopyridine hydrochloride 200 mg oral tablet (10 sources)Start: 45-41-4183tpvk 1 tablet by mouth three times dailyPyridium 200 mg Tab 200 mg = 1 tab(s), Oral, TID, Take one tab by mouth three times a day for threedays, # 9 tab(s), Refills(s) 0, Pharmacy: [facility] 858, 157, cm, 03/04/21 7:22:00 EDT, Height/Length Dosing, 52, kg, 03/04/21 7:22:00 EDT, Weight Dosing Start Date: 03/04/21 Status: Ordered Quantity: 9.0 Unit: tab(s) Repeat number: 1predniSONE 10 mg oral tablet (3 sources)Start: 09-10-2023 End: 29-30-3237qhjc 2 tablets by mouth twice daily, then [...] 09/10/2023 01/10/2024 Discontinued (Therapy completed)Start: 03-12-2019 End: 57-63-2438pjhl 3 tablets by mouth once daily at mealtimePrednisone 20 mg tablet Discontinued 60 MG PO Daily 9 March 12, 2019 12:00am August 04, 2019 8:18am administer with food or milkpromethazine hydrochloride 12.5 mg oral tablet (13 sources)PhenothiazineStart: 05-25-2025 End: 43-61-0566ikqx 1 tablet by mouth every six hours [...] nausea. 30 tablet 2 508/ Discontinued End: 04-23-4485zxcj 12.5 mg rectal route every six hours as needed for nausea and vomitingpromethazine (PHENERGAN) 12.5 mg suppository Insert 1 suppository (12.5 mg total) into the rectum every 6 (six) hours as needed for nausea or vomiting. 09/04/2025 Discontinued ()rizatriptan 5 mg disintegrating oral tablet (5 sources)Serotonin-1b and Serotonin-1d Receptor AgonistStart: 10-24-2018 End: 65-66-6138ziifxwplhgc HIGH SCHOOL DIRECTOR ([employer] S[employer]OL DIRECTOR) 5 mg disintegrating tablet Dissolve 1 tablet (5 mg total) on tongue asneeded. 0 10/24/2018 09/04/2025 Discontinued ()5 ml sodium chloride 9 mg/ml injection (2 sources)Start: 11-28-2022 End: mL, IntraVENous, Every 12 hours scheduled (2 times per day), First dose on Sun11/28/22 at 0900, Pre-Deliveryvitamin b12 1 mg extended release oral tablet (5 sources)Vitamin A57Xqvys: 10-25-2018 End: 53-60-2606gqpk 1 tablet by mouth in the morningcyanocobalamin, vitamin B- 12, (VITAMIN B-12) 1,000 mcg tablet extended release Take 1 tablet (1 mg total) by mouth in the morning. 0 10/25/2018 09/04/2025 Discontinued ()witch yesi 500 mg/ml medicated pad (2 sources)Start: 11-30-2022 End: 84-31-7439Rqeqhxu, As needed, hemorrhoids, For perineal pain or discomfort, Starting on Sun11/30/22 at 0608, Apply to perineal area. Patient is capable and may self administer at bedside. Problems Active Problems Problem ClassificationProblemDateDocumented DateEpisodic/ChronicAllergic reactions (1 source)Allergic reaction; Translations: [Allergy, unspecified, initial encounter]53-40-1020DywdobtjIamlphl on above:Problem List clean-up per request of Phys. EHR CmteAnxiety disorders (20 sources)Anxiety; Translations: [Anxiety state, unspecified]Onset: 10-08-2020 16-92-3989FeczgxcOgopszn on above:Problem List clean-up per request of Phys. EHR CmteCardiac dysrhythmias (20 sources)Paroxysmal tachycardia; Translations: [Paroxysmal tachycardia, unspecified]Onset: 569545-10-0009CgxxnbbXtcfocfvwwizu of surgical procedures or medical care (1 source)Postoperative retention of urine; Translations: [Other postprocedural complications and disorders of genitourinary system]61-84-6819XandgpvzJruypxn on above:Problem List clean-up per request of Phys. EHR CmteDiabetes mellitus without complication (2 sources)Abnormal glucose tolerance test; Translations: [Other abnormal glucose]56-33-9256LfmwkuqiNinvrzhc or abnormal glucose tolerance complicating ; childbirth; or the puerperium (20 sources)Gestational diabetes mellitus; Translations: [Gestational diabetes mellitus in , diet controlled]Onset: 522876-05-4399Ckusmzqp Endometriosis (20 sources)Endometriosis (clinical); Translations: [Endometriosis, site unspecified]Onset: 89-20-7103MbuxdhgUoxvihiug hypertension (20 sources)Hypertensive disorder; Translations: [Essential (primary) hypertension]Onset: 604626-24-0328CtdhjwkIeatvkeqcalfj symptoms and ill- defined conditions (20 sources)Microscopic hematuria; Translations: [Nocturia]95-66-1139Fcfznxci Comment on above:Problem List clean-up per request of Phys. EHR CmteHeadache; including migraine (20 sources)Migraine; Translations: [Migraine, unspecified, not intractable, without status migrainosus]Onset: 200318-85-8340KqfpkgrKrrrijg on above: Problem List clean-up per request of Phys. EHR CmteHeadache; including migraine (14 sources)Headache; Translations: [Headache, unspecified]Onset: 01-31-2023 23-17-9980WnhevuetUzmqypvlyil (1 source)Hemorrhoids; Translations: [Unspecified hemorrhoids]Onset: 07-14-2022 EpisodicHypertension complicating ; childbirth and the puerperium (20 sources)Hypertension complicating ; Translations: [Unspecified maternal hypertension, unspecified trimester]Onset: hronic Hypertension complicating ; childbirth and the puerperium (16 sources)Severe pre-eclampsia complicating childbirth; Translations: [Severe pre-eclampsia, third trimester]Onset: 87-02-6943BmlpuactRnkhs disorders and dislocations; trauma-related (20 sources)Disorder of left patellofemoral joint; Translations: [Patellofemoral disorders, left knee]Onset: 501849-65-7630InwjeyzSmfrg disorders and dislocations; trauma-related (20 sources)Disorder of right patellofemoral joint; Translations: [Patellofemoral disorders, right knee]Onset: hronic Menstrual disorders (20 sources)Dysmenorrhea; Translations: [Dysmenorrhea, unspecified]Onset: 241680-74-1825GhpjomsNxwqjw and vomiting (1 source)Nausea and vomiting; Translations: [Nausea with vomiting, unspecified] EpisodicNonspecific chest pain (2 sources)Chest pain; Translations: [Chest pain, unspecified]61-67-2812Uweajour Comment on above:Problem List clean-up per request of Phys. MIKAYLA CmteNutritional deficiencies (20 sources)Vitamin D deficiency; Translations: [Vitamin D deficiency, unspecified]Onset: 862536-75-2202IjqamlpUnxhf acquired deformities (20 sources)Scoliosis deformity of spine; Translations: [Scoliosis, unspecified] Onset: 864090-82-4570JtrdaabVjyod bone disease and musculoskeletal deformities (10 sources)Disorder of ibbe40-87-8987LrcqzivnJznkfqo on above:right shoulder right shoulderOther circulatory disease (1 source)Elevated blood-pressure reading without diagnosis of hypertension; Translations: [Elevated blood-pressure reading, without diagnosis of hypertension]Onset: 63-58-9549CakgbvcaZdyzm complications of ; puerperium affecting management of mother (1 source)Delayed AND/OR secondary hemorrhage; Translations: [Delayed and secondary hemorrhage]Onset: 74-19-4875VwkyuqtiCcjdl complications of (1 source)Finding related to ; Translations: [Other specified related conditions, unspecified trimester]Onset: 59-79-8565SdosqnheQfvbw complications of (1 source)Supervision of with other poor reproductive or obstetric history, unspecified trimester; Translations: [Supervision of with other poor reproductive or obstetric history, unspecified trimester]Onset: 03-87-8792VwomwbmoFggxl connective tissue disease (1 source)Diastasis recti; Translations: [Separation of muscle (nontraumatic), other site]EpisodicOther female genital disorders (10 sources)Abnormal uterine -00-3842JoufrehHspri female genital disorders (1 source)Dyspareunia; Translations: [Other specified dyspareunia]ChronicOther female genital disorders (20 sources)Pain in female genitalia on intercourse; Translations: [Unspecified dyspareunia]Onset: 597450-96-5778KjdpevnCpamn female genital disorders (1 source)Unspecified dyspareunia; Translations: [Unspecified dyspareunia]Onset: 72-03-4412MntpujlZwjxl female genital disorders (2 sources)Pelvic floor dysfunction; Translations: [Other specified conditions associated with female genital organs and menstrual cycle]EpisodicOther gastrointestinal disorders (18 sources)Constipation; Translations: [Constipation, unspecified]Onset: 739733-48-6018JbdvvceiYpywcnk on above:Problem List clean-up per request of Phys. EHR CmteOther gastrointestinal disorders (1 source)Constipation, unspecified; Translations: [Constipation, unspecified] Onset: 05-05-4885MlnewyquMgnpp hereditary and degenerative nervous system conditions (20 sources)Finding of scapular structure; Translations: [Other specified extrapyramidal and movement disorders]Onset: 278380-47-2669QwxctvbVfcxv nervous system disorders (9 sources)Chronic pain; Translations: [Other chronic pain]Onset: 03-29-2023 17-95-6161MmoabeuXeujo nervous system disorders (1 source)Other chronic pain; Translations: [Chronic pelvic pain in female] Onset: 82-70-8302JrdcqpcOtxxr nervous system disorders (1 source)Paresthesia of left upper limb; Translations: [Paresthesia of skin] 93-97-0822DrolxdoxXpncjsl on above:Problem List clean-up per request of Phys. EHR CmteOther nervous system disorders (1 source)Tremor; Translations: [Tremor, unspecified]54-52-9492AlrvfmnlPexzlnb on above:Problem List clean-up per request of Phys. EHR CmteOther nutritional; endocrine; and metabolic disorders (20 sources)Body mass index 30+ - obesity; Translations: [Obesity, unspecified] Onset: 723037-73-2593XqofbyfBhadq and delivery including normal (18 sources); Translations: [Encounter for supervision of normal , unspecified, unspecified trimester]85-52-9391YzvzqtwaOrnmf screening for suspected conditions (not mental disorders or infectious disease) (8 sources)Elevated liver enzymes level; Translations: [Other specified abnormal findings of blood chemistry]Onset: 04-18-2022 Resolved: 97-64-8732TzaaidihVcjrn upper respiratory disease (20 sources)Allergic rhinitis due to pollen; Translations: [Allergic rhinitis due to pollen]Onset: 514237-07-6428GhnifngSozqm upper respiratory infections (2 sources)Sinusitis; Translations: [Chronic sinusitis, unspecified]06-22-2025 ChronicResidual codes; unclassified (2 sources)Contraception ; Translations: [Other specified health status] 61-72-4394KbsswrikDocrlcbn codes; unclassified (2 sources)Gestation period, 13 weeks; Translations: [13 weeks gestation of ]33-15-0652RfypilwdArehzdjv codes; unclassified (2 sources)Gestation period, 17 weeks; Translations: [17 weeks gestation of ]63-82-6671CxlakyprEhuvpzic codes; unclassified (2 sources)Gestation period, 20 weeks; Translations: [20 weeks gestation of ]18-13-1729DfxgzjgqEkehwgrh codes; unclassified (2 sources)Gestation period, 24 weeks; Translations: [24 weeks gestation of ]92-05-8121FyzvzptsCajlynql codes; unclassified (2 sources)Gestation period, 26 weeks; Translations: [26 weeks gestation of ]09-62-5150MwelikqoOhpsstmd codes; unclassified (2 sources)Gestation period, 27 weeks; Translations: [27 weeks gestation of ]00-83-7862AyrjwbxhEolxtfpx codes; unclassified (1 source)Gestation period, 28 weeks; Translations: [28 weeks gestation of ]62-89-4090HzvvybnyLvpmerew codes; unclassified (1 source)28 weeks gestation of ; Translations: [28 weeks gestation of ]Onset: 72-24-8321DkfwyxhgWtxwsynu codes; unclassified (2 sources)Gestation period, 29 weeks; Translations: [29 weeks gestation of ]84-06-9484VqqdzzihEtbfromn codes; unclassified (2 sources)Gestation period, 31 weeks; Translations: [31 weeks gestation of ]93-35-1501WfbbxzhmRqjctlpbhhp; intervertebral disc disorders; other back problems (20 sources)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; Translations: [Other cervical disc displacement, unspecified cervical region] Onset: 660651-04-9646MtzhkwbQsdqzzdkvqfq (1 source)MFM consultOnset: 35-68-0581Tiskbnzepepl (1 source)Gestational DiabetesOnset: 78-54-3576Lsddhnd tract infections (20 sources)Recurrent urinary tract infection; Translations: [Urinary tract infection, site not specified]Onset: 029090-78-7011Yaxihywg Past or Other Problems Problem ClassificationProblemDateDocumented DateEpisodic/ChronicAbdominal pain (20 sources)Epigastric pain; Translations: [Epigastric pain]Onset: 07-14-2022 EpisodicAcquired foot deformities (20 sources)Acquired equinus deformity of foot; Translations: [Other acquired deformities of unspecified foot]Onset: 607359-82-8634RcaowxguCsepova dysrhythmias (20 sources)Tachycardia; Translations: [Tachycardia, unspecified]Onset: 532901-46-0364BibfqvelVmszjbuzpnq deficiencies (20 sources)Cobalamin deficiency; Translations: [Deficiency of other specified B group vitamins]Onset: 890470-94-6582VehpnxhySrlip connective tissue disease (20 sources)Posterior calcaneal exostosis; Translations: [Calcaneal spur, unspecified foot]Onset: 637307-28-1480JdoenqaoUcpyh disorders of stomach and duodenum (20 sources)Gastroparesis syndrome; Translations: [Gastroparesis]Onset: 673794-87-6964WctlyrkkAbkzs female genital disorders (1 source)Other specified conditions associated with female genital organs and menstrual cycle; Translations:[High-tone pelvic floor dysfunction]Onset: 05-21-8460ZkbaakugJezvg female genital disorders (20 sources)Chronic pelvic pain of female; Translations: [Chronic pelvic pain in female]Onset: 063186-08-0392NmjabwrlCyioy gastrointestinal disorders (20 sources)Swallowing painful; Translations: [Dysphagia, unspecified]Onset: 513873-99-1449HpjztfmiGrxsf gastrointestinal disorders (20 sources)Diarrhea; Translations: [Diarrhea, unspecified]Onset: 03-24-2025 84-66-5704EmfubzfzRuiuc non-traumatic joint disorders (20 sources)Chronic pain of right upper limb; Translations: [Pain in right shoulder]Onset: 307825-77-5482GadfjwvjLbegq nutritional; endocrine; and metabolic disorders (16 sources)Loss of appetite; Translations: [Anorexia]Onset: 05-27-2020 13-48-3280VqpszevxTagiggx (15 sources)Vasovagal syncope; Translations: [Syncope and collapse]Onset: 380856-99-4214RgdyaebaFkzrzslnautl (9 sources)PregnancyOnset: 07-14-2022 Resolved: 644612-49-3678SKFDGYJ: Highlighted row has been ruled out! Unclassified (1 source)No known active olklvjxi84-44-7487 Results Test NameValueInterpretationReference RangeFacilityUS OB BPP W NON-STRESS on 40-37-5596Ybf[place] [address] Ultrasound Report Signed Patient: JUHI GAMA MR#: [id number] : 1995 Acct:[id number] Age/Sex: 30 / F ADM Date: 10/03/25 Loc: US Attending Dr: Steph Keane Ordering Physician: Steph Keane Date of Service: 10/03/25 Procedure(s): US OB BPP w non-stress Accession Number(s): [id number] cc: Steph Keane; KAFTAN,G KENNETH The [address] [address] Patient Name: JUHI GAMA MRN: [facility]:[id number] date: 1995 Sex: F Assigned Patient Location: US Current Patient Location: Accession/Order Number: [id number] Exam Date: 10/03/2025 10:53 Report Date: 10/03/2025 [...] Faria M.D. 10/03/2025 11:36 AM Dictation Location: [place] [address] Electronically authenticated by: [id number] Y Date: 10/03/2025 11:36 Dictated By: Will Faria M.D. Signed By: 10/03/25 1138 DD/ 1136 TD/TT: Research Development Director:TBHRadiology, Radiologist, MD - 10/03/2025 [place] [address] Ultrasound Report Signed Patient: JUHI GAMA MR#: [id number] : 1995 Acct:[id number] Age/Sex: 30 / F ADM Date: 10/03/25 Loc: US Attending Dr: Steph Keane Ordering Physician: Steph Keane Date of Service: 10/03/25 Procedure(s): US OB BPP w non-stress Accession Number(s): [id number] cc: Steph Keane; Yomaira BELTRAN [place] [id number] Patient Name: JUHI GAMA MRN: [id number] date: 1995 Sex: F Assigned Patient Location: US Current Patient Location: Accession/Order Number: [id number] Exam Date: 10/03/2025 10:53 Report Date: 10/03/2025 [...] Faria M.D. 10/03/2025 11:36 AM Dictation Location: [place] [address] Electronically authenticated by: [id number] Y Date: 10/03/2025 11:36 Dictated By: Will Faria M.D. Signed By: 10/03/25 1138 DD/ 1136 TD/TT: Research Development Director: [facility] HealthcareRadiology Study observation (narrative)N[facility] HealthcareUS OB BPP W NON-STRESSOrdered By: Radiologist Radiology on 25-06-7079[facility] Work Phone: Urinalysis macro (dipstick) panel (U)on 09-30-2025 Bilirubin, UANegativeNegative - 4(70) +++ mg/dLNOMS HealthcareBlood, UANegative Negative - 50 Teodoro/mcLNOMS HealthcareClarity, UAClearNOMS HealthcareColor, UA YellowNOIL HealthcareGlucose, UANegativeNegative - 2000(110) ++++ mg/dLNOIL HealthcareInterpretation and review of laboratory resultsNormalNOChildren[facility] Ketones, UANegativeNegative - 160(16) ++++ mg/dLNOIL HealthcareLeukocytes, UA NegativeNegative - 500+++ Robinson/mcLNOIL HealthcareNitrite, UANegativeNegative - PositiveNOIL HealthcarepH, UA6.05 - 9NOIL HealthcareProtein, UANegativeNegative - 2000(20) ++++ mg/dLNOIL HealthcareSpec Grav, UA1.0101 - 1.03NOIL Healthcare Urobilinogen, UA1.00.2 - 12 mg/dLNOHawthorn [facility] HealthcareUS OB BPP W NON-STRESSon 68-55-5737JfyMiss[place] [address] Ultrasound Report Signed Patient: JUHI GAMA MR#: [id number] : 1995 Acct:[id number] Age/Sex: 30 / F ADM Date: 09/26/25 Loc: US Attending Dr: Steph Keane Ordering Physician: Steph Keane Date of Service: 09/26/25 Procedure(s): US OB BPP w non-stress Accession Number(s): [id number] cc: Steph Keane; Yomaira BELTRAN [place] [id number] Patient Name: JUHI GAMA MRN: [id number] date: 1995 Sex: F Assigned Patient Location: Current Patient Location: Accession/Order Number: [id number] Exam Date: 09/26/2025 11:50 Report Date: 09/26/2025 14:50 At the request of: STEPH KEANE Procedure: US OB BPP w non-stress Ultrasound biophysical profile INDICATION: -induced hypertension COMPARISON: 09/19/2025 FINDINGS IMPRESSION: Cephalic position. 8 out of 8 score biophysical profile. LEONEL 11.6 cm. heart 129 bpm Impression dictated by: Chu Amaya M.D. 09/26/2025 2:50 PM Dictation Location: [facility]-29 Electronically authenticated by: [id number] Y Date: 09/26/2025 14:50 Dictated By: Chu Amaya M.D. Signed By: 09/26/25 1452 DD/ 49 TD/TT: Research Development Director:TBHRadiology, Radiologist, - 09/26/2025 [place] [address] Ultrasound Report Signed Patient: JUHI GAMA MR#: [id number] : 1995 Acct:[id number] Age/Sex: 30 / F ADM Date: 09/26/25 Loc: US Attending Dr: Steph Keane Ordering Physician: Steph Keane Date of Service: 09/26/25 Procedure(s): US OB BPP w non-stress Accession Number(s): [id number] cc: Le Keane G ROBERT [place] [address] Patient Name: JUHI GAMA MRN: [facility]:[id number] date: 1995 Sex: F Assigned Patient Location: Current Patient Location: Accession/Order Number: [id number] Exam Date: 09/26/2025 11:50 Report Date: 09/26/2025 14:50 At the request of: STEPH KEANE Procedure: US OB BPP w non-stress Ultrasound biophysical profile INDICATION: -induced hypertension COMPARISON: 09/19/2025 FINDINGS IMPRESSION: Cephalic position. 8 out of 8 score biophysical profile. LEONEL 11.6 cm. heart 129 bpm Impression dictated by: Chu Amaya M.D. 09/26/2025 2:50 PM Dictation Location: [facility]29 Electronically authenticated by: [id number] Y Date: 09/26/2025 14:50 Dictated By: Chu Amaya M.D. Signed By: 09/26/25 145 DD/ 145 TD/TT: Research Development Director: [facility] HealthcareRadiology Study observation (narrative)NOMS HealthcareUS OB BPP W NON-STRESSOrdered By: Radiologist Radiology on 77-07-3409UV[facility] Work Phone: US OB BPP W NON-STRESSon 68-22-7945[place]nw[place], [place] [address] Ultrasound Report Signed Patient: JUHI GAMA MR#: [id number] : 1995 Acct:[id number] Age/Sex: 30 / F ADM Date: 09/19/25 Loc: US Attending Dr: Steph Keane Ordering Physician: Steph Keane Date of Service: 09/19/25 Procedure(s): US OB BPP w non-stress Accession Number(s): [id number] cc: Steph Keane; Yomaira BELTRAN [place] [id number] Patient Name: JUHI GAMA MRN: [facility]:[id number] date: 1995 Sex: F Assigned Patient Location[facility] Current Patient Location: Accession/Order Number: [id number] Exam Date: 09/19/2025 10:06 Report Date: 09/19/2025 [...] Morillo M.D. 09/19/2025 12:17 PM Dictation Location: [employer] Electronically authenticated by: [id number] Y Date: 09/19/2025 12:17 Dictated By: Jp Morillo D.O. Signed By: 09/19/25 1219 DD/ 16 TD/TT: Research Development Director:SATNAMadiolRandell malagon, - 09/19/2025 [place] [id number] Ultrasound Report Signed Patient: JUHI GAMA MR#: [id number] : 1995 Acct:[id number] Age/Sex: 30 / F ADM Date: 09/19/25 Loc: US Attending Dr: Steph Keane Ordering Physician: Steph Keane Date of Service: 09/19/25 Procedure(s): US OB BPP w non-stress Accession Number(s): [id number] cc: Steph Keane; Yomaira BELTRAN [place] [phone] Patient Name: JUHI GAMA MRN: [facility]:[id number] date: 1995 Sex: F Assigned Patient Location[facility] Current Patient Location: Accession/Order Number: [id number] Exam Date: 09/19/2025 10:06 Report Date: 09/19/2025 [...] Morillo M.D. 09/19/2025 12:17 PM Dictation Location: [employer] Electronically authenticated by: [id number] Y Date: 09/19/2025 12:17 Dictated By: Jp Morillo D.O. Signed By: 09/19/25 1219 DD/ 16 TD/TT: Research Development Director: LANETTE HealthcareRadiology Study observation (narrative)NOMS HealthcareUS OB BPP W NON-STRESSOrdered By: Radiologist Radiology on 57-18-6068CKOEHermann Area District Hospital Work Phone: Urinalysis macro (dipstick) panel (U)on 09-16-2025 Bilirubin, UANegativeNegative - 4(70) +++ mg/dLHermann Area District HospitalBlood, UANegative Negative - 50 Teodoro/mcLHermann Area District HospitalClarity, UAClearNOIL HealthcareColor, UA YellowNOChildren's Mercy NorthlandGlucose, UANegativeNegative - 2000(110) ++++ mg/dLHermann Area District HospitalInterpretation and review of laboratory resultsNormalH[facility] Area District Hospital Ketones, UANegativeNegative - 160(16) ++++ mg/dLHermann Area District HospitalLeukocytes, UA NegativeNegative - 500+++ Robinson/[facility] HospitalNitrite, UANegativeNegative - PositiveCASTLEVIEW HOSPITAL HealthcarepH, UA6.05 - 9NOIL HealthcareProtein, UANegativeNegative - 2000(20) ++++ mg/dLHermann Area District HospitalSpec Grav, UA1.0101 - 1.03[facility] Urobilinogen, UA1.00.2 - 12 mg/dLSaint Luke's Hospital HealthcareALL BUNon 27-70-0435Sede nitrogen [Mass/Vol]8 mg/dL7.0 - 18.0 mg/dLRanken Jordan [facility] URIC ACIDon 56-34-6340Dkdop [Mass/Vol]3.5 mg/dL2.6 - 6.0 mg/dLHermann Area District HospitalCC ALT on 35-79-4480VYP [Catalytic activity/Vol]40 U/L14 - 59 U/[facility]–SmithvilleCCF AST on 02-03-3623BAW [Catalytic activity/Vol]24 U/L15 - 37 U/[facility] Hospital–SmithvilleNo Panel Informationon 00-94-0301Neadfvjyaqqfsv and review of laboratory results AbnormalNOChildren's Mercy NorthlandCLINISYNCNCitizens Memorial HealthcareTB CREATININEon 09-03-2025 Creatinine [Mass/Vol]0.42 mg/dLLow0.55 - 1.02 mg/dLHermann Area District HospitalGFR/1.73 sq M.predicted CKD-EPI (S/P/Bld) [Vol rate/Area]>60>=60 mL/min/1.73m 2NCitizens Memorial HealthcareTB EGFR-NON AF PALESTINIAN>60>=60 mL/min/1.73m 2NOMS HealthcareTB URINE T PROTEIN CREAT RATIOon 03-15-1621KJPGLPVMLI URINE RANDOM<13.46Dra90.00 - 300.00 mg/dLNOIL HealthcareTOTAL PROTEIN URINE RANDOM<6.0NINF - 11.9 mg/dLCASTLEVIEW HOSPITAL HealthcareUrinalysis macro (dipstick) panel (U)on 51-50-5706Yjscqijbn, UA NegativeNegative - 4(70) +++ mg/dLCASTLEVIEW HOSPITAL HealthcareBlood, UANegativeNegative - 50 Teodoro/mcLCASTLEVIEW HOSPITAL HealthcareClarity, UAClearNOIL HealthcareColor, UAYellowNOIL HealthcareGlucose, UANegativeNegative - 2000(110) ++++ mg/dLCASTLEVIEW HOSPITAL Healthcare Interpretation and review of laboratory resultsNormalCASTLEVIEW HOSPITAL HealthcareKetones, UA NegativeNegative - 160(16) ++++ mg/dLCASTLEVIEW HOSPITAL HealthcareLeukocytes, UANegative Negative - 500+++ [facility] HospitalNitrite, UANegativeNegative - Positive NOM HealthcarepH, UA6.55 - 9NOIL HealthcareProtein, UANegativeNegative - 2000(20) ++++ mg/dLCASTLEVIEW HOSPITAL HealthcareSpec Grav, UA1.0051 - 1.03NOIL Healthcare Urobilinogen, UA2.00.2 - 12 mg/dLFrye Regional Medical Center Alexander CampusTB TOTAL PROTEIN 24 HOUR URINEon 41-63-3091Umrffsbxoctmkv and review of laboratory results AbnormalNOIL HealthcareProtein (U) [Mass/Vol]22.6 mg/dLHighNINF - 11.9 mg/dLHermann Area District HospitalTB TOTAL PROTEIN 24 HOUR HYKTE539.6NINFNOChildren's Mercy NorthlandTOTAL VOLUME 24 HOUR OZPNW259hS/24hrNOIL HealthcareCLINISYNCNNORMAN REGIONAL HEALTHPLEX – NORMAN HealthcareALL CBC WITH AUTO DIFFon 97-81-4892YLSRSOBET ABSOLUTE AUTO0.1NOMS HealthcareBasophils/100 WBC (Bld)0.5 %0.2 - 2.0 %NOMS HealthcareEosinophils/100 WBC (Bld)1.4 %0.9 - 7.0 % [facility] HealthcareErythrocyte distribution width (RBC) [Ratio]13 %11.0 - 15.0 %[facility] HealthcareHematocrit (Bld) [Volume fraction]34.4 %Low36.0 - 48.0 %[facility] HospitalHemoglobin (Bld) [Mass/Vol]11.3 g/dLLow12.0 - 16.0 g/dLHermann Area District Hospital IMMATURE GRANULOCYTES ABS AUTO0.59HighNOIL HealthcareImmature granulocytes/100 WBC (Bld)4.4 %High0.0 - 0.5 %[facility] HospitalInterpretation and review of laboratory resultsAbnormalNOIL HealthcareLYMPHOCYTES ABSOLUTE AUTO2.4NOIL HealthcareLymphocytes/100 WBC (Bld)17.8 %Low20.5 - 60.0 %[facility] CareH (RBC) [Entitic mass]29.4 pg26.7 - 34.0 pgNOResearch Medical Center-Brookside CampusHC (RBC) [Mass/Vol] 32.8 g/dL29.9 - 35.2 g/dLHermann Area District HospitalMCV (RBC) [Entitic vol]89.4 fL81.0 - 99.0 fLHermann Area District HospitalMONOCYTES ABSOLUTE AUTO1.1HighNOIL HealthcareMonocytes/100 WBC (Bld)8.1 %1.7 - 12.0 %[facility] HospitalNEUTROPHILS ABSOLUTE PTDA6PahbBEPB HealthcareNeutrophils/100 WBC (Bld)67.8 %43.0 - 75.0 %[facility] HospitalPlatelet mean volume (Bld) [Entitic vol]9.6 fL9.5 - 13.5 fLHermann Area District HospitalTBH EO #0.2NOMS [facility] HospitalTB WCX533UZYI [facility] RBC3.85LowNOMS [facility] WBC13.3High [facility] HospitalCLINISYNAnMed Health Medical CenterTB URINE T PROTEIN CREAT RATIOon 10-54-2791HFSOYFXSRE URINE RANDOM<13.59Otn02.00 - 300.00 mg/dLHermann Area District Hospital Interpretation and review of laboratory resultsAbnormalHermann Area District HospitalTOTAL PROTEIN URINE RANDOM<6.0NINF - 11.9 mg/dLHermann Area District HospitalCLINISYNAnMed Health Medical Center US OB BPP W NON-STRESSon 44-96-4437[address] [address] Ultrasound Report Signed Patient: JUHI GAMA MR#: [id number] : 1995 Acct:[id number] Age/Sex: 30 / F ADM Date: Loc: [facility] 250-[address]: KUNAL HYATT M.D. Ordering Physician: Steph Keane Date of Service: 08/27/25 Procedure(s): US OB BPP w non-stress Accession Number(s): [id number] cc: Steph Keane; Yomaira BELTRAN [place] [address] Patient Name: JUHI GAMA MRN: [facility]:[id number] date: 1995 Sex: F Assigned Patient Location: LAB Current Patient Location: LAB Accession/Order Number: [id number] Exam Date: 08/27/2025 17:37 Report Date: 08/27/2025 [...] Morillo M.D. 08/27/2025 6:02 PM Dictation Location: [place] [address] Electronically authenticated by: [id number] Y Date: 08/27/2025 18:02 Dictated By: Jp Morillo D.O. Signed By: 08/27/251804 DD/ 01 TD/TT: Research Development Director:SATNAMadiology, Radiologist, MD - 08/27/2025 [place] [address] Ultrasound Report Signed Patient: JUHI GAMA MR#: [id number] : 1995 Acct:[id number] Age/Sex: 30 / F ADM Date: Loc[facility] 250-[address]: KUNAL HYATT M.D. Ordering Physician: Steph Keane Date of Service: 08/27/25 Procedure(s): US OB BPP w non-stress Accession Number(s): [id number] cc: Steph Keane; Yomaira BELTRAN [place] [id number] Patient Name: JUHI GAMA MRN: [facility]:[id number] date: 1995 Sex: F Assigned Patient Location: LAB Current Patient Location: LAB Accession/Order Number: [id number] Exam Date: 08/27/2025 17:37 Report Date: 08/27/2025 [...] Morillo M.D. 08/27/2025 6:02 PM Dictation Location: [place] [address] Electronically authenticated by: [id number] Y Date: 08/27/2025 18:02 Dictated By: Jp Morillo D.O. Signed By: 08/27/251804 DD/ 01 TD/TT: Research Development Director: LANETTE HealthcareRadiology Study observation (narrative)NOMShalonda SmallUS OB BPP W NON-STRESSOrdered By: Radiologist Radiology on 08-58-8355DMDW Healthcare Work Phone: Urinalysis macro (dipstick) panel (U)on 08-27-2025 Bilirubin, UANegativeNegative - 4(70) +++ mg/dLNOMS HealthcareBlood, UANegative Negative - 50 [place]/mcLNOMS HealthcareClarity, UAClearNOMS HealthcareColor, UA YellowNOMS HealthcareGlucose, UANegativeNegative - 2000(110) ++++ mg/dLNOMS HealthcareInterpretation and review of laboratory resultsNormalHermann Area District Hospital Ketones, UANegativeNegative - 160(16) ++++ mg/dLCASTLEVIEW HOSPITAL HealthcareLeukocytes, UA NegativeNegative - 500+++ Robinson/mcLNOIL HealthcareNitrite, UANegativeNegative - PositiveNOIL HealthcarepH, UA65 - 9NOIL HealthcareProtein, UANegativeNegative - 2000(20) ++++ mg/dLCASTLEVIEW HOSPITAL HealthcareSpec Grav, UA1.0151 - 1.03NOIL Healthcare Urobilinogen, UA2.00.2 - 12 mg/dLNOIL HealthcareNOIL HealthcareURINE CULTURE, ROUTINEon 76-25-8478Htaunnqs identified Cx Nom (U) Urine Culture, Routine NOMS HealthcareBacteria identified Cx Nom (U)Mixed urogenital floraNOIL HealthcareBacteria identified Cx Nom (U)25,000-50,000 colony forming units per mLNOMS HealthcareBacteria identified Cx Nom (U)Performed at: - [facility] NOMS HealthcareBacteria identified Cx Nom (U)[address] [place] [address] [id number] HealthcareBacteria identified Cx Nom (U)Block Hand: Cm Sandoval PhD, Phone: [phone] HealthcareCLINISYNHUNT MEMORIAL [facility]ITAL Wtmkrtndwl7pr hr Glucose Tolerance 100 gm loadon 22-48-9248Iuvcodt Tolerance Test 2 Hvve507 [facility] Health Tiffin HospitalCapillary Glucose POCon 32-65-1062Bnjxptp [Mass/Vol]88 mg/uCOqxnsm06-67LemfpoCrystal Clinic Orthopedic CenterComment on above:Performed By: #### [id number] #### [facility] [address] [place], [place] [address]Ckw 1 Hron 10-54-0527Umrgoqe [Mass/Vol]152 mg/uQImjnkf69-250 [facility]opedic CenterComment on above:Performed By: #### [id number] #### [facility] [address], [place] [address]Nnj 2 Hron 78-64-2421Lpsoige [Mass/Vol]169 mg/bFJyhz34-373 [facility] CenterComment on above:Performed By: #### [id number] #### [facility] [address], [place] [address]Ckg 3 Hron 01-86-7113Ddtxurd [Mass/Vol]141 mg/zXRibz01-955 [facility] CenterComment on above:Performed By: #### [id number] #### [facility] [address], [place] [address]Tot Fastingon 98-36-3775Mwhqirl [Mass/Vol]82 mg/wHZikcqo42-05 [facility] CenterComment on above:Performed By: #### [id number] #### [facility] [address], [place] [address]Gbvloak tolerance, 1 houron 62-49-2737Zfeydrc Tolerance Test 1 Yuqo451KbaNnwsdy Health SystemGlucose tolerance, 3 hourson 44-35-4052Lmvxnrt Tolerance Test 3 Ihpp034AwtFjvkus Health SystemGlucose, tolerance fastingon 04-12-6781Uyxcvdi Tolerance Test Jyebalu44BrdSlajbj Health SystemNo Panel Informationon 92-22-7046TjpPhosciMercy Health Tiffin HospitalCBC w/ Auto Diffon 08-12-2025 Basophil Absolute0.1 E9/LNormal0.0-0.2Fisher [facility]opa[facility] InstituteComment on above:Performed By: #### [id number] #### [facility] [address] [place] [address]Ttgfuwmdc/100 WBC (Bld)0.6 %Normal0.0-2.0C[facility] Orthopedic CenterComment on above:Performed By: #### [id number] #### [facility] [address], [place] [address]Wii Absolute0.1 E9/LNormal0.0-0.5Fisher [facility] Comment on above:Performed By: #### [id number] #### [facility] [address] [place] [address]Zbrrencvbig/100 WBC (Bld)1.0 %Normal0.0-8.0[facility] Orthopedic CenterComment on above:Performed By: #### [id number] #### [facility] [address], [place] [address]Pnulcwrmhpg distribution width (RBC) [Ratio]12.9 %Normal 10.9-14.2FChillicothe HospitalComment on above:Performed By: #### [id number] #### [facility] [address], [place] [address]Zsmvigdniz (Bld) [Volume fraction]33.1 %Low34.0-46.0[facility] Orthopedic CenterComment on above:Performed By: #### [id number] #### [facility] [address], [place] [address]Vssnwxmiwo (Bld) [Mass/Vol]11.4 g/dLLow12.0-16.0[facility] CenterComment on above:Performed By: #### [id number] #### [facility] [address] [place] [address]Xislq Absolute2.0 E9/LNormal1.0-4.0[facility] Comment on above:Performed By: #### [id number] #### [facility] [address], [place] [address]Klptepdbovm/100 WBC (Bld)19.6 %Zeexjg66.0-50.0[facility] CenterComment on above:Performed By: #### [id number] #### [facility] [address], [place] [address]DGK (RBC) [Entitic mass]29.9 mzMwmmca08.0-34.0[facility] CenterComment on above:Performed By: #### [id number] #### [facility] [address], [place] [address]BCZU (RBC) [Mass/Vol]34.4 g/qQSvpado83.4-36.0[facility] CenterComment on above:Performed By: #### [id number] #### [facility] [address], [place] [address]CGM (RBC) [Entitic vol]86.7 tBTvqkng99.0-100.0[facility] CenterComment on above:Performed By: #### [id number] #### [facility] [address], [place] [address]Fmpu Absolute0.5 E9/LNormal0.2-1.0[facility] Comment on above:Performed By: #### [id number] #### [facility] [address], [place] [address]Zlsvmagkd/100 WBC (Bld)4.6 %Normal4.0-14.0[facility] Orthopedic CenterComment on above:Performed By: #### [id number] #### [facility] [address], [place] [address]Bopnfd Absolute7.5 E9/LNormal2.0-7.5FChillicothe Hospital Comment on above:Performed By: #### [id number] #### [facility] [address] [place] [address]Esmdgv Auto74.2 %Ksfuvh43.0-75.0[facility] Comment on above:Performed By: #### [id number] #### [facility] [address] [place] [address]Vwjxifep874.0 E9/LCvlizb027.0-500.0[facility] Comment on above:Performed By: #### [id number] #### [facility] [address] [place] [address]Hvktlxsl mean volume (Bld) [Entitic vol]8.1 fLNormal6.4-10.8 [facility] CenterComment on above:Performed By: #### [id number] #### [facility] [address], [place] [address]KFO1.8 E12/LLow4.3-5.9[facility]opedic CenterComment on above:Performed By: #### [id number] #### [facility] [address] [place] [address]WFH40.1 E9/LNormal4.0-11.0[facility]opedic CenterComment on above:Performed By: #### [id number] #### [facility] [address], [place] [address]Ksuurwonnt 75-72-2942Qfbtapxy Lvl7 ng/dYEoh98-339PszovxCrystal Clinic Orthopedic CenterComment on above:Performed By: #### [id number] #### [facility] [address], [place] [address]Hsfmybdn 58-94-8032Dnhfsw Lvl>22.3Normal>=6.7FChillicothe HospitalComment on above:Performed By: #### [id number] #### [facility] [address], [place] [address]Vkpf Scr Glu 1 Hron 85-73-3839Guabcic [Mass/Vol]155 mg/dLHigh 55-140C[facility] Clinic Orthopedic CenterComment on above:Performed By: #### [id number] #### [facility] [address] [place] [address]Ubiuwve 1h post 50g loadon 76-46-2717Pwvbcov, 1 hr PP 50GM dose 155ProMedica Health SystemIronon 73-23-9636Xdmw32 microgram/vYMiltqo70-473OpaoczCrystal Clinic Orthopedic CenterComment on above:Performed By: #### [id number] #### [facility] [address], [place] [address]Cw Panel Informationon 36-79-5790VWVI HealthcareTIBC Calculated on 86-75-2061SWNS548 microgram/yOQegf223-403PmetufCrystal Clinic Orthopedic CenterComment on above:Performed By: #### [id number] #### [facility] [address], [place] [address]Xdztaupdwwe [Mass/Vol]455 mg/qNHadd416-600AckreqCrystal Clinic Orthopedic CenterComment on above:Performed By: #### [id number] #### [facility] [address], [place] [address]OR OB LIMITED 1+ FETUSESon 24-76-0451HG OB LIMITED 1+ FETUSES FINDINGS: Single viable [...] Delivery: 11/28/25 Gestational Age as of 07/21/2025: 43k1uJpwezxlvpw macro (dipstick) panel (U)on 18-39-6972Rcwspxuvc, UANegativeNegative - 4(70) +++ mg/dLNOMS HealthcareBlood, UANegativeNegative [...] HealthcareUrobilinogen, UA1.00.2 - 12 mg/dLNOMS HealthcareVit B12on 95-45-4693Zpdlggxid (Vitamin B12) [Mass/Vol]205 pg/gCWxgsmx83-7475Lvdbuc [facility] InstituteComment on above:Performed By: #### [id number] #### [facility] [address], [place] [address]YHW w/ Auto Diffon 98-66-8612Gxkmeaph Absolute0.0 E9/LNormal 0.0-0.2[facility] InstituteComment on above:Performed By: #### [id number] #### [facility] [address], [place] [address]Yyuaxqgup/100 WBC (Bld)0.2 %Normal0.0-2.0[facility] Orthopedic CenterComment on above:Performed By: #### [id number] #### [facility] [address] [place] [address]Sih Absolute0.1 E9/LNormal0.0-0.5FChillicothe Hospital Comment on above:Performed By: #### [id number] #### [facility] [address], [place] [address]Aaghqqhbsdo/100 WBC (Bld)0.5 %Normal0.0-8.0[facility] Orthopedic CenterComment on above:Performed By: #### [id number] #### [facility] [address] [place] [address]Hgqbhjisjgs distribution width (RBC) [Ratio]13.0 %Normal 10.9-14.2FChillicothe HospitalComment on above:Performed By: #### [id number] #### [facility] [address] [place] [address]Qwuimktxlw (Bld) [Volume fraction]31.9 %Low34.0-46.0[facility] Orthopedic CenterComment on above:Performed By: #### [id number] #### [facility] [address] [place] [address]Qccryrptlk (Bld) [Mass/Vol]11.1 g/dLLow12.0-16.0[facility] CenterComment on above:Performed By: #### [id number] #### [facility] [address] [place] [address]Aezlc Absolute2.1 E9/LNormal1.0-4.0[facility] Comment on above:Performed By: #### [id number] #### [facility] [address], [place] [address]Alaxfbgeffj/100 WBC (Bld)16.2 %Slegzi03.0-50.0[facility]opedic CenterComment on above:Performed By: #### [id number] #### [facility] [address], [place] [address]LFW (RBC) [Entitic mass]29.9 btTvqvth32.0-34.0[facility] CenterComment on above:Performed By: #### [id number] #### [facility] [address] [place] [address]SMYC (RBC) [Mass/Vol]34.8 g/tCFrqwfk74.4-36.0[facility] CenterComment on above:Performed By: #### [id number] #### [facility] [address] [place] [address]WEZ (RBC) [Entitic vol]85.7 pSAbnhyn08.0-100.0[facility] CenterComment on above:Performed By: #### [id number] #### [facility] [address] [place] [address]Pifr Absolute0.9 E9/LNormal0.2-1.0[facility] Comment on above:Performed By: #### [id number] #### [facility] [address] [place] [address]Nqyfdjnww/100 WBC (Bld)7.0 %Normal4.0-14.0[facility] CenterComment on above:Performed By: #### [id number] #### [facility] [address] [place] [address]Hhyplg Absolute9.7 E9/LHigh2.0-7.5Fisher [facility] Comment on above:Performed By: #### [id number] #### [facility] [address] [place] [address]Ynhczz Auto76.1 %High36.0-75.0[facility] Comment on above:Performed By: #### [id number] #### [facility] [address] [place] [address]Bhdijedw635.0 E9/FHmrmku164.0-500.0[facility] Comment on above:Performed By: #### [id number] #### [facility] [address], [place] [address]Btvmpvuz mean volume (Bld) [Entitic vol]8.0 fLNormal6.4-10.8 [facility] CenterComment on above:Performed By: #### [id number] #### [facility] [address], [place] [address]PXS1.7 E12/LLow4.3-5.9[facility] CenterComment on above:Performed By: #### [id number] #### [facility] [address], [place] [address]CFH67.8 E9/LHigh4.0-11.0[facility] CenterComment on above:Performed By: #### [id number] #### [facility] [address], [place] [address]YEPrg 75-43-8949PJ0 [Moles/Vol]20 mmol/PWwz13-53NiocmkCrystal Clinic Orthopedic CenterComment on above:Performed By: #### [id number] #### [facility] [address], [place] [address]Dygdd gap [Moles/Vol]16 mmol/LNormal6-16[facility] Orthopedic CenterComment on above:Performed By: #### [id number] #### [facility] [address], [place] [address]Txlkhgm [Mass/Vol]3.8 g/dLNormal3.3-5.0[facility] CenterComment on above:Performed By: #### [id number] #### [facility] [address], [place] [address]Zzihqzo/Globulin [Mass ratio]1.3 {ratio}Normal1.1-2.2FChillicothe HospitalComment on above:Performed By: #### [id number] #### [facility] [address], [place] [address]Rri Phos78 Int._Unit/XUjhbbc04-20TuuccgCrystal Clinic Orthopedic Center Comment on above:Performed By: #### [id number] #### [facility] [address], [place] [address]RNX47 Int._Unit/LNormal6-46[facility]opedic CenterComment on above:Performed By: #### [id number] #### [facility] [address], [place] [address]BIC50 Int._Unit/LNormal5-43[facility]opedic CenterComment on above:Performed By: #### [id number] #### [facility] [address], [place] [address]Pukd Total0.8 mg/dLNormal0.0-1.1FChillicothe Hospital Comment on above:Performed By: #### [id number] #### [facility] [address], [place] [address]YCK/Creat Ratio18 No TketeRgogar07-18GnkmqyCrystal Clinic Orthopedic CenterComment on above:Performed By: #### [id number] #### [facility] [address], [place] [address]Xeyqllv [Mass/Vol]8.9 mg/dLNormal8.9-11.1FChillicothe HospitalComment on above:Performed By: #### [id number] #### [facility] [address], [place] [address]Bntrgtcq [Moles/Vol]104 mmol/WKaqmrt712-978GgpvuwCrystal Clinic Orthopedic CenterComment on above:Performed By: #### [id number] #### [facility] [address], [place] [address]Ltaamikqef [Mass/Vol]0.6 mg/dLNormal0.5-1.3FChillicothe HospitalComment on above:Performed By: #### [id number] #### [facility] [address], [place] [address]Qskjqazf (S) [Mass/Vol]3.0 g/dLNormal1.4-4.0C[facility] Clinic Orthopedic CenterComment on above:Performed By: #### [id number] #### [facility] [address], [place] [address]Gklnrvr [Mass/Vol]92 mg/vJSahxbx89-477XbakvpCrystal Clinic Orthopedic CenterComment on above:Performed By: #### [id number] #### [facility] [address], [place] [address]Kkvwmrnas [Moles/Vol]3.7 mmol/LNormal3.5-5.3FChillicothe HospitalComment on above:Performed By: #### [id number] #### [facility] [address], [place] [address]Mxxfbia [Mass/Vol]6.8 g/dLNormal6.0-7.8C[facility] Orthopedic CenterComment on above:Performed By: #### [id number] #### [facility] [address], [place] [address]Gijeus [Moles/Vol]136 mmol/WCveeoc477-361LsgyadCrystal Clinic Orthopedic CenterComment on above:Performed By: #### [id number] #### [facility] [address], [place] [address]Yfyi nitrogen [Mass/Vol]11 mg/dLNormal5-21C[facility] Orthopedic CenterComment on above:Performed By: #### [id number] #### [facility] [address], [place] [address]Saray Panelon 11-08-4676Qdzhljkxcrs [Mass/Vol]239 mg/dLHigh 120-200C[facility] Clinic Orthopedic CenterComment on above:Performed By: #### [id number] #### [facility] [address], [place] [address]Encivjpippd in HDL [Mass/Vol]88 mg/dLInvalid Interpretation CodeCrystal Clinic Orthopedic CenterComment on above:Result Comment: '>= 60 LOW RISK' '<= 40 HIGH RISK'Performed By: #### [id number] #### [facility] [address], [place] [address]Datckbjtlsm in LDL [Mass/Vol]144 mg/dLHigh<=129C[facility] Clinic Orthopedic CenterComment on above:Performed By: #### [id number] #### [facility] [address] [place] [place], [place] [address]Owwspqkqrwn in VLDL [Mass/Vol]40 mg/dLNormal7-40C[facility] Orthopedic CenterComment on above:Performed By: #### [id number] #### [facility] [address], [place] [address]Kxggwewyvpta [Mass/Vol]202 mg/dLHigh<=149C[facility] Orthopedic CenterComment on above:Performed By: #### [id number] #### [facility] [address] [place], [place] [address]cFTQzc 32-28-7358xJHA623 mL/min/1.73 i7Sqlgsu>=59C[facility] Clinic Orthopedic CenterComment on above:Performed By: #### [id number] #### [facility] [address], [place] [address]IMV, SERUM, OPEN SPINA BIFIDAon 39-73-5173ZJY MOM0.95.[facility] HealthcareAFP VALUE59.2 ng/mL.[facility] HealthcareCOMMENT:Comment.[facility] Healthcare Comment on above:Amy Ramos, Ph.D., [facility] Director References: Available Upon Request. Multiples Of Median Cutoffs For AFP Elevations Hsieh 2.5 Black 2.8 IDD 2.0 Twins 4.5 Abbreviation Definitions IDD - Insulin Dep Diabetes OSBR - Open Spina Bifida Risk For further inquiries contact [employer] [facility] at [phone]. This test was developed and its performance characteristics determined by [employer]. It has not been cleared or approved by the Food and Drug Administration. Performed at: [facility] [address] [place], [place] [id number] Block Hand: Dona Justin [facility], Phone: [phone] GEST. AGE ON COLLECTION DATE20.6. weeksNOMS HealthcareGESTAT. AGE BASED ONLMP. NOMS HealthcareComment on above:Recalculations are not recommended when gestational dating by LMP and ultrasound are within 10 days. INSULIN DEP DIABETESNo.[facility] HospitalINTERPRETATIONComment.[facility] Comment on above:Interpretation: Screen Negative This [...] Customer Services to discuss available options. The [employer] recommends amniocentesis be offered to women age 35 and older. MATERNAL AGE AT EDD30.7. yrNOIL HealthcareMULTIPLE GESTATIONNo.[facility] OSBR RISK 1 [id number].[facility] HospitalRACECaucasian.[facility] HospitalRESULTSReport. [facility] HospitalTEST RESULTS:Negative.[facility] HospitalLzfamymfekAMIJZZ547. lbWestern State Hospital HealthcarePREGNANCY N N LMP [id number] 2 17 N 1 Y 146 N N N N N White/ CLINISYNCNOIL HealthcareUS OB 14+ WEEKS ANATOMY SCANon 68-50-4870WX OB 14+ WEEKS ANATOMY SCANEXAM: US OB [...] II, MD, PHD at 16-Jul-2025 08:07:07 AM [facility] TeleradiologyNormalNot AvailableComment on above:Order Comment: US OB ANATOMY SINGLE W US OB CERVICAL LENGTH Estimated Date of Delivery: 11/28/25 Gestational Age as of 06/22/2025: 02a5sUapdehrydw macro (dipstick) panel (U)on 29-35-3824Cvpasveup, UANegativeNegative - 4(70) +++ mg/dLNOMS HealthcareBlood, UANegativeNegative [...] 12 mg/dLNOMS HealthcareNOMS Healthcare RECURRENT VAGINITIS (HTRX)on 57-09-8781XZCEVBXSX NPDVTGX3XTNA Healthcare ATOPOBIUM VAGINAENot detectedNOMS HealthcareBVAB 2,3 (BACTERIAL VAGINOSIS ASSOCIATED BACTERIA 2, 3); MOBILUNCUS JOY4JEIV HealthcareBVAB 2,3 (BACTERIAL VAGINOSIS ASSOCIATED BACTERIA 2, 3); MOBILUNCUS SPPNot detectedNOMS Healthcare RADHA ALBICANS, PARAPSILOSIS, RDWCULHVSQ3SLVJ HealthcareCANDIDA ALBICANS, PARAPSILOSIS, TROPICALISNot detectedNOMS HealthcareCANDIDA CFGMVEMD0BAGJ HealthcareCANDIDA GLABRATANot detectedNOMS HealthcareCANDIDA TFITPX6IRLQ HealthcareCANDIDA KRUSEINot detectedNOMS HealthcareCHLAMYDIA TNQTIDMTCFO5JWVR HealthcareCHLAMYDIA TRACHOMATISNot detectedNOMS HealthcareGARDNERELLA VAGINALIS 17.967AbnormalNOMS HealthcareGARDNERELLA VAGINALISDetectedAbnormalNOIL HealthcareInterpretation and review of laboratory resultsAbnormalNOIL Healthcare MEGASPHAERA (TYPES 1, 2)0NOMS HealthcareMEGASPHAERA (TYPES 1, 2)Not detectedNOMS HealthcareMYCOPLASMA HUDHRBFNCL6DJSK HealthcareMYCOPLASMA GENITALIUMNot detectedNOMS HealthcareNEISSERIA TAKPMYVILTA9YLKK HealthcareNEISSERIA GONORRHOEAENot detectedNOMS HealthcareTRICHOMONAS IFZAUGWCY1JCMS Healthcare TRICHOMONAS VAGINALISNot detectedNOMS HealthcareNOMS HealthcareUrinalysis macro (dipstick) panel (U)on 68-94-2046Doihxpfoc, UANegativeNegative - 4(70) +++ mg/dL NOMS HealthcareBlood, [...] mg/dLNOIL HealthcareNOIL HealthcareUrinalysis macro (dipstick) panel (U)on 90-89-0780Hpgpthmjs, UA NegativeNegative - 4(70) +++ mg/dLNOIL HealthcareBlood, UANegativeNegative - 50 Teodoro/mcLNOIL HealthcareClarity, UAClearNOMS HealthcareColor, UAYellowNOIL HealthcareGlucose, UANegativeNegative - 2000(110) ++++ mg/dLCASTLEVIEW HOSPITAL Healthcare Interpretation and review of laboratory resultsNormalCASTLEVIEW HOSPITAL HealthcareKetones, UA NegativeNegative - 160(16) ++++ mg/dLCASTLEVIEW HOSPITAL HealthcareLeukocytes, UAPositive Negative - 500+++ Robinson/mcLCASTLEVIEW HOSPITAL HealthcareComment on above:smallNitrite, UA NegativeNegative - PositiveNOIL HealthcarepH, UA6.55 - 9NOMS HealthcareProtein, UANegativeNegative - 1999(20) ++++ mg/dLNOIL HealthcareSpec Grav, UA1.011 - 1.03 NOMS HealthcareUrobilinogen, UA0.20.2 - 12 mg/dLSaint Luke's Hospital Healthcare BOX TESTon 97-69-1195FMM TEST SENT OUTunSt. Francis HospitalBkdsjpolaxHYS1xxopgDANS PjygruclwzNCD17/08/20NOChildren's Mercy NorthlandUNITY BOX CLINISYNCCBC without diffon 91-17-2305Ammuqqwjiu (Bld) [Volume fraction]39.8 % [facility] SystemHemoglobin (Bld) [Mass/Vol]13.2 g/dLMercy Health Tiffin HospitalPlatelets (Bld) [#/Vol]390 10*3/uLMercy Health Tiffin HospitalRbc Mcv (Fl) By Automated Count84.7Mercy Health Tiffin HospitalDrug Screen, Urineon 05-04-2025 Amphetamine/MethamphetamineNegativeJ.W. Ruby Memorial Hospital SystemBarbituratesNegative [facility] SystemBenzodiazepinesNegativeJ.W. [facility] Hospital SystemCocaine MetaboliteNegativeJ.W. [facility] Hospital SystemMethadoneNegativeJ.W. [facility] Hospital SystemOpiatesNegativeProMedica Health SystemOxycodoneNegativeProMedica Health SystemPhencyclidineNegativeProMedica Health SystemThc Marijuana, UrineNegative [facility] SystemHBV surface Ag IA Qlon 33-89-2732Ctgqnkfxk B Surface AntigenNegativeProMedica Health SystemHCV Ab IA Qlon 93-88-0373TCB Ab Ql (S) Non-ReactiveProMediks Health SystemHIV 1+2 Ab+HIV1 p24 Ag IA Qlon 32-24-1536CFZ 1&2 AB/AGNon-ReactiveJ.W. Ruby Memorial Hospital SystemHemoglobin A1con 39-30-4478DrB7n (Bld) [Mass fraction]5.3 %4.0 - 6.0 %[facility] SystemNo Panel Information on 96-61-0655KEXT HealthcareRubella IGG immune statusOrdered By: Angeline Velasquez on 32-64-5312Bdrhnwq immune IgGProAtrium Health Floyd [facility] Health SystemType and screenon 39-80-3216Zep/Rh(D)PositiveProKettering Memorial HospitalHCG ( test) Ql (U)on 97-18-4926Piqvfcrzxmqflt and review of laboratory resultsAbnormalNOIL Healthcare Preg Test, UrPositiveNegativeNOChildren's Mercy NorthlandNOIL HealthcareUS OB TRANSVAGINALon 20-68-2073[place] [address] Ultrasound Report Signed Patient: JUHI COPE MR#: [id number] : 1995 Acct:[id number] Age/Sex: 30 / F ADM Date: 05/01/25 Loc: US Attending Dr: Nathan Pop D.O. Ordering Physician: Nathan Pop D.O. Date of Service: 05/01/25 Procedure(s): US OB transvaginal Accession Number(s): [id number] cc: Nathan Pop D.O.; Physician,Non-Staff Katherine The [address] [address] Patient Name: JUHI COPE MRN: [id number] date: 1995 Sex: F Assigned Patient Location: US Current Patient Location: US Accession/Order Number: [id number] Exam Date: 05/01/2025 08:57 Report Date: 05/01/2025 [...] Faria M.D. 05/01/2025 9:01 AM Dictation Location: [place] [address] Electronically authenticated by: [id number] Y Date: 05/01/2025 09:01 Dictated By: Will Faria M.D. Signed By: 05/01/2504 DD/ 0 TD/TT: Research Development Director:TBHRadiology, Radiologist, MD - 05/01/2025 [place] [address] Ultrasound Report Signed Patient: JUHI COPE MR#: [id number] : 1995 Acct:[id number] Age/Sex: 30 / F ADM Date: 05/01/25 Loc: US Attending Dr: Nathan Pop D.O. Ordering Physician: Nathan Pop D.O. Date of Service: 05/01/25 Procedure(s): US OB transvaginal Accession Number(s): [id number] cc: Nathan Pop D.O.; Physician,Non-Staff Katherine [address] [address] Patient Name: JUHI COPE MRN: [id number] date: 1995 Sex: F Assigned Patient Location: US Current Patient Location: US Accession/Order Number: [id number] Exam Date: 05/01/2025 08:57 Report Date: 05/01/2025 [...] Faria M.D. 05/01/2025 9:01 AM Dictation Location: [place] [address] Electronically authenticated by: [id number] Y Date: 05/01/2025 09:01 Dictated By: Will Faria M.D. Signed By: 05/01/25903 DD/ 0 TD/TT: Research Development Director: LANETTE HealthcareRadiology Study observation (narrative)LANETTE SmallUS OB TRANSVAGINALOrdered By: Radiologist Radiology on 46-46-6311P[facility]Z Healthcare Work Phone: Urinalysis macro (dipstick) panel [...] mg/dLNOMS HealthcareNOMS HealthcareCHEMISTRYOrdered By: SYSTEM SYSTEM on 17-91-3323Ymeuoxubabum Lvl31.35 ng/mLInvalid Interpretation CodeRemisol ChemComment on above:Result Comment: 'F NON FOLLICULAR = 0.10 - 0.60' 'LUTEAL = 3.00 - 17.5' 'MIDLUTEAL = 3.30 - 18.6' 'POST-MENOPAUSE = 0.10 - 0.40' '-FIRST TRIMESTER = 8.30 - 66.5' 'SECOND TRIMESTER = 18.9 - 66.1' 'THIRD TRIMESTER = 35.8 - 312.4' 'MALES = 0.14 - 2.06'Progesteroneon 14-02-3250Ynzdutesitoc Lvl31.35 ng/mLInvalid Interpretation CodeCrystal Clinic Orthopedic CenterComment on above:Result Comment: 'F NON FOLLICULAR = 0.10 - 0.60' 'LUTEAL = 3.00 - 17.5' 'MIDLUTEAL = 3.30 - 18.6' 'POST-MENOPAUSE = 0.10 - 0.40' '-FIRST TRIMESTER = 8.30 - 66.5' 'SECOND TRIMESTER = 18.9 - 66.1' 'THIRD TRIMESTER = 35.8 - 312.4' 'MALES = 0.14 - 2.06'Performed By: #### [id number] #### [facility] [address] [place], [place] [address]Xjnhkrnktzkack 78-11-9769Pnufpqphsyuy4.2 ng/mLNormal.[facility] Physician GroupComment on above:Result Comment: Follicular phase 0.1 - 0.9 Luteal phase 1.8 - 23.9 Ovulation phase 0.1 - 12.0 First trimester 11.0 - 44.3 Second trimester 25.4 - 83.3 Third trimester 58.7 - 214.0 Postmenopausal 0.0 - 0.1 Performed at: - [facility] [id number] Block Hand: Cm Sandoval PhD, Phone: [phone] PERFORMED BY: [address] [place] [address] PATHOLOGIST STOPE MINER ARNULFO THOMAS M.D.Performed By: #### PROG #### [facility] , Transvaginal Non-OBon 57-01-1401NR Transvaginal Non-OBExam Date/Time: 01/22/2025 16:22 EST Reason for Exam: N94.6 Report PLEASE SEE US Pelvis Non-OB Complete REPORT DATED: 01/22/2025. Ordering Provider: Nathan POP FINAL REPORT Dictated: 01/27/2025 10:11 am Siddharth Foy MD Signed (Electronic Signature): 01/27/2025 10:11 am Signed by: Siddharth Foy MD Transcribed by: ELOISA Technologist: Filiberto [facility]opa[facility] InstituteUS Pelvis Non-OB Completeon 19-31-7398MP Pelvis Non-OB CompleteExam Date/Time: 01/22/2025 16:24 EST [...] Kate Gonzalez MD Transcribed by: ELOISA Technologist: TalyaCrystal Clinic Orthopedic CenterMILADY,APTIMA HPV,AGE GDLNon 69-91-6434JAJ GDLN ACOG TESTINGNote.NOMS HealthcareComment on above:TESTS RESULT FLAG UNITS REF RANGE LAB Clinician Provided Cytology Information Source.............Cervix;Endocervix No. of containers..01 ThinPrep Vial Age Algo ACOG Sarah... -24 12 FLAG LEGEND: L-Low Normal,H-High Normal,LL-Alert Low,HH-Alert High <-Panic Low,>-Panic High,A-Abnormal,AA-Critical Abnormal Performed at: 01 =G [facility] [place] [address] Loren Oneal MD, IGP, RFX APTIMA HPV ASCUNote.[facility] HealthcareComment on above:TESTS RESULT FLAG UNITS REF RANGE LAB DIAGNOSIS: 02 NEGATIVE FOR INTRAEPITHELIAL LESION OR MALIGNANCY. Specimen adequacy: 02 Satisfactory for evaluation. Endocervical and/or squamous metaplastic cells (endocervical component) are present. Performed by: Sophia Calzada, Car Attendant ([facility]) . 02 Note: Note 02 The [...] <-Panic Low,>-Panic High,A-Abnormal,AA-Critical Abnormal Performed at: [address] [address] Loren Oneal MD, Performed at: =G - [facility] [id number] Block Hand: Loren Oneal MD, Phone: [phone] Performed at: [facility] [id number] Block Hand: Loren Oneal MD, Phone: [phone] BRUSH-SPATULA CERVIX ENDOCERVIX [facility] 78-83-6026YJBJRfekstjmr (WHQ) JUHI COPE ([id number]) 1995 F Date Time Provider Department 04/29/24 [...] Status:Closed by CANDIS GARCES on 04/29/24NoMercy Health [facility]iffin Hospital Gladys 94-48-1553INNFXkgiajdrx (WHQ) JUHI COPE ([id number]) 1995 F Date Time Provider Department 04/25/24 CHARLENE RODRIGUEZ During your visit today, we recorded the following information about you: Anna De Leon 04/25/2024 1:10 PM Signed Pt got in sooner for surgery with her local manager gyn. Please cancel surgery and all pre and [...] Encounter Status:Closed by SUSI DE LEONLEY on 04/25/24[facility] 12-LEADon 04-93-4241[address] [address] Electrocardiograph Report Signed Patient: JUHI COPE MR#: [id number] : 1995 Acct:[id number] Age/Sex: 28 / F ADM Date: 02/13/24 Loc: PST Attending Dr: Nathan Pop D.O. Ordering Physician: Nathan Pop D.O. Date of Service: 02/13/24 Procedure(s): ECG 12 lead Accession Number(s): [id number] cc: The [facility] Test Date: 2024-02-13 Pat Name: JUHI COPE Department: Room: - Gender: Female Translational Specialist: : 1995 Requested By: NATHAN POP Order Number: [id number] Reading MD: MARY KATE ORADZ Measurements Intervals [place] Rate: 86 P: 31 MS: 133 QRS: 20 QRSD: 89 T: 47 QT: 374 QTc: 449 Interpretive Statements SINUS RHYTHM No previous ECG available for comparison Electronically Signed On 02-14-2024 6:50:27 EDT by MARY KATE ORDAZ Dictated By: Mary Kate Ordaz D.O. Signed By: 02/14/24 0650 DD/ 1455 TD/TT: Research Development Director:TBHRadiology, Radiologist, MD - 02/14/[address] [address] Electrocardiograph Report Signed Patient: JUHI COPE MR#: [id number] : 1995 Acct:[id number] Age/Sex: 28 / F ADM Date: 02/13/24 Loc: PST Attending Dr: Nathan Pop D.O. Ordering Physician: Nathan Pop D.O. Date of Service: 02/13/24 Procedure(s): ECG 12 lead Accession Number(s): [id number] cc: The [facility] Test Date: 2024-02-13 Pat Name: JUHI COPE Department: Room: - Gender: Female Translational Specialist: : 1995 Requested By: NATHAN POP Order Number: [id number] Reading MD: MARY KATE ORDAZ Measurements Intervals [place] Rate: 86 P: 31 MS: 133 QRS: 20 QRSD: 89 T: 47 QT: 374 QTc: 449 Interpretive Statements SINUS RHYTHM No previous ECG available for comparison Electronically Signed On 02-14-2024 6:50:27 EDT by MARY KATE ORDAZ Dictated By: Mary Kate Ordaz D.O. Signed By: 02/14/24 0650 DD/ 1455 TD/TT: Research Development Director: LANETTE HealthcareECG 12-LEADOrdered By: Radiologist Radiology on 70-84-6926AUB[facility] Healthcare Work Phone: ECG 12-LEADon 24-34-0847Ftvztttbk Study observation (narrative)LANETTE HealthcareUS PELVIS W/ TRANSVAGINALon 65-63-6108Gzz[place] [address] Ultrasound Report Signed Patient: JUHI COPE MR#: [id number] : 1995 Acct:[id number] Age/Sex: 28 / F ADM Date: 01/15/24 Loc: [facility] Attending Dr: Nathan Pop D.O. Ordering Physician: Nathan Pop D.O. Date of Service: 01/15/24 Procedure(s): US pelvis w/ transvaginal Accession Number(s): [id number] cc: Nathan Pop D.O.; Physician,Non-Staff Katherine The [address] [address] Patient Name: JUHI COPE MRN: [id number] date: 1995 Sex: F Assigned Patient Location: [facility] Current Patient Location: [facility] Accession/Order Number: [id number] Exam Date: 01/15/2024 07:57 Report Date: 01/15/2024 [...] Signed By: 01/15/24 1144 DD/ 1142 TD/TT: Research Development Director:TBHRadiology, Radiologist, - 01/15/2024 [place] [address] Ultrasound Report Signed Patient: JUHI COPE MR#: [id number] : 1995 Acct:[id number] Age/Sex: 28 / F ADM Date: 01/15/24 Loc: [facility] Attending Dr: Nathan Pop D.O. Ordering Physician: Nathan Pop D.O. Date of Service: 01/15/24 Procedure(s): US pelvis w/ transvaginal Accession Number(s): [id number] cc: Nathan Pop D.O.; Physician,Non-Staff M.DKaren The [place] [id number] Patient Name: JUHI COPE MRN: [id number] date: 1995 Sex: F Assigned Patient Location: [facility] Current Patient Location: [facility] Accession/Order Number: [id number] Exam Date: 01/15/2024 07:57 Report Date: 01/15/2024 [...] Signed By: 01/15/24 1144 DD/ 1142 TD/TT: Research Development Director: LANETTE HealthcareRadiology Study observation (narrative)[facility] HealthcareUS PELVIS W/ TRANSVAGINALOrdered By: Radiologist Radiology on 49-31-0625[employer] Work Phone: cNPTanya [phone] (Q) JUHI COPE ([id number]) 1995 F Date Time Provider Department 12/12/23 [...] [I10] Encounter Status:Closed by CANDIS GARCES on 12/12/23[facility] 15-37-6670FVPPJdmmfj Visit (GYMGME) JUHI COPE ([id number]) 1995 F Date Time Provider Department 12/10/23 10:30 AM CHARLENE RODRIGUEZ During your visit today, we recorded the following information about you: Pulse Blood pressure Weight 98/minute 124/84 68.9 kg Charlene Rodriguez DO 12/10/2023 3:14 PM Signed [facility] Emblem SECTION FOR MINIMALLY INVASIVE GYNECOLOGIC SURGERY OUTPATIENT VISIT DATE 12/10/2023 OUTPATIENT VISIT TYPE Follow-up visit PRIMARY CARE PHYSICIAN: Denny Rodríguez [address] [place] [address] REFERRING PHYSICIAN: Self CHIEF COMPLAINT: No chief [...] MRI: no evidence of 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) JUHI COPE ([id number]) 1995 F Date Time Provider Department 08/02/23 [address]E [address]IGUE[address] [facility] During your visit today, we recorded the [...] completed via Cover MyMeds. Juhi Cope (Morales: [id number]) - [id number] Orilissa 150MG tablets Status: Sent To Plan [...] [I10] Encounter Status:Closed by JENIFER LYNN on 08/02/23[facility] 19-83-0271VIKOOoxhbx Visit (GYMGME) JUHI COPE ([id number]) 1995 F Date Time Provider Department 07/16/23 11:30 AM CHARLENE RODRIGUEZ During your visit today, we recorded the following information about you: Blood pressure Last Period 136/90 07/08/23 Charlene Rodriguez DO 07/16/2023 12:41 PM Signed [facility] SECTION FOR MINIMALLY INVASIVE GYNECOLOGIC SURGERY OUTPATIENT VISIT DATE 07/16/2023 OUTPATIENT VISIT TYPE Follow-up visit PRIMARY CARE PHYSICIAN: Denny Rodríguez [address] [place] [address] REFERRING PHYSICIAN: Denny Rodríguez CHIEF COMPLAINT: No [...] additional bowel lesions identified 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 IMPRESSION: No deep infiltrating endometriosis. Research Development Director: DAVID Transcribe Date/Time: Jun 12 2023 2:54P Dictated by : ASHLEY DUKE MD This examination was interpreted and the report reviewed and electronically signed by: SONIDO FLAHERTY MD on Jun 12 2023 4:51PM EST [id number] Health TroyCNPNon 61-60-1419ULQVGvfowvhiv (GYNMN) JUHI COPE ([id number]) 1995 F Date Time Provider Department 05/11/23 CHARLENE RODRIGUEZ GYNMN During your visit today, we recorded the following information about you: Tawana Nair [facility] 05/11/2023 1:21 PM Signed Reason for call: [...] Takes aygestin 5mg daily. She did not hot die picker flexeril. Encourage to hot die picker the flexeril as this will help with the cramping. Reviewed red flag bleeding symptoms that require trip to ER (soaking greater than one overnight pad per hour, chest pain, shortness of breath, fatigue, palpitations).. Advised keep appt. Gives verbal understanding. Appointments for Next 60 Days Date Time Provider Location Dept Phone 05/17/2023 1:00 PM CHARLENE RODRIGUEZ [facility] [phone] Candis Suárez RN Allergies As of Date: 05/11/2023 (No Known Allergies) Date Reviewed: 05/09/2023 Reviewed by: Jihan Downs APRN.FLORIST MANAGER - Fully Assessed Reason for Visit: [...] [I10] Encounter Status:Closed by CANDIS WILLINGHAM on 05/11/23[facility] SystemGracie 18-36-1601WZCWMkcqfs Visit ([facility]) NITO COPEIS ([id number]) 1995 F Date Time Provider Department 05/01/23 10:[address] [facility] During your visit today, we recorded the following information about you: Blood pressure Weight Height Last Period 148/64 64.9 kg 1.575 m 04/22/23 Jihan Downs APRN.FLORIST MANAGER 05/09/2023 11:46 AM Signed Juhi Cope is a 28 year old female who presents for problem visit for pain HPI: Pain is week before period and week of period. Worse on her period for every day she's bleeding Urinary - No symptoms GI - Always constipated. No meds [place] - painful always Pain is on left [...] L0 SAB0 IAB0 Ectopic0 Multiple0 Live Births0 Finishing Area Supervisor History LMP: 03/26/2023 (Approximate), Having periods Age at Menarche: Age at First : Age at Menopause: Finishing Area Supervisor History Comments: Sexual Activity: Never; No [...] physical therapy - or can go locally pelvicI-CAN Systemsab.[employer] Trial flexeril at bedtime Can consider Baclofen [...] physical therapy - or can go locally pelvicI-CAN Systemsab.[employer] Trial flexeril at bedtime Can consider Baclofen suppositories - let me know if you want to trial after you go to PT Contin (more content not included)...NormalFlower HospitalCHEMISTRY Ordered By: SYSTEM SYSTEM on [id number] [Mass/Vol]4.3 g/dLNormal3.3 - 5.0 gm/dLFT RemisolAlbumin/Globulin [Mass [...] [Mass/Vol]8.8 mg/dLLow8.9 - 11.1 mg/dLFTMC RemisolChloride [Moles/Vol]100 mmol/YNbx579 - 111 mmol/LFTMC RemisolCO2 [Moles/Vol]24 mmol/L Yukifs63 - 31 mmol/LFTMC RemisolCreatinine [Mass/Vol]1.0 mg/dLNormal0.5 - 1.3 mg/dLFTMC RemisolGFR/1.73 sq M.predicted among blacks MDRD (S/P/Bld) [Vol rate/Area]mL/min/1.73 s1Dxvssx>=59mL/min/1.73 m2FT[facility] Chem SGFR/1.73 sq M.predicted among non-blacks MDRD (S/P/Bld) [Vol rate/Area]mL/min/1.73 a3Clgpbf >=59mL/min/1.73 m2FT[facility] Chem SGlobulin (S) [Mass/Vol]3.6 g/dLNormal1.4 - 4.0 gm/dLFTMC RemisolGlucose [Mass/Vol]104 mg/qMRncqpt49 - 199 mg/dLFTMC Remisol Potassium [Moles/Vol]3.6 mmol/LNormal3.5 - 5.3 mmol/LFTMC RemisolProtein [Mass/Vol]7.9 g/dLHigh6.0 - 7.8 gm/dLFTMC RemisolSodium [Moles/Vol]134 mmol/LLow 135 - 145 mmol/LFTMC RemisolUrea nitrogen [Mass/Vol]10 mg/dLNormal5 - 21 mg/dL [facility] RemisolUrea nitrogen/Creatinine [Mass ratio]10 mg/rlXbzqei81 - 20FTMC RemisolHEMATOLOGYOrdered By: Amairani Jenkins on 35-33-3419Haqcuoihpwgw Ql (Bld) Present (01/31/23 2:10 PM)NormalFTMC HemeManSSErythrocyte [...] fLNormal6.4 - 10.8 fLFTMC HemeAutoSSPlatelets (Bld) [#/Vol]471.0 E9/LWlgrwe448.0 - 500.0 E9/LFTMC HemeAutoSSRBC (Bld) [#/Vol]4.3 E12/LNormal4.3 [...] - 0.5 E9/L [facility] HemeAutoSSLymphocytes/100 WBC (Bld)31.7 %Nvzpxw44.0 - 50.0 %[facility] HemeAutoSS Lymphocytes/Leukocytes Auto (Bld) [Pure # fraction]2.4 E9/LNormal1.0 - 4.0 E9/L [facility] HemeAutoSSMonocytes/100 WBC (Bld)9.1 %Normal4.0 - 14.0 %[facility] HemeAutoSS Monocytes/Leukocytes Auto (Bld) [Pure # fraction]0.7 E9/LNormal0.2 - 1.0 E9/L [facility] HemeAutoSSNeutrophils/100 WBC (Bld)57.4 %Sffnyx67.0 - 75.0 %[facility] HemeAutoSS Neutrophils/Leukocytes Auto (Bld) [Pure # fraction]4.3 E9/LNormal2.0 - 7.5 E9/L [facility] HemeAutoSSSEROLOGYOrdered By: Patricia Newton on 55-73-9050ZEL.beta subunit (U) [Moles/Vol]NegativeNormalFT Man SeroURINALYSISOrdered By: Solomon Leal on 22-29-9101Ijgefvalw Ql (U)Negative (01/31/23 1:57 PM)NormalNegativeFTMC UA Auto SSClarity (U)Clear (01/31/23 1:57 PM)NormalClearFTMC UA Auto SSColor (U)Yellow (01/31/23 1:57 PM)NormalYellowFTMC UA Auto SSEpithelial cells.squamous LM.HPF (Urine sed) [#/Area]3-4 /HPFNormal0-2/HPFFTMC UA Auto SSGlucose Test strip (U) [Mass/Vol]Negative (01/31/23 1:57 PM)NormalNegativeFT UA Auto SSHemoglobin Ql (U)Negative (01/31/23 1:57 PM)NormalNegativeFTMC UA Auto SSKetones (U) [Mass/Vol]Negative (01/31/23 1:57 PM)NormalNegativeFT UA Auto SSLithium.plasma/[place].RBC (Bld) [Mass ratio]0-3 /HPFNormal0-3/HPFFTMC UA Auto SSNitrite Ql (U)Negative (01/31/23 1:57 PM)NormalNegativeJ[facility] UA Auto SSpH (U)6.0 *NA* (01/31/23 1:57 PM)Invalid Interpretation Code5.0 - 9.0[facility] UA Auto SSProtein (U) [Mass/Vol]Negative (01/31/23 1:57 PM)NormalNegativeJ[facility] [place] UA Auto SSSpecific gravity (U) [Rel density] 1.010 *NA* (01/31/23 1:57 PM)Invalid Interpretation Code1.005 - 1.030[facility] UA Auto SSUA Spec DescClean Catch (01/31/23 1:57 PM)NormalJ[facility] [place] UA Auto SSUrobilinogen Qn (U)0.0234156 {Aspen'U}/dL Normal0.0 - 1.0 EU/dLJIM [facility]ERR[facility] [place] UA Auto SSWBC Auto Ql (U)Negative (01/31/23 1:57 PM)NormalNegativeJ[facility] UA Auto SSWBC LM.HPF (Urine sed) [#/Area]0-5 /HPFNormal0-5/HPFJIM [facility] [place] UA Auto SSBLOOD BANKOrdered By: Teena Quiroz on 06-94-2195YQR/Rh InterpPositiveInvalid Interpretation CodeJIM [facility] BB SubsectionABSC Gel InterpNegative (12/30/22 11:28 AM)NormalJ[facility] BB SubsectionCHEMISTRYOrdered By: SYSTEM SYSTEM on 87-48-5148Reiai gap [Moles/Vol]12 mmol/LNormal6 - 16 mEq/LFTMC RemisolCalcium [Mass/Vol]8.6 mg/dLLow8.9 - 11.1 mg/dLFTMC RemisolChloride [Moles/Vol]103 mmol/L Jpmrpl097 - 111 mmol/LFTMC RemisolCO2 [Moles/Vol]26 mmol/YVxloxs18 - 31 mmol/L [facility] RemisolCreatinine [Mass/Vol]0.9 mg/dLNormal0.5 - 1.3 mg/dLFTMC Remisol GFR/1.73 sq M.predicted among blacks MDRD (S/P/Bld) [Vol rate/Area]mL/min/1.73 l7Fiuodo>=59mL/min/1.73 m2FT Chem SGFR/1.73 sq M.predicted among non-blacks MDRD (S/P/Bld) [Vol rate/Area]mL/min/1.73 w6Johbon>=59mL/min/1.73 m2FT Chem S Glucose [Mass/Vol]105 mg/xIJownqd06 - 199 mg/dLFTMC RemisolPotassium [Moles/Vol] 3.8 mmol/LNormal3.5 - 5.3 mmol/LFTMC RemisolSodium [Moles/Vol]137 mmol/LNormal 135 - 145 mmol/LFTMC RemisolUrea nitrogen [Mass/Vol]17 mg/dLNormal5 - 21 mg/dL [facility] RemisolUrea nitrogen/Creatinine [Mass ratio]19 mg/ahUojbkn71 - 20FT[facility] RemisolCOAGULATIONOrdered By: Courtney Tang on 23-08-2670nPXP Coag (PPP) [Time]31.5 bYfepgo83.1 - 36.5 second(s)[facility] Auto CoagINR Coag (PPP) [Relative time]1.0 {INR}Invalid Interpretation CodeFTMC Auto CoagPT Coag (PPP) [Time]11.7 sNormal 9.4 - 12.5 second(s)[facility] Auto CoagHEMATOLOGYOrdered By: SYSTEM SYSTEM on 02-29-0481Iurfsxeyr/100 WBC (Bld)1.2 %Normal0.0 - 2.0 %[facility] HemeAutoSS Basophils/Leukocytes Auto (Bld) [Pure # fraction]0.1 E9/LNormal0.0 - 0.2 E9/L [facility] HemeAutoSSEosinophils/100 WBC (Bld)4.1 %Normal0.0 - 8.0 %[facility] HemeAutoSS Eosinophils/Leukocytes Auto (Bld) [Pure # fraction]0.2 E9/LNormal0.0 - 0.5 E9/L [facility] HemeAutoSSLymphocytes/100 WBC (Bld)40.5 %Iblfqk50.0 - 50.0 %[facility] HemeAutoSS Lymphocytes/Leukocytes Auto (Bld) [Pure # fraction]2.3 E9/LNormal1.0 - 4.0 E9/L [facility] HemeAutoSSMonocytes/100 WBC (Bld)7.6 %Normal4.0 - 14.0 %[facility] HemeAutoSS Monocytes/Leukocytes Auto (Bld) [Pure # fraction]0.4 E9/LNormal0.2 - 1.0 E9/L [facility] HemeAutoSSNeutrophils/100 WBC (Bld)46.6 %Hitsgd05.0 - 75.0 %[facility] HemeAutoSS Neutrophils/Leukocytes Auto (Bld) [Pure # fraction]2.6 E9/LNormal2.0 - 7.5 E9/L [facility] HemeAutoSSHEMATOLOGYOrdered By: Courtney Case on 70-10-8610Zrodpswpnop distribution width (RBC) [Ratio]14.1 %Qjztuv45.9 - 14.2 %[facility] HemeAutoSS Hematocrit (Bld) [Volume fraction]31.5 %Low34.0 - 46.0 %[facility] HemeAutoSS Hemoglobin (Bld) [Mass/Vol]10.0 g/dLLow12.0 - 16.0 gm/dLFTMC HemeAutoSSMCH (RBC) [Entitic mass]25.3 pgLow27.0 - 34.0 pgFTMC HemeAutoSSMCHC (RBC) [Mass/Vol]31.8 g/pQOkcipf65.4 - 36.0 gm/dLFTMC HemeAutoSSMCV (RBC) [Entitic vol]79.6 fLLow80.0 - 100.0 fLFTMC HemeAutoSSPlatelet mean volume (Bld) [Entitic vol]7.7 fLNormal6.4 - 10.8 fLFTMC HemeAutoSSPlatelets (Bld) [#/Vol]264.0 E9/CTnioun953.0 - 500.0 E9/LFTMC HemeAutoSSRBC (Bld) [#/Vol]4.0 E12/LLow4.3 - 5.9 E12/LFTMC HemeAutoSS WBC corrected for nucl RBC Auto (Bld) [#/Vol]5.7 E9/LNormal4.0 - 11.0 E9/LFTMC HemeAutoSSURINALYSISOrdered By: Courtney Case on 00-13-7070Dqnawnpv LM Ql (Urine sed)Trace /HPFNormalTrace/HPFFTMC UA Auto SSBilirubin Ql (U)Negative (12/30/22 8:53 AM)NormalNegativeJ[facility] UA Auto SSClarity (U)Clear (12/30/22 8:53 AM)NormalClearFINTEGR[facility] [place] [facility] Auto SSColor (U)Yellow (12/30/22 8:53 AM)NormalYellowJIM [facility]ERR[facility] [place] UA Auto SSEpithelial cells.squamous LM.HPF (Urine sed) [#/Area]0-2 /HPFNormal0-2/HPFJ[facility] [place] UA Auto SSGlucose Test strip (U) [Mass/Vol]Negative (12/30/22 8:53 AM)NormalNegativeJ[facility] UA Auto SSHemoglobin Ql (U)2+ *ABN* (12/30/22 8:53 AM)Invalid Interpretation CodeNegativeJ[facility] [place] UA Auto SSKetones (U) [Mass/Vol]Negative (12/30/22 8:53 AM)NormalNegativeJ[facility] [place] UA Auto SSLithium.plasma/[place].RBC (Bld) [Mass ratio]4-20 /HPFNormal0-3/HPFJIM [facility] [place] UA Auto SSNitrite Ql (U)Negative (12/30/22 8:53 AM)NormalNegativeJ[facility] UA Auto SSpH (U)6.0 *NA* (12/30/22 8:53 AM)Invalid Interpretation Code5.0 - 9.0[facility] UA Auto SSProtein (U) [Mass/Vol]Negative (12/30/22 8:53 AM)NormalNegativeJ[facility] [place] UA Auto SSSpecific gravity (U) [Rel density] 1.025 *NA* (12/30/22 8:53 AM)Invalid Interpretation Code1.005 - 1.030[facility] UA Auto SSUA Spec DescClean Catch (12/30/22 8:53 AM)NormalJ[facility] [place] UA Auto SSUrobilinogen Qn (U)0.1375605 {[place]en'U}/dL Normal0.0 - 1.0 EU/dLJ[facility] [place] UA Auto SSWBC Auto Ql (U)Negative (12/30/22 8:53 AM)NormalNegativeJ[facility] UA Auto SSWBC LM.HPF (Urine sed) [#/Area]0-5 /HPFNormal0-5/HPFJIM [facility] [place] UA Auto SSOffice Visiton 71-14-5358Eapydq-up [id number] Juhi Cope 1995 F Date Provider Department Center 12/05/2022 [id number], GINA [facility] W[facility] None Chart Close Cosign Required by: Opal Ross MD[VARUND] No family history on file Level of Service:83313 MS OFFICE/OUTPATIENT ESTABLISHED LOW MDM 20-29 MIN (GE,GC) Reason for Visit and Comments: Blood Pressure Check [299][facility] SHSProgress Noteon 29-90-6605Vkutykow Note Attestation signed by Opal Ross MD [...] about 4 weeks (around 01/02/2023) for Visit .[facility] SHSProgress NoteVital signs BP 127/87 Weight 149.2lb Pulse 106 Temp 96.7NoSt. [facility] SHSProgress Noteon 61-19-3321Nsgguguj Note Late entry due to patient care. Resident Lacy notified of B.P 138/96 heart rate 119 around 1236 see flowsheet. Also notified checked in 1 hour via orders and B.P 143/87 pulse 111. Clarified if should check in 1 hour according to orders. . Also notified patient has discharge order in. Resident Lacy states No on rechecking. Ok to discharge. Will make patient aware.[facility] SHSProgress NotePOSTPARTUM VAGINAL DELIVERY POST DAY [...] 12/02/2022, 5:09 [facility]42on 32-83-18412353.5mm flanges given to patient. Encouraged her to call for observation of pump session and smaller flanges. Martha in NICU to assist with personal pump.[facility] CenterCARECOORDon 60-57-7333GNRYXSROT32 year old admitted for induction of labor [...] to home. Denies any concerns at this time.[facility] SHSProgress Noteon 45-92-8478Xwjxpfcv Note NOTE - VAGINAL DELIVERY POST DAY [...] with more than 50% of the total vajo-em-qimt time of the visit in counseling/coordination of care. , 9:22 [facility] MQG87rl 30-12-243238Wybrd given to patient and educated how to use and to bring to Health system AVF63Ymnacp pump use indicated for this pt. 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 Bowden; Dr. Kramer Information: Information for the patient's : Francie Cope [[id number]] Information for the patient's : Francie Cope [[id number]] Description: normal Meconium Noted: No Anesthesia: epidural [...] Kramer, DO 11/30/2022, 4:04 AMN SHSProgress Noteon 31-31-8601Fuzgbmfy NoteFoley catheter inserted by Andi Bacon RN, catheter drained and emptied for 900cc. Catheter secured to leg.[facility] SHSProgress NotePatient up to bathroom but remains unable to void. Bladder scan completed and reads >570. Sent secure message to Dr. Ruiz letting her know the above. Instructed to place chauhan catheter.[facility] CenterProgress Note Secure message sent to Dr. Gamez stating patient is having difficulty voiding, patient's perineum is very swollen, and that patient was straight cathed for 950ml at noon. Received order for benadryl to help with swelling. [facility] CenterProess NoteNutrition rescreen completed. Chart reviewed. Patient to be monitored and followed by the diet line service technician. Suad Samuels, DTOlean General Hospital SHSProgress NotePatient unable to void, last straight cathed at 0400. Bladder scan obtained for >928 ml, fundus +2 and shifted to right. Patient straight cathed on attempt x2 by Andi Bacon RN for 950cc. Will continue to monitor.[facility] SHSCAREPLNon 69-46-6760PZWJDBTSlk patient will continue to make cervical change. Clotilde Mg, RNNoSt. Joseph's Hospital SHSLaboratory - Hematology and Cell countsOrdered By: Lucrecia Cervantes on 70-10-3714Ryckejarg (Bld) [#/Vol]386 10*3/uL140 - 440 10*3/uLSublanchard valley health system [facility] HealthPlatelets (Bld) [#/Vol]Ordered By: Lucrecia Cervantes on 56-54-4542Tykwbtogcdadjr and review of laboratory resultsNormal [facility]. agalactiae DNA TENA+probe Ql (Unsp spec)on 11-29-2022 Group B Strep ScreenNot detectedNot [facility] HealthInterpretation and review of laboratory resultsNoUniversity Hospitals Cleveland Medical CenterMethodology: real-time PCRSCHI Health Mercy Council BluffsABO and Rh group Confirm Nom (Bld)on [id number] group Nom (Bld)OSumma HealthD Ag Ql (RBC)PositiveSumSouthview Medical Center HealthBlood type and Crossmatch panel (Bld)on 85-99-6276AQR group Nom (Bld)OSumma HealthBlood group antibody screen GEL QlNegativeSumma HealthD Ag Ql (RBC)PositiveSumtx Healthmma HealthCBC panel Auto (Bld)Ordered By: Lauren Ayers on 00-38-8461Dwygtchymwo distribution width (RBC) [Ratio]13.3 %11.5 - 14.5 %[facility]a HealthHematocrit (Bld) [Volume fraction]33.8 %Low35.0 - 47.0 %[facility]ma HealthHemoglobin (Bld) [Mass/Vol] 11.2 g/dLLow11.7 - 16.0 g/dLSumma HealthInterpretation and review of laboratory resultsAbnormalSMercy Health St. Vincent Medical CenterH (RBC) [Entitic mass]28.0 pg26.0 - 34.[address] Vincent Medical CenterHC (RBC) [Mass/Vol]33.1 %32.0 - 36.0 %[facility]a HealthMCV (RBC) [Entitic vol]84.4 fL80.0 - 98.0 fLSumma HealthPlatelet mean volume (Bld) [Entitic vol]8.3 fL7.4 - 12.4 fLSumma HealthPlatelets (Bld) [#/Vol]319 10*3/uL140 - 440 10*3/uL Sum[facility] HealthRBC (Bld) [#/Vol]4.00 10*6/uL3.8 - 5.20 10*6/uLSumma HealthWBC (Bld) [#/Vol]18.9 10*3/uLHigh3.6 - 10.7 10*3/uLSumma HealthUpper Valley Medical Center HealthComprehensive metabolic 1998 panelon 23-67-9892Iujlxgm [Mass/Vol]3.9 g/dL3.5 - 5.0 g/dLSumma HealthALP [Catalytic [...] HealthGFR/1.73 sq M.predicted MDRD (S/P/Bld) [Vol rate/Area]- [facility] HospitalComment on above: Calculation based on the Chronic Kidney Disease Epidemiology Collaboration (CKD- EPI) equation refitwithout adjustment for raceGlucose [Mass/Vol]158 mg/jQWrah16 - 100 mg/dLSumma HealthInterpretation and review of laboratory resultsAbnormal [facility] HealthPotassium [Moles/Vol]4.1 mmol/L3.5 - 5.1 mmol/LSumma HealthProtein [Mass/Vol]7.5 g/dL6.3 - 8.2 g/dLSumma HealthSodium [Moles/Vol]133 mmol/ULhd410 - 145 mmol/LSumma HealthUrea nitrogen [Mass/Vol]5 mg/dLLow7 - 17 mg/dLSumma HealthSumma HealthLaboratory - Hematology and Cell countsOrdered By: Shruthi Fontana on 80-71-4295Paspvzzge (Bld) [#/Vol]335 10*3/uL140 - 440 10*3/uLSumma HealthPlatelets (Bld) [#/Vol]Ordered By: Shruthi Fontana on 11-28-2022 Interpretation and review of laboratory resultsNormMarietta Memorial Hospital Health CHEMISTRYOrdered By: Xiami Radio on 32-21-5368Bfdb T4 index Calc [Mass/Vol] 5.98 ng/dLNormal5.90 - [...] Code0.1 - 0.9 mg/dL FT RemisolChloride [Moles/Vol]102 mmol/GPlkmll134 - 111 mmol/LFTMC RemisolCO2 [Moles/Vol]18 mmol/LLow21 - 31 mmol/LFTMC RemisolCreatinine [Mass/Vol]0.6 mg/dL Normal0.5 - 1.3 mg/dLFTMC RemisolGFR/1.73 sq M.predicted among blacks MDRD (S/P/Bld) [Vol rate/Area]mL/min/1.73 j1Uuwfke>=59mL/min/1.73 m2FT[facility] Chem S GFR/1.73 sq M.predicted among non-blacks MDRD (S/P/Bld) [Vol rate/Area] mL/min/1.73 a7Jnacdw>=59mL/min/1.73 m2[facility] Chem SGlobulin (S) [Mass/Vol]4.0 g/dL Normal1.4 - 4.0 gm/dLJ[facility] [place] RemisolPotassium [Moles/Vol]3.7 mmol/LNormal3.5 - 5.3 mmol/LFTMC RemisolProtein [Mass/Vol]7.1 g/dLNormal6.0 - 7.8 gm/dLJ[facility] [place] Remisol Sodium [Moles/Vol]132 mmol/RIxd551 - 145 mmol/LFTMC RemisolUrate [Mass/Vol]4.9 mg/dLNormal2.2 - 7.4 mg/dLJ[facility] [place] RemisolUrea nitrogen [Mass/Vol]7 mg/dLNormal5 - 21 mg/dLJ[facility] [place] RemisolCOAGULATIONOrdered By: Amairani Jenkins on 02-75-9559tKXY Coag (PPP) [Time]25.3 eJkowpi43.1 - 36.5 second(s)[facility] Auto Coag Fibrin+Fibrinogen fragments (S) [Mass/Vol]>10 and <40 *ABN* (11/27/22 3:14 PM)Invalid Interpretation Code<10[facility] Man SeroFibrinogen Coag (PPP) [Mass/Vol]539 mg/mSCuuy030 - 393 mg/dLJIM [facility] [place] Auto CoagINR Coag (PPP) [Relative time]0.9 {INR}Invalid Interpretation CodeJ[facility]ERR[facility] [place] Auto CoagPT Coag (PPP) [Time]10.1 sNormal9.4 - 12.5 second(s)[facility] Auto CoagHEMATOLOGYOrdered By: Raquel Arteaga on 68-40-9628Qziezotzexz distribution width (RBC) [Ratio]12.9 %Aarppx93.9 - 14.2 % [facility] HemeAutoSSHematocrit (Bld) [Volume fraction]34.2 %Urmbby14.0 - 46.0 %[facility] HemeAutoSSHemoglobin (Bld) [Mass/Vol]11.0 g/dLLow12.0 - 16.0 gm/dLJ[facility] HemeAutoSSMCH (RBC) [Entitic mass]27.3 prAuhwrp04.0 - 34.0 pgFTMC HemeAutoSSMCHC (RBC) [Mass/Vol]32.3 g/zJMrnpru91.4 - 36.0 gm/dLFT HemeAutoSSMCV (RBC) [Entitic vol]84.6 pKMcycfr78.0 - 100.0 fLFT HemeAutoSSPlatelet mean volume (Bld) [Entitic vol]8.2 fLNormal6.4 - 10.8 fLFT HemeAutoSSPlatelets (Bld) [#/Vol]273.0 E9/XRkxaza589.0 - 500.0 E9/LFC HemeAutoSSRBC (Bld) [#/Vol]4.0 E12/LLow4.3 - 5.9 E12/LFINTEGRIS [facility]AMI [facility] [place] HemeAutoSSWBC corrected for nucl RBC Auto (Bld) [#/Vol]15.7 E9/LHigh4.0 - 11.0 E9/LFC HemeAutoSSComment on above:Result Comment: Slide reviewed by ts Unable to obtain accurate platelet count due to platelet clumping. Platelet count estimate appears normal on slide..URINALYSISOrdered By: Amairani Jenkins on 84-13-3932Jjrtqdyvv Ql (U)Negative (11/27/22 1:55 PM)NormalNegativeJ[facility] UA Auto SSClarity (U)Clear (11/27/22 1:55 PM)NormalClearFINTEGRIS [facility]AMI [facility] [place] UA Auto SSColor (U)Yellow (11/27/22 1:55 PM)NormalYellowFT UA Auto SSEpithelial cells.squamous LM.HPF (Urine sed) [#/Area]3-4 /HPFNormal0-2/HPFFTMC UA Auto SSGlucose Test strip (U) [Mass/Vol]Negative (11/27/22 1:55 PM)NormalNegativeJ[facility] UA Auto SSHemoglobin Ql (U)1+ *ABN* (11/27/22 1:55 PM)Invalid Interpretation CodeNegativeFT UA Auto SSKetones (U) [Mass/Vol]Negative (11/27/22 1:55 PM)NormalNegativeJ[facility] UA Auto SSLithium.plasma/[place].RBC (Bld) [Mass ratio]4-20 /HPFNormal0-3/HPFJ[facility] [place] UA Auto SSNitrite Ql (U)Negative (11/27/22 1:55 PM)NormalNegativeJ[facility] [place] UA Auto SSpH (U)6.5 *NA* (11/27/22 1:55 PM)Invalid Interpretation Code5.0 - 9.0[facility] UA Auto SSProtein (U) [Mass/Vol]Negative (11/27/22 1:55 PM)NormalNegativeJ[facility] UA Auto SSSpecific gravity (U) [Rel density] 1.010 *NA* (11/27/22 1:55 PM)Invalid Interpretation Code1.005 - 1.030[facility] UA Auto SSUA Spec DescClean Catch (11/27/22 1:55 PM)NormalJ[facility] [place] UA Auto SSUrobilinogen Qn (U)0.1211954 {Aspen'U}/dL Normal0.0 - 1.0 EU/dLJ[facility] UA Auto SSWBC Auto Ql (U)Negative (11/27/22 1:55 PM)NormalNegativeJ[facility] [place] UA Auto SSWBC LM.HPF (Urine sed) [#/Area]0-5 /HPFNormal0-5/HPFJIM [facility]ALIAFERRO [facility] [place] UA Auto SSCHEMISTRYOrdered By: SYSTEM SYSTEM on 07-14-2022 Albumin [Mass/Vol]3.6 g/dLNormal3.3 - 5.0 gm/dLJIM [facility]AL[facility] [place] RemisolAlbumin/Globulin [Mass ratio]1.1 {ratio}Normal1.1 - 2.2[facility] RemisolALP [Catalytic activity/Vol]41 [iU]/aLapiby42 - 98 Int._Unit/LFT[facility] RemisolALT No additional P-5'-P [Catalytic activity/Vol]19 [iU]/dNormal6 - 46 Int._Unit/L[facility] RemisolAnion gap [Moles/Vol] 11 mmol/LNormal6 - 16 mEq/L[facility] RemisolAST [Catalytic activity/Vol]21 [iU]/d Normal5 - 43 Int._Unit/L[facility] RemisolBilirubin [Mass/Vol]0.7 mg/dLNormal0.0 - 1.1 mg/dLJIM [facility] [place] RemisolBilirubin.direct [Mass/Vol]0.1 mg/dLNormal0.1 - 0.4 mg/dLFT[facility] RemisolBilirubin.indirect [Mass or moles/Vol]0.6 mg/dLNormal0.1 - 0.9 mg/dLFT[facility] RemisolCalcium [Mass/Vol]8.9 mg/dLNormal8.9 - 11.1 mg/dLFT[facility] RemisolChloride [Moles/Vol]107 mmol/LTugqgk888 - 111 mmol/LFT[facility] RemisolCO2 [Moles/Vol]22 mmol/L Sienog06 - 31 mmol/LFT[facility] RemisolCreatinine [Mass/Vol]0.6 mg/dLNormal0.5 - 1.3 mg/dLFT[facility] RemisolGFR/1.73 sq M.predicted among blacks MDRD (S/P/Bld) [Vol rate/Area]mL/min/1.73 b2Wlgjvu>=59mL/min/1.73 m2[facility] Chem SGFR/1.73 sq M.predicted among non-blacks MDRD (S/P/Bld) [Vol rate/Area]mL/min/1.73 b2Aqbofv >=59mL/min/1.73 m2[facility] Chem SGlobulin (S) [Mass/Vol]3.3 g/dLNormal1.4 - 4.0 gm/dLFT[facility] RemisolGlucose [Mass/Vol]99 mg/hPLcpsdc25 - 199 mg/dLFT[facility] Remisol Potassium [Moles/Vol]3.5 mmol/LNormal3.5 - 5.3 mmol/LFT[facility] RemisolProtein [Mass/Vol]6.9 g/dLNormal6.0 - 7.8 gm/dLFT[facility] RemisolSodium [Moles/Vol]136 mmol/L Ipassc588 - 145 mmol/LFT[facility] RemisolUrea nitrogen [Mass/Vol]8 mg/dLNormal5 - 21 mg/dLFT[facility] RemisolUrea nitrogen/Creatinine [Mass ratio]13 mg/bjHmrnxb80 - 20[facility] RemisolHEMATOLOGYOrdered By: SYSTEM SYSTEM on [id number]/100 WBC (Bld) 0.3 %Normal0.0 - 2.0 %[facility] [...] 7.5 E9/LFT[facility] HemeAutoSSHEMATOLOGYOrdered By: Teena Quiroz on [id number] distribution width (RBC) [Ratio]12.9 %Normal 10.9 - 14.2 %[facility] HemeAutoSSHematocrit (Bld) [Volume fraction]33.6 %Low34.0 - 46.0 %[facility] HemeAutoSSHemoglobin (Bld) [Mass/Vol]11.5 g/dLLow12.0 - 16.0 gm/dL [facility] HemeAutoSSMCH (RBC) [Entitic mass]28.5 jlTteaem06.0 - 34.0 pgFTMC HemeAutoSSMCHC (RBC) [Mass/Vol]34.1 g/hTDicehj90.4 - 36.0 gm/dLFTMC HemeAutoSS MCV (RBC) [Entitic vol]83.5 lAUfrmxl14.0 - 100.0 fLFTMC HemeAutoSSPlatelet mean volume (Bld) [Entitic vol]8.1 fLNormal6.4 - 10.8 fLJIM [facility]ALIAFERR[facility] [place] HemeAutoSSPlatelets (Bld) [#/Vol]271.0 E9/YOxmjdk368.0 - 500.0 E9/[facility] HemeAutoSSRBC (Bld) [#/Vol] 4.0 E12/LLow4.3 - 5.9 E12/[facility] HemeAutoSSWBC corrected for nucl RBC Auto (Bld) [#/Vol]13.9 E9/LHigh4.0 - 11.0 E9/[facility] HemeAutoSSURINALYSISOrdered By: Deirdre Gilliam on 55-95-7379Jimzqodl LM Ql (Urine sed)Trace /HPFNormalTrace/HPFJIM [facility] [place] UA Auto SSBilirubin Ql (U)Negative (07/14/22 5:00 AM)NormalNegativeJIM [facility] [place] UA Auto SSClarity (U)Clear (07/14/22 5:00 AM)NormalClearFINTEGRIS [facility] [place] [facility] Auto SSColor (U)Yellow (07/14/22 5:00 AM)NormalYellowJIM [facility]IA[facility]ERR[facility] [place] UA Auto SSEpithelial cells.squamous LM.HPF (Urine sed) [#/Area]3-4 /HPFNormal0-2/HPFJIM [facility] [place] UA Auto SSGlucose Test strip (U) [Mass/Vol]Negative (07/14/22 5:00 AM)NormalNegativeJIM [facility] [place] UA Auto SSHemoglobin Ql (U)Trace *ABN* (07/14/22 5:00 AM)Invalid Interpretation CodeNegativeJIM [facility] [place] UA Auto SSKetones (U) [Mass/Vol]Negative (07/14/22 5:00 AM)NormalNegativeJIM [facility] [place] UA Auto SSLithium.plasma/[place].RBC (Bld) [Mass ratio]0-3 /HPFNormal0-3/HPFJIM [facility]ERR[facility] [place] UA Auto SSMucus Ql (Urine sed)Trace (07/14/22 5:00 AM)NormalJIM [facility] [place] UA Auto SSNitrite Ql (U)Negative (07/14/22 5:00 AM)NormalNegativeJIM [facility] [place] UA Auto SSpH (U)6.0 *NA* (07/14/22 5:00 AM)Invalid Interpretation Code5.0 - 9.0J[facility] UA Auto SSProtein (U) [Mass/Vol]Negative (07/14/22 5:00 AM)NormalNegativeJIM [facility] [place] UA Auto SSSpecific gravity (U) [Rel density] 1.020 *NA* (07/14/22 5:00 AM)Invalid Interpretation Code1.005 - 1.030[facility] [place] UA Auto SSUA Spec DescClean Catch (07/14/22 5:00 AM)NormalJIM [facility] [place] UA Auto SSUrobilinogen Qn (U)0.6562309 {Aspen'U}/dLNormal0.0 - 1.0 EU/dLJIM [facility] [place] UA Auto SSWBC Auto Ql (U)Negative (07/14/22 5:00 AM)NormalNegativeJ[facility] [place] UA Auto SSWBC LM.HPF (Urine sed) [#/Area]0-5 /HPFNormal0-5/HPFJIM [facility]AL[facility]ERR[facility] [place] UA Auto SSCHEMISTRYOrdered By: SYSTEM SYSTEM on 48-52-4323Oldtcat [Mass/Vol]4.4 g/dLNormal3.3 - 5.0 gm/dLFTMC Remisol Albumin/Globulin [Mass ratio]1.1 {ratio}Normal1.1 - 2.2[facility] RemisolALP [Catalytic activity/Vol]64 [iU]/fNdtnoz42 - 98 Int._Unit/LFTMC RemisolALT No additional P-5'-P [Catalytic activity/Vol]107 [iU]/dHigh6 - 46 Int._Unit/LFTMC RemisolAST [Catalytic activity/Vol]63 [iU]/dHigh5 - 43 Int._Unit/LFTMC Remisol Bilirubin [Mass/Vol]1.5 mg/dLHigh0.0 - 1.1 mg/dLFTMC RemisolBilirubin.direct [Mass/Vol]0.2 mg/dLNormal0.1 - 0.4 mg/dLFTMC RemisolBilirubin.indirect [Mass or moles/Vol]1.3 mg/dLHigh0.1 - 0.9 mg/dLFTMC RemisolCholesterol [Mass/Vol]193 mg/eELoczib923 - 200 mg/dLFTMC RemisolCholesterol in HDL [Mass/Vol]64 mg/dL Invalid Interpretation CodeFTMC RemisolCholesterol in LDL [Mass/Vol]116 mg/dL Normal<=129mg/dLFTMC RemisolCholesterol in VLDL [Mass/Vol]13 mg/dLNormal7 - 40 mg/dLFTMC RemisolGlobulin (S) [Mass/Vol]3.9 g/dLNormal1.4 - 4.0 gm/dLFTMC RemisolProtein [Mass/Vol]8.3 g/dLHigh6.0 - 7.8 gm/dLFTMC RemisolTriglyceride [Mass/Vol]67 mg/dLNormal<=149mg/dLFTMC RemisolCOAGULATIONOrdered By: Courtney Case on 21-74-5576TBE Coag (PPP) [Relative time]1.0 {INR}Invalid Interpretation Code [facility] Auto CoagPT Coag (PPP) [Time]12.4 mWzdkyt37.2 - 12.9 second(s)[facility] Auto CoagHEMATOLOGYOrdered By: SYSTEM SYSTEM on 56-79-8923Xydvevkiu/100 WBC (Bld)0.7 %Normal0.0 - 2.0 %[facility] HemeAutoSSBasophils/Leukocytes Auto (Bld) [Pure # fraction]0.0 E9/LNormal0.0 - 0.2 E9/LFTMC HemeAutoSSEosinophils/100 WBC (Bld)3.2 %Normal0.0 - 8.0 %[facility] HemeAutoSSEosinophils/Leukocytes Auto (Bld) [Pure # fraction]0.2 E9/LNormal0.0 - 0.5 E9/LFTMC HemeAutoSSLymphocytes/100 WBC (Bld) 31.9 %Bjcpfs47.0 - 50.0 %[facility] HemeAutoSSLymphocytes/Leukocytes Auto (Bld) [Pure # fraction]1.9 E9/LNormal1.0 - 4.0 E9/LFTMC HemeAutoSSMonocytes/100 WBC (Bld)9.1 %Normal4.0 - 14.0 %[facility] HemeAutoSSMonocytes/Leukocytes Auto (Bld) [Pure # fraction]0.5 E9/LNormal0.2 - 1.0 E9/LFTMC HemeAutoSSNeutrophils/100 WBC (Bld) 55.1 %Gpszre69.0 - 75.0 %[facility] HemeAutoSSNeutrophils/Leukocytes Auto (Bld) [Pure # fraction]3.3 E9/LNormal2.0 - 7.5 E9/LFTMC HemeAutoSSHEMATOLOGYOrdered By: Chivo Ward on 45-32-6734Qnvybpigrer distribution width (RBC) [Ratio]12.9 % Pzemhj23.9 - 14.2 %[facility] HemeAutoSSHematocrit (Bld) [Volume fraction]40.1 %Normal 34.0 - 46.0 %[facility] HemeAutoSSHemoglobin (Bld) [Mass/Vol]13.2 g/cIKdwaiu43.0 - 16.0 gm/dLFTMC HemeAutoSSMCH (RBC) [Entitic mass]27.7 kfYjtzvh52.0 - 34.0 pgFTMC HemeAutoSSMCHC (RBC) [Mass/Vol]32.8 g/qWCdacos38.4 - 36.0 gm/dLFTMC HemeAutoSS MCV (RBC) [Entitic vol]84.3 oJWcvoht67.0 - 100.0 fLFTMC HemeAutoSSPlatelet mean volume (Bld) [Entitic vol]8.5 fLNormal6.4 - 10.8 fLFTMC HemeAutoSSPlatelets (Bld) [#/Vol]299.0 E9/UWyznum543.0 - 500.0 E9/LFTMC HemeAutoSSRBC (Bld) [#/Vol] 4.8 E12/LNormal4.3 - 5.9 E12/LFTMC HemeAutoSSWBC corrected for nucl RBC Auto (Bld) [#/Vol]5.9 E9/LNormal4.0 - 11.0 E9/LFC HemeAutoSSLMPon 36-30-0110Uarc risk assessmenta) No falls within the last eynaCH-MGEJE-Kovdir 320 Work Phone: Last menstrual period start tthrtwonjlII-MMWTR-Lwjjhf 320 Work Phone: Tobacco use status CPHSb) ZoMC-ZHDEB-Xqqhrn 320 Work Phone: OB/LEGAL DEPARTMENT MANAGER - Office Visiton 55-93-4967CZ/LEGAL DEPARTMENT MANAGER - Office VisitDiagnoses/Problems Assessed Endometriosis (617.9) (N80.9) Orders Start: Orilissa 200 MG Oral Tablet; take 1 tablet by mouth twice a day Provider Impressions 26 yo 1. 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 [employer] History of Present Zohnfhe26 yo presents as a follow up for [...] again engaged x 1 year working at [employer] [place] Review of Systems Constitutional: no fever, no [...] hours Vitals Vital Signs Recorded: 09Feb2022 11:41AM Pkfjiuxb354 Zxhfstcuk68 Height5 ft 2 in Vuopmo098 lb BMI Xbbrqsytkb83.51 kg/m2 BSA Calculated1.61 Tobacco Useb) No Fall [...] NormalUH TouchworksXR KNEE LEFT (MIN 4 VIEWS)on 70-40-0056IE KNEE LEFT (MIN 4 VIEWS)EXAM: XR KNEE [...] Joe Lopez MD 09/29/21 Final resultNormalMercy Marcin Highland Ridge HospitalOB/LEGAL DEPARTMENT MANAGER - Office Visiton 90-14-4261SY/LEGAL DEPARTMENT MANAGER - Office VisitDiagnoses/Problems Assessed Anxiety (300.00) (F41.9) Orders Start: FLUoxetine HCl - 20 MG Oral Capsule; TAKE 1 CAPSULE Daily Provider Impressions 26 yo 1. 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 [employer] History of Present Nqahnts1 yo with endometriosis was on norethindrone d/c'd [...] Every 6 hours Vitals Vital Signs Recorded: 14Cgg4904 01:19PM Kuukjynj153 Ibansgwbt48 Height5 ft 2 in Maxnum194 lb BMI Syklmsnbst09.58 kg/m2 BSA Calculated1.53 Tobacco Useb) No Fall Screeninga) No falls within the last year JNG97Poh5550 Pain Scale0 Signatures Electronically signed by : Charlene Rodriguez DO; Jun 03 2021 10:55AM EST (Author) NormalUH TouchworksChlamydia sp identified Org specific cx Nom (Genital specimen)Ordered By: Jackelyn Dela Cruz on 73-23-3978Xifdqlgh Chlamydia Screen NegativeNegativeSumtx HealthHBV surface Ag IA Qlon 73-06-4115Hmdqvqyl Hepatitis B Surface AgNegativeNegative, None DetectedSumma HealthHIV 1+2 Ab and HIV1 p24 Ag IA.rapid Nom (S/P/Bld)on 10-16-3434COW-1/HIV-2 AbNegativeSumma HealthNo Panel Informationon 60-70-9433Vhrgwboo Gonorrhea ScreenNegativeNegativeSumma Health External Rubella IGG QuantitationPositiveSumma HealthSumma HealthNo Panel InformationOrdered By: Jackelyn Dela Cruz on 94-08-2827Yzwpl HealthReagin Ab RPR Ql (S)on 39-99-0960Uesojbcp RPRNon-ReactiveBorderline, Nonreactive, Weakly Reactive, EquivocalSumma HealthOB/LEGAL DEPARTMENT MANAGER - Office Visiton 43-06-5163OT/LEGAL DEPARTMENT MANAGER - Office VisitDiagnoses/Problems Assessed Endometriosis (617.9) (N80.9) Never smoker Orders Stop: Norethindrone Acetate 5 MG Oral Tablet Tobacco Use Screening; Status:Complete; Done: 31Wcn9807 Provider Impressions 26 yo 1. endometriosis: rx'd norethindrone referral to pelvic floor PT rtc in 3-6 months if continues to have pain, will consider centrally acting neuromodulator Chief Complaint Patient presents today for f/u for endometriosis PAP per patient 2019 WNL Testing Manager declined -CATY,AIR [employer]ORE LMP 04/11/21 History of Present Qkevuyp89 yo with endometriosis bleeding once per month, [...] DO; Apr 20 2021 11:04AM EST (Author) [facility] TouchworksTobacco Screening.on 87-22-2083Jqgx risk assessmenta) No falls within the last nekxHR-RKHUB-Zbfkmg 320 Work Phone: Lasi menstrual period start oxpg98Qin3458 IG-XBWXJ-Xlmbiv 320 Work Phone: Tobacco Screening.b) DfOJ-AKYTL-Gwcila 320 Work Phone: Radiologyon 04-03-7444RC Kidney - bilateralNormal QF-Wiepzdz-Ahcfnulcw Work Phone: us RENAL BILATon 87-31-4250DB RENAL BILATMRN: [id number] Patient Name: JUHI COPE STUDY: US RENAL BILAT; 04/14/2021 1:14 pm INDICATION: Recurrent UTI. COMPARISON: None. ACCESSION NUMBER(S): [id number] ORDERING CLINICIAN: TERI CHAU TECHNIQUE: Multiple images [...] Electronically signed by: GENEVIEVE CAR STUPIN, MDSt. Mary [facility] Visit (Urology)on 06-17-0511Xwnrlp-up visitDiagnoses/Problems Assessed Recurrent UTI (599.0) (N39.0) Orders Recurrent UTI Start: Nitrofurantoin Monohyd Macro 100 MG Oral Capsule; TAKE 1 CAPSULE Other Please take one capsule after sexual intercourse to prevent UTI Rx By: Teri Chau; Dispense: 30 Days ; #:30 Capsule; Refill: 11;For: Recurrent UTI; ROSY = N; [facility] Bilateral; Status:Hold For - Scheduling; Requested for:33Dlh8188; Perform:[facility]; Due:23Tgu8568; Last Updated By:Isela Terrazas; 04/01/2021 9:16:17 AM;Ordered; [...] UTI; ROSY = N; [place] [place] [address] Provider Impressions 26 year old female with history of endometriosis presents today via telehealth as a new patient forevaluation of recurrent UTIs. She reports getting UTIs at least once per month, noting occasional nocturia. Symptoms include burning, frequency, and back pain. She states that some UTIs are related to sexual intercourse but most are not. Patient reports she saw Dr. Booth at [facility] in [place], noting she was only treated with medications and urethral dilation for a supposed stricture.Denies gross hematuria. Patient is a non-smoker. Urine culture from [facility] on 03/04/21 was positive for [...] NPV - recurrent UTI History of Present Ljocpxb60 year old female with history of endometriosis presents today via telehealth as a new patient for evaluation of recurrent UTIs. She reports getting UTIs at least once per month, noting occasional nocturia. Symptoms include burning, frequency, and back pain. She states that some UTIs are related to sexual intercourse but most are not. Patient reports she saw Dr. Booth at [facility] in [place], noting she was only treated with medications [...] content not included)...NormalUH TouchworksNM GASTRIC EMPTYING SOLIDon 62-66-5420YM GASTRIC EMPTYING SOLID* * *Final Report* * * DATE OF EXAM: Nov 05 2020 12:26PM [facility] 0017 - [place] GASTRIC EMPTYING [...] 4 HOURS IS CONSISTENT WITH MILD GASTROPARESIS. Research Development Director: PSCB Transcribe Date/Time: Nov 05 2020 1:09P Dictated by : SIDDHARTH PEREA MD This examination was interpreted and the report reviewed and electronically signed by: SIDDHARTH PEREA MD on Nov 05 2020 1:24PM EST [id number] Healthcare Manistee HospitalANES POSTPROC EVALon 30-60-9520ALXE POSTPROC EVALHNO ID: [id number] Author: Austin Story Service: ? Author Type: [...] October 25, 2020 TIME: 2:52 PM CSN: [id number] HospitalANES PRE-OPon 22-89-7563JUYC PRE-OPHNO ID: [id number] Author: Austin Story Service: ? Author Type: [...] October 25, 2020 TIME: 1:08 PM CSN: [id number] [facility]irm[facility] PATHOLOGYon 10-25-2020 SURGICAL PATHOLOGYSpecimen originated from [facility] Specimen #: [id number] Submitting Physician: MALCOLM CRUZ MD FINAL DIAGNOSIS 1. Small bowel, biopsy (A) - Small bowel mucosa with no pathologic diagnostic abnormality; negative for celiac disease, granulomas and dysplasia. 2. Stomach, biopsy (B) - Gastric oxyntic-type mucosa with no pathologic diagnostic abnormality; see comment. /[facility] 10/26/2020 COMMENT 2. No microorganisms morphologically [...] cassette. Gross examination performed at [facility], [address] [place] [address] 10/25/2020 7:59:40 PM Date of Report: 10/26/2020 Date of Procedure: 10/25/2020 Date of Receipt: 10/25/2020 Submitted by: MALCOLM CRUZ MD Location: [facility] Diagnostic interpretation performed at [facility], [address] [place] [address]. [place] Number: [id number] Clinic Reference LabComment on above:Performed By: #### S #### See report for performing lab information.SURGICAL PATHOLOGYSpecimen originated from [facility] Specimen #: [id number] Submitting Physician: MALCOLM CRUZ MD FINAL DIAGNOSIS 1. Small bowel, biopsy (A) - Small bowel mucosa with no pathologic diagnostic abnormality; negative for celiac disease, granulomas and dysplasia. 2. Stomach, biopsy (B) - Gastric oxyntic-type mucosa with no pathologic diagnostic abnormality; see comment. /[facility] 10/26/2020 COMMENT 2. No microorganisms morphologically [...] cassette. Gross examination performed at [facility], [address] [place] [address] EJL 10/25/2020 7:59:40 PM Date of Report: 10/26/2020 Date of Procedure: 10/25/2020 Date of Receipt: 10/25/2020 Submitted by: MALCOLM CRUZ MD Location: [facility] Diagnostic interpretation performed at [facility], [address] [place] [address]. [place] Number: [id number] Hospital/ GROUP TESTon 05-46-7567VJQ [facility] CenterComment on above: Performed By: #### VERAB #### [facility] [address] [place], [place] [address]DU TYPEPositiveAbbeville General HospitalComment on above: Performed By: #### VERAB #### [facility] [address] [place], [place] [address]Hdruy Surgical Pathology Departmenton 62-45-7984Jnvug Surgical Pathology DepartmentName JUHI COPE Pathologist: ASHLEY HURTADO MD Date of Procedure: 09/01/2020 Date Received: 09/01/2020 Date Reported 09/03/2020 Submitting Physician: CHARLENE RODRIGUEZ D.O. Location: [facility] External # FINAL DIAGNOSIS A. [...] D. Right pelvic sidewall peritoneum are 2 qyhv-bwg-ani, irregular fragments of tissue measuring 1.3 x [...] in toto in one cassette. SB amisha/09/02/2020 [facility] Department of Pathology [address] [place], [place] [address]RhzkxlHMFirstHealth Moore Regional HospitalComment on above:Performed By: #### [facility] #### [facility] Surgical Pathology Department [address] [facility] [address]Canhypf and Physical - Surgery > 30 dayson 16-69-6207Kdgbifv and Physical - Surgery > 30 daysHistory [...] T&S: O+, COVID-19: negative OB Hx: None. Finishing Area Supervisor Hx: As above. PMHx: endometriosis Surg Hx: diagnostic laparoscopy, appendectomy (2016) Meds: Meloxicam, [place]-Linyah, Norethindrone acetate Social Hx: No tobacco, no [...] the note. I personally evaluated the patient [id number] Attending Provider Inpatient Certification StatementObservation patient/other outpatient visits Electronic Signatures: Charlene Rodriguez () (Signed 01-Sep-2020 10:04) Authored: Note Completion Co-Signer: History of Present Illness, Home Medication Review, Impression/Procedure, ERAS, Physical Exam, Consent, Note Completion Chelsie Leal ( (Resident)) (Signed 31-Aug-2020 15:44) Authored: History of Present Illness, Home Medication Review, Impression/Procedure, ERAS, Physical Exam, Consent, Note Completion Last Updated: 01-Sep-2020 10:04 by Charlene Rodriguez ()A[facility]eville General HospitalHomegoing Instructionson 30-81-3063Lisvcudyj InstructionsAdditional Instructions: Handouts Given: Topic 1Anesthesia Homegoing Instructions Topic 2Surgical Site Infection Handout Topic 3New Medication Education Topic 4Suggamedex handout Electronic Signatures: Aminata Gomez (DIALLO) (Signed 01-Sep-2020 16:07) Authored: Additional Instructions Last Updated: 01-Sep-2020 16:07 by Aminata Gomez (DIALLO)[facility]eville [facility] HospitalPatient Profile - Preop v2on 67-69-6964Cwjsppu Profile - Preop j5Edlvlzw: Initial Info: How to be Addressedalexis Spoken Language PreferredEnglish Are you currently using the Personal Electronic Health Record or SnappyTV Stated Reason for Admissionseeing if my endometriosis is back Primary Contact Name and Numberlogan [phone] Patient Belongingsclothing locker glasses with bf Medications Brought to Hospitalno General Health: Weight in kg55.6 kilogram(s) Weight in ccj221.5 pound(s) Weight Methodactual (measured) Scale Typestanding Height [...] Arrangementshouse Lives Withparent(s) Resource/Environmental Concernsnone [place] Anticipated at Transitionnone Substance: Current or [...] Learning Preferencesverbal instruction Cultural Considerationsnone Developmental Considerationsnone Synagogue Considerationsnone Other learner availableno Falls RiskPatient location auto qualifies him/her for HIGH RISK. Are there any cultural, spiritual, muslim practices/values/needs that are important for us to [...] Physical - Surgery > 30 days 01-Sep-2020 03:42Abbeville General HospitalPreop Checkliston 89-95-1453Zzbkl Checklist Preop Checklist: Preop Checklist: Arrival Vaoi71-Ggt-1291 Arrival Time12:30 Procedure Typelaparoscopic endometriosis excision NPO Vvcajz46-Iul-7741 00:00 ID Band Onyes Allergy Bandno known [...] Last Updated: 01-Sep-2020 12:35 by Sierra Kraft (RN)[facility] General HospitalANTIBODY IDENT.on 54-76-5646IOXQCBIQ IDENT.SEE BELOWNormFirstHealth Moore Regional HospitalComment on above:Result Comment: NO CLINICALLY SIGNIFICANT ANTIBODIES IDENTIFIED.Performed By: #### ABID #### [facility] [address] [place], [place] [address]SUCxw 27-99-4928Vxqbcrupsil distribution width (RBC) [Ratio] 12.1 %Jenjtk06.5 - 14.5Riverview Medical CenterComment on above:Performed By: #### CBC #### [facility] [address] [place], [place] [id number] (Bld) [Volume fraction]39.6 %Twdoao00.0 - 46.0Riverview Medical CenterComment on above:Performed By: #### CBC #### [facility] [address] [place], [place] [id number] (Bld) [Mass/Vol]12.6 g/mFSzthmo09.0 - 16.0Riverview Medical CenterComment on above:Performed By: #### CBC #### [address] [id number] (RBC) [Mass/Vol]31.8 g/dLLow32.0 - 36.0Riverview Medical CenterComment on above:Performed By: #### CBC #### [address] [id number] (RBC) [Entitic vol]90 vFQabamy51 - 100Riverview Medical CenterComment on above:Performed By: #### CBC #### [address] [id number] (Bld) [#/Vol]333 10*3/xGPgnwyw998 - 450Riverview Medical CenterComment on above:Performed By: #### CBC #### [address] [id number] x10E12/LNormal4.00 - 5.20[facility] Comment on above:Performed By: #### CBC #### [address] [id number] (Bld) [#/Vol]5.6 10*3/uLNormal4.4 - 11.3Riverview Medical CenterComment on above:Performed By: #### CBC #### [address] [id number] 2019, SCREEN ASYMPTOMATICon 31-93-0434FWLR-CoV-2 (COVID-19) RNA TENA+probe Ql (Unsp spec)Not detectedNormalNot DetectedRiverview Medical CenterComment on above:Result Comment: This assay [...] patient management decisions. Fact sheet for providers: https://www.fda.gov/media/843287/download Fact sheet for patients: https://www.fda.gov/media/570111/download This test has received FDA Emergency Use Authorization (EUA) and has been verified by [facility] ([facility]). This test is only authorized for the duration of time that circumstances exist to justify the authorization of the emergency use of in vitro diagnostic tests for the detection of SARS-CoV-2 virus and/or diagnosis of COVID-19 infection under section 564(b)(1) of the Act, 21 U.S.C. 360bbb-3(b)(1), unless the authorization is terminated or revoked sooner. [facility] is certified under CLIA-88 as qualified to perform high complexity testing. Testing is performed in the [facility] laboratories located at [address] [place] [address].Performed By: #### COVSC #### [place], [place] [address]Lab Specimen SourceNasal, NasopharyngealNoMcKee Medical CenterComment on above:Performed By: #### COVSC #### [place], [place] [address]TYPE + SCREENon 34-27-0348EFS [facility] MEDICAL CENTERONoSelect Specialty Hospital - GreensboroComment on above:Performed By: #### T+S #### [facility] [address] [place], [place] [address]EF TYPEPositiveAbbeville General HospitalComment on above: Performed By: #### T+S #### [facility] [address] [place], [place] [address]KZD TYPECanceledFederal Medical Center, RochesterComment on above:Order Comment: TEST TYPE + SCREEN WAS CANCELLED, 08/30/2020 13:37 JOP. Performed By: #### T+S #### [facility] [address] [place], [place] [address]AJ TYPECanceledNormSedgwick County Memorial HospitalComment on above:Order Comment: TEST TYPE + SCREEN WAS CANCELLED, 08/30/2020 13:37 JOP. Performed By: #### T+S #### [facility] [address] [place], [place] [address]YKKSab 67-15-0450UXCDFhvtyka:Juhi Cope MRN: Height:5' 2 (1.575 m) Weight:120 [...] for the following basenames: K,HCT Progress Notes ([facility] AV[facility]): Jaquelin Wesley Ma 10/19/2020 [...] 1 10 oz. Bottle of Magnesium Citrate (Lemon/[place]) ? A test for COVID 19 test [...] toast without seeds (not multigrain); pretzels; waffles, Upper Sorbian toast and pancakes; white rice, noodles, pasta, macaroni, peeled cooked potatoes; Special K, Rice Krispies or Abell Flakes cereals; ripe bananas; melons (except watermelon [...] carbonated beverages such as chi aislinn or lemon-atqasuk soda; Gatorade? or other sports drinks (not [...] make sure you have a responsible adult tow truck driver to take you home after procedure. Due to having sedation, you may not drive the rest of the day. ? If you need to reschedule, please call [phone] ?Date/Provider Dr Cruz Procedure:colonoscpy Facility:[facility] Prep ordered( if aware):miralax Knowledge of prep instructions:posted to [employer] Diabetic:no Blood Thinners:no Pacemaker with defibrillator:no left message for patient to return call. Nurse triage please give below message. PLEASE READ PATIENT INSTRUCTIONS BELOW. THANK YOU.[facility] on 40-87-9078ILBMDAQBCTU ID: [id number] Author: Leon Perkins (Rt) Fito Blanchard Service: Radiology Author Type: Translational Specialist Type: Progress Notes Filed: 07/29/2020 11:06 [...] BY: RT Daya July 29, 2020 11:01 [facility] CenterXR ABD 2V SUPINE W UPR/DECUB/CTLon 76-60-0121ZS ABD 2V SUPINE W UPR/DECUB/CTL* * *Final [...] structures are normal. No other significant abnormality. Research Development Director: DAVID Transcribe Date/Time: Jul 29 2020 11:19A Dictated by : LALI ORNELAS MD This examination was interpreted and the report reviewed and electronically signed by: LALI ORNELAS MD on Jul 29 2020 11:19AM EST [id number]_[facility] Vital Signs Date TimeVital SignValuePerforming CbvbigphgIxoopncc64-69-4363 15:04-0500Body mass index (BMI) [Ratio]30.36 kg/v8Gbhre Kiesha DO Work Phone: 1(189)098-[address] [place], [place] [address]Jmsjbgwxuy39-87-0096 15:04-0500Body opqmme57.3 kg Nathan Kiesha DO Work Phone: [phone] [address]-05-2025 15:04-0500Diastolic blood vijcbubu68 mm[Hg]Nathan Kiesha DO Work Phone: 1(085)148-[address] [place], [place] [address]Pwtneiiupm57-71-4931 15:04-0500Systolic blood oybdrbsr983 mm[Hg]Nathan Kiesha DO Work Phone: [phone] [place], [place] 7039710-22-2025 16:04-0400Body mass index (BMI) [Ratio]29.78 kg/t8Zwowt Kiesha DO Work Phone: 1([phone])292-[address] [place], [place] [address]Jgklnmuxkr24-66-5198 16:04-0400Body svsvly83.85 kgCorey Kiesha DO Work Phone: 1(026)[facility] [place], [place] [address]Xmiozxezzj48-30-2248 16:04-0400Diastolic blood fmhwyyct36 mm[Hg]Nathan Kiesha DO Work Phone: 1(847)[facility] [place], [place] [address]Udbznwmdta73-60-2545 16:04-0400Systolic blood kwchepli784 mm[Hg]Nathan Kiesha DO Work Phone: [phone] [address]-16-2025 10:34-0400Body mass index (BMI) [Ratio]29.26 kg/w9DikoeohxMadhuri Monroy MD Work Phone: [facility] 10:34-0400Body spdcec34.58 kgMadhuri Monroy MD Work Phone: 1(775)014-[address] [place], [place] 5065310-16-2025 10:34-0400Diastolic blood mm[Hg]Madhuri Monroy MD Work Phone: 1(419)[address] [place], [place] 9916910-16-2025 10:34-0400Systolic blood mm[Hg]Madhuri Monroy MD Work Phone: 1(419)[address] [place], [place] 9916910-10-2025 14:48-0400Body xlapyw355.5 cmMine Denise MD Work Phone: 1(419)[address] [place], [place] 9916910-10-2025 14:48-0400Body mass index (BMI) [Ratio]29.04 kg/f4MetmzcMine Denise MD Work Phone: 1(419)[address] [place], [place] 9916910-10-2025 14:48-0400Body crlqyy46.03 kgMine Denise MD Work Phone: 1(419)[address] [place], [place] 9916910-10-2025 14:48-0400Diastolic blood supsqvwi85 mm[Hg]Mine Denise MD Work Phone: 1(419)[address] [place], [place] 9916910-10-2025 14:48-0400Heart rate 104 /minMine Denise MD Work Phone: 1(419)[address] [place], [place] 9916910-10-2025 14:48-0400Systolic blood mm[Hg]Mine Denise MD Work Phone: 1(115)[address] [place], [place] 9916910-09-2025 15:54-0400Body mass index (BMI) [Ratio]29.41 kg/x9KzgfmwfeSteph Keane MANAGER FRAUD Work Phone: [phone] [place], [place] [address]Dnpuspubay07-98-1119 15:54-0400Body vgngwy30.94 kgSteph Keane MANAGER FRAUD Work Phone: [phone] HospitalDusxjitgjc22-62-8062 15:54-0400Diastolic blood urtnqzbi74 mm[Hg]Steph Keane MANAGER FRAUD Work Phone: 1(011)816-[facility] HospitalGgxwttakqb77-18-4368 15:54-0400Systolic blood ofxcuttp496 mm[Hg]Steph Keane MANAGER FRAUD Work Phone: [facility] HospitalLwgreodwkh56-36-5360 15:37-0400Body mass index (BMI) [Ratio]29.23 kg/d9ThcgoacdSteph Keane MANAGER FRAUD Work Phone: [facility] HospitalFmfsnvwcdt82-06-6881 15:37-0400Body pqtlki80.48 kgSteph Rickettserly MANAGER FRAUD Work Phone: [facility] HospitalMxjpvedjvf63-29-5816 15:37-0400Diastolic blood wyuqqrfb79 mm[Hg]Steph Keane MANAGER FRAUD Work Phone: [facility] HospitalNlzmseovjf67-54-4553 15:37-0400Systolic blood tqmeiink747 mm[Hg]Steph Rickettserly MANAGER FRAUD Work Phone: [facility] HospitalZixxksffeo58-04-1921 15:55-0400Body mass index (BMI) [Ratio]29.45 kg/w2GkixcoTeena Sarmiento RN Work Phone: 1(540)349-[address] [place], [place] 5065309-29-2025 15:55-0400Body midqrx47.03 kgTeena Sarmiento RN Work Phone: 1(523)046-[address] [place], [place] 2332409-17-2025 14:32-0400Body mass index (BMI) [Ratio]27.82 kg/g7Srqbd Kiesha DO Work Phone: [facility] HospitalYhtcxegocj92-22-4893 14:32-0400Body iklrtw56 kg Nathan Kiesha DO Work Phone: [facility] HospitalTxotucpofa39-53-5897 14:32-0400Diastolic blood ychpwxqk81 mm[Hg]Nathan Kiesha DO Work Phone: [place] [address]Apccrcdatb45-93-8582 14:32-0400Systolic blood hxtxizgn676 mm[Hg]Nathan Kiesha DO Work Phone: [facility] HospitalTklcwticcm69-18-2713 15:36-0400Body avfbqi778.5 cmGeorge Kageovanian DO Work Phone: [facility]landPjzqbrnzcq63-57-9312 15:36-0400Body mass index (BMI) [Ratio]27.62 kg/p7Cotfvcsherita Beltran DO Work Phone: ZCChildren[facility] NorthlandWxerhqxqjz97-71-4436 15:36-0400Body temperature 97.11 [degF]Eliceo Beltran DO Work Phone: NO[facility] NorthlandTjlprvfuak90-77-3015 15:36-0400Body bwpgyf38.49 kgGeorsherita Beltran DO Work Phone: FFChildren[facility] NorthlandAqsmmzawvx76-93-2512 15:36-0400Diastolic blood qyjhxhkj49 mm[Hg]Eliceo Beltran DO Work Phone: WAChildren[facility] NorthlandUmtrpaoktw22-91-4844 15:36-0400Heart rate97 /min Eliceo Beltran DO Work Phone: [facility] HospitalMzbmvproud45-01-8293 15:36-4726GcG9% (BldA) [Mass fraction]98 %Eliceo Beltran DO Work Phone: YKChildren[facility] NorthlandCjrodajbjb65-32-7013 15:36-0400Systolic blood doxtjrat494 mm[Hg]Eliceo Beltran DO Work Phone: [facility] HospitalShvxakhmas95-78-6800 15:42-0400Body mass index (BMI) [Ratio]26.48 kg/d6Cwvav Fazio DO Work Phone: [facility] HospitalHvkuxqiqug57-06-3353 15:42-0400Body .68 kgCorepearl Cabrerao DO Work Phone: [facility] HospitalQbunydokqq70-19-4812 15:42-0400Diastolic blood mm[Hg]Nathan Cabrerao DO Work Phone: [facility] HospitalIplrrnyrlx72-17-6084 15:42-0400Systolic blood zxmtglyo014 mm[Hg]Nathanpearl Cabrerao DO Work Phone: [facility] HospitalZqzogykdgx40-24-9118 14:33-0400Body mass index (BMI) [Ratio]26.73 kg/i0Bdmgn Kiesha DO Work Phone: [facility] HospitalMvdrpcpkta37-29-2122 14:33-0400Body .28 kgCorey Kiesha DO Work Phone: [facility] HospitalPjphaetnoa60-71-9096 14:33-0400Diastolic blood pyyemiug82 mm[Hg]Nathan Kiesha DO Work Phone: 1(835)832-[address] [place], [place] [address]Fmsofrmwvy49-03-8119 14:33-0400Systolic blood davhzqsf069 mm[Hg]Nathan Kiesha DO Work Phone: 1(668)440-[address] [place], [place] [address]Jypzhiqjop63-31-4483 14:45-0400Body mass index (BMI) [Ratio]25.24 kg/g3Hllkm Kiesha DO Work Phone: 1(183)226-[address] [place], [place] [address]Wkavlqgkez03-00-1512 14:45-0400Body wsharb52.6 kg Nathan Kiesha DO Work Phone: 1(426)673-[address] [place], [place] [address]Psdghmzwfp70-19-1392 14:45-0400Diastolic blood bfqjekqr21 mm[Hg]Nathan Kiesha DO Work Phone: 1(258)208-[address] [place], [place] [address]Jcykahbbtn80-02-5625 14:45-0400Systolic blood ggqujqko330 mm[Hg]Nathan Kiesha DO Work Phone: 1(394)650-[address] [place], [place] [address]Spqexfxxkj92-66-0779 10:29-0400Body mass index (BMI) [Ratio]25.68 kg/m2[facility]06-06-2025 10:29-0400Body .69 [facility]02-24-2025 15:08-0500Body mass index (BMI) [Ratio]25.99 kg/g8Jlmkk Kiesha DO Work Phone: 1(648)997-[address] [place], [place] [address]Oghnanlpyz75-21-1263 15:08-0500Body dloauy75.47 kgCorey Kiesha DO Work Phone: 1(998)012-[address] [place], [place] [address]Zsarjnlshn23-51-2105 15:08-0500Diastolic blood mm[Hg]Nathan Kiesha DO Work Phone: 1(763)850-[address] [place], [place] [address]Bdsjpjcpzg07-88-9619 15:08-0500Systolic blood mm[Hg]Nathan Kiesha DO Work Phone: 1(436)757-[address] [place], [place] [address]Nsprnhnyxu76-73-4761 15:53-0500Body .5 cmGemartha Beltran DO Work Phone: noChildren[facility] NorthlandDtavxggtwn98-41-5268 15:53-0500Body mass index (BMI) [Ratio]25.61 kg/r1Unzdtsmartha Beltran DO Work Phone: noChildren[facility] NorthlandZrlhzbhoav90-40-8260 15:53-0500Body temperature 97.11 [degF]Eliceo Beltran DO Work Phone: noChildren[facility] NorthlandXvleefhzfb48-56-8549 15:53-0500Body efghyv83.5 kg Eliceo Beltran DO Work Phone: noChildren[facility] NorthlandUgmthajwgc55-93-3522 15:53-0500Diastolic blood kwnyhbyl17 mm[Hg]Eliceo Beltran DO Work Phone: noChildren[facility] NorthlandEfsvpztkpl01-97-2115 15:53-0500Heart rate51 /min Eliceo Beltran DO Work Phone: noChildren[facility] NorthlandBhjtrdcmeq95-35-1854 15:53-5024GdN5% (BldA) [Mass fraction]98 %Eliceo Beltran DO Work Phone: noChildren[facility] NorthlandYdujawatjf70-64-8526 15:53-0500Systolic blood blowlhiw983 mm[Hg]Eliceo Beltran DO Work Phone: noChildren[facility] NorthlandBslzttcfvt50-94-5083 11:15-0400Body mass index (BMI) [Ratio]25.97 kg/c1Trwpp Fazio DO Work Phone: [facility] HospitalZcjpkzcpii46-36-3592 11:15-0400Body tjvima44.41 kgNathan Pop DO Work Phone: NOChildren[facility] NorthlandOqvmjoglpe26-44-9270 11:15-0400Diastolic blood wambsejd14 mm[Hg]Nathan Pop DO Work Phone: [facility] HospitalObhwhgfwsz17-80-1837 11:15-0400Systolic blood aayoedgi513 mm[Hg]Nathan Pop DO Work Phone: noChildren[facility] NorthlandLrtqhoxute94-46-9619 10:02-0400Body mass index (BMI) [Ratio]25.39 kg/f4Heiyf Kiesha DO Work Phone: 1(237)263-[address] [place], [place] [address]Idnungemgm03-35-2903 10:02-0400Body .96 kgCorey Kiesha DO Work Phone: 1(890)[facility] [place], [place] [address]Kwzrzbtnjc64-56-7741 10:02-0400Diastolic blood rexvexrk30 mm[Hg]Nathan Kiesha DO Work Phone: 1(393)427-[address] [place], [place] [address]Nkvrvfcyvi93-19-4611 10:02-0400Systolic blood tadaqvch128 mm[Hg]Nathan Kiesha DO Work Phone: 1(094)[facility] [place], [place] [address]Cdprljhfzm31-31-1037 10:55-0500Body mass index (BMI) [Ratio]28.17 kg/u0Yjumq Kiesha DO Work Phone: 1(996)[facility] [place], [place] [address]Begdjvyvmm61-51-5795 10:55-0500Body sdowbh00.85 kgCorey Kiesha DO Work Phone: 1(411)[facility] [place], [place] [address]Hnjpucoqst28-95-3333 10:55-0500Diastolic blood ddsiccxe82 mm[Hg]Nathan Kiesha DO Work Phone: 1(495)[facility] [place], [place] [address]Uskxpghdla91-56-3678 10:55-0500Systolic blood zccpabyn278 mm[Hg]Nathan Kiesha DO Work Phone: 1(430)[facility] [place], [place] [address]Hxfsdxmjhw73-79-3974 17:31-0400Body temperature 98.96 [degF][facility]10-18-2023 17:31-0400 Diastolic blood wwgrzirk86 mm[Hg][facility]10-18-2023 17:31-4766NIO5 99 %[facility]10-18-2023 17:31-0400Heart upef085 /minVon Loco [facility]10-18-2023 17:31-0400 Respiratory rate16 /minV[facility] Loco [facility]10-18-2023 17:31-0400 Systolic blood xjovirwn974 mm[Hg][facility]06-06-2023 10:55-0400Body yvdhvn742.5 cmErin Reaper HISTORY CARD CLERK.FLORIST MANAGER Work Phone: [phone] Wdvvds42-21-1615 10:55-0400Body .86 kgErin Reaper HISTORY CARD CLERK.FLORIST MANAGER Work Phone: [phone] Rzvpwx65-59-7241 10:55-0400Diastolic blood xfpzpowo84 mm[Hg]Jihan Reaper HISTORY CARD CLERK.FLORIST MANAGER Work Phone: [phone] Wptipp28-29-8530 10:55-0400Systolic blood neriwcwa816 mm[Hg]Jihan Reaper HISTORY CARD CLERK.FLORIST MANAGER Work Phone: [place] Qnwokt13-46-4486 19:18-0500Diastolic blood qbirfokt40 mm[Hg][facility]03-08-2023 19:18-0500Heart rate98 /minPrem[facility]03-08-2023 19:18-0500Nursing Progress Note ReasonOther: this RN discharged pt. pt verbalizes understanding and denies questiosn prior to discharge.[facility]03-08-2023 19:18-0500Respiratory rate16 /minPrem[facility]03-08-2023 19:18-9518JsX4% (BldA) [Mass fraction]100 %[facility]03-08-2023 19:18-0500 Systolic blood kkgijkfe131 mm[Hg][facility] 01-31-2023 18:00-0500Diastolic blood hikodlwo62 mm[Hg][facility]03-08-2023 18:00-0500Heart xgdh644 /minPrem[facility]03-08-2023 18:00-0500Mean blood yctlvyqf690 mm[Hg][facility]03-08-2023 18:00-3949DlD9% (BldA) [Mass fraction]99 %[facility]03-08-2023 18:00-0500 Systolic blood haellswc211 mm[Hg][facility] 01-31-2023 17:00-0500Diastolic blood uguyuhyg05 mm[Hg][facility]03-08-2023 17:00-0500Mean blood dkaqsjpe478 mm[Hg][facility]03-08-2023 17:00-0500Systolic blood pressure 117 mm[Hg][facility]03-08-2023 16:38-0500Heart ldgz738 /minPrem[facility]03-08-2023 16:38-0500Mean blood iqxknlii907 mm[Hg][facility]03-08-2023 16:38-0500Respiratory rate18 /[facility] 01-31-2023 13:49-0500Body xibyedxfdqo92.88 [degF][facility]03-08-2023 13:49-0500Heart cktl654 /minPrem[facility]02-04-2023 14:55-0500Body xliqnvjjing71.88 [degF][facility]02-04-2023 14:55-0500Diastolic blood rokdybmy40 mm[Hg][facility]02-04-2023 14:55-0500Heart rate84 /minPrem[facility]02-04-2023 14:55-0500Mean blood icplviag655 mm[Hg][facility]02-04-2023 14:55-0500Respiratory rate20 /minPrem[facility]02-04-2023 14:55-6345LrW3% (BldA) [Mass fraction]98 %[facility]02-04-2023 14:55-0500Systolic blood pressure 137 mm[Hg][facility]02-04-2023 14:35-0500Body sfnpvdielvm24.88 [degF][facility]02-04-2023 14:35-0500Diastolic blood mm[Hg][facility]02-04-2023 14:35-0500Heart rate82 /minPrem[facility]02-04-2023 14:35-0500Mean blood tmpxsurm35 mm[Hg][facility]02-04-2023 14:35-0500Respiratory rate16 /[facility]02-04-2023 14:35-9366TlE2% (BldA) [Mass fraction]97 %[facility]02-04-2023 14:35-0500Systolic blood papzpsfn090 mm[Hg][facility]02-04-2023 13:35-0500Body tdhyoinkoxr56.88 [degF][facility]02-04-2023 13:35-0500Diastolic blood hdsfxhre99 mm[Hg][facility]02-04-2023 13:35-0500Heart rate80 /min[facility]02-04-2023 13:35-0500Mean blood wfbhdies26 mm[Hg] [facility]02-04-2023 13:35-0500Respiratory rate 17 /minPrem[facility]02-04-2023 13:35-7490TeH2% (BldA) [Mass fraction]96 %[facility]02-04-2023 13:35-0500Systolic blood igofjksr764 mm[Hg][facility]02-04-2023 13:00-0500Respiratory rate12 /minPrem[facility]02-04-2023 12:55-0500Respiratory rate9 /minPrem[facility]02-04-2023 12:50-0500Respiratory rate10 /min[facility]02-04-2023 08:15-0500Body zlokaykcxhi48.24 [degF] [facility]02-04-2023 08:15-0500Heart sdzm513 /minPrem[facility]01-07-2023 13:41-0500Body ofbhhowlgap61.2 [degF]Kathe Ryder DO Work Phone: 1(441)702-[address] [place], [place] [address]Nrgvuk49-60-6478 13:41-0500Diastolic blood ohjgaxyp79 mm[Hg]Kathe Ryder DO Work Phone: [facility]Qcnhdg86-53-1286 13:41-0500Heart uakj335 /min Kathe Ryder DO Work Phone: [phone] GeneralXwjxrz63-66-1447 13:41-0500Respiratory rate18 /minKathe Ryder DO Work Phone: [facility] GeneralBvnlrh89-80-2524 13:41-1365AhY5% (BldA) [Mass fraction]99 %Kathe Ryder DO Work Phone: [facility] GeneralFvtblb13-88-5010 13:41-0500Systolic blood meqnwlly386 mm[Hg]Kathe Ryder DO Work Phone: [facility] GeneralWfmwtp46-13-8542 00:45-0500Body bkgufv860.5 cm Kathe Ryder DO Work Phone: [facility] GeneralWuijdf35-93-4450 00:45-0500Body mass index (BMI) [Ratio]25.61 kg/h3CtyxiduimKathe Ryder DO Work Phone: [facility] GeneralPpzbbe22-66-1493 00:45-0500Body vyabye56.5 kg Kathe Ryder DO Work Phone: [facility] GeneralBxbafi84-45-6263 22:26-0500Hourly Rounding Fredi KARASIK [address] [place], [place] [address]Comment on above:Result Comment: ensured that all pt belongings are sent with pt. pt has no questions or concerns. report given to EMS. pt stable and no s/s of distress. pt off unit to [phone] 22:00-0500Diastolic blood xjedacwe71 mm[Hg]Fredi KARASIK [address] [place], [place] 3511501-02-2023 22:00-0500Heart ykza266 /minGregory KARASIK [address] [place], [place] 3511501-02-2023 22:00-0500 Hourly RoundingGregory KARASIK [address] [place], [place] 3511501-02-2023 22:00-0500Mean blood mm[Hg]Fredi KARASIK [address] [place], [place] 3511501-02-2023 22:00-0500 Systolic blood ofkhadyg847 mm[Hg]Fredi KARASIK [address] [place], [place] 3511501-02-2023 21:50-0500Blood Pressure LocationGregory KARASIK [address] [place], [place] 3511501-02-2023 21:50-0500 Diastolic blood kusgeccp10 mm[Hg]Fredi KARASIK [address] [place], [place] 3511501-02-2023 21:50-0500Heart jdwu626 /minGregory KARASIK [address] [place], [place] 35[address]01-02-2023 21:50-0500 Hourly RoundingGregory KARASIK [facility]01-02-2023 21:50-0500Mean blood rlavnwov695 mm[Hg]Fredi SCHUMACHERASIK [address] [place], [place] 35[address]01-02-2023 21:50-0500 Respiratory rate18 /minFredi SCHUMACHERASIK [address] [place], [place] 3511501-02-2023 21:50-1473ZkO6% (BldA) [Mass fraction]98 %Fredi SCHUMACHERASIK [address] [place], [place] 3511501-02-2023 21:50-0500 Systolic blood jjyvhayw163 mm[Hg]Fredi KARASIK [address] [place], [place] 3511501-02-2023 21:37-0500Blood Pressure LocationGregrosa ABREUK [address] [place], [place] 3511501-02-2023 21:37-0500 Diastolic blood iooismsb50 mm[Hg]Fredi SCHUMACHERASIK [address] [place], [place] 3511501-02-2023 21:37-0500Heart bstq551 /minFredi ABREUK [address] [place], [place] 3511501-02-2023 21:37-0500Mean blood mm[Hg]Fredi SCHUMACHERASIK [address] [place], [place] 35[address]01-02-2023 21:37-1583VuP5% (BldA) [Mass fraction]97 %Fredi SCHUMACHERASIK [address] [place], [place] 35[address]01-02-2023 21:37-0500 Systolic blood woqgmslr409 mm[Hg]Fredi KARASIK [address] [place], [place] 3511501-02-2023 21:30-0500Blood Pressure LocationFredi SCHUMACHERASIK [address] [place], [place] 3511501-02-2023 21:30-0500Body qqamsgqbzwd32.6 [degF]Fredi DORSEY [facility]01-02-2023 19:00-0500Body njgfyqkgucm35.24 [degF]Fredi DORSEY [facility]01-02-2023 17:15-0500Body wvoquzcemuk25.06 [degF]Fredi DORSEY [facility]01-02-2023 14:02-0500Heart rate99 /minFredi DORSEY [facility]08-19-2022 07:00-0400Body izlxdnmmmuq44.6 [degF]Kaylinn Dokken [address]08-19-2022 07:00-0400 Diastolic blood joeherhn39 mm[Hg]Kaylinn Dokken [address]08-19-2022 07:00-0400Heart rate80 /minKaylinn Dokken [address] [place], [place] [id number] 07:00-0400Mean blood sstacbsp82 mm[Hg]Kaylinn Dokken [address] [place], [place] [id number] 07:00-0400 Respiratory rate17 /minKaylinn Dokken [address]08-19-2022 07:00-0400 Systolic blood mm[Hg]Kaylinn Dokken [address] [place], [place] [id number] 06:07-0400Body wyfoxauzhpv55.24 [degF]Kaylinn Dokken [address]08-19-2022 06:07-0400 Diastolic blood mcgiahvi56 mm[Hg]Kaylinn Dokken [address] [place], [place] [id number] 06:07-0400Heart rate90 /minCharlotteylinn Dokken [address]08-19-2022 06:07-0400 Respiratory rate18 /minCharlotteylinn Dokken [address] [place], [place] [id number] 06:07-9580RiF4% (BldA) [Mass fraction]100 %Kumar Villagomez [address]08-19-2022 06:07-0400 Systolic blood xrhnzage809 mm[Hg]Beatrisn Yulyen [address] [place], [place] [id number] 05:30-0400 Hourly RoundingCorey KIESHA [address] [place], [place] [address]Comment on above:Result Comment: Pt discharged per physician orders. Pt ambulates off unit with a steady ennq91-28-9308 05:15-0400Diastolic blood gljtwjhu12 mm[Hg]Nathan KIESHA [address] [place], [place] 3511508-19-2022 05:15-0400Heart bwra297 /minCorey KIESHA [address] [place], [place] 3511508-19-2022 05:15-0400 Hourly RoundingCorey KIESHA [address] [place], [place] 3511508-19-2022 05:15-0400Mean blood owyqbfma42 mm[Hg]Nathan KIESHA [address] [place], [place] 3511508-19-2022 05:15-0400 Respiratory rate18 /minCorey KIESHA [address] [place], [place] 3511508-19-2022 05:15-0400 Systolic blood yltankog644 mm[Hg]Nathan KIESHA [address] [place], [place] 3511505-24-2022 11:00-0400Body bvwaeh155.02 cmCameron Edward Other nort [employer] Other 05-24-2022 11:00-0400Body mass index (BMI) [Ratio] 23.03 kg/w0Dcwjkto Binpresstty Other [facility] [employer] Other 05-24-2022 11:00-0400Body .97 kgCamerojunior Loratty Other [facility] [employer] Other 03-17-2022 11:41-0400Body pwhuvi272.48 cmMegan Billow DO Work Phone: [phone]-VEGGW[address] Work Phone: [phone] 11:41-0400Body mass index (BMI) [Ratio] 24.51 kg/f4Iiaef Billow DO Work Phone: RN-CCLBN-[address] Work Phone: [phone] 11:41-0400Body surface area Derived from formula1.61 c2Ndvba Billow DO Work Phone: VR-KMRKP-[address] Work Phone: [phone] 11:41-0400Body khjoef31.78 kgMegan Billow DO Work Phone: LF-SMIAP-[address] Work Phone: [phone] 11:41-0400Diastolic blood hsyuzkur76 mm[Hg] Charlene Billow DO Work Phone: PI-EMWUU-[address] Work Phone: [phone] 11:41-0400Systolic blood fdrftmox507 mm[Hg] Charlene Billow DO Work Phone: SF-RIKER[facility] Work Phone: [phone] 11:41-66838 1Megan Billow DO Work Phone: ZW[facility]DS[facility] [address] Work Phone: Comment on above:LUDDUFGLSgryUnqli26-03-7416 14:53-0400Body .48 cmMegan Billow DO Work Phone: YN[facility]JCJ[facility] [address] Work Phone: [phone] 14:53-0400Body mass index (BMI) [Ratio] 21.77 kg/w4Cnizf Billow DO Work Phone: [facility] [address] Work Phone: [phone] 14:53-0400Body surface area Derived from formula1.53 p8Emqjc Billow DO Work Phone: [facility] [address] Work Phone: [phone] 14:53-0400Body wynykg91.98 kgMegan Billow DO Work Phone: [facility] [address] Work Phone: [phone] 14:53-0400Diastolic blood hjkjpesl43 mm[Hg] Charlene Billow DO Work Phone: VG[facility]BJMZL[facility] [address] Work Phone: [phone] 14:53-0400Heart swsc451 /minMegan Billow DO Work Phone: GN[facility] [address] Work Phone: [phone] 14:53-0400Systolic blood xdtazqyt015 mm[Hg] Charlene Billow DO Work Phone: [facility]EMB[facility] [address] Work Phone: [phone] 14:53-24913 1Megan Billow DO Work Phone: [facility]RA[facility] [address] Work Phone: Comment on above:GRAVPARAPainScale Encounters Encounter DateEncounter TypeCare ProviderFacilityStart: 10-06-2025 End: 62-04-4361Shjzsu outpatient visit 25 minutesColleen E Matthias CLAYTON Work Phone: [phone]-Qsmjw [facility] at [facility] Comment on above:Insulin controlled gestational diabetes mellitus (GDM) in third trimester (Primary Dx); Essential hypertension affecting in third trimesterStart: 10-06-2025 End: 40-37-0230fvftznrxyoNDIRBVY E MATTHIASProMedica Pro[facility] Hospitaltart: 10-05-2025 End: 39-35-8209Bxwpqtvtd encounterAnjana Davalos RNMaternal- [facility]: 10-03-2025 End: 33-23-2221Fzcagedoh Result EncounterSteph Keane NP Work Phone: noms External Department UnsolicitedStart: 10-03-2025 End: 42-89-0856Wmmvhhwqr Result EncounterSteph Keane NP Work Phone: noms External Department UnsolicitedStart: 09-30-2025 End: 41-81-3498Pudfxqkr flow sheetCorey Kiesha DO Work Phone: noms Patti OBGYNComment on above:Third trimester ([facility]); 31 weeks gestation of ([facility]); Pre-eclampsia in third trimester ([facility])Start: 09-30-2025 End: 48-34-2575yydribbcadGLHSM FAZIONot AvailableStart: 09-30-2025 End: 20-23-9323Sobgas flowsheetCorey Kiesha DO Work Phone: noMS [place] OBGYNStart: 09-30-2025 End: 79-62-1285Kliaeg flowsheetCorey Kiesha DO Work Phone: NOMS Patti OBGYNStart: 09-28-2025 End: 00-82-2338Wrtkgh OnlyChivo Springer PA-C Work Phone: [phone]-Fdmrw Medicine at [facility] Comment on above:Essential hypertension affecting in third trimester Start: 09-26-2025 End: 81-91-7426Vvoilxwnz Result EncounterSteph Keane NP Work Phone: noms External Department UnsolicitedStart: 09-26-2025 End: 16-28-0494Dhminspfz Result EncounterSteph Keane NP Work Phone: noms External Department UnsolicitedStart: 09-21-2025 End: 22-29-0622ywgmatbnycUyedxky E Lavoy PA-C Work Phone: [phone]-Nxumr Medicine at [facility] Comment on above:Insulin controlled gestational diabetes mellitus (GDM) in third trimester (Primary Dx); Essential hypertension affecting in third trimesterStart: 09-21-2025 End: 67-05-0791Ffryoiqya encounterVerito EDOUARD Work Phone: [phone]-Opava Medicine at [facility] Start: 09-19-2025 End: 07-27-7564Yizhokmta Result EncounterSteph Keane NP Work Phone: noms External Department UnsolicitedStart: 09-19-2025 End: 57-61-7069Derbyahtj Result EncounterSteph Keane NP Work Phone: noms External Department UnsolicitedStart: 09-17-2025 End: 08-73-1032Iilnyt Breanna CAGE Work Phone: [phone]-Wqall Medicine at [facility] Comment on above:Essential hypertension affecting in third trimester Start: 09-16-2025 End: 81-53-4647ccbptksucxDIVNC FAZIONot AvailableStart: 09-16-2025 End: 03-54-4047Ntjkvhqd flow sheetCorey Kiesha DO Work Phone: noms Patti OBGYNComment on above:29 weeks gestation of ([facility]); Third trimester ([facility]); Hypertension affecting , antepartum ([facility]); Gestational diabetes mellitus (GDM), antepartum, gestational diabetes method of control unspecified([facility])Start: 09-16-2025 End: 25-83-6711Nwluhd flowsheetCorey Kiesha DO Work Phone: N[facility] [place] OBGYNStart: 09-16-2025 End: 61-43-2970Ctbnjq flowsheetCorey Kiesha DO Work Phone: NOMS [place] OBGYNStart: 09-16-2025 End: 51-00-8925Jwxgjnffj Nirmal Harris [facility]: 09-15-2025 End: 63-18-0747OklhtmMika Springer PA-C Work Phone: [phone]-Vlyks Medicine at [facility] Comment on above:Essential hypertension affecting in third trimester Start: 09-10-2025 End: 10-37-2639Ybfhew outpatient visit 25 minutesMadhuri Monroy MD Work Phone: [facility] Medicine [place] on [place]: 28 weeks gestation of (Primary Dx); Insulin controlled gestational diabetes mellitus (GDM) in second trimester; Essential hypertension affecting in third trimesterStart: 09-10-2025 End: 50-33-5306ygcsvcoovoLSDZAQAB P DOCHEVAAccess [facility] Start: 09-04-2025 End: 59-45-0047Dlpfwu consultation new/estab patient 60 Annalee Denise MD Work Phone: [phone]-Zskul Medicine at [facility] Comment on above:Diet controlled gestational diabetes mellitus (GDM) in second trimester (Primary Dx); Essential hypertension affecting in third trimesterStart: 09-04-2025 End: 16-17-2114onwbuctuniKZUCCTNona Mc[facility] Children's Medical Centertart: 09-03-2025 End: 06-76-6472Gkezfphd flow sheetSteph Keane MANAGER FRAUD Work Phone: NORF Patti OBGYNComment on above:Hypertension affecting , antepartum ([facility]) (Primary Dx); 27 weeks gestation of ([facility]); Second trimester ([facility])Start: 09-03-2025 End: 58-55-7382ocaqhtrhqmKOUNEONC EBERLYNot AvailableStart: 09-03-2025 End: 64-95-0401Ixoxrf flowsheetSteph Keane MANAGER FRAUD Work Phone: NOM[facility] [place] OBGYNStart: 09-03-2025 End: 47-37-0694Wplisxcyc Result EncounterCorey Kiesha DO Work Phone: noms External Department UnsolicitedStart: 09-03-2025 End: 49-04-7907Otxbfvrkw Result EncounterCorey Kiesha DO Work Phone: noms External Department UnsolicitedStart: 09-01-2025 End: 46-25-9414Phyhxuswp encounterCha Harris RNMaternal- Medicine at [facility] Hospitaltart: 08-29-2025 End: 02-05-8946Lztxtoqms Result EncounterSteph Keane NP Work Phone: noms External Department UnsolicitedStart: 08-29-2025 End: 62-91-0472Zrhmskteu Result EncounterSteph Keane NP Work Phone: noms External Department UnsolicitedStart: 08-27-2025 End: 80-91-5491vokxzzarncUALZCFSD EBERLYNot AvailableStart: 08-27-2025 End: 50-06-6071Goagkmkz flow sheetSteph Keane MANAGER FRAUD Work Phone: NOMS Patti OBGYNComment on above:26 weeks gestation of ([facility]); Second trimester ([facility]); induced hypertension, antepartum ([facility]); Gestational diabetes mellitus (GDM) in second trimester, gestational diabetes method of control unspecified ([facility])Start: 08-27-2025 End: 89-48-8019Vdvtuc flowsheetSteph Elsa MANAGER FRAUD Work Phone: NOCY Patti OBGYNStart: 08-27-2025 End: 80-87-4442Bmgjgw flowsheetSteph Keane MANAGER FRAUD Work Phone: NOVE [place]atti OBGYNStart: 08-27-2025 End: 91-33-2940Jofhaptil Result EncounterSteph Keane MANAGER FRAUD Work Phone: noms External Department UnsolicitedStart: 08-25-2025 End: 45-85-7609Uvtpbybby Result EncounterGeneric External Data ProviderNOMS External Department UnsolicitedStart: 08-25-2025 End: 32-92-9583Iwmmtpege Result EncounterGeneric External Data ProviderNOMS External Department UnsolicitedStart: 08-24-2025 End: 31-06-5920qdujgrimocWmseww M Frey RN Work Phone: [phone]-Zvnnh Medicine at [facility] Comment on above:Gestational diabetes mellitus (GDM) in second trimester, gestational diabetes method of control unspecifiedStart: 08-21-2025 End: 42-97-3857Ooxbo abstractingScanning Provider ExternalMaternal- Medicine at [facility]tart: 08-18-2025 End: 61-98-6507Jlwwc Aura Monroy MD Work Phone: [phone]-Bgnke Medicine at [facility] Start: 08-15-2025 End: 51-64-9351exnhivkedmXYQYMVRX EBERLYFacility:FTMCStart: 08-12-2025 End: 63-87-6890Hqbinauh flow sheetCorey Kiesha DO Work Phone: noms [place] OBGYNComment on above:24 weeks gestation of ([facility]); Second trimester ([facility]); Elevated glucose tolerance testStart: 08-12-2025 End: 07-86-7974nrsoucoczyBSDOK FAZIONot AvailableStart: 08-12-2025 End: 12-03-6784bbcjefxdzoQkzkk Bryant MANISHAOFacility:FTMCStart: 08-01-2025 End: 85-57-0035nthzcpugjiO KENNETH BELTRANFacility:FTMCStart: 07-30-2025 End: 42-30-6558Gyztszq encounter statusGemartha Hurtado Ruby DO Work Phone: [facility] Work Phone: Start: 07-30-2025 End: 27-94-1562Byvfgwcs preventive med est patient 18-39 yrsGeorsherita Hurtado Charlottecarol DO Work Phone: noms [facility] 230Comment on above: Wellness examination (Primary Dx); Hypertension, unspecified type ; Lipid screeningStart: 07-30-2025 End: 89-56-7753fzylgvkmncIGMUDC R KAFTANNot AvailableStart: 07-30-2025 End: 15-47-3025Nmhgzd flowsheetEliceo Hurtado Ruby DO Work Phone: noms [facility] 230Start: 07-30-2025 End: 58-00-2982Sexzvp flowsreynoldEliceo Hurtado Ruby DO Work Phone: noms [facility] 230Start: 07-15-2025 End: 93-58-9057Pteqantk flow sheetCorey Kiesha DO Work Phone: NOKH [place] OBGYNComment on above:20 weeks gestation of ([facility]); Second trimester ([facility]); Diabetes mellitus screeningStart: 07-15-2025 End: 16-03-1102whprvqekmpCQTVP FAZIONot AvailableStart: 07-15-2025 End: 75-01-1350Wodxluafs Result EncounterCorey Kiesha DO Work Phone: NOPC External Department UnsolicitedStart: 07-15-2025 End: 54-71-2152Bcxknuoea Result EncounterCorey Kiesha DO Work Phone: NOMS External Department UnsolicitedStart: 06-22-2025 End: 94-98-2761Zrmkcimz flow sheetCorey Kiesha DO Work Phone: NONA [place] OBGYNComment on above:Sinusitis, unspecified chronicity, unspecified location (Primary Dx); Second trimester ([facility]); 17 weeks gestation of ([facility]); Screening, , for anatomic survey ([facility])Start: 06-22-2025 End: 69-94-2250epwusqabrvTLLHM FAZIONot AvailableStart: 06-22-2025 End: 11-34-8977Fijbnw flowsheetCorey Kiesha DO Work Phone: NOLG [place] OBGYNStart: 06-22-2025 End: 55-78-8222Gninop flowsheetCorey Kiesha DO Work Phone: NODI Patti OBGYNStart: 06-22-2025 End: 18-46-2060Zlfswsxq Result EncounterCorey Kiesha DO Work Phone: NORE External Department UnsolicitedStart: 05-25-2025 End: 29-02-9074fswnifankeBEEEU FAZIONot AvailableStart: 05-25-2025 End: 25-11-3520Dukvcgyf flow sheetCorey Kiesha DO Work Phone: NOJA BCP OBComment on above:Nonintractable episodic headache, unspecified headache type (Primary Dx); Second trimester ([facility]); 13 weeks gestation of ([facility])Start: 05-25-2025 End: 96-44-5959Lgjgqt flowsheetCorey Kiesha DO Work Phone: NOMS BCP OBStart: 05-25-2025 End: 12-75-4946Rsxvld flowsheetCorey Kiesha DO Work Phone: NOMS BCP OBStart: 05-04-2025 End: 68-43-9691Dexnskyyo Result EncounterCorey Kiesha DO Work Phone: NOMS External Department UnsolicitedStart: 05-04-2025 End: 14-84-3928Zbfcctuhv Result EncounterCorey Kiesha DO Work Phone: noms External Department UnsolicitedStart: 05-01-2025 End: 61-80-9265Hfvhzkzao Result EncounterCorey Kiesha DO Work Phone: noMS External Department UnsolicitedStart: 05-01-2025 End: 86-06-8735Yovhupknm Result EncounterCorey Kiesha DO Work Phone: noms External Department UnsolicitedStart: 05-01-2025 End: 92-10-1308ukhvjaxzaqJUOBSE Jose Angel AvailableStart: 05-01-2025 End: 59-82-8029Wtrbsq outpatient visit 5 minutesNoms Bcp Ob Kiesha NurseNOMS BCP OBComment on above:GA: 2i9pLrrse: 03-13-2025 End: 48-50-6104pbbfbsxttoJcupv R FAZIOFacility:FTMCStart: 03-13-2025 End: 87-69-8588Harsdiy encounter procedureCorey R KIESHA [facility] Start: 02-02-2025 End: 21-58-7794Gkdbnwy encounter procedureDenny Rodríguez MD Work Phone: [facility] Main [place] Work Phone: Start: 02-02-2025 End: 95-67-3089feerssuvixUayax Baxter MD Work Phone: [facility] Work Phone: Start: 01-22-2025 End: 57-13-3955eswccbbvqqXidrs R FAZIOFacility:FTMCStart: 01-22-2025 End: 80-44-1170Kwuuwoz encounter procedureCorey R KIESHA [facility] Start: 01-19-2025 End: 17-30-0441Gykkas outpatient visit 15 minutesCorey Kiesha DO Work Phone: noms BCP OBComment on above:Pain in female genitalia on intercourse; EndometriosisStart: 01-19-2025 End: 25-13-3051rriiptjzdwBWBQM FAZIONot AvailableStart: 01-19-2025 End: 80-39-6667Uiwsvd flowsheetCorey Kiesha DO Work Phone: NOMS BCP OBStart: 01-19-2025 End: 38-13-9011Nsvgbi flowsheetCorey Kiesha DO Work Phone: NOMS BCP OBStart: 12-30-2024 End: 29-13-6478ewjtlexomzYLDFFU R TREYANNot AvailableStart: 12-30-2024 End: 74-33-0417Rgsqtb outpatient visit 15 minutesGeorge R Charlottecarol DO Work Phone: NOCF [facility] 230Comment on above:Hypertension, unspecified type (CMS/HCC) (Primary Dx); Paroxysmal tachycardia, unspecified (CMS/HCC); Chronic right shoulder pain; Scapular dyskinesisStart: 08-18-2024 End: 79-72-1219Tpinim flowsheetCorey Kiesha DO Work Phone: noMS BCP OBStart: 08-18-2024 End: 38-63-5398Yfwwmd flowsheetCorey Kiesha DO Work Phone: noMS BCP OBStart: 08-18-2024 End: 97-82-4473Rocsbewjc Result EncounterCorey Kiesha DO Work Phone: noms External Department UnsolicitedStart: 08-18-2024 End: 55-34-6704Hyvyvqt encounter procedureCorey Kiesha DO Work Phone: [facility] Work Phone: Start: 08-18-2024 End: 62-42-6525Reippmmu preventive med est patient 18-39 yrsCorey Kiesha DO Work Phone: NOMS BCP OBComment on above:Well woman exam with routine gynecological examStart: 07-22-2024 End: 94-20-9854Wimtxy flowsheetCorey Kiesha DO Work Phone: NOMS BCP OBStart: 07-22-2024 End: 29-58-5712Buvwhu flowsheetCorey Kiesha DO Work Phone: NOFW BCP OBStart: 07-22-2024 End: 58-67-3038Ozsawh outpatient visit 15 minutesCorey Kiesha DO Work Phone: NOMS BCP OBComment on above:Dysmenorrhea, unspecified Start: 98-06-4602Zwworkzue encounterMegan Billow DO Work Phone: [facility] Centertart: 36-31-8208Ecaupnckb encounterMegan Billow DO Work Phone: WMon[facility] HospitalComment on above:Surgery CancelledStart: 02-13-2024 End: 94-53-2913Ncuaxfzms Result EncounterCorey Kiesha DO Work Phone: NOVQ External Department UnsolicitedStart: 02-13-2024 End: 77-53-3856Wmxurhtgx Result EncounterCorey Kiesha DO Work Phone: noms External Department UnsolicitedStart: 01-15-2024 End: 57-67-0822Cgxtrawue Result EncounterCorey Kiesha DO Work Phone: noms External Department UnsolicitedStart: 01-15-2024 End: 13-69-8500Ltqxeeivd Result EncounterCorey Kiesha DO Work Phone: noms External Department UnsolicitedStart: 01-10-2024 End: 73-11-3068Cxkuqg outpatient visit 15 minutesCorey Kiesha DO Work Phone: NOMS BCP OBComment on above:Menorrhagia with regular cycle; Pelvic pain in female; Uses controlStart: 78-84-2995LoiqwvAsiqc Billow DO Work Phone: [facility] CenterComment on above:Refill Request Start: 90-25-0839bvdwkxfjzqJszgm Billow DO Work Phone: Obstetrics/GynecologyComment on above:painStart: 12-10-2023 End: 60-99-9951swnecmvxfpSYAYV BILLOWFacility:[facility] Hospitaltart: 54-24-3719uvcjksdrfbAnnlv Billow DO Work Phone: REM PIRES MCStart: 08-76-3122Mvgcpmc encounter procedureMegan Billow DO Work Phone: Obstetrics/GynecologyComment on above:office visit Start: 09-12-2023 End: 11-84-5799Ctgwoxzpy department patient Berny Loco [facility] Start: 68-48-6954Xsorot pelvic examinationMegan Billow DO Work Phone: Obstetrics/GynecologyComment on above:Pelvic pain in female (Primary Dx)Start: 83-83-2301tdzfltpvziUmeby Billow DO Work Phone: Obstetrics/GynecologyComment on above:painful periods Start: 08-24-2023 End: 26-93-6831Eoxfnk pelvic examinationErin Vicker HISTORY CARD CLERK.FLORIST MANAGER Work Phone: GynecologyComment on above:High-tone pelvic floor dysfunction (Primary Dx); Chronic pelvic pain in femaleStart: 08-24-2023 End: 86-27-2936Qtcsszeywdny consultation with Kelton Downs APRN.FLORIST MANAGER Work Phone: [facility] MAINStart: 08-24-2023 End: 27-60-2026qckjgvgchfQBNW REAPERFacility:[facility] HospitalStart: 58-60-4550zxucvsyjepKbbvr Billow DO Work Phone: Obstetrics/GynecologyComment on above:painful period Start: 59-52-6898Qsxgspqsf encounterMegan Billow DO Work Phone: GynecologyComment on above:Insurance Authorization (Orilissa)Start: 07-16-2023 End: 88-06-8687caylntuzkqJDKZG BILLOWFacility:[facility] Hospitaltart: 06-12-2023 End: 70-80-0686gdyirnzcvhSDKCM BILLOWFacility:[facility] Hospitaltart: 06-12-2023 End: 14-11-2419Wirtbupetj hospital visit [facility] physicianandra [facility] (I-Stat/1.5t) RadiologyComment on above:Pelvic and perineal pain [R10.2]Start: 05-17-2023 End: 32-64-6618Dipppw pelvic examinationMegan Billow DO Work Phone: Obstetrics/GynecologyComment on above:Endometriosis (Primary Dx); Pelvic and perineal painStart: 05-17-2023 End: 56-64-5287Htjldtymdzpf consultation with kikaCharlene Rodriguez DO Work Phone: Dre [facility] CENTERtart: 05-17-2023 End: 10-37-2643yxxbvogweaPRVNJ ALAN BAXTERFacility:[facility] Start: 89-65-6537Ftorlomnh encounterMekevin Billfanny DO Work Phone: GynecologyComment on above:Vaginal BleedingStart: 05-01-2023 End: 14-87-1000jvccdkwjrqGUSEHYang Stanleycility:[facility] Start: 05-01-2023 End: 38-60-1971Xiystpu encounter Lisa Downs APRN.FLORIST MANAGER Work Phone: GynecologyComment on above:Chronic pelvic pain in female (Primary Dx); Constipation, unspecified constipation type; High-tone pelvic floor dysfunction; Diastasis of rectus abdominis; Dysmenorrhea; Other specified dyspareuniaStart: 62-96-9613jtntofmzrkWvqrs Billow DO Work Phone: Obstetrics/GynecologyComment on above:painfulStart: 01-31-2023 End: 29-28-2849Jdiegogdv department patient visitAstrit Phuc [facility] Start: 12-30-2022 End: 50-71-5740Ujsihxb encounter procedureAstrit Phuc [facility] Start: 12-05-2022 End: 40-51-8490vxbrogjrnuZSCXLifePoint Health SHSStart: 12-05-2022 End: 93-58-0437Uemrpj outpatient visit 15 minutesGin Leonorsrinath DAY Work Phone: [facility] HospitalComment on above:Pre- eclampsia, severe, delivered (Primary Dx)Start: 11-28-2022 End: 14-73-1997Kvpqkiybmw and management of inpatientAdventHealth WauchulaStart: 11-28-2022 End: 67-65-9755Qrzncovcec and management of inpatientLogansport Memorial Hospital Work Phone: [facility] POSTPARTUMComment on above:Preeclampsia, severe, third trimester (Primary Dx)Start: 11-28-2022 End: 84-89-0605Vlq-admission assessmentGregrosa DORSEY [facility] Start: 11-27-2022 End: 24-06-8577PM TriageGregrosa DORSEY [facility] Start: 07-14-2022 End: 16-64-1039Qfgxaikwt department patient visitCharlotteshayjunior Villagomez [facility] Start: 07-14-2022 End: 65-20-6610IC TriageNathan POP [facility] Start: 04-25-2022 End: 92-81-3863Iqirohk encounter procedureCAMERON DITTY [facility] Start: 04-18-2022 End: 03-67-4330lcvsepeqqrUqonnfx Ditty Other [employer] Other Start: 24-03-5200Irtkgbp encounter procedureCamdorene CarrilloyFPG GastroenterologyStart: 99-98-4766Qsrcsf outpatient visit 15 minutes Charlene Rodriguez DO Work Phone: [phone]-TUPEM-[address] Work Phone: Start: 09-29-2021 End: 27-63-3931ezertftiksXUUKG ROWENA [facility] Campuspearl Moran HospitalStart: 09-29-2021 End: 22-74-1330jdgiaszciqGCAPZ ROWENAKettering Health – Soin Medical Center HospitalStart: 45-37-6577KZNXZXvqcb Billow DO Work Phone: [phone]-MOMUA-[address] Work Phone: Start: 44-48-7016GVRMHGZSZO, Provider: Charlene Rodriguez, Status: Pen, Time: 2:45 Ina Chau MD Work Phone: [phone]-Cfgkikj-[place] Work Phone: Start: 99-45-3080Sytqh Oswaldo Chau MD Work Phone: [phone]-Foxijea-[place] Work Phone: Procedures DateProcedureProcedure DetailPerforming ClinicianStart: 09-29-5349WZ OB BPP W NON-STRESSKristina Elsa MANAGER FRAUD Work Phone: Start: 37-89-6680Oaghk dip stick/tablet rgnt non-auto w/o micrscpCorey Kiesha DO Work Phone: Start: 53-59-0898QM OB BPP W NON-STRESSKristina Elsa MANAGER FRAUD Work Phone: Start: 28-13-4427MD OB BPP W NON-STRESSKristina Elsa MANAGER FRAUD Work Phone: Start: 14-08-1568Ejggf dip stick/tablet rgnt non-auto w/o micrscpCorey Kiesha DO Work Phone: Start: 47-46-4304LRY BUNCorey Kiesha DO Work Phone: Start: 06-35-9480SJF URIC ACIDCorey Kiesha DO Work Phone: Start: 35-82-9550GBY ALTCorey Kiesha DO Work Phone: Start: 75-32-6387CID ASTCorey Kiesha DO Work Phone: Start: 34-27-7109VZO CREATININECorey Kiesha DO Work Phone: Start: 58-19-2998DJF URINE T PROTEIN CREAT RATIOCorey Kiesha DO Work Phone: Start: 26-02-7448Mmfcw dip stick/tablet rgnt non-auto w/o micrscpKristina Elsa MANAGER FRAUD Work Phone: Start: 90-89-0486UPS TOTAL PROTEIN 24 HOUR URINE Generic External Data ProviderStart: 65-63-1863CU OB BPP W NON-STRESS Steph Elsa MANAGER FRAUD Work Phone: Start: 91-48-5032GBC URINE T PROTEIN CREAT RATIO Generic External Data ProviderStart: 94-64-1889VDF CBC WITH AUTO DIFFGeneric External Data ProviderStart: 91-30-8664Ulynr dip stick/tablet rgnt non-auto w/o micrscpKristina Elsa MANAGER FRAUD Work Phone: Start: 62-88-5358Qphprqoh identified in Urine by CultureGeneric External Data ProviderStart: 96-88-4352Ifdaavh quantitative blood xcpt reagent stripNot In System Ref ProvStart: 66-89-5056MSCCEW HOUR GLUCOSE TOLERANCE 100 GM LOADNot In System Ref ProvStart: 68-53-0817Cashf dip stick/tablet rgnt non-auto w/o micrscpCorey Kiesha DO Work Phone: Start: 72-64-1450PZR 1H POST 50G LOADNot In System Ref ProvStart: 98-71-0558IFI, SERUM, OPEN SPINA BIFIDACorey Kiesha DO Work Phone: Start: 32-78-2505Jqyih dip stick/tablet rgnt non-auto w/o micrscpCorey Kiesha DO Work Phone: Start: 18-39-3112LCZLJQNXZ VAGINITIS (HTRX)Nathan Kiesha DO Work Phone: Start: 91-82-4350Efjew dip stick/tablet rgnt non-auto w/o micrscpCorey Kiesha DO Work Phone: Start: 26-01-4668Nxoxo dip stick/tablet rgnt non-auto w/o micrscpCorey Kiesha DO Work Phone: Start: 70-49-0562Iopcuxbi screenMadhuri Monroy MD Work Phone: Start: 87-40-4572Tbru scrn 1+ class nonchromoNot In System Ref ProvStart: 85-73-6133Pidrbnroir glycosylated c7sTzaqa R Kiesha DO Work Phone: Start: 78-56-1924Hcquplqcm c antibodyNot In System Ref ProvStart: 91-19-8511QVX 1&2 AB/AG SCREEN (P24 AG)Not In System Ref ProvStart: 11-86-0277Dkdw ia hepatitis b surface antigenNot In System Ref ProvStart: 94-89-7797CFAL AND SCREENNot In System Ref ProvStart: 83-69-7847IYC TESTCorey Kiesha DO Work Phone: Start: 16-22-8627Xgovn dip stick/tablet rgnt non-auto w/o micrscpCorey Kiesha DO Work Phone: Start: 45-11-9496KG OB TRANSVAGINALCorey Kiesha DO Work Phone: Start: 09-43-3752QFV,APTIMA HPV,AGE GDLNCorey Kiesha DO Work Phone: Start: 84-61-0541Yrxvlcsjvxq observation [Identifier] in Cervix by Cyto stainCorey Kiesha DO Work Phone: Start: 62-54-9559DCI 12-LEADCorey Kiesha DO Work Phone: Start: 11-41-5293LO PELVIS W/ TRANSVAGINALCorey Kiesha DO Work Phone: Start: 50-69-4614Elhr cerv/vag auto thin layer prep mnl screenCorey Kiesha DO Work Phone: Start: 00-62-0060Dsy pelvis w/o & w/contrast material Charlene Billow DO Work Phone: Start: 15-08-0898Fngfb count platelet automatedMichael O'Cormier HISTORY CARD CLERK - REINFORCING STEEL ERECTOR Work Phone: Start: 09-31-8653Kbjiq count platelet automatedCassie Constantino MD Work Phone: Start: 92-22-9171Mardl streptococcus group b amplified probe tqCassie Constantino MD Work Phone: Start: 65-54-0878QBQ and Rh group [Type] in Blood by Confirmatory Carmine Constantino MD Work Phone: Start: 46-56-2456Amsbl typing serologic Cait Constantino MD Work Phone: Start: 85-44-0178Qcqxvlorzzium metabolic panelCassie Constantino MD Work Phone: Start: 12-02-4612Qyjenejg hiv-1&hiv-2 single result Megadyne [id number]: 15-84-7439Qfrz ia hepatitis b surface antigenMegaalexis [id number]: 10-32-6613YdajxsxlrdFGBJHWK EDWARD Start: 08-30-2020 End: 34-69-8532Szhcpecm screenComment on above:Performed By: #### T+S #### [facility] [address] [place], [place] [address]Sypvg Comment: TEST TYPE + SCREEN WAS CANCELLED, 08/30/2020 13:37 JOP.Performed By: #### T+S #### [facility] [address] [place], [place] [address]Aloet: 61-42-7650JBHWJ SHOULDER OPEN DISTAL CLAVICLE EXCISION 1CAMERON LOVERockbot Comment on above:RIGHT SHOULDER OPEN DISTAL CLAVICLE EXCISIONRIGHT SHOULDER OPEN DISTAL CLAVICLE EXCISIONAppendectomyCAMERON LOVERockbot betamethasone (substance)Fredi WILLIAN comment on above:Dose #1: 11/27/22ColonoscopyCAMERON EDWARD Endoscope, device (physical object)[place] LaparoscopyTeri Chau MD Work Phone: Plan of Treatment DateCare ActivityDetailAuthorStart: [id number] Vaccines (1 of 2)Zoster Vaccines (1 of 2)[facility] HealthStart: [id number] for malignant neoplasm of cervixNOMS HealthcareStart: 16-49-8948Vkxrebdzr for malignant neoplasm of cervixPap SmearNOMS HealthcareStart: 35-79-5619Dnzxe BMI ScreeningAdult BMI ScreeningProGrand Lake Joint Township District Memorial Hospitalca Health SystemStart: 97-34-2301Uvazdti ScreeningTobacco ScreeningProGrand Lake Joint Township District Memorial Hospitalca Health SystemStart: 64-73-0190Xjmhv BMI ScreeningAdult BMI ScreeningProGrand Lake Joint Township District Memorial Hospitalca Health SystemStart: 40-70-3743Gutct BMI ScreeningAdult BMI ScreeningProMedica Health SystemStart: 11-03-2025 End: 61-67-1873Hcvynjh encounter ltlbzhuuf39/09/2025 2:30 PM EST Office Visit Maternal- Medicine at [facility] [address] [place] [address] Chivo Springer PA-C [address] [facility] [place] [address] [address] [facility]: 10-14-2025 End: 80-51-3702Bsqseef encounter enwykycju73/19/2025 3:30 PM EST Routine NOMS Patti YOUNGN [address] [place], [id number] Nathan Pop DO [address] [facility] [place] [address] NOMShalonda IYERGYNStart: 10-08-2025 End: 97-25-2155Hyrdbcj encounter gizvqfowx67/13/2025 8:00 AM EST Appointment Maternal Medicine [place] [address] [facility] [address] [place] [address] [phone] Medicine [place]Start: 10-06-2025 End: 12-86-8197Fvjgojugitpn consultation with fynehjc8710/06/2025 2:30 PM EST Telemedicine Maternal- Medicine at [facility] [address] [place] [address] Chivo Springer PA-C [address] [facility] [place] [address] [address] [facility]: 10-05-2025 End: 51-61-6822Hlfktcm encounter tplbnozin08/10/2025 3:00 PM EST Office Visit Maternal- Medicine at [facility] [address] [place] [address] Chivo Springer PA-C [address] [facility] [place] [address] [address] [facility]: 10-05-2025 End: 78-71-7567Iptsukkxscjz consultation with mxcozgu1810/05/2025 3:00 PM EST Telemedicine Maternal- Medicine at [facility] [address] [place] [phone] Chivo Springer PA-C [address] [address] [facility]: 29-75-4431UHC ( or age 60+ yrs) (1 - Risk 1-dose series)RSV ( or age 60+ yrs) (1 - Risk 1-dose series)[facility]art: 09-30-2025 End: 21-93-1742Zmuzykk encounter procedureNOMS Patti YOUNGNComment on above: ArrivedStart: 09-16-2025 End: 00-73-3454QS biophysical profile w non stress testUS biophysical profile w non stress test Imaging Routine Gestational diabetes mellitus (GDM),antepartum, gestational diabetes method of control unspecified ([facility]) Expected: 09/16/2025, Expires: 09/16/2026NOMS HealthcareComment on above:Expected: 09/16/2025, Expires: 09/16/2026Start: 09-15-2025 End: 57-89-9420Jtmrvqq encounter vjdcrtieb95/21/2025 2:50 PM EDT Routine NOMShalonda MOODY [address] [place], [id number] Zenobia Gutierrez PA [address] [place] [address] NOMShalonda Izaguirrert: 09-10-2025 End: 76-58-5257Tifwmiozrrvt consultation with cgyiimb5709/10/2025 11:00 AM EDT Telemedicine Maternal Medicine [place] [address] [phone] Madhuri Monroy MD [address] [facility] LAN, [address] [place] [address] [place] Medicine [place]: 09-10-2025 End: 07-13-6811Rqjjesj encounter gipqzvgmu85/16/2025 9:45 AM EDT Appointment Maternal Medicine [place] [address] [address] [phone] Medicine [facility]art: 09-07-2025 End: 76-51-5567Reywfot encounter procedureNOMS BCP OBStart: 09-04-2025 End: 03-91-6412Txnewes encounter ikrdzuatz62/10/2025 3:00 PM EDT Office Visit Maternal- Medicine at [facility] [address] [facility] [place] [address] Mine Denise MD [address] [facility]ha [facility], [address] [place] [address] [facility]: 09-03-2025 End: 56-30-0839Nrybzvr encounter procedureNOMS [place] OBGYNComment on above: [facility] CampusStart: 08-27-2025 End: 78-71-1858Jlcwppt encounter fwhatruwj74/02/2025 3:20 PM EDT Routine NOMShalonda [place] OBGYN [address] [place], [id number] Steph Keane NP [address] [place] [address] NOMS Patti Izaguirrert: 08-27-2025 End: 96-65-4610Uvgdats aminotransferase [Enzymatic activity/volume] in Serum or PlasmaALT Lab Routine induced hypertension, antepartum (HHS-HCC) Expected: 08/27/2025 (Approximate), Expires: 08/27/2026[facility] HealthcareComment on above:Expected: 08/27/2025 (Approximate), Expires: 08/27/2026Start: 08-27-2025 End: 96-62-8764Qnmwpkoqu aminotransferase [Enzymatic activity/volume] in Serum or PlasmaAST Lab Routine induced hypertension, antepartum (HHS-HCC) Expected: 08/27/2025 (Approximate), Expires: 08/27/2026[facility] HealthcareComment on above:Expected: 08/27/2025 (Approximate), Expires: 08/27/2026Start: 08-27-2025 End: 50-61-6488NNB W Auto Differential panel - BloodCBC and differential Lab Routine induced hypertension, antepartum (HHS-HCC) Expected: 12/2024 (Approximate), Expires: 08/27/2026[facility] HealthcareComment on above: Expected: 08/27/2025 (Approximate), Expires: 08/27/2026art: 08-27-2025 End: 78-04-7294Mbftpvzjac [Mass/volume] in Serum or PlasmaCreatinine Lab Routine induced hypertension, antepartum (HHS-HCC) Expected: 08/27/2025 (Ap proximate), Expires: 08/27/2026[facility] Work Phone: comment on above:Expected: 08/27/2025 (Approximate), Expires: 08/27/2026Start: 08-27-2025 End: 63-42-4140Solmswj dehydrogenase [Enzymatic activity/volume] in Serum or Plasma by Lactate to pyruvate reactionLactate dehydrogenase Lab Routine induced hypertension, antepartum (HHS-HCC) Expected: 08/27/2025, Expires: 08/27/2026[facility] HealthcareComment on above:Expected: 08/27/2025, Expires: 08/27/2026Start: 08-27-2025 End: 69-10-6963Dedeymq, urine, 24 hourProtein, urine, 24 hour Lab Routine induced hypertension, antepartum (HHS-HCC) Expected: 08/27/2025 (Approximate), Expires: 08/27/2026[facility] HealthcareComment on above:Expected: 08/27/2025 (Approximate), Expires: 08/27/2026Start: 08-27-2025 End: 34-59-2894Dl and pttPt and ptt Lab Routine induced hypertension, antepartum (HHS-HCC) Expected: 08/27/2025, Expires: 08/27/2026[facility] Comment on above:Expected: 08/27/2025, Expires: 08/27/2026Start: 08-27-2025 End: 64-85-6029Vuupr [Mass/volume] in Serum or PlasmaUric acid Lab Routine induced hypertension, antepartum (HHS-HCC) Expected: 08/27/2025 (Bouchra roximate), Expires: 08/27/2026[facility] HealthcareComment on above:Expected: 08/27/2025 (Approximate), Expires: 08/27/2026Start: 08-27-2025 End: 21-53-5159Podv nitrogen [Mass/volume] in Serum or PlasmaBUN Lab Routine induced hypertension, antepartum (HHS-HCC) Expected: 08/27/2025, Expires:08/27/2026[facility] HealthcareComment on above:Expected: 08/27/2025, Expires: 08/27/2026Start: 08-27-2025 End: 59-24-6944CB biophysical profile w non stress testUS biophysical profile w non stress test Imaging Routine induced hypertension, antepartum ([facility]) Gestational diabetes mellitus (GDM) in second trimester, gestational diabetes method of control unspecified ([facility]) Expected: 08/27/2025 (Approximate), Expires: 02/25/2026[facility] HealthcareComment on above:Expected: 08/27/2025 (Approximate), Expires: 02/25/2026Start: 08-24-2025 End: 22-18-1768bpituamlbm88/29/2025 1:30 PM EDT Support Visit Maternal- Medicine at [facility] [address] [place] [place] [place] [phone] Teena Sarmiento, RN [address] [facility] [place] [address] Kerline Augustin, RD [address] [facility], [address] [place] [address] [facility]: 08-24-2025 End: 18-71-3965Ntaaltr encounter kudjjyvtw37/29/2025 11:00 AM EDT Office Visit NOMS BCP OB [address] [facility] [phone] Nathan Pop, DO [address] [place] [address] NOMS BCP OBStart: 08-12-2025 End: 86-47-1240Gapvddm encounter hcnuzogvx81/17/2025 2:40 PM EDT Routine NOMShalonda YOUNGN [address] [place], [id number] Nathan Pop, DO [address] [place] [address] NOMShalonda [place] OBGYNStart: 08-12-2025 End: 99-92-2691Lolunyqrqpb of glucose 3 hours after glucose challenge for glucose tolerance testGlucose tolerance, 3 hours Lab Routine Elevated glucose tolerance test Expected: 08/12/2025 (Approximate), Expires: 08/12/2026[facility] Work Phone: comment on above:Expected: 08/12/2025 (Approximate), Expires: 08/12/2026Start: 08-12-2025 End: 96-03-2904Cnraixwjhmyt / ancillary services woafxksuvu36/17/2025 2:00 PM EDT Ancillary Procedure NOMS Patti YOUNGN [address] [place] [address] [place] [address] OIRT Patti OBGYNStart: 07-31-2025 End: 51-46-1198YBP W Auto Differential panel - BloodCBC and differential Lab Routine Hypertension, unspecified type Wellness examination Expected: 07/31/2025 (Approximate), Expires: 08/29/2025[facility] Work Phone: Comment on above:Expected: 07/31/2025 (Approximate), Expires: 08/29/2025Start: 07-31-2025 End: 62-17-2466Zpiljrggrcfzh metabolic 2000 panel - Serum or PlasmaComprehensive metabolic panel Lab Routine Hypertension, unspecified type Wellness examination Expected: 07/31/2025 (Approximate), Expires: 08/29/2025[facility] HealthcareComment on above:Expected: 07/31/2025 (Approximate), Expires: 08/29/2025Start: 07-31-2025 End: 58-67-2028Mvush 1996 panel - Serum or PlasmaLipid panel Lab Routine Wellness examination Lipid screening Expected: 07/31/2025 (Approximate), Exp ires: 08/29/2025[facility] HealthcareComment on above:Expected: 07/31/2025 (Approximate), Expires: 08/29/2025Start: 07-30-2025 End: 97-21-9527Smrbvhv encounter dkddryypl95/04/2025 3:40 PM EDT Office Visit [facility] [address] [place] [address] [place] [address] Eliceo Beltran DO [address] [place] [address] [place] [address] [facility]NOF[facility] 230Comment on above:ArrivedStart: 35-75-3339INVDY-19 Vaccine ( season)COVID-19 Vaccine ( season)[facility] HealthcareStart: 07-27-2025 Influenza vaccinationNOIL HealthcareStart: 07-15-2025 End: 46-86-4699Zhxammr encounter knnwajgcs07/20/2025 3:30 PM EDT Routine NOMS Patti OBGYN [address] [facility] [facility] [address] [place], [id number] Nathan Pop, [address] [place] [address] NOMS Patti OBGYNStart: 07-15-2025 End: 71-00-6072Datdopqzqpnd / ancillary services dykdyuzdui99/20/2025 2:30 PM EDT Ancillary Procedure NOMS Patti OBGYN [address] [facility] [place] [address] NOMS [place] OBGYNStart: 07-15-2025 End: 81-78-1960VVC panel - Blood by Automated countCBC Lab Routine Diabetes mellitus screening Expected: 07/15/2025 (Approximate), Expires: 07/15/2026[facility] Work Phone: comment on above:Expected: 07/15/2025 (Approximate), Expires: 07/15/2026Start: 07-15-2025 End: 18-72-3841Rqkaazaymvi of glucose 1 hour after glucose challenge for glucose tolerance testGlucose tolerance, 1 hour Lab Routine Diabetes mellitus screening Expected: 07/15/2025 (Approximate), Expires: 07/15/2026[facility] HealthcareComment on above:Expected: 07/15/2025 (Approximate), Expires: 07/15/2026Start: 06-22-2025 End: 66-48-9231Ilvbeiu encounter hgjmqipjr12/28/2025 2:10 PM EDT Routine NOMS Patti OBGYN [address] [facility] [address] [place], [id number] Nathan Pop, [address] [place] [address] ArrivedNOMS Patti OBGYNComment on above:ArrivedStart: 06-22-2025 End: 28-96-5466Xpgqf fetoprotein, maternalAlpha fetoprotein, maternal Lab Routine Second trimester ([facility]) 17 weeks gestation of ([facility]) Expected: 06/22/2025 (Approximate), Expires: 12/23/2025[facility] Healthcare Comment on above:Expected: 06/22/2025 (Approximate), Expires: 12/23/2025Start: 06-22-2025 End: 97-76-4754JA for pregnancyUS OB 14+ weeks anatomy scan Imaging Routine Screening, , for anatomic survey ([facility]) Expected: 06/22/2025, Expires: 09/22/2025[facility] Work Phone: comment on above:Expected: 06/22/2025, Expires: 09/22/2025Start: 05-25-2025 End: 73-17-0286Fwltlqp encounter hpofixqra19/30/2025 2:40 PM EDT Routine NOMS BCP OB [address] [facility] [place] [address] Nathan Pop, DO [address] [facility] [place] [address] NOMS BCP OBStart: 05-01-2025 End: 03-74-6627RUQ/RhABO/Rh Lab Routine Missed menses , unspecified gestational age Expected: 05/01/2025 (Approximate), Expires: 05/01/2026[facility] HealthcareComment on above:Expected: 05/01/2025 (Approximate), Expires: 05/01/2026Start: 05-01-2025 End: 80-41-0757Cehih type and Indirect antibody screen panel - BloodType and screen Lab Routine Missed menses , unspecified gestational age Expected: 05/01/2025 (Approximate), Expires: 05/01/2026[facility] Work Phone: comment on above:Expected: 05/01/2025 (Approximate), Expires: 05/01/2026Start: 05-01-2025 End: 34-22-1015Ukmbu of abuse panel - Urine by Screen methodRapid drug screen, urine Lab Routine , unspecified gestational age Encounter for supervision of normal first in first trimester Expected: 05/01/2025 (Approximate), Expires: 05/01/2026NOMS HealthcareComment on above:Expected: 05/01/2025 (Approximate), Expires: 05/01/2026Start: 01-19-2025 End: 63-78-9319Dhkembe encounter procedureNOMS BCP OBComment on above:Arrived Start: 01-19-2025 End: 02-35-8882HlczsbchhxcfAnotyvoiwalv Lab Routine Pain in female genitalia on intercourse Endometriosis Expected: 01/19/2025(Approximate), Expires: 01/19/2026 [facility] Work Phone: comment on above:Expected: 01/19/2025 (Approximate), Expires: 01/19/2026Start: 08-18-2024 End: 74-67-0255Dwjqtnq encounter procedureNOMS BCP OBComment on above:Arrived Start: 56-09-2213Qlwszhwpq vaccinationUniversity Hospitals Geneva Medical Centertart: 07-22-2024 End: 40-09-3101QA for pregnancyUS PELVIS-TRANSVAG IF INDICATED Imaging Routine Dysmenorrhea, unspecified Expected: 07/22/2024 (Approximate), Expires: 07/22/2025[facility] Work Phone: comment on above:Expected: 07/22/2024 (Approximate), Expires: 07/22/2025Start: 06-23-2024 End: 48-09-4175Eyflsro encounter idmmtddck53/29/2024 10:30 AM EDT Office Visit Obstetrics/Gynecology [address] [address] Charlene Rodriguez DO [address] [place] [address] 2 WEEK POST OPObstetrics/GynecologyComment on above:2 WEEK POST OPStart: 05-27-2024 End: 54-05-7934Kstohdtvm to same day surgery ybjiwn8005/27/2024 7:30 AM EDT - 05/27/2024 9:30 AM EDT Surgery [facility] [address] [place] [address] Charlene Rodriguez, DO [address] [place] [address] LAPAROSCOPY FULGURATION OR EXCISION OF LESIONS OF THE OVARY PELVIC VISCERA OR PERITONEAL SURFACE BY ANY METHODHolzer Health System SurgeryComment on above:LAPAROSCOPY FULGURATION OR EXCISION OF LESIONS OF THE OVARY PELVIC VISCERA OR PERITONEAL SURFACE BYANY METHODStart: 05-27-2024 End: 41-52-0276Kxmn fulg/exc ovary viscera/peritoneal surfaceLAPAROSCOPY FULGURATION OR EXCISION OF LESIONS OF THE OVARY PELVIC VISCERA OR PERITONEAL SURFACE BYANY METHOD Endometriosis 05/27/2024 7:30 AM EDTME ORStart: 05-27-2024 Subsequent hospital visit by yyzqwpiys38/02/2024 7:30 AM EDT Hospital Encounter [facility] [address] [place] [address] Charlene Rodriguez, DO [address] [place] [address] [phone] (F ax) Endometriosis [N80.9][facility] SurgeryComment on above:Endometriosis [N80.9]Start: 95-21-3312Dvdmjilep vaccinationInfluenza Vaccine (#1)[facility] HealthcareComment on above:Postponed from 07/27/2023 (Patient Refused)Start: 05-20-2024 End: 53-80-5837pbqwaqkozp08/25/2024 10:00 AM EDT [facility] LEGAL DEPARTMENT MANAGER UROL PEYTONA MOB [address] [address] [place], Uro Finishing Area Supervisor Nurse [address] [address] RN GLENNGYN UROL PEYTONA MOBComment on above:RN TEACHINGStart: 04-22-2024 End: 18-01-5354Tljtkri encounter qglyvecic80/28/2024 9:00 AM EDT Office Visit [facility] [address] [place] [address] Denny Rodríguez MD [address] [place] [address] NOMS SEP FMStart: 17-89-7911OZiY,Tdap and Td Vaccines (7 - Td or Tdap)DTaP,Tdap and Td Vaccines (7 - Td or Tdap)[facility] SystemStart: 94-88-9167XHvB/Tdap/Td Vaccines (7 - Td or Tdap)DTaP/Tdap/Td Vaccines (7 - Td or Tdap)[facility]Start: 28-71-3955Lsigz microalbumin profileDTaP,Tdap,Td Vaccine (7 - Td or Tdap)[facility] Centertart: 01-30-2024 End: 72-26-6666Saoioug encounter yvfojpwyq47/06/2024 11:10 AM EST Consult [facility] OB [address] [facility] [place] [address] Nathan Pop DO [address] [place] [address] [facility] OBStart: 01-15-2024 End: 66-43-1682Pmwwkkkioxis / ancillary services uyabjzvyee90/20/2024 8:00 AM EST Ancillary Procedure [facility] [address] [place] [address] [facility] OBStart: 01-10-2024 End: 30-83-5123UN for pregnancyUS PELVIS-TRANSVAG IF INDICATED Imaging Routine Pelvic pain in female Expected: 01/10/2024 (Approximate), Expires: 01/10/2025 [facility] Work Phone: comment on above:Expected: 01/10/2024 (Approximate), Expires: 01/10/2025Start: 53-48-9017Jgihzblxqi Health ScreeningBehavioral Health ScreeningUniversity Hospitals Geneva Medical Centertart: 79-48-4408Fwwgevbjgu AssessmentDepression AssessmentCleProMedica Defiance Regional Hospitaltart: 89-32-9065Jxrpp-19 Vaccine ( season) Covid-19 Vaccine ( season)[facility] Centertart: 35-99-4142Qctkraosh vaccinationUniversity Hospitals Geneva Medical Centertart: 50-94-6886QJBVFBXCAR ASSESSMENTDEPRESSION ASSESSMENTUniversity Hospitals Geneva Medical Centertart: 47-83-1338Aanimkwwu vaccinationInfluenza Vaccine (#1)[facility] GeneralStart: 86-76-4477MPW, Provider: Charlene Rodriguez, Status: Pen, Time: 1:30 PMFUV, Provider: Charlene Rodriguez, Status: Pen, Time: 1:30 PM XB-HLZIA-Qbcifj 320 Work Phone: Start: 07-99-2650HJC, Provider: Charlene Rodriguez, Status: Pen, Time: 11:15 AMFUV, Provider: Charlene Rodriguez, Status: Pen, Time: 11:15 AM OC-XQYIG-Lffpxh 320 Work Phone: Start: 18-44-1457QBI TESTINGPAP TESTINGUniversity Hospitals Geneva Medical Centertart: 02-21-5181Wgjggptqn for malignant neoplasm of cervixUniversity Hospitals Geneva Medical Centertart: 98-90-9849OGzJ,Tdap and Td Vaccines (1 - Tdap)DTaP,Tdap and Td Vaccines (1 - Tdap)[facility] Pinevilletart: 64-19-1446LRoE/Tdap/Td Vaccines (1 - Tdap)DTaP/Tdap/Td Vaccines (1 - Tdap)[facility]Start: 29-34-9964Tfjzk microalbumin profileUniversity Hospitals Geneva Medical Centertart: 10-09-4199Vaiqz BMI Follow Up Plan Adult BMI Follow Up PlanCarolinas ContinueCARE Hospital at Pinevilletart: 77-91-4656Ahfvr BMI ScreeningAdult BMI ScreeningCarolinas ContinueCARE Hospital at Pinevilletart: 29-24-4496ALJTMB PCP TEAM CHRONIC DISEASE VISITANNUAL PCP TEAM CHRONIC DISEASE VISITSelect [facility] Start: 27-84-1048EU CONTROLLED (<130/80)BP CONTROLLED (<130/80)[facility] Start: 21-44-8596SDYGWTUJC C SCREENINGHEPATITIS C SCREENINGSelect Medical Specialty [facility] Start: 13-63-0166Xhfnkgxuc C screeningHepatitis C ScreeningSelect Medical Specialty [facility] Start: 36-95-7470ILO SCREENINGHIV SCREENINGUniversity Hospitals Geneva Medical Centertart: 06-17-8216KVY screeningHIV ScreeningUniversity Hospitals Geneva Medical Centertart: 47-99-7394Kwhtlbi of varicella vaccinationVaricella Vaccines (1 of 2 - 13+ 2-dose series)[facility] HospitalStart: 05-68-4862Fvfmyelakc ScreeningDepression ScreeningCarolinas ContinueCARE Hospital at Pinevilletart: 47-71-0515Wvexxvk ScreeningTobacco ScreeningCarolinas ContinueCARE Hospital at Pinevilletart: 76-74-9835Pzpicalic vaccinationVaricella Vaccines (1 of 2 - 2-dose childhood series)[facility]Start: 47-64-9041DML Vaccines (1 of 1 - Standard series)MMR Vaccines (1 of 1 - Standard series)[facility] GeneralStart: 80-39-8347Xyhrbwpux vaccinationVaricella Vaccines (1 of 2 - 2-dose childhood series)[facility] Start: 12-35-9299FCCHB-19 VACCINE (#1)COVID-19 VACCINE (#1)[facility] Start: 76-67-3117PCNDFQRET B (1 of 3 - 3-dose series)HEPATITIS B (1 of 3 - 3- dose series)[facility] Centertart: 28-83-0186Gdjrnwvfz B Vaccine (1 of 3 - 3- dose series)Hepatitis B Vaccine (1 of 3 - 3-dose series)[facility] Centertart: 46-33-7264Fqmbfoghr B Vaccines (1 of 3 - 3-dose series)Hepatitis B Vaccines (1 of 3 - 3-dose series)[facility] GeneralStart: 66-31-6984Curzt panelLipid PanelSumma HealthBacteria identified in Urine by [...] 05/01/2025[facility] HealthcareComment on above:Ordered: 05/01/2025 End: 85-45-7637Ggg pelvis w/o & w/contrast materialMRI FEMALE PELVIS WO/W IVCON Radiology Routine Pelvic and perineal pain 1 [facility]ur[facility]17[facility]2023 [facility] Work Phone: Comment on above:1 Occurrences starting 05/17/2023 until 4Reagin Ab [Presence] in Serum by RPRRPR Lab Routine Missed menses , unspecified gestational age Ordered: 05/01/2025[facility] Comment on above:Ordered: 05/01/2025Rubella antibody, IgGRubella antibody, IgG Lab Routine Missed menses , unspecified gestational age Ordered: 04/2025[facility] HealthcareComment on above:Ordered: 05/01/2025 End: 31-89-0410OoxlvwC[facility] Work Phone: Comment on above:Once (Lab) for 1 Occurrences starting 11/30/2022 until 11/30/2022, 1 completed End: 46-59-4097IM for pregnancyUS OB follow up transabdominal approach Imaging Routine Gestational diabetes mellitus (GDM), antepartum, gestational diabetes method of control unspecified ([facility]-HCC) every 4 weeks for 2 Occurrences starting 09/16/2025 until 12/17/2025[facility] Work Phone: comment on above:every 4 weeks for 2 [facility]urrences [facility] 09/16/2025 [facility] Immunizations Immunization DateImmunizationNotesCare ZdxayfgcAoxpehoa55-75-6122yfxhbhspo A vaccine, adult dosageCorey Kiesha DO Work Phone: [facility] HospitalUshubgoljh57-90-7017lnbyp papilloma virus vaccine, quadrivalentCorey Kiesha DO Work Phone: [facility] HospitalGnmojuxjjx83-59-9988sxljuwflc, seasonal, injectable, preservative freeCorey Kiesha DO Work Phone: [facility] HospitalLadbqgoulf79-14-3352hwhibdkgd virus vaccine, unspecified formulationGina Moschella DO Work Phone: [facility] GeneralTqclvw69-94-2513qmurq papilloma virus vaccine, quadrivalentCorey Kiesha DO Work Phone: [facility] HospitalYnnltxmvva73-72-8947sbwqbaxst A vaccine, adult dosageCorey Kiesha DO Work Phone: [facility] HospitalCgaybglnbk43-19-3244evzne papilloma virus vaccine, quadrivalentCorey Kiesha DO Work Phone: [facility] HospitalYnxtgspvej68-97-5966kmuykpe toxoid, reduced diphtheria toxoid, and acellular pertussis vaccine, adsorbedCorey Kiesha DO Work Phone: [facility] HospitalBhijigiehr86-38-6016kuelckjcfjcqv polysaccharide (groups A, C, Y and W-135) diphtheria toxoid conjugate vaccine (MCV4P)Nathan Kiesha DO Work Phone: [facility] HospitalPtwmusrflx95-46-5600hsjwpzdaju, tetanus toxoids and acellular pertussis vaccine, unspecified formulationCorey Kiesha DO Work Phone: [facility] HospitalHtsdvvafcp79-61-2345alvfzsm, mumps and rubella virus vaccineCorey Kiesha DO Work Phone: [facility] HospitalZydajvlrrh49-74-9666lqtjisblrv vaccine, inactivatedCorey Kiesha DO Work Phone: [phone] HospitalCltcaoetug50-24-8366gygntyifdn, tetanus toxoids and acellular pertussis vaccine, unspecified formulationCorey Kiesha DO Work Phone: [phone] HealthHermann [facility] District HospitalKbfbsqqfiw37-05-7051DWZ-Vvgljsreyea influenzae type b conjugate vaccineCorey Kiesha DO Work Phone: [phone] HospitalLlegqrfehy14-91-7736ujpljaoag B vaccine, pediatric or pediatric/adolescent dosageCorey Kiesha DO Work Phone: [phone] HospitalUrfukhbpta80-81-8242putifab, mumps and rubella virus vaccineCorey Kiesha DO Work Phone: [phone] [place], [place] [address]Eojwepsdea68-83-3979calwuqrjc poliovirus vaccine, live, oralCorey Kiesha DO Work Phone: [phone] [place], [place] [address]Rqzkhnsuya95-07-2050UYJ-Gokckcanprh influenzae type b conjugate vaccineCorey Kiesha DO Work Phone: [phone] [place], [place] [address]Vruqdlqxls99-95-6575djcnlrspg B vaccine, pediatric or pediatric/adolescent dosageCorey Kiesha DO Work Phone: [phone] [place], [place] [address]Tsnqhrbpzl09-04-5080qbgpwlenb poliovirus vaccine, live, oralCorey Kiesha DO Work Phone: [phone] [place], [place] [address]Dxobrqjfou72-79-8465ATG-Yqyukhvanob influenzae type b conjugate vaccineCorey Kiesha DO Work Phone: [phone] [place], [place] [address]Cxgabamyvs86-28-7556vzjmqvfcw B vaccine, pediatric or pediatric/adolescent dosageCorey Kiesha DO Work Phone: [phone] [place], [place] [address]Hnyzwiripm39-35-4408olztqqsjl poliovirus vaccine, live, oralCorey Kiesha DO Work Phone: [phone] HealthcareNEGATED: Highlighted row has not occurred!19-94-8187mmyfyjr, mumps and rubella virus vaccineKatcarlos Ryder DO Work Phone: [facility] HealthComment on above:Deferred: Other - Rubella ImmuneNEGATED: Highlighted row has not occurred!92-50-6395lupzkhv toxoid, reduced diphtheria toxoid, and acellular pertussis vaccine, janetKathe Ryder DO Work Phone: [facility] GeneralComment on above:Deferred: No longer needed - Refused Tdap vaccine. Payers DatePayer CategoryPayerPolicy [id number] Managed Care - [facility] [id number] [facility] [id number] [id number] [id number]nrnc86-46-5709 OinkaomLJM444Z3173791-78-4248Nalecnu Health Insurance [id number] [id number] Health [id number] 2..1.719845.3.579.2.174 [id number] 2..1.874030.3.57[id number] 2..1.575952.3.57[id number] 2..1.814246.3.57[id number] 2..1.683579.3.579.[id number] 2..1.924061.3.579.[id number] 2..1.905021.3.57[id number] 2..1.053709.3.57[id number] 2.840.1.554755.3.57[id number] 2.0.1.981748.3.579.2.774911-38-3374Paqpgyi69829412 2.840.1.008279.3.579.2.590705-36-8536Zxmgwdg28270801 2.0.1.864122.3.579.2.58[id number] 2..1.079919.3.579.2.135517-70-8192Wmmtvkh48582816 2.0.1.173530.3.579.2.919074-60-2720Gbhemch68129195 2..1.378861.3.579.2.180008-70-9145Nmiklvd01100169 2..1.863562.3.579.2.[id number] 2..1.053096.3.579.2.894921-47-5517Oznbclb64851384 2..1.904351.3.579.2.171536-85-7547Nkibvvb53536053 2..1.513027.3.579.2.630218-93-3851Ntmmpzp24589045 2.0.1.368253.3.579.2.048303-49-9544Lblpexw22826925 2..1.449094.3.579.2.966144-48-8264Ayibqoh09778139 2.0.1.441398.3.579.2.317678-70-0357Hbordvf9004348 2.840.1.945110.3.579.2.194381-22-2451Araigbm5440286 2..840.1.644640.3.579.2.460140-47-4808Ahycwyj763732319 2..840.1.647364.3.579.2.561399-12-0461Aytmvaj893158965 2..840.1.807450.3.579.2.520327-85-1205Ducawur461301689 2.16.840.1.731631.3.579.2.2356Pxrzokl84808724 2.840.1.360945.3.579.2.531 Social History DateTypeDetailFacilityStart: 01-06-2021 End: 86-64-5954Gdatul uses seat beltAlways uses seat beltNOMS HealthcareStart: 12-10-2018 End: 07-56-6812Spqnbor smoking statusNever smoked tobacco (finding)[facility] Hospitaltart: 93-03-1337Gsfrgdl smoking statusNeverMarietta Memorial Hospitaltart: 01-06-2021 End: 97-75-8774Bqb Assigned At [facility] [employer] Other ToParma Community General HospitalComment on above: denies.Tobacco smoking statusMarietta Memorial Hospitaltart: 12-10-2018 End: 18-32-0066Tqnibbl use and exposureSmokeless tobacco non-userUniversity Hospitals Geneva Medical Centertart: 04-11-2023 End: 88-86-2503Wkboort intakeCurrent drinker of alcohol (finding)[facility] Centertart: 97-94-9794Rvavmki Commentmaybe a few drinks a monthSelect Medical Specialty [facility] Start: 48-76-0618Npa Assigned At [facility]boroNot on [facility] Southumtx HealthStart: 01-10-2024 End: 76-08-7643Euxibme intakeLifetime non-drinker (finding)[facility] HealthWithin the last year, have [...] got money to buy more.Never trueNOMS HealthcareStart: 18-85-7174Oifvizpxy58WXGS HealthcareStart: 92-15-6828Usfxzoq Commentcaffeine: 1-2 cups per day, coffee and popNOIL HealthcareStart: 19-73-0265Ngtzxmt SDOH IPV Hhvk8Goeud HealthStart: 35-15-1201Ospkjqx SDOH Housing Places Zygzv5Cuuzy HealthStart: 04-12-2022 [facility] HealthStart: 11-18-2022 End: 44-69-6045Dhgewlyu to SARS-CoV-2 (event)Not sureSublanchard valley health system [facility] HealthAre you now , , , , never or living with a partner? MarriedNOMS HealthcareDo you feel stress - tense, restless, nervous, or anxious, or unable to sleep at night because yourmind is troubled all the time - these days [OSQ]Only a littleNOIL HealthcareStart: 12-02-2018 End: 08-55-2279QipWraswb (finding)[facility] Hospitaltart: 37-11-8751Vnv Assigned At [facility] Hospitaltart: 08-19-2025 End: 92-44-4354Phhmicfmm beverage intakeCurrent non-drinker of alcohol (finding) [facility]onOrthoP[facility] [employer] Medical Equipment Procedure CodeEquipment CodeEquipment Original TextEquipment IdentifierDates [id number]: 08-20-2025 End: each by In Vitro route Daily Use to check FSBS four times daily [id number]: 08-20-2025 End: 14-69-1307Gkp pen needles to give insulin.[id number]: 09-04-2025 Functional Status BgviJdydjaknhjWyqlqcPoljdtqj07-10-0564Dkimf score [AUDIT-C]0 09/10/2025 10:17 AM EDT AshleyDanae [facility]09-04-2025Patient Health Questionnaire 2 item (PHQ-2) [Reported][facility] HospitalGaojsgvjco93-94-9787Iunic score [AUDIT-C]1 12/29/2024 10:25 PM EST Mychart, GenericNOMS Gkhinidxaj36-69-5809Zpr often do you have a drink containing alcohol?Monthly or less 12/29/2024 10:25 PM EST Mychart, Generic Monthly or lessNOMS Qlbeyicqnb78-47-9292Rufbiqidga status Patient does not drink 12/29/2024 10:25 PM EST Mychart, Generic Patient does not drinkNOChildren's Mercy NorthlandWhbncatwdn08-11-5318Njt often do you have 6 or more drinks on 1 occasion?Never 12/29/2024 10:25 PM EST Mychart, Generic NeverNOMS [facility] 79-76-1316Ebclkje Health Questionnaire 2 item (PHQ-2) [Reported][facility] 72-39-2184Owweyawijd StatusN/[facility]03-08-2023Functional StatusN/[facility]02-04-2023Functional StatusN/[facility]01-02-2023Functional StatusN/[facility] 07-14-2022N/[facility] Clinical Notes 04-18-2022 to 10-06-2025 Note Date & OmpgUhoaCopawkyk30-14-4860 History of Present illness Narrative* Chivo Springer PA-C - 10/06/2025 2:30 PM EST Maternal- Medicine Consultation VIDEO Patient is present at work, provider present at [facility] HISTORY OF PRESENT ILLNESS: Juhi Naidu [...] values to us weekly by e-mail to: [email or web address] or by fax to: [phone] Chivo Springer PA-C Maternal- Medicine Office phone: [phone] Chivo Springer PA-C 10/06/25 1606 documented in this encounterMercy Health [facility]iffin [facility]11-10-2025 Miscellaneous Notes* Telephone Encounter - Anjana Davalos RN - 10/05/2025 2:39 PM EST Left message for patient to send in blood sugar logs prior to video visit toady in [facility] at 3 PM. Also, Instructed patient to contact [facility] if unable to keep appointment today at [facility], then to call at [phone] option 1 to reschedule. documented in this encounterMercy Health Tiffin Hospital11-10-2025 Telephone encounter Note* Telephone Encounter - Anjana Davalos RN - 10/05/2025 2:39 PM EST Left message for patient to send in blood sugar logs prior to video visit toady in [facility] at 3 PM. Also, Instructed patient to contact [facility] if unable to keep appointment today at [facility], then to call at [phone] option 1 to reschedule. [facility]11-05-2025 History of Present illness Narrative* Radha [...] to check FSBS. Blood Glucose Monitoring Suppl (D-[employer] Glucometer) w/Device kit 1 kit, Does not [...] San infection GDM (gestational diabetes mellitus) ([facility]) Headache History of menstrual cramps ([facility]) Varicella zoster Visual impairment HISTORY PAST MEDICAL HISTORY SOCIAL HISTORY Past Medical History: Diagnosis Date Amenorrhea d/t oral contraceptive pills Endometriosis John San infection GDM (gestational diabetes mellitus) ([facility]) Headache History of menstrual cramps severe Hypertension ([facility]) x1 Varicella zoster unsure Visual impairment [...] nursing note reviewed. Exam conducted with a field laboratory operator present. Vitals: Estimated body mass index is 30.36 kg/m as calculated from the following: Height as of 07/30/25: 5' 2 . Weight as of this encounter: 166 lb. BP: 140/82 Patient's last menstrual period was 02/21/2025. Assessment/Plan ICD-10-CM 1. Third trimester ([facility]) Z34.93 POCT urinalysis dipstick manually resulted 2. 31 weeks gestation of ([facility]) Z3A.31 3. Pre-eclampsia in third trimester ([facility]) O14.93 Return OB: Patient presents today [...] of: Nathan Pop DO documented in this encounterHermann Area District HospitalYveusgyyte27-17-2158 Miscellaneous Notes* Telephone Encounter - Cha Harris [...] change for this week. documented in this encounterMercy Health Tiffin Hospital11-03-2025 Telephone encounter Note* Telephone Encounter - [...] this new insulin change for this week. [facility]10-27-2025 Miscellaneous Notes* Telephone Encounter - SILKE [...] blood sugar logs weekly. documented in this [facility]10-27-2025 Telephone encounter Note* Telephone Encounter [...] to send in blood sugar logs weekly. [facility] [employer] Fnbjfk48-61-3458 History of Present illness Narrative* Chivo Springer PA-C - 09/21/2025 12:28 PM EDT Insulin dose increased due to elevated fastings. Chivo Springer PA-C 09/21/25 1229 documented in this encounterMercy Health Tiffin Hospital10-22-2025 Miscellaneous Notes* Telephone Encounter - Cha [...] blood sugars next week. documented in this encounterMercy Health Tiffin Hospital10-22-2025 Telephone encounter Note* Telephone Encounter - [...] send in new blood sugars next week. [facility]10-22-2025 History of Present illness Narrative* Steph [...] San infection GDM (gestational diabetes mellitus) ([facility]) Headache History of menstrual cramps ([facility]) Varicella zoster Visual impairment HISTORY PAST MEDICAL HISTORY SOCIAL HISTORY Past Medical History: Diagnosis Date Amenorrhea d/t oral contraceptive pills Endometriosis John San infection GDM (gestational diabetes mellitus) ([facility]) Headache History of menstrual cramps severe Hypertension ([facility]) x1 Varicella zoster unsure Visual [...] nursing note reviewed. Exam conducted with a field laboratory operator present. Vitals: Estimated body mass index is 29.78 kg/m as calculated from the following: Height as of 25: 5' 2 . Weight as of this encounter: 162 lb 12.8 oz. BP: 120/80 Patient's last menstrual period was 02/21/2025. Assessment/Plan ICD-10-CM 1. 29 weeks gestation of ([facility]) Z3A.29 POCT urinalysis dipstick manually resulted 2. Third trimester ([facility]) Z34.93 POCT urinalysis dipstick manually resulted 3. Hypertension affecting , antepartum ([facility]) O16.9 4. Gestational diabetes mellitus (GDM), antepartum, gestational diabetes method of control unspecified ([facility]) O24.419 Return OB: Patient presents [...] and continues to report glucose log to [facility]. Follow up Ultrasound in 4 weeks. Orders Placed This Encounter Procedures POCT urinalysis dipstick manually resulted Follow Up: Patient is to return to office in 2 week for routine OB appointment. Documented by Steph Keane NP on behalf of: Nathan Pop DO documented in this encounterHermann Area District HospitalXkhucffmcp42-71-6817 History of Present illness Narrative* Madhuri Monroy MD - 09/10/2025 11:00 AM EDT Video Visit via Real-time Synchronous Audiovisual Provider Location: [facility], [facility]- MEDICINE [address] [place] [address], [address] [place] [address] Patient Location: Other [place] [facility] office Patient Location Fruit Receiver: None Video Visit Consent Statement: I discussed [...] that there are some limitations compared to gbqb-dz-mxhr evaluations. We elected to proceed. REASON FOR [...] and the other consultants, we search on Soum and all the available care everywhere epic I did review all the imaging studies of the patient available on EMR, ordered by the primary care physician and the other business systems consultant HABITS: Patient activity no restrictions, diet [...] patient is in complete care of her button breaker. Patient does have ultrasound video visit scheduled [...] the provider today? none documented in this encounterMercy Health Tiffin Hospital10-10-2025 History of Present illness Narrative* Radha [...] Yes Have you been seen here at [facility] in a previous ? No Recent ER visits or hospitalizations? 09/03/25 [place] to r/o preeclampsia. Patient states labs WNL Bring blood sugar log or meter with you today? (Please bring them with you for every visit at [facility]) Yes Flu vaccine (Sep-January)? N/A Any [...] and the other consultants, we search on Soum and all the available care everywhere epic I did review all the imaging studies of the patient available on EMR, ordered by the primary care physician and the other business systems consultant HABITS: Patient activity no restrictions, diet [...] checking blood glucose and remote evaluation through [facility] office until delivery. 5. Discontinue blood [...] patient is in complete care of her button breaker. Patient does have ultrasound video visit scheduled [...] with questions or concerns. documented in this encounterRiverview Health InstituteQuanDx Mvviag00-46-7522 History of Present illness Narrative* Steph Keane [...] meal for a total of 4times daily. mbqfgqfiqi-sqdplgs-urgichtr (Fiorinal) 50-325-40 MG capsule 1 capsule, Oral, [...] infection Headache History of menstrual cramps ([facility]) Varicella zoster Visual impairment HISTORY PAST MEDICAL HISTORY SOCIAL HISTORY Past Medical History: Diagnosis Date Amenorrhea d/t oral contraceptive pills Endometriosis John San infection Headache History of menstrual cramps severe Hypertension ([facility]) x1 Varicella zoster unsure Visual [...] nursing note reviewed. Exam conducted with a field laboratory operator present. Vitals: Estimated body mass index is 29.41 kg/m as calculated from the following: Height as of 25: 5' 2 . Weight as of this encounter: 160 lb 12.8 oz. BP: 170/90 Patient's last menstrual period was 02/21/2025. ASSESSMENT & PLAN ICD-10-CM 1. 27 weeks gestation of ([facility]) Z3A.27 POCT urinalysis dipstick manually resulted 2. Second trimester ([facility]) Z34.92 Documented by Steph Keane NP on behalf of: Steph Keane NP documented in this encounterHermann Area District HospitalBzgffzosvt91-77-4546 Miscellaneous Notes* Telephone Encounter - Cha Harris [...] to make that appt. documented in this encounterMercy Health Tiffin Hospital10-07-2025 Telephone encounter Note* Telephone Encounter - [...] asked to be transferred to the [facility] to make that appt. [facility] [employer] Dhdbrk58-95-3409 History of Present illness Narrative* Steph Keane [...] to check FSBS. Blood Glucose Monitoring Suppl ([employer] Glucometer) w/Device kit 1 kit, Does not [...] infection Headache History of menstrual cramps ([facility]) Varicella zoster Visual impairment HISTORY PAST [...] nursing note reviewed. Exam conducted with a field laboratory operator present. Vitals: Estimated body mass index is 29.23 kg/m as calculated from the following: Height as of 07/30/25: 5' 2 . Weight as of this encounter: 159 lb 12.8 oz. BP: (!) 158/92 Patient's last menstrual period was 02/21/2025. ASSESSMENT & PLAN ICD-10-CM 1. 26 weeks gestation of ([facility]) Z3A.26 POCT urinalysis dipstick manually resulted 2. Second trimester ([facility]) Z34.92 Return OB: Patient presents [...] labs and have her evaluated today at [facility] OB. I discussed with OB today and they are aware that patient is coming to be ev aluated. Orders Placed This Encounter Procedures POCT urinalysis dipstick manually resulted Follow Up: Patient is to return to office in 2 week for routine OB appointment. Documented by Steph Keane NP on behalf of: Steph Keane NP documented in this encounterHermann Area District HospitalIldwovtvar23-26-9405 Group counseling note* Group Note - Kerline [...] Face to face time was 80 minutes. [employer] Work Phone: [phone] 756-469209-29-2025 Miscellaneous Notes* Group Note - Kerline Augustin [...] time was 80 minutes. documented in this encounterRiverview Health InstituteLinchpin Harbor Beach Community HospitalOjligp04-06-1588 History of Present illness Narrative* Steph Keane [...] infection Headache History of menstrual cramps ([facility]) Varicella zoster Visual impairment HISTORY PAST [...] nursing note reviewed. Exam conducted with a field laboratory operator present. Vitals: Estimated body mass index is 27.82 kg/m as calculated from the following: Height as of 07/30/25: 5' 2 . Weight as of this encounter: 152 lb 1.9 oz. BP: 138/82 Patient's last menstrual period was 02/21/2025. ASSESSMENT & PLAN ICD-10-CM 1. 24 weeks gestation of ([facility]) Z3A.24 POCT urinalysis dipstick manually resulted 2. Second trimester ([facility]) Z34.92 POCT urinalysis dipstick manually [...] on Labetalol 100mg BID. Will refer to [facility] for evaluation. Patient deniesany Headache or blurred vision. Documented by Steph Keane NP on behalf of: Nathan Pop DO documented in this encounterHermann Area District HospitalTsoutmbyme43-56-5108 History of Present illness Narrative* Eliceo Beltran [...] Headache History of menstrual cramps Hypertension ([facility]) Varicella zoster Visual impairment Objective ?Quick [...] Orders: Lipid panel; Future documented in this encounterHermann Area District HospitalAiaikwqydm30-93-1933 History of Present illness Narrative* Christine Ravi [...] nursing note reviewed. Exam conducted with a field laboratory operator present. Vitals: Estimated body mass index is 26.48 kg/m as calculated from the following: Height as of 12/30/24: 5' 2 . Weight as of this encounter: 144 lb 12.8 oz. BP: 120/80 Patient's last menstrual period was 02/21/2025. ASSESSMENT & PLAN ICD-10-CM 1. 20 weeks gestation of ([facility]) Z3A.20 POCT urinalysis dipstick manually resulted 2. Second trimester ([facility]) Z34.92 POCT urinalysis dipstick manually [...] of: Nathan Pop DO documented in this encounterHermann Area District HospitalUfdelyyrgz34-17-7353 History of Present illness Narrative* Steph Keane [...] infection Headache History of menstrual cramps ([facility]) Varicella zoster Visual impairment HISTORY PAST [...] nursing note reviewed. Exam conducted with a field laboratory operator present. Vitals: Estimated body mass index is 26.73 kg/m as calculated from the following: Height as of 12/30/24: 5' 2 . Weight as of this encounter: 146 lb 1.9 oz. BP: 118/74 Patient's last menstrual period was 02/21/2025. ASSESSMENT & PLAN (Z34.92) Second trimester ([facility]) Plan: POCT urinalysis dipstick manually resulted, Alpha fetoprotein, maternal, Alpha fetoprotein, maternal (Z3A.17) 17 weeks gestation of ([facility]) Plan: POCT urinalysis dipstick manually resulted, Alpha fetoprotein, maternal, Alpha fetoprotein, maternal (Z36.89) Screening, , for anatomic survey ([facility]) Plan: US OB 14+ weeks [...] of: Nathan Pop DO documented in this encounterHermann Area District HospitalIufhncoeyu30-56-1634 History of Present illness Narrative* Steph Keane [...] infection Headache History of menstrual cramps ([facility]) Varicella zoster Visual impairment HISTORY PAST [...] nursing note reviewed. Exam conducted with a field laboratory operator present. Vitals: Estimated body mass index is 25.24 kg/m as calculated from the following: Height as of 12/30/24: 5' 2 . Weight as of this encounter: 138 lb. BP: 122/80 Patient's last menstrual period was 02/21/2025. ASSESSMENT & PLAN ICD-10-CM 1. Second trimester ([facility]) Z34.92 POCT urinalysis dipstick manually resulted 2. 13 weeks gestation of ([facility]) Z3A.13 Return OB: Patient presents [...] week for routine OB appointment. Documented by Stehp Keane NP on behalf of: Nathan Pop DO documented in this encounterHermann Area District HospitalHxgjrorhex58-81-8063 History of Present illness Narrative* Hina Go [...] Dysmenorrhea 03/29/2023 Endometriosis 03/29/2023 Gastroparesis 03/29/2023 Hypertension ([facility]) 03/29/2023 Intractable migraine without aura and with status migrainosus ([facility]) 03/29/2023 Migraines ([facility]) 03/29/2023 Chronic pelvic pain in female 03/29/2023 Pain in female genitalia on intercourse 03/29/2023 Pain on swallowing 03/29/2023 Panic disorder ([facility]) 03/29/2023 Patellofemoral disorders, left knee 03/29/2023 Patellofemoral disorders, right knee 03/29/2023 Posterior calcaneal exostosis 03/29/2023 Scapular dyskinesis 03/29/2023 Scoliosis 03/29/2023 Seasonal allergic rhinitis due to pollen 03/29/2023 Tachycardia, paroxysmal ([facility] CENTER) 03/29/2023 Tension headache 03/29/2023 Vitamin [...] meat, and stay away from [facility]. Patient has also been advised to [...] by: Hina Go LPN documented in this encounterHermann Area District [id number] History of Present illness Narrative* Candis Yanes, AIR COMMODORE - 01/19/2025 2:50 PM EST Reason for Appointment: Patient ID: Juhi Gama is a 29 y.o. female who presents for Painful [place] Patient presents today for Consult appointment. MEDICATIONS Current Outpatient Medications Medication Instructions ciqquteotc-secqtkfqgbouy-aidfzqre 50-325-40 MG tablet 1 tablet, Oral, Every 6 hours PRN meloxicam (MOBIC) 15 mg, Oral, Daily metoprolol succinate XL (Toprol-XL) 25 MG 24 hr tablet Take 1 tablet by mouth daily ALLERGIES No Known Allergies PROBLEMS Active Ambulatory Problems Diagnosis Date Noted Acquired equinus deformity of foot 03/29/2023 Displacement of cervical intervertebral disc without myelopathy 03/29/2023 Dysmenorrhea 03/29/2023 Endometriosis 03/29/2023 Gastroparesis 03/29/2023 Hypertension ([facility]) 03/29/2023 Intractable migraine without aura and with status migrainosus ([facility]) 03/29/2023 Migraines ([facility]) 03/29/2023 Chronic pelvic pain in female 03/29/2023 Pain in female genitalia on intercourse 03/29/2023 Pain on swallowing 03/29/2023 Panic disorder ([facility]/HCC) 03/29/2023 Patellofemoral disorders, left knee 03/29/2023 [...] nursing note reviewed. Exam conducted with a field laboratory operator present. Vitals: Estimated body mass index [...] patient and patient given direct extension to Slabbing Machine Operator for any questions/concerns pertaining to fertility. Documented by Candis Yanes LPN on behalf of: Nathan Pop DO documented in this encounterHermann Area District [id number] History of Present illness Narrative* Eliceo Beltran [...] Breast cancer Maternal Grandmother Hypertension Maternal Grandfather sachni Cancer Maternal Grandfather sachin Colon cancer Paternal [...] min Stress: No Stress Concern Present (12/29/2024) [employer] Occupational Health - Occupational Stress Questionnaire Feeling of Stress : Only a little Social Connections: Unknown (12/29/2024) Social Connection and Isolation Panel [NHANES] Frequency of Communication with Friends and Family: More than three times a week Frequency of Social Gatherings with Friends and Family: Once a week Attends Synagogue Services: Patient declined Active Member of Clubs [...] with the patient today. Current Outpatient Medications: bijfevtvyj-pmaiushwctwgb-rwgeygcw 50-325-40 MG tablet, Take 1 tablet by mouth every 6 (six) hours if needed for headaches, Disp: 20 tablet, Rfl: 0 desogestrel-ethinyl estradiol (Apri) 0.15-30 MG-MCG tablet, Take 1 tablet by mouth Daily, Disp: 21 tablet, Rfl: 12 metoprolol succinate XL (Toprol-XL) 25 MG 24 hr tablet, Take 1 tablet by mouth daily, Disp: 90 tablet, Rfl: 1 documented in this encounterHermann Area District [id number] History of Present illness Narrative* Virgen Steen LPN - 08/18/2024 11:00 AM EDT Reason for Appointment: Patient ID: Juhi Cope is a 29 y.o. female who presents for Well Women Visit Patient presents today for Annual Exam. MEDICATIONS Current Outpatient Medications Medication Instructions miquuztytw-tvbkltauiljbv-jdnvrqri 50-325-40 MG tablet 1 tablet, Oral, Every [...] 03/29/2023 Pain on swallowing 03/29/2023 Panic disorder ([facility]/HCC) 03/29/2023 Patellofemoral disorders, left knee 03/29/2023 [...] Headache History of menstrual cramps severe Hypertension ([facility]) x1 Varicella zoster unsure Visual [...] nursing note reviewed. Exam conducted with a field laboratory operator present. Vitals: Estimated body mass index [...] of: Zenobia Gutierrez PA-C documented in this encounterHermann Area District [id number] History of Present illness Narrative* Christine Ravi LPN - 07/22/2024 9:50 AM EDT Reason for Appointment: Patient ID: Juhi Cope is a 29 y.o. female who presents for Dysmenorrhea Patient presents today for Acute Visit. MEDICATIONS Current Outpatient Medications Medication Instructions drhrwreyji-innrjeifqfddy-sdxxbmqx 50-325-40 MG tablet 1 tablet, Oral, Every [...] nursing note reviewed. Exam conducted with a field laboratory operator present. Vitals: Estimated body mass index [...] of: Nathan Pop DO documented in this encounterHermann Area District [id number] Telephone encounter Note* Telephone Encounter - Candis Garces - 04/29/2024 8:23 AM EDT Received message from admin Anna Webb to cancel surgery and all appts as pt had services elsewhere [facility]06-04-2024 Miscellaneous Notes* Telephone Encounter - Candis Garces - 04/29/2024 8:23 AM EDT Received message from admin Anna Webb to cancel surgery and all appts as pt had services elsewhere documented in this encounterSelect [facility] Telephone encounter Note * Telephone Encounter - Anna De Leon - 04/25/2024 1:10 PM EDT Pt got in sooner for surgery with her local manager gyn. Please cancel surgery and all pre and post op appts. [facility]05-31-2024 Miscellaneous Notes* Telephone Encounter - Anna De Leon - 04/25/2024 1:10 PM EDT Pt got in sooner for surgery with her local manager gyn. Please cancel surgery and all pre and post op appts. documented in this encounterSelect [facility] History of Present illness Narrative* Nathan Pop, [...] nursing note reviewed. Exam conducted with a field laboratory operator present. Vitals: Estimated body mass index [...] of: Nathan Kiesha, DO documented in this encounterHermann Area District [id number] Miscellaneous Notes* Telephone Encounter - Pippa Simon [...] mg tablet Class: Normal Route: ORAL Order: [id number] E-Prescribing Status: Receipt confirmed by pharmacy (05/17/2023 [...] Center 06/23/2024 10:30 AM Charlene Rodriguez DO [facility] Appointment scheduled: As listed above Action taken: Refill request routed to clinician Pippa Simon RN January 03, 2024 4:29 PM * Telephone Encounter - Alena Tracy - 01/02/2024 3:52 PM EST Patient: Juhi Cope : 1995 Provider: Charlene Rodriguez DO Caller Phone #: [phone] (home) [phone] (cell) Reason for call: b/c refill Message routed to nurse triage Date of next visit: MEGAN: 12/10/2023 documented in this encounterSelect Medical Specialty [facility]01-15-2024 NoteHNO ID: [id number] Author: CHARLENE RODRIGUEZ DO Service: ? 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 Where to find more information [employer]: www.heart.org Contact a health care [...] provider. Document Revised: 07/27/2022 Document Reviewed: 07/27/2022 [employer]-Point Patient Education 2022 [employer]. 09/12/2023 18:18:13 Hypertension, Adult, Bkrf-le-Qplq Hypertension, Adult Hypertension is another name for [...] doctor. Keep all follow-up visits. Medicines Take orpg-yoe-laafhxa and prescription medicines only as told by [...] provider. Document Revised: 08/31/2022 Document Reviewed: 08/31/2022 [employer]-Point Patient Education 2022 [employer]. 09/12/2023 18:18:13 General Headache Without Cause, Bwzh-br-Hzfj General Headache Without Cause A headache is pain or discomfort you feel around the head or neck area. There are many causes and types of headaches. In some cases, the cause may not be found. Follow these instructions at home: Watch your condition for any changes. Let your doctor know about them. Take these steps to help with your condition: Managing pain Take ezha-zae-dlxogcx and prescription medicines only as told by [...] provider. Document Revised: 04/12/2022 Document Reviewed: 04/12/2022 [employer]Point Patient Education 2022 [employer]. Follow Up Care 09/12/2023 17:21:57 With:DENNY RODRÍGUEZ Address: [address] [place] [address] Business (1) When:09/15/2023 18:03:37 Comments:Follow-up with your primary care provider in 3 to 5 days. If symptoms worsen, do not improve, or new symptoms arise please report back to emergency department for further evaluation. [facility]10-18-2023 Evaluation + Plan noteExtracted from: [...] date 09/12/23 18:02:00 EDT, 09/12/23 18:02:00 EDT [facility]10-16-2023 Instructions* Patient Instructions* Jihan Downs APRN.CNP - 09/10/2023 9:52 AM EDT Plan: Trial baclofen suppositories - can switch to pill vaginally if suppositories are not affordable Consider Pelvic floor physical therapy - can find local provider [email or web address] Consider going back to see Dr Kuldip Downs APRN.CNP documented in this encounterSelect [facility]-2023 NoteHNO ID: [id number] Author: Charlene Rodriguez DO Service: ? Author Type: Physician Type: Progress Notes Filed: 08/30/2023 11:15 AM Note Text: Tramadol rx sent to pharmacy.[facility]10-05-2023 History of Present illness Narrative* Charlene Rodriguez DO - 08/30/2023 11:13 AM EDT Tramadol rx sent to pharmacy. documented in this encounterSelect Medical Specialty [facility]10-[facility]-2023 Miscellaneous Notes* Telephone Encounter - Chelsie Dueñas RN - 08/30/2023 10:50 AM EDT Last office visit: 08/24/2023 Assessment and Plan No diagnosis found. Trial baclofen suppositories Will send list of PTs Consider going back to Kuldip SIGNATURE: Jihan Downs APRN.FLORIST MANAGER Office visit with Dr. Rodriguez 07/16/2023 [...] understanding and agrees with treatment plan. Charlene Rodriugez DO documented in this encounterSelect Medical Specialty [facility]09-29-2023 NoteHNO ID: [id number] Author: Jihan Downs APRN.ANA LAURA Service: ? Author Type: Nurse Practitioner Type: Progress Notes Filed: 09/10/2023 9:53 AM Note Text: Women's Health Emblem Department of Benign Gynecology [facility] PATIENT NAME: Juhi Cope DATE: 08/24/2023 Patient Name and verified: Yes Patient Location: [place] This Virtual Visit was completed using My Chart Zoom platform. I have communicated my name and active licensure. The patient's identity and physical location were verified at the time of this visit. Either the patient or their legal liability claims representative has been informed of the [...] appointment yet. GI - constipation is improved [place] - hasn't tried due to pain and [...] physical therapy - or can go locally pelvicI-CAN Systemsabqunb Trial flexeril at bedtime Can consider Baclofen suppositories Continue Norethindrone - can take up to 3 months for it to stop periods, take at same time every day Relaxation techniques Jihan Downs APRN.FLORIST MANAGER OB History T0 L1 SAB0 IAB0 Ectopic0 Multiple0 Live Births0 Finishing Area Supervisor History LMP: 07/08/2023 (Exact Date), Having periods Age at Menarche: 14 Age at First : 27 Age at Menopause: Finishing Area Supervisor History Comments: Sexual Activity: Never; No [...] toxic appearing HEENT nor (more content not included)...[facility]09-29-2023 History of Present illness Narrative* Jihan Downs APRN.FLORIST MANAGER - 08/24/2023 9:24 AM EDT Images from the original note were not included. Women's Health Emblem Department of Benign Gynecology [facility] PATIENT NAME: Juhi Cope DATE: 08/24/2023 Patient Name and verified: Yes Patient Location: [place] This Virtual Visit was completed using My Chart Zoom platform. I have communicated my name and active licensure. The patient's identity and physical location wereverified at the time of this visit. Either the patient or their legal liability claims representative has been informed of the [...] appointment yet. GI - constipation is improved [place] - hasn't tried due to pain and [...] physical therapy - or can go locally pelvicI-CAN Systemsabqunb Trial flexeril at bedtime Can consider Baclofen suppositories Continue Norethindrone - can take up to 3 months for it to stop periods, take at same time every day Relaxation techniques Jihan Downs APRN.FLORIST MANAGER OB History T0 L1 SAB0 IAB0 Ectopic0 Multiple0 Live Births0 Finishing Area Supervisor History LMP: 07/08/2023 (Exact Date), Having periods Age at Menarche: 14 Age at First : 27 Age at Menopause: Finishing Area Supervisor History Comments: Sexual Activity: Never; No [...] to see Dr Rodriguez SIGNATURE: Jihan Downs, JAMI.FLORIST MANAGER Medical Decision Making: Problems: Low: Stable chronic illness Risk: Moderate: Drug management Medical Decision Making Level: 3 - Low documented in this encounterSelect Medical Specialty [facility]09-22-2023 Miscellaneous Notes* Telephone Encounter - Marilee Valdez [...] Provider: Charlene Rodriguez DO Caller Phone #: [phone] (home) [phone] (cell) Reason for call: pt calling regarding mc message., still in pain. Please call [phone] Message routed to nurse triage Date of next visit: documented in this encounterSelect Medical Specialty [facility]09-07-2023 Miscellaneous Notes* Telephone Encounter - Candis Suárez RN - 08/02/2023 11:29 AM EDT PA for orilissa completed via [employer]. Juhi Cope (Morales: [id number]) - [id number] Orilissa 150MG tablets Status: Sent To Plan [...] advise. Thanks. documented in this encounterSelect Medical Specialty [facility]08-21-2023 NoteHNO ID: [id number] Author: Charlene Rodriguez DO Service: ? 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 Author Type: Translational Specialist Type: Progress Notes Filed: 06/12/2023 4:32 [...] BY: RT Claudia(Bryant) June 12, 2023 4:32 [facility]CS[facility]-18-2023 NoteHNO ID: [id number] Author: Boo Singh RN Service: Nursing Author [...] SIGNATURE: Boo Singh RN PATIENT NAME: Juhi Cpoe DATE: June 12, 2023 TIME: 1:43 [facility]06-22-2023 NoteHNO ID: [id number] Author: Charlene Rodriguez, DO Service: ? 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 Charlene Rodriguez DO Tt: 20 minutesF[facility] Hospital06-22-2023 History of Present illness Narrative* Charlene Rodriguez DO - 05/17/2023 1:05 PM EDT Images from the original note were not included. 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 Biggest complaint is cramping. Has had 3 periods of bleeding recently - 04/22/2023 LMP, last a few days, 05/04-05/10 bleeding again 05/11/2023 started again today. Takes aygestin 5mg daily. She did not hot die picker flexeril. Encourage to hot die picker the flexeril as this will help with the cramping. Reviewed red flag bleeding symptoms that require trip to ER (soaking greater than one overnight padper hour, chest pain, shortness of breath, fatigue, palpitations).. Advised keep appt. Gives verbal understanding. Appointments for Next 60 Days Date Time Provider Location Dept Phone 05/17/2023 1:00 PM CHARLENE RODRIGUEZ [facility] [phone] Candis Suárez RN * Telephone Encounter - Tawana Nair [facility] - 05/11/2023 1:19 PM EDT Reason for call: other - Vaginal bleeding Provider name: Dr Rodriguez Additional comments: patient having more vaginal bleeding and concerned she is getting worse. Recommendation: routed to nurse triage pool documented in this encounterSelect Medical Specialty [facility]06-06-2023 Instructions* Patient Instructions* Jihan Downs APRN.ANA LAURA - 05/01/2023 11:47 AM EDT Plan Pelvic floor physical therapy - or can go locally pelvicI-CAN Systemsabqunb Trial flexeril at bedtime Can consider Baclofen [...] society ([email or web address].org) documented in this encounterSelect Medical Specialty Hospital [facility]06-06-2023 History of Present illness Narrative* Jihan Downs APRN.ANA LAURA - 05/01/2023 10:30 AM EDT Juhi Cope is a 28 year old female who presents for problem visit for pain HPI: Pain is week before period and week of period. Worse on her period for every day she's bleeding Urinary - No symptoms GI - Always constipated. No meds [place] - painful always Pain is on left [...] L0 SAB0 IAB0 Ectopic0 Multiple0 Live Births0 Finishing Area Supervisor History LMP: 03/26/2023 (Approximate), Having periods Age at Menarche: Age at First : Age at Menopause: Finishing Area Supervisor History Comments: Sexual Activity: Never; No [...] physical therapy - or can go locally [employer] Trial flexeril at bedtime Can consider [...] - Moderate documented in this encounterSelect Medical Specialty [facility]06-06-2023 NoteHNO ID: [id number] Author: Jihan Downs APRN.CNP Service: ? Author Type: Nurse Practitioner Type: Progress Notes Filed: 05/09/2023 11:46 AM Note Text: Juhi Cope is a 28 year old female who presents for problem visit for pain HPI: Pain is week before period and week of period. Worse on her period for every day she's bleeding Urinary - No symptoms GI - Always constipated. No meds [place] - painful always Pain is on left [...] L0 SAB0 IAB0 Ectopic0 Multiple0 Live Births0 Finishing Area Supervisor History LMP: 03/26/2023 (Approximate), Having periods Age at Menarche: Age at First : Age at Menopause: Finishing Area Supervisor History Comments: Sexual Activity: Never; No [...] physical therapy - or can go locally [employer] Trial flexeril at bedtime Can consider [...] management Medical Decision Making Level: 4 - [facility]erateF[facility]05-31-2023 Miscellaneous Notes* Telephone Encounter - Marilee [...] Foss RN documented in this encounterSelect Medical Specialty [facility]03-08-2023 Hospital Discharge instructions Patient Education 01/31/2023 18:59:59 [...] told by your health care provider. Take zuck-zrm-sguzbgd and prescription medicines only as told by [...] 01/03/2007 Document Revised: 10/25/2018 Document Reviewed: 01/25/2018 Easy-Point Patient Education 2020 [employer]. Follow Up Care 01/31/2023 13:43:01 With:Denny Meza Address:Unknown When:02/03/2023 18:59:31 Comments:Follow-up for evaluation of hypertension in context of known preeclampsia in the period With:DENNY RODRÍGUEZ [facility] [place] [address]- Business (1) When:Within 3 Day(s) [facility]03-08-2023 Evaluation + Plan noteExtracted from: Title:ED NoteAuthor:Mayur Mabry PA-C CDate:01/31/23 Flank pain (R10.9: Unspecifi ed abdominal pain) Headache (R51.9: Headache, unspecified) Orders: CTA Chest Hepatic Function Panel [facility]02-04-2023 Hospital Discharge instructions Patient Education 12/30/2022 13:59:51 LEGAL DEPARTMENT MANAGER - Post D&C, Hysteroscopy, LEEP or [...] Instructions - FT (Custom) (Custom) 12/30/2022 13:55:16 LEGAL DEPARTMENT MANAGER - Post D&C, Hysteroscopy, LEEP or [...] With:Denny Meza Address: [address], [place] [address] [place] [address]- Business (1) When: Unknown Comments:follow up in 1-2 weeks With:DENNY RODRÍGUEZ Address: [address] [place] [place] [address]- Business (1) When:01/02/2023 09:21:18 [facility]02-04-2023 Evaluation + Plan noteExtracted from: [...] from:Title:ANES Pre-operative NoteAuthor:Kenneth Agustin MDDate: 12/30/22 Plan [place] Society of Anesthesiologists (ASA) physical status classification: [...] With Cult Reflex US Pelvis Non-OB Complete [facility]01-10-2023 History of Present illness Narrative* [...] CENTER: This patient was seen in the [facility] by the resident. I reviewed and agree with the care provided by the resident during or immediately following the visit including the patient's medical history, the resident's finding in the physical exam, patient's diagnosis and treatment plan. documented in this [facility]01-07-2023 NoteDepartment of Obstetrics and Gynecology Delivery Discharge Summary Admission on 11/28/2022 12:24 AM Hospital course: Juhi Cope at 35w1d admitted as a transfer from [facility]. She was started on Magnesium there [...] Information for the patient's : Francie Cope [[id number]] female 2425 g (5 lb 5.5 oz) Apgars: Information for the patient's : Francie Cope [[id number]] : Infant: Girl Blood Type/Rh: O Antibody [...] Your Medications These medications were sent to [facility] [address] [place], [place] [id number] Hours: Sunday to Sunday 10 am to [...] [] Order the blood pressure log through [employer] [x] Place an office visit or telephone [...] her physician if any of these occur.[facility]01-07-2023 History of Present illness Narrative* Anna [...] NOTE - VAGINAL DELIVERY POST DAY #1 uJhi Cope, 27 y.o. This patient was seen [...] with more than 50% of the total vars-py-oegc time of the visit in counseling/coordination of [...] be monitored and followed by the diet line service technician. CRISS Oshea * Alejandra Arcos RN [...] Pt resting comfortably in bed. Per Dr. Tarn, continue cytotec and defer FB until 2 cm. Cytotec x3 placed at this time. FHT cat I and reassuring. CCM. Cx:/-3 FHT: Cat 1 Haystack:q3-4 min A/P: 1. IOL-PreEwSF. FHT 130 baseline, with moderate variability, Accelerations present Yes, and rare late deceleration . Cervical exam unchanged. Cytotec x4 placed at this time. Patient intermittently feeling contractions. BP mild range. Cx: 1-/-3 FHP: defer FHT: Cat I Haystack: a3-4min A/P: 1. IOL-PreEwSF: FHT Category I, [...] Cx: unchanged FHP: defer FHT: Cat I Haystack: q4min A/P: 1. IOL-PreEwSF: FHT Category I, [...] 11/29/2022 6:17 AM Cx:1-2/60/-3 FHT: Cat I Haystack:q4-5mins A/P: 1. IOL-PreEwSF: Cat I FHT with [...] per protocol. CCM. Cx:defer FHT: Cat I Haystack:q4-6mins A/P: 1. IOL-PreEwSF: Cat I FHT with baseline 120, moderate variability, spontaneous accelerations, and no decelerations. BP normotensive to mild range since last note time. Pitocin @ 2 cc/hr, continue to titrate per protocol. Magnesium sulfate running for seizure prophylaxis, UOP 400 ml over past 4hours. CCM. Cx:defer FHT: Cat I Haystack:q4-5mins A/P: 1. IOL-PreEwSF: Cat I FHT with baseline 135, moderate variability, spontaneous accelerations, and no decelerations. BP normotensive to mild range since last note time. Pitocin @ 6 cc/hr, continue to titrate per protocol. Magnesium sulfate running for seizure prophylaxis, UOP 600 ml over past 4hours. Will plan for AROM soon. CCM. Cx:defer FHT: Cat I Haystack:irritability A/P: 1. IOL-PreEwSF: Pit @ 8 mu/min. Patient resting comfortably and only irritability tracing on toco. BP most recently mild range. On magnesium sulfate for seizure prophylaxis. UOP adequate. Continue magnesium and continue to titrate pitocin per protocol. Plan for AROM once patient rudi more regularly. Electronically signed by Cortney Velasquez DO 11/29/2022 4:21 PM Cx:470/-3 FHT: Cat 1 Haystack:Not tracing A/P: 1. IOL-PreEwSF. FHT 135 baseline, with moderate variability, Accelerations present Yes, and nodecelerations seen . AROM at this time for moderate amount blood tinged fluid. Pitocin at 8cc/hr. Maternal BP mild range. On Magnesium for Seizure prophylaxis. Patient with adequate urinary output. CCM. Cx: defer FHP: defer FHT: Cat II Haystack: not tracing well A/P: 1. IOL-PreEwSF: FHT [...] per RN FHP: defer FHT: Cat II Haystack: q4min A/P: 1. IOL-PreEwSF: FHT Category II for periods of minimal variability likely due to magnesium,accelerations present, and decelerations absent. Blood pressure mild. Magensium sulfate running for seizure prophylaxis. Will plan for SVE soon to assess for adequate labor progression. PRINCE BRADY DO 11/29/2022 9:58 PM Patient complete and +1. Dr Bowdne updated and on her way into the [...] delivery note for details documented in this [facility]01-07-2023 Hospital course Narrative* César Tran DO - 12/02/2022 12:32 PM EST Images from the original note were not included. Department of Obstetrics and Gynecology Delivery Discharge Summary Admission on 11/28/2022 12:24 AM Hospital course: Juhi Cope at 35w1d [facility] startedon Magnesium there [...] Information for the patient's : Francie Cope [[id number]] female 2425 g (5 lb 5.5 oz) Apgars: Information for the patient's : Francie Cope [[id number]] : : Girl Blood Type/Rh: O Antibody [...] Your Medications These medications were sent to [facility] [address] [place] [address] Hours: Sunday to Sunday 10 am to [...] [] Order the blood pressure log through [employer] [x] Place an office visit or telephone [...] any of these occur. documented in this [facility]01-06-2023 Note* Care Coordination - Christine Michelle [...] home. Denies any concerns at this time. [id number]* Care Coordination - Christine Michelle RN [...] home. Denies any concerns at this time. [id number] Miscellaneous Notes* Care Coordination - Christine Michelle [...] PreEwSF Post-operative Diagnosis: Live Born female Delivering Curing Pickling Packer & Gas Appliance Repairer(s): Dr. Bowden; Dr. Kramer Information: Information for the patient's : Francie Cope [[id number]] Information for the patient's : Francie Cope [[id number]] Description: normal Meconium Noted: No Anesthesia: epidural [...] Immunity Status: No results found for: CAITY Kraemr DO 11/30/2022, 4:04 AM Associated attestation - Carol Bowden MD - 12/01/2022 8:22 AM EST Procedures or Surgery: I was present for all morales elements of the procedure or surgery as described in the resident note. * Care Plan - Clotilde Mg RN - 11/29/2022 7:45 AM EST The patient will continue to make cervical change. Clotilde Mg RN documented in this [facility]01-06-2023 Obstetrics Note* Note - Ligia Bridges RN - 12/01/2022 9:00 AM EST 22.5mm flanges given to patient. Encouraged her to call for observation of pump session and smallerflanges. Martha in NICU to assist with personal pump. [id number] Hospital Discharge instructions* Discharge Instructions* Carol Bowden [...] as 8 weeks after delivery. Bleeding may hot die picker and then decrease again around 7-10 [...] avoid constipation you may take a mild aiwt-jfp-rujyhlq stool softener (such as colace) as recommended [...] positive or a Person Under Investigation (PUI) Ymgdpo-co-rfoxb transmission of COVID-19 during is unlikely, but after a baby is susceptible to iaxwbu-xq-jgluuu spread. After your baby is born, your [...] clean your hands with an alcohol-based hand in mold coater that contains at least 60% alcohol. Clean your hands often Wash your hands often with soap and water for at least 20 seconds, especially after blowing your nose, coughing, or sneezing; going to the bathroom; and before eating or preparing food. If soap and water are not readily available, use an alcohol-based hand in mold coater with at least 60% alcohol, covering all [...] healthcare provider to call the local or [facility]. Persons who are placed underactive [...] isolation precautions should be made on a ifre-qd-ynjg basis, in consultation with healthcare providers and [...] respiratory tract signs and symptoms. Ways to [employer] with Anxiety & Stress It is normal [...] an illness that was first found in [facility], in October 2019. It has since spread [...] seen in people before. This virus spreads xfadze-op-gkkjml through droplets from coughing and sneezing. It [...] water aren't available, use an alcohol-based hand in mold coater. Call 911 anytime you think you may [...] of: February 25, 2020 Content Version: 12.4 DNsolution. Care instructions adapted under license by your [...] handles, desks, toilets, faucets, sinks) with household systems software developer and EPA-registered disinfectants that are appropriate for [...] appropriate. These supplies include tissues, paper towels, systems software developer and EPA-registered disinfectants (see list link at [facility] website). If a separate bathroom is [...] be used for other purposes. Consult the ethnic origins teacher's instructions for cleaning and disinfection products used. [...] used if appropriate for the surface. Follow ethnic origins teacher's instructions for application and proper ventilation. Check [...] for harder to kill viruses. Follow the ethnic origins teacher's instructions for all cleaning and disinfection products (e.g., concentration, application method and contact time, etc.). Soft (porous) surfaces such as carpeted floor, rugs, and drapes Remove visible contamination if present and clean with appropriate systems software developer indicated for use on these surfaces. After cleaning: Launder items as appropriate in accordance with the ethnic origins teacher's instructions. If possible, launder items using the [...] items as appropriate in accordance with the ethnic origins teacher's instructions. If possible, launder items using the warmest appropriate water setting for the items and dry items completely. Dirty laundry from an ill person can be washed with other people's items. Clean and disinfect clothes hampers according to guidance above for surfaces. If possible, considerplacing a bag machine adjuster that is either disposable (can be thrown away) or can be laundered. [facility] has a list of EPA approved cleaning products on their website - https://www.cdc.gov/coronavirus/ 2019-ncov/community/home/cleaning-disinfection.html https://www.Epic!/Yzobd-Khbdcgrlntw-Jwhwfgsr-Products-List.pdf Team Apart with delivery and hot die picker services: [employer]: Free hot die picker at locations Delivery is $12.95 a month Website - [employer]: Field Counsel $2.95 (1st order is free) Delivery is $14.95 Website - [employer] [place]: motor tune up specialist is free Delivery is $5.95 Website [employer]: motor tune up specialist is $4.95 Delivery is $9.95 Website [employer]: motor tune up specialist is $4.95 Delivery is $9.95 Website [employer]: Can be ordered for delivery and hot die picker with [employer] Website - www.[employer]: Free deliver for first 3 orders of $35 or more Website - [employer] Will deliver from [employer], [employer], [employer], and [employer]. Annual membership is $99 Monthly membership is $14 * Attachments The following attachments cannot be sent through Care Everywhere. * Preeclampsia Discharge Instructions (Ivorian) documented in this [facility]01-05-2023 Obstetrics Note* Note - Sheila Harrell RN - 11/30/2022 10:37 AM EST Swabs given to patient and educated how to use and to bring to [facility] [id number] Obstetrics Note* Note - Sheila Harrell RN [...] in [facility] for smaller flange sizes [facility] [id number] NotePatient: Juhi Cope Procedure Summary Date: 11/29/22 [...] once all PACU criteria has been met.[facility]01-05-2023 NotePatient: Juhi Cope Procedure Summary Date: [...] opportunity for questions and acknowledgement of understanding.[facility]01-05-2023 Labor and delivery summary note* L&D Delivery Note - Irina Kramer DO - 11/30/2022 4:04 AM EST Images from the original note were not included. Vaginal Delivery Note Department of Obstetrics and Gynecology Patient: Juhi Cope : 1995 Date of delivery: 11/30/2022 Pre-operative Diagnosis: Juhi Sidhu at 35w1d 1. <37 weeks 2. 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 Bowden; Dr. Kramer Information: Information for the patient's : Francie Cope [[id number]] Information for the patient's : Francie Cope [[id number]] Description: normal Meconium Noted: No Anesthesia: epidural [...] in the resident note. [id number] NoteEpidural Block Time Out: 11/29/2022 6:17 PM Patient location during procedure: OB Start time: 11/29/2022 6:18 PM End time: 11/29/2022 6:45 PM Reason for block: labor analgesia Staffing Performed: REINFORCING STEEL ERECTOR Resident/REINFORCING STEEL ERECTOR: Jimmie Kaur APRN - REINFORCING STEEL ERECTOR Preanesthetic Checklist Completed: patient identified, IV checked, [...] tolerated procedure well with no immediate complications[facility]01-04-2023 Plan of care note* Care Plan - Clotilde Mg RN - 11/29/2022 7:45 AM EST The patient will continue to make cervical change. Clotilde Mg RN [id number] NotePatient: Juhi Cope Procedure Information Date: 11/28/22 [...] patient is not NPO Additional Equipment RequestsAspirus [facility]weenaw Hospital01-03-2023 NoteLabor Progress Note Date: 11/28/2022 Time: [...] and reassuring. CCM. Cx:-3 FHT: Cat 1 Haystack:q3-4 min A/P: 1. IOL-PreEwSF. FHT 130 baseline, with moderate variability, Accelerations present Yes, and rare late deceleration . Cervical exam unchanged. Cytotec x4 placed at this time. Patient intermittently feeling contractions. BP mild range. Cx: 1--3 FHP: defer FHT: Cat I Haystack: a3-4min A/P: 1. IOL-PreEwSF: FHT Category I, [...] Cx: unchanged FHP: defer FHT: Cat I Haystack: q4min A/P: 1. IOL-PreEwSF: FHT Category I, [...] 11/29/2022 6:17 AM Cx:1-2/60/-3 FHT: Cat I Haystack:q4-5mins A/P: 1. IOL-PreEwSF: Cat I FHT with [...] per protocol. CCM. Cx:defer FHT: Cat I Haystack:q4-6mins A/P: 1. IOL-PreEwSF: Cat I FHT with baseline 120, moderate variability, spontaneous accelerations, and no decelerations. BP normotensive to mild range since last note time. Pitocin @ 2 cc/hr, continue to titrate per protocol. Magnesium sulfate running for seizure prophylaxis, UOP 400 ml over past 4 hours. CCM. Cx:defer FHT: Cat I Haystack:q4-5mins A/P: 1. IOL-PreEwSF: Cat I FHT with baseline 135, moderate variability, spontaneous accelerations, and no decelerations. BP normotensive to mild range since last note time. Pitocin @ 6 cc/hr, continue to titrate per protocol. Magnesium sulfate running for seizure prophylaxis, UOP 600 ml over past 4 hours. Will plan for AROM soon. CCM. Cx:defer FHT: Cat I Haystack:irritability A/P: 1. IOL-PreEwSF: Pit @ 8 mu/min. Patient resting comfortably and only irritability tracing on toco. BP most recently mild range. On magnesium sulfate for seizure prophylaxis. UOP adequate. Continue magnesium and continue to titrate pitocin per protocol. Plan for AROM once patient rudi more regularly. Electronically signed by Cortney Velasquez DO 11/29/2022 4:21 PM Cx:/-3 FHT: Cat 1 Haystack:Not tracing A/P: 1. IOL-PreEwSF. FHT 135 baseline, with moderate variability, Accelerations present Yes, and no decelerations seen . AROM at this time for moderate amount blood tinged fluid. Pitocin at 8cc/hr. Maternal BP mild range. On Magnesium for Seizure prophylaxis. Patient with adequate urinary output. CCM. Cx: defer FHP: defer FHT: Cat II Haystack: not tracing well A/P: 1. IOL-PreEwSF: FHT Category II for brief period of lates vs early deceleration (more content not included)...[facility]01-03-2023 NoteObstetrical History and Physical CHIEF COMPLAINT: [...] 34w6d Is this patient being delivered between 93g7k-30c7k weeks with an acceptable medical indication (obstetric, maternal, and/or )? NA: Not Applicable: This patient is being delivered outside of the PC-01 range (93f5l-04g6q) for reasons indicated in the medical record. [...] Prophylaxis: Not Indicated (more content not included)...[facility]01-03-2023 History and physical note* Cassie Constantino [...] 34w6d Is this patient being delivered between 59y2r-79p6e weeks with an acceptable medical indication (obstetric, maternal, and/or )? NA: Not Applicable: This patient is being delivered outside of the PC-01 range (12o5z-30j4b) for reasons indicated in the medical record. [...] MD 11/28/2022, 12:48 AM [facility] [id number] History and physical note* Cassie Constantino MD [...] 34w6d Is this patient being delivered between 09m0i-09s1i weeks with an acceptable medical indication (obstetric, maternal, and/or )? NA: Not Applicable: This patient is being delivered outside of the PC-01 range (22x3r-32u0h) for reasons indicated in the medical record. [...] MD 11/28/2022, 12:48 AM documented in this [facility]01-02-2023 Evaluation + Plan note Extracted from:Title:OB High Risk Antepartum Visit *Author:Fredi DORSEY MD Date:11/27/22 Impression and Plan Diagnosis 34 weeks 5 days. Preeclampsia. contractions. Maternal tachycardia.. Course: Worsening, New onset headache may be a signal of worsening symptoms of preeclampsia.. Orders I discussed this case with the maternal- medicine department at [facility] in [facility], Dr. Thea Nieves, she accepted to transfer due to preeclampsia. Plan: Magnesium sulfate per protocol, betamethasone, transfer arrangements are in progress..[facility]08-19-2022 Evaluation + Plan note Extracted [...] Colace and Proctofoam and follow-up with her LEGAL DEPARTMENT MANAGER physician in the outpatient setting. She is provided with a note for work. Additional diagnosis: Constipation, UTI and [facility]08-19-2022 Hospital Discharge instructions Follow Up Care 07/14/2022 06:07:36 With:Denny Meza Address:Unknown When:07/17/2022 07:24:48 With:DENNY RODRÍGUEZ Address: [address] [place] [place] [address] Business (1) When:Within 3 Day(s) [facility]08-19-2022 Hospital Discharge instructions Follow Up Care 07/14/2022 04:40:16 With:Denny Meza Address: [address], [address] [place] [address]- Business (1) When:07/17/2022 Comments:Appointment has already been scheduledCall Dr if fever>100.5 F, heavy bleedingCall for any problems.Call for severe abdominal painCall physician for heavy vaginal bleedingCall physician if symptoms worsenPlease call if you need to rescheduleReturn for contractions closer, longer, harderReturn ifruptured membranes or vaginal bleeding [facility]05-31-2022 Evaluation + Plan note Diagnostic Tests Pending * Yxzvb-5-Obsmyiouuyd 04/25/22 * NIGEL w/Reflex if POS 04/25/22 * Ceruloplasmin 04/25/22 * HCV Antibody RFX to Quant PCR 04/25/22 * HBV Core Ab 04/25/22 * Hepatitis B Surface Antibody 04/25/22 * Hepatitis B Surface Antigen 04/25/22 * Smooth Muscle Antibody Screen 04/25/22 [facility]05-24-2022 Evaluation note* Encounter Date Diagnosis Assessment Notes Treatment Notes Treatment Clinical Notes March, Elevated liver function tests (I CD-10 - R79.89) LABS INDICATED ABOVE [employer] Other Evaluation note* Diagnosis Pelvic pain in female- Primary Unspecified symptom associated with female genital organs [facility] Diagnosis Chronic pelvic pain in female- Primary Unspecified symptom associated with female genital organs Constipation, unspecified constipation type High-tone pelvic floor dysfunction Other specified disorders of female genital organs Diastasis of rectus abdominis Dysmenorrhea Other specified dyspareunia documented in this [facility]* Diagnosis Endometriosis- Primary Endometriosis, site unspecified Pelvic and perineal pain Unspecified symptom associated with female genital organs [facility]* Diagnosis Pelvic pain in female- Primary Unspecified symptom associated with female genital organs [facility]* Diagnosis Pelvic pain in female- Primary Unspecified symptom associated with female genital organs documented in this encounter [facility] note* Diagnosis High-tone pelvic floor dysfunction- Primary Other specified disorders of female genital organs Chronic pelvic pain in female Unspecified symptom associated with female genital organs documented in this encounter [facility] note* Diagnosis Pelvic and perineal pain Unspecified symptom associated with female genital organs documented in this encounter [facility] note* Diagnosis Menorrhagia with regular cycle Pelvic pain in female Unspecified symptom associated with female genital organs Uses control [facility] Diagnosis Preeclampsia, severe, third trimester- Primary Preeclampsia, severe, third trimester documented [facility]* Diagnosis Pre-eclampsia, severe, delivered- Primary documented in this encounter [facility]* Diagnosis Dysmenorrhea, unspecified documented in this encounter [facility]* Diagnosis Well woman exam with routine gynecological exam Routine gynecological examination [facility]* Diagnosis Hypertension, unspecified type (CMS/HCC)- Primary Paroxysmal tachycardia, unspecified (CMS/HCC) Paroxysmal tachycardia, unspecified Chronic right shoulder pain Pain in joint, shoulder region Scapular dyskinesis Lack of coordination [facility]* Diagnosis Pain in female genitalia on intercourse Dyspareunia Endometriosis Endometriosis, site unspecified documented in this encounter [facility] HealthcareEvaluation noteNo assessment information availableC[facility] Work Phone: Evaluation note* Diagnosis Missed menses , unspecified gestational age Encounter for supervision of normal first in first trimester documented [facility]* Diagnosis Nonintractable episodic headache, unspecified headache type- Primary Second trimester ([facility]) state, incidental 13 weeks gestation of ([facility]) documented [facility]* Diagnosis Sinusitis, unspecified chronicity, unspecified location- Primary Second trimester ([facility]) state, incidental 17 weeks gestation of ([facility]) Screening, , for anatomic survey ([facility]) Encounter for anatomic survey documented [facility]* Diagnosis 20 weeks gestation of ([facility]) Second trimester ([facility]) state, incidental Diabetes mellitus screening Screening for diabetes mellitus documented in this [facility]* Diagnosis Wellness examination- Primary Hypertension, unspecified type Lipid screening Screening for lipoid disorders documented [facility]* Diagnosis Wellness examination- Primary Hypertension, unspecified type Lipid screening Screening for lipoid disorders 24 weeks gestation of ([facility]) Second trimester ([facility]) state, incidental Elevated glucose tolerance test Impaired glucose tolerance test documented [facility]* Diagnosis Gestational diabetes mellitus (GDM) in second trimester, gestational diabetes method of control unspecified [facility] Diagnosis Wellness examination- Primary Hypertension, unspecified type Lipid screening Screening for lipoid disorders 26 weeks gestation of ([facility]) Second trimester ([facility]) state, incidental induced hypertension, antepartum ([facility]) Transient hypertension of , antepartum Gestational diabetes mellitus (GDM) in second trimester, gestational diabetes method of control unspecified ([facility]) documented [facility]* Diagnosis Wellness examination- Primary Hypertension, unspecified type Lipid screening Screening for lipoid disorders Hypertension affecting , antepartum ([facility])- Primary 27 weeks gestation of ([facility]) Second trimester ([facility]) state, incidental documented [facility]* Diagnosis Diet controlled gestational diabetes mellitus (GDM) in second trimester- Primary Essential hypertension affecting in third trimester [facility] Diagnosis 28 weeks gestation of - Primary Insulin controlled gestational diabetes mellitus (GDM) in second trimester Essential hypertension affecting in third trimester [facility]* Diagnosis Essential hypertension affecting in third trimester documented in this [facility] Diagnosis Wellness examination- Primary [...] in third trimester [facility]* Diagnosis Insulin controlled gestational diabetes mellitus (GDM) in second trimester documented in this encounter [facility]* Diagnosis Insulin controlled gestational diabetes mellitus (GDM) in second trimester documented in this encounter [facility]* Diagnosis Wellness examination- Primary Hypertension, unspecified type Lipid screening Screening for lipoid disorders Third trimester (HHS-HCC) state, incidental 31 weeks gestation of (HHS-HCC) Pre-eclampsia in third trimester (HHS-HCC) documented in this encounter [facility] Healthcare[facility]* Diagnosis Insulin controlled gestational diabetes mellitus (GDM) in third trimester- Primary Essential hypertension affecting in third trimester documented [facility] SystemHistory general Narrative - Reported* Type Description Date Medical History headache Surgical HistoryappendectomySurgical Historyshoulder surgerySurgical History endometriosis [employer] Other History of Present illness Narrative* 26 [...] engaged x 1 year * working at [employer] in [place] [address] Work Phone: Hospital course Narrative No data available for this section [facility] No data available for this section [facility] CenterInstructionsNot on filedocumented in this encounter [facility] on filedocumented in this encounter [facility]ructionsNot on filedocumented in this encounter [facility]InstructionsNot on filedocumented in this encounter [facility]* Attachments The following attachments cannot be sent through Care Everywhere. * Preeclampsia (Ivor[place]) documented in this encounter[facility] SystemInstructionsNot on file documented in this encounterProMedica Health SystemInstructionsNot on file documented in this encounterProMedica Health SystemInstructionsNot on file documented in this encounterProMedica Health SystemInstructionsNot on file documented in this encounterProMedica Health SystemProgress note No data available for this section [facility] CenterReason for visit NarrativePT HERE AT REQUEST OF DR RODRÍGUEZ FOR EVALUATION AND TREATMENT OF ELVATED LIVER FUNCTION- ( DR. SAMUEL PT), LABS FROM DR RODRÍGUEZ REVIEWED BY DR Iraheta [employer] Other Summary Purpose Family History Unknown [...] Bilateral ureterolysis Surgeon: Dr. Charlene Rodriguez Resident/Fellow/Other Gas Appliance Repairer: Glory Palacio Anesthesia: general I.V. 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 [employer] Reason for Referral SpecialtyDiagnoses / ProceduresReferred By ContactReferred To ContactMR IMAGING Diagnoses Pelvic and perineal pain Procedures MRI FEMALE PELVIS WO/W IVCON MRI PELVIS W/O & W/CONTRAST MATERIAL Charlene Rodriguez DO [address] [facility] [address] [place] [address] Mr Imaging Referral IDStatusReasonSaginaw DateExpiration DateVisits RequestedVisits [id number] Auto-Generated Referral /[id number] / ProceduresReferred By ContactReferred To [facility] Diagnoses Constipation, unspecified constipation type High-tone pelvic floor dysfunction Diastasis of rectus abdominis Dysmenorrhea Other specified dyspareunia Chronic pelvic pain in female Procedures CONSULT TO PHYSICAL THERAPY PHYSICAL THERAPY EVALUATION HIGH COMPLEX 45 MINS Jihan Downs, HISTORY CARD CLERK.FLORIST MANAGER [address] [facility] [address] [place] [address] [facility] [employer] [address] [place] [id number] Referral IDStatLulacaterina DateExpiration DateVisits RequestedVisits [id number] Review Auto-Generated Referral / Chief Complaint and Reason for Visit Chief Complaint Admit Date N94.10 N80.9 February 02, 2025 3:1 6pm Additional Source Comments INFORMATION SOURCE (unrecogn ized section and content) DATE CREATED AUTHOR 10/26/2020 [facility] DATE CREATED AUTHOR AUTHOR'S ORGANIZ ATION 11/06/2020 [facility] DATE CREATED AUTHOR AUTHOR'S ORGANIZ ATION 12/17/2020 [facility] DATE CREATED AUTHOR AUTHOR'S ORGANIZ ATION 04/21/2021 [facility] DATE CREATED AUTHOR AUTHOR'S ORGANIZ ATION 06/05/2021 [facility] DATE CREATED AUTHOR AUTHOR'S ORGANIZ ATION 10/02/2021 [facility] DATE CREATED AUTHOR AUTHOR'S ORGANIZ ATION 02/10/2022 [employer] DATE CREATED AUTHOR AUTHOR'S ORGANIZ ATION 12/05/2022 [facility] DATE CREATED AUTHOR AUTHOR'S ORGANIZ ATION 04/30/2024 [facility] DATE CREATED AUTHOR AUTHOR'S ORGANIZ ATION 02/09/2025 [facility] DATE CREATED AUTHOR AUTHOR'S ORGANIZ ATION 03/15/2025 [facility] DATE CREATED AUTHOR AUTHOR'S ORGANIZ ATION 08/03/2025 [facility] DATE CREATED AUTHOR AUTHOR'S ORGANIZ ATION 08/13/2025 [facility] DATE CREATED AUTHOR AUTHOR'S ORGANIZ ATION 08/16/2025 [facility] DATE CREATED AUTHOR AUTHOR'S ORGANIZ ATION 08/20/2025 [facility] DATE CREATED AUTHOR AUTHOR'S ORGANIZ ATION 08/21/2025 [facility] DATE CREATED AUTHOR AUTHOR'S ORGANIZ ATION 08/29/2025 [facility] DATE CREATED AUTHOR AUTHOR'S ORGANIZ ATION 09/12/2025 [facility] DATE CREATED AUTHOR AUTHOR'S ORGANIZ ATION 10/02/2025 [facility] DATE CREATED AUTHOR AUTHOR'S ORGANIZ ATION 10/08/2025 [facility] Care Team (unrecognized sect ion and content) Team MemberRelationshipSpecialtyStart DateEnd Date Denny Rodríguez MD [address] [place] [address] PCP - GeneralFamily Medicine12/03/14Team MemberRelationshipSpecialtyStart DateEnd Date Denny Rodríguez MD [address] [place] [address] PCP - GeneralFamily Medicine12/03/14Team MemberRelationshipSpecialtyStart DateEnd Date Denny Rodríguez MD [address] [place] [address] PCP - GeneralFamily Medicine12/03/14Team MemberRelationshipSpecialtyStart DateEnd Date Denny Rodríguez MD [address] [place] [address] PCP - GeneralFamily Medicine12/03/14Team MemberRelationshipSpecialtyStart DateEnd Date Denny Rodríguez MD [address] [place] [address] PCP - GeneralFamily Medicine12/03/14Team MemberRelationshipSpecialtyStart DateEnd Date Denny Rodríguez MD [address] [place] [address] PCP - GeneralFamily Medicine12/03/14Team MemberRelationshipSpecialtyStart DateEnd Date Denny Rodríguez MD [address] [place] [address] PCP - GeneralFamily Medicine12/03/14Team MemberRelationshipSpecialtyStart DateEnd Date Denny Rodríguez MD [address] [place] [address] PCP - GeneralFamily Medicine12/03/14Team MemberRelationshipSpecialtyStart DateEnd Date Denny Rodríguez MD [address] [place] [address] PCP - GeneralFamily Medicine12/03/14Team MemberRelationshipSpecialtyStart DateEnd Date Denny Rodríguez MD [address] [place] [address] [facility] - [facility]12/03/14Team MemberRelationshipSpecialtyStart DateEnd Date Denny Rodríguez MD [address] [place] [address] PCP - [place] Mfqqkcxtnk48/1/21 Denny Rodríguez MD [address] [place] [address] PCP - GeneralFatxly Medicine04/10/23 Denny Rodríguez MD [address] [place] [address] PCP - [facility]02/24/23 Zen[facility] NP [address] [place] [address] Nurse [facility]10/05/23 Trista Thao NP [address] [place] [address] Nurse PractitionerPulmonary Yxgwhva37/10/23Team MemberRelationshipSpecialtyStart DateEnd Date Denny Rodríguez MD [address] [place] [address] PCP - GeneralFamily Medicine12/03/14Team MemberRelationshipSpecialtyStart DateEnd Date Denny Rodríguez MD [address] [place] [address] PCP - [facility]12/03/14Team MemberRelationshipSpecialtyStart DateEnd Date Denny Rodríguez MD [address] [place] [id number] PCP - [place] Tlenwfritk95/1/21 Denny Rodríguez MD [address] [place] [facility] PCP - [facility]02/24/23 Eliceo Beltran DO [address] [place] [address] PCP - Generalmily Medicine02/14/24Team MemberRelationshipSpecialtyStart DateEnd Date Denny Rodríguez MD [address] [place] [address] PCP - [place] Qmgqvhxfnh08/1/21 Denny Rodríguez MD [address] [place] [address] PCP - [facility]02/24/23 Eliceo Beltran DO [address] [place] [address] PCP - [facility] Medicine02/14/24Team MemberRelationshipSpecialtyStart DateEnd Date Denny Rodríguez MD [address] [place] [address] PCP - [place] Hgxjyzenwb84/1/21 Denny Rodríguez MD [address] [place] [address] PCP - [facility]02/24/23 Eliceo Beltran DO [address] [place] [address] PCP - [facility]02/14/24Team MemberRelationshipSpecialtyStart DateEnd Date Denny Rodríguez MD [address] [place] [address] PCP - [place] Agaqkidtkz29/1/21 Denny Rodríguez MD [address] [place] [address] PCP - [facility]02/24/23 Eliceo Beltran DO [address] [place] [address] PCP - [facility]02/14/24Team MemberRelationshipSpecialtyStart DateEnd Date Denny Rodríguez MD [address] [place] [address] PCP - [place] Akafrldpfg25/1/21 Denny Rodríguez MD [address] [place] [address] PCP - [facility]02/24/23 Eliceo Beltran DO [address] [place] [address] PCP - GeneralFamily Medicine02/14/24Team MemberRelationshipSpecialtyStart DateEnd Date Denny Rodríguez MD [address] [place] [address] PCP - [place] Qrfuojlkuy69/1/21 Eliceo Beltran DO [address] [place] [address] PCP - Generalmily Medicine02/14/24Team MemberRelationshipSpecialtyStart DateEnd Date Eliceo Beltran DO [address] [place] [address] PCP - GeneralFamily Medicine02/14/24Team MemberRelationshipSpecialtyStart DateEnd Date Eliceo Beltran DO [address] [place] [address] PCP - Generalmily Medicine02/14/24 Team Status: Active [...] [address] [place] [address] PCP - [facility] Medicine02/14/24 Eliceo Beltran DO [address] [place] [address] PCP - Medical [employer]07/27/2412Team MemberRelationshipSpecialty Start DateEnd Date Eliceo Beltran DO [address] [place] [address] PCP - [facility] Medicine02/14/24 Eliceo Beltran DO [address] [place] [address] PCP - Medical [employer]07/27/2412Team MemberRelationshipSpecialty Start DateEnd Date Eliceo Beltran DO [address] [place] [address] PCP - [facility] Medicine02/14/24 Eliceo Beltran DO [address] [place] [address] PCP - Medical [employer]07/27/2412Team MemberRelationshipSpecialty Start DateEnd Date Eliceo Beltran DO [address] [place] [address] PCP - [facility] Medicine02/14/24 Eliceo Beltran DO [address] [place] [address] PCP - Medical [employer]07/27/2412Te MemberRelationshipSpecialty Start DateEnd Date Eliceo Beltran, DO [address] [place] [address] PCP - [facility] Medicine02/14/24 Eliceo Beltran, DO [address] [place] [address] PCP - Medical [employer]07/27/2412Team MemberRelationshipSpecialty Start DateEnd Date Eliceo Beltran, DO [address] [place] [address] PCP - [facility] Medicine02/14/24 Eliceo Beltran, DO [address] [place] [address] PCP - Medical [employer]07/27/2412Team MemberRelationshipSpecialty Start DateEnd Date Eliceo Beltran, DO [address] [place] [address] PCP - [facility] Medicine02/14/24 Eliceo Beltran, DO [address] [place] [address] PCP - Medical [employer]07/27/2412Te MemberRelationshipSpecialty Start DateEnd Date Eliceo Beltran, DO [address] [place] [address] PCP - Generalmily Medicine02/14/24 Elicoe Beltran, [address] [place] [address] PCP - Medical [employer]07/27/2412Team MemberRelationshipSpecialty Start DateEnd Date Eliceo Beltran DO [address] [place] [address] PCP - [facility] Medicine02/14/24 Eliceo Beltran, [address] [place] [address] PCP - Medical [employer]07/27/2412Team MemberRelationshipSpecialty Start DateEnd Date Eliceo Beltran DO [address] [place] [address] PCP - [facility] Medicine02/14/24 Eliceo Beltran DO [address] [place] [address] PCP - Medical [employer]07/27/2412Team MemberRelationshipSpecialty Start DateEnd Date Eliceo Beltran DO [address] [place] [address] PCP - [facility] Medicine02/14/24 Eliceo Beltran DO [address] [place] [address] PCP - Medical [employer]07/27/2412Team MemberRelationshipSpecialty Start DateEnd Date Denny Rodríguez MD [address] [place] [address] PCP - [facility] Medicine12/02/18 MemberRelationshipSpecialtyStart DateEnd Date Denny Rodríguez MD [address] [place] [address] PCP - [facility] Medicine12/02/18 MemberRelationshipSpecialtyStart DateEnd Date Eliceo Beltran, DO [address] [place] [address] PCP - [facility]02/14/24 Eliceo Beltran, DO [address] [place] [address] PCP - Medical [employer]07/27/2412Te MemberRelationshipSpecialty Start DateEnd Date Eliceo Beltran, DO [address] [place] [address] PCP - [facility]02/14/24 Eliceo Beltran, DO [address] [place] [address] PCP - Medical [employer]07/27/2412Te MemberRelationshipSpecialty Start DateEnd Date Eliceo Beltran, DO [address] [place] [address] PCP - [facility]02/14/24 Eliceo Beltran, DO [address] [place] [address] PCP - Medical [employer]07/27/2412Team MemberRelationshipSpecialty Start DateEnd Date Eliceo Beltran DO [address] [place] [address] PCP - GeneralFamily Medicine02/14/24 Eliceo Beltran DO [address] [place] [address] PCP - Medical [employer]07/27/2412Team MemberRelationshipSpecialty Start DateEnd Date Denny Rodríguez MD [address] [place] [address] PCP - GeneralFamily Medicine12/02/18Team MemberRelationshipSpecialtyStart DateEnd Date Eliceo Beltran DO [address] [place] [address] PCP - GeneralFamily Medicine02/14/24 Eliceo Beltran DO [address] [place] [address] PCP - Medical [employer]07/27/2412Team MemberRelationshipSpecialty Start DateEnd Date Eliceo Beltran DO [address] [place] [address] PCP - GeneralFamily Medicine02/14/24 Eliceo Beltran DO [address] [place] [address] PCP - Medical [employer]07/27/2412Team MemberRelationshipSpecialty Start DateEnd Date Denny Rodríguez MD [address] [place] [address] PCP - Generalmily Medicine12/02/18Team MemberRelationshipSpecialtyStart DateEnd Date Denny Rodríguez MD [address] [place] [address] [facility]12/02/18Team MemberRelationshipSpecialtyStart DateEnd Date Eliceo Beltran DO [address] [place] [address] [facility] Eliceo Beltran DO [address] [place] [address] PCP - Medical [employer]07/27/2412Team MemberRelationshipSpecialty Start DateEnd Date Eliceo Beltran DO [address] [place] [address] PCP - [facility] Medicine02/14/24 Eliceo Beltran DO [address] [place] [address] PCP - Medical [employer]07/27/2412Team MemberRelationshipSpecialty Start DateEnd Date Denny Rodríguez MD [address] [place] [address] [facility] - [facility]12/02/18Team MemberRelationshipSpecialtyStart DateEnd Date Denny Rodríguez MD [address] [place] [address] PCP - GeneralFamily Medicine12/02/18Team MemberRelationshipSpecialtySthinckley DateEnd Date Denny Rodríguez MD [address] [place] [address] PCP - [place] Zywgoaabcd67/1/ Denny Rodríguez MD [address] [place] [address] PCP - GeneralFamily Medicine Denny Rodríguez MD [address] [place] [address] PCP - [facility] Eliceo Beltran DO [address] [place] [address] [facility] - [facility]02/14/24 Eliceo Beltran DO [address] [place] [address] PCP - Medical [employer]07/27/2412 [facility] NP [address] [place] [address] Nurse PractitionerFamily Hipvfqce54/10/235 Trista Thao NP [address] [place] [address] Nurse PractitionerPulmonary Eybnmgl48/10/235Team MemberRelationship SpecialtyStart DateEnd Date Eliceo Beltran DO [address] [place] [address] PCP - GeneralFamily Medicine02/14/24 Eliceo Beltran [address] [place] [address] PCP - Medical [employer]07/27/2412Team MemberRelationshipSpecialty Start DateEnd Date Denny Rodríguez MD [address] [place] [address] PCP - GeneralFamily Medicine12/02/18 Source Comments (unrecognize d section and content) In the event this informatio n is protected by the Federal Confidentiality of Alcohol and Drug Abuse Patient Records regulations: The Federal rules restrict any use of the information to criminally investigate or prosecute any alcohol or drug abuse patient.[facility] the event this information is protected by the Federal Confidentiality of Alcohol and Drug Abuse Patient Records regulations: The Federal rules restrict any use of the information to criminally investigate or prosecute any alcohol or drug abuse patient.[facility]on[facility] the event this information is protected by the Federal Confidentiality of Alcohol and Drug Abuse Patient Records regulations: The Federal rules restrict any use of the information to criminally investigate or prosecute any alcohol or drug abuse patient.[facility]on[facility] the event this information is protected by the Federal Confidentiality of Alcohol and Drug Abuse Patient Records regulations: The Federal rules restrict any use of the information to criminally investigate or prosecute any alcohol or drug abuse patient.[facility]on[facility] the event this information is protected by the Federal Confidentiality of Alcohol and Drug Abuse Patient Records regulations: The Federal rules restrict any use of the information to criminally investigate or prosecute any alcohol or drug abuse patient.[facility]onIn the event this information is protected by [...] any alcohol or drug abuse patient.[facility]onIn the event this information is protected by the Federal Confidentiality of Alcohol and Drug Abuse Patient Records regulations: The Federal rules restrict any use of the information to criminally investigate or prosecute any alcohol or drug abuse patient.[facility]onIn the event this information is protected by the Federal Confidentiality of Alcohol and Drug Abuse Patient Records regulations: The Federal rules restrict any use of the information to criminally investigate or prosecute any alcohol or drug abuse patient.[facility]onIn the event this information is protected by the Federal Confidentiality of Alcohol and Drug Abuse Patient Records regulations: The Federal rules restrict any use of the information to criminally investigate or prosecute any alcohol or drug abuse patient.[facility]onIn the event this information is protected by the Federal Confidentiality of Alcohol and Drug Abuse Patient Records regulations: The Federal rules restrict any use of the information to criminally investigate or prosecute any alcohol or drug abuse patient.[facility]onIn the event this information is protected by the Federal Confidentiality of Alcohol and Drug Abuse Patient Records regulations: The Federal rules restrict any use of the information to criminally investigate or prosecute any alcohol or drug abuse patient.[facility]onIn the event this information is protected by the Federal Confidentiality of Alcohol and Drug Abuse Patient Records regulations: The Federal rules restrict any use of the information to criminally investigate or prosecute any alcohol or drug abuse patient.[facility]onIn the event this information is protected by the Federal Confidentiality of Alcohol and Drug Abuse Patient Records regulations: The Federal rules restrict any use of the information to criminally investigate or prosecute any alcohol or drug abuse patient.[facility]onIn the event this information is protected by the Federal Confidentiality of Alcohol and Drug Abuse Patient Records regulations: The Federal rules restrict any use of the information to criminally investigate or prosecute any alcohol or drug abuse patient.[facility] Reason for Visit (unrecogniz ed section and content) ReasonCommentsMenstrual ProblemReasonCommentsVaginal BleedingReasonComments EndometriosisReasonCommentsInsurance AuthorizationOrilissaReasonCommentsPelvic PainSpecialtyDiagnoses / ProceduresReferred By ContactReferred To ContactOB/LEGAL DEPARTMENT MANAGER / GYNECOLOGY Diagnoses Painful menstrual periods Painful Periods Procedures OFFICE/OUTPATIENT ESTABLISHED SF MDM 10-19 MIN EST WHI PATIENT Jihan Downs, HISTORY CARD CLERK.FLORIST MANAGER [address] [place] [id number] Jihan Downs, HISTORY CARD CLERK.FLORIST MANAGER [address] [place] [id number] Referral IDStatusReasonStart DateExpiration DateVisits RequestedVisits [id number]/[id number] MRI SpecialtyDiagnoses / ProceduresReferred By ContactReferred To ContactMR IMAGING Diagnoses Pelvic and perineal pain Procedures MRI FEMALE PELVIS WO/W IVCON MRI PELVIS W/O & W/CONTRAST MATERIAL Charlene Rodriguez DO [address] [facility] [address] [place] [address] Mr Imaging [place] [address] Referral IDStatusReasonStart DateExpiration DateVisits RequestedVisits [id number] Auto-Generated Referral /[id number] DateCommentsRefill Uyncznx9601/02/2024eason CommentsMenorrhagiaCramping with bleedingReasonCommentsSurgery Cancelled SpecialtyDiagnoses / ProceduresReferred By ContactReferred To Contact Diagnoses Preeclampsia, severe, third trimester Procedures O14.13 - Preeclampsia, severe, third trimester Kathe Ryder, [address] [place] [address] [facility] [address] [place] [address] Referral IDStatusReasonStart DateExpiration DateVisits RequestedVisits [id number] Pressure CheckReasonCommentsDysmenorrhea ReasonCommentsWell Women VisitReasonCommentsShoulder PainReasonCommentsPainful IntercourseReasonCommentsAmenorrheaReasonCommentsRoutine VisitReason CommentsGestational DiabetesSpecialtyDiagnoses / ProceduresReferred By Contact Referred To ContactMaternal and Medicine Diagnoses Gestational diabetes mellitus (GDM) in second trimester, gestational diabetes method of control unspecified Nathan Pop, DO [address] [place] [address] [place] [address] Phone: tel: fax: Maternal- Medicine at [facility] [address] [place] [address] Phone: tel: fax: Referral IDStatusReasonStart DateExpiration DateVisits RequestedVisits [id number] Review Specialty Services Required /[id number] consult Scheduled Active and Recently Administ ered [...] every 2-3 minutes with cervical changes or [place] units (MVU) greater than 200 in a [...] BE BASED ON THE PRIMARY CLINICAL RECORDS. [employer] provides no warranty or guarantee of the accuracy or completeness of information in this document.
--- NOTE | 2025-11-07 10:08 | US_ITS ---
[place] [id number] Patient Name: JUHI HOPE MRN: [id number] date: 1995 Sex: F Assigned Patient Location: Current Patient Location: Accession/Order Number: [id number] Exam Date: 11/07/2025 10:09 Report Date: 11/07/2025 14:10 At the request of: MARBELLA HUNTER Procedure: US OB BPP w non-stress US OB BPP w non-stress 11/07/2025 10:39 AM SIGNS AND SYMPTOMS: ^ INDUCED HYPERTENSION O13.9 PROTOCOL: Transabdominal sonographic imaging of the gravid uterus COMPARISON: None FINDINGS: Estimated gestational age: 37 weeks 0 days. heart rate: 145 bpm Amniotic fluid index: 9.79 cm with the deepest vertical pocket measuring 3.4 cm. Biophysical profile: breathing movements: 2/2 Gross body movements: 2/2 tone: 2/2 Amniotic fluid volume: 2/2 US/US OB BPP w non-stress IMPRESSION: Biophysical profile score: 8/8 Impression dictated by: Will Faria M.D. 11/07/2025 2:10 PM Dictation Location: [place] [address] Electronically authenticated by: [id number] Y Date: 11/07/2025 14:10
--- OUTSIDE RECORDS SUMMARY | 2025-11-07 10:10 | XMS_ITS | Encounter Summary ---
Author Organization [facility] tem Address [id number] [address] [place] [address] Care Team Providers Care Director Of Campus Recreation Name Role Phone Cruz Rodríguez MD Primary Care Provider [phone] Encounter Details DateTypeDepartmentCare Team (Latest Contact Info)Kriekcippro74/07/2025Travel Social History Tobacco UseTypesPacks/DayYears UsedDateSmoking Tobacco: NeverSmokeless Tobacco: NeverAlcohol UseStandard Drinks/WeekCommentsNo0 (1 standard drink = 0.6 oz pure alcohol)AUDIT-CAnswerDate RecordedQ1: How often do you have a drink containing alcohol?Never09/10/2025Q2: How many drinks containing alcohol do you have on a typical day when you are drinking?Patient does not drink09/10/2025Q3: How often do you have six or more drinks on one occasion?Never09/10/2025hildcareAnswer Date RsexlcwzZwxuywadnHrohgca83/13/2019EmploymentAnswerDate RecordedEmployment Xqsyxnf2705/08/2019Hunger ScreeningAnswerDate RecordedWithin the past 12 months we worried whether our food would run out before we got money to buy more.Never True09/10/2025Within the past 12 months the food we bought just didn't last and we didn't have money to get more.Never True09/10/2025Purpose - LifeAnswerDate RecordedPurpose and direction in lykcCnhjuya77/11/2021Estimated Date of YityfdgoXgbixqjkGsi70/03/2026Based on last menstrual period of 02/21/2025 (Exact Date)Sex and Gender InformationValueDate RecordedSex Assigned at BirthNot on fileLegal PfaErocpq82/07/2019 2:55 PM ESTGender IdentityNot on fileSexual OrientationNot on filedocumented as of this encounter Plan of Treatment Not on file documented as of this encounter Visit Diagnoses Not on filedocumented in this encounter Care Teams Team MemberRelationshipSpecialtyStart DateEnd Date Cruz Rodríguez MD [address] [place] [address] PCP - GeneralFamily Medicine12/02/18documented as of this encounter
--- OUTSIDE RECORDS SUMMARY | 2025-11-07 10:11 | XMS_ITS | Clinical Summary ---
Author Organization [employer] tem Address [id number] [address] [place] [address] Care Team Providers Care Custodian Name Role Phone Cruz Rodríguez MD Primary Care Provider [phone] Allergies No known active allergies Medications MedicationSigDispense [...] units subQ at bedtime. 15 mL 5Active azithromycin (ZITHROMAX) 250 mg tablet Take 1 tablet (250 mg total) by mouth in the morning. Take 2 tablets the first day, then 1 tablet daily for 4 days.Active insulin glargine-yfgn 100 unit/mL (3 mL) insulin pen Indications:Essential hypertension affecting in third trimesterPrime with 2 units and give 5 units every morning and 23 units subQ at bedtime. 15 mL 5112/20/2024Discontinued Active Problems ProblemNoted DateDiagnosed DateEssential hypertension affecting in third zlxuchwvb40/10/2025Insulin controlled gestational diabetes mellitus (GDM) in third kttfqrils66/26/2025Estimated Date of DeliveryCommentsYes 11/28/2025ased on last menstrual period of 02/21/2025 (Exact Date) Encounters DateTypeDepartmentCare RsadDtqpcqaxnyv34/09/2025 3:08 PM EST - 11/03/2025 5:57 PM ESTHospital Encounter [facility] [address] [place] [address] Trista Leach, Insulin controlled gestational diabetes mellitus (GDM) in third trimester (Primary Dx) Discharge Disposition: Home11/03/2025 2:30 PM ESTOffice Visit [facility]aternal- Medicine at [facility] [address] [place] [address] Kayleigh Rizzo, PA-C Insulin controlled gestational diabetes mellitus (GDM) in third trimester (Primary Dx); Essential hypertension affecting in third jrjopdaxt76/07/2025Travel 10/28/20254405Etjmxf69/25/2025Telephone Maternal- Medicine at [facility] [address] [place] [address] Cha Harris RN 10/20/2025Orders Only Maternal- Medicine at [facility] [address] [place] [address] Kayleigh Rizzo, PA-Natividad Essential hypertension affecting in third cjstbuysl49/14/2025Orders Only Maternal- Medicine at [facility] [address] [place] [address] Zora Samuels, DIALLO Essential hypertension affecting in third trimester (Primary Dx); Insulin controlled gestational diabetes mellitus (GDM) in third trimester 10/08/2025Orders Only Maternal Medicine [place] [address] [facility] [address] [place] [address] Danae Ramirze, RN Insulin controlled gestational diabetes mellitus (GDM) in third trimester (Primary Dx); Essential hypertension affecting in third trimester; Encounter for follow-up ultrasound of anatomy; History of pre-eclampsia in prior , currently ; Hx of delivery, currently , second luyvivbgq27/11/2025 2:30 PM ESTTelemedicine Maternal- Medicine at [facility] [address] [facility] [place] [address] Kayleigh Rizzo, PA-C Insulin controlled gestational diabetes mellitus (GDM) in third trimester (Primary Dx); Essential hypertension affecting in third rvuohnhra45/11/2025Travel 10/05/2025Telephone Maternal- Medicine at [facility] [address] [place] [address] Anjana Davalos, DIALLO 10/04/20258121Nfvnjg81/03/2025Telephone Maternal- Medicine at [facility] [address] [facility] [place] [address] Cha Harris, DIALLO 09/28/2025Orders Only Maternal- Medicine at [facility] [address] [facility] [place] [address] Kayleigh Rizzo, PA-C Essential hypertension affecting in third whylbznhy76/27/2025Telephone Maternal- Medicine at [facility] [address] [facility] [place] [address] Verito Gudino LD 09/21/2025Remote Patient Monitoring [facility]- Medicine at [facility] [address] [facility] [place] [address] Kayleigh Rizzo, PA-C Insulin controlled gestational diabetes mellitus (GDM) in third trimester (Primary Dx); Essential hypertension affecting in third vwkssumax53/23/2025Orders Only Maternal- Medicine at [facility] [address] [place] [facility] [place] [address] Camila Arciniega, PROMOTIONS SPECIALIST-CNM Essential hypertension affecting in third kauxwqvso80/22/2025Telephone Maternal- Medicine at [facility] [address] [place] [address] Cha Harris, DIALLO 09/15/2025Orders Only Maternal- Medicine at [facility] [address] [place] [address] Kayleigh Rizzo, FORREST Essential hypertension affecting in third wmyuxcplz07/16/2025 11:00 AM EDTTelemedicine Maternal Medicine [place] [address] [facility] [address] [place] [address] Quynh Clements MD 28 weeks gestation of (Primary Dx); Insulin controlled gestational diabetes mellitus (GDM) in second trimester; Essential hypertension affecting in third xrzoysevv65/16/2025Orders Only Maternal- Medicine at [facility] [address] [place] [address] Zora Samuels RN Essential hypertension affecting in third trimester (Primary Dx); Insulin controlled gestational diabetes mellitus (GDM) in second trimester; Encounter for follow-up ultrasound of efducsy4309/10/20251154Uzfxjn67/10/2025 3:00 PM EDTOffice Visit Maternal- Medicine at [facility] [address] [place] [address] Jean Carlos Denise MD Diet controlled gestational diabetes mellitus (GDM) in second trimester (Primary Dx); Essential hypertension affecting in third evjxbnous63/08/2025Travel 09/01/2025Telephone Maternal- Medicine at [facility] [address] [place] [address] Cha Harris, DIALLO 08/24/2025 1:30 PM EDTSupport Visit Maternal- Medicine at [facility] [address] [place] [address] Teena Sarmiento RN Fischer, Kelli, RD Gestational diabetes mellitus (GDM) in second trimester, gestational diabetes method of control ymunnoqamxz18/28/7445Glhilp40/27/2974Lvouvh00/26/2025bstract Maternal- Medicine at [facility] [address] [place] [address] External, Scanning Provider 08/19/2025Orders Only Maternal- Medicine at [facility] [address] [place] [address] Ref Prov, Not In System 08/18/2025bstract Maternal- Medicine at [facility] [address] [place] [address] Quynh Clements MD 08/18/2025Orders Only Maternal- Medicine at [facility] [address] [place] [address] Khalida Garrett RN History of pre-eclampsia in [...] or more drinks on one occasion?Never09/10/2025hildcareAnswer Date AfwijkegSivotdqzsKewkgry11/13/2019EmploymentAnswerDate RecordedEmployment Sztjfhp6605/08/2019Hunger ScreeningAnswerDate RecordedWithin the past 12 months we worried whether our food would run out before we got money to buy more.Never True09/10/2025Within the past 12 months the food we bought just didn't last and we didn't have money to get more.Never True09/10/2025Purpose - LifeAnswerDate RecordedPurpose and direction in huvqKajgnql86/11/2021Estimated Date of VkzvwpzdQsowsyvoAti10/03/2026Based on last menstrual period of 02/21/2025 (Exact Date)Sex and Gender InformationValueDate RecordedSex Assigned at BirthNot on fileLegal OwiPqkxmq74/07/2019 2:55 PM ESTGender IdentityNot on fileSexual OrientationNot on file Last Filed Vital Signs Vital SignReadingTime TakenCommentsBlood Tovmllls249/6711/03/2025 4:45 PM EST Eylbu678911/03/2025 4:45 PM ZECJisxibnveej96.6 ??C (97.8 ??F)11/03/2025 3:26 PM ESTRespiratory Ptwq872301/04/2025 3:26 PM ESTOxygen Mkhtsrhmdv11%12/10/2018 11:10 AM ESTInhaled Oxygen Concentration--Gxckxf26 kg (172 lb)11/03/2025 3:26 PM EST Xrchec134.5 cm (5' 2 )11/03/2025 3:26 PM ESTBody Mass Index31.4611/03/2025 3:26 PM EST Plan of Treatment Health MaintenanceDue DateLast DoneCommentsDepression Cjfqrhvki33/08/2007dult BMI Follow Up Plan2013DTaP,Tdap and Td Vaccines (7 - Td or Tdap)2024 2014, 05/03/2000, 12/29/1997, Additional history existsInfluenza Vaccine RSV ( or age 60+ yrs) (1 - Risk 1-dose series)10/03/2025dult BMI Tsvfjflrw865Tobacco Screening Pap Smear Medical Devices Not on file Procedures Procedure NamePriorityDate/TimeAssociated DiagnosisCommentsCBC (NO DIFF)STAT 11/03/2025 3:54 PM EST URIC EHXLQUDE75/09/2025 3:54 PM EST SUTKONI7011/03/2025 3:54 PM EST COMPREHENSIVE METABOLIC SNPGRHLQQ01/09/2025 3:54 PM EST PROTEIN CREAT QQCBCZRHO05/09/2025 3:39 PM EST US MFM OB FOLLOW-UP, 1 LFUKNXwpbfrn92/03/2025 12:08 PM EST Essential hypertension affecting in third trimester Insulin controlled gestational diabetes mellitus (GDM) in third trimester US MFM OB FOLLOW-UP, 1 TUZAEVignpzl01/13/2025 8:55 AM EST Essential hypertension affecting in third trimester Insulin controlled gestational diabetes mellitus (GDM) in second trimester Encounter for follow-up ultrasound of anatomy US MFM COMPREHENSIVE ANATOMIC FFVYPVYjsrjou07/16/2025 10:56 AM EDT History of pre-eclampsia in prior , currently GLUCOSE TOLERANCE, 3 BXBGAAlkkisb36/20/2025 GLUCOSE TOLERANCE, CTOPKICQlqmvyw28/20/2025 GLUCOSE TOLERANCE, 1 NRGXNezoioh52/20/2025 SECOND HOUR GLUCOSE TOLERANCE 100 GM RQPMJszikzp13/20/2025 ULTRASOUND KCBZCJXmijvxm00/17/2025 3:39 PM EDTGLU 1H POST 50G LOADRoutine 08/12/2025 from Last 3 Months Results * LDH (11/03/2025 3:54 PM EST)ComponentValueRef RangeTest MethodAnalysis Time Performed AtPathologist JocotciulUSV368946 - 235 U/L101/04/2025 4:52 PM EST [facility] LABORATORYSpecimen (Source)Anatomical Location / LateralityCollection Method / VolumeCollection TimeReceived TimeBloodVenous blood / UnknownVenipuncture / Puygigc5811/03/2025 3:54 PM EST11/03/2025 4:18 PM EST Narrative Authorizing ProviderResult TypeResult StatusAllpia Hernandez PROMOTIONS SPECIALIST-CNMLAB BLOOD ORDERABLESFinal ResultPerforming OrganizationAddressCity/State/ZIP CodePhone Number [facility] [address] [place] [address], * (ABNORMAL) CBC without diff (11/03/2025 3:54 PM EST)ComponentValueRef Range Test MethodAnalysis TimePerformed AtPathologist GokqechogIUE26.3(H)4 - 11 10^9/L101/04/2025 4:30 PM [facility] LABORATORYRBC Count4.07 3.8 - 5.2 10^1211/03/2025 4:30 PM [facility] Sdynmvxess83.311.7 - 15.5 g/dL11/03/2025 4:30 PM [facility] OALGOOEAERKrfemcvqwt66.935 - 47 %11/03/2025 4:30 PM [facility] CPZPQOSCRJTQM5714 - 100 fL11/03/2025 4:30 PM [facility] XBQQDQREJKLVK59.327 - 34 pg11/03/2025 4:30 PM [facility] RQQTZSIMLUWQDZ25.432 - 36 g/dL11/03/2025 4:30 PM [facility] GSRZDJGCXKFZZ78.611.5 - 15 %11/03/2025 4:30 PM [facility] LABORATORYPlatelet Ykkyn421067 - 450 10^9/L101/04/2025 4:30 PM [facility] LABORATORYMPV8.17 - 12 fL11/03/2025 4:30 PM [facility] LABORATORYSpecimen (Source)Anatomical Location / Laterality Collection Method / VolumeCollection TimeReceived TimeBloodVenous blood / UnknownVenipuncture / Cyfgtcg5811/03/2025 3:54 PM EST11/03/2025 4:18 PM EST Narrative Authorizing ProviderResult TypeResult StatusDeirdre Hernandez PROMOTIONS SPECIALIST-CNMLAB BLOOD ORDERABLESFinal ResultPerforming OrganizationAddressCity/State/ZIP CodePhone Number [facility] [address] [place] [address], * Uric acid (11/03/2025 3:54 PM EST)ComponentValueRef RangeTest MethodAnalysis TimePerformed AtPathologist SignatureURIC ACID6.02.6 - 7.2 mg/dL11/03/2025 4:52 PM [facility] LABORATORYSpecimen (Source)Anatomical Location / LateralityCollection Method / VolumeCollection TimeReceived Time BloodVenous blood / UnknownVenipuncture / Ihkcqco8911/03/2025 3:54 PM EST 11/03/2025 4:18 PM EST Narrative Authorizing ProviderResult TypeResult StatusTurning Point Mature Adult Care Unitpia Hernandez PROMOTIONS SPECIALIST-CNMLAB BLOOD ORDERABLESFinal ResultPerforming OrganizationAddressCity/State/ZIP CodePhone Number [facility] [address] [place] [address], * (ABNORMAL) Comprehensive metabolic panel (11/03/2025 3:54 PM EST)Component ValueRef RangeTest MethodAnalysis TimePerformed AtPathologist SignatureSODIUM 868130 - 146 mmol/L101/04/2025 4:52 PM [facility] POTASSIUM3.73.5 - 5.0 mmol/L101/04/2025 4:52 PM [facility] GNFDFVFMHADOLNUYIL71024 - 109 mmol/L101/04/2025 4:52 PM [facility] LABORATORYCARBON SNIQZUU26(L)22 - 32 mmol/L101/04/2025 4:52 PM [facility] LABORATORYANION AWC013 - 15 mmol/L101/04/2025 4:52 PM [facility] LABORATORYBLOOD UREA RUHXTOTG352 - 23 mg/dL11/03/2025 4:52 PM [facility] LABORATORYCREATININE0.580.40 - 1.00 mg/dL 11/03/2025 4:52 PM [facility] LABORATORYComment:METHOD TRACEABLE TO IDIN EYZQYGNNCRNMXCX118(H)65 - 99 mg/dL11/03/2025 4:52 PM [facility] LABORATORYCALCIUM8.68.5 - 10.5 mg/dL11/03/2025 4:52 PM [facility] LABORATORYTOTAL PROTEIN6.66.0 - 8.0 g/dL 11/03/2025 4:52 PM [facility] LABORATORYALBUMIN3.73.2 - 5.3 g/dL11/03/2025 4:52 PM [facility] LABORATORYALKALINE AQZMQDGQYBX329(H)39 - 130 U/L101/04/2025 4:52 PM [facility] NOAMUTQUDVHDJ00<=41 U/L101/04/2025 4:52 PM [facility] ORIAWYKFTCTRT29<=31 U/L101/04/2025 4:52 PM [facility] LABORATORYBILIRUBIN,TOTAL1.00.3 - 1.2 mg/dL11/03/2025 4:52 PM [facility] LABOR[facility]ORYEGFR Non-Race Dependent>90>=60 ml/min/1.73sq.m 11/03/2025 4:52 PM [facility] LABORATORYComment: Reported eGFR is based on the CKD-EPI 2020 equation that does not use a race coefficient. Specimen (Source)Anatomical Location / LateralityCollection Method / Volume Collection TimeReceived TimeBloodVenous blood / UnknownVenipuncture / Unknown 11/03/2025 3:54 PM EST11/03/2025 4:18 PM EST Narrative Authorizing ProviderResult TypeResult StatusAllison Hernandez PROMOTIONS SPECIALIST-CNMLAB BLOOD ORDERABLESFinal ResultPerforming OrganizationAddressCity/State/ZIP CodePhone Number [facility] [address] [place] [address], * Protein creat ratio (11/03/2025 3:39 PM EST)ComponentValueRef RangeTest Method Analysis TimePerformed AtPathologist SignatureURINE PROTEIN, RANDOM (MG/L)110 <120 mg/L101/04/2025 4:36 PM [facility] LABORATORYURINE CREATININE,RDM90.72mg/dL11/03/2025 4:36 PM [facility] LABORATORYU/PRO/DERMATOLOGY PHYSICIAN ASSISTANT RATIO CALC0.12<=0. 4:36 PM [facility] LABORATORYSpecimen (Source)Anatomical Location / LateralityCollection Method / VolumeCollection TimeReceived TimeUrineUrine specimen collection, clean catch / UnknownCollection / Rytoako5611/03/2025 3:39 PM EST11/03/2025 4:01 PM EST Narrative [facility] - 11/03/2025 4:36 PM EST Nephrotic Syndrome is associated with ratios >3.5 Authorizing ProviderResult TypeResult StatusAllison Mary PROMOTIONS SPECIALIST-CNMURINE ORDERABLESFinal ResultPerforming OrganizationAddressCity/State/ZIP CodePhone Number [facility] [address] [place] [address], * [facility] OB FOLLOW-UP, 1 FETUS (10/28/2025 12:08 PM EST) Only the most recent of3 resultswithin the time period is included. Anatomical RegionLateralityModalityOB-GYNUltrasoundSpecimen (Source)Anatomical Location / LateralityCollection Method / VolumeCollection TimeReceived Time 10/28/2025 11:14 AM EST Narrative 10/28/2025 4:49 PM EST NAME: ??JAYY REYNAGA : 1995 SEX: F Accession Number: [id number] ORDERING PHYSICIAN: JEAN CARLOS DENISE REFERRING PHYSICIAN: JONY MEJÍA Coding Procedures ? 06410: Ultrasound, uterus, real time with image documentation, follow up,transabdominal ? approach per fetus Indication Screening for follow-up survey, Gestational diabetes, Chronic hypertension affecting , History of prior with pre-eclampsia , History of prior with delivery , Previous surgery to cervix -(D&C). History OB History ? 2. Para 1 ? G2E2L8M2 Current Cell free DNA ?Low Risk analysis [...] (oz) ? 5 oz EFW by: ?Hadlock (BOI-LR-EY-FL) Extended Tibia ??57.2 mm 33w 4d 21% Gerda Director Of Early Childhood Education ? 1.4 mm Head / Face / Neck Cephalic index 0.82 ? 64% Nicolaides Nasal bone: ?documented previously Extremities / Bony Struc FL / BPD ? 0.70 FL / HC ?0.20 FL / AC ?0.20 Other Structures FHR ?129 bpm Anatomy The following structures appear normal: Head/Neck: Cranium. Lateral ventricles. Cavum septi pellucidi. Parenchyma. Heart/Thorax: 4-chamber view. RVOT view. LVOT view. 3-vessel view. 4-ajfrkw-kbkxzvd view. Situs. Aortic arch view. ? Interventricular [...] is a normal variant. Recommendations Please see [facility] recommendations from prior clinical and/or ultrasound report [...] primary OB provider unless otherwise specified by [facility]. Results forwarded to ordering provider so they can follow up with the patient as necessary. Procedure Note Trinity Parson MD - 10/28/2025 NAME: JAYY REYNAGA : 1995 SEX: F Accession Number: [id number] ORDERING PHYSICIAN: JEAN CARLOS DENISE REFERRING PHYSICIAN: JONY MEJÍA Coding Procedures 41259: Ultrasound, uterus, real time with image documentation, follow up, transabdominal approach per fetus Indication Screening for follow-up survey, Gestational diabetes, Chronic hypertension affecting , History of prior with pre-eclampsia , History of prior with delivery ,Previous surgery to cervix -(D&C). History OB History 2. Para 1 A5E2S5N0 Current Cell free DNA Low Risk analysis [...] EFW (oz) 5 oz EFW by: Hadlock (JVW-BC-JZ-FL) Extended Tibia 57.2 mm 33w 4d 21% Gerda Director Of Early Childhood Education 1.4 mm Head / Face / Neck Cephalic index 0.82 64% Nicolaides Nasal bone: documented previously Extremities / Bony Struc FL / BPD 0.70 FL / HC 0.20 FL / AC 0.20 Other Structures FHR 129 bpm Anatomy The following structures appear normal: Head/Neck: Cranium. Lateral ventricles. Cavum septi pellucidi.Parenchyma. Heart/Thorax: 4-chamber view. RVOT view. LVOT view. 3-vessel view. 6-zfmpoa-fxhsjfv view. Situs. Aortic arch view. Interventricular septum. [...] is a normal variant. Recommendations Please see [facility] recommendations from prior clinical and/or ultrasoundreport documentation. [...] necessary. Authorizing ProviderResult TypeResult StatusJean Carlos Denise MDIMGERALD CHAMPION [facility] ORDERABLES Final Result * 2nd hr Glucose Tolerance 100 gm load (08/15/2025)ComponentValueRef RangeTest MethodAnalysis TimePerformed AtPathologist SignatureGlucose Tolerance Test 2 Jtiw017CDCGGLVM TRANSCRIBED RESULTSSpecimen (Source)Anatomical Location / LateralityCollection Method / VolumeCollection TimeReceived TimeBloodVenous blood / Unknown Narrative Authorizing ProviderResult TypeResult StatusNot In System Ref FireScope BLOOD ORDERABLESFinal ResultPerforming OrganizationAddressCity/State/ZIP CodePhone Number MANUALLY TRANSCRIBED RESULTS * Glucose tolerance, 1 hour (08/15/2025)ComponentValueRef RangeTest Method Analysis TimePerformed AtPathologist SignatureGlucose Tolerance Test 1 Ydff353 MANUALLY TRANSCRIBED RESULTSSpecimen (Source)Anatomical Location / Laterality Collection Method / VolumeCollection TimeReceived TimeBloodVenous blood / Unknown Narrative Authorizing ProviderResult TypeResult StatusNot In System Ref OpbeatLAB BLOOD ORDERABLESFinal ResultPerforming OrganizationAddressCity/State/ZIP CodePhone Number MANUALLY TRANSCRIBED RESULTS * Glucose tolerance, 3 hours (08/15/2025)ComponentValueRef RangeTest Method Analysis TimePerformed AtPathologist SignatureGlucose Tolerance Test 3 Muga082 MANUALLY TRANSCRIBED RESULTSSpecimen (Source)Anatomical Location / Laterality Collection Method / VolumeCollection TimeReceived TimeBloodVenous blood / Unknown Narrative Authorizing ProviderResult TypeResult StatusNot In System Ref ProvLAB BLOOD ORDERABLESFinal ResultPerforming OrganizationAddressCity/State/ZIP CodePhone Number MANUALLY TRANSCRIBED RESULTS * Glucose, tolerance fasting (08/15/2025)ComponentValueRef RangeTest Method Analysis TimePerformed AtPathologist SignatureGlucose Tolerance Test Erkoawp36 MANUALLY TRANSCRIBED RESULTSSpecimen (Source)Anatomical Location / Laterality [...] TimePerformed AtPathologist SignatureGlucose, 1 hr PP 50GM wwhc902 MANUALLY TRANSCRIBED RESULTSSpecimen (Source)Anatomical Location / Laterality Collection Method / VolumeCollection TimeReceived TimeBloodVenous blood / Unknown Narrative Authorizing ProviderResult TypeResult StatusNot In System Ref ProvLAB BLOOD ORDERABLESFinal ResultPerforming OrganizationAddressCity/State/ZIP CodePhone Number MANUALLY TRANSCRIBED RESULTS from Last 3 Months Insurance MemberSubscriberPlan / Payer (Effective 2024-Present)Name:Driss Gama Relation to Subscriber:SelfName:Driss Gama Payer ID:Not on file Type:Not on file Address: [place] [id number] Care Teams Team MemberRelationshipSpecialtyStart DateEnd Date Cruz Rodríguez MD [address] [place] [address] PCP - [facility]12/02/18
--- OUTSIDE RECORDS SUMMARY | 2025-11-07 10:11 | XMS_ITS | Encounter Summary ---
Author Organization [employer] tem Address [id number] [address] [place] [address] Care Team Providers Care Custom Shoe Designer And Maker Name Role Phone Cruz Rodríguez MD Primary Care Provider [phone] Encounter Details DateTypeDepartmentCare Team (Latest Contact Info)Kpmeahaitjh27/03/2025Travel Social History Tobacco UseTypesPacks/DayYears UsedDateSmoking Tobacco: NeverSmokeless Tobacco: NeverAlcohol UseStandard Drinks/WeekCommentsNo0 (1 standard drink = 0.6 oz pure alcohol)AUDIT-CAnswerDate RecordedQ1: How often do you have a drink containing alcohol?Never09/10/2025Q2: How many drinks containing alcohol do you have on a typical day when you are drinking?Patient does not drink09/10/2025Q3: How often do you have six or more drinks on one occasion?Never09/10/2025hildcareAnswer Date PupjjgvtOywapjvjkUasovty08/13/2019EmploymentAnswerDate RecordedEmployment Yhgshjy6905/08/2019Hunger ScreeningAnswerDate RecordedWithin the past 12 months we worried whether our food would run out before we got money to buy more.Never True09/10/2025Within the past 12 months the food we bought just didn't last and we didn't have money to get more.Never True09/10/2025Purpose - LifeAnswerDate RecordedPurpose and direction in lhmlKqljrpo24/11/2021Estimated Date of OyncphajEgziljejMlr53/03/2026Based on last menstrual period of 02/21/2025 (Exact Date)Sex and Gender InformationValueDate RecordedSex Assigned at BirthNot on fileLegal YmcEdnjhv55/07/2019 2:55 PM ESTGender IdentityNot on fileSexual OrientationNot on filedocumented as of this encounter Plan of Treatment Not on file documented as of this encounter Visit Diagnoses Not on filedocumented in this encounter Care Teams Team MemberRelationshipSpecialtyStart DateEnd Date Cruz Rodríguez MD [address] [place] [address] PCP - GeneralFamily Medicine12/02/18documented as of this encounter
[2025-11-07 10:38] VITALS: BP 131/82; PULSE 105
[2025-11-07 10:43] VITALS: BP 136/76; PULSE 99
[2025-11-07 10:48] VITALS: BP 128/70; PULSE 102
== END 2025-11-07 11:10 | disposition home or self-care (01) ==
LOC: US 10:02 → FBC 10:14
PROVIDERS: Family Provider Family Medicine; PCP Family Medicine; Visit Provider Nurse Practitioner Family
DX: O13.3 Gestational [pregnancy-induced] hypertension without significant proteinuria, third trimester (principal); O24.419 Gestational diabetes mellitus in pregnancy, unspecified control; Z3A.37 37 weeks gestation of pregnancy
CPT/HCPCS: 76818

== ENCOUNTER 2025-11-09 04:55 | Inpatient (IN) | payer OTHER, SELFPAY ==
--- OUTSIDE RECORDS SUMMARY | 2025-10-29 09:00 | XMS_ITS | Encounter Summary ---
Author Organization [facility] Address [address] [place] [address] Care Team Providers Care Pest Control Chemical Technician Name Role Phone CharlotteEliceo medina Primary Care Provider [phone] Charlottecarol Eliceo Hurtado DO Unavailable [phone] Reason for Visit * ReasonCommentsRoutine Visit Encounter Details DateTypeDepartmentCare Team (Latest Contact Info)Tuovxxoacuh88/04/2025 9:00 AM ESTRoutine [facility] [address] [facility] [place] [address] Nathan Pop DO [address] [place], [place] [id number] Third trimester ([facility]); 35 weeks gestation of ([facility]); H/O pre-eclampsia in prior , currently ([facility]); H/O premature delivery Social History Tobacco UseTypesPacks/DayYears UsedDateSmoking Tobacco: NeverSmokeless Tobacco: NeverAlcohol UseStandard Drinks/WeekCommentsNever0 (1 standard drink = 0.6 oz pure alcohol)caffeine: 1-2 cups per day, coffee and tooU2964 Health Literacy AnswerDate RecordedHow often do you [...] relatives?Once a week12/29/2024How often do you attend adventist or religion services?Patient /03/2025Do you belong to any clubs or organizations such as adventist groups, unions, [employer] or athletic leodan ups, or school groups?No12/29/2024How often do you attend meetings of the clubs or organizations you belong to?Patient fcawojcy59/03/2025re you , , , , never , [...] Questionnaire-2 Score0 07/30/2025[facility] [place] of Occupational Health - Occupational Stress QuestionnaireAnswerDate RecordedDo you feel stress - tense, restless, nervous, or anxious, or unable to sleep at night because yourmind is troubled all the time - these days?Only a dolkqo5112/29/2024Exercise Vital SignAnswerDate Recorded On average, how many [...] steady place to sleep or slept in [place] (including now)?No09/19/2023Housing Stability Vital SignAnswerDate RecordedIn the [...] the highest degree you have received?High school drxzmwoh11/29/2023 Estimated Date of HasmneuyPpulgqooOio62/03/2026ased on last menstrual period of 02/21/2025Sex and Gender InformationValueDate RecordedSex Assigned at BirthNot on fileLegal HmvUsuayw70/15/2023 7:18 PM EDTGender IdentityNot on file Sexual OrientationNot on 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 Not on fileNot on fileNot on filedocumented as of this encounter Last Filed Vital Signs Vital SignReadingTime TakenCommentsBlood Jaelifpc656/8212 9:33 AM EST Pulse--Temperature--Respiratory Rate--Oxygen Saturation--Inhaled Oxygen Concentration--Ufzzit26.1 kg (170 lb)10/29/2025 9:33 AM ESTHeight--Body Mass [...] 02/19/2024 Diarrhea 03/24/2025 33 weeks gestation of ([facility]) 10/14/2025 Third trimester ([facility]) 10/14/2025 H/O pre-eclampsia in prior , currently ([facility]) 10/29/2025 H/O premature delivery 10/29/2025 Resolved Ambulatory Problems Diagnosis Date Noted No Resolved Ambulatory Problems Past Medical History: Diagnosis Date Amenorrhea d/t oral contraceptive pills John San infection GDM (gestational diabetes mellitus) ([facility]) Headache History of menstrual cramps ([facility]) Varicella zoster Visual impairment HISTORY PAST MEDICAL HISTORY SOCIAL HISTORY Past Medical History: Diagnosis Date Amenorrhea d/t oral contraceptive pills Endometriosis John San infection GDM (gestational diabetes mellitus) ([facility]) Headache History of menstrual cramps severe Hypertension ([facility]) x1 Varicella zoster unsure Visual [...] History: Procedure Laterality Date APPENDECTOMY 05/2016 at [facility] [place] [facility] 12/2022 retained placenta DISTAL [...] nursing note reviewed. Exam conducted with a elementary reading specialist present. Vitals: Estimated body mass index is 31.09 kg/m?? as calculated from the following: Height as of 07/30/25: 5' 2 . Weight as of this encounter: 170 lb. BP: 128/82 Patient's last menstrual period was 02/21/2025. Assessment/Plan ICD-10-CM 1. Third trimester ([facility]) Z34.93 POCT urinalysis dipstick manually resulted CULTURE, GROUP B STREP WITH SUSCEPTIBLITY CULTURE, GROUP B STREP WITH SUSCEPTIBLITY 2. 35 weeks gestation of ([facility]) Z3A.35 3. H/O pre-eclampsia in prior , currently ([facility]) O09.299 4. H/O premature delivery Z87.51 [...] for routine OB appointment Documented by Radha Ramhan MA/Candis Yanes LPN on behalf of: Nathan Pop DO documented in this encounter Plan of Treatment NameTypePriorityAssociated DiagnosesOrder ScheduleCULTURE, GROUP B STREP WITH SUSCEPTIBLITYLabRoutine Third trimester ([facility]) Expected: 10/29/2025, Expires: 10/29/2026documented as of this encounter Procedures Procedure NamePriorityDate/TimeAssociated DiagnosisCommentsPOCT URINALYSIS IDYAHXKYWzdcqfn73/04/2025 9:38 AM EST Third trimester ([facility]) documented in this encounter Results * (ABNORMAL) POCT urinalysis dipstick manually resulted (10/29/2025 9:38 AM EST) ComponentValueRef RangeTest MethodAnalysis TimePerformed AtPathologist SignatureColor, UAYellowClarity, UAClearGlucose, UANegativeNegative - 2000(110) ++++ mg/dLBilirubin, UANegativeNegative - 4(70) +++ mg/dLKetones, UA NegativeNegative - 160(16) ++++ mg/dLSpec Grav, UA1.0101 - 1.03Blood, UA NegativeNegative - 50 Teodoro/mcLpH, UA6.05 - 9Protein, UANegativeNegative - 2000(20) ++++ mg/dLUrobilinogen, UA1.00.2 - 12 mg/dLLeukocytes, UA1+Negative - 500+++ Robinson/mcLNitrite, UANegativeNegative - PositiveSpecimen (Source) Anatomical Location / LateralityCollection Method / VolumeCollection Time Received YoofAwyzc15/04/2025 9:38 AM EST Narrative Authorizing ProviderResult TypeResult StatusCorey Kiesha DOPOINT OF CARE TEST ENTER/EDIT ORDERABLESFinal Result documented in this encounter Visit Diagnoses Diagnosis Third trimester ([facility]) state, incidental 35 weeks gestation of ([facility]) H/O pre-eclampsia in prior , currently ([facility]) H/O premature delivery documented in this encounter Care Teams Team MemberRelationshipSpecialtyStart DateEnd Date Eliceo Beltran DO [address] [place] [address] PCP - GeneralFamily Medicine02/14/24 Eliceo Beltran DO [address] [place] [address] PCP - Medical [place] [employer]07/27/2412documented as of this encounter
--- OUTSIDE RECORDS SUMMARY | 2025-11-03 14:30 | XMS_ITS | Encounter Summary ---
Author Organization [facility] [employer] [facility] tem Address [facility] [place]-[id number] [address] [place] [address] Care Team Providers Care Quality Assurance Representative Name Role Phone Cruz Rodríguez MD Primary Care Provider [phone] Reason for Visit * ReasonCommentsGestational DiabetesHypertension Encounter Details DateTypeDepartmentCare Team (Latest Contact Info)Nuhuveyxmzi41/09/2025 2:30 PM ESTOffice Visit Maternal- Medicine at [facility] [address] [place] [phone] Kayleigh Rizzo PALuis Angel [address] [address] Insulin controlled gestational diabetes mellitus (GDM) in third trimester (Primary Dx); Essential hypertension affecting in third trimester Social History Tobacco UseTypesPacks/DayYears UsedDateSmoking Tobacco: NeverSmokeless Tobacco: Never Tobacco Cessation:Counseling Given: Not Answered Alcohol UseStandard Drinks/WeekCommentsNo0 (1 standard drink = 0.6 oz pure alcohol)AUDIT-CAnswerDate RecordedQ1: How often do you have a drink containing alcohol?Never09/10/2025Q2: How many drinks containing alcohol do you have on a typical day when you are drinking?Patient does not drink09/10/2025Q3: How often do you have six or more drinks on one occasion?Never10/16/2025ChildcareAnswer Date KbseqcuhEcjklmecwMoozmzi17/13/2019EmploymentAnswerDate RecordedEmployment Npyezky9405/08/2019Hunger ScreeningAnswerDate RecordedWithin the past 12 months we worried whether our food would run out before we got money to buy more.Never True09/10/2025Within the past 12 months the food we bought just didn't last and we didn't have money to get more.Never True09/10/2025Purpose - LifeAnswerDate RecordedPurpose and direction in ezpsFnvzbiu93/11/2021Estimated Date of HwnojogpJuhcqbltZji47/03/2026Based on last menstrual period of 02/21/2025 (Exact Date)Sex and Gender InformationValueDate RecordedSex Assigned at BirthNot on fileLegal QqnPncvmw59/07/2019 2:55 PM ESTGender IdentityNot on fileSexual OrientationNot on filedocumented as of this encounter Last Filed Vital Signs Vital SignReadingTime TakenCommentsBlood Ztlrzzvz179/8511/03/2025 2:41 PM EST Msyqk25076/09/2025 2:41 PM ESTTemperature--Respiratory Rate--Oxygen Saturation-- Inhaled Oxygen Concentration--Wpgftp42.1 kg (172 lb 3.2 oz)11/03/2025 2:41 PM LCSBnvpvr034.5 cm (5' 2.01 )11/03/2025 2:41 PM ESTBody Mass Index31.4911/03/2025 2:41 PM ESTdocumented in this encounter Progress Notes * Kayleigh Rizzo PA-C - 11/03/2025 2:30 PM EST Maternal- Medicine Consultation VIDEO Patient is present at work, provider present at [facility] HISTORY OF PRESENT ILLNESS: Driss Gama is a 30 y.o. female at 36w3d due on Estimated Date of Delivery: 11/28/25 complicated by cHTN, GDMA2, h/o preeclampsia. Today patient c/o worsening headache - states she has gotten headaches through but today it is more throbbing. Denies visual symptoms, increase edema, SOB, chest pain Patient states she was admitted to hospital over night about 3 weeks ago - due to elevated blood pressure. Was given steroid injections for lung maturity. Unsure if labwork met criteria for preeclampsia or not, but was told delivery will be at 37 weeks. Denies severe range BP. States BP's at home have been 130s-140/80s BG log review: F: all under goal, 95 Patient is chekcing pre prandial levels, they range 80s-105 Taking Lantus 5u in AM, 23u in PM Taking Labetalol 200mg TID Denies any values <60 day or night [...] every morning and 25 units subQ at bedtime., Disp: 15 mL, [...] of hypoglycemia, and examples of treatment ofhypoglycemia ( rule). Discussed her current diet and her [...] after 28 weeks - Last growth done 10/28: EFW measures at the 67%, AC measures at the 88%. Amniotic fluid MVP measures 4.8 cm - Recommend the following for testing, which can be done with primary OB: - NST twice weekly and LEONEL once weekly at 32 weeks - Delivery recommendations : - Delivery timing dependent on BP control - if patient without severe features, would recommend delivery at 37 weeks given increasing Bps in setting of cHTN on medication. If patient has any severe features, recommend delivery at time of diagnosis as patient is now 36 weeks - Evening prior to delivery, taking 1/2 of long acting PM dose. On morning of delivery, do not needto take long acting AM dose - Obtain a 2-hour GTT 6-8 weeks . Also recommend yearly evaluation of blood glucose as patient is at an increased risk of developing diabetes later on - reviewed Patient taken to OB triage given elevated blood pressures and worsening headache. Labor symptoms, preeclampsia sign/symptoms, and movement precautions reviewed. No further follow up with Maternal- Medicine. I asked her to keep sending values to us weekly by e-mail to: or by fax to: [phone] Kayleigh Rizzo PA-C Maternal- Medicine Office phone: [phone] Kayleigh Rizzo PA-C 11/03/25 1553 * Kameron Burr - 11/03/2025 2:30 PM EST Headache/epigastric pain/blurry vision/swelling? Occasional headaches Cramping/contractions? Occasional cramps. Started last week Spotting or vaginal bleeding? no Loss or gush of fluid like your water may have broken? no Recent ER visits or hospitalizations? Stayed overnight a few weeks ago due to high blood pressure Any concerns that you would like me to mention to the provider today? no documented in this encounter Plan of Treatment Not on file documented as of this encounter Visit Diagnoses Diagnosis Insulin controlled gestational diabetes mellitus (GDM) in third trimester- Primary Essential hypertension affecting in third trimester documented in this encounter Care Teams Team MemberRelationshipSpecialtyStart DateEnd Date Cruz Rodríguez MD [address] [place] [address] PCP - GeneralFamily Medicine12/02/18documented as of this encounter
--- OUTSIDE RECORDS SUMMARY | 2025-11-03 15:08 | XMS_ITS | Encounter Summary ---
Author Organization [facility] tem Address [id number] [address] [place] [address] Care Team Providers Care Rn Oncology Name Role Phone Cruz Rodríguez MD Primary Care Provider [phone] Reason for Visit * ReasonCommentsHypertension Encounter Details DateTypeDepartmentCare Team (Latest Contact Info)Gantpbkfjww03/09/2025 3:08 PM EST - 11/03/2025 5:57 PM ESTHospital Encounter [facility] [address] [place] [address] Trista Leach, [address] [place] [place] [address] Insulin controlled gestational diabetes mellitus (GDM) in third trimester (Primary Dx) Discharge Disposition: Home Social History Tobacco UseTypesPacks/DayYears UsedDateSmoking Tobacco: NeverSmokeless Tobacco: NeverAlcohol UseStandard Drinks/WeekCommentsNo0 (1 standard drink = 0.6 oz pure alcohol)AUDIT-CAnswerDate RecordedQ1: How often do you have a drink containing alcohol?Never09/10/2025Q2: How many drinks containing alcohol do you have on a typical day when you are drinking?Patient does not drink09/10/2025Q3: How often do you have six or more drinks on one occasion?Never09/10/2025hildcareAnswer Date WqpcrcesKpztqmndeKteunqn56/13/2019EmploymentAnswerDate RecordedEmployment Gagkmtg5305/08/2019Hunger ScreeningAnswerDate RecordedWithin the past 12 months we worried whether our food would run out before we got money to buy more.Never True09/10/2025Within the past 12 months the food we bought just didn't last and we didn't have money to get more.Never True09/10/2025Purpose - LifeAnswerDate RecordedPurpose and direction in jlssPhtolvi93/11/2021Estimated Date of ItqstcutYoomxewyYzo06/03/2026Based on last menstrual period of 02/21/2025 (Exact Date)Sex and Gender InformationValueDate RecordedSex Assigned at BirthNot on fileLegal EuxSuiiiv91/07/2019 2:55 PM ESTGender IdentityNot on fileSexual OrientationNot on filedocumented as of this encounter Last Filed Vital Signs Vital SignReadingTime TakenCommentsBlood Ywgwdbyv073/6711/03/2025 4:45 PM EST Nhraj950611/03/2025 4:45 PM BKOWmwqzvgggdz70.6 ??C (97.8 ??F)11/03/2025 3:26 PM ESTRespiratory Piyf486901/04/2025 3:26 PM ESTOxygen Saturation--Inhaled Oxygen Concentration--Lvlzxx86 kg (172 lb)11/03/2025 3:26 PM RDLLdoujz259.5 cm (5' 2 ) 11/03/2025 3:26 PM ESTBody Mass Index31.4611/03/2025 3:26 PM ESTdocumented in this encounter Discharge Instructions * Discharge Instructions* Jackelyn Adler RN - 11/03/2025 5:04 PM EST Discharge Instructions for discharge to home, undelivered, provided to Driss Gama Diet: regular Fluids: drink 6-8 glasses of water a day, avoid alcohol, and avoid caffeine Elimination: empty bladder every 2-3 hours Activity: resume previous, unlimited activity Kick Count: Instruction/Reinforcement: discussed with patient Call Provider: abdominal pain/cramping, burning/pain with urination, decreased or absent movement, dizziness, epigastric distress/pain, gushing of fluid from the vagina, leaking of fluid from the vagina, low,dull backache, severe headache, swelling of the face, hands, or feet, vaginal bleeding, visual disturbances, spots before eyes, or blurry vision, and vomiting/diarrhea 2-3 days in a row Signs of Labor: bloody show, increase in strength or frequency of contractions, leaking amniotic fluid , and regular contractions Next Appointment: keep next scheduled appointment Consults: N/A Prescriptions Given: N/A Discharge: home Discharged by: 11/03/2025 5:04 PM documented in this encounter Medications at Time of Discharge MedicationSigDispense QuantityRefillsLast FilledStart DateEnd Date azithromycin (ZITHROMAX) 250 mg tablet Take 1 tablet (250 mg total) by mouth in the morning. Take 2 tablets the first day, then 1 tablet daily for 4 days. insulin glargine-yfgn 100 unit/mL (3 mL) insulin pen Indications:Essential hypertension affecting in third trimesterPrime with 2 units and give 5 units every morning and 25 units subQ at bedtime. 15 mL labetaloL (NORMODYNE) 100 mg tablet Take 2 tablets (200 mg total) by mouth 3 (three) times a day. pen needle, diabetic (BD ULTRA-FINE REGGIE PEN NEEDLE) 32 gauge x 5/32 needle Indications:Diet controlled gestational diabetes mellitus (GDM) in second trimester,Essential hypertension affecting in third trimesterUse pen needles to give insulin. 100 each PNV no.95-ferrous fumarate-FA () 28 mg iron- 800 mcg tablet Take 1 tablet by mouth in the morning.documented as of this encounter H&P Notes * NILES Abarca - 11/03/2025 3:56 PM EST Images from the original note were not included. [facility] Emergency Department Chief Complaint: Chief Complaint Patient presents with Hypertension SUBJECTIVE Care by: Patti HPI: 30 y.o. at 36w3d presents to the OB Emergency Center with complaints of elevated BP inthe office. Pt also reports a mild headache that is not improving. Tried Tylenol with no improvement Reports good movement. Her history is complicated by: CHTN- currently on labetalol 200mg TID Hx of PreE with PTD GDMA2 Review of Systems Review of Systems Constitutional: Negative. Eyes: Negative. Cardiovascular: Negative. Respiratory: Negative. Skin: Negative. Musculoskeletal: Negative. Gastrointestinal: Negative. Genitourinary: Negative. Neurological: Negative. Psychiatric/Behavioral: Negative. Allergies No Known Allergies Home Medications Medications Prior to Admission Medication Sig Dispense Refill Last Dose/Taking azithromycin (ZITHROMAX) 250 mg tablet Take 1 tablet (250 mg total) by mouth in the morning. Take 2tablets the first day, then 1 tablet daily for 4 days. 11/03/2025 insulin glargine-yfgn 100 unit/mL (3 mL) insulin pen Prime with 2 units and give 5 units every morning and 25 units subQ at bedtime. 15 mL 3 11/03/2025 labetaloL (NORMODYNE) 100 mg tablet Take 2 tablets (200 mg total) by mouth 3 (three) times a day. 11/03/2025 PNV no.95-ferrous fumarate-FA () 28 mg iron- 800 mcg tablet Take 1 tablet by mouth in the morning. 11/03/2025 pen needle, diabetic (BD ULTRA-FINE REGGIE PEN NEEDLE) 32 gauge x 5/32 needle Use pen needles to give insulin. 100 each 1 OB History OB History Para Term AB Living 2 1 0 1 0 1 SAB IAB Ectopic Multiple Live Births 0 0 0 0 1 # Outcome Date GA Lbr Suresh/2nd Weight Sex Type Anes PTL Lv 2 Current 1 11/30/22 F Vag-Spont N CHANCE Complications: Preeclampsia Travel History Travel Screening Question Response Have you been in contact with someone who was sick? No / Unsure Do you have any of the following new or worsening symptoms? Cough;Sore throat Have you traveled internationally or domestically in the last month? No Travel History Travel since 10/04/25 No documented travel since 10/04/25 Medical History Past Medical History: Diagnosis Date Endometriosis [place] infection History of pre-eclampsia Hypertension Migraine Pleurisy Vision impairment Surgical History Past Surgical History: Procedure Laterality Date APPENDECTOMY 05/2016 DILATION AND CURETTAGE OF UTERUS 12/2022 retained placenta DISTAL CLAVICLE EXCISION Right 07/2018 LAPAROSCOPY DIAGNOSTIC / BIOPSY / ASPIRATION / LYSIS 02/2019 endometriosis LAPAROSCOPY DIAGNOSTIC / BIOPSY / ASPIRATION / LYSIS 02/29/2024 SHOULDER SURGERY Right 11/2022 Family History Family History Problem Relation Age of Onset Hypertension Mother Colon cancer Father Anemia Father Breast cancer Maternal Grandmother Hypertension Maternal Grandfather Cancer Maternal Grandfather Colon cancer Paternal Grandfather Social History Social History Tobacco Use Smoking status: Never Smokeless tobacco: Never Vaping Use Vaping status: Never Used Substance Use Topics Alcohol use: No Drug use: No OBJECTIVE Vital signs in last 24 hours: Vitals: 11/03/25 1526 BP: 135/88 Pulse: 102 Resp: 16 Temp: 36.6 ??C (97.8 ??F) RECENT LABS IN LAST 24 HOURS No results found for this or any previous visit (from the past 24 hours). Lab Review ABO/Rh: No results found for: ABOINTEP , RHINTEP Group B Strep: No results found for: CULTURE Rubella: Lab Results Component Value Date RUBELLAIMMU <0.90 05/04/2025 Hepatitis B Surface Antigen: Lab Results Component Value Date HEPBSAG negative 05/04/2025 HIV: Lab Results Component Value Date HIV4 non-reactive 05/04/2025 RPR (VDRL): No results found for: SYPHILISTOT One hour GTT:No results found for: LABGLUC Three Hour GTT: Lab Results Component Value Date GLUF 82 08/15/2025 ZNENUPC8AB 152 08/15/2025 XXGRETQ8VP 169 08/15/2025 XCIXTVI4NO 141 08/15/2025 Physical Exam General appearance - alert, well appearing, and in no distress Mental status - alert, oriented to person, place, and time Abdomen - soft, nontender, nondistended, no masses or organomegaly Back exam - full range of motion, no tenderness, palpable spasm or pain on motion Neurological - alert, oriented, normal speech, no focal findings or movement disorder noted Musculoskeletal - no joint tenderness, deformity or swelling Extremities - peripheral pulses normal, no pedal edema, no clubbing or cyanosis Skin - normal coloration and turgor, no rashes, no suspicious skin lesions noted PELVIC EXAM: Presentation: Cervix: Dilation: Effacement: Station: Position: FHR:Baseline 130 moderate variability,positive accels noted no decels Uterine Activity: irregular per toco ASSESSMENT & PLAN 1. 30 y.o., at 36w3d - Cat 1 FHT - NST reactive 2. Headache and CHTN - BP in SULEMAN: 135/88, 129/84, 115/96, 126/84, 126/84, 115/96 - Preeclampsia labs - PLT 240 - Uric Acid 6 - LDH 130 - AST/ALT 23/29 - UPCR .12 Plan - Plan to discharge home - Follow up with OBGYN tomorrow - Strong preeclampsia precautions and education given - Keep next scheduled OB appt Education and precautions reviewed. Call provider for regular contractions, decreased activity, or leaking vaginal fluid or vaginal bleeding. Keep next scheduled appointment in the office, or return to the [facility] as needed. NILES MARTINEZ APRN-CNM 11/03/25 1702 documented in this encounter Plan of Treatment Not on file documented as of this encounter Procedures Procedure NamePriorityDate/TimeAssociated IzvudlasrOjngauzsDXYGYWO33/09/2025 3:54 PM EST CBC (NO DIFF)STAT101/04/2025 3:54 PM EST URIC EEENPEDA87/09/2025 3:54 PM EST COMPREHENSIVE METABOLIC CNGAFCYRT93/09/2025 3:54 PM EST PROTEIN CREAT BHOMZUXDJ18/09/2025 3:39 PM EST documented in this encounter Results * (ABNORMAL) CBC without diff (11/03/2025 3:54 PM EST)ComponentValueRef Range Test MethodAnalysis TimePerformed AtPathologist PattcjmrgPCO64.3(H)4 - 11 10^9/11/03/2025 4:30 PM [facility] LABORATORYRBC Count4.07 3.8 - 5.2 10^12/L101/04/2025 4:30 PM [facility] Pjolqpzqwi57.311.7 - 15.5 g/dL11/03/2025 4:30 PM [facility] ITDBAYHIGEMybhuyfpry00.935 - 47 %11/03/2025 4:30 PM [facility] POYSVSDOPFXXW6451 - 100 fL11/03/2025 4:30 PM [facility] IIELXBJYJMCYX97.327 - 34 pg11/03/2025 4:30 PM [facility] GYNSFJVZSKVLTW85.432 - 36 g/dL11/03/2025 4:30 PM [facility] ZCGXNDIVADWOR62.611.5 - 15 %11/03/2025 4:30 PM [facility] LABORATORYPlatelet Rsxiv278176 - 450 10^9/L101/04/2025 4:30 PM [facility] LABORATORYMPV8.17 - 12 fL11/03/2025 4:30 PM [facility] LABORATORYSpecimen (Source)Anatomical Location / Laterality Collection Method / VolumeCollection TimeReceived TimeBloodVenous blood / UnknownVenipuncture / Rsdfabd7211/03/2025 3:54 PM EST11/03/2025 4:18 PM EST Narrative Authorizing ProviderResult TypeResult StatusDeirdre Hernandez GUNITE MIXER-CNMLAB BLOOD ORDERABLESFinal ResultPerforming OrganizationAddressCity/State/ZIP CodePhone Number [facility] [address] [place] [id number], * Uric acid (11/03/2025 3:54 PM EST)ComponentValueRef RangeTest MethodAnalysis TimePerformed AtPathologist SignatureURIC ACID6.02.6 - 7.2 mg/dL11/03/2025 4:52 PM [facility] LABORATORYSpecimen (Source)Anatomical Location / LateralityCollection Method / VolumeCollection TimeReceived Time BloodVenous blood / UnknownVenipuncture / Miqjevl9811/03/2025 3:54 PM EST 11/03/2025 4:18 PM EST Narrative Authorizing ProviderResult TypeResult StatusAllison Hernandez GUNITE MIXER-CNMLAB BLOOD ORDERABLESFinal ResultPerforming OrganizationAddressCity/State/ZIP CodePhone Number [facility] [address] [place] [address], * LDH (11/03/2025 3:54 PM EST)ComponentValueRef RangeTest MethodAnalysis Time Performed AtPathologist WdsonjrnuETS660522 - 235 U/L101/04/2025 4:52 PM EST [facility] LABORATORYSpecimen (Source)Anatomical Location / LateralityCollection Method / VolumeCollection TimeReceived TimeBloodVenous blood / UnknownVenipuncture / Dcibopf6311/03/2025 3:54 PM EST11/03/2025 4:18 PM EST Narrative Authorizing ProviderResult TypeResult StatusAllison Hernandez GUNITE MIXER-CNMLAB BLOOD ORDERABLESFinal ResultPerforming OrganizationAddressCity/State/ZIP CodePhone Number [facility] [address] [place] [address], * (ABNORMAL) Comprehensive metabolic panel (11/03/2025 3:54 PM EST)Component ValueRef RangeTest MethodAnalysis TimePerformed AtPathologist SignatureSODIUM 546676 - 146 mmol/L101/04/2025 4:52 PM [facility] POTASSIUM3.73.5 - 5.0 mmol/L101/04/2025 4:52 PM [facility] XGQPNKLVXFXYDIXOEN39728 - 109 mmol/L101/04/2025 4:52 PM [facility] LABORATORYCARBON LFRGNLK57(L)22 - 32 mmol/L101/04/2025 4:52 PM [facility] LABORATORYANION AIQ257 - 15 mmol/L101/04/2025 4:52 PM EST [facility] LABORATORYBLOOD UREA UJEGGZUX330 - 23 mg/dL11/03/2025 4:52 PM [facility] LABORATORYCREATININE0.580.40 - 1.00 mg/dL 11/03/2025 4:52 PM [facility] LABORATORYComment:METHOD TRACEABLE TO IDMS ZLCZORHHUSXXRNB570(H)65 - 99 mg/dL11/03/2025 4:52 PM [facility] LABORATORYCALCIUM8.68.5 - 10.5 mg/dL11/03/2025 4:52 PM [facility] LABORATORYTOTAL PROTEIN6.66.0 - 8.0 g/dL 11/03/2025 4:52 PM [facility] LABORATORYALBUMIN3.73.2 - 5.3 g/dL11/03/2025 4:52 PM [facility] LABORATORYALKALINE KZUIHZEZPKZ621(H)39 - 130 U/L101/04/2025 4:52 PM [facility] RUWFCABIMARRZ32<=41 U/L101/04/2025 4:52 PM [facility] RFYHOTPIOZXYU02<=31 U/L101/04/2025 4:52 PM [facility] LABORATORYBILIRUBIN,TOTAL1.00.3 - 1.2 mg/dL11/03/2025 4:52 PM [facility] LABORATORYEGFR Non-Race Dependent>90>=60 ml/min/1.73sq.m 11/03/2025 4:52 PM [facility] LABORATORYComment: Reported eGFR is based on the CKD-EPI 2020 equation that does not use a race coefficient. Specimen (Source)Anatomical Location / LateralityCollection Method / Volume Collection TimeReceived TimeBloodVenous blood / UnknownVenipuncture / Unknown 11/03/2025 3:54 PM EST11/03/2025 4:18 PM EST Narrative Authorizing ProviderResult TypeResult StatusAllison Hernandez GUNITE MIXER-CNMLAB BLOOD ORDERABLESFinal ResultPerforming OrganizationAddressCity/State/ZIP CodePhone Number [facility] [address] [place] [address], * Protein creat ratio (11/03/2025 3:39 PM EST)ComponentValueRef RangeTest Method Analysis TimePerformed AtPathologist SignatureURINE PROTEIN, RANDOM (MG/L)110 <120 mg/L101/04/2025 4:36 PM [facility] LABORATORYURINE CREATININE,RDM90.72mg/dL11/03/2025 4:36 PM [facility] LABORATORYU/PRO/WIND[employer] DEPL[employer]MENT LEAD RATIO CALC0.12<=0. 4:36 PM ESTTOGENERAL ACUTE HOSPITAL LABORATORYSpecimen (Source)Anatomical Location / LateralityCollection Method / VolumeCollection TimeReceived TimeUrineUrine specimen collection, clean catch / UnknownCollection / Szrypfs2211/03/2025 3:39 PM EST11/03/2025 4:01 PM EST Narrative [facility] - 11/03/2025 4:36 PM EST Nephrotic Syndrome is associated with ratios >3.5 Authorizing ProviderResult TypeResult StatusAllison Mary GUNITE MIXER-CNMURINE ORDERABLESFinal ResultPerforming OrganizationAddressCity/State/ZIP CodePhone Number [facility] [address] [place] [address], documented in this encounter Visit Diagnoses Diagnosis Insulin controlled gestational diabetes mellitus (GDM) in third trimester- Primary documented in this encounter Administered Medications Medication OrderMAR ActionAction DateDoseRateSite diphenhydrAMINE (BENADRYL) injection 25 mg 25 mg, intravenous, Once, On Sun11/03/25 at 1600, For 1 dose, Look-alike/sound-alike medication - verify indication for use. Given11/03/2025 4:02 PM EST25 mg lactated ringers infusion 250 mL/hr, intravenous, Continuous, Starting on Sun11/03/25 at 1615, For 1 day New Bag11/03/2025 4:02 PM MFN666 mL/hr250 mL/hr metoclopramide (REGLAN) injection 10 mg 10 mg, intravenous, Once, On Sun11/03/25 at 1600, For 1 dose, Administer over 2 minutes. Given11/03/2025 4:02 PM EST10 mgdocumented in this encounter Active and Recently Administered Medications Times are shown in EST.Medication Order/ diphenhydrAMINE (BENADRYL) injection 25 mg (COMPLETED) 25 mg, intravenous, Once, On Sun11/03/25 at 1600, For 1 dose, Look-alike/sound-alike medication - verify indication for use. * 1602 (Given - Provider: Jackelyn Adler RN) metoclopramide (REGLAN) injection 10 mg (COMPLETED) 10 mg, intravenous, Once, On Sun11/03/25 at 1600, For 1 dose, Administer over 2 minutes. * 1602 (Given - Provider: Jackelyn Adler RN) Medication Order lactated ringers infusion 250 mL/hr, intravenous, Continuous, Starting on Sun11/03/25 at 1615, For 1 day * 1602 (New Bag - Provider: Jackelyn Adler RN) * 1703 (Stop Bag - Provider: Jackelyn Adler RN) documented in this encounter Care Teams Team MemberRelationshipSpecialtyStart DateEnd Date Cruz Rodríguez MD [address] [place] [address] PCP - GeneralFamily Medicine12/02/18documented as of this encounter
--- OUTSIDE RECORDS SUMMARY | 2025-11-04 14:10 | XMS_ITS | Encounter Summary ---
Author Organization [facility] Address [address] [place] [address] Care Team Providers Care Poultry Farmer Meat Name Role Phone Eliceo Beltran Primary Care Provider Charlottecarol Eliceo Hurtado DO Unavailable [phone] Reason for Visit * ReasonCommentsRoutine Visit Encounter Details DateTypeDepartmentCare Team (Latest Contact Info)Nmtnhovccnf66/10/2025 2:10 PM ESTRoutine [facility] [address] [place] [phone] Nathan Pop DO [address] [place] [id number] Third trimester ([facility]); 36 weeks gestation of ([facility]) Social History Tobacco UseTypesPacks/DayYears UsedDateSmoking Tobacco: NeverSmokeless Tobacco: NeverAlcohol UseStandard Drinks/WeekCommentsNever0 (1 standard drink = 0.6 oz pure alcohol)caffeine: 1-2 cups per day, coffee and [id number] Health Literacy AnswerDate RecordedHow often do you [...] week12/29/2024How often do you attend faith or congregational services?Patient /03/2025Do you belong to any clubs or organizations such as faith groups, unions, fraZeeWhere or athletic leodan ups, or school groups?No12/29/2024How often do you attend meetings of the clubs or organizations you belong to?Patient yycpdcgj21/03/2025re you , , , , never , [...] RecordedPatient Health Questionnaire-2 Score0 07/30/2025[facility] [place] [facility] - Occupational Stress QuestionnaireAnswerDate RecordedDo you feel stress - tense, restless, nervous, or anxious, or unable to sleep at night because yourmind is troubled all the time - these days?Only a svqxik2512/29/2024Exercise Vital SignAnswerDate Recorded On average, how many [...] have received?High school /29/2023 Estimated Date of BcyyrnmnEdqwriyrNyt08/03/2026ased on last menstrual period of 02/21/2025Sex and Gender InformationValueDate RecordedSex Assigned at BirthNot on fileLegal XtsLkurym16/15/2023 7:18 PM EDTGender IdentityNot on file Sexual OrientationNot on 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 female who presents for Routine Visit Patient presents today for Return OB appointment. MEDICATIONS Current Outpatient Medications Medication Instructions Alcohol Swabs (Alcohol Prep Pad) 70 % pads 1 Pad, Topical, Daily, Use four times daily to check FSBS. azithromycin (Zithromax Z-Emre) 250 MG tablet As directed Blood Glucose Monitoring Suppl (D-Care Glucometer) w/Device [...] 02/19/2024 Diarrhea 03/24/2025 33 weeks gestation of ([facility]) 10/14/2025 Third trimester ([facility]) 10/14/2025 H/O pre-eclampsia in prior , currently ([facility]) 10/29/2025 H/O premature delivery 10/29/2025 Resolved Ambulatory Problems Diagnosis Date Noted No Resolved Ambulatory Problems Past Medical History: Diagnosis Date Amenorrhea d/t oral contraceptive pills John San infection GDM (gestational diabetes mellitus) ([facility]) Headache History of menstrual cramps ([facility]) Varicella zoster Visual impairment HISTORY PAST MEDICAL HISTORY SOCIAL HISTORY Past Medical History: Diagnosis Date Amenorrhea d/t oral contraceptive pills Endometriosis John San infection GDM (gestational diabetes mellitus) ([facility]) Headache History of menstrual cramps severe Hypertension ([facility]) x1 Varicella zoster unsure Visual impairment w/ [...] appearance. She is well-developed. Genitourinary: Vulva normal. Cardiovascular: Rate and Rhythm: Normal rate and [...] nursing note reviewed. Exam conducted with a sap specialist present. Vitals: Estimated body mass index is 31.28 kg/m?? as calculated from the following: Height as of 07/30/25: 5' 2 . Weight as of this encounter: 171 lb. BP: 134/84 Patient's last menstrual period was 02/21/2025. Assessment/Plan ICD-10-CM 1. Third trimester ([facility]) Z34.93 2. 36 weeks gestation of ([facility]) Z3A.36 POCT urinalysis dipstick manually resulted Assessment/Plan Return OB: Patient presents today for a routine obstetrics appointment. Patient is currently 36w4d . Patient states she is doing well but has complaints of being tired due to current . Patient has verbalizes frequent movement. labor precautions was discussed/given and patient was instructed to perform kick counts three times a day. Pt to be induced on 11/09/25 at 0500 with pitocin, iol consents signed and faxed. Orders Placed This Encounter Procedures POCT urinalysis dipstick manually resulted Follow Up: Patient is to return to office in 1 week for routine OB appointment. Documented by Christine Ravi LPN on behalf of: Nathan Pop DO documented in this encounter Plan of Treatment Not on file documented as of this encounter Procedures Procedure NamePriorityDate/TimeAssociated DiagnosisCommentsPOCT URINALYSIS SWGOGPGFTxtrtce40/10/2025 2:14 PM EST 36 weeks gestation of ([facility]) documented in this encounter Results * POCT urinalysis dipstick manually resulted (11/04/2025 2:14 PM EST)Component ValueRef RangeTest MethodAnalysis TimePerformed AtPathologist SignatureColor, UAYellowClarity, UAClearGlucose, UANegativeNegative - 2000(110) ++++ mg/dL Bilirubin, UANegativeNegative - 4(70) +++ mg/dLKetones, UANegativeNegative - 160(16) ++++ mg/dLSpec Grav, UA1.0151 - 1.03Blood, UANegativeNegative - 50 Teodoro/mcLpH, UA6.05 - 9Protein, UANegativeNegative - 2000(20) ++++ mg/dL Urobilinogen, UA1.00.2 - 12 mg/dLLeukocytes, UANegativeNegative - 500+++ Robinson/mcLNitrite, UANegativeNegative - PositiveSpecimen (Source)Anatomical Location / LateralityCollection Method / VolumeCollection TimeReceived Time Urine11/04/2025 2:14 PM EST Narrative Authorizing ProviderResult TypeResult StatusCorepearl Pop DOPOINT OF CARE TEST ENTER/EDIT ORDERABLESFinal Result documented in this encounter Visit Diagnoses Diagnosis Third trimester ([facility]) state, incidental 36 weeks gestation of ([facility]) documented in this encounter Care Teams Team MemberRelationshipSpecialtyStart DateEnd Date Eliceo Beltran DO [address] [place] [address] PCP - GeneralFamily Medicine02/14/24 Eliceo Beltran DO [address] [address] PCP - Medical Disputanta Commercial07/27/2412documented as of this encounter
[2025-11-09] VITALS (68 sets, daily range): BP systolic 114–162; BP diastolic 63–105; PULSE 77–111; TEMP 36.2–36.8
--- OUTSIDE RECORDS SUMMARY | 2025-11-09 05:00 | XMS_ITS | Encounter Summary ---
Author Organization [employer] tem Address [id number] [address] [place] [address] Care Team Providers Care Registered Nurse Cardiovascular Icu Name Role Phone Cruz Rodríguez MD Primary Care Provider [phone] Encounter Details DateTypeDepartmentCare Team (Latest Contact Info)Powngrmuyqj43/07/2025Travel Social History Tobacco UseTypesPacks/DayYears UsedDateSmoking Tobacco: NeverSmokeless Tobacco: NeverAlcohol UseStandard Drinks/WeekCommentsNo0 (1 standard drink = 0.6 oz pure alcohol)AUDIT-CAnswerDate RecordedQ1: How often do you have a drink containing alcohol?Never09/10/2025Q2: How many drinks containing alcohol do you have on a typical day when you are drinking?Patient does not drink09/10/2025Q3: How often do you have six or more drinks on one occasion?Never09/10/2025hildcareAnswer Date DhihuaasNyjxqfoarZyndpam86/13/2019EmploymentAnswerDate RecordedEmployment Iljbkcj5905/08/2019Hunger ScreeningAnswerDate RecordedWithin the past 12 months we worried whether our food would run out before we got money to buy more.Never True09/10/2025Within the past 12 months the food we bought just didn't last and we didn't have money to get more.Never True09/10/2025Purpose - LifeAnswerDate RecordedPurpose and direction in znpsOuljfbo44/11/2021Estimated Date of TsnaopflXruncnbtQzs49/03/2026Based on last menstrual period of 02/21/2025 (Exact Date)Sex and Gender InformationValueDate RecordedSex Assigned at BirthNot on fileLegal HbeNcxkfr32/07/2019 2:55 PM ESTGender IdentityNot on fileSexual OrientationNot on filedocumented as of this encounter Plan of Treatment Not on file documented as of this encounter Visit Diagnoses Not on filedocumented in this encounter Care Teams Team MemberRelationshipSpecialtyStart DateEnd Date Cruz Rodríguez MD [address] [place] [address] PCP - GeneralFamily Medicine12/02/18documented as of this encounter
--- OUTSIDE RECORDS SUMMARY | 2025-11-09 05:00 | XMS_ITS | Encounter Summary ---
Author Organization [employer] tem Address [id number] [address] [place] [address] Care Team Providers Care Geospatial Information Scientist Name Role Phone Cruz Rodríguez MD Primary Care Provider [phone] Encounter Details DateTypeDepartmentCare Team (Latest Contact Info)Ocidifzljhv59/03/2025Travel Social History Tobacco UseTypesPacks/DayYears UsedDateSmoking Tobacco: NeverSmokeless Tobacco: NeverAlcohol UseStandard Drinks/WeekCommentsNo0 (1 standard drink = 0.6 oz pure alcohol)AUDIT-CAnswerDate RecordedQ1: How often do you have a drink containing alcohol?Never09/10/2025Q2: How many drinks containing alcohol do you have on a typical day when you are drinking?Patient does not drink09/10/2025Q3: How often do you have six or more drinks on one occasion?Never09/10/2025hildcareAnswer Date BackgquqWspgafqfvVmyohue34/13/2019EmploymentAnswerDate RecordedEmployment Qmszvtd2305/08/2019Hunger ScreeningAnswerDate RecordedWithin the past 12 months we worried whether our food would run out before we got money to buy more.Never True09/10/2025Within the past 12 months the food we bought just didn't last and we didn't have money to get more.Never True09/10/2025Purpose - LifeAnswerDate RecordedPurpose and direction in xcdqArprket94/11/2021Estimated Date of DlzowkjjPvyunxhpIxb59/03/2026Based on last menstrual period of 02/21/2025 (Exact Date)Sex and Gender InformationValueDate RecordedSex Assigned at BirthNot on fileLegal JewJrilpc79/07/2019 2:55 PM ESTGender IdentityNot on fileSexual OrientationNot on filedocumented as of this encounter Plan of Treatment Not on file documented as of this encounter Visit Diagnoses Not on filedocumented in this encounter Care Teams Team MemberRelationshipSpecialtyStart DateEnd Date Cruz Rodríguez MD [address] [place] [address] PCP - GeneralFamily Medicine12/02/18documented as of this encounter
--- OUTSIDE RECORDS SUMMARY | 2025-11-09 05:00 | XMS_ITS | Encounter Summary ---
Author Organization [facility] Address [address] [place] [address] Care Team Providers Care Financial Economist Name Role Phone Eliceo Beltran Primary Care Provider [phone] CharlottecarolEliceo Bryant DAY Unavailable [phone] Encounter Details DateTypeDepartmentCare Team (Latest Contact Info)Xlrgscagmpn99/04/2025Telephone [facility] [address] [place] [address] [place] [phone] Candis Yanes LPN Social History Tobacco UseTypesPacks/DayYears UsedDateSmoking Tobacco: NeverSmokeless Tobacco: NeverAlcohol UseStandard Drinks/WeekCommentsNever0 (1 standard drink = 0.6 oz pure alcohol)caffeine: 1-2 cups per day, coffee and ckfY3266 Health Literacy AnswerDate RecordedHow often do you [...] relatives?Once a week12/29/2024How often do you attend hinduism or orthodoxy services?Patient trslrkla85/03/2025Do you belong to any clubs or organizations such as hinduism groups, unions, [employer] or athletic leodan ups, or school groups?No12/29/2024How often do you attend meetings of the clubs or organizations you belong to?Patient ewrvsqfx29/03/2025re you , , , , never , [...] RecordedPatient Health Questionnaire-2 Score0 07/30/2025[facility] [place] of Occupational Health - Occupational Stress QuestionnaireAnswerDate RecordedDo you feel stress - tense, restless, nervous, or anxious, or unable to sleep at night because yourmind is troubled all the time - these days?Only a gxkabw3112/29/2024Exercise Vital SignAnswerDate Recorded On average, how many [...] the highest degree you have received?High school maxvqyuy65/29/2023 Estimated Date of ActzigshEaezyzilFyn06/03/2026ased on last menstrual period of 02/21/2025Sex and Gender InformationValueDate RecordedSex Assigned at BirthNot on fileLegal GihZkqsgc00/15/2023 7:18 PM EDTGender IdentityNot on file Sexual [...] DO [address] [place] [address] PCP - GeneralFamily Medicine02/14/24 Eliceo Beltran DO [address] [place] [address] PCP - Medical [place] [employer]07/27/2412documented as of this encounter
--- OUTSIDE RECORDS SUMMARY | 2025-11-09 05:00 | XMS_ITS | Encounter Summary ---
Author Organization [facility] Address [address] [place] [address] Care Team Providers Care Admissions Officer Name Role Phone NirajEliceo kauffman Primary Care Provider [phone] CharlottecarolEliceo Bryant DAY Unavailable [phone] Encounter Details DateTypeDepartmentCare Team (Latest Contact Info)Ywqvavfolxz34/04/2025Clinisync Result Encounter [facility] External Department Unsolicited Nathan Pop DO [address] [facility] [place] [address] Social History Tobacco UseTypesPacks/DayYears UsedDateSmoking Tobacco: NeverSmokeless Tobacco: NeverAlcohol UseStandard Drinks/WeekCommentsNever0 (1 standard drink = 0.6 oz pure alcohol)caffeine: 1-2 cups per day, coffee and [id number] Health Literacy AnswerDate RecordedHow often do you [...] relatives?Once a week12/29/2024How often do you attend religious or sabianist services?Patient mupfebya08/03/2025Do you belong to any clubs or organizations such as religious groups, unions, [employer] or athletic leodan ups, or school groups?No12/29/2024How often do you attend meetings of the clubs or organizations you belong to?Patient ejvujtmj55/03/2025re you , , , , never , [...] all12/29/2024PHQ-2AnswerDate RecordedPatient Health Questionnaire-2 Score0 07/30/2025[facility] [place] of Occupational Health - Occupational Stress QuestionnaireAnswerDate RecordedDo you feel stress - tense, restless, nervous, or anxious, or unable to sleep at night because yourmind is troubled all the time - these days?Only a hquqfh3612/29/2024Exercise Vital SignAnswerDate Recorded On average, how many [...] place to sleep or slept in [facility] (including now)?No09/19/2023Housing Stability Vital SignAnswerDate RecordedIn [...] the highest degree you have received?High school lfguiqze42/29/2023 Estimated Date of DvhdzmckVyeovwqfWno96/03/2026ased on last menstrual period of 02/21/2025Sex and Gender InformationValueDate RecordedSex Assigned at BirthNot on fileLegal FfcEptvkp45/15/2023 7:18 PM EDTGender IdentityNot on file Sexual OrientationNot on 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 Not on fileNot on fileNot on filedocumented as of this encounter Plan of Treatment Not on file documented as of this encounter Procedures Procedure NamePriorityDate/TimeAssociated DiagnosisCommentsSTREP GP B CULTURE+MFFQNaoanya53/04/2025 9:28 AM EST documented in this encounter Results * STREP GP B CULTURE+RFLX (10/29/2025 9:28 AM EST)ComponentValueRef RangeTest MethodAnalysis TimePerformed AtPathologist SignatureSTREP GP B CULTURE+RFLX ??Strep Gp B Culture+Rflx TBHSTREP GP B CULTURE+RFLXNegativeTBHSTREP GP B CULTURE+RFLXCenters for Disease Control and Prevention (CDC) andTBHSTREP GP B CULTURE+RFLXAmerican Congress of Obstetricians and GynecologistsTBHSTREP GP B CULTURE+RFLX(ACOG) guidelines for prevention of group BTBHSTREP GP B CULTURE+RFLXstreptococcal (GBS) disease specify co-collection ofTBHSTREP GP B CULTURE+RFLXa vaginal and rectal swab specimen to maximizeTBHSTREP GP B CULTURE+RFLXsensitivity of GBS detection. Per the CDC and ACOG,TBHSTREP GP B CULTURE+RFLXswabbing both the lower vagina and rectumTBHSTREP GP B CULTURE+RFLXsubstantially increases the yield of detectionTBHSTREP GP B CULTURE+RFLXcompared with sampling the vagina alone.TBH STREP GP B CULTURE+RFLXPenicillin G, ampicillin, or cefazolin are indicatedTBH STREP GP B CULTURE+RFLXfor intrapartum prophylaxis of GBSTBHSTREP GP B CULTURE+RFLXcolonization. Reflex susceptibility testing should beTBHSTREP GP B CULTURE+RFLXperformed prior to use of clindamycin only on GBSTBHSTREP GP B CULTURE+RFLXisolates from penicillin-allergic women who areTBHSTREP GP B CULTURE+RFLXconsidered a high risk for anaphylaxis. Treatment withTBHSTREP GP B CULTURE+RFLXvancomycin without additional testing is warranted ifTBHSTREP GP B CULTURE+RFLXresistance to clindamycin is noted.TBHSTREP GP B CULTURE+RFLX Performed at: [facility] GP B CULTURE+[id number] [place], [place] [address]AWYXHMSP GP B CULTURE+RFLXLab Director: Cm Sandoval PhD, Phone: [phone] (Source)Anatomical Location / Laterality Collection Method / VolumeCollection TimeReceived Time10/29/2025 9:28 AM EST 10/29/2025 12:08 PM EST Narrative CLIN[facility] - 11/02/2025 4:10 PM EST Authorizing ProviderResult TypeResult StatusCorey Kiesha DOLAB BLOOD ORDERABLES Final ResultPerforming OrganizationAddressCity/State/ZIP CodePhone Number CL[facility] documented in this encounter Visit Diagnoses Not on filedocumented in this encounter Care Teams Team MemberRelationshipSpecialtyStart DateEnd Date Eliceo Beltran DO [address] [place] [address] PCP - GeneralFamily Medicine02/14/24 Eliceo Beltran DO [address] [place] [address] PCP - Medical [place] [employer]/documented as of this encounter
--- OUTSIDE RECORDS SUMMARY | 2025-11-09 05:00 | XMS_ITS | Encounter Summary ---
Author Organization [facility] Address [address] [place] [address] Care Team Providers Care Clerical Assigner Name Role Phone Eliceo Beltran DO Primary Care Provider [phone] CharlottegeovaniEliceo kauffman Unavailable [phone] Encounter Details DateTypeDepartmentCare Team (Latest Contact Info)Pzdtjjsacif97/10/2025bstract [facility] [address] [facility] [address] Nathan Pop DO [address] [facility] [address], [facility]11 Social History Tobacco UseTypesPacks/DayYears UsedDateSmoking Tobacco: NeverSmokeless Tobacco: NeverAlcohol UseStandard Drinks/WeekCommentsNever0 (1 standard drink = 0.6 oz pure alcohol)caffeine: 1-2 cups per day, coffee and [id number] Health Literacy AnswerDate RecordedHow often do you [...] week12/29/2024How often do you attend tenriism or lutheran services?Patient ynelxtve19/03/2025Do you belong to any clubs or organizations such as tenriism groups, unions, [place] or athletic leodan ups, or school groups?No12/29/2024How [...] Health Questionnaire-2 Score0 07/30/2025[facility] [place] of Occupational Health - Occupational Stress QuestionnaireAnswerDate RecordedDo you feel stress - tense, restless, nervous, or anxious, or unable to sleep at night because yourmind is troubled all the time - these days?Only a talrpj1412/29/2024Exercise Vital SignAnswerDate Recorded On average, how many [...] the highest degree you have received?High school bvngwzwe84/29/2023 Estimated Date of DrhvddsoEsbstoesZbh30/03/2026ased on last menstrual period of 02/21/2025Sex and Gender InformationValueDate RecordedSex Assigned at BirthNot on fileLegal CyqMlipyg95/15/2023 7:18 PM EDTGender IdentityNot on file Sexual OrientationNot on 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
--- OUTSIDE RECORDS SUMMARY | 2025-11-09 05:00 | XMS_ITS | Encounter Summary ---
Author Organization [facility] Address [address] [place] [address] Care Team Providers Care Investment Underwriter Name Role Phone Eliceo Beltran DO Primary Care Provider [phone] CharlottecarolEliceo Unavailable [phone] Encounter Details DateTypeDepartmentCare Team (Latest Contact Info)Gjgmbqfbuls93/10/2025amboo flowsheet LANETTE Armstrong [facility] [address] [facility] [place] [address] Nathan Pop DO [address] [facility] [address], [facility]11 Social History Tobacco UseTypesPacks/DayYears UsedDateSmoking Tobacco: NeverSmokeless Tobacco: NeverAlcohol UseStandard Drinks/WeekCommentsNever0 (1 standard drink = 0.6 oz pure alcohol)caffeine: 1-2 cups per day, coffee and bcsJ2173 Health Literacy AnswerDate RecordedHow often do you [...] week12/29/2024How often do you attend catholic or restorationist services?Patient chufvzjw84/03/2025Do you belong to any clubs or organizations such as catholic groups, unions, [employer] or athletic leodan ups, or school groups?No12/29/2024How [...] RecordedPatient Health Questionnaire-2 Score0 07/30/2025[facility] [place] of Occupational Health - Occupational Stress QuestionnaireAnswerDate RecordedDo you feel stress - tense, restless, nervous, or anxious, or unable to sleep at night because yourmind is troubled all the time - these days?Only a bvtyhu9512/29/2024Exercise Vital SignAnswerDate Recorded On average, how many [...] the highest degree you have received?High school dpnctfel07/29/2023 Estimated Date of XkjqdzzjAkrulzqwOeo59/03/2026ased on last menstrual period of 02/21/2025Sex and Gender InformationValueDate RecordedSex Assigned at BirthNot on fileLegal AjaIjxtqu77/15/2023 7:18 PM EDTGender IdentityNot on file Sexual OrientationNot on 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 [address] [place] [address] PCP - GeneralFamily Medicine02/14/24 Eliceo Beltran DO [address] [facility] [address] [place] [address] PCP - Medical [place] [employer]07/27/2412documented as of this encounter
--- OUTSIDE RECORDS SUMMARY | 2025-11-09 05:00 | XMS_ITS | Patient Health Record ---
Author Organization [facility] Address [address] [place] [address] Care Team Providers Care Ticket Dispatcher Name Role Phone Cruz Rodríguez Primary Care [...] Quad PFS (0.5mL Admin) 18 y/o & toxudDiwbefw18/30/2188Jtdrcivn8062 Fluzone Quad PFS (0.5mL Admin) 6 months & rffrqItmaodp81/17/5857Dfavwqgs4156 Fluzone, 6mo & older, Quad MDV (0.5mL Admin)Eiexrxm3007/16/20237800Aijmieva6790 Fluzone, 6mo & older, Quad PFS (0.5mL Admin)Ltnlegw50/18/2023Contraindications z2023 Fluzone, 6mo & older, Quad PFS (0.5mL Admin)Icwecfi11/20/2024Refused Social History Tobacco Use: Social History Observation [...] Status W/U Status Risk Notes Problem Tachycardia (4012698) Tachycardia (R00.0) ActiveconfirmedProblemObesity (037766857)Obesity (BMI 30-39.9) (E66.9)Active confirmed Plan Of Treatment No Information Insurance Providers Payer Name Payer Address Payer Phone Subscriber Number Group Number Insured Name Patient Relationship to Insured Coverage Start Date Coverage End Date [facility] [address] [place] [address] [id number] Driss Woodruff Self - patient is the insured Medical [place] of [facility] [address] [place] [phone] [id number], AlexisSelf - patient is the insured Medical (General) History Medical History History ICD Code Tachycardia R00.0 Surgical History Surgery Date(Month/Year) right shoulder surgery endometriosisappendectomyHospitalization History Reason Date(Month/Year) surgeries childbirth
--- OUTSIDE RECORDS SUMMARY | 2025-11-09 05:00 | XMS_ITS | Encounter Summary ---
Author Organization [facility] Address [address] [place] [address] Care Team Providers Care Assembler Fishing Floats Name Role Phone Eliceo Beltran Primary Care Provider [phone] CharlottegeovaniEliceo kauffman Unavailable [phone] Encounter Details DateTypeDepartmentCare Team (Latest Contact Info)Vxrxuywccsd03/13/2025Clinisync Result Encounter [facility] External Department Unsolicited Steph Keane, DEVYN [address] [facility] [place] [address] Social History Tobacco UseTypesPacks/DayYears UsedDateSmoking Tobacco: NeverSmokeless Tobacco: NeverAlcohol UseStandard Drinks/WeekCommentsNever0 (1 standard drink = 0.6 oz pure alcohol)caffeine: 1-2 cups per day, coffee and wfdX3372 Health Literacy AnswerDate RecordedHow often do you [...] week12/29/2024How often do you attend restorationism or alevism services?Patient vmsryzwe89/03/2025Do you belong to any clubs or organizations such as restorationism groups, unions, [place] or athletic leodan ups, or school groups?No12/29/2024How often do you attend meetings of the clubs or organizations you belong to?Patient mzdedwap75/03/2025re you , , , , never , [...] all12/29/2024PHQ-2AnswerDate RecordedPatient Health Questionnaire-2 Score0 07/30/2025[facility] [place] of Occupational Health - Occupational Stress QuestionnaireAnswerDate RecordedDo you feel stress - tense, restless, nervous, or anxious, or unable to sleep at night because yourmind is troubled all the time - these days?Only a ygcsbm6112/29/2024Exercise Vital SignAnswerDate Recorded On average, how many [...] place to sleep or slept in 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 [place] [address] ? Ultrasound Report ? Signed ? Patient: DRISS GAMA Daniel ?MR#: [id number] ?? : 1995 ?Acct:[id number] ?? Age/Sex: 30 / F ?ADM Date: 11/07/25 ?? Loc: US ? Attending Dr: Steph Keane ? Ordering Physician: Steph Keane ?? Date of Service: 11/07/25 ?? Procedure(s): US OB BPP w non-stress ?? Accession Number(s): [id number] ? cc: Steph Keane; Yomaira BELTRAN ? [facility] ? [address] ? [place] [address] ? Patient Name: ?? DRISS Sanchez RADHASONAM ? MRN: [facility]:[id number] ? date: 1995 ?Sex: F ?? Assigned Patient Location: US ?? Current Patient Location: ? Accession/Order Number: [id number] ?? Exam Date: 11/07/2025 ??10:09 ?Report Date: 11/07/2025 ??14:10 ? At the request of: ?? STEPH ??LAKHWINDER ? Procedure: ??US OB BPP w non-stress ? US OB BPP w non-stress ??11/07/2025 10:39 AM ? SIGNS AND SYMPTOMS: ?? INDUCED HYPERTENSION O13.9 ? PROTOCOL: Transabdominal sonographic imaging of the gravid uterus ? COMPARISON: None ? FINDINGS: ? Estimated gestational age: 37 weeks 0 days. ? heart rate: 145 bpm ? Amniotic fluid index: 9.79 cm with the deepest vertical pocket measuring 3.4 ?? cm. ? Biophysical profile: ? breathing movements: 2/2 ? Gross body movements: 2/2 ? tone: 2/2 ? Amniotic fluid volume: 2/2 ? US/US OB BPP w non-stress ?? IMPRESSION: ? Biophysical profile score: 07/03 ? Impression dictated by: Will Faria M.D. ??11/07/2025 2:10 PM ? Dictation Location: RADIO-PC-17 ? Electronically authenticated by: [id number] ??Y ?? Date: 11/07/2025 ??14:10 ? Dictated By: ?Will Faria M.D. ? Signed By: ?11/07/25 1412 ? DD/ 1410 ? TD/TT: ? Environmental Department Manager: Procedure Note Radiology, Radiologist, - 11/07/2025 [place] [address] Ultrasound Report Signed Patient: DRISS GAMA MMR#: [id number] : 1995Acct:[id number] Age/Sex: 30 / FADM Date: 11/07/25 Loc: US Attending Dr: Steph Keane Ordering Physician: Steph Keane Date of Service: 11/07/25 Procedure(s): US OB BPP w non-stress Accession Number(s): [id number] cc: Steph Keane; Yomaira BELTRAN The [address] [address] Patient Name: DRISS GAMA MRN: [id number] date: 1995 Sex: F Assigned Patient Location: US Current Patient Location: Accession/Order Number: [id number] Exam Date: 11/07/2025 10:09 Report Date: 11/07/2025 14:10 At the request of: STEPH KEANE Procedure: US OB BPP w non-stress US OB BPP w non-stress 11/07/2025 10:39 AM SIGNS AND SYMPTOMS: INDUCED HYPERTENSION O13.9 PROTOCOL: Transabdominal sonographic imaging of the gravid uterus COMPARISON: None FINDINGS: Estimated gestational age: 37 weeks 0 days. heart rate: 145 bpm Amniotic fluid index: 9.79 cm with the deepest vertical pocket measuring3.4 cm. Biophysical profile: breathing movements: 2/2 Gross body movements: 2/2 tone: 2/2 Amniotic fluid volume: 2/2 US/US OB BPP w non-stress IMPRESSION: Biophysical profile score: 8/8 Impression dictated by: Will Faria M.D. 11/07/2025 2:10 PM Dictation Location: Convrrt Electronically authenticated by: [id number] Y Date: 4:10 Dictated By: Will Faria M.D. Signed By:11/07/251411 DD/ 09 TD/TT: Environmental Department Manager: Authorizing ProviderResult TypeResult StatusKristina Lakhwinder NPCLINISYNC IMAGING Final Result documented in this encounter Visit Diagnoses Not on filedocumented in this encounter Care Teams Team MemberRelationshipSpecialtyStart DateEnd Date Eliceo Beltran DO [address] [place] [address] PCP - GeneralFamily Medicine02/14/24 Eliceo Beltran DO [address] [place] [address] PCP - Medical [place] Commercial07/27/2412documented as of this encounter
--- OUTSIDE RECORDS SUMMARY | 2025-11-09 05:00 | XMS_ITS | Encounter Summary ---
Author Organization [facility] Address [address] [place] [address] Care Team Providers Care Superintendent Measurement Name Role Phone Eliceo Beltran DO Primary Care Provider CharlottecarolEliceo Unavailable [phone] Encounter Details DateTypeDepartmentCare Team (Latest Contact Info)Pqcyzsaujew28/08/2025Telephone [facility] [address] [place] [address] Nathan Pop DO [address] Shereen Armstrong, [facility] Social History Tobacco UseTypesPacks/DayYears UsedDateSmoking Tobacco: NeverSmokeless Tobacco: NeverAlcohol UseStandard Drinks/WeekCommentsNever0 (1 standard drink = 0.6 oz pure alcohol)caffeine: 1-2 cups per day, coffee and [id number] Health Literacy AnswerDate RecordedHow often do you [...] week12/29/2024How often do you attend scientology or adventist services?Patient tcdiduzo66/03/2025Do you belong to any clubs or organizations such as scientology groups, unions, Seer or athletic leodan ups, or school groups?No12/29/2024How often do you attend meetings of the clubs or organizations you belong to?Patient xmgzthit58/03/2025re you , , , , never , [...] RecordedPatient Health Questionnaire-2 Score0 07/30/2025[facility] [place] [facility] - Occupational Stress QuestionnaireAnswerDate RecordedDo you feel stress - tense, restless, nervous, or anxious, or unable to sleep at night because yourmind is troubled all the time - these days?Only a fikfvz3812/29/2024Exercise Vital SignAnswerDate Recorded On average, how many [...] sleep or slept in [facility] (including now)?No09/19/2023Housing Stability [...] have received?High school /29/2023 Estimated Date of XbzbilhxKlthcocyFjp05/03/2026ased on last menstrual period of 02/21/2025Sex and Gender InformationValueDate RecordedSex Assigned at BirthNot on fileLegal SohVxewyu49/15/2023 7:18 PM EDTGender IdentityNot on file Sexual OrientationNot on 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 I have like a stuffy nose and like a cough. I was just wondering what would be the best cold medicine to take or any cold medicine just because I am trying to get it out of my system before next week, if you could just Call me back and let me know if I do not answer. You can just leave it on the my voicemail. Patient call was returned and she was advised of the OTC meds which are safe she states she has hadthis for some time and she was advised script would be sent in for her and if needing anything elselet the office know at her appointment. PVU documented in this encounter Plan of Treatment Not on file documented as of this encounter Visit Diagnoses Diagnosis Upper respiratory tract infection, unspecified type documented in this encounter Care Teams Team MemberRelationshipSpecialtyStart DateEnd Date Eliceo Beltran DO [address] [place] [address] PCP - GeneralFamily Medicine02/14/24 Eliceo Beltran DO [address] [place] [address] PCP - Medical [place] [employer]07/27/2412documented as of this encounter
--- OUTSIDE RECORDS SUMMARY | 2025-11-09 05:00 | XMS_ITS | Encounter Summary ---
Author Organization [facility] Address [address] [place] [address] Care Team Providers Care Trim Sawyer Name Role Phone NirajEliceo kauffman Primary Care Provider [phone] RubyEliceo Bryant DAY Unavailable [phone] Encounter Details DateTypeDepartmentCare Team (Latest Contact Info)Bqigtnxyyas28/01/2025Telephone [facility] [address] [place] [address] [place] [id number] Rossy Davila MA Social History Tobacco UseTypesPacks/DayYears UsedDateSmoking Tobacco: NeverSmokeless Tobacco: NeverAlcohol UseStandard Drinks/WeekCommentsNever0 (1 standard drink = 0.6 oz pure alcohol)caffeine: 1-2 cups per day, coffee and [id number] Health Literacy AnswerDate RecordedHow often do you [...] often do you attend roman catholic or holiness services?Patient wciilvml57/03/2025Do you belong to any clubs or organizations such as roman catholic groups, unions, fraEPV SOLAR or athletic leodan ups, or school groups?No12/29/2024How often do you attend meetings of the clubs or organizations you belong to?Patient sheezaxm36/03/2025re you , , , , never , [...] RecordedPatient Health Questionnaire-2 Score0 07/30/2025[facility] [place] [facility] - Occupational Stress QuestionnaireAnswerDate RecordedDo you feel stress - tense, restless, nervous, or anxious, or unable to sleep at night because yourmind is troubled all the time - these days?Only a rlwegt0712/29/2024Exercise Vital SignAnswerDate Recorded On average, how many [...] place to sleep or slept in [facility] (including now)?No09/19/2023Housing Stability Vital SignAnswerDate RecordedIn [...] the highest degree you have received?High school kvgyymbq68/29/2023 Estimated Date of RqvkitjyYywawqjyNdz70/03/2026ased on last menstrual period of 02/21/2025Sex and Gender InformationValueDate RecordedSex Assigned at BirthNot on fileLegal ZniTnclwa40/15/2023 7:18 PM EDTGender IdentityNot on file Sexual [...] Visit Diagnoses Diagnosis Hypertension affecting , antepartum ([facility]) documented in this encounter Care Teams Team MemberRelationshipSpecialtyStart DateEnd Date Eliceo Beltran DO [address] [place] [address] PCP - GeneralFamily Medicine02/14/24 Eliceo Beltran DO [address] [place] [address] PCP - Medical [place] [employer]07/27/2412documented as of this encounter
--- OUTSIDE RECORDS SUMMARY | 2025-11-09 05:00 | XMS_ITS | Clinical Summary ---
Author Organization [employer] tem Address [id number] [address] [place] [address] Care Team Providers Care Time Analysis Clerk Name Role Phone Cruz Rodríguez MD Primary Care Provider [phone] Allergies No known active allergies Medications MedicationSigDispense [...] ProblemNoted DateDiagnosed DateEssential hypertension affecting in third rudrgckmo99/10/2025Insulin controlled gestational diabetes mellitus (GDM) in third lmijdkwbx07/26/2025Estimated Date of DeliveryCommentsYes 11/28/2025ased on last menstrual period of 02/21/2025 (Exact Date) Encounters DateTypeDepartmentCare NbzgAcakllbitlb93/09/2025 3:08 PM EST - 11/03/2025 5:57 PM ESTHospital Encounter [facility] [address] [place] [address] Trista Leach, Insulin controlled gestational diabetes mellitus (GDM) in third trimester (Primary Dx) Discharge Disposition: Home11/03/2025 2:30 PM ESTOffice Visit Maternal- Medicine at [facility] [address] [place] [address] Kayleigh Rizzo, PA-C Insulin controlled gestational diabetes mellitus (GDM) in third trimester (Primary Dx); Essential hypertension affecting in third /07/2025Travel 10/28/20250722Uuuqdl57/25/2025Telephone Maternal- Medicine at [facility] [address] [place] [address] Cha Harris RN 10/20/2025Orders Only Maternal- Medicine at [facility] [address] [place] [address] Kayleigh Rizzo, PA-Natividad Essential hypertension affecting in third /14/2025Orders Only Maternal- Medicine at [facility] [address] [place] [address] Zora Samuels, DIALLO Essential hypertension affecting in third trimester (Primary Dx); Insulin controlled gestational diabetes mellitus (GDM) in third trimester 10/08/2025Orders Only Maternal Medicine [place] [address] [facility] [address] [place] [address] Danae Ramirez, RN Insulin controlled gestational diabetes mellitus (GDM) in third trimester (Primary Dx); Essential hypertension affecting in third trimester; Encounter for follow-up ultrasound of anatomy; History of pre-eclampsia in prior , currently ; Hx of delivery, currently , second loaaxjkvg94/11/2025 2:30 PM ESTTelemedicine Maternal- Medicine at [facility] [address] [facility] [place] [address] Kayleigh Rizzo, PA-C Insulin controlled gestational diabetes mellitus (GDM) in third trimester (Primary Dx); Essential hypertension affecting in third lfuqmxyag52/11/2025Travel 10/05/2025Telephone Maternal- Medicine at [facility] [address] [place] [address] Anjana Davalos, DIALLO 10/04/20254019Mnojnj23/03/2025Telephone Maternal- Medicine at [facility] [address] [place] [address] Cha Harris, DIALLO 09/28/2025Orders Only Maternal- Medicine at [facility] [address] [place] [address] Kayleigh Rizzo, PA-C Essential hypertension affecting in third ykyaxtxms75/27/2025Telephone Maternal- Medicine at [facility] [address] [facility] [place] [address] Verito Gudino LD 09/21/2025Remote Patient Monitoring Maternal- Medicine at [facility] [address] [facility] [place] [address] Kayleigh Rizzo, PA-C Insulin controlled gestational diabetes mellitus (GDM) in third trimester (Primary Dx); Essential hypertension affecting in third ktjewzbzc44/23/2025Orders Only Maternal- Medicine at [facility] [address] [facility] [place] [address] Camila Arciniega, CLASS C TRUCK DRIVER-CNM Essential hypertension affecting in third kzmthayoh79/22/2025Telephone Maternal- Medicine at [facility] [address] [place] [address] Cha Harris, DIALLO 09/15/2025Orders Only Maternal- Medicine at [facility] [address] [place] [address] Kayleigh Rizzo, FORREST Essential hypertension affecting in third bvacyhxob66/16/2025 11:00 AM EDTTelemedicine Maternal Medicine [place] [address] [facility] [address] [place] [address] Quynh Clements MD 28 weeks gestation of (Primary Dx); Insulin controlled gestational diabetes mellitus (GDM) in second trimester; Essential hypertension affecting in third pwskjbogi60/16/2025Orders Only Maternal- Medicine at [facility] [address] [place] [address] Zora Samuels RN Essential hypertension affecting in third trimester (Primary Dx); Insulin controlled gestational diabetes mellitus (GDM) in second trimester; Encounter for follow-up ultrasound of vjgywnz6309/10/20259449Fgycxq97/10/2025 3:00 PM EDTOffice Visit Maternal- Medicine at [facility] [address] [place] [address] Jean Carlos Denise MD Diet controlled gestational diabetes mellitus (GDM) in second trimester (Primary Dx); Essential hypertension affecting in third hficisvsl24/08/2025Travel 09/01/2025Telephone Maternal- Medicine at [facility] [address] [place] [address] Cha Harris, DIALLO 08/24/2025 1:30 PM EDTSupport Visit Maternal- Medicine at [facility] [address] [place] [address] Teena Sarmiento RN Fischer, Kelli, RD Gestational diabetes mellitus (GDM) in second trimester, gestational diabetes method of control hxnoclkrjht15/28/1941Vdbwbq99/27/6478Qcxtrf86/26/2025bstract Maternal- Medicine at [facility] [address] [place] [address] External, Scanning Provider 08/19/2025Orders Only Maternal- Medicine at [facility] [address] [place] [address] Ref Prov, Not In System 08/18/2025bstract Maternal- Medicine at [facility] [address] [place] [address] Quynh Clements MD 08/18/2025Orders Only Maternal- Medicine at [facility] [address] [place] [address] Khalida Garrett RN History of pre-eclampsia in [...] or more drinks on one occasion?Never09/10/2025hildcareAnswer Date FyodpcnzAmgmhhnsrOlebbtr78/13/2019EmploymentAnswerDate RecordedEmployment Codrajq6005/08/2019Hunger ScreeningAnswerDate RecordedWithin the past 12 months we worried whether our food would run out before we got money to buy more.Never True09/10/2025Within the past 12 months the food we bought just didn't last and we didn't have money to get more.Never True09/10/2025Purpose - LifeAnswerDate RecordedPurpose and direction in jtekJrcawde19/11/2021Estimated Date of QgxshyblBzjjcdxaHpz69/03/2026Based on last menstrual period of 02/21/2025 (Exact Date)Sex and Gender InformationValueDate RecordedSex Assigned at BirthNot on fileLegal NpcMrypie96/07/2019 2:55 PM ESTGender IdentityNot on fileSexual OrientationNot on file Last Filed Vital Signs Vital SignReadingTime TakenCommentsBlood Hyupobap662/6711/03/2025 4:45 PM EST Orxrp776711/03/2025 4:45 PM AAUQsjrzbkchip73.6 ??C (97.8 ??F)11/03/2025 3:26 PM ESTRespiratory Todk290401/04/2025 3:26 PM ESTOxygen Klptpfjydl42%12/10/2018 11:10 AM ESTInhaled Oxygen Concentration--Bzemhf95 kg (172 lb)11/03/2025 3:26 PM EST Ugtrqi918.5 cm (5' 2 )11/03/2025 3:26 PM ESTBody Mass Index31.4611/03/2025 3:26 PM EST Plan of Treatment Health MaintenanceDue DateLast DoneCommentsDepression Sqxifnrvr83/08/2007dult BMI Follow Up Plan2013DTaP,Tdap and Td Vaccines (7 - Td or Tdap)2024 2014, 05/03/2000, 12/29/1997, Additional history existsInfluenza Vaccine RSV ( or age 60+ yrs) (1 - Risk 1-dose series)10/03/2025dult BMI Wfbxrvyyw315Tobacco Screening Pap Smear Medical Devices Not on file Procedures Procedure NamePriorityDate/TimeAssociated DiagnosisCommentsCBC (NO DIFF)STAT 11/03/2025 3:54 PM EST URIC BVCSUUPT42/09/2025 3:54 PM EST ULVBKMR1711/03/2025 3:54 PM EST COMPREHENSIVE METABOLIC ROMQNNXHH09/09/2025 3:54 PM EST PROTEIN CREAT GJHFNUSFL76/09/2025 3:39 PM EST US MFM OB FOLLOW-UP, 1 BVAQATpkmrvo82/03/2025 12:08 PM EST Essential hypertension affecting in third trimester Insulin controlled gestational diabetes mellitus (GDM) in third trimester US MFM OB FOLLOW-UP, 1 WELVMQctulrh06/13/2025 8:55 AM EST Essential hypertension affecting in third trimester Insulin controlled gestational diabetes mellitus (GDM) in second trimester Encounter for follow-up ultrasound of anatomy US MFM COMPREHENSIVE ANATOMIC FWEUOQPlgztnu98/16/2025 10:56 AM EDT History of pre-eclampsia in prior , currently GLUCOSE TOLERANCE, 3 FWSRSYigqdni22/20/2025 GLUCOSE TOLERANCE, SGWMRSREtesjhs25/20/2025 GLUCOSE TOLERANCE, 1 EXAXUdrzhdp13/20/2025 SECOND HOUR GLUCOSE TOLERANCE 100 GM BLYPValkuns75/20/2025 ULTRASOUND HXNTAWAixbegy84/17/2025 3:39 PM EDTGLU 1H POST 50G LOADRoutine 08/12/2025 from Last 3 Months Results * LDH (11/03/2025 3:54 PM EST)ComponentValueRef RangeTest MethodAnalysis Time Performed AtPathologist YfwpsbuxfWNV655448 - 235 U/L101/04/2025 4:52 PM EST [facility]pecimen (Source)Anatomical Location / LateralityCollection Method / VolumeCollection TimeReceived TimeBloodVenous blood / UnknownVenipuncture / Ughxwgi6011/03/2025 3:54 PM EST11/03/2025 4:18 PM EST Narrative Authorizing ProviderResult TypeResult StatusAllpia Hernandez CLASS C TRUCK DRIVER-CNMLAB BLOOD ORDERABLESFinal ResultPerforming OrganizationAddressCity/State/ZIP CodePhone Number [facility] [address] [place] [address], * (ABNORMAL) CBC without diff (11/03/2025 3:54 PM EST)ComponentValueRef Range Test MethodAnalysis TimePerformed AtPathologist CymxdxqfwJNW23.3(H)4 - 11 10^9/L101/04/2025 4:30 PM [facility] LABORATORYRBC Count4.07 3.8 - 5.2 10^1211/03/2025 4:30 PM [facility] Arfxmuefju50.311.7 - 15.5 g/dL11/03/2025 4:30 PM [facility] CJUKIQGXFKTaomytsuez58.935 - 47 %11/03/2025 4:30 PM [facility] KBLWOTXDTCVAA1308 - 100 fL11/03/2025 4:30 PM [facility] ZGWKNPENRLQHQ85.327 - 34 pg11/03/2025 4:30 PM [facility] LJZEZWAALIYPEP22.432 - 36 g/dL11/03/2025 4:30 PM [facility] WKJTKLYLKCWBO38.611.5 - 15 %11/03/2025 4:30 PM [facility] LABORATORYPlatelet Imgyu642506 - 450 10^9/L101/04/2025 4:30 PM [facility] LABORATORYMPV8.17 - 12 fL11/03/2025 4:30 PM [facility] LABORATORYSpecimen (Source)Anatomical Location / Laterality Collection Method / VolumeCollection TimeReceived TimeBloodVenous blood / UnknownVenipuncture / Mfndsnc0911/03/2025 3:54 PM EST11/03/2025 4:18 PM EST Narrative Authorizing ProviderResult TypeResult StatusDeirdre Hernandez CLASS C TRUCK DRIVER-CNMLAB BLOOD ORDERABLESFinal ResultPerforming OrganizationAddressCity/State/ZIP CodePhone Number [facility] [address] [place] [address], * Uric acid (11/03/2025 3:54 PM EST)ComponentValueRef RangeTest MethodAnalysis TimePerformed AtPathologist SignatureURIC ACID6.02.6 - 7.2 mg/dL11/03/2025 4:52 PM [facility] LABORATORYSpecimen (Source)Anatomical Location / LateralityCollection Method / VolumeCollection TimeReceived Time BloodVenous blood / UnknownVenipuncture / Motrpxf4211/03/2025 3:54 PM EST 11/03/2025 4:18 PM EST Narrative Authorizing ProviderResult TypeResult StatusMagee General Hospitalpia Hernandez CLASS C TRUCK DRIVER-CNMLAB BLOOD ORDERABLESFinal ResultPerforming OrganizationAddressCity/State/ZIP CodePhone Number [facility] [address] [place] [address], * (ABNORMAL) Comprehensive metabolic panel (11/03/2025 3:54 PM EST)Component ValueRef RangeTest MethodAnalysis TimePerformed AtPathologist SignatureSODIUM 642436 - 146 mmol/L101/04/2025 4:52 PM [facility] POTASSIUM3.73.5 - 5.0 mmol/L101/04/2025 4:52 PM [facility] DPFMYVCNMQEDHEMHLZ44063 - 109 mmol/L101/04/2025 4:52 PM [facility] LABORATORYCARBON KEPMMEN78(L)22 - 32 mmol/L101/04/2025 4:52 PM [facility] LABORATORYANION CDZ271 - 15 mmol/L101/04/2025 4:52 PM [facility] LABORATORYBLOOD UREA FYYAFMSK341 - 23 mg/dL11/03/2025 4:52 PM [facility] LABORATORYCREATININE0.580.40 - 1.00 mg/dL 11/03/2025 4:52 PM [facility] LABORATORYComment:METHOD TRACEABLE TO IDND VTEPCJHMYZTOPZJ079(H)65 - 99 mg/dL11/03/2025 4:52 PM [facility] LABORATORYCALCIUM8.68.5 - 10.5 mg/dL11/03/2025 4:52 PM [facility] LABORATORYTOTAL PROTEIN6.66.0 - 8.0 g/dL 11/03/2025 4:52 PM [facility] LABORATORYALBUMIN3.73.2 - 5.3 g/dL11/03/2025 4:52 PM [facility] LABORATORYALKALINE HKVOQKZEOIP250(H)39 - 130 U/L101/04/2025 4:52 PM [facility] ZIXYLYWQPTBES18<=41 U/L101/04/2025 4:52 PM [facility] KTYZGCCINZONK41<=31 U/L101/04/2025 4:52 PM [facility] LABORATORYBILIRUBIN,TOTAL1.00.3 - 1.2 mg/dL11/03/2025 4:52 PM [facility]ORYEGFR Non-Race Dependent>90>=60 ml/min/1.73sq.m 11/03/2025 4:52 PM [facility] LABORATORYComment: Reported eGFR is based on the CKD-EPI 2020 equation that does not use a race coefficient. Specimen (Source)Anatomical Location / LateralityCollection Method / Volume Collection TimeReceived TimeBloodVenous blood / UnknownVenipuncture / Unknown 11/03/2025 3:54 PM EST11/03/2025 4:18 PM EST Narrative Authorizing ProviderResult TypeResult StatusAllison Hernandez CLASS C TRUCK DRIVER-CNMLAB BLOOD ORDERABLESFinal ResultPerforming OrganizationAddressCity/State/ZIP CodePhone Number [facility] [address] [place] [address], * Protein creat ratio (11/03/2025 3:39 PM EST)ComponentValueRef RangeTest Method Analysis TimePerformed AtPathologist SignatureURINE PROTEIN, RANDOM (MG/L)110 <120 mg/L101/04/2025 4:36 PM [facility] LABORATORYURINE CREATININE,RDM90.72mg/dL11/03/2025 4:36 PM [facility] LABORATORYU/PRO/RETAIL ASSISTANT RATIO CALC0.12<=0. 4:36 PM [facility] LABORATORYSpecimen (Source)Anatomical Location / LateralityCollection Method / VolumeCollection TimeReceived TimeUrineUrine specimen collection, clean catch / UnknownCollection / Ulmqwsq7011/03/2025 3:39 PM EST11/03/2025 4:01 PM EST Narrative [facility] - 11/03/2025 4:36 PM EST Nephrotic Syndrome is associated with ratios >3.5 Authorizing ProviderResult TypeResult StatusAllison Mary CLASS C TRUCK DRIVER-CNMURINE ORDERABLESFinal ResultPerforming OrganizationAddressCity/State/ZIP CodePhone Number [facility] [address] [place] [address], * [facility] OB FOLLOW-UP, 1 FETUS (10/28/2025 12:08 PM EST) Only the most recent of3 resultswithin the time period is included. Anatomical RegionLateralityModalityOB-GYNUltrasoundSpecimen (Source)Anatomical Location / LateralityCollection Method / VolumeCollection TimeReceived Time 10/28/2025 11:14 AM EST Narrative 10/28/2025 4:49 PM EST NAME: ??JAYY REYNAGA : 1995 SEX: F Accession Number: [id number] ORDERING PHYSICIAN: JEAN CARLOS DENISE REFERRING PHYSICIAN: JONY MEJÍA Coding Procedures ? 46876: Ultrasound, uterus, real time with image documentation, follow up,transabdominal ? approach per fetus Indication Screening for follow-up survey, Gestational diabetes, Chronic hypertension affecting , History of prior with pre-eclampsia , History of prior with delivery , Previous surgery to cervix -(D&C). History OB History ? 2. Para 1 ? A1L6N0D7 Current Cell free DNA ?Low Risk analysis [...] (oz) ? 5 oz EFW by: ?Hadlock (RSV-KJ-XD-FL) Extended Tibia ??57.2 mm 33w 4d 21% [employer] Shift Manager ? 1.4 mm Head / Face / Neck Cephalic index 0.82 ? 64% Nicolaides Nasal bone: ?documented previously Extremities / Bony Struc FL / BPD ? 0.70 FL / HC ?0.20 FL / AC ?0.20 Other Structures FHR ?129 bpm Anatomy The following structures appear normal: Head/Neck: Cranium. Lateral ventricles. Cavum septi pellucidi. Parenchyma. Heart/Thorax: 4-chamber view. RVOT view. LVOT view. 3-vessel view. 2-chukoo-tbszmpu view. Situs. Aortic arch view. ? Interventricular [...] is a normal variant. Recommendations Please see [facility] recommendations from prior clinical and/or ultrasound [...] primary OB provider unless otherwise specified by [facility]. Results forwarded to ordering provider so they can follow up with the patient as necessary. Procedure Note Trinity Parson MD - 10/28/2025 NAME: JAYY REYNAGA : 1995 SEX: F Accession Number: [id number] ORDERING PHYSICIAN: JEAN CARLOS DENISE REFERRING PHYSICIAN: JONY MEJÍA Coding Procedures 62044: Ultrasound, uterus, real time with image documentation, follow up, transabdominal approach per fetus Indication Screening for follow-up survey, Gestational diabetes, Chronic hypertension affecting , History of prior with pre-eclampsia , History of prior with delivery ,Previous surgery to cervix -(D&C). History OB History 2. Para 1 A8P1S0K2 Current Cell free DNA Low Risk analysis [...] EFW (oz) 5 oz EFW by: Hadlock (TGH-CG-CD-FL) Extended Tibia 57.2 mm 33w 4d 21% [employer] Shift Manager 1.4 mm Head / Face / Neck Cephalic index 0.82 64% Nicolaides Nasal bone: documented previously Extremities / Bony Struc FL / BPD 0.70 FL / HC 0.20 FL / AC 0.20 Other Structures FHR 129 bpm Anatomy The following structures appear normal: Head/Neck: Cranium. Lateral ventricles. Cavum septi pellucidi.Parenchyma. Heart/Thorax: 4-chamber view. RVOT view. LVOT view. 3-vessel view. 9-ondabt-wlsbtsk view. Situs. Aortic arch view. Interventricular septum. [...] is a normal variant. Recommendations Please see [facility] recommendations from prior clinical and/or ultrasoundreport [...] necessary. Authorizing ProviderResult TypeResult StatusJean Carlos Denise MDIMGALLUP INDIAN [facility] ORDERABLES Final Result * 2nd hr Glucose Tolerance 100 gm load (08/15/2025)ComponentValueRef RangeTest MethodAnalysis TimePerformed AtPathologist SignatureGlucose Tolerance Test 2 Mfjb416CVGWSXQQ TRANSCRIBED RESULTSSpecimen (Source)Anatomical Location / LateralityCollection Method / VolumeCollection TimeReceived TimeBloodVenous blood / Unknown Narrative Authorizing ProviderResult TypeResult StatusNot In System Ref Resermap BLOOD ORDERABLESFinal ResultPerforming OrganizationAddressCity/State/ZIP CodePhone Number MANUALLY TRANSCRIBED RESULTS * Glucose tolerance, 1 hour (08/15/2025)ComponentValueRef RangeTest Method Analysis TimePerformed AtPathologist SignatureGlucose Tolerance Test 1 Eupg189 MANUALLY TRANSCRIBED RESULTSSpecimen (Source)Anatomical Location / Laterality Collection Method / VolumeCollection TimeReceived TimeBloodVenous blood / Unknown Narrative Authorizing ProviderResult TypeResult StatusNot In System Ref Womenalia.comLAB BLOOD ORDERABLESFinal ResultPerforming OrganizationAddressCity/State/ZIP CodePhone Number MANUALLY TRANSCRIBED RESULTS * Glucose tolerance, 3 hours (08/15/2025)ComponentValueRef RangeTest Method Analysis TimePerformed AtPathologist SignatureGlucose Tolerance Test 3 Orhj445 MANUALLY TRANSCRIBED RESULTSSpecimen (Source)Anatomical Location / Laterality Collection Method / VolumeCollection TimeReceived TimeBloodVenous blood / Unknown Narrative Authorizing ProviderResult TypeResult StatusNot In System Ref ProvLAB BLOOD ORDERABLESFinal ResultPerforming OrganizationAddressCity/State/ZIP CodePhone Number MANUALLY TRANSCRIBED RESULTS * Glucose, tolerance fasting (08/15/2025)ComponentValueRef RangeTest Method Analysis TimePerformed AtPathologist SignatureGlucose Tolerance Test Kxtolum99 MANUALLY TRANSCRIBED RESULTSSpecimen (Source)Anatomical Location / Laterality [...] TimePerformed AtPathologist SignatureGlucose, 1 hr PP 50GM scla991 MANUALLY TRANSCRIBED RESULTSSpecimen (Source)Anatomical Location / Laterality Collection Method / VolumeCollection TimeReceived TimeBloodVenous blood / Unknown Narrative Authorizing ProviderResult TypeResult StatusNot In System Ref ProvLAB BLOOD ORDERABLESFinal ResultPerforming OrganizationAddressCity/State/ZIP CodePhone Number MANUALLY TRANSCRIBED RESULTS from Last 3 Months Insurance MemberSubscriberPlan / Payer (Effective 2024-Present)Name:Driss Gama Relation to Subscriber:SelfName:Driss Gama Payer ID:Not on file Type:Not on file Address: [place] [id number] Care Teams Team MemberRelationshipSpecialtyStart DateEnd Date Cruz Rodríguez MD [address] [place] [address] PCP [facility]/02/18
--- OUTSIDE RECORDS SUMMARY | 2025-11-09 05:00 | XMS_ITS | Encounter Summary ---
Author Organization [facility] Address [address] [place] [place] [address] Care Team Providers Care Crozer Operator Name Role Phone Eliceo Beltran DO Primary Care Provider [phone] CharlottecarolEliceo Unavailable [phone] Encounter Details DateTypeDepartmentCare Team (Latest Contact Info)Apfhfivbupy40/04/2025amboo flowsheet [facility] [address] [place] [address] Nathan Pop DO [address] [facility] Shereen Armstrong, [facility] Social History Tobacco UseTypesPacks/DayYears UsedDateSmoking Tobacco: NeverSmokeless Tobacco: NeverAlcohol UseStandard Drinks/WeekCommentsNever0 (1 standard drink = 0.6 oz pure alcohol)caffeine: 1-2 cups per day, coffee and bzpR1856 Health Literacy AnswerDate RecordedHow often do you [...] week12/29/2024How often do you attend cheondoism or pentecostal services?Patient evwjnnag99/03/2025Do you belong to any clubs or organizations such as cheondoism groups, unions, [employer] or athletic leodan ups, or school groups?No12/29/2024How often do you attend meetings of the clubs or organizations you belong to?Patient hilqzmyq53/03/2025re you , , , , never , [...] RecordedPatient Health Questionnaire-2 Score0 07/30/2025[facility] - Occupational Stress QuestionnaireAnswerDate RecordedDo you feel stress - tense, restless, nervous, or anxious, or unable to sleep at night because yourmind is troubled all the time - these days?Only a jsrmuf8912/29/2024Exercise Vital SignAnswerDate Recorded On average, how many [...] to sleep or slept in [facility] (including now)?No09/19/2023Housing Stability Vital SignAnswerDate [...] the highest degree you have received?High school nenllshp03/29/2023 Estimated Date of UbxvcndaGiuuspflIiy63/03/2026ased on last menstrual period of 02/21/2025Sex and Gender InformationValueDate RecordedSex Assigned at BirthNot on fileLegal PbkFyquzf63/15/2023 7:18 PM EDTGender IdentityNot on file Sexual OrientationNot on 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 Not on fileNot on fileNot on filedocumented as of this encounter Plan of Treatment Not on file documented as of this encounter Visit Diagnoses Not on filedocumented in this encounter Care Teams Team MemberRelationshipSpecialtyStart DateEnd Date Eliceo Beltran DO [address] [facility] [address] [place] [address] PCP - GeneralFamily Medicine02/14/24 Eliceo Beltran DO [address] [facility] [address] [place] [address] PCP - Medical [employer]07/27/2412documented as of this encounter
--- OUTSIDE RECORDS SUMMARY | 2025-11-09 05:00 | XMS_ITS | Encounter Summary ---
Author Organization [facility] Address [address] [place] [address] Care Team Providers Care Naval Architect Specialist Name Role Phone Eliceo Beltran Primary Care Provider [phone] CharlottegeovaniEliceo kauffman Unavailable [phone] Encounter Details DateTypeDepartmentCare Team (Latest Contact Info)Bdczvuzblcq20/06/2025Clinisync Result Encounter [facility] Unsolicited Steph Keane, DEVYN [address] [facility] [place] [address] Social History Tobacco UseTypesPacks/DayYears UsedDateSmoking Tobacco: NeverSmokeless Tobacco: NeverAlcohol UseStandard Drinks/WeekCommentsNever0 (1 standard drink = 0.6 oz pure alcohol)caffeine: 1-2 cups per day, coffee and pweW1869 Health Literacy AnswerDate RecordedHow often do you [...] relatives?Once a week12/29/2024How often do you attend yazidi or yazdanism services?Patient kxureact43/03/2025Do you belong to any clubs or organizations such as yazidi groups, unions, [employer] or athletic leodan ups, or school groups?No12/29/2024How often do you attend meetings of the clubs or organizations you belong to?Patient bozahswx41/03/2025re you , , , , never , [...] Health Questionnaire-2 Score0 07/30/2025[facility] [place] [facility] - Occupational Stress QuestionnaireAnswerDate RecordedDo you feel stress - tense, restless, nervous, or anxious, or unable to sleep at night because yourmind is troubled all the time - these days?Only a skmkos2112/29/2024Exercise Vital SignAnswerDate Recorded On average, how many [...] steady place to sleep or slept in [facility] (including now)?No09/19/2023Housing Stability Vital SignAnswerDate RecordedIn [...] the highest degree you have received?High school ancbadkv94/29/2023 Estimated Date of OlrdsyzjFkqofkjjGei99/03/2026ased on last menstrual period of 02/21/2025Sex and Gender InformationValueDate RecordedSex Assigned at BirthNot on fileLegal GmzTnluik28/15/2023 7:18 PM EDTGender IdentityNot on file Sexual OrientationNot on 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 [place] [address] ? Ultrasound Report ? Signed ? Patient: DRISS GAMA Daniel ?MR#: [id number] ?? : 1995 ?Acct:[id number] ?? Age/Sex: 30 / F ?ADM Date: 10/31/25 ?? Loc: US ? Attending Dr: Steph Keane ? Ordering Physician: Steph Keane ?? Date of Service: 10/31/25 ?? Procedure(s): US OB BPP w non-stress ?? Accession Number(s): [id number] ? cc: Steph Keane; Yomaira BELTRAN ? [facility] ? [address] ? [place] [address] ? Patient Name: ?? DRISS Sanchez RADHASONAM ? MRN: [facility]:[id number] ? date: 1995 ?Sex: F ?? Assigned Patient Location: [facility] ?? Current Patient Location: ? Accession/Order Number: [id number] ?? Exam Date: 10/31/2025 ??10:08 ?Report Date: 10/31/2025 ??12:16 ? At the request of: ?? STEPH ??ELSA ? Procedure: ??US OB BPP w non-stress ? Ultrasound biophysical profile ? INDICATION: -induced hypertension ? COMPARISON: 10/23/2025 ? FINDINGS/ IMPRESSION: Cephalic position. ??8 out of 8 score biophysical ?? profile. ??LEONEL 10.6 cm. ?? heart 141 bpm ? Impression dictated by: Chu Amaya M.D. ??10/31/2025 12:16 PM ? Dictation Location: RADIO-PC-29 ? Electronically authenticated by: [id number] ??Y ?? Date: 10/31/2025 ??12:16 ? Dictated By: ?Chu Amaya M.D. ? Signed By: ?10/31/25 1219 ? DD/ ? TD/TT: ? Rag Cutting Machine Operator: Procedure Note Radiology, Radiologist, MD - 10/31/2025 [place] [address] Ultrasound Report Signed Patient: DRISS GAMA MMR#: [id number] : 1995Acct:[id number] Age/Sex: 30 / FADM Date: 10/31/25 Loc: US Attending Dr: Steph Keane Ordering Physician: Steph Keane Date of Service: 10/31/25 Procedure(s): US OB BPP w non-stress Accession Number(s): [id number] cc: Steph Keane; Yomaira BELTRAN The [place] [address] Patient Name: DRISS GAMA MRN: [facility]:[id number] date: 1995 Sex: F Assigned Patient [facility]: [facility] Current Patient Location: Accession/Order Number: [id number] Exam Date: 10/31/2025 10:08 Report Date: 10/31/2025 12:16 At the request of: STEPH KEANE Procedure: US OB BPP w non-stress Ultrasound biophysical profile INDICATION: -induced hypertension COMPARISON: 10/23/2025 FINDINGS/ IMPRESSION: Cephalic position. 8 out of 8 score biophysical profile. LEONEL 10.6 cm. heart 141 bpm Impression dictated by: Chu Amaya M.D. 10/31/2025 12:16 PM Dictation Location: [place] [address] Electronically authenticated by: [id number] Y Date: 2:16 Dictated By: Chu Amaya M.D. Signed By:10/31/25 1219 DD/ 1216 TD/TT: Rag Cutting Machine Operator: Authorizing ProviderResult TypeResult StatusSteph Keane NPCLINISYNC IMAGING Final Result documented in this encounter Visit Diagnoses Not on filedocumented in this encounter Care Teams Team MemberRelationshipSpecialtyStart DateEnd Date Eliceo Beltran DO [address] [place] [address] [facility] - [facility] Eliceo Beltran DO [address] [place] [address] PCP - Medical [facility]07/27/2412documented as of this encounter
--- OUTSIDE RECORDS SUMMARY | 2025-11-09 05:00 | XMS_ITS | Clinical Summary ---
Author Organization [facility] Address [address] [place] [address] Care Team Providers Care Operations Forester Name Role Phone Eliceo Beltran DO Primary Care Provider [phone] Eliceo Beltran DO Unavailable [phone] Allergies No known active allergies Medications MedicationSigDispense QuantityRefillsLast FilledStart DateEnd DateStatus metoprolol succinate XL (Toprol-XL) 25 MG 24 hr tablet Indications:Hypertension, unspecified typeTake 1 tablet by mouth daily 90 tablet 5Active Vit-Fe Fumarate-FA ( Vitamins) 28-0.8 MG tablet Indications:, unspecified gestational age ([facility]),Encounter for supervision of normal first in first trimester ([facility])Take 1 tablet by mouth Daily 30 tablet 110/6Active Alcohol Swabs (Alcohol Prep Pad) 70 % pads Indications:Gestational diabetes mellitus (GDM), antepartum, gestational diabetes method of control unspecified([facility]),Elevated glucose tolerance test Apply 1 Pad topically Daily Use four times daily to check FSBS. 150 each 5Active Blood Glucose Monitoring Suppl (D-Care Glucometer) w/Device kit Indications:Gestational diabetes mellitus (GDM), antepartum, gestational diabetes method of control unspecified([facility]),Elevated glucose tolerance test1 kit Daily Use four times daily to check FSBS. In the morning prior to breakfast & 1 hour after each meal for a total of 4times daily. 1 kit 506Active insulin glargine-yfgn (Semglee-yfgn) 100 UNIT/ML pen Inject 13 Units under the skin at tlihfar6309/15/2025tive labetalol (Normodyne) 200 MG tablet Indications:Gestational HypertensionTake 1 tablet (200 mg) by mouth in the morning and 1 tablet (200 mg) in the evening and 1 tablet (200 mg) before bedtime. 90 tablet 5Active azithromycin (Zithromax Z-Emre) 250 MG tablet Indications:Upper respiratory tract infection, unspecified typeAs directed 6 tablet 5Active labetalol (Normodyne) 200 MG tablet Indications:Gestational HypertensionTake 1 tablet (200 mg) by mouth in the morning and 1 tablet (200 mg) before bedtime. 60 tablet Discontinued(Reorder) Active Problems ProblemNoted DateDiagnosed DateH/O pre-eclampsia in prior , currently ([facility])10/29/2025H/O premature fxinwnbq86 weeks gestation of ([facility])10/14/2025Third trimester ([facility])10/14/2025 Xqiqvxmu10/29/3043Pqqsesujhzk90/26/2024Obesity (BMI 30-39.9)02/19/2024cquired equinus deformity of foot03/29/2023isplacement of cervical intervertebral disc without fdsfdisaey29/04/5640Uylqaeeznaod89/04/8186Fjvxkpbwjtnkr55/04/2023 Fleuptwxzhwpo22/04/7776Zczpxtcrnaru05/04/2023 Assessment & Plan (07/30/2025 4:00 PM EDT): Record Blood Pressures 2-4 times weekly and record. Return with readings at next appointment. Call with readings if sees significant changes Intractable migraine without aura and with status arswarvrxnp29/04/2023Migraines 03/29/2023hronic pelvic pain in ksqcml0603/29/2023ain in female genitalia on pvfwhiljspo55/04/2023ain on pmntmuugbf95/04/2023anic vocizlll36/04/2023 Patellofemoral disorders, left knee03/29/2023atellofemoral disorders, right knee03/29/2023osterior calcaneal ydppbomko75/04/2023Scapular dyskinesis 03/29/20237334Sdbmedrja88/04/2023Seasonal allergic rhinitis due to cvyeov4103/29/2023 Tachycardia, zworfqzzbq56/04/2023Tension pvagmlkv55/04/2023Vitamin B12 lillxqrzdh34/04/2023Vitamin D ucfcmkuwod65/04/2023hronic right shoulder pain 03/29/2023Estimated Date of VzughpgsYwswyqffDma23/03/2026ased on last menstrual period of 02/21/2025 Encounters DateTypeDepartmentCare QwyoDyakhalktwi25/13/2025linisync Result Encounter [facility] External Department Unsolicited Steph Keane NP 11/04/2025 2:10 PM ESTRoutine [facility] [place] [facility] [address] [place] [address] Nathan Pop, DO Third trimester ([facility]); 36 weeks gestation of ([facility])11/04/2025bstract [facility] [place] [facility] [address] [place] [address] Nathan Pop, DO 11/04/2025amboo flowsheet [facility] [place] [facility] [address] [place] [address] Nathan Pop, DO 11/02/2025Telephone [facility] [place] [facility] [address] [place] [address] Nathan Pop, DO 5Clinisync Result Encounter [facility]OMS External Department Unsolicited Steph Keane NP 10/29/2025 9:00 AM ESTRoutine [facility] [place] [facility] [address] [place] [address] Nathan Pop, DO Third trimester ([facility]); 35 weeks gestation of ([facility]); H/O pre-eclampsia in prior , currently ([facility]); H/O premature ofzxeqmn92/04/2025linisync Result Encounter [facility] External Department Unsolicited Nathan Pop, DO 10/29/2025Telephone [facility] [place] [facility] [address] [place] [phone] Candis Yanes LPN 10/29/2025amboo flowsheet [facility] [place] [facility] [address] [place] [address] Nathan Pop, DO 10/26/2025Telephone [facility] [place] [facility] [address] [place] [address] Rossy Davila MA 10/25/20259850Jigial98/29/2025linisync Result Encounter [facility] External Department Unsolicited Steph Keane, DEVYN 10/17/2025linisync Result Encounter [facility]OMS External Department Unsolicited Steph Keane, DEVYN 10/16/2025External Result Encounter [facility]OM[facility] External Department Unsolicited Nathan Pop, DO 10/16/2025linisync Result Encounter [facility] External Department Unsolicited Nathan Pop, DO 10/14/2025 3:30 PM ESTRoutine [facility] [place] [facility] [address] [place] [address] Nathan Pop, DO 33 weeks gestation of ([facility]); Third trimester ([facility])10/14/2025amboo flowsheet [facility] [place] [facility] [address] [place] [phone] Nathan Pop, DO 10/13/20253934Btzogp21/17/2025linisync Result Encounter [facility]OM[facility] External Department Unsolicited Nathan Pop, DO 10/11/2025linisync Result Encounter [facility]OMS External Department Unsolicited Nathan Pop, DO 10/09/2025bstract [facility] [place] [facility] [address] [place] [phone] Nathan Pop, DO 5Clinisync Result Encounter [facility]OM[facility] External Department Unsolicited Steph Keane, LEASING SALES CONSULTANT 10/01/2025Telephone [facility] [place] [facility] [address] [place] [phone] Nathan Pop, DO 09/30/2025 3:00 PM ESTRoutine [facility] [place] [facility] [address] [place] [address] Nathan Pop, DO Third trimester ([facility]); 31 weeks gestation of ([facility]); Pre-eclampsia in third trimester ([facility])09/30/2025amboo flowsheet [facility] [place] [facility] [address] [place] [address] Nathan Pop, DO 5Clinisync Result Encounter [facility]OM[facility] External Department Unsolicited Steph Keane, DEVYN 09/23/20258324Asrblw54/25/2025linisync Result Encounter [facility]OM[facility] External Department Unsolicited Steph Keane, LEASING SALES CONSULTANT 09/16/2025 3:20 PM EDTRoutine [facility] [place] [facility] [address] [place] [address] Nathan Pop, DO 29 weeks gestation of ([facility]); Third trimester ([facility]); Hypertension affecting , antepartum ([facility]); Gestational diabetes mellitus (GDM), antepartum, gestational diabetes method of control unspecified([facility])09/16/2025amboo flowsheet [facility] [place] [facility] [address] [place] [phone] Nathan Pop, 5Abstract [facility] [place] [facility] [address] [place] [address] Nathan Pop, DO 09/09/20252452Qrxtcf90/09/2025 3:50 PM EDTRoutine [facility] [place] [facility] [address] [place] [address] Steph Keane NP Hypertension affecting , antepartum ([facility]) (Primary Dx); 27 weeks gestation of ([facility]); Second trimester ([facility])09/03/2025linisync Result Encounter [facility]OM[facility] External Department Unsolicited Nathan Pop, DO 09/03/2025amboo flowsheet [facility] [place] [facility] [address] [place] [address] Steph Keane NP 09/02/20255682Ktmgzy04/04/2025linisync Result Encounter [facility]OM[facility] External Department Unsolicited Steph Keane NP 08/28/2025bstract [facility] [address] [place] [address] Eliceo Beltran DO 08/28/2025Telephone [facility] [place] [facility] [address] [place] [phone] Radha Rahman MA 08/27/2025 3:20 PM EDTRoutine [facility] [place] [facility] [address] [place] [address] Steph Keane NP 26 weeks gestation of ([facility]); Second trimester ([facility]); induced hypertension, antepartum ([facility]); Gestational diabetes mellitus (GDM) in second trimester, gestational diabetes method of control unspecified ([facility])08/27/2025linisync Result Encounter [facility]OM[facility] External Department Unsolicited Steph Keane NP 08/27/2025linisync Result Encounter NOMS External Department Unsolicited Steph Keane NP 08/27/2025amblaurie flowsheet [facility] [place] [facility] [address] [place] [address] Steph Keane, DEVYN 08/25/2025linisync Result Encounter NOMS External Department Unsolicited Provider, Generic External Data 08/20/2025bstract [facility] [place] [facility] [address] [place] [address] Nathan Pop, DO 08/20/2025Telephone [facility] [place] [facility] [address] [place] [address] Steph Keane, LEASING SALES CONSULTANT 08/17/2025bstract [facility] [address] [place] [address] Eliceo Beltran, DO 08/17/2025bstract [facility] [address] [address] [place] [address] Eliceo Beltran, DO 08/17/2025Telephone [facility] [place] [facility] [address] [place] [address] Nathan Pop, DO 08/13/2025bstract [facility] [place] [facility] [address] [place] [address] Nathan Pop, DO 08/12/2025 2:40 PM EDTRoutine [facility] [place] [facility] [address] [place] [address] Nathan Pop, DO 24 weeks gestation of ([facility]); Second trimester ([facility]); Elevated glucose tolerance test08/12/2025 2:00 PM EDTAncillary Procedure [facility] [place] [facility] [address] [place] [address] Encounter for follow-up ultrasound of anatomy ([facility])08/12/2025bstract [facility] [place] [facility] [address] [place] [address] KieshaNathan jarrell, DO 08/12/2025bstract [facility] [place] [facility] [address] [place] [address] [place] [phone] Nathan Pop, DO 08/12/2025[facility]phone [facility] [address] [facility] [address] [place] [address] Bill Gould LPN Qhnooba5608/12/2025bstract [facility] [address] [facility] [address] [place] [address] Eliceo Beltran DO from Last 3 Months Immunizations ImmunizationAdministration DatesNext DueDTP / HiB08/01/1996,1995, 1995DTaP, Xvixywtrein12/08/2000,12/29/1997HPV, Qjqqgjjfbmlg42/17/2014, 05/04/2014,2014Hep A, Adult09/11/2014,2014Hep B, Adolescent or Tdgkcxeid21/06/1996,1995,1995IPV05/03/2000Influenza, seasonal, injectable, preservative free09/11/2014MMR05/03/2000,08/01/1996Meningococcal HTX7X1004/03/2007OPV08/01/1996,1995,1995Tdap2014 Family History Medical HistoryRelationNameCommentsAnemiaFatherColon cancerFatherCancerMaternal GrandfatherbutchHypertensionMaternal GrandfatherbutchBreast cancerMaternal GrandmotherHypertensionMotherdarleneColon cancerPaternal GrandfatherRelationName StatusCommentsFatherDeceasedMaternal GrandfatherbutchMaternal GrandmotherMother darleneAlivePaternal GrandfatherPaternal GrandmotherAlive Social History Tobacco UseTypesPacks/DayYears UsedDateSmoking Tobacco: NeverSmokeless Tobacco: Never Tobacco Cessation:Counseling Given: Not Answered Alcohol UseStandard Drinks/WeekCommentsNever0 (1 standard drink = 0.6 oz pure alcohol)caffeine: 1-2 cups per day, coffee and wbzN4933 Health LiteracyAnswer Date RecordedHow often do you [...] week12/29/2024How often do you attend druze or mandaen services?Patient wdjcnsfo59/03/2025Do you belong to any clubs or organizations such as druze groups, unions, fraternal or athletic leodan ups, or school groups?No12/29/2024How often do you attend meetings of the clubs or organizations you belong to?Patient esxvotfp08/03/2025re you , , , , never , [...] Health Questionnaire-2 Score0 07/30/2025[facility] [place] [facility] Occupational Health - Occupational Stress QuestionnaireAnswerDate RecordedDo you feel stress - tense, restless, nervous, or anxious, or unable to sleep at night because yourmind is troubled all the time - these days?Only a dqnxfw6312/29/2024Exercise Vital SignAnswerDate Recorded On average, how many [...] Times Moved in the Last YearNot on file02/03/2025At any time in the past 12 months, were you homeless or living in a skilled nursing (including now)?No12/29/2024 EducationAnswerDate RecordedWhat is the highest level of school you have completed or the highest degree you have received?High school /29/2023 Estimated Date of SspfrnxoQgqyjlvtHht09/03/2026ased on last menstrual period of 02/21/2025Sex and Gender InformationValueDate RecordedSex Assigned at BirthNot on fileLegal SszTwtobq31/15/2023 7:18 PM EDTGender IdentityNot on file Sexual OrientationNot on 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 Not on fileNot on fileNot on file Last Filed Vital Signs Vital SignReadingTime TakenCommentsBlood Gstufuct288/8412 2:04 PM EST Glril504007/30/2025 3:36 PM XTKAnqukcnhlka47.2 ??C (97.1 ??F)07/30/2025 3:36 PM EDTRespiratory Eosv951512/23/2022 4:16 PM ESTOxygen Lxvprojqne34%07/30/2025 3:36 PM EDTInhaled Oxygen Concentration--Uuchqg69.6 kg (171 lb)11/04/2025 2:04 PM EST Wlclei460.5 cm (5' 2 )07/30/2025 3:36 PM EDTBody Mass Index31.2809 3:36 PM EDT Plan of Treatment Health MaintenanceDue DateLast DoneCommentsCOVID-19 Vaccine ( season) 2025Influenza Vaccine (#1)Pap Smear08/18/2027 08/18/2024, 08/15/2023, 06/20/2022, Additional history existsCervical Cancer Aumrppzao66/09/2028HPV/Xwkzzf71neumococcal Vaccine: Pediatrics (0 to 5 Years) and At-Risk Patients (6 to 64 Years)Aged OutNo longer eligible based on patient's age to complete this topic Procedures Procedure NamePriorityDate/TimeAssociated DiagnosisCommentsUS OB BPP W NON-LLZCHF15/ 2:10 PM EST POCT URINALYSIS QGNGIQZVChbfbib32/10/2025 2:14 PM EST 36 weeks gestation of ([facility]) US OB BPP W NON-SVWSYM1010/31/2025 12:16 PM EST POCT URINALYSIS LKZETYGYEaaqgso97/04/2025 9:38 AM EST Third trimester ([facility]) STREP GP B CULTURE+WUGZAuefvoe08/04/2025 9:28 AM EST US OB BPP W NON-APWDBK0710/24/2025 10:38 AM EST US OB BPP W NON-KOMELN3610/17/2025 9:22 AM EST URINE CULTURE - DLYTMoavpdo50/21/2025 1:30 PM EST [facility] UA (CLEAN/CATCH) BACCARAT DEALER/MICRO IF IND.Ubzdizd9710/16/2025 1:30 PM EST CULTURE, URINE, BXIQIJZQGCR33/21/2025 1:30 PM EST POCT URINALYSIS BSFBYVEPAugiipg09/19/2025 3:40 PM EST 33 weeks gestation of ([facility]) Third trimester ([facility]) CCF UXWOHbybpev59/17/2025 8:28 PM EST SRMCOH PROTHROMBIN TIME INR W/O TOMHVqxaxfp73/17/2025 8:28 PM EST ALL VTJLkaoivb73/17/2025 8:28 PM EST CCF OOFEvhnaze06/17/2025 8:28 PM EST [facility] TLKJkgpnue95/17/2025 8:28 PM EST ALL URIC WACVDxsgprt84/17/2025 8:28 PM EST [facility] OJBJLTETADMqmxtgr27/17/2025 8:28 PM EST ALL IROSwxkkwh79/17/2025 8:28 PM EST ALL CBC WITH AUTO YUGYHdcqiaj48/17/2025 8:28 PM EST [facility] URINE T PROTEIN CREAT GTSVLXcjxobq82/17/2025 7:05 PM EST [facility] UA (CLEAN/CATCH) BACCARAT DEALER/MICRO IF IND.Cfruwpw6610/12/2025 7:05 PM EST US OB BPP W NON-QWBFAL0210/11/2025 1:46 PM EST US OB BPP W NON-QYFSOC7410/03/2025 11:36 AM EST POCT URINALYSIS FFJGQBNJLuxvutq08/05/2025 3:13 PM EST Third trimester ([facility]) US OB BPP W NON-XDOOSW2409/26/2025 2:50 PM EDT US OB BPP W NON-JMRMSH1209/19/2025 12:17 PM EDT POCT URINALYSIS XNRODZFHNswekks92/22/2025 4:09 PM EDT 29 weeks gestation of ([facility]) Third trimester ([facility]) ALL CBC WITH AUTO DFJWNolzjoj99/09/2025 5:15 PM EDT MHPT XOPIWFCBTJGqqlncp84/09/2025 5:15 PM EDT CCF BBREPtijuuy23/09/2025 5:15 PM EDT SRMCOH PROTHROMBIN TIME INR W/O KSMWFeccfyi06/09/2025 5:15 PM EDT CCF FSRYrkdcvd99/09/2025 5:15 PM EDT CCF GXWHmjands03/09/2025 5:15 PM EDT ALL URIC SNXLXxbilhb35/09/2025 5:15 PM EDT TB[facility] ZAXTJHXTTPKhhtvhj45/09/2025 5:15 PM EDT ALL XRBLcrdmjn02/09/2025 5:15 PM EDT [facility] URINE T PROTEIN CREAT WFRVOAjhmuqb67/09/2025 5:05 PM EDT POCT URINALYSIS QTASAQYZHngywpn74/09/2025 4:26 PM EDT 27 weeks gestation of ([facility]) [facility] TOTAL PROTEIN 24 HOUR KATVZTgqjibu24/04/2025 8:00 AM EDT US OB BPP W NON-FDJCGX1608/27/2025 6:02 PM EDT [facility] URINE T PROTEIN CREAT PACUIXkzzknl64/02/2025 5:50 PM EDT CCF SGEXvvuesp56/02/2025 5:00 PM EDT CCF KOFPJvetbxv38/02/2025 5:00 PM EDT SRM[facility] PROTHROMBIN TIME INR W/O EIWSNmiejse46/02/2025 5:00 PM EDT ALL KFENmhetng92/02/2025 5:00 PM EDT CCF PCRBqbzgit69/02/2025 5:00 PM EDT ALL URIC MBEQUprlmhw89/02/2025 5:00 PM EDT TBH QWXSOWPHBHZkpbepr91/02/2025 5:00 PM EDT ALL PZXJouabfq57/02/2025 5:00 PM EDT ALL CBC WITH AUTO USMGVhqmvaz06/02/2025 5:00 PM EDT POCT URINALYSIS CZLFNHLWHylnjzk14/02/2025 3:53 PM EDT 26 weeks gestation of ([facility]) URINE CULTURE, JWSVAUYBkircxb84/30/2025 8:10 AM EDT POCT URINALYSIS GOFXTMLSAccisvk49/17/2025 2:39 PM EDT 24 weeks gestation of ([facility]) Second trimester ([facility]) US OB LIMITED 1+ FEXOJFOSuwfxbd52/17/2025 2:22 PM EDT Encounter for follow-up ultrasound of anatomy ([facility]) PAP BEIJDYtqrpvb42/23/2024 12:00 AM EDTTHINPREP PAP AND HPV MRNA E6/E7 W/RFL HPV 16,18/58Citisea55/09/2023 4:00 PM EDT Well woman exam with routine gynecological exam from Last 3 Months or Most Recently Relevant to Health Maintenance Results * US OB BPP W NON-STRESS (11/07/2025 2:10 PM EST) Only the most recent of9 resultswithin the time period is included. Anatomical RegionLateralityModalityOtherSpecimen (Source)Anatomical Location / LateralityCollection Method / VolumeCollection TimeReceived Time11/07/2025 2:10 PM EST Narrative 11/07/2025 2:12 PM EST [facility] [place] [facility] ?[address] ? [place] [address] ? Ultrasound Report ? Signed ? Patient: MCCONEGLY,DRISS M ?MR#: [id number] ?? : 1995 ?Acct:[id number] ?? Age/Sex: 30 / F ?ADM Date: 12/13/25 ?? Loc: US ? Attending Dr: Steph Keane ? Ordering Physician: Steph Keane ?? Date of Service: 11/07/25 ?? Procedure(s): US OB BPP w non-stress ?? Accession Number(s): [id number] ? cc: Steph Keane; Yomaira BELTRAN ? [facility] ? [address] ? [place] [address] ? Patient Name: ?? DRISS GAMA ? MRN: [facility]:[id number] ? date: 1995 ?Sex: F ?? Assigned Patient Location: ?? Current Patient Location: ? Accession/Order Number: [id number] ?? Exam Date: 11/07/2025 ??10:09 ?Report Date: [...] non-stress ?? IMPRESSION: ? Biophysical profile score: 8/8 ? Impression dictated by: Will Faria M.D. ??11/07/2025 2:10 PM ? Dictation Location: RADIO-PC-17 ? Electronically authenticated by: [id number] ??Y ?? Date: 11/07/2025 ??14:10 ? Dictated By: ?Will Faria M.D. ? Signed By: ?12/13/25 1412 ? DD/DT: // 1410 ? TD/TT: ? Tack Puller Machine: Procedure Note Radiology, Radiologist, - 11/07/2025 [place] [address] Ultrasound Report Signed Patient: DRISS GAMA MMR#: [id number] : 1995Acct:[id number] Age/Sex: 30 / FADM Date: 11/07/25 Loc: US Attending Dr: Steph Keane Ordering Physician: Steph Keane Date of Service: 11/07/25 Procedure(s): US OB BPP w non-stress Accession Number(s): [id number] cc: Steph Keane; Yomaira BELTRAN [facility] [place] [id number] Patient Name: DRISS GAMA MRN: [facility]:[id number] date: 1995 Sex: F Assigned Patient Location: US Current Patient Location: Accession/Order Number: [id number] Exam Date: 11/07/2025 10:09 Report Date: 11/07/2025 [...] Faria M.D. 11/07/2025 2:10 PM Dictation Location: [employer] Electronically authenticated by: [id number] Y Date: 4:10 Dictated By: Will Faria M.D. Signed By:11/07/25 1412 DD/ 141 TD/TT: Tack Puller Machine: Authorizing ProviderResult TypeResult StatusSteph Keane NPCLINISYNC IMAGING Final Result * POCT urinalysis dipstick manually resulted (11/04/2025 2:14 PM EST) Only the most recent of8 resultswithin the time period is included. ComponentValueRef [...] Location / LateralityCollection Method / VolumeCollection TimeReceived IxpwKrbus53/10/2025 2:14 PM EST Narrative Authorizing ProviderResult TypeResult StatusNathan Pop DOPOINT OF CARE TEST ENTER/EDIT ORDERABLESFinal Result * STREP GP B CULTURE+RFLX (10/29/2025 9:28 [...] is noted.TBHSTREP GP B CULTURE+RFLX Performed at: [facility] GP B CULTURE+[id number] [place], [place] [id number] GP B CULTURE+RFLXLab Director: Cm Sandoval PhD, Phone: [phone] (Source)Anatomical Location / Laterality Collection Method / VolumeCollection TimeReceived Time10/29/2025 9:28 AM EST 10/29/2025 12:08 PM EST Narrative [facility] - 11/02/2025 4:10 PM EST Authorizing ProviderResult TypeResult StatusCorey Kiesha DOLAB BLOOD ORDERABLES Final ResultPerforming OrganizationAddressCity/State/ZIP CodePhone Number CLINJAMIE [facility] * URINE CULTURE - [place] (10/16/2025 1:30 PM EST)ComponentValueRef RangeTest MethodAnalysis TimePerformed AtPathologist SignatureURINE CULTURE - FR ??Urine Culture - [facility] SEEFRMC [facility] RESULT^[facility] RESULT TBHURINE CULTURE - FRMCSEEN SEE SCANNED REPORT, NORMAL^SEE SCANNED REPORT, NORMALTBHSpecimen (Source)Anatomical Location / LateralityCollection Method / VolumeCollection TimeReceived Time10/16/2025 1:30 PM EST10/16/2025 1:44 PM EST Narrative [facility] - 10/18/2025 5:40 PM EST Authorizing ProviderResult TypeResult StatusCorey Kiesha DOLAB BLOOD ORDERABLES Final ResultPerforming OrganizationAddressCity/State/ZIP CodePhone Number [facility] * (ABNORMAL) [facility] UA (CLEAN/CATCH) BACCARAT DEALER/MICRO IF IND. (10/16/2025 1:30 PM EST) Only [...] Performing OrganizationAddressCity/State/ZIP CodePhone Number [facility] * Urine culture (10/16/2025 1:30 PM EST)ComponentValueRef RangeTest Method Analysis TimePerformed AtPathologist SignatureFR NOTE?20,000 colonies/ml mixed ?bacterial skin contaminants ?2 Days 10/18/2025 10:10 AM [facility] CtrSpecimen (Source)Anatomical Location / LateralityCollection Method / VolumeCollection TimeReceived Time Clean-Voided Midstream (Clean Void Midstream)10/16/2025 1:30 PM EST10/16/2025 4:19 PM EST Narrative [facility] - 10/18/2025 10:10 AM EST Diagnosis: HIGH BLOOD PRESSURE Comment: Authorizing ProviderResult TypeResult StatusCorey Kiesha DOLAB MICROBIOLOGY - GENERAL ORDERABLESFinal ResultPerforming OrganizationAddressty/[facility] Phone Number [facility] [address] [place] [address], [facility] [address] [place] [address] * [facility] CREATININE (10/12/2025 8:28 PM EST) Only the most recent of3 resultswithin the time period is included. ComponentValueRef RangeTest MethodAnalysis TimePerformed AtPathologist Signature CREATININE0.740.55 - 1.02 mg/dLTBHTBH EGFR-AF BARBADIAN>60>=60 mL/min/1.73m 2TBH TBH EGFR-NON AF BARBADIAN>60>=60 mL/min/1.73m 2TBHSpecimen (Source)Anatomical Location / LateralityCollection Method / VolumeCollection TimeReceived Time 10/12/2025 8:28 PM EST10/12/2025 8:39 PM EST Narrative CLINISYNC - 10/12/2025 8:59 PM EST Authorizing ProviderResult TypeResult StatusCorey Kiesha DOCLINISYNCFinal Result Performing OrganizationAddressty/State/ZIP CodePhone Number CLINISYNC TB * SRMCOH PROTHROMBIN TIME INR W/O COUM [...] Kiesha DOCLINISYNCFinal Result Performing OrganizationAddressCity/State/ZIP CodePhone Number [facility] * [facility] AST (10/12/2025 8:28 PM EST) Only the most recent of3 resultswithin the time period is included. ComponentValueRef RangeTest MethodAnalysis TimePerformed AtPathologist Signature ASPARTATE AMINO [id number] - 37 U/LTBHSpecimen (Source)Anatomical Location / LateralityCollection Method / VolumeCollection TimeReceived Time10/12/2025 8:28 PM EST10/12/2025 8:39 PM EST Narrative CLINISYNC - 10/12/2025 8:59 PM EST Authorizing ProviderResult TypeResult StatusCorey Kiesha DOCLINISYNCFinal Result Performing OrganizationAddressCity/State/ZIP CodePhone Number [facility] * [facility] APTT (10/12/2025 8:28 PM EST) [...] DOCLINISYNCFinal Result Performing OrganizationAddressCity/State/ZIP CodePhone Number CLINISYNC [facility] * CCF ALT (10/12/2025 8:28 PM EST) Only the most recent of3 resultswithin the time period is included. ComponentValueRef RangeTest MethodAnalysis TimePerformed AtPathologist Signature ALANINE [id number] - 59 U/LTBHSpecimen (Source)Anatomical Location / LateralityCollection [...] CodePhone Number CLINISYNC TBH * ALL LDH (10/12/2025 8:28 PM EST) Only the most recent of2 resultswithin the time period is included. ComponentValueRef RangeTest MethodAnalysis TimePerformed AtPathologist Signature LACTATE [id number] - 234 U/LTBHSpecimen (Source)Anatomical Location / LateralityCollection [...] - 35.2 g/dLTBHTBH RDW13.211.0 - 15.0 %TBHTBH [id number] - 450 10 3/uLTBHTBH MPV9.69.5 - 13.5 [...] Kiesha DOCLINISYNCFinal Result Performing OrganizationAddressCity/State/ZIP CodePhone Number [place] [facility] * ALL BUN (10/12/2025 8:28 PM EST) Only the most recent of3 resultswithin the time period is included. ComponentValueRef RangeTest MethodAnalysis TimePerformed AtPathologist Signature BLOOD UREA YSDWSKFJ24.07.0 - 18.0 mg/dLTBHSpecimen (Source)Anatomical Location / LateralityCollection Method / VolumeCollection TimeReceived Time10/12/2025 8:28 PM EST10/12/2025 8:39 PM EST Narrative CLINISYNC - 10/12/2025 8:59 PM EST Authorizing ProviderResult TypeResult StatusCorey Kiesha DOCLINISYNCFinal Result Performing OrganizationAddressCity/State/ZIP CodePhone Number [place] [facility] * (ABNORMAL) TBH URINE T PROTEIN CREAT RATIO (10/12/2025 7:05 PM EST) Only the most recent of3 resultswithin the time period is included. ComponentValueRef RangeTest MethodAnalysis TimePerformed AtPathologist Signature TOTAL PROTEIN URINE YTQXBU55.5(H)<=11.9 mg/dLTBHCREATININE URINE LXYHYI69.21 20.00 - 300.00 mg/dLTBHPROTEIN CREATININE RATIO URINE0.16TBHSpecimen (Source) Anatomical Location / LateralityCollection Method / VolumeCollection Time Received Time10/12/2025 7:05 PM EST10/12/2025 10:30 PM EST Narrative CLINISYNC - 10/12/2025 10:40 PM EST Authorizing ProviderResult TypeResult StatusCorey Kiesha DOCLINISYNCFinal Result Performing OrganizationAddressCity/State/ZIP CodePhone Number [place] [facility] * (ABNORMAL) MHPT FIBRINOGEN (09/03/2025 5:15 PM EDT)ComponentValueRef RangeTest MethodAnalysis TimePerformed AtPathologist FcharhxstAZGSTZTZAU174(H)200 - 400 mg/dLTBHSpecimen (Source)Anatomical Location / LateralityCollection Method / VolumeCollection TimeReceived Time09/03/2025 5:15 PM EDT1 5:21 PM EDT Narrative CLINISYNC - 09/03/2025 5:45 PM EDT Authorizing ProviderResult TypeResult StatusCorey Kiesha DOCLINISYNCFinal Result Performing OrganizationAddressCity/State/ZIP CodePhone Number JENNIFER CRUZ * (ABNORMAL) TBH TOTAL PROTEIN 24 HOUR URINE (08/29/2025 8:00 AM EDT)Component ValueRef RangeTest MethodAnalysis TimePerformed AtPathologist SignatureTOTAL PROTEIN URINE BGSMEM86.6(H)<=11.9 mg/dLTBHTOTAL VOLUME 24 HOUR LDAKN736oY/24hr TBHTBH TOTAL PROTEIN 24 HOUR FNYGU975.6<=149.1 mg/24hrTBHSpecimen (Source) Anatomical Location / LateralityCollection Method / VolumeCollection Time Received Time08/29/2025 8:00 AM EDT1 10:35 AM EDT Narrative CLINISYWY - 08/29/2025 12:08 PM EDT Authorizing ProviderResult TypeResult StatusGeneric External Data Provider CLINISYNCFinal ResultPerforming OrganizationAddressCity/State/ZIP CodePhone Number JENNIFER CRUZ * URINE CULTURE, ROUTINE (08/25/2025 8:10 AM EDT)ComponentValueRef RangeTest MethodAnalysis TimePerformed AtPathologist SignatureURINE CULTURE, ROUTINE ??Urine Culture, Routine TBHURINE CULTURE, ROUTINEMixed urogenital floraTBHURINE CULTURE, WTYFBBS76,000- 50,000 colony forming units per mLTBHURINE CULTURE, ROUTINEPerformed at: [facility]Formerly [facility] HospitalTBHURINE CULTURE, [id number] [place], [place] [id number] URINE CULTURE, ROUTINELab Director: Cm Sandoval PhD, Phone: [phone] Specimen (Source)Anatomical Location / LateralityCollection Method / Volume Collection TimeReceived Time08/25/2025 8:10 AM EDT08/25/2025 8:30 AM EDT Narrative CLINISYWY - 08/26/2025 10:07 PM EDT Authorizing ProviderResult TypeResult StatusGeneric External Data ProviderLAB BLOOD ORDERABLESFinal ResultPerforming OrganizationAddressCity/State/ZIP Code Phone Number JENNIFER CRUZ * US OB limited 1+ fetuses (08/12/2025 [...] Alas MD Authorizing ProviderResult TypeResult StatusNathan Pop [facility] OB US PROCEDURES Final Result * Pap Smear (08/18/2024 12:00 AM EDT)Specimen (Source)Anatomical Location / LateralityCollection Method / VolumeCollection TimeReceived TimeSwabCervical swab / Unknown Narrative Authorizing ProviderResult TypeResult StatusFastephono Nurse [facility] ObLAB CYTOLOGY ORDERABLESFinal ResultPerforming OrganizationAddressCity/State/ZIP CodePhone Number EXTERNAL LAB * THINPREP PAP AND HPV MRNA E6/E7 W/RFL HPV 16,18/45 (09/03/2023 4:00 PM EDT) Narrative Authorizing ProviderResult TypeResult StatusZenobia Gutierrez PALAB BLOOD ORDERABLES Final ResultPerforming OrganizationAddressCity/State/ZIP CodePhone Number EXTERNAL LAB from Last 3 Months or Most Recently Relevant to Health Maintenance Insurance Care Teams Team MemberRelationshipSpecialtyStart DateEnd Date Eliceo Beltran DO [address] [facility] [address] [place] [address] PCP - GeneralFamily Medicine02/14/24 Eliceo Beltran DO [address] [facility] [address] [place] [address] PCP - Medical [place] [employer]07/27/2412
[2025-11-09] MEDS: 0.9 % SODIUM CHLORIDE 1,000 ML 125 ML IV (05:50)
[2025-11-09] MEDS: OXYTOCIN/0.9 % SODIUM CHLORIDE 10 UNITS/500 ML PLAST..BAG 6 UNIT IV (05:54)
[2025-11-09 07:15] LABS: Hematocrit 36.7 % (36.0-48.0); Hemoglobin 12.5 g/dL (12.0-16.0); Mean Corpuscular HGB Conc 34.1 g/dL (29.9-35.2); Mean Corpuscular Hemoglobin 30.5 pg (26.7-34.0); Mean Corpuscular Volume 89.5 fL (81.0-99.0); Platelet Count 272 10^3/uL (150-450); Red Blood Count 4.10 10^6/uL (4.20-5.40); White Blood Count 12.7 10^3/uL (4.0-11.0)
[2025-11-09] MEDS: ROPIVACAINE HCL/PF 400 MG/200 ML PREMIX 10 MG EPIDURAL (09:08)
[2025-11-09] MEDS: 0.9 % SODIUM CHLORIDE 1,000 ML 1000 ML IV (09:09)
[2025-11-09 10:17] LABS: Cannabinoid Screen Urine NEGATIVE (NEGATIVE); Methamphetamines Screen Urine NEGATIVE (NEGATIVE); Tricyclic Antidepressant Urine NEGATIVE (NEGATIVE)
[2025-11-09] MEDS: LABETALOL HCL 100 MG TABLET 200 MG PO ×2 (14:30→22:56)
[2025-11-09] MEDS: OXYTOCIN/0.9 % SODIUM CHLORIDE 20 UNITS/1,000 ML PLAST..BAG 999 UNIT IV (17:17)
--- NOTE | 2025-11-09 17:26 | PM.OBPRCVD ---
Procedure Intrapartal events: None Induction method: per pitocin protocol Delivery augmentation: rupture of membranes and pitocin Delivery monitor: external FHT and external uterine Route of delivery: L&D Laceration Description: perineal - 1st degree Delivery repair: Vicryl Estimated blood loss (mL): 50 Anesthesia type: Epidural Disposition: floor Delivery date: 11/09/25 Gender: male presentation: vertex Placental delivery description: Spontaneous cord description: 3 Vessels
[2025-11-09] MEDS: BENZOCAINE/MENTHOL 85 GRAM SPRAY BOTTLE 1 APPLIC TOPICAL (18:17)
[2025-11-09] MEDS: IBUPROFEN 600 MG TABLET PO (18:17)
[2025-11-09] MEDS: GLYCERIN/WITCH HAZEL PADS 1 PAD TOPICAL (18:17)
[2025-11-09] MEDS: ACETAMINOPHEN 325 MG TABLET 650 MG PO (18:17)
[2025-11-10] MEDS: ACETAMINOPHEN 325 MG TABLET 650 MG PO ×2 (00:40→23:41)
[2025-11-10] MEDS: IBUPROFEN 600 MG TABLET PO ×4 (00:42→21:58)
[2025-11-10 06:13] LABS: Hematocrit 33.1 % (36.0-48.0); Hemoglobin 11.1 g/dL (12.0-16.0); Immature Granulocytes Abs Auto 0.21 10^3/uL (0.00-0.03); Immature Granulocytes Pct Auto 1.6 % (0.0-0.5); Lymphocytes Absolute Auto 2.5 10^3/uL (1.2-3.8); Mean Corpuscular HGB Conc 33.5 g/dL (29.9-35.2); Mean Corpuscular Hemoglobin 30.1 pg (26.7-34.0); Mean Corpuscular Volume 89.7 fL (81.0-99.0); Platelet Count 252 10^3/uL (150-450); Red Blood Count 3.69 10^6/uL (4.20-5.40); White Blood Count 13.5 10^3/uL (4.0-11.0)
[2025-11-10 06:33] VITALS: BP 118/63; PULSE 95
[2025-11-10 06:36] VITALS: BP 118/63; PULSE 95
[2025-11-10] MEDS: LABETALOL HCL 100 MG TABLET 200 MG PO ×3 (06:37→21:55)
--- NOTE | 2025-11-10 08:41 | P.OBPN_ITS ---
OB - PN: Subj Subjective Patient comments: no complaints and pain well controlled [place] status: doing well Exam Constitutional Vital Signs, click to edit/add: Last Vital Signs Temp 97.9 F 11/09/25 22:58 Pulse 95 H 11/10/25 06:36 Resp 16 11/09/25 22:58 BP 118/63 11/10/25 06:36 O2 Del Method Room Air 11/09/25 22:58 Documenting provider has reviewed patient's vital signs: yes Common normals: no apparent distress Respiratory Common normals: normal respiratory effort and clear to auscultation bilaterally Cardio Common normals: regular rate and regular rhythm GI Common normals: Normal to inspection, nondistended, normoactive bowel sounds present Extremity Common normals: no clubbing, cyanosis or edema and no calf tenderness Results Labs Labs: Short CBC 11/10/25 Range/Units 05:55 WBC 13.5 H (4.0-11.0) 10^3/uL Hgb 11.1 L (12.0-16.0) g/dL Hct 33.1 L (36.0-48.0) % Plt Count 252 (150-450) 10^3/uL Urinary Catheter Management Urinary Catheter Management Urethral: Cath placed during this visit: yes, but has since been removed by the nurse Insertion date: 11/09/25 Insertion time: 10:01 Removal date: 11/09/25 Removal time: 16:54 OB - PN: A/P Plan - Vaginal Delivery day: 1 Plan: routine care Time Spent with Patient Time: Total time spent is greater than 50% in coordination of care (as documented) at patient's floor/unit and/or counseling patient: Total time spent with greater than 50% in coordination of care (as documented) at patient's floor/unit and/or counseling patient: less than 15 minutes
[2025-11-10 08:50] VITALS: BP 128/63; PULSE 87; TEMP 36.6
[2025-11-10 16:24] VITALS: BP 133/80; PULSE 83
[2025-11-10] MEDS: DOCUSATE SODIUM 100 MG CAPSULE PO (21:54)
[2025-11-10 21:55] VITALS: BP 131/71; PULSE 78
[2025-11-10 23:36] VITALS: BP 132/75; PULSE 83; TEMP 37.1
[2025-11-11 06:30] VITALS: BP 133/81; PULSE 85
[2025-11-11] MEDS: LABETALOL HCL 100 MG TABLET 200 MG PO (06:31)
[2025-11-11] MEDS: IBUPROFEN 600 MG TABLET PO (06:31)
--- NOTE | 2025-11-11 08:04 | PM.OBPN ---
OB - PN: Subj Subjective Patient comments: no complaints [place] status: doing well feeding status: breast and bottle feeding Exam Constitutional Vital Signs, click to edit/add: Last Vital Signs Temp 98.7 F 11/10/25 23:36 Pulse 85 11/11/25 06:30 Resp 16 11/10/25 23:36 BP 133/81 11/11/25 06:30 O2 Del Method Room Air 11/10/25 23:36 Documenting provider has reviewed patient's vital signs: yes Common normals: no apparent distress General appearance: cooperative Orientation/consciousness: Yes awake, Yes oriented to person, Yes oriented to place and Yes oriented to time HENMT Common normals: normocephalic Eye Common normals: EOMs intact bilaterally General eye: normal appearance of both eyes Visual acuity: acuity normal Neck & C-Spine Common normals: full ROM and no lymphadenopathy General: normal visual inspection Lymph Lymphatic: no lymphadenopathy noted Chest Common normals: inspection of chest normal Respiratory Common normals: normal respiratory effort Effort & inspection: able to speak in complete sentences Auscultation: clear to auscultation bilaterally Cardio Common normals: regular rate and regular rhythm Rate: regular rate Rhythm: regular rhythm GI Common normals: Normal to inspection, nondistended, normoactive bowel sounds present Inspection: normal to inspection Auscultation: normoactive bowel sounds Palpation: soft Common normals: no CVA tenderness Back & Pelvis Common normals: no CVA tenderness Extremity Common normals: normal to inspection Neuro Common normals: oriented x3 Sensorium/orientation: awake, alert, oriented to person, oriented to place and oriented to time Psych Common normals: mental status grossly normal, thought process normal, cooperative, affect normal, speech normal, activity/motor behavior normal, denies hallucinations, denies homicidal ideation and denies suicidal ideation Appearance: grossly normal Attitude: calm Speech: normal speech Thought process: normal thought process Thought content: normal thought content Urinary Catheter Management Urinary Catheter Management Urethral: Cath placed during this visit: yes, but has since been removed by the nurse Insertion date: 11/09/25 Insertion time: 10:01 Removal date: 11/09/25 Removal time: 16:54 OB - PN: A/P Plan - Vaginal Delivery day: 2 Plan: discharge home Time Spent with Patient Time: Total time spent is greater than 50% in coordination of care (as documented) at patient's floor/unit and/or counseling patient: Total time spent with greater than 50% in coordination of care (as documented) at patient's floor/unit and/or counseling patient: less than 15 minutes
[2025-11-11 11:07] VITALS: BP 131/73; PULSE 85; TEMP 35.8
[2025-11-11 11:35] VITALS: BP 131/73; PULSE 85; TEMP 36.3
--- NOTE | 2025-11-11 11:55 | PC.NURSE ---
Discussed LPI and behaviors. Discussed 7% weight loss for baby and poor to fair feeding effort. Parents decide no circ for today. will follow up with circ and PCP. Shown Neotech shield and use. Demo of set up, latching baby and encouraging infant to suck. Baby takes 6ml. Parents pleased with effort. 1130 Parents set up and feed infant independently takes 12ml with neotech shield. Mom given demo of pump and it's use. independently pumps after feed. Plan to feed infant every 2-2.5 hours, using shield and up to 15 ml of Sim sensitive formula. Mom to pump after feeds to encourage stimulation and production. Aware to decrease amount of formula as amount of breast milk increases Parents feelm comfortable with plan and states will be able to maintain same until follow up on 11/13/2025.
== END 2025-11-11 14:27 | disposition home or self-care (01) | DRG 807 ==
PROVIDERS: Admitting Provider Obstetrics & Gynecology; Family Provider Family Medicine; PCP Family Medicine; Visit Provider Obstetrics & Gynecology
DX: O24.424 Gestational diabetes mellitus in childbirth, insulin controlled (principal); Z37.0 Single live birth; O14.94 Unspecified pre-eclampsia, complicating childbirth; O16.4 Unspecified maternal hypertension, complicating childbirth; O70.0 First degree perineal laceration during delivery; Z3A.37 37 weeks gestation of pregnancy; Z90.49 Acquired absence of other specified parts of digestive tract; Z87.59 Personal history of other complications of pregnancy, childbirth and the puerperium
CPT/HCPCS: 36415; 59050; 59410; 80307; 82948; 85025; 85027; 86850; 86900; 86901; J2795

== ENCOUNTER 2025-11-13 08:05 | Outpatient (OUT) | payer OTHER, SELFPAY ==
--- OUTSIDE RECORDS SUMMARY | 2025-11-03 14:30 | XMS_ITS | Encounter Summary ---
Author Organization [facility] [employer] [facility] tem Address [facility] [id number] [address] [place] [address] Care Team Providers Care Wire Bender Name Role Phone Cruz Rodríguez MD Primary Care Provider [phone] Reason for Visit * ReasonCommentsGestational DiabetesHypertension Encounter Details DateTypeDepartmentCare Team (Latest Contact Info)Govnvvoqtgz00/09/2025 2:30 PM ESTOffice Visit Maternal- Medicine at [facility] [address] [place] [phone] Kayleigh Rizzo PALuis Angel [address] [address] Insulin controlled gestational diabetes mellitus (GDM) in [...] or more drinks on one occasion?Never10/16/2025ChildcareAnswer Date NurryhewOqrmfbqnyQccifyc15/13/2019EmploymentAnswerDate RecordedEmployment Ngcboog5405/08/2019Hunger ScreeningAnswerDate RecordedWithin the past 12 months we worried whether our food would run out before we got money to buy more.Never True09/10/2025Within the past 12 months the food we bought just didn't last and we didn't have money to get more.Never True09/10/2025Purpose - LifeAnswerDate RecordedPurpose and direction in mmbzAkyhjjw55/11/2021Estimated Date of CttktvwlYvpisryjZjd17/03/2026Based on last menstrual period of 02/21/2025 (Exact Date)Sex and Gender InformationValueDate RecordedSex Assigned at BirthNot on fileLegal LwjKzdqhm61/07/2019 2:55 PM ESTGender IdentityNot on fileSexual OrientationNot on filedocumented as of this encounter Last Filed Vital Signs Vital SignReadingTime TakenCommentsBlood Rheypfyx470/8511/03/2025 2:41 PM EST Zliav20268/09/2025 2:41 PM ESTTemperature--Respiratory Rate--Oxygen Saturation-- Inhaled Oxygen Concentration--Esdgno36.1 kg (172 lb 3.2 oz)11/03/2025 2:41 PM PWYVqqwas390.5 cm (5' 2.01 )11/03/2025 2:41 PM ESTBody Mass Index31.4911/03/2025 2:41 PM ESTdocumented in this encounter Functional Status * BPAnswerDate of RoitkpuuvbLehpaq810/8512 2:41 PM Kameron Irvin * PulseAnswerDate of XvtulmgskdOidffn60150 2:41 PM Kameron Irvin * HeightAnswerDate of KlldxdlexlHietjb85.0112 2:41 PM Kameron Irvin * WeightAnswerDate of IjfffoziwcWqqsud7409.212 2:41 PM Kameron Irvin * BEE (kcal)AnswerDate of MifuqprteoKfvdox839458/09/2025 2:41 PM Kameron Irvin * BSA (Calculated - sq m)AnswerDate of AssessmentAuthor1.8512 2:41 PM Kameron Irvin * BMI (Calculated)AnswerDate of QtxlebbfhbMaqdgo83.512 2:41 PM Kameron Irvin * Weight in (lb) to have BMI = 25AnswerDate of IzfjplwexcIujuzv768.412 2:41 PM Kameron Irvin * BPAnswerDate of IupjlbomyvPdjrjf466/8512 2:41 PM Kameron Irvin * PulseAnswerDate of FnjprcznpzPtqjms94063 2:41 PM Kameron Irvin * HeightAnswerDate of MdygguozntAkhxdr14.0112 2:41 PM Kameron Irvin * WeightAnswerDate of UuecyofnikNsfngl8360.212 2:41 PM Kameron Irvin * BEE (kcal)AnswerDate of YufkvqlqfkLpvepn830876 2:41 PM Kameron Irvin * BSA (Calculated - sq m)AnswerDate of AssessmentAuthor1.8512 2:41 PM Kameron Irvin * BMI (Calculated)AnswerDate of VgrbmgxqzjRtpkec09.512 2:41 PM Kameron Irvin * Weight in (lb) to have BMI = 25AnswerDate of VktqiwabfnYvfpgr784.412 2:41 PM Kameron Irvin documented as of this encounter Mental Status * BPAnswerEntry HkkvOimlce173/8511/03/2025 2:41 PM Kameron Irvin * PulseAnswerEntry IuxuYxjmvk89485/09/2025 2:41 PM Kameron Irvin documented in this encounter Progress Notes * Kayleigh Rizzo PA-C - 11/03/2025 2:30 PM EST Maternal- Medicine Consultation VIDEO Patient is present at work, provider present at [facility] HISTORY OF PRESENT ILLNESS: Driss [...] by e-mail to: or by fax to: [phone] Kayleigh Rizzo PA-C Maternal- Medicine Office phone: [phone] Kayleigh Rizzo PA-C 11/03/25 2548 * Kameron Burr - 11/03/2025 2:30 PM [...] Date Cruz Rodríguez MD [address] [place] [address] PCP - GeneralFamily Medicine12/02/18documented as of this encounter
--- OUTSIDE RECORDS SUMMARY | 2025-11-03 15:08 | XMS_ITS | Encounter Summary ---
Author Organization [facility] tem Address [id number] [address] [place] [address] Care Team Providers Care Television Camera Operator Name Role Phone Cruz Rodríguez MD Primary Care Provider [phone] Reason for Visit * ReasonCommentsHypertension Encounter Details DateTypeDepartmentCare Team (Latest Contact Info)Lrsmklcmdsu47/09/2025 3:08 PM EST - 11/03/2025 5:57 PM ESTHospital Encounter [facility] [address] [place] [address] Trista Leach, [address] [place] [place] [address] Insulin controlled gestational diabetes mellitus (GDM) in [...] or more drinks on one occasion?Never09/10/2025hildcareAnswer Date LmdfkpswUzbwmqdtrYsqjplh31/13/2019EmploymentAnswerDate RecordedEmployment Pcnpdck5005/08/2019Hunger ScreeningAnswerDate RecordedWithin the past 12 months we worried whether our food would run out before we got money to buy more.Never True09/10/2025Within the past 12 months the food we bought just didn't last and we didn't have money to get more.Never True09/10/2025Purpose - LifeAnswerDate RecordedPurpose and direction in cwxfYfqdfzp86/11/2021Estimated Date of XmbaouseQwdbilezGkd70/03/2026Based on last menstrual period of 02/21/2025 (Exact Date)Sex and Gender InformationValueDate RecordedSex Assigned at BirthNot on fileLegal QbbBxjxfb65/07/2019 2:55 PM ESTGender IdentityNot on fileSexual OrientationNot on filedocumented as of this encounter Last Filed Vital Signs Vital SignReadingTime TakenCommentsBlood Lbzdnesg688/6711/03/2025 4:45 PM EST Uvvfb258411/03/2025 4:45 PM ZIHFrqkcdgvyyn08.6 ??C (97.8 ??F)11/03/2025 3:26 PM ESTRespiratory Euau159001/04/2025 3:26 PM ESTOxygen Saturation--Inhaled Oxygen Concentration--Wacfdd90 kg (172 lb)11/03/2025 3:26 PM TDJBqlgxs047.5 cm (5' 2 ) 11/03/2025 3:26 PM ESTBody Mass Index31.4611/03/2025 3:26 PM ESTdocumented in this encounter Functional Status * HEENTQuestionAnswerDate of AssessmentAuthorHEENT (WDL)WDL101/04/2025 3:30 PM Jackelyn Epstein RN * Preeclampsia AssessmentAnswerDate of XyesqydvbeUfjlvpG45/09/2025 3:30 PM Jackelyn Baptiste RN * Human Trafficking ScreenQuestionAnswerDate of AssessmentAuthorHuman Trafficking ScreenNo present dqxsjoex36/09/2025 3:30 PM Jackelyn Epstein RN * Diabetic ScreeningQuestionAnswerDate of AssessmentAuthorHave you been diagnosed with qixzxwstXux69/09/2025 3:30 PM Jackelyn Epstein RNType of xxywpjxgVgoxxwyuoti89/09/2025 3:30 PM Jackelyn Epstein RNDo you take fagoqmgKpc60/09/2025 3:30 PM Jackelyn Epstein RNAre you on an insulin ybawSw1711/03/2025 3:30 PM Jackelyn Epstein RNDo you use a Continuous Glucose Monitor (GCM)No11/03/2025 3:30 PM Jackelyn Epstein, DIALLO * Heart RateQuestionAnswerDate of AssessmentAuthorMonitorExternal US 11/03/2025 5:00 PM Jackelyn Epstein RNBaseline Variability AModerate (Between 6 and 25 BPM)11/03/2025 5:00 PM Jackelyn Epstein RNBaseline Rate K5996801/04/2025 5:00 PM Jackelyn Epstein RNFHR Rhythm BGfnzbre12/09/2025 5:00 PM Jackelyn Epstein RNAcceleration AAccelerations udyrcam8211/03/2025 5:00 PM Jackelyn Epstein RNDeceleration ANone11/03/2025 5:00 PM Jackelyn Baptiste RNCharacteristics GNwitce37/09/2025 5:00 PM Jackelyn Epstein RNCategory ACategory I101/04/2025 5:00 PM Jackelyn Epstein, RN * Uterine ActivityQuestionAnswerDate of AssessmentAuthorResting ToneSoft 11/03/2025 5:00 PM Jackelyn Epstein RNDuration80-10011/03/2025 5:00 PM Jackelyn Epstein RNCtx per 10 ctpyyfrmphiprn19/09/2025 5:00 PM Jackelyn Baptiste RNMonitorToco11/03/2025 5:00 PM Jackelyn Epstein RN SqjleatkaIxwn09/09/2025 5:00 PM Jackelyn Epstein RN * BEE (kcal)AnswerDate of DpzzxmjerbQdhifd924553/09/2025 3:26 PM Jackelyn Epstein RN * Opioid Screening (SAFER)QuestionAnswerDate of AssessmentAuthorDo you struggle with any opiates (such as Oxycodone, [place], Percocet, Morphine, Fentanyl, Heroin) that you may need help?No11/03/2025 3:30 PM Jackelyn Epstein RN * Pneumonia Vaccine Screen ages 19 to 64QuestionAnswerDate of AssessmentAuthor Are any of the following pneumococcal vaccine contraindications present? Patient refuses pneumonia rkkwnbb4511/03/2025 3:31 PM Jackelyn Epstein RN Pneumococcal Vaccine Decision:STOP - No Pneumococcal vaccine is indicated 11/03/2025 3:31 PM Jackelyn Epstein RN * VitalsQuestionAnswerDate of PfrrztdxuzQzabrrUehkpy7883/09/2025 3:26 PM Jackelyn Baptiste RNWeight275211/03/2025 3:26 PM Jackelyn Epstein RN * Vital SignsQuestionAnswerDate of SgsamixwhlAascdmZW829/6711/03/2025 4:45 PM Jackelyn Epstein, GVIsujj9146/09/2025 4:45 PM Jackelyn Epstein RNMAP (mmHg)7811/03/2025 4:45 PM Jackelyn Epstein RN * GastrointestinalQuestionAnswerDate of AssessmentAuthorGastrointestinal (WDL) WDL101/04/2025 3:30 PM Jackelyn Epstein RN * MusculoskeletalQuestionAnswerDate of AssessmentAuthorMusculoskeletal (WDL)WDL 11/03/2025 3:30 PM Jackelyn Epstein RN * GenitaliaQuestionAnswerDate of AssessmentAuthorFemale GenitaliaIntact 11/03/2025 3:30 PM Jackelyn Epstein RN * Anus/RectumQuestionAnswerDate of AssessmentAuthorAnus/Rectum (WDL)WDL 11/03/2025 3:30 PM Jackelyn Epstein RN * PsychosocialQuestionAnswerDate of AssessmentAuthorPsychosocial (WDL)WDL 11/03/2025 3:30 PM Jackelyn Epstein RN * BSA (Calculated - sq m)AnswerDate of AssessmentAuthor1.8512 3:26 PM Jackelyn Epstein RN * BMI (Calculated)AnswerDate of IpdbhofurgFbrusb34.512 3:26 PM Jackelyn Baptiste RN * RespiratoryQuestionAnswerDate of AssessmentAuthorRespiratory (WDL)WDL 11/03/2025 3:30 PM Jackelyn Epstein RN * GenitourinaryQuestionAnswerDate of AssessmentAuthorGenitourinary (WDL)WDL 11/03/2025 3:30 PM Jackelyn Epstein RN * NeurologicalQuestionAnswerDate of AssessmentAuthorNeuro (WDL)WDL101/04/2025 3:30 PM Jackelyn Epstein RN * PrecautionsQuestionAnswerDate of YztpuerlttWgizvgSzrpoqjbgzzQnlu35/09/2025 3:30 PM Jackelyn Epstein RN * Harm Risk AssessmentQuestionAnswerDate of AssessmentAuthorAre you having thoughts of homicide or causing harm to others?No11/03/2025 3:31 PM Jackelyn Baptiste RN * Blood HistoryQuestionAnswerDate of AssessmentAuthorHave you had a blood transfusion?No11/03/2025 3:28 PM Jackelyn Epstein RNWould you accept a blood transfusion in a life-threatening situation?Yes11/03/2025 3:28 PM Jackelyn Baptiste RN * Communication AssessQuestionAnswerDate of AssessmentAuthorType of Communication GlssshiLsor60/09/2025 3:30 PM Jackelyn Epstein RN * Adult Sepsis RiskQuestionAnswerDate of AssessmentAuthorSIRS Criteria1 11/03/2025 5:40 PM Khloe ClindocRisk of Sepsis v.20.212 5:40 PM ESTBackground, Clindoc * Grease Board NotesQuestionAnswerDate of AssessmentAuthorGrease Board Notes HEADACHE, ^BP101/04/2025 4:19 PM Amy Brewster L, EXPERIMENTAL MACHINING LAB MANAGER-CNM * Last PO IntakeQuestionAnswerDate of AssessmentAuthorTime of last xhzzjm74385 11/03/2025 3:26 PM Jackelyn Epstein, RNDate of last nqhhar1929039/09/2025 3:26 PM Jackelyn Epstein, RNDate of last hrddd1350488 3:26 PM Jackelyn Baptiste, RNTime of last ezzut0641260/09/2025 3:26 PM Jackelyn Epstein RN * Maternal VitalsQuestionAnswerDate of BdtziqywbwKwaczfVmrq96.8101/04/2025 3:26 PM Jackelyn Epstein RNTemp zvoTmfr0911/03/2025 3:26 PM Jackelyn Epstein ZPTuuk1953/09/2025 3:26 PM Jackelyn Epstein RNBP cuff sizeAdult (25-34cm)11/03/2025 3:26 PM Jackelyn Epstein RNArm circumference (cm)27 11/03/2025 3:26 PM Jackelyn Epstein, RN * Influenza Vaccine Screen - August Through JanuaryQuestionAnswerDate of AssessmentAuthorInfluenza Vaccine Contraindications/RefusedPatient or agent declines/refuses ijgldgg4211/03/2025 3:31 PM Jackelyn Epstein RNHave you had an influenza vaccine this season?No11/03/2025 3:31 PM Jackelyn Epstein RN * Weight in (lb) to have BMI = 25AnswerDate of WxalciftjmVlbzqq802. 3:26 PM Jackelyn Epstein RN * Pain AssessmentQuestionAnswerDate of AssessmentAuthorPain LocationHead 11/03/2025 3:26 PM ESTHoJackelyn mills RNPain CnzmdxqqzkwVtrqjxzb83/09/2025 3:26 PM Jackelyn Epstein RNResponse to InterventionsPain improved 11/03/2025 4:30 PM Jackelyn Epstein RNPain Assessment0-10101/04/2025 3:26 PM Jackelyn Epstein RNPain Kxrwq62601/04/2025 3:26 PM Jackelyn Epstein RNObserved IeawoxxsGtvu19/09/2025 3:26 PM Jackelyn Epstein RN * NutritionQuestionAnswerDate of AssessmentAuthorCurrent Diet TypeOB Regular Npgthrg9311/03/2025 3:30 PM Jackelyn Eptsein RAWwxicswuHokm55/09/2025 3:30 PM Jackelyn Epstein RNRoom ServiceAppropriate for room nmgvcze0311/03/2025 3:30 PM Jackelyn Epstein RN * Tattoos/PiercingsQuestionAnswerDate of AssessmentAuthorPiercings RemainingYes 11/03/2025 3:30 PM Jackelyn Epstein RNDoes patient have tattoos?Yes 11/03/2025 3:30 PM Jackelyn Epstein RNList Piercings RemainingBelly button;Ears11/03/2025 3:30 PM Jackelyn Epstein RN * [place] Suicide BehaviorQuestionAnswerDate of AssessmentAuthor6. Have you ever done anything, started to do anything, or prepared to do anything to end your life?No11/03/2025 3:31 PM Jackelyn Epstein RN * Suicidal Ideation (Last Month)QuestionAnswerDate of AssessmentAuthor1. In the last month have you wished you were or wished you could go to sleep and not wake up?No11/03/2025 3:31 PM Jackelyn Epstein RN2. In the last month have you actually had any thoughts of killing yourself?No11/03/2025 3:31 PM Jackelyn Epstein RNAble to assess?Yes11/03/2025 3:31 PM Jackelyn Epstein RN * CardiovascularQuestionAnswerDate of AssessmentAuthorCardiovascular (WDL)WDL 11/03/2025 3:30 PM Jackelyn Epstein RN * Preeclampsia AssessmentQuestionAnswerDate of AssessmentAuthorPIH headache wrhxtkwKai12/09/2025 3:30 PM Jackelyn Epstein RNVisual DisturbanceDenies 11/03/2025 3:30 PM Jackelyn Epstein RNEpigastric qpqpSoemyj47/09/2025 3:30 PM Jackelyn Epstein RN * [place] Suicide Risk LevelAnswerDate of AssessmentAuthorNot at Suicide Risk 11/03/2025 3:31 PM Jackelyn Epstein RN * Uterine ActivityQuestionAnswerDate of AssessmentAuthorResting ToneSoft 11/03/2025 5:00 PM Jackelyn Epstein RNDuration80-10011/03/2025 5:00 PM Jackelyn Epstein RNCtx per 10 clcycjgjbhsjfd35/09/2025 5:00 PM Jackelyn Baptiste RNMonitorToco11/03/2025 5:00 PM Jackelyn Epstein RN JeszikzheHofc80/09/2025 5:00 PM Jackelyn Epstein RN * BEE (kcal)AnswerDate of WwemzpbmqaSfdeks908276/09/2025 3:26 PM Jackelyn Epstein RN * VitalsQuestionAnswerDate of JbngjwpyokSzrfeqQvhvqn9067/09/2025 3:26 PM Jackelyn Baptiste RNWeight275211/03/2025 3:26 PM Jackelyn Epstein RN * Vital SignsQuestionAnswerDate of PgxziolgbjAiwgqjML184/6711/03/2025 4:45 PM Jackelyn Epstein, RUGgdsg6098/09/2025 4:45 PM Jackelyn Epstein RNMAP (mmHg)7811/03/2025 4:45 PM Jackelyn Epstein RN * BSA (Calculated - sq m)AnswerDate of AssessmentAuthor1.8512 3:26 PM Jackelyn Epstein RN * BMI (Calculated)AnswerDate of GyittikmypTcevfd56.512 3:26 PM Jackelyn Baptiste RN * Maternal VitalsQuestionAnswerDate of VtmiioylivPxiaekDdun58.812 3:26 PM Jackelyn Epstein RNTemp ybjFjhs1311/03/2025 3:26 PM Jackelyn Epstein RNResp16101/04/2025 3:26 PM Jackelyn Epstein RN * Weight in (lb) to have BMI = 25AnswerDate of YthieyrhvgYxjzcd819.412 3:26 PM Jackelyn Epstein RN documented as of this encounter Mental Status * HEENTQuestionAnswerEntry DateAuthorHEENT (WDL)WDL101/04/2025 3:30 PM Jackelyn Baptiste RN * Vital SignsQuestionAnswerEntry ShxgJofxirEL242/6711/03/2025 4:45 PM Jackelyn Baptiste QBHsren3834/09/2025 4:45 PM Jackelyn Epstein RNMAP (mmHg)7811/03/2025 4:45 PM Jackelyn Epstein RN * GastrointestinalQuestionAnswerEntry DateAuthorGastrointestinal (WDL)WDL 11/03/2025 3:30 PM Jackelyn Epstein RN * MusculoskeletalQuestionAnswerEntry DateAuthorMusculoskeletal (WDL)WDL 11/03/2025 3:30 PM Jackelyn Epstein RN * GenitaliaQuestionAnswerEntry DateAuthorFemale TrznhcisuYsluai53/09/2025 3:30 PM Jackelyn Epstein RN * Anus/RectumQuestionAnswerEntry DateAuthorAnus/Rectum (WDL)WDL101/04/2025 3:30 PM Jackelyn Epstein RN * PsychosocialQuestionAnswerEntry DateAuthorPsychosocial (WDL)WD01/04/2025 3:30 PM Jackelyn Epstein RN * RespiratoryQuestionAnswerEntry DateAuthorRespiratory (WDL)WDL101/04/2025 3:30 PM Jackelyn Epstein RN * GenitourinaryQuestionAnswerEntry DateAuthorGenitourinary (WDL)WD01/04/2025 3:30 PM Jackelyn Epstein RN * NeurologicalQuestionAnswerEntry DateAuthorNeuro (WDL)WDL101/04/2025 3:30 PM Jackelyn Baptiste RN * Maternal VitalsQuestionAnswerEntry UaenFczrezOgvm69.8101/04/2025 3:26 PM Jackelyn Baptiste RNTemp sdzLqog8011/03/2025 3:26 PM Jackelyn Epstein RN Jufc130401/04/2025 3:26 PM Jackelyn Epstein RNBP cuff sizeAdult (25-34cm) 11/03/2025 3:26 PM Jackelyn Epstein RNArm circumference (cm)27101/04/2025 3:26 PM Jackelyn Epstein RN * Pain AssessmentQuestionAnswerEntry DateAuthorPain FszbvhbcPfwe76/09/2025 3:26 PM Jackelyn Epstein RNPain OppvfmhpomlEphnxjtw83/09/2025 3:26 PM Jackelyn Baptiste RNResponse to InterventionsPain nardudff11/09/2025 4:30 PM Jackelyn Epstein RNPain Assessment0-10101/04/2025 3:26 PM Jackelyn Epstein RNPain Mskty38301/04/2025 3:26 PM Jackelyn Epstein RNObserved CkpxgrqcRtac60/09/2025 3:26 PM Jackelyn Epstein RN * Tattoos/PiercingsQuestionAnswerEntry DateAuthorPiercings RemainingYes 11/03/2025 3:30 PM ESTHoffman, Jackelyn, RNDoes patient have tattoos?Yes 11/03/2025 3:30 PM Jackelyn Epstein RNList Piercings RemainingBelly button;Ears11/03/2025 3:30 PM Jackelyn Epstein RN documented in this encounter Discharge Instructions * Discharge [...] as of this encounter H&P Notes * Deirdre HernandezJAMI-MARIBEL - 11/03/2025 3:56 PM EST Images from the original note were not included. [facility] Emergency Department Chief Complaint: Chief Complaint [...] Results Component Value Date GLUF 82 08/15/2025 ZPNCUDJ1EJ 152 08/15/2025 UCJWUBG2DU 169 08/15/2025 NPWOQYW5YM 141 08/15/2025 Physical Exam General appearance - [...] Acid 6 - LDH 130 - AST/ALT / - UPCR .12 Plan - Plan to [...] as of this encounter Procedures Procedure NamePriorityDate/TimeAssociated QehcwvhzdNocqlpmgJJRTYJH91/09/2025 3:54 PM EST CBC (NO DIFF)STAT101/04/2025 3:54 PM EST URIC IEDRUEDC46/09/2025 3:54 PM EST COMPREHENSIVE METABOLIC PPQVFIYIN34/09/2025 3:54 PM EST PROTEIN CREAT ANLZLEBTR79/09/2025 3:39 PM EST documented in this encounter Results * (ABNORMAL) CBC without diff (11/03/2025 3:54 PM EST)ComponentValueRef Range Test MethodAnalysis TimePerformed AtPathologist MaqzhnprsZCW55.3(H)4 - 11 10^11/03/2025 4:30 PM [facility] LABORATORYRBC Count4.07 3.8 - 5.2 10^11/03/2025 4:30 PM [facility] Bhkrrfzsxv66.311.7 - 15.5 g/dL11/03/2025 4:30 PM [facility] EBUUVCPHSUBescfvdxcn30.935 - 47 %11/03/2025 4:30 PM [facility] GUFUKEBIIBDPB5280 - 100 fL11/03/2025 4:30 PM [facility] TFDKVGBHQITOQ27.327 - 34 pg11/03/2025 4:30 PM [facility] GBNVOQHQOVHCBV19.432 - 36 g/dL11/03/2025 4:30 PM [facility] FDUXITCHJHZQB11.611.5 - 15 %11/03/2025 4:30 PM [facility] LABORATORYPlatelet Ttfqm076667 - 450 10^11/03/2025 4:30 PM [facility] LABORATORYMPV8.17 - 12 fL11/03/2025 4:30 PM [facility] LABORATORYSpecimen (Source)Anatomical Location / Laterality Collection Method / VolumeCollection TimeReceived TimeBloodVenous blood / UnknownVenipuncture / Vovtykk7311/03/2025 3:54 PM EST11/03/2025 4:18 PM EST Narrative Authorizing ProviderResult TypeResult StatusAllison Mary EXPERIMENTAL MACHINING LAB MANAGER-CNMLAB BLOOD ORDERABLESFinal ResultPerforming OrganizationAddressCity/State/ZIP CodePhone Number [facility] [address] [place] [address], * Uric acid (11/03/2025 3:54 PM EST)ComponentValueRef RangeTest MethodAnalysis TimePerformed AtPathologist SignatureURIC ACID6.02.6 - 7.2 mg/dL11/03/2025 4:52 PM [facility] LABORATORYSpecimen (Source)Anatomical Location / LateralityCollection Method / VolumeCollection TimeReceived Time BloodVenous blood / UnknownVenipuncture / Yzupbqd7311/03/2025 3:54 PM EST 11/03/2025 4:18 PM EST Narrative Authorizing ProviderResult TypeResult StatusChoctaw Health Centerpia Hernandez EXPERIMENTAL MACHINING LAB MANAGER-CNMLAB BLOOD ORDERABLESFinal ResultPerforming OrganizationAddressCity/State/ZIP CodePhone Number [facility] [address] [place] [address], * LDH (11/03/2025 3:54 PM EST)ComponentValueRef RangeTest MethodAnalysis Time Performed AtPathologist VaeaftdtiPSE755404 - 235 U/L101/04/2025 4:[address] LABORATORYSpecimen (Source)Anatomical Location / LateralityCollection Method / VolumeCollection TimeReceived TimeBloodVenous blood / UnknownVenipuncture / Umdcppp9411/03/2025 3:54 PM EST11/03/2025 4:18 PM EST Narrative Authorizing ProviderResult TypeResult StatusAllpia Hernandez EXPERIMENTAL MACHINING LAB MANAGER-CNMLAB BLOOD ORDERABLESFinal ResultPerforming OrganizationAddressCity/State/ZIP CodePhone Number [facility] [address] [place] [address], * (ABNORMAL) Comprehensive metabolic panel (11/03/2025 3:54 PM EST)Component ValueRef RangeTest MethodAnalysis TimePerformed AtPathologist SignatureSODIUM 364315 - 146 mmol/L101/04/2025 4:52 PM [facility] POTASSIUM3.73.5 - 5.0 mmol/L101/04/2025 4:52 PM [facility] DGLLFNQJRGRMVWCTEC31556 - 109 mmol/L101/04/2025 4:52 PM [facility] LABORATORYCARBON KJUJPTR68(L)22 - 32 mmol/L101/04/2025 4:52 PM [facility] LABORATORYANION RAJ812 - 15 mmol/L101/04/2025 4:52 PM [facility] LABORATORYBLOOD UREA HQQGCRSA877 - 23 mg/dL11/03/2025 4:52 PM [facility] LABORATORYCREATININE0.580.40 - 1.00 mg/dL 11/03/2025 4:52 PM [facility] LABORATORYComment:METHOD TRACEABLE TO IDIA DAFQNWDYZJKFDZD151(H)65 - 99 mg/dL11/03/2025 4:52 PM [facility] LABORATORYCALCIUM8.68.5 - 10.5 mg/dL11/03/2025 4:52 PM [facility] LABORATORYTOTAL PROTEIN6.66.0 - 8.0 g/dL 11/03/2025 4:52 PM [facility] LABORATORYALBUMIN3.73.2 - 5.3 g/dL11/03/2025 4:52 PM [facility] LABORATORYALKALINE XNXFZCRAMVU596(H)39 - 130 U/L101/04/2025 4:52 PM [facility] YUBZJIHEZMOFO44<=41 U/L101/04/2025 4:52 PM [facility] EQURACJUBQXQW20<=31 U/L101/04/2025 4:52 PM [facility] LABORATORYBILIRUBIN,TOTAL1.00.3 - 1.2 mg/dL11/03/2025 4:52 PM [facility] LABOR[facility]ORYEGFR Non-Race Dependent>90>=60 ml/min/1.73sq.m 11/03/2025 4:52 PM [facility] LABORATORYComment: Reported eGFR is based on the CKD-EPI 2020 equation that does not use a race coefficient. Specimen (Source)Anatomical Location / LateralityCollection Method / Volume Collection TimeReceived TimeBloodVenous blood / UnknownVenipuncture / Unknown 11/03/2025 3:54 PM EST11/03/2025 4:18 PM EST Narrative Authorizing ProviderResult TypeResult StatusDeirdre Hernandez EXPERIMENTAL MACHINING LAB MANAGER-CNMLAB BLOOD ORDERABLESFinal ResultPerforming OrganizationAddressCity/State/ZIP CodePhone Number [facility] [address] [place] [address], * Protein creat ratio (11/03/2025 3:39 PM EST)ComponentValueRef RangeTest Method Analysis TimePerformed AtPathologist SignatureURINE PROTEIN, RANDOM (MG/L)110 <120 mg/L101/04/2025 4:36 PM [facility] LABORATORYURINE CREATININE,RDM90.72mg/dL11/03/2025 4:36 PM [facility] LABORATORYU/PRO/SOLE DYER RATIO CALC0.12<=0. 4:36 PM [facility] LABORATORYSpecimen (Source)Anatomical Location / LateralityCollection Method / VolumeCollection TimeReceived TimeUrineUrine specimen collection, clean catch / UnknownCollection / Usbezhl7611/03/2025 3:39 PM EST11/03/2025 4:[address] [facility] - 11/03/2025 4:36 PM EST Nephrotic Syndrome is associated with ratios >3.5 Authorizing ProviderResult TypeResult StatusDeirdre Hernandez EXPERIMENTAL MACHINING LAB MANAGER-CNMURINE ORDERABLESFinal ResultPerforming OrganizationAddressCity/State/ZIP CodePhone Number [facility] [address] [place] [address], documented in this encounter Visit Diagnoses Diagnosis [...] infusion 250 mL/hr, intravenous, Continuous, Starting on 12/9/25 at 1615, For 1 day New Bag11/03/2025 4:02 PM ODK724 mL/hr250 mL/hr metoclopramide (REGLAN) injection 10 mg [...] (Given - Provider: Jackelyn Adler RN) Medication Order/ lactated ringers infusion 250 mL/hr, intravenous, Continuous, Starting on Sun11/03/25 at 1615, For 1 day * 1602 (New Bag - Provider: Jackelyn Adler RN) * 1703 (Stop Bag - Provider: Jackelyn Adler RN) documented in this encounter Care Teams Team MemberRelationshipSpecialtyStart DateEnd Date Cruz Rodríguez MD [address] [place] [address] PCP - GeneralFamily Medicine12/02/18documented as of this encounter
--- OUTSIDE RECORDS SUMMARY | 2025-11-04 14:10 | XMS_ITS | Encounter Summary ---
Author Organization [facility] Address [address] [place] [address] Care Team Providers Care Tool Chaser Name Role Phone Eliceo Beltran Primary Care Provider Charlottecarol Eliceo Hurtado DO Unavailable [phone] Reason for Visit * ReasonCommentsRoutine Visit Encounter Details DateTypeDepartmentCare Team (Latest Contact Info)Ufjzzgrqipz70/10/2025 2:10 PM ESTRoutine [facility] [address] [place] [phone] Nathan Pop DO [address], [place] [id number] Third trimester ([facility]); 36 weeks gestation of ([facility]) Social History Tobacco UseTypesPacks/DayYears UsedDateSmoking Tobacco: NeverSmokeless Tobacco: NeverAlcohol UseStandard Drinks/WeekCommentsNever0 (1 standard drink = 0.6 oz pure alcohol)caffeine: 1-2 cups per day, coffee and [id number] Health Literacy AnswerDate RecordedHow often do you [...] week12/29/2024How often do you attend confucianism or restorationism services?Patient snulgkdb45/03/2025Do you belong to any clubs or organizations such as confucianism groups, unions, fraInsight Guru or athletic leodan ups, or school groups?No12/29/2024How often do you attend meetings of the clubs or organizations you belong to?Patient ersvcnxs54/03/2025re you , , , , never , [...] all12/29/2024PHQ-2AnswerDate RecordedPatient Health Questionnaire-2 Score0 07/30/2025[facility] [place] [facility] - Occupational Stress QuestionnaireAnswerDate RecordedDo you feel stress - tense, restless, nervous, or anxious, or unable to sleep at night because yourmind is troubled all the time - these days?Only a mbnycm3412/29/2024Exercise Vital SignAnswerDate Recorded On average, how many [...] steady place to sleep or slept in [facility] (including now)?No09/19/2023Housing Stability Vital SignAnswerDate [...] the highest degree you have received?High school zvefgmuu88/29/2023 Estimated Date of RzqmrsvmZlgbopkiSko08/03/2026ased on last menstrual period of 02/21/2025Sex and Gender InformationValueDate RecordedSex Assigned at BirthNot on fileLegal OwoHeaeqp33/15/2023 7:18 PM EDTGender IdentityNot on file Sexual OrientationNot on 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 Not on fileNot on fileNot on filedocumented as of this encounter Last Filed Vital Signs Vital SignReadingTime TakenCommentsBlood Igkvkuti740/8412 2:04 PM EST Pulse--Temperature--Respiratory Rate--Oxygen Saturation--Inhaled Oxygen Concentration--Vawyza37.6 kg (171 lb)11/04/2025 2:04 PM ESTHeight--Body Mass Index31.2809 3:36 PM EDTdocumented in this encounter Progress Notes * Christine Ravi, MODEL HOME SALES GREETER - 11/04/2025 2:10 PM EST Reason for [...] 02/19/2024 Diarrhea 03/24/2025 33 weeks gestation of ([facility]) 10/14/2025 Third trimester ([facility]) 10/14/2025 H/O pre-eclampsia in prior , currently ([facility]) 10/29/2025 H/O premature delivery 10/29/2025 Resolved Ambulatory Problems Diagnosis Date Noted No Resolved Ambulatory Problems Past Medical History: Diagnosis Date Amenorrhea d/t oral contraceptive pills John San infection GDM (gestational diabetes mellitus) ([facility]) Headache History of menstrual cramps ([facility]) Varicella zoster Visual impairment HISTORY PAST MEDICAL HISTORY SOCIAL HISTORY Past Medical History: Diagnosis Date Amenorrhea d/t oral contraceptive pills Endometriosis John San infection GDM (gestational diabetes mellitus) ([facility]) Headache History of menstrual cramps severe Hypertension ([facility]) x1 Varicella zoster unsure Visual impairment w/ [...] History: Procedure Laterality Date APPENDECTOMY 05/2016 at [facility] DILATION AND CURETTAGE [...] nursing note reviewed. Exam conducted with a stain maker present. Vitals: Estimated body mass index is 31.28 kg/m?? as calculated from the following: Height as of 07/30/25: 5' 2 . Weight as of this encounter: 171 lb. BP: 134/84 Patient's last menstrual period was 02/21/2025. Assessment/Plan ICD-10-CM 1. Third trimester ([facility]) Z34.93 2. 36 weeks gestation of ([facility]) Z3A.36 POCT urinalysis dipstick manually resulted Assessment/Plan [...] Plan of Treatment DateTypeDepartmentCare Team (Latest Contact Info)Vpwwaeejtzw56/26/2026 11:20 AM ESTPostpartum Visit [facility] [address] [place] [phone] Nathan Pop DO [address] [place] [address] documented as of this encounter Procedures Procedure NamePriorityDate/TimeAssociated DiagnosisCommentsPOCT URINALYSIS AXHYDTJOZrfluok19/10/2025 2:14 PM EST 36 weeks gestation of ([facility]) documented in this encounter Results [...] this encounter Visit Diagnoses Diagnosis Third trimester ([facility]) state, incidental 36 weeks gestation of ([facility]) documented in this encounter Care Teams Team MemberRelationshipSpecialtyStart DateEnd Date Eliceo Beltran DO [address] [place] [address] PCP - GeneralFamily Medicine02/14/24 Eliceo Beltran DO [address] [place] [address] PCP - Medical Viola Commercial07/27/2412documented as of this encounter
--- OUTSIDE RECORDS SUMMARY | 2025-11-13 08:09 | XMS_ITS | Encounter Summary ---
Author Organization [facility] Address [address] [place] [place] [address] Care Team Providers Care Program Dir Name Role Phone Eliceo Beltran DO Primary Care Provider [phone] CharlottecarolEliceo Unavailable [phone] Encounter Details DateTypeDepartmentCare Team (Latest Contact Info)Qbjqwhbqjxx27/10/2025amboo flowsheet [facility] [address] [address] Nathan Pop DO [address] [facility] [address] [place], [facility] Social History Tobacco UseTypesPacks/DayYears UsedDateSmoking Tobacco: NeverSmokeless Tobacco: NeverAlcohol UseStandard Drinks/WeekCommentsNever0 (1 standard drink = 0.6 oz pure alcohol)caffeine: 1-2 cups per day, coffee and [id number] Health Literacy AnswerDate RecordedHow often do you [...] week12/29/2024How often do you attend methodist or baptist services?Patient howtojhe47/03/2025Do you belong to any clubs or organizations such as methodist groups, unions, [employer] or athletic leodan ups, or school groups?No12/29/2024How often do you attend meetings of the clubs or organizations you belong to?Patient ofrirfuy67/03/2025re you , , , , never , [...] Health Questionnaire-2 Score0 07/30/2025[facility] [place] of Occupational Health - Occupational Stress QuestionnaireAnswerDate RecordedDo you feel stress - tense, restless, nervous, or anxious, or unable to sleep at night because yourmind is troubled all the time - these days?Only a imknfo3512/29/2024Exercise Vital SignAnswerDate Recorded On average, how many [...] steady place to sleep or slept in [facility] (including now)?No09/19/2023Housing Stability Vital SignAnswerDate RecordedIn [...] the highest degree you have received?High school kpvhargb68/29/2023 Estimated Date of SpjddswpElflfgymHjg70/03/2026ased on last menstrual period of 02/21/2025Sex and Gender InformationValueDate RecordedSex Assigned at BirthNot on fileLegal PrpNgwpna31/15/2023 7:18 PM EDTGender IdentityNot on file Sexual OrientationNot on 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 Not on fileNot on fileNot on filedocumented as of this encounter Plan of Treatment DateTypeDepartmentCare Team (Latest Contact Info)Lliwwzcnsln29/26/2026 11:20 AM ESTPostpartum Visit [facility] [address] [id number] Nathan Pop DO [address] [facility] [place] [address] documented as of this encounter Visit Diagnoses Not on filedocumented in this encounter Care Teams Team MemberRelationshipSpecialtyStart DateEnd Date Eliceo Beltran DO [address] [address] PCP - GeneralFamily Medicine02/14/24 Eliceo Beltran DO [address] [facility] [place] [address] PCP - Medical [place] [employer]07/27/2412documented as of this encounter
--- OUTSIDE RECORDS SUMMARY | 2025-11-13 08:09 | XMS_ITS | Encounter Summary ---
Author Organization [facility] Address [address] [place] [address] Care Team Providers Care Medical Transcription Name Role Phone Eliceo Beltran DO Primary Care Provider CharlottegeovaniEliceo kauffman Unavailable [phone] Encounter Details DateTypeDepartmentCare Team (Latest Contact Info)Ncpyuyxkhef29/10/2025bstract [facility] [address] [place] [address] Nathan Pop DO [address] [facility] [address] [place], [facility]11 Social History Tobacco UseTypesPacks/DayYears UsedDateSmoking Tobacco: NeverSmokeless Tobacco: NeverAlcohol UseStandard Drinks/WeekCommentsNever0 (1 standard drink = 0.6 oz pure alcohol)caffeine: 1-2 cups per day, coffee and [id number] Health Literacy AnswerDate RecordedHow often do you [...] week12/29/2024How often do you attend evangelical or pentecostalism services?Patient hyjuyuhj08/03/2025Do you belong to any clubs or organizations such as evangelical groups, unions, [employer] or athletic leodan ups, or school groups?No12/29/2024How often do you attend meetings of the clubs or organizations you belong to?Patient geabhriy35/03/2025re you , , , , never , [...] RecordedPatient Health Questionnaire-2 Score0 07/30/2025[facility] [place] of Occupational Health - Occupational Stress QuestionnaireAnswerDate RecordedDo you feel stress - tense, restless, nervous, or anxious, or unable to sleep at night because yourmind is troubled all the time - these days?Only a pcwucu7512/29/2024Exercise Vital SignAnswerDate Recorded On average, how many [...] the highest degree you have received?High school dmlimbjh18/29/2023 Estimated Date of DwajpyjeYnqgfoinVec26/03/2026ased on last menstrual period of 02/21/2025Sex and Gender InformationValueDate RecordedSex Assigned at BirthNot on fileLegal DxsRzuikb33/15/2023 7:18 PM EDTGender IdentityNot on file Sexual OrientationNot on 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 Not on fileNot on fileNot on filedocumented as of this encounter Plan of Treatment DateTypeDepartmentCare Team (Latest Contact Info)Oeonenixlcr67/26/2026 11:20 AM ESTPostpartum Visit [facility] [address] [phone] Nathan Pop DO [address] [facility] [place] [address] documented as of this encounter Visit Diagnoses Not on filedocumented in this encounter Care Teams Team MemberRelationshipSpecialtyStart DateEnd Date Eliceo Beltran DO [address] [facility] [place] [address] PCP - GeneralFamily Medicine02/14/24 Eliceo Beltran DO [address] [facility] [place] [address] PCP - Medical [place] [employer]07/27/2412documented as of this encounter
--- OUTSIDE RECORDS SUMMARY | 2025-11-13 08:10 | XMS_ITS ---
Author Organization [facility] Address [address] [facility] [place] [address] Care Team Providers Care Dry Wall Installer Name Role Phone Eliceo Beltran DO Primary Care Provider [phone] Eliceo Beltran DO Unavailable [phone] Inpatient Discharge Transitional Care Management (TCM) Status:Closed (Closed) Start date:11/11/2025 Enrollment date:11/12/2025 Enrollment reason:Identified using discharge data End date:11/12/2025 Close reason:Not eligible Overview Patient discharged from [facility] on 11/11. Please contact for hospital MELA and schedule follow-up appointment within 7-14 days. Continued Care and Services Coordination
--- OUTSIDE RECORDS SUMMARY | 2025-11-13 08:10 | XMS_ITS | Encounter Summary ---
Author Organization [facility] Address [address] [place] [address] Care Team Providers Care Fire Crew Specialist Name Role Phone NirajEliceo kauffman Primary Care Provider [phone] Charlottecarol Eliceo Hurtado DO Unavailable [phone] Encounter Details DateTypeDepartmentCare Team (Latest Contact Info)Olzmvuupplh69/15/2025Clinisync Result Encounter [facility] Department Unsolicited Nathan Pop DO [address] [place] [address] Social History Tobacco UseTypesPacks/DayYears UsedDateSmoking Tobacco: NeverSmokeless Tobacco: NeverAlcohol UseStandard Drinks/WeekCommentsNever0 (1 standard drink = 0.6 oz pure alcohol)caffeine: 1-2 cups per day, coffee and [id number] Health Literacy AnswerDate RecordedHow often do you [...] relatives?Once a week12/29/2024How often do you attend protestant or sikh services?Patient hyvfcqrm31/03/2025Do you belong to any clubs or organizations such as protestant groups, unions, Ali or athletic leodan ups, or school groups?No12/29/2024How often do you attend meetings of the clubs or organizations you belong to?Patient utrxtfpt62/03/2025re you , , , , never , [...] Questionnaire-2 Score0 07/30/2025[facility] [place] of Occupational Health - Occupational Stress QuestionnaireAnswerDate RecordedDo you feel stress - tense, restless, nervous, or anxious, or unable to sleep at night because yourmind is troubled all the time - these days?Only a rimcsg7912/29/2024Exercise Vital SignAnswerDate Recorded On average, how many [...] steady place to sleep or slept in [facility] (including now)?No09/19/2023Housing Stability Vital SignAnswerDate RecordedIn [...] have received?High school /29/2023 Estimated Date of BqporkxaWbodzytsMka24/03/2026ased on last menstrual period of 02/21/2025Sex and Gender InformationValueDate RecordedSex Assigned at BirthNot on fileLegal TdvVbmiqe91/15/2023 7:18 PM EDTGender IdentityNot on file Sexual OrientationNot on 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 Not on fileNot on fileNot on filedocumented as of this encounter Plan of Treatment DateTypeDepartmentCare Team (Latest Contact Info)Ntcasutxmdv54/26/2026 11:20 AM ESTPostpartum Visit [facility] [address] [place] [address] Nathan Pop DO [address] [place] [address] [place] [address] documented as of this encounter Procedures Procedure NamePriorityDate/TimeAssociated DiagnosisCommentsTBH DRUG SCREEN RAPID (URINE)Nfllwah4111/09/2025 7:05 AM EST [facility] CBC WITH PLATELET NO ISHEGPEZLTXQQqqwewp15/15/2025 5:29 AM EST documented in this encounter Results * [facility] DRUG SCREEN RAPID (URINE) (11/09/2025 7:05 AM EST)ComponentValueRef Range Test MethodAnalysis TimePerformed AtPathologist SignatureCANNABINOID SCREEN URINENEGATIVENEGATIVETBHPHENCYCLIDINE SCREEN URINENEGATIVENEGATIVETBHCOCAINE SCREEN URINENEGATIVENEGATIVETBHMETHAMPHETAMINES SCREEN URINENEGATIVENEGATIVE TBHOPIATE SCREEN URINENEGATIVENEGATIVETBHAMPHETAMINE SCREEN URINENEGATIVE NEGATIVETBHBENZODIAZEPINES SCREEN URINENEGATIVENEGATIVETBHTRICYCLIC ANTIDEPRESSANT URINENEGATIVENEGATIVETBHMETHADONE SCREEN URINENEGATIVENEGATIVE TBHBARBITURATES SCREEN URINENEGATIVENEGATIVETBHOXYCODONE SCREEN URINENEGATIVE NEGATIVETBHBUPRENORPHINE SCREEN URINENEGATIVENEGATIVETBHComment: DRUG CLASS TEST SYSTEM CUT-OFF CONCENTRATIONS ARE FOLLOWS: AMP (Amphetamine): 500 ng/mL BAR (Barbiturates): 200 ng/mL BZO (Benzodiazepines): 150 ng/mL BUP (Buprenorphine): 10 ng/mL ROSALIA (Cocaine): 150 ng/mL mAMP (Methamphetamine): 500 ng/mL MTD (Methadone): 200 ng/mL OPI (Opiates): 100 ng/mL OXY (Oxycodone): 100 ng/mL PCP (Phencyclidine): 25 ng/mL THC (Cannabinoids): 50 ng/mL TCA (Trycyclic Antidepressants): 300 ng/mL Specimen (Source)Anatomical Location / LateralityCollection Method / Volume Collection TimeReceived Time11/09/2025 7:05 AM EST11/09/2025 9:42 AM EST Narrative [facility] - 11/09/2025 10:17 AM EST Authorizing ProviderResult TypeResult StatusCorey Kiesha DOCLINISYNCFinal Result Performing OrganizationAddressCity/State/ZIP CodePhone Number JENNIFER CRUZH * (ABNORMAL) HP CBC WITH PLATELET NO DIFFERENTIAL (11/09/2025 5:29 AM EST) ComponentValueRef RangeTest MethodAnalysis TimePerformed AtPathologist SignatureTBH WBC12.7(H)4.0 - 11.0 10 3/uLTBHTBH RBC4.10(L)4.20 - 5.40 10 6/uL TBHTBH HGB12.512.0 - 16.0 g/dLTBHTBH HCT36.736.0 - 48.0 %TBHTBH MCV89.581.0 - 99.0 fLTBHTBH MCH30.526.7 - 34.0 pgTBHTBH MCHC34.129.9 - 35.2 g/dLTBHTBH RDW 12.611.0 - 15.0 %TBHTBH IUU144208 - 450 10 3/uLTBHTBH MPV10.69.5 - 13.5 fLTBH Specimen (Source)Anatomical Location / LateralityCollection Method / Volume Collection TimeReceived Time11/09/2025 5:29 AM EST11/09/2025 7:12 AM EST Narrative [facility] - 11/09/2025 7:19 AM EST Authorizing ProviderResult TypeResult StatusCorey Kiesha DOCLINISYNCFinal Result Performing OrganizationAddressCity/State/ZIP CodePhone Number JENNIFER TB documented in this encounter Visit Diagnoses Not on filedocumented in this encounter Care Teams Team MemberRelationshipSpecialtyStart DateEnd Date Eliceo Beltran DO [address] [place] [address] PCP - GeneralFaorly Medicine02/14/24 Eliceo Beltran DO [address] [place] [address] PCP - Medical [employer]07/27/2412documented as of this encounter
--- OUTSIDE RECORDS SUMMARY | 2025-11-13 08:10 | XMS_ITS | Encounter Summary ---
Author Organization [facility] Address [address] [place] [address] Care Team Providers Care Automobile Tester Name Role Phone NirajEliceo kauffman Primary Care Provider [phone] Charlottecarol Eliceo Hurtado DO Unavailable [phone] Encounter Details DateTypeDepartmentCare Team (Latest Contact Info)Pdseddglvtm73/16/2025Clinisync Result Encounter [facility] Unsolicited Nathan Pop DO [address] [place] [address] Social History Tobacco UseTypesPacks/DayYears UsedDateSmoking Tobacco: NeverSmokeless Tobacco: NeverAlcohol UseStandard Drinks/WeekCommentsNever0 (1 standard drink = 0.6 oz pure alcohol)caffeine: 1-2 cups per day, coffee and [id number] Health Literacy AnswerDate RecordedHow often do you [...] week12/29/2024How often do you attend holiness or sikh services?Patient covjrizo01/03/2025Do you belong to any clubs or organizations such as holiness groups, unions, [employer] or athletic leodan ups, or school groups?No12/29/2024How often do you attend meetings of the clubs or organizations you belong to?Patient ltlgydrp57/03/2025re you , , , , never , [...] RecordedPatient Health Questionnaire-2 Score0 07/30/2025[facility] [place] of Occupational Health - Occupational Stress QuestionnaireAnswerDate RecordedDo you feel stress - tense, restless, nervous, or anxious, or unable to sleep at night because yourmind is troubled all the time - these days?Only a htjnvn9312/29/2024Exercise Vital SignAnswerDate Recorded On average, how many [...] steady place to sleep or slept in [facility] (including now)?No09/19/2023Housing Stability Vital SignAnswerDate RecordedIn [...] have received?High school /29/2023 Estimated Date of IvwyfnlsYlwkjmqlHvd33/03/2026ased on last menstrual period of 02/21/2025Sex and Gender InformationValueDate RecordedSex Assigned at BirthNot on fileLegal PbdEqfusg57/15/2023 7:18 PM EDTGender IdentityNot on file Sexual OrientationNot on 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 Not on fileNot on fileNot on filedocumented as of this encounter Plan of Treatment DateTypeDepartmentCare Team (Latest Contact Info)Vnonyuadmfn75/26/2026 11:20 AM ESTPostpartum Visit [facility] [address] [place] [address] Nathan Pop DO [address] [place] [address] documented as of this encounter Procedures Procedure NamePriorityDate/TimeAssociated DiagnosisCommentsALL CBC WITH AUTO TYCBMwaptiw14/16/2025 5:55 AM EST documented in this encounter Results * (ABNORMAL) ALL CBC WITH AUTO DIFF (11/10/2025 5:55 AM EST)ComponentValueRef RangeTest MethodAnalysis TimePerformed AtPathologist SignatureTBH WBC13.5(H) 4.0 - 11.0 10 3/uLTBHTBH RBC3.69(L)4.20 - 5.40 10 6/uLTBHTBH HGB11.1(L)12.0 - 16.0 g/dLTBHTBH HCT33.1(L)36.0 - 48.0 %TBHTBH MCV89.781.0 - 99.0 fLTBHTBH MCH 30.126.7 - 34.0 pgTBHTBH MCHC33.529.9 - 35.2 g/dLTBHTBH RDW12.611.0 - 15.0 % TBHTBH [id number] - 450 10 3/uLTBHTBH MPV9.99.5 - 13.5 fLTBHNEUTROPHILS PERCENT AUTO71.543.0 - 75.0 %TBHLYMPHOCYTES PERCENT AUTO18.2(L)20.5 - 60.0 %TBH MONOCYTES PERCENT AUTO7.31.7 - 12.0 %TBHTBH EO %1.00.9 - 7.0 %TBHBASOPHILS PERCENT AUTO0.40.2 - 2.0 %TBHIMMATURE GRANULOCYTES PCT AUTO1.6(H)0.0 - 0.5 % TBHNEUTROPHILS ABSOLUTE AUTO9.7(H)1.4 - 6.5 10 3/uLTBHLYMPHOCYTES ABSOLUTE AUTO2.51.2 - 3.8 10 3/uLTBHMONOCYTES ABSOLUTE AUTO1.0(H)0.3 - 0.8 10 3/uLTBH TBH EO #0.10.0 - 0.7 10 3/uLTBHBASOPHILS ABSOLUTE AUTO0.10.0 - 0.1 10 3/uLTBH IMMATURE GRANULOCYTES ABS AUTO0.21(H)0.00 - 0.03 10 3/uLTBHSpecimen (Source) Anatomical Location / LateralityCollection Method / VolumeCollection Time Received Time11/10/2025 5:55 AM EST11/10/2025 6:09 AM EST Narrative [facility] - 11/10/2025 6:14 AM EST Authorizing ProviderResult TypeResult StatusCorey Kiesha DOCLINISYNCFinal Result Performing OrganizationAddressCity/State/ZIP CodePhone Number [facility] documented in this encounter Visit Diagnoses Not on filedocumented in this encounter Care Teams Team MemberRelationshipSpecialtyStart DateEnd Date Eliceo Beltran DO [address] [facility] [address] [place] [address] PCP - GeneralFamily Medicine02/14/24 Eliceo Beltran DO [address] [place] [address] PCP - Medical [employer]07/27/2412documented as of this encounter
--- OUTSIDE RECORDS SUMMARY | 2025-11-13 08:10 | XMS_ITS | Patient Health Record ---
Author Organization [facility] Address [address] [place] [address] Care Team Providers Care Ore Washer Name Role Phone Cruz Rodríguez Primary Care [...] Quad PFS (0.5mL Admin) 18 y/o & jcpzhAuemayw98/30/0218Nssnblsh4948 Fluzone Quad PFS (0.5mL Admin) 6 months & unkjfTknbqpb17/17/3463Preqpamz4378 Fluzone, 6mo & older, Quad MDV (0.5mL Admin)Ulhnrlx8707/16/20234004Kgmxihje3862 Fluzone, 6mo & older, Quad PFS (0.5mL Admin)Oowbfkd19/18/2023Contraindications z2023 Fluzone, 6mo & older, Quad PFS (0.5mL Admin)Zorwwiy12/20/2024Refused Social History Tobacco Use: Social History Observation [...] Status W/U Status Risk Notes Problem Tachycardia (6918386) Tachycardia (R00.0) ActiveconfirmedProblemObesity ([id number])Obesity (BMI 30-39.9) (E66.9)Active confirmed Plan Of Treatment No Information Insurance Providers Payer Name Payer Address Payer Phone Subscriber Number Group Number Insured Name Patient Relationship to Insured Coverage Start Date Coverage End Date [facility] [address] [place] [address] [id number] Driss Woodruff Self - patient is the insured Medical [employer] [facility] [address] [place] [phone] [id number], AlexisSelf - patient is the insured Medical (General) History Medical History History ICD Code Tachycardia R00.0 Surgical History Surgery Date(Month/Year) right shoulder surgery endometriosisappendectomyHospitalization History Reason Date(Month/Year) surgeries childbirth
--- OUTSIDE RECORDS SUMMARY | 2025-11-13 08:10 | XMS_ITS | Clinical Summary ---
Author Organization [facility] Address [address] [place] [address] Care Team Providers Care Track Laying Machine Operator Name Role Phone Eliceo Beltran DO Primary Care Provider [phone] Eliceo Beltran DO Unavailable [phone] Allergies No known active allergies Medications MedicationSigDispense QuantityRefillsLast FilledStart DateEnd DateStatus metoprolol succinate XL (Toprol-XL) 25 MG 24 hr tablet Indications:Hypertension, unspecified typeTake 1 tablet by mouth daily 90 tablet 5Active Vit-Fe Fumarate-FA ( Vitamins) 28-0.8 MG tablet Indications:, unspecified gestational age ([facility]),Encounter for supervision of normal first in first trimester ([facility])Take 1 tablet by mouth Daily 30 tablet 110/6Active Alcohol Swabs (Alcohol Prep Pad) 70 % pads Indications:Gestational diabetes mellitus (GDM), antepartum, gestational diabetes method of control unspecified([facility]),Elevated glucose tolerance test Apply 1 Pad topically Daily Use four times daily to check FSBS. 150 each 5Active Blood Glucose Monitoring Suppl (D-Care Glucometer) w/Device kit Indications:Gestational diabetes mellitus (GDM), antepartum, gestational diabetes method of control unspecified([facility]),Elevated glucose tolerance test1 kit Daily Use four times daily to check FSBS. In the morning prior to breakfast & 1 hour after each meal for a total of 4times daily. 1 kit 506Active insulin glargine-yfgn (Semglee-yfgn) 100 UNIT/ML pen Inject 13 Units under the skin at kxfmtki1909/15/2025tive labetalol (Normodyne) 200 MG tablet Indications:Gestational HypertensionTake [...] DateDiagnosed DateH/O pre-eclampsia in prior , currently ([facility])10/29/2025H/O premature mcqntaci05 weeks gestation of ([facility])10/14/2025Third trimester ([facility])10/14/2025 Mbszxvip67/29/0816Uvdynubleee99/26/2024Obesity (BMI 30-39.9)02/19/2024cquired equinus deformity of foot03/29/2023isplacement of cervical intervertebral disc without akqkzayoje55/04/3370Oazuqpluepwu94/04/8771Lttpoqeflifup94/04/2023 Almgqvoytmyif38/04/5798Arxijwpkfdqj22/04/2023 Assessment & Plan (07/30/2025 4:00 PM EDT): Record Blood Pressures 2-4 times weekly and record. Return with readings at next appointment. Call with readings if sees significant changes Intractable migraine without aura and with status cfkhtklqfir65/04/2023Migraines 03/29/2023hronic pelvic pain in aiucbg8303/29/2023ain in female genitalia on flwdfoqfhrz33/04/2023ain on dknqqruprs88/04/2023anic obvtnqkh74/04/2023 Patellofemoral disorders, left knee03/29/2023atellofemoral disorders, right knee03/29/2023osterior calcaneal wjdridmrx99/04/2023Scapular dyskinesis 03/29/20235436Nnhjxyjvf44/04/2023Seasonal allergic rhinitis due to jbhuzg4703/29/2023 Tachycardia, wnavzylraz81/04/2023Tension ytwjiplr74/04/2023Vitamin B12 /04/2023Vitamin D ihguiblheq42/04/2023hronic right shoulder pain 03/29/2023Estimated Date of QiyjwqdiLqxueawtAoh73/03/2026ased on last menstrual period of 02/21/2025 Encounters DateTypeDepartmentCare SselVvofqqtubih61/18/2025Patient Outreach [facility] [address] [place] [address] Zenobia Forrest LPN 11/10/2025linisync Result Encounter NOMS External Department Unsolicited Nathan Pop, DO 11/09/2025linisync Result Encounter NOMS External Department Unsolicited Nathan Pop, DO 11/07/2025linisync Result Encounter NOMS External Department Unsolicited Steph Keane NP 11/04/2025 2:10 PM ESTRoutine [facility] MOODY [address] [place] [address] Nathan Pop, DO Third trimester ([facility]); 36 weeks gestation of ([facility])11/04/2025bstract [facility] OBJUSTINE [address] [place] [address] Nathan Pop, DO 11/04/2025amboo flowsheet [facility]LLEN [address] [facility] [place] [address] Nathan Pop, DO 11/02/2025Telephone [facility] [address] [place] [address] Nathan Pop, DO 5Clinisync Result Encounter NOMS External Department Unsolicited Steph Keane, ACCOUNT COORDINATOR 10/29/2025 9:00 AM ESTRoutine [facility] [address] [place] [phone] Nathan Pop, DO Third trimester ([facility]); 35 weeks gestation of ([facility]); H/O pre-eclampsia in prior , currently ([facility]); H/O premature qixywjvs41/04/2025Clinisync Result Encounter NOMS External Department Unsolicited Nathan Pop, DO 10/29/2025Telephone [facility] [address] [place] [phone] Candis Yanes LPN 10/29/2025amboo flowsheet [facility] [address] [place] [address] Nathan Pop, DO 10/26/2025Telephone [facility] [place] [address] [place] [address] Rossy Davila MA 10/25/20257082Ugbeir37/29/2025Clinisync Result Encounter NOMS External Department Unsolicited Steph Keane, ACCOUNT COORDINATOR 10/17/2025linisync Result Encounter NOMS External Department Unsolicited Steph Keane, ACCOUNT COORDINATOR 10/16/2025External Result Encounter NOMS External Department Unsolicited Nathan Pop, DO 10/16/2025linisync Result Encounter NOMS External Department Unsolicited Nathan Pop, DO 10/14/2025 3:30 PM ESTRoutine [facility] [address] [place] [phone] Nathan Pop, DO 33 weeks gestation of ([facility]); Third trimester ([facility])10/14/2025amboo flowsheet [facility] [address] [place] [address] Nathan Pop, DO 10/13/20258234Cmgchj79/17/2025Clinisync Result Encounter NOMS External Department Unsolicited Nathan Pop, DO 10/11/2025linisync Result Encounter NOMS External Department Unsolicited Nathan Pop, DO 10/09/2025bstract [facility] Wallace [facility] [place] [address] Nathan Pop, DO 5Clinisync Result Encounter NOMS External Department Unsolicited Stehp Keane, DEVYN 10/01/2025Telephone NOMShalonda [place] [address] Nathan Pop, DO 09/30/2025 3:00 PM ESTRoutine NOMShalonda [place] [address] Nathan Pop, DO Third trimester ([facility]); 31 weeks gestation of ([facility]); Pre-eclampsia in third trimester ([facility])09/30/2025amboo flowsheet NOMShalonda Wallace [facility] [place] [address] Nathan Pop, DO 09/26/2025linisync Result Encounter NOMS External Department Unsolicited Steph Keane, ACCOUNT COORDINATOR 09/23/20250307Wjbdtd70/25/2025linisync Result Encounter NOMS External Department Unsolicited Steph Keane, ACCOUNT COORDINATOR 09/16/2025 3:20 PM EDTRoutine NOMShalonda [place] [address] Nathan Pop, DO 29 weeks gestation of ([facility]); Third trimester ([facility]); Hypertension affecting , antepartum ([facility]); Gestational diabetes mellitus (GDM), antepartum, gestational diabetes method of control unspecified[facility]09/16/2025amboo flowsheet [facility] [place] [facility] [address] [place] [phone] Nathan Pop, DO 09/11/2025bstract [facility] [address] [place] [phone] Nathan Pop, DO 09/09/20254123Cocrfr43/09/2025 3:50 PM EDTRoutine [facility] [address] [place] [phone] Steph Keane NP Hypertension affecting , antepartum ([facility]) (Primary Dx); 27 weeks gestation of ([facility]); Second trimester ([facility])09/03/2025linisync Result Encounter NOMS External Department Unsolicited Nathan Pop, DO 09/03/2025amboo flowsheet [facility] [address] [place] [phone] Steph Keane NP 09/02/20257623Sfrqbi13/04/2025linisync Result Encounter NOMS External Department Unsolicited Steph Keane NP 08/28/2025bstract [facility] [address] [place] [address] Eliceo Beltran DO 08/28/2025Telephone [facility] [place] [facility] [address] [place] [phone] Radha Rahman MA 08/27/2025 3:20 PM EDTRoutine [facility] [address] [place] [phone] Steph Keane, DEVYN 26 weeks gestation of ([facility]); Second trimester ([facility]); induced hypertension, antepartum ([facility]); Gestational diabetes mellitus (GDM) in second trimester, gestational diabetes method of control unspecified ([facility])08/27/2025linisync Result Encounter NOMS External Department Unsolicited Steph Keane, DEVYN 08/27/2025linisync Result Encounter NOMS External Department Unsolicited Steph Keane, DEVYN 08/27/2025amboo flowsheet [facility] [address] [facility] [place] [address] Steph Keane, DEVYN 08/25/2025linisync Result Encounter NOMS External Department Unsolicited Provider, Generic External Data 08/20/2025bstract [facility] [address] [place] [address] Nathan Pop DO 08/20/2025Telephone [facility] [address] [place] [address] Steph Keane, ACCOUNT COORDINATOR 08/17/2025bstract [facility] [address] [place] [phone] Eliceo Beltran, 08/17/2025bstract [facility] [address] [place] [phone] Eliceo Beltran, 08/17/2025Telephone [facility] [address] [place] [address] Nathan Pop DO from Last 3 Months Immunizations ImmunizationAdministration DatesNext DueDTP / HiB08/01/1996,1995, 1995DTaP, Yfmlherzoyb69/08/2000,12/29/1997HPV, Trjhgryemnlp80/17/2014, 05/04/2014,2014Hep A, Adult09/11/2014,2014Hep B, Adolescent or Vjsfqannm56/06/1996,1995,1995IPV05/03/2000Influenza, seasonal, injectable, preservative free09/11/2014MMR05/03/2000,08/01/1996Meningococcal GIU6P5604/03/2007OPV08/01/1996,1995,1995Tdap2014 Family History Medical HistoryRelationNameCommentsAnemiaFatherColon cancerFatherCancerMaternal GrandfatherbutchHypertensionMaternal GrandfatherbutchBreast cancerMaternal GrandmotherHypertensionMotherdarleneColon cancerPaternal GrandfatherRelationName StatusCommentsFatherDeceasedMaternal GrandfatherbutchMaternal GrandmotherMother darleneAlivePaternal GrandfatherPaternal GrandmotherAlive Social History Tobacco UseTypesPacks/DayYears UsedDateSmoking Tobacco: NeverSmokeless Tobacco: Never Tobacco Cessation:Counseling Given: Not Answered Alcohol UseStandard Drinks/WeekCommentsNever0 (1 standard drink = 0.6 oz pure alcohol)caffeine: 1-2 cups per day, coffee and jyzP8267 Health LiteracyAnswer Date RecordedHow often do you [...] often do you attend roman catholic or muslim services?Patient mopdeurt68/03/2025Do you belong to any clubs or organizations such as roman catholic groups, unions, fraternal or athletic leodan ups, or school groups?No12/29/2024How often do you attend meetings of the clubs or organizations you belong to?Patient wveltvpu69/03/2025re you , , , , never , [...] hard at all12/29/2024PHQ-2AnswerDate RecordedPatient Health Questionnaire-2 Score0 11/12/2025[facility] [place] [facility] - Occupational Stress QuestionnaireAnswerDate RecordedDo you feel stress - tense, restless, nervous, or anxious, or unable to sleep at night because yourmind is troubled all the time - these days?Only a wzehpi0012/29/2024Exercise Vital SignAnswerDate Recorded On average, how many [...] steady place to sleep or slept in oglethorpeelter (including now)?No09/19/2023Housing Stability Vital SignAnswerDate RecordedIn the [...] the highest degree you have received?High school lxmymrpl80/29/2023 Estimated Date of KibxdmetGsexzdwfOgp75/03/2026ased on last menstrual period of 02/21/2025Sex and Gender InformationValueDate RecordedSex Assigned at BirthNot on fileLegal MwaHgbcfr53/15/2023 7:18 PM EDTGender IdentityNot on file Sexual OrientationNot on 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 Not on fileNot on fileNot on file Last Filed Vital Signs Vital SignReadingTime TakenCommentsBlood Qydewnhm873/8412 2:04 PM EST Qcids080407/30/2025 3:36 PM AVCQebmgxfahtj68.2 ??C (97.1 ??F)07/30/2025 3:36 PM EDTRespiratory Cupm843512/23/2022 4:16 PM ESTOxygen Bertyqhhhp60%07/30/2025 3:36 PM EDTInhaled Oxygen Concentration--Lssfpd49.6 kg (171 lb)11/04/2025 2:04 PM EST Nqqlhz244.5 cm (5' 2 )07/30/2025 3:36 PM EDTBody Mass Index31.2809 3:36 PM EDT Plan of Treatment DateTypeDepartmentCare Team (Latest Contact Info)Ulyjqkppsib37/26/2026 11:20 AM ESTPostpartum Visit [facility] [address] [place] [address] Nathan Pop, [address] [place] [address] Health MaintenanceDue DateLast DoneCommentsCOVID-19 Vaccine ( season) 2025Influenza Vaccine (#1)/Pap Smear08/18/2027 08/18/2024, 08/15/2023, 06/20/2022, Additional history existsCervical Cancer Fhiwcuaxw98/09/2028HPV/Iuvljg42neumococcal Vaccine: Pediatrics (0 to 5 Years) and At-Risk Patients (6 to 64 Years)Aged OutNo longer eligible based on patient's age to complete this topic Procedures Procedure NamePriorityDate/TimeAssociated DiagnosisCommentsALL CBC WITH AUTO VGEDUmiukqu53/16/2025 5:55 AM EST [facility] DRUG SCREEN RAPID (URINE)Mxthtnu6711/09/2025 7:05 AM EST [facility] CBC WITH PLATELET NO CQMXOGMAFQLYAsdvcwc65/15/2025 5:29 AM EST US OB BPP W NON-OGSOZU8711/07/2025 2:10 PM EST POCT URINALYSIS ASNYTDDEGreygdz46/10/2025 2:14 PM EST 36 weeks gestation of ([facility]) US OB BPP W NON-WYXIZD2310/31/2025 12:16 PM EST POCT URINALYSIS HBPPCNQQQnrketv67/04/2025 9:38 AM EST Third trimester ([facility]) STREP GP B CULTURE+AOFEUvhlfxl35/04/2025 9:28 AM EST US OB BPP W NON-IVNPWH6110/24/2025 10:38 AM EST US OB BPP W NON-OLSCWO0710/17/2025 9:22 AM EST URINE CULTURE - PFJPNpbjvth27/21/2025 1:30 PM EST [facility] UA (CLEAN/CATCH) OVEN TECHNICIAN/MICRO IF IND.Kzwobvh8110/16/2025 1:30 PM EST CULTURE, URINE, SNTNEEGJMIR44/21/2025 1:30 PM EST POCT URINALYSIS RKRYLAZNSurzjxq24/19/2025 3:40 PM EST 33 weeks gestation of ([facility]) Third trimester ([facility]) CCF UGKFQsyblal03/17/2025 8:28 PM EST SRMCOH PROTHROMBIN TIME INR W/O ZOKTLulylvi82/17/2025 8:28 PM EST ALL XGQBsxbvut25/17/2025 8:28 PM EST CCF KZPUhwcphh06/17/2025 8:28 PM EST CCF LNACsezqzz36/17/2025 8:28 PM EST ALL URIC KCFHYqksmvo66/17/2025 8:28 PM EST [facility] WGWVKVZAPXAqasgcw29/17/2025 8:28 PM EST ALL UDRMnpnuzr99/17/2025 8:28 PM EST ALL CBC WITH AUTO VFMCUmrxuat46/17/2025 8:28 PM EST [facility] URINE T PROTEIN CREAT KMCNPTwawasx57/17/2025 7:05 PM EST [facility] UA (CLEAN/CATCH) OVEN TECHNICIAN/MICRO IF IND.Xdwunan0510/12/2025 7:05 PM EST US OB BPP W NON-FVSPKG6610/11/2025 1:46 PM EST US OB BPP W NON-SSSPIC0110/03/2025 11:36 AM EST POCT URINALYSIS LAGVJUBRRqhotlj28/05/2025 3:13 PM EST Third trimester ([facility]) US OB BPP W NON-MLVACU9109/26/2025 2:50 PM EDT US OB BPP W NON-AQJWGB4409/19/2025 12:17 PM EDT POCT URINALYSIS SZEQFJGXZqkurmt27/22/2025 4:09 PM EDT 29 weeks gestation of ([facility]) Third trimester ([facility]) ALL CBC WITH AUTO NPORVrxljge11/09/2025 5:15 PM EDT MHPT GMEXJAXWXBOslpadk37/09/2025 5:15 PM EDT CCF VFDQMvbcntt63/09/2025 5:15 PM EDT SRMCOH PROTHROMBIN TIME INR W/O AVGLFzxnemh29/09/2025 5:15 PM EDT CCF BJHVjzjwwi74/09/2025 5:15 PM EDT CCF SEAEpzxwat15/09/2025 5:15 PM EDT ALL URIC SMBXEptdkul25/09/2025 5:15 PM EDT TB[facility] CXDMBOHWMLCpjrray52/09/2025 5:15 PM EDT ALL RFOUkdhlrb19/09/2025 5:15 PM EDT [facility] URINE T PROTEIN CREAT STXINJepogrt39/09/2025 5:05 PM EDT POCT URINALYSIS QBWDHZMKIdxxrgz64/09/2025 4:26 PM EDT 27 weeks gestation of ([facility]) [facility] TOTAL PROTEIN 24 HOUR DQXIFZanokrm34/04/2025 8:00 AM EDT US OB BPP W NON-JJOTGJ0408/27/2025 6:02 PM EDT [facility] URINE T PROTEIN CREAT YAMWKHbyhffe33/02/2025 5:50 PM EDT CCF UTQHmiqyii20/02/2025 5:00 PM EDT CCF YIAJYemdeff72/02/2025 5:00 PM EDT SRMCOH PROTHROMBIN TIME INR W/O EDCLMgszsiy35/02/2025 5:00 PM EDT ALL DAJWvvcnru57/02/2025 5:00 PM EDT CCF ZLUWtfszre45/02/2025 5:00 PM EDT ALL URIC LMARWglcuzp25/02/2025 5:00 PM EDT TBH FUZBCRTBOIVfaoapj85/02/2025 5:00 PM EDT ALL RAHLhhrlrf59/02/2025 5:00 PM EDT ALL CBC WITH AUTO BPGNOxfvzlp59/02/2025 5:00 PM EDT POCT URINALYSIS NYSRLVFZRonqibc98/02/2025 3:53 PM EDT 26 weeks gestation of ([facility]) URINE CULTURE, CGAGZJCWzsiyai90/30/2025 8:10 AM EDT PAP PHGLVYxunpgd08/23/2024 12:00 AM EDTTHINPREP PAP AND HPV MRNA E6/E7 W/RFL HPV 16,18/66Fbcjzux56/09/2023 4:00 PM EDT Well woman exam with routine gynecological exam from Last 3 Months or Most Recently Relevant to Health Maintenance Results * (ABNORMAL) ALL CBC WITH AUTO DIFF (11/10/2025 5:55 AM EST) Only the most recent of4 resultswithin the time period is included. ComponentValueRef RangeTest MethodAnalysis TimePerformed AtPathologist Signature [facility] WBC13.5(H)4.0 - 11.0 10 3/uLTBHTBH RBC3.69(L)4.20 - 5.40 10 6/uLTBHTBH HGB 11.1(L)12.0 - 16.0 g/dLTBHTBH HCT33.1(L)36.0 - 48.0 %TBHTBH MCV89.781.0 - 99.0 fLTBHTBH MCH30.126.7 - 34.0 pgTBHTBH MCHC33.529.9 - 35.2 g/dLTBHTBH RDW12.611.0 - 15.0 %TBHTBH KGZ276639 - 450 10 3/uLTBHTBH MPV9.99.5 - 13.5 fLTBHNEUTROPHILS PERCENT AUTO71.543.0 - 75.0 %TBHLYMPHOCYTES PERCENT AUTO18.2(L)20.5 - 60.0 %[facility] MONOCYTES PERCENT AUTO7.31.7 - 12.0 %TBHTBH EO %1.00.9 - 7.0 %TBHBASOPHILS PERCENT AUTO0.40.2 - 2.0 %TBHIMMATURE GRANULOCYTES PCT AUTO1.6(H)0.0 - 0.5 %[facility] NEUTROPHILS ABSOLUTE AUTO9.7(H)1.4 - 6.5 10 3/uLTBHLYMPHOCYTES ABSOLUTE AUTO2.5 1.2 - 3.8 10 3/uLTBHMONOCYTES ABSOLUTE AUTO1.0(H)0.3 - 0.8 10 3/uLTBHTBH EO #0.1 0.0 - 0.7 10 3/uLTBHBASOPHILS ABSOLUTE AUTO0.10.0 - 0.1 10 3/uLTBHIMMATURE GRANULOCYTES ABS AUTO0.21(H)0.00 - 0.03 10 3/uLTBHSpecimen (Source)Anatomical Location / LateralityCollection Method / VolumeCollection TimeReceived Time 11/10/2025 5:55 AM EST11/10/2025 6:09 AM EST Narrative [facility] - 11/10/2025 6:14 AM EST Authorizing ProviderResult TypeResult StatusCorey Kiesha DOCLINISYNCFinal Result Performing OrganizationAddressCity/State/ZIP CodePhone Number CLINIS[facility]NC [facility] * [facility] DRUG SCREEN RAPID (URINE) (11/09/2025 7:05 AM [...] DOCLINISYNCFinal Result Performing OrganizationAddressCity/State/ZIP CodePhone Number [facility] * (ABNORMAL) HP CBC WITH PLATELET NO DIFFERENTIAL (11/09/2025 5:29 AM EST) ComponentValueRef RangeTest MethodAnalysis TimePerformed AtPathologist SignatureTBH WBC12.7(H)4.0 - 11.0 10 3/uLTBHTBH RBC4.10(L)4.20 - 5.40 10 6/uL TBHTBH HGB12.512.0 - 16.0 g/dLTBHTBH HCT36.736.0 - 48.0 %TBHTBH MCV89.581.0 - 99.0 fLTBHTBH MCH30.526.7 - 34.0 pgTBHTBH MCHC34.129.9 - 35.2 g/dLTBHTBH RDW 12.611.0 - 15.0 %TBHTBH RYW238166 - 450 10 3/uLTBHTBH MPV10.69.5 - 13.5 fLTBH Specimen (Source)Anatomical Location / LateralityCollection Method / Volume Collection TimeReceived Time11/09/2025 5:29 AM EST11/09/2025 7:12 AM EST Narrative [facility] - 11/09/2025 7:19 AM EST Authorizing ProviderResult TypeResult StatusCorey Kiesha DOCLINISYNCFinal Result Performing OrganizationAddressCity/State/ZIP CodePhone Number [facility] * US OB BPP W NON-STRESS (11/07/2025 2:10 PM EST) Only the most recent of9 resultswithin the time period is included. Anatomical RegionLateralityModalityOtherSpecimen (Source)Anatomical Location / LateralityCollection Method / VolumeCollection TimeReceived Time11/07/2025 2:10 PM EST Narrative 11/07/2025 2:12 PM EST [facility] ?[address] ? [place], [facility] ? Ultrasound Report ? Signed ? Patient: MCCONEGLY,DRISS M ?MR#: [id number] ?? : 1995 ?Acct:[id number] ?? Age/Sex: 30 / F ?ADM Date: 11/07/25 ?? Loc: US ? Attending Dr: Steph Keane ? Ordering Physician: Steph Keane ?? Date of Service: 11/07/25 ?? Procedure(s): US OB BPP w non-stress ?? Accession Number(s): [id number] ? cc: Steph Keane; Yomaira BELTRAN ? [facility] ? [address] ? [place] [address] ? Patient Name: ?? DRISS GAMA ? MRN: [facility]:[id number] ? date: 1995 ?Sex: F ?? Assigned Patient Location: ?? Current Patient Location: ? Accession/Order Number: [id number] ?? Exam Date: 11/07/2025 ??10:09 ?Report Date: [...] Dictation Location: RADIO-PC-17 ? Electronically authenticated by: [id number] ??Y ?? Date: 11/07/2025 ??14:10 ? Dictated By: ?Will Faria M.D. ? Signed By: ?11/07/ 1412 ? DD/ 1410 ? TD/TT: ? Top Lift Compressor: Procedure Note Radiology, Radiologist, MD - 11/07/2025 [place] [address] Ultrasound Report Signed Patient: DRISS GAMA MMR#: [id number] : 1995Acct:[id number] Age/Sex: 30 / FADM Date: 11/07/25 Loc: US Attending Dr: Steph Keane Ordering Physician: Steph Keane Date of Service: 11/07/25 Procedure(s): US OB BPP w non-stress Accession Number(s): [id number] cc: Steph Keane; Yomaira BELTRAN The [address] [address] Patient Name: DRISS GAMA MRN: [facility]:[id number] date: 1995 Sex: F Assigned Patient Location: US Current Patient Location: Accession/Order Number: [id number] Exam Date: 11/07/2025 10:09 Report Date: 11/07/2025 [...] Faria M.D. 11/07/2025 2:10 PM Dictation Location: [place] [address] Electronically authenticated by: [id number] Y Date: 4:10 Dictated By: Will Faria M.D. Signed By:11/07/251411 DD/ 09 TD/TT: Top Lift Compressor: Authorizing ProviderResult TypeResult StatusSteph Keane NPCLINISYNC IMAGING Final Result * POCT urinalysis dipstick manually resulted (11/04/2025 2:14 PM EST) Only the most recent of7 [...] Location / LateralityCollection Method / VolumeCollection TimeReceived FfzzVhedg54/10/2025 2:14 PM EST Narrative Authorizing ProviderResult TypeResult StatusCorey [...] is noted.TBHSTREP GP B CULTURE+RFLX Performed at: - [facility]+[id number] [place], [place] [id number] GP B CULTURE+RFLXLab Director: Cm Sandoval PhD, Phone: [phone] (Source)Anatomical Location / Laterality Collection Method / VolumeCollection TimeReceived Time10/29/2025 9:28 AM EST 10/29/2025 12:08 PM EST Narrative CLINISYNC - 11/02/2025 4:10 PM EST Authorizing ProviderResult TypeResult StatusCorey Kiesha DOLAB BLOOD ORDERABLES Final ResultPerforming OrganizationAddressCity/State/ZIP CodePhone Number JENNIFER CRUZH * URINE CULTURE - [facility] (10/16/2025 1:30 PM EST)ComponentValueRef RangeTest MethodAnalysis TimePerformed AtPathologist SignatureURINE CULTURE - [facility] ??Urine Culture - [facility] SEEFR [facility] RESULT^[facility] RESULT TBHURINE CULTURE - [facility] SEE SCANNED REPORT, NORMAL^SEE SCANNED REPORT, NORMALTBHSpecimen (Source)Anatomical Location / LateralityCollection Method / VolumeCollection TimeReceived Time10/16/2025 1:30 PM EST10/16/2025 1:44 PM EST Narrative CLINISYNC - 10/18/2025 5:40 PM EST Authorizing ProviderResult TypeResult StatusCorey Kiesha DOLAB BLOOD ORDERABLES Final ResultPerforming OrganizationAddressCity/State/ZIP CodePhone Number JENNIFER CRUZ * (ABNORMAL) [facility] UA (CLEAN/CATCH) OVEN TECHNICIAN/MICRO IF IND. (10/16/2025 1:30 PM EST) Only [...] Performing OrganizationAddressCity/State/ZIP CodePhone Number CLINISYNC TB * Urine culture (10/16/2025 1:30 PM EST)ComponentValueRef RangeTest Method Analysis TimePerformed AtPathologist SignatureSOUTH[facility] NOTE?20,000 colonies/ml mixed ?bacterial skin contaminants ?2 Days 10/18/2025 10:10 AM [facility] CtrSpecimen (Source)Anatomical Location / LateralityCollection Method / VolumeCollection TimeReceived Time Clean-Voided Midstream (Clean Void Midstream)10/16/2025 1:30 PM EST10/16/2025 4:19 PM EST [facility] - 10/18/2025 10:10 AM EST Diagnosis: HIGH BLOOD PRESSURE Comment: Authorizing ProviderResult TypeResult StatusCorey Kiesha DOLAB MICROBIOLOGY - GENERAL ORDERABLESFinal ResultPerforming OrganizationAddressty/[facility] Phone Number [facility] [address] [id number], [facility] [address] [place] [address] * [facility] CREATININE (10/12/2025 8:28 PM EST) Only the most recent of3 resultswithin the time period is included. ComponentValueRef RangeTest MethodAnalysis TimePerformed AtPathologist Signature CREATININE0.740.55 - 1.02 mg/dLTBHTBH EGFR-AF [place]>60>=60 mL/min/1.73m 2TBH TBH EGFR-NON AF [place]>60>=60 mL/min/1.73m 2TBHSpecimen (Source)Anatomical Location / LateralityCollection Method / VolumeCollection TimeReceived Time 10/12/2025 8:28 PM EST10/12/2025 8:39 PM EST Narrative [facility] - 10/12/2025 8:59 PM EST Authorizing ProviderResult TypeResult StatusCorey Kiesha DOCLINISYNCFinal Result Performing OrganizationAddNew [facility]/State/ZIP CodePhone Number [facility] * SRMCOH PROTHROMBIN TIME INR W/O COUM [...] DOCLINISYNCFinal Result Performing OrganizationAddressty/State/ZIP CodePhone Number [facility] * [facility] AST (10/12/2025 8:28 PM EST) Only the most recent of3 resultswithin the time period is included. ComponentValueRef RangeTest MethodAnalysis TimePerformed AtPathologist Signature ASPARTATE AMINO [id number] - 37 U/LTBHSpecimen (Source)Anatomical Location / LateralityCollection Method / VolumeCollection TimeReceived Time10/12/2025 8:28 PM EST10/12/2025 8:39 PM EST Narrative [facility] - 10/12/2025 8:59 PM EST Authorizing ProviderResult TypeResult StatusCorey Kiesha DOCLINISYNCFinal Result Performing OrganizationAdd[facility]/State/ZIP CodePhone Number [facility] * [facility] APTT (10/12/2025 8:28 PM EST) Only the most recent of3 resultswithin the time period is included. ComponentValueRef RangeTest MethodAnalysis TimePerformed AtPathologist Signature PARTIAL THROMBOPLASTIN TIME24.522.3 - 36.2 secTBHSpecimen (Source)Anatomical Location / LateralityCollection Method / VolumeCollection TimeReceived Time 10/12/2025 8:28 PM EST10/12/2025 8:39 PM EST Narrative [facility] - 10/12/2025 8:59 PM EST Authorizing ProviderResult TypeResult StatusCorey Kiesha DOCLINISYNCFinal Result Performing OrganizationAddunm cancer centerCity/State/ZIP CodePhone Number [facility] * [facility] ALT (10/12/2025 8:28 PM EST) Only the most recent of3 resultswithin the time period is included. ComponentValueRef RangeTest MethodAnalysis TimePerformed AtPathologist Signature ALANINE [id number] - 59 U/LTBHSpecimen (Source)Anatomical Location / LateralityCollection Method / VolumeCollection TimeReceived Time10/12/2025 8:28 PM EST10/12/2025 8:39 PM EST Narrative [facility] - 10/12/2025 8:59 PM EST Authorizing ProviderResult TypeResult StatusCorey Kiesha DOCLINISYNCFinal Result Performing OrganizationAdd[facility]/ZIP CodePhone Number [facility] TB * ALL URIC ACID (10/12/2025 8:28 PM EST) Only the most recent of3 resultswithin the time period is included. ComponentValueRef RangeTest MethodAnalysis TimePerformed AtPathologist Signature URIC ACID4.12.6 - 6.0 mg/dLTBHSpecimen (Source)Anatomical Location / Laterality Collection Method / VolumeCollection TimeReceived Time10/12/2025 8:28 PM EST 10/12/2025 8:39 PM EST Narrative [facility] - 10/12/2025 8:59 PM EST Authorizing ProviderResult TypeResult StatusCorey Kiesha DOCLINISYNCFinal Result Performing OrganizationAddV[facility]/State/ZIP CodePhone Number [facility] TB * ALL LDH (10/12/2025 8:28 PM EST) Only the most recent of2 resultswithin the time period is included. ComponentValueRef RangeTest MethodAnalysis TimePerformed AtPathologist Signature LACTATE [id number] - 234 U/LTBHSpecimen (Source)Anatomical Location / LateralityCollection [...] RangeTest MethodAnalysis TimePerformed AtPathologist Signature BLOOD UREA AFXCEVLA94.07.0 - 18.0 mg/dLTBHSpecimen (Source)Anatomical Location / LateralityCollection [...] MethodAnalysis TimePerformed AtPathologist Signature TOTAL PROTEIN URINE ZTLFAG85.5(H)<=11.9 mg/dLTBHCREATININE URINE VLNAIY75.21 20.00 - 300.00 mg/dLTBHPROTEIN CREATININE RATIO URINE0.16TBHSpecimen (Source) Anatomical Location / LateralityCollection Method / VolumeCollection Time Received Time10/12/2025 7:05 PM EST10/12/2025 10:30 PM EST Narrative [facility] - 10/12/2025 10:40 PM EST Authorizing ProviderResult TypeResult StatusCorey [facility] DOCLINISYNCFinal Result Performing OrganizationAddNew [facility]/State/ZIP CodePhone Number [facility] * (ABNORMAL) MHPT FIBRINOGEN (09/03/2025 5:15 PM EDT)ComponentValueRef RangeTest MethodAnalysis TimePerformed AtPathologist GegrhgpavLOWSOXTVPX792(H)200 - 400 mg/dLTBHSpecimen (Source)Anatomical Location / LateralityCollection Method / VolumeCollection TimeReceived Time09/03/2025 5:15 PM EDT1 5:21 PM EDT Narrative [facility] - 09/03/2025 5:45 PM EDT Authorizing ProviderResult TypeResult StatusCorey Kiesha DOCLINISYNCFinal Result Performing OrganizationAddressCity/State/ZIP CodePhone Number JENNIFER CRUZ * (ABNORMAL) [facility] TOTAL PROTEIN 24 HOUR URINE (08/29/2025 8:00 AM EDT)Component ValueRef RangeTest MethodAnalysis TimePerformed AtPathologist SignatureTOTAL PROTEIN URINE GZHHNH19.6(H)<=11.9 mg/dLTBHTOTAL VOLUME 24 HOUR XPNRK220qC/24hr TBHTBH TOTAL PROTEIN 24 HOUR NADPC016.6<=149.1 mg/24hrTBHSpecimen (Source) Anatomical Location / LateralityCollection Method / VolumeCollection Time Received Time08/29/2025 8:00 AM EDT1 10:35 AM EDT Narrative [facility] - 08/29/2025 12:08 PM EDT Authorizing ProviderResult TypeResult StatusGeneric External Data Provider CLINISYNCFinal ResultPerforming OrganizationAddressCity/State/ZIP CodePhone Number [facility]ENN[facility] * URINE CULTURE, ROUTINE (08/25/2025 8:10 AM EDT)ComponentValueRef RangeTest MethodAnalysis TimePerformed AtPathologist SignatureURINE CULTURE, ROUTINE ??Urine Culture, Routine TBHURINE CULTURE, ROUTINEMixed urogenital floraTBHURINE CULTURE, OLFQQLS67,000- 50,000 colony forming units per mLTBHURINE CULTURE, ROUTINEPerformed at: [facility] LabTrinity Health Shelby HospitalTBHURINE CULTURE, [id number] [place], [place] [id number] URINE CULTURE, ROUTINELab Director: Cm Sandoval PhD, Phone: [phone] Specimen (Source)Anatomical Location / LateralityCollection Method / Volume Collection TimeReceived Time08/25/2025 8:10 AM EDT08/25/2025 8:30 AM EDT Narrative [facility] - 08/26/2025 10:07 PM EDT Authorizing ProviderResult TypeResult StatusGeneric External Data ProviderLAB BLOOD ORDERABLESFinal ResultPerforming OrganizationAddressty/State/ZIP Code Phone Number [facility] * Pap Smear (08/18/2024 12:00 AM EDT)Specimen (Source)Anatomical Location / LateralityCollection Method / VolumeCollection TimeReceived TimeSwabCervical swab / Unknown Narrative Authorizing ProviderResult TypeResult StatusFazio Nurse Noms Bcp ObLAB CYTOLOGY ORDERABLESFinal ResultPerforming OrganizationAddressCity/State/ZIP CodePhone Number EXTERNAL LAB * THINPREP PAP AND HPV MRNA E6/E7 W/RFL HPV 16,18/45 (09/03/2023 4:00 PM EDT) Narrative Authorizing ProviderResult TypeResult StatusAmy Turin PALAB BLOOD ORDERABLES Final ResultPerforming OrganizationAddressCity/State/ZIP CodePhone Number EXTERNAL LAB from Last 3 Months or Most Recently Relevant to Health Maintenance Insurance Care Teams Team MemberRelationshipSpecialtyStart DateEnd Date Eliceo Beltran DO [address] [place] [address] PCP - GeneralFamily Medicine02/14/24 Eliceo Beltran DO [address] [place] [address] PCP - Medical [place] [employer]07/27/2412
--- OUTSIDE RECORDS SUMMARY | 2025-11-13 08:10 | XMS_ITS | Clinical Summary ---
Author Organization [employer] tem Address [facility] [id number] [address] [place] [address] Care Team Providers Care Horticultural Farmer Name Role Phone Cruz Rodríguez MD Primary Care Provider [phone] Allergies No known active allergies Medications MedicationSigDispense [...] ProblemNoted DateDiagnosed DateEssential hypertension affecting in third qpxsgexpl89/10/2025Insulin controlled gestational diabetes mellitus (GDM) in third bueztgrfz88/26/2025Estimated Date of DeliveryCommentsYes 11/28/2025ased on last menstrual period of 02/21/2025 (Exact Date) Encounters DateTypeDepartmentCare FmgdGmerqstczkv40/09/2025 3:08 PM EST - 11/03/2025 5:57 PM ESTHospital Encounter [facility] [address] [place] [address] Trista Leach, Insulin controlled gestational diabetes mellitus (GDM) in third trimester (Primary Dx) Discharge Disposition: Home11/03/2025 2:30 PM ESTOffice Visit Maternal- Medicine at [facility] [address] [place] [address] Kayleigh Rizzo, PA-C Insulin controlled gestational diabetes mellitus (GDM) in third trimester (Primary Dx); Essential hypertension affecting in third xvwuvfxno84/07/2025Travel 10/28/20254873Ywzhxg08/25/2025Telephone Maternal- Medicine at [facility] [address] [place] [address] Cha Harris RN 10/20/2025Orders Only Maternal- Medicine at [facility] [address] [place] [address] Kayleigh Rizzo, PA-Natividad Essential hypertension affecting in third aqgbagulk72/14/2025Orders Only Maternal- Medicine at [facility] [address] [place] [address] Zora Samuels, DIALLO Essential hypertension affecting in third trimester (Primary Dx); Insulin controlled gestational diabetes mellitus (GDM) in third trimester 10/08/2025Orders Only Maternal Medicine [place] [address] [facility] [address] [place] [address] Danae Ramirez, RN Insulin controlled gestational diabetes mellitus (GDM) in third trimester (Primary Dx); Essential hypertension affecting in third trimester; Encounter for follow-up ultrasound of anatomy; History of pre-eclampsia in prior , currently ; Hx of delivery, currently , second xewgukxjp21/11/2025 2:30 PM ESTTelemedicine Maternal- [facility] at [facility] [address] [facility] [place] [address] Kayleigh Rizzo, PA-C Insulin controlled gestational diabetes mellitus (GDM) in third trimester (Primary Dx); Essential hypertension affecting in third ekkzhkfoy38/11/2025Travel 10/05/2025Telephone Maternal- Medicine at [facility] [address] [place] [address] Anjana Davalos, DIALLO 10/04/20259211Knodyl26/03/2025Telephone Maternal- Medicine at [facility] [address] [place] [address] Cha Harris, DIALLO 09/28/2025Orders Only Maternal- Medicine at [facility] [address] [place] [address] Kayleigh Rizzo, PA-C Essential hypertension affecting in third ivjqomqgk23/27/2025Telephone [facility] at [facility] [address] [facility] [place] [address] Verito Gudino LD 09/21/2025Remote Patient Monitoring [facility] at [facility] [address] [facility] [place] [address] Kayleigh Rizzo, PA-C Insulin controlled gestational diabetes mellitus (GDM) in third trimester (Primary Dx); Essential hypertension affecting in third ggfsukdsx32/23/2025Orders Only Maternal- Medicine at [facility] [address] [facility] [place] [address] Camila Arciniega, RECORD MAKER-CNM Essential hypertension affecting in third fwplkeogp44/22/2025Telephone Maternal- Medicine at [facility] [address] [place] [address] Cha Harris, DIALLO 09/15/2025Orders Only Maternal- Medicine at [facility] [address] [place] [address] Kayleigh Rizzo, FORREST Essential hypertension affecting in third bizqhpyrr22/16/2025 11:00 AM EDTTelemedicine Maternal Medicine [place] [address] [facility] [address] [place] [address] Quynh Clements MD 28 weeks gestation of (Primary Dx); Insulin controlled gestational diabetes mellitus (GDM) in second trimester; Essential hypertension affecting in third xrfikjwcx42/16/2025Orders Only Maternal- Medicine at [facility] [address] [place] [address] Zora Samuels RN Essential hypertension affecting in third trimester (Primary Dx); Insulin controlled gestational diabetes mellitus (GDM) in second trimester; Encounter for follow-up ultrasound of lneqptq9809/10/20259185Owsqay90/10/2025 3:00 PM EDTOffice Visit Maternal- Medicine at [facility] [address] [place] [address] Jean Carlos Denise MD Diet controlled gestational diabetes mellitus (GDM) in second trimester (Primary Dx); Essential hypertension affecting in third mvezdkcub48/08/2025Travel 09/01/2025Telephone Maternal- Medicine at [facility] [address] [place] [address] Cha Harris, DIALLO 08/24/2025 1:30 PM EDTSupport Visit Maternal- Medicine at [facility] [address] [place] [address] Teena Sarmiento RN Fischer, Kelli, RD Gestational diabetes mellitus (GDM) in second trimester, gestational diabetes method of control wfoiuocwxak49/28/7084Mjdban24/27/6081Wofcer54/26/2025bstract Maternal- Medicine at [facility] [address] [place] [address] External, Scanning Provider 08/19/2025Orders Only Maternal- Medicine at [facility] [address] [place] [address] Ref Prov, Not In System 08/18/2025bstract [facility]- Medicine at [facility] [address] [place] [address] Quynh Clements MD 08/18/2025Orders Only Maternal- Medicine at [facility] [address] [place] [address] Khalida Garrett RN History of pre-eclampsia in [...] or more drinks on one occasion?Never09/10/2025hildcareAnswer Date OduwyjokUikexwjneNkqqyvj81/13/2019EmploymentAnswerDate RecordedEmployment Hwjkhjp2305/08/2019Hunger ScreeningAnswerDate RecordedWithin the past 12 months we worried whether our food would run out before we got money to buy more.Never True09/10/2025Within the past 12 months the food we bought just didn't last and we didn't have money to get more.Never True09/10/2025Purpose - LifeAnswerDate RecordedPurpose and direction in lqduNlpotdz13/11/2021Estimated Date of PbmizyphMjqberqlWjv88/03/2026Based on last menstrual period of 02/21/2025 (Exact Date)Sex and Gender InformationValueDate RecordedSex Assigned at BirthNot on fileLegal MziRbnpbo22/07/2019 2:55 PM ESTGender IdentityNot on fileSexual OrientationNot on file Last Filed Vital Signs Vital SignReadingTime TakenCommentsBlood Nmuaoenl466/6711/03/2025 4:45 PM EST Bmucg509111/03/2025 4:45 PM OTUYmywjfogcfp08.6 ??C (97.8 ??F)11/03/2025 3:26 PM ESTRespiratory Gjbi792601/04/2025 3:26 PM ESTOxygen Dsuousrxja01%12/10/2018 11:10 AM ESTInhaled Oxygen Concentration--Utiahm82 kg (172 lb)11/03/2025 3:26 PM EST Dvvace133.5 cm (5' 2 )11/03/2025 3:26 PM ESTBody Mass Index31.4611/03/2025 3:26 PM EST Plan of Treatment Health MaintenanceDue DateLast DoneCommentsDepression Ktdcppbns97/08/2007dult BMI Follow Up Plan2013DTaP,Tdap and Td Vaccines (7 - Td or Tdap)2024 2014, 05/03/2000, 12/29/1997, Additional history existsInfluenza Vaccine //2014Adult BMI Gkhmlidup73Tobacco Screening Pap Smear09/042431//4RSV ( or age 60+ yrs) (No Doses Required)Completed Medical Devices Not on file Procedures Procedure NamePriorityDate/TimeAssociated DiagnosisCommentsCBC (NO DIFF)STAT 11/03/2025 3:54 PM EST URIC HXNSUCJM77/09/2025 3:54 PM EST IJRLFNB3911/03/2025 3:54 PM EST COMPREHENSIVE METABOLIC DJZDIGGQA53/09/2025 3:54 PM EST PROTEIN CREAT CWOSOZSYH44/09/2025 3:39 PM EST US MFM OB FOLLOW-UP, 1 IPTXSKdkbwoa59/03/2025 12:08 PM EST Essential hypertension affecting in third trimester Insulin controlled gestational diabetes mellitus (GDM) in third trimester US MFM OB FOLLOW-UP, 1 FKUPHWvzpuor04/13/2025 8:55 AM EST Essential hypertension affecting in third trimester Insulin controlled gestational diabetes mellitus (GDM) in second trimester Encounter for follow-up ultrasound of anatomy US MFM COMPREHENSIVE ANATOMIC FTQPSMXxzypli10/16/2025 10:56 AM EDT History of pre-eclampsia in prior , currently GLUCOSE TOLERANCE, 3 ZCYQTEjqxxpj03/20/2025 GLUCOSE TOLERANCE, FGPPMAHLpmkxav24/20/2025 GLUCOSE TOLERANCE, 1 WGENDfhscvm69/20/2025 SECOND HOUR GLUCOSE TOLERANCE 100 GM WXEHLworgcm10/20/2025 from Last 3 Months Results * LDH (11/03/2025 3:54 PM EST)ComponentValueRef RangeTest MethodAnalysis Time Performed AtPathologist BtegltmilPXX805259 - 235 U/L101/04/2025 4:52 PM EST [facility] LABORATORYSpecimen (Source)Anatomical Location / LateralityCollection Method / VolumeCollection TimeReceived TimeBloodVenous blood / UnknownVenipuncture / Dicrpdo0411/03/2025 3:54 PM EST11/03/2025 4:18 PM EST Narrative Authorizing ProviderResult TypeResult StatusAllpia Hernandez RECORD MAKER-CNMLAB BLOOD ORDERABLESFinal ResultPerforming OrganizationAddressCity/State/ZIP CodePhone Number [facility] [address] [place] [address], * (ABNORMAL) CBC without diff (11/03/2025 3:54 PM EST)ComponentValueRef Range Test MethodAnalysis TimePerformed AtPathologist NwsfxiqvwQAZ98.3(H)4 - 11 10^11/03/2025 4:30 PM [facility] LABORATORYRBC Count4.07 3.8 - 5.2 10^11/03/2025 4:30 PM [facility] Ektbhacdwg56.311.7 - 15.5 g/dL11/03/2025 4:30 PM [facility] CYLMVMFSYIXfciunsncj71.935 - 47 %11/03/2025 4:30 PM [facility] OBTZZKIFRUEDD6511 - 100 fL11/03/2025 4:30 PM [facility] GCSZJZEXOCVOB59.327 - 34 pg11/03/2025 4:30 PM [facility] OZBIUYBJZEERLK01.432 - 36 g/dL11/03/2025 4:30 PM [facility] IBZYDEXBVKXMF67.611.5 - 15 %11/03/2025 4:30 PM [facility] LABORATORYPlatelet Ieswc220613 - 450 10^L101/04/2025 4:30 PM [facility] LABORATORYMPV8.17 - 12 fL11/03/2025 4:30 PM [facility] LABORATORYSpecimen (Source)Anatomical Location / Laterality Collection Method / VolumeCollection TimeReceived TimeBloodVenous blood / UnknownVenipuncture / Rcjxbbm4311/03/2025 3:54 PM EST11/03/2025 4:18 PM EST Narrative Authorizing ProviderResult TypeResult StatusDeirdre Hernandez RECORD MAKER-CNMLAB BLOOD ORDERABLESFinal ResultPerforming OrganizationAddressty/State/ZIP CodePhone Number [facility] [address] [place] [address], * Uric acid (11/03/2025 3:54 PM EST)ComponentValueRef RangeTest MethodAnalysis TimePerformed AtPathologist SignatureURIC ACID6.02.6 - 7.2 mg/dL11/03/2025 4:52 PM [facility] LABORATORYSpecimen (Source)Anatomical Location / LateralityCollection Method / VolumeCollection TimeReceived Time BloodVenous blood / UnknownVenipuncture / Hmtwyms5511/03/2025 3:54 PM EST 11/03/2025 4:18 PM EST Narrative Authorizing ProviderResult TypeResult StatusDeirdre Hernandez RECORD MAKER-CNMLAB BLOOD ORDERABLESFinal ResultPerforming OrganizationAddressCity/State/ZIP CodePhone Number [facility] [address] [place] [address], * (ABNORMAL) Comprehensive metabolic panel (11/03/2025 3:54 PM EST)Component ValueRef RangeTest MethodAnalysis TimePerformed AtPathologist SignatureSODIUM 695402 - 146 mmol/L101/04/2025 4:52 PM [facility] POTASSIUM3.73.5 - 5.0 mmol/L101/04/2025 4:52 PM [facility] SMOXSQQHMZOHSJRGDA38445 - 109 mmol/L101/04/2025 4:52 PM [facility] LABORATORYCARBON KWUYZFF81(L)22 - 32 mmol/L101/04/2025 4:52 PM [facility] LABORATORYANION RLA144 - 15 mmol/L101/04/2025 4:52 PM EST [facility] LABORATORYBLOOD UREA GAZSPSMX311 - 23 mg/dL11/03/2025 4:52 PM [facility] LABORATORYCREATININE0.580.40 - 1.00 mg/dL 11/03/2025 4:52 PM [facility] LABORATORYComment:METHOD TRACEABLE TO IDMS HEODLVOYGFSHCOQ933(H)65 - 99 mg/dL11/03/2025 4:52 PM EST [facility] LABORATORYCALCIUM8.68.5 - 10.5 mg/dL11/03/2025 4:52 PM [facility] LABORATORYTOTAL PROTEIN6.66.0 - 8.0 g/dL 11/03/2025 4:52 PM [facility] LABORATORYALBUMIN3.73.2 - 5.3 g/dL11/03/2025 4:52 PM [facility] LABORATORYALKALINE PJZEZRPBLNS658(H)39 - 130 U/L101/04/2025 4:52 PM [facility] RGUDTDQYXJXHM54<=41 U/L101/04/2025 4:52 PM [facility] VAKVVLTTGMUOW60<=31 U/L101/04/2025 4:52 PM [facility] LABORATORYBILIRUBIN,TOTAL1.00.3 - 1.2 mg/dL11/03/2025 4:52 PM [facility] LABORATORYEGFR Non-Race Dependent>90>=60 ml/min/1.73sq.m 11/03/2025 4:52 PM [facility] LABORATORYComment: Reported eGFR is based on the CKD-EPI 2020 equation that does not use a race coefficient. Specimen (Source)Anatomical Location / LateralityCollection Method / Volume Collection TimeReceived TimeBloodVenous blood / UnknownVenipuncture / Unknown 11/03/2025 3:54 PM EST11/03/2025 4:18 PM EST Narrative Authorizing ProviderResult TypeResult StatusAllison Hernandez RECORD MAKER-CNMLAB BLOOD ORDERABLESFinal ResultPerforming OrganizationAddressCity/State/ZIP CodePhone Number [facility] [address] [place] [address], * Protein creat ratio (11/03/2025 3:39 PM EST)ComponentValueRef RangeTest Method Analysis TimePerformed AtPathologist SignatureURINE PROTEIN, RANDOM (MG/L)110 <120 mg/L101/04/2025 4:36 PM [facility] LABORATORYURINE CREATININE,RDM90.72mg/dL11/03/2025 4:36 PM [facility] LABORATORYU/PRO/PLEAT PATTERNMAKER RATIO CALC0.12<=0. 4:36 PM [facility] LABORATORYSpecimen (Source)Anatomical Location / LateralityCollection Method / VolumeCollection TimeReceived TimeUrineUrine specimen collection, clean catch / UnknownCollection / Zecailc0711/03/2025 3:39 PM EST11/03/2025 4:01 PM EST Narrative [facility] - 11/03/2025 4:36 PM EST Nephrotic Syndrome is associated with ratios >3.5 Authorizing ProviderResult TypeResult StatusAllison Hernandez RECORD MAKER-CNMURINE ORDERABLESFinal ResultPerforming OrganizationAddressCity/State/ZIP CodePhone Number [facility] [address] [place] [address], * [facility] OB FOLLOW-UP, 1 FETUS (10/28/2025 12:08 PM EST) Only the most recent of3 resultswithin the time period is included. Anatomical RegionLateralityModalityOB-GYNUltrasoundSpecimen (Source)Anatomical Location / LateralityCollection Method / VolumeCollection TimeReceived Time 10/28/2025 11:14 AM EST Narrative 10/28/2025 4:49 PM EST NAME: ??JAYY REYNAGA : 1995 SEX: F Accession Number: [id number] ORDERING PHYSICIAN: JEAN CARLOS DENISE REFERRING PHYSICIAN: JONY MEJÍA Coding Procedures ? 37722: Ultrasound, uterus, real time with image documentation, follow up,transabdominal ? approach per fetus Indication Screening for follow-up survey, Gestational diabetes, Chronic hypertension affecting , History of prior with pre-eclampsia , History of prior with delivery , Previous surgery to cervix -(D&C). History OB History ? 2. Para 1 ? C0H5P6L2 Current Cell free DNA ?Low Risk analysis [...] (oz) ? 5 oz EFW by: ?Hadlock (VPR-IT-AO-FL) Extended Tibia ??57.2 mm 33w 4d 21% Gerda Social Media Intern ? 1.4 mm Head / Face / Neck Cephalic index 0.82 ? 64% Nicolaides Nasal bone: ?documented previously Extremities / Bony Struc FL / BPD ? 0.70 FL / HC ?0.20 FL / AC ?0.20 Other Structures FHR ?129 bpm Anatomy The following structures appear normal: Head/Neck: Cranium. Lateral ventricles. Cavum septi pellucidi. Parenchyma. Heart/Thorax: 4-chamber view. RVOT view. LVOT view. 3-vessel view. 5-rixqbx-nynpnkt view. Situs. Aortic arch view. ? Interventricular [...] is a normal variant. Recommendations Please see [facility] recommendations from prior clinical and/or ultrasound [...] primary OB provider unless otherwise specified by [facility]. Results forwarded to ordering provider so they can follow up with the patient as necessary. Procedure Note Trinity Parson MD - 10/28/2025 NAME: JAYY REYNAGA : 1995 SEX: F Accession Number: [id number] ORDERING PHYSICIAN: JEAN CARLOS DENISE REFERRING PHYSICIAN: JONY MEJÍA Coding Procedures 32149: Ultrasound, uterus, real time with image documentation, follow up, transabdominal approach per fetus Indication Screening for follow-up survey, Gestational diabetes, Chronic hypertension affecting , History of prior with pre-eclampsia , History of prior with delivery ,Previous surgery to cervix -(D&C). History OB History 2. Para 1 F5L8P6A4 Current Cell free DNA Low Risk analysis [...] EFW (oz) 5 oz EFW by: Hadlock (ZJL-MR-XU-FL) Extended Tibia 57.2 mm 33w 4d 21% Gerda Social Media Intern 1.4 mm Head / Face / Neck Cephalic index 0.82 64% Nicolaides Nasal bone: documented previously Extremities / Bony Struc FL / BPD 0.70 FL / HC 0.20 FL / AC 0.20 Other Structures FHR 129 bpm Anatomy The following structures appear normal: Head/Neck: Cranium. Lateral ventricles. Cavum septi pellucidi.Parenchyma. Heart/Thorax: 4-chamber view. RVOT view. LVOT view. 3-vessel view. 8-ajfapm-ukknvap view. Situs. Aortic arch view. Interventricular septum. [...] is a normal variant. Recommendations Please see [facility] recommendations from prior clinical and/or ultrasoundreport documentation. anatomic survey is incomplete due to late gestational age andsuboptimal visualization. Patient is not scheduled to return for additional ultrasound. Pleasereschedule for specific concerns or indications. The patient states medical induction of labor is schedule for 11/09/25. Subsequent follow up or other follow up as clinically determined byprimary OB provider unless otherwise specified by [facility]. Results forwarded to ordering provider so they can follow up with thepatient as necessary. Authorizing ProviderResult TypeResult StatusJean Carlos Denise MDYomaira ORDERABLES Final Result * 2nd hr Glucose Tolerance 100 gm load (08/15/2025)ComponentValueRef RangeTest MethodAnalysis TimePerformed AtPathologist SignatureGlucose Tolerance Test 2 Nelf619ODCZGDIX TRANSCRIBED RESULTSSpecimen (Source)Anatomical Location / LateralityCollection Method / VolumeCollection TimeReceived TimeBloodVenous blood / Unknown Narrative Authorizing ProviderResult TypeResult StatusNot In System Ref Specialty [employer] BLOOD ORDERABLESFinal ResultPerforming OrganizationAddressCity/State/ZIP CodePhone Number MANUALLY TRANSCRIBED RESULTS * Glucose tolerance, 1 hour (08/15/2025)ComponentValueRef RangeTest Method Analysis TimePerformed AtPathologist SignatureGlucose Tolerance Test 1 Iyjz087 MANUALLY TRANSCRIBED RESULTSSpecimen (Source)Anatomical Location / Laterality Collection Method / VolumeCollection TimeReceived TimeBloodVenous blood / Unknown Narrative Authorizing ProviderResult TypeResult StatusNot In System Ref PercelloLAB BLOOD ORDERABLESFinal ResultPerforming OrganizationAddressCity/State/ZIP CodePhone Number MANUALLY TRANSCRIBED RESULTS * Glucose tolerance, 3 hours (08/15/2025)ComponentValueRef RangeTest Method Analysis TimePerformed AtPathologist SignatureGlucose Tolerance Test 3 Koaj301 MANUALLY TRANSCRIBED RESULTSSpecimen (Source)Anatomical Location / Laterality Collection Method / VolumeCollection TimeReceived TimeBloodVenous blood / Unknown Narrative Authorizing ProviderResult TypeResult StatusNot In System Ref ProvLAB BLOOD ORDERABLESFinal ResultPerforming OrganizationAddressCity/State/ZIP CodePhone Number MANUALLY TRANSCRIBED RESULTS * Glucose, tolerance fasting (08/15/2025)ComponentValueRef RangeTest Method Analysis TimePerformed AtPathologist SignatureGlucose Tolerance Test Nnbgewc59 MANUALLY TRANSCRIBED RESULTSSpecimen (Source)Anatomical Location / Laterality Collection Method / VolumeCollection TimeReceived TimeBloodVenous blood / Unknown Narrative Authorizing ProviderResult TypeResult StatusNot In System Ref ProvLAB BLOOD ORDERABLESFinal ResultPerforming OrganizationAddressCity/State/ZIP CodePhone Number MANUALLY TRANSCRIBED RESULTS from Last 3 Months Insurance MemberSubscriberPlan / Payer (Effective 2024-Present)Name:Driss Gama Relation to Subscriber:SelfName:Driss Gama Payer ID:Not on file Type:Not on file Address: [place] [id number] Care Teams Team MemberRelationshipSpecialtyStart DateEnd Date Cruz Rodríguez MD [address] [place] [address] PCP - GeneralFatnly Medicine12/02/18
--- OUTSIDE RECORDS SUMMARY | 2025-11-13 08:10 | XMS_ITS | Encounter Summary ---
Author Organization [facility] Address [address] [place] [address] Care Team Providers Care Vessel Manager Name Role Phone NirajEliceo kauffman Primary Care Provider [phone] Charlottecarol Eliceo Hurtado DO Unavailable [phone] Encounter Details DateTypeDepartmentCare Team (Latest Contact Info)Lhftdmmyakl66/04/2025Clinisync Result Encounter [facility] Unsolicited Nathan Pop DO [address] [place] [address] Social History Tobacco UseTypesPacks/DayYears UsedDateSmoking Tobacco: NeverSmokeless Tobacco: NeverAlcohol UseStandard Drinks/WeekCommentsNever0 (1 standard drink = 0.6 oz pure alcohol)caffeine: 1-2 cups per day, coffee and kqaD7362 Health Literacy AnswerDate RecordedHow often do you [...] relatives?Once a week12/29/2024How often do you attend pentecostal or faith services?Patient etovdisz44/03/2025Do you belong to any clubs or organizations such as pentecostal groups, unions, [employer] or athletic leodan ups, or school groups?No12/29/2024How [...] Health Questionnaire-2 Score0 07/30/2025[facility] [place] [facility] Occupational Health - Occupational Stress QuestionnaireAnswerDate RecordedDo you feel stress - tense, restless, nervous, or anxious, or unable to sleep at night because yourmind is troubled all the time - these days?Only a zpqhbq6512/29/2024Exercise Vital SignAnswerDate Recorded On average, how many [...] or slept in [facility] (including now)?No09/19/2023Housing Stability Vital SignAnswerDate RecordedIn the [...] the highest degree you have received?High school ddqbtokp71/29/2023 Estimated Date of KuvrzmmnWisnictpWdw95/03/2026ased on last menstrual period of 02/21/2025Sex and Gender InformationValueDate RecordedSex Assigned at BirthNot on fileLegal BemZpolor99/15/2023 7:18 PM EDTGender IdentityNot on file Sexual OrientationNot on 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 Not on fileNot on fileNot on filedocumented as of this encounter Plan of Treatment DateTypeDepartmentCare Team (Latest Contact Info)Fxjffeemeot63/26/2026 11:20 AM ESTPostpartum Visit [facility] [address] [facility] [place] [address] Nathan Pop DO [address] [place] [address] [address] [place], [place] [id number] documented as of this encounter Procedures Procedure NamePriorityDate/TimeAssociated DiagnosisCommentsSTREP GP B CULTURE+OKSHUcrbdwt95/04/2025 9:28 AM EST documented in this encounter [...] noted.TBHSTREP GP B CULTURE+RFLX Performed at: - [facility]ervilleTBHSTREP GP B CULTURE+[id number] [place], [place] [id number] GP B CULTURE+RFLXLab Director: Cm Sandoval PhD, Phone: [phone] (Source)Anatomical Location / Laterality Collection Method / VolumeCollection TimeReceived Time10/29/2025 9:28 AM EST 10/29/2025 12:08 PM EST Narrative [facility] - 11/02/2025 4:10 PM EST Authorizing ProviderResult TypeResult StatusCorey Kiesha DOLAB BLOOD ORDERABLES Final ResultPerforming OrganizationAddressCity/State/ZIP CodePhone Number [facility] documented in this encounter Visit Diagnoses Not on filedocumented in this encounter Care Teams Team MemberRelationshipSpecialtyStart DateEnd Date Eliceo Beltran DO [address] [place] [address] PCP - GeneralFamily Medicine02/14/24 Eliceo Beltran DO [address] [place] [address] PCP - Medical [place] [employer]07/27/2412documented as of this encounter
--- OUTSIDE RECORDS SUMMARY | 2025-11-13 08:10 | XMS_ITS | Encounter Summary ---
Author Organization [facility] Address [address] [place] [address] Care Team Providers Care Painting Worker Name Role Phone Eliceo Beltran Primary Care Provider [phone] CharlottegeovaniEliceo kauffman Unavailable [phone] Encounter Details DateTypeDepartmentCare Team (Latest Contact Info)Qhlzsgachxp78/06/2025Clinisync Result Encounter [facility] External Department Unsolicited Steph Keane, DEVYN [address] [facility] [place] [address] Social History Tobacco UseTypesPacks/DayYears UsedDateSmoking Tobacco: NeverSmokeless Tobacco: NeverAlcohol UseStandard Drinks/WeekCommentsNever0 (1 standard drink = 0.6 oz pure alcohol)caffeine: 1-2 cups per day, coffee and [id number] Health Literacy AnswerDate RecordedHow often do you [...] week12/29/2024How often do you attend voodoo or jew services?Patient avtpqotv79/03/2025Do you belong to any clubs or organizations such as voodoo groups, unions, [employer] or athletic leodan ups, or school groups?No12/29/2024How often do you attend meetings of the clubs or organizations you belong to?Patient pgjrbuzu55/03/2025re you , , , , never , [...] at all12/29/2024PHQ-2AnswerDate RecordedPatient Health Questionnaire-2 Score0 07/30/2025[facility] [place] of Occupational Health - Occupational Stress QuestionnaireAnswerDate RecordedDo you feel stress - tense, restless, nervous, or anxious, or unable to sleep at night because yourmind is troubled all the time - these days?Only a xjipeo9412/29/2024Exercise Vital SignAnswerDate Recorded On average, how many [...] the highest degree you have received?High school tegwzwvj27/29/2023 Estimated Date of PiqbrkibMagyhjozYpk35/03/2026ased on last menstrual period of 02/21/2025Sex and Gender InformationValueDate RecordedSex Assigned at BirthNot on fileLegal NwtOuvknq08/15/2023 7:18 PM EDTGender IdentityNot on file Sexual OrientationNot on 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 Not on fileNot on fileNot on filedocumented as of this encounter Plan of Treatment DateTypeDepartmentCare Team (Latest Contact Info)Gmxjpgdspyn16/26/2026 11:20 AM ESTPostpartum Visit [facility] [place] [facility] [address] [place] [phone] Nathan Pop, DO [address] [facility] [place] [address] documented as of this encounter Procedures Procedure NamePriorityDate/TimeAssociated DiagnosisCommentsUS OB BPP W NON-YZTQDX2610/31/2025 12:16 PM EST documented in this encounter Results * US OB BPP W NON-STRESS (10/31/2025 12:16 PM EST)Anatomical Region LateralityModalityOtherSpecimen (Source)Anatomical Location / Laterality Collection Method / VolumeCollection TimeReceived Time10/31/2025 12:16 PM EST Narrative 10/31/2025 12:19 PM EST [facility] ?[address] ? [place] [address] ? Ultrasound Report ? Signed ? Patient: DRISS GAMA ?MR#: [id number] ?? : 1995 ?Acct:[id number] ?? Age/Sex: 30 / F ?ADM Date: 10/31/25 ?? Loc: US ? Attending Dr: Steph Keane ? Ordering Physician: Steph Keane ?? Date of Service: 10/31/25 ?? Procedure(s): US OB BPP w non-stress ?? Accession Number(s): [id number] ? cc: Steph Keane; Yomaira BELTRAN ? [facility] ? [address] ? [place] [address] ? Patient Name: ?? DRISS Daniel GAMA ? MRN: [id number] ? date: 1995 ?Sex: F ?? Assigned Patient Location: [facility] ?? Current Patient Location: ? Accession/Order Number: [id number] ?? Exam Date: 10/31/2025 ??10:08 ?Report Date: [...] Dictation Location: RADIO-PC-29 ? Electronically authenticated by: [id number] ??Y ?? Date: 10/31/2025 ??12:16 ? Dictated By: ?Chu Amaya M.D. ? Signed By: ?10/31/25 1219 ? DD/ 1216 ? TD/TT: ? Barrel Raiser: Procedure Note Radiology, Radiologist, MD - 10/31/2025 [place] [address] Ultrasound Report Signed Patient: DRISS GAMA MMR#: [id number] : 1995Acct:[id number] Age/Sex: 30 / FADM Date: 10/31/25 Loc: US Attending Dr: Steph Keane Ordering Physician: Steph Keane Date of Service: 10/31/25 Procedure(s): US OB BPP w non-stress Accession Number(s): [id number] cc: Steph Keane; Yomaira BELTRAN The [place] [id number] Patient Name: DRISS GAMA MRN: [id number] date: 1995 Sex: F Assigned Patient Location: [facility] Current Patient Location: Accession/Order Number: [id number] Exam Date: 10/31/2025 10:08 Report Date: 10/31/2025 12:16 At the request of: STEPH KEANE Procedure: US OB BPP w non-stress Ultrasound biophysical profile INDICATION: -induced hypertension COMPARISON: 10/23/2025 FINDINGS/ IMPRESSION: Cephalic position. 8 out of 8 score biophysical profile. LEONEL 10.6 cm. heart 141 bpm Impression dictated by: Chu Amaya M.D. 10/31/2025 12:16 PM Dictation Location: [facility] Electronically authenticated by: [id number] Y Date: :16 Dictated By: Chu Amaya M.D. Signed By:10/31/25 1219 DD/ 1216 TD/TT: Barrel Raiser: Authorizing ProviderResult TypeResult StatusSteph Keane NPCLINISYNC IMAGING Final Result documented in this encounter Visit Diagnoses Not on filedocumented in this encounter Care Teams Team MemberRelationshipSpecialtyStart DateEnd Date Eliceo Beltran DO [address] [place] [address] [facility] - [facility]02/14/24 Eliceo Beltran DO [address] [place] [address] PCP - Medical [place] Commercial/documented as of this encounter
--- OUTSIDE RECORDS SUMMARY | 2025-11-13 08:10 | XMS_ITS | Encounter Summary ---
Author Organization [facility] Address [address] [place] [address] Care Team Providers Care Consulting Application Engineer Name Role Phone Eliceo Beltran DO Primary Care Provider CharlottecarolEliceo Unavailable [phone] Encounter Details DateTypeDepartmentCare Team (Latest Contact Info)Oakvduevmht39/08/2025Telephone [facility] [place] [facility] [address] [email or web address] [address] Nathan Pop DO [address] [place], [facility] Social History Tobacco UseTypesPacks/DayYears UsedDateSmoking Tobacco: NeverSmokeless Tobacco: NeverAlcohol UseStandard Drinks/WeekCommentsNever0 (1 standard drink = 0.6 oz pure alcohol)caffeine: 1-2 cups per day, coffee and [id number] Health Literacy AnswerDate RecordedHow often do you [...] often do you attend oriental orthodox or druze services?Patient ejjzegpa42/03/2025Do you belong to any clubs or organizations such as oriental orthodox groups, unions, [employer] or athletic leodan ups, or school groups?No12/29/2024How often do you attend meetings of the clubs or organizations you belong to?Patient qgrssysm59/03/2025re you , , , , never , [...] Health Questionnaire-2 Score0 07/30/2025[facility] [place] of Occupational Health - Occupational Stress QuestionnaireAnswerDate RecordedDo you feel stress - tense, restless, nervous, or anxious, or unable to sleep at night because yourmind is troubled all the time - these days?Only a dythrx0312/29/2024Exercise Vital SignAnswerDate Recorded On average, how many [...] the highest degree you have received?High school hlynrahz06/29/2023 Estimated Date of SxktctiuZystalpnHkw2026ased on last menstrual period of 02/21/2025Sex and Gender InformationValueDate RecordedSex Assigned at BirthNot on fileLegal ZyyQtzszj75/15/2023 7:18 PM EDTGender IdentityNot on file Sexual [...] Plan of Treatment DateTypeDepartmentCare Team (Latest Contact Info)Kpfbvifzecs44/26/2026 11:20 AM ESTPostpartum Visit [facility] [place] [facility] [address] [place] [address] Nathan Pop DO [address] [facility] [address] [place] [address] documented as of this encounter Visit Diagnoses Diagnosis Upper respiratory tract infection, unspecified type documented in this encounter Care Teams Team MemberRelationshipSpecialtyStart DateEnd Date Eliceo Beltran DO [address] [place] [address] PCP - GeneralFamily Medicine02/14/24 Eliceo Beltran DO [address] [place] [address] PCP - Medical [place] Commercial/documented as of this encounter
--- OUTSIDE RECORDS SUMMARY | 2025-11-13 08:10 | XMS_ITS | Encounter Summary ---
Author Organization Reeher tem Address [id number] [address] [place] [address] Care Team Providers Care Business Risk Analyst Name Role Phone Cruz Rodríguze MD Primary Care Provider [phone] Encounter Details DateTypeDepartmentCare Team (Latest Contact Info)Arnxtdvilex74/07/2025Travel Social History Tobacco UseTypesPacks/DayYears UsedDateSmoking Tobacco: NeverSmokeless Tobacco: NeverAlcohol UseStandard Drinks/WeekCommentsNo0 (1 standard drink = 0.6 oz pure alcohol)AUDIT-CAnswerDate RecordedQ1: How often do you have a drink containing alcohol?Never09/10/2025Q2: How many drinks containing alcohol do you have on a typical day when you are drinking?Patient does not drink09/10/2025Q3: How often do you have six or more drinks on one occasion?Never09/10/2025hildcareAnswer Date IbprcihuOvzbnvymcRodoemd92/13/2019EmploymentAnswerDate RecordedEmployment Bnfymvu8805/08/2019Hunger ScreeningAnswerDate RecordedWithin the past 12 months we worried whether our food would run out before we got money to buy more.Never True09/10/2025Within the past 12 months the food we bought just didn't last and we didn't have money to get more.Never True09/10/2025Purpose - LifeAnswerDate RecordedPurpose and direction in itdaCjngmdu64/11/2021Estimated Date of LlbtezwfCgitmknyAkg37/03/2026Based on last menstrual period of 02/21/2025 (Exact Date)Sex and Gender InformationValueDate RecordedSex Assigned at BirthNot on fileLegal HgpSgdleh11/07/2019 2:55 PM ESTGender IdentityNot on fileSexual OrientationNot on filedocumented as of this encounter Plan of Treatment Not on file documented as of this encounter Visit Diagnoses Not on filedocumented in this encounter Care Teams Team MemberRelationshipSpecialtyStart DateEnd Date Cruz Rodríguez MD [address] [place] [address] PCP - GeneralFamily Medicine12/02/18documented as of this encounter
--- OUTSIDE RECORDS SUMMARY | 2025-11-13 08:10 | XMS_ITS | Encounter Summary ---
Author Organization [facility] Address [address] [place] [address] Care Team Providers Care Shank Inspector Name Role Phone Eliceo Beltran Primary Care Provider [phone] CharlottegeovaniEliceo kauffman Unavailable [phone] Encounter Details DateTypeDepartmentCare Team (Latest Contact Info)Suzwoiyodlk39/13/2025Clinisync Result Encounter [facility] External Department Unsolicited Steph Keane, EDVYN [address] [facility] [place] [address] Social History Tobacco UseTypesPacks/DayYears UsedDateSmoking Tobacco: NeverSmokeless Tobacco: NeverAlcohol UseStandard Drinks/WeekCommentsNever0 (1 standard drink = 0.6 oz pure alcohol)caffeine: 1-2 cups per day, coffee and [id number] Health Literacy AnswerDate RecordedHow often do you [...] week12/29/2024How often do you attend episcopalian or mandaeism services?Patient yybowvpf22/03/2025Do you belong to any clubs or organizations such as episcopalian groups, unions, [employer] or athletic leodan ups, or school [...] RecordedPatient Health Questionnaire-2 Score0 07/30/2025[facility] [place] of Occupational Health - Occupational Stress QuestionnaireAnswerDate RecordedDo you feel stress - tense, restless, nervous, or anxious, or unable to sleep at night because yourmind is troubled all the time - these days?Only a fajevm5112/29/2024Exercise Vital SignAnswerDate Recorded On average, how many [...] the highest degree you have received?High school acneblim21/29/2023 Estimated Date of MatxdwivUxuzzytjLzq68/03/2026ased on last menstrual period of 02/21/2025Sex and Gender InformationValueDate RecordedSex Assigned at BirthNot on fileLegal BftQfvuys36/15/2023 7:18 PM EDTGender IdentityNot on file Sexual OrientationNot on 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 Not on fileNot on fileNot on filedocumented as of this encounter Plan of Treatment DateTypeDepartmentCare Team (Latest Contact Info)Nufsytfoqzm59/26/2026 11:20 AM ESTPostpartum Visit [facility] [place] [facility] [address] [place] [phone] Nathan Pop, DO [address] [facility] [address] [place] [address] documented as of this encounter Procedures Procedure NamePriorityDate/TimeAssociated DiagnosisCommentsUS OB BPP W NON-RVWLUT8111/07/2025 2:10 PM EST documented in this encounter Results * US OB BPP W NON-STRESS (11/07/2025 2:10 PM EST)Anatomical Region LateralityModalityOtherSpecimen (Source)Anatomical Location / Laterality Collection Method / VolumeCollection TimeReceived Time11/07/2025 2:10 PM EST Narrative 11/07/2025 2:12 PM EST [facility] ?[address] ? [place] [address] ? Ultrasound Report ? Signed ? Patient: DRISS GAMA ?MR#: [id number] ?? : 1995 ?Acct:[id number] ?? Age/Sex: 30 / F ?ADM Date: 11/07/25 ?? Loc: US ? Attending Dr: Steph Keane ? Ordering Physician: Steph Keane ?? Date of Service: 11/07/25 ?? Procedure(s): US OB BPP w non-stress ?? Accession Number(s): [id number] ? cc: Steph Keane; Yomaira BELTRAN ? [facility] ? [address] ? [place] [address] ? Patient Name: ?? DRISS Daniel GAMA ? MRN: [id number] ? date: 1995 ?Sex: F ?? Assigned Patient Location: US ?? Current Patient Location: ? Accession/Order Number: [id number] ?? Exam Date: 11/07/2025 ??10:09 ?Report Date: [...] Dictation Location: RADIO-PC-17 ? Electronically authenticated by: [id number] ??Y ?? Date: 11/07/2025 ??14:10 ? Dictated By: ?Will Faria M.D. ? Signed By: ?11/07/25 1412 ? DD/ 1410 ? TD/TT: ? Maitre D: Procedure Note Radiology, Radiologist, - 11/07/2025 [place] [address] Ultrasound Report Signed Patient: DRISS GAMA MMR#: [id number] : 1995Acct:[id number] Age/Sex: 30 / FADM Date: 11/07/25 Loc: US Attending Dr: Steph Kaene Ordering Physician: Steph Keane Date of Service: 11/07/25 Procedure(s): US OB BPP w non-stress Accession Number(s): [id number] cc: Steph Keane; Yomaira BELTRAN The [address] [address] Patient Name: DRISS GAMA MRN: [id number] date: 1995 Sex: F Assigned Patient Location: US Current Patient Location: Accession/Order Number: [id number] Exam Date: 11/07/2025 10:09 Report Date: 11/07/2025 [...] Faria M.D. 11/07/2025 2:10 PM Dictation Location: [place] [address] Electronically authenticated by: [id number] Y Date: 4:10 Dictated By: Will Faria M.D. Signed By:11/07/25 1412 DD/ 1410 TD/TT: Maitre D: Authorizing ProviderResult TypeResult StatusClintmelissa Royerly NPCLINISYNC IMAGING Final Result documented in this encounter Visit Diagnoses Not on filedocumented in this encounter Care Teams Team MemberRelationshipSpecialtyStart DateEnd Date Eliceo Beltran DO [address] [place] [address] PCP - GeneralFamily Medicine02/14/24 Eliceo Beltran DO [address] [place] [address] PCP - Medical [address] [employer]/documented as of this encounter
--- OUTSIDE RECORDS SUMMARY | 2025-11-13 08:10 | XMS_ITS | Encounter Summary ---
Author Organization [facility] Address [address] [place] [address] Care Team Providers Care Environment Friendly Landscape Designer Name Role Phone Eliceo Beltran Primary Care Provider CharlottecarolEliceo Unavailable [phone] Encounter Details DateTypeDepartmentCare Team (Latest Contact Info)Hxhmilazvzf26/18/2025Patient Outreach [facility] [address] [place] [address] Zenobia Forrest, GODFREY [address] [place] [address] Social History Tobacco UseTypesPacks/DayYears UsedDateSmoking Tobacco: NeverSmokeless Tobacco: NeverAlcohol UseStandard Drinks/WeekCommentsNever0 (1 standard drink = 0.6 oz pure alcohol)caffeine: 1-2 cups per day, coffee and xtjG3923 Health Literacy AnswerDate RecordedHow often do you [...] often do you attend latter day or episcopal services?Patient awllxhrf73/03/2025Do you belong to any clubs or organizations such as latter day groups, unions, [employer] or athletic leodan ups, or school groups?No12/29/2024How often do you attend meetings of the clubs or organizations you belong to?Patient zbczavgd71/03/2025re you , , , , never , [...] hard at all12/29/2024PHQ-2AnswerDate RecordedPatient Health Questionnaire-2 Score0 11/12/2025[facility] [place] of Occupational Health - Occupational Stress QuestionnaireAnswerDate RecordedDo you feel stress - tense, restless, nervous, or anxious, or unable to sleep at night because yourmind is troubled all the time - these days?Only a myiujs4612/29/2024Exercise Vital SignAnswerDate Recorded On average, how many days per week do you engage in moderate to strenuous exercise (like a brisk walk)?3 days02/03/2025On average, how many minutes do you engage [...] place to sleep or slept in 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 Not on fileNot on fileNot on filedocumented as of this encounter Functional Status * Over the past 2 weeks, how often have you been bothered by any of the following problems?QuestionAnswerDate of AssessmentAuthorLittle interest or pleasure in doing thingsNot at all11/12/2025 2:17 PM Zenobia Rodriguez LPN Feeling down, depressed, or hopelessNot at all11/12/2025 2:17 PM Zenobia Rodriguez LPNPatient Health Questionnaire-2 Rvghy19001/13/2025 2:17 PM Zenobia Rodriguez LPN documented as of this encounter Progress Notes * Zenobia Forrest LPN - 11/12/2025 2:07 PM EST Images from the original note were not included. Flowsheet Row Patient Outreach from 11/12/2025 in [facility] with Zenobia Forrest LPN Hospital Information ED, Hospital or Detention Facility Discharge? Hospital Patient has been contacted within two business days of discharge Yes Diagnosis Discharge Date 11/11/25 Discharged To: Home Setting Discharge Hospital [facility] Engagement Call Start Time 1405 Admission Date 11/09/25 Medications Discharge medications reviewed and reconciled from hospital? Yes Is the patient having any side effects they believe may be caused by any medication additions or changes? No Does the patient have all medications ordered at discharge? Yes Nursing Interventions No intervention needed Is the patient taking all medications as directed (includes completed medication regime)? Yes Nursing Interventions Nurse provided patient education Appointments Does the patient have a primary care provider? Yes Does the patient have any upcoming specialty appointments? Yes [PPV Dec 16 per pt] Nursing Interventions Advised patient to keep appointment Self Management Patient Teaching Does the patient have access to their discharge instructions? Yes Nursing Interventions Reviewed instructions with patient What is the patient's perception of their health status since discharge? Improving Is the patient/caregiver able to teach back the hierarchy of who to call/visit for symptoms/problems? PCP, Specialist, Home Health nurse, Urgent Care, ED, 911 Yes Wrap Up Call End Time 1415 MELA complete. Call to pt. Pt reports pain is controlled with Ibuprofen as ordered. Bleeding is described as light lochia, denies clots. Bowels are regular. Pt denies any depression or difficulty coping at this time.. Pt is and supplementing formula reports baby tolerating well. Baby has appt with PEDs tomorrow, 11/12/25. Pt denies any questions, concerns or needs today. PPV 12/17/24 documented in this encounter Plan of Treatment DateTypeDepartmentCare Team (Latest Contact Info)Kurxzdwnkgn94/26/2026 11:20 AM ESTPostpartum Visit [facility] [place] [facility] [address] [place] [phone] Nathan Pop DO [address] [facility] [place] [address] documented as of this encounter Visit Diagnoses Diagnosis (spontaneous vaginal delivery) ([facility] Primary Normal delivery documented in this encounter Care Teams Team MemberRelationshipSpecialtyStart DateEnd Date Eliceo Beltran DO [address] [facility] [address] [place] [address] PCP - GeneralFamily Medicine02/14/24 Eliceo Beltran DO [address] [place] [address] PCP - Medical [employer]07/27/2412documented as of this encounter
--- NOTE | 2025-11-13 12:35 | PC.NURSE ---
Driss and 4 day old Walker arrive with and 3 yo daughter for scheduled follow up appointment. Parents were just seen at [facility] for first appointment with PCP, John Fung. Mom denies complaints for self, states milk is coming in and baby nursing a bit more actively . Continues to use Neotech shield for latches and giving 13 ml - 20 ml of pumped milk. Previously used Similac sensitive for supplements but mom pumping enough for supplemental feed, Driss with VSS and assessment WNL. Initial BP elevated and pt relates just forgot to take my Labetalol this AM Repeat BP is 134/89. Walker is quiet, sleeping. Color nazario to orange color with Jaundice. Heel stick masha bili obtained and sent to lab. Fusses with heel stick only. Infant temp does not register axillary X2. Rectal temp does not register as well until placed in monitor mode. Temp reading 93.8 rectal. Discussed with parents. Mom reports that care provider in office could not obtain temp either. Used 2 different thermometers and a forehead reading with no temp obtained. [facility] released infant for home. Color is very jaundiced, sleepy, only cries when weight obtained. Lungs clear, HR strong, fair tone. TC to Dr Fung, report given on pt status and VS. orders to be placed under radiant warmer. en-route and will see upon arrival. Care for Walker relinquished to Anh LANDRUM Mom discharged and will remain with .
[2025-11-13 12:36] VITALS: BP 134/89; BP 157/92; PULSE 100; TEMP 36.7; O2SAT 99
== END 2025-11-13 12:51 | disposition home or self-care (01) ==
LOC: FBCO 08:06
PROVIDERS: Family Provider Family Medicine; PCP Family Medicine; Visit Provider Obstetrics & Gynecology
DX: Z39.1 Encounter for care and examination of lactating mother (principal)